=== PATIENT | female | born 1955 | race Hispanic/Latino ===

== ENCOUNTER 2018-03-05 19:21 | Emergency (ER) | payer OTHER, SELFPAY ==
--- OUTSIDE RECORDS SUMMARY | 2018-03-05 19:24 | XMS REPORT | Clinical Summary ---
:1955 Author Organization [facility] Address [address] [place] [address] Care Team Providers Name Role Phone Asked, No Pcp Primary Care Provider Unavailable Allergies Active Allergy Reactions Severity Noted Date Comments No Known Drug Allergies 08/19/2015 Medications Medication Sig Dispensed Refills Start Date End Date Status amLODIPine (NORVASC) Take 5 mg by 0 Active 10 mg tablet mouth daily. carvedilol (COREG) 25 Take 25 mg 0 Active MG tablet by mouth every 12 (twelve) hours. furosemide (LASIX) 80 Take 80 mg 0 Active mg tablet by mouth 2 (two) times a day. lisinopril Take 20 mg 0 Active (PRINIVIL,ZESTRIL) 20 by mouth mg tablet daily. ergocalciferol Take 50,000 0 Active (VITAMIN D2) 50,000 Units by unit capsule mouth once a week. insulin GLARGINE Inject under 0 Active (LANTUS) 100 unit/mL the skin See injection (vial) Admin Instructions . 20 units SQ in the am and 12 units SQ at bedtime. sevelamer (RENVELA) Take 3,200 0 Active 800 mg tablet mg by mouth 3 (three) times a day with meals. simvastatin (ZOCOR) Take 40 mg 0 Active 40 MG tablet by mouth nightly. ondansetron (ZOFRAN) Take 4 mg by 0 Active 4 MG tablet mouth every 8 (eight) hours as needed for nausea or vomiting. insulin ASPART Inject 5 0 Active (NovoLOG) 100 unit/mL Units under injection the skin 3 (three) times a day before meals. insulin lispro Inject 5 0 06/28/2017 Discontinued (HumaLOG) 100 unit/mL Units under injection the skin 3 (three) times a day before meals. Active Problems Problem Noted Date Type 2 diabetes mellitus with diabetic chronic kidney disease 06/28/2017 Encounters Date Type Specialty Care Team Description 12/09/2017 Documentation Transplant Michela Cordova Cardio clearance/echo/stress test (Cardio clearance 11/24/17, echo/stress test scanned in media. ) 12/07/2017 Documentation Transplant Desiree Angela 11/24/2017 Documentation Transplant Michela Cordova Cardio consult (Cardio consult 11/17/17 scanned in media.); Urology clearance (Urology clearance 11/15/17 scanned in media.) 11/15/2017 Hospital Encounter Radiology Ramonita, Starr Mesa, ESRD (end stage renal MD disease) 11/15/2017 Hospital Encounter Radiology Starr Shipman, ESRD (end stage renal MD disease) 11/15/2017 Hospital Encounter Transplant Luoise Wiggins MD 11/15/2017 Hospital Encounter Transplant Starr Shipman, ESRD (end stage renal MD disease) 11/14/2017 Lab Lab Starr Shipman MD 11/13/2017 Lab Lab Starr Shipman MD 11/12/2017 Lab Lab Starr Shipman MD 11/01/2017 Documentation Transplant Michela Cordova Emailed/mailed day 2/3 itinerary (Emailed/mailed itienrary to patient today and scanned in media. ) 10/28/2017 Documentation Transplant Michela Cordova Pt confirmed day 2/3 (14:29pm left msg stating I received pt's msg on 10/27/17 confirming her appts on November 152017 and I will mail out itinerary next week. ) 10/27/2017 Documentation Transplant Michela Cordova Left msg re: day 2/3 appts (12:32pm left msg for pt stating I have scheduled day 2/3 on November 152017 & to please return my call to confirm appts. ) 10/25/2017 Documentation Transplant Michela Cordova Pt returned call re: day 2/3 (08:28am Pt returned my call & pt is avail any Tues/Thur for Dec 2017. Told pt once appts have been schedule i will call her with dates to confirm. ) 10/24/2017 Documentation Transplant Michela Cordova left msg re: day 2/3 kidney eval (10:44am left msg on pt cell & sp w/dtr Stacey & she will have pt call me back after dialysis. pt avail /. ) 10/07/2017 Orders Only Transplant Lacho Mayberry RN ESRD (end stage renal disease) (Primary Dx) 09/27/2017 Hospital Encounter Transplant Louise Wiggins No Show MD 09/08/2017 Hospital Encounter Transplant Michoacano Wallace MD Breaux, Denise 09/08/2017 Hospital Encounter Radiology Rosalie Louise Wallace, ESRD (end stage renal MD disease) 09/08/2017 Hospital Encounter Radiology RosalieLouise, ESRD (end stage renal MD disease) 09/08/2017 Hospital Encounter Transplant RosalieLouise, ESRD (end stage renal MD disease) 09/08/2017 Orders Only Transplant Javid Gandara RN ESRD (end stage renal disease) (Primary Dx) 09/06/2017 Hospital Encounter Transplant Ana Luisa Mcdowell 09/06/2017 Hospital Encounter Transplant Michoacano Wallace MD Breaux, Denise 08/15/2017 Documentation Transplant Amparo Magana Consent Forms ( Scanned Consent For Kidney Transplant Evaluation, Pre Txp Education & OSMAN forms in Media. 08-11-2017 ) 08/11/2017 Hospital Encounter Transplant Louise Wiggins, ESRD (end stage renal MD disease) 08/11/2017 Hospital Encounter Transplant Louise Wiggins, ESRD (end stage renal MD disease) (Primary Dx) 08/11/2017 Hospital Encounter Transplant Louise Wiggins MD 08/11/2017 Telephone Transplant Sara Chavez Pre-kidney full eval day 1 07/13/2017 Documentation Transplant Desiree Angela 07/08/2017 Documentation Transplant Desiree Angela 06/28/2017 Telephone Transplant Amber Natarajan Referral - Kidney Txp SUNITA Welch (Re-referral) after 03/04/2017 Social History Tobacco Use Types Packs/Day Years Used Date Never Smoker Smokeless Tobacco: Never Used Sex Assigned at Date Recorded Not on file Job Start Date Occupation Industry Not on file Not on file Not on file Travel History Travel Start Travel End No recent travel history available. Last Filed Vital Signs Vital Sign Reading Time Taken Blood Pressure 194/89 08/11/2017 9:26 AM CDT Pulse 62 08/11/2017 9:26 AM CDT Temperature 35.6 C (96.1 F) 08/11/2017 9:22 AM CDT Respiratory Rate 17 08/11/2017 9:26 AM CDT Oxygen Saturation 98% 08/11/2017 9:26 AM CDT Inhaled Oxygen Concentration - - Weight 76 kg (167 lb 8.8 oz) 11/15/2017 1:57 PM CDT Height 160 cm (5' 3") 11/15/2017 1:57 PM CDT Body Mass Index 29.68 11/15/2017 1:57 PM CDT Plan of Treatment Health Maintenance Due Date Last Done Comments DIABETIC RETINAL EYE EXAM 1955 MMR VACCINES (1 of 1 - 1956 Standard series) DIABETIC FOOT EXAM 09/05/1967 HEPATITIS B VACCINES (1 of 3 1976 - Risk 3-dose series) SHINGRIX VACCINE (1 of 2) 09/05/2007 ZOSTER VACCINE 2017 INFLUENZA VACCINE 11/02/2017 BREAST CANCER SCREENING 11/16/2019 11/15/2017, 04/10/2015 CERVICAL CANCER SCREENING 08/11/2020 08/11/2017 COLON CANCER SCREENING 11/15/2027 11/14/2017, 11/13/2017, 11/12/2017, Additional history exists IPV VACCINES Aged Out No longer eligible based on patient's age to complete this topic MENINGOCOCCAL VACCINE Aged Out No longer eligible based on patient's age to complete this topic VARICELLA VACCINES Aged Out No longer eligible based on patient's age to complete this topic Procedures Procedure Name Priority Date/Time Associated Comments Diagnosis CT ANGIOGRAM ABDOMEN Routine 11/15/2017 2:41 ESRD (end stage Results for this PELVIS W AND OR WO PM CDT renal disease) procedure are in CONTRAST the results section. MAMMO DIAGNOSTIC W CAD Routine 11/15/2017 1:36 ESRD (end stage Results for this BILATERAL PM CDT renal disease) procedure are in the results section. LOW RESOLUTION FULL Routine 11/15/2017 7:18 Results for this TYPING BY SSO AM CDT procedure are in the results section. HLA AUTOLOGOUS Routine 11/15/2017 7:18 Results for this CROSSMATCH, AHG AM CDT procedure are in the results section. C1Q CLASS 1 & 2 ANTIBODY Routine 11/15/2017 7:18 Results for this AM CDT procedure are in the results section. SINGLE ANTIGEN BEADS Routine 11/15/2017 7:18 Results for this AM CDT procedure are in the results section. ZZESTIMATED GFR Routine 11/15/2017 7:18 Results for this AM CDT procedure are in the results section. ABORH - TRANSPLANT Routine 11/15/2017 7:18 ESRD (end stage Results for this AM CDT renal disease) procedure are in the results section. PARATHYROID HORMONE Routine 11/15/2017 7:18 ESRD (end stage Results for this AM CDT renal disease) procedure are in the results section. HSV TYPE 1/2 COMBINED Routine 11/15/2017 7:18 ESRD (end stage Results for this AB, IGM AM CDT renal disease) procedure are in the results section. HSV 1 & 2 GLYCOPROTEIN G Routine 11/15/2017 7:18 ESRD (end stage Results for this AB, IGG AM CDT renal disease) procedure are in the results section. HERPES SIMPLEX VIRUS BY Routine 11/15/2017 7:18 ESRD (end stage Results for this PCR AM CDT renal disease) procedure are in the results section. ENZO-MONROY VIRUS Routine 11/15/2017 7:18 ESRD (end stage Results for this ANTIBODY TEST AM CDT renal disease) procedure are in the results section. CYTOMEGALOVIRUS AB, IGM Routine 11/15/2017 7:18 ESRD (end stage Results for this AM CDT renal disease) procedure are in the results section. CYTOMEGALOVIRUS AB, IGG Routine 11/15/2017 7:18 ESRD (end stage Results for this AM CDT renal disease) procedure are in the results section. HEMOGLOBIN A1C Routine 11/15/2017 7:18 ESRD (end stage Results for this AM CDT renal disease) procedure are in the results section. LDH Routine 11/15/2017 7:18 ESRD (end stage Results for this AM CDT renal disease) procedure are in the results section. PHOSPHORUS LEVEL Routine 11/15/2017 7:18 ESRD (end stage Results for this AM CDT renal disease) procedure are in the results section. CREATININE LEVEL Routine 11/15/2017 7:18 ESRD (end stage Results for this AM CDT renal disease) procedure are in the results section. FASTING GLUCOSE LEVEL Routine 11/15/2017 7:18 ESRD (end stage Results for this AM CDT renal disease) procedure are in the results section. TRIGLYCERIDES Routine 11/15/2017 7:18 ESRD (end stage Results for this AM CDT renal disease) procedure are in the results section. CHOLESTEROL Routine 11/15/2017 7:18 ESRD (end stage Results for this AM CDT renal disease) procedure are in the results section. OCCULT BLOOD, STOOL Routine 11/14/2017 8:00 Results for this AM CDT procedure are in the results section. OCCULT BLOOD, STOOL Routine 11/13/2017 8:00 Results for this AM CDT procedure are in the results section. OCCULT BLOOD, STOOL Routine 11/12/2017 8:00 Results for this AM CDT procedure are in the results section. XR CHEST 2 VW Routine 09/08/2017 12:16 ESRD (end stage Results for this PM CDT renal disease) procedure are in the results section. US RENAL Routine 09/08/2017 12:00 ESRD (end stage Results for this PM CDT renal disease) procedure are in the results section. ECG 12-LEAD Routine 09/08/2017 11:14 ESRD (end stage Results for this AM CDT renal disease) procedure are in the results section. HEPATITIS A ANTIBODY IGM Routine 08/11/2017 12:10 Results for this PM CDT procedure are in the results section. ZZESTIMATED GFR Routine 08/11/2017 12:10 Results for this PM CDT procedure are in the results section. SERUM ELECTROPHORESIS Routine 08/11/2017 12:10 ESRD (end stage Results for this PM CDT renal disease) procedure are in the results section. C-PEPTIDE Routine 08/11/2017 12:10 ESRD (end stage Results for this PM CDT renal disease) procedure are in the results section. TB T-SPOT Routine 08/11/2017 12:10 ESRD (end stage Results for this PM CDT renal disease) procedure are in the results section. NICOTINE AND Routine 08/11/2017 12:10 ESRD (end stage Results for this METABOLITES, SERUM PM CDT renal disease) procedure are in the results section. DRUG MESA 9, SER/TRUDI, Routine 08/11/2017 12:10 ESRD (end stage Results for this SCRN W/RFLX TO CONF PM CDT renal disease) procedure are in the results section. ABORH - TRANSPLANT Routine 08/11/2017 12:10 ESRD (end stage Results for this PM CDT renal disease) procedure are in the results section. PARTIAL THROMBOPLASTIN Routine 08/11/2017 12:10 ESRD (end stage Results for this TIME (PTT) PM CDT renal disease) procedure are in the results section. PROTHROMBIN TIME WITH Routine 08/11/2017 12:10 ESRD (end stage Results for this INR PM CDT renal disease) procedure are in the results section. HC COMPLETE BLD COUNT Routine 08/11/2017 12:10 ESRD (end stage Results for this W/AUTO DIFF PM CDT renal disease) procedure are in the results section. SYPHILIS TREPONEMAL IGG Routine 08/11/2017 12:10 ESRD (end stage Results for this PM CDT renal disease) procedure are in the results section. HEPATITIS C ANTIBODY Routine 08/11/2017 12:10 ESRD (end stage Results for this PM CDT renal disease) procedure are in the results section. HEPATITIS B SURFACE AB, Routine 08/11/2017 12:10 ESRD (end stage Results for this QUANTITATIVE PM CDT renal disease) procedure are in the results section. HEPATITIS B SURFACE Routine 08/11/2017 12:10 ESRD (end stage Results for this ANTIGEN PM CDT renal disease) procedure are in the results section. HEPATITIS B SURFACE Routine 08/11/2017 12:10 ESRD (end stage Results for this ANTIBODY PM CDT renal disease) procedure are in the results section. HEPATITIS B CORE Routine 08/11/2017 12:10 ESRD (end stage Results for this ANTIBODY TOTAL PM CDT renal disease) procedure are in the results section. HEPATITIS A ANTIBODY Routine 08/11/2017 12:10 ESRD (end stage Results for this TOTAL PM CDT renal disease) procedure are in the results section. HIV AG/AB COMBINATION Routine 08/11/2017 12:10 ESRD (end stage Results for this PM CDT renal disease) procedure are in the results section. URINALYSIS SCREEN AND Routine 08/11/2017 12:10 ESRD (end stage Results for this MICROSCOPY, WITH REFLEX PM CDT renal disease) procedure are in TO CULTURE the results section. COMPREHENSIVE METABOLIC Routine 08/11/2017 12:10 ESRD (end stage Results for this PANEL PM CDT renal disease) procedure are in the results section. GRAM STAIN Routine 08/11/2017 12:10 Results for this PM CDT procedure are in the results section. URINE CULTURE Routine 08/11/2017 12:10 Results for this PM CDT procedure are in the results section. after 03/04/2017 Results CTA Abdomen Pelvis W And Or Wo Contrast (11/15/2017 2:41 PM CDT) Narrative Performed At EXAMINATION:CT ANGIOGRAM ABDOMEN PELVIS W AND OR WO CONTRAST [facility] CLINICAL HISTORY:N18.6 End stage renal disease, Renal Transplant Evaluation COMPARISON:04/10/2015 TECHNIQUE:Multiple CT angiographic images of the abdomen and pelvis were obtained during intravenous administration of contrast. Multiple computerized reformatted images as well as 3-D volume rendered images were also obtained. CT imaging was performed with iterative reconstruction technique and/or automated exposure control to reduce radiation dose. IMPRESSION: CTA: 1.The abdominal aorta is normal in course and caliber. Multifocal atherosclerotic calcifications throughout the course of the aorta, some of which are near circumferential.No aneurysmal dilatation, flow limiting stenosis, or evidence of dissection. 2.The celiac, superior mesenteric, and inferior mesenteric arteries are widely patent. 3.Diminutive right renal artery with up to 50% stenosis at the ostium. Segment of high-grade stenosis, greater than 75% in the proximal left renal artery. 4.Few tiny punctate atherosclerotic calcifications in the bilateral external iliac arteries. The common iliac, external iliac, internal iliac, common femoral, and visualized portions of the superficial femoral, and profunda femoral arteries are widely patent. ABDOMEN/PELVIS: 1.Mild dependent atelectasis in the visualized lung bases. Mild cardiomegaly. Reflux of contrast into the hepatic veins, possible component of right heart failure. 2.Liver is otherwise unremarkable. Trace perihepatic ascites extends into the paracolic gutter and deep pelvis. 3.Trace pericholecystic fluid, likely due to underlying fluid status. Unremarkable adrenals and spleen. Fatty infiltration of the pancreas. 4.The [place] kidneys are atrophic. Hypoattenuating lesion in the upper pole right kidney measures 8 mm, too small to fully characterize but most likely cyst. 5.Small hiatal hernia. Unremarkable small bowel. Unremarkable colon. 6.Normal bladder. No free fluid. Normal uterus 7.No acute osseous abnormality. Posterior broad-based disc bulges at the L4-L5 and L5-S1 levels. 8.Few prominent retroperitoneal lymph nodes are not significantly changed compared to prior exam. SUMMARY: 1.Few tiny punctate atherosclerotic wall calcifications in the bilateral external iliac arteries. The arteries are widely patent without aneurysmal dilation, dissection, or flow-limiting stenosis. 2.Other findings as above. [id number] Procedure Note Hm Interface, Radiology Results Incoming - 11/15/2017 3:03 PM CDT EXAMINATION: CT ANGIOGRAM ABDOMEN PELVIS W AND OR WO CONTRAST CLINICAL HISTORY: N18.6 End stage renal disease, Renal Transplant Evaluation COMPARISON: 04/10/2015 TECHNIQUE: Multiple CT angiographic images of the abdomen and pelvis were obtained during intravenous administration of contrast. Multiple computerized reformatted images as well as 3-D volume rendered images were also obtained. CT imaging was performed with iterative reconstruction technique and/or automated exposure control to reduce radiation dose. IMPRESSION: CTA: 1. The abdominal aorta is normal in course and caliber. Multifocal atherosclerotic calcifications throughout the course of the aorta, some of which are near circumferential. No aneurysmal dilatation, flow limiting stenosis, or evidence of dissection. 2. The celiac, superior mesenteric, and inferior mesenteric arteries are widely patent. 3. Diminutive right renal artery with up to 50% stenosis at the ostium. Segment of high-grade stenosis, greater than 75% in the proximal left renal artery. 4. Few tiny punctate atherosclerotic calcifications in the bilateral external iliac arteries. The common iliac, external iliac, internal iliac, common femoral , and visualized portions of the superficial femoral, and profunda femoral arteries are widely patent. ABDOMEN/PELVIS: 1. Mild dependent atelectasis in the visualized lung bases. Mild cardiomegaly. Reflux of contrast into the hepatic veins, possible component of right heart failure. 2. Liver is otherwise unremarkable. Trace perihepatic ascites extends into the paracolic gutter and deep pelvis. 3. Trace pericholecystic fluid, likely due to underlying fluid status. Unremarkable adrenals and spleen. Fatty infiltration of the pancreas. 4. The [place] kidneys are atrophic. Hypoattenuating lesion in the upper pole right kidney measures 8 mm, too small to fully characterize but most likely cyst. 5. Small hiatal hernia. Unremarkable small bowel. Unremarkable colon. 6. Normal bladder. No free fluid. Normal uterus 7. No acute osseous abnormality. Posterior broad-based disc bulges at the L4- L5 and L5-S1 levels. 8. Few prominent retroperitoneal lymph nodes are not significantly changed compared to prior exam. SUMMARY: 1. Few tiny punctate atherosclerotic wall calcifications in the bilateral external iliac arteries. The arteries are widely patent without aneurysmal dilation, dissection, or flow-limiting stenosis. 2. Other findings as above. [id number] Performing Organization Address City/State/Zipcode Phone Number [facility] [address] [place] [address] Mammo Diagnostic w Cad Bilateral (11/15/2017 1:36 PM CDT) Narrative Performed At EXAMINATION:MAMMO DIAGNOSTIC W CAD BILATERAL HM [facility] INDICATION: COMPARISON:None. FINDINGS: The breasts are heterogeneously dense which, may obscure small masses.There is no suspicious mass, distortion, asymmetry, or suspicious microcalcifications.Bilateral vascular calcification. Small microclip noted anterior left breast. No other changes from prior exam. IMPRESSION:2016 mammogram RECOMMENDATION: Recommend annual follow-up if there is no interval change in the physical examination. BI-RADS 2: BENIGN. [id number] Performing Organization Address City/[facility]/Zipcode Phone Number [facility] [address] [place] [phone] Low resolution full typing by [facility] (11/15/2017 7:18 AM CDT) [facility] DEPARTMENT OF PATHOLOGY AND GENOMIC MEDICINE Low resolution full typing See link below for PDF [facility] DEPARTMENT OF by SSO Lab Report PATHOLOGY AND GENOMIC MEDICINE Performing Organization Address City/[facility] Phone Number [facility] DEPARTMENT OF PATHOLOGY AND [address] [place] [phone] GENOMIC MEDICINE C1Q class 1 & 2 antibody (11/15/2017 7:18 AM CDT) [facility] DEPARTMENT OF PATHOLOGY AND GENOMIC MEDICINE C1Q class 1 & 2 antibody See link below for PDF [facility] DEPARTMENT OF PATHOLOGY Lab Report AND GENOMIC MEDICINE Performing Organization Address [facility] Phone Number [facility] DEPARTMENT OF PATHOLOGY AND [address] [place] [phone] [facility] MEDICINE HSV 1 & 2 glycoprotein G Ab, IgG (11/15/2017 7:18 AM CDT) HSV 1 glycoprotein G Ab, Positive (A) Negative [facility] DEPARTMENT OF IgG Comment: PATHOLOGY AND GENOMIC Positive results may indicate current or past HSV infection. MEDICINE For acute illness, viral PCR and IgM testing are recommended. Individuals infected with HSV may not exhibit detectable antibodies in cases of early infection. HSV 2 glycoprotein G Ab, Positive (A) Negative [facility] DEPARTMENT OF IgG Comment: PATHOLOGY AND GENOMIC Positive results may indicate current or past HSV infection. MEDICINE For acute illness, viral PCR and IgM testing are recommended. Individuals infected with HSV may not exhibit detectable antibodies in cases of early infection. Specimen Serum Performing Organization Address City/State/Zipcode Phone Number [facility] DEPARTMENT OF PATHOLOGY AND [address] [place] [phone] [facility] Enzo-Monroy virus antibody test (11/15/2017 7:18 AM CDT) EBV Ab to viral capsid Ag, Positive (A) Negative [facility] DEPARTMENT OF IgG PATHOLOGY AND GENOMIC MEDICINE EBV Ab to viral capsid Ag, Negative Negative [facility] DEPARTMENT OF IgM PATHOLOGY AND [facility] EBV Ab to nuclear Ag, IgG Positive (A) Negative [facility] DEPARTMENT OF PATHOLOGY AND GENOMIC MEDICINE EBV Ab to early (D) Ag, IgG Negative Negative [facility] DEPARTMENT OF PATHOLOGY AND GENOMIC MEDICINE Enzo-Monroy virus antibody SEE COMMENTComment: [facility] DEPARTMENT OF interpretation Infection Status: PATHOLOGY AND GENOMIC Results may suggest MEDICINE past EBV infection. Specimen Serum Performing Organization Address City/State/[facility] Phone Number [facility] DEPARTMENT OF PATHOLOGY AND [address] [place] [phone] [place] [address] Single antigen beads (11/15/2017 7:18 AM CDT) [facility] DEPARTMENT OF PATHOLOGY AND GENOMIC MEDICINE Single antigen beads See link below for PDF [facility] DEPARTMENT OF PATHOLOGY Lab Report AND GENOMIC MEDICINE Performing Organization Address City/[facility] Cent[facility] Phone Number [facility] DEPARTMENT OF PATHOLOGY AND [address] [place], [place] [phone] [facility] HSV type 1/2 combined Ab, IgM (11/15/2017 7:18 AM CDT) HSV 1/2 combined Ab, IgM 0.70 <=0.89 IV [facility] Comment: INTERPRETIVE INFORMATION: Herpes Simplex Virus Type 1 and/or 2 Antibodies, IgM by PUJA 0.89 IV or Less .......... Not Detected 0.90 - 1.09 IV ........... Indeterminate- Repeat testing in 10-14 days may be helpful. 1.10 IV or Greater ....... Detected-IgM antibody to HSV detected, which may indicate a current or recent infection. However, low levels of IgM antibodies may occasionally persist for more than 12 months post- infection. Performed by [facility], [address] [place] [phone] [email or web address], Von Villar MD - Lab. Director Specimen Serum Performing Organization Address City/State/Zipcode Phone Number [facility] [address] [place] [address] HLA autologous crossmatch, AHG (11/15/2017 7:18 AM CDT) [facility] DEPARTMENT OF PATHOLOGY AND GENOMIC MEDICINE HLA autologous crossmatch See link below for PDF [facility] DEPARTMENT OF Lab Report PATHOLOGY AND GENOMIC MEDICINE Performing Organization Address City/[facility] Cent[facility]ode Phone Number [facility] DEPARTMENT OF PATHOLOGY AND [address] [place] [address] Herpes simplex virus by PCR (11/15/2017 7:18 AM CDT) Herpes virus, PCR Not-Detected Not-Detected [facility] DEPARTMENT OF PATHOLOGY AND GENOMIC MEDICINE Herpes virus, PCR See link below for PDF [facility] DEPARTMENT OF PATHOLOGY Lab ReportComment: Case AND GENOMIC MEDICINE Number: [id number] Performing Organization Address [facility]ode Phone Number [facility] DEPARTMENT OF PATHOLOGY AND [address] [place] [address] Estimated GFR (11/15/2017 7:18 AM CDT)Only the most recent of2 resultswithin the time period is included. GFR Non Af Amer 11 (A) mL/min/1.73 m2 [facility] DEPARTMENT OF PATHOLOGY AND GENOMIC MEDICINE GFR Af Amer 13 (A) mL/min/1.73 m2 [facility] DEPARTMENT OF Comment: PATHOLOGY AND GENOMIC Chronic kidney disease: <60 mL/min/1.73m2 MEDICINE Kidney failure: <15 mL/min/1.73m2 The estimated GFR is calculated from the IDMS-traceable Modification of Diet in Renal Disease Equation. The accuracy of the calculation is poor when the creatinine is normal. Calculated values >90 mL/min/1.73m2 are not reported. This equation has not been validated in children (<18 years), women, the elderly (>70 years), or ethnic groups other than Caucasians and Americans. Specimen Plasma specimen Performing Organization Address City/[facility] Cent[facility]ode Phone Number [facility] DEPARTMENT OF PATHOLOGY AND [address] [place] [address] Cytomegalovirus Ab, IgM (11/15/2017 7:18 AM CDT) Cytomegalovirus Ab, IgM NegativeComment: Negative: Negative [facility] DEPARTMENT OF CMV IgM antibodies were PATHOLOGY AND GENOMIC not detected. MEDICINE Specimen Serum Performing Organization Address [facility] Centercode Phone Number [facility] DEPARTMENT OF PATHOLOGY AND [address] [place] [address] ABORh - transplant (11/15/2017 7:18 AM CDT)Only the most recent of2 resultswithin the time period is included. ABO grouping O [facility] DEPARTMENT OF PATHOLOGY AND GENOMIC MEDICINE Rh type POS [facility] DEPARTMENT OF PATHOLOGY AND GENOMIC MEDICINE Specimen Blood Performing Organization Address [facility] Centercode Phone Number [facility] DEPARTMENT OF PATHOLOGY AND [address] [place] [address] Cytomegalovirus Ab, IgG (11/15/2017 7:18 AM CDT) Cytomegalovirus Ab, IgG Positive (A) Negative [facility] DEPARTMENT OF Comment: PATHOLOGY AND GENOMIC Positive; IgG antibody to CMV detected which may indicate MEDICINE exposure to CMV infection. Specimen Serum Performing Organization Address [facility] Phone Number [facility] DEPARTMENT OF PATHOLOGY AND [address] [place] [address] Triglycerides (11/15/2017 7:18 AM CDT) Triglycerides 103 <150 mg/dL [facility] DEPARTMENT OF PATHOLOGY AND GENOMIC MEDICINE Specimen Plasma specimen Performing Organization Address [facility] Phone Number [facility] DEPARTMENT OF PATHOLOGY AND [address] [place] [address] Phosphorus level (11/15/2017 7:18 AM CDT) Phosphorus 4.3 2.4 - 4.5 mg/dL [facility] DEPARTMENT OF PATHOLOGY AND GENOMIC MEDICINE Specimen Plasma specimen Performing Organization Address [facility]ode Phone Number [facility] DEPARTMENT OF PATHOLOGY AND [address] [place] [address] Parathyroid hormone (11/15/2017 7:18 AM CDT) PTH 278 (H) 15 - 65 pg/mL [facility] DEPARTMENT OF PATHOLOGY AND GENOMIC MEDICINE Specimen Blood Performing Organization Address [facility] Phone Number [facility] DEPARTMENT OF PATHOLOGY AND [address] [place] [address] LDH (11/15/2017 7:18 AM CDT) LDH 304 (H) 87 - 225 U/L [facility] DEPARTMENT OF PATHOLOGY AND GENOMIC MEDICINE Specimen Plasma specimen Performing Organization Address [facility] Phone Number [facility] DEPARTMENT OF PATHOLOGY AND [address] [place] [address] [facility] MEDICINE Hemoglobin A1c (11/15/2017 7:18 AM CDT) Hemoglobin A1C 8.6 (H) 4.0 - 5.6 % [facility] DEPARTMENT OF PATHOLOGY Comment: AND [facility] MEDICINE HbA1c cutoffs for diagnosing diabetes: 4.0% - 5.6%=normal 5.7% - 6.4%=increased risk for diabetes (prediabetes) >=6.5%=diabetes Goals for glycemic control (ADA 2016) < 7.0%Target for non adults with diabetes. More or less stringent targets may be appropriate for individual patients. <7.5% Target for Children and adolescents with type 1 diabetes. Specimen Blood Performing Organization Address City/[facility]ercode Phone Number [facility] DEPARTMENT OF PATHOLOGY AND [address] [place] [phone] [place] [address] Fasting glucose level (11/15/2017 7:18 AM CDT) Glucose, fasting 176 (H) 65 - 99 mg/dL [facility] DEPARTMENT OF PATHOLOGY AND GENOMIC MEDICINE Specimen Blood Performing Organization Address [facility] Centercode Phone Number [facility] DEPARTMENT OF PATHOLOGY AND [address] [place], [place] [phone] [facility] Creatinine level (11/15/2017 7:18 AM CDT) Creatinine 4.1 (H) 0.5 - 0.9 mg/dL [facility] DEPARTMENT OF PATHOLOGY AND GENOMIC MEDICINE Specimen Plasma specimen Performing Organization Address [facility]ercode Phone Number [facility] DEPARTMENT OF PATHOLOGY AND [address] [place], [place] [phone] [facility] Cholesterol (11/15/2017 7:18 AM CDT) Cholesterol 184 <200 mg/dL [facility] DEPARTMENT OF PATHOLOGY AND GENOMIC MEDICINE Specimen Plasma specimen Performing Organization Address [facility]ercode Phone Number [facility] DEPARTMENT OF PATHOLOGY AND [address] [place] [address] Occult blood, stool (11/14/2017 8:00 AM CDT)Only the most recent of3 resultswithin the time period is included. Occult blood, stool Negative for occult blood. [facility] DEPARTMENT OF PATHOLOGY Comment: AND [facility] MEDICINE Specimen Information Specimen Source: Stool Specimen Site: Nonpreserved Specimen Stool - Nonpreserved Performing Organization Address City/[facility]ercode Phone Number [facility] DEPARTMENT OF PATHOLOGY AND [address] [place] [address] GENOMIC MEDICINE XR Chest 2 Vw (09/08/2017 12:16 PM CDT) Narrative Performed At EXAMINATION:XR CHEST 2 VW HM RADIANT CLINICAL HISTORY:N18.6 End stage renal disease, Renal Transplant Evaluation COMPARISON:To a previous examination from 12/26/2014 IMPRESSION: Changes related midline sternotomy are present. The heart is prominent, and the lungs are clear. [id number] Procedure Note Interface, Radiology Results Incoming - 09/08/2017 12:22 PM CDT EXAMINATION: XR CHEST 2 VW CLINICAL HISTORY: N18.6 End stage renal disease, Renal Transplant Evaluation COMPARISON: To a previous examination from 12/26/2014 IMPRESSION: Changes related midline sternotomy are present. The heart is prominent, and the lungs are clear. [id number] Performing Organization Address [facility] Centercome Phone Number [facility] [address] [place] [address] [place] Renal (09/08/2017 12:00 PM CDT) Narrative Performed At EXAMINATION:US RENAL RADIANT CLINICAL HISTORY:N18.6 End stage renal disease, Renal Transplant Evaluation COMPARISON:04/10/2015 TECHNIQUE:Ultrasound evaluation of the kidneys and bladder. IMPRESSION: 1.The right kidney measures 9.9 x 2.8 x 3.9 cm.The left kidney measures 9.5 x 2.6 x 3.2 cm.There is mild bilateral increased renal cortical echogenicity compatible with renal parenchymal disease. 2.No hydronephrosis or solid mass lesions. A 1.4 cm right simple renal cyst is seen. 3.Bladder was empty. [id number] Procedure Note Interface, Radiology Results Incoming - 09/08/2017 3:11 PM CDT EXAMINATION: US RENAL CLINICAL HISTORY: N18.6 End stage renal disease, Renal Transplant Evaluation COMPARISON: 04/10/2015 TECHNIQUE: Ultrasound evaluation of the kidneys and bladder. IMPRESSION: 1. The right kidney measures 9.9 x 2.8 x 3.9 cm. The left kidney measures 9.5 x 2.6 x 3.2 cm. There is mild bilateral increased renal cortical echogenicity compatible with renal parenchymal disease. 2. No hydronephrosis or solid mass lesions. A 1.4 cm right simple renal cyst is seen. 3. Bladder was empty. [id number] Performing Organization Address City/[facility] Centercode Phone Number [facility] [address] [place] [address] EKG 12-LEAD (09/08/2017 11:14 AM CDT) Ventricular rate 61 H MUSE Atrial rate 61 [facility] MUSE [place] interval 134 [facility] MUSE QRSD interval 100 [facility] MUSE QT interval 494 [facility] MUSE QTC interval 497 [facility] MUSE P axis 1 46 [facility] MUSE QRS axis 1 11 [facility] MUSE T wave axis 164 [facility] MUSE EKG impression Normal sinus rhythm-Possible Left atrial enlargement-Left ventricular hypertrophy-ST & T wave abnormality, consider lateral ischemia- Prolonged QT-Abnormal ECG-In automated comparison with ECG of -DEC-2014 14:35, -No significant change was [facility] MUSE found- : 04 PM Performing Organization Address [facility]ercome Phone Number [facility] MUSE [address] [place] [address] Syphilis treponemal IgG (08/11/2017 12:10 PM CDT) Syphilis treponemal IgG Non-reactiveComment: Non-reactive [facility] DEPARTMENT OF Non-reactive: No PATHOLOGY AND GENOMIC serological evidence of MEDICINE Syphilis infection Specimen Serum Performing Organization Address [facility] Phone Number [facility] DEPARTMENT OF PATHOLOGY AND [address] [place] [phone] [facility] MEDICINE Urinalysis screen and microscopy, with reflex to culture (08/11/2017 12:10 PM CDT) Specimen site Clean catch [facility] DEPARTMENT OF PATHOLOGY AND GENOMIC MEDICINE Color, UA Yellow [facility] DEPARTMENT OF PATHOLOGY AND GENOMIC MEDICINE Appearance, UA Cloudy [facility] DEPARTMENT OF PATHOLOGY AND GENOMIC MEDICINE Specific gravity, UA 1.008 1.001 - 1.035 [facility] DEPARTMENT OF PATHOLOGY AND GENOMIC MEDICINE pH, UA 9.0 5.0 - 8.5 [facility] DEPARTMENT OF PATHOLOGY AND GENOMIC MEDICINE Protein, UA 3+ (A) Negative [facility] DEPARTMENT OF PATHOLOGY AND GENOMIC MEDICINE Glucose, UA 3+ (A) Negative [facility] DEPARTMENT OF PATHOLOGY AND GENOMIC MEDICINE Ketones, UA Negative Negative [facility] DEPARTMENT OF PATHOLOGY AND GENOMIC MEDICINE Bilirubin, UA Negative Negative [facility] DEPARTMENT OF PATHOLOGY AND GENOMIC MEDICINE Blood, UA Negative Negative [facility] DEPARTMENT OF PATHOLOGY AND GENOMIC MEDICINE Nitrite, UA Negative Negative [facility] DEPARTMENT OF PATHOLOGY AND GENOMIC MEDICINE Urobilinogen, UA <2.0 <2.0 [facility] DEPARTMENT OF PATHOLOGY AND GENOMIC MEDICINE Leukocyte esterase, UA Negative Negative [facility] DEPARTMENT OF PATHOLOGY AND GENOMIC MEDICINE Epithelial cells, UA >20 /HPF [facility] DEPARTMENT OF PATHOLOGY AND GENOMIC MEDICINE WBC, UA 18 (H) 0 - 4 /HPF [facility] DEPARTMENT OF PATHOLOGY AND GENOMIC MEDICINE RBC, UA 5 0 - 5 /HPF [facility] DEPARTMENT OF PATHOLOGY AND GENOMIC MEDICINE Bacteria, UA Moderate (A) None seen [facility] DEPARTMENT OF PATHOLOGY AND GENOMIC MEDICINE Yeast, UA None seen [facility] DEPARTMENT OF PATHOLOGY AND GENOMIC MEDICINE Yeast with pseudohyphae, UA None seen [facility] DEPARTMENT OF PATHOLOGY AND GENOMIC MEDICINE Amorphous crystals Few [facility] DEPARTMENT OF PATHOLOGY AND GENOMIC MEDICINE Specimen Urine Performing Organization Address City/[facility]/Zipcode Phone Number [facility] DEPARTMENT OF PATHOLOGY AND [address] [place] [address] [facility] HIV Ag/Ab combination (08/11/2017 12:10 PM CDT) HIV Ag/Ab combination Non-reactive Non-reactive [facility] DEPARTMENT OF PATHOLOGY AND GENOMIC MEDICINE Specimen Blood Performing Organization Address City/[facility]/Zipcode Phone Number [facility] DEPARTMENT OF PATHOLOGY AND [address] [place] [address] [facility] TB T-SPOT (08/11/2017 12:10 PM CDT) TB T-SPOT SEE NOTE [facility] DEPARTMENT OF PATHOLOGY Comment: AND GENOMIC MEDICINE T-SPOT TUBERCULOSIS Nil Control: 0 Panel A: 0 Panel B: 0 Positive Control: TMTC Result: NEGATIVE NOTE: TMTC INDICATES TOO MANY SPOTS TO COUNT SAT INDICATES THE WELL WAS SATURATED RESULTS INTERPRETATION: RESULTS ARE NEGATIVE WHEN (PANEL A-NIL) OR (PANEL B-NIL) <=4 SPOTS, INCLUDING VALUES LESS THAN ZERO. RESULTS ARE POSITIVE WHEN (PANEL A-NIL) OR (PANEL B-NIL) >=8 SPOTS RESULTS ARE BORDERELINE WHEN EITHER (PANEL A-NIL) OR (PANEL B-NIL)=5,6,0R 7. THE TEST IS INVALID WHEN EITHER OF THE FOLLOWING CONDITIONS IS MET: 1.) THE NIL CONTROL HAS >10 SPOTS 2.) THE MITOGEN (POSITIVE CONTROL) HAS <20 SPOTS AND BOTH (PANEL A-NIL) AND (PANEL B-NIL) <=4 SPOTS. M. TUBERCULOSIS INFECTION UNLIKELY, BUT CANNOT BE EXCLUDED ESPECIALLY WHEN: 1. ANY ILLNESS IS CONSISTENT WITH TB DISEASE. 2. LIKELIHOOD OF PROGRESSION TO DISEASE (e.g. DUE TO IMMUNOSUPPRESSION) IS INCREASED. LIMITATIONS: DIAGNOSING OR EXCLUDING TUBERCULOSIS DISEASE, AND ASSESSING THE PROBABILITY OF LTBI, REQUIRES A COMBINATION OF EPIDEMIOLOGICAL, HISTORICAL, MEDICAL, AND DIAGNOSTIC FINDINGS THAT SHOULD BE TAKEN INTO ACCOUNT WHEN INTERPRETING T-SPOT.TB REFER TO THE MOST RECENT CDC GUIDANCE (HTTP: //WWW.CDC.GOV/NCHSTP/TB) FOR DETAILED RECOMMENDATIONS ABOUT DIAGNOSING TB INFECTION (INCLUDING DISEASE) AND SELECTING PERSONS FOR TESTING. 1.) A FALSE NEGATIVE RESULT CAN BE CAUSED BY INCORRECT BLOOD SAMPLE COLLECTION OR IMPROPER HANDLING OF THE SPECIMEN, AFFECTING LYMPHOCYTE FUNCTION 2.) THE PERFORMANCE OF T-SPOT.TB HAS NOT BEEN ADEQUATELY EVALUATED WITH SPECIMENS FROM INDIVIDUALS YOUNGER THANAGE 17 YEARS, IN WOMEN, AND IN PATIENTS WITH HEMOPHILIA. 3-) A FALSE POSITIVE RESULT WAS OBTAINED FOR T-SPOT.TB WHEN TESTED IN SUBJECTS WITH M. XENOPI, M. KANSASII, AND M. GORDONAE.WHILE ESAT-6 AND CFP-10 ANTIGENS ARE ABSENT FROM BCG STRAINS OF M. BOVIS AND FROM MOST ENVIRONMENTAL MYCOBACTERIA, IT IS POSSIBLE THAT A POSITIVE T-SPOT.TB RESULT MAY BE DUE TO INFECTION WITH M. KANSASII, M. SZULGAI, M. GORDONAE, OR M. MARINUM. ALTERNATIVE TESTS WOULD BE REQUIRED IF THESE INFECTIONS ARE SUSPECTED. 4.) A NEGATIVE TEST RESULT DOES NOT EXCLUDE THE POSSIBILITY OF EXPOSURE TO, OR INFECTION WITH, M. TUBERCULOSIS. PATIENTS WITH RECENT EXPOSURE TO TB INFECTED INDIVIDUALS EXHIBITING A NEGATIVE T-SPOT.TB RESULT SHOULD BE CONSIDERED FOR RETESTING WITHIN 6 WEEKS OR IF OTHER RELEVANT CLINICAL SYMPTOMS INDICATE POSSIBLE INFECTION. 5.) A POSITIVE TEST RESULT DOES NOT RULE IN ACTIVE TB DISEASE; OTHER TESTS SHOULD BE PERFORMED TO CONFIRM THE DIAGNOSIS OF ACTIVE TB DISEASE SUCH SPUTUM SMEAR AND CULTURE, PCR AND CHEST RADIOGRAPHY. 6.) T-SPOT.TB TEST HAS NOT BEEN EVALUATED IN SUBJECTS WHO HAVE RECEIVED >1 MONTH OF ANTI-TB THERAPY. 7. ) REFRIGERATED AND FROZEN SAMPLES ARE NOT RECOMMENDED FOR USE WITH T=SPOT.TB TEST. Performed by: [facility] Molecular Tuberculosis Laboratory [facility] ([id number]) [place], [place] [address] Specimen Blood Performing Organization Address City/State/[facility]ercode Phone Number [facility] DEPARTMENT OF PATHOLOGY AND [address] Nicotine and metabolites, serum (08/11/2017 12:10 PM CDT) Nicotine <2.0 0.0 - 2.0 ng/mL [facility] DEPARTMENT OF PATHOLOGY AND GENOMIC MEDICINE Cotinine <2.0 0.0 - 2.0 ng/mL [facility] DEPARTMENT OF PATHOLOGY AND GENOMIC MEDICINE [id number] <5.0 0.0 - 5.0 ng/mL [facility] DEPARTMENT OF Comment: PATHOLOGY AND GENOMIC This test was developed and its performance characteristics determined by MEDICINE the Department of Pathology and Genomic Medicine, [facility]. Serum nicotine and its metabolites cotinine and 3-LE-wmryvrta are tested by HPLC tandem mass spectrometry. It has not been cleared or approved by FDA. The laboratory is regulated under CLIA as qualified to perform high-complexity testing. This test is used for clinical purposes. It should not be regarded as investigational or for research. Specimen Blood Performing Organization Address [facility]ercome Phone Number [facility] DEPARTMENT OF PATHOLOGY AND [address] [place] [address] Hepatitis B surface Ab, quantitative (08/11/2017 12:10 PM CDT) Hepatitis B surface Ab 498.89 IU/L [facility] Comment: The anti-HBs is greater than or equal to 10 IU/L. This patient has either had an antibody response to HBV vaccination, received a transfusion, or has recovered from HBV infection. This patient should be considered immune to hepatitis B. An anti-HBs result greater than or equal to 10 IU/L implies immunity. For post-vaccination antibody testing guidelines for the general public refer to MMWR March 26, 2005/Vol. 54(No. 16);1-23, and for healthcare workers refer to MMWR March 23, 2013/Vol. 62(No. 10);1-19. Reference Interval: anti-HBs 9.99 IU/L or less ....... Negative 10.00 IU/L or greater .... Positive Results greater than 1,000.00 IU/L are reported as greater than 1,000.00 IU/L. This assay should not be used for blood donor screening, associated re-entry protocols, or for screening Human Cell, Tissues and Cellular and Tissue-Based Products (HCT/P). Performed by [facility], [address] [place] [address] [email or web address], Von Villar MD - Lab. Director Specimen Serum Performing Organization Address City/[facility] Centercode Phone Number [facility] [address] [place] [address] Hepatitis C antibody (08/11/2017 12:10 PM CDT) Hepatitis C Ab Non-reactive Non-reactive [facility] DEPARTMENT OF PATHOLOGY AND GENOMIC MEDICINE Specimen Blood Performing Organization Address City/[facility] Phone Number [facility] DEPARTMENT OF PATHOLOGY AND [address] [place] [address] Hepatitis A antibody IgM (08/11/2017 12:10 PM CDT) Hepatitis A IgM Non-reactive Non-reactive [facility] DEPARTMENT OF PATHOLOGY AND GENOMIC MEDICINE Performing Organization Address [facility] Phone Number [facility] DEPARTMENT OF PATHOLOGY AND [address] [place] [address] Hepatitis A antibody total (08/11/2017 12:10 PM CDT) Hepatitis A total Ab Reactive (A) Non-reactive [facility] DEPARTMENT OF Comment: PATHOLOGY AND GENOMIC Hepatitis A Total Antibody reactive. Hepatitis A IgM antibody MEDICINE will be performed and reported separately when completed. Specimen Blood Performing Organization Address [facility]ome Phone Number [facility] DEPARTMENT OF PATHOLOGY AND [address] [place] [address] Drug mesa 9, ser/trudi, scrn w/rflx to conf (08/11/2017 12:10 PM CDT) Amphetamines, s/p, Negative Cutoff 30 ng/mL [facility] screen Methamphetamine, s/p, Negative Cutoff 30 ng/mL [facility] screen Barbiturates, s/p, Negative Cutoff 75 ng/mL [facility] screen Benzodiazepines, s/p, Negative Cutoff 75 ng/mL [facility] screen Cocaine, s/p, screen Negative Cutoff 30 ng/mL [facility] Methadone, s/p, screen Negative Cutoff 40 ng/mL [facility] Opiates, s/p, screen Negative Cutoff 30 ng/mL [facility] Oxycodone, s/p, screen Negative Cutoff 30 ng/mL [facility] Phencyclidine, s/p, Negative Cutoff 15 ng/mL [facility] screen Cannabinoids, s/p, Negative Cutoff 30 ng/mL [facility] screen Drug screen comments, See Note [facility] serum Comment: INTERPRETIVE INFORMATION: Drug Screen 9 Panel, Serum or Plasma - Immunoassay Screen with Reflex to Mass Spectrometry Confirmation/ Quantitation 1. Methodology: Qualitative Immunoassay Screen 2. Drugs/Drug classes reported as "Positive" are automatically reflexed to mass spectrometry confirmation/quantitation testing. An immunoassay unconfirmed positive screen result may be useful for medical purposes but does not meet forensic standards. 3. The absence of expected drug(s) and/or drug metabolite(s) may indicate non-compliance, inappropriate timing of specimen collection relative to drug administration, poor drug absorption, or limitations of testing. The concentration at which the screening test can detect a drug or metabolite varies within a drug class. Specimens for which drugs or drug classes are detected by the screen are automatically reflexed to a second, more specific technology (mass spectrometry). The concentration value must be greater than or equal to the cutoff to be reported as positive. Interpretive questions should be directed to the laboratory. 4. For medical purposes only; not valid for forensic use. Test developed and characteristics determined by [facility]. See Compliance Statement B: [facility] Performed by [facility], [address], [place] [id number] [email or web address], Von Villar MD - Lab. Director Specimen Serum Performing Organization Address [facility]/Zipcode Phone Number [facility] [address] [place] [address] Hepatitis B core antibody total (08/11/2017 12:10 PM CDT) Hepatitis B core total Ab Non-reactive Non-reactive [facility] DEPARTMENT OF PATHOLOGY AND GENOMIC MEDICINE Specimen Blood Performing Organization Address City/[facility]/Zipcode Phone Number [facility] DEPARTMENT OF PATHOLOGY AND [address] [place] [address] [facility] C-peptide (08/11/2017 12:10 PM CDT) C-peptide 11.4 (H) 1.1 - 4.4 ng/mL [facility] DEPARTMENT OF PATHOLOGY AND GENOMIC MEDICINE Specimen Plasma specimen Performing Organization Address City/[facility]/Zipcode Phone Number [facility] DEPARTMENT OF PATHOLOGY AND [address] [place] [phone] [facility] Hepatitis B surface antibody (08/11/2017 12:10 PM CDT) Hepatitis B surface Ab Reactive (A) Non-reactive [facility] DEPARTMENT OF PATHOLOGY AND [facility] Specimen Blood Performing Organization Address [facility] Phone Number [facility] DEPARTMENT OF PATHOLOGY AND [address] [place], [place] [id number] Hepatitis B surface antigen (08/11/2017 12:10 PM CDT) Hepatitis B surface Ag Non-reactive Non-reactive [facility] DEPARTMENT OF PATHOLOGY AND [facility] Specimen Blood Performing Organization Address [facility]ode Phone Number [facility] DEPARTMENT OF PATHOLOGY AND [address] [place] [phone] [place] [address] Partial thromboplastin time, activated (08/11/2017 12:10 PM CDT) PTT 33.3 23.0 - 36.0 sec [facility] DEPARTMENT OF PATHOLOGY Comment: AND [facility] PTT therapeutic range for unfractionated heparin is 61.0-112.0 seconds which corresponds to Anti-Xa 0.3-0.7 U/ml. Specimen Blood Performing Organization Address [facility] Phone Number [facility] DEPARTMENT OF PATHOLOGY AND [address] [place] [address] Prothrombin time with INR (08/11/2017 12:10 PM CDT) Prothrombin time 14.1 12.0 - 15.0 sec [facility] DEPARTMENT OF PATHOLOGY AND GENOMIC MEDICINE INR 1.1 [facility] DEPARTMENT OF Comment: PATHOLOGY AND GENOMIC The International Normalized Ratio (INR) is a therapeutic MEDICINE monitoring tool for patients who are stable on oral anticoagulant therapy. An INR of 2.0-3.0 is suggested for deep vein thrombosis/pulmonary embolism. Specimen Blood Performing Organization Address [facility]ode Phone Number [facility] DEPARTMENT OF PATHOLOGY AND [address] [place] [address] Gram stain (08/11/2017 12:10 PM CDT) Gram stain result No WBC's [facility] DEPARTMENT OF PATHOLOGY Rare Gram positive cocci in [facility] AND [facility] MEDICINE Comment: Specimen Information Specimen Source: Urine Specimen Site: Clean catch Specimen Urine Performing Organization Address [facility]ode Phone Number [facility] DEPARTMENT OF PATHOLOGY AND [address] [place] [address] CBC with platelet and differential (08/11/2017 12:10 PM CDT) WBC 4.12 (L) 4.50 - 11.00 k/uL [facility] DEPARTMENT OF PATHOLOGY AND GENOMIC MEDICINE RBC 3.39 (L) 4.20 - 5.50 m/uL [facility] DEPARTMENT OF PATHOLOGY AND GENOMIC MEDICINE HGB 11.1 (L) 12.0 - 16.0 g/dL [facility] DEPARTMENT OF PATHOLOGY AND GENOMIC MEDICINE HCT 34.1 (L) 37.0 - 47.0 % [facility] DEPARTMENT OF PATHOLOGY AND GENOMIC MEDICINE MCV 100.6 (H) 82.0 - 100.0 fL [facility] DEPARTMENT OF PATHOLOGY AND GENOMIC MEDICINE MCH 32.7 27.0 - 34.0 pg [facility] DEPARTMENT OF PATHOLOGY AND GENOMIC MEDICINE MCHC 32.6 31.0 - 37.0 g/dL [facility] DEPARTMENT OF PATHOLOGY AND GENOMIC MEDICINE RDW - SD 55.1 (H) 37.0 - 55.0 fL [facility] DEPARTMENT OF PATHOLOGY AND GENOMIC MEDICINE MPV 12.3 8.8 - 13.2 fL [facility] DEPARTMENT OF PATHOLOGY AND GENOMIC MEDICINE Platelet count 111 (L) 150 - 400 k/uL [facility] DEPARTMENT OF PATHOLOGY AND GENOMIC MEDICINE Nucleated RBC 0.00 /100 WBC [facility] DEPARTMENT OF PATHOLOGY AND GENOMIC MEDICINE Neutrophils 60.6 39.0 - 69.0 % [facility] DEPARTMENT OF PATHOLOGY AND GENOMIC MEDICINE Lymphocytes 23.1 (L) 25.0 - 45.0 % [facility] DEPARTMENT OF PATHOLOGY AND GENOMIC MEDICINE Monocytes 11.9 (H) 0.0 - 10.0 % [facility] DEPARTMENT OF PATHOLOGY AND GENOMIC MEDICINE Eosinophils 2.7 0.0 - 5.0 % [facility] DEPARTMENT OF PATHOLOGY AND GENOMIC MEDICINE Basophils 1.2 (H) 0.0 - 1.0 % [facility] DEPARTMENT OF PATHOLOGY AND GENOMIC MEDICINE Immature granulocytes 0.5Comment: 0.0 - 1.0 % [facility] DEPARTMENT OF "Immature PATHOLOGY AND GENOMIC granulocytes" MEDICINE (promyelocytes, myelocytes, metamyelocytes) Specimen Blood Performing Organization Address City/State/Zipcode Phone Number [facility] DEPARTMENT OF PATHOLOGY AND [address] [place] [address] GENOMIC MEDICINE Urine culture (08/11/2017 12:10 PM CDT) Urine culture isolate Mixed Gram positive pietro [facility] DEPARTMENT OF 10-3 cfu/ml PATHOLOGY AND GENOMIC (A) MEDICINE Comment: Specimen Information Specimen Source: Urine Specimen Site: Clean catch Specimen Urine Performing Organization Address City/[facility] Centercome Phone Number [facility] DEPARTMENT OF PATHOLOGY AND [address] [place] [id number] [facility] Serum electrophoresis (08/11/2017 12:10 PM CDT) Protein 8.1 6.3 - 8.3 g/dL [facility] DEPARTMENT OF Comment: PATHOLOGY AND GENOMIC [place] 4.6-7.0 g/dL MEDICINE 1 week 4.4-7.6 g/dL 7 months-1year5.1-7.3 g/dL 1-2 years5.6-7.5 g/dL >3 years6.0-8.0 g/dL 18-150 6.3-8.3 g/dL SPE albumin 5.02 4.00 - 5.30 g/dL [facility] DEPARTMENT OF PATHOLOGY AND GENOMIC MEDICINE SPE alpha 1 0.21 0.10 - 0.25 g/dL [facility] DEPARTMENT OF PATHOLOGY AND GENOMIC MEDICINE SPE alpha 2 0.75 0.58 - 0.84 g/dL [facility] DEPARTMENT OF PATHOLOGY AND GENOMIC MEDICINE SPE beta 0.83 0.50 - 1.10 g/dL [facility] DEPARTMENT OF PATHOLOGY AND GENOMIC MEDICINE SPE gamma 1.30 0.60 - 1.30 g/dL [facility] DEPARTMENT OF PATHOLOGY AND GENOMIC MEDICINE SPE extended See CommentComment: An [facility] DEPARTMENT OF interpretation essentially normal PATHOLOGY AND GENOMIC serum protein study. MEDICINE SPE interpretation See Comment [facility] DEPARTMENT OF Comment: PATHOLOGY AND GENOMIC Lambert Fall MD; Angie Millan, PhD; Kate Shipman, PhD; [place] XIOMARA Vidal MD Specimen Serum Performing Organization Address City/[facility]ercode Phone Number [facility] DEPARTMENT OF PATHOLOGY AND [address] [place] [address] [facility] MEDICINE Comprehensive metabolic panel (08/11/2017 12:10 PM CDT) Sodium 139 135 - 148 mEq/L [facility] DEPARTMENT OF PATHOLOGY AND GENOMIC MEDICINE Potassium 4.1 3.5 - 5.0 mEq/L [facility] DEPARTMENT OF PATHOLOGY AND GENOMIC MEDICINE Chloride 97 (L) 98 - 112 mEq/L [facility] DEPARTMENT OF PATHOLOGY AND GENOMIC MEDICINE CO2 22 (L) 24 - 31 mEq/L [facility] DEPARTMENT OF PATHOLOGY AND GENOMIC MEDICINE Anion gap 20 (H) 7 - 15 mEq/L [facility] DEPARTMENT OF Comment: PATHOLOGY AND GENOMIC Starting from July , anion gap calculation MEDICINE no longer incorporates potassium. Please note the change. BUN 30 (H) 6 - 20 mg/dL [facility] DEPARTMENT OF PATHOLOGY AND GENOMIC MEDICINE Creatinine 4.7 (H) 0.5 - 0.9 mg/dL [facility] DEPARTMENT OF PATHOLOGY AND GENOMIC MEDICINE Glucose 198 (H) 65 - 99 mg/dL [facility] DEPARTMENT OF PATHOLOGY AND GENOMIC MEDICINE Calcium 9.2 8.3 - 10.2 mg/dL [facility] DEPARTMENT OF PATHOLOGY AND GENOMIC MEDICINE Protein 8.4 (H) 6.3 - 8.3 g/dL [facility] DEPARTMENT OF Comment: PATHOLOGY AND GENOMIC [place] 4.6-7.0 g/dL MEDICINE 1 week 4.4-7.6 g/dL 7 months-1year5.1-7.3 g/dL 1-2 years5.6-7.5 g/dL >3 years6.0-8.0 g/dL 18-150 6.3-8.3 g/dL Albumin 3.6 3.5 - 5.0 g/dL [facility] DEPARTMENT OF PATHOLOGY AND GENOMIC MEDICINE A/G ratio 0.8 0.7 - 3.8 [facility] DEPARTMENT OF PATHOLOGY AND GENOMIC MEDICINE Alkaline phosphatase 269 (H) 35 - 104 U/L [facility] DEPARTMENT OF PATHOLOGY AND GENOMIC MEDICINE AST 31 10 - 35 U/L [facility] DEPARTMENT OF PATHOLOGY AND GENOMIC MEDICINE ALT 35 5 - 50 U/L [facility] DEPARTMENT OF PATHOLOGY AND GENOMIC MEDICINE Total bilirubin 1.1 0.0 - 1.2 mg/dL [facility] DEPARTMENT OF PATHOLOGY AND GENOMIC MEDICINE Specimen Plasma specimen Performing Organization Address City/State/Zipcode Phone Number [facility] DEPARTMENT OF PATHOLOGY AND [address] [place] [address] GENOMIC [facility] after 03/04/2017 Insurance Payer Benefit Plan / Group Subscriber ID Type Phone Address MEDICARE MEDICARE PART A AND B xxxxxxxxxx Medicare [place], [place] Advance Directives Patient has advance care planning documents on file. For more information, please contact:Sandor [id number] [place] [address]
--- OUTSIDE RECORDS SUMMARY | 2018-03-05 19:24 | XMS REPORT | Clinical Summary ---
:1955 Author Organization [facility] Address [address] [place] [id number] Care Team Providers Name Role Phone Unavailable Primary Care Provider Unavailable Allergies Not on File Medications Not on file Active Problems Not on file Encounters Date Type Specialty Care Team Description 06/16/2017 Abstract Transplant Margo Valle 06/13/2017 Abstract Margo Reynoso 06/08/2017 Telephone Transplant Margo Valle Kidney Transplant Pre- evaluation 06/08/2017 Abstract Margo Reynoso 06/06/2017 Abstract Transplant Margo Valle after 03/04/2017 Social History Tobacco Use Types Packs/Day Years Used Date Never Assessed Sex Assigned at Date Recorded Not on file Job Start Date Occupation Industry Not on file Not on file Not on file Travel History Travel Start Travel End No recent travel history available. Last Filed Vital Signs Vital Sign Reading Time Taken Blood Pressure - - Pulse - - Temperature - - Respiratory Rate - - Oxygen Saturation - - Inhaled Oxygen Concentration - - Weight 77 kg (169 lb 12.1 oz) 06/06/2017 10:06 AM [employer] Height 160 cm (5' 3") 06/06/2017 10:06 AM [employer] Body Mass Index 30.07 06/06/2017 10:06 AM [employer] Plan of Treatment Not on file Results Not on fileafter 03/04/2017 Insurance Payer Benefit Plan / Group Subscriber ID Type Phone Address [employer] [facility]x [facility] MEDICAID MEDICAID [facility] xxxxxxxxx Medicaid
--- NOTE | 2018-03-05 20:04 | RAD REPORT ---
EXAM DESCRIPTION: CT - [id number] - 03/05/2018 7:52 pm CLINICAL HISTORY: Fall, head and neck injury COMPARISON: None. TECHNIQUE: Axial 5 mm thick images of the head were obtained. Axial 2 mm thick images of the cervic al spine were obtained with sagittal and coronal reconstruction images generated and reviewed. All CT scans are performed using dose optimization technique as appropriate and may include automated exposure control or mA/KV adjustment according to patient size. FINDINGS: No intracranial hemorrhage, mass, edema or acute intracranial finding. No suspicion for acute infarct ion. Mild atrophy and chronic ischemic changes are present. Ventricles are in proportion to volume lo ss. Mastoid air cells are clear. No acute paranasal sinus finding. No globe or orbit abnormality seen . Small right frontal scalp hematoma present. There is a 7 mm sized acute fracture fragment anterior inferior margin of the C6 body. The C5-6 disc space shows significant loss in disc height with prominent degenerative change to the endplates. No o ther vertebral body fractures seen. No pedicle or facet joint acute finding. Facet alignment is emilee l. Spinous processes are intact. No other disc space narrowing. Mild bony foraminal encroachment at C 5-6. No paraspinal mass or hematoma. Findings telephoned to the referring physician 7:59 p.m.. IMPRESSION: Mild atrophy and chronic ischemic change with no acute intracranial finding. C6 teardrop fracture without subluxation or significant displacement. Advanced disc and endplate degenerative change C5-6 with bony foraminal encroachment.
[2018-03-05 20:32] LABS: Absolute Lymphocytes (CBC) 0.9 K/uL (0.7-4.9); Absolute Monocytes 0.5 K/uL (0.1-1.3); Absolute Neutrophil 2.4 K/uL (1.8-8.0); Basophils % 1.8 % (0-1.3); Hematocrit 32.3 % (36.0-45.0); Lymphocytes % 22.2 % (15.3-44.8); MCH 34.3 pg (27.0-35.0); MCV 100.8 fL (80-100); MPV 10.5 fL (7.6-11.3); RBC Red Blood Cell Count 3.21 M/uL (3.86-4.86)
[2018-03-05] MEDS ORDERED: MORPHINE 2 MG/ML SYR ONE ×2 (20:34→21:39)
[2018-03-05] MEDS ORDERED: ONDANSETRON 4 MG/2 ML VIAL ONE (20:34)
[2018-03-05 20:35] LABS: Protime INR 1.14
[2018-03-05 21:09] LABS: Potassium 4.4 mmol/L (3.5-5.1)
--- NOTE | 2018-03-05 21:14 | RAD REPORT ---
EXAM DESCRIPTION: RAD - Hand Right 3 View - 03/05/2018 8:56 pm CLINICAL HISTORY: Fall, hand pain COMPARISON: None. FINDINGS: No fracture is identified. There is no dislocation or periosteal reaction noted. No forei gn body or other soft tissue abnormality. IMPRESSION: Negative right hand examination.
--- NOTE | 2018-03-05 21:15 | RAD REPORT ---
EXAM DESCRIPTION: RAD - Hand Left 3 View - 03/05/2018 8:56 pm CLINICAL HISTORY: Fall, hand pain COMPARISON: None. FINDINGS: No fracture, dislocation or periosteal reaction noted. No foreign body or other soft tissu e abnormality. Soft tissue fullness is present adjacent to the radius. Numerous surgical clips are pr esent at this site. IMPRESSION: No fracture or acute finding.
--- NOTE | 2018-03-05 21:16 | RAD REPORT ---
EXAM DESCRIPTION: RAD - Pelvis - 03/05/2018 8:56 pm CLINICAL HISTORY: Fall, pelvic pain COMPARISON: None. TECHNIQUE: AP imaging of the pelvis was obtained. FINDINGS: No fracture of the bony pelvis. No fracture, dislocation or other acute hip joint finding. No significant SI joint findings. Detail is limited by large body habitus. No soft tissue abnormality. IMPRESSION: Negative pelvis for acute or significant findings.
--- NOTE | 2018-03-05 21:17 | RAD REPORT ---
EXAM DESCRIPTION: RAD - Knee Right 3 View - 03/05/2018 8:56 pm CLINICAL HISTORY: Fall, knee pain COMPARISON: None. FINDINGS: No fracture, dislocation or periosteal reaction.No joint effusion seen. No joint space maddison rowing. No foreign body. Soft tissues are edematous with baseline unknown. Clinical concerns for internal derangement or occult bony injury could be further assessed with MR im aging. IMPRESSION: Negative right knee for acute bone or joint finding.
--- NOTE | 2018-03-05 21:17 | RAD REPORT ---
EXAM DESCRIPTION: RAD - Knee Left 3 View - 03/05/2018 8:56 pm CLINICAL HISTORY: Fall, knee pain COMPARISON: None. FINDINGS: No fracture, dislocation or periosteal reaction.No joint effusion seen. No joint space maddison rowing. Soft tissues are edematous with baseline unknown. No foreign body. IMPRESSION: Negative left knee for acute bone or joint finding. Clinical concerns for internal derangement or occult bony injury could be further assessed with MR im aging.
--- NOTE | 2018-03-05 22:08 | ER ---
Nurse's Notes [facility] Name: Qiana Valdez Age: 62 yrs Sex: Female : 1955 Arrival Date: 03/05/2018 Time: 19:27 Bed 27 Private MD: Diagnosis: Fracture of sixth cervical vertebra;Concussion Presentation: 03/05 19:29 Presenting complaint: Child states: unwitnessed fall from standing, is less alert than la1 normal per family. Transition of care: patient was not received from another setting of care. Onset of symptoms was March 05, 2018. Risk Assessment: Do you want to hurt yourself or someone else? Patient reports no desire to harm self or others. Initial Sepsis Screen: Does the patient meet any 2 criteria? No. Patient's initial sepsis screen is negative. Does the patient have a suspected source of infection? No. Patient's initial sepsis screen is negative. Care prior to arrival: None. 19:29 Method Of Arrival: Wheelchair la1 19:29 Acuity: SIXTO 2 la1 22:44 Mechanism of Injury: Fall. Trauma event details: [place] [address], Injury occurred: at home. Injury occurred: March 05, 2018. Triage Assessment: 22:43 General: Appears uncomfortable, Behavior is calm, cooperative. [facility] Trauma Activation: Alert Physician: ED Physician; Name: sid; Notified At: 19:25; Arrived At: 19:25 Physician: General Surgeon; Name: ; Notified At: 19:25; Arrived At: Physician: Radiology; Name: ; Notified At: 19:25; Arrived At: Physician: Respiratory; Name: ; Notified At: 19:25; Arrived At: Physician: Lab; Name: ; Notified At: 19:25; Arrived At: Historical: - Allergies: 19:30 No Known Allergies; la1 - PMHx: 19:30 Hypertension; Dialysis; Diabetes - IDDM; la1 - Immunization history:: Adult Immunizations up to date. - Social history:: Smoking status: Smoking status: Patient/guardian denies using tobacco. - Immunization history: Last tetanus immunization: unknown. - Ebola Screening: : No symptoms or risks identified at this time. - Family history:: not pertinent. - Hospitalizations: : No recent hospitalization is reported. Screenin:44 Abuse screen: Denies threats or abuse. Denies injuries from another. Nutritional mg2 screening: No deficits noted. Tuberculosis screening: No symptoms or risk factors identified. Fall Risk Fall in past 12 months (25 points). Gait- Weak (10 pts.). Mental Status- Overestimates/Forgets Limitations (15 pts.). Primary Survey: 19:46 A: Airway: patent. Breathing/Chest: Respiratory pattern: regular, no respiratory mg2 pattern noted, Respiratory effort: spontaneous, unlabored. Circulation: Skin color: pink. Disability Painful Stimuli. 22:43 Reassessment Breathing/Chest Respiratory pattern Regular Respiratory effort Spontaneous mg2 Unlabored Disability Alert. Secondary Survey: 22:50 HEENT: Head Other swelling noted Nose: clear to bilateral nares. Gastrointestinal: No mg2 deficits noted. : No deficits noted. Musculoskeletal: Circulation, motion, and sensation intact. Capillary refill < 3 seconds, Reports pain in right arm, right hand and right leg. Injury Description: C6 fracture. Assessment: 19:31 Reassessment: trauma alert called, ERP notified. la1 19:43 Reassessment: patient sent to ct scan. mg2 22:20 Reassessment: Report given to SUNITA Paniagua of [facility]. mg2 22:41 Pain: Complains of pain in head, right shoulder, right knee and right arm Pain does not mg2 radiate. Pain currently is 4 out of 10 on a pain scale. Quality of pain is described as aching, Pain began suddenly, today Is intermittent. Neuro: Level of Consciousness is awake, alert, obeys commands, Oriented to person, place, time, situation. Cardiovascular: Capillary refill < 3 seconds Patient's skin is warm and dry. Respiratory: Airway is patent Respiratory effort is even, unlabored, Respiratory pattern is regular, symmetrical. GI: No signs and/or symptoms were reported involving the gastrointestinal system. : No signs and/or symptoms were reported regarding the genitourinary system. EENT: No signs and/or symptoms were reported regarding the EENT system. Derm: Skin is intact, is healthy with good turgor, Skin is pink, warm \T\ dry. normal. Musculoskeletal: Circulation, motion, and sensation intact. Capillary refill < 3 seconds. 23:09 Reassessment: backboard applied to the patient by [facility]. patient tolerated mg2 the procedure well. Vital Signs: 19:35 BP 150 / 53; Resp 18; mg2 20:53 BP 152 / 66; Pulse 56; Resp 18; Temp 98.7(O); Pulse Ox 94% on R/A; Pain 5/10; mg2 22:00 BP 145 / 78; Pulse 85; Resp 18; Pulse Ox 96% on R/A; Pain 4/10; mg2 23:01 BP 145 / 70; Pulse 59; Resp 18; Pulse Ox 96% on R/A; Pain 2/10; mg2 Gautam Coma Score: 19:36 Eye Response: to voice(3). Verbal Response: confused(4). Motor Response: obeys rn commands(6). Total: 13. 20:52 Eye Response: spontaneous(4). Verbal Response: oriented(5). Motor Response: obeys mg2 commands(6). Total: 15. Trauma Score (Adult): 20:52 Eye Response: spontaneous(1); Verbal Response: oriented(1); Motor Response: obeys mg2 commands(2); Systolic BP: > 89 mm Hg(4); Respiratory Rate: 10 to 29 per min(4); Lockwood Score: 15; Trauma Score: 12 23:12 Eye Response: spontaneous(1); Verbal Response: oriented(1); Motor Response: obeys mg2 commands(2); Systolic BP: > 89 mm Hg(4); Respiratory Rate: 10 to 29 per min(4); Lockwood Score: 15; Trauma Score: 12 ED Course: 19:27 Patient arrived in ED. es 19:28 Adam Lau MD is Attending Physician. rn 19:30 Triage completed. la1 19:35 Chas eMndez, SUNITA is Primary Nurse. mg2 19:44 Patient has correct armband on for positive identification. Placed in gown. Bed in low mg2 position. Call light in reach. Side rails up X2. trim mounter on. Pulse ox on. Pulse ox on. Door closed. Warm blanket given. 19:45 No provider procedures requiring assistance completed. mg2 20:31 Inserted saline lock: 20 gauge in right forearm, using aseptic technique. Blood mg2 collected. Patient maintains SpO2 saturation greater than 95% on room air. 21:14 Notified ED physician of a critical lab result(s). Co2 41, Creatinine 6.0 Dr Sid beltran notified. 22:45 Arm band placed on. mg2 22:45 Thermoregulation: warm blanket given to patient. mg2 23:02 Patient transferred, IV remains in place. mg2 23:03 Patient transferred, IV remains in place. mg2 Administered Medications: 20:30 Drug: morphine 2 mg Route: IVP; Site: right forearm; mg2 21:29 Follow up: Response: No adverse reaction; Marked relief of symptoms mg2 20:30 Drug: Zofran 4 mg Route: IVP; Site: right forearm; mg2 21:29 Follow up: Response: No adverse reaction; Marked relief of symptoms mg2 21:33 Drug: morphine 2 mg Route: IVP; Site: right forearm; mg2 23:03 Follow up: Response: No adverse reaction; Marked relief of symptoms mg2 Point of Care Testing: Blood Glucose: 19:45 Blood Glucose: 151 mg/dL; mg2 Ranges: Intake: 19:53 PO: 0ml; Total: 0ml. mg2 Outcome: 22:08 ER care complete, transfer ordered by . rn 22:46 Patient's length of stay in the Emergency Department was greater than 2 hours. mg2 Patient's length of stay was extended due to receiving facility on divert. 23:02 Transferred by ground EMS to [facility], Transfer form completed. mg2 23:02 Condition: stable 23:02 Instructed on the need for transfer, Demonstrated understanding of instructions. 23:36 Patient left the ED. mg2 Signatures: Coleen Mccann Brenda, RN RN bb Nieto, Roman, MD MD rn Attema, Lee, RN RN laChas Randhawa RN RN mg2
--- NOTE | 2018-03-05 22:08 | EDPHYS ---
Physician Documentation [facility] Name: Qiana Valdez Age: 62 yrs Sex: Female : 1955 Arrival Date: 03/05/2018 Time: 19:27 Bed 27 Private MD: ED Physician Adam Lau HPI: 03/05 19:36 This Female presents to ER via Wheelchair with complaints of Fall Injury. rn 19:36 Details of fall: The patient fell from a height, off furniture, approximately 3 feet. rn Onset: The symptoms/episode began/occurred just prior to arrival. Associated injuries: The patient sustained injury to the head. Associated signs and symptoms: Pertinent positives: confusion, Pertinent negatives: abdominal pain, chest pain, incontinence, seizure, vomiting, weakness, Loss of consciousness: the patient experienced no loss of consciousness. Severity of symptoms: At their worst the symptoms were moderate, in the emergency department the symptoms are unchanged. The patient has not experienced similar symptoms in the past. family reports fall from bed, went to bed fine, fell onto hard surface, no LOC, is ESRD, not on any blood thinners, hit head, no vomiting, has been acting sluggish and confused since fall. Also hurt hands and knees. . Historical: - Allergies: 19:30 No Known Allergies; la1 - PMHx: 19:30 Hypertension; Dialysis; Diabetes - IDDM; la1 - Immunization history:: Adult Immunizations up to date. - Social history:: Smoking status: Smoking status: Patient/guardian denies using tobacco. - Immunization history: Last tetanus immunization: unknown. - Ebola Screening: : No symptoms or risks identified at this time. - Family history:: not pertinent. - Hospitalizations: : No recent hospitalization is reported. ROS: 19:36 Constitutional: Negative for fever, chills, weight loss. rn 19:36 Constitutional: Negative for fever, chills, weight loss, Eyes: Negative for injury, rn pain, redness, and discharge, ENT Negative for injury, pain, and discharge, Neck: Negative for injury, pain, and swelling, Cardiovascular: Negative for edema, Respiratory: Negative for shortness of breath, and cough, Abdomen/GI: Negative for abdominal pain, nausea, vomiting, diarrhea, and constipation, Back: Negative for injury and pain, MS/Extremity + bilateral hand and knee pain/bruising Neuro: + headache and confusion Exam: 19:36 Constitutional: This is a well developed, well nourished patient who is somnolent, rn arousable to voice and answers questions, slow to respond Head/Face: + contusion and ecchymosis mid forehead without depression, + moderate hematoma, no laceration Eyes: Pupils equal round and reactive to light, extra-ocular motions intact. ENT: No oral trauma Neck: No midline tenderness Chest/axilla: Normal chest wall appearance and motion. Nontender with no deformity. Cardiovascular: Regular rate, no murmur Respiratory: Equal bilateral breath sounds Back: No spinal tenderness. MS/ Extremity: Pulses equal, no cyanosis. Neurovascular intact. + tenderness to both hands and knees with ecchymosis, no gross deformity Neuro: Somnolent, oriented to person/place and situation, moves all 4 extremities and follows commands Vital Signs: 19:35 BP 150 / 53; Resp 18; mg2 20:53 BP 152 / 66; Pulse 56; Resp 18; Temp 98.7(O); Pulse Ox 94% on R/A; Pain 5/10; mg2 22:00 BP 145 / 78; Pulse 85; Resp 18; Pulse Ox 96% on R/A; Pain 4/10; mg2 23:01 BP 145 / 70; Pulse 59; Resp 18; Pulse Ox 96% on R/A; Pain 2/10; mg2 Gautam Coma Score: 19:36 Eye Response: to voice(3). Verbal Response: confused(4). Motor Response: obeys rn commands(6). Total: 13. 20:52 Eye Response: spontaneous(4). Verbal Response: oriented(5). Motor Response: obeys mg2 commands(6). Total: 15. Trauma Score (Adult): 20:52 Eye Response: spontaneous(1); Verbal Response: oriented(1); Motor Response: obeys mg2 commands(2); Systolic BP: > 89 mm Hg(4); Respiratory Rate: 10 to 29 per min(4); Mobile Score: 15; Trauma Score: 12 23:12 Eye Response: spontaneous(1); Verbal Response: oriented(1); Motor Response: obeys mg2 commands(2); Systolic BP: > 89 mm Hg(4); Respiratory Rate: 10 to 29 per min(4); Mobile Score: 15; Trauma Score: 12 MDM: 19:28 Patient medically screened. rn 21:41 ED course: COnsulted with Dr. Whyte regarding admission for head injury/concussion rn and observation period, requests transfer due to C6 fracture. . 22:06 Differential diagnosis: closed head injury, contusion, fracture. Data reviewed: vital rn signs, nurses notes, lab test result(s), radiologic studies, CT scan, plain films, and as a result, I will admit patient. Counseling: I had a detailed discussion with the patient and/or guardian regarding: the historical points, exam findings, and any diagnostic results supporting the discharge/admit diagnosis, lab results, radiology results, the need to transfer to another facility, [facility] does not immediately have the required specialist. 03/05 19:36 Order name: CBC with Diff rn 03/05 19:36 Order name: Basic Metabolic Panel rn 03/05 19:36 Order name: Protime (+inr) rn 03/05 19:36 Order name: Ptt, Activated rn 03/05 20:39 Order name: CBC with Automated Diff; Complete Time: 21:16 EDMS 03/05 20:41 Order name: Protime (+INR); Complete Time: 21:16 EDMS 03/05 19:34 Order name: CT Head C Spine rn 03/05 19:36 Order name: XRAY Hand LEFT 3 View rn 03/05 19:36 Order name: XRAY Hand RIGHT 3 View rn 03/05 19:36 Order name: XRAY Knee LEFT 3 view rn 03/05 19:36 Order name: XRAY Knee RIGHT 3 view rn 03/05 19:36 Order name: XRAY Pelvis rn 03/05 20:41 Order name: PTT, Activated Partial Thromb; Complete Time: 21:16 EDMS 03/05 21:15 Order name: Basic Metabolic Panel; Complete Time: 21:16 EDMS 03/05 19:36 Order name: IV Start; Complete Time: 20:25 rn 03/05 19:36 Order name: Glucose Level; Complete Time: 19:45 rn 03/05 20:04 Order name: C-Collar; Complete Time: 20:25 la1 03/05 21:14 Order name: RAD; Complete Time: 21:16 EDMS 03/05 21:16 Order name: RAD; Complete Time: 21:16 EDMS 03/05 21:16 Order name: RAD; Complete Time: 21:37 EDMS 03/05 21:17 Order name: RAD; Complete Time: 21:37 EDMS 03/05 21:18 Order name: RAD; Complete Time: 21:37 EDMS Administered Medications: 20:30 Drug: morphine 2 mg Route: IVP; Site: right forearm; mg2 21:29 Follow up: Response: No adverse reaction; Marked relief of symptoms mg2 20:30 Drug: Zofran 4 mg Route: IVP; Site: right forearm; mg2 21:29 Follow up: Response: No adverse reaction; Marked relief of symptoms mg2 21:33 Drug: morphine 2 mg Route: IVP; Site: right forearm; mg2 23:03 Follow up: Response: No adverse reaction; Marked relief of symptoms mg2 Point of Care Testing: Blood Glucose: 19:45 Blood Glucose: 151 mg/dL; mg2 Ranges: Critical Glucose Levels:Adult <50 mg/dl or >400 mg/dl <40 mg/dl or >180 mg/dl Disposition: 03/05/18 22:08 Transfer ordered to [facility]. Diagnosis are Fracture of sixth cervical vertebra, Concussion. - Reason for transfer: Higher level of care. - Accepting physician is Lenora. - Condition is Stable. - Problem is new. - Symptoms have improved. Signatures: Dispatcher [employer] EDMS Adam Lau MD MD rn Attema, Lee, RN RN la1 Chas Mendez RN RN mg2 Corrections: (The following items were deleted from the chart) 19:47 19:36 family reports fall from bed, went to bed fine, fell onto hard surface, no LOC, rn is ESRD, not on any blood thinners, hit head, no vomiting, has been acting sluggish and confused since fall. Also hurt hands and knees. . rn 23:36 22:08 03/05/2018 22:08 Transfer ordered to [facility]. mg2 Diagnosis is Fracture of sixth cervical vertebra; Concussion. Reason for transfer: Higher level of care. Accepting physician is Lenora. Condition is Stable. Problem is new. Symptoms have improved. rn
== END 2018-03-05 23:36 | disposition short-term general hospital (02) ==
LOC: ER 19:21
DX: S12.500A Unspecified displaced fracture of sixth cervical vertebra, initial encounter for closed fracture (principal); W06.XXXA Fall from bed, initial encounter; Y93.9 Activity, unspecified; Y92.9 Unspecified place or not applicable; Z99.2 Dependence on renal dialysis; I12.0 Hypertensive chronic kidney disease with stage 5 chronic kidney disease or end stage renal disease; N18.6 End stage renal disease
CPT/HCPCS: 36415; 70450; 72125; 72170; 73130 ×2; 73562 ×2; 80048; 82962; 85025; 85610; 85730; 96374; 96375; 99285; J2270 ×2; J2405

== ENCOUNTER 2018-05-10 12:17 | Emergency (ER) | payer OTHER ==
--- OUTSIDE RECORDS SUMMARY | 2018-05-10 12:21 | XMS REPORT | Clinical Summary ---
:1955 Author Organization [facility] Address [address] [place] [address] Care Team Providers Name Role Phone Asked, [...] Encounters Date Type Specialty Care Team Description 03/22/2018 Documentation Transplant Jacqueline Hernandez, RN MRB note 12/09/2017 Documentation Transplant Michela Cordova Cardio clearance/echo/stress test (Cardio clearance 11/24/17, echo/stress test scanned in media. ) 12/07/2017 Documentation Transplant Desiree Angela 11/24/2017 Documentation Transplant Michela Cordova Cardio consult (Cardio consult 11/17/17 scanned in media.); Urology clearance (Urology clearance 11/15/17 scanned in media.) 11/15/2017 Hospital Encounter Radiology Starr Shipman, ESRD (end stage renal MD disease) 11/15/2017 Hospital Encounter Radiology Starr Shipman, ESRD (end stage renal MD disease) 11/15/2017 Hospital Encounter Transplant Louise Wiggins MD 11/15/2017 Hospital Encounter Transplant Starr [...] renal MD disease) 09/08/2017 Hospital Encounter Radiology Louise Wiggins, ESRD (end stage renal MD disease) 09/08/2017 Hospital Encounter Transplant Louise Wiggins, ESRD (end stage renal MD disease) 09/08/2017 Orders Only Transplant Javid Gandara RN ESRD (end stage renal disease) (Primary Dx) 09/06/2017 Hospital Encounter Transplant Ana Luisa Mcdowell 09/06/2017 Hospital Encounter Transplant Michoacano Wallace No MD Coreen Bell Denise 08/15/2017 Documentation Transplant Amparo Magana Consent [...] - Kidney Txp SUNITA Welch (Re-referral) after 05/09/2017 Social History Tobacco Use Types Packs/Day Years [...] Done Comments DIABETIC RETINAL EYE EXAM 1955 DIABETIC FOOT EXAM 09/05/1967 SHINGLES VACCINES (1 of 2) 09/05/2007 INFLUENZA VACCINE 11/02/2017 BREAST CANCER SCREENING 11/16/2019 11/15/2017, 04/10/2015 CERVICAL CANCER SCREENING 08/11/2020 08/11/2017 COLON CANCER SCREENING 11/15/2027 11/14/2017, 11/13/2017, 11/12/2017, Additional history exists Procedures Procedure Name Priority Date/Time Associated Comments [...] procedure are in the results section. after 05/09/2017 Results CTA Abdomen Pelvis W And Or Wo Contrast (11/15/2017 2:41 PM CDT) Narrative Performed At EXAMINATION:CT ANGIOGRAM ABDOMEN PELVIS W AND OR WO CONTRAST [facility] CLINICAL HISTORY:N18.6 End stage renal [...] spleen. Fatty infiltration of the pancreas. 4.The [place] kidneys are atrophic. Hypoattenuating lesion in the [...] or flow-limiting stenosis. 2.Other findings as above. [id number] Procedure Note Interface, Radiology Results Incoming - 11/15/2017 3:03 [...] Fatty infiltration of the pancreas. 4. The [place] kidneys are atrophic. Hypoattenuating lesion in the [...] flow-limiting stenosis. 2. Other findings as above. [id number] Performing Organization Address City/State/Zipcode Phone Number [facility] [address] [place] [address] Mammo Diagnostic w Cad Bilateral (11/15/2017 1:36 PM CDT) Narrative Performed At EXAMINATION:MAMMO DIAGNOSTIC W CAD BILATERAL [facility] INDICATION: COMPARISON:None. FINDINGS: The breasts are heterogeneously dense which, may obscure small masses.There is no suspicious mass, distortion, asymmetry, or suspicious microcalcifications.Bilateral vascular calcification. Small microclip noted anterior left breast. No other changes from prior exam. IMPRESSION:2016 mammogram RECOMMENDATION: Recommend annual follow-up if there is no interval change in the physical examination. BI-RADS 2: BENIGN. [id number] Performing Organization Address City/State/Zipcode Phone Number [facility] [address] [place] [phone] Low resolution full typing by SSO (11/15/2017 7:18 AM CDT) [facility] DEPARTMENT OF PATHOLOGY AND GENOMIC MEDICINE Low resolution full typing See link below for PDF [facility] DEPARTMENT OF by SSO Lab Report PATHOLOGY AND GENOMIC MEDICINE Performing Organization Address [facility] Phone Number [facility] DEPARTMENT OF PATHOLOGY AND [address] [place] [address] [facility] C1Q class 1 & 2 antibody (11/15/2017 7:18 AM CDT) [facility] DEPARTMENT OF PATHOLOGY AND GENOMIC MEDICINE C1Q class 1 & 2 antibody See link below for PDF [facility] DEPARTMENT OF PATHOLOGY Lab Report AND GENOMIC MEDICINE Performing Organization Address [facility] Phone Number [facility] DEPARTMENT OF PATHOLOGY AND [address] [place] [address] HSV 1 & 2 glycoprotein G Ab, IgG (11/15/2017 7:18 AM CDT) HSV 1 glycoprotein G Ab, Positive (A) Negative [facility] DEPARTMENT OF IgG Comment: PATHOLOGY AND GENOMIC Positive results may indicate current or past HSV infection. MEDICINE For acute illness, viral PCR and IgM testing are recommended. Individuals infected with HSV may not exhibit detectable antibodies in cases of early infection. HSV 2 glycoprotein G Ab, Positive (A) Negative [facility] DEPARTMENT OF IgG Comment: PATHOLOGY AND GENOMIC Positive results may indicate current or past HSV infection. MEDICINE For acute illness, viral PCR and IgM testing are recommended. Individuals infected with HSV may not exhibit detectable antibodies in cases of early infection. Specimen Serum Performing Organization Address City/[facility] Phone Number [facility] DEPARTMENT OF PATHOLOGY AND [address] [place] [id number] [facility] Enzo-Monroy virus antibody test (11/15/2017 7:18 AM CDT) EBV Ab to viral capsid Ag, Positive (A) Negative [facility] DEPARTMENT OF IgG PATHOLOGY AND GENOMIC MEDICINE EBV Ab to viral capsid Ag, Negative Negative [facility] DEPARTMENT OF IgM PATHOLOGY AND GENOMIC MEDICINE EBV Ab to nuclear Ag, IgG Positive (A) Negative [facility] DEPARTMENT OF PATHOLOGY AND GENOMIC MEDICINE EBV Ab to early (D) Ag, IgG Negative Negative [facility] DEPARTMENT OF PATHOLOGY AND GENOMIC MEDICINE Enzo-Monroy virus antibody SEE COMMENTComment: [facility] DEPARTMENT OF interpretation Infection Status: PATHOLOGY AND GENOMIC Results may suggest MEDICINE past EBV infection. Specimen Serum Performing Organization Address City/State/Zipcode Phone Number [facility] DEPARTMENT OF PATHOLOGY AND [address] [place] [phone] [place] [address] Single antigen beads (11/15/2017 7:18 AM CDT) [facility] DEPARTMENT OF PATHOLOGY AND GENOMIC MEDICINE Single antigen beads See link below for PDF [facility] DEPARTMENT OF PATHOLOGY Lab Report AND GENOMIC MEDICINE Performing Organization Address City/[facility] Phone Number [facility] DEPARTMENT OF PATHOLOGY AND [address] [place] [address] HSV type 1/2 combined Ab, IgM (11/15/2017 7:18 AM CDT) HSV 1/2 combined Ab, IgM 0.70 <=0.89 [facility] Comment: INTERPRETIVE INFORMATION: Herpes Simplex Virus [...] than 12 months post- infection. Performed by [facility], [address] [place], [place] [id number] [email or web address], Von Villar MD - Lab. Director Specimen Serum Performing Organization Address City/[facility]/Zipcode Phone Number [facility] [address] [place] [address] HLA autologous crossmatch, AH (11/15/2017 7:18 AM CDT) [facility] DEPARTMENT OF PATHOLOGY AND GENOMIC MEDICINE HLA autologous crossmatch See link below for PDF [facility] DEPARTMENT OF Lab Report PATHOLOGY AND GENOMIC MEDICINE Performing Organization Address City/State/Zipcode Phone Number [facility] DEPARTMENT OF PATHOLOGY AND [address] [place] [address] Herpes simplex virus by PCR (11/15/2017 7:18 AM CDT) Herpes virus, PCR Not-Detected Not-Detected [facility] DEPARTMENT OF PATHOLOGY AND [facility] MEDICINE Herpes virus, PCR See link below for PDF [facility] DEPARTMENT OF PATHOLOGY Lab ReportComment: Case AND GENOMIC MEDICINE Number: [id number] Performing Organization Address City/State/Zipcode Phone Number [facility] DEPARTMENT OF PATHOLOGY AND [address] [place] [address] Estimated GFR (11/15/2017 7:18 AM CDT)Only the most recent of2 resultswithin the time period is included. GFR Non Af Amer 11 (A) mL/min/1.73 m2 [facility] DEPARTMENT OF PATHOLOGY AND GENOMIC MEDICINE GFR Af Amer 13 (A) mL/min/1.73 m2 [facility] DEPARTMENT OF Comment: PATHOLOGY AND [...] Americans. Specimen Plasma specimen Performing Organization Address City/[facility] Phone Number [facility] DEPARTMENT OF PATHOLOGY AND [address] [place] [address] Cytomegalovirus Ab, IgM (11/15/2017 7:18 AM CDT) Cytomegalovirus Ab, IgM NegativeComment: Negative: Negative [facility] DEPARTMENT OF CMV IgM antibodies were PATHOLOGY AND GENOMIC not detected. MEDICINE Specimen Serum Performing Organization Address City/State/Zipcode Phone Number [facility] DEPARTMENT OF PATHOLOGY AND [address] [place] [address] ABORh - transplant (11/15/2017 7:18 AM CDT)Only the most recent of2 resultswithin the time period is included. ABO grouping O [facility] DEPARTMENT OF PATHOLOGY AND GENOMIC MEDICINE Rh type POS [facility] DEPARTMENT OF PATHOLOGY AND GENOMIC MEDICINE Specimen Blood Performing Organization Address [facility]ode Phone Number [facility] DEPARTMENT OF PATHOLOGY AND [address] [place] [address] Cytomegalovirus Ab, IgG (11/15/2017 7:18 AM CDT) Cytomegalovirus Ab, IgG Positive (A) Negative [facility] DEPARTMENT OF Comment: PATHOLOGY AND GENOMIC Positive; IgG antibody to CMV detected which may indicate MEDICINE exposure to CMV infection. Specimen Serum Performing Organization Address City/[facility] Cent[facility] Phone Number [facility] DEPARTMENT OF PATHOLOGY AND [address] [place] [address] Triglycerides (11/15/2017 7:18 AM CDT) Triglycerides 103 <150 mg/dL [facility] DEPARTMENT OF PATHOLOGY AND GENOMIC MEDICINE Specimen Plasma specimen Performing Organization Address City/[facility] Cent[facility]ode Phone Number [facility] DEPARTMENT OF PATHOLOGY AND [address] [place] [address] Phosphorus level (11/15/2017 7:18 AM CDT) Phosphorus 4.3 2.4 - 4.5 mg/dL [facility] DEPARTMENT OF PATHOLOGY AND GENOMIC MEDICINE Specimen Plasma specimen Performing Organization Address [facility] Phone Number [facility] DEPARTMENT OF PATHOLOGY AND [address] [place] [address] Parathyroid hormone (11/15/2017 7:18 AM CDT) PTH 278 (H) 15 - 65 pg/mL [facility] DEPARTMENT OF PATHOLOGY AND GENOMIC MEDICINE Specimen Blood Performing Organization Address [facility] Centercode Phone Number [facility] DEPARTMENT OF PATHOLOGY AND [address] [place] [address] LDH (11/15/2017 7:18 AM CDT) LDH 304 (H) 87 - 225 U/L [facility] DEPARTMENT OF PATHOLOGY AND GENOMIC MEDICINE Specimen Plasma specimen Performing Organization Address [facility] Cent[facility] Phone Number [facility] DEPARTMENT OF PATHOLOGY AND [address] [place] [address] Hemoglobin A1c (11/15/2017 7:18 AM CDT) Hemoglobin A1C 8.6 (H) 4.0 - 5.6 % [facility] DEPARTMENT OF PATHOLOGY Comment: AND GENOMIC MEDICINE HbA1c cutoffs for diagnosing diabetes: 4.0% - 5.6%=normal 5.7% - 6.4%=increased risk for diabetes (prediabetes) >=6.5%=diabetes Goals for glycemic control (ADA 2016) < 7.0%Target for non adults with diabetes. More or less stringent targets may be appropriate for individual patients. <7.5% Target for Children and adolescents with type 1 diabetes. Specimen Blood Performing Organization Address [facility] Centercode Phone Number [facility] DEPARTMENT OF PATHOLOGY AND [address] [place] [address] [facility] Fasting glucose level (11/15/2017 7:18 AM CDT) Glucose, fasting 176 (H) 65 - 99 mg/dL [facility] DEPARTMENT OF PATHOLOGY AND GENOMIC MEDICINE Specimen Blood Performing Organization Address [facility] Phone Number [facility] DEPARTMENT OF PATHOLOGY AND [address] [place] [address] [facility] Creatinine level (11/15/2017 7:18 AM CDT) Creatinine 4.1 (H) 0.5 - 0.9 mg/dL [facility] DEPARTMENT OF PATHOLOGY AND GENOMIC MEDICINE Specimen Plasma specimen Performing Organization Address [facility] Phone Number [facility] DEPARTMENT OF PATHOLOGY AND [address] [place] [address] GENOMIC MEDICINE Cholesterol (11/15/2017 7:18 AM CDT) Cholesterol 184 <200 mg/dL [facility] DEPARTMENT OF PATHOLOGY AND GENOMIC MEDICINE Specimen Plasma specimen Performing Organization Address [facility] Phone Number [facility] DEPARTMENT OF PATHOLOGY AND [address] [place] [address] MEDICINE Occult blood, stool (11/14/2017 8:00 AM CDT)Only the most recent of3 resultswithin the time period is included. Occult blood, stool Negative for occult blood. [facility] DEPARTMENT OF PATHOLOGY Comment: AND GENOMIC MEDICINE Specimen Information Specimen Source: Stool Specimen Site: Nonpreserved Specimen Stool - Nonpreserved Performing Organization Address [facility] Cent[facility]ode Phone Number [facility] DEPARTMENT OF PATHOLOGY AND [address] [place] [address] GENOMIC MEDICINE XR Chest 2 Vw (09/08/2017 12:16 PM CDT) Narrative Performed At EXAMINATION:XR CHEST 2 VW HM [facility] CLINICAL HISTORY:N18.6 End stage renal disease, Renal Transplant Evaluation COMPARISON:To a previous examination from 12/26/2014 IMPRESSION: Changes related midline sternotomy are present. The heart is prominent, and the lungs are clear. [id number] Procedure Note Interface, Radiology Results Incoming - 09/08/2017 12:22 PM CDT EXAMINATION: XR CHEST 2 VW CLINICAL HISTORY: N18.6 End stage renal disease, Renal Transplant Evaluation COMPARISON: To a previous examination from 12/26/2014 IMPRESSION: Changes related midline sternotomy are present. The heart is prominent, and the lungs are clear. [id number] Performing Organization Address [facility] Phone Number [facility] [address] [place] [address] [place] Renal (09/08/2017 12:00 PM CDT) Narrative [...] renal cyst is seen. 3.Bladder was empty. [id number] Procedure Note Interface, Radiology Results Incoming - [...] cyst is seen. 3. Bladder was empty. [id number] Performing Organization Address [facility] Phone Number [facility] [address] [place] [address] EKG 12-LEAD (09/08/2017 11:14 AM CDT) Ventricular rate 61 [facility] MUSE Atrial rate 61 [facility] MUSE MI interval 134 [facility] MUSE QRSD interval 100 HM MUSE QT interval 494 [facility] MUSE QTC interval 497 [facility] MUSE P axis 1 46 [facility] MUSE QRS axis 1 11 [facility] MUSE T wave axis 164 [facility] MUSE EKG impression Normal sinus rhythm-Possible Left atrial enlargement-Left ventricular hypertrophy-ST & T wave abnormality, consider lateral ischemia- Prolonged QT-Abnormal ECG-In automated comparison with ECG of -DEC-2014 14:35, -No significant change was [facility] MUSE found- : 04 PM Performing Organization Address City/State/[facility]ercode Phone Number [facility] MUSE [address] [place] [address] Syphilis treponemal IgG (08/11/2017 12:10 PM CDT) Syphilis treponemal IgG Non-reactiveComment: Non-reactive [facility] DEPARTMENT OF Non-reactive: No PATHOLOGY AND GENOMIC serological evidence of MEDICINE Syphilis infection Specimen Serum Performing Organization Address City/State/[facility]ercode Phone Number [facility] DEPARTMENT OF PATHOLOGY AND [address] [place] [id number] [facility] Urinalysis screen and microscopy, with reflex to culture (08/11/2017 12:10 PM CDT) Specimen site Clean catch [facility] DEPARTMENT OF PATHOLOGY AND GENOMIC MEDICINE Color, UA Yellow [facility] DEPARTMENT OF PATHOLOGY AND GENOMIC MEDICINE Appearance, UA Cloudy [facility] DEPARTMENT OF PATHOLOGY AND GENOMIC MEDICINE Specific gravity, UA 1.008 1.001 - 1.035 [facility] DEPARTMENT OF PATHOLOGY AND GENOMIC MEDICINE pH, UA 9.0 5.0 - 8.5 [facility] DEPARTMENT OF PATHOLOGY AND GENOMIC MEDICINE Protein, UA 3+ (A) Negative [facility] DEPARTMENT OF PATHOLOGY AND GENOMIC MEDICINE Glucose, UA 3+ (A) Negative [facility] DEPARTMENT OF PATHOLOGY AND GENOMIC MEDICINE Ketones, UA Negative Negative [facility] DEPARTMENT OF PATHOLOGY AND GENOMIC MEDICINE Bilirubin, UA Negative Negative [facility] DEPARTMENT OF PATHOLOGY AND GENOMIC MEDICINE Blood, UA Negative Negative [facility] DEPARTMENT OF PATHOLOGY AND GENOMIC MEDICINE Nitrite, UA Negative Negative [facility] DEPARTMENT OF PATHOLOGY AND GENOMIC MEDICINE Urobilinogen, UA <2.0 <2.0 [facility] DEPARTMENT OF PATHOLOGY AND GENOMIC MEDICINE Leukocyte esterase, UA Negative Negative [facility] DEPARTMENT OF PATHOLOGY AND GENOMIC MEDICINE Epithelial cells, UA >20 /HPF [facility] DEPARTMENT OF PATHOLOGY AND GENOMIC MEDICINE WBC, UA 18 (H) 0 - 4 /HPF [facility] DEPARTMENT OF PATHOLOGY AND GENOMIC MEDICINE RBC, UA 5 0 - 5 /HPF [facility] DEPARTMENT OF PATHOLOGY AND GENOMIC MEDICINE Bacteria, UA Moderate (A) None seen [facility] DEPARTMENT OF PATHOLOGY AND GENOMIC MEDICINE Yeast, UA None seen [facility] DEPARTMENT OF PATHOLOGY AND GENOMIC MEDICINE Yeast with pseudohyphae, UA None seen [facility] DEPARTMENT OF PATHOLOGY AND GENOMIC MEDICINE Amorphous crystals Few [facility] DEPARTMENT OF PATHOLOGY AND GENOMIC MEDICINE Specimen Urine Performing Organization Address City/State/Zipcode Phone Number [facility] DEPARTMENT OF PATHOLOGY AND [address] [place] [phone] [place] [address] MEDICINE HIV Ag/Ab combination (08/11/2017 12:10 PM CDT) HIV Ag/Ab combination Non-reactive Non-reactive [facility] DEPARTMENT OF PATHOLOGY AND GENOMIC MEDICINE Specimen Blood Performing Organization Address City/[facility] Centercode Phone Number [facility] DEPARTMENT OF PATHOLOGY AND [address] [place] [phone] [place] [address] TB T-SPOT (08/11/2017 12:10 PM CDT) TB T-SPOT SEE NOTE [facility] DEPARTMENT OF PATHOLOGY Comment: AND [...] FOR USE WITH T=SPOT.TB TEST. Performed by: [facility] Molecular Tuberculosis Laboratory [facility] ([id number]) [place], [place] [address] Specimen Blood Performing Organization Address City/State/Zipcode Phone Number [facility] DEPARTMENT OF PATHOLOGY AND [address] [place] [address] [employer] Nicotine and metabolites, serum (08/11/2017 12:10 PM CDT) Nicotine <2.0 0.0 - 2.0 ng/mL [facility] DEPARTMENT OF PATHOLOGY AND GENOMIC MEDICINE Cotinine <2.0 0.0 - 2.0 ng/mL [facility] DEPARTMENT OF PATHOLOGY AND GENOMIC MEDICINE 5-NQ-pyndfenc <5.0 0.0 - 5.0 ng/mL [facility] DEPARTMENT OF Comment: PATHOLOGY AND GENOMIC This test was developed and its performance characteristics determined by MEDICINE the Department of Pathology and Genomic Medicine, [facility] [place]. Serum nicotine and its metabolites cotinine and 0-IB-lbosxvve are tested by HPLC tandem mass spectrometry. It has not been cleared or approved by FDA. The laboratory is regulated under CLIA as qualified to perform high-complexity testing. This test is used for clinical purposes. It should not be regarded as investigational or for research. Specimen Blood Performing Organization Address City/State/Zipcode Phone Number [facility] DEPARTMENT OF PATHOLOGY AND [address] [place] [address] [facility] Hepatitis B surface Ab, quantitative (08/11/2017 12:10 PM CDT) Hepatitis B surface Ab 498.89 IU/L [facility] Comment: The anti-HBs is greater than [...] Cellular and Tissue-Based Products (HCT/P). Performed by [facility], [address] [place] [address] [email or web address], Von Villar MD - Lab. Director Specimen Serum Performing Organization Address City/[facility]/Zipcode Phone Number [facility] [address] [place] [address] Hepatitis C antibody (08/11/2017 12:10 PM CDT) Hepatitis C Ab Non-reactive Non-reactive [facility] DEPARTMENT OF PATHOLOGY AND GENOMIC MEDICINE Specimen Blood Performing Organization Address City/[facility] Phone Number [facility] DEPARTMENT OF PATHOLOGY AND [address] [place] [address] Hepatitis A antibody IgM (08/11/2017 12:10 PM CDT) Hepatitis A IgM Non-reactive Non-reactive [facility] DEPARTMENT OF PATHOLOGY AND GENOMIC MEDICINE Performing Organization Address City/[facility] Phone Number [facility] DEPARTMENT OF PATHOLOGY AND [address] [place] [address] Hepatitis A antibody total (08/11/2017 12:10 PM CDT) Hepatitis A total Ab Reactive (A) Non-reactive [facility] DEPARTMENT OF Comment: PATHOLOGY AND GENOMIC Hepatitis A Total Antibody reactive. Hepatitis A IgM antibody MEDICINE will be performed and reported separately when completed. Specimen Blood Performing Organization Address [facility] [place] Phone Number [facility] DEPARTMENT OF PATHOLOGY AND [address] [place] [address] Drug mesa 9, ser/trudi, scrn w/rflx to [...] LABORATORY screen Drug screen comments, See Note [facility] serum Comment: INTERPRETIVE INFORMATION: Drug Screen [...] use. Test developed and characteristics determined by [facility]. See Compliance Statement B: [employer] Performed by [facility], [address], [place] [id number] [email or web address], Von Villar MD - Lab. Director Specimen Serum Performing Organization Address [facility] Phone Number Managed by [facility] [address] [place] [address] Hepatitis B core antibody total (08/11/2017 12:10 PM CDT) Hepatitis B core total Ab Non-reactive Non-reactive [facility] DEPARTMENT OF PATHOLOGY AND GENOMIC MEDICINE Specimen Blood Performing Organization Address [facility] Phone Number [facility] DEPARTMENT OF PATHOLOGY AND [address] [place] [address] C-peptide (08/11/2017 12:10 PM CDT) C-peptide 11.4 (H) 1.1 - 4.4 ng/mL [facility] DEPARTMENT OF PATHOLOGY AND GENOMIC MEDICINE Specimen Plasma specimen Performing Organization Address City/[facility] Phone Number [facility] DEPARTMENT OF PATHOLOGY AND [address] [place] [address] Hepatitis B surface antibody (08/11/2017 12:10 PM CDT) Hepatitis B surface Ab Reactive (A) Non-reactive [facility] DEPARTMENT OF PATHOLOGY AND GENOMIC MEDICINE Specimen Blood Performing Organization Address [facility] Phone Number [facility] DEPARTMENT OF PATHOLOGY AND [address] [place] [address] Hepatitis B surface antigen (08/11/2017 12:10 PM CDT) Hepatitis B surface Ag Non-reactive Non-reactive [facility] DEPARTMENT OF PATHOLOGY AND GENOMIC [facility] Specimen Blood Performing Organization Address [facility] Phone Number [facility] DEPARTMENT OF PATHOLOGY AND [address] [place] [address] Partial thromboplastin time, activated (08/11/2017 12:10 PM CDT) PTT 33.3 23.0 - 36.0 sec [facility] DEPARTMENT OF PATHOLOGY Comment: AND [facility] PTT therapeutic range for unfractionated heparin is 61.0-112.0 seconds which corresponds to Anti-Xa 0.3-0.7 U/ml. Specimen Blood Performing Organization Address [facility] Phone Number [facility] DEPARTMENT OF PATHOLOGY AND [address] [place] [address] Prothrombin time with INR (08/11/2017 12:10 PM CDT) Prothrombin time 14.1 12.0 - 15.0 sec [facility] DEPARTMENT OF PATHOLOGY AND GENOMIC MEDICINE INR 1.1 [facility] DEPARTMENT OF Comment: PATHOLOGY AND GENOMIC The International Normalized Ratio (INR) is a therapeutic MEDICINE monitoring tool for patients who are stable on oral anticoagulant therapy. An INR of 2.0-3.0 is suggested for deep vein thrombosis/pulmonary embolism. Specimen Blood Performing Organization Address [facility] [place] Phone Number [facility] DEPARTMENT OF PATHOLOGY AND [address] [place] [address] Gram stain (08/11/2017 12:10 PM CDT) Gram stain result No WBC's [facility] DEPARTMENT OF PATHOLOGY Rare Gram positive cocci in pairs AND GENOMIC MEDICINE Comment: Specimen Information Specimen Source: Urine Specimen Site: Clean catch Specimen Urine Performing Organization Address [facility] Phone Number [facility] DEPARTMENT OF PATHOLOGY AND [address] [place] [address] CBC with platelet and differential (08/11/2017 12:10 PM CDT) WBC 4.12 (L) 4.50 - 11.00 k/uL [facility] DEPARTMENT OF PATHOLOGY AND GENOMIC MEDICINE RBC 3.39 (L) 4.20 - 5.50 m/uL [facility] DEPARTMENT OF PATHOLOGY AND GENOMIC MEDICINE HGB 11.1 (L) 12.0 - 16.0 g/dL [facility] DEPARTMENT OF PATHOLOGY AND GENOMIC MEDICINE HCT 34.1 (L) 37.0 - 47.0 % [facility] DEPARTMENT OF PATHOLOGY AND GENOMIC MEDICINE MCV 100.6 (H) 82.0 - 100.0 fL [facility] DEPARTMENT OF PATHOLOGY AND GENOMIC MEDICINE MCH 32.7 27.0 - 34.0 pg [facility] DEPARTMENT OF PATHOLOGY AND GENOMIC MEDICINE MCHC 32.6 31.0 - 37.0 g/dL [facility] DEPARTMENT OF PATHOLOGY AND GENOMIC MEDICINE RDW - SD 55.1 (H) 37.0 - 55.0 fL [facility] DEPARTMENT OF PATHOLOGY AND GENOMIC MEDICINE MPV 12.3 8.8 - 13.2 fL [facility] DEPARTMENT OF PATHOLOGY AND GENOMIC MEDICINE Platelet count 111 (L) 150 - 400 k/uL [facility] DEPARTMENT OF PATHOLOGY AND GENOMIC MEDICINE Nucleated RBC 0.00 /100 WBC [facility] DEPARTMENT OF PATHOLOGY AND GENOMIC MEDICINE Neutrophils 60.6 39.0 - 69.0 % [facility] DEPARTMENT OF PATHOLOGY AND GENOMIC MEDICINE Lymphocytes 23.1 (L) 25.0 - 45.0 % [facility] DEPARTMENT OF PATHOLOGY AND GENOMIC MEDICINE Monocytes 11.9 (H) 0.0 - 10.0 % [facility] DEPARTMENT OF PATHOLOGY AND GENOMIC MEDICINE Eosinophils 2.7 0.0 - 5.0 % [facility] DEPARTMENT OF PATHOLOGY AND GENOMIC MEDICINE Basophils 1.2 (H) 0.0 - 1.0 % [facility] DEPARTMENT OF PATHOLOGY AND GENOMIC MEDICINE Immature granulocytes 0.5Comment: 0.0 - 1.0 % [facility] DEPARTMENT OF "Immature PATHOLOGY AND GENOMIC granulocytes" MEDICINE (promyelocytes, myelocytes, metamyelocytes) Specimen Blood Performing Organization Address City/[facility] Phone Number [facility] DEPARTMENT OF PATHOLOGY AND [address] [place] [phone] [facility] Urine culture (08/11/2017 12:10 PM CDT) Urine culture isolate Mixed Gram positive pietro [facility] DEPARTMENT OF 10-3 cfu/ml PATHOLOGY AND GENOMIC (A) MEDICINE Comment: Specimen Information Specimen Source: Urine Specimen Site: Clean catch Specimen Urine Performing Organization Address [facility] Phone Number [facility] DEPARTMENT OF PATHOLOGY AND [address] [place] [phone] [facility] Serum electrophoresis (08/11/2017 12:10 PM CDT) Protein 8.1 6.3 - 8.3 g/dL [facility] DEPARTMENT OF Comment: PATHOLOGY AND GENOMIC 4.6-7.0 g/dL MEDICINE 1 week 4.4-7.6 g/dL 7 months-1year5.1-7.3 g/dL 1-2 years5.6-7.5 g/dL >3 years6.0-8.0 g/dL 18-150 6.3-8.3 g/dL SPE albumin 5.02 4.00 - 5.30 g/dL [facility] DEPARTMENT OF PATHOLOGY AND GENOMIC MEDICINE SPE alpha 1 0.21 0.10 - 0.25 g/dL [facility] DEPARTMENT OF PATHOLOGY AND GENOMIC MEDICINE SPE alpha 2 0.75 0.58 - 0.84 g/dL [facility] DEPARTMENT OF PATHOLOGY AND GENOMIC MEDICINE SPE beta 0.83 0.50 - 1.10 g/dL [facility] DEPARTMENT OF PATHOLOGY AND GENOMIC MEDICINE SPE gamma 1.30 0.60 - 1.30 g/dL [facility] DEPARTMENT OF PATHOLOGY AND GENOMIC MEDICINE SPE extended See CommentComment: An [facility] DEPARTMENT OF interpretation essentially normal PATHOLOGY AND GENOMIC serum protein study. MEDICINE SPE interpretation See Comment [facility] DEPARTMENT OF Comment: PATHOLOGY AND GENOMIC Lambert Fall MD; Angie Millan, PhD; Kate Shipman, PhD; [place] XIOMARA Vidal MD Specimen Serum Performing Organization Address City/State/Zipcode Phone Number [facility] DEPARTMENT OF PATHOLOGY AND [address] [place] [address] GENOMIC MEDICINE Comprehensive metabolic panel (08/11/2017 12:10 PM CDT) Sodium 139 135 - 148 mEq/L [facility] DEPARTMENT OF PATHOLOGY AND GENOMIC MEDICINE Potassium 4.1 3.5 - 5.0 mEq/L [facility] DEPARTMENT OF PATHOLOGY AND GENOMIC MEDICINE Chloride 97 (L) 98 - 112 mEq/L [facility] DEPARTMENT OF PATHOLOGY AND GENOMIC MEDICINE CO2 22 (L) 24 - 31 mEq/L [facility] DEPARTMENT OF PATHOLOGY AND GENOMIC MEDICINE Anion gap 20 (H) 7 - 15 mEq/L [facility] DEPARTMENT OF Comment: PATHOLOGY AND GENOMIC Starting from July , anion gap calculation MEDICINE no longer incorporates potassium. Please note the change. BUN 30 (H) 6 - 20 mg/dL [facility] DEPARTMENT OF PATHOLOGY AND GENOMIC MEDICINE Creatinine 4.7 (H) 0.5 - 0.9 mg/dL [facility] DEPARTMENT OF PATHOLOGY AND GENOMIC MEDICINE Glucose 198 (H) 65 - 99 mg/dL [facility] DEPARTMENT OF PATHOLOGY AND GENOMIC MEDICINE Calcium 9.2 8.3 - 10.2 mg/dL [facility] DEPARTMENT OF PATHOLOGY AND GENOMIC MEDICINE Protein 8.4 (H) 6.3 - 8.3 g/dL [facility] DEPARTMENT OF Comment: PATHOLOGY AND GENOMIC [place] 4.6-7.0 g/dL MEDICINE 1 week 4.4-7.6 g/dL 7 months-1year5.1-7.3 g/dL 1-2 years5.6-7.5 g/dL >3 years6.0-8.0 g/dL 18-150 6.3-8.3 g/dL Albumin 3.6 3.5 - 5.0 g/dL [facility] DEPARTMENT OF PATHOLOGY AND GENOMIC MEDICINE A/G ratio 0.8 0.7 - 3.8 [facility] DEPARTMENT OF PATHOLOGY AND GENOMIC MEDICINE Alkaline phosphatase 269 (H) 35 - 104 U/L [facility] DEPARTMENT OF PATHOLOGY AND GENOMIC MEDICINE AST 31 10 - 35 U/L [facility] DEPARTMENT OF PATHOLOGY AND GENOMIC MEDICINE ALT 35 5 - 50 U/L [facility] DEPARTMENT OF PATHOLOGY AND GENOMIC MEDICINE Total bilirubin 1.1 0.0 - 1.2 mg/dL [facility] DEPARTMENT OF PATHOLOGY AND GENOMIC MEDICINE Specimen Plasma specimen Performing Organization Address City/State/Zipcode Phone Number [facility] DEPARTMENT OF PATHOLOGY AND [address] [place] [address] GENOMIC MEDICINE after 05/09/2017 Insurance Payer Benefit Plan / Group Subscriber ID Type Phone Address MEDICARE MEDICARE PART A AND B xxxxxxxxxx Medicare [place], [place] Advance Directives Patient has advance care planning documents on file. For more information, please contact:Sandor Lewis[address] [place] [address]
--- OUTSIDE RECORDS SUMMARY | 2018-05-10 12:21 | XMS REPORT | Clinical Summary ---
:[address] [facility] Address [address] [place] [address] Care Team Providers Name Role Phone Unavailable Primary Care Provider Unavailable Allergies Not on File Medications Not on file Active Problems Not on file Encounters Date Type Specialty Care Team Description 06/16/2017 Abstract Transplant Margo Valle 06/13/2017 Abstract Margo Reynoso 06/08/2017 Telephone Transplant Margo Valle Kidney Transplant Pre- evaluation 06/08/2017 Abstract Margo Reynoso 06/06/2017 Abstract Transplant Margo Valle after 05/09/2017 Social History Tobacco Use Types [...] (169 lb 12.1 oz) 06/06/2017 10:06 AM [employer] Height 160 cm (5' 3") 06/06/2017 10:06 AM [employer] Body Mass Index 30.07 06/06/2017 10:06 AM [employer] Plan of Treatment Not on file Results Not on fileafter 05/09/2017 Insurance Payer Benefit Plan / Group Subscriber ID Type Phone Address [employer] [facility]x [facility] MEDICAID MEDICAID [facility] xxxxxxxxx Medicaid
--- NOTE | 2018-05-10 13:24 | RAD REPORT ---
EXAM DESCRIPTION: CT - [id number] - 05/10/2018 1:02 pm CLINICAL HISTORY: Trauma, head and neck injury. fall, headache, neck pain COMPARISON: Head C Spine Mpr Wo Con dated 03/05/2018 TECHNIQUE: Axial 5 mm thick images of the head were obtained. Axial 2 mm thick images of the cervical spine were obtained with sagittal and coronal reconstruction images generated and reviewed. All CT scans are performed using dose optimization technique as appropriate and may include automated exposure control or mA/KV adjustment according to patient size. FINDINGS: CT HEAD WITHOUT CONTRAST: No acute hemorrhage, hydrocephalus or extra-axial collection is identified.No areas of brain edema or midline shift. The paranasal sinuses and mastoids are clear.The calvarium is intact. CT CERVICAL SPINE WITHOUT CONTRAST: Again noted is a fracture involving the anterior inferior margin of the C6 body. This was previously present on the most recent comparative study. On today's examination, the fracture fragment displacem ent has slightly increased now measuring about 3 mm.No new fracture or subluxation seen. Moderate C5- 6 degenerative changes are present.Prevertebral soft tissues are mildly thickened. IMPRESSION: No acute intracranial finding is seen. Again noted is a teardrop type fracture involving the anterior inferior aspect the C6 vertebral body. This was present on the comparative study, however fracture fragment displacement is slightly increa sed since the comparative study. No new/acute cervical spine fracture or subluxation is seen.
--- NOTE | 2018-05-10 13:29 | RAD REPORT ---
EXAM DESCRIPTION: CT - Abdomen Pelvis Wo Contrast - 05/10/2018 1:02 pm CLINICAL HISTORY: Abdominal pain. fall, abd and left inferior rib pain COMPARISON: Head C Spine Mpr Wo Con dated 03/05/2018 TECHNIQUE: CT imaging of the abdomen and pelvis was performed without contrast. Solid organ, bowel a nd vascular assessment is limited due to lack of IV and oral contrast. All CT scans are performed using dose optimization technique as appropriate and may include automated exposure control or mA/KV adjustment according to patient size. FINDINGS: The lower lung gomez are clear. Mild ascites is noted in the abdomen and pelvis.The a gallstone is present in the gallbladder. Both n ative kidneys are atrophic. The liver, spleen, pancreas and adrenal glands are within normal limits for noncontrast study. No bow el obstruction seen. No free air or abscess. The appendix is normal. Aortic atherosclerosis. No acute fractures demonstrated. IMPRESSION: No acute finding is demonstrated. Mild ascites. Atrophic [place] kidneys. A limited non-contrast examination was performed as detailed.
--- NOTE | 2018-05-10 13:40 | RAD REPORT ---
EXAM DESCRIPTION: RAD - Femur Left - 05/10/2018 1:32 pm CLINICAL HISTORY: PAIN Trauma, fall COMPARISON: No comparisons FINDINGS: No fracture or dislocation of the left femur is seen.
--- NOTE | 2018-05-10 13:55 | EDPHYS ---
Physician Documentation [facility] Name: Qiana Valdez Age: 62 yrs Sex: Female : 1955 Arrival Date: 05/10/2018 Time: 12:19 Bed 5 Private MD: Wild Bustamante ED Physician Adam Lau HPI: 05/10 12:52 This 62 yrs old Female presents to ER via Wheelchair with complaints of Fall rn Injury. 12:52 Details of fall: The patient fell from an upright position, while standing. Onset: The rn symptoms/episode began/occurred yesterday. Associated injuries: The patient sustained injury to the head, neck injury, injury to the chest, left hip. Severity of symptoms: At their worst the symptoms were mild, in the emergency department the symptoms are unchanged. The patient has not experienced similar symptoms in the past. Reports walking, tripped, fell onto left side, report head hurts, neck hurts, left ribs hurt, left hip hurts, is ambulatory but hurts.. Historical: - Allergies: 14:07 No Known Allergies; bp - PMHx: 14:07 Diabetes - IDDM; ESRD; Hypertension; bp - Immunization history: Last tetanus immunization: unknown. - Social history:: Smoking status: Patient/guardian denies using tobacco. - Ebola Screening: : Patient negative for fever greater than or equal to 101.5 degrees Fahrenheit, and additional compatible Ebola Virus Disease symptoms Patient denies exposure to infectious person Patient denies travel to an Ebola-affected area in the 21 days before illness onset No symptoms or risks identified at this time. - Family history:: not pertinent. - Hospitalizations: : No recent hospitalization is reported. ROS: 12:54 Constitutional: Negative for fever, chills, and weight loss, Eyes: Negative for injury, rn pain, redness, and discharge, Neck: + neck pain Cardiovascular: + left rib pain Respiratory: Negative for shortness of breath, cough, wheezing Abdomen/GI: + left abd pain MS/Extremity: + left hip pain Skin: Negative for injury, rash, and discoloration, Neuro: + headache Exam: 12:54 Constitutional: This is a well developed, well nourished patient who is awake, alert, rn and in no acute distress. Head/Face: Normocephalic, atraumatic. Eyes: Pupils equal round and reactive to light, extra-ocular motions intact. Lids and lashes normal. Conjunctiva and sclera are non-icteric and not injected. Cornea within normal limits. Periorbital areas with no swelling, redness, or edema. Neck: Trachea midline, no thyromegaly or masses palpated, and no cervical lymphadenopathy. Supple, full range of motion without nuchal rigidity, or vertebral point tenderness. No Meningismus. Chest/axilla: Normal chest wall appearance and motion. Nontender with no deformity. No lesions are appreciated. Cardiovascular: Regular rate and rhythm, No pulse deficits. Respiratory: Lungs have equal breath sounds bilaterally, clear to auscultation . No increased work of breathing, no retractions or nasal flaring. Abdomen/GI: soft, non-tender Back: No spinal tenderness. No costovertebral tenderness. Full range of motion. MS/ Extremity: Pulses equal, no cyanosis. Neurovascular intact. Full, normal range of motion. Equal circumference. Neuro: Awake and alert, GCS 15, oriented to person, place, time, and situation. Cranial nerves II-XII grossly intact. Motor strength 5/5 in all extremities. Sensory grossly intact. Cerebellar exam normal. Normal gait. Vital Signs: 12:39 BP 153 / 80; Pulse 68; Resp 16; Temp 98; Pulse Ox 98% ; Weight 72.57 kg; bp 14:05 BP 124 / 43; Pulse 65; Resp 14; Pulse Ox 98% ; bp [place] Coma Score: 12:39 Eye Response: spontaneous(4). Verbal Response: oriented(5). Motor Response: obeys bp commands(6). Total: 15. Trauma Score (Adult): 12:39 Eye Response: spontaneous(1); Verbal Response: oriented(1); Motor Response: obeys bp commands(2); Systolic BP: > 89 mm Hg(4); Respiratory Rate: 10 to 29 per min(4); Gautam Score: 15; Trauma Score: 12 MDM: 12:34 Patient medically screened. rn 13:52 Differential diagnosis: abrasion, closed head injury, contusion, fracture, sprain, rn strain. 13:52 Data reviewed: vital signs, nurses notes, radiologic studies, CT scan, plain films, and rn as a result, I will discharge patient. Counseling: I had a detailed discussion with the patient and/or guardian regarding: the historical points, exam findings, and any diagnostic results supporting the discharge/admit diagnosis, radiology results, the need for outpatient follow up, to return to the emergency department if symptoms worsen or persist or if there are any questions or concerns that arise at home. Special discussion: I discussed with the patient/guardian in detail that at this point there is no indication for admission to the hospital. It is understood, however, that if the symptoms persist or worsen the patient needs to return immediately for re-evaluation. 05/10 12:39 Order name: CT Head C Spine; Complete Time: 13:49 rn 05/10 12:39 Order name: CT Abd/Pelvis - Without Cont; Complete Time: 13:49 rn 05/10 12:39 Order name: XRAY Femur LEFT; Complete Time: 13:49 rn Administered Medications: 14:04 Drug: [place] 5 mg-325 mg 1 tabs Route: PO; bp 14:04 Follow up: Response: Medication administered at discharge. bp Disposition: 05/10/18 13:53 Discharged to Home. Impression: Contusion of left hip, Superficial injury of head. - Condition is Stable. - Discharge Instructions: Contusion, Head Injury, Adult, Hip Pain. - Prescriptions for Tylenol- Codeine #3 300-30 mg Oral Tablet - take 1 tablet by ORAL route every 6 hours As needed; 15 tablet. - Medication Reconciliation Form, Thank You Letter, Antibiotic Education, Prescription Opioid Use form. - Follow up: Private Physician; When: As needed; Reason: Recheck today's complaints, Re-evaluation by your physician. - Problem is new. - Symptoms have improved. Signatures: Dispatcher [employer] EDMS Adam Lau MD MD rn Peltier, Brian, RN RN bp Corrections: (The following items were deleted from the chart) 14:11 13:53 05/10/2018 13:53 Discharged to Home. Impression: Contusion of left hip; bp Superficial injury of head. Condition is Stable. Forms are Medication Reconciliation Form, Thank You Letter, Antibiotic Education, Prescription Opioid Use. Follow up: Private Physician; When: As needed; Reason: Recheck today's complaints, Re-evaluation by your physician. Problem is new. Symptoms have improved. rn
--- NOTE | 2018-05-10 13:55 | ER ---
Nurse's Notes [facility] Name: Qiana Valdez Age: 62 yrs Sex: Female : 1955 Arrival Date: 05/10/2018 Time: 12:19 Bed 5 Private MD: Wild Bustamante Diagnosis: Contusion of left hip;Superficial injury of head Presentation: 05/10 12:36 Presenting complaint: Patient states: tripped and fell last night, fell onto left side, iw c/o pain to left hip and left ribs. Care prior to arrival: None. Mechanism of Injury: Fall from standing position. Trauma event details: Injury occurred in the [facility]. 12:36 Acuity: SIXTO 4 iw 12:36 Method Of Arrival: Wheelchair iw 14:06 Transition of care: patient was not received from another setting of care. Onset of bp symptoms is unknown. Risk Assessment: Do you want to hurt yourself or someone else? Patient reports no desire to harm self or others. Initial Sepsis Screen: Does the patient meet any 2 criteria? No. Patient's initial sepsis screen is negative. Does the patient have a suspected source of infection? No. Patient's initial sepsis screen is negative. Trauma Activation: Not Applicable Physician: ED Physician; Name: ; Notified At: ; Arrived At: Physician: General Surgeon; Name: ; Notified At: ; Arrived At: Physician: Radiology; Name: ; Notified At: ; Arrived At: Physician: Respiratory; Name: ; Notified At: ; Arrived At: Physician: Lab; Name: ; Notified At: ; Arrived At: Historical: - Allergies: 14:07 No Known Allergies; bp - PMHx: 14:07 Diabetes - IDDM; ESRD; Hypertension; bp - Immunization history: Last tetanus immunization: unknown. - Social history:: Smoking status: Patient/guardian denies using tobacco. - Ebola Screening: : Patient negative for fever greater than or equal to 101.5 degrees Fahrenheit, and additional compatible Ebola Virus Disease symptoms Patient denies exposure to infectious person Patient denies travel to an Ebola-affected area in the 21 days before illness onset No symptoms or risks identified at this time. - Family history:: not pertinent. - Hospitalizations: : No recent hospitalization is reported. Screenin:39 Abuse screen: Denies threats or abuse. Denies injuries from another. Tuberculosis bp screening: No symptoms or risk factors identified. 14:08 Nutritional screening: No deficits noted. Fall Risk None identified. Fall in past 12 bp months (25 points). No secondary diagnosis (0 pts). No IV (0 pts). Ambulatory Aid- None/Bed Rest/Nurse Assist (0 pts). Gait- Weak (10 pts.). Mental Status- Oriented to own ability (0 pts). Total Overton Fall Scale indicates Low Risk Score (25-44 pts). Fall prevention measures have been instituted. Side Rails Up X 2. Primary Survey: 12:39 NO uncontrolled hemorrhage observed. A: The patient is alert. Airway: patent. bp Breathing/Chest: Respiratory pattern: regular, Respiratory effort: spontaneous, unlabored. Circulation: Skin color: pink, Skin temperature: warm, dry. Disability Alert. Exposure/Environment: There is no evidence of uncontrolled external bleeding. Obvious injury(ies) are noted at this time: LEFT HIP BRUISING A warming method has been applied: A warm blanket has been provided to the patient. 14:06 Reassessment Breathing/Chest Respiratory pattern Regular Respiratory effort Spontaneous bp Unlabored. Secondary Survey: 12:39 HEENT: No deficits noted. Gastrointestinal: No deficits noted. : No signs and/or bp symptoms were reported regarding the genitourinary system. Musculoskeletal: Circulation, motion, and sensation intact. Range of motion: limited in left hip and left knee. Assessment: 12:41 General: Appears in no apparent distress. uncomfortable, Behavior is cooperative, bp appropriate for age, anxious. Pain: Complains of pain in left knee and left hip. Neuro: Level of Consciousness is awake, alert, obeys commands, Oriented to person, place, time, situation, Appropriate for age. EENT: No deficits noted. Cardiovascular: No deficits noted. Respiratory: Airway is patent Respiratory effort is even, unlabored, Respiratory pattern is regular, symmetrical. GI: No signs and/or symptoms were reported involving the gastrointestinal system. : No signs and/or symptoms were reported regarding the genitourinary system. Derm: No deficits noted. Musculoskeletal: Circulation, motion, and sensation intact. Range of motion: limited in left knee and left hip. Injury Description: Bruise sustained to left hip. 13:43 Reassessment: PT RETURNED FROM CT. ALL CURRENT ORDERS COMPLETED, RESULTS PENDING. bp Vital Signs: 12:39 BP 153 / 80; Pulse 68; Resp 16; Temp 98; Pulse Ox 98% ; Weight 72.57 kg; bp 14:05 BP 124 / 43; Pulse 65; Resp 14; Pulse Ox 98% ; bp Boyers Coma Score: 12:39 Eye Response: spontaneous(4). Verbal Response: oriented(5). Motor Response: obeys bp commands(6). Total: 15. Trauma Score (Adult): 12:39 Eye Response: spontaneous(1); Verbal Response: oriented(1); Motor Response: obeys bp commands(2); Systolic BP: > 89 mm Hg(4); Respiratory Rate: 10 to 29 per min(4); Boyers Score: 15; Trauma Score: 12 ED Course: 12:19 Patient arrived in ED. mr 12:20 Wild Bustamante MD is Private Physician. mr 12:33 Adam Lau MD is Attending Physician. rn 12:37 Triage completed. iw 12:38 Koffi Dubose, SUNITA is Primary Nurse. bp 12:39 Patient has correct armband on for positive identification. Bed in low position. Call bp light in reach. Side rails up X2. Adult w/ patient. 12:39 Patient maintains SpO2 saturation greater than 95% on room air. Thermoregulation: warm bp blanket given to patient. 12:59 CT completed. Patient tolerated procedure well. Patient moved to CT via wheelchair. Patient moved back from CT. 13:04 CT Head C Spine In Process Unspecified. EDMS 13:04 CT Abd/Pelvis - Without Cont In Process Unspecified. EDMS 13:05 Patient moved to radiology via wheelchair. 13:28 X-ray completed. Patient tolerated procedure well. mh1 13:30 XRAY Femur LEFT In Process Unspecified. EDMS 13:32 Patient moved back from radiology. mh1 14:05 No provider procedures requiring assistance completed. Patient did not have IV access bp during this emergency room visit. 14:06 Arm band placed on. bp Administered Medications: 14:04 Drug: [place] 5 mg-325 mg 1 tabs Route: PO; bp 14:04 Follow up: Response: Medication administered at discharge. bp Intake: 12:39 PO: 0ml; Total: 0ml. bp Output: 12:39 Urine: 0ml; Total: 0ml. bp Outcome: 13:53 Discharge ordered by . rn 14:09 Discharged to home via wheelchair, with family. bp 14:09 Condition: stable 14:09 Patient's length of stay was not longer than 2 hours. 14:10 Discharge instructions given to patient, Instructed on discharge instructions, follow bp up and referral plans. medication usage, Demonstrated understanding of instructions, follow-up care, medications, Prescriptions given X 1. 14:11 Patient left the ED. bp Signatures: Dispatcher [employer] EDPR BermudezBrittni cruz mr UlicesGayle Brook Gordillo Irene, RN RN iw Adam Lau MD MD rn Warren, Koffi Thomason, SUNITA RN bp
[2018-05-10] MEDS ORDERED: HYDROCODONE/APAP 5/325 MG TAB ONE (14:10)
== END 2018-05-10 14:11 | disposition home or self-care (01) ==
LOC: ER 12:17
DX: S00.90XA Unspecified superficial injury of unspecified part of head, initial encounter (principal); S70.02XA Contusion of left hip, initial encounter; W01.0XXA Fall on same level from slipping, tripping and stumbling without subsequent striking against object, initial encounter; Y93.01 Activity, walking, marching and hiking; Y92.9 Unspecified place or not applicable
CPT/HCPCS: 70450; 72125; 74176; 99284

== ENCOUNTER 2018-10-09 07:23 | Inpatient (IN) | payer OTHER ==
[2018-10-09 07:52] LABS: Absolute Lymphocytes (CBC) 0.9 K/uL (0.7-4.9); Basophils % 1.2 % (0-1.3); Eosinophils % 7.7 % (0-4.4); Hematocrit 35.4 % (36.0-45.0); Lymphocytes % 28.2 % (15.3-44.8); MPV 8.7 fL (7.6-11.3); Monocytes % 12.2 % (3.3-12.3); RBC Red Blood Cell Count 3.63 M/uL (3.86-4.86)
[2018-10-09 07:53] LABS: Protime INR 1.03
[2018-10-09] MEDS ORDERED: NITROGLYCERIN 0.4 MG/TAB SL ONE (07:58)
--- OUTSIDE RECORDS SUMMARY | 2018-10-09 08:52 | XMS REPORT ---
:1955 [facility] Address [address] [place] [address] [address] [place] [address] Care Team Providers Name Role Phone Unavailable Unavailable Unavailable Problems This patient has no known problems. Allergies, Adverse Reactions, Alerts This patient has no known allergies or adverse reactions. Medications This patient has no known medications. Encounters Start End Encounter Admission Attending Care Care Encounter Date/Time Date/Time Type Type Clinicians Facility Department ID 2018-09-18 Outpatient [facility] [id number] 08:26:04 2018-01-22 2018-01-22 Emergency E [facility] [id number] 16:17:00 16:17:00
--- OUTSIDE RECORDS SUMMARY | 2018-10-09 08:52 | XMS REPORT | Clinical Summary ---
:1955 Author Organization [facility] Address [address] [place] [id number] Care Team Providers Name Role Phone Unavailable Primary Care Provider Unavailable Allergies Not on File Medications Not on file Active Problems Not on file Social History Tobacco Use Types Packs/Day Years Used Date Never Assessed Sex Assigned at Date Recorded Not on file Job Start Date Occupation Industry Not on file Not on file Not on file Travel History Travel Start Travel End No recent travel history available. Last Filed Vital Signs Not on file Plan of Treatment Not on file Results Not on fileafter 10/08/2017 Insurance Payer Benefit Plan / Group Subscriber ID Type Phone Address [employer] xxxxxxxxxx [facility] MEDICAID MEDICAID [facility] Medicaid
--- OUTSIDE RECORDS SUMMARY | 2018-10-09 08:52 | XMS REPORT | Clinical Summary ---
:1955 Author Organization [facility] Address [address] [place] [address] Care Team Providers Name Role Phone Wild Bustamante MD Primary Care Provider Allergies Active Allergy Reactions Severity Noted Date Comments No Known Drug Allergies 08/19/2015 Medications Medication Sig Dispensed Refills Start Date End Date Status ergocalciferol Take 50,000 0 Active (VITAMIN D2) 50,000 Units by mouth unit capsule once a week. multivitamin Take 1 tablet 0 Active (DAILY-LARON ORAL) by mouth daily. doxazosin (CARDURA) Take 4 mg by 0 Active 4 MG tablet mouth 2 (two) times a day. atorvastatin Take 40 mg by 0 Active (LIPITOR) 40 MG mouth daily. tablet pantoprazole Take 40 mg by 0 Active (PROTONIX) 40 MG EC mouth daily. tablet isosorbide Take 30 mg by 0 Active mononitrate (IMDUR) mouth daily. 30 MG 24 hr tablet amLODIPine (NORVASC) Take 5 mg by 0 Discontinued 10 mg tablet mouth daily. 9 carvedilol (COREG) Take 25 mg by 0 Discontinued 25 MG tablet mouth every 12 9 (twelve) hours. furosemide (LASIX) Take 80 mg by 0 Discontinued 80 mg tablet mouth 2 (two) 9 times a day. lisinopril Take 20 mg by 0 Discontinued (PRINIVIL,ZESTRIL) mouth daily. 9 20 mg tablet insulin GLARGINE Inject under 0 Discontinued (LANTUS) 100 unit/mL the skin See 9 injection (vial) Admin Instructions. 20 units SQ in the am and 12 units SQ at bedtime. sevelamer (RENVELA) Take 3,200 mg 0 Discontinued 800 mg tablet by mouth 3 9 (three) times a day with meals. simvastatin (ZOCOR) Take 40 mg by 0 Discontinued 40 MG tablet mouth nightly. 9 ondansetron (ZOFRAN) Take 4 mg by 0 Discontinued 4 MG tablet mouth every 8 9 (eight) hours as needed for nausea or vomiting. insulin ASPART Inject 5 Units 0 Discontinued (NovoLOG) 100 under the skin 9 unit/mL injection 3 (three) times a day before meals. hydrALAZINE Take 50 mg by 0 Discontinued (APRESOLINE) 50 MG mouth 2 (two) 9 tablet times a day. ondansetron (ZOFRAN) Take 1 tablet 120 tablet 0 07/05/2018 4 MG tablet (4 mg total) 9 by mouth every 8 (eight) hours as needed for nausea or vomiting for up to 30 days. hydrALAZINE Take 1 tablet 90 tablet 0 07/05/2018 (APRESOLINE) 100 MG (100 mg total) 9 tablet by mouth every 8 (eight) hours for 30 days. NIFEdipine XL Take 1 tablet 60 tablet 0 07/05/2018 (PROCARDIA XL) 60 MG (60 mg total) 9 24 hr tablet by mouth 2 (two) times a day for 30 days. polyethylene glycol Take 17 g by 30 packet 0 07/06/2018 Discontinued (MIRALAX) 17 gram mouth daily 9 packet for 30 days. sennosides-docusate Take 1 tablet 60 tablet 0 07/05/2018 sodium (SENOKOT-S) by mouth 2 9 8.6-50 mg per tablet (two) times a day for 30 days. HYDROcodone-acetamin Take 1 tablet 40 tablet 0 07/05/2018 ophen (NORCO) 5-325 by mouth every 9 mg per tablet 6 (six) hours as needed for moderate pain for up to 10 days. Max Daily Amount: 4 tablets HYDROcodone-acetamin Take 1 tablet 0 Discontinued ophen (NORCO) 5-325 by mouth every 9 mg per tablet 4 (four) hours as needed for moderate pain (every 4-6 hours as needed for pain). sevelamer (RENVELA) Take 4 tablets 360 tablet 0 07/22/2018 800 mg tablet (3,200 mg 9 total) by mouth 3 (three) times a day with meals for 30 days. metoclopramide Take 1 tablet 60 tablet 0 07/22/2018 (REGLAN) 5 MG tablet (5 mg total) 9 by mouth 2 (two) times a day for 30 days. HYDROcodone-acetamin Take 1 tablet 42 tablet 0 07/22/2018 ophen (NORCO) 5-325 by mouth every 9 mg per tablet 4 (four) hours as needed for severe pain for up to 7 days. Max Daily Amount: 6 tablets mupirocin Apply 30 g 1 07/22/2018 (BACTROBAN) 2 % topically 9 ointment daily for 10 days. Active Problems Problem Noted Date Hematoma 07/20/2018 Acute gastroenteritis 06/21/2018 Type 2 diabetes mellitus with diabetic chronic kidney disease 06/28/2017 Encounters Date Type Specialty Care Team Description 07/20/2018 Surgery General Surgery Sandy Stevens DEBRIDEMENT LEFT MD Meagan ARM, I&D OF HEMATOMA, COMPLEX CLOSURE LEFT ARM 07/20/2018 Anesthesia Event General Surgery Joseline Arthur CRNA 07/20/2018 - Hospital Encounter General Internal Sandy Stevens 07/22/2018 MD Mj Acuna Salman Siraj, MD 06/26/2018 Anesthesia Event General Surgery Anjelica Nichols MD 06/26/2018 Surgery General Surgery Klaus Denny washout of left TMD Esvin forearm wound 06/24/2018 Anesthesia Event General Surgery Millie Baker, CAD OPERATOR 06/24/2018 Surgery General Surgery Hieu, KARLA FORE ARM MD Agusto EXPLORATION , HEMATOMA EVACUATION AND HEMOSTASIS 06/22/2018 Anesthesia Event General Surgery Angelina Moreno NP 06/22/2018 Surgery General Surgery Klaus Denny LEFT UPPER T.MD EXTREMITY AV FISTULA REVISION , Tunnelled Dialysis Catheter Placement Left IJ 06/21/2018 - Hospital Encounter General Internal Mj, Salman End stage renal 07/05/2018 Medicine MD Meenu disease ([facility]) 03/22/2018 Documentation Transplant [place], [facility] robert Phillips RN 12/09/2017 Documentation Transplant Michela Cordova Cardio clearance/echo/stre ss test (Cardio clearance 11/24/17, echo/stress test scanned in media. ) 12/07/2017 Documentation Transplant Desiree Angela 11/24/2017 Documentation Transplant Michela Cordova Cardio consult (Cardio consult 11/17/17 scanned in media.); Urology clearance (Urology clearance 11/15/17 scanned in media.) 11/15/2017 Hospital Encounter Radiology Starr Shipman ESRD (end stage MD Bonita renal disease) 11/15/2017 Hospital Encounter Radiology Starr Shipman ESRD (end stage MD Bonita renal disease) 11/15/2017 Hospital Encounter Transplant Louise Wiggins MD 11/15/2017 Hospital Encounter Transplant Starr Shipman ESRD (end stage MD Bonita renal disease) 11/14/2017 Lab Lab Starr Shipman MD [...] Transplant Michela Cordova left msg re: day 2/ kidney eval (10:44am left msg on pt cell & sp w/dtr Stacey & she will have pt call me back after dialysis. pt avail /Th. ) after 10/08/2017 Immunizations Name Dates Previously Given Next Due FLUCELVAX QUAD PF (0.5mL syringe) 07/05/2018 (Deferred: ) Social History Tobacco Use Types Packs/Day Years Used Date Never Smoker Smokeless Tobacco: Never Used Alcohol Use Drinks/Week oz/Week Comments No Alcohol Habits Answer Date Recorded How often do you have a drink containing alcohol? Never 06/21/2018 How many drinks containing alcohol do you have on a typical Not asked day when you are drinking? How often do you have six or more drinks on one occasion? Not asked Sex Assigned at Date Recorded Not on file Job Start Date Occupation Industry Not on file Not on file Not on file Travel History Travel Start Travel End No recent travel history available. Last Filed Vital Signs Vital Sign Reading Time Taken Blood Pressure 158/70 07/22/2018 10:51 AM CDT Pulse 66 07/22/2018 10:51 AM CDT Temperature 36.6 C (97.8 F) 07/22/2018 8:24 AM CDT Respiratory Rate 18 07/22/2018 8:24 AM CDT Oxygen Saturation 97% 07/22/2018 9:03 AM CDT Inhaled Oxygen Concentration - - Weight 71.2 kg (157 lb) 07/20/2018 3:19 PM CDT Height 160 cm (5' 3") 07/20/2018 3:19 PM CDT Body Mass Index 27.81 07/20/2018 3:19 PM CDT Plan of Treatment Health Maintenance Due Date Last Done Comments DIABETIC RETINAL EYE EXAM 1955 DIABETIC FOOT EXAM 09/05/1967 COLONOSCOPY SCREENING 09/05/2007 SHINGLES VACCINES (#1) 09/05/2007 INFLUENZA VACCINE 11/02/2018 BREAST CANCER SCREENING 11/16/2019 11/15/2017, 04/10/2015 Implants Implanted Type Area [employer] Device Shelf Model / Identifier Expiration Serial / Date Lot Catheter Hmodial Dura-Flow Prcrv Bsc Valved Pelbl Shth 28cm - [id number] Central N/A: N/A [employer] 06/23/2019 [id number] / Implanted: Qty: 1 on 06/22/2018 by Klaus Denny MD [employer] / Catheters Pacemaker Pacemaker Kit Selnt Fibrin Humn Hmsts Surgy 5ml Evicel - [id number] Surgical N/A: N/A [facility]- 06/23/2019 [id number] / Implanted: Qty: 1 on 06/22/2018 by Klaus Denny MD Implants; / Expanders; Extenders; Surgical Wires Particle Soft-Tissue Grft Micronized For Impntn Recon 1000mg - [id number] Surgical Arm, [employer] 02/02/2020 [id number] / Implanted: Qty: 1 on 06/24/2018 by Agusto Hagen MD Implants; Lower / Expanders; Extenders; Surgical Wires Kit Selnt Fibrin Humn Hmsts Surgy 5ml Evicel - [id number] Surgical N/A: N/A ETHIREPLACED BY [facility] 06/27/2019 [id number] / Implanted: Qty: 1 on 06/26/2018 by Klaus Denny MD Implants; / Expanders; Extenders; Surgical Wires Procedures Procedure Name Priority Date/Time Associated Comments Diagnosis POC GLUCOSE Routine 07/22/2018 8:22 Results for this AM CDT procedure are in the results section. ESTIMATED GFR Routine 07/22/2018 5:30 Results for this AM CDT procedure are in the results section. BASIC METABOLIC PANEL Routine 07/22/2018 5:30 Results for this AM CDT procedure are in the results section. HC COMPLETE BLD COUNT Routine 07/22/2018 5:30 Results for this W/AUTO DIFF AM CDT procedure are in the results section. POC GLUCOSE Routine 07/21/2018 9:18 Results for this PM CDT procedure are in the results section. POC GLUCOSE Routine 07/21/2018 3:38 Results for this PM CDT procedure are in the results section. HEMODIALYSIS Routine 07/21/2018 8:47 AM CDT POC GLUCOSE Routine 07/21/2018 7:42 Results for this AM CDT procedure are in the results section. ESTIMATED GFR Routine 07/21/2018 6:15 Results for this AM CDT procedure are in the results section. BASIC METABOLIC PANEL Routine 07/21/2018 6:15 Results for this AM CDT procedure are in the results section. HC COMPLETE BLD COUNT Routine 07/21/2018 6:15 Results for this W/AUTO DIFF AM CDT procedure are in the results section. ESTIMATED GFR STAT 07/20/2018 9:45 Results for this PM CDT procedure are in the results section. BASIC METABOLIC PANEL STAT 07/20/2018 9:45 Results for this PM CDT procedure are in the results section. POC GLUCOSE Routine 07/20/2018 9:27 Results for this PM CDT procedure are in the results section. POC GLUCOSE Routine 07/20/2018 3:48 Results for this PM CDT procedure are in the results section. POC GLUCOSE Routine 07/20/2018 11:11 Results for this AM CDT procedure are in the results section. MN AN ELECTIVE Routine 07/20/2018 10:30 SUPRAGLOTTIC AIRWAY AM CDT Procedure Note - Millie Baker CRNA - 07/20/2018 10:30 AM CDT Airway Date/Time: 07/20/2018 9:42 AM Performed by: Millie Baker CRNA Authorized by: Yamil Hurd MD Location: OR Urgency: Elective Difficult Airway: No Anesthesiologist: Yamil Hurd MD Resident/CAD OPERATOR/AA: Millie Baker CRNA Performed by: resident/CAD OPERATOR/AA Preoxygenated with 100% O2: Yes C-spine Precautions Maintained Throughout: Yes Mask Ventilation: Easy mask Final Airway Type: Supraglottic airway Final LMA: I-Gel LMA Size: 4 Number of Attempts at Approach: 1 POC PANEL 4 Routine 07/20/2018 9:05 AM CDT PREPARE RBC STAT 07/20/2018 8:59 AM CDT FIBRINOGEN Routine 07/20/2018 8:59 AM CDT ESTIMATED GFR STAT 07/20/2018 8:59 AM CDT TYPE AND SCREEN STAT 07/20/2018 8:59 AM CDT PARTIAL THROMBOPLASTIN TIME STAT 07/20/2018 8:59 AM CDT Results for this (PTT) procedure are in the results section. PROTHROMBIN TIME WITH INR STAT 07/20/2018 8:59 AM CDT BASIC METABOLIC PANEL STAT 07/20/2018 8:59 AM CDT HC COMPLETE BLD COUNT W/AUTO STAT 07/20/2018 8:59 AM CDT Results for this DIFF procedure are in the results section. HEMODIALYSIS Routine 07/05/2018 12:05 AM CDT POC GLUCOSE Routine 07/04/2018 8:57 PM CDT POC GLUCOSE Routine 07/04/2018 5:07 PM CDT POC GLUCOSE Routine 07/04/2018 1:08 PM CDT NM GASTRIC EMPTYING Routine 07/04/2018 12:36 PM CDT POC GLUCOSE Routine 07/03/2018 7:08 PM CDT POC GLUCOSE Routine 07/03/2018 6:22 PM CDT HEMODIALYSIS Routine 07/03/2018 8:52 AM CDT POC GLUCOSE Routine 07/03/2018 8:08 AM CDT ESTIMATED GFR Routine 07/03/2018 6:45 AM CDT BASIC METABOLIC PANEL Routine 07/03/2018 6:45 AM CDT POC GLUCOSE Routine 07/02/2018 8:32 PM CDT POC GLUCOSE Routine 07/02/2018 5:10 PM CDT POC GLUCOSE Routine 07/02/2018 12:07 PM CDT POC GLUCOSE Routine 07/02/2018 8:05 AM CDT POC GLUCOSE Routine 07/02/2018 5:46 AM CDT ESTIMATED GFR Routine 07/02/2018 5:40 AM CDT MAGNESIUM LEVEL Routine 07/02/2018 5:40 AM CDT HC COMPLETE BLD COUNT W/AUTO Routine 07/02/2018 5:40 AM CDT Results for this DIFF procedure are in the results section. COMPREHENSIVE METABOLIC Routine 07/02/2018 5:40 AM CDT Results for this PANEL procedure are in the results section. XR CHEST 1 VW PORTABLE Routine 07/02/2018 5:03 AM CDT POC GLUCOSE Routine 07/02/2018 12:23 AM CDT POC GLUCOSE Routine 07/01/2018 9:19 PM CDT POC GLUCOSE Routine 07/01/2018 4:47 PM CDT LIPASE LEVEL Routine 07/01/2018 4:25 PM CDT HEPATIC FUNCTION PANEL Routine 07/01/2018 4:25 PM CDT POC GLUCOSE Routine 07/01/2018 1:11 PM CDT POC GLUCOSE Routine 07/01/2018 6:20 AM CDT MANUAL DIFFERENTIAL Routine 07/01/2018 6:15 AM CDT ESTIMATED GFR Routine 07/01/2018 6:15 AM CDT PROTHROMBIN TIME WITH INR Routine 07/01/2018 6:15 AM CDT BASIC METABOLIC PANEL Routine 07/01/2018 6:15 AM CDT CBC WITH PLATELET AND Routine 07/01/2018 6:15 AM CDT Results for this DIFFERENTIAL procedure are in the results section. POC GLUCOSE Routine 07/01/2018 12:32 AM CDT POC GLUCOSE Routine 06/30/2018 9:05 PM CDT POC GLUCOSE Routine 06/30/2018 5:55 PM CDT POC GLUCOSE Routine 06/30/2018 2:48 PM CDT ECHOCARDIOGRAM 2D COMPLETE W Routine 06/30/2018 2:30 PM CDT Results for this MMODE SPECTRAL COLOR DOPPLER procedure are in the (22131) results section. POC GLUCOSE Routine 06/30/2018 11:09 AM CDT ESTIMATED GFR Routine 06/30/2018 6:25 AM CDT BASIC METABOLIC PANEL Routine 06/30/2018 6:25 AM CDT POC GLUCOSE Routine 06/30/2018 3:21 AM CDT HEMODIALYSIS Routine 06/30/2018 12:05 AM CDT POC GLUCOSE Routine 06/29/2018 11:34 PM CDT POC GLUCOSE Routine 06/29/2018 9:07 PM CDT POC GLUCOSE Routine 06/29/2018 4:35 PM CDT POC GLUCOSE Routine 06/29/2018 1:13 PM CDT POC GLUCOSE Routine 06/29/2018 11:58 AM CDT POC GLUCOSE Routine 06/29/2018 7:50 AM CDT ESTIMATED GFR Routine 06/29/2018 5:00 AM CDT BASIC METABOLIC PANEL Routine 06/29/2018 5:00 AM CDT HC COMPLETE BLD COUNT W/AUTO Routine 06/29/2018 5:00 AM CDT Results for this DIFF procedure are in the results section. POC GLUCOSE Routine 06/29/2018 4:55 AM CDT POC GLUCOSE Routine 06/28/2018 11:23 PM CDT POC GLUCOSE Routine 06/28/2018 8:58 PM CDT POC GLUCOSE Routine 06/28/2018 5:46 PM CDT POC GLUCOSE Routine 06/28/2018 12:36 PM CDT TRANSFUSE RED BLOOD CELLS Routine 06/28/2018 11:48 AM CDT TRANSFUSE RED BLOOD CELLS Routine 06/28/2018 11:33 AM CDT POC GLUCOSE Routine 06/28/2018 7:25 AM CDT ESTIMATED GFR Routine 06/28/2018 4:30 AM CDT HC COMPLETE BLD COUNT W/AUTO Routine 06/28/2018 4:30 AM CDT Results for this DIFF procedure are in the results section. BASIC METABOLIC PANEL Routine 06/28/2018 4:30 AM CDT POC GLUCOSE Routine 06/28/2018 4:19 AM CDT HEMODIALYSIS Routine 06/28/2018 12:05 AM CDT POC GLUCOSE Routine 06/27/2018 11:58 PM CDT POC GLUCOSE Routine 06/27/2018 8:22 PM CDT POC GLUCOSE Routine 06/27/2018 3:52 PM CDT POC GLUCOSE Routine 06/27/2018 12:33 PM CDT POC GLUCOSE Routine 06/27/2018 11:17 AM CDT POC GLUCOSE Routine 06/27/2018 7:33 AM CDT POC GLUCOSE Routine 06/27/2018 6:14 AM CDT POC GLUCOSE Routine 06/27/2018 4:29 AM CDT POC GLUCOSE Routine 06/27/2018 3:41 AM CDT ESTIMATED GFR Routine 06/27/2018 2:30 AM CDT PHOSPHORUS LEVEL Routine 06/27/2018 2:30 AM CDT PARTIAL THROMBOPLASTIN TIME Routine 06/27/2018 2:30 AM CDT Results for this (PTT) procedure are in the results section. PROTHROMBIN TIME WITH INR Routine 06/27/2018 2:30 AM CDT IONIZED CALCIUM Routine 06/27/2018 2:30 AM CDT MAGNESIUM LEVEL Routine 06/27/2018 2:30 AM CDT HC COMPLETE BLD COUNT W/AUTO Routine 06/27/2018 2:30 AM CDT Results for this DIFF procedure are in the results section. BASIC METABOLIC PANEL Routine 06/27/2018 2:30 AM CDT POC GLUCOSE Routine 06/27/2018 12:29 AM CDT POC GLUCOSE Routine 06/26/2018 8:32 PM CDT ESTIMATED GFR Routine 06/26/2018 5:00 PM CDT PROTHROMBIN TIME WITH INR Routine 06/26/2018 5:00 PM CDT MAGNESIUM LEVEL Routine 06/26/2018 5:00 PM CDT HC COMPLETE BLD COUNT W/AUTO Routine 06/26/2018 5:00 PM CDT Results for this DIFF procedure are in the results section. BASIC METABOLIC PANEL Routine 06/26/2018 5:00 PM CDT POC GLUCOSE Routine 06/26/2018 4:33 PM CDT ANESTHESIA PERIPHERAL BLOCK Routine 06/26/2018 4:32 PM CDT Procedure Note - Anjelica Nichols MD - 06/26/2018 4:32 PM CDT Peripheral Block Performed by: Anjelica Nichols MD Authorized by: Anjelica Nichols MD Patient Location: ICU Start Time: 06/26/2018 2:31 PM End Time: 06/26/2018 2:43 PM Reason for Block: primary anesthetic Staff: Anesthesiologist: Anjelica Nichols MD Resident/CAD OPERATOR/AA: Millie Baker CRNA Performed by: Anesthesiologist Preprocedure: patient identified, IV checked, site and side verified, risks and benefits discussed, procedure verified, surgical consent complete, patient position confirmed, monitors and equipment checked, pre-op evaluation complete and site marked Time Out Performed: 06/26/2018 2:31 PM Peripheral Nerve Block: Patient Position: Right lateral decubitus Prep: patient draped Monitoring: Blood pressure monitoring, continuous pulse oximetry and heart rate Block Type: Supraclavicular Laterality: Left Injection Technique: Single injection Procedures: ultrasound guided Ultrasound documentation: Images saved on hard disk Needle: Needle Type: Pajunk Needle Gauge: 21 G Needle Length: 10 cm Assessment: Injection Assessment: Visualized needle/local anesthetic surrounding nerve , visualized pertinent vascular structures and nerves, needle tip visualized at all times during injection of medication, no symptoms of intraneural/intravenous injection and intermittent aspiration during local anesthetic administration Paresthesia Pain: None Heart Rate Change: No Slow Fractionated Injection: Yes Block outcome: No apparent complications, patient comfortable and patient tolerated procedure well POC GLUCOSE Routine 06/26/2018 12:53 PM CDT HEMOGLOBIN & HEMATOCRIT Routine 06/26/2018 12:00 PM CDT TRANSFUSE RED BLOOD CELLS Routine 06/26/2018 11:15 AM CDT TRANSFUSE RED BLOOD CELLS Routine 06/26/2018 10:20 AM CDT HEPATITIS B SURFACE ANTIBODY Routine 06/26/2018 9:09 AM CDT POC GLUCOSE Routine 06/26/2018 8:55 AM CDT TRANSFUSE RED BLOOD CELLS Routine 06/26/2018 8:39 AM CDT POC GLUCOSE Routine 06/26/2018 7:25 AM CDT POC GLUCOSE Routine 06/26/2018 6:13 AM CDT PREPARE RBC STAT 06/26/2018 5:35 AM CDT PREPARE RBC STAT 06/26/2018 5:35 AM CDT PREPARE RBC STAT 06/26/2018 5:35 AM CDT TYPE AND SCREEN STAT 06/26/2018 5:35 AM CDT ESTIMATED GFR Routine 06/26/2018 4:02 AM CDT FIBRINOGEN Routine 06/26/2018 4:02 AM CDT PROTHROMBIN TIME WITH INR Routine 06/26/2018 4:02 AM CDT PHOSPHORUS LEVEL Routine 06/26/2018 4:02 AM CDT PARTIAL THROMBOPLASTIN TIME Routine 06/26/2018 4:02 AM CDT Results for this (PTT) procedure are in the results section. MAGNESIUM LEVEL Routine 06/26/2018 4:02 AM CDT IONIZED CALCIUM Routine 06/26/2018 4:02 AM CDT HC COMPLETE BLD COUNT W/AUTO Routine 06/26/2018 4:02 AM CDT Results for this DIFF procedure are in the results section. BASIC METABOLIC PANEL Routine 06/26/2018 4:02 AM CDT POC GLUCOSE Routine 06/26/2018 4:00 AM CDT POC GLUCOSE Routine 06/26/2018 2:01 AM CDT POC GLUCOSE Routine 06/25/2018 11:59 PM CDT POC GLUCOSE Routine 06/25/2018 10:05 PM CDT POC GLUCOSE Routine 06/25/2018 9:12 PM CDT HEMOGLOBIN & HEMATOCRIT Timed 06/25/2018 8:27 PM CDT POC GLUCOSE Routine 06/25/2018 8:00 PM CDT TRANSFUSE PLATELETS Routine 06/25/2018 6:10 PM CDT POC GLUCOSE Routine 06/25/2018 5:59 PM CDT POC GLUCOSE Routine 06/25/2018 4:01 PM CDT HEMODIALYSIS Routine 06/25/2018 2:23 PM CDT HC COMPLETE BLD COUNT W/AUTO STAT 06/25/2018 1:45 PM CDT Results for this DIFF procedure are in the results section. PARTIAL THROMBOPLASTIN TIME STAT 06/25/2018 1:45 PM CDT Results for this (PTT) procedure are in the results section. PROTHROMBIN TIME WITH INR STAT 06/25/2018 1:45 PM CDT ACTIVATED CLOTTING TIME, LOW Routine 06/25/2018 1:39 PM CDT Results for this RESPONSE procedure are in the results section. POC GLUCOSE Routine 06/25/2018 1:33 PM CDT TRANSFUSE PLATELETS Routine 06/25/2018 1:20 PM CDT TRANSFUSE RED BLOOD CELLS Routine 06/25/2018 12:35 PM CDT POC GLUCOSE Routine 06/25/2018 11:35 AM CDT POC GLUCOSE Routine 06/25/2018 10:04 AM CDT POC GLUCOSE Routine 06/25/2018 8:03 AM CDT PROTHROMBIN TIME WITH INR Timed 06/25/2018 7:15 AM CDT PARTIAL THROMBOPLASTIN TIME Timed 06/25/2018 7:15 AM CDT Results for this (PTT) procedure are in the results section. HC COMPLETE BLD COUNT W/AUTO Timed 06/25/2018 7:15 AM CDT Results for this DIFF procedure are in the results section. TRANSFUSE RED BLOOD CELLS Routine 06/25/2018 7:07 AM CDT POC GLUCOSE Routine 06/25/2018 5:47 AM CDT TRANSFUSE FRESH FROZEN Routine 06/25/2018 5:21 AM CDT PLASMA POC GLUCOSE Routine 06/25/2018 5:16 AM CDT TRANSFUSE FRESH FROZEN Routine 06/25/2018 4:35 AM CDT PLASMA TRANSFUSE PLATELETS Routine 06/25/2018 3:28 AM CDT HEMOGLOBIN & HEMATOCRIT Timed 06/25/2018 2:53 AM CDT XR CHEST 1 VW PORTABLE STAT 06/25/2018 2:14 AM CDT POC GLUCOSE Routine 06/25/2018 1:49 AM CDT FIBRINOGEN STAT 06/25/2018 12:08 AM CDT IONIZED CALCIUM, ARTERIAL STAT 06/25/2018 12:08 AM CDT ESTIMATED GFR STAT 06/25/2018 12:08 AM CDT ARTERIAL BLOOD GAS STAT 06/25/2018 12:08 AM CDT PROTHROMBIN TIME WITH INR STAT 06/25/2018 12:08 AM CDT PARTIAL THROMBOPLASTIN TIME STAT 06/25/2018 12:08 AM CDT Results for this (PTT) procedure are in the results section. PHOSPHORUS LEVEL STAT 06/25/2018 12:08 AM CDT MAGNESIUM LEVEL STAT 06/25/2018 12:08 AM CDT HEPATIC FUNCTION PANEL STAT 06/25/2018 12:08 AM CDT HC COMPLETE BLD COUNT W/AUTO STAT 06/25/2018 12:08 AM CDT Results for this DIFF procedure are in the results section. BASIC METABOLIC PANEL STAT 06/25/2018 12:08 AM CDT TRANSFUSE RED BLOOD CELLS Routine 06/24/2018 11:36 PM CDT MAGNESIUM LEVEL Routine 06/24/2018 10:27 PM CDT IONIZED CALCIUM, ARTERIAL Routine 06/24/2018 10:27 PM CDT GLUCOSE LEVEL, SYRINGE Routine 06/24/2018 10:27 PM CDT HEMOGLOBIN, SYRINGE Routine 06/24/2018 10:27 PM CDT POTASSIUM, SYRINGE Routine 06/24/2018 10:27 PM CDT SODIUM LEVEL, SYRINGE Routine 06/24/2018 10:27 PM CDT ARTERIAL BLOOD GAS, Routine 06/24/2018 10:27 PM CDT Results for this CORRECTED procedure are in the results section. MN AN ELECTIVE ENDOTRACHEAL Routine 06/24/2018 10:24 PM CDT AIRWAY Procedure Note - Yamil Hurd MD - 06/24/2018 10:24 PM CDT Airway Date/Time: 06/24/2018 10:24 PM Performed by: Yamil Hurd MD Authorized by: Yamil Hurd MD Location: OR Urgency: Elective Difficult Airway: No Anesthesiologist: Yamil Hurd MD Resident/CAD OPERATOR/AA: Millie Baker CRNA Performed by: resident/CAD OPERATOR/AA Preoxygenated with 100% O2: Yes C-spine Precautions Maintained Throughout: Yes Mask Ventilation: Not attempted Final Airway Type: Endotracheal airway Final Endotracheal Airway: ETT Cuffed: Yes Technique Used: Video laryngoscopy Devices/Methods Used in Placement: Intubating stylet Insertion Site: Oral Blade Type: Konstantin Laryngoscope Blade/Videolaryngoscope Blade Size: 3 ETT Size (mm): 7.0 Cuff at minimum occlusion pressure: Yes Measured from: Gums ETT to Gums (cm): 21 Placement Verified by: CO2 detection, equal breath sounds and fiber optic visualization Laryngoscopic view: Grade I - full view of glottis Rapid Sequence Induction (RSI): Yes Modified RSI: No Number of Attempts at Approach: 1 No gastric contense visualized in the oropharyngeal area. ARTERIAL LINE Routine 06/24/2018 10:21 PM CDT Procedure Note - Yamil Hurd MD - 06/24/2018 10:21 PM CDT Arterial line Performed by: Yamil Hurd MD Authorized by: Yamil Hurd MD Patient Location: OR Start Time: 06/24/2018 10:10 PM End Time: 06/24/2018 10:19 PM Staff: Anesthesiologist: Yamil Hurd MD Resident/CAD OPERATOR/AA: Millie Baker CRNA Performed by: Anesthesiologist Pre-procedure: patient identified, IV checked, site and side verified, risks and benefits discussed, procedure verified, surgical consent complete, patient position confirmed, monitors and equipment checked and pre-op evaluation complete MSBT: antiseptic used, all elements of maximal sterile barrier technique followed, hand hygiene performed, cap/gown used by other personnel and solutions labeled TIme Out Performed: 06/24/2018 10:10 PM Indications: Indications: multiple ABGs and hemodynamic monitoring Anesthesia: Anesthesia: Local infiltration Procedure Details: Arterial Line placement: Placed pre-induction Line placement site: Radial Line placement side: Right Arterial line gauge: 20 G Number of attempts: 1 Ultrasound guidance used: Yes Post-procedure: Post-procedure: Sterile dressing applied Post procedure circulation, sensation, movement: Unchanged and normal Patient tolerance: Patient tolerated the procedure well with no immediate complications POC GLUCOSE Routine 06/24/2018 8:33 PM CDT PROTHROMBIN TIME WITH INR Routine 06/24/2018 7:45 PM CDT POC GLUCOSE Routine 06/24/2018 5:36 PM CDT POC GLUCOSE Routine 06/24/2018 4:56 PM CDT POC GLUCOSE Routine 06/24/2018 11:24 AM CDT POC GLUCOSE Routine 06/24/2018 7:48 AM CDT POC GLUCOSE Routine 06/24/2018 5:51 AM CDT POC GLUCOSE Routine 06/24/2018 5:32 AM CDT POC GLUCOSE Routine 06/24/2018 5:11 AM CDT ESTIMATED GFR Routine 06/24/2018 5:00 AM CDT HC COMPLETE BLD COUNT Routine 06/24/2018 5:00 AM CDT Results for this W/AUTO DIFF procedure are in the results section. BASIC METABOLIC PANEL Routine 06/24/2018 5:00 AM CDT POC GLUCOSE Routine 06/24/2018 4:50 AM CDT POC GLUCOSE Routine 06/23/2018 8:57 PM CDT POC GLUCOSE Routine 06/23/2018 4:36 PM CDT POC GLUCOSE Routine 06/23/2018 1:34 PM CDT HEPATITIS B SURFACE ANTIGEN Routine 06/23/2018 9:07 AM CDT POC GLUCOSE Routine 06/23/2018 7:53 AM CDT ESTIMATED GFR Routine 06/23/2018 5:37 AM CDT HC COMPLETE BLD COUNT Routine 06/23/2018 5:37 AM CDT Results for this W/AUTO DIFF procedure are in the results section. BASIC METABOLIC PANEL Routine 06/23/2018 5:37 AM CDT POC GLUCOSE Routine 06/22/2018 10:20 PM CDT HEMODIALYSIS Routine 06/22/2018 8:27 PM CDT ECG 12-LEAD STAT 06/22/2018 5:03 PM CDT POC GLUCOSE Routine 06/22/2018 4:52 PM CDT OR FL < 1 HOUR Routine 06/22/2018 4:30 PM CDT POC GLUCOSE Routine 06/22/2018 3:36 PM CDT SURGICAL PATHOLOGY REQUEST Routine 06/22/2018 3:32 PM CDT MN AN PERIPHERAL BLOCK Routine 06/22/2018 12:39 PM CDT POST-OP PAIN Procedure Note - Eve Perez CRNA - 06/22/2018 12:39 PM CDT Peripheral Block Date/Time: 06/22/2018 11:45 AM Performed by: Marlys Hallman MD Authorized by: Marlys Hallman MD Patient Location: Pre-op Start Time: 06/22/2018 11:30 AM End Time: 06/22/2018 11:45 AM Reason for Block: at surgeon's request, post-op pain management, primary anesthetic Staff: Anesthesiologist: Marlys Hallman MD Resident/CAD OPERATOR/AA: Eve Perez CRNA Other Staff: Yamil Hurd MD Performed by: Anesthesiologist Preprocedure: patient identified, IV checked, site and side verified, risks and benefits discussed, procedure verified, surgical consent complete, patient position confirmed, monitors and equipment checked, pre-op evaluation complete, site marked and coagulation status reviewed Peripheral Nerve Block: Patient Position: Sitting Prep: ChloraPrep Monitoring: Blood pressure monitoring, continuous pulse oximetry and heart rate Block Type: Supraclavicular Laterality: Left Injection Technique: Single injection Procedures: ultrasound guided and nerve stimulator Ultrasound documentation: Printed/placed in chart Local Infiltration (See MAR for details): Lidocaine Loss of Twitch: 0.5 mA Needle: Needle Type: Pajunk Needle Gauge: 22 G Needle Length: 10 cm Assessment: Injection Assessment: Visualized needle/local anesthetic surrounding nerve , needle tip visualized at all times during injection of medication, intermittent aspiration during local anesthetic administration, no symptoms of intraneural/intravenous injection and visualized pertinent vascular structures and nerves Paresthesia Pain: None Heart Rate Change: No Slow Fractionated Injection: Yes Block outcome: No apparent complications and patient comfortable Notes: Solution injected - 15 cc of 0.5% ropivacaine and 5 ccs of 2 % lidocaine Medications Administered Ropivacaine 0.5 % PF (mL), 15 mL POC GLUCOSE Routine 06/22/2018 8:14 AM Results for this CDT procedure are in the results section. PREPARE PLATELET PHERESIS STAT 06/22/2018 6:40 AM Results for this CDT procedure are in the results section. PREPARE PLATELET PHERESIS STAT 06/22/2018 6:40 AM Results for this CDT procedure are in the results section. PREPARE RBC STAT 06/22/2018 6:40 AM Results for this CDT procedure are in the results section. PREPARE PLATELET PHERESIS STAT 06/22/2018 6:40 AM Results for this CDT procedure are in the results section. PREPARE FRESH FROZEN STAT 06/22/2018 6:40 AM Results for this PLASMA CDT procedure are in the results section. PREPARE RBC STAT 06/22/2018 6:40 AM Results for this CDT procedure are in the results section. TYPE AND SCREEN STAT 06/22/2018 6:40 AM Results for this CDT procedure are in the results section. ESTIMATED GFR Routine 06/22/2018 6:40 AM Results for this CDT procedure are in the results section. FOLATE LEVEL Routine 06/22/2018 6:40 AM Results for this CDT procedure are in the results section. VITAMIN B12 LEVEL Routine 06/22/2018 6:40 AM Results for this CDT procedure are in the results section. FERRITIN LEVEL Routine 06/22/2018 6:40 AM Results for this CDT procedure are in the results section. TOTAL IRON BINDING Routine 06/22/2018 6:40 AM Results for this CAPACITY CDT procedure are in the results section. PHOSPHORUS LEVEL Routine 06/22/2018 6:40 AM Results for this CDT procedure are in the results section. PROTHROMBIN TIME WITH INR Routine 06/22/2018 6:40 AM Results for this CDT procedure are in the results section. HC COMPLETE BLD COUNT Routine 06/22/2018 6:40 AM Results for this W/AUTO DIFF CDT procedure are in the results section. BASIC METABOLIC PANEL Routine 06/22/2018 6:40 AM Results for this CDT procedure are in the results section. XR CHEST 2 VW Routine 06/21/2018 6:50 PM Results for this CDT procedure are in the results section. XR ABDOMEN 1 VW Routine 06/21/2018 3:57 PM Results for this CDT procedure are in the results section. ESTIMATED GFR Routine 06/21/2018 3:45 PM Results for this CDT procedure are in the results section. AMYLASE LEVEL Routine 06/21/2018 3:45 PM Results for this CDT procedure are in the results section. B NATRIURETIC PEPTIDE Routine 06/21/2018 3:45 PM Results for this CDT procedure are in the results section. CREATINE KINASE, TOTAL Routine 06/21/2018 3:45 PM Results for this (CPK) CDT procedure are in the results section. COMPREHENSIVE METABOLIC Routine 06/21/2018 3:45 PM Results for this PANEL CDT procedure are in the results section. HEMOGLOBIN A1C Routine 06/21/2018 3:45 PM Results for this CDT procedure are in the results section. LACTIC ACID LEVEL Routine 06/21/2018 3:45 PM Results for this CDT procedure are in the results section. LIPASE LEVEL Routine 06/21/2018 3:45 PM Results for this CDT procedure are in the results section. LIPID PANEL Routine 06/21/2018 3:45 PM Results for this CDT procedure are in the results section. MAGNESIUM LEVEL Routine 06/21/2018 3:45 PM Results for this CDT procedure are in the results section. PHOSPHORUS LEVEL Routine 06/21/2018 3:45 PM Results for this CDT procedure are in the results section. PREALBUMIN LEVEL Routine 06/21/2018 3:45 PM Results for this CDT procedure are in the results section. THYROID STIMULATING Routine 06/21/2018 3:45 PM Results for this HORMONE CDT procedure are in the results section. URIC ACID LEVEL Routine 06/21/2018 3:45 PM Results for this CDT procedure are in the results section. T4, FREE Routine 06/21/2018 3:45 PM Results for this CDT procedure are in the results section. PARTIAL THROMBOPLASTIN Routine 06/21/2018 3:45 PM Results for this TIME (PTT) CDT procedure are in the results section. PROTHROMBIN TIME WITH INR Routine 06/21/2018 3:45 PM Results for this CDT procedure are in the results section. HC COMPLETE BLD COUNT Routine 06/21/2018 3:45 PM Results for this W/AUTO DIFF CDT procedure are in the results section. POC GLUCOSE Routine 06/21/2018 2:44 PM Results for this CDT procedure are in the results section. CT ANGIOGRAM ABDOMEN Routine 11/15/2017 2:41 PM ESRD (end Results for this PELVIS W AND OR WO CDT stage renal procedure are in CONTRAST disease) the results section. MAMMO DIAGNOSTIC W CAD Routine 11/15/2017 1:36 PM ESRD (end Results for this BILATERAL CDT stage renal procedure are in disease) the results section. LOW RESOLUTION FULL Routine 11/15/2017 7:18 AM Results for this TYPING BY SSO CDT procedure are in the results section. HLA AUTOLOGOUS CROSSMATCH Routine 11/15/2017 7:18 AM Results for this CDT procedure are in the results section. C1Q CLASS 1 & 2 ANTIBODY Routine 11/15/2017 7:18 AM Results for this CDT procedure are in the results section. SINGLE ANTIGEN BEADS Routine 11/15/2017 7:18 AM Results for this CDT procedure are in the results section. ZZESTIMATED GFR Routine 11/15/2017 7:18 AM Results for this CDT procedure are in the results section. ABORH - TRANSPLANT Routine 11/15/2017 7:18 AM ESRD (end Results for this CDT stage renal procedure are in disease) the results section. PARATHYROID HORMONE Routine 11/15/2017 7:18 AM ESRD (end Results for this CDT stage renal procedure are in disease) the results section. HSV TYPE 1/2 COMBINED AB, Routine 11/15/2017 7:18 AM ESRD (end Results for this IGM CDT stage renal procedure are in disease) the results section. HSV 1 & 2 GLYCOPROTEIN G Routine 11/15/2017 7:18 AM ESRD (end Results for this AB, IGG CDT stage renal procedure are in disease) the results section. HERPES SIMPLEX VIRUS BY Routine 11/15/2017 7:18 AM ESRD (end Results for this PCR CDT stage renal procedure are in disease) the results section. ENZO-MONROY VIRUS Routine 11/15/2017 7:18 AM ESRD (end Results for this ANTIBODY TEST CDT stage renal procedure are in disease) the results section. CYTOMEGALOVIRUS AB, IGM Routine 11/15/2017 7:18 AM ESRD (end Results for this CDT stage renal procedure are in disease) the results section. CYTOMEGALOVIRUS AB, IGG Routine 11/15/2017 7:18 AM ESRD (end Results for this CDT stage renal procedure are in disease) the results section. HEMOGLOBIN A1C Routine 11/15/2017 7:18 AM ESRD (end Results for this CDT stage renal procedure are in disease) the results section. LDH Routine 11/15/2017 7:18 AM ESRD (end Results for this CDT stage renal procedure are in disease) the results section. PHOSPHORUS LEVEL Routine 11/15/2017 7:18 AM ESRD (end Results for this CDT stage renal procedure are in disease) the results section. CREATININE LEVEL Routine 11/15/2017 7:18 AM ESRD (end Results for this CDT stage renal procedure are in disease) the results section. FASTING GLUCOSE LEVEL Routine 11/15/2017 7:18 AM ESRD (end Results for this CDT stage renal procedure are in disease) the results section. TRIGLYCERIDES Routine 11/15/2017 7:18 AM ESRD (end Results for this CDT stage renal procedure are in disease) the results section. CHOLESTEROL Routine 11/15/2017 7:18 AM ESRD (end Results for this CDT stage renal procedure are in disease) the results section. OCCULT BLOOD, STOOL Routine 11/14/2017 8:00 AM Results for this CDT procedure are in the results section. OCCULT BLOOD, STOOL Routine 11/13/2017 8:00 AM Results for this CDT procedure are in the results section. OCCULT BLOOD, STOOL Routine 11/12/2017 8:00 AM Results for this CDT procedure are in the results section. after 10/08/2017 Results POC glucose (07/22/2018 8:22 AM CDT)Only the most recent of91 resultswithin the time period is included. POC glucose 94 65 - 99 mg/dL SANDOR LEWIS Comment: [facility] Meter ID: [id number] Creeler: Iron Butler Specimen Performing Organization Address City/State/Zipcode Phone Number [facility] DEPARTMENT OF PATHOLOGY [address] [facility] [place] [address] Estimated GFR (07/22/2018 5:30 AM CDT)Only the most recent of18 resultswithin the time period is included. Pathologist [facility] Estimated GFR 12 (A) mL/min/1.73 [facility] Comment: m2 [place] CatergoryUnitsInterpretation HOSPITAL G1 >=90 Normal or high G2 60-89Mildly decreased [id number] to moderately decreased [id number] to severely decreased G4 15-29Severely decreased G5 <15Kidney failure The eGFR was calculated using the Chronic Kidney Disease Epidemiology Collaboration (CKD-EPI) equation. Interpretation is based on recommendations of the National Kidney Foundation-Kidney Disease Outcomes Quality Initiative (NKF-KDOQI) published in 2014. Specimen Plasma specimen Performing Organization Address City/State/Zipcode Phone Number [facility] DEPARTMENT OF PATHOLOGY [address] [place] [address] [facility] [id number] [place] [address] CBC with platelet and differential (07/22/2018 5:30 AM CDT)Only the most recent of17 resultswithin the time period is included. Pathologist [facility] WBC 3.2 (L) 4.5 - 11.0 k/uL [facility] RBC 3.01 (L) 4.20 - 5.50 [facility] m/uL [facility] HGB 9.1 (L) 12.0 - 16.0 [facility] g/dL [facility] HCT 29.2 (L) 37.0 - 47.0 % [facility] MCV 97.0 82.0 - 100.0 fL [facility] MCH 30.2 27.0 - 34.0 pg [facility] MCHC 31.2 31.0 - 37.0 [facility] g/dL [facility] RDW - SD 67.0 (H) 37.0 - 55.0 fL [facility] MPV 11.0 6.9 - 11.0 fL [facility] Platelet count 150 150 - 400 K/uL [facility] Nucleated RBC 0.00 /100 WBC [facility] Neutrophils 42.6 39.0 - 69.0 % [facility] Lymphocytes 27.5 25.0 - 45.0 % [facility] Monocytes 15.4 (H) 0.0 - 10.0 % [facility] Eosinophils 12.7 (H) 0.0 - 5.0 % [facility] Basophils 1.5 (H) 0.0 - 1.0 % [facility] Immature granulocytes 0.3 0.0 - 1.0 % [facility] Specimen Blood Performing Organization Address City/State/Zipcode Phone Number [facility] DEPARTMENT OF PATHOLOGY [id number] [place] [address] Basic metabolic panel (07/22/2018 5:30 AM CDT)Only the most recent of16 resultswithin the time period is included. Sodium 139 135 - 148 mEq/L [facility] Potassium 4.3 3.5 - 5.0 mEq/L [facility] Chloride 102 98 - 112 mEq/L [facility] CO2 25 24 - 31 mEq/L [facility] Anion gap 12@ANIO 7 - 15 mEq/L [facility] BUN 20 8 - 23 mg/dL [facility] Creatinine 3.89 (H) 0.50 - 0.90 mg/dL [facility] Glucose 100 (H) 65 - 99 mg/dL [facility] Calcium 8.9 8.8 - 10.2 mg/dL [facility] Specimen Plasma specimen Performing Organization Address City/State/Zipcode Phone Number [facility] DEPARTMENT OF PATHOLOGY [id number] [place] [address] POC panel 4 (07/20/2018 9:05 AM CDT) POC sodium 138 135 - 148 [facility] mmol/L [facility] POC potassium 5.0 3.5 - 5.0 [facility] P[facility] hematocrit 36 (L) 37 - 47 % [facility] POC glucose 118 (H) 65 - 99 mg/dL [facility] POC hemoglobin 12.2 12.0 - 16.0 [facility] Comment: g/dL [place] Meter ID: [id number] HOSPITAL Creeler: Jim Ling Specimen Blood Performing Organization Address City/[facility]/Zipcode Phone Number [facility] DEPARTMENT OF PATHOLOGY [address] [place] [address] Partial thromboplastin time, activated (07/20/2018 8:59 AM CDT)Only the most recent of7 resultswithin the time period is included. PTT 46.2 (H) 23.0 - 36.0 [facility] Comment: [facility] PTT therapeutic range for unfractionated heparin is HOSPITAL 61.0-112.0 seconds which corresponds to Anti-Xa 0.3-0.7 U/ml. Specimen Blood Performing Organization Address [facility] Phone Number [facility] DEPARTMENT OF PATHOLOGY [address] [place] [address] Prothrombin time with INR (07/20/2018 8:59 AM CDT)Only the most recent of11 resultswithin the time period is included. Prothrombin time 13.0 11.5 - 14.5 [facility] INR 1.0 [place] Comment: [facility] International Normalized Ratio (INR) is a [facility] monitoring tool for patients who are stable on oral anticoagulant therapy. An INR of 2.0-3.0 is suggested for deep vein thrombosis/pulmonary embolism. Specimen Blood Performing Organization Address [facility] Phone Number [facility] DEPARTMENT OF PATHOLOGY [address] [place] [address] Fibrinogen (07/20/2018 8:59 AM CDT)Only the most recent of3 resultswithin the time period is included. Fibrinogen 466 (H) 200 - 450 mg/dL [facility] Specimen Blood Performing Organization Address City/State/Zipcode Phone Number [facility] DEPARTMENT OF PATHOLOGY [address] [place] [address] [facility] [address] [place] [address] HOSPITAL Type and screen (07/20/2018 8:59 AM CDT)Only the most recent of3 resultswithin the time period is included. ABO grouping O [facility] Rh type POS [facility] Antibody screen (gel) NEG [facility] Specimen Blood Performing Organization Address [facility] Phone Number [facility] DEPARTMENT OF PATHOLOGY [address] [place] [address] [facility] [address] [place] [address] HOSPITAL NM Gastric Emptying (07/04/2018 12:36 PM CDT) Specimen Narrative Performed At PROCEDURE:NM [facility]IC [facility]ING [facility] INDICATION:Feeding difficulty.Evaluate for gastroparesis. TECHNIQUE: 0.5 mCi of Tc-99m sulfur colloid was mixed with an egg and cooked. The egg was fed to the patient and dynamic planar images of the abdomen were acquired for 90 minutes.Delayed images were obtained at 4 hours. FINDINGS:The gastric emptying rate is delayed.The 90 minute half-time of emptying is 219 minutes.Normal range is between 45 and 100 minutes. Delayed imaging demonstrates greater than 50% residual. IMPRESSION: 1.Moderately delayed gastric emptying rate. [id number] Procedure Note Interface, Radiology Results Incoming - 07/04/2018 12:43 PM CDT PROCEDURE: NM GASTRIC EMPTYING INDICATION: Feeding difficulty. Evaluate for gastroparesis. TECHNIQUE: 0.5 mCi of Tc-99m sulfur colloid was mixed with an egg and cooked. The egg was fed to the patient and dynamic planar images of the abdomen were acquired for 90 minutes. Delayed images were obtained at 4 hours. FINDINGS: The gastric emptying rate is delayed. The 90 minute half-time of emptying is 219 minutes. Normal range is between 45 and 100 minutes. Delayed imaging demonstrates greater than 50% residual. IMPRESSION: 1. Moderately delayed gastric emptying rate. [id number] Performing Organization Address City/[facility]/Zipcode Phone Number [facility] [address] [place] [address] Magnesium level (07/02/2018 5:40 AM CDT)Only the most recent of7 resultswithin the time period is included. Magnesium 2.3 1.6 - 2.4 mg/dL [facility] Specimen Plasma specimen Performing Organization Address City/[facility]/Zipcode Phone Number [facility] DEPARTMENT OF PATHOLOGY [id number] [place] [address] [address] Comprehensive metabolic panel (07/02/2018 5:40 AM CDT)Only the most recent of2 resultswithin the time period is included. Sodium 136 135 - 148 mEq/L [facility] Potassium 3.9 3.5 - 5.0 mEq/L [facility] Chloride 97 (L) 98 - 112 mEq/L [facility] CO2 29 24 - 31 mEq/L [facility] Anion gap 10@ANIO 7 - 15 mEq/L [facility] BUN 26 (H) 8 - 23 mg/dL [facility] Creatinine 5.57 (H) 0.50 - 0.90 [facility] mg/dL [facility] Glucose 135 (H) 65 - 99 mg/dL [facility] Calcium 8.3 (L) 8.8 - 10.2 [facility] mg/dL [facility] Protein 6.6 6.3 - 8.3 g/dL [facility] Albumin 2.9 (L) 3.5 - 5.0 g/dL [facility] A/G ratio 0.8 0.7 - 3.8 [facility] Alkaline phosphatase 192 (H) 35 - 104 U/L [facility] AST 28 10 - 35 U/L [facility] ALT <5 (A) 5 - 50 U/L [facility] Total bilirubin 0.6 0.2 - 1.2 mg/dL [facility] Specimen Plasma specimen Performing Organization Address City/[facility] Phone Number [facility] DEPARTMENT OF PATHOLOGY [address] [place] [address] AND [facility] [address] XR Chest 1 Vw Portable (07/02/2018 5:03 AM CDT)Only the most recent of2 resultswithin the time period is included. Specimen Narrative Performed At EXAMINATION:XR CHEST 1 VW PORTABLE [facility] CLINICAL HISTORY:pneumonia COMPARISON:06/25/2018 IMPRESSION: Support line(s), tube(s) and/or hardware unchanged. Cardiac silhouette mildly enlarged similar to prior. Pulmonary vasculature within normal limits. Fractured sternotomy wires as before. No lobar consolidation or pleural effusion identified on the frontal view(s). Minimal left basilar atelectasis. No detrimental change. [id number] Procedure Note Hm Interface, Radiology Results Incoming - 07/02/2018 6:36 AM CDT EXAMINATION: XR CHEST 1 VW PORTABLE CLINICAL HISTORY: pneumonia COMPARISON: 06/25/2018 IMPRESSION: Support line(s), tube(s) and/or hardware unchanged. Cardiac silhouette mildly enlarged similar to prior. Pulmonary vasculature within normal limits. Fractured sternotomy wires as before. No lobar consolidation or pleural effusion identified on the frontal view(s). Minimal left basilar atelectasis. No detrimental change. [id number] Performing Organization Address City/State/Zipcode Phone Number [facility] [address] [place] [address] Lipase level (07/01/2018 4:25 PM CDT)Only the most recent of2 resultswithin the time period is included. Lipase 23 13 - 60 U/L [facility] Specimen Plasma specimen Performing Organization Address City/[facility]/Zipcode Phone Number [facility] DEPARTMENT OF PATHOLOGY [address] [place] [address] AND [facility] [address] Hepatic function panel (07/01/2018 4:25 PM CDT)Only the most recent of2 resultswithin the time period is included. Albumin 2.9 (L) 3.5 - 5.0 g/dL [facility] Total bilirubin 0.5 0.2 - 1.2 mg/dL [facility] Bilirubin direct 0.3 0.0 - 0.3 mg/dL [facility] Alkaline phosphatase 191 (H) 35 - 104 U/L [facility] Protein 6.6 6.3 - 8.3 g/dL [facility] ALT <5 (A) 5 - 50 U/L [facility] AST 33 10 - 35 U/L [facility] Specimen Plasma specimen Performing Organization Address City/[facility] Phone Number [facility] DEPARTMENT OF PATHOLOGY [address] [place] [address] [place] [address] [facility]PITAL Manual differential (07/01/2018 6:15 AM CDT) Manual differential PERFORMED [facility] Neutrophils 72.0 (H) 39.0 - 69.0 % [facility] Lymphocytes 12.0 (L) 25.0 - 45.0 % [facility] Monocytes 12.0 (H) 0.0 - 10.0 % [facility] Eosinophils 3.0 0.0 - 5.0 % [facility] Basophils 0.0 0.0 - 1.0 % [facility] Promyelocytes 1 % [facility] Platelet slide review Angie slt decr (A) [facility] Anisocytosis Moderate [facility] Schistocytes Occasional [facility] Spherocytes Occasional [facility] Ovalocytes Moderate [facility] Acanthocytes Occasional [facility] Specimen Performing Organization Address [facility] Phone Number [facility] DEPARTMENT OF PATHOLOGY [address] [place] [address] [place] [address] HOSPITAL Echocardiogram complete w contrast and 3D if needed (06/30/2018 2:30 PM CDT) Ao Root Diameter 2.50 cm [facility] AoV Area, Vmax 1.44 cm2 [facility] AoV Area, VTI 1.39 cm2 [facility] AoV Mean PG 7.57 mmHg [facility] AoV Peak PG 13.77 mmHg [facility] AoV Vmax 1.86 m/s [facility] AoV VTI 0.45 m [facility] IVS,d 1.18 cm [facility] IVS/LVPW,2D 1.14 [facility] Left Atrium Dimension Anterior 4.97 cm [facility] LA Area d A4C 15.14 cm2 [facility] LV,d 4.88 cm [facility] LV EF,2D 74.86 % [facility] LV,s 3.08 cm [facility] LVOT area 2.01 cm2 [facility] LVOT Diam,S 1.60 cm [facility] LVOT Vmax 1.33 m/s [facility] LVOT VTI 0.31 m [facility] LVPWD,d 1.03 cm [facility] PV Pk Grad 6.04 mmHg [facility] PV VMAX 1.23 m/s [facility] RVOT Vmax 0.87 m/s [facility] TR Vpeak 3.53 mm/s [facility] MV E A ratio 2.18 [facility] TR pk grad 41.86 mmHg [facility] E wave decelartion time 181.48 msec [facility] MV Peak A Sandro 0.57 m/s [facility] MV valve area p 1/2 method 4.18 cm2 [facility] MV Peak E Sandro 1.25 m/s [facility] MV stenosis pressure 1/2 time 52.63 ms [facility] AV LVOT peak gradient 7.11 mmHg [facility] Ascending aorta 2.88 cm [facility] Ao Root Diameter 2.50 cm [facility] MV mean gradient 2.11 mmHg [facility] LV SYS VOL 37.37 ml [facility] LV GRAFF VOL 111.88 ml [facility] LV SV Teich 2D 74.51 ml [facility] LV Vol s Teich PSAX 37.37 ml [facility] MR peak grad 8.50 mmHg [facility] MV Vmax 1.46 m [facility] MV VTI Tips 0.30 m [facility] RVOT pk grad 3.05 mmHg [facility] AoV Vmn 1.29 [facility] LV FS Teich 2D 36.89 [facility] MV AE ratio 0.46 [facility] LV FS Cube 2D 36.89 [facility] LVOT Vmn 0.91 [facility] Aov area Vmn 1.41 cm2 [facility] LA Vol d MOD A4C 39.77 ml [facility] LVOT mean grad 3.82 mmHg [facility] MAX Pred HR 159.18 [facility] 85 of MPHR 135.30 [facility] Calc MPHR 159.18 bpm [facility] LV SV Cube 2D 87.13 ml [facility] LV vol d cube 2D 116.39 ml [facility] LV vol s cube 2D 29.26 ml [facility] MV Decel slope 6.88 m/s2 [facility] Pred Exer Dur R1 7.82 [facility] Pred METS R1 6.79 [facility] Velocity Ratio (V1/V2) 0.72 m/s [facility] EF 66.60 % [facility] E/A ratio 2.19 [facility] Specimen Narrative Performed At Left Ventricular ejection fraction is 60 - 65%. [facility] There is mild left ventricular asymmetric hypertrophy Stage Ia diastolic dysfunction, impaired relaxation with increased filling pressure The aortic valve appears trileaflet and mildly calcified. Mild aortic valve stenosis Mild mitral valve regurgitation Mild tricuspid valve regurgitation Trace pulmonary valve regurgitation. The right ventricle size is moderately enlarged. Global RV systolic function is mildly reduced Performing Organization Address [facility] Phone Number [facility] [address] [place] [address] Transfuse RBC (06/28/2018 11:48 AM CDT)Only the most recent of13 resultswithin the time period is included.Phosphorus level (06/27/2018 2:30 AM CDT)Only the most recent of6 resultswithin the time period is included. Phosphorus 3.6 2.4 - 4.5 mg/dL [facility] Specimen Plasma specimen Performing Organization Address [facility] Phone Number [facility] DEPARTMENT OF PATHOLOGY [address] [place] [address] Ionized calcium (06/27/2018 2:30 AM CDT)Only the most recent of2 resultswithin the time period is included. pH 7.38 [facility] Ionized calcium 1.06 (L) 1.11 - 1.32 [facility] mmol/L [facility] Specimen Plasma specimen Performing Organization Address [facility] Phone Number [facility] DEPARTMENT OF PATHOLOGY [address] [place] [address] Hemoglobin & hematocrit (06/26/2018 12:00 PM CDT)Only the most recent of3 resultswithin the time period is included. HGB 9.4 (L) 12.0 - 16.0 g/dL [facility] HCT 27.3 (L) 37.0 - 47.0 % [facility] Specimen Blood Performing Organization Address City/[facility]/Zipcode Phone Number [facility] DEPARTMENT OF PATHOLOGY [address] [place] [address] Hepatitis B surface antibody (06/26/2018 9:09 AM CDT) Hepatitis B surface Reactive (A) Non-reactive [facility] Specimen Blood Performing Organization Address [facility] Phone Number [facility] DEPARTMENT OF PATHOLOGY AND [address] [place] [address] [place] [address] Prepare RBC, 2 Units (06/26/2018 5:35 AM CDT)Only the most recent of5 resultswithin the time period is included. Product name Red Cells AS1 [facility] Leukored [facility] Unit number [id number] [facility] Product code [id number] [facility] Dispense status Transfused [facility] Blood expiration [id number] [facility] Blood type code 5100 [facility] Blood type O POSITIVE [facility] Product name Red Cells AS1 [facility] Leukored [facility] Unit number [id number] [facility] Product code [id number] [facility] Dispense status Transfused [facility] Blood expiration [id number] [facility] Blood type code 5100 [facility] Blood type O POSITIVE [facility] Specimen Blood Performing Organization Address [facility] Phone Number [facility] DEPARTMENT OF PATHOLOGY [address] [place] [address] [place] [address] HOSPITAL Transfuse platelets (06/25/2018 6:10 PM CDT)Only the most recent of6 resultswithin the time period is included.Activated clotting time, low response (06/25/2018 1:39 PM CDT) Activated clotting 148 89 - 169 sec [facility] time, low response Comment: [place] Meter ID: [id number] [facility] Creeler: Fabienne MCDANIEL Specimen Performing Organization Address City/[facility]/Zipcode Phone Number [facility] DEPARTMENT OF PATHOLOGY [address] [place] [address] Transfuse fresh frozen plasma (06/25/2018 5:21 AM CDT)Only the most recent of3 resultswithin the time period is included.Ionized calcium, arterial (06/25/2018 12:08 AM CDT)Only the most recent of2 resultswithin the time period is included. Ionized calcium, 1.17 1.11 - 1.32 [facility] arterial mmol/L [facility] Specimen Blood Performing Organization Address [facility] Phone Number [facility] DEPARTMENT OF PATHOLOGY [address] [place] [address] Arterial blood gas (06/25/2018 12:08 AM CDT) pH, arterial 7.35 7.35 - 7.45 [facility] pCO2, arterial 44 35 - 45 mmHg [facility] pO2, arterial 197 (H) 80 - 90 mmHg [facility] Bicarbonate, 23.4 21.0 - 28.0 [facility] arterial mmol/L [facility] Base excess, -2 -2 - 2 mEq/L [facility] O2 saturation, 99 95 - 100 % [facility] Specimen Blood Performing Organization Address City/[facility]/Zipcode Phone Number [facility] DEPARTMENT OF PATHOLOGY [address] [place] [address] Sodium level, syringe (06/24/2018 10:27 PM CDT) Sodium, syringe 132 125 - 148 mEq/L [facility] Specimen Blood Performing Organization Address City/State/Zipcode Phone Number [facility] DEPARTMENT OF PATHOLOGY [address] [place] [address] [place] [address] HOSPITAL Potassium, syringe (06/24/2018 10:27 PM CDT) Potassium, syringe 3.7 3.5 - 5.0 mEq/L [facility] Specimen Blood Performing Organization Address City/State/Zipcode Phone Number [facility] DEPARTMENT OF PATHOLOGY [address] [place] [address] Hemoglobin, syringe (06/24/2018 10:27 PM CDT) Hemoglobin, syringe 7.8 (L) 12.0 - 16.0 g/dL [facility] Specimen Blood Performing Organization Address City/State/Zipcode Phone Number [facility] DEPARTMENT OF PATHOLOGY [address] [place] [address] Glucose level, syringe (06/24/2018 10:27 PM CDT) Glucose, syringe 59 (L) 65 - 99 mg/dL [facility] Specimen Blood Performing Organization Address City/[facility]/Zipcode Phone Number [facility] DEPARTMENT OF PATHOLOGY [address] [place] [address] Arterial blood gas, corrected (06/24/2018 10:27 PM CDT) pH, arterial 7.37 7.35 - 7.45 [facility] pCO2, arterial 50 (H) 35 - 45 mmHg [facility] pO2, arterial 318 (H) 80 - 90 mmHg [facility] Temperature, Celsius 35.0 Degrees C [facility] O2 saturation, 99 95 - 100 % [facility] pH, arterial 7.40 [facility] pCO2, arterial [address] [facility] pO2, arterial [address] [facility] Base excess, arterial 3 (H) -2 - 2 mEq/L [facility] Specimen Blood Performing Organization Address City/State/Zipcode Phone Number [facility] DEPARTMENT OF PATHOLOGY [id number] [place] [address] Hepatitis B surface antigen (06/23/2018 9:07 AM CDT) Hepatitis B surface Non-reactive Non-reactive [facility] Specimen Blood Performing Organization Address [facility] Phone Number [facility] DEPARTMENT OF PATHOLOGY [address] [place] [address] ECG 12 lead (06/22/2018 5:03 PM CDT) Ventricular rate 63 [facility] MUSE Atrial rate 63 [facility] MUSE [place] interval 146 [facility] MUSE QRSD interval 92 [facility] MUSE QT interval 426 [facility] MUSE QTC interval 435 [facility]USE P axis 1 37 [facility] MUSE QRS axis 1 13 [facility]USE T wave axis 200 [facility] MUSE EKG impression Normal sinus rhythm-RSR' or QR pattern in V1 suggests right ventricular conduction delay-Minimal voltage criteria for LVH, may be normal variant-ST & T wave abnormality, consider lateral ischemia-Abnormal ECG-In automated comparison with ECG of [facility] 08-SEP-2017 11:14,-RSR' pattern in V1 is now present- Specimen Narrative Performed At Performing Organization Address City/[facility]/Zipcode Phone Number [facility] MUSE [address] [place] [address] [place] < 1 Hour (06/22/2018 4:30 PM CDT) Specimen Narrative Performed At EXAMINATION:[place] 1 HOUR [facility] CLINICAL HISTORY:None provided IMPRESSION: Fluoroscopy was provided. No radiologist present.Please see procedure report for discussion of procedure, findings and fluoroscopic time. [facility]-[id number] Procedure Note Hm Interface, Radiology Results Incoming - 06/22/2018 6:52 PM CDT EXAMINATION: [place] 1 HOUR CLINICAL HISTORY: None provided IMPRESSION: Fluoroscopy was provided. No radiologist present. Please see procedure report for discussion of procedure, findings and fluoroscopic time. [facility]-[id number] Performing Organization Address City/State/Zipcode Phone Number [facility] [address] [place] [address] Surgical pathology request (06/22/2018 3:32 PM CDT) [facility] DEPARTMENT OF PATHOLOGY AND GENOMIC MEDICINE Surgical pathology See link below [facility] DEPARTMENT OF report for PDF Lab PATHOLOGY AND Report GENOMIC MEDICINE Result status This is Final [facility] DEPARTMENT OF Report for PATHOLOGY AND [id number] GENOMIC MEDICINE Specimen Performing Organization Address City/[facility] Phone Number [facility] DEPARTMENT OF PATHOLOGY [address] [place] [address] AND GENOMIC [facility] Total iron binding capacity (06/22/2018 6:40 AM CDT) Iron level 58 37 - 145 ug/dL [facility] Iron binding capacity 229 (L) 260 - 460 ug/dL [facility] % Saturation 25.3 15.0 - 38.0 % [facility] Specimen Plasma specimen Performing Organization Address [facility] Phone Number [facility] DEPARTMENT OF PATHOLOGY [address] [place] [address] AND GENOMIC MEDICINE [facility] [id number] [place] [address] HOSPITAL Prepare platelet pheresis, 1 Units (06/22/2018 6:40 AM CDT)Only the most recent of3 resultswithin the time period is included. Product name Apheresis PLT, [facility] Leukored IRR #2 [facility] Unit number [id number] [facility] Product code [id number] [facility] Dispense status Transfused [facility] Blood expiration [id number] [facility] Blood type code 7300 [facility] Blood type B POSITIVE [facility] Specimen Blood Performing Organization Address City/State/Zipcode Phone Number [facility] DEPARTMENT OF PATHOLOGY [address] [place] [address] [facility] [id number] [place] [address] Prepare fresh frozen plasma, 2 Units (06/22/2018 6:40 AM CDT) Product name Thawed Plasma [facility] Unit number [id number] [facility] Product code [id number] [facility] Dispense status Transfused [facility] Blood expiration date [facility] Blood type code 5100 [facility] Blood type O POSITIVE [facility] Product name Thawed Plasma [facility] Unit number [id number] [facility] Product code [id number] [facility] Dispense status Transfused [facility] Blood expiration date [facility] Blood type code 5100 [facility] Blood type O POSITIVE [facility] Specimen Blood Performing Organization Address City/State/Zipcode Phone Number [facility] DEPARTMENT OF PATHOLOGY [id number] [place] [address] [facility] [id number] [place] [address] HOSPITAL Folate level (06/22/2018 6:40 AM CDT) Folate 14.8 4.8 - 24.2 ng/mL [facility] Specimen Serum Performing Organization Address City/State/Zipcode Phone Number [facility] DEPARTMENT OF PATHOLOGY AND [address] [place] [address] Ferritin level (06/22/2018 6:40 AM CDT) Ferritin level 1,948 (H) 13 - 150 ng/mL [facility] Specimen Plasma specimen Performing Organization Address City/[facility]/Zipcode Phone Number [facility] DEPARTMENT OF PATHOLOGY AND [address] [place] [address] [address] Vitamin B12 level (06/22/2018 6:40 AM CDT) Vitamin B12 >1600 (H) 068 - 858 [facility] Comment: pg/mL HOSPITAL Significant overlap exists between normal and deficiency states. However, most patients with deficiencies will have Serum B12 <200 pg/mL. Specimen Serum Performing Organization Address City/[facility]/Zipcode Phone Number [facility] DEPARTMENT OF PATHOLOGY AND [address] [place] [address] GENOMIC MEDICINE [facility] [address] [place] [address] XR Chest 2 Vw (06/21/2018 6:50 PM CDT) Specimen Narrative Performed At [facility] Clinical history:Pneumonia Technique: PA and lateral views chest. Comparison: September 08, 2017 DISCUSSION: The lungs are clear and symmetrically inflated. No pleural effusions. Cardiomegaly. Sternotomy. Dual-lead pacemaker; leads intact. Pulmonary vasculature is normal.The skeleton is grossly intact. IMPRESSION: Cardiomegaly without evidence of pneumonia. Procedure Note Interface, Radiology Results Incoming - 06/21/2018 6:55 PM CDT TWO VIEW CHEST, 06/21/2018 Clinical history: Pneumonia Technique: PA and lateral views chest. Comparison: September 08, 2017 DISCUSSION: The lungs are clear and symmetrically inflated. No pleural effusions. Cardiomegaly. Sternotomy. Dual-lead pacemaker; leads intact. Pulmonary vasculature is normal. The skeleton is grossly intact. IMPRESSION: Cardiomegaly without evidence of pneumonia. Performing Organization Address [facility] Phone Number [facility] [address] [place] [address] XR Abdomen 1 Vw (06/21/2018 3:57 PM CDT) Specimen Narrative Performed At EXAMINATION: XR ABDOMEN 1 VW [facility] INDICATION: Nauseavomiting COMPARISON: None IMPRESSION: Nonobstructive bowel gas pattern. Scattered vascular calcifications. Scattered degenerative osseous changes. [id number] Procedure Note Interface, Radiology Results Incoming - 06/21/2018 4:12 PM CDT EXAMINATION: XR ABDOMEN 1 VW INDICATION: Nausea vomiting COMPARISON: None IMPRESSION: Nonobstructive bowel gas pattern. Scattered vascular calcifications. Scattered degenerative osseous changes. [id number] Performing Organization Address City/[facility]/Zipcode Phone Number [facility] [address] [place] [address] Uric acid level (06/21/2018 3:45 PM CDT) Uric acid 2.3 (L) 2.4 - 5.7 mg/dL [facility] Specimen Blood Performing Organization Address City/State/Zipcode Phone Number [facility] DEPARTMENT OF PATHOLOGY [address] [place] [address] Thyroid stimulating hormone (06/21/2018 3:45 PM CDT) TSH 2.15 0.27 - 4.20 uIU/mL [facility] Specimen Blood Performing Organization Address City/State/Zipcode Phone Number [facility] DEPARTMENT OF PATHOLOGY [address] [place] [address] T4, free (06/21/2018 3:45 PM CDT) T4, free 1.2 0.9 - 1.7 ng/dL [facility] Specimen Blood Performing Organization Address City/[facility]/Zipcode Phone Number [facility] DEPARTMENT OF PATHOLOGY [address] [place] [address] [place] [address] HOSPITAL Prealbumin level (06/21/2018 3:45 PM CDT) Prealbumin 19 16 - 32 mg/dL [facility] Specimen Serum Performing Organization Address City/[facility]/Zipcode Phone Number [facility] DEPARTMENT OF PATHOLOGY AND [address] [place] [address] [address] B natriuretic peptide (06/21/2018 3:45 PM CDT) BNP 1,439 (H) 0 - 100 pg/mL [facility] Specimen Blood Performing Organization Address City/[facility]/Zipcode Phone Number [facility] DEPARTMENT OF PATHOLOGY [address] [place] [address] [place] [address] HOSPITAL Lactic acid level (06/21/2018 3:45 PM CDT) Lactic acid 1.1 0.5 - 2.2 mmol/L [facility] Specimen Plasma specimen Performing Organization Address City/State/Zipcode Phone Number [facility] DEPARTMENT OF PATHOLOGY [address] [place] [address] [place] [address] HOSPITAL Hemoglobin A1c (06/21/2018 3:45 PM CDT)Only the most recent of2 resultswithin the time period is included. Hemoglobin A1C 7.2 (H) 4.0 - 5.6 % [facility] Comment: [place] HbA1c cutoffs for diagnosing diabetes: HOSPITAL 4.0% - 5.6%=normal 5.7% - 6.4%=increased risk for diabetes (prediabetes) >=6.5%=diabetes Goals for glycemic control (ADA 2016) < 7.0%Target for non adults with diabetes. More or less stringent targets may be appropriate for individual patients. <7.5% Target for Children and adolescents with type 1 diabetes. Specimen Blood Performing Organization Address City/State/Zipcode Phone Number [facility] DEPARTMENT OF PATHOLOGY [address] [place] [address] [place] [address] HOSPITAL Creatine kinase, total (CPK) (06/21/2018 3:45 PM CDT) Creatine kinase 115 26 - 192 U/L [facility] Specimen Blood Performing Organization Address City/[facility]/Zipcode Phone Number [facility] DEPARTMENT OF PATHOLOGY [address] [place] [address] [place] [address] HOSPITAL Amylase level (06/21/2018 3:45 PM CDT) Amylase 28 13 - 73 U/L [facility] Specimen Blood Performing Organization Address City/State/Zipcode Phone Number [facility] DEPARTMENT OF PATHOLOGY [address] [place] [address] [place] [address] HOSPITAL Lipid panel (06/21/2018 3:45 PM CDT) Cholesterol 129 0 - 199 [place] mg/dL [facility] Triglycerides 154 (H) 0 - 149 [place] mg/dL [facility] HDL cholesterol 32 (L) 40 - 99,999 [place] mg/dL [facility] LDL cholesterol 65 0 - 99 mg/dL [facility] Lipid panel See below [place] interpretation Comment: [facility] Total Cholesterol (mg/dL) [facility] <200 Desirable [id number] >=240High Triglycerides (mg/dL) <150 Normal [id number] 200-499High >=500Very high HDL Cholesterol (mg/dL) <40Low (male) <50Low (female) LDL Cholesterol (mg/dL) <100 Optimal 100-129Near or above optimal [phone] 160-189High >=190Very high Risk Catergories that modify LDL goals. Risk CatergoriesLDL goal (mg/dL) CHD and CHD risk equivalent<100 (10-year risk >20%) Multiple (2+) risk factors <130 (10-year risk=<20%) 0-1 risk factors <160 (<10-year risk) Defining levels of lipids in metabolic syndrome Triglycerides>=150 mg/dL HDL Cholesterol Men<40 mg/dL Women<50 mg/dL Non-HDL cholesterol is a second target for therapy in persons with high triglycerides (>=200 mg/dL) Specimen Blood Performing Organization Address City/State/Zipcode Phone Number [facility] DEPARTMENT OF PATHOLOGY [address] [place] [address] AND GENOMIC MEDICINE [facility] [address] CTA Abdomen Pelvis W And Or Wo Contrast (11/15/2017 2:41 PM CDT) Specimen Narrative Performed At EXAMINATION:CT ANGIOGRAM ABDOMEN PELVIS [...] spleen. Fatty infiltration of the pancreas. 4.The [place] kidneys are atrophic. Hypoattenuating lesion in the [...] or flow-limiting stenosis. 2.Other findings as above. [id number] Procedure Note Interface, Radiology Results Incoming - [...] Fatty infiltration of the pancreas. 4. The [place] kidneys are atrophic. Hypoattenuating lesion in the [...] flow-limiting stenosis. 2. Other findings as above. [facility]-[id number] Performing Organization Address City/State/Zipcode Phone Number [facility] [address] [place] [address] Mammo Diagnostic w Cad Bilateral (11/15/2017 1:36 PM CDT) Specimen Narrative Performed At EXAMINATION:MAMMO DIAGNOSTIC W CAD [...] [id number] Performing Organization Address City/State/Zipcode Phone Number [facility] [address] [place] [id number] Low resolution full typing by SSO (11/15/2017 7:18 AM CDT) [facility] DEPARTMENT OF PATHOLOGY AND GENOMIC MEDICINE Low resolution full See link below [facility] DEPARTMENT OF typing by SSO for PDF Lab PATHOLOGY AND Report GENOMIC MEDICINE Specimen Performing Organization Address City/[facility] Phone Number [facility] DEPARTMENT OF PATHOLOGY AND [address] [place] [phone] GENOMIC [facility] C1Q class 1 & 2 antibody (11/15/2017 7:18 AM CDT) [facility] DEPARTMENT OF PATHOLOGY AND GENOMIC MEDICINE C1Q class 1 & 2 See link below [facility] DEPARTMENT OF antibody for PDF Lab PATHOLOGY AND Report GENOMIC MEDICINE Specimen Performing Organization Address [facility] Phone Number [facility] DEPARTMENT OF PATHOLOGY AND [address] [place], [place] [id number] [facility] HSV 1 & 2 glycoprotein G Ab, IgG (11/15/2017 7:18 AM CDT) Pathologist [facility] HSV 1 glycoprotein G Positive (A) Negative [facility] DEPARTMENT OF Ab, IgG Comment: PATHOLOGY AND Positive results may indicate current or past HSV infection. GENOMIC MEDICINE For acute illness, viral PCR and IgM testing are recommended. Individuals infected with HSV may not exhibit detectable antibodies in cases of early infection. HSV 2 glycoprotein G Positive (A) Negative [facility] DEPARTMENT OF Ab, IgG Comment: PATHOLOGY AND Positive results may indicate current or past HSV infection. GENOMIC MEDICINE For acute illness, viral PCR and IgM testing are recommended. Individuals infected with HSV may not exhibit detectable antibodies in cases of early infection. Specimen Serum Performing Organization Address [facility]/Zipcode Phone Number [facility] DEPARTMENT OF PATHOLOGY AND [address] [place] [phone] [facility] Enzo-Monroy virus antibody test (11/15/2017 7:18 AM CDT) EBV Ab to viral capsid Positive (A) Negative [facility] DEPARTMENT OF Ag, IgG PATHOLOGY AND GENOMIC MEDICINE EBV Ab to viral capsid Negative Negative [facility] DEPARTMENT OF Ag, IgM PATHOLOGY AND GENOMIC MEDICINE EBV Ab to nuclear Ag, Positive (A) Negative [facility] DEPARTMENT OF IgG PATHOLOGY AND GENOMIC MEDICINE EBV Ab to early (D) Negative Negative [facility] DEPARTMENT OF Ag, IgG PATHOLOGY AND GENOMIC MEDICINE Enzo-Monroy virus SEE [facility] DEPARTMENT OF antibody COMMENTComment: PATHOLOGY AND interpretation Infection Status: GENOMIC MEDICINE Results may suggest past EBV infection. Specimen Serum Performing Organization Address City/State/Zipcode Phone Number [facility] DEPARTMENT OF PATHOLOGY AND [address] [place] [id number] [facility] Single antigen beads (11/15/2017 7:18 AM CDT) [facility] DEPARTMENT OF PATHOLOGY AND GENOMIC MEDICINE Single antigen See link below [facility] DEPARTMENT OF beads for PDF Lab PATHOLOGY AND Report GENOMIC MEDICINE Specimen Performing Organization Address City/State/Zipcode Phone Number [facility] DEPARTMENT OF PATHOLOGY AND [address] [place] [address] [facility] HSV type 1/2 combined Ab, IgM (11/15/2017 7:18 AM CDT) [facility] HSV 1/2 combined 0.70 <=0.89 IV [facility] Ab, IgM Comment: INTERPRETIVE INFORMATION: Herpes Simplex Virus Type [...] than 12 months post- infection. Performed by [employer], [address] [place], [place] [id number] [email or web address], Von Villar MD - Lab. Director Specimen Serum Performing Organization Address City/State/Zipcode Phone Number [facility] [address] [place] [address] HLA autologous crossmatch, AHG (11/15/2017 7:18 AM CDT) [facility] DEPARTMENT OF PATHOLOGY AND GENOMIC MEDICINE HLA autologous See link below [facility] DEPARTMENT OF crossmatch for PDF Lab PATHOLOGY AND Report GENOMIC MEDICINE Specimen Performing Organization Address City/State/Zipcode Phone Number [facility] DEPARTMENT OF PATHOLOGY AND [address] [place] [phone] [place] [address] Herpes simplex virus by PCR (11/15/2017 7:18 AM CDT) Pathologist [facility] Herpes virus, PCR Not-Detected Not-Detected [facility] DEPARTMENT OF PATHOLOGY AND GENOMIC MEDICINE Herpes virus, PCR See link below [facility] DEPARTMENT OF for PDF Lab PATHOLOGY AND ReportComment: [employer] MEDICINE Specimen Performing Organization Address City/State/[facility] Phone Number [facility] DEPARTMENT OF PATHOLOGY AND [address] [place] [address] Estimated GFR (11/15/2017 7:18 AM CDT) Pathologist [facility] GFR Non Af Amer 11 (A) mL/min/1.73 [facility] DEPARTMENT OF m2 PATHOLOGY AND [facility] GFR Af Amer 13 (A) mL/min/1.73 [facility] DEPARTMENT OF Comment: m2 PATHOLOGY AND Chronic kidney disease: <60 mL/min/1.73m2 GENOMIC MEDICINE Kidney failure: <15 mL/min/1.73m2 The estimated [...] Americans. Specimen Plasma specimen Performing Organization Address City/[facility] Phone Number [facility] DEPARTMENT OF PATHOLOGY AND [address] [place] [address] Cytomegalovirus Ab, IgM (11/15/2017 7:18 AM CDT) Pathologist [facility] Cytomegalovirus Ab, IgM NegativeComment: Negative [facility] DEPARTMENT OF Negative: CMV IgM PATHOLOGY AND antibodies were GENOMIC MEDICINE not detected. Specimen Serum Performing Organization Address City/[facility]/Zipcode Phone Number [facility] DEPARTMENT OF PATHOLOGY AND [address] [place] [phone] [facility] ABORh - transplant (11/15/2017 7:18 AM CDT) Pathologist [facility] ABO grouping O [facility] DEPARTMENT OF PATHOLOGY AND GENOMIC MEDICINE Rh type POS [facility] DEPARTMENT OF PATHOLOGY AND GENOMIC MEDICINE Specimen Blood Performing Organization Address City/State/Zipcode Phone Number [facility] DEPARTMENT OF PATHOLOGY AND [address] [place] [address] MEDICINE Cytomegalovirus Ab, IgG (11/15/2017 7:18 AM CDT) Cytomegalovirus Ab, IgG Positive (A) Negative [facility] DEPARTMENT OF Comment: PATHOLOGY AND Positive; IgG antibody to CMV detected which may indicate GENOMIC MEDICINE exposure to CMV infection. Specimen Serum Performing Organization Address [facility] Phone Number [facility] DEPARTMENT OF PATHOLOGY AND [address] [place] [address] MEDICINE Triglycerides (11/15/2017 7:18 AM CDT) Triglycerides 103 <150 mg/dL [facility] DEPARTMENT OF PATHOLOGY AND GENOMIC MEDICINE Specimen Plasma specimen Performing Organization Address [facility] Phone Number [facility] DEPARTMENT OF PATHOLOGY AND [address] [place] [address] Parathyroid hormone (11/15/2017 7:18 AM CDT) PTH 278 (H) 15 - 65 pg/mL [facility] DEPARTMENT OF PATHOLOGY AND GENOMIC MEDICINE Specimen Blood Performing Organization Address [facility] Phone Number [facility] DEPARTMENT OF PATHOLOGY AND [address] [place] [address] MEDICINE LDH (11/15/2017 7:18 AM CDT) LDH 304 (H) 87 - 225 U/L [facility] DEPARTMENT OF PATHOLOGY AND GENOMIC MEDICINE Specimen Plasma specimen Performing Organization Address [facility] Phone Number [facility] DEPARTMENT OF PATHOLOGY AND [address] [place] [address] MEDICINE Fasting glucose level (11/15/2017 7:18 AM CDT) Glucose, fasting 176 (H) 65 - 99 mg/dL [facility] DEPARTMENT OF PATHOLOGY AND GENOMIC MEDICINE Specimen Blood Performing Organization Address [facility] Phone Number [facility] DEPARTMENT OF PATHOLOGY AND [address] [place] [address] MEDICINE Creatinine level (11/15/2017 7:18 AM CDT) Creatinine 4.1 (H) 0.5 - 0.9 mg/dL [facility] DEPARTMENT OF PATHOLOGY AND GENOMIC MEDICINE Specimen Plasma specimen Performing Organization Address [facility] Phone Number [facility] DEPARTMENT OF PATHOLOGY AND [address] [place] [address] MEDICINE Cholesterol (11/15/2017 7:18 AM CDT) Cholesterol 184 <200 mg/dL [facility] DEPARTMENT OF PATHOLOGY AND GENOMIC MEDICINE Specimen Plasma specimen Performing Organization Address City/State/Zipcode Phone Number [facility] DEPARTMENT OF PATHOLOGY AND [address] [place] [address] GENOMIC MEDICINE Occult blood, stool (11/14/2017 8:00 AM CDT)Only the most recent of3 resultswithin the time period is included. Occult blood, Negative for occult blood. [facility] DEPARTMENT OF stool Comment: PATHOLOGY AND Specimen Information GENOMIC MEDICINE Specimen Source: Stool Specimen Site: Nonpreserved Specimen Stool - Nonpreserved Performing Organization Address City/State/Zipcode Phone Number [facility] DEPARTMENT OF PATHOLOGY AND [address] [place] [address] GENOMIC MEDICINE after 10/08/2017 Insurance Payer Benefit Plan / Subscriber ID Effective Dates Phone Address Type Group MEDICARE MEDICARE PART A xxxxxxxxxxx 2014-Present [place], [place] Medicare AND B MEDICAID MEDICAID xxxxxxxxx 2018-Present Medicaid (Home) [address] [place] [address] #[facility] [place] [address] Qiana Valdez Trans[facility] Self [address] [place] [address] (Home) [id number] [place] [address] Advance Directives Patient has advance care planning documents, and code status on file. For more information, please contact:Sandor Lewis[address] [place] [address] Code Status Date Activated Date Inactivated Comments Full Code 06/21/2018 3:48 PM 07/05/2018 4:23 PM Code Status decision reached by: Patient
[2018-10-09 08:53] LABS: Albumin 3.4 g/dL (3.4-5.0); Bilirubin Total 0.5 mg/dL (0.2-1.0); Magnesium 2.5 mg/dL (1.8-2.4); Potassium 5.5 mmol/L (3.5-5.1); Protein, Total 7.8 g/dL (6.4-8.2)
[2018-10-09 08:58] LABS: Troponin (Emerg Dept Use Only) 0.66 ng/mL (0.0-0.045)
[2018-10-09] MEDS ORDERED: HEPARIN/D5W 25,000 UNIT/500 ML BAG IV ONE (09:23)
[2018-10-09] MEDS ORDERED: HEPARIN 5000 UNIT/ML 1 ML VIAL ONE (09:23)
--- NOTE | 2018-10-09 09:39 | RAD REPORT ---
EXAM DESCRIPTION: RAD - Chest Single View - 10/09/2018 7:53 am CLINICAL HISTORY: Chest pain and pressure COMPARISON: None. TECHNIQUE: AP portable chest image was obtained 0750 hours . FINDINGS: No focal lung parenchymal process. Mild prominence of the interstitial pattern is probably baseline. Vascular access catheter is present on the left and a right-sided pacemaker is in place. M ild cardiomegaly without vascular engorgement. No measurable pleural effusion and no pneumothorax. No acute bony abnormality seen. No acute aortic findings suspected. IMPRESSION: Cardiomegaly without other findings of failure or volume overload.
[2018-10-09] MEDS ORDERED: MORPHINE 4 MG/ML SYR ONE (10:00)
--- NOTE | 2018-10-09 10:12 | EDPHYS ---
Physician Documentation [facility] Name: Qiana Valdez Age: 63 yrs Sex: Female : 1955 Arrival Date: 10/09/2018 Time: 07:26 Bed 13 Private MD: ED Physician Dangelo Ibrahim HPI: 10/09 07:36 This 63 yrs old Female presents to ER via EMS with complaints of Chest ps1 Pressure. 07:36 patient states that she is an uncontrolled hypertensive. She states that she takes her ps1 rx'd medications as prescribed. Last 2 days her BP has been elevated >200 despite medications. She is ESRD on dialysis MWF, Dr. Bolivar. States that since yesterday she attests to CP with radiation to left shoulder. Pain rated as moderate and intermittent. BIBEMS as she could not do dialysis 2/2 complaints and BP. 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 . Historical: - Allergies: 07:30 No Known Allergies; ss - Home Meds: 08:20 atorvastatin 40 mg oral tab 1 tab once daily [Active]; lisinopril 20 mg Oral tab 1 tab sv twice a day [Active]; Nifedipine ER Oral 60 mg twice a day [Active]; doxazosin 4 mg oral tab twice a day [Active]; pantoprazole 40 mg oral TbEC 1 tab once daily [Active]; Fosrenol 1,000 mg oral pwpk 1 packet 3 times per day [Active]; Renvela oral 4 tabs TID oral [Active]; hydralazine 100 mg Oral tab Q8H [Active]; Senexon 8.6 mg oral tab twice a day [Active]; Lactulose 30 gm daily until bowels move and then stop taking prn Oral [Active]; - PMHx: 07:30 Diabetes - IDDM; ESRD; Hypertension; ss 08:20 Chronic ischemic heart disease; Iron deficiency anemia; Hyperparathyroidism; GERD; High sv Cholesterol; - Immunization history:: Adult Immunizations up to date. - Social history:: Smoking status: Patient/guardian denies using tobacco. - Ebola Screening: : Patient denies exposure to infectious person Patient denies travel to an Ebola-affected area in the 21 days before illness onset. ROS: 07:36 Constitutional: Negative for fever, chills, and weight loss, Eyes: Negative for injury, ps1 pain, redness, and discharge, ENT: Negative for injury, pain, and discharge, Respiratory: Negative for shortness of breath, cough, wheezing, and pleuritic chest pain, Abdomen/GI: Negative for abdominal pain, nausea, vomiting, diarrhea, and constipation, MS/Extremity: Negative for injury and deformity, Skin: Negative for injury, rash, and discoloration. 07:36 Cardiovascular: Positive for chest pain. 07:36 Neuro: Positive for headache. Exam: 07:36 Constitutional: This is a well developed, well nourished patient who is awake, alert, ps1 and in no acute distress. Head/Face: Normocephalic, atraumatic. Eyes: Pupils equal round and reactive to light, extra-ocular motions intact. Lids and lashes normal. Conjunctiva and sclera are non-icteric and not injected. Chest/axilla: Normal chest wall appearance and motion. Nontender with no deformity. No lesions are appreciated. Cardiovascular: Regular rate and rhythm. No gallops, murmurs, or rubs. Normal PMI, no JVD. No pulse deficits. Respiratory: Lungs have equal breath sounds bilaterally, clear to auscultation and percussion. No rales, rhonchi or wheezes noted. No increased work of breathing, no retractions or nasal flaring. Abdomen/GI: Soft, non-tender, with normal bowel sounds. No distension or tympany. No guarding or rebound. No evidence of tenderness throughout. MS/ Extremity: Pulses equal, no cyanosis. Neurovascular intact. Full, normal range of motion. Neuro: Awake and alert, GCS 15, oriented to person, place, time, and situation. Cranial nerves II-XII grossly intact. Sensory grossly intact. Psych: Awake, alert, with orientation to person, place and time. Behavior, mood, and affect are within normal limits. Vital Signs: 07:30 BP 205 / 85; Pulse 74; Resp 17; Pulse Ox 98% on R/A; Weight 72 kg; Height 5 ft. 3 in. ss (160.02 cm); Pain 8/10; 07:30 Temp 97.8(O); sv 07:53 BP 187 / 76; Pulse 71; Resp 16; Pulse Ox 96% ; sv 08:05 BP 179 / 75; Pulse 70; Resp 14; Pulse Ox 99% ; sv 08:15 Pulse Ox 90% on R/A; sv 08:20 BP 169 / 74; Pulse 66; Resp 14; Pulse Ox 99% ; sv 09:00 BP 178 / 86; Pulse 66 MON; Resp 15; Pulse Ox 99% on 2 lpm NC; sv 09:43 BP 201 / 95; Pulse 67 MON; Resp 12; Pulse Ox 97% on 2 lpm NC; sv 10:01 BP 156 / 66; Pulse 63 MON; Resp 13; Pulse Ox 98% on 2 lpm NC; sv 11:37 BP 178 / 77; Pulse 65; Resp 15; Pulse Ox 99% on 2 lpm NC; aj 07:30 Body Mass Index 28.12 (72.00 kg, 160.02 cm) ss 09:00 Sinus Rhythm sv 09:43 Sinus Rhythm sv 10:01 Sinus Rhythm sv 08:15 Pt placed on O2 \T\ 2L per NC. O2 sat up to 100%. sv MDM: 07:54 Patient medically screened. ps1 10/09 07:28 Order name: CBC with Diff; Complete Time: 07:54 ps1 10/09 07:28 Order name: Magnesium; Complete Time: 09:00 ps1 10/09 07:28 Order name: NT PRO-BNP; Complete Time: 09:00 ps1 10/09 07:28 Order name: PT-INR; Complete Time: 07:54 ps1 10/09 07:28 Order name: Troponin (emerg Dept Use Only); Complete Time: 09:00 ps1 10/09 07:28 Order name: CMP; Complete Time: 09:00 ps1 10/09 07:28 Order name: XRAY Chest (1 view); Complete Time: 10:28 ps1 10/09 07:28 Order name: EKG; Complete Time: 07:29 ps1 10/09 09:43 Order name: Glucose, Ancillary Testing; Complete Time: 10:28 EDMS 10/09 12:39 Order name: Troponin I; Complete Time: 12:42 EDMS 10/09 07:28 Order name: Cardiac monitoring; Complete Time: 07:37 ps1 10/09 07:28 Order name: EKG - Nurse/Tech; Complete Time: 07:37 ps1 10/09 07:28 Order name: IV Saline Lock; Complete Time: 07:38 ps1 10/09 07:28 Order name: Labs collected and sent; Complete Time: 07:37 ps1 10/09 07:28 Order name: O2 Per Protocol; Complete Time: 38 ps1 10/09 07:28 Order name: O2 Sat Monitoring; Complete Time: :38 ps1 EC:34 Rate is 71 beats/min. Rhythm is regular. QRS [place] is Normal. DE interval is normal. QRS ps1 interval is normal. QT interval is normal. No Q waves. T waves are Flattened in leads II, III, aVF. No ST changes noted. Clinical impression: NSR w/ Non-specific ST/T Changes. Administered Medications: 07:45 Drug: Nitroglycerin 0.4 mg Route: Sublingual; sv 07:57 Drug: Nitroglycerin 0.4 mg Route: Sublingual; sv 08:30 Follow up: Response: No adverse reaction sv 09:51 Drug: morphine 4 mg Route: IVP; Site: right forearm; sv 10:25 Follow up: Response: No adverse reaction; Marked relief of symptoms; Pt reports chest sv pressure has decreased. 13:13 Not Given (Physician Discretion): Heparin (ID-Bolus No thrombolytic) - HEParin 60 aj units/kg IVP once; Max 5000 units 13:13 Not Given (Physician Discretion): Heparin (ID Drip) 12 units/kg/hr - (HEParin 38292 aj units, D5W 500 ml) IV at calculated rate Per protocol; Max initial rate 1000 units/hr Point of Care Testing: Blood Glucose: 07:38 Blood Glucose: 235 mg/dL; ms Ranges: Critical Glucose Levels:Adult <50 mg/dl or >400 mg/dl <40 mg/dl or >180 mg/dl Disposition: 10/09/18 10:11 Hospitalization ordered by Joanne Miller for Inpatient Admission. Preliminary diagnosis is Non-ST elevation (NSTEMI) myocardial infarction. - Bed requested for Telemetry/MedSurg (Inpatient). - Status is Inpatient Admission. aj - Condition is Fair. - Problem is new. - Symptoms are unchanged. UTI on Admission? No Signatures: Dispatcher [employer] Starr Shearer RN Irina Omer RN RN aj [place], Eric em1 Katt Olguin RN RN ss Singer, Phillip, MD MD ps1 Corrections: (The following items were deleted from the chart) 12:45 10:11 Hospitalization Ordered by Joanne Miller MD for Inpatient Admission. Preliminary em1 diagnosis is Non-ST elevation (NSTEMI) myocardial infarction. Bed requested for Telemetry/MedSurg (Inpatient). Status is Inpatient Admission. Condition is Fair. Problem is new. Symptoms are unchanged. UTI on Admission? No. ps1 13:48 12:45 10/09/2018 10:11 Hospitalization Ordered by Joanne Miller MD for Inpatient aj Admission. Preliminary diagnosis is Non-ST elevation (NSTEMI) myocardial infarction. Bed requested for Telemetry/MedSurg (Inpatient). Status is Inpatient Admission. Condition is Fair. Problem is new. Symptoms are unchanged. UTI on Admission? No. em1
--- NOTE | 2018-10-09 10:12 | ER ---
Nurse's Notes [facility] Name: Qiana Valdez Age: 63 yrs Sex: Female : 1955 Arrival Date: 10/09/2018 Time: 07:26 Bed 13 Private MD: Diagnosis: Non-ST elevation (NSTEMI) myocardial infarction Presentation: 10/09 07:27 Presenting complaint: Patient states: chest pressure that began yesterday morning and ss headache x 2 days. Pt is supposed to have HD this AM. Transition of care: patient was not received from another setting of care. Onset of symptoms was October 08, 2018. Risk Assessment: Do you want to hurt yourself or someone else? Patient reports no desire to harm self or others. Initial Sepsis Screen: Does the patient meet any 2 criteria? No. Patient's initial sepsis screen is negative. Does the patient have a suspected source of infection? No. Patient's initial sepsis screen is negative. 07:27 Method Of Arrival: EMS: [facility] 07:27 Acuity: SIXTO 2 ss 07:27 Care prior to arrival: Medication(s) given: ASA, 81 mg, x 4, Nitroglycerin, 0.4 mg SL x ss 2. Historical: - Allergies: 07:30 No Known Allergies; ss - Home Meds: 08:20 atorvastatin 40 mg oral tab 1 tab once daily [Active]; lisinopril 20 mg Oral tab 1 tab sv twice a day [Active]; Nifedipine ER Oral 60 mg twice a day [Active]; doxazosin 4 mg oral tab twice a day [Active]; pantoprazole 40 mg oral TbEC 1 tab once daily [Active]; Fosrenol 1,000 mg oral pwpk 1 packet 3 times per day [Active]; Renvela oral 4 tabs TID oral [Active]; hydralazine 100 mg Oral tab Q8H [Active]; Senexon 8.6 mg oral tab twice a day [Active]; Lactulose 30 gm daily until bowels move and then stop taking prn Oral [Active]; - PMHx: 07:30 Diabetes - IDDM; ESRD; Hypertension; ss 08:20 Chronic ischemic heart disease; Iron deficiency anemia; Hyperparathyroidism; GERD; High sv Cholesterol; - Immunization history:: Adult Immunizations up to date. - Social history:: Smoking status: Patient/guardian denies using tobacco. - Ebola Screening: : Patient denies exposure to infectious person Patient denies travel to an Ebola-affected area in the 21 days before illness onset. Screenin:00 Abuse screen: Denies threats or abuse. Denies injuries from another. Nutritional sv screening: No deficits noted. Tuberculosis screening: No symptoms or risk factors identified. Fall Risk None identified. Assessment: 07:40 General: Appears in no apparent distress. uncomfortable, well developed, Behavior is sv calm, cooperative, appropriate for age. Pain: Complains of pain in mid-sternal area Pain radiates to left clavicle and left supraclavicular area and left trapezius Pain currently is 10 out of 10 on a pain scale. Quality of pain is described as pressure, Pain began this morning while getting ready for HD. Is continuous, Noted to be grimacing. Neuro: Level of Consciousness is awake, alert, obeys commands, Oriented to person, place, time, situation, Moves all extremities. Full function Speech is normal. Cardiovascular: Heart tones S1 S2 present Patient's skin is warm and dry. Rhythm is sinus rhythm. Respiratory: Airway is patent Respiratory effort is even, unlabored, Respiratory pattern is regular, symmetrical. Derm: Skin is pink, warm \T\ dry. 09:15 Reassessment: Was educated pt about the Heparin that has been ordered for the pt. sv Daughter stated that her MD had told her that she could not have heparin anymore. Pt had a fistula revision on the left arm and was on heparin injections and her arm started swelling and had bruising. She went back to surgery to have the fistula revised and she had a hard time clotting. Informed Dr Ibrahim, no further orders. 09:54 Reassessment: No changes from previously documented assessment. Patient and/or family sv updated on plan of care and expected duration. Pain level reassessed. Patient is alert, oriented x 3, equal unlabored respirations, skin warm/dry/pink. Pain: Complains of pain in mid-sternal area Pain radiates to left trapezius, left supraclavicular area and left clavicle Pain currently is 10 out of 10 on a pain scale. Quality of pain is described as pressure, Pain began this morning Is continuous, Alleviated by nothing. Noted to be grimacing. 10:23 Reassessment: Dr Miller at the bedside. sv 10:30 Reassessment: Patient appears in no apparent distress at this time. Patient and/or sv family updated on plan of care and expected duration. Pain level reassessed. Patient is alert, oriented x 3, equal unlabored respirations, skin warm/dry/pink. Pt stated that her chest pressure is better after the morphine. Vital Signs: 07:30 BP 205 / 85; Pulse 74; Resp 17; Pulse Ox 98% on R/A; Weight 72 kg; Height 5 ft. 3 in. ss (160.02 cm); Pain 8/10; 07:30 Temp 97.8(O); sv 07:53 BP 187 / 76; Pulse 71; Resp 16; Pulse Ox 96% ; sv 08:05 BP 179 / 75; Pulse 70; Resp 14; Pulse Ox 99% ; sv 08:15 Pulse Ox 90% on R/A; sv 08:20 BP 169 / 74; Pulse 66; Resp 14; Pulse Ox 99% ; sv 09:00 BP 178 / 86; Pulse 66 MON; Resp 15; Pulse Ox 99% on 2 lpm NC; sv 09:43 BP 201 / 95; Pulse 67 MON; Resp 12; Pulse Ox 97% on 2 lpm NC; sv 10:01 BP 156 / 66; Pulse 63 MON; Resp 13; Pulse Ox 98% on 2 lpm NC; sv 11:37 BP 178 / 77; Pulse 65; Resp 15; Pulse Ox 99% on 2 lpm NC; aj 07:30 Body Mass Index 28.12 (72.00 kg, 160.02 cm) ss 09:00 Sinus Rhythm sv 09:43 Sinus Rhythm sv 10:01 Sinus Rhythm sv 08:15 Pt placed on O2 \T\ 2L per NC. O2 sat up to 100%. sv ED Course: 07:26 Patient arrived in ED. ss 07:26 Dangelo Ibrahim MD is Attending Physician. ps1 07:29 Triage completed. ss 07:30 Arm band placed on right wrist. ss 07:37 Starr Nance, SUNITA is Primary Nurse. sv 07:38 Initial lab(s) drawn, by me, sent to lab. EKG done, by trailer technician. reviewed by Dangelo Ibrahim MD. Inserted saline lock: 20 gauge in right forearm, using aseptic technique. Blood collected. 07:40 EKG done, by trailer technician. reviewed by Dangelo Ibrahim MD. at1 07:45 Patient has correct armband on for positive identification. Placed in gown. Bed in low sv position. Call light in reach. Side rails up X 1. Adult w/ patient. lacquer dipping machine operator on. Pulse ox on. NIBP on. Door closed. Head of bed elevated. 07:49 X-ray completed. Portable x-ray completed in exam room. Patient tolerated procedure sw well. 07:51 XRAY Chest (1 view) In Process Unspecified. EDMS 09:05 Warm blanket given. sv 09:06 Oxygen administration via nasal cannula \T\ 2L/min Response to oxygen therapy: symptoms sv improved. 10:10 Joanne Miller MD is Hospitalizing Provider. ps1 11:03 Primary Nurse role handed off by Starr Nance RN bp 11:03 Koffi Dubose, SUNITA is Primary Nurse. bp 11:10 Report given to Koffi DORSEY. sv 13:05 No provider procedures requiring assistance completed. Patient admitted, IV remains in aj place. Administered Medications: 07:45 Drug: Nitroglycerin 0.4 mg Route: Sublingual; sv 07:57 Drug: Nitroglycerin 0.4 mg Route: Sublingual; sv 08:30 Follow up: Response: No adverse reaction sv 09:51 Drug: morphine 4 mg Route: IVP; Site: right forearm; sv 10:25 Follow up: Response: No adverse reaction; Marked relief of symptoms; Pt reports chest sv pressure has decreased. 13:13 Not Given (Physician Discretion): Heparin (GA-Bolus No thrombolytic) - HEParin 60 aj units/kg IVP once; Max 5000 units 13:13 Not Given (Physician Discretion): Heparin (GA Drip) 12 units/kg/hr - (HEParin 56172 aj units, D5W 500 ml) IV at calculated rate Per protocol; Max initial rate 1000 units/hr Point of Care Testing: Blood Glucose: 07:38 Blood Glucose: 235 mg/dL; ms Ranges: Intake: Outcome: 10:11 Decision to Hospitalize by Provider. ps1 13:05 Admitted to Tele accompanied by nurse, via stretcher, Report called to Siena DORSEY aj 13:05 Condition: stable 13:05 Instructed on the need for admit. 13:48 Patient left the ED. aj Signatures: Dispatcher [employer] EDMS Starr Nance, Irina Omer RN, RN Millie Bryan ms, Shelby, RN RN Irina Thorne, multiple tube winding machine operator EKG Tat1 Susan Meyer Brian, RN RN bp Singer, Phillip, MD MD ps1 Corrections: (The following items were deleted from the chart) 07:30 07:27 Care prior to arrival: None. [facility] 09: 09:00 BP 184 / 75; Pulse 66bpm; Resp 15bpm; Pulse Ox 99%; health system : 09:00 BP 178 / 86; Pulse 66bpm; Resp 15bpm; Pulse Ox 99%; sv sv
[2018-10-09 11:25] VITALS: BMI 28.2
[2018-10-09] MEDS ORDERED: ACETAMINOPHEN 500 MG TAB PO PRN (11:26)
[2018-10-09] MEDS ORDERED: ONDANSETRON 4 MG/2 ML VIAL IV PRN (11:26)
[2018-10-09] MEDS ORDERED: HEPARIN/D5W 500 ML IV SCH (11:26)
[2018-10-09] MEDS ORDERED: GLUCAGON 1 MG/VIAL IM PRN (11:56)
[2018-10-09] MEDS ORDERED: D50W 25 GM/50 ML SYRINGE IV PRN (11:56)
--- NOTE | 2018-10-09 12:50 | EKG ---
Test Date: 2018-10-09 Test Time: 07:34:12 Architectural Associate: THERESA MEASUREMENT RESULTS: Intervals: Rate: 71 NV: 136 QRSD: 88 QT: 454 QTc: 493 [place]: P: 15 NV: 136 QRS: 33 T: 217 INTERPRETIVE STATEMENTS: Normal sinus rhythm ST & T wave abnormality, consider inferolateral ischemia Prolonged QT Abnormal ECG No previous ECG available for comparison Electronically Signed On 10-09-18 12:49:17 CDT by Papi Mi
[2018-10-09] MEDS: INSULIN -REGULAR HUMAN 50 UNIT/0.5 ML ML SQ SCH ×2 (16:30→21:00)
[2018-10-09] MEDS: NITROGLYCERIN 0.4 MG/TAB SL PRN ×2 (17:28→19:34)
--- NOTE | 2018-10-09 17:52 | ECHO ---
HEIGHT: 5 ft 3 in WEIGHT: 159 lb 4.48 oz DATE OF STUDY: 10/09/[address]: Joanne Miller MD 2-DIMENSIONAL: YES M.MODE: YES DOPPLER: YES COLOR FLOW: YES TDS: NO PORTABLE: NO DEFINITY: NO BUBBLE STUDY: NO DIAGNOSIS: CHEST PAIN CARDIAC HISTORY: CATHERIZATION: YES SURGERY: YES PROSTHETIC VALVE: NO PACEMAKER: YES MEASUREMENTS (cm) DIASTOLIC (NORMALS) SYSTOLIC (NORMALS) IVSd 0.8 (0.6-1.2) LA Diam 3.7 (1.9-4.0) LVEF 57% LVIDd 4.2 (3.5-5.7) LVIDs 3.0 (2.0-3.5) %FS 30% LVPWd 1.1 (0.6-1.2) Ao Diam 2.6 (2.0-3.7) 2 DIMENSIONAL ASSESSMENT: RIGHT ATRIUM: NORMAL LEFT ATRIUM: NORMAL RIGHT VENTRICLE: NORMAL LEFT VENTRICLE: NORMAL TRICUSPID VALVE: NORMAL MITRAL VALVE: NORMAL PULMONIC VALVE: NORMAL AORTIC VALVE: NORMAL PERICARDIAL EFFUSION: NONE AORTIC ROOT: NORMAL LEFT VENTRICULAR WALL MOTION: NORMAL. DOPPLER/COLOR FLOW: MILD TRICUSPID REGURGITATION AND MITRAL REGURGITATION. RIGHT VENTRICULAR SYSTOLIC PRESSURE 42 MMHG. COMMENTS: MILD TRICUSPID AND MITRAL REGURGITATION. MILD PULMONARY HYPERTENSION. NORMAL LEFT VENTRICULAR SIZE AND FUNCTION. NO WALL MOTION ABNORMALITIES. NO EFFUSION. TECHNOLOGIST: FERDINAND GROVES
[2018-10-09] MEDS ORDERED: HYDRALAZINE HCL 20 MG/ML VIAL IV ONE (18:16)
[2018-10-09] MEDS ORDERED: AMLODIPINE 5 MG TAB PO ONE (19:41)
[2018-10-09] MEDS ORDERED: LABETALOL 20 MG/4ML SYRINGE IV ONE (19:44)
[2018-10-09] MEDS ORDERED: MORPHINE 2 MG/ML SYR IV ONE (19:48)
[2018-10-09] MEDS: METOPROLOL TAR 25 MG TAB PO SCH (21:06)
[2018-10-09] MEDS: HYDRALAZINE HCL 25 MG TABLET PO SCH (21:53)
[2018-10-09] MEDS: ATORVASTATIN 80 MG TAB PO SCH (21:54)
--- NOTE | 2018-10-09 22:43 | HP ---
Date of Admission: 10/09/2018 Primary Care Physician: Dr. Bustamante. Consultants: Dr. Mi with Cardiology; Dr. Ortiz with Nephrology. Chief Complaint: Chest pain. Code Status: Full. History Of Present Illness: The patient is a 63-year-old female with past medical history of diabete s, insulin requiring; hypertension; end-stage renal disease, on hemodialysis Tuesday, Tuesday, y with last dialysis on Tuesday; ischemic heart disease; iron deficiency anemia; hyperparathyroidism; GERD, hyperlipidemia and also recent adverse reaction to heparin with hematoma formation requiring mu ltiple surgeries on her left arm where she has AV graft which is no longer functional. The patient w as in her usual state of health until day prior to admission. The patient states that she had some c hest pain with radiation to the left shoulder. No nausea or vomiting. The patient was not was not f eeling well, had complained of some generalized malaise. The patient went for her dialysis today; ho wever, due to her elevated blood pressure and the systolic in the 200s and continued chest pressure, dialysis was not done and she was sent directly to the ER. The patient's symptoms are constant, mode rate, progressively worsening. Her chest pain radiates to the left shoulder. The patient was given 2 nitros and aspirin prior to admission via EMS. Her blood pressure improved to the 160s with nitro. The patient was referred for admission. Of note, the patient was supposed to be heparinized, [facility] er, family reported adverse reaction to heparin and therefore refused heparin. When seen in the ER, she was awake, alert, oriented x3, in mild distress. Past Medical History: Hypertension; hyperlipidemia; coronary artery disease; iron deficiency anemia; hyperparathyroidism; GERD; diabetes mellitus type 2, insulin requiring; end-stage renal disease, on hemodialysis Tuesday, Tuesday, and Tuesday. Surgical History: The patient has had an AV graft placed with subsequent hematoma formation and requ ired 4 surgeries including plastic surgery for reconstruction following necrosis due to adverse effec ts of heparin. She also has a temporary dialysis catheter in the chest, pacemaker placement. Allergies: NO KNOWN DRUG ALLERGIES. Medications: List reviewed. Social History: The patient denies any tobacco use, alcohol use, or illicit drug use. Has good soci al support. Independent in her activities of daily living. Family History: Denies any family history of premature coronary artery disease. Review of Systems: An 11-point system reviewed, negative except as per HPI. Physical Examination: Vital Signs: Blood pressure 169/74, pulse 66, respirations 14, O2 99% on 2 L via nasal cannula. Blo od pressure initially on admission was 205/85. General: Awake, alert, oriented x3, ill-appearing female. HEENT: Normocephalic, atraumatic. PERRLA. EOMI. Moist mucous membranes. Oropharynx is clear. No rmal dentition. Conjunctivae anicteric. Neck: Supple. Trachea midline. CV: S1, S2. Regular rate and rhythm. Peripheral pulses weak bilaterally. Respiratory: Diminished breath sounds. No wheezing or stridor. No use of accessory muscles. Gastrointestinal: Abdomen is soft, nontender, nondistended. Positive bowel sounds. Extremities: No clubbing, cyanosis. The patient has trace pedal edema. No calf tenderness. Neuro: Cranial nerves 2-12 intact grossly. No focal neurological deficits. Speech is normal. Stre ngth is symmetric in bilateral upper and lower extremities. Sensation intact to light touch. Skin: No rashes. Normal skin turgor. The patient does have Juan José catheter in place. Pacemaker i n place as well. Left arm has AV graft with palpable thrill. Still has some healing incision scars along with bandage. Psych: Mood is depressed. Affect is congruent with mood. Insight and judgment are fair. Laboratory Data: Sodium 139, potassium 5.5, chloride 103, CO2 24, BUN 67, creatinine 8.03, glucose 2 16, calcium 8.1, magnesium 2.5. Troponin 0.66. Repeat troponin 0.54. BNP 78,633. INR 1.03. Hepat itis panel is pending. WBC 3.2, H and H 11.6 and 35.4, platelets 118, neutrophils 50%. Chest x-ray, personally reviewed, shows cardiomegaly without other findings of failure or volume overload. EKG s hows a 71 beats per minute, normal sinus rhythm, T-wave flatten in II, III, aVF, no acute ST elevatio n. Assessment And Plan: A 63-year-old female with: 1.NSTEMI. Troponin level is elevated at 0.66. The patient is complaining of chest pain. We will s tart her on chest pain guidelines, beta-kath. Resume ANRCISA inhibitor, aspirin, and Plavix. The pat maria del carmen unfortunately cannot tolerate heparin or Lovenox. Cardiology has been consulted. The patient w ill likely go for heart catheterization in the a.m. after dialysis today. We will start her on nitro and morphine for her chest pain. Monitor serial cardiac enzymes and EKG. 2.End-stage renal disease, on hemodialysis Tuesday, Tuesday, Tuesday. The patient was not able to b e dialyzed today. Dr. Ortiz has been consulted. I spoke with her. She will arrange for dialysis topamela barnett. We will continue to monitor. 3.Hypertensive emergency. The patient's blood pressure is systolic in the 200s with chest pain and elevated troponin levels. Blood pressure is improved with nitroglycerin. We will resume home medica tions. 4.Hyperkalemia, likely due to end-stage renal disease. The patient will be dialyzed today. 5.Iron deficiency anemia. We will monitor H and H. 6.Ischemic heart disease. Continue aspirin and Plavix. 7.Hyperparathyroidism. 8.Gastroesophageal reflux disease. Resume home medications as appropriate. 9.Hyperlipidemia. We will check lipid panel. Continue statin. 10.Diabetes mellitus, type 2, insulin requiring, with hyperglycemia and chronic kidney disease, on d ialysis. We will continue with sliding scale insulin and monitor Accu-Cheks. Admit the patient to med-surg, place as inpatient. The patient is unable to tolerate heparin. Lengt h of stay, greater than 2 midnights. YESICA Voice ID: [id number]
--- NOTE | 2018-10-10 01:27 | CON ---
Date of Consultation: 10/09/2018 Chief Complaint: End-stage renal disease, severe fluid overload, hypertensive emergency, malignant hypertension, chest pain. History Of Present Illness: The patient came to the emergency room, was referred from [facility] when she developed severe hypertension. Dialysis was not done and EMS was called. The patient was send to the hospital because systolic blood pressure was 210. The patient was complaining of chest pain and headache. In the emergency room she was medicated for pain and received blood pressure medication. Stat dialysis was ordered for management of fluid overload. The patient received IV hydralazine for malignant hypertension. The patient is scheduled to have cardiac catheterization tomorrow. The patient has multiple medical problems including history of end-stage renal disease, on dialysis 3 times per week; diabetes mellitus, insulin dependent; hypertension; hyperlipidemia; chronic hypertensive heart and kidney disease; history of coronary artery disease; ischemic heart disease. Review of Systems: General: The patient is complaining of generalized weakness. Eyes: Denies vision changes. Ears, Nose, Mouth, and Throat: Denies sore throat, earache. Respiratory: Has shortness of breath. Denies wheezing, hemoptysis, cardiomyopathy. Had chest pain, pressure like in precordial area off and on. GI: Denies nausea, vomiting. : Denies dysuria, hematuria. Musculoskeletal: Denies muscle aches or swelling. SKIN: Denies oozing. The patient reports that she had complication from anticoagulant. She apparently has history of bleeding and possible heparin- induced thrombocytopenia. Records are available to me. All other systems reviewed and all are negative. Past Medical History: Diabetes mellitus, hypertension, coronary artery disease , iron-deficiency anemia, anemia due to chronic kidney disease, renal osteodystrophy, hyperparathyroidism, hypercholesterolemia, obesity. Social History: Denies tobacco, alcohol, illicit drugs. Family History: No kidney disease in the family. Physical Examination: General: The patient is awake, alert. Eyes: Anicteric sclerae. EOMI. Ears, Nose, Mouth, and Throat: Oral mucosa moist. No pallor. Neck: Supple. No bruits. Lungs: Few wheezy crackles bilaterally present at bases. Heart: S1, S2. No pericardial friction rub. Abdomen: Obese, soft, nontender. No rebound. No guarding. Extremities: Edema present in both legs. No clubbing. No cyanosis. Neurological: Moving extremities. Cranial nerves intact. Psychiatric: Alert, oriented x3. Normal affect. Cardiac echo showed normal ventricular size and function. No wall motion abnormalities. No effusion. Left ventricular ejection fraction 57%. Lab Work: Hemoglobin 11.6, WBC 3.2, platelet count 111,000. Chemistry showed sodium 139, potassium 5.5, chloride 103, CO2 24, BUN 67, creatinine 8.03, glucose 216, magnesium 2.5, troponin 0.66. BNP 78,633, albumin 3.4. Impression And Plan: 1. End-stage renal disease due to diabetic kidney disease. The patient has fluid overload, hypertensive emergency, malignant hypertension. The patient was started on IV medication for blood pressure control. The patient was medicated for headache. The patient is started on beta kath in view of elevated troponin and she is undergoing workup to rule out acute coronary syndrome. The patient has fluid overload and hypertensive heart and kidney disease. Plan to obtain ultrafiltration to treat fluid overload. The patient has anasarca. Continue low-sodium diet and p.o. fluid restriction. The patient will start diuretic along with additional dialysis and ultrafiltration, which will be done tomorrow to control fluid overload and to challenge dry weight, obtain negative fluid balance and treat congestive heart failure with diastolic dysfunction. 2. Anemia. Erythropoetin-stimulating agent on hold. 3. Diabetes mellitus. Continue insulin. 4. Coronary artery disease, ischemic heart disease. The patient will have cardiac catheterization. After procedure the patient will have dialysis to obtain negative fluid balance and to prevent hyperkalemia. GLENYS/EVAN Voice ID: [id number] Report ID: [id number] SHRAVAN
[2018-10-10 06:11] LABS: Basophils % 1.2 % (0-1.3); Eosinophils % 7.2 % (0-4.4); Hematocrit 33.6 % (36.0-45.0); Lymphocytes % 30.9 % (15.3-44.8); MPV 8.5 fL (7.6-11.3); Monocytes % 10.6 % (3.3-12.3); RBC Red Blood Cell Count 3.45 M/uL (3.86-4.86)
[2018-10-10 06:12] LABS: Protime INR 1.1
[2018-10-10 06:30] LABS: Albumin 3.2 g/dL (3.4-5.0); Bilirubin Total 0.4 mg/dL (0.2-1.0); Magnesium 2.3 mg/dL (1.8-2.4); Phosphorus 6.3 mg/dL (2.5-4.9); Potassium 4.8 mmol/L (3.5-5.1); Protein, Total 7.5 g/dL (6.4-8.2)
[2018-10-10] MEDS: INSULIN -REGULAR HUMAN 50 UNIT/0.5 ML ML SQ SCH ×4 (07:30→20:16)
--- NOTE | 2018-10-10 08:13 | EKG ---
Test Date: 2018-10-09 Test Time: 19:13:00 Summer Child Caregiver: RT MEASUREMENT RESULTS: Intervals: Rate: 70 NE: 146 QRSD: 88 QT: 452 QTc: 488 [employer]: P: 16 NE: 146 QRS: 7 T: 166 INTERPRETIVE STATEMENTS: Normal sinus rhythm Voltage criteria for left ventricular hypertrophy ST & T wave abnormality, consider inferolateral ischemia Prolonged QT Abnormal ECG Compared to ECG 10/09/2018 07:34:12 Left ventricular hypertrophy now present ST (T wave) deviation still present Possible ischemia still present Electronically Signed On 10-10-18 08:11:33 CDT by Papi Mi
[2018-10-10] MEDS: METOPROLOL TAR 25 MG TAB PO SCH ×2 (08:54→21:50)
[2018-10-10] MEDS: METOLAZONE 5 MG TABLET PO SCH (08:54)
[2018-10-10] MEDS: ASPIRIN EC 81 MG TAB PO SCH (08:55)
[2018-10-10] MEDS: HYDRALAZINE HCL 25 MG TABLET PO SCH ×3 (08:55→20:15)
[2018-10-10] MEDS: LOSARTAN POTASSIUM 50 MG TABLET PO SCH (08:55)
[2018-10-10] MEDS: CLOPIDOGREL 75 MG TABLET PO SCH (08:55)
[2018-10-10] MEDS: FUROSEMIDE 40 MG/4 ML VIAL IV SCH ×2 (08:56→17:00)
--- NOTE | 2018-10-10 11:40 | CON ---
Date of Consultation: 10/09/2018 Patient admitted on 10/09/[address] Miller's service. I saw the patient on 10/09/2018. Reason For Consultation: Non-ST elevation myocardial infarction. History Of Present Illness: Ms. Valdez is a 63-year-old [place] woman. She is on dialysis. A fter dialysis today she developed severe chest pressure, substernal, radiating to the shoulder with s ome diaphoresis but no vomiting. She was short of breath. She was transferred to telemetry and was found to have a troponin of 0.66. She was hypertensive with blood pressure 178/77. Creatinine was 8 .3. Her BNP was 78,633. EKG showed inferolateral ischemia. Echocardiogram showed normal ejection f raction with mild pulmonary hypertension. Chest x-ray showed cardiomegaly. She continues to have ch est pressure. Past Medical History: Include coronary artery disease status post coronary artery bypass surgery in 2016. She also has a pacemaker that was done at [facility]. She has diabetes, hypertension , dyslipidemia, gastroesophageal reflux disease. Review of Systems: Negative. Social History: Negative. Family History: Noncontributory. Medications: At home, include hydralazine, Lipitor, lisinopril, Procardia, Protonix, and doxazosin. Physical Examination: General: She appeared to be in mild distress. Vital Signs: Stable. She was afebrile. She was in sinus rhythm. Blood pressure is 178/77. HEENT: Negative. Neck: Supple without any bruit, lymphadenopathy, JVD, or thyromegaly. Chest: Clear to auscultation and percussion. Cardiac exam revealed a regular rhythm and rate with S4 gallops. No murmurs or rubs . Abdomen: Obese, but benign. Extremities: Revealed no clubbing, cyanosis, or edema. Skin: Dry and intact. Neurologic: She was nonfocal. Pulses were present in the femoral arteries and the distal lower extr emities. Diagnostic Data: As stated earlier. Impression And Plan: The patient with history of coronary artery disease status post CABG, status po st pacemaker with chest pressure, elevated troponin. I think she needs a left heart catheterization to define her coronary anatomy. The patient and family were present when I discussed the case with h er. They understand the risk and the benefits of the procedure and they agreed to proceed. 1.End-stage renal disease, on hemodialysis. The patient received dialysis today. 2.Diabetes, well controlled. 3.Hypertension, poorly controlled. We may have to increase some of her medication. 4.Dyslipidemia and gastroesophageal reflux disease, controlled with Lipitor and Protonix. We will m thalia decisions regarding therapy after the catheterization are done. LOIDA Voice ID: [id number] Report ID: [id number]
[2018-10-10] MEDS ORDERED: LACTULOSE 20 GM/30 ML UCUP PO PRN (11:49)
[2018-10-10] MEDS ORDERED: HOME MED 1 EA UNK (Hydralazine Hcl [Apresoline] 1 TAB) PO SCH (12:00)
--- NOTE | 2018-10-10 12:30 | EKG ---
Test Date: 2018-10-09 Test Time: 19:52:25 Printed Circuit Board Layout Designer: RT MEASUREMENT RESULTS: Intervals: Rate: 72 NH: 138 QRSD: 74 QT: 430 QTc: 470 [place]: P: 24 NH: 138 QRS: 45 T: 184 INTERPRETIVE STATEMENTS: Normal sinus rhythm RSR' or QR pattern in V1 suggests right ventricular conduction delay ST & T wave abnormality, consider inferolateral ischemia Prolonged QT Abnormal ECG Compared to ECG 10/09/2018 19:13:00 RSR' in V1 or V2 now present Left ventricular hypertrophy no longer present ST (T wave) deviation still present Possible ischemia still present Electronically Signed On 10-10-18 12:28:33 CDT by Papi Mi
[2018-10-10] MEDS ORDERED: NA CHLORIDE 0.9% 500 ML ONE (13:12)
[2018-10-10] MEDS ORDERED: HEPA 1000U/500MLS 2,000 UNIT/1,000 ML BAG IV ONE (13:13)
[2018-10-10] MEDS ORDERED: MIDAZOLAM HCL 2 MG/2 ML INJ ONE (13:28)
[2018-10-10] MEDS ORDERED: FENTANYL CITR 100 MCG/2 ML ONE (13:29)
[2018-10-10] MEDS ORDERED: NA CHLORIDE 0.9% 0 ML ONE (13:29)
[2018-10-10] MEDS ORDERED: ATROPINE SULF 1 MG/10 ML SYR IV ONE (13:29)
--- NOTE | 2018-10-10 13:56 | PN ---
Date of Progress Note: 10/10/2018 Subjective: The patient seen and examined. Chart reviewed and case discussed with RN and Dr. Casey cochran. The patient states she feels better. Going for heart catheterization today, did not have any acu te episodes overnight. Medications: List reviewed. Physical Examination: Vital Signs: Temperature 98.4, heart rate 68, blood pressure 167/74, respirations 18, O2 95% on room air. General: Awake, alert, oriented x3, not in any acute distress. CV: S1 and S2. Regular rate and rhythm. Peripheral pulses present. Respiratory: Moving air well bilaterally. No wheezing. Gastrointestinal: Abdomen is soft, nontender, nondistended. Positive bowel sounds. No guarding or rigidity. Extremities: No clubbing, cyanosis, or edema. Neuro: Cranial nerves 2 through 12 intact grossly. No focal neurological deficits. Speech is emilee l. Skin: No rashes. Normal skin turgor. Laboratory Data: Sodium 140, potassium 4.8, chloride 104, CO2 26, BUN 48, creatinine 7.02, glucose 1 38, calcium 8, phosphorus 6.3. Troponin level 0.54, 0.61, 0.59. Albumin 3.2. WBC 3.3, H and H 11 a nd 33.6, platelets 119, neutrophils 50%. INR 1.10. Blood cultures are pending. Echocardiogram; EF 57%, no wall motion abnormality, mild pulmonary hypertension. Assessment And Plan: A 63-year-old female with: 1.Csv-NM-quccxsvvi myocardial infarction. The patient going for heart catheterization today. Madhuri nue with chest pain guidelines. Appreciate Dr. Mi's input. 2.End-stage renal disease on hemodialysis. Appreciate Nephrology input. Continue dialysis as sched uled. 3.Hypertensive emergency. Blood pressure now improved. However, still difficult to control. Curre ntly in the 160s and 180s. We will adjust home medications. 4.Hyperkalemia, improved. 5.Hyperphosphatemia secondary to chronic kidney disease. 6.Iron deficiency anemia. We will continue to monitor H and H, stable. Transfuse as needed. 7.Ischemic heart disease. Continue aspirin and Plavix. 8.Hyperparathyroidism. 9.Gastroesophageal reflux disease. Continue PPI. 10.Hyperlipidemia. Continue statin. 11.Diabetes mellitus type 2, insulin requiring with hyperglycemia and chronic kidney disease on dial ysis. Continue sliding scale insulin. Monitor blood glucose levels. 12.Deep venous thrombosis prophylaxis addressed. /MODL Voice ID: [id number] Report ID: [id number]
[2018-10-10] MEDS ORDERED: cloNIDine HCl 0.1 MG TAB ONE (14:00)
[2018-10-10] MEDS: SEVELAMER CARBONATE 800 MG TABLET PO SCH (17:00)
--- NOTE | 2018-10-10 18:19 | CON ---
Date of Consultation: 10/10/2018 Diagnosis: End-stage renal disease. Called for evaluation of left hemodialysis catheter on the left side and also a stitch coming from the left AV graft in left arm. History Of Present Illness: This is the case of a 63-year-old patient with multiple medical issues, admitted for cardiac workup including apparently a cardiac cath. When she received dialysis, they no ticed a hemodialysis catheter still has some other stitches over the previous placement that was done several months ago in [place]. They want to me evaluate the area, since there is some redness aroun d the catheter, unable to say if this is an infection or just the stitches. She also have one stitch coming off from the left forearm region from previous surgeries. She denies any trauma. She receiv ed dialysis normally. Apparently, recently, she has chest pain with radiation to the left shoulder a nd she is going for cardiac cath. Allergies: NONE. Medications: Reviewed. Past Medical History: Includes diabetes, hypertension, end-stage renal disease on hemodialysis. Social History: She does not smoke. She does not drink alcohol. Family History: Noncontributory. Review of Systems: Ten points otherwise unremarkable. Physical Examination: General: The patient is awake and alert. HEENT: Pupils anicteric. Chest: Clear. Bilateral breath sounds. Abdomen: Soft and depressible. Genitalia: Deferred. Extremities and Chest: Over the left chest patient have a HemoSplit hemodialysis catheter. The area of the insertion site had some stitches has been removed, it looked like it has been there for a virgilio g time and naturally that was given the redness. I do not see any fluctuance or crepitus at this marcelle e. Yet, they may culture the area like they did already, although does not necessary represent any i nfection over the area but just flare over the region. Over the left extremity patient has left fore arm what looked like AV graft and there is some nylon stitches coming through the skin looked like th e incisions were healed, but those are poking through. She wants that excised or remove, at least tr im because it is bothering her, poking her in other parts when she touches the area. Laboratory Data: WBC count of 3.3, hemoglobin of 11. INR is 1.03, creatinine is 0.02. Assessment: A 63-year-old patient, the dialysis catheter looks okay. I will not remove those stitch es. I explained to her since it is acting like a foreign body and retaining also debride, even gauze debride that area. Hopefully we could put some Bactroban after that and she improved. From the lef t arm, I am not sure exactly what the stitches goes through, we might trim them and see if we can jus t basically buried the rest of her stitches. If we going to remove the entire stitch then I have to get some of the report from the other hospital to see what those stitches are holding to. She unders tood. We are going do that at bedside. STEFANIE/EVAN Voice ID: [id number] Report ID: [id number]
[2018-10-10] MEDS: DOCUSATE NA/SENNA CONC 1 TAB PO SCH (20:15)
[2018-10-10] MEDS: ATORVASTATIN 80 MG TAB PO SCH (20:15)
[2018-10-10] MEDS ORDERED: DOXAZOSIN 2 MG TAB ONE (20:28)
[2018-10-10] MEDS: DOXAZOSIN 4 MG TAB PO SCH (21:00)
[2018-10-10] MEDS: NIFEDIPINE XL 60 MG TABLET PO SCH (21:50)
--- NOTE | 2018-10-11 02:16 | OP ---
Date of Procedure: 10/10/2018 Surgeon: Papi Mi MD [employer]: Meera Felder. Description Of Procedure: Admitted to Dr. Miller's service on 10/09/2018 for non-ST elevation WA. Th e patient was brought to the clam bed laborer today as an inpatient. She was prepped and draped in the routi ne sterile fashion, given 1 mg of Versed for IV sedation. A 6-Pashto sheath introduced in the right common femoral artery. Angiography there was normal. StarClose was used to close the case. Allen catheters were used to do the diagnostic catheterization. She was found to have 2 sequential 70% an d 80% proximal RCA lesions with a patent graft to the RCA. She had a 90% proximal circumflex lesion with an open SVG to the OM. She had 100% LAD with an open BAUER to the LAD right after the BAUER and a nastomosis with the LAD, there seemed to be about a 40% stenosis. The patient was very hypertensive throughout the procedure with pressures of 197/97, although she was completely sedated. No complicat ions. Blood loss was 5 cc. Total conscious sedation was 30 minutes. Postoperative Diagnosis: Severe CAD. Plan: Plan is for medical therapy. We will also adjust her antihypertensive medicine. She will hav e dialysis tomorrow. She will go home today. I will discuss the case further with Dr. Miller. I rich l see her in the office in 2 weeks. Education Department Registrar: Gloria Almaraz Voice ID: [id number] Report ID: [id number]
[2018-10-11 06:18] LABS: Absolute Lymphocytes (CBC) 0.9 K/uL (0.7-4.9); Basophils % 1.1 % (0-1.3); Eosinophils % 8.8 % (0-4.4); Hematocrit 34.3 % (36.0-45.0); Lymphocytes % 30.3 % (15.3-44.8); MPV 8.7 fL (7.6-11.3); Monocytes % 10.4 % (3.3-12.3); RBC Red Blood Cell Count 3.49 M/uL (3.86-4.86)
[2018-10-11 06:42] LABS: Albumin 3.2 g/dL (3.4-5.0); Bilirubin Total 0.5 mg/dL (0.2-1.0); Potassium 4.8 mmol/L (3.5-5.1); Protein, Total 7.5 g/dL (6.4-8.2)
[2018-10-11 06:54] LABS: Blood Morphology Comment NOT SEEN (NOT SEEN); Platelet Estimate ADEQ; Urine White Blood Cell Casts OK
[2018-10-11] MEDS: INSULIN -REGULAR HUMAN 50 UNIT/0.5 ML ML SQ SCH ×3 (07:30→16:30)
[2018-10-11] MEDS: HYDRALAZINE HCL 25 MG TABLET PO SCH ×3 (08:54→20:05)
[2018-10-11] MEDS: SEVELAMER CARBONATE 800 MG TABLET PO SCH ×3 (08:54→16:50)
[2018-10-11] MEDS: DOXAZOSIN 4 MG TAB PO SCH ×2 (08:55→20:05)
[2018-10-11] MEDS: LOSARTAN POTASSIUM 50 MG TABLET PO SCH (08:55)
[2018-10-11] MEDS: ASPIRIN EC 81 MG TAB PO SCH (08:55)
[2018-10-11] MEDS: FUROSEMIDE 40 MG/4 ML VIAL IV SCH ×2 (08:55→16:50)
[2018-10-11] MEDS: NIFEDIPINE XL 60 MG TABLET PO SCH (08:56)
[2018-10-11] MEDS: DOCUSATE NA/SENNA CONC 1 TAB PO SCH ×2 (08:56→20:05)
[2018-10-11] MEDS: CLOPIDOGREL 75 MG TABLET PO SCH (08:56)
[2018-10-11] MEDS: METOPROLOL TAR 25 MG TAB PO SCH (08:56)
[2018-10-11] MEDS: METOLAZONE 5 MG TABLET PO SCH (08:56)
[2018-10-11] MEDS ORDERED: PANTOPRAZOLE 40MG TABLET PO SCH (09:00)
[2018-10-11] MEDS ORDERED: DOXAZOSIN 2 MG TAB ONE ×2 (09:03→20:19)
--- NOTE | 2018-10-11 12:09 | PN ---
Date of Progress Note: 10/10/2018 Subjective: The patient doing well. The patient is status post cardiac cath today. No nausea. No vomiting. Tolerated the cath very well. The patient chest pain free. The patient seen after cardia c cath. Objective: Vital Signs: Blood pressure 178/82. Chest: Clear to auscultation. Heart: S1 and S2, regular. Abdomen: Soft and nontender. Extremities: No edema. Laboratory Data: WBC 2.9, H and H 11.3/34.3, platelets 116. Sodium 140, potassium 4.8, bicarb 26, B UN 48, creatinine 7, calcium 8, phosphorus 6.3. Current Medications: The patient on its include atorvastatin, doxazosin, Cardura, hydralazine 25 t.i .d., losartan, metoprolol, nitroglycerin, lactulose, metolazone, Renvela, pantoprazole, Zofran. Assessment And Plan: 1.End-stage renal disease. Normal volume. We will continue the patient on her regular dialysis [facility] Tuesday, Tuesday, Tuesday. We will schedule for dialysis tomorrow. 2.Hypertension, controlled, optimal. Continue current medication. 3.Pancytopenia. The patient is going to be seen by Hematology/Oncology. 4.Coronary artery disease, status post cardiac cath. No intervention. Follow up with Cardiology. LEIGHANN Voice ID: [id number] Report ID: [id number]
--- NOTE | 2018-10-11 12:24 | PN ---
Date of Progress Note: 10/11/2018 Subjective: The patient admitted with chest pain, status post cardiac cath yesterday, tolerated the procedure. Physical Examination: Vital Signs: Blood pressure 171/71, pulse of 63. Chest: Clear to auscultation. Heart: S1 and S2, regular. Abdomen: Soft and nontender. Extremities: No edema. Laboratory Data: Potassium 4.8, bicarb 26, BUN 48, creatinine 7, calcium 8, phosphorus 6.3. WBC 2.9 , H and H 11.3/34.3, platelets 116. Current Medications: The patient on include aspirin, Plavix, losartan 100, hydralazine 25 t.i.d., ni troglycerin, Lasix 80 b.i.d., metolazone, lactulose, Renvela, Zofran. Assessment And Plan: 1.End-stage renal disease. Normal volume. Due for dialysis today. 2.Hypertension, controlled, not optimal. I am going to follow up blood pressure post dialysis. 3.Anemia. No need for MELA. 4.Leukopenia, thrombocytopenia. Hematology want to evaluate him as outpatient. We will follow up a s outpatient. Keep holding any heparin in possible heparin-induced thrombocytopenia. I going to dis continue PPI also. 5.Coronary artery disease, status post cardiac cath as by Cardiology. The patient cleared from the renal standpoint for discharge planning after dialysis. LEIGHANN Voice ID: [id number] Report ID: [id number]
--- NOTE | 2018-10-11 14:25 | CON ---
History Of Present Illness: Mrs. Valdez cardiac cath yesterday showed that all of her grafts are mi nt and working well. There was no critical lesion that needed a stent. She does not need any repeat bypass surgery. Ejection fraction is normal. Her symptoms seem to improve when her blood pressure came under better control. On her present medical regimen, I think she is stable enough to be discha rged home later today. ABUNDIO/EVAN Voice ID: [id number] Report ID: [id number]
[2018-10-11] MEDS: ATORVASTATIN 80 MG TAB PO SCH (20:04)
[2018-10-11 20:06] VITALS: BP 163/73
[2018-10-11 20:22] LABS: HBsAG Nonreactive (Nonreactive)
[2018-10-11 21:12] VITALS: O2SAT 98
[2018-10-11 22:09] VITALS: TEMP 98.1
--- NOTE | 2018-10-12 15:21 | DS ---
Date of Discharge: 10/11/2018 Consultants: 1. Dr. Mi with Cardiology. 2. Dr. Jackson with Nephrology. 3. Dr. Rust also with Nephrology. 4. Dr. Bah with General Surgery, who did bedside trimming of the sutures. 5. Dr. Gaston with Hematology. Procedure: On 10/10/2018, cardiac catheterization with no stenting. Admitting Diagnoses: 1. Ese-FH-oenkaafmi myocardial infarction. 2. End-stage renal disease on hemodialysis. 3. Hypertensive emergency. 4. Hyperkalemia. 5. Iron deficiency anemia. 6. Ischemic heart disease. 7. Hyperparathyroidism. 8. Gastroesophageal reflux disease without esophagitis. 9. Mixed hyperlipidemia. 10. Diabetes mellitus type 2, insulin requiring with chronic kidney disease on dialysis. Discharge Diagnoses: 1. Rou-WK-oppafzvod myocardial infarction, status post cardiac catheterization. 2. Coronary artery disease, yurok artery and yurok heart, status post coronary artery bypass graft. 3. End-stage renal disease on hemodialysis. 4. Hypertensive emergency, improved. 5. Hyperkalemia, corrected. 6. Hyperphosphatemia, corrected. 7. Iron deficiency anemia, H and H are stable. 8. Hyperparathyroidism. 9. Gastroesophageal reflux disease without esophagitis. 10. Mixed hyperlipidemia, on statin. 11. Diabetes mellitus type 2, insulin requiring with hyperglycemia and chronic kidney disease on dialysis. Hospital Course: The patient is a 63-year-old female with several comorbid conditions and significant history including diabetes, hypertension, end-stage renal disease on dialysis, coronary artery disease status post CABG, iron deficiency anemia, hyperlipidemia, comes in with chest pain. The patient recently had some adverse reaction to heparin while she was being treated for AV graft malfunction and daughters had stated that she cannot tolerate heparin as she will have a bleeding diathesis. The patient was found to have NSTEMI. She was unable to be heparinized. She was started on aspirin and Plavix with medical management. She was seen by Cardiology. Cardiac catheterization was done as mentioned and Cardiology recommended medical management. Echocardiogram was done, which showed EF of 57%. She had mild tricuspid and mitral regurg, mild pulmonary hypertension. No wall motion abnormalities or effusion. The patient's pain improved significantly. She tolerated the procedure well. She was also seen by Dr. Rust to continue her dialysis as scheduled. Dr. Gaston with Hematology was also consulted. However, she recommended outpatient followup once she is able to review records from [facility] regarding adverse effects to heparin. Dr. Bah was also consulted for the patient's wound on the right arm where the AV fistula graft is, which is no longer functional. There were some sutures that were protruding and were trimmed at the bedside. The sutures were not removed due to unforeseen complications. He deferred to primary surgeon at [facility]. The patient continued her dialysis as well. Her blood pressure was an issue and was difficult to control, her medications were adjusted. The patient overall did well. She was then cleared for discharge and was sent home in a stable condition. Activity: As tolerated. Diet: Diabetic. Followup: Follow up with PCP in 2-3 days. Follow up with hr manager, Dr. Mi in 2 weeks. Medications: As per medication reconciliation list. Physical exam: General: AAOx3 CV: S1, S2 Respiratory: CTA bilaterally. GI: Abdomen soft, NT/ND +BS Extremities: no c/c/e Neuro: Non focal Skin: Right arm incision site c/d/i. Sutures in place Total time spent discharging patient was 33 minutes. YESICA Voice ID: [id number] Report ID: [id number] SHRAVAN
== END 2018-10-11 21:45 | disposition home or self-care (01) | DRG 280 ==
LOC: ER 07:23 → ERHOLD 09:44 → 2ND 12:51
PROVIDERS: ADMIT Family Medicine; ATTEND Family Medicine
PROC: 5A1D70Z Performance of Urinary Filtration, Intermittent, Less than 6 Hours Per Day (ICD-10-PCS; principal; 2018-10-09)
PROC: 5A1D70Z Performance of Urinary Filtration, Intermittent, Less than 6 Hours Per Day (ICD-10-PCS; 2018-10-10)
PROC: 4A023N7 Measurement of Cardiac Sampling and Pressure, Left Heart, Percutaneous Approach (ICD-10-PCS; 2018-10-10)
PROC: B203YZZ Plain Radiography of Multiple Coronary Artery Bypass Grafts using Other Contrast (ICD-10-PCS; 2018-10-10)
PROC: B201YZZ Plain Radiography of Multiple Coronary Arteries using Other Contrast (ICD-10-PCS; 2018-10-10)
PROC: 5A1D70Z Performance of Urinary Filtration, Intermittent, Less than 6 Hours Per Day (ICD-10-PCS; 2018-10-11)
DX: I21.4 Non-ST elevation (NSTEMI) myocardial infarction (principal); N18.6 End stage renal disease; I12.0 Hypertensive chronic kidney disease with stage 5 chronic kidney disease or end stage renal disease; I16.1 Hypertensive emergency; I25.10 Atherosclerotic heart disease of native coronary artery without angina pectoris; Z99.2 Dependence on renal dialysis; E11.22 Type 2 diabetes mellitus with diabetic chronic kidney disease; E21.3 Hyperparathyroidism, unspecified; E87.5 Hyperkalemia; D50.9 Iron deficiency anemia, unspecified; Z95.1 Presence of aortocoronary bypass graft; E83.39 Other disorders of phosphorus metabolism; E78.2 Mixed hyperlipidemia
CPT/HCPCS: 36415; 71045; 80053; 80061; 82962; 83735; 83880; 84100; 84484; 85025; 85610; 86704; 86706; 86803; 87040; 87070; 87075; 87205; 87340; 90935; 93005; 93306; 93459; 94760; 96374; 99285; C1893; J0360; J0583; J1644; J1940; J2250; J2270; J3010

== ENCOUNTER 2018-10-12 10:35 | Emergency (ER) | payer OTHER ==
--- OUTSIDE RECORDS SUMMARY | 2018-10-12 10:39 | XMS REPORT | Clinical Summary ---
:1955 Author Organization [facility] Address [address] [place] [id number] Care Team Providers Name Role Phone Unavailable [...] Not on file Results Not on fileafter 10/11/2017 Insurance Payer Benefit Plan / Group Subscriber ID Type Phone Address [employer] xxxxxxxxxx [facility] MEDICAID MEDICAID [facility] xxxxxxxxx Medicaid
--- OUTSIDE RECORDS SUMMARY | 2018-10-12 10:39 | XMS REPORT ---
:1955 Author Organization [facility] Address [address] [place] [address] [address]. [address] [place] [address] Care Team Providers Name Role Phone Unavailable Unavailable Unavailable Problems This patient has no known problems. Allergies, Adverse Reactions, Alerts This patient has no known allergies or adverse reactions. Medications This patient has no known medications. Encounters Start End Encounter Admission Attending Care Care Encounter Date/Time Date/Time Type Type Clinicians Facility Department ID 2018-09-18 Outpatient [facility] [id number] 08:26:04 2018-01-22 2018-01-22 Emergency E [facility] [id number] 16:17:00 16:17:00
--- OUTSIDE RECORDS SUMMARY | 2018-10-12 10:39 | XMS REPORT | Clinical Summary ---
:1955 Author Organization [place] [facility] Address [address] [place] [address] Care Team Providers Name Role Phone Wild [...] 06/24/2018 Anesthesia Event General Surgery Millie Baker, IT QUALITY ANALYST 06/24/2018 Surgery General Surgery Hieu, KARLA FORE ARM MD Agusto EXPLORATION , HEMATOMA EVACUATION AND HEMOSTASIS 06/22/2018 Anesthesia Event General Surgery Angelina Moreno NP 06/22/2018 Surgery General Surgery Klaus Denny LEFT UPPER T.MD EXTREMITY AV FISTULA REVISION , Tunnelled Dialysis Catheter Placement Left IJ 06/21/2018 - Hospital Encounter General Internal Mj, Salman End stage renal 07/05/2018 Medicine MD Meenu disease ([facility]) 03/22/2018 Documentation Transplant [place], [facility] robert Phillips RN 12/09/2017 Documentation Transplant [...] after dialysis. pt avail /Th. ) after 10/11/2017 Immunizations Name Dates Previously Given Next Due [...] 11/16/2019 11/15/2017, 04/10/2015 Implants Implanted Type Area Roving Can Tender Device Shelf Model / Identifier Expiration Serial / Date Lot Catheter Hmodial Dura-Flow Prcrv Bsc Valved Pelbl Shth 28cm - [id number] Central N/A: N/A [employer] 06/23/2019 [id number] / Implanted: Qty: 1 on 06/22/2018 by Klaus Denny MD [employer] / Catheters Pacemaker Pacemaker Kit Selnt Fibrin Humn Hmsts Surgy 5ml Evicel - [id number] Surgical N/A: N/A [facility]- 06/23/2019 [id number] / Implanted: Qty: 1 on 06/22/2018 by Klaus Denny MD Implants; / Expanders; Extenders; Surgical Wires Particle Soft-Tissue Grft Micronized For Impntn Recon 1000mg - [id number] Surgical Arm, [employer] 02/02/2020 [id number] / Implanted: Qty: 1 on 06/24/2018 by Agusto Hagen MD Implants; Lower / Expanders; Extenders; Surgical Wires Kit Selnt Fibrin Humn Hmsts Surgy 5ml Evicel - [id number] Surgical N/A: N/A [facility] 06/27/2019 [id number] / Implanted: Qty: 1 on [...] CDT procedure are in the results section. MD AN ELECTIVE Routine 07/20/2018 10:30 SUPRAGLOTTIC AIRWAY AM CDT Procedure Note - Millie Baker CRNA - 07/20/2018 10:30 AM CDT Airway Date/Time: 07/20/2018 9:42 AM Performed by: Millie Baker CRNA Authorized by: Yamil Hurd MD Location: OR Urgency: Elective Difficult Airway: No Anesthesiologist: Yamil Hurd MD Resident/IT QUALITY ANALYST/AA: Millie Baker CRNA Performed by: resident/IT QUALITY ANALYST/AA Preoxygenated with 100% O2: Yes C-spine Precautions [...] SPECTRAL COLOR DOPPLER procedure are in the (54503) results section. POC GLUCOSE Routine 06/30/2018 11:09 [...] primary anesthetic Staff: Anesthesiologist: Anjelica Nichols MD Resident/IT QUALITY ANALYST/AA: Millie Baker CRNA Performed by: Anesthesiologist Preprocedure: [...] CORRECTED procedure are in the results section. MD AN ELECTIVE ENDOTRACHEAL Routine 06/24/2018 10:24 PM CDT AIRWAY Procedure Note - Yamil Hurd MD - 06/24/2018 10:24 PM CDT Airway Date/Time: 06/24/2018 10:24 PM Performed by: Yamil Hurd MD Authorized by: Yamil Hurd MD Location: OR Urgency: Elective Difficult Airway: No Anesthesiologist: Yamil Hurd MD Resident/IT QUALITY ANALYST/AA: Millie Baker CRNA Performed by: resident/IT QUALITY ANALYST/AA Preoxygenated with 100% O2: Yes C-spine Precautions [...] 10:19 PM Staff: Anesthesiologist: Yamil Hurd MD Resident/IT QUALITY ANALYST/AA: Millie Baker CRNA Performed by: Anesthesiologist Pre-procedure: [...] PATHOLOGY REQUEST Routine 06/22/2018 3:32 PM CDT MD AN PERIPHERAL BLOCK Routine 06/22/2018 12:39 PM [...] primary anesthetic Staff: Anesthesiologist: Marlys Hallman MD Resident/IT QUALITY ANALYST/AA: Eve Perez CRNA Other Staff: Yamil Hurd [...] procedure are in the results section. after 10/11/2017 Results POC glucose (07/22/2018 8:22 AM CDT)Only the most recent of91 resultswithin the time period is included. POC glucose 94 65 - 99 mg/dL [facility] Comment: [facility] Meter ID: [id number] Blind Eyeletter: Iron Butler Specimen Performing Organization Address City/State/Zipcode Phone Number [facility] DEPARTMENT OF PATHOLOGY [address] [facility] [address] Estimated GFR (07/22/2018 5:30 AM CDT)Only the most recent of18 resultswithin the time period is included. Pathologist [facility] Estimated GFR 12 (A) mL/min/1.73 [facility] Comment: m2 [facility] CatergoryUnitsInterpretation HOSPITAL G1 >=90 Normal or high G2 60-89Mildly decreased A1g70-53Nsibpp to moderately decreased R8s89-12[place] to severely decreased G4 15-29Severely decreased G5 <15Kidney failure The eGFR was calculated using the Chronic Kidney Disease Epidemiology Collaboration (CKD-EPI) equation. Interpretation is based on recommendations of the National Kidney Foundation-Kidney Disease Outcomes Quality Initiative (NKF-KDOQI) published in 2014. Specimen Plasma specimen Performing Organization Address City/State/Zipcode Phone Number [facility] DEPARTMENT OF PATHOLOGY [address] [place] [address] AND [facility] [id number] [place] [address] CBC with platelet and differential (07/22/2018 5:30 AM CDT)Only the most recent of17 resultswithin the time period is included. Pathologist [facility] WBC 3.2 (L) 4.5 - 11.0 k/uL [facility] RBC 3.01 (L) 4.20 - 5.50 [facility] m/uL [facility] HGB 9.1 (L) 12.0 - 16.0 [facility] g/dL [facility] HCT 29.2 (L) 37.0 - 47.0 % [facility] MCV 97.0 82.0 - 100.0 fL [facility] MCH 30.2 27.0 - 34.0 pg [facility] MCHC 31.2 31.0 - 37.0 [facility] g/dL [facility] RDW - SD 67.0 (H) 37.0 - 55.0 fL [facility] MPV 11.0 6.9 - 11.0 fL [facility] Platelet count 150 150 - 400 K/uL [facility] Nucleated RBC 0.00 /100 WBC [facility] Neutrophils 42.6 39.0 - 69.0 % [facility] Lymphocytes 27.5 25.0 - 45.0 % [facility] Monocytes 15.4 (H) 0.0 - 10.0 % [facility] Eosinophils 12.7 (H) 0.0 - 5.0 % [facility] Basophils 1.5 (H) 0.0 - 1.0 % [facility] Immature granulocytes 0.3 0.0 - 1.0 % [facility] Specimen Blood Performing Organization Address City/State/Zipcode Phone Number [facility] DEPARTMENT OF PATHOLOGY [id number] [place] [address] [address] Basic metabolic panel (07/22/2018 5:30 AM CDT)Only the most recent of16 resultswithin the time period is included. Sodium 139 135 - 148 mEq/L [facility] Potassium 4.3 3.5 - 5.0 mEq/L [facility] Chloride 102 98 - 112 mEq/L [facility] CO2 25 24 - 31 mEq/L [facility] Anion gap 12@ANIO 7 - 15 mEq/L [facility] BUN 20 8 - 23 mg/dL [facility] Creatinine 3.89 (H) 0.50 - 0.90 mg/dL [facility] Glucose 100 (H) 65 - 99 mg/dL [facility] Calcium 8.9 8.8 - 10.2 mg/dL [facility] Specimen Plasma specimen Performing Organization Address City/State/Zipcode Phone Number [facility] DEPARTMENT OF PATHOLOGY [id number] [place] [address] [address] POC panel 4 (07/20/2018 9:05 AM CDT) POC sodium 138 135 - 148 [facility] mmol/L [facility] POC potassium 5.0 3.5 - 5.0 [facility] POC hematocrit 36 (L) 37 - 47 % [facility] POC glucose 118 (H) 65 - 99 mg/dL [facility] POC hemoglobin 12.2 12.0 - 16.0 [facility] Comment: g/dL [facility] Meter ID: [id number] HOSPITAL Blind Eyeletter: Jim Ling Specimen Blood Performing Organization Address City/[facility]/Zipcode Phone Number [facility] DEPARTMENT OF PATHOLOGY [address] [place] [address] Partial thromboplastin time, activated (07/20/2018 8:59 AM CDT)Only the most recent of7 resultswithin the time period is included. PTT 46.2 (H) 23.0 - 36.0 [facility] Comment: [facility] PTT therapeutic range for unfractionated heparin is HOSPITAL 61.0-112.0 seconds which corresponds to Anti-Xa 0.3-0.7 U/ml. Specimen Blood Performing Organization Address [facility] Phone Number [facility] DEPARTMENT OF PATHOLOGY [address] [place] [address] Prothrombin time with INR (07/20/2018 8:59 AM CDT)Only the most recent of11 resultswithin the time period is included. Prothrombin time 13.0 11.5 - 14.5 [facility] INR 1.0 [place] Comment: [facility] International Normalized Ratio (INR) is a [facility] monitoring tool for patients who are stable on oral anticoagulant therapy. An INR of 2.0-3.0 is suggested for deep vein thrombosis/pulmonary embolism. Specimen Blood Performing Organization Address [facility] Phone Number [facility] DEPARTMENT OF PATHOLOGY [address] [place] [address] Fibrinogen (07/20/2018 8:59 AM CDT)Only the most recent of3 resultswithin the time period is included. Fibrinogen 466 (H) 200 - 450 mg/dL [facility] Specimen Blood Performing Organization Address City/State/Zipcode Phone Number [facility] DEPARTMENT OF PATHOLOGY [address] [place] [address] AND [facility] [address] [place] [address] HOSPITAL Type and screen (07/20/2018 8:59 AM CDT)Only the most recent of3 resultswithin the time period is included. ABO grouping O [facility] Rh type POS [facility] Antibody screen (gel) NEG [facility] Specimen Blood Performing Organization Address [facility] Phone Number [facility] DEPARTMENT OF PATHOLOGY [address] [place] [address] AND [facility] [address] [place] [address] HOSPITAL NM Gastric Emptying (07/04/2018 12:36 PM CDT) Specimen Narrative Performed At PROCEDURE:NM GASTRIC [facility]MP[facility]ING [facility] INDICATION:Feeding difficulty.Evaluate for gastroparesis. TECHNIQUE: 0.5 mCi [...] residual. IMPRESSION: 1.Moderately delayed gastric emptying rate. [facility]-[id number] Procedure Note Interface, Radiology Results Incoming - [...] IMPRESSION: 1. Moderately delayed gastric emptying rate. [facility]-[id number] Performing Organization Address City/[facility]/Zipcode Phone Number [facility] [address] [place] [address] Magnesium level (07/02/2018 5:40 AM CDT)Only the most recent of7 resultswithin the time period is included. Magnesium 2.3 1.6 - 2.4 mg/dL [facility] Specimen Plasma specimen Performing Organization Address City/[facility]/Zipcode Phone Number [facility] DEPARTMENT OF PATHOLOGY [id number] [place] [address] [address] Comprehensive metabolic panel (07/02/2018 5:40 AM CDT)Only the most recent of2 resultswithin the time period is included. Sodium 136 135 - 148 mEq/L [facility] Potassium 3.9 3.5 - 5.0 mEq/L [facility] Chloride 97 (L) 98 - 112 mEq/L [facility] CO2 29 24 - 31 mEq/L [facility] Anion gap 10@ANIO 7 - 15 mEq/L [facility] BUN 26 (H) 8 - 23 mg/dL [facility] Creatinine 5.57 (H) 0.50 - 0.90 [facility] mg/dL [facility] Glucose 135 (H) 65 - 99 mg/dL [facility] Calcium 8.3 (L) 8.8 - 10.2 [facility] mg/dL [facility] Protein 6.6 6.3 - 8.3 g/dL [facility] Albumin 2.9 (L) 3.5 - 5.0 g/dL [facility] A/G ratio 0.8 0.7 - 3.8 [facility] Alkaline phosphatase 192 (H) 35 - 104 U/L [facility] AST 28 10 - 35 U/L [facility] ALT <5 (A) 5 - 50 U/L [facility] Total bilirubin 0.6 0.2 - 1.2 mg/dL [facility] Specimen Plasma specimen Performing Organization Address City/[facility] Phone Number [facility] DEPARTMENT OF PATHOLOGY [address] [place] [address] AND GENOMIC MEDICINE [address] XR Chest 1 Vw Portable (07/02/2018 [...] Minimal left basilar atelectasis. No detrimental change. [facility]-[id number] Procedure Note Hm Interface, Radiology Results Incoming [...] Minimal left basilar atelectasis. No detrimental change. [facility]-[id number] Performing Organization Address City/State/Zipcode Phone Number [facility] [address] [place] [address] Lipase level (07/01/2018 4:25 PM CDT)Only the most recent of2 resultswithin the time period is included. Lipase 23 13 - 60 U/L [facility] Specimen Plasma specimen Performing Organization Address City/[facility]/Zipcode Phone Number [facility] DEPARTMENT OF PATHOLOGY [address] [place] [address] AND GENOMIC MEDICINE [facility] [address] Hepatic function panel (07/01/2018 4:25 PM CDT)Only the most recent of2 resultswithin the time period is included. Albumin 2.9 (L) 3.5 - 5.0 g/dL [facility] Total bilirubin 0.5 0.2 - 1.2 mg/dL [facility] Bilirubin direct 0.3 0.0 - 0.3 mg/dL [facility] Alkaline phosphatase 191 (H) 35 - 104 U/L [facility] Protein 6.6 6.3 - 8.3 g/dL [facility] ALT <5 (A) 5 - 50 U/L [facility] AST 33 10 - 35 U/L [facility] Specimen Plasma specimen Performing Organization Address City/[facility] Phone Number [facility] DEPARTMENT OF PATHOLOGY [address] [place] [address] [place] [address] HOSPITAL Manual differential (07/01/2018 6:15 AM CDT) Manual differential PERFORMED [facility] Neutrophils 72.0 (H) 39.0 - 69.0 % [facility] Lymphocytes 12.0 (L) 25.0 - 45.0 % [facility] Monocytes 12.0 (H) 0.0 - 10.0 % [facility] Eosinophils 3.0 0.0 - 5.0 % [facility] Basophils 0.0 0.0 - 1.0 % [facility] Promyelocytes 1 % [facility] Platelet slide review Angie slt decr (A) [facility] Anisocytosis Moderate [facility] Schistocytes Occasional [facility] Spherocytes Occasional [facility] Ovalocytes Moderate [facility] Acanthocytes Occasional [facility] Specimen Performing Organization Address [facility] Phone [facility] DEPARTMENT OF PATHOLOGY [address] [place] [address] [place] [address] HOSPITAL Echocardiogram complete w contrast and 3D [...] mildly reduced Performing Organization Address [facility] Phone Number [facility] [address] [place] [address] Transfuse RBC (06/28/2018 11:48 AM CDT)Only the most recent of13 resultswithin the time period is included.Phosphorus level (06/27/2018 2:30 AM CDT)Only the most recent of6 resultswithin the time period is included. Phosphorus 3.6 2.4 - 4.5 mg/dL [facility] Specimen Plasma specimen Performing Organization Address [facility] Phone Number [facility] DEPARTMENT OF PATHOLOGY [address] [place] [address] Ionized calcium (06/27/2018 2:30 AM CDT)Only the most recent of2 resultswithin the time period is included. pH 7.38 [facility] Ionized calcium 1.06 (L) 1.11 - 1.32 [facility] mmol/L [facility] Specimen Plasma specimen Performing Organization Address [facility] Phone Number [facility] DEPARTMENT OF PATHOLOGY [address] [place] [address] Hemoglobin & hematocrit (06/26/2018 12:00 PM CDT)Only the most recent of3 resultswithin the time period is included. HGB 9.4 (L) 12.0 - 16.0 g/dL [facility] HCT 27.3 (L) 37.0 - 47.0 % [facility] Specimen Blood Performing Organization Address City/[facility]/Zipcode Phone Number [facility] DEPARTMENT OF PATHOLOGY [address] [place] [address] Hepatitis B surface antibody (06/26/2018 9:09 AM CDT) Hepatitis B surface Reactive (A) Non-reactive [facility] Specimen Blood Performing Organization Address [facility] Phone Number [facility] DEPARTMENT OF PATHOLOGY AND [address] [place] [id number] [place] [address] Prepare RBC, 2 Units (06/26/2018 5:35 AM CDT)Only the most recent of5 resultswithin the time period is included. Product name Red Cells AS1 [facility] Leukored [facility] Unit number [id number] [facility] Product [facility] [id number] [facility] Dispense status Transfused [facility] Blood expiration [id number] [facility] Blood type [facility] 5100 [facility] Blood type O POSITIVE [facility] Product name Red Cells AS1 [facility] Leukored [facility] Unit number [id number] [facility] Product code [id number] [facility] Dispense status Transfused [facility] Blood expiration [id number] [facility] Blood type code 5100 [facility] Blood type O POSITIVE [facility] Specimen Blood Performing Organization Address [facility] Phone Number [facility] DEPARTMENT OF PATHOLOGY [address] [place] [address] [place] [address] HOSPITAL Transfuse platelets (06/25/2018 6:10 PM CDT)Only the most recent of6 resultswithin the time period is included.Activated clotting time, low response (06/25/2018 1:39 PM CDT) Activated clotting 148 89 - 169 sec [facility] time, low response Comment: [facility] Meter ID: [id number] HOSPITAL Blind Eyeletter: Fabienne MCDANIEL Specimen Performing Organization Address City/[facility]/Zipcode Phone Number [facility] DEPARTMENT OF PATHOLOGY [address] [place] [address] Transfuse fresh frozen plasma (06/25/2018 5:21 AM CDT)Only the most recent of3 resultswithin the time period is included.Ionized calcium, arterial (06/25/2018 12:08 AM CDT)Only the most recent of2 resultswithin the time period is included. Ionized calcium, 1.17 1.11 - 1.32 [facility] arterial mmol/L [facility] Specimen Blood Performing Organization Address [facility] Phone Number [facility] DEPARTMENT OF PATHOLOGY [address] [place] [address] Arterial blood gas (06/25/2018 12:08 AM CDT) pH, arterial 7.35 7.35 - 7.45 [facility] pCO2, arterial 44 35 - 45 mmHg [facility] pO2, arterial 197 (H) 80 - 90 mmHg [facility] Bicarbonate, 23.4 21.0 - 28.0 [facility] arterial mmol/L [facility] Base excess, -2 -2 - 2 mEq/L [facility] O2 saturation, 99 95 - 100 % [facility] Specimen Blood Performing Organization Address City/[facility]/Zipcode Phone Number [facility] DEPARTMENT OF PATHOLOGY [address] [place] [address] Sodium level, syringe (06/24/2018 10:27 PM CDT) Sodium, syringe 132 125 - 148 mEq/L [facility] Specimen Blood Performing Organization Address City/State/Zipcode Phone Number [facility] DEPARTMENT OF PATHOLOGY [address] [place] [address] [place] [address] HOSPITAL Potassium, syringe (06/24/2018 10:27 PM CDT) Potassium, syringe 3.7 3.5 - 5.0 mEq/L [facility] Specimen Blood Performing Organization Address City/State/Zipcode Phone Number [facility] DEPARTMENT OF PATHOLOGY [address] [place] [address] AND [address] [address] Hemoglobin, syringe (06/24/2018 10:27 PM CDT) Hemoglobin, syringe 7.8 (L) 12.0 - 16.0 g/dL [facility] Specimen Blood Performing Organization Address City/State/Zipcode Phone Number [facility] DEPARTMENT OF PATHOLOGY [address] [place] [address] Glucose level, syringe (06/24/2018 10:27 PM CDT) Glucose, syringe 59 (L) 65 - 99 mg/dL [facility] Specimen Blood Performing Organization Address City/[facility]/Zipcode Phone Number [facility] DEPARTMENT OF PATHOLOGY [address] [place] [address] Arterial blood gas, corrected (06/24/2018 10:27 PM CDT) pH, arterial 7.37 7.35 - 7.45 [facility] pCO2, arterial 50 (H) 35 - 45 mmHg [facility] pO2, arterial 318 (H) 80 - 90 mmHg [facility] Temperature, Celsius 35.0 Degrees C [facility] O2 saturation, 99 95 - 100 % [facility] pH, arterial 7.40 [facility] pCO2, arterial 45 mmHg [facility] pO2, arterial 309 mmHg [facility] Base excess, arterial 3 (H) -2 - 2 mEq/L [facility] Specimen Blood Performing Organization Address City/State/Zipcode Phone Number [facility] DEPARTMENT OF PATHOLOGY [id number] [place] [address] Hepatitis B surface antigen (06/23/2018 9:07 AM CDT) Hepatitis B surface Non-reactive Non-reactive [facility] Specimen Blood Performing Organization Address [facility] Phone Number [facility] DEPARTMENT OF PATHOLOGY [address] [place] [address] ECG 12 lead (06/22/2018 5:03 PM CDT) Ventricular rate 63 [facility] Atrial rate 63 [facility] M[facility] MD interval 146 [facility] MUSE QRSD interval 92 [facility] QT interval 426 [facility] QTC interval 435 [facility] P axis 1 37 [facility] QRS axis 1 13 [facility] T wave axis [address] [facility] MUSE EKG impression Normal sinus rhythm-RSR' or QR pattern in V1 suggests right ventricular conduction delay-Minimal voltage criteria for LVH, may be normal variant-ST & T wave abnormality, consider lateral ischemia-Abnormal ECG-In automated comparison with ECG of [facility] 08-SEP-2017 11:14,-RSR' pattern in V1 is now present- Specimen Narrative Performed At Performing Organization Address City/[facility]/Zipcode Phone Number [facility] MUSE [address] [place] [address] [place] < 1 Hour (06/22/2018 4:30 PM CDT) Specimen Narrative Performed At EXAMINATION:OR [place] 1 HOUR RADIANT CLINICAL HISTORY:None provided IMPRESSION: Fluoroscopy was provided. No radiologist present.Please see procedure report for discussion of procedure, findings and fluoroscopic time. [facility]-[id number] Procedure Note Hm Interface, Radiology Results Incoming - 06/22/2018 6:52 PM CDT EXAMINATION: [place] 1 HOUR CLINICAL HISTORY: None provided IMPRESSION: Fluoroscopy was provided. No radiologist present. Please see procedure report for discussion of procedure, findings and fluoroscopic time. [facility]-[id number] Performing Organization Address City/State/Zipcode Phone Number [facility] [address] [place] [address] Surgical pathology request (06/22/2018 3:32 PM CDT) [facility] DEPARTMENT OF PATHOLOGY AND GENOMIC MEDICINE Surgical pathology See link below [facility] DEPARTMENT OF report for PDF Lab PATHOLOGY AND Report GENOMIC MEDICINE Result status This is Final [facility] DEPARTMENT OF Report for PATHOLOGY AND [id number] GENOMIC MEDICINE Specimen Performing Organization Address City/[facility] Phone Number [facility] DEPARTMENT OF PATHOLOGY [address] [place] [address] AND GENOMIC [facility] Total iron binding capacity (06/22/2018 6:40 AM CDT) Iron level 58 37 - 145 ug/dL [facility] Iron binding capacity 229 (L) 260 - 460 ug/dL [facility] % Saturation 25.3 15.0 - 38.0 % [facility] Specimen Plasma specimen Performing Organization Address [facility] Phone Number [facility] DEPARTMENT OF PATHOLOGY [address] [place] [address] AND GENOMIC MEDICINE [facility] [id number] [place] [address] HOSPITAL Prepare platelet pheresis, 1 Units (06/22/2018 6:40 AM CDT)Only the most recent of3 resultswithin the time period is included. Product name Apheresis PLT, [facility] Leukored IRR #2 [facility] Unit number [id number] [facility] Product code [id number] [facility] Dispense status Transfused [facility] Blood expiration [id number] [facility] Blood type code 7300 [facility] Blood type B POSITIVE [facility] Specimen Blood Performing Organization Address City/State/Zipcode Phone Number [facility] DEPARTMENT OF PATHOLOGY [address] [place] [address] AND [facility] [id number] [place] [address] Prepare fresh frozen plasma, 2 Units (06/22/2018 6:40 AM CDT) Product name Thawed Plasma [facility] Unit number [id number] [facility] Product code [id number] [facility] Dispense status Transfused [facility] Blood expiration date [facility] Blood type [facility] 5100 [facility] Blood type O POSITIVE [facility] Product [facility] Thawed Plasma [facility] Unit number [id number] [facility] Product code [id number] [facility] Dispense status Transfused [facility] Blood expiration date [facility] Blood type code 5100 [facility] Blood type O POSITIVE [facility] Specimen Blood Performing Organization Address City/State/Zipcode Phone Number [facility] DEPARTMENT OF PATHOLOGY [id number] [place] [address] AND [facility] [address] [place] [address] HOSPITAL Folate level (06/22/2018 6:40 AM CDT) Folate 14.8 4.8 - 24.2 ng/mL [facility] Specimen Serum Performing Organization Address City/State/Zipcode Phone Number [facility] DEPARTMENT OF PATHOLOGY AND [address] [place] [address] Ferritin level (06/22/2018 6:40 AM CDT) Ferritin level 1,948 (H) 13 - 150 ng/mL [facility] Specimen Plasma specimen Performing Organization Address City/[facility]/Zipcode Phone Number [facility] DEPARTMENT OF PATHOLOGY AND [address] [place] [address] [address] Vitamin B12 level (06/22/2018 6:40 AM CDT) Vitamin B12 >1600 (H) 791 - 229 [facility] Comment: pg/mL HOSPITAL Significant overlap exists between normal and deficiency states. However, most patients with deficiencies will have Serum B12 <200 pg/mL. Specimen Serum Performing Organization Address City/[facility]/Zipcode Phone Number [facility] DEPARTMENT OF PATHOLOGY AND [address] [place] [address] GENOMIC MEDICINE [facility] [address] [place] [address] XR Chest 2 Vw (06/21/2018 6:50 PM CDT) Specimen Narrative Performed At [facility]21[facility]2018 [facility] Clinical history:Pneumonia Technique: PA and lateral views [...] of pneumonia. Performing Organization Address [facility] Phone Number [facility] [address] [place] [address] XR Abdomen 1 Vw (06/21/2018 3:57 PM CDT) Specimen Narrative Performed At EXAMINATION: XR ABDOMEN 1 VW RADIANT INDICATION: Nauseavomiting COMPARISON: None IMPRESSION: Nonobstructive bowel gas pattern. Scattered vascular calcifications. Scattered degenerative osseous changes. [id number] Procedure Note Interface, Radiology Results Incoming - 06/21/2018 4:12 PM CDT EXAMINATION: XR ABDOMEN 1 VW INDICATION: Nausea vomiting COMPARISON: None IMPRESSION: Nonobstructive bowel gas pattern. Scattered vascular calcifications. Scattered degenerative osseous changes. [id number] Performing Organization Address City/[facility]/Zipcode Phone Number [facility] [address] [place] [address] Uric acid level (06/21/2018 3:45 PM CDT) Uric acid 2.3 (L) 2.4 - 5.7 mg/dL [facility] Specimen Blood Performing Organization Address City/State/Zipcode Phone Number [facility] DEPARTMENT OF PATHOLOGY [address] [place] [address] Thyroid stimulating hormone (06/21/2018 3:45 PM CDT) TSH 2.15 0.27 - 4.20 uIU/mL [facility] Specimen Blood Performing Organization Address City/State/Zipcode Phone Number [facility] DEPARTMENT OF PATHOLOGY [address] [place] [address] T4, free (06/21/2018 3:45 PM CDT) T4, free 1.2 0.9 - 1.7 ng/dL [facility] Specimen Blood Performing Organization Address City/[facility]/Zipcode Phone Number [facility] DEPARTMENT OF PATHOLOGY [address] [place] [address] [place] [address] HOSPITAL Prealbumin level (06/21/2018 3:45 PM CDT) Prealbumin 19 16 - 32 mg/dL [facility] Specimen Serum Performing Organization Address City/[facility]/Zipcode Phone Number [facility] DEPARTMENT OF PATHOLOGY AND [address] [place] [address] [address] B natriuretic peptide (06/21/2018 3:45 PM CDT) BNP 1,439 (H) 0 - 100 pg/mL [facility] Specimen Blood Performing Organization Address City/[facility]/Zipcode Phone Number [facility] DEPARTMENT OF PATHOLOGY [address] [place] [address] [place] [address] HOSPITAL Lactic acid level (06/21/2018 3:45 PM CDT) Lactic acid 1.1 0.5 - 2.2 mmol/L [facility] Specimen Plasma specimen Performing Organization Address City/State/Zipcode Phone Number [facility] DEPARTMENT OF PATHOLOGY [address] [place] [address] [place] [address] HOSPITAL Hemoglobin A1c (06/21/2018 3:45 PM CDT)Only the most recent of2 resultswithin the time period is included. Hemoglobin A1C 7.2 (H) 4.0 - 5.6 % [facility] Comment: [facility] HbA1c cutoffs for diagnosing diabetes: HOSPITAL 4.0% - 5.6%=normal 5.7% - 6.4%=increased risk for diabetes (prediabetes) >=6.5%=diabetes Goals for glycemic control (ADA 2016) < 7.0%Target for non adults with diabetes. More or less stringent targets may be appropriate for individual patients. <7.5% Target for Children and adolescents with type 1 diabetes. Specimen Blood Performing Organization Address City/State/Zipcode Phone Number [facility] DEPARTMENT OF PATHOLOGY [address] [place] [address] [place] [address] HOSPITAL Creatine kinase, total (CPK) (06/21/2018 3:45 PM CDT) Creatine kinase 115 26 - 192 U/L [facility] Specimen Blood Performing Organization Address City/[facility]/Zipcode Phone Number [facility] DEPARTMENT OF PATHOLOGY [address] [place] [address] [place] [address] HOSPITAL Amylase level (06/21/2018 3:45 PM CDT) Amylase 28 13 - 73 U/L [facility] Specimen Blood Performing Organization Address City/State/Zipcode Phone Number [facility] DEPARTMENT OF PATHOLOGY [address] [place] [address] [place] [address] HOSPITAL Lipid panel (06/21/2018 3:45 PM CDT) Cholesterol 129 0 - 199 [place] mg/dL [facility] Triglycerides 154 (H) 0 - 149 [place] mg/dL [facility] HDL cholesterol 32 (L) 40 - 99,999 [place] mg/dL [facility] LDL cholesterol 65 0 - 99 mg/dL [facility] Lipid panel See below [place] interpretation Comment: [facility] Total Cholesterol (mg/dL) [facility] <200 Desirable 205-127Ntbmilqady-rvcq >=240High Triglycerides (mg/dL) <150 Normal 559-654Udehulgpzv-unln 200-499High >=500Very high HDL Cholesterol (mg/dL) <40Low (male) <50Low (female) LDL Cholesterol (mg/dL) <100 Optimal 100-129Near or above optimal [phone]-udco 160-189High >=190Very high Risk Catergories that modify [...] Blood Performing Organization Address City/State/Zipcode Phone Number [facility] DEPARTMENT OF PATHOLOGY [address] [place] [address] AND GENOMIC MEDICINE [facility] [address] CTA Abdomen Pelvis W And Or [...] spleen. Fatty infiltration of the pancreas. 4.The hamilton kidneys are atrophic. Hypoattenuating lesion in the [...] or flow-limiting stenosis. 2.Other findings as above. [id number] Procedure Note Interface, Radiology Results Incoming - [...] Fatty infiltration of the pancreas. 4. The [place] kidneys are atrophic. Hypoattenuating lesion in the [...] flow-limiting stenosis. 2. Other findings as above. [facility]-[id number] Performing Organization Address City/State/Zipcode Phone Number [facility] [address] [place] [address] Mammo Diagnostic w Cad Bilateral (11/15/2017 1:36 [...] [id number] Performing Organization Address City/State/Zipcode Phone Number [facility] [address] [place] [phone] Low resolution full typing by SSO (11/15/2017 7:18 AM CDT) [facility] DEPARTMENT OF PATHOLOGY AND GENOMIC MEDICINE Low resolution full See link below [facility] DEPARTMENT OF typing by SSO for PDF Lab PATHOLOGY AND Report GENOMIC MEDICINE Specimen Performing Organization Address City/[facility] Phone Number [facility] DEPARTMENT OF PATHOLOGY AND [address] [place] [address] GENOMIC [facility] C1Q class 1 & 2 antibody (11/15/2017 7:18 AM CDT) [facility] DEPARTMENT OF PATHOLOGY AND GENOMIC MEDICINE C1Q class 1 & [address] [facility] DEPARTMENT OF antibody for PDF Lab PATHOLOGY AND Report GENOMIC MEDICINE Specimen Performing Organization Address [facility] Phone Number [facility] DEPARTMENT OF PATHOLOGY AND [address] [place], [place] [phone] [facility] HSV 1 & 2 glycoprotein G Ab, IgG (11/15/2017 7:18 AM CDT) Pathologist [facility] HSV 1 glycoprotein G Positive (A) Negative [facility] DEPARTMENT OF Ab, IgG Comment: PATHOLOGY AND Positive results may indicate current or past HSV infection. GENOMIC MEDICINE For acute illness, viral PCR and IgM testing are recommended. Individuals infected with HSV may not exhibit detectable antibodies in cases of early infection. HSV 2 glycoprotein G Positive (A) Negative [facility] DEPARTMENT OF Ab, IgG Comment: PATHOLOGY AND Positive results may indicate current or past HSV infection. GENOMIC MEDICINE For acute illness, viral PCR and IgM testing are recommended. Individuals infected with HSV may not exhibit detectable antibodies in cases of early infection. Specimen Serum Performing Organization Address [facility]/Zipcode Phone Number [facility] DEPARTMENT OF PATHOLOGY AND [address] [place] [address] [facility] Enzo-Monroy virus antibody test (11/15/2017 7:18 AM CDT) EBV Ab to viral capsid Positive (A) Negative [facility] DEPARTMENT OF Ag, IgG PATHOLOGY AND GENOMIC MEDICINE EBV Ab to viral capsid Negative Negative [facility] DEPARTMENT OF Ag, IgM PATHOLOGY AND GENOMIC MEDICINE EBV Ab to nuclear Ag, Positive (A) Negative [facility] DEPARTMENT OF IgG PATHOLOGY AND GENOMIC MEDICINE EBV Ab to early (D) Negative Negative [facility] DEPARTMENT OF Ag, IgG PATHOLOGY AND GENOMIC MEDICINE Enzo-Monroy virus SEE [facility] DEPARTMENT OF antibody COMMENTComment: PATHOLOGY AND interpretation Infection Status: GENOMIC MEDICINE Results may suggest past EBV infection. Specimen Serum Performing Organization Address City/State/Zipcode Phone Number [facility] DEPARTMENT OF PATHOLOGY AND [address] [place] [address] [facility] MEDICINE Single antigen beads (11/15/2017 7:18 AM CDT) [facility] DEPARTMENT OF PATHOLOGY AND GENOMIC MEDICINE Single antigen See link below [facility] DEPARTMENT OF beads for PDF Lab PATHOLOGY AND Report GENOMIC MEDICINE Specimen Performing Organization Address City/State/Zipcode Phone Number [facility] DEPARTMENT OF PATHOLOGY AND [address] [place] [address] [facility] HSV type 1/2 combined Ab, IgM (11/15/2017 7:18 AM CDT) [facility] HSV 1/2 combined 0.70 <=0.89 IV [facility] Ab, IgM Comment: INTERPRETIVE INFORMATION: [...] than 12 months post- infection. Performed by [employer], [address] [place], [place] [id number] [email or web address], Von Villar MD - Lab. Director Specimen Serum Performing Organization Address City/State/Zipcode Phone Number [facility] [address] [place] [address] HLA autologous crossmatch, AHG (11/15/2017 7:18 AM CDT) [facility] DEPARTMENT OF PATHOLOGY AND GENOMIC MEDICINE HLA autologous See link below [facility] DEPARTMENT OF crossmatch for PDF Lab PATHOLOGY AND Report GENOMIC MEDICINE Specimen Performing Organization Address City/State/Zipcode Phone Number [facility] DEPARTMENT OF PATHOLOGY AND [address] [place] [phone] [place] [address] Herpes simplex virus by PCR (11/15/2017 7:18 AM CDT) Pathologist [facility] Herpes virus, PCR Not-Detected Not-Detected [facility] DEPARTMENT OF PATHOLOGY AND GENOMIC MEDICINE Herpes virus, PCR See link below [facility] DEPARTMENT OF for PDF Lab PATHOLOGY AND ReportComment: [email or web address] MEDICINE Specimen Performing Organization Address City/State/[facility] Phone Number [facility] DEPARTMENT OF PATHOLOGY AND [address] [place] [address] Estimated GFR (11/15/2017 7:18 AM CDT) Pathologist [facility] GFR Non Af Amer 11 (A) mL/min/1.73 [facility] DEPARTMENT OF m2 PATHOLOGY AND [facility] MEDICINE GFR Af Amer 13 (A) mL/min/1.73 [facility] DEPARTMENT OF Comment: m2 PATHOLOGY AND Chronic [...] Americans. Specimen Plasma specimen Performing Organization Address City/[facility] Phone Number [facility] DEPARTMENT OF PATHOLOGY AND [address] [place] [address] Cytomegalovirus Ab, IgM (11/15/2017 7:18 AM CDT) Pathologist [facility] Cytomegalovirus Ab, IgM NegativeComment: Negative [facility] DEPARTMENT OF Negative: CMV IgM PATHOLOGY AND antibodies were GENOMIC MEDICINE not detected. Specimen Serum Performing Organization Address City/[facility]/Zipcode Phone Number [facility] DEPARTMENT OF PATHOLOGY AND [address] [place] [address] [facility] ABORh - transplant (11/15/2017 7:18 AM CDT) Pathologist [facility] ABO grouping O [facility] DEPARTMENT OF PATHOLOGY AND GENOMIC MEDICINE Rh type POS [facility] DEPARTMENT OF PATHOLOGY AND GENOMIC MEDICINE Specimen Blood Performing Organization Address City/State/Zipcode Phone Number [facility] DEPARTMENT OF PATHOLOGY AND [address] [place] [address] MEDICINE Cytomegalovirus Ab, IgG (11/15/2017 7:18 AM CDT) Cytomegalovirus Ab, IgG Positive (A) Negative [facility] DEPARTMENT OF Comment: PATHOLOGY AND Positive; IgG antibody to CMV detected which may indicate GENOMIC MEDICINE exposure to CMV infection. Specimen Serum Performing Organization Address [facility] Phone Number [facility] DEPARTMENT OF PATHOLOGY AND [address] [place] [address] MEDICINE Triglycerides (11/15/2017 7:18 AM CDT) Triglycerides 103 <150 mg/dL [facility] DEPARTMENT OF PATHOLOGY AND GENOMIC MEDICINE Specimen Plasma specimen Performing Organization Address [facility] Phone Number [facility] DEPARTMENT OF PATHOLOGY AND [address] [place] [address] Parathyroid hormone (11/15/2017 7:18 AM CDT) PTH 278 (H) 15 - 65 pg/mL [facility] DEPARTMENT OF PATHOLOGY AND GENOMIC MEDICINE Specimen Blood Performing Organization Address [facility] Phone Number [facility] DEPARTMENT OF PATHOLOGY AND [address] [place] [address] MEDICINE LDH (11/15/2017 7:18 AM CDT) LDH 304 (H) 87 - 225 U/L [facility] DEPARTMENT OF PATHOLOGY AND GENOMIC MEDICINE Specimen Plasma specimen Performing Organization Address [facility] Phone Number [facility] DEPARTMENT OF PATHOLOGY AND [address] [place] [address] MEDICINE Fasting glucose level (11/15/2017 7:18 AM CDT) Glucose, fasting 176 (H) 65 - 99 mg/dL [facility] DEPARTMENT OF PATHOLOGY AND GENOMIC MEDICINE Specimen Blood Performing Organization Address [facility] Phone Number [facility] DEPARTMENT OF PATHOLOGY AND [address] [place] [address] MEDICINE Creatinine level (11/15/2017 7:18 AM CDT) Creatinine 4.1 (H) 0.5 - 0.9 mg/dL [facility] DEPARTMENT OF PATHOLOGY AND GENOMIC MEDICINE Specimen Plasma specimen Performing Organization Address [facility] Phone Number [facility] DEPARTMENT OF PATHOLOGY AND [address] [place] [address] MEDICINE Cholesterol (11/15/2017 7:18 AM CDT) Cholesterol 184 <200 mg/dL [facility] DEPARTMENT OF PATHOLOGY AND GENOMIC MEDICINE Specimen Plasma specimen Performing Organization Address City/State/Zipcode Phone Number [facility] DEPARTMENT OF PATHOLOGY AND [address] [place] [address] GENOMIC MEDICINE Occult blood, stool (11/14/2017 8:00 AM CDT)Only the most recent of3 resultswithin the time period is included. Occult blood, Negative for occult blood. [facility] DEPARTMENT OF stool Comment: PATHOLOGY AND Specimen Information GENOMIC MEDICINE Specimen Source: Stool Specimen Site: Nonpreserved Specimen Stool - Nonpreserved Performing Organization Address City/State/Zipcode Phone Number [facility] DEPARTMENT OF PATHOLOGY AND [address] [place] [address] GENOMIC MEDICINE after 10/11/2017 Insurance Payer Benefit Plan / Subscriber ID Effective Dates Phone Address Type Group MEDICARE MEDICARE PART A xxxxxxxxxxx 2014-Present [place], [place] Medicare AND B MEDICAID MEDICAID xxxxxxxxx 2018-Present Medicaid (Home) [address] [place] [address] #[facility] [place] [address] Qiana Valdez Trans[facility] Self [address] [place] [address] (Home) [id number] [place] [address] Advance Directives Patient has advance care planning documents, and code status on file. For more information, please contact:Sandor Lewis[address] [place] [address] Code Status Date Activated Date Inactivated Comments Full Code 06/21/2018 3:48 PM 07/05/2018 4:23 PM Code Status decision reached by: Patient
--- NOTE | 2018-10-12 12:40 | ER ---
Nurse's Notes [facility] Name: Qiana Valdez Age: 63 yrs Sex: Female : 1955 Arrival Date: 10/12/2018 Time: 10:37 Bed 5 Private MD: Diagnosis: Dialysis cath bleeding - controlled/resolved Presentation: 10/12 11:02 Presenting complaint: Patient states: D/C from hospital last night, states, " I was ph admitted for chest pain and Dr Bah noticed a stitch hanging out by my dialysis catheter so he took it out and it hasn't stopped bleeding since." Catheter noted to L upper chest, bleeding noted under dressing, dialysis days //, denies fever or SOB, catheter placed 06/18. Transition of care: patient was not received from another setting of care. Onset of symptoms was October 12, 2018. Risk Assessment: Do you want to hurt yourself or someone else? Patient reports no desire to harm self or others. Initial Sepsis Screen: Does the patient meet any 2 criteria? No. Patient's initial sepsis screen is negative. Does the patient have a suspected source of infection? No. Patient's initial sepsis screen is negative. Care prior to arrival: None. 11:02 Method Of Arrival: Ambulatory ph 11:02 Acuity: SIXTO 3 ph Historical: - Allergies: 11:07 No Known Allergies; ph - PMHx: 11:07 Chronic ischemic heart disease; Diabetes - IDDM; ESRD; GERD; High Cholesterol; ph hyperparathyroidism; Hypertension; IRON DEFICIENCY ANEMIA; - Immunization history:: Adult Immunizations unknown. - Social history:: Smoking status: Patient/guardian denies using tobacco. - Ebola Screening: : No symptoms or risks identified at this time. Vital Signs: 11:06 BP 182 / 70; Pulse 65; Resp 18; Temp 98.1; Pulse Ox 100% on R/A; Weight 69 kg; Height 5 ph ft. 3 in. (160.02 cm); Pain 6/10; 11:06 Body Mass Index 26.95 (69.00 kg, 160.02 cm) ph ED Course: 10:37 Patient arrived in ED. as 11:06 Triage completed. ph 11:06 Arm band placed on Patient placed in an exam room, on a stretcher, on monitoring specialist, ph on pulse oximetry. 11:37 Rittger, Rory, MD is Attending Physician. kdr 11:37 Karoline Mcarthur FNP-C is [facility]. snw 13:00 Ricci Adames, RN is Primary Nurse. sg Administered Medications: No medications were administered Outcome: 12:40 Discharge ordered by . kdr 13:00 Patient left the ED. sg Signatures: Ricci Adames RN RN sg Rory Connors MD MD [facility] Karoline Mcarthur FNP-C FIRST AID ATTENDANT-[facility] Lynda Bah Patricia, RN RN ph
--- NOTE | 2018-10-12 12:40 | EDPHYS ---
Physician Documentation [facility] Name: Qiana Valdez Age: 63 yrs Sex: Female : 1955 Arrival Date: 10/12/2018 Time: 10:37 Bed 5 Private MD: ED Physician Rory Connors HPI: 10/12 12:27 This 63 yrs old Female presents to ER via Ambulatory with complaints of kdr Bleeding from the dialysis cath insertion site. 12:27 The patient had dialysis yesterday and since then, she has had bleeding from the kdr dialysis cath insertion site on the left anterior chest.. Onset: The symptoms/episode began/occurred suddenly, 9:00 PM yesterday. Severity of symptoms: At their worst the symptoms were mild last night, yesterday, in the emergency department the symptoms Blood has saturated the dressing around the cath tips and the insertion site. The patient has not experienced similar symptoms in the past. The patient has not recently seen a physician. Has had a cath at this site since June. Historical: - Allergies: 11:07 No Known Allergies; ph - PMHx: 11:07 Chronic ischemic heart disease; Diabetes - IDDM; ESRD; GERD; High Cholesterol; ph hyperparathyroidism; Hypertension; IRON DEFICIENCY ANEMIA; - Immunization history:: Adult Immunizations unknown. - Social history:: Smoking status: Patient/guardian denies using tobacco. - Ebola Screening: : No symptoms or risks identified at this time. ROS: 12:27 Constitutional: Negative for fever, chills, and weight loss, Cardiovascular: Negative kdr for chest pain, palpitations, and edema, Respiratory: Negative for shortness of breath, cough, wheezing, and pleuritic chest pain. 12:27 Skin: Positive for Bleeding from site around dialysis cath. Exam: 12:27 Constitutional: This is a well developed, well nourished patient who is awake, alert, kdr and in no acute distress. 12:27 Chest/axilla: Inspection: There is a dialysis cath in place on the chest wall/left apex. The dressing is moderately saturated with blood and there are clots where the cath enters the skin. No apparent active bleeding at this time.. Vital Signs: 11:06 BP 182 / 70; Pulse 65; Resp 18; Temp 98.1; Pulse Ox 100% on R/A; Weight 69 kg; Height 5 ph ft. 3 in. (160.02 cm); Pain 6/10; 11:06 Body Mass Index 26.95 (69.00 kg, 160.02 cm) ph Procedures: 12:35 Performed The dressing on the cath was taken down and the chest wall and dialysis cath kdr was cleaned. The tips appeared to be in good condition. The site was left open for five or more minutes to ensure that no further bleeding was occurring. The cath appeared to be in good condition overall. As no bleeding was occurring, the cath was redressed and the patient was readied for discharge. MDM: 12:38 Data reviewed: vital signs, nurses notes. Counseling: I had a detailed discussion with kdr the patient and/or guardian regarding: the historical points, exam findings, and any diagnostic results supporting the discharge/admit diagnosis, the need for outpatient follow up. 12:40 Patient medically screened. kdr Administered Medications: No medications were administered Disposition: 10/12/18 12:40 Discharged to Home. Impression: Dialysis cath bleeding - controlled/resolved. - Condition is Stable. - Discharge Instructions: Central Line Dialysis Access Placement, Care After. - Medication Reconciliation Form, Thank You Letter form. - Follow up: Private Physician; When: 2 - 3 days; Reason: If symptoms return, Further diagnostic work-up, Recheck today's complaints, Continuance of care, Re-evaluation by your physician. - Problem is new. - Symptoms have improved. Signatures: Ricci Adames RN RN sg Rory Connors MD MD kdr Lacey Saenz RN RN ph Corrections: (The following items were deleted from the chart) 13:00 12:40 10/12/2018 12:40 Discharged to Home. Impression: Dialysis cath bleeding - sg controlled/resolved. Condition is Stable. Forms are Medication Reconciliation Form, Thank You Letter, Antibiotic Education, Prescription Opioid Use. Follow up: Private Physician; When: 2 - 3 days; Reason: If symptoms return, Further diagnostic work-up, Recheck today's complaints, Continuance of care, Re-evaluation by your physician. Problem is new. Symptoms have improved. kdr
[2018-10-12 13:33] VITALS: BP 182/70; TEMP 98.1; O2SAT 100
== END 2018-10-12 13:00 | disposition home or self-care (01) ==
LOC: ER 10:35
DX: T82.838A Hemorrhage due to vascular prosthetic devices, implants and grafts, initial encounter (principal); I12.0 Hypertensive chronic kidney disease with stage 5 chronic kidney disease or end stage renal disease; E11.22 Type 2 diabetes mellitus with diabetic chronic kidney disease; N18.6 End stage renal disease; I25.9 Chronic ischemic heart disease, unspecified; Z99.2 Dependence on renal dialysis
CPT/HCPCS: 99282

== ENCOUNTER 2019-01-25 20:39 | Emergency (ER) | payer OTHER ==
[2019-01-25] MEDS ORDERED: IPRATROPIUM BROM 0.5MG/2.5ML ONE (22:41)
[2019-01-25] MEDS ORDERED: ALBUTEROL 2.5 MG/3 ML NEB SOL ONE (22:41)
[2019-01-25] MEDS ORDERED: HYDROCODONE/CHLORPHEN 5 ML/OSYR ONE (22:42)
[2019-01-25 23:20] LABS: Absolute Lymphocytes (CBC) 0.6 K/uL (0.7-4.9); Basophils % 1.5 % (0-1.3); Hematocrit 35.7 % (36.0-45.0); MPV 9.2 fL (7.6-11.3); RBC Red Blood Cell Count 3.64 M/uL (3.86-4.86)
[2019-01-25 23:37] LABS: Potassium 4.7 mmol/L (3.5-5.1)
[2019-01-26 00:11] LABS: Platelet Estimate DECR; Urine White Blood Cell Casts OK
[2019-01-26 00:12] LABS: Blood Morphology Comment NOT SEEN (NOT SEEN)
[2019-01-26] MEDS ORDERED: ACETAMINOPHEN 500 MG TAB ONE (00:36)
--- NOTE | 2019-01-26 00:37 | ER ---
Nurse's Notes [facility] Name: Qiana Valdez Age: 63 yrs Sex: Female : 1955 Arrival Date: 01/25/2019 Time: 20:42 Bed 8 Private MD: Diagnosis: Acute upper respiratory infection, unspecified Presentation: 01/25 20:48 Presenting complaint: Patient states: Cough, shortness of breath and fever for the past aj1 2 days. TMax 101.3 Patient reports that Tylenol for fever at 1400 today. Transition of care: patient was not received from another setting of care. Onset of symptoms was January 2019. Risk Assessment: Do you want to hurt yourself or someone else? Patient reports no desire to harm self or others. Initial Sepsis Screen: Does the patient meet any 2 criteria? No. Patient's initial sepsis screen is negative. Does the patient have a suspected source of infection? Yes: Productive cough/pneumonia. Care prior to arrival: None. 20:48 Method Of Arrival: Ambulatory aj1 20:48 Acuity: SIXTO 4 aj1 Triage Assessment: 20:51 General: Appears in no apparent distress. comfortable, Behavior is calm, cooperative, aj1 appropriate for age. Pain: Pain currently is 6 out of 10 on a pain scale. Neuro: Level of Consciousness is awake, alert, obeys commands. Cardiovascular: Patient's skin is warm and dry. Respiratory: Airway is patent Respiratory effort is even, unlabored, Respiratory pattern is regular, symmetrical. Historical: - Allergies: 20:50 No Known Allergies; aj1 - Home Meds: 20:50 atorvastatin 40 mg Oral tab 1 tab once daily [Active]; doxazosin 4 mg Oral tab twice a aj1 day [Active]; Fosrenol 1,000 mg Oral pwpk 1 packet 3 times per day [Active]; hydralazine 100 mg Oral tab Q8H [Active]; Lactulose 30 gm daily until bowels move and then stop taking prn Oral [Active]; carvedilol 6.25 mg oral tab 1 tab 2 times per day [Active]; lisinopril 20 mg Oral tab 1 tab twice a day [Active]; Nifedipine ER Oral 60 mg twice a day [Active]; pantoprazole 40 mg Oral TbEC 1 tab once daily [Active]; Renvela 4 tabs TID Oral [Active]; Senexon 8.6 mg Oral tab twice a day [Active]; - PMHx: 20:50 Chronic ischemic heart disease; Diabetes - IDDM; ESRD; GERD; High Cholesterol; aj1 hyperparathyroidism; Hypertension; IRON DEFICIENCY ANEMIA; - Immunization history:: Flu vaccine is not up to date. - Social history:: Smoking status: Patient/guardian denies using tobacco. - Ebola Screening: : Patient denies travel to an Ebola-affected area in the 21 days before illness onset. Screenin/25 00:48 Abuse screen: Denies threats or abuse. Denies injuries from another. Nutritional ak1 screening: No deficits noted. Tuberculosis screening: No symptoms or risk factors identified. Fall Risk None identified. Assessment: 01/25 23:46 General: Appears in no apparent distress. Behavior is calm, cooperative. ak1 01/26 00:19 Neuro: Level of Consciousness is awake, alert, Oriented to person, place, time, ak1 situation, Moves all extremities. Speech is normal. Cardiovascular: No deficits noted. Respiratory: Reports cough that is non-productive, Airway is patent Respiratory effort is even, unlabored, Breath sounds are clear. GI: No signs and/or symptoms were reported involving the gastrointestinal system. : No signs and/or symptoms were reported regarding the genitourinary system. EENT: runny nose with congestion. 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 Musculoskeletal: No signs and/or symptoms reported regarding the musculoskeletal system. Vital Signs: 01/25 20:51 BP 181 / 77; Pulse 70; Resp 18; Temp 97.6; Pulse Ox 98% on R/A; Weight 73 kg (R); aj1 Height 5 ft. 3 in. (160.02 cm) (R); 01/26 00:19 BP 163 / 76; Pulse 95; Resp 16; Temp 101.3(O); Pulse Ox 96% on R/A; ak1 00:47 BP 161 / 77; Pulse 65; Resp 16; Pulse Ox 97% on R/A; ak1 01/25 20:51 Body Mass Index 28.51 (73.00 kg, 160.02 cm) aj1 ED Course: 01/25 20:42 Patient arrived in ED. ag3 20:49 Triage completed. aj1 20:51 Arm band placed on Patient placed in waiting room, Patient notified of wait time. aj1 22:11 Duane Whyte PA is PHCP. cp 22:11 Galen Sims MD is Attending Physician. cp 22:12 Chest Pa And Lat (2 Views) XRAY In Process Unspecified. EDMS 22:19 Shelli Perla, RN is Primary Nurse. ak1 23:37 Notified Nurse Practitioner and/or Physician Garnisher of a critical lab result(s), fc creat 6.36, calcium of 6.8. 23:46 Missed attempt(s): 24 gauge in left hand. Bleeding controlled, band aid applied, ak1 catheter tip intact. 01/26 00:35 Wild Bustamante MD is Referral Physician. cp 00:48 Patient has correct armband on for positive identification. Bed in low position. Call ak1 light in reach. Side rails up X2. Adult w/ patient. 00:48 Patient did not have IV access during this emergency room visit. ak1 00:48 No provider procedures requiring assistance completed. ak1 Administered Medications: 01/25 22:59 Drug: Tussionex Pennkinetic ER 5 ml Route: PO; ak1 23:17 Follow up: Response: No adverse reaction ak1 22:59 Drug: Albuterol 2.5 mg Route: Inhalation; ak1 22:59 Drug: AtroVENT Aerosol 0.5 mg Route: Inhalation; ak1 01/26 00:39 Drug: Tylenol 1000 mg Route: PO; ak1 00:39 Follow up: Response: No adverse reaction ak1 Outcome: 00:36 Discharge ordered by MD. cp 00:48 Discharged to home via wheelchair, with family. ak1 00:48 Condition: improved 00:48 Discharge instructions given to patient, family, Instructed on discharge instructions, follow up and referral plans. no drinking with medication, no driving heavy equipment, medication usage, Demonstrated understanding of instructions, follow-up care, medications, Prescriptions given X 2. 01:10 Patient left the ED. ak1 Signatures: Dispatcher [employer] EDMS Eve Andrew RN RN aj1 Lisa Farley RN RN fc Krenek, Amber RN RN ak1 Duane Whyte PA PA Tiara Golden
--- NOTE | 2019-01-26 00:37 | EDPHYS ---
Physician Documentation [facility] Name: Qiana Valdez Age: 63 yrs Sex: Female : 1955 Arrival Date: 01/25/2019 Time: 20:42 Bed 8 Private MD: ED Physician Galen Sims HPI: 01/25 22:30 This 63 yrs old Female presents to ER via Ambulatory with complaints of Cough. cp 22:30 The patient or guardian reports cough, that is intermittent, with no sputum. cp 22:30 Onset: The symptoms/episode began/occurred 5 day(s) ago. cp 22:30 Severity of symptoms: in the emergency department the symptoms are unchanged, despite cp home interventions. Associated signs and symptoms: Pertinent positives: fever, sore throat, Pertinent negatives: chest pain, diarrhea, vomiting. Historical: - Allergies: 20:50 No Known Allergies; aj1 - Home Meds: 20:50 atorvastatin 40 mg Oral tab 1 tab once daily [Active]; doxazosin 4 mg Oral tab twice a aj1 day [Active]; Fosrenol 1,000 mg Oral pwpk 1 packet 3 times per day [Active]; hydralazine 100 mg Oral tab Q8H [Active]; Lactulose 30 gm daily until bowels move and then stop taking prn Oral [Active]; carvedilol 6.25 mg oral tab 1 tab 2 times per day [Active]; lisinopril 20 mg Oral tab 1 tab twice a day [Active]; Nifedipine ER Oral 60 mg twice a day [Active]; pantoprazole 40 mg Oral TbEC 1 tab once daily [Active]; Renvela 4 tabs TID Oral [Active]; Senexon 8.6 mg Oral tab twice a day [Active]; - PMHx: 20:50 Chronic ischemic heart disease; Diabetes - IDDM; ESRD; GERD; High Cholesterol; aj1 hyperparathyroidism; Hypertension; IRON DEFICIENCY ANEMIA; - Immunization history:: Flu vaccine is not up to date. - Social history:: Smoking status: Patient/guardian denies using tobacco. - Ebola Screening: : Patient denies travel to an Ebola-affected area in the 21 days before illness onset. ROS: 22:35 Constitutional: Negative for body aches, chills, fever, poor PO intake. cp 22:35 Eyes: Negative for injury, pain, redness, and discharge. cp 22:35 ENT: Negative for drainage from ear(s), ear pain, sore throat, difficulty swallowing, difficulty handling secretions. 22:35 Cardiovascular: Negative for chest pain, edema, palpitations. 22:35 Respiratory: Positive for cough, "sounds productive", Negative for shortness of breath, wheezing. 22:35 Abdomen/GI: Negative for abdominal pain, vomiting, diarrhea, constipation, black/tarry stool, rectal bleeding. 22:35 Back: Negative for radiated pain. 22:35 Skin: Negative for rash. 22:35 Neuro: Negative for altered mental status, dizziness, headache, weakness. 22:35 All other systems are negative. Exam: 22:40 Head/Face: Normocephalic, atraumatic. cp 22:40 Constitutional: The patient appears in no acute distress, alert, awake, non-diaphoretic, non-toxic, well developed, well nourished. 22:40 Eyes: Periorbital structures: appear normal, Conjunctiva: normal, no exudate, no cp injection, Sclera: no appreciated abnormality, Lids and lashes: appear normal, bilaterally. 22:40 ENT: External ear(s): are unremarkable, Ear canal(s): are normal, clear, TM's: bulging, cp is not appreciated, bilaterally, dullness, bilaterally, erythema, is not appreciated, bilaterally, Nose: is normal, Mouth: Lips: moist, Oral mucosa: pink and intact, moist, Posterior pharynx: Airway: no evidence of obstruction, patent, swelling, is not appreciated, erythema, that is mild, exudate, is not appreciated. 22:40 Neck: ROM/movement: is normal, is supple, without pain, no range of motions limitations, no meningismus, no nuchal rigidity. 22:40 Chest/axilla: Inspection: normal, Palpation: is normal, no crepitus, no tenderness. 22:40 Cardiovascular: Rate: normal, Rhythm: regular, Edema: is not appreciated, JVD: is not appreciated. 22:40 Respiratory: the patient does not display signs of respiratory distress, Respirations: normal, no use of accessory muscles, no retractions, no splinting, no tachypnea, labored breathing, is not present, Breath sounds: bronchial sounds, that are mild, are heard diffusely, decreased breath sounds, are not appreciated, stridor, is not appreciated, + upper airway congestion. 22:40 Abdomen/GI: Inspection: abdomen appears normal, Bowel sounds: active, all quadrants, Palpation: abdomen is soft and non-tender, in all quadrants. 22:40 Back: pain, is absent, ROM is normal. 22:40 Skin: no rash present. 22:40 Neuro: Orientation: to person, place \\T\\ time. Mentation: is normal, Motor: moves all fours, strength is normal. 23:20 ECG was reviewed by the Attending Physician. Vital Signs: 20:51 BP 181 / 77; Pulse 70; Resp 18; Temp 97.6; Pulse Ox 98% on R/A; Weight 73 kg (R); aj1 Height 5 ft. 3 in. (160.02 cm) (R); 01/26 00:19 BP 163 / 76; Pulse 95; Resp 16; Temp 101.3(O); Pulse Ox 96% on R/A; ak1 00:47 BP 161 / 77; Pulse 65; Resp 16; Pulse Ox 97% on R/A; ak1 01/25 20:51 Body Mass Index 28.51 (73.00 kg, 160.02 cm) aj1 MDM: 01/25 22:24 Patient medically screened. 01/26 00:00 Differential Diagnosis: Bronchitis Influenza Otitis Media Viral Syndrome Pneumonia. cp 00:35 Data reviewed: vital signs, nurses notes, lab test result(s), EKG, radiologic studies, cp plain films, I have discussed the patient's presentation/case with the attending Emergency Department Physician; and as a result, I will discharge patient. 00:35 Test interpretation: by ED physician or midlevel provider: plain radiologic studies, cp chest xray negative for focal pneumonia. 00:35 Counseling: I had a detailed discussion with the patient and/or guardian regarding: the cp historical points, exam findings, and any diagnostic results supporting the discharge/admit diagnosis, lab results, radiology results, the need for outpatient follow up, an synchronizer, to return to the emergency department if symptoms worsen or persist or if there are any questions or concerns that arise at home. Response to treatment: the patient's symptoms have mildly improved after treatment, and as a result, I will discharge patient. ED course: VSS. Continue symptomatic treatment, fever control and f/u with primary physician next 1-2 days if symptoms continue. 01/25 20:51 Order name: Flu; Complete Time: 00:27 [facility] 01/25 20:51 Order name: Strep; Complete Time: 00:27 [facility] 01/25 21:32 Order name: Throat Culture EDOK 01/25 22:36 Order name: CBC with Diff; Complete Time: 00:27 cp 01/26 00:27 Interpretation: Normal except: WBC 3.4; RBC 3.64; HGB 11.7; HCT 35.7; PLT 85; MN% 13.3; cp BASO% 1.5; LYMA 0.6. 01/25 22:36 Order name: BMP; Complete Time: 00:27 cp 01/26 00:28 Interpretation: Normal except: GLUC 251; BUN 52; CRE 6.36; GFR 7; CA 6.8. cp 01/25 22:36 Order name: Procalcitonin; Complete Time: 00:27 cp 01/25 20:51 Order name: Chest Pa And Lat (2 Views) XRAY [facility] 01/25 22:36 Order name: EKG; Complete Time: 22:36 cp 01/25 22:36 Order name: EKG - Nurse/Tech; Complete Time: 23:17 cp 01/26 00:12 Order name: CBC Smear Scan; Complete Time: 00:27 EDMS EC/24 23:20 Rate is 72 beats/min. Rhythm is regular. SD interval is normal. QRS interval is normal. cp QT interval is prolonged at 450 msec. T waves are Inverted in leads I, aVL. Interpreted by me. Reviewed by me. Administered Medications: 22:59 Drug: Tussionex Pennkinetic ER 5 ml Route: PO; ak1 23:17 Follow up: Response: No adverse reaction ak1 22:59 Drug: Albuterol 2.5 mg Route: Inhalation; ak1 22:59 Drug: AtroVENT Aerosol 0.5 mg Route: Inhalation; ak1 01/26 00:39 Drug: Tylenol 1000 mg Route: PO; ak1 00:39 Follow up: Response: No adverse reaction ak1 Disposition: 01/26/19 00:36 Discharged to Home. Impression: Acute upper respiratory infection, unspecified. - Condition is Stable. - Discharge Instructions: Upper Respiratory Infection, Adult. - Prescriptions for Albuterol Sulfate 90 mcg/actuation - inhale 1-2 puff by INHALATION route every 4-6 hours; 1 Inhaler. Guaifenesin AC 10- 100 mg/5 mL Oral Liquid - take 10 milliliters by ORAL route every 6 hours As needed; 180 milliliter. - Medication Reconciliation Form, Thank You Letter, Antibiotic Education, Prescription Opioid Use form. - Follow up: Wild Bustamante MD; When: 2 - 3 days; Reason: Recheck today's complaints. - Problem is new. - Symptoms have improved. Signatures: Dispatcher [employer] EDMS Eve Andrew RN RN aj1 Shelli Perla RN RN ak1 Duane Whyte PA PA cp Corrections: (The following items were deleted from the chart) 00:27 00:27 Normal except: WBC 3.4; RBC 3.64; HGB 11.7; HCT 35.7; PLT 85; MN% 13.3; BASO% cp 1.5. cp 00:28 00:28 Normal except: GLUC 251; BUN 52; CRE 6.36; GFR 7. cp cp 01:10 00:36 01/26/2019 00:36 Discharged to Home. Impression: Acute upper respiratory ak1 infection, unspecified. Condition is Stable. Forms are Medication Reconciliation Form, Thank You Letter, Antibiotic Education, Prescription Opioid Use. Follow up: Wild Bustamante; When: 2 - 3 days; Reason: Recheck today's complaints. Problem is new. Symptoms have improved. cp
[2019-01-26 02:36] VITALS: TEMP 101.3
[2019-01-26 02:37] VITALS: BP 161/77; O2SAT 97
--- NOTE | 2019-01-26 07:22 | EKG ---
Test Date: 2019-01-25 Test Time: 23:13:01 Painter Touch Up: DARION MEASUREMENT RESULTS: Intervals: Rate: 72 RI: 168 QRSD: 84 QT: 450 QTc: 492 [place]: P: 67 RI: 168 QRS: 58 T: 199 INTERPRETIVE STATEMENTS: Normal sinus rhythm Possible Left atrial enlargement Nonspecific ST and T wave abnormality Prolonged QT Abnormal ECG Compared to ECG 10/09/2018 19:52:25 Possible ischemia no longer present ST (T wave) deviation still present Electronically Signed On 01-26-19 07:21:45 CDT by Papi Mi
--- NOTE | 2019-01-26 08:15 | RAD REPORT ---
EXAM DESCRIPTION: RAD - Chest Pa And Lat (2 Views) - 01/25/2019 10:12 pm CLINICAL HISTORY: SOB Chest pain. COMPARISON: Chest Single View dated 10/09/2018 FINDINGS: Mild interstitial pulmonary edema suspected. Small right pleural effusion noted. The heart is significantly enlarged with a dual lead pacer device present. Left-sided venous catheter tip in t he SVC. Sternotomy wires present. IMPRESSION: Mild CHF with a small right pleural effusion.
== END 2019-01-26 01:10 | disposition home or self-care (01) ==
LOC: ER 20:39
DX: J06.9 Acute upper respiratory infection, unspecified (principal); I12.0 Hypertensive chronic kidney disease with stage 5 chronic kidney disease or end stage renal disease; E11.22 Type 2 diabetes mellitus with diabetic chronic kidney disease; N18.6 End stage renal disease; D50.9 Iron deficiency anemia, unspecified; I25.9 Chronic ischemic heart disease, unspecified
CPT/HCPCS: 36415; 71046; 80048; 84145; 85025; 87070; 87081; 87804; 93005; 99284

== ENCOUNTER 2019-02-17 18:04 | Inpatient (IN) | payer OTHER ==
--- OUTSIDE RECORDS SUMMARY | 2019-02-17 18:06 | XMS REPORT ---
:1955 [facility] Address [address] [place] [address] Dr. Beebe [address] [place] [id number] Care Team Providers Name Role Phone Unavailable Unavailable Unavailable Problems This patient has no known problems. Allergies, Adverse Reactions, Alerts This patient has no known allergies or adverse reactions. Medications This patient has no known medications. Encounters Start End Encounter Admission Attending Care Care Encounter Date/Time Date/Time Type Type Clinicians Facility Department ID 2018-09-18 [id number] 08:26:04 2018-01-22 2018-01-22 Emergency [facility] [id number] 16:17:00 16:17:00
[2019-02-17 18:57] LABS: Absolute Lymphocytes (CBC) 0.6 K/uL (0.7-4.9); Basophils % 1.4 % (0-1.3); Lymphocytes % 20.2 % (15.3-44.8); MPV 9.9 fL (7.6-11.3); RBC Red Blood Cell Count 3.44 M/uL (3.86-4.86)
[2019-02-17 19:09] LABS: Protime INR 1.15
--- NOTE | 2019-02-17 19:18 | RAD REPORT ---
EXAM DESCRIPTION: RAD - Chest Single View - 02/17/2019 7:12 pm CLINICAL HISTORY: COUGH Chest pain. COMPARISON: <Comparisons> FINDINGS: Portable technique limits examination quality. Mild interstitial pulmonary edema. The heart is moderately enlarged in size. Right-sided pacer device is present. Left-sided venous catheter has tip in the SVC.Sternotomy wires present. IMPRESSION: Mild CHF.
[2019-02-17 19:40] LABS: ALT/SGPT 64 U/L (12-78); AST/SGOT 48 U/L (15-37); Albumin 3.6 g/dL (3.4-5.0); Alkaline Phosphatase 236 U/L (45-117); BUN Blood Urea Nitrogen 130 mg/dL (7-18); Bicarbonate 23 mmol/L (21-32); Bilirubin Direct 0.2 mg/dL (0-0.2); Bilirubin Total 0.6 mg/dL (0.2-1.0); Glucose Level 215 mg/dL (74-106); Magnesium 2.9 mg/dL (1.8-2.4); NT PRO-BNP > 175000 pg/mL (<125); Sodium Level 132 mmol/L (136-145); Troponin (Emerg Dept Use Only) 0.32 ng/mL (0.0-0.045)
[2019-02-17 19:41] LABS: Potassium 6.7 mmol/L (3.5-5.1)
--- NOTE | 2019-02-17 20:54 | EDPHYS ---
Physician Documentation [facility] Name: Qiana Vadlez Age: 63 yrs Sex: Female : 1955 Arrival Date: 02/17/2019 Time: 18:06 Bed 5 Private MD: ED Physician Duane Singh HPI: 02/17 19:17 This 63 yrs old Female presents to ER via Wheelchair with complaints of snw Weakness, Leg Pain. 19:17 The patient presents to the emergency department with weakness of the entire body, snw generalized weakness, that is moderate. Onset: The symptoms/episode began/occurred gradually, 3 day(s) ago, and became persistent. Context: occurred at home. Associated signs and symptoms: Pertinent positives: cough. Severity of symptoms: At their worst the symptoms were moderate. Patient's baseline: Neuro: alert and fully oriented, Motor: no deficits, Ambulation: walks without assistance. Current symptoms: cough, moved independently from w/c to stretcher without difficulty. It is unknown whether or not the patient has had similar symptoms in the past. pt was supposed to have dialysis today and skipped it 2nd to weakness. Historical: - Allergies: 18:12 No Known Allergies; aj1 - Home Meds: 18:12 atorvastatin 40 mg Oral tab 1 tab once daily [Active]; carvedilol 6.25 mg Oral tab 1 aj1 tab 2 times per day [Active]; doxazosin 4 mg Oral tab twice a day [Active]; Fosrenol 1,000 mg Oral pwpk 1 packet 3 times per day [Active]; hydralazine 100 mg Oral tab Q8H [Active]; Lactulose 30 gm daily until bowels move and then stop taking prn Oral [Active]; lisinopril 20 mg Oral tab 1 tab twice a day [Active]; Nifedipine ER Oral 60 mg twice a day [Active]; pantoprazole 40 mg Oral TbEC 1 tab once daily [Active]; Renvela 4 tabs TID Oral [Active]; Senexon 8.6 mg Oral tab twice a day [Active]; - PMHx: 18:12 Chronic ischemic heart disease; Diabetes - IDDM; ESRD; GERD; High Cholesterol; aj1 hyperparathyroidism; Hypertension; IRON DEFICIENCY ANEMIA; - Immunization history:: Flu vaccine is up to date. - Social history:: Smoking status: Patient/guardian denies using tobacco. - Ebola Screening: : Patient denies travel to an Ebola-affected area in the 21 days before illness onset. ROS: 19:13 Constitutional: Negative for fever, chills, and weight loss, Eyes: Negative for injury, snw pain, redness, and discharge, ENT: Negative for injury, pain, and discharge, Neck: Negative for injury, pain, and swelling, Cardiovascular: Negative for chest pain, palpitations, and edema, Respiratory: Negative for shortness of breath, cough, wheezing, and pleuritic chest pain, Abdomen/GI: Negative for abdominal pain, nausea, vomiting, diarrhea, and constipation, Back: Negative for injury and pain, : Negative for injury, bleeding, discharge, and swelling, MS/Extremity: Negative for injury and deformity, Skin: Negative for injury, rash, and discoloration. 19:13 Neuro: Positive for weakness, to lower extremities x 3 days. Exam: 19:10 Head/Face: Normocephalic, atraumatic. Eyes: Pupils equal round and reactive to light, snw extra-ocular motions intact. Lids and lashes normal. Conjunctiva and sclera are non-icteric and not injected. Cornea within normal limits. Periorbital areas with no swelling, redness, or edema. ENT: Nares patent. No nasal discharge, no septal abnormalities noted. Tympanic membranes are normal and external auditory canals are clear. Oropharynx with no redness, swelling, or masses, exudates, or evidence of obstruction, uvula midline. Mucous membranes moist. Neck: Trachea midline, no thyromegaly or masses palpated, and no cervical lymphadenopathy. Supple, full range of motion without nuchal rigidity, or vertebral point tenderness. No Meningismus. Chest/axilla: Normal chest wall appearance and motion. Nontender with no deformity. No lesions are appreciated. Cardiovascular: Regular rate and rhythm with a normal S1 and S2. No gallops, + murmur, or rubs. Normal PMI, no JVD. No pulse deficits. 19:10 Abdomen/GI: Soft, non-tender, with normal bowel sounds. No distension or tympany. No guarding or rebound. No evidence of tenderness throughout. Back: No spinal tenderness. No costovertebral tenderness. Full range of motion. Neuro: Awake and alert, GCS 15, oriented to person, place, time, and situation. Cranial nerves II-XII grossly intact. Motor strength 5/5 in all extremities. Sensory grossly intact. Cerebellar exam normal. Normal gait. Psych: Awake, alert, with orientation to person, place and time. Behavior, mood, and affect are within normal limits. 19:10 Constitutional: The patient appears alert, awake, uncomfortable, generalized weakness of lower extremities x 3 days 19:10 Respiratory: the patient does not display signs of respiratory distress, Respirations: normal, Breath sounds: are clear throughout, harsh cough. 19:10 Skin: Appearance: Color: dusky, Moisture: normal moisture, petechiae, not noted, ecchymosis, that are moderate, of the dorsal aspect of bilateral forearms and hematoma to right pretibial area with edema to bilateral lower extremities. Vital Signs: 18:12 BP 197 / 87; Pulse 60; Resp 18; Temp 97.1; Pulse Ox 98% on R/A; Weight 72 kg (R); aj1 Height 5 ft. 3 in. (160.02 cm) (R); Pain 0/10; 20:52 BP 184 / 86; Pulse 60; Resp 18; Pulse Ox 95% on R/A; ak1 22:36 BP 164 / 82; Pulse 60; Resp 18; Temp 98.1; Pulse Ox 95% on R/A; Pain 0/10; ak1 18:12 Body Mass Index 28.12 (72.00 kg, 160.02 cm) aj1 MDM: 18:17 Patient medically screened. ford 20:00 Data reviewed: vital signs, nurses notes. Data interpreted: Pulse oximetry: on room air snw is 98 %. Interpretation: acceptable. Counseling: I had a detailed discussion with the patient and/or guardian regarding: the historical points, exam findings, and any diagnostic results supporting the discharge/admit diagnosis, the presence of at least one elevated blood pressure reading (>120/80) during this emergency department visit, lab results, radiology results, the need for further work-up and treatment in the hospital. Physician consultation: Riri Singh MD was called at 20:00, regarding consult, need for dialysis. 20:39 Physician consultation: Kalyan Lennon was called at 20:39, regarding admission, Unable snw to admit until conference with school commissioner Sterile Process Tech. 20:50 Physician consultation: Dr Chowdary was contacted at 20:50, kindly agrees to call out snw Dialysis nurse for urgent dialysis. 02/17 18:16 Order name: Basic Metabolic Panel; Complete Time: 19:43 snw 02/17 18:16 Order name: CBC with Diff snw 02/17 18:16 Order name: LFT's; Complete Time: 19:43 snw 02/17 18:16 Order name: Magnesium; Complete Time: 19:43 snw 02/17 18:16 Order name: NT PRO-BNP; Complete Time: 19:43 snw 02/17 18:16 Order name: PT-INR; Complete Time: 19:56 snw 02/17 18:16 Order name: Troponin (emerg Dept Use Only); Complete Time: 19:43 snw 02/17 18:16 Order name: XRAY Chest (1 view); Complete Time: 19:20 snw 02/17 18:16 Order name: EKG; Complete Time: 18:18 snw 02/17 18:16 Order name: Cardiac monitoring; Complete Time: 18:41 snw 02/17 18:16 Order name: EKG - Nurse/Tech; Complete Time: 18:41 snw 02/17 18:16 Order name: IV Saline Lock; Complete Time: 18:41 snw 02/17 18:16 Order name: Labs collected and sent; Complete Time: 18:41 snw 02/17 18:16 Order name: Flu snw 02/17 18:16 Order name: O2 Per Protocol; Complete Time: 18:41 snw 02/17 18:16 Order name: O2 Sat Monitoring; Complete Time: 18:41 snw Administered Medications: No medications were administered Disposition: 02/17/19 20:53 Hospitalization ordered by Kalyan Lennon for Inpatient Admission. Preliminary diagnosis are End stage renal disease, Hyperkalemia, Fluid overload. - Bed requested for Telemetry/MedSurg (Inpatient). - Status is Inpatient Admission. ak1 - Condition is Fair. - Problem is an acute exacerbation. - Symptoms are unchanged. UTI on Admission? No Addendum: 02/20/2019 07:05 Co-signature as Attending Physician, Duaen Singh MD I agree with the assessment and c giron plan of care. Signatures: Dispatcher [employer] EDEve Nagy RN RN aj1 Duane Singh MD MD cha Therrien, Shelly, CUSTOMER SERVICE CORRESPONDENCE CLERK-C CUSTOMER SERVICE CORRESPONDENCE CLERK-Csnw Shelli Perla RN RN ak1 Brianna Costello RN RN cg Corrections: (The following items were deleted from the chart) 02/17 21:55 20:53 Hospitalization Ordered by Kalyan Lennon for Inpatient Admission. Preliminary cg diagnosis is End stage renal disease; Hyperkalemia; Fluid overload. Bed requested for Telemetry/MedSurg (Inpatient). Status is Inpatient Admission. Condition is Fair. Problem is an acute exacerbation. Symptoms are unchanged. UTI on Admission? No. snw 22:51 21:55 02/17/2019 20:53 Hospitalization Ordered by Kalyan Lennon for Inpatient ak1 Admission. Preliminary diagnosis is End stage renal disease; Hyperkalemia; Fluid overload. Bed requested for Telemetry/MedSurg (Inpatient). Status is Inpatient Admission. Condition is Fair. Problem is an acute exacerbation. Symptoms are unchanged. UTI on Admission? No. cg
--- NOTE | 2019-02-17 20:54 | ER ---
Nurse's Notes [facility] Name: Qiana Valdez Age: 63 yrs Sex: Female : 1955 Arrival Date: 02/17/2019 Time: 18:06 Bed 5 Private MD: Diagnosis: End stage renal disease;Hyperkalemia;Fluid overload Presentation: 02/17 18:08 Presenting complaint: Patient states: Weakness to both arms and legs for the past 3 aj1 days. Denies pain. Patient reports that she fell because her legs were so weak, denies hitting head, denies LOC. Patient also reports that she was suppose to get dialysis yesterday but she didn't go. Transition of care: patient was not received from another setting of care. 18:08 Method Of Arrival: Wheelchair aj1 18:11 Onset of symptoms was February 2019. Risk Assessment: Do you want to hurt yourself or aj1 someone else? Patient reports no desire to harm self or others. Initial Sepsis Screen: Does the patient meet any 2 criteria? No. Patient's initial sepsis screen is negative. Does the patient have a suspected source of infection? No. Patient's initial sepsis screen is negative. Care prior to arrival: None. 18:11 Acuity: SIXTO 3 aj1 Triage Assessment: 18:12 General: Appears in no apparent distress. comfortable, Behavior is calm, cooperative, aj1 appropriate for age. Pain: Denies pain. Neuro: Level of Consciousness is awake, alert, obeys commands. Cardiovascular: Patient's skin is warm and dry. Respiratory: Airway is patent Respiratory effort is even, unlabored, Respiratory pattern is regular, symmetrical. Historical: - Allergies: 18:12 No Known Allergies; aj1 - Home Meds: 18:12 atorvastatin 40 mg Oral tab 1 tab once daily [Active]; carvedilol 6.25 mg Oral tab 1 aj1 tab 2 times per day [Active]; doxazosin 4 mg Oral tab twice a day [Active]; Fosrenol 1,000 mg Oral pwpk 1 packet 3 times per day [Active]; hydralazine 100 mg Oral tab Q8H [Active]; Lactulose 30 gm daily until bowels move and then stop taking prn Oral [Active]; lisinopril 20 mg Oral tab 1 tab twice a day [Active]; Nifedipine ER Oral 60 mg twice a day [Active]; pantoprazole 40 mg Oral TbEC 1 tab once daily [Active]; Renvela 4 tabs TID Oral [Active]; Senexon 8.6 mg Oral tab twice a day [Active]; - PMHx: 18:12 Chronic ischemic heart disease; Diabetes - IDDM; ESRD; GERD; High Cholesterol; aj1 hyperparathyroidism; Hypertension; IRON DEFICIENCY ANEMIA; - Immunization history:: Flu vaccine is up to date. - Social history:: Smoking status: Patient/guardian denies using tobacco. - Ebola Screening: : Patient denies travel to an Ebola-affected area in the 21 days before illness onset. Screenin:41 Abuse screen: Denies threats or abuse. Nutritional screening: On. Tuberculosis la1 screening: No symptoms or risk factors identified. Fall Risk None identified. Assessment: 18:40 General: Appears in no apparent distress. Behavior is calm, cooperative. Pain: Denies la1 pain. Neuro: Level of Consciousness is awake, alert, obeys commands, Oriented to person, place, time, situation. Cardiovascular: Capillary refill < 3 seconds Patient's skin is warm and dry. Respiratory: Airway is patent Respiratory effort is even, unlabored, Respiratory pattern is regular, symmetrical, Breath sounds are clear bilaterally. GI: Abdomen is round non-distended. : No signs and/or symptoms were reported regarding the genitourinary system. 18:41 Cardiovascular: Dialysis shunt: in the dorsal aspect of right forearm, with palpable la1 thrill, with auscultated bruit, with no erythema, with no edema, no bleeding noted. 19:51 Reassessment: pt dialysis is done a [facility]. pt PCP Dr. Narayanan. ak1 Vital Signs: 18:12 BP 197 / 87; Pulse 60; Resp 18; Temp 97.1; Pulse Ox 98% on R/A; Weight 72 kg (R); aj1 Height 5 ft. 3 in. (160.02 cm) (R); Pain 0/10; 20:52 BP 184 / 86; Pulse 60; Resp 18; Pulse Ox 95% on R/A; ak1 22:36 BP 164 / 82; Pulse 60; Resp 18; Temp 98.1; Pulse Ox 95% on R/A; Pain 0/10; ak1 18:12 Body Mass Index 28.12 (72.00 kg, 160.02 cm) aj1 ED Course: 18:06 Patient arrived in ED. as 18:11 Triage completed. aj1 18:12 Arm band placed on Patient placed in an exam room. aj1 18:14 Talha Stern, RN is Primary Nurse. la1 18:15 Kar[facility] Mcarthur [facility]C [facility] snw 18:15 Duane Singh MD is Attending Physician. snw 18:41 Patient has correct armband on for positive identification. la1 18:41 No provider procedures requiring assistance completed. Inserted saline lock: 22 gauge la1 in left antecubital area, using aseptic technique. Blood collected. 19:12 XRAY Chest (1 view) In Process Unspecified. EDMS 19:40 Notified Nurse Practitioner and/or Physician Php Mysql Developer of a critical lab result(s), fc potassium of 6.7, creat of 11, calcium of 6.8. 20:52 Kalyan Lennon is Hospitalizing Provider. snw 22:07 Patient admitted, IV remains in place. ak1 22:30 Primary Nurse role handed off by Talha Stern, SUNITA ak1 22:30 Shelli Perla, RN is Primary Nurse. ak1 Administered Medications: No medications were administered Outcome: 20:53 Decision to Hospitalize by Provider. snw 22:06 Admitted to Med/surg accompanied by tech, family with patient, via wheelchair, with ak1 chart. 22:06 Condition: stable 22:06 Instructed on the need for admit. 22:51 Patient left the ED. ak1 Signatures: Dispatcher [employer] EDTX Eve Andrew RN RN Karoline Guerra FNP-C GATE SHEAR OPERATOR-Csnw Lisa Farley RN RN fc Martinez, Amelia as Talha Stern RN RN la1 Krenek, Amber, RN RN j luis
[2019-02-17] MEDS ORDERED: SOD POLYSTYREN SUL 15 GM/60 ML UCUP PO ONE (20:56)
[2019-02-17] MEDS ORDERED: ALBUTEROL 2.5 MG/3 ML NEB SOL NEB ONE (20:57)
[2019-02-17] MEDS ORDERED: D50W 25 GM/50 ML SYRINGE/VIAL IV ONE (20:58)
[2019-02-17] MEDS ORDERED: CALCIUM GLUC 10% INJ 9.3 MEQ in NA CHLORIDE 0.9% 100 ML IV ONE (20:58)
[2019-02-17] MEDS ORDERED: GLUCAGON 1 MG/VIAL IM PRN ×2 (20:59→22:31)
[2019-02-17] MEDS ORDERED: D50W 25 GM/50 ML SYRINGE/VIAL IV PRN ×2 (20:59→22:31)
--- NOTE | 2019-02-17 22:24 | P.HP ---
Certification for Inpatient Patient admitted to: Inpatient With expected LOS: >2 Midnights Practitioner: I am a practitioner with admitting privileges, knowledge of patient current condition, hospital course, and medical plan of care. Services: Services provided to patient in accordance with Admission requirements found in Title 42 Section 412.3 of the Code of Federal Regulations Patient History Date of Service: 02/18/19 Reason for admission: Generalized weakness and hyperkalemia History of Present Illness: 63-year-old woman with a history of end-stage renal disease on hemodialysis presented to the emergency department with a complaint of generalized weakness and lightheadedness. She also reports coughing. She denied any fever, she denied any chest pain, she denied any diarrhea or vomiting. She endorsed nausea. She was treated for bronchitis about 2 weeks ago. Patient states that she missed dialysis yesterday because she was out of town. She came back to [place] today because of her worsening symptoms and presented to the ED for evaluation. Her potassium level was 6.7 in the ED. Chest x-ray reported mild interstitial pulmonary edema. Nephrology dr. Huang was informed for urgent dialysis and patient admitted for further management. Allergies No Known Allergies Allergy (Verified 02/18/19 04:59) Home Medications: Doxazosin [Cardura*] 1 tab PO BID 10/10/18 Folic Acid/Vit B Complex and C [Dialyvite 800 Chewable Wafer] 1 tab PO DAILY 12/21 Hydralazine HCl [Apresoline] 1 tab PO Q8H 10/10/18 Lactulose 30 gm PO DAILY PRN 10/10/18 Lanthanum Carbonate [Fosrenol] 1,000 mg PO TID 10/10/18 Nifedipine [Nifedipine ER] 1 tab PO BID 10/10/18 Pantoprazole [Protonix Tab*] 1 tab PO DAILY 10/10/18 Sennosides/Docusate Sodium [Senexon-S Tablet] 1 each PO BID 10/10/18 Sevelamer Carbonate [Renvela*] 4 tab PO TID 10/10/18 Aspirin [Aspirin EC 81 MG] 81 mg PO DAILY #30 tablet. 10/11/18 Atorvastatin Calcium [Lipitor] 80 mg PO BEDTIME #30 tab 10/11/18 Clopidogrel Bisulfate [Plavix*] 75 mg PO DAILY #30 tablet 10/11/18 Furosemide [Lasix] 40 mg PO BIDL #60 tab 10/11/18 Losartan Potassium [Cozaar*] 100 mg PO DAILY #60 tablet 10/11/18 Metoprolol Tartrate [Lopressor*] 25 mg PO BID #60 tab 10/11/18 metOLazone [Zaroxolyn*] 5 mg PO DAILY #30 tab 10/11/18 - Past Medical/Surgical History Diabetic: Yes -: HTN -: NIDDM -: ESRD - MWF -: Nonfuctioning LLE fistula -: Triple bypass 2016 -: Pacemaker -: Tubal ligation -: Fistula aneursym reconstruction 4 times -: Bilateral cataract surgery - Family History Family History: Reviewed- Non-Contributory - Social History Alcohol use: No CD- Drugs: No Caffeine use: No Review of Systems Other: General: No fever, no malaise, no unintentional weight loss. Eyes: No eye discharge, CVS: No chest pain, no palpitation. GI: No abdominal pain, no vomit, no constipation, no diarrhea. Genitourinary: No dysuria, no urinary frequency, no incontinence, no hematuria. Musculoskeletal: No joint pains, or joint swelling, no gait instability. Neurology: No headache, no asymmetric, weakness, no problem with swallowing. Except as documented, all other systems reviewed and negative. Physical Examination - Physical Exam General: Alert, In no apparent distress, Oriented x3 HEENT: Atraumatic, Normocephalic, PERRLA, Mucous membr. moist/pink, Sclerae nonicteric Neck: Supple, JVD not distended, No Thyromegaly Respiratory: Normal air movement, Crackles/rales (Mild bibasilar rales) Cardiovascular: Regular rate/rhythm, Normal S1 S2, No murmurs, Edema (Trace bilateral lower extremity pitting edema) Capillary refill: <2 Seconds Gastrointestinal: Normal bowel sounds, Soft and benign, Non-distended, No tenderness Musculoskeletal: No swelling Integumentary: No rashes, No erythema Neurological: Normal speech, Normal strength at 5/5 x4 extr, Cranial nerves 3- 12 intact - Studies Laboratory Data (last 24 hrs) 02/17/19 18:35: PT 13.5 H, INR 1.15 02/17/19 18:35: WBC 3.0 L, Hgb 11.2 L, Hct 33.0 L, Plt Count 86 L 02/17/19 18:35: Sodium 132 L, Potassium 6.7 H*, BUN 130 H, Creatinine 11.00 H*, Glucose 215 H, Magnesium 2.9 H D, Total Bilirubin 0.6, AST 48 H, ALT 64, Alkaline Phosphatase 236 H Assessment and Plan - Problems (Diagnosis) (1) End-stage renal disease on hemodialysis Current Visit: Yes Status: Chronic (2) Hyperkalemia Current Visit: Yes Status: Acute (3) Upper respiratory infection Current Visit: Yes Status: Acute (4) Generalized weakness Current Visit: Yes Status: Acute (5) Type 2 diabetes mellitus Current Visit: Yes Status: Chronic (6) Elevated troponin Current Visit: Yes Status: Acute (7) Uncontrolled hypertension Current Visit: Yes Status: Acute - Plan Admit to [facility] with telemetry Nephrology consult placed for urgent hemodialysis. Case discussed with Dr. Jean. Treatment for hyperkalemia-Kayexalate, calcium gluconate, D50 and insulin and Albuterol ordered to be given in the ED. Recheck potassium and 6 hours. Check procalcitonin Blood cultures. Antibiotics pending procalcitonin result Troponin likely secondary to decreased clearance given the ESRD. Insulin sliding scale for glucose management Continue home antihypertensives Hydralazine IV p.r.n. for BP spikes. - Advance Directives Does patient have a Living Will: No Does patient have a Durable POA for Healthcare: Yes
[2019-02-17] MEDS ORDERED: ACETAMINOPHEN 500 MG TAB PO PRN (23:20)
[2019-02-17] MEDS ORDERED: ONDANSETRON 4 MG/2 ML VIAL IV PRN (23:20)
[2019-02-18] MEDS: HEPARIN 5000 UNIT/ML 1 ML VIAL SQ SCH ×3 (02:54→17:00)
[2019-02-18] MEDS: HYDRALAZINE HCL 20 MG/ML VIAL IV PRN ×2 (02:54→20:34)
[2019-02-18] MEDS: GUAIFENESIN/DM 5 ML UCUP PO PRN ×2 (05:24→12:25)
[2019-02-18 06:29] LABS: Absolute Lymphocytes (CBC) 0.7 K/uL (0.7-4.9); Basophils % 2.4 % (0-1.3); Hematocrit 31.8 % (36.0-45.0); Lymphocytes % 25.4 % (15.3-44.8); MPV 9.8 fL (7.6-11.3); RBC Red Blood Cell Count 3.34 M/uL (3.86-4.86)
[2019-02-18 06:59] LABS: Magnesium 2.4 mg/dL (1.8-2.4); Phosphorus 4.7 mg/dL (2.5-4.9); Potassium 4.5 mmol/L (3.5-5.1)
[2019-02-18] MEDS: INSULIN -REGULAR HUMAN 50 UNIT/0.5 ML ML SQ SCH ×4 (07:30→20:35)
[2019-02-18] MEDS ORDERED: INSULIN -REGULAR HUMAN 50 UNIT/0.5 ML ML SQ SCH (07:30)
[2019-02-18 09:23] LABS: Platelet Estimate DECR; Urine White Blood Cell Casts OK
[2019-02-18 09:24] LABS: Blood Morphology Comment NOT SEEN (NOT SEEN)
[2019-02-18 09:48] LABS: Anisocytosis 2+; Blood Morphology Comment NOTED (NOT SEEN); Platelet Estimate DECR; Poikilocytosis 1+; Urine White Blood Cell Casts OK
--- NOTE | 2019-02-18 10:03 | EKG ---
Test Date: 2019-02-17 Test Time: 18:40:14 Button Breaker Operator: KRISTAN MEASUREMENT RESULTS: Intervals: Rate: 65 KS: 114 QRSD: 106 QT: 508 QTc: 528 [place]: P: 33 KS: 114 QRS: 35 T: 169 INTERPRETIVE STATEMENTS: Normal sinus rhythm Incomplete right bundle branch block ST & T wave abnormality, consider lateral ischemia Prolonged QT Abnormal ECG Compared to ECG 01/25/2019 23:13:01 Incomplete right bundle-branch block now present Possible ischemia now present ST (T wave) deviation still present Electronically Signed On 02-18-19 10:03:07 TRANSIT OPERATIONS SUPERVISOR by Hema Acuna
[2019-02-18] MEDS: BENZONATATE 100 MG CAP PO PRN (13:43)
--- NOTE | 2019-02-18 14:29 | P.CNS ---
Date of Consult: 02/18/19 Chief Complaint: Generalized weakness and hyperkalemia History of Present Illness: A 63-year-old woman with PMHX of ESRD on HD MWF via Rt tunneled cath , have non mature lt forearm AVF, DM, HTN , pt presented to ER with weakness pt missed her dialysis on Tuesday, was rescheduled on Tuesday , yesterday she feel weak and presented to ER in Er K 6.8, cxr with mild pulmonary edema pt went for urgent dialysis last night now feels better, denied chest pain , palpitation , nausea , vomiting Allergies No Known Allergies Allergy (Verified 02/18/19 04:59) Home Medications: Albuterol Sulfate [Albuterol Sulfate Hfa] 1 - 2 inh IH Q6H 02/18/19 Aspirin Chewable [Aspirin Chewable*] 81 mg PO DAILY 02/18/19 Carvedilol 25 mg PO BID 02/18/19 Clopidogrel Bisulfate [Plavix] 75 mg PO DAILY 02/18/19 Doxazosin [Cardura] 4 mg PO BID 02/18/19 Hydralazine [Apresoline] 25 mg PO TID 02/18/19 Metoclopramide HCl 5 mg PO AC 02/18/19 Metoprolol Tartrate [Lopressor] 25 mg PO BID 02/18/19 Pantoprazole [Protonix Tab] 40 mg PO DAILY 02/18/19 Sevelamer Carbonate [Renvela] 800 mg PO TIDWM 02/18/19 - Past Medical/Surgical History Diabetic: Yes -: HTN -: NIDDM -: ESRD - MWF -: Nonfuctioning LLE fistula -: HLD -: GERD -: chronic ischemic heart disease -: hyperparathyroidism -: anemia -: iron deficiency -: Triple bypass 2016 -: Pacemaker -: Tubal ligation -: Fistula aneursym reconstruction 4 times -: Bilateral cataract surgery - Social History Alcohol use: No CD- Drugs: No Caffeine use: No Place of Residence: Home Physical Examination Temp Pulse Resp BP Pulse Ox 97.5 F 65 16 163/77 H 94 02/18/19 12:00 02/18/19 12:00 02/18/19 12:00 02/18/19 12:00 02/18/19 12:00 General: Oriented x3, Mild distress HEENT: Atraumatic Neck: Supple, Without JVD or thyroid abnormality Respiratory: Clear to auscultation bilaterally, Normal air movement Cardiovascular: No edema, Normal pulses, Regular rate/rhythm, No gallops, No rubs, No murmurs Gastrointestinal: Soft and benign, Non-distended Musculoskeletal: No swelling Laboratory Data (last 24 hrs) 02/17/19 18:35: PT 13.5 H, INR 1.15 02/17/19 18:35: WBC 3.0 L, Hgb 11.2 L, Hct 33.0 L, Plt Count 86 L 02/17/19 18:35: Sodium 132 L, Potassium 6.7 H*, BUN 130 H, Creatinine 11.00 H*, Glucose 215 H, Magnesium 2.9 H D, Total Bilirubin 0.6, AST 48 H, ALT 64, Alkaline Phosphatase 236 H - Problems (1) Hyperkalemia Current Visit: Yes Status: Acute Conclusions/Impression: ESRD on HD MWF dialysis tomorrow renal dose meds hyperkalmeia resolved after HD renal diet HTN acceptable DM as pe primary weakness much improved likely due to hyperkalemia Pt can be discharged tomorrow after dialysis from nephrology point of view
--- NOTE | 2019-02-18 16:37 | PN ---
Date of Progress Note: 02/18/2019 Subjective: Patient seen and examined. Chart reviewed and case discussed with RN and Nephrology. Oliva ortiz is doing well. States she feels better than yesterday, was dialyzed emergently yesterday, goi ng in for dialysis this morning. Medications: List reviewed. Physical Examination: Vital Signs: Temperature 97.4, heart rate 62, blood pressure 146/70, respirations 16, O2 98% on room air. General: Awake, alert, oriented x3. Ill-appearing female, obese. CV: S1, S2. Regular rate and rhythm. Peripheral pulses present. Respiratory: Moving air well bilaterally. No wheezing or stridor. No use of accessory muscles. Gastrointestinal: Abdomen is soft, nontender, nondistended. Positive bowel sounds. No guarding or rigidity. Extremities: No clubbing, cyanosis. Trace pedal edema. Neurologic: Nonfocal. Cranial nerves 2 through 12 intact grossly. No focal neurological deficit. Skin: No rashes. Normal skin turgor. Hemodialysis catheter in the left chest. Psych: Mood is somewhat anxious. Affect is congruent with mood. Insight and judgment are fair. Laboratory Data: Sodium 134, potassium 4.5, chloride 98, CO2 of 25, BUN 74, creatinine 7.35, glucose 110, calcium 7.2, phosphorus 4.7, magnesium 2.4. Troponin 0.32, 0.34. WBC 2.6, H and H of 10.8 and 31.8, platelets 84, neutrophils 51%. Influenza screen pending. Assessment And Plan: A 63-year-old female with: 1.Hyperkalemia, improved with dialysis. We will continue to monitor. 2.End-stage renal disease, on hemodialysis. Patient has had missed her dialysis session on Tuesday d ue to being out of town. Patient was dialyzed emergently yesterday. We will continue with dialysis today. Appreciate Nephrology input. 3.Upper respiratory tract infection, likely acute bronchitis. Influenza screen is pending. Patient continues to have some sputum production and cough. Continue with symptomatic treatment. 4.Generalized weakness secondary to above. 5.Diabetes mellitus type 2, non-insulin requiring. We will continue with blood glucose monitoring a nd sliding scale insulin. Patient has chronic kidney disease with end-stage renal disease. 6.Elevated troponin level. Patient denies any active chest pain. However, being diabetic, chest pa in may be masked. We will consult Nephrology. Monitor cardiac enzymes. 7.Uncontrolled hypertension. We will resume home medications as appropriate. 8.Thrombocytopenia. Platelets are 84. Patient seems to have history of low platelets, however sign ificantly lower than baseline of 130s. 9.Anemia of chronic disease secondary to end-stage renal disease. We will monitor hemoglobin levels and transfuse as needed. 10.Leukopenia, unclear etiology. 11.Incomplete right bundle-branch block. Plan, cardiology evaluation. Obtain echocardiogram. Cont inue dialysis. Troponin elevation may be secondary to NSTEMI versus demand mismatch from missed dial ysis. SA/MODL Voice ID: [id number] Report ID: [id number]
[2019-02-18] MEDS ORDERED: INSULIN -REGULAR HUMAN 50 UNIT/0.5 ML ML SQ ONE (20:59)
[2019-02-19] MEDS: HEPARIN 5000 UNIT/ML 1 ML VIAL SQ SCH ×2 (01:00→09:00)
[2019-02-19] MEDS: BENZONATATE 100 MG CAP PO PRN (01:05)
[2019-02-19 05:49] VITALS: BMI 29.5
[2019-02-19] MEDS: INSULIN -REGULAR HUMAN 50 UNIT/0.5 ML ML SQ SCH ×2 (07:30→11:30)
[2019-02-19 09:14] VITALS: O2SAT 94
--- NOTE | 2019-02-19 10:56 | CON ---
History Of Present Illness: Ms. Valdez is 63 and she came to our emergency room having missed dialysi s treatments. She is normally on Tuesday, Tuesday, Tuesday treatment person, so her last dialysis wa s Tuesday. She was supposed to do at Tuesday. It was delayed until Tuesday, instead of going Satu rday she came to the emergency room, between Tuesday and yes. [facility], she became volume overloaded. Her chief complaint was weakness to arms and legs. She wa s not in any pain. Not having chest pain or shortness of breath. I am asked to see her because her troponins are elevated. Her troponins are often elevated. This is also quite common in dialysis pat ients. She has had 3 troponins drawn 6:35 p.m. Tuesday; 5:30 a.m., Tuesday; and 11:30 a.m. Tuesday. They are all virtually the same 0.32, 0.34 and 0.35. Her EKG shows a lot of nonspecific changes noth ing that will be called a definite change or new infarction. In October of this year, she had a cardiac cath. She has had bypass surgery in the past. Her [place] coronary arteries at the time of the card iac cath October 2018 showed diffuse distal disease. She had a patent internal mammary stent to the LAD , patent graft to the LAD, patent saphenous graft to the OM, patent saphenous vein graft to the right . The diagnosis was severe CAD with no angioplasty targets and it was recommended that the patient c ontinue medical therapy. The patient has not been having chest pain, but she was weak and short of b reath. She was found to be in pulmonary edema and probably went 3 days or 4 days without dialysis. Medications: Outpatient medications have been metoprolol and carvedilol that is probably a mistake, I doubt that she takes both. Metoclopramide, Protonix, Plavix, albuterol, hydralazine, aspirin, evens lamer, and doxazosin. Physical Examination: General: She is 5 feet 3 inches, 166 pounds. Vital Signs: Her blood pressure is 169/68, heart rate 62. HEENT: Normal. Lungs: Clear. Extremities: No edema. Distal pulses diminished. Social History: The patient is not a tobacco user. Impression: This is probably not an acute coronary syndrome. I think between dialysis, uremia, the patient probably always has slightly elevated troponin. As we look at her troponins they are nearly always elevated, almost always to the same degree, although in October one of them was 0.66. I think tr oponins are not simply a very unreliable thing in Ms. Valdez, for whatever reason, probably a combinat ion of several things, so if she does not have obvious EKG changes or chest pain, I would not recomme nd doing another heart catheterization. I will do an echocardiogram compared to the one from October an d I would not recommend a change in cardiac medications. ABUNDIO/EVAN Voice ID: [id number] Report ID: [id number]
[2019-02-19] MEDS ORDERED: NA CHLORIDE 0.9% 1,000 ML IV PRN (12:26)
--- NOTE | 2019-02-19 12:32 | ECHO ---
HEIGHT: 5 ft 3 in WEIGHT: 166 lb 11.2 oz DATE OF STUDY: 02/19/[address]: Hema Acuna MD 2-DIMENSIONAL: YES M.MODE: YES DOPPLER: NO COLOR FLOW: NO TDS: PORTABLE: DEFINITY: BUBBLE STUDY: DIAGNOSIS: ABNORMAL TROPONIN CARDIAC HISTORY: CATHERIZATION: YES SURGERY: YES PROSTHETIC VALVE: NO PACEMAKER: YES MEASUREMENTS (cm) DIASTOLIC (NORMALS) SYSTOLIC (NORMALS) IVSd 1.1 (0.6-1.2) LA Diam 4.5 (1.9-4.0) LVEF 50-55% LVIDd 5.1 (3.5-5.7) LVIDs 3.9 (2.0-3.5) %FS 23% LVPWd 1.1 (0.6-1.2) Ao Diam 2.9 (2.0-3.7) 2 DIMENSIONAL ASSESSMENT: RIGHT ATRIUM: NORMAL LEFT ATRIUM: DILATED RIGHT VENTRICLE: NORMAL LEFT VENTRICLE: NORMAL TRICUSPID VALVE: NORMAL MITRAL VALVE: NORMAL PULMONIC VALVE: NORMAL AORTIC VALVE: NORMAL PERICARDIAL EFFUSION: NONE AORTIC ROOT: NORMAL LEFT VENTRICULAR WALL MOTION: NORMAL DOPPLER/COLOR FLOW: NOT REQUESTED COMMENTS: NORMAL LEFT VENTRICULAR EJECTION FRACTION WITH WALL MOTION ABNORMALITY. DILATED LEFT ATRIUM. TECHNOLOGIST: FERDINAND GROVES
[2019-02-19] MEDS ORDERED: ALBUMIN HUMAN 25% 50 ML IV SCH (13:00)
[2019-02-19 16:28] VITALS: BP 177/74; TEMP 98.3
--- NOTE | 2019-02-20 02:45 | PN ---
Date of Progress Note: 02/19/2019 Chief Complaint: Generalized weakness, hyperkalemia, end-stage renal disease, on dialysis. History Of Present Illness: Patient has been dialyzed 3 times per week on Tuesday, Tuesday, Tuesday via a right tunneled dialysis catheter. The patient has AV fistula in the upper extremity, although fistula is not matured and catheter has been used for dialysis access. Patient has diabetic kidney d isease, hypertensive kidney disease, resulted in end-stage renal disease. She missed dialysis on Tue, was rescheduled on Tuesday. Yesterday, she presented to the hospital and was found to have hyp erkalemia, pulmonary edema. Patient received stat dialysis today. Patient is complaining of shortne ss of breath and she will have extra dialysis session to control volume overload. Cardiac echo was ordered and pending to rule out systolic dysfunction to assess valvular disease. Review of Systems: Denies fever, chills. Has shortness of breath with activities. Denies PND, orthopnea. Denies wheez ing. Physical Examination: Lungs: Diminished breath sounds at bases. Heart: S1, S2. No pericardial friction rub. Abdomen: Obese, soft, nontender. Extremities: Edema present. Impression And Plan: 1.End-stage renal disease. Dialysis will be done today to control volume overload and provide metab olic clearance to control potassium level. The patient is undergoing daily dialysis at this point. 2.The patient was found to have hyperkalemia. Potassium has improved after dialysis and is normaliz ing. 3.Hyponatremia. Sodium was 134 due to dilutional effect of fluid overload and the patient is to hav e ultrafiltration. Continue low-sodium diet and p.o. fluid restriction. 4.Hyperkalemia. Potassium level improved from 6.7 to 4.5. Metabolic acidosis was compensated. 5.BNP was severely elevated secondary to congestive heart failure with interstitial pulmonary edema. Patient will continue extra treatment to tolerance dry weight and obtain negative fluid balance. EB/MODL Voice ID: [id number] Report ID: [id number]
--- NOTE | 2019-02-20 15:12 | P.DS ---
Admission Date: 02/17/19 Discharge Date: 02/20/19 Disposition: ROUTINE DISCHARGE Discharge Condition: GOOD Reason for Admission: Generalized weakness and hyperkalemia - Problems (1) Upper respiratory infection Status: Acute Qualifiers: URI type: unspecified viral URI Qualified Code(s): J06.9 - Acute upper respiratory infection, unspecified (2) Generalized weakness Status: Acute (3) Hyperkalemia Status: Acute (4) Uncontrolled hypertension Status: Chronic (5) End-stage renal disease on hemodialysis Status: Chronic (6) Type 2 diabetes mellitus Status: Chronic Qualifiers: Diabetes mellitus care home insulin use: without intermediate accountant use Diabetes mellitus complication status: without complication Qualified Code(s): E11.9 - Type 2 diabetes mellitus without complications Brief History of Present Illness: 63-year-old woman with a history of end-stage renal disease on hemodialysis presented to the emergency department with a complaint of generalized weakness and lightheadedness. She also reports coughing. She denied any fever, she denied any chest pain, she denied any diarrhea or vomiting. She endorsed nausea. She was treated for bronchitis about 2 weeks ago. Patient states that she missed dialysis yesterday because she was out of town. She came back to [place] today because of her worsening symptoms and presented to the ED for evaluation. Her potassium level was 6.7 in the ED. Chest x-ray reported mild interstitial pulmonary edema. Nephrology dr. Huang was informed for urgent dialysis and patient admitted for further management. Hospital Course: Overall during the hospital stay patient remained stable Patient was initially admitted to the hospital for generalized weakness and was found to have hyperkalemia most likely secondary to missed hemodialysis. Patient was admitted to the hospital and nephrology was consulted. Patient was started on hemodialysis here in the hospital had 1 treatment here. After which his hyperkalemia did resolve. His symptoms also resolved. Patient worked with physical therapy here in the hospital and after which she was discharged home under stable condition was asked to follow up with primary care provider about 1 -2 days post discharge. Vital Signs/Physical Exam: Temp Pulse Resp BP Pulse Ox 98.3 F 69 20 177/74 H 96 02/19/19 16:00 02/19/19 16:00 02/19/19 16:00 02/19/19 16:00 02/19/19 16:00 General: Alert, In no apparent distress HEENT: Atraumatic, PERRLA, EOMI Neck: Supple, JVD not distended Respiratory: Clear to auscultation bilaterally, Normal air movement Cardiovascular: Regular rate/rhythm, Normal S1 S2 Gastrointestinal: Normal bowel sounds, No tenderness Musculoskeletal: No tenderness Integumentary: No rashes Neurological: Normal speech, Normal tone, Normal affect Lymphatics: No axilla or inguinal lymphadenopathy Laboratory Data at Discharge: WBC 2.6 K/uL (4.3-10.9) L 02/18/19 05:37 Hgb 10.8 g/dL (12.0-15.0) L 02/18/19 05:37 Hct 31.8 % (36.0-45.0) L 02/18/19 05:37 Plt Count 84 K/uL (152-406) L 02/18/19 05:37 PT 13.5 SECONDS (9.5-12.5) H 02/17/19 18:35 INR 1.15 02/17/19 18:35 Sodium 134 mmol/L (136-145) L 02/18/19 05:37 Potassium 4.5 mmol/L (3.5-5.1) 02/18/19 05:37 BUN 74 mg/dL (7-18) H D 02/18/19 05:37 Creatinine 7.35 mg/dL (0.55-1.3) H* D 02/18/19 05:37 Glucose 110 mg/dL (74-106) H 02/18/19 05:37 Phosphorus 4.7 mg/dL (2.5-4.9) 02/18/19 05:37 Magnesium 2.4 mg/dL (1.8-2.4) D 02/18/19 05:37 Total Bilirubin 0.6 mg/dL (0.2-1.0) 02/17/19 18:35 AST 48 U/L (15-37) H 02/17/19 18:35 ALT 64 U/L (12-78) 02/17/19 18:35 Alkaline Phosphatase 236 U/L (45-117) H 02/17/19 18:35 Troponin I 0.35 ng/mL (0.0-0.045) H 02/18/19 11:30 Home Medications: Albuterol Sulfate [Albuterol Sulfate Hfa] 1 - 2 inh IH Q6H 02/18/19 Aspirin Chewable [Aspirin Chewable*] 81 mg PO DAILY 02/18/19 Clopidogrel Bisulfate [Plavix*] 75 mg PO DAILY 02/18/19 Doxazosin [Cardura*] 4 mg PO BID 02/18/19 Hydralazine [Apresoline*] 25 mg PO TID 02/18/19 Metoclopramide HCl 5 mg PO AC 02/18/19 Metoprolol Tartrate [Lopressor*] 25 mg PO BID 02/18/19 Pantoprazole [Protonix Tab*] 40 mg PO DAILY 02/18/19 Sevelamer Carbonate [Renvela*] 800 mg PO TIDWM 02/18/19 carvediloL [Carvedilol] 25 mg PO BID 02/18/19 Diet: Regular Activity: Ad cory Followup: Brad Jean MD [ACTIVE - CAN ADMIT] - (follow up per scheduled dialysis)
== END 2019-02-19 16:27 | disposition home or self-care (01) | DRG 640 ==
LOC: ER 18:04 → ERHOLD 21:46 → 4TH 22:37
PROVIDERS: ADMIT Internal Medicine; ATTEND Internal Medicine
PROC: 5A1D70Z Performance of Urinary Filtration, Intermittent, Less than 6 Hours Per Day (ICD-10-PCS; principal; 2019-02-17)
PROC: 5A1D70Z Performance of Urinary Filtration, Intermittent, Less than 6 Hours Per Day (ICD-10-PCS; 2019-02-17)
DX: E87.5 Hyperkalemia (principal); N18.6 End stage renal disease; I12.0 Hypertensive chronic kidney disease with stage 5 chronic kidney disease or end stage renal disease; J06.9 Acute upper respiratory infection, unspecified; E87.1 Hypo-osmolality and hyponatremia; R53.1 Weakness; E11.22 Type 2 diabetes mellitus with diabetic chronic kidney disease; Z99.2 Dependence on renal dialysis; Z95.1 Presence of aortocoronary bypass graft; D69.6 Thrombocytopenia, unspecified; I45.10 Unspecified right bundle-branch block; D72.819 Decreased white blood cell count, unspecified; Z95.0 Presence of cardiac pacemaker
CPT/HCPCS: 36415; 71045; 80048; 80076; 82947; 83735; 83880; 84100; 84484; 85025; 85610; 87804; 90935; 93005; 93307; 94640; 94760; 99285; J0360; J0610; J1644

== ENCOUNTER 2019-07-30 07:27 | Observation (INO) | payer OTHER ==
--- OUTSIDE RECORDS SUMMARY | 2019-07-30 07:30 | XMS REPORT ---
:1955 Author Organization [facility] t Address [address] [place] [address] Dr. Beebe [address] [place] [id number] Care Team Providers Name Role Phone Unavailable Unavailable Unavailable Problems This patient has no known problems. Allergies, Adverse Reactions, Alerts This patient has no known allergies or adverse reactions. Medications This patient has no known medications. Encounters Start End Encounter Admission Attending Care Care Encounter Date/Time Date/Time Type Type Clinicians Facility Department ID 2018-09-18 [facility] [id number] 08:26:04 2018-01-22 2018-01-22 Emergency E [facility] [id number] 16:17:00 16:17:00
[2019-07-30 08:21] LABS: Basophils % 0.1 % (0-1.3); Hematocrit 29.9 % (36.0-45.0); Lymphocytes % 26.1 % (15.3-44.8); MPV 8.5 fL (7.6-11.3); RBC Red Blood Cell Count 3.08 M/uL (3.86-4.86)
[2019-07-30 08:22] LABS: Protime INR 0.98
[2019-07-30 08:48] LABS: Albumin 3.4 g/dL (3.4-5.0); Bilirubin Direct 0.2 mg/dL (0-0.2); Bilirubin Total 0.4 mg/dL (0.2-1.0); Magnesium 2.9 mg/dL (1.8-2.4); Potassium 4.4 mmol/L (3.5-5.1); Protein, Total 8.1 g/dL (6.4-8.2); Troponin (Emerg Dept Use Only) 0.41 ng/mL (0.0-0.045)
--- NOTE | 2019-07-30 09:28 | EDPHYS ---
Physician Documentation [facility] Name: Qiana Valdez Age: 63 yrs Sex: Female : 1955 Arrival Date: 07/30/2019 Time: 07:30 Bed 14 Private MD: ED Physician Adam Lau HPI: 07/29 07:52 This 63 yrs old Female presents to ER via Wheelchair with complaints of Chest snw Pressure. 07:52 Onset: The symptoms/episode began/occurred pt states yesterday she started to have some snw chest pressure, tried to sleep, awoke SOB, states pressure not worsening but constant, states during the night she started to have some right flank pain. Pt went to dialysis this am but was sent to ED second to chest pressure. Denies fever. Pt with hx open heart surgery in 2016.. Associated signs and symptoms: Pertinent positives: chest pain, congestion, shortness of breath. The patient has experienced a previous episode. The patient has not recently seen a physician. rec's dialysis at [facility]. Historical: - Allergies: 07:41 No Known Allergies; aa5 - PMHx: 07:41 Chronic ischemic heart disease; Diabetes - IDDM; ESRD; GERD; High Cholesterol; aa5 hyperparathyroidism; Hypertension; IRON DEFICIENCY ANEMIA; Myocardial infarction; - PSHx: 07:41 Pacemaker; CABG; Heart stents; aa5 - Immunization history:: Flu vaccine is up to date. - Social history:: Smoking status: Patient denies any tobacco usage or history of. ROS: 07:50 Eyes: Negative for injury, pain, redness, and discharge, ENT: Negative for injury, snw pain, and discharge, Neck: Negative for injury, pain, and swelling. 07:50 Abdomen/GI: Negative for abdominal pain, nausea, vomiting, diarrhea, and constipation. 07:50 : Negative for injury, bleeding, discharge, and swelling, MS/Extremity: Negative for injury and deformity, Skin: Negative for injury, rash, and discoloration, Neuro: Negative for headache, weakness, numbness, tingling, and seizure, Psych: Negative for depression, anxiety, suicide ideation, homicidal ideation, and hallucinations. 07:50 Constitutional: Positive for body aches. 07:50 Cardiovascular: Positive for chest pain, paroxysmal nocturnal dyspnea. 07:50 Respiratory: Positive for dyspnea on exertion, Negative for cough. 07:50 Back: Positive for flank pain, on the right. Exam: 07:50 Constitutional: This is a well developed, well nourished patient who is awake, alert, snw and in no acute distress. Head/Face: Normocephalic, atraumatic. Eyes: Pupils equal round and reactive to light, extra-ocular motions intact. Lids and lashes normal. Conjunctiva and sclera are non-icteric and not injected. Cornea within normal limits. Periorbital areas with no swelling, redness, or edema. ENT: Nares patent. No nasal discharge, no septal abnormalities noted. Tympanic membranes are normal and external auditory canals are clear. Oropharynx with no redness, swelling, or masses, exudates, or evidence of obstruction, uvula midline. Mucous membranes moist. Neck: Trachea midline, no thyromegaly or masses palpated, and no cervical lymphadenopathy. Supple, full range of motion without nuchal rigidity, or vertebral point tenderness. No Meningismus. Chest/axilla: Normal chest wall appearance and motion. Nontender with no deformity. No lesions are appreciated. 07:50 Respiratory: Lungs have equal breath sounds bilaterally, clear to auscultation and percussion. No rales, rhonchi or wheezes noted. No increased work of breathing, no retractions or nasal flaring. Abdomen/GI: Soft, non-tender, with normal bowel sounds. No distension or tympany. No guarding or rebound. No evidence of tenderness throughout. Back: No spinal tenderness. No costovertebral tenderness. Full range of motion. Skin: Warm, dry with normal turgor. Normal color with no rashes, no lesions, and no evidence of cellulitis. MS/ Extremity: Pulses equal, no cyanosis. Neurovascular intact. Full, normal range of motion. Neuro: Awake and alert, GCS 15, oriented to person, place, time, and situation. Cranial nerves II-XII grossly intact. Motor strength 5/5 in all extremities. Sensory grossly intact. Cerebellar exam normal. Normal gait. Psych: Awake, alert, with orientation to person, place and time. Behavior, mood, and affect are within normal limits. 07:50 Cardiovascular: Rate: normal, Rhythm: regular, Pulses: no pulse deficits are appreciated, Heart sounds: murmur, systolic, grade 3 over 6, Edema: is not appreciated, JVD: is noted bilaterally, to 1 cm. Vital Signs: 07:35 BP 140 / 63; Pulse 63; Resp 18 S; Temp 97.9(O); Pulse Ox 99% on R/A; Weight 71.5 kg aa5 (R); Height 5 ft. 3 in. (160.02 cm) (R); Pain 8/10; 09:21 BP 135 / 65; Pulse 60; Resp 16 S; Pulse Ox 98% on R/A; Pain 8/10; iw 10:18 BP 134 / 62; Pulse 60; Resp 14; Pulse Ox 92% on R/A; ca1 11:34 BP 143 / 67; Pulse 60; Resp 14 S; Pulse Ox 94% on R/A; ca1 12:19 BP 136 / 64; Pulse 60; Resp 15 S; Pulse Ox 98% on R/A; ca1 07:35 Body Mass Index 27.92 (71.50 kg, 160.02 cm) aa5 MDM: 07:45 Patient medically screened. snw 09:27 Data reviewed: vital signs, nurses notes. Data interpreted: Pulse oximetry: on room air snw is 98 %. Interpretation: normal. Counseling: I had a detailed discussion with the patient and/or guardian regarding: the historical points, exam findings, and any diagnostic results supporting the discharge/admit diagnosis, the presence of at least one elevated blood pressure reading (>120/80) during this emergency department visit, lab results, radiology results, the need for further work-up and treatment in the hospital. Physician consultation: Shannon Christie MD was called at 09:28, regarding admission, to the telemetry unit. Admission orders: after a detailed discussion of the patient's condition and case, the admit orders are written by me. 10:11 Physician consultation: was contacted at 10:11, would like medications started, nitro. snw 07/29 07:45 Order name: Basic Metabolic Panel; Complete Time: 08:56 snw 07/29 07:45 Order name: CBC with Diff; Complete Time: 08:32 snw 07/29 07:45 Order name: LFT's; Complete Time: 08:56 snw 07/29 07:45 Order name: Magnesium; Complete Time: 08:56 snw 07/29 07:45 Order name: NT PRO-BNP; Complete Time: 08:56 snw 07/29 07:45 Order name: PT-INR; Complete Time: 08:32 snw 07/29 07:45 Order name: Troponin (emerg Dept Use Only); Complete Time: 08:56 snw 07/29 11:31 Order name: CBC with Automated Diff [facility] 07/29 11:31 Order name: CBC with Automated Diff [facility] 07/29 11:31 Order name: Comprehensive Metabolic Panel [facility] 07/29 11:31 Order name: Comprehensive Metabolic Panel [facility] 07/29 11:31 Order name: Troponin I [facility] 07/29 11:31 Order name: Troponin I; Complete Time: 12:42 EDMS 07/29 11:31 Order name: Troponin I [facility] 07/29 07:45 Order name: XRAY Chest (1 view); Complete Time: 09:41 snw 07/29 07:45 Order name: EKG; Complete Time: 07:46 snw 07/29 07:45 Order name: Cardiac monitoring; Complete Time: 08:13 snw 07/29 07:45 Order name: EKG - Nurse/Tech; Complete Time: 08:13 snw 07/29 07:45 Order name: IV Saline Lock; Complete Time: 08:13 snw 07/29 07:45 Order name: Labs collected and sent; Complete Time: 08:13 snw 07/29 07:45 Order name: O2 Per Protocol; Complete Time: 08:13 snw 07/29 07:45 Order name: O2 Sat Monitoring; Complete Time: 08:13 snw 07/29 10:10 Order name: consult Order-Dialysis [facility] 07/29 11:31 Order name: CONS Pharmacy Consult [facility] 07/29 11:31 Order name: CONS Physician Consult [facility] 07/29 11:31 Order name: CONS Physician Consult [facility] 07/29 11:31 Order name: Renal [facility] Administered Medications: 09:30 Drug: morphine 4 mg Route: IVP; Site: left antecubital; iw 10:34 Drug: Nitroglycerin 0.4 mg Route: Sublingual; ca1 Disposition: 18:24 Co-signature as Attending Physician, Adam Lau MD. rn Disposition: 07/30/19 09:27 Hospitalization ordered by Shannon Christie for Observation. Preliminary diagnosis is Chest pain, unspecified. - Bed requested for Telemetry/MedSurg (observation). - Status is Observation. ca1 - Condition is Stable. - Problem is new. - Symptoms have worsened. Signatures: Dispatcher [employer] EDMS Sarah Deleon Karoline Alonso, LEAD PROGRAMMER ANALYST-C LEAD PROGRAMMER ANALYST-Csnw Yvrose Fonseca, RN RN iw Adam Lau MD MD rn Calderon, Audri, RN RN aa5 Flower Pratt RN RN ca1 Corrections: (The following items were deleted from the chart) 08:55 07:49 Accucheck ordered. snw aa5 12:13 09:27 Hospitalization Ordered by Shannon Christie MD for Observation. Preliminary bd diagnosis is Chest pain, unspecified. Bed requested for Telemetry/MedSurg (observation). Status is Observation. Condition is Stable. Problem is new. Symptoms have worsened. [facility] 13:06 12:13 07/30/2019 09:27 Hospitalization Ordered by Shannon Christie MD for Observation. ca1 Preliminary diagnosis is Chest pain, unspecified. Bed requested for Telemetry/MedSurg (observation). Status is Observation. Condition is Stable. Problem is new. Symptoms have worsened. bd
--- NOTE | 2019-07-30 09:28 | ER ---
Nurse's Notes [facility] Name: Qiana Valdez Age: 63 yrs Sex: Female : 1955 Arrival Date: 07/30/2019 Time: 07:30 Bed 14 Private MD: Diagnosis: Chest pain, unspecified Presentation: 07/29 07:35 Chief complaint: Patient states: chest pressure that began yesterday. Pt also reports aa5 SOB. Denies Nausea/denies vomiting. Reports last dialysis was Tuesday. 07:35 Coronavirus screen: Proceed with normal triage. Patient denies a cough. Patient denies aa5 shortness of breath or difficulty breathing. Patient denies measured and/or subjective temperature greater than 100.4F prior to today's visit. Patient denies travel on a cruise ship or to a country the [facility] currently lists as an affected area. Patient denies contact with known and/or suspected case of COVID-19. Ebola Screen: Patient negative for fever greater than or equal to 101.5 degrees Fahrenheit, and additional compatible Ebola Virus Disease symptoms. Initial Sepsis Screen: Does the patient meet any 2 criteria? No. Patient's initial sepsis screen is negative. Does the patient have a suspected source of infection? No. Patient's initial sepsis screen is negative. Risk Assessment: Do you want to hurt yourself or someone else? Patient reports no desire to harm self or others. Onset of symptoms was July 2019. 07:35 Acuity: SIXTO 3 aa5 07:35 Method Of Arrival: Wheelchair aa5 Historical: - Allergies: 07:41 No Known Allergies; aa5 - PMHx: 07:41 Chronic ischemic heart disease; Diabetes - IDDM; ESRD; GERD; High Cholesterol; aa5 hyperparathyroidism; Hypertension; IRON DEFICIENCY ANEMIA; Myocardial infarction; - PSHx: 07:41 Pacemaker; CABG; Heart stents; aa5 - Immunization history:: Flu vaccine is up to date. - Social history:: Smoking status: Patient denies any tobacco usage or history of. Screenin:45 Abuse screen: Denies threats or abuse. Nutritional screening: No deficits noted. aa5 Tuberculosis screening: No symptoms or risk factors identified. Fall Risk None identified. Assessment: 07:45 General: Appears uncomfortable, Behavior is calm, cooperative. Pain: Complains of pain aa5 in mid-sternal area Pain does not radiate. Pain currently is 8 out of 10 on a pain scale. Quality of pain is described as pressure, Pain began 1 day ago. Is continuous. Neuro: Level of Consciousness is awake, alert, obeys commands, Oriented to person, place, time, situation. Cardiovascular: Heart tones S1 S2 present Rhythm is regular Dialysis shunt: in the right arm, with palpable thrill, with auscultated bruit, with no erythema, with no edema, no bleeding noted. Respiratory: Airway is patent Respiratory effort is even, unlabored, Respiratory pattern is regular, symmetrical. GI: Abdomen is round non-distended, Bowel sounds present X 4 quads. Abd is soft and non tender X 4 quads. : No signs and/or symptoms were reported regarding the genitourinary system. EENT: No signs and/or symptoms were reported regarding the EENT system. Derm: Skin is pink, warm \T\ dry. Musculoskeletal: Range of motion: intact in all extremities. 09:22 Reassessment: Patient appears in no apparent distress at this time. Patient and/or iw family updated on plan of care and expected duration. Pain level reassessed. Patient is alert, oriented x 3, equal unlabored respirations, skin warm/dry/pink. pt states she is still having midsternal chest pressure rated 8/10, started yesterday, was sent here from dialysis. 10:35 Reassessment: Dr. Ford at bedside, ordered to give Nitro SL. ca1 11:00 Reassessment: Patient appears in no apparent distress at this time. Patient and/or iw family updated on plan of care and expected duration. Pain level reassessed. Patient is alert, oriented x 3, equal unlabored respirations, skin warm/dry/pink. Patient denies pain at this time. Patient states feeling better. 11:34 Reassessment: Patient appears in no apparent distress at this time. Patient and/or ca1 family updated on plan of care and expected duration. Pain level reassessed. Patient is alert, oriented x 3, equal unlabored respirations, skin warm/dry/pink. Vital Signs: 07:35 BP 140 / 63; Pulse 63; Resp 18 S; Temp 97.9(O); Pulse Ox 99% on R/A; Weight 71.5 kg aa5 (R); Height 5 ft. 3 in. (160.02 cm) (R); Pain 8/10; 09:21 BP 135 / 65; Pulse 60; Resp 16 S; Pulse Ox 98% on R/A; Pain 8/10; iw 10:18 BP 134 / 62; Pulse 60; Resp 14; Pulse Ox 92% on R/A; ca1 11:34 BP 143 / 67; Pulse 60; Resp 14 S; Pulse Ox 94% on R/A; ca1 12:19 BP 136 / 64; Pulse 60; Resp 15 S; Pulse Ox 98% on R/A; ca1 07:35 Body Mass Index 27.92 (71.50 kg, 160.02 cm) aa5 ED Course: 07:30 Patient arrived in ED. as 07:41 Arm band placed on. aa5 07:42 Triage completed. aa5 07:43 Karoline Mcarthur FNP-C is PHCP. snw 07:43 Adam Lau MD is Attending Physician. snw 07:45 Patient has correct armband on for positive identification. Placed in gown. Bed in low aa5 position. Call light in reach. Side rails up X2. front desk monitor on. Pulse ox on. NIBP on. 07:50 Vanessa Cardoso RN is Primary Nurse. aa5 08:00 EKG done, by ED staff, reviewed by Karoline ALFONSO. dh3 08:05 XRAY Chest (1 view) In Process Unspecified. EDMS 08:06 Initial lab(s) drawn, by co, sent to lab. Inserted saline lock: 20 gauge in left dh3 antecubital area, using aseptic technique. Blood collected. 08:30 Report given to Yvrose Fonseca RN. aa5 08:46 No provider procedures requiring assistance completed. Patient maintains SpO2 aa5 saturation greater than 95% on room air. 09:27 Shannon Christie MD is Hospitalizing Provider. snw 12:40 Patient admitted, IV remains in place. ca1 Administered Medications: 09:30 Drug: morphine 4 mg Route: IVP; Site: left antecubital; iw 10:34 Drug: Nitroglycerin 0.4 mg Route: Sublingual; ca1 Outcome: 09:27 Decision to Hospitalize by Provider. snw 12:40 Admitted to Med/surg accompanied by kandice, via stretcher, room 207, with chart, Report ca1 called to SUNITA Crane 12:40 Condition: stable 12:40 Instructed on the need for admit. 13:06 Patient left the ED. ca1 Signatures: Dispatcher [employer] EDMS Karoline Mcarthur, STITCH BONDING MACHINE TENDER-C STITCH BONDING MACHINE TENDER-Csnw Lynda Bah Irene, RN RN iw Vanessa Cardoso RN RN aa5 Katie Espinosa [facility] Flower Pratt RN RN ca1 Corrections: (The following items were deleted from the chart) 07:43 07:35 Chief complaint: Patient states: chest pressure that began yesterday. Pt also aa5 reports SOB. Denies Nausea/denies vomiting. aa5
[2019-07-30] MEDS ORDERED: MORPHINE 4 MG/ML SYR ONE (09:32)
--- NOTE | 2019-07-30 09:36 | RAD REPORT ---
EXAM DESCRIPTION: Samuel Single View07/30/2019 8:02 am CLINICAL HISTORY: Chest pain COMPARISON: 2019 FINDINGS: The lungs appear clear of acute infiltrate. The heart is moderately enlarged. Pacemaker l esteban in place Postsurgical changes involve the chest. IMPRESSION: No acute abnormalities displayed
[2019-07-30] MEDS ORDERED: NITROGLYCERIN 0.4 MG/TAB SL ONE (10:24)
[2019-07-30] MEDS ORDERED: ONDANSETRON 4 MG/2 ML VIAL IV PRN (11:26)
[2019-07-30] MEDS ORDERED: ALBUTEROL 2.5 MG/3 ML NEB SOL NEB PRN (11:26)
[2019-07-30] MEDS ORDERED: HYDRALAZINE HCL 20 MG/ML VIAL IV PRN (11:29)
[2019-07-30] MEDS ORDERED: hydrOXYzine HCL 25 MG TAB PO PRN (11:30)
[2019-07-30] MEDS: INSULIN -REGULAR HUMAN 50 UNIT/0.5 ML ML SQ SCH ×3 (11:30→21:00)
--- NOTE | 2019-07-30 11:37 | P.HP ---
Certification for Inpatient Patient admitted to: Observation With expected LOS: <2 Midnights Patient will require the following post-hospital care: None Practitioner: I am a practitioner with admitting privileges, knowledge of patient current condition, hospital course, and medical plan of care. Services: Services provided to patient in accordance with Admission requirements found in Title 42 Section 412.3 of the Code of Federal Regulations Patient History Date of Service: 07/30/19 Reason for admission: LEFT CHEST PAIN History of Present Illness: 63-year-old female past medical history of HTN, dm, CAD, status post multiple PCIs, CHF, status post AICD, ESRD on HD MWF presented to the ER after developing chest pain while on a way to dialysis this morning. On arrival in dialysis she was noted to have worsening chest pain and she was not started on dialysis percent to the ER. She described chest pain and left chest did sharp radiating to the midsternal area. Chest pain is similar to previous episodes. She has a history of angioplasty with PCI 2 years ago. She denies any headache, shortness of breath or nausea or vomiting. She admits to feeling anxiety and as recently ran out of her anxiety medication -atarax. Pain was improved with IV morphine given in the emergency room. She described pain now at 5/10 from this gaxiola of 10/10. She has been given sublingual nitro at the time of interview. Her lab shows unremarkable EKG but mild elevated troponin of 0.4 Allergies No Known Allergies Allergy (Verified 02/18/19 04:59) Home Medications: Albuterol Sulfate [Albuterol Sulfate Hfa] 1 - 2 inh IH Q6H 02/18/19 Aspirin Chewable [Aspirin Chewable*] 81 mg PO DAILY 02/18/19 Clopidogrel Bisulfate [Plavix*] 75 mg PO DAILY 02/18/19 Doxazosin [Cardura*] 4 mg PO BID 02/18/19 Hydralazine [Apresoline*] 25 mg PO TID 02/18/19 Metoclopramide HCl 5 mg PO AC 02/18/19 Metoprolol Tartrate [Lopressor*] 25 mg PO BID 02/18/19 Pantoprazole [Protonix Tab*] 40 mg PO DAILY 02/18/19 Sevelamer Carbonate [Renvela*] 800 mg PO TIDWM 02/18/19 carvediloL [Carvedilol] 25 mg PO BID 02/18/19 - Past Medical/Surgical History Has patient received pneumonia vaccine in the past: No Diabetic: Yes -: HTN -: NIDDM -: ESRD - MWF -: Nonfuctioning LLE fistula -: HLD -: GERD -: chronic ischemic heart disease -: hyperparathyroidism -: anemia -: iron deficiency -: Triple bypass 2016 -: Pacemaker -: Tubal ligation -: Fistula aneursym reconstruction 4 times -: Bilateral cataract surgery - Family History Family History: Reviewed- Non-Contributory - Social History Smoking Status: Unknown if ever smoked Smoking therapy provided: No Alcohol use: No CD- Drugs: No Caffeine use: No Place of Residence: Home Review of Systems General: Unremarkable Eyes: Unremarkable Respiratory: Unremarkable Cardiovascular: Chest Pain Gastrointestinal: Unremarkable Genitourinary: Unremarkable Musculoskeletal: Unremarkable Neurological: Weakness, Numbness Physical Examination - Physical Exam General: Alert, In no apparent distress, Oriented x3, Obese HEENT: Atraumatic, Normocephalic, PERRLA Neck: Supple, 2+ carotid pulse no bruit, JVD not distended Respiratory: Clear to auscultation bilaterally, Normal air movement Cardiovascular: No edema, Normal pulses, Regular rate/rhythm, Normal S1 S2, Other (left AVF- good bruit and thrill, reproducible left-sided chest tenderness) Gastrointestinal: Normal bowel sounds, Soft and benign, Non-distended Musculoskeletal: No swelling, No contractures Integumentary: No rashes, No breakdown Neurological: Normal speech, Normal strength at 5/5 x4 extr - Studies Laboratory Data (last 24 hrs) 07/30/19 08:06: PT 11.6, INR 0.98 07/30/19 08:06: WBC 3.7 L, Hgb 9.9 L, Hct 29.9 L, Plt Count 115 L 07/30/19 08:06: Sodium 137, Potassium 4.4, BUN 83 H, Creatinine 8.63 H*, Glucose 138 H, Magnesium 2.9 H D, Total Bilirubin 0.4, AST 33, ALT 49, Alkaline Phosphatase 120 H Assessment and Plan - Problems (Diagnosis) (1) Chest pain Current Visit: Yes Status: Acute (2) End-stage renal disease on hemodialysis Current Visit: No Status: Chronic (3) Type 2 diabetes mellitus Current Visit: No Status: Chronic Qualifiers: (4) Uncontrolled hypertension Current Visit: No Status: Chronic - Advance Directives Does patient have a Living Will: No Does patient have a Durable POA for Healthcare: Yes Physician Review: Patient Assessed, Agree with Above Assessment and Plan Physician Review Additional Text: Left-sided chest pain-possibly due to acute coronary syndrome although atypical giving reproducible tenderness. -will follow serial set of cardiac enzymes. -Given multiple risk factors, will consult Cardiology -elevated troponin may also be due to ESRD, follow repeat troponin was dialysis -follow resp forms of chest pain to sublingual nitro. -will start subcutaneous heparin. -continue aspirin and Plavix HTN-blood pressure control, resume home regimen -continue metoprolol DM-diet controlled, start Accu-Cheks with insulin sliding ski History of CHF/AICD C2-will place in telemetry, we need large ultrafiltration with dialysis today Elevated BNP noted DVT prophylaxis-subcutaneous heparin Q 12 ESRD-will consult Nephrology to reinitiate dialysis today Advanced directive-full code discussed Time Spent Managing Pts Care (In Minutes): 65
[2019-07-30] MEDS: METOCLOPRAMIDE 5 MG TAB PO SCH ×2 (12:00→17:15)
[2019-07-30] MEDS: IPRATROPIUM BROM 0.5MG/2.5ML NEB SCH ×3 (14:25→21:40)
[2019-07-30] MEDS: MORPHINE 2 MG/ML SYR IV PRN ×2 (17:09→21:41)
--- NOTE | 2019-07-30 20:12 | EKG ---
Test Date: 2019-07-30 Test Time: 07:57:32 Racing Secretary And Handicapper: TIFFANY MEASUREMENT RESULTS: Intervals: Rate: 60 [place]: 186 QRSD: 92 QT: 492 QTc: 492 [place]: P: 99 [place]: 186 QRS: 20 T: 185 INTERPRETIVE STATEMENTS: Atrial-paced rhythm RSR' or QR pattern in V1 suggests right ventricular conduction delay Moderate voltage criteria for LVH, may be normal variant ST & T wave abnormality, consider inferolateral ischemia Prolonged QT Abnormal ECG Compared to ECG 02/17/2019 18:40:14 RSR' in V1 or V2 now present Left ventricular hypertrophy now present Sinus rhythm no longer present Incomplete right bundle-branch block no longer present ST (T wave) deviation still present Possible ischemia still present Electronically Signed On 07-30-19 20:11:02 CDT by Papi Mi
[2019-07-30] MEDS ORDERED: METOPROLOL TAR 25 MG TAB PO SCH (21:00)
[2019-07-30] MEDS: HEPARIN 5000 UNIT/ML 1 ML VIAL SQ SCH (21:40)
[2019-07-30] MEDS: DOXAZOSIN 4 MG TAB PO SCH (21:40)
[2019-07-30] MEDS: carvediloL 25 MG TAB PO SCH (21:41)
--- NOTE | 2019-07-31 01:21 | PN ---
Date of Progress Note: 07/30/2019 Chief Complaint: End-stage renal disease, on dialysis. History Of Present Illness: Patient has multiple medical problems including diabetic kidney disease, hypertension, coronary artery disease status post PCI, congestive heart failure, status post AICD, s ystolic dysfunction, end-stage renal disease on dialysis 3 times per week on Tuesday, Tuesday, and . The patient came to the hospital, she was referred from [facility] when she developed ch est pain and tightness. On arrival to dialysis, she was noted to have worsening of chest pain, was c omplaining of midsternal area pain of squeezing high characteristics. Patient had episode with simil ar symptoms before. Patient previously was seen by ecology professor, underwent angioplasty with PCI 2 ye ars ago. She denies headache and denies PND, orthopnea. Denies syncope. She was admitted to the [facility] and received medication for anxiety and workup was initiated to rule out acute coronary artery syndrome. Patient was medicated with IV morphine. Patient has some fluid overload and dialysis was started in the hospital. Patient tolerated dialysis. Review of Systems: General: The patient is asymptomatic. She denies PND, orthopnea. Denies fever, chills. Eyes: Denies vision changes. Ears, Nose, Mouth, and Throat: Denies sore throat, earaches. Respiratory: Denies cough, wheezing. GI: Denies nausea, vomiting. : Denies dysuria, hematuria. Musculoskeletal: Complaining of some chest pain, but it resolved after treatment with medication. All other systems reviewed and all are negative. Past Medical History: Hypertension; [id number] diabetes mellitus; end-stage renal disease dialysis on Tuesday, Tuesday, Tuesday; GERD; ischemic heart disease; coronary artery disease; conges tive heart failure, systolic dysfunction; triple bypass in 2016; iron deficiency; pacemaker; tubal li gation; fistula and has required reconstruction 4 times; bilateral cataract surgery. Social History: Denies tobacco, alcohol, or illicit drug use. Family History: No kidney disease in the family. Physical Examination: General: Patient is awake, alert, follows commands. Eyes: Anicteric sclerae. EOMI. Ears, Nose, Mouth and Throat: Oral mucosa moist. No pallor. Neck: Supple. No bruits. Lungs: Clear to auscultation bilaterally. Heart: S1, S2. No pericardial friction rub. Abdomen: Soft, benign, nontender. Extremities: Slight edema. Laboratory Data: WBC 3.7, hemoglobin 9.9, hematocrit 29.9, platelet count 115. Sodium 147, potassiu m 4.4, BUN 83, creatinine 8.63, glucose 138, magnesium 2.9. Impression And Plan: 1.Chest pain. The patient is undergoing workup to rule out acute coronary syndrome, mild fluid over load, uncontrolled hypertension. The patient will have dialysis to control fluid overload. Obtain n egative fluid balance and treat congestive heart failure with diastolic dysfunction. 2.Hypertension. Continue blood pressure medication. 3.Renal osteodystrophy. Continue renal diet and binders. 4.Anemia. Continue MELA. EB/MODL Voice ID: [id number] Report ID: [id number]
[2019-07-31] MEDS: IPRATROPIUM BROM 0.5MG/2.5ML NEB SCH ×2 (01:30→07:55)
[2019-07-31 04:28] LABS: Absolute Lymphocytes (CBC) 1.1 K/uL (0.7-4.9); Basophils % 1.7 % (0-1.3); Hematocrit 27.8 % (36.0-45.0); Lymphocytes % 38.4 % (15.3-44.8); MPV 8.5 fL (7.6-11.3); RBC Red Blood Cell Count 2.84 M/uL (3.86-4.86)
[2019-07-31 05:13] LABS: Blood Morphology Comment NOT SEEN (NOT SEEN); Platelet Estimate DECR; Urine White Blood Cell Casts OK
[2019-07-31 05:23] VITALS: BMI 28.5
[2019-07-31 05:34] LABS: Albumin 3.1 g/dL (3.4-5.0); Bilirubin Total 0.4 mg/dL (0.2-1.0); Potassium 4.3 mmol/L (3.5-5.1); Protein, Total 7.8 g/dL (6.4-8.2)
[2019-07-31] MEDS: INSULIN -REGULAR HUMAN 50 UNIT/0.5 ML ML SQ SCH ×2 (07:30→11:30)
[2019-07-31] MEDS ORDERED: REGADENOSON 0.4 MG/5 ML SYR IV ONE (08:11)
[2019-07-31] MEDS: DOXAZOSIN 4 MG TAB PO SCH (09:00)
[2019-07-31] MEDS ORDERED: ASPIRIN 81 MG CHEWABLE TABLET PO SCH (09:00)
[2019-07-31] MEDS ORDERED: PANTOPRAZOLE 40MG TABLET PO SCH (09:00)
[2019-07-31] MEDS ORDERED: CLOPIDOGREL 75 MG TABLET PO SCH (09:00)
[2019-07-31] MEDS: METOCLOPRAMIDE 5 MG TAB PO SCH ×2 (09:07→11:46)
[2019-07-31] MEDS: HEPARIN 5000 UNIT/ML 1 ML VIAL SQ SCH (09:09)
[2019-07-31] MEDS ORDERED: DOXAZOSIN 2 MG TAB ONE (09:10)
[2019-07-31] MEDS ORDERED: EPOETIN 4,000 UNIT/ML VIAL IV SCH (10:30)
[2019-07-31 11:46] VITALS: BP 174/80
[2019-07-31] MEDS: carvediloL 25 MG TAB PO SCH (11:46)
--- NOTE | 2019-07-31 11:51 | RAD REPORT ---
EXAM DESCRIPTION: NM - Rest Stress Cardiac Imaging - 07/31/2019 11:42 am CLINICAL HISTORY: Chest pain COMPARISON: None. TECHNIQUE: The patient was administered 10.1 mCi of Tc 99m Sestamibi prior to resting SPECT imaging of the heart. The patient was then administered 31.1 mCi of Tc 99m Sestamibi following exercise or ph armacologic stress. Multiplanar SPECT images were reviewed. FINDINGS: The end diastolic volume is 152 ml, the end systolic volume is 86 ml, and the ejection fra ction is 43 %. No stress-induced ischemic changes can be confirmed. No significant differential in activity between the rest and stress sequences. No scarred myocardium seen. IMPRESSION: No stress-induced ischemic change could be confirmed. End-diastolic volume is enlarged at 1:00 52 mL. Ejection fraction is below normal at 43%.
[2019-07-31 12:04] VITALS: O2SAT 97
[2019-07-31 12:06] VITALS: TEMP 97.8
--- NOTE | 2019-07-31 12:08 | P.DS ---
Admission Date: 07/30/19 Discharge Date: 07/31/19 Disposition: ROUTINE DISCHARGE Discharge Condition: FAIR Reason for Admission: LEFT CHEST PAIN - Problems (1) Chest pain Current Visit: Yes Status: Acute (2) End-stage renal disease on hemodialysis Current Visit: No Status: Chronic (3) Type 2 diabetes mellitus Current Visit: No Status: Chronic Qualifiers: (4) Uncontrolled hypertension Current Visit: No Status: Chronic Brief History of Present Illness: 63-year-old female past medical history of HTN, dm, CAD, status post multiple PCIs, CHF, status post AICD, ESRD on HD MWF presented to the ER after developing chest pain while on a way to dialysis this morning. On arrival in dialysis she was noted to have worsening chest pain and she was not started on dialysis percent to the ER. She described chest pain and left chest did sharp radiating to the midsternal area. Chest pain is similar to previous episodes. She has a history of angioplasty with PCI 2 years ago. She denies any headache, shortness of breath or nausea or vomiting. She admits to feeling anxiety and as recently ran out of her anxiety medication -atarax. Pain was improved with IV morphine given in the emergency room. She described pain now at 5/10 from this gaxiola of 10/10. She has been given sublingual nitro at the time of interview. Her lab shows unremarkable EKG but mild elevated troponin of 0.4 Hospital Course: Patient on admission was noted with chest pain, she was evaluated by Cardiology. She had a nuclear medicine stress test which was reportedly negative with slightly reduced ejection fraction. She was seen by Nephrology and underwent hemodialysis. Patient chest pain has improved now. She had a transient episode of nausea which has also resolved. She will be discharged home today. She was noted with persistent elevated blood pressure on isosorbide has been added to her blood pressure regimen Vital Signs/Physical Exam: Temp Pulse Resp BP Pulse Ox 97.8 F 63 16 174/80 H 97 07/31/19 12:00 07/31/19 12:00 07/31/19 12:00 07/31/19 12:00 07/31/19 12:00 General: Alert, In no apparent distress, Oriented x3 HEENT: Atraumatic, Normocephalic Neck: Supple, 2+ carotid pulse no bruit, JVD not distended Respiratory: Clear to auscultation bilaterally, Normal air movement Cardiovascular: Normal pulses, Regular rate/rhythm, Normal S1 S2 Capillary refill: <2 Seconds Gastrointestinal: Normal bowel sounds, Soft and benign, Non-distended, No tenderness Musculoskeletal: No clubbing, No swelling Neurological: Normal speech, Normal strength at 5/5 x4 extr Laboratory Data at Discharge: WBC 2.8 K/uL (4.3-10.9) L D 07/31/19 03:38 Hgb 9.2 g/dL (12.0-15.0) L 07/31/19 03:38 Hct 27.8 % (36.0-45.0) L 07/31/19 03:38 Plt Count 96 K/uL (152-406) L 07/31/19 03:38 PT 11.6 SECONDS (9.5-12.5) 07/30/19 08:06 INR 0.98 07/30/19 08:06 Sodium 136 mmol/L (136-145) 07/31/19 03:38 Potassium 4.3 mmol/L (3.5-5.1) 07/31/19 03:38 BUN 45 mg/dL (7-18) H D 07/31/19 03:38 Creatinine 5.67 mg/dL (0.55-1.3) H* D 07/31/19 03:38 Glucose 142 mg/dL (74-106) H 07/31/19 03:38 Magnesium 2.9 mg/dL (1.8-2.4) H D 07/30/19 08:06 Total Bilirubin 0.4 mg/dL (0.2-1.0) 07/31/19 03:38 AST 27 U/L (15-37) 07/31/19 03:38 ALT 44 U/L (12-78) 07/31/19 03:38 Alkaline Phosphatase 111 U/L (45-117) 07/31/19 03:38 Troponin I 0.36 ng/mL (0.0-0.045) H 07/30/19 15:35 Home Medications: Albuterol Sulfate [Albuterol Sulfate Hfa] 1 - 2 inh IH Q6H 02/18/19 Aspirin Chewable [Aspirin Chewable*] 81 mg PO DAILY 02/18/19 Clopidogrel Bisulfate [Plavix*] 75 mg PO DAILY 02/18/19 Doxazosin [Cardura*] 4 mg PO BID 02/18/19 Hydralazine [Apresoline*] 25 mg PO TID 02/18/19 Metoclopramide HCl 5 mg PO AC 02/18/19 Metoprolol Tartrate [Lopressor*] 25 mg PO BID 02/18/19 Pantoprazole [Protonix Tab*] 40 mg PO DAILY 02/18/19 Sevelamer Carbonate [Renvela*] 800 mg PO TIDWM 02/18/19 carvediloL [Carvedilol] 25 mg PO BID 02/18/19 Isosorbide Mononitrate [Isosorbide Mononitrate ER] 30 mg PO DAILY #30 tab.er.24h 07/31/19 New Medications: Isosorbide Mononitrate [Isosorbide Mononitrate ER] 30 mg PO DAILY #30 tab.er.24h Activity: Bedrest Physician Review: Patient Assessed, Agree with Above Assessment and Plan Time spent managing pt's care (in minutes): 35
--- NOTE | 2019-07-31 12:36 | PN ---
Date of Progress Note: 07/31/2019 Ms. Valdez was admitted and seen on 07/30/2019 because of chest pain. She has a history of end-stage renal disease, on hemodialysis. She has a history of CABG, pacemaker placement, hypertension, COPD, gastroesophageal reflux disease and dyslipidemia. Overnight, she did not have any more chest pain. Her troponin was elevated at 0.36 and 0.41, which is chronic for her. These were the same numbers I saw, I believe in October of 2018. At that time, catheterization showed patent graft to the RCA, OM, an d the BAUER to the LAD with diffuse atherosclerosis distally. She is on appropriate medical therapy. Echocardiogram and Lexiscan are pending for today. Her echo in February of 2019 was normal. We rich l see what her Lexiscan shows before making final decisions, but I have a feeling she is going to be more of a medical therapy patient. She is already on a beta-kath. I suggest that we add Imdur 30 mg once a day to her regimen. We will await the results of her Lexiscan before we discharge her. DENG/EVAN Voice ID: [id number] Report ID: [id number]
[2019-07-31] MEDS ORDERED: ONDANSETRON 4 MG (ODT) TAB PO ONE (13:04)
--- NOTE | 2019-07-31 13:36 | CON ---
Date of Consultation: 07/30/2019 Reason For Consultation: Chest pain. History Of Present Illness: Ms. Valdez is a 63-year-old [place] woman. She is known to me fro m previous office visits and hospitalization. She has a history of end-stage renal disease, on hemod ialysis; hypertension; COPD; gastroesophageal reflux disease; dyslipidemia. She has a history of cor onary artery disease status post CABG, has a pacemaker, came in with left-sided chest pain that is ti ght. No radiation, lasted about 3 to 4 hours. No nausea, vomiting, diaphoresis, PND, orthopnea, ped al edema, palpitations, or syncope. Allergies: NONE. Review of Systems: Negative. Social History: Negative. Family History: Positive for heart disease and diabetes. Medications: At home include inhalers, aspirin, Plavix, hydralazine, Cardura, metoprolol, and Proton ix. Physical Examination: General: She continued to have some chest discomfort. Vital Signs: Stable. She was afebrile. HEENT: Negative. Neck: Supple. No bruit, lymphadenopathy, JVD, or thyromegaly. Chest: Clear to auscultation and percussion. Cardiac: Revealed a regular rhythm and rate with an S4 gallops. No murmurs or rubs. Abdomen: Benign. Extremities: Revealed no clubbing, cyanosis, or edema. Skin: Dry and intact. Neurologic: She was nonfocal. Diagnostic Data: Her creatinine was 8.63, hemoglobin of 9, troponin is 0.36. BNP was 63571. EKG sh owed paced rhythm. Chest x-ray was negative. Impression And Plan: 1.Chest pain, possibly chronic stable angina. Ms. Valdez has a history of coronary artery bypass gra ft in the past. In October 2018, a heart catheterization revealed patent left internal mammary artery t o the left anterior descending, patent vein graft to the OM, patent vein graft to the right coronary artery. She had diffuse distal disease after the anastomotic site. No focal stenosis was found. Marge stanley has been treated medically. Her troponin of 0.36 and 0.41 or chronic. In October 2018 and February 03, she had similar troponins. This is probably secondary to her chronic coronary artery disease as well as renal failure. I do not think this is an acute coronary syndrome. I will continue her pres ent regimen and get a Lexiscan on her. I would suggest adding an Imdur 30 mg 1 p.o. daily. We will see how she does overnight. 2.End-stage renal disease, on hemodialysis. 3.Chronic anemia. 4.Hypertension, poorly controlled. 5.Chronic obstructive pulmonary disease. 6.Gastroesophageal reflux disease. 7.Dyslipidemia. 8.History of pacemaker. 9.Elevated troponin and BNP, most likely secondary to renal failure. We will continue to follow her . DENG/EVAN Voice ID: [id number] Report ID: [id number]
--- NOTE | 2019-07-31 15:12 | PN ---
Date of Progress Note: 07/31/2019 Subjective: Patient was admitted with chest pain. Patient had end-stage renal disease. Patient underwent stress test today. Physical Examination: Vital Signs: Blood pressure 171/74, pulse of 60 afebrile. Chest: Clear to auscultation. Heart: S1, S2 regular. Abdomen: Soft, nontender. Extremities: No edema. Laboratory Data: WBC 2.8, H and H 9.2/27.8. Sodium 136, potassium 4.3, bicarb 27, BUN 45, creatinine 5, calcium 7.8. Current Medications: The patient on include: 1. Aspirin. 2. Pantoprazole. 3. Plavix. 4. Carvedilol. 5. Cardura. Assessment And Plan: 1. End-stage renal disease. Normal volume. I am going to continue the patient on her dialysis schedule. We will arrange for another dialysis tomorrow. 2. Anemia of chronic kidney disease. Continue resuming MELA. 3. Hypertension. Resume losartan. 4. Chest pain. We will follow up the stress test. 5. Diabetes as by primary. LISETH/EVAN Voice ID: [id number] Report ID: [id number] SHRAVAN
--- NOTE | 2019-08-01 06:51 | EKG ---
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
[2019-08-01] MEDS ORDERED: LOSARTAN POTASSIUM 50 MG TABLET PO SCH (09:00)
--- NOTE | 2019-08-01 09:32 | TREADPHA ---
70% H.R.: 85% H.R.: 90% H.R.: 100% H.R.: DX: CHEST PAIN/ CORNARY ARTERY DISEASE Date of Study: 07/31/2019 Ht: 5' 3 " Wt: 160 lb 0 oz Consulting Physician: CRISSY MEDICATIONS: ASPIRIN, COREG, PLAVIX, CARDURA, HEPARIN, APRESOLINE, ATARAX, NOVOLIN-R, REGLAN, ZOFRAN HISTORY: 63 YEAR OLD FEMALE WITH COMPLAINTS OF CHEST PAIN. MEDICAL HISTORY OF CHRONIC ISCHEMIC HEART DISEASE, DIABETES MELLITUS, END STAGE RENAL DISEASE, GERD, HIGH CHOLESTEROL, HYPERTENSION, HYPERPARATHYROIDISM, ANEMIA, MYOCARDIAL INFARCTION PHYSICIAL EXAMINATION: RESTING B.P.: 177/68 RESTING H.R.: 63 RESTING EKG: NORMAL SINUS RHYTHM, NON-SPECIFIC T WAVE PROTOCOL: PHARMACOLOGIC EXERCISE TIME: 3:30 B.P. AT PEAK STRESS: 147/64 IMPRESSION: LEXISCAN INJECTED, CARDIOLITE INJECTED PER PROTOCOL. SEE NUCLEAR MEDICINE REPORT. NO SUPRAVENTRICULAR TACHYCARDIA. NO VENTRICULAR TACHYCARDIA. NO PREMATURE VENTRICULAR COMPLEXES, DENIED CHEST PAIN. PATIENT NAUSEA AND VOMITED AFTER INJECTION OF LEXISCAN.
== END 2019-07-31 13:16 | disposition home or self-care (01) ==
LOC: ER 07:27 → ERHOLD 11:28 → 2ND 13:00
PROVIDERS: ADMIT Internal Medicine; ATTEND Internal Medicine
PROC: 5A1D70Z Performance of Urinary Filtration, Intermittent, Less than 6 Hours Per Day (ICD-10-PCS; principal; 2019-07-30)
DX: R07.9 Chest pain, unspecified (principal); N18.6 End stage renal disease; Z99.2 Dependence on renal dialysis; D63.8 Anemia in other chronic diseases classified elsewhere; J44.9 Chronic obstructive pulmonary disease, unspecified; K21.9 Gastro-esophageal reflux disease without esophagitis; E78.5 Hyperlipidemia, unspecified; Z95.0 Presence of cardiac pacemaker; I25.10 Atherosclerotic heart disease of native coronary artery without angina pectoris; I50.9 Heart failure, unspecified; I13.2 Hypertensive heart and chronic kidney disease with heart failure and with stage 5 chronic kidney disease, or end stage renal disease
CPT/HCPCS: 36415; 71045; 78452; 80048; 80053; 80076; 82947; 83735; 83880; 84484; 85025; 85610; 93005; 93017; 94640; 96374; 99285; A9500; G0257; G0378; J0360; J1644; J2270; J2405; J2785

== ENCOUNTER 2019-10-22 09:32 | Inpatient (IN) | payer OTHER ==
[2019-10-22] MEDS ORDERED: MORPHINE 2 MG/ML SYR ONE (09:59)
[2019-10-22 10:18] LABS: Absolute Lymphocytes (CBC) 1.1 K/uL (0.7-4.9); Basophils % 1.1 % (0-1.3); Hematocrit 33.4 % (36.0-45.0); Lymphocytes % 27.1 % (15.3-44.8); MPV 8.5 fL (7.6-11.3); RBC Red Blood Cell Count 3.39 M/uL (3.86-4.86)
--- NOTE | 2019-10-22 10:54 | RAD REPORT ---
EXAM DESCRIPTION: CT - Head Brain Wo Cont - 10/22/2019 10:24 am CLINICAL HISTORY: Headache COMPARISON: 2018 TECHNIQUE: Computed axial tomography of the head was obtained. IV contrast was not requested. All CT scans are performed using dose optimization technique as appropriate and may include automated exposure control or mA/KV adjustment according to patient size. FINDINGS: An intracranial bleed is not seen . The ventricles are normal in caliber. No extra-axial fluid collection is noted. Fluid within the sinuses/ mastoids is not seen. Mild to moderate mucoperiosteal thickening left maxil day sinus IMPRESSION: No acute intracranial abnormality is seen. If patient's symptoms persist MRI of the bra in would be recommended.
[2019-10-22 10:57] LABS: Albumin 3.7 g/dL (3.4-5.0); Bilirubin Direct 0.2 mg/dL (0-0.2); Bilirubin Total 0.6 mg/dL (0.2-1.0); Protein, Total 8.6 g/dL (6.4-8.2); Troponin (Emerg Dept Use Only) 0.44 ng/mL (0.0-0.045)
--- NOTE | 2019-10-22 11:11 | ER ---
Nurse's Notes [facility] Name: Qiana Valdez Age: 64 yrs Sex: Female : 1955 Arrival Date: 10/22/2019 Time: 09:33 Bed 19 Private MD: Diagnosis: Chest pain, unspecified;End stage renal disease Presentation: 10/21 09:35 Chief complaint: EMS states: CP DURING DIALYSIS. Coronavirus screen: Patient denies a bp cough. Patient denies shortness of breath or difficulty breathing. Patient denies measured and/or subjective temperature greater than 100.4F prior to today's visit. Patient denies travel on a cruise ship or to a country the [facility] currently lists as an affected area. Patient denies contact with known and/or suspected case of COVID-19. Ebola Screen: No symptoms or risks identified at this time. Initial Sepsis Screen: Does the patient meet any 2 criteria? No. Patient's initial sepsis screen is negative. Does the patient have a suspected source of infection? No. Patient's initial sepsis screen is negative. Risk Assessment: Do you want to hurt yourself or someone else? Patient reports no desire to harm self or others. Onset of symptoms was October 22, 2019 at 09:15. Care prior to arrival: Glucose check: 140. 09:35 Method Of Arrival: EMS: [facility] bp 09:35 Acuity: SIXTO 2 bp Triage Assessment: 09:35 General: Appears distressed, comfortable, obese, Behavior is cooperative, appropriate bp for age, anxious. Pain: Complains of pain in chest. EENT: No deficits noted. Neuro: No deficits noted. Cardiovascular: Rhythm is sinus rhythm. Respiratory: No deficits noted. GI: No signs and/or symptoms were reported involving the gastrointestinal system. : No signs and/or symptoms were reported regarding the genitourinary system. Derm: No deficits noted. Musculoskeletal: No deficits noted. Historical: - Allergies: :44 No Known Allergies; bp - Home Meds: :44 aspirin 81 mg Oral chew 1 tab once daily [Active]; atorvastatin 40 mg oral tab 1 tab bp once daily [Active]; metoclopramide HCl 5 mg Oral tab 1 tab 4 times per day [Active]; Nifedipine ER Oral 60 mg twice a day [Active]; carvedilol 12.5 mg oral tab 1 tab 2 times per day [Active]; pantoprazole 40 mg Oral TbEC 1 tab once daily [Active]; Plavix 75 mg Oral tab 1 tab once daily [Active]; hydralazine 50 mg oral tab 1 tab 2 times per day [Active]; Lactulose 30 gm daily until bowels move and then stop taking prn Oral [Active]; Senexon 8.6 mg Oral tab twice a day [Active]; losartan 100 mg oral tab 1 tab twice a day [Active]; - PMHx: 09:44 Chronic ischemic heart disease; Diabetes - IDDM; ESRD; GERD; High Cholesterol; bp hyperparathyroidism; Hypertension; IRON DEFICIENCY ANEMIA; Myocardial infarction; - PSHx: 09:44 CABG; bp - Immunization history:: Adult Immunizations up to date. - Social history:: Smoking status: Patient denies any tobacco usage or history of. - Family history:: not pertinent. - Hospitalizations: : No recent hospitalization is reported. Screenin:38 Abuse screen: Denies threats or abuse. Denies injuries from another. Nutritional bp screening: No deficits noted. Tuberculosis screening: No symptoms or risk factors identified. Fall Risk None identified. Assessment: 09:38 General: SEE TRIAGE NOTE. bp 10:15 Reassessment: PT TO CT. ALL OTHER ORDERS IN PROCESS. bp 10:28 Reassessment: PT RETURNED FROM CT. bp 11:06 Reassessment: RE-EVAL BY . VS STABLE ON MONITOR. bp 12:56 Reassessment: ADMIT IN PROCESS, BED ASSIGNED. bp 13:16 Reassessment: REPORT TO ROBERT DORSEY FOR RM 213. bp Vital Signs: 09:35 BP 178 / 90; Pulse 70; Resp 17; Temp 97.8; Pulse Ox 98% on R/A; bp 10:15 BP 153 / 62; Pulse 69; Resp 19; Pulse Ox 99% ; bp 11:06 BP 155 / 62; Pulse 62; Resp 17; Pulse Ox 97% ; bp 12:56 BP 160 / 71; Pulse 62; Resp 11; Pulse Ox 93% ; bp ED Course: 09:33 Patient arrived in ED. bp 09:35 Arm band placed on. bp 09:36 Adam Lau MD is Attending Physician. rn 09:37 Triage completed. bp 09:38 Patient has correct armband on for positive identification. Bed in low position. Call bp light in reach. Side rails up X2. campus monitor on. Pulse ox on. NIBP on. 09:44 Koffi Dubose, RN is Primary Nurse. bp 10:00 Inserted saline lock: 22 gauge in left hand, using aseptic technique. Blood collected. bp 10:24 CT Head Brain wo Cont In Process Unspecified. EDMS 10:44 XRAY Chest (1 view) In Process Unspecified. EDMS 11:09 Immanuel Dumont DO is Hospitalizing Provider. rn 12:57 No provider procedures requiring assistance completed. Patient admitted, IV remains in bp place. Patient maintains SpO2 saturation greater than 95% on room air. Administered Medications: 10:00 Drug: morphine 2 mg Route: IVP; Site: left hand; bp 13:17 Follow up: Response: Pain is decreased bp 11:15 Drug: Nitroglycerin 0.4 mg Route: Sublingual; bp 13:17 Follow up: Response: Pain is decreased bp Outcome: 11:10 Decision to Hospitalize by Provider. rn 13:16 Admitted to Med/surg accompanied by tech, via wheelchair, room 213, with chart, Report bp called to ROBERT DORSEY 13:16 Condition: stable 13:16 Instructed on the need for admit. 13:29 Patient left the ED. bp Signatures: Dispatcher [employer] EDAdam Diaz MD MD rn Peltier, Brian, SUNITA RN bp
--- NOTE | 2019-10-22 11:11 | EDPHYS ---
Physician Documentation [facility] Name: Qiana Valdez Age: 64 yrs Sex: Female : 1955 Arrival Date: 10/22/2019 Time: 09:33 Bed 19 Private MD: ED Physician Adam Lau HPI: 10/21 10:32 This 64 yrs old Female presents to ER via EMS with complaints of Chest Pain. rn 10:32 The patient or guardian reports chest pain that is located primarily in the substernal rn area. Onset: just prior to arrival. The pain does not radiate. The chest pain is described as aching. Modifying factors: The symptoms are alleviated by nothing. the symptoms are aggravated by nothing. Severity of pain: At its worst the pain was moderate in the emergency department the pain has improved. The patient has experienced similar episodes in the past. Reports substernal chest pain, began during dialysis, noticed it starting yesterday, intermittent, got worse today, no syncope, does not feel sick, no fever, no cough. . Historical: - Allergies: : No Known Allergies; bp - Home Meds: : aspirin 81 mg Oral chew 1 tab once daily [Active]; atorvastatin 40 mg oral tab 1 tab bp once daily [Active]; metoclopramide HCl 5 mg Oral tab 1 tab 4 times per day [Active]; Nifedipine ER Oral 60 mg twice a day [Active]; carvedilol 12.5 mg oral tab 1 tab 2 times per day [Active]; pantoprazole 40 mg Oral TbEC 1 tab once daily [Active]; Plavix 75 mg Oral tab 1 tab once daily [Active]; hydralazine 50 mg oral tab 1 tab 2 times per day [Active]; Lactulose 30 gm daily until bowels move and then stop taking prn Oral [Active]; Senexon 8.6 mg Oral tab twice a day [Active]; losartan 100 mg oral tab 1 tab twice a day [Active]; - PMHx: :44 Chronic ischemic heart disease; Diabetes - IDDM; ESRD; GERD; High Cholesterol; bp hyperparathyroidism; Hypertension; IRON DEFICIENCY ANEMIA; Myocardial infarction; - PSHx: 44 CABG; bp - Immunization history:: Adult Immunizations up to date. - Social history:: Smoking status: Patient denies any tobacco usage or history of. - Family history:: not pertinent. - Hospitalizations: : No recent hospitalization is reported. ROS: 10:56 Constitutional: Negative for fever, chills, and weight loss, Eyes: Negative for injury, rn pain, redness, and discharge, Neck: Negative for injury, pain, and swelling, Cardiovascular: Negative for palpitations, and edema, Respiratory: Negative for shortness of breath, cough, wheezing, and pleuritic chest pain, Abdomen/GI: Negative for abdominal pain, nausea, vomiting, diarrhea, and constipation, MS/Extremity: Negative for injury and deformity, Skin: Negative for injury, rash, and discoloration, Neuro: Negative for headache, weakness, numbness, tingling, and seizure. Exam: 10:56 Constitutional: This is a well developed, well nourished patient who is awake, alert, rn grabbing her chest, tearful Head/Face: Normocephalic, atraumatic. Cardiovascular: Regular rate and rhythm. No pulse deficits. Respiratory: No increased work of breathing, no retractions or nasal flaring. Abdomen/GI: soft, nontender Skin: Warm, dry MS/ Extremity: Pulses equal, no cyanosis. Neurovascular intact. Full, normal range of motion. Equal circumference. Neuro: Awake and alert, GCS 15 11:07 ECG was reviewed by the Attending Physician. rn Vital Signs: 09:35 BP 178 / 90; Pulse 70; Resp 17; Temp 97.8; Pulse Ox 98% on R/A; bp 10:15 BP 153 / 62; Pulse 69; Resp 19; Pulse Ox 99% ; bp 11:06 BP 155 / 62; Pulse 62; Resp 17; Pulse Ox 97% ; bp 12:56 BP 160 / 71; Pulse 62; Resp 11; Pulse Ox 93% ; bp MDM: 09:36 Patient medically screened. rn 11:07 Differential diagnosis: acute myocardial infarction, acute pericarditis, coronary rn artery disease congestive heart failure pleurisy, pneumothorax, stable angina, unstable angina. The patient was not given aspirin in the Emergency Department. Patient reports taking aspirin within the past 24 hours. Data reviewed: vital signs, nurses notes. Counseling: I had a detailed discussion with the patient and/or guardian regarding: the historical points, exam findings, and any diagnostic results supporting the discharge/admit diagnosis, lab results, radiology results, the need for further work-up and treatment in the hospital. Response to treatment: the patient's symptoms have mildly improved after treatment, and as a result, I will admit patient. Admission orders: after a detailed discussion of the patient's condition and case, the admit orders are written by me. ED course: Pt improved with nitro but still having pain, states is new/worsening since yesterday, elevated troponin, likely due to ESRD/pulmonary edema, but pt high risk with previous SD and CABG. Admitted to Dr. Dumont. . 10/21 09:42 Order name: Basic Metabolic Panel 10/21 09:42 Order name: CBC with Diff rn 10/21 09:42 Order name: LFT's; Complete Time: 11: 10/21 09:42 Order name: NT PRO-BNP; Complete Time: 11: 10/21 09:42 Order name: Troponin (emerg Dept Use Only); Complete Time: 11: 10/21 09:42 Order name: Basic Metabolic Panel; Complete Time: 11: [facility] 10/21 09:42 Order name: XRAY Chest (1 view) 10/21 09:42 Order name: EKG; Complete Time: 09:44 10/21 09:42 Order name: CT Head Brain wo Cont; Complete Time: 11: 10/21 09:43 Order name: CBC with Automated Diff; Complete Time: 10:32 [facility] 10/21 12:15 Order name: Troponin I [facility] 10/21 12:15 Order name: Troponin I [facility] 10/21 09:42 Order name: Cardiac monitoring; Complete Time: 09:45 10/21 09:42 Order name: EKG - Nurse/Tech; Complete Time: 09:45 10/21 09:42 Order name: IV Saline Lock; Complete Time: 10: 10/21 09:42 Order name: Labs collected and sent; Complete Time: 10: 10/21 09:42 Order name: O2 Per Protocol; Complete Time: 09:45 10/21 09:42 Order name: O2 Sat Monitoring; Complete Time: 09:45 10/21 12:08 Order name: CONS Physician Consult [facility] 10/21 12:15 Order name: Consistent Carb (ADA) 1800 Jordy EDMS EC:07 Rate is 72 beats/min. Rhythm is regular. QRS [place] is Normal. CT interval is normal. QRS rn interval is prolonged. QT interval is prolonged at 494 msec. No Q waves. T waves are Inverted in leads I, II, aVF, V4, V5, V6. ST Segment is depressed in leads I, II, V4, V5, V6. Clinical impression: NSR w/ Non-specific ST/T Changes. Interpreted by me. Reviewed by me. Administered Medications: 10:00 Drug: morphine 2 mg Route: IVP; Site: left hand; bp 13:17 Follow up: Response: Pain is decreased bp 11:15 Drug: Nitroglycerin 0.4 mg Route: Sublingual; bp 13:17 Follow up: Response: Pain is decreased bp Disposition: 10/22/19 11:10 Hospitalization ordered by Immanuel Dumont for Observation. Preliminary diagnosis are Chest pain, unspecified, End stage renal disease. - Bed requested for Telemetry/MedSurg (observation). - Status is Observation. bp - Condition is Stable. - Problem is new. - Symptoms have improved. Signatures: Dispatcher [employer] EDMS Sarah Deleon Diana, Adam Duran RN, MD MD rn Sedrick, Koffi, RN RN bp Corrections: (The following items were deleted from the chart) 12:31 11:10 Hospitalization Ordered by Immanuel Dumont DO for Observation. Preliminary bd diagnosis is Chest pain, unspecified; End stage renal disease. Bed requested for Telemetry/MedSurg (observation). Status is Observation. Condition is Stable. Problem is new. Symptoms have improved. rn 12:32 12:31 10/22/2019 11:10 Hospitalization Ordered by Immanuel Dumont DO for Observation. dw Preliminary diagnosis is Chest pain, unspecified; End stage renal disease. Bed requested for Telemetry/MedSurg (observation). Status is Observation. Condition is Stable. Problem is new. Symptoms have improved. bd 13:29 12:32 10/22/2019 11:10 Hospitalization Ordered by Immanuel Dumont DO for Observation. bp Preliminary diagnosis is Chest pain, unspecified; End stage renal disease. Bed requested for Telemetry/MedSurg (observation). Status is Observation. Condition is Stable. Problem is new. Symptoms have improved. neyda
--- NOTE | 2019-10-22 11:50 | RAD REPORT ---
EXAM DESCRIPTION: Samuel Single View10/22/2019 10:44 am CLINICAL HISTORY: Chest pain COMPARISON: July 2019 FINDINGS: The lungs appear clear of acute infiltrate. The heart is mildly to moderately enlarged. E nlarged. Pacemaker leads are in place. IMPRESSION: No acute abnormalities displayed
[2019-10-22] MEDS ORDERED: NITROGLYCERIN 0.4 MG/TAB SL ONE (11:51)
[2019-10-22] MEDS ORDERED: ACETAMINOPHEN 500 MG TAB PO PRN (12:08)
[2019-10-22] MEDS ORDERED: ONDANSETRON 4 MG/2 ML VIAL IV PRN (12:08)
--- NOTE | 2019-10-22 12:31 | P.HP ---
Certification for Inpatient Patient admitted to: Observation With expected LOS: <2 Midnights Patient will require the following post-hospital care: None Practitioner: I am a practitioner with admitting privileges, knowledge of patient current condition, hospital course, and medical plan of care. Services: Services provided to patient in accordance with Admission requirements found in Title 42 Section 412.3 of the Code of Federal Regulations <José Miguel Horn - Last Filed: 10/22/19 13:09> Patient History Date of Service: 10/22/19 Reason for admission: NSTEMI History of Present Illness: 64-year-old female with a past medical history of [place], CABG x3, end-stage renal disease on dialysis Tuesday, av fistula from 06/2017, hypertension, diabetes, hyperlipidemia and pacemaker presents to the emergency room complaining of chest pain. Patient states that the chest pain started today while in dialysis. Was only able to complete 2 hr of 4 that she normally has dialysis. Dialysis done through AV fistula that was created in June of 2017. States the chest pain is worsening. Describes the chest pain as midsternal pressure. States that nothing alleviates the pain prior to arrival. In the emergency room patient is found to have an elevated troponin of 0.44, EKG with ST changes similar to EKG from last year which showed ST [place] [address], chest x-ray with no acute abnormalities, elevated creatinine of 5.5. On physical exam patient is calm and in no distress. She is a poor historian. States that her daughter knows what medication she takes, with doctor she sees and things like that. Continues with chest pain identical to the chest pain she was having during dialysis. Patient had a cardiac stress test July of 2019 which showed an ejection fraction of 43%. She had a cardiac catheterization 2018 which showed severe coronary artery disease and was recommended to have medical management. Her echocardiogram from February of 2019 showed normal ejection fraction. Patient will be placed in observation and further evaluated. Home medications list reviewed: Yes - Past Medical/Surgical History Diabetic: Yes -: HTN -: NIDDM -: ESRD - MWF -: Nonfuctioning LLE fistula -: HLD -: GERD -: chronic ischemic heart disease -: hyperparathyroidism -: anemia -: iron deficiency -: Triple bypass 2016 -: Pacemaker -: Tubal ligation -: Fistula aneursym reconstruction 4 times -: Bilateral cataract surgery Psychosocial/ Personal History: Lives at home - Family History Family History: Reviewed- Non-Contributory - Social History Smoking Status: Never smoker Alcohol use: No CD- Drugs: No Caffeine use: No Place of Residence: Home <José Miguel Horn - Last Filed: 10/22/19 13:09> Date of Service: 10/22/19 <Edward Bolivar - Last Filed: 10/22/19 16:31> Allergies No Known Allergies Allergy (Verified 02/18/19 04:59) Home Medications: Aspirin [Aspirin EC 81 MG] 81 mg PO DAILY 10/22/19 Carvedilol [Coreg] 12.5 mg PO BID 10/22/19 Isosorbide Mononitrate [Isosorbide Mononitrate ER] 30 mg PO DAILY 10/22/19 Losartan Potassium [Cozaar] 100 mg PO DAILY 10/22/19 NIFEdipine [Nifedipine ER] 60 mg PO BID 10/22/19 Sucroferric Oxyhydroxide [Velphoro] 500 mg PO TIDWM 10/22/19 Review of Systems General: As per HPI Eyes: Unremarkable ENT: Unremarkable Respiratory: Unremarkable Cardiovascular: Chest Pain, As per HPI Gastrointestinal: Unremarkable Genitourinary: Unremarkable Musculoskeletal: Unremarkable Integumentary: Unremarkable Neurological: Unremarkable <José Miguel Horn - Last Filed: 10/22/19 13:09> Physical Examination - Vital Signs Temperature: 97.8 F Blood Pressure: 155/62 Pulse: 62 Respirations: 17 Pulse Ox (%): 98 (RA) - Physical Exam General: Alert, In no apparent distress, Oriented x3 HEENT: Atraumatic, Normocephalic, PERRLA Neck: Supple, Other (Trachea midline) Respiratory: Clear to auscultation bilaterally, Normal air movement Cardiovascular: No edema, Normal pulses, Regular rate/rhythm Capillary refill: <2 Seconds Gastrointestinal: Normal bowel sounds, Soft and benign, Non-distended Musculoskeletal: No swelling, No contractures, No erythema Integumentary: No rashes, No breakdown, No significant lesion, No tenderness/swelling Neurological: Normal speech, Normal strength at 5/5 x4 extr, Normal tone - Studies Laboratory Data (last 24 hrs) 10/22/19 10:00: WBC 4.1 L, Hgb 11.4 L, Hct 33.4 L, Plt Count 132 L 10/22/19 10:00: Sodium 137, Potassium 4.0, BUN 40 H, Creatinine 5.50 H*, Glucose 126 H, Total Bilirubin 0.6, AST 38 H, ALT 51, Alkaline Phosphatase 141 H <KoryJosé Miguel - Last Filed: 10/22/19 13:09> - Studies Laboratory Data (last 24 hrs) 10/22/19 10:00: WBC 4.1 L, Hgb 11.4 L, Hct 33.4 L, Plt Count 132 L 10/22/19 10:00: Sodium 137, Potassium 4.0, BUN 40 H, Creatinine 5.50 H*, Glucose 126 H, Total Bilirubin 0.6, AST 38 H, ALT 51, Alkaline Phosphatase 141 H <Edward Bolivar - Last Filed: 10/22/19 16:31> Assessment and Plan - Plan Impression: NSTEMI: Severe coronary artery disease with CABG x3 in 2015 and pacemaker in-situ: End-stage renal disease on dialysis Tuesday: Type 2 diabetes mellitus: Hyperlipidemia: Essential hypertension: Plan: NSTEMI: On admission patient had an elevated troponin of 0.44 and was complaining of sudden onset chest pain during dialysis today. Patient was only able to complete 2 hr of the normal 4 hr of dialysis. Patient had an echocardiogram in February of 2019 which showed a normal EF with wall motion abnormality. Patient had a cardiac stress test in July of 2019 which showed an EF of 43%. EKG on admission shows ST wave changes which are similar to her prior EKG which showed ST wave deviation. Patient had a cardiac catheterization in 10/2018 which showed severe coronary artery disease, no intervention was done at the time and medical management was recommended. Patient also has a pacemaker but cannot remember when it was placed. Chest x-ray on admission showed no acute abnormalities. Will place patient on telemetry. Will consult Cardiology. Will hold off on ordering echocardiogram due to patient's recent cardiac stress test and cardiac catheterization 1 year ago. Will await C ardiology recommendations. Severe coronary artery disease with CABG x3 in 2015 and pacemaker in-situ: These are findings on the cardiac catheterization from October of 2018. Will resume home medications once verified. Patient is a poor historian and does not know which medication she uses. States that her daughter gives her her medications and knows her PCP. End-stage renal disease on dialysis Tuesday: Patient was in dialysis when she had sudden onset of chest pain. Patient was only able to complete 2 hr of her normal 4 hr of dialysis. Will consult Nephrology Dr. Jackson. Type 2 diabetes mellitus: Will order Accu-Cheks a.c. HS. Will start sliding scale insulin. Monitor blood glucose. Will check hemoglobin A1c. Hyperlipidemia: Will resume home medications. Essential hypertension: Will order hydralazine 10 mg q.4 hr for systolic blood pressure greater than 170 and diastolic blood pressure greater than 90 for now. Will resume home medications once verified. Monitor blood pressure. Discharge Plan: Home Plan to discharge in: 48 Hours - Advance Directives Does patient have a Living Will: No Does patient have a Durable POA for Healthcare: No - Code Status/Comfort Care Code Status Assessed: Yes Time Spent Managing Pts Care (In Minutes): 55 <José Miguel Horn - Last Filed: 10/22/19 13:09> Physician Review Additional Text: Patient was seen and examined findings of discussed Agree With the with the assessment and plan <Edward Bolivar - Last Filed: 10/22/19 16:31>
[2019-10-22] MEDS ORDERED: NA CHLORIDE 0.9% 1,000 ML IV SCH (13:00)
[2019-10-22] MEDS: HYDRALAZINE HCL 20 MG/ML VIAL IV PRN ×2 (14:04→22:02)
[2019-10-22 14:29] VITALS: BMI 27.6
--- OUTSIDE RECORDS SUMMARY | 2019-10-22 14:40 | XMS REPORT | Clinical Summary ---
:1955 Author Organization [facility] Address [address] [place] [address] Care Team Providers Name Role Phone Bert Bustamante MD Primary Care Provider Allergies Active Allergy Reactions Severity Noted Date Comments Heparin High 10/25/2018 "won't stop ble eding" Medications Medication Sig Dispensed Refills Start Date End Date Status ergocalciferol Take 50,000 0 Act cristela (VITAMIN D2) 50,000 Units by mouth unit capsule once a week. multivitamin Take 1 tablet 0 Act cristela (DAILY-LARON ORAL) by mouth daily. doxazosin (CARDURA) 4 Take 4 mg by 0 Active MG tablet mouth 2 (two) times a day. atorvastatin (LIPITOR) Take 40 mg by 0 Active 40 MG tablet mouth daily. pantoprazole Take 40 mg by 0 Act cristela (PROTONIX) 40 MG EC mouth daily. tablet isosorbide mononitrate Take 30 mg by 0 Active (IMDUR) 30 MG 24 hr mouth daily. tablet aspirin (ECOTRIN) 81 0 10/11/2018 Active MG enteric coated tablet furosemide (LASIX) 40 Take by mouth. 0 10/11/2018 Active mg tablet hydrALAZINE Take 1 tablet 0 10/10/2018 Act cristela (APRESOLINE) 100 MG by mouth. tablet lactulose (CEPHULAC) Take by mouth. 0 10/10/2018 Active 10 gram packet lanthanum 1,000 mg Take by mouth. 0 10/10/2018 Active powder in packet metOLazone (ZAROXOLYN) TK 1 T PO D 0 10/13/2018 Active 5 MG tablet metoprolol tartrate TK 1 T PO BID 0 10/13/2018 Active (LOPRESSOR) 25 mg tablet NIFEdipine XL Take 1 tablet 0 10/10/2018 A ctive (PROCARDIA XL) 60 MG by mouth. 24 hr tablet HYDROcodone-acetaminop Take 1 tablet 30 tablet 0 10/26/2018 hen (NORCO) 5-325 mg by mouth every per tablet 6 (six) hours as needed for moderate pain for up to 30 doses. Max Daily Amount: 4 tablets Active Problems Problem Noted Date Hematoma 07/20/2018 Acute gastroenteritis 06/21/2018 Type 2 diabetes mellitus with diabetic chronic kidney disease 06/28/2017 Pacemaker Wears glasses Encounters Date Type Specialty Care Team Description 07/16/2019 Documentation Transplant Dee Dee Dillon, SUNITA 10/26/2018 Surgery General Surgery Denisha, RIGHT UPPER Klaus Cisneros MD EXTREMITY AV FISTULA CREATIO N 10/26/2018 Anesthesia Event General Surgery Reji Hendrickson MD Cheema, Ivelisse, FNP 10/26/2018 Hospital Encounter General Surgery Klaus Denny MD 10/25/2018 Hospital Encounter Radiology Eleazar Denny MD 10/25/2018 Pre-Admit Testing Pre-Admission Eleazar Denny Appointment Testing Klaus Cisneros MD (Primary Dx) after 10/21/2018 Immunizations Name Administration Dates Next Due FLUCELVAX QUAD PF 07/05/2018 () Family History Medical History Relation Name Comments Diabetes Father Diabetes Mother Relation Name Status Comments Brother Alive Father Mother Sister Alive Social History Tobacco Use Types Packs/Day Years [...] six or more drinks on one occasion? No t asked Sex Assigned at Date Recorded Not on file Job Start Date Occupation Industry Not on file Not on file Not on file Travel History Travel Start Travel End No recent travel history available. Last Filed Vital Signs Vital Sign Reading Time Taken Comments Blood Pressure 149/73 10/26/2018 2:30 PM CDT Pulse 60 10/26/2018 2:30 PM CDT Temperature 36.8 C (98.2 F) 10/26/2018 2:00 PM CDT Respiratory Rate 17 10/26/2018 2:30 PM CDT Oxygen Saturation 96% 10/26/2018 2:30 PM CDT Inhaled Oxygen Concentration - - Weight 67.1 kg (148 lb) 10/26/2018 9:36 AM CDT Height 160 cm (5' 3") 10/26/2018 9:36 AM CDT Body Mass Index 26.22 10/26/2018 9:36 AM CDT Plan of Treatment Health Maintenance Due Date Last Done Comments DIABETIC RETINAL EYE EXAM 1955 DIABETIC FOOT EXAM 09/05/1967 COLONOSCOPY SCREENING 09/05/2007 SHINGLES VACCINES (#1) 09/05/2007 INFLUENZA VACCINE 11/03/2019 BREAST CANCER SCREENING 11/16/2019 11/15/2017, 04/10/2015 CERVICAL CANCER SCREENING 08/11/2020 08/11/2017 Implants Implanted Type Area Computer Systems Auditor Device Shelf Model / Identifier Expiration Serial / Date Lot Catheter Hmodial Dura-Flow Prcrv Bsc Valved Pelbl Shth 28cm - [id number] Central N/A: N/A ANGIODYNAMICS 06/23/2019 [id number] / Implanted: Qty: 1 on 06/22/2018 by Klaus Denny MD at [facility] [employer] / Catheters Pacemaker Pacemaker Kit Selnt Fibrin Humn [facility] Surgy 5ml Evicel - [id number] Surgic al N/A: N/A ETHICON US-EH 06/23/2019 [id number] / Implanted: Qty: 1 on 06/22/2018 by Klaus Denny MD at [facility] Implants; / Expanders; Extenders; Surgical Wires Particle Soft-Tissue Grft Micronized For Impntn Recon 1000mg - [id number] Surgical Arm, [employer] 02/02/2020 [id number] / Implanted: Qty: 1 on 06/24/2018 by Agusto Hagen MD at [facility] Implants; Lower / Expanders; Extenders; Surgical Wires Kit Selnt Fibrin Humn [facility] Surgy 5ml Evicel - [id number] Surgic al N/A: N/A ETHICON US-EH 06/27/2019 [id number] / Implanted: Qty: 1 on 06/26/2018 by Klaus Denny MD at [facility] Implants; / Expanders; Extenders; Surgical Wires Procedures Procedure Name Priority Date/Time Associated Comments Diagnosis POC GLUCOSE Routine 10/26/2018 12:48 PM Results for this CDT procedure are i n the results section. ANESTHESIA Routine 10/26/2018 10:40 AM PERIPHERAL BLOCK CDT Procedure Note - Griffin Hendrickson MD - 10/26/2018 10:40 AM CDT Peripheral Block Performed by: Reji Hendrickson MD Authorized by: Reji Hendrickson MD Patient Location: Pre-op Start Time: 10/26/2018 10:30 AM End Time: 10/26/2018 10:40 A M Staff: Anesthesiologist: Reji Hendrickson MD Performed by: Anesthesiol ogist Preprocedure: patient identi fied, IV checked, site and side verified, risks and benefits discussed, procedure verified, surgical consent complete, patient position confirmed, monitors and equipment checked, pre-op evaluation complete a nd site marked Peripheral Nerve Block: Patient Position: Supine Prep: ChloraPrep Monitoring: Blood pressur e monitoring, continuous pulse oximetry and heart rate Block Type: Supraclavicular Laterality: Right Injection Technique: Single injection Procedures: ultrasound guide d Local Infiltration (See MAR for details): Lidocaine Needle: Needle Type: Pajunk Needle Gauge: 19 G Needle Length: 10 cm Assessment: Injection Assessment: Vis ualized needle/local anesthetic surrounding nerve, visualized pertinent vascular structures and nerves, needle tip visualized at all times during injection of medication, no symptoms of intraneural/intravenous inje ction and intermittent aspiration during local anesthetic administration Paresthesia Pain: Immedia tely resolved Heart Rate Change: No Slow Fractionated Injectio n: Yes Block outcome: No apparen t complications, patient comfortable and patient tolerated procedure well Medications Administered Ropivacaine 0.5 % PF (mL), 2 0 mL POC PANEL 4 Routine 10/26/2018 10:03 AM Results for this CDT procedure are i n the results section. ESTIMATED GFR STAT 10/26/2018 9:57 AM Results for this CDT procedure are i n the results section. BASIC METABOLIC PANEL STAT 10/26/2018 9:57 AM Results for this CDT procedure are i n the results section. XR CHEST 2 VW Routine 10/25/2018 3:12 PM Preop testing Result s for this CDT procedure are i n the results section. ECG PRE/POST OP Routine 10/25/2018 2:27 PM Preop testing Resu lts for this CDT procedure are i n the results section. TYPE AND SCREEN Routine 10/25/2018 2:18 PM Preop testing Resu lts for this CDT procedure are i n the results section. PROTHROMBIN TIME WITH STAT 10/25/2018 2:18 PM Preop testin g Results for this INR CDT procedure are i n the results section. PARTIAL THROMBOPLASTIN STAT 10/25/2018 2:18 PM Preop testi ng Results for this TIME (PTT) CDT procedure are i n the results section. HC COMPLETE BLD COUNT STAT 10/25/2018 2:18 PM Preop testin g Results for this W/AUTO DIFF CDT procedure are i n the results section. after 10/21/2018 Results POC glucose (10/26/2018 12:48 PM CDT) Pathologist Sig nature POC glucose 140 (H) 65 - 99 mg/dL [facility] Comment: [facility] Meter ID: [id number] Road Design Engineer: Lori Abreu Specimen Performing Organization Address [facility]/Zipcode Phone Number [facility] DEPARTMENT OF PATHOLOGY [address] [place] [address] X [phone] [place] [address] POC panel 4 (10/26/2018 10:03 AM CDT) POC sodium 137 135 - 148 [facility] mmol/L [facility] POC potassium 5.3 (H) 3.5 - 5.0 [facility] mmol/L [facility] POC hematocrit 36 (L) 37 - 47 % [facility] POC glucose 185 (H) 65 - 99 mg/dL [facility] POC hemoglobin 12.2 12.0 - 16.0 [facility] Comment: g/dL [facility] Meter ID: [id number] [facility] Design Engineer: Jim Dubon Specimen Blood Performing Organization Address [facility]/Zipcode Phone Number [facility] DEPARTMENT OF PATHOLOGY [address] [place] [address] X [address] X [phone] [place] [address] Estimated GFR (10/26/2018 9:57 AM CDT) Estimated GFR 8 (A) mL/min/1.73 [facility] Comment: m2 [facility] Catergory Units Interpretation HOS PITAL G1 >=90 Normal or high G2 60-89 Mildly decreased G3a 45-59 Mildly to moderately decreas ed G3b 30-44 Moderately to severely decre ased G4 15-29 Severely decreased G5 <15 Kidney failure The eGFR was calculated using the Chronic Kidney Disea se Epidemiology Collaboration (CKD-EPI) equation. Interpretation is based on recommendations of the National Kidney Foundation-Kidney Disease Outcomes Thomas lity Initiative (NKF-KDOQI) published in 2014. Specimen Plasma specimen Performing Organization Address City/[facility]/Zipcode Phone Number [facility] DEPARTMENT OF PATHOLOGY [phone] [place] [address] Basic metabolic panel (10/26/2018 9:57 AM CDT) Pathologist Sig nature Sodium 136 135 - 148 mEq/L [facility] Potassium 5.6 (H) 3.5 - 5.0 mEq/L [facility] Chloride 98 98 - 112 mEq/L [facility] CO2 25 24 - 31 mEq/L [facility] Anion gap 13@ANIO 7 - 15 mEq/L [facility] BUN 51 (H) 8 - 23 mg/dL [facility] Creatinine 5.52 (H) 0.50 - 0.90 mg/dL [facility] Glucose 194 (H) 65 - 99 mg/dL [facility] Calcium 8.7 (L) 8.8 - 10.2 mg/dL [facility] Specimen Plasma specimen Performing Organization Address City/[facility]/Zipcode Phone Number [facility] DEPARTMENT OF PATHOLOGY [phone] [place] [address] XR Chest 2 Vw (10/25/2018 3:12 PM CDT) Specimen Narrative Performed At [facility] Examination: XR CHEST 2 VW Clinical history: "Z01.818 Encounter for other prepr ocedural examination, Pre OP Testing" Comparison: 07/02/2018 Two radiographic views of the chest were evaluated. IMPRESSION: There are no apparent infiltrates, pleural effusions, or pneumothoraces. The left jugular tunneled hemodialysis catheter and the right cardiac regulating device appear unchanged. The prominent ca rdiomediastinal silhouette and the imaged bones are stable in appearance. [id number] Procedure Note Hm Interface, Radiology Results Incoming - 10/25/2018 3:20 PM CDT Examination: XR CHEST 2 VW Clinical history: "Z01.818 Encounter fo r other preprocedural examination, Pre OP Testing" Comparison: 07/02/2018 Two radiographic views of the chest were evaluated. IMPRESSION: There are no apparent infiltrates, pleur al effusions, or pneumothoraces. The left jugular tunneled hemodialysis catheter and the right cardiac regulating device appear unchanged. The prominent cardiomediastinal silhouette and the imaged bones are stable in appearance. [id number] Performing Organization Address City/State/Zipcode Phone Number [facility] [address] [place] [address] ECG Pre/Post Op (10/25/2018 2:27 PM CDT) Pathologist Sig nature Ventricular rate 65 [facility] Atrial rate 65 [facility] ND interval 172 [facility] QRSD interval 92 [facility] QT interval 462 [facility] QTC interval 480 [facility] P axis 1 54 [facility] QRS axis 1 14 [facility] T wave axis 181 [facility] EKG impression Electronic atrial pacemaker- Voltage criteria for left ventricular hypertrophy-ST & T wave abnormality, consider inferolateral ischemia-Prolonged QT-Abnormal ECG-In automated comparison with ECG of 22-JUN-2018 17:03,- Electronic atrial pacemaker has [facility] replaced Sinus rhythm-RSR' p attern in V1 is no longer present- Specimen Narrative Performed At This result has an attachment that is no t available. Performing Organization Address City/[facility]/Zipcode Phone Number [facility] [address] [place] [address] Partial thromboplastin time, activated (10/25/2018 2:18 PM CDT) PTT 37.5 (H) 23.0 - 36.0 [facility] Comment: [facility] PTT therapeutic range for unfractionated heparin is HOSPITAL 61.0-112.0 seconds which corresponds to Anti-Xa 0.3-0.7 U/ml. Specimen Blood Performing Organization Address City/[facility]/Zipcode Phone Number [facility] DEPARTMENT OF PATHOLOGY [address] [place] [address] Prothrombin time with INR (10/25/2018 2:18 PM CDT) Prothrombin time 14.1 11.5 - 14.5 [facility] INR 1.1 [facility] Comment: [facility] International Normalized Ratio (INR) is a therapeu [facility] monitoring tool for patients who are stable on oral anticoagulant therapy. An INR of 2.0-3.0 is suggested for deep vein thrombosis/pulmonary embolism. Specimen Blood Performing Organization Address [facility] Phone Number [facility] DEPARTMENT OF PATHOLOGY [address] [place] [address] CBC with platelet and differential (10/25/2018 2:18 PM CDT) WBC 2.9 (L) 4.5 - 11.0 k/uL [facility] RBC 3.69 (L) 4.20 - 5.50 [facility] m/uL [facility] HGB 11.6 (L) 12.0 - 16.0 [facility] g/dL [facility] HCT 36.1 (L) 37.0 - 47.0 % [facility] MCV 97.8 82.0 - 100.0 fL [facility] MCH 31.4 27.0 - 34.0 pg [facility] MCHC 32.1 31.0 - 37.0 [facility] g/dL [facility] RDW - SD 57.2 (H) 37.0 - 55.0 fL [facility] MPV 10.4 6.9 - 11.0 fL [facility] Platelet count 94 (L) 150 - 400 K/uL [facility] Nucleated RBC 0.00 /100 WBC [facility] Neutrophils 56.7 39.0 - 69.0 % [facility] Lymphocytes 25.8 25.0 - 45.0 % [facility] Monocytes 12.7 (H) 0.0 - 10.0 % [facility] Eosinophils 3.8 0.0 - 5.0 % [facility] Basophils 1.0 0.0 - 1.0 % [facility] Immature granulocytes 0.0 0.0 - 1.0 % [facility] Specimen Blood Performing Organization Address City/State/Zipcode Phone Number [facility] DEPARTMENT OF PATHOLOGY [address] [facility] X [address] AND GENOMIC MEDICINE [facility] [phone] [place] [address] X [address] HOSPITAL Type and screen (10/25/2018 2:18 PM CDT) Pathologist Sig nature ABO grouping O [facility] Rh type POS [facility] Antibody screen (gel) NEG [facility] Specimen Blood Performing Organization Address City/[facility]/Zipcode Phone Number [facility] DEPARTMENT OF PATHOLOGY [address] [facility] X [address] AND GENOMIC MEDICINE [facility] [address] [facility] X [address] HOSPITAL after 10/21/2018 Insurance Payer Benefit Plan / Subscriber ID Effective Dates Phone Addre ss Type Group MEDICARE MEDICARE PART A xxxxxxxxxxx 2014-Present [place], [place] Medicare AND B MEDICAID MEDICAID xxxxxxxxx 2018-Present Vt dicaid Qiana Valdez Transplant Self 1955 [phone] (Home) [place] [address] Advance Directives For more information, please contact: [phone] Type Date Recorded Patient Contestant Coordinator Explanati on Advance Directives, Living Will 10/25/2018 1:34 PM and Medical Power of Plastic Printer Code Status Date Activated Date Inactivated Comments Full Code 06/21/2018 3:48 PM 07/05/2018 4:23 PM Code Status decision reached by: Patient
--- OUTSIDE RECORDS SUMMARY | 2019-10-22 14:40 | XMS REPORT | Clinical Summary ---
:1955 Author Organization [facility] Address [address] [place] [address] Care Team Providers Name Role Phone Unavailable [...] Not on file Results Not on fileafter 10/21/2018 Insurance Payer Benefit Plan / Group Subscriber ID Type Phone A ddress [employer] MEDICARE [facility] [employer] xxxxxxxxxx [facility] MEDICAID MEDICAID OF [place] xxxxxxxxx Medicaid
--- OUTSIDE RECORDS SUMMARY | 2019-10-22 14:41 | XMS REPORT | Summary of Care ---
:1955 Author Organization [facility] Address [address] [place] [address] Care Team Providers Name Role Phone Pcp, Does Not Have A Primary Care Provider Reason for Visit Reason Comments Notification Encounter Details Date Type Department Care Team Description 11/22/2018 Telephone [facility] Trans[facility] [place] [address] [facility] [address] [place], [place] [phone] [place], [place] [address] Allergies No Known Allergiesdocumented as of this encounter (statuses as of 08/15/2019) Medications Medication Sig Dispensed Refills Start Date End Date Status aspirin 81 mg Take 81 mg by 0 Ac tive chewable tablet mouth daily. doxazosin 4 mg Take 4 mg by 0 Ac tive tablet mouth 2 (two) times daily. insulin inject 12 0 Active glargine,hum.rec.an Units under log (LANTUS U-100 the skin at INSULIN SC) bedtime. NOVOLOG U-100 inject 12 0 Active INSULIN ASPART SC Units under the skin 3 (three) times daily before meals. sevelamer carbonate Take 4 tablets 0 Active (RENVELA ORAL) by mouth 3 (three) times daily. hydrALAZINE 100 mg Take 100 mg by 0 Active tablet mouth every 8 (eight) hours. atorvastatin 40 mg Take 40 mg by 0 Active tablet mouth at bedtime. metOLazone 5 mg Take 5 mg by 0 A ctive tablet mouth daily. METOPROLOL 0 Active TARTRATE, BULK, MISC losartan 50 mg Take 100 mg by 0 Active tablet mouth daily. furosemide 80 mg Take 80 mg by 0 Active tablet mouth every morning and evening. metoclopramide HCl Take 5 mg by 0 Active 5 mg tablet mouth before meals and at bedtime. sulfamethoxazole/tr Take by mouth 0 Active imethoprim (BACTRIM 2 (two) times ORAL)Indications: daily. for avf infection Indications: for avf infection clopidogrel 75 mg Take 75 mg by 0 12/14/19 Discontinued tablet mouth daily. 19 (Discon tinued by another clinician) documented as of this encounter (statuses as of 08/15/2019) Active Problems No known active problemsdocumented as of this encounter (statuses as of 08/15/2019) Immunizations Name Administration Dates Next Due Influenza Virus Vaccine - Whole 01/20/2018 PPD (TB) 03/20/2018 Pneumococcal Polysaccharide, PPSV23 (PNEUMOVAX) 08/02/2014 documented as of this encounter Social History Tobacco Use Types Packs/Day Years Used Date Never Assessed Sex Assigned at Date Recorded Not on file Job Start Date Occupation Industry Not on file Not on file Not on file Travel History Travel Start Travel End No recent travel history available. documented as of this encounter Last Filed Vital Signs Not on filedocumented in this encounter Plan of Treatment Health Maintenance Due Date Last Done Comments DTaP,Tdap,and Td Vaccines (1 - 1968 Tdap) PAP SMEAR 1978 Breast Cancer Screening 1997 (MAMMOGRAM) COLONOSCOPY 09/05/2007 Zoster Recombinant Vaccine 09/05/2007 (SHINGRIX) (1 of 2) INFLUENZA VACCINE (Season Ended) 2019 01/20/2018 PNEUMOCOCCAL 0-64 YEARS COMBINED Aged Out 08/02/2014 No longer eligible based on SERIES patient's age to complete this topic HEPATITIS C (HCV) SCREEN Completed 11/14/2018 documented as of this encounter Results Not on filedocumented in this encounter Insurance Payer Benefit Plan / Subscriber ID Effective Dates Phone Addre ss Type Group MEDICARE MEDICARE PART xxxxxxxxxxx 2014-[place]ey[place] [phone] Medicare A & B t 2 [id number] [place] [id number] [facility] MEDICAID OF xxxxxxxxx 2018-Peyton [phone] [address] Medicaid [place] t 0 [id number] [place] [address] documented as of this encounter
--- OUTSIDE RECORDS SUMMARY | 2019-10-22 14:41 | XMS REPORT | Summary of Care ---
:1955 Author Organization [facility] Address [address] [place] [address] Care Team Providers Name Role Phone Pcp, Does Not Have A Primary Care Provider Encounter Details Date Type Department Care Team Description 03/22/2018 Orders Only [facility] Doctor Unassigned, No [address] [facility] [place] [address] [address] [place] [address] Allergies No Known Allergiesdocumented as of this encounter (statuses as of 08/20/2019) Medications No known medicationsdocumented as of this encounter (statuses as of 08/20/2019) Active Problems No known active problemsdocumented as of this encounter (statuses as of 08/20/2019) Immunizations Name Administration Dates Next Due Influenza [...] Completed 11/14/2018 documented as of this encounter Procedures Procedure Name Priority Date/Time Associated Diagnosis Comme nts TRANSPLANT/EXT PROVIDER Routine 03/22/2018 12:01 AM [facility] 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 Medicare A & B t 2 [id number] [place] [id number] documented as of this encounter
--- OUTSIDE RECORDS SUMMARY | 2019-10-22 14:41 | XMS REPORT | Continuity of Care Document ---
:1955 Author Organization [facility] t Address [address] [place] [address] Dr. Abel[address] [place] [address] Care Team Providers Name Role Phone Bert Bustamante MD Primary Care Physician Tomas TRUJILLO, K N Attending Clinician Santana DORSEY Attending Clinician Unavailable Twin TRUJILLO, Cata Attending Clinician Denisha TRUJILLO, T. Attending Clinician Elmer Hendrickson MD Attending Clinician Maria Antonia GREGG Attending Clinician Doctor Unassigned, Name Attending Clinician Unavailable Payers Payer Name Policy Policy Number Effective Expiration Source Type Date Date MEDICAREMEDICARE PART xxxxxxxxxxx 2014 [place] 00:00:00 [place] xxxxxxxxx 2018 Ike vásquez [id number] 00:00:00 Met alvarez Medicaid Problems Condition Condition Condition Status Onset Resolution Last Treating Co mments Source Name Details Category Date Date Treatment Clinician Date Hematoma Hematoma Disease Active [place] 07-20 Methodi 00:00: st 00 Acute Acute Disease Active [place] gastroente gastroente 3-20 Me thodi ritis ritis 00:00: st 00 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 00:00: st 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 thodist Social History Social Habit Start Date Stop Date Quantity Comments Source History [facility] Meth odist Alcohol Std Drinks History [facility] Meth odist Alcohol Binge Sex Assigned At [facility] ethodist Alcohol intake 2018-10-27 2018-10-[address] [facility] thodist 00:00:00 00:00:00 non-drinker of alcohol (finding) History SDOH 2018-06-21 2018-06-21 1 [place] [facility] Alcohol Frequency 00:00:00 00:00:00 Smoking Status Start Date Stop Date Source Never smoker [place] [facility] t Medications Ordered Filled Start Stop Current Ordering Indication Dosage Frequency Signature Comments Components Source Medication Medication Date Date Medication? Clinician (SIG) Name Name ergocalcife Yes 07751T Q7D Take [place] 7-25 50,000 Method[facility] (VITAMIN 15:19: Units by st D2) 50,000 42 mouth once unit a week. capsule multivitami Yes 1{tbl} QD Take 1 [place] 7-25 tablet by Methodi (DAILY-LARON 15:19: mouth st ORAL) 42 daily. doxazosin Yes 4mg Q.5D Take 4 mg Ike ston (CARDURA) 4 7-25 by mouth 2 Me thodi MG tablet 15:19: (two) st 42 times a day. atorvastati Yes 40mg QD Take 40 mg Patten n (LIPITOR) 7-25 by mouth Meth ale 40 MG 15:19: daily. st tablet 42 pantoprazol Yes 40mg QD Take 40 mg Patten e 7-25 by mouth Methodi (PROTONIX) 15:19: daily. st 40 MG EC 42 tablet isosorbide Yes 30mg QD Take 30 mg [place] mononitrate 7-25 by mouth Meth ale (IMDUR) 30 15:19: daily. st MG 24 hr 42 tablet HYDROcodone 2018- 2019- No 1{tbl} Q6H Take 1 [place] -acetaminop 10-26 07-31 tablet by Hi cassandra [place] (NORCO) 00:00: 23:[address] 5-325 mg 00 :00 every 6 per tablet (six) hours as needed for moderate pain for up to 30 doses. Max Daily Amount: 4 tablets metOLazone 2018- Yes TK 1 T PO [place] (ZAROXOLYN) 7-12 D Methodi 5 MG tablet 00:00: st 00 metoprolol Yes TK 1 T PO [place] tartrate 7-12 BID Methodi (LOPRESSOR) 00:00: st 25 mg 00 tablet aspirin 2018- Yes Sandor (ECOTRIN) 7-10 Methodi 81 MG 00:00: st enteric 00 coated tablet furosemide Yes Take by Haja ruiz (LASIX) 40 7-10 mouth. Methodi mg tablet 00:00: st 00 hydrALAZINE Yes 1{tbl} Take 1 [place] (APRESOLINE 7-09 tablet by Met edmondson ) 100 MG 00:00: mouth. st tablet 00 lactulose Yes Take by Laura on (CEPHULAC) 7-09 mouth. Methodi 10 gram 00:00: st packet 00 lanthanum Yes Take by Laura on 1,000 mg 7-09 mouth. Methodi powder in 00:00: st packet 00 NIFEdipine 2018- Yes 1{tbl} Take 1 [place] XL 7-09 tablet by Hardy (PROCARDIA 00:00: mouth. st XL) 60 MG 00 24 hr tablet Vital Signs Vital Name Observation Time Observation Value Comments Source Systolic blood 2018-10-26 14:30:00 149 mm[Hg] Walter Lewis pressure Diastolic blood 2018-10-26 14:30:00 73 mm[Hg] Laura Lewis pressure Heart rate 2018-10-26 14:30:00 60 /min Sandor Lewis Respiratory rate 2018-10-26 14:30:00 17 /min Haja Lewis Oxygen saturation in 2018-10-26 14:30:00 96 /min Sandor Lewis Arterial blood by Pulse oximetry Body temperature 2018-10-26 14:00:00 36.78 Priya Hous joesph Orthodox Body height 2018-10-26 09:36:00 160 cm Sandor Orthodox Body weight 2018-10-26 09:36:00 67.132 kg Sandor Lewis BMI 2018-10-26 09:36:00 26.22 kg/m2 Sandor Lewis Procedures Procedure Date / Time Performing Clinician Source Performed POC GLUCOSE 2018-10-26 12:48:00 Klaus Denny ANESTHESIA PERIPHERAL 2018-10-26 10:40:02 Reji Hendrickson BLOCK POC PANEL 4 2018-10-26 10:03:00 Klaus Denny BASIC METABOLIC PANEL 2018-10-26 09:57:00 Klaus Denny ESTIMATED GFR 2018-10-26 09:57:00 Klaus Denny XR CHEST 2 VW 2018-10-25 15:12:35 Sandor Hurd ECG PRE/POST OP 2018-10-25 14:27:39 Sandor Hurd HC COMPLETE BLD COUNT 2018-10-25 14:18:00 Klaus Denny W/AUTO DIFF PARTIAL THROMBOPLASTIN 2018-10-25 14:18:00 Klaus Denny TIME (PTT) PROTHROMBIN TIME WITH INR 2018-10-25 14:18:00 Klaus Denny TYPE AND SCREEN 2018-10-25 14:18:00 Klaus Denny Plan of Care Planned Activity Planned Date Details Comments Source Future Scheduled 2020-08-11 Screening for [facility] Test 00:00:00 malignant neoplasm of cervix (procedure) [code = 845534220] Future Scheduled 2019-11-16 BREAST CANCER [facility] Test 00:00:00 SCREENING [code = BREAST CANCER SCREENING] Future Scheduled 2019-11-03 INFLUENZA VACCINE [facility] Test 00:00:00 [code = INFLUENZA VACCINE] Future Scheduled 2007-09-05 COLONOSCOPY SCREENING [place] [facility] Test 00:00:00 [code = COLONOSCOPY SCREENING] Future Scheduled 2007-09-05 SHINGLES VACCINES [place] [facility] Test 00:00:00 (#1) [code = SHINGLES VACCINES (#1)] Future Scheduled 1967-09-05 DIABETIC FOOT EXAM [place] [facility] Test 00:00:00 [code = DIABETIC FOOT EXAM] Future Scheduled 1955 DIABETIC RETINAL EYE [facility] Test 00:00:00 EXAM [code = DIABETIC RETINAL EYE EXAM] Encounters Start End Encounter Admission Attending Care Care Encounter Source Date/Time Date/Time Type Type Clinicians Facility Department ID 2018-09-18 Outpatient [facility] [address] [facility] 08:26:04 2019-08-15 2019-08-15 Telephone Rios [facility] [id number] 00:00:00 00:00:00 Meagan shah MULTISPEC 350.1.13.10 [place] 4.2.7.2.686 [place] [id number] [place] [address] [facility] 2018-11-22 2018-11-22 Telephone Twin [facility] [id number] 00:00:00 00:00:00 Bertrand Iyv MULTISPEC 350.1.13.10 [place] 4.2.7.2.686 [place] [id number] [place] [address] [facility] 2018-06-30 2018-06-30 Orders Doctor STEARNS [id number] 00:00:00 00:00:00 Only Unassigned, DEEDEE 350.1.13.10 [facility] 4.2.7.2.686 [id number] [id number] 2018-03-30 2018-03-30 Orders Doctor STEARNS [id number] 00:00:00 00:00:00 Only Unassigned, [place] 350.1.13.[address] [place].7.2.686 [id number] [id number] 2018-03-22 2018-03-22 Orders Doctor STEARNS 1.2.840.114 [id number] 00:00:00 00:00:00 Only Unassigned, DEED[place] 350.1.13.10 [place] [facility] .2.7.2.686 [id number] [id number] 2018-03-16 2018-03-16 Orders Doctor JINNY [id number] 00:00:00 00:00:00 Only Unassigned, DEED[place] 350.1.13.10 [place] [address].2.7.2.686 [id number] [id number] 2018-01-22 2018-01-22 Emergency E MHSE MHSE [id number] 16:17:00 16:17:00 [facility] 2017-11-24 2017-11-24 Orders Doctor JINNY [id number] 00:00:00 00:00:00 Only Unassigned, DEEDEE 350.1.13.10 [place] [address].2.7.2.686 [id number] [id number] Results Test Description Test Time Test Comments Results Result Comments Source POC glucose 2018-10-26 12:55:13 Test Item Value Reference Range Interpretation Comme [facility] POC glucose (test code = 140 mg/dL 65-99 H Met er ID: [id number]: [id number]) [place] [facility] Interpretation (test code = Abnormal 33792-0) Sandor MethodistBasic metabolic [id number] 10:36:32 Test Item Value Reference Range Interpretation Comments Sodium (test code = 2951-2) 136 135- 148 mEq/L Potassium (test code = 2823-3) 5.6 3.5- 5.0 mEq/L H Chloride (test code = 2075-0) 98 98- 112 mEq/L CO2 (test code = 8-9) 25 24- 31 mEq/L Anion gap (test code = 61985-8) 13@ANIO 7- 15 mEq/L BUN (test code = 3094-0) 51 mg/dL 8-23 H Creatinine (test code = 2160-0) 5.52 mg/dL 0.5-0.9 H Glucose (test code = 2345-7) 194 mg/dL 65-99 H Calcium (test code = 45453-0) 8.7 mg/dL 8.8-10.2 L Lab Interpretation (test code = Abnormal 62650-4) Patten MethodistEstimated [id number] 10:36:32 Test Item Value Reference Range Interpretation Comments Estimated GFR (test 8 mL/min/1.73 m2 Cata boyer Units code = 5488) InterpretationG 1 >=90 Bianca l or highG2 60-89 Mildly decrease dG3a 45-59 Mil dly to moderately decr ecsmzP3g 30-44 Moderately to s everely decreasedG4 15-29 Severe ly decreasedG5 <15 Kidney jeffery lureThe eGFR was calcul ated using the Chron Kidney Disease Epidemiology Collaboration ( CKD-EPI) equation. Interpretation is based on recommendati ons of the National [facility]-Kidn ey Disease Outcome s Quality Initiat cristela (NKF-KDOQI) pub lished in 2013. Lab Interpretation Abnormal (test code = 65668-5) [facility] panel 10:04:40 Test Item Value Reference Range Interpretation Comments POC sodium (test code = 137 mmol/L 402-822 4427-0) POC potassium (test code 5.3 mmol/L 3.5-5 H = 6298-4) POC hematocrit (test code 36 % 37-47 L = 4544-3) POC glucose (test code = 185 mg/dL 65-99 H 2339-0) POC hemoglobin (test code 12.2 g/dL 12-[address] ID: = 718-7) [id number]: Jim Dubon Lab Interpretation (test Abnormal code = 54218-9) Patten MethodistEC Pre/Post [id number] 17:40:12 Test Item Value Reference Range Interpretation Comments Ventricular rate (test 65 code = 253) Atrial rate (test code 65 = 255) OK interval (test code 172 = 266) QRSD interval (test 92 code = 260) QT interval (test code 462 = 264) QTC interval (test 480 code = 265) P axis 1 (test code = 54 267) QRS axis 1 (test code 14 = 268) T wave axis (test code 181 = 270) EKG impression (test Electronic atrial code = 273) pacemaker-Voltage criteria for left ventricular hypertrophy-ST & T wave abnormality, consider inferolateral ischemia-Prolonged QT-Abnormal ECG-In automated comparison with ECG of 22-JUN-2018 17:03,-Electronic atrial pacemaker has replaced Sinus rhythm-RSR' pattern in V1 is no longer present- Sandor MethodistType and [id number] 16:30:00 Test Item Value Reference Range Interpretation Comments ABO grouping (test code = 883-9) O Rh type (test code = 20046-8) POS Antibody screen (gel) (test code = NEG 890-4) Sandor MethodistXR Chest 2 [id number] 15:17:53Hm Interface, Radiology Results Incoming - 10/25/2018 3:20 PM CDTExamination: XR CHEST 2 VWClinical history: "Z01.818 Encounter for other preprocedural examination, Pre OP Testing" Comparison: 07/02/2018Two radiographic views of the chest were evaluated. IMPRESSION: There are no apparent infiltrates, pleural effusions, or pneumothoraces. The left jugular tunneled hemodialysis catheter and the right cardiac regulating device appear unchanged. The prominent cardiomediastinal silhouette and the imaged bones are stable in appearance. [facility]-[id number] MethodistPartial thromboplastin time, [id number] 15:06:39 Test Item Value Reference Range Interpretation Comments PTT (test code = 37.5 23.0- 36.0 sec H PTT thera peutic range 3173-2) for unfractiona levi heparin is61.0- 112.0 seconds which corresponds to Anti-Xa0.3-0.7 U/ml. Lab Interpretation Abnormal (test code = 71165-7) Sandor BarahonaistProthrombin time with [id number] 15:06:24 Test Item Value Reference Range Interpretation Comments Prothrombin time (test 14.1 11.5- 14.5 sec code = 5902-2) INR (test code = 1.1 The Interna tional 96212-9) Normalized Rati o (INR) is a therapeutic m onitoring tool for patien ts who are stable on oral anticoagulant t herapy. An INR of 2.0-3.0 is suggested for d eep vein thrombosis/pulm onary embolism. [facility] with platelet and [id number] 14:54:33 Test Item Value Reference Range Interpretation Comments WBC (test code = 75400-6) 2.9 4.5- 11.0 k/uL L RBC (test code = 63656-1) 3.69 m/uL 4.2-5.5 L HGB (test code = 718-7) 11.6 g/dL 12-16 L HCT (test code = 4544-3) 36.1 % 37-47 L MCV (test code = 787-2) 97.8 fL 82-100 MCH (test code = 785-6) 31.4 pg 27-34 MCHC (test code = 786-4) 32.1 g/dL 31-37 RDW - SD (test code = 21483-7) 57.2 fL 37-55 H MPV (test code = 76264-0) 10.4 fL 6.9-11 Platelet count (test code = 94 K/uL 150-400 L 65710-1) Nucleated RBC (test code = 36509-2) 0.00 /100 WBC Neutrophils (test code = 98221-5) 56.7 % 39-69 Lymphocytes (test code = 58297-1) 25.8 % 25-45 Monocytes (test code = 82292-0) 12.7 % 0-10 H Eosinophils (test code = 86908-4) 3.8 % 0-5 Basophils (test code = 52479-6) 1.0 % 0-1 Immature granulocytes (test code = 0.0 % 0-1 44511-2) Lab Interpretation (test code = Abnormal 78854-2) Sandor Lewis
--- OUTSIDE RECORDS SUMMARY | 2019-10-22 14:41 | XMS REPORT | Summary of Care ---
:1955 Author Organization [facility] - Health Address [address] [place] [address] Care Team Providers Name Role Phone Pcp, Does Not Have A Primary Care Provider Encounter Details Date Type Department Care Team Description 11/24/2017 Orders Only [facility] Doctor Unassigned, No 301 [facility] [place] [address] [address] [place] [address] Allergies No Known Allergiesdocumented as of this encounter (statuses as of 08/20/2019) Medications No known medicationsdocumented as of this encounter (statuses as of 08/20/2019) Active Problems No known active problemsdocumented as of this encounter (statuses as of 08/20/2019) Immunizations Name Administration Dates Next Due Pneumococcal Polysaccharide, PPSV23 (PNEUMOVAX) 08/02/2014 documented as [...] Associated Diagnosis Comme nts TRANSPLANT/EXT PROVIDER Routine 11/24/2017 12:01 AM CARDIOLOGY TESTING CDT documented in this encounter Results Not on filedocumented in this encounter Insurance Payer Benefit Plan / Subscriber ID Effective Dates Phone Addre ss Type Group MEDICARE MEDICARE PART xxxxxxxxxxx 2014-[place] [phone] Medicare A & B t 2 [id number] GRICELDA MARY [phone] documented as of this encounter
--- OUTSIDE RECORDS SUMMARY | 2019-10-22 14:41 | XMS REPORT | Summary of Care ---
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 Medicare A & B t 2 [id number] GRICELDA MARY [phone] documented as of this encounter
--- OUTSIDE RECORDS SUMMARY | 2019-10-22 14:41 | XMS REPORT | Summary of Care ---
:1955 Author Organization [facility] Address [address] [place] [address] Care Team Providers Name Role Phone Pcp, Does Not Have A Primary Care Provider Reason for Visit Reason Comments Pre-Transplant kidney Encounter Details Date Type Department Care Team Description 08/15/2019 Telephone [facility] [employer] Carmenarunhonorio, Pre-Transplan t Transplant[place] Meagan Molina MD (kidney) [facility] [address] [facility] [address] [place] [address] [id number] [place], [place] [phone] [place], [place] [phone] Allergies No Known Allergiesdocumented as of this encounter (statuses as of 08/15/2019) Medications Medication Sig Dispensed Refills Start Date End Date Status aspirin 81 mg chewable Take 81 mg by 0 Active tablet mouth daily. doxazosin 4 mg tablet Take 4 mg by 0 Active mouth 2 (two) times daily. insulin inject 12 Units 0 Acti ve glargine,hum.rec.anlog under the skin at (LANTUS U-100 INSULIN bedtime. SC) NOVOLOG U-100 INSULIN inject 12 Units 0 Active ASPART SC under the skin 3 (three) times daily before meals. sevelamer carbonate Take 4 tablets by 0 Active (RENVELA ORAL) mouth 3 (three) times daily. hydrALAZINE 100 mg Take 100 mg by 0 Active tablet mouth every 8 (eight) hours. atorvastatin 40 mg Take 40 mg by 0 Active tablet mouth at bedtime. metOLazone 5 mg tablet Take 5 mg by 0 Active mouth daily. METOPROLOL TARTRATE, 0 Active BULK, MISC losartan 50 mg tablet Take 100 mg by 0 Active mouth daily. furosemide 80 mg tablet Take 80 mg by 0 Active mouth every morning and evening. metoclopramide HCl 5 mg Take 5 mg by 0 Active tablet mouth before meals and at bedtime. sulfamethoxazole/trimet Take by mouth 2 0 Active hoprim (BACTRIM (two) times ORAL)Indications: for daily. avf infection Indications: for avf infection documented as of this encounter (statuses as [...] ss Type Group MEDICARE MEDICARE PART xxxxxxxxxxx 2014-[place] [phone] [address] Medicare A & B t 2 [id number] GRICELDA MARY [id number] [facility] MEDICAID OF xxxxxxxxx 2018-Presen [phone] [address] Medicaid [place] t 0 [id number] [place] [address] documented as of this encounter
--- OUTSIDE RECORDS SUMMARY | 2019-10-22 14:41 | XMS REPORT | Summary of Care ---
:1955 Author Organization [facility] - Health Address [address] [place] [address] Care Team Providers Name Role Phone Pcp, Does Not Have A Primary Care Provider Encounter Details Date Type Department Care Team Description 06/30/2018 Orders Only [facility] Doctor Unassigned, No 301 [facility] [place] [address] [address] [place] [address] Allergies No Known Allergiesdocumented as of this [...] Associated Diagnosis Comme nts TRANSPLANT/EXT PROVIDER Routine 06/30/2018 12:01 AM CARDIOLOGY TESTING CDT documented in this encounter Results Not on filedocumented in this encounter Insurance Payer Benefit Plan / Subscriber ID Effective Dates Phone Addre ss Type Group MEDICARE MEDICARE PART xxxxxxxxxxx 2014-[place] [phone] [address] Medicare A & B t 2 [id number] GR[place]ELDA MARY [id number] documented as of this encounter
--- OUTSIDE RECORDS SUMMARY | 2019-10-22 14:41 | XMS REPORT | Summary of Care ---
:1955 Author Organization [facility] - Health Address [address] [place] [address] Care Team Providers Name Role Phone Pcp, Does Not Have A Primary Care Provider Encounter Details Date Type Department Care Team Description 03/16/2018 Orders Only [facility] Doctor Unassigned, No 301 [facility] [place] [address] [address] [place] [address] Allergies No Known Allergiesdocumented as of this encounter (statuses as of 08/20/2019) Medications No known medicationsdocumented as of this encounter (statuses as of 08/20/2019) Active Problems No known active problemsdocumented as of this encounter (statuses as of 08/20/2019) Immunizations Name Administration Dates Next Due Influenza Virus Vaccine - Whole 01/20/2018 Pneumococcal Polysaccharide, PPSV23 (PNEUMOVAX) 08/02/2014 documented as [...] Associated Diagnosis Comme nts TRANSPLANT/EXT PROVIDER Routine 03/16/2018 12:01 AM CARDIOLOGY TESTING ECONOMIC RESEARCH ANALYST documented in this encounter Results Not on filedocumented in this encounter Insurance Payer Benefit Plan / Subscriber ID Effective Dates Phone Addre ss Type Group MEDICARE MEDICARE PART xxxxxxxxxxx 2014-[place] [phone] [address] Medicare A & B t 2 [id number] [place]ELDA MARY [id number] documented as of this encounter
[2019-10-22] MEDS: INSULIN -REGULAR HUMAN 50 UNIT/0.5 ML ML SQ SCH ×2 (16:30→21:00)
[2019-10-22] MEDS: MORPHINE 2 MG/ML SYR IV PRN (17:06)
[2019-10-22] MEDS: HYDROCODONE/APAP 7.5/325 MG TAB PO PRN (19:44)
[2019-10-22] MEDS: LABETALOL 20 MG/4ML SYRINGE IV PRN (19:44)
[2019-10-23] MEDS ORDERED: NIFEDIPINE XL 60 MG TABLET PO ONE (00:55)
[2019-10-23] MEDS ORDERED: TRAZODONE 50 MG TABLET PO ONE (00:58)
--- NOTE | 2019-10-23 02:36 | CON ---
Date of Consultation: 10/22/2019 Chief Complaint: End-stage renal disease, on dialysis. History Of Present Illness: The patient is a 64-year-old female with past medical history of myocard ial infarction; coronary artery disease, status post CABG; end-stage renal disease, on dialysis, , Tuesday, Tuesday via AV fistula; hypertension; diabetes; hyperlipidemia; pacemaker placement. T he patient was transferred from Dialysis Unit to emergency department because of sudden onset of dysa rthria, headache. Blood pressure was 140/70. Dialysis was terminated earlier because the patient de veloped some distress with headache. The patient in the emergency room, was found to have elevated t roponin of 0.44. EKG showed ST changes similar to previous EKG with ST wave deviation. BNP was up t o 86,690. Chest x-ray did not show acute abnormalities. The patient in the emergency room was calm and not in any distress. She was a poor historian. She c ould not provide recent medical history. The patient continues to have some chest discomfort. She d eveloped chest pain during dialysis. Cardiac enzymes were studied. The patient has history of conge stive heart failure with ejection fraction of 33%. Cardiac catheterization done in October 2018, which shows severe coronary artery disease and medical management was recommended. Cardiac echo was done o n February 2019 and showed normal ejection fraction. Review of Systems: Constitutional: Denies syncope. Eyes: Denies vision changes. Ears, Nose, Mouth and Throat: Denies sore throat, earache. Respiratory: Has some shortness of breath. Denies PND, orthopnea. Cardiovascular: Has chest pain. Denies syncope. GI: Denies nausea or vomiting. : Denies dysuria or hematuria. Musculoskeletal: Denies muscle aches or joint swelling. All other systems reviewed and all are negative. Past Medical History: Diabetes mellitus; hypertension; end-stage renal disease, on dialysis Tuesday, Tuesday, Tuesday; GERD; chronic ischemic heart disease; systolic dysfunction; congestive heart failu re; hyperparathyroidism; anemia due to chronic kidney disease, iron deficiency; pacemaker; tubal liga tion; CABG in 2016; fistula reconstruction 4 times; bilateral cataract surgery. Family History: No kidney disease. Social History: Denies tobacco, alcohol, or illicit drugs. Physical Examination: General: The patient is calm and follow commands. Eyes: Anicteric sclerae. EOMI. Ears, Nose, Mouth, and Throat: Oral mucosa moist. No pallor. Neck: Supple. No JVD. No bruits. Lungs: Diminished breath sounds at bases. No wheezing. No rhonchi. Heart: S1, S2. No pericardial friction rub. Abdomen: Soft, benign, nontender. No rebound. No guarding. Extremities: No edema. No clubbing. No cyanosis. Neurologic: Moving extremities. Cranial nerves intact. Laboratory Data: WBC 4.1, hemoglobin 11.4, sodium 137, potassium 4.0, BUN 40, creatinine 5.5, glucos e 126. Bilirubin 0.6. Impression And Plan: 1.End-stage renal disease. The patient is undergoing workup for acute coronary syndrome, acute myoc ardial infarction non-ST elevation. The patient will be seen by hat renovator. Echocardiogram will b e re-evaluated. The patient has diastolic dysfunction. 2.BNP is elevated. Continue low-sodium diet and p.o. fluid restriction. The patient may need to giron ve additional dialysis session tomorrow to manage the fluid overload. Today, the patient is asymptom atic as far as dyspnea. The patient although has severe coronary artery disease. The patient likely will have cardiac catheterization and after cardiac catheterization, dialysis will be done to preven t hyperkalemia related to contrast induced electrolyte shift. 3.Anemia. At this point, the patient does not need MELA. Hemoglobin is over 11. Monitor hemoglobin level. Resume MELA if hemoglobin is below 10. 4.Renal osteodystrophy. Continue renal diet and binders. 5.Hypertension. Continue blood pressure medication. Continue beta kath for coronary artery dise ase and acute coronary syndrome. EB/MODL Voice ID: [id number] Report ID: [id number]
[2019-10-23 04:15] LABS: Basophils % 1.4 % (0-1.3); Hematocrit 30.3 % (36.0-45.0); Lymphocytes % 30.7 % (15.3-44.8); MPV 8.3 fL (7.6-11.3); RBC Red Blood Cell Count 3.01 M/uL (3.86-4.86)
[2019-10-23 04:38] LABS: Magnesium 2.5 mg/dL (1.8-2.4)
[2019-10-23 04:40] LABS: Potassium 5.6 mmol/L (3.5-5.1)
[2019-10-23] MEDS: INSULIN -REGULAR HUMAN 50 UNIT/0.5 ML ML SQ SCH ×3 (07:30→16:30)
[2019-10-23] MEDS: SUCROFERRIC OXYHYDROXIDE 500 MG PO SCH ×3 (08:00→16:48)
[2019-10-23] MEDS: HYDROCODONE/APAP 7.5/325 MG TAB PO PRN (08:47)
[2019-10-23] MEDS ORDERED: ASPIRIN EC 81 MG TAB PO SCH (09:00)
[2019-10-23] MEDS ORDERED: ISOSORBIDE MONO SR 30 MG TAB PO SCH (09:00)
[2019-10-23] MEDS ORDERED: LOSARTAN POTASSIUM 50 MG TABLET PO SCH (09:00)
[2019-10-23] MEDS ORDERED: NIFEDIPINE XL 60 MG TABLET PO SCH (09:00)
[2019-10-23] MEDS ORDERED: carvediloL 12.5 MG TAB PO SCH (09:00)
[2019-10-23] MEDS ORDERED: ENOXAPARIN 30 MG/0.3 ML SQ SCH ×2 (09:00)
[2019-10-23 09:20] VITALS: O2SAT 95
[2019-10-23] MEDS: HYDRALAZINE HCL 20 MG/ML VIAL IV PRN (09:47)
--- NOTE | 2019-10-23 10:17 | EKG ---
Test Date: 2019-10-22 Test Time: 09:48:17 Final Rail Cutter: PRABHU MEASUREMENT RESULTS: Intervals: Rate: 72 [place]: 142 QRSD: 96 QT: 452 QTc: 494 [place]: P: 55 [place]: 142 QRS: 42 T: 223 INTERPRETIVE STATEMENTS: Normal sinus rhythm RSR' or QR pattern in V1 suggests right ventricular conduction delay ST & T wave abnormality, consider inferolateral ischemia Prolonged QT Abnormal ECG Compared to ECG 07/30/2019 21:35:51 RSR' in V1 or V2 now present Prolonged QT interval now present Atrial-paced complex(es) or rhythm no longer present Left ventricular hypertrophy no longer present ST (T wave) deviation still present Possible ischemia still present Electronically Signed On 10-23-19 10:14:07 CDT by Papi Mi
--- NOTE | 2019-10-23 10:27 | P.PN ---
Subjective Date of Service: 10/23/19 Chief Complaint: NSTEMI Subjective: No new changes Patient still reporting intermittent chest pain <Talha Stern - Last Filed: 10/23/19 10:24> Date of Service: 10/23/19 <Edward Bolivar - Last Filed: 10/23/19 14:14> Review of Systems 10-point ROS is otherwise unremarkable Cardiovascular: Chest Pain <Talha Stern - Last Filed: 10/23/19 10:24> Physical Examination - Vital Signs Temperature: 97.3 F Blood Pressure: 205/91 Pulse: 65 Respirations: 18 Pulse Ox (%): 98 - Physical Exam General: Alert, In no apparent distress HEENT: Atraumatic, PERRLA, EOMI Neck: Supple, JVD not distended Respiratory: Clear to auscultation bilaterally, Normal air movement Cardiovascular: Regular rate/rhythm, Normal S1 S2 Gastrointestinal: Normal bowel sounds, No tenderness Musculoskeletal: No tenderness Integumentary: No rashes Neurological: Normal speech, Normal tone, Normal affect - Studies Laboratory Data (last 24 hrs) 10/23/19 03:56: Sodium 138, Potassium 5.6 H*, BUN 53 H, Creatinine 7.43 H* D, Glucose 110 H, Magnesium 2.5 H 10/23/19 03:56: WBC 3.4 L D, Hgb 10.3 L, Hct 30.3 L, Plt Count 99 L D 10/23/19 03:56: Troponin I 0.46 H 10/22/19 20:30: Troponin I 0.44 H 10/22/19 13:00: Troponin I 0.44 H 10/22/19 10:00: Sodium 137, Potassium 4.0, BUN 40 H, Creatinine 5.50 H*, Glucose 126 H, Total Bilirubin 0.6, AST 38 H, ALT 51, Alkaline Phosphatase 141 H <Talha Stern - Last Filed: 10/23/19 10:24> - Studies Laboratory Data (last 24 hrs) 10/23/19 03:56: Sodium 138, Potassium 5.6 H*, BUN 53 H, Creatinine 7.43 H* D, Glucose 110 H, Magnesium 2.5 H 10/23/19 03:56: WBC 3.4 L D, Hgb 10.3 L, Hct 30.3 L, Plt Count 99 L D 10/23/19 03:56: Troponin I 0.46 H 10/22/19 20:30: Troponin I 0.44 H Microbiology Data (last 24 hrs): 10/22/19 15:48 Nasopharnyx Coronavirus COVID-19 PCR - Final <Edward Bolivar - Last Filed: 10/23/19 14:14> Assessment & Plan Discharge Plan: Home Plan to discharge in: 24 Hours - Code Status/Comfort Care Code Status Assessed: Yes (Patient is full code) Physician Review Additional Text: Impression: NSTEMI: Severe coronary artery disease with CABG x3 in 2016 and pacemaker in-situ: End-stage renal disease on dialysis Tuesday: Type 2 diabetes mellitus: Hyperlipidemia: Essential hypertension: Plan: NSTEMI: On admission patient had an elevated troponin of 0.44, 2nd troponin 0.44, 3rd troponin 0.46. Cardiology has seen the patient, did not recommend cardiac catheterization as patient has had recent heart catheterization. Recommend medical management. Patient still hypertensive, I have restarted patient's home medications, will continue to monitor closely. Once blood pressure stabilizes patient can likely be discharged. Anticipate discharge tomorrow. Appreciate further input from cardiology. Severe coronary artery disease with CABG x3 in 2016 and pacemaker in-situ: These are findings on the cardiac catheterization from October of 2018. Will resume home medications once verified. Patient is a poor historian and does not know which medication she uses. States that her daughter gives her her medications and knows her PCP. End-stage renal disease on dialysis Tuesday: Nephrology has been consulted, patient did not finish dialysis yesterday. Patient's potassium today is 5.6, patient may require dialysis today. Appreciate further input from nephrology. Type 2 diabetes mellitus: Will order Accu-Cheks a.c. HS. Will start sliding scale insulin. Monitor blood glucose. Will check hemoglobin A1c. Hyperlipidemia: Will resume home medications. Essential hypertension: Home medications restarted, patient still has p.r.n. hydralazine and Lopressor ordered. Will continue to monitor closely. Critical Care: No Time Spent Managing Pts Care (In Minutes): 55 <Talha Stern - Last Filed: 10/23/19 10:24> Physician Review Additional Text: Patient was seen and examined Agree with the assessment and plan <Edward Bolivar - Last Filed: 10/23/19 14:14>
--- NOTE | 2019-10-23 11:21 | PN ---
Date of Progress Note: 10/23/2019 Subjective: Ms. Valdez is a 64-year-old woman. She has a history of coronary artery disease status p ost CABG. Has a history of end-stage renal disease, diabetes, hypertension, dyslipidemia. Heart cat heterization in October of 2018 showed a patent graft to the right coronary artery, patent graft to the OM, completely occluded LAD and circumflex and RCA. She had a BAUER to the LAD that was patent with a bout 30% restenosis at the anastomotic site. Films were reviewed today. She had come back with ches t pain in July 2019 and had a normal Cardiolite. She is chest pain free now. Her troponin is minim ally elevated. Objective: Vital Signs: Stable. She was afebrile. Chest: Clear. Cardiac: Exam revealed an S4 gallop. Regular rhythm and rate. Extremities: She had no edema. Impression And Plan: Coronary artery disease status post coronary artery bypass grafting. Recent ne gative stress test in July 2019. Patent graft in October 2018. I still think the patient can have ang carlos from her [place] coronaries. I would send her home. I would like to double her carvedilol from 1 2.5 mg b.i.d. to 25 mg b.i.d. and consider using Imdur 30 mg daily. I will leave that up to Dr. Richard day, but from my standpoint, she can go home today. She has end-stage renal disease. She will get bette lyzed tomorrow. Her other problems including diabetes, hypertension, and dyslipidemia are stable. I will be happy to see Ms. Valdez in the office as an outpatient. If her chest pain continues to worse n despite doubling the beta-kath, I will recatheter her again. DENG/LYRICL Voice ID: [id number] Report ID: [id number]
[2019-10-23] MEDS: LABETALOL 20 MG/4ML SYRINGE IV PRN (11:36)
[2019-10-23 12:15] VITALS: TEMP 97.2
--- NOTE | 2019-10-23 14:34 | P.DS ---
Admission Date: 10/23/19 Discharge Date: 10/23/19 Reason for Admission: NSTEMI Consultations: Cardiology- Dr. Mi Nephrology- Dr. Garcia Procedures: CT head FINDINGS: An intracranial bleed is not seen . The ventricles are normal in caliber. No extra-axial fluid collection is noted. Fluid within the sinuses/ mastoids is not seen. Mild to moderate mucoperiosteal thickening left maxillary sinus IMPRESSION: No acute intracranial abnormality is seen. If patient's symptoms persist MRI of the brain would be recommended. Chest x-ray FINDINGS: The lungs appear clear of acute infiltrate. The heart is mildly to moderately enlarged. Enlarged. Pacemaker leads are in place. IMPRESSION: No acute abnormalities displayed Medical problem list Chest pain End-stage renal disease on chronic dialysis Tuesday Diabetes mellitus type 2-diet controlled Hypertension Brief History of Present Illness: 64-year-old female with medical history of end-stage renal disease on hemodialysis, hypertension, diabetes mellitus type 2 present to the emergency department for chest pain. Patient is admitted for further evaluation and management. Hospital Course: 64-year-old female was admitted for chest pain after initial troponin was elevated at 0.44. 2nd troponin was 0.44, 3rd troponin was 0.46. Nephrology and Cardiology saw patient. Patient had recent heart catheterization in 2019 and recent echocardiogram earlier this year. Patient with extensive coronary artery disease in multiple bypass surgeries. At this time cardiology recommends medical management with adjustment of carvedilol 12.5 mg twice daily to 25 mg twice daily and addition of isosorbide mononitrate 30 mg daily. Patient doing m uch better today, states she is having very little if any pain. Potassium was 5.6 with morning labs so she will complete 2 hr of dialysis today. At discharge patient will be expected to follow up both with primary care and cardiology in addition to nephrology for chronic hemodialysis. Strict return precautions given regards to chest pain. Cardiology consult states that if patient persists having pain with increased beta-kath dose and isosorbide that he will plan for another heart catheterization. Patient is amenable with this plan. Patient with history of hypertension, at discharge she will continue with carvedilol 25 mg p.o. twice daily, isosorbide mononitrate 30 mg p.o. once daily, nifedipine 60 mg p.o. twice daily, losartan 100 mg p.o. once daily. Further dosing of medications can be completed by primary care doctor. Patient history of diabetes mellitus type 2 patient reports that she has not been taking insulin as her sugars have been very well controlled with diet. Ria joyce's blood sugars in the 100 is during this hospitalization. Will recommend patient continue with current therapy. Further adjust her admission medications can be completed by primary care doctor. <Talha Stern - Last Filed: 10/23/19 16:48> Admission Date: 10/23/19 Discharge Date: 10/24/19 <Edward Bolivar - Last Filed: 10/24/19 16:43> Disposition: ROUTINE DISCHARGE Discharge Condition: FAIR Vital Signs/Physical Exam: Temp Pulse Resp BP Pulse Ox 97.2 F 60 16 145/69 H 99 10/23/19 12:00 10/23/19 13:36 10/23/19 12:00 10/23/19 13:36 10/23/19 12:00 General: Alert, In no apparent distress HEENT: Atraumatic, PERRLA, EOMI Neck: Supple, JVD not distended Respiratory: Clear to auscultation bilaterally, Normal air movement Cardiovascular: Regular rate/rhythm, Normal S1 S2 Gastrointestinal: Normal bowel sounds, No tenderness Musculoskeletal: No tenderness Integumentary: No rashes Neurological: Normal speech, Normal tone, Normal affect Urinary: Dialysis catheter Laboratory Data at Discharge: WBC 3.4 K/uL (4.3-10.9) L D 10/23/19 03:56 Hgb 10.3 g/dL (12.0-15.0) L 10/23/19 03:56 Hct 30.3 % (36.0-45.0) L 10/23/19 03:56 Plt Count 99 K/uL (152-406) L D 10/23/19 03:56 Sodium 138 mmol/L (136-145) 10/23/19 03:56 Potassium 5.6 mmol/L (3.5-5.1) H* 10/23/19 03:56 BUN 53 mg/dL (7-18) H 10/23/19 03:56 Creatinine 7.43 mg/dL (0.55-1.3) H* D 10/23/19 03:56 Glucose 110 mg/dL (74-106) H 10/23/19 03:56 Magnesium 2.5 mg/dL (1.8-2.4) H 10/23/19 03:56 Total Bilirubin 0.6 mg/dL (0.2-1.0) 10/22/19 10:00 AST 38 U/L (15-37) H 10/22/19 10:00 ALT 51 U/L (12-78) 10/22/19 10:00 Alkaline Phosphatase 141 U/L (45-117) H 10/22/19 10:00 Troponin I 0.46 ng/mL (0.0-0.045) H 10/23/19 03:56 <Talha Stern - Last Filed: 10/23/19 16:48> Vital Signs/Physical Exam: Temp Pulse Resp BP Pulse Ox 97.2 F 67 16 160/69 H 99 10/23/19 12:00 10/23/19 18:23 10/23/19 15:13 10/23/19 18:23 10/23/19 15:13 Laboratory Data at Discharge: WBC 3.4 K/uL (4.3-10.9) L D 10/23/19 03:56 Hgb 10.3 g/dL (12.0-15.0) L 10/23/19 03:56 Hct 30.3 % (36.0-45.0) L 10/23/19 03:56 Plt Count 99 K/uL (152-406) L D 10/23/19 03:56 Sodium 138 mmol/L (136-145) 10/23/19 03:56 Potassium 5.6 mmol/L (3.5-5.1) H* 10/23/19 03:56 BUN 53 mg/dL (7-18) H 10/23/19 03:56 Creatinine 7.43 mg/dL (0.55-1.3) H* D 10/23/19 03:56 Glucose 110 mg/dL (74-106) H 10/23/19 03:56 Magnesium 2.5 mg/dL (1.8-2.4) H 10/23/19 03:56 Total Bilirubin 0.6 mg/dL (0.2-1.0) 10/22/19 10:00 AST 38 U/L (15-37) H 10/22/19 10:00 ALT 51 U/L (12-78) 10/22/19 10:00 Alkaline Phosphatase 141 U/L (45-117) H 10/22/19 10:00 Troponin I 0.46 ng/mL (0.0-0.045) H 10/23/19 03:56 <Edward Bolivar - Last Filed: 10/24/19 16:43> Patient Discharge Instructions: 1. Please follow up with her primary care doctor within 1-2 weeks to follow up this hospitalization. Please also follow up with cardiology. 2. 64-year-old female was admitted for chest pain after initial troponin was elevated at 0.44. 2nd troponin was 0.44, 3rd troponin was 0.46. Nephrology and Cardiology saw patient. Patient had recent heart catheterization in 2019 and recent echocardiogram earlier this year. Patient with extensive coronary artery disease and multiple bypass surgeries. At this time cardiology recommends medical management with adjustment of carvedilol 12.5 mg twice daily to 25 mg twice daily and addition of isosorbide mononitrate 30 mg daily. Patient doing much better today, having significantly less chest pain. Potassium was 5.6 with morning labs so she will complete 2 hr of dialysis today. At discharge patient will be expected to follow up both with primary care and cardiology in addition to nephrology for chronic hemodialysis. Strict return precautions given regards to chest pain. Cardiology consult states that if patient persists having pain with increased beta-kath dose and isosorbide that he will plan for another heart catheterization. Patient is amenable with this plan. Patient with history of hypertension, at discharge she will continue with carvedilol 25 mg p.o. twice daily, isosorbide mononitrate 30 mg p.o. once daily, nifedipine 60 mg p.o. twice daily, losartan 100 mg p.o. once daily. Further dosing of medications can be completed by primary care doctor. Patient history of diabetes mellitus type 2 patient reports that she has not been taking insulin as her sugars have been very well controlled with diet. Patient's blood sugars in the 100 is during this hospitalization. Will recommend patient continue with current therapy. Further adjust her admission medications can be completed by primary care doctor Diet: Renal Activity: Ad cory Time spent managing pt's care (in minutes): 55 <Talha Stern - Last Filed: 10/23/19 16:48> Physician Review: Patient Assessed, Agree with Above Assessment and Plan (Patient was seen and examined and findings were discussed Agree with the assessment and plan as documented by the SHREYA) <Edward Bolivar - Last Filed: 10/24/19 16:43> Home Medications: Aspirin [Aspirin EC 81 MG] 81 mg PO DAILY 10/22/19 Isosorbide Mononitrate [Isosorbide Mononitrate ER] 30 mg PO DAILY 10/22/19 Losartan Potassium [Cozaar] 100 mg PO DAILY 10/22/19 NIFEdipine [Nifedipine ER] 60 mg PO BID 10/22/19 Sucroferric Oxyhydroxide [Velphoro] 500 mg PO TIDWM 10/22/19 Butalb/Acetaminophen/Caffeine [Qvtcmy-Wlhuqtgu-Elre 50-325-40] 1 each PO Q4H #14 tablet 10/23/19 Codeine/APAP [Tylenol W/Codeine #3 tab] 1 tab PO Q6HP PRN #14 tab 10/23/19 carvediloL [Coreg*] 25 mg PO BID 6AM 6PM 30 Days #60 tab 10/23/19 New Medications: Butalb/Acetaminophen/Caffeine [Bdlgre-Nbjhimgh-Nzrs 50-325-40] 1 each PO Q4H #14 tablet carvediloL [Coreg*] 25 mg PO BID 6AM 6PM 30 Days #60 tab Codeine/APAP [Tylenol W/Codeine #3 tab] 1 tab PO Q6HP PRN #14 tab PRN Reason: Pain Followup: Papi Mi MD [ACTIVE - CAN ADMIT] -
--- NOTE | 2019-10-23 14:36 | P.CNS ---
Date of Consult: 10/23/19 Chief Complaint: NSTEMI History of Present Illness: A 63-year-old woman with PMHX of ESRD on HD MWF via Rt tunneled cath , have non mature lt forearm AVF, DM, HTN , pt presented to ER with chest pain pt had now feels better, denied , palpitation , nausea , vomiting pt didn't complete her HD yesterday due to chest pain Physical exam general: AAOX3, in mild distress Neck; Supple, No elevated JVD hear: RRR, normal S1,2 no murmur or rub Chest: CTAB, no rales or wheezes Abdomen: Soft , Nt Extremities No edema or ulcer ESRD on HD MWF dialysis today renal dose meds hyperkalmeia HD today renal diet NSTEMI cardiology on board HTN acceptable DM as pe primary pt can be discharged today from nephrology [place] once cleared by cardiology to resume HD tomorrow as an op Allergies No Known Allergies Allergy (Verified 02/18/19 04:59) Home Medications: Aspirin [Aspirin EC 81 MG] 81 mg PO DAILY 10/22/19 Carvedilol [Coreg] 12.5 mg PO BID 10/22/19 Isosorbide Mononitrate [Isosorbide Mononitrate ER] 30 mg PO DAILY 10/22/19 Losartan Potassium [Cozaar] 100 mg PO DAILY 10/22/19 NIFEdipine [Nifedipine ER] 60 mg PO BID 10/22/19 Sucroferric Oxyhydroxide [Velphoro] 500 mg PO TIDWM 10/22/19 - Past Medical/Surgical History Diabetic: Yes -: Hypertension -: NIDDM -: ESRD - MWF -: Nonfuctioning LLE fistula -: Hyperlipidemia -: GERD -: Chronic ischemic heart disease -: Hyperparathyroidism -: anemia -: iron deficiency -: Triple bypass 2016 -: Pacemaker -: Tubal ligation -: Fistula aneursym reconstruction 4 times -: Bilateral cataract surgery Psychosocial/ Personal History: Lives at home - Family History Mother Medical History: Heart disease - Social History Alcohol use: No CD- Drugs: No Caffeine use: No Place of Residence: Home Physical Examination Temp Pulse Resp BP Pulse Ox 97.2 F 60 16 145/69 H 99 10/23/19 12:00 10/23/19 13:36 10/23/19 12:00 10/23/19 13:36 10/23/19 12:00 Laboratory Data (last 24 hrs) 10/23/19 03:56: Sodium 138, Potassium 5.6 H*, BUN 53 H, Creatinine 7.43 H* D, Glucose 110 H, Magnesium 2.5 H 10/23/19 03:56: WBC 3.4 L D, Hgb 10.3 L, Hct 30.3 L, Plt Count 99 L D 10/23/19 03:56: Troponin I 0.46 H 10/22/19 20:30: Troponin I 0.44 H
[2019-10-23] MEDS: MORPHINE 2 MG/ML SYR IV PRN (14:43)
[2019-10-23] MEDS: carvediloL 25 MG TAB PO SCH ×2 (17:13→18:23)
[2019-10-23 18:23] VITALS: BP 160/69
[2019-10-23] MEDS ORDERED: ACETAMIN/CAFFEINE/BUTALB TAB PO PRN (18:31)
== END 2019-10-23 18:55 | disposition home or self-care (01) | DRG 280 ==
LOC: ER 09:32 → ERHOLD 12:05 → 2ND 13:16 → OBSVTOIN 10-23 07:06
PROVIDERS: ADMIT Family Medicine; ATTEND Family Medicine
PROC: 5A1D70Z Performance of Urinary Filtration, Intermittent, Less than 6 Hours Per Day (ICD-10-PCS; principal; 2019-10-23)
DX: I21.4 Non-ST elevation (NSTEMI) myocardial infarction (principal); N18.6 End stage renal disease; I12.0 Hypertensive chronic kidney disease with stage 5 chronic kidney disease or end stage renal disease; I25.119 Atherosclerotic heart disease of native coronary artery with unspecified angina pectoris; I25.2 Old myocardial infarction; D64.9 Anemia, unspecified; E87.5 Hyperkalemia; N25.0 Renal osteodystrophy; E11.22 Type 2 diabetes mellitus with diabetic chronic kidney disease; E78.5 Hyperlipidemia, unspecified; K21.9 Gastro-esophageal reflux disease without esophagitis; Z98.51 Tubal ligation status; Z79.82 Long term (current) use of aspirin; Z95.1 Presence of aortocoronary bypass graft; Z99.2 Dependence on renal dialysis; Z79.899 Other long term (current) drug therapy; Z95.0 Presence of cardiac pacemaker; Z11.59 Encounter for screening for other viral diseases
CPT/HCPCS: 36415; 70450; 71045; 80048; 80076; 82947; 83036; 83735; 83880; 84484; 85025; 90935; 93005; 94760; 96374; 99285; G0378; J0360; J1650; J2270; J2405; U0002

== ENCOUNTER 2020-01-21 07:36 | Inpatient (IN) | payer OTHER ==
--- OUTSIDE RECORDS SUMMARY | 2020-01-21 08:13 | XMS REPORT | Continuity of Care Document ---
:1955 Author Organization [facility] t Address [address] [place] [address] [address]. [address] [place] [address] Care Team Providers Name Role Phone Dianna Nunes MD, Bert Primary Care Physician [phone] Tomas TRUJILLO, K N Attending Clinician Santana DORSEY Attending Clinician Unavailable Twin TRUJILLO, A Attending Clinician Doctor Unassigned, Name Attending Clinician Unavailable Payers Payer Name Policy Type Policy Effective Date Expiration Date Sour ce Number MEDICAREMEDICARE PART [id number] 2014 [place] AND 00:00:00 Religion [id number] [place] [id number] 2018 Ike vásquez [id number] 2017-Present 00:00:00 Met alvarez Medicaid Problems Condition Condition Condition Status Onset Resolution Last Treating Co mments Source Name Details Category Date Date Treatment Clinician Date Hematoma Hematoma Disease Active [place] 07-20 Methodi 00:00: st 00 Acute Acute Disease Active [place] gastroente gastroente 3-20 Me thodi ritis ritis 00:00: st 00 Type 2 Type 2 Disease Active [place] diabetes diabetes 3-27 Method i mellitus mellitus 00:00: st with with 00 diabetic diabetic chronic chronic kidney kidney disease disease Pacemaker Pacemaker Disease Active [facility] fahad Methodi st Wears Wears Disease Active [place] glasses glasses Methodi st Allergies, Adverse Reactions, Alerts Allergy Allergy Status Severity Reaction(s) Onset Inactive Treating Comm ents Source Name Type Date Date Clinician Heparin Propensi Active Severe "won't P[place] ty to 724 stop Methodi adverse 00:00: bleeding" st reaction 00 s to drug Family History Family Member Diagnosis Comments Start Date Stop Date Source Natural father Diabetes [place] [facility] Natural mother Diabetes [facility] thodist Social History Social Habit Start Date Stop Date Quantity Comments Source History [facility] Alcohol Std Drinks History [facility] Alcohol Binge Sex Assigned At [facility] ethodist Tobacco use and 2018-10-27 2018-10-27 Never used [facility] ethodist exposure 00:00:00 00:00:00 Alcohol intake 2018-10-27 2018-10-27 Current [facility] thodist 00:00:00 00:00:00 non-drinker of alcohol (finding) History SDAZ 2018-06-21 2018-06-21 1 [place] [facility] Alcohol Frequency 00:00:00 00:00:00 Smoking Status Start Date Stop Date Source Never smoker [place] Method[facility] t Medications Ordered Filled Start Stop Current Ordering Indication Dosage Frequency Signature Comments Components Source Medication Medication Date Date Medication? Clinician (SIG) Name Name ergocalcife Yes 03103M Q7D Take [place] 7-25 50,000 [...] daily. st MG 24 hr 42 tablet metOLazone 2019-0 Yes TK 1 T PO Ho kathryn (ZAROXOLYN) 7-12 D Methodi 5 MG tablet 00:00: st 00 metoprolol 2019-0 Yes TK 1 T PO Ho kathryn tartrate 7-12 BID Methodi (LOPRESSOR) 00:00: st 25 mg 00 tablet aspirin 2019-0 Yes [place] (ECOTRIN) 7-10 Methodi 81 MG 00:00: st enteric 00 coated tablet furosemide 2018- Yes Take by [place] (LASIX) 40 7-10 mouth. Methodi mg tablet 00:00: st 00 hydrALAZINE 2019- Yes 1{tbl} Take 1 [place] (APRESOLINE 7-09 tablet by Met hodi ) 100 MG 00:00: mouth. st tablet 00 lactulose 2018- Yes Take by Laura on (CEPHULAC) 7-09 mouth. Methodi 10 gram 00:00: st packet 00 lanthanum 2018- Yes Take by Laura on 1,000 mg 7-09 mouth. Methodi powder in 00:00: st packet 00 NIFEdipine 2019- Yes 1{tbl} Take 1 I[place] st[place] XL 7-09 tablet by Methodsammie (PROCARDIA 00:00: mouth. st XL) 60 MG 00 24 hr tablet Procedures This patient has no known procedures. Plan of Care Planned Activity Planned Date Details Comments Source Future Scheduled 2020-08-11 Screening for [facility] thodist Test 00:00:00 malignant neoplasm of cervix (procedure) [code = 833386976] Future Scheduled 2019-11-16 BREAST CANCER [place] [facility] Test 00:00:00 SCREENING [code = BREAST CANCER SCREENING] Future Scheduled 2019-11-03 INFLUENZA VACCINE [place] [facility] 00:00:00 [code = INFLUENZA VACCINE] Future Scheduled 2007-09-05 COLONOSCOPY SCREENING [place] [facility] Test 00:00:00 [code = COLONOSCOPY SCREENING] Future Scheduled 2007-09-05 SHINGLES VACCINES [place] [facility] Test 00:00:00 (#1) [code = SHINGLES VACCINES (#1)] Future Scheduled 1967-09-05 DIABETIC FOOT EXAM [place] [facility] Test 00:00:00 [code = DIABETIC FOOT EXAM] Future Scheduled 1955 DIABETIC RETINAL EYE [place] [facility] Test 00:00:00 EXAM [code = DIABETIC RETINAL EYE EXAM] Encounters Start End Encounter Admission Attending Care Care Encounter Source Date/Time Date/Time Type Type Clinicians Facility Department ID 2018-09-18 Outpatient [facility] [id number] [facility] 08:26:04 2019-08-15 2019-08-15 Telephone [facility] [id number] 00:00:00 00:00:00 Meagan shah MULTISPEC [id number] [place] [id number] [place] [id number] AND ZACHARIAH [facility] 2018-11-22 2018-11-22 Telephone Twin [facility] [id number] 00:00:00 00:00:00 Bertrand Ivy MULTISPEC [id number] IALTY [id number] [place] [id number] AND SONI [facility] 2018-06-30 2018-06-30 Orders Doctor JINNY [id number] 00:00:00 00:00:00 Only Unassigned, [place]ED[place] [id number] [place] [facility] [id number] 2018-03-30 2018-03-30 Orders Doctor JINNY [id number] 00:00:00 00:00:00 Only Unassigned, DEEDEE [id number] [place] [facility] [id number] 2018-03-22 2018-03-22 Orders Doctor JINNY [id number] 00:00:00 00:00:00 Only Unassigned, DEEDEE [id number] [place] [facility] [id number] 2018-03-16 2018-03-16 Orders Doctor JINNY [id number] 00:00:00 00:00:00 Only Unassigned, DEEDEE [id number] [place] [facility] [id number] 2018-01-22 2018-01-22 Emergency E [facility] [id number] MH 16:17:00 16:17:00 [facility] 2017-11-24 2017-11-24 Orders Doctor JINNY [id number] 00:00:00 00:00:00 Only Unassigned, DEEDEE [id number] [place] [facility] [id number] Results This patient has no known results.
--- OUTSIDE RECORDS SUMMARY | 2020-01-21 08:13 | XMS REPORT | Clinical Summary ---
:1955 Author Organization [facility] Address [address] [place] [address] Care Team Providers Name Role Phone Unavailable Primary Care Provider Unavailable Allergies Not on File Medications Not on file Active Problems Not on file Social History Tobacco Use Types Packs/Day Years Used Date Never Assessed Sex Assigned at Date Recorded Not on file Last Filed Vital Signs Not on file Plan of Treatment Not on file Results Not on fileafter 01/20/2019 Insurance Payer Benefit Plan / Subscriber ID Effective Dates Phone Addre ss Type Group [employer] [id number] 2017-Presen MEDICARE MCD CARE t MEDICAID MEDICAID OF [id number] Effective for [facility] all dates
--- OUTSIDE RECORDS SUMMARY | 2020-01-21 08:13 | XMS REPORT | Clinical Summary ---
:1955 Author Organization [facility] Address [address] [place] [address] Care Team Providers Name Role Phone Dianna Nunes MD, Bert Primary Care Provider Allergies Active Allergy Reactions Severity Noted Date Comments Heparin High 10/25/2018 "won't stop ble eding" Medications Medication Sig Dispensed Refills Start Date End Date Status ergocalciferol (VITAMIN Take 50,000 0 Active D2) 50,000 unit capsule Units by mouth once a week. multivitamin (DAILY-LARON Take 1 tablet by 0 Active ORAL) mouth daily. doxazosin (CARDURA) 4 MG Take 4 mg by 0 Active tablet mouth 2 (two) times a day. atorvastatin (LIPITOR) Take 40 mg by 0 Active 40 MG tablet mouth daily. pantoprazole (PROTONIX) Take 40 mg by 0 Active 40 MG EC tablet mouth daily. isosorbide mononitrate Take 30 mg by 0 Active (IMDUR) 30 MG 24 hr mouth daily. tablet aspirin (ECOTRIN) 81 MG 0 10/11/2018 Active enteric coated tablet furosemide (LASIX) 40 mg Take by mouth. 0 10/11/2018 Active tablet hydrALAZINE (APRESOLINE) Take 1 tablet by 0 10/11/19 19 Active 100 MG tablet mouth. lactulose (CEPHULAC) 10 Take by mouth. 0 10/10/2018 Active gram packet lanthanum 1,000 mg Take by mouth. 0 10/10/2018 Active powder in packet metOLazone (ZAROXOLYN) 5 TK 1 T PO D 0 10/13/2018 Active MG tablet metoprolol tartrate TK 1 T PO BID 0 10/13/2018 Active (LOPRESSOR) 25 mg tablet NIFEdipine XL (PROCARDIA Take 1 tablet by 0 10/11/19 19 Active XL) 60 MG 24 hr tablet mouth. Active Problems Problem Noted Date Hematoma 07/20/2018 Acute gastroenteritis 06/21/2018 Type 2 diabetes mellitus with diabetic chronic kidney disease 06/28/2017 Pacemaker Wears glasses Encounters Date Type Specialty Care Team Description 07/16/2019 Documentation Transplant Dee Dee Dillon RN after 01/20/2019 Immunizations Name Administration Dates Next Due FLUCELVAX QUAD PF 07/05/2018 () Surgical History Surgery Date Site/Laterality Comments CORONARY ARTERY BYPASS 12/04/2015 - GRAFT 01/02/2016 PERITONEAL CATHETER 04/04/2012 - INSERTION 04/03/2013 PERITONEAL CATHETER REMOVAL 02/02/2014 - 03/03/2014 DIALYSIS FISTULA CREATION 04/04/2013 - Left Left l ower arm 04/03/2014 TUBAL LIGATION 04/04/2000 - 04/03/2001 CATARACT EXTRACTION, BILATERAL EXPLORATION, EXTREMITY, FOR 06/24/2018 - Left Proc edure: LEFT FORE COMPLICATIONS AFTER 06/25/2018 ARM EXPLORAT ION , SURGICAL PROCEDURE HEMATOMA EVAC UATION AND HEMOSTASIS; Lino geon: Garrick Hagen MD; [facility]; Service: Cardiot horacic; Laterality: Lef t; Medical devices from this surgery are in the Implants section . INCISION AND DRAINAGE, 06/26/2018 Arm Lower/Left Procedure : washout of HEMATOMA left forearm wou nd; Surgeon: Klaus Hernandez MD; L ocation: [facility] Main OR; S ervice: Vascular; Later ality: Left; Medical devices from this surgery are in the Implants section . REVISION, ARTERIOVENOUS 06/22/2018 Left Procedur e: LEFT UPPER GRAFT, WITH ANGIOGRAPHY EXTREMIT Y AV FISTULA REVISION , Tunne lled Dialysis Cathete r Placement Left IJ; Surgeon: Klaus Hernandez MD; L ocation: [facility] Main OR; S ervice: Vascular; Later ality: Left; Medical devices from this surgery are in the Implants section . INCISION AND DRAINAGE, 07/20/2018 Arm Lower/Left Procedure : DEBRIDEMENT HEMATOMA LEFT ARM, I&D OF HEMATOMA, COMPLE X CLOSURE LEFT ARM ; Surgeon: Sandy Stevens MD; Locati on: [facility] Main OR; Servic e: Plastics; Later ality: Left; ARM WOUND REPAIR / CLOSURE Left aneur ysm repair COSMETIC SURGERY Left arm s/p av nichole t CREATION, AV FISTULA, UPPER 10/26/2018 Arm Upper/Right Proc edure: RIGHT UPPER EXTREMITY, DISTAL EXTREMITY AV F ISTULA CREATION; Surge on: Klaus Denny MD; Location: [facility] Main OR; Service: Vascul ar; Laterality: Righ t; Medical History Medical History Date Comments Coronary artery disease ESRD (end stage renal disease) on dialysis (HCC) Type 2 diabetes mellitus (HCC) 2003 Hypertension Peritonitis (HCC) Anemia CHF (congestive heart failure) (HCC) Hypercholesteremia GERD (gastroesophageal reflux disease) Renal failure Heart attack (HCC) 11/2015 Pacemaker Wears glasses Immunizations up to date Exercises 3 to 4 times per week walks fo r 35 minutes, no Cp or SOB History of transfusion 2013 Family History Medical History Relation Name Comments [...] Signs Not on file Plan of Treatment Health Maintenance Due Date Last Done Comments DIABETIC RETINAL EYE EXAM 1955 DIABETIC FOOT EXAM 09/05/1967 COLONOSCOPY SCREENING 09/05/2007 SHINGLES VACCINES (#1) 09/05/2007 INFLUENZA VACCINE 11/03/2019 BREAST CANCER SCREENING 11/16/2019 11/15/2017, 04/10/2015 CERVICAL CANCER SCREENING 08/11/2020 08/11/2017 Implants Implanted Type Area Lost And Found Clerk Device Shelf Model / Identifier Expiration Serial / Date Lot Catheter Hmodial Dura-Flow Prcrv Bsc Valved Pelbl th 28cm - [id number] Central N/A: N/A ANGIODYNAMICS 06/23/2019 [id number] / Implanted: Qty: 1 on 06/22/2018 by Klaus Denny MD at [facility] [employer] / Catheters Pacemaker Pacemaker Kit Selnt Fibrin Humn Hmsts Surgy 5ml Evicel - [id number] Surgic al N/A: N/A ETHICON US-EH 06/23/2019 [id number] / Implanted: Qty: 1 on 06/22/2018 by Klaus Denny MD at [facility] Implants; / Expanders; Extenders; Surgical Wires Particle Soft-Tissue Grft Micronized For Impntn Recon 1000mg - [id number] Surgical Arm, [employer] 02/02/2020 [id number] / Implanted: Qty: 1 on 06/24/2018 by Agusto Hagen MD at [facility] Implants; Lower / Expanders; Extenders; Surgical Wires Kit Selnt Fibrin Humn [facility] Surgy 5ml Evicel - [id number] Surgic al N/A: N/A ETHICON - 06/27/2019 [id number] / Implanted: Qty: 1 on 06/26/2018 by Klaus Denny MD at [facility] Implants; / Expanders; Extenders; Surgical Wires Results Not on fileafter 01/20/2019 Insurance Payer Benefit Plan / Subscriber ID Effective Dates Phone Addre ss Type Group MEDICARE MEDICARE PART A [id number] 2014-Present [place], [place] Medicare AND B [place] [id number] 2018-[place] Qiana [place]dez Transplant Self 1955 [phone] (Home) [place] [address] Advance Directives For more information, please contact: [phone] Type Date 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
[2020-01-21] MEDS ORDERED: BENZONATATE 100 MG CAP PO ONE (08:15)
[2020-01-21 08:30] LABS: Absolute Lymphocytes (CBC) 0.7 K/uL (0.7-4.9); Basophils % 0.9 % (0-1.3); Hematocrit 28.6 % (36.0-45.0); Lymphocytes % 22.6 % (15.3-44.8); MPV 9.5 fL (7.6-11.3); RBC Red Blood Cell Count 2.98 M/uL (3.86-4.86)
[2020-01-21 08:44] LABS: Protime INR 1.03
[2020-01-21 08:51] LABS: Amylase 41 U/L (25-115); CKMB Creatine Kinase MB < 1.0 ng/mL (0.3-3.6); Creatine Phosphokinase 57 U/L (26-192); Lipase 29 U/L (73-393)
--- NOTE | 2020-01-21 08:51 | RAD REPORT ---
EXAM DESCRIPTION: Samuel Single View01/21/2020 8:45 am CLINICAL HISTORY: cough COMPARISON: 10/2019 FINDINGS: The lungs appear clear of acute infiltrate. The heart is mildly enlarged. Pacemaker leads are in place. Postsurgical changes involve the chest IMPRESSION: No acute abnormalities displayed
[2020-01-21 09:13] LABS: Albumin 2.9 g/dL (3.4-5.0); Bilirubin Direct 0.3 mg/dL (0-0.2); Bilirubin Total 0.6 mg/dL (0.2-1.0); Magnesium 2.5 mg/dL (1.8-2.4); Potassium 3.7 mmol/L (3.5-5.1); Protein, Total 8.3 g/dL (6.4-8.2); Troponin (Emerg Dept Use Only) 0.39 ng/mL (0.0-0.045)
--- NOTE | 2020-01-21 10:57 | EDPHYS ---
Physician Documentation [facility] Name: Qiana Valdez Age: 64 yrs Sex: Female : 1955 Arrival Date: 01/21/2020 Time: 07:40 Bed 8 Private MD: Wild Bustamante ED Physician Rory Connors HPI: 01/20 07:56 This 64 yrs old Female presents to ER via Unassigned with complaints of kdr Weakness, Cough. 07:57 The patient c/o generalized aches and pains and persistent cough. She has also lost her kdr sense of taste and possibly smell. She denies fever. Onset: The symptoms/episode began/occurred gradually, 1 week(s) ago. Severity of symptoms: At their worst the symptoms were mild just prior to arrival, in the emergency department the symptoms are unchanged. The patient has not experienced similar symptoms in the past. The patient has not recently seen a physician. The patient went to dialysis on Tuesday without complication. Per daughter, the left her below her dry weight - she was concerned that she might be fluid overloaded. Historical: - Allergies: 07:58 No Known Allergies; ss - PMHx: 07:58 Chronic ischemic heart disease; Diabetes - IDDM; ESRD; hyperparathyroidism; High ss Cholesterol; GERD; Hypertension; IRON DEFICIENCY ANEMIA; Myocardial infarction; DIALYSIS MWF; - PSHx: 07:58 CABG; DIALYSIS FISTULA R FOREARM; ss - Immunization history:: Adult Immunizations up to date. - Social history:: Smoking status: Patient denies any tobacco usage or history of. ROS: 08:01 Constitutional: Negative for fever, chills, and weight loss - she has had generalized kdr myalgias Eyes: Negative for injury, pain, redness, and discharge, Neck: Negative for injury, pain, and swelling, Cardiovascular: Negative for chest pain, palpitations, and edema, Abdomen/GI: Negative for abdominal pain, nausea, vomiting, diarrhea, and constipation, Back: Negative for injury and pain, : Negative for injury, bleeding, discharge, and swelling, MS/Extremity: Negative for injury and deformity, Skin: Negative for injury, rash, and discoloration, Neuro: Negative for headache, weakness, numbness, tingling, and seizure activity. Psych: Negative for depression, anxiety, suicide ideation, homicidal ideation, and hallucinations, Allergy/Immunology: Negative for hives, rash, and allergies, Endocrine: Negative for neck swelling, polydipsia, polyuria, polyphagia, and marked weight changes, Hematologic/Lymphatic: Negative for swollen nodes, abnormal bleeding, and unusual bruising. 08:01 Respiratory: Positive for cough, with no reported sputum, dyspnea on exertion, Negative for dyspnea on exertion, sputum production, wheezing. Exam: 08:03 Constitutional: This is a well developed, well nourished patient who is awake, alert, kdr and in no acute distress. Head/Face: Normocephalic, atraumatic. Eyes: Pupils equal round and reactive to light, extra-ocular motions intact. Lids and lashes normal. Conjunctiva and sclera are non-icteric and not injected. Cornea within normal limits. Periorbital areas with no swelling, redness, or edema. Neck: Trachea midline, no thyromegaly or masses palpated, and no cervical lymphadenopathy. Supple, full range of motion without nuchal rigidity, or vertebral point tenderness. No Meningismus. Chest/axilla: Normal chest wall appearance and motion. Nontender with no deformity. No lesions are appreciated. Cardiovascular: Regular rate and rhythm with a normal S1 and S2. No gallops, murmurs, or rubs. Normal PMI, no JVD. No pulse deficits. Abdomen/GI: Soft, non-tender, with normal bowel sounds. No distension or tympany. No guarding or rebound. No evidence of tenderness throughout. Back: No spinal tenderness. No costovertebral tenderness. Full range of motion. Skin: Warm, dry with normal turgor. Normal color with no rashes, no lesions, and no evidence of cellulitis. MS/ Extremity: Pulses equal, no cyanosis. Neurovascular intact. Full, normal range of motion. Neuro: Awake and alert, GCS 15, oriented to person, place, time, and situation. Cranial nerves II-XII grossly intact. Motor strength 5/5 in all extremities. Sensory grossly intact. Cerebellar exam normal. Normal gait. Psych: Awake, alert, with orientation to person, place and time. Behavior, mood, and affect are within normal limits. 08:03 Respiratory: the patient does not display signs of respiratory distress, Respirations: normal, Breath sounds: rales, rhonchi, are heard in the left posterior lower lobe, stridor, is not appreciated, wheezing: is not appreciated. 09:25 ECG was reviewed by the Attending Physician. kdr Vital Signs: 07:54 BP 127 / 58; Pulse 68; Resp 17; Temp 98.2(TE); Pulse Ox 90% on R/A; Weight 70.7 kg (M); ss Pain 4/10; 09:30 BP 107 / 53; Pulse 66; Resp 18; Pulse Ox 97% on 2 lpm NC; vg1 11:00 BP 108 / 48; Pulse 61; Resp 18; Pulse Ox 96% on 2 lpm NC; em 11:42 BP 114 / 64; Pulse 72; Resp 19; Pulse Ox 97% on 2 lpm NC; em 12:17 BP 121 / 58; Pulse 68; Resp 18; Pulse Ox 99% on 2 lpm NC; em MDM: 08:03 Data reviewed: vital signs, nurses notes, lab test result(s). Counseling: I had a kdr detailed discussion with the patient and/or guardian regarding: the historical points, exam findings, and any diagnostic results supporting the discharge/admit diagnosis, lab results, radiology results. 08:04 Counseling: I had a detailed discussion with the patient and/or guardian regarding: the kdr need for further work-up and treatment in the hospital. 10:56 Patient medically screened. [facility] 01/20 07:43 Order name: Basic Metabolic Panel; Complete Time: 09:22 [facility] 01/20 07:43 Order name: CBC with Diff; Complete Time: 09:22 [facility] 01/20 07:43 Order name: LFT's; Complete Time: 09: [facility] 01/20 07:43 Order name: Magnesium; Complete Time: 09:22 kdr 01/20 07:43 Order name: NT PRO-BNP; Complete Time: 09:22 kdr 01/20 07:43 Order name: PT-INR; Complete Time: 09:22 [facility] 01/20 07:43 Order name: Troponin (emerg Dept Use Only); Complete Time: 09:22 [facility] 01/20 07:56 Order name: Amylase, Serum; Complete Time: 09:22 [facility] 01/20 07:56 Order name: Blood Culture Adult (2) kdr 01/20 07:56 Order name: Ckmb; Complete Time: 09: [facility] 01/20 07:56 Order name: CPK; Complete Time: 09:22 kdr 01/20 07:56 Order name: Lactate; Complete Time: 09:22 kdr 01/20 07:56 Order name: Lipase; Complete Time: 09:22 kdr 01/20 07:56 Order name: Procalcitonin; Complete Time: 09:22 kdr 01/20 07:56 Order name: Ptt, Activated; Complete Time: 09:22 kdr 01/20 07:56 Order name: Urine Microscopic Only kdr 01/20 08:20 Order name: Flu; Complete Time: 10:10 em 01/20 08:20 Order name: Strep; Complete Time: 10:10 em 01/20 09:38 Order name: Throat Culture [facility] 01/20 10:17 Order name: SARS-COV-2 RT PCR; Complete Time: 10:56 [facility] 01/20 11:09 Order name: CBC with Automated Diff [facility] 01/20 11:09 Order name: CBC with Automated Diff [facility] 01/20 11:09 Order name: Comprehensive Metabolic Panel [facility] 01/20 11:09 Order name: Comprehensive Metabolic Panel [facility] 01/20 11:09 Order name: Lipid Profile [facility] 01/20 11:09 Order name: Lipid Profile [facility] 01/20 11:09 Order name: Magnesium [facility] 01/20 11:09 Order name: Magnesium [facility] 01/20 11:09 Order name: NT PRO-BNP [facility] 01/20 07:43 Order name: XRAY Chest (1 view); Complete Time: 09:22 kdr 01/20 07:43 Order name: EKG; Complete Time: 07:44 kdr 01/20 07:43 Order name: Cardiac monitoring; Complete Time: 08:32 kdr 01/20 07:43 Order name: EKG - Nurse/Tech; Complete Time: 08:55 kdr 01/20 07:43 Order name: IV Saline Lock; Complete Time: 08:32 kdr 01/20 07:43 Order name: Labs collected and sent; Complete Time: 08:32 kdr 01/20 07:43 Order name: O2 Per Protocol; Complete Time: 08:32 kdr 01/20 07:43 Order name: O2 Sat Monitoring; Complete Time: 08:01 kdr 01/20 07:56 Order name: Accucheck; Complete Time: 08:32 kdr 01/20 07:56 Order name: IV Saline Lock - Large Bore; Complete Time: 08:32 kdr 01/20 11:09 Order name: CONS Physician Consult [facility] 01/20 11:09 Order name: Renal [facility] 01/20 11:09 Order name: NT PRO-BNP [facility] 01/20 11:09 Order name: Phosphorus [facility] 01/20 11:09 Order name: Phosphorus [facility] 01/20 11:09 Order name: Protime (+INR) [facility] 01/20 11:09 Order name: Protime (+INR) [facility] 01/20 11:09 Order name: PTT, Activated Partial Thromb [facility] 01/20 11:09 Order name: PTT, Activated Partial Thromb [facility] 01/20 11:09 Order name: Troponin I [facility] 01/20 11:09 Order name: Troponin I [facility] 01/20 11:09 Order name: Troponin I [facility] 01/20 11:09 Order name: Troponin I ED[facility] EC:25 Rate is 60 beats/min. Rhythm is regular, Junctional rhythm with No ectopy. QRS [place] is kdr Normal. QRS interval is normal. QT interval is normal. Clinical impression: Junctional rhythm w/ non-specfic change. Administered Medications: 08:05 Drug: Tessalon Perle 200 mg Route: PO; em 08:58 Follow up: Response: No adverse reaction vg1 11:22 Drug: Decadron - Dexamethasone 6 mg Route: IVP; Site: left antecubital; em 12:21 Follow up: Response: No adverse reaction em Disposition: 01/21/20 10:56 Hospitalization ordered by Ledy Argueta for Observation. Preliminary diagnosis are End stage renal disease, Coronavirus infection, unspecified, Hypoxemia, Myalgia. - Bed requested for Intensive Care Unit. - Status is Observation. em - Condition is Fair. - Problem is new. - Symptoms have improved. Signatures: Dispatcher [employer] [facility] Sarah Deleon Kevin, MD MD kdr Suleiman Snyder RN RN em Katt Olguin RN RN ss Garcia, Victoria RN vg1 Corrections: (The following items were deleted from the chart) 09:26 07:57 CORONAVIRUS+MR.LAB.BRZ ordered. ED[facility] ED[facility] 11:00 10:56 Hospitalization Ordered by Ledy Argueta MD for Observation. Preliminary kdr diagnosis is End stage renal disease. Bed requested for Telemetry/MedSurg (observation). Status is Observation. Condition is Fair. Problem is new. Symptoms have improved. kdr 11:51 11:00 01/21/2020 10:56 Hospitalization Ordered by Ledy Argueta MD for Observation. bd Preliminary diagnosis is End stage renal disease; Coronavirus infection, unspecified; Hypoxemia; Myalgia. Bed requested for Telemetry/MedSurg (observation). Status is Observation. Condition is Fair. Problem is new. Symptoms have improved. kdr 12:21 11:51 01/21/2020 10:56 Hospitalization Ordered by Ledy Argueta MD for Observation. em Preliminary diagnosis is End stage renal disease; Coronavirus infection, unspecified; Hypoxemia; Myalgia. Bed requested for Intensive Care Unit. Status is Observation. Condition is Fair. Problem is new. Symptoms have improved. bd
--- NOTE | 2020-01-21 10:57 | ER ---
Nurse's Notes [facility] Name: Qiana Valdez Age: 64 yrs Sex: Female : 1955 Arrival Date: 01/21/2020 Time: 07:40 Bed 8 Private MD: Wild Bustamante Diagnosis: End stage renal disease;Coronavirus infection, unspecified;Hypoxemia;Myalgia Presentation: 01/20 07:54 Chief complaint: Patient states: cough and shortness of breath x 3 days. Dizziness, ss nausea, body aches and fatigue that began 3 days ago. Denies fever. Coronavirus screen: cough unrelated to allergies, fatigue, muscle pain, nausea, shortness of breath, Client presents with at least one sign or symptom that may indicate coronavirus-19. Standard/surgical mask placed on the client. Provider contacted for isolation considerations. Ebola Screen: Patient denies exposure to infectious person. Patient denies travel to an Ebola-affected area in the 21 days before illness onset. Initial Sepsis Screen: Does the patient meet any 2 criteria? No. Patient's initial sepsis screen is negative. Does the patient have a suspected source of infection? No. Patient's initial sepsis screen is negative. Risk Assessment: Do you want to hurt yourself or someone else? Patient reports no desire to harm self or others. Onset of symptoms was January 17, 2020. 07:54 Method Of Arrival: Wheelchair ss 07:54 Acuity: SIXTO 3 ss Historical: - Allergies: 07:58 No Known Allergies; ss - PMHx: 07:58 Chronic ischemic heart disease; Diabetes - IDDM; ESRD; hyperparathyroidism; High ss Cholesterol; GERD; Hypertension; IRON DEFICIENCY ANEMIA; Myocardial infarction; DIALYSIS MWF; - PSHx: 07:58 CABG; DIALYSIS FISTULA R FOREARM; ss - Immunization history:: Adult Immunizations up to date. - Social history:: Smoking status: Patient denies any tobacco usage or history of. Screenin:58 Abuse screen: Denies threats or abuse. Denies injuries from another. Nutritional ss screening: No deficits noted. Tuberculosis screening: Never had TB. Assessment: 08:05 General: Appears in no apparent distress. comfortable, Behavior is calm, cooperative. em Pain: Pain currently is 4 out of 10 on a pain scale. Neuro: Level of Consciousness is awake, alert, obeys commands, Oriented to person, place, time, situation, Appropriate for age. Cardiovascular: Capillary refill < 3 seconds Patient's skin is warm and dry. Respiratory: Reports shortness of breath at rest cough that is dry, Airway is patent Respiratory effort is even, unlabored, Respiratory pattern is regular, symmetrical. GI: Patient currently denies nausea, vomiting. Derm: Skin is intact, is healthy with good turgor, Skin is pink, warm \T\ dry. Musculoskeletal: Capillary refill < 3 seconds, Range of motion: intact in all extremities. 09:30 Reassessment: Patient appears in no apparent distress at this time. Patient and/or em family updated on plan of care and expected duration. Pain level reassessed. Patient is alert, oriented x 3, equal unlabored respirations, skin warm/dry/pink. 10:15 Reassessment: pt is covid pos, pending admission orders. em 11:32 Reassessment: Patient appears in no apparent distress at this time. Patient and/or em family updated on plan of care and expected duration. Pain level reassessed. Patient is alert, oriented x 3, equal unlabored respirations, skin warm/dry/pink. 12:17 Reassessment: Patient appears in no apparent distress at this time. Patient and/or em family updated on plan of care and expected duration. Pain level reassessed. Patient is alert, oriented x 3, equal unlabored respirations, skin warm/dry/pink. Vital Signs: 07:54 BP 127 / 58; Pulse 68; Resp 17; Temp 98.2(TE); Pulse Ox 90% on R/A; Weight 70.7 kg (M); ss Pain 4/10; 09:30 BP 107 / 53; Pulse 66; Resp 18; Pulse Ox 97% on 2 lpm NC; vg1 11:00 BP 108 / 48; Pulse 61; Resp 18; Pulse Ox 96% on 2 lpm NC; em 11:42 BP 114 / 64; Pulse 72; Resp 19; Pulse Ox 97% on 2 lpm NC; em 12:17 BP 121 / 58; Pulse 68; Resp 18; Pulse Ox 99% on 2 lpm NC; em ED Course: 07:40 Patient arrived in ED. mr 07:40 Wild Bustamante MD is Private Physician. mr 07:43 Rory Connors MD is Attending Physician. kdr 07:43 Suleiman Snyder, RN is Primary Nurse. em 07:57 Triage completed. ss 07:58 Arm band placed on right wrist. ss 07:58 Patient has correct armband on for positive identification. Bed in low position. Call ss light in reach. technical publications writer on. Pulse ox on. NIBP on. 07:58 Oxygen administration via nasal cannula \T\ 2L/min Response to oxygen therapy: symptoms ss improved. 08:15 Initial lab(s) drawn, by me, sent to lab. Inserted saline lock: 20 gauge in left em antecubital area, using aseptic technique. Blood collected. 08:45 XRAY Chest (1 view) In Process Unspecified. EDMS 10:54 Ledy Argueta MD is Hospitalizing Provider. kdr 12:16 No provider procedures requiring assistance completed. Patient admitted, IV remains in em place. Administered Medications: 08:05 Drug: Tessalon Perle 200 mg Route: PO; em 08:58 Follow up: Response: No adverse reaction vg1 11:22 Drug: Decadron - Dexamethasone 6 mg Route: IVP; Site: left antecubital; em 12:21 Follow up: Response: No adverse reaction em Outcome: 10:56 Decision to Hospitalize by Provider. kdr 12:16 Admitted to ICU accompanied by tech, via stretcher, room ICU 7, with oxygen, with em chart, Report called to SUNITA Dan 12:16 Condition: good 12:16 Instructed on the need for admit, Demonstrated understanding of instructions. 12:21 Patient left the ED. em Signatures: Dispatcher [employer] [facility] Rory Connors MD MD [facility] Suleiman Snyder, RN RN em Katt Olguin RN RN ss Garcia, Victoria, RN RN vg1 Corrections: (The following items were deleted from the chart) 11:42 11:00 BP 108 / 48; Pulse 61bpm; Resp 18bpm; Pulse Ox 96% RA; em em 12:18 12:17 BP 121 / 58; Pulse 68bpm; Resp 18bpm; Pulse Ox 99% RA; em em
[2020-01-21] MEDS ORDERED: ONDANSETRON 4 MG/2 ML VIAL IV PRN (11:03)
[2020-01-21] MEDS ORDERED: dexAMETHasone 4 MG/ML VIAL ONE (11:31)
[2020-01-21] MEDS: AZITHROMYCIN IV 500 MG in NA CHLORIDE 0.9% 250 ML IVPB SCH (13:21)
[2020-01-21] MEDS: ACETAMINOPHEN 500 MG TAB PO PRN (14:29)
[2020-01-21] MEDS ORDERED: NA CHLORIDE 0.9% 500 ML ONE (15:48)
[2020-01-21] MEDS ORDERED: NA CHLORIDE 0.9% 300 ML IV SCH (16:00)
[2020-01-21] MEDS: NA CHLORIDE 0.9% 1,000 ML IV SCH (17:04)
[2020-01-21] MEDS: TRAMADOL HCL 50 MG TAB PO PRN (20:24)
[2020-01-21] MEDS: HEPARIN 5000 UNIT/ML 1 ML VIAL SQ SCH (20:24)
[2020-01-21] MEDS ORDERED: HYDROMORPHONE HCL 1 MG/ML INJ IV ONE (21:24)
[2020-01-22] MEDS: TRAMADOL HCL 50 MG TAB PO PRN ×2 (01:40→07:39)
[2020-01-22] MEDS: NA CHLORIDE 0.9% 1,000 ML IV SCH (05:12)
[2020-01-22 05:34] LABS: Absolute Lymphocytes (CBC) 0.4 K/uL (0.7-4.9); Basophils % 0.5 % (0-1.3); Hematocrit 28.2 % (36.0-45.0); Lymphocytes % 27.8 % (15.3-44.8); MPV 10.6 fL (7.6-11.3); RBC Red Blood Cell Count 2.93 M/uL (3.86-4.86)
[2020-01-22 06:08] LABS: Protime INR 1.02
[2020-01-22 06:11] LABS: Albumin 2.6 g/dL (3.4-5.0); Bilirubin Total 0.4 mg/dL (0.2-1.0); C-Reactive Protein 31.9 mg/L (<3.00); Ferritin 1521.2 ng/mL (8-388); Magnesium 2.4 mg/dL (1.8-2.4); Phosphorus 6.2 mg/dL (2.5-4.9); Potassium 4.2 mmol/L (3.5-5.1); Protein, Total 8.2 g/dL (6.4-8.2); Troponin I 0.34 ng/mL (0.0-0.045)
[2020-01-22 06:41] LABS: White Blood Cell Scan OK (OK)
[2020-01-22 06:43] LABS: Blood Morphology Comment NOT SEEN (NOT SEEN); Platelet Estimate DECR
--- NOTE | 2020-01-22 07:38 | P.HP ---
Certification for Inpatient Patient admitted to: Inpatient With expected LOS: >2 Midnights Patient will require the following post-hospital care: None Practitioner: I am a practitioner with admitting privileges, knowledge of patient current condition, hospital course, and medical plan of care. Services: Services provided to patient in accordance with Admission requirements found in Title 42 Section 412.3 of the Code of Federal Regulations Patient History Date of Service: 01/21/20 Reason for admission: Shortness of breath/hypotension History of Present Illness: Patient is a 64-year-old female with a history of end-stage renal disease who presents to the hospital with difficulty breathing. She was also found to be slightly hypotensive. Patient was having persistent coughing and congestion. Patient decided to come into the emergency room for further evaluation. In the emergency room, patient was slightly hypotensive. Patient was also hypoxic with room air saturations of 88%. Patient was started on nebs and MICU. Patient was found to have COVID-19 pneumonia. Patient be admitted to the hospital for further evaluation. Nephrology consultation for hemodialysis. Start on IV steroids as well. Repeat chest x-ray in 48 hr to see if there is improvement. Monitor patient hemodynamically. At this time patient would need inpatient admission for further evaluation. Allergies No Known Allergies Allergy (Verified 01/21/20 12:48) Home Medications: Aspirin [Aspirin EC 81 MG] 81 mg PO DAILY 10/22/19 Losartan Potassium [Cozaar] 100 mg PO BID 10/22/19 NIFEdipine [Nifedipine ER] 60 mg PO BID 10/22/19 carvediloL [Coreg*] 25 mg PO BID 6AM 6PM 30 Days #60 tab 10/23/19 Atorvastatin Calcium [Lipitor] 80 mg PO BEDTIME 01/21/20 Calcium Carbonate [Tums Regular] 500 mg PO TID 01/21/20 Ciprofloxacin HCl [Cipro 250 MG Tablet*] 250 mg PO BID 01/21/20 Clopidogrel Bisulfate [Plavix*] 75 mg PO DAILY 01/21/20 Hydralazine HCl 50 mg PO BID 01/21/20 Hydralazine [Apresoline] 50 mg PO BID 01/21/20 Insulin Aspart [Novolog] 12 unit SQ TIDWM 01/21/20 Insulin Glargine Human [Lantus] 12 unit SQ BEDTIME 01/21/20 Lactulose 30 gm PO DAILY PRN 01/21/20 Metoclopramide [Reglan] 5 mg PO TIDWM 01/21/20 Metoclopramide [Reglan] 5 mg PO TIDWM 01/21/20 Pantoprazole [Protonix Tab] 40 mg PO DAILY 01/21/20 Sennosides/Docusate Sodium [Senexon-S 50-8.6 mg Tablet] 1 each PO BID 01/21/20 Sucroferric Oxyhydroxide [Velphoro] 500 mg PO 5XD 01/21/20 Vit B Comp C/Folic Acid/Vit D3 [Dialyvite 800 Plus D Wafer] 1 each PO DAILY 01/21/20 Vitamin E 400 unit PO DAILY 01/21/20 - Past Medical/Surgical History Has patient received pneumonia vaccine in the past: Yes Diabetic: Yes -: Hypertension -: NIDDM -: ESRD - MWF -: Nonfuctioning LLE fistula -: Hyperlipidemia -: GERD -: Chronic ischemic heart disease -: Hyperparathyroidism -: anemia -: iron deficiency -: COVID-19 01/21/2020 -: Triple bypass 2016 -: Pacemaker -: Tubal ligation -: Fistula aneursym reconstruction 4 times -: Bilateral cataract surgery Psychosocial/ Personal History: Lives at home - Family History Mother Medical History: Heart disease - Social History Smoking Status: Never smoker Alcohol use: No CD- Drugs: No Caffeine use: No Place of Residence: Home Review of Systems 10-point ROS is otherwise unremarkable Physical Examination - Vital Signs Temperature: 96.7 F Blood Pressure: 149/59 Pulse: 60 Respirations: 12 Pulse Ox (%): 94 - Physical Exam General: Alert, In no apparent distress, Oriented x3 HEENT: Atraumatic, PERRLA, Mucous membr. moist/pink, EOMI, Sclerae nonicteric Neck: Supple, 2+ carotid pulse no bruit, No LAD, Without JVD or thyroid abnormality Respiratory: Diminished, Crackles/rales, Expiratory wheezes Cardiovascular: Regular rate/rhythm, Normal S1 S2, No murmurs Gastrointestinal: Normal bowel sounds, Soft and benign, Non-distended, No tenderness Musculoskeletal: No clubbing, No swelling, No tenderness Integumentary: No rashes Neurological: Normal gait, Normal speech, Normal strength at 5/5 x4 extr, Normal tone, Sensation intact, Cranial nerves 3-12 intact, Normal affect Lymphatics: No axilla or inguinal lymphadenopathy - Studies Laboratory Data (last 24 hrs) 01/21/20 08:15: APTT 34.1 01/21/20 08:15: Amylase 41, Lipase 29 L 01/21/20 08:15: PT 12.2, INR 1.03 01/21/20 08:15: WBC 3.0 L, Hgb 9.5 L, Hct 28.6 L, Plt Count 108 L 01/21/20 08:15: Sodium 133 L, Potassium 3.7, BUN 38 H, Creatinine 8.91 H*, Glucose 97, Magnesium 2.5 H, Total Bilirubin 0.6, AST 29, ALT 21, Alkaline Phosphatase 107 Microbiology Data (last 24 hrs): 01/21/20 08:27 Nasopharnyx Influenza Type A Antigen Screen - Final 01/21/20 08:27 Nasopharnyx Influenza Type B Antigen Screen - Final 01/21/20 08:27 Throat Group A Streptococcus Rapid Screen - Final Assessment & Plan - Problems (Diagnosis) (1) Pneumonia due to COVID-19 virus Current Visit: Yes Status: Acute (2) History of hypertension Current Visit: Yes Status: Acute (3) End-stage renal disease on hemodialysis Current Visit: No Status: Chronic (4) Type 2 diabetes mellitus Current Visit: No Status: Chronic Qualifiers: - Plan 1. Continue with IV antibiotics 2. COVID-19 pneumonia 3. Repeat chest x-ray in 48 hrs if persistent hypoxemia 4. O2 per protocol 5. Pulmonary consultation if symptoms progressively get worse 6. Continue with albuterol inhaler therapy; maximus IV steroids as hypoxemia worsens 7. Nephrology consultation for hemodialysis 8. Monitor volume status 9. Monitor inflammatory markers labs including D-dimer, ferritin, and CRP and LFTs 10. GI and DVT prophylaxis Discharge Plan: Home Plan to discharge in: Greater than 2 days - Advance Directives Does patient have a Living Will: No Does patient have a Durable POA for Healthcare: No - Code Status/Comfort Care Code Status Assessed: Yes Code Status: Full Code Critical Care: No Time Spent Managing PTS Care (In Minutes): 45
[2020-01-22] MEDS: HEPARIN 5000 UNIT/ML 1 ML VIAL SQ SCH ×2 (07:40→19:53)
--- NOTE | 2020-01-22 08:59 | CON ---
Date of Consultation: 01/21/2020 Chief Complaint: End-stage renal disease, on dialysis. History Of Present Illness: The patient presented to dialysis and referred to emergency room for upper respiratory infection, generalized weakness. The patient was complaining of nausea, vomiting, and progressively worse weakness and fatigue. She had workup done for upper respiratory infection, was found to have COVID infection, and is admitted to ICU. Dialysis was scheduled in the hospital, although the patient developed hypotension and was started on IV fluids for blood pressure support as well as she wants to have pressors started. Electrolytes within normal limits and the patient does not have volume overload. Dialysis will be rescheduled for tomorrow. Review of Systems: The patient is lethargic, cannot provide review of systems. Past Medical History: Pacemaker placement, tubal ligation, fistula reconstruction and fistula creation, bilateral cataract surgery, hypertension, hypertensive heart and kidney disease, diabetes mellitus, hyperlipidemia, GERD, chronic ischemic heart disease, hyperparathyroidism, iron deficiency anemia, and CKD. Social History: Denies tobacco, alcohol, or illicit drugs. Family History: No kidney disease in the family. Physical Examination: Defer to the hospitalist. Laboratory Work: Hemoglobin 9.5, WBC 3.0, platelet count 108,000. Chemistry showed sodium 133, potassium 3.7, chloride 98, CO2 23, BUN 38, creatinine 8.91, calcium 7.5, magnesium 2.5, AST 29, ALT 21. CK is 57, troponin 0.39. Chest x- ray did not show active disease. Impression: 1. End-stage renal disease. Next dialysis tomorrow. 2. Hypotension. Continue IV fluids and trying pressors as needed. 3. COVID infection per primary team. 4. Hypertension. Recommend to check blood culture to screen for sepsis and culture were obtained and pending. 5. Anemia. Continue to monitor hemoglobin level. Adjust MELA. 6. Renal osteodystrophy. Continue renal diet and binders. EB/MODL Voice ID: [id number] Report ID: [id number] SHRAVAN
[2020-01-22] MEDS: MORPHINE 2 MG/ML SYR IV PRN ×2 (09:01→15:13)
[2020-01-22] MEDS: AZITHROMYCIN IV 500 MG in NA CHLORIDE 0.9% 250 ML IVPB SCH (09:39)
--- NOTE | 2020-01-22 10:02 | P.PN ---
Subjective Date of Service: 01/22/20 Chief Complaint: Shortness of breath/hypotension Subjective Pt with ESRD, Covid 19 , admitted for weakness and hypoxia Bp was low yesterday Today dialysis deferred yesterday due to hypotension , will do dialysis today as BP improved monitor WBC Physical exam general: AAOX3, in mild distress Neck; Supple, No elevated JVD hear: RRR, normal S1,2 no murmur or rub Chest: B/l basal rales Abdomen: Soft , Nt Extremities No edema or ulcer A/P End-stage renal disease on HD MWF HD today and then tomorrow renal dose meds Anemia of chronic disease will resume epogen HTN Bp was low yesterday today slightly elevated will cont to hold BP meds COVID 19 pneumonia now off oxygen cont management as per primary team will start on Abx Physical Examination - Vital Signs Temperature: 96.7 F Blood Pressure: 149/59 Pulse: 60 Respirations: 13 Pulse Ox (%): 91 - Studies Microbiology Data (last 24 hrs): 01/21/20 08:27 Nasopharnyx Influenza Type A Antigen Screen - Final 01/21/20 08:27 Nasopharnyx Influenza Type B Antigen Screen - Final 01/21/20 08:27 Throat Group A Streptococcus Rapid Screen - Final
[2020-01-22] MEDS ORDERED: D50W 25 GM/50 ML SYRINGE/VIAL IV PRN (14:36)
[2020-01-22] MEDS ORDERED: GLUCAGON 1 MG/VIAL IM PRN (14:36)
[2020-01-22] MEDS: ACETAMINOPHEN 500 MG TAB PO PRN (15:13)
[2020-01-22] MEDS ORDERED: MORPHINE 2 MG/ML SYR IV ONE (16:00)
[2020-01-22] MEDS ORDERED: cloNIDine HCL 0.1 MG TAB PO ONE (16:00)
[2020-01-22] MEDS: METOCLOPRAMIDE 5 MG TAB PO SCH (16:06)
--- NOTE | 2020-01-22 16:11 | EKG ---
Test Date: 2020-01-21 Test Time: 08:47:16 Management Developer: EDY MEASUREMENT RESULTS: Intervals: Rate: 60 MS: QRSD: 102 QT: 490 QTc: 490 [place]: P: MS: QRS: 7 T: 120 INTERPRETIVE STATEMENTS: Junctional rhythm Minimal voltage criteria for LVH, may be normal variant Nonspecific ST and T wave abnormality Prolonged QT Abnormal ECG Compared to ECG 10/22/2019 09:48:17 Junctional rhythm now present Left ventricular hypertrophy now present Sinus rhythm no longer present Possible ischemia no longer present ST (T wave) deviation still present Electronically Signed On 01-22-20 16:08:27 CDT by Papi Mi
[2020-01-22] MEDS: carvediloL 25 MG TAB PO SCH (18:35)
[2020-01-22] MEDS: ATORVASTATIN 80 MG TAB PO SCH (19:53)
[2020-01-22] MEDS: INSULIN GLARGINE 100 UNITS/ML SQ SCH (19:54)
[2020-01-22] MEDS: HYDROCODONE/APAP 7.5/325 MG TAB PO PRN (19:55)
[2020-01-22] MEDS: NIFEDIPINE XL 60 MG TABLET PO SCH (22:49)
[2020-01-22] MEDS: EPOETIN 4,000 UNIT/ML VIAL IV SCH (23:10)
[2020-01-22] MEDS ORDERED: LOPERAMIDE HCL 2 MG CAPSULE PO STA (23:44)
[2020-01-23] MEDS: MORPHINE 2 MG/ML SYR IV PRN (01:34)
[2020-01-23] MEDS ORDERED: HYDRALAZINE HCL 20 MG/ML VIAL IV ONE (01:51)
[2020-01-23 05:11] LABS: Absolute Lymphocytes (CBC) 0.6 K/uL (0.7-4.9); Basophils % 0.2 % (0-1.3); Hematocrit 30.4 % (36.0-45.0); Lymphocytes % 11.3 % (15.3-44.8); RBC Red Blood Cell Count 3.23 M/uL (3.86-4.86)
[2020-01-23] MEDS: carvediloL 25 MG TAB PO SCH ×2 (05:14→17:05)
[2020-01-23 05:25] LABS: Albumin 2.7 g/dL (3.4-5.0); Bilirubin Total 0.5 mg/dL (0.2-1.0); Phosphorus 2.8 mg/dL (2.5-4.9); Potassium 3.4 mmol/L (3.5-5.1); Protein, Total 8.2 g/dL (6.4-8.2)
[2020-01-23] MEDS: METOCLOPRAMIDE 5 MG TAB PO SCH ×3 (08:04→17:05)
[2020-01-23] MEDS: NIFEDIPINE XL 60 MG TABLET PO SCH ×2 (08:04→21:00)
[2020-01-23] MEDS: ASPIRIN EC 81 MG TAB PO SCH (08:05)
[2020-01-23] MEDS: AZITHROMYCIN IV 500 MG in NA CHLORIDE 0.9% 250 ML IVPB SCH (08:05)
[2020-01-23] MEDS: HEPARIN 5000 UNIT/ML 1 ML VIAL SQ SCH ×2 (08:05→19:59)
[2020-01-23] MEDS: CLOPIDOGREL 75 MG TABLET PO SCH (08:05)
[2020-01-23] MEDS: ACETAMINOPHEN 500 MG TAB PO PRN (08:05)
--- NOTE | 2020-01-23 08:50 | P.PN ---
Subjective Date of Service: 01/22/20 Hemodynamically patient has improved. Blood pressure is more stable. We will need to adjust her BP meds that she takes at home. Respiratory status is still not significantly improved. Still getting short of breath from walking from bed to the bedside commode. However, she is remaining oxygenating with sats in the 92-95%. Requiring minimal O2 support at this time. Repeat chest x-ray and labs in 24-48 hr. Patient is scheduled for hemodialysis later today as well. Anticipate discharge over the next 48-72 hrs if she continues to improve. Review of Systems 10-point ROS is otherwise unremarkable Physical Examination - Vital Signs Temperature: 100.4 F Blood Pressure: 150/51 Pulse: 69 Respirations: 21 Pulse Ox (%): 90 - Physical Exam General: Alert, In no apparent distress, Oriented x3 Respiratory: Diminished, Rhonchi/gurgles Cardiovascular: Regular rate/rhythm, Normal S1 S2, No murmurs Gastrointestinal: Normal bowel sounds, Soft and benign, Non-distended, No tenderness Musculoskeletal: No clubbing, No swelling, No tenderness Integumentary: No rashes Neurological: Normal tone, Sensation intact, Cranial nerves 3-12 intact - Studies Microbiology Data (last 24 hrs): 01/21/20 08:27 Throat Culture & Sensitivity - Final NORMAL UPPER RESPIRATORY HARI GROWN. Medications List Reviewed: Yes Assessment & Plan - Problems (Diagnosis) (1) Pneumonia due to COVID-19 virus Status: Acute (2) History of hypertension Status: Acute (3) End-stage renal disease on hemodialysis Status: Chronic (4) Type 2 diabetes mellitus Status: Chronic Qualifiers: - Plan Continue with plan of care as mentioned below 1. Continue with IV antibiotics; blood pressure has improved 2. COVID-19 pneumonia; continue deep inspirations and will use incentive spirometry if she started becoming hypoxic 3. Repeat chest x-ray in 48 hrs if persistent hypoxemia 4. O2 per protocol; check room air O2 sats in the morning 5. Pulmonary consultation if symptoms progressively get worse 6. Continue with albuterol inhaler therapy; maximus IV steroids as hypoxemia worsens 7. Nephrology consultation for hemodialysis 8. Monitor volume status; hemodialysis today 9. Monitor inflammatory markers labs including D-dimer, ferritin, and CRP and LFTs in 48 hrs 10. GI and DVT prophylaxis Discharge Plan: Home Plan to discharge in: Greater than 2 days - Advance Directives Does patient have a Living Will: No Does patient have a Durable POA for Healthcare: No - Code Status/Comfort Care Code Status: Full Code Critical Care: No Time Spent Managing PTS Care (In Minutes): 35
--- NOTE | 2020-01-23 12:18 | PN ---
Date of Progress Note: 01/23/2020 Subjective: The patient admitted with COVID pneumonia. The patient had over volume. The patient was dialyzed yesterday. We managed to remove 2.3 L. The patient negative of 1800, still on oxygen. Physical Examination: Vital Signs: Blood pressure 150/51, pulse of 69, T-max 100.4. Chest: Crackles bilateral. Heart: S1, S2. Regular. Abdomen: Soft, nontender. Extremities: No edema. Neurologic: Alert. No focal. Laboratory Data: WBC 5.1, H and H 10.6/30.4. Sodium 134, potassium 3.4, bicarb 26, BUN 30, creatinine 6.1, calcium 7.6, phosphorus 2.9, magnesium 2. Current Medications: The patient on include; 1. Azithromycin. 2. Aspirin. 3. Plavix. 4. Epogen. 5. Clonidine 0.2. 6. Carvedilol 25. 7. Nifedipine 60 b.i.d. 8. Loperamide. 9. Zofran. Assessment And Plan: 1. End-stage renal disease, over volume. I am going to do sequential today to establish better volume control for the patient. The patient will be monitored. 2. Hypertension, controlled, optimal. We will utilize the blood pressure to establish better volume control. 3. Renal artery stenosis status post angioplasty. Continue current treatment. 4. COVID pneumonia, stable. We will follow up with Pulmonary. 5. Respiratory failure, compliance secondary to over volume/COVID pneumonia. We will try to establish better volume control with the dialysis. 6. Diabetes as by primary. 7. Hypokalemia. The patient is going to be dialyzed on high potassium bath. Time spent Corordent the care discussing the case with the patient Family member (face to face) and staff member / other consultant teacher and placing order 35 min LISETH/EVAN Voice ID: [id number] Report ID: [id number] SHRAVAN
[2020-01-23] MEDS: ATORVASTATIN 80 MG TAB PO SCH (19:59)
[2020-01-23] MEDS: INSULIN GLARGINE 100 UNITS/ML SQ SCH (19:59)
[2020-01-23] MEDS: HYDROCODONE/APAP 7.5/325 MG TAB PO PRN (20:42)
[2020-01-24] MEDS: HYDROCODONE/APAP 7.5/325 MG TAB PO PRN ×2 (04:17→18:44)
[2020-01-24 05:15] LABS: Absolute Lymphocytes (CBC) 0.7 K/uL (0.7-4.9); Basophils % 0.9 % (0-1.3); Hematocrit 30.7 % (36.0-45.0); Lymphocytes % 20.5 % (15.3-44.8); MPV 9.7 fL (7.6-11.3); RBC Red Blood Cell Count 3.24 M/uL (3.86-4.86)
[2020-01-24] MEDS: carvediloL 25 MG TAB PO SCH (05:37)
[2020-01-24 05:42] LABS: Albumin 2.7 g/dL (3.4-5.0); Bilirubin Total 0.6 mg/dL (0.2-1.0); C-Reactive Protein 50.6 mg/L (<3.00); Magnesium 2.2 mg/dL (1.8-2.4); Phosphorus 3.2 mg/dL (2.5-4.9)
[2020-01-24 05:45] LABS: Potassium 2.9 mmol/L (3.5-5.1)
--- NOTE | 2020-01-24 07:12 | P.PN ---
Subjective Date of Service: 01/23/20 Patient continuing to do better. Feels much better on ambulation. Not getting as short of breath. Check room air O2 saturations in the morning. Anticipate discharge home in 24-48 hr. Review of Systems 10-point ROS is otherwise unremarkable Physical Examination - Vital Signs Temperature: 96.8 F Blood Pressure: 136/58 Pulse: 62 Respirations: 15 Pulse Ox (%): 97 - Physical Exam General: Alert, In no apparent distress, Oriented x3, Other HEENT: Atraumatic, PERRLA, EOMI Neck: Supple, JVD not distended Respiratory: Clear to auscultation bilaterally, Normal air movement Cardiovascular: Regular rate/rhythm, Normal S1 S2, No murmurs Gastrointestinal: Normal bowel sounds, Soft and benign, Non-distended, No tenderness Musculoskeletal: No clubbing, No swelling, No tenderness Neurological: Sensation intact, Cranial nerves 3-12 intact, Other (Patient with generalized weakness.) - Studies Medications List Reviewed: Yes Assessment & Plan - Problems (Diagnosis) (1) Pneumonia due to COVID-19 virus Current Visit: Yes Status: Acute (2) History of hypertension Current Visit: Yes Status: Acute (3) End-stage renal disease on hemodialysis Current Visit: No Status: Chronic (4) Type 2 diabetes mellitus Current Visit: No Status: Chronic Qualifiers: - Plan Continue with plan of care as mentioned below 1. Continue with IV antibiotics; blood pressure has improved; hemodynamically doing much better. Resume some her blood pressure medications at this time since not hypotensive any longer. 2. COVID-19 pneumonia; will check room her oxygen saturations in a.m.. Arrange for home oxygen as needed. 3. Repeat chest x-ray in morning 4. Hemodialysis per Nephrology 5. Monitor inflammatory markers in a.m. 6. GI and DVT prophylaxis Discharge Plan: Home Plan to discharge in: Greater than 2 days - Advance Directives Does patient have a Living Will: No Does patient have a Durable POA for Healthcare: No - Code Status/Comfort Care Code Status: Full Code Critical Care: No Time Spent Managing PTS Care (In Minutes): 35
[2020-01-24] MEDS: CLOPIDOGREL 75 MG TABLET PO SCH (07:42)
[2020-01-24] MEDS: METOCLOPRAMIDE 5 MG TAB PO SCH ×3 (07:42→16:00)
[2020-01-24] MEDS: ASPIRIN EC 81 MG TAB PO SCH (07:42)
[2020-01-24] MEDS: NIFEDIPINE XL 60 MG TABLET PO SCH ×2 (07:42→21:58)
[2020-01-24] MEDS: HEPARIN 5000 UNIT/ML 1 ML VIAL SQ SCH ×2 (07:43→21:58)
--- NOTE | 2020-01-24 07:48 | RAD REPORT ---
EXAM DESCRIPTION: Samuel Single View01/24/2020 5:34 am CLINICAL HISTORY: Chest pain COMPARISON: January 21, 2020 FINDINGS: The lungs appear clear of acute infiltrate. The heart is mildly enlarged. Pacemaker leads are in place. Postsurgical changes involve chest IMPRESSION: No acute abnormalities displayed
[2020-01-24] MEDS: AZITHROMYCIN IV 500 MG in NA CHLORIDE 0.9% 250 ML IVPB SCH (08:00)
--- NOTE | 2020-01-24 11:49 | PN ---
Date of Progress Note: 01/24/2020 Subjective: Patient was admitted with COVID pneumonia, respiratory failure, over volume. The patient is being dialyzed on a daily basis. The patient was dialyzed yesterday. We managed to remove 1200. The patient is still feeling shortness of breath. Objective: Vital Signs: Blood pressure 130/55, pulse of 60, afebrile. Chest: Crackles at bilateral base. Heart: S1, S2. Systolic murmur. Abdomen: Soft, nontender. Extremities: No edema. Neurologic: Alert, oriented x3. No focal. Laboratory Data: WBC 3.4, H and H 10.5/30.7, platelets 123. Sodium 136, potassium 2.9, bicarb 27, BUN 32, creatinine is 6.7, calcium 7.6, phosphorus 3.2, magnesium 2.2. Current Medications: The patient on include, 1. Tylenol. 2. Azithromycin. 3. Plavix. 4. Epogen 4000 with each dialysis. 5. Heparin. 6. Carvedilol 25 b.i.d. 7. Hydralazine p.r.n. 8. Nifedipine 60 b.i.d. 9. Insulin. 10. Metoclopramide. 11. Hydrocodone. Assessment And Plan: 1. End-stage renal disease, over volume. I am going to continue dialysis. We will dialyze the patient today, full dialysis. We will try to goal for 3 to 4 L as by blood pressure and we will follow up. 2. Hypertension. We will utilize the blood pressure for more ultrafiltration. I am going to go ahead and decrease her carvedilol to 12.5. 3. Anemia of chronic kidney disease. Continue MELA. 4. 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 I am going to start the patient on calcitriol. 5. Hypokalemia. Patient is going to be dialyzed on high potassium bath. 6. COVID pneumonia. Follow up with primary. 7. Respiratory failure, multifactorial secondary to over volume/COVID pneumonia. I am going to dialyze the patient today to establish better volume control and we will follow up. Time spent Corordent the care discussing the case with the patient Family member (face to face) and staff member / other [employer] consultant and placing order 35 min LEIGHANN Voice ID: [id number] Report ID: [id number] MTDD
[2020-01-24] MEDS ORDERED: CALCITROL 0.25 MCG CAP PO SCH (12:00)
[2020-01-24] MEDS: carvediloL 12.5 MG TAB PO SCH (17:03)
[2020-01-24] MEDS: ATORVASTATIN 80 MG TAB PO SCH (21:58)
[2020-01-24] MEDS: INSULIN GLARGINE 100 UNITS/ML SQ SCH (21:59)
[2020-01-25 04:50] LABS: Absolute Lymphocytes (CBC) 0.7 K/uL (0.7-4.9); Basophils % 1.2 % (0-1.3); Hematocrit 27.5 % (36.0-45.0); Lymphocytes % 27.7 % (15.3-44.8); MPV 9.3 fL (7.6-11.3); RBC Red Blood Cell Count 2.86 M/uL (3.86-4.86)
--- NOTE | 2020-01-25 05:07 | P.PN ---
Subjective Date of Service: 01/24/20 Patient continues to do well. Patient's respiratory status has been stable. She is on room air oxygen today and will see how she does. If she does well then I anticipate her going home tomorrow without oxygen. Chest x-ray pending. Lab data does show some slight increase in her inflammatory markers. But clinically she does not show any indication of worsening. Will make sure patient is set up to go to a hemodialysis unit at a COVID-19 unit. Anticipate discharge in a.m. Review of Systems 10-point ROS is otherwise unremarkable Physical Examination - Vital Signs Temperature: 97 F Blood Pressure: 142/64 Pulse: 60 Respirations: 11 Pulse Ox (%): 88 - Physical Exam General: Alert, In no apparent distress, Oriented x3 Neurological: Normal speech, Normal tone, Sensation intact, Cranial nerves 3-12 intact, Normal affect, Abnormal strength (Some mild generalized weakness but overall doing well) - Studies Medications List Reviewed: Yes Assessment & Plan - Problems (Diagnosis) (1) Pneumonia due to COVID-19 virus Current Visit: Yes Status: Acute (2) History of hypertension Current Visit: Yes Status: Acute (3) End-stage renal disease on hemodialysis Current Visit: No Status: Chronic (4) Type 2 diabetes mellitus Current Visit: No Status: Chronic Qualifiers: - Plan Continue with plan of care as mentioned below 1. Dc Zithromax in a.m.. She is going to 5 doses and she is clinically doing well. Chest x-ray with no significant abnormalities. 2. COVID-19 pneumonia; she is doing well on room air oxygen. On likely to need to arrange for home oxygen tomorrow prior to discharge 3. Chest x-ray shows no significant infiltrates. Clinically doing well 4. Hemodialysis per Nephrology; arrange for dialysis at a COVID-19 unit 5. Monitor inflammatory markers 6. GI and DVT prophylaxis Discharge Plan: Home Plan to discharge in: 24 Hours - Advance Directives Does patient have a Living Will: No Does patient have a Durable POA for Healthcare: No - Code Status/Comfort Care Code Status: Full Code Critical Care: No Time Spent Managing PTS Care (In Minutes): 35
[2020-01-25 05:20] LABS: Albumin 2.5 g/dL (3.4-5.0); Bilirubin Total 0.4 mg/dL (0.2-1.0); C-Reactive Protein 32.5 mg/L (<3.00); Ferritin 1145.1 ng/mL (8-388); Magnesium 2.2 mg/dL (1.8-2.4); Phosphorus 4.2 mg/dL (2.5-4.9); Potassium 3.4 mmol/L (3.5-5.1); Protein, Total 7.4 g/dL (6.4-8.2)
[2020-01-25] MEDS: carvediloL 12.5 MG TAB PO SCH (06:00)
[2020-01-25 06:20] VITALS: BMI 27.1
[2020-01-25] MEDS: AZITHROMYCIN IV 500 MG in NA CHLORIDE 0.9% 250 ML IVPB SCH ×2 (09:00→12:59)
[2020-01-25] MEDS: NIFEDIPINE XL 60 MG TABLET PO SCH (09:00)
[2020-01-25] MEDS: METOCLOPRAMIDE 5 MG TAB PO SCH ×2 (09:05→13:00)
[2020-01-25] MEDS: HEPARIN 5000 UNIT/ML 1 ML VIAL SQ SCH (09:06)
[2020-01-25] MEDS: ASPIRIN EC 81 MG TAB PO SCH (09:06)
[2020-01-25] MEDS: CLOPIDOGREL 75 MG TABLET PO SCH (09:06)
--- NOTE | 2020-01-25 10:56 | P.PN ---
Subjective Date of Service: 01/25/20 Chief Complaint: Shortness of breath/hypotension Subjective Pt with ESRD, Covid 19 , admitted for weakness and hypoxia Bp was low yesterday Today no new complaints Off Oxygen seen and examined during HD can be discharged today after HD from nephrology point of view , to resume HD Ttsat COVID unit Physical exam general: AAOX3, in mild distress Neck; Supple, No elevated JVD hear: RRR, normal S1,2 no murmur or rub Chest: B/l basal rales Abdomen: Soft , Nt Extremities No edema or ulcer A/P End-stage renal disease on HD MWF HD today renal dose meds Anemia of chronic disease Cont epogen HTN BP controlled COVID 19 pneumonia now off oxygen , completed Abx cont management as per primary team Physical Examination - Vital Signs Temperature: 97 F Blood Pressure: 142/64 Pulse: 60 Respirations: 11 Pulse Ox (%): 88 - Studies Medications List Reviewed: Yes
[2020-01-25] MEDS: EPOETIN 4,000 UNIT/ML VIAL IV SCH (11:30)
[2020-01-25] MEDS: MORPHINE 2 MG/ML SYR IV PRN (13:07)
[2020-01-25 13:08] VITALS: O2SAT 96
[2020-01-25] MEDS: HYDROCODONE/APAP 7.5/325 MG TAB PO PRN (13:59)
--- NOTE | 2020-01-26 15:23 | P.DS ---
Discharge Date: 01/25/20 Disposition: ROUTINE DISCHARGE Discharge Condition: GOOD Reason for Admission: Shortness of breath/hypotension Consultations: Nephrology consultation - Problems (1) Pneumonia due to COVID-19 virus Status: Acute (2) History of hypertension Status: Acute (3) End-stage renal disease on hemodialysis Status: Chronic (4) Type 2 diabetes mellitus Status: Chronic Qualifiers: Brief History of Present Illness: Patient is a 64-year-old female with a history of end-stage renal disease who presents to the hospital with difficulty breathing. She was also found to be slightly hypotensive. Patient was having persistent coughing and congestion. Patient decided to come into the emergency room for further evaluation. In the emergency room, patient was slightly hypotensive. Patient was also hypoxic with room air saturations of 88%. Patient was started on nebs and MICU. Patient was found to have COVID-19 pneumonia. Patient be admitted to the hospital for further evaluation. Nephrology consultation for hemodialysis. Start on IV steroids as well. Repeat chest x-ray in 48 hr to see if there is improvement. Monitor patient hemodynamically. At this time patient would need inpatient admission for further evaluation. Hospital Course: Patient has done well during hospital stay. Patient is no longer hypoxic. Patient is clinically doing well. Chest x-ray does not show any infiltrates. O2 sats are 96% on room air. Patient has been hemodialyzed today and is doing well. At this time, patient is stable for discharge home with outpatient follow-up. Vital Signs/Physical Exam: Temp Pulse Resp BP Pulse Ox 97.0 F 63 22 H 134/63 96 01/25/20 11:24 01/25/20 15:15 01/25/20 15:15 01/25/20 15:15 01/25/20 15:15 General: Alert, In no apparent distress, Oriented x3 Laboratory Data at Discharge: WBC 2.6 K/uL (4.3-10.9) L D 01/25/20 04:15 Hgb 9.2 g/dL (12.0-15.0) L 01/25/20 04:15 Hct 27.5 % (36.0-45.0) L 01/25/20 04:15 Plt Count 110 K/uL (152-406) L 01/25/20 04:15 PT 12.0 SECONDS (9.5-12.5) 01/22/20 05:04 INR 1.02 01/22/20 05:04 APTT 29.2 SECONDS (24.3-36.9) 01/22/20 05:04 Sodium 134 mmol/L (136-145) L 01/25/20 04:15 Potassium 3.4 mmol/L (3.5-5.1) L 01/25/20 04:15 BUN 38 mg/dL (7-18) H 01/25/20 04:15 Creatinine 8.14 mg/dL (0.55-1.3) H* D 01/25/20 04:15 Glucose 100 mg/dL (74-106) 01/25/20 04:15 Phosphorus 4.2 mg/dL (2.5-4.9) 01/25/20 04:15 Magnesium 2.2 mg/dL (1.8-2.4) 01/25/20 04:15 Total Bilirubin 0.4 mg/dL (0.2-1.0) 01/25/20 04:15 AST 24 U/L (15-37) 01/25/20 04:15 ALT 17 U/L (12-78) 01/25/20 04:15 Alkaline Phosphatase 92 U/L (45-117) 01/25/20 04:15 Troponin I 0.35 ng/mL (0.0-0.045) H 01/24/20 04:57 Triglycerides 205 mg/dL (<150) H 01/22/20 05:04 Cholesterol 170 mg/dL (<200) 01/22/20 05:04 HDL Cholesterol 23 mg/dL (40-60) L 01/22/20 05:04 Cholesterol/HDL Ratio 7.39 01/22/20 05:04 Amylase 41 U/L (25-115) 01/21/20 08:15 Lipase 29 U/L (73-393) L 01/21/20 08:15 Home Medications: Aspirin [Aspirin EC 81 MG] 81 mg PO DAILY 10/22/19 NIFEdipine [Nifedipine ER] 60 mg PO BID 10/22/19 carvediloL [Coreg*] 25 mg PO BID 6AM 6PM 30 Days #60 tab 10/23/19 Atorvastatin Calcium [Lipitor] 80 mg PO BEDTIME 01/21/20 Calcium Carbonate [Tums Regular*] 500 mg PO TID 01/21/20 Ciprofloxacin HCl [Cipro 250 MG Tablet*] 250 mg PO BID 01/21/20 Clopidogrel Bisulfate [Plavix*] 75 mg PO DAILY 01/21/20 Insulin Aspart [Novolog] 12 unit SQ TIDWM 01/21/20 Insulin Glargine Human [Lantus] 12 unit SQ BEDTIME 01/21/20 Lactulose 30 gm PO DAILY PRN 01/21/20 Metoclopramide [Reglan*] 5 mg PO TIDWM 01/21/20 Pantoprazole [Protonix Tab*] 40 mg PO DAILY 01/21/20 Sennosides/Docusate Sodium [Senexon-S 50-8.6 mg Tablet] 1 each PO BID 01/21/20 Sucroferric Oxyhydroxide [Velphoro] 500 mg PO 5XD 01/21/20 Vit B Comp C/Folic Acid/Vit D3 [Dialyvite 800 Plus D Wafer] 1 each PO DAILY 01/21/20 Vitamin E 400 unit PO DAILY 01/21/20 Patient Discharge Instructions: -OK TO DC IV AND DC HOME-PLEASE MAKE SURE HEMODIALYSIS ARRANGEMENTS ARE MADE SINCE PATIENT IS COVID-19 POSITIVE. -FOLLOW-UP WITH PRIMARY CARE PROVIDER IN 1-2 WEEKS. -FOLLOW-UP WITH NEPHROLOGY FOR HEMODIALYSIS. -RETURN TO THE ER IF symptoms worsen. -CALL or TEXT DR. FUNG AT [phone] IF ANY QUESTIONS REGARDING HOSPITAL STAY. -PLEASE CALL THE FLOOR AT [phone] IF ANY MEDICATION OR NURSING QUESTIONS. Diet: Renal Activity: Fall precautions Followup: Wild Bustamante MD [Primary Care Provider] - Time spent managing pt's care (in minutes): 35
[2020-01-26 15:24] VITALS: BP 150/51; TEMP 100.4
[2020-01-28 16:53] LABS: HBsAG Nonreactive (Nonreactive)
== END 2020-01-25 15:25 | disposition home or self-care (01) | DRG 177 ==
LOC: ER 07:36 → OBSVTOIN 11:13 → ERHOLD 11:13 → 3RD-ICU 12:06
PROVIDERS: ADMIT Hospitalist; ATTEND Hospitalist
PROC: 5A1D70Z Performance of Urinary Filtration, Intermittent, Less than 6 Hours Per Day (ICD-10-PCS; principal; 2020-01-22)
DX: U07.1 COVID-19 (principal); N18.6 End stage renal disease; J12.89 Other viral pneumonia; J96.01 Acute respiratory failure with hypoxia; I12.0 Hypertensive chronic kidney disease with stage 5 chronic kidney disease or end stage renal disease; N25.81 Secondary hyperparathyroidism of renal origin; E11.22 Type 2 diabetes mellitus with diabetic chronic kidney disease; K21.9 Gastro-esophageal reflux disease without esophagitis; I25.2 Old myocardial infarction; E78.5 Hyperlipidemia, unspecified; N25.0 Renal osteodystrophy; D63.8 Anemia in other chronic diseases classified elsewhere; E87.6 Hypokalemia; I70.1 Atherosclerosis of renal artery; Z99.2 Dependence on renal dialysis; Z95.828 Presence of other vascular implants and grafts; Z79.02 Long term (current) use of antithrombotics/antiplatelets; Z79.899 Other long term (current) drug therapy; Z98.51 Tubal ligation status; Z79.82 Long term (current) use of aspirin; Z79.4 Long term (current) use of insulin; Z95.1 Presence of aortocoronary bypass graft
CPT/HCPCS: 36415; 71045; 80048; 80053; 80061; 80076; 82150; 82550; 82553; 82728; 82947; 83605; 83615; 83690; 83735; 83880; 84100; 84145; 84484; 85025; 85379; 85610; 85730; 86140; 86317; 86705; 87040; 87070; 87081; 87340; 87804; 90935; 93005; 94760; 96374; 99285; J0360; J0456; J1100; J1170; J1644; J1815; J2270; J2405; J7030; J7040; J7050; Q5105; U0003

== ENCOUNTER 2020-02-20 12:05 | Inpatient (IN) | payer OTHER ==
--- OUTSIDE RECORDS SUMMARY | 2020-02-20 12:21 | XMS REPORT | Clinical Summary ---
:1955 Author Organization [facility] Address [address] [place] [address] Care Team Providers Name Role Phone Dianna [...] Documentation Transplant Dee Dee Dillon RN after 02/19/2019 Immunizations Name Administration Dates Next Due FLUCELVAX [...] Lino geon: Garrick Hagen MD; Location: [facility] OR; Service: Cardiot horacic; Laterality: Lef t; Medical devices from this surgery are in the Implants section . INCISION AND DRAINAGE, 06/26/2018 Arm Lower/Left Procedure : washout of HEMATOMA left forearm wou nd; Surgeon: Klaus Hernandez MD; L ocation: [facility] Main OR; S ervice: Vascular; Later ality: Left; Medical devices from this surgery are in the Implants section . REVISION, ARTERIOVENOUS 06/22/2018 Left Procedur e: LEFT UPPER GRAFT, WITH ANGIOGRAPHY EXTREMIT Y AV FISTULA REVISION , [place] lled Dialysis Cathete r Placement Left IJ; Surgeon: Klaus Hernandez MD; L ocation: [facility] Main OR; S ervice: Vascular; Later ality: [...] CREATION; Surge on: Klaus Denny MD; Location: [facility] Main OR; Service: Vascul ar; [...] Health Maintenance Due Date Last Done Comments DIABETES: RETINAL EYE EXAM 09/05/1967 DIABETIC FOOT EXAM 09/05/1967 COLONOSCOPY SCREENING 09/05/2007 SHINGLES VACCINES (#1) 09/05/2007 INFLUENZA VACCINE 11/03/2019 BREAST CANCER SCREENING 11/16/2019 11/15/2017, 04/10/2015 CERVICAL CANCER SCREENING 08/11/2020 08/11/2017 Implants Implanted Type Area Reinspector Device Shelf Model / Identifier Expiration Serial / Date Lot Catheter Hmodial Dura-Flow Prcrv Bsc Valved Pelbl th 28cm - [id number] Central N/A: N/A ANGIODYNAMICS 06/23/2019 [id number] / Implanted: Qty: 1 on 06/22/2018 by Klaus Denny MD at [facility] [employer] / Catheters Pacemaker Pacemaker Kit Selnt Fibrin Humn Hmsts Surgy 5ml Evicel - [id number] Surgic al N/A: N/A ETHICON US-EH 06/23/2019 [id number] / Implanted: Qty: 1 on 06/22/2018 by Klaus Denny MD at [facility] Implants; / Expanders; Extenders; Surgical Wires Particle Soft-Tissue Grft Micronized For Impntn Recon 1000mg - [id number] Surgical Arm, [employer] 02/02/2020 [id number] / Implanted: Qty: 1 on 06/24/2018 by Agusto Hagen MD at [facility] Implants; Lower / Expanders; Extenders; Surgical Wires Kit Selnt Fibrin Humn [facility] Surgy 5ml Evicel - [id number] Surgic al N/A: N/A ETHICON - 06/27/2019 [id number] / Implanted: Qty: 1 on 06/26/2018 by Klaus Denny MD at [facility] Implants; / Expanders; Extenders; Surgical Wires Results Not on fileafter 02/19/2019 Insurance Payer Benefit Plan / Subscriber ID Effective Dates Phone Addre ss Type Group MEDICARE MEDICARE PART A [id number] 2014-Present [place], [place] Medicare AND B MEDICAID [place]ICA[place] [id number] 2018-[place] Qiana Valdez Transplant Self 1955 [phone] [id number] (Home) [place] [address] Advance Directives For more information, please contact: [phone] Type Date Recorded Patient Medical Office Technologist Explanati on Advance Directives, Living Will 10/25/2018 1:34 PM and Medical Power of Parts Professional Code Status Date Activated Date Inactivated Comments Full Code 06/21/2018 3:48 PM 07/05/2018 4:23 PM Code Status decision reached by: Patient
--- OUTSIDE RECORDS SUMMARY | 2020-02-20 12:21 | XMS REPORT | Continuity of Care Document ---
:1955 Author Organization [facility] t Address [address] [place] [address] Dr. [address] [place] [address] Care Team Providers Name Role Phone Dianna Nunes MD, Bert Primary Care Physician Tomas TRUJILLO, K N Attending Clinician Santana DORSEY Attending Clinician Unavailable Twin TRUJILLO, A Attending Clinician Doctor Unassigned, Name Attending Clinician Unavailable Payers Payer Name Policy Type Policy Effective Date Expiration Date Sour ce Number MEDICAREMEDICARE PART [id number] 2014 [place] AND 00:00:00 [employer] [id number] [place] [id number] 2018 Ike vásquez [id number] 2017-Present 00:00:00 Met alvarez Medicaid Problems Condition Condition Condition Status Onset Resolution Last Treating Co mments Source Name Details Category Date Date Treatment Clinician Date Hematoma Hematoma Disease Active [place] on 07-20 Methodi 00:00: st 00 Acute Acute Disease Active [place] gastroente gastroente 3-20 Me thodi ritis ritis 00:00: st 00 Type 2 Type 2 Disease Active [place] diabetes diabetes 3-27 Method i mellitus mellitus 00:00: st with with 00 diabetic diabetic chronic chronic kidney kidney disease disease Pacemaker Pacemaker Disease Active Ikemaria m vásquez Methodi st Wears Wears Disease Active [place] glasses glasses Methodi st Allergies, Adverse Reactions, Alerts Allergy Allergy Status Severity Reaction(s) Onset Inactive Treating Comm ents Source Name Type Date Date Clinician Heparin Propensi Active Severe "won't [place] ty to 7-24 stop [facility] adverse 00:00: bleeding" st reaction 00 s to drug Family History Family Member Diagnosis Comments Start Date Stop Date Source Natural father Diabetes [place] [facility] Natural mother Diabetes [place] [facility] Social History Social Habit Start Date Stop Date Quantity Comments [facility] Binge Sex Assigned At [facility] Tobacco use and 2018-10-27 2018-10-27 Never used Sandor Hernandes ethodist exposure 00:00:00 00:00:00 Alcohol intake 2018-10-27 2018-10-27 Current [place] [facility] 00:00:00 00:00:00 non-drinker of alcohol (finding) History SDOH 2018-06-21 2018-06-21 1 [place] [facility] Alcohol Frequency 00:00:00 00:00:00 Smoking Status Start Date Stop Date Source Never smoker [place] Method[facility] t Medications Ordered Filled Start Stop Current Ordering Indication Dosage Frequency Signature Comments Components Source Medication Medication Date Date Medication? Clinician (SIG) Name Name ergocalcife Yes 23944I Q7D Take [place] ro[place] 7-25 50,000 [...] 2019-0 Yes TK 1 T PO [place] tartrate 7-12 BID [facility] (LOPRESSOR) 00:00: st 25 mg 00 tablet aspirin 2019- Yes [place] (ECOTRIN) 7-10 [facility] 81 MG 00:00: st enteric 00 coated tablet furosemide 2018- Yes Take by [place] (LASIX) 40 7-10 mouth. [facility]i mg tablet 00:00: st 00 hydrALAZINE 2018- Yes 1{tbl} Take 1 [place] (APRESOLINE [...] 1 Ike ston XL 7-09 tablet by [facility] (PROCARDIA 00:00: mouth. st XL) 60 MG 00 24 hr tablet Procedures This patient has no known procedures. Plan of Care Planned Activity Planned Date Details Comments Source Future Scheduled 2020-08-11 Screening for [facility] Test 00:00:00 malignant neoplasm of cervix (procedure) [code = 754717182] Future Scheduled 2019-11-16 BREAST CANCER [place] [facility] Test 00:00:00 SCREENING [code = BREAST CANCER SCREENING] Future Scheduled 2019-11-03 INFLUENZA VACCINE [place] [facility] Test 00:00:00 [code = INFLUENZA VACCINE] Future Scheduled 2007-09-05 COLONOSCOPY SCREENING [place] [facility] Test 00:00:00 [code = COLONOSCOPY SCREENING] Future Scheduled 2007-09-05 SHINGLES VACCINES [place] [facility] Test 00:00:00 (#1) [code = SHINGLES VACCINES (#1)] Future Scheduled 1967-09-05 DIABETES: RETINAL EYE [place] [facility] Test 00:00:00 EXAM [code = DIABETES: RETINAL EYE EXAM] Future Scheduled 1967-09-05 DIABETIC FOOT EXAM [place] [facility] Test 00:00:00 [code = DIABETIC FOOT EXAM] Encounters Start End Encounter Admission Attending Care Care Encounter Source Date/Time Date/Time Type Type Clinicians Facility Department ID 2018-09-18 Outpatient [facility] [id number] [facility] 08:26:04 2019-08-15 2019-08-15 Telephone Rios [facility] [id number] 00:00:00 00:00:00 Meagan shah MULTISPEC [id number] IAL[place] [id number] WARREN [id number] AND ZACHARIAH [facility] 2018-11-22 2018-11-22 Telephone Twin [facility] [id number] 00:00:00 00:00:00 Bertrand Ivy MULTISPEC [id number] IALTY [id number] WARREN [id number] AND SONI [facility] 2018-06-30 2018-06-30 Orders Doctor JINNY [id number] 00:00:00 00:00:00 Only Unassigned, [place]ED[place] [id number] [place] [facility] [id number] 2018-03-30 2018-03-30 Orders Doctor JINNY [id number] 00:00:00 00:00:00 Only Unassigned, DEEDEE [id number] [place] [facility] [id number] 2018-03-22 2018-03-22 Orders Doctor JINNY [id number] 00:00:00 00:00:00 Only Unassigned, DEEDEE [id number] [place] [facility] [id number] 2018-03-16 2018-03-16 Orders Doctor JINNY [id number] 00:00:00 00:00:00 Only Unassigned, DEEDEE [id number] [place] [facility] [id number] 2018-01-22 2018-01-22 Emergency E MHSE [id number] MH 16:17:00 16:17:00 [facility] 2017-11-24 2017-11-24 Orders Doctor JINNY [id number] 00:00:00 00:00:00 Only Unassigned, DEEDEE [id number] [place] [facility] [id number] [id number] Results This patient has no known results.
--- OUTSIDE RECORDS SUMMARY | 2020-02-20 12:21 | XMS REPORT | Clinical Summary ---
:1955 Author Organization [facility] Address [address] [place] [id number] Care Team Providers Name Role Phone Unavailable Primary Care Provider Unavailable Allergies Not on File Medications Not on file Active Problems Not on file Social History Tobacco Use Types Packs/Day Years Used Date Never Assessed Sex Assigned at Date Recorded Not on file Last Filed Vital Signs Not on file Plan of Treatment Not on file Results Not on fileafter 02/19/2019 Insurance Payer Benefit Plan / Subscriber ID Effective Dates Phone Addre ss Type Group [employer] [id number] 2017-Presen MEDICARE MCD CARE t MEDICAID MEDICAID OF [id number] Effective for [facility] all dates
[2020-02-20 12:52] LABS: Absolute Lymphocytes (CBC) 1.2 K/uL (0.7-4.9); Basophils % 0.6 % (0-1.3); Lymphocytes % 34.4 % (15.3-44.8); MPV 9.4 fL (7.6-11.3); RBC Red Blood Cell Count 3.77 M/uL (3.86-4.86)
[2020-02-20 12:57] LABS: Protime INR 1.01
--- NOTE | 2020-02-20 13:00 | RAD REPORT ---
EXAM DESCRIPTION: CT - Ct Stroke Brain Wo Cont - 02/20/2020 12:47 pm CLINICAL HISTORY: Confusion/alteration of awareness COMPARISON: none TECHNIQUE: Computed axial tomography of the head was obtained. All CT scans are performed using dose optimization technique as appropriate and may include automated exposure control or mA/KV adjustment according to patient size. FINDINGS: An intracranial bleed is not seen . The ventricles are normal in caliber. No extra-axial fluid collection is noted. Mild low-density within periventricular, deep and subcortical white matter likely ischemic changes se condary to small vessel disease Fluid within the sinuses/ mastoids is not seen. IMPRESSION: No acute intracranial abnormality is seen. If patient's symptoms persist MRI of the bra in would be recommended. Yvrose of the emergency room was notified at 12:53 p.m. February 20, 2020
[2020-02-20] MEDS ORDERED: FENTANYL CITR 100 MCG/2 ML ONE (13:01)
[2020-02-20] MEDS ORDERED: NA CHLORIDE 0.9% 250 ML ONE ×2 (13:01→17:51)
[2020-02-20 13:45] LABS: Blood Morphology Comment NOT SEEN (NOT SEEN); Platelet Estimate DECR; White Blood Cell Scan OK (OK)
[2020-02-20] MEDS ORDERED: ASPIRIN 81 MG CHEWABLE TABLET ONE (13:59)
[2020-02-20] MEDS ORDERED: NA CHLORIDE 0.9% 100 ML ONE (14:01)
[2020-02-20] MEDS ORDERED: FOLIC ACID 5 MG/ML VIAL ONE (14:01)
[2020-02-20 14:02] LABS: Potassium 3.6 mmol/L (3.5-5.1)
--- NOTE | 2020-02-20 14:04 | RAD REPORT ---
EXAM DESCRIPTION: CT - Abdomen Pelvis Wo Contrast - 02/20/2020 1:51 pm CLINICAL HISTORY: ABD PAIN COMPARISON: Abdomen Pelvis Wo Contrast dated 05/10/2018 TECHNIQUE: Axial [address] imaging of the abdomen and pelvis was performed without IV contrast. No IV contrast was given because of allergy, abnormal renal function, patient refusal or physician re quest. No oral contrast given. All CT scans are performed using dose optimization technique as appropriate and may include automated exposure control or mA/KV adjustment according to patient size. FINDINGS: No suspicious findings in the lung bases. The liver, spleen and pancreas show no suspicious findings on non-contrast imaging. A few very small gallstones are present which have been previously seen. No active gallbladder process. No biliary ashley e dilatation. No hydronephrosis or suspicious renal mass. No perinephric stranding. Left renal artery stent in plac e. No significant adrenal finding. Isodense renal masses and pyelonephritis cannot be excluded in the absence of IV contrast. Urinary bladder is fully contracted. No uterine or ovarian suspicious findin g. No dilated bowel loops or bowel wall thickening. No free air, free fluid or inflammatory stranding. No hernia, mass or bulky lymphadenopathy. Prominent vascular calcifications are present. No suspicious bony findings. IMPRESSION: Noncontrast CT abdomen and pelvis imaging shows no acute or emergent finding. Above detailed findings are without suspicious change from the May 2018 comparison. Full assessment is limited is the absence of IV contrast.
[2020-02-20 14:10] LABS: Troponin (Emerg Dept Use Only) 0.55 ng/mL (0.0-0.045)
--- NOTE | 2020-02-20 14:18 | RAD REPORT ---
EXAM DESCRIPTION: Samuel Single View02/20/2020 1:42 pm CLINICAL HISTORY: Coronary artery disease. Confusion COMPARISON: January 2020 FINDINGS: The lungs appear clear of acute infiltrate. The heart is mildly to moderately enlarged. P ostsurgical changes involve the chest. Pacemaker leads in place IMPRESSION: No acute abnormalities displayed
--- NOTE | 2020-02-20 14:45 | ER ---
Nurse's Notes [facility] Name: Qiana Valdez Age: 64 yrs Sex: Female : 1955 Arrival Date: 02/20/2020 Time: 12:10 Bed 15 Private MD: Diagnosis: Altered mental status, unspecified;End stage renal disease;Headache Presentation: 02/19 12:18 Chief complaint: EMS states: "She had just finished dialysis and got a sever right jd3 sided headache with confusion. her daughter is saying the pt does not recognize her and she has never been confused like this.". 12:18 Coronavirus screen: At this time, the client does not indicate any symptoms associated jd3 with coronavirus-19. Ebola Screen: Patient negative for fever greater than or equal to 101.5 degrees Fahrenheit, and additional compatible Ebola Virus Disease symptoms. Initial Sepsis Screen: Does the patient meet any 2 criteria? No. Patient's initial sepsis screen is negative. Does the patient have a suspected source of infection? No. Patient's initial sepsis screen is negative. Risk Assessment: Do you want to hurt yourself or someone else? Patient reports no desire to harm self or others. Onset of symptoms was February 20, 2020 at 11:00. 12:18 Method Of Arrival: EMS: [facility] jd3 12:18 Acuity: SIXTO 2 jd3 12:18 Note heparin given with dialysis. jd3 Historical: - Allergies: 13:01 No Known Allergies; jd3 - Home Meds: 13:01 aspirin 81 mg Oral chew 1 tab once daily [Active]; carvedilol 12.5 mg Oral tab 1 tab 2 jd3 times per day [Active]; atorvastatin 40 mg Oral tab 1 tab once daily [Active]; Lactulose 30 gm daily until bowels move and then stop taking prn Oral [Active]; metoclopramide HCl 5 mg Oral tab 1 tab 4 times per day [Active]; losartan 100 mg Oral tab 1 tab twice a day [Active]; hydralazine 50 mg Oral tab 1 tab 2 times per day [Active]; Plavix 75 mg Oral tab 1 tab once daily [Active]; Nifedipine ER Oral 60 mg twice a day [Active]; Senexon 8.6 mg Oral tab twice a day [Active]; pantoprazole 40 mg Oral TbEC 1 tab once daily [Active]; - PMHx: 13:01 Diabetes - IDDM; Hypertension; Myocardial infarction; High Cholesterol; GERD; jd3 hyperparathyroidism; ESRD; IRON DEFICIENCY ANEMIA; Chronic ischemic heart disease; DIALYSIS MWF; - PSHx: 13:01 CABG; DIALYSIS FISTULA R FOREARM; jd3 - Immunization history:: Adult Immunizations up to date. - Social history:: Smoking status: Patient denies any tobacco usage or history of. - Family history:: not pertinent. - Hospitalizations: : No recent hospitalization is reported. Screenin:24 Abuse screen: Denies threats or abuse. Nutritional screening: No deficits noted. jd3 Tuberculosis screening: No symptoms or risk factors identified. Fall Risk IV access (20 points). Ambulatory Aid- None/Bed Rest/Nurse Assist (0 pts). Gait- Normal/Bed Rest/Wheelchair (0 pts) Mental Status- Overestimates/Forgets Limitations (15 pts.). Total Overton Fall Scale indicates Low Risk Score (25-44 pts). Fall prevention measures have been instituted. Side Rails Up X 2 Placed close to Nursing Station Frequent Obs/Assesments occuring Family Present and informed to notify staff if they need to leave bedside. 13:06 The patient has not been NPO before screening. The patient is currently on the jd3 following diet: regular The patient is alert, able to follow commands. The patient does not exhibit slurred or garbled speech The patient is not exhibiting difficulty speaking. The patient does not exhibit difficulty understanding words. The patient is able to swallow own secretions with no drooling or need for suction. Patient tolerated one teaspoon of water. No drooling, immediate coughing, gurgling, or clearing of the throat was noted. The patient tolerated 90mL of water. No drooling, immediate coughing, gurgling, or clearing of the throat was noted. The patient passed the bedside swallow screening. Oral medications may be given as ordered. Contact Physician for further diet orders. Provider notified of bedside swallow screening results: Adam Lau MD. Assessment: 12:24 General: Appears uncomfortable, Behavior is cooperative, anxious. Pain: Complains of jd3 pain in head and abdomen Quality of pain is described as sharp. Neuro: Level of Consciousness is awake, alert, obeys commands, confused, Oriented to person, Subassembler are equal bilaterally Moves all extremities. Full function Speech is normal, Facial symmetry appears normal, Pupils are Pupil Size: 2mm constricted, Intact. Cardiovascular: Capillary refill < 3 seconds Patient's skin is warm and dry. Rhythm is irregular. Respiratory: Airway is patent Respiratory effort is even, unlabored, Respiratory pattern is regular, symmetrical, Denies cough, shortness of breath. GI: Reports lower abdominal pain, Patient currently denies constipation, diarrhea, nausea, vomiting. : No signs and/or symptoms were reported regarding the genitourinary system. EENT: No signs and/or symptoms were reported regarding the EENT system. Derm: Skin is intact, Skin is dry, Skin is normal, Skin temperature is warm. Musculoskeletal: Circulation, motion, and sensation intact. Range of motion: intact in all extremities. 12:54 Reassessment: Dr. Lane reports CT was negative. iw 13:08 Reassessment: No changes from previously documented assessment. Patient and/or family jd3 updated on plan of care and expected duration. Pain level reassessed. 14:06 Reassessment: No changes from previously documented assessment. Patient and/or family jd3 updated on plan of care and expected duration. Pain level reassessed. 14:51 Reassessment: Patient appears in no apparent distress at this time. Patient and/or jd3 family updated on plan of care and expected duration. Pain level reassessed. Patient is alert, oriented x 3, equal unlabored respirations, skin warm/dry/pink. Neuro: Level of Consciousness is awake, alert, obeys commands, Oriented to person, place, time, situation. 16:27 Reassessment: Patient appears in no apparent distress at this time. Patient and/or jd3 family updated on plan of care and expected duration. Pain level reassessed. Patient is alert, oriented x 3, equal unlabored respirations, skin warm/dry/pink. Patient states feeling better. Patient states symptoms have improved. 17:16 Reassessment: Patient appears in no apparent distress at this time. Patient and/or jd3 family updated on plan of care and expected duration. Pain level reassessed. Patient is alert, oriented x 3, equal unlabored respirations, skin warm/dry/pink. Patient states feeling better. 18:21 Reassessment: Patient appears in no apparent distress at this time. Patient and/or jd3 family updated on plan of care and expected duration. Pain level reassessed. Patient is alert, oriented x 3, equal unlabored respirations, skin warm/dry/pink. charting continued in [facility] Patient states feeling better. 20:19 Reassessment: Patient appears in no apparent distress at this time. No changes from [facility] previously documented assessment. Patient and/or family updated on plan of care and expected duration. Pain level reassessed. Patient is alert, oriented x 3, equal unlabored respirations, skin warm/dry/pink. 20:24 Reassessment: report given to [facility] Vital Signs: 12:20 BP 115 / 58; Pulse 80; Resp 18; Temp 97.4; Pulse Ox 100% ; Weight 63.5 kg; Height 63 [facility] in. (160.02 cm); Pain 10/10; 13:08 BP 110 / 53; Pulse 60; Resp 17 S; Pulse Ox 100% on R/A; jd3 14:06 BP 121 / 58; Pulse 60; Resp 13 S; Pulse Ox 97% on R/A; jd3 14:52 BP 122 / 63; Pulse 60; Resp 17 S; Pulse Ox 95% on R/A; jd3 16:27 BP 124 / 57; Pulse 60; Resp 17 S; Pulse Ox 98% on R/A; jd3 17:16 BP 124 / 59; Pulse 60; Resp 17 S; Pulse Ox 99% on R/A; jd3 18:21 BP 130 / 62; Pulse 60; Resp 17 S; Pulse Ox 95% on R/A; jd3 20:20 BP 135 / 65; Pulse 59; Resp 17 S; Pulse Ox 95% on R/A; jd3 12:20 Body Mass Index 24.80 (63.50 kg, 160.02 cm) [facility] Kenna Coma Score: 14:42 Eye Response: spontaneous(4). Verbal Response: confused(4). Motor Response: obeys rn commands(6). Total: 14. NIH Stroke Scale Scores: 12:24 NIHSS Score: 1 j 13:10 NIHSS Score: 1 rn 14:51 NIHSS Score: 0 [facility] ED Course: 12:10 Patient arrived in ED. [facility] 12:13 Adam Lau MD is Attending Physician. rn 12:24 Patient has correct armband on for positive identification. Bed in low position. Call [facility] light in reach. Side rails up X 1. Side rails up X2. Adult w/ patient. separations scientist on. Pulse ox on. NIBP on. 12:31 Pranay Coronel, RN is Primary Nurse. jd3 12:45 Inserted saline lock: 22 gauge in left forearm, using aseptic technique. jd3 12:47 CT Stroke Brain w/o Contrast In Process Unspecified. EDMS 12:59 Triage completed. jd3 13:03 Arm band placed on. jd3 13:42 Stroke CXR 1 View In Process Unspecified. EDMS 13:52 CT Abd/Pelvis - Without Contrast In Process Unspecified. EDMS 14:44 Ledy Argueta MD is Hospitalizing Provider. rn 16:53 No provider procedures requiring assistance completed. Patient admitted, IV remains in jd3 place. 17:16 Admitting physician to see patient. jd3 Administered Medications: 12:52 Drug: fentaNYL (PF) 50 mcg Route: IVP; Site: left forearm; jd3 13:50 Follow up: Response: No adverse reaction; RASS: Alert and Calm (0) jd3 12:52 Drug: NS 0.9% 250 ml Route: IV; Rate: 1 bolus; Site: left forearm; jd3 13:50 Follow up: Response: No adverse reaction; IV Status: Completed infusion; IV Intake: jd3 250ml 14:00 Drug: Aspirin Chewable Tablet 324 mg Route: PO; jd3 15:00 Follow up: Response: No adverse reaction jd3 14:00 Drug: foLIC Acid 1 mg Route: IVPB; Site: left forearm; jd3 16:52 Follow up: Response: No adverse reaction; IV Status: Completed infusion; IV Intake: jd3 100ml 14:50 Drug: morphine 2 mg Route: IVP; Site: left forearm; jd3 15:50 Follow up: Response: No adverse reaction; RASS: Alert and Calm (0) jd3 14:51 Drug: Zofran (Ondansetron) 4 mg Route: IVP; Site: left forearm; jd3 15:50 Follow up: Response: No adverse reaction jd3 Intake: 13:50 IV: 250ml; Total: 250ml. jd3 16:52 IV: 100ml; Total: 350ml. jd3 Outcome: 14:44 Decision to Hospitalize by Provider. rn 18:22 Admitted to ER Hold. Please see [facility] for further documentation. alirio 18:22 Condition: stable 18:22 Instructed on the need for admit, Demonstrated understanding of instructions. 20:49 Patient left the ED. alirio NIH Stroke Scale - NIH Stroke Score Date: 02/20/2020 Time: 12:24 Total Score = 1 1a. Level of Consciousness (LOC) - 0(Alert) 1b. Level of Consciousness (LOC) (Year \\T\\ Age) - 1(One) 1c. LOC Commands (Open \\T\\ Closes Eyes/Mold Yard Supervisor) - 0(Both) 2. Best Gaze (Lateral Gaze Paresis) - 0(Normal) 3. Visual Field Loss - 0(No visual loss) 4. Facial Palsy - 0(Normal) 5a. Left Arm: Motor (10-second hold) - 0(No drift) 5b. Right Arm: Motor (10-second hold) - 0(No drift) 6a. Left Leg: Motor (5-second hold - always test supine) - 0(No drift) 6b. Right Leg: Motor (5-second hold - always test supine) - 0(No drift) 7. Limb Ataxia (finger/nose \\T\\ heel/romo - test with eyes open) - 0(Absent) 8. Sensory Loss (pinprick arms/legs/face) - 0(Normal) 9. Best Language: Aphasia (description/naming/reading) - 0(No aphasia) 10. Dysarthria (speech clarity - read or repeat words) - 0(Normal) 11. Extinction and Inattention (visual/tactile/auditory/spatial/personal) - 0(No abnormality) Initials: alirio NIH Stroke Scale - NIH Stroke Score Date: 02/20/2020 Time: 13:10 Total Score = 1 1a. Level of Consciousness (LOC) - 0(Alert) 1b. Level of Consciousness (LOC) (Year \\T\\ Age) - 1(One) 1c. LOC Commands (Open \\T\\ Closes Eyes/Mold Yard Supervisor) - 0(Both) 2. Best Gaze (Lateral Gaze Paresis) - 0(Normal) 3. Visual Field Loss - 0(No visual loss) 4. Facial Palsy - 0(Normal) 5a. Left Arm: Motor (10-second hold) - 0(No drift) 5b. Right Arm: Motor (10-second hold) - 0(No drift) 6a. Left Leg: Motor (5-second hold - always test supine) - 0(No drift) 6b. Right Leg: Motor (5-second hold - always test supine) - 0(No drift) 7. Limb Ataxia (finger/nose \\T\\ heel/romo - test with eyes open) - 0(Absent) 8. Sensory Loss (pinprick arms/legs/face) - 0(Normal) 9. Best Language: Aphasia (description/naming/reading) - 0(No aphasia) 10. Dysarthria (speech clarity - read or repeat words) - 0(Normal) 11. Extinction and Inattention (visual/tactile/auditory/spatial/personal) - 0(No abnormality) Initials: ian NIH Stroke Scale - NIH Stroke Score Date: 02/20/2020 Time: 14:51 Total Score = 0 1a. Level of Consciousness (LOC) - 0(Alert) 1b. Level of Consciousness (LOC) (Year \\T\\ Age) - 0(Both) 1c. LOC Commands (Open \\T\\ Closes Eyes/Mold Yard Supervisor) - 0(Both) 2. Best Gaze (Lateral Gaze Paresis) - 0(Normal) 3. Visual Field Loss - 0(No visual loss) 4. Facial Palsy - 0(Normal) 5a. Left Arm: Motor (10-second hold) - 0(No drift) 5b. Right Arm: Motor (10-second hold) - 0(No drift) 6a. Left Leg: Motor (5-second hold - always test supine) - 0(No drift) 6b. Right Leg: Motor (5-second hold - always test supine) - 0(No drift) 7. Limb Ataxia (finger/nose \\T\\ heel/romo - test with eyes open) - 0(Absent) 8. Sensory Loss (pinprick arms/legs/face) - 0(Normal) 9. Best Language: Aphasia (description/naming/reading) - 0(No aphasia) 10. Dysarthria (speech clarity - read or repeat words) - 0(Normal) 11. Extinction and Inattention (visual/tactile/auditory/spatial/personal) - 0(No abnormality) Initials: jd3 Signatures: Dispatcher [employer] Yvrose Ames RN RN iw Nieto, Roman, MD MD rn Davies, Jonathon, RN RN jd3 Corrections: (The following items were deleted from the chart) 13:00 12:18 Onset of symptoms was February 20, 2020 jd3 jd3 14:07 14:06 Pulse 60bpm; Resp 13bpm; Spontaneous; Pulse Ox 97% RA; jd3 jd3
--- NOTE | 2020-02-20 14:45 | EDPHYS ---
Physician Documentation [facility] – [place], [place] Name: Qiana Valdez Age: 64 yrs Sex: Female : 1955 Arrival Date: 02/20/2020 Time: 12:10 Bed 15 Private MD: ED Physician Adam Lau HPI: 02/19 14:34 This 64 yrs old Female presents to ER via EMS with complaints of confusion, rn headache. 14:34 The patient complains of pain to the right side of head. The patient describes the rn headache as aching. Onset: The symptoms/episode began/occurred at 11:00. Associated signs and symptoms: Pertinent positives: altered mental status, Pertinent negatives: dizziness, fever, neck stiffness, paresthesias, vision changes, vision loss, vomiting, weakness, vertigo. Severity of symptoms: At its worst the pain was severe, in the emergency department the pain is unchanged. Headache History: The patient has had previous headaches and this one is different than previous episodes. The symptoms are alleviated by nothing. the symptoms are aggravated by nothing. The patient has experienced similar episodes in the past. The patient has not recently seen a physician. Daughter reports headache and confusion that began after dialysis, no trauma, patient doesn't recognize daughter. No focal weakness/numbness/slurred speech/vision problems. NO vomiting/diarrhea. Daughter states usually gets headaches with high blood pressure but today is "low for her". . Historical: - Allergies: 13:01 No Known Allergies; jd3 - Home Meds: 13:01 aspirin 81 mg Oral chew 1 tab once daily [Active]; carvedilol 12.5 mg Oral tab 1 tab 2 jd3 times per day [Active]; atorvastatin 40 mg Oral tab 1 tab once daily [Active]; Lactulose 30 gm daily until bowels move and then stop taking prn Oral [Active]; metoclopramide HCl 5 mg Oral tab 1 tab 4 times per day [Active]; losartan 100 mg Oral tab 1 tab twice a day [Active]; hydralazine 50 mg Oral tab 1 tab 2 times per day [Active]; Plavix 75 mg Oral tab 1 tab once daily [Active]; Nifedipine ER Oral 60 mg twice a day [Active]; Senexon 8.6 mg Oral tab twice a day [Active]; pantoprazole 40 mg Oral TbEC 1 tab once daily [Active]; - PMHx: 13:01 Diabetes - IDDM; Hypertension; Myocardial infarction; High Cholesterol; GERD; jd3 hyperparathyroidism; ESRD; IRON DEFICIENCY ANEMIA; Chronic ischemic heart disease; DIALYSIS MWF; - PSHx: 13:01 CABG; DIALYSIS FISTULA R FOREARM; jd3 - Immunization history:: Adult Immunizations up to date. - Social history:: Smoking status: Patient denies any tobacco usage or history of. - Family history:: not pertinent. - Hospitalizations: : No recent hospitalization is reported. ROS: 14:34 Constitutional: Negative for fever, chills, and weight loss, Eyes: Negative for injury, rn pain, redness, and discharge, ENT: Negative for injury, pain, and discharge, Neck: Negative for injury, pain, and swelling, Cardiovascular: Negative for chest pain, palpitations, and edema, Respiratory: Negative for shortness of breath, cough, wheezing, and pleuritic chest pain, Abdomen/GI: + abdominal pain Back: Negative for injury and pain, : Negative for injury, bleeding, discharge, and swelling, MS/Extremity: Negative for injury and deformity, Skin: Negative for injury, rash, and discoloration, Neuro: Negative for weakness, numbness, tingling, and seizure. Exam: 14:34 Constitutional: This is a well developed, well nourished patient who is awake, alert, rn appears anxious and scared Head/Face: Normocephalic, atraumatic. Eyes: Pupils equal round and reactive to light, extra-ocular motions intact. Lids and lashes normal. Conjunctiva and sclera are non-icteric and not injected. Cornea within normal limits. Periorbital areas with no swelling, redness, or edema. ENT: dry MM Neck: Trachea midline, no masses palpated, and no cervical lymphadenopathy. Supple, full range of motion without nuchal rigidity, or vertebral point tenderness. No Meningismus. Cardiovascular: Regular rate and rhythm. No pulse deficits. Respiratory: No increased work of breathing, no retractions or nasal flaring. Abdomen/GI: soft, + RLQ and LLQ tenderness, no rebound, no masses Skin: Warm, dry MS/ Extremity: Pulses equal, no cyanosis. Neurovascular intact. Full, normal range of motion. Equal circumference. Neuro: Awake and alert, GCS 15, oriented to person, not place or time. Cranial nerves II-XII grossly intact. Motor strength 4/5 in all extremities. Sensory grossly intact. Cerebellar exam normal. Vital Signs: 12:20 BP 115 / 58; Pulse 80; Resp 18; Temp 97.4; Pulse Ox 100% ; Weight 63.5 kg; Height 63 jd3 in. (160.02 cm); Pain 10/10; 13:08 BP 110 / 53; Pulse 60; Resp 17 S; Pulse Ox 100% on R/A; jd3 14:06 BP 121 / 58; Pulse 60; Resp 13 S; Pulse Ox 97% on R/A; jd3 14:52 BP 122 / 63; Pulse 60; Resp 17 S; Pulse Ox 95% on R/A; jd3 16:27 BP 124 / 57; Pulse 60; Resp 17 S; Pulse Ox 98% on R/A; jd3 17:16 BP 124 / 59; Pulse 60; Resp 17 S; Pulse Ox 99% on R/A; jd3 18:21 BP 130 / 62; Pulse 60; Resp 17 S; Pulse Ox 95% on R/A; jd3 20:20 BP 135 / 65; Pulse 59; Resp 17 S; Pulse Ox 95% on R/A; jd3 12:20 Body Mass Index 24.80 (63.50 kg, 160.02 cm) jd3 NIH Stroke Scale Scores: 12:24 NIHSS Score: 1 jd3 13:10 NIHSS Score: 1 rn 14:51 NIHSS Score: 0 jd3 [place] Coma Score: 14:42 Eye Response: spontaneous(4). Verbal Response: confused(4). Motor Response: obeys rn commands(6). Total: 14. MDM: 12:14 Patient medically screened. rn 12:26 ED course: CT head no acute findings per Dr. Foley. . rn 13:27 ED course: Consulted with Dr. Henderson, agrees that sounds like global issue, possibly rn post-dialysis vs sudden drop in BP, does not recommend TPA. Spoke with daughter about this and plan is to admit, get EEG, and observe for improvement of symptoms. NIH 1 and really only for not knowing year, but knows birthdate and names of her children. Pt acting scared and nervous, and repeat neuro exam doesn't reveal anything focal. . 14:42 Differential diagnosis: cerebral vascular accident, hypertensive headache, rn intracerebral hemorrhage, migraine, subdural hematoma, tension headache, uremia, vasomotor headache, Post dialysis syndrome, relative hypotension. Data reviewed: vital signs, nurses notes, lab test result(s), EKG, radiologic studies, CT scan, plain films, and as a result, I will admit patient. Counseling: I had a detailed discussion with the patient and/or guardian regarding: the historical points, exam findings, and any diagnostic results supporting the discharge/admit diagnosis, lab results, radiology results, the need for further work-up and treatment in the hospital. Medical screen evaluation completed. [facility] emergency medical condition absent. Response to treatment: the patient's symptoms have mildly improved after treatment, and as a result, I will admit patient. ED course: Had long discussion with daughter regarding plan of treatment and eval, she agrees with what I told her after discussion with Dr. Henderson, given non-focal exam and just after dialysis, possibly temporary global problem, will not give TPA given no focal findings, only abnormality is confusion.. 16:30 ED course: Pt improved, now oriented and recognizes daughter.. rn 02/19 12:25 Order name: CPK; Complete Time: 14: 02/19 12:25 Order name: Troponin (emerg Dept Use Only); Complete Time: 14: 02/19 12:25 Order name: Basic Metabolic Panel; Complete Time: 14: 02/19 12:25 Order name: CBC with Diff; Complete Time: 14: 02/19 12:25 Order name: Protime (+inr); Complete Time: 13:23 02/19 12:25 Order name: Ptt, Activated; Complete Time: 13:23 02/19 12:43 Order name: Glucose, Ancillary Testing; Complete Time: 12:43 EDW[facility] 02/19 13:46 Order name: CBC Smear Scan; Complete Time: 14:11 EDWY 02/19 15:07 Order name: CBC with Automated Diff ED[facility] 02/19 15:07 Order name: CBC with Automated Diff [facility] 02/19 15:07 Order name: Comprehensive Metabolic Panel [facility] 02/19 15:07 Order name: Comprehensive Metabolic Panel [facility] 02/19 15:07 Order name: Lipid Profile [facility] 02/19 15:07 Order name: Lipid Profile [facility] 02/19 12:25 Order name: CT Stroke Brain w/o Contrast; Complete Time: 13:23 rn 02/19 12:25 Order name: Stroke CXR 1 View; Complete Time: 14:22 rn 02/19 13:35 Order name: CT Abd/Pelvis - Without Contrast; Complete Time: 14:11 rn 02/19 15:07 Order name: Magnesium EDMS 02/19 15:07 Order name: Magnesium EDMS 02/19 15:07 Order name: Phosphorus EDMS 02/19 15:07 Order name: Phosphorus EDMS 02/19 15:07 Order name: Protime (+INR) EDMS 02/19 15:07 Order name: Protime (+INR) EDMS 02/19 15:07 Order name: PTT, Activated Partial Thromb EDMS 02/19 15:07 Order name: PTT, Activated Partial Thromb EDMS 02/19 15:07 Order name: T4,Total EDMS 02/19 15:07 Order name: T4,Total EDMS 02/19 15:07 Order name: Thyroid Stimulating Hormone EDMS 02/19 15:07 Order name: Thyroid Stimulating Hormone EDMS 02/19 12:25 Order name: EKG; Complete Time: 12:26 rn 02/19 12:25 Order name: Accucheck; Complete Time: 12:31 rn 02/19 12:25 Order name: Cardiac monitoring; Complete Time: 12:31 rn 02/19 12:25 Order name: EKG - Nurse/Tech; Complete Time: 12:46 rn 02/19 12:25 Order name: IV Saline Lock; Complete Time: 12:46 rn 02/19 12:25 Order name: Labs collected and sent; Complete Time: 12:46 rn 02/19 12:25 Order name: NPO; Complete Time: 12:31 rn 02/19 12:25 Order name: O2 Per Protocol; Complete Time: 12:31 rn 02/19 12:25 Order name: O2 Sat Monitoring; Complete Time: 12:31 rn 02/19 12:25 Order name: Stroke Swallow Screen; Complete Time: 12:46 rn 02/19 15:07 Order name: Physical Therapy Consult EDMS 02/19 15:07 Order name: NPO EDMS 02/19 15:07 Order name: NPO EDMS 02/19 15:07 Order name: NPO EDMS 02/19 15:07 Order name: Echo with Doppler EDMS 02/19 15:07 Order name: EKG Electrocardiogram EDWY 02/19 15:07 Order name: Stroke Protocol EDMS Administered Medications: 12:52 Drug: fentaNYL (PF) 50 mcg Route: IVP; Site: left forearm; jd3 13:50 Follow up: Response: No adverse reaction; RASS: Alert and Calm (0) jd3 12:52 Drug: NS 0.9% 250 ml Route: IV; Rate: 1 bolus; Site: left forearm; jd3 13:50 Follow up: Response: No adverse reaction; IV Status: Completed infusion; IV Intake: jd3 250ml 14:00 Drug: Aspirin Chewable Tablet 324 mg Route: PO; jd3 15:00 Follow up: Response: No adverse reaction jd3 14:00 Drug: foLIC Acid 1 mg Route: IVPB; Site: left forearm; jd3 16:52 Follow up: Response: No adverse reaction; IV Status: Completed infusion; IV Intake: jd3 100ml 14:50 Drug: morphine 2 mg Route: IVP; Site: left forearm; jd3 15:50 Follow up: Response: No adverse reaction; RASS: Alert and Calm (0) jd3 14:51 Drug: Zofran (Ondansetron) 4 mg Route: IVP; Site: left forearm; jd3 15:50 Follow up: Response: No adverse reaction jd3 Disposition: 02/20/20 14:44 Hospitalization ordered by Ledy Argueta for Inpatient Admission. Preliminary diagnosis are Altered mental status, unspecified, End stage renal disease, Headache. - Bed requested for Telemetry/MedSurg (Inpatient). - Status is Inpatient Admission. jd3 - Condition is Stable. - Problem is new. - Symptoms have improved. NIH Stroke Scale - NIH Stroke Score Date: 02/20/2020 Time: 12:24 Total Score = 1 1a. Level of Consciousness (LOC) - 0(Alert) 1b. Level of Consciousness (LOC) (Year \\T\\ Age) - 1(One) 1c. LOC Commands (Open \\T\\ Closes Eyes/Payroll And Benefits Specialist) - 0(Both) 2. Best Gaze (Lateral Gaze Paresis) - 0(Normal) 3. Visual Field Loss - 0(No visual loss) 4. Facial Palsy - 0(Normal) 5a. Left Arm: Motor (10-second hold) - 0(No drift) 5b. Right Arm: Motor (10-second hold) - 0(No drift) 6a. Left Leg: Motor (5-second hold - always test supine) - 0(No drift) 6b. Right Leg: Motor (5-second hold - always test supine) - 0(No drift) 7. Limb Ataxia (finger/nose \\T\\ heel/romo - test with eyes open) - 0(Absent) 8. Sensory Loss (pinprick arms/legs/face) - 0(Normal) 9. Best Language: Aphasia (description/naming/reading) - 0(No aphasia) 10. Dysarthria (speech clarity - read or repeat words) - 0(Normal) 11. Extinction and Inattention (visual/tactile/auditory/spatial/personal) - 0(No abnormality) Initials: jd3 NIH Stroke Scale - NIH Stroke Score Date: 02/20/2020 Time: 13:10 Total Score = 1 1a. Level of Consciousness (LOC) - 0(Alert) 1b. Level of Consciousness (LOC) (Year \\T\\ Age) - 1(One) 1c. LOC Commands (Open \\T\\ Closes Eyes/Payroll And Benefits Specialist) - 0(Both) 2. Best Gaze (Lateral Gaze Paresis) - 0(Normal) 3. Visual Field Loss - 0(No visual loss) 4. Facial Palsy - 0(Normal) 5a. Left Arm: Motor (10-second hold) - 0(No drift) 5b. Right Arm: Motor (10-second hold) - 0(No drift) 6a. Left Leg: Motor (5-second hold - always test supine) - 0(No drift) 6b. Right Leg: Motor (5-second hold - always test supine) - 0(No drift) 7. Limb Ataxia (finger/nose \\T\\ heel/romo - test with eyes open) - 0(Absent) 8. Sensory Loss (pinprick arms/legs/face) - 0(Normal) 9. Best Language: Aphasia (description/naming/reading) - 0(No aphasia) 10. Dysarthria (speech clarity - read or repeat words) - 0(Normal) 11. Extinction and Inattention (visual/tactile/auditory/spatial/personal) - 0(No abnormality) Initials: rn NIH Stroke Scale - NIH Stroke Score Date: 02/20/2020 Time: 14:51 Total Score = 0 1a. Level of Consciousness (LOC) - 0(Alert) 1b. Level of Consciousness (LOC) (Year \\T\\ Age) - 0(Both) 1c. LOC Commands (Open \\T\\ Closes Eyes/Payroll And Benefits Specialist) - 0(Both) 2. Best Gaze (Lateral Gaze Paresis) - 0(Normal) 3. Visual Field Loss - 0(No visual loss) 4. Facial Palsy - 0(Normal) 5a. Left Arm: Motor (10-second hold) - 0(No drift) 5b. Right Arm: Motor (10-second hold) - 0(No drift) 6a. Left Leg: Motor (5-second hold - always test supine) - 0(No drift) 6b. Right Leg: Motor (5-second hold - always test supine) - 0(No drift) 7. Limb Ataxia (finger/nose \\T\\ heel/romo - test with eyes open) - 0(Absent) 8. Sensory Loss (pinprick arms/legs/face) - 0(Normal) 9. Best Language: Aphasia (description/naming/reading) - 0(No aphasia) 10. Dysarthria (speech clarity - read or repeat words) - 0(Normal) 11. Extinction and Inattention (visual/tactile/auditory/spatial/personal) - 0(No abnormality) Initials: jd3 Signatures: Dispatcher [employer] [facility] Sarah Deleon Roman, MD MD rn Davies, Jonathon, RN RN jd3 Corrections: (The following items were deleted from the chart) 13:10 12:26 NIHSS Score: 0 rn rn 13:18 12:26 Brain Wo Cont+MRI.RAD.BRZ ordered. [facility] EDWY 14:37 14:34 Constitutional: Negative for fever, chills, and weight loss, Eyes: rn Negative for injury, pain, redness, and discharge, ENT: Negative for injury, pain, and discharge, Neck: Negative for injury, pain, and swelling, Cardiovascular: Negative for chest pain, palpitations, and edema, Respiratory: Negative for shortness of breath, cough, wheezing, and pleuritic chest pain, Abdomen/GI: Negative for abdominal pain, nausea, vomiting, diarrhea, and constipation, Back: Negative for injury and pain, : Negative for injury, bleeding, discharge, and swelling, MS/Extremity: Negative for injury and deformity, Skin: Negative for injury, rash, and discoloration, Neuro: Negative for weakness, numbness, tingling, and seizure, rn 18:30 14:44 Hospitalization Ordered by Ledy Argueta MD for Inpatient Admission. bd Preliminary diagnosis is Altered mental status, unspecified; End stage renal disease; Headache. Bed requested for Telemetry/MedSurg (Inpatient). Status is Inpatient Admission. Condition is Stable. Problem is new. Symptoms have improved. rn 20:49 18:30 02/20/2020 14:44 Hospitalization Ordered by Ledy Argueta MD for jd3 Inpatient Admission. Preliminary diagnosis is Altered mental status, unspecified; End stage renal disease; Headache. Bed requested for Telemetry/MedSurg (Inpatient). Status is Inpatient Admission. Condition is Stable. Problem is new. Symptoms have improved. bd
[2020-02-20] MEDS ORDERED: ONDANSETRON 4 MG/2 ML VIAL ONE (14:58)
[2020-02-20] MEDS ORDERED: MORPHINE 2 MG/ML SYR ONE (14:58)
[2020-02-20] MEDS ORDERED: ONDANSETRON 4 MG/2 ML VIAL IV PRN (15:02)
[2020-02-20] MEDS ORDERED: ACETAMINOPHEN 500 MG TAB PO PRN (15:02)
[2020-02-20] MEDS ORDERED: NA CHLORIDE 0.9% 1,000 ML IV SCH (16:00)
[2020-02-20] MEDS: ENOXAPARIN 40 MG/0.4 ML SQ SCH (16:00)
[2020-02-20] MEDS ORDERED: NA CHLORIDE 0.9% 250 ML IV STA (17:32)
[2020-02-20] MEDS ORDERED: ACETAMIN/CAFFEINE/BUTALB TAB PO ONE ×2 (17:51→18:00)
[2020-02-20] MEDS ORDERED: ENOXAPARIN 40 MG/0.4 ML SQ ONE (17:52)
[2020-02-20] MEDS: ATORVASTATIN 40 MG TAB PO SCH (21:00)
[2020-02-20] MEDS: FENTANYL CITR 100 MCG/2 ML IV PRN (23:36)
[2020-02-21 04:57] LABS: Absolute Lymphocytes (CBC) 1.1 K/uL (0.7-4.9); Basophils % 4.3 % (0-1.3); Hematocrit 32.9 % (36.0-45.0); Lymphocytes % 42.6 % (15.3-44.8); MPV 9.3 fL (7.6-11.3); RBC Red Blood Cell Count 3.31 M/uL (3.86-4.86)
[2020-02-21 05:18] LABS: Protime INR 1.07
[2020-02-21 05:20] LABS: Albumin 3.1 g/dL (3.4-5.0); Bilirubin Total 0.7 mg/dL (0.2-1.0); Magnesium 2.3 mg/dL (1.8-2.4); Protein, Total 7.5 g/dL (6.4-8.2); T4,Total 7.7 ug/dL (4.8-13.9); Thyroid Stimulating Hormone 1.14 uIU/mL (0.360-3.740)
--- NOTE | 2020-02-21 06:06 | EKG ---
Test Date: 2020-02-20 Test Time: 12:37:55 Paving Supervisor: KELLY MEASUREMENT RESULTS: Intervals: Rate: 61 [place]: 144 QRSD: 94 QT: 512 QTc: 515 [place]: P: 61 [place]: 144 QRS: 53 T: 243 INTERPRETIVE STATEMENTS: Normal sinus rhythm ST & Marked T wave abnormality, consider inferior ischemia Prolonged QT Abnormal ECG Compared to ECG 01/21/2020 08:47:16 T-wave abnormality now present Possible ischemia now present Junctional rhythm no longer present Left ventricular hypertrophy no longer present ST (T wave) deviation no longer present Electronically Signed On 02-21-20 06:03:10 TRAINING AND DEVELOPMENT OFFICER by Papi Mi
[2020-02-21 09:17] LABS: Blood Morphology Comment NOT SEEN (NOT SEEN); Platelet Estimate DECR
--- NOTE | 2020-02-21 09:58 | P.HP ---
Certification for Inpatient Patient admitted to: Inpatient With expected LOS: >2 Midnights Patient will require the following post-hospital care: None Practitioner: I am a practitioner with admitting privileges, knowledge of patient current condition, hospital course, and medical plan of care. Services: Services provided to patient in accordance with Admission requirements found in Title 42 Section 412.3 of the Code of Federal Regulations Patient History Date of Service: 02/20/20 Reason for admission: Acute CVA; aphasia; hypotension History of Present Illness: Patient is a 64-year-old female came to the hospital difficult to arouse and aphasic. Patient had been at hemodialysis and she became wide eyed and unable to respond what so ever. The family was there with her and she was not recognizing anyone in her family. They brought her into the emergency room. Patient was found have a blood pressure of 90-100 systolic over 50. Over the last few weeks her blood pressure had been running 200/100s. She had apparently run out of her blood pressure medicine for a few weeks. Whenever she went to dialysis they would give her a p.r.n. medication. She finally got her blood pressure meds yesterday morning. She took them all prior to dialysis. By the time she was in dialysis her blood pressure was already down to 110 systolic. This continued to dialyze her and at the end of dialysis is when her symptoms started. I think she had a sudden drop of her blood pressure. Allergies No Known Allergies Allergy (Verified 02/20/20 21:51) Home Medications: Aspirin [Aspirin EC 81 MG] 1 tab PO DAILY 02/21/20 Carvedilol [Coreg] 1 tab PO BID 02/21/20 Isosorbide Mononitrate [Isosorbide Mononitrate ER] 1 tab PO DAILY 02/21/20 Losartan Potassium [Cozaar] 1 tab PO DAILY 02/21/20 Nifedipine [Procardia Xl] 1 tab PO BID 02/21/20 Sucroferric Oxyhydroxide [Velphoro] 1 tab PO TID 02/21/20 - Past Medical/Surgical History Has patient received pneumonia vaccine in the past: Yes Diabetic: Yes -: Hypertension -: NIDDM -: ESRD - MWF -: Nonfuctioning LLE fistula -: Hyperlipidemia -: GERD -: Chronic ischemic heart disease -: Hyperparathyroidism -: anemia -: iron deficiency -: COVID-19 01/21/2020 -: Triple bypass 2016 -: Pacemaker -: Tubal ligation -: Fistula aneursym reconstruction 4 times -: Bilateral cataract surgery Psychosocial/ Personal History: Lives at home - Family History Mother Medical History: Heart disease - Social History Smoking Status: Never smoker Alcohol use: No CD- Drugs: No Caffeine use: No Place of Residence: Home Review of Systems 10-point ROS is otherwise unremarkable Physical Examination - Vital Signs Temperature: 97.8 F Blood Pressure: 171/68 Pulse: 64 Respirations: 18 Pulse Ox (%): 96 - Physical Exam General: Alert, In no apparent distress, Oriented x3 HEENT: Atraumatic, PERRLA, Mucous membr. moist/pink, EOMI, Sclerae nonicteric Neck: Supple, 2+ carotid pulse no bruit, No LAD, Without JVD or thyroid abnormality Respiratory: Clear to auscultation bilaterally, Normal air movement Cardiovascular: Regular rate/rhythm, Normal S1 S2 Gastrointestinal: Normal bowel sounds, Soft and benign, Non-distended, No tenderness Musculoskeletal: No clubbing, No swelling, No tenderness Integumentary: No rashes Neurological: Normal speech, Cranial nerves 3-12 intact, Normal affect, Abnormal gait, Abnormal speech, Abnormal strength Lymphatics: No axilla or inguinal lymphadenopathy - Studies Laboratory Data (last 24 hrs) 02/20/20 12:30: PT 11.9, INR 1.01, APTT 29.6 02/20/20 12:30: WBC 3.6 L, Hgb 12.5, Hct 37.0, Plt Count 112 L 02/20/20 12:30: Sodium 138, Potassium 3.6, BUN 13, Creatinine 2.92 H, Glucose 144 H Assessment & Plan - Problems (Diagnosis) (1) Acute CVA (cerebrovascular accident) Current Visit: Yes Status: Acute (2) History of hypertension Current Visit: No Status: Acute (3) End-stage renal disease on hemodialysis Current Visit: No Status: Chronic (4) Type 2 diabetes mellitus Current Visit: No Status: Chronic Qualifiers: (5) Uncontrolled hypertension Current Visit: No Status: Chronic - Plan Plan: 1. Continue monitoring hemodynamics closely 2. Neurology consultation 3. Patient with pacemaker and we cannot do a MRI so will repeat CT scan in 48 hr 4. Nephrology consultation for hemodialysis 5. Allow blood pressure to go back up. Patient's cerebral perfusion pressure was probably compromise with the sudden drop in her mean arterial pressure. At this time will slowly introduce her BP meds and bring blood pressure back up to systolic of at least 170. 6. COVID-19 testing at this time 7. GI and DVT prophylaxis Discharge Plan: Home Plan to discharge in: Greater than 2 days - Advance Directives Does patient have a Living Will: No Does patient have a Durable POA for Healthcare: No - Code Status/Comfort Care Code Status Assessed: Yes Code Status: Full Code Critical Care: No Time Spent Managing PTS Care (In Minutes): 45
[2020-02-21] MEDS: ASPIRIN EC 81 MG TAB PO SCH (10:00)
[2020-02-21] MEDS: CLOPIDOGREL 75 MG TABLET PO SCH (10:00)
[2020-02-21] MEDS: ENOXAPARIN 40 MG/0.4 ML SQ SCH (10:00)
--- NOTE | 2020-02-21 10:02 | P.PN ---
Subjective Date of Service: 02/21/20 COVID-19 testing has come back positive. Physical Examination - Vital Signs Temperature: 97.8 F Blood Pressure: 171/68 Pulse: 64 Respirations: 18 Pulse Ox (%): 96 - Studies Laboratory Data (last 24 hrs) 02/20/20 12:30: PT 11.9, INR 1.01, APTT 29.6 02/20/20 12:30: WBC 3.6 L, Hgb 12.5, Hct 37.0, Plt Count 112 L 02/20/20 12:30: Sodium 138, Potassium 3.6, BUN 13, Creatinine 2.92 H, Glucose 144 H Assessment & Plan - Problems (Diagnosis) (1) Acute CVA (cerebrovascular accident) Current Visit: Yes Status: Acute (2) History of hypertension Current Visit: No Status: Acute (3) End-stage renal disease on hemodialysis Current Visit: No Status: Chronic (4) Type 2 diabetes mellitus Current Visit: No Status: Chronic Qualifiers: (5) Uncontrolled hypertension Current Visit: No Status: Chronic - Plan Plan: 1. Continue monitoring hemodynamics closely 2. Neurology consultation 3. Patient with pacemaker and we cannot do a MRI so will repeat CT scan in 48 hr 4. Nephrology consultation for hemodialysis 5. Allow blood pressure to go back up. Patient's cerebral perfusion pressure was probably compromise with the sudden drop in her mean arterial pressure. At this time will slowly introduce her BP meds and bring blood pressure back up to systolic of at least 170. 6. COVID-19 testing at this time 7. GI and DVT prophylaxis - Advance Directives Does patient have a Living Will: No Does patient have a Durable POA for Healthcare: No - Code Status/Comfort Care Code Status: Full Code
[2020-02-21] MEDS ORDERED: HYDRALAZINE HCL 20 MG/ML VIAL IV ONE (11:30)
[2020-02-21] MEDS: FENTANYL CITR 100 MCG/2 ML IV PRN (14:16)
[2020-02-21] MEDS ORDERED: ISOSORBIDE MONO SR 30 MG TAB PO SCH (14:47)
--- NOTE | 2020-02-21 15:08 | ECHO ---
HEIGHT: 5 ft 3 in WEIGHT: 144 lb 8 oz DATE OF STUDY: 02/21/[address]: Ledy Argueta MD 2-DIMENSIONAL: YES M.MODE: YES DOPPLER: YES COLOR FLOW: YES TDS: NO PORTABLE: NO DEFINITY: NO BUBBLE STUDY: NO DIAGNOSIS: STROKE CARDIAC HISTORY: CATHERIZATION: YES SURGERY: YES PROSTHETIC VALVE: NO PACEMAKER: NO MEASUREMENTS (cm) DIASTOLIC (NORMALS) SYSTOLIC (NORMALS) IVSd 1.1 (0.6-1.2) LA Diam 3.6 (1.9-4.0) LVEF 50-55% LVIDd 4.8 (3.5-5.7) LVIDs 3.8 (2.0-3.5) %FS 20% LVPWd 1.1 (0.6-1.2) Ao Diam 2.8 (2.0-3.7) 2 DIMENSIONAL ASSESSMENT: RIGHT ATRIUM: NORMAL LEFT ATRIUM: NORMAL RIGHT VENTRICLE: NORMAL LEFT VENTRICLE: SEE BELOW TRICUSPID VALVE: MITRAL VALVE: PULMONIC VALVE: NORMAL AORTIC VALVE: NORMAL PERICARDIAL EFFUSION: NONE AORTIC ROOT: NORMAL LEFT VENTRICULAR WALL MOTION: NORMAL DOPPLER/COLOR FLOW: NORMAL COMMENTS: LOW NORMAL LEFT VENTRICULAR EJECTION FRACTION 50-55% WITH MILD GLOBAL HYPOKINESIS. DIASTOLIC DYSFUNCTION. MILD PULMONARY HYPERTENSION WITH RIGHT VENTRICULAR SYSTOLIC PRESSURE OF 35-40 mmHg. TECHNOLOGIST: Amelia GROVES
[2020-02-21] MEDS ORDERED: carvediloL 25 MG TAB PO ONE (16:00)
[2020-02-21] MEDS ORDERED: ISOSORBIDE MONO SR 30 MG TAB PO ONE (16:00)
[2020-02-21] MEDS: ATORVASTATIN 40 MG TAB PO SCH (20:11)
[2020-02-21] MEDS: NIFEDIPINE XL 60 MG TABLET PO SCH (20:12)
[2020-02-22] MEDS ORDERED: HYDRALAZINE HCL 20 MG/ML VIAL IV ONE (00:34)
[2020-02-22 00:41] VITALS: O2SAT 95
[2020-02-22 05:51] VITALS: BMI 25.4
[2020-02-22] MEDS: ASPIRIN EC 81 MG TAB PO SCH (08:29)
[2020-02-22] MEDS: CLOPIDOGREL 75 MG TABLET PO SCH (08:30)
[2020-02-22] MEDS ORDERED: ISOSORBIDE MONO SR 30 MG TAB PO SCH (09:00)
[2020-02-22] MEDS ORDERED: ENOXAPARIN 30 MG/0.3 ML SQ SCH (09:00)
--- NOTE | 2020-02-22 09:52 | RAD REPORT ---
EXAM DESCRIPTION: CT - Head Brain Wo Cont - 02/22/2020 9:28 am CLINICAL HISTORY: r/o syncope with aphasia and weakness/ Headache, drowsiness, syncope COMPARISON: Ct Stroke Brain Wo Cont dated 02/20/2020; Head Brain Wo Cont dated 10/22/2019 TECHNIQUE: All CT scans are performed using dose optimization technique as appropriate and may inclu de automated exposure control or mA/KV adjustment according to patient size. FINDINGS: No intracranial hemorrhage, hydrocephalus or extra-axial fluid collection.Mild periventric ular chronic microvascular ischemic changes.No areas of brain edema or evidence of midline shift. The paranasal sinuses and mastoids are clear. The calvarium is intact. IMPRESSION: No acute intracranial abnormality.
--- NOTE | 2020-02-22 09:54 | P.CNS ---
Date of Consult: 02/22/20 Reason for Consult: ESRD , fluid and ecletolytes management Chief Complaint: Acute CVA; aphasia; hypotension History of Present Illness: A 64-year-old woman with PMHX of ESRD on HD MWF , DM, HTN , and COVID 19 in 01/2020 pt was sent from dialysis unit for being unresponsive pt with HX of High Bp , last weeks she run out of meds , and start taking them recently in R pt was unresponsive , noticed then to be aphasix , with SBP 90-100 Ct scan with no significant findings now AAOx3, no focal weakness Review of Systems: Head and Neck: No red eye. No ear pain. GI: No nausea, no vomiting. : No polyuria, no dysuria, no hematuria. 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 Respiratory: No shortness of breath. Cardiovascular: No chest pain. Endocrine: No polydipsia. Skin: No rash. Neuro: AAOx3,no focal weakness, Musculoskeletal: No back pain . Physical exam general: AAOX3, in mild distress Neck; Supple, No elevated JVD hear: RRR, normal S1,2 no murmur or rub Chest: CTAB, no rales or wheezes Abdomen: Soft , Nt Extremities No edema or ulcer ESRD on HD MWF Pt can resume dialysis tomorrow as AN OP , no urgent need for HD today renal dose meds CVA/ TIA possibly due to acute Drop in BP Now AAOX3, no focal weakness HTN BP controlled now DM as pe primary pt can be discharged today from nephrology point of view to resume HD tomorrow as an op Allergies No Known Allergies Allergy (Verified 02/20/20 21:51) Home Medications: Aspirin [Aspirin EC 81 MG] 1 tab PO DAILY 02/21/20 Carvedilol [Coreg] 1 tab PO BID 02/21/20 Isosorbide Mononitrate [Isosorbide Mononitrate ER] 1 tab PO DAILY 02/21/20 Losartan Potassium [Cozaar] 1 tab PO DAILY 02/21/20 Nifedipine [Procardia Xl] 1 tab PO BID 02/21/20 Sucroferric Oxyhydroxide [Velphoro] 1 tab PO TID 02/21/20 - Past Medical/Surgical History Diabetic: Yes -: Hypertension -: NIDDM -: ESRD - MWF -: Nonfuctioning LLE fistula -: Hyperlipidemia -: GERD -: Chronic ischemic heart disease -: Hyperparathyroidism -: anemia -: iron deficiency -: COVID-19 01/21/2020 -: Triple bypass 2016 -: Pacemaker -: Tubal ligation -: Fistula aneursym reconstruction 4 times -: Bilateral cataract surgery Psychosocial/ Personal History: Lives at home - Family History Mother Medical History: Heart disease - Social History Alcohol use: No CD- Drugs: No Caffeine use: No Place of Residence: Home Physical Examination Temp Pulse Resp BP Pulse Ox 98.0 F 60 21 H 123/54 L 95 02/22/20 04:00 02/22/20 04:00 02/22/20 04:00 02/22/20 04:00 02/22/20 04:00
[2020-02-22] MEDS ORDERED: INFLUENZA VACCINE (for 3y+) 0.5 ML DOSE IMVAC ONE (10:00)
[2020-02-22] MEDS ORDERED: HYDROCODONE/APAP 5/325 MG TAB PO ONE (11:20)
[2020-02-22] MEDS: NIFEDIPINE XL 60 MG TABLET PO SCH (12:06)
[2020-02-22] MEDS ORDERED: ACETAMIN/CAFFEINE/BUTALB TAB PO ONE (12:15)
--- NOTE | 2020-02-22 14:11 | P.DS ---
Discharge Date: 02/22/20 Disposition: ROUTINE DISCHARGE Discharge Condition: GOOD Reason for Admission: Acute CVA; aphasia; hypotension - Problems (1) Acute CVA (cerebrovascular accident) Current Visit: Yes Status: Acute (2) History of hypertension Current Visit: No Status: Acute (3) End-stage renal disease on hemodialysis Current Visit: No Status: Chronic (4) Type 2 diabetes mellitus Current Visit: No Status: Chronic Qualifiers: (5) Uncontrolled hypertension Current Visit: No Status: Chronic Brief History of Present Illness: Patient is a 64-year-old female came to the hospital difficult to arouse and aphasic. Patient had been at hemodialysis and she became wide eyed and unable to respond what so ever. The family was there with her and she was not recognizing anyone in her family. They brought her into the emergency room. Patient was found have a blood pressure of 90-100 systolic over 50. Over the last few weeks her blood pressure had been running 200/100s. She had apparently run out of her blood pressure medicine for a few weeks. Whenever she went to dialysis they would give her a p.r.n. medication. She finally got her blood pressure meds yesterday morning. She took them all prior to dialysis. By the time she was in dialysis her blood pressure was already down to 110 systolic. This continued to dialyze her and at the end of dialysis is when her symptoms started. I think she had a sudden drop of her blood pressure. Hospital Course: Patient's workup was unremarkable. CT scan was negative. Patient is doing better and blood pressure is controlled. Patient does have an occasional headache which we gave her fioricet. At this time, patient is stable for discharge with outpatient follow-up. Vital Signs/Physical Exam: Temp Pulse Resp BP Pulse Ox 97.1 F 60 22 H 154/70 H 99 02/22/20 12:00 02/22/20 12:00 02/22/20 12:00 02/22/20 12:00 02/22/20 12:00 General: Alert, In no apparent distress, Oriented x3 Laboratory Data at Discharge: WBC 2.7 K/uL (4.3-10.9) L D 02/21/20 04:12 Hgb 10.8 g/dL (12.0-15.0) L 02/21/20 04:12 Hct 32.9 % (36.0-45.0) L 02/21/20 04:12 Plt Count 94 K/uL (152-406) L 02/21/20 04:12 PT 12.6 SECONDS (9.5-12.5) H 02/21/20 04:12 INR 1.07 02/21/20 04:12 APTT 37.4 SECONDS (24.3-36.9) H 02/21/20 04:12 Sodium 138 mmol/L (136-145) 02/21/20 04:12 Potassium 4.0 mmol/L (3.5-5.1) 02/21/20 04:12 BUN 18 mg/dL (7-18) 02/21/20 04:12 Creatinine 4.19 mg/dL (0.55-1.3) H D 02/21/20 04:12 Glucose 95 mg/dL (74-106) 02/21/20 04:12 Phosphorus 4.0 mg/dL (2.5-4.9) 02/21/20 04:12 Magnesium 2.3 mg/dL (1.8-2.4) 02/21/20 04:12 Total Bilirubin 0.7 mg/dL (0.2-1.0) 02/21/20 04:12 AST 37 U/L (15-37) 02/21/20 04:12 ALT 52 U/L (12-78) 02/21/20 04:12 Alkaline Phosphatase 121 U/L (45-117) H 02/21/20 04:12 Triglycerides 141 mg/dL (<150) 02/21/20 04:12 Cholesterol 192 mg/dL (<200) 02/21/20 04:12 HDL Cholesterol 47 mg/dL (40-60) 02/21/20 04:12 Cholesterol/HDL Ratio 4.09 02/21/20 04:12 Home Medications: Aspirin [Aspirin EC 81 MG] 1 tab PO DAILY 02/21/20 Isosorbide Mononitrate [Isosorbide Mononitrate ER] 1 tab PO DAILY 02/21/20 Nifedipine [Procardia Xl] 1 tab PO BID 02/21/20 Sucroferric Oxyhydroxide [Velphoro] 1 tab PO TID 02/21/20 Atorvastatin Calcium [Lipitor] 40 mg PO BEDTIME #30 tab 02/22/20 Butalb/Acetaminophen/Caffeine [Fioricet 50-300-40 mg Capsule] 1 each PO Q12H PRN #30 capsule 02/22/20 Clopidogrel Bisulfate [Plavix*] 75 mg PO DAILY #30 tablet 02/22/20 New Medications: Butalb/Acetaminophen/Caffeine [Fioricet 50-300-40 mg Capsule] 1 each PO Q12H PRN #30 capsule PRN Reason: HEADACHE Atorvastatin Calcium [Lipitor] 40 mg PO BEDTIME #30 tab Clopidogrel Bisulfate [Plavix*] 75 mg PO DAILY #30 tablet Patient Discharge Instructions: OK TO DC IV AND DC HOME. FOLLOW-UP WITH PRIMARY CARE PROVIDER IN 1-2 WEEKS. FOLLOW-UP WITH NEPHROLOGY FOR HEMODIALYSIS AND PULMONARY IN 1-2 WEEKS. RETURN TO THE ER IF SYMPTOMS WORSEN. CALL or TEXT DR. FUNG AT [phone] IF ANY QUESTIONS REGARDING HOSPITAL STAY. PLEASE CALL THE FLOOR AT [phone] IF ANY MEDICATION OR NURSING QUESTIONS. Diet: Renal Activity: Fall precautions Followup: Unknown,U [Primary Care Provider] - Time spent managing pt's care (in minutes): 35
[2020-02-26 04:41] VITALS: BP 171/68; TEMP 97.8
== END 2020-02-22 14:20 | disposition home or self-care (01) | DRG 64 ==
LOC: ER 12:05 → ERHOLD 15:03 → 2ND 20:29 → 3RD-ICU 02-21 20:25
PROVIDERS: ADMIT Hospitalist; ATTEND Hospitalist
DX: I63.9 Cerebral infarction, unspecified (principal); N18.6 End stage renal disease; U07.1 COVID-19; I12.0 Hypertensive chronic kidney disease with stage 5 chronic kidney disease or end stage renal disease; R47.01 Aphasia; E11.22 Type 2 diabetes mellitus with diabetic chronic kidney disease; E78.5 Hyperlipidemia, unspecified; K21.9 Gastro-esophageal reflux disease without esophagitis; I25.2 Old myocardial infarction; R40.2240 Coma scale, best verbal response, confused conversation, unspecified time; R40.2360 Coma scale, best motor response, obeys commands, unspecified time; R40.2140 Coma scale, eyes open, spontaneous, unspecified time; R29.701 NIHSS score 1; Z79.82 Long term (current) use of aspirin; Z79.899 Other long term (current) drug therapy; Z99.2 Dependence on renal dialysis; Z95.1 Presence of aortocoronary bypass graft; Z79.02 Long term (current) use of antithrombotics/antiplatelets; Z98.51 Tubal ligation status
CPT/HCPCS: 36415; 70450; 71045; 74176; 80048; 80053; 80061; 82550; 82947; 83735; 84100; 84436; 84443; 84484; 85025; 85610; 85730; 92610; 93005; 93306; 96365; 96366; 96367; 96375; 97116; 97161; 99285; J0360; J1650; J2270; J2405; J3010; J7050; U0003

== ENCOUNTER 2020-07-14 11:08 | Inpatient (IN) | payer MEDICARE, OTHER ==
--- OUTSIDE RECORDS SUMMARY | 2020-07-14 11:10 | XMS REPORT | Continuity of Care Document ---
:1955 Author Organization [facility] t Address [address] [place] [address] [address]. [address] [place] [address] Care Team Providers Name Role Phone Kim WHITE Attending Clinician Problems This patient has no known problems. Allergies, Adverse Reactions, Alerts This patient has no known allergies or adverse reactions. Social History Social Habit Start Date Stop Date Quantity Comments Source Sex Assigned At [facility] Medications This patient has no known medications. Procedures This patient has no known procedures. Encounters Start End Encounter Admission Attending Care Care Encounter Source Date/Time Date/Time Type Type Clinicians Facility Department ID 2018-09-18 Outpatient [facility] [id number] MH 08:26:04 2020-04-16 2020-04-16 Office JOSAFAT Alvarez [id number] 12:56:21 13:26:21 Visit Pascale Roberts [id number] [facility] [id number] [place] [id number] [address] 2018-01-22 2018-01-22 Emergency [facility] [id number] MH 16:17:00 16:17:00 [facility] Results This patient has no known results.
--- NOTE | 2020-07-14 12:05 | RAD REPORT ---
EXAM DESCRIPTION: Samuel Single View07/14/2020 11:44 am CLINICAL HISTORY: Chest pain COMPARISON: 2019 FINDINGS: The lungs appear clear of acute infiltrate. The heart is mildly to moderately enlarged. P acemaker leads are in place. Postsurgical changes involve chest IMPRESSION: No acute abnormalities displayed
--- NOTE | 2020-07-14 12:24 | ER ---
Nurse's Notes [facility] Name: Qiana Valdez Age: 64 yrs Sex: Female : 1955 Arrival Date: 07/14/2020 Time: 11:18 Bed 17 Private MD: Diagnosis: Chest pain, unspecified;Angina pectoris;End stage renal disease-on HD Presentation: 07/14 11:19 Chief complaint: EMS states: CHEST PAIN DURING DIALYSIS. Coronavirus screen: At this bp time, the client does not indicate any symptoms associated with coronavirus-19. Ebola Screen: No symptoms or risks identified at this time. Initial Sepsis Screen: Does the patient meet any 2 criteria? No. Patient's initial sepsis screen is negative. Does the patient have a suspected source of infection? No. Patient's initial sepsis screen is negative. Risk Assessment: Do you want to hurt yourself or someone else? Patient reports no desire to harm self or others. Onset of symptoms was July 14, 2020 at 10:00. Care prior to arrival: Medication(s) given: ASA, 81 mg, x 4, Nitroglycerin, 0.4 mg SL x 2. 11:19 Method Of Arrival: EMS: [facility] bp 11:19 Acuity: SIXTO 3 bp Triage Assessment: 11:22 General: Appears distressed, uncomfortable, Behavior is cooperative, appropriate for bp age, anxious. Pain: Complains of pain in chest. EENT: No deficits noted. Neuro: No deficits noted. Cardiovascular: Reports chest pain. Respiratory: No deficits noted. GI: No signs and/or symptoms were reported involving the gastrointestinal system. : No signs and/or symptoms were reported regarding the genitourinary system. Derm: No deficits noted. Musculoskeletal: No deficits noted. Historical: - Allergies: 11:22 No Known Allergies; bp - Home Meds: 11:22 aspirin 81 mg Oral chew 1 tab once daily [Active]; atorvastatin 40 mg Oral tab 1 tab bp once daily [Active]; carvedilol 12.5 mg Oral tab 1 tab 2 times per day [Active]; hydralazine 50 mg Oral tab 1 tab 2 times per day [Active]; Lactulose 30 gm daily until bowels move and then stop taking prn Oral [Active]; losartan 100 mg Oral tab 1 tab twice a day [Active]; metoclopramide HCl 5 mg Oral tab 1 tab 4 times per day [Active]; Nifedipine ER Oral 60 mg twice a day [Active]; pantoprazole 40 mg Oral TbEC 1 tab once daily [Active]; Plavix 75 mg Oral tab 1 tab once daily [Active]; Senexon 8.6 mg Oral tab twice a day [Active]; - PMHx: 11:22 Chronic ischemic heart disease; Diabetes - IDDM; DIALYSIS MWF; ESRD; GERD; High bp Cholesterol; hyperparathyroidism; Hypertension; IRON DEFICIENCY ANEMIA; Myocardial infarction; Pacemaker; - Immunization history:: Adult Immunizations up to date. - Social history:: Smoking status: Patient denies any tobacco usage or history of. - Family history:: not pertinent. Screenin:23 Abuse screen: Denies threats or abuse. Denies injuries from another. Nutritional bp screening: No deficits noted. Tuberculosis screening: No symptoms or risk factors identified. Fall Risk None identified. Assessment: 11:23 General: SEE TRIAGE NOTE. bp 12:30 Reassessment: No changes from previously documented assessment. Patient and/or family bp updated on plan of care and expected duration. Pain level reassessed. Patient is alert, oriented x 3, equal unlabored respirations, skin warm/dry/pink. ADMIT INITIATED. TUBE ROOM CASHIER PENDING. 13:00 Reassessment: No changes from previously documented assessment. Patient and/or family bp updated on plan of care and expected duration. Pain level reassessed. DR OCONNOR AT B/S. TUBE ROOM CASHIER PENDING AFTER CURRENT CASE. 13:07 Reassessment: Dr. Oconnor order to d/c Heparin drip. iw 14:15 Reassessment: No changes from previously documented assessment. Patient and/or family bp updated on plan of care and expected duration. Pain level reassessed. PT PENDING TUBE ROOM CASHIER. 14:27 Reassessment: TUBE ROOM CASHIER AT B/S. bp Vital Signs: 11:19 BP 150 / 60; Pulse 65; Resp 16; Temp 97.6; Pulse Ox 100% ; Weight 70 kg; bp 12:30 BP 153 / 63; Pulse 60; Resp 12; Pulse Ox 96% on R/A; bp 13:00 BP 152 / 62; Pulse 60; Resp 12; Pulse Ox 95% ; bp 14:00 BP 175 / 69; Pulse 60; Resp 16; Pulse Ox 100% ; bp ED Course: 11:18 Patient arrived in ED. bp 11:19 Duane Singh MD is Attending Physician. ford 11:20 Triage completed. bp 11:22 Arm band placed on. bp 11:23 Patient has correct armband on for positive identification. Bed in low position. Call bp light in reach. Side rails up X2. telemetry monitor on. Pulse ox on. NIBP on. 11:28 Koffi Dubose, RN is Primary Nurse. bp 11:41 Magnesium Sent. mh5 11:41 NT PRO-BNP Sent. 5 11:41 PT-INR Sent. [facility] 11:41 Troponin (emerg Dept Use Only) Sent. [facility] 11:41 Initial lab(s) drawn, by me, sent to lab. EKG done, by ED staff, reviewed by Duane Singh MD. Maintain EMS IV. Dressing intact. Site clean \\T\\ dry. 11:42 Placed in gown. Warm blanket given. mh5 11:44 XRAY Chest (1 view) In Process Unspecified. EDMS 12:16 Kalyan Lennon is Hospitalizing Provider. [facility] 13:25 COVID-19 : Document "Date of Symptom Onset" if Symptomatic. Sent. [facility] 13:25 COVID swab sent to lab. [facility] 14:27 No provider procedures requiring assistance completed. Patient admitted, IV remains in bp place. Patient maintains SpO2 saturation greater than 95% on room air. Administered Medications: 11:30 Drug: NS 0.9% 1000 ml Route: IV; Rate: 125 ml/hr; Site: right antecubital; bp 12:56 Follow up: IV Status: Infusion continued upon admission bp 11:57 Not Given (Duplicate Order): Aspirin Chewable Tablet 162 mg PO once bp 12:25 Drug: morphine 2 mg Route: IVP; Site: left antecubital; bp 12:56 Follow up: Response: Pain is decreased bp 12:25 Drug: Zofran (Ondansetron) 4 mg Route: IVP; Site: left antecubital; bp 12:56 Follow up: Response: No adverse reaction bp 12:25 Drug: Heparin (NM Drip) 12 units/kg/hr - (HEParin 06701 units, D5W 500 ml) bp {Co-Signature: [id number] (Pranay Coronel RN).} Route: IV; Rate: calculated rate; Site: left antecubital; Outcome: 12:24 Decision to Hospitalize by Provider. ford 14:27 Admitted to Sales Analyst bp 14:27 Condition: stable 14:27 Instructed on the need for admit. 15:08 Patient left the ED. bp Signatures: Dispatcher [employer] EDDuane Bird MD MD cha Williams, Irene, RN RN iw Martinez, Maria [facility] Koffi Dubose RN RN bp Pranay Coronel RN [email or web address] Corrections: (The following items were deleted from the chart) 12:57 11:19 BP 150 / 60; Pulse 65bpm; Resp 16bpm; Pulse Ox 100%; Temp 97.6F; bp bp
--- NOTE | 2020-07-14 12:24 | EDPHYS ---
Physician Documentation [facility] Name: Qiana Valdez Age: 64 yrs Sex: Female : 1955 Arrival Date: 07/14/2020 Time: 11:18 Bed 17 Private MD: WILFRIDO Physician Duane Singh HPI: 07/14 12:12 This 64 yrs old Female presents to ER via EMS with complaints of Chest Pain. ford 12:12 The patient or guardian reports chest pain that is located primarily in the substernal ford area. Onset: just prior to arrival. The pain does not radiate. Associated signs and symptoms: Pertinent positives: shortness of breath. The chest pain is described as a heaviness, a pressure. Duration: The patient or guardian reports a single episode, that is still ongoing. Modifying factors: The symptoms are alleviated by nothing. the symptoms are aggravated by nothing. Severity of pain: At its worst the pain was mild moderate in the emergency department the pain is unchanged. The patient has not experienced similar symptoms in the past. Historical: - Allergies: 11:22 No Known Allergies; bp - Home Meds: 11:22 aspirin 81 mg Oral chew 1 tab once daily [Active]; atorvastatin 40 mg Oral tab 1 tab bp once daily [Active]; carvedilol 12.5 mg Oral tab 1 tab 2 times per day [Active]; hydralazine 50 mg Oral tab 1 tab 2 times per day [Active]; Lactulose 30 gm daily until bowels move and then stop taking prn Oral [Active]; losartan 100 mg Oral tab 1 tab twice a day [Active]; metoclopramide HCl 5 mg Oral tab 1 tab 4 times per day [Active]; Nifedipine ER Oral 60 mg twice a day [Active]; pantoprazole 40 mg Oral TbEC 1 tab once daily [Active]; Plavix 75 mg Oral tab 1 tab once daily [Active]; Senexon 8.6 mg Oral tab twice a day [Active]; - PMHx: 11:22 Chronic ischemic heart disease; Diabetes - IDDM; DIALYSIS MWF; ESRD; GERD; High bp Cholesterol; hyperparathyroidism; Hypertension; IRON DEFICIENCY ANEMIA; Myocardial infarction; Pacemaker; - Immunization history:: Adult Immunizations up to date. - Social history:: Smoking status: Patient denies any tobacco usage or history of. - Family history:: not pertinent. ROS: 12:12 Constitutional: Negative for fever, chills, and weight loss, Eyes: Negative for injury, ford pain, redness, and discharge, ENT: Negative for injury, pain, and discharge, Neck: Negative for injury, pain, and swelling, Respiratory: Negative for shortness of breath, cough, wheezing, and pleuritic chest pain, Abdomen/GI: Negative for abdominal pain, nausea, vomiting, diarrhea, and constipation, Back: Negative for injury and pain, : Negative for injury, bleeding, discharge, and swelling, MS/Extremity: Negative for injury and deformity, Skin: Negative for injury, rash, and discoloration, Neuro: Negative for headache, weakness, numbness, tingling, and seizure, Psych: Negative for depression, anxiety, suicide ideation, homicidal ideation, and hallucinations, Allergy/Immunology: Negative for hives, rash, and allergies, Endocrine: Negative for neck swelling, polydipsia, polyuria, polyphagia, and marked weight changes, Hematologic/Lymphatic: Negative for swollen nodes, abnormal bleeding, and unusual bruising. 12:12 Cardiovascular: Positive for chest pain, of the chest. Exam: 12:12 Constitutional: This is a well developed, well nourished patient who is awake, alert, ford and in no acute distress. Head/Face: Normocephalic, atraumatic. Eyes: Pupils equal round and reactive to light, extra-ocular motions intact. Lids and lashes normal. Conjunctiva and sclera are non-icteric and not injected. Cornea within normal limits. Periorbital areas with no swelling, redness, or edema. ENT: Nares patent. No nasal discharge, no septal abnormalities noted. Tympanic membranes are normal and external auditory canals are clear. Oropharynx with no redness, swelling, or masses, exudates, or evidence of obstruction, uvula midline. Mucous membranes moist. Neck: Trachea midline, no thyromegaly or masses palpated, and no cervical lymphadenopathy. Supple, full range of motion without nuchal rigidity, or vertebral point tenderness. No Meningismus. Chest/axilla: Normal chest wall appearance and motion. Nontender with no deformity. No lesions are appreciated. Cardiovascular: Regular rate and rhythm with a normal S1 and S2. No gallops, murmurs, or rubs. Normal PMI, no JVD. No pulse deficits. Respiratory: Lungs have equal breath sounds bilaterally, clear to auscultation and percussion. No rales, rhonchi or wheezes noted. No increased work of breathing, no retractions or nasal flaring. Abdomen/GI: Soft, non-tender, with normal bowel sounds. No distension or tympany. No guarding or rebound. No evidence of tenderness throughout. Back: No spinal tenderness. No costovertebral tenderness. Full range of motion. Female : Normal external genitalia. Skin: Warm, dry with normal turgor. Normal color with no rashes, no lesions, and no evidence of cellulitis. MS/ Extremity: Pulses equal, no cyanosis. Neurovascular intact. Full, normal range of motion. Neuro: Awake and alert, GCS 15, oriented to person, place, time, and situation. Cranial nerves II-XII grossly intact. Motor strength 5/5 in all extremities. Sensory grossly intact. Cerebellar exam normal. Normal gait. Psych: Awake, alert, with orientation to person, place and time. Behavior, mood, and affect are within normal limits. Vital Signs: 11:19 BP 150 / 60; Pulse 65; Resp 16; Temp 97.6; Pulse Ox 100% ; Weight 70 kg; bp 12:30 BP 153 / 63; Pulse 60; Resp 12; Pulse Ox 96% on R/A; bp 13:00 BP 152 / 62; Pulse 60; Resp 12; Pulse Ox 95% ; bp 14:00 BP 175 / 69; Pulse 60; Resp 16; Pulse Ox 100% ; bp MDM: 11:20 Patient medically screened. ford 12:14 Differential diagnosis: abnormal EKG, acute myocardial infarction, congestive heart ford failure Cholelithiasis esophagitis, gastritis, gastroesophageal reflux disease (GERD), hiatal hernia, pancreatitis, peptic ulcer disease, pericarditis, pneumonia, pulmonary embolus, stable angina, unstable angina. HEART Score: ECG: Significant ST-deviation (2), Age: > 45 and < 65 years (1), Risk Factors: > or = 3 Risk factors for atherosclerotic disease (2), [Hypercholesterolemia] [Hypertension] [DM] [+ Family HX] Troponin: < or = 1 x Normal Limit (0). The patient was given aspirin in the Emergency Department. The patient's deep vein thrombosis risk score was calculated as follows: Total Score: 0. This patient was found to be at low risk for a deep vein thrombosis by using the Well's assessment criteria. The patient's pulmonary embolism risk score was calculated as follows: Total Score: 0-2 points. This patient was found to be at low risk for a pulmonary embolism by using the Well's assessment criteria. CAPRI Risk Score: 1 - Three or more CAD risk factors, 1 - ASA use in past 7 days, 1 - ST deviation >0.5mm, TOTAL SCORE = 3. Data reviewed: vital signs, nurses notes, lab test result(s), EKG, radiologic studies, plain films. Data interpreted: teletypesetter monitor: rate is 65 beats/min, rhythm is normal sinus rhythm, regular, with no ectopy, Pulse oximetry: on room air is 65 %. Test interpretation: by ED physician or midlevel provider: ECG, plain radiologic studies. Counseling: I had a detailed discussion with the patient and/or guardian regarding: the historical points, exam findings, and any diagnostic results supporting the discharge/admit diagnosis, the presence of at least one elevated blood pressure reading (>120/80) during this emergency department visit, lab results, radiology results, the need for further work-up and treatment in the hospital. 07/14 11:20 Order name: Basic Metabolic Panel; Complete Time: 13: [facility] 07/14 11:20 Order name: CBC with Diff; Complete Time: 13: [facility] 07/14 11:20 Order name: LFT's; Complete Time: 13: [facility] 07/14 11:20 Order name: Magnesium; Complete Time: 13: [facility] 07/14 11:20 Order name: NT PRO-BNP; Complete Time: 13:09 [facility] 07/14 11:20 Order name: PT-INR; Complete Time: 12:54 [facility] 07/14 11:20 Order name: Troponin (emerg Dept Use Only); Complete Time: 13:09 [facility] 07/14 11:20 Order name: XRAY Chest (1 view); Complete Time: 12:54 [facility] 07/14 11:20 Order name: Lipase; Complete Time: 13: [facility] 07/14 12:40 Order name: CBC Smear Scan; Complete Time: 13:09 [facility] 07/14 12:46 Order name: COVID-19 : Document "Date of Symptom Onset" if Symptomatic. 07/14 14:09 Order name: SARS-COV-2 RT PCR; Complete Time: 19:14 [facility] 07/14 11:20 Order name: EKG; Complete Time: 11: [facility] 07/14 11:20 Order name: Cardiac monitoring; Complete Time: 11: [facility] 07/14 11:20 Order name: EKG - Nurse/Tech; Complete Time: 11:41 [facility] 07/14 11:20 Order name: IV Saline Lock; Complete Time: : [facility] 07/14 11:20 Order name: Labs collected and sent; Complete Time: : [facility] 07/14 11:20 Order name: O2 Per Protocol; Complete Time: 11: [facility] 07/14 11:20 Order name: O2 Sat Monitoring; Complete Time: 11: [facility] 07/14 11:58 Order name: Labs - recollect needed: recollect c7 and pt,ptt. ; Complete Time: 12:56 bd Administered Medications: 11:30 Drug: NS 0.9% 1000 ml Route: IV; Rate: 125 ml/hr; Site: right antecubital; bp 12:56 Follow up: IV Status: Infusion continued upon admission bp 11:57 Not Given (Duplicate Order): Aspirin Chewable Tablet 162 mg PO once bp 12:25 Drug: morphine 2 mg Route: IVP; Site: left antecubital; bp 12:56 Follow up: Response: Pain is decreased bp 12:25 Drug: Zofran (Ondansetron) 4 mg Route: IVP; Site: left antecubital; bp 12:56 Follow up: Response: No adverse reaction bp 12:25 Drug: Heparin (UT Drip) 12 units/kg/hr - (HEParin 43797 units, D5W 500 ml) bp {Co-Signature: [id number] (Pranay Coronel RN).} Route: IV; Rate: calculated rate; Site: left antecubital; Disposition: 07/14/20 12:24 Hospitalization ordered by Kalyan Lennon for Inpatient Admission. Preliminary diagnosis are Chest pain, unspecified, Angina pectoris, End stage renal disease - on HD. - Bed requested for Telemetry/MedSurg (Inpatient). - Status is Inpatient Admission. bp - Condition is Stable. - Problem is new. - Symptoms have improved. Signatures: Dispatcher [employer] EDSarah Sky Corey, MD MD cha Attema, Lee, SKEIN INSPECTOR-C SKEIN INSPECTOR-Cla1 Koffi Dubose RN RN bp Pranay Coronel RN [id number] Corrections: (The following items were deleted from the chart) 15:08 12:24 Hospitalization Ordered by Kalyan Lennon for Inpatient Admission. Preliminary bp diagnosis is Chest pain, unspecified; Angina pectoris; End stage renal disease - on HD. Bed requested for Telemetry/MedSurg (Inpatient). Status is Inpatient Admission. Condition is Stable. Problem is new. Symptoms have improved. ford
[2020-07-14 12:34] LABS: Protime INR 0.98
[2020-07-14 12:38] LABS: Absolute Lymphocytes (CBC) 0.7 K/uL (0.7-4.9); Basophils % 1.6 % (0-1.3); Lymphocytes % 24.6 % (15.3-44.8); MPV 9.4 fL (7.6-11.3)
[2020-07-14] MEDS ORDERED: HEPARIN/D5W 25,000 UNIT/500 ML BAG IV ONE (12:38)
[2020-07-14] MEDS ORDERED: ONDANSETRON 4 MG/2 ML VIAL ONE (12:38)
[2020-07-14] MEDS ORDERED: MORPHINE 2 MG/ML SYR ONE (12:38)
[2020-07-14 13:04] LABS: Blood Morphology Comment NOT SEEN (NOT SEEN); Platelet Estimate DECR; White Blood Cell Scan OK (OK)
[2020-07-14 13:08] LABS: Albumin 3.3 g/dL (3.4-5.0); Bilirubin Direct 0.1 mg/dL (0-0.2); Bilirubin Total 0.4 mg/dL (0.2-1.0); Magnesium 2.3 mg/dL (1.8-2.4); Troponin (Emerg Dept Use Only) 0.17 ng/mL (0.0-0.045)
[2020-07-14] MEDS ORDERED: HEPA 1000U/500MLS 2,000 UNIT/1,000 ML BAG IV ONE (13:47)
[2020-07-14] MEDS ORDERED: LIDOCAINE 1% 20 ML MDV ONE (13:48)
[2020-07-14] MEDS ORDERED: ATROPINE SULF 1 MG/10 ML SYR IV ONE (14:23)
[2020-07-14] MEDS ORDERED: FENTANYL CITR 100 MCG/2 ML ONE (14:24)
[2020-07-14] MEDS ORDERED: MIDAZOLAM HCL 2 MG/2 ML INJ ONE (14:24)
[2020-07-14] MEDS ORDERED: HEPARIN 10,000 UNIT/10 ML VIAL IV ONE (14:34)
[2020-07-14] MEDS ORDERED: NA CHLORIDE 0.9% 500 ML ONE (14:57)
[2020-07-14] MEDS ORDERED: CLOPIDOGREL 75 MG TABLET ONE (15:32)
[2020-07-14] MEDS ORDERED: HEPA 1000U/500MLS 1,000 UNIT/500 ML BAG IV ONE (15:44)
[2020-07-14] MEDS ORDERED: ACETAMINOPHEN 325 MG TABLET PO PRN (17:20)
[2020-07-14] MEDS ORDERED: NITROGLYCERIN 0.4 MG/TAB SL PRN ×2 (17:21→21:40)
[2020-07-14] MEDS ORDERED: NA CHLORIDE 0.9% 1,000 ML IV SCH (18:00)
--- NOTE | 2020-07-14 19:38 | CON ---
Date of Consultation: 07/14/2020 Reason For Consultation: Chest pain. History Of Present Illness: This is a middle-aged female with history of end-stage renal disease, on hemodialysis, hypertension, diabetes, coronary artery disease status post triple-vessel bypass, come s in with chest pain after having dialysis today, retrosternal, pressure-like, 8/10 with nausea, no r adiation. Has been having chest pain very frequently with minimal activities at home. Past Medical History: As outlined above in HPI. Medications: Refer to reconciliation sheet for detailed list. Allergies: NO KNOWN DRUG ALLERGIES. Family History: No premature coronary artery disease or cancer. Social History: Does not smoke or drink. Does not use any drugs. Review of Systems: All systems reviewed and negative except as mentioned in the HPI. Physical Examination: Vital Signs: Temperature is 97.7, pulse is 60, breathing 18, blood pressure 161/61, saturating 94% o n room air. General: Pleasant middle-aged female, in no apparent distress. Head and Neck: Pupils are equal, reactive to light. Intact eye movements. No JVD. No cervical lym phadenopathy. Neck: Supple. Thyroid is not enlarged. Lungs: Clear to auscultation bilaterally. No rhonchi, rales, or crackles. No accessory muscle use. Heart: Regular rate and rhythm. No extra sounds. Abdomen: Soft, nontender. Bowel sounds positive. No organomegaly. No masses or hernia. No rigidi ty or rebound. Extremities: No edema, clubbing, or cyanosis. Intact pulses. Skin: No rash noted. Neurologic: Alert, awake, oriented x3. No acute focal deficits appreciated. Investigations: Sodium 135, creatinine 3.4. Troponin 0.17. BNP is 74,122. Her white blood cell co unt is 2.9, hemoglobin 9.8. EKG with diffuse ST depression, unchanged from prior. Assessment And Plan: 1.Non-ST elevation myocardial infarction with ongoing chest pain. We will take the patient to the c ath lab for coronary angiogram and bypass graft study and PCI if indicated. 2.Hypertension. Blood pressure is controlled. 3.End-stage renal disease. Continue dialysis as per Nephrology. SR/MODL Voice ID: [id number] Report ID: [id number]
--- NOTE | 2020-07-14 20:11 | P.HP ---
Certification for Inpatient Patient admitted to: Inpatient With expected LOS: >2 Midnights Patient will require the following post-hospital care: None Practitioner: I am a practitioner with admitting privileges, knowledge of patient current condition, hospital course, and medical plan of care. Services: Services provided to patient in accordance with Admission requirements found in Title 42 Section 412.3 of the Code of Federal Regulations <[email or web address] - Last Filed: 07/14/20 20:05> Patient History Date of Service: 07/14/20 History of Present Illness: 64-year-old female with history of ESRD on HD, CAD S/P CABG, hypertension, hyperlipidemia, diabetes mellitus type 2 presents to the emergency department for chest pain. Patient was receiving dialysis and at the end the 1st session she began experiencing severe pressure-like chest pain that she states was similar to when she had to have her CABG. Patient was evaluated in the emergency department, initial EKG without any ST elevation, labs demonstrate elevated troponin 0.17 BNP 23116. Cardiology was consulted and patient was taken for urgent heart catheterization. Cardiology report not available for review at this time but laborer landscape report shows patient received heart catheterization, nursing staff reports this was to the RCA. After patient is transferred to inpatient room patient did begin having some oozing from the right femoral access site, this was addressed with direct pressure and sandbag, at this time bleeding is controlled. Will need to observe patient overnight. - Past Medical/Surgical History Diabetic: Yes -: Hypertension -: NIDDM -: ESRD - MWF -: Nonfuctioning LLE fistula -: Hyperlipidemia -: GERD -: Chronic ischemic heart disease -: Hyperparathyroidism -: anemia -: iron deficiency -: COVID-19 01/21/2020 -: Triple bypass 2016 -: Pacemaker -: Tubal ligation -: Fistula aneursym reconstruction 4 times -: Bilateral cataract surgery Psychosocial/ Personal History: Lives at home - Family History Mother -: Heart disease - Social History Smoking Status: Never smoker Alcohol use: No CD- Drugs: No Caffeine use: No Place of Residence: Home <Talha Stern - Last Filed: 07/14/20 20:05> Date of Service: 07/16/20 <jen singh - Last Filed: 07/16/20 08:56> Allergies No Known Allergies Allergy (Verified 02/20/20 21:51) Home Medications: Aspirin 81 mg PO DAILY 07/15/20 Atorvastatin Calcium [Lipitor] 80 mg PO BEDTIME 07/15/20 Calcium Carbonate [Tums Regular] 500 mg PO TID PRN 07/15/20 Emla 1 appl TOP SEECOM 07/15/20 Hydralazine HCl [Apresoline] 50 mg PO BID 07/15/20 Isosorbide Mononitrate [Isosorbide Mononitrate ER] 30 mg PO DAILY 07/15/20 Lactulose 30 gm PO DAILYPRN PRN 07/15/20 Metoclopramide [Reglan] 5 mg PO TIDWM 07/15/20 NIFEdipine [Nifedipine ER] 60 mg PO DAILY 07/15/20 Pantoprazole [Protonix Tab] 40 mg PO DAILY 07/15/20 Sennosides/Docusate Sodium [Senexon-S 50-8.6 mg Tablet] 1 each PO BID 07/15/20 Sucroferric Oxyhydroxide [Velphoro] 500 mg PO TIDWM 07/15/20 Vit B Comp C/Folic Acid/Vit D3 [Dialyvite 800 Plus D Wafer] 1 each PO DAILY 07/15/20 Vitamin E 400 unit PO DAILY 07/15/20 Review of Systems 10-point ROS is otherwise unremarkable Cardiovascular: Chest Pain, As per HPI <Talha Stern - Last Filed: 07/14/20 20:05> Physical Examination - Vital Signs Temperature: 95.6 F Blood Pressure: 178/67 Pulse: 60 Respirations: 18 - Physical Exam General: Alert, In no apparent distress HEENT: Atraumatic, PERRLA, Mucous membr. moist/pink Neck: Supple, 2+ carotid pulse no bruit, No LAD Respiratory: Clear to auscultation bilaterally, Normal air movement Cardiovascular: Regular rate/rhythm, Normal S1 S2 Gastrointestinal: Normal bowel sounds, No tenderness Musculoskeletal: No tenderness Integumentary: No rashes Neurological: Normal speech, Normal strength at 5/5 x4 extr, Normal tone - Studies Laboratory Data (last 24 hrs) 07/14/20 12:15: PT 11.3, INR 0.98 07/14/20 12:15: Sodium 135 L, Potassium 4.0, BUN 25 H, Creatinine 3.42 H, Glucose 125 H, Magnesium 2.3, Total Bilirubin 0.4, AST 40 H, ALT 64, Alkaline Phosphatase 142 H, Lipase 370 07/14/20 11:37: WBC 2.90 L, Hgb 9.8 L, Hct 29.0 L, Plt Count 119 L <Talha Stern - Last Filed: 07/14/20 20:05> - Studies Laboratory Data (last 24 hrs) 07/15/20 05:37: Sodium 133 L, Potassium 6.0 H*, BUN 36 H, Creatinine 4.79 H D, Glucose 101, Magnesium 2.4, Total Bilirubin 0.4, AST 35, ALT 58, Alkaline Phosph atase 119 H <jen singh - Last Filed: 07/16/20 08:56> Assessment and Plan - Plan Assessment ACS/NSTEMI S/P stenting of the RCA complicated with some oozing at the femoral access site ESRD on HD DM 2 HTN, HLD, hypothyroidism, GERD Plan ACS/NSTEMI S/P stenting of the RCA complicated with some oozing at the femoral access site: Patient receive heart catheterization with stent placement today, will continue to monitor patient on tele throughout the evening, pain has resolved at this time. Continue with cardiology recommendations and home medications. Patient noted to have some oozing at the right femoral access site, patient currently with 10 lb in bed applied after direct pressure was applied, laborer landscape staff will consult cardiology regarding further management of oozing from right femoral access site. ESRD on HD: Consult nephrology, patient did complete dialysis today. Daily labs DM 2: A.c. HS Accu-Cheks, sliding scale insulin therapy. HTN, HLD, hypothyroidism, GERD: Stable at this time, continue home medications. Discharge Plan: Home Plan to discharge in: 48 Hours - Advance Directives Does patient have a Living Will: No Does patient have a Durable POA for Healthcare: No - Code Status/Comfort Care Code Status Assessed: Yes (Full code) Critical Care: No Time Spent Managing Pts Care (In Minutes): 55 <Talha Stern - Last Filed: 07/14/20 20:05> Physician Review: Patient Assessed, Agree with Above Assessment and Plan Physician Review Additional Text: NSTEMI DM ESRD on HD. Plan: S/p Cardiac cath with stenting of RCA. Cardiology input appreciated. Nephrology consult for HD. <jen singh - Last Filed: 07/16/20 08:56>
--- NOTE | 2020-07-14 20:32 | OP ---
Date of Procedure: 07/14/2020 Surgeon: ANUM OCONNOR Procedures Performed: 1.Selective coronary angiogram. 2.Percutaneous coronary intervention of severe ostial diagonal 2 branch using 2.5 x [address] ug-eluting stent. Access: Right femoral artery 6-Scottish closed with a 6-Scottish Angio-Seal. Complications: None. Bleeding: Less than 10 mL. Indication: Non-ST elevation myocardial infarction. Description Of Procedure: After risks, benefits, and alternatives were explained, the patient agreed to the procedure and signed informed consent. The patient was brought into the cardiac catheterizat ion laboratory, prepped and draped in usual sterile fashion. An access right femoral artery using a micropuncture kit and placed a 6-Scottish Eagle sheath and took a 6-Scottish JL4 catheter into the aor tic root, engaged left main, took standard views and then a 6-Scottish JR4 to the aortic root, engaged the RCA and SVG to RCA, SVG to OM and BAUER to LAD. Then, we proceeded to the intervention part. Intervention Details: The patient was given systemic heparin to assure ACT level above 250 and then took a 6-Scottish EBU3.5 guide into the aortic root over a J-wire, engaged left main and then took a sh ort Run-Through wire into the LAD to diagonal 2 branch across the stenosis. The lesion was pre-dilat ed and then placed a 2.5 x 12 mm Synergy drug-eluting stent with excellent results, CAPRI-3 flow and 0 % residual stenosis. Then removed the wire and the guide and removed the sheath, and the access was closed using 6-Scottish Angio-Seal with good hemostasis. The patient was loaded with 600 mg of Plavix before starting the procedure. Findings: 1.Left main; large with distal 20% stenosis. 2.LAD; has a mid 50% stenosis, then [employer] after diagonal 2 and diagonal 2 has ostial severe more than 90% stenosis, likely the culprit for the symptoms, status post successful PCI using 2.5 x 12 mm Syner gy drug-eluting stent. 3.The left circumflex had mid 50% stenosis. 4.RCA; proximal 80% to mid 80%. Grafts: 1.Patent BAUER to LAD. 2.Patent SVG to OM. 3.Patent SVG to RCA. Conclusion: 1.Severe [place] coronary artery disease as above. 2.Severe diagonal 2 branch stenosis which is not bypassed and likely the culprit of the symptoms, st atus post successful PCI as above. Plan: Aspirin, Plavix, and high-dose statin. SR/MODL Voice ID: [id number] Report ID: [id number]
[2020-07-14] MEDS: INSULIN -REGULAR HUMAN 50 UNIT/0.5 ML ML SQ SCH (21:40)
[2020-07-14] MEDS ORDERED: TRAMADOL HCL 50 MG TAB PO PRN (21:40)
[2020-07-14] MEDS: METOPROLOL TAR 50 MG TAB PO SCH (22:01)
[2020-07-14] MEDS: MORPHINE 2 MG/ML SYR IV PRN (22:25)
[2020-07-14 22:58] LABS: Troponin I 0.18 ng/mL (0.0-0.045)
[2020-07-15 01:14] VITALS: BMI 25.7
[2020-07-15] MEDS ORDERED: LACTULOSE 20 GM/30 ML UCUP PO PRN (04:45)
[2020-07-15] MEDS ORDERED: CALCIUM CARBONATE CHEW 500MG TAB PO PRN (04:45)
[2020-07-15] MEDS ORDERED: LIDOCAINE/PRILOCAINE CREAM TOP PRN (04:45)
[2020-07-15] MEDS: MORPHINE 2 MG/ML SYR IV PRN (04:54)
[2020-07-15 05:57] LABS: Absolute Lymphocytes (CBC) 0.5 K/uL (0.7-4.9); Basophils % 1.4 % (0-1.3); Hematocrit 27.7 % (36.0-45.0); MPV 8.7 fL (7.6-11.3); RBC Red Blood Cell Count 2.75 M/uL (3.86-4.86)
[2020-07-15 06:41] LABS: Albumin 2.9 g/dL (3.4-5.0); Bilirubin Total 0.4 mg/dL (0.2-1.0); Protein, Total 6.9 g/dL (6.4-8.2)
[2020-07-15 06:48] LABS: Blood Morphology Comment NOT SEEN (NOT SEEN); Platelet Estimate ADEQ
[2020-07-15] MEDS ORDERED: D50W 25 GM/50 ML SYRINGE IV PRN (07:23)
[2020-07-15] MEDS ORDERED: D50W 25 GM/50 ML SYRINGE IV ONE (07:23)
[2020-07-15] MEDS ORDERED: CALCIUM GLUC 10% INJ 4.65 MEQ in NA CHLORIDE 0.9% 100 ML IV ONE (07:23)
[2020-07-15] MEDS ORDERED: GLUCAGON 1 MG/VIAL IM PRN (07:23)
[2020-07-15] MEDS ORDERED: SOD POLYSTYREN SUL 15 GM/60 ML UCUP PO ONE (07:23)
[2020-07-15] MEDS: INSULIN -REGULAR HUMAN 50 UNIT/0.5 ML ML SQ SCH ×4 (07:30→21:49)
[2020-07-15] MEDS ORDERED: INSULIN -REGULAR HUMAN 50 UNIT/0.5 ML ML IV ONE (07:30)
[2020-07-15] MEDS: HOME MED 1 EA UNK (Sucroferric Oxyhydroxide [Velphoro] 500 MG Tab.Chew) PO SCH ×3 (08:00→17:00)
[2020-07-15] MEDS: VITAMIN E 400 IU CAP PO SCH (09:00)
[2020-07-15] MEDS ORDERED: VIT B COMP C PO SCH (09:00)
[2020-07-15] MEDS: PANTOPRAZOLE 40MG TABLET PO SCH (09:00)
[2020-07-15] MEDS ORDERED: [UNRECOGNIZED DRUG - OTHER] PO SCH (09:00)
[2020-07-15] MEDS: METOPROLOL TAR 50 MG TAB PO SCH ×2 (09:00→20:42)
[2020-07-15] MEDS ORDERED: VIT D3 PO SCH (09:00)
[2020-07-15] MEDS ORDERED: FOLIC ACID PO SCH (09:00)
[2020-07-15] MEDS: DOCUSATE NA/SENNA CONC 1 TAB PO SCH ×2 (10:24→20:42)
[2020-07-15] MEDS: NIFEDIPINE XL 60 MG TABLET PO SCH (10:25)
[2020-07-15] MEDS: ISOSORBIDE MONO SR 30 MG TAB PO SCH (10:25)
[2020-07-15] MEDS: ASPIRIN EC 81 MG TAB PO SCH (10:25)
[2020-07-15] MEDS: CLOPIDOGREL 75 MG TABLET PO SCH (10:27)
[2020-07-15] MEDS: METOCLOPRAMIDE 5 MG TAB PO SCH ×3 (10:27→17:07)
[2020-07-15] MEDS: MULTIVITAMINS,THERAPEUT 1 TAB PO SCH (10:27)
[2020-07-15] MEDS: HYDRALAZINE HCL 25 MG TABLET PO SCH ×2 (10:27→20:42)
--- NOTE | 2020-07-15 12:27 | P.PN ---
Subjective Date of Service: 07/15/20 Subjective: No new changes (no new chest pain since procedure, feeling better, denies SOB, no nausea/vomiting, voiding without issue. Had some oozing from femoral access yesterday after cardiac cath) Physical Examination - Vital Signs Temperature: 98.9 F Blood Pressure: 184/84 Pulse: 62 Respirations: 20 Pulse Ox (%): 94 - Studies Laboratory Data (last 24 hrs) 07/15/20 05:37: Sodium 133 L, Potassium 6.0 H*, BUN 36 H, Creatinine 4.79 H D, Glucose 101, Total Bilirubin 0.4, AST 35, ALT 58, Alkaline Phosphatase 119 H 07/15/20 05:37: WBC 3.20 L, Hgb 9.4 L, Hct 27.7 L, Plt Count 109 L 07/15/20 05:37: Troponin I 0.22 H 07/15/20 02:00: Troponin I 0.18 H 07/14/20 22:22: Troponin I 0.18 H, Triglycerides 141, Cholesterol 184, HDL Cholesterol 63 H, Cholesterol/HDL Ratio 2.92 07/14/20 12:15: PT 11.3, INR 0.98 07/14/20 12:15: Sodium 135 L, Potassium 4.0, BUN 25 H, Creatinine 3.42 H, Glucose 125 H, Magnesium 2.3, Total Bilirubin 0.4, AST 40 H, ALT 64, Alkaline Phosphatase 142 H, Lipase 370 07/14/20 11:37: WBC 2.90 L, Hgb 9.8 L, Hct 29.0 L, Plt Count 119 L Assessment & Plan Physician Review Additional Text: Physical Exam General: Alert, In no apparent distress HEENT: MMM, sclera anicteric, normal conjunctiva Respiratory: Clear to auscultation bilaterally, Normal air movement Cardiovascular: Regular rate/rhythm, Normal S1 S2, no murmur Gastrointestinal: soft, Normal bowel sounds, No tenderness Musculoskeletal: No tenderness Integumentary: No rashes Neurological: Normal speech, Normal strength at 5/5 x4 extr Problem List ACS/NSTEMI S/P stenting of the diagonal complicated with some oozing at the fem oral access site ESRD on HD DM 2, non-insulin dependent HTN HLD Hypothyroidism GERD -s/p PCI on 07/14, complicated with oozing at femoral access site, no longer oozing this morning, had pressure / sand bad placed last night -renal function slightly worse this morning, s/p HD yesterday prior to cath, hyperkalemia as well up to 6.0 -IV insulin with D50, kayexalate, Ca gluc ordered this morning, recheck this afternoon -Cardiology following -nephrology consulted -will need to monitor through today -restarted home medications Dispo: anticipate dc home tomorrow Time Spent Managing Pts Care (In Minutes): 35
[2020-07-15 13:01] LABS: Magnesium 2.4 mg/dL (1.8-2.4)
[2020-07-15 14:07] LABS: Potassium 5.3 mmol/L (3.5-5.1)
--- NOTE | 2020-07-15 16:37 | EKG ---
Test Date: 2020-07-14 Test Time: 11:40:03 Emergency Detail Driver: PRABHU MEASUREMENT RESULTS: Intervals: Rate: 61 VT: 142 QRSD: 94 QT: 500 QTc: 503 Hagerman: P: 56 VT: 142 QRS: 43 T: 207 INTERPRETIVE STATEMENTS: Normal sinus rhythm RSR' or QR pattern in V1 suggests right ventricular conduction delay ST & T wave abnormality, consider inferior ischemia ST & T wave abnormality, consider anterolateral ischemia Prolonged QT Abnormal ECG Compared to ECG 02/20/2020 12:37:55 RSR' in V1 or V2 now present ST (T wave) deviation now present T-wave abnormality no longer present Possible ischemia still present Electronically Signed On 07-15-20 16:33:23 CDT by Papi Mi
[2020-07-15] MEDS ORDERED: D50W 25 GM/50 ML VIAL IV PRN (18:00)
--- NOTE | 2020-07-15 18:48 | CON ---
Date of Consultation: 07/15/2020 Consulting Physician: Dr. Lau. Reason For Consultation: Hyperkalemia, hypertension, end-stage renal disease. History Of Present Illness: This is a pleasant 64-year-old female, well known to me from the dialysis, with significant past medical history of end-stage renal disease on dialysis Tuesday, Tuesday, Tuesday, last dialysis yesterday; hypertension; diabetes complicated with neuropathy and nephropathy; hyperlipidemia; COVID pneumonia before; renal artery stenosis, status post stenting. The patient came to the hospital after dialysis complaining from chest pain, undergo cardiac cath with PTCA, has some leakage from cannulation area. The patient chest pain free. Primary workup found to have hyperkalemia with potassium 6. For that reason, we have been consulted. Again, the patient currently chest pain free. Past Medical History: Includes; 1. Hypertension. 2. Hyperlipidemia. 3. End-stage renal disease. 4. Renal artery stenosis. 5. Diabetes complicated with neuropathy and nephropathy. Review of Systems: Head and Neck: No red eye. No ear pain. GI: No nausea. No vomiting. : No polyuria. No dysuria. No hematuria. 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 Respiratory: No shortness of breath. Cardiovascular: Has chest pain. Endocrine: No polydipsia. Skin: No rash. Neuro: Has neuropathy. Musculoskeletal: No joint pain. Allergies: NO KNOWN DRUGS ALLERGY. Family History: Positive for diabetes. Social History: Denies smoking. Denies drinking. Denies drugs abuse. Review of Systems: As above. Home Medications: Include Velphoro, Tums, docusate, pantoprazole, nifedipine, lactulose, hydralazine, B complex, atorvastatin, and aspirin. Physical Examination: General: When I saw the patient, the patient is lying in bed. Vital Signs: Blood pressure 184/84, pulse of 62, afebrile. Chest: Faint rales on the base. Heart: S1, S2. Systolic murmur. Abdomen: Soft, nontender. Extremities: No edema. Neuro: Alert. No focal. Laboratory Data: WBC 3.2, H and H 9.4/27.7. Sodium 133, potassium 6, bicarb 25, BUN 36, creatinine 4.7, calcium 7.5, magnesium 2.4. Current Medications: The patient on include aspirin, Plavix, calcium carbonate, hydralazine, isosorbide, nifedipine, Tylenol, metoclopramide. Assessment And Plan: 1. End-stage renal disease with hyperkalemia. I am going to go ahead and arrange for dialysis today. The patient is going to be dialyzed on low- potassium bath and we will monitor the patient. 2. Hypertension secondary to renal artery stenosis and renal failure. We will follow up blood pressure after dialysis. 3. Coronary artery disease, status post percutaneous transluminal coronary angioplasty. We will follow up with Cardiology. 4. Diabetes, as by primary. 5. Hyperkalemia. The patient is going to be dialyzed on low-potassium bath. We will follow up. The patient cleared from the renal standpoint for discharge planning after dialysis if okay with Cardiology. Case discussed with Dr. Lau, hospitalist agreed on the plan. time spend exam the patient face to face , discussing with patient , reviewing la and radiology date, placing order , discussing the case with staff and with other team consultan and hospitalist 65 min. LEIGHANN Voice ID: [id number] Report ID: [id number] MTDD
[2020-07-15] MEDS ORDERED: ATORVASTATIN 80 MG TAB PO SCH (21:00)
[2020-07-16 05:47] LABS: Absolute Lymphocytes (CBC) 0.5 K/uL (0.7-4.9); Basophils % 1.4 % (0-1.3); Hematocrit 28.7 % (36.0-45.0); Lymphocytes % 13.2 % (15.3-44.8); MPV 8.7 fL (7.6-11.3); RBC Red Blood Cell Count 2.82 M/uL (3.86-4.86)
[2020-07-16 05:58] LABS: Magnesium 2.5 mg/dL (1.8-2.4)
[2020-07-16] MEDS: HOME MED 1 EA UNK (Sucroferric Oxyhydroxide [Velphoro] 500 MG Tab.Chew) PO SCH ×2 (08:00→11:51)
--- NOTE | 2020-07-16 08:32 | ECHO ---
HEIGHT: 5 ft 5 in WEIGHT: 154 lb 4.8 oz DATE OF STUDY: 07/15/[address]: jen singh 2-DIMENSIONAL: YES M.MODE: YES DOPPLER: YES COLOR FLOW: YES TDS: NO PORTABLE: NO DEFINITY: NO BUBBLE STUDY: NO DIAGNOSIS: CHEST PAIN CARDIAC HISTORY: CATHERIZATION: YES SURGERY: YES PROSTHETIC VALVE: NO PACEMAKER: MEASUREMENTS (cm) DIASTOLIC (NORMALS) SYSTOLIC (NORMALS) IVSd 1.4 (0.6-1.2) LA Diam 4.5 (1.9-4.0) LVEF 56% LVIDd 4.1 (3.5-5.7) LVIDs 3.0 (2.0-3.5) %FS 29% LVPWd 1.4 (0.6-1.2) Ao Diam 2.7 (2.0-3.7) 2 DIMENSIONAL ASSESSMENT: RIGHT ATRIUM: NORMAL LEFT ATRIUM: DILATED RIGHT VENTRICLE: NORMAL LEFT VENTRICLE: LEFT VENTRICULAR HYPERTROPHY TRICUSPID VALVE: NORMAL MITRAL VALVE: NORMAL PULMONIC VALVE: NORMAL AORTIC VALVE: NORMAL PERICARDIAL EFFUSION: NONE AORTIC ROOT: NORMAL LEFT VENTRICULAR WALL MOTION: NORMAL DOPPLER/COLOR FLOW: MILD MITRAL AND TRICUSPID REGURGITATION. COMMENTS: LEFT ATRIAL ENLARGEMENT. LEFT VENTRICULAR HYPERTROPHY. NORMAL LEFT VENTRICULAR EJECTION FRACTION. NO WALL MOTION ABNORMALITY. NO EFFUSION. MILD MITRAL AND TRICUSPID REGURGITATION. TECHNOLOGIST: Amelia GROVES
[2020-07-16] MEDS: METOPROLOL TAR 50 MG TAB PO SCH (08:36)
[2020-07-16] MEDS: METOCLOPRAMIDE 5 MG TAB PO SCH ×2 (08:36→11:51)
[2020-07-16] MEDS: MULTIVITAMINS,THERAPEUT 1 TAB PO SCH (08:36)
[2020-07-16] MEDS: ASPIRIN EC 81 MG TAB PO SCH (08:37)
[2020-07-16] MEDS: CLOPIDOGREL 75 MG TABLET PO SCH (08:37)
[2020-07-16] MEDS: NIFEDIPINE XL 60 MG TABLET PO SCH (08:37)
[2020-07-16] MEDS: ISOSORBIDE MONO SR 30 MG TAB PO SCH (08:37)
[2020-07-16] MEDS: DOCUSATE NA/SENNA CONC 1 TAB PO SCH (08:37)
[2020-07-16] MEDS: PANTOPRAZOLE 40MG TABLET PO SCH (08:37)
[2020-07-16] MEDS: HYDRALAZINE HCL 25 MG TABLET PO SCH (08:37)
[2020-07-16] MEDS: INSULIN -REGULAR HUMAN 50 UNIT/0.5 ML ML SQ SCH ×2 (08:38→11:30)
[2020-07-16 08:58] VITALS: O2SAT 95
[2020-07-16] MEDS: VITAMIN E 400 IU CAP PO SCH (09:00)
[2020-07-16 12:26] VITALS: BP 150/80
[2020-07-16] MEDS ORDERED: HYDRALAZINE HCL 25 MG TABLET PO SCH (14:00)
[2020-07-16 14:09] VITALS: TEMP 97.7
--- NOTE | 2020-07-16 15:26 | P.DS ---
Admission Date: 07/14/20 Discharge Date: 07/16/20 Disposition: ROUTINE DISCHARGE Discharge Condition: GOOD Reason for Admission: Chest pain, NSTEMI Consultations: Cardiology - Dr. Santamaria, [facility] Nephrology - Dr. Jackson Procedures: CXR (07/14): lungs appear clear of acute infiltrate. The heart is mildly to moderately enlarged. Pacemaker leads are in place. Postsurgical changes involve chest TTE (07/15): LA enlargement. LVH. LVEF normal: 56%, no wall motion abnormality. no effusion. mild MR & TR Cardiac Cath (07/15): by Dr. Santamaria: Percutaneous coronary intervention of severe ostial diagonal 2 branch using 2.5 x 12 mm Synergy drug-eluting stent. Findings: 1. Left main; large with distal 20% stenosis. 2. LAD; has a mid 50% stenosis, then INSTALL TECHNICIAN after diagonal 2 and diagonal 2 has ostial severe more than 90% stenosis, likely the culprit for the symptoms, status post successful PCI using 2.5 x 12 mm Synergy drug-eluting stent. 3. The left circumflex had mid 50% stenosis. 4. RCA; proximal 80% to mid 80%. Grafts: 1. Patent BAUER to LAD. 2. Patent SVG to OM. 3. Patent SVG to RCA. Conclusion: 1. Severe [place] coronary artery disease as above. 2. Severe diagonal 2 branch stenosis which is not bypassed and likely the culprit of the symptoms, status post successful PCI as above. Problem List NSTEMI s/p stenting of the Diagonal 2 branch stenosis complicated with some oozing at the femoral access site-resolved ESRD on HD DM 2 HTN HLD Hypothyroidism GERD Brief History of Present Illness: 64yo F, PMH: ESRD on HD, CAD S/P CABG, hypertension, hyperlipidemia, diabetes mellitus type 2 presents to the emergency department for chest pain. Patient was receiving dialysis and at the end the 1st session she began experiencing severe pressure-like chest pain that she states was similar to when she had to have her CABG. Patient was evaluated in the emergency department, initial EKG without any ST elevation, labs demonstrate elevated troponin 0.17 BNP 16049. Cardiology was consulted and patient was taken for urgent heart catheterization. Cardiology report not available for review at this time but carpenter/labor report shows patient received heart catheterization, nursing staff reports this was to the RCA. After patient is transferred to inpatient room patient did begin having some oozing from the right femoral access site, this was addressed with direct pressure and sandbag, at this time bleeding is controlled. Hospital Course: Patient was monitored, received dialysis, and continued to do well. She denied any recurrent chest pain/pressure. She no longer had oozing from her femoral access site. There were no other complications during her hospitalization. She was feeling well and was discharged home. Her dialysis center was called and able to dialyze the patient upon arrival today. Follow-up: PCP in 3-5 days Cardiology in 3-4 weeks Nephrology - as previously scheduled Vital Signs/Physical Exam: Physical Exam General: Alert, In no apparent distress HEENT: MMM, sclera anicteric, normal conjunctiva Respiratory: Clear to auscultation bilaterally, Normal air movement Cardiovascular: Regular rate/rhythm, Normal S1 S2, no murmur Gastrointestinal: soft, Normal bowel sounds, No tenderness Musculoskeletal: No tenderness Integumentary: No rashes Temp Pulse Resp BP Pulse Ox 97.7 F 60 17 150/80 H 100 07/16/20 12:00 07/16/20 12:26 07/16/20 12:00 07/16/20 12:26 07/16/20 12:00 Laboratory Data at Discharge: WBC 3.90 K/uL (4.3-10.9) L D 07/16/20 05:27 Hgb 9.7 g/dL (12.0-15.0) L 07/16/20 05:27 Hct 28.7 % (36.0-45.0) L 07/16/20 05:27 Plt Count 107 K/uL (152-406) L 07/16/20 05:27 PT 11.3 SECONDS (9.5-12.5) 07/14/20 12:15 INR 0.98 07/14/20 12:15 Sodium 141 mmol/L (136-145) 07/16/20 05:27 Potassium 4.0 mmol/L (3.5-5.1) 07/16/20 05:27 BUN 22 mg/dL (7-18) H 07/16/20 05:27 Creatinine 3.78 mg/dL (0.55-1.3) H D 07/16/20 05:27 Glucose 218 mg/dL (74-106) H 07/16/20 05:27 Magnesium 2.5 mg/dL (1.8-2.4) H 07/16/20 05:27 Total Bilirubin 0.4 mg/dL (0.2-1.0) 07/15/20 05:37 AST 35 U/L (15-37) 07/15/20 05:37 ALT 58 U/L (12-78) 07/15/20 05:37 Alkaline Phosphatase 119 U/L (45-117) H 07/15/20 05:37 Troponin I 0.22 ng/mL (0.0-0.045) H 07/15/20 05:37 Triglycerides 141 mg/dL (<150) 07/14/20 22:22 Cholesterol 184 mg/dL (<200) 07/14/20 22:22 HDL Cholesterol 63 mg/dL (40-60) H 07/14/20 22:22 Cholesterol/HDL Ratio 2.92 07/14/20 22:22 Lipase 370 U/L (73-393) 07/14/20 12:15 Home Medications: Aspirin 81 mg PO DAILY 07/15/20 Atorvastatin Calcium [Lipitor] 80 mg PO BEDTIME 07/15/20 Calcium Carbonate [Tums Regular*] 500 mg PO TID PRN 07/15/20 Emla 1 appl TOP SEECOM 07/15/20 Hydralazine HCl [Apresoline] 50 mg PO BID 07/15/20 Isosorbide Mononitrate [Isosorbide Mononitrate ER] 30 mg PO DAILY 07/15/20 Lactulose 30 gm PO DAILYPRN PRN 07/15/20 Metoclopramide [Reglan*] 5 mg PO TIDWM 07/15/20 NIFEdipine [Nifedipine ER] 60 mg PO DAILY 07/15/20 Pantoprazole [Protonix Tab*] 40 mg PO DAILY 07/15/20 Sennosides/Docusate Sodium [Senexon-S 50-8.6 mg Tablet] 1 each PO BID 07/15/20 Sucroferric Oxyhydroxide [Velphoro] 500 mg PO TIDWM 07/15/20 Vit B Comp C/Folic Acid/Vit D3 [Dialyvite 800 Plus D Wafer] 1 each PO DAILY Vitamin E 400 unit PO DAILY 07/15/20 Clopidogrel Bisulfate [Plavix*] 75 mg PO DAILY 30 Days #30 tablet 07/16/20 Metoprolol Tartrate [Lopressor] 12.5 mg PO BID 30 Days #30 tab 07/16/20 New Medications: Metoprolol Tartrate [Lopressor] 12.5 mg PO BID 30 Days #30 tab Clopidogrel Bisulfate [Plavix*] 75 mg PO DAILY 30 Days #30 tablet Physician Discharge Instructions: PROBLEM: Cardiac catheterization GOAL: Clear understanding of disease process [facility] [place]. INSTRUCTIONS: - You were found to have a blockage in one of your coronary arteries and a stent was placed. Continue plavix and aspirin, and you are prescribed metoprolol 12 .5mg twice a day. - Please follow up with Cardiology in the next few weeks as discussed. - Follow up with Nephrology as scheduled. - To have dialysis today. - Return to the ER if your symptoms worsen. - Call the 2nd floor at if you have any questions regarding your nursing care. Diet: Renal Activity: As tolerated IMMUNIZATION Influenza Vaccine Indicated: Influenza Vaccine Given: Date Given: Pneumonia Vaccine Indicated: No Pneumonia Vaccine Given: Date Given: Diet: Renal Activity: Ad cory Followup: Bradley Santamaria MD [ACTIVE - CAN ADMIT] - 1-2 Weeks (Follow up in office in 1-2 weeks. Call to schedule an appointment. ) Time spent managing pt's care (in minutes): 35
--- NOTE | 2020-07-16 16:13 | PN ---
Date of Progress Note: 07/16/2020 Subjective: The patient was admitted with non-ST elevation VA. The patient was dialyzed, responded to dialysis yesterday because of hyperkalemia. Physical Examination: Vital Signs: Blood pressure 150/80, pulse of 60, afebrile. Chest: Clear to auscultation. Heart: S1, S2. Regular. Abdomen: Soft, nontender. Extremity: No edema. Neurologic: Alert. No focality. Laboratory Data: WBC 3.9, H and H 9.7/29.7. Sodium 141, potassium 4, bicarb 29, BUN 32, creatinine 3.7, calcium 7.7, magnesium 2.5. Current Medications: The patient on include; 1. Hydralazine 50 mg b.i.d. 2. Calcium carbonate. 3. Plavix. 4. Atorvastatin. 5. Isosorbide. 6. Metoprolol 12.5. 7. Nifedipine of 60. 8. Lactulose. 9. Pantoprazole. Assessment And Plan: 1. End-stage renal disease. We will continue dialysis. The patient is due for dialysis today, Tuesday, Tuesday. We will arrange for the dialysis as outpatient. 2. Hyperkalemia, status post dialysis, resolved. 3. Hypertension secondary to renal artery stenosis. I am going to go ahead and increase her hydralazine. We will follow up blood pressure after dialysis today. 4. CAD status post PTCA. time spend exam the patient face to face , discussing with patient , reviewing la and radiology date, placing order , discussing the case with staff and with other team consultan and hospitalist 45 min. LEIGHANN Voice ID: [id number] Report ID: [id number] MTDD
--- NOTE | 2020-07-17 12:20 | PN ---
Date of Progress Note: 07/15/2020 Subjective: Ms. Valdez had a heart catheterization and she had a stent of her diagonal by Dr. Santamaria on 07/14/2020. Overnight, she has vital signs that are stable. Her pressure 170/65. She is in a pa humberto rhythm. She is afebrile. No cardiac complaint. Her examination is within normal limit. Her O2 saturation is 93%. Her creatinine however had gone up to 5.74 from 3.42. Her hemoglobin is 9.7. N ephrology is following. We will continue on her present regimen right now, which does include aspiri n, Lipitor, Plavix, hydralazine, insulin, Imdur, metoprolol, nifedipine. I think once her kidney fun ction improves back to her baseline, she can certainly go home. We need to see her in the office in the near future. She should definitely go home on her present regimen which will include aspirin, be ta-kath, statin, and Plavix. DENG/EVAN Voice ID: [id number] Report ID: [id number]
== END 2020-07-16 14:56 | disposition home or self-care (01) | DRG 246 ==
LOC: ER 11:08 → ERHOLD 12:34 → 2ND 18:41 → OBSVTOIN 07-15 10:36
PROVIDERS: ADMIT Internal Medicine; ATTEND Hospitalist
PROC: 027034Z Dilation of Coronary Artery, One Artery with Drug-eluting Intraluminal Device, Percutaneous Approach (ICD-10-PCS; principal; 2020-07-14)
PROC: 4A023N7 Measurement of Cardiac Sampling and Pressure, Left Heart, Percutaneous Approach (ICD-10-PCS; 2020-07-14)
PROC: B2111ZZ Fluoroscopy of Multiple Coronary Arteries using Low Osmolar Contrast (ICD-10-PCS; 2020-07-14)
PROC: 5A1D70Z Performance of Urinary Filtration, Intermittent, Less than 6 Hours Per Day (ICD-10-PCS; 2020-07-15)
DX: I21.4 Non-ST elevation (NSTEMI) myocardial infarction (principal); N18.6 End stage renal disease; I12.0 Hypertensive chronic kidney disease with stage 5 chronic kidney disease or end stage renal disease; E11.22 Type 2 diabetes mellitus with diabetic chronic kidney disease; I25.10 Atherosclerotic heart disease of native coronary artery without angina pectoris; E78.5 Hyperlipidemia, unspecified; E87.5 Hyperkalemia; E03.9 Hypothyroidism, unspecified; K21.9 Gastro-esophageal reflux disease without esophagitis; I25.2 Old myocardial infarction; Z79.02 Long term (current) use of antithrombotics/antiplatelets; Z79.899 Other long term (current) drug therapy; Z79.82 Long term (current) use of aspirin; Z99.2 Dependence on renal dialysis; Z95.1 Presence of aortocoronary bypass graft; Z86.16 Personal history of COVID-19; Z98.51 Tubal ligation status; Z20.822 Contact with and (suspected) exposure to COVID-19
CPT/HCPCS: 36415; 71045; 80048; 80053; 80061; 80076; 82947; 83690; 83735; 83880; 84484; 85025; 85347; 85610; 90935; 93005; 93306; 93454; 96361; 96374; 96375; 99285; C1725; C1760; C1893; C9600; G0378; J0610; J1644; J2250; J2270; J2405; J3010; J7030; J7040; U0003

== ENCOUNTER 2020-12-29 08:14 | Inpatient (IN) | payer OTHER ==
[2020-12-29 09:11] LABS: Protime INR 0.97
[2020-12-29 09:15] LABS: Basophils % 0.4 % (0-1.3); Hematocrit 31.9 % (36.0-45.0); Lymphocytes % 28.9 % (15.3-44.8); MPV 9.2 fL (7.6-11.3); RBC Red Blood Cell Count 3.28 M/uL (3.86-4.86)
[2020-12-29] MEDS ORDERED: MORPHINE 2 MG/ML SYR ONE (09:24)
[2020-12-29] MEDS ORDERED: ASPIRIN 81 MG CHEWABLE TABLET ONE (09:24)
[2020-12-29] MEDS ORDERED: ONDANSETRON 4 MG/2 ML VIAL ONE (09:25)
--- NOTE | 2020-12-29 09:39 | RAD REPORT ---
EXAM DESCRIPTION: RAD - Chest Single View - 12/29/2020 9:31 am CLINICAL HISTORY: CHEST PAIN COMPARISON: July 14 TECHNIQUE: AP portable chest image was obtained 12/29/2020 9:31 am . FINDINGS: Lung volumes are slightly reduced. No peripheral mass or consolidations seen. Overall inte rstitial pattern is prominent and there is engorgement of the central vasculature. Cardiomegaly is pr esent. No measurable pleural effusion and no pneumothorax. No acute bony abnormality seen. No acute a ortic finding. Sternotomy wires are in place. Right-sided pacemaker remains in place. IMPRESSION: Mild CHF/volume overload pattern.
--- NOTE | 2020-12-29 09:41 | ER ---
Nurse's Notes [facility] Name: Qiana Valdez Age: 65 yrs Sex: Female : 1955 Arrival Date: 12/29/2020 Time: 08:18 Bed 16 Private MD: Diagnosis: Chest pain, unspecified;Abdominal tenderness;Type 1 diabetes mellitus with hyperglycemia;End stage renal disease-on HD, M,W,F;Cardiomegaly;Unspecified combined systolic (congestive) and diastolic (congestive) heart failure;Non ST elevation DE Presentation: 12/29 08:18 Chief complaint: EMS states: Chest pressure, while at dialysis. abdominal pain x 2 oh weeks. nitro x3 and aspirin 324 mg given. hx of DE, pacemaker. Coronavirus screen: Vaccine status: Patient reports receiving the 2nd dose of the covid vaccine. Ebola Screen: No symptoms or risks identified at this time. Initial Sepsis Screen: Does the patient meet any 2 criteria? No. Patient's initial sepsis screen is negative. Does the patient have a suspected source of infection? No. Patient's initial sepsis screen is negative. Risk Assessment: Do you want to hurt yourself or someone else? Patient reports no desire to harm self or others. Onset of symptoms was December 29, 2020. 08:18 Method Of Arrival: EMS: [facility] oh 08:18 Acuity: SIXTO 2 oh Triage Assessment: 08:28 General: Appears distressed, Behavior is cooperative, Reports chest pressure and oh abdominal pain. Historical: - Allergies: 10:49 No Known Allergies; oh - PMHx: 08:21 Chronic ischemic heart disease; Diabetes - IDDM; DIALYSIS MWF; ESRD; GERD; High oh Cholesterol; hyperparathyroidism; Hypertension; IRON DEFICIENCY ANEMIA; Myocardial infarction; Pacemaker; - Immunization history:: Adult Immunizations up to date. - Social history:: Patient/guardian denies using Smoking status: Patient denies any tobacco usage or history of. - Family history:: not pertinent. Screenin:24 Abuse screen: Denies threats or abuse. Nutritional screening: No deficits noted. oh Tuberculosis screening: No symptoms or risk factors identified. Fall Risk None identified. Assessment: 08:22 Pain: Complains of pain in abdomen, chest. Neuro: No deficits noted. Cardiovascular: oh Chest pain quality is heaviness, began 30 minutes prior to arrival. GI: Reports lower abdominal pain. 09:25 Reassessment: pt off the floor to ct. oh Vital Signs: 08:18 BP 152 / 63; Pulse 60; Resp 20; Temp 97.3(T); Pulse Ox 98% on R/A; Weight 72.5 kg; oh Height 5 ft. 3 in. (160.02 cm); 09:13 BP 150 / 62; Pulse 63; Resp 20; Pulse Ox 97% on R/A; oh 10:08 BP 148 / 73; Pulse 60; Resp 19; Pulse Ox 97% on 2 lpm NC; oh 10:50 BP 151 / 69; Pulse 60; Resp 19; Pulse Ox 97% on 2 lpm NC; oh 08:18 Body Mass Index 28.31 (72.50 kg, 160.02 cm) oh ED Course: 08:18 Patient arrived in ED. oh 08:21 Triage completed. oh 08:22 Patient placed in an exam room, on a stretcher, on monitoring engineer, on pulse oximetry. oh EKG completed in triage. Results shown to MD. 08:23 Duane Singh MD is Attending Physician. ford 08:24 Maintain EMS IV. Dressing intact. Site clean \T\ dry. oh 08:26 Gonsalo Cooley, SUNITA is Primary Nurse. oh 08:27 Bed in low position. Call light in reach. Side rails up X2. oh 08:28 Arm band placed on right wrist. oh 08:28 EKG done, by ED staff, reviewed by Duane Singh MD. em1 09:22 CT Chest Abdomen Pelvis W/O Contrast In Process Unspecified. EDMS 09:38 Kalyan Lennon is Hospitalizing Provider. ford 09:40 XRAY Chest (1 view) In Process Unspecified. EDMS 10:51 No provider procedures requiring assistance completed. oh Administered Medications: 09:06 Drug: morphine 2 mg Route: IVP; Site: left hand; oh 10:17 Follow up: Response: No adverse reaction oh 09:06 Drug: Zofran (Ondansetron) 4 mg Route: IVP; Site: left hand; oh 10:49 Follow up: Response: No adverse reaction oh 09:06 Drug: Aspirin Chewable Tablet 81 mg Route: PO; oh 10:16 Follow up: Response: No adverse reaction oh 10:16 Follow up: Response: No adverse reaction oh 09:40 Drug: Pepcid (famotidine) 20 mg Route: IVP; Site: left hand; oh 10:16 Follow up: Response: No adverse reaction oh 09:41 Drug: Nitro-Bid (nitroglycerin) Ointment 2 % 1 inches Route: Transdermal; Site: oh affected area; 12:09 Drug: Heparin (DE-Bolus No thrombolytic) - HEParin 60 units/kg {Co-Signature: tc5 oh (Susie Butler RN).} Route: IVP; Site: left hand; 12:43 Follow up: Response: No adverse reaction oh 12:11 Drug: Heparin (DE Drip) 12 units/kg/hr - (HEParin 32893 units, D5W 500 ml) oh {Co-Signature: tc5 (Susie Butler RN).} Route: IV; Rate: calculated rate; Site: left hand; Outcome: 09:41 Decision to Hospitalize by Provider. ford 10:51 Condition: stable oh 14:43 Patient left the ED. oh Signatures: Dispatcher [employer] Duane Valadez MD MD cha Martinez, Eric em1 Gonsalo Cooley, RN RN oh Susie Butler RN tc5 Corrections: (The following items were deleted from the chart) 09:10 08:41 CORONAVIRUS+MR.LAB.NITIN drawn and sent. oh [id number]
[2020-12-29 09:42] LABS: Albumin 3.4 g/dL (3.4-5.0); Bilirubin Direct 0.1 mg/dL (0-0.2); Bilirubin Total 0.4 mg/dL (0.2-1.0); Magnesium 2.6 mg/dL (1.8-2.4); Potassium 4.7 mmol/L (3.5-5.1); Protein, Total 7.7 g/dL (6.4-8.2); Troponin (Emerg Dept Use Only) 0.32 ng/mL (0.0-0.045)
--- NOTE | 2020-12-29 09:42 | EDPHYS ---
Physician Documentation [facility] Name: Qiana Valdez Age: 65 yrs Sex: Female : 1955 Arrival Date: 12/29/2020 Time: 08:18 Bed 16 Private MD: WILFRIDO Physician Duane Singh HPI: 12/29 09:03 This 65 yrs old Female presents to ER via EMS with complaints of chest pain ford and abdominal pain , sent from dialysis. 09:03 The patient or guardian reports chest pain that is located primarily in the substernal ford area, anterior aspect of right upper chest, anterior aspect of left upper chest, mid-sternal area, right breast and left breast. Onset: 7 hour(s) ago. The patient presents with abdominal pain in the upper abdomen, in the lower abdomen, abdominal distention in the upper abdomen, in the lower abdomen. Onset: The symptoms/episode began/occurred 2 day(s) ago. The pain does not radiate. The symptoms do not radiate. Associated signs and symptoms: none. The symptoms are described as dull. Modifying factors: The symptoms are alleviated by nothing. Associated signs and symptoms: Pertinent positives: abdominal pain, shortness of breath. The chest pain is described as a pressure. Historical: - Allergies: 10:49 No Known Allergies; oh - PMHx: 08:21 Chronic ischemic heart disease; Diabetes - IDDM; DIALYSIS MWF; ESRD; GERD; High oh Cholesterol; hyperparathyroidism; Hypertension; IRON DEFICIENCY ANEMIA; Myocardial infarction; Pacemaker; - Immunization history:: Adult Immunizations up to date. - Social history:: Patient/guardian denies using Smoking status: Patient denies any tobacco usage or history of. - Family history:: not pertinent. ROS: 09:03 Constitutional: Negative for fever, chills, and weight loss, Eyes: Negative for injury, ford pain, redness, and discharge, ENT: Negative for injury, pain, and discharge, Neck: Negative for injury, pain, and swelling, Respiratory: Negative for shortness of breath, cough, wheezing, and pleuritic chest pain, Back: Negative for injury and pain, : Negative for injury, bleeding, discharge, and swelling, MS/Extremity: Negative for injury and deformity, Skin: Negative for injury, rash, and discoloration, Neuro: Negative for headache, weakness, numbness, tingling, and seizure, Psych: Negative for depression, anxiety, suicide ideation, homicidal ideation, and hallucinations, Allergy/Immunology: Negative for hives, rash, and allergies, Endocrine: Negative for neck swelling, polydipsia, polyuria, polyphagia, and marked weight changes, Hematologic/Lymphatic: Negative for swollen nodes, abnormal bleeding, and unusual bruising. 09:03 Cardiovascular: Positive for chest pain, of the chest. 09:03 Abdomen/GI: Positive for abdominal pain, abdominal cramps, abdominal distension, of the right upper quadrant, left upper quadrant and left lower quadrant. Exam: 09:03 Constitutional: This is a well developed, well nourished patient who is awake, alert, ford and in no acute distress. Head/Face: Normocephalic, atraumatic. Eyes: Pupils equal round and reactive to light, extra-ocular motions intact. Lids and lashes normal. Conjunctiva and sclera are non-icteric and not injected. Cornea within normal limits. Periorbital areas with no swelling, redness, or edema. ENT: Nares patent. No nasal discharge, no septal abnormalities noted. Tympanic membranes are normal and external auditory canals are clear. Oropharynx with no redness, swelling, or masses, exudates, or evidence of obstruction, uvula midline. Mucous membranes moist. Neck: Trachea midline, no thyromegaly or masses palpated, and no cervical lymphadenopathy. Supple, full range of motion without nuchal rigidity, or vertebral point tenderness. No Meningismus. Chest/axilla: Normal chest wall appearance and motion. Nontender with no deformity. No lesions are appreciated. Cardiovascular: Regular rate and rhythm with a normal S1 and S2. No gallops, murmurs, or rubs. Normal PMI, no JVD. No pulse deficits. Respiratory: Lungs have equal breath sounds bilaterally, clear to auscultation and percussion. No rales, rhonchi or wheezes noted. No increased work of breathing, no retractions or nasal flaring. Back: No spinal tenderness. No costovertebral tenderness. Full range of motion. Skin: Warm, dry with normal turgor. Normal color with no rashes, no lesions, and no evidence of cellulitis. MS/ Extremity: Pulses equal, no cyanosis. Neurovascular intact. Full, normal range of motion. Neuro: Awake and alert, GCS 15, oriented to person, place, time, and situation. Cranial nerves II-XII grossly intact. Motor strength 5/5 in all extremities. Sensory grossly intact. Cerebellar exam normal. Normal gait. Psych: Awake, alert, with orientation to person, place and time. Behavior, mood, and affect are within normal limits. 09:03 Abdomen/GI: Inspection: distension, that is moderate, Bowel sounds: normal, Palpation: moderate abdominal tenderness, in the right upper quadrant, left upper quadrant and left lower quadrant, Liver: no appreciated palpable abnormalities, Hernia: not appreciated. Vital Signs: 08:18 BP 152 / 63; Pulse 60; Resp 20; Temp 97.3(T); Pulse Ox 98% on R/A; Weight 72.5 kg; oh Height 5 ft. 3 in. (160.02 cm); 09:13 BP 150 / 62; Pulse 63; Resp 20; Pulse Ox 97% on R/A; oh 10:08 BP 148 / 73; Pulse 60; Resp 19; Pulse Ox 97% on 2 lpm NC; oh 10:50 BP 151 / 69; Pulse 60; Resp 19; Pulse Ox 97% on 2 lpm NC; oh 08:18 Body Mass Index 28.31 (72.50 kg, 160.02 cm) oh MDM: 08:23 Patient medically screened. ford 09:17 Differential diagnosis: abnormal EKG, acute myocardial infarction, anxiety, chest wall ford pain, congestive heart failure Cholelithiasis gastritis, gastroesophageal reflux disease (GERD), pancreatitis, peptic ulcer disease, stable angina, unstable angina, cholecystitis, Cholelithiasis, diverticulitis, gastritis, myocardia ischemia or infarction, non-specific abd pain, pancreatitis, Peptic Ulcer Disease. HEART Score: History: Moderately Suspicious (1), ECG: Non specific repolarization disturbance / LBTB / PM (1), Age: > 45 and < 65 years (1), Risk Factors: > or = 3 Risk factors for atherosclerotic disease (2), [Hypercholesterolemia] [Hypertension] [DM] [+ Family HX] Troponin: < or = 1 x Normal Limit (0). The patient was given aspirin in the Emergency Department. The patient's deep vein thrombosis risk score was calculated as follows: Total Score: 0. This patient was found to be at low risk for a deep vein thrombosis by using the Well's assessment criteria. The patient's pulmonary embolism risk score was calculated as follows: Total Score: 0-2 points. This patient was found to be at low risk for a pulmonary embolism by using the Well's assessment criteria. CAPRI Risk Score: 1 - Three or more CAD risk factors, 1- Known CAD, 1 - ST deviation >0.5mm. Data reviewed: vital signs, nurses notes, lab test result(s), EKG, radiologic studies, CT scan, plain films. Data interpreted: case monitor: rate is 63 beats/min, rhythm is regular, Pulse oximetry: on room air is 97 %. Test interpretation: by ED physician or midlevel provider: ECG, plain radiologic studies. Counseling: I had a detailed discussion with the patient and/or guardian regarding: the historical points, exam findings, and any diagnostic results supporting the discharge/admit diagnosis, lab results, radiology results, the need for further work-up and treatment in the hospital. 12/29 08:48 Order name: Basic Metabolic Panel; Complete Time: 11:12 [facility] 12/29 08:48 Order name: CBC with Diff; Complete Time: 09:36 [facility] 12/29 08:48 Order name: LFT's; Complete Time: 11:12 [facility] 12/29 08:48 Order name: Magnesium; Complete Time: 11:12 [facility] 12/29 08:48 Order name: NT PRO-BNP; Complete Time: 11:12 [facility] 12/29 08:48 Order name: PT-INR; Complete Time: 09:36 [facility] 12/29 08:48 Order name: Troponin (emerg Dept Use Only); Complete Time: 11:12 [facility] 12/29 08:48 Order name: Lipase; Complete Time: 11:12 [facility] 12/29 10:03 Order name: SARS-COV-2 RT PCR; Complete Time: 11:12 [facility] 12/29 11:06 Order name: T4 Free [facility] 12/29 11:06 Order name: Basic Metabolic Panel [facility] 12/29 11:06 Order name: Basic Metabolic Panel [facility] 12/29 11:10 Order name: Thyroid Stimulating Hormone [facility] 12/29 08:48 Order name: XRAY Chest (1 view); Complete Time: 11: [facility] 12/29 08:55 Order name: CT Chest Abdomen Pelvis W/O Contrast; Complete Time: 11: [facility] 12/29 11:06 Order name: Echo with Doppler [facility] 12/29 11:10 Order name: Urinalysis [facility] 12/29 11:10 Order name: CBC with Automated Diff [facility] 12/29 11:10 Order name: CBC with Automated Diff [facility] 12/29 11:10 Order name: Troponin I [facility] 12/29 11:10 Order name: Troponin I [facility] 12/29 11:10 Order name: Troponin I [facility] 12/29 11:10 Order name: Troponin I [facility] 12/29 14:31 Order name: Glucose, Ancillary Testing [facility] 12/29 08:48 Order name: EKG; Complete Time: 08:49 [facility] 12/29 08:48 Order name: Cardiac monitoring; Complete Time: 09:07 [facility] 12/29 08:48 Order name: EKG - Nurse/Tech; Complete Time: 09:07 [facility] 12/29 08:48 Order name: IV Saline Lock; Complete Time: 09:07 [facility] 12/29 08:48 Order name: Labs collected and sent; Complete Time: 09:07 [facility] 12/29 08:48 Order name: O2 Per Protocol; Complete Time: 09:07 [facility] 12/29 08:48 Order name: O2 Sat Monitoring; Complete Time: 09:07 [facility] 12/29 11:10 Order name: Renal EDMS Administered Medications: 09:06 Drug: morphine 2 mg Route: IVP; Site: left hand; oh 10:17 Follow up: Response: No adverse reaction oh 09:06 Drug: Zofran (Ondansetron) 4 mg Route: IVP; Site: left hand; oh 10:49 Follow up: Response: No adverse reaction oh 09:06 Drug: Aspirin Chewable Tablet 81 mg Route: PO; oh 10:16 Follow up: Response: No adverse reaction oh 10:16 Follow up: Response: No adverse reaction oh 09:40 Drug: Pepcid (famotidine) 20 mg Route: IVP; Site: left hand; oh 10:16 Follow up: Response: No adverse reaction oh 09:41 Drug: Nitro-Bid (nitroglycerin) Ointment 2 % 1 inches Route: Transdermal; Site: oh affected area; 12:09 Drug: Heparin (MS-Bolus No thrombolytic) - HEParin 60 units/kg {Co-Signature: tc5 oh (Susie Butler RN).} Route: IVP; Site: left hand; 12:43 Follow up: Response: No adverse reaction oh 12:11 Drug: Heparin (MS Drip) 12 units/kg/hr - (HEParin 76799 units, D5W 500 ml) oh {Co-Signature: tc5 (Susie Butler RN).} Route: IV; Rate: calculated rate; Site: left hand; Disposition Summary: 12/29/20 09:41 Hospitalization Ordered Hospitalization Status: Inpatient Admission ford Provider: Kalyan Lennon cha Location: Telemetry/MedSurg (Inpatient) ford Condition: Fair ford Problem: new ford Symptoms: have improved ford Bed/Room Type: Standard ford Room Assignment: 424(12/29/20 13:20) bd Diagnosis - Chest pain, unspecified ford - Abdominal tenderness ford - Type 1 diabetes mellitus with hyperglycemia ford - End stage renal disease - on HD, M,W,F ford - Cardiomegaly ford - Unspecified combined systolic (congestive) and diastolic (congestive) heart failure ford - Non ST elevation MS ford Forms: - Medication Reconciliation Form ford - SBAR form ford Signatures: Dispatcher [employer] EDSarah Sky Corey, MD MD cha Harriott, One[place], RN RN oh Susie Butler RN [email or web address] Corrections: (The following items were deleted from the chart) 09:10 08:29 CORONAVIRUS+BRZ ordered. EDMS EDMS 13:20 09:41 ford bd
--- NOTE | 2020-12-29 09:44 | RAD REPORT ---
EXAM DESCRIPTION: CT - Chest Abd Pelvis Wo Con - 12/29/2020 9:19 am CLINICAL HISTORY: Chest pain;Abdominal distention;SOB COMPARISON: Chest Single View dated 12/29/2020 TECHNIQUE: Axial 5 millimeter thick images of the chest, abdomen and pelvis were obtained without IV contrast. Oral contrast was administered. All CT scans are performed using dose optimization technique as appropriate and may include automated exposure control or mA/KV adjustment according to patient size. FINDINGS: No focal mass or consolidation. Patient has several small 5 mm or less areas of nodularity scattered in the lung parenchyma with no one dominant nodule. Overall prominence of the interstitial pattern evident. No endobronchial lesions are seen. No pneumothorax. Small right pleural effusion is present with posterior gutter atelectasis. Trace pleural effusion on the left. No chest wall mass or abnormal axillary lymphadenopathy seen. Mediastinal and hilar regions show no suspicious mass or ly mphadenopathy. Cardiomegaly is present without pericardial effusion. Sternotomy wires are in place. Pacemaker leads are seen. The liver, spleen and pancreas show no significant findings for non contrast imaging. Small gallston es are seen layering on the dependent portion of the gallbladder wall. No wall thickening or edema. N o abnormal biliary tree dilatation. Atrophic kidneys are present. Arterial calcifications are present. No hydronephrosis or suspicious re nal mass. Urinary bladder is contracted. No adrenal abnormalities. Uterus and ovaries show no suspic ious findings. No dilated bowel loops or focal ball bowel wall thickening. No free air or pneumatosis. Only trace a ronny of free fluid are present in the peritoneal cavity. No acute colon process seen. Hyperdense ma terial in the colon lumen may be contrast from a remote study or medication. The appendix is unremark able. No hernia, mass or bulky lymphadenopathy. Dense arterial tree calcifications are present. Left renal artery stent is in place. No acute bone fi nding. Portal vein cannot be assessed on a noncontrast study. IMPRESSION: CT chest imaging shows a CHF/volume overload presentation with no acute or emergent CT c hest finding. Cholelithiasis is present without evidence for acute cholecystitis. No biliary dilatation. Only trace amounts of free fluid are present in the peritoneal cavity. No acute or emergent finding i n the abdomen or pelvis.
[2020-12-29] MEDS ORDERED: NITROGLYCERIN 1 GM PKT TD ONE (09:52)
[2020-12-29] MEDS ORDERED: FAMOTIDINE 20 MG/2 ML VIAL IV ONE (09:52)
[2020-12-29] MEDS ORDERED: ACETAMINOPHEN 500 MG TAB PO PRN (11:04)
[2020-12-29] MEDS ORDERED: ONDANSETRON 4 MG/2 ML VIAL IV PRN (11:04)
[2020-12-29] MEDS ORDERED: CALCIUM CARBONATE CHEW 500MG TAB PO PRN (11:05)
[2020-12-29] MEDS ORDERED: GUAIFENESIN/CODEINE 5ML UCUP PO PRN (11:08)
--- NOTE | 2020-12-29 11:11 | P.HP ---
Certification for Inpatient Patient admitted to: Inpatient With expected LOS: >2 Midnights Patient will require the following post-hospital care: None Practitioner: I am a practitioner with admitting privileges, knowledge of patient current condition, hospital course, and medical plan of care. Services: Services provided to patient in accordance with Admission requirements found in Title 42 Section 412.3 of the Code of Federal Regulations <NimihsasamCt tierneyImmanuel - Last Filed: 12/29/20 15:49> Patient admitted to: Inpatient With expected LOS: >2 Midnights <Viraj Nair - Last Filed: 12/29/20 17:46> Patient History Date of Service: 12/29/20 Primary Care Provider: Dr. Jackson <Immanuel Dumont - Last Filed: 12/29/20 15:49> Date of Service: 12/29/20 Reason for admission: Chest pain History of Present Illness: Patient is a 65-year-old female with a past medical history significant for DM, ESRD, CHF, GERD, HLD, hypertension, ANDRY,CAD with stents, CABG, pacemaker who presents with complaint of chest pain that has been ongoing intermittently since yesterday. Patient stated that chest pain is located in the substernal chest area. Patient rated pain as 6/10 and described pain as pressure in quality. Patient reports left upper quadrant abdominal pain that has been ongoing for the past 2 weeks. Patient rated pain as 9/10 and described pain as burning quality. Patient reports associated signs and symptoms of bilateral lower extremity edema and loss of appetite. Patient denies any other signs or symptoms. Symptoms are aggravated or relieved by nothing. Patient reported that she went to dialysis today but could not perform dialysis due to complaints of chest pain. Patient was brought to the hospital due to worsening symptoms. Home medications list reviewed: No - Past Medical/Surgical History Diabetic: Yes -: Hypertension -: NIDDM -: ESRD - MWF -: Nonfuctioning LLE fistula -: Hyperlipidemia -: GERD -: Chronic ischemic heart disease -: Hyperparathyroidism -: anemia -: iron deficiency -: COVID-19 01/21/2020 -: Triple bypass 2016 -: Pacemaker -: Tubal ligation -: Fistula aneursym reconstruction 4 times -: Bilateral cataract surgery Psychosocial/ Personal History: Lives at home - Family History Mother -: Heart disease - Social History Smoking Status: Never smoker Alcohol use: No CD- Drugs: No Caffeine use: No Place of Residence: Home <Viraj Nair - Last Filed: 12/29/20 17:46> Allergies No Known Allergies Allergy (Verified 02/20/20 21:51) Home Medications: Aspirin 81 mg PO DAILY 07/15/20 Atorvastatin Calcium [Lipitor] 80 mg PO BEDTIME 07/15/20 Calcium Carbonate [Tums Regular*] 500 mg PO TID PRN 07/15/20 Emla 1 appl TOP SEECOM 07/15/20 Hydralazine HCl [Apresoline] 50 mg PO BID 07/15/20 Isosorbide Mononitrate [Isosorbide Mononitrate ER] 30 mg PO DAILY 07/15/20 Lactulose 30 gm PO DAILYPRN PRN 07/15/20 Metoclopramide [Reglan*] 5 mg PO TIDWM 07/15/20 NIFEdipine [Nifedipine ER] 60 mg PO DAILY 07/15/20 Pantoprazole [Protonix Tab*] 40 mg PO DAILY 07/15/20 Sennosides/Docusate Sodium [Senexon-S 50-8.6 mg Tablet] 1 each PO BID 07/15/20 Sucroferric Oxyhydroxide [Velphoro] 500 mg PO TIDWM 07/15/20 Vit B Comp C/Folic Acid/Vit D3 [Dialyvite 800 Plus D Wafer] 1 each PO DAILY 07/15/20 Vitamin E 400 unit PO DAILY 07/15/20 Clopidogrel Bisulfate [Plavix*] 75 mg PO DAILY 30 Days #30 tablet 07/16/20 Metoprolol Tartrate [Lopressor] 12.5 mg PO BID 30 Days #30 tab 07/16/20 Review of Systems General: Unremarkable Eyes: Unremarkable ENT: Unremarkable Respiratory: Unremarkable Cardiovascular: Chest Pain Gastrointestinal: Unremarkable Genitourinary: Unremarkable Musculoskeletal: Pedal edema Neurological: Unremarkable <Viraj Nair - Last Filed: 12/29/20 17:46> Physical Examination - Studies Laboratory Data (last 24 hrs) 12/29/20 08:55: PT 11.2, INR 0.97 12/29/20 08:55: WBC 3.30 L, Hgb 10.6 L, Hct 31.9 L, Plt Count 106 L 12/29/20 08:55: Sodium 135 L, Potassium 4.7, BUN 72 H, Creatinine 8.53 H*, Glucose 162 H, Magnesium 2.6 H, Total Bilirubin 0.4, AST 42 H, ALT 62, Alkaline Phosphatase 183 H, Lipase 709 H <Immanuel Dumont - Last Filed: 12/29/20 15:49> - Physical Exam General: Alert, Oriented x3 HEENT: Atraumatic, PERRLA, Mucous membr. moist/pink, EOMI, Sclerae nonicteric Neck: Supple, 2+ carotid pulse no bruit, No LAD, Without JVD or thyroid abnormality Respiratory: Clear to auscultation bilaterally, Normal air movement Cardiovascular: Regular rate/rhythm, Normal S1 S2 Capillary refill: <2 Seconds Gastrointestinal: Normal bowel sounds, No tenderness Musculoskeletal: No tenderness Integumentary: No rashes Neurological: Normal gait, Normal speech, Normal tone, Normal affect Lymphatics: No axilla or inguinal lymphadenopathy External genitalia: Deferred Rectal: Deferred - Studies Laboratory Data (last 24 hrs) 12/29/20 08:55: PT 11.2, INR 0.97 12/29/20 08:55: WBC 3.30 L, Hgb 10.6 L, Hct 31.9 L, Plt Count 106 L 12/29/20 08:55: Sodium 135 L, Potassium 4.7, BUN 72 H, Creatinine 8.53 H*, Glucose 162 H, Magnesium 2.6 H, Total Bilirubin 0.4, AST 42 H, ALT 62, Alkaline Phosphatase 183 H, Lipase 709 H <Viraj Nair - Last Filed: 12/29/20 17:46> Assessment and Plan Physician Review Additional Text: COVID: Negative CT Scan: FINDINGS: No focal mass or consolidation. Patient has several small 5 mm or less areas of nodularity scattered in the lung parenchyma with no one dominant nodule. Overall prominence of the interstitial pattern evident. No endobronchial lesions are seen. No pneumothorax. Small right pleural effusion is present with posterior gutter atelectasis. Trace pleural effusion on the left. No chest wall mass or abnormal axillary lymphadenopathy seen. Mediastinal and hilar regions show no suspicious mass or lymphadenopathy. Cardiomegaly is present without pericardial effusion. Sternotomy wires are in place. Pacemaker leads are seen. The liver, spleen and pancreas show no significant findings for non contrast imaging. Small gallstones are seen layering on the dependent portion of the gallbladder wall. No wall thickening or edema. No abnormal biliary tree dilatation. Atrophic kidneys are present. Arterial calcifications are present. No hydronephrosis or suspicious renal mass. Urinary bladder is contracted. No adrenal abnormalities. Uterus and ovaries show no suspicious findings. No dilated bowel loops or focal ball bowel wall thickening. No free air or pneumatosis. Only trace amounts of free fluid are present in the peritoneal cavity. No acute colon process seen. Hyperdense material in the colon lumen may be contrast from a remote study or medication. The appendix is unremarkable. No hernia, mass or bulky lymphadenopathy. Dense arterial tree calcifications are present. Left renal artery stent is in place. No acute bone finding. Portal vein cannot be assessed on a noncontrast study. IMPRESSION: CT chest imaging shows a CHF/volume overload presentation with no acute or emergent CT chest finding. Cholelithiasis is present without evidence for acute cholecystitis. No biliary dilatation. Only trace amounts of free fluid are present in the peritoneal cavity. No acute or emergent finding in the abdomen or pelvis. Impression: Chest pain with elevated troponin secondary to NSTEMI with hx of CAD/CABG/Pacemaker HTN ESRD on Hemodialysis Plan: Patient seen and evaluated. Agree with [employer]PER plan of care. Case discussed with Cardiology. Patient to get heart catheterization to further evaluate. She only received one hour of dialysis earlier today. She will need dialysis after heart cath. Await findings. Will continue to monitor. Continue with home meds. <Immanuel Dumont - Last Filed: 12/29/20 15:49> - Plan --NSTEMI. Will trend troponin--currently elevated. Cardiology consulted. Patient placed on heparin drip. Telemetry to monitor for any significant arrhythmia. Will await further recommendation from soap inspector. --ESRD. On hemodialysis schedule MWF. Nephrology consulted. Patient scheduled for dialysis today. --History of CAD with stents, CABG and pacemaker. Continue aspirin, Plavix and statin. --HLD. Continue statin. --GERD. Continue Protonix --Hypertension. Poor controlled. Continue home medications and labetolol prn --DVT prophylaxis with heparin Drip I have had discussion about advanced directives with the patient during this hospital admission. Addressed code status and goals of care. Spent more than 30 minutes. Case discussed withpatient and nurse. The following document was completed using voice recognition software. This can produce electric arc furnace operator errors that can at times significantly distort words and phrases. Please interpret any aspect of the note that is nonsensical in light of this fact. Discharge Plan: Home Plan to discharge in: 48 Hours - Advance Directives Does patient have a Living Will: No Does patient have a Durable POA for Healthcare: No - Code Status/Comfort Care Code Status Assessed: Yes Code Status: Full Code Physician Review: Patient Assessed, Agree with Above Assessment and Plan Critical Care: No <Viraj Nair E - Last Filed: 12/29/20 17:46>
[2020-12-29] MEDS ORDERED: EMLA TOP SCH (11:15)
[2020-12-29 11:33] LABS: Thyroid Stimulating Hormone 1.53 uIU/mL (0.360-3.740)
[2020-12-29] MEDS ORDERED: LACTULOSE 20 GM/30 ML UCUP PO PRN (11:59)
[2020-12-29] MEDS: METOCLOPRAMIDE 5 MG TAB PO SCH ×2 (12:00→17:00)
[2020-12-29] MEDS: HOME MED 1 EA UNK (Sucroferric Oxyhydroxide [Velphoro] 500 MG Tab.Chew) PO SCH ×2 (12:00→17:00)
[2020-12-29] MEDS ORDERED: HEPARIN/D5W 25,000 UNIT/500 ML BAG IV ONE (12:14)
[2020-12-29 12:47] VITALS: BMI 28.1
[2020-12-29] MEDS ORDERED: NA CHLORIDE 0.9% 500 ML ONE (14:48)
[2020-12-29] MEDS ORDERED: LIDOCAINE 1% 20 ML MDV ONE (15:37)
[2020-12-29] MEDS ORDERED: HEPA 1000U/500MLS 2,000 UNIT/1,000 ML BAG IV ONE (15:38)
[2020-12-29] MEDS ORDERED: FENTANYL CITR 100 MCG/2 ML ONE (15:38)
[2020-12-29] MEDS ORDERED: NITROGLYCERIN 100 MCG/ML SYR (for cath lab use only) IV ONE (15:38)
[2020-12-29] MEDS ORDERED: ATROPINE SULF 1 MG/10 ML SYR IV ONE (15:38)
[2020-12-29] MEDS ORDERED: NITROGLYCERIN/D5W 0 MG/0 ML BTL IV ONE (15:38)
[2020-12-29] MEDS ORDERED: HEPARIN 5000 UNIT/ML 1 ML VIAL ONE (15:38)
[2020-12-29] MEDS ORDERED: MIDAZOLAM HCL 2 MG/2 ML INJ ONE (15:38)
--- NOTE | 2020-12-29 15:38 | CON ---
Date of Consultation: 12/29/2020 Reason For Consultation: Chest pain and elevated troponin. History Of Present Illness: This is a middle-aged female with history of end-stage renal disease, on hemodialysis. She has been having chest pain, pressure like on and off since last night, went to e dialysis today and they did not do dialysis and sent her to the emergency room. She has history of hypertension, diabetes, coronary artery disease status post 3-vessel bypass and has recent stent of her diagonal branch back in June. Still having some chest pain, relieved some with nitroglycerin. Past Medical History: As outlined above in HPI. Medications: Refer reconciliation sheet for detailed list. Allergies: NO KNOWN ALLERGIES. Family History: No premature coronary artery disease or cancer. Social History: Does not smoke or drink. Does not use any drugs. Review of Systems: All systems reviewed and they were negative except as mentioned in the HPI. Physical Examination: Vital Signs: Reviewed. Head and Neck: Pupils are equal, reactive to light. Intact eye movements. No JVD. No cervical lym phadenopathy. Neck: Supple. Thyroid is not enlarged. Lungs: Clear to auscultation bilaterally. No rhonchi, rales, or crackles. No accessory muscle use. Heart: Regular rate and rhythm. No extra sounds. Abdomen: Soft, nontender. Bowel sounds positive. No organomegaly. No masses or hernia. No rigidi ty or rebound. Extremities: No edema, clubbing, or cyanosis. Intact pulses. Skin: No rash noted. Neurologic: Alert, awake, oriented x3. No acute focal deficits appreciated. Investigations: Creatinine is 8.53. Troponin is 0.82. NT-proBNP is 75,983. Assessment And Recommendations: 1.Chest pain with elevated troponin suggestive of non-ST elevation myocardial infarction. The patie nt is n.p.o. We will take her to the [facility] for coronary angiogram and plan accordingly. Start he r on baby aspirin and nitroglycerin patch and blood pressure control. 2.End-stage renal disease. Consult Nephrology for in-house dialysis. SR/MODL Voice ID: [id number] Report ID: [id number]
[2020-12-29] MEDS ORDERED: HYDRALAZINE HCL 20 MG/ML VIAL ONE (16:55)
[2020-12-29] MEDS ORDERED: GLUCAGON 1 MG/VIAL IM PRN (17:26)
[2020-12-29] MEDS ORDERED: D50W 25 GM/50 ML SYRINGE IV PRN (17:26)
--- NOTE | 2020-12-29 17:45 | OP ---
Date of Procedure: 12/29/2020 Surgeon: ANUM OCONNOR Procedure Performed: Selective coronary angiogram with bypass graft study. Indication: Non-ST elevation myocardial infarction. Access: Right femoral artery 6-Japanese closed with StarClose. Complications: None. Bleeding: Less than 10 mL. Description Of Procedure: After risks, benefits, and alternatives were explained, the patient agreed to procedure and signed informed consent. The [facility], prepped and draped in usual sterile fashion. Then, we accessed the right femoral artery us ing ultrasound and micropuncture kit and placed a 6-Japanese Slender sheath and then took a 6-Japanese JL 4 catheter into the aortic root, engaged the left main, took standard views and then 6-Japanese JR4 cat heter into the aortic root, engaged the left main and SVG to OM and SVG to RCA and the BAUER, and took the catheter out. Sheath was removed and StarClose was applied with good hemostasis. Findings: 1.Left main is large and normal. 2.LAD; diffuse proximal disease, 80% stenosis, possible DICTIONARY EDITOR at the mid portion and diagonal 1 branch has a patent stent that was placed recently. 3.Left circumflex; moderate size with proximal 30% to 40% stenosis and possible DICTIONARY EDITOR of the OM1 branc h. 4.RCA; large dominant with diffuse proximal to mid 80% stenosis. Grafts: 1.Patent BAUER to LAD. 2.Patent SVG to OM. 3.Patent SVG to right PDA, however, little slow flow and ectasia. Conclusion: 1.Severe [place] coronary artery disease. 2.Patent BAUER to LAD, SVG to OM, and SVG to RCA; however, the SVG to RCA has slow flow with some ect stephanie. Recommendations: If the patient continues to be symptomatic, plan for PCI of the [place] RCA with ath erectomy which can be done in [place] as an outpatient. No need for anticoagulation during this hosp ital stay. SR/LYRICL Voice ID: [id number] Report ID: [id number]
[2020-12-29] MEDS ORDERED: HEPARIN/D5W 25,000 UNIT/500 ML BAG IV SCH (18:00)
[2020-12-29] MEDS: HYDROCODONE/APAP 5/325 MG TAB PO PRN (18:38)
[2020-12-29] MEDS: HYDRALAZINE HCL 25 MG TABLET PO SCH (19:38)
[2020-12-29] MEDS: DOCUSATE NA/SENNA CONC 1 TAB PO SCH (19:38)
[2020-12-29] MEDS: INSULIN -REGULAR HUMAN 50 UNIT/0.5 ML ML SQ SCH (19:39)
[2020-12-29] MEDS: METOPROLOL TAR 25 MG TAB PO SCH (19:39)
[2020-12-29] MEDS ORDERED: ATORVASTATIN 80 MG TAB PO SCH (21:00)
[2020-12-29] MEDS ORDERED: HEPARIN 5000 UNIT/ML 1 ML VIAL SQ SCH (21:00)
[2020-12-29 21:23] LABS: Potassium 4.7 mmol/L (3.5-5.1)
--- NOTE | 2020-12-29 23:42 | CON ---
Date of Consultation: 12/29/2020 Chief Complaint: End-stage renal disease, chest pain, congestive heart failure. History Of Present Illness: The patient is a 65-year-old woman with past medical history of diabetes mellitus, diabetic kidney disease, hypertension, hypertensive heart and kidney disease, coronary artery disease with previous stent placement and CABG procedure done for severe coronary artery disease. The patient has pacemaker placed. She has history of GERD and congestive heart failure. The patient presented to the hospital after she developed chest pain, substernal without radiation. The patient was transferred [facility] because suddenly she developed chest pain, which was 9/10 and substernal. According to the patient, she has had similar pain over last 2 weeks, progressively worse. She describes has pain and burning sensation in substernal area. The patient was complaining of generalized weakness, loss of appetite, and extremity edema 3+. Review of Systems: Constitutional: Denies fever, chills. Eyes: Denies vision changes. Ears, Nose, Mouth, and Throat: Denies sore throat, earache. Respiratory: Has shortness of breath with activities and also at rest. Denies cough, hemoptysis. Cardiovascular: Complaining of chest pain, substernal, burning quality. GI: Denies nausea, vomiting. : Denies dysuria, hematuria. All other systems reviewed and all are negative. Past Medical History: Hypertension, noninsulin-dependent diabetes mellitus, end-stage renal disease, hyperlipidemia, GERD, chronic ischemic heart disease, congestive heart failure, hyperparathyroidism, anemia, and CKD. Status post CABG, status post dialysis access procedure, AV fistula placement, history of pacemaker, tubal ligation, aneurysm repair 4 times. 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 Bilateral cataract surgeries, iron deficiency. COVID pneumonia, January 21, 2020. Family History: Mother, heart disease. Social History: Denies tobacco, alcohol, illicit drugs. Physical Examination: General: The patient is awake, alert, follows commands. Eyes: Anicteric sclerae. Ears, Nose, Mouth, and Throat: Oral mucosa moist. No pallor. Neck: Supple. No bruits. Lungs: Crackles bilaterally at bases. Heart: S1, S2. No pericardial friction rub. Abdomen: Soft, benign, nontender, obese. Extremities: Edema present in both legs. No clubbing. No cyanosis. Laboratory Data: INR 0.97, PT 11.2. WBC 3.3, platelet count 106, hemoglobin 10.6. Creatinine 8.53, glucose 162, BUN 72, potassium 4.7, sodium 135. Magnesium 2.6. Lipase 709. AP 183. Total bilirubin 0.4. Impression And Plan: 1. Fluid overload, end-stage renal disease. The patient will have dialysis with ultrafiltration. 2. Coronary artery disease. Chest pain. The patient is admitted for acute coronary syndrome associated with congestive heart failure in setting of fluid overload. The patient will need dialysis to control fluid overload, provide metabolic clearance and obtain negative fluid balance. This will be done after procedure is completed today. The patient is to have cardiac catheterization for acute coronary syndrome. The patient has severe coronary artery disease. 3. Hypertension. Continue blood pressure medication. 4. Anemia on chronic kidney disease. Continue MELA according to hemoglobin level. 5. Renal osteodystrophy. Monitor phosphorus level. Adjust binders according to the lab result. GLENYS/EVAN Voice ID: [id number] Report ID: [id number] SHRAVAN
[2020-12-30] MEDS: LABETALOL 20 MG/4ML SYRINGE IV PRN ×2 (00:07→04:43)
[2020-12-30] MEDS: HYDROCODONE/APAP 5/325 MG TAB PO PRN (00:11)
[2020-12-30] MEDS ORDERED: MELATONIN 5 MG TABLET PO PRN (00:16)
[2020-12-30 00:43] VITALS: TEMP 97
[2020-12-30 05:03] LABS: Absolute Lymphocytes (CBC) 0.7 K/uL (0.7-4.9); Hematocrit 29.5 % (36.0-45.0); Lymphocytes % 27.4 % (15.3-44.8); MPV 8.3 fL (7.6-11.3)
[2020-12-30 05:38] LABS: Potassium 4.3 mmol/L (3.5-5.1)
[2020-12-30 06:07] LABS: White Blood Cell Scan OK (OK)
[2020-12-30 06:08] LABS: Blood Morphology Comment NOT SEEN (NOT SEEN); Platelet Estimate ADEQ
--- NOTE | 2020-12-30 06:34 | P.PN ---
Subjective Date of Service: 12/30/20 Primary Care Provider: Dr. Jackson Chief Complaint: Chest pain Subjective: Improving, Doing well Physical Examination - Vital Signs Temperature: 97 F Blood Pressure: 155/70 Pulse: 65 Respirations: 18 Pulse Ox (%): 92 - Studies Laboratory Data (last 24 hrs) 12/29/20 08:55: PT 11.2, INR 0.97 12/29/20 08:55: WBC 3.30 L, Hgb 10.6 L, Hct 31.9 L, Plt Count 106 L 12/29/20 08:55: Sodium 135 L, Potassium 4.7, BUN 72 H, Creatinine 8.53 H*, Glucose 162 H, Magnesium 2.6 H, Total Bilirubin 0.4, AST 42 H, ALT 62, Alkaline Phosphatase 183 H, Lipase 709 H Assessment & Plan Discharge Plan: Home Plan to discharge in: 24 Hours Physician Review Additional Text: COVID: Negative CT Scan: FINDINGS: No focal mass or consolidation. Patient has several small 5 mm or less areas of nodularity scattered in the lung parenchyma with no one dominant nodule. Overall prominence of the interstitial pattern evident. No endobronchial lesions are seen. No pneumothorax. Small right pleural effusion is present with posterior gutter atelectasis. Trace pleural effusion on the left. No chest wall mass or abnormal axillary lymphadenopathy seen. Mediastinal and hilar regions show no suspicious mass or lymphadenopathy. Cardiomegaly is present without pericardial effusion. Sternotomy wires are in place. Pacemaker leads are seen. The liver, spleen and pancreas show no significant findings for non contrast imaging. Small gallstones are seen layering on the dependent portion of the gallbladder wall. No wall thickening or edema. No abnormal biliary tree dilatation. Atrophic kidneys are present. Arterial calcifications are present. No hydronephrosis or suspicious renal mass. Urinary bladder is contracted. No adrenal abnormalities. Uterus and ovaries show no suspicious findings. No dilated bowel loops or focal ball bowel wall thickening. No free air or pneumatosis. Only trace amounts of free fluid are present in the peritoneal cavity. No acute colon process seen. Hyperdense material in the colon lumen may be contrast from a remote study or medication. The appendix is unremarkable. No hernia, mass or bulky lymphadenopathy. Dense arterial tree calcifications are present. Left renal artery stent is in place. No acute bone finding. Portal vein cannot be assessed on a noncontrast study. IMPRESSION: CT chest imaging shows a CHF/volume overload presentation with no acute or emergent CT chest finding. Cholelithiasis is present without evidence for acute cholecystitis. No biliary dilatation. Only trace amounts of free fluid are present in the peritoneal cavity. No acute or emergent finding in the abdomen or pelvis. Heart Catheterization: Date of Procedure: 12/29/2020 Surgeon: ANUM OCONNOR Procedure Performed: Selective coronary angiogram with bypass graft study. Indication: Non-ST elevation myocardial infarction. Access: Right femoral artery 6-Luxembourgish closed with StarClose. Complications: None. Findings: 1. Left main is large and normal. 2. LAD; diffuse proximal disease, 80% stenosis, possible SPECIALIST ICU at the mid portio n and diagonal 1 branch has a patent stent that was placed recently. 3. Left circumflex; moderate size with proximal 30% to 40% stenosis and possible SPECIALIST ICU of the OM1 branch. 4. RCA; large dominant with diffuse proximal to mid 80% stenosis. Grafts: 1. Patent BAUER to LAD. 2. Patent SVG to OM. 3. Patent SVG to right PDA, however, little slow flow and ectasia. Conclusion: 1. Severe [place] coronary artery disease. 2. Patent BAUER to LAD, SVG to OM, and SVG to RCA; however, the SVG to RCA has slow flow with some ectasia. Recommendations: If the patient continues to be symptomatic, plan for PCI of the [place] RCA with atherectomy which can be done in [place] as an outpatient. No need for anticoagulation during this hospital stay. Physical Exam: General: Patient alert, cooperative no acute distress Neck: Supple Heart: Regular rate and rhythm. Lungs: Clear to auscultation Abdomen: Soft nontender nondistended Extremities: Good range of motion to upper and lower extremities without any focal deficits. Impression: Chest pain with elevated troponin secondary to NSTEMI with hx of CAD/CABG/Pacemaker HTN ESRD on Hemodialysis Plan: Patient doing well at this time. No complaints noted. Patient had heart catheterization yesterday. Findings show left main large and normal. LAD showing diffuse proximal disease with 80% stenosis. Left circumflex shows moderate size with proximal 30 to 40% stenosis. RCA large dominant with diffuse proximal to mid 80% stenosis. Conclusions severe CAD. Patent BAUER to LAD, SVG to OM and SVG to RCA however the SVG to RCA was slow flow with some ectasia.recommendations is for the edition continue with current medications. If patient becomes symptomatic in the future plan for PCI of the [place] RCA with artherotomy which would be done in [place] as an outpatient. No need for anticoagulation at this time. We will plan for discharge today. Time Spent Managing Pts Care (In Minutes): 55
[2020-12-30] MEDS: INSULIN -REGULAR HUMAN 50 UNIT/0.5 ML ML SQ SCH (07:30)
[2020-12-30] MEDS: HOME MED 1 EA UNK (Sucroferric Oxyhydroxide [Velphoro] 500 MG Tab.Chew) PO SCH (08:00)
[2020-12-30 08:58] VITALS: O2SAT 93
[2020-12-30] MEDS ORDERED: VITAMIN E 400 IU CAP PO SCH (09:00)
[2020-12-30] MEDS ORDERED: FOLIC ACID PO SCH (09:00)
[2020-12-30] MEDS ORDERED: VIT B COMP C PO SCH (09:00)
[2020-12-30] MEDS ORDERED: VIT D3 PO SCH (09:00)
[2020-12-30] MEDS ORDERED: ISOSORBIDE MONO SR 30 MG TAB PO SCH (09:00)
[2020-12-30] MEDS ORDERED: ASPIRIN 81 MG CHEWABLE TABLET PO SCH (09:00)
[2020-12-30] MEDS ORDERED: [UNRECOGNIZED DRUG - OTHER] PO SCH (09:00)
[2020-12-30] MEDS ORDERED: PANTOPRAZOLE 40MG TABLET PO SCH (09:00)
[2020-12-30] MEDS ORDERED: NIFEDIPINE XL 60 MG TABLET PO SCH (09:00)
[2020-12-30] MEDS ORDERED: CLOPIDOGREL 75 MG TABLET PO SCH (09:00)
[2020-12-30] MEDS: METOCLOPRAMIDE 5 MG TAB PO SCH (09:06)
[2020-12-30] MEDS: HYDRALAZINE HCL 25 MG TABLET PO SCH (09:06)
[2020-12-30] MEDS: DOCUSATE NA/SENNA CONC 1 TAB PO SCH (09:06)
[2020-12-30] MEDS: METOPROLOL TAR 25 MG TAB PO SCH (09:07)
[2020-12-30 09:27] VITALS: BP 155/70
--- NOTE | 2020-12-30 09:28 | P.DS ---
Admission Date: 12/29/20 Discharge Date: 12/30/20 Primary Care Provider: Dr. Jackson Disposition: ROUTINE DISCHARGE Discharge Condition: GOOD Reason for Admission: Chest pain Consultations: Nephrology-Dr. Ortiz Cardiology-Dr. Oconnor Procedures: COVID: Negative CT Scan: FINDINGS: No focal mass or consolidation. Patient has several small 5 mm or less areas of nodularity scattered in the lung parenchyma with no one dominant nodule. Overall prominence of the interstitial pattern evident. No endobronchial lesions are seen. No pneumothorax. Small right pleural effusion is present with posterior gutter atelectasis. Trace pleural effusion on the left. No chest wall mass or abnormal axillary lymphadenopathy seen. Mediastinal and hilar regions show no suspicious mass or lymphadenopathy. Cardiomegaly is present without pericardial effusion. Sternotomy wires are in place. Pacemaker leads are seen. The liver, spleen and pancreas show no significant findings for non contrast imaging. Small gallstones are seen layering on the dependent portion of the gallbladder wall. No wall thickening or edema. No abnormal biliary tree d ilatation. Atrophic kidneys are present. Arterial calcifications are present. No hydronephrosis or suspicious renal mass. Urinary bladder is contracted. No adrenal abnormalities. Uterus and ovaries show no suspicious findings. No dilated bowel loops or focal ball bowel wall thickening. No free air or pneumatosis. Only trace amounts of free fluid are present in the peritoneal cavity. No acute colon process seen. Hyperdense material in the colon lumen may be contrast from a remote study or medication. The appendix is unremarkable. No hernia, mass or bulky lymphadenopathy. Dense arterial tree calcifications are present. Left renal artery stent is in place. No acute bone finding. Portal vein cannot be assessed on a noncontrast study. IMPRESSION: CT chest imaging shows a CHF/volume overload presentation with no acute or emergent CT chest finding. Cholelithiasis is present without evidence for acute cholecystitis. No biliary dilatation. Only trace amounts of free fluid are present in the peritoneal cavity. No acute or emergent finding in the abdomen or pelvis. Heart Catheterization: Date of Procedure: 12/29/2020 Surgeon: ANUM OCONNOR Procedure Performed: Selective coronary angiogram with bypass graft study. Indication: Non-ST elevation myocardial infarction. Access: Right femoral artery 6-Cuban closed with StarClose. Complications: None. Findings: 1. Left main is large and normal. 2. LAD; diffuse proximal disease, 80% stenosis, possible DENTAL DIRECTOR at the mid portion and diagonal 1 branch has a patent stent that was placed recently. 3. Left circumflex; moderate size with proximal 30% to 40% stenosis and possible DENTAL DIRECTOR of the OM1 branch. 4. RCA; large dominant with diffuse proximal to mid 80% stenosis. Grafts: 1. Patent BAUER to LAD. 2. Patent SVG to OM. 3. Patent SVG to right PDA, however, little slow flow and ectasia. Conclusion: 1. Severe [place] coronary artery disease. 2. Patent BAUER to LAD, SVG to OM, and SVG to RCA; however, the SVG to RCA has slow flow with some ectasia. Recommendations: If the patient continues to be symptomatic, plan for PCI of the [place] RCA with atherectomy which can be done in [place] as an outpatient. No need for anticoagulation during this hospital stay. Medical Problem List: Chest pain with elevated troponin secondary to NSTEMI with hx of CAD/CABG/Pacemaker HTN Hyperlipidemia GERD ESRD on Hemodialysis Brief History of Present Illness: 65-year-old female with history of diabetes, hypertension, end-stage renal disease on hemodialysis, CAD with prior stent, CABG and pacemaker. Patient presented with chest pain. Patient was admitted for further evaluation and treatment. Hospital Course: Patient presented with chest pain. Patient with history of CAD, CABG, pacemaker. Patient was admitted for further evaluation and treatment. Patient was seen by cardiology. Cardiology recommended heart catheterization to further evaluate. Heart catheterization showed left main large and normal. LAD showed diffuse proximal disease with 80% stenosis. Left circumflex showed moderate sized with proximal 30 to 40% stenosis. RCA was large dominant with diffuse proximal to mid 80% stenosis. Her previous graft showed patent BAUER to LAD, patent SVG to OM, and patent SVG to right PDA however slow flow and ectasia noted. Conclusion showed severe [place] coronary artery disease. Recommendation was to continue with current treatment plan and medication. If the patient were to become symptomatic in the future plan for PCI of the [place] RCA with arthrectomy which can be done in [place] as an outpatient. At discharge patient will continue with her current medication including aspirin 81 mg daily, Plavix 25 mg daily, Lipitor 80 mg daily, isosorbide mononitrate ER 30 mg daily, metoprolol 12.5 mg 1 pill twice daily, nifedipine ER 60 mg daily, and hydralazine 50 mg 1 pill twice daily. Recommend follow-up with cardiology in 1 week to follow-up his hospitalization and continue her care. Patient with end-stage renal disease on hemodialysis. Patient will continue with dialysis as directed. Patient with hypertension, hyperlipidemia. Continue with above plan of care. Patient with GERD. At discharge patient will continue with Protonix 40 mg daily. Vital Signs/Physical Exam: Temp Pulse Resp BP Pulse Ox 97 F 65 18 155/70 H 92 12/30/20 09:12/30/20 09:12/30/20 09:12/30/20 09:12/30/20 09:26 General: Alert, In no apparent distress, Oriented x3, Cooperative HEENT: Atraumatic Neck: Supple Respiratory: Clear to auscultation bilaterally, Normal air movement Cardiovascular: Normal pulses, Regular rate/rhythm Gastrointestinal: Normal bowel sounds, No ascites, No tenderness, No masses, No rebound, No guarding Musculoskeletal: No erythema, No tenderness, No warmth Integumentary: No tenderness/swelling Neurological: Normal speech, Normal strength at 5/5 x4 extr, Normal tone Laboratory Data at Discharge: WBC 2.60 K/uL (4.3-10.9) L D 12/30/20 04:34 Hgb 9.8 g/dL (12.0-15.0) L 12/30/20 04:34 Hct 29.5 % (36.0-45.0) L 12/30/20 04:34 Plt Count 107 K/uL (152-406) L 12/30/20 04:34 PT 11.2 SECONDS (9.5-12.5) 12/29/20 08:55 INR 0.97 12/29/20 08:55 Sodium 140 mmol/L (136-145) 12/30/20 04:34 Potassium 4.3 mmol/L (3.5-5.1) 12/30/20 04:34 BUN 39 mg/dL (7-18) H 12/30/20 04:34 Creatinine 5.62 mg/dL (0.55-1.3) H* 12/30/20 04:34 Glucose 132 mg/dL (74-106) H 12/30/20 04:34 Magnesium 2.6 mg/dL (1.8-2.4) H 12/29/20 08:55 Total Bilirubin 0.4 mg/dL (0.2-1.0) 12/29/20 08:55 AST 42 U/L (15-37) H 12/29/20 08:55 ALT 62 U/L (12-78) 12/29/20 08:55 Alkaline Phosphatase 183 U/L (45-117) H 12/29/20 08:55 Troponin I 0.32 ng/mL (0.0-0.045) H 12/30/20 00:30 Lipase 709 U/L (73-393) H 12/29/20 08:55 Home Medications: Aspirin 81 mg PO DAILY 07/15/20 Atorvastatin Calcium [Lipitor] 80 mg PO BEDTIME 07/15/20 Calcium Carbonate [Tums Regular*] 500 mg PO TID PRN 07/15/20 Emla 1 appl TOP SEECOM 07/15/20 Hydralazine HCl [Apresoline] 50 mg PO BID 07/15/20 Isosorbide Mononitrate [Isosorbide Mononitrate ER] 30 mg PO DAILY 07/15/20 Lactulose 30 gm PO DAILYPRN PRN 07/15/20 Metoclopramide [Reglan*] 5 mg PO TIDWM 07/15/20 NIFEdipine [Nifedipine ER] 60 mg PO DAILY 07/15/20 Pantoprazole [Protonix Tab*] 40 mg PO DAILY 07/15/20 Sennosides/Docusate Sodium [Senexon-S 50-8.6 mg Tablet] 1 each PO BID 07/15/20 Sucroferric Oxyhydroxide [Velphoro] 500 mg PO TIDWM 07/15/20 Vit B Comp C/Folic Acid/Vit D3 [Dialyvite 800 Plus D Wafer] 1 each PO DAILY 07/15/20 Vitamin E 400 unit PO DAILY 07/15/20 Clopidogrel Bisulfate [Plavix*] 75 mg PO DAILY #30 tablet 12/30/20 Metoprolol Tartrate [Lopressor*] 12.5 mg PO BID #30 tab 12/30/20 New Medications: Metoprolol Tartrate [Lopressor*] 12.5 mg PO BID #30 tab Clopidogrel Bisulfate [Plavix*] 75 mg PO DAILY #30 tablet Physician Discharge Instructions: Patient presented with chest pain. Patient with history of CAD, CABG, pacemaker. Patient was admitted for further evaluation and treatment. Patient was seen by cardiology. Cardiology recommended heart catheterization to further evaluate. Heart catheterization showed left main large and normal. LAD showed diffuse proximal disease with 80% stenosis. Left circumflex showed moderate sized with proximal 30 to 40% stenosis. RCA was large dominant with diffuse proximal to mid 80% stenosis. Her previous graft showed patent BAUER to LAD, patent SVG to OM, and patent SVG to right PDA however slow flow and ectasia noted. Conclusion showed severe [place] coronary artery disease. Recommendation was to continue with current treatment plan and medication. If the patient were to become symptomatic in the future plan for PCI of the [place] RCA with arthrectomy which can be done in [place] as an outpatient. At discharge patient will continue with her current medication including aspirin 81 mg daily, Plavix 25 mg daily, Lipitor 80 mg daily, isosorbide mononitrate ER 30 mg daily, metoprolol 12.5 mg 1 pill twice daily, nifedipine ER 60 mg daily, and hydralazine 50 mg 1 pill twice daily. Recommend follow-up with cardiology in 1 week to follow-up his hospitalization and continue her care. Patient with end-stage renal disease on hemodialysis. Patient will continue with dialysis as directed. Patient with hypertension, hyperlipidemia. Continue with above plan of care. Patient with GERD. At discharge patient will continue with Protonix 40 mg daily. Diet: Renal Activity: Ad cory Followup: NONE,NONE [Primary Care Provider] - Time spent managing pt's care (in minutes): 55
[2020-12-30 11:58] LABS: Amylase 81 U/L (25-115); Lipase 120 U/L (73-393)
--- NOTE | 2020-12-30 14:58 | PN ---
Date of Progress Note: 12/30/2020 Subjective: The patient was admitted with chest pain. The patient is status post cardiac cath by Dr Esvin Santamaria for non-ST elevation [place], recommendation for PCI for the RCA. The patient is chest pain-free . Complaining from left flank pain. Physical Examination: Vital Signs: Blood pressure 155/70, pulse of 65. Chest: Clear to auscultation. Heart: S1, S2. Regular. Abdomen: Soft, nontender. Extremity: No edema. Neuro: Alert. No focality. Laboratory Data: Sodium 140, potassium 4.3, bicarb 28, BUN 39, creatinine 5.6, calcium of 8. Tropon in 0.3. Amylase 81, lipase 120. Assessment And Plan: 1.End-stage renal disease, over volume, status post cardiac cath. We will resume dialysis as outpat ient. 2.Over volume, status post challenge, currently normal volume. We will follow up as outpatient. 3.Chest pain, non-ST elevation myocardial infarction as by Cardiology. 4.Alkalosis, status post dialysis, resolved. The patient cleared from the Renal standpoint for disc harge planning. LISETH/EVAN Voice ID: [id number] Report ID: [id number]
--- NOTE | 2020-12-30 16:44 | EKG ---
Test Date: 2020-12-29 Test Time: 08:15:34 [place] Operator: MEASUREMENT RESULTS: Intervals: Rate: 64 IL: 164 QRSD: 86 QT: 492 QTc: 507 [place]: P: 23 IL: 164 QRS: 59 T: 252 INTERPRETIVE STATEMENTS: Normal sinus rhythm ST & T wave abnormality, consider inferior ischemia Abnormal ECG Compared to ECG 07/14/2020 11:40:03 Prolonged QT interval no longer present ST (T wave) deviation still present Possible ischemia still present Electronically Signed On 12-30-20 16:39:22 CDT by Papi Mi
--- NOTE | 2020-12-31 04:04 | PN ---
Date of Progress Note: 12/30/2020 Ms. Valdez was admitted to Dr. Dumont on 12/29/2020, has underwent a heart catheterization by Dr. Tash leahy on 12/29/2020 for rmi-JE-yjqicixfl myocardial infarction. She was found to have a patent BAUER to the LAD, patent vein graft to the OM, patent vein graft to the PDA with slow flow and ectasia. The r ecommendation was for medical therapy and possible intervention within the RCA graft if her symptoms continued. No need for anticoagulation during the hospital stay. Dr. Santamaria has recommended maybe s he may require an atherectomy with an angioplasty of her [place] RCA if her symptoms persist overnight . No complaint, no issues. As far as arrhythmia. She will be going home. Case was discussed with Dr. Dumont as well. We will see her in the office in the near future. Continue her present regimen. DENG/EVAN Voice ID: [id number] Report ID: [id number]
--- NOTE | 2020-12-31 10:31 | ECHO ---
HEIGHT: 5 ft 3 in WEIGHT: 159 lb 0 oz DATE OF STUDY: 12/30/[address]: Viraj Nair 2-DIMENSIONAL: YES M.MODE: YES DOPPLER: YES COLOR FLOW: YES TDS: PORTABLE: DEFINITY: BUBBLE STUDY: DIAGNOSIS: CHEST PAIN CARDIAC HISTORY: CATHERIZATION: YES SURGERY: YES PROSTHETIC VALVE: NO PACEMAKER: NO MEASUREMENTS (cm) DIASTOLIC (NORMALS) SYSTOLIC (NORMALS) IVSd 1.1 (0.6-1.2) LA Diam 4.5 (1.9-4.0) LVEF 56% LVIDd 4.2 (3.5-5.7) LVIDs 3.0 (2.0-3.5) %FS 29% LVPWd 1.2 (0.6-1.2) Ao Diam 2.8 (2.0-3.7) 2 DIMENSIONAL ASSESSMENT: RIGHT ATRIUM: NORMAL LEFT ATRIUM: DILATED RIGHT VENTRICLE: NORMAL LEFT VENTRICLE: NORMAL TRICUSPID VALVE: NORMAL MITRAL VALVE: NORMAL PULMONIC VALVE: NORMAL AORTIC VALVE: NORMAL PERICARDIAL EFFUSION: NONE AORTIC ROOT: NORMAL LEFT VENTRICULAR WALL MOTION: NORMAL DOPPLER/COLOR FLOW: MILD TRICUSPID REGURGITATION. COMMENTS: MODERATE TRICUSPID REGURGITATION. MODERATE PULMONARY HYPERTENSION 56 mmHg. LEFT ATRIAL ENLARGEMENT. NORMAL LEFT VENTRICULAR SIZE AND FUNCTION. NO EFFUSION. TECHNOLOGIST: FERDINAND GROVES
== END 2020-12-30 12:49 | disposition home or self-care (01) | DRG 280 ==
LOC: ER 08:14 → ERHOLD 10:52 → 4TH 14:15
PROVIDERS: ADMIT Family Medicine; ATTEND Family Medicine
PROC: 5A1D70Z Performance of Urinary Filtration, Intermittent, Less than 6 Hours Per Day (ICD-10-PCS; principal; 2020-12-29)
PROC: B201YZZ Plain Radiography of Multiple Coronary Arteries using Other Contrast (ICD-10-PCS; 2020-12-29)
PROC: B203YZZ Plain Radiography of Multiple Coronary Artery Bypass Grafts using Other Contrast (ICD-10-PCS; 2020-12-29)
DX: I21.4 Non-ST elevation (NSTEMI) myocardial infarction (principal); N18.6 End stage renal disease; I12.0 Hypertensive chronic kidney disease with stage 5 chronic kidney disease or end stage renal disease; I25.10 Atherosclerotic heart disease of native coronary artery without angina pectoris; E78.5 Hyperlipidemia, unspecified; K21.9 Gastro-esophageal reflux disease without esophagitis; Z99.2 Dependence on renal dialysis; Z95.1 Presence of aortocoronary bypass graft; Z95.0 Presence of cardiac pacemaker; Z86.16 Personal history of COVID-19; N25.0 Renal osteodystrophy; D63.1 Anemia in chronic kidney disease; Z20.822 Contact with and (suspected) exposure to COVID-19
CPT/HCPCS: 36415; 71045; 71250; 74176; 80048; 80076; 82150; 82947; 83690; 83735; 83880; 84439; 84443; 84484; 85025; 85347; 85610; 90935; 93005; 93306; 93455; 96374; 96375; 99285; C1893; J0360; J1644; J2250; J2270; J2405; J3010; J7040; U0003

== ENCOUNTER 2021-03-09 13:20 | Observation (INO) | payer OTHER ==
--- OUTSIDE RECORDS SUMMARY | 2021-03-09 13:23 | XMS REPORT | Continuity of Care Document ---
:1955 Author Organization [facility] t Address [address] [place] [address] Dr. Abel. [address] [place] [address] Care Team Providers Name Role Phone MCKINLEY HUBBARD Attending Clinician Unavailable Kim WHITE Attending Clinician KIM Attending Clinician Unavailable Payers Payer Name Policy Type Policy Number Effective Date Expiration Date S justice [facility]/AARP [id number] 2020 MEDICARE ADVANTAGE 00:00:00 MEDICAID [facility] [id number] 2018 00:00:00 MEDICARE PART A [id number] 2014 \T\ B 00:00:00 [place] [id number] 2020 HEALTHCARE/AARP 00:00:00 Problems This patient has no known problems. Allergies, Adverse Reactions, Alerts Allergy Allergy Status Severity Reaction(s) Onset Inactive Treating Comm ents Source Name Type Date Date Clinician NO KNOWN Drug Active [facility] Medications This patient has no known medications. Procedures This patient has no known procedures. Encounters Start End Encounter Admission Attending Care Care Encounter Source Date/Time Date/Time Type Type Clinicians Facility Department ID 2018-09-18 Outpatient [facility] [id number] [facility] 08:26:04 2020-07-31 2020-07-31 Outpatient THOMAS WOOD [facility] [id number] Univers 10:00:00 10:00:00 [id number] [facility] 2020-07-31 2020-07-31 Outpatient THOMAS WOOD [facility] [id number] Univers 10:00:00 10:00:00 [facility] 2020-07-22 2020-07-22 Outpatient THOMAS WOOD [facility] [id number] Univers 09:30:00 09:30:00 [id number] [facility] 2020-07-22 2020-07-22 Outpatient THOMAS WOOD [facility] [id number] [facility] 09:30:00 [facility]30:00 [facility] 2020-04-24 2020-04-24 Outpatient Nola HUBBARD [facility] [id number] Univers 10:45:00 10:45:00 [id number] [facility] 2020-04-24 2020-04-24 Outpatient Nola HUBBARD [facility] [id number] Univers 10:45:00 10:45:00 [facility] 2020-04-16 2020-04-16 [facility] [id number] 12:56:21 13:26:21 Visit Pascale Roberts [id number] [facility] [id number] [facility] [id number] [address] 2020-04-16 2020-04-16 Outpatient R HERMELINDASAJI [facility] [id number] Univers 13:15:00 13:15:00 PASCALE [id number] [facility] 2020-04-16 2020-04-16 [facility] [id number] Univers 13:15:00 13:15:00 PASCALE [facility] 2018-01-22 2018-01-22 Emergency E [facility] [id number] MH 16:17:00 16:17:00 [facility] l Results This patient has no known results.
[2021-03-09] MEDS ORDERED: ASPIRIN EC 81 MG TAB PO ONE (13:31)
--- NOTE | 2021-03-09 13:50 | EDPHYS ---
Physician Documentation [facility] Name: Qiana Valdez Age: 65 yrs Sex: Female : 1955 Arrival Date: 03/09/2021 Time: 13:22 Bed 17 Private MD: ED Physician Duane Singh HPI: 03/09 13:43 This 65 yrs old Female presents to ER via EMS with complaints of Syncope. ford 13:43 The patient has experienced syncope, collapsed. Onset: The symptoms/episode ford began/occurred just prior to arrival. Historical: - PMHx: 13:26 Chronic ischemic heart disease; Diabetes - IDDM; DIALYSIS MWF; ESRD; GERD; High jh5 Cholesterol; hyperparathyroidism; Hypertension; IRON DEFICIENCY ANEMIA; Myocardial infarction; Pacemaker; - Immunization history:: Adult Immunizations up to date. - Social history:: Smoking status: unknown. ROS: 13:44 Constitutional: Negative for fever, chills, and weight loss, Eyes: Negative for injury, ford pain, redness, and discharge, ENT: Negative for injury, pain, and discharge, Neck: Negative for injury, pain, and swelling, Abdomen/GI: Negative for abdominal pain, nausea, vomiting, diarrhea, and constipation, Back: Negative for injury and pain, : Negative for injury, bleeding, discharge, and swelling, MS/Extremity: Negative for injury and deformity, Skin: Negative for injury, rash, and discoloration, Neuro: Negative for headache, weakness, numbness, tingling, and seizure, Psych: Negative for depression, anxiety, suicide ideation, homicidal ideation, and hallucinations, Allergy/Immunology: Negative for hives, rash, and allergies, Endocrine: Negative for neck swelling, polydipsia, polyuria, polyphagia, and marked weight changes, Hematologic/Lymphatic: Negative for swollen nodes, abnormal bleeding, and unusual bruising. 13:44 Cardiovascular: Positive for chest pain. 13:44 Respiratory: Positive for shortness of breath. Exam: 13:44 Constitutional: This is a well developed, well nourished patient who is awake, alert, ford and in no acute distress. Head/Face: Normocephalic, atraumatic. Eyes: Pupils equal round and reactive to light, extra-ocular motions intact. Lids and lashes normal. Conjunctiva and sclera are non-icteric and not injected. Cornea within normal limits. Periorbital areas with no swelling, redness, or edema. ENT: Nares patent. No nasal discharge, no septal abnormalities noted. Tympanic membranes are normal and external auditory canals are clear. Oropharynx with no redness, swelling, or masses, exudates, or evidence of obstruction, uvula midline. Mucous membranes moist. Neck: Trachea midline, no thyromegaly or masses palpated, and no cervical lymphadenopathy. Supple, full range of motion without nuchal rigidity, or vertebral point tenderness. No Meningismus. Chest/axilla: Normal chest wall appearance and motion. Nontender with no deformity. No lesions are appreciated. Cardiovascular: Regular rate and rhythm with a normal S1 and S2. No gallops, murmurs, or rubs. Normal PMI, no JVD. No pulse deficits. Respiratory: Lungs have equal breath sounds bilaterally, clear to auscultation and percussion. No rales, rhonchi or wheezes noted. No increased work of breathing, no retractions or nasal flaring. Abdomen/GI: Soft, non-tender, with normal bowel sounds. No distension or tympany. No guarding or rebound. No evidence of tenderness throughout. Back: No spinal tenderness. No costovertebral tenderness. Full range of motion. Female : Normal external genitalia. Skin: Warm, dry with normal turgor. Normal color with no rashes, no lesions, and no evidence of cellulitis. MS/ Extremity: Pulses equal, no cyanosis. Neurovascular intact. Full, normal range of motion. Neuro: Awake and alert, GCS 15, oriented to person, place, time, and situation. Cranial nerves II-XII grossly intact. Motor strength 5/5 in all extremities. Sensory grossly intact. Cerebellar exam normal. Normal gait. Psych: Awake, alert, with orientation to person, place and time. Behavior, mood, and affect are within normal limits. 14:25 ECG was reviewed by the Attending Physician. [facility] Vital Signs: 13:22 BP 183 / 79; Pulse 72; Resp 16; Temp 98.2; Pulse Ox 96% ; jh5 15:13 BP 133 / 65; Pulse 65; Resp 16; Pulse Ox 94% ; Weight 73 kg; jh5 15:47 BP 137 / 58; Pulse 61; Resp 16; Pulse Ox 96% ; jh5 16:53 BP 134 / 65; Pulse 60; Resp 16; Pulse Ox 94% ; [facility] MDM: 13:26 Patient medically screened. ford 14:19 Differential diagnosis: abnormal EKG, acute myocardial infarction, coronary artery ford disease chest wall pain, pleurisy, stable angina, unstable angina. HEART Score: History: Moderately Suspicious (1), ECG: Non specific repolarization disturbance / LBTB / PM (1), Age: > 45 and < 65 years (1), Risk Factors: > or = 3 Risk factors for atherosclerotic disease (2), [Hypercholesterolemia] [Hypertension] [DM] [+ Family HX] Troponin: < or = 1 x Normal Limit (0), Total Score = 5. Differential Diagnosis: cardiac arrhythmia. The patient was given aspirin in the Emergency Department. The patient's deep vein thrombosis risk score was calculated as follows: Total Score: 0. This patient was found to be at low risk for a deep vein thrombosis by using the Well's assessment criteria. The patient's pulmonary embolism risk score was calculated as follows: Total Score: 0-2 points. This patient was found to be at low risk for a pulmonary embolism by using the Well's assessment criteria. CAPRI Risk Score: 1 - Three or more CAD risk factors, 1- Known CAD, 1 - ASA use in past 7 days, 1 - Recent [<24hrs] Severe Angina, TOTAL SCORE = 4. Data reviewed: vital signs, nurses notes, lab test result(s), EKG, radiologic studies, plain films. Data interpreted: front desk monitor: rate is 72 beats/min, rhythm is regular, Pulse oximetry: on 96L(s) per nasal canula, is 96 %. Test interpretation: by ED physician or midlevel provider: ECG, plain radiologic studies. Counseling: I had a detailed discussion with the patient and/or guardian regarding: the historical points, exam findings, and any diagnostic results supporting the discharge/admit diagnosis, lab results, radiology results, the need for further work-up and treatment in the hospital. 03/09 13:28 Order name: Basic Metabolic Panel; Complete Time: 14:46 [facility] 03/09 13:28 Order name: CBC with Diff; Complete Time: 14:15 [facility] 03/09 13:28 Order name: LFT's; Complete Time: 14:46 [facility] 03/09 13:28 Order name: Magnesium; Complete Time: 14:46 [facility] 03/09 13:28 Order name: NT PRO-BNP; Complete Time: 14:46 [facility] 03/09 13:28 Order name: PT-INR [facility] 03/09 13:28 Order name: Troponin (emerg Dept Use Only); Complete Time: 14:46 [facility] 03/09 13:28 Order name: SARS-COV-2 RT PCR (Document "Date of Onset" if Symptomatic) [facility] 03/09 13:29 Order name: Lipase; Complete Time: 14:46 [facility] 03/09 16:15 Order name: PT-INR bd 03/09 16:15 Order name: Ptt, Activated bd 03/09 16:55 Order name: Protime (+INR) EDMS 03/09 13:28 Order name: XRAY Chest (1 view); Complete Time: 14:15 [facility] 03/09 13:28 Order name: EKG; Complete Time: 13:29 [facility] 03/09 13:28 Order name: Cardiac monitoring; Complete Time: 13:30 [facility] 03/09 13:28 Order name: EKG - Nurse/Tech; Complete Time: 13:42 [facility] 03/09 13:28 Order name: IV Saline Lock; Complete Time: 13:30 [facility] 03/09 13:28 Order name: Labs collected and sent; Complete Time: 13:30 [facility] 03/09 13:28 Order name: O2 Per Protocol; Complete Time: 13:30 [facility] 03/09 13:42 Order name: CT Head Brain wo Cont; Complete Time: 14:15 [facility] 03/09 17:26 Order name: PTT, Activated Partial Thromb EDMS 03/09 13:28 Order name: O2 Sat Monitoring; Complete Time: 13:30 [facility] 03/09 13:51 Order name: Labs - recollect needed: recollect green, blue and lavender; Complete Time: bd 14:01 EC:25 Rate is 65 beats/min. Rhythm is regular. QRS [place] is Normal. NH interval is normal. QRS ford interval is normal. QT interval is normal. No Q waves. T waves are Normal. ST Segment is depressed in leads I, II, III, aVL, aVF, V3, V4, V5, V6. Clinical impression: Abnormal EKG without significant change. Interpreted by me. Reviewed by me. Administered Medications: 13:42 Drug: Aspirin 81 mg Route: PO; [facility] 14:25 Drug: morphine 2 mg {Note: Pt states she has had morphine before more than once and it jh5 causes short term itching but resolves itself without issue; pt denies any problems swollowing saliva, o2 sat 94% RA.} Route: IVP; Site: left hand; 15:15 Follow up: Response: No adverse reaction jh5 15:15 Follow up: Response: Marked relief of symptoms 5 14:26 Drug: Zofran (Ondansetron) 4 mg Route: IVP; Site: left hand; 5 15:15 Follow up: Response: No adverse reaction; Marked relief of symptoms 5 15:21 Not Given (Hemodynamic Parameters): Nitro-Bid (nitroglycerin) Ointment 2 % 1 inches jh5 Transdermal once 15:45 Drug: Lopressor (metoprolol TARTRATE) 50 mg Route: PO; 5 15:55 Drug: Heparin (SC-Bolus No thrombolytic) - HEParin 60 units/kg {Co-Signature: tw2 (Windy Mccoy RN).} Route: IVP; Site: left hand; 15:58 Drug: Heparin (SC Drip) 12 units/kg/hr - (HEParin 07386 units, D5W 500 ml) 5 {Co-Signature: tw2 (Windy Mccoy RN).} Route: IV; Rate: calculated rate; Site: left hand; Disposition Summary: 03/09/21 13:49 Hospitalization Ordered Hospitalization Status: Observation ford Provider: Immanuel Dumont cha Location: Telemetry/MedSurg (observation) ford Condition: Stable ford Problem: new ford Symptoms: have improved ford Bed/Room Type: Standard ford Room Assignment: 231(03/09/21 15:56) dw Diagnosis - Chest pain, unspecified ford - Essential (primary) hypertension ford - Type 1 diabetes mellitus with hyperglycemia ford - Syncope Near ford - Unspecified combined systolic (congestive) and diastolic (congestive) heart failure ford Forms: - Medication Reconciliation Form ford - SBAR form ford Signatures: Dispatcher [employer] EDSarah Sky Diana RN RN Duane Vee MD MD cha Rees, Jessica, RN RN jh5 Windy Mccoy RN tw2 Corrections: (The following items were deleted from the chart) 15:56 13:49 ford dw
--- NOTE | 2021-03-09 13:50 | ER ---
Nurse's Notes [facility] Name: Qiana Valdez Age: 65 yrs Sex: Female : 1955 Arrival Date: 03/09/2021 Time: 13:22 Bed 17 Private MD: Diagnosis: Chest pain, unspecified;Essential (primary) hypertension;Type 1 diabetes mellitus with hyperglycemia;Syncope Near;Unspecified combined systolic (congestive) and diastolic (congestive) heart failure Presentation: 03/09 13:22 Chief complaint: Patient states: Syncopal episode this morning; denies hitting head. 5 EMS administered 20g Left Hand; 125 solu-medrol and 4mg zofran ; dialysis didn't want to treat her because of dizziness. Pt endorses possible fevers, productive cough x couple days. Coronavirus screen: Vaccine status: Patient reports being unvaccinated. Client denies travel out of the [place] in the last 14 days. Ebola Screen: Patient negative for fever greater than or equal to 101.5 degrees Fahrenheit, and additional compatible Ebola Virus Disease symptoms Patient denies exposure to infectious person. Patient denies travel to an Ebola-affected area in the 21 days before illness onset. Initial Sepsis Screen: Does the patient meet any 2 criteria? No. Patient's initial sepsis screen is negative. Does the patient have a suspected source of infection? No. Patient's initial sepsis screen is negative. Risk Assessment: Do you want to hurt yourself or someone else? Patient reports no desire to harm self or others. Onset of symptoms was March 07, 2021. 13:22 Method Of Arrival: EMS: [place] [address] 13:22 Acuity: SIXTO 2 [facility] Triage Assessment: 13:27 General: Appears in no apparent distress. Behavior is calm, cooperative, appropriate [facility] for age. Pain: Denies pain. Neuro: Level of Consciousness is awake, alert, obeys commands, Oriented to person, place, time, situation, Appropriate for age Reports dizziness. Historical: - PMHx: 13:26 Chronic ischemic heart disease; Diabetes - IDDM; DIALYSIS MWF; ESRD; GERD; High [facility] Cholesterol; hyperparathyroidism; Hypertension; IRON DEFICIENCY ANEMIA; Myocardial infarction; Pacemaker; - Immunization history:: Adult Immunizations up to date. - Social history:: Smoking status: unknown. Screenin:29 Abuse screen: Denies threats or abuse. Denies injuries from another. Nutritional [facility] screening: No deficits noted. Tuberculosis screening: No symptoms or risk factors identified. Fall Risk None identified. Assessment: 16:51 Reassessment: Attempt 1 to call report; unsuccessful and told I'd get a call back. [facility] 16:52 Reassessment: attempt report x2 and phone isn't getting picked up. Unsuccessful; have jh not received return call for report. Vital Signs: 13:22 BP 183 / 79; Pulse 72; Resp 16; Temp 98.2; Pulse Ox 96% ; jh5 15:13 BP 133 / 65; Pulse 65; Resp 16; Pulse Ox 94% ; Weight 73 kg; jh5 15:47 BP 137 / 58; Pulse 61; Resp 16; Pulse Ox 96% ; jh5 16:53 BP 134 / 65; Pulse 60; Resp 16; Pulse Ox 94% ; 5 ED Course: 13:22 Patient arrived in ED. [facility] 13:26 Duane Singh MD is Attending Physician. [facility] 13:26 Triage completed. 5 13:29 Patient has correct armband on for positive identification. Call light in reach. Side [facility] rails up X 1. 13:30 Cynthia Duarte, SUNITA is Primary Nurse. [facility] 13:45 Immanuel Dumont DO is Hospitalizing Provider. ford 13:48 XRAY Chest (1 view) In Process Unspecified. EDMS 13:51 CT Head Brain wo Cont In Process Unspecified. EDMS 16:53 No provider procedures requiring assistance completed. [facility] Administered Medications: 13:42 Drug: Aspirin 81 mg Route: PO; [facility] 14:25 Drug: morphine 2 mg {Note: Pt states she has had morphine before more than once and it jh5 causes short term itching but resolves itself without issue; pt denies any problems swollowing saliva, o2 sat 94% RA.} Route: IVP; Site: left hand; 15:15 Follow up: Response: No adverse reaction 5 15:15 Follow up: Response: Marked relief of symptoms [facility] 14:26 Drug: Zofran (Ondansetron) 4 mg Route: IVP; Site: left hand; [facility] 15:15 Follow up: Response: No adverse reaction; Marked relief of symptoms [facility] 15:21 Not Given (Hemodynamic Parameters): Nitro-Bid (nitroglycerin) Ointment 2 % 1 inches [facility] Transdermal once 15:45 Drug: Lopressor (metoprolol TARTRATE) 50 mg Route: PO; [facility] 15:55 Drug: Heparin (AR-Bolus No thrombolytic) - HEParin 60 units/kg {Co-Signature: tw2 (Windy Mccoy RN).} Route: IVP; Site: left hand; 15:58 Drug: Heparin (AR Drip) 12 units/kg/hr - (HEParin 64889 units, D5W 500 ml) [facility] {Co-Signature: tw2 (Windy Mccoy RN).} Route: IV; Rate: calculated rate; Site: left hand; Outcome: 13:49 Decision to Hospitalize by Provider. ford 17:35 Patient left the ED. bd Signatures: Dispatcher [employer] EDMS Sarah Deleon Corey, MD MD cha Rees, Jessica RN RN [facility] Windy Mccoy RN tw2
--- NOTE | 2021-03-09 13:53 | RAD REPORT ---
EXAM DESCRIPTION: RAD - Chest Single View - 03/09/2021 1:48 pm CLINICAL HISTORY: Chest pain;Dyspnea COMPARISON: Chest Single View dated 12/29/2020; Chest Single View dated 07/14/2020; Chest Single View dated 02/20/2020; Chest Single View dated 01/24/2020 FINDINGS: Lines: None. Lungs: Vascular congestion without leonie pulmonary edema. Pleural: No significant pleural effusions or pneumothorax. Cardiac: Cardiomegaly. Sternotomy. Pacemaker. Bones: No acute fractures. Other: IMPRESSION: Vascular congestion without leonie pulmonary edema.
--- NOTE | 2021-03-09 14:08 | RAD REPORT ---
EXAM DESCRIPTION: CT - Head Brain Wo Cont - 03/09/2021 1:51 pm CLINICAL HISTORY: SYNCOPE COMPARISON: Head Brain Wo Cont dated 02/22/2020; Ct Stroke Brain Wo Cont dated 02/20/2020 TECHNIQUE: All CT scans are performed using dose optimization technique as appropriate and may inclu de automated exposure control or mA/KV adjustment according to patient size. FINDINGS: No intracranial hemorrhage, hydrocephalus or extra-axial fluid collection.No areas of brai n edema or evidence of midline shift. Left maxillary sinus thickening. The calvarium is intact. IMPRESSION: No acute intracranial abnormality.
[2021-03-09 14:09] LABS: Basophils % 0.9 % (0-1.3); Lymphocytes % 16.3 % (15.3-44.8); RBC Red Blood Cell Count 3.53 M/uL (3.86-4.86)
[2021-03-09 14:11] LABS: Protime INR 1.06
[2021-03-09] MEDS ORDERED: ONDANSETRON 4 MG/2 ML VIAL ONE (14:20)
[2021-03-09] MEDS ORDERED: MORPHINE 4 MG/ML SYR ONE (14:20)
--- NOTE | 2021-03-09 14:41 | P.HP ---
Certification for Inpatient Patient admitted to: Observation With expected LOS: <2 Midnights Patient will require the following post-hospital care: None Practitioner: I am a practitioner with admitting privileges, knowledge of patient current condition, hospital course, and medical plan of care. Services: Services provided to patient in accordance with Admission requirements found in Title 42 Section 412.3 of the Code of Federal Regulations Patient History Date of Service: 03/09/21 Primary Care Provider: Anai, nephrologyDr. Ortiz Reason for admission: Shortness of breath, chest pain History of Present Illness: 65-year-old female with history of CAD, pacemaker, CABG, hypertension, diabetes and end-stage renal disease. Patient presented emergency room with chest pain. She describes it as more of a chest pressure. This started about 1 week ago. This has not improved. Patient reports some shortness of breath associated with this. Patient with history of stents about 2 to 3 months ago. Patient was not able to complete dialysis today. Patient was sent to the ER for further evaluation In the ER patient was evaluated. CT head unremarkable. Chest x-ray shows some mild volume overload. Patient was admitted for further evaluation Allergies No Known Allergies Allergy (Verified 02/20/20 21:51) Home medications list reviewed: Yes Home Medications: Aspirin 81 mg PO DAILY 07/15/20 Atorvastatin Calcium [Lipitor] 80 mg PO BEDTIME 07/15/20 Calcium Carbonate [Tums Regular*] 500 mg PO TID PRN 07/15/20 Emla 1 appl TOP SEECOM 07/15/20 Hydralazine HCl [Apresoline] 50 mg PO BID 07/15/20 Isosorbide Mononitrate [Isosorbide Mononitrate ER] 30 mg PO DAILY 07/15/20 Lactulose 30 gm PO DAILYPRN PRN 07/15/20 Metoclopramide [Reglan*] 5 mg PO TIDWM 07/15/20 NIFEdipine [Nifedipine ER] 60 mg PO DAILY 07/15/20 Pantoprazole [Protonix Tab*] 40 mg PO DAILY 07/15/20 Sennosides/Docusate Sodium [Senexon-S 50-8.6 mg Tablet] 1 each PO BID 07/15/20 Sucroferric Oxyhydroxide [Velphoro] 500 mg PO TIDWM 07/15/20 Vit B Comp C/Folic Acid/Vit D3 [Dialyvite 800 Plus D Wafer] 1 each PO DAILY 07/15/20 Vitamin E 400 unit PO DAILY 07/15/20 Clopidogrel Bisulfate [Plavix*] 75 mg PO DAILY #30 tablet 12/30/20 Metoprolol Tartrate [Lopressor*] 12.5 mg PO BID #30 tab 12/30/20 - Past Medical/Surgical History Diabetic: Yes -: Hypertension -: Diabetes mellitus type 2 insulin-dependent -: ESRD - MWF -: Nonfuctioning LLE fistula -: Hyperlipidemia -: GERD -: CAD with prior stent, CABG -: Hyperparathyroidism -: Anemia of chronic disease with iron deficiency -: Diabetic neuropathy -: COVID-19 01/21/2020 -: Triple bypass 2016 -: Pacemaker -: Tubal ligation -: Fistula aneursym reconstruction 4 times -: Bilateral cataract surgery Psychosocial/ Personal History: Lives at home - Family History Mother -: Heart disease - Social History Smoking Status: Never smoker Alcohol use: No CD- Drugs: No Caffeine use: No Place of Residence: Home Review of Systems General: As per HPI Eyes: Unremarkable ENT: Unremarkable Respiratory: Shortness of Breath, As per HPI Cardiovascular: Chest Pain, As per HPI Gastrointestinal: Unremarkable Genitourinary: Unremarkable Musculoskeletal: As per HPI Integumentary: Unremarkable Neurological: Unremarkable Lymphatics: Unremarkable Physical Examination - Studies Laboratory Data (last 24 hrs) 03/09/21 13:59: PT 12.2, INR 1.06 03/09/21 13:59: WBC 6.00, Hgb 11.5 L, Hct 34.0 L, Plt Count 128 L Assessment and Plan - Plan COVID: Pending CT head: COMPARISON: Head Brain Wo Cont dated 02/22/2020; Ct Stroke Brain Wo Cont dated 02/20/2020 TECHNIQUE: All CT scans are performed using dose optimization technique as appropriate and may include automated exposure control or mA/KV adjustment according to patient size. FINDINGS: No intracranial hemorrhage, hydrocephalus or extra-axial fluid collection.No areas of brain edema or evidence of midline shift. Left maxillary sinus thickening. The calvarium is intact. IMPRESSION: No acute intracranial abnormality. Chest x-ray: COMPARISON: Chest Single View dated 12/29/2020; Chest Single View dated 07/14/2020; Chest Single View dated 02/20/2020; Chest Single View dated 01/24/2020 FINDINGS: Lines: None. Lungs: Vascular congestion without leonie pulmonary edema. Pleural: No significant pleural effusions or pneumothorax. Cardiac: Cardiomegaly. Sternotomy. Pacemaker. Bones: No acute fractures. IMPRESSION: Vascular congestion without leonie pulmonary edema. Physical Exam: GENERAL: The patient is a well-developed, well-nourished, in no apparent distress. Alert and oriented x3. VITAL SIGNS: Reviewed HEENT: Head is normocephalic and atraumatic. Extraocular muscles are intact. Pupils are equal, round, and reactive to light and accommodation. Nares appeared normal. Mouth is well hydrated and without lesions. Mucous membranes are moist. NECK: Supple. No carotid bruits. No lymphadenopathy or thyromegaly. LUNGS: Some crackles to the bases. Decreased to the bases HEART: Regular rate and rhythm, no appreciable gallops, rubs, murmurs or extra heart sounds ABDOMEN: Soft, nontender, and nondistended. Positive bowel sounds. No hepatosplenomegaly was noted. EXTREMITIES: Without any cyanosis, clubbing, rash, lesions or peripheral edema. NEUROLOGIC: The patient is oriented to person, place and time. Strength and sensation are grossly intact. Face is symmetric. SKIN: Normal color, turgor and temperature. No ulcerations or rashes noted. Impression: Shortness of breath, chest pain with history of CAD, stents, pacemaker, and CABG suspect acute on chronic diastolic CHF End-stage renal disease on hemodialysis Hypertension Hyperlipidemia Diabetes mellitus type 2 insulin-dependent Diabetic neuropathy GERD Plan: Shortness of breath, chest pain with history of CAD, stents, pacemaker, and CABG suspect acute on chronic diastolic CHF: Patient admitted for further evaluation and treatment. Nephrology consulted. Nephrology plans to give dialysis today. Suspect volume overload. Continue 1500 cc/day fluid restriction. Will monitor cardiac enzymes and telemetry. Cardiology consulted for further recommendation. Will monitor closely. If work-up unremarkable anticipate possible discharge as early as tomorrow. Will discuss further with cardiology. End-stage renal disease on hemodialysis: Nephrology to start dialysis today. May need multiple dialysis for improvement. Hypertension: Restart home medication carvedilol 25 mg 1 pill twice daily, nifedipine 60 mg daily, and hydralazine 50 mg 1 pill twice daily Hyperlipidemia: Restart Lipitor. Will check fasting lipid panel. Diabetes mellitus type 2 insulin-dependent: We will provide sliding scale. Accu-Cheks in place. Diabetic neuropathy: Restart gabapentin GERD: Restart Protonix Code Status: Full Code DVT prophylaxis: Heparin Advanced Care Planning-30 minutes: Plan of care for the patient's discharge was discussed in detail with the patient and family. Discharge Plan: Home Plan to discharge in: 24 Hours - Advance Directives Does patient have a Living Will: No Does patient have a Durable POA for Healthcare: No - Code Status/Comfort Care Code Status Assessed: Yes (Patient is full code) Time Spent Managing Pts Care (In Minutes): 55
[2021-03-09 14:43] LABS: ALT/SGPT 33 U/L (12-78); AST/SGOT 30 U/L (15-37); Alkaline Phosphatase 198 U/L (45-117); BUN Blood Urea Nitrogen 62 mg/dL (7-18); Bicarbonate 24 mmol/L (21-32); Bilirubin Direct 0.4 mg/dL (0-0.2); Bilirubin Total 0.8 mg/dL (0.2-1.0); Glucose Level 142 mg/dL (74-106); Lipase 30 U/L (73-393); Magnesium 2.5 mg/dL (1.8-2.4); NT PRO-BNP > 175000 pg/mL (<125); Potassium 4.5 mmol/L (3.5-5.1); Protein, Total 8.2 g/dL (6.4-8.2); Sodium Level 135 mmol/L (136-145); Troponin (Emerg Dept Use Only) 0.34 ng/mL (0.0-0.045)
[2021-03-09] MEDS ORDERED: HEPARIN 5000 UNIT/ML 1 ML VIAL ONE (14:58)
[2021-03-09] MEDS ORDERED: HEPARIN/D5W 25,000 UNIT/500 ML BAG IV ONE (14:58)
[2021-03-09] MEDS ORDERED: METOPROLOL TAR 50 MG TAB ONE (15:28)
[2021-03-09 16:53] LABS: Protime INR 1.13
[2021-03-09] MEDS ORDERED: METOCLOPRAMIDE 5 MG TAB PO PRN (17:05)
[2021-03-09] MEDS: INSULIN -REGULAR HUMAN 50 UNIT/0.5 ML ML SQ SCH ×2 (17:05→23:41)
[2021-03-09] MEDS ORDERED: LACTULOSE 20 GM/30 ML UCUP PO PRN (17:05)
[2021-03-09] MEDS ORDERED: ONDANSETRON 4 MG/2 ML VIAL IV PRN (17:05)
[2021-03-09] MEDS ORDERED: ACETAMINOPHEN 500 MG TAB PO PRN (17:05)
[2021-03-09 17:14] VITALS: O2SAT 97
[2021-03-09] MEDS: carvediloL 25 MG TAB PO SCH (18:00)
[2021-03-09 19:37] LABS: Creatine Phosphokinase 47 U/L (26-192); Troponin I 0.31 ng/mL (0.0-0.045)
--- NOTE | 2021-03-09 19:51 | CON ---
Date of Consultation: 03/09/2021 Reason For Consultation: Chest pain. History Of Present Illness: A 65-year-old female with history of coronary artery disease, triple-ves etelvina disease, status post recent heart catheterization done by myself in December. She has patent LI MA to LAD and SVG to OM, but the SVG to RCA is ectatic with very slow flow and diffusely and heavily calcified and diffuse diseased RCA. Elected to treat her medically pending evaluation for symptoms. Comes in with chest pain, substernal, pressure-like, radiates to the left upper extremity along with shortness of breath. Went to dialysis today, so was sent here for that. Continues to feel uncomfor table. Past Medical History: End-stage renal disease, coronary artery disease, dyslipidemia, hypertension, diabetes. Medications: Refer reconciliation sheet for detailed list. Allergies: NO KNOWN DRUG ALLERGIES. Family History: No premature coronary artery disease or cancer. Social History: She does not smoke or drink. Does not use any drugs. Review of Systems: All systems reviewed and they were negative except as mentioned in the HPI. Physical Examination: Vital Signs: Reviewed. Head and Neck Exam: Pupils are equal, reactive to light. Intact eye movements. No JVD. No cervica l lymphadenopathy. Neck: Supple. Thyroid is not enlarged. Lungs: With decreased breathing sounds bilaterally with crackles in the bases. No accessory muscle use or muscle retraction. Heart: Regular rate and rhythm. No extra sounds. Abdomen: Soft, nontender. Bowel sounds positive. No organomegaly. No masses or hernia. No rigidi ty or rebound. Extremities: Positive edema. No clubbing, cyanosis. Intact pulses. Skin: No rashes. Neurologic: Alert, awake, oriented x3. No focal deficits appreciated. Investigations: Labs were reviewed. NT proBNP more than 175,000. Troponin 0.34, hemoglobin is 11.5 . Assessment And Plan: Chest pain with significant known iliamna coronary artery disease. She has a pa tent graft BAUER to LAD and SVG to OM, however, the SVG to the PDA is ectatic and aneurysmal with very slow flow. Since that she continues to be presenting with a typical angina symptoms, I will plan on PCI of her iliamna right coronary artery with atherectomy. For the time being admit and observe. If her troponins remain stable and her symptoms resolved, then we will plan to do this as an outpatient in the near future. If she continues to be symptomatic, we will transfer the patient to [place] and will arrange for atherectomy followed by PCI of the RCA. Meanwhile, continue heparin, aspirin and u se nitroglycerin patches and morphine for pain control. Thank you for the consult. TORRIE Voice ID: [id number] Report ID: [id number]
[2021-03-09 20:24] LABS: CKMB Creatine Kinase MB < 1.0 ng/mL (1.0-3.6)
[2021-03-09] MEDS ORDERED: ATORVASTATIN 80 MG TAB PO SCH (21:00)
[2021-03-09] MEDS ORDERED: HEPARIN 5000 UNIT/ML 1 ML VIAL SQ SCH (21:00)
[2021-03-09] MEDS ORDERED: HEPARIN 5000 UNIT/ML 1 ML VIAL IV ONE (22:39)
[2021-03-09] MEDS: GABAPENTIN 100 MG CAP PO SCH (23:32)
[2021-03-09] MEDS: HYDRALAZINE HCL 25 MG TABLET PO SCH (23:33)
[2021-03-09] MEDS ORDERED: HEPARIN/D5W 25,000 UNIT/500 ML BAG IV SCH (23:45)
[2021-03-10 00:16] VITALS: BMI 28.6
[2021-03-10] MEDS ORDERED: MORPHINE 2 MG/ML SYR IV PRN (00:18)
--- NOTE | 2021-03-10 01:06 | CON ---
Date of Consultation: 03/09/2021 Chief Complaint: End-stage renal disease, fluid overload, chest pain, shortness of breath. History Of Present Illness: The patient is 65-year-old woman with history of coronary artery disease , pacemaker, CABG, hypertension, diabetes mellitus, end-stage renal disease secondary to diabetic kid keyla disease. The patient was brought by EMS to the emergency room from dialysis center. She arrived to dialysis center and she was complaining of chest pain, shortness of breath, and history of recent fall at home. She denies fever or chills. Denies nausea or vomiting, melena, hematemesis. She janett cribes chest pain as pressure like in substernal area. It started about 1 week ago and had intermitt ent. At presentation reports some shortness of breath and wheezing. She had previously a procedure done for coronary artery disease. 2 months ago, she had stent placement. She was not able to start dialysis because of chest pain and EMS was called to bring her to emergency room. She was evaluated in the emergency room. CT of the head was unremarkable. Chest x-ray showed volume overload and deco mpensated congestive heart failure. Review of Systems: Denies fever or chills. Eyes: Denies vision changes. Ears, Nose, Mouth, and Throat: Denies sore throat, earaches. Respiratory: Has shortness of breath and wheezing. Denies cough, hemoptysis. Cardiovascular: Denies palpitation. Has chest pain, pressure in substernal area of intermittent pat ter, not related to exertion. GI: Denies nausea, vomiting, melena, hematemesis. : Denies hematuria or dysuria. All other systems reviewed and all are negative. Past Medical History: Diabetes mellitus with renal manifestation. The patient has insulin dependent diabetes mellitus type 2, end-stage renal disease, on hemodialysis Tuesday, Tuesday, Tuesday, nonfun ctioning left lower extremity fistula, hyperlipidemia, and GERD, coronary artery disease with prior s tent and CABG, hyperparathyroidism of renal origin, anemia of chronic disease with iron deficiency, d iabetic neuropathy, COVID infection in January 2020, pacemaker, tubal ligation, fistula aneurysm matthew nstruction x4, bilateral cataract surgeries. Family History: Mother, heart disease. Social History: Denies tobacco, alcohol, illicit drugs. Physical Examination: General: The patient is in mild respiratory distress, is complaining of chest pain. Eyes: Anicteric sclerae. Ears, Nose, Mouth, and Throat: Oral mucosa moist. No pallor. Neck: Supple. No bruits. Lungs: Few rhonchi bilaterally present. Crackles at bases. GI: Abdomen is soft, benign, nontender. No rebound. No guarding. Extremities: Slight edema present. No clubbing. No cyanosis. Neurological: Moving extremities. Cranial nerves intact. Psychiatric: Patient has mild anxiety. Denies depression. Imaging: Chest x-ray showed vascular congestion with resolved pulmonary edema. CT scan of the head, no acute intracranial abnormalities. Laboratory Data: Hemoglobin 11.5, WBC 6.0, platelet count 128,000. Sodium 155, potassium 4.5, chlor ginny 95, CO2 of 24, BUN 62, creatinine 8.76, glucose 142, calcium 8.6, magnesium 2.5. BNP 175,000. A lbumin 3.06. Total protein 6.2. Troponin 0.34 and 0.31. Lipase 30. Impression And Plan: 1.Congestive heart failure, fluid overload, chest pain. Patient is undergoing cardiac workup. 2.Fluid overload. Decompensated, congestive heart failure with diastolic dysfunction. Dialysis rich l be done to obtain negative fluid balance. Monitor electrolytes. Adjust treatment with special bette lysis as needed. 3.Hypertension. Blood pressure is elevated. Continue IV blood pressure medication for hypertensive urgency. 4.Hyperlipidemia. Per primary team. 5.Renal osteodystrophy. Monitor phosphorus level. Adjust binders. 6.Coronary artery disease. The patient will be seen by credit administration officer for possible non-ST elevation m yocardial infarction, congestive heart failure with diastolic dysfunction. The patient will require to have echo done. 7.Screen for possible bacteremia if the patient has fever. EB/MODL Voice ID: [id number] Report ID: [id number]
[2021-03-10 05:20] VITALS: TEMP 97.7
[2021-03-10] MEDS: carvediloL 25 MG TAB PO SCH (05:22)
[2021-03-10 05:48] LABS: Absolute Lymphocytes (CBC) 0.6 K/uL (0.7-4.9); Basophils % 0.3 % (0-1.3); Hematocrit 36.7 % (36.0-45.0); Lymphocytes % 11.1 % (15.3-44.8); MPV 10.1 fL (7.6-11.3); RBC Red Blood Cell Count 3.64 M/uL (3.86-4.86)
[2021-03-10 05:56] LABS: Magnesium 2.4 mg/dL (1.8-2.4); Potassium 4.7 mmol/L (3.5-5.1); Thyroid Stimulating Hormone 0.648 uIU/mL (0.360-3.740)
--- NOTE | 2021-03-10 06:12 | P.PN ---
Subjective Date of Service: 03/10/21 Primary Care Provider: None, nephrologyDr. Ortiz Chief Complaint: Shortness of breath, chest pain Subjective: Other (Patient reports some improvement.) Physical Examination - Vital Signs Temperature: 97.7 F Blood Pressure: 180/83 Pulse: 72 Respirations: 16 Pulse Ox (%): 96 - Studies Laboratory Data (last 24 hrs) 03/09/21 13:59: PT 12.2, INR 1.06, APTT 33.1 03/09/21 13:59: WBC 6.00, Hgb 11.5 L, Hct 34.0 L, Plt Count 128 L 03/09/21 13:59: Sodium 135 L, Potassium 4.5, BUN 62 H, Creatinine 8.76 H*, Glucose 142 H, Magnesium 2.5 H, Total Bilirubin 0.8, AST 30, ALT 33, Alkaline P hosphatase 198 H, Lipase 30 L Assessment & Plan Discharge Plan: Home Plan to discharge in: 24 Hours Physician Review Additional Text: COVID: negative CT head: COMPARISON: Head Brain Wo Cont dated 02/22/2020; Ct Stroke Brain Wo Cont dated 02/20/2020 TECHNIQUE: All CT scans are performed using dose optimization technique as appropriate and may include automated exposure control or mA/KV adjustment according to patient size. FINDINGS: No intracranial hemorrhage, hydrocephalus or extra-axial fluid collection.No areas of brain edema or evidence of midline shift. Left maxillary sinus thickening. The calvarium is intact. IMPRESSION: No acute intracranial abnormality. Chest x-ray: COMPARISON: Chest Single View dated 12/29/2020; Chest Single View dated 07/14/2020; Chest Single View dated 02/20/2020; Chest Single View dated 01/24/2020 FINDINGS: Lines: None. Lungs: Vascular congestion without leonie pulmonary edema. Pleural: No significant pleural effusions or pneumothorax. Cardiac: Cardiomegaly. Sternotomy. Pacemaker. Bones: No acute fractures. IMPRESSION: Vascular congestion without leonie pulmonary edema. Physical Exam: GENERAL: The patient is a well-developed, well-nourished, in no apparent distress. Alert and oriented x3. VITAL SIGNS: Reviewed HEENT: Neck supple LUNGS: Clear anteriorly HEART: Regular rate and rhythm, no appreciable gallops, rubs, murmurs or extra heart sounds ABDOMEN: Soft, nontender, and nondistended. Positive bowel sounds. No hepatosplenomegaly was noted. EXTREMITIES: Without any cyanosis, clubbing, rash, lesions or peripheral edema. NEUROLOGIC: The patient is oriented to person, place and time. Strength and sensation are grossly intact. Face is symmetric. SKIN: Normal color, turgor and temperature. No ulcerations or rashes noted. Impression: Shortness of breath, chest pain with history of CAD, stents, pacemaker, and CABG suspect acute on chronic diastolic CHF secondary to angina End-stage renal disease on hemodialysis Hypertension Hyperlipidemia Diabetes mellitus type 2 insulin-dependent Diabetic neuropathy GERD Plan: Shortness of breath, chest pain with history of CAD, stents, pacemaker, and CABG suspect acute on chronic diastolic CHF secondary to angina: Patient received dialysis with improvement. Patient with prior heart catheterization. Case discussed at length with cardiology. Patient with patent graft BAUER to LAD. SVG to PDA is ectactic and aneurysmal with very slow flow. This may be contributing to her angina symptoms. Cardiology recommends to increase Imdur to 60 mg daily. Hydralazine also increased to 75 mg 1 pill twice daily for better blood pressure control. Patient will be discharged home. Patient will follow up next week for outpatient PCI of her sitka right coronary artery with arthrectomy. This will need to be done in [place]. End-stage renal disease on hemodialysis: Continue with dialysis every Tuesday, Tuesday and Tuesday. Hypertension: Continue with home medications carvedilol 25 mg 1 pill twice daily, nifedipine 60 mg daily. Will increase hydralazine to 75 mg 1 pill twice daily for better blood pressure control. Hyperlipidemia: Continue Lipitor 80 mg daily. Diabetes mellitus type 2 insulin-dependent: Continue with diabetic medication. Diabetic neuropathy: Continue gabapentin 100 mg 1 pill 3 times a day GERD: Continue Protonix. Code Status: Full Code DVT prophylaxis: Heparin Advanced Care Planning-30 minutes: Home at discharge Time Spent Managing Pts Care (In Minutes): 55
[2021-03-10] MEDS ORDERED: PANTOPRAZOLE 40MG TABLET PO SCH (06:30)
[2021-03-10 07:06] LABS: Anisocytosis 1+; Blood Morphology Comment NOTED (NOT SEEN); Platelet Estimate DECR; White Blood Cell Scan OK (OK)
[2021-03-10 07:07] LABS: Macrocytosis 1+
[2021-03-10] MEDS ORDERED: HEPARIN 5000 UNIT/ML 1 ML VIAL IV ONE (07:30)
[2021-03-10] MEDS: INSULIN -REGULAR HUMAN 50 UNIT/0.5 ML ML SQ SCH (07:30)
[2021-03-10] MEDS ORDERED: TRAMADOL HCL 50 MG TAB PO PRN (07:59)
--- NOTE | 2021-03-10 08:18 | P.DS ---
Admission Date: 03/09/21 Discharge Date: 03/10/21 Primary Care Provider: None, NephrologyDr. Ortiz; Cardiology-Dr. Santamaria Disposition: ROUTINE DISCHARGE Discharge Condition: GOOD Reason for Admission: Shortness of breath, chest pain Consultations: Nephrology-Dr. Ortiz Cardiology-Dr. Santamaria Procedures: COVID: negative CT head: COMPARISON: Head Brain Wo Cont dated 02/22/2020; Ct Stroke Brain Wo Cont dated 02/20/2020 TECHNIQUE: All CT scans are performed using dose optimization technique as appropriate and may include automated exposure control or mA/KV adjustment according to patient size. FINDINGS: No intracranial hemorrhage, hydrocephalus or extra-axial fluid collection.No areas of brain edema or evidence of midline shift. Left maxillary sinus thickening. The calvarium is intact. IMPRESSION: No acute intracranial abnormality. Chest x-ray: COMPARISON: Chest Single View dated 12/29/2020; Chest Single View dated 07/14/2020; Chest Single View dated 02/20/2020; Chest Single View dated 01/24/2020 FINDINGS: Lines: None. Lungs: Vascular congestion without leonie pulmonary edema. Pleural: No significant pleural effusions or pneumothorax. Cardiac: Cardiomegaly. Sternotomy. Pacemaker. Bones: No acute fractures. IMPRESSION: Vascular congestion without leonie pulmonary edema. Physical Exam: GENERAL: The patient is a well-developed, well-nourished, in no apparent distress. Alert and oriented x3. VITAL SIGNS: Reviewed HEENT: Neck supple LUNGS: Clear anteriorly HEART: Regular rate and rhythm, no appreciable gallops, rubs, murmurs or extra heart sounds ABDOMEN: Soft, nontender, and nondistended. Positive bowel sounds. No hepatosplenomegaly was noted. EXTREMITIES: Without any cyanosis, clubbing, rash, lesions or peripheral edema. NEUROLOGIC: The patient is oriented to person, place and time. Strength and sensation are grossly intact. Face is symmetric. SKIN: Normal color, turgor and temperature. No ulcerations or rashes noted. Medical Problem List: Shortness of breath, chest pain with history of CAD, cardiac stents, pacemaker, and CABG suspect acute on chronic diastolic CHF with angina End-stage renal disease on hemodialysis Hypertension Hyperlipidemia Diabetes mellitus type 2 insulin-dependent Diabetic neuropathy GERD Brief History of Present Illness: 65-year-old female with history of CAD, pacemaker, CABG, hypertension, diabetes and end-stage renal disease. Patient presented emergency room with chest pain. She describes it as more of a chest pressure. This started about 1 week ago. This has not improved. Patient reports some shortness of breath associated with this. Patient with history of stents about 2 to 3 months ago. Patient was not able to complete dialysis today. Patient was sent to the ER for further evaluation In the ER patient was evaluated. CT head unremarkable. Chest x-ray shows some mild volume overload. Patient was admitted for further evaluation Hospital Course: Patient presented with shortness of breath and chest pain. Patient with history of CAD, stent, pacemaker and CABG. Patient with acute on chronic diastolic CHF with angina. Patient was seen and evaluated by cardiology. Cardiology reports patient with prior heart catheterization showing patent graft BAUER to LAD. SVG to PDA is ectactic and aneurysmal with very slow flow. This may be contributing to her angina symptoms. Case discussed at length with cardiology. No intervention required at this time. Cardiology recommends to increase Imdur to 60 mg daily. Hydralazine was also increase to 75 mg 1 pill twice daily for better blood pressure control. At discharge patient will follow up with cardiology within 1 week. Cardiology will help arrange for outpatient PCI of her [place] right coronary artery with arthrectomy next week. This will need to be done in [place]. At discharge patient will continue with aspirin 81 mg daily, Plavix 25 mg daily, carvedilol 25 mg 1 pill twice daily, nifedipine XL 60 mg daily, hydralazine 75 mg 1 pill twice daily, Lipitor 80 mg daily, and Imdur 60 mg daily. Recommend follow-up with cardiology within 1 week with recommendations above. Patient with end-stage renal disease on hemodialysis. Patient receives dialysis every Tuesday, Tuesday and Tuesday. Patient will continue with dialysis as directed by nephrology. Patient with hypertension. As mentioned above medications have been adjusted. At discharge patient will continue with carvedilol 25 mg 1 pill twice daily, nifedipine 60 mg daily, and hydralazine 75 mg 1 pill twice daily. Recommend to maintain blood pressure less than 130/80. Further adjustment in medication may be required. This can be done with the help of her PCP, nephrology or cardiology. Patient with diabetes mellitus type 2 insulin-dependent. At discharge she will continue with her medication Lantus 12 units subcu daily. Recommend to maintain blood sugar less than 140 fasting and less than 200 after meals. Recommend to recheck hemoglobin A1c every 3 months to monitor her progress. Recommend follow-up with a PCP to establish care and follow-up her diabetes. Patient with diabetic neuropathy. At discharge patient will continue with gabapentin 100 mg 1 pill 3 times a day. Patient with GERD. At discharge she will continue with Protonix 40 mg daily. Vital Signs/Physical Exam: Temp Pulse Resp BP Pulse Ox 97.7 F 72 16 180/83 H 96 03/10/21 08:09 03/10/21 08:09 03/10/21 08:09 03/10/21 08:09 03/10/21 08:09 General: Alert, In no apparent distress, Oriented x3, Cooperative HEENT: Atraumatic Neck: Supple Respiratory: Clear to auscultation bilaterally, Normal air movement Cardiovascular: Normal pulses, Regular rate/rhythm Gastrointestinal: Normal bowel sounds, No tenderness, No masses, No rebound, No guarding Musculoskeletal: No erythema, No tenderness, No warmth Integumentary: No tenderness/swelling, No erythema, No warmth, No cyanosis Neurological: Normal speech, Normal strength at 5/5 x4 extr, Normal tone, Normal affect Laboratory Data at Discharge: WBC 5.70 K/uL (4.3-10.9) 03/10/21 04:58 Hgb 10.1 g/dL (12.0-15.0) L 03/10/21 04:58 Hct 36.7 % (36.0-45.0) 03/10/21 04:58 Plt Count 108 K/uL (152-406) L 03/10/21 04:58 PT 13.0 SECONDS (9.5-12.5) H 03/09/21 16:00 INR 1.13 03/09/21 16:00 APTT 30.7 SECONDS (24.3-36.9) 03/10/21 06:30 Sodium 135 mmol/L (136-145) L 03/10/21 04:58 Potassium 4.7 mmol/L (3.5-5.1) 03/10/21 04:58 BUN 44 mg/dL (7-18) H 03/10/21 04:58 Creatinine 6.33 mg/dL (0.55-1.3) H* D 03/10/21 04:58 Glucose 246 mg/dL (74-106) H 03/10/21 04:58 Magnesium 2.4 mg/dL (1.8-2.4) 03/10/21 04:58 Total Bilirubin 0.8 mg/dL (0.2-1.0) 03/09/21 13:59 AST 30 U/L (15-37) 03/09/21 13:59 ALT 33 U/L (12-78) 03/09/21 13:59 Alkaline Phosphatase 198 U/L (45-117) H 03/09/21 13:59 Troponin I 0.31 ng/mL (0.0-0.045) H 03/09/21 18:53 Triglycerides 134 mg/dL (<150) 03/10/21 04:58 Cholesterol 146 mg/dL (<200) 03/10/21 04:58 HDL Cholesterol 24 mg/dL (40-60) L 03/10/21 04:58 Cholesterol/HDL Ratio 6.08 03/10/21 04:58 Lipase 30 U/L (73-393) L 03/09/21 13:59 Home Medications: Aspirin 81 mg PO DAILY 07/15/20 Atorvastatin Calcium [Lipitor] 80 mg PO BEDTIME 07/15/20 Calcium Carbonate [Tums Regular*] 500 mg PO TID PRN 07/15/20 Emla 1 appl TOP SEECOM 07/15/20 Lactulose 30 gm PO DAILYPRN PRN 07/15/20 Metoclopramide [Reglan*] 5 mg PO TIDWM 07/15/20 NIFEdipine [Nifedipine ER] 60 mg PO DAILY 07/15/20 Pantoprazole [Protonix Tab*] 40 mg PO DAILY 07/15/20 Sennosides/Docusate Sodium [Senexon-S 50-8.6 mg Tablet] 1 each PO BID 07/15/20 Sucroferric Oxyhydroxide [Velphoro] 500 mg PO TIDWM 07/15/20 Vit B Comp C/Folic Acid/Vit D3 [Dialyvite 800 Plus D Wafer] 1 each PO DAILY 07/15/20 Vitamin E 400 unit PO DAILY 07/15/20 Clopidogrel Bisulfate [Plavix*] 75 mg PO DAILY #30 tablet 12/30/20 Hydralazine HCl [Apresoline] 75 mg PO BID #90 03/10/21 Isosorbide Mononitrate [Isosorbide Mononitrate ER] 60 mg PO DAILY #60 03/10/21 carvediloL [Coreg*] 25 mg PO BID 6AM 6PM #60 tab 03/10/21 New Medications: Hydralazine HCl [Apresoline] 75 mg PO BID #90 carvediloL [Coreg*] 25 mg PO BID 6AM 6PM #60 tab Isosorbide Mononitrate [Isosorbide Mononitrate ER] 60 mg PO DAILY #60 Physician Discharge Instructions: Patient presented with shortness of breath and chest pain. Patient with history of CAD, stent, pacemaker and CABG. Patient with acute on chronic diastolic CHF with angina. Patient was seen and evaluated by cardiology. Cardiology reports patient with prior heart catheterization showing patent graft BAUER to LAD. SVG to PDA is ectactic and aneurysmal with very slow flow. This may be contributing to her angina symptoms. Case discussed at length with cardiology. No intervention required at this time. Cardiology recommends to increase Imdur to 60 mg daily. Hydralazine was also increase to 75 mg 1 pill twice daily for better blood pressure control. At discharge patient will follow up with cardiology within 1 week. Cardiology will help arrange for outpatient PCI of her [place] right coronary artery with arthrectomy next week. This will need to be done in [place]. At discharge patient will continue with aspirin 81 mg daily, Plavix 25 mg daily, carvedilol 25 mg 1 pill twice daily, nifedipine XL 60 mg daily, hydralazine 75 mg 1 pill twice daily, Lipitor 80 mg daily, and Imdur 60 mg daily. Recommend follow-up with cardiology within 1 week with recommendations above. Patient with end-stage renal disease on hemodialysis. Patient receives dialysis every Tuesday, Tuesday and Tuesday. Patient will continue with dialysis as directed by nephrology. Patient with hypertension. As mentioned above medications have been adjusted. At discharge patient will continue with carvedilol 25 mg 1 pill twice daily, nifedipine 60 mg daily, and hydralazine 75 mg 1 pill twice daily. Recommend to maintain blood pressure less than 130/80. Further adjustment in medication may be required. This can be done with the help of her PCP, nephrology or cardiology. Patient with diabetes mellitus type 2 insulin-dependent. At discharge she will continue with her medication Lantus 12 units subcu daily. Recommend to maintain blood sugar less than 140 fasting and less than 200 after meals. Recommend to recheck hemoglobin A1c every 3 months to monitor her progress. Recommend follow-up with a PCP to establish care and follow-up her diabetes. Patient with diabetic neuropathy. At discharge patient will continue with gabapentin 100 mg 1 pill 3 times a day. Patient with GERD. At discharge she will continue with Protonix 40 mg daily. Diet: ADA Activity: Ad cory Followup: NONE,NONE [Primary Care Provider] - Time spent managing pt's care (in minutes): 55
[2021-03-10] MEDS: GABAPENTIN 100 MG CAP PO SCH (08:39)
[2021-03-10] MEDS: HYDRALAZINE HCL 25 MG TABLET PO SCH (08:40)
[2021-03-10] MEDS ORDERED: ASPIRIN EC 81 MG TAB PO SCH (09:00)
[2021-03-10] MEDS ORDERED: ISOSORBIDE MONO SR 30 MG TAB PO SCH ×2 (09:00)
[2021-03-10] MEDS ORDERED: NIFEDIPINE XL 60 MG TABLET PO SCH (09:00)
[2021-03-10] MEDS ORDERED: CLOPIDOGREL 75 MG TABLET PO SCH (09:00)
[2021-03-10 10:54] VITALS: BP 111/55
--- NOTE | 2021-03-10 13:05 | EKG ---
Test Date: 2021-03-09 Test Time: 14:13:47 Operations Executive: SUNITA MEASUREMENT RESULTS: Intervals: Rate: 65 TN: 144 QRSD: 98 QT: 470 QTc: 488 Turpin: P: 71 TN: 144 QRS: 60 T: 211 INTERPRETIVE STATEMENTS: Normal sinus rhythm RSR' or QR pattern in V1 suggests right ventricular conduction delay ST & T wave abnormality, consider inferolateral ischemia Prolonged QT Abnormal ECG Compared to ECG 12/29/2020 08:15:34 RSR' in V1 or V2 now present Prolonged QT interval now present ST (T wave) deviation still present Possible ischemia still present Electronically Signed On 03-10-21 13:02:39 [employer] SERVICES SUPERVISOR by Papi Mi
--- NOTE | 2021-03-10 17:58 | PN ---
Date of Progress Note: 03/10/2021 Subjective: The patient was admitted with fall, chest pain. Physical Examination: Vital Signs: Blood pressure 111/55, pulse of 72. Chest: Clear to auscultation. Heart: S1, S2. Regular. Abdomen: Soft, nontender. Extremities: No edema. Neuro: Alert. No focality. Laboratory Data: H and H 10.1/36.7. Sodium 135, potassium 4.7, bicarb 26, BUN 44, creatinine 6.3, c alcium 8.2, magnesium 2.4. Current Medications: The patient on include Plavix, carvedilol, atorvastatin, aspirin, isosorbide, m etoprolol, Zofran, pantoprazole. Assessment And Plan: 1.End-stage renal disease, slightly on the over volume. We will arrange for dialysis as outpatient. The patient is going to be dialyzed today. 2.Hypertension, controlled, optimal. Continue current treatment. 3.Chest pain. Acute coronary artery disease has been ruled out. 4.Over volume. The patient is going to be dialyzed and challenged today. LISETH/EVAN Voice ID: [id number] Report ID: [id number]
--- NOTE | 2021-03-16 10:11 | PN ---
Date of Progress Note: 03/10/2021 Subjective: Ms. Valdez has documented coronary artery disease, was seen by Dr. Santamaria. She had stabl e angina with significant known coronary artery disease. She had a patent BAUER to the LAD and a vein graft to the OM. 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 The plan was to do a PCI of her [place] right coronary artery with atherectomy. The plan is to do that as an outpatient overnight. She was on heparin and aspirin and continues to have some minimal pain, but mic stanley felt comfortable going home and having the RCA done as an outpatient. Her vital signs are stable. She is afebrile. She is in sinus rhythm. She has no rales, no edema. We will plan to discharge he r home. Continue her dialysis. Continue her medicine for blood pressure, diabetes, and cholesterol and plan an RCA atherectomy in [place]. DEGN/EVAN Voice ID: [id number] Report ID: [id number]
== END 2021-03-10 10:59 | disposition home or self-care (01) ==
LOC: ER 13:20 → ERHOLD 14:25 → 2ND 17:18
PROVIDERS: ADMIT Family Medicine; ATTEND Family Medicine
PROC: 5A1D70Z Performance of Urinary Filtration, Intermittent, Less than 6 Hours Per Day (ICD-10-PCS; principal; 2021-03-09)
DX: I25.119 Atherosclerotic heart disease of native coronary artery with unspecified angina pectoris (principal); I13.2 Hypertensive heart and chronic kidney disease with heart failure and with stage 5 chronic kidney disease, or end stage renal disease; I50.33 Acute on chronic diastolic (congestive) heart failure; N18.6 End stage renal disease; E11.22 Type 2 diabetes mellitus with diabetic chronic kidney disease; E11.40 Type 2 diabetes mellitus with diabetic neuropathy, unspecified; K21.9 Gastro-esophageal reflux disease without esophagitis; N25.0 Renal osteodystrophy; E78.5 Hyperlipidemia, unspecified; Z99.2 Dependence on renal dialysis; Z95.0 Presence of cardiac pacemaker; Z95.5 Presence of coronary angioplasty implant and graft; Z95.1 Presence of aortocoronary bypass graft; Z86.16 Personal history of COVID-19; Z20.822 Contact with and (suspected) exposure to COVID-19
CPT/HCPCS: 93005; 85025 ×2; 80048 ×2; 36415; 83735 ×2; 82550; 85610 ×2; 80061; 82947 ×3; 80076; 85730 ×4; 84443; 84484 ×2; 82553; 84439; 83690; 83880; 70450; 71045; 96375; 96374; 99285; 90935; U0003; J1644 ×3; J2270; J2405; G0257; G0378 ×2

== ENCOUNTER 2021-03-11 07:16 | Emergency (ER) | payer OTHER ==
--- OUTSIDE RECORDS SUMMARY | 2021-03-11 07:19 | XMS REPORT | Continuity of Care Document ---
:1955 Author Organization [facility] t Address [address] [place] [address] Dr. Abel. [address] [place] [address] Care Team Providers Name Role Phone MCKINLEY HUBBARD Attending Clinician Unavailable Kim WHITE Attending Clinician KIM Attending Clinician Unavailable Payers Payer Name Policy Type Policy Number Effective Date Expiration Date S justice [facility]/AARP [id number] 2020 MEDICARE ADVANTAGE 00:00:00 MEDICAID [facility] [id number] 2018 00:00:00 MEDICARE PART A [id number] 2014 \T\ B 00:00:00 [place] [id number] 2020 HEALTHCARE/AARP 00:00:00 Problems This patient has no known problems. Allergies, Adverse Reactions, Alerts Allergy Allergy Status Severity Reaction(s) Onset Inactive Treating Comm ents Source Name Type Date Date Clinician NO KNOWN Drug Active [facility] Medications This patient has no known medications. Procedures This patient has no known procedures. Encounters Start End Encounter Admission Attending Care Care Encounter Source Date/Time Date/Time Type Type Clinicians Facility Department ID 2018-09-18 Outpatient [id number] 08:26:04 2020-07-31 2020-07-31 Outpatient THOMAS WOOD [facility] [id number] [id number] Univers 10:00:00 10:00:00 [id number] [facility] 2020-07-31 2020-07-31 Outpatient THOMAS WOOD [facility] [id number] [facility] 10:00:00 10:00:00 [facility] 2020-07-22 2020-07-22 Outpatient THOMAS WOOD [facility] [id number] 2N-20 Univers 09:30:00 09[facility]30:[id number] 2020-07-22 Outpatient THOMAS WOOD [facility] [id number] [facility] 09:30:00 [facility] 2020-04-24 2020-04-24 Outpatient Nola HUBBARD [facility] [id number] 2N-20 Univers 10:45:00 10:45:00 [id number] [facility] 2020-04-24 2020-04-24 Outpatient Nola HUBBARD [facility] [id number] Univers 10:45:00 10:45:00 [facility] 2020-04-16 2020-04-16 [facility] [id number] 12:56:21 13:26:21 Visit Pascale Roberts [id number] [facility] [id number] [facility]io [id number] [address] 2020-04-16 2020-04-16 Outpatient R HERMELINDASAJI [facility] [id number] 2N-20 Univers 13:15:00 13:15:00 PASCALE [id number] [facility] 2020-04-16 2020-04-16 [facility] [id number] Univers 13:15:00 13:15:00 PASCALE [facility] 2018-01-22 2018-01-22 Emergency E MHSE [facility]SE [id number] MH 16:17:00 16:17:00 [facility] l Results This patient has no known results.
[2021-03-11] MEDS ORDERED: HYDROMORPHONE HCL 1 MG/ML INJ ONE (07:28)
[2021-03-11] MEDS ORDERED: ONDANSETRON 4 MG/2 ML VIAL ONE ×2 (07:28→08:24)
[2021-03-11 07:33] LABS: Absolute Lymphocytes (CBC) 0.7 K/uL (0.7-4.9); Basophils % 0.3 % (0-1.3); Hematocrit 32.9 % (36.0-45.0); Lymphocytes % 10.2 % (15.3-44.8); MPV 10.1 fL (7.6-11.3); RBC Red Blood Cell Count 3.42 M/uL (3.86-4.86)
[2021-03-11 07:35] LABS: Protime INR 1.33
--- NOTE | 2021-03-11 08:21 | RAD REPORT ---
EXAM DESCRIPTION: Samuel Single View03/11/2021 7:52 am CLINICAL HISTORY: Shortness of breath COMPARISON: March 09, 2021 FINDINGS: Mild bilateral pulmonary opacities. Heart is moderately enlarged. Postsurgical changes inv olve the chest. Pacemaker leads place IMPRESSION: These findings probably indicate mild CHF
[2021-03-11 08:23] LABS: ALT/SGPT 656 U/L (12-78); AST/SGOT 1402 U/L (15-37); Albumin 2.8 g/dL (3.4-5.0); Alkaline Phosphatase 176 U/L (45-117); BUN Blood Urea Nitrogen 62 mg/dL (7-18); Bicarbonate 23 mmol/L (21-32); Bilirubin Direct 0.3 mg/dL (0-0.2); Bilirubin Total 0.7 mg/dL (0.2-1.0); Glucose Level 209 mg/dL (74-106); Magnesium 2.5 mg/dL (1.8-2.4); Protein, Total 7.6 g/dL (6.4-8.2); Sodium Level 132 mmol/L (136-145); Troponin (Emerg Dept Use Only) 0.27 ng/mL (0.0-0.045)
[2021-03-11 08:29] LABS: NT PRO-BNP > 175000 pg/mL (<125)
[2021-03-11 08:46] LABS: Blood Morphology Comment NOT SEEN (NOT SEEN); Platelet Estimate DECR
--- NOTE | 2021-03-11 08:54 | RAD REPORT ---
EXAM DESCRIPTION: CT - Head Brain Wo Cont - 03/11/2021 7:48 am CLINICAL HISTORY: Headache COMPARISON: March 09, 2021 TECHNIQUE: Computed axial tomography of the head was obtained. IV contrast was not requested. All CT scans are performed using dose optimization technique as appropriate and may include automated exposure control or mA/KV adjustment according to patient size. FINDINGS: An intracranial bleed is not seen . The ventricles are normal in caliber. No extra-axial fluid collection is noted. Mild low-density areas within periventricular, deep and subcortical white matter likely represent isc hemic changes secondary to small vessel disease. Fluid within the sinuses/ mastoids is not seen. Chronic left maxillary sinusitis IMPRESSION: No acute intracranial abnormality is seen. If patient's symptoms persist MRI of the bra in would be recommended.
--- NOTE | 2021-03-11 09:39 | ER ---
Nurse's Notes [facility] Name: Qiana Valdez Age: 65 yrs Sex: Female : 1955 Arrival Date: 03/11/2021 Time: 07:17 Bed 4 Private MD: Diagnosis: Headache Presentation: 03/11 07:12 Chief complaint: EMS states: pt from home. got up to go to dialysis today having a tw2 headache. starts at the back of her head. 10/10 does not radiate. she does c/o dizziness when standing and also a noise in her ears. c/o weakness. she was seen here Tuesday for a fall and also had elevated troponin so she received Heparin. vs stable. bgl 231. Coronavirus screen: At this time, the client does not indicate any symptoms associated with coronavirus-19. Ebola Screen: Patient denies travel to an Ebola-affected area in the 21 days before illness onset. Note provider at bedside. 07:12 Method Of Arrival: EMS: [facility] tw2 07:27 Initial Sepsis Screen: Does the patient meet any 2 criteria? No. Patient's initial tw2 sepsis screen is negative. Does the patient have a suspected source of infection? No. Patient's initial sepsis screen is negative. Risk Assessment: Do you want to hurt yourself or someone else? Patient reports no desire to harm self or others. Onset of symptoms was March 11, 2021. 07:27 Acuity: SIXTO 3 tw2 Triage Assessment: 07:12 General: Appears in no apparent distress. Behavior is calm, cooperative, appropriate tw2 for age. Pain: Complains of pain in scalp Pain currently is 10 out of 10 on a pain scale. Pain began suddenly, Also complains of no other associated symptoms. Neuro: Level of Consciousness is awake, alert, obeys commands, Oriented to person, place, time, situation. Cardiovascular: Cardiovascular: Dialysis shunt: in the right arm. Respiratory: Airway is patent Respiratory effort is even, unlabored, Respiratory pattern is regular, symmetrical. GI: No signs and/or symptoms were reported involving the gastrointestinal system. Musculoskeletal: Range of motion: intact in all extremities. 07:12 Headache History: Denies prior headaches. 6 Historical: - Allergies: 07:25 No Known Allergies; tw2 - PMHx: 07:25 Chronic ischemic heart disease; Diabetes - IDDM; DIALYSIS MWF; ESRD; GERD; High tw2 Cholesterol; hyperparathyroidism; Hypertension; IRON DEFICIENCY ANEMIA; Myocardial infarction; Pacemaker; - Immunization history:: Adult Immunizations. - Social history:: Smoking status: . Screenin:12 Abuse screen: Denies threats or abuse. jh6 07:12 Nutritional screening: No deficits noted. Tuberculosis screening: No symptoms or risk jh6 factors identified. Fall Risk None identified. Assessment: 07:40 General: Appears in no apparent distress. uncomfortable, Behavior is cooperative, jh6 restless. Pain: Complains of pain in scalp Pain currently is 10 out of 10 on a pain scale. Quality of pain is described as aching, dull, Pain began 1 day ago. Is continuous, Alleviated by nothing. Aggravated by LAYING FLAT Noted to be grimacing. Neuro: No deficits noted. 08:03 General: Reports The patient desalted to 69 -71%. Wave form appears good . O2 per sv1 cannula applied at 2L. Sats up to 93% now. 08:20 Reassessment: Patient and/or family updated on plan of care and expected duration. Pain jh6 level reassessed. Patient is alert, oriented x 3, equal unlabored respirations, skin warm/dry/pink. reports pain a little better but nausea is still the same. easy to arouse and call light in reach. 09:13 Reassessment: Patient and/or family updated on plan of care and expected duration. Pain jh6 level reassessed. Patient is alert, oriented x 3, equal unlabored respirations, skin warm/dry/pink. Patient states feeling better. Pain: Pain currently is 3 out of 10 on a pain scale. Neuro: No deficits noted. 09:41 Reassessment: pt placed on RA to observe prior to discharge. tw2 Vital Signs: 07:12 BP 149 / 66; Pulse 69; Temp 97.2(TE); tw2 07:12 Resp 18; Pulse Ox 98% on R/A; Weight 73.5 kg (R); Height 5 ft. 0 in. (152.40 cm); Pain tw2 10/10; 08:30 BP 115 / 59; Pulse 60; Resp 18; Pulse Ox 100% on 12% Non-rebreather mask; jh6 08:59 BP 106 / 56; Pulse 60; Resp 16; Pulse Ox 100% on 12% Non-rebreather mask; Pain 3/10; jh6 09:40 BP 125 / 60; Pulse 60; Resp 12; Pulse Ox 100% on Non-rebreather mask; tw2 10:10 BP 98 / 59; Pulse 73; Resp 18; Temp 97.9; Pulse Ox 94% on R/A; Pain 0/10; jh6 07:12 Body Mass Index 31.65 (73.50 kg, 152.40 cm) tw2 NIH Stroke Scale Scores: 07:12 NIHSS Score: 0 6 ED Course: 07:12 Patient has correct armband on for positive identification. Placed in gown. Bed in low jh6 position. Call light in reach. Side rails up X 1. 07:12 Door closed. Lights dimmed. Warm blanket given. jh6 07:17 Patient arrived in ED. tw2 07:17 Marta Machuca MD is Attending Physician. sp3 07:25 Arm band placed on. tw2 07:27 Triage completed. tw2 07:30 Initial lab(s) drawn, by nv, sent to lab. jh6 07:38 Meeta Hyatt, RN is Primary Nurse. jh6 07:39 CT Head Brain wo Cont Sent. jh6 07:46 CT Head Brain wo Cont In Process Unspecified. EDMS 07:52 XRAY Chest (1 view) In Process Unspecified. EDMS 10:11 No provider procedures requiring assistance completed. jh6 10:12 IV discontinued, intact, bleeding controlled, No redness/swelling at site. Pressure jh6 dressing applied. Administered Medications: 07:30 Drug: Dilaudid (HYDROmorphone) 1 mg Route: IVP; Site: left wrist; jh6 09:35 Follow up: Response: Pain is decreased jh6 07:30 Drug: Zofran (Ondansetron) 4 mg Route: IVP; Site: left wrist; jh6 09:35 Follow up: Response: Nausea is decreased [facility] Outcome: 09:39 Discharge ordered by . sp3 10:11 Discharged to home ambulatory, via wheelchair. jh6 10:11 Condition: good 10:11 Discharge instructions given to patient, Instructed on discharge instructions, follow up and referral plans. Demonstrated understanding of instructions, follow-up care. 10:27 Patient left the ED. jh6 NIH Stroke Scale - NIH Stroke Score Date: 03/11/2021 Time: 07:12 Total Score = 0 1a. Level of Consciousness (LOC) - 0(Alert) 1b. Level of Consciousness (LOC) (Month \T\ Age) - 0(Both) 1c. LOC Commands (Open \T\ Closes Eyes/Toy Packer) - 0(Both) 2. Best Gaze (Lateral Gaze Paresis) - 0(Normal) 3. Visual Field Loss - 0(No visual loss) 4. Facial Palsy - 0(Normal) 5a. Left Arm: Motor (10-second hold) - 0(No drift) 5b. Right Arm: Motor (10-second hold) - 0(No drift) 6a. Left Leg: Motor (5-second hold - always test supine) - 0(No drift) 6b. Right Leg: Motor (5-second hold - always test supine) - 0(No drift) 7. Limb Ataxia (finger/nose \T\ heel/romo - test with eyes open) - 0(Absent) 8. Sensory Loss (pinprick arms/legs/face) - 0(Normal) 9. Best Language: Aphasia (description/naming/reading) - 0(No aphasia) 10. Dysarthria (speech clarity - read or repeat words) - 0(Normal) 11. Extinction and Inattention (visual/tactile/auditory/spatial/personal) - 0(No abnormality) Initials: [facility] Signatures: Dispatcher [employer] EDMS Windy Mccoy RN RN tw2 Marta Machuca MD MD sp3 Meeta Hyatt RN RN 6 Ricci Rivera RN RN sv1 Corrections: (The following items were deleted from the chart) 07: 07:12 Chief complaint: EMS states: pt from home. got up to go to dialysis today tw2 having a headache. 01/11 does not radiate. she does c/o dizziness when standing and also a noise in her ears. c/o weakness. she was seen here Tuesday for a fall and also had elevated troponin so she received Heparin. vs stable. bgl 231 tw2
--- NOTE | 2021-03-11 09:39 | EDPHYS ---
Physician Documentation [facility] Name: Qiana Valdez Age: 65 yrs Sex: Female : 1955 Arrival Date: 03/11/2021 Time: 07:17 Bed 4 Private MD: ED Physician Marta Machuca HPI: 03/11 07:20 This 65 yrs old Female presents to ER via Unassigned with complaints of sp3 Headache. 07:20 65-year-old female with a history of diabetes, hypertension, hyperlipidemia, chronic sp3 ischemic heart disease, end-stage renal disease (Tuesday) presents today with chief complaint headache which started earlier this morning. Patient was admitted to the hospital 2 days ago for syncope at which time she received a head CT and cardiac work-up which demonstrated elevated troponins in the setting of hemodialysis. She was discharged in a set for outpatient PCI before that could get scheduled she developed her headache and is back in the ED today. Patient denies any chest pain, shortness of breath abdominal pain, nausea, vomiting, diarrhea, extremity pain, further syncope or near syncope, memory loss, neuro deficits, any other ROS at this time. Headache is described as posterior associated with mild blurry vision. Patient denies any trauma at this time with her last fall being Tuesday morning for which she was seen here.. Historical: - Allergies: 07:25 No Known Allergies; tw2 - PMHx: 07:25 Chronic ischemic heart disease; Diabetes - IDDM; DIALYSIS MWF; ESRD; GERD; High tw2 Cholesterol; hyperparathyroidism; Hypertension; IRON DEFICIENCY ANEMIA; Myocardial infarction; Pacemaker; - Immunization history:: Adult Immunizations. - Social history:: Smoking status: . ROS: 07:22 ENT: Negative for injury, pain, and discharge, Neck: Negative for injury, pain, and sp3 swelling, Cardiovascular: Negative for chest pain, palpitations, and edema, Respiratory: Negative for shortness of breath, cough, wheezing, and pleuritic chest pain, Abdomen/GI: Negative for abdominal pain, nausea, vomiting, diarrhea, and constipation, MS/Extremity: Negative for injury and deformity, Skin: Negative for injury, rash, and discoloration, Psych: Negative for depression, anxiety, suicide ideation, homicidal ideation, and hallucinations, Allergy/Immunology: Negative for hives, rash, and allergies, Endocrine: Negative for neck swelling, polydipsia, polyuria, polyphagia, and marked weight changes, Hematologic/Lymphatic: Negative for swollen nodes, abnormal bleeding, and unusual bruising. 07:22 All other systems are negative. Exam: 07:22 Constitutional: This is a well developed, well nourished patient who is awake, alert, sp3 and in no acute distress. Head/Face: Normocephalic, atraumatic. Eyes: Pupils equal round and reactive to light, extra-ocular motions intact. Lids and lashes normal. Conjunctiva and sclera are non-icteric and not injected. Cornea within normal limits. Periorbital areas with no swelling, redness, or edema. ENT: Nares patent. No nasal discharge, no septal abnormalities noted. External auditory canals are clear. Oropharynx with no redness, swelling, or masses, exudates, or evidence of obstruction, uvula midline. Mucous membranes moist. Neck: Trachea midline, no thyromegaly or masses palpated, and no cervical lymphadenopathy. Supple, full range of motion without nuchal rigidity, or vertebral point tenderness. No Meningismus. Chest/axilla: Normal chest wall appearance and motion. Nontender with no deformity. No lesions are appreciated. Cardiovascular: Regular rate and rhythm with a normal S1 and S2. No gallops, murmurs, or rubs. Normal PMI, no JVD. No pulse deficits. Respiratory: Lungs have equal breath sounds bilaterally, clear to auscultation and percussion. No rales, rhonchi or wheezes noted. No increased work of breathing, no retractions or nasal flaring. Abdomen/GI: Soft, non-tender, with normal bowel sounds. No distension or tympany. No guarding or rebound. No evidence of tenderness throughout. Skin: Warm, dry with normal turgor. Normal color with no rashes, no lesions, and no evidence of cellulitis. MS/ Extremity: Pulses equal, no cyanosis. Neurovascular intact. Full, normal range of motion. Neuro: Awake and alert, GCS 15, oriented to person, place, time, and situation. Cranial nerves II-XII grossly intact. Motor strength 5/5 in all extremities. Sensory grossly intact. Cerebellar exam normal. Normal gait. Psych: Awake, alert, with orientation to person, place and time. Behavior, mood, and affect are within normal limits. Vital Signs: 07:12 BP 149 / 66; Pulse 69; Temp 97.2(TE); tw2 07:12 Resp 18; Pulse Ox 98% on R/A; Weight 73.5 kg (R); Height 5 ft. 0 in. (152.40 cm); Pain tw2 10/10; 08:30 BP 115 / 59; Pulse 60; Resp 18; Pulse Ox 100% on 12% Non-rebreather mask; jh6 08:59 BP 106 / 56; Pulse 60; Resp 16; Pulse Ox 100% on 12% Non-rebreather mask; Pain 3/10; jh6 09:40 BP 125 / 60; Pulse 60; Resp 12; Pulse Ox 100% on Non-rebreather mask; tw2 10:10 BP 98 / 59; Pulse 73; Resp 18; Temp 97.9; Pulse Ox 94% on R/A; Pain 0/10; jh6 07:12 Body Mass Index 31.65 (73.50 kg, 152.40 cm) tw2 NIH Stroke Scale Scores: 07:12 NIHSS Score: 0 [facility] MDM: 07:17 Patient medically screened. sp3 07:23 Data reviewed: vital signs, nurses notes, EMS record. ED course: 65-year-old female sp3 with headache in the setting of a complex cardiac history and renal state. Will repeat head CT given the fact that she received heparin recently and will also repeat cardiac work-up. Will treat with pain medication and reevaluate for ultimate disposition.. 09:38 ED course: Patient's headache is fully resolved. CT scan is negative. Troponin is less sp3 than on her last visit. Will discharge home with outpatient catheterization follow-up as directed on her discharge 2 days ago.. 03/11 07:18 Order name: Basic Metabolic Panel; Complete Time: 08:52 sp3 03/11 07:18 Order name: CBC with Diff; Complete Time: 08:52 sp3 03/11 07:18 Order name: LFT's; Complete Time: 08:52 sp3 03/11 07:18 Order name: Magnesium; Complete Time: 08:52 sp3 03/11 07:18 Order name: NT PRO-BNP; Complete Time: 08:52 sp3 03/11 07:18 Order name: PT-INR; Complete Time: 08:52 sp3 03/11 07:18 Order name: Troponin (emerg Dept Use Only); Complete Time: 08:52 sp3 03/11 07:18 Order name: XRAY Chest (1 view); Complete Time: 08:52 sp3 03/11 07:18 Order name: EKG; Complete Time: 07:19 sp3 03/11 07:18 Order name: Cardiac monitoring; Complete Time: 07:24 sp3 03/11 07:18 Order name: CT Head Brain wo Cont; Complete Time: 09:36 sp3 03/11 07:37 Order name: Manual Differential; Complete Time: 08:52 EDMS 03/11 07:18 Order name: EKG - Nurse/Tech; Complete Time: 07:24 sp3 03/11 07:18 Order name: IV Saline Lock; Complete Time: 07:24 sp3 03/11 07:18 Order name: Labs collected and sent; Complete Time: 07:24 sp3 03/11 07:18 Order name: O2 Per Protocol; Complete Time: 07:25 sp3 03/11 07:18 Order name: O2 Sat Monitoring; Complete Time: 07:25 sp3 Administered Medications: 07:30 Drug: Dilaudid (HYDROmorphone) 1 mg Route: IVP; Site: left wrist; jh6 09:35 Follow up: Response: Pain is decreased [facility] 07:30 Drug: Zofran (Ondansetron) 4 mg Route: IVP; Site: left wrist; jh6 09:35 Follow up: Response: Nausea is decreased 6 Disposition Summary: 03/11/21 09:39 Discharge Ordered Location: Home sp3 Condition: Stable sp3 Diagnosis - Headache sp3 Followup: sp3 - With: Private Physician - When: - Reason: Re-evaluation by your physician Discharge Instructions: - Discharge Summary Sheet sp3 - General Headache Without Cause sp3 Forms: - Medication Reconciliation Form sp3 - Thank You Letter sp3 - Antibiotic Education sp3 - Prescription Opioid Use sp3 NIH Stroke Scale - NIH Stroke Score Date: 03/11/2021 Time: 07:12 Total Score = 0 1a. Level of Consciousness (LOC) - 0(Alert) 1b. Level of Consciousness (LOC) (Month \T\ Age) - 0(Both) 1c. LOC Commands (Open \T\ Closes Eyes/Photo Colorer) - 0(Both) 2. Best Gaze (Lateral Gaze Paresis) - 0(Normal) 3. Visual Field Loss - 0(No visual loss) 4. Facial Palsy - 0(Normal) 5a. Left Arm: Motor (10-second hold) - 0(No drift) 5b. Right Arm: Motor (10-second hold) - 0(No drift) 6a. Left Leg: Motor (5-second hold - always test supine) - 0(No drift) 6b. Right Leg: Motor (5-second hold - always test supine) - 0(No drift) 7. Limb Ataxia (finger/nose \T\ heel/romo - test with eyes open) - 0(Absent) 8. Sensory Loss (pinprick arms/legs/face) - 0(Normal) 9. Best Language: Aphasia (description/naming/reading) - 0(No aphasia) 10. Dysarthria (speech clarity - read or repeat words) - 0(Normal) 11. Extinction and Inattention (visual/tactile/auditory/spatial/personal) - 0(No abnormality) Initials: jh6 Signatures: Dispatcher [employer] Windy Lin, RN RN tw2 Marta Machuca MD MD sp3 Meeta Hyatt RN RN jh6
[2021-03-11 10:46] VITALS: BP 98/59; TEMP 97.9; O2SAT 94
== END 2021-03-11 10:27 | disposition home or self-care (01) ==
LOC: ER 07:16
DX: R51.9 Headache, unspecified (principal); I10 Essential (primary) hypertension; E11.22 Type 2 diabetes mellitus with diabetic chronic kidney disease; I12.0 Hypertensive chronic kidney disease with stage 5 chronic kidney disease or end stage renal disease; N18.6 End stage renal disease; Z99.2 Dependence on renal dialysis; Z95.0 Presence of cardiac pacemaker
CPT/HCPCS: 93005; 85025; 80048; 36415; 83735; 85610; 80076; 84484; 83880; 70450; 71045; 96375; 96374; 99284; J1170; J2405 ×2

== ENCOUNTER 2021-03-11 16:17 | Emergency (ER) | payer OTHER ==
--- OUTSIDE RECORDS SUMMARY | 2021-03-11 16:19 | XMS REPORT | Continuity of Care Document ---
:1955 Author Organization [facility] t Address [address] [place] [address] [address] [place] [address] Care Team Providers Name Role Phone MCKINLEY HUBBARD Attending Clinician Unavailable Kim WHITE Attending Clinician KIM Attending Clinician Unavailable Payers Payer Name Policy Type Policy Number Effective Date Expiration Date S justice [facility]/A[facility] [id number] 2020 MEDICARE ADVANTAGE 00:00:00 MEDICAID [facility] [id number] 2018 00:00:00 MEDICARE PART A [id number] 2014 \T\ B 00:00:00 [place] [employer] [id number] 2020 HEALTHCARE/AARP 00:00:00 Problems This patient has no known problems. Allergies, Adverse Reactions, Alerts Allergy Allergy Status Severity Reaction(s) Onset Inactive Treating Comm ents Source Name Type Date Date Clinician NO KNOWN Drug Active [facility] Class [facility] Medications This patient has no known medications. Procedures This patient has no known procedures. Encounters Start End Encounter Admission Attending Care Care Encounter Source Date/Time Date/Time Type Type Clinicians Facility Department ID 2018-09-18 Outpatient [facility] [id number] [facility] 08:26:04 2020-07-31 2020-07-31 Outpatient [facility] [id number] [id number] Univers 10:00:00 10:00:00 [id number] [facility] 2020-07-31 2020-07-31 Out[facility] [id number] [facility] 10:00:00 10:00:00 [facility] 2020-07-22 2020-07-22 Outpatient [facility] [id number] [id number] Univers 09:30:00 09:30:00 [id number] [facility] 2020-07-22 2020-07-22 Out[facility] [id number] [facility] 09:30:00 09:30:00 [facility] 2020-04-24 2020-04-24 Outpatient Nola HUBBARD [facility] [id number] [id number] Univers 10:45:00 10:45:00 [id number] [facility] 2020-04-24 2020-04-24 Outpatient Nola HUBBARD [facility] [id number] Univers 10:45:00 10:45:00 [facility] 2020-04-16 2020-04-16 [facility] [id number] 12:56:21 13:26:21 Visit Pascale Roberts [id number] [facility] [id number] [facility] [id number] [address] 2020-04-16 2020-04-16 Outpatient R [facility]I [facility] [id number] 2N-20 Univers 13:15:00 13:15:00 PASCALE [id number] [facility] 2020-04-16 2020-04-16 Outpatient R KIMUC [facility] [id number] Univers 13:15:00 13:15:00 PASCALE [facility] 2018-01-22 2018-01-22 Emergency E [facility]SE [facility] [id number] MH 16:17:00 16:17:00 [facility] a [facility] l Results This patient has no known results.
--- NOTE | 2021-03-11 17:15 | ER ---
Nurse's Notes [facility] Name: Qiana Valdez Age: 65 yrs Sex: Female : 1955 Arrival Date: 03/11/2021 Time: 16:28 Bed 5 Private MD: Diagnosis: Headache Presentation: 03/11 16:30 Chief complaint: Patient states: stated that her kidney doctor wanted her to get ck'd jh6 out again for cont headache. pt was able to go and get full dialysis treatment after d/c from er today. Coronavirus screen: At this time, unable to obtain information related to travel outside the [place] At this time, the client does not indicate any symptoms associated with coronavirus-19. Ebola Screen: No symptoms or risks identified at this time. Initial Sepsis Screen: Does the patient meet any 2 criteria? No. Patient's initial sepsis screen is negative. Does the patient have a suspected source of infection? No. Patient's initial sepsis screen is negative. Risk Assessment: Do you want to hurt yourself or someone else? Patient reports no desire to harm self or others. 16:30 Method Of Arrival: EMS: [facility] 16:30 Acuity: SIXTO 3 jh6 16:47 Onset of symptoms was March 11, 2021. sv1 Triage Assessment: 16:44 General: Appears uncomfortable. sv1 16:45 Pain: Complains of pain in scalp. sv1 16:47 General: Behavior is cooperative, appropriate for age. sv1 Historical: - Allergies: 16:30 No Known Allergies; tw2 - PMHx: 16:30 Chronic ischemic heart disease; Diabetes - IDDM; DIALYSIS MWF; ESRD; GERD; tw2 hyperparathyroidism; Hypertension; IRON DEFICIENCY ANEMIA; Myocardial infarction; Pacemaker; High Cholesterol; - Immunization history:: Adult Immunizations. - Social history:: Smoking status: . - Family history:: not pertinent. Screenin:30 Abuse screen: Denies threats or abuse. Nutritional screening: No deficits noted. tw2 Tuberculosis screening: No symptoms or risk factors identified. Fall Risk Secondary diagnosis (15 points) impaired mobility. Assessment: 16:29 Reassessment: provider at bedside at this time. tw2 16:52 General: CC of headache 10/11. She was seen earlier ,was discharged , went to dialysis sv1 and returned to the emergency department .The patient denies photophobia and vomiting .The provider is at the bedside.. 17:24 Reassessment: Patient appears in no apparent distress at this time. Patient and/or iw family updated on plan of care and expected duration. Pain level reassessed. Patient is alert, oriented x 3, equal unlabored respirations, skin warm/dry/pink. Vital Signs: 16:30 BP 132 / 67; Pulse 100; Resp 97; Temp 97.5(O); Pulse Ox 97% ; Weight 74 kg; Height 5 6 ft. 3 in. (160.02 cm); Pain 4/10; 16:50 BP 137 / 62; Pulse 60; Resp 11; Pulse Ox 92% 0 lpm ; sv1 17:13 BP 126 / 68; Pulse 60; Resp 10; Pulse Ox 91% 0 lpm ; sv1 16:30 Body Mass Index 28.90 (74.00 kg, 160.02 cm) [facility] ED Course: 16:28 Patient arrived in ED. iw 16:28 Bed in low position. Call light in reach. awake overnight monitor on. Pulse ox on. NIBP on. tw2 16:31 Marta Machuca MD is Attending Physician. sp3 16:37 Triage completed. [facility] 16:44 Ricci Rivera, SUNITA is Primary Nurse. sv1 16:46 Arm band placed on right wrist. sv1 16:48 No provider procedures requiring assistance completed. Patient did not have IV access sv1 during this emergency room visit. 17:14 Sahil Henderson MD is Referral Physician. sp3 Administered Medications: No medications were administered Outcome: 17:15 Discharge ordered by . sp3 17:24 Discharged to home via wheelchair, with family. iw 17:24 Condition: good 17:24 Discharge instructions given to patient, Instructed on discharge instructions, follow up and referral plans. medication usage, Demonstrated understanding of instructions, follow-up care, medications, Prescriptions given X 1. 17:31 Patient left the ED. iw Signatures: Yvrose Fonseca, RN RN Windy Mccoy RN RN 2 Marta Machuca MD MD sp3 Meeta Hyatt RN RN [facility] Ricci Rivera, SUNITA RN sv1
--- NOTE | 2021-03-11 17:15 | EDPHYS ---
Physician Documentation [facility] Name: Qiana Valdez Age: 65 yrs Sex: Female : 1955 Arrival Date: 03/11/2021 Time: 16:28 Bed 5 Private MD: ED Physician Marta Machuca HPI: 03/11 17:12 This 65 yrs old Female presents to ER via EMS with complaints of Headache. sp3 17:12 64-year-old female history of heart disease diabetes and dialysis seen earlier today by sp3 me now presents after dialysis after being discharged earlier. She was seen for headache and had an extensive work-up performed. Her pain was improved after Dilaudid and was subsequently discharged. After dialysis her pain is starting to return and so she came back for further guidance. No change in any of her findings or history from her prior visit.. Historical: - Allergies: 16:30 No Known Allergies; tw2 - PMHx: 16:30 Chronic ischemic heart disease; Diabetes - IDDM; DIALYSIS MWF; ESRD; GERD; tw2 hyperparathyroidism; Hypertension; IRON DEFICIENCY ANEMIA; Myocardial infarction; Pacemaker; High Cholesterol; - Immunization history:: Adult Immunizations. - Social history:: Smoking status: . - Family history:: not pertinent. ROS: 17:13 Constitutional: Negative for fever, chills, and weight loss, Eyes: Negative for injury, sp3 pain, redness, and discharge, Neck: Negative for injury, pain, and swelling, Cardiovascular: Negative for chest pain, palpitations, and edema, Respiratory: Negative for shortness of breath, cough, wheezing, and pleuritic chest pain, Abdomen/GI: Negative for abdominal pain, nausea, vomiting, diarrhea, and constipation, Back: Negative for injury and pain, MS/Extremity: Negative for injury and deformity, Skin: Negative for injury, rash, and discoloration, Psych: Negative for depression, anxiety, suicide ideation, homicidal ideation, and hallucinations, Allergy/Immunology: Negative for hives, rash, and allergies, Endocrine: Negative for neck swelling, polydipsia, polyuria, polyphagia, and marked weight changes. Exam: 17:13 Constitutional: This is a well developed, well nourished patient who is awake, alert, sp3 and in no acute distress. Head/Face: Normocephalic, atraumatic. Eyes: Pupils equal round and reactive to light, extra-ocular motions intact. Lids and lashes normal. Conjunctiva and sclera are non-icteric and not injected. Cornea within normal limits. Periorbital areas with no swelling, redness, or edema. Neck: Trachea midline, no thyromegaly or masses palpated, and no cervical lymphadenopathy. Supple, full range of motion without nuchal rigidity, or vertebral point tenderness. No Meningismus. Chest/axilla: Normal chest wall appearance and motion. Nontender with no deformity. No lesions are appreciated. Cardiovascular: Regular rate and rhythm with a normal S1 and S2. No gallops, murmurs, or rubs. Normal PMI, no JVD. No pulse deficits. Respiratory: Lungs have equal breath sounds bilaterally, clear to auscultation and percussion. No rales, rhonchi or wheezes noted. No increased work of breathing, no retractions or nasal flaring. Abdomen/GI: Soft, non-tender, with normal bowel sounds. No distension or tympany. No guarding or rebound. No evidence of tenderness throughout. Back: No spinal tenderness. No costovertebral tenderness. Full range of motion. Skin: Warm, dry with normal turgor. Normal color with no rashes, no lesions, and no evidence of cellulitis. MS/ Extremity: Pulses equal, no cyanosis. Neurovascular intact. Full, normal range of motion. Neuro: Awake and alert, GCS 15, oriented to person, place, time, and situation. Cranial nerves II-XII grossly intact. Motor strength 5/5 in all extremities. Sensory grossly intact. Cerebellar exam normal. Normal gait. Psych: Awake, alert, with orientation to person, place and time. Behavior, mood, and affect are within normal limits. Vital Signs: 16:30 BP 132 / 67; Pulse 100; Resp 97; Temp 97.5(O); Pulse Ox 97% ; Weight 74 kg; Height 5 jh6 ft. 3 in. (160.02 cm); Pain 4/10; 16:50 BP 137 / 62; Pulse 60; Resp 11; Pulse Ox 92% 0 lpm ; sv1 17:13 BP 126 / 68; Pulse 60; Resp 10; Pulse Ox 91% 0 lpm ; sv1 16:30 Body Mass Index 28.90 (74.00 kg, 160.02 cm) [facility] MDM: 16:34 Patient medically screened. sp3 17:14 Data reviewed: vital signs, nurses notes. ED course: Will discharge patient on tramadol sp3 and have her follow-up with her PCP. There is no change in her neurological status to warrant additional CT or other imaging.. Administered Medications: No medications were administered Disposition Summary: 03/11/21 17:15 Discharge Ordered Location: Home sp3 Condition: Stable sp3 Diagnosis - Headache sp3 Followup: sp3 - With: Private Physician - When: - Reason: Re-evaluation by your physician Followup: sp3 - With: Sahil Henderson MD - When: Upon discharge from the Emergency Department - Reason: Re-evaluation by your physician Discharge Instructions: - Discharge Summary Sheet sp3 - General Headache Without Cause sp3 Forms: - Medication Reconciliation Form sp3 - Thank You Letter sp3 - Antibiotic Education sp3 - Prescription Opioid Use sp3 Prescriptions: - Tramadol 50 mg Oral Tablet - take 1 tablet by ORAL route every 8 hours as needed; 12 tablet; Refills: 0, sp3 Product Selection Permitted Signatures: Windy Mccoy RN RN tw2 Marta Machuca MD MD sp3 Ricci Rivera RN RN sv1
[2021-03-11 17:46] VITALS: TEMP 97.5
[2021-03-11 17:49] VITALS: BP 126/68; O2SAT 91
== END 2021-03-11 17:31 | disposition home or self-care (01) ==
LOC: ER 16:17
DX: R51.9 Headache, unspecified (principal); E11.22 Type 2 diabetes mellitus with diabetic chronic kidney disease; I12.0 Hypertensive chronic kidney disease with stage 5 chronic kidney disease or end stage renal disease; N18.6 End stage renal disease; Z99.2 Dependence on renal dialysis; Z95.0 Presence of cardiac pacemaker
CPT/HCPCS: 99284

== ENCOUNTER 2021-06-04 19:51 | Inpatient (IN) | payer OTHER ==
--- OUTSIDE RECORDS SUMMARY | 2021-06-04 19:58 | XMS REPORT | Continuity of Care Document ---
:1955 Author Organization [facility] t Address [address] [place] [address] Care Team Providers Name Role Phone Dianna Nunes MD, [place] Primary Care Physician Donald DORSEY, B Attending Clinician Unavailable Singer OLIVIER Attending Clinician William TRUJILLO Attending Clinician WILLIAM Attending Clinician Unavailable Paola Simms LMSW Attending Clinician Cata Murcia MD Attending Clinician Nemo GREGG Attending Clinician NEMO Attending Clinician Unavailable Fuentes DORSEY Attending Clinician Unavailable Freddie Attending Clinician Unavailable Kim WHITE Attending Clinician William TRUJILLO Admitting Clinician WILLIAM Admitting Clinician Unavailable Payers Payer Name Policy Type Policy Number Effective Date Expiration Date S ource Problems Condition Condition Condition Status Onset Resolution Last Treating Co mments Source Name Details Category Date Date Treatment Clinician Date Pulmonary Pulmonary Disease Active Uni vers hypertensi hypertensi 2-13 it y of on on 00:00: [place] 00 Medical Branch Acute on Acute on Disease Active Unive rs chronic chronic 2-13 [place] of respirator [place] failure 00 [facility] yoel with with Branch hypoxia hypoxia ESRD (end ESRD (end Disease Active Uni vers stage stage 2-12 ity of renal renal 00:00: [place] disease) disease) 00 Medica l on on Branch dialysis dialysis Coronary Coronary Disease Active Unive rs artery artery 2-12 ity of disease disease 00:00: [place] involving involving 00 Medi [place] Branch coronary coronary artery of artery of [place] heart with heart with angina angina pectoris pectoris Pacemaker Pacemaker Disease Active Uni vers 2-12 ity of 00:00: [place] 00 Medical Branch Acute on Acute on Disease Active Unive rs chronic chronic 2-12 [facility] Me dical heart heart Branch failure failure PAD PAD Disease Active Univers (periphera (periphera 2-12 it y of l artery l artery 00:00: [place] disease) disease) 00 Medica l Branch Primary Primary Disease Active Univers hypertensi hypertensi 2-12 it y of on on 00:00: [place] 00 Medical Branch 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 00:00: [place] with with 00 Medical kidney kidney Branch complicati complicati on, on, without without long-term long-term current current use of use of insulin insulin Hypertensi Hypertensi Disease Active U christian on, on, 2-11 ity of unspecifie unspecifie 00:[place] d type d type 00 Medical Branch 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 00:00: [place] with with 00 Medical diabetic diabetic Branch polyneurop polyneurop athy, athy, without without long-term long-term current current use of use of insulin insulin Cerebrovas Cerebrovas Disease Active U nivcatehrine cular cular 2-11 ity of accident accident 00:00: [place] (CVA), (CVA), 00 Medical unspecifie unspecifie Br anch d d mechanism mechanism ESRD on ESRD on Disease Active Univers dialysis dialysis 2-11 ity of 00:00: [place] 00 Medical Branch Fall on Fall on Disease Active Univers concrete concrete 2-11 ity of 00:00: [place] 00 Medical Branch Acute pain Acute pain Disease Active U nivers of right of right 2-11 ity of knee knee 00:00: Medical Branch Dizziness Dizziness Disease Active Uni vers 2-11 ity of 00:00: Medical Branch Lower leg Lower leg Disease Active Uni vers edema edema 2-11 ity of 00:00: Medical Branch Abnormal Abnormal Disease Active Unive rs EKG EKG 2-11 ity of 00:00: [place] [facility] Chest Chest Disease Active Univers pressure pressure 2-11 ity of 00:00: Medical Branch Chest pain Chest pain Disease Active U nivers 2-11 ity of 00:00: Medical Branch Postmenopa Postmenopa Disease Active U nivers usal usal 4-20 ity of bleeding bleeding 00:00: [place] [facility] Obesity Obesity Disease Active Univers (BMI (BMI 4-20 ity of 30-39.9) 30-39.9) 00:00: [place] [facility] Hematoma Hematoma Disease Active [facility] di 4-18 [facility] 00:[facility]: [facility] 00 l Acute Acute Disease Active [facility]i gastroente gastroente 3-20 st ritis ritis 00:00: [facility] 00 l Type 2 Type 2 Disease Active [facility] diabetes diabetes 3-27 st mellitus mellitus 00:00: Hospit a with with 00 l diabetic diabetic chronic chronic kidney kidney disease disease Wears Wears Disease Active [facility] glasses glasses [facility]ospita l Allergies, Adverse Reactions, Alerts Allergy Allergy Status Severity Reaction(s) Onset Inactive Treating Comm ents Source Name Type Date Date Clinician Heparin Propensi Active "won't Methodi ty to [address] adverse 00:00: bleeding" Hospit a reaction 00 l s to drug NO KNOWN Drug Active Univers ALLERGIE Class ity of S [facility] Family History Family Member Diagnosis Comments Start Date Stop Date Source Natural brother [facility] father [facility] mother [facility] [place] sister [facility] Social History Social Habit Start Date Stop Date Quantity Comments Source History SDOH [facility] spital Alcohol Std Drinks History SDOH [facility] sp[facility] Alcohol Binge History SDVA Y[facility]dan[facility] spital Alcohol Comment Exposure to Not sure [facility] SARS-CoV-2 [facility] (event) Branch Tobacco use and 2020-07-24 2020-07-[address] [facility] - exposure 00:00:00 00:00:00 Medical Center Alcohol intake 2018-10-27 2018-10-27 Current [facility] 00:00:00 00:00:00 non-drinker of alcohol (finding) History SDOH 2018-10-26 2018-10-26 1 [facility] spital Alcohol Frequency 00:00:00 00:00:00 [birth year] Universit y of 00:00:00 00:00:00 [facility] Smoking Status Start Date Stop Date Source Unknown if ever smoked [facility] Never smoker [facility] Medications Ordered Filled Start Stop Current Ordering Indication Dosage Frequency Signature Comments Components Source Medication Medication Date Date Medication? Clinician (SIG) Name Name aspirin 81 2021- Yes [id number] 81mg Take 1 Univers mg chewable 05-23 tablet by it y of tablet 00:00: 04:59 mouth [place] 00 :00 daily for Medical 30 days. Branch clopidogreL 2021- Yes [id number] 75mg Take 1 Univers 75 mg 05-23 tablet by ity of tablet 00:00: 04:59 mouth [place] 00 :00 daily for Medical 30 days. Branch isosorbide 2021- Yes [id number] 30mg Take 1 Univers mononitrate 05-23 tablet by it y of 30 mg 24 hr 00:00: 04:59 [place] tablet 00 :00 daily for Medical 30 days. Branch lisinopriL 2021- Yes [id number] 5mg Take 1 Univers 5 mg tablet 05-23 tablet by it y of 00:00: 04:59 mouth [place] 00 :00 daily for Medical 30 days. Branch vitamin b 2021- Yes [id number] 1{tbl} Take 1 Univers complex-vit 05-23 tablet by it y of miller 00:00: 04:59 mouth [place] c-folic 00 :00 daily for Medical acid 0.8 mg 30 days. Bran ch tablet aspirin 81 2021- Yes [id number] 81mg Take 1 Univers mg chewable 05-23 tablet by it y of tablet 00:00: 04:59 mouth [place] 00 :00 daily for Medical 30 days. Branch clopidogreL 2021- Yes [id number] 75mg Take 1 Univers 75 mg 05-23 tablet by ity of tablet 00:00: 04:59 mouth [place] 00 :00 daily for Medical 30 days. Branch isosorbide 2021- Yes [id number] 30mg Take 1 Univers mononitrate 05-23 tablet by it y of 30 mg 24 hr 00:00: 04:59 [place] tablet 00 :00 daily for Medical 30 days. Branch lisinopriL 2021- Yes [id number] 5mg Take 1 Univers 5 mg tablet 05-23 tablet by it y of 00:00: 04:59 mouth [place] 00 :00 daily for Medical 30 days. Branch vitamin b 2021- Yes [id number] 1{tbl} Take 1 Univers complex-vit 05-23 tablet by it y of miller 00:00: 04:59 mouth [place] c-folic 00 :00 daily for Medical acid 0.8 mg 30 days. Bran ch tablet aspirin 81 2021- Yes [id number] 81mg Take 1 Univers mg chewable 05-23 tablet by it y of tablet 00:00: 04:59 mouth [place] 00 :00 daily for Medical 30 days. Branch clopidogreL 2021- Yes [id number] 75mg Take 1 Univers 75 mg 05-23 tablet by ity of tablet 00:00: 04:59 mouth [place] 00 :00 daily for Medical 30 days. Branch isosorbide 2021- Yes [id number] 30mg Take 1 Univers mononitrate 05-23 tablet by it y of 30 mg 24 hr 00:00: 04:59 [place] tablet 00 :00 daily for Medical 30 days. Branch lisinopriL 2021- Yes [id number] 5mg Take 1 Univers 5 mg tablet 05-23 tablet by it y of 00:00: 04:59 mouth [place] 00 :00 daily for Medical 30 days. Branch vitamin b 2021- Yes [id number] 1{tbl} Take 1 Univers complex-vit -06-23 tablet by it y of miller 00:00: 04:59 mouth [place] c-folic 00 :00 daily for Medical acid 0.8 mg 30 days. Bran ch tablet hydralazine Yes Take by Un kecia HCl 2-18 mouth. ity of (HYDRALAZIN 21:15: [place] E ORAL) 58 Medical Branch sucroferric 0 Yes Take by Un kecia oxyhydroxid 2-18 mouth. ity of e (VELPHORO 21:15: [place] ORAL) 58 Medical Branch hydralazine 0 Yes Take by Un kecia HCl 2-18 mouth. ity of (HYDRALAZIN 21:15: [place] E ORAL) 58 Medical Branch sucroferric Yes Take by Un kecia oxyhydroxid 2-18 mouth. ity of e (VELPHORO 21:15: [place] ORAL) 58 Medical Branch hydralazine Yes Take by Un kecia HCl 2-18 mouth. ity of (HYDRALAZIN 21:15: [place] E ORAL) 58 Medical Branch sucroferric Yes Take by Un kecia oxyhydroxid 2-18 mouth. ity of e (VELPHORO 21:15: [place] ORAL) 58 Medical Branch NIFEDIPINE 0 2021- No Take by Un kecia ORAL 2-18 02-18 mouth. ity of 17:12: 00:00 [place] 42 :00 Medical Branch aspirin 81 2021-0 2021- No 81mg Take 81 mg Univers mg chewable -18 18 by mouth ity of tablet 17:12: 00:00 daily. [place] 42 :00 Medical Branch nitroglycer [id number] 1 Univers in 0.4 mg 2-18 tablet ity of sublingual 00:00: [place] the [place] tablet 00 tongue Medical every 5 Branch (five) minutes as needed for Chest pain. nitroglycer [id number] 1 Univers in 0.4 mg 2-18 tablet ity of sublingual 00:00: [place] the [place] tablet 00 tongue Medical every 5 Branch (five) minutes as needed for Chest pain. nitroglycer Yes [id number] .4mg Place 1 Univers in 0.4 mg 2-18 tablet ity of sublingual 00:00: under the [place] tablet 00 [facility] every 5 Branch (five) minutes as needed for Chest pain. atorvastati 2021- Yes [id number] 40mg Take 1 Univers n 40 mg 2-18 -21 tablet by ity of tablet 00:00: 04:59 mouth at [place] 00 :00 bedtime Medical for 30 Branch days. carvediloL 2021- Yes [id number] 6.25mg Take 1 Univers 6.25 mg 2-18 -21 tablet by ity of tablet 00:00: 04:59 mouth 2 [place] 00 :00 (two) Medical times Branch daily with meals for 30 days. NIFEdipine 2021- Yes [id number] 60mg Take 1 Univers ER 60 mg 2-18 -21 tablet by ity o f tablet 00:00: 04:59 mouth 2 [place] 00 :00 (two) Medical times Branch daily for 30 days. atorvastati 2021- Yes [id number] 40mg Take 1 Univers n 40 mg 2-18 -21 tablet by ity of tablet 00:00: 04:59 mouth at [place] 00 :00 bedtime Medical for 30 Branch days. carvediloL 2021- Yes [id number] 6.25mg Take 1 Univers 6.25 mg 2-18 -21 tablet by ity of tablet 00:00: 04:59 mouth 2 [place] 00 :00 (two) Medical times Branch daily with meals for 30 days. NIFEdipine 2021- Yes [id number] 60mg Take 1 Univers ER 60 mg 2-18 -21 tablet by ity o f tablet 00:00: 04:59 mouth 2 [place] 00 :00 (two) Medical times Branch daily for 30 days. atorvastati 2021- Yes [id number] 40mg Take 1 Univers n 40 mg 2-18 -21 tablet by ity of tablet 00:00: 04:59 mouth at [place] 00 :00 bedtime Medical for 30 Branch days. carvediloL 2021- Yes [id number] 6.25mg Take 1 Univers 6.25 mg 2-18 03-21 tablet by ity of tablet 00:00: 04:59 mouth 2 [place] 00 :00 (two) Medical times Branch daily with meals for 30 days. NIFEdipine 2021- Yes [id number] 60mg Take 1 Univers ER 60 mg 05-22 tablet by ity o f tablet 00:00: 04:59 mouth 2 [place] 00 :00 (two) Medical times Branch daily for 30 days. clopidogreL Yes 75mg 75 mg, Univ ers (PLAVIX) 05-21 Oral, ity of tablet 75 15:00: DAILY, [place] mg 00 First dose Medical (after Branch last modificati on) on Astrid 05/21/21 at 0900, Until Discontinu ed, Routine morpHINE 2021- No 2mg 2 mg, Slow Un kecia injection 2 05-21 IV Push, ity of mg 13:30: 12:29 ONCE, 1 [place] 00 :00 dose, On Medical [facility] Branch 05/21/21 at 0730, Routine HYDROcodone No 1{tbl} 1 tablet, Univers -acetaminop 05-21 Oral, ity of hen (NORCO 01:00: 00:17 ONCE, 1 [place] as 5) 5-325 mg 00 :00 dose, On Medi yoel tablet 1 Tue [place] tablet 05/20/21 at 1900, Routine isosorbide Yes 30mg 30 mg, Unive rs mononitrate 16 Oral, ity of (IMDUR) 24 15:00: DAILY, [place] hr tablet 00 First dose Medi yoel 30 mg on Tue Branch 05/20/21 at 0900, Until Discontinu ed, Routine vitamin b Yes [id number] 1{tbl} 1 tablet, Univers complex-vit -16 Oral, ity of miller 15:00: DAILY, [place] c-folic 00 First dose Medica l acid on Tue Branch (NEPHRO-VIT 05/20/21 at E) 0.8 mg 0900, tablet 1 Until tablet Discontinu ed, Routine clopidogreL 2021- No 75mg 75 mg, Uni vers (PLAVIX) 05-20 Oral, ity of tablet 75 15:00: 15:04 DAILY, [place] mg 00 :38 First dose Medical on [facility] Branch 05/20/21 at 0900, Until Discontinu ed, Routine atorvastati 0 Yes [id number] 40mg 40 mg, Univers n (LIPITOR) 2-16 Oral, QHS, it y of tablet 40 03:00: First dose [place] mg 00 on Medical 05/19/21 at Branch 2100, Until Discontinu ed, Routine NIFEdipine 0 Yes [id number] 60mg 60 mg, U nivers ER tablet 2-16 Oral, BID, ity of 60 mg 02:00: First dose [place] 00 (after Medical last Branch modificati on) on 05/19/21 at 2000, Until Discontinu ed, Routine lisinopriL 0 Yes [id number] 5mg 5 mg, Un kecia (PRINIVIL,Z 2-15 Oral, ity of ESTRIL) 20:45: DAILY, [place] tablet 5 mg 00 First dose Me dical on Tue [place] 05/19/21 at 1445, Until Discontinu ed, Routine traMADoL Yes 50mg 50 mg, Univers (ULTRAM) 2-12 Oral, ity of tablet 50 21:59: Q6HPRN, [place] mg 37 Starting Medical on [facility] Branch 05/16/21 at 1559, Until Discontinu ed, Routine, Pain (scale 4-6) aspirin Yes 81mg 81 mg, Univers chewable 2-12 Oral, ity of tablet 81 15:00: DAILY, [place] mg 00 First dose Medical on [facility] Branch 05/16/21 at 0900, Until Discontinu ed, Routine NIFEdipine No 60mg 60 mg, Univ ers ER tablet 12 02-15 Oral, ity of 60 mg 15:00: 20:33 DAILY, [place] 00 :49 First dose Medical on [facility] Branch 05/16/21 at 0900, Until Discontinu ed, Routine Sliding 0 Yes Subcutaneo Univ ers Scale 2-12 us, AC, ity of Insulin-Reg 13:30: First dose [place] ular + Fsbg 00 on [facility] Medica l Testing 05/16/21 at Branch 0730, Until Discontinu ed, Routine hydralAZINE 0 Yes 10mg 10 mg, Univ ers (APRESOLINE 2-12 Slow IV ity o f ) injection 05:36: Push, [place] 10 mg 44 Q4HPRN, Medical Starting Branch on Tue05/15/21 at 2336, Until Discontinu ed, Routine, DBP=>10 0; SBP=>160, DBP=>100; SBP=>180<b r>Indicati on: Hypertensi ve Emergency glucagon 2021-0 Yes 1mg 1 mg, Univers (GLUCAGEN 2-12 Intramuscu ity of DIAGNOSTIC 05:30: [place], PRN, [place] KIT) 08 Starting Medical injection 1 on Fri Branch mg 05/15/21 at 2330, Until Discontinu ed, MATTHEW, Blood Glucose < or = 70 mg/dL and patient is unable to swallow or has mental changes. dextrose 50 2021-0 Yes 25mL 25 mL, Univ ers % in water 2-12 Slow IV ity of (D50W) 05:30: Push, PRN, [place] injection 08 Starting Medica l 25 mL on Tue Branch 05/15/21 at 2330, Until Discontinu ed, MATTHEW, Blood Glucose < or = 70 mg/dL and patient is unable to swallow or has mental status changes. heparin 0 Yes 5000U 5,000 Univers (porcine) 2-12 Units, ity of injection 04:00: Subcutaneo [place] 5,000 Units 00 us, Q8H, [facility] First dose Branch on Tue05/15/21 at 2200, Until Discontinu ed, Routine carvediloL 0 Yes 6.25mg 6.25 mg, U nivers (COREG) 2-12 Oral, BID ity of tablet 6.25 01:00: MEALS, [place] mg 00 First dose Medical on Tue Branch 05/15/21 at 1900, Until Discontinu ed, Routine
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 : HERIBERTO THOMAS aspirin 2021-0 202- No 325mg 325 mg, Unive rs tablet 325 2-12 02-12 Oral, ity of mg 01:00: 01:57 ONCE, 1 [place] 00 :00 dose, On Medical Fri Branch 05/15/21 at 1900, Routine nitroglycer 2021-0 Yes .4mg 0.4 mg, Uni vers in 2-12 Sublingual ity of (NITROSTAT) 00:57: , Q5MIN [place] as sublingual 18 PRN, Medical tablet 0.4 Starting Branc h mg on 05/15/21 at 1857, Until Discontinu ed, Routine, Chest pain ondansetron 2021-0 Yes 4mg 4 mg, Slow Univers (ZOFRAN 212 IV Push, ity of (PF)) 00:56: Q6HPRN, [place] injection 4 53 Starting Medi yoel mg on Fri Branch 05/15/21 at 1856, Until Discontinu ed, Routine, Nausea and Vomiting (N/V) acetaminoph 0 Yes 650mg 650 mg, Un kecia en -12 Oral, ity of (TYLENOL) 00:56: Q6HPRN, [place] tablet 650 38 Starting Medic al mg on Fri Branch 05/15/21 at 1856, Until Discontinu ed, Routine, Pain (scale 1-3), Temp > 38.5 C ondansetron 2021-0 2021- No 4mg 4 mg, Slow Univers (ZOFRAN 05-15 IV Push, ity of (PF)) 23:30: 22:34 ONCE, 1 [place] injection 4 00 :00 dose, On Medi yoel mg Fri Branch 05/15/21 at 1730, MATTHEW morpHINE 2021-0 2021- No 4mg 4 mg, Slow Un kecia injection 4 05-15 IV Push, ity of mg 23:30: 22:34 ONCE, 1 [place] 00 :00 dose, On Medical Fri Branch 05/15/21 at 1730, STAT iopamidol 0 2022- No [id number] 100mL 100 mL, Univers (ISOVUE 05-15 Intravenou ity o f 370-500 mL) 22:00: 22:00 s, ONCE, 1 [place] injection 00 :00 dose, On Medica l 100 mL Fri Branch 05/15/21 at 1600, Routine hydrALAZINE 0 Yes 100mg Take 100 U nivers 100 mg 2-11 mg by ity of tablet 11:29: mouth [place] 28 every 8 Medical (eight) Branch hours. METOPROLOL 2021-0 Yes Univers TARTRATE, -11 ity of BULK, MISC 11:29: [place] 28 Medical Branch losartan 50 2021-0 Yes 100mg Take 100 U nivers mg tablet 2-11 mg by ity of 11:29: mouth [place] 28 daily. Medical Branch CARVEDILOL 2021-0 Yes Take by Uni vers ORAL 2-11 mouth. ity of 11:29: [place] [address] Medical Branch NIFEdipine 2021-0 Yes 60mg Take 60 mg U nivers ER 60 mg 2-11 by mouth ity of tablet 11:29: daily. [place] [address] Medical Branch hydrALAZINE 2021-0 Yes 100mg Take 100 U nivers 100 mg 2-11 mg by ity of tablet 11:29: mouth [place] 28 every 8 Medical (eight) Branch hours. METOPROLOL 2021-0 Yes Univers TARTRATE, 2-11 ity of BULK, MISC 11:29: [place] [address] Medical [place] losartan 50 2021-0 Yes 100mg Take 100 U nivers mg tablet 2-11 mg by ity of 11:29: mouth [place] [address] daily. Medical Branch CARVEDILOL 0 Yes Take by Uni vers ORAL 2-11 mouth. ity of 11:29: [place] [address] Medical Branch NIFEdipine 2021-0 Yes 60mg Take 60 mg U nivers ER 60 mg 2-11 by mouth ity of tablet 11:29: daily. [place] [address] Medical Branch hydrALAZINE 0 Yes 100mg Take 100 U nivers 100 mg 2-11 mg by ity of tablet 11:29: mouth [place] [address] every 8 Medical (eight) Branch hours. METOPROLOL 2021-0 Yes Univers TARTRATE, 2-11 ity of BULK, MISC 11:29: [address] losartan 50 2021-0 Yes 100mg Take 100 U nivers mg tablet 2-11 mg by ity of 11:29: mouth [place] 28 daily. Medical Branch CARVEDILOL 0 Yes Take by Uni vers ORAL 2-11 mouth. ity of 11:29: [place] [address] Medical Branch NIFEdipine 2021-0 Yes 60mg Take 60 mg U nivers ER 60 mg 2-11 by mouth ity of tablet 11:29: daily. [address] Branch hydrALAZINE 2021-0 Yes 100mg Take 100 U nivers 100 mg 2-11 mg by ity of tablet 11:29: mouth [place] [address] every 8 Medical (eight) Branch hours. METOPROLOL 2021-0 Yes Univers TARTRATE, 2-11 ity of BULK, MISC 11:29: [place] [address] Medical Branch losartan 50 0 Yes 100mg Take 100 U nivers mg tablet 2-11 mg by ity of 11:29: mouth [place] 28 daily. Medical Branch CARVEDILOL 0 Yes Take by Uni vers ORAL 2-11 mouth. ity of 11:29: [address] Branch NIFEdipine 0 Yes 60mg Take 60 mg U nivers ER 60 mg 2-11 by mouth ity of tablet 11:29: daily. [address] Branch hydrALAZINE 0 Yes 100mg Take 100 U nivers 100 mg 2-11 mg by ity of tablet 11:29: mouth [place] [address] every 8 Medical (eight) Branch hours. METOPROLOL 2021-0 Yes Univers TARTRATE, 2-11 ity of BULK, [facility] 11:29: [address] losartan 50 0 Yes 100mg Take 100 U nivers mg tablet 2-11 mg by ity of 11:29: mouth [place] [address] daily. Medical Branch CARVEDILOL 0 Yes Take by Uni vers ORAL 2-11 mouth. ity of 11:29: [address] Branch NIFEdipine 0 Yes 60mg Take 60 mg U nivers ER 60 mg 2-11 by mouth ity of tablet 11:29: daily. [address] hydrALAZINE 0 Yes 100mg Take 100 U nivers 100 mg 2-11 mg by ity of tablet 11:29: mouth [place] [address] every 8 Medical (eight) Branch hours. METOPROLOL 0 Yes Univers TARTRATE, 2-11 ity of BULK, [facility] 11:29: [address] losartan 50 0 Yes 100mg Take 100 U nivers mg tablet 2-11 mg by ity of 11:29: mouth [place] daily. [facility] CARVEDILOL 0 Yes Take by Uni vers ORAL 2-11 mouth. ity of 11:29: [address] Branch NIFEdipine 0 Yes 60mg Take 60 mg U nivers ER 60 mg 2-11 by mouth ity of tablet 11:29: daily. [address] aspirin 81 2020-0 Yes 81mg QD Take [address] MG EC 5-27 by mouth [facility] 15:07: daily. [address] carvediloL Yes 12.5mg Take 12.[address] (COREG) 5-27 mg by [facility] - 12.5 MG 15:07: mouth 2 Medical tablet 20 (two) Center times daily with breakfast and dinner. aspirin 81 2020-0 Yes 81mg QD Take [address] MG EC 5-27 by mouth [facility] tablet 15:07: daily. [address] carvediloL 0 Yes 12.5mg Take 12.[address] (COREG) 5-27 mg by [facility] - 12.5 MG 15:07: mouth 2 Medical tablet 20 (two) Center times daily with breakfast and dinner. doxazosin 4 0 Yes 4mg Take 4 mg U nivers mg tablet 1-13 by mouth 2 ity of 13:19: (two) [place] [address] times Medical daily. Branch sevelamer Yes 4{tbl} Take 4 Univ ers carbonate 1-13 tablets by ity of (RENVELA 13:19: mouth 3 [place] ORAL) 55 (three) Medical times [place] daily. atorvastati Yes 40mg Take 40 mg Univers n 40 mg 1-13 by mouth ity of tablet 13:19: at [place] [address] bedtime. Medical Branch metOLazone 0 Yes 5mg Take 5 mg Un kecia 5 mg tablet 1-13 by mouth ity of 13:19: daily. [place] [address] Medical Branch furosemide 2020-0 Yes 80mg Take 80 mg U nivers 80 mg 1-13 by mouth ity of tablet 13:19: every [place] [address] morning Medical and Branch evening. metoclopram 0 Yes 5mg Take 5 mg U nivers ginny HCl 5 1-13 by mouth ity of mg tablet 13:19: before [place] [address] meals and Medical at Branch bedtime. doxazosin 4 0 Yes 4mg Take 4 mg U nivers mg tablet 1-13 by mouth 2 ity of 13:19: (two) [place] [address] times Medical daily. Branch sevelamer 2020-0 Yes 4{tbl} Take 4 Univ ers carbonate 1-13 tablets by ity of (RENVELA 13:19: mouth 3 [place] ORAL) 55 (three) Medical times [place] daily. atorvastati 0 Yes 40mg Take 40 mg Univers n 40 mg 1-13 by mouth ity of tablet 13:19: at [place] [address] bedtime. Medical Branch metOLazone 0 Yes 5mg Take 5 mg Un kecia 5 mg tablet 1-13 by mouth ity of 13:19: daily. [place] [address] Medical Branch furosemide 2020-0 Yes 80mg Take 80 mg U nivers 80 mg 1-13 by mouth ity of tablet 13:19: every [place] [address] morning Medical and Branch evening. metoclopram 0 Yes 5mg Take 5 mg U nivers ginny HCl 5 1-13 by mouth ity of mg tablet 13:19: before [place] [address] meals and Medical at Branch bedtime. doxazosin 4 2020-0 Yes 4mg Take 4 mg U nivers mg tablet 1-13 by mouth 2 ity of 13:19: (two) [place] [address] times Medical daily. Branch sevelamer 0 Yes 4{tbl} Take 4 Univ ers carbonate 1-13 tablets by ity of (RENVELA 13:19: mouth 3 [place] ORAL) 55 (three) Medical times Branch daily. atorvastati 0 Yes 40mg Take 40 mg Univers n 40 mg 1-13 by mouth ity of tablet 13:19: at [place] [address] bedtime. Medical Branch metOLazone 0 Yes 5mg Take 5 mg Un kecia 5 mg tablet 1-13 by mouth ity of 13:19: daily. [place] [address] Medical Branch furosemide 0 Yes 80mg Take 80 mg U nivers 80 mg 1-13 by mouth ity of tablet 13:19: every [place] [address] morning Medical and Branch evening. metoclopram 0 Yes 5mg Take 5 mg U nivers ginny HCl 5 1-13 by mouth ity of mg tablet 13:19: before [place] [address] meals and Medical at Branch bedtime. doxazosin 4 2020-0 Yes 4mg Take 4 mg U nivers mg tablet 1-13 by mouth 2 ity of 13:19: (two) [place] [address] times Medical daily. Branch sevelamer 2020-0 Yes 4{tbl} Take 4 Univ ers carbonate 1-13 tablets by ity of ([place] 13:19: mouth 3 [place] ORAL) 55 (three) Medical times Branch daily. atorvastati 2020-0 Yes 40mg Take 40 mg Univers n 40 mg 1-13 by mouth ity of tablet 13:19: at [place] [address] bedtime. Medical Branch metOLazone 0 Yes 5mg Take 5 mg Un kecia 5 mg tablet 1-13 by mouth ity of 13:19: daily. [place] [address] Medical Branch furosemide 2020-0 Yes 80mg Take 80 mg U nivers 80 mg 1-13 by mouth ity of tablet 13:19: every [place] [address] morning Medical and Branch evening. metoclopram 0 Yes 5mg Take 5 mg U nivers ginny HCl 5 1-13 by mouth ity of mg tablet 13:19: before [place] [address] meals and Medical at Branch bedtime. doxazosin 4 2020-0 Yes 4mg Take 4 mg U nivers mg tablet 1-13 by mouth 2 ity of 13:19: (two) [place] [address] times Medical daily. Branch sevelamer 0 Yes 4{tbl} Take 4 Univ ers carbonate 1-13 tablets by ity of ([place] 13:19: mouth 3 [place] ORAL) 55 (three) Medical times [place] daily. atorvastati 0 Yes 40mg Take 40 mg Univers n 40 mg 1-13 by mouth ity of tablet 13:19: at [place] [address] bedtime. Medical Branch metOLazone 0 Yes 5mg Take 5 mg Un kecia 5 mg tablet 1-13 by mouth ity of 13:19: daily. [place] [address] Medical Branch furosemide 0 Yes 80mg Take 80 mg U nivers 80 mg 1-13 by mouth ity of tablet 13:19: every [place] [address] morning Medical and Branch evening. metoclopram 0 Yes 5mg Take 5 mg U nivers ginny HCl 5 1-13 by mouth ity of mg tablet 13:19: before [place] [address] meals and Medical at Branch bedtime. doxazosin 4 2020-0 Yes 4mg Take 4 mg U nivers mg tablet 1-13 by mouth 2 ity of 13:19: (two) [place] times Medical daily. Branch sevelamer 2020-0 Yes 4{tbl} Take 4 Univ ers carbonate 1-13 tablets by ity of ([place] 13:19: mouth 3 [place] ORAL) 55 (three) Medical times Branch daily. atorvastati 2020-0 Yes 40mg Take 40 mg Univers n 40 mg 1-13 by mouth ity of tablet 13:19: at [place] [address] bedtime. [facility] Branch metOLazone Yes 5mg Take 5 mg Un kecia 5 mg tablet 1-13 by mouth ity of 13:19: daily. [place] [address] Medical Branch furosemide Yes 80mg Take 80 mg U nivers 80 mg 1-13 by mouth ity of tablet 13:19: every [place] [address] morning Medical and Branch evening. metoclopram Yes 5mg Take 5 mg U nivers ginny HCl 5 1-13 by mouth ity of mg tablet 13:19: before [place] [address] meals and Medical at Branch bedtime. aspirin 81 Yes 81mg Take 81 mg U nivers mg chewable 9-11 by mouth ity of tablet 09:14: daily. [address] insulin Yes 12U inject 12 Unive rs glargine,hu 9-11 Units ity of m.rec.anlog 09:14: [place] 52 skin at Medical U-100 bedtime. Branch INSULIN SC) NOVOLOG Yes 12U inject 12 Unive rs U-100 9-11 Units ity of INSULIN 09:14: under the [place] ASPART SC 52 skin 3 Medical (three) Branch times daily before meals. aspirin 81 Yes 81mg Take 81 mg U nivers mg chewable 9-11 by mouth ity of tablet 09:14: daily. [address] insulin Yes 12U inject 12 Unive rs glargine,hu 9-11 Units ity of m.rec.anlog 09:14: [place] ([place]ANT[place] 52 skin at Medical U-100 bedtime. Branch INSULIN SC) NOVOLOG Yes 12U inject 12 Unive rs U-100 9-11 Units ity of INSULIN 09:14: under the [place] ASPART SC 52 skin 3 Medical (three) Branch times daily before meals. aspirin 81 Yes 81mg Take 81 mg U nivers mg chewable 9-11 by mouth ity of tablet 09:14: daily. [address] insulin Yes 12U inject 12 Unive rs glargine,hu 9-11 Units ity of m.rec.anlog 09:14: [place] ([place] 52 skin at Medical U-100 bedtime. Branch INSULIN SC) NOVOLOG 2019-0 Yes 12U inject 12 Unive rs U-100 9-11 Units ity of INSULIN 09:14: under the [place] ASPART SC 52 skin 3 Medical (three) Branch times daily before meals. aspirin 81 2019-0 Yes 81mg Take 81 mg U nivers mg chewable 9-11 by mouth ity of tablet 09:14: daily. [address] insulin 2019-0 Yes 12U inject 12 Unive rs glargine,hu 9-11 Units ity of m.rec.anlog 09:14: [place] ([place] 52 skin at Medical U-100 bedtime. Branch INSULIN SC) NOVOLOG 2019-0 Yes 12U inject 12 Unive rs U-100 9-11 Units ity of INSULIN 09:14: under the [place] ASPART SC 52 skin 3 Medical (three) Branch times daily before meals. aspirin 81 2019- Yes 81mg Take 81 mg U nivers mg chewable 9-11 by mouth ity of tablet 09:14: daily. [address] insulin 2018-0 Yes 12U inject 12 Unive rs glargine,hu 9-11 Units ity of m.rec.anlog 09:14: [place] ([place] 52 skin at Medical U-100 bedtime. Branch INSULIN SC) NOVOLOG 0 Yes 12U inject 12 Unive rs U-100 9-11 Units ity of INSULIN 09:14: under the [place] ASPART SC 52 skin 3 Medical (three) Branch times daily before meals. aspirin 81 2019-0 Yes 81mg Take 81 mg U nivers mg chewable 9-11 by mouth ity of tablet 09:14: daily. [address] insulin 2018-0 Yes 12U inject 12 Unive rs glargine,hu 9-11 Units ity of m.rec.anlog 09:14: [place] ([place] 52 skin at Medical U-100 bedtime. Branch INSULIN SC) NOVOLOG 2019-0 Yes 12U inject 12 Unive rs U-100 9-11 Units ity of INSULIN 09:14: under the [place] ASPART SC 52 skin 3 Medical (three) Branch times daily before meals. doxazosin 2019-0 Yes 4mg Q.5D Take 4 mg Met hodi (CARDURA) 4 7-[address] MG tablet 15:19: (two) Hospita 42 times a l day. atorvastati 2018-0 Yes 40mg QD Take 40 mg Methodi n (LIPITOR) 7-[address] 40 MG 15:19: daily. Hospita tablet 42 l pantoprazol 20190 Yes 40mg QD Take 40 mg Methodi e 7-[address] (PROTONIX) 15:19: daily. Hospi ta 40 MG EC 42 l tablet isosorbide Yes 30mg QD Take 30 mg M ethodi mononitrate 7-[address] (IMDUR) 30 15:19: daily. Hospi ta MG 24 hr 42 l tablet ergocalcife 0 Yes [id number] Q7D Take Meth ale rol 7-[address] 50,[address] (VITAMIN 15:19: Units by Hospi ta D2) 50,000 42 mouth once l unit a week. capsule multivitami Yes 1{tbl} QD Take 1 Me thodi n 7-[address] (DAILY-LARON 15:19: mouth Hospi ta ORAL) 42 daily. l metOLazone 2019-0 Yes TK 1 T PO Me thodi (ZAROXOLYN) 7-[address] 5 MG tablet 00:00: Hospit a 00 l metoprolol 2018-0 Yes TK 1 T PO Me thodi tartrate 7-[address] (LOPRESSOR) 00:00: Hospit a 25 mg 00 l tablet aspirin 2018-0 Yes Methodi (ECOTRIN) 7-10 st 81 MG 00:00: Hospita enteric 00 l coated tablet furosemide 2018- Yes Take by Meth ale (LASIX) 40 7-[address] mg tablet 00:00: Hospita 00 l hydrALAZINE 2018-0 Yes 1{tbl} Take 1 Me th[facility] (APRESOLINE 7-[address] ) 100 MG 00:00: mouth. Hospita tablet 00 l lactulose 2018-0 Yes Take by Metho di (CEPHULAC) 7-[address] 10 gram 00:00: Hospita packet 00 l lanthanum 2018-0 Yes Take by Metho di 1,000 mg 7-[address] powder in 00:00: Hospita packet 00 l NIFEdipine 2018-0 Yes 1{tbl} Take 1 Met hodi XL 7-[address] (PROCARDIA 00:00: mouth. Hospi ta XL) 60 MG 00 l 24 hr tablet Immunizations Ordered Filled Immunization Date Status Comments [facility] e Immunization Name Name Influenza High Dose 2021-02-02 Completed Unive rsity of 00:00:00 [facility] Influenza High Dose 2021-02-02 Completed Unive rsity of 00:00:00 [facility] Influenza High Dose 2021-02-02 Completed Unive rsity of 00:00:00 [facility] Influenza High Dose 2021-02-02 Completed Unive rsity of 00:00:00 [facility] Influenza High Dose 2021-02-02 Completed Unive rsity of 00:00:00 [facility] Influenza High Dose 2021-02-02 Completed Unive rsity of 00:00:00 [facility] SARS-COV-2 COVID-19 2020-07-30 Completed Unive rsity of PFIZER VACCINE 00:00:00 [facility] SARS-COV-2 COVID-19 2020-07-30 Completed Unive rsity of PFIZER VACCINE 00:00:00 [facility] SARS-COV-2 COVID-19 2020-07-30 Completed Unive rsity of PFIZER VACCINE 00:00:00 [facility] SARS-COV-2 COVID-19 2020-07-30 Completed Unive rsity of PFIZER VACCINE 00:00:00 [facility] SARS-COV-2 COVID-19 2020-07-30 Completed Unive rsity of PFIZER VACCINE 00:00:00 [facility] SARS-COV-2 COVID-19 2020-07-30 Completed Unive rsity of PFIZER VACCINE 00:00:00 [facility] SARS-COV-2 COVID-19 2020-07-11 Completed Unive rsity of PFIZER VACCINE 00:00:00 [facility] SARS-COV-2 COVID-19 2020-07-11 Completed Unive rsity of PFIZER VACCINE 00:00:00 [facility] SARS-COV-2 COVID-19 2020-07-11 Completed Unive rsity of PFIZER VACCINE 00:00:00 [facility] SARS-COV-2 COVID-19 2020-07-11 Completed Unive rsity of PFIZER VACCINE 00:00:00 [facility] SARS-COV-2 COVID-19 2020-07-11 Completed Unive rsity of PFIZER VACCINE 00:00:00 [facility] SARS-COV-2 COVID-19 2020-07-11 Completed Unive rsity of PFIZER VACCINE 00:00:00 [facility] PPD (TB) 2018-03-20 Completed University of 00:00:00 [facility] PPD (TB) 2018-03-20 Completed University of 00:00:00 [facility] PPD (TB) 2018-03-20 Completed University of 00:00:00 [facility] PPD (TB) 2018-03-20 Completed University of 00:00:00 [facility] PPD (TB) 2018-03-20 Completed University of 00:00:00 [facility] PPD (TB) 2018-03-20 Completed University of 00:00:00 [facility] Influenza Virus 2018-01-20 Completed Universit y of Vaccine - Whole 00:00:00 [facility] Influenza Virus 2018-01-20 Completed Universit y of Vaccine - Whole 00:00:00 [facility] Influenza Virus 2018-01-20 Completed Universit y of Vaccine - Whole 00:00:00 [facility] Influenza Virus 2018-01-20 Completed Universit y of Vaccine - Whole 00:00:00 [facility] Influenza Virus 2018-01-20 Completed Universit y of Vaccine - Whole 00:00:00 [facility] Influenza Virus 2018-01-20 Completed Universit y of Vaccine - Whole 00:00:00 [facility] Pneumococcal 2014-08-02 Completed University o f Polysaccharide, 00:00:00 [facility] ical PPSV23 (PNEUMOVAX) Branch Pneumococcal 2014-08-02 Completed University o f Polysaccharide, 00:00:00 [facility] ical PPSV23 (PNEUMOVAX) Branch Pneumococcal 2014-08-02 Completed University o f Polysaccharide, 00:00:00 [facility] ical PPSV23 (PNEUMOVAX) Branch Pneumococcal 2014-08-02 Completed University o f Polysaccharide, 00:00:00 [facility] ical PPSV23 (PNEUMOVAX) Branch Pneumococcal 2014-08-02 Completed University o f Polysaccharide, 00:00:00 [facility] ical PPSV23 (PNEUMOVAX) Branch Pneumococcal 2014-08-02 Completed University o f Polysaccharide, 00:00:00 [place] [facility] ical PPSV23 (PNEUMOVAX) Branch Vital Signs Vital Name Observation Time Observation Value Comments Source Systolic blood 2021-05-23 01:40:00 126 mm[Hg] Univer sity of pressure [place] [facility] [place] Diastolic blood 2021-05-23 01:40:00 46 mm[Hg] Unive rsity of [facility] Heart rate 2021-05-23 01:40:00 62 /min Universi ty of [place] [facility] [place] Body temperature 2021-05-23 01:40:00 35.67 Priya [address]ity of [facility] Branch Respiratory rate 2021-05-23 01:40:00 16 /min Univ ersity of [facility] Body weight 2021-05-23 01:40:00 67.3 kg Universi ty of [place] [facility] [place] BMI 2021-05-23 01:40:00 26.28 kg/m2 Universi ty of [facility] Oxygen saturation in 2021-05-22 17:16:00 93 /min University of Arterial blood by [place] 21GRAMS Pulse oximetry Branch Body height 2021-05-19 19:34:00 160 cm Universi ty of [place] [facility] Systolic blood 2021-05-15 17:30:00 149 mm[Hg] Univer sity of pressure [facility] Diastolic blood 2021-05-15 17:30:00 60 mm[Hg] Unive rsity of pressure [facility] Heart rate 2021-05-15 17:29:00 70 /min Universi ty of [place] [facility] [place] Body height 2021-05-15 17:29:00 160 cm Universi ty of [place] [facility] Body weight 2021-05-15 17:29:00 70.171 kg Universi ty of [place] [facility] BMI 2021-05-15 17:29:00 27.40 kg/m2 Universi ty of [place] [facility] Oxygen saturation in 2021-05-15 17:29:00 93 /min University of Arterial blood by [employer] Pulse oximetry Branch Body height 2020-07-24 16:34:[address] [facility] [place] Body weight 2020-07-24 16:34:[address] [facility] BMI 2020-07-24 16:34:00 26.17 kg/m2 [facility] [place] Procedures Procedure Date / Time Performing Clinician Source Performed POCT GLUCOSE (AUTOMATED) 2021-05-22 23:19:00 Heriberto [facility] POCT GLUCOSE (AUTOMATED) 2021-05-22 17:36:00 Heriberto Thomas [facility] POCT GLUCOSE (AUTOMATED) 2021-05-22 13:43:00 Heriberto [facility] BASIC METABOLIC PANEL 2021-05-22 09:37:00 José Miguel Horn [facility] (NA, K, CL, CO2, GLUCOSE, Medica l Branch BUN, CREATININE, CA) CBC WITH DIFF 2021-05-22 09:37:00 José Miguel Horn [facility] GLUCOSE 2021-05-21 23:41:00 Ricki [facility] PROTEIN TOTAL 2021-05-21 23:41:00 Ricki [facility] LACTATE DEHYDROGENASE 2021-05-21 23:41:00 Candido [facility] TROPONIN I 2021-05-21 23:41:[address] [facility] N-TERMINAL PRO-BNP 2021-05-21 23:41:00 José Miguel Horn [facility] POCT GLUCOSE (AUTOMATED) 2021-05-21 23:14:00 Heriberto [facility] POCT GLUCOSE (AUTOMATED) 2021-05-21 16:58:00 Heriberto [facility] POCT GLUCOSE (AUTOMATED) 2021-05-21 13:47:00 Heriberto [facility] XR CHEST 1 VW 2021-05-21 13:06:23 Gt [facility] VITAMIN B12, LEVEL 2021-05-21 12:51:00 Taina Del Real [facility] FOLATE 2021-05-21 12:51:00 Gt [facility] TROPONIN I 2021-05-21 12:51:00 Gt [facility] IRON PANEL 2021-05-21 12:51:00 tG [facility] VITAMIN D, 25-OH 2021-05-21 12:51:00 Gt [facility] FERRITIN SERUM 2021-05-21 09:32:00 Gt [facility] TROPONIN I 2021-05-21 09:32:00 Gt [facility] HEPATIC FUNCTION PANEL 2021-05-21 09:32:00 Taina Del Real [facility] ([id number]) (ALB,T.PRO,BILI Medical Branch T,BU/BC,ALT,AST,ALK PHOS) BASIC METABOLIC PANEL 2021-05-21 09:32:00 José Miguel Horn [facility] (NA, K, CL, CO2, GLUCOSE, Medica l Branch BUN, CREATININE, CA) DIFF CONSULT 2021-05-21 09:32:00 Gt [facility] CBC WITH DIFF 2021-05-21 09:32:00 Kory [facility] N-TERMINAL PRO-BNP 2021-05-21 09:32:00 Gt [facility] POCT GLUCOSE (AUTOMATED) 2021-05-21 02:22:00 Heriebrto [facility] XR CHEST 1 VW 2021-05-20 22:21:01 Ricki [facility] POCT GLUCOSE (AUTOMATED) 2021-05-20 22:14:00 Heriberto [facility] PH, BODY FLUID 2021-05-20 22:04:00 Candido [facility] T.PROTEIN BODY FLUID 2021-05-20 22:04:00 Candido Robison [facility] BODY FLUID DIRECT COUNT 2021-05-20 22:04:00 Nemesio [facility] CYTO PLEURAL FLUID 2021-05-20 22:04:00 Candido Robison [facility] LDH TOTAL BODY FLUID 2021-05-20 22:04:00 Holly [facility] AFB CULTURE 2021-05-20 21:50:00 Ricki [facility] BODY FLUID 2021-05-20 21:50:00 Ricki [facility] CULTURE(AEROBIC/ANAEROBIC Medica l Branch ) XR CHEST 1 VW 2021-05-20 19:13:56 Ricki [facility] POCT GLUCOSE (AUTOMATED) 2021-05-20 16:59:00 Heriberto Thomas Uni [facility] POCT GLUCOSE (AUTOMATED) 2021-05-20 13:25:00 Heriberto Thomas [facility] LACTATE DEHYDROGENASE 2021-05-20 09:50:00 [facility] BASIC METABOLIC PANEL 2021-05-20 09:50:00 Holly Redding [facility] (NA, K, CL, CO2, GLUCOSE, Medica l Branch BUN, CREATININE, CA) PROTHROMBIN TIME / INR 2021-05-20 09:50:00 [facility] 2021-05-20 09:50:00 Tameka Mcdaniels [facility] POCT GLUCOSE (AUTOMATED) 2021-05-20 01:35:00 Heriberto Thomas Uni [facility] POCT GLUCOSE (AUTOMATED) 2021-05-19 23:08:00 Heriberto Thomas Uni [facility] POCT GLUCOSE (AUTOMATED) 2021-05-19 17:39:00 Heriberto Thomas Uni [facility] POCT GLUCOSE (AUTOMATED) 2021-05-19 14:04:00 Heriberto Thomas [facility] BASIC METABOLIC PANEL 2021-05-19 11:24:00 [facility] (NA, K, CL, CO2, GLUCOSE, Medica l Branch BUN, CREATININE, CA) CBC WITH DIFF 2021-05-19 11:24:00 [facility] N-[facility]MINAL PRO-BNP 2021-05-19 11:24:00 [facility] HEPATITIS B SURFACE 2021-05-19 03:18:00 Samantha [facility] ANTIBODY [facility] J [facility] HEPATITIS B SURFACE 2021-05-19 03:18:00 Samantha [facility] ANTIGEN [facility] POCT GLUCOSE (AUTOMATED) 2021-05-19 03:11:00 Heriberto [facility] POCT GLUCOSE (AUTOMATED) 2021-05-18 22:43:00 Heriberto [facility] POCT GLUCOSE (AUTOMATED) 2021-05-18 17:46:00 Heriberto [facility] POCT GLUCOSE (AUTOMATED) 2021-05-18 17:04:00 Heriberto [facility] BASIC METABOLIC PANEL 2021-05-18 15:05:00 Holly Redding [facility] (NA, K, CL, CO2, GLUCOSE, Medica l Branch BUN, CREATININE, CA) POCT GLUCOSE (AUTOMATED) 2021-05-18 13:20:00 Heriberto [facility] DISCLOSURE AND CONSENT, 2021-05-18 06:01:00 Doctor Unassigned, [facility] MEDICAL AND SURGICAL [place] [facility] PROCEDURES POCT GLUCOSE (AUTOMATED) 2021-05-17 22:51:00 Heriberto [facility] POCT GLUCOSE (AUTOMATED) 2021-05-17 17:51:00 Heriberto [facility] TRANSTHORACIC ECHO (TTE) 2021-05-17 15:04:37 Heriberto Thomas [facility] POCT GLUCOSE (AUTOMATED) 2021-05-17 14:14:00 Heriberto [facility] PHOSPHORUS 2021-05-17 10:03:00 [facility] 2021-05-17 10:03:00 William [facility] BASIC METABOLIC PANEL 2021-05-17 10:03:00 Heriberto Thomas [facility] (NA, K, CL, CO2, GLUCOSE, Medica l Branch BUN, CREATININE, CA) CBC WITHOUT DIFF 2021-05-17 10:03:00 William [facility] N-TERMINAL PRO-BNP 2021-05-17 10:03:00 Heriberto Thomas [facility] POCT GLUCOSE (AUTOMATED) 2021-05-16 22:34:00 [facility] (AUTOMATED) 2021-05-16 17:41:00 William Her[facility] POCT GLUCOSE (AUTOMATED) 2021-05-16 13:39:[address] [facility] MAGNESIUM 2021-05-16 08:09:00 William [facility] TROPONIN I 2021-05-16 08:09:00 William [facility] BASIC METABOLIC PANEL 2021-05-16 08:09:00 William [facility] (NA, K, CL, CO2, GLUCOSE, Medica l Branch BUN, CREATININE, CA) LIPID PANEL ([id number])(TOTAL 2021-05-16 08:09:00 Heriberto Thomas [facility] CHOLESTEROL, [facility] TRIGLYCERIDES, HDL) CBC WITHOUT DIFF 2021-05-16 08:09:00 William [facility] GLYCOSYLATED HEMOGLOBIN 2021-05-16 08:09:00 [facility] (A1C) Medical Branch PHOSPHORUS 2021-05-16 02:06:00 William [facility] TROPONIN I 2021-05-16 02:06:00 William [facility] POCT GLUCOSE (AUTOMATED) 2021-05-16 02:05:[address] [facility] COVID-19 (ID NOW RAPID 2021-05-15 22:31:00 Dangelo Ibrahim [facility] TESTING) Medical Branch LAB ONLY COVID 2021-05-15 22:31:00 Singer Dangelo [facility] INTERPRETATION [facility] XR KNEE <3 VW RIGHT 2021-05-15 22:12:[address] [facility] Medical [place] CHEST PULMONARY 2021-05-15 22:00:00 Singer [facility] ANGIOGRAM Medical Branch XR CHEST 1 VW 2021-05-15 20:32:18 Singer [facility] LIPASE 2021-05-15 19:37:00 Singer [facility] MAGNESIUM 2021-05-15 19:37:00 Singer [facility] TROPONIN I 2021-05-15 19:37:00 Singer [facility] THYROID STIMULATING 2021-05-15 19:37:[address] [facility] HORMONE [facility] Branch COMP. METABOLIC PANEL 2021-05-15 19:37:00 Dangelo Ibrahim [facility] ([id number]) Medical [place] CBC WITH DIFF 2021-05-15 19:37:00 Singer [facility] GLYCOSYLATED HEMOGLOBIN 2021-05-15 19:37:00 William [facility] (A1C) [facility] PROTHROMBIN TIME / INR 2021-05-15 19:37:00 Singer [facility] D-DIMER 2021-05-15 19:37:00 Singer [facility] N-TERMINAL PRO-BNP 2021-05-15 19:37:00 Singer [facility] HB ECG ROUTINE & RHYTHM 2021-05-15 19:13:17 Singer [facility] STRIP [facility] Branch NOTICE OF PRIVACY 2021-05-15 18:55:45 Doctor Rachell [facility] PRACTICES [place] [facility] [place] CONSENT/REFUSAL FOR 2021-05-15 18:55:20 Doctor Rachell [facility] DIAGNOSIS AND TREATMENT [place] [facility] [place] HOSPITAL ADMISSION 2021-05-15 06:01:00 Doctor Lovett [facility] Name Medical [place] Plan of Care Planned Activity Planned Date Details Comments Source Future Scheduled 2021-05-12 COVID-19 VACCINE (1) Met [facility] Test 00:12:28 [code = COVID-19 VACCINE (1)] Future Scheduled 2021-05-12 DIABETES: RETINAL EYE [facility] Test 00:12:28 EXAM [code = DIABETES: RETINAL EYE EXAM] Future Scheduled 2021-05-12 DIABETIC FOOT EXAM [facility] Test 00:12:28 [code = DIABETIC FOOT EXAM] Future Scheduled 2021-05-12 COLONOSCOPY SCREENING [facility] Test 00:12:28 [code = COLONOSCOPY SCREENING] Future Scheduled 2021-05-12 SHINGLES VACCINES Method [facility] Test 00:12:28 (#1) [code = SHINGLES VACCINES (#1)] Future Scheduled 2021-05-12 BREAST CANCER [facility] Test 00:12:28 SCREENING [code = BREAST CANCER SCREENING] Future Scheduled 2021-05-12 Screening for [facility] Test 00:12:28 malignant neoplasm of cervix (procedure) [code = 634428013] Future Scheduled 2021-05-12 INFLUENZA VACCINE [facility] Test 00:12:28 [code = INFLUENZA VACCINE] Encounters Start End Encounter Admission Attending Care Care Encounter Source Date/Time Date/Time Type Type Clinicians Facility Department ID 2018-09-18 Outpatient [facility] [address] [facility] 08:26:04 2021-05-26 2021-05-26 Transition DAKOTA Bennett [id number] Univers 00:00:00 00:00:00 of Care Faviola [place] [id number] [id number] [id number] Branch 2021-05-25 2021-05-25 Transition DAKOTA Bennett [id number] Univers 00:00:00 00:00:00 of Care Faviola [place] [id number] [id number] [id number] [address] Branch 2021-05-15 2021-05-22 [facility] Dangelo Ibrahim [facility] [id number] Univers 13:03:00 21:15:00 Encounter Heriberto Thomas [id number] ity of [place] [place]7.2.[place] [facility] [id number] [facility] [address] 2021-05-15 2021-05-22 Inpatient X WILLIAM [facility] NILESH [id number] Univers 13:03:00 21:15:00 HERIBERTO nuñez [facility] 2021-05-18 2021-05-18 Patient Mendez [facility] [id number] Univers 00:00:00 00:00:00 Outreach Jami LUBIN 350.1.13.10 i ty of [place] 4.2.7.2.686 Socrates as SUAD?BLEA [phone] [address] MEDICAL OFFICE BUILDING 2021-05-18 2021-05-18 Telephone Twin [facility] [id number] Univers 00:00:00 00:00:00 Bertrand Ivy MULTISPEC 350.1.13.10 ity [facility] 4.2.7.2.686 [facility] [phone] [facility] [place] [address] [facility] 2021-05-15 2021-05-15 Office [facility] 1.2.840.114 [id number] Univers 11:00:00 12:33:54 Visit Adele [facility] 350.1.13.10 it y [facility] 4.2.7.2.686 Socrates as SUAD?BLEA [phone] [address] MEDICAL OFFICE [facility] 2021-05-15 2021-05-15 Outpatient R NEMO [facility] [id number] Univers 11:00:00 12:33:54 ADELE nuñez [facility] 2021-05-15 2021-05-15 [facility] [id number] Univers 00:00:00 00:00:00 Adele HEALTH 350.1.13.10 it y [facility] 4.2.7.2.686 Socrates as SUAD?BLEA [phone] [address] MEDICAL OFFICE BUILDING 2021-05-15 2021-05-15 [facility]phone [facility] [id number] Univers 00:00:00 00:00:00 Adele HEALTH 350.1.13.10 it y [facility] 4.2.7.2.686 Socrates as SUAD?BLEA [phone] Me adam [place] [address] [place] [address] MEDICAL OFFICE BUILDING 2020-08-28 2020-08-28 Orders Fuentes [facility] [id number] 00:00:00 00:00:00 Only [facility] 2020-08-28 2020-08-28 Abstract Fuentes [facility] [id number] 00:00:00 00:00:00 [facility] 2020-08-06 2020-08-06 Telephone Freddie [facility] [id number] 00:00:00 00:00:00 [facility] 2020-08-06 2020-08-06 Lulú Frazier [facility] [id number] [id number] 00:00[facility]00 00:00:00 [facility] 2020-08-06 2020-08-06 Abstract Freddie [facility] [id number] 00:00:00 00:00:00 [facility] 2020-08-04 2020-08-04 Lulú Frazier [facility] [id number] [id number] 00:00[facility]00 00:00:00 [facility] 2020-07-28 2020-07-28 Lulú Frazier [facility] [id number] [id number] 00:00:00 00:00:00 [facility] 2020-07-28 2020-07-28 Abstract Freddie [facility] [id number] 00:00:00 00:00:00 [facility] 2020-07-25 2020-07-25 Lulú Frazier [facility] [id number] [id number] 00:00[facility]00 00:00:00 [facility] 2020-07-24 2020-07-24 Lulú Frazier [facility] [id number] [id number] 00:00[facility]00 00:00:00 [facility] 2020-07-24 2020-07-24 Documentat Freddie [facility] [id number] [id number] 00:00:00 00:00:00 [facility] 2020-07-24 2020-07-24 Abstract Freddie [facility] [id number] 00:00:00 00:00:00 [facility] 2020-04-16 2020-04-16 Office [facility] [id number] 12:56:21 13:26:21 Visit Pascale Roberts 350.1.13.10 [facility] 4.2.7.2.686 [place] [phone] [address] 2018-01-22 2018-01-22 Emergency E [place] [place] 7532 16:17:00 16:17:00 [facility] Results Test Description Test Time Test Comments Results Result Comments Source POCT GLUCOSE (AUTOMATED) 2021-05-22 23:21:50 Test Item Value Reference Range Interpretation Comme nts POCT GLU (test code = 3048416619) 129 mg/dL 70-110 H Lab Interpretation (test code = 48553-2) Abnormal [facility] GLUCOSE (AUTOMATED)2021-05-22 17:41:02 Test Item Value Reference Range Interpretation Comments POCT GLU (test code = 7973140996) 120 mg/dL 70-110 H Lab Interpretation (test code = Abnormal 42092-8) [facility] GLUCOSE (AUTOMATED)2021-05-22 13:46:20 Test Item Value Reference Range Interpretation Comments POCT GLU (test code = 7715551431) 174 mg/dL 70-110 H Lab Interpretation (test code = Abnormal 67395-6) [facility] METABOLIC PANEL (NA, K, CL, CO2, GLUCOSE, BUN, CREATININE, CA)2021-05-22 10:34:14 Test Item Value Reference Range Interpretation Comments NA (test code = 128 mmol/L 135-145 L 7528984429) K (test code = 5.2 mmol/L 3.5-5.0 H 0446770358) CL (test code = 95 mmol/L 98-108 L 7937163655) CO2 TOTAL (test code = 24 mmol/L 23-31 2734469090) AGAP (test code = 2-16 2750879777) BUN (test code = 43 mg/dL 7-23 H 2275406778) GLUCOSE (test code = 182 mg/dL 70-110 H 2060714451) CREATININE (test code = 5.93 mg/dL 0.50-1.04 H 1250314949) CALCIUM (test code = 8.0 mg/dL 8.6-10.6 L 6238018792) eGFR (test code = mL/min/1.73m2 5270400967) BRANDI (test code = BRANDI) Association of Glomerular Filtration Rate (GFR) and Staging of Kidney Disease* + --+ --+ ------+| GFR (mL/min/1.73 m2) ?| With Kidney Damage ?| ?Without Kidney Damage+ --------+ --------+ +| ?>90 ?| ?Stage one ?| ? Normal ?+ ---+ ---+ -------+| ?60-89 ?| ?Stage two ?| ? Decreased GFR ? + --+ --+ ------+| ?30-59 ?| ?Stage three ?| ? Stage three ? + --+ --+ ------+| ?15-29 ?| ?Stage four ? | ? Stage four ?+ ---+ ---+ -------+| ?<15 (or dialysis) ? ?| ?Stage five ? | ? Stage five ?+ ---+ ---+ -------+ *Each stage assumes the associated GFR level has been in effect for at least three months. ?Stages 1 to 5, with or without kidney disease, indicate chronic kidney disease. Notes: Determination of stages one and two (with eGFR >59mL/min/1.73 m2) requires estimation of kidney damage for at least three months as defined by structural or functional abnormalities of the kidney, manifested by either:Pathological abnormalities or Markers of kidney damage (including abnormalities in the composition of the blood or urine or abnormalities in imaging tests). Lab Interpretation Abnormal (test code = 18585-1) General acute hospital WITH [id number] 10:25:51 Test Item Value Reference Range Interpretation Comments WBC (test code = See_Comment [Automated 6690-2) message] The sy stem which generated this result transmitted reference range : 4.30 - 11.10 10*3/?L. The reference range was not used to interpret this result as normal/abnormal . RBC (test code = See_Comment L [Automated 789-8) message] The sy stem which generated this result transmitted reference range : 3.93 - 5.25 10*6/?L. The reference range was not used to interpret this result as normal/abnormal . HGB (test code = 7.6 g/dL 11.6-15.0 L 718-7) HCT (test code = 23.5 % 35.7-45.2 L 4544-3) MCV (test code = 95.1 fL 80.6-95.5 787-2) MCH (test code = 30.8 pg 25.9-32.8 785-6) MCHC (test code = 32.3 g/dL 31.6-35.1 786-4) RDW-SD (test code = 50.7 fL 39.0-49.9 H 97864-2) RDW-CV (test code = 14.6 % 12.0-15.5 788-0) PLT (test code = See_Comment L [Automated 777-3) message] The sy stem which generated this result transmitted reference range : 166 - 358 10*3/ ?L. The reference r alba was not used to interpret this result as normal/abnormal . MPV (test code = 11.2 fL 9.5-12.9 27881-2) NRBC/100 WBC (test See_Comment [Automat ed code = 7853843402) message] The system which generated this result transmitted reference range : 0.0 - 10.0 /100 WBCs. The refer ence range was not u sed to interpret th is result as normal/abnormal . NRBC x10^3 (test code <0.01 See_Comment [Auto mated = 2864977816) message] The s ystem which generated this result transmitted reference range : 10*3/?L. The reference range was not used to interpret this result as normal/abnormal . GRAN MAT (NEUT) % 75.4 % (test code = 770-8) IMM GRAN % (test code 0.70 % = 7205619988) LYMPH % (test code = 12.5 % 736-9) MONO % (test code = 10.3 % 5905-5) EOS % (test code = 0.8 % 713-8) BASO % (test code = 0.3 % 706-2) GRAN MAT x10^3(ANC) 4.54 10*3/uL 1.88-7.09 (test code = 8974988505) IMM GRAN x10^3 (test 0.04 10*3/uL 0.00-0.06 code = 2579588539) LYMPH x10^3 (test code 0.75 10*3/uL 1.32-3.29 L = 731-0) MONO x10^3 (test code 0.62 10*3/uL 0.33-0.92 = 742-7) EOS x10^3 (test code = 0.05 10*3/uL 0.03-0.39 711-2) BASO x10^3 (test code <0.03 0.01-0.07 = 704-7) Lab Interpretation Abnormal (test code = 58880-7) [facility] [id number] 05:24:06 Test Item Value Reference Range Interpretation Comments NT-proBNP (test code 288022 pg/mL See_Comment H [Autom ated = 8718439410) message] The system which generated this result transmitted reference range : <=125. The reference range was not used to interpret this result as normal/abnormal . BRANDI (test code = BRANDI) Biotin has been reported to cause a negative bias, interpret results relative to patient's use of biotin. Lab Interpretation Abnormal (test code = 81491-8) [facility] HospitalGlucose, [id number] 04:46:54 Test Item Value Reference Range Interpretation Comments GLUCOSE (test code = 3477479089) 107 mg/dL 70-110 Lab Interpretation (test code = Normal 29264-6) [facility] HospitalProtein Total [id number] 04:46:34 Test Item Value Reference Range Interpretation Comments T PROTEIN (test code = 8342697808) 6.1 g/dL 6.3-8.2 L Lab Interpretation (test code = Abnormal 33755-7) [facility] HospitalLACTATE [id number] 04:46:18 Test Item Value Reference Range Interpretation Comments LDH (test code = 4150248676) 311 U/L 300-600 Lab Interpretation (test code = Normal 27917-1) [facility] HospitalTR[facility] [id number] 00:24:29 Test Item Value Reference Interpretation Comments Range TROPONIN I (test 0.084 ng/mL See_Comment H [Automated code = 6139226362) message] The system which generated this result transmitted reference range : <=0.034. The reference range was not used to interpret this result as normal/abnormal . BRANDI (test code = Reference (Normal) BRANDI) Range (defined by the 99th percentile reference limit): <= 0.034 ng/mL Note: Cardiac troponin begins to rise 3-4 hours after the onset of ischemia. Repeat in 4-6 hours if the sample was drawn within 3-4 hours of the onset of the symptom and found normal. Diagnosis of myocardial injury is made with acute changes in cTn concentrations with at least one serial sample above the 99th percentile upper reference limit (URL), taken together with the patient's clinical presentation. Biotin has been reported to cause a negative bias, interpret results relative to patient's use of biotin. Lab Interpretation Abnormal (test code = 56755-9) [facility] HospitalCyto Pleural [id number] 23:21:29 Test Item Value Reference Range Interpretation Comments Case Report (test code = Non-Gynecologic 4068237156) Cytology ?Case: [id number] ?Authorizing Provider: ?Candido Robison DO ?Collected: ? 05/20/2021 1604 ?Ordering Location: ? ? [facility] Medicine Surgery Unit ?Received: ?05/20/2021 1631 ?Pathologist: ? Mariana, ? [place], MD ?Specimen: ? ?PLEURAL, RIGHT ? Final Diagnosis (test y5ajdWCmRHUmw3qoCFWfh code = 6750064379) GFuZzEwMzNcZnRuYmpcdW MxIHtccnRmMVxlcGljOTY sQAranhEdVOHxtVPtP2Uj pnfsYObkVD4hGA2ezZsjl MEchPBqIQMtRsFek8wkx3 05cQHgl7eaNAPDgiefdNf 0bLzgW32ma7C2KsdbW46m eMRkSUX7GWGaMRAsfVYgZ WQrQGN8UQYbqNVoI9jvPF AhAY8ixpxxJPvhFHxoMAY esFO4XFMowGHqX9TmZGZr PFzyBHWeyek5SmLxJa1zv GVyeTcyMFxwYXJkXHBsYW luXGJcZnMyMFxwYXIgQS4 gIFBMRVVSQSwgUklHSFQ7 QTGAT3ATD0BWJIZJDXYvX haKLOY1CBSpuyPtGLVtAE 8pDyTZJCSIToGvPb2QBV2 BTElHTkFOVCBDRUxMUyBc UoQhPRMQSTNBP14MMM4KI VxwYXJccGFyIFBhdWwgWW 34hsldGR7HYHAoxTYcpFZ xcLamqw33XZB1BDFdHzX6 LzIwMjJccHJvdGVjdDAgX HBsYWluXGZzMjAgICAyOj D8FPJCTIPwrvydGTT4h3j ydGYxXHNzdGVjZjIyMDAw EJCyh2fkSBJstUTzCsHrM zNcZnRuYmpcdWMxXGRlZm Hnn7qpx263lZOic4eyJMQ jPrR3fHClEMExyXlavae0 fLulAcNmYLLbq8gfogXqD mNoYXJzZXQwIEFyaWFsO3 88ELCpMIldr4zoc8FhJUB fcOUwf8A1BNSMQMrtPiIh B284i9wer8cylxJctXT3R SCjWMC0PZtgufZmslA6HD mzgWSpZqR9WNisdzMsUDs dxfRayoShLmm5YRAbH913 XGT9dPbrn4ytTFO1XKOkG VCbBfeoXm9adRRfN962XI OrSSDIWLUhmHh4XURatoR jigWcaZVSc094B926o0jc SCIyooAkdTmVwnmva7oqG 319XHBhcGVydzEyMjQwXH HpqXHobYI0OVYnMT5relt xTBtjJBqaFTPolgL9TGFb xKIeY0SzMATgHY2lviqwI JF7INlzSATvEOR9AmZrAA Scq3Efman0MzPjwm5giw6 8RGJ2d5SlaZdbGPD6UMQ8 NzCwSr8dfJKyZNIsAH8tY mSbgQYqNOBino88jJhgSD rhiyKukC7pEaMtOSWduQK oTEPxRO1gcKPiSSEgyB5f cmxjXHBnYnJkcmhlYWRcc MpmchVqXq8nsRtwUBZ6NR mqX6xriR3vJbU8ASrpE1n ygS4oTXr2HXibaMQ7TXAt bI9nAM6bdcbbc5noZZgdQ IomROLaqlO2juC6FBJohT XqT2KfbB1mQQYkNE0wisq xg4gjWSZ5JWsgHDPsJFG6 FcXnUGXpo1Zffib6FmVce 2FdgMYuJXnjW96ih512AX HhkpIuJ3bjiRCflcyzeRC oeryqBKpruoT0TKDuYNCu YWluXGYxXGZzMjBcbGFuZ zEwMzNcaGljaFxmMVxkYm WjSIVeGLdfE2mzAaOmO2A yXGZzMjBccGFyIEkgaGF2 SMJyKNOqn80cmEg7UQMdx logo7CvCLCnbWWwlMUulJ 8dxaOmi6zaEWHtUSZzHDW pM5DjRTX3jPPmLMWgkWUr pMW8QV3rnuMzQK0nTNQiA nkgcmVzaWRlbnRzLCBmZW tvv6nkBH9dYSYfoJvdbE4 blCM2DMJyq1dhxHPgsVAh g7fxi8SrmxCnZUpwSEVwW UqwCMVbDWGcXV3aYDFqlU GekfWeb7I9VvealFWjdea zByalksR3ZUjnxsqiSJYg UEwaA8smTcOaUCBufVkeS hzii1JwHFYpSTVmZlzhwF FyfX0= Final Diagnosis Comment m2bbeTUoKBShcBJ8EcZkH (test code = 3172761369) PJkq7qbv5RdnBBnvNNiJD bskZLxaaCngm74fHE6dG9 4HI5lKWEnMsI4LBAuhcZ7 Vyj8NYYaDFJetQZeL847r 8giq5puivQmwGE9qXhbIZ ZcsrypQhS2STdkINNnmbx vYGk3RTerAMRtaFE1LNEr iISgT6SeTCChGG8gscg5C GQ6YEzlSMJnTnA1RICpnC EwMOHetExiBEqgf566EFU 6OqUfURQduxXjyZwgmK1a ZnMyMCBTbWVhcnMgYXJlI NZxePSkK1ZuzZAeWYFjPM 0lSKBqa9rdvyTiAVFkOQ0 bN36idHXdo6YfEDsbXQlz O0WngWEqHB4nVVUmd15gH ELyGJ7lqcYxGzKNghGaXT kaW77gnsNoX2ZclYGshXU nhmMcActqHZ0vMNEokf3= Clinical Information Clinical Hx: ESRD (test code = 6425358054) Gross Description (test q7kqqDJiVUAtqLM5EiMpA code = 7534784464) WYxr3mqn2SifBIfqCNxTY ophOJjctKunq96kOM7zZ7 5BE7nVGPpUwP4DJExlrY2 Zpu8TESiAVFbfCOoT736s 9qle7hiowSkoUY2xZtrOE MrlkmcLpH9DMgwXQEqrkg vNCa0CUdvCVWcpVV9QSNj aYRnU6TaEUJlJV7osfi9R SZ3OAmuLKGnUnA6FXWtlF FgTTGdhVvoDNpes892VTZ 6QcVuALAtgeF1RApbSENi B3RxH2RhGDrbXMN6GKZiD CBcXHQgMSBcXGZsIFxcbm Y5n0tpXCKsbSIzBVC7RHm caWQgNTEwMDIgXFxkYiBP ZnPvVqQqAGF4QPG0LNUtN Th3WSheQ3VZUODnMPQ0ZE UoNJo6GvT2JUm6ZMIFBx1 cVQQ0MCNpCGl7VRY6QNP9 NCBcXHQgMiBcXGZsIFxcZ iBBcmlhbCBcXGZzIDEwIF ligcU2STMdWIadRFFxGsB ccGFyXGZzMjJccGFyIEEx LiAgUExFVVJBLCBSSUdIV GlmMSvNInWUJG6VDGELLm BGTFVJRFxwYXIgUmVjZWl 7OSJjXtXvr9hvkYCcKRPk QqnaJU9rCMegxCdauoZxs HVpZCBccGFyIFByZXBhcm UeMQSxz2szBAWwQFhlNIQ hcGFuaWNvbGFvdSBjeXRv j4PhvwfhBG2rFCKeVf5oT I6jr3CcsOIljJZcg4Tsic YtoaMzSKDwrWufezlbi5r wxDvdk2GtsVEvAV98BZDn sDDrQQQ9CP7kxOsxXAW9 Disclaimer (test code = t0zeiCSsUDZdu1kkPLMll 0302624264) GFuZzEwMzNcZnRuYmpcdW TmSDpnfwYjCLran2ZjA5K yMjAwMFxhbnNpXGRlZmxh ddmjXFCfOWO5ilGzKPFhX IyaBFLcJEmvFw7jfWXynA ggUhExJONxz7bshpGXHHh gPgVtT736LCZsSGdyn0qa k7VtRVTzeKLdz8Q9PGWFt qoplMo0hVmyS99wp2S5Vs woI0wwMYUrBNJfY8NkMJ9 pWMJfWip8LNP4ZEH6LISj RNMeS6WhRK3fGDHtcYAlN Ga5b6zmlOgxHHEwGZC9i1 dcCJlhqhJdIT6nld6fbIh 8q2wihaOhAKBgOTPieBUM CJVcC8WufLqzYl5hjRe9f QhfRwfnPNW2Jgg6WK3dug 17sbe0pUtuSRCnxvunBtO 6BKelNDAzpshwXHh5AYng TFLqwGO4GLKaaVVwB9ZvJ GWsVG0xatw9MWC6FHteML XgSpR1EBFiyTVoSZQheYm gYBxah137JFR4TqDjOQ7p T7Ixe8P4zN8ohGRmMLKve HGaMxMqOMVjzy9vtQVkKO vzo5DoCUO7twK6cBKfhLW fRHWzOC51Azeef3AmRwxx i6MaG54smMH5AVfda2znB D0fMuY3vwMxVFzrw8whrK 9eRnQ4QZwhRY8eLW3zAIS laX2gjyifXEAnAgGlcubv QHOdtKpjfvMzXs3waYmgW BH8SSomJ0xboS0gUxE2DF fpT2vpjF8sMKc0KMldoZG 6CEVwdI4kSM2hzrzde2jr JHszIAkrAYGupsP8tsM2T ACifLOtF4ZygI0pXKRjDT 2vycsyu3hcVTN2YEtnDZQ bQZV5RvTxFKYkc3Duwqk8 TaZzk5YwvKAaCRqjG97gi 688EDSflxYrV5kxgNOovf yleDPkewhjWAspedI7UVK nvhUgj4GdLRNyCHE0LYav DQsysTEoSPPcjEwvc6icN 3RscGFyXHBsYWluXGYxXG ZzMjBcbGFuZzEwMzNcaGl jaFxmMVxkYmNoXGYxXGxv R9xtLyQrL7KvUXQrVqDlh JNmY2jfMWjcayGxZXMfsw SqzSZ0CFygN0m0FFOtucS cwRe3daDqVtVkQJXnDMC5 VMlzkBBlSJDrj7Entachu QKtNp1skDFnLNCcuX4nIO DpXABkALeuWI0ytBp9YLN SiNAayFBiDvYLVTQrRY94 ydLaZLQOzomcx5Z9OBwjJ IQqx6LliXFpR4icc1FwTA Gdn56wTE4tm6F2k6coCME 9DG2lo3GlZADavREerAGg FWDob1Iqrgwyy5LgRJGqa dOfx1NkQCEoyeRxjVLhOI IfxrXxfe7csxEkIHTiFIT tX2NqjlqnyXzazlZvWGJe nv8mxoSxOCG6SNPJDJBwV KGvt7KlwV3iyVSKNDJ1jN Xqxm4swbOFvNYuAYXmwp5 5BCFpWV3xG8tkHVCaZESt fvKbwFKzf5YlSVDnvLG4f LFsLF9EIuJMp29mUFSvCN JEsfRuGAKleIjmbXR7igL 0nE0cLPkTZSPfZfi+IFRo IWCXACSrYE7trgPgc6Wwz rCksDkzQFDxoIZun8FtjU Lay5YwpNosl4ScqKFykZI sMF3oLXBpryqrSCDcNYOG ShOSYWCsvdW0p7CyLRTcU PXjQBE5tNhytwi5VILeeL 7vKZMpG4tuqqvvMQbkAXG hl8CfzG2xpBPMzNHck7Qe gNPgwULInUVrCW1myjQxJ SbOPTdRBPO9euKqEBQeh8 QyBBfqQ5xdK09etLwoiWv 9vXG3AOG5lO5hHms+IFxw YXJccGFyIEFwcHJvcHJpY CIszZapxvYaU5GtpiFzgQ 6raJSchgXyDK6nHB5cA4S 2fTLhRXGtntFdk9pxLNje dmUgYmVlbiByZXZpZXdlZ VRax7RkOZthJDM1ZRlfcy BpbmNsdWRpbmcgSCZFLCB XjMMyhMGsMSR2JUvmbqEo fbPnEO9sxE4jtYyrzU2ci LTulWV6luozOYKbMUTcqL tdRRQfPM1ghSIiGBEkubZ QqJvjiXIprK3zL6EcOVBo BKQlhw2eVGLxxE0bTLzrq 2VydmljZXMgYXJlIHBlcm Kobb6tBUJezIVRJK1UQOp mgCVsj6FwiyZzJ3bDSMW6 NUQwNjYwMjgxKSBleGNlc PSmINOiwg95JWBovD0mfW inMTOgsX2rhS8dkBpaiM7 mOyAmHmQnISlqUD9bDINi Z5vcdGDwGRViFMGpY3onD qTfdJ9ghOjkNNuvRdKaLm QzHBvwXIJ3wJ== Embedded Images (test code = 5606649041) [facility] GLUCOSE (AUTOMATED)2021-05-21 23:17:01 Test Item Value Reference Range Interpretation Comments POCT GLU (test code = 3585356605) 109 mg/dL 70-110 Lab Interpretation (test code = Normal 55360-0) [facility] [id number] 21:50:44 UNREMARKABLE LEUKOCYTES WITH ABSOLUTE LYMPHOPENIA. MODERATE NORMOCYTIC NORMOCHROMIC ANEMIA. MILD THROMBOCYTOPENIA.[facility] VITAMIN B12, [id number] 18:38:08 Test Item Value Reference Range Interpretation Comments VIT B12 (test code = >1000 240-930 H 6048746981) BRANDI (test code = BRANDI) Biotin has been reported to cause a positive bias, interpret results relative to patient's use of biotin. Lab Interpretation (test Abnormal code = 00412-9) [facility] D, [id number] 17:51:01 Test Item Value Reference Range Interpretation Comments VIT D 25OH (test code = 24 ng/mL 25-80 L 35990-2) BRANDI (test code = BRANDI) Deficiency: <20 ng/mLInsufficiency: 20-24 ng/mLOptimal: 25-80 ng/mL Lab Interpretation (test Abnormal code = 82310-5) [facility]2022-[facility]-17 17:42:20 Test Item Value Reference Range Interpretation Comments FOLATE SER (test code = 6.1 ng/mL 3.0-20.0 Biot in has been 0740294407) reported to cau se a positive bias, interpret resul ts relative to patient's use o f biotin. Lab Interpretation (test Normal code = 38634-3) [facility] GLUCOSE (AUTOMATED)2021-05-21 17:17:00 Test Item Value Reference Range Interpretation Comments POCT GLU (test code = 1477815452) 175 mg/dL 70-110 H Lab Interpretation (test code = Abnormal 77682-8) [facility] [id number] 14:52:32 Test Item Value Reference Interpretation Comments Range TROPONIN I (test 0.109 ng/mL See_Comment H [Automated code = 4354292170) message] The system which generated this result transmitted reference range : <=0.034. The reference range was not used to interpret this result as normal/abnormal . BRANDI (test code = Reference (Normal) BRANDI) Range (defined by the 99th percentile reference limit): <= 0.034 ng/mL Note: Cardiac troponin begins to rise 3-4 hours after the onset of ischemia. Repeat in 4-6 hours if the sample was drawn within 3-4 hours of the onset of the symptom and found normal. Diagnosis of myocardial injury is made with acute changes in cTn concentrations with at least one serial sample above the 99th percentile upper reference limit (URL), taken together with the patient's clinical presentation. Biotin has been reported to cause a negative bias, interpret results relative to patient's use of biotin. Lab Interpretation Abnormal (test code = 85466-6) [facility] [id number] 14:49:31 Test Item Value Reference Range Interpretation Comments IRON (test code = 0358096616) 30 ug/dL 50-160 L TIBC (test code = 4217310696) 185 ug/dL 250-410 L % FE SAT (test code = 4055511368) 16 % 20-50 L Lab Interpretation (test code = Abnormal 48719-8) [facility] 14:06:00 Test Item Value Reference Range Interpretation Comments POCT GLU (test code = 0888648095) 191 mg/dL 70-110 H Lab Interpretation (test code = Abnormal 42429-4) [facility] [id number] 14:05:25 Test Item Value Reference Range Interpretation Comments FERRITIN (test code = 715.0 ng/mL 11.0-264.0 H [id number]) BRANDI (test code = BRANDI) Biotin has been reported to cause a negative bias, interpret results relative to patient's use of biotin. Lab Interpretation (test Abnormal code = 82762-5) [facility] [id number] 13:56:37 Test Item Value Reference Range Interpretation Comments NT-proBNP (test code 362830 pg/mL See_Comment H [Autom ated = 2144909587) message] The system which generated this result transmitted reference range : <=125. The reference range was not used to interpret this result as normal/abnormal . BRANDI (test code = BRANDI) Biotin has been reported to cause a negative bias, interpret results relative to patient's use of biotin. Lab Interpretation Abnormal (test code = 51007-1) [facility] [id number] 13:43:04 Test Item Value Reference Interpretation Comments Range TROPONIN I (test 0.100 ng/mL See_Comment H [Automated code = 5882834652) message] The system which generated this result transmitted reference range : <=0.034. The reference range was not used to interpret this result as normal/abnormal . BRANDI (test code = Reference (Normal) BRANDI) Range (defined by the 99th percentile reference limit): <= 0.034 ng/mL Note: Cardiac troponin begins to rise 3-4 hours after the onset of ischemia. Repeat in 4-6 hours if the sample was drawn within 3-4 hours of the onset of the symptom and found normal. Diagnosis of myocardial injury is made with acute changes in cTn concentrations with at least one serial sample above the 99th percentile upper reference limit (URL), taken together with the patient's clinical presentation. Biotin has been reported to cause a negative bias, interpret results relative to patient's use of biotin. Lab Interpretation Abnormal (test code = 78568-0) [facility] (ALB,T.PRO,BILI T,BU/BC,ALT,AST,ALK PHOS)2021-05-21 13:30:03 Test Item Value Reference Range Interpretation Comments TOTAL BILI (test code = 7492958117) 0.7 mg/dL 0.1-1.1 BILI UNCON (test code = 0192316144) 0.0 mg/dL 0.1-1.1 L BILI CONJ (test code = 3648064338) 0.0 mg/dL 0.0-0.3 T PROTEIN (test code = 4765462478) 7.2 g/dL 6.3-8.2 ALBUMIN (test code = 4211580420) 3.5 g/dL 3.5-5.0 ALK PHOS (test code = 9596819167) 156 U/L 34-122 H ALTv (test code = 1742-6) 12 U/L 5-35 AST(SGOT) (test code = 4928641240) 28 U/L 13-40 Lab Interpretation (test code = Abnormal 18408-2) [facility] WITH [id number] 10:18:09 Test Item Value Reference Range Interpretation Comments WBC (test code = See_Comment [Automated 6690-2) message] The sy stem which generated this result transmitted reference range : 4.30 - 11.10 10*3/?L. The reference range was not used to interpret this result as normal/abnormal . RBC (test code = See_Comment L [Automated 789-8) message] The sy stem which generated this result transmitted reference range : 3.93 - 5.25 10*6/?L. The reference range was not used to interpret this result as normal/abnormal . HGB (test code = 7.9 g/dL 11.6-15.0 L 718-7) HCT (test code = 25.0 % 35.7-45.2 L 4544-3) MCV (test code = 97.3 fL 80.6-95.5 H 787-2) MCH (test code = 30.7 pg 25.9-32.8 785-6) MCHC (test code = 31.6 g/dL 31.6-35.1 786-4) RDW-SD (test code = 52.3 fL 39.0-49.9 H 27129-8) RDW-CV (test code = 14.9 % 12.0-15.5 788-0) PLT (test code = See_Comment L [Automated 777-3) message] The sy stem which generated this result transmitted reference range : 166 - 358 10*3/ ?L. The reference r alba was not used to interpret this result as normal/abnormal . MPV (test code = 11.0 fL 9.5-12.9 47602-7) NRBC/100 WBC (test See_Comment [Automat ed code = 6786938497) message] The system which generated this result transmitted reference range : 0.0 - 10.0 /100 WBCs. The refer ence range was not u sed to interpret th is result as normal/abnormal . NRBC x10^3 (test code <0.01 See_Comment [Auto mated = 2154984524) message] The s ystem which generated this result transmitted reference range : 10*3/?L. The reference range was not used to interpret this result as normal/abnormal . GRAN MAT (NEUT) % 74.4 % (test code = 770-8) IMM GRAN % (test code 0.30 % = 2901434778) LYMPH % (test code = 12.9 % 736-9) MONO % (test code = 11.2 % 5905-5) EOS % (test code = 0.7 % 713-8) BASO % (test code = 0.5 % 706-2) GRAN MAT x10^3(ANC) 4.40 10*3/uL 1.88-7.09 (test code = 2471491469) IMM GRAN x10^3 (test <0.03 0.00-0.06 code = 3862686747) LYMPH x10^3 (test code 0.76 10*3/uL 1.32-3.29 L = 731-0) MONO x10^3 (test code 0.66 10*3/uL 0.33-0.92 = 742-7) EOS x10^3 (test code = 0.04 10*3/uL 0.03-0.39 711-2) BASO x10^3 (test code 0.03 10*3/uL 0.01-0.07 = 704-7) Lab Interpretation Abnormal (test code = 46458-7) [facility] METABOLIC PANEL (NA, K, CL, CO2, GLUCOSE, BUN, CREATININE, CA)2021-05-21 10:17:29 Test Item Value Reference Range Interpretation Comments NA (test code = 132 mmol/L 135-145 L 5544247715) K (test code = 4.6 mmol/L 3.5-5.0 2059965170) CL (test code = 99 mmol/L 98-108 6761543631) CO2 TOTAL (test code = 27 mmol/L 23-31 3321617636) AGAP (test code = 2-16 8069420190) BUN (test code = 30 mg/dL 7-23 H 8237166241) GLUCOSE (test code = 129 mg/dL 70-110 H 5260699505) CREATININE (test code = 4.51 mg/dL 0.50-1.04 H 0068392530) CALCIUM (test code = 8.1 mg/dL 8.6-10.6 L 4969220701) eGFR (test code = mL/min/1.73m2 6134104401) BRANDI (test code = BRANDI) Association of Glomerular Filtration Rate (GFR) and Staging of Kidney Disease* + --+ --+ ------+| GFR (mL/min/1.73 m2) ?| With Kidney Damage ?| ?Without Kidney Damage+ --------+ --------+ +| ?>90 ?| ?Stage one ?| ? Normal ?+ ---+ ---+ -------+| ?60-89 ?| ?Stage two ?| ? Decreased GFR ? + --+ --+ ------+| ?30-59 ?| ?Stage three ?| ? Stage three ? + --+ --+ ------+| ?15-29 ?| ?Stage four ? | ? Stage four ?+ ---+ ---+ -------+| ?<15 (or dialysis) ? ?| ?Stage five ? | ? Stage five ?+ ---+ ---+ -------+ *Each stage assumes the associated GFR level has been in effect for at least three months. ?Stages 1 to 5, with or without kidney disease, indicate chronic kidney disease. Notes: Determination of stages one and two (with eGFR >59mL/min/1.73 m2) requires estimation of kidney damage for at least three months as defined by structural or functional abnormalities of the kidney, manifested by either:Pathological abnormalities or Markers of kidney damage (including abnormalities in the composition of the blood or urine or abnormalities in imaging tests). Lab Interpretation Abnormal (test code = 90312-5) [facility] GLUCOSE (AUTOMATED)2021-05-21 02:24:31 Test Item Value Reference Range Interpretation Comments POCT GLU (test code = 3911281119) 123 mg/dL 70-110 H Lab Interpretation (test code = Abnormal 83969-9) [facility] GLUCOSE (AUTOMATED)2021-05-20 22:40:15 Test Item Value Reference Range Interpretation Comments POCT GLU (test code = 3246365899) 193 mg/dL 70-110 H Lab Interpretation (test code = Abnormal 33857-5) [facility] GLUCOSE (AUTOMATED)2021-05-20 17:24:39 Test Item Value Reference Range Interpretation Comments POCT GLU (test code = 7722527116) 129 mg/dL 70-110 H Lab Interpretation (test code = Abnormal 31410-2) [id number] 16:20:09 Test Item Value Reference Range Interpretation Comments NT-proBNP (test code 310298 pg/mL See_Comment H [Autom ated = 5007273089) message] The system which generated this result transmitted reference range : <=125. The reference range was not used to interpret this result as normal/abnormal . BRANDI (test code = BRANDI) Biotin has been reported to cause a negative bias, interpret results relative to patient's use of biotin. Lab Interpretation Abnormal (test code = 94507-1) [facility] GLUCOSE (AUTOMATED)2021-05-20 13:50:50 Test Item Value Reference Range Interpretation Comments POCT GLU (test code = 8283603223) 142 mg/dL 70-110 H Lab Interpretation (test code = Abnormal 87575-5) [facility] [id number] 11:29:26 Test Item Value Reference Range Interpretation Comments LDH (test code = 3053503250) 424 U/L 300-600 Slight hemolysis Lab Interpretation (test code Normal = 40898-9) [facility] (NA, K, CL, CO2, GLUCOSE, BUN, CREATININE, CA)2021-05-20 11:28:05 Test Item Value Reference Range Interpretation Comments NA (test code = 132 mmol/L 135-145 L 9995907411) K (test code = 4.6 mmol/L 3.5-5.0 5952282972) CL (test code = 97 mmol/L 98-108 L 1952829162) CO2 TOTAL (test code = 26 mmol/L 23-31 1588450395) AGAP (test code = 2-16 3366864351) BUN (test code = 44 mg/dL 7-23 H 4963925022) GLUCOSE (test code = 161 mg/dL 70-110 H 0169444897) CREATININE (test code = 6.29 mg/dL 0.50-1.04 H 4882731143) CALCIUM (test code = 8.0 mg/dL 8.6-10.6 L 1493138377) eGFR (test code = mL/min/1.73m2 7352719855) BRANDI (test code = BRANDI) Association of Glomerular Filtration Rate (GFR) and Staging of Kidney Disease* + --+ --+ ------+| GFR (mL/min/1.73 m2) ?| With Kidney Damage ?| ?Without Kidney Damage+ --------+ --------+ +| ?>90 ?| ?Stage one ?| ? Normal ?+ ---+ ---+ -------+| ?60-89 ?| ?Stage two ?| ? Decreased GFR ? + --+ --+ ------+| ?30-59 ?| ?Stage three ?| ? Stage three ? + --+ --+ ------+| ?15-29 ?| ?Stage four ? | ? Stage four ?+ ---+ ---+ -------+| ?<15 (or dialysis) ? ?| ?Stage five ? | ? Stage five ?+ ---+ ---+ -------+ *Each stage assumes the associated GFR level has been in effect for at least three months. ?Stages 1 to 5, with or without kidney disease, indicate chronic kidney disease. Notes: Determination of stages one and two (with eGFR >59mL/min/1.73 m2) requires estimation of kidney damage for at least three months as defined by structural or functional abnormalities of the kidney, manifested by either:Pathological abnormalities or Markers of kidney damage (including abnormalities in the composition of the blood or urine or abnormalities in imaging tests). Lab Interpretation Abnormal (test code = 97801-5) [facility] / [id number] 11:17:25 Test Item Value Reference Range Interpretation Comments PROTIME PATIENT (test See_Comment [Auto mated message] code = 5964-2) The system [employer] generated this result transmitted ref erence range: 12.0 - 1 4.7 Seconds. The re ference range was not u sed to interpret this result as normal/abnor mal. INR (test code = 6301-6) Nor mal INR <1.1; Warfarin Therap eutic range 2.0 to 3. 0 or 2.5 to 3.5, dep ending upon the indica tions. Lab Interpretation (test Normal code = 96070-3) [facility] GLUCOSE (AUTOMATED)2021-05-20 01:38:05 Test Item Value Reference Range Interpretation Comments POCT GLU (test code = 7406262493) 181 mg/dL 70-110 H Lab Interpretation (test code = Abnormal 82610-7) [facility] GLUCOSE (AUTOMATED)2021-05-19 23:12:33 Test Item Value Reference Range Interpretation Comments POCT GLU (test code = 9927101167) 129 mg/dL 70-110 H Lab Interpretation (test code = Abnormal 39954-7) [facility] GLUCOSE (AUTOMATED)2021-05-19 17:43:05 Test Item Value Reference Range Interpretation Comments POCT GLU (test code = 4667984691) 195 mg/dL 70-110 H Lab Interpretation (test code = Abnormal 13887-3) [facility] [id number] 16:56:37 Test Item Value Reference Range Interpretation Comments NT-proBNP (test code 943521 pg/mL See_Comment H [Autom ated = 1566198867) message] The system which generated this result transmitted reference range : <=125. The reference range was not used to interpret this result as normal/abnormal . BRANDI (test code = BRANDI) Biotin has been reported to cause a negative bias, interpret results relative to patient's use of biotin. Lab Interpretation Abnormal (test code = 53874-3) [facility] METABOLIC PANEL (NA, K, CL, CO2, GLUCOSE, BUN, CREATININE, CA)2021-05-19 15:16:19 Test Item Value Reference Range Interpretation Comments NA (test code = 132 mmol/L 135-145 L 0243764953) K (test code = 4.7 mmol/L 3.5-5.0 7008082641) CL (test code = 98 mmol/L 98-108 3408333300) CO2 TOTAL (test code = 24 mmol/L 23-31 2755894658) AGAP (test code = 2-16 1527432182) BUN (test code = 30 mg/dL 7-23 H 9182377336) GLUCOSE (test code = 101 mg/dL 70-110 1042547946) CREATININE (test code = 4.70 mg/dL 0.50-1.04 H 2157502820) CALCIUM (test code = 8.3 mg/dL 8.6-10.6 L 6373097202) eGFR (test code = mL/min/1.73m2 8872047864) BRANDI (test code = BRANDI) Association of Glomerular Filtration Rate (GFR) and Staging of Kidney Disease* + --+ --+ ------+| GFR (mL/min/1.73 m2) ?| With Kidney Damage ?| ?Without Kidney Damage+ --------+ --------+ +| ?>90 ?| ?Stage one ?| ? Normal ?+ ---+ ---+ -------+| ?60-89 ?| ?Stage two ?| ? Decreased GFR ? + --+ --+ ------+| ?30-59 ?| ?Stage three ?| ? Stage three ? + --+ --+ ------+| ?15-29 ?| ?Stage four ? | ? Stage four ?+ ---+ ---+ -------+| ?<15 (or dialysis) ? ?| ?Stage five ? | ? Stage five ?+ ---+ ---+ -------+ *Each stage assumes the associated GFR level has been in effect for at least three months. ?Stages 1 to 5, with or without kidney disease, indicate chronic kidney disease. Notes: Determination of stages one and two (with eGFR >59mL/min/1.73 m2) requires estimation of kidney damage for at least three months as defined by structural or functional abnormalities of the kidney, manifested by either:Pathological abnormalities or Markers of kidney damage (including abnormalities in the composition of the blood or urine or abnormalities in imaging tests). Lab Interpretation Abnormal (test code = 09998-4) [facility] 14:16:27 Test Item Value Reference Range Interpretation Comments POCT GLU (test code = 5484091545) 112 mg/dL 70-110 H Lab Interpretation (test code = Abnormal 38283-9) [facility] WITH [id number] 13:09:08 Test Item Value Reference Range Interpretation Comments WBC (test code = See_Comment [Automated 6690-2) message] The sy stem which generated this result transmitted reference range : 4.30 - 11.10 10*3/?L. The reference range was not used to interpret this result as normal/abnormal . RBC (test code = See_Comment L [Automated 789-8) message] The sy stem which generated this result transmitted reference range : 3.93 - 5.25 10*6/?L. The reference range was not used to interpret this result as normal/abnormal . HGB (test code = 8.3 g/dL 11.6-15.0 L 718-7) HCT (test code = 26.0 % 35.7-45.2 L 4544-3) MCV (test code = 97.0 fL 80.6-95.5 H 787-2) MCH (test code = 31.0 pg 25.9-32.8 785-6) MCHC (test code = 31.9 g/dL 31.6-35.1 786-4) RDW-SD (test code = 51.2 fL 39.0-49.9 H 44756-3) RDW-CV (test code = 14.6 % 12.0-15.5 788-0) PLT (test code = See_Comment L [Automated 777-3) message] The sy stem which generated this result transmitted reference range : 166 - 358 10*3/ ?L. The reference r alba was not used to interpret this result as normal/abnormal . MPV (test code = 11.0 fL 9.5-12.9 65258-7) NRBC/100 WBC (test See_Comment [Automat ed code = 7930053473) message] The system which generated this result transmitted reference range : 0.0 - 10.0 /100 WBCs. The refer ence range was not u sed to interpret th is result as normal/abnormal . NRBC x10^3 (test code <0.01 See_Comment [Auto mated = 4391470668) message] The s ystem which generated this result transmitted reference range : 10*3/?L. The reference range was not used to interpret this result as normal/abnormal . GRAN MAT (NEUT) % 82.8 % (test code = 770-8) IMM GRAN % (test code 0.40 % = 1146968468) LYMPH % (test code = 7.8 % 736-9) MONO % (test code = 7.9 % 5905-5) EOS % (test code = 0.7 % 713-8) BASO % (test code = 0.4 % 706-2) GRAN MAT x10^3(ANC) 5.98 10*3/uL 1.88-7.09 (test code = 0409198822) IMM GRAN x10^3 (test 0.03 10*3/uL 0.00-0.06 code = 2777372840) LYMPH x10^3 (test code 0.56 10*3/uL 1.32-3.29 L = 731-0) MONO x10^3 (test code 0.57 10*3/uL 0.33-0.92 = 742-7) EOS x10^3 (test code = 0.05 10*3/uL 0.03-0.39 711-2) BASO x10^3 (test code 0.03 10*3/uL 0.01-0.07 = 704-7) Lab Interpretation Abnormal (test code = 71259-1) [facility]ody (HBsAb)2021-05-19 09:35:37 Test Item Value Reference Range Interpretation Comments HBsAB (test code = Positive 4064582923) HBsAb mIU/mL Semi-Quantitative (test code = 5042381605) BRANDI (test code = Interpretation: BRANDI) ?Hepatitis B Surface Antibody ? Negative - Patient is considered to be not immune to infection with HBV. ? ? Positive - Anti-HBs detected at greater than or equal to 12 mIU/mL. ?Patient is considered to be immune to infection with HBV. ? [facility]21-[facility]19 09:17:53 Test Item Value Reference Range Interpretation Comments HBsAg Semi-Quantitative (test code = Negative Negative 5195-3) [facility]21-[facility]-19 03:13:02 Test Item Value Reference Range Interpretation Comments POCT GLU (test code = 0075717964) 110 mg/dL 70-110 Lab Interpretation (test code = Normal 99279-4) [facility] GLUCOSE (AUTOMATED)2021-05-18 23:00:40 Test Item Value Reference Range Interpretation Comments POCT GLU (test code = 4304187095) 177 mg/dL 70-110 H Lab Interpretation (test code = Abnormal 17755-2) [facility] GLUCOSE (AUTOMATED)2021-05-18 17:50:50 Test Item Value Reference Range Interpretation Comments POCT GLU (test code = 3965149602) 179 mg/dL 70-110 H Lab Interpretation (test code = Abnormal 46499-5) [facility] GLUCOSE (AUTOMATED)2021-05-18 17:26:29 Test Item Value Reference Range Interpretation Comments POCT GLU (test code = 6134414938) 171 mg/dL 70-110 H Lab Interpretation (test code = Abnormal 91139-8) [facility] METABOLIC PANEL (NA, K, CL, CO2, GLUCOSE, BUN, CREATININE, CA)2021-05-18 15:43:01 Test Item Value Reference Range Interpretation Comments NA (test code = 128 mmol/L 135-145 L 9412964506) K (test code = 5.5 mmol/L 3.5-5.0 H 5159802996) CL (test code = 94 mmol/L 98-108 L 8966436623) CO2 TOTAL (test code = 24 mmol/L 23-31 1363054381) AGAP (test code = 2-16 0799985673) BUN (test code = 56 mg/dL 7-23 H 3834557852) GLUCOSE (test code = 130 mg/dL 70-110 H 9162617195) CREATININE (test code = 7.52 mg/dL 0.50-1.04 H 7595133554) CALCIUM (test code = 7.8 mg/dL 8.6-10.6 L 5795241361) eGFR (test code = mL/min/1.73m2 3120436255) BRANDI (test code = BRANDI) Association of Glomerular Filtration Rate (GFR) and Staging of Kidney Disease* + --+ --+ ------+| GFR (mL/min/1.73 m2) ?| With Kidney Damage ?| ?Without Kidney Damage+ --------+ --------+ +| ?>90 ?| ?Stage one ?| ? Normal ?+ ---+ ---+ -------+| ?60-89 ?| ?Stage two ?| ? Decreased GFR ? + --+ --+ ------+| ?30-59 ?| ?Stage three ?| ? Stage three ? + --+ --+ ------+| ?15-29 ?| ?Stage four ? | ? Stage four ?+ ---+ ---+ -------+| ?<15 (or dialysis) ? ?| ?Stage five ? | ? Stage five ?+ ---+ ---+ -------+ *Each stage assumes the associated GFR level has been in effect for at least three months. ?Stages 1 to 5, with or without kidney disease, indicate chronic kidney disease. Notes: Determination of stages one and two (with eGFR >59mL/min/1.73 m2) requires estimation of kidney damage for at least three months as defined by structural or functional abnormalities of the kidney, manifested by either:Pathological abnormalities or Markers of kidney damage (including abnormalities in the composition of the blood or urine or abnormalities in imaging tests). Lab Interpretation Abnormal (test code = 14129-8) [facility] GLUCOSE (AUTOMATED)2021-05-18 13:33:12 Test Item Value Reference Range Interpretation Comments POCT GLU (test code = 8842430711) 129 mg/dL 70-110 H Lab Interpretation (test code = Abnormal 38060-6) [facility] GLUCOSE (AUTOMATED)2021-05-17 22:57:15 Test Item Value Reference Range Interpretation Comments POCT GLU (test code = 4533855445) 215 mg/dL 70-110 H Lab Interpretation (test code = Abnormal 00125-1) [facility]2021-05-17 18:02:09 Test Item Value Reference Range Interpretation Comments LVOT diameter (test code 2.00 cm = 4900128394) MV Peak E Sandro (test code 134.0 cm/s = 8678905734) MV Peak A Sandro (test code 54.2 cm/s = 9790185059) E/A ratio (test code = ratio 6675327059) E wave decelartion time 0.22 s (test code = 6444407505) LA size (test code = 5.4 cm 4405176017) MV stenosis pressure 1/2 65.0 ms time (test code = 3178876500) MV dec slope (test code 604.00 cm/s2 = 8603684992) Ao root annulus (test 2.7 cm code = 6686970824) Ao root diam (test code 2.70 cm = 1003722372) Aortic root (test code = 2.7 cm 0125268848) LVIDD (test code = 5.10 cm 3687016243) IVS (test code = 1.06 cm 5876408943) Interventricular Septum 1.06 cm Diastolic Thickness by 2D (test code = 4911605) LVPWD (test code = 1.00 cm 1213482300) PW (test code = 1.00 cm 0.6-1.8 7841181444) LVIDS (test code = 3.70 cm 5579531123) FS (test code = 27 % 4248757147) EF(Teich) (test code = 52.60 % 3226881287) EF - 2D (test code = 52.60 % 96958770) MR max PG (test code = 123.90 mm[Hg] 6911054536) MR max sandro (test code = 556.50 cm/s 2186740927) Mr max sandro (test code = 556.5 m/s 8918284226) LAV(MOD-sp4) (test code 46.70 mL = 0758228557) LA Volume Index (BP) 29.2 mL/m2 (test code = 9180369151) LA volume (BP) (test 51.8 mL code = 0496353733) LAV(MOD-sp2) (test code 52.40 mL = 4164580748) Aortic valve mean 105.0 cm/s velocity (test code = 4425460886) Ao peak sandro (test code = 160.0 cm/s 6138867493) Ao VTI (test code = 30.0 cm 2606169195) Ao max PG (test code = 10.20 mm[Hg] 3099957850) AV peak gradient (test mmHg code = 9837448576) AV mean gradient (test mmHg code = 0521569135) LVOT stroke volume (test 63.60 cm3 code = 2818721167) LVOT peak sandro (test code 108.3 cm/s = 8839923458) LVOT mn grad (test code mmHg = 2358651705) AV LVOT peak gradient mmHg (test code = 6323821437) LVOT peak VTI (test code 20.2 cm = 1539388868) AV area by cont VTI 2.1 cm2 (test code = 8249401808) AV area peak sandro (test 2.1 cm2 code = 7607057047) LV V1 mean (test code = 66.80 cm/s 1164431993) AV valve area (test code 2.12 cm2 = 2191250144) TR Peak Sandro (test code = 342.9 cm/s 1045213372) Triscuspid Valve mmHg Regurgitation Peak Gradient (test code = 1219934059) PV REGURGITATION PEAK mmHg GRADIENT (test code = 1899481150) PI dec slope (test code 438.00 cm/s2 = 6145741014) Pulmonic Regurgitant End 105.3 cm/s Max Velocity (test code = 3610044246) Inferior Vena Cava 2.33 cm Diameter (test code = 3881531217) MV Prop V (test code = 37.50 cm/s 6140934220) Radiology Study observation (narrative) (test code = 13426-1) ADD (test code = ADD) Addendum by Brenda Fuentes MD on 05/17/2021 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 Diastolic function is restrictive. Elevated left ventricular filling pressure. ?Tricuspid?Valve: Moderate transvalvular regurgitation with a centrally directed jet. Right ventricular systolic pressure is greater than 60 mmHg. RA pressure is 15-20 mmHg. Mildly thickened leaflets. VitalsHeight Weight BSA (Calculated - sq m) BP Pulse 5' 3" (1.6 m) 163 lb (73.9 kg) 1.81 sq meters 165/73 71 [facility] GLUCOSE (AUTOMATED)2021-05-17 17:54:17 Test Item Value Reference Range Interpretation Comments POCT GLU (test code = 5815656670) 134 mg/dL 70-110 H Lab Interpretation (test code = Abnormal 84627-6) [facility] GLUCOSE (AUTOMATED)2021-05-17 14:18:37 Test Item Value Reference Range Interpretation Comments POCT GLU (test code = 2931222830) 119 mg/dL 70-110 H Lab Interpretation (test code = Abnormal 62287-8) [facility] [id number] 11:21:13 Test Item Value Reference Range Interpretation Comments NT-proBNP (test code 223229 pg/mL See_Comment H [Autom ated = 9953423271) message] The system which generated this result transmitted reference range : <=125. The reference range was not used to interpret this result as normal/abnormal . BRANDI (test code = BRANDI) Biotin has been reported to cause a negative bias, interpret results relative to patient's use of biotin. Lab Interpretation Abnormal (test code = 27904-4) [facility] HospitalCBC WITHOUT [id number] 11:09:22 Test Item Value Reference Range Interpretation Comments WBC (test code = 6690-2) See_Comment [A utomated message] The system [employer] generated this result transmit levi reference range : 4.30 - 11.10 10*3/?L. The reference range was not used to interpret this result as normal/abnormal . RBC (test code = 789-8) See_Comment L [Au tomated message] The system [employer] generated this result transmit levi reference range : 3.93 - 5.25 10* 6/?L. The reference r alab was not used to interpret this result as normal/abnormal . HGB (test code = 718-7) 9.1 g/dL 11.6-15.0 L HCT (test code = 4544-3) 27.6 % 35.7-45.2 L MCH (test code = 785-6) 31.3 pg 25.9-32.8 MCV (test code = 787-2) 94.8 fL 80.6-95.5 MCHC (test code = 786-4) 33.0 g/dL 31.6-35.1 PLT (test code = 777-3) See_Comment L [Au tomated message] The system [employer] generated this result transmit levi reference range : 166 - 358 10*3/?L. The reference range was not used to interpret this result as normal/abnormal . MPV (test code = 11.1 fL 9.5-12.9 45444-7) RDW-CV (test code = 14.5 % 12.0-15.5 788-0) RDW-SD (test code = 50.8 fL 39.0-49.9 H 05340-2) NRBC x10^3 (test code = <0.01 See_Comment [Au tomated message] 4552914681) The system [employer] generated this result transmit levi reference range : 10*3/?L. The reference range was not used to interpret this result as normal/abnormal . NRBC/100 WBC (test code See_Comment [Au tomated message] = 0874334555) The system [employer] ch generated this result transmit levi reference range : 0.0 - 10.0 /100 WBC s. The reference r alba was not used to interpret this result as normal/abnormal . IPF % (test code = 2197001193) Lab Interpretation (test Abnormal code = 49846-7) [facility] 10:56:23 Test Item Value Reference Range Interpretation Comments MAGNESIUM (test code = 3322887883) 2.1 mg/dL 1.7-2.4 Lab Interpretation (test code = Normal 15067-4) [facility] (NA, K, CL, CO2, GLUCOSE, BUN, CREATININE, CA)2021-05-17 10:56:22 Test Item Value Reference Range Interpretation Comments NA (test code = 130 mmol/L 135-145 L 3402901742) K (test code = 4.6 mmol/L 3.5-5.0 7218448125) CL (test code = 96 mmol/L 98-108 L 9683413281) CO2 TOTAL (test code = 26 mmol/L 23-31 6799536510) AGAP (test code = 2-16 9148630663) BUN (test code = 42 mg/dL 7-23 H 5881639073) GLUCOSE (test code = 148 mg/dL 70-110 H 8628789244) CREATININE (test code = 5.84 mg/dL 0.50-1.04 H 6232208721) CALCIUM (test code = 7.9 mg/dL 8.6-10.6 L 9247833354) eGFR (test code = mL/min/1.73m2 1525124053) BRANDI (test code = BRANDI) Association of Glomerular Filtration Rate (GFR) and Staging of Kidney Disease* + --+ --+ ------+| GFR (mL/min/1.73 m2) ?| With Kidney Damage ?| ?Without Kidney Damage+ --------+ --------+ +| ?>90 ?| ?Stage one ?| ? Normal ?+ ---+ ---+ -------+| ?60-89 ?| ?Stage two ?| ? Decreased GFR ? + --+ --+ ------+| ?30-59 ?| ?Stage three ?| ? Stage three ? + --+ --+ ------+| ?15-29 ?| ?Stage four ? | ? Stage four ?+ ---+ ---+ -------+| ?<15 (or dialysis) ? ?| ?Stage five ? | ? Stage five ?+ ---+ ---+ -------+ *Each stage assumes the associated GFR level has been in effect for at least three months. ?Stages 1 to 5, with or without kidney disease, indicate chronic kidney disease. Notes: Determination of stages one and two (with eGFR >59mL/min/1.73 m2) requires estimation of kidney damage for at least three months as defined by structural or functional abnormalities of the kidney, manifested by either:Pathological abnormalities or Markers of kidney damage (including abnormalities in the composition of the blood or urine or abnormalities in imaging tests). Lab Interpretation Abnormal (test code = 39594-8) [facility]02 Test Item Value Reference Range Interpretation Comments PHOSPHORUS (test code = 3182330967) 5.8 mg/dL 2.5-5.0 H Lab Interpretation (test code = Abnormal 35526-8) [facility] GLUCOSE (AUTOMATED)2021-05-16 22:43:07 Test Item Value Reference Range Interpretation Comments POCT GLU (test code = 9907354891) 231 mg/dL 70-110 H Lab Interpretation (test code = Abnormal 52069-1) [facility] GLUCOSE (AUTOMATED)2021-05-16 17:43:53 Test Item Value Reference Range Interpretation Comments POCT GLU (test code = 3276738988) 154 mg/dL 70-110 H Lab Interpretation (test code = Abnormal 05018-3) [facility]21-[facility]-16 13:42:36 Test Item Value Reference Range Interpretation Comments POCT GLU (test code = 1848827235) 121 mg/dL 70-110 H Lab Interpretation (test code = Abnormal 19273-1) [facility] [id number] 09:48:31 Test Item Value Reference Range Interpretation Comments WBC (test code = 6690-2) See_Comment [A utomated message] The system [employer] generated this result transmit levi reference range : 4.30 - 11.10 10*3/?L. The reference range was not used to interpret this result as normal/abnormal . RBC (test code = 789-8) See_Comment L [Au tomated message] The system [employer] generated this result transmit levi reference range : 3.93 - 5.25 10* 6/?L. The reference r alba was not used to interpret this result as normal/abnormal . HGB (test code = 718-7) 8.5 g/dL 11.6-15.0 L HCT (test code = 4544-3) 26.0 % 35.7-45.2 L MCH (test code = 785-6) 31.6 pg 25.9-32.8 MCV (test code = 787-2) 96.7 fL 80.6-95.5 H MCHC (test code = 786-4) 32.7 g/dL 31.6-35.1 PLT (test code = 777-3) See_Comment L [Au tomated message] The system [employer] generated this result transmit levi reference range : 166 - 358 10*3/?L. The reference range was not used to interpret this result as normal/abnormal . MPV (test code = 10.9 fL 9.5-12.9 61155-7) RDW-CV (test code = 15.0 % 12.0-15.5 788-0) RDW-SD (test code = 52.6 fL 39.0-49.9 H 79702-4) NRBC x10^3 (test code = <0.01 See_Comment [Au tomated message] 7558935908) The system [employer] generated this result transmit levi reference range : 10*3/?L. The reference range was not used to interpret this result as normal/abnormal . NRBC/100 WBC (test code See_Comment [Au tomated message] = 2366237238) The system [facility] generated this result transmit levi reference range : 0.0 - 10.0 /100 WBC s. The reference r alba was not used to interpret this result as normal/abnormal . IPF % (test code = 6450258597) Lab Interpretation (test Abnormal code = 98577-5) [facility] (Total Cholesterol, Triglycerides, HDL)2021-05-16 09:36:18 Test Item Value Reference Range Interpretation Comments CHOL (test code = 157 mg/dL 120-200 7199201050) HDL (test code = 26 mg/dL >50 L 5442489926) HDLC RATIO (test code = See_Comment H [Au tomated message] 2574643282) The system [employer] generated this result transmit levi reference range : <=4.5. The refe rence range was not u sed to interpret th is result as normal/abnormal . TRIG (test code = 146 mg/dL 30-170 2302326291) LDL CHOL (test code = 102 mg/dL See_Comment [Auto mated message] 01908-4) The system [employer] generated this result transmit levi reference range : <=160. The refe rence range was not u sed to interpret th is result as normal/abnormal . VLDL (test code = 29 mg/dL 5-60 2890366583) Lab Interpretation (test Abnormal code = 78235-1) [facility] HospitalGlycosylated Hemoglobin (A1C)2021-05-16 09:22:50 Test Item Value Reference Range Interpretation Comments HGB A1C (test code = 6.2 % 4.0-5.7 H 4548-4) BRANDI (test code = BRANDI) Reference RangesNormal: <5.7%Prediabetes: 5.7 - 6.4%Diabetes: > 6.5% Lab Interpretation (test Abnormal code = 88184-4) [facility] HospitalTroponin [id number] 09:19:18 Test Item Value Reference Interpretation Comments Range TROPONIN I (test 0.028 ng/mL See_Comment [Automated code = 6639787480) message] The system which generated this result transmitted reference range : <=0.034. The reference range was not used to interpret this result as normal/abnormal . BRANDI (test code = Reference (Normal) BRANDI) Range (defined by the 99th percentile reference limit): <= 0.034 ng/mL Note: Cardiac troponin begins to rise 3-4 hours after the onset of ischemia. Repeat in 4-6 hours if the sample was drawn within 3-4 hours of the onset of the symptom and found normal. Diagnosis of myocardial injury is made with acute changes in cTn concentrations with at least one serial sample above the 99th percentile upper reference limit (URL), taken together with the patient's clinical presentation. Biotin has been reported to cause a negative bias, interpret results relative to patient's use of biotin. Lab Interpretation Normal (test code = 20962-1) [facility] Metabolic Panel (NA, K, CL, CO2, GLUCOSE, BUN, CREATININE, CA)2021-05-16 09:08:35 Test Item Value Reference Range Interpretation Comments NA (test code = 134 mmol/L 135-145 L 1874850327) K (test code = 4.3 mmol/L 3.5-5.0 1445406897) CL (test code = 98 mmol/L 98-108 2070959767) CO2 TOTAL (test code = 27 mmol/L 23-31 5273905773) AGAP (test code = 2-16 9976241538) BUN (test code = 28 mg/dL 7-23 H 0968721785) GLUCOSE (test code = 114 mg/dL 70-110 H 8960654027) CREATININE (test code = 4.79 mg/dL 0.50-1.04 H 3298760288) CALCIUM (test code = 8.2 mg/dL 8.6-10.6 L 5315620343) eGFR (test code = mL/min/1.73m2 6088188662) BRANDI (test code = BRANDI) Association of Glomerular Filtration Rate (GFR) and Staging of Kidney Disease* + --+ --+ ------+| GFR (mL/min/1.73 m2) ?| With Kidney Damage ?| ?Without Kidney Damage+ --------+ --------+ +| ?>90 ?| ?Stage one ?| ? Normal ?+ ---+ ---+ -------+| ?60-89 ?| ?Stage two ?| ? Decreased GFR ? + --+ --+ ------+| ?30-59 ?| ?Stage three ?| ? Stage three ? + --+ --+ ------+| ?15-29 ?| ?Stage four ? | ? Stage four ?+ ---+ ---+ -------+| ?<15 (or dialysis) ? ?| ?Stage five ? | ? Stage five ?+ ---+ ---+ -------+ *Each stage assumes the associated GFR level has been in effect for at least three months. ?Stages 1 to 5, with or without kidney disease, indicate chronic kidney disease. Notes: Determination of stages one and two (with eGFR >59mL/min/1.73 m2) requires estimation of kidney damage for at least three months as defined by structural or functional abnormalities of the kidney, manifested by either:Pathological abnormalities or Markers of kidney damage (including abnormalities in the composition of the blood or urine or abnormalities in imaging tests). Lab Interpretation Abnormal (test code = 66977-4) [facility] HospitalMagnesium [id number] 09:08:35 Test Item Value Reference Range Interpretation Comments MAGNESIUM (test code = 1172567483) 2.2 mg/dL 1.7-2.4 Lab Interpretation (test code = Normal 33683-4) [facility] HospitalTroponin [id number] 03:08:26 Test Item Value Reference Interpretation Comments Range TROPONIN I (test 0.019 ng/mL See_Comment [Automated code = 4103181801) message] The system which generated this result transmitted reference range : <=0.034. The reference range was not used to interpret this result as normal/abnormal . BRANDI (test code = Reference (Normal) BRANDI) Range (defined by the 99th percentile reference limit): <= 0.034 ng/mL Note: Cardiac troponin begins to rise 3-4 hours after the onset of ischemia. Repeat in 4-6 hours if the sample was drawn within 3-4 hours of the onset of the symptom and found normal. Diagnosis of myocardial injury is made with acute changes in cTn concentrations with at least one serial sample above the 99th percentile upper reference limit (URL), taken together with the patient's clinical presentation. Biotin has been reported to cause a negative bias, interpret results relative to patient's use of biotin. Lab Interpretation Normal (test code = 75234-6) [facility] HospitalPhosphorus [id number] 02:56:02 Test Item Value Reference Range Interpretation Comments PHOSPHORUS (test code = 0651569961) 4.5 mg/dL 2.5-5.0 Lab Interpretation (test code = Normal 00018-8) [facility]PO[facility])2021-05-16 02:28:15 Test Item Value Reference Range Interpretation Comments POCT GLU (test code = 3257066303) 155 mg/dL 70-110 H Lab Interpretation (test code = Abnormal 97848-6) [facility] HospitalThyroid Stimulating Hormone (TSH)2021-05-16 01:56:53 Test Item Value Reference Range Interpretation Comments TSH (test code = See_Comment [Automated message] 1696579930) The system [employer] generated this result transmitted ref erence range: 0.45 - 4 .70 mIU/L. The refe rence range was not u sed to interpret this result as normal/abnor mal. Lab Interpretation (test Normal code = 51563-5) [facility] HospitalGlycosylated Hemoglobin (A1C)2021-05-16 01:17:48 Test Item Value Reference Range Interpretation Comments HGB A1C (test code = 6.3 % 4.0-5.7 H 4548-4) BRANDI (test code = BRANDI) Reference RangesNormal: <5.7%Prediabetes: 5.7 - 6.4%Diabetes: > 6.5% Lab Interpretation (test Abnormal code = 41774-1) [facility] HospitalN-TERMINAL [id number] 20:42:55 Test Item Value Reference Range Interpretation Comments NT-proBNP (test code 648896 pg/mL See_Comment H [Autom ated = 4840762813) message] The system which generated this result transmitted reference range : <=125. The reference range was not used to interpret this result as normal/abnormal . BRANDI (test code = BRANDI) Biotin has been reported to cause a negative bias, interpret results relative to patient's use of biotin. Lab Interpretation Abnormal (test code = 53168-6) [facility] HospitalTROPONIN [id number] 20:28:40 Test Item Value Reference Interpretation Comments Range TROPONIN I (test 0.012 ng/mL See_Comment [Automated code = 2167534659) message] The system which generated this result transmitted reference range : <=0.034. The reference range was not used to interpret this result as normal/abnormal . BRANDI (test code = Reference (Normal) BRANDI) Range (defined by the 99th percentile reference limit): <= 0.034 ng/mL Note: Cardiac troponin begins to rise 3-4 hours after the onset of ischemia. Repeat in 4-6 hours if the sample was drawn within 3-4 hours of the onset of the symptom and found normal. Diagnosis of myocardial injury is made with acute changes in cTn concentrations with at least one serial sample above the 99th percentile upper reference limit (URL), taken together with the patient's clinical presentation. Biotin has been reported to cause a negative bias, interpret results relative to patient's use of biotin. Lab Interpretation Normal (test code = 26692-6) [facility] HospitalD-[id number] 20:27:34 Test Item Value Reference Interpretation Comments Range D-DIMER (test code = See_Comment H [Autom ated 8298398951) message] The system which generated this result transmitted reference range : <0.41 ?g/mL (FEU). The reference range was not used to interpret this result as normal/abnormal . BRANDI (test code = This test may be BRANDI) used in conjunction with a clinical pretest probability (PTP) assessment model to exclude venous thromboembolism (VTE) in patients suspected of deep venous thrombosis (DVT) and pulmonary embolism (PE) A D-Dimer value less than 0.50 ?g/ml (FEU) has a negative predicative value of 96 to 100% (95% CI)and 97 to 100% (95% CI) as an aid in the diagnosis of deep vein thrombosis (DVT) and pulmonary embolism when there is low or moderate pretest probability of PE or DVT. D-Dimer values are expressed in initial fibrinogen equivalent units (FEU)" The assay results should be used with other information, including the clinical context, in forming a diagnosis. Lab Interpretation Abnormal (test code = 87792-2) [facility] HospitalMAGNESIUM2022-02-11 20:17:56 Test Item Value Reference Range Interpretation Comments MAGNESIUM (test code = 9167150134) 1.9 mg/dL 1.7-2.4 Lab Interpretation (test code = Normal 97192-2) [facility]. METABOLIC PANEL (34918)2021-05-15 20:17:36 Test Item Value Reference Range Interpretation Comments NA (test code = 136 mmol/L 135-145 9467027076) K (test code = 4.2 mmol/L 3.5-5.0 3829383222) CL (test code = 99 mmol/L 98-108 4148036154) CO2 TOTAL (test code = 26 mmol/L 23-31 4004463802) AGAP (test code = 2-16 7227538957) BUN (test code = 24 mg/dL 7-23 H 5602943454) GLUCOSE (test code = 112 mg/dL 70-110 H 1237400808) CREATININE (test code = 3.82 mg/dL 0.50-1.04 H 5602474268) TOTAL BILI (test code = 1.0 mg/dL 0.1-1.6 1226174271) CALCIUM (test code = 8.5 mg/dL 8.6-10.6 L 1700097291) T PROTEIN (test code = 8.6 g/dL 6.3-8.2 H 7548395320) ALBUMIN (test code = 4.2 g/dL 3.5-5.0 1899080023) ALK PHOS (test code = 176 U/L 34-122 H 5430822622) ALTv (test code = 13 U/L 5-35 1742-6) AST(SGOT) (test code = 26 U/L 13-40 0051745840) eGFR (test code = mL/min/1.73m2 4921605652) BRANDI (test code = BRANDI) Association of Glomerular Filtration Rate (GFR) and Staging of Kidney Disease* + --+ --+ ------+| GFR (mL/min/1.73 m2) ?| With Kidney Damage ?| ?Without Kidney Damage+ --------+ --------+ +| ?>90 ?| ?Stage one ?| ? Normal ?+ ---+ ---+ -------+| ?60-89 ?| ?Stage two ?| ? Decreased GFR ? + --+ --+ ------+| ?30-59 ?| ?Stage three ?| ? Stage three ? + --+ --+ ------+| ?15-29 ?| ?Stage four ? | ? Stage four ?+ ---+ ---+ -------+| ?<15 (or dialysis) ? ?| ?Stage five ? | ? Stage five ?+ ---+ ---+ -------+ *Each stage assumes the associated GFR level has been in effect for at least three months. ?Stages 1 to 5, with or without kidney disease, indicate chronic kidney disease. Notes: Determination of stages one and two (with eGFR >59mL/min/1.73 m2) requires estimation of kidney damage for at least three months as defined by structural or functional abnormalities of the kidney, manifested by either:Pathological abnormalities or Markers of kidney damage (including abnormalities in the composition of the blood or urine or abnormalities in imaging tests). Lab Interpretation Abnormal (test code = 86842-9) [facility] HospitalLIPASE2022-[facility] 20:17:15 Test Item Value Reference Range Interpretation Comments LIPASE (test code = 8473157327) 125 U/L 0-220 Lab Interpretation (test code = Normal 24980-7) [facility] HospitalPROTHROMBIN TIME / [id number] 20:02:29 Test Item Value Reference Range Interpretation Comments PROTIME PATIENT (test See_Comment [Auto mated message] code = 5964-2) The system wh ich generated this result transmitted ref erence range: 12.0 - 1 4.7 Seconds. The re ference range was not u sed to interpret this result as normal/abnor mal. INR (test code = 6301-6) Nor mal INR <1.1; Warfarin Therap eutic range 2.0 to 3. 0 or 2.5 to 3.5, dep ending upon the indica tions. Lab Interpretation (test Normal code = 89560-9) [facility] HospitalCB WITH [id number] 19:52:47 Test Item Value Reference Range Interpretation Comments WBC (test code = See_Comment [Automated 6690-2) message] The sy stem which generated this result transmitted reference range : 4.30 - 11.10 10*3/?L. The reference range was not used to interpret this result as normal/abnormal . RBC (test code = See_Comment L [Automated 789-8) message] The sy stem which generated this result transmitted reference range : 3.93 - 5.25 10*6/?L. The reference range was not used to interpret this result as normal/abnormal . HGB (test code = 9.0 g/dL 11.6-15.0 L 718-7) HCT (test code = 28.0 % 35.7-45.2 L 4544-3) MCV (test code = 96.6 fL 80.6-95.5 H 787-2) MCH (test code = 31.0 pg 25.9-32.8 785-6) MCHC (test code = 32.1 g/dL 31.6-35.1 786-4) RDW-SD (test code = 52.6 fL 39.0-49.9 H 12311-7) RDW-CV (test code = 15.0 % 12.0-15.5 788-0) PLT (test code = See_Comment L [Automated 777-3) message] The sy stem which generated this result transmitted reference range : 166 - 358 10*3/ ?L. The reference r alba was not used to interpret this result as normal/abnormal . MPV (test code = 10.9 fL 9.5-12.9 15707-6) NRBC/100 WBC (test See_Comment [Automat ed code = 9421687408) message] The system which generated this result transmitted reference range : 0.0 - 10.0 /100 WBCs. The refer ence range was not u sed to interpret th is result as normal/abnormal . NRBC x10^3 (test code <0.01 See_Comment [Auto mated = 5271684089) message] The s ystem which generated this result transmitted reference range : 10*3/?L. The reference range was not used to interpret this result as normal/abnormal . GRAN MAT (NEUT) % 74.8 % (test code = 770-8) IMM GRAN % (test code 0.60 % = 6630269733) LYMPH % (test code = 12.4 % 736-9) MONO % (test code = 8.7 % 5905-5) EOS % (test code = 2.6 % 713-8) BASO % (test code = 0.9 % 706-2) GRAN MAT x10^3(ANC) 4.06 10*3/uL 1.88-7.09 (test code = 9546549391) IMM GRAN x10^3 (test 0.03 10*3/uL 0.00-0.06 code = 8611300936) LYMPH x10^3 (test code 0.67 10*3/uL 1.32-3.29 L = 731-0) MONO x10^3 (test code 0.47 10*3/uL 0.33-0.92 = 742-7) EOS x10^3 (test code = 0.14 10*3/uL 0.03-0.39 711-2) BASO x10^3 (test code 0.05 10*3/uL 0.01-0.07 = 704-7) Lab Interpretation Abnormal (test code = 02826-6) [facility]
[2021-06-04] MEDS ORDERED: FENTANYL CITR 100 MCG/2 ML ONE (20:35)
[2021-06-04] MEDS ORDERED: ONDANSETRON 4 MG/2 ML VIAL ONE (20:35)
[2021-06-04 20:38] LABS: Absolute Lymphocytes (CBC) 1.1 K/uL (0.7-4.9); Hematocrit 22.9 % (36.0-45.0); Lymphocytes % 29.1 % (15.3-44.8); RBC Red Blood Cell Count 2.48 M/uL (3.86-4.86)
[2021-06-04 20:39] LABS: Protime INR 1.06
--- NOTE | 2021-06-04 20:50 | RAD REPORT ---
EXAM DESCRIPTION: RAD - Chest Single View - 06/04/2021 8:31 pm CLINICAL HISTORY: CHEST PAIN COMPARISON: Portable 03/11/2021 TECHNIQUE: AP portable chest image was obtained 06/04/2021 8:31 pm . FINDINGS: Lung volumes are low. No peripheral mass consolidation. Prominent interstitial pattern is similar or less prominent than seen previously. Mild cardiomegaly present. Vasculature within range o f normal. Two lead pacemaker in place via right subclavian approach. Sternotomy wires are in place. N o measurable pleural effusion and no pneumothorax. No acute bony abnormality seen. No acute aortic fi ndings suspected. IMPRESSION: No peripheral mass or consolidation. No significant failure or volume overload [place] Interstitial markings are prominent but diminished compared to prior study.
[2021-06-04 20:52] LABS: Arterial Blood Carboxyhemoglob 2.1 % (0-1.5); Blood Gas Oxyhemoglobin 96.5 % (94-97); Blood O2 Saturation 99.5 % (92-98.5)
[2021-06-04 21:07] LABS: BUN Blood Urea Nitrogen 32 mg/dL (7-18); Bicarbonate 24 mmol/L (21-32); Glucose Level 381 mg/dL (74-106); Magnesium 2.1 mg/dL (1.8-2.4); Potassium 3.4 mmol/L (3.5-5.1); Sodium Level 131 mmol/L (136-145)
[2021-06-04 21:16] LABS: Anisocytosis SLIGHT; Blood Morphology Comment NOTED (NOT SEEN); Platelet Estimate DECR
[2021-06-04 21:19] LABS: SARS-COV-2 RT PCR NEGATIVE (NEGATIVE)
[2021-06-04 21:28] LABS: ALT/SGPT 18 U/L (12-78); Albumin 2.6 g/dL (3.4-5.0); Alkaline Phosphatase 119 U/L (45-117); Bilirubin Direct 0.2 mg/dL (0-0.2); Bilirubin Total 0.6 mg/dL (0.2-1.0); NT PRO-BNP > 35000 pg/mL (<125)
[2021-06-04 21:29] LABS: AST/SGOT 22 U/L (15-37)
--- NOTE | 2021-06-04 22:01 | EDPHYS ---
Physician Documentation [facility] Name: Qiana Valdez Age: 65 yrs Sex: Female : 1955 Arrival Date: 06/04/2021 Time: 20:03 Bed 3 Private MD: ED Physician Marta Machuca HPI: 06/04 20:15 This 65 yrs old Female presents to ER via Wheelchair with complaints of Chest cp Pain. 20:15 The patient or guardian reports chest pain that is located primarily in the substernal cp area. 20:15 Onset: today. The pain radiates to Associated signs and symptoms: Pertinent positives: cp shortness of breath, syncope, Pertinent negatives: abdominal pain, diaphoresis, dizziness, lower extremity pain, lower extremity swelling. The chest pain is described as constant. Duration: The patient or guardian reports a single episode, that is still ongoing, and unchanged. Historical: - PMHx: 20:39 Chronic ischemic heart disease; Diabetes - IDDM; DIALYSIS MWF; ESRD; GERD; High ph Cholesterol; hyperparathyroidism; Hypertension; IRON DEFICIENCY ANEMIA; Myocardial infarction; Pacemaker; - Immunization history:: Adult Immunizations up to date, Client reports receiving the 2nd dose of the Covid vaccine. - Social history:: Smoking status: unknown. ROS: 20:20 Constitutional: Negative for body aches, chills, fever, poor PO intake. cp 20:20 Cardiovascular: Positive for chest pain, Negative for edema, palpitations. cp 20:20 Eyes: Negative for injury, pain, redness, and discharge. cp 20:20 Neck: Negative for pain with movement, pain at rest, stiffness. 20:20 Respiratory: Positive for shortness of breath, at rest. Negative for cough, wheezing. 20:20 Abdomen/GI: Negative for abdominal pain, vomiting, diarrhea, constipation. 20:20 Back: Positive for radiated pain. 20:20 Neuro: Positive for syncope, Negative for altered mental status, headache, weakness. 20:20 All other systems are negative. Exam: 20:02 ECG was reviewed by the Attending Physician. cp 20:25 Constitutional: The patient appears alert, awake, non-diaphoretic, non-toxic, well cp developed, in obvious distress, mildly distressed. 20:25 Head/Face: Normocephalic, atraumatic. cp 20:25 Eyes: Periorbital structures: appear normal, Pupils: equal, round, and reactive to light and accomodation, Extraocular movements: intact throughout, Conjunctiva: normal, no exudate, no injection, Sclera: no appreciated abnormality, Lids and lashes: appear normal, bilaterally. 20:25 ENT: External ear(s): are unremarkable, Nose: is normal, Mouth: Lips: moist, Oral mucosa: moist, Posterior pharynx: Airway: no evidence of obstruction, patent. 20:25 Neck: ROM/movement: is normal, is supple, without pain, no range of motions limitations. 20:25 Chest/axilla: Inspection: normal, Palpation: is normal, no crepitus, no tenderness. 20:25 Cardiovascular: Rate: normal, Rhythm: regular, Edema: is not appreciated, JVD: is not appreciated. 20:25 Respiratory: the patient does not display signs of respiratory distress, Respirations: normal, no use of accessory muscles, no retractions, labored breathing, is not present, Breath sounds: are clear throughout, no decreased breath sounds, no stridor, no wheezing. 20:25 Abdomen/GI: Inspection: abdomen appears normal, Palpation: abdomen is soft and non-tender, in all quadrants. 20:25 Neuro: Orientation: to person, Mentation: able to follow commands, slow to respond, confused, Motor: moves all fours, Sensation: no obvious gross deficits. Vital Signs: 20:55 BP 118 / 59 LA; Pulse 60; Resp 20; Temp 97.6(O); Pulse Ox 100% ; lt3 21:23 BP 119 / 59; Pulse 62; Resp 17; Pulse Ox 100% on 4 lpm NC; ph 22:37 BP 124 / 57; Pulse 66; Resp 17; Pulse Ox 100% on 4 lpm NC; kd3 MDM: 20:17 Patient medically screened. cp 21:00 Differential diagnosis: abnormal EKG, acute myocardial infarction, cholecystitis, cp Cholelithiasis pancreatitis, pericarditis, pleurisy, pneumonia, pneumothorax, stable angina, thoracic aortic disection, unstable angina. 22:00 The patient was given aspirin in the Emergency Department. cp 22:00 Data reviewed: vital signs, nurses notes, lab test result(s), EKG, radiologic studies, cp plain films. Test interpretation: by ED physician or midlevel provider: ECG, plain radiologic studies. Counseling: I had a detailed discussion with the patient and/or guardian regarding: the historical points, exam findings, and any diagnostic results supporting the discharge/admit diagnosis, lab results, radiology results, the need for further work-up and treatment in the hospital. Physician consultation: Talha Stern was called at 22:00, was contacted at 22:00, regarding admission, to the telemetry unit. patient's condition. 06/04 20:12 Order name: Basic Metabolic Panel; Complete Time: 21:52 cp 06/04 21:14 Interpretation: Normal except: NA 131; K 3.4; CL 95; GLUC 381; BUN 32; CRE 4.30; GFR cp 10; CA 8.4. 06/04 20:12 Order name: CBC with Diff; Complete Time: 21:52 cp 06/04 20:12 Order name: LFT's; Complete Time: 21:52 cp 06/04 20:12 Order name: Magnesium; Complete Time: 21:52 cp 06/04 20:12 Order name: NT PRO-BNP; Complete Time: 21:52 cp 06/04 20:12 Order name: PT-INR; Complete Time: 21:14 cp 06/04 20:12 Order name: Troponin HS; Complete Time: 21:52 cp 06/04 20:12 Order name: XRAY Chest (1 view); Complete Time: 21:14 cp 06/04 20:26 Order name: COVID-19/FLU A+B (Document "Date of Onset" if Symptomatic); Complete Time: cs9 21:52 06/04 20:45 Order name: ABG; Complete Time: 21:14 cs9 06/04 20:47 Order name: Manual Differential; Complete Time: 21:52 EDMS 06/04 20:12 Order name: EKG; Complete Time: 20:12 cp 06/04 20:12 Order name: Cardiac monitoring; Complete Time: 20:29 cp 06/04 20:12 Order name: EKG - Nurse/Tech; Complete Time: 20:29 cp 06/04 20:12 Order name: IV Saline Lock; Complete Time: 20:29 cp 06/04 20:12 Order name: Labs collected and sent; Complete Time: 20:37 cp 06/04 20:12 Order name: O2 Per Protocol; Complete Time: 20:30 cp 06/04 20:12 Order name: O2 Sat Monitoring; Complete Time: 20:30 cp EC:02 Rate is 60 beats/min. Rhythm is regular. AR interval is normal. QRS interval is cp prolonged at 102 msec. QT interval is prolonged at 534 msec. T waves are Inverted in leads I, II, aVL, V2, V3, V4, V5, V6. Interpreted by me. Reviewed by me. Administered Medications: 20:37 Drug: fentaNYL (PF) 25 mcg Route: IVP; Site: left forearm; ph 22:39 Follow up: Response: No adverse reaction; Pain is decreased kd3 20:37 Drug: Zofran (Ondansetron) 4 mg Route: IVP; Site: left forearm; ph 22:39 Follow up: Response: No adverse reaction; Nausea is decreased kd3 22:23 CANCELLED (Other Intervention Used): Lovenox (enoxaparin) 1 mg/kg Sub-Q once kd3 22:36 Drug: Aspirin Chewable Tablet 324 mg Route: PO; kd3 23:45 Follow up: Response: No adverse reaction kd3 Disposition Summary: 06/04/21 22:01 Hospitalization Ordered Hospitalization Status: Inpatient Admission cp Provider: Doron Lau cp Location: Telemetry/MedSurg (Inpatient) cp Condition: Stable cp Problem: new cp Symptoms: have improved cp Bed/Room Type: Standard Room Assignment: 421(06/04/21 23:24) cg Diagnosis - Subsequent non-ST elevation (NSTEMI) myocardial infarction cp Forms: - Medication Reconciliation Form cp - SBAR form cp Signatures: Dispatcher [employer] Lacey Gracia RN RN ph Duane Whyte, GRICELDA PA cp Brianna Costello RN RN cg Isabel Rosado RN RN kd3 Corrections: (The following items were deleted from the chart) : 22:00 Lovenox (enoxaparin) 1 mg/kg Sub-Q once ordered. cp kd3 23:24 22:01 cp cg
--- NOTE | 2021-06-04 22:01 | ER ---
Nurse's Notes [facility] Name: Qiana Valdez Age: 65 yrs Sex: Female : 1955 Arrival Date: 06/04/2021 Time: 20:03 Bed 3 Private MD: Diagnosis: Subsequent non-ST elevation (NSTEMI) myocardial infarction Presentation: 06/04 20:05 Chief complaint: Patient states: she is having chest pain. Pt was brought by family for bb complaint of chest pain they said she passed out in the car. Coronavirus screen: At this time, the client does not indicate any symptoms associated with coronavirus-19. Ebola Screen: No symptoms or risks identified at this time. 20:05 Method Of Arrival: Wheelchair bb 20:56 Initial Sepsis Screen: Does the patient meet any 2 criteria? No. Patient's initial ph sepsis screen is negative. Does the patient have a suspected source of infection? No. Patient's initial sepsis screen is negative. Risk Assessment: Do you want to hurt yourself or someone else? Patient reports no desire to harm self or others. Onset of symptoms. 20:56 Acuity: SIXTO 3 ph Triage Assessment: 20:56 General: Behavior is calm, cooperative, drowsy. Pain: Complains of pain in chest. ph Historical: - PMHx: 20:39 Chronic ischemic heart disease; Diabetes - IDDM; DIALYSIS MWF; ESRD; GERD; High ph Cholesterol; hyperparathyroidism; Hypertension; IRON DEFICIENCY ANEMIA; Myocardial infarction; Pacemaker; - Immunization history:: Adult Immunizations up to date, Client reports receiving the 2nd dose of the Covid vaccine. - Social history:: Smoking status: unknown. Screenin:54 Abuse screen: Denies threats or abuse. Denies injuries from another. Nutritional ph screening: No deficits noted. Tuberculosis screening: No symptoms or risk factors identified. Fall Risk IV access (20 points). Assessment: 20:38 General: Appears uncomfortable, ill. Pain:. Cardiovascular: Rhythm is Respiratory: ph Airway is patent Respiratory effort is even, unlabored. 20:57 Pain: Pain does not radiate. Pain began suddenly. ph 22:37 Reassessment: Patient and/or family updated on plan of care and expected duration. Pain kd3 level reassessed. Patient is alert, oriented x 3, equal unlabored respirations, skin warm/dry/pink. Patient states feeling better. Patient states symptoms have improved. 03 00:02 Reassessment: Patient and/or family updated on plan of care and expected duration. Pain kd3 level reassessed. Patient is alert, oriented x 3, equal unlabored respirations, skin warm/dry/pink. Patient states feeling better. Patient states symptoms have improved. Vital Signs: 06/04 20:55 BP 118 / 59 LA; Pulse 60; Resp 20; Temp 97.6(O); Pulse Ox 100% ; lt3 21:23 BP 119 / 59; Pulse 62; Resp 17; Pulse Ox 100% on 4 lpm NC; ph 22:37 BP 124 / 57; Pulse 66; Resp 17; Pulse Ox 100% on 4 lpm NC; kd3 ED Course: 20:03 Patient arrived in ED. bb 20:11 Duane Whyte PA is PHCP. cp 20:11 Marta Machuca MD is Attending Physician. cp 20:29 Lacey Saenz, RN is Primary Nurse. ph 20:30 XRAY Chest (1 view) Sent. ph 20:31 XRAY Chest (1 view) In Process Unspecified. EDMS 20:37 COVID-19/FLU A+B (Document "Date of Onset" if Symptomatic) Sent. ph 20:54 Inserted saline lock: 20 gauge in left forearm, using aseptic technique. Oxygen ph administration via nasal cannula \\T\\ 4L/min. 20:54 Patient has correct armband on for positive identification. Placed in gown. Bed in low ph position. hall monitor on. Pulse ox on. NIBP on. 20:56 Triage completed. ph 20:56 No provider procedures requiring assistance completed. ph 20:58 Arm band placed on right wrist. ph 21:31 Notified Nurse Practitioner and/or Physician Construction Assistant of a critical lab result(s), bb troponin of 403.7. Duane Whyte PA notified. 22:00 Doron Lau MD is Hospitalizing Provider. cp 23:46 Patient admitted, IV remains in place. kd3 Administered Medications: 20:37 Drug: fentaNYL (PF) 25 mcg Route: IVP; Site: left forearm; ph 22:39 Follow up: Response: No adverse reaction; Pain is decreased kd3 20:37 Drug: Zofran (Ondansetron) 4 mg Route: IVP; Site: left forearm; ph 22:39 Follow up: Response: No adverse reaction; Nausea is decreased kd3 22:23 CANCELLED (Other Intervention Used): Lovenox (enoxaparin) 1 mg/kg Sub-Q once kd3 22:36 Drug: Aspirin Chewable Tablet 324 mg Route: PO; kd3 23:45 Follow up: Response: No adverse reaction kd3 Outcome: 22:01 Decision to Hospitalize by Provider. cp 23:29 Admitted to Med/surg Report called to attempted to call report to 4th floor kd3 23:44 Admitted to Med/surg Report called to nurse MIKEY kd3 23:46 Condition: stable kd3 03 00:04 Patient left the ED. kd3 Signatures: Dispatcher [employer] EDMei Dwyer RN RN bb Hall, Patricia RN RN ph Duane Whyte PA PA cp Doucette, Kyli RN RN kd3 Cintia Smith 3 Corrections: (The following items were deleted from the chart) 06/04 20:07 20:05 Chief complaint: ruby beltran
[2021-06-04] MEDS ORDERED: ASPIRIN 81 MG CHEWABLE TABLET ONE (22:37)
--- NOTE | 2021-06-04 23:51 | P.HP ---
Certification for Inpatient Patient admitted to: Observation With expected LOS: <2 Midnights Patient will require the following post-hospital care: None Practitioner: I am a practitioner with admitting privileges, knowledge of patient current condition, hospital course, and medical plan of care. Services: Services provided to patient in accordance with Admission requirements found in Title 42 Section 412.3 of the Code of Federal Regulations Patient History Date of Service: 06/04/21 Reason for admission: Chest pain, syncope History of Present Illness: 65-year-old female with history of CAD, ESRD on HD, diabetes mellitus type 2insulin-dependent, hypertension, hyperlipidemia, anemia presents the emergency department for chest pain, syncope. Patient reports that that evening she was developing some pressure-like chest pain nonradiating with associated shortness of breath, patient was brought to the ER by her family who report that she had a syncopal episode in the vehicle where she was not responding to them. Patient was evaluated in the emergency department she did have mild elevation in her high-sensitivity troponin level of 403.7 BNP was elevated as well. Patient is pancytopenic which she has been in the past, hemoglobin 7.8 hematocrit 22.9. Patient denies any melena, hematochezia, hematemesis. EKG was without ST elevation chest x-ray demonstrated prominent interstitial markings. ED provider wishes to admit for further evaluation and management of chest pain, syncope, anemia. Allergies No Known Allergies Allergy (Verified 03/09/21 23:52) Home Medications: Aspirin 81 mg PO DAILY 07/15/20 Atorvastatin Calcium [Lipitor] 80 mg PO BEDTIME 07/15/20 Calcium Carbonate [Tums Regular*] 500 mg PO TID PRN 07/15/20 Emla 1 appl TOP SEECOM 07/15/20 Lactulose 30 gm PO DAILYPRN PRN 07/15/20 Metoclopramide [Reglan*] 5 mg PO TIDWM 07/15/20 NIFEdipine [Nifedipine ER] 60 mg PO DAILY 07/15/20 Pantoprazole [Protonix Tab*] 40 mg PO DAILY 07/15/20 Sennosides/Docusate Sodium [Senexon-S 50-8.6 mg Tablet] 1 each PO BID 07/15/20 Sucroferric Oxyhydroxide [Velphoro] 500 mg PO TIDWM 07/15/20 Vit B Comp C/Folic Acid/Vit D3 [Dialyvite 800 Plus D Wafer] 1 each PO DAILY 07/15/20 Vitamin E 400 unit PO DAILY 07/15/20 Clopidogrel Bisulfate [Plavix*] 75 mg PO DAILY #30 tablet 12/30/20 Hydralazine HCl [Apresoline] 75 mg PO BID #90 03/10/21 Isosorbide Mononitrate [Isosorbide Mononitrate ER] 60 mg PO DAILY #60 03/10/21 carvediloL [Coreg*] 25 mg PO BID 6AM 6PM #60 tab 03/10/21 - Past Medical/Surgical History Diabetic: Yes -: Hypertension -: Diabetes mellitus type 2 insulin-dependent -: ESRD - MWF -: Nonfuctioning LLE fistula -: Hyperlipidemia -: GERD -: CAD with prior stent, CABG -: Hyperparathyroidism -: Anemia of chronic disease with iron deficiency -: Diabetic neuropathy -: COVID-19 01/21/2020 -: Triple bypass 2016 -: Pacemaker -: Tubal ligation -: Fistula aneursym reconstruction 4 times -: Bilateral cataract surgery Psychosocial/ Personal History: Lives at home - Family History Mother -: Heart disease - Social History Alcohol use: No CD- Drugs: No Caffeine use: Yes Place of Residence: Home Review of Systems 10-point ROS is otherwise unremarkable Respiratory: Shortness of Breath, As per HPI Cardiovascular: Chest Pain, As per HPI Physical Examination - Physical Exam General: Alert, In no apparent distress, Oriented x3 HEENT: Atraumatic, PERRLA, Mucous membr. moist/pink, EOMI, Sclerae nonicteric Neck: Supple, 2+ carotid pulse no bruit, No LAD, Without JVD or thyroid abnormality Respiratory: Diminished Cardiovascular: Regular rate/rhythm, Normal S1 S2 Gastrointestinal: Normal bowel sounds, No tenderness Musculoskeletal: No tenderness Integumentary: No rashes Neurological: Normal speech, Normal strength at 5/5 x4 extr, Normal tone, Normal affect - Studies Laboratory Data (last 24 hrs) 06/04/21 20:20: PT 12.2, INR 1.06 06/04/21 20:20: WBC 3.90 L, Hgb 7.8 L, Hct 22.9 L, Plt Count 76 L 06/04/21 20:20: Sodium 131 L, Potassium 3.4 L, BUN 32 H, Creatinine 4.30 H, Glucose 381 H, Magnesium 2.1, Total Bilirubin 0.6, AST 22, ALT 18, Alkaline Phosphatase 119 H Assessment and Plan - Plan Assessment: Chest pain rule out ACS history CAD status post CABG, pacemaker ESRD on HD MWF Diabetes mellitus type 2insulin-dependent Hypertension Hyperlipidemia Iron deficiency anemia Thrombocytopenia Plan: Chest pain rule out ACS history CAD status post CABG, pacemaker: Monitor on telemetry, trend troponins. Cardiology consulted. Will obtain echocardiogram. Patient pain-free at time of my examination. ESRD on HD MWF: Nephrology to be consulted. Diabetes mellitus type 2insulin-dependent: ACH is Accu-Chek, sliding scale insulin Hypertension: Obtain and continue home medication Hyperlipidemia:Obtain and continue home medication Iron deficiency anemia: We will repeat hemoglobin level, patient may benefit from blood transfusion given her chest pain and syncopal episode. We will also discuss with nephrology as she is due for dialysis in the morning. Patient noted to have low white blood cell count, platelet and hemoglobin/hematocrit, will discuss this with patient to determine if she had any further work-up. Will recommend follow-up with hematology for further evaluation as well. Thrombocytopenia: Continue as above hold off on heparin/Lovenox given thrombocytopenia. DVT PPX: SCD given thrombocytopenia, anemia Code status: Full Discharge Plan: Home Plan to discharge in: 24 Hours - Advance Directives Does patient have a Living Will: No Does patient have a Durable POA for Healthcare: No - Code Status/Comfort Care Code Status Assessed: Yes (Full code) Critical Care: No Time Spent Managing Pts Care (In Minutes): 55
[2021-06-05 01:10] VITALS: BMI 25.8
[2021-06-05] MEDS ORDERED: ONDANSETRON 4 MG/2 ML VIAL IV PRN (05:23)
[2021-06-05] MEDS ORDERED: MORPHINE 2 MG/ML SYR IV PRN (05:23)
[2021-06-05] MEDS: METOPROLOL TAR 25 MG TAB PO SCH ×2 (06:00→17:13)
[2021-06-05 06:10] LABS: Absolute Lymphocytes (CBC) 0.7 K/uL (0.7-4.9); Hematocrit 22.8 % (36.0-45.0); Lymphocytes % 18.5 % (15.3-44.8); RBC Red Blood Cell Count 2.41 M/uL (3.86-4.86)
[2021-06-05 06:32] LABS: Albumin 2.3 g/dL (3.4-5.0); Bilirubin Total 0.4 mg/dL (0.2-1.0); Potassium 3.3 mmol/L (3.5-5.1)
[2021-06-05 06:33] LABS: Ferritin 754.1 ng/mL (8-388)
[2021-06-05 06:40] LABS: Troponin High Sensitivity 360.2 pg/mL (<58.9)
[2021-06-05] MEDS ORDERED: NA CHLORIDE 0.9% 250 ML IV SCH (07:00)
[2021-06-05] MEDS ORDERED: PNEUMOCOCCAL VACCINE 0.5 ML IMVAC ONE (08:00)
[2021-06-05] MEDS: ASPIRIN EC 81 MG TAB PO SCH (08:21)
[2021-06-05] MEDS: CLOPIDOGREL 75 MG TABLET PO SCH (08:21)
[2021-06-05] MEDS: INSULIN -REGULAR HUMAN 50 UNIT/0.5 ML ML SQ SCH ×4 (08:21→20:58)
[2021-06-05 09:15] LABS: Blood Morphology Comment NOTED (NOT SEEN); Platelet Estimate DECR
[2021-06-05 09:16] LABS: Anisocytosis 1+; Rouleau SLIGHT
--- NOTE | 2021-06-05 11:31 | EKG ---
Test Date: 2021-06-04 Test Time: 19:55:55 Supervisor Extrusion: ANGELA MEASUREMENT RESULTS: Intervals: Rate: 60 IL: 176 QRSD: 102 QT: 534 QTc: 534 Vernalis: P: 27 IL: 176 QRS: 22 T: 188 INTERPRETIVE STATEMENTS: Normal sinus rhythm Incomplete right bundle branch block ST & T wave abnormality, consider inferior ischemia ST & T wave abnormality, consider anterolateral ischemia Prolonged QT Abnormal ECG Compared to ECG 03/20/2021 10:39:51 Incomplete right bundle-branch block now present ST (T wave) deviation still present Possible ischemia still present Electronically Signed On 06-05-21 11:28:58 RESEARCH HYDROLOGIST by Papi Mi
--- NOTE | 2021-06-05 11:39 | ECHO ---
HEIGHT: 5 ft 3 in WEIGHT: 146 lb 0 oz DATE OF STUDY: 06/05/[address]: Talha Stern NP 2-DIMENSIONAL: YES M.MODE: YES DOPPLER: YES COLOR FLOW: YES TDS: NO PORTABLE: NO DEFINITY: NO BUBBLE STUDY: NO DIAGNOSIS: CHEST PAIN, SYNCOPE, ELEVATED TROPONIN CARDIAC HISTORY: CATHERIZATION: SURGERY: PROSTHETIC VALVE: PACEMAKER: MEASUREMENTS (cm) DIASTOLIC (NORMALS) SYSTOLIC (NORMALS) IVSd 1.2 (0.6-1.2) LA Diam 4.8 (1.9-4.0) LVEF 62% LVIDd 4.0 (3.5-5.7) LVIDs 2.7 (2.0-3.5) %FS 33% LVPWd 1.3 (0.6-1.2) Ao Diam 2.7 (2.0-3.7) 2 DIMENSIONAL ASSESSMENT: RIGHT ATRIUM: NORMAL LEFT ATRIUM: DILATED RIGHT VENTRICLE: NORMAL LEFT VENTRICLE: NORMAL TRICUSPID VALVE: NORMAL MITRAL VALVE: POSSIBLE VEGETATION PULMONIC VALVE: NORMAL AORTIC VALVE: NORMAL PERICARDIAL EFFUSION: NONE AORTIC ROOT: NORMAL LEFT VENTRICULAR WALL MOTION: NORMAL. DOPPLER/COLOR FLOW: SEVERE PULMONARY HYPERTENSION. COMMENTS: NORMAL LEFT VENTRICULAR EJECTION FRACTION. POSSIBLE MITRAL VALVE VEGETATION. LEFT ATRIAL ENLARGEMENT. SEVERE PULMONARY HYPERTENSION. TECHNOLOGIST: CHIP KELLY
--- NOTE | 2021-06-05 12:44 | P.CNS ---
Date of Consult: 06/05/21 Reason for Consult: Fluid nd electrolytes management Chief Complaint: Chest pain, syncope History of Present Illness: A 65-year-old female, with past medical history of end-stage renal disease on dialysis Tuesday, Tuesday, Tuesday, hypertension; diabetes complicated with neuropathy and nephropathy; hyperlipidemia; Hx of COVID pneumonia ; renal artery stenosis, status post stenting and CAD Pt completed HD on Tuesday with 2 liter removal as per pt, yesterday pt was complaining of SOB and developed chest pain, family reporting that pt had syncope episode labs showed levated troponin with pancytopenia , ROS General : denies fever, chills, WT change weakness, insomnia HEENT: Denies dry, vision changes and headache Resp: SOB, denied cough or wheezes Cardiovascular: : chest pain, denied palpitation GI: denies abdominal pain, diarrhea or constipation : denies dysuria, urgency, foamy urine or blood tinged urine Muscloskeltal: denies muscle aches, joint pain Endo: denies polyuria and and polydipsia Extre: denies pain numbness and swelling Physical exam General: AAOx3, in mild distress CHEST; CTAB, basal rales HEART : RRR. Normal S1,2 no murmur or rub Abd: soft, Nt Ext: no edema Skin : No rash ESRD on HD MWF HD today , UF 2-3 liters renal diet renal dose meds Pulmonary edema HD today Hypokalemia will dialyze with high potassium bath Acute on chronic anemia Hb 10 in March will start epogen iron sat 49% , not candidate for IV iron paln for 1 PRBC with HD today Pancytopenia will hold hydralazine Hematology as an OP NSTEMI trend troponin Cardiology evaluation Allergies No Known Allergies Allergy (Verified 03/09/21 23:52) Home Medications: Aspirin 81 mg PO DAILY 07/15/20 Atorvastatin Calcium [Lipitor] 80 mg PO BEDTIME 07/15/20 Calcium Carbonate [Tums Regular*] 500 mg PO TID PRN 07/15/20 Emla 1 appl TOP SEECOM 07/15/20 Lactulose 30 gm PO DAILYPRN PRN 07/15/20 Metoclopramide [Reglan*] 5 mg PO TIDWM 07/15/20 NIFEdipine [Nifedipine ER] 60 mg PO DAILY 07/15/20 Pantoprazole [Protonix Tab*] 40 mg PO DAILY 07/15/20 Sennosides/Docusate Sodium [Senexon-S 50-8.6 mg Tablet] 1 each PO BID 07/15/20 Sucroferric Oxyhydroxide [Velphoro] 500 mg PO TIDWM 07/15/20 Vit B Comp C/Folic Acid/Vit D3 [Dialyvite 800 Plus D Wafer] 1 each PO DAILY 07/15/20 Vitamin E 400 unit PO DAILY 07/15/20 Clopidogrel Bisulfate [Plavix*] 75 mg PO DAILY #30 tablet 12/30/20 Isosorbide Mononitrate [Isosorbide Mononitrate ER] 60 mg PO DAILY #60 03/10/21 carvediloL [Coreg*] 25 mg PO BID 6AM 6PM #60 tab 03/10/21 Hydralazine HCl [Apresoline] 75 mg PO TID 06/05/21 Nitroglycerin 0.4 mg PO 1X PRN 06/05/21 - Past Medical/Surgical History Diabetic: Yes -: Hypertension -: Diabetes mellitus type 2 insulin-dependent -: ESRD - MWF -: Nonfuctioning LLE fistula -: Hyperlipidemia -: GERD -: CAD with prior stent, CABG -: Hyperparathyroidism -: Anemia of chronic disease with iron deficiency -: Diabetic neuropathy -: COVID-19 01/21/2020 -: Triple bypass 2016 -: Pacemaker -: Tubal ligation -: Fistula aneursym reconstruction 4 times -: Bilateral cataract surgery Psychosocial/ Personal History: Lives at home - Family History Mother Medical History: Heart disease - Social History Smoking Status: Unknown if ever smoked Alcohol use: No CD- Drugs: No Caffeine use: Yes Place of Residence: Home Physical Examination Temp Pulse Resp BP Pulse Ox 99.1 F 67 18 169/81 H 92 06/05/21 12:00 06/05/21 12:00 06/05/21 12:00 06/05/21 12:00 06/05/21 12:00 Laboratory Data (last 24 hrs) 06/04/21 20:20: PT 12.2, INR 1.06 06/04/21 20:20: WBC 3.90 L, Hgb 7.8 L, Hct 22.9 L, Plt Count 76 L 06/04/21 20:20: Sodium 131 L, Potassium 3.4 L, BUN 32 H, Creatinine 4.30 H, Glucose 381 H, Magnesium 2.1, Total Bilirubin 0.6, AST 22, ALT 18, Alkaline Phos phatase 119 H
[2021-06-05] MEDS ORDERED: VANCOMYCIN 1.75 GM in NA CHLORIDE 0.9% 500 ML IVPB SCH (14:00)
[2021-06-05] MEDS ORDERED: VANCOMYCIN 1.25 GM in NA CHLORIDE 0.9% 250 ML IVPB ONE ×2 (14:00→21:00)
[2021-06-05] MEDS ORDERED: NA CHLORIDE 0.9% 250 ML ONE (14:10)
--- NOTE | 2021-06-05 16:02 | P.CNS ---
Date of Consult: 06/05/21 Chief Complaint: Chest pain, syncope History of Present Illness: The patient is a 65-year-old female with a past medical history of CAD status post pacemaker/bypass surgery, ESRD on HD, diabetes type 2 insulin-dependent, hypertension, hyperlipidemia, and anemia who presented to the emergency department secondary to chest pain and shortness of breath. Patient states that the chest pain had all been ongoing for 1 day. States that she has had 3 heart attacks in the past and this specific chest pain felt very similar to her [place] type chest pain that she has previously experienced. Chest x-ray showed no acute findings, echocardiogram showed possible mitral valve endocarditis. Blood cultures pending. Patient Peraglie placed on vancomycin and Rocephin. Of note patient is also pancytopenic, without clear reason why. Patient currently reports shortness of breath, states that her chest pain has subsided. Denies nausea/vomiting/diarrhea. Currently aerating well on 2 L oxygen via nasal cannula. Allergies No Known Allergies Allergy (Verified 03/09/21 23:52) Home Medications: Aspirin 81 mg PO DAILY 07/15/20 Atorvastatin Calcium [Lipitor] 80 mg PO BEDTIME 07/15/20 Calcium Carbonate [Tums Regular*] 500 mg PO TID PRN 07/15/20 Emla 1 appl TOP SEECOM 07/15/20 Lactulose 30 gm PO DAILYPRN PRN 07/15/20 Metoclopramide [Reglan*] 5 mg PO TIDWM 07/15/20 NIFEdipine [Nifedipine ER] 60 mg PO DAILY 07/15/20 Pantoprazole [Protonix Tab*] 40 mg PO DAILY 07/15/20 Sennosides/Docusate Sodium [Senexon-S 50-8.6 mg Tablet] 1 each PO BID 07/15/20 Sucroferric Oxyhydroxide [Velphoro] 500 mg PO TIDWM 07/15/20 Vit B Comp C/Folic Acid/Vit D3 [Dialyvite 800 Plus D Wafer] 1 each PO DAILY 07/15/20 Vitamin E 400 unit PO DAILY 07/15/20 Clopidogrel Bisulfate [Plavix*] 75 mg PO DAILY #30 tablet 12/30/20 Isosorbide Mononitrate [Isosorbide Mononitrate ER] 60 mg PO DAILY #60 03/10/21 carvediloL [Coreg*] 25 mg PO BID 6AM 6PM #60 tab 03/10/21 Hydralazine HCl [Apresoline] 75 mg PO TID 06/05/21 Nitroglycerin 0.4 mg PO 1X PRN 06/05/21 - Past Medical/Surgical History Diabetic: Yes -: Hypertension -: Diabetes mellitus type 2 insulin-dependent -: ESRD - MWF -: Nonfuctioning LLE fistula -: Hyperlipidemia -: GERD -: CAD with prior stent, CABG -: Hyperparathyroidism -: Anemia of chronic disease with iron deficiency -: Diabetic neuropathy -: COVID-19 01/21/2020 -: Triple bypass 2016 -: Pacemaker -: Tubal ligation -: Fistula aneursym reconstruction 4 times -: Bilateral cataract surgery Psychosocial/ Personal History: Lives at home - Family History Mother Medical History: Heart disease - Social History Smoking Status: Unknown if ever smoked Alcohol use: No CD- Drugs: No Caffeine use: Yes Place of Residence: Home Review of Systems 10-point ROS is otherwise unremarkable Physical Examination Temp Pulse Resp BP Pulse Ox 99.1 F 67 18 169/81 H 92 06/05/21 12:00 06/05/21 12:00 06/05/21 12:00 06/05/21 12:00 06/05/21 12:00 General: Alert, Obese HEENT: Atraumatic, Normocephalic Neck: 2+ carotid pulse no bruit Respiratory: Clear to auscultation bilaterally, Normal air movement Cardiovascular: No edema, Normal pulses, Systolic murmur Gastrointestinal: Normal bowel sounds, Soft and benign Musculoskeletal: No clubbing, No swelling, No contractures Integumentary: No rashes, No breakdown, No significant lesion Laboratory Data (last 24 hrs) 06/05/21 05:33: Sodium 134 L, Potassium 3.3 L, BUN 32 H, Creatinine 4.53 H, Glucose 254 H, Total Bilirubin 0.4, AST 15, ALT 15, Alkaline Phosphatase 98, Triglycerides 153 H, Cholesterol 107, HDL Cholesterol 13 L, Cholesterol/HDL Ratio 8.23 06/05/21 05:33: WBC 3.90 L, Hgb 7.6 L, Hct 22.8 L, Plt Count 74 L 06/04/21 20:20: PT 12.2, INR 1.06 06/04/21 20:20: WBC 3.90 L, Hgb 7.8 L, Hct 22.9 L, Plt Count 76 L 06/04/21 20:20: Sodium 131 L, Potassium 3.4 L, BUN 32 H, Creatinine 4.30 H, Glucose 381 H, Magnesium 2.1, Total Bilirubin 0.6, AST 22, ALT 18, Alkaline Phosphatase 119 H Conclusions/Impression: Antibiotics Vancomycin: urrent Rocephin: urrent Assessment/plan Acute mitral valve endocarditis Transthoracic echocardiogram showed possible mitral valve endocarditis Blood cultures pending Patient has extensive cardiovascular history including 3 MIs, and cardiac surgery consisting of pacemaker and bypass -Recommend continuing broad-spectrum IV antibiotic coverage with vancomycin and Rocephin Pancytopenia -Apparently patient has been neutropenic for months now, no clear reason as to why. Recommend heme-onc consultation -Recommend patient be in reverse contact isolation due to neutropenia ESRD on HD Continue HD q. Tuesday -Medical management per primary team Plan of care discussed with Dr. Morillo Thank you for consultation
--- NOTE | 2021-06-05 17:25 | P.PN ---
Date of Service: 06/05/21 Subjective: Feeling a little bit better Further discussion, continues with some mild chest pain Epigastric tenderness Has been taking Alisa-[place] daily for several months Has had a few months of lower extremity weakness, difficulty ambulating ROS: 10 point ROS as noted above, otherwise negative Physical exam GEN: Alert, oriented, NAD HEENT: Normal conjunctiva, sclera anicteric CV: Regular rate and rhythm, no edema Pulm: Mild labored respirations on 3 L nasal cannula ABD: Soft, epigastric tenderness, moderate Integumentary: No rashes Neuro: Normal speech, normal affect Problem List Chest pain rule out ACS history CAD status post CABG, pacemaker ESRD on HD MWF Diabetes mellitus type 2insulin-dependent Hypertension Hyperlipidemia Iron deficiency anemia Thrombocytopenia Chest pain, patient with significant cardiac history Troponin remain steady, mildly elevated Cardiology consulted, echocardiogram ordered, revealed vegetation on mitral valve Blood cultures ordered, start empiric antibiotics Check procalcitonin, inflammatory markers Pancytopenia, appears chronic Anemia acute on chronic, suspect occult bleeding from gastric ulcer, has history of gastric ulcers, has been taking daily Alisa-[place] Start Protonix Infectious disease consulted 1 unit PRBC ordered with dialysis today Nephrology consulted Proximal weakness, neurology consulted Code: Full Dispo: home, likely ~3 days Time Spent Managing Pts Care (In Minutes): 50
--- NOTE | 2021-06-05 19:17 | RAD REPORT ---
EXAM DESCRIPTION: CT - Head Brain Wo Cont - 06/05/2021 7:06 pm CLINICAL HISTORY: Seizure COMPARISON: 2020 TECHNIQUE: Computed axial tomography of the head was obtained. IV contrast was not requested. All CT scans are performed using dose optimization technique as appropriate and may include automated exposure control or mA/KV adjustment according to patient size. FINDINGS: An intracranial bleed is not seen . The ventricles are normal in caliber. No extra-axial fluid collection is noted. Mild low-density areas within periventricular, deep and subcortical white matter likely represent isc hemic changes secondary to small vessel disease. Fluid within the sinuses/ mastoids is not seen. IMPRESSION: No acute intracranial abnormality is seen. If patient's symptoms persist MRI of the bra in would be recommended.
[2021-06-05] MEDS: CEFTRIAXONE 2,000 MG in NA CHLORIDE 0.9% 100 ML IV SCH (20:57)
[2021-06-05] MEDS: ATORVASTATIN 40 MG TAB PO SCH (20:58)
--- NOTE | 2021-06-05 21:26 | CON ---
Reason For Consultation: Consultation called because of syncope. History Of Present Illness: Ms. Qiana Valdez is a 65-year-old patient with coronary artery d isease, end-stage renal disease on hemodialysis for more than 8 years, chronic liver disease, diabete s mellitus type 2, hypertension, chronic anemia, who comes to [facility] with a syncopal epi sode. The patient's daughter was in the room. She developed chest pain earlier in the week. The pa in was in the substernal region and she had some shortness of breath and also the pain progressed and it should be noted she does have a coronary artery bypass grafting and has had sternotomy but that i s more remote. In the event, she came to [facility] and the syncope was not accompanied by tonoclonic activity, tongue biting, or loss of bowel or bladder control. At [facility], she had blood work showing elevated troponin which was more likely chronic weight at 360 earlier on the day that is around 0530 in the morning; around 1123, it was 389. Her procalcitonin elevated at 4.81, ferritin elevated at 754, glucose range 236 to 254, creatinine 4.5. Arterial blood gas showed pH of 7.62, right blood cell count was 3.8, and hemoglobin 7.6. The patient and her daughter did not repo rt any repeat episodes of syncope which is brief. Her daughter does say that she has had multiple fa lls from weakness in the lower extremities. She requires assistance to get up from the chair and mary or and walk steps due to proximal muscle weakness in the lower extremities. She also has difficulty raising the arms above the head for chronic time. Past Medical History: Hypertension, diabetes mellitus, end-stage renal disease, dyslipidemia, gastro esophageal reflux disease, coronary artery disease, hyperparathyroidism, anemia of chronic disease, d iabetes mellitus, and COVID-19 twice in January 21 and in March of 2020. Past Surgical History: Three-vessel bypass in 2016, pacemaker placement, tubal ligation, fistula ane urysm with reconstruction 4 times for dialysis, bilateral cataract surgery. Allergies: NO KNOWN DRUG ALLERGIES. Medications: At Home: Aspirin 81 mg daily, atorvastatin 80 mg daily. Tums 500 mg 3 times daily, lactulose 30 mg daily, Reg latisha 5 mg 3 times daily, nifedipine 60 mg daily, Protonix 40 mg daily, vitamin B complex daily, vitami n D 400 units daily, Plavix 75 mg daily. Apresoline 25 mg twice daily, isosorbide 60 mg daily, Coreg 25 mg twice daily. Family History: Heart disease in mother. Social History: No alcohol, tobacco, or IV drug use. Review of Systems: She has had proximal weakness in the upper and lower extremities with some episodic shortness of erlin th and chest pain and diarrhea. No abdominal pain. No blood in the urine or stool. She has had chr onic cough for several years, since surgery in the chest. Otherwise, negative on a 10 point systems review. Physical Examination: Vital Signs: Blood pressure 169/81, pulse 67, respiratory rate 18, temperature 99.1, oxygen saturati on 92% on room air, respiratory rate 16. General: Ms. Valdez is sitting at side of bed. She is in no significant distress. HEENT: She is normocephalic, atraumatic. Sclerae anicteric. Oropharynx is moist and pink. Neck: Supple. Chest: Healed median sternotomy. Some decreased breath sounds. Abdomen: Soft. Extremities: Showed mild edema in the lower extremities bilaterally. Neurological: She is alert and oriented to situation, place, time. She does have no expressive or receptive aphasias. Cranial nerv es showed no focal deficits on 2 through 12. Motor examination; she has proximal muscle weakness abo ut 3/5 in the deltoid, biceps in the upper extremity and the lower extremity hip extension, knee exte nsion are 3/5. Distally in the upper extremities, she is at least 4+ to 5/5. In the lower extremity at the foot, plantar dorsiflexion 5/5. Reflexes are 2 at the patellae bilaterally, 1 in the biceps o f upper extremities, 0 at the patellae. Coordination intact in upper extremities and lower extremiti es. Gait, she has a waddling type gait. Assessment: Ms. Valdez is a 65-year-old patient with multiple chronic diseases including liver, kidne y dysfunction, anemia, coronary artery disease, and she has had bypass grafting, comes in with a sync opal episode of unclear etiology. She did have severe anemia, hemoglobin 7.6. She does have elevate d procalcitonin that may be chronic, also very elevated troponin and may also be chronic. Her syncop al episode may have multiple etiologies including the possibility of seizures. 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 Plan: 1.We will follow up on the aldolase, lipase, and creatine kinase. 2.If possible, perhaps as an outpatient, EMG nerve conduction study, to rule out a myopathy. 3.She may be worked up for a paraneoplastic syndrome. It should be noted that patient did have a th oracentesis due to fluid collection around the lungs that is not necessarily further explored. Her c hest x-ray from the third does show no measurable pleural effusion or pneumothorax. There are promin ent interstitial markings that is diminished compared to a prior study done on 03/11/2021. Plan, agg ressive management of multiple comorbid conditions. 4.The patient should ambulate with a walker at all times. 5.We will follow up on blood work to help rule out a myopathy that may be addressed either with ster oids or other treatment options depending on diagnosis. 6.Require an EMG nerve conduction study, perhaps outpatient. 7.Physical Therapy, Occupational Therapy to help the patient ambulate more safely. LB/MODL Voice ID: [id number] Report ID: [id number]
[2021-06-06] MEDS ORDERED: LABETALOL 20 MG/4ML SYRINGE IV ONE (00:05)
[2021-06-06 00:10] LABS: Hematocrit 30.6 % (36.0-45.0)
[2021-06-06] MEDS: MORPHINE 4 MG/ML SYR IV PRN ×2 (00:32→08:38)
[2021-06-06 04:32] LABS: Absolute Lymphocytes (CBC) 0.8 K/uL (0.7-4.9); Hematocrit 27.2 % (36.0-45.0); Lymphocytes % 11.2 % (15.3-44.8); MPV 10.2 fL (7.6-11.3); RBC Red Blood Cell Count 2.88 M/uL (3.86-4.86)
[2021-06-06 04:58] LABS: Albumin 2.4 g/dL (3.4-5.0); Bilirubin Total 0.6 mg/dL (0.2-1.0); C-Reactive Protein 47.2 mg/L (<3.00); Potassium 4.1 mmol/L (3.5-5.1); Protein, Total 7.6 g/dL (6.4-8.2)
[2021-06-06] MEDS: METOPROLOL TAR 25 MG TAB PO SCH ×2 (05:16→16:28)
[2021-06-06] MEDS: INSULIN -REGULAR HUMAN 50 UNIT/0.5 ML ML SQ SCH ×4 (07:30→20:46)
[2021-06-06] MEDS: PANTOPRAZOLE 40MG TABLET PO SCH (08:34)
[2021-06-06] MEDS: ASPIRIN EC 81 MG TAB PO SCH (08:34)
[2021-06-06] MEDS: CLOPIDOGREL 75 MG TABLET PO SCH (08:34)
[2021-06-06] MEDS ORDERED: VANCOMYCIN 500 MG in NA CHLORIDE 0.9% 100 ML IVPB SCH (09:00)
[2021-06-06] MEDS ORDERED: AMLODIPINE 5 MG TAB PO SCH (09:20)
[2021-06-06] MEDS: CEFTRIAXONE 2,000 MG in NA CHLORIDE 0.9% 100 ML IV SCH (09:25)
[2021-06-06] MEDS ORDERED: HYDRALAZINE HCL 20 MG/ML VIAL IV PRN (11:30)
[2021-06-06] MEDS ORDERED: PNEUMOCOCCAL VACCINE 0.5 ML IMVAC ONE (12:00)
--- NOTE | 2021-06-06 13:23 | P.PN ---
Subjective Date of Service: 06/06/21 Chief Complaint: Chest pain, syncope A 65-year-old female, with past medical history of end-stage renal disease on dialysis Tuesday, Tuesday, Tuesday, hypertension; diabetes complicated with neuropathy and nephropathy; hyperlipidemia; Hx of COVID pneumonia ; renal artery stenosis, status post stenting and CAD TTE: with possible MV endoacaritis today have nausea will give reglan X1 BP elevated will start ISMN and switch amlodipine to nifedipine ID following Physical exam General: AAOx3, in mild distress CHEST; CTAB, basal rales HEART : RRR. Normal S1,2 no murmur or rub Abd: soft, Nt Ext: no edema Skin : No rash Labs WBC 7.0, Hb 9.0, Plt 81, Na 133, K 4.1, Cl 106, bicarb 23, bun 21, C 3.48 ESRD on HD MWF HD MWF UF 3liters on Tuesday renal diet renal dose meds possiblw mitral valve endocarditis Cont Ab Acute on chronic anemia Hb 10 in March Cot epogen iron sat 49% , not candidate for IV iron paln for 1 PRBC with HD today Pancytopenia WBC improved Hematology as an OP NSTEMI trend troponin Cardiology evaluation HTN BP elevated will start ISMN and switch amlodipine to nifedipine Physical Examination - Vital Signs Temperature: 97.6 F Blood Pressure: 204/93 Pulse: 61 Respirations: 20 Pulse Ox (%): 95
[2021-06-06] MEDS ORDERED: METOCLOPRAMIDE 10 MG/2mL INJ IV ONE (14:00)
[2021-06-06] MEDS: NIFEDIPINE XL 30 MG TABLET PO SCH (16:24)
[2021-06-06] MEDS: ISOSORBIDE MONO SR 60 MG TAB PO SCH (16:28)
[2021-06-06] MEDS: ATORVASTATIN 40 MG TAB PO SCH (20:42)
--- NOTE | 2021-06-06 22:24 | P.PN ---
Date of Service: 06/06/21 Subjective: felt somewhat confused this morning remembers things in a haze at times overnight nauseous no new pains ROS: 10 point ROS as noted above, otherwise negative Physical exam GEN: Alert, oriented, NAD HEENT: Normal conjunctiva, sclera anicteric, poor dentition CV: Regular rate and rhythm, no edema Pulm: non-labored respirations on 2 L nasal cannula ABD: Soft, mild epigastric tenderness Integumentary: No rashes Neuro: Normal speech, normal affect R AV fistula, palpable thrill, no overlying erythema / evidence of infection Problem List Infective Endocarditis, mitral valve ESRD on HD MWF Diabetes mellitus type 2insulin-dependent Hypertension Hyperlipidemia Iron deficiency anemia Thrombocytopenia Cardiology consulted, echocardiogram ordered, revealed vegetation on mitral valve Blood cultures (06/05): gram+ empiric Vanc started 06/05; ID consulted, added rocephin / elevated inflammatory markers: CRP, procal Anemia acute on chronic, suspect occult bleeding from gastric ulcer, has history of gastric ulcers, has been taking daily Alisa-[place] Start Protonix 3/ pancytopenia, chronic, slide for path review ordered, s/p 1uPRBC with HD Nephrology consulted Proximal weakness, neurology consulted; suspect myositis will need [address] head negative unable to obtain MRI due to pacemaker will check CT lumbar/sacrum spine, pt with tenderness, new proximal muscle weakness, 1 month of loose stools/slight incontinence Code: Full Dispo: patient requesting transfer to [place] - closer to family and had prior procedures up there. Transfer to [facility] initiated. Cardiology (Dr. Kaba - accepted patient), awaiting bed availability and hospitalist acceptance Time Spent Managing Pts Care (In Minutes): 60
--- NOTE | 2021-06-06 22:24 | PN ---
Date of Progress Note: 06/06/2021 Subjective: Ms. Valdez came in on 06/04/2021 because of chest pain and syncope. She has end-stage re nal disease, history of CABG, pacemaker, diabetes, dyslipidemia, hypertension. She came in with thro mbocytopenia, atypical chest pain. Echocardiogram yesterday showed a normal ejection fraction, howev er she had a vegetation on her mitral valve consistent with endocarditis. The case was discussed wit yoel Lau. She needs to be on IV antibiotics for 6 weeks. She needs to have a positive PICC line or use dialysis catheters or access for antibiotics. She needs to have Infectious Disease involved. Her vegetation is not large. She is hemodynamically stable. She does not have CHF. Does not have any embolic phenomenon and I feel comfortable with her being here is on IV antibiotics. I do not thi nk she needs to be transferred to a tertiary care center. I will continue to follow her. DENG/EVAN Voice ID: [id number] Report ID: [id number]
--- NOTE | 2021-06-06 23:08 | CON ---
Date of Consultation: 06/05/2021 Admitted on 06/04/[address] Lau's service, I saw the patient on 06/05/2021. History Of Present Illness: Syncope and chest pain. History Of Present Illness: Ms. Valdez is a 65-year-old, has a history of CABG, end-stage renal disea se, on dialysis, pacemaker, diabetes, dyslipidemia, hypertension, came in with syncope, chest pain, t hrombocytopenia, nonspecific symptoms, heart catheterization, which was done in December 2020, showe d patent graft to the mammary and RCA and OM. Last pacemaker check was okay. She was found to have a creatinine of 4.53, platelets 74,000, hemoglobin 7.6. Her troponin was 360. BNP was more than 35, 000. She denied fever or chills. Past Medical History: As stated above. Allergies: NONE. Review of Systems: Negative. Social History: Negative. Family History: Noncontributory. Medications: At home include, 1.Aspirin. 2.Plavix. 3.Lipitor. 4.Hydralazine. 5.Coreg. 6.Procardia. 7.Imdur. 8.Protonix. Physical Examination: Vital Signs: Stable sinus rhythm, afebrile. HEENT: Negative. Neck: Supple without any bruit, lymphadenopathy, JVD, or thyromegaly. Chest: Clear to auscultation and percussion. Cardiac: Revealed a regular rhythm and rate. No murmurs, gallops, or rubs. Abdomen: Benign. Extremities: Revealed no clubbing, cyanosis, or edema. Skin: Dry and intact. Neurologic: She was nonfocal. Pulses were present distally and bilaterally. Diagnostic Data: As stated above. Impression And Plan: 1.Syncope, possibly secondary to orthostatic hypotension. Echocardiogram is pending. 2.Chest pain, expected from her coronary anatomy. 3.Thrombocytopenia. 4.End-stage renal disease, on hemodialysis. 5.Status post pacemaker. 6.Coronary artery disease, status post coronary artery bypass graft. 7.Diabetes. 8.Dyslipidemia. 9.Hypertension. 10.Anemia. 11.Elevated troponin and BNP secondary to chronic coronary artery disease and end-stage renal diseas e. I would definitely get an echocardiogram on Ms. Valdez to rule out worsening congestive heart fail ure. Continue present regimen. We may want to hold her hydralazine or Procardia depending what her blood pressure does over the next day or 2. DENG/EVAN Voice ID: [id number] Report ID: [id number]
[2021-06-07 00:53] VITALS: O2SAT 97
[2021-06-07] MEDS: METOPROLOL TAR 25 MG TAB PO SCH ×2 (05:43→16:29)
--- NOTE | 2021-06-07 06:04 | P.PN ---
Date of Service: 06/07/21 Subjective: Feeling slightly better today, not as much nausea, no headache, no confusion Denies any new symptoms ROS: 10 point ROS as noted above, otherwise negative Physical exam GEN: Alert, oriented, NAD HEENT: Normal conjunctiva, sclera anicteric, poor dentition CV: Regular rate and rhythm, no edema Pulm: non-labored respirations on 3 L nasal cannula, diminished at R base ABD: Soft, mild epigastric tenderness Integumentary: No rashes Neuro: Normal speech, normal affect R AV fistula, palpable thrill, no overlying erythema / evidence of infection Problem List Infective Endocarditis, mitral valve ESRD on HD MWF Diabetes mellitus type 2insulin-dependent Hypertension Hyperlipidemia Iron deficiency anemia Thrombocytopenia Cardiology consulted, echo: vegetation on mitral valve Blood cultures (06/05): gram+; pending empiric Vanc started 06/05; ID consulted, added rocephin / elevated inflammatory markers: CRP, procal Anemia acute on chronic, suspect occult bleeding from gastric ulcer, has history of gastric ulcers, has been taking daily Alisa-[place] Started Protonix 06/05 pancytopenia, appears chronic, slide for path review ordered s/p 1uPRBC with HD Nephrology consulted Proximal weakness, neurology consulted; suspect myositis will need [address] head negative unable to obtain MRI due to pacemaker will check CT lumbar/sacrum spine, pt with tenderness, new proximal muscle weakness, 1 month of loose stools/slight incontinence Code: Full Dispo: patient requesting transfer to [place] - closer to family and had prior procedures up there. Transfer to Pending sale to [facility] initiated. Cardiology (Dr. Kaba - accepted patient), awaiting bed availability and hospitalist acceptance Time Spent Managing Pts Care (In Minutes): 45
[2021-06-07 06:25] LABS: Absolute Lymphocytes (CBC) 0.9 K/uL (0.7-4.9); Hematocrit 28.1 % (36.0-45.0); Lymphocytes % 25.7 % (15.3-44.8); MPV 9.4 fL (7.6-11.3); RBC Red Blood Cell Count 2.96 M/uL (3.86-4.86)
[2021-06-07 06:39] LABS: Albumin 2.4 g/dL (3.4-5.0); Bilirubin Total 0.5 mg/dL (0.2-1.0); C-Reactive Protein 55.9 mg/L (<3.00); Magnesium 2.4 mg/dL (1.8-2.4); Potassium 3.9 mmol/L (3.5-5.1); Protein, Total 7.5 g/dL (6.4-8.2)
[2021-06-07] MEDS: INSULIN -REGULAR HUMAN 50 UNIT/0.5 ML ML SQ SCH ×3 (07:30→16:31)
[2021-06-07] MEDS ORDERED: VANCOMYCIN 500 MG in NA CHLORIDE 0.9% 100 ML IVPB ONE (08:00)
--- NOTE | 2021-06-07 09:14 | RAD REPORT ---
EXAM DESCRIPTION: CT - Abdomen Pelvis W Contrast - 06/07/2021 8:24 am CLINICAL HISTORY: r/o abscess, septic emboli, fracture COMPARISON: Chest Abd Pelvis Wo Con dated 12/29/2020 TECHNIQUE: Biphasic, helical CT imaging of the abdomen and pelvis was performed following 100 ml non -ionic IV contrast. No oral contrast administered. All CT scans are performed using dose optimization technique as appropriate and may include automated exposure control or mA/KV adjustment according to patient size. FINDINGS: A small to moderate-sized right pleural effusion is present. This is only partially imaged . There is partial atelectasis of the right lower lobe. Pleural fluid has enlarged since December 22. Heart size is upper normal. No pericardial thickening or effusion. Liver capsule has a nodular contour. There are no focal liver lesions. No portal vein thrombus presen t. Spleen is upper normal in size. No pancreatic or peripancreatic acute findings. Small gallstones a re present. Gallbladder wall is slightly thickened, probably chronic. No abnormal biliary tree dilata tion. Atrophic [place] kidneys are present with upper pole right renal cyst. No solid mass lesion, hydroneph rosis or acute renal parenchymal process seen. Dense arterial tree calcifications are present. There is a stent at the left renal artery origin. No pyelonephritis or acute parenchymal process. Bladder i s contracted. No adrenal abnormalities. No uterus or ovarian acute finding. No gastric dilatation or gastric wall thickening. A few fluid-filled small bowel loops are present. N o dilation of the large or small bowel. No appendicitis findings. Diverticulosis is mild without dive rticulitis findings. No free air or pneumatosis. No focal inflammatory stranding. There is a trace amount of ascites. Pa tient has a mild fluid retention pattern in the subcutaneous fatty tissues. No mass or bulky lymphad enopathy. No suspicious bony findings. IMPRESSION: No bowel obstruction, free air or emergent finding. A few small bowel loops are mildly prominent. Enteritis is possible. Cirrhosis or diffuse hepatic parenchymal disease with no focal liver lesion identifiable. Small to moderate size right pleural effusion only partially imaged. Pleural fluid has increased sinc e 12/29/2020 examination.
[2021-06-07] MEDS: CEFTRIAXONE 2,000 MG in NA CHLORIDE 0.9% 100 ML IV SCH (09:16)
[2021-06-07] MEDS: ISOSORBIDE MONO SR 60 MG TAB PO SCH (09:17)
[2021-06-07] MEDS: PANTOPRAZOLE 40MG TABLET PO SCH (09:17)
[2021-06-07] MEDS: CLOPIDOGREL 75 MG TABLET PO SCH (09:17)
[2021-06-07] MEDS: ASPIRIN EC 81 MG TAB PO SCH (09:17)
[2021-06-07] MEDS: NIFEDIPINE XL 30 MG TABLET PO SCH (09:18)
[2021-06-07 09:37] LABS: Blood Morphology Comment NOT SEEN (NOT SEEN); Platelet Estimate DECR
--- NOTE | 2021-06-07 11:53 | P.PN ---
Subjective Date of Service: 06/07/21 Chief Complaint: Chest pain, syncope A 65-year-old female, with past medical history of end-stage renal disease on dialysis Tuesday, Tuesday, Tuesday, hypertension; diabetes complicated with neuropathy and nephropathy; hyperlipidemia; Hx of COVID pneumonia ; renal artery stenosis, status post stenting and CAD TTE: with possible MV endoacaritis today feels better nausea resolved BP better controlled initial BCx Streptococcus F/U repeated cultures Physical exam General: AAOx3, in mild distress CHEST; CTAB, basal rales HEART : RRR. Normal S1,2 no murmur or rub Abd: soft, Nt Ext: no edema Skin : No rash ESRD on HD MWF HD MWF UF 3liters on Tuesday renal diet renal dose meds Infective endocarditis TTE: possible vegetation Cont Ab initial Bcx : streptococcus scheduled for Spine CT scan F/U repeated blood cultures will require long tem Abx , if requires Access will recommend central line if Abx cant be given during HD Acute on chronic anemia Hb 10 in March Cot epogen iron sat 49% , not candidate for IV iron paln for 1 PRBC with HD today Pancytopenia WBC improved Hematology as an OP NSTEMI trend troponin Cardiology evaluation HTN Bp controlled now cont curent medications UF as tolerated Physical Examination - Vital Signs Temperature: 97 F Blood Pressure: 149/73 Pulse: 69 Respirations: 18 Pulse Ox (%): 96 - Studies WBC 3.5, Hb 9.4, Plt 84, Na 135, K 3.9, Cl 102, Bicab 24, Bun 38, Cr 4.5, BS 130
[2021-06-07 16:19] VITALS: BP 138/60; TEMP 96.8
--- NOTE | 2021-06-07 17:46 | P.DS ---
Admission Date: 06/05/21 Discharge Date: 06/07/21 Reason for Admission: Chest pain, syncope Consultations: Cardiology - Dr. Mi ID - Dr. Morillo Nephrology - Dr. Jackson Neurology - Dr. Henderson Procedures: CXR (06/04): FINDINGS: Lung volumes are low. No peripheral mass consolidation. Prominent interstitial pattern is similar or less prominent than seen previously. Mild cardiomegaly present. Vasculature within range of normal. Two lead pacemaker in place via right subclavian approach. Sternotomy wires are in place. No measurable pleural effusion and no pneumothorax. No acute bony abnormality seen. No acute aortic findings suspected. IMPRESSION: No peripheral mass or consolidation. No significant failure or volume overload [place] Interstitial markings are prominent but diminished compared to prior study. CT Head (06/05): FINDINGS: An intracranial bleed is not seen . The ventricles are normal in caliber. No extra-axial fluid collection is noted. Mild low-density areas within periventricular, deep and subcortical white matter likely represent ischemic changes secondary to small vessel disease. Fluid within the sinuses/ mastoids is not seen. IMPRESSION: No acute intracranial abnormality is seen. If patient's symptoms persist MRI of the brain would be recommended. CT Abd/pelvis (06/07): FINDINGS: A small to moderate-sized right pleural effusion is present. This is only partially imaged. There is partial atelectasis of the right lower lobe. Pleural fluid has enlarged since December 2020. Heart size is upper normal. No pericardial thickening or effusion. Liver capsule has a nodular contour. There are no focal liver lesions. No portal vein thrombus present. Spleen is upper normal in size. No pancreatic or peripancreatic acute findings. Small gallstones are present. Gallbladder wall is slightly thickened, probably chronic. No abnormal biliary tree dilatation. Atrophic [place] kidneys are present with upper pole right renal cyst. No solid mass lesion, hydronephrosis or acute renal parenchymal process seen. Dense arterial tree calcifications are present. There is a stent at the left renal artery origin. No pyelonephritis or acute parenchymal process. Bladder is contracted. No adrenal abnormalities. No uterus or ovarian acute finding. No gastric dilatation or gastric wall thickening. A few fluid-filled small bowel loops are present. No dilation of the large or small bowel. No appendicitis findings. Diverticulosis is mild without diverticulitis findings. No free air or pneumatosis. No focal inflammatory stranding. There is a trace amount of ascites. Patient has a mild fluid retention pattern in the subcutaneous fatty tissues. No mass or bulky lymphadenopathy. No suspicious bony findings. IMPRESSION: No bowel obstruction, free air or emergent finding. A few small bowel loops are mildly prominent. Enteritis is possible. Cirrhosis or diffuse hepatic parenchymal disease with no focal liver lesion identifiable. Small to moderate size right pleural effusion only partially imaged. Pleural fluid has increased since 12/29/2020 examination. Echo (06/05): EF: 62% SEVERE PULMONARY HYPERTENSION. normal LVEF, possible MV vegetation, LA enlargement, Severe pulmonary hypertension Problem List Infective Endocarditis, mitral valve (streptococcus species) ESRD on HD MWF Diabetes mellitus type 2insulin-dependent Hypertension Hyperlipidemia CAD s/p CABG Iron deficiency anemia Thrombocytopenia Brief History of Present Illness: 65yo F, PMH: CADs/p CABG, ESRD on HD, DM2, HTN, HLD, anemia. Presented to the ED with chest pain, syncope, shortness of breath. Patient reports that earlier in the evening she was developing some pressure- like chest pain nonradiating with associated shortness of breath, patient was brought to the ER by her family who report that she had a syncopal episode in the vehicle where she was not responding to them. Patient was evaluated in the emergency department she did have mild elevation in her high-sensitivity troponin level of 403.7 BNP was elevated as well. Patient is pancytopenic which she has been in the past, hemoglobin 7.8 hematocrit 22.9. Patient denies any melena, hematochezia, hematemesis. EKG was without ST elevation chest x-ray demonstrated prominent interstitial markings. Hospital Course: Cardiology was consulted, patient underwent echocardiogram which revealed vegetation on patient's mitral valve. Cardiology reported no mitral regurgitation noted. Blood cultures were obtained on 06/05 after echo findings were seen. This resulted with 4/4 bottles gram-positive cocci. Streptococcus species. Patient was started on empiric vancomycin and Rocephin on 06/05. Infectious disease was consulted. Patient was noted to have elevated inflammatory markers, CRP, procalcitonin. Patient presented with pancytopenia which was consistent with prior labs dating back at least to 2018. She was noted to be more anemic, and was given 1 unit PRBC with hemodialysis. She was noted to have some moderate epigastric tenderness, and reported taken daily [place] for the last year. On admission, patient was Hemoccult negative. Nephrology was consulted, patient underwent dialysis as typical. Currently planned for next dialysis to be on Tuesday. Patient was noted to have proximal weakness, reported 1-2 months of progressively worsening weakness and difficulty ambulating. 1 month of loose stools / difficulty holding. Neurology was consulted, and is suspicious for a myositis. She was noted to have lumbar tenderness, [id number] joint region. We were unable to obtain an MRI secondary to patient's pacemaker. A CT with IV contrast was obtained to evaluate. There is no acute process noted. Patient's diagnosis was discussed with her and family. They preferred for the patient to be transferred to [place]. Given her infective endocarditis, and Streptococcus growing, transfer was initiated. Patient was accepted to [facility]. will check CT lumbar/sacrum spine, pt with tenderness, new proximal muscle weakness, 1 month of loose stools/slight incontinence Vital Signs/Physical Exam: Temp Pulse Resp BP Pulse Ox 96.8 F 60 18 138/60 93 06/07/21 16:00 06/07/21 16:29 06/07/21 16:00 06/07/21 16:29 06/07/21 16:00 Physical exam GEN: Alert, oriented, NAD HEENT: Normal conjunctiva, sclera anicteric, poor dentition CV: Regular rate and rhythm, trace b/l lower extremity edema Pulm: non-labored respirations on 2 L nasal cannula, diminished at R base ABD: Soft, mild epigastric tenderness Integumentary: No rashes, no lesions Neuro: Normal speech, normal affect, CNII-XII grossly intact. Proximal muscle weakness 3/5 in b/l deltoids/biceps. 3/5 in b/l hip extension and knee extension. 5/5 in distal upper/lower extremities R AV fistula, palpable thrill, no overlying erythema Laboratory Data at Discharge: WBC 3.50 K/uL (4.3-10.9) L D 06/07/21 05:54 Hgb 9.4 g/dL (12.0-15.0) L 06/07/21 05:54 Hct 28.1 % (36.0-45.0) L 06/07/21 05:54 Plt Count 84 K/uL (152-406) L 06/07/21 05:54 PT 12.2 SECONDS (9.5-12.5) 06/04/21 20:20 INR 1.06 06/04/21 20:20 Sodium 135 mmol/L (136-145) L 06/07/21 05:54 Potassium 3.9 mmol/L (3.5-5.1) 06/07/21 05:54 BUN 38 mg/dL (7-18) H 06/07/21 05:54 Creatinine 4.65 mg/dL (0.55-1.3) H D 06/07/21 05:54 Glucose 130 mg/dL (74-106) H 06/07/21 05:54 Magnesium 2.4 mg/dL (1.8-2.4) 06/07/21 05:54 Total Bilirubin 0.5 mg/dL (0.2-1.0) 06/07/21 05:54 AST 19 U/L (15-37) 06/07/21 05:54 ALT 17 U/L (12-78) 06/07/21 05:54 Alkaline Phosphatase 109 U/L (45-117) 06/07/21 05:54 Triglycerides 153 mg/dL (<150) H 06/05/21 05:33 Cholesterol 107 mg/dL (<200) 06/05/21 05:33 HDL Cholesterol 13 mg/dL (40-60) L 06/05/21 05:33 Cholesterol/HDL Ratio 8.23 06/05/21 05:33 Home Medications: Aspirin 81 mg PO DAILY 07/15/20 Atorvastatin Calcium [Lipitor] 80 mg PO BEDTIME 07/15/20 Calcium Carbonate [Tums Regular*] 500 mg PO TID PRN 07/15/20 Emla 1 appl TOP SEECOM 07/15/20 Lactulose 30 gm PO DAILYPRN PRN 07/15/20 Metoclopramide [Reglan*] 5 mg PO TIDWM 07/15/20 NIFEdipine [Nifedipine ER] 60 mg PO DAILY 07/15/20 Pantoprazole [Protonix Tab*] 40 mg PO DAILY 07/15/20 Sennosides/Docusate Sodium [Senexon-S 50-8.6 mg Tablet] 1 each PO BID 07/15/20 Sucroferric Oxyhydroxide [Velphoro] 500 mg PO TIDWM 07/15/20 Vit B Comp C/Folic Acid/Vit D3 [Dialyvite 800 Plus D Wafer] 1 each PO DAILY 07/15/20 Vitamin E 400 unit PO DAILY 07/15/20 Clopidogrel Bisulfate [Plavix*] 75 mg PO DAILY #30 tablet 12/30/20 Isosorbide Mononitrate [Isosorbide Mononitrate ER] 60 mg PO DAILY #60 03/10/21 carvediloL [Coreg*] 25 mg PO BID 6AM 6PM #60 tab 03/10/21 Hydralazine HCl [Apresoline] 75 mg PO TID 06/05/21 Nitroglycerin 0.4 mg PO 1X PRN 06/05/21 Followup: Unknown,U [Primary Care Provider] - Time spent managing pt's care (in minutes): 45
--- NOTE | 2021-06-07 19:36 | PN ---
Date of Progress Note: 06/07/2021 Ms. Valdez is in the hospital, being treated for a vegetation on her mitral valve secondary to endocar ditis. She is on IV antibiotics. The decision is being made to transfer her to a [facility] er for continued treatment for her endocarditis. She is on dialysis. She is hemodynamically stable, afebrile. No congestive heart failure. No significant mitral regurgitation. I do not think she is a candidate for any surgical intervention. I think antibiotics for 6 weeks is awaited though. Infe ctious Disease has been involved in her case. I discussed the case with Dr. Lau. DENG/EVAN Voice ID: [id number] Report ID: [id number]
== END 2021-06-07 18:24 | disposition short-term general hospital (02) | DRG 288 ==
LOC: ER 19:51 → 4TH 23:43 → OBSVTOIN 06-05 12:41 → 2ND 06-06 17:33
PROVIDERS: ADMIT Hospitalist; ATTEND Hospitalist
PROC: 5A1D70Z Performance of Urinary Filtration, Intermittent, Less than 6 Hours Per Day (ICD-10-PCS; principal; 2021-06-05)
PROC: 30233N1 Transfusion of Nonautologous Red Blood Cells into Peripheral Vein, Percutaneous Approach (ICD-10-PCS; 2021-06-05)
DX: I33.0 Acute and subacute infective endocarditis (principal); N18.6 End stage renal disease; I12.0 Hypertensive chronic kidney disease with stage 5 chronic kidney disease or end stage renal disease; D61.818 Other pancytopenia; B95.4 Other streptococcus as the cause of diseases classified elsewhere; E11.22 Type 2 diabetes mellitus with diabetic chronic kidney disease; E78.5 Hyperlipidemia, unspecified; D50.9 Iron deficiency anemia, unspecified; D69.6 Thrombocytopenia, unspecified; I25.10 Atherosclerotic heart disease of native coronary artery without angina pectoris; E11.40 Type 2 diabetes mellitus with diabetic neuropathy, unspecified; E11.21 Type 2 diabetes mellitus with diabetic nephropathy; E87.6 Hypokalemia; M60.9 Myositis, unspecified; Z86.16 Personal history of COVID-19; Z79.4 Long term (current) use of insulin; Z99.2 Dependence on renal dialysis; Z95.5 Presence of coronary angioplasty implant and graft; Z95.1 Presence of aortocoronary bypass graft; Z95.0 Presence of cardiac pacemaker; Z20.822 Contact with and (suspected) exposure to COVID-19
CPT/HCPCS: 0240U; 36415; 70450; 71045; 74177; 80048; 80053; 80061; 80076; 80202; 82550; 82728; 82805; 82947; 83540; 83615; 83735; 83880; 84145; 84466; 84484; 85014; 85018; 85025; 85044; 85610; 85652; 86140; 86850; 86900; 86901; 87040; 87077; 87186; 87205; 90935; 93005; 93306; 95819; 96374; 96375; 99285; G0378; J0360; J0696; J2405; J2765; J3010; J3370; J7050; P9016; Q9967

== ENCOUNTER 2021-07-06 11:17 | Emergency (ER) | payer OTHER ==
--- OUTSIDE RECORDS SUMMARY | 2021-07-06 11:49 | XMS REPORT | Continuity of Care Document ---
:1955 Author Organization [facility] t Address [address] [place] [address] Care Team Providers Name Role Phone Dianna Nunes MD, Bert Primary Care Physician [phone] BING Attending Clinician Unavailable Nola RUSSO Attending Clinician Unavailable Kip TRUJILLO Attending Clinician Shiela TRUJILLO Attending Clinician León TRUJILLO Attending Clinician Emmett Gracia MD Attending Clinician Ladarius Jc MD, Astrid Attending Clinician [phone] Harjeet TRUJILLO Attending Clinician Nola Russo MD Attending Clinician Brian Loco MD Attending Clinician [phone] William Grullon MD Attending Clinician Kalyan Dodd MD Attending Clinician Marissa TRUJILLO, Luis Attending Clinician Antonette Santana MD Attending Clinician Sergei Link MD Attending Clinician Lori Argueta MD Attending Clinician Tiffany Attending Clinician Unavailable Donte TRUJILLO Attending Clinician Donald DORSEY, B Attending Clinician Unavailable Tristan Attending Clinician Unavailable Singer OLIVIER Attending Clinician William TRUJILLO Attending Clinician WILLIAM Attending Clinician Unavailable Mendez GUAJARDO, L Attending Clinician Fuentes DORSEY Attending Clinician Unavailable Freddie Attending Clinician Unavailable Kim WHITE Attending Clinician GALEHELEN Admitting Clinician Unavailable William TRUJILLO Admitting Clinician WILLIAM Admitting Clinician Unavailable Payers Payer Name Policy Type Policy Number Effective Date Expiration Date S justice RIAZ/DEYVI MCARE [id number] 2021 ADV CHOICE PPO 00:00:00 [place] [id number] 2018 00:00:00 [employer] MEDICARE [id number] 2020 00:00:00 [place] [id number] 2019 00:00:00 Problems Condition Condition Condition Status Onset Resolution Last Treating Co mments Source Name Details Category Date Date Treatment Clinician Date Moderate Moderate Disease [facility] - regurgitat regurgitat 00:00: Me dical ion S/P ion S/P 00 Center Tricuspid Tricuspid valve valve repair repair (Drs. Russo (Drs. Russo and and Preventza Preventza 06/18/2021 06/18/2021 ) ) S/P CABG x S/P CABG x Disease Active [facility] 3 3 3-17 [facility] - (BAUER>LAD, (BAUER>LAD, 00:00: Me dical SVG>OM, SVG>OM, 00 Center SVG>PDA, SVG>PDA, 2015) 2015) S/P S/P Disease Active [facility] placement placement 3-17 [facility] - of cardiac of cardiac 00:00: Me dical pacemaker pacemaker 00 Cent er (2018) (2018) Pulmonary Pulmonary Disease Active [facility] HTN (HCC), HTN (HCC), 3-17 [facility] k[facility] - PASP 65-70 PASP 65-70 00:00: Me dical 00 [place] PFO PFO Disease Active [facility] (patent (patent 3-17 [facility] - foramen foramen 00:00: Medical ovale) ovale) 00 [place] small small Hypothermi Hypothermi Disease Active [facility] a, acute a, acute 3-17 [facility] - post-op post-op 00:00: Medical 00 [place] Acute Acute Disease Active [facility] blood loss blood loss 3-17 [facility] - anemia anemia 00:00: Medical [address] [place] [address] Acute Acute Disease Active [facility] postoperat postoperat 3-17 [facility] - cristela pain cristela pain 00:00: Medica l 00 [place] Acute Acute Disease Active [facility] encephalop encephalop 3-12 [facility] - athy athy 00:00: Medical 00 [place] HTN HTN Disease Active [facility] (hypertens (hypertens 3-12 [facility] - ion), ion), 00:00: Medical chronic chronic 00 [place] arterial arterial SAH SAH Disease Active [facility] (subarachn (subarachn 3-11 [facility] - oid oid 00:00: Medical hemorrhage hemorrhage 00 Ce nter ) ) Streptococ Streptococ Disease Active [facility] cus bovis cus bovis 3-07 [facility] - infection infection 00:00: [facility] 00 [place] 06/18/21: 06/18/21: Disease Active [facility] MV Repair MV Repair 3-06 [facility] - & TV & TV 00:00: Medical Repair Repair 00 [place] (Russo) (Russo) Pulmonary Pulmonary Disease Active Uni vers hypertensi hypertensi 2-13 it y of on on 00:00: [place] 00 Medical Branch Acute on Acute on Disease Active Unive rs chronic chronic 2-13 ity of respirator [place] failure [address] [facility] with with Branch hypoxia hypoxia Coronary Coronary Disease Active Unive rs artery artery 2-12 ity of disease disease 00:00: [place] involving involving [address] [facility] [place] Branch coronary coronary artery of artery of [place] heart with heart with angina angina pectoris pectoris Pacemaker Pacemaker Disease Active Uni vers 2-12 ity of 00:00: [place] 00 Medical Branch Acute on Acute on Disease Active Unive rs chronic chronic 2-12 [place] of diastolic diastolic [place] congest[place] congestive 00 Me dical heart [...] diabetes 2-12 ity of mellitus mellitus 00:00: [place] with with 00 Medical kidney kidney Branch complicati complicati on, on, without without long-term long-term current current use of use of insulin insulin Chest pain Chest pain Disease Active U nivers 2-11 ity of 00:00: [place] 00 Medical Branch Hypertensi Hypertensi Disease Active U nivers on, on, 2-11 ity of unspecifie [place]specifie [place] type d type 00 Medical Branch 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 00:00: [place] with with 00 Medical diabetic diabetic Branch polyneurop polyneurop athy, athy, without without long-term long-term current current use of use of insulin insulin Cerebrovas Cerebrovas Disease Active U nivers cular cular 2-11 ity of accident accident 00:00: [place] (CVA), (CVA), 00 Medical unspecifie unspecifie Br [...] right 2-11 ity of knee knee 00:00: [place] 00 Medical Branch Dizziness Dizziness Disease Active Uni vers 2-11 ity of 00:00: [place] 00 Medical Branch Lower leg Lower leg Disease Active Uni vers edema edema 2-11 ity of 00:00: Medical Branch Abnormal Abnormal Disease Active Unive rs EKG EKG 2-11 ity of 00:00: Medical Branch Chest Chest Disease Active Univers pressure pressure 2-11 ity of 00:00: Medical Branch Postmenopa Postmenopa Disease Active U nivers usal usal 4-20 ity of bleeding bleeding 00:00: Medical Branch Obesity Obesity Disease Active Univers (BMI (BMI 4-20 ity of 30-39.9) 30-39.9) 00:00: [place] Medical Branch Hematoma Hematoma Disease Active Metho [...] Active [facility] glasses [facility] ESRD (end ESRD (end Disease Active [facility] stage stage [facility] - renal renal Medical disease) disease) Center on on dialysis dialysis (HCC), on (HCC), on dialysis dialysis via RUE via RUE AVF AVF Episode of Problem 2019-02-19 M emoria generalize 22:28:00 l d weakness Episode Her hernandez of generalize d weakness Problem 02/19/2019 [facility] [place] Hyperkalem Problem 2019-02-19 M emoria ia 22:28:00 l Juainto Hyperkalem ia Problem 02/19/[address] [facility] [place] Elevated Condition 2019-02-19 M emoria brain 22:28:00 l natriureti Elevated He rmann c peptide brain (BNP) natriureti level c peptide (BNP) level Condition 02/19/[address] [facility] [place] Episode of Condition 2019-02-19 Memoria generalize 22:28:00 l d weakness Episode Her hernandez of generalize d weakness Condition 02/19/2019 [facility] [place] Hyperkalem Condition 2019-02-19 Memoria ia 22:28:00 [place] Hyperkalem ia Condition 02/19/[address] [facility] [place] Hypertensi Condition 2019-02-19 Memoria on with 22:28:00 l goal to be Freddy n determined Hypertensi on with goal to be determined Condition 02/19/[address] [facility] [place] Acute Condition 2019-02-19 Mem oria respirator 22:28:00 l y disease Acute Freddy n respirator y disease Condition 02/19/[address] [facility] [place] End-stage Condition 2019-02-19 Memoria renal 22:28:00 l disease on Freddy n hemodialys End-stage is renal disease on hemodialys is Condition 02/19/[address] [facility] [place] Type 2 Condition 2019-02-19 Mem oria diabetes 22:28:00 l mellitus Type 2 Freddy n diabetes mellitus Condition 02/19/[address] [facility] [place] End-stage Problem 2019-02-19 Me moria renal 22:28:00 l disease on Freddy n hemodialys End-stage is renal disease on hemodialys is Problem 02/19/[address] [facility] [place] Upper Problem 2019-02-19 Memor ia respirator 22:28:00 l y Upper Juanito infection respirator y infection Problem 02/19/[address] [facility] [place] Elevated Problem 2019-02-19 Mem oria troponin 22:28:00 l level Elevated Freddy n troponin level Problem 02/19/[address] [facility] [place] Allergies, Adverse Reactions, Alerts Allergy Allergy Status Severity Reaction(s) Onset Inactive Treating Comm ents Source Name Type Date Date Clinician Heparin Propensi Active 2018- "won't Methodi ty to 10-[address] adverse 00:00: bleeding" Hospit a reaction 00 l s to drug NO KNOWN Drug Active Univers ALLERGIE Class ity of S [facility] NO KNOWN Allergy Active [facility] ALLERGIE S Family History Family Member Diagnosis Comments Start Date Stop Date Source Natural brother [facility] father [facility] mother [facility] sister [facility] Social History Social Habit Start Date Stop Date Quantity Comments Source History SDOH [facility] Alcohol Std Drinks History SDOH [facility] Alcohol Binge History SDCO [facility] Alcohol Comment Exposure to Not sure [facility] (event) Tobacco use and 2020-07-24 2020-07-[address] [facility] Felicita kes - exposure 00:00:00 00:00:00 Medical Center Social History 2019-02-19 2019-02-19 [facility] sue 22:28:00 22:28:00 Alcohol intake 2018-10-27 2018-10-27 Current [facility] 00:00:00 00:00:00 non-drinker of alcohol (finding) History SDOH 2018-10-26 2018-10-26 1 [facility] Frequency 00:00:00 00:00:00 Sex Ass[birth year] [facility] y of 00:00:00 00:00:00 [facility] Smoking Status Start Date Stop Date Source Unknown if ever smoked [facility] Never smoker [facility] Medications Ordered Filled Start Stop Current Ordering Indication Dosage Frequency Signature Comments Components Source Medication Medication Date Date Medication? Clinician (SIG) Name Name levETIRAcet 2021- Yes 250mg Take [address] am (KEPPRA) 07-06 tablet [facility] - 250 MG 00:00: 23:59 (250 mg Medical tablet 00 :00 total) by Center mouth 3 (three) times a week after dialysis TUE/TUE/ I for 60 days. multivitami Yes 1{tbl} QD Take [address] n with 07-04 tablet by [facility] - minerals 14:35: mouth Medical tablet 35 daily. Center sucroferric Yes 500mg Q.[id number] Take [address] oxyhydroxid 07-04 [id number] mg by L ukes - e 500 mg 14:35: 3D mouth 3 Medica l Chew 35 (three) Center times daily. aspirin 81 2021- No 81mg QD Take [address] MG EC 07-04- by mouth [facility] - tablet 11:07: 00:00 daily. Medical 35 :00 Center carvediloL 2021- No 12.5mg Take 12.[address] (COREG) 07-04-02 mg by [facility] - 12.5 MG 11:07: 00:00 mouth 2 Medica l tablet 35 :00 (two) Center times daily with breakfast and dinner. atorvastati 2021- No 40mg QD Take [address] [facility] n (LIPITOR) 07-04 by mouth Ned es - 40 MG 11:07: 00:00 daily. Medical tablet 35 :00 Center isosorbide 2021- No 30mg QD Take [address] mononitrate 07-04 by mouth Ned es - (IMDUR) 30 11:07: 00:00 daily. Medi yoel MG 24 hr 35 :00 Center tablet clopidogreL 2021- No 75mg QD Take [address] [facility] (PLAVIX) 75 07-04 by mouth Ned es - mg tablet 11:07: 00:00 daily. Medic al 35 :00 Center NIFEdipine 2021- No 60mg QD Take [address] [facility] (PROCARDIA- 07-04 by mouth Ned es - XL) 60 MG 11:07: 00:00 daily. Medic al (OSM) 24 hr 35 :00 Center tablet hydrALAZINE 2021- No 50mg Q.[id number] Take [address] [facility] (APRESOLINE 07-04 [id number] by mouth 3 [facility] - ) 50 MG 11:07: 00:00 3D (three) Medica l tablet 35 :00 times Center daily. lisinopriL 2021- No 5mg QD Take [address] (PRINIVIL,Z 07-04 by mouth Ned es - ESTRIL) 5 11:07: 00:00 daily. Medic al MG tablet 35 :00 Center cefTRIAXone Yes 2g QD Inject [address] [facility] (ROCEPHIN) 07-04 intravenou Ned es - 2 g in 00:00: sly daily. Medic al sodium 00 Center chloride 0.9 % (NS) 100 mL (V2B) IVPB atorvastati 2021- Yes 40mg QD Take [address] [facility] [facility] n (LIPITOR) 07-04 tablet (40 L ukes - 40 MG 00:00: 23:59 mg total) Medica l tablet 00 :00 by mouth Center nightly for 60 days. carvediloL 2021- Yes 12.5mg Q.5D Take [address] (COREG) 07-04 tablet [facility]ukes - 12.5 MG 00:00: 23:59 (12.5 mg Medic al tablet 00 :00 total) by Center mouth 2 (two) times daily for 60 days. hydrALAZINE 2021- Yes 10mg Take [address] [facility] (APRESOLINE 07-04 tablet (10 L ukes - ) 10 MG 00:00: 23:59 mg total) Medi yoel tablet 00 :00 by mouth Center every 8 (eight) hours for 60 days. NIFEdipine 2021- Yes 20mg Take [address] [facility] [address] (PROCARDIA) 07-04 capsule Luke s - 20 MG 00:00: 23:59 (20 mg Medical capsule 00 :00 total) by Center mouth every 8 (eight) hours for 60 days. epoetin 2021- Yes anemia in 6000U Inject [address] renetta-epbx 07-04 chronic mLs (6,000 [facility] - (RETACRIT) 00:00: 23:59 kidney Units Med ical 3,000 00 :00 disease total) Center unit/mL subcutaneo Soln usly 3 injection (three) times a week at bedtime E/TUE/ T for 60 days. levETIRAcet 2021- Yes 500mg QD Take [address] am (KEPPRA) 07-04 tablet [facility] - 500 MG 00:00: 23:59 (500 mg Medical tablet 00 :00 total) by Center mouth nightly for 60 days. insulin 2021- No Use as [facility] regular 07-04 directed. [facility] - (HumuLIN 00:00: 00:00 Medical R,NovoLIN 00 :00 Center R) 100 unit/mL injection insulin 2021- No Use as [facility] regular 07-04 directed. [facility] - (HumuLIN 00:00: 00:00 Medical R,NovoLIN 00 :00 Center R) 100 unit/mL injection atorvastati Yes 40mg QD Take [address] [facility] n (LIPITOR) 4-01 by mouth Luke s - 40 MG 13:18: daily. Medical tablet 59 Center isosorbide 0 Yes 30mg QD Take [address] mononitrate 4-01 by mouth Luke s - (IMDUR) 30 13:18: daily. Medic al MG 24 hr 59 Center tablet clopidogreL 0 Yes 75mg QD Take [address] [facility] (PLAVIX) 75 4-01 by mouth Luke s - mg tablet 13:18: daily. Medica l 59 Center NIFEdipine 0 Yes 60mg QD Take [address] (PROCARDIA- 4 by mouth Luke s - XL) 60 MG 13:18: daily. Medica l (OSM) 24 hr 59 Center tablet hydrALAZINE Yes 50mg Q.[id number] Take [address] [facility] (APRESOLINE 07-03 [id number] by mouth 3 [facility] - ) 50 MG 13:18: 3D (three) Medical tablet 59 times Center daily. multivitami Yes 1{tbl} QD Take [address] n with 4- tablet by [facility]ukes - minerals 13:18: mouth Medical tablet 59 daily. [place] lisinopriL Yes 5mg QD Take [address] (PRINIVIL,Z 4- by mouth Luke s - ESTRIL) 5 13:18: daily. Medica l MG tablet 59 Center sucroferric Yes 500mg Q.[id number] Take [address] oxyhydroxid 07-03 [id number] mg by L ukes - e 500 mg 13:18: 3D mouth 3 Medica l Chew 59 (three) Center times daily. atorvastati 0 Yes 40mg QD Take [address] [facility] n (LIPITOR) 3-30 by mouth Luke s - 40 MG 12:54: daily. Medical tablet 15 Center isosorbide 0 Yes 30mg QD Take [address] mononitrate 3-30 by mouth Luke s - (IMDUR) 30 12:54: daily. Medic al MG 24 hr 15 Center tablet clopidogreL 0 Yes 75mg QD Take [address] [facility] (PLAVIX) 75 3-30 by mouth Luke s - mg tablet 12:54: daily. Medica l 15 Center NIFEdipine 0 Yes 60mg QD Take [address] (PROCARDIA- 3-30 by mouth Luke s - XL) 60 MG 12:54: daily. Medica l (OSM) 24 hr 15 Center tablet hydrALAZINE 0 Yes 50mg Q.[id number] Take [address] [facility] (APRESOLINE 3-30 [id number] by mouth 3 [facility] - ) 50 MG 12:54: 3D (three) Medical tablet 15 times Center daily. multivitami 0 Yes 1{tbl} QD Take [address] n with 3-30 tablet by [facility]ukes - minerals 12:54: mouth Medical tablet 15 daily. Center lisinopriL 0 Yes 5mg QD Take [address] (PRINIVIL,Z 3-30 by mouth Luke s - ESTRIL) 5 12:54: daily. Medica l MG tablet 15 Center sucroferric Yes 500mg Q.[id number] Take [address] oxyhydroxid 3-30 [id number] mg by L ukes - e 500 mg 12:54: 3D mouth 3 Medica l Chew 15 (three) Center times daily. atorvastati 0 Yes 40mg QD Take [address] [facility] n (LIPITOR) 3-30 by mouth Luke s - 40 MG 12:54: daily. Medical tablet 15 Center isosorbide 0 Yes 30mg QD Take [address] mononitrate 3-30 by mouth Luke s - (IMDUR) 30 12:54: daily. Medic al MG 24 hr 15 Center tablet clopidogreL 0 Yes 75mg QD Take [address] [facility] [address] (PLAVIX) 75 3-30 by mouth Luke s - mg tablet 12:54: daily. Medica l 15 Center NIFEdipine 0 Yes 60mg QD Take [address] (PROCARDIA- 3-30 by mouth Luke s - XL) 60 MG 12:54: daily. Medica l (OSM) 24 hr 15 Center tablet hydrALAZINE 0 Yes 50mg Q.[id number] Take [address] [facility] [address] (APRESOLINE 3-30 [id number] by mouth 3 [facility] - ) 50 MG 12:54: 3D (three) Medical tablet 15 times Center daily. multivitami 0 Yes 1{tbl} QD Take [address] n with 3-30 tablet by [facility]ukes - minerals 12:54: mouth Medical tablet 15 daily. Center lisinopriL 0 Yes 5mg QD Take [address] (PRINIVIL,Z 3-30 by mouth Luke s - ESTRIL) 5 12:54: daily. Medica l MG tablet 15 Center sucroferric 0 Yes 500mg Q.[id number] Take [address] oxyhydroxid 3-30 [id number] mg by L ukes - e 500 mg 12:54: 3D mouth 3 Medica l Chew 15 (three) Center times daily. atorvastati 0 Yes 40mg QD Take [address] [facility] n (LIPITOR) 3-30 by mouth Luke s - 40 MG 08:40: daily. Medical tablet 18 Center isosorbide 0 Yes 30mg QD Take [address] mononitrate 3-30 by mouth Luke s - (IMDUR) 30 08:40: daily. Medic al MG 24 hr 18 Center tablet clopidogreL 0 Yes 75mg QD Take [address] [facility] (PLAVIX) 75 3-30 by mouth Luke s - mg tablet 08:40: daily. Medica l 18 Center NIFEdipine 0 Yes 60mg QD Take [address] (PROCARDIA- 3-30 by mouth Luke s - XL) 60 MG 08:40: daily. Medica l (OSM) 24 hr 18 Center tablet hydrALAZINE 0 Yes 50mg Q.[id number] Take [address] [facility] (APRESOLINE 3-30 [id number] by mouth 3 [facility] - ) 50 MG 08:40: 3D (three) Medical tablet 18 times Center daily. multivitami 0 Yes 1{tbl} QD Take [address] n with 3-30 tablet by [facility]ukes - minerals 08:40: mouth Medical tablet 18 daily. [place] lisinopriL 0 Yes 5mg QD Take [address] (PRINIVIL,Z 3-30 by mouth Luke s - ESTRIL) 5 08:40: daily. Medica l MG tablet 18 Center sucroferric 2022-0 Yes 500mg Q.[id number] Take [address] oxyhydroxid 3-30 [id number] mg by L ukes - e 500 mg 08:40: 3D mouth 3 Medica l Chew 18 (three) Center times daily. atorvastati Yes 40mg QD Take [address] [facility] n (LIPITOR) 3-28 by mouth Luke s - 40 MG 14:25: daily. Medical tablet Center isosorbide Yes 30mg QD Take [address] mononitrate 3-28 by mouth Luke s - (IMDUR) 30 14:25: daily. Medic al MG 24 hr 01 Center tablet clopidogreL Yes 75mg QD Take [address] [facility] [address] (PLAVIX) 75 3-28 by mouth Luke s - mg tablet 14:25: daily. Medica l 01 Center NIFEdipine Yes 60mg QD Take [address] (PROCARDIA- 3-28 by mouth Luke s - XL) 60 MG 14:25: daily. Medica l (OSM) 24 hr Center tablet hydrALAZINE Yes 50mg Q.[id number] Take [address] [facility] (APRESOLINE 3-28 [id number] by mouth 3 [facility] - ) 50 MG 14:25: 3D (three) Medical tablet 01 times Center daily. multivitami Yes 1{tbl} QD Take [address] n with 3-28 tablet by [facility]ukes - minerals 14:25: mouth Medical tablet 01 daily. [place] lisinopriL Yes 5mg QD Take [address] (PRINIVIL,Z 3-28 by mouth Luke s - ESTRIL) 5 14:25: daily. Medica l MG tablet Center sucroferric Yes 500mg Q.[id number] Take [address] oxyhydroxid 3-28 [id number] mg by L ukes - e 500 mg 14:25: 3D mouth 3 Medica l Chew 01 (three) Center times daily. atorvastati Yes 40mg QD Take [address] [facility] n (LIPITOR) 3-28 by mouth Luke s - 40 MG 09:34: daily. Medical tablet 22 Center isosorbide Yes 30mg QD Take [address] mononitrate 3-28 by mouth Luke s - (IMDUR) 30 09:34: daily. Medic al MG 24 hr 22 Center tablet clopidogreL 0 Yes 75mg QD Take [address] [facility] [address] (PLAVIX) 75 3-28 by mouth Luke s - mg tablet 09:34: daily. Medica l 22 Center NIFEdipine 0 Yes 60mg QD Take [address] (PROCARDIA- 3-28 by mouth Luke s - XL) 60 MG 09:34: daily. Medica l (OSM) 24 hr 22 Center tablet hydrALAZINE 0 Yes 50mg Q.[id number] Take [address] [facility] [address] (APRESOLINE 3-28 [id number] by mouth 3 [facility] - ) 50 MG 09:34: 3D (three) Medical tablet 22 times Center daily. multivitami 0 Yes 1{tbl} QD Take [address] n with 3-28 tablet by [facility]ukes - minerals 09:34: mouth Medical tablet 22 daily. Center lisinopriL 0 Yes 5mg QD Take [address] (PRINIVIL,Z 3-28 by mouth Luke s - ESTRIL) 5 09:34: daily. Medica l MG tablet 22 Center sucroferric Yes 500mg Q.[id number] Take [address] oxyhydroxid 3- [id number] mg by L ukes - e 500 mg 09:34: 3D mouth 3 Medica l Chew 22 (three) Center times daily. atorvastati 0 Yes 40mg QD Take [address] [facility] n (LIPITOR) 3-25 by mouth Luke s - 40 MG 20:31: daily. Medical tablet 49 Center isosorbide 0 Yes 30mg QD Take [address] mononitrate 3-25 by mouth Luke s - (IMDUR) 30 20:31: daily. Medic al MG 24 hr 49 Center tablet clopidogreL 0 Yes 75mg QD Take [address] [facility] [address] (PLAVIX) 75 3-25 by mouth Luke s - mg tablet 20:31: daily. Medica l 49 Center NIFEdipine 0 Yes 60mg QD Take [address] (PROCARDIA- 3-25 by mouth Luke s - XL) 60 MG 20:31: daily. Medica l (OSM) 24 hr 49 Center tablet hydrALAZINE 2021-0 Yes 50mg Q.[id number] Take [address] [facility] [address] (APRESOLINE 3-25 [id number] by mouth 3 [facility] - ) 50 MG 20:31: 3D (three) Medical tablet 49 times Center daily. multivitami 2021-0 Yes 1{tbl} QD Take [address] n with 3-25 tablet by [facility]ukes - minerals 20:31: mouth Medical tablet 49 daily. Center lisinopriL 2021-0 Yes 5mg QD Take [address] (PRINIVIL,Z 3-25 by mouth Luke s - ESTRIL) 5 20:31: daily. Medica l MG tablet 49 Center sucroferric 2021-0 Yes 500mg Q.[id number] Take [address] oxyhydroxid 3-25 [id number] mg by L ukes - e 500 mg 20:31: 3D mouth 3 Medica l Chew 49 (three) Center times daily. isosorbide 2021-0 Yes 30mg QD Take [address] mononitrate 3-20 by mouth Luke s - (IMDUR) 30 18:09: daily. Medic al MG 24 hr 15 Center tablet clopidogreL 2021-0 Yes 75mg QD Take [address] [facility] [address] (PLAVIX) 75 3-20 by mouth Luke s - mg tablet 18:09: daily. Medica l 15 Center NIFEdipine 2021-0 Yes 60mg QD Take [address] (PROCARDIA- 3-20 by mouth Luke s - XL) 60 MG 18:09: daily. Medica l (OSM) 24 hr 15 Center tablet hydrALAZINE 2021-0 Yes 50mg Q.[id number] Take [address] [facility] [address] (APRESOLINE 3-20 [id number] by mouth 3 [facility] - ) 50 MG 18:09: 3D (three) Medical tablet 15 times Center daily. multivitami 2021-0 Yes 1{tbl} QD Take [address] n with 3-20 tablet by [facility]ukes - minerals 18:09: mouth Medical tablet 15 daily. Center lisinopriL 2-0 Yes 5mg QD Take [address] (PRINIVIL,Z 3-20 by mouth Luke s - ESTRIL) 5 18:09: daily. Medica l MG tablet 15 Center sucroferric 0 Yes 500mg Q.[id number] Take [address] oxyhydroxid 3-20 [id number] mg by L ukes - e 500 mg 18:09: 3D mouth 3 Medica l Chew 15 (three) Center times daily. atorvastati 0 Yes 40mg QD Take [address] [facility] n (LIPITOR) 3-20 by mouth Luke s - 40 MG 18:09: daily. Medical tablet 15 Center isosorbide 0 Yes 30mg QD Take [address] mononitrate 3-20 by mouth Luke s - (IMDUR) 30 18:09: daily. Medic al MG 24 hr 15 Center tablet clopidogreL 0 Yes 75mg QD Take [address] [facility] [address] (PLAVIX) 75 3-20 by mouth Luke s - mg tablet 18:09: daily. Medica l 15 Center NIFEdipine 0 Yes 60mg QD Take [address] (PROCARDIA- 3-20 by mouth Luke s - XL) 60 MG 18:09: daily. Medica l (OSM) 24 hr 15 Center tablet hydrALAZINE 0 Yes 50mg Q.[id number] Take [address] [facility] [address] (APRESOLINE 3-20 [id number] by mouth 3 [facility] - ) 50 MG 18:09: 3D (three) Medical tablet 15 times Center daily. multivitami 0 Yes 1{tbl} QD Take [address] n with 3-20 tablet by [facility]ukes - minerals 18:09: mouth Medical tablet 15 daily. [place] lisinopriL 0 Yes 5mg QD Take [address] (PRINIVIL,Z 3-20 by mouth Luke s - ESTRIL) 5 18:09: daily. Medica l MG tablet 15 Center sucroferric 0 Yes 500mg Q.[id number] Take [address] oxyhydroxid 3-20 [id number] mg by L ukes - e 500 mg 18:09: 3D mouth 3 Medica l Chew 15 (three) Center times daily. atorvastati 0 Yes 40mg QD Take [address] [facility] n (LIPITOR) 3-20 by mouth Luke s - 40 MG 18:09: daily. Medical tablet 15 Center atorvastati 2021- No 40mg Take 40 mg Univers n 40 mg -14 06-01 by mouth ity of tablet 13:03: 00:00 at [place] 38 :00 bedtime. Medical Branch aspirin 81 Yes 81mg QD Take [address] MG EC 3-07 by mouth [facility] - tablet 04:45: daily. [address] carvediloL Yes 12.5mg Take 12.[address] (COREG) 3-07 mg by [facility] - 12.5 MG 04:45: mouth 2 Medical tablet 04 (two) Center times daily with breakfast and dinner. aspirin 81 Yes 81mg QD Take [address] [facility] 3-07 [facility] 04:45: daily. [address] carvediloL Yes 12.5mg Take 12.[address] [facility] (COREG) 3-07 mg by [facility] - 12.5 MG 04:45: mouth 2 Medical tablet 04 (two) Center times daily with breakfast and dinner. aspirin 81 Yes 81mg QD Take [address] MG EC 3-07 [facility] - tablet 04:45: daily. [address] carvediloL Yes 12.5mg Take 12.[address] [facility] [address] (COREG) 3-07 mg by [facility] - 12.5 MG 04:45: mouth 2 Medical tablet 04 (two) Center times daily with breakfast and dinner. aspirin 81 Yes 81mg QD Take [address] MG EC 3-07 by [facility] - tablet 04:45: daily. [address] carvediloL Yes 12.5mg Take 12.[address] [facility] [address] (COREG) 3-07 mg by [facility] - 12.5 MG 04:45: mouth 2 Medical tablet 04 (two) Center times daily with breakfast and dinner. aspirin 81 0 Yes 81mg QD Take [address] MG EC 3-07 by mouth [facility] - tablet 04:45: daily. [address] carvediloL Yes 12.5mg Take 12.[address] [facility] [address] (COREG) 3-07 mg by [facility] - 12.5 MG 04:45: mouth 2 Medical tablet 04 (two) Center times daily with breakfast and dinner. aspirin 81 2021-0 Yes 81mg QD Take [address] MG EC 3-07 by mouth [facility] - tablet 04:45: daily. [address] carvediloL 0 Yes 12.5mg Take 12.[address] [facility] [address] (COREG) 3-07 mg by [facility] - 12.5 MG 04:45: mouth 2 Medical tablet 04 (two) Center times daily with breakfast and dinner. aspirin 81 2021-0 Yes 81mg QD Take [address] MG EC 3-07 by mouth [facility] - tablet 04:45: daily. [address] carvediloL 0 Yes 12.5mg Take 12.[address] [facility] [address] (COREG) 3-07 mg by [facility] - 12.5 MG 04:45: mouth 2 Medical tablet 04 (two) Center times daily with breakfast and dinner. aspirin 81 2021-0 Yes 81mg QD Take [address] MG EC 3-07 by mouth [facility] - tablet 04:45: daily. [address] carvediloL 0 Yes 12.5mg Take 12.[address] [facility] [address] (COREG) 3-07 mg by [facility] - 12.5 MG 04:45: mouth 2 Medical tablet 04 (two) Center times daily with breakfast and dinner. aspirin 81 2021-0 Yes 81mg QD Take [address] MG EC 3-07 by mouth [facility] tablet 04:45: daily. [address] carvediloL 0 Yes 12.5mg Take 12.[address] [facility] [address] (COREG) 3-07 mg by [facility] - 12.5 MG 04:45: mouth 2 Medical tablet 04 (two) Center times daily with breakfast and dinner. aspirin 81 0 2021- Yes [id number] 81mg Take 1 [facility] mg chewable 05-23- tablet by it y of tablet 00:00: 04:59 mouth [place] 00 :00 daily for Medical 30 days. Branch clopidogreL 2021-2021- Yes [id number] 75mg Take 1 [facility] 75 mg 2-20 06- tablet by ity of tablet 00:00: 04:59 mouth [place] 00 :00 daily for Medical 30 days. Branch isosorbide 2021- Yes [id number] 30mg Take 1 [facility] mononitrate 05-23- tablet by it y of 30 mg 24 hr 00:00: 04:59 [place] tablet 00 :00 daily for Medical 30 days. Branch lisinopriL 2021- Yes [id number] 5mg Take 1 [facility] 5 mg tablet 05-23 tablet by it y of 00:00: 04:59 mouth [place] 00 :00 daily for Medical 30 days. Branch vitamin b 2021- Yes [id number] 1{tbl} Take 1 [facility] complex-vit 05-23 tablet by it y of mill[place] 00:00: 04:59 mouth [place] c-folic 00 :00 daily for Medical acid 0.8 mg 30 days. Bran ch tablet aspirin 81 2021- Yes [id number] 81mg Take 1 [facility] mg chewable 05-23 tablet by it y of tablet 00:00: 04:59 mouth [place] 00 :00 daily for Medical 30 days. Branch clopidogreL 2021- Yes [id number] 75mg Take 1 [facility] 75 mg 05-23 tablet by ity of tablet 00:00: 04:59 mouth [place] 00 :00 daily for Medical 30 days. Branch isosorbide 2021- Yes [id number] 30mg Take 1 [facility] mononitrate 05-23 tablet by it y of 30 mg 24 hr 00:00: 04:59 [place] tablet 00 :00 daily for Medical 30 days. Branch lisinopriL 2021- Yes [id number] 5mg Take 1 [facility] 5 mg tablet 05-23 tablet by it y of 00:00: 04:59 mouth [place] 00 :00 daily for Medical 30 days. Branch vitamin b 2021- Yes [id number] 1{tbl} Take 1 [facility] complex-vit 05-23 tablet by it y of miller 00:00: 04:59 mouth [place] c-folic 00 :00 daily for Medical acid 0.8 mg 30 days. Bran ch tablet aspirin 81 2021- Yes [id number] 81mg Take 1 [facility] mg chewable 05-23 tablet by it y of tablet 00:00: 04:59 mouth [place] 00 :00 daily for Medical 30 days. Branch clopidogreL 2021- Yes [id number] 75mg Take 1 [facility] 75 mg 05-23 tablet by ity of tablet 00:00: 04:59 mouth [place] 00 :00 daily for Medical 30 days. Branch isosorbide 2021- Yes [id number] 30mg Take 1 [facility] mononitrate 05-23 tablet by it y of 30 mg 24 hr 00:00: 04:59 [place] tablet 00 :00 daily for Medical 30 days. Branch lisinopriL 2021- Yes [id number] 5mg Take 1 [facility] 5 mg tablet 05-23 tablet by it y of 00:00: 04:59 mouth [place] 00 :00 daily for Medical 30 days. Branch vitamin b 2021- Yes [id number] 1{tbl} Take 1 Univers complex-vit 05-23 tablet [...] 21:15: [place] ORAL) 58 Medical Branch NIFEDIPINE 2021- No Take by Un kecia ORAL 2-18 02-18 mouth. ity of 17:12: 00:00 [place] 42 :00 Medical Branch aspirin 81 2021- No 81mg Take 81 mg Univers mg chewable -18 -18 by mouth ity of tablet 17:12: 00:00 daily. [place] 42 :00 Medical Branch nitroglycer [id number] 1 Univers in 0.4 mg 2-18 tablet ity of sublingual 00:00: under the [place] tablet 00 tongue Medical every 5 Branch (five) minutes as needed for Chest pain. nitroglycer Yes [id number] .4mg Place 1 Univers in 0.4 mg 2-18 tablet ity of sublingual 00:00: under the [place] tablet 00 tongue Medical every 5 Branch (five) minutes as needed for Chest pain. nitroglycer Yes [id number] .4mg Place 1 Univers in 0.4 mg 2-18 tablet ity of sublingual 00:00: under the [place] tablet 00 tongue Medical every 5 Branch (five) minutes as needed for Chest pain. atorvastati 2021- Yes [id number] 40mg Take 1 Univers n 40 mg 2-18 -21 tablet by ity of tablet 00:00: 04:59 mouth at [place] 00 :00 bedtime Medical for 30 Branch days. carvediloL 2021- Yes [id number] 6.25mg Take 1 Univers 6.25 mg 2-18 -21 tablet by ity of tablet 00:00: 04:59 mouth 2 [place] 00 :00 (two) Medical times Branch daily with meals for 30 days. NIFEdipine 2021- Yes [id number] 60mg Take 1 Univers ER 60 mg 2-18 -21 tablet by ity o f tablet 00:00: 04:59 mouth 2 [place] 00 :00 (two) Medical times Branch daily for 30 days. atorvastati 2021- Yes [id number] 40mg Take 1 Univers n 40 mg 2-18 -21 tablet by ity of tablet 00:00: 04:59 mouth at [place] 00 :00 bedtime Medical for 30 Branch days. carvediloL 2021- Yes [id number] 6.25mg Take 1 Univers 6.25 mg 2-18 -21 tablet by ity of tablet 00:00: 04:59 mouth 2 [place] 00 :00 (two) Medical times Branch daily with meals for 30 days. NIFEdipine 2021- Yes [id number] 60mg Take 1 Univers ER 60 mg 05-22 tablet by ity o f tablet 00:00: 04:59 mouth 2 [place] 00 :00 (two) Medical times Branch daily for 30 days. atorvastati 2021- Yes [id number] 40mg Take 1 Univers n 40 mg 05-22 tablet by ity of tablet 00:00: 04:59 mouth at [place] 00 :00 bedtime Medical for 30 Branch days. carvediloL 2021- Yes [id number] 6.25mg Take 1 Univers 6.25 mg 05-22 tablet by ity of tablet 00:00: 04:59 mouth 2 [place] 00 :00 (two) Medical times Branch daily with meals for 30 days. NIFEdipine 2021- Yes [id number] 60mg Take 1 Univers ER 60 mg 05-22 tablet by ity o f tablet 00:00: 04:59 mouth 2 [place] 00 :00 (two) Medical times Branch daily [...] 1 [place] 00 :00 dose, On Medical Astrid Branch 05/21/21 at 0730, Routine HYDROcodone 2021- No 1{tbl} 1 tablet, Univers -acetaminop 05-21 Oral, ity of hen (NORCO 01:00: 00:17 ONCE, 1 [facility] as 5) 5-325 mg 00 :00 dose, On Medi yoel tablet 1 Wed Branch tablet 05/20/21 at 1900, Routine isosorbide Yes 30mg 30 mg, Unive rs mononitrate 2-16 Oral, ity of (IMDUR) 24 15:00: DAILY, [place] hr tablet 00 First dose Medi yoel 30 mg on Tue05/20/21 at 0900, Until Discontinu ed, Routine vitamin b Yes [id number] 1{tbl} 1 tablet, Univers complex-vit 2-16 Oral, ity of miller 15:00: DAILY, [place] c-folic 00 First dose Medica l acid on Tue (NEPHRO-VIT 05/20/21 at E) 0.8 mg 0900, tablet 1 Until tablet Discontinu ed, Routine clopidogreL 2021- No 75mg 75 mg, Uni vers (PLAVIX) 2-16 02-16 Oral, ity of tablet 75 15:00: 15:04 DAILY, [place] mg 00 :38 First dose Medical on Tue05/20/21 at 0900, Until Discontinu ed, Routine atorvastati 0 Yes [id number] 40mg 40 mg, Univers n (LIPITOR) 2-16 Oral, QHS, it y of tablet 40 03:00: First dose [place] mg 00 on Tue [facility] 05/19/21 at Branch 2100, Until Discontinu ed, Routine NIFEdipine 0 Yes [id number] 60mg 60 mg, U nivers ER tablet 2-16 Oral, BID, ity of 60 mg 02:00: First dose [place] 00 (after Medical last Branch modificati on) on Tue05/19/21 at 2000, Until Discontinu ed, Routine lisinopriL 0 Yes [id number] 5mg 5 mg, Un kecia (PRINIVIL,Z 2-15 Oral, ity of ESTRIL) 20:45: DAILY, [place] tablet 5 mg 00 First dose Me dical on Tue Branch 05/19/21 at 1445, Until Discontinu ed, Routine traMADoL 0 Yes 50mg 50 mg, Univers (ULTRAM) 2-12 Oral, ity of tablet 50 21:59: Q6HPRN, [place] mg 37 Starting Medical on [facility] Branch 05/16/21 at 1559, Until Discontinu ed, Routine, Pain (scale 4-6) aspirin 0 Yes 81mg 81 mg, Univers chewable 2-12 Oral, ity of tablet 81 15:00: DAILY, [place] mg 00 First dose Medical on Sat Branch 05/16/21 at 0900, Until Discontinu ed, Routine NIFEdipine 2021-2021- No 60mg 60 mg, Univ ers ER tablet 05-16-15 Oral, ity of 60 mg 15:00: 20:33 DAILY, [place] 00 :49 First dose Medical on Sat Branch 05/16/21 at 0900, Until Discontinu ed, Routine Sliding Yes Subcutaneo Univ ers Scale 2-12 us, AC, ity of Insulin-Reg 13:30: First dose [place] ular + Fsbg 00 on Sat Medica l Testing 05/16/21 at Branch 0730, Until Discontinu ed, Routine hydralAZINE Yes 10mg 10 mg, Univ ers (APRESOLINE 2-12 Slow IV ity o f ) injection 05:36: Push, [place] 10 mg 44 Q4HPRN, Medical Starting Branch on Tue05/15/21 at 2336, Until Discontinu ed, Routine, DBP=>10 0; SBP=>160, DBP=>100; SBP=>180<b r>Indicati on: Hypertensi ve Emergency glucagon Yes 1mg 1 mg, Univers (GLUCAGEN 2-12 Intramuscu ity of DIAGNOSTIC 05:30: lar, PRN, [place] KIT) 08 Starting Medical injection 1 on Fri Branch mg 05/15/21 at 2330, Until Discontinu ed, MATTHEW, Blood Glucose < or = 70 mg/dL and patient is unable to swallow or has mental changes. dextrose 50 0 Yes 25mL 25 mL, Univ ers % [...] [place] 5,000 Units 00 us, Q8H, Medi yoel First dose Branch on Tue05/15/21 at 2200, Until Discontinu ed, Routine carvediloL 0 Yes 6.25mg 6.25 mg, U nivers (COREG) 2-12 Oral, BID ity of tablet 6.25 01:00: MEALS, [place] mg 00 First dose Medical on Fri Branch 05/15/21 at 1900, Until Discontinu ed, Routine
membership solicitor approving Restricted medication : NEIL THOMAS aspirin 2021-0 2021- No 325mg 325 mg, Unive rs tablet 325 05-16 Oral, ity of mg 01:00: 01:57 ONCE, 1 [place] 00 :00 dose, On Medical Fri Branch 05/15/21 at 1900, Routine nitroglycer 0 Yes .4mg 0.4 mg, Uni vers in 05-16 Sublingual ity of (NITROSTAT) 00:57: , Q5MIN [facility] as sublingual 18 PRN, Medical tablet 0.4 Starting Branc h mg on Tue05/15/21 at 1857, Until Discontinu ed, Routine, Chest pain ondansetron 2021-0 Yes 4mg 4 mg, Slow Univers (ZOFRAN 05-16 IV Push, ity of (PF)) 00:56: Q6HPRN, [place] injection 4 53 Starting Medi yoel mg on Tue Branch 05/15/21 at 1856, Until Discontinu ed, Routine, Nausea and Vomiting (N/V) acetaminoph 0 Yes 650mg 650 mg, Un kecia en 05-16 Oral, ity of (TYLENOL) 00:56: Q6HPRN, [place] tablet 650 38 Starting Medic al mg on Tue Branch 05/15/21 at 1856, Until Discontinu ed, Routine, Pain (scale 1-3), Temp > 38.5 C ondansetron 2021-0 202- No 4mg 4 mg, Slow Univers (ZOFRAN 05-15 IV Push, ity of (PF)) 23:30: 22:34 ONCE, 1 [place] injection 4 00 :00 dose, On Medi yoel mg Tue Branch 05/15/21 at 1730, MATTHEW morpHINE 2021-0 202- No 4mg 4 mg, Slow Un kecia injection 4 05-15 IV Push, ity of mg 23:30: 22:34 ONCE, 1 [place] 00 :00 dose, On Medical Fri Branch 05/15/21 at 1730, STAT iopamidol 2021- No [id number] 100mL 100 mL, Univers (ISOVUE 05-15 Intravenou ity o f 370-500 mL) 22:00: 22:00 s, ONCE, 1 [place] injection 00 :00 dose, On Medica l 100 mL Fri Branch 05/15/21 at 1600, Routine hydrALAZINE Yes 100mg Take 100 U nivers 100 mg 2-11 mg by ity of tablet 11:29: mouth [place] 28 every 8 Medical (eight) Branch hours. METOPROLOL Yes Univers TARTRATE, 2-11 ity of BULK, MISC 11:29: [address] losartan 50 0 Yes 100mg Take 100 U nivers mg tablet 2-11 mg by ity of 11:29: mouth [place] 28 daily. [facility] Branch CARVEDILOL Yes Take by Uni vers ORAL 2-11 mouth. ity of 11:29: [address] NIFEdipine 0 Yes 60mg Take 60 mg U nivers ER 60 mg 2-11 by mouth ity of tablet 11:29: daily. [address] aspirin 81 0 Yes 81mg QD Take [address] MG EC 5-27 [facility] 15:07: daily. [address] carvediloL Yes 12.5mg Take 12.[address] [facility] [address] (COREG) 5-27 mg by [facility] - 12.5 MG 15:07: mouth 2 Medical tablet 20 (two) Center times daily with breakfast and dinner. aspirin 81 0 Yes 81mg QD Take [address] MG EC 5-27 by mouth [facility] - tablet 15:07: daily. [address] carvediloL Yes 12.5mg Take 12.[address] (COREG) 5-27 mg by [facility] - 12.5 MG 15:07: mouth 2 Medical tablet 20 (two) Center times daily with breakfast and dinner. doxazosin 4 Yes 4mg Take 4 mg U nivers mg tablet 1-13 by mouth 2 ity of 13:19: (two) [place] 55 times Medical daily. Branch sevelamer Yes 4{tbl} Take 4 Univ ers carbonate 1-13 tablets by ity of (RENVELA 13:19: mouth 3 [place] ORAL) 55 (three) Medical times Branch daily. metOLazone Yes 5mg Take 5 mg Un kecia 5 mg tablet 1-13 by mouth ity of 13:19: daily. [place] 55 Medical Branch furosemide Yes 80mg Take 80 mg U nivers 80 mg 1-13 by mouth ity of tablet 13:19: every [place] [address] morning Medical and Branch evening. metoclopram Yes 5mg Take 5 mg U nivers ginny HCl 5 1-13 by mouth ity of mg tablet 13:19: before [place] [address] meals and Medical at Branch bedtime. Albuterol 2018-04 Yes Memoria Sulfate 1-17 l 19:50: Hydralazine 2018-04 Yes Memori a 1-17 l 19:50: Aspirin 2018-04 Yes Memoria Chewable 1-17 l 19:50: Doxazosin 2018-04 Yes Memoria 1-17 l 19:50: Sevelamer 2018-04 Yes Memoria Carbonate 1-17 l 19:50: Carvedilol 2018-04 Yes Memoria 1-17 l 19:15: Metoprolol 2018-04 Yes Memoria Tartrate 1-17 l 19:15: Metoclopram 2018-04 Yes Memori a ginny Hcl 1-17 l 19:15: Clopidogrel 2018-04 Yes Memori a Bisulfate 1-17 l 19:15: Pantoprazol 2018-04 Yes Memori a e 1-17 l 19:15: aspirin 81 Yes 81mg Take 81 mg U nivers mg chewable 9-11 by mouth ity of tablet 09:14: daily. [address] insulin 2018-0 Yes 12U inject 12 Unive rs glargine,hu 9-11 Units ity of m.rec.anlog 09:14: under the [place] (LANTUS 52 skin at Medical U-100 bedtime. [place] INSULIN SC) NOVOLOG 2018- Yes 12U inject 12 Unive rs U-100 9-11 Units ity of INSULIN 09:14: under the [place] ASPART SC 52 skin 3 Medical (three) Branch times daily before meals. ergocalcife Yes [id number] Q7D Take Meth ale rol 7-25 50,[address] (VITAMIN 15:19: Units by Hospi ta D2) 50,000 42 mouth once l unit a week. capsule multivitami Yes 1{tbl} QD Take 1 Me thodi n 7-[address] (DAILY-LARON 15:19: mouth Hospi ta ORAL) 42 daily. l doxazosin Yes 4mg Q.5D Take 4 mg Met hodi (CARDURA) 4 7-[address] MG tablet 15:19: (two) Hospita 42 times a l day. atorvastati Yes 40mg QD Take 40 mg Methodi n (LIPITOR) 7-[address] 40 MG 15:19: daily. Hospita tablet 42 l pantoprazol Yes 40mg QD Take 40 mg Methodi e 7-[address] (PROTONIX) 15:19: daily. Hospi ta 40 MG EC 42 l tablet isosorbide Yes 30mg QD Take 30 mg M ethodi mononitrate 7-[address] (IMDUR) 30 15:19: daily. Hospi ta MG 24 hr 42 l tablet metOLazone 0 Yes TK 1 T PO Me thodi (ZAROXOLYN) 7-[address] 5 MG tablet 00:00: Hospit a 00 l metoprolol 2018-0 Yes TK 1 T PO Me thodi tartrate 7-[address] (LOPRESSOR) 00:00: Hospit a 25 mg 00 l tablet Atorvastati 0 Yes Salman AT BEDTIME Memoria n Calcium 7-10 Paul l 00:00: Metoprolol 2018-0 Yes Salman TWICE Dickson kulwinder Tartrate 7-10 Paul DAILY l 00:00: Losartan 2018-0 Yes Salman DAILY Memori a Potassium 7-10 Paul l 00:00: Clopidogrel 2018-0 Yes [place]man DAILY Mem oria Bisulfate 7-10 Paul l 00:00: Metolazone 2019-0 Yes Salman DAILY Dickson kulwinder 7-10 Paul l 00:00: Aspirin 2019-0 Yes [place]man DAILY Memoria 7-10 Paul l 00:00: Furosemide 2019-0 Yes Salman TWICE Dickson kulwinder 7-10 Paul DAILY AT l 00:00: 9am & 5pm aspirin 2018-0 Yes Methodi (ECOTRIN) 7-10 st 81 MG 00:00: Hospita enteric 00 l coated tablet furosemide 2018-0 Yes Take by Meth ale (LASIX) 40 7-[address] mg tablet 00:00: Hospita 00 l Atorvastati 2019-0 Yes Memori a n Calcium 7-09 l 10:23: Lisinopril 2018-0 Yes Memoria 7-09 l 10:23: Doxazosin 2018-0 Yes TWICE Memoria 7-09 DAILY l 00:00: Folic 2018-0 Yes DAILY Memoria Acid/Vit B 7-09 l Complex And 00:00: Freddy n C Hydralazine 2018-0 Yes Q8H Memori a Hcl 7-09 l 00:00: Lactulose 2019-0 Yes DAILY PRN Mem oria 7-09 For l 00:00: Constipati on Lanthanum 2018-0 Yes THREE Memoria Carbonate 7-09 TIMES A l 00:00: DAY Atorvastati 2018-0 Yes AT BEDTIME Memoria n Calcium 7-09 l 00:00: Nifedipine 2019-0 Yes TWICE Memori a 7-09 DAILY l 00:00: Lisinopril 2019-0 Yes TWICE Memori a 7-09 DAILY l 00:00: Pantoprazol 2019-0 Yes DAILY Memor ia e 7-09 l 00:00: Sennosides/ 2019-0 Yes TWICE Memor ia Docusate 7-09 DAILY l Sodium 00:00: Sevelamer 2019-0 Yes THREE Memoria Carbonate 7-09 TIMES A l 00:00: DAY hydrALAZINE 2018-0 Yes 1{tbl} Take 1 Me thodi (APRESOLINE 7-[address] ) 100 MG 00:00: mouth. Hospita tablet 00 l lactulose 2018-0 Yes Take by Metho di (CEPHULAC) 7-[address] 10 gram 00:00: Hospita packet 00 l lanthanum 2018-0 Yes Take by Metho di 1,000 mg 10-[address] powder in 00:00: Hospita packet 00 l NIFEdipine 2019-0 Yes 1{tbl} Take 1 Met hodi XL [address] (PROCARDIA 00:00: mouth. Hospi ta XL) 60 MG 00 l 24 hr tablet Immunizations Ordered Filled Immunization Date Status Comments Sour e Immunization Name Name Influenza High Dose 2021-02-02 Completed Unive rsity of 00:00:00 [facility] SARS-COV-2 COVID-19 2020-07-30 Completed Unive rsity of PFIZER VACCINE 00:00:00 [facility] SARS-COV-2 COVID-19 2020-07-11 Completed Unive rsity of PFIZER VACCINE 00:00:00 [facility] PPD (TB) 2018-03-20 Completed University of 00:00:00 [facility] Influenza Virus 2018-01-20 Completed Universit y of Vaccine - Whole 00:00:00 [facility] ica Branch Pneumococcal 2014-08-02 Completed University o f Polysaccharide, 00:00:00 [facility] PPSV23 (PNEUMOVAX) Branch Vital Signs Vital Name Observation Time Observation Value Comments Source WEIGHT 2021-07-03 13:00:00 60.4 kg WEIGHT 2021-07-02 04:21:00 62.37 kg WEIGHT 2021-06-25 00:00:00 64.5 kg WEIGHT 2021-06-23 22:30:00 62.4 kg WEIGHT 2021-06-23 04:00:00 61.7 kg WEIGHT 2021-06-22 14:30:00 63.3 kg WEIGHT 2021-06-22 05:00:00 65.3 kg WEIGHT 2021-06-20 05:00:00 57 kg WEIGHT 2021-06-17 11:15:00 58.3 kg WEIGHT 2021-06-17 08:15:00 60.3 kg WEIGHT 2021-06-10 17:40:00 60.7 kg WEIGHT 2021-06-10 13:38:00 64.7 kg WEIGHT 2021-06-08 18:45:00 64.7 kg HEIGHT 2021-06-08 04:44:00 160 cm WEIGHT 2021-06-08 04:44:00 67.677 kg WEIGHT 2021-07-03 13:00:00 60.4 kg WEIGHT 2021-07-02 04:21:00 62.37 kg WEIGHT 2021-06-25 00:00:00 64.5 kg WEIGHT 2021-06-23 22:30:00 62.4 kg WEIGHT 2021-06-23 04:00:00 61.7 kg WEIGHT 2021-06-22 14:30:00 63.3 kg WEIGHT 2021-06-22 05:00:00 65.3 kg WEIGHT 2021-06-20 05:00:00 57 kg WEIGHT 2021-06-17 11:15:00 58.3 kg WEIGHT 2021-06-17 08:15:00 60.3 kg WEIGHT 2021-06-10 17:40:00 60.7 kg WEIGHT 2021-06-10 13:38:00 64.7 kg WEIGHT 2021-06-08 18:45:00 64.7 kg HEIGHT 2021-06-08 04:44:00 160 cm WEIGHT 2021-06-08 04:44:00 67.677 kg Systolic blood 2021-05-23 01:40:00 126 mm[Hg] Univer sity of [facility] Diastolic blood 2021-05-23 01:40:00 46 mm[Hg] Unive rsity of [facility] Heart rate 2021-05-23 01:40:00 62 [facility] 2021-05-23 01:40:00 [facility].67 [facility] 2021-05-23 01:40:00 16 /[facility] Body weight 2021-05-23 01:40:00 [facility]3 [facility] BMI 2021-05-23 01:40:00 26.28 kg/m2 [facility] Oxygen saturation in 2021-05-22 17:16:00 93 /min [facility] Arterial blood by [facility] Pulse oximetry Branch Body height 2021-05-19 19:34:00 160 cm [facility] Sy[facility] 2021-07-04 08:10:00 149 mm[Hg] [facility] Diastolic blood 2021-07-04 08:10:00 65 mm[Hg] [facility] S t [facility] Heart rate 2021-07-04 08:10:00 71 /min [facility] Body temperature 2021-07-04 08:10:00 36.22 Priya [facility] Respiratory rate 2021-07-04 08:10:00 18 /min [facility] Oxygen saturation in 2021-07-04 08:10:00 93 /min [facility] - Arterial blood by Medical Ce nter Pulse oximetry Systolic blood 2021-07-03 14:23:00 123 mm[Hg] [facility] Diastolic blood 2021-07-03 14:23:00 60 mm[Hg] [facility] S t [facility] Heart rate 2021-07-03 14:23:00 70 /min [facility] Body temperature 2021-07-03 14:23:00 35.94 Priya [facility] Respiratory rate 2021-07-03 14:23:00 18 /min [facility] Oxygen saturation in 2021-07-03 14:23:00 97 /min [facility] - Arterial blood by Medical Ce nter Pulse oximetry Body weight 2021-07-03 13:00:00 60.4 kg [facility] BMI 2021-07-03 13:00:00 23.59 kg/m2 [facility] Systolic blood 2021-07-03 08:18:00 156 mm[Hg] [facility] Diastolic blood 2021-07-03 08:18:00 67 mm[Hg] [facility] t [facility] Heart rate 2021-07-03 08:18:00 68 /min [facility] Body temperature 2021-07-03 08:18:00 36.22 Priya [facility] Respiratory rate 2021-07-03 08:18:00 20 /min [facility] Oxygen saturation in 2021-07-03 08:18:00 94 /min [facility] Arterial blood by Medical Ce nter Pulse oximetry Heart rate 2021-07-02 10:00:00 72 /min [facility] Systolic blood 2021-07-02 08:00:00 171 mm[Hg] [facility] Diastolic blood 2021-07-02 08:00:00 78 mm[Hg] [facility] Body temperature 2021-07-02 08:00:00 36.56 Priya [facility] Respiratory rate 2021-07-02 08:00:00 20 /min [facility] Oxygen saturation in 2021-07-02 08:00:00 94 /min [facility] Arterial blood by Medical Ce nter Pulse oximetry Body weight 2021-07-02 04:21:00 62.37 kg [facility] BMI 2021-07-02 04:21:00 24.36 kg/m2 [facility] Systolic blood 2021-07-01 09:15:00 167 mm[Hg] [facility] Diastolic blood 2021-07-01 09:15:00 71 mm[Hg] [facility] Heart rate 2021-07-01 09:15:00 71 /min [facility] Respiratory rate 2021-07-01 09:15:00 14 /min [facility] Oxygen saturation in 2021-07-01 09:15:00 96 /min [facility] Arterial blood by Medical Ce nter Pulse oximetry Body temperature 2021-07-01 09:00:00 36.44 Priya [facility] Systolic blood 2021-06-29 14:24:00 169 mm[Hg] [facility] Diastolic blood 2021-06-29 14:24:00 71 mm[Hg] [facility] Heart rate 2021-06-29 14:24:00 70 /min [facility] Body temperature 2021-06-29 14:24:00 36.67 Priya [facility] Respiratory rate 2021-06-29 14:24:00 20 /min [facility] Oxygen saturation in 2021-06-29 14:24:00 98 /min [facility] Arterial blood by Medical Ce nter Pulse oximetry Systolic blood 2021-06-29 07:46:00 133 mm[Hg] [facility] Diastolic blood 2021-06-29 07:46:00 63 mm[Hg] [facility] S t [facility] Heart rate 2021-06-29 07:46:00 70 /min [facility] Body temperature 2021-06-29 07:46:00 36.44 Priya [facility] Respiratory rate 2021-06-29 07:46:00 20 /min [facility] Oxygen saturation in 2021-06-29 07:46:00 97 /min [facility] Arterial blood by Medical Ce nter Pulse oximetry Systolic blood 2021-06-26 10:15:00 169 mm[Hg] [facility] Diastolic blood 2021-06-26 10:15:00 66 mm[Hg] [facility] S t [facility] Heart rate 2021-06-26 10:15:00 71 /min [facility] Body temperature 2021-06-26 10:15:00 36.56 Priya [facility] Respiratory rate 2021-06-26 10:15:00 16 /min [facility] Oxygen saturation in 2021-06-26 10:15:00 99 /min [facility] Arterial blood by Medical Ce [facility]ter Pulse oximetry Systolic blood 2021-06-26 08:15:00 128 mm[Hg] [facility] Diastolic blood 2021-06-26 08:15:00 53 mm[Hg] [facility] S t [facility] Heart rate 2021-06-26 08:15:00 70 /min [facility] Body temperature 2021-06-26 08:15:00 36.5 Priya [facility] Respiratory rate 2021-06-26 08:15:00 9 /min [facility] Oxygen saturation in 2021-06-26 08:15:00 97 /min [facility] Arterial blood by Medical Ce [facility]ter Pulse oximetry Body weight 2021-06-25 00:00:00 64.5 kg [facility] BMI 2021-06-25 00:00:00 25.19 kg/m2 [facility] Body height 2021-06-13 11:09:00 160 cm [facility] Body height 2020-07-24 16:34:00 160 cm [facility] Body weight 2020-07-24 16:34:00 67 kg [facility] BMI 2020-07-24 16:34:00 26.17 kg/m2 [facility] Temperature Oral (F) 2019-02-19 22:00:00 98.3 F [facility] Heart Rate 2019-02-19 22:00:00 [facility] Respitory Rate 2019-02-19 22:00:00 [facility] [place] Systolic (mm Hg) 2019-02-19 22:00:00 [facility] [place] Diastolic (mm Hg) 2019-02-19 22:00:00 [facility] Height 2019-02-19 11:49:00 [facility] Weight 2019-02-19 11:49:00 [facility] Height 2019-01-26 05:47:00 [facility] Heart Rate 2019-01-26 05:47:00 [facility] Respitory Rate 2019-01-26 05:47:00 [facility] Systolic (mm Hg) 2019-01-26 05:47:00 Dickson [facility] Diastolic (mm Hg) 2019-01-26 05:47:00 [facility] Temperature Oral (F) 2019-01-26 05:19:00 101.3 F [facility] Weight 2019-01-26 01:51:00 [facility] Heart Rate 2018-10-11 20:05:00 [facility] Systolic (mm Hg) 2018-10-11 20:05:00 Dickson [facility] Diastolic (mm Hg) 2018-10-11 20:05:00 [facility] Temperature Oral (F) 2018-10-11 20:00:00 98.1 F [facility] Respitory Rate 2018-10-11 20:00:00 [facility] Height 2018-10-10 13:16:00 [facility] Weight 2018-10-10 13:16:00 [facility] Procedures Procedure Date / Time Performing Clinician Source Performed POCT-GLUCOSE METER 2021-07-04 08:33:00 Logan Russo [facility] CBC (HEMOGRAM ONLY) 2021-07-04 04:37:00 Martinez Ricardo [facility] BASIC METABOLIC PANEL (7) 2021-07-04 04:37:00 Dillon Ricardo [facility] MAGNESIUM 2021-07-04 04:37:00 Martinez Ricardo [facility] PHOSPHORUS 2021-07-04 04:37:[facility]ST 1 VIEW PORTABLE 2021-07-04 04:30:00 Martinez Ricardo [facility] - / BEDSIDE [facility] POCT-GLUCOSE METER 2021-07-03 21:18:00 Logan Russo [facility] POCT-GLUCOSE METER 2021-07-03 17:40:00 Logan Russo [facility] SARS-COV2/RT-PCR ([facility] & 2021-07-03 17:24:00 [facility] POCT-GLUCOSE METER 2021-07-03 16:06:00 Logan Russo [facility] REPORT OF PROCEDURE - 2021-07-03 15:34:23 Melva Loco [facility] - ENDOSCOPY [facility] COLONOSCOPY 2021-07-03 15:05:00 AmaratMelva croft [facility] COLONOSCOPY,POLYPECTOMY 2021-07-03 14:39:00 AmaratRowan croft [facility] COLONOSCOPY 2021-07-03 14:00:00 AmMelva smith [facility] POCT-GLUCOSE METER 2021-07-03 13:31:00 Logan Russo [facility] COLONOSCOPY 2021-07-03 13:00:00 Melva Loco [facility] HEMODIALYSIS INPATIENT 2021-07-03 10:32:50 Wilner Aponte [facility] POCT-GLUCOSE METER 2021-07-03 08:44:00 Logan Russo [facility] XR CHEST 1 VIEW PORTABLE 2021-07-03 05:24:[address] [facility] CBC (HEMOGRAM ONLY) 2021-07-03 03:08:00 Martinez Ricardo [facility] BASIC METABOLIC PANEL (7) 2021-07-03 03:08:00 Dillon Ricardo [facility] MAGNESIUM 2021-07-03 03:08:00 Martinez Ricardo [facility] PHOSPHORUS 2021-07-03 03:08:00 Davion [facility] POCT-GLUCOSE METER 2021-07-02 21:26:00 Logan Russo [facility] POCT-GLUCOSE METER 2021-07-02 17:49:00 RussoLogan del cid [facility] POCT-GLUCOSE METER 2021-07-02 12:48:00 RussoLogan del cid [facility] POCT-GLUCOSE METER 2021-07-02 08:33:00 Logan Russo [facility] XR CHEST 1 VIEW PORTABLE 2021-07-02 06:45:[address] [facility] CBC (HEMOGRAM ONLY) 2021-07-02 05:29:00 [facility] MET[facility]OLIC PANEL (7) 2021-07-02 05:29:00 Dillon Ricardo [facility] MAGNESIUM 2021-07-02 05:29:00 Martinez Ricardo [facility] PHOSPHORUS 2021-07-02 05:29:00 Davion [facility] POCT-GLUCOSE METER 2021-07-01 21:45:00 Russo, Logan R [facility] POCT-GLUCOSE METER 2021-07-01 17:44:00 Logan Russo [facility] POCT-GLUCOSE METER 2021-07-01 13:26:00 Logan Russo [facility] HEMODIALYSIS INPATIENT 2021-07-01 12:51:00 Wilner Aponte [facility] HEMODIALYSIS INPATIENT 2021-07-01 09:16:58 Wilner Aponte [facility] POCT-GLUCOSE METER 2021-07-01 08:31:00 RussoLogan del cid [facility] XR CHEST 1 VIEW PORTABLE 2021-07-01 05:38:[address] [facility] CBC (HEMOGRAM ONLY) 2021-07-01 05:15:00 Davion [facility] BASIC METABOLIC PANEL (7) 2021-07-01 05:15:00 Dillon Ricardo [facility] MAGNESIUM 2021-07-01 05:15:00 [facility] PHOSPHORUS 2021-07-01 05:15:00 [facility] POCT-GLUCOSE METER 2021-06-30 21:03:00 Logan Russo [facility] VENOGRAM 2021-06-30 18:06:00 Krzysztof Dodd [facility] POCT-GLUCOSE METER 2021-06-30 17:27:00 RussoLogan del cid [facility] XR ABDOMEN / KUB 1 VIEW 2021-06-30 17:21:00 Rowan Loco [facility] POCT-GLUCOSE METER 2021-06-30 12:24:00 RussoLogan [facility] POCT-GLUCOSE METER 2021-06-30 08:15:00 Logan Russo [facility] CBC (HEMOGRAM ONLY) 2021-06-30 04:40:00 Martinez Ricardo [facility] BASIC METABOLIC PANEL (7) 2021-06-30 04:40:00 Dillon Ricardo [facility] MAGNESIUM 2021-06-30 04:40:00 Martinez Ricardo [facility] PHOSPHORUS 2021-06-30 04:40:00 Martinez Ricardo [facility] XR CHEST 1 VIEW PORTABLE 2021-06-30 03:46:[address] [facility] PREPARE LEUKO-REDUCED RBC 2021-06-29 23:54:00 Dillon Ricardo [facility] POCT-GLUCOSE METER 2021-06-29 21:53:00 Logan Russo [facility] POCT-GLUCOSE METER 2021-06-29 17:44:00 RussoLogan [facility] POCT-GLUCOSE METER 2021-06-29 14:20:00 RussoLogan [facility] HEMODIALYSIS INPATIENT 2021-06-29 13:25:00 Bertrand Bueno [facility] POCT-GLUCOSE METER 2021-06-29 08:39:00 Logan Russo [facility] XR CHEST 1 VIEW PORTABLE 2021-06-29 05:20:[address] [facility] CBC (HEMOGRAM ONLY) 2021-06-29 04:49:00 Martinez Ricardo [facility] BASIC METABOLIC PANEL (7) 2021-06-29 04:49:00 Dillon Ricardo [facility] MAGNESIUM 2021-06-29 04:49:00 Martinez Ricardo [facility] PHOSPHORUS 2021-06-29 04:49:[address] [facility] POCT-GLUCOSE METER 2021-06-28 19:42:00 RussoLogan [facility] POCT-GLUCOSE METER 2021-06-28 17:22:00 Logan Russo [facility] CBC W/PLT COUNT & AUTO 2021-06-28 15:23:00 Niki [facility] CBC W/PLT COUNT & AUTO 2021-06-28 15:23:00 Nathalie Prince [facility] POCT-GLUCOSE METER 2021-06-28 12:31:00 Logan Russo [facility] TRANSFUSE LEUKO-REDUCED 2021-06-28 11:03:00 Martinez Ricardo [facility] - RED BLOOD CELLS [facility] PREPARE LEUKO-REDUCED RBC 2021-06-28 10:49:00 Dillon Ricardo [facility] POCT-GLUCOSE METER 2021-06-28 08:32:00 Logan Russo [facility] XR CHEST 1 VIEW PORTABLE 2021-06-28 04:23:00 Martinez Ricardo [facility] - / BEDSIDE [facility] CBC (HEMOGRAM ONLY) 2021-06-28 04:05:00 Martinez Ricardo [facility] BASIC METABOLIC PANEL (7) 2021-06-28 04:05:00 Dillon Ricardo [facility] MAGNESIUM 2021-06-28 04:05:00 Martinez Ricardo [facility] PHOSPHORUS 2021-06-28 04:05:00 Martinez Ricardo [facility] PREPARE LEUKO-REDUCED RBC 2021-06-27 23:54:00 Dillon Ricardo [facility] POCT-GLUCOSE METER 2021-06-27 21:27:00 Logan Russo [facility] POCT-GLUCOSE METER 2021-06-27 17:51:00 Logan Russo [facility] POCT-GLUCOSE METER 2021-06-27 15:02:00 Logan Russo [facility] POCT-GLUCOSE METER 2021-06-27 12:08:00 Russo, Logan Vaca [facility] POCT-GLUCOSE METER 2021-06-27 08:23:00 Russo, Logan Vaca [facility] SARS-COV2/RT-PCR ([facility] & 2021-06-27 04:13:00 Martinez Ricardo [facility] - REF LABS) [facility] CBC (HEMOGRAM ONLY) 2021-06-27 04:08:00 Martinez Ricardo [facility] BASIC METABOLIC PANEL (7) 2021-06-27 04:08:00 Dillon Ricardo [facility] MAGNESIUM 2021-06-27 04:08:00 Martinez Ricardo [facility] PHOSPHORUS 2021-06-27 04:08:00 Davion [facility] APTT 2021-06-27 04:08:00 Mary Abel [facility] PROTHROMBIN TIME/INR 2021-06-27 04:08:00 Abel Hernandez [facility] XR CHEST 1 VIEW PORTABLE 2021-06-27 03:58:00 Martinez Ricardo [facility] - / BEDSIDE [facility] POCT-GLUCOSE METER 2021-06-26 20:59:00 Russo, Logan Vaca [facility] HEMODIALYSIS INPATIENT 2021-06-26 19:13:00 Wilner Aponte [facility] POCT-GLUCOSE METER 2021-06-26 18:55:00 Russo, Logan Vaca [facility] HEMOGLOBIN AND HEMATOCRIT 2021-06-26 11:31:00 Dannielle Erwin [facility] POCT-GLUCOSE METER 2021-06-26 11:15:00 Russo, Logan Vaca [facility] POCT-GLUCOSE METER 2021-06-26 09:16:00 Russo, Logan Vaca [facility] LASER EXTRACTION,LEAD 2021-06-26 07:30:00 Krzysztof Dodd [facility] TRANSFUSE LEUKO-REDUCED 2021-06-26 06:15:[address] [facility] RED BLOOD CELLS [facility] PREPARE LEUKO-REDUCED RBC 2021-06-26 06:01:00 Dillon Ricardo [facility] CBC (HEMOGRAM ONLY) 2021-06-26 03:25:00 [facility]IC METABOLIC PANEL (7) 2021-06-26 03:25:00 Dillon Ricardo [facility] MAGNESIUM 2021-06-26 03:25:00 Martinez Ricardo [facility] PHOSPHORUS 2021-06-26 03:25:[address] [facility] 2021-06-26 03:25:00 Abel Hernandez [facility] PROTHROMBIN TIME/INR 2021-06-26 03:25:00 Abel Hernandez [facility] XR CHEST 1 VIEW PORTABLE 2021-06-26 01:25:00 Martinez Ricardo [facility] - / BEDSIDE [facility] POCT-GLUCOSE METER 2021-06-25 21:46:00 Logan Russo [facility] TYPE AND SCREEN, 2021-06-25 18:55:00 Krzysztof Dodd [facility] IR TUNNELED CATHETER 2021-06-25 17:45:[address] [facility] INSERTION [facility] POCT-GLUCOSE METER 2021-06-25 11:18:00 Logan Russo [facility] CBC (HEMOGRAM ONLY) 2021-06-25 02:56:00 Martinez Ricardo [facility] BASIC METABOLIC PANEL (7) 2021-06-25 02:56:00 Dillon Ricardo [facility] MAGNESIUM 2021-06-25 02:56:00 [facility] 2021-06-25 02:56:00 Martinez Ricardo [facility] APTT 2021-06-25 02:56:00 MaryAbel hernandez [facility] PROTHROMBIN TIME/INR 2021-06-25 02:56:00 MaryAbel hernandez [facility] XR CHEST 1 VIEW PORTABLE 2021-06-25 02:31:[address] [facility] / BEDSIDE [facility] POCT-GLUCOSE METER 2021-06-24 22:02:00 RussoLogan del cid [facility] XR ABDOMEN / KUB 1 VIEW 2021-06-24 18:29:00 Gurinder Nash [facility] POCT-GLUCOSE METER 2021-06-24 16:07:00 Logan Russo [facility] POCT-GLUCOSE METER 2021-06-24 12:26:00 Logan Russo [facility] HEMODIALYSIS INPATIENT 2021-06-24 11:25:03 Wilner Aponte [facility] POCT-GLUCOSE METER 2021-06-24 08:28:00 Logan Russo [facility] CBC (HEMOGRAM ONLY) 2021-06-24 03:01:00 Martinez Ricardo [facility] BASIC METABOLIC PANEL (7) 2021-06-24 03:01:00 Dillon Ricardo [facility] MAGNESIUM 2021-06-24 03:01:00 Martinez Ricardo [facility] PHOSPHORUS 2021-06-24 03:01:00 Martinez Ricardo [facility] APTT 2021-06-24 03:01:00 MaryAbel hernandez [facility] PROTHROMBIN TIME/INR 2021-06-24 03:01:00 Abel Hernandez [facility] XR CHEST 1 VIEW PORTABLE 2021-06-24 00:32:[address] [facility] / BEDSIDE [facility] POCT-GLUCOSE METER 2021-06-23 20:56:00 RussoLogan del cid [facility] POCT-GLUCOSE METER 2021-06-23 16:10:00 Logan Russo [facility] BASIC METABOLIC PANEL (7) 2021-06-23 12:59:00 Omaira Manzo [facility] POCT-GLUCOSE METER 2021-06-23 11:20:00 Logan Russo [facility] POCT-GLUCOSE METER 2021-06-23 07:29:00 Logan Russo [facility] BASIC METABOLIC PANEL (7) 2021-06-23 04:49:00 Omaira Manzo [facility] MAGNESIUM 2021-06-23 04:49:00 Davion [facility] PHOSPHORUS 2021-06-23 04:49:00 Davion [facility] CBC (HEMOGRAM ONLY) 2021-06-23 02:41:00 Davion [facility] APTT 2021-06-23 02:41:00 Abel Hernandez [facility] PROTHROMBIN TIME/INR 2021-06-23 02:41:00 MaryAbel hernandez [facility] XR CHEST 1 VIEW PORTABLE 2021-06-23 01:19:00 Martinez Ricardo [facility] - / BEDSIDE [facility] POCT-GLUCOSE METER 2021-06-22 22:11:00 RussoLogan del cid [facility] POCT-GLUCOSE METER 2021-06-22 18:02:00 Logan Russo [facility] 2D ECHO W/ DOPPLER 2021-06-22 15:55:38 Lupis Erwin CH, I [facility] (CW/PW/COLOR) [facility] BASIC METABOLIC PANEL (7) 2021-06-22 14:30:00 Omaira Manzo [facility] POCT-GLUCOSE METER 2021-06-22 12:25:00 Logan Russo [facility] HEMODIALYSIS INPATIENT 2021-06-22 11:44:15 Wilner Aponte [facility] OXYGEN SATURATION, 2021-06-22 10:35:00 Lupis Erwin CH, I [facility] BASIC METABOLIC PANEL (7) 2021-06-22 05:37:00 Omaira Manzo [facility] CBC (HEMOGRAM ONLY) 2021-06-22 01:34:00 Davion [facility] APTT 2021-06-22 01:34:00 Mary [facility] PROTHROMBIN TIME/INR 2021-06-22 01:34:00 Abel Hernandez [facility] BASIC METABOLIC PANEL (7) 2021-06-22 01:33:00 Omaira Manzo [facility] MAGNESIUM 2021-06-22 01:33:00 Davion [facility] PHOSPHORUS 2021-06-22 01:33:00 [facility] XR CHEST 1 VIEW PORTABLE 2021-06-22 01:05:00 Davion [facility] / BEDSIDE [facility] POCT-GLUCOSE METER 2021-06-21 21:09:00 Logan Russo [facility] POCT-GLUCOSE METER 2021-06-21 18:58:00 Logan Russo [facility] POCT-GLUCOSE METER 2021-06-21 13:30:00 Logan Russo [facility] BASIC METABOLIC PANEL (7) 2021-06-21 13:29:00 Omaira Manzo [facility] PREPARE LEUKO-REDUCED RBC 2021-06-21 03:28:00 Derick Carver [facility] BASIC METABOLIC PANEL (7) 2021-06-21 03:21:00 Omaira Manzo [facility] MAGNESIUM 2021-06-21 03:21:00 AhmaSamia garcia [facility] PHOSPHORUS 2021-06-21 03:21:00 Samia Tamayo [facility] CBC (HEMOGRAM ONLY) 2021-06-21 03:21:00 Martinez Ricardo [facility] APTT 2021-06-21 03:21:00 Abel Hernandez [facility] PROTHROMBIN TIME/INR 2021-06-21 03:21:00 Abel Hernandez [facility] XR CHEST 1 VIEW PORTABLE 2021-06-21 01:34:00 Davion [facility] - / BEDSIDE [facility] PREPARE LEUKO-REDUCED RBC 2021-06-20 23:54:00 Art Jiménez [facility] BASIC METABOLIC PANEL (7) 2021-06-20 17:40:00 Omaira Manzo [facility] POCT-GLUCOSE METER 2021-06-20 13:33:00 RussoLogan [facility] POCT-GLUCOSE METER 2021-06-20 06:06:00 RussoLogan [facility] SARS-COV2/RT-PCR ([facility] & 2021-06-20 01:20:00 [facility] BLOOD GAS, ARTERIAL 2021-06-20 01:20:00 Abel Hernandez [facility] BASIC METABOLIC PANEL (7) 2021-06-20 01:19:00 Samia Tamayo CH I [facility] MAGNESIUM 2021-06-20 01:19:00 AhmaSamia garcia [facility] PHOSPHORUS 2021-06-20 01:19:00 AhSamia smith [facility] CBC (HEMOGRAM ONLY) 2021-06-20 01:19:00 [facility] 2021-06-20 01:19:00 MaryAbel hernandez [facility] PROTHROMBIN TIME/INR 2021-06-20 01:19:00 MaryAbel hernandez [facility] CALCIUM, IONIZED 2021-06-20 01:19:00 Jersey Costello [facility] XR CHEST 1 VIEW PORTABLE 2021-06-20 01:05:00 Martinez Ricardo [facility] - / BEDSIDE [facility] PREPARE PLATELETS 2021-06-19 23:55:00 Janelle Kuo [facility] PREPARE RBC 2021-06-19 23:54:00 RussoLogan [facility] MAGNESIUM 2021-06-19 21:32:00 Jersey Costello [facility] PH, ARTERIAL 2021-06-19 21:32:00 Jersey Costello [facility] PHOSPHORUS 2021-06-19 21:32:00 Jersey Costello [facility] BASIC METABOLIC PANEL (7) 2021-06-19 21:32:00 Omaira Manzo [facility] POCT-GLUCOSE METER 2021-06-19 17:55:00 RussoLogan [facility] BLOOD GAS, ARTERIAL 2021-06-19 12:39:00 MaryAbel [facility] BLOOD GAS, ARTERIAL 2021-06-19 11:13:00 MaryAbel hernandez [facility] POCT-GLUCOSE METER 2021-06-19 08:41:00 Logan Russo [facility] TRANSFUSE LEUKO-REDUCED 2021-06-19 07:45:[address] [facility] RED BLOOD CELLS [facility] BASIC METABOLIC PANEL (7) 2021-06-19 02:14:00 Samia Tamayo CH I [facility] MAGNESIUM 2021-06-19 02:14:00 Samia Tamayo [facility] PHOSPHORUS 2021-06-19 02:14:00 Samia Tamayo [facility] CBC (HEMOGRAM ONLY) 2021-06-19 02:14:00 Martinez Ricardo [facility] APTT 2021-06-19 02:14:00 MaryAbel hernandez [facility] PROTHROMBIN TIME/INR 2021-06-19 02:14:00 MaryAbel hernandez [facility] BLOOD GAS, ARTERIAL 2021-06-19 02:14:00 MaryAbel hernandez [facility] OXYGEN SATURATION, 2021-06-19 02:14:00 AnpaulasuArt [facility] XR CHEST 1 VIEW PORTABLE 2021-06-19 01:52:00 Martinez Ricardo [facility] - / BEDSIDE [facility] POCT-GLUCOSE METER 2021-06-18 23:55:00 RussoLogan [facility] PREPARE LEUKO-REDUCED RBC 2021-06-18 23:55:00 Shiva Jeter [facility] POCT-GLUCOSE METER 2021-06-18 23:03:00 RussoLogan [facility] POCT-GLUCOSE METER 2021-06-18 21:14:00 RussoLogan [facility] POCT-GLUCOSE METER 2021-06-18 18:54:00 RussoLogan [facility] CBC (HEMOGRAM ONLY) 2021-06-18 18:15:00 MaryAbel hernandez [facility] BASIC METABOLIC PANEL (7) 2021-06-18 18:15:00 MaryAbel hernandez [facility] APTT 2021-06-18 18:15:00 MaryAbel hernandez [facility] PROTHROMBIN TIME/INR 2021-06-18 18:15:00 MaryAbel hernandez [facility] LACTIC ACID, ARTERIAL 2021-06-18 18:15:00 MaryAbel hernandez CH I [facility] PHOSPHORUS 2021-06-18 18:15:00 MaryAbel [facility] MAGNESIUM 2021-06-18 18:15:00 Mary [facility] BLOOD GAS, ARTERIAL 2021-06-18 18:15:00 Mary [facility] OXYGEN SATURATION, 2021-06-18 18:15:00 Mary [facility] RRL CRITICAL LABS 2021-06-18 16:04:00 Mary, [facility] (ABG,NA,K,H&H,GLUCOSE) [facility] C enter CALCIUM, IONIZED 2021-06-18 16:04:00 Mary, [facility] BLOOD GAS, ARTERIAL 2021-06-18 16:04:00 Mary [facility] SODIUM NA-STAT LAB 2021-06-18 16:04:00 Mary [facility] POTASSIUM-STAT LAB 2021-06-18 16:04:00 Mary [facility] GLUCOSE-STAT LAB 2021-06-18 16:04:00 Mary, [facility] HGB/HCT (H&H) - STAT LAB 2021-06-18 16:04:00 [facility] PREPARE PLASMA 2021-06-18 15:44:00 Beth, [facility] XR CHEST 1 VIEW PORTABLE 2021-06-18 15:33:00 Mary [facility] - / BEDSIDE Medical Center OXYGEN SATURATION, 2021-06-18 15:03:00 Mary, [facility] SURGICALLY OBTAINED 2021-06-18 15:01:35 Russo, Logan [facility] - CULTURE + GRAM STAIN Medical [place]esi ter FUNGUS CULTURE + SMEAR 2021-06-18 15:01:35 Russo, Logan Vaca [facility] AFB CULTURE + SMEAR 2021-06-18 15:01:35 Russo, Logan Vaca [facility] - (NON-SPUTUM) [facility] HEMOGLOBIN AND HEMATOCRIT 2021-06-18 14:58:00 Luh Cosby CH I [facility] CBC W/PLT COUNT & AUTO 2021-06-18 14:58:00 MaryAbel hernandez [facility] CBC W/PLT COUNT & AUTO 2021-06-18 14:58:00 Abel Hernandez [facility] [facility] (CELLAVISION MANUAL DIFF) 2021-06-18 14:58:00 Abel Hernandez [facility] BASIC METABOLIC PANEL (7) 2021-06-18 14:57:00 MaryAbel hernandez [facility] MAGNESIUM 2021-06-18 14:57:00 Abel Hernandez [facility] CALCIUM, IONIZED 2021-06-18 14:57:00 Abel Hernandez [facility] PROTHROMBIN TIME/INR 2021-06-18 14:57:00 Abel Hernandez [facility] APTT 2021-06-18 14:57:00 Abel Hernandez [facility] PHOSPHORUS 2021-06-18 14:57:00 Abel Hernandez [facility] POTASSIUM 2021-06-18 14:57:00 Abel Hernandez [facility] PREPARE PLATELETS 2021-06-18 14:20:00 Janelle Kuo [facility] PLATELET COUNT 2021-06-18 13:12:54 Asad Santana [facility] POCT-ACT 2021-06-18 13:08:00 Logan Russo [facility] RRL CRITICAL LABS 2021-06-18 13:05:56 [facility] (ABG,NA,K,H&H,GLUCOSE) [facility] enter CALCIUM, IONIZED 2021-06-18 13:05:[address] [facility] FIBRINOGEN 2021-06-18 13:05:56 Asad Santana [facility] APTT 2021-06-18 13:05:[address] [facility] PROTHROMBIN TIME/INR 2021-06-18 13:05:56 [facility] S [facility] BLOOD GAS, ARTERIAL 2021-06-18 13:05:[address] [facility] SODIUM NA-STAT LAB 2021-06-18 13:05:56 Max, [facility] POTASSIUM-STAT LAB 2021-06-18 13:05:56 Max, [facility] GLUCOSE-STAT LAB 2021-06-18 13:05:56 Max, [facility] HGB/HCT (H&H) - STAT LAB 2021-06-18 13:05:56 Asad Santana [facility] TRANSFUSE LEUKO-REDUCED 2021-06-18 12:46:00 Asad Santana [facility] TRANSFUSE LEUKO-REDUCED 2021-06-18 12:45:00 Asad Santana [facility] RRL CRITICAL LABS 2021-06-18 12:22:[address] [facility] (ABG,NA,K,H&H,GLUCOSE) [facility] enter BLOOD GAS, ARTERIAL 2021-06-18 12:22:57 Logan Russo [facility] SODIUM NA-STAT LAB 2021-06-18 12:22:57 Logan Russo [facility] POTASSIUM-STAT LAB 2021-06-18 12:22:57 Logan Russo [facility] GLUCOSE-STAT LAB 2021-06-18 12:22:57 Logan Russo [facility] HGB/HCT (H&H) - STAT LAB 2021-06-18 12:22:57 Logan Russo [facility] POCT-ACT 2021-06-18 12:20:00 Logan Russo [facility] RRL CRITICAL LABS 2021-06-18 12:17:57 Beth Logan Vaca [facility] - (ABG,NA,K,H&H,GLUCOSE) Medical C enter BLOOD GAS, ARTERIAL 2021-06-18 12:17:57 Logan Russo [facility] SODIUM NA-STAT LAB 2021-06-18 12:17:57 Beth Logan Vaca [facility] POTASSIUM-STAT LAB 2021-06-18 12:17:57 Logan Russo [facility] GLUCOSE-STAT LAB 2021-06-18 12:17:57 Beth Logan Vaca [facility] HGB/HCT (H&H) - STAT LAB 2021-06-18 12:17:57 Logan Russo [facility] MISCELLANEOUS LAB ORDER 2021-06-18 11:59:38 [facility] 2021-06-18 11:59:[address] [facility] FIBRINOGEN 2021-06-18 11:59:[facility]/INR 2021-06-18 11:59:[address] [facility] APTT 2021-06-18 11:59:38 [facility] POCT-ACT 2021-06-18 11:43:00 Logan Russo [facility] TISSUE EXAM 2021-06-18 11:41:00 Logan Russo [facility] RRL CRITICAL LABS 2021-06-18 11:40:[address] [facility] (ABG,NA,K,H&H,GLUCOSE) Medical C enter BLOOD GAS, ARTERIAL 2021-06-18 11:40:27 Logan Russo [facility] SODIUM NA-STAT LAB 2021-06-18 11:40:27 Logan Russo [facility] POTASSIUM-STAT LAB 2021-06-18 11:40:27 Logan Russo [facility] GLUCOSE-STAT LAB 2021-06-18 11:40:27 Russo, Logan Vaca [facility] HGB/HCT (H&H) - STAT LAB 2021-06-18 11:40:27 Russo, Logan Vaca [facility] POCT-ACT 2021-06-18 11:15:00 Russo, Logan Vaca [facility] RRL CRITICAL LABS 2021-06-18 11:13:46 Russo, Logan Vaca [facility] es - (ABG,NA,K,H&H,GLUCOSE) Medical C enter BLOOD GAS, ARTERIAL 2021-06-18 11:13:46 Russo, Logan Vaca [facility] SODIUM NA-STAT LAB 2021-06-18 11:13:46 Russo, [facility] POTASSIUM-STAT LAB 2021-06-18 11:13:46 Russo, [facility] GLUCOSE-STAT LAB 2021-06-18 11:13:46 Russo, [facility] HGB/HCT (H&H) - STAT LAB 2021-06-18 11:13:46 Beth Logan Vaca [facility] POCT-ACT 2021-06-18 10:47:00 Russo, Logan Vaca [facility] RRL CRITICAL LABS 2021-06-18 10:45:20 Beth, Logan Vaca [facility] es - (ABG,NA,K,H&H,GLUCOSE) Medical C enter BLOOD GAS, ARTERIAL 2021-06-18 10:45:20 Russo, Logan Nola [facility] SODIUM NA-STAT LAB 2021-06-18 10:45:20 Russo, Logan Vaca [facility] POTASSIUM-STAT LAB 2021-06-18 10:45:20 Russo, Logan Vaca [facility] GLUCOSE-STAT LAB 2021-06-18 10:45:20 Russo, [facility] HGB/HCT (H&H) - STAT LAB 2021-06-18 10:45:20 Logan Russo [facility] POCT-ACT 2021-06-18 10:14:00 Logan Russo [facility] ANESTHESIA NIMCO 2021-06-18 10:03:35 Lydia Marmolejo [facility] TRANSFUSE LEUKO-REDUCED 2021-06-18 09:26:00 [facility] CELL[facility] RRL CRITICAL LABS 2021-06-18 08:54:[address] [facility] - (ABG,NA,K,H&H,GLUCOSE) [facility] enter CALCIUM, IONIZED 2021-06-18 08:54:20 Max [facility] BLOOD GAS, ARTERIAL 2021-06-18 08:54:[address] [facility] SODIUM NA-STAT LAB 2021-06-18 08:54:[address] [facility] POTASSIUM-STAT LAB 2021-06-18 08:54:[address] [facility] GLUCOSE-STAT LAB 2021-06-18 08:54:20 Max [facility] HGB/HCT (H&H) - STAT LAB 2021-06-18 08:54:20 Asad Santana [facility] REPAIR,MITRAL VALVE 2021-06-18 07:38:00 Logan Russo [facility] VALVULOPLASTY,TRICUSPID 2021-06-18 07:38:00 Logan Russo [facility] STERNOTOMY 2021-06-18 07:38:00 Logan Russo [facility] NIMCO 2021-06-18 07:38:00 Logan Russo [facility] CBC W/PLT COUNT & AUTO 2021-06-18 05:37:00 Samia Tamayo [facility] BASIC METABOLIC PANEL (7) 2021-06-18 05:37:00 Ahmad, [facility] MAGNESIUM 2021-06-18 05:37:00 Ahmapamela [facility] PHOSPHORUS 2021-06-18 05:37:00 Roni [facility] CBC W/PLT COUNT & AUTO 2021-06-18 05:37:00 Roni [facility] S [facility] DIFFERENTIAL [facility] TRANSFUSE LEUKO-REDUCED 2021-06-17 23:31:[address] [facility] RED BLOOD CELLS [facility] POCT-GLUCOSE METER 2021-06-17 21:28:00 [facility] HEMOGLOBIN AND HEMATOCRIT 2021-06-17 21:16:00 Harjeet, [facility] CT ABDOMEN/PELVIS WITHOUT 2021-06-17 17:07:00 Harjeet [facility] IV CONTRAST [facility] XR ABDOMEN / KUB 1 VIEW 2021-06-17 16:15:00 Harjeet [facility] MAGNESIUM 2021-06-17 15:48:00 [facility] COMPREHENSIVE METABOLIC 2021-06-17 15:48:00 [facility] PANEL [facility] HEMOGLOBIN A1C 2021-06-17 15:48:00 [facility] CBC W/PLT COUNT & AUTO 2021-06-17 15:48:00 [facility] DIFFERENTIAL [facility] PROTHROMBIN TIME/INR 2021-06-17 15:48:00 [facility] APTT 2021-06-17 15:48:00 [facility] TYPE AND SCREEN, 2021-06-17 15:48:00 [facility] - AUTOMATED [facility] CBC W/PLT COUNT & AUTO 2021-06-17 15:48:00 [facility] DIFFERENTIAL [facility] ECG 12-LEAD 2021-06-17 15:31:19 Art Jiménez [facility] HEMODIALYSIS INPATIENT 2021-06-17 08:22:41 Wilner Aponte [facility] CBC W/PLT COUNT & AUTO 2021-06-17 04:15:00 Ahmad [facility] BASIC METABOLIC PANEL (7) 2021-06-17 04:15:00 AhmadSamia [facility] MAGNESIUM 2021-06-17 04:15:00 Ahmad [facility] PHOSPHORUS 2021-06-17 04:15:00 Ahmad [facility] CBC W/PLT COUNT & AUTO 2021-06-17 04:15:00 Ahmapamela [facility] POCT-GLUCOSE METER 2021-06-16 23:59:[facility]SE [facility]ER 2021-06-16 18:00:00 Harjeet [facility] [place] CEREBRAL 4 VESSEL 2021-06-16 12:55:[address] [facility] ANGIOGRAM [facility] PACEMAKER CHECK WITH 2021-06-16 10:00:06 Rosa Maria [facility] MR BRAIN WITHOUT IV 2021-06-16 09:57:00 Ladarius Jc [facility] Medical Ce nter PACEMAKER CHECK WITH 2021-06-16 09:31:48 Rosa Maria [facility] POCT-GLUCOSE METER 2021-06-16 07:18:00 Harjeet [facility] CBC W/PLT COUNT & AUTO 2021-06-16 04:21:00 Ahsarah [facility] BASIC METABOLIC PANEL (7) 2021-06-16 04:21:00 AhmaSamia garcia [facility] MAGNESIUM 2021-06-16 04:21:00 Ahmad [facility] PHOSPHORUS 2021-06-16 04:21:00 Ahmad, [facility] CBC W/PLT COUNT & AUTO 2021-06-16 04:21:00 Ahmad, [facility] POCT-GLUCOSE METER 2021-06-15 21:28:00 Harjeet [facility] CTA HEART CORONARY WITH 2021-06-15 18:20:00 Ahsarah, [facility] CALCIUM EVALUATION Medical Cente r WITHOUT FFR HEPATIC FUNCTION PANEL 2021-06-15 15:18:00 Harjeet [facility] ABORH, MANUAL 2021-06-15 05:54:00 Kelli Merrill [facility] PT/APTT 2021-06-15 04:16:00 Ahsarah [facility] CBC W/PLT COUNT & AUTO 2021-06-15 04:16:00 Ahsarah [facility] BASIC METABOLIC PANEL (7) 2021-06-15 04:16:00 AhSamia smith I [facility] MAGNESIUM 2021-06-15 04:16:00 Ahmapamela, [facility] PHOSPHORUS 2021-06-15 04:16:00 Ahsarah, [facility] TYPE AND SCREEN, 2021-06-15 04:16:00 Ahmapamela, [facility] AUTOMATED [facility] CBC W/PLT COUNT & AUTO 2021-06-15 04:16:00 Ahmad, [facility] POCT-GLUCOSE METER 2021-06-14 11:09:00 Ladarius Jc [facility] POCT-GLUCOSE METER 2021-06-14 07:31:00 Ladarius Jc [facility] EEG 12-26 HR CONTINUOUS 2021-06-14 06:25:[address] [facility] - MONITORING WITH VIDEO [facility] CBC W/PLT COUNT & AUTO 2021-06-14 04:05:00 AhSamia smith [facility] BASIC METABOLIC PANEL (7) 2021-06-14 04:05:00 Samia Tamayo [facility] MAGNESIUM 2021-06-14 04:05:00 AhSamia smith [facility] PHOSPHORUS 2021-06-14 04:05:00 AhmaSamia garcia [facility] CBC W/PLT COUNT & AUTO 2021-06-14 04:05:[address] [facility] POCT-GLUCOSE METER 2021-06-13 17:10:00 Ladarius Jc [facility]ter POCT-GLUCOSE METER 2021-06-13 12:44:00 Ladarius Jc [facility] Ce [facility]ter HEPARIN ANTIBODY 2021-06-13 11:25:[address] [facility] EEG 12-26 HR CONTINUOUS 2021-06-13 11:06:00 Pamela Orta [facility] - MONITORING WITH VIDEO Medical Ce nter IRON, TIBC, % SAT. 2021-06-13 08:28:00 Claudette Salmeron [facility] (WITHOUT FERRITIN) [facility] 2021-06-13 08:28:00 Claudette Salmeron [facility] POCT-GLUCOSE METER 2021-06-13 08:27:00 Mary Kate Gracia [facility] CBC W/PLT COUNT & AUTO 2021-06-13 03:36:00 Samia Tamayo [facility] BASIC METABOLIC PANEL (7) 2021-06-13 03:36:00 Samia Tamayo [facility] MAGNESIUM 2021-06-13 03:36:00 AhSamia smith [facility] PHOSPHORUS 2021-06-13 03:36:00 AhmaSamia garcia [facility] CBC W/PLT COUNT & AUTO 2021-06-13 03:36:00 [facility] POCT-GLUCOSE METER 2021-06-13 01:48:00 Mary Kate Gracia [facility] HEMODIALYSIS INPATIENT 2021-06-12 23:02:53 Fabienne Harshil [facility] POCT-GLUCOSE METER 2021-06-12 18:54:00 Mary Kate Gracia [facility] SARS-COV2/RT-PCR ([facility] & 2021-06-12 17:07:00 Martinez Ricardo [facility] - REF LABS) [facility] EEG AWAKE AND DROWSY 2021-06-12 12:20:00 Thom Almodovar [facility] CT BRAIN WITHOUT IV 2021-06-12 08:15:00 Angel Saenz [facility] POCT-GLUCOSE METER 2021-06-12 07:20:00 Mary Kate Gracia [facility] CTA BRAIN 2021-06-12 01:53:00 [facility] 2021-06-12 01:53:[address] [facility] [address] BRAIN WITHOUT IV 2021-06-12 01:31:00 Janina [facility] CBC W/PLT COUNT & AUTO 2021-06-12 01:07:00 Samia Tamayo [facility] S [facility] HIGH SENSITIVITY TROPONIN 2021-06-12 01:07:00 Mary Kate Gracia I [facility] LACTIC ACID, VENOUS 2021-06-12 01:07:00 Mary Kate Gracia [facility] PROTHROMBIN TIME/INR 2021-06-12 01:07:00 Mary Kate Gracia [facility] CBC W/PLT COUNT & AUTO 2021-06-12 01:07:00 Anshul Acharya [facility] S t [facility] BASIC METABOLIC PANEL (7) 2021-06-12 00:49:00 Samia Tamayo I [facility] MAGNESIUM 2021-06-12 00:49:00 Samia Tamayo [facility] PHOSPHORUS 2021-06-12 00:49:00 Samia Tamayo [facility] ECG 12-LEAD 2021-06-12 00:43:57 Unknown, Hl7 [facility] ECG 12-LEAD 2021-06-12 00:43:57 Unknown, 7 [facility] ECG 12-LEAD 2021-06-12 00:40:07 Unknown, 7 [facility] ECG 12-LEAD 2021-06-12 00:39:50 Unknown, 7 [facility] ECG 12-LEAD 2021-06-12 00:39:50 Unknown, [address] POCT-GLUCOSE METER 2021-06-12 00:35:00 Mary Kate Gracia [facility] POCT-GLUCOSE METER 2021-06-11 20:12:00 [facility] POCT-GLUCOSE METER 2021-06-11 16:12:00 [facility] Christine [facility] BLOOD CULTURE 2021-06-11 11:47:00 Jocelyne Alejandre [facility] POCT-GLUCOSE METER 2021-06-11 11:17:00 Mary Kate Gracia [facility] PACEMAKER CHECK 2021-06-11 10:59:25 Hernandez James [facility] POCT-GLUCOSE METER 2021-06-11 06:33:00 Mary Kate Gracia [facility] BLOOD CULTURE 2021-06-11 04:03:00 Jessica John [facility] CBC W/PLT COUNT & AUTO 2021-06-11 04:03:00 Samia Tamayo [facility] BASIC METABOLIC PANEL (7) 2021-06-11 04:03:00 AhakilpamelaSamia CH I [facility] MAGNESIUM 2021-06-11 04:03:00 Ahmad Samia [facility] PHOSPHORUS 2021-06-11 04:03:00 AhmadSamia [facility] CBC W/PLT COUNT & AUTO 2021-06-11 04:03:00 Anshul Acharya [facility] S [facility] POCT-BLOOD GASES, VENOUS 2021-06-10 22:25:00 Samia [facility] POCT-SODIUM 2021-06-10 22:25:00 [facility] POCT-POTASSIUM 2021-06-10 22:25:00 Samia [facility] POCT-HEMOGLOBIN 2021-06-10 22:25:00 [facility] POCT-HEMATOCRIT 2021-06-10 22:25:00 [facility] POCT-GLUCOSE 2021-06-10 22:25:00 Samia [facility] CBC W/PLT COUNT & AUTO 2021-06-10 22:23:00 Jessica [facility] CBC W/PLT COUNT & AUTO 2021-06-10 22:23:00 Jessica John [facility] XR CHEST 1 VIEW PORTABLE 2021-06-10 22:14:00 Jessica John [facility] - / BEDSIDE [facility] BLOOD CULTURE 2021-06-10 22:08:00 Jessica John [facility] LACTIC ACID, VENOUS 2021-06-10 22:07:00 Jessica John [facility] POCT-GLUCOSE METER 2021-06-10 21:20:00 [facility] Emmett [facility] HEMODIALYSIS INPATIENT 2021-06-10 17:49:00 Wilner Aponte [facility] POCT-GLUCOSE METER 2021-06-10 16:22:00 Mary Kate Gracia [facility] POCT-GLUCOSE METER 2021-06-10 11:29:00 Mary Kate Gracia Emmett [facility] POCT-GLUCOSE METER 2021-06-10 07:27:00 Mary Kate Gracia Emmett [facility] CBC W/PLT COUNT & AUTO 2021-06-10 04:36:00 Ahmapamela [facility] BASIC METABOLIC PANEL (7) 2021-06-10 04:36:00 AhmaSamia garcia [facility] MAGNESIUM 2021-06-10 04:36:00 Ahmapamela [facility] PHOSPHORUS 2021-06-10 04:36:00 Ahmapamela [facility] CBC W/PLT COUNT & AUTO 2021-06-10 04:36:00 Anshul Acharya [facility] POCT-GLUCOSE METER 2021-06-09 21:22:00 Haj-Ismail [facility] POCT-GLUCOSE METER 2021-06-09 16:16:00 Haj-Ismail, [facility] 2D ECHO W/ DOPPLER 2021-06-09 12:21:49 Rony Shin [facility] (CW/PW/COLOR) [facility] TRANSESOPHAGEAL ECHO 2021-06-09 09:04:02 Jocelyne Alejandre [facility] POCT-GLUCOSE METER 2021-06-09 06:11:00 Haj-Ismail, [facility] CBC W/PLT COUNT & AUTO 2021-06-09 03:34:00 Ahsarah [facility] BASIC METABOLIC PANEL (7) 2021-06-09 03:34:00 Samia Tamayo [facility] MAGNESIUM 2021-06-09 03:34:00 Ahmad [facility] PHOSPHORUS 2021-06-09 03:34:00 Ahmad [facility] CBC W/PLT COUNT & AUTO 2021-06-09 03:34:00 Anshul Acharya [facility] POCT-GLUCOSE METER 2021-06-08 21:03:00 Nathen-Santosh [facility] HEMODIALYSIS INPATIENT 2021-06-08 15:21:58 Jersey Costello [facility] COLOR-FLOW MAPPING 2021-06-08 13:42:[address] [facility] CONT WAVE PULSED DOPPLER 2021-06-08 13:42:25 Hill [facility] PTH, INTACT 2021-06-08 10:29:00 Jersey Costello [facility] HEPATITIS B SURFACE 2021-06-08 10:29:[address] [facility] [place] HEPATITIS PANEL, ACUTE 2021-06-08 10:29:00 Haj-Isherbert [facility] POCT-GLUCOSE METER 2021-06-08 06:59:00 Janelle Kuo [facility] CBC W/PLT COUNT & AUTO 2021-06-08 05:00:00 Samia Tamayo [facility] BASIC METABOLIC PANEL (7) 2021-06-08 05:00:00 Samia Tamayo CH, I [facility] MAGNESIUM 2021-06-08 05:00:00 Samia Tamayo [facility] PHOSPHORUS 2021-06-08 05:00:00 Samia Tamayo [facility] PROTHROMBIN TIME/INR 2021-06-08 05:00:00 Anshul Acharya [facility] VITAMIN B12 2021-06-08 05:00:00 Anshul Acharya [facility] FERRITIN 2021-06-08 05:00:00 Jersey Costello [facility] IRON, TIBC, % SAT. 2021-06-08 05:00:00 Jersey [facility] VITAMIN D, 25-HYDROXY 2021-06-08 05:00:00 Wilner Aponte [facility] CBC W/PLT COUNT & AUTO 2021-06-08 05:00:00 Anshul Acharya [facility] Katelyn [facility] US ABDOMEN LIMITED 2021-06-08 04:51:00 Anshul Acharya [facility] SARS-COV2/RT-PCR ([facility] & 2021-06-07 23:43:00 Angel Saenz [facility] - REF LABS) [facility] POCT-GLUCOSE METER 2021-06-07 23:11:00 Janelle Kuo [facility] ECG 12-LEAD 2021-06-07 23:06:38 Unknown, Hl7 [facility] ECG 12-LEAD 2021-06-07 23:06:38 Unknown, Hl7 [facility] BLOOD CULTURE 2021-06-07 21:48:00 Anshul Acharya [facility] BLOOD CULTURE 2021-06-07 21:41:00 Anshul Acharya [facility] CBC W/PLT COUNT & AUTO 2021-06-07 21:41:00 Anshul Acharya [facility] COMPREHENSIVE METABOLIC 2021-06-07 21:41:00 Anshul Acharya [facility] VANCOMYCIN LEVEL, RANDOM 2021-06-07 21:41:00 Anshul Acharya [facility] CBC W/PLT COUNT & AUTO 2021-06-07 21:41:00 Anshul Acharya [facility] XR CHEST 1 VIEW PORTABLE 2021-06-07 19:59:00 Anshul Acharya [facility] - / BEDSIDE [facility] ARRYTHMIA IMPLANT REPORT 2021-06-07 00:00:00 Provider, Judah ALEGRIA [facility] - - SCAN Scanning [facility] POCT GLUCOSE (AUTOMATED) 2021-05-22 23:19:00 Neil Thomas [facility] POCT GLUCOSE (AUTOMATED) 2021-05-22 17:36:00 Neil Thomas [facility] POCT GLUCOSE (AUTOMATED) 2021-05-22 13:43:00 Neil Thomas [facility] BASIC METABOLIC PANEL 2021-05-22 09:37:00 José Miguel Horn [facility] (NA, K, CL, CO2, GLUCOSE, Medica l Branch BUN, CREATININE, [place]) CBC WITH DIFF 2021-05-22 09:37:00 José Miguel Horn [facility] GLUCOSE 2021-05-21 23:41:00 [facility] PROTEIN TOTAL 2021-05-21 23:41:00 [facility] LACTATE DEHYDROGENASE 2021-05-21 23:41:00 Candido Robison [facility] TROPONIN I 2021-05-21 23:41:00 Tameka [facility] N-TERMINAL PRO-BNP 2021-05-21 23:41:00 José Miguel Horn [facility] POCT GLUCOSE (AUTOMATED) 2021-05-21 23:14:00 Neil Thomas [facility] POCT GLUCOSE (AUTOMATED) 2021-05-21 16:58:00 Neil Thomas [facility] POCT GLUCOSE (AUTOMATED) 2021-05-21 13:47:00 Neil Thomas [facility] XR CHEST 1 VW 2021-05-21 13:06:23 Gt [facility] VITAMIN B12, LEVEL 2021-05-21 12:51:00 Taina Del Real [facility] FOLATE 2021-05-21 12:51:00 Gt [facility] TROPONIN I 2021-05-21 12:51:00 Gt [facility] IRON PANEL 2021-05-21 12:51:00 Gt [facility] VITAMIN D, 25-OH 2021-05-21 12:51:00 Gt [facility] FERRITIN SERUM 2021-05-21 09:32:00 Gt [facility] TROPONIN I 2021-05-21 09:32:00 Gt [facility] HEPATIC FUNCTION PANEL 2021-05-21 09:32:00 Taina Del Real [facility] ([id number]) (ALB,T.PRO,BILI Medical Branch T,BU/BC,ALT,AST,ALK PHOS) BASIC METABOLIC PANEL 2021-05-21 09:32:00 José Miguel Horn [facility] (NA, K, CL, CO2, GLUCOSE, Medica l Branch BUN, CREATININE, CA) DIFF CONSULT 2021-05-21 09:32:00 Gt [facility] CBC WITH DIFF 2021-05-21 09:32:00 Kory [facility] N-TERMINAL PRO-BNP 2021-05-21 09:32:00 [facility] POCT GLUCOSE (AUTOMATED) 2021-05-21 02:22:00 Neil Thomas [facility] XR CHEST 1 VW 2021-05-20 22:21:01 [facility] POCT GLUCOSE (AUTOMATED) 2021-05-20 22:14:00 [facility] PH, BODY FLUID 2021-05-20 22:04:00 [facility] T.PROTEIN BODY FLUID 2021-05-20 22:04:00 Candido Robison [facility] BODY FLUID DIRECT COUNT 2021-05-20 22:04:00 Nemes[facility] CYTO PLEURAL FLUID 2021-05-20 22:04:00 Candido Robison [facility] LDH TOTAL BODY FLUID 2021-05-20 22:04:00 Holly Redding [facility] AFB CULTURE 2021-05-20 21:50:00 [facility] BODY FLUID 2021-05-20 21:50:00 Ricki [facility] CULTURE(AEROBIC/ANAEROBIC Medica l Branch ) XR CHEST 1 VW 2021-05-20 19:13:56 [facility] POCT GLUCOSE (AUTOMATED) 2021-05-20 16:59:00 [facility] 2021-05-20 13:25:00 Neil Thomas Felicia [facility] LACTATE DEHYDROGENASE 2021-05-20 09:50:00 [facility] BASIC METABOLIC PANEL 2021-05-20 09:50:00 Holly Redding [facility] (NA, K, CL, CO2, GLUCOSE, Medica l Branch BUN, CREATININE, CA) PROTHROMBIN TIME / INR 2021-05-20 09:50:00 Holly [facility] N-TERMINAL PRO-BNP 2021-05-20 09:50:00 Tameka Mcdaniels [facility] POCT GLUCOSE (AUTOMATED) 2021-05-20 01:35:00 Neil Thomas Uni [facility] POCT GLUCOSE (AUTOMATED) 2021-05-19 23:08:00 Neil Thomas Uni [facility] POCT GLUCOSE (AUTOMATED) 2021-05-19 17:39:00 William [facility] POCT GLUCOSE (AUTOMATED) 2021-05-19 14:04:00 [facility] BASIC METABOLIC PANEL 2021-05-19 11:24:00 [facility] (NA, K, CL, CO2, GLUCOSE, Medica l Branch BUN, CREATININE, CA) CBC WITH DIFF 2021-05-19 11:24:00 [facility] N-TERMINAL PRO-BNP 2021-05-19 11:24:00 [facility] HEPATITIS B SURFACE 2021-05-19 03:18:00 Samantha [facility] ANTIBODY [facility] J Medical Branch HEPATITIS B SURFACE 2021-05-19 03:18:00 Samantha [facility] ANTIGEN [facility] J [facility] POCT GLUCOSE (AUTOMATED) 2021-05-19 03:11:00 Neil [facility] POCT GLUCOSE (AUTOMATED) 2021-05-18 22:43:00 [facility]) 2021-05-18 17:46:00 [facility] (AUTOMATED) 2021-05-18 17:04:00 William [facility] BASIC METABOLIC PANEL 2021-05-18 15:05:00 Holly Redding [facility] (NA, K, CL, CO2, GLUCOSE, Medica l Branch BUN, CREATININE, CA) POCT GLUCOSE (AUTOMATED) 2021-05-18 13:20:00 [facility] DISCLOSURE AND CONSENT, 2021-05-18 06:01:00 Doctor Unassigned, N o [facility] MEDICAL AND SURGICAL Name Medical [facility] PROCEDURES POCT GLUCOSE (AUTOMATED) 2021-05-17 22:51:00 William [facility] POCT GLUCOSE (AUTOMATED) 2021-05-17 17:51:00 William [facility] TRANSTHORACIC ECHO (TTE) 2021-05-17 15:04:37 [facility] 2021-05-17 14:14:00 [facility] PHOSPHORUS 2021-05-17 10:03:00 William [facility] MAGNESIUM 2021-05-17 10:03:00 William [facility] BASIC METABOLIC PANEL 2021-05-17 10:03:00 William [facility] (NA, K, CL, CO2, GLUCOSE, Medica l Branch BUN, CREATININE, CA) CBC WITHOUT DIFF 2021-05-17 10:03:00 William [facility] N-TERMINAL PRO-BNP 2021-05-17 10:03:00 William [facility] POCT GLUCOSE (AUTOMATED) 2021-05-16 22:34:00 [facility] POCT GLUCOSE (AUTOMATED) 2021-05-16 17:41:00 [facility] POCT GLUCOSE (AUTOMATED) 2021-05-16 13:39:00 [facility] MAGNESIUM 2021-05-16 08:09:00 William [facility] TROPONIN I 2021-05-16 08:09:00 William [facility] BASIC METABOLIC PANEL 2021-05-16 08:09:00 William [facility] (NA, K, CL, CO2, GLUCOSE, Medica l Branch BUN, CREATININE, CA) LIPID PANEL ([id number])(TOTAL 2021-05-16 08:09:00 [facility], [facility] TRIGLYCERIDES, HDL) CBC WITHOUT DIFF 2021-05-16 08:09:00 William [facility] GLYCOSYLATED HEMOGLOBIN 2021-05-16 08:09:00 [facility] PHOSPHORUS 2021-05-16 02:06:00 William [facility] TROPONIN I 2021-05-16 02:06:00 William [facility] POCT GLUCOSE (AUTOMATED) 2021-05-16 02:05:00 William [facility] COVID-19 (ID NOW RAPID 2021-05-15 22:31:00 Dangelo Ibrahim [facility] TESTING) Medical Branch LAB ONLY COVID 2021-05-15 22:31:00 Dangelo Ibrahim [facility] INTERPRETATION [facility] XR KNEE <3 VW RIGHT 2021-05-15 22:12:44 Dangelo Ibrahim [facility] CHEST PULMONARY 2021-05-15 22:00:00 Dangelo Ibrahim [facility] ANGIOGRAM Medical Branch XR CHEST 1 VW 2021-05-15 20:32:18 [facility] LIPASE 2021-05-15 19:37:00 [facility] MAGNESIUM 2021-05-15 19:37:00 [facility] TROPONIN I 2021-05-15 19:37:00 [facility] THYROID STIMULATING 2021-05-15 19:37:00 William [facility] HORMONE [facility] COMP. METABOLIC PANEL 2021-05-15 19:37:00 Dangelo Ibrahim [facility] ([id number]) [facility] CBC WITH DIFF 2021-05-15 19:37:00 [facility] GLYCOSYLATED HEMOGLOBIN 2021-05-15 19:37[facility] PROTHROMBIN TIME / INR 2021-05-15 19:37:00 Dangelo Ibrahim [facility] D-DIMER 2021-05-15 19:37:00 [facility] N-TERMINAL PRO-BNP 2021-05-15 19:37:00 Dangelo Ibrahim [facility] HB ECG ROUTINE & RHYTHM 2021-05-15 19:13:[address] [facility] NOTICE OF PRIVACY 2021-05-15 18:55:45 Doctor Unassigned, No [facility] CONSENT/REFUSAL FOR 2021-05-15 18:55:20 [facility]igned, [facility] HOSPITAL ADMISSION 2021-05-15 06:01:00 Doctor Unassigned, No Uni versity of [facility] Chest Single View 2019-02-17 00:00:00 [facility] ermann Influenza Type A Antigen 2019-02-17 00:00:00 Mem orial Juanito Screen Influenza Type B Antigen 2019-02-17 00:00:00 Mem orial Juanito Screen Culture & Sensitivity 2019-01-25 00:00:00 Talisha Suarez Chest Pa And Lat (2 2019-01-25 00:00:00 [facility] Anaerobic Blood Culture 2018-10-09 00:00:00 Dickson Solomon Aerobic Blood Culture 2018-10-09 00:00:00 Talisha Suarez Gram Stain 2018-10-09 00:00:00 [facility] Anaerobic Culture 2018-10-09 00:00:00 Trey rogers Plan of Care Planned Activity Planned Date Details Comments Source Future Scheduled 2031-07-[address] [facility] Test 00:00:00 malignant neoplasm of [facility] Center colon (procedure) [code = 216303566] Future Scheduled 2031-07-[address] [facility] Test 00:00:00 malignant neoplasm of [facility] colon (procedure) [code = 967150850] Future Scheduled 2023-04-[address] [facility] Test 00:00:00 malignant neoplasm of [facility] Center cervix (procedure) [code = 237543874] Future Scheduled 2023-04-[address] [facility] Test 00:00:00 malignant neoplasm of [facility] Center cervix (procedure) [code = 938381040] Future Scheduled 2023-04-[address] [facility] Test 00:00:00 malignant neoplasm of [facility] Center cervix (procedure) [code = 899166193] Future Scheduled 2023-04-[address] [facility] Test 00:00:00 malignant neoplasm of [facility] Center cervix (procedure) [code = 328381188] Future Scheduled 2023-04-[address] [facility] Test 00:00:00 malignant neoplasm of [facility] Center cervix (procedure) [code = 855658111] Future Scheduled 2023-04-[address] [facility] Test 00:00:00 malignant neoplasm of [facility] Center cervix (procedure) [code = 566623585] Future Scheduled 2023-04-[address] [facility] Test 00:00:00 malignant neoplasm of [facility] Center cervix (procedure) [code = 295023912] Future Scheduled 2023-04-[address] [facility] Test 00:00:00 malignant neoplasm of [facility] Center cervix (procedure) [code = 281377076] Future Scheduled 2023-04-[address] [facility] Test 00:00:00 malignant neoplasm of [facility] Center cervix (procedure) [code = 619912563] Future Scheduled 2023-04-[address] [facility] Test 00:00:00 malignant neoplasm of Medica l Center cervix (procedure) [code = 681880695] Future Scheduled [address] [facility] - Test 00:00:00 0-64 YRS (2 of 2 - Medical C enter PPSV23) [code = PNEUMOCOCCAL VACCINE 0-64 YRS (2 of 2 - PPSV23)] Future Scheduled [address] [facility] - Test 00:00:00 0-64 YRS (2 of 2 - Medical C enter PPSV23) [code = PNEUMOCOCCAL VACCINE 0-64 YRS (2 of 2 - PPSV23)] Future Scheduled [address] [facility] - Test 00:00:00 0-64 YRS (2 of 2 - Medical C enter PPSV23) [code = PNEUMOCOCCAL VACCINE 0-64 YRS (2 of 2 - PPSV23)] Future Scheduled [address] [facility] - Test 00:00:00 0-64 YRS (2 of 2 - Medical C enter PPSV23) [code = PNEUMOCOCCAL VACCINE 0-64 YRS (2 of 2 - PPSV23)] Future Scheduled [address] [facility] - Test 00:00:00 0-64 YRS (2 of 2 - Medical C enter PPSV23) [code = PNEUMOCOCCAL VACCINE 0-64 YRS (2 of 2 - PPSV23)] Future Scheduled [address] [facility] - Test 00:00:00 0-64 YRS (2 of 2 - Medical C enter PPSV23) [code = PNEUMOCOCCAL VACCINE 0-64 YRS (2 of 2 - PPSV23)] Future Scheduled [address] [facility] - Test 00:00:00 0-64 YRS (2 of 2 - Medical C enter PPSV23) [code = PNEUMOCOCCAL VACCINE 0-64 YRS (2 of 2 - PPSV23)] Future Scheduled [address] [facility] - Test 00:00:00 0-64 YRS (2 of 2 - Medical C enter PPSV23) [code = PNEUMOCOCCAL VACCINE 0-64 YRS (2 of 2 - PPSV23)] Future Scheduled [address] [facility] - Test 00:00:00 0-64 YRS (2 of 2 - Medical C enter PPSV23) [code = PNEUMOCOCCAL VACCINE 0-64 YRS (2 of 2 - PPSV23)] Future Scheduled [address] [facility] - Test 00:00:00 0-64 YRS (2 of 2 - Medical C enter PPSV23) [code = PNEUMOCOCCAL VACCINE 0-64 YRS (2 of 2 - PPSV23)] Future Scheduled 2021-06-26 COVID-19 VACCINE (1) [facility] Test 14:10:19 [code = COVID-19 VACCINE (1)] Future Scheduled 2021-06-26 DIABETES: RETINAL EYE [facility] Test 14:10:19 EXAM [code = DIABETES: RETINAL EYE EXAM] Future Scheduled 2021-06-26 DIABETIC FOOT EXAM [facility] Test 14:10:19 [code = DIABETIC FOOT EXAM] Future Scheduled 2021-06-26 COLONOSCOPY SCREENING [facility] Test 14:10:19 [code = COLONOSCOPY SCREENING] Future Scheduled 2021-06-26 SHINGLES VACCINES (#1) M [facility] Test 14:10:19 [code = SHINGLES VACCINES (#1)] Future Scheduled 2021-06-26 BREAST CANCER [facility] Test 14:10:19 SCREENING [code = BREAST CANCER SCREENING] Future Scheduled 2021-06-26 Screening for [facility] Test 14:10:19 malignant neoplasm of cervix (procedure) [code = 039308179] Future Scheduled 2021-06-26 [facility] 14:10:19 [code = INFLUENZA VACCINE] Future Scheduled 2021-06-[address] [facility] Test 00[facility]00:00 (procedure) [code = [facility] 24968962] Future Scheduled 2021-06-[address] [facility] Test 00:00:00 (procedure) [code = [facility] 31388417] Future Scheduled 2021-06-[address] [facility] Test 00:00:00 (procedure) [code = [facility] 37238170] Future Scheduled 2021-06-[address] [facility] Test 00:00:00 (procedure) [code = [facility] 41726918] Future Scheduled 2021-06-[address] [facility] - Test 00:00:00 (procedure) [code = [facility] 03403017] Future Scheduled 2021-06-[address] [facility] Test 00:00:00 (procedure) [code = [facility] 07093217] Future Scheduled 2021-06-[address] [facility] - Test 00:00:00 (procedure) [code = [facility] 67260769] Future Scheduled 2021-06-[address] [facility] - Test 00:00:00 (procedure) [code = [facility] 68658411] Future Scheduled 2021-06-[address] [facility] - Test 00:00:00 (procedure) [code = [facility] 30994408] Future Scheduled 2021-06-[address] [facility] - Test 00:00:00 (procedure) [code = [facility] 57894957] Future Scheduled 2021-04-[address] [facility] - Test 00:00:00 (12+) [code = Medical Center DEPRESSION SCREENING (12+)] Future Scheduled 2021-04-[address] [facility] - Test 00:00:00 (12+) [code = Medical Center DEPRESSION SCREENING (12+)] Future Scheduled 2021-04-[address] [facility] - Test 00:00:00 (12+) [code = Medical Center DEPRESSION SCREENING (12+)] Future Scheduled 2021-04-[address] [facility] - Test 00:00:00 (12+) [code = Medical Center DEPRESSION SCREENING (12+)] Future Scheduled 2021-04-[address] [facility] - Test 00:00:00 (12+) [code = Medical Center DEPRESSION SCREENING (12+)] Future Scheduled 2021-04-[address] [facility] - Test 00:00:00 (12+) [code = Medical Center DEPRESSION SCREENING (12+)] Future Scheduled 2021-04-[address] [facility] - Test 00:00:00 (12+) [code = Medical Center DEPRESSION SCREENING (12+)] Future Scheduled 2021-04-[address] [facility] - Test 00:00:00 (12+) [code = Medical Center DEPRESSION SCREENING (12+)] Future Scheduled 2021-04-[address] [facility] - Test 00:00:00 (12+) [code = [facility] DEPRESSION SCREENING (12+)] Future Scheduled 2021-04-[address] [facility] - Test 00:00:00 (12+) [code = [facility] DEPRESSION SCREENING (12+)] Future Scheduled 2021-01-29 COVID-19 VACCINE (3 - [facility]:00 Booster for Pfizer Medical C enter series) [code = COVID-19 VACCINE (3 - Booster for Pfizer series)] Future Scheduled 2021-01-29 COVID-19 VACCINE (3 - [facility] Test 00:00:00 Booster for Pfizer Medical C enter series) [code = COVID-19 VACCINE (3 - Booster for Pfizer series)] Future Scheduled 2021-01-29 COVID-19 VACCINE (3 - [facility] Test 00:00:00 Booster for Pfizer Medical C enter series) [code = COVID-19 VACCINE (3 - Booster for Pfizer series)] Future Scheduled 2021-01-29 COVID-19 VACCINE (3 - [facility] Test 00:00:00 Booster for Pfizer Medical C enter series) [code = COVID-19 VACCINE (3 - Booster for Pfizer series)] Future Scheduled 2021-01-29 COVID-19 VACCINE (3 - [facility] Test 00:00:00 Booster for Pfizer Medical C enter series) [code = COVID-19 VACCINE (3 - Booster for Pfizer series)] Future Scheduled 2021-01-29 COVID-19 VACCINE (3 - [facility] Test 00:00:00 Booster for Pfizer Medical C enter series) [code = COVID-19 VACCINE (3 - Booster for Pfizer series)] Future Scheduled 2021-01-29 COVID-19 VACCINE (3 - [facility] Test 00:00:00 Booster for Pfizer Medical C enter series) [code = COVID-19 VACCINE (3 - Booster for Pfizer series)] Future Scheduled 2021-01-29 COVID-19 VACCINE (3 - [facility] Test 00:00:00 Booster for Pfizer Medical C enter series) [code = COVID-19 VACCINE (3 - Booster for Pfizer series)] Future Scheduled 2021-01-29 COVID-19 VACCINE (3 - [facility] Test 00:00:00 Booster for Pfizer Medical C enter series) [code = COVID-19 VACCINE (3 - Booster for Pfizer series)] Future Scheduled 2021-01-29 COVID-19 VACCINE (3 - [facility] Test 00:00:00 Booster for Pfizer Medical C enter series) [code = COVID-19 VACCINE (3 - Booster for Pfizer series)] Future Scheduled 2020-08-[address] [facility]00 measurement [facility] Center (procedure) [code = 79529587] Future Scheduled 2020-08-[address] [facility] Test 00:00:00 measurement Medical Center (procedure) [code = 57147579] Future Scheduled 2020-08-[address] [facility] Test 00:00:00 measurement Medical Center (procedure) [code = 00166561] Future Scheduled 2020-08-[address] [facility] Test 00:00:00 measurement Medical Center (procedure) [code = 23920848] Future Scheduled 2020-08-[address] [facility] Test 00:00:00 measurement Medical Center (procedure) [code = 46833818] Future Scheduled 2020-08-[address] [facility] Test 00:00:00 measurement Medical Center (procedure) [code = 66803872] Future Scheduled 2020-08-[address] [facility] Test 00:00:00 measurement Medical Center (procedure) [code = 20278563] Future Scheduled 2020-08-[address] [facility] Test 00:00:00 measurement Medical Center (procedure) [code = 63776217] Future Scheduled 2020-08-[address] [facility] Test 00:00:00 measurement Medical Center (procedure) [code = 38307063] Future Scheduled 2020-08-[address] [facility] Test 00:00:00 measurement Medical Center (procedure) [code = 02807595] Future Scheduled 2019-11-[address] [facility]00[facility] [code = 694180390] Future Scheduled 2019-11-[address] [facility] Test 00:00:00 malignant neoplasm of Medica [facility] Center breast (procedure) [code = 323391829] Future Scheduled 2019-11-[address] [facility] Test 00:00:00 malignant neoplasm of [facility] Center breast (procedure) [code = 519087076] Future Scheduled 2019-11-[address] [facility] Test 00:00:00 malignant neoplasm of [facility]ica [facility] Center breast (procedure) [code = 590559612] Future Scheduled 2019-11-[address] [facility] Test 00:00:00 malignant neoplasm of [facility]ica [facility] Center breast (procedure) [code = 786196712] Future Scheduled 2019-11-[address] [facility] Test 00:00:00 malignant neoplasm of Medica [facility] Center breast (procedure) [code = 464137957] Future Scheduled 2019-11-[address] [facility] Test 00:00:00 malignant neoplasm of Medica [facility] Center breast (procedure) [code = 325203200] Future Scheduled 2019-11-[address] [facility] Test 00:00:00 malignant neoplasm of [facility]ica [facility] Center breast (procedure) [code = 831860424] Future Scheduled 2019-11-[address] [facility] Test 00:00:00 malignant neoplasm of [facility]ica [facility] Center breast (procedure) [code = 137140624] Future Scheduled 2019-11-[address] [facility] Test 00:00:00 malignant neoplasm of Medica l Center breast (procedure) [code = 304559133] Future Scheduled 2018-06-[address] [facility] Test 00:00:00 WELLNESS (YEAR 2 or Medical Center FIRST YEAR if no IPPE) [code = MEDICARE ANNUAL WELLNESS (YEAR 2 or FIRST YEAR if no IPPE)] Future Scheduled 2018-06-[address] [facility] Test 00:00:00 WELLNESS (YEAR 2 or Medical Center FIRST YEAR if no IPPE) [code = MEDICARE ANNUAL WELLNESS (YEAR 2 or FIRST YEAR if no IPPE)] Future Scheduled 2018-06-[address] [facility] Test 00:00:00 WELLNESS (YEAR 2 or Medical Center FIRST YEAR if no IPPE) [code = MEDICARE ANNUAL WELLNESS (YEAR 2 or FIRST YEAR if no IPPE)] Future Scheduled 2018-06-[address] [facility] Test 00:00:00 WELLNESS (YEAR 2 or Medical Center FIRST YEAR if no IPPE) [code = MEDICARE ANNUAL WELLNESS (YEAR 2 or FIRST YEAR if no IPPE)] Future Scheduled 2018-06-[address] [facility] Test 00:00:00 WELLNESS (YEAR 2 or Medical Center FIRST YEAR if no IPPE) [code = MEDICARE ANNUAL WELLNESS (YEAR 2 or FIRST YEAR if no IPPE)] Future Scheduled 2018-06-[address] [facility] Test 00:00:00 WELLNESS (YEAR 2 or Medical Center FIRST YEAR if no IPPE) [code = MEDICARE ANNUAL WELLNESS (YEAR 2 or FIRST YEAR if no IPPE)] Future Scheduled 2018-06-[address] [facility] Test 00:00:00 WELLNESS (YEAR 2 or Medical Center FIRST YEAR if no IPPE) [code = MEDICARE ANNUAL WELLNESS (YEAR 2 or FIRST YEAR if no IPPE)] Future Scheduled 2018-06-[address] [facility] Test 00:00:00 WELLNESS (YEAR 2 or Medical Center FIRST YEAR if no IPPE) [code = MEDICARE ANNUAL WELLNESS (YEAR 2 or FIRST YEAR if no IPPE)] Future Scheduled 2018-06-[address] [facility] Test 00:00:00 WELLNESS (YEAR 2 or Medical Center FIRST YEAR if no IPPE) [code = MEDICARE ANNUAL WELLNESS (YEAR 2 or FIRST YEAR if no IPPE)] Future Scheduled 2018-06-[address] [facility] Test 00:00:00 WELLNESS (YEAR 2 or Medical Center FIRST YEAR if no IPPE) [code = MEDICARE ANNUAL WELLNESS (YEAR 2 or FIRST YEAR if no IPPE)] Future Scheduled 2007-09-05 SHINGLES VACCINES ([address] [facility] - Test 00:00:00 of 2) [code = SHINGLES Medic al Center VACCINES (1 of 2)] Future Scheduled 2007-09-05 SHINGLES VACCINES ([address] [facility] - Test 00:00:00 of 2) [code = SHINGLES Medic al Center VACCINES (1 of 2)] Future Scheduled 2007-09-05 SHINGLES VACCINES ([address] [facility] - Test 00:00:00 of 2) [code = SHINGLES Medic al Center VACCINES (1 of 2)] Future Scheduled 2007-09-05 SHINGLES VACCINES ([address] [facility] - Test 00:00:00 of 2) [code = SHINGLES Medic al Center VACCINES (1 of 2)] Future Scheduled 2007-09-05 SHINGLES VACCINES ([address] [facility] - Test 00:00:00 of 2) [code = SHINGLES Medic al Center VACCINES (1 of 2)] Future Scheduled 2007-09-05 SHINGLES VACCINES ([address] [facility] - Test 00:00:00 of 2) [code = SHINGLES Medic al Center VACCINES (1 of 2)] Future Scheduled 2007-09-05 SHINGLES VACCINES ([address] [facility] - Test 00:00:00 of 2) [code = SHINGLES Medic al Center VACCINES (1 of 2)] Future Scheduled 2007-09-05 SHINGLES VACCINES ([address] [facility] - Test 00:00:00 of 2) [code = SHINGLES Medic al Center VACCINES (1 of 2)] Future Scheduled 2007-09-05 SHINGLES VACCINES ([address] [facility] - Test 00:00:00 of 2) [code = SHINGLES Medic al Center VACCINES (1 of 2)] Future Scheduled 2007-09-05 SHINGLES VACCINES ([address] [facility] - Test 00:00:00 of 2) [code = SHINGLES Medic al Center VACCINES (1 of 2)] Future Scheduled 1976 DTAP/TDAP/TD [facility]ACCINES [facility] Test 00:00:00 (1 - Tdap) [code = Medical C enter DTAP/TDAP/TD VACCINES (1 - Tdap)] Future Scheduled 1976 DTAP/TDAP/TD VACCINES [facility] Test 00:00:00 (1 - Tdap) [code = Medical C enter DTAP/TDAP/TD VACCINES (1 - Tdap)] Future Scheduled 1976 DTAP/TDAP/TD VACCINES [facility] Test 00:00:00 (1 - Tdap) [code = Medical C enter DTAP/TDAP/TD VACCINES (1 - Tdap)] Future Scheduled 1976 DTAP/TDAP/TD VACCINES [facility] Test 00:00:00 (1 - Tdap) [code = Medical C enter DTAP/TDAP/TD VACCINES (1 - Tdap)] Future Scheduled 1976 DTAP/TDAP/TD VACCINES [facility] Test 00:00:00 (1 - Tdap) [code = Medical C enter DTAP/TDAP/TD VACCINES (1 - Tdap)] Future Scheduled 1976 DTAP/TDAP/TD VACCINES [facility] Test 00:00:00 (1 - Tdap) [code = Medical C enter DTAP/TDAP/TD VACCINES (1 - Tdap)] Future Scheduled 1976 DTAP/TDAP/TD VACCINES [facility] Test 00:00:00 (1 - Tdap) [code = Medical C enter DTAP/TDAP/TD VACCINES (1 - Tdap)] Future Scheduled 1976 DTAP/TDAP/TD VACCINES [facility] Test 00:00:00 (1 - Tdap) [code = Medical C enter DTAP/TDAP/TD VACCINES (1 - Tdap)] Future Scheduled 1976 DTAP/TDAP/TD VACCINES [facility] 00:[facility]:00 (1 - Tdap) [code = Medical C enter DTAP/TDAP/TD VACCINES (1 - Tdap)] Future Scheduled 1976 DTAP/TDAP/TD VACCINES [facility] 00:00:00 (1 - Tdap) [code = Medical C enter DTAP/TDAP/TD VACCINES (1 - Tdap)] Future Scheduled 1967-09-[address] DI[address] EXAM [facility] 00:00:00 [code = DIABETIC EYE [facility] EXAM] Future Scheduled 1967-09-[address] [facility] examination Medical Center (regime/therapy) [code = 233528486] Future Scheduled 1967-09-05 Urine screening for [facility] 00:00:00 protein (procedure) Medical Center [code = 275753171] Future Scheduled 1967-09-[address] DI[address] EX[address] [facility] 00:00:00 [code = DIABETIC EYE Medical Center EXAM] Future Scheduled 1967-09-[address] [facility] 00:[facility]:00 examination Medical Center (regime/therapy) [code = 644142441] Future Scheduled 1967-09-05 Urine screening for [facility] 00:00:00 protein (procedure) Medical Center [code = 499347810] Future Scheduled 1967-09-[address] DIAB[address] EXAM [facility] 00:00:00 [code = DIABETIC EYE Medical Center EXAM] Future Scheduled 1967-09-[address] [facility] 00:[facility]:00 examination Medical Center (regime/therapy) [code = 547883147] Future Scheduled 1967-09-05 Urine screening for [facility] 00:00:00 protein (procedure) Medical Center [code = 930611117] Future Scheduled 1967-09-[address] DIAB[address] EXAM [facility] 00:00:00 [code = DIABETIC EYE Medical Center EXAM] Future Scheduled 1967-09-[address] [facility] 00:[facility]:00 examination Medical Center (regime/therapy) [code = 452866571] Future Scheduled 1967-09-05 Urine screening for [facility] 00:00:00 protein (procedure) Medical Center [code = 259319195] Future Scheduled 1967-09-[address] DIAB[address] EYE EXAM [facility] 00:00:00 [code = DIABETIC EYE Medical Center EXAM] Future Scheduled 1967-09-[address] [facility] 00:[facility]:00 examination Medical Center (regime/therapy) [code = 368001727] Future Scheduled 1967-09-05 Urine screening for [facility] 00:00:00 protein (procedure) Medical Center [code = 818223658] Future Scheduled 1967-09-[address] DIAB[address]YE EXAM [facility] 00:00:00 [code = DIABETIC EYE Medical Center EXAM] Future Scheduled 1967-09-[address] [facility] 00:00:00 examination Medical Center (regime/therapy) [code = 245624725] Future Scheduled 1967-09-05 Urine screening for [facility] 00:00:00 protein (procedure) Medical Center [code = 341294418] Future Scheduled 1967-09-[address] DIAB[address] EXAM [facility] 00:00:00 [code = DIABETIC EYE Medical Center EXAM] Future Scheduled 1967-09-[address] [facility] 00:[facility]:00 examination Medical Center (regime/therapy) [code = 776809579] Future Scheduled 1967-09-05 Urine screening for [facility] 00:00:00 protein (procedure) Medical Center [code = 226876096] Future Scheduled 1967-09-[address] DIAB[address]YE EXAM [facility] 00:00:00 [code = DIABETIC EYE Medical Center EXAM] Future Scheduled 1967-09-[address] [facility] 00:00:00 examination Medical Center (regime/therapy) [code = 840138484] Future Scheduled 1967-09-05 Urine screening for [facility] 00:00:00 protein (procedure) Medical Center [code = 404858495] Future Scheduled 1967-09-[address] DIABET[address] EYE EXAM [facility] 00:00:00 [code = DIABETIC EYE Medical Center EXAM] Future Scheduled 1967-09-[address] [facility] 00:00:00 examination Medical Center (regime/therapy) [code = 798485464] Future Scheduled 1967-09-05 Urine screening for [facility] 00:00:00 protein (procedure) Medical Center [code = 218443232] Future Scheduled 1967-09-[address] DIABETIC EYE EXAM [facility] 00:00:00 [code = DIABETIC EYE Medical Center EXAM] Future Scheduled 1967-09-[address] [facility] 00:00:00 examination Medical Center (regime/therapy) [code = 777677189] Future Scheduled 1967-09-05 Urine screening for [facility] 00:00:00 protein (procedure) Medical Center [code = 635491807] Future Scheduled [address] [facility] 00:00:00 malignant neoplasm of [facility]ica [facility] Center colon (procedure) [code = 788525230] Future Scheduled [address] [facility] 00:00:00 [facility] colon (procedure) [code = 775744638] Future Scheduled [address] [facility] colon (procedure) [code = 534952707] Future Scheduled [address] [facility] 00:00:00 (combo) [code = CT Medical C enter Colonography (combo)] Future Scheduled [address] [facility] 00:00:00 malignant [facility] colon (procedure) [code = 310551510] Future Scheduled [address] [facility] 00:00:00 malignant [facility] colon (procedure) [code = 775573195] Future Scheduled [address] [facility] 00:00:00 malignant ne[facility] colon (procedure) [code = 593050872] Future Scheduled [address] [facility] 00:00:00 malignant [facility] colon (procedure) [code = 588870369] Future Scheduled 1955 Sigmoidoscopy [code = [facility] S[facility]oscopy] [facility] Future Scheduled [address] [facility] 00:00:00 (combo) [code = CT Medical C enter Colonography (combo)] Future Scheduled [address] [facility] 00:00:00 malignant [facility] colon (procedure) [code = 825535572] Future Scheduled [address] [facility] 00:00:00 malignant [facility] colon (procedure) [code = 248609323] Future Scheduled [address] [facility] 00:00:00 malignant ne[facility] colon (procedure) [code = 488510580] Future Scheduled [address] [facility] 00:00:00 malignant [facility] colon (procedure) [code = 282685318] Future Scheduled 1955 Sigmoidoscopy [code = [facility] S[facility]oscopy] [facility] Cent[facility] r Future Scheduled [address] [facility] 00:00:00 (combo) [code = CT Medical C enter Colonography (combo)] Future Scheduled [address] [facility] 00:00:00 malignant ne[facility] colon (procedure) [code = 727540741] Future Scheduled [address] [facility] 00:00:00 malignant neoplasm [facility] colon (procedure) [code = 428173544] Future Scheduled [address] [facility] 00:00:00 malignant ne[facility] colon (procedure) [code = 746954106] Future Scheduled [address] [facility] 00:00:00 malignant neoplasm [facility] colon (procedure) [code = 194828739] Future Scheduled 1955 Sigmoidoscopy [code = [facility] S[facility]oscopy] [facility] Cent[facility] r Future Scheduled [address] [facility] 00:00:00 (combo) [code = CT Medical C enter Colonography (combo)] Future Scheduled [address] [facility] 00:00:00 malignant ne[facility] colon (procedure) [code = 445802405] Future Scheduled [address] [facility] 00:00:00 malignant ne[facility] colon (procedure) [code = 002966575] Future Scheduled [address] [facility] 00:00:00 malignant [facility] colon (procedure) [code = 616311788] Future Scheduled [address] [facility] 00:00:00 malignant neoplasm [facility] colon (procedure) [code = 361771978] Future Scheduled 1955 Sigmoidoscopy [code = [facility] S[facility]oscopy] [facility] Cent[facility] r Future Scheduled [address] [facility] 00:00:00 (combo) [code = CT Medical C enter Colonography (combo)] Future Scheduled [address] [facility] 00:00:00 malignant [facility] colon (procedure) [code = 107543933] Future Scheduled [address] [facility] 00:00:00 malignant [facility] colon (procedure) [code = 565181508] Future Scheduled 1955 Sigmoidoscopy [code = [facility] Sigmoidoscopy] Medical Cash r Future Scheduled [address] [facility] 00:00:00 malignant [facility] colon (procedure) [code = 996719145] Future Scheduled [address] [facility] 00:00:00 malignant neoplasm [facility] Center colon (procedure) [code = 945923059] Encounters Start End Encounter Admission Attending Care Care Encounter Source Date/Time Date/Time Type Type Clinicians Facility Department ID 2018-09-18 Outpatient [id number] 08:26:04 2021-07-06 2021-07-06 Outpatient R BING [facility] [id number] [facility] 10:30:00 10:30:00 MARCIANO nuñez [facility] 2021-06-07 2021-07-04 Inpatient ER LOGAN RUSSO [facility] Surgery [id number] [facility] 19:44:00 14:34:00 2021-06-07 2021-07-04 Hospital ER Kip, Rony [facility] [id number] 19:44:00 14[facility]34:00 [facility] Clary Ballard Umar Moon Logan R 2021-07-03 2021-07-03 Surgery Beronica [facility] [id number] 15:05:00 16:05:00 Melva Torres [facility] 2021-07-03 2021-07-03 Anesthesia Mitchel [facility] [id number] 14:49:00 15:35:00 Event [facility] 2021-06-30 2021-06-30 Surgery Krzysztof Dodd [facility] [id number] 19:35:00 22:24:00 [facility] 2021-06-26 2021-06-26 Surgery Krzysztof Dodd [facility] [id number] 07:30:00 11:59:00 [facility] 2021-06-25 2021-06-25 Anesthesia Marissa [facility] [id number] 23:59:59 23:59:59 Event Fadia [facility] 2021-06-18 2021-06-18 Anesthesia Asad Santana [facility] [id number] [facility] 07:58:00 14:52:00 Event [facility] 2021-06-18 2021-06-18 Surgery Logan Russo [facility] [id number] 08:00:00 14:45:00 [facility] 2021-06-16 2021-06-16 Anesthesia Sade Argueta [facility] [id number] 11:58:00 13:03:00 Event Robert Allen [facility] 2021-06-16 2021-06-16 Surgery Donte, [facility] [id number] 10:30:00 12:00:00 [facility] 2021-06-09 2021-06-09 Outpatient [facility] [id number] [facility] 00:00:00 23:59:00 [facility] 2021-06-07 2021-06-07 Outpatient [facility] [id number] [facility] 19:44:00 23:59:00 [facility] 2021-06-07 2021-06-07 Orders [facility] [id number] 00:00:00 00:00:00 Only [facility] 2021-06-07 2021-06-07 Travel [facility] [id number] [facility] 00:[facility] 00:[facility]00 [facility] 2021-05-26 2021-05-26 Transition DAKOTA Bennett [id number] Univers 00:00:00 00:00:00 of Care Rakan JONESY [id number] [place] [id number] [facility] [address] 2021-05-26 2021-05-26 Mauricio Hudson [facility] [id number] 00:00:00 00:00:00 [facility] 2021-05-25 2021-05-25 Transition DAKOTA Bennett [id number] Univers 00:00:00 00:00:00 of Care Rakan [place] [id number] [place] [id number] [facility] [address] 2021-05-15 2021-05-22 Hospital Dangelo Ibrahim [facility] [id number] Univers 13:03:00 21:15:00 Encounter Neil Thomas [id number] [place] [facility] [id number] [facility] [address] 2021-05-15 2021-05-22 Inpatient X WILLIAM [facility] NILESH [id number] Univers 13:03:00 21:15:00 NEIL itzenia of [facility] 2021-05-18 2021-05-18 Patient Mendez [facility] [id number] Univers 00:00:00 00:00:00 Outreach [facility] [id number] i ty of [place] 4.2.7.2.686 Socrates as SUAD?BLEA [phone] Ar adam [address] MEDICAL OFFICE BUILDING 2020-08-28 2020-08-28 Orders Fuentes [facility] [id number] 00:00:00 00:00:00 Only [facility] 2020-08-28 2020-08-28 Abstract Fuentes [facility] [id number] 00:00:00 00:00:00 [facility] 2020-08-06 2020-08-06 Telephone Frazier, [facility] [id number] 00:00:00 00:00:00 [facility] 2020-08-06 2020-08-06 Documentat Frazier, [facility] [id number] 00:00:00 00:00:00 [facility] 2020-08-06 2020-08-06 Abstract Frazier, [facility] [id number] 00:00:00 00:00:00 [facility] 2020-08-04 2020-08-04 Documentcalli Frazier, [facility] [id number] 00:00:00 00:00:00 [facility] 2020-07-28 2020-07-28 Documentat Frazier, [facility] [id number] 00:00:00 00:00:00 [facility] 2020-07-28 2020-07-28 Abstract Frazier, [facility] [id number] 00:00:00 00:00:00 [facility] 2020-07-25 2020-07-25 Documentcalli Frazier, [facility] [id number] 00:00:00 00:00:00 [facility] 2020-07-24 2020-07-24 Documentat Frazier, [facility] [id number] 00:00:00 00:00:00 [facility] 2020-07-24 2020-07-24 Documentat Frazier, [facility] [id number] 00:00:00 00:00:00 [facility] 2020-07-24 2020-07-24 Abstract Frazier, [facility] [id number] 00:00:00 00:00:00 [facility] 2020-04-16 2020-04-16 Office Kim [facility] [id number] 12:56:21 13:26:21 Visit Pascale Roberts 350.1.13.10 [place] 4.2.7.2.686 Carmelina [id number] [facility] [address] Building 2019-02-18 2019-02-[address] [id number] Memoria 03:46:00 22:27:00 [facility] [place] 2019-01-26 2019-01-[address] [id number] [facility] 01:39:00 06:10:00 [facility] [place] EMERGENCY DEPT 2018-10-09 2018-10-[address] [id number] [facility] 09:44:00 21:45:00 [facility] [place] Patsy nn 2018-01-22 2018-01-22 Emergency E MHSE [id number] [facility] 16:17:00 16:17:00 [facility] l Results Test Description Test Time Test Comments Results Result Comments Source POC-Glucose meter 2021-07-04 08:45:23 Test Item Value Reference Range Interpretation Comme nts POC-Glucose Meter (test code = 92 mg/dL 70-110 : [facility] 1538) [facility], 770 30: [employer] Program Associate/Techni kelle ID = [id number] for EDMUNDO BARRAGAN Lab Interpretation (test code = Normal 33067-3) [facility] [id number] 08:45:23 Test Item Value Reference Range Interpretation Comments POC-GLUCOSE METER 92 mg/dL 70-110 : TESTED A T [facility] 6720 (BEAKER) (test code = YUDY Vaca [facility], 1538) 652[address]: [employer] Services Program Associate/Techni kelle ID = [id number] for ORPH EY, EDMUNDO RAD, CHEST, 1 VIEW, NON [id number] 07:59:00Reason for exam:->post-opShould this be performed at the bedside?->Yes [facility] : 1955 Sex: FFINAL REPORT RAD, CHEST, 1 VIEW, NON DEPT INDICATION: post-op NAZ RISON: Prior day's exam FINDINGS: Portable frontal view of the chest. IMPRESSION: Support Lines: Sternotomy wires. Central catheter tip overlies the SVC. Pacer device. Lungs and pleura: Bilateral effusions and adjacent atelectasis are unchanged. No significant pneumothorax. Heart and mediastinum: S table contours. Stable surgical changes. Additional findings: None. Signed: Bayron Cosme MDReportVerified Date/Time: 07/04/2021 07:59:51 Electronically signed by: BAYRON COSME MD on07/04/2021 07:59 AM BASIC METABOLIC [id number] 06:24:45 Test Item Value Reference Range Interpretation Comments SODIUM (BEAKER) 135 meq/L 136-145 L (test code = 381) POTASSIUM (BEAKER) 4.1 meq/L 3.5-5.1 (test code = 379) CHLORIDE (BEAKER) 100 meq/L 98-107 (test code = 382) CO2 (BEAKER) (test 26 meq/L 22-29 code = 355) BLOOD UREA NITROGEN 15 mg/dL 7-21 (BEAKER) (test code = 354) CREATININE (BEAKER) 2.79 mg/dL 0.57-1.25 H (test code = 358) GLUCOSE RANDOM 100 mg/dL 70-105 (BEAKER) (test code = 652) CALCIUM (BEAKER) 8.3 mg/dL 8.4-10.2 L (test code = 697) EGFR (BEAKER) (test 17 mL/min/1.73 ESTIMA LEVI GFR IS code = 1092) sq m NOT ACCURATE CREATININE CLEARANCE IN PREDICTING GLOMERULAR FILTRATION RATE . ESTIMATED GFR I S NOT APPLICABLE FOR DIALYSIS PATIEN TS. [employer] Associate ID - [id number] 06:15:51 Test Item Value Reference Range Interpretation Comments MAGNESIUM (BEAKER) (test code = 1.9 mg/dL 1.6-2.6 627) [employer] Associate ID - [id number] 06:15:51 Test Item Value Reference Range Interpretation Comments PHOSPHORUS (BEAKER) (test code = 3.1 mg/dL 2.3-4.7 604) [employer] Program Associate ID - [id number] (HEMOGRAM ONLY)2021-07-04 05:44:21 Test Item Value Reference Range Interpretation Comments WHITE BLOOD CELL COUNT 4.3 K/ L 3.5-10.5 (BEAKER) (test code = 775) RED BLOOD CELL COUNT 2.41 M/ L 3.93-5.22 L (BEAKER) (test code = 761) HEMOGLOBIN (BEAKER) 7.3 GM/DL 11.2-15.7 L (test code = 410) HEMATOCRIT (BEAKER) 24.1 % 34.1-44.9 L (test code = 411) MEAN CORPUSCULAR 100.0 fL 79.4-94.8 H Discordant result VOLUME (BEAKER) (test compar ed to previous code = 753) result. Clinica l correlation req uired MEAN CORPUSCULAR 30.3 pg 25.6-32.2 HEMOGLOBIN (BEAKER) (test code = 751) MEAN CORPUSCULAR 30.3 GM/DL 32.2-35.5 L HEMOGLOBIN CONC (BEAKER) (test code = 752) RED CELL DISTRIBUTION 21.6 % 11.7-14.4 H WIDTH (BEAKER) (test code = 412) PLATELET COUNT 98 K/CU MM 150-450 L (BEAKER) (test code = 756) MEAN PLATELET VOLUME 11.4 fL 9.4-12.3 (BEAKER) (test code = 754) NUCLEATED RED BLOOD 0 /100 WBC 0-0 CELLS (BEAKER) (test code = 413) SARS-CoV2/RT-PCR (Asymptomatic ONLY)2021-07-04 00:21:04 Test Item Value Reference Range Interpretation Comments SARS-COV2/RT-PCR Negative Not Detected, (test code = Negative, See 69159-0) external report for linked test SARS-COV-2 [facility] PERFORM[facility] (test code = 84322-9) BRANDI (test code = Negative result for this BRANDI) test determines that SARS-CoV-2 RNA was not present in the specimen above the Limit of Detection (LOD). However, Negative results do not preclude SARS-CoV-2 infection and should not be used as the sole basis for treatment or patient management decisions. Negative results must be combined with clinical observations, patient history, and epidemiological information. A false negative result may occur if a specimen is improperly collected, transported or handled. A false negative result should be considered if patient's recent exposures or clinical presentation indicate that COVID-19 (SARS-CoV-2) is likely and diagnostic tests for other causes of illness are negative. Re-testing should be considered in cases of suspected false negatives. The limit of detection for this assay is 800 copies/mL. This SARS CoV-2 test is a real-time RT-PCR test intended for the qualitative detection of nucleic acid from SARS-CoV-2 in a nasopharyngeal swab specimen collected from individuals suspected of COVID-19 by their healthcare provider. This test has not been Food and Drug Administration (FDA) cleared or approved. This is a modified version of an approved Emergency Use Authorization (EUA) and is in the process of review by the FDA. Once authorized by the FDA, the issued EUA will be effective until the declaration that circumstances exist justifying the authorization of the emergency use of in vitro diagnostic tests for detection and/or diagnosis of COVID-19 is terminated under Section 564(b)(2) of the Act or the EUA is revoked under Section 564(g) of the Act. Fact Sheet for Healthcare Providers:https://www.delicious ideIntelliQuest Information [employer]Myreks/sites/default/f radha/product/documents/F act_Sheet_HC_Providers_L rmb_VLCM-SmQ-6.pdf Fact Sheet for Healthcare Patients:https://www.[employer].Myreks/sites/default/fi les/product/documents/Fa ct_Sheet_Patients_Lyra_S ARS-CoV-2.pdf Performing Laboratory:[facility] [place] [address] [facility])2021-07-04 00:21:04 Test Item Value Reference Range Interpretation Comments SARS-COV2/RT-PCR (test Negative Not Detected, Negative, code = 3256737) See external report for linked test SARS-COV-[address] [facility] (test code = 1620252) Negative result for this test determines that SARS-CoV-2 RNA was not present in the specimen above the Limit of Detection (LOD). However, Negative results do not preclude SARS-CoV-2 infection and should not be used as the sole basis for treatment or patient management decisions. Negative results mustbe combined with clinical observations, patient history, and epidemiological information. A false negative result may occur if a specimen is improperly collected, transported or handled. A false negative result should be considered if patient's recent exposures or clinical presentation indicate that COVID-19 (SARS-CoV-2) is likely and diagnostic tests for other causes of illness are negative. Re-testing should be considered in cases of suspected false negatives.The limit of detection for this assay is 800 copies/mL.This SARS CoV-2 test is a real-time RT-PCR test intended for the qualitative detection of nucleic acid from SARS-CoV-2 in a nasopharyngeal swab specimen collected from individuals susp ected of COVID-19 by their healthcare provider.This test has not been Food and Drug Administration (FDA) cleared or approved. This is a modified version of an approved Emergency Use Authorization (EUA) and is in the process of review by the FDA. Once authorized by the FDA, the issued EUA will be effective until the declaration that circumstances exist justifying the authorization of the emergency use of in vitro diagnostic tests for detection and/or diagnosis of COVID-19 is terminated under Section 564(b)(2) of the Act or the EUA is revoked under Section 564(g) of the Act.Fact Sheet for Healthcare Providers:https://www.[employer].Myreks/sites/default/files/product/documents/Fact_Shee i_IS_Blzhfpnhg_Ldws_VZDS-YwE-6.pdfFact Sheet for Healthcare Patients:https://www.[employer].Myreks/sites/default/files/product/ documents/Yiff_Jipaf_Yvoutyrs_Zdzf_KAQC-VgP-3.pdfPerforming Laboratory:[facility], [place] [address]TSOE-KLTAODO METER 2021-07-03 21:29:18 Test Item Value Reference Range Interpretation Comments POC-GLUCOSE METER 169 mg/dL 70-110 H : TESTED A T [facility] 6720 (BEAKER) (test code = [facility], 1538) [address]: University Services Program Associate/Techni kelle ID = [id number] for Co rtez, Keyla POCT-GLUCOSE [id number] 17:51:28 Test Item Value Reference Range Interpretation Comments POC-GLUCOSE METER 110 mg/dL 70-110 : TESTED A T [facility] 6720 (BEAKER) (test code = [facility], 1538) 19274: [employer] Associate/Techni kelle ID = [id number] for OR EDMUNDO BOWIE POCT-GLUCOSE [id number] 16:18:01 Test Item Value Reference Range Interpretation Comments POC-GLUCOSE METER 78 mg/dL 70-110 : TESTED A T [facility]20 (BEAKER) (test code = [facility], 1538) 51767: [employer] Associate/Techni kelle ID = [id number] for Naren palacio Sarwat POC-Glucose [id number] 13:43:00 Test Item Value Reference Range Interpretation Comments POC-Glucose Meter (test 82 mg/dL 70-110 : TE STED AT [facility] code = 1538) [address] [place] [address], 770 30: [employer] Associate/Techni kelle ID = [id number] for RENETTA STEARNS Lab Interpretation (test Normal code = 28036-4) [facility] [id number] 13:43:00 Test Item Value Reference Range Interpretation Comments POC-GLUCOSE METER 82 mg/dL 70-110 : TESTED A T [facility] (BEAKER) (test code = [facility], 1538) 95236: [employer] Associate/Techni kelle ID = [id number] for RENETTA STEARNS POCT-GLUCOSE [id number] 08:55:17 Test Item Value Reference Range Interpretation Comments POC-GLUCOSE METER 85 mg/dL 70-110 : TESTED A T [facility] 6720 (BEAKER) (test code = [place], 1538) 21661: [employer] Associate/Techni kelle ID = [id number] for EDMUNDO DÍAZ RAD, CHEST, 1 VIEW, NON [id number] 07:19:00Reason for exam:->post-opShould this be performed at the bedside?->Yes [facility] 1955 Sex: FFINAL REPORT RAD, CHEST, 1 VIEW, NON DEPT INDICATION: post-op NAZ RISON: Prior day's exam TECHNIQUE: Portable frontal view of the chest. FINDINGS: Support Lines and Devices: Stable. Lungs and pleura: Unchanged airspace and pleural opacities. No pneumothorax identified. Heart and mediastinum: Stable contours. Stable surgical changes. Additional findings: None. IMPRESSION: 1.No significant change from prior exam.2.Small right pleural effusion3.Right retrocardiac opacity, representing singly or in combination airspace disease, atelectasis, or pleural effusion. Signed: Boogie Conteh MDReport Verified Date/Time: 07/03/2021 07:19:27 Reading Location: [facility] Reading Room BASIC METABOLIC [id number] 04:12:43 Test Item Value Reference Range Interpretation Comments SODIUM (BEAKER) 139 meq/L 136-145 (test code = 381) POTASSIUM (BEAKER) 4.4 meq/L 3.5-5.1 (test code = 379) CHLORIDE (BEAKER) 104 meq/L 98-107 (test code = 382) CO2 (BEAKER) (test 25 meq/L 22-29 code = 355) BLOOD UREA NITROGEN 26 mg/dL 7-21 H (BEAKER) (test code = 354) CREATININE (BEAKER) 4.09 mg/dL 0.57-1.25 H (test code = 358) GLUCOSE RANDOM 92 mg/dL 70-105 (BEAKER) (test code = 652) CALCIUM (BEAKER) 8.5 mg/dL 8.4-10.2 (test code = 697) EGFR (BEAKER) (test 11 mL/min/1.73 ESTIMA LEVI GFR IS code = 1092) sq m NOT ACCURATE CREATININE CLEARANCE IN PREDICTING GLOMERULAR FILTRATION RATE . ESTIMATED GFR I S NOT APPLICABLE FOR DIALYSIS PATIEN TS. [employer] Services Program Associate ID - RAKAN [id number] 03:43:29 Test Item Value Reference Range Interpretation Comments MAGNESIUM (BEAKER) (test code = 2.1 mg/dL 1.6-2.6 627) [employer] Associate ID Bassam BL[place] [id number] 03:43:29 Test Item Value Reference Range Interpretation Comments PHOSPHORUS (BEAKER) (test code = 3.4 mg/dL 2.3-4.7 604) [employer] Associate ID Bassam BLED[place]E [facility] (HEMOGRAM ONLY)2021-07-03 03:25:24 Test Item Value Reference Range Interpretation Comments WHITE BLOOD CELL COUNT (BEAKER) 3.6 K/ L 3.5-10.5 (test code = 775) RED BLOOD CELL COUNT (BEAKER) 2.50 M/ L 3.93-5.22 L (test code = 761) HEMOGLOBIN (BEAKER) (test code = 7.6 GM/DL 11.2-15.7 L 410) HEMATOCRIT (BEAKER) (test code = 24.0 % 34.1-44.9 L 411) MEAN CORPUSCULAR VOLUME (BEAKER) 96.0 fL 79.4-94.8 H (test code = 753) MEAN CORPUSCULAR HEMOGLOBIN 30.4 pg 25.6-32.2 (BEAKER) (test code = 751) MEAN CORPUSCULAR HEMOGLOBIN CONC 31.7 GM/DL 32.2-35.5 L (BEAKER) (test code = 752) RED CELL DISTRIBUTION WIDTH 20.7 % 11.7-14.4 H (BEAKER) (test code = 412) PLATELET COUNT (BEAKER) (test code 81 K/CU MM 150-450 L = 756) MEAN PLATELET VOLUME (BEAKER) 10.3 fL 9.4-12.3 (test code = 754) NUCLEATED RED BLOOD CELLS (BEAKER) 0 /100 WBC 0-0 (test code = 413) POC-Glucose [id number] 21:37:50 Test Item Value Reference Range Interpretation Comments POC-Glucose Meter (test 97 mg/dL 70-110 : TE STED AT [facility] code = 1538) [address] [place] [address], 770 30: [employer] Services Program Associate/Techni kelle ID = [id number] for WASHINGTON MACKENZIE Lab Interpretation (test Normal code = 47197-0) [facility] [id number] 21:37:50 Test Item Value Reference Range Interpretation Comments POC-GLUCOSE METER 97 mg/dL 70-110 : TESTED A T [facility] 6720 (BEAKER) (test code = [facility], 153) 03808: [employer] Services Program Associate/Techni kelle ID = [id number] for JOSIE SHAFERO POCT-GLUCOSE [id number] 18:00:54 Test Item Value Reference Range Interpretation Comments POC-GLUCOSE METER 166 mg/dL 70-110 H : TESTED A T [facility] 6720 (BEAKER) (test code = [facility], 153) 44591: [employer] Services Program Associate/Techni kelle ID = [id number] for Ba rrera, Kayla POCT-GLUCOSE [id number] 13:01:12 Test Item Value Reference Range Interpretation Comments POC-GLUCOSE METER 169 mg/dL 70-110 H : TESTED A T [facility] 6720 (BEAKER) (test code = [facility], 153) 49012: [employer] Services Program Associate/Techni kelle ID = [id number] for Ba rrera, Kayla POC-Glucose [id number] 08:45:07 Test Item Value Reference Range Interpretation Comments POC-Glucose Meter (test 134 mg/dL 70-110 H : TE STED AT [facility] code = 1538) [address] [place] [address] [facility], 770 30: University Services Program Associate/Techni kelle ID = [id number] for Nawaf Freitas Lab Interpretation (test Abnormal code = 34958-1) [facility] [id number] 08:45:07 Test Item Value Reference Range Interpretation Comments POC-GLUCOSE METER 134 mg/dL 70-110 H : TESTED A T [facility] 6720 (AKASH) (test code = [facility] [place] [facility], 1538) 39520: [employer] Services Program Associate/Techni kelle ID = [id number] for Kayla Emanuel RAD, CHEST, 1 VIEW, NON [id number] 08:36:00Reason for exam:->post-opShould this be performed at the bedside?->Yes [facility] 1955 Sex: FFINAL REPORT RAD, CHEST, 1 VIEW, NON DEPT INDICATION: post-op NAZ RISON: Prior day's exam TECHNIQUE: Portable frontal view of the chest. FINDINGS: Support Lines and Devices: Stable. Lungs and pleura: Unchanged airspace and pleural opacities. No pneumothorax identified. Heart and mediastinum: Mild to moderate cardiomegaly is present. Stable surgical changes. Additional findings: None. IMPRESSION: 1.No significant change from prior exam.2.Cardiomegaly with central pulmonary vascular congestion.3.Blunting of the right costophrenic sulcus, which may represent pleural thickening/scarring or small pleural effusion. Signed: Boogie Conteh MDReport Verified Date/Time: 07/02/2021 08:36:36 Reading Location: [facility] Reading Room Electronically signedby: BOOGIE CONTEH MD on 07/02/2021 08:36 AMBasic Metabolic [id number] 07:06:58 Test Item Value Reference Range Interpretation Comments Sodium (test code = 137 meq/L 577-935 8921-2) Potassium (test code = 3.9 meq/L 3.5-5.1 2823-3) Chloride (test code = 101 meq/L 98-107 2075-0) CO2 (test code = 28 meq/L 22-29 2028-9) BUN (test code = 23 mg/dL 7-21 H 3094-0) Creatinine (test code 3.16 mg/dL 0.57-1.25 H = 2160-0) Glucose (test code = 150 mg/dL 70-105 H 2345-7) Calcium (test code = 8.1 mg/dL 8.4-10.2 L 58097-9) EGFR (test code = 15 mL/min/1.73 [place] [address]-7) NOT ACCURATE CREATININE CLEARANCE IN PREDICTING GLOMERULAR FILTRATION RATE . ESTIMATED GFR I S NOT APPLICABLE FOR DIALYSIS PATIENTS. BRANDI (test code = BRANDI) [employer] Associate ID - PIAYA L Lab Interpretation Abnormal (test code = 78013-9) [facility] METABOLIC [id number] 07:06:58 Test Item Value Reference Range Interpretation Comments SODIUM (BEAKER) 137 meq/L 136-145 (test code = 381) POTASSIUM (BEAKER) 3.9 meq/L 3.5-5.1 (test code = 379) CHLORIDE (BEAKER) 101 meq/L 98-107 (test code = 382) CO2 (BEAKER) (test 28 meq/L 22-29 code = 355) BLOOD UREA NITROGEN 23 mg/dL 7-21 H (BEAKER) (test code = 354) CREATININE (BEAKER) 3.16 mg/dL 0.57-1.25 H (test code = 358) GLUCOSE RANDOM 150 mg/dL 70-105 H (BEAKER) (test code = 652) CALCIUM (BEAKER) 8.1 mg/dL 8.4-10.2 L (test code = 697) EGFR (BEAKER) (test 15 mL/min/1.73 ESTIMA LEVI GFR IS code = 1092) sq m NOT ACCURATE CREATININE CLEARANCE IN PREDICTING GLOMERULAR FILTRATION RATE . ESTIMATED GFR I S NOT APPLICABLE FOR DIALYSIS PATIEN TS. [employer] Services Program Associate ID - LIANA [id number] 07:06:52 Test Item Value Reference Range Interpretation Comments Magnesium (test code = 1.9 mg/dL 1.6-2.6 57144-7) BRANDI (test code = BRANDI) [employer] Services Program Associate ID - BURKEKEZIA L Lab Interpretation (test Normal code = 18994-0) [facility]2022-03-31 07:06:52 Test Item Value Reference Range Interpretation Comments Phosphorus (test code = 2.6 mg/dL 2.3-4.7 2777-1) BRANDI (test code = BRANDI) [employer] Program Associate ID - BURKEKEZIA L Lab Interpretation (test Normal code = 47396-3) [facility] CenterMAGN[facility]IUM2022-03-31 07:06:52 Test Item Value Reference Range Interpretation Comments MAGNESIUM (BEAKER) (test code = 1.9 mg/dL 1.6-2.6 627) [employer] Associate ID - LIANA [id number] 07:06:52 Test Item Value Reference Range Interpretation Comments PHOSPHORUS (BEAKER) (test code = 2.6 mg/dL 2.3-4.7 604) [employer] Associate ID - LIANA LCBC (Hemogram only)2021-07-02 05:56:49 Test Item Value Reference Range Interpretation Comments WBC (test code = 6690-2) 4.6 See_Comment [A utomated message] The system [employer] management generated this result transmitted ref erence range: 3.5 - 10 .5 K/L. The refe rence range was not u sed to interpret this result as normal/abnor mal. RBC (test code = 789-8) 2.50 See_Comment L [Au tomated message] The system [employer] management generated this result transmitted ref erence range: 3.93 - 5 .22 M/L. The refe rence range was not u sed to interpret this result as normal/abnor mal. MCHC (test code = 786-4) 31.9 See_Comment L [A utomated message] The system [employer] management generated this result transmitted ref erence range: 32.2 - 3 5.5 GM/DL. The refe rence range was not u sed to interpret this result as normal/abnor mal. Hematocrit (test code = 23.8 % 34.1-44.9 L 4544-3) MCV (test code = 787-2) 95.2 fL 79.4-94.8 H MCH (test code = 785-6) 30.4 pg 25.6-32.2 RDW (test code = 788-0) 20.5 % 11.7-14.4 H Platelets (test code = 81 See_Comment L [Aut omated message] 777-3) The system [employer] management generated this result transmitted ref erence range: 150 - 45 0 K/CU MM. The referen ce range was not u sed to interpret this result as normal/abnor mal. MPV (test code = 11.3 fL 9.4-12.3 94527-5) nRBC (test code = 413) 0 See_Comment [Aut omated message] The system [employer] management generated this result transmitted ref erence range: 0 - 0 /1 00 WBC. The refere nce range was not u sed to interpret this result as normal/abnor mal. Lab Interpretation (test Abnormal code = 21550-5) [facility] (HEMOGRAM ONLY)2021-07-02 05:56:49 Test Item Value Reference Range Interpretation Comments WHITE BLOOD CELL COUNT (BEAKER) 4.6 K/ L 3.5-10.5 (test code = 775) RED BLOOD CELL COUNT (BEAKER) 2.50 M/ L 3.93-5.22 L (test code = 761) HEMOGLOBIN (BEAKER) (test code = 7.6 GM/DL 11.2-15.7 L 410) HEMATOCRIT (BEAKER) (test code = 23.8 % 34.1-44.9 L 411) MEAN CORPUSCULAR VOLUME (BEAKER) 95.2 fL 79.4-94.8 H (test code = 753) MEAN CORPUSCULAR HEMOGLOBIN 30.4 pg 25.6-32.2 (BEAKER) (test code = 751) MEAN CORPUSCULAR HEMOGLOBIN CONC 31.9 GM/DL 32.2-35.5 L (BEAKER) (test code = 752) RED CELL DISTRIBUTION WIDTH 20.5 % 11.7-14.4 H (BEAKER) (test code = 412) PLATELET COUNT (BEAKER) (test code 81 K/CU MM 150-450 L = 756) MEAN PLATELET VOLUME (BEAKER) 11.3 fL 9.4-12.3 (test code = 754) NUCLEATED RED BLOOD CELLS (BEAKER) 0 /100 WBC 0-0 (test code = 413) POCT-GLUCOSE [id number] 21:57:03 Test Item Value Reference Range Interpretation Comments POC-GLUCOSE METER 179 mg/dL 70-110 H : TESTED A T [facility] 6720 (BEAKER) (test code = [facility], 1538) 15025: [employer] Services Program Associate/Techni kelle ID = [id number] for MACKENZIE GONZALEZ POCT-GLUCOSE [id number] 17:59:08 Test Item Value Reference Range Interpretation Comments POC-GLUCOSE METER 208 mg/dL 70-110 H : TESTED A T [facility] 6720 (BEAKER) (test code = [facility], 1538) 41905: [employer] Services Program Associate/Techni kelle ID = [id number] for Loco Hicks POCT-GLUCOSE [id number] 13:37:14 Test Item Value Reference Range Interpretation Comments POC-GLUCOSE METER 118 mg/dL 70-110 H : TESTED A T [facility] 6720 (BEAKER) (test code = [facility], 1538) 22146: [employer] Services Program Associate/Techni kelle ID = [id number] for Ra nicholasinMillie RAD, CHEST, 1 VIEW, NON [id number] 09:58:00Reason for exam:->post-opShould this be performed at the bedside?->Yes [facility] MER[facility]LLADITYA MONTOYA : 1955 Sex: FFINAL REPORT RAD, CHEST, 1 VIEW, NON DEPT INDICATION: post-op NAZ RISON: Prior day's exam TECHNIQUE: Portable frontal view of the chest. FINDINGS: Support Lines and Devices: Stable. Lungs and pleura: Bilateral airspace and interstitial opacities, worsened compared to prior exam, which may represent pneumonia or pulmonary edema. No pneumothorax identified. Heartand mediastinum: Stable contours. Stable surgical changes. Additional findings: None. IMPRESSION: Bilateral airspace and interstitial opacities, mildly worsened compared to prior exam, which may represent atelectasis, pneumonia or pulmonary edema. Signed: Boogie Conteh Verified Date/Time: 07/01/2021 09:58:13 Reading Location: [facility] Reading Room POC-Glucose [id number] 08:48:09 Test Item Value Reference Range Interpretation Comments POC-Glucose Meter (test 127 mg/dL 70-110 H : TE STED AT [facility] code = 1538) 6720 [facility], 770 30: [employer] Services Program Associate/Techni kelle ID = [id number] for Loco Chapman Lab Interpretation (test Abnormal code = 76231-7) [facility] [id number] 08:48:09 Test Item Value Reference Range Interpretation Comments POC-GLUCOSE METER 127 mg/dL 70-110 H : TESTED A T [facility] 6720 (BEAKER) (test code = [facility], 1538) 11444: [employer] Services Program Associate/Techni kelle ID = [id number] for Loco Hicks Basic Metabolic [id number] 06:34:36 Test Item Value Reference Range Interpretation Comments Sodium (test code = 134 meq/L 136-145 L 2951-2) Potassium (test code = 4.2 meq/L 3.5-5.1 2823-3) Chloride (test code = 99 meq/L 98-107 2075-0) CO2 (test code = 25 meq/L 22-29 2028-9) BUN (test code = 32 mg/dL 7-21 H 3094-0) Creatinine (test code 4.33 mg/dL 0.57-1.25 H = 2160-0) Glucose (test code = 167 mg/dL 70-105 H 2345-7) Calcium (test code = 8.2 mg/dL 8.4-10.2 L 84358-1) EGFR (test code = 10 mL/min/1.73 [place] [address]-8) NOT ACCURATE CREATININE CLEARANCE IN PREDICTING GLOMERULAR FILTRATION RATE . ESTIMATED GFR I S NOT APPLICABLE FOR DIALYSIS PATIENTS. BRANDI (test code = BRANDI) [employer] Program Associate ID - LIANA L Lab Interpretation Abnormal (test code = 37905-4) [facility] METABOLIC [id number] 06:34:36 Test Item Value Reference Range Interpretation Comments SODIUM (BEAKER) 134 meq/L 136-145 L (test code = 381) POTASSIUM (BEAKER) 4.2 meq/L 3.5-5.1 (test code = 379) CHLORIDE (BEAKER) 99 meq/L 98-107 (test code = 382) CO2 (BEAKER) (test 25 meq/L -29 code = 355) BLOOD UREA NITROGEN 32 mg/dL 7-21 H (BEAKER) (test code = 354) CREATININE (BEAKER) 4.33 mg/dL 0.57-1.25 H (test code = 358) GLUCOSE RANDOM 167 mg/dL 70-105 H (BEAKER) (test code = 652) CALCIUM (BEAKER) 8.2 mg/dL 8.4-10.2 L (test code = 697) EGFR (BEAKER) (test 10 mL/min/1.73 ESTIMA LEVI GFR IS code = 1092) sq m NOT ACCURATE CREATININE CLEARANCE IN PREDICTING GLOMERULAR FILTRATION RATE . ESTIMATED GFR I S NOT APPLICABLE FOR DIALYSIS PATIEN TS. [employer] Services Program Associate ID - LIANA [id number] 06:26:43 Test Item Value Reference Range Interpretation Comments Magnesium (test code = 2.1 mg/dL 1.6-2.6 12875-0) BRANDI (test code = BRANDI) [employer] Associate ID - LIANA L Lab Interpretation (test Normal code = 14902-3) [facility]2022-03-30 06:26:43 Test Item Value Reference Range Interpretation Comments Phosphorus (test code = 3.6 mg/dL 2.3-4.7 2777-1) BRANDI (test code = BRANDI) [employer] Program Associate ID - LIANA L Lab Interpretation (test Normal code = 15620-9) [facility]2022-03-30 06:26:43 Test Item Value Reference Range Interpretation Comments MAGNESIUM (BEAKER) (test code = 2.1 mg/dL 1.6-2.6 627) [employer] Associate ID - LIANA [id number] 06:26:43 Test Item Value Reference Range Interpretation Comments PHOSPHORUS (BEAKER) (test code = 3.6 mg/dL 2.3-4.7 604) [employer] Associate ID - LIANA LCBC (Hemogram only)2021-07-01 05:41:20 Test Item Value Reference Range Interpretation Comments WBC (test code = 6690-2) 4.8 See_Comment [A utomated message] The system [employer] management generated this result transmitted ref erence range: 3.5 - 10 .5 K/L. The refe rence range was not u sed to interpret this result as normal/abnor mal. RBC (test code = 789-8) 2.60 See_Comment L [Au tomated message] The system [employer] management generated this result transmitted ref erence range: 3.93 - 5 .22 M/L. The refe rence range was not u sed to interpret this result as normal/abnor mal. MCHC (test code = 786-4) 32.1 See_Comment L [A utomated message] The system [employer] management generated this result transmitted ref erence range: 32.2 - 3 5.5 GM/DL. The refe rence range was not u sed to interpret this result as normal/abnor mal. Hematocrit (test code = 24.6 % 34.1-44.9 L 4544-3) MCV (test code = 787-2) 94.6 fL 79.4-94.8 MCH (test code = 785-6) 30.4 pg 25.6-32.2 RDW (test code = 788-0) 20.0 % 11.7-14.4 H Platelets (test code = 75 See_Comment L [Aut omated message] 777-3) The system [employer] management generated this result transmitted ref erence range: 150 - 45 0 K/CU MM. The referen ce range was not u sed to interpret this result as normal/abnor mal. MPV (test code = 11.3 fL 9.4-12.3 58657-3) nRBC (test code = 413) 0 See_Comment [Aut omated message] The system [employer] management generated this result transmitted ref erence range: 0 - 0 /1 00 WBC. The refere nce range was not u sed to interpret this result as normal/abnor mal. Lab Interpretation (test Abnormal code = 78375-0) [facility] (HEMOGRAM ONLY)2021-07-01 05:41:20 Test Item Value Reference Range Interpretation Comments WHITE BLOOD CELL COUNT (BEAKER) 4.8 K/ L 3.5-10.5 (test code = 775) RED BLOOD CELL COUNT (BEAKER) 2.60 M/ L 3.93-5.22 L (test code = 761) HEMOGLOBIN (BEAKER) (test code = 7.9 GM/DL 11.2-15.7 L 410) HEMATOCRIT (BEAKER) (test code = 24.6 % 34.1-44.9 L 411) MEAN CORPUSCULAR VOLUME (BEAKER) 94.6 fL 79.4-94.8 (test code = 753) MEAN CORPUSCULAR HEMOGLOBIN 30.4 pg 25.6-32.2 (BEAKER) (test code = 751) MEAN CORPUSCULAR HEMOGLOBIN CONC 32.1 GM/DL 32.2-35.5 L (BEAKER) (test code = 752) RED CELL DISTRIBUTION WIDTH 20.0 % 11.7-14.4 H (BEAKER) (test code = 412) PLATELET COUNT (BEAKER) (test code 75 K/CU MM 150-450 L = 756) MEAN PLATELET VOLUME (BEAKER) 11.3 fL 9.4-12.3 (test code = 754) NUCLEATED RED BLOOD CELLS (BEAKER) 0 /100 WBC 0-0 (test code = 413) POCT-GLUCOSE [id number] 21:14:47 Test Item Value Reference Range Interpretation Comments POC-GLUCOSE METER 159 mg/dL 70-110 H : TESTED A T [facility] 6720 (AKASH) (test code = [facility] [place] [facility], 1538) 14563: [employer] Program Associate/Techni kelle ID = [id number] for MACKENZIE GONZALEZ RAD, ABDOMEN/KUB, 1 VIEW [id number] 18:59:00Reason for exam:- >constipationShould this be performed at the bedside?->Yes [facility] 1955 Sex: FFINAL REPORT Exam: RAD, ABDOMEN/KUB, 1 VIEW APDate: 06/30/2021 6:58PM Indication:constipation COMPARISON: 06/24/2021 DISCUSSION/IMPRESSION: The lower thorax is within normal limits. Nonspecific bowel gas pattern. No evidence of free air within the limitations of this study. Signed: Kb Gregorio Verified Date/Time: 06/30/2021 18:59:30 Reading Location: [address] Transitional Reading Room POCT-GLUCOSE [id number] 17:39:03 Test Item Value Reference Range Interpretation Comments POC-GLUCOSE METER 204 mg/dL 70-110 H : TESTED A T [facility] 6720 (BEAKER) (test code = [facility] [place] [facility], 1538) 26006: [employer] Program Associate/Techni kelle ID = [id number] for OR JAMIR EDMUNDO POCT-GLUCOSE [id number] 12:35:41 Test Item Value Reference Range Interpretation Comments POC-GLUCOSE METER 136 mg/dL 70-110 H : TESTED A T [facility] 6720 (AKASH) (test code = [facility] [place], 1538) 41138: [employer] Services Program Associate/Techni kelle ID = [id number] for OR JAMIR EDMUNDO RAD, CHEST, 1 VIEW, NON [id number] 09:21:00Reason for exam:->post-opShould this be performed at the bedside?->Yes [facility] 1955 Sex: FFINAL REPORT RAD, CHEST, 1 VIEW, NON DEPT INDICATION: post-op NAZ RISON: Prior day's exam TECHNIQUE: Portable frontal view of the chest. FINDINGS: Support Lines and Devices: Stable. Lungs and pleura: No focal consolidation. No pneumothorax identified. Heart and mediastinum: Mild cardiomegaly is present. Stable surgical changes. Additional findings: None. IMPRESSION: No significant change from prior exam. Signed: Boogie Conteh Verified Date/Time: 06/30/2021 09:21:42 Reading Location: [facility] Rad[facility] Reading Room POCT-GLUCOSE [id number] 08:26:49 Test Item Value Reference Range Interpretation Comments POC-GLUCOSE METER 132 mg/dL 70-110 H : TESTED A T [facility] 6720 (AKASH) (test code = [facility] [place], 1538) 52328: [employer] Program Associate/Techni kelle ID = [id number] for OR PHEY, EDMUNDO BASIC METABOLIC [id number] 05:31:46 Test Item Value Reference Range Interpretation Comments SODIUM (BEAKER) 136 meq/L 136-145 (test code = 381) POTASSIUM (BEAKER) 4.0 meq/L 3.5-5.1 (test code = 379) CHLORIDE (BEAKER) 100 meq/L 98-107 (test code = 382) CO2 (BEAKER) (test 28 meq/L 22-29 code = 355) BLOOD UREA NITROGEN 20 mg/dL 7-21 (BEAKER) (test code = 354) CREATININE (BEAKER) 3.28 mg/dL 0.57-1.25 H (test code = 358) GLUCOSE RANDOM 141 mg/dL 70-105 H (BEAKER) (test code = 652) CALCIUM (BEAKER) 8.0 mg/dL 8.4-10.2 L (test code = 697) EGFR (BEAKER) (test 14 mL/min/1.73 ESTIMA LEVI GFR IS code = 1092) sq m NOT ACCURATE CREATININE CLEARANCE IN PREDICTING GLOMERULAR FILTRATION RATE . ESTIMATED GFR I S NOT APPLICABLE FOR DIALYSIS PATIEN TS. [employer] ID - LIANA [id number] 05:28:01 Test Item Value Reference Range Interpretation Comments MAGNESIUM (BEAKER) (test code = 1.8 mg/dL 1.6-2.6 627) [employer] ID - LIANA [id number] 05:28:01 Test Item Value Reference Range Interpretation Comments PHOSPHORUS (BEAKER) (test code = 2.6 mg/dL 2.3-4.7 604) [employer] ID - LIANA [facility]BC (HEMOGRAM ONLY)2021-06-30 05:03:10 Test Item Value Reference Range Interpretation Comments WHITE BLOOD CELL COUNT (BEAKER) 4.5 K/ L 3.5-10.5 (test code = 775) RED BLOOD CELL COUNT (BEAKER) 2.54 M/ L 3.93-5.22 L (test code = 761) HEMOGLOBIN (BEAKER) (test code = 7.6 GM/DL 11.2-15.7 L 410) HEMATOCRIT (BEAKER) (test code = 23.8 % 34.1-44.9 L 411) MEAN CORPUSCULAR VOLUME (BEAKER) 93.7 fL 79.4-94.8 (test code = 753) MEAN CORPUSCULAR HEMOGLOBIN 29.9 pg 25.6-32.2 (BEAKER) (test code = 751) MEAN CORPUSCULAR HEMOGLOBIN CONC 31.9 GM/DL 32.2-35.5 L (BEAKER) (test code = 752) RED CELL DISTRIBUTION WIDTH 19.5 % 11.7-14.4 H (BEAKER) (test code = 412) PLATELET COUNT (BEAKER) (test code 56 K/CU MM 150-450 L = 756) MEAN PLATELET VOLUME (BEAKER) 11.1 fL 9.4-12.3 (test code = 754) NUCLEATED RED BLOOD CELLS (BEAKER) 0 /100 WBC 0-0 (test code = 413) Prepare Leuko-Red [id number] 23:54:00 Test Item Value Reference Range Interpretation Comments CROSSMATCH (test code = 2264) COMPATIBLE Unit ABO (test code = O Pos 6483739) UNIT NUMBER (test code = [id number] 934-0) Status (test code = 5579847) [facility] Blood Bank Product (test code RED BLOOD CELLS = 2263) PRODUCT CODE (test code = [id number] 933-2) [facility] [id number] 23:54:00 Test Item Value Reference Range Interpretation Comments CROSSMATCH (test code = 2264) COMPATIBLE Unit ABO (test code = O Pos 4597717) UNIT NUMBER (test code = [id number] 934-0) Status (test code = 7347871) [facility] Blood Bank Product (test code RED BLOOD CELLS = 2263) PRODUCT CODE (test code = [id number] 933-2) [facility]Red [id number] 23:54:00 Test Item Value Reference Range Interpretation Comments CROSSMATCH (test code = 2264) COMPATIBLE Unit ABO (test code = O Pos 0814873) UNIT NUMBER (test code = [id number] 934-0) Status (test code = 1025157) TX_TIMEINCHART Blood Bank Product (test code RED BLOOD CELLS = 2263) PRODUCT CODE (test code = F9582I19 933-2) [facility]Red [id number] 23:54:00 Test Item Value Reference Range Interpretation Comments CROSSMATCH (test code = 2264) COMPATIBLE Unit ABO (test code = O Pos 8463765) UNIT NUMBER (test code = [id number] 934-0) Status (test code = 3862153) [facility] Blood Bank Product (test code RED BLOOD CELLS = 2263) PRODUCT CODE (test code = Q9964F91 933-2) [facility] Leuko-Red [id number] 23:54:00 Test Item Value Reference Range Interpretation Comments CROSSMATCH (test code = 2264) COMPATIBLE Unit ABO (test code = O Pos 2252772) UNIT NUMBER (test code = [id number] 934-0) Status (test code = 9091557) [facility] Blood Bank Product (test code RED BLOOD CELLS = 2263) PRODUCT CODE (test code = C4428K89 933-2) [facility] [id number] 22:04:06 Test Item Value Reference Range Interpretation Comments POC-GLUCOSE METER 149 mg/dL 70-110 H : TESTED A T [facility] 6720 (BEAKER) (test code = [facility], 153) 01680: [employer] Associate/Techni kelle ID = [id number] for [place], Ti pastora POCT-GLUCOSE [id number] 17:55:17 Test Item Value Reference Range Interpretation Comments POC-GLUCOSE METER 150 mg/dL 70-110 H : TESTED A T [facility] 6720 (BEAKER) (test code = [facility], 1538) 13759: [employer] Associate/Techni kelle ID = [id number] for OR PHEY, EDMUNDO POCT-GLUCOSE [id number] 15:31:47 Test Item Value Reference Range Interpretation Comments POC-GLUCOSE METER 155 mg/dL 70-110 H : TESTED A T [facility] 6720 (BEAKER) (test code = [facility], 1538) 10191: [employer] Associate/Techni kelle ID = [id number] for OR PHEY, EDMUNDO RAD, CHEST, 1 VIEW, NON [id number] 10:41:00Reason for exam:->post-opShould this be performed at the bedside?->Yes [facility] 1955 Sex: FFINAL REPORT RAD, CHEST, 1 VIEW, NON DEPT INDICATION: post-op NAZ RISON: Prior day's exam TECHNIQUE: Portable frontal view of the chest. FINDINGS: Support Lines and Devices: Stable. Lungs and pleura: Mild interstitial opacities bilaterally, which may represent pulmonary edema or viral pneumonia. No pneumothorax identified. Heart and mediastinum: Stable contours. Stable surgical changes. Additional findings: None. IMPRESSION: Mild interstitial opacities bilaterally, which may represent pulmonary edema or viral pneumonia. Signed: Boogie Conteh Verified Date/Time: 06/29/2021 10:41:18 Reading Location: [facility] Reading Room Electronical ly signed by: BOOGIE CONTEH MD on 06/29/2021 10:41 AMPOC-Glucose meter 2021-06-29 08:51:04 Test Item Value Reference Range Interpretation Comments POC-Glucose Meter (test 208 mg/dL 70-110 H : TE STED AT [facility] code = 1538) 67[address] [facility] [place], [address]: [employer] Associate/Techni kelle ID = [id number] for EDMUNDO BARRAGAN Lab Interpretation (test Abnormal code = 46744-7) [facility] [id number] 08:51:04 Test Item Value Reference Range Interpretation Comments POC-Glucose Meter (test 208 mg/dL 70-110 H : TE STED AT [facility] code = 1538) [address] [place], [address]: [employer] Associate/Techni kelle ID = [id number] for EDMUNDO BARRAGAN Lab Interpretation (test Abnormal code = 44834-1) [facility] Center[facility] [id number] 08:51:04 Test Item Value Reference Range Interpretation Comments POC-GLUCOSE METER 208 mg/dL 70-110 H : TESTED A T [facility] 6720 (BEAKER) (test code = YUDY V[facility], 1538) 28996: [employer] Associate/Techni kelle ID = [id number] for EDMUNDO JACKSON Basic Metabolic [id number] 06:07:27 Test Item Value Reference Range Interpretation Comments Sodium (test code = 133 meq/L 136-145 L 2951-2) Potassium (test code = 4.3 meq/L 3.5-5.1 2823-3) Chloride (test code = 99 meq/L 98-107 2075-0) CO2 (test code = 24 meq/L -2027-9) BUN (test code = 37 mg/dL 7-21 H 3094-0) Creatinine (test code 4.75 mg/dL 0.57-1.25 H = 2160-0) Glucose (test code = 257 mg/dL 70-105 H 2345-7) Calcium (test code = 8.0 mg/dL 8.4-10.2 L 16557-6) EGFR (test code = 9 mL/min/1.73 [place] [address]-7) NOT ACCURATE CREATININE CLEARANCE IN PREDICTING GLOMERULAR FILTRATION RATE . ESTIMATED GFR I S NOT APPLICABLE FOR DIALYSIS PATIENTS. BRANDI (test code = BRANDI) [employer] ID - HIEN M Lab Interpretation Abnormal (test code = 76544-0) [facility] Center[facility] Metabolic [id number] 06:07:27 Test Item Value Reference Range Interpretation Comments Sodium (test code = 133 meq/L 136-145 L 2951-2) Potassium (test code = 4.3 meq/L 3.5-5.1 2823-3) Chloride (test code = 99 meq/L 98-107 2075-0) CO2 (test code = 24 meq/L -2027-9) BUN (test code = 37 mg/dL 7-21 H 3094-0) Creatinine (test code 4.75 mg/dL 0.57-1.25 H = 2160-0) Glucose (test code = 257 mg/dL 70-105 H 2345-7) Calcium (test code = 8.0 mg/dL 8.4-10.2 L 87801-0) EGFR (test code = 9 mL/min/1.[place] [address]-1) NOT ACCURATE CREATININE CLEARANCE IN PREDICTING GLOMERULAR FILTRATION RATE . ESTIMATED GFR I S NOT APPLICABLE FOR DIALYSIS PATIENTS. BRANDI (test code = BRANDI) [employer] ID - HIEN M Lab Interpretation Abnormal (test code = 50434-5) [facility] Metabolic [id number] 06:07:27 Test Item Value Reference Range Interpretation Comments Sodium (test code = 133 meq/L 136-145 L 2951-2) Potassium (test code = 4.3 meq/L 3.5-5.1 2823-3) Chloride (test code = 99 meq/L 98-107 5-0) CO2 (test code = 24 meq/L 22-29 8-9) BUN (test code = 37 mg/dL 7-21 H 3094-0) Creatinine (test code 4.75 mg/dL 0.57-1.25 H = 2160-0) Glucose (test code = 257 mg/dL 70-105 H 2345-7) Calcium (test code = 8.0 mg/dL 8.4-10.2 L 98370-1) EGFR (test code = 9 mL/min/1.[place] [address]-2) NOT ACCURATE CREATININE CLEARANCE IN PREDICTING GLOMERULAR FILTRATION RATE . ESTIMATED GFR I S NOT APPLICABLE FOR DIALYSIS PATIENTS. BRANDI (test code = BRANDI) [employer] ID - HIEN M Lab Interpretation Abnormal (test code = 90924-2) [facility] METABOLIC [id number] 06:07:27 Test Item Value Reference Range Interpretation Comments SODIUM (BEAKER) 133 meq/L 136-145 L (test code = 381) POTASSIUM (BEAKER) 4.3 meq/L 3.5-5.1 (test code = 379) CHLORIDE (BEAKER) 99 meq/L 98-107 (test code = 382) CO2 (BEAKER) (test 24 meq/L 22-29 code = 355) BLOOD UREA NITROGEN 37 mg/dL 7-21 H (BEAKER) (test code = 354) CREATININE (BEAKER) 4.75 mg/dL 0.57-1.25 H (test code = 358) GLUCOSE RANDOM 257 mg/dL 70-105 H (BEAKER) (test code = 652) CALCIUM (BEAKER) 8.0 mg/dL 8.4-10.2 L (test code = 697) EGFR (BEAKER) (test 9 mL/min/1.73 ESTIMAT ED GFR IS code = 1092) sq m NOT ACCURATE CREATININE CLEARANCE IN PREDICTING GLOMERULAR FILTRATION RATE . ESTIMATED GFR I S NOT APPLICABLE FOR DIALYSIS PATIEN TS. [employer] ID - HIEN [id number] 06:05:44 Test Item Value Reference Range Interpretation Comments Phosphorus (test code = 2.5 mg/dL 2.3-4.7 2777-1) BRANDI (test code = BRANDI) [employer] ID - HIEN Lab Interpretation (test Normal code = 15184-6) [facility]2022-03-28 06:05:44 Test Item Value Reference Range Interpretation Comments Phosphorus (test code = 2.5 mg/dL 2.3-4.7 2777-1) BRANDI (test code = BRANDI) [employer] Associate ID - [facility] Lab Interpretation (test Normal code = 28455-4) [facility]2022-03-28 06:05:44 Test Item Value Reference Range Interpretation Comments Phosphorus (test code = 2.5 mg/dL 2.3-4.7 2777-1) BRANDI (test code = BRANDI) [employer] Associate ID - HIEN Lab Interpretation (test Normal code = 78445-7) [facility]OS[facility]US2022-03-28 06:05:44 Test Item Value Reference Range Interpretation Comments PHOSPHORUS (BEAKER) (test code = 2.5 mg/dL 2.3-4.7 604) [employer] ID - HIEN [id number] 06:05:43 Test Item Value Reference Range Interpretation Comments Magnesium (test code = 2.2 mg/dL 1.6-2.6 10107-7) BRANDI (test code = BRANDI) [employer] ID - HIEN M Lab Interpretation (test Normal code = 68619-5) [facility]2022-03-28 06:05:43 Test Item Value Reference Range Interpretation Comments Magnesium (test code = 2.2 mg/dL 1.6-2.6 53397-5) BRANDI (test code = BRANDI) [employer] ID - HIEN M Lab Interpretation (test Normal code = 23421-8) [facility]2022-03-28 06:05:43 Test Item Value Reference Range Interpretation Comments Magnesium (test code = 2.2 mg/dL 1.6-2.6 56173-7) BRANDI (test code = BRANDI) [employer] ID - HIEN M Lab Interpretation (test Normal code = 92559-0) [facility]2022-03-28 06:05:43 Test Item Value Reference Range Interpretation Comments MAGNESIUM (BEAKER) (test code = 2.2 mg/dL 1.6-2.6 627) [employer] Associate ID - HIEN [facility] (Hemogram only)2021-06-29 05:32:19 Test Item Value Reference Range Interpretation Comments WBC (test code = 6690-2) 4.7 See_Comment [A utomated message] The system [employer] generated this result transmitted ref erence range: 3.5 - 10 .5 K/L. The refe rence range was not u sed to interpret this result as normal/abnor mal. RBC (test code = 789-8) 2.94 See_Comment L [Au tomated message] The system [employer] generated this result transmitted ref erence range: 3.93 - 5 .22 M/L. The refe rence range was not u sed to interpret this result as normal/abnor mal. MCHC (test code = 786-4) 31.8 See_Comment L [A utomated message] The system [employer] generated this result transmitted ref erence range: 32.2 - 3 5.5 GM/DL. The refe rence range was not u sed to interpret this result as normal/abnor mal. Hematocrit (test code = 27.7 % 34.1-44.9 L 4544-3) MCV (test code = 787-2) 94.2 fL 79.4-94.8 MCH (test code = 785-6) 29.9 pg 25.6-32.2 RDW (test code = 788-0) 18.7 % 11.7-14.4 H Platelets (test code = 65 See_Comment L [Aut omated message] 777-3) The system [employer] generated this result transmitted ref erence range: 150 - 45 0 K/CU MM. The referen ce range was not u sed to interpret this result as normal/abnor mal. MPV (test code = 12.2 fL 9.4-12.3 18535-5) nRBC (test code = 413) 0 See_Comment [Aut omated message] The system [employer] generated this result transmitted ref erence range: 0 - 0 /1 00 WBC. The refere nce range was not u sed to interpret this result as normal/abnor mal. Lab Interpretation (test Abnormal code = 31376-1) [facility] (Hemogram only)2021-06-29 05:32:19 Test Item Value Reference Range Interpretation Comments WBC (test code = 6690-2) 4.7 See_Comment [A utomated message] The system [employer] generated this result transmitted ref erence range: 3.5 - 10 .5 K/L. The refe rence range was not u sed to interpret this result as normal/abnor mal. RBC (test code = 789-8) 2.94 See_Comment L [Au tomated message] The system [employer] generated this result transmitted ref erence range: 3.93 - 5 .22 M/L. The refe rence range was not u sed to interpret this result as normal/abnor mal. MCHC (test code = 786-4) 31.8 See_Comment L [A utomated message] The system [employer] generated this result transmitted ref erence range: 32.2 - 3 5.5 GM/DL. The refe rence range was not u sed to interpret this result as normal/abnor mal. Hematocrit (test code = 27.7 % 34.1-44.9 L 4544-3) MCV (test code = 787-2) 94.2 fL 79.4-94.8 MCH (test code = 785-6) 29.9 pg 25.6-32.2 RDW (test code = 788-0) 18.7 % 11.7-14.4 H Platelets (test code = 65 See_Comment L [Aut omated message] 777-3) The system [employer] generated this result transmitted ref erence range: 150 - 45 0 K/CU MM. The referen ce range was not u sed to interpret this result as normal/abnor mal. MPV (test code = 12.2 fL 9.4-12.3 06318-0) nRBC (test code = 413) 0 See_Comment [Aut omated message] The system [employer] generated this result transmitted ref erence range: 0 - 0 /1 00 WBC. The refere nce range was not u sed to interpret this result as normal/abnor mal. Lab Interpretation (test Abnormal code = 11393-7) [facility]2021-06-29 05:32:19 Test Item Value Reference Range Interpretation Comments WBC (test code = 6690-2) 4.7 See_Comment [A utomated message] The system [employer] generated this result transmitted ref erence range: 3.5 - 10 .5 K/L. The refe rence range was not u sed to interpret this result as normal/abnor mal. RBC (test code = 789-8) 2.94 See_Comment L [Au tomated message] The system [employer] generated this result transmitted ref erence range: 3.93 - 5 .22 M/L. The refe rence range was not u sed to interpret this result as normal/abnor mal. MCHC (test code = 786-4) 31.8 See_Comment L [A utomated message] The system [employer] generated this result transmitted ref erence range: 32.2 - 3 5.5 GM/DL. The refe rence range was not u sed to interpret this result as normal/abnor mal. Hematocrit (test code = 27.7 % 34.1-44.9 L 4544-3) MCV (test code = 787-2) 94.2 fL 79.4-94.8 MCH (test code = 785-6) 29.9 pg 25.6-32.2 RDW (test code = 788-0) 18.7 % 11.7-14.4 H Platelets (test code = 65 See_Comment L [Aut omated message] 777-3) The system [employer] generated this result transmitted ref erence range: 150 - 45 0 K/CU MM. The referen ce range was not u sed to interpret this result as normal/abnor mal. MPV (test code = 12.2 fL 9.4-12.3 18337-1) nRBC (test code = 413) 0 See_Comment [Aut omated message] The system [employer] generated this result transmitted ref erence range: 0 - 0 /1 00 WBC. The refere nce range was not u sed to interpret this result as normal/abnor mal. Lab Interpretation (test Abnormal code = 64046-0) [facility] (HEMOGRAM ONLY)2021-06-29 05:32:19 Test Item Value Reference Range Interpretation Comments WHITE BLOOD CELL COUNT (BEAKER) 4.7 K/ L 3.5-10.5 (test code = 775) RED BLOOD CELL COUNT (BEAKER) 2.94 M/ L 3.93-5.22 L (test code = 761) HEMOGLOBIN (BEAKER) (test code = 8.8 GM/DL 11.2-15.7 L 410) HEMATOCRIT (BEAKER) (test code = 27.7 % 34.1-44.9 L 411) MEAN CORPUSCULAR VOLUME (BEAKER) 94.2 fL 79.4-94.8 (test code = 753) MEAN CORPUSCULAR HEMOGLOBIN 29.9 pg 25.6-32.2 (BEAKER) (test code = 751) MEAN CORPUSCULAR HEMOGLOBIN CONC 31.8 GM/DL 32.2-35.5 L (BEAKER) (test code = 752) RED CELL DISTRIBUTION WIDTH 18.7 % 11.7-14.4 H (BEAKER) (test code = 412) PLATELET COUNT (BEAKER) (test code 65 K/CU MM 150-450 L = 756) MEAN PLATELET VOLUME (BEAKER) 12.2 fL 9.4-12.3 (test code = 754) NUCLEATED RED BLOOD CELLS (BEAKER) 0 /100 WBC 0-0 (test code = 413) POC-Glucose [id number] 19:54:37 Test Item Value Reference Range Interpretation Comments POC-Glucose Meter (test 188 mg/dL 70-110 H : TE STED AT [facility] code = 1538) [address] [facility], 770 30: [employer] Associate/Techni kelle ID = [id number] for [place] Lab Interpretation (test Abnormal code = 68826-9) [facility] [id number] 19:54:37 Test Item Value Reference Range Interpretation Comments POC-GLUCOSE METER 188 mg/dL 70-110 H : TESTED A T [facility] 6720 ([facility]) (test code = [facility], 1538) [address]: [employer] Associate/Techni kelle ID = [id number] for RAMON FLORES POCT-GLUCOSE [id number] 17:33:41 Test Item Value Reference Range Interpretation Comments POC-GLUCOSE METER 166 mg/dL 70-110 H : TESTED A T [facility] 6720 ([facility]) (test code = [facility], 1538) 478[address]: [employer] Associate/Techni kelle ID = [id number] for Kayla Emanuel CBC with platelet count + automated [id number] 15:34:06 Test Item Value Reference Range Interpretation Comments WBC (test code = 6690-2) 4.6 See_Comment [A utomated message] The system [employer] generated this result transmitted ref erence range: 3.5 - 10 .5 K/L. The refe rence range was not u sed to interpret this result as normal/abnor mal. RBC (test code = 789-8) 2.86 See_Comment L [Au tomated message] The system [employer] generated this result transmitted ref erence range: 3.93 - 5 .22 M/L. The refe rence range was not u sed to interpret this result as normal/abnor mal. MCHC (test code = 786-4) 32.1 See_Comment L [A utomated message] The system [employer] generated this result transmitted ref erence range: 32.2 - 3 5.5 GM/DL. The refe rence range was not u sed to interpret this result as normal/abnor mal. Hematocrit (test code = 26.5 % 34.1-44.9 L 4544-3) MCV (test code = 787-2) 92.7 fL 79.4-94.8 MCH (test code = 785-6) 29.7 pg 25.6-32.2 RDW (test code = 788-0) 18.5 % 11.7-14.4 H Platelets (test code = 57 See_Comment L [Aut omated message] 777-3) The system [employer] generated this result transmitted ref erence range: 150 - 45 0 K/CU MM. The referen ce range was not u sed to interpret this result as normal/abnor mal. MPV (test code = 11.0 fL 9.4-12.3 25357-5) nRBC (test code = 413) 0 See_Comment [Aut omated message] The system [employer] generated this result transmitted ref erence range: 0 - 0 /1 00 WBC. The refere nce range was not u sed to interpret this result as normal/abnor mal. % Neutros (test code = 64 % 429) % Lymphs (test code = 16 % 430) % Monos (test code = 13 % 431) % Eos (test code = 432) 5 % % Baso (test code = 437) 1 % # Neutros (test code = 2.99 See_Comment [Aut omated message] 670) The system [employer] generated this result transmitted ref erence range: 1.56 - 6 .13 K/L. The refe rence range was not u sed to interpret this result as normal/abnor mal. # Lymphs (test code = 0.73 See_Comment L [Auto mated message] 414) The system [employer] generated this result transmitted ref erence range: 1.18 - 3 .74 K/L. The refe rence range was not u sed to interpret this result as normal/abnor mal. # Monos (test code = 0.62 See_Comment H [Autom ated message] 415) The system [employer] generated this result transmitted ref erence range: 0.24 - 0 .36 K/L. The refe rence range was not u sed to interpret this result as normal/abnor mal. # Eos (test code = 416) 0.24 See_Comment [Au tomated message] The system [employer] generated this result transmitted ref erence range: 0.04 - 0 .36 K/L. The refe rence range was not u sed to interpret this result as normal/abnor mal. # Baso (test code = 417) 0.04 See_Comment [A utomated message] The system [employer] generated this result transmitted ref erence range: 0.01 - 0 .08 K/L. The refe rence range was not u sed to interpret this result as normal/abnor mal. Immature 0 % 0-1 Granulocytes-Relative (test code = 2801) Lab Interpretation (test Abnormal code = 14205-9) [facility] with platelet count + automated [id number] 15:34:06 Test Item Value Reference Range Interpretation Comments WBC (test code = 6690-2) 4.6 See_Comment [A utomated message] The system [employer] generated this result transmitted ref erence range: 3.5 - 10 .5 K/L. The refe rence range was not u sed to interpret this result as normal/abnor mal. RBC (test code = 789-8) 2.86 See_Comment L [Au tomated message] The system [employer] generated this result transmitted ref erence range: 3.93 - 5 .22 M/L. The refe rence range was not u sed to interpret this result as normal/abnor mal. MCHC (test code = 786-4) 32.1 See_Comment L [A utomated message] The system [employer] generated this result transmitted ref erence range: 32.2 - 3 5.5 GM/DL. The refe rence range was not u sed to interpret this result as normal/abnor mal. Hematocrit (test code = 26.5 % 34.1-44.9 L 4544-3) MCV (test code = 787-2) 92.7 fL 79.4-94.8 MCH (test code = 785-6) 29.7 pg 25.6-32.2 RDW (test code = 788-0) 18.5 % 11.7-14.4 H Platelets (test code = 57 See_Comment L [Aut omated message] 777-3) The system [employer] generated this result transmitted ref erence range: 150 - 45 0 K/CU MM. The referen ce range was not u sed to interpret this result as normal/abnor mal. MPV (test code = 11.0 fL 9.4-12.3 79931-7) nRBC (test code = 413) 0 See_Comment [Aut omated message] The system [employer] generated this result transmitted ref erence range: 0 - 0 /1 00 WBC. The refere nce range was not u sed to interpret this result as normal/abnor mal. % Neutros (test code = 64 % 429) % Lymphs (test code = 16 % 430) % Monos (test code = 13 % 431) % Eos (test code = 432) 5 % % Baso (test code = 437) 1 % # Neutros (test code = 2.99 See_Comment [Aut omated message] 670) The system [employer] generated this result transmitted ref erence range: 1.56 - 6 .13 K/L. The refe rence range was not u sed to interpret this result as normal/abnor mal. # Lymphs (test code = 0.73 See_Comment L [Auto mated message] 414) The system [employer] generated this result transmitted ref erence range: 1.18 - 3 .74 K/L. The refe rence range was not u sed to interpret this result as normal/abnor mal. # Monos (test code = 0.62 See_Comment H [Autom ated message] 415) The system [employer] generated this result transmitted ref erence range: 0.24 - 0 .36 K/L. The refe rence range was not u sed to interpret this result as normal/abnor mal. # Eos (test code = 416) 0.24 See_Comment [Au tomated message] The system [employer] generated this result transmitted ref erence range: 0.04 - 0 .36 K/L. The refe rence range was not u sed to interpret this result as normal/abnor mal. # Baso (test code = 417) 0.04 See_Comment [A utomated message] The system [employer] generated this result transmitted ref erence range: 0.01 - 0 .08 K/L. The refe rence range was not u sed to interpret this result as normal/abnor mal. Immature 0 % 0-1 Granulocytes-Relative (test code = 2801) Lab Interpretation (test Abnormal code = 44078-0) [facility] with platelet count + automated [id number] 15:34:06 Test Item Value Reference Range Interpretation Comments WBC (test code = 6690-2) 4.6 See_Comment [A utomated message] The system [employer] generated this result transmitted ref erence range: 3.5 - 10 .5 K/L. The refe rence range was not u sed to interpret this result as normal/abnor mal. RBC (test code = 789-8) 2.86 See_Comment L [Au tomated message] The system [employer] generated this result transmitted ref erence range: 3.93 - 5 .22 M/L. The refe rence range was not u sed to interpret this result as normal/abnor mal. MCHC (test code = 786-4) 32.1 See_Comment L [A utomated message] The system [employer] generated this result transmitted ref erence range: 32.2 - 3 5.5 GM/DL. The refe rence range was not u sed to interpret this result as normal/abnor mal. Hematocrit (test code = 26.5 % 34.1-44.9 L 4544-3) MCV (test code = 787-2) 92.7 fL 79.4-94.8 MCH (test code = 785-6) 29.7 pg 25.6-32.2 RDW (test code = 788-0) 18.5 % 11.7-14.4 H Platelets (test code = 57 See_Comment L [Aut omated message] 777-3) The system [employer] generated this result transmitted ref erence range: 150 - 45 0 K/CU MM. The referen ce range was not u sed to interpret this result as normal/abnor mal. MPV (test code = 11.0 fL 9.4-12.3 50805-9) nRBC (test code = 413) 0 See_Comment [Aut omated message] The system [employer] generated this result transmitted ref erence range: 0 - 0 /1 00 WBC. The refere nce range was not u sed to interpret this result as normal/abnor mal. % Neutros (test code = 64 % 429) % Lymphs (test code = 16 % 430) % Monos (test code = 13 % 431) % Eos (test code = 432) 5 % % Baso (test code = 437) 1 % # Neutros (test code = 2.99 See_Comment [Aut omated message] 670) The system [employer] generated this result transmitted ref erence range: 1.56 - 6 .13 K/L. The refe rence range was not u sed to interpret this result as normal/abnor mal. # Lymphs (test code = 0.73 See_Comment L [Auto mated message] 414) The system [employer] generated this result transmitted ref erence range: 1.18 - 3 .74 K/L. The refe rence range was not u sed to interpret this result as normal/abnor mal. # Monos (test code = 0.62 See_Comment H [Autom ated message] 415) The system [employer] generated this result transmitted ref erence range: 0.24 - 0 .36 K/L. The refe rence range was not u sed to interpret this result as normal/abnor mal. # Eos (test code = 416) 0.24 See_Comment [Au tomated message] The system [employer] generated this result transmitted ref erence range: 0.04 - 0 .36 K/L. The refe rence range was not u sed to interpret this result as normal/abnor mal. # Baso (test code = 417) 0.04 See_Comment [A utomated message] The system [employer] generated this result transmitted ref erence range: 0.01 - 0 .08 K/L. The refe rence range was not u sed to interpret this result as normal/abnor mal. Immature 0 % 0-1 Granulocytes-Relative (test code = 2801) Lab Interpretation (test Abnormal code = 89562-7) [facility] with platelet count + automated [id number] 15:34:06 Test Item Value Reference Range Interpretation Comments WBC (test code = 6690-2) 4.6 See_Comment [A utomated message] The system [employer] generated this result transmitted ref erence range: 3.5 - 10 .5 K/L. The refe rence range was not u sed to interpret this result as normal/abnor mal. RBC (test code = 789-8) 2.86 See_Comment L [Au tomated message] The system [employer] generated this result transmitted ref erence range: 3.93 - 5 .22 M/L. The refe rence range was not u sed to interpret this result as normal/abnor mal. MCHC (test code = 786-4) 32.1 See_Comment L [A utomated message] The system [employer] generated this result transmitted ref erence range: 32.2 - 3 5.5 GM/DL. The refe rence range was not u sed to interpret this result as normal/abnor mal. Hematocrit (test code = 26.5 % 34.1-44.9 L 4544-3) MCV (test code = 787-2) 92.7 fL 79.4-94.8 MCH (test code = 785-6) 29.7 pg 25.6-32.2 RDW (test code = 788-0) 18.5 % 11.7-14.4 H Platelets (test code = 57 See_Comment L [Aut omated message] 777-3) The system [employer] generated this result transmitted ref erence range: 150 - 45 0 K/CU MM. The referen ce range was not u sed to interpret this result as normal/abnor mal. MPV (test code = 11.0 fL 9.4-12.3 38261-2) nRBC (test code = 413) 0 See_Comment [Aut omated message] The system [employer] generated this result transmitted ref erence range: 0 - 0 /1 00 WBC. The refere nce range was not u sed to interpret this result as normal/abnor mal. % Neutros (test code = 64 % 429) % Lymphs (test code = 16 % 430) % Monos (test code = 13 % 431) % Eos (test code = 432) 5 % % Baso (test code = 437) 1 % # Neutros (test code = 2.99 See_Comment [Aut omated message] 670) The system [employer] generated this result transmitted ref erence range: 1.56 - 6 .13 K/L. The refe rence range was not u sed to interpret this result as normal/abnor mal. # Lymphs (test code = 0.73 See_Comment L [Auto mated message] 414) The system [employer] generated this result transmitted ref erence range: 1.18 - 3 .74 K/L. The refe rence range was not u sed to interpret this result as normal/abnor mal. # Monos (test code = 0.62 See_Comment H [Autom ated message] 415) The system [employer] generated this result transmitted ref erence range: 0.24 - 0 .36 K/L. The refe rence range was not u sed to interpret this result as normal/abnor mal. # Eos (test code = 416) 0.24 See_Comment [Au tomated message] The system [employer] generated this result transmitted ref erence range: 0.04 - 0 .36 K/L. The refe rence range was not u sed to interpret this result as normal/abnor mal. # Baso (test code = 417) 0.04 See_Comment [A utomated message] The system [employer] generated this result transmitted ref erence range: 0.01 - 0 .08 K/L. The refe rence range was not u sed to interpret this result as normal/abnor mal. Immature 0 % 0-1 Granulocytes-Relative (test code = 2801) Lab Interpretation (test Abnormal code = 82069-3) [facility] with platelet count + automated [id number] 15:34:06 Test Item Value Reference Range Interpretation Comments WBC (test code = 6690-2) 4.6 See_Comment [A utomated message] The system [employer] generated this result transmitted ref erence range: 3.5 - 10 .5 K/L. The refe rence range was not u sed to interpret this result as normal/abnor mal. RBC (test code = 789-8) 2.86 See_Comment L [Au tomated message] The system [employer] generated this result transmitted ref erence range: 3.93 - 5 .22 M/L. The refe rence range was not u sed to interpret this result as normal/abnor mal. MCHC (test code = 786-4) 32.1 See_Comment L [A utomated message] The system [employer] generated this result transmitted ref erence range: 32.2 - 3 5.5 GM/DL. The refe rence range was not u sed to interpret this result as normal/abnor mal. Hematocrit (test code = 26.5 % 34.1-44.9 L 4544-3) MCV (test code = 787-2) 92.7 fL 79.4-94.8 MCH (test code = 785-6) 29.7 pg 25.6-32.2 RDW (test code = 788-0) 18.5 % 11.7-14.4 H Platelets (test code = 57 See_Comment L [Aut omated message] 777-3) The system [employer] generated this result transmitted ref erence range: 150 - 45 0 K/CU MM. The referen ce range was not u sed to interpret this result as normal/abnor mal. MPV (test code = 11.0 fL 9.4-12.3 46194-2) nRBC (test code = 413) 0 See_Comment [Aut omated message] The system [employer] generated this result transmitted ref erence range: 0 - 0 /1 00 WBC. The refere nce range was not u sed to interpret this result as normal/abnor mal. % Neutros (test code = 64 % 429) % Lymphs (test code = 16 % 430) % Monos (test code = 13 % 431) % Eos (test code = 432) 5 % % Baso (test code = 437) 1 % # Neutros (test code = 2.99 See_Comment [Aut omated message] 670) The system [employer] generated this result transmitted ref erence range: 1.56 - 6 .13 K/L. The refe rence range was not u sed to interpret this result as normal/abnor mal. # Lymphs (test code = 0.73 See_Comment L [Auto mated message] 414) The system [employer] generated this result transmitted ref erence range: 1.18 - 3 .74 K/L. The refe rence range was not u sed to interpret this result as normal/abnor mal. # Monos (test code = 0.62 See_Comment H [Autom ated message] 415) The system [employer] generated this result transmitted ref erence range: 0.24 - 0 .36 K/L. The refe rence range was not u sed to interpret this result as normal/abnor mal. # Eos (test code = 416) 0.24 See_Comment [Au tomated message] The system [employer] generated this result transmitted ref erence range: 0.04 - 0 .36 K/L. The refe rence range was not u sed to interpret this result as normal/abnor mal. # Baso (test code = 417) 0.04 See_Comment [A utomated message] The system [employer] generated this result transmitted ref erence range: 0.01 - 0 .08 K/L. The refe rence range was not u sed to interpret this result as normal/abnor mal. Immature 0 % 0-1 Granulocytes-Relative (test code = 2801) Lab Interpretation (test Abnormal code = 75946-9) [facility] with platelet count + automated [id number] 15:34:06 Test Item Value Reference Range Interpretation Comments WBC (test code = 6690-2) 4.6 See_Comment [A utomated message] The system [employer] generated this result transmitted ref erence range: 3.5 - 10 .5 K/L. The refe rence range was not u sed to interpret this result as normal/abnor mal. RBC (test code = 789-8) 2.86 See_Comment L [Au tomated message] The system [employer] generated this result transmitted ref erence range: 3.93 - 5 .22 M/L. The refe rence range was not u sed to interpret this result as normal/abnor mal. MCHC (test code = 786-4) 32.1 See_Comment L [A utomated message] The system [employer] generated this result transmitted ref erence range: 32.2 - 3 5.5 GM/DL. The refe rence range was not u sed to interpret this result as normal/abnor mal. Hematocrit (test code = 26.5 % 34.1-44.9 L 4544-3) MCV (test code = 787-2) 92.7 fL 79.4-94.8 MCH (test code = 785-6) 29.7 pg 25.6-32.2 RDW (test code = 788-0) 18.5 % 11.7-14.4 H Platelets (test code = 57 See_Comment L [Aut omated message] 777-3) The system [employer] generated this result transmitted ref erence range: 150 - 45 0 K/CU MM. The referen ce range was not u sed to interpret this result as normal/abnor mal. MPV (test code = 11.0 fL 9.4-12.3 67880-1) nRBC (test code = 413) 0 See_Comment [Aut omated message] The system [employer] generated this result transmitted ref erence range: 0 - 0 /1 00 WBC. The refere nce range was not u sed to interpret this result as normal/abnor mal. % Neutros (test code = 64 % 429) % Lymphs (test code = 16 % 430) % Monos (test code = 13 % 431) % Eos (test code = 432) 5 % % Baso (test code = 437) 1 % # Neutros (test code = 2.99 See_Comment [Aut omated message] 670) The system [employer] generated this result transmitted ref erence range: 1.56 - 6 .13 K/L. The refe rence range was not u sed to interpret this result as normal/abnor mal. # Lymphs (test code = 0.73 See_Comment L [Auto mated message] 414) The system [employer] generated this result transmitted ref erence range: 1.18 - 3 .74 K/L. The refe rence range was not u sed to interpret this result as normal/abnor mal. # Monos (test code = 0.62 See_Comment H [Autom ated message] 415) The system [employer] generated this result transmitted ref erence range: 0.24 - 0 .36 K/L. The refe rence range was not u sed to interpret this result as normal/abnor mal. # Eos (test code = 416) 0.24 See_Comment [Au tomated message] The system [employer] generated this result transmitted ref erence range: 0.04 - 0 .36 K/L. The refe rence range was not u sed to interpret this result as normal/abnor mal. # Baso (test code = 417) 0.04 See_Comment [A utomated message] The system [employer] generated this result transmitted ref erence range: 0.01 - 0 .08 K/L. The refe rence range was not u sed to interpret this result as normal/abnor mal. Immature 0 % 0-1 Granulocytes-Relative (test code = 2801) Lab Interpretation (test Abnormal code = 56209-7) [facility] with platelet count + automated [id number] 15:34:06 Test Item Value Reference Range Interpretation Comments WBC (test code = 6690-2) 4.6 See_Comment [A utomated message] The system [employer] generated this result transmitted ref erence range: 3.5 - 10 .5 K/L. The refe rence range was not u sed to interpret this result as normal/abnor mal. RBC (test code = 789-8) 2.86 See_Comment L [Au tomated message] The system [employer] generated this result transmitted ref erence range: 3.93 - 5 .22 M/L. The refe rence range was not u sed to interpret this result as normal/abnor mal. MCHC (test code = 786-4) 32.1 See_Comment L [A utomated message] The system [employer] generated this result transmitted ref erence range: 32.2 - 3 5.5 GM/DL. The refe rence range was not u sed to interpret this result as normal/abnor mal. Hematocrit (test code = 26.5 % 34.1-44.9 L 4544-3) MCV (test code = 787-2) 92.7 fL 79.4-94.8 MCH (test code = 785-6) 29.7 pg 25.6-32.2 RDW (test code = 788-0) 18.5 % 11.7-14.4 H Platelets (test code = 57 See_Comment L [Aut omated message] 777-3) The system [employer] generated this result transmitted ref erence range: 150 - 45 0 K/CU MM. The referen ce range was not u sed to interpret this result as normal/abnor mal. MPV (test code = 11.0 fL 9.4-12.3 61637-7) nRBC (test code = 413) 0 See_Comment [Aut omated message] The system [employer] generated this result transmitted ref erence range: 0 - 0 /1 00 WBC. The refere nce range was not u sed to interpret this result as normal/abnor mal. % Neutros (test code = 64 % 429) % Lymphs (test code = 16 % 430) % Monos (test code = 13 % 431) % Eos (test code = 432) 5 % % Baso (test code = 437) 1 % # Neutros (test code = 2.99 See_Comment [Aut omated message] 670) The system [employer] generated this result transmitted ref erence range: 1.56 - 6 .13 K/L. The refe rence range was not u sed to interpret this result as normal/abnor mal. # Lymphs (test code = 0.73 See_Comment L [Auto mated message] 414) The system [employer] generated this result transmitted ref erence range: 1.18 - 3 .74 K/L. The refe rence range was not u sed to interpret this result as normal/abnor mal. # Monos (test code = 0.62 See_Comment H [Autom ated message] 415) The system [employer] generated this result transmitted ref erence range: 0.24 - 0 .36 K/L. The refe rence range was not u sed to interpret this result as normal/abnor mal. # Eos (test code = 416) 0.24 See_Comment [Au tomated message] The system [employer] generated this result transmitted ref erence range: 0.04 - 0 .36 K/L. The refe rence range was not u sed to interpret this result as normal/abnor mal. # Baso (test code = 417) 0.04 See_Comment [A utomated message] The system [employer] generated this result transmitted ref erence range: 0.01 - 0 .08 K/L. The refe rence range was not u sed to interpret this result as normal/abnor mal. Immature 0 % 0-1 Granulocytes-Relative (test code = 2801) Lab Interpretation (test Abnormal code = 56305-8) [facility] with platelet count + automated [id number] 15:34:06 Test Item Value Reference Range Interpretation Comments WBC (test code = 6690-2) 4.6 See_Comment [A utomated message] The system [employer] generated this result transmitted ref erence range: 3.5 - 10 .5 K/L. The refe rence range was not u sed to interpret this result as normal/abnor mal. RBC (test code = 789-8) 2.86 See_Comment L [Au tomated message] The system [employer] generated this result transmitted ref erence range: 3.93 - 5 .22 M/L. The refe rence range was not u sed to interpret this result as normal/abnor mal. MCHC (test code = 786-4) 32.1 See_Comment L [A utomated message] The system [employer] generated this result transmitted ref erence range: 32.2 - 3 5.5 GM/DL. The refe rence range was not u sed to interpret this result as normal/abnor mal. Hematocrit (test code = 26.5 % 34.1-44.9 L 4544-3) MCV (test code = 787-2) 92.7 fL 79.4-94.8 MCH (test code = 785-6) 29.7 pg 25.6-32.2 RDW (test code = 788-0) 18.5 % 11.7-14.4 H Platelets (test code = 57 See_Comment L [Aut omated message] 777-3) The system [employer] generated this result transmitted ref erence range: 150 - 45 0 K/CU MM. The referen ce range was not u sed to interpret this result as normal/abnor mal. MPV (test code = 11.0 fL 9.4-12.3 22441-6) nRBC (test code = 413) 0 See_Comment [Aut omated message] The system [employer] generated this result transmitted ref erence range: 0 - 0 /1 00 WBC. The refere nce range was not u sed to interpret this result as normal/abnor mal. % Neutros (test code = 64 % 429) % Lymphs (test code = 16 % 430) % Monos (test code = 13 % 431) % Eos (test code = 432) 5 % % Baso (test code = 437) 1 % # Neutros (test code = 2.99 See_Comment [Aut omated message] 670) The system [employer] generated this result transmitted ref erence range: 1.56 - 6 .13 K/L. The refe rence range was not u sed to interpret this result as normal/abnor mal. # Lymphs (test code = 0.73 See_Comment L [Auto mated message] 414) The system [employer] generated this result transmitted ref erence range: 1.18 - 3 .74 K/L. The refe rence range was not u sed to interpret this result as normal/abnor mal. # Monos (test code = 0.62 See_Comment H [Autom ated message] 415) The system [employer] generated this result transmitted ref erence range: 0.24 - 0 .36 K/L. The refe rence range was not u sed to interpret this result as normal/abnor mal. # Eos (test code = 416) 0.24 See_Comment [Au tomated message] The system [employer] generated this result transmitted ref erence range: 0.04 - 0 .36 K/L. The refe rence range was not u sed to interpret this result as normal/abnor mal. # Baso (test code = 417) 0.04 See_Comment [A utomated message] The system [employer] generated this result transmitted ref erence range: 0.01 - 0 .08 K/L. The refe rence range was not u sed to interpret this result as normal/abnor mal. Immature 0 % 0-1 Granulocytes-Relative (test code = 2801) Lab Interpretation (test Abnormal code = 81438-8) [facility] W/PLT COUNT & AUTO [id number] 15:34:06 Test Item Value Reference Range Interpretation Comments WHITE BLOOD CELL COUNT (BEAKER) 4.6 K/ L 3.5-10.5 (test code = 775) RED BLOOD CELL COUNT (BEAKER) 2.86 M/ L 3.93-5.22 L (test code = 761) HEMOGLOBIN (BEAKER) (test code = 8.5 GM/DL 11.2-15.7 L 410) HEMATOCRIT (BEAKER) (test code = 26.5 % 34.1-44.9 L 411) MEAN CORPUSCULAR VOLUME (BEAKER) 92.7 fL 79.4-94.8 (test code = 753) MEAN CORPUSCULAR HEMOGLOBIN 29.7 pg 25.6-32.2 (BEAKER) (test code = 751) MEAN CORPUSCULAR HEMOGLOBIN CONC 32.1 GM/DL 32.2-35.5 L (BEAKER) (test code = 752) RED CELL DISTRIBUTION WIDTH 18.5 % 11.7-14.4 H (BEAKER) (test code = 412) PLATELET COUNT (BEAKER) (test code 57 K/CU MM 150-450 L = 756) MEAN PLATELET VOLUME (BEAKER) 11.0 fL 9.4-12.3 (test code = 754) NUCLEATED RED BLOOD CELLS (BEAKER) 0 /100 WBC 0-0 (test code = 413) NEUTROPHILS RELATIVE PERCENT 64 % (BEAKER) (test code = 429) LYMPHOCYTES RELATIVE PERCENT 16 % (BEAKER) (test code = 430) MONOCYTES RELATIVE PERCENT 13 % (BEAKER) (test code = 431) EOSINOPHILS RELATIVE PERCENT 5 % (BEAKER) (test code = 432) BASOPHILS RELATIVE PERCENT 1 % (BEAKER) (test code = 437) NEUTROPHILS ABSOLUTE COUNT 2.99 K/ L 1.56-6.13 (BEAKER) (test code = 670) LYMPHOCYTES ABSOLUTE COUNT 0.73 K/ L 1.18-3.74 L (BEAKER) (test code = 414) MONOCYTES ABSOLUTE COUNT (BEAKER) 0.62 K/ L 0.24-0.36 H (test code = 415) EOSINOPHILS ABSOLUTE COUNT 0.24 K/ L 0.04-0.36 (BEAKER) (test code = 416) BASOPHILS ABSOLUTE COUNT (BEAKER) 0.04 K/ L 0.01-0.08 (test code = 417) IMMATURE GRANULOCYTES-RELATIVE 0 % 0-1 PERCENT (BEAKER) (test code = 2801) POCT-GLUCOSE [id number] 12:42:57 Test Item Value Reference Range Interpretation Comments POC-GLUCOSE METER 216 mg/dL 70-110 H : TESTED A T [facility] 6720 (BEAKER) (test code = [facility], 1538) [address]67: [employer] Associate/Techni kelle ID = [id number] for Kayla Emanuel Prepare Leuko-Red [id number] 10:49:00 Test Item Value Reference Range Interpretation Comments CROSSMATCH (test code = 2264) COMPATIBLE Unit ABO (test code = O Pos 8994060) UNIT NUMBER (test code = [id number] 934-0) Status (test code = 8318520) ISSUED Blood Bank Product (test code RED BLOOD CELLS = 2263) PRODUCT CODE (test code = M5514B65 933-2) [facility] [id number] 10:49:00 Test Item Value Reference Range Interpretation Comments CROSSMATCH (test code = 2264) COMPATIBLE Unit ABO (test code = O Pos 0762886) UNIT NUMBER (test code = [id number] 934-0) Status (test code = 1428880) ISSUED Blood Bank Product (test code RED BLOOD CELLS = 2263) PRODUCT CODE (test code = L4360Q32 933-2) [facility] [id number] 10:49:00 Test Item Value Reference Range Interpretation Comments CROSSMATCH (test code = 2264) COMPATIBLE Unit ABO (test code = O Pos 1992346) UNIT NUMBER (test code = [id number] 934-0) Status (test code = 8086582) ISSUED Blood Bank Product (test code RED BLOOD CELLS = 2263) PRODUCT CODE (test code = R9986P39 933-2) [facility] [id number] 08:43:51 Test Item Value Reference Range Interpretation Comments POC-GLUCOSE METER 209 mg/dL 70-110 H : TESTED A T [facility] 6720 (BEAKER) (test code = [facility], 1538) 34664: [employer] Associate/Techni kelle ID = [id number] for Kayla Emanuel RAD, CHEST, 1 VIEW, NON [id number] 07:26:00Reason for exam:->post-opShould this be performed at the bedside?->Yes [facility] : 1955 Sex: FFINAL REPORT RAD, CHEST, 1 VIEW, NON DEPT INDICATION: post-op NAZ RISON: Prior day's exam FINDINGS: Portable frontal view of the chest. IMPRESSION: Support Lines: Central catheter tip overlies the atriocaval junction. Pacer device. Lungs and pleura: Small left effusion and left basilar atelectasis. Mild diffuse thickening persists. No significant pneumothorax. He art and mediastinum: Stable contours. Stable surgical changes. Additional findings: None. Signed: Bayron Cosme MDReport Verified Date/Time: 06/28/2021 07:26:22 BASIC METABOLIC [id number] 04:56:45 Test Item Value Reference Range Interpretation Comments SODIUM (BEAKER) 136 meq/L 136-145 (test code = 381) POTASSIUM (BEAKER) 3.8 meq/L 3.5-5.1 Specimen slightly (test code = 379) hemolyzed CHLORIDE (BEAKER) 102 meq/L 98-107 (test code = 382) CO2 (BEAKER) (test 26 meq/L 22-29 code = 355) BLOOD UREA NITROGEN 25 mg/dL 7-21 H (BEAKER) (test code = 354) CREATININE (BEAKER) 3.84 mg/dL 0.57-1.25 H Specimen slightly (test code = 358) hemolyzed GLUCOSE RANDOM 172 mg/dL 70-105 H (BEAKER) (test code = 652) CALCIUM (BEAKER) 8.0 mg/dL 8.4-10.2 L (test code = 697) EGFR (BEAKER) (test 12 mL/min/1.73 ESTIMA LEVI GFR IS code = 1092) sq m NOT ACCURATE CREATININE CLEARANCE IN PREDICTING GLOMERULAR FILTRATION RATE . ESTIMATED GFR I S NOT APPLICABLE FOR DIALYSIS PATIEN TS. [employer] ID - PIAYA [id number] 04:48:49 Test Item Value Reference Range Interpretation Comments MAGNESIUM (BEAKER) 2.0 mg/dL 1.6-2.6 Specimen slightly (test code = 627) hemolyzed [employer] ID - PIKEZIA [id number] 04:48:49 Test Item Value Reference Range Interpretation Comments PHOSPHORUS (BEAKER) 2.5 mg/dL 2.3-4.7 Specimen slightly (test code = 604) hemolyzed [employer] ID - PIAYA LCBC (HEMOGRAM ONLY)2021-06-28 04:28:17 Test Item Value Reference Range Interpretation Comments WHITE BLOOD CELL COUNT (BEAKER) 4.1 K/ L 3.5-10.5 (test code = 775) RED BLOOD CELL COUNT (BEAKER) 2.50 M/ L 3.93-5.22 L (test code = 761) HEMOGLOBIN (BEAKER) (test code = 7.3 GM/DL 11.2-15.7 L 410) HEMATOCRIT (BEAKER) (test code = 23.4 % 34.1-44.9 L 411) MEAN CORPUSCULAR VOLUME (BEAKER) 93.6 fL 79.4-94.8 (test code = 753) MEAN CORPUSCULAR HEMOGLOBIN 29.2 pg 25.6-32.2 (BEAKER) (test code = 751) MEAN CORPUSCULAR HEMOGLOBIN CONC 31.2 GM/DL 32.2-35.5 L (BEAKER) (test code = 752) RED CELL DISTRIBUTION WIDTH 19.0 % 11.7-14.4 H (BEAKER) (test code = 412) PLATELET COUNT (BEAKER) (test code 63 K/CU MM 150-450 L = 756) MEAN PLATELET VOLUME (BEAKER) 11.1 fL 9.4-12.3 (test code = 754) NUCLEATED RED BLOOD CELLS (BEAKER) 0 /100 WBC 0-0 (test code = 413) POCT-GLUCOSE [id number] 21:38:17 Test Item Value Reference Range Interpretation Comments POC-GLUCOSE METER 200 mg/dL 70-110 H : TESTED A T [facility] 6720 (BEAKER) (test code = [facility], 1538) 53010: [employer] Associate/Techni kelle ID = [id number] for RO JOSIE DANIELSO POCT-GLUCOSE [id number] 18:02:45 Test Item Value Reference Range Interpretation Comments POC-GLUCOSE METER 217 mg/dL 70-110 H : TESTED A T [facility] 6720 (BEAKER) (test code = [facility], 1538) 65447: [employer] Associate/Techni kelle ID = [id number] for Ba rrera, Kayla POCT-GLUCOSE [id number] 15:14:18 Test Item Value Reference Range Interpretation Comments POC-GLUCOSE METER 229 mg/dL 70-110 H : TESTED A T [facility] 6720 (BEAKER) (test code = [facility], 1538) 15774: [employer] Associate/Techni kelle ID = [id number] for Ba rrera, Kayla POCT-GLUCOSE [id number] 12:20:23 Test Item Value Reference Range Interpretation Comments POC-GLUCOSE METER 160 mg/dL 70-110 H : TESTED A T [facility] 6720 (BEAKER) (test code = [facility], 1538) 60214: [employer] Associate/Techni kelle ID = [id number] for Ba rrera, Kayal SARS-CoV2/RT-PCR (Asymptomatic ONLY)2021-06-27 10:39:35 Test Item Value Reference Range Interpretation Comments SARS-COV2/RT-PCR Negative Not Detected, (test code = Negative, See 04216-6) external report for linked test SARS-COV-2 [facility] (test code = 63548-6) BRANDI (test code = Negative result for this BRANDI) test determines that SARS-CoV-2 RNA was not present in the specimen above the Limit of Detection (LOD). However, Negative results do not preclude SARS-CoV-2 infection and should not be used as the sole basis for treatment or patient management decisions. Negative results must be combined with clinical observations, patient history, and epidemiological information. A false negative result may occur if a specimen is improperly collected, transported or handled. A false negative result should be considered if patient's recent exposures or clinical presentation indicate that COVID-19 (SARS-CoV-2) is likely and diagnostic tests for other causes of illness are negative. Re-testing should be considered in cases of suspected false negatives. The limit of detection for this assay is 800 copies/mL. This SARS CoV-2 test is a real-time RT-PCR test intended for the qualitative detection of nucleic acid from SARS-CoV-2 in a nasopharyngeal swab specimen collected from individuals suspected of COVID-19 by their healthcare provider. This test has not been Food and Drug Administration (FDA) cleared or approved. This is a modified version of an approved Emergency Use Authorization (EUA) and is in the process of review by the FDA. Once authorized by the FDA, the issued EUA will be effective until the declaration that circumstances exist justifying the authorization of the emergency use of in vitro diagnostic tests for detection and/or diagnosis of COVID-19 is terminated under Section 564(b)(2) of the Act or the EUA is revoked under Section 564(g) of the Act. Fact Sheet for Healthcare Providers:https://www.[employer]/sites/default/f radha/product/documents/F act_Sheet_HC_Providers_L snc_QZMH-MgE-8.pdf Fact Sheet for Healthcare Patients:https://www.[employer] (acquired by [employer] in 2014)/sites/default/fi les/product/documents/Fa ct_Sheet_Patients_Lyra_S ARS-CoV-2.pdf Performing Laboratory:[facility] [place] [address] [facility]2021-06-27 10:39:35 Test Item Value Reference Range Interpretation Comments SARS-COV2/RT-PCR Negative Not Detected, (test code = Negative, See 27498-3) external report for linked test SARS-COV-2 [facility] (test code = 38385-2) BRANDI (test code = Negative result for this BRANDI) test determines that SARS-CoV-2 RNA was not present in the specimen above the Limit of Detection (LOD). However, Negative results do not preclude SARS-CoV-2 infection and should not be used as the sole basis for treatment or patient management decisions. Negative results must be combined with clinical observations, patient history, and epidemiological information. A false negative result may occur if a specimen is improperly collected, transported or handled. A false negative result should be considered if patient's recent exposures or clinical presentation indicate that COVID-19 (SARS-CoV-2) is likely and diagnostic tests for other causes of illness are negative. Re-testing should be considered in cases of suspected false negatives. The limit of detection for this assay is 800 copies/mL. This SARS CoV-2 test is a real-time RT-PCR test intended for the qualitative detection of nucleic acid from SARS-CoV-2 in a nasopharyngeal swab specimen collected from individuals suspected of COVID-19 by their healthcare provider. This test has not been Food and Drug Administration (FDA) cleared or approved. This is a modified version of an approved Emergency Use Authorization (EUA) and is in the process of review by the FDA. Once authorized by the FDA, the issued EUA will be effective until the declaration that circumstances exist justifying the authorization of the emergency use of in vitro diagnostic tests for detection and/or diagnosis of COVID-19 is terminated under Section 564(b)(2) of the Act or the EUA is revoked under Section 564(g) of the Act. Fact Sheet for Healthcare Providers:https://www.delicious idel.com/sites/default/f radha/product/documents/F act_Sheet_HC_Providers_L eud_EBYK-RlC-8.pdf Fact Sheet for Healthcare Patients:https://www.ankur del.[employer]/sites/default/fi les/product/documents/Fa ct_Sheet_Patients_Lyra_S ARS-CoV-2.pdf Performing Laboratory:[facility] [place] [address] [facility]As[facility]omatic ONLY[facility]2021-06-27 10:39:35 Test Item Value Reference Range Interpretation Comments SARS-COV2/RT-PCR Negative Not Detected, (test code = Negative, See 51717-1) external report for linked test SARS-COV-2 [facility] (test code = 36520-5) BRANDI (test code = Negative result for this BRANDI) test determines that SARS-CoV-2 RNA was not present in the specimen above the Limit of Detection (LOD). However, Negative results do not preclude SARS-CoV-2 infection and should not be used as the sole basis for treatment or patient management decisions. Negative results must be combined with clinical observations, patient history, and epidemiological information. A false negative result may occur if a specimen is improperly collected, transported or handled. A false negative result should be considered if patient's recent exposures or clinical presentation indicate that COVID-19 (SARS-CoV-2) is likely and diagnostic tests for other causes of illness are negative. Re-testing should be considered in cases of suspected false negatives. The limit of detection for this assay is 800 copies/mL. This SARS CoV-2 test is a real-time RT-PCR test intended for the qualitative detection of nucleic acid from SARS-CoV-2 in a nasopharyngeal swab specimen collected from individuals suspected of COVID-19 by their healthcare provider. This test has not been Food and Drug Administration (FDA) cleared or approved. This is a modified version of an approved Emergency Use Authorization (EUA) and is in the process of review by the FDA. Once authorized by the FDA, the issued EUA will be effective until the declaration that circumstances exist justifying the authorization of the emergency use of in vitro diagnostic tests for detection and/or diagnosis of COVID-19 is terminated under Section 564(b)(2) of the Act or the EUA is revoked under Section 564(g) of the Act. Fact Sheet for Healthcare Providers:https://www.delicious idel.com/sites/default/f radha/product/documents/F act_Sheet_HC_Providers_L hxu_IGIC-ElQ-6.pdf Fact Sheet for Healthcare Patients:https://www.[employer].com/sites/default/fi les/product/documents/Fa ct_Sheet_Patients_Lyra_S ARS-CoV-2.pdf Performing Laboratory:[facility] [place] [address] [facility]As[facility]omatic ONLY)2021-06-27 10:39:35 Test Item Value Reference Range Interpretation Comments SARS-COV2/RT-PCR Negative Not Detected, (test code = Negative, See 29660-1) external report for linked test SARS-COV-2 [facility] (test code = 28850-5) BRANDI (test code = Negative result for this BRANDI) test determines that SARS-CoV-2 RNA was not present in the specimen above the Limit of Detection (LOD). However, Negative results do not preclude SARS-CoV-2 infection and should not be used as the sole basis for treatment or patient management decisions. Negative results must be combined with clinical observations, patient history, and epidemiological information. A false negative result may occur if a specimen is improperly collected, transported or handled. A false negative result should be considered if patient's recent exposures or clinical presentation indicate that COVID-19 (SARS-CoV-2) is likely and diagnostic tests for other causes of illness are negative. Re-testing should be considered in cases of suspected false negatives. The limit of detection for this assay is 800 copies/mL. This SARS CoV-2 test is a real-time RT-PCR test intended for the qualitative detection of nucleic acid from SARS-CoV-2 in a nasopharyngeal swab specimen collected from individuals suspected of COVID-19 by their healthcare provider. This test has not been Food and Drug Administration (FDA) cleared or approved. This is a modified version of an approved Emergency Use Authorization (EUA) and is in the process of review by the FDA. Once authorized by the FDA, the issued EUA will be effective until the declaration that circumstances exist justifying the authorization of the emergency use of in vitro diagnostic tests for detection and/or diagnosis of COVID-19 is terminated under Section 564(b)(2) of the Act or the EUA is revoked under Section 564(g) of the Act. Fact Sheet for Healthcare Providers:https://www.[employer]/sites/default/f radha/product/documents/F act_Sheet_HC_Providers_L piq_KNQM-ZsU-9.pdf Fact Sheet for Healthcare Patients:https://www.[employer]ing[employer].com/sites/default/fi les/product/documents/Fa ct_Sheet_Patients_Ly_S ARS-CoV-2.pdf Performing Laboratory:[facility] [place] [address] [facility] (Asymptomatic ONLY)2021-06-27 10:39:35 Test Item Value Reference Range Interpretation Comments SARS-COV2/RT-PCR Negative Not Detected, (test code = Negative, See 54999-2) external report for linked test SARS-COV-2 [facility] (test code = 39960-8) BRANDI (test code = Negative result for this BRANDI) test determines that SARS-CoV-2 RNA was not present in the specimen above the Limit of Detection (LOD). However, Negative results do not preclude SARS-CoV-2 infection and should not be used as the sole basis for treatment or patient management decisions. Negative results must be combined with clinical observations, patient history, and epidemiological information. A false negative result may occur if a specimen is improperly collected, transported or handled. A false negative result should be considered if patient's recent exposures or clinical presentation indicate that COVID-19 (SARS-CoV-2) is likely and diagnostic tests for other causes of illness are negative. Re-testing should be considered in cases of suspected false negatives. The limit of detection for this assay is 800 copies/mL. This SARS CoV-2 test is a real-time RT-PCR test intended for the qualitative detection of nucleic acid from SARS-CoV-2 in a nasopharyngeal swab specimen collected from individuals suspected of COVID-19 by their healthcare provider. This test has not been Food and Drug Administration (FDA) cleared or approved. This is a modified version of an approved Emergency Use Authorization (EUA) and is in the process of review by the FDA. Once authorized by the FDA, the issued EUA will be effective until the declaration that circumstances exist justifying the authorization of the emergency use of in vitro diagnostic tests for detection and/or diagnosis of COVID-19 is terminated under Section 564(b)(2) of the Act or the EUA is revoked under Section 564(g) of the Act. Fact Sheet for Healthcare Providers:https://www.Sing[employer]u.[employer]/sites/default/f radha/product/documents/F act_Sheet_HC_Providers_L syj_JHKY-DcT-8.pdf Fact Sheet for Healthcare Patients:https://www.Investing[employer].Myreks/sites/default/fi les/product/documents/Fa ct_Sheet_Patients_Ly_S ARS-CoV-2.pdf Performing Laboratory:[facility] [place] [address] [facility] (As[facility]omatic ONLY)2021-06-27 10:39:35 Test Item Value Reference Range Interpretation Comments SARS-COV2/RT-PCR Negative Not Detected, (test code = Negative, See 87151-4) external report for linked test SARS-COV-2 [facility] (test code = 26445-6) BRANDI (test code = Negative result for this BRANDI) test determines that SARS-CoV-2 RNA was not present in the specimen above the Limit of Detection (LOD). However, Negative results do not preclude SARS-CoV-2 infection and should not be used as the sole basis for treatment or patient management decisions. Negative results must be combined with clinical observations, patient history, and epidemiological information. A false negative result may occur if a specimen is improperly collected, transported or handled. A false negative result should be considered if patient's recent exposures or clinical presentation indicate that COVID-19 (SARS-CoV-2) is likely and diagnostic tests for other causes of illness are negative. Re-testing should be considered in cases of suspected false negatives. The limit of detection for this assay is 800 copies/mL. This SARS CoV-2 test is a real-time RT-PCR test intended for the qualitative detection of nucleic acid from SARS-CoV-2 in a nasopharyngeal swab specimen collected from individuals suspected of COVID-19 by their healthcare provider. This test has not been Food and Drug Administration (FDA) cleared or approved. This is a modified version of an approved Emergency Use Authorization (EUA) and is in the process of review by the FDA. Once authorized by the FDA, the issued EUA will be effective until the declaration that circumstances exist justifying the authorization of the emergency use of in vitro diagnostic tests for detection and/or diagnosis of COVID-19 is terminated under Section 564(b)(2) of the Act or the EUA is revoked under Section 564(g) of the Act. Fact Sheet for Healthcare Providers:https://www.[employer]/sites/default/f radha/product/documents/F act_Sheet_HC_Providers_L egd_SJEI-WkS-8.pdf Fact Sheet for Healthcare Patients:https://www.[employer] (acquired by [employer] in 2014)/sites/default/fi les/product/documents/Fa ct_Sheet_Patients_Lyra_S ARS-CoV-2.pdf Performing Laboratory:[facility] [place] [address] [facility] (As[facility]omatic ONLY)2021-06-27 10:39:35 Test Item Value Reference Range Interpretation Comments SARS-COV2/RT-PCR Negative Not Detected, (test code = Negative, See 53040-1) external report for linked test SARS-COV-2 [facility] (test code = 29042-2) BRANDI (test code = Negative result for this BRANDI) test determines that SARS-CoV-2 RNA was not present in the specimen above the Limit of Detection (LOD). However, Negative results do not preclude SARS-CoV-2 infection and should not be used as the sole basis for treatment or patient management decisions. Negative results must be combined with clinical observations, patient history, and epidemiological information. A false negative result may occur if a specimen is improperly collected, transported or handled. A false negative result should be considered if patient's recent exposures or clinical presentation indicate that COVID-19 (SARS-CoV-2) is likely and diagnostic tests for other causes of illness are negative. Re-testing should be considered in cases of suspected false negatives. The limit of detection for this assay is 800 copies/mL. This SARS CoV-2 test is a real-time RT-PCR test intended for the qualitative detection of nucleic acid from SARS-CoV-2 in a nasopharyngeal swab specimen collected from individuals suspected of COVID-19 by their healthcare provider. This test has not been Food and Drug Administration (FDA) cleared or approved. This is a modified version of an approved Emergency Use Authorization (EUA) and is in the process of review by the FDA. Once authorized by the FDA, the issued EUA will be effective until the declaration that circumstances exist justifying the authorization of the emergency use of in vitro diagnostic tests for detection and/or diagnosis of COVID-19 is terminated under Section 564(b)(2) of the Act or the EUA is revoked under Section 564(g) of the Act. Fact Sheet for Healthcare Providers:https://www.[employer]/sites/default/f radha/product/documents/F act_Sheet_HC_Providers_L igw_HKKD-OnL-7.pdf Fact Sheet for Healthcare Patients:https://www.[employer] (acquired by [employer] in 2014)/sites/default/fi les/product/documents/Fa ct_Sheet_Patients_Lyra_S ARS-CoV-2.pdf Performing Laboratory:[facility]OV[address]/RT-PCR ([facility])2021-06-27 10:39:35 Test Item Value Reference Range Interpretation Comments SARS-COV2/RT-PCR (test Negative Not Detected, Negative, code = 8459651) See external report for linked test SARS-COV-[address] [facility] (test code = 2518888) Negative result for this test determines that SARS-CoV-2 RNA was not present in the specimen above the Limit of Detection (LOD). However, Negative results do not preclude SARS-CoV-2 infection and should not be used as the sole basis for treatment or patient management decisions. Negative results mustbe combined with clinical observations, patient history, and epidemiological information. A false negative result may occur if a specimen is improperly collected, transported or handled. A false negative result should be considered if patient's recent exposures or clinical presentation indicate that COVID-19 (SARS-CoV-2) is likely and diagnostic tests for other causes of illness are negative. Re-testing should be considered in cases of suspected false negatives.The limit of detection for this assay is 800 copies/mL.This SARS CoV-2 test is a real-time RT-PCR test intended for the qualitative detection of nucleic acid from SARS-CoV-2 in a nasopharyngeal swab specimen collected from individuals susp ected of COVID-19 by their healthcare provider.This test has not been Food and Drug Administration (FDA) cleared or approved. This is a modified version of an approved Emergency Use Authorization (EUA) and is in the process of review by the FDA. Once authorized by the FDA, the issued EUA will be effective until the declaration that circumstances exist justifying the authorization of the emergency use of in vitro diagnostic tests for detection and/or diagnosis of COVID-19 is terminated under Section 564(b)(2) of the Act or the EUA is revoked under Section 564(g) of the Act.Fact Sheet for Healthcare Providers:https://www.[employer]Fore[employer]/sites/default/files/product/documents/Fact_Shee e_XM_Mrmvgjtrr_Hjov_HSLW-YhC-2.pdfFact Sheet for Healthcare Patients:https://www.[employer]/sites/default/files/product/ documents/Gjzf_Gngkg_Vgdlzqkh_Qczw_QWZF-TuM-6.pdfPerforming Laboratory:[facility], [place] [address]XXBW-WOZLIAX METER 2021-06-27 08:35:14 Test Item Value Reference Range Interpretation Comments POC-GLUCOSE METER 99 mg/dL 70-110 : TESTED A T [facility] ([place]) (test code = YUDY Vaca [facility], 1538) [address]: [employer] Associate/Techni kelle ID = [id number] for Kayla Arenas RAD, CHEST, 1 VIEW, NON [id number] 08:17:00Reason for exam:->post-opShould this be performed at the bedside?->Yes [facility] 1955 Sex: FFINAL REPORT Chest, one view HISTORY: Postoperative Comparison: 06/03 Findings: Lungs: Mild bilateral interstitial opacities, likely pulmonary venous congestion. No significant change. Heart: Unchanged moderate cardiomegaly. Pleura: No pleural effusion or pneumothorax. Bones: Unremarkable. Lines/tubes: Unchanged in position. Signed: Erlin Carr MDReport Verified Date/Time: 06/27/2021 08:17:45 Reading Location: [address] Consult Reading Room C METABOLIC [id number] 05:32:33 Test Item Value Reference Range Interpretation Comments SODIUM (BEAKER) 138 meq/L 136-145 (test code = 381) POTASSIUM (BEAKER) 3.7 meq/L 3.5-5.1 (test code = 379) CHLORIDE (BEAKER) 103 meq/L 98-107 (test code = 382) CO2 (BEAKER) (test 28 meq/L 22-29 code = 355) BLOOD UREA NITROGEN 12 mg/dL 7-21 (BEAKER) (test code = 354) CREATININE (BEAKER) 2.56 mg/dL 0.57-1.25 H (test code = 358) GLUCOSE RANDOM 115 mg/dL 70-105 H (BEAKER) (test code = 652) CALCIUM (BEAKER) 8.1 mg/dL 8.4-10.2 L (test code = 697) EGFR (BEAKER) (test 19 mL/min/1.73 ESTIMA LEVI GFR IS code = 1092) sq m NOT ACCURATE CREATININE CLEARANCE IN PREDICTING GLOMERULAR FILTRATION RATE . ESTIMATED GFR I S NOT APPLICABLE FOR DIALYSIS PATIEN TS. [employer] Associate ID - HIEN [id number] 05:23:42 Test Item Value Reference Range Interpretation Comments PHOSPHORUS (BEAKER) (test code = 2.2 mg/dL 2.3-4.7 L 604) [employer] Associate ID - HIEN [id number] 05:23:41 Test Item Value Reference Range Interpretation Comments MAGNESIUM (BEAKER) (test code = 1.8 mg/dL 1.6-2.6 627) [employer] Associate ID - HIEN [id number] 05:19:04 Test Item Value Reference Range Interpretation Comments PTT (test code = 24801-9) 35.8 See_Comment [ Automated message] The system [employer] management generated this result transmitted ref erence range: 22.5 - 3 6.0 seconds. The re ference range was not u sed to interpret this result as normal/abnor mal. Lab Interpretation (test Normal code = 90923-3) [place] 54450022-03-26 05:19:04 Test Item Value Reference Range Interpretation Comments PTT (test code = 09541-5) 35.8 See_Comment [ Automated message] The system [employer] generated this result transmitted ref erence range: 22.5 - 3 6.0 seconds. The re ference range was not u sed to interpret this result as normal/abnor mal. Lab Interpretation (test Normal code = 98000-1) [place] 54450022-03-26 05:19:04 Test Item Value Reference Range Interpretation Comments PTT (test code = 13272-1) 35.8 See_Comment [ Automated message] The system [employer] generated this result transmitted ref erence range: 22.5 - 3 6.0 seconds. The re ference range was not u sed to interpret this result as normal/abnor mal. Lab Interpretation (test Normal code = 68269-8) [place] 54450022-03-26 05:19:04 Test Item Value Reference Range Interpretation Comments PTT (test code = 96739-8) 35.8 See_Comment [ Automated message] The system [employer] generated this result transmitted ref erence range: 22.5 - 3 6.0 seconds. The re ference range was not u sed to interpret this result as normal/abnor mal. Lab Interpretation (test Normal code = 36671-6) [place] 54450022-03-26 05:19:04 Test Item Value Reference Range Interpretation Comments PTT (test code = 26782-6) 35.8 See_Comment [ Automated message] The system [employer] generated this result transmitted ref erence range: 22.5 - 3 6.0 seconds. The re ference range was not u sed to interpret this result as normal/abnor mal. Lab Interpretation (test Normal code = 61853-5) [place] 54450022-03-26 05:19:04 Test Item Value Reference Range Interpretation Comments PTT (test code = 54586-4) 35.8 See_Comment [ Automated message] The system [employer] generated this result transmitted ref erence range: 22.5 - 3 6.0 seconds. The re ference range was not u sed to interpret this result as normal/abnor mal. Lab Interpretation (test Normal code = 29076-2) [facility] Test Item Value Reference Range Interpretation Comments PTT (test code = 84921-5) 35.8 See_Comment [ Automated message] The system [employer] generated this result transmitted ref erence range: 22.5 - 3 6.0 seconds. The re ference range was not u sed to interpret this result as normal/abnor mal. Lab Interpretation (test Normal code = 80580-5) [place] 54450022-03-26 05:19:04 Test Item Value Reference Range Interpretation Comments PTT (test code = 20768-9) 35.8 See_Comment [ Automated message] The system [employer] generated this result transmitted ref erence range: 22.5 - 3 6.0 seconds. The re ference range was not u sed to interpret this result as normal/abnor mal. Lab Interpretation (test Normal code = 56016-3) [place] 16010022-03-26 05:19:04 Test Item Value Reference Range Interpretation Comments PARTIAL THROMBOPLASTIN TIME 35.8 seconds 22.5-36.0 (BEAKER) (test code = 760) Prothrombin time/[id number] 05:18:23 Test Item Value Reference Interpretation Comments Range Protime (test code = 13.9 See_Comment [Autom ated 5902-2) message] The system which generated this result transmitted reference range : 11.9 - 14.2 seconds. The reference range was not used to interpret this result as normal/abnormal . INR (test code = 1.09 See_Comment [Automated 6301-6) message] The system which generated this result transmitted reference range : <=5.90. The reference range was not used to interpret this result as normal/abnormal . BRANDI (test code = RECOMMENDED BRANDI) COUMADIN/WARFARIN INR THERAPY RANGESSTANDARD DOSE: 2.0 - 3.0 Includes: PROPHYLAXIS for venous thrombosis, systemic embolization; TREATMENT for venous thrombosis and/or pulmonary embolus.HIGH RISK: Target INR is 2.5-3.5 for patients with mechanical heart valves. Lab Interpretation Normal (test code = 10375-8) [facility]/[id number] 05:18:23 Test Item Value Reference Interpretation Comments Range Protime (test code = 13.9 See_Comment [Autom ated 5902-2) message] The system which generated this result transmitted reference range : 11.9 - 14.2 seconds. The reference range was not used to interpret this result as normal/abnormal . INR (test code = 1.09 See_Comment [Automated Lodgeo1-6) message] The system which generated this result transmitted reference range : <=5.90. The reference range was not used to interpret this result as normal/abnormal . BRANDI (test code = RECOMMENDED BRANDI) COUMADIN/WARFARIN INR THERAPY RANGESSTANDARD DOSE: 2.0 - 3.0 Includes: PROPHYLAXIS for venous thrombosis, systemic embolization; TREATMENT for venous thrombosis and/or pulmonary embolus.HIGH RISK: Target INR is 2.5-3.5 for patients with mechanical heart valves. Lab Interpretation Normal (test code = 87549-9) [facility] CenterPro[facility] time/[id number] 05:18:23 Test Item Value Reference Interpretation Comments Range Protime (test code = 13.9 See_Comment [Autom ated 5902-2) message] The system which generated this result transmitted reference range : 11.9 - 14.2 seconds. The reference range was not used to interpret this result as normal/abnormal . INR (test code = 1.09 See_Comment [Automated 6301-6) message] The system which generated this result transmitted reference range : <=5.90. The reference range was not used to interpret this result as normal/abnormal . BRANDI (test code = RECOMMENDED BRANDI) COUMADIN/WARFARIN INR THERAPY RANGESSTANDARD DOSE: 2.0 - 3.0 Includes: PROPHYLAXIS for venous thrombosis, systemic embolization; TREATMENT for venous thrombosis and/or pulmonary embolus.HIGH RISK: Target INR is 2.5-3.5 for patients with mechanical heart valves. Lab Interpretation Normal (test code = 62206-0) [facility] CenterPro[facility]/[id number] 05:18:23 Test Item Value Reference Interpretation Comments Range Protime (test code = 13.9 See_Comment [Autom ated 5902-2) message] The system which generated this result transmitted reference range : 11.9 - 14.2 seconds. The reference range was not used to interpret this result as normal/abnormal . INR (test code = 1.09 See_Comment [Automated 6301-6) message] The system which generated this result transmitted reference range : <=5.90. The reference range was not used to interpret this result as normal/abnormal . BRANDI (test code = RECOMMENDED BRANDI) COUMADIN/WARFARIN INR THERAPY RANGESSTANDARD DOSE: 2.0 - 3.0 Includes: PROPHYLAXIS for venous thrombosis, systemic embolization; TREATMENT for venous thrombosis and/or pulmonary embolus.HIGH RISK: Target INR is 2.5-3.5 for patients with mechanical heart valves. Lab Interpretation Normal (test code = 19282-0) [facility] CenterPro[facility] time/[id number] 05:18:23 Test Item Value Reference Interpretation Comments Range Protime (test code = 13.9 See_Comment [Autom ated 5902-2) message] The system which generated this result transmitted reference range : 11.9 - 14.2 seconds. The reference range was not used to interpret this result as normal/abnormal . INR (test code = 1.09 See_Comment [Automated 6301-6) message] The system which generated this result transmitted reference range : <=5.90. The reference range was not used to interpret this result as normal/abnormal . BRANDI (test code = RECOMMENDED BRANDI) COUMADIN/WARFARIN INR THERAPY RANGESSTANDARD DOSE: 2.0 - 3.0 Includes: PROPHYLAXIS for venous thrombosis, systemic embolization; TREATMENT for venous thrombosis and/or pulmonary embolus.HIGH RISK: Target INR is 2.5-3.5 for patients with mechanical heart valves. Lab Interpretation Normal (test code = 95078-5) [facility] CenterPro[facility] time/[id number] 05:18:23 Test Item Value Reference Interpretation Comments Range Protime (test code = 13.9 See_Comment [Autom ated 5902-2) message] The system which generated this result transmitted reference range : 11.9 - 14.2 seconds. The reference range was not used to interpret this result as normal/abnormal . INR (test code = 1.09 See_Comment [Automated 6301-6) message] The system which generated this result transmitted reference range : <=5.90. The reference range was not used to interpret this result as normal/abnormal . BRANDI (test code = RECOMMENDED BRANDI) COUMADIN/WARFARIN INR THERAPY RANGESSTANDARD DOSE: 2.0 - 3.0 Includes: PROPHYLAXIS for venous thrombosis, systemic embolization; TREATMENT for venous thrombosis and/or pulmonary embolus.HIGH RISK: Target INR is 2.5-3.5 for patients with mechanical heart valves. Lab Interpretation Normal (test code = 16788-4) [facility] CenterPro[facility] time/[id number] 05:18:23 Test Item Value Reference Interpretation Comments Range Protime (test code = 13.9 See_Comment [Autom ated 5902-2) message] The system which generated this result transmitted reference range : 11.9 - 14.2 seconds. The reference range was not used to interpret this result as normal/abnormal . INR (test code = 1.09 See_Comment [Automated Lodgeo1-6) message] The system which generated this result transmitted reference range : <=5.90. The reference range was not used to interpret this result as normal/abnormal . BRANDI (test code = RECOMMENDED BRANDI) COUMADIN/WARFARIN INR THERAPY RANGESSTANDARD DOSE: 2.0 - 3.0 Includes: PROPHYLAXIS for venous thrombosis, systemic embolization; TREATMENT for venous thrombosis and/or pulmonary embolus.HIGH RISK: Target INR is 2.5-3.5 for patients with mechanical heart valves. Lab Interpretation Normal (test code = 65053-9) [facility] CenterPro[facility] time/[id number] 05:18:23 Test Item Value Reference Interpretation Comments Range Protime (test code = 13.9 See_Comment [Autom ated 5902-2) message] The system which generated this result transmitted reference range : 11.9 - 14.2 seconds. The reference range was not used to interpret this result as normal/abnormal . INR (test code = 1.09 See_Comment [Automated 6301-6) message] The system which generated this result transmitted reference range : <=5.90. The reference range was not used to interpret this result as normal/abnormal . BRANDI (test code = RECOMMENDED BRANDI) COUMADIN/WARFARIN INR THERAPY RANGESSTANDARD DOSE: 2.0 - 3.0 Includes: PROPHYLAXIS for venous thrombosis, systemic embolization; TREATMENT for venous thrombosis and/or pulmonary embolus.HIGH RISK: Target INR is 2.5-3.5 for patients with mechanical heart valves. Lab Interpretation Normal (test code = 66761-3) [facility] CenterPROTHROMBIN TIME/[id number] 05:18:23 Test Item Value Reference Range Interpretation Comments PROTIME (BEAKER) 13.9 seconds 11.9-14.2 (test code = 759) INR (BEAKER) (test 1.09 See_Comment [Automat ed message] code = 370) The system [employer] management generated this result transmitted ref erence range: <=5.90. The reference range was not used to int erpret this result as normal/abnormal . RECOMMENDED COUMADIN/WARFARIN INR THERAPY RANGESSTANDARD DOSE: 2.0 - 3.0 Includes: PROPHYLAXIS forvenous thrombosis, systemic embolization; TREATMENT for venous thrombosis and/or pulmonary embolus.HIGH RISK: Target INR is 2.5-3.5 for patients with mechanical heart valves.CBC (HEMOGRAM ONLY)2021-06-27 04:57:31 Test Item Value Reference Range Interpretation Comments WHITE BLOOD CELL COUNT (BEAKER) 3.9 K/ L 3.5-10.5 (test code = 775) RED BLOOD CELL COUNT (BEAKER) 2.72 M/ L 3.93-5.22 L (test code = 761) HEMOGLOBIN (BEAKER) (test code = 7.9 GM/DL 11.2-15.7 L 410) HEMATOCRIT (BEAKER) (test code = 24.7 % 34.1-44.9 L 411) MEAN CORPUSCULAR VOLUME (BEAKER) 90.8 fL 79.4-94.8 (test code = 753) MEAN CORPUSCULAR HEMOGLOBIN 29.0 pg 25.6-32.2 (BEAKER) (test code = 751) MEAN CORPUSCULAR HEMOGLOBIN CONC 32.0 GM/DL 32.2-35.5 L (BEAKER) (test code = 752) RED CELL DISTRIBUTION WIDTH 18.9 % 11.7-14.4 H (BEAKER) (test code = 412) PLATELET COUNT (BEAKER) (test code 68 K/CU MM 150-450 L = 756) MEAN PLATELET VOLUME (BEAKER) 11.4 fL 9.4-12.3 (test code = 754) NUCLEATED RED BLOOD CELLS (BEAKER) 0 /100 WBC 0-0 (test code = 413) POCT-GLUCOSE [id number] 21:11:10 Test Item Value Reference Range Interpretation Comments POC-GLUCOSE METER 158 mg/dL 70-110 H : TESTED A T [facility] 6720 (BEAKER) (test code = YUDY [place] [facility], 1538) [address]: [employer] Associate/Techni kelle ID = [id number] for Re yes, Sairy POCT-GLUCOSE [id number] 19:06:56 Test Item Value Reference Range Interpretation Comments POC-GLUCOSE METER 113 mg/dL 70-110 H : TESTED A T [facility] 6720 (BEAKER) (test code GISELLA [facility], = 1538) [address]993: [employer] Associate/Techni kelle ID = [id number] for Sutt onMarlenyFadi Hemoglobin and [id number] 11:43:32 Test Item Value Reference Range Interpretation Comments Hemoglobin (test code 8.5 See_Comment L [Auto mated = 786-4) message] The system which generated this result transmit levi reference range : 11.2 - 15.7 GM/ DL. The reference range was not u sed to interpret th is result as normal/abnormal . Hematocrit (test code 26.8 % 34.1-44.9 L = 4544-3) BRANDI (test code = BRANDI) [employer] Associate ID - [id number] Lab Interpretation Abnormal (test code = 48886-7) [facility] CenterHem[facility] and [id number] 11:43:32 Test Item Value Reference Range Interpretation Comments Hemoglobin (test code 8.5 See_Comment L [Auto mated = 786-4) message] The system which generated this result transmit levi reference range : 11.2 - 15.7 GM/ DL. The reference range was not u sed to interpret th is result as normal/abnormal . Hematocrit (test code 26.8 % 34.1-44.9 L = 4544-3) BRANDI (test code = BRANDI) [employer] Associate ID - [id number] Lab Interpretation Abnormal (test code = 37099-9) [facility] CenterHemoglobin and [id number] 11:43:32 Test Item Value Reference Range Interpretation Comments Hemoglobin (test code 8.5 See_Comment L [Auto mated = 786-4) message] The system which generated this result transmit levi reference range : 11.2 - 15.7 GM/ DL. The reference range was not u sed to interpret th is result as normal/abnormal . Hematocrit (test code 26.8 % 34.1-44.9 L = 4544-3) BRANDI (test code = BRANDI) [employer] Associate ID - [id number] Lab Interpretation Abnormal (test code = 55770-8) [facility] CenterHem[facility] and [id number] 11:43:32 Test Item Value Reference Range Interpretation Comments Hemoglobin (test code 8.5 See_Comment L [Auto mated = 786-4) message] The system which generated this result transmit levi reference range : 11.2 - 15.7 GM/ DL. The reference range was not u sed to interpret th is result as normal/abnormal . Hematocrit (test code 26.8 % 34.1-44.9 L = 4544-3) BRANDI (test code = BRANDI) [employer] Associate ID - [id number] Lab Interpretation Abnormal (test code = 80367-1) [facility] CenterHem[facility] and [id number] 11:43:32 Test Item Value Reference Range Interpretation Comments Hemoglobin (test code 8.5 See_Comment L [Auto mated = 786-4) message] The system which generated this result transmit levi reference range : 11.2 - 15.7 GM/ DL. The reference range was not u sed to interpret th is result as normal/abnormal . Hematocrit (test code 26.8 % 34.1-44.9 L = 4544-3) BRANDI (test code = BRANDI) [employer] Associate ID - [id number] Lab Interpretation Abnormal (test code = 90736-5) [facility] CenterHem[facility] and [id number] 11:43:32 Test Item Value Reference Range Interpretation Comments Hemoglobin (test code 8.5 See_Comment L [Auto mated = 786-4) message] The system which generated this result transmit levi reference range : 11.2 - 15.7 GM/ DL. The reference range was not u sed to interpret th is result as normal/abnormal . Hematocrit (test code 26.8 % 34.1-44.9 L = 4544-3) BRANDI (test code = BRANDI) [employer] Associate ID - [id number] Lab Interpretation Abnormal (test code = 40500-6) [facility] CenterHem[facility] and [id number] 11:43:32 Test Item Value Reference Range Interpretation Comments Hemoglobin (test code 8.5 See_Comment L [Auto mated = 786-4) message] The system which generated this result transmit levi reference range : 11.2 - 15.7 GM/ DL. The reference range was not u sed to interpret th is result as normal/abnormal . Hematocrit (test code 26.8 % 34.1-44.9 L = 4544-3) BRANDI (test code = BRANDI) [employer] Associate ID - [id number] Lab Interpretation Abnormal (test code = 44669-9) [facility] CenterHem[facility] and [id number] 11:43:32 Test Item Value Reference Range Interpretation Comments Hemoglobin (test code 8.5 See_Comment L [Auto mated = 786-4) message] The system which generated this result transmit levi reference range : 11.2 - 15.7 GM/ DL. The reference range was not u sed to interpret th is result as normal/abnormal . Hematocrit (test code 26.8 % 34.1-44.9 L = 4544-3) BRANDI (test code = BRANDI) [employer] Associate ID - [id number] Lab Interpretation Abnormal (test code = 51279-6) [facility] CenterHem[facility] and [id number] 11:43:32 Test Item Value Reference Range Interpretation Comments Hemoglobin (test code 8.5 See_Comment L [Auto mated = 786-4) message] The system which generated this result transmit levi reference range : 11.2 - 15.7 GM/ DL. The reference range was not u sed to interpret th is result as normal/abnormal . Hematocrit (test code 26.8 % 34.1-44.9 L = 4544-3) BRANDI (test code = BRANDI) [employer] Associate ID - [id number] Lab Interpretation Abnormal (test code = 30333-0) [facility] CenterHEMOGLOBIN AND [id number] 11:43:32 Test Item Value Reference Range Interpretation Comments HEMOGLOBIN (BEAKER) (test code = 8.5 GM/DL 11.2-15.7 L 410) HEMATOCRIT (AKASH) (test code = 26.8 % 34.1-44.9 L 411) [employer] Associate ID - [id number] [id number] 11:26:36 Test Item Value Reference Range Interpretation Comments POC-Glucose Meter (test 126 mg/dL 70-110 H : TE STED AT [facility] code = 1538) 67[address] [facility], 770 30: [employer] Associate/Techni kelle ID = [id number] for Ector (contract)Meeta Lab Interpretation (test Abnormal code = 42888-7) [facility] CenterPOCT-GLUCOSE [id number] 11:26:36 Test Item Value Reference Range Interpretation Comments POC-GLUCOSE METER 126 mg/dL 70-110 H : TESTED A T [facility] 6720 (AKASH) (test code = [facility] [place] [facility], 1538) [address]: [employer] Associate/Techni kelle ID = [id number] for Brando wayne (contract)Marilee POCT-GLUCOSE [id number] 09:38:49 Test Item Value Reference Range Interpretation Comments POC-GLUCOSE METER 139 mg/dL 70-110 H : TESTED A T [facility] 6720 ([facility]) (test code = [facility], 1538) [address]: University Services Program Associate/Techni kelle ID = [id number] for SWEETIE GASPAR, TUNNELED CATHETER [id number] 08:44:00Reason for Central Line/PICC?->> 21 days of IV infusionReason for exam:->needs antibiotics > 10 days, ESRD, Nephrology does not approve PICC or midline. [facility] 1955 Sex: FFINAL REPORT History: Need for long-term outpatient antibiotic access. Procedure: Following informed written consent, the patient's left cervical region and anterior chest wall were prepped and draped in the usual sterile manner. All maximum sterile barrier techniqueswere utilized including handwashing with conventional soap and water, alcohol based skin rubs, skin p reparation, catheter, mask, sterile gown, sterile gloves, sterile full body drape, sterile ultrasound gel and a sterile probe cover. 2% lidocaine was given locally for anesthesia. No conscious sedation was administered. Access was gained to the left internal jugular vein using ultrasound guidance and a micropuncture needle. A subcutaneous tunnel was created in the anterior chest wall. A 23 cm 6fr dual lumen power line central venous catheter was tunneled and following serial dilatation of the tract, placed through a peel-away sheath and into position within the superior vena cava near the cavoatrial junction under fluoroscopic control. The catheter was secured to the skin using 2-0 Prolene suture. The small incision site was closed using 2-0 chromic suture. There were no immediate complications. Findings: Spot radiograph following catheter insertion demonstrates the left internal jugular tunneled central venous catheter to lie in expected position with its tip in the superior vena cava. No pneumothorax. Ultrasound image of the left internal jugular vein prior to catheter placement shows a patent and compressible vein without evidence for thrombosis. Ultrasound image of the left internal jugular vein was obtained and archived on PACS. Impression: 1. Successful uncomplicated placement of a tu nneled left internal jugular central venous catheter. Fluoroscopy time: 0.8 minsEstimated dose reported as (Ka,r): 6.1 mGy Signed: Krzysztof Heredia MDReport Verified Date/Time: 06/26/2021 08:44:45 Reading Location: [place] [address] Angio Body Reading Room Electronically signed by: KRZYSZTOF HEREDIA M.D.on 06/26/2021 08:44 AMRAD, CHEST, 1 VIEW, NON [id number] 08:08:00Reason for exam:->post-opShould this be performed at the bedside?->Yes [facility] 1955 Sex: FFINAL REPORT CLINICAL HISTORY: post-op TECHNIQUE: 1 view of the chest. COMPARISON: 06/25/2021 IMPRESSION: There is a new left PICC line near the cavoatrial junction. The right jugular sheath and right chest tube have been removed. No pneumothorax. There are increased hazy bilateral airspace opacities. There is blunting of the right costophrenic angle. The cardiomediastinal silhouette is magnified by technique with sternotomy wires and a pacemaker. Signed: Fadia Cain MDReport Verified Date/Time: 06/26/2021 08:08:37 Reading Location: [facility] Radiology Reading Room Prepare Leuko-Red [id number] 06:01:00 Test Item Value Reference Range Interpretation Comments CROSSMATCH (test code = 2264) COMPATIBLE Unit ABO (test code = O Pos [id number]) UNIT NUMBER (test code = [id number] 934-0) Status (test code = 8389749) ISSUED Blood Bank Product (test code RED BLOOD CELLS = 2263) PRODUCT CODE (test code = X6912L08 933-2) [facility] Center[facility]uk[facility]Red [id number] 06:01:00 Test Item Value Reference Range Interpretation Comments CROSSMATCH (test code = 2264) COMPATIBLE Unit ABO (test code = O Pos [id number]) UNIT NUMBER (test code = [id number] 934-0) Status (test code = 8915954) ISSUED Blood Bank Product (test code RED BLOOD CELLS = 2263) PRODUCT CODE (test code = D2272F83 933-2) [facility] Metabolic [id number] 05:17:06 Test Item Value Reference Range Interpretation Comments Sodium (test code = 139 meq/L 332-008 4409-2) Potassium (test code = 3.7 meq/L 3.5-5.1 2823-3) Chloride (test code = 104 meq/L 98-107 2075-0) CO2 (test code = 23 meq/L -2027-) BUN (test code = 36 mg/dL 7-21 H 3094-0) Creatinine (test code 5.14 mg/dL 0.57-1.25 H = 2160-0) Glucose (test code = 170 mg/dL 70-105 H 2345-7) Calcium (test code = 8.2 mg/dL 8.4-10.2 L 39710-4) EGFR (test code = 8 mL/min/1.73 [place] [address]-2) NOT ACCURATE CREATININE CLEARANCE IN PREDICTING GLOMERULAR FILTRATION RATE . ESTIMATED GFR I S NOT APPLICABLE FOR DIALYSIS PATIENTS. BRANDI (test code = BRANDI) [employer] Associate ID - RAKAN [place] Lab Interpretation Abnormal (test code = 60391-4) [facility] Metabolic [id number] 05:17:06 Test Item Value Reference Range Interpretation Comments Sodium (test code = 139 meq/L 895-482 5094-2) Potassium (test code = 3.7 meq/L 3.5-5.1 2823-3) Chloride (test code = 104 meq/L 98-107 5-0) CO2 (test code = 23 meq/L -29 2027-9) BUN (test code = 36 mg/dL 7-21 H 3094-0) Creatinine (test code 5.14 mg/dL 0.57-1.25 H = 2160-0) Glucose (test code = 170 mg/dL 70-105 H 2345-7) Calcium (test code = 8.2 mg/dL 8.4-10.2 L 73717-6) EGFR (test code = 8 mL/min/1.73 [place] [address]-0) NOT ACCURATE CREATININE CLEARANCE IN PREDICTING GLOMERULAR FILTRATION RATE . ESTIMATED GFR I S NOT APPLICABLE FOR DIALYSIS PATIENTS. BRANDI (test code = BRANDI) [employer] Associate ID Bassam BLEDSOE W Lab Interpretation Abnormal (test code = 06781-9) [facility] [id number] 05:17:06 Test Item Value Reference Range Interpretation Comments SODIUM (BEAKER) 139 meq/L 136-145 (test code = 381) POTASSIUM (BEAKER) 3.7 meq/L 3.5-5.1 (test code = 379) CHLORIDE (BEAKER) 104 meq/L 98-107 (test code = 382) CO2 (BEAKER) (test 23 meq/L 22-29 code = 355) BLOOD UREA NITROGEN 36 mg/dL 7-21 H (BEAKER) (test code = 354) CREATININE (BEAKER) 5.14 mg/dL 0.57-1.25 H (test code = 358) GLUCOSE RANDOM 170 mg/dL 70-105 H (BEAKER) (test code = 652) CALCIUM (BEAKER) 8.2 mg/dL 8.4-10.2 L (test code = 697) EGFR (BEAKER) (test 8 mL/min/1.73 ESTIMAT ED GFR IS code = 1092) sq m NOT ACCURATE CREATININE CLEARANCE IN PREDICTING GLOMERULAR FILTRATION RATE . ESTIMATED GFR I S NOT APPLICABLE FOR DIALYSIS PATIEN TS. [employer] NORAH BLEDSOE [id number] 05:00:22 Test Item Value Reference Range Interpretation Comments Phosphorus (test code = 3.7 mg/dL 2.3-4.7 2777-1) BRANDI (test code = BRANDI) [employer] Associate ID Bassam BLEDSOE W Lab Interpretation (test Normal code = 79533-7) [facility] 05:00:22 Test Item Value Reference Range Interpretation Comments Phosphorus (test code = 3.7 mg/dL 2.3-4.7 2777-1) BRANDI (test code = BRANDI) [employer] Associate ID - RAKAN W Lab Interpretation (test Normal code = 84587-6) [facility]2022-[facility]-25 05:00:22 Test Item Value Reference Range Interpretation Comments PHOSPHORUS (BEAKER) (test code = 3.7 mg/dL 2.3-4.7 604) [employer] Associate ID - RAKAN [id number] 05:00:21 Test Item Value Reference Range Interpretation Comments Magnesium (test code = 2.2 mg/dL 1.6-2.6 42087-6) BRANDI (test code = BRANDI) [employer] Associate ID - RAKAN W Lab Interpretation (test Normal code = 98801-5) [facility]21 Test Item Value Reference Range Interpretation Comments Magnesium (test code = 2.2 mg/dL 1.6-2.6 59528-2) BRANDI (test code = BRANDI) [employer] Associate ID - RAKAN W Lab Interpretation (test Normal code = 91514-9) [facility] 05:00:21 Test Item Value Reference Range Interpretation Comments MAGNESIUM (BEAKER) (test code = 2.2 mg/dL 1.6-2.6 627) [employer] Associate ID - RAKAN [id number] 04:21:04 Test Item Value Reference Range Interpretation Comments PTT (test code = 33516-3) 35.7 See_Comment [ Automated message] The system [employer] management generated this result transmitted ref erence range: 22.5 - 3 6.0 seconds. The re ference range was not u sed to interpret this result as normal/abnor mal. Lab Interpretation (test Normal code = 36238-3) [facility] Test Item Value Reference Range Interpretation Comments PTT (test code = 12495-2) 35.7 See_Comment [ Automated message] The system [employer] generated this result transmitted ref erence range: 22.5 - 3 6.0 seconds. The re ference range was not u sed to interpret this result as normal/abnor mal. Lab Interpretation (test Normal code = 58816-2) [facility] 04:21[facility]04 Test Item Value Reference Range Interpretation Comments PARTIAL THROMBOPLASTIN TIME 35.7 seconds 22.5-36.0 (BEAKER) (test code = 760) Prothrombin time/[id number] 04:20:24 Test Item Value Reference Interpretation Comments Range Protime (test code = 14.0 See_Comment [Autom ated 5902-2) message] The system which generated this result transmitted reference range : 11.9 - 14.2 seconds. The reference range was not used to interpret this result as normal/abnormal . INR (test code = 1.10 See_Comment [Automated 6301-6) message] The system which generated this result transmitted reference range : <=5.90. The reference range was not used to interpret this result as normal/abnormal . BRANDI (test code = RECOMMENDED BRANDI) COUMADIN/WARFARIN INR THERAPY RANGESSTANDARD DOSE: 2.0 - 3.0 Includes: PROPHYLAXIS for venous thrombosis, systemic embolization; TREATMENT for venous thrombosis and/or pulmonary embolus.HIGH RISK: Target INR is 2.5-3.5 for patients with mechanical heart valves. Lab Interpretation Normal (test code = 87535-6) [facility] CenterProth[facility] time/[id number] 04:20:24 Test Item Value Reference Interpretation Comments Range Protime (test code = 14.0 See_Comment [Autom ated 5902-2) message] The system which generated this result transmitted reference range : 11.9 - 14.2 seconds. The reference range was not used to interpret this result as normal/abnormal . INR (test code = 1.10 See_Comment [Automated 6301-6) message] The system which generated this result transmitted reference range : <=5.90. The reference range was not used to interpret this result as normal/abnormal . BRANDI (test code = RECOMMENDED BRANDI) COUMADIN/WARFARIN INR THERAPY RANGESSTANDARD DOSE: 2.0 - 3.0 Includes: PROPHYLAXIS for venous thrombosis, systemic embolization; TREATMENT for venous thrombosis and/or pulmonary embolus.HIGH RISK: Target INR is 2.5-3.5 for patients with mechanical heart valves. Lab Interpretation Normal (test code = 78785-4) [facility] CenterPROTHROMBIN TIME/[id number] 04:20:24 Test Item Value Reference Range Interpretation Comments PROTIME (BEAKER) 14.0 seconds 11.9-14.2 (test code = 759) INR (BEAKER) (test 1.10 See_Comment [Automat ed message] code = 370) The system [employer] management generated this result transmitted ref erence range: <=5.90. The reference range was not used to int erpret this result as normal/abnormal . RECOMMENDED COUMADIN/WARFARIN INR THERAPY RANGESSTANDARD DOSE: 2.0 - 3.0 Includes: PROPHYLAXIS forvenous thrombosis, systemic embolization; TREATMENT for venous thrombosis and/or pulmonary embolus.HIGH RISK: Target INR is 2.5-3.5 for patients with mechanical heart valves.CBC (Hemogram only)2021-06-26 04:04:58 Test Item Value Reference Range Interpretation Comments WBC (test code = 6690-2) 4.0 See_Comment [A utomated message] The system [employer] generated this result transmitted ref erence range: 3.5 - 10 .5 K/L. The refe rence range was not u sed to interpret this result as normal/abnor mal. RBC (test code = 789-8) 2.54 See_Comment L [Au tomated message] The system [employer] generated this result transmitted ref erence range: 3.93 - 5 .22 M/L. The refe rence range was not u sed to interpret this result as normal/abnor mal. MCHC (test code = 786-4) 31.2 See_Comment L [A utomated message] The system [employer] generated this result transmitted ref erence range: 32.2 - 3 5.5 GM/DL. The refe rence range was not u sed to interpret this result as normal/abnor mal. Hematocrit (test code = 23.7 % 34.1-44.9 L 4544-3) MCV (test code = 787-2) 93.3 fL 79.4-94.8 MCH (test code = 785-6) 29.1 pg 25.6-32.2 RDW (test code = 788-0) 19.1 % 11.7-14.4 H Platelets (test code = 67 See_Comment L [Aut omated message] 777-3) The system [employer] generated this result transmitted ref erence range: 150 - 45 0 K/CU MM. The referen ce range was not u sed to interpret this result as normal/abnor mal. MPV (test code = 10.7 fL 9.4-12.3 49274-0) nRBC (test code = 413) 0 See_Comment [Aut omated message] The system [employer] generated this result transmitted ref erence range: 0 - 0 /1 00 WBC. The refere nce range was not u sed to interpret this result as normal/abnor mal. Lab Interpretation (test Abnormal code = 76907-3) [facility] (Hemogram only)2021-06-26 04:04:58 Test Item Value Reference Range Interpretation Comments WBC (test code = 6690-2) 4.0 See_Comment [A utomated message] The system [employer] generated this result transmitted ref erence range: 3.5 - 10 .5 K/L. The refe rence range was not u sed to interpret this result as normal/abnor mal. RBC (test code = 789-8) 2.54 See_Comment L [Au tomated message] The system [employer] generated this result transmitted ref erence range: 3.93 - 5 .22 M/L. The refe rence range was not u sed to interpret this result as normal/abnor mal. MCHC (test code = 786-4) 31.2 See_Comment L [A utomated message] The system [employer] generated this result transmitted ref erence range: 32.2 - 3 5.5 GM/DL. The refe rence range was not u sed to interpret this result as normal/abnor mal. Hematocrit (test code = 23.7 % 34.1-44.9 L 4544-3) MCV (test code = 787-2) 93.3 fL 79.4-94.8 MCH (test code = 785-6) 29.1 pg 25.6-32.2 RDW (test code = 788-0) 19.1 % 11.7-14.4 H Platelets (test code = 67 See_Comment L [Aut omated message] 777-3) The system [employer] generated this result transmitted ref erence range: 150 - 45 0 K/CU MM. The referen ce range was not u sed to interpret this result as normal/abnor mal. MPV (test code = 10.7 fL 9.4-12.3 86949-5) nRBC (test code = 413) 0 See_Comment [Aut omated message] The system [employer] generated this result transmitted ref erence range: 0 - 0 /1 00 WBC. The refere nce range was not u sed to interpret this result as normal/abnor mal. Lab Interpretation (test Abnormal code = 01921-5) [facility] (HEMOGRAM ONLY)2021-06-26 04:04:58 Test Item Value Reference Range Interpretation Comments WHITE BLOOD CELL COUNT (BEAKER) 4.0 K/ L 3.5-10.5 (test code = 775) RED BLOOD CELL COUNT (BEAKER) 2.54 M/ L 3.93-5.22 L (test code = 761) HEMOGLOBIN (BEAKER) (test code = 7.4 GM/DL 11.2-15.7 L 410) HEMATOCRIT (BEAKER) (test code = 23.7 % 34.1-44.9 L 411) MEAN CORPUSCULAR VOLUME (BEAKER) 93.3 fL 79.4-94.8 (test code = 753) MEAN CORPUSCULAR HEMOGLOBIN 29.1 pg 25.6-32.2 (BEAKER) (test code = 751) MEAN CORPUSCULAR HEMOGLOBIN CONC 31.2 GM/DL 32.2-35.5 L (BEAKER) (test code = 752) RED CELL DISTRIBUTION WIDTH 19.1 % 11.7-14.4 H (BEAKER) (test code = 412) PLATELET COUNT (BEAKER) (test code 67 K/CU MM 150-450 L = 756) MEAN PLATELET VOLUME (BEAKER) 10.7 fL 9.4-12.3 (test code = 754) NUCLEATED RED BLOOD CELLS (BEAKER) 0 /100 WBC 0-0 (test code = 413) POC-Glucose [id number] 21:57:30 Test Item Value Reference Range Interpretation Comments POC-Glucose Meter (test 204 mg/dL 70-110 H : TE SHAHRIAR AT [facility] code = 1538) [address] [facility] [place], 770 30: [employer] Associate/Techni kelle ID = [id number] for Estela Cancinoradha Lab Interpretation (test Abnormal code = 07312-6) [facility] [id number] 21:57:30 Test Item Value Reference Range Interpretation Comments POC-GLUCOSE METER 204 mg/dL 70-110 H : TESTED A T [facility] 6720 (BEAKER) (test code = [place], 1538) [address]: [employer] Associate/Techni kelle ID = [id number] for Ad ams, Kimetra Type and screen, automated [facility]2021-06-25 19:44:00 Test Item Value Reference Range Interpretation Comments ABO/RH AUTOMATED (BEAKER) (test O POSITIVE code = 2260) Ab Scrn (test code = 890-4) NEGATIVE [facility], automated ([facility])2021-06-25 19:44:00 Test Item Value Reference Range Interpretation Comments ABO/RH AUTOMATED (BEAKER) (test O POSITIVE code = 2260) Ab Scrn (test code = 890-4) NEGATIVE [facility], [facility] ([facility] Lab)2021-06-25 19:44:00 Test Item Value Reference Range Interpretation Comments ABO/RH AUTOMATED (BEAKER) (test O POSITIVE code = 2260) Ab Scrn (test code = 890-4) NEGATIVE [facility] ([facility])2021-06-25 19:44:00 Test Item Value Reference Range Interpretation Comments ABO/RH AUTOMATED (BEAKER) (test O POSITIVE code = 2260) Ab Scrn (test code = 890-4) NEGATIVE [facility] ([facility])2021-06-25 19:44:00 Test Item Value Reference Range Interpretation Comments ABO/RH AUTOMATED (BEAKER) (test O POSITIVE code = 2260) Ab Scrn (test code = 890-4) NEGATIVE [facility] ([facility])2021-06-25 19:44:00 Test Item Value Reference Range Interpretation Comments ABO/RH AUTOMATED (BEAKER) (test O POSITIVE code = 2260) Ab Scrn (test code = 890-4) NEGATIVE [facility] ([facility])2021-06-25 19:44:00 Test Item Value Reference Range Interpretation Comments ABO/RH AUTOMATED (BEAKER) (test O POSITIVE code = 2260) Ab Scrn (test code = 890-4) NEGATIVE [facility] ([facility])2021-06-25 19:44:00 Test Item Value Reference Range Interpretation Comments ABO/RH AUTOMATED (BEAKER) (test O POSITIVE code = 2260) Ab Scrn (test code = 890-4) NEGATIVE [facility], automated ([facility])2021-06-25 19:44:00 Test Item Value Reference Range Interpretation Comments ABO/RH AUTOMATED (BEAKER) (test O POSITIVE code = 2260) Ab Scrn (test code = 890-4) NEGATIVE [facility] CenterType and screen, automated ([facility]2021-06-25 19:44:00 Test Item Value Reference Range Interpretation Comments ABO/RH AUTOMATED (BEAKER) (test O POSITIVE code = 2260) Ab Scrn (test code = 890-4) NEGATIVE [facility] CenterPO[facility]SE [id number] 11:31:12 Test Item Value Reference Range Interpretation Comments POC-GLUCOSE METER 130 mg/dL 70-110 H : TESTED A T [facility] 6720 (BEAKER) (test code = [place], 1538) [address]: [employer] Associate/Techni kelle ID = [id number] for PH EN-[place] (V), INES RAD, CHEST, 1 VIEW, NON [id number] 09:04:00Reason for exam:->post-opShould this be performed at the bedside?->Yes [facility] 1955 Sex: FFINAL REPORT Chest AP portable Comparison exam: 06/24/2021 History p rovided: Postop evaluation Heart size magnified by projection. Lungs grossly free of acute disease and vascularity normal. Signed: Wero Alvarez Verified Date/Time: 06/25/2021 09:04:07 ReadingLocation: [facility] Diagnostic Imaging Reading Room - [facility] 1.310.12 BASIC METABOLIC [id number] 03:58:40 Test Item Value Reference Range Interpretation Comments SODIUM (BEAKER) 139 meq/L 136-145 (test code = 381) POTASSIUM (BEAKER) 3.7 meq/L 3.5-5.1 (test code = 379) CHLORIDE (BEAKER) 105 meq/L 98-107 (test code = 382) CO2 (BEAKER) (test 25 meq/L 22-29 code = 355) BLOOD UREA NITROGEN 27 mg/dL 7-21 H (BEAKER) (test code = 354) CREATININE (BEAKER) 4.23 mg/dL 0.57-1.25 H (test code = 358) GLUCOSE RANDOM 185 mg/dL 70-105 H (BEAKER) (test code = 652) CALCIUM (BEAKER) 8.2 mg/dL 8.4-10.2 L (test code = 697) EGFR (BEAKER) (test 11 mL/min/1.73 ESTIMA LEVI GFR IS code = 1092) sq m NOT ACCURATE CREATININE CLEARANCE IN PREDICTING GLOMERULAR FILTRATION RATE . ESTIMATED GFR I S NOT APPLICABLE FOR DIALYSIS PATIEN TS. [employer] Program Associate ID - [id number] 03:40:57 Test Item Value Reference Range Interpretation Comments PARTIAL THROMBOPLASTIN TIME 46.7 seconds 22.5-36.0 H (BEAKER) (test code = 760) PROTHROMBIN TIME/[id number] 03:39:54 Test Item Value Reference Range Interpretation Comments PROTIME (BEAKER) 13.6 seconds 11.9-14.2 (test code = 759) INR (BEAKER) (test 1.05 See_Comment [Automat ed message] code = 370) The system [employer] management generated this result transmitted ref erence range: <=5.90. The reference range was not used to int erpret this result as normal/abnormal . RECOMMENDED COUMADIN/WARFARIN INR THERAPY RANGESSTANDARD DOSE: 2.0 - 3.0 Includes: PROPHYLAXIS forvenous thrombosis, systemic embolization; TREATMENT for venous thrombosis and/or pulmonary embolus.HIGH RISK: Target INR is 2.5-3.5 for patients with mechanical heart valves.[id number] 03:34:10 Test Item Value Reference Range Interpretation Comments PHOSPHORUS (BEAKER) (test code = 3.8 mg/dL 2.3-4.7 604) [employer] Associate ID - [id number] 03:34:09 Test Item Value Reference Range Interpretation Comments MAGNESIUM (BEAKER) (test code = 2.3 mg/dL 1.6-2.6 627) [employer] Program Associate ID - [facility] (HEMOGRAM ONLY)2021-06-25 03:11:29 Test Item Value Reference Range Interpretation Comments WHITE BLOOD CELL COUNT (BEAKER) 4.4 K/ L 3.5-10.5 (test code = 775) RED BLOOD CELL COUNT (BEAKER) 2.75 M/ L 3.93-5.22 L (test code = 761) HEMOGLOBIN (BEAKER) (test code = 8.1 GM/DL 11.2-15.7 L 410) HEMATOCRIT (BEAKER) (test code = 25.7 % 34.1-44.9 L 411) MEAN CORPUSCULAR VOLUME (BEAKER) 93.5 fL 79.4-94.8 (test code = 753) MEAN CORPUSCULAR HEMOGLOBIN 29.5 pg 25.6-32.2 (BEAKER) (test code = 751) MEAN CORPUSCULAR HEMOGLOBIN CONC 31.5 GM/DL 32.2-35.5 L (BEAKER) (test code = 752) RED CELL DISTRIBUTION WIDTH 19.3 % 11.7-14.4 H (BEAKER) (test code = 412) PLATELET COUNT (BEAKER) (test code 76 K/CU MM 150-450 L = 756) MEAN PLATELET VOLUME (BEAKER) 11.0 fL 9.4-12.3 (test code = 754) NUCLEATED RED BLOOD CELLS (BEAKER) 0 /100 WBC 0-0 (test code = 413) POCT-GLUCOSE [id number] 22:14:10 Test Item Value Reference Range Interpretation Comments POC-GLUCOSE METER 185 mg/dL 70-110 H : TESTED A T [facility] 6720 (BEAKER) (test code = [place], 1538) [address]: [employer] Associate/Techni kelle ID = [id number] for Sheryl Bergeron, ABDOMEN/KUB, 1 VIEW [id number] 19:49:00Reason for exam:->concern for ileusShould this be performed at the bedside?->Yes [facility] DES[facility]EM[facility]LLA ZepedaDA MONTOYA : 1955 Sex: FFINAL REPORT Abdomen dated 06/24/2021 Comment:Abdomen was examined in the supine and erect position. There is paucity of air in the small and large bowel. No mass, pathological calcification, or free air is present. Impression: Nonspecific gas pattern. Signed: Andrew Palmerort Verified Date/Time: 06/24/2021 19:49:12 CT, CTA CORONARY, W/ YOEL [id number] 16:36:00 [facility] : 1955 Sex: FAddendum BeginsREPORT STATUS:A Impression: Mildly nodular appearance of the liver margins. Please correlate with underlying liver function tests to exclude chronic liver disease. No abnormally enhancing lesions in the liver parenchyma.Low-density lesion in the right lobe of the thyroid gland. Recommend dedicated thyroid ultrasound for further evaluation outpatient set ting.Other findings as mentioned in the full stack developer report.No additional significant nonvascular findings identified. Signed: Lise Andrade MDReport Verified Date/Time: 06/24/2021 16:36:13 ReadingLocation: [address] Radiology Reading RoomAddendum EndsFINAL REPORT CT cor onary angiography, 15-Jun-21 INDICATION: This is a 65 -year old female with diagnosis of high CAD risk presents for assessment. TECHNIQUE: Spiral acquisition before and during intravenous contrast administration using a Siemens multidetector CT scanner. Multi-planar 3-D volume-rendering reconstruction was performed using an independent workstation interactively by the interpreting physician as wellas the 3-D specialist for optimal visualisation of the coronary anatomy. Consecutive thin slices (< 1mm) were obtained. Please refer to [facility] regarding the medication administered for this examination. This exam was performed according to our departmental dose- optimisation programme, which includes automated exposure control, adjustment of the mA and/or kV according to patient size and/or use ofiterative reconstruction technique. Dose modulation, iterative reconstruction, and/or weight based ad justment of the mA/kV was utilized to reduce the radiation dose to as low as reasonably achievable. FINDINGS: VASCULAR: An electronic device is identified in the right upper chest, with pacing leads identified in the right-sided cardiac chambers. The thoracic aorta is normal in course, caliber, contour. Focal calcification is seen in the aortic root, and there is also scattered calcific and noncalcific atherosclerosis seen in the transverse arch. There is no acute aortic pathology, specifically, there is no dissection, contained rupture, and intramural hematoma. The arch vessel branching patternis normal. Minimal nonobstructive calcification is seen at the takeoff of the left subclavian artery. No stenosis is seen. The right subclavian artery is also widely patent. The central pulmonary artery is prominent; correlate with appropriate aetiology. The left ventricle is normal in size. Left atrial enlargement is identified. Right atrial prominence is noted. No mitral annular calcification is seen. No aortic valvular calcification is present. There is normal atrio-ventricular and ventriculo-arterial concordance, and systemic and pulmonary venous return. No pericardial effusion is identified. Calcium score and high-resolution, ECG synchronized computed tomography of the heart with attention to the coronary arteries was performed. Coronary calcification was analyzed using the [employer] system software. These are the results of the calcium score evaluation (threshold = 130 HU): LM: = 0 LAD: = 993 LCX: = 345 RCA: = 33 Agatston: = 1371 and bypass Reference ranges for calcium scores are provided as follows (Hanson Clin Proc 1999; 74: 243-252): 0-10: minimal calcium 11-100: mild calcium 101-400 moderate calcium > 400 significant calcium The coronary arteries have normal origins. The left main coronary artery arises from the left sinus of Valsalva and give rise to the left anterior descending of the left circumflex arteries in the normal fashion. The right coronary artery arises from the right sinus of Valsalva. Eccentric n onobstructive calcification is identified in the left main coronary artery. The proximal mid LAD hassevere calcification identified. Patient is post coronary bypass surgery. The left internal mammary artery is patent, and in the available images, appears to connect to the LAD territory. It is patent. A bypass graft is identified, connecting to the LCx territory and this bypass graft is widely patent. Tiny distal runoff is identified in the OM branch. A bypass graft is identified, connecting to thedistal RCA and is widely patent. Distal runoff to the RCA is identified. Regarding the [place] coronary arteries, diffuse calcification identified the proximal LCx making accurate assessment limited. 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 NON-VASCULAR: A 1.2 cm hypodensity is identified in the right thyroid lobe at image 7. An addendum will be dictated thereafter by Informatics Spec Radiologist if dedicated thyroid ultrasound scan is required. The chest wall and mediastinum appears unremarkable. Patient is post median sternotomy. No significant adenopathy is identified in the mediastinum. In thelung windows, no endobronchial lesion is seen. Moderate right pleural effusion is identified with associated atelectatic changes present. Trivial pericardial effusion identified in the left base. The pulmonary vascular appears to be somewhat prominent suggesting a degree of cardiac congestion. Correlate with clinical examination. A juxtapleural nodule is identified, at image 24, measures 6 to 7 mm indiameter. Limited images of the upper abdomen reveals no acute abnormalities. It is uncertain if theliver edge could be mildly serrated. An addendum will be dictated thereafter. In the AP orientation,the spleen measures at least 13.3 cm at that is minimally prominent. At image 47 no wedge-shaped structure is identified in the mid spleen, and may represent infarction. Trace perihepatic ascites is identified. The IVC and hepatic veins are prominent, as expected. No acute bony pathology is seen. CONCLUSIONS: 1. Quantitative coronary artery calcium Agatston score of at least 1371, in the backgroundhistory of coronary artery bypass surgery. 2. Normal coronary artery origins. Patient has known coronary artery disease as a result, patient is post coronary artery bypass surgery. The left main coronary artery is widely patent with eccentric calcification present. Significant calcification is seen in the proximal mid LAD. See above for details. The left internal mammary artery bypass graft, the b ypass graft to the LCx, and the bypass graft to the RCA territories are widely patent. 3. The central pulmonary artery is prominent. Bibasal pleural effusion, in particular, moderate effusion identified in the right base. There is a 6 to 7 mm juxtapleural nodule identified in the right lung. 2017 Fleischner Society Recommendations for Multiple Solid Lung Nodules Follow-Up base on size (average of long- and short-axis diameters). Use most suspicious nodule for followup. Nodule Size <6 mm Low-Risk Patient: No routine follow-up Nodule Size <6 mm High-Risk Patient: Optional CT at 12 months NoduleSize 6-8 mm Low-Risk Patient: CT at 3-[address] at 18-24 monthsNodule Size 6-8 mm High-Risk Patient: CT at 3-6 months then at 18-24 months Nodule Size (mm) >8 Low-Risk Patient: CT at 3-6 months, then consider CT at 18-24 monthsNodule Size (mm) >8 High-Risk Patient: CT at 3-6 months, then at 18-24 months 4. Normal thoracic aorta. Scattered calcification is seen. No ectasia or aneurysmal dilation is identified. The left subclavian artery is widely patent. 5. Other findings as described above. 6. An addendum will be dictated by the Informatics Spec Radiologist regarding the nonvascular findings. THE REPORT WILL ONLY BE CONSIDERED COMPLETE AFTER THE ADDENDUM HAS BEEN DICTATED. Signed: Dung Fletcher Verified Date/Time: 06/23/2021 08:29:48 POCT-GLUCOSE [id number] 16:19:22 Test Item Value Reference Range Interpretation Comments POC-GLUCOSE METER 108 mg/dL 70-110 : TESTED A T [facility] 6720 (BEAKER) (test code = [place], 1538) [address]: [employer] Associate/Techni kelle ID = [id number] for Aditya brewer (contract), [facility] Tissue [id number] 15:29:08 Test Item Value Reference Range Interpretation Comments Case Report (test code Surgical Pathology = 104) Report Case: [id number] Authorizing Provider: Logan Russo MD Collected: 06/18/2021 11:41 AM Ordering Location: [facility] Received: 06/19/2021 03:44 PM PERIOPERATIVE SERVICES Pathologist: Tom Paige MD Specimen: Mass, MITRAL VALVE MASS- for MICROBIOLOGY then pls send to Pathology DIAGNOSIS (test code = [id number] 3220) uZzEwMzNcZnRuYmpcdWMxIH tccnRmMVxlcGljOTYwMVxhb hJvNEJrdYBmE4LzmwruAGhp UU2tBU6kqPrhsAQjlZBzSXE vJmMdv4cha140qREls9tfRD EHpcaapRd4sSegH49ff3I1W ydpL07svKEsIBX2YJDuZTJn bYOiYMPdQBH2NEUlzMKgU4f aGBTtCT0kruyqQKgfJAvsRH UmcWO7BIWjhNBdZ9QbWYWlT DobNYPknxg6WcMmKh0ccRFh eTcyMFxwYXJkXHBsYWluXGZ fIaAkDR9qKINLTpJyXD1DSG JBTCBWQUxWRSwgREVCUklER W2SYuLuZZ7ESGVSPYLZQdnz cGFyIEZJQlJJTiwgQUNVVEU iLJ0OXBQIOMEWM7ENSFRSM1 NOP3OAIWOTSiWyA5JIJ8pDB AEMPWoWWq9ugSRyLVMOZVKC VTnyP9UWCE5QCVKVStXZErJ KD8KKK4KDLA7WS2HXMBJJSq ZTRQ6GKM2ZAZQCVGGYPmXPI JXTCzFLB8eWU2swEWzfCAMg U67AOmBNNWCWN09wI3qHFIR MMFCHI4VEL9cDE0hJTQrxC2 KOQWjYPkMDBbHIRMXRPP6IG lIRGO9qJKKzqe93PPW1YjZn m1K6ZFP8RPZqVVJvy3dsUNW mbGFuZzEwMzNcZnRuYmpcdW UmEDRsEkOmb2gpp541lUQkc 7zbRBUpFnU0rJPdRCNbpJBa E379UVKaWJrtb5zad9SoLCK ivHUcv8N4VCJWdpuopGt6xU etB60ny5S6EibfB0ojISPaZ YFvU7QlRF9gSRGpZkx9MMQ4 QDW4DUCsXUBwZ3AzQN1mJUQ scSDsQZu4c9kinRivSKJlCA Z0j0aqDPsxzdUoEP4nxm4vx Ia2w9sekmPlPVAoLBHzzJRD KLBcI5GedLluWl4xwSh6bAf zZscfQHF3Zuq3WU8xdw17hw i8pWrtFJDolymqSeX6LJgkI UHupfjpDSq7IKtrXDSizMG0 FYFkmEWwN7WnBBMvXV8emup 9DEV0XAovHNJnBoR7EMLruT RaVWLlqNbuTTtaq689OST4D rVkXI2lG8Wqf6U5jY5jcESy KEZrdSLrAeHkHBHvhz4lgSK sOVdwv5DtZGH2liY3sNBhzB PnPAPbRiL3AZjkHI5jpc79X OJeOSQ5fw7ueBNkbTeaywXq sWHfLKeaY3FzCWUid283RSQ wW3PlOQVln4T0zkJuGaHaXJ CfmTD8ekF8ASUoPH9kpyedm 9yxWNsuEBmhIKQtwhU8crC8 DOLlqNLdZ1ZgoA1mGSGaLG1 xfqxcz3tcCXF3DThnLICkCR B9IdBhOPMoz0Shamn4IfXom 1XnjMUzSNfpQ29sp281CODv teOjA0qtdGHzmxhodQGnbnq fIKhpuxO4RKKzBXeuzrlsIW XkGGmlD3hcWzYuRHCuoElcV Vqfz0EcFQZmWMJmDvSaiYTm WWTiVlb8KJIvtESwGYRoGcM eS4rjmkcgDrOJWRKcg7iqL2 fmcPHDpYXkV2UpTUoiocThA YwoURpjOxSmEAPtKO94UTS9 AZBekq83 CPT Code(s) (test code e5kcrVBcNOKqiSO3EmZtGGI = 3357) yf3iqg3FmpXJpqZHjGUigxK CckvNdpq39dJK2iF64NM8jU MNeMeS4YLGnxfE7Otw0UPQe RHTlkRRtP614x9wvs5jbxzH yxGE0bKjbQAYiyqegNjC9AS wlPOQoiiwwGLz1ZFupAEFpg SM9CCNlbXHaL6XoFCKvSK1d fzc8LAD1JNraLCFsIcI4OKK bdBRrSJJmoPncWCxtw549HA C0UtPpIROincEicXeeqN5jU uMbMBP6BYEkZJygWKptEMCT Z1gmIVZ6 CLINICAL HISTORY (test y8uzvWAjMYCerVW9KrMpOLL code = 3356) xy9mwm3NrtTLxhKMxUKzlgO LpvcSwcu44mTW4eG10RA3tH XLbXsW3RNKrqjX7Axe6SDJo ODGnsIBaW461s1frv3ujzzX onRG1nCdgPMTwfpyqJxK6CY znFQJpyjkaGNs9TCihJIJek AQ4NQGpgNIvW8WxTRAjKV5k ptb8GVZ6DCcbYQCnEhD8FCB gfEEtKOXqcMlwWVfha002UU R0HqIaQYYbxkZtgYfmvC0uK aOjNATKjcBrO9WjEEg5sWGr cGFyfQ== SPECIMEN SOURCE (test u2ibaZUcUONkzAQ5QuIrFKZ code = 3377) er7iba5OkwGVknIRjYOdacI WbndVdxn34lWB7yH67HY9gW HFhYdA0EZZnywG4Kzz9YILl LZMxuBWwC716w2lly5rjmaR ioUU5xWtePVTsvrghQiV2CA nmAFJggektSBf4SXwlASXeu AS5HILpdDOyJ5JzLMDaHK2w fem7VPS5TDwsBJKzFlE2VQZ koXXnCAZbtCbtFXqbj462CB E8OiYqTHVzqrRpcCnslB7nP nMyMCBNaXRyYWwgdmFsdmVc cGFyfQ== GROSS DESCRIPTION p6ljtKVbKPZwgMWfDhSpAVI (test code = 3366) jPFWpn7fzGGSdwLDlEfArHs NcZnRuYmpcdWMxXGRlZmYwe 5fsq473bMFwm2tyORCwGvI1 cDGnKPRjmCGhD430NANrEWt zc7jna6UmQGKodYSwx6G3QZ DGqioriVt6rYzaG76ed3L9N qmlL8pfZTMkJYBiG1MxTH0k GPScFbb2QSI4WIU0GWTrXKC fD8EaCA3oBBQwuRQwUPt8m8 ubzDsjLXLzYSP7v5goYKdyv fZzUM9wbp6peUb3y1csxhPg VMLpXRXuhMMFCUXgY2ZuiVp mVg8tqRz6jWjrRlhjGCV2Ak h3PL8udw10wbh8uWeyPDJqj jnfWfP4LYxfBUThacdcSSt8 MFxtYXJnbDcyMFxtYXJncjc yMFxtYXJndDcyMFxtYXJnYj lvVAyeVNVlFEK9CCjyg850W JL8SOvon9fbf8hfmFWhZdw9 ZXMrTxKrAmqwZKdgy2Emf1y cLKSfqn5yNBJ6mTEdtWwvs7 F5hVTnJFNelKNsxpMiKYDeV mQ1ZHdwKX4vqd77WDUtABZ3 tu8jzWBwaCotsrQxgDWkBWy jO2GlOQEej225LAGoA0SoLY Hgh9P1fhRyAvPlBBUkiIC2y gP1OCZyAGr6yQRcalR4skAa vPEqK5qzsZ39NuYvmCEdT2V pyD84MfSvgMSaT7UavW98Ru QymJIeL8ZrqZ03MiMuvERaG WLseDAdGd4rsTAcsPRaq1Hf hMOeZBkjA73sh281MYYnpaT cL8vlzMBclikzeXMgyooyYV xzchZ3VXCjZCKgQSlmTDSoD GZzMjBcbGFuZzEwMzNcaGlj fXfmAEnfAtFzQXFbQCleH6b cZjBcZnMyMCBBLiAgUmVjZW k4ZXWylQ4xXj2gpLGlrX1ll IVzBCvpUVA7mWKyRFFfGLEf HXYsTR53G3JqoE3ep2OeBVV sn31eJP9sJEPwdPKpINpbqe FsdmUgbWFzcyIgaXMgYSAxL mCpP26loZ5oeUHuM5TbXVR1 IDAuMyBjbSBpbiBkaWFtZXR etuP2ZY5nkKuppfY0eWWyaL VbTZrtvONqOPbtTGT2Tv8bx KHtNLEudkN1j1HwJHueDCOl p1ExcUQwBNOlIbvdIDCzsDG xPAZibfFztVyxsV2mRyPwFj MyNFxwbGFpblxmMVxmczIwX QoaqyjuXWUdSGspO5ypMqLz YKIrnWreXRlbs4HaGVQqVIH fHyKpDLGqPLNde4luDI62RN xwbGFpblxmMFxmczIwXGxhb zesTGLiFVtzS7zfSqBkJYSx tMecSYjzn8JuGHJsPCFjRqU ccGFyfQ== MICROSCOPIC f0dksBLtLYEzdFB6EoNoAZN DESCRIPTION (test code qj2deh1TftSDpiJVqZSgywB = 3371) NtmyYbyq35oSZ1rX88DB2zZ FXgVsL3PINamwP9Wem8GYVs WPUboDQdX886h9cmg3sssiD eqXI3zGaqKOPkymksZwF3JL zrLLRuntoeJMx0GRffKIMql JC3YTKenQDyH0TkXYTtVW7s fff9YCE2MWomWLMcOnR3ACI tlKMiWOHiyOgtGCvgm676PU X8IiFsNOPcpfKzfAtsjY6hF iBqGJWZFAEsx3WfLEMeUGPg cn0= SPECIAL STUDIES (test d6nphZRuNFQghHV1PjDhUMO code = 3376) fk1iju5ZxqNCreTYdTXhukR OqktUxyi34fGL4qU38SF6qH FWgExX9KUQxreD6Uem4MAUq RFZezCLqT303PKVbJVIshZl wroi5tT95QQFdyT0ghHEaST wovqLgDBpjdiZphtSnXbu6A KA6kEkjABFhhqjvCmC9QVlp QGPszmlsTGh3NGmoIDLknNE 7NSPdaCYsJ3QmBDFbVD8mlq a5GNW3AFxfEXMdIuR7XWDcx MEzXBUupTuvUVoam257BQN5 LrSnVLVhzjCkdAsjsR8yDbF cZnMyMlxjZjEgVGhlIGludG GexNVueJQ3pU2uCW8xRMRgc UZdG3DvCXNsudMgjRBcSYQ0 xOFyvNBaPV6hHTpgmHZsb1o jn2XfH9hbgZnfsJK8HU1hGJ OdYAQgVSuwm0VkjW3aOgqyD JRfQ0JbSTJSJ5UHZUEbGMAV Fz7CNgYVTpJuLuZONq2mNZj NUywgQUZCXHBhclxwYXJkXG AqURYIu253sy9jZHKmbWVaw kISqGRitN3cPWudZWbfMKeu gJOoSOazc5rvUIXhg1o0tTO zXWEyebTvq6djIEwgpvHmHY KgwHJgoTBbSZXff43wBNvry YaasYsdMDLwz9IqcHjql6Nb YwVzHNryl9LoM43qgUTofEM ltLtlVXJbxyMvEWXrr56xj6 qdRIKjTxN5yOVonZZ4oOAla PMet5FikEtcYZDgt4xpSZYu li0eaoxlrNRar8EpxH4dpxv zAEbdiJHkjmLaEYLdi1j4iD JnKXYxOQFjILgfkQs8USRxv 528kr6dodJ5oWLrWFC2QMxa YWJsZSBhcmUgZXZhbHVhdGV bMEAdwzApOZOoadCQdI24bv 1fmBU4v1QbMB7ml3RcaAB3B WNobmljYWwgdGVzdGluZyB3 VGAffUOrYw9gkHYvBJG2XTR soXnljiEPcA6yQQNxHWv0HV ObYzHgKvyuoiTMXHAqM3JuU TPemwXeuzczPJD5fT4cg8w1 AByoCm4wALNdizncx2ccasD zkTShx5VkXALrvdKgn7BoPI EsyzSvpPPwJAYgeqUmfx6pm zQiHZAmMYSkD4IkqsoqhOoc waA6BKHsAYQhxHDrqQpeETF bSFs6XAdysvSxe4QdWgHcmp TpiMKnohHxRX0hZEBzsCFeg aSgYMB2CTSyDLWEOqRyKNFz g2MzBK4qEIHpkJplRYXnrU4 ly9JyENKyr91rYJEsUUNHUL EgaGFzIGRldGVybWluZWQgd SmowGZziEWwMULaIUGmQU5n HZKhfeQfyAZqu5LbiTZrvlD lp0HtxmDrNJMiIGU7GbFQjM UeiTNizVTolmO8q0MjEIBgg yNmlCzicZMvvJStdEPkk8Vn nh4nPGVfn2ycnSdkGZ3mrJO iZSByZWdhcmRlZCBhcyBpbn Pgl7WbZ5C4xJ4qSYlpj3DaU g1cYPBpy3LjcuKcEtRWeWgv MGhyMb3kQAZradjecYAwT3W ydGlmaWVkIHVuZGVyIHRoZS DGvIejtHNjxLOMTVOmvzZ3b 7R5HFwenLGcgdSuSP39XXWw MF4hpKZcfMKem3LsYIu7XRD wG0sFAI82UZreQEUiiGFcqS wgdWOeXVXyGESudpVkqg5gn FyvwXOxo87ruSD6cZC6KIDc xK4xP5ZmIOmgId4ySIMfbrp hzNChaMkjLy5gqWCitD== Gross assessment was [facility] performed at ([facility], code = 2777) Department of Pathology, [address] [place] [address], Technical component [facility] was performed at ([facility], code = 2778) Department of Pathology, [address] [place] [id number], Professional component [facility] was performed at ([facility], code = 2779) Department of Pathology, [address] [place] [address], [facility] [id number] 15:29:08 Test Item Value Reference Range Interpretation Comments Case Report (test code Surgical Pathology = 104) Report Case: [id number] Authorizing Provider: Logan Russo MD Collected: 06/18/2021 11:41 AM Ordering Location: [facility] Received: 06/19/2021 03:44 PM PERIOPERATIVE SERVICES Pathologist: Tom Paige MD Specimen: Mass, MITRAL VALVE MASS- for MICROBIOLOGY then pls send to Pathology DIAGNOSIS (test code = [id number] 3220) uZzEwMzNcZnRuYmpcdWMxIH tccnRmMVxlcGljOTYwMVxhb eZcGTLnaLUlA5HmbiddCEqe ZN7oND1alHeywZJhfSGyXMU iMeLzm8tim100uULam4qqOH CPsrfodDr5aKawW68je4B5H yaiJ05tnHAsRAM6OQBcMEMw sISqOJPhEZQ3VMAunLPaP8p vOKJwXB8iqzhtJGzqCNbwOL AvhLH1DZIphTHhI3DxTBYuE VaoFKIwtse1HtNoOi0paMLr eTcyMFxwYXJkXHBsYWluXGZ rEaWwNE3pQIJCBzFjHF3SEV JBTCBWQUxWRSwgREVCUklER B9IHnUpMQ1XHLGOZJWDOfri cGFyIEZJQlJJTiwgQUNVVEU vSE0NUYDLRVRWG4QLZIKCU8 IGA4AJLINAXzIzT1EMH4aFW WMUWEuAUe2pvGYpWCBOVOWN CYyiG0PBGJ2GCBOIUcNQIaO QX1WEV2SRSM8ZD2PIIKOFSp DJGK8SAJ6KKHEONAXOCjCHH RJHHmHTO7mGS6irCBhmWHDv C25MVmGHSDXOY94zZ1kPHLB BWFQWM2WWD1sWR4uYXFxsN1 OOGGjCMyHWPrVZPSVKWE9VB dAGXG2nHHZifc24MKC3ZuHa h7L4QUM3IEAiLTFrn4diRAC mbGFuZzEwMzNcZnRuYmpcdW EbPSSzAbPkm7upo564pMCpt 0zzHCTyKpP7iETwWPJrtEHb C080TVExWTiyx3zmm2VvHPC gzJQez5N8CIBPadbmlGy9jO daM09ap7B0UdegP0ycDOSvT KWuI1CaFK1oSIZpXvk4CSQ5 IUV0NDTnDWFgM7VgBR0bTGW uaNVuZYy3c1ioxFrtNPAaRM W0h3yzVIttzmPkGE0yfg8mc Pi4o9guqhJbCLIhICQioQJQ RZByX0UkcGjoZe5xiRl7fLf oCedjXYL4Yam5RX7qtq75zg d2eEiaQFIvktljMrL8AZonC IGcnzdiXPe5BLeqPJJdoVF1 LHRkbXHhF4KlKIYrBS4nizy 8QRV8MUmmRBZwXzJ0KOXfeZ SnBALuyEgjUVyte676FXM5Q jYtWP9xO2Fqp2G0wI7nwBFk VDKtpQGdZjUiKQDcrl2akVO fXUzup7TzEHE8ujV9fWOafE MrHRFfGhJ6ZCegKO8ejo49L WCjYXZ9qy7gbEEmdLkugzVe iXHqYMurE9EySWCoa652LXR xM9ThLJGtz2O0jbClBfZuDB PsyDF8rtZ1VYCxSE4erpflw 9nfAKupTVwyOWZtjpU8ggV7 SCIvgUNkV8YpbD0xDHBgRK0 carhfh8sdCMB2DLcgXYRyTY B0JcUnNRWhl4Szusa6NvLwh 2LeyJHqJJhrQ59af799HXAi idGnI1tpjXXotqgquLKhudg vMKtbmbZ9DXCeFVvmwkdtBC WjBZokU1xzQfGwKFXvbVklE Lxvv9UfUXOxNMUtNpUfuBQc CSNcMro7PIXebPZiOHWqTjC hT0uzqlhwHpJVNNWbw2nhP0 nxmQOGnGSlV3ZqIWmkszSrM WatBGsfVfEpIGAfRC52GAZ3 REBwds09 CPT Code(s) (test code o9vrgECeZFChiKU2MoRtQUG = 3357) ge0iyv6VwuDNzmIFuTRokcH FpqdLgkm46pXY9yQ95BC9xC OMmPmE6DMYrbuG6Nem9ZJMh ZBMwuELiE984v7akw7ncllL qdHJ7iRomFSKwpigeOpZ9XC sfJKGdqlovCBp9TGiuQNIdf IM4XPKjyFBnG5YkABSjNZ3p roj4HFW7FXzvRCTbEmY8AQF ftDXiZKFzbUvbCBfbr315FR Z7VmVfFUWdnrVuxQrtpY3oU lWiIBT7ORVtIBbjPVhtXMTM O4qaAQE3 CLINICAL HISTORY (test v0lakKCeXIMfgUC1FrDaKKW code = 3356) oc9kcp0UpsFShcZTiYQgnoB YbalDgiw68oYS4bY32HK4bJ PEtHnT4PUKknyW0Hig7DTOx UOPnzLNiF203r0plg8tlntY xoHB6vPzxXGGqqqcyUbT5LZ roORZoqtsrMCh5ZTlfSWIgb GP4QLMisZCwR2VxXRRqRA8j psl6MXU2BUbqRQIcAlV9TST qfTBiHBVnaJtwOScbq137UF H2VbPoSBZmodKdrIlutJ1aB cKaUYLMewKuU2VlBQk5cEPy cGFyfQ== SPECIMEN SOURCE (test d2lnbCUwQPOxqDS8JtHsWNJ code = 3377) ac2fcf0ExpHGumSHsGTgdbQ EkywQmdl31mGT6zW45RS0tF XYoEoD9GABdpoZ4Wbe2KNTm GQWslYIeF645k2jwe9jinwX ziUD2nTkkZFTwefxjWnK5TY kcHAFanyaaNZt3DMivFMCwj RB3PREiwMJlY6AkTYIlXD4k ohl9VTO3SKnjMNEfVtS3FCJ rcZPqEBQhlGnkHBztv692KX G4LxGbIIIcslEbaUcbzG1wV nMyMCBNaXRyYWwgdmFsdmVc cGFyfQ== GROSS DESCRIPTION t6sdwCVoSVDnaSShHlHwHED (test code = 3366) wYXXtj8kpNFMpbAJcVhMkJy NcZnRuYmpcdWMxXGRlZmYwe 1icj869iYMov6ftRGJoGjQ5 rVSiUXHfiLIvR053AYFzKJg ce4dpn5MrTIKjzLGzx5A3GP KSgcspkCj1mDcvG00pr2V8S taiN2beLSPbECZeB6OfUU7b OLImDfm7UFL2SIE2PSDxERD wM0IlSX3iUKCgoTHwKDv0v2 scvWylIMVpHCK0x8lvGStkk sZuMA3aoa6xlUt4c1mfooOq YYRvQUNitUBUKRPpB3GrfQp dKm7ofNb0wAxeRwquSBT2Rp q7YB2ckr08tvo3yIueIHLqf jmdZsG5BCpsXIThcjytLZi0 MFxtYXJnbDcyMFxtYXJncjc yMFxtYXJndDcyMFxtYXJnYj yxXJvhSEMgWMU0CUway678B LA3FNmit1bjv6fcqACcDxt5 BQItZlUjUfciQPyud5Lkx8h zQPWbsa1kKPS6oASntIrcd1 E4dEXfJMSxdXVfizMbQDBvC zN0JOosVA2xxh03WYXkTOZ5 ih3ryBTuwFdoztVxjACgIPz rT8XuAGMvu677AZLxS0QwAD Oym4K8uaYkRkBkYSHsrQV6j nR0EEPxYFz6oRBdueE8lsYu yVJwR7qaqN05IlPsjGDwC4V wdL25MaAefLIrW9XxxH92Wc BgoIYdC7TqvL29EnNspDUhR FXpyZAtCd6uiQKqxSCiq8Ab uDIkFQrgR78dm656TQYbcsC zF4lztPAsojbvzOMktdlhPB zbwqQ8UXNoSGXfOAlpHSFjE GZzMjBcbGFuZzEwMzNcaGlj tJdgYTqcQxDiJCSuKEdkM0i cZjBcZnMyMCBBLiAgUmVjZW k9TRVmwH7jWe8vwNVjlY5cl ERpADpwFLO3aAZnQXEpGJJw WDZkVE10N8XxkX3ea3EaBDT zt43nBQ0vEPJxlHLmKGlsmf FsdmUgbWFzcyIgaXMgYSAxL eQlW62qyD2hdMBvX9CoMJA9 IDAuMyBjbSBpbiBkaWFtZXR twdE0MN5bdRawkmT8mAXenH HnVLrshRWdXAyuCGY5Dv3ka JPyOAZjksF0l4ElENyxIKIv c5QfgGJlZDEiBnkgOCAtmFZ qGSBxcyQweHjzbS1rRaRlQa MyNFxwbGFpblxmMVxmczIwX ZwcktybKGRcEVnxD9bzZzDn NVYinAznHJqvf6UmGMGzYTF lQuArSHExPGPxw2ddHI38AZ xwbGFpblxmMFxmczIwXGxhb zlqFARjCFbwP8ykRcVyHAFn hDawHLsey5TnCQHcYYGeJwE ccGFyfQ== MICROSCOPIC f2uudRYfUFVgsJP8UwIlMLO DESCRIPTION (test code zr4shq5XkjPSgiWEqIAqpsN = 3371) NebkMfhb61jZP3eP10IE2mX HXoVeL0AKPduiR2Scj4FPRc WQKggHNeR941e2uhg2ginzD uwIE6pYecVLSjipcpCyU3LR bmYYWcylkrPSc0WToqCPEni GG6MONfmSLfW8OfENFiRZ5h otv9EOO0SCeeIHAvWrI3YVJ odTKfOFAuaJxdKXtsc598WN S5ZwPfPZPnabXdwQlkkZ7iS fNxPNXUPMTuj4YxAJVaBEXx cn0= SPECIAL STUDIES (test x9eiqNCjILTreRU0JyHmNLO code = 3376) dq4emm4YgyDCivPRtZYvsnY HhrqNtoe31hTE0nP65EW8sA ZTeLdW1IKVzflU5Qhi0TKYx JKNybGCtK598PBQiUKHqcBj lfow4sE06QGLrxA5cbXWpAM vyhjHoYBlsfgQofgFcDlr8M YA5vGxzLBFrnirlFaM8VOcz SUVmnecbEYj7CGvdDZZezUB 4AUHabKWwV5TfJSGzYQ1riu y5KSR3AQyxZEWyDcK8BFPpf KKlFDGnyFueIZmwt972YZC9 ThDnJPOshwGisRfuwJ1lMaK cZnMyMlxjZjEgVGhlIGludG JpiXYlhDY0yK1oOW9uVXUku DUpS5ZhGYSugmYnsFFmORE2 kNKhlXJeEQ2wWCbluMZth3g cs2ZxA3qdmNkgiOB7XO6rLD JhDWWuQTijv9UndX2rAngbE WBhW8TpHFKIX2PIFDRvCCQQ Bi8NHuQLBzPnLoFQKz4tMTs NUywgQUZCXHBhclxwYXJkXG XqPEITg212yq4eUYJwxYFom oDIcQYzsB3fYJheGAlcLKzs pUCbKLaog6rgQDOoi2l3tCL sLYPvgqYju1miRHbgnpBwJQ XooZZieOYxSZTmv96eMYptg RukrYxlRGKcu5GwoHnlf2Xs GkKiULyip0BdN10auXTdhOE jjFusITVepdKmBPOqc72ni4 bxVDTmIgO3qWBvhPV5pTZks QDhy8TulIodWCOoj2zrZSLs om4wkpzeyMPoh0JmgT1gbms wRKwktFMargEzZFMgk0i7iS PxKHMsTYUwNPxbxEv5UIJzy 554oa3axoY9cZVwGAW2MUps YWJsZSBhcmUgZXZhbHVhdGV hNAXtoqMhCIApfvQOcS81qz 5hfQY9z9DyYT6wo2VlcCK3P WNobmljYWwgdGVzdGluZyB3 WWTehVPkSf0rvFLmRTV3LJF klLqjfrVQqZ9yGNLnDTg2GO IlJjCiNpbyvuRORINhO0MtZ DAfeeTqkowcVAZ1bP0dn9n6 WZykWq0sAWOptwzae6mofrU piCLyg4EyKYNbmuKcd5YoVZ XjehItkRFsTVBcdjUfmn2bn sUbWFVsEMCoQ4KafwmnfOro suW0JLCmOCYeaRFgmBqjGRV xNLj8KVttgdRzn8BbKzIluh PrrDRsesWqZX8yVFWyiMWxe yAuOOU1KTVdKGOXJgWuPLBx p7XdUE8eEFPwxPtwRUZrhR0 bs0AaWVNgo20dCXFvAWZVSK EgaGFzIGRldGVybWluZWQgd FizqWVrzQOcSCVxMQBcFR9u PXKehzXtsCUew9IzzWMmdyA uu3ImacMfXNPeWIS8SsBBqH JgxNUmqHSwjaF9w9HrWWXus fVhhXvcxNVdcCXlhCHfa1Vz ei7hIHRtq6ixiCfzCG2plHV iZSByZWdhcmRlZCBhcyBpbn Qed4IvL7Z0dK0kSKthk3RnZ t8hRCEbd8DqejWbHfRCdWay XZglZg4jULHfbehqaLGmY6Y ydGlmaWVkIHVuZGVyIHRoZS MXnTjytVRzqIHTRKHchaX9l 7D9LFdhnWMfbqIgFQ01ONSo TI2gpACzkJBfo4AvYId3PUB xC1oNDS99XLwrRRQqdRSubL umcHJkTLBeNUGfcqGkqf0sb UokoKHfy27caUU4iOW9DZTh dU7dP5NbIKebNp0mCTMcmkg trREukRcqIn8fiKLsnH== Gross assessment was [facility] performed at ([facility], code = 2777) Department of Pathology, [address] [place] [address], Technical component [facility] was performed at ([facility], code = 2778) Department of Pathology, [address] [place] [id number], Professional component [facility] was performed at ([facility], code = 2779) Department of Pathology, [address] [place] [id number], [facility] [id number] 15:29:08 Test Item Value Reference Range Interpretation Comments Case Report (test code Surgical Pathology = 104) Report Case: [id number] Authorizing Provider: Logan Russo MD Collected: 06/18/2021 11:41 AM Ordering Location: [facility] Received: 06/19/2021 03:44 PM PERIOPERATIVE SERVICES Pathologist: Tom Paige MD Specimen: Mass, MITRAL VALVE MASS- for MICROBIOLOGY then pls send to Pathology DIAGNOSIS (test code = [id number] 3220) uZzEwMzNcZnRuYmpcdWMxIH tccnRmMVxlcGljOTYwMVxhb nXtVXNdxCXgK8GfvmeeJUiu XV5dOH3mzUgbtMOvnHSqZRM bOvCdp1wch655vAIav7gvIN MXhlpwvNn9kIotN31cu5G9Y ggaJ41eoVGrEWP3THRrLIKb fHOcYLWnTTN6BSBdgATgO1n rINSfZX3qpgyrHPdrRJbtBW FblOK3VCLjoDPqT2YaDCSaI XxgCMFkruh6BwCkRm6gsEYx eTcyMFxwYXJkXHBsYWluXGZ bLuUzPC5rNVIALoIgNF2LAP JBTCBWQUxWRSwgREVCUklER M4RViHuNH9TCYADOKVVUvrf cGFyIEZJQlJJTiwgQUNVVEU mIC6ZWUIEGVVOB3VCHKMSH2 XZW1LNJNTMIuApV3LEJ9oOS GCMIUiWWi4zmAClIYOBQUJV HAskV7XQPQ0EQQWABbFOEjS UF5DDD0IKHG6ZW9OUFSKFAr KWOV1BPP3BUZDCRSHBNmTUR SSHCiMOC3eWS0plXVtiUKRi N78SXcNEOAOSX62gG3hGJMG SGFLIN2FTZ4kWH9aTZHiwX5 WNEIzPMnXQOlXSLGQETG8IM zPYYC9mUMZpgz68VIS5TuZd l9B8ZLY1MBQbAZJnj9nlHEF mbGFuZzEwMzNcZnRuYmpcdW RoNSMcEuZzv5oai628hLMny 3tmYFCjMuN8dJQePMCzoOTo N248FWDcGAkvj2gdc0NxAWD tzCKsx1Y1VLKEzibaeGw9oW bbP98vo3W4VrlrA2ekENLlH MLiI2InBM6jVDHrNxr1WJD4 FAL7WAEgSUFhN0AyOI9cIVY zuQWcJCq2u9tabQwcENJePR J9n7olELlovxGuMP3zpm2hh No9n5pbtnHxHNSiQOVuzRWY VFIfJ4HwpLcpAt1sdCm6qQv uVwwqNNE5Jlw5TF3cux59gg e0lDxhKMQjzuviRmG8ONkzO EFgiokeYOj1UFkdEYIezQL8 AFXohLFpA0DhAHPsVC6vjkr 4TXS3WOuoPNXpBgD5UJIsrA OmAOUddGoaTXnrs220PQE3N gDwPM3xY7Aun0D3cL2qyDKc ZMPbwTQpXuWyDFPayw9snIY dUSqnw9UjBPV8klW7oDLqbJ TfBEFoIgN8WGfiES6jio87M ZJbUMZ6qo0rkYGzsEpjnmJr dRDdYOpaV2HvCMHub563DPZ cQ6CeWDTkw7U6mfRnQzNuEB SmcSC8miF7LMEhEL2uyxiza 2xqVZytEUsvLPTpofZ8qmT6 CJNbgGUdX3AakS3vRFGyRK5 pkzfzq9inQSY1PAgpDFIzZN L7DoFsVHZuy1Gashz4SiSxa 3VerVCtOHxfQ29yn823WLQk qmLaR7lhdKFechyehOPuosu wYQxwojR8IJKhTApboxbzUF LcKCzdN4rxVkZnYBTwsSllV Nmgs1ZuBAKqPREzExNctQUt EIRfSuy1ORLosEWcBDAcJtF hG7mnzortKwARCNLea5fcH2 xccSVXwPMgP0TyZLhtwjLmT MnmPMbbMyXqYCUkKB18MHH8 APBdjv20 CPT Code(s) (test code v7tgzJWxODXjcTA3JvVyDGD = 3357) lq8udy1NfqIAymGDeNGwdkM IabqUwum95xCA6lI23JV2cB WCxVuR4JTIdftG8Mfu2FRDg FRFugCMyT744v9mpq4evymB ptAH0dVnfCQNntagiOnJ6CT lsGIFfwrepKKu3ANrqODCqo RS0TJJzlARlN1BpWPXpYA0g ioh0AQI5RRuqDANhLwF7TFQ ahFDfSJMzhBxdHNhnh498ME M7EfWsAEGtuiJtnVporP5zG jYtQDF5LAQbBZhrXUadOZDI C7rwLSM0 CLINICAL HISTORY (test d5myzAStJYColSW3LlNqVBH code = 3356) ow3wps9QpcSNxxURiSAsljW XywkIbct14lAD4bF24VL5mR LWjGxV6ZYJsyoP1Bna4CPAi YTXyaKAwL569l8ubj9xosrE xnGM7cCbmOUHixlxeCjR6LC diCROclgljFHa1FOdnJBPee NM2FGSfjQZpB2DlWKFbCX7d qko4KRS9AAkrCZNgVdF7JEI yqDYbAZOjsAyxLZtar638AU E9BvAgCVMsnqZedUllgN5mA dKyNWTXuaJaT2FuEWu4dDBg cGFyfQ== SPECIMEN SOURCE (test q6yruZLnBPHnhVI1TqTiNDB code = 3377) in5kas4JomDPemWVuWBxdpN WfmzJvcm26hHX4dF95OL9oD QGhZfB5YVUfluW2Dqg5OULe IVShzMHcY948q9zzx3guexU biGX6gQleEQLjscpwGxJ5QF myTBKsoovaBCj1DNjiPDHfk SV5BRWxjBClP0OkFCVeUS6a qsu4QRN4ZRfjRZWhBmC3QAB urUXlEDPcjKmzXFhjx055QQ O1ZhEzUCFyuxNgfMnqnZ4yU nMyMCBNaXRyYWwgdmFsdmVc cGFyfQ== GROSS DESCRIPTION s2szgAImYMQjrTUtYoEpYGY (test code = 3366) bMBNhy4txVDFwdEGnGrJsLw NcZnRuYmpcdWMxXGRlZmYwe 6nji207oJWbo2ftWGUsHiU9 kJBfUMNmsTQiC917INHbVPi bs1sfq7ZlZZEygFRgq3R0PE JXnxetyLr2gOgkO24go9J9I nyqA2qsSFAxLJXoK3ReHK4r OPZhGhp6KFS3QGJ1FTHoPRI xF7GmCY8qLUQkkIFaBTw2y9 qekMftETFsKLW2n5vsHCnrs pYmPG0jzg3ixCo7g3coiaQm WIEcYJOplEVKQCDkC2DjtGm aNj2adOy7fSweIisfLUP6Jf s6ZA7jaj50phi7cVdqFMSqd izwTyK4EBqfEGAknygmSMf4 MFxtYXJnbDcyMFxtYXJncjc yMFxtYXJndDcyMFxtYXJnYj gjYLnmBTSzTRD0EDbtu656E WI9EKkhc8svg2gfzVDpCyq7 ADQtQoGqHstsSTnqd2Ylu6g wCQWkmg2eYGU3sLVeiPtwp1 Z6rOVsHXDhcAAtziPrHTLrQ xN8ZNxgIH9ygh48KWCjGGK2 hl7ysRRjqQguodHfrXAcOPv lH8KcBJTmn471WZZuX5ZkNX Mvs3F7snOaPtYvNDVpaBJ9z gQ4VREzXXw3tWCaffX6rlRx uOKkW0maeV79DrRfsCSsI6A bcE69OkPmqZZhX5NsaM51Si JdqENyF8HsuZ42UwPpqEQkK ZFmjJSmIh8ceSTeaXPjg6We wPHzQGkxI99lm985YTMnqvB jI9rfdQZvtgbhxJGjxyhkRH piunQ8XOWgORQdEBalAEXwT GZzMjBcbGFuZzEwMzNcaGlj mQufQYkqXgFuLMEhWXqoY1d cZjBcZnMyMCBBLiAgUmVjZW y4SMStrI4qJv1laQTlnR1cr OIpUXpnBCC9dKSjYPKjKSGu RUJeRX12V1YzeS2zw5XeSEF by56oCP6aDFTenAKmJZklnh FsdmUgbWFzcyIgaXMgYSAxL yYrU85glE2wmKUwE2VcKSZ6 IDAuMyBjbSBpbiBkaWFtZXR mseZ7MM5riFlwnsF4hGSojE RiZIaebCJrLKocOAJ8Le4bn YKuIBAkkpX2m6WgHPruIILs u2MqaEUiEXDaIvbsXZMnyYH rPTWpppUmhMiamT1aLcStFw MyNFxwbGFpblxmMVxmczIwX JhinrziRLTyTAnzJ9wpXyWc GSSpjLlmHYldu8CnHCRbBDV aRhFnCPUlKIYvx6xfYL94NT xwbGFpblxmMFxmczIwXGxhb gqvAQSiUKatM9gbEwPhKKFh oYswAAjbg3XfIIEbJYGsEuN ccGFyfQ== MICROSCOPIC r5qttTOcSPTmmTD1EiBcWFJ DESCRIPTION (test code ph0lba0RnpDChkFCjBMisaC = 3371) VzheWhai96bVM2yD90MI2jP ZZtRiS9DVWiyrO8Kep2XVKx XJIjjUJlI336a8bsl9aebgR kyVH9aBgwIPQrssshKvI9BE vpGQTzxtsoQSm6WPzdAPAme QE1BIIplPLpT3KsQDHcQD0q wui4YEG2BOmtBRMwGqK7WMZ meDZoDGSzkJvePUtmr850IK P3IsYuLUZlyhKzdXqkiB3sP cNmCJZUPBMeh1OoBKIbCHTz cn0= SPECIAL STUDIES (test f5lrbQWcKWPazXC4CrLjKAT code = 3376) aa4uan6VeaGKcfWDyHGctmI AsuuBxpm19jSU4mE69MI9sK VMeAvR0MORdcrA2Uvy2QDRy DPCqnTDoV156PVPvFRSguRv qcwo7bM17HGVdeY3qkMWaLY dzufXoDJcgphJrbwVyQbz3J WY1nBauHFVcfulnBmK8ZLaq RHVqvnvtIAa0FTotFKOtaIQ 6EYBqyEOkE4SrRLNuOB7ynh j5PLT8BStuCLIdEhI4KAYqq CAeORSezVgbGMewr819RZR0 YbJwUZJusjYkxOeouQ8yPqG cZnMyMlxjZjEgVGhlIGludG KktKFeoEI8jJ4uXQ8wLTIwf QWlQ3BrRUDrusZxdWLdYSZ6 qGMxvYDlCM1fHQuhcZSnl1m ge9KhK3wduFksxLP2WH3pVD FjAOKePIxbh5FwlS4pQynnW SKoW4JaWGUYC3HOQEVaWBJG Ur4CTiTMStSxXiGIXc1sZYa NUywgQUZCXHBhclxwYXJkXG TiJPIKu475pg5sZWUvhOOhs vOZcQSpyF1nOSiwXQwqAHvh wHKlIQprr1bqZVMer6h4uOT jAMJuciYss4zoWCtgodMjWH AljHVrdGGaDYEkx49lJEsns BypkZxlVSCkv9EhdKkun0Fk BmJnAPrbc5VdV97moJHtaXQ rgCvcXDNuohYrXGQbf08cq0 oaDKMtDwO8lGMyiJB4oAJwo OPtj5YbcStoNYQmh3puPNZj qa1hwlozkCLrm9UyeP6nibr tGQxtuAUlhhFuMBIoa7e6jN KlLMZnELAfWUuunKf3AHUee 581fe5hidI6zNVhFOI3JEvu YWJsZSBhcmUgZXZhbHVhdGV bRUFzsqSnZNPtzwYVgF55co 6ccYL4p9VyOM7ib8KxdQT8Z WNobmljYWwgdGVzdGluZyB3 RLJzySLqRs8iiPKwLJX6TRS prYrnusLToP5hFNXpJOu9EQ SvNiQmYmkipiRBOSQtT9HtH OHhcoEdoarbXTR4lV9zx9l3 LCzzCv7gLCWphguso6szqcW qxIKix7DvGLZkqfRhl8YwSG YqqvSsuZGoUYAnbyYzdi9hd yQyWQTgEBKaG4DswvikwYet rfU1MKLeKEKhqAMqzUupDSV qAAj7HQaqttVfs7QfJjEunr VzhHPexdVgOH8lCQHomTQea dLxLTN3BMAuQVJEWnDeFRXd s9NnIR6iPNQhwLgzNDAsnL1 er3ZmYOAfn58zLYRiXBODGL EgaGFzIGRldGVybWluZWQgd YhysPHscNLtYMPcFLJbPL0u FEVdncMwvNQas6VupMTmvkS xu2SeqhNdJNYhIHN8FvOEaI OamPEcsTCvxgS3u8RjQXEqx cUwqIvonMMdqVOmtNQxt6Mf rk3yWPOvy6riiBovDT5fiPC iZSByZWdhcmRlZCBhcyBpbn Twa9ShO9F3zL0wXOovp2QiR e9xWPDwk8ZwicUnMtGBvWln SGfrFy8bCBVmkzkwoATgQ1H ydGlmaWVkIHVuZGVyIHRoZS PFfPkxpEMznFOKORZdjzZ8u 5S0XRtzwXPgkeSzCR38FRQy LS2bbGDipAJug7BiDQk3SZB eN8sOKP62DTapVIBtvFHujB aojUWyAVEpEEDoyiXiao8ey TuclAGbf67uuHB9bYY6RZFl sP8jI4XhYCmpCu5cTYJzlro kkOLmlSfpJv0vzWNsrM== Gross assessment was [facility] performed at ([facility], code = 2777) Department of Pathology, [address] [place] [address], Technical component [facility] was performed at ([facility], code = 2778) Department of Pathology, [address] [place] [address], Professional component [facility] was performed at ([facility], code = 2779) Department of Pathology, [address] [place] [address], [facility] Center[facility]ise [id number] 15:29:08 Test Item Value Reference Range Interpretation Comments Case Report (test code Surgical Pathology = 104) Report Case: [id number] Authorizing Provider: Logan Russo MD Collected: 06/18/2021 11:41 AM Ordering Location: [facility] Received: 06/19/2021 03:44 PM PERIOPERATIVE SERVICES Pathologist: Tom Paige MD Specimen: Mass, MITRAL VALVE MASS- for MICROBIOLOGY then pls send to Pathology DIAGNOSIS (test code = [id number] 3220) uZzEwMzNcZnRuYmpcdWMxIH tccnRmMVxlcGljOTYwMVxhb oWzUCVxzJLgL2EkrnfqRRah XD4qDO3zqNuehBEppBDfQVG iCyYqg8lju262mLUsu4kjJH FRrhvsuAh9eUgmM41ld8I0X vajM26mhDWpNVZ5HOTyFXKo cPOrRJOlCZI2OZEubSCsP9c rHTVrXZ5vygqsEJodKKsqQW EeyPI3YRXcqWEfK7YkHYAkL NeiYKHuden5QqZhOz1dqABs eTcyMFxwYXJkXHBsYWluXGZ rWrJcCL0cMPPPFhHeXP2QWA JBTCBWQUxWRSwgREVCUklER Y5VRlAzMX4FAPTBXHOBZxfg cGFyIEZJQlJJTiwgQUNVVEU zFA4IBUBGZDVWE8UOTJDMW2 RAN3JEIBRWHvUsR5ULS7zYM TTGKFhTTo2wjWGsPUSIIEIA FFzcE5GRBF1VMGPQVqBKKuV CG3ZZC9GKRI8CI8LGQARUQe QXYG8OIV8EVTLOUTLEFmVDG BCBEvAYF6cZI6iuGMabNDXo H33EWxFCDDJAJ47iJ4nNUPW UEJZTA2TJJ0mCS1sJTUahO0 LBPLgIFkOFGiFRXAIWDY5MB wMEIO7mAQKknu64JLM0JkWm m9R7GVQ4EPUrVRSka4sqAQD mbGFuZzEwMzNcZnRuYmpcdW ZpNMYaTyGtz3osw268rDLxn 8vfMFFkIfR8oBCkITZecBUt T803OFPzEAdfv3omk8VcNOK zgTGsl7R8OEJZtajjaAz0aL enF75qq6H9VxwmW7mvWCJeL TSzH0JyRU8nBJUkOzh6VGZ1 DAV6IKBxIKUgF1ChSW9hWKR eaGLeCCq2h0rikRvfUOWcTV F1w6dgDCxpkaNuWB6vgp9ym Pg0f3aadrUfISLwMSXmlITG MXYaR3VvhSzlOi8gjSg3nOw wSuufOPA5Xqc8UG8fzi94iz h2hJskICIzzfhbVlT2JMyiF RKfnvacCRg5IXpcFRNtwEP6 IAEcoZYqL8LxUEGoEX9zjjt 6WJH7FHowBLFdXtX6GBUyeU PbQAHgyMxoCCiom845PPR7F uPwGS3nC2Pti6I8hJ2eyYEc BOSwrJEmAaErBNMxix9lxSY bZVycr3PtXZM1dtU3bNRccR LcYMIkAiV5HOfhRQ1sxz07B OMvVJB0cm5wrNRoeTkhnpIk bWWdMPezJ7GmRZUgv520YKT yZ9JeCLPfr0D8kuNiSpJtRA YqhZM5euO5MRLyBM6gltxiy 5iaFGuxZHnsFPMolzV5xaF3 ABDfmJOxV0IaeS6oLGDwOL2 hwrdtn8smSCZ8FYduQAKbCP W3JxHjVZUpe9Ngvag9KsUeq 2HrlNWaMSpjA47jc516XFIj zhQkY9lrmNVwptrjvWQxtmg mRMceegC3HQSfFTingobcHK LcLWvgK0naQlXuUYHvaMizP Mixt1StWJVeXAOpKgGnjOKg TLNvGmw3JIAzqDHnBBXxHqX rQ9eikrdpCoLGYYHol6hyJ1 osdYEBkUJqG0PoZMishiTwQ RhmZRevLhZyATImCC57FAC6 MRQjrc44 CPT Code(s) (test code w6adpHNqOSFccGM6ZrYnAIJ = 3357) la1sgv4PckKDxfNOiZOwwjH WdvoJdyv42hSS8jI73UF6mZ VJmGqN2MWSwmlH1Dla0OTRu PSTgtHEnE401y0cbx6rizmF mzVO5mIxyDEBifymyIvM1RC wsMURuzofiBIr0HImmMHPvf BU8LJLakTOmO5GyINUsKC5n yoe7SNX3NQoaVYGkKdI2QPD ozIKjMDQtuMadQDvgc794GK O8BaKiPIIzjnGyzMibpT9bH kIcTCQ1YTTrSNqbHBpzHSGF K1fnPZJ1 CLINICAL HISTORY (test l3jejZKoOBAajZK8OaHmNNE code = 3356) ub7nvt3TqgYMxzYOtMKtqqX NzeyMbzc64yFX9lV69YX2cW PWjRhD8SCRcmhB8Dda3URDx CNLycOPxA553p3bgc2chrzO jfFU8jKbgSRVmelmvFzS9XD hvVMRcnobrLCm5OXrbZVMgn MK3LDEvfARkT5YrSYCaIZ3u coo0TIW2QOdkWDCjIfI2XYO gdHJmQILvpLrwPJmvs604SE R0VcKoELSsikPxqTiffV7xE rVnAMOUmoTpN9TnHFn2wLLo cGFyfQ== SPECIMEN SOURCE (test w9bzbKZnYYDnaRR0EhPwKEU code = 3377) ts3avb2LswGCowUMiIGmrjN LxciMadt12eSM1lV40UF0vA NUeWgJ8IWFlsfP1Xty3OWCo DOBtaSOnC892z4gzh6hxhiU nnMC7oCjwIULagvpiMqM1YV dgAJOxunchINu5KUkwXNKfm EB1DOXaaYDiF7FkNNQuAS5h prq4FNV5XMnoEKYxAyR5JWX knSEmGFOjxDdcRFbng058AT S6RxAfUVIadqEfjSiwwM0oK nMyMCBNaXRyYWwgdmFsdmVc cGFyfQ== GROSS DESCRIPTION c8vcySWmGKJsiCLlEqGfZSH (test code = 3366) xHDHyp9axOWFuhZNcEwUhKq NcZnRuYmpcdWMxXGRlZmYwe 3cyu318rZNvv7uiRJGkBhM4 oJJuIMBcrDSfO329HZTzEQq wl2fsz6MpTXWxmGFge9O5HM FWbxoqjKl6pFuxX24cc4G2U gerG2ggJOJwUQAoK5ZuPY8b TLNqLuk1MAY9MCP1BUXjQTY pS0IaYO2yUNJocPXnQRm2z5 bobJbbEEDeJGO0z7geNAhfh fNeJE1hxj4mdRt5i2sxetSh SBFpONAhpFYYCEYiZ3HfiTy bEc4foBh1kCujOheiIFX6Rb w1EX6jdg76jkw4lTqlSENjc gojOyO7TUitWZPmlagcJSf7 MFxtYXJnbDcyMFxtYXJncjc yMFxtYXJndDcyMFxtYXJnYj ljXJmuMNPxXNA9GTeey704I XZ9JIikm8lhl2jydTJmKkv6 BNMjYbZrZjodRBgno9Tpr8m bKAUtnf4rJLD4zLFwgImlj6 H5wKEhAQKqxCLwqfDrOKTzH jZ7NOipUU7uoc93NAOgTDS4 or7ceBLtaLkbqiZhkHYvYMq fG9SiWLEtj483QDQwF4AyZR Wqg9J9kaTsXqHoYXDqyDJ6i rF4LCUyGGw7wXXgzeZ1jfVo pJBmN8vybX95QcAzuIXbH6P ocJ90NcDbwNAmM0BjiX09Cb MoxGYxE8VcpE48BnRfiMOrN IEpmWTlBg1taYTlqVPir8Jd uJIiPTeaV81iy599SCCtuaU aX0ydoXTvglzymHVyqrehLM knmuR9GDLnSUKbBYmkLZYcG GZzMjBcbGFuZzEwMzNcaGlj uPqkKYdsQnUrLJBuVKupD9s cZjBcZnMyMCBBLiAgUmVjZW t9WOOipN4rTi0ssDRziY2ft TGrWLpzMAK7iMBfUPOxMWYn SOUwPG43Y1DroM0kk3AdUQZ bh65gDC4gFVPiiCMeRAfowq FsdmUgbWFzcyIgaXMgYSAxL cDvD28iqH8fiRVeA7DtBVS9 IDAuMyBjbSBpbiBkaWFtZXR onzY6GT7bxKxcugL0vCNsnJ UkQEyurZQcJXucOPR3Qa6xj HBkNVXirvV1m8YiPMjjOJOh z3UbzXDvIZBaUpkxTXMpoEW iZFVnczDhpKrqrB3gZrLyKf MyNFxwbGFpblxmMVxmczIwX WkyqklgLXItBKhgZ1asDfWf CSNpsZlfIPndx7LrREMkCEB iNnAkTDJfEROjh0iwMB84SH xwbGFpblxmMFxmczIwXGxhb yaqXBUuFLikI5shXxZfEJKe pEdiJMxzc9MwDBToLXIoShT ccGFyfQ== MICROSCOPIC m8znrIZnIWZtdHN7TvZnRHB DESCRIPTION (test code qi5xjd4PvlEBaqASaUPfvgL = 3371) SdcoApyx63uSP3aK62AB8hF SLuGdB0EMXspoR7Qkg4VWOn ANLxpMPtH538l2iww7hqnnT byAC0sImnKLIlhfuePdH2KV pyZAIyyrbzXUm0FJcnGJPdt KZ8JJFifRRuN4CcBKQmRP5d dwc5IUN1OAanLVIiUdL3XBX njZElHRTtzNahLTwjc662LT J1IlCbCUBjxuHfmIysvI7wQ bEwKQLNZKJbo0DfOJDdMWZq cn0= SPECIAL STUDIES (test e9ltlTBqQBRqqYD6YzPqLVP code = 3376) ff9tfh6YtfAZrsYBbWAhfhH QioeIpjj93uUF2hN33TY6tD RDbBuP2IGKvubF9Kyv0UOUn PDLknOOkE031ZMJuIWQspNg hnlz0wM22EZNeyQ3qzJAyEP dtvfYmKJywhzGzeqMxKnf1N NA7iTecRXLsahtjSoZ6QOda GOGckeroQLh1WIjsPZEcaGU 8CVYvrUIxS2TwYCOqMM4gaj a6ZBI9RVlkPRCfZfP9HHWwe AWhKEHwrPdxOMlnm638XFI9 LbMsRURkssLnrMwslV5oMuA cZnMyMlxjZjEgVGhlIGludG LgmTQunBQ1sU9bFW3fXZNoj ZNgK7FlCCTpglYjnYWqOLI9 lYPveXZuTP6aGJvflWSoq2o vn2MuX7vcxCtgdCP8WW2mEN OqSCQyVLpbr1QyvQ5kRiyeO DYlA2HnYWNNP7IXTEIdKPRL Ms6EHtNKOnYyPcOGHz0dRRg NUywgQUZCXHBhclxwYXJkXG MbKFOXj032pn6jZKYtsKXgh bLAuYNkzP1mZLnaMFuxHXqe uIRuYQhnb8wxVGOce2x2tSB jEAYoueUvz2lwAEhjzyOtLE QjfPFwfXGyGXDow25kYGimz AhjhMcyWLBah0QwlKncu2Hi UtHgRTaun4FzA73zlGNfqXY wlXsjOMHziuBaSBNva53no4 mnVPNgZjA7xSAovXD1zTLpg AWfz0OscGqeIDBbq0tpPDSk qt5ocifwpBUzx9RcbN6xdpl uFIfnaODtyyZhVHOia5k9dJ WfIQVqTTJsVSvjfLb1PNIvy 074zj5bivQ1cBSeTEM7DVtn YWJsZSBhcmUgZXZhbHVhdGV wFLEmczAjWTVjawSVeB72dd 8mdQM3q6MvLP8gd4HdeJX9G WNobmljYWwgdGVzdGluZyB3 QNVigQFeWr6naKOzLUX4XBC qtWwuchLFgB6hXIWmEWu1JB OiObSyKbubveZPDTBhL7FbL VJrhsSjxjbtXVK0cE5gn7p2 TRitId1zOCErsglgx0omzjH kpXZtp7PwFFKsuaStt6BnEX IufkOyzRVlKHOgjnMwpv0km eWlAOZoFRVuT6TdljzvqIlw deI4GZDqLSSmwEYvrMpmZSX xDTz7YBhbjeAdw8GzDhCboh MkpCLaqpLnCW6lFEOuuQIxr nJjSAU0DHNsQYKUFtHfRGOu v1NxZZ7wPTInmLxjTTAtxT4 nl8ZsMSYpf97pNBQvXJVFET EgaGFzIGRldGVybWluZWQgd WwoeDIzlPDrNUCmSZQnDA6b ZCPsjpVtbHAmq2XgnPGmsaM zp0BgzpCjMMPlOVB4EdCVqN MwtYWtxKUwukO1n6LtHQZbx lOldQabfEAeaFBwiMUmt1Yo qj2mNCOjv0zgcEzsSZ2tsAQ iZSByZWdhcmRlZCBhcyBpbn Rec4GbA0E1nL7yHCvjk1GnD z9uNWGfg6DqklFtQnXKtGuf FXpiSo7kPLOscrqlaCSeA5X ydGlmaWVkIHVuZGVyIHRoZS NDsFzfbAZarXKRFNYjfkH8i 3S9CFfxuIQaoqJgMJ00BQJt HH5lxFXctGNlp1VyTHx9YVE lH0eDIB24THtlOQNtkPGfiA uarAXwPHDpVNSroyNfzx2tl FrtgZPgy88jlNB0bCW0UETo wY9nA4AbDCyqWb0xPMNnngj uqKUiqJakIi1ztHOzdW== Gross assessment was [facility] performed at ([facility], code = 2777) Department of Pathology, [address] [place] [address], Technical component [facility] was performed at ([facility], code = 2778) Department of Pathology, [address] [place] [address], Professional component [facility] was performed at ([facility], code = 2779) Department of Pathology, [address] [place], [place] [address], [facility] CenterTissue [id number] 15:29:08 Test Item Value Reference Range Interpretation Comments Case Report (test code Surgical Pathology = 104) Report Case: [id number] Authorizing Provider: Logan Russo MD Collected: 06/18/2021 11:41 AM Ordering Location: [facility] Received: 06/19/2021 03:44 PM PERIOPERATIVE SERVICES Pathologist: Tom Paige MD Specimen: Mass, MITRAL VALVE MASS- for MICROBIOLOGY then pls send to Pathology DIAGNOSIS (test code = [id number] 3220) uZzEwMzNcZnRuYmpcdWMxIH tccnRmMVxlcGljOTYwMVxhb xGyHXKnvXAlX7AqujmyMNvd TH6mNN3wvWinoQGvrAGtABA eKmRfb1zck577yOHwj8rnDX MXsjvxsGr7mVfmD20wr8S4A utjQ90kaCCqVGW9YJFcKXHn iMAsHLEjECQ4UGXhqULuE8h hUUDdKC6fggohKPdyVWjwYO IcfEO3OCXhuWDoQ7YnARGwV MvqADKlnba6KdWtRf5zwHEy eTcyMFxwYXJkXHBsYWluXGZ gUqIhDT1bKTUYZsDaTC9DXO JBTCBWQUxWRSwgREVCUklER W7WUuCnQH5LKZOUHBDTNprx cGFyIEZJQlJJTiwgQUNVVEU zJD8HUJMBCQRON1OQKDJHO6 MGR2GYUMXUZpPbF6JOU2aUG UXREBiTCc4nbAZfMYEMVPCL KCffA1NXYY7KNBBXTjNHJmB HN4YPE9DVQD4VO8IVIJSJYb ORDC7CGS2AVSEKTRPGHhWMV YWKAjQMK0pAW8edCMwbARNg S15HOtHZGYNVT74nE5hQWGI BKXGCX5DKJ2sQG6nVAUhuR6 LUWYaSJlVUMgNWCUZTZO0SE mVNKB1yNTCebx81XNZ3MzGj u7G5UYZ1JQKsRAYtv3fgSJQ mbGFuZzEwMzNcZnRuYmpcdW UsGKQhLuJib4uph206wVXfz 4fsDWHaTlE4rFEiFRJwzOZm B644IOLnVEdyf3olx0VzIXT ycSDrn4C7THMYsmtepNl0pI nyM68oo7F5HqkpS7xpHSKaY NXsZ6SoQV5oQLCwSjj1VEW8 HAM7DFJmHSCkD4AtNN5sFUP pzPXxNNz1a0qleMfuYLKaTS Z9g7bqCBvnexUrVP5yfh0su Gv2w1bgspJqHFCsVBGiuOSL LYLyU2UosDwzHp7gnZa0nMu iVrwlMLU1Cwq0FP7imf16hw y7bSbaNCTtoidnZqY1HGclZ KAafidgSJp8BKwrYTUyxJH0 CPXmwIBcB3AiFZMpNK7aqxr 6ZSX2NLorFIKxUrH6RAIgqB PgKUJbqClzGCwqq302ZCH1K rEqYI9nV0Ezx9K1eF4vaISs ZRCesGWiQaFkNOSnxx1yfIY uGXzmb3SqWGK9fsG2yPHzuN CzFVKpHxJ2LAvtHO6for70H ROoYKW9kq1fcSKitTjurrUr fMAuBAvqD3MkJVNxg824DHM kO4TcTIJky8T0rkDiVrFmWJ PbmOV0eaY8DNPzTS0dvdxob 8glQGhhUKflQYByouW9pkH9 PTXhxSQpA5ZqoX8aAKWjEA2 suhhaq2xkRQV2UWgcGFQaKN W9TgAnHTKir5Dwpgi4SfYca 4KmoQNsQQawR57wg086CKRv qtAsE9mglRAcztxglVDbbct aUUiugfX4QKQoFSodibutFW PhMTxyE1jlApIgUELnjDgnZ Ucnd1XbCMSwSKQnHwBvuLJp QEPnLxq8VDNbdKDeGHLiLvT aY1wtydzfLgUGEEXch4toN2 dmmMLZzAXcR7YxAPxqquRdS EisRHzoIkVeYBRtHY87XFG6 YWRrtf68 CPT Code(s) (test code l0owaZPoKXFucDU6GvAlTTD = 3351) js5yyv1FyiTGffPWgTDtnyI YoqeLrpv59lAY6rA41XB9tA QHjRvY9YFUfnlB1Emy2OJLl BCWqeDRbJ819d9ihr2uflwQ bhTC3uAlrHWMraetgNoH1KE wmFMDlacspKHm2UHdzGXJwj VE1KHYboTZoA4PcRKVpOF6k tse3TKG0TEckTBVvShV8VLS gbJFbOHMbwSolUWdel733IT D4XnHoFAMwbpZzrTamdD5gD eOpGIV4FHQmCFxjYCqpDTHG F7ilQZF9 CLINICAL HISTORY (test u7afzFWdSFTlpQB4AuOrVEU code = 3356) ef6ahl1JxgTRhvNSoYTfpzG KaanGrrp95kLJ9wS22TG5kR TGlDcL7YYVgkgF8Esz2SKWm WXHxdJVvR754g8qhw0ztenB hhBE8qAszYGBreombOgX6JZ dgZFFlhkuyJYv2MTuzFYMnk PC9EQBzbDXsT8FuVWCnQX2s qvt0RGM5TPyiMCQaDzA7BBS jtDNrAALvbSzkUEavo921EJ V2LkWwNMPtdbJlaNpccD3oC pVwUYTYivAlO9QrEOz3oSMq cGFyfQ== SPECIMEN SOURCE (test t3ctjSEnNAYewOC9EuQfDPE code = 3377) hu1tsu4XgtCDmuABhIBrcfK MyltZwkt61bZK2vD14GF3kC IWcSdC4USBwsvL6Qlp3HJJe TVTkrHKlJ271h8vnb1yplzP viKZ7kKrkOEMegkooTxV8AI ixQWLevcqqNCy2WJynWEOed GG2BLZqrBQmG0GoNWVeDM1f lrf3PKQ5YZmyNTKoRmS6CNN naQNfAOVsfRdhHBves636XA P7NmBhMPElzwZdzWmwtL3cU nMyMCBNaXRyYWwgdmFsdmVc cGFyfQ== GROSS DESCRIPTION t7ousFNmOLIjrIFtLbMnYDG (test code = 3366) wDQPvx8kzTZCjnNTdMiDwZc NcZnRuYmpcdWMxXGRlZmYwe 2hoa529lMLpl2oqRPFjXzC4 dZYfLVLhuKToT544KEWaBDl ux7sal5GoCUXyxGCrw3H3UN FKhtzvxGf4gEkxJ85fa4S0O gipX6lmMQXlARTrD8CyOQ1m EFOxEbu7NDD0GQQ4BFUaTGG cV9SbGV7zEUSnuWLbQLh9z8 cihRsxLTLaQDQ5e0otZFdhw xEmHS7swh9vqRy5q8zlcwNs XGKuLSEikDNROKLxB5HglRd nKh2mqBd2fAwxIvdwDIJ6Lh b4JW3bnf59mgs7uJohERDwt uyaLpM8APbeAIWaxurnOQi1 MFxtYXJnbDcyMFxtYXJncjc yMFxtYXJndDcyMFxtYXJnYj fwKJfnOEWuJSS5IWfyq411Z WZ1SYdcy3xek2ufaJWfFlv8 PTCbXyOyZovjECgtk5Cbx7p zRPFvza5oIED7jXTjkNiit0 L4mYJcACJeoCVrlnYcLUXvK aJ6YCohWE1tvs52VWXkUZL7 zm7lbPRrtRnusvKssBJoZAq hY3MlHTTfp020KLSfA3BcTQ Mye2W7tfRpPkUbJEVgmIW3p wO3QSKxLLz8kGLdguP4dkQb fKCrY1ngxN20MoJqjGFkG3E kmL07SpJdiQDdQ0AijC43Zm JaoDYnE5PnjM02ZdIdwXOjX QDzlKRrSh8zsOUbzYOag1Kz qGLdJGssV30az551KPIdyeS aP7ijjPDpidsorAPxqyrjIH mcehC3HSGdOWWtBQnvLPZxI GZzMjBcbGFuZzEwMzNcaGlj bGerQEvxVdInYEBgHNhdD4v cZjBcZnMyMCBBLiAgUmVjZW g2AZOnoS4oMq8krFPoxZ2wt UUzJWpsXPO8wNQiVETtUAOw IOZsSV07T1RhpC1pj6QzPOY mc74oJG0oRPGzlXPmMFxife FsdmUgbWFzcyIgaXMgYSAxL uLlS06nzX3xtTOsR2RnCBZ2 IDAuMyBjbSBpbiBkaWFtZXR jemM9QG2ufEwnpjM9aVJruZ MmSZmrsXKfUDnlPPI0Yq2bm WAoJOYhrbM2w4VlPDweGXZq i5WyyCVmYUFdJqgkYNUewKP oIFDotjMdzUrdqN6eVmEhHc MyNFxwbGFpblxmMVxmczIwX YepdseaNAZvYUdbE5daHmBp GQOylYciJKwhm6TzJSWpTHA xAzYlSCDvFGOyd0jjFW44RN xwbGFpblxmMFxmczIwXGxhb jphGVXaFHqcN6hkBvKaCJTb uPqeRAagn1TfDLGqWSHgGmH ccGFyfQ== MICROSCOPIC r3afnPJjDNHnpLA9JqOuAWJ DESCRIPTION (test code ks1zwh7IzpZVrvSJfNQcvbI = 3371) FqzfSytp06rRY2nE69GP2aQ IBjMpJ5NETjgeS0Dsr0CYJi BQDbtALlN405s7avh6nunzP cbPH0mSduGKBgfthrZgH2EX laCJSlkylrOGw7QWdyJLTig XM7KIYjoPFgT4HuNPDjLB9t eyc4VDZ1RWlmCFDyVoM0HAX kiSZeHOInfMibPNomg984CA O3EwNuMHZumfHscFrfjZ5pZ iAbITQPOIMpz9TrPIBsWAOn cn0= SPECIAL STUDIES (test h0mjpETzUIGssTM4WoHcFSA code = 3376) xk1yub2AjjPOozXNgYNkbvY RktoFogx79oQL0cN11OY0vA BFjKeX8NUKkfcA3Pnx7PXPe DNLreUIxX788TGCxHOPulJv ttxf2iW25EZUysM7ykTGmFC cwojVdZIburdHkxgBxErv3N XS5wNmmRKQvqxffJhY9NXsl GNPdlagwVHb7GKguQMFodUZ 3COYtdWXrV3WqMDOvVX4kag z7WCZ6VYahRWFyKdF7SVAjr VBfOZCouNyaNKaxh257MFK9 QzJbONAmzjTgeCiwgN4mHxB cZnMyMlxjZjEgVGhlIGludG WrhEYplKO3qY8eLG9fYGAoq RCgJ1UiBWOrgyAnfIDzPEL3 bUNthYCbTX7vBNezhOIid1z fz3OrR2vbyCrqnYD2IA6tEW CyBKIkURqbd5BhzJ7lThmyF TEjQ5GbTSEGT4JDLVYdDKHG Cn0SUwCCClPeBkLMEj8uXKz NUywgQUZCXHBhclxwYXJkXG NxAYWJj244pf2tQQXcxJKlt iCSsKGvbI3dYTfuYRxbPHxx qMNeSJphi4zdVGRts1k6kRW pYJBdjjWfp6ceDCznnjNhYJ GwwQUoiFQjKMCsn16sNPmkg MihjUwtBUQkz2CvpPsqj6Mw DcDaSKycs9NhS02imPOpqJH pxLwzZIXhleXwDCEir14jl1 ybAQAhVeM0jROxjSM1lHSlm JSto0AuuJqmBPJyl3tsLFFj fv3tkcmxoZNrt2UzqN0xmqx sPSlymUWkaxApCTFyr5p8xJ QjIDPdQNXlQYptcGk8OIGgp 234gt8ezcO2oLGhJEQ4AWsp YWJsZSBhcmUgZXZhbHVhdGV gTPJjkzCvXYPuefCJxB34im 0udTB0l1NnNO2bn3TkoMO4U WNobmljYWwgdGVzdGluZyB3 QYSkhEQwOs4kbXNeMBV1QHK qgJoezbQKxH9lCNCbFCo0TN ScGySuFcbdcdIMIWHjM9HqV IVqnjUfcqoxQOY5jQ2ya7x0 UFasEs6eNLJokwhno8eiusR bzUNca1ZsOUFustQjs0UqUA QysvDlsTJrWOXwcxXqol4fg ePjZESlRATsU9LaytkaaSfi tbK7RIUpYILqsQNctJzyCSB fXAi8GFxcmsFpt1PsIhFcpb QbmBHmjfDdLZ2dFJCgwGRxi rEzHEL3WBJhLZALBpGqAQEl u8RzQH3lKUHnwNaeGDBdaZ4 vx5LxVQQum62aPZYyDXUFTQ EgaGFzIGRldGVybWluZWQgd TrmqFVzrAAyEWRuROHdFD3d LTThjuPuoMKne5TiwYFbldH ci2ZdukYvALDlIRO0LmPReD SlcEJvdQUmhrP8z7JkGVRah pEuqZxckUYijAKcyZNuv2Sn ji3xKMPyh0kjzWjmYU2gfIB iZSByZWdhcmRlZCBhcyBpbn Soi6PaJ3Q2gD8cFQvuu6IfM x6kERUhk2HifxXlAcFZzQgf VSmtMo9gSMTuwxlnfLQfF3U ydGlmaWVkIHVuZGVyIHRoZS BRvDsjlXGomWSKHKGernC3w 1G3LBulvAGkesQsSR05DLBc RD5ncCKkzTYmy9MuWCj8AGY oN8fIUE74ORuhESCyfQEabH kfhLAyVJAbQIJhmcYhwe3rj JzdnOWhr61xbUH3iPG1ENLw cM8sM3PyTTjwJt5rFYCprxu zkPTdcYtmMa2tmQJoeT== Gross assessment was [facility] performed at ([facility], code = 2777) Department of Pathology, [address] [place] [address], Technical component [facility] was performed at ([facility], code = 2778) Department of Pathology, [address] [place] [id number], Professional component [facility] was performed at ([facility], code = 2779) Department of Pathology, [address] [place] [id number], [facility] [id number] 15:29:08 Test Item Value Reference Range Interpretation Comments Case Report (test code Surgical Pathology = 104) Report Case: [id number] Authorizing Provider: Logan Russo MD Collected: 06/18/2021 11:41 AM Ordering Location: [facility] Received: 06/19/2021 03:44 PM PERIOPERATIVE SERVICES Pathologist: Tom Paige MD Specimen: Mass, MITRAL VALVE MASS- for MICROBIOLOGY then pls send to Pathology DIAGNOSIS (test code = [id number] 3220) uZzEwMzNcZnRuYmpcdWMxIH tccnRmMVxlcGljOTYwMVxhb uHhTUNmoCNpM8BrivfmGHgc QJ3kNC5uzTnahCEgqILwVTK tSoOos0dcl907rLKzr2krFL TDqdcpoAw8rJikD10vv7W8U artL66bnLZqTIT5LDWiUTOm wXAiOJBlSGW7FCTcjBAmR1g yOSDpRJ8zsbqwXRmvOFdlNE TtaBE8ZPMbvISnV3GxPFOiQ TgpEGApqke5ByJsCt2ksBSf eTcyMFxwYXJkXHBsYWluXGZ kBlShFN5tAYIBXjFwFI8FMF JBTCBWQUxWRSwgREVCUklER J2UEbOwZU7WCBCEEGTNIdst cGFyIEZJQlJJTiwgQUNVVEU uOC6ODGHCBWJGG0VBKLHQH6 RIQ5KVTSLVYlNmO2TFA6dNH PUEKZzTBh3kwCKwAJZXDKIR MRowE2JCUH8TWTTVAuFWYgF AB4DMZ4YUJC3GU3WXSYBHZs WNZX7MCB2PPYFQSQJWSuCGS EQJReATJ7tAJ1ouQVdmHBNt E47GAqTUSYSCC07bK4gNBWA RJRRJZ2YJT3vSO3lSIBmsC1 ILJVqEZsPNBhTBUFOAGK1KM jMYQD1cJCPxlq72SRZ1AgPi i0H7JGF2JVWvYUSpr6swDXZ mbGFuZzEwMzNcZnRuYmpcdW TmQAMkFxFpy0ifg295hWGxk 0uzGKJvXiF3uELyYVOuhBEk S069AZFfXWjgf6jhh2LqQRN bjUFdn8F4GQQEdtfikSr8dM gwU37ei1A5CoweD6qbIHJmX HImG1AcHW0vPMYxKic3OIT3 MKK9IOWcRBQgS7ChPG0fJVT qwYDpKAj6z4hneObdPEWbLT R9p2zmRKzrijQwCC6etp8gm It4k0zacdZqMCCwJSAllLMH SCZuU3AanGwpEx1pfCg3gUn bAtuaPEV4Nav0UT4ywu55vl e7kBcbBMFwkmtsHmM8AUahB XNzbripRAv6APbuSBAhdWO5 RCFxyZBfT7DrZJKjIX7obmy 4NKM9GZcdPWLsNoI9CKRvuD FwYXOajOskKRwfx545VHC5C rNnEL0jC6Wdk6S0xD8zhTQq ZZXsnGWcYsOxOMKcuq7djXJ iCMfjj6RoHEW6bfZ7bIYooG LpLTRrXsX0SWfrSV0clj67R OMzEOK3qy4zkIVxfSyvazRn mFDvXNrzW1PqYNLis702NLW iJ4DsSJDmk2X4ymJcQjKjQD UqdLH1wtE9BDZtQA4fcsphc 1kcSSlgDRnlGDVyvrG4chQ9 SIMfeCOgW9SsvN8pTMHyAR9 asungg2xvOHO7MHhoUQSfHR F5ZkQqESYza5Tyyxo1CkZur 7FkpLNuDLclX31is531VOOy evDfC3sbhKRilcwogOPadhs zCPoetcN2XNKmLRounmpwIH UeIHyvT1vvDiWfBAAiuTxjM Qlcl4EyGLEqOFBaUaJefHUk UDCkJlo1REOutZIfAELuPpW vR2atgttbIeNAFUBfc2jgK2 coxOBXvYCtH6RrYKdussWnQ SjnDQnsJyXiMCMxZT22ADC1 HJNyva96 CPT Code(s) (test code h5xioKMuHDNqyOU7QaQyFTW = 3357) ko9tde4SixAQtqBTqTJmszP HsdaFrps61kFM1zK22UA9cF ZKtLvE4STGizrH1Dom2EAAi IWVidFVxV695d2qso4oipsV qxTO6qTgzGVUsnvzqUfD0SQ veIYQhbuluVFy6HOeoCUGxj LI1XQXjnBHjM4UgJQNtPL8s cba1ZHT0TPaaNCPyWsZ8POW xrCDpJZVioBeuRFikk832MT P9UmXbZCWuunCzdUobyV8iB qWbWUY9UBUzZIifCEmwCBIQ I5phAXJ7 CLINICAL HISTORY (test d3khbARwHCVmgIT9QmXaDFJ code = 3356) ws4xto5GxqPVuvHVoXIvngN FytlQowk96dYZ2oU22BZ6cD LYfCrY3IOBykiA9Hqx3GDSu IGSiuZUwR996s0vkf8bohkJ kvTG4qCdwLFJadptnKiM6DS zrUWXcvzjrAEb5XXdlEOGhb PE2SJRktEEtG8UnIKMgHH7y qyf0ETP9EAbeEVRbRqQ1EDS iuYUyKLMgtPsbPEhaf604LW H6GaNkADBschDqnRmbdY2wW mHbSCXZbnHyI2UgXZf6yVSm cGFyfQ== SPECIMEN SOURCE (test n6ccaYCkALCogPM8YuEkJMF code = 3377) mf0dxp1MrzJVbrOMdEGhsfC ArawApdp43mVY6uA56YR2iT FWwCeD7OLAghhT3Hir2OAYz IQXyxFFbZ199k9xag3zwhmX qeQQ5gPhgGQVamohpCvF9NC eaZTGlydqgBIu5SQhuKAXlu XJ4RGKmmVGeS1PtWDUfEF2s hkp0ZYP7IIdzQTFwLpX3ZPR ttOArEAXkaVqrKQsej476VM P2QcUcPCPtzyTpyBtttS7rQ nMyMCBNaXRyYWwgdmFsdmVc cGFyfQ== GROSS DESCRIPTION x8vsfHWnMAUmqADzUdOmUPI (test code = 3366) kKAQst5unUAQuaZNfAfVkEd NcZnRuYmpcdWMxXGRlZmYwe 6whe376rBXwm4apZAFqVbN4 oPAzIAFaqAXnE844NRNcHIq wp6hwy1UxQZWxuZBto5J3NF VHhgaixEq6hDtuL56rq6Z5O rseE7rnWAWyQWGlE6NoXK0m WYZbVyg4PBT3RDV2HEGbCFF fW6TaBB0kUASzcGWyYKv5d9 xtyZwzZFDwZHA8r8rnPKnzm sMxPD4zyj8evBl2a2vfzpZz IRVwVWCcrORCRNYjI4NdxUj qDo3bpUs9bLhrBgksQRQ3Ny s8YU4vov75iog7oMjoVRJrv bgnHpG3BLvgCVQxyfhsFUk9 MFxtYXJnbDcyMFxtYXJncjc yMFxtYXJndDcyMFxtYXJnYj qoXEjiPICkLRD2COrcp801E ZR3VNyye4ohd9wytVQfDni9 NVOtYvDzZdirBCnri2Taq0v bQYWyan2eCZQ1mIBkdWgtz7 S4cJDuDHCcpLMzvcXgVLVyG nN1YZqeFY7lma68ELMxVSD9 gr3piPPxeFfkcwDatDMpHJk sT8VqZAZht975LXIrY2YzOM Gwk2J0lpKiLsRqONHljNX7t cK0VUKaTTo6lGYpeyF5wmJj vTBoY0yseY71MeNgzRDbF7G daE03PaCtfOOvV0PinT00Ir EubYPnJ9VgmK84CjUquUWtY UQkbCHaBm2pfCZvxZWcz0Mz qBBgTMhwQ42jw840PRKkscY zF8kvwBVlcwcccFOriqsnVH utxtS6CNRbIPMjXOkjBIFbL GZzMjBcbGFuZzEwMzNcaGlj kKxfXUrjGrUmHKKwFBjeS1o cZjBcZnMyMCBBLiAgUmVjZW r0JLOhhK8aQn7ftODqtI1jh IYjCEoiFNK5gMKdAACgMKSi XZTrNP86H7QvdF6oh3KiBFJ rp90kBO9aIRLenPRnTObsxb FsdmUgbWFzcyIgaXMgYSAxL jAuA51cyQ7cgFTuE2VbWHF5 IDAuMyBjbSBpbiBkaWFtZXR tuwO3YZ0atAzphuV4iMPhyH AvNSqakSGiCDrbAKQ3Xp5we TXtAFDyfcK4y4AiNQoyGOKr q1GwqNBbMJWrWykqVZSaePZ vRVKejcXtjTjnsQ7dDkUbOi MyNFxwbGFpblxmMVxmczIwX VaozteaIAGhVBzxR2ryWaHd GFOuqNttIHwzq4XbORZxPSF xSjXbVMHvSDPig6doYV27KY xwbGFpblxmMFxmczIwXGxhb plcFNZrUOnwF2xdMqLkVQKg yWkoXZyne7HaOMBfTLHyVlN ccGFyfQ== MICROSCOPIC a1istYJtKPOxoKB7UgGhTMH DESCRIPTION (test code ut7djh0ZefULjyFKqSXrfjB = 3371) GzhiLzkg17hEX7uW67ME2sY ETfYfB1AATjbvU6Uex0TSMu LHIvuYQtT258c6rnq6ltecU nfZA7mZeyIRZpwkrxSvT1RF lqPHAdkxabEVw6UJliGNWgn CX9EAFesWNpP5BpCJOlZV9a gjm0OHH6SIwbYEVaIrW3LHP hoQRkVMFdqXvlFZkqg355CI C5GlOsCCKewsQdeKwmmE4qT mHxXXTCYDZjj4ItVKDeMOPe cn0= SPECIAL STUDIES (test b6nleUTsDVVwnTV5BhYhOYQ code = 3376) nk3zso3MqyNOjfEHySPyshL RbhcSmev34eWD6kF49VJ7yX IYyHmV7JUWutvT8Xts2YZPt BCKjrGKuM465XNCoQOIttCb ubdg9bG78PZIgwY5tjOGkQU jgccYfKZdpgbJrszMuDhc7S RN2lJirUPDdnhvqFuS5DYvo JGZxqvikKLi1UAwgPFVirOQ 9VTTdiFWlL3HkQHOuKV8ost q1GUY0WOxvWCFeUwG2FNEcw HIfJQFwjEhaQStzh515KTI2 SfWwXCIskmDhkRaiiV6eDdU cZnMyMlxjZjEgVGhlIGludG WgqUQlgRU0xR4sSS3nDQEnn SCgQ0LrGKTtqaAtpMFnOUL1 pFBkfPYxSR6rGAhmeZElm2k lw2HjC9vvaUorbJO0OG9uCX PgHATrVTrwz2CurZ1tKkngF PVzP3KpSQTJE9ZFNQUwBROH Zv3BXrUFJmAlBaOFMc1uVXm NUywgQUZCXHBhclxwYXJkXG BcKTEUm904pl4nMZOklPGnt pOBkMZgrN9vYYluCEmnAAbu lDCfCCowa1qeANRvb7i8vZR nWISgteMzb8zgTZypgfKnTX HjbQBahDSgGJLdd41iUWugz FxbxTflYPJzi5CcfMmpq0Ku HlBuCTevl6IoE48pwNYgzTF tbPbcBCQgyaFhGDJka63we9 xxFVPcUjP0hJHekXF3vKIvu CUmf8IxcTswQBFxc2zoNWJu hc9ekfsbeIJwt4XwqY8uebe kIXowuGBuuhRrZLKdj0q1sH TbJJHjJLWeFIspgEr8JIMwn 976cn2nfaT7uEXwUAI8RWks YWJsZSBhcmUgZXZhbHVhdGV mUUOucwHlPCFkiuBNyA22en 0tuNV2b0PzDM8ia5VlmBD7H WNobmljYWwgdGVzdGluZyB3 FBZaxDPePy6xeWObRWK7LNJ hjUjliaHIvY0fSXAuEUb4AM FkSoDxBxaijgPUKYAqW0DpG QHtkpJsgbkkJXB6qS8jv2h1 WUccZj1aPXIaxoqaz0hyhpI sqXTgt6DdZDNtbkVho2WiIK MllsXqoVMjRAZtacUepm1xy nTjGNFxZAYgQ3QnmrwanDcv ntD9QXQjRAPbrYGxdSguXMV yTCh4EKxohiYpk1UyXlFvrz AodZIhkwUoEI6jZHQxnEDbo pUvTRR6VEGtDCAGSuAtXPZu d6OlCR0qLRLdwOnmJBUjcA8 el2DdPRDxb50eZAGzUQMWWU EgaGFzIGRldGVybWluZWQgd HgayRCwsNFgAUQgYOSbIY8c XQQjiqDyfHYcn1AwvYCofeS st0RqlzDfZHJgKZQ7BxGXmY LsgFOvbNPbztD6a1LgPAUxk dYsrKptgLSbzRVwxBPqt3Ga io9pTETzo1solQyyFN7mjFI iZSByZWdhcmRlZCBhcyBpbn Eyf0HjT7U3lY4cOJkhb7GdH o2iADJdo4SnuiDxRfQJkRzc DDsaSm1dFBBjnueggDMdO1L ydGlmaWVkIHVuZGVyIHRoZS NKhYdlxDBpyKGSVRErjaK6o 9A9KPtldHHbspKsZY91UVVr EE9baQHdpNSzr7WnVMx1VUE wI1xZMY16URmhGXXvjLNlvF sekKQpXAHnSUVxriOkad7xi QadoQMhe63haJS5pXE9KNZe lP5oZ7SyZPljJe8kJXClhor xyRJbfIvwYp9tlBRqsM== Gross assessment was [facility] performed at ([facility], code = 2777) Department of Pathology, [address] [place] [address], Technical component [facility] was performed at ([facility], code = 2778) Department of Pathology, [address] [place], [place] [id number], Professional component [facility] was performed at ([facility], code = 2779) Department of Pathology, [address] [place] [address], [facility] [id number] 15:29:08 Test Item Value Reference Range Interpretation Comments Case Report (test code Surgical Pathology = 104) Report Case: [id number] Authorizing Provider: Logan Russo MD Collected: 06/18/2021 11:41 AM Ordering Location: [facility] Received: 06/19/2021 03:44 PM PERIOPERATIVE SERVICES Pathologist: Tom Paige MD Specimen: Mass, MITRAL VALVE MASS- for MICROBIOLOGY then pls send to Pathology DIAGNOSIS (test code = [id number] 3220) uZzEwMzNcZnRuYmpcdWMxIH tccnRmMVxlcGljOTYwMVxhb iYlORIzsUBrL4VmiitnYPml PM7tWV9vzIbzmQByhEXoUWB zWiRej1jgs162oCJte0jiKZ FXkvhdlJb5sAkcO17jh7O1D hjyI84kuPEyALP8FBVbODLi uPXlOPVwBIU1LUMxhMLkO4m sKPKfTN5vfffqDUbuWAjzPA TvyYM6TSXtxHFcH7DjYJJlA SwcIAJqifs3LcKcOx6spIRs eTcyMFxwYXJkXHBsYWluXGZ gZwTfEY6tIEVLDmRfZM4CZR JBTCBWQUxWRSwgREVCUklER Y4XJnMoVD3WQZLDZYJJCwwo cGFyIEZJQlJJTiwgQUNVVEU fMV3CGDAOQPVAW2NPSSBKH3 IBL5NJKYPRXyFcB6ZDY9xFD GRGBJdHCo0gcWVoOFANAZTZ KVhxP0WORA9VSTEVHdLXSqJ DF6DQR8IKNF7LL9KIHUTXXv WKCP4OAI3QEZTDQOLTOkUAE RLXIvUKH7eKH9isEDueIUCi V61FPpYLLYDUO98eT7iVUBY ALKMWL6TCC0gQS5iBWDsoR4 INWTdDRzBXZdPEZOVBYR0PX oTTBE2wGRKiyr95DSO0RvPp i3L7DYG4PYPpFHWyn2idGOS mbGFuZzEwMzNcZnRuYmpcdW DiNIArRwXco6opz009pWLxq 0oaNYJaJpZ8bMIrICArcLFa F136KKZuZWozj1hnf4LyJHX oqUMuy9L7IJERxhrxnSb0rR eoY95bf8J8BunoB3ipUZLxL IAkK5NyEV4lVIDsJhj2RQP2 FDJ5SGYtOPUhY8KaKZ2wYET rfVMuBCy4p5kpjTiyRMHhWL H9z6tkGTfbytDpTU0pib7ay Xz7q6yspuIoJSLkXZDxyCZJ GJBfX3YnwYdhGm7ulTr8cIt lJinqQNG7Giv2HN9kav21jj g7fJzzOAVvwjaqFpW5UCkuP EAhtkpaBXw2JYifFVUlpHC7 BCKsxULoX9PxYBWdTR0cqil 7NIK3MDltRYHbDgI6PUHshU LfFRQroYgpPZxif696RJJ3V uXeQK8oO7Jkd2S8gP4ilZWt OZUkfKNbQdXpPKBvet3gqGI hPKsau5DrZWV2vpH4sFDvwG CdETEcQoA4RDfrOD6bqi94R UYnCBF1ig4obSBrpUqiekBz gQWzBXqoQ6ReMHVwy663IEF qS4PcDTHwe4W5abBqNoYuOI XcaBG8bsN6ACJhNI9tcfivv 8zzEEglFCfhYKMwaiQ9epX5 BUTcoENpN9DioO4kOZMfRA2 lsplap6znUVA3ZOtbGZWzMD J0YfGjKICtd8Qpjfm4CjDdc 4QagYCcJZyaS63ln133BMUy jlNhI4dheLEdmplvmMJkmbb bYIyreeE1FVDiSDjylaitZA RgLZzmR7mdLxFbEJBehFztU Ayjc7RyWZUpJDRgQhAosFEp NEAvOnu4HTRnpTQpYIUeXgS lX6xtvbgmLaTZDMTxp4esC6 duhAFDrDOrI3DlKFjwxnFtZ VpqHGetMoUgHWPaAJ65DCK7 HRWhgg32 CPT Code(s) (test code k7juxPNxHUXldEH9TbCyISZ = 3357) nw3szg4OlqTJtqYAsNUzgkC CnorGvnj04gUY5cI23TB3rN CDiQfJ6PSHkwdW5Kpj0BRKk NLZhiQKrI167f0tdr3yhqeL sbDT6jOusWANgydxgVwC8KT suLVKhlikyMWq7BZecRKCaj LS5SJLslOLmZ0BcEMViXV6s phu0EUY3RMqkFDHhOvV6XRB cmBLpCGIhsUdsWUsid469LE G9ObFzGJJmlqUhdEtvpE7wP sFtGTU8OJPiWJweQRveEPHM V9iuTOV8 CLINICAL HISTORY (test o7fsnBCdQLNggIB0EpOyJBW code = 3356) zt4ucz5TefJKgkABqNPtbeS CetoVagj05nOZ2oM81RJ2pF BYoHaU7RFGuvnF4Duw8ZMYy LBXndFHxH382s6jqx3hbybD gjLE3eTnaGNSzerzdEhA0WA hfFUFbdigyMRt0AQffQWEyy EP8MCWduRYtM6QpFMKwRW7z xdw5DNF6PIioLVDiOwS9MHD fxUVvCXEwvSueWFgeo339ZA H5OvRpNLYhcvVlxXaujW8yP qIcDJIAcoZqT4WqCMt9hAFe cGFyfQ== SPECIMEN SOURCE (test g3odgVBpWKWesEW1PcUwBLO code = 3377) rc4npz4QyvEVnjCHkYCssyM GalpIpry22iLN0wU49XN3wN PDwSvZ0HBCarqS1Hnw5XXHt STYfbCRrT007b7hbq9jkahL arFP1vPajYFBcordeZcO9KC swQYIapkyqHFw9AReoLLVtx RQ2LZJzxYKzA9GuGRKpQJ8b dxx7ZJL6GHtyRSMiWuD8ACO ixJPmGEQxjVwcZRbal972BJ S8SkOuNWDtjgFqlHryzZ2eC nMyMCBNaXRyYWwgdmFsdmVc cGFyfQ== GROSS DESCRIPTION w9csiMJsKSVmxQXiHvFoLFY (test code = 3366) yDPSfb7hqHLSkaAZmRxBuVi NcZnRuYmpcdWMxXGRlZmYwe 4zci140iTGvx0hkZMHyWkK9 eRYuLNMvuKSsY432VZXrMOx gr1sso5VhTUJzfXQui4Z1RB YIybygrVb1kQbvW64dk2W1I efqU9kkAPUjCHCbT9RmOJ3y ENQyXgo9LNA7SCH0BTCuASS hV1KyOZ0aHFTmyGYgKFj1d2 wipYkdDOVmRCA2v3ptZTsdy qQvXL0oru5kwKt8x0mwqiZy UVLoKMCafXPTKHZcO1SjkJi oFj5pzOi6oWrwKkpyCBQ7Cy g3QT3smq73sln3dEqrENJxb lyzDqK0QXtpRQWgbggcNJe0 MFxtYXJnbDcyMFxtYXJncjc yMFxtYXJndDcyMFxtYXJnYj weXCicCCErXCA8SSxlu448I ZY8ZDfwd4drw8fupXLkBps5 UWPrEgPbGzouPHzdb3Laa1w gCDXwzo6yYZS0oNBpeImie4 R8uYLcBWHwfUZabeUwTAFgI oL9QTkgQN7ark96WZFwHVF0 ed6whBXabLsjttBjxYSxBGz aB2YfQGNnn587QKZoC6IgDH Vpj0F4nxFsQcDfZGJfuTT2s dJ6UPGaDAh0wZAjjfT1nxFw aRQnT1hxxF14HwTvqUHaC3E kcM71PlItxBQaN8KfyB82Xv SgqOUcW2KhcA83QqLelVAvO YNfsWNoWs9bnLQhtQExa8Tl dRDqONbsD54gy993GSAhciA vO9gsnVLqrlhdtVScvuyfHB ftnoU7NSNdDIOtQVczFBGfS GZzMjBcbGFuZzEwMzNcaGlj xZmbDPdnXiVePFUeBGedT1l cZjBcZnMyMCBBLiAgUmVjZW m3WJHebA4rUt8psSLzzR3ay IFvJHdtSYM2tKFqCUQyAJDq ZKXeHN22K8VvxF7sz4OyGTJ ce79jLF8uOKJgpOVwUSxgny FsdmUgbWFzcyIgaXMgYSAxL kFaE08wfY6hhSIhJ8QjBWJ2 IDAuMyBjbSBpbiBkaWFtZXR xcgO2GK6teOumztR8fUMkpY PfDZqvxSIgWAhoUSX8Jz8sc YLcBBZxpiJ0c9SlTBoxFHOq i2GyqTCtNHHtIlvtGIJkoGG nKCLdtkUcqApcgI0wQtFdXm MyNFxwbGFpblxmMVxmczIwX GeazpeuHTIjYTjlT3krBoDz FQYlhImmLXsxg0RiRVVoNFM vLyHfJRAuLSWnc4bfMF25GC xwbGFpblxmMFxmczIwXGxhb kyoNQXqAKqcM1tqMcHkLTOp nFgfNNpsu3CuRPNpETRqJhH ccGFyfQ== MICROSCOPIC t5eabMMtQJMzrNQ0VjNdGZC DESCRIPTION (test code [id number] = 3371) JiufWcms60iOK9aX65YU7gC XPzIvL4EOMauhW3Mch1FAHy TMStbGXsD023f3zyl3tsnzQ ufTC8fVpcJATicfevVgM6WS gvHCQsjpdyDPe9PWhfLFOct LU4LUSrkMKiN6FoXSKjFA9a isy1XOX1DAmqIFJaIiK2FGM lbMIsUJIzbBcbPKomp053KD D0BfYyEEVzbcOekZtvoK3zL hJhHYECIXVxs6VdHWDsOYKg cn0= SPECIAL STUDIES (test m3tnyTYrJAJzwDI2UaTmVUL code = 3375) jd9qxi0IjdPRbaRSzTMihqB MguzZnwh96sIM3iG97XS1aU HVhPqG6VVXmuuN4Zsh2HWGu EYTxzVCyF934TJCxYENhtPr fges8dH33UOHrkX2swJOiVQ jatsXnDQfkxeKtfqUbRuo9K DZ4mGfnEDVulhgxFbA6JVen KIBaepjkBSr3LJonWIWquPN 6SCMcnOJuV3MsFWCyGL7yok t7RYP2YUtwRFAgBcW8LFDbo PMeQPLkiTrdULgrd258MNR9 JmIjWCRzqpZhtOyhfL3rOhX cZnMyMlxjZjEgVGhlIGludG PszHKyxXX3lK5kZC9gEUGqi ZSnF8OjMESdppRdzSEnXTG8 jWAirHItCF9vFErioGCfk1f xa4JdM9choIvhiTO0UP9uWV CwUHHfXGdmc2CtjP3dLrggY BUbT4SjLMMOL3HOVIDcFDPT Nf7LGdXWArYjCcVMBi8gJYk NUywgQUZCXHBhclxwYXJkXG OyGCGYw240mo5eFPLreABew hFBoAJgbW9zCMdmLEblMIer cAGwHVxyc0exOMCie3z4bSU mIGHgrtUue5xbPTnyyxAnPE CnkYMfsDDgCKWgz64cDHrba ZfkoZzwLKUwd0YtdXgmo5Wy KoLdSVkqg1KvZ80soKOwrTY fwOpqVCDrsqIeSIFhk45uj1 ueFXZiVaW5qNKraZF0lYEqm IWdt4GfmLciJWUvp1vhTGUu fa4kehgexRYxa8ItlI8reks cBVprjWBuqdPjTXJih1n3tU CgKVHiTMEiKFychFo9LSFif 796fh9usiU9wTIiRRH9ODdi YWJsZSBhcmUgZXZhbHVhdGV wUCGumkOqPVNvyaYEnI23md 2mrHQ2r1GoUL2lu6YbzDO3V WNobmljYWwgdGVzdGluZyB3 SQEylALdAm9whKGoVUB1NXO zxArfngZVgY3vCZFoBSu3RE OpPnUfIcjmvjOUOPXcT7ArJ NLwneWkvehhCTF2hO2ow3b3 YZbaHz5hFOLhripsx0kdfkL uvJUyh1GoHCAmcbAav4FbNF VxetBusJFzRVXggxTwat3nn pDqUBTzCDHaN8KjoupitZcq iaJ1COObQIVfwDZryJdkPAI gGOc9QAbhfzBlp1RiBjGzet EfaQMzozYbYO9cSYIpdUUpt kUdNPM6UASgGCDFFzQaZEFf l8EnYO0fGAGpjBdpGVMruY4 nc0WdLHEoc68sTNAiEBEVDQ EgaGFzIGRldGVybWluZWQgd PergFYpwMOpQFReHQOsQE7s WBGwwvXacUPfk7JraOBozhE aa1BqfbWpYWPqHXI2OvGAjH VjeUMdePAoukD5y5ZhFTObe mPgdHlqgNHvnLKgvMJxf6Aq is9hGAGre7bcvQjfFT6czXZ iZSByZWdhcmRlZCBhcyBpbn Jvt4QoG9R3tO2gZLloi3HdR o2kPJYtz7RbjcFyLmIIqKtz UYpwWl0uZOOxafbjoAHmL6V ydGlmaWVkIHVuZGVyIHRoZS MEsXdnzWHaxPBAEZJwyhQ9k 7U0SEelzQHvryMsSP41PCAt AM1jkMLmnZPvu2SgYZn4XRB hQ2oVIH15HJxaQVUmsWFnyD hojHTmYMJwZPVjskKsey1fe ZhjdDUgh40hcDI9lOR5UNUo gL5gN9BqKVjpKo9lEZDgosq yqGQzaKxlQb9mjUTohK== Gross assessment was [facility] performed at ([facility], code = 2777) Department of Pathology, [address] [place] [address], Technical component [facility] was performed at ([facility], code = 2778) Department of Pathology, [address] [place] [address], Professional component [facility] was performed at ([facility], code = 2779) Department of Pathology, [address] [place] [address], [facility] [id number] 15:29:08 Test Item Value Reference Range Interpretation Comments Case Report (test code Surgical Pathology = 104) Report Case: [id number] Authorizing Provider: Logan Russo MD Collected: 06/18/2021 11:41 AM Ordering Location: [facility] Received: 06/19/2021 03:44 PM PERIOPERATIVE SERVICES Pathologist: Tom Paige MD Specimen: Mass, MITRAL VALVE MASS- for MICROBIOLOGY then pls send to Pathology DIAGNOSIS (test code = [id number] 3220) uZzEwMzNcZnRuYmpcdWMxIH tccnRmMVxlcGljOTYwMVxhb rOnQIVrjZVuK8SmmglnNLdf UB6wBQ4zdWkrrBLpuOOpKWB tSsTcq1utt472wVTdu3doDC HUmouuiTt8vLqyO05ae6W3I qqvC59qvCMpVQY2HUVlYHWd nGXbKPBjSCK4SJPowRSdU5f dPLBzBS0hpcdjKXdfHWofAR BoeCN7RWLzhHIvG9FdCJOfI YpyLLVdihp1CkDpCb7joQGj eTcyMFxwYXJkXHBsYWluXGZ fCzJqIF6bQWBLLiWjMY3AGO JBTCBWQUxWRSwgREVCUklER Q7FYiZoHD0ULZDKYHFTYlsl cGFyIEZJQlJJTiwgQUNVVEU dCR5BZNCKPSGRU5AQNKAFQ4 MPU6ORTOPQLeLrB3TQL4cIX XALDJfREb7lcDFjLYOQDLJY NIwoM9ZSMT0RZCZBQxRMSvD MV7KUG9RPNY5DX8FXKSNXEc AOET6UTI4PXDHITMJXIwOAK RUWVmEOF7fFZ7jaBHxoKXYw A73DVdKIAPVZW03vU7zSKXZ GHJGDF0KRV0dCU0fVMFsbL6 AJMAuERxVBXsSHJQUJXF7BX bMSCL0zDSMgfm41VQM2XfUy w9G3DVQ5SSBdATQbj6gmGHX mbGFuZzEwMzNcZnRuYmpcdW BkJKSrDzYni6exb292cWHtt 8kgQSTxMhT7pYWiVNAcyCMj B449RUZgJEtcf5xxc5RnSFH ijVUlo9G4SCBYjqpvsIg0lQ ntS77xv7Q8GhaeL3tcYHWwG FOjH6KoIG4sOQWzCtn7XGQ4 GNK5XLRzOPTgA0ReBN2qTUK ucTToQAw0y7cgkJofHGOmMT O3u0xuUOovhjLiBD9yxr8mk Zs5e0eavsAfWKPwWGEkzCIR HWWdG6UdvBcyYr0jbRd1jYc vDroiPIR2Lro9KC4tne31jq t2bZarUWCbilkxDvL2CTjhS VUxznptUKo0AEokNTAdqQO4 JGUtbZXzQ0MiJMVfZW1oovk 0JTF1SBzyQCXhTvC0TNKekW IkJSEooHuoUEwrv120MZT0L wDaGF0fS5Qro6W4yM5ypCMo LXRzpVRsXwJjKZEtub4xrPY pCFbkl0IxCOH5abP2eKXcoX JfOJMxEoV1EPvlHP9rds17Q HOjXFO0bb4wyLHswIspkoFf lLNrZCgiS8HjVWZmz641YDH pI1AeDVOeg0H1iqDqJiJwPL QagRC5byV4XQZuHG4vleugu 2otFOirQQkhOFEzcwT2bhS0 QMQmnFGmW2AjgX4jXFLrPU8 irdeva0anGED2FJchBEPzHD T4SdXoXYFnp3Avwru4ZnRul 0BncZFlKAcdP27bv752CZDj osLoM0xvhWUaufwqvOPzymp rHDgmwyD2PUBgMGpcyaxqBW VdZGpgO8kaGlIcHPNpdGejS Lbau8UpYATnZJLnQyPqvOAo PHWcYyb3SKJnkSRyIHKaHpM iS8elarssJwGOMOUtf1meW0 wdaYVNmCPtL8RzCSuwpwSeK HsgGKsvKzFiBKZiTY76KVN9 TCOdhk73 CPT Code(s) (test code o9uavGOhQLXvzZR3KuGqYKK = 3357) rc0jww9EwlHZuhAQkGSgvuE GjwzCsye08cGM2kA31KR6pQ NKfApM0OEYckcQ9Ymt3YTFm MAZopWJdS475z8ydo7ysqcN stOY4uTutYKHxbhirOqI8ZG lpKPKnumjcVCn4QZqqGKCax OJ3RSRsfWXaY1DqHRAhFH8n geh8XCR6SDlmOCOzYuU6ANA qvCZlPYRlfRdxNVctr045HF D7XcRhKJFgiqZduOjfpT2nV cCyAPS4KWPwEVolMSgzGQPI R8hwUIS6 CLINICAL HISTORY (test t3mekUMkCVHtfFX0LqFrXKS code = 3356) go4kxf8EjuOCwiCZpZRqmqF AulfQwjx70cMB9pR29FW7wH FCaHhE6DXYlgkA5Pki7AQAe YYYziCCkS783g3hpx8pwbbN nuIX9bPbsOIKqhvajXvZ5PR hcGWYetgvoRHs7NOxgESXov PR3ZNZkfUGgC5ObQIQhAJ1s ypw5YVR4OKrqYNXsZjG3EBQ jfLNfHEScaSitKAszu690WF S4EgOvUFJqovYmyTqflK4bW uVyLCRRvpGoD9BwFWz2uYKf cGFyfQ== SPECIMEN SOURCE (test a6uwwNQhCWIcwZY2NwBeHKX code = 3377) ke2tfy6BvnYBwrZZoAKkkvC ZdckNkmy02hUR6rR98KQ3hB LSzAdG7MNYigeL2Cns6ZRHo JRHdeGPnI896b4qmh6gyssA xnDK8uRcoMZBxoeiwNfZ9QV feJVBokfnyEKd8USouZVFcm AJ6OQCfdMLiZ8BmHXLeKJ4v jwi7KSG1QWroGFVaDkT2KXK anCXzGAYubHkpCKlno989JA Z6FzYjBZCdveWbwKthiV6cC nMyMCBNaXRyYWwgdmFsdmVc cGFyfQ== GROSS DESCRIPTION h2twxFSvHQGaiDJjMePdABI (test code = 3366) wZMZdj0lrKGMkgFZaUuLuDr NcZnRuYmpcdWMxXGRlZmYwe 9frj978xHQqe8olAMSkAuZ6 uCJaSKTctCJaV260GAPeZLx wo0fme8KdYPSjjATym0M5PB YTvdbjcOm5tAxsL06sy4N3N yxyK1srKYGjITNuT6VwAE7w FVLnRpi2FBE6GJC8FEVfCKY fD4PhJN5aADBqeXVmKZz1w9 tjpQbjZBWgZQV3r1ryEXigz yXwFN3jyw6fcXa1z2clwiWk SOQaHQLqxXDTLTReQ9HysJr yNx1tbXa0gUkeVplhEJG2Jk v2ZW0vrh51iqa0gTlvILDtr fpeWiS9YSkqYZQerzumBTk5 MFxtYXJnbDcyMFxtYXJncjc yMFxtYXJndDcyMFxtYXJnYj zdBTfhAZKdWXE6VUfmf590D SP8VAlyy8qkv3vsqPCyNkf7 YJHyJzJcFdmmOQwwt6Uwl0f iWSEgcb9uRRR9cVMrrFiuf8 H7kRVrNOCblXWqdaMgIVGnA mA5TYevEE6eal27QXRbBNO4 en7ksNFidRdywpXjtMRhZOw dV7TfIOHpv184LJIwG9SdHE Abk6U8peIpQlUdRVDjeEE0k rG5ULImOQk3sQNnjiY4qiUs iGNsZ7zigV15ObXoqLWuV9M ttL23FmDaaMRzQ3XkbP56Go PhaTSpK2VdcW05HdGniWEwA PFjkKXyUx8haZWmnTQrf0Tv sFEtMYhrB81nr594SYAmycZ gN8tmmZBcyvhmzXDimoqkON vboaW8VFVgGXLmQOhaHFCyH GZzMjBcbGFuZzEwMzNcaGlj zNdcXBofAxVrRFLaQKfdM8o cZjBcZnMyMCBBLiAgUmVjZW z2HFWadM1oIg5rcZJswR3tg GNiJPreNHH7mSJtJWBvDJAf BIDmFV84H9BjtM7ui8JbPWL eb91wEZ6tQQKcyNZfHOoszb FsdmUgbWFzcyIgaXMgYSAxL tMyC15weD5qmLDcR0TrXGQ8 IDAuMyBjbSBpbiBkaWFtZXR cbwA8UO8brLunfrE9iIAqtF CqRQulvSVfHPdcALK4Le5vu OKkPCQcjeW0n0UpYMlvYXHo t4InqGRgIZGbUzjjFATkjCO kFNJxodKvyVowvM8bItMaFh MyNFxwbGFpblxmMVxmczIwX EcvjvtzXBEwRJzrJ1jdJnIe LZHuuUruYGpim4ZgXNHsGXO rByZaNYOxNOBrc6ekSK56FG xwbGFpblxmMFxmczIwXGxhb fgwNNTtKBtyH7jkMqGvGEWf iSyxHZtdz0IpKRLvQTIzQhF ccGFyfQ== MICROSCOPIC o7rbjBVqURSduOS5QjNnOSU DESCRIPTION (test code oe1vzp1MgzPAzyCPfSKnzhI = 3371) HsplXzxf98bNI4yK35IZ0kX SGuMnS5GJKjudS6Lyn9PPPs AUZyxFFsC233v9eym9kxjkJ diHT8vZunKBXntflfVbW9TI poMHCkxjndXHa6XXpoWINov GH4ZVOabCJbH1PjCPKfJM2j rny5VJV2RYluVVAwQvD1EYG avAQaTGRrhHonIQiex474TV Z8KhDkDCQhmeBjsNufvZ0cG cEzSRFZNZTvt3DxAZMcUHPq cn0= SPECIAL STUDIES (test p4lnuNZfEKEexGL8NdJiXQP code = 3376) vh4pbq3UwyIOknJOnLKcpsO PrmmGvtp53tWP1kJ19LH1vB IMhEhZ0ADSmehX3Bfj6AZHv YXNdcZRbV588PTInFORonGo bldd6gE76TXMqhH3bqVBiYX rjsxUlJKwfybZrjuEfAbv1W QN4bNstIUPbtozcXdJ3CHwy JHLpqxkcBJv8WHzwMXGzuGA 0VHFrqIAlU7EtZHTzLZ6mxm a2WWM6PHspTVJdQmE8TRWmr QMzWZIjiXrjCCsaw386RRK1 IoNrOMGbtvZkyFsxfN7mNkS cZnMyMlxjZjEgVGhlIGludG KieMBqxLR7kM5sAL4eGSKnm JUyA6ZoFBRbbrEdzRWnGXD7 tEZmzDRwDK0gVPcdyDJua6g cg9XtM3ozgCzwmEM0ZE7tFV CxSQEwGTeqo8YsiX4bVndtW QMdE9SfKVTQY5SGUFXcZZMW Va9QHuCGKtJeMzVGPd6yNIm NUywgQUZCXHBhclxwYXJkXG TxKOQVm900po9cNRLesSYjp mYDbTPzaJ1iDFsxRWawMQal wSNnTMqlb0uaRNByz1g1aKS xXQPbydSpw3meVRtrcqKoKL FqvMNfdFMpWHQjc57tUOrih NcwzAptYDPif0GtmAhko7Sy DuHkNOmlv3RqU82tbLIjzQJ knVicKPMdxkLcQAUez29qf5 frTJDuVlZ1qIAjyGA7xKUtj XGce6RmfKeoOSKvp2urLOAm cs2qychlsYCjd2DrgC7gedl dEFjwhKZqtzIwCAEnj8e1kJ EwTGKpKEUhLXpbkJn9YQAgd 817az9rwqZ8qMIlPVA8PBpe YWJsZSBhcmUgZXZhbHVhdGV cPMFgvvHoCAXehiQElM47du 6unNM8z1SlYE9hy3HrfFS7I WNobmljYWwgdGVzdGluZyB3 CXGopUHlUh6lqADlUCI5WTX xxIktugYFxU5fQESwXNy9PW MuNrFmIeoxgcLQGACcI5FfP FPmhlLzyzatCQR8jD1nr7d0 GMmiOw8dRINolzrip2zahgY agEVhe3BhLOJjrvQul0UvFZ FdcsKgjLClOLViahLwvq1zc jYfBEEdFMIvH0DvweuwpXmn iyC7ACUjMRHbdVLujSpoSAB tGWx6ACfezxWdt9YcFnBfyf HlsAPzqmJwID8sAVOdpXAbp gUxUBF5XOYfQIDKKnTsOLLc j5ThAC4rVULnzMtwLQCesQ1 ju3RzDPWev37hECTuUPVNDA EgaGFzIGRldGVybWluZWQgd CrqkYBjeUEqZGWhAXVoJW0a NOTqcsTgbVJqj6QopPStmeJ qy8VlsdWaAMCmEPC5GmETvP OniQHunOTguoP1r4RmBZPyi oQmeVfsoXCjuPZbhGKdf8Ik sq0sRPPsn4ermXcyFR0lkPM iZSByZWdhcmRlZCBhcyBpbn Xmu4GqZ7T8yA3dQEqra8GmB u6xOANjx3QfzaPgDqRPbYsj MUznMp0pSTViauxrwMBlM0S ydGlmaWVkIHVuZGVyIHRoZS ZUeTmwlSLcvNENGZCeyhS2f 8J9WQuzfXTiscNjIL10MDQs GI1gmRAqmXEgr3JhXAm6KMK xD6pKLT95WRciLVKylHIfwD bwoGHjVCHeGVRzjcUlqz0rh BlzwNNsb99sdPU3nJO9RDId cC6tH5SiHItqRc9iTNGsson veKFpxDulBi3cnBFubS== Gross assessment was [facility] performed at ([facility], code = 2777) Department of Pathology, [address] [place] [address], Technical component [facility] was performed at ([facility], code = 2778) Department of Pathology, [address] [place] [address], Professional component [facility] was performed at ([facility], code = 2779) Department of Pathology, [address] [place] [address], [facility] [id number] 15:29:08 Test Item Value Reference Range Interpretation Comments Case Report (test code Surgical Pathology = 104) Report Case: [id number] Authorizing Provider: Logan Russo MD Collected: 06/18/2021 11:41 AM Ordering Location: [facility] Received: 06/19/2021 03:44 PM PERIOPERATIVE SERVICES Pathologist: Tom Paige MD Specimen: Mass, MITRAL VALVE MASS- for MICROBIOLOGY then pls send to Pathology DIAGNOSIS (test code = [id number] 3220) uZzEwMzNcZnRuYmpcdWMxIH tccnRmMVxlcGljOTYwMVxhb vTsIXRxsIMeI7ZgdpdlADig LB4aLN8ljFktqIAfqTVoOKB sVmRut0xuc050kXJrh3bkMY MNvkfwqTn1oYmfL08qe6W5C dyjJ67qhAEuAGZ6JGKhOUJx kNApOWMkQYU1PIIeeWBgW8n fXPDnRT3nxiwnHMpbMQymQP ZrkAQ1QPWlqGZoG1GwRAFwP QfiLPWejsf5JcBcUl6gkFVk eTcyMFxwYXJkXHBsYWluXGZ yPcIuXY8cXEGBYaDyTY2CCS JBTCBWQUxWRSwgREVCUklER P4RRySfWN3DJSFQEZQQExwp cGFyIEZJQlJJTiwgQUNVVEU qKJ2HDAEOPGWOV3NNRQILC3 FUI8JACPMQHcImI9ZXL2kQG TAYVKcVAj4tcWVzFDTHBKBA EZsvA4REMC3OCIKAUkPAFhE OJ7NNJ3LLQA5RG9EKGDNUBj LWGE4YNH1XWTCLBBYSLvDZU SWNPyMNL4qHW2wqYRjxBRTx N03PZnQYPUHKF18dB0dPDYU XYMPJT2EBG1sEU7mLTIvnK3 WYRWqUCnDDWxYHVFIGQW1SZ lMPVE8sQVHpjh14RTS0FpXv q2E6EMI0IKTpTZBfk1uxCXG mbGFuZzEwMzNcZnRuYmpcdW EjVNWqZvHow1bza956gTZro 1psLEHfCvH7bKKnIORyyRCk B882OTZjZUyvy5smz0AqYXQ kxLBmc4V9TKUVrtlmhXn9lT vaC54qv6V0UspqC1htRMXcS NQtY6XrMG8zBRFqYny9IGS3 GDN8VEBjLXQsN4QwPI2kHPF lbNZuXHl8f1qlcAflVAOnTF D7h3ooXTchvmQuQZ8vvp5wl Fh8c2zqpyDvNIRzQNVflFGG PBYoW2MvqOitNa4wbUx0bFx mTvdtRBK1Rbh4ZP4agb61fb d0aUclXPPcusfyJoU1XAziM UYuqduzXPt0YZgcTKYdzYR0 BSZonNRfK9XhIWWpQC7ioek 8LZM4HEvwOZJoGrG9QADucO CgSTOavIjnKPuat374ZGA6O pFcBJ3kY5Ffy8B3rO1qaBAm RNOgmEJbIrPbYZGcpi1nhBZ hDGtel1QqHNK6vsV5vKVruE NdIAGzVoF8VIwcKX7jal42X SQyVLX6xc2ajDPfpFbulvLj sPUhHNzoM3BcUAPud428LVZ lD5QaLHDsh4H9siEfEdCdML IavGM6lnM7RYKfEE6ohcrcp 2eyIYuuTVggAODsnlQ1gdS0 LCKueRAeK0XawE8qKIEsKB0 zoayjy5pfSAY4EKdtWPWlUM A0BtSzPTNts6Aowed2PnFia 3SawCXnDNqtA02pf739XLKz udQmB8thcNHginzkoOYqiqe vPDomtvZ3CAZqAIkrwcddGQ HjBPsmH9vjSmAwOSPuwOkjW Flne5TzGSMhTSYvZaZuqIYt ONAiAuk5QWHizZYdJGLsSaV mG9ytwtgoQhRBOTBbv3mdO9 amjJUTmLVfH7XgRRchpwBrO OvgJNnmNpXeYNMqTN72ELA7 MF[employer] CPT Code(s) (test code l1gpeSTxURGbgBD9SyVfQQQ = 3357) zp0tky0EyiZMnvZRiQIektN ThlhBywc43fHE7rU81CM8iG DHjLhC2ZMMzgvE1Yus0BVQk PTBcyUQhV458a1zbd4hbptV aaXD5dBqeSOPeuvafYmY9VW xiMLZfqmrsQUp1RCjuIOZiw YX8VLEfdPDpR3EmRAEyWG7w msi7BDQ2KBecABSnWdR4MLP riFCuRICyuOapHZmth528ST P3KqSjUAVuflEfyNbszX5wP tKvBPW0VOGrXWssXTfaETUY F1rgRLN3 CLINICAL HISTORY (test n8mcvFFeMTOalMK3CxRoUSC code = 3356) qc9nsf7MnvAXneEUuWLtesJ QdmrXtxu66yWB8pL03GJ0dB GTuIhZ9XGReltQ5Oth8TBBw PWMqtNSzT153w7acs1tciaC kqOO4eQozQCEchxweSkK3UH ywPYEugexdSDl1MYqnDDXxi JJ9ZYMjxADvS9JwWBJpOO0j ewk8CSZ9IMbwFXTqQtO7JBK woCKwIGBhbGrzRHfhb047US P2RgDzWSGxluVijFshhF7iQ rQcAKQWlsIqD8HpYPz1xGUf cGFyfQ== SPECIMEN SOURCE (test d9awmKElEYShuEX0UzCcRRQ code = 3377) sr4fki0SokGGmoTTcWUiqzU TrwrQeaf98kNJ6vJ40QF2zX AIoNcT8NAEkbqE7Shf7WZKy NWUrrQNwS664p9oto3bjhyY swYP5vJnpXNUuczqoZyC6VS spOGMuvlakBRa9RVodEFQrj SY9NWMouATaA2DzISHiWN4e bts9UNZ7CKayJOLpInT7GKC uxBNzOWUtoQfyWRphh650IG U9YdXuGINypjDjhJxhoU3cG nMyMCBNaXRyYWwgdmFsdmVc cGFyfQ== GROSS DESCRIPTION y8drjKLqOBIrfWHsHgPrYPT (test code = 3366) yNSPqn0bcQLQqlUBtPlCwEu NcZnRuYmpcdWMxXGRlZmYwe 8mlp419eJCjx4dvZGTaZzE1 aSZrYGRsuOFdY464TUGoRCo ha0ekk8NzUPAymECih9I0DL MXkgwhxPe5oZupN47ir4B9L jzsP5cqWBKxPEEwA4TmDM2v JZKdRij0WAJ8IJE6HEWrSPS zS5ZjYP4mNUTmsKYfHRi3j9 qgpFvhUIPmTAA5x6dsEGjmp qUhQW7ocb4wgKi4c6lsrcUd GMEbBBBisFOLGWDpA5ZygZx rFq0lcXd1yUddYqhvGNA1Yx n8CU8cqn48yee5rYnrBGNas jhoVwV7AQxqGEPavdahLOl7 MFxtYXJnbDcyMFxtYXJncjc yMFxtYXJndDcyMFxtYXJnYj fkYHdsNIRvUFJ0MRiqo223A OL9RRizw0bon6csmVBrKzs3 HRLlToSfWizyDBvpe1Gwf6p cIXDfjq6wDVZ8mZQofJshl2 S7iVUhYOYayQRfwjWhONYoT dZ2HMimES0uhp92GYGyVKE0 uf4rjCAsmHkpesHpdCSiUJo nU5JuQKShh932VRFvM9GxEX Hmw9A3saOvNwZbBNPaaKH2q vI5SOOwYWm0cMCrkjM6plPu oVMbE3beoT48EuDjbPQfU0X wyQ46PkCjzYBcD4DnnF92Je TgxONbT6UhrJ68VuHsxZLbZ QBxzVWyCs9zoYSosRNze4Yb gOPiKVyfV65wh323MTPtnqJ nK9cmtRDaqglonUErutedGV drxhU4GFRwJMHwNZuyGJSpZ GZzMjBcbGFuZzEwMzNcaGlj cJidDWdmKlDjUYIlRSacV8u cZjBcZnMyMCBBLiAgUmVjZW n6GOAmdI5fHl9ktQFcdT0ch DHjMTuyAOM9hVFyKGVhQXZm EQUqUP13Q2UbhC8pm1TkXXV yp15iWD7cJQAvyPZuSHjyyj FsdmUgbWFzcyIgaXMgYSAxL lGwA28dqK0zwCBzV0YkZLX1 IDAuMyBjbSBpbiBkaWFtZXR fkbW0HT1gkJahcnN8qJPidP YlMYxwuGOsSKoxZOR6Xw5dq FJlQEUcodP2q9NxZWpnWKCe r0TnfMWfLENjTztcILAylSD sRCBdenFbzTvrkI1qKxKxMz MyNFxwbGFpblxmMVxmczIwX WoodxgqQHYmKZyeH8tpWzSr SSJvdGgwSZlyy4NvZYDhBJH iBrNpFCUvLWMbf3zmJC92UN xwbGFpblxmMFxmczIwXGxhb xbiSUFuGEegL6jqNtZqJMJy pGezYZumk4IySDUwHQLkHrW ccGFyfQ== MICROSCOPIC z0vylZJxMMNxjWI7BoRrBDY DESCRIPTION (test code gi0wpy5VbzKXyhGHkDIpcrT = 3371) GmlwBywa85oZU9pN19VP5yN XVrBlH6HUFyjzS5Rrf0SKDe ZSAjoIFaS342b9thi1xfmjX lwXH5dWgfFWKqifuiTfI5QR eeDNTdbrzxYUz2DMalNRGja NF0KAFqiCIxW6DpFHVwIB6j rjx5RTX8ADyiIHUuUdO5KOT dbBRuSKFovPlaJBtmd287RI A2QoLvRDBqnqSiiUchoK5xY zLbQJMTDELmv8UlXQQtOHAv cn0= SPECIAL STUDIES (test b5jnaQCwNHYlzVH6IiPiLRW code = 3376) sw7djz8VjfMHtzDGuYZbpgC SlwjYwiu60pNB5kW00ZG0uY ABoEtM6YJZlgzH9Pfz2HWQc IVPkoVRrA443AYNhIFYjcKn zflw3bW70QPXzrC6xrWGmIH tpuvJpHNlggoUhrwJwDik4D OR7aTgrSPEamlybWrJ0DQlv WJKgyngmQEz4HVwrZKQjuNQ 1JGCtzQDkZ5SnKLPuUL8bmh r8GLD4VAbyOSTqYpK7QIWsj MJhNRPztIdcDHfcz264GQF7 JeVqVJJrxiAqkZhtyJ2qAnA cZnMyMlxjZjEgVGhlIGludG QpcZEqpBW9dZ5vHP6fZJVhq ZRcZ5YsOPMekvLsrXDdJBY9 wFKmfYMuBS9gZFmxiWHak3a jt0ZjT0clnNywuZU6HA9jQF YoFLXkLUlej7OjbL4bDaeaF FFzZ6NvMPQIY8HFZHLmJAQE Wa3ZQkMWRoIrQhDWMl7uZGo NUywgQUZCXHBhclxwYXJkXG UuAJIDr814jt4dLJAmwAAhb uJEbEWsiG8hQFkgMJexWPsv hVFnYLear8nqLMOej7c6nIX kDMOmsyHee4goOFiaijUeSR EnnTNobWYmVIQfx66oCQggf MigdXecGMQtp1FobGhbu1Hi DrUaNIvqj5QhA90hrYKiqQM zaNkqVUJdlrZtFWFpb58mv9 xmYLWiFhN3vFXwoWI5gFXwb BAky7CaxTlhYHCez2svJYZj td3hptgnxAAgn3AysT6eamj lICivsXFelxWwKNCdn7i5gV DxWSRpNFCoSWrpmEr3CETxf 436eb5awaO1fUVzVML9XErj YWJsZSBhcmUgZXZhbHVhdGV cTYDvxpJlROMielGEyA74nm 2ciPN3n4XeSN6bm5VqhNM0S WNobmljYWwgdGVzdGluZyB3 LYTzwCOyYf0rrGUqOQM3BGB ymYxprsMGlL7kQTUoQGf0PR JxJvPoAeoknsWPVTLaN7WmX TFuayFdvqsnNKG7nQ8zc8j6 NJbgDz3tIMTqubido4ybneP fbCLpd4ViLMGodjOqe5BhCM KfpmOerBAmAFYikaSxaa8yt bTcQEXmWGIiD2MrmeansRoo lvL6PQZkQLRiiPNukCisYEF gHHk4UBkizuIko9DwElJbqa UqpOOlivJrID5wOMYcrWGmb rJeGCO9BTRdYDEVYuFxFYIp w3AoHI7hYGDopYdyZTGszV7 ks5QvOYQgq08qLQDxPOBJAD EgaGFzIGRldGVybWluZWQgd IfgtBLlfJAmFPVdZRMjBL7y RJEbjhFrbGIyc7OqeYOcpwP dg1EqlbBgZBLyZRF6NaZXpM LvyYScrGCbnmP4p7ZcGQRlj xCdhWckcTDjfOKluZSpk0Fn mz5kJFVgs4xsiVdlFG8znTC iZSByZWdhcmRlZCBhcyBpbn Epo1NtZ4D9aA2qOPhyx6DrR k1fONNel1TjugStEuWUdLsr ZCguRt5mDRKfjafmgBZmY9M ydGlmaWVkIHVuZGVyIHRoZS ZPfQyseLIsyZEAFBExxqA1z 8B4IJtsnLLwygQrQW87JBEu YL5qrGUxuZTgf9SeQAm4XWT rL5zPPU24THsjUCQhuWCfcB guvPSoHGLqJKFekyZvqd3de GnuwMFba21qfOI8xVN1YEIc sX3oG3SqANeqHw3oRPXfsll mhEIcnLdaPi0lhYIwmK== Gross assessment was [facility] performed at ([facility], code = 2777) Department of Pathology, [address] [place] [address], Technical component [facility] was performed at ([facility], code = 2778) Department of Pathology, [address] [place] [id number], Professional component [facility] was performed at ([facility], code = 2779) Department of Pathology, [address] [place], [place] [id number], [facility] [id number] 15:29:08 Test Item Value Reference Range Interpretation Comments Case Report (test code Surgical Pathology = 104) Report Case: [id number] Authorizing Provider: Logan Russo MD Collected: 06/18/2021 11:41 AM Ordering Location: [facility] Received: 06/19/2021 03:44 PM PERIOPERATIVE SERVICES Pathologist: Tom Paige MD Specimen: Mass, MITRAL VALVE MASS- for MICROBIOLOGY then pls send to Pathology DIAGNOSIS (test code = [id number]) uZzEwMzNcZnRuYmpcdWMxIH tccnRmMVxlcGljOTYwMVxhb yEbTSUjwPSpF5XlrwwuRPoe HO8eYH8wlWuzjBApeCKmJPS iBsNzs0own506hGEug3weWI NOosjieHr9eGjaA80gc8V0Q elqK50ooXCwIOM2YSKoGFOx kRVuOISsNAH3UNGxgFZhO0n oNLTmKP1kxzicMFnhFVnmWB QlbVX3YMCetVGaD7NsJIUdY BzlLTDrspd2HmJsTo4eoRQj eTcyMFxwYXJkXHBsYWluXGZ iUaKwPD7fWYJRIaRvTR1GHA JBTCBWQUxWRSwgREVCUklER D8JBoJyRD1UDHYOFGYGIqcw cGFyIEZJQlJJTiwgQUNVVEU oCA2IZCANUVRBM0WXNYXGJ1 MFX3YCGPOPOoXnG2BYU3hRF KMZSPhKWw8dfVTyZCAPYLFT PRwgD6XFBQ5JSNBUGhIANxS XS7NFQ8EFWF9WO5MRDBQXZn KNLF0UEQ0IHYALXPIEHmFGA HRLNvRHW1sDE5zwJWchIWGz I96BKhQNIJEHH08tG4vKHAO AKLFQX4RRY9iBL1oEKHukV9 THTFaLYqNFDnZNFBBEVP6WD yZVPP0rAQTyxr92BQB8MzDx s0C0GYI1PGSbNBTaa7dlKBI mbGFuZzEwMzNcZnRuYmpcdW FkEPXaPuZjw2wht138iYVqz 4klANAsVnW0hPGtUJWlpAYx T858XYHsDQded8vne5YkZVW ylYIzi3G7TSHUesffmVq3fA gbX39vg4Q5CargY1jhCPPkW VJfV6RhNB4yPVIrEbs2EAX3 KEA9XWLiNXPcL0VmBR4gXYJ frSNuKSy5y8vpxTimTYVdOB H0s3aeCJhzatZzPC5svc2jx Vo0y7xrtnOoNQNaEKQbjIQW GJEhA3IlbJvuSz8boMr0mWu eWoxeGIJ1Gpd9HI8mtu10wh y6oUfzTNJrvnwjIhF1NYdgN QNxldzmYXh0ZPvbBHOajIH0 LBZmoBAfP7SuWPZbOJ5wnrs 9YBB6FYyqJSEqXhW5QDExhQ FvMIRjxXniMPqng336ORU1Q bVrQC8pP3Idn4D9aW9iqCJz BGFusPCnOuTsDOUgyc9toAO zSFsll0SzHIJ3njO8uSGxoG XvWOFqDjP3EPnbEX6pxr61H OOeCKM0eo9nwNHmmKhcfhWf eRSeFMkhF2QuVXUqy676FXK fL1RfXRMmm9M9rhKzDhIuZI PcrSU6tcB4RPOuTM6qboqtj 9qvDOusFKbkEUQudzL1naA1 EWSkiPAhQ0HwxY3hURMjXN7 ajoodz1wdGPU7MTtrWEAfFH X7SdLoIZEox4Oaanm2UeQkw 5UptRFbHIljQ57nh173VLCu xfUsI8nlhIGyzwvtmYYbvod rWMatnzT2RVNmWBvcgedoAY CcYBuoH5siQrSrPUDfzKypL Adxm3PuTBNuGANlVeZslOVy ESZiGro8ZNByuWAyDQXzFiS bM7tjkhflFkTUZHKaa9xjH9 kdaRBOrGYwP3PwAXsxiiKsC BuySSvwZjNpYZYmWJ38GXO7 BTFxqg95 CPT Code(s) (test code h2ncxINkPENapNS6ZnCgKKT = 3357) cv4voo2YuyCNeoBKmEYfovG RcgxNgim31mMH3kM89HB7rX GHrDpI1YIGftcH7Xsa7FQYs SAJxnGIxX517a2nrg3fzvyL diJR5eQjcFMOovrpsUiV7QN arBTYtuxtaRAl8GCkjCYWst GT4LMSggLQdP1LaKTWzIJ9w xxs4ZOS9BLhsTPPtLcG3FDY djEHlGTMepLfuKVxtf267TZ R2ZjAzRVCkbjLfyVzutH5yE nFpCQX3ULBuVYohVFnzLTJH K9lrZAX4 CLINICAL HISTORY (test k8dtwGFuAUBuoCL5ApSxTXE code = 3356) kb0hgr6FjsSJsnGHmTIjwpT AkbxCdsq86tXS8vY76OM2oQ UPvEuA9PJBzcrD9Fuj9MXVj BSRirWHlL669h5sql9jwdpE vtVS6mIhxQCYplokhKoB0EG mhUQTajahsUSe2ZUrqJPJil YO4BQTkgDPsJ2LrURVgPW2c sfx5LHI4QVrzDDAuUlW3MZY zeOLrUYRkrZzoZGpkl480JZ J2ZkVtYXXsmiLtzSvnpK7lD ePrBHHGfvSfR4YcPNr4vPXl cGFyfQ== SPECIMEN SOURCE (test m3ayfUEkXXRgwJX0JsEtDZM code = 3377) bd1qyy6OweQSkkSAqYIqvbD RtbqGrut90pVN7jJ69WR4bP CEkEkY6VFJnztJ7Uis8EZIs APJmsBFhV913k3kck9meykG rhNB7vGmwURSnfyfiTjL4NK zyVZObwlreRIb6ZZzoFNWwk JU6ITCyaOHeG7XuYHMiNS9l lzk9UKJ5LUovBNWdYmH9NGE apDRoVAGzrIomXLpvo141MX E3JyLpZKYzxuUqbOiyqM2dE nMyMCBNaXRyYWwgdmFsdmVc cGFyfQ== GROSS DESCRIPTION x3nrsFEeAOSjdFDkKyTcMXT (test code = 3366) pQVTfc0vpGFMakFGiXrCdTy NcZnRuYmpcdWMxXGRlZmYwe 7ryt657gCHom0rtDLRcLaC6 eRAjTEFtcUAqE623MRLtKQo iu9hpe7PqWEIyxSNss5H9ZC DOikenyWv9wSttF89ct6U8Y qxqA6rdUKOeLESoC9PmTI3x UJBzIyz6TKV5ONR1PNHpUWH hJ2TtPA4jVZAwlUNuYFg8s2 ydkVbuMWMrWEO4f0bbMRexr nQiFK8sua9baWf9o4szbpGb IVAyTUZwcQOIAYRsY7CdoAs vCv3cdHv6rWksKnxfBAV2Zm q3CW5omt87kbk9zDktLTHwa hxlNcA0SBglFGKpqjqgCBh3 MFxtYXJnbDcyMFxtYXJncjc yMFxtYXJndDcyMFxtYXJnYj vgILdtBEWhTQY9OUktr426D WC4VGlgj4kmq8iwaIKlFie4 WDUbNgBgZrymUKcta6Nby9b hORQydp7aRLM2qWBwcQqzl5 Y8sMWrGTIeoDZuqyGcPDCxX qG2VEymJR1dqx91ULAwDRT6 pf4ckDBbxLpouxAmkBPvBVw oA5LxWPWnl064BNJsH0WfRR Rbp8P8klRqFlUdBFJdgKL7t dH1EKLyNIi8gJVfucF1arSt gUKlJ5johU38AoYuiVEyC7N wsZ58XbRyqARgS2EyqN41Nw JyiBOjY7YfdH67AdDzvBUlY VUqyLJwZi8lhDLmnQAeu4Xe rHClJLoqS04ql340NIHybhU lK2hjaIVxabqoaXDsbxetNE uuxvZ4YYNtCBYxPOlsZGXrL GZzMjBcbGFuZzEwMzNcaGlj oEpnISkeHtBfNUXtCJlmV5n cZjBcZnMyMCBBLiAgUmVjZW b1WFRfiQ3tBz0brIOagT6lu MMiYTmiWNM9qSAeWOTrMPJb DFUiLO75A5XxhH4sx9NkUPT yk76mGY8zYKYtwHQhNZyiuw FsdmUgbWFzcyIgaXMgYSAxL lPfF94coP4qgWTkH3GdKWF3 IDAuMyBjbSBpbiBkaWFtZXR chhK3RD7vxPmptrO0tEQzpA YvTAznbJWvQFdoXFF8Ua5dt ROdSMIgcbK3x4BvIHopEMUc x6PorZLvXOSvCyeaLNVncTQ iMZNyjxJlhGzsmI7dIrWaAt MyNFxwbGFpblxmMVxmczIwX BljempzBSUyJQdxA7yrTqRz NPAoxJrvGZqyl2JjLVMkOSQ vYsCrKZShTFWyi7mfGV78UT xwbGFpblxmMFxmczIwXGxhb bfwDPIjDIluW2lcKzQyHXUo kVyqQQbyw2XlBQPqWGOxDkM ccGFyfQ== MICROSCOPIC u7gmcLRbIULtgTJ8GsEeXEV DESCRIPTION (test code ne0xbk9GeaHDkuFVaPPnfzR = 3371) YeexLwzs86eGT0aM53KG6jS XRaBnV2QCCpttY6Vdk8ZONv PZPxkBBxK768l7iwo4tnksA maRE7mYciTVKfoajkCeX5VS wvBUEhzuxlNQo0TXvuHWJnn TM7FMTrrQNtP2ZbPVQqQE4y qva2LZO8SVzdZIFiAtR9CUR trWSfJSGioUunJTeox499UM F3IaRqQGLsbqSzlPgzoL0pR cZcOAPGFEDpd1FzXFVhCYUh cn0= SPECIAL STUDIES (test i0jlpJTlXUSxmMY3HiDhVAN code = 3376) jd2ghk2IobZYmjNHyHEchsD HfdpCeie03mPE0pA92RC9pK OHwVwB3MWPoobP9Ike1HVYw CEMykJRhF542CFVjUWVnwGk xokj6gC08BKBwuZ9dfKQeMM zoebDvEYhwcrFmndItRcj6P JD8fPokSXCpwowbHiH3YQte WXFyqurxJFn9TLabKIIiaKS 9RWZxgKLgY5LpBBPzGJ8ldh h6MCB2KFobARIuWiB7LCQzf YMiNSFtdZlnMSxgl790GYF3 IxNyGSGwybNurUlooW8rFqO cZnMyMlxjZjEgVGhlIGludG XteBTarRC0kB5mVN8yOHWjz YIcH4NdGAWekcAijLCtVMS7 bXKnlMFnIU5fGNkdbYUen6z dj4RnJ8elxTuiwQW7EE5hLK XzDROdYIncc8TtiI6iCqxjV ETrK8CwEFKAC1MZIKZcYYAD Xm8AJfRAFqUcLrKSPk9kYVu NUywgQUZCXHBhclxwYXJkXG IlKBIFa364zg0bCTQcaKFkv eYRbIJefF5aRHkuMLosPHao hEPiDQvps2ykJNLlp5x6mMG nHXFtycNkd3liLVantnBsUU ToeTBwpIKaTBWhe14tYXwpk BckxZrjBRScu7DalLshc2Ex SuPiALulq5AaY36uoTNvxQB fnPsnOEMehwLjLEOsf20fc3 kzSFXpBmI9wKHbeBQ1fIVbp VMnl1DjwNrmYDQpq2plTFXj zf6jmzndiNZez4HsmT7mzck hIFwgfKPaqeEzQDFjx0d9fC DfGJLdPIUfFDsflSc6WFSic 660br8vvdG5oVDdYEF2SZwh YWJsZSBhcmUgZXZhbHVhdGV iKCQmpeWdAMRvagECdX33pv 9qaDM7u8RnEY4fa1PpeRJ9P WNobmljYWwgdGVzdGluZyB3 NICnlQOiAp5fvOCmOIU3JXB zlGwsqlSRqH7nCPBpBYo6UJ KqWxCdNazainZIKOHkU4ShT OXfylKsgzfsPRV7jV0am0b2 QTcgTk4zCAEjsggtj9kokqV orQMgy0UwFXYypkBic9HwOF PrzqDwhHPoMYJwsbPcnz7zl jYfFHJtLQJhK5BhvclnoEik jbA4ZGQuCUMfgGJpuQfhONK xBYw1TNryjuIxj6FrFuDwsb DgnXSmylBnVA9wGZIrsEOwg gDpOLX2OPKiEPFLCfBvLCPn z8KwAA2oHPPruSgyRNCunY5 rv3EzFQMmk87aMGNaSVAQXX EgaGFzIGRldGVybWluZWQgd BfokDIbsQBpHANdDUOwTI5f QVBfoqWifIOxm2LfpIIxjnI ka9OpyfFkVRPtMHE0TgWAvR SouNUjaMDvtmJ7h0VyXOTbt eXwoPfroLQxhHEziEEmj0Kq gh7hNPSrn8tjdSzfCI4xaQI iZSByZWdhcmRlZCBhcyBpbn Suz0VzV2P0zI9zURwxm7LrA y2fVHHta0AeoeErHhIOgFgj ACvnDa9hSCWcnttanRGtJ3H ydGlmaWVkIHVuZGVyIHRoZS BBrQusnCIlcAAUIWLmbdT3t 4M6MJxbpCIpkpLhYD38GJGd RW3guGWuaMVgl9OzMIt9PYI fC3pVCQ77KHyxJFFfkSIlgZ lrdZYdLXPrOYCptuYvmc7tx HyieHBsn52riCB3jGB5IKDy tW5uD4XvGGibKj2vHLFoknq lmLOapDskRk1yfTKzzV== Gross assessment was [facility] performed at ([facility], code = 2777) Department of Pathology, [address] [place] [address], Technical component [facility] was performed at ([facility], code = 2778) Department of Pathology, [address] [place] [address], Professional component [facility] was performed at ([facility], code = 2779) Department of Pathology, [address] [place] [address], [facility] [id number] 15:29:08Surgical Pathology Report Case: [id number] Authorizing Provider: Logan Russo MD Collected: 06/18/2021 11:41 AM Ordering Location: [facility] Received: 06/19/2021 03:44 PM PERIOPERATIVE SERVICES Pathologist: Tom Paige MD Specimen: Mass, MITRAL VALVE MASS- for MICROBIOLOGY then pls send to Pathology A. HEART, MITRAL VALVE, DEBRIDEMENT AND REPAIR:FIBRIN, ACUTE INFLAMMATORY AGGREGATE AND CALCIFICATION.SPECIAL STAINS FOR INFECTIOUS ORGANISMS PENDING, ADDENDUM TO FOLLOW. CORRELATION WITH MICROBIOLOGICAL STUDIES IS RECOMMENDED. Signing Pathologist Direct Phone Line: [phone] signed by Tom Paige MD on 06/24/2021 at 3:29 [id number], [id number] valveA. Received in formalin labeled with the patient's information and "mitral valve mass" is a 1.5 cm in length by 0.3 cm in diameter robert-pink tissue, which is submitted in toto in cassette A1.MP (resident)Performed.The interpretation of this case included the use of immunohistochemistry or special stains.BLOCK A1- BROWN AND NORMA JOHNSON, AFBControl Slides Examined: In-house known positive controls were evaluated along with the test tissue. These control slides run alongside of the patients sample show appropriate staining.Internal positive and negative controls when available are evaluated Immunohistochemistry technical testing was performed at [facility], Pathology Laboratory where it was developed and its performance characteristics were determined. It has not been cleared or approved by the U.S. Food and Drug Administration. The FDA has determined that such clearance or approval is not necessary. The test is used for clinical purposes. It should not be regarded as investigational or for research. This laboratory is certified under the Clinical Laboratory Improvement Amendments of 1988 (CLIA-88) as qualified to perform high complexity clinical laboratory testing.[facility], Department of Pathology, [address] [place] [address], [facility] of [facility], [address] [place] [address], [facility], [facility] of [facility]ology, [address] [place] [address], [id number] 12:37:44 Test Item Value Reference Range Interpretation Comments POC-GLUCOSE METER 98 mg/dL 70-110 : TESTED A T [facility] 6720 (BEAKER) (test code = [facility], 1538) 73563: University Services Program Associate/Techni kelle ID = [id number] for Kathleen fay (contract), [facility] POCT-GLUCOSE [id number] 08:40:16 Test Item Value Reference Range Interpretation Comments POC-GLUCOSE METER 120 mg/dL 70-110 H : TESTED A T [facility] 6720 (BEAKER) (test code = [facility], 1538) 80635: [employer] Services Program Associate/Techni kelle ID = [id number] for Aditya brewer (contract), [facility] BASIC METABOLIC [id number] 04:46:57 Test Item Value Reference Range Interpretation Comments SODIUM (BEAKER) 138 meq/L 136-145 (test code = 381) POTASSIUM (BEAKER) 3.8 meq/L 3.5-5.1 (test code = 379) CHLORIDE (BEAKER) 103 meq/L 98-107 (test code = 382) CO2 (BEAKER) (test 20 meq/L 22-29 L code = 355) BLOOD UREA NITROGEN 32 mg/dL 7-21 H (BEAKER) (test code = 354) CREATININE (BEAKER) 4.30 mg/dL 0.57-1.25 H (test code = 358) GLUCOSE RANDOM 135 mg/dL 70-105 H (BEAKER) (test code = 652) CALCIUM (BEAKER) 8.4 mg/dL 8.4-10.2 (test code = 697) EGFR (BEAKER) (test 10 mL/min/1.73 ESTIMA LEVI GFR IS code = 1092) sq m NOT ACCURATE CREATININE CLEARANCE IN PREDICTING GLOMERULAR FILTRATION RATE . ESTIMATED GFR I S NOT APPLICABLE FOR DIALYSIS PATIEN TS. [employer] Services Program Associate ID - HIEN MERAZ, CHEST, 1 VIEW, NON [id number] 04:07:00Reason for exam:->post-opShould this be performed at the bedside?->Yes [facility] 1955 Sex: FFINAL REPORT RAD, CHEST, 1 VIEW, NON DEPT INDICATION: post-op NAZ RISON: Prior day's exam FINDINGS: Portable frontal view of the chest. IMPRESSION: Support Lines: Stable. Lungs and pleura: No interval consolidation or sizable effusion. No pneumothorax. Heart and mediastinum: Stable contours. Additional findings: None. Signed: Andrew Caryepwade Verified Date/Time: 06/24/2021 04:07:26 [id number] 03:54:16 Test Item Value Reference Range Interpretation Comments PHOSPHORUS (BEAKER) (test code = 4.3 mg/dL 2.3-4.7 604) [employer] Services Program Associate ID - HIEN [id number] 03:54:15 Test Item Value Reference Range Interpretation Comments MAGNESIUM (BEAKER) (test code = 2.4 mg/dL 1.6-2.6 627) [employer] Services Program Associate ID - HIEN [id number] 03:40:54 Test Item Value Reference Range Interpretation Comments PARTIAL THROMBOPLASTIN TIME 40.8 seconds 22.5-36.0 H (BEAKER) (test code = 760) PROTHROMBIN TIME/[id number] 03:39:49 Test Item Value Reference Range Interpretation Comments PROTIME (BEAKER) 13.1 seconds 11.9-14.2 (test code = 759) INR (BEAKER) (test 1.01 See_Comment [Automat ed message] code = 370) The system [employer] management generated this result transmitted ref erence range: <=5.90. The reference range was not used to int erpret this result as normal/abnormal . RECOMMENDED COUMADIN/WARFARIN INR THERAPY RANGESSTANDARD DOSE: 2.0 - 3.0 Includes: PROPHYLAXIS forvenous thrombosis, systemic embolization; TREATMENT for venous thrombosis and/or pulmonary embolus.HIGH RISK: Target INR is 2.5-3.5 for patients with mechanical heart valves.CBC (HEMOGRAM ONLY)2021-06-24 03:23:24 Test Item Value Reference Range Interpretation Comments WHITE BLOOD CELL COUNT (BEAKER) 5.1 K/ L 3.5-10.5 (test code = 775) RED BLOOD CELL COUNT (BEAKER) 2.94 M/ L 3.93-5.22 L (test code = 761) HEMOGLOBIN (BEAKER) (test code = 8.6 GM/DL 11.2-15.7 L 410) HEMATOCRIT (BEAKER) (test code = 27.2 % 34.1-44.9 L 411) MEAN CORPUSCULAR VOLUME (BEAKER) 92.5 fL 79.4-94.8 (test code = 753) MEAN CORPUSCULAR HEMOGLOBIN 29.3 pg 25.6-32.2 (BEAKER) (test code = 751) MEAN CORPUSCULAR HEMOGLOBIN CONC 31.6 GM/DL 32.2-35.5 L (BEAKER) (test code = 752) RED CELL DISTRIBUTION WIDTH 19.2 % 11.7-14.4 H (BEAKER) (test code = 412) PLATELET COUNT (BEAKER) (test code 68 K/CU MM 150-450 L = 756) MEAN PLATELET VOLUME (BEAKER) 10.5 fL 9.4-12.3 (test code = 754) NUCLEATED RED BLOOD CELLS (BEAKER) 0 /100 WBC 0-0 (test code = 413) POCT-GLUCOSE [id number] 21:07:58 Test Item Value Reference Range Interpretation Comments POC-GLUCOSE METER 143 mg/dL 70-110 H : TESTED A T [facility] 67[facility] ([employer]) (test code = [place], 1538) 60[address]: [employer] Services Program Associate/Techni kelle ID = [id number] for Sheryl Bergeron POCT-GLUCOSE [id number] 16:23:05 Test Item Value Reference Range Interpretation Comments POC-GLUCOSE METER 126 mg/dL 70-110 H : TESTED A T [facility] 6720 ([employer]) (test code = [place], 1538) 92603: [employer] Services Program Associate/Techni kelle ID = [id number] for OSMANY VOGEL BASIC METABOLIC [id number] 13:28:45 Test Item Value Reference Range Interpretation Comments SODIUM (BEAKER) 138 meq/L 136-145 (test code = 381) POTASSIUM (BEAKER) 3.5 meq/L 3.5-5.1 (test code = 379) CHLORIDE (BEAKER) 104 meq/L 98-107 (test code = 382) CO2 (BEAKER) (test 24 meq/L 22-29 code = 355) BLOOD UREA NITROGEN 27 mg/dL 7-21 H (BEAKER) (test code = 354) CREATININE (BEAKER) 3.79 mg/dL 0.57-1.25 H (test code = 358) GLUCOSE RANDOM 134 mg/dL 70-105 H (BEAKER) (test code = 652) CALCIUM (BEAKER) 8.1 mg/dL 8.4-10.2 L (test code = 697) EGFR (BEAKER) (test 12 mL/min/1.73 ESTIMA LEVI GFR IS code = 1092) sq m NOT ACCURATE CREATININE CLEARANCE IN PREDICTING GLOMERULAR FILTRATION RATE . ESTIMATED GFR I S NOT APPLICABLE FOR DIALYSIS PATIEN TS. [employer] Services Program Associate ID - HIEN MPOCT-GLUCOSE [id number] 11:56:58 Test Item Value Reference Range Interpretation Comments POC-GLUCOSE METER 122 mg/dL 70-110 H : TESTED A T [facility] 6720 (BEAKER) (test code = [place] [facility], 1538) 14418: [employer] Services Program Associate/Techni kelle ID = [id number] for OSMANY VOGEL 2D Echo W/Doppler(CW/PW/Color)2021-06-23 08:20:29Ejection FractionSLEH ECHO [facility]Do[facility](CW/PW/Color)2021-06-23 08:20:29Ejection FractionSLEH ECHO [facility] W/Doppler(CW/PW/Color) 2021-06-23 08:20:29Ejection FractionSLEH ECHO [facility] W/Doppler(CW/PW/Color)2021-06-23 08:20:29Ejection FractionSLEH ECHO [facility] W/Doppler(CW/PW/Color)2021-06-23 08:20:29Ejection FractionSLEH ECHO [facility] W/Doppler(CW/PW/Color) 2021-06-23 08:20:29Ejection FractionSLEH ECHO [facility] W/Doppler(CW/PW/Color)2021-06-23 08:20:29Ejection FractionSLEH ECHO [facility] W/Doppler(CW/PW/Color)2021-06-23 08:20:29Ejection FractionSLE ECHO [facility] W/Doppler(CW/PW/Color) 2021-06-23 08:20:29Ejection FractionSLE [facility]CHO [facility] W/Doppler(CW/PW/Color)2021-06-23 08:20:29Ejection FractionSLE [facility] [id number] 07:43:14 Test Item Value Reference Range Interpretation Comments POC-GLUCOSE METER 111 mg/dL 70-110 H : [facility] 6720 [facility] (test code = [place], 1538) 411[address]: University Services Program Associate/Techni kelle ID = [id number] for BE [employer], OSMANY BASIC METABOLIC [id number] 05:48:55 Test Item Value Reference Range Interpretation Comments SODIUM (BEAKER) 138 meq/L 136-145 (test code = 381) POTASSIUM (BEAKER) 3.9 meq/L 3.5-5.1 (test code = 379) CHLORIDE (BEAKER) 104 meq/L 98-107 (test code = 382) CO2 (BEAKER) (test 22 meq/L 22-29 code = 355) BLOOD UREA NITROGEN 24 mg/dL 7-21 H (BEAKER) (test code = 354) CREATININE (BEAKER) 3.45 mg/dL 0.57-1.25 H (test code = 358) GLUCOSE RANDOM 124 mg/dL 70-105 H (BEAKER) (test code = 652) CALCIUM (BEAKER) 8.3 mg/dL 8.4-10.2 L (test code = 697) EGFR (BEAKER) (test 13 mL/min/1.73 ESTIMA LEVI GFR IS code = 1092) sq m NOT ACCURATE CREATININE CLEARANCE IN PREDICTING GLOMERULAR FILTRATION RATE . ESTIMATED GFR I S NOT APPLICABLE FOR DIALYSIS PATIEN TS. [employer] Services Program Associate ID - HIEN [id number] 05:28:52 Test Item Value Reference Range Interpretation Comments PHOSPHORUS (BEAKER) (test code = 3.7 mg/dL 2.3-4.7 604) [employer] Services Program Associate ID - HIEN [id number] 05:28:51 Test Item Value Reference Range Interpretation Comments MAGNESIUM (BEAKER) (test code = 2.2 mg/dL 1.6-2.6 627) [employer] Services Program Associate ID - HIEN MRAD, CHEST, 1 VIEW, NON [id number] 05:08:00Reason for exam:->post-opShould this be performed at the bedside?->Yes [facility] : 1955 Sex: FFINAL REPORT RAD, CHEST, 1 VIEW, NON DEPT INDICATION: post-op NAZ RISON: Prior day's exam FINDINGS: Portable frontal view of the chest. IMPRESSION: Support Lines: Stable. Lungs and pleura: There is improved aeration of both lungs. No new airspace consolidation. No pneumothorax. Heart and mediastinum: Stable contours. Additional findings: None. Signed: Aldo Cary MDReport Verified Date/Time: 06/23/2021 05:08:22 [id number] 03:01:03 Test Item Value Reference Range Interpretation Comments PARTIAL THROMBOPLASTIN TIME 35.7 seconds 22.5-36.0 (BEAKER) (test code = 760) PROTHROMBIN TIME/[id number] 03:00:01 Test Item Value Reference Range Interpretation Comments PROTIME (BEAKER) 13.3 seconds 11.9-14.2 (test code = 759) INR (BEAKER) (test 1.03 See_Comment [Automat ed message] code = 370) The system [employer] management generated this result transmitted ref erence range: <=5.90. The reference range was not used to int erpret this result as normal/abnormal . RECOMMENDED COUMADIN/WARFARIN INR THERAPY RANGESSTANDARD DOSE: 2.0 - 3.0 Includes: PROPHYLAXIS forvenous thrombosis, systemic embolization; TREATMENT for venous thrombosis and/or pulmonary embolus.HIGH RISK: Target INR is 2.5-3.5 for patients with mechanical heart valves.CBC (HEMOGRAM ONLY)2021-06-23 02:54:00 Test Item Value Reference Range Interpretation Comments WHITE BLOOD CELL COUNT (BEAKER) 4.9 K/ L 3.5-10.5 (test code = 775) RED BLOOD CELL COUNT (BEAKER) 3.12 M/ L 3.93-5.22 L (test code = 761) HEMOGLOBIN (BEAKER) (test code = 9.0 GM/DL 11.2-15.7 L 410) HEMATOCRIT (BEAKER) (test code = 29.4 % 34.1-44.9 L 411) MEAN CORPUSCULAR VOLUME (BEAKER) 94.2 fL 79.4-94.8 (test code = 753) MEAN CORPUSCULAR HEMOGLOBIN 28.8 pg 25.6-32.2 (BEAKER) (test code = 751) MEAN CORPUSCULAR HEMOGLOBIN CONC 30.6 GM/DL 32.2-35.5 L (BEAKER) (test code = 752) RED CELL DISTRIBUTION WIDTH 19.7 % 11.7-14.4 H (BEAKER) (test code = 412) PLATELET COUNT (BEAKER) (test code 67 K/CU MM 150-450 L = 756) MEAN PLATELET VOLUME (BEAKER) 11.1 fL 9.4-12.3 (test code = 754) NUCLEATED RED BLOOD CELLS (BEAKER) 0 /100 WBC 0-0 (test code = 413) POCT-GLUCOSE [id number] 22:23:22 Test Item Value Reference Range Interpretation Comments POC-GLUCOSE METER 146 mg/dL 70-110 H : TESTED A T [facility] 6720 (BEAKER) (test code = [facility] [place], 1538) 12997: University Services Program Associate/Techni kelle ID = [id number] for CRISTINA LAM MS POCT-GLUCOSE [id number] 18:28:19 Test Item Value Reference Range Interpretation Comments POC-GLUCOSE METER 101 mg/dL 70-110 : TESTED A T [facility] 6720 (BEAKER) (test code = [facility] [employer] [place], 1538) 355[address]: University Services Program Associate/Techni kelle ID = [id number] for Tacos rene (contract), Amb er BASIC METABOLIC [id number] 14:57:30 Test Item Value Reference Range Interpretation Comments SODIUM (BEAKER) 140 meq/L 136-145 (test code = 381) POTASSIUM (BEAKER) 3.7 meq/L 3.5-5.1 (test code = 379) CHLORIDE (BEAKER) 105 meq/L 98-107 (test code = 382) CO2 (BEAKER) (test 24 meq/L 22-29 code = 355) BLOOD UREA NITROGEN 15 mg/dL 7-21 (BEAKER) (test code = 354) CREATININE (BEAKER) 2.11 mg/dL 0.57-1.25 H (test code = 358) GLUCOSE RANDOM 87 mg/dL 70-105 (BEAKER) (test code = 652) CALCIUM (BEAKER) 8.2 mg/dL 8.4-10.2 L (test code = 697) EGFR (BEAKER) (test 24 mL/min/1.73 ESTIMA LEVI GFR IS code = 1092) sq m NOT ACCURATE CREATININE CLEARANCE IN PREDICTING GLOMERULAR FILTRATION RATE . ESTIMATED GFR I S NOT APPLICABLE FOR DIALYSIS PATIEN TS. University Services Program Associate ID - AAHAMIDPOCT-GLUCOSE [id number] 12:37:53 Test Item Value Reference Range Interpretation Comments POC-GLUCOSE METER 69 mg/dL 70-110 L : TESTED A T [facility] 6720 (BEAKER) (test code = [place], 1538) 740[address]: [employer] Services Program Associate/Techni kelle ID = [id number] for Hole y (contract), Amb er Oxygen saturation, [id number] 10:49:59 Test Item Value Reference Range Interpretation Comments O2 Saturation (Measured) (test code = 79.8 % 12935-9) [facility], [id number] 10:49:59 Test Item Value Reference Range Interpretation Comments O2 Saturation (Measured) (test code = 79.8 % 16387-8) [facility], [id number] 10:49:59 Test Item Value Reference Range Interpretation Comments O2 Saturation (Measured) (test code = 79.8 % 10783-8) [facility], [id number] 10:49:59 Test Item Value Reference Range Interpretation Comments O2 Saturation (Measured) (test code = 79.8 % 64066-4) [facility], [id number] 10:49:59 Test Item Value Reference Range Interpretation Comments O2 Saturation (Measured) (test code = 79.8 % 79353-6) [facility], [id number] 10:49:59 Test Item Value Reference Range Interpretation Comments O2 Saturation (Measured) (test code = 79.8 % 23684-0) [facility], [id number] 10:49:59 Test Item Value Reference Range Interpretation Comments O2 Saturation (Measured) (test code = 79.8 % 19554-1) [facility], [id number] 10:49:59 Test Item Value Reference Range Interpretation Comments O2 Saturation (Measured) (test code = 79.8 % 72605-1) [facility], [id number] 10:49:59 Test Item Value Reference Range Interpretation Comments O2 Saturation (Measured) (test code = 79.8 % 52508-2) [facility], [id number] 10:49:59 Test Item Value Reference Range Interpretation Comments O2 Saturation (Measured) (test code = 79.8 % 41524-2) [facility] CenterOXYGEN SATURATION, [id number] 10:49:59 Test Item Value Reference Range Interpretation Comments O2 SATURATION (MEASURED) (BEAKER) 79.8 % (test code = 1455) BASIC METABOLIC [id number] 07:15:45 Test Item Value Reference Range Interpretation Comments SODIUM (BEAKER) 138 meq/L 136-145 (test code = 381) POTASSIUM (BEAKER) 3.7 meq/L 3.5-5.1 (test code = 379) CHLORIDE (BEAKER) 106 meq/L 98-107 (test code = 382) CO2 (BEAKER) (test 21 meq/L 22-29 L code = 355) BLOOD UREA NITROGEN 35 mg/dL 7-21 H (BEAKER) (test code = 354) CREATININE (BEAKER) 4.66 mg/dL 0.57-1.25 H (test code = 358) GLUCOSE RANDOM 75 mg/dL 70-105 (BEAKER) (test code = 652) CALCIUM (BEAKER) 8.3 mg/dL 8.4-10.2 L (test code = 697) EGFR (BEAKER) (test 9 mL/min/1.73 ESTIMAT ED GFR IS code = 1092) sq m NOT ACCURATE CREATININE CLEARANCE IN PREDICTING GLOMERULAR FILTRATION RATE . ESTIMATED GFR I S NOT APPLICABLE FOR DIALYSIS PATIEN TS. [employer] Services Program Associate ID - DBRAD, CHEST, 1 VIEW, NON [id number] 03:19:00Reason for exam:->post-opShould this be performed at the bedside?->Yes [facility] 1955 Sex: FFINAL REPORT CLINICAL INDICATION: post-op Comparison: 06/21/2021 The cardiomediastinal contours are stable. The lung volumes remain low. Central pulmonary vascular congestion and bilateral parenchymal opacities are unchanged. There is no pneumothorax. Support lines are stable. Signed: Braxton Quintero MDReport Verified Date/Time: 06/22/2021 03:19:08 BASIC METABOLIC [id number] 02:00:09 Test Item Value Reference Range Interpretation Comments SODIUM (BEAKER) 137 meq/L 136-145 (test code = 381) POTASSIUM (BEAKER) 3.9 meq/L 3.5-5.1 Specimen slightly (test code = 379) hemolyzed CHLORIDE (BEAKER) 105 meq/L 98-107 (test code = 382) CO2 (BEAKER) (test 19 meq/L 22-29 L code = 355) BLOOD UREA NITROGEN 34 mg/dL 7-21 H (BEAKER) (test code = 354) CREATININE (BEAKER) 4.63 mg/dL 0.57-1.25 H Specimen slightly (test code = 358) hemolyzed GLUCOSE RANDOM 81 mg/dL 70-105 (BEAKER) (test code = 652) CALCIUM (BEAKER) 8.4 mg/dL 8.4-10.2 (test code = 697) EGFR (BEAKER) (test 10 mL/min/1.73 ESTIMA LEVI GFR IS code = 1092) sq m NOT ACCURATE CREATININE CLEARANCE IN PREDICTING GLOMERULAR FILTRATION RATE . ESTIMATED GFR I S NOT APPLICABLE FOR DIALYSIS PATIEN TS. [employer] ID - [id number] 01:57:06 Test Item Value Reference Range Interpretation Comments MAGNESIUM (BEAKER) 2.5 mg/dL 1.6-2.6 Specimen slightly (test code = 627) hemolyzed [employer] [facility] ID - [id number] 01:57:06 Test Item Value Reference Range Interpretation Comments PHOSPHORUS (BEAKER) 5.0 mg/dL 2.3-4.7 H Specimen slightly (test code = 604) hemolyzed [employer] [facility] ID - [id number] 01:54:46 Test Item Value Reference Range Interpretation Comments PARTIAL THROMBOPLASTIN TIME 37.8 seconds 22.5-36.0 H (BEAKER) (test code = 760) PROTHROMBIN [id number] 01:53:47 Test Item Value Reference Range Interpretation Comments PROTIME (BEAKER) 16.4 seconds 11.9-14.2 H (test code = 759) INR (BEAKER) (test 1.34 See_Comment [Automat ed message] code = 370) The system [employer] management generated this result transmitted ref erence range: <=5.90. The reference range was not used to int erpret this result as normal/abnormal . RECOMMENDED COUMADIN/WARFARIN INR THERAPY RANGESSTANDARD DOSE: 2.0 - 3.0 Includes: PROPHYLAXIS forvenous thrombosis, systemic embolization; TREATMENT for venous thrombosis and/or pulmonary embolus.HIGH RISK: Target INR is 2.5-3.5 for patients with mechanical heart valves.CBC (HEMOGRAM ONLY)2021-06-22 01:41:40 Test Item Value Reference Range Interpretation Comments WHITE BLOOD CELL COUNT (BEAKER) 3.9 K/ L 3.5-10.5 (test code = 775) RED BLOOD CELL COUNT (BEAKER) 2.83 M/ L 3.93-5.22 L (test code = 761) HEMOGLOBIN (BEAKER) (test code = 8.2 GM/DL 11.2-15.7 L 410) HEMATOCRIT (BEAKER) (test code = 26.6 % 34.1-44.9 L 411) MEAN CORPUSCULAR VOLUME (BEAKER) 94.0 fL 79.4-94.8 (test code = 753) MEAN CORPUSCULAR HEMOGLOBIN 29.0 pg 25.6-32.2 (BEAKER) (test code = 751) MEAN CORPUSCULAR HEMOGLOBIN CONC 30.8 GM/DL 32.2-35.5 L (BEAKER) (test code = 752) RED CELL DISTRIBUTION WIDTH 19.9 % 11.7-14.4 H (BEAKER) (test code = 412) PLATELET COUNT (BEAKER) (test code 58 K/CU MM 150-450 L = 756) MEAN PLATELET VOLUME (BEAKER) 11.3 fL 9.4-12.3 (test code = 754) NUCLEATED RED BLOOD CELLS (BEAKER) 0 /100 WBC 0-0 (test code = 413) POCT-GLUCOSE [id number] 21:22:08 Test Item Value Reference Range Interpretation Comments POC-GLUCOSE METER 73 mg/dL 70-110 : TESTED A T [facility] 6720 (BEAKER) (test code = [place], 1538) [address]: [employer] Associate/Techni kelle ID = [id number] for Rodríguez Rojas POCT-GLUCOSE [id number] 19:10:01 Test Item Value Reference Range Interpretation Comments POC-GLUCOSE METER 83 mg/dL 70-110 : TESTED A T [facility] 6720 (BEAKER) (test code = YUDY Vaca [facility], 1538) [address]: [employer] Associate/Techni kelle ID = [id number] for HATTIE SALAZAR BASIC METABOLIC [id number] 14:08:36 Test Item Value Reference Range Interpretation Comments SODIUM (BEAKER) 137 meq/L 136-145 (test code = 381) POTASSIUM (BEAKER) 3.8 meq/L 3.5-5.1 (test code = 379) CHLORIDE (BEAKER) 106 meq/L 98-107 (test code = 382) CO2 (BEAKER) (test 21 meq/L 22-29 L code = 355) BLOOD UREA NITROGEN 30 mg/dL 7-21 H (BEAKER) (test code = 354) CREATININE (BEAKER) 4.26 mg/dL 0.57-1.25 H (test code = 358) GLUCOSE RANDOM 80 mg/dL 70-105 (BEAKER) (test code = 652) CALCIUM (BEAKER) 8.3 mg/dL 8.4-10.2 L (test code = 697) EGFR (BEAKER) (test 11 mL/min/1.73 ESTIMA LEVI GFR IS code = 1092) sq m NOT ACCURATE CREATININE CLEARANCE IN PREDICTING GLOMERULAR FILTRATION RATE . ESTIMATED GFR I S NOT APPLICABLE FOR DIALYSIS PATIEN TS. [employer] Associate ID - DBPOCT-GLUCOSE [id number] 13:42:11 Test Item Value Reference Range Interpretation Comments POC-GLUCOSE METER 72 mg/dL 70-110 : TESTED A T [facility] 6720 (BEAKER) (test code = YUDY Nola [facility], 1538) 328[address]: [employer] Program Associate/Techni kelle ID = [id number] for Sun(contract )[facility] Surgically obtained culture + gram [id number] 11:46:53 Test Item Value Reference Range Interpretation Comments Result (test code = 6463-4) No growth Gram Stain Result (test No organisms seen code = 1123) [facility] [id number] 11:46:53 Test Item Value Reference Range Interpretation Comments Result (test code = 6463-4) No growth Gram Stain Result (test No organisms seen code = 1123) [facility] + gram [id number] 11:46:53 Test Item Value Reference Range Interpretation Comments Result (test code = 6463-4) No growth Gram Stain Result (test No organisms seen code = 1123) [facility] [id number] 11:46:53 Test Item Value Reference Range Interpretation Comments Result (test code = 6463-4) No growth Gram Stain Result (test No organisms seen code = 1123) [facility] + gram [id number] 11:46:53 Test Item Value Reference Range Interpretation Comments Result (test code = 6463-4) No growth Gram Stain Result (test No organisms seen code = 1123) [facility] + gram [id number] 11:46:53 Test Item Value Reference Range Interpretation Comments Result (test code = 6463-4) No growth Gram Stain Result (test No organisms seen code = 1123) [facility] + gram [id number] 11:46:53 Test Item Value Reference Range Interpretation Comments Result (test code = 6463-4) No growth Gram Stain Result (test No organisms seen code = 1123) [facility] + gram [id number] 11:46:53 Test Item Value Reference Range Interpretation Comments Result (test code = 6463-4) No growth Gram Stain Result (test No organisms seen code = 1123) [facility] + gram [id number] 11:46:53 Test Item Value Reference Range Interpretation Comments Result (test code = 6463-4) No growth Gram Stain Result (test No organisms seen code = 1123) [facility] + gram [id number] 11:46:53 Test Item Value Reference Range Interpretation Comments Result (test code = 6463-4) No growth Gram Stain Result (test No organisms seen code = 1123) [facility] + GRAM [id number] 11:46:53 Test Item Value Reference Range Interpretation Comments CULTURE (BEAKER) (test code No growth = 1095) GRAM STAIN RESULT (BEAKER) 1+ WBCs (test code = 1123) GRAM STAIN RESULT (BEAKER) No organisms seen (test code = 24193) RAD, CHEST, 1 VIEW, NON [id number] 06:05:00Reason for exam:->post-opShould this be performed at the bedside?->Yes [facility] 1955 Sex: FFINAL REPORT RAD, CHEST, 1 VIEW, NON DEPT INDICATION: post-op NAZ RISON: Prior day's exam FINDINGS: Portable frontal view of the chest. IMPRESSION: Support Lines: The pulmonary arterial catheter has been removed. Otherwise, stable. Lungs and pleura: Unchanged bilateral perihilar hazy lung opacities compatible with edema. No pneumothorax. Heart and mediastinum: Stable contours. Additional findings: None. Signed: Andrew Cary Verified Date/Time: 06/21/2021 06:05:24 BASIC METABOLIC [id number] 03:54:19 Test Item Value Reference Range Interpretation Comments SODIUM (BEAKER) 137 meq/L 136-145 (test code = 381) POTASSIUM (BEAKER) 3.9 meq/L 3.5-5.1 (test code = 379) CHLORIDE (BEAKER) 106 meq/L 98-107 (test code = 382) CO2 (BEAKER) (test 20 meq/L 22-29 L code = 355) BLOOD UREA NITROGEN 28 mg/dL 7-21 H (BEAKER) (test code = 354) CREATININE (BEAKER) 3.97 mg/dL 0.57-1.25 H (test code = 358) GLUCOSE RANDOM 85 mg/dL 70-105 (BEAKER) (test code = 652) CALCIUM (BEAKER) 8.3 mg/dL 8.4-10.2 L (test code = 697) EGFR (BEAKER) (test 11 mL/min/1.73 ESTIMA LEVI GFR IS code = 1092) sq m NOT ACCURATE CREATININE CLEARANCE IN PREDICTING GLOMERULAR FILTRATION RATE . ESTIMATED GFR I S NOT APPLICABLE FOR DIALYSIS PATIEN TS. [employer] Associate ID - [id number] 03:49:06 Test Item Value Reference Range Interpretation Comments PHOSPHORUS (BEAKER) (test code = 4.5 mg/dL 2.3-4.7 604) [employer] Associate ID - [id number] 03:49:05 Test Item Value Reference Range Interpretation Comments MAGNESIUM (BEAKER) (test code = 2.4 mg/dL 1.6-2.6 627) [employer] Associate ID - [id number] (HEMOGRAM ONLY)2021-06-21 03:45:10 Test Item Value Reference Range Interpretation Comments WHITE BLOOD CELL COUNT (BEAKER) 3.9 K/ L 3.5-10.5 (test code = 775) RED BLOOD CELL COUNT (BEAKER) 2.72 M/ L 3.93-5.22 L (test code = 761) HEMOGLOBIN (BEAKER) (test code = 7.9 GM/DL 11.2-15.7 L 410) HEMATOCRIT (BEAKER) (test code = 25.7 % 34.1-44.9 L 411) MEAN CORPUSCULAR VOLUME (BEAKER) 94.5 fL 79.4-94.8 (test code = 753) MEAN CORPUSCULAR HEMOGLOBIN 29.0 pg 25.6-32.2 (BEAKER) (test code = 751) MEAN CORPUSCULAR HEMOGLOBIN CONC 30.7 GM/DL 32.2-35.5 L (BEAKER) (test code = 752) RED CELL DISTRIBUTION WIDTH 20.1 % 11.7-14.4 H (BEAKER) (test code = 412) PLATELET COUNT (BEAKER) (test code 52 K/CU MM 150-450 L = 756) MEAN PLATELET VOLUME (BEAKER) 10.1 fL 9.4-12.3 (test code = 754) NUCLEATED RED BLOOD CELLS (BEAKER) 0 /100 WBC 0-0 (test code = 413) [id number] 03:45:00 Test Item Value Reference Range Interpretation Comments PARTIAL THROMBOPLASTIN TIME 35.5 seconds 22.5-36.0 (BEAKER) (test code = 760) PROTHROMBIN [id number] 03:44:22 Test Item Value Reference Range Interpretation Comments PROTIME (BEAKER) 14.1 seconds 11.9-14.2 (test code = 759) INR (BEAKER) (test 1.11 See_Comment [Automat ed message] code = 370) The system [employer] management generated this result transmitted ref erence range: <=5.90. The reference range was not used to int erpret this result as normal/abnormal . RECOMMENDED COUMADIN/WARFARIN INR THERAPY RANGESSTANDARD DOSE: 2.0 - 3.0 Includes: PROPHYLAXIS forvenous thrombosis, systemic embolization; TREATMENT for venous thrombosis and/or pulmonary embolus.HIGH RISK: Target INR is 2.5-3.5 for patients with mechanical heart valves.BASIC METABOLIC [id number] 18:24:15 Test Item Value Reference Range Interpretation Comments SODIUM (BEAKER) 139 meq/L 136-145 (test code = 381) POTASSIUM (BEAKER) 4.1 meq/L 3.5-5.1 (test code = 379) CHLORIDE (BEAKER) 105 meq/L 98-107 (test code = 382) CO2 (BEAKER) (test 21 meq/L 22-29 L code = 355) BLOOD UREA NITROGEN 25 mg/dL 7-21 H (AKER) (test code = 354) CREATININE (AKER) 3.60 mg/dL 0.57-1.25 H (test code = 358) GLUCOSE RANDOM 134 mg/dL 70-105 H (AKER) (test code = 652) CALCIUM (BEAKER) 8.4 mg/dL 8.4-10.2 (test code = 697) EGFR ([place]) (test 13 mL/min/1.73 ESTIMA LEVI GFR IS code = 1092) sq m NOT ACCURATE CREATININE CLEARANCE IN PREDICTING GLOMERULAR FILTRATION RATE . ESTIMATED GFR I S NOT APPLICABLE FOR DIALYSIS PATIEN TS. [employer] Associate ID - PIAYA LPOCT-GLUCOSE [id number] 13:44:48 Test Item Value Reference Range Interpretation Comments POC-GLUCOSE METER 165 mg/dL 70-110 H : TESTED A T [facility] 6720 ([facility]) (test code = [place], 1538) [address]: [employer] Services Program Associate/Techni kelle ID = [id number] for KOTA ARIAS SARS-CoV2/RT-PCR (Asymptomatic ONLY)2021-06-20 11:58:08 Test Item Value Reference Range Interpretation Comments SARS-COV2/RT-PCR Negative Not Detected, (test code = Negative, See 42509-6) external report for linked test SARS-COV-2 [facility] PERFORMING LAB (test code = 67648-8) BRANDI (test code = Negative result for this BRANDI) test determines that SARS-CoV-2 RNA was not present in the specimen above the Limit of Detection (LOD). However, Negative results do not preclude SARS-CoV-2 infection and should not be used as the sole basis for treatment or patient management decisions. Negative results must be combined with clinical observations, patient history, and epidemiological information. A false negative result may occur if a specimen is improperly collected, transported or handled. A false negative result should be considered if patient's recent exposures or clinical presentation indicate that COVID-19 (SARS-CoV-2) is likely and diagnostic tests for other causes of illness are negative. Re-testing should be considered in cases of suspected false negatives. The limit of detection for this assay is 800 copies/mL. This SARS CoV-2 test is a real-time RT-PCR test intended for the qualitative detection of nucleic acid from SARS-CoV-2 in a nasopharyngeal swab specimen collected from individuals suspected of COVID-19 by their healthcare provider. This test has not been Food and Drug Administration (FDA) cleared or approved. This is a modified version of an approved Emergency Use Authorization (EUA) and is in the process of review by the FDA. Once authorized by the FDA, the issued EUA will be effective until the declaration that circumstances exist justifying the authorization of the emergency use of in vitro diagnostic tests for detection and/or diagnosis of COVID-19 is terminated under Section 564(b)(2) of the Act or the EUA is revoked under Section 564(g) of the Act. Fact Sheet for Healthcare Providers:https://www.[employer]/sites/default/f radha/product/documents/F act_Sheet_HC_Providers_L fzk_OJGT-VdV-5.pdf Fact Sheet for Healthcare Patients:https://www.[employer] (acquired by [employer] in 2014)/sites/default/fi les/product/documents/Fa ct_Sheet_Patients_Lyra_S ARS-CoV-2.pdf Performing Laboratory:[facility], [place] [id number] [place], [place] [address]ARS-CoV2/RT-PCR (Asymptomatic ONLY)2021-06-20 11:58:08 Test Item Value Reference Range Interpretation Comments SARS-COV2/RT-PCR Negative Not Detected, (test code = Negative, See 69385-1) external report for linked test SARS-COV-2 [facility] PERFORMING LAB (test code = 60633-9) BRANDI (test code = Negative result for this BRANDI) test determines that SARS-CoV-2 RNA was not present in the specimen above the Limit of Detection (LOD). However, Negative results do not preclude SARS-CoV-2 infection and should not be used as the sole basis for treatment or patient management decisions. Negative results must be combined with clinical observations, patient history, and epidemiological information. A false negative result may occur if a specimen is improperly collected, transported or handled. A false negative result should be considered if patient's recent exposures or clinical presentation indicate that COVID-19 (SARS-CoV-2) is likely and diagnostic tests for other causes of illness are negative. Re-testing should be considered in cases of suspected false negatives. The limit of detection for this assay is 800 copies/mL. This SARS CoV-2 test is a real-time RT-PCR test intended for the qualitative detection of nucleic acid from SARS-CoV-2 in a nasopharyngeal swab specimen collected from individuals suspected of COVID-19 by their healthcare provider. This test has not been Food and Drug Administration (FDA) cleared or approved. This is a modified version of an approved Emergency Use Authorization (EUA) and is in the process of review by the FDA. Once authorized by the FDA, the issued EUA will be effective until the declaration that circumstances exist justifying the authorization of the emergency use of in vitro diagnostic tests for detection and/or diagnosis of COVID-19 is terminated under Section 564(b)(2) of the Act or the EUA is revoked under Section 564(g) of the Act. Fact Sheet for Healthcare Providers:https://www.[employer]/sites/default/f radha/product/documents/F act_Sheet_HC_Providers_L dga_ASRZ-UpK-3.pdf Fact Sheet for Healthcare Patients:https://www.[employer] (acquired by [employer] in 2014)/sites/default/fi les/product/documents/Fa ct_Sheet_Patients_Lyra_S ARS-CoV-2.pdf Performing Laboratory:[place] [address], [place] [address] [place], [place] [address]ARS-COV2/RT-PCR ([facility])2021-06-20 11:58:08 Test Item Value Reference Range Interpretation Comments SARS-COV2/RT-PCR (test Negative Not Detected, Negative, code = 5996826) See external report for linked test SARS-COV-[address] [facility] (test code = 9352166) Negative result for this test determines that SARS-CoV-2 RNA was not present in the specimen above the Limit of Detection (LOD). However, Negative results do not preclude SARS-CoV-2 infection and should not be used as the sole basis for treatment or patient management decisions. Negative results mustbe combined with clinical observations, patient history, and epidemiological information. A false negative result may occur if a specimen is improperly collected, transported or handled. A false negative result should be considered if patient's recent exposures or clinical presentation indicate that COVID-19 (SARS-CoV-2) is likely and diagnostic tests for other causes of illness are negative. Re-testing should be considered in cases of suspected false negatives.The limit of detection for this assay is 800 copies/mL.This SARS CoV-2 test is a real-time RT-PCR test intended for the qualitative detection of nucleic acid from SARS-CoV-2 in a nasopharyngeal swab specimen collected from individuals susp ected of COVID-19 by their healthcare provider.This test has not been Food and Drug Administration (FDA) cleared or approved. This is a modified version of an approved Emergency Use Authorization (EUA) and is in the process of review by the FDA. Once authorized by the FDA, the issued EUA will be effective until the declaration that circumstances exist justifying the authorization of the emergency use of in vitro diagnostic tests for detection and/or diagnosis of COVID-19 is terminated under Section 564(b)(2) of the Act or the EUA is revoked under Section 564(g) of the Act.Fact Sheet for Healthcare Providers:https://www.[employer]/sites/default/files/product/documents/Fact_Shee o_NK_Uzpjvtfbv_Atny_BZOV-WpY-3.pdfFact Sheet for Healthcare Patients:https://www.[employer]/sites/default/files/product/ documents/Vmdm_Bypqs_Scqfthsk_Zpxs_FWMQ-XdO-5.pdfPerforming Laboratory:[facility], [place] [address]BMDU-FZZLFFI METER 2021-06-20 06:30:37 Test Item Value Reference Range Interpretation Comments POC-GLUCOSE METER 145 mg/dL 70-110 H : TESTED A T [facility] 6720 (BEAKER) (test code [facility], = 1538) [address]: University Services Program Associate/Techni kelle ID = [id number] for Tash wiseman (contract), [place] RAD, CHEST, 1 VIEW, NON [id number] 06:25:00Reason for exam:->post-opShould this be performed at the bedside?->Yes [facility] 1955 Sex: FFINAL REPORT RAD, CHEST, 1 VIEW, NON DEPT INDICATION: post-op NAZ RISON: Prior day's exam FINDINGS: Portable frontal view of the chest. IMPRESSION: Support Lines: Interval extubation. A drainage catheter overlies the upper abdomen and lower hemidiaphragm in the center. [place]-Blayne tip overlies the pulmonary outflow tract. Pacer device and sternotomy wires are unchanged. Lungs and pleura: Bilateral effusions and adjacent compressive atelectasis are unchanged No significant pneumothorax. Heart and mediastinum: Normal contours. Additional findings: None. Signed: Bayron Cosme MDReport Verified Date/Time: 06/20/2021 06:25:51 [id number] 02:12:20 Test Item Value Reference Range Interpretation Comments PARTIAL THROMBOPLASTIN TIME 35.8 seconds 22.5-36.0 (BEAKER) (test code = 760) PROTHROMBIN TIME/[id number] 02:11:37 Test Item Value Reference Range Interpretation Comments PROTIME (BEAKER) 15.4 seconds 11.9-14.2 H (test code = 759) INR (BEAKER) (test 1.24 See_Comment [Automat ed message] code = 370) The system [employer] management generated this result transmitted ref erence range: <=5.90. The reference range was not used to int erpret this result as normal/abnormal . RECOMMENDED COUMADIN/WARFARIN INR THERAPY RANGESSTANDARD DOSE: 2.0 - 3.0 Includes: PROPHYLAXIS forvenous thrombosis, systemic embolization; TREATMENT for venous thrombosis and/or pulmonary embolus.HIGH RISK: Target INR is 2.5-3.5 for patients with mechanical heart valves.BASIC METABOLIC [id number] 02:08:36 Test Item Value Reference Range Interpretation Comments SODIUM (BEAKER) 137 meq/L 136-145 (test code = 381) POTASSIUM (BEAKER) 4.5 meq/L 3.5-5.1 (test code = 379) CHLORIDE (BEAKER) 104 meq/L 98-107 (test code = 382) CO2 (BEAKER) (test 20 meq/L 22-29 L code = 355) BLOOD UREA NITROGEN 22 mg/dL 7-21 H (BEAKER) (test code = 354) CREATININE (BEAKER) 3.49 mg/dL 0.57-1.25 H (test code = 358) GLUCOSE RANDOM 203 mg/dL 70-105 H (BEAKER) (test code = 652) CALCIUM (BEAKER) 8.5 mg/dL 8.4-10.2 (test code = 697) EGFR (BEAKER) (test 13 mL/min/1.73 ESTIMA LEVI GFR IS code = 1092) sq m NOT ACCURATE CREATININE CLEARANCE IN PREDICTING GLOMERULAR FILTRATION RATE . ESTIMATED GFR I S NOT APPLICABLE FOR DIALYSIS PATIEN TS. [employer] Associate ID - [id number] 01:57:56 Test Item Value Reference Range Interpretation Comments PHOSPHORUS (BEAKER) (test code = 4.1 mg/dL 2.3-4.7 604) [employer] Program Associate ID - [id number] 01:57:55 Test Item Value Reference Range Interpretation Comments MAGNESIUM (BEAKER) (test code = 2.2 mg/dL 1.6-2.6 627) [employer] Program Associate ID - DBCBC (HEMOGRAM ONLY)2021-06-20 01:36:09 Test Item Value Reference Range Interpretation Comments WHITE BLOOD CELL COUNT (BEAKER) 7.9 K/ L 3.5-10.5 (test code = 775) RED BLOOD CELL COUNT (BEAKER) 2.94 M/ L 3.93-5.22 L (test code = 761) HEMOGLOBIN (BEAKER) (test code = 8.7 GM/DL 11.2-15.7 L 410) HEMATOCRIT (BEAKER) (test code = 27.0 % 34.1-44.9 L 411) MEAN CORPUSCULAR VOLUME (BEAKER) 91.8 fL 79.4-94.8 (test code = 753) MEAN CORPUSCULAR HEMOGLOBIN 29.6 pg 25.6-32.2 (BEAKER) (test code = 751) MEAN CORPUSCULAR HEMOGLOBIN CONC 32.2 GM/DL 32.2-35.5 (BEAKER) (test code = 752) RED CELL DISTRIBUTION WIDTH 20.0 % 11.7-14.4 H (BEAKER) (test code = 412) PLATELET COUNT (BEAKER) (test code 73 K/CU MM 150-450 L = 756) MEAN PLATELET VOLUME (BEAKER) 10.3 fL 9.4-12.3 (test code = 754) NUCLEATED RED BLOOD CELLS (BEAKER) 0 /100 WBC 0-0 (test code = 413) Blood gas, [id number] 01:27:29 Test Item Value Reference Range Interpretation Comments pH, Arterial (test code 7.41 7.35-7.45 = 2744-1) pCO2, Arterial (test 36 See_Comment [Autom ated code = 2018-11) message] The system which generated this result transmitted reference range : 35 - 45 mm Hg. The reference range was not used to interpret this result as normal/abnormal . pO2, Arterial (test 83 See_Comment [Automa levi code = 2703-7) message] The system which generated this result transmitted reference range : 80 - 90 mm Hg. The reference range was not used to interpret this result as normal/abnormal . O2 Sat, Arterial (test 96.9 % 96.0-97.0 code = 2708-6) HCO3, Arterial (test 22 mmol/L 21-29 code = 1960-4) Base Excess, Arterial -2.4 mmol/L -2.0-3.0 L (test code = 1925-7) Patient Temperature 35.5 (test code = 8310-5) FIO2 (test code = 1819) 28 Lab Interpretation Abnormal (test code = 37385-1) [facility] [id number] 01:27:29 Test Item Value Reference Range Interpretation Comments pH, Arterial (test code 7.41 7.35-7.45 = 2744-1) pCO2, Arterial (test 36 See_Comment [Autom ated code = 2018-11) message] The system which generated this result transmitted reference range : 35 - 45 mm Hg. The reference range was not used to interpret this result as normal/abnormal . pO2, Arterial (test 83 See_Comment [Automa levi code = 2703-7) message] The system which generated this result transmitted reference range : 80 - 90 mm Hg. The reference range was not used to interpret this result as normal/abnormal . O2 Sat, Arterial (test 96.9 % 96.0-97.0 code = 2708-6) HCO3, Arterial (test 22 mmol/L 21-29 code = 1960-4) Base Excess, Arterial -2.4 mmol/L -2.0-3.0 L (test code = 1925-7) Patient Temperature 35.5 (test code = 8310-5) FIO2 (test code = 1819) 28 Lab Interpretation Abnormal (test code = 91875-2) [facility] [id number] 01:27:29 Test Item Value Reference Range Interpretation Comments pH, Arterial (test code 7.41 7.35-7.45 = 2744-1) pCO2, Arterial (test 36 See_Comment [Autom ated code = 2019-8) message] The system which generated this result transmitted reference range : 35 - 45 mm Hg. The reference range was not used to interpret this result as normal/abnormal . pO2, Arterial (test 83 See_Comment [Automa levi code = 2703-7) message] The system which generated this result transmitted reference range : 80 - 90 mm Hg. The reference range was not used to interpret this result as normal/abnormal . O2 Sat, Arterial (test 96.9 % 96.0-97.0 code = 2708-6) HCO3, Arterial (test 22 mmol/L 21-29 code = 1960-4) Base Excess, Arterial -2.4 mmol/L -2.0-3.0 L (test code = 1925-7) Patient Temperature 35.5 (test code = 8310-5) FIO2 (test code = 1819) 28 Lab Interpretation Abnormal (test code = 93453-6) [facility] [id number] 01:27:29 Test Item Value Reference Range Interpretation Comments pH, Arterial (test code 7.41 7.35-7.45 = 2744-1) pCO2, Arterial (test 36 See_Comment [Autom ated code = 2019-8) message] The system which generated this result transmitted reference range : 35 - 45 mm Hg. The reference range was not used to interpret this result as normal/abnormal . pO2, Arterial (test 83 See_Comment [Automa levi code = 2703-7) message] The system which generated this result transmitted reference range : 80 - 90 mm Hg. The reference range was not used to interpret this result as normal/abnormal . O2 Sat, Arterial (test 96.9 % 96.0-97.0 code = 2708-6) HCO3, Arterial (test 22 mmol/L 21-29 code = 1960-4) Base Excess, Arterial -2.4 mmol/L -2.0-3.0 L (test code = 1925-7) Patient Temperature 35.5 (test code = 8310-5) FIO2 (test code = 1819) 28 Lab Interpretation Abnormal (test code = 18543-7) [facility], [id number] 01:27:29 Test Item Value Reference Range Interpretation Comments pH, Arterial (test code 7.41 7.35-7.45 = 2744-1) pCO2, Arterial (test 36 See_Comment [Autom ated code = 2018-) message] The system which generated this result transmitted reference range : 35 - 45 mm Hg. The reference range was not used to interpret this result as normal/abnormal . pO2, Arterial (test 83 See_Comment [Automa levi code = 2703-7) message] The system which generated this result transmitted reference range : 80 - 90 mm Hg. The reference range was not used to interpret this result as normal/abnormal . O2 Sat, Arterial (test 96.9 % 96.0-97.0 code = 2708-6) HCO3, Arterial (test 22 mmol/L 21-29 code = 1960-4) Base Excess, Arterial -2.4 mmol/L -2.0-3.0 L (test code = 1925-7) Patient Temperature 35.5 (test code = 8310-5) FIO2 (test code = 1819) 28 Lab Interpretation Abnormal (test code = 14047-4) [facility], [id number] 01:27:29 Test Item Value Reference Range Interpretation Comments pH, Arterial (test code 7.41 7.35-7.45 = 2744-1) pCO2, Arterial (test 36 See_Comment [Autom ated code = 2018-11) message] The system which generated this result transmitted reference range : 35 - 45 mm Hg. The reference range was not used to interpret this result as normal/abnormal . pO2, Arterial (test 83 See_Comment [Automa levi code = 2703-7) message] The system which generated this result transmitted reference range : 80 - 90 mm Hg. The reference range was not used to interpret this result as normal/abnormal . O2 Sat, Arterial (test 96.9 % 96.0-97.0 code = 2708-6) HCO3, Arterial (test 22 mmol/L 21-29 code = 1960-4) Base Excess, Arterial -2.4 mmol/L -2.0-3.0 L (test code = 1925-7) Patient Temperature 35.5 (test code = 8310-5) FIO2 (test code = 1819) 28 Lab Interpretation Abnormal (test code = 51538-3) [facility], [id number] 01:27:29 Test Item Value Reference Range Interpretation Comments pH, Arterial (test code 7.41 7.35-7.45 = 2744-1) pCO2, Arterial (test 36 See_Comment [Autom ated code = 2018-11) message] The system which generated this result transmitted reference range : 35 - 45 mm Hg. The reference range was not used to interpret this result as normal/abnormal . pO2, Arterial (test 83 See_Comment [Automa levi code = 2703-7) message] The system which generated this result transmitted reference range : 80 - 90 mm Hg. The reference range was not used to interpret this result as normal/abnormal . O2 Sat, Arterial (test 96.9 % 96.0-97.0 code = 2708-6) HCO3, Arterial (test 22 mmol/L -29 code = 1960-4) Base Excess, Arterial -2.4 mmol/L -2.0-3.0 L (test code = 1925-7) Patient Temperature 35.5 (test code = 8310-5) FIO2 (test code = 1819) 28 Lab Interpretation Abnormal (test code = 10610-4) [facility], [id number] 01:27:29 Test Item Value Reference Range Interpretation Comments pH, Arterial (test code 7.41 7.35-7.45 = 2744-1) pCO2, Arterial (test 36 See_Comment [Autom ated code = 2019-) message] The system which generated this result transmitted reference range : 35 - 45 mm Hg. The reference range was not used to interpret this result as normal/abnormal . pO2, Arterial (test 83 See_Comment [Automa levi code = 2703-7) message] The system which generated this result transmitted reference range : 80 - 90 mm Hg. The reference range was not used to interpret this result as normal/abnormal . O2 Sat, Arterial (test 96.9 % 96.0-97.0 code = 2708-6) HCO3, Arterial (test 22 mmol/L 21-29 code = 1960-4) Base Excess, Arterial -2.4 mmol/L -2.0-3.0 L (test code = 1925-7) Patient Temperature 35.5 (test code = 8310-5) FIO2 (test code = 1819) 28 Lab Interpretation Abnormal (test code = 93493-6) [facility] gas, [id number] 01:27:29 Test Item Value Reference Range Interpretation Comments pH, Arterial (test code 7.41 7.35-7.45 = 2744-1) pCO2, Arterial (test 36 See_Comment [Autom ated code = 2018-11) message] The system which generated this result transmitted reference range : 35 - 45 mm Hg. The reference range was not used to interpret this result as normal/abnormal . pO2, Arterial (test 83 See_Comment [Automa levi code = 2703-7) message] The system which generated this result transmitted reference range : 80 - 90 mm Hg. The reference range was not used to interpret this result as normal/abnormal . O2 Sat, Arterial (test 96.9 % 96.0-97.0 code = 2708-6) HCO3, Arterial (test 22 mmol/L 21-29 code = 1960-4) Base Excess, Arterial -2.4 mmol/L -2.0-3.0 L (test code = 1925-7) Patient Temperature 35.5 (test code = 8310-5) FIO2 (test code = 1819) 28 Lab Interpretation Abnormal (test code = 76626-6) [facility], [id number] 01:27:29 Test Item Value Reference Range Interpretation Comments pH, Arterial (test code 7.41 7.35-7.45 = 2744-1) pCO2, Arterial (test 36 See_Comment [Autom ated code = 2019-8) message] The system which generated this result transmitted reference range : 35 - 45 mm Hg. The reference range was not used to interpret this result as normal/abnormal . pO2, Arterial (test 83 See_Comment [Automa levi code = 2703-7) message] The system which generated this result transmitted reference range : 80 - 90 mm Hg. The reference range was not used to interpret this result as normal/abnormal . O2 Sat, Arterial (test 96.9 % 96.0-97.0 code = 2708-6) HCO3, Arterial (test 22 mmol/L code = 1960-4) Base Excess, Arterial -2.4 mmol/L -2.0-3.0 L (test code = 1925-7) Patient Temperature 35.5 (test code = 8310-5) FIO2 (test code = 1819) 28 Lab Interpretation Abnormal (test code = 10023-5) [facility], [id number] 01:27:29 Test Item Value Reference Range Interpretation Comments PH ARTERIAL (BEAKER) (test code = 7.41 7.35-7.45 383) PCO2 ARTERIAL (BEAKER) (test code 36 mm Hg 35-45 = 384) PO2 ARTERIAL (BEAKER) (test code 83 mm Hg 80-90 = 385) O2 SATURATION ARTERIAL (BEAKER) 96.9 % 96.0-97.0 (test code = 386) HCO3 ARTERIAL (BEAKER) (test code 22 mmol/L -29 = 388) BASE EXCESS ARTERIAL (BEAKER) -2.4 mmol/L -2.0-3.0 L (test code = 387) PATIENT TEMPERATURE (BEAKER) 35.5 (test code = 1818) FIO2 (BEAKER) (test code = 1819) 28.0 Calcium, [id number] 01:26:07 Test Item Value Reference Range Interpretation Comments Calcium, Ion (test code = 1993-06) 1.17 mmol/L 1.12-1.27 pH, Blood (test code = 53473-5) 7.39 [facility], [id number] 01:26:07 Test Item Value Reference Range Interpretation Comments Calcium, Ion (test code = 1993-06) 1.17 mmol/L 1.12-1.27 pH, Blood (test code = 70676-5) 7.39 [facility], [id number] 01:26:07 Test Item Value Reference Range Interpretation Comments Calcium, Ion (test code = 1993-06) 1.17 mmol/L 1.12-1.27 pH, Blood (test code = 02097-5) 7.39 [facility], [id number] 01:26:07 Test Item Value Reference Range Interpretation Comments Calcium, Ion (test code = 1993-06) 1.17 mmol/L 1.12-1.27 pH, Blood (test code = 55768-8) 7.39 [facility], [id number] 01:26:07 Test Item Value Reference Range Interpretation Comments Calcium, Ion (test code = 1993-06) 1.17 mmol/L 1.12-1.27 pH, Blood (test code = 80087-9) 7.39 [facility], [id number] 01:26:07 Test Item Value Reference Range Interpretation Comments Calcium, Ion (test code = 1993-06) 1.17 mmol/L 1.12-1.27 pH, Blood (test code = 31966-6) 7.39 [facility], [id number] 01:26:07 Test Item Value Reference Range Interpretation Comments Calcium, Ion (test code = 1993-06) 1.17 mmol/L 1.12-1.27 pH, Blood (test code = 99154-2) 7.39 [facility], [id number] 01:26:07 Test Item Value Reference Range Interpretation Comments Calcium, Ion (test code = 1993-06) 1.17 mmol/L 1.12-1.27 pH, Blood (test code = 70338-8) 7.39 [facility], [id number] 01:26:07 Test Item Value Reference Range Interpretation Comments Calcium, Ion (test code = 1993-06) 1.17 mmol/L 1.12-1.27 pH, Blood (test code = 67299-4) 7.39 [facility], [id number] 01:26:07 Test Item Value Reference Range Interpretation Comments Calcium, Ion (test code = 1993-06) 1.17 mmol/L 1.12-1.27 pH, Blood (test code = 12804-1) 7.39 [facility] Center[facility], [id number] 01:26:07 Test Item Value Reference Range Interpretation Comments CALCIUM IONIZED (BEAKER) (test 1.17 mmol/L 1.12-1.27 code = 698) PH, BLOOD (BEAKER) (test code = 7.39 1810) Prepare [id number] 23:55:00 Test Item Value Reference Range Interpretation Comments Unit ABO (test code = 5635780) A Pos UNIT NUMBER (test code = [id number] 934-0) Status (test code = 3960333) TX_TIMEINCHART Blood Bank Product (test code PLATELETS = 2263) PRODUCT CODE (test code = W7748O62 933-2) [facility] Center[facility] [id number] 23:55:00 Test Item Value Reference Range Interpretation Comments Unit ABO (test code = 3963509) A Pos UNIT NUMBER (test code = [id number] 934-0) Status (test code = 7084571) TX_TIMEINCHART Blood Bank Product (test code PLATELETS = 2263) PRODUCT CODE (test code = K9262B22 933-2) [facility] [id number] 23:55:00 Test Item Value Reference Range Interpretation Comments Unit ABO (test code = 5300696) A Pos UNIT NUMBER (test code = [id number] 934-0) Status (test code = 8360884) TX_TIMEINCHART Blood Bank Product (test code PLATELETS = 2263) PRODUCT CODE (test code = N2073G59 933-2) [facility] [id number] 23:55:00 Test Item Value Reference Range Interpretation Comments Unit ABO (test code = 7768217) A Pos UNIT NUMBER (test code = [id number] 934-0) Status (test code = 4882364) TX_TIMEINCHART Blood Bank Product (test code PLATELETS = 2263) PRODUCT CODE (test code = D2230J34 933-2) [facility] [id number] 23:55:00 Test Item Value Reference Range Interpretation Comments Unit ABO (test code = 4671546) A Pos UNIT NUMBER (test code = [id number] 934-0) Status (test code = 2422563) TX_TIMEINCHART Blood Bank Product (test code PLATELETS = 2263) PRODUCT CODE (test code = O3981N17 933-2) [facility] [id number] 23:55:00 Test Item Value Reference Range Interpretation Comments Unit ABO (test code = 0788620) A Pos UNIT NUMBER (test code = [id number] 934-0) Status (test code = 1549667) TX_TIMEINCHART Blood Bank Product (test code PLATELETS = 2263) PRODUCT CODE (test code = K1048B20 933-2) [facility] [id number] 23:55:00 Test Item Value Reference Range Interpretation Comments Unit ABO (test code = 4272305) A Pos UNIT NUMBER (test code = [id number] 934-0) Status (test code = 2031783) TX_TIMEINCHART Blood Bank Product (test code PLATELETS = 2263) PRODUCT CODE (test code = G2269T82 933-2) [facility] [id number] 23:55:00 Test Item Value Reference Range Interpretation Comments Unit ABO (test code = 8972245) A Pos UNIT NUMBER (test code = [id number] 934-0) Status (test code = 5951622) TX_TIMEINCHART Blood Bank Product (test code PLATELETS = 2263) PRODUCT CODE (test code = H6742N32 933-2) [facility] [id number] 23:55:00 Test Item Value Reference Range Interpretation Comments Unit ABO (test code = 7345051) A Pos UNIT NUMBER (test code = [id number] 934-0) Status (test code = 2669464) TX_TIMEINCHART Blood Bank Product (test code PLATELETS = 2263) PRODUCT CODE (test code = P3422F22 933-2) [facility] [id number] 23:55:00 Test Item Value Reference Range Interpretation Comments Unit ABO (test code = 5682358) A Pos UNIT NUMBER (test code = [id number] 934-0) Status (test code = 4558548) TX_TIMEINCHART Blood Bank Product (test code PLATELETS = 2263) PRODUCT CODE (test code = O5745M71 933-2) [facility] [id number] 23:54:00 Test Item Value Reference Range Interpretation Comments CROSSMATCH (test code = COMPATIBLE 2264) Unit ABO (test code = O Pos 7016025) UNIT NUMBER (test code = [id number] 934-0) Status (test code = RETURNED FROM ISSUE 1416312) Blood Bank Product (test RED BLOOD CELLS code = 2263) PRODUCT CODE (test code = Z4089X51 933-2) [facility] [id number] 23:54:00 Test Item Value Reference Range Interpretation Comments CROSSMATCH (test code = COMPATIBLE 2264) Unit ABO (test code = O Pos 2377885) UNIT NUMBER (test code = [id number] 934-0) Status (test code = RETURNED FROM ISSUE 15100613) Blood Bank Product (test RED BLOOD CELLS code = 2263) PRODUCT CODE (test code = L9341E60 933-2) [facility] [id number] 23:54:00 Test Item Value Reference Range Interpretation Comments CROSSMATCH (test code = COMPATIBLE 2264) Unit ABO (test code = O Pos 6595767) UNIT NUMBER (test code = [id number] 934-0) Status (test code = RETURNED FROM ISSUE 15100613) Blood Bank Product (test RED BLOOD CELLS code = 2263) PRODUCT CODE (test code = B3855D71 933-2) [facility] [id number] 23:54:00 Test Item Value Reference Range Interpretation Comments CROSSMATCH (test code = COMPATIBLE 2264) Unit ABO (test code = O Pos 0471825) UNIT NUMBER (test code = [id number] 934-0) Status (test code = RETURNED FROM ISSUE 15100613) Blood Bank Product (test RED BLOOD CELLS code = 2263) PRODUCT CODE (test code = F0751R93 933-2) [facility] [id number] 23:54:00 Test Item Value Reference Range Interpretation Comments CROSSMATCH (test code = COMPATIBLE 2264) Unit ABO (test code = O Pos 3070596) UNIT NUMBER (test code = [id number] 934-0) Status (test code = RETURNED FROM ISSUE 15100613) Blood Bank Product (test RED BLOOD CELLS code = 2263) PRODUCT CODE (test code = L7504M71 933-2) [facility] [id number] 23:54:00 Test Item Value Reference Range Interpretation Comments CROSSMATCH (test code = COMPATIBLE 2264) Unit ABO (test code = O Pos 0033619) UNIT NUMBER (test code = [id number] 934-0) Status (test code = RETURNED FROM ISSUE 15100613) Blood Bank Product (test RED BLOOD CELLS code = 2263) PRODUCT CODE (test code = Y7358Z70 933-2) [facility] [id number] 23:54:00 Test Item Value Reference Range Interpretation Comments CROSSMATCH (test code = COMPATIBLE 2264) Unit ABO (test code = O Pos 4518750) UNIT NUMBER (test code = [id number] 934-0) Status (test code = RETURNED FROM ISSUE 2366412) Blood Bank Product (test RED BLOOD CELLS code = 2263) PRODUCT CODE (test code = K4431X85 933-2) [facility] [id number] 23:54:00 Test Item Value Reference Range Interpretation Comments CROSSMATCH (test code = COMPATIBLE 2264) Unit ABO (test code = O Pos 1323783) UNIT NUMBER (test code = [id number] 934-0) Status (test code = RETURNED FROM ISSUE 15100613) Blood Bank Product (test RED BLOOD CELLS code = 2263) PRODUCT CODE (test code = K8831J53 933-2) [facility] [id number] 23:54:00 Test Item Value Reference Range Interpretation Comments CROSSMATCH (test code = COMPATIBLE 2264) Unit ABO (test code = O Pos 4767706) UNIT NUMBER (test code = [id number] 934-0) Status (test code = RETURNED FROM ISSUE 0790150) Blood Bank Product (test RED BLOOD CELLS code = 2263) PRODUCT CODE (test code = X4204Q21 933-2) [facility] [id number] 23:54:00 Test Item Value Reference Range Interpretation Comments CROSSMATCH (test code = COMPATIBLE 2264) Unit ABO (test code = O Pos 9033389) UNIT NUMBER (test code = [id number] 934-0) Status (test code = RETURNED FROM ISSUE 2735006) Blood Bank Product (test RED BLOOD CELLS code = 2263) PRODUCT CODE (test code = S6020H51 933-2) [facility] Center[facility] [id number] 22:04:29 Test Item Value Reference Range Interpretation Comments SODIUM (BEAKER) 137 meq/L 136-145 (test code = 381) POTASSIUM (BEAKER) 4.4 meq/L 3.5-5.1 (test code = 379) CHLORIDE (BEAKER) 104 meq/L 98-107 (test code = 382) CO2 (BEAKER) (test 20 meq/L 22-29 L code = 355) BLOOD UREA NITROGEN 25 mg/dL 7-21 H (BEAKER) (test code = 354) CREATININE (BEAKER) 4.02 mg/dL 0.57-1.25 H (test code = 358) GLUCOSE RANDOM 217 mg/dL 70-105 H (BEAKER) (test code = 652) CALCIUM (BEAKER) 8.3 mg/dL 8.4-10.2 L (test code = 697) EGFR (BEAKER) (test 11 mL/min/1.73 ESTIMA LEVI GFR IS code = 1092) sq m NOT ACCURATE CREATININE CLEARANCE IN PREDICTING GLOMERULAR FILTRATION RATE . ESTIMATED GFR I S NOT APPLICABLE FOR DIALYSIS PATIEN TS. [employer] ID - [id number] 22:03:41 Test Item Value Reference Range Interpretation Comments PHOSPHORUS (BEAKER) (test code = 4.3 mg/dL 2.3-4.7 604) [employer] ID - [id number] 22:03:40 Test Item Value Reference Range Interpretation Comments MAGNESIUM (BEAKER) (test code = 2.2 mg/dL 1.6-2.6 627) [employer] ID - DBpH, [id number] 21:40:14 Test Item Value Reference Range Interpretation Comments pH, Arterial (test code = 2744-1) 7.37 7.35-7.45 Lab Interpretation (test code = Normal 60030-3) [facility] [id number] 21:40:14 Test Item Value Reference Range Interpretation Comments pH, Arterial (test code = 2744-1) 7.37 7.35-7.45 Lab Interpretation (test code = Normal 63552-9) [facility] [id number] 21:40:14 Test Item Value Reference Range Interpretation Comments pH, Arterial (test code = 2744-1) 7.37 7.35-7.45 Lab Interpretation (test code = Normal 35431-6) [facility] [id number] 21:40:14 Test Item Value Reference Range Interpretation Comments pH, Arterial (test code = 2744-1) 7.37 7.35-7.45 Lab Interpretation (test code = Normal 43814-8) [facility] [id number] 21:40:14 Test Item Value Reference Range Interpretation Comments pH, Arterial (test code = 2744-1) 7.37 7.35-7.45 Lab Interpretation (test code = Normal 33418-3) [facility] [id number] 21:40:14 Test Item Value Reference Range Interpretation Comments pH, Arterial (test code = 2744-1) 7.37 7.35-7.45 Lab Interpretation (test code = Normal 92255-9) [facility] [id number] 21:40:14 Test Item Value Reference Range Interpretation Comments pH, Arterial (test code = 2744-1) 7.37 7.35-7.45 Lab Interpretation (test code = Normal 90571-8) [facility] [id number] 21:40:14 Test Item Value Reference Range Interpretation Comments pH, Arterial (test code = 2744-1) 7.37 7.35-7.45 Lab Interpretation (test code = Normal 83413-0) [facility] [id number] 21:40:14 Test Item Value Reference Range Interpretation Comments pH, Arterial (test code = 2744-1) 7.37 7.35-7.45 Lab Interpretation (test code = Normal 95244-9) [facility] [id number] 21:40:14 Test Item Value Reference Range Interpretation Comments pH, Arterial (test code = 2744-1) 7.37 7.35-7.45 Lab Interpretation (test code = Normal 49205-3) [facility] [id number] 21:40:14 Test Item Value Reference Range Interpretation Comments PH ARTERIAL (BEAKER) (test code = 383) 7.37 7.35-7.45 POCT-GLUCOSE [id number] 18:07:04 Test Item Value Reference Range Interpretation Comments POC-GLUCOSE METER 208 mg/dL 70-110 H : TESTED A T [facility] 6720 (BEAKER) (test code = YUD[place], 1538) [address]: [employer]/Techni kelle ID = [id number] for Chilo Mccarty BLOOD GAS, [id number] 12:45:46 Test Item Value Reference Range Interpretation Comments PH ARTERIAL (BEAKER) (test code = 7.34 7.35-7.45 L 383) PCO2 ARTERIAL (BEAKER) (test code 33 mm Hg 35-45 L = 384) PO2 ARTERIAL (BEAKER) (test code 140 mm Hg 80-90 H = 385) O2 SATURATION ARTERIAL (BEAKER) 98.6 % 96.0-97.0 H (test code = 386) HCO3 ARTERIAL (BEAKER) (test code 17 mmol/L 21-29 L = 388) BASE EXCESS ARTERIAL (BEAKER) -7.7 mmol/L -2.0-3.0 L (test code = 387) PATIENT TEMPERATURE (BEAKER) 37.2 (test code = 1818) FIO2 (BEAKER) (test code = 1819) 36.0 BLOOD GAS, [id number] 11:23:57 Test Item Value Reference Range Interpretation Comments PH ARTERIAL (BEAKER) (test code = 7.31 7.35-7.45 L 383) PCO2 ARTERIAL (BEAKER) (test code 32 mm Hg 35-45 L = 384) PO2 ARTERIAL (BEAKER) (test code 171 mm Hg 80-90 H = 385) O2 SATURATION ARTERIAL (BEAKER) 99.0 % 96.0-97.0 H (test code = 386) HCO3 ARTERIAL (BEAKER) (test code 16 mmol/L 21-29 L = 388) BASE EXCESS ARTERIAL (BEAKER) -9.6 mmol/L -2.0-3.0 L (test code = 387) PATIENT TEMPERATURE (BEAKER) 37.5 (test code = 1818) FIO2 (BEAKER) (test code = 1819) 40.0 [id number] 09:37:11 Test Item Value Reference Range Interpretation Comments Scan Result (test code = See scanned report [id number]) BRANDI (test code = BRANDI) See scanned report [place] [id number] 09:37:11 Test Item Value Reference Range Interpretation Comments Scan Result (test code = See scanned report [id number]) BRANDI (test code = BRANDI) See scanned report [place] [id number] 09:37:11 Test Item Value Reference Range Interpretation Comments Scan Result (test code = See scanned report [id number]) BRANDI (test code = BRANDI) See scanned report [place] [id number] 09:37:11 Test Item Value Reference Range Interpretation Comments Scan Result (test code = See scanned report [id number]) BRANDI (test code = BRANDI) See scanned report [place] [id number] 09:37:11 Test Item Value Reference Range Interpretation Comments Scan Result (test code = See scanned report [id number]) BRANDI (test code = BRANDI) See scanned report [place] [id number] 09:37:11 Test Item Value Reference Range Interpretation Comments Scan Result (test code = See scanned report [id number]) BRANDI (test code = BRANDI) See scanned report [place] 39814022-03-18 09:37:11 Test Item Value Reference Range Interpretation Comments Scan Result (test code = See scanned report [id number]) BRANDI (test code = BRANDI) See scanned report [place] 39814022-03-18 09:37:11 Test Item Value Reference Range Interpretation Comments Scan Result (test code = See scanned report [id number]) BRANDI (test code = BARNDI) See scanned report [place] 39814022-03-18 09:37:11 Test Item Value Reference Range Interpretation Comments Scan Result (test code = See scanned report [id number]) BRANDI (test code = BRANDI) See scanned report [place] 39814022-03-18 09:37:11 Test Item Value Reference Range Interpretation Comments Scan Result (test code = See scanned report [id number]) BRANDI (test code = BRANDI) See scanned report [facility] [id number] 09:37:11 Test Item Value Reference Range Interpretation Comments SCAN RESULT (test code = See scanned report [id number]) See scanned reportPOCT-GLUCOSE [id number] 08:52:16 Test Item Value Reference Range Interpretation Comments POC-GLUCOSE METER 165 mg/dL 70-110 H : TESTED A T [facility] 6720 (BEAKER) (test code = YUDY [place], 1538) [address]: [employer]/Techni kelle ID = [id number] for Chilo Mccarty RAD, CHEST, 1 VIEW, NON [id number] 04:10:00Reason for exam:->post-opShould this be performed at the bedside?->Yes [facility] : 1955 Sex: FFINAL REPORT RAD, CHEST, 1 VIEW, NON DEPT INDICATION: post-op NAZ RISON: Prior day's exam FINDINGS: Portable frontal view of the chest. IMPRESSION: Support Lines: Stable Lungs and pleura: Unchanged central venous congestion. No new consolidation or effusion. No pneumothorax. Heart and mediastinum: Stable contours. Additional findings: None. Signed: Andrew Cary Verified Date/Time: 06/19/2021 04:10:04 BASIC METABOLIC [id number] 03:27:20 Test Item Value Reference Range Interpretation Comments SODIUM (BEAKER) 137 meq/L 136-145 (test code = 381) POTASSIUM (BEAKER) 4.8 meq/L 3.5-5.1 (test code = 379) CHLORIDE (BEAKER) 104 meq/L 98-107 (test code = 382) CO2 (BEAKER) (test 18 meq/L 22-29 L code = 355) BLOOD UREA NITROGEN 30 mg/dL 7-21 H (BEAKER) (test code = 354) CREATININE (BEAKER) 4.97 mg/dL 0.57-1.25 H (test code = 358) GLUCOSE RANDOM 120 mg/dL 70-105 H (BEAKER) (test code = 652) CALCIUM (BEAKER) 8.5 mg/dL 8.4-10.2 (test code = 697) EGFR (BEAKER) (test 9 mL/min/1.73 ESTIMAT ED GFR IS code = 1092) sq m NOT ACCURATE CREATININE CLEARANCE IN PREDICTING GLOMERULAR FILTRATION RATE . ESTIMATED GFR I S NOT APPLICABLE FOR DIALYSIS PATIEN TS. [employer] ID - RAKAN [id number] 03:26:39 Test Item Value Reference Range Interpretation Comments MAGNESIUM (BEAKER) (test code = 2.4 mg/dL 1.6-2.6 627) [employer] [facility] ID - RAKAN [id number] 03:26:39 Test Item Value Reference Range Interpretation Comments PHOSPHORUS (BEAKER) (test code = 4.8 mg/dL 2.3-4.7 H 604) [employer] ID - RAKAN [id number] 03:02:29 Test Item Value Reference Range Interpretation Comments PARTIAL THROMBOPLASTIN TIME 35.4 seconds 22.5-36.0 (BEAKER) (test code = 760) PROTHROMBIN TIME/[id number] 03:01:50 Test Item Value Reference Range Interpretation Comments PROTIME (BEAKER) 16.0 seconds 11.9-14.2 H (test code = 759) INR (BEAKER) (test 1.31 See_Comment [Automat ed message] code = 370) The system [employer] generated this result transmitted ref erence range: <=5.90. The reference range was not used to int erpret this result as normal/abnormal . RECOMMENDED COUMADIN/WARFARIN INR THERAPY RANGESSTANDARD DOSE: 2.0 - 3.0 Includes: PROPHYLAXIS forvenous thrombosis, systemic embolization; TREATMENT for venous thrombosis and/or pulmonary embolus.HIGH RISK: Target INR is 2.5-3.5 for patients with mechanical heart valves.CBC (HEMOGRAM ONLY)2021-06-19 02:38:46 Test Item Value Reference Range Interpretation Comments WHITE BLOOD CELL COUNT (BEAKER) 10.6 K/ L 3.5-10.5 H (test code = 775) RED BLOOD CELL COUNT (BEAKER) 2.81 M/ L 3.93-5.22 L (test code = 761) HEMOGLOBIN (BEAKER) (test code = 8.3 GM/DL 11.2-15.7 L 410) HEMATOCRIT (BEAKER) (test code = 26.2 % 34.1-44.9 L 411) MEAN CORPUSCULAR VOLUME (BEAKER) 93.2 fL 79.4-94.8 (test code = 753) MEAN CORPUSCULAR HEMOGLOBIN 29.5 pg 25.6-32.2 (BEAKER) (test code = 751) MEAN CORPUSCULAR HEMOGLOBIN CONC 31.7 GM/DL 32.2-35.5 L (BEAKER) (test code = 752) RED CELL DISTRIBUTION WIDTH 19.9 % 11.7-14.4 H (BEAKER) (test code = 412) PLATELET COUNT (BEAKER) (test code 87 K/CU MM 150-450 L = 756) MEAN PLATELET VOLUME (BEAKER) 11.8 fL 9.4-12.3 (test code = 754) NUCLEATED RED BLOOD CELLS (BEAKER) 0 /100 WBC 0-0 (test code = 413) OXYGEN SATURATION, [id number] 02:28:43 Test Item Value Reference Range Interpretation Comments O2 SATURATION (MEASURED) (BEAKER) 79.3 % (test code = 1455) BLOOD GAS, [id number] 02:25:53 Test Item Value Reference Range Interpretation Comments PH ARTERIAL (BEAKER) (test code = 7.39 7.35-7.45 383) PCO2 ARTERIAL (BEAKER) (test code 34 mm Hg 35-45 L = 384) PO2 ARTERIAL (BEAKER) (test code 135 mm Hg 80-90 H = 385) O2 SATURATION ARTERIAL (BEAKER) 98.7 % 96.0-97.0 H (test code = 386) HCO3 ARTERIAL (BEAKER) (test code 20 mmol/L 21-29 L = 388) BASE EXCESS ARTERIAL (BEAKER) -4.7 mmol/L -2.0-3.0 L (test code = 387) PATIENT TEMPERATURE (BEAKER) 37.1 (test code = 1818) FIO2 (BEAKER) (test code = 1819) 40.0 POCT-GLUCOSE [id number] 00:06:42 Test Item Value Reference Range Interpretation Comments POC-GLUCOSE METER 88 mg/dL 70-110 : TESTED A T [facility] 6720 (BEAKER) (test code = YUDY LLOYD, 1538) 12496: [employer]/Techni kelle ID = [id number] for ERICK RAMIREZ POCT-GLUCOSE [id number] 23:14:53 Test Item Value Reference Range Interpretation Comments POC-GLUCOSE METER 91 mg/dL 70-110 : TESTED A T [facility] 6720 (BEAKER) (test code = [facility], 1538) 08672: [employer] Associate/Techni kelle ID = [id number] for EVITA METZGER (V), ERICK POCT-GLUCOSE [id number] 21:30:27 Test Item Value Reference Range Interpretation Comments POC-GLUCOSE METER 128 mg/dL 70-110 H : TESTED A T [facility] 6720 (BEAKER) (test code = [facility], 1538) 21511: [employer] Associate/Techni kelle ID = [id number] for WILLARD HERZOG (V), ERICK POCT-GLUCOSE [id number] 19:05:18 Test Item Value Reference Range Interpretation Comments POC-GLUCOSE METER 165 mg/dL 70-110 H : TESTED A T [facility] 6720 (BEAKER) (test code = [facility], 1538) 62293: [employer] Associate/Techni kelle ID = [id number] for MARIBEL BERUMENSMI BASIC METABOLIC [id number] 18:47:16 Test Item Value Reference Range Interpretation Comments SODIUM (BEAKER) 135 meq/L 136-145 L (test code = 381) POTASSIUM (BEAKER) 4.5 meq/L 3.5-5.1 (test code = 379) CHLORIDE (BEAKER) 104 meq/L 98-107 (test code = 382) CO2 (BEAKER) (test 22 meq/L 22-29 code = 355) BLOOD UREA NITROGEN 26 mg/dL 7-21 H (BEAKER) (test code = 354) CREATININE (BEAKER) 4.74 mg/dL 0.57-1.25 H (test code = 358) GLUCOSE RANDOM 201 mg/dL 70-105 H (BEAKER) (test code = 652) CALCIUM (BEAKER) 8.3 mg/dL 8.4-10.2 L (test code = 697) EGFR (BEAKER) (test 9 mL/min/1.73 ESTIMAT ED GFR IS code = 1092) sq m NOT ACCURATE CREATININE CLEARANCE IN PREDICTING GLOMERULAR FILTRATION RATE . ESTIMATED GFR I S NOT APPLICABLE FOR DIALYSIS PATIEN TS. [employer] ID - HIEN [id number] 18:44:55 Test Item Value Reference Range Interpretation Comments MAGNESIUM (BEAKER) (test code = 2.5 mg/dL 1.6-2.6 627) [employer] ID - HIEN [id number] 18:44:55 Test Item Value Reference Range Interpretation Comments PHOSPHORUS (BEAKER) (test code = 4.7 mg/dL 2.3-4.7 604) [employer] Associate ID Bassam STANFORD MBLOOD GAS, [id number] 18:43:01 Test Item Value Reference Range Interpretation Comments PH ARTERIAL (BEAKER) (test code = 7.39 7.35-7.45 383) PCO2 ARTERIAL (BEAKER) (test code 36 mm Hg 35-45 = 384) PO2 ARTERIAL (BEAKER) (test code 197 mm Hg 80-90 H = 385) O2 SATURATION ARTERIAL (BEAKER) 99.3 % 96.0-97.0 H (test code = 386) HCO3 ARTERIAL (BEAKER) (test code 21 mmol/L 21-29 = 388) BASE EXCESS ARTERIAL (BEAKER) -3.4 mmol/L -2.0-3.0 L (test code = 387) PATIENT TEMPERATURE (BEAKER) 37.0 (test code = 1818) FIO2 (BEAKER) (test code = 1819) 60.0 OXYGEN SATURATION, [id number] 18:40:36 Test Item Value Reference Range Interpretation Comments O2 SATURATION (MEASURED) (BEAKER) 90.5 % (test code = 1455) Lactic Acid, [id number] 18:40:35 Test Item Value Reference Range Interpretation Comments Lactate, Art (test code = 2.1 mmol/L 0.5-2.2 2874) BRANDI (test code = BRANDI) [employer] NORAH STANFORD M Lab Interpretation (test Normal code = 96600-8) [facility], [id number] 18:40:35 Test Item Value Reference Range Interpretation Comments Lactate, Art (test code = 2.1 mmol/L 0.5-2.2 2874) BRANDI (test code = BRANDI) [employer] NORAH STANFORD M Lab Interpretation (test Normal code = 06067-6) [facility], [id number] 18:40:35 Test Item Value Reference Range Interpretation Comments Lactate, Art (test code = 2.1 mmol/L 0.5-2.2 2874) BRANDI (test code = BRANDI) [employer] NORAH KIMA M Lab Interpretation (test Normal code = 24916-7) [facility], [id number] 18:40:35 Test Item Value Reference Range Interpretation Comments Lactate, Art (test code = 2.1 mmol/L 0.5-2.2 2874) BRANDI (test code = BRANDI) [employer] ID - HIEN M Lab Interpretation (test Normal code = 61912-0) [facility], [id number] 18:40:35 Test Item Value Reference Range Interpretation Comments Lactate, Art (test code = 2.1 mmol/L 0.5-2.2 2874) BRANDI (test code = BRANDI) [employer] ID - HIEN M Lab Interpretation (test Normal code = 81226-3) [facility], [id number] 18:40:35 Test Item Value Reference Range Interpretation Comments Lactate, Art (test code = 2.1 mmol/L 0.5-2.2 2874) BRANDI (test code = BRANDI) [employer] ID - HIEN M Lab Interpretation (test Normal code = 65705-9) [facility], [id number] 18:40:35 Test Item Value Reference Range Interpretation Comments Lactate, Art (test code = 2.1 mmol/L 0.5-2.2 2874) BRANDI (test code = BRANDI) [employer] ID - HIEN M Lab Interpretation (test Normal code = 44966-2) [facility], [id number] 18:40:35 Test Item Value Reference Range Interpretation Comments Lactate, Art (test code = 2.1 mmol/L 0.5-2.2 2874) BRANDI (test code = BRANDI) [employer] ID - HIEN M Lab Interpretation (test Normal code = 73574-8) [facility], [id number] 18:40:35 Test Item Value Reference Range Interpretation Comments Lactate, Art (test code = 2.1 mmol/L 0.5-2.2 2874) BRANDI (test code = BRANDI) [employer] ID - HIEN M Lab Interpretation (test Normal code = 19250-8) [facility], [id number] 18:40:35 Test Item Value Reference Range Interpretation Comments Lactate, Art (test code = 2.1 mmol/L 0.5-2.2 2874) BRANDI (test code = BRANDI) [employer] Associate ID - HIEN Hernandes Lab Interpretation (test Normal code = 05577-5) [facility] CenterLACTIC ACID, [id number] 18:40:35 Test Item Value Reference Range Interpretation Comments LACTATE BLOOD ARTERIAL (2) 2.1 mmol/L 0.5-2.2 (BEAKER) (test code = 2874) [employer] Associate ID - HIEN [id number] 18:38:33 Test Item Value Reference Range Interpretation Comments PARTIAL THROMBOPLASTIN TIME 37.2 seconds 22.5-36.0 H (BEAKER) (test code = 760) PROTHROMBIN [id number] 18:37:33 Test Item Value Reference Range Interpretation Comments PROTIME (BEAKER) 16.6 seconds 11.9-14.2 H (test code = 759) INR (BEAKER) (test 1.37 See_Comment [Automat ed message] code = 370) The system [employer] generated this result transmitted ref erence range: <=5.90. The reference range was not used to int erpret this result as normal/abnormal . RECOMMENDED COUMADIN/WARFARIN INR THERAPY RANGESSTANDARD DOSE: 2.0 - 3.0 Includes: PROPHYLAXIS forvenous thrombosis, systemic embolization; TREATMENT for venous thrombosis and/or pulmonary embolus.HIGH RISK: Target INR is 2.5-3.5 for patients with mechanical heart valves.CBC (HEMOGRAM ONLY)2021-06-18 18:27:50 Test Item Value Reference Range Interpretation Comments WHITE BLOOD CELL COUNT (BEAKER) 14.5 K/ L 3.5-10.5 H (test code = 775) RED BLOOD CELL COUNT (BEAKER) 3.25 M/ L 3.93-5.22 L (test code = 761) HEMOGLOBIN (BEAKER) (test code = 9.6 GM/DL 11.2-15.7 L 410) HEMATOCRIT (BEAKER) (test code = 30.5 % 34.1-44.9 L 411) MEAN CORPUSCULAR VOLUME (BEAKER) 93.8 fL 79.4-94.8 (test code = 753) MEAN CORPUSCULAR HEMOGLOBIN 29.5 pg 25.6-32.2 (BEAKER) (test code = 751) MEAN CORPUSCULAR HEMOGLOBIN CONC 31.5 GM/DL 32.2-35.5 L (BEAKER) (test code = 752) RED CELL DISTRIBUTION WIDTH 19.8 % 11.7-14.4 H (BEAKER) (test code = 412) PLATELET COUNT (BEAKER) (test code 94 K/CU MM 150-450 L = 756) MEAN PLATELET VOLUME (BEAKER) 11.0 fL 9.4-12.3 (test code = 754) NUCLEATED RED BLOOD CELLS (BEAKER) 0 /100 WBC 0-0 (test code = 413) HGB/HCT (H&H)-Stat [id number] 16:13:19 Test Item Value Reference Range Interpretation Comments Hemoglobin (test code = 10.6 See_Comment L [Au tomated message] 786-4) The system [employer] generated this result transmitted ref erence range: 12.0 - 1 5.0 GM/DL. The refe rence range was not u sed to interpret this result as normal/abnor mal. Hematocrit (test code = 31.0 % 36.0-45.0 L 4544-3) Lab Interpretation (test Abnormal code = 40783-5) [facility]Stat [id number] 16:13:19 Test Item Value Reference Range Interpretation Comments Hemoglobin (test code = 10.6 See_Comment L [Au tomated message] 786-4) The system [employer] generated this result transmitted ref erence range: 12.0 - 1 5.0 GM/DL. The refe rence range was not u sed to interpret this result as normal/abnor mal. Hematocrit (test code = 31.0 % 36.0-45.0 L 4544-3) Lab Interpretation (test Abnormal code = 79683-1) [facility]Stat [id number] 16:13:19 Test Item Value Reference Range Interpretation Comments Hemoglobin (test code = 10.6 See_Comment L [Au tomated message] 786-4) The system [employer] generated this result transmitted ref erence range: 12.0 - 1 5.0 GM/DL. The refe rence range was not u sed to interpret this result as normal/abnor mal. Hematocrit (test code = 31.0 % 36.0-45.0 L 4544-3) Lab Interpretation (test Abnormal code = 64646-7) [facility]Stat [id number] 16:13:19 Test Item Value Reference Range Interpretation Comments Hemoglobin (test code = 10.6 See_Comment L [Au tomated message] 786-4) The system [employer] generated this result transmitted ref erence range: 12.0 - 1 5.0 GM/DL. The refe rence range was not u sed to interpret this result as normal/abnor mal. Hematocrit (test code = 31.0 % 36.0-45.0 L 4544-3) Lab Interpretation (test Abnormal code = 61349-2) [facility]Stat [id number] 16:13:19 Test Item Value Reference Range Interpretation Comments Hemoglobin (test code = 10.6 See_Comment L [Au tomated message] 786-4) The system [employer] generated this result transmitted ref erence range: 12.0 - 1 5.0 GM/DL. The refe rence range was not u sed to interpret this result as normal/abnor mal. Hematocrit (test code = 31.0 % 36.0-45.0 L 4544-3) Lab Interpretation (test Abnormal code = 45961-6) [facility] [id number] 16:13:19 Test Item Value Reference Range Interpretation Comments Hemoglobin (test code = 10.6 See_Comment L [Au tomated message] 786-4) The system [employer] generated this result transmitted ref erence range: 12.0 - 1 5.0 GM/DL. The refe rence range was not u sed to interpret this result as normal/abnor mal. Hematocrit (test code = 31.0 % 36.0-45.0 L 4544-3) Lab Interpretation (test Abnormal code = 62582-9) [facility] [id number] 16:13:19 Test Item Value Reference Range Interpretation Comments Hemoglobin (test code = 10.6 See_Comment L [Au tomated message] 786-4) The system [employer] generated this result transmitted ref erence range: 12.0 - 1 5.0 GM/DL. The refe rence range was not u sed to interpret this result as normal/abnor mal. Hematocrit (test code = 31.0 % 36.0-45.0 L 4544-3) Lab Interpretation (test Abnormal code = 57601-7) [facility]Stat [id number] 16:13:19 Test Item Value Reference Range Interpretation Comments Hemoglobin (test code = 10.6 See_Comment L [Au tomated message] 786-4) The system [employer] generated this result transmitted ref erence range: 12.0 - 1 5.0 GM/DL. The refe rence range was not u sed to interpret this result as normal/abnor mal. Hematocrit (test code = 31.0 % 36.0-45.0 L 4544-3) Lab Interpretation (test Abnormal code = 32853-0) [facility] [id number] 16:13:19 Test Item Value Reference Range Interpretation Comments Hemoglobin (test code = 10.6 See_Comment L [Au tomated message] 786-4) The system [employer] generated this result transmitted ref erence range: 12.0 - 1 5.0 GM/DL. The refe rence range was not u sed to interpret this result as normal/abnor mal. Hematocrit (test code = 31.0 % 36.0-45.0 L 4544-3) Lab Interpretation (test Abnormal code = 31251-6) [facility]Stat [id number] 16:13:19 Test Item Value Reference Range Interpretation Comments Hemoglobin (test code = 10.6 See_Comment L [Au tomated message] 786-4) The system [employer] generated this result transmitted ref erence range: 12.0 - 1 5.0 GM/DL. The refe rence range was not u sed to interpret this result as normal/abnor mal. Hematocrit (test code = 31.0 % 36.0-45.0 L 4544-3) Lab Interpretation (test Abnormal code = 59929-4) [facility] - STAT [id number] 16:13:19 Test Item Value Reference Range Interpretation Comments HEMOGLOBIN (BEAKER) (test code = 10.6 GM/DL 12.0-15.0 L 410) HEMATOCRIT (BEAKER) (test code = 31.0 % 36.0-45.0 L 411) Glucose-Stat [id number] 16:13:18 Test Item Value Reference Range Interpretation Comments Glucose (test code = 2345-7) 205 mg/dL 70-110 H Lab Interpretation (test code = Abnormal 50577-2) [facility] [id number] 16:13:18 Test Item Value Reference Range Interpretation Comments Sodium (test code = 2951-2) 134 meq/L 136-145 L Lab Interpretation (test code = Abnormal 95420-0) [facility] [id number] 16:13:18 Test Item Value Reference Range Interpretation Comments Glucose (test code = 2345-7) 205 mg/dL 70-110 H Lab Interpretation (test code = Abnormal 09679-5) [facility] [id number] 16:13:18 Test Item Value Reference Range Interpretation Comments Sodium (test code = 2951-2) 134 meq/L 136-145 L Lab Interpretation (test code = Abnormal 06486-7) [facility] [id number] 16:13:18 Test Item Value Reference Range Interpretation Comments Glucose (test code = 2345-7) 205 mg/dL 70-110 H Lab Interpretation (test code = Abnormal 44145-0) [facility] [id number] 16:13:18 Test Item Value Reference Range Interpretation Comments Sodium (test code = 2951-2) 134 meq/L 136-145 L Lab Interpretation (test code = Abnormal 45275-6) [facility]Gl[facility]Stat [id number] 16:13:18 Test Item Value Reference Range Interpretation Comments Glucose (test code = 2345-7) 205 mg/dL 70-110 H Lab Interpretation (test code = Abnormal 44145-1) [facility] [id number] 16:13:18 Test Item Value Reference Range Interpretation Comments Sodium (test code = 2951-2) 134 meq/L 136-145 L Lab Interpretation (test code = Abnormal 30838-6) [facility]Gl[facility]Stat [id number] 16:13:18 Test Item Value Reference Range Interpretation Comments Glucose (test code = 2345-7) 205 mg/dL 70-110 H Lab Interpretation (test code = Abnormal 35823-0) [facility] Na-Stat [id number] 16:13:18 Test Item Value Reference Range Interpretation Comments Sodium (test code = 2951-2) 134 meq/L 136-145 L Lab Interpretation (test code = Abnormal 21045-6) [facility] [id number] 16:13:18 Test Item Value Reference Range Interpretation Comments Glucose (test code = 2345-7) 205 mg/dL 70-110 H Lab Interpretation (test code = Abnormal 60528-2) [facility] [id number] 16:13:18 Test Item Value Reference Range Interpretation Comments Sodium (test code = 2951-2) 134 meq/L 136-145 L Lab Interpretation (test code = Abnormal 56807-1) [facility]Gl[facility] [id number] 16:13:18 Test Item Value Reference Range Interpretation Comments Glucose (test code = 2345-7) 205 mg/dL 70-110 H Lab Interpretation (test code = Abnormal 51260-5) [facility] [id number] 16:13:18 Test Item Value Reference Range Interpretation Comments Sodium (test code = 2951-2) 134 meq/L 136-145 L Lab Interpretation (test code = Abnormal 91649-3) [facility]Gl[facility]Stat [id number] 16:13:18 Test Item Value Reference Range Interpretation Comments Glucose (test code = 2345-7) 205 mg/dL 70-110 H Lab Interpretation (test code = Abnormal 97043-9) [facility] [id number] 16:13:18 Test Item Value Reference Range Interpretation Comments Sodium (test code = 2951-2) 134 meq/L 136-145 L Lab Interpretation (test code = Abnormal 40324-0) [facility]Gl[facility]Stat [id number] 16:13:18 Test Item Value Reference Range Interpretation Comments Glucose (test code = 2345-7) 205 mg/dL 70-110 H Lab Interpretation (test code = Abnormal 70777-3) [facility] [id number] 16:13:18 Test Item Value Reference Range Interpretation Comments Sodium (test code = 2951-2) 134 meq/L 136-145 L Lab Interpretation (test code = Abnormal 07076-3) [facility]Gl[facility] [id number] 16:13:18 Test Item Value Reference Range Interpretation Comments Glucose (test code = 2345-7) 205 mg/dL 70-110 H Lab Interpretation (test code = Abnormal 04447-5) [facility] [id number] 16:13:18 Test Item Value Reference Range Interpretation Comments Sodium (test code = 2951-2) 134 meq/L 136-145 L Lab Interpretation (test code = Abnormal 02546-9) [facility] [id number] 16:13:18 Test Item Value Reference Range Interpretation Comments SODIUM (BEAKER) (test code = 381) 134 meq/L 136-145 L GLUCOSE-STAT [id number] 16:13:18 Test Item Value Reference Range Interpretation Comments GLUCOSE RANDOM (BEAKER) (test code 205 mg/dL 70-110 H = 652) BLOOD GAS, [id number] 16:13:17 Test Item Value Reference Range Interpretation Comments PH ARTERIAL (BEAKER) (test code = 7.45 7.35-7.45 383) PCO2 ARTERIAL (BEAKER) (test code 31 mm Hg 35-45 L = 384) PO2 ARTERIAL (BEAKER) (test code 209 mm Hg 80-90 H = 385) O2 SATURATION ARTERIAL (BEAKER) 99.5 % 96.0-97.0 H (test code = 386) HCO3 ARTERIAL (BEAKER) (test code 21 mmol/L 21-29 = 388) BASE EXCESS ARTERIAL (BEAKER) -2.2 mmol/L -2.0-3.0 L (test code = 387) PATIENT TEMPERATURE (BEAKER) 37.0 (test code = 1818) FIO2 (BEAKER) (test code = 1819) 60.0 Potassium-Stat [id number] 16:11:46 Test Item Value Reference Range Interpretation Comments Potassium (test code = 2823-3) 4.5 meq/L 3.6-5.5 Lab Interpretation (test code = Normal 59665-0) [facility] [id number] 16:11:46 Test Item Value Reference Range Interpretation Comments Potassium (test code = 2823-3) 4.5 meq/L 3.6-5.5 Lab Interpretation (test code = Normal 38550-5) [facility] [id number] 16:11:46 Test Item Value Reference Range Interpretation Comments Potassium (test code = 2823-3) 4.5 meq/L 3.6-5.5 Lab Interpretation (test code = Normal 13338-8) [facility] [id number] 16:11:46 Test Item Value Reference Range Interpretation Comments Potassium (test code = 2823-3) 4.5 meq/L 3.6-5.5 Lab Interpretation (test code = Normal 74753-3) [facility] [id number] 16:11:46 Test Item Value Reference Range Interpretation Comments Potassium (test code = 2823-3) 4.5 meq/L 3.6-5.5 Lab Interpretation (test code = Normal 02368-8) [facility] [id number] 16:11:46 Test Item Value Reference Range Interpretation Comments Potassium (test code = 2823-3) 4.5 meq/L 3.6-5.5 Lab Interpretation (test code = Normal 39469-9) [facility] [id number] 16:11:46 Test Item Value Reference Range Interpretation Comments Potassium (test code = 2823-3) 4.5 meq/L 3.6-5.5 Lab Interpretation (test code = Normal 51088-4) [facility] [id number] 16:11:46 Test Item Value Reference Range Interpretation Comments Potassium (test code = 2823-3) 4.5 meq/L 3.6-5.5 Lab Interpretation (test code = Normal 84358-3) [facility] [id number] 16:11:46 Test Item Value Reference Range Interpretation Comments Potassium (test code = 2823-3) 4.5 meq/L 3.6-5.5 Lab Interpretation (test code = Normal 81363-5) [facility] [id number] 16:11:46 Test Item Value Reference Range Interpretation Comments Potassium (test code = 2823-3) 4.5 meq/L 3.6-5.5 Lab Interpretation (test code = Normal 21373-7) [facility] [id number] 16:11:46 Test Item Value Reference Range Interpretation Comments POTASSIUM (BEAKER) (test code = 4.5 meq/L 3.6-5.5 379) CALCIUM, [id number] 16:11:08 Test Item Value Reference Range Interpretation Comments CALCIUM IONIZED (BEAKER) (test 1.16 mmol/L 1.12-1.27 code = 698) PH, BLOOD (BEAKER) (test code = 7.44 1810) Manual Hccplszbqduz1466-19-66 16:00:23 Test Item Value Reference Range Interpretation Comments % Neutros (test code = 89 % 2815) % Lymphs (test code = 4 % 2816) % Monos (test code = 6 % 2817) % Myelo (test code = 1 % 0-0 H 2821) # Neutros (test code = 14.42 K/ul 1.56-6.13 H 2830) # Lymphs (test code = 0.65 K/ul 1.18-3.74 L 2831) # Monos (test code = 0.97 K/uL 0.24-0.36 H 2832) # Myelo (test code = 0.16 K/uL 0.00-0.00 H 2837) Total Counted (test code 100 = 1351) Platelet Morphology (test Normal code = 486) Smudge Cells (test code = Present 1371) Anisocytosis (test code = 1+ few 961) Macrocytes (test code = 1+ few 964) Poikilocytes (test code = 1+ few 966) [place] Cells (test code = 1+ few 474) Artifact (test code = Present 3432) Platelet Conc (test code Decreased = 3438) BRANDI (test code = BRANDI) [employer] ID - Liza Lu comments: Slide comments: Lab Interpretation (test Abnormal code = 13068-8) [facility] Hbidigqetvek1066-32-52 16:00:23 Test Item Value Reference Range Interpretation Comments % Neutros (test code = 89 % 2816) % Lymphs (test code = 4 % 2817) % Monos (test code = 6 % 2818) % Myelo (test code = 1 % 0-0 H 2822) # Neutros (test code = 14.42 K/ul 1.56-6.13 H 2830) # Lymphs (test code = 0.65 K/ul 1.18-3.74 L 2831) # Monos (test code = 0.97 K/uL 0.24-0.36 H 2832) # Myelo (test code = 0.16 K/uL 0.00-0.00 H 2837) Total Counted (test code 100 = 1351) Platelet Morphology (test Normal code = 486) Smudge Cells (test code = Present 1371) Anisocytosis (test code = 1+ few 961) Macrocytes (test code = 1+ few 964) Poikilocytes (test code = 1+ few 966) Veronika Cells (test code = 1+ few 474) Artifact (test code = Present 3432) Platelet Conc (test code Decreased = 3438) BRANDI (test code = BRANDI) [employer] ID - Liza Lu comments: Slide comments: Lab Interpretation (test Abnormal code = 17186-9) [facility] Ygnuxwwpnqzu2366-58-20 16:00:23 Test Item Value Reference Range Interpretation Comments % Neutros (test code = 89 % 2816) % Lymphs (test code = 4 % 2817) % Monos (test code = 6 % 2818) % Myelo (test code = 1 % 0-0 H 2822) # Neutros (test code = 14.42 K/ul 1.56-6.13 H 2830) # Lymphs (test code = 0.65 K/ul 1.18-3.74 L 2831) # Monos (test code = 0.97 K/uL 0.24-0.36 H 2832) # Myelo (test code = 0.16 K/uL 0.00-0.00 H 2837) Total Counted (test code 100 = 1351) Platelet Morphology (test Normal code = 486) Smudge Cells (test code = Present 1371) Anisocytosis (test code = 1+ few 961) Macrocytes (test code = 1+ few 964) Poikilocytes (test code = 1+ few 966) [place] Cells (test code = 1+ few 474) Artifact (test code = Present 3432) Platelet Conc (test code Decreased = 3438) BRANDI (test code = BRANDI) [employer] ID - Liza Lu comments: Slide comments: Lab Interpretation (test Abnormal code = 57007-8) [facility] Lgrnplbintdm7047-65-06 16:00:23 Test Item Value Reference Range Interpretation Comments % Neutros (test code = 89 % 2816) % Lymphs (test code = 4 % 2817) % Monos (test code = 6 % 2818) % Myelo (test code = 1 % 0-0 H 2822) # Neutros (test code = 14.42 K/ul 1.56-6.13 H 2830) # Lymphs (test code = 0.65 K/ul 1.18-3.74 L 2831) # Monos (test code = 0.97 K/uL 0.24-0.36 H 2832) # Myelo (test code = 0.16 K/uL 0.00-0.00 H 2837) Total Counted (test code 100 = 1351) Platelet Morphology (test Normal code = 486) Smudge Cells (test code = Present 1371) Anisocytosis (test code = 1+ few 961) Macrocytes (test code = 1+ few 964) Poikilocytes (test code = 1+ few 966) Veronika Cells (test code = 1+ few 474) Artifact (test code = Present 3432) Platelet Conc (test code Decreased = 3438) BRANDI (test code = BRANDI) [employer] ID - Liza Lu comments: Slide comments: Lab Interpretation (test Abnormal code = 66875-8) [facility] Urarzvaskxsp9363-74-94 16:00:23 Test Item Value Reference Range Interpretation Comments % Neutros (test code = 89 % 2816) % Lymphs (test code = 4 % 2817) % Monos (test code = 6 % 2818) % Myelo (test code = 1 % 0-0 H 2822) # Neutros (test code = 14.42 K/ul 1.56-6.13 H 2830) # Lymphs (test code = 0.65 K/ul 1.18-3.74 L 2831) # Monos (test code = 0.97 K/uL 0.24-0.36 H 2832) # Myelo (test code = 0.16 K/uL 0.00-0.00 H 2837) Total Counted (test code 100 = 1351) Platelet Morphology (test Normal code = 486) Smudge Cells (test code = Present 1371) Anisocytosis (test code = 1+ few 961) Macrocytes (test code = 1+ few 964) Poikilocytes (test code = 1+ few 966) [place] Cells (test code = 1+ few 474) Artifact (test code = Present 3432) Platelet Conc (test code Decreased = 3438) BRANDI (test code = BRANDI) [employer] ID - Liza Lu comments: Slide comments: Lab Interpretation (test Abnormal code = 16823-3) [facility] Qglrrzrppxft7759-10-60 16:00:23 Test Item Value Reference Range Interpretation Comments % Neutros (test code = 89 % 2816) % Lymphs (test code = 4 % 2817) % Monos (test code = 6 % 2818) % Myelo (test code = 1 % 0-0 H 2822) # Neutros (test code = 14.42 K/ul 1.56-6.13 H 2830) # Lymphs (test code = 0.65 K/ul 1.18-3.74 L 2831) # Monos (test code = 0.97 K/uL 0.24-0.36 H 2832) # Myelo (test code = 0.16 K/uL 0.00-0.00 H 2837) Total Counted (test code 100 = 1351) Platelet Morphology (test Normal code = 486) Smudge Cells (test code = Present 1371) Anisocytosis (test code = 1+ few 961) Macrocytes (test code = 1+ few 964) Poikilocytes (test code = 1+ few 966) Veronika Cells (test code = 1+ few 474) Artifact (test code = Present 3432) Platelet Conc (test code Decreased = 3438) BRANDI (test code = BRANDI) [employer] ID - Liza Tabitha comments: Slide comments: Lab Interpretation (test Abnormal code = 85980-8) [facility] Xjrazwjoplht2037-97-99 16:00:23 Test Item Value Reference Range Interpretation Comments % Neutros (test code = 89 % 2816) % Lymphs (test code = 4 % 2817) % Monos (test code = 6 % 2818) % Myelo (test code = 1 % 0-0 H 2822) # Neutros (test code = 14.42 K/ul 1.56-6.13 H 2830) # Lymphs (test code = 0.65 K/ul 1.18-3.74 L 2831) # Monos (test code = 0.97 K/uL 0.24-0.36 H 2832) # Myelo (test code = 0.16 K/uL 0.00-0.00 H 2837) Total Counted (test code 100 = 1351) Platelet Morphology (test Normal code = 486) Smudge Cells (test code = Present 1371) Anisocytosis (test code = 1+ few 961) Macrocytes (test code = 1+ few 964) Poikilocytes (test code = 1+ few 966) Veronika Cells (test code = 1+ few 474) Artifact (test code = Present 3432) Platelet Conc (test code Decreased = 3438) BRANDI (test code = BRANDI) [employer] ID - Liza Tabitha comments: Slide comments: Lab Interpretation (test Abnormal code = 92852-6) [facility] Iegxdcctynch8925-09-46 16:00:23 Test Item Value Reference Range Interpretation Comments % Neutros (test code = 89 % 2816) % Lymphs (test code = 4 % 2817) % Monos (test code = 6 % 2818) % Myelo (test code = 1 % 0-0 H 2822) # Neutros (test code = 14.42 K/ul 1.56-6.13 H 2830) # Lymphs (test code = 0.65 K/ul 1.18-3.74 L 2831) # Monos (test code = 0.97 K/uL 0.24-0.36 H 2832) # Myelo (test code = 0.16 K/uL 0.00-0.00 H 2837) Total Counted (test code 100 = 1351) Platelet Morphology (test Normal code = 486) Smudge Cells (test code = Present 1371) Anisocytosis (test code = 1+ few 961) Macrocytes (test code = 1+ few 964) Poikilocytes (test code = 1+ few 966) Veronika Cells (test code = 1+ few 474) Artifact (test code = Present 3432) Platelet Conc (test code Decreased = 3438) BRANDI (test code = BRANDI) [employer] ID - Liza Tabitha comments: Slide comments: Lab Interpretation (test Abnormal code = 45089-9) [facility] Nihwgvjsiezj8760-17-35 16:00:23 Test Item Value Reference Range Interpretation Comments % Neutros (test code = 89 % 2816) % Lymphs (test code = 4 % 2817) % Monos (test code = 6 % 2818) % Myelo (test code = 1 % 0-0 H 2822) # Neutros (test code = 14.42 K/ul 1.56-6.13 H 2830) # Lymphs (test code = 0.65 K/ul 1.18-3.74 L 2831) # Monos (test code = 0.97 K/uL 0.24-0.36 H 2832) # Myelo (test code = 0.16 K/uL 0.00-0.00 H 2837) Total Counted (test code 100 = 1351) Platelet Morphology (test Normal code = 486) Smudge Cells (test code = Present 1371) Anisocytosis (test code = 1+ few 961) Macrocytes (test code = 1+ few 964) Poikilocytes (test code = 1+ few 966) [place] Cells (test code = 1+ few 474) Artifact (test code = Present 3432) Platelet Conc (test code Decreased = 3438) BRANDI (test code = BRANDI) [employer] ID - Liza Lu comments: Slide comments: Lab Interpretation (test Abnormal code = 30689-5) [facility] Kisivkemwxpb7463-04-48 16:00:23 Test Item Value Reference Range Interpretation Comments % Neutros (test code = 89 % 2816) % Lymphs (test code = 4 % 2817) % Monos (test code = 6 % 2818) % Myelo (test code = 1 % 0-0 H 2822) # Neutros (test code = 14.42 K/ul 1.56-6.13 H 2830) # Lymphs (test code = 0.65 K/ul 1.18-3.74 L 2831) # Monos (test code = 0.97 K/uL 0.24-0.36 H 2832) # Myelo (test code = 0.16 K/uL 0.00-0.00 H 2837) Total Counted (test code 100 = 1351) Platelet Morphology (test Normal code = 486) Smudge Cells (test code = Present 1371) Anisocytosis (test code = 1+ few 961) Macrocytes (test code = 1+ few 964) Poikilocytes (test code = 1+ few 966) Veronika Cells (test code = 1+ few 474) Artifact (test code = Present 3432) Platelet Conc (test code Decreased = 3438) BRANDI (test code = BRANDI) [employer] ID - Liza Lu comments: Slide comments: Lab Interpretation (test Abnormal code = 43693-9) [facility](CELLAVISION MANUAL DIFF)2021-06-18 16:00:23 Test Item Value Reference Range Interpretation Comments NEUTROPHILS - REL 89 % (CELLAVISION)(BEAKER) (test code = 2816) LYMPHOCYTES - REL 4 % (CELLAVISION)(BEAKER) (test code = 2817) MONOCYTES - REL 6 % (CELLAVISION)(BEAKER) (test code = 2818) MYELOCYTES - REL 1 % 0-0 H (CELLAVISION)(BEAKER) (test code = 2822) NEUTROPHILS - ABS 14.42 K/ul 1.56-6.13 H (CELLAVISION)(BEAKER) (test code = 2830) LYMPHOCYTES - ABS 0.65 K/ul 1.18-3.74 L (CELLAVISION)(BEAKER) (test code = 2831) MONOCYTES - ABS 0.97 K/uL 0.24-0.36 H (CELLAVISION)(BEAKER) (test code = 2832) MYELOCYTES-ABS 0.16 K/uL 0.00-0.00 H (CELLAVISION)(BEAKER) (test code = 2837) TOTAL COUNTED (BEAKER) (test code 100 = 1351) PLT MORPHOLOGY (BEAKER) (test code Normal = 486) SMUDGE CELLS (BEAKER) (test code = Present 1371) ANISOCYTOSIS (BEAKER) (test code = 1+ few 961) MACROCYTES (BEAKER) (test code = 1+ few 964) POIKILOCYTES (BEAKER) (test code = 1+ few 966) VERONIKA CELLS (BEAKER) (test code = 1+ few 474) ARTIFACT (CELLAVISION)(BEAKER) Present (test code = 3432) PLATELET CONCENTRATION Decreased (CELLAVISION)(BEAKER) (test code = 3438) [employer] ID - Liza Lu comments: Slide comments:RAD, CHEST, 1 VIEW, NON [id number] 15:58:00Reason for exam:->Post-opShould this be performed at the bedside?->Yes [facility] 1955 Sex: FFINAL REPORT CHEST AP PORTABLE COMPARISON STUDY: 06/10/2021 History p rovided: Postop evaluation ET tube in place with tip midway between clavicles and marlon. NG tip in the stomach. Right jugular Manteca-Blayne catheter with tip in the right main pulmonary artery. Chest tubes with no pneumothorax. Mild right basilar atelectasis with trace right pleural effusion. Lungs otherwise grossly clear and vascularity normal. Signed: Wero Alvarez MDReport Verified Date/Time: 06/18/2021 15:58:54 Reading Location: [facility] Diagnostic Imaging Reading Room [place] [address] BASIC METABOLIC [id number] 15:57:50 Test Item Value Reference Range Interpretation Comments SODIUM (BEAKER) 135 meq/L 136-145 L (test code = 381) POTASSIUM (BEAKER) 4.8 meq/L 3.5-5.1 (test code = 379) CHLORIDE (BEAKER) 104 meq/L 98-107 (test code = 382) CO2 (BEAKER) (test 22 meq/L 22-29 code = 355) BLOOD UREA NITROGEN 23 mg/dL 7-21 H (BEAKER) (test code = 354) CREATININE (BEAKER) 4.57 mg/dL 0.57-1.25 H (test code = 358) GLUCOSE RANDOM 202 mg/dL 70-105 H (BEAKER) (test code = 652) CALCIUM (BEAKER) 8.3 mg/dL 8.4-10.2 L (test code = 697) EGFR (BEAKER) (test 10 mL/min/1.73 ESTIMA LEVI GFR IS code = 1092) sq m NOT ACCURATE CREATININE CLEARANCE IN PREDICTING GLOMERULAR FILTRATION RATE . ESTIMATED GFR I S NOT APPLICABLE FOR DIALYSIS PATIEN TS. [employer] ID - HIEN NNunlrsqgv-FOZZ6502-39-17 15:57:19 Test Item Value Reference Range Interpretation Comments Potassium (test code = 2823-3) 4.8 meq/L 3.5-5.1 Lab Interpretation (test code = Normal 22348-0) [facility]2022-03-17 15:57:19 Test Item Value Reference Range Interpretation Comments Potassium (test code = 2823-3) 4.8 meq/L 3.5-5.1 Lab Interpretation (test code = Normal 82863-9) [facility]2022-03-17 15:57:19 Test Item Value Reference Range Interpretation Comments Potassium (test code = 2823-3) 4.8 meq/L 3.5-5.1 Lab Interpretation (test code = Normal 12336-5) [facility]2022-03-17 15:57:19 Test Item Value Reference Range Interpretation Comments Potassium (test code = 2823-3) 4.8 meq/L 3.5-5.1 Lab Interpretation (test code = Normal 44689-8) [facility]2022-03-17 15:57:19 Test Item Value Reference Range Interpretation Comments Potassium (test code = 2823-3) 4.8 meq/L 3.5-5.1 Lab Interpretation (test code = Normal 13692-9) [facility]2022-03-17 15:57:19 Test Item Value Reference Range Interpretation Comments Potassium (test code = 2823-3) 4.8 meq/L 3.5-5.1 Lab Interpretation (test code = Normal 33010-0) [facility]2022-03-17 15:57:19 Test Item Value Reference Range Interpretation Comments Potassium (test code = 2823-3) 4.8 meq/L 3.5-5.1 Lab Interpretation (test code = Normal 46336-9) [facility]2022-03-17 15:57:19 Test Item Value Reference Range Interpretation Comments Potassium (test code = 2823-3) 4.8 meq/L 3.5-5.1 Lab Interpretation (test code = Normal 75649-4) [id number] 15:57:19 Test Item Value Reference Range Interpretation Comments Potassium (test code = 2823-3) 4.8 meq/L 3.5-5.1 Lab Interpretation (test code = Normal 39019-0) [facility]IFPR8312-89-86 15:57:19 Test Item Value Reference Range Interpretation Comments Potassium (test code = 2823-3) 4.8 meq/L 3.5-5.1 Lab Interpretation (test code = Normal 51487-2) [facility] 15:57:19 Test Item Value Reference Range Interpretation Comments POTASSIUM (BEAKER) (test code = 4.8 meq/L 3.5-5.1 379) [id number] 15:57:19 Test Item Value Reference Range Interpretation Comments PHOSPHORUS (BEAKER) (test code = 4.9 mg/dL 2.3-4.7 H 604) [employer] ID - HIEN HZKOFSLAER3222-78-89 15:57:18 Test Item Value Reference Range Interpretation Comments MAGNESIUM (BEAKER) (test code = 2.6 mg/dL 1.6-2.6 627) [employer] ID - HIEN MPrepare zuemwb6231-10-03 15:44:00 Test Item Value Reference Range Interpretation Comments Unit ABO (test code = O Neg 7144346) UNIT NUMBER (test code = [id number] 934-0) Status (test code = RETURNED FROM ISSUE 15100613) Blood Bank Product (test FFP code = 2263) PRODUCT CODE (test code = P6597V77 933-2) [facility] sqwvbs1301-90-53 15:44:00 Test Item Value Reference Range Interpretation Comments Unit ABO (test code = O Neg 0740417) UNIT NUMBER (test code = [id number] 934-0) Status (test code = RETURNED FROM ISSUE 6327548) Blood Bank Product (test FFP code = 2263) PRODUCT CODE (test code = P3184O03 933-2) [facility] mmhvpk9257-04-58 15:44:00 Test Item Value Reference Range Interpretation Comments Unit ABO (test code = O Neg 4294856) UNIT NUMBER (test code = [id number] 934-0) Status (test code = RETURNED FROM ISSUE 9701886) Blood Bank Product (test FFP code = 2263) PRODUCT CODE (test code = P0013S80 933-2) [facility] slontz0449-62-44 15:44:00 Test Item Value Reference Range Interpretation Comments Unit ABO (test code = O Neg 4321431) UNIT NUMBER (test code = [id number] 934-0) Status (test code = RETURNED FROM ISSUE 6550146) Blood Bank Product (test FFP code = 2263) PRODUCT CODE (test code = Q4635S40 933-2) [facility] vrpkza8485-14-58 15:44:00 Test Item Value Reference Range Interpretation Comments Unit ABO (test code = O Neg 7766768) UNIT NUMBER (test code = [id number] 934-0) Status (test code = RETURNED FROM ISSUE 8252503) Blood Bank Product (test FFP code = 2263) PRODUCT CODE (test code = C1625V10 933-2) [facility] wxfsfs2959-30-17 15:44:00 Test Item Value Reference Range Interpretation Comments Unit ABO (test code = O Neg 5561731) UNIT NUMBER (test code = [id number] 934-0) Status (test code = RETURNED FROM ISSUE 2571474) Blood Bank Product (test FFP code = 2263) PRODUCT CODE (test code = N3154E09 933-2) [facility] yhviea7838-52-97 15:44:00 Test Item Value Reference Range Interpretation Comments Unit ABO (test code = O Neg 3705463) UNIT NUMBER (test code = [id number] 934-0) Status (test code = RETURNED FROM ISSUE 6927208) Blood Bank Product (test FFP code = 2263) PRODUCT CODE (test code = K2626C82 933-2) [facility] xurrzn2612-29-97 15:44:00 Test Item Value Reference Range Interpretation Comments Unit ABO (test code = O Neg 8548989) UNIT NUMBER (test code = [id number] 934-0) Status (test code = RETURNED FROM ISSUE 7552571) Blood Bank Product (test FFP code = 2263) PRODUCT CODE (test code = G9992V62 933-2) [facility] ppsjjg4891-15-32 15:44:00 Test Item Value Reference Range Interpretation Comments Unit ABO (test code = O Neg 4262592) UNIT NUMBER (test code = [id number] 934-0) Status (test code = RETURNED FROM ISSUE 3613977) Blood Bank Product (test FFP code = 2263) PRODUCT CODE (test code = L5278H01 933-2) [facility] gsxabk1687-98-17 15:44:00 Test Item Value Reference Range Interpretation Comments Unit ABO (test code = O Neg 6326785) UNIT NUMBER (test code = [id number] 934-0) Status (test code = RETURNED FROM ISSUE 4833532) Blood Bank Product (test FFP code = 2263) PRODUCT CODE (test code = A0898U86 933-2) [facility] 15:32:33 Test Item Value Reference Range Interpretation Comments PARTIAL THROMBOPLASTIN TIME 37.6 seconds 22.5-36.0 H (BEAKER) (test code = 760) PROTHROMBIN TIME/[id number] 15:31:52 Test Item Value Reference Range Interpretation Comments PROTIME (BEAKER) 17.9 seconds 11.9-14.2 H (test code = 759) INR (BEAKER) (test 1.50 See_Comment [Automat ed message] code = 370) The system [employer] generated this result transmitted ref erence range: <=5.90. The reference range was not used to int erpret this result as normal/abnormal . RECOMMENDED COUMADIN/WARFARIN INR THERAPY RANGESSTANDARD DOSE: 2.0 - 3.0 Includes: PROPHYLAXIS forvenous thrombosis, systemic embolization; TREATMENT for venous thrombosis and/or pulmonary embolus.HIGH RISK: Target INR is 2.5-3.5 for patients with mechanical heart valves.CBC with platelet count + automated diff 2021-06-18 15:24:09 Test Item Value Reference Range Interpretation Comments WBC (test code = 6690-2) 16.2 See_Comment H [A utomated message] The system [employer] generated this result transmitted ref erence range: 3.5 - 10 .5 K/L. The refe rence range was not u sed to interpret this result as normal/abnor mal. RBC (test code = 789-8) 3.33 See_Comment L [Au tomated message] The system [employer] generated this result transmitted ref erence range: 3.93 - 5 .22 M/L. The refe rence range was not u sed to interpret this result as normal/abnor mal. MCHC (test code = 786-4) 31.8 See_Comment L [A utomated message] The system [employer] generated this result transmitted ref erence range: 32.2 - 3 5.5 GM/DL. The refe rence range was not u sed to interpret this result as normal/abnor mal. Hematocrit (test code = 31.4 % 34.1-44.9 L 4544-3) MCV (test code = 787-2) 94.3 fL 79.4-94.8 MCH (test code = 785-6) 30.0 pg 25.6-32.2 RDW (test code = 788-0) 19.2 % 11.7-14.4 H Platelets (test code = 100 See_Comment L [Aut omated message] 777-3) The system [employer] generated this result transmitted ref erence range: 150 - 45 0 K/CU MM. The referen ce range was not u sed to interpret this result as normal/abnor mal. MPV (test code = 10.3 fL 9.4-12.3 75726-2) nRBC (test code = 413) 0 See_Comment [Aut omated message] The system [employer] generated this result transmitted ref erence range: 0 - 0 /1 00 WBC. The refere nce range was not u sed to interpret this result as normal/abnor mal. Lab Interpretation (test Abnormal code = 37588-1) [facility] with platelet count + automated [id number] 15:24:09 Test Item Value Reference Range Interpretation Comments WBC (test code = 6690-2) 16.2 See_Comment H [A utomated message] The system [employer] generated this result transmitted ref erence range: 3.5 - 10 .5 K/L. The refe rence range was not u sed to interpret this result as normal/abnor mal. RBC (test code = 789-8) 3.33 See_Comment L [Au tomated message] The system [employer] generated this result transmitted ref erence range: 3.93 - 5 .22 M/L. The refe rence range was not u sed to interpret this result as normal/abnor mal. MCHC (test code = 786-4) 31.8 See_Comment L [A utomated message] The system [employer] generated this result transmitted ref erence range: 32.2 - 3 5.5 GM/DL. The refe rence range was not u sed to interpret this result as normal/abnor mal. Hematocrit (test code = 31.4 % 34.1-44.9 L 4544-3) MCV (test code = 787-2) 94.3 fL 79.4-94.8 MCH (test code = 785-6) 30.0 pg 25.6-32.2 RDW (test code = 788-0) 19.2 % 11.7-14.4 H Platelets (test code = 100 See_Comment L [Aut omated message] 777-3) The system [employer] generated this result transmitted ref erence range: 150 - 45 0 K/CU MM. The referen ce range was not u sed to interpret this result as normal/abnor mal. MPV (test code = 10.3 fL 9.4-12.3 12175-6) nRBC (test code = 413) 0 See_Comment [Aut omated message] The system [employer] generated this result transmitted ref erence range: 0 - 0 /1 00 WBC. The refere nce range was not u sed to interpret this result as normal/abnor mal. Lab Interpretation (test Abnormal code = 83102-2) [facility] W/PLT COUNT & AUTO [id number] 15:24:09 Test Item Value Reference Range Interpretation Comments WHITE BLOOD CELL COUNT (BEAKER) 16.2 K/ L 3.5-10.5 H (test code = 775) RED BLOOD CELL COUNT (BEAKER) 3.33 M/ L 3.93-5.22 L (test code = 761) HEMOGLOBIN (BEAKER) (test code = 10.0 GM/DL 11.2-15.7 L 410) HEMATOCRIT (BEAKER) (test code = 31.4 % 34.1-44.9 L 411) MEAN CORPUSCULAR VOLUME (BEAKER) 94.3 fL 79.4-94.8 (test code = 753) MEAN CORPUSCULAR HEMOGLOBIN 30.0 pg 25.6-32.2 (BEAKER) (test code = 751) MEAN CORPUSCULAR HEMOGLOBIN CONC 31.8 GM/DL 32.2-35.5 L (BEAKER) (test code = 752) RED CELL DISTRIBUTION WIDTH 19.2 % 11.7-14.4 H (BEAKER) (test code = 412) PLATELET COUNT (BEAKER) (test 100 K/CU MM 150-450 L code = 756) MEAN PLATELET VOLUME (BEAKER) 10.3 fL 9.4-12.3 (test code = 754) NUCLEATED RED BLOOD CELLS 0 /100 WBC 0-0 (BEAKER) (test code = 413) Hemoglobin and vpnyuqmier9403-45-34 15:23:11 Test Item Value Reference Range Interpretation Comments Hemoglobin (test code = 10.0 See_Comment L [Au tomated message] 786-4) The system [employer] generated this result transmitted ref erence range: 11.2 - 1 5.7 GM/DL. The refe rence range was not u sed to interpret this result as normal/abnor mal. Hematocrit (test code = 31.4 % 34.1-44.9 L 4544-3) Lab Interpretation (test Abnormal code = 53183-3) [facility] CenterHEMOGLOBIN AND [id number] 15:23:11 Test Item Value Reference Range Interpretation Comments HEMOGLOBIN (BEAKER) (test code = 10.0 GM/DL 11.2-15.7 L 410) HEMATOCRIT (BEAKER) (test code = 31.4 % 34.1-44.9 L 411) BLOOD GAS, [id number] 15:19:54 Test Item Value Reference Range Interpretation Comments PH ARTERIAL (BEAKER) (test code = 7.41 7.35-7.45 383) PCO2 ARTERIAL (BEAKER) (test code 35 mm Hg 35-45 = 384) PO2 ARTERIAL (BEAKER) (test code 147 mm Hg 80-90 H = 385) O2 SATURATION ARTERIAL (BEAKER) 99.0 % 96.0-97.0 H (test code = 386) HCO3 ARTERIAL (BEAKER) (test code 22 mmol/L 21-29 = 388) BASE EXCESS ARTERIAL (BEAKER) -2.9 mmol/L -2.0-3.0 L (test code = 387) PATIENT TEMPERATURE (BEAKER) 35.5 (test code = 1818) FIO2 (BEAKER) (test code = 1819) 75.0 HGB/HCT (H&H) - STAT [id number] 15:19:53 Test Item Value Reference Range Interpretation Comments HEMOGLOBIN (BEAKER) (test code = 10.6 GM/DL 12.0-15.0 L 410) HEMATOCRIT (BEAKER) (test code = 31.0 % 36.0-45.0 L 411) GLUCOSE-STAT [id number] 15:19:46 Test Item Value Reference Range Interpretation Comments GLUCOSE RANDOM (BEAKER) (test code 200 mg/dL 70-110 H = 652) OXYGEN SATURATION, [id number] 15:18:32 Test Item Value Reference Range Interpretation Comments O2 SATURATION (MEASURED) (BEAKER) 83.4 % (test code = 1455) POTASSIUM-STAT [id number] 15:18:10 Test Item Value Reference Range Interpretation Comments POTASSIUM (BEAKER) (test code = 4.5 meq/L 3.6-5.5 379) SODIUM NA-STAT [id number] 15:18:09 Test Item Value Reference Range Interpretation Comments SODIUM (BEAKER) (test code = 381) 136 meq/L 136-145 CALCIUM, [id number] 15:18:08 Test Item Value Reference Range Interpretation Comments CALCIUM IONIZED (BEAKER) (test 1.14 mmol/L 1.12-1.27 code = 698) PH, BLOOD (BEAKER) (test code = 7.39 1810) POC ACTIVATED CLOTTING [id number] 14:20:47 Test Item Value Reference Range Interpretation Comments Activated Clotting Time 130 sec : 74 -137 seconds, (test code = 441) Baseline: TESTED AT [address], [address]: [employer] Associate/Techni kelle ID = [id number] for Me ndoza, Rocky CONTRERAS [facility] ACTIVATED CLOTTING [id number] 14:20:47 Test Item Value Reference Range Interpretation Comments Activated Clotting Time 130 sec : 74 -137 seconds, (test code = 441) Baseline: TESTED AT [address], [address]: [employer] Associate/Techni kelle ID = [id number] for Me ndoza, Rocky CONTRERAS [facility] ACTIVATED CLOTTING [id number] 14:20:47 Test Item Value Reference Range Interpretation Comments Activated Clotting Time 130 sec : 74 -137 seconds, (test code = 441) Baseline: TESTED AT [address], [address]: [employer] Associate/Techni kelle ID = [id number] for Me ndoza, Rocky CONTRERAS [facility] ACTIVATED CLOTTING [id number] 14:20:47 Test Item Value Reference Range Interpretation Comments Activated Clotting Time 130 sec : 74 -137 seconds, (test code = 441) Baseline: TESTED AT [address], [address]: [employer] Associate/Techni kelle ID = [id number] for Me ndoza, Rocky CONTRERAS [facility] ACTIVATED CLOTTING [id number] 14:20:47 Test Item Value Reference Range Interpretation Comments Activated Clotting Time 130 sec : 74 -137 seconds, (test code = 441) Baseline: TESTED AT [address], [address]: [employer] Associate/Techni kelle ID = [id number] for Me ndoza, Rocky CONTRERAS [facility] ACTIVATED CLOTTING [id number] 14:20:47 Test Item Value Reference Range Interpretation Comments Activated Clotting Time 130 sec : 74 -137 seconds, (test code = 441) Baseline: TESTED AT [address], [address]: [employer] Associate/Techni kelle ID = [id number] for Me ndoza, Rocky CONTRERAS [facility] ACTIVATED CLOTTING [id number] 14:20:47 Test Item Value Reference Range Interpretation Comments Activated Clotting Time 130 sec : 74 -137 seconds, (test code = 441) Baseline: TESTED AT [address], [address]: [employer] Associate/Techni kelle ID = [id number] for Me ndoza, Rocky [facility] ACTIVATED CLOTTING [id number] 14:20:47 Test Item Value Reference Range Interpretation Comments Activated Clotting Time 130 sec : 74 -137 seconds, (test code = 441) Baseline: TESTED AT [address], [address]: [employer] Associate/Techni kelle ID = [id number] for Me ndoza, Rocky CONTRERAS [facility] ACTIVATED CLOTTING [id number] 14:20:47 Test Item Value Reference Range Interpretation Comments Activated Clotting Time 130 sec : 74 -137 seconds, (test code = 441) Baseline: TESTED AT [address], [address]: [employer] Associate/Techni kelle ID = [id number] for Me ndoza, Rocky [facility] ACTIVATED CLOTTING [id number] 14:20:47 Test Item Value Reference Range Interpretation Comments Activated Clotting Time 130 sec : 74 -137 seconds, (test code = 441) Baseline: TESTED AT [address], [address]: [employer] Associate/Techni kelle ID = [id number] for Me ndoza, Rocky CONTRERAS [facility] CenterPOCT-[id number] 14:20:47 Test Item Value Reference Range Interpretation Comments ACTIVATED CLOTTING TIME 130 sec : 74 -137 seconds, (BEAKER) (test code = Baseli ne: TESTED AT 441) [address], [address]: [employer] Associate/Techni kelle ID = [id number] for Me ndoza, Rocky [id number] 14:20:46 Test Item Value Reference Range Interpretation Comments ACTIVATED CLOTTING TIME 577 sec : 74 -137 seconds, (BEAKER) (test code = Baseli ne: TESTED AT 441) [address], [address]: [employer] Associate/Techni kelle ID = [id number] for Me ndoza, Rocky [id number] 14:20:45 Test Item Value Reference Range Interpretation Comments ACTIVATED CLOTTING TIME 743 sec : 74 -137 seconds, (BEAKER) (test code = Baseli ne: TESTED AT 441) [address], [address]: [employer] Associate/Techni kelle ID = [id number] for Rocky Danielle [id number] 14:20:45 Test Item Value Reference Range Interpretation Comments ACTIVATED CLOTTING TIME 618 sec : 74 -137 seconds, (BEAKER) (test code = Baseli ne: TESTED AT 441) [address], [address]: [employer] Associate/Techni kelle ID = [id number] for Rocky Danielle [id number] 14:20:44 Test Item Value Reference Range Interpretation Comments ACTIVATED CLOTTING TIME 547 sec : 74 -137 seconds, (BEAKER) (test code = Baseli ne: TESTED AT 441) [address], [address]: [employer] Associate/Techni kelle ID = [id number] for Rocky Danielle [id number] 14:20:12 Test Item Value Reference Range Interpretation Comments ACTIVATED CLOTTING TIME 809 sec : 74 -137 seconds, (BEAKER) (test code = Baseli ne: TESTED AT 441) [address], [address]: [employer] Associate/Techni kelle ID = [id number] for Rocky Danielle [id number] 13:49:05 Test Item Value Reference Range Interpretation Comments PARTIAL THROMBOPLASTIN TIME 38.3 seconds 22.5-36.0 H (BEAKER) (test code = 760) [id number] 13:48:43 Test Item Value Reference Range Interpretation Comments Fibrinogen (test code = 3255-7) 246 mg/dl 225-434 Lab Interpretation (test code = Normal 56269-8) [facility] 13:48:43 Test Item Value Reference Range Interpretation Comments Fibrinogen (test code = 3255-7) 246 mg/dl 225-434 Lab Interpretation (test code = Normal 08256-7) [facility] 13:48:43 Test Item Value Reference Range Interpretation Comments Fibrinogen (test code = 3255-7) 246 mg/dl 225-434 Lab Interpretation (test code = Normal 68669-0) [facility] 13:48:43 Test Item Value Reference Range Interpretation Comments Fibrinogen (test code = 3255-7) 246 mg/dl 225-434 Lab Interpretation (test code = Normal 52942-8) [facility]2022-03-17 13:48:43 Test Item Value Reference Range Interpretation Comments Fibrinogen (test code = 3255-7) 246 mg/dl 225-434 Lab Interpretation (test code = Normal 04236-8) [facility]2022-03-17 13:48:43 Test Item Value Reference Range Interpretation Comments Fibrinogen (test code = 3255-7) 246 mg/dl 225-434 Lab Interpretation (test code = Normal 99731-1) [facility]2022-03-17 13:48:43 Test Item Value Reference Range Interpretation Comments Fibrinogen (test code = 3255-7) 246 mg/dl 225-434 Lab Interpretation (test code = Normal 33304-8) [facility]2022-03-17 13:48:43 Test Item Value Reference Range Interpretation Comments Fibrinogen (test code = 3255-7) 246 mg/dl 225-434 Lab Interpretation (test code = Normal 42678-9) [facility]2022-03-17 13:48:43 Test Item Value Reference Range Interpretation Comments Fibrinogen (test code = 3255-7) 246 mg/dl 225-434 Lab Interpretation (test code = Normal 37684-6) [facility]2022-03-17 13:48:43 Test Item Value Reference Range Interpretation Comments Fibrinogen (test code = 3255-7) 246 mg/dl 225-434 Lab Interpretation (test code = Normal 94394-7) [facility]2022-03-17 13:48:43 Test Item Value Reference Range Interpretation Comments FIBRINOGEN LEVEL (BEAKER) (test 246 mg/dl 225-434 code = 658) PROTHROMBIN [id number] 13:48:05 Test Item Value Reference Range Interpretation Comments PROTIME (BEAKER) 19.5 seconds 11.9-14.2 H (test code = 759) INR (BEAKER) (test 1.67 See_Comment [Automat ed message] code = 370) The system [employer] management generated this result transmitted ref erence range: <=5.90. The reference range was not used to int erpret this result as normal/abnormal . RECOMMENDED COUMADIN/WARFARIN INR THERAPY RANGESSTANDARD DOSE: 2.0 - 3.0 Includes: PROPHYLAXIS forvenous thrombosis, systemic embolization; TREATMENT for venous thrombosis and/or pulmonary embolus.HIGH RISK: Target INR is 2.5-3.5 for patients with mechanical heart valves.Platelet [id number] 13:39:36 Test Item Value Reference Range Interpretation Comments Platelets (test code 133 See_Comment L [Autom ated = 777-3) message] The system which generated this result transmit levi reference range : 150 - 450 K/CU MM. The reference range was not u sed to interpret th is result as normal/abnormal . BRANDI (test code = BRANDI) [employer] Associate ID - [id number] Lab Interpretation Abnormal (test code = 37918-0) [facility] [id number] 13:39:36 Test Item Value Reference Range Interpretation Comments Platelets (test code 133 See_Comment L [Autom ated = 777-3) message] The system which generated this result transmit levi reference range : 150 - 450 K/CU MM. The reference range was not u sed to interpret th is result as normal/abnormal . BRANDI (test code = BRANDI) [employer] Associate ID - [id number] Lab Interpretation Abnormal (test code = 60951-9) [facility] [id number] 13:39:36 Test Item Value Reference Range Interpretation Comments Platelets (test code 133 See_Comment L [Autom ated = 777-3) message] The system which generated this result transmit levi reference range : 150 - 450 K/CU MM. The reference range was not u sed to interpret th is result as normal/abnormal . BRANDI (test code = BRANDI) [employer] Associate ID - [id number] Lab Interpretation Abnormal (test code = 93037-3) [facility] [id number] 13:39:36 Test Item Value Reference Range Interpretation Comments Platelets (test code 133 See_Comment L [Autom ated = 777-3) message] The system which generated this result transmit levi reference range : 150 - 450 K/CU MM. The reference range was not u sed to interpret th is result as normal/abnormal . BRANDI (test code = BRANDI) [employer] Associate ID - [id number] Lab Interpretation Abnormal (test code = 58863-8) [facility] [id number] 13:39:36 Test Item Value Reference Range Interpretation Comments Platelets (test code 133 See_Comment L [Autom ated = 777-3) message] The system which generated this result transmit levi reference range : 150 - 450 K/CU MM. The reference range was not u sed to interpret th is result as normal/abnormal . BRANDI (test code = BRANDI) [employer] Associate ID - [id number] Lab Interpretation Abnormal (test code = 66360-4) [facility] [id number] 13:39:36 Test Item Value Reference Range Interpretation Comments Platelets (test code 133 See_Comment L [Autom ated = 777-3) message] The system which generated this result transmit levi reference range : 150 - 450 K/CU MM. The reference range was not u sed to interpret th is result as normal/abnormal . BRANDI (test code = BRANDI) [employer] Associate ID - [id number] Lab Interpretation Abnormal (test code = 34340-7) [facility] [id number] 13:39:36 Test Item Value Reference Range Interpretation Comments Platelets (test code 133 See_Comment L [Autom ated = 777-3) message] The system which generated this result transmit levi reference range : 150 - 450 K/CU MM. The reference range was not u sed to interpret th is result as normal/abnormal . BRANDI (test code = BRANDI) [employer] Associate ID - [id number] Lab Interpretation Abnormal (test code = 47032-9) [facility] [id number] 13:39:36 Test Item Value Reference Range Interpretation Comments Platelets (test code 133 See_Comment L [Autom ated = 777-3) message] The system which generated this result transmit levi reference range : 150 - 450 K/CU MM. The reference range was not u sed to interpret th is result as normal/abnormal . BRANDI (test code = BRANDI) [employer] Associate ID - [id number] Lab Interpretation Abnormal (test code = 76481-6) [facility] [id number] 13:39:36 Test Item Value Reference Range Interpretation Comments Platelets (test code 133 See_Comment L [Autom ated = 777-3) message] The system which generated this result transmit levi reference range : 150 - 450 K/CU MM. The reference range was not u sed to interpret th is result as normal/abnormal . BRANDI (test code = BRANDI) [employer] Associate ID - [id number] Lab Interpretation Abnormal (test code = 98504-1) [facility] [id number] 13:39:36 Test Item Value Reference Range Interpretation Comments Platelets (test code 133 See_Comment L [Autom ated = 777-3) message] The system which generated this result transmit levi reference range : 150 - 450 K/CU MM. The reference range was not u sed to interpret th is result as normal/abnormal . BRANDI (test code = BRANDI) [employer] Associate ID - [id number] Lab Interpretation Abnormal (test code = 17756-8) [facility] [id number] 13:39:36 Test Item Value Reference Range Interpretation Comments PLATELET COUNT (BEAKER) (test 133 K/CU MM 150-450 L code = 756) [employer] Associate ID - [id number]/HCT (H&H) - STAT [id number] 13:26:47 Test Item Value Reference Range Interpretation Comments HEMOGLOBIN (BEAKER) (test code = 7.4 GM/DL 12.0-15.0 L 410) HEMATOCRIT (BEAKER) (test code = 22.0 % 36.0-45.0 L 411) GLUCOSE-STAT [id number] 13:26:46 Test Item Value Reference Range Interpretation Comments GLUCOSE RANDOM (BEAKER) (test code 199 mg/dL 70-110 H = 652) SODIUM NA-STAT [id number] 13:26:46 Test Item Value Reference Range Interpretation Comments SODIUM (BEAKER) (test code = 381) 134 meq/L 136-145 L CALCIUM, [id number] 13:26:40 Test Item Value Reference Range Interpretation Comments CALCIUM IONIZED (BEAKER) (test 1.03 mmol/L 1.12-1.27 L code = 698) PH, BLOOD (BEAKER) (test code = 7.33 1810) BLOOD GAS, [id number] 13:26:34 Test Item Value Reference Range Interpretation Comments PH ARTERIAL (BEAKER) (test code = 7.35 7.35-7.45 383) PCO2 ARTERIAL (BEAKER) (test code 42 mm Hg 35-45 = 384) PO2 ARTERIAL (BEAKER) (test code 224 mm Hg 80-90 H = 385) O2 SATURATION ARTERIAL (BEAKER) 99.4 % 96.0-97.0 H (test code = 386) HCO3 ARTERIAL (BEAKER) (test code 23 mmol/L 21-29 = 388) BASE EXCESS ARTERIAL (BEAKER) -3.1 mmol/L -2.0-3.0 L (test code = 387) PATIENT TEMPERATURE (BEAKER) 36.0 (test code = 1818) FIO2 (BEAKER) (test code = 1819) 100.0 POTASSIUM-STAT [id number] 13:24:59 Test Item Value Reference Range Interpretation Comments POTASSIUM (BEAKER) (test code = 4.5 meq/L 3.6-5.5 379) PLATELET [id number] 13:18:08 Test Item Value Reference Range Interpretation Comments PLATELET COUNT (BEAKER) (test code 53 K/CU MM 150-450 L = 756) [employer] Associate ID - [id number] ID - [id number] ID - [id number] 12:53:55 Test Item Value Reference Range Interpretation Comments PARTIAL THROMBOPLASTIN TIME > seconds 22.5-36.0 HH (BEAKER) (test code = 760) [id number] 12:36:04 Test Item Value Reference Range Interpretation Comments FIBRINOGEN LEVEL (BEAKER) (test 289 mg/dl 225-434 code = 658) PROTHROMBIN [id number] 12:35:28 Test Item Value Reference Range Interpretation Comments PROTIME (BEAKER) 25.4 seconds 11.9-14.2 H (test code = 759) INR (BEAKER) (test 2.35 See_Comment [Automat ed message] code = 370) The system [employer] management generated this result transmitted ref erence range: <=5.90. The reference range was not used to int erpret this result as normal/abnormal . RECOMMENDED COUMADIN/WARFARIN INR THERAPY RANGESSTANDARD DOSE: 2.0 - 3.0 Includes: PROPHYLAXIS forvenous thrombosis, systemic embolization; TREATMENT for venous thrombosis and/or pulmonary embolus.HIGH RISK: Target INR is 2.5-3.5 for patients with mechanical heart valves.HGB/HCT (H&H) - STAT [id number] 12:28:06 Test Item Value Reference Range Interpretation Comments HEMOGLOBIN (BEAKER) (test code = 9.3 GM/DL 12.0-15.0 L 410) HEMATOCRIT (BEAKER) (test code = 27.0 % 36.0-45.0 L 411) SODIUM NA-STAT [id number] 12:28:05 Test Item Value Reference Range Interpretation Comments SODIUM (BEAKER) (test code = 381) 133 meq/L 136-145 L GLUCOSE-STAT [id number] 12:28:05 Test Item Value Reference Range Interpretation Comments GLUCOSE RANDOM (BEAKER) (test code 189 mg/dL 70-110 H = 652) BLOOD GAS, [id number] 12:28:04 Test Item Value Reference Range Interpretation Comments PH ARTERIAL (BEAKER) (test code = 7.45 7.35-7.45 383) PCO2 ARTERIAL (BEAKER) (test code 35 mm Hg 35-45 = 384) PO2 ARTERIAL (BEAKER) (test code 275 mm Hg 80-90 H = 385) O2 SATURATION ARTERIAL (BEAKER) 99.7 % 96.0-97.0 H (test code = 386) HCO3 ARTERIAL (BEAKER) (test code 24 mmol/L 21-29 = 388) BASE EXCESS ARTERIAL (BEAKER) -0.1 mmol/L -2.0-3.0 (test code = 387) PATIENT TEMPERATURE (BEAKER) 35.5 (test code = 1818) FIO2 (BEAKER) (test code = 1819) 75.0 POTASSIUM-STAT [id number] 12:27:48 Test Item Value Reference Range Interpretation Comments POTASSIUM (BEAKER) (test code = 5.5 meq/L 3.6-5.5 379) BLOOD GAS, [id number] 11:48:59 Test Item Value Reference Range Interpretation Comments PH ARTERIAL (BEAKER) (test code = 7.41 7.35-7.45 383) PCO2 ARTERIAL (BEAKER) (test code 40 mm Hg 35-45 = 384) PO2 ARTERIAL (BEAKER) (test code 266 mm Hg 80-90 H = 385) O2 SATURATION ARTERIAL (BEAKER) 99.6 % 96.0-97.0 H (test code = 386) HCO3 ARTERIAL (BEAKER) (test code 25 mmol/L 21-29 = 388) BASE EXCESS ARTERIAL (BEAKER) -0.3 mmol/L -2.0-3.0 (test code = 387) PATIENT TEMPERATURE (BEAKER) 34.5 (test code = 1818) FIO2 (BEAKER) (test code = 1819) 70.0 GLUCOSE-STAT [id number] 11:47:10 Test Item Value Reference Range Interpretation Comments GLUCOSE RANDOM (BEAKER) (test code 186 mg/dL 70-110 H = 652) HGB/HCT (H&H) - STAT [id number] 11:47:10 Test Item Value Reference Range Interpretation Comments HEMOGLOBIN (BEAKER) (test code = 8.9 GM/DL 12.0-15.0 L 410) HEMATOCRIT (BEAKER) (test code = 26.0 % 36.0-45.0 L 411) SODIUM NA-STAT [id number] 11:47:09 Test Item Value Reference Range Interpretation Comments SODIUM (BEAKER) (test code = 381) 133 meq/L 136-145 L POTASSIUM-STAT [id number] 11:46:29 Test Item Value Reference Range Interpretation Comments POTASSIUM (BEAKER) (test code = 5.3 meq/L 3.6-5.5 379) HGB/HCT (H&H) - STAT [id number] 11:17:46 Test Item Value Reference Range Interpretation Comments HEMOGLOBIN (BEAKER) (test code = 9.6 GM/DL 12.0-15.0 L 410) HEMATOCRIT (BEAKER) (test code = 28.0 % 36.0-45.0 L 411) SODIUM NA-STAT [id number] 11:17:45 Test Item Value Reference Range Interpretation Comments SODIUM (BEAKER) (test code = 381) 133 meq/L 136-145 L BLOOD GAS, [id number] 11:17:39 Test Item Value Reference Range Interpretation Comments PH ARTERIAL (BEAKER) (test code = 7.50 7.35-7.45 H 383) PCO2 ARTERIAL (BEAKER) (test code 30 mm Hg 35-45 L = 384) PO2 ARTERIAL (BEAKER) (test code 294 mm Hg 80-90 H = 385) O2 SATURATION ARTERIAL (BEAKER) 99.7 % 96.0-97.0 H (test code = 386) HCO3 ARTERIAL (BEAKER) (test code 24 mmol/L 21-29 = 388) BASE EXCESS ARTERIAL (BEAKER) -0.4 mmol/L -2.0-3.0 (test code = 387) PATIENT TEMPERATURE (BEAKER) 32.9 (test code = 1818) FIO2 (BEAKER) (test code = 1819) 70.0 GLUCOSE-STAT [id number] 11:17:39 Test Item Value Reference Range Interpretation Comments GLUCOSE RANDOM (BEAKER) (test code 171 mg/dL 70-110 H = 652) POTASSIUM-STAT [id number] 11:17:36 Test Item Value Reference Range Interpretation Comments POTASSIUM (BEAKER) (test code = 5.1 meq/L 3.6-5.5 379) HGB/HCT (H&H) - STAT [id number] 10:50:26 Test Item Value Reference Range Interpretation Comments HEMOGLOBIN (BEAKER) (test code = 8.4 GM/DL 12.0-15.0 L 410) HEMATOCRIT (BEAKER) (test code = 25.0 % 36.0-45.0 L 411) SODIUM NA-STAT [id number] 10:50:25 Test Item Value Reference Range Interpretation Comments SODIUM (BEAKER) (test code = 381) 133 meq/L 136-145 L GLUCOSE-STAT [id number] 10:50:25 Test Item Value Reference Range Interpretation Comments GLUCOSE RANDOM (BEAKER) (test code 134 mg/dL 70-110 H = 652) BLOOD GAS, [id number] 10:50:24 Test Item Value Reference Range Interpretation Comments PH ARTERIAL (BEAKER) (test code = 7.48 7.35-7.45 H 383) PCO2 ARTERIAL (BEAKER) (test code 31 mm Hg 35-45 L = 384) PO2 ARTERIAL (BEAKER) (test code 449 mm Hg 80-90 H = 385) O2 SATURATION ARTERIAL (BEAKER) 99.9 % 96.0-97.0 H (test code = 386) HCO3 ARTERIAL (BEAKER) (test code 23 mmol/L 21-29 = 388) BASE EXCESS ARTERIAL (BEAKER) -1.1 mmol/L -2.0-3.0 (test code = 387) PATIENT TEMPERATURE (BEAKER) 33.0 (test code = 1818) FIO2 (BEAKER) (test code = 1819) 100.0 POTASSIUM-STAT [id number] 10:49:45 Test Item Value Reference Range Interpretation Comments POTASSIUM (BEAKER) (test code = 3.8 meq/L 3.6-5.5 379) Hemoglobin [id number] 09:30:26 Test Item Value Reference Range Interpretation Comments Hemoglobin A1C (test 6.9 % See_Comment H [Autom ated code = 4549-2) message] The system which generated this result transmitted reference range : <=5.6%. The reference range was not used to interpret this result as normal/abnormal . BRANDI (test code = BRANDI) "The A1c is measured using a NGSP-certified method. HbA1c value equal to or greater than 6.5% as the diagnosis cutoff for diabetes. An HbA1c value of 5.7-6.4% indicates increased risk for diabetes (prediabetes)."O perator ID - ADM Lab Interpretation Abnormal (test code = 94560-2) [facility] [id number] 09:30:26 Test Item Value Reference Range Interpretation Comments Hemoglobin A1C (test 6.9 % See_Comment H [Autom ated code = 4549-2) message] The system which generated this result transmitted reference range : <=5.6%. The reference range was not used to interpret this result as normal/abnormal . BRANDI (test code = BRANDI) "The A1c is measured using a NGSP-certified method. HbA1c value equal to or greater than 6.5% as the diagnosis cutoff for diabetes. An HbA1c value of 5.7-6.4% indicates increased risk for diabetes (prediabetes)."O perator ID - ADM Lab Interpretation Abnormal (test code = 42790-4) [facility] [id number] 09:30:26 Test Item Value Reference Range Interpretation Comments Hemoglobin A1C (test 6.9 % See_Comment H [Autom ated code = 4549-2) message] The system which generated this result transmitted reference range : <=5.6%. The reference range was not used to interpret this result as normal/abnormal . BRANDI (test code = BRANDI) "The A1c is measured using a NGSP-certified method. HbA1c value equal to or greater than 6.5% as the diagnosis cutoff for diabetes. An HbA1c value of 5.7-6.4% indicates increased risk for diabetes (prediabetes)."O perator ID - ADM Lab Interpretation Abnormal (test code = 81916-8) [facility] [id number] 09:30:26 Test Item Value Reference Range Interpretation Comments Hemoglobin A1C (test 6.9 % See_Comment H [Autom ated code = 4549-2) message] The system which generated this result transmitted reference range : <=5.6%. The reference range was not used to interpret this result as normal/abnormal . BRANDI (test code = BRANDI) "The A1c is measured using a NGSP-certified method. HbA1c value equal to or greater than 6.5% as the diagnosis cutoff for diabetes. An HbA1c value of 5.7-6.4% indicates increased risk for diabetes (prediabetes)."O perator ID - ADM Lab Interpretation Abnormal (test code = 29961-6) [facility] [id number] 09:30:26 Test Item Value Reference Range Interpretation Comments Hemoglobin A1C (test 6.9 % See_Comment H [Autom ated code = 4549-2) message] The system which generated this result transmitted reference range : <=5.6%. The reference range was not used to interpret this result as normal/abnormal . BRANDI (test code = BRANDI) "The A1c is measured using a NGSP-certified method. HbA1c value equal to or greater than 6.5% as the diagnosis cutoff for diabetes. An HbA1c value of 5.7-6.4% indicates increased risk for diabetes (prediabetes)."O perator ID - ADM Lab Interpretation Abnormal (test code = 77874-8) [facility] [id number] 09:30:26 Test Item Value Reference Range Interpretation Comments Hemoglobin A1C (test 6.9 % See_Comment H [Autom ated code = 4549-2) message] The system which generated this result transmitted reference range : <=5.6%. The reference range was not used to interpret this result as normal/abnormal . BRANDI (test code = BRANDI) "The A1c is measured using a NGSP-certified method. HbA1c value equal to or greater than 6.5% as the diagnosis cutoff for diabetes. An HbA1c value of 5.7-6.4% indicates increased risk for diabetes (prediabetes)."O perator ID - ADM Lab Interpretation Abnormal (test code = 94250-7) [facility] [id number] 09:30:26 Test Item Value Reference Range Interpretation Comments Hemoglobin A1C (test 6.9 % See_Comment H [Autom ated code = 4549-2) message] The system which generated this result transmitted reference range : <=5.6%. The reference range was not used to interpret this result as normal/abnormal . BRANDI (test code = BRANDI) "The A1c is measured using a NGSP-certified method. HbA1c value equal to or greater than 6.5% as the diagnosis cutoff for diabetes. An HbA1c value of 5.7-6.4% indicates increased risk for diabetes (prediabetes)."O perator ID - ADM Lab Interpretation Abnormal (test code = 46327-9) [facility] [id number] 09:30:26 Test Item Value Reference Range Interpretation Comments Hemoglobin A1C (test 6.9 % See_Comment H [Autom ated code = 4549-2) message] The system which generated this result transmitted reference range : <=5.6%. The reference range was not used to interpret this result as normal/abnormal . BRANDI (test code = BRANDI) "The A1c is measured using a NGSP-certified method. HbA1c value equal to or greater than 6.5% as the diagnosis cutoff for diabetes. An HbA1c value of 5.7-6.4% indicates increased risk for diabetes (prediabetes)."O perator ID - ADM Lab Interpretation Abnormal (test code = 39336-1) [facility] [id number] 09:30:26 Test Item Value Reference Range Interpretation Comments Hemoglobin A1C (test 6.9 % See_Comment H [Autom ated code = 4549-2) message] The system which generated this result transmitted reference range : <=5.6%. The reference range was not used to interpret this result as normal/abnormal . BRANDI (test code = BRANDI) "The A1c is measured using a NGSP-certified method. HbA1c value equal to or greater than 6.5% as the diagnosis cutoff for diabetes. An HbA1c value of 5.7-6.4% indicates increased risk for diabetes (prediabetes)."O perator ID - ADM Lab Interpretation Abnormal (test code = 27578-3) [facility] [id number] 09:30:26 Test Item Value Reference Range Interpretation Comments Hemoglobin A1C (test 6.9 % See_Comment H [Autom ated code = 4549-2) message] The system which generated this result transmitted reference range : <=5.6%. The reference range was not used to interpret this result as normal/abnormal . BRANDI (test code = BRANDI) "The A1c is measured using a NGSP-certified method. HbA1c value equal to or greater than 6.5% as the diagnosis cutoff for diabetes. An HbA1c value of 5.7-6.4% indicates increased risk for diabetes (prediabetes)."O perator ID - ADM Lab Interpretation Abnormal (test code = 31425-4) [facility]MO[facility]IN [id number] 09:30:26 Test Item Value Reference Range Interpretation Comments HEMOGLOBIN A1C 6.9 % See_Comment H [Automated m essage] ELECTROPHORESIS (BEAKER) The system which (test code = 3811) generated this result transmitted ref erence range: <=5.6%. The reference range was not used to int erpret this result as normal/abnormal . "The A1c is measured using a NGSP-certified method. HbA1c value equal to or greater than 6.5% as thediagnosis cutoff for diabetes. An HbA1c value of 5.7- 6.4% indicates increased risk for diabetes (prediabetes)."[employer] ID - ADM HGB/HCT (H&H) - STAT [id number] 09:13:03 Test Item Value Reference Range Interpretation Comments HEMOGLOBIN (BEAKER) (test code = 9.0 GM/DL 12.0-15.0 L 410) HEMATOCRIT (BEAKER) (test code = 26.0 % 36.0-45.0 L 411) SODIUM NA-STAT [id number] 09:13:02 Test Item Value Reference Range Interpretation Comments SODIUM (BEAKER) (test code = 381) 134 meq/L 136-145 L GLUCOSE-STAT [id number] 09:13:02 Test Item Value Reference Range Interpretation Comments GLUCOSE RANDOM (BEAKER) (test code 112 mg/dL 70-110 H = 652) BLOOD GAS, [id number] 09:13:01 Test Item Value Reference Range Interpretation Comments PH ARTERIAL (BEAKER) (test code = 7.48 7.35-7.45 H 383) PCO2 ARTERIAL (BEAKER) (test code 34 mm Hg 35-45 L = 384) PO2 ARTERIAL (BEAKER) (test code = 164 mm Hg 80-90 H 385) O2 SATURATION ARTERIAL (BEAKER) 99.3 % 96.0-97.0 H (test code = 386) HCO3 ARTERIAL (BEAKER) (test code 25 mmol/L 21-29 = 388) BASE EXCESS ARTERIAL (BEAKER) 1.1 mmol/L -2.0-3.0 (test code = 387) PATIENT TEMPERATURE (BEAKER) (test 35.7 code = 1818) FIO2 (BEAKER) (test code = 1819) 100.0 CALCIUM, [id number] 09:13:00 Test Item Value Reference Range Interpretation Comments CALCIUM IONIZED (BEAKER) (test 1.09 mmol/L 1.12-1.27 L code = 698) PH, BLOOD (BEAKER) (test code = 7.46 1810) POTASSIUM-STAT [id number] 09:12:15 Test Item Value Reference Range Interpretation Comments POTASSIUM (BEAKER) (test code = 3.7 meq/L 3.6-5.5 379) BASIC METABOLIC [id number] 07:11:03 Test Item Value Reference Range Interpretation Comments SODIUM (BEAKER) 134 meq/L 136-145 L (test code = 381) POTASSIUM (BEAKER) 4.2 meq/L 3.5-5.1 (test code = 379) CHLORIDE (BEAKER) 100 meq/L 98-107 (test code = 382) CO2 (BEAKER) (test 26 meq/L 22-29 code = 355) BLOOD UREA NITROGEN 22 mg/dL 7-21 H (BEAKER) (test code = 354) CREATININE (BEAKER) 4.95 mg/dL 0.57-1.25 H (test code = 358) GLUCOSE RANDOM 102 mg/dL 70-105 (BEAKER) (test code = 652) CALCIUM (BEAKER) 8.2 mg/dL 8.4-10.2 L (test code = 697) EGFR (BEAKER) (test 9 mL/min/1.73 ESTIMAT ED GFR IS code = 1092) sq m NOT ACCURATE CREATININE CLEARANCE IN PREDICTING GLOMERULAR FILTRATION RATE . ESTIMATED GFR I S NOT APPLICABLE FOR DIALYSIS PATIEN TS. [employer] ID - HIEN [id number] 06:29:42 Test Item Value Reference Range Interpretation Comments PHOSPHORUS (BEAKER) (test code = 4.7 mg/dL 2.3-4.7 604) [employer] ID - HIEN [id number] 06:29:41 Test Item Value Reference Range Interpretation Comments MAGNESIUM (BEAKER) (test code = 2.0 mg/dL 1.6-2.6 627) [employer] ID - HIEN [facility]BC W/PLT COUNT & AUTO [id number] 06:04:09 Test Item Value Reference Range Interpretation Comments WHITE BLOOD CELL COUNT (BEAKER) 6.7 K/ L 3.5-10.5 (test code = 775) RED BLOOD CELL COUNT (BEAKER) 2.70 M/ L 3.93-5.22 L (test code = 761) HEMOGLOBIN (BEAKER) (test code = 8.2 GM/DL 11.2-15.7 L 410) HEMATOCRIT (BEAKER) (test code = 25.2 % 34.1-44.9 L 411) MEAN CORPUSCULAR VOLUME (BEAKER) 95.6 fL 79.4-94.8 H (test code = 753) MEAN CORPUSCULAR HEMOGLOBIN 30.4 pg 25.6-32.2 (BEAKER) (test code = 751) MEAN CORPUSCULAR HEMOGLOBIN CONC 31.8 GM/DL 32.2-35.5 L (BEAKER) (test code = 752) RED CELL DISTRIBUTION WIDTH 18.4 % 11.7-14.4 H (BEAKER) (test code = 412) PLATELET COUNT (BEAKER) (test code 67 K/CU MM 150-450 L = 756) MEAN PLATELET VOLUME (BEAKER) 11.4 fL 9.4-12.3 (test code = 754) NUCLEATED RED BLOOD CELLS (BEAKER) 0 /100 WBC 0-0 (test code = 413) NEUTROPHILS RELATIVE PERCENT 72 % (BEAKER) (test code = 429) LYMPHOCYTES RELATIVE PERCENT 13 % (BEAKER) (test code = 430) MONOCYTES RELATIVE PERCENT 13 % (BEAKER) (test code = 431) EOSINOPHILS RELATIVE PERCENT 1 % (BEAKER) (test code = 432) BASOPHILS RELATIVE PERCENT 1 % (BEAKER) (test code = 437) NEUTROPHILS ABSOLUTE COUNT 4.81 K/ L 1.56-6.13 (BEAKER) (test code = 670) LYMPHOCYTES ABSOLUTE COUNT 0.88 K/ L 1.18-3.74 L (BEAKER) (test code = 414) MONOCYTES ABSOLUTE COUNT (BEAKER) 0.88 K/ L 0.24-0.36 H (test code = 415) EOSINOPHILS ABSOLUTE COUNT 0.07 K/ L 0.04-0.36 (BEAKER) (test code = 416) BASOPHILS ABSOLUTE COUNT (BEAKER) 0.04 K/ L 0.01-0.08 (test code = 417) IMMATURE GRANULOCYTES-RELATIVE 0 % 0-1 PERCENT (BEAKER) (test code = 2801) RAD, ABDOMEN/KUB, 1 VIEW [id number] 02:55:00Reason for exam:->abdominal painGOLETA VALLEY COTTAGE [facility]ITALName: [facility] MON[facility]YA : 1955 Sex: FFINAL REPORT CLINICAL HISTORY: abdominal pain COMPARISON: None. FI NDINGS: Two supine images of the abdomen are submitted. The abdominal bowel gas pattern is nonspecific but largely gasless. Dilated, fluid-filled bowel loops could be present. Evaluation with CT of theabdomen and pelvis can be obtained, if indicated. Enteric contrast overlies the left colon and rectum. Atherosclerotic calcifications are present in the abdomen and pelvis. There is no acute bony abnormality. Signed: Braxton Quintero MDReport Verified Date/Time: 06/18/2021 02:55:15 Electronicallysigned by: BRAXTON QUINTERO M.D. on 06/18/2021 02:55 AMPOCT-GLUCOSE [id number] 21:39:12 Test Item Value Reference Range Interpretation Comments POC-GLUCOSE METER 135 mg/dL 70-110 H : TESTED A T [facility] 6720 (BEAKER) (test code = YUDY [place] [facility], 1538) [address]: [employer]/Techni kelle ID = [id number] for Eliezer Jerome HEMOGLOBIN AND [id number] 21:31:20 Test Item Value Reference Range Interpretation Comments HEMOGLOBIN (BEAKER) (test code = 6.9 GM/DL 11.2-15.7 L 410) HEMATOCRIT (BEAKER) (test code = 21.8 % 34.1-44.9 L 411) [employer] ID - [id number] ID - [id number], [id number] 18:33:00Unlisted Reason for Exam - Click Yes and Enter Reason Below->NoIs this for enterography?->NoPlease specify:->Renal Stone Protocolalso look for spleen if there is any infarct causing left flankpainWill this procedure require oral contrast?->NoGOLETA VALLEY COTTAGE [facility]OSPITALName: JAK MERRILL : 1955 Sex: FFINAL REPORT EXAM: CT Abdomen and Pelvis WITHOUT intravenous contrast INDICATION: Flank pain, kidney stone suspected. COMPARISON: CT chest 06/15/2021. TECHNIQUE: Abdomen and pelvis were scanned utilizing a multidetector helical scanner from the lung base to the pubicsymphysis without administration of IV contrast. Coronal and sagittal reformations were obtained. Routine technique was performed. Dose modulation, iterative reconstruction, and/or weight-based adjustment of the mA/kV was utilized to reduce the radiation dose to as low as reasonably achievable. IVCONTRAST: NoneORAL CONTRAST: Water COMPLICATIONS: None RADIATION DOSE:Total DLP: 393 mGy*cmDose modulation, iterative reconstruction, and/or weight based adjustment of the mA/kV was utilized to reduce the radiation dose to as low as reasonably achievable. FINDINGS:LOWER THORAX: Moderate right effusion with right lower lobe airspace opacity displaying air bronchograms. Left base displays interstitial thickening, compressive atelectasis and perivascular groundglass opacities. Cardiomegaly. Pacer leads terminating within the right atrium and right ventricle. HEPATOBILIARY: Diffusely densehepatic parenchyma. No focal hepatic lesions. Hepatomegaly to 19.7 cm. No biliary ductal dilatation.Cholelithiasis without evidence of cholecystitis. Excreted contrast layering within the gallbladder. SPLEEN: Splenomegaly to 15 cm. PANCREAS: Largely atrophic. No evidence of ductal dilatation. ADRENALS: 1.4 cm left adrenal nodule, average Hounsfield unit 61.KIDNEYS/URETERS: Atrophic bilaterally. No hydronephrosis or stones. 1 cm left upper pole dense lesion. 6 mm right mid pole exophytic dense lesion best appreciated on axial image 69. 1.6 cm right upper pole simple cyst. 8 mm right upper pole indeterminate hypodensity. Multiple bilateral hypodensities too small to further characterize.PELVIC ORGANS/BLADDER: The bladder is collapsed containing excreted contrast. 1.4 cm hypodensity within the lower body of the uterus. PERITONEUM / RETROPERITONEUM: Trace perihepatic ascites. No free air.LYMPH NODES: No lymphadenopathy.VESSELS: Significant aortoiliac atherosclerosis with extension of the visceral branches, most advanced within the infrarenal aorta. GI TRACT: No distention or wall thickening. Contrast is seen throughout the colon and rectum. The appendix is seen, normal. BONES AND SOFT TISSUES: Osteopenia. Degenerative changes seen of the visualized osseous structures. Superficial soft tissues display interstitial edema. IMPRESSION: 1.Moderate right effusion with right lower lobe airspace opacity displaying air bronchograms, may represent pneumonia/pneumonitis with component of atelectasis.2.Cardiomegaly with left base interstitial thickening with perivascular groundglass airspace opacities, interstitial edema.3.Trace perihepatic ascites with superficial soft tissue displaying interstitial ed fabio.4.Diffusely dense hepatic parenchyma, likely due to deposition disease and/or medication toxicity (amiodarone).5.Hepatomegaly and splenomegaly.6.1.4 cm left adrenal nodule, too dense for adenoma. Recommend adrenal protocol CT or MRI for further evaluation.7.Kidneys are atrophic bilaterally with multiple dense and indeterminate lesions as described above. Recommend renal protocol CT or MRI for further evaluation.8.1.4 cm hypodensity within the lower body of the uterus, recommend pelvic ultrasoundfor further evaluation. Signed: Kb Gregorio MDReport Verified Date/Time: 06/17/2021 18:33:28 Reading Location: [address] Transitional Reading Room Comprehensive metabolic [id number] 16:18:22 Test Item Value Reference Range Interpretation Comments Protein, Total (test 7.0 See_Comment [Autom ated code = 2885-2) message] The system which generated this result transmit levi reference range : 6.0 - 8.3 gm/dL . The reference range was not u sed to interpret th is result as normal/abnormal . Albumin (test code = 2.7 g/dL 3.5-5.0 L 12176-0) Alkaline Phosphatase 99 U/L 40-150 (test code = 6768-6) Total Bilirubin (test 0.4 mg/dL 0.2-1.2 code = 1975-2) Sodium (test code = 135 meq/L 136-145 L 2951-2) Potassium (test code 3.7 meq/L 3.5-5.1 = 2823-3) Chloride (test code = 100 meq/L 98-107 5-0) CO2 (test code = 29 meq/L 22-29 2027-) BUN (test code = 17 mg/dL 7-21 3094-0) Creatinine (test code 4.22 mg/dL 0.57-1.25 H = 2160-0) Glucose (test code = 109 mg/dL 70-105 H 2345-7) Calcium (test code = 8.4 mg/dL 8.4-10.2 75510-7) AST (test code = 17 U/L 1919-8) ALT (test code = 10 U/L 1741-6) EGFR (test code = 11 mL/min/1.[place] [address]-6) NOT ACCURATE CREATININE CLEARANCE IN PREDICTING GLOMERULAR FILTRATION RATE . ESTIMATED GFR I S NOT APPLICABLE FOR DIALYSIS PATIEN TS. BRANDI (test code = BRANDI) [employer] ID - BS Lab Interpretation Abnormal (test code = 90059-5) [facility] [id number] 16:18:22 Test Item Value Reference Range Interpretation Comments Protein, Total (test 7.0 See_Comment [Autom ated code = 2885-2) message] The system which generated this result transmit levi reference range : 6.0 - 8.3 gm/dL . The reference range was not u sed to interpret th is result as normal/abnormal . Albumin (test code = 2.7 g/dL 3.5-5.0 L 17975-9) Alkaline Phosphatase 99 U/L 40-150 (test code = 6768-6) Total Bilirubin (test 0.4 mg/dL 0.2-1.2 code = 1974-2) Sodium (test code = 135 meq/L 136-145 L 2951-2) Potassium (test code 3.7 meq/L 3.5-5.1 = 2823-3) Chloride (test code = 100 meq/L 98-107 5-0) CO2 (test code = 29 meq/L 22-29 2027-9) BUN (test code = 17 mg/dL 7- 3094-0) Creatinine (test code 4.22 mg/dL 0.57-1.25 H = 2160-0) Glucose (test code = 109 mg/dL 70-105 H 2345-7) Calcium (test code = 8.4 mg/dL 8.4-10.2 07645-5) AST (test code = 17 U/L 1919-8) ALT (test code = 10 U/L 1741-6) EGFR (test code = 11 mL/min/1.[place] [address]-9) NOT ACCURATE CREATININE CLEARANCE IN PREDICTING GLOMERULAR FILTRATION RATE . ESTIMATED GFR I S NOT APPLICABLE FOR DIALYSIS PATIEN TS. BRANDI (test code = BRANDI) [employer] ID - BS Lab Interpretation Abnormal (test code = 32990-3) [facility] [id number] 16:18:22 Test Item Value Reference Range Interpretation Comments Protein, Total (test 7.0 See_Comment [Autom ated code = 2885-2) message] The system which generated this result transmit levi reference range : 6.0 - 8.3 gm/dL . The reference range was not u sed to interpret th is result as normal/abnormal . Albumin (test code = 2.7 g/dL 3.5-5.0 L 18666-8) Alkaline Phosphatase 99 U/L 40-150 (test code = 6768-6) Total Bilirubin (test 0.4 mg/dL 0.2-1.2 code = 1975-2) Sodium (test code = 135 meq/L 136-145 L 2951-2) Potassium (test code 3.7 meq/L 3.5-5.1 = 2823-3) Chloride (test code = 100 meq/L 98-107 2075-0) CO2 (test code = 29 meq/L 22-29 2028-9) BUN (test code = 17 mg/dL 7-21 3094-0) Creatinine (test code 4.22 mg/dL 0.57-1.25 H = 2160-0) Glucose (test code = 109 mg/dL 70-105 H 2345-7) Calcium (test code = 8.4 mg/dL 8.4-10.2 55974-8) AST (test code = 17 U/L 5-34 1920-8) ALT (test code = 10 U/L 6-55 1742-6) EGFR (test code = 11 mL/min/1.73 [place] [address]-5) NOT ACCURATE CREATININE CLEARANCE IN PREDICTING GLOMERULAR FILTRATION RATE . ESTIMATED GFR I S NOT APPLICABLE FOR DIALYSIS PATIEN TS. BRANDI (test code = BRANDI) [employer] ID - BS Lab Interpretation Abnormal (test code = 35942-8) [facility] [id number] 16:18:22 Test Item Value Reference Range Interpretation Comments Protein, Total (test 7.0 See_Comment [Autom ated code = 2885-2) message] The system which generated this result transmit levi reference range : 6.0 - 8.3 gm/dL . The reference range was not u sed to interpret th is result as normal/abnormal . Albumin (test code = 2.7 g/dL 3.5-5.0 L 31206-4) Alkaline Phosphatase 99 U/L 40-150 (test code = 6768-6) Total Bilirubin (test 0.4 mg/dL 0.2-1.2 code = 1975-2) Sodium (test code = 135 meq/L 136-145 L 2951-2) Potassium (test code 3.7 meq/L 3.5-5.1 = 2823-3) Chloride (test code = 100 meq/L 98-107 2075-0) CO2 (test code = 29 meq/L 22-29 2028-9) BUN (test code = 17 mg/dL 7-21 3094-0) Creatinine (test code 4.22 mg/dL 0.57-1.25 H = 2160-0) Glucose (test code = 109 mg/dL 70-105 H 2345-7) Calcium (test code = 8.4 mg/dL 8.4-10.2 42851-6) AST (test code = 17 U/L 5-34 1920-8) ALT (test code = 10 U/L 6-55 1742-6) EGFR (test code = 11 mL/min/1.73 sq m [facility] [place] [address]-7) NOT ACCURATE CREATININE CLEARANCE IN PREDICTING GLOMERULAR FILTRATION RATE . ESTIMATED GFR I S NOT APPLICABLE FOR DIALYSIS PATIEN TSEsvin BRANDI (test code = BRANDI) [employer] ID - BS Lab Interpretation Abnormal (test code = 67845-3) [facility] [id number] 16:18:22 Test Item Value Reference Range Interpretation Comments Protein, Total (test 7.0 See_Comment [Autom ated code = 2885-2) message] The system which generated this result transmit levi reference range : 6.0 - 8.3 gm/dL . The reference range was not u sed to interpret th is result as normal/abnormal . Albumin (test code = 2.7 g/dL 3.5-5.0 L 51632-3) Alkaline Phosphatase 99 U/L 40-150 (test code = 6768-6) Total Bilirubin (test 0.4 mg/dL 0.2-1.2 code = 1974-) Sodium (test code = 135 meq/L 136-145 L 2951-2) Potassium (test code 3.7 meq/L 3.5-5.1 = 2823-3) Chloride (test code = 100 meq/L 98-107 2075-0) CO2 (test code = 29 meq/L 22-29 2027-9) BUN (test code = 17 mg/dL 7-21 3094-0) Creatinine (test code 4.22 mg/dL 0.57-1.25 H = 2160-0) Glucose (test code = 109 mg/dL 70-105 H 2345-7) Calcium (test code = 8.4 mg/dL 8.4-10.2 81841-7) AST (test code = 17 U/L 5-34 1920-8) ALT (test code = 10 U/L 6-55 1742-6) EGFR (test code = 11 mL/min/1.[place] [address]-8) NOT ACCURATE CREATININE CLEARANCE IN PREDICTING GLOMERULAR FILTRATION RATE . ESTIMATED GFR I S NOT APPLICABLE FOR DIALYSIS PATIEN BRANDI (test code = BRANDI) [employer] ID - BS Lab Interpretation Abnormal (test code = 29959-0) [facility] [id number] 16:18:22 Test Item Value Reference Range Interpretation Comments Protein, Total (test 7.0 See_Comment [Autom ated code = 2885-2) message] The system which generated this result transmit levi reference range : 6.0 - 8.3 gm/dL . The reference range was not u sed to interpret th is result as normal/abnormal . Albumin (test code = 2.7 g/dL 3.5-5.0 L 15481-0) Alkaline Phosphatase 99 U/L 40-150 (test code = 6768-6) Total Bilirubin (test 0.4 mg/dL 0.2-1.2 code = 1974-) Sodium (test code = 135 meq/L 136-145 L 2951-2) Potassium (test code 3.7 meq/L 3.5-5.1 = 2823-3) Chloride (test code = 100 meq/L 98-107 5-0) CO2 (test code = 29 meq/L 2027-12) BUN (test code = 17 mg/dL 10-22 3094-0) Creatinine (test code 4.22 mg/dL 0.57-1.25 H = 2160-0) Glucose (test code = 109 mg/dL 70-105 H 2345-7) Calcium (test code = 8.4 mg/dL 8.4-10.2 63992-4) AST (test code = 17 U/L 5-34 1920-8) ALT (test code = 10 U/L 6-55 174-6) EGFR (test code = 11 mL/min/1.[place] [address]-3) NOT ACCURATE CREATININE CLEARANCE IN PREDICTING GLOMERULAR FILTRATION RATE . ESTIMATED GFR I S NOT APPLICABLE FOR DIALYSIS PATIEN TS. BRANDI (test code = BRANDI) [employer] ID - BS Lab Interpretation Abnormal (test code = 74167-3) [facility] [id number] 16:18:22 Test Item Value Reference Range Interpretation Comments Protein, Total (test 7.0 See_Comment [Autom ated code = 2885-2) message] The system which generated this result transmit levi reference range : 6.0 - 8.3 gm/dL . The reference range was not u sed to interpret th is result as normal/abnormal . Albumin (test code = 2.7 g/dL 3.5-5.0 L 50752-8) Alkaline Phosphatase 99 U/L 40-150 (test code = 6768-6) Total Bilirubin (test 0.4 mg/dL 0.2-1.2 code = 1974-2) Sodium (test code = 135 meq/L 136-145 L 2951-2) Potassium (test code 3.7 meq/L 3.5-5.1 = 2823-3) Chloride (test code = 100 meq/L 98-107 5-0) CO2 (test code = 29 meq/L 2027-12) BUN (test code = 17 mg/dL 7-21 3094-0) Creatinine (test code 4.22 mg/dL 0.57-1.25 H = 2160-0) Glucose (test code = 109 mg/dL 70-105 H 2345-7) Calcium (test code = 8.4 mg/dL 8.4-10.2 89249-1) AST (test code = 17 U/L 34 0-8) ALT (test code = 10 U/L 6-55 2-6) EGFR (test code = 11 mL/min/1.73 [place] [address]-8) NOT ACCURATE CREATININE CLEARANCE IN PREDICTING GLOMERULAR FILTRATION RATE . ESTIMATED GFR I S NOT APPLICABLE FOR DIALYSIS PATIEN TS. BRANDI (test code = BRANDI) [employer] ID - BS Lab Interpretation Abnormal (test code = 86408-9) [facility] [id number] 16:18:22 Test Item Value Reference Range Interpretation Comments Protein, Total (test 7.0 See_Comment [Autom ated code = 2885-2) message] The system which generated this result transmit levi reference range : 6.0 - 8.3 gm/dL . The reference range was not u sed to interpret th is result as normal/abnormal . Albumin (test code = 2.7 g/dL 3.5-5.0 L 38048-2) Alkaline Phosphatase 99 U/L 40-150 (test code = 6768-6) Total Bilirubin (test 0.4 mg/dL 0.2-1.2 code = 1974-2) Sodium (test code = 135 meq/L 136-145 L 2951-2) Potassium (test code 3.7 meq/L 3.5-5.1 = 2823-3) Chloride (test code = 100 meq/L 98-107 2074-0) CO2 (test code = 29 meq/L 22-29 2027-9) BUN (test code = 17 mg/dL 10-22-0) Creatinine (test code 4.22 mg/dL 0.57-1.25 H = 2160-0) Glucose (test code = 109 mg/dL 70-105 H 2345-7) Calcium (test code = 8.4 mg/dL 8.4-10.2 92950-2) AST (test code = 17 U/L 1919-8) ALT (test code = 10 U/L 1742-6) EGFR (test code = 11 mL/min/1.[place] [address]-7) NOT ACCURATE CREATININE CLEARANCE IN PREDICTING GLOMERULAR FILTRATION RATE . ESTIMATED GFR I S NOT APPLICABLE FOR DIALYSIS PATIEN TSEsvin BRANDI (test code = BRANDI) [employer] ID - BS Lab Interpretation Abnormal (test code = 80682-3) [facility] [id number] 16:18:22 Test Item Value Reference Range Interpretation Comments Protein, Total (test 7.0 See_Comment [Autom ated code = 2885-2) message] The system which generated this result transmit levi reference range : 6.0 - 8.3 gm/dL . The reference range was not u sed to interpret th is result as normal/abnormal . Albumin (test code = 2.7 g/dL 3.5-5.0 L 39062-6) Alkaline Phosphatase 99 U/L 40-150 (test code = 6768-6) Total Bilirubin (test 0.4 mg/dL 0.2-1.2 code = 1975-2) Sodium (test code = 135 meq/L 136-145 L 2951-2) Potassium (test code 3.7 meq/L 3.5-5.1 = 2823-3) Chloride (test code = 100 meq/L 98-107 2075-0) CO2 (test code = 29 meq/L 22-29 8-9) BUN (test code = 17 mg/dL 7-21 3094-0) Creatinine (test code 4.22 mg/dL 0.57-1.25 H = 2160-0) Glucose (test code = 109 mg/dL 70-105 H 2345-7) Calcium (test code = 8.4 mg/dL 8.4-10.2 70631-8) AST (test code = 17 U/L 1919-8) ALT (test code = 10 U/L 2-6) EGFR (test code = 11 mL/min/1.[place] [address]-4) NOT ACCURATE CREATININE CLEARANCE IN PREDICTING GLOMERULAR FILTRATION RATE . ESTIMATED GFR I S NOT APPLICABLE FOR DIALYSIS PATIEN TS. BRANDI (test code = BRANDI) [employer] ID - BS Lab Interpretation Abnormal (test code = 97144-2) [facility] [id number] 16:18:22 Test Item Value Reference Range Interpretation Comments Protein, Total (test 7.0 See_Comment [Autom ated code = 2885-2) message] The system which generated this result transmit levi reference range : 6.0 - 8.3 gm/dL . The reference range was not u sed to interpret th is result as normal/abnormal . Albumin (test code = 2.7 g/dL 3.5-5.0 L 35995-4) Alkaline Phosphatase 99 U/L 40-150 (test code = 6768-6) Total Bilirubin (test 0.4 mg/dL 0.2-1.2 code = 1975-2) Sodium (test code = 135 meq/L 136-145 L 2951-2) Potassium (test code 3.7 meq/L 3.5-5.1 = 2823-3) Chloride (test code = 100 meq/L 98-107 2075-0) CO2 (test code = 29 meq/L 22-29 8-9) BUN (test code = 17 mg/dL 7-21 3094-0) Creatinine (test code 4.22 mg/dL 0.57-1.25 H = 2160-0) Glucose (test code = 109 mg/dL 70-105 H 2345-7) Calcium (test code = 8.4 mg/dL 8.4-10.2 61516-9) AST (test code = 17 U/L 5-34 1920-8) ALT (test code = 10 U/L 6-55 1742-6) EGFR (test code = 11 mL/min/1.[place] [address]-1) NOT ACCURATE CREATININE CLEARANCE IN PREDICTING GLOMERULAR FILTRATION RATE . ESTIMATED GFR I S NOT APPLICABLE FOR DIALYSIS PATIEN TS. BRANDI (test code = BRANDI) [employer] ID - BS Lab Interpretation Abnormal (test code = 03930-0) [facility] [id number] 16:18:22 Test Item Value Reference Range Interpretation Comments TOTAL PROTEIN 7.0 gm/dL 6.0-8.3 (BEAKER) (test code = 770) ALBUMIN (BEAKER) 2.7 g/dL 3.5-5.0 L (test code = 1145) ALKALINE PHOSPHATASE 99 U/L 40-150 (BEAKER) (test code = 346) BILIRUBIN TOTAL 0.4 mg/dL 0.2-1.2 (BEAKER) (test code = 377) SODIUM (BEAKER) (test 135 meq/L 136-145 L code = 381) POTASSIUM (BEAKER) 3.7 meq/L 3.5-5.1 (test code = 379) CHLORIDE (BEAKER) 100 meq/L 98-107 (test code = 382) CO2 (BEAKER) (test 29 meq/L 22-29 code = 355) BLOOD UREA NITROGEN 17 mg/dL 7-21 (BEAKER) (test code = 354) CREATININE (BEAKER) 4.22 mg/dL 0.57-1.25 H (test code = 358) GLUCOSE RANDOM 109 mg/dL 70-105 H (BEAKER) (test code = 652) CALCIUM (BEAKER) 8.4 mg/dL 8.4-10.2 (test code = 697) AST (SGOT) (BEAKER) 17 U/L 5-34 (test code = 353) ALT (SGPT) (BEAKER) 10 U/L 6-55 (test code = 347) EGFR (BEAKER) (test 11 mL/min/1.73 ESTIMA LEVI GFR IS code = 1092) sq m NOT ACCURATE CREATININE CLEARANCE IN PREDICTING GLOMERULAR FILTRATION RATE . ESTIMATED GFR I S NOT APPLICABLE FOR DIALYSIS PATIEN TS. [employer] ID - [id number] 16:17:20 Test Item Value Reference Range Interpretation Comments MAGNESIUM (BEAKER) (test code = 1.8 mg/dL 1.6-2.6 627) [employer] ID - [id number] 16:10:37 Test Item Value Reference Range Interpretation Comments PARTIAL THROMBOPLASTIN TIME 34.5 seconds 22.5-36.0 (BEAKER) (test code = 760) PROTHROMBIN [id number] 16:10:03 Test Item Value Reference Range Interpretation Comments PROTIME (BEAKER) 17.2 seconds 11.9-14.2 H (test code = 759) INR (BEAKER) (test 1.43 See_Comment [Automat ed message] code = 370) The system [employer] management generated this result transmitted ref erence range: <=5.90. The reference range was not used to int erpret this result as normal/abnormal . RECOMMENDED COUMADIN/WARFARIN INR THERAPY RANGESSTANDARD DOSE: 2.0 - 3.0 Includes: PROPHYLAXIS forvenous thrombosis, systemic embolization; TREATMENT for venous thrombosis and/or pulmonary embolus.HIGH RISK: Target INR is 2.5-3.5 for patients with mechanical heart valves.CBC W/PLT COUNT & AUTO DIFFERENTIAL 2021-06-17 16:01:31 Test Item Value Reference Range Interpretation Comments WHITE BLOOD CELL COUNT (BEAKER) 8.9 K/ L 3.5-10.5 (test code = 775) RED BLOOD CELL COUNT (BEAKER) 2.25 M/ L 3.93-5.22 L (test code = 761) HEMOGLOBIN (BEAKER) (test code = 7.0 GM/DL 11.2-15.7 L 410) HEMATOCRIT (BEAKER) (test code = 21.8 % 34.1-44.9 L 411) MEAN CORPUSCULAR VOLUME (BEAKER) 96.9 fL 79.4-94.8 H (test code = 753) MEAN CORPUSCULAR HEMOGLOBIN 31.1 pg 25.6-32.2 (BEAKER) (test code = 751) MEAN CORPUSCULAR HEMOGLOBIN CONC 32.1 GM/DL 32.2-35.5 L (BEAKER) (test code = 752) RED CELL DISTRIBUTION WIDTH 16.9 % 11.7-14.4 H (BEAKER) (test code = 412) PLATELET COUNT (BEAKER) (test code 81 K/CU MM 150-450 L = 756) MEAN PLATELET VOLUME (BEAKER) 11.2 fL 9.4-12.3 (test code = 754) NUCLEATED RED BLOOD CELLS (BEAKER) 0 /100 WBC 0-0 (test code = 413) NEUTROPHILS RELATIVE PERCENT 84 % (BEAKER) (test code = 429) LYMPHOCYTES RELATIVE PERCENT 6 % (BEAKER) (test code = 430) MONOCYTES RELATIVE PERCENT 9 % (BEAKER) (test code = 431) EOSINOPHILS RELATIVE PERCENT 0 % (BEAKER) (test code = 432) BASOPHILS RELATIVE PERCENT 0 % (BEAKER) (test code = 437) NEUTROPHILS ABSOLUTE COUNT 7.46 K/ L 1.56-6.13 H (BEAKER) (test code = 670) LYMPHOCYTES ABSOLUTE COUNT 0.52 K/ L 1.18-3.74 L (BEAKER) (test code = 414) MONOCYTES ABSOLUTE COUNT (BEAKER) 0.82 K/ L 0.24-0.36 H (test code = 415) EOSINOPHILS ABSOLUTE COUNT 0.02 K/ L 0.04-0.36 L (BEAKER) (test code = 416) BASOPHILS ABSOLUTE COUNT (BEAKER) 0.03 K/ L 0.01-0.08 (test code = 417) IMMATURE GRANULOCYTES-RELATIVE 1 % 0-1 PERCENT (BEAKER) (test code = 2801) NV, ANGIOGRAM, [id number] 09:13:00Reason for exam:->mycotic aneurysm rule out[facility] : 1955 Sex: FFINAL REPORT DATE OF PROCEDURE: 06/16/2021 SURGEON: Mili Kent MD CREW[employer] PERSON[employer]EL CARRIER M113: Eloy Portillo MD; Alisa Monae MD PREOPERATIVE DIAGNOSIS: Subarachnoid hemorrhage POST OPERATIVE DIAGNOSIS: Nonaneurysmal subarachnoid hemorrhage PROCEDURE: Diagnostic cerebral injury ANESTHESIA: Monitored anesthesia ESTIMATED BLOOD LOSS: Minimal COMPLICATIONS: None Vessels catheterize d:Right common femoral arteryRight common carotid artery, cervicalRight common carotid, cerebralLeftcommon carotid artery, cervicalLeft common carotid, cerebralLeft vertebral artery *FEMORAL*5F sheathBentson WireVertebral CatheterTerumo [place] wireMynx Closure Device INDICATIONS: The patient is a 65-ye ar-old 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 She presents for diagnostic cerebral angiogram to rule out mycotic aneurysm prior to valve replacement. CONSENT: The risks and benefits of the procedure were discussed with the patient and his/her family. These include but are not limited to infection, bleeding, stroke, , vessel injury, groin hematoma, retroperitoneal hematoma and need for additional treatment and/or therapy. The questions were answered. They understood and wished to proceed. PROCEDURE: The right femoral artery was identified using ultrasound, a still frame was captured and uploaded to PACS for reference. *FEMORAL*A time-out was performed. Both groins were prepped in the usual sterile fashion using Chloraprep, and sterilely draped. The skin over the right femoral artery was anesthetized with 1% lidocaine. A single wall puncture of the right femoral artery was performed using a micropuncture set and dilator and a 5-Fr short sheath was inserted into the right common femoral artery and maintained on heparinized flush. Using coaxial technique, a 5-Fr Angled glide catheter was advanced into the descending aorta, back-bled, and flushed inthe usual fashion. Using coaxial technique, the catheter was advanced into the aortic arch, and withthe aid of the roadmapping, digital fluoroscopy, and careful guidewire manipulation the mentioned above arteries were catheterized. Upon each successive selective catheterization, digital subtraction angiography using the appropriate rate and volume of contrast in multiple projections was performed. 3-dimensional angiogram was performed and processed on an independent workstation. These images were reviewed by Mili Kent separately. The catheter was removed. The sheath was removed and hemostasis was achieved with a mynx closure device. The patient tolerated the procedure well and was taken to PACU in stable condition. FINDINGS: RIGHT COMMON FEMORAL ARTERY (DSA - AP, LATERAL - ILIAC) The sheath enters above the femoral bifurcation. The femoral artery and bifurcation are widely patent without evidence of ulceration or stenosis. RIGHT COMMON CAROTID ARTERY (DSA - AP, LATERAL - CERVICAL) The catheter was used to select the right common carotid artery. DSA in the AP and lateral views of the cervical region performed. The distal common, proximal internal, and imaged external carotid arteries are normal in caliber and contour. The carotid bifurcation is widely patent. RIGHT COMMON CAROTID ARTERY (DSA - AP, LATERAL - HEAD) The catheter was advanced into the right common carotid artery. DSA in the AP, lateral, and oblique views of the intracranial and extracranial circulation was performed. The intracranial segments of the right internal carotid artery, the middle cerebral artery, and the anterior cerebral artery and the branch vessels are normal in caliber and contour. The anterior and posterior communicating arteries are patent. There is a right SISTER SUPERIOR variant anatomy. No evidence of aneurysm, vascular malformation, or arteriovenous shunting. Dynamic imaging demonstrates a normal capillary phase. The intracranial venous structures opacify appropriately and appear patent. The visualized branches of the right external carotid artery appear normal in contour and caliber. No evidence of aneurysm, vascular malformation or arteriovenous shunting. 3D ROTATIONAL ANGIOGRAPHY OF RIGHT COMMON CAROTID ARTERY (DSA - AP, LATERAL - HEAD) The catheter was advanced into the right common carotid artery. 3-D rotational angiography of the intracranial and extracranial circulation was performed. The intracranial segments of the right internal carotid artery, the middle cerebral artery, and the anterior cerebral artery and the branch vessels are normal in caliber and contour. No evidence of aneurysm, vascular malformation, or arteriovenous shunting. LEFT COMMON CAROTID ARTERY (DSA - AP, LATERAL - CERVI YEOL) The catheter was used to select the left common carotid artery. DSA in the AP and lateral viewsof the cervical region was performed. The distal common, proximal internal, and imaged external carotid arteries are normal in caliber and contour. The carotid bifurcation is widely patent. LEFT COMMONCAROTID ARTERY (DSA - AP, LATERAL - HEAD) The catheter was advanced into the left common carotid artery. DSA in the AP, lateral, and oblique views of the intracranial circulation was performed. The intracranial segments of the left internal carotid artery, the middle cerebral artery, and the anterior cerebral artery and the branch vessels are normal in caliber and contour. The anterior and posterior communicating arteries are patent. There is a right PCOM infundibulum. No evidence of aneurysm, vascular malformation, or arteriovenous shunting. Dynamic imaging demonstrates a normal capillary phase. The intracranial venous structures opacify appropriately and appear patent. The visualized branches of the left external carotid artery appear normal in contour and caliber. No evidence of aneurysm, vascular malformation or arteriovenous shunting. 3D ROTATIONAL ANGIOGRAPHY OF LEFT COMMON CAROTID ARTERY (DSA - AP, LATERAL - HEAD) The catheter was advanced into the left common carotid artery. D rotational angiography of the intracranial circulation was performed. The intracranial segments of the left internal carotid artery, the middle cerebral artery, and the anterior cerebral artery and the branch vessels are normal in caliber and contour. No evidence of aneurysm, vascular malformation, or arteriovenous shunting. LEFT VERTEBRAL ARTERY (DSA - AP, LATERAL - HEAD) The catheter was advanced into the left vertebral artery. DSA in the AP and lateral views of the intracranial circulation was performed. The distal vertebral artery and the basilar artery are normal in caliber and contour. The posterior inferior cerebellar artery is normal in caliber and contour. Flash filling of the distal right vertebral artery demonstrates patency of the right distal V4 segment and the right posterior inferior cerebellar artery. The anterior inferior and superior cerebellar arteries are normal in caliber and contour. The right posterior cerebral artery is diminutive in size given SISTER SUPERIOR anatomy and the the left SISTER SUPERIOR is normal in caliber and contour. No evidence of aneurysm, vascular malformation, or arteriovenous shunting. Dynamic imaging guidance with normal capillary phase. The intracranial venous structures opacify appropriately and appear patent. SUPERVISION AND INTERPRETATION: Dr. Kent was present for the entirety of the procedure Angiographic study demonstrates: 1. Normal cerebral angiogram. There isno evidence of mycotic aneurysm, vascular malformation or arteriovenous shunting. No immediate technical or clinical complications. Signed: Mili Kent MDReport Verified Date/Time: 06/17/2021 09:13:43 Reading [facility] BASIC METABOLIC [id number] 05:09:41 Test Item Value Reference Range Interpretation Comments SODIUM (BEAKER) 131 meq/L 136-145 L (test code = 381) POTASSIUM (BEAKER) 4.6 meq/L 3.5-5.1 (test code = 379) CHLORIDE (BEAKER) 98 meq/L 98-107 (test code = 382) CO2 (BEAKER) (test 22 meq/L 22-29 code = 355) BLOOD UREA NITROGEN 38 mg/dL 7-21 H (BEAKER) (test code = 354) CREATININE (BEAKER) 7.66 mg/dL 0.57-1.25 H (test code = 358) GLUCOSE RANDOM 189 mg/dL 70-105 H (BEAKER) (test code = 652) CALCIUM (BEAKER) 8.5 mg/dL 8.4-10.2 (test code = 697) EGFR (BEAKER) (test 5 mL/min/1.73 ESTIMAT ED GFR IS code = 1092) sq m NOT ACCURATE CREATININE CLEARANCE IN PREDICTING GLOMERULAR FILTRATION RATE . ESTIMATED GFR I S NOT APPLICABLE FOR DIALYSIS PATIEN TS. [employer] ID - HIEN [id number] 05:07:06 Test Item Value Reference Range Interpretation Comments MAGNESIUM (BEAKER) (test code = 2.1 mg/dL 1.6-2.6 627) [employer] Associate ID - HIEN [id number] 05:07:06 Test Item Value Reference Range Interpretation Comments PHOSPHORUS (BEAKER) (test code = 5.7 mg/dL 2.3-4.7 H 604) [employer] Associate ID - HIEN MCBC W/PLT COUNT & AUTO [id number] 04:38:56 Test Item Value Reference Range Interpretation Comments WHITE BLOOD CELL COUNT (BEAKER) 6.8 K/ L 3.5-10.5 (test code = 775) RED BLOOD CELL COUNT (BEAKER) 2.45 M/ L 3.93-5.22 L (test code = 761) HEMOGLOBIN (BEAKER) (test code = 7.6 GM/DL 11.2-15.7 L 410) HEMATOCRIT (BEAKER) (test code = 23.8 % 34.1-44.9 L 411) MEAN CORPUSCULAR VOLUME (BEAKER) 97.1 fL 79.4-94.8 H (test code = 753) MEAN CORPUSCULAR HEMOGLOBIN 31.0 pg 25.6-32.2 (BEAKER) (test code = 751) MEAN CORPUSCULAR HEMOGLOBIN CONC 31.9 GM/DL 32.2-35.5 L (BEAKER) (test code = 752) RED CELL DISTRIBUTION WIDTH 16.7 % 11.7-14.4 H (BEAKER) (test code = 412) PLATELET COUNT (BEAKER) (test code 74 K/CU MM 150-450 L = 756) MEAN PLATELET VOLUME (BEAKER) 11.7 fL 9.4-12.3 (test code = 754) NUCLEATED RED BLOOD CELLS (BEAKER) 0 /100 WBC 0-0 (test code = 413) NEUTROPHILS RELATIVE PERCENT 75 % (BEAKER) (test code = 429) LYMPHOCYTES RELATIVE PERCENT 13 % (BEAKER) (test code = 430) MONOCYTES RELATIVE PERCENT 10 % (BEAKER) (test code = 431) EOSINOPHILS RELATIVE PERCENT 1 % (BEAKER) (test code = 432) BASOPHILS RELATIVE PERCENT 1 % (BEAKER) (test code = 437) NEUTROPHILS ABSOLUTE COUNT 5.13 K/ L 1.56-6.13 (BEAKER) (test code = 670) LYMPHOCYTES ABSOLUTE COUNT 0.89 K/ L 1.18-3.74 L (BEAKER) (test code = 414) MONOCYTES ABSOLUTE COUNT (BEAKER) 0.68 K/ L 0.24-0.36 H (test code = 415) EOSINOPHILS ABSOLUTE COUNT 0.06 K/ L 0.04-0.36 (BEAKER) (test code = 416) BASOPHILS ABSOLUTE COUNT (BEAKER) 0.04 K/ L 0.01-0.08 (test code = 417) IMMATURE GRANULOCYTES-RELATIVE 0 % 0-1 PERCENT (BEAKER) (test code = 2801) POCT-GLUCOSE [id number] 00:10:32 Test Item Value Reference Range Interpretation Comments POC-GLUCOSE METER 221 mg/dL 70-110 H : TESTED A T [facility] 6720 (BEAKER) (test code = [facility], 1538) [address]21: [employer] Associate/Techni kelle ID = [id number] for SHAHLA BARRY POCT-GLUCOSE [id number] 18:11:32 Test Item Value Reference Range Interpretation Comments POC-GLUCOSE METER 170 mg/dL 70-110 H : TESTED A T [facility] 6720 (BEAKER) (test code = [facility], 1538) 79746: [employer] Associate/Techni kelle ID = [id number] for An Onelia ramirez Blood [id number] 14:00:39 Test Item Value Reference Range Interpretation Comments Result (test code = No growth in 5 days 6463-4) [facility] [id number] 14:00:39 Test Item Value Reference Range Interpretation Comments Result (test code = No growth in 5 days 6463-4) [facility] [id number] 14:00:39 Test Item Value Reference Range Interpretation Comments Result (test code = No growth in 5 days 6463-4) [facility] [id number] 14:00:39 Test Item Value Reference Range Interpretation Comments Result (test code = No growth in 5 days 6463-4) [facility]2022-03-15 14:00:39 Test Item Value Reference Range Interpretation Comments Result (test code = No growth in 5 days 6463-4) [facility]2022-03-15 14:00:39 Test Item Value Reference Range Interpretation Comments Result (test code = No growth in 5 days 6463-4) [facility] [id number] 14:00:39 Test Item Value Reference Range Interpretation Comments Result (test code = No growth in 5 days 6463-4) [facility]2022-03-15 14:00:39 Test Item Value Reference Range Interpretation Comments Result (test code = No growth in 5 days 6463-4) [facility]2022-03-15 14:00:39 Test Item Value Reference Range Interpretation Comments Result (test code = No growth in 5 days 6463-4) [facility]2022-03-15 14:00:39 Test Item Value Reference Range Interpretation Comments Result (test code = No growth in 5 days 6463-4) [facility]2022-03-15 14:00:39 Test Item Value Reference Range Interpretation Comments CULTURE (BEAKER) (test No growth in 5 days code = 1095) MR, BRAIN, WITHOUT [id number] 13:02:00Pt has [employer] ESSENTIO MRI [id number]/ [id number] Unlisted Reason for Exam - Click Yes and Enter Reason Below- >No Deos the patient have an implanted electronic device?->Yes [employer] ESS[employer] MRI L111/ [id number] [facility] : 1955 Sex: FFINAL REPORT MR, BRAIN, WITHOUT CONTRAST INDICATION: Stroke, follow up Technique: MRI of the brain utilizing axial T1, T2, FLAIR, GRE, DWI, sagittal T1; and postgadolinium axial, sagittal, and coronal T1-weighted images. COMPARISON: CT brain 06/12/2021 FINDINGS:Unchanged subarachnoid hemorrhage at the right parietal vertex and right occipital convexity, with lack of CSF suppression of the sulci. No acute infarct. Scattered T2/FLAIR hyperintense foci within the periventricular and subcortical white matter are nonspecific. No hydrocephalus. Orbits are within normal limits. No obstructive paranasal sinus disease. Additional findings: None. IMPRESSION: Unchanged subarachnoid hemorrhage at the right parietal vertex and right occipital convexity, with lack of CSF suppression of the sulci. Signed: Bayron Cosme Verified Date/Time: 06/16/2021 13:02:07 Reading Location: [address] Neuro Reading Room BLOOD [id number] 08:00:27 Test Item Value Reference Range Interpretation Comments CULTURE (BEAKER) (test No growth in 5 days code = 1095) POCT-GLUCOSE [id number] 07:30:10 Test Item Value Reference Range Interpretation Comments POC-GLUCOSE METER 159 mg/dL 70-110 H : TESTED A T [facility] 6720 (BEAKER) (test [facility] = [facility], 1538) 23763: [employer] Associate/Techni kelle ID = [id number] for An Onelia ramirez BASIC METABOLIC [id number] 05:42:18 Test Item Value Reference Range Interpretation Comments SODIUM (BEAKER) 132 meq/L 136-145 L (test code = 381) POTASSIUM (BEAKER) 4.2 meq/L 3.5-5.1 (test code = 379) CHLORIDE (BEAKER) 100 meq/L 98-107 (test code = 382) CO2 (BEAKER) (test 23 meq/L 22-29 code = 355) BLOOD UREA NITROGEN 29 mg/dL 7-21 H (BEAKER) (test code = 354) CREATININE (BEAKER) 6.62 mg/dL 0.57-1.25 H (test code = 358) GLUCOSE RANDOM 171 mg/dL 70-105 H (BEAKER) (test code = 652) CALCIUM (BEAKER) 8.4 mg/dL 8.4-10.2 (test code = 697) EGFR (BEAKER) (test 6 mL/min/1.73 ESTIMAT ED GFR IS code = 1092) sq m NOT ACCURATE CREATININE CLEARANCE IN PREDICTING GLOMERULAR FILTRATION RATE . ESTIMATED GFR I S NOT APPLICABLE FOR DIALYSIS PATIEN TS. [employer] Associate ID - RAKAN [id number] 05:35:31 Test Item Value Reference Range Interpretation Comments MAGNESIUM (BEAKER) (test code = 2.1 mg/dL 1.6-2.6 627) [facility] Program Associate ID - RAKAN [id number] 05:35:31 Test Item Value Reference Range Interpretation Comments PHOSPHORUS (BEAKER) (test code = 4.5 mg/dL 2.3-4.7 604) [employer] Associate ID - RAKAN WCBC W/PLT COUNT & AUTO [id number] 04:43:33 Test Item Value Reference Range Interpretation Comments WHITE BLOOD CELL COUNT (BEAKER) 5.0 K/ L 3.5-10.5 (test code = 775) RED BLOOD CELL COUNT (BEAKER) 2.53 M/ L 3.93-5.22 L (test code = 761) HEMOGLOBIN (BEAKER) (test code = 7.8 GM/DL 11.2-15.7 L 410) HEMATOCRIT (BEAKER) (test code = 24.9 % 34.1-44.9 L 411) MEAN CORPUSCULAR VOLUME (BEAKER) 98.4 fL 79.4-94.8 H (test code = 753) MEAN CORPUSCULAR HEMOGLOBIN 30.8 pg 25.6-32.2 (BEAKER) (test code = 751) MEAN CORPUSCULAR HEMOGLOBIN CONC 31.3 GM/DL 32.2-35.5 L (BEAKER) (test code = 752) RED CELL DISTRIBUTION WIDTH 16.4 % 11.7-14.4 H (BEAKER) (test code = 412) PLATELET COUNT (BEAKER) (test code 86 K/CU MM 150-450 L = 756) MEAN PLATELET VOLUME (BEAKER) 11.1 fL 9.4-12.3 (test code = 754) NUCLEATED RED BLOOD CELLS (BEAKER) 0 /100 WBC 0-0 (test code = 413) NEUTROPHILS RELATIVE PERCENT 79 % (BEAKER) (test code = 429) LYMPHOCYTES RELATIVE PERCENT 9 % (BEAKER) (test code = 430) MONOCYTES RELATIVE PERCENT 9 % (BEAKER) (test code = 431) EOSINOPHILS RELATIVE PERCENT 1 % (BEAKER) (test code = 432) BASOPHILS RELATIVE PERCENT 1 % (BEAKER) (test code = 437) NEUTROPHILS ABSOLUTE COUNT 3.95 K/ L 1.56-6.13 (BEAKER) (test code = 670) LYMPHOCYTES ABSOLUTE COUNT 0.47 K/ L 1.18-3.74 L (BEAKER) (test code = 414) MONOCYTES ABSOLUTE COUNT (BEAKER) 0.45 K/ L 0.24-0.36 H (test code = 415) EOSINOPHILS ABSOLUTE COUNT 0.06 K/ L 0.04-0.36 (BEAKER) (test code = 416) BASOPHILS ABSOLUTE COUNT (BEAKER) 0.04 K/ L 0.01-0.08 (test code = 417) IMMATURE GRANULOCYTES-RELATIVE 0 % 0-1 PERCENT (BEAKER) (test code = 2801) BLOOD [id number] 00:00:28 Test Item Value Reference Range Interpretation Comments CULTURE (BEAKER) (test No growth in 5 days code = 1095) The specimen volume collected for this blood culture was below the optimum (10 mL per bottle or 20 mL total). Use of lower volumes may adversely affect recovery and/or detection times of some organisms.POCT-GLUCOSE [id number] 21:39:58 Test Item Value Reference Range Interpretation Comments POC-GLUCOSE METER 173 mg/dL 70-110 H : Notified RN/MD: (AKASH) (test code = TESTED AT [facility] 6720 1538) [facility], [address]: [employer] Program Associate/Techni kelle ID = [id number] for DE NNIS, EMANUEL Hepatic function [id number] 15:52:11 Test Item Value Reference Range Interpretation Comments Protein, Total (test 6.8 See_Comment [Autom ated code = 2885-2) message] The system which generated this result transmit levi reference range : 6.0 - 8.3 gm/dL . The reference range was not u sed to interpret th is result as normal/abnormal . Albumin (test code = 2.6 g/dL 3.5-5.0 L 31270-2) Total Bilirubin (test 0.3 mg/dL 0.2-1.2 code = 1974-2) Bilirubin, Direct 0.2 mg/dL 0.1-0.5 (test code = 1967-7) Alkaline Phosphatase 90 U/L 40-150 (test code = 6768-6) AST (test code = 17 U/L 5-34 1920-8) ALT (test code = 11 U/L 6 1742-6) BRANDI (test code = BRANDI) [employer] Program Associate ID - LIANA L Lab Interpretation Abnormal (test code = 00834-4) [facility] [id number] 15:52:11 Test Item Value Reference Range Interpretation Comments Protein, Total (test 6.8 See_Comment [Autom ated code = 2885-2) message] The system which generated this result transmit levi reference range : 6.0 - 8.3 gm/dL . The reference range was not u sed to interpret th is result as normal/abnormal . Albumin (test code = 2.6 g/dL 3.5-5.0 L 84906-8) Total Bilirubin (test 0.3 mg/dL 0.2-1.2 code = 1974-2) Bilirubin, Direct 0.2 mg/dL 0.1-0.5 (test code = 1967-7) Alkaline Phosphatase 90 U/L 40-150 (test code = 6768-6) AST (test code = 17 U/L 5-34 1920-8) ALT (test code = 11 U/L 6 1742-6) BRANDI (test code = BRANDI) [employer] Associate ID - LIANA L Lab Interpretation Abnormal (test code = 01574-7) [facility] [id number] 15:52:11 Test Item Value Reference Range Interpretation Comments Protein, Total (test 6.8 See_Comment [Autom ated code = 2885-2) message] The system which generated this result transmit levi reference range : 6.0 - 8.3 gm/dL . The reference range was not u sed to interpret th is result as normal/abnormal . Albumin (test code = 2.6 g/dL 3.5-5.0 L 90247-2) Total Bilirubin (test 0.3 mg/dL 0.2-1.2 code = 1974-2) Bilirubin, Direct 0.2 mg/dL 0.1-0.5 (test code = 1967-7) Alkaline Phosphatase 90 U/L 40-150 (test code = 6768-6) AST (test code = 17 U/L 534 1920-8) ALT (test code = 11 U/L 655 1742-6) BRANDI (test code = BRANDI) [employer] Program Associate ID - LIANA L Lab Interpretation Abnormal (test code = 65335-5) [facility] [id number] 15:52:11 Test Item Value Reference Range Interpretation Comments Protein, Total (test 6.8 See_Comment [Autom ated code = 2885-2) message] The system which generated this result transmit levi reference range : 6.0 - 8.3 gm/dL . The reference range was not u sed to interpret th is result as normal/abnormal . Albumin (test code = 2.6 g/dL 3.5-5.0 L 80714-5) Total Bilirubin (test 0.3 mg/dL 0.2-1.2 code = 1974-2) Bilirubin, Direct 0.2 mg/dL 0.1-0.5 (test code = 1967-7) Alkaline Phosphatase 90 U/L 40-150 (test code = 6768-6) AST (test code = 17 U/L 34 1920-8) ALT (test code = 11 U/L 6-55 1742-6) BRANDI (test code = BRANDI) [employer] Associate ID - PIAYA L Lab Interpretation Abnormal (test code = 46551-3) [facility] [id number] 15:52:11 Test Item Value Reference Range Interpretation Comments Protein, Total (test 6.8 See_Comment [Autom ated code = 2885-2) message] The system which generated this result transmit levi reference range : 6.0 - 8.3 gm/dL . The reference range was not u sed to interpret th is result as normal/abnormal . Albumin (test code = 2.6 g/dL 3.5-5.0 L 58654-6) Total Bilirubin (test 0.3 mg/dL 0.2-1.2 code = 1974-05) Bilirubin, Direct 0.2 mg/dL 0.1-0.5 (test code = 1967-10) Alkaline Phosphatase 90 U/L 40-150 (test code = 6768-6) AST (test code = 17 U/L 192-8) ALT (test code = 11 U/L 1742-6) BRANDI (test code = BRANDI) [employer] Associate ID - PIAYA L Lab Interpretation Abnormal (test code = 69807-6) [facility] [id number] 15:52:11 Test Item Value Reference Range Interpretation Comments Protein, Total (test 6.8 See_Comment [Autom ated code = 2885-2) message] The system which generated this result transmit levi reference range : 6.0 - 8.3 gm/dL . The reference range was not u sed to interpret th is result as normal/abnormal . Albumin (test code = 2.6 g/dL 3.5-5.0 L 28229-6) Total Bilirubin (test 0.3 mg/dL 0.2-1.2 code = 1974-05) Bilirubin, Direct 0.2 mg/dL 0.1-0.5 (test code = 1967-10) Alkaline Phosphatase 90 U/L 40-150 (test code = 6768-6) AST (test code = 17 U/L 192-8) ALT (test code = 11 U/L 1742-6) BRANDI (test code = BRANDI) [employer] Associate ID - PIAYA L Lab Interpretation Abnormal (test code = 37557-8) [facility] [id number] 15:52:11 Test Item Value Reference Range Interpretation Comments Protein, Total (test 6.8 See_Comment [Autom ated code = 2885-2) message] The system which generated this result transmit levi reference range : 6.0 - 8.3 gm/dL . The reference range was not u sed to interpret th is result as normal/abnormal . Albumin (test code = 2.6 g/dL 3.5-5.0 L 60402-9) Total Bilirubin (test 0.3 mg/dL 0.2-1.2 code = 1974-) Bilirubin, Direct 0.2 mg/dL 0.1-0.5 (test code = 1967-10) Alkaline Phosphatase 90 U/L 40-150 (test code = 6768-6) AST (test code = 17 U/L 5-34 1920-8) ALT (test code = 11 U/L 1742-6) BRANDI (test code = BRANDI) [employer] Associate ID - PIAYA L Lab Interpretation Abnormal (test code = 95955-9) [facility] [id number] 15:52:11 Test Item Value Reference Range Interpretation Comments Protein, Total (test 6.8 See_Comment [Autom ated code = 2885-2) message] The system which generated this result transmit levi reference range : 6.0 - 8.3 gm/dL . The reference range was not u sed to interpret th is result as normal/abnormal . Albumin (test code = 2.6 g/dL 3.5-5.0 L 57055-6) Total Bilirubin (test 0.3 mg/dL 0.2-1.2 code = 1974-05) Bilirubin, Direct 0.2 mg/dL 0.1-0.5 (test code = 1967-10) Alkaline Phosphatase 90 U/L 40-150 (test code = 6768-6) AST (test code = 17 U/L 34 1920-8) ALT (test code = 11 U/L 1742-6) BRANDI (test code = BRANDI) [employer] Program Associate ID - PIAYA L Lab Interpretation Abnormal (test code = 12172-2) [facility] [id number] 15:52:11 Test Item Value Reference Range Interpretation Comments Protein, Total (test 6.8 See_Comment [Autom ated code = 2885-2) message] The system which generated this result transmit leiv reference range : 6.0 - 8.3 gm/dL . The reference range was not u sed to interpret th is result as normal/abnormal . Albumin (test code = 2.6 g/dL 3.5-5.0 L 63887-3) Total Bilirubin (test 0.3 mg/dL 0.2-1.2 code = 1974-05) Bilirubin, Direct 0.2 mg/dL 0.1-0.5 (test code = 1967-) Alkaline Phosphatase 90 U/L 40-150 (test code = 6768-6) AST (test code = 17 U/L 34 1920-8) ALT (test code = 11 U/L 1742-6) BRANDI (test code = BRANDI) [employer] Associate ID - PIAYA L Lab Interpretation Abnormal (test code = 92825-6) [facility] [id number] 15:52:11 Test Item Value Reference Range Interpretation Comments Protein, Total (test 6.8 See_Comment [Autom ated code = 2885-2) message] The system which generated this result transmit levi reference range : 6.0 - 8.3 gm/dL . The reference range was not u sed to interpret th is result as normal/abnormal . Albumin (test code = 2.6 g/dL 3.5-5.0 L 61727-1) Total Bilirubin (test 0.3 mg/dL 0.2-1.2 code = 1974-05) Bilirubin, Direct 0.2 mg/dL 0.1-0.5 (test code = 1967-) Alkaline Phosphatase 90 U/L 40-150 (test code = 6768-6) AST (test code = 17 U/L 34 192-8) ALT (test code = 11 U/L 1742-6) BRANDI (test code = BRANDI) [employer] Associate ID - PIAYA L Lab Interpretation Abnormal (test code = 74968-3) [facility] [id number] 15:52:11 Test Item Value Reference Range Interpretation Comments TOTAL PROTEIN (BEAKER) (test code = 6.8 gm/dL 6.0-8.3 770) ALBUMIN (BEAKER) (test code = 1145) 2.6 g/dL 3.5-5.0 L BILIRUBIN TOTAL (BEAKER) (test code 0.3 mg/dL 0.2-1.2 = 377) BILIRUBIN DIRECT (BEAKER) (test 0.2 mg/dL 0.1-0.5 code = 706) ALKALINE PHOSPHATASE (BEAKER) (test 90 U/L 40-150 code = 346) AST (SGOT) (BEAKER) (test code = 17 U/L 5-34 353) ALT (SGPT) (NABILAKER) (test code = 11 U/L 6-55 347) [employer] Program Associate NORAH - LIANA LHeparin [id number] 12:21:31 Test Item Value Reference Range Interpretation Comments Heparin Ab (test code Negative Negative = 3267-2) Heparin Antibody 0.247 <0.400 Optical Density (test code = 2659) 4T Total Score (test 4 code = 2661) BRANDI (test code = BRANDI) Probability of HIT based on scoring system: 6-8 = High probability; 4-5 = intermediate probability; 0-3 = low probability [facility] [id number] 12:21:31 Test Item Value Reference Range Interpretation Comments Heparin Ab (test code Negative Negative = 3267-2) Heparin Antibody 0.247 <0.400 Optical Density (test code = 2659) 4T Total Score (test 4 code = 2661) BRANDI (test code = BRANDI) Probability of HIT based on scoring system: 6-8 = High probability; 4-5 = intermediate probability; 0-3 = low probability [facility] [id number] 12:21:31 Test Item Value Reference Range Interpretation Comments Heparin Ab (test code Negative Negative = 3267-2) Heparin Antibody 0.247 <0.400 Optical Density (test code = 2659) 4T Total Score (test 4 code = 2661) BRANDI (test code = BRANDI) Probability of HIT based on scoring system: 6-8 = High probability; 4-5 = intermediate probability; 0-3 = low probability [facility] [id number] 12:21:31 Test Item Value Reference Range Interpretation Comments Heparin Ab (test code Negative Negative = 3267-2) Heparin Antibody 0.247 <0.400 Optical Density (test code = 2659) 4T Total Score (test 4 code = 2661) BRANDI (test code = BRANDI) Probability of HIT based on scoring system: 6-8 = High probability; 4-5 = intermediate probability; 0-3 = low probability [facility] [id number] 12:21:31 Test Item Value Reference Range Interpretation Comments Heparin Ab (test code Negative Negative = 3267-2) Heparin Antibody 0.247 <0.400 Optical Density (test code = 2659) 4T Total Score (test 4 code = 2661) BRANDI (test code = BRANDI) Probability of HIT based on scoring system: 6-8 = High probability; 4-5 = intermediate probability; 0-3 = low probability [facility] [id number] 12:21:31 Test Item Value Reference Range Interpretation Comments Heparin Ab (test code Negative Negative = 3267-2) Heparin Antibody 0.247 <0.400 Optical Density (test code = 2659) 4T Total Score (test 4 code = 2661) BRANDI (test code = BRANDI) Probability of HIT based on scoring system: 6-8 = High probability; 4-5 = intermediate probability; 0-3 = low probability [facility] [id number] 12:21:31 Test Item Value Reference Range Interpretation Comments Heparin Ab (test code Negative Negative = 3267-2) Heparin Antibody 0.247 <0.400 Optical Density (test code = 2659) 4T Total Score (test 4 code = 2661) BRANDI (test code = BRANDI) Probability of HIT based on scoring system: 6-8 = High probability; 4-5 = intermediate probability; 0-3 = low probability [facility] [id number] 12:21:31 Test Item Value Reference Range Interpretation Comments Heparin Ab (test code Negative Negative = 3267-2) Heparin Antibody 0.247 <0.400 Optical Density (test code = 2659) 4T Total Score (test 4 code = 2661) BRANDI (test code = BRANDI) Probability of HIT based on scoring system: 6-8 = High probability; 4-5 = intermediate probability; 0-3 = low probability [facility] [id number] 12:21:31 Test Item Value Reference Range Interpretation Comments Heparin Ab (test code Negative Negative = 3267-2) Heparin Antibody 0.247 <0.400 Optical Density (test code = 2659) 4T Total Score (test 4 code = 2661) BRANDI (test code = BRANDI) Probability of HIT based on scoring system: 6-8 = High probability; 4-5 = intermediate probability; 0-3 = low probability [facility] [id number] 12:21:31 Test Item Value Reference Range Interpretation Comments Heparin Ab (test code Negative Negative = 3267-2) Heparin Antibody 0.247 <0.400 Optical Density (test code = 2659) 4T Total Score (test 4 code = 2661) BRANDI (test code = BRANDI) Probability of HIT based on scoring system: 6-8 = High probability; 4-5 = intermediate probability; 0-3 = low probability [facility] [id number] 12:21:31 Test Item Value Reference Range Interpretation Comments HEPARIN ANTIBODY (BEAKER) (test code Negative Negative = 646) HEPARIN ANTIBODY OD (BEAKER) (test 0.247 <0.400 code = 2659) 4T TOTAL SCORE (BEAKER) (test code = 4 2661) Probability of HIT based on scoring system: 6-8 = High probability; 4-5 = intermediate probability;0-3 = low probabilityTrios [id number] 08:07:00 Test Item Value Reference Range Interpretation Comments ABO Grouping (test code = 2588) O Rh Factor (test code = 2589) [facility]2022-03-14 08:07:00 Test Item Value Reference Range Interpretation Comments ABO Grouping (test code = 2588) O Rh Factor (test code = 2589) [facility]2022-03-14 08:07:00 Test Item Value Reference Range Interpretation Comments ABO Grouping (test code = 2588) O Rh Factor (test code = 2589) [facility]2022-03-14 08:07:00 Test Item Value Reference Range Interpretation Comments ABO Grouping (test code = 2588) O Rh Factor (test code = 2589) [facility]2022-03-14 08:07:00 Test Item Value Reference Range Interpretation Comments ABO Grouping (test code = 2588) O Rh Factor (test code = 2589) [facility]2022-03-14 08:07:00 Test Item Value Reference Range Interpretation Comments ABO Grouping (test code = 2588) O Rh Factor (test code = 2589) [facility], [id number] 08:07:00 Test Item Value Reference Range Interpretation Comments ABO Grouping (test code = 2588) O Rh Factor (test code = 2589) [facility], [id number] 08:07:00 Test Item Value Reference Range Interpretation Comments ABO Grouping (test code = 2588) O Rh Factor (test code = 2589) [facility], [id number] 08:07:00 Test Item Value Reference Range Interpretation Comments ABO Grouping (test code = 2588) O Rh Factor (test code = 2589) [facility]2022-03-14 08:07:00 Test Item Value Reference Range Interpretation Comments ABO Grouping (test code = 2588) O Rh Factor (test code = 2589) [facility] [id number] 05:19:52 Test Item Value Reference Range Interpretation Comments SODIUM (BEAKER) 136 meq/L 136-145 (test code = 381) POTASSIUM (BEAKER) 3.8 meq/L 3.5-5.1 (test code = 379) CHLORIDE (BEAKER) 102 meq/L 98-107 (test code = 382) CO2 (BEAKER) (test 24 meq/L 22-29 code = 355) BLOOD UREA NITROGEN 22 mg/dL 7-21 H (BEAKER) (test code = 354) CREATININE (BEAKER) 5.68 mg/dL 0.57-1.25 H (test code = 358) GLUCOSE RANDOM 160 mg/dL 70-105 H (BEAKER) (test code = 652) CALCIUM (BEAKER) 8.5 mg/dL 8.4-10.2 (test code = 697) EGFR (BEAKER) (test 8 mL/min/1.73 ESTIMAT ED GFR IS code = 1092) sq m NOT ACCURATE CREATININE CLEARANCE IN PREDICTING GLOMERULAR FILTRATION RATE . ESTIMATED GFR I S NOT APPLICABLE FOR DIALYSIS PATIEN TS. [employer] Associate ID - PIAYA [id number] 05:09:04 Test Item Value Reference Range Interpretation Comments PHOSPHORUS (BEAKER) (test code = 4.1 mg/dL 2.3-4.7 604) [employer] Associate ID - LIANA [id number] 05:09:03 Test Item Value Reference Range Interpretation Comments MAGNESIUM (BEAKER) (test code = 2.0 mg/dL 1.6-2.6 627) [employer] Associate ID - LIANA LPT/[id number] 04:53:34 Test Item Value Reference Interpretation Comments Range Protime (test code = 13.7 See_Comment [Autom ated 5902-2) message] The system which generated this result transmitted reference range : 11.9 - 14.2 seconds. The reference range was not used to interpret this result as normal/abnormal . INR (test code = 1.07 See_Comment [Automated 6301-6) message] The system which generated this result transmitted reference range : <=5.90. The reference range was not used to interpret this result as normal/abnormal . PTT (test code = 32.5 See_Comment [Automated 17627-0) message] The system which generated this result transmitted reference range : 22.5 - 36.0 seconds. The reference range was not used to interpret this result as normal/abnormal . BRANDI (test code = RECOMMENDED BRANDI) COUMADIN/WARFARIN INR THERAPY RANGESSTANDARD DOSE: 2.0 - 3.0 Includes: PROPHYLAXIS for venous thrombosis, systemic embolization; TREATMENT for venous thrombosis and/or pulmonary embolus.HIGH RISK: Target INR is 2.5-3.5 for patients with mechanical heart valves. Lab Interpretation Normal (test code = 76679-9) [facility]PT/[id number] 04:53:34 Test Item Value Reference Interpretation Comments Range Protime (test code = 13.7 See_Comment [Autom ated 5902-2) message] The system which generated this result transmitted reference range : 11.9 - 14.2 seconds. The reference range was not used to interpret this result as normal/abnormal . INR (test code = 1.07 See_Comment [Automated 6301-6) message] The system which generated this result transmitted reference range : <=5.90. The reference range was not used to interpret this result as normal/abnormal . PTT (test code = 32.5 See_Comment [Automated 02162-7) message] The system which generated this result transmitted reference range : 22.5 - 36.0 seconds. The reference range was not used to interpret this result as normal/abnormal . BRANDI (test code = RECOMMENDED BRANDI) COUMADIN/WARFARIN INR THERAPY RANGESSTANDARD DOSE: 2.0 - 3.0 Includes: PROPHYLAXIS for venous thrombosis, systemic embolization; TREATMENT for venous thrombosis and/or pulmonary embolus.HIGH RISK: Target INR is 2.5-3.5 for patients with mechanical heart valves. Lab Interpretation Normal (test code = 14679-5) [facility]PT/[id number] 04:53:34 Test Item Value Reference Interpretation Comments Range Protime (test code = 13.7 See_Comment [Autom ated 5902-2) message] The system which generated this result transmitted reference range : 11.9 - 14.2 seconds. The reference range was not used to interpret this result as normal/abnormal . INR (test code = 1.07 See_Comment [Automated 6301-6) message] The system which generated this result transmitted reference range : <=5.90. The reference range was not used to interpret this result as normal/abnormal . PTT (test code = 32.5 See_Comment [Automated 33928-1) message] The system which generated this result transmitted reference range : 22.5 - 36.0 seconds. The reference range was not used to interpret this result as normal/abnormal . BRANDI (test code = RECOMMENDED BRANDI) COUMADIN/WARFARIN INR THERAPY RANGESSTANDARD DOSE: 2.0 - 3.0 Includes: PROPHYLAXIS for venous thrombosis, systemic embolization; TREATMENT for venous thrombosis and/or pulmonary embolus.HIGH RISK: Target INR is 2.5-3.5 for patients with mechanical heart valves. Lab Interpretation Normal (test code = 73554-2) [facility]PT/[id number] 04:53:34 Test Item Value Reference Interpretation Comments Range Protime (test code = 13.7 See_Comment [Autom ated 5902-2) message] The system which generated this result transmitted reference range : 11.9 - 14.2 seconds. The reference range was not used to interpret this result as normal/abnormal . INR (test code = 1.07 See_Comment [Automated 6301-6) message] The system which generated this result transmitted reference range : <=5.90. The reference range was not used to interpret this result as normal/abnormal . PTT (test code = 32.5 See_Comment [Automated 30099-3) message] The system which generated this result transmitted reference range : 22.5 - 36.0 seconds. The reference range was not used to interpret this result as normal/abnormal . BRANDI (test code = RECOMMENDED BRANDI) COUMADIN/WARFARIN INR THERAPY RANGESSTANDARD DOSE: 2.0 - 3.0 Includes: PROPHYLAXIS for venous thrombosis, systemic embolization; TREATMENT for venous thrombosis and/or pulmonary embolus.HIGH RISK: Target INR is 2.5-3.5 for patients with mechanical heart valves. Lab Interpretation Normal (test code = 60455-1) [facility]/[id number] 04:53:34 Test Item Value Reference Interpretation Comments Range Protime (test code = 13.7 See_Comment [Autom [employer] 5902-2) message] The system which generated this result transmitted reference range : 11.9 - 14.2 seconds. The reference range was not used to interpret this result as normal/abnormal . INR (test code = 1.07 See_Comment [Automated Lodgeo1-6) message] The system which generated this result transmitted reference range : <=5.90. The reference range was not used to interpret this result as normal/abnormal . PTT (test code = 32.5 See_Comment [Automated 74859-8) message] The system which generated this result transmitted reference range : 22.5 - 36.0 seconds. The reference range was not used to interpret this result as normal/abnormal . BRANDI (test code = RECOMMENDED BRANDI) COUMADIN/WARFARIN INR THERAPY RANGESSTANDARD DOSE: 2.0 - 3.0 Includes: PROPHYLAXIS for venous thrombosis, systemic embolization; TREATMENT for venous thrombosis and/or pulmonary embolus.HIGH RISK: Target INR is 2.5-3.5 for patients with mechanical heart valves. Lab Interpretation Normal (test code = 56237-5) [id number]:53:34 Test Item Value Reference Interpretation Comments Range Protime (test code = 13.7 See_Comment [Autom ated 5902-2) message] The system which generated this result transmitted reference range : 11.9 - 14.2 seconds. The reference range was not used to interpret this result as normal/abnormal . INR (test code = 1.07 See_Comment [Automated 6951-6) message] The system which generated this result transmitted reference range : <=5.90. The reference range was not used to interpret this result as normal/abnormal . PTT (test code = 32.5 See_Comment [Automated 12011-5) message] The system which generated this result transmitted reference range : 22.5 - 36.0 seconds. The reference range was not used to interpret this result as normal/abnormal . BRANDI (test code = RECOMMENDED BRANDI) COUMADIN/WARFARIN INR THERAPY RANGESSTANDARD DOSE: 2.0 - 3.0 Includes: PROPHYLAXIS for venous thrombosis, systemic embolization; TREATMENT for venous thrombosis and/or pulmonary embolus.HIGH RISK: Target INR is 2.5-3.5 for patients with mechanical heart valves. Lab Interpretation Normal (test code = 78956-7) [facility][id number] 04:53:34 Test Item Value Reference Interpretation Comments Range Protime (test code = 13.7 See_Comment [Autom ated 5902-2) message] The system which generated this result transmitted reference range : 11.9 - 14.2 seconds. The reference range was not used to interpret this result as normal/abnormal . INR (test code = 1.07 See_Comment [Automated 6301-6) message] The system which generated this result transmitted reference range : <=5.90. The reference range was not used to interpret this result as normal/abnormal . PTT (test code = 32.5 See_Comment [Automated 27609-7) message] The system which generated this result transmitted reference range : 22.5 - 36.0 seconds. The reference range was not used to interpret this result as normal/abnormal . BRANDI (test code = RECOMMENDED BRANDI) COUMADIN/WARFARIN INR THERAPY RANGESSTANDARD DOSE: 2.0 - 3.0 Includes: PROPHYLAXIS for venous thrombosis, systemic embolization; TREATMENT for venous thrombosis and/or pulmonary embolus.HIGH RISK: Target INR is 2.5-3.5 for patients with mechanical heart valves. Lab Interpretation Normal (test code = 40085-1) [id number] 04:53:34 Test Item Value Reference Interpretation Comments Range Protime (test code = 13.7 See_Comment [Autom ated 5902-2) message] The system which generated this result transmitted reference range : 11.9 - 14.2 seconds. The reference range was not used to interpret this result as normal/abnormal . INR (test code = 1.07 See_Comment [Automated 6301-6) message] The system which generated this result transmitted reference range : <=5.90. The reference range was not used to interpret this result as normal/abnormal . PTT (test code = 32.5 See_Comment [Automated 05780-0) message] The system which generated this result transmitted reference range : 22.5 - 36.0 seconds. The reference range was not used to interpret this result as normal/abnormal . BRANDI (test code = RECOMMENDED BRANDI) COUMADIN/WARFARIN INR THERAPY RANGESSTANDARD DOSE: 2.0 - 3.0 Includes: PROPHYLAXIS for venous thrombosis, systemic embolization; TREATMENT for venous thrombosis and/or pulmonary embolus.HIGH RISK: Target INR is 2.5-3.5 for patients with mechanical heart valves. Lab Interpretation Normal (test code = 86901-1) [facility][id number] 04:53:34 Test Item Value Reference Interpretation Comments Range Protime (test code = 13.7 See_Comment [Autom ated 5902-2) message] The system which generated this result transmitted reference range : 11.9 - 14.2 seconds. The reference range was not used to interpret this result as normal/abnormal . INR (test code = 1.07 See_Comment [Automated 6301-6) message] The system which generated this result transmitted reference range : <=5.90. The reference range was not used to interpret this result as normal/abnormal . PTT (test code = 32.5 See_Comment [Automated 32618-3) message] The system which generated this result transmitted reference range : 22.5 - 36.0 seconds. The reference range was not used to interpret this result as normal/abnormal . BRANDI (test code = RECOMMENDED BRANDI) COUMADIN/WARFARIN INR THERAPY RANGESSTANDARD DOSE: 2.0 - 3.0 Includes: PROPHYLAXIS for venous thrombosis, systemic embolization; TREATMENT for venous thrombosis and/or pulmonary embolus.HIGH RISK: Target INR is 2.5-3.5 for patients with mechanical heart valves. Lab Interpretation Normal (test code = 66381-1) [facility][id number] 04:53:34 Test Item Value Reference Interpretation Comments Range Protime (test code = 13.7 See_Comment [Autom ated 5902-2) message] The system which generated this result transmitted reference range : 11.9 - 14.2 seconds. The reference range was not used to interpret this result as normal/abnormal . INR (test code = 1.07 See_Comment [Automated 6011-6) message] The system which generated this result transmitted reference range : <=5.90. The reference range was not used to interpret this result as normal/abnormal . PTT (test code = 32.5 See_Comment [Automated 39902-1) message] The system which generated this result transmitted reference range : 22.5 - 36.0 seconds. The reference range was not used to interpret this result as normal/abnormal . BRANDI (test code = RECOMMENDED BRANDI) COUMADIN/WARFARIN INR THERAPY RANGESSTANDARD DOSE: 2.0 - 3.0 Includes: PROPHYLAXIS for venous thrombosis, systemic embolization; TREATMENT for venous thrombosis and/or pulmonary embolus.HIGH RISK: Target INR is 2.5-3.5 for patients with mechanical heart valves. Lab Interpretation Normal (test code = 09348-5) [facility][id number] 04:53:34 Test Item Value Reference Range Interpretation Comments PROTIME (BEAKER) (test 13.7 seconds 11.9-14.2 code = 759) INR (BEAKER) (test 1.07 See_Comment [Automat ed code = 370) message] The sy stem which generated this result transmitted reference range : <=5.90. The reference range was not used to interpret this result as normal/abnormal . PARTIAL THROMBOPLASTIN 32.5 seconds 22.5-36.0 TIME (BEAKER) (test code = 760) RECOMMENDED COUMADIN/WARFARIN INR THERAPY RANGESSTANDARD DOSE: 2.0 - 3.0 Includes: PROPHYLAXIS forvenous thrombosis, systemic embolization; TREATMENT for venous thrombosis and/or pulmonary embolus.HIGH RISK: Target INR is 2.5-3.5 for patients with mechanical heart valves.CBC W/PLT COUNT & AUTO DIFFERENTIAL 2021-06-15 04:46:52 Test Item Value Reference Range Interpretation Comments WHITE BLOOD CELL COUNT (BEAKER) 3.0 K/ L 3.5-10.5 L (test code = 775) RED BLOOD CELL COUNT (BEAKER) 2.51 M/ L 3.93-5.22 L (test code = 761) HEMOGLOBIN (BEAKER) (test code = 7.8 GM/DL 11.2-15.7 L 410) HEMATOCRIT (BEAKER) (test code = 25.2 % 34.1-44.9 L 411) MEAN CORPUSCULAR VOLUME (BEAKER) 100.4 fL 79.4-94.8 H (test code = 753) MEAN CORPUSCULAR HEMOGLOBIN 31.1 pg 25.6-32.2 (BEAKER) (test code = 751) MEAN CORPUSCULAR HEMOGLOBIN CONC 31.0 GM/DL 32.2-35.5 L (BEAKER) (test code = 752) RED CELL DISTRIBUTION WIDTH 16.2 % 11.7-14.4 H (BEAKER) (test code = 412) PLATELET COUNT (BEAKER) (test code 88 K/CU MM 150-450 L = 756) MEAN PLATELET VOLUME (BEAKER) 10.8 fL 9.4-12.3 (test code = 754) NUCLEATED RED BLOOD CELLS (BEAKER) 0 /100 WBC 0-0 (test code = 413) NEUTROPHILS RELATIVE PERCENT 59 % (BEAKER) (test code = 429) LYMPHOCYTES RELATIVE PERCENT 23 % (BEAKER) (test code = 430) MONOCYTES RELATIVE PERCENT 12 % (BEAKER) (test code = 431) EOSINOPHILS RELATIVE PERCENT 4 % (BEAKER) (test code = 432) BASOPHILS RELATIVE PERCENT 1 % (BEAKER) (test code = 437) NEUTROPHILS ABSOLUTE COUNT 1.79 K/ L 1.56-6.13 (BEAKER) (test code = 670) LYMPHOCYTES ABSOLUTE COUNT 0.70 K/ L 1.18-3.74 L (BEAKER) (test code = 414) MONOCYTES ABSOLUTE COUNT (BEAKER) 0.36 K/ L 0.24-0.36 (test code = 415) EOSINOPHILS ABSOLUTE COUNT 0.11 K/ L 0.04-0.36 (BEAKER) (test code = 416) BASOPHILS ABSOLUTE COUNT (BEAKER) 0.04 K/ L 0.01-0.08 (test code = 417) IMMATURE GRANULOCYTES-RELATIVE 1 % 0-1 PERCENT (BEAKER) (test code = 2801) POCT-GLUCOSE [id number] 11:21:11 Test Item Value Reference Range Interpretation Comments POC-GLUCOSE METER 204 mg/dL 70-110 H : TESTED A T [facility] 6720 (BEAKER) (test code = [facility], 1538) 29987: [employer]/Techni kelle ID = [id number] for Meeta Mcfarlane POCT-GLUCOSE [id number] 07:42:50 Test Item Value Reference Range Interpretation Comments POC-GLUCOSE METER 226 mg/dL 70-110 H : TESTED A T [facility] 6720 (BEAKER) (test code = [facility], 1538) 53129: [employer] Associate/Techni kelle ID = [id number] for Meeta Mcfarlane BASIC METABOLIC [id number] 05:13:30 Test Item Value Reference Range Interpretation Comments SODIUM (BEAKER) 136 meq/L 136-145 (test code = 381) POTASSIUM (BEAKER) 4.0 meq/L 3.5-5.1 (test code = 379) CHLORIDE (BEAKER) 104 meq/L 98-107 (test code = 382) CO2 (BEAKER) (test 22 meq/L 22-29 code = 355) BLOOD UREA NITROGEN 17 mg/dL 7-21 (BEAKER) (test code = 354) CREATININE (BEAKER) 4.41 mg/dL 0.57-1.25 H (test code = 358) GLUCOSE RANDOM 235 mg/dL 70-105 H (BEAKER) (test code = 652) CALCIUM (BEAKER) 8.3 mg/dL 8.4-10.2 L (test code = 697) EGFR (BEAKER) (test 10 mL/min/1.73 ESTIMA LEVI GFR IS code = 1092) sq m NOT ACCURATE CREATININE CLEARANCE IN PREDICTING GLOMERULAR FILTRATION RATE . ESTIMATED GFR I S NOT APPLICABLE FOR DIALYSIS PATIEN TS. [employer] ID - PIKEZIA [id number] 05:11:53 Test Item Value Reference Range Interpretation Comments PHOSPHORUS (BEAKER) (test code = 3.3 mg/dL 2.3-4.7 604) [employer] ID - LIANA [id number] 05:11:52 Test Item Value Reference Range Interpretation Comments MAGNESIUM (BEAKER) (test code = 2.0 mg/dL 1.6-2.6 627) [employer] ID - PIAYA LCBC W/PLT COUNT & AUTO [id number] 04:23:17 Test Item Value Reference Range Interpretation Comments WHITE BLOOD CELL COUNT (BEAKER) 3.3 K/ L 3.5-10.5 L (test code = 775) RED BLOOD CELL COUNT (BEAKER) 2.57 M/ L 3.93-5.22 L (test code = 761) HEMOGLOBIN (BEAKER) (test code = 7.9 GM/DL 11.2-15.7 L 410) HEMATOCRIT (BEAKER) (test code = 25.4 % 34.1-44.9 L 411) MEAN CORPUSCULAR VOLUME (BEAKER) 98.8 fL 79.4-94.8 H (test code = 753) MEAN CORPUSCULAR HEMOGLOBIN 30.7 pg 25.6-32.2 (BEAKER) (test code = 751) MEAN CORPUSCULAR HEMOGLOBIN CONC 31.1 GM/DL 32.2-35.5 L (BEAKER) (test code = 752) RED CELL DISTRIBUTION WIDTH 16.4 % 11.7-14.4 H (BEAKER) (test code = 412) PLATELET COUNT (BEAKER) (test code 81 K/CU MM 150-450 L = 756) MEAN PLATELET VOLUME (BEAKER) 10.8 fL 9.4-12.3 (test code = 754) NUCLEATED RED BLOOD CELLS (BEAKER) 0 /100 WBC 0-0 (test code = 413) NEUTROPHILS RELATIVE PERCENT 56 % (BEAKER) (test code = 429) LYMPHOCYTES RELATIVE PERCENT 24 % (BEAKER) (test code = 430) MONOCYTES RELATIVE PERCENT 16 % (BEAKER) (test code = 431) EOSINOPHILS RELATIVE PERCENT 2 % (BEAKER) (test code = 432) BASOPHILS RELATIVE PERCENT 1 % (BEAKER) (test code = 437) NEUTROPHILS ABSOLUTE COUNT 1.86 K/ L 1.56-6.13 (BEAKER) (test code = 670) LYMPHOCYTES ABSOLUTE COUNT 0.80 K/ L 1.18-3.74 L (BEAKER) (test code = 414) MONOCYTES ABSOLUTE COUNT (BEAKER) 0.54 K/ L 0.24-0.36 H (test code = 415) EOSINOPHILS ABSOLUTE COUNT 0.08 K/ L 0.04-0.36 (BEAKER) (test code = 416) BASOPHILS ABSOLUTE COUNT (AKER) 0.04 K/ L 0.01-0.08 (test code = 417) IMMATURE GRANULOCYTES-RELATIVE 1 % 0-1 PERCENT (BEAKER) (test code = 2801) POCT-GLUCOSE [id number] 17:21:48 Test Item Value Reference Range Interpretation Comments POC-GLUCOSE METER 209 mg/dL 70-110 H : TESTED A T [facility] 6720 (AKER) (test code = [facility], 1538) 07310: [employer] Associate/Techni kelle ID = [id number] for PADMINI ALMANZAR POCT-GLUCOSE [id number] 12:56:45 Test Item Value Reference Range Interpretation Comments POC-GLUCOSE METER 81 mg/dL 70-110 : TESTED A T [facility] 6720 (AKER) (test code = [facility], 1538) 25752: [employer] Associate/Techni kelle ID = [id number] for PADMINI GRAY [id number] 09:21:04 Test Item Value Reference Range Interpretation Comments Ferritin (test code = 1418.54 ng/mL 5.00-275.00 H 2276-4) BRANDI (test code = BRANDI) [employer] ID - HIEN Lab Interpretation (test Abnormal code = 98355-0) [facility]:21:04 Test Item Value Reference Range Interpretation Comments Ferritin (test code = 1418.54 ng/mL 5.00-275.00 H 2276-4) BRANDI (test code = BRANDI) [employer] ID - HIEN Lab Interpretation (test Abnormal code = 83932-6) [facility] 09:21:04 Test Item Value Reference Range Interpretation Comments Ferritin (test code = 1418.54 ng/mL 5.00-275.00 H 2276-4) BRANDI (test code = BRANDI) [employer] ID - HIEN M Lab Interpretation (test Abnormal code = 05222-6) [facility] 09:21:04 Test Item Value Reference Range Interpretation Comments Ferritin (test code = 1418.54 ng/mL 5.00-275.00 H 2276-4) BRANDI (test code = BRANDI) [employer] ID - HIEN M Lab Interpretation (test Abnormal code = 20344-9) [facility] 09:21:04 Test Item Value Reference Range Interpretation Comments Ferritin (test code = 1418.54 ng/mL 5.00-275.00 H 2276-4) BRANDI (test code = BRANDI) [employer] ID - HIEN M Lab Interpretation (test Abnormal code = 79832-4) [facility] 09:21:04 Test Item Value Reference Range Interpretation Comments Ferritin (test code = 1418.54 ng/mL 5.00-275.00 H 2276-4) BRANDI (test code = BRANDI) [employer] ID - HIEN M Lab Interpretation (test Abnormal code = 64435-8) [facility] 09:21:04 Test Item Value Reference Range Interpretation Comments Ferritin (test code = 1418.54 ng/mL 5.00-275.00 H 2276-4) BRANDI (test code = BRANDI) [employer] ID - HIEN M Lab Interpretation (test Abnormal code = 99866-8) [facility] 09:21:04 Test Item Value Reference Range Interpretation Comments Ferritin (test code = 1418.54 ng/mL 5.00-275.00 H 2276-4) BRANDI (test code = BRANDI) [employer] ID - HIEN M Lab Interpretation (test Abnormal code = 76244-2) [facility] 09:21:04 Test Item Value Reference Range Interpretation Comments Ferritin (test code = 1418.54 ng/mL 5.00-275.00 H 2276-4) BRANDI (test code = BRANDI) [employer] ID - HIEN M Lab Interpretation (test Abnormal code = 67381-7) [facility] 09:21:04 Test Item Value Reference Range Interpretation Comments Ferritin (test code = 1418.54 ng/mL 5.00-275.00 H 2276-4) BRANDI (test code = BRANDI) [employer] ID - HIEN M Lab Interpretation (test Abnormal code = 38795-5) [facility] 09:21:04 Test Item Value Reference Range Interpretation Comments FERRITIN (BEAKER) (test code = 1418.54 ng/mL 5.00-275.00 H 361) [employer] NORAH Bridges, TIBC, % sat. (without ferritin)2021-06-13 09:01:39 Test Item Value Reference Range Interpretation Comments Iron (test code = 2498-4) 75.0 ug/dL 40.0-160.0 TIBC (test code = 2500-7) 145 ug/dL 250-450 L Iron % Saturation (test 52 % 20-55 code = 2502-3) BRANDI (test code = BRANDI) [employer] ID - HIEN Hernandes Lab Interpretation (test Abnormal code = 53160-4) [facility], TIBC, % sat. (without ferritin)2021-06-13 09:01:39 Test Item Value Reference Range Interpretation Comments Iron (test code = 2498-4) 75.0 ug/dL 40.0-160.0 TIBC (test code = 2500-7) 145 ug/dL 250-450 L Iron % Saturation (test 52 % 20-55 code = 2502-3) BRANDI (test code = BRANDI) [employer] ID - HIEN Hernandes Lab Interpretation (test Abnormal code = 91790-2) [facility], TIBC, % sat. (without ferritin)2021-06-13 09:01:39 Test Item Value Reference Range Interpretation Comments Iron (test code = 2498-4) 75.0 ug/dL 40.0-160.0 TIBC (test code = 2500-7) 145 ug/dL 250-450 L Iron % Saturation (test 52 % 20-55 code = 2502-3) BRANDI (test code = BRANDI) [employer] ID - HIEN Hernandes Lab Interpretation (test Abnormal code = 79054-0) [facility], TIBC, % sat. (without ferritin)2021-06-13 09:01:39 Test Item Value Reference Range Interpretation Comments Iron (test code = 2498-4) 75.0 ug/dL 40.0-160.0 TIBC (test code = 2500-7) 145 ug/dL 250-450 L Iron % Saturation (test 52 % 20-55 code = 2502-3) BRANDI (test code = BRANDI) [employer] ID - HIEN M Lab Interpretation (test Abnormal code = 00529-7) [facility], TIBC, % sat. (without ferritin)2021-06-13 09:01:39 Test Item Value Reference Range Interpretation Comments Iron (test code = 2498-4) 75.0 ug/dL 40.0-160.0 TIBC (test code = 2500-7) 145 ug/dL 250-450 L Iron % Saturation (test 52 % 20-55 code = 2502-3) BRANDI (test code = BRANDI) [employer] ID - HIEN M Lab Interpretation (test Abnormal code = 22701-0) [facility], TIBC, % sat. (without ferritin)2021-06-13 09:01:39 Test Item Value Reference Range Interpretation Comments Iron (test code = 2498-4) 75.0 ug/dL 40.0-160.0 TIBC (test code = 2500-7) 145 ug/dL 250-450 L Iron % Saturation (test 52 % 20-55 code = 2502-3) BRANDI (test code = BRANDI) [employer] ID - HIEN M Lab Interpretation (test Abnormal code = 31325-7) [facility], TIBC, % sat. (without ferritin)2021-06-13 09:01:39 Test Item Value Reference Range Interpretation Comments Iron (test code = 2498-4) 75.0 ug/dL 40.0-160.0 TIBC (test code = 2500-7) 145 ug/dL 250-450 L Iron % Saturation (test 52 % 20-55 code = 2502-3) BRANDI (test code = BRANDI) [employer] ID - HIEN M Lab Interpretation (test Abnormal code = 32688-3) [facility], TIBC, % sat. (without ferritin)2021-06-13 09:01:39 Test Item Value Reference Range Interpretation Comments Iron (test code = 2498-4) 75.0 ug/dL 40.0-160.0 TIBC (test code = 2500-7) 145 ug/dL 250-450 L Iron % Saturation (test 52 % 20-55 code = 2502-3) BRANDI (test code = BRANDI) [employer] ID - HIEN M Lab Interpretation (test Abnormal code = 84033-0) [facility], TIBC, % sat. (without ferritin)2021-06-13 09:01:39 Test Item Value Reference Range Interpretation Comments Iron (test code = 2498-4) 75.0 ug/dL 40.0-160.0 TIBC (test code = 2500-7) 145 ug/dL 250-450 L Iron % Saturation (test 52 % 20-55 code = 2502-3) BRANDI (test code = BRANDI) [employer] Associate ID Bassam Hernandes Lab Interpretation (test Abnormal code = 94942-4) [facility], TIBC, % sat. (without ferritin)2021-06-13 09:01:39 Test Item Value Reference Range Interpretation Comments Iron (test code = 2498-4) 75.0 ug/dL 40.0-160.0 TIBC (test code = 2500-7) 145 ug/dL 250-450 L Iron % Saturation (test 52 % 20-55 code = 2502-3) BRANDI (test code = BRANDI) [employer] NORAH Hernandes Lab Interpretation (test Abnormal code = 58893-5) [facility], TIBC, % SAT. (WITHOUT FERRITIN)2021-06-13 09:01:39 Test Item Value Reference Range Interpretation Comments IRON (BEAKER) (test code = 547) 75.0 ug/dL 40.0-160.0 TOTAL IRON BINDING CAPACITY 145 ug/dL 250-450 L (BEAKER) (test code = 769) IRON % SATURATION (2) (BEAKER) 52 % 20-55 (test code = 2590) [employer] NORAH STANFORD MPOCT-GLUCOSE [id number] 08:51:07 Test Item Value Reference Range Interpretation Comments POC-GLUCOSE METER 106 mg/dL 70-110 : [facility] ([facility]ER[facility] (test code = [facility], 1538) 90841: [employer] Associate/Techni kelle ID = [id number] for PADMINI ALMANZAR BASIC METABOLIC [id number] 04:21:54 Test Item Value Reference Range Interpretation Comments SODIUM (BEAKER) 140 meq/L 136-145 (test code = 381) POTASSIUM (BEAKER) 3.5 meq/L 3.5-5.1 (test code = 379) CHLORIDE (BEAKER) 104 meq/L 98-107 (test code = 382) CO2 (BEAKER) (test 24 meq/L 22-29 code = 355) BLOOD UREA NITROGEN 8 mg/dL 7-21 (BEAKER) (test code = 354) CREATININE (BEAKER) 2.78 mg/dL 0.57-1.25 H (test code = 358) GLUCOSE RANDOM 100 mg/dL 70-105 (BEAKER) (test code = 652) CALCIUM (BEAKER) 8.9 mg/dL 8.4-10.2 (test code = 697) EGFR (BEAKER) (test 17 mL/min/1.73 ESTIMA LEVI GFR IS code = 1092) sq m NOT ACCURATE CREATININE CLEARANCE IN PREDICTING GLOMERULAR FILTRATION RATE . ESTIMATED GFR I S NOT APPLICABLE FOR DIALYSIS PATIEN TS. [employer] Associate ID - HIEN [id number] 04:17:34 Test Item Value Reference Range Interpretation Comments MAGNESIUM (BEAKER) (test code = 2.0 mg/dL 1.6-2.6 627) [employer] ID - HIEN [id number] 04:17:34 Test Item Value Reference Range Interpretation Comments PHOSPHORUS (BEAKER) (test code = 3.1 mg/dL 2.3-4.7 604) [employer] ID - HIEN MCBC W/PLT COUNT & AUTO [id number] 03:49:10 Test Item Value Reference Range Interpretation Comments WHITE BLOOD CELL COUNT (BEAKER) 3.4 K/ L 3.5-10.5 L (test code = 775) RED BLOOD CELL COUNT (BEAKER) 2.81 M/ L 3.93-5.22 L (test code = 761) HEMOGLOBIN (BEAKER) (test code = 8.6 GM/DL 11.2-15.7 L 410) HEMATOCRIT (BEAKER) (test code = 27.8 % 34.1-44.9 L 411) MEAN CORPUSCULAR VOLUME (BEAKER) 98.9 fL 79.4-94.8 H (test code = 753) MEAN CORPUSCULAR HEMOGLOBIN 30.6 pg 25.6-32.2 (BEAKER) (test code = 751) MEAN CORPUSCULAR HEMOGLOBIN CONC 30.9 GM/DL 32.2-35.5 L (BEAKER) (test code = 752) RED CELL DISTRIBUTION WIDTH 16.0 % 11.7-14.4 H (BEAKER) (test code = 412) PLATELET COUNT (BEAKER) (test code 83 K/CU MM 150-450 L = 756) MEAN PLATELET VOLUME (BEAKER) 11.4 fL 9.4-12.3 (test code = 754) NUCLEATED RED BLOOD CELLS (BEAKER) 0 /100 WBC 0-0 (test code = 413) NEUTROPHILS RELATIVE PERCENT 63 % (BEAKER) (test code = 429) LYMPHOCYTES RELATIVE PERCENT 20 % (BEAKER) (test code = 430) MONOCYTES RELATIVE PERCENT 13 % (BEAKER) (test code = 431) EOSINOPHILS RELATIVE PERCENT 3 % (BEAKER) (test code = 432) BASOPHILS RELATIVE PERCENT 1 % (BEAKER) (test code = 437) NEUTROPHILS ABSOLUTE COUNT 2.14 K/ L 1.56-6.13 (BEAKER) (test code = 670) LYMPHOCYTES ABSOLUTE COUNT 0.66 K/ L 1.18-3.74 L (BEAKER) (test code = 414) MONOCYTES ABSOLUTE COUNT (BEAKER) 0.43 K/ L 0.24-0.36 H (test code = 415) EOSINOPHILS ABSOLUTE COUNT 0.09 K/ L 0.04-0.36 (BEAKER) (test code = 416) BASOPHILS ABSOLUTE COUNT (BEAKER) 0.04 K/ L 0.01-0.08 (test code = 417) IMMATURE GRANULOCYTES-RELATIVE 1 % 0-1 PERCENT (BEAKER) (test code = 2801) SARS-COV2/RT-PCR ([facility])2021-06-13 02:28:08 Test Item Value Reference Range Interpretation Comments SARS-COV2/RT-PCR (test code = Negative Negative [id number]) Negative result for this test determines that SARS-CoV-2 RNA was not present in the specimen above the Limit of Detection (LOD). However, Negative results do not preclude SARS-CoV-2 infection and should not be used as the sole basis for treatment or patient management decisions. Negative results must be combined with clinical observations, patient history, and epidemiological information. A false negative result may occur if a specimen is improperly collected, transported, or handled. A false negative result should be considered if patient's recent exposures or clinical presentation indicate that COVID-19 (SARS-CoV-2) is likely and diagnostic tests for other causes of illness are negative. Re-testing should be considered in cases of suspected false negatives.The limit of detection for this assay is 100 copies/mL.This SARS-CoV-2 test is a real-time RT_PCR test intended for the qualitative detection of nucleic acid from SARS-CoV-2 in a nasopharyngeal swab specimen collected from individuals suspected of COVID-19 by their healthcare provider.This test has not been Food and Drug Administration (FDA) cleared or approved. This is a modified version of an approved Emergency Use Authorization (EUA) and is in the process of review by the FDA. Once authorized by the FDA, the issued EUA will be e ffective until the declaration that circumstances exist justifying the authorization of the emergency use of in vitro diagnostic tests for detection and/or diagnosis of COVID-19 is terminated under Section 564(b)(2) of the Act or the EUA is revoked under Section 564(g) of the Act.Testing was performedusing the [place] SARS-CoV-2 assay.Fact Sheet for Healthcare Providers:https://www.[employer].nj/ct/RT SARS-CoV-2 HCP Fact Sheet 51- 956823.pdfFact Sheet for Healthcare Patients:https://www.[employer].nj/ct/RT SARS-CoV-2 Patient Fact Sheet EN 51-176477I3.pdfPOCT-GLUCOSE [id number] 02:01:02 Test Item Value Reference Range Interpretation Comments POC-GLUCOSE METER 98 mg/dL 70-110 : TESTED A T [facility] 6720 (SmartExposee) (test code = [facility], 1538) [id number]: [employer] Associate/Techni kelle ID = [id number] for SREEKANTH ROSS POCT-GLUCOSE [id number] 02:00:06 Test Item Value Reference Range Interpretation Comments POC-GLUCOSE METER 151 mg/dL 70-110 H : TESTED A T [facility] 6720 (ColoWrapAKER) (test code = [facility], 1538) [id number]: [employer] Services Program Associate/Techni kelle ID = [id number] for LL CECY LEA BLOOD [id number] 23:01:20 Test Item Value Reference Range Interpretation Comments CULTURE (BEAKER) (test No growth in 5 days code = 1095) BLOOD [id number] 23:01:19 Test Item Value Reference Range Interpretation Comments CULTURE (BEAKER) (test No growth in 5 days code = 1095) CT, BRAIN, WITHOUT [id number] 08:55:00Unlisted Reason for Exam - Click Yes and Enter Reason Below->No [facility] : 1955 Sex: FFINAL REPORT CT Head without contrast CLINICAL HISTORY: Subarachnoid hemorrhage (SAH) suspected TECHNIQUE: Contiguous axial CT images through the head without contrast. This exam was performed according to the departmental dose optimization program which includes automated exposure control, adjustment of the mA and/or kV according to the patient size, and/or use of an iterative reconstruction technique. COMPARISON: 06/12/2021 FINDINGS: Scattered right cerebral subarachnoid hemorrhage is grossly unchanged. There is no CT evidence for acute infarct. There is mild periventricular and subcortical white matter hypodensity which is nonspecific but compatible with chronicmicrovascular ischemic disease. There is mild atherosclerotic calcification of the intracranial circulation. There is mild generalized sulcal prominence without hydrocephalus, midline shift, or apparent mass effect. There are no extra-axial fluid collections. The skull is intact. The visualized paranasal sinuses are well-aerated. IMPRESSION: Scattered right cerebral subarachnoid hemorrhage is grossly unchanged. Signed: Fadia Cain MDReport Verified Date/Time: 06/12/2021 08:55:52 Reading Location: [address] Neuro Reading Room POCT- GLUCOSE [id number] 07:42:49 Test Item Value Reference Range Interpretation Comments POC-GLUCOSE METER 113 mg/dL 70-110 H : TESTED A T [facility] 6720 (BEAKER) (test code = [facility], 1538) [id number]: [employer] Services Program Associate/Techni kelle ID = [id number] for Sheryl Enciso POCT-GLUCOSE [id number] 07:42:05 Test Item Value Reference Range Interpretation Comments POC-GLUCOSE METER 131 mg/dL 70-110 H : TESTED A T [facility] 6720 (BEAKER) (test code = [facility], 1538) [id number]: University Services Program Associate/Techni kelle ID = [id number] for JI MONTAÑO POCT-GLUCOSE [id number] 07:32:16 Test Item Value Reference Range Interpretation Comments POC-GLUCOSE METER 127 mg/dL 70-110 H : TESTED A T [facility] 6720 (BEAKER) (test code = [facility], 1538) 27150: [employer] Services Program Associate/Techni kelle ID = [id number] for GURINDER VILLA CT, CTANGIO [id number] 03:03:00Reason for exam:->Symptoms onset less than 6 hours and NIHSS 6 or greater [facility] 1955 Sex: FFINAL REPORT CLINICAL HISTORY: Unlisted Reason for ExamSymptoms onset less than 6 hours and NIHSS 6 or greater TECHNIQUE: Contiguous contrast-enhanced axial images through the neck followed by axial images through the head with coronal and sagittal reformations to assess the arterial circulation. 3-D reconstructions were performed using a volume rendered technique separately on a workstation. This exam was performed according to the departmental dose optimization program which includes automated exposure control, adjustment of the mA and/or kV according to the patient size, and/or use of an iterative reconstruction technique. COMPARISON: None FINDINGS: The CT angiogram images of the head reveal no evidence of intracranial aneurysm, focal stenosis, or proximal branch vessel occlusion. Mild stenosis of the proximal left intradural vertebral artery due to atherosclerosis. The right intradural vertebral and basilar arteries are patent. origin of the right posterior cerebral artery with patent right posterior to indicating artery. The bilateral posterior cere bral and posterior communicating arteries are patent. Atherosclerotic calcifications of the bilateral carotid siphons resulting in moderate stenosis of the supraclinoid segment. Bilateral anterior andmiddle cerebral arteries are patent.The major intradural venous sinuses are patent. The carotid arteries in the neck are patent including their bifurcations. There is 40% stenosis of the proximal leftinternal carotid artery by NASCET criteria. Atherosclerotic calcifications of the right carotid bifurcation however no flow limiting stenosis. The vertebral arteries in the neck are patent including their origins. There are dorsal spondylitic changes in the cervical spine. Collapse of the C6 vertebral body with erosive endplate changes of C6-C7, age indeterminate, however no significant prevertebralsoft tissue changes. Postsurgical changes of a median sternotomy. There are scattered subcentimeter lymph nodes in the neck. Large right pleural effusion. Intralobular septal thickening in the bilateral lungs suggestive of interstitial pulmonary edema. Postsurgical changes of a prior CABG. Right chestwall pacer device with leads coursing below the inferior margin of the film. IMPRESSION: No evidenceof a wainwright of Pandey proximal branch vessel occlusion or intracranial aneurysm. Intracranial atherosclerosis worse in the carotid siphons were there is moderate stenosis. No evidence of hemodynamically significant stenosis in the right cervical carotid or vertebral arteries by NASCET criteria. There is 40% stenosis of the proximal left internal carotid artery by NASCET criteria. Collapse of the C6 vertebral body with erosive endplate changes of C6-C7, age indeterminate, however no significant prevertebral soft tissue changes. Correlate clinically and consider further evaluation with MRI if indicated. Large right pleural effusion and interstitial pulmonary edema. Signed: Nikole Baron [facility] Verified Date/Time: 06/12/2021 03:03:56 CT, CAROTID, [id number] 03:03:00Reason for exam:- >Symptoms onset less than 6 hours and NIHSS 6 or greater [facility] : 1955 Sex: FFINAL REPORT CLINICAL HISTORY: Unlisted Reason for ExamSymptoms onset less than 6 hours and NIHSS 6 or greater TECHNIQUE: Contiguous contrast-enhanced axial images through the neck followed by axial images through the head with coronal and sagittal reformations to assess the arterial circulation. 3-D reconstructions were performed using a volume rendered technique separately on a workstation. This exam was performed according to the departmental dose optimization program which includes automated exposure control, adjustment of the mA and/or kV according to the patient size, and/or use of an iterative reconstruction technique. COMPARISON: None FINDINGS: The CT angiogram images of the head reveal no evidence of intracranial aneurysm, focal stenosis, or proximal branch vessel occlusion. Mild stenosis of the proximal left intradural vertebral artery due to atherosclerosis. The right intradural vertebral and basilar arteries are patent. origin of the right posterior cerebral artery with patent right posterior to indicating artery. The bilateral posterior cere bral and posterior communicating arteries are patent. Atherosclerotic calcifications of the bilateral carotid siphons resulting in moderate stenosis of the supraclinoid segment. Bilateral anterior andmiddle cerebral arteries are patent.The major intradural venous sinuses are patent. The carotid arteries in the neck are patent including their bifurcations. There is 40% stenosis of the proximal leftinternal carotid artery by NASCET criteria. Atherosclerotic calcifications of the right carotid bifurcation however no flow limiting stenosis. The vertebral arteries in the neck are patent including their origins. There are dorsal spondylitic changes in the cervical spine. Collapse of the C6 vertebral body with erosive endplate changes of C6-C7, age indeterminate, however no significant prevertebralsoft tissue changes. Postsurgical changes of a median sternotomy. There are scattered subcentimeter lymph nodes in the neck. Large right pleural effusion. Intralobular septal thickening in the bilateral lungs suggestive of interstitial pulmonary edema. Postsurgical changes of a prior CABG. Right chestwall pacer device with leads coursing below the inferior margin of the film. IMPRESSION: No evidenceof a wainwright of Pandey proximal branch vessel occlusion or intracranial aneurysm. Intracranial atherosclerosis worse in the carotid siphons were there is moderate stenosis. No evidence of hemodynamically significant stenosis in the right cervical carotid or vertebral arteries by NASCET criteria. There is 40% stenosis of the proximal left internal carotid artery by NASCET criteria. Collapse of the C6 vertebral body with erosive endplate changes of C6-C7, age indeterminate, however no significant prevertebral soft tissue changes. Correlate clinically and consider further evaluation with MRI if indicated. Large right pleural effusion and interstitial pulmonary edema. Signed: [facility] Verified Date/Time: 06/12/2021 03:03:56 PROTHROMBIN TIME/[id number] 01:46:16 Test Item Value Reference Range Interpretation Comments PROTIME (BEAKER) 15.0 seconds 11.9-14.2 H (test code = 759) INR (BEAKER) (test 1.20 See_Comment [Automat ed message] code = 370) The system [employer] management generated this result transmitted ref erence range: <=5.90. The reference range was not used to int erpret this result as normal/abnormal . RECOMMENDED COUMADIN/WARFARIN INR THERAPY RANGESSTANDARD DOSE: 2.0 - 3.0 Includes: PROPHYLAXIS forvenous thrombosis, systemic embolization; TREATMENT for venous thrombosis and/or pulmonary embolus.HIGH RISK: Target INR is 2.5-3.5 for patients with mechanical heart valves.CBC W/PLT COUNT & AUTO DIFFERENTIAL 2021-06-12 01:45:34 Test Item Value Reference Range Interpretation Comments WHITE BLOOD CELL COUNT (BEAKER) 3.5 K/ L 3.5-10.5 (test code = 775) RED BLOOD CELL COUNT (BEAKER) 3.04 M/ L 3.93-5.22 L (test code = 761) HEMOGLOBIN (BEAKER) (test code = 9.4 GM/DL 11.2-15.7 L 410) HEMATOCRIT (BEAKER) (test code = 29.9 % 34.1-44.9 L 411) MEAN CORPUSCULAR VOLUME (BEAKER) 98.4 fL 79.4-94.8 H (test code = 753) MEAN CORPUSCULAR HEMOGLOBIN 30.9 pg 25.6-32.2 (BEAKER) (test code = 751) MEAN CORPUSCULAR HEMOGLOBIN CONC 31.4 GM/DL 32.2-35.5 L (BEAKER) (test code = 752) RED CELL DISTRIBUTION WIDTH 15.9 % 11.7-14.4 H (BEAKER) (test code = 412) PLATELET COUNT (BEAKER) (test code 81 K/CU MM 150-450 L = 756) MEAN PLATELET VOLUME (BEAKER) 11.3 fL 9.4-12.3 (test code = 754) NUCLEATED RED BLOOD CELLS (BEAKER) 0 /100 WBC 0-0 (test code = 413) NEUTROPHILS RELATIVE PERCENT 55 % (BEAKER) (test code = 429) LYMPHOCYTES RELATIVE PERCENT 25 % (BEAKER) (test code = 430) MONOCYTES RELATIVE PERCENT 18 % (BEAKER) (test code = 431) EOSINOPHILS RELATIVE PERCENT 2 % (BEAKER) (test code = 432) BASOPHILS RELATIVE PERCENT 1 % (BEAKER) (test code = 437) NEUTROPHILS ABSOLUTE COUNT 1.90 K/ L 1.56-6.13 (BEAKER) (test code = 670) LYMPHOCYTES ABSOLUTE COUNT 0.85 K/ L 1.18-3.74 L (BEAKER) (test code = 414) MONOCYTES ABSOLUTE COUNT (BEAKER) 0.61 K/ L 0.24-0.36 H (test code = 415) EOSINOPHILS ABSOLUTE COUNT 0.07 K/ L 0.04-0.36 (BEAKER) (test code = 416) BASOPHILS ABSOLUTE COUNT (BEAKER) 0.03 K/ L 0.01-0.08 (test code = 417) IMMATURE GRANULOCYTES-RELATIVE 0 % 0-1 PERCENT (BEAKER) (test code = 2801) CT, BRAIN, WITHOUT [id number] 01:38:00Unlisted Reason for Exam - Click Yes and Enter Reason Below->No [facility] : 1955 Sex: FFINAL REPORT CT Head without contrast CLINICAL HISTORY: Stroke susp ected (Ped 0-18y) TECHNIQUE: Contiguous axial images through the head without contrast. This exam was performed according to the departmental dose optimization program which includes automated exposurecontrol, adjustment of the mA and/or kV according to the patient size, and/or use of an iterative rec onstruction technique. COMPARISON: None FINDINGS: There is no CT evidence of acute infarct . Scattered areas of subarachnoid hyperdensity consistent with trace subarachnoid hemorrhage within the rightcerebral hemisphere. There is thin hyperdensity layering along the right aspect of the falx and right tentorial leaflet concerning for trace subdural hematoma. No significant mass effect on adjacent structures. No midline shift. There is periventricular and subcortical white matter hypodensity which is nonspecific but compatible with chronic microvascular ischemic change. There are atherosclerotic calcifications of the intracranial circulation. There is generalized parenchymal volume loss without hydrocephalus . Basilar cisterns are patent. The skull is intact. The visualized paranasal sinuses are well-aerated. Intraorbital contents are unremarkable. IMPRESSION: No CT evidence of acute infarct. A subarachnoid hemorrhage in the right cerebral hemisphere. Trace subdural hematoma along the rightaspect of the falx and right tentorial leaflet. NOTIFICATION: The significant results of this study were discussed with and acknowledged by in house neurology resident, by telephone on 06/12/2021 1:38 AM. Signed: Nikole Baron Verified Date/Time: 06/12/2021 01:38:35 High Sensitivity Troponin I ([facility]/Jin Only)2021-06-12 01:35:31 Test Item Value Reference Range Interpretation Comments Troponin I HS 231 pg/ml See_Comment H [Automated (test code = message] The 16371-3) system which generated this result transmitted reference range : <=17. The reference range was not used to interpret this result as normal/abnormal . BRANDI (test code = University Services Program Associate ID - BRANDI) DBThe CASING BLOWER STAT High Sensitivity Troponin-I results should be used in conjunction with other diagnostic information such as ECG, clinical observations and information, and patient symptoms to aid in the diagnosis of [place]. Lab Interpretation Abnormal (test code = 39739-9) [facility] Only) 2021-06-12 01:35:31 Test Item Value Reference Range Interpretation Comments Troponin I HS 231 pg/ml See_Comment H [Automated (test code = message] The 31292-3) system which generated this result transmitted reference range : <=17. The reference range was not used to interpret this result as normal/abnormal . BRANDI (test code = [employer] Services Program Associate ID - BRANDI) DBThe CASING BLOWER STAT High Sensitivity Troponin-I results should be used in conjunction with other diagnostic information such as ECG, clinical observations and information, and patient symptoms to aid in the diagnosis of [place]. Lab Interpretation Abnormal (test code = 80409-2) [facility] ([facility]in Only) 2021-06-12 01:35:31 Test Item Value Reference Range Interpretation Comments Troponin I HS 231 pg/ml See_Comment H [Automated (test code = message] The 97075-8) system which generated this result transmitted reference range : <=17. The reference range was not used to interpret this result as normal/abnormal . BRANDI (test code = [employer] Services Program Associate ID - BRANDI) DBThe CASING BLOWER STAT High Sensitivity Troponin-I results should be used in conjunction with other diagnostic information such as ECG, clinical observations and information, and patient symptoms to aid in the diagnosis of [place]. Lab Interpretation Abnormal (test code = 40401-4) [facility] 2021-06-12 01:35:31 Test Item Value Reference Range Interpretation Comments Troponin I HS 231 pg/ml See_Comment H [Automated (test code = message] The 34245-8) system which generated this result transmitted reference range : <=17. The reference range was not used to interpret this result as normal/abnormal . BRANDI (test code = University Services Program Associate ID - BRANDI) DBThe CASING BLOWER STAT High Sensitivity Troponin-I results should be used in conjunction with other diagnostic information such as ECG, clinical observations and information, and patient symptoms to aid in the diagnosis of [place]. Lab Interpretation Abnormal (test code = 17001-8) [facility] 2021-06-12 01:35:31 Test Item Value Reference Range Interpretation Comments Troponin I HS 231 pg/ml See_Comment H [Automated (test code = message] The 92651-6) system which generated this result transmitted reference range : <=17. The reference range was not used to interpret this result as normal/abnormal . BRANDI (test code = University Services Program Associate ID - BRANDI) DBThe CASING BLOWER STAT High Sensitivity Troponin-I results should be used in conjunction with other diagnostic information such as ECG, clinical observations and information, and patient symptoms to aid in the diagnosis of [place]. Lab Interpretation Abnormal (test code = 08375-1) [facility] ([facility] Only) 2021-06-12 01:35:31 Test Item Value Reference Range Interpretation Comments Troponin I HS 231 pg/ml See_Comment H [Automated (test code = message] The 78392-3) system which generated this result transmitted reference range : <=17. The reference range was not used to interpret this result as normal/abnormal . BRANDI (test code = University Services Program Associate ID - BRANDI) DBThe CASING BLOWER STAT High Sensitivity Troponin-I results should be used in conjunction with other diagnostic information such as ECG, clinical observations and information, and patient symptoms to aid in the diagnosis of [place]. Lab Interpretation Abnormal (test code = 14013-0) [facility] ([facility] 2021-06-12 01:35:31 Test Item Value Reference Range Interpretation Comments Troponin I HS 231 pg/ml See_Comment H [Automated (test code = message] The [employer]) system which generated this result transmitted reference range : <=17. The reference range was not used to interpret this result as normal/abnormal . BRANDI (test code = [employer] Services Program Associate ID - BRANDI) DBThe CASING BLOWER STAT High Sensitivity Troponin-I results should be used in conjunction with other diagnostic information such as ECG, clinical observations and information, and patient symptoms to aid in the diagnosis of [place]. Lab Interpretation Abnormal (test code = 55880-4) [facility] ([facility] Only[facility] 2021-06-12 01:35:31 Test Item Value Reference Range Interpretation Comments Troponin I HS 231 pg/ml See_Comment H [Automated (test code = message] The [employer]) system which generated this result transmitted reference range : <=17. The reference range was not used to interpret this result as normal/abnormal . BRANDI (test code = [employer] Services Program Associate ID - BRANDI) [employer] CASING BLOWER STAT High Sensitivity Troponin-I results should be used in conjunction with other diagnostic information such as ECG, clinical observations and information, and patient symptoms to aid in the diagnosis of [place]. Lab Interpretation Abnormal (test code = 92910-8) [facility] ([facility] Only) 2021-06-12 01:35:31 Test Item Value Reference Range Interpretation Comments Troponin I HS 231 pg/ml See_Comment H [Automated (test code = message] The [employer]) system which generated this result transmitted reference range : <=17. The reference range was not used to interpret this result as normal/abnormal . BRANDI (test code = [employer] Services Program Associate ID - BRANDI) [employer] CASING BLOWER STAT High Sensitivity Troponin-I results should be used in conjunction with other diagnostic information such as ECG, clinical observations and information, and patient symptoms to aid in the diagnosis of [place]. Lab Interpretation Abnormal (test code = 62807-5) [facility] ([facility] Only) 2021-06-12 01:35:31 Test Item Value Reference Range Interpretation Comments Troponin I HS 231 pg/ml See_Comment H [Automated (test code = message] The [employer]) system which generated this result transmitted reference range : <=17. The reference range was not used to interpret this result as normal/abnormal . BRANDI (test code = [employer] Services Program Associate ID - BRANDI) DBThe CASING BLOWER STAT High Sensitivity Troponin-I results should be used in conjunction with other diagnostic information such as ECG, clinical observations and information, and patient symptoms to aid in the diagnosis of [place]. Lab Interpretation Abnormal (test code = 39153-5) [facility] TROPONIN [id number] 01:35:31 Test Item Value Reference Range Interpretation Comments HIGH SENSITIVITY 231 pg/ml See_Comment H [Automated message] TROPONIN I (test code The sy stem which = 8090150) generated this result transmitted ref erence range: <=17. Th e reference range was not used to int erpret this result as normal/abnormal . [employer] Associate ID - DBThe CASING BLOWER STAT High Sensitivity Troponin-I results should be used in conjunctionwith other diagnostic information such as ECG, clinical observations and information, and patient symptoms to aid in the diagnosis of [place].BASIC METABOLIC [id number] 01:29:11 Test Item Value Reference Range Interpretation Comments SODIUM (BEAKER) 134 meq/L 136-145 L (test code = 381) POTASSIUM (BEAKER) 4.5 meq/L 3.5-5.1 Specimen slightly (test code = 379) hemolyzed CHLORIDE (BEAKER) 101 meq/L 98-107 (test code = 382) CO2 (BEAKER) (test 19 meq/L 22-29 L code = 355) BLOOD UREA NITROGEN 16 mg/dL 7-21 (BEAKER) (test code = 354) CREATININE (BEAKER) 4.24 mg/dL 0.57-1.25 H Specimen slightly (test code = 358) hemolyzed GLUCOSE RANDOM 114 mg/dL 70-105 H (BEAKER) (test code = 652) CALCIUM (BEAKER) 8.7 mg/dL 8.4-10.2 (test code = 697) EGFR (BEAKER) (test 11 mL/min/1.73 ESTIMA LEVI GFR IS code = 1092) sq m NOT ACCURATE CREATININE CLEARANCE IN PREDICTING GLOMERULAR FILTRATION RATE . ESTIMATED GFR I S NOT APPLICABLE FOR DIALYSIS PATIEN TS. [employer] ID - [id number] 01:28:34 Test Item Value Reference Range Interpretation Comments PHOSPHORUS (BEAKER) 4.6 mg/dL 2.3-4.7 Specimen slightly (test code = 604) hemolyzed [employer] ID - [id number] 01:28:33 Test Item Value Reference Range Interpretation Comments MAGNESIUM (BEAKER) 2.2 mg/dL 1.6-2.6 Specimen slightly (test code = 627) hemolyzed [employer] ID - DBLactic acid, [id number] 01:26:32 Test Item Value Reference Range Interpretation Comments Lactate, Venous (test code = 0.87 mmol/L 0.50-2.20 2872) BRANDI (test code = BRANDI) [employer] ID - DB Lab Interpretation (test Normal code = 77177-5) [facility] [id number] 01:26:32 Test Item Value Reference Range Interpretation Comments Lactate, Venous (test code = 0.87 mmol/L 0.50-2.20 2872) BRANDI (test code = BRANDI) [employer] ID - DB Lab Interpretation (test Normal code = 44706-2) [facility] [id number] 01:26:32 Test Item Value Reference Range Interpretation Comments Lactate, Venous (test code = 0.87 mmol/L 0.50-2.20 2872) BRANDI (test code = BRANDI) [employer] ID - DB Lab Interpretation (test Normal code = 98644-8) [facility] [id number] 01:26:32 Test Item Value Reference Range Interpretation Comments Lactate, Venous (test code = 0.87 mmol/L 0.50-2.20 2872) BRANDI (test code = BRANDI) [employer] ID - DB Lab Interpretation (test Normal code = 47027-5) [facility] [id number] 01:26:32 Test Item Value Reference Range Interpretation Comments Lactate, Venous (test code = 0.87 mmol/L 0.50-2.20 2872) BRANDI (test code = BRANDI) [employer] ID - DB Lab Interpretation (test Normal code = 84216-7) [facility] [id number] 01:26:32 Test Item Value Reference Range Interpretation Comments Lactate, Venous (test code = 0.87 mmol/L 0.50-2.20 2872) BRANDI (test code = BRANDI) [employer] ID - DB Lab Interpretation (test Normal code = 34870-8) [facility] [id number] 01:26:32 Test Item Value Reference Range Interpretation Comments Lactate, Venous (test code = 0.87 mmol/L 0.50-2.20 2872) BRANDI (test code = BRANDI) [employer] ID - DB Lab Interpretation (test Normal code = 69911-6) [facility] [id number] 01:26:32 Test Item Value Reference Range Interpretation Comments Lactate, Venous (test code = 0.87 mmol/L 0.50-2.20 2872) BRANDI (test code = BRANDI) [employer] ID - DB Lab Interpretation (test Normal code = 96313-1) [facility] [id number] 01:26:32 Test Item Value Reference Range Interpretation Comments Lactate, Venous (test code = 0.87 mmol/L 0.50-2.20 2872) BRANDI (test code = BRANDI) [employer] ID - DB Lab Interpretation (test Normal code = 73852-4) [facility] [id number] 01:26:32 Test Item Value Reference Range Interpretation Comments Lactate, Venous (test code = 0.87 mmol/L 0.50-2.20 2872) BRANDI (test code = BRANDI) [employer] ID - DB Lab Interpretation (test Normal code = 92073-2) [facility] [id number] 01:26:32 Test Item Value Reference Range Interpretation Comments LACTATE BLOOD VENOUS (2) (BEAKER) 0.87 mmol/L 0.50-2.20 (test code = 2872) [employer] ID - DBPOCT-GLUCOSE [id number] 16:24:28 Test Item Value Reference Range Interpretation Comments POC-GLUCOSE METER 244 mg/dL 70-110 H : TESTED A T [facility] 6720 (BEAKER) (test code = [place], 1538) [address]: [employer] Associate/Techni kelle ID = [id number] for Maranda Menjivar POCT-GLUCOSE [id number] 11:29:05 Test Item Value Reference Range Interpretation Comments POC-GLUCOSE METER 168 mg/dL 70-110 H : TESTED A T [facility] 6720 (BEAKER) (test code = [place], 1538) [address]: [employer] Associate/Techni kelle ID = [id number] for Maranda Menjivar POCT-GLUCOSE [id number] 06:45:50 Test Item Value Reference Range Interpretation Comments POC-GLUCOSE METER 132 mg/dL 70-110 H : TESTED A T [facility] 6720 (BEAKER) (test code = YUD[place], 1538) [address]: [employer] Associate/Techni kelle ID = [id number] for GHADA BECK BASIC METABOLIC [id number] 05:08:08 Test Item Value Reference Range Interpretation Comments SODIUM (BEAKER) 135 meq/L 136-145 L (test code = 381) POTASSIUM (BEAKER) 3.8 meq/L 3.5-5.1 (test code = 379) CHLORIDE (BEAKER) 100 meq/L 98-107 (test code = 382) CO2 (BEAKER) (test 25 meq/L 22-29 code = 355) BLOOD UREA NITROGEN 10 mg/dL 7-21 (BEAKER) (test code = 354) CREATININE (BEAKER) 2.84 mg/dL 0.57-1.25 H (test code = 358) GLUCOSE RANDOM 111 mg/dL 70-105 H (BEAKER) (test code = 652) CALCIUM (BEAKER) 8.6 mg/dL 8.4-10.2 (test code = 697) EGFR (BEAKER) (test 17 mL/min/1.73 ESTIMA LEVI GFR IS code = 1092) sq m NOT ACCURATE CREATININE CLEARANCE IN PREDICTING GLOMERULAR FILTRATION RATE . ESTIMATED GFR I S NOT APPLICABLE FOR DIALYSIS PATIEN TS. [employer] ID - HIEN [id number] 04:56:38 Test Item Value Reference Range Interpretation Comments MAGNESIUM (BEAKER) (test code = 1.9 mg/dL 1.6-2.6 627) [employer] ID - HIEN [id number] 04:56:38 Test Item Value Reference Range Interpretation Comments PHOSPHORUS (BEAKER) (test code = 3.7 mg/dL 2.3-4.7 604) [employer] ID - HIEN [facility] W/PLT COUNT & AUTO [id number] 04:33:28 Test Item Value Reference Range Interpretation Comments WHITE BLOOD CELL COUNT (BEAKER) 4.9 K/ L 3.5-10.5 (test code = 775) RED BLOOD CELL COUNT (BEAKER) 2.68 M/ L 3.93-5.22 L (test code = 761) HEMOGLOBIN (BEAKER) (test code = 8.1 GM/DL 11.2-15.7 L 410) HEMATOCRIT (BEAKER) (test code = 27.1 % 34.1-44.9 L 411) MEAN CORPUSCULAR VOLUME (BEAKER) 101.1 fL 79.4-94.8 H (test code = 753) MEAN CORPUSCULAR HEMOGLOBIN 30.2 pg 25.6-32.2 (BEAKER) (test code = 751) MEAN CORPUSCULAR HEMOGLOBIN CONC 29.9 GM/DL 32.2-35.5 L (BEAKER) (test code = 752) RED CELL DISTRIBUTION WIDTH 15.9 % 11.7-14.4 H (BEAKER) (test code = 412) PLATELET COUNT (BEAKER) (test code 84 K/CU MM 150-450 L = 756) MEAN PLATELET VOLUME (BEAKER) 11.5 fL 9.4-12.3 (test code = 754) NUCLEATED RED BLOOD CELLS (BEAKER) 0 /100 WBC 0-0 (test code = 413) NEUTROPHILS RELATIVE PERCENT 78 % (BEAKER) (test code = 429) LYMPHOCYTES RELATIVE PERCENT 11 % (BEAKER) (test code = 430) MONOCYTES RELATIVE PERCENT 10 % (BEAKER) (test code = 431) EOSINOPHILS RELATIVE PERCENT 1 % (BEAKER) (test code = 432) BASOPHILS RELATIVE PERCENT 1 % (BEAKER) (test code = 437) NEUTROPHILS ABSOLUTE COUNT 3.76 K/ L 1.56-6.13 (BEAKER) (test code = 670) LYMPHOCYTES ABSOLUTE COUNT 0.52 K/ L 1.18-3.74 L (BEAKER) (test code = 414) MONOCYTES ABSOLUTE COUNT (BEAKER) 0.49 K/ L 0.24-0.36 H (test code = 415) EOSINOPHILS ABSOLUTE COUNT 0.03 K/ L 0.04-0.36 L (BEAKER) (test code = 416) BASOPHILS ABSOLUTE COUNT (BEAKER) 0.03 K/ L 0.01-0.08 (test code = 417) IMMATURE GRANULOCYTES-RELATIVE 0 % 0-1 PERCENT (BEAKER) (test code = 2801) CBC W/PLT COUNT & AUTO [id number] 22:57:11 Test Item Value Reference Range Interpretation Comments WHITE BLOOD CELL COUNT (BEAKER) 6.3 K/ L 3.5-10.5 (test code = 775) RED BLOOD CELL COUNT (BEAKER) 2.57 M/ L 3.93-5.22 L (test code = 761) HEMOGLOBIN (BEAKER) (test code = 7.9 GM/DL 11.2-15.7 L 410) HEMATOCRIT (BEAKER) (test code = 24.7 % 34.1-44.9 L 411) MEAN CORPUSCULAR VOLUME (BEAKER) 96.1 fL 79.4-94.8 H (test code = 753) MEAN CORPUSCULAR HEMOGLOBIN 30.7 pg 25.6-32.2 (BEAKER) (test code = 751) MEAN CORPUSCULAR HEMOGLOBIN CONC 32.0 GM/DL 32.2-35.5 L (BEAKER) (test code = 752) RED CELL DISTRIBUTION WIDTH 15.6 % 11.7-14.4 H (BEAKER) (test code = 412) PLATELET COUNT (BEAKER) (test code 85 K/CU MM 150-450 L = 756) MEAN PLATELET VOLUME (BEAKER) 12.0 fL 9.4-12.3 (test code = 754) NUCLEATED RED BLOOD CELLS (BEAKER) 0 /100 WBC 0-0 (test code = 413) NEUTROPHILS RELATIVE PERCENT 84 % (BEAKER) (test code = 429) LYMPHOCYTES RELATIVE PERCENT 6 % (BEAKER) (test code = 430) MONOCYTES RELATIVE PERCENT 9 % (BEAKER) (test code = 431) EOSINOPHILS RELATIVE PERCENT 1 % (BEAKER) (test code = 432) BASOPHILS RELATIVE PERCENT 1 % (BEAKER) (test code = 437) NEUTROPHILS ABSOLUTE COUNT 5.25 K/ L 1.56-6.13 (BEAKER) (test code = 670) LYMPHOCYTES ABSOLUTE COUNT 0.39 K/ L 1.18-3.74 L (BEAKER) (test code = 414) MONOCYTES ABSOLUTE COUNT (BEAKER) 0.53 K/ L 0.24-0.36 H (test code = 415) EOSINOPHILS ABSOLUTE COUNT 0.03 K/ L 0.04-0.36 L (BEAKER) (test code = 416) BASOPHILS ABSOLUTE COUNT (BEAKER) 0.03 K/ L 0.01-0.08 (test code = 417) IMMATURE GRANULOCYTES-RELATIVE 0 % 0-1 PERCENT (BEAKER) (test code = 2801) RAD, CHEST, 1 VIEW, NON [id number] 22:44:00Reason for exam:- >dyspneaShould this be performed at the bedside?->Yes [facility] 1955 Sex: FFINAL REPORT History: dyspnea. Comparison: 06/07/2021 Findings: A si ngle view of the chest is submitted. The patient is rotated to the left. The cardiac silhouette is enlarged. There is atherosclerotic calcification of the aorta. Sternotomy wires and a right subclavian, dual-lead pacemaker are in place. There is central pulmonary vascular engorgement. Perihilar interstitial and airspace opacities suggest pulmonary edema. Pneumonitis should be excluded clinically. There is a new, moderate right pleural effusion. There is no pneumothorax or acute bony abnormality. Impression: Findings suggesting pulmonary edema/CHF. New, moderate right pleural effusion. Signed: Braxton Quinteroeport Verified Date/Time: 06/10/2021 22:44:59 [id number] 22:43:07 Test Item Value Reference Range Interpretation Comments POC-Glucose (test code = 118 mg/dL 70-110 H : [facility] [address] [place] [address], [address]: [employer] Associate/Techni kelle ID = [id number] for MARFIL, JOSE ARMANDO Lab Interpretation (test Abnormal code = 54060-7) [facility]2022-03-09 22:43:07 Test Item Value Reference Range Interpretation Comments POC-Glucose (test code = 118 mg/dL 70-110 H : [facility] [address] [place] [address], [address]: [employer] Associate/Techni kelle ID = [id number] for MARFIL, JOSE ARMANDO Lab Interpretation (test Abnormal code = 93360-8) [facility]2022-03-09 22:43:07 Test Item Value Reference Range Interpretation Comments POC-Glucose (test code = 118 mg/dL 70-110 H : [facility] [address] [place] [address], [address]: [employer] Associate/Techni kelle ID = [id number] for MARFIL, JOSE ARMANDO Lab Interpretation (test Abnormal code = 54255-6) [facility]2022-03-09 22:43:07 Test Item Value Reference Range Interpretation Comments POC-Glucose (test code = 118 mg/dL 70-110 H : [facility] [address] [place] [address], [address]: [employer] Associate/Techni kelle ID = [id number] for MARFIL, JOSE ARMANDO Lab Interpretation (test Abnormal code = 02915-5) [facility]2022-03-09 22:43:07 Test Item Value Reference Range Interpretation Comments POC-Glucose (test code = 118 mg/dL 70-110 H : [facility] [address] [place] [address], [address]: [employer] Associate/Techni kelle ID = [id number] for MARFIL, JOSE ARMANDO Lab Interpretation (test Abnormal code = 34852-1) [facility]2022-03-09 22:43:07 Test Item Value Reference Range Interpretation Comments POC-Glucose (test code = 118 mg/dL 70-110 H : T ESTED AT [facility] 1855) [address] [place] [address], [address]: [employer] Associate/Techni kelle ID = [id number] for MARFIL, JOSE ARMANDO Lab Interpretation (test Abnormal code = 57014-1) [facility]2022-03-09 22:43:07 Test Item Value Reference Range Interpretation Comments POC-Glucose (test code = 118 mg/dL 70-110 H : T ESTED AT [facility] 1855) [address] [place] [address], [address]: [employer] Associate/Techni kelle ID = [id number] for MARFIL, JOSE ARMANDO Lab Interpretation (test Abnormal code = 01455-6) [facility]2022-03-09 22:43:07 Test Item Value Reference Range Interpretation Comments POC-Glucose (test code = 118 mg/dL 70-110 H : T ESTED AT [facility] 1855) [address] [place] [address], [address]: [employer] Associate/Techni kelle ID = [id number] for MARFIL, JOSE ARMANDO Lab Interpretation (test Abnormal code = 56119-0) [facility]2022-03-09 22:43:07 Test Item Value Reference Range Interpretation Comments POC-Glucose (test code = 118 mg/dL 70-110 H : T ESTED AT [facility] 1855) [address] [place] [address], [address]: [employer] Associate/Techni kelle ID = [id number] for MARFIL, JOSE ARMANDO Lab Interpretation (test Abnormal code = 75469-5) [facility]2022-03-09 22:43:07 Test Item Value Reference Range Interpretation Comments POC-Glucose (test code = 118 mg/dL 70-110 H : T ESTED AT [facility] 1855) [address] [place] [address], [address] 30: [employer] Associate/Techni kelle ID = [id number] for MARFIL, JOSE ARMANDO Lab Interpretation (test Abnormal code = 58801-4) [facility]2022-03-09 22:43:07 Test Item Value Reference Range Interpretation Comments POC-GLUCOSE (BEAKER) 118 mg/dL 70-110 H : TESTE D AT [facility] 67 (test code = 1855) [facility], [address]: [employer] Associate/Techni kelle ID = [id number] for MARF [place], JOSE ARMANDO [id number] 22:43:06 Test Item Value Reference Range Interpretation Comments POC-Hemoglobin (test code 8.2 g/dL 12.0-15.0 L : TESTED AT [facility] = 1856) [address] [place] [address], [address]: [employer] Associate/Techni kelle ID = [id number] for MARFIL, JOSE ARMANDO Lab Interpretation (test Abnormal code = 65835-5) [facility][id number] 22:43:06 Test Item Value Reference Range Interpretation Comments POC-Hematocrit (test code 24 % 36-45 L : = 1857) [employer] Associate/Techni kelle ID = [id number] for MARFIL, JOSE ARMANDO Lab Interpretation (test Abnormal code = 20827-4) [facility]-[id number] 22:43:06 Test Item Value Reference Range Interpretation Comments POC-Hemoglobin (test code 8.2 g/dL 12.0-15.0 L : TESTED AT [facility] = 1856) [address] [place] [address], [address]: [employer] Associate/Techni kelle ID = [id number] for MARFIL, JOSE ARMANDO Lab Interpretation (test Abnormal code = 67731-7) [facility]-[id number] 22:43:06 Test Item Value Reference Range Interpretation Comments POC-Hematocrit (test code 24 % 36-45 L : = 1857) [employer] Associate/Techni kelle ID = [id number] for MARFIL, JOSE ARMANDO Lab Interpretation (test Abnormal code = 05765-0) [facility]-[id number] 22:43:06 Test Item Value Reference Range Interpretation Comments POC-Hemoglobin (test code 8.2 g/dL 12.0-15.0 L : TESTED AT [facility] = 1856) [address] [place] [address], [address]: [employer] Associate/Techni kelle ID = [id number] for MARFIL, JOSE ARMANDO Lab Interpretation (test Abnormal code = 70950-4) [facility]-[id number] 22:43:06 Test Item Value Reference Range Interpretation Comments POC-Hematocrit (test code 24 % 36-45 L : = 1857) [employer] Associate/Techni kelle ID = [id number] for MARFIL, JOSE ARMANDO Lab Interpretation (test Abnormal code = 57084-3) [facility]-[id number] 22:43:06 Test Item Value Reference Range Interpretation Comments POC-Hemoglobin (test code 8.2 g/dL 12.0-15.0 L : TESTED AT [facility] = 1856) [address] [place] [address], [address] 30: [employer] Associate/Techni kelle ID = [id number] for MARFIL, JOSE ARMANDO Lab Interpretation (test Abnormal code = 94479-6) [facility]-[id number] 22:43:06 Test Item Value Reference Range Interpretation Comments POC-Hematocrit (test code 24 % 36-45 L : = 1857) [employer] Associate/Techni kelle ID = [id number] for MARFIL, JOSE ARMANDO Lab Interpretation (test Abnormal code = 75320-3) [facility]-[id number] 22:43:06 Test Item Value Reference Range Interpretation Comments POC-Hemoglobin (test code 8.2 g/dL 12.0-15.0 L : TESTED AT [facility] = 1856) [address] [place] [address], [address] 30: [employer] Associate/Techni kelle ID = [id number] for MARFIL, JOSE ARMANDO Lab Interpretation (test Abnormal code = 69435-0) [facility]-[id number] 22:43:06 Test Item Value Reference Range Interpretation Comments POC-Hematocrit (test code 24 % 36-45 L : = 1857) [employer] Associate/Techni kelle ID = [id number] for MARFIL, JOSE ARMANDO Lab Interpretation (test Abnormal code = 90243-8) [facility]-[id number] 22:43:06 Test Item Value Reference Range Interpretation Comments POC-Hemoglobin (test code 8.2 g/dL 12.0-15.0 L : TESTED AT [facility] = 1856) [address] [place] [address], [address]: [employer] Associate/Techni kelle ID = [id number] for MARFIL, JOSE ARMANDO Lab Interpretation (test Abnormal code = 56518-1) [facility]-[id number] 22:43:06 Test Item Value Reference Range Interpretation Comments POC-Hematocrit (test code 24 % 36-45 L : = 1857) [employer] Associate/Techni kelle ID = [id number] for MARFIL, JOSE ARMANDO Lab Interpretation (test Abnormal code = 50155-9) [facility]-[id number] 22:43:06 Test Item Value Reference Range Interpretation Comments POC-Hemoglobin (test code 8.2 g/dL 12.0-15.0 L : [facility] [address] [place] [address], [address]: [employer] Associate/Techni kelle ID = [id number] for MARFIL, JOSE ARMANDO Lab Interpretation (test Abnormal code = 11328-4) [facility]-[id number] 22:43:06 Test Item Value Reference Range Interpretation Comments POC-Hematocrit (test code 24 % 36-45 L : = 1857) [employer]/Techni kelle ID = [id number] for MARFIL, JOSE ARMANDO Lab Interpretation (test Abnormal code = 29289-3) [facility]-[id number] 22:43:06 Test Item Value Reference Range Interpretation Comments POC-Hemoglobin (test code 8.2 g/dL 12.0-15.0 L : [facility] 1856[facility] [address] [place] [address], [address] 30: [employer] Associate/Techni kelle ID = [id number] for MARFIL, JOSE ARMANDO Lab Interpretation (test Abnormal code = 20530-6) [facility]-[id number] 22:43:06 Test Item Value Reference Range Interpretation Comments POC-Hematocrit (test code 24 % 36-45 L : = 1857) [employer]/Techni kelle ID = [id number] for MARFIL, JOSE ARMANDO Lab Interpretation (test Abnormal code = 25103-3) [facility]-[id number] 22:43:06 Test Item Value Reference Range Interpretation Comments POC-Hemoglobin (test code 8.2 g/dL 12.0-15.0 L : TESTED AT [facility] = 1856) [address] [place] [address], [address] 30: [employer] Associate/Techni kelle ID = [id number] for MARFIL, JOSE ARMANDO Lab Interpretation (test Abnormal code = 60837-8) [facility]PO[facility]-[id number] 22:43:06 Test Item Value Reference Range Interpretation Comments POC-Hematocrit (test code 24 % 36-45 L : = 1857) [employer]/Techni kelle ID = [id number] for MARFIL, JOSE ARMANDO Lab Interpretation (test Abnormal code = 95085-4) [facility]-[id number] 22:43:06 Test Item Value Reference Range Interpretation Comments POC-Hemoglobin (test code 8.2 g/dL 12.0-15.0 L : TESTED AT [facility] = 1856) [address] [facility], 7[address] 30: [employer] Associate/Techni kelle ID = [id number] for MARFIL, JOSE ARMANDO Lab Interpretation (test Abnormal code = 36655-4) [facility]POCT-[id number] 22:43:06 Test Item Value Reference Range Interpretation Comments POC-Hematocrit (test code 24 % 36-45 L : = 1857) [employer] Associate/Techni kelle ID = [id number] for MARFIL, JOSE ARMANDO Lab Interpretation (test Abnormal code = 93319-0) [facility]-[id number] 22:43:06 Test Item Value Reference Range Interpretation Comments POC-HEMOGLOBIN 8.2 g/dL 12.0-15.0 L : TESTED AT [facility] 6720 (BEAKER) (test code = YUDY [place] [facility], 1856) [address]: [employer] Associate/Techni kelle ID = [id number] for MARF [place], JOSE ARMANDO MUMN-[id number] 22:43:06 Test Item Value Reference Range Interpretation Comments POC-HEMATOCRIT 24 % 36-45 L : [employer] Associate/Te chnician ID = (BEAKER) (test code = 382273 for MARFIL, JOSE ARMANDO 1857) EUO-[id number] 22:43:05 Test Item Value Reference Range Interpretation Comments POC-Potassium (test code 3.4 meq/L 3.6-5.5 L : T ESTED AT [facility] = 1540) [address] [facility], 770 30: [employer] Associate/Techni kelle ID = [id number] for MARFIL, JOSE ARMANDO Lab Interpretation (test Abnormal code = 49811-2) [facility]-[id number] 22:43:05 Test Item Value Reference Range Interpretation Comments POC-Sodium (test code = 137 meq/L 135-148 : TE STED AT [facility] 1542) [address] [place] [address], [address] 30: [employer] Associate/Techni kelle ID = [id number] for MARFIL, JOSE ARMANDO Lab Interpretation (test Normal code = 94252-3) [facility]-[id number] 22:43:05 Test Item Value Reference Range Interpretation Comments POC-Potassium (test code 3.4 meq/L 3.6-5.5 L : T ESTED AT [facility] = 1540) [address] [place] [address], [address]: [employer] Associate/Techni kelle ID = [id number] for MARFIL, JOSE ARMANDO Lab Interpretation (test Abnormal code = 28019-3) [id number] 22:43:05 Test Item Value Reference Range Interpretation Comments POC-Sodium (test code = 137 meq/L 135-148 : TE STED AT [facility] 1542) [address] [place] [address], [address] 30: [employer] Associate/Techni kelle ID = [id number] for MARFIL, JOSE ARMANDO Lab Interpretation (test Normal code = 66259-2) [facility]-[id number] 22:43:05 Test Item Value Reference Range Interpretation Comments POC-Potassium (test code 3.4 meq/L 3.6-5.5 L : T ESTED AT [facility] = 1540) [address] [place] [address], [address]: [employer] Associate/Techni kelle ID = [id number] for MARFIL, JOSE ARMANDO Lab Interpretation (test Abnormal code = 15678-9) [facility]Fherba9958-44-20 22:43:05 Test Item Value Reference Range Interpretation Comments POC-Sodium (test code = 137 meq/L 135-148 : TE STED AT [facility] 1542) [address] [place] [address], [address] 30: [employer] Associate/Techni kelle ID = [id number] for MARFIL, JOSE ARMANDO Lab Interpretation (test Normal code = 88355-0) [facility]-[id number] 22:43:05 Test Item Value Reference Range Interpretation Comments POC-Potassium (test code 3.4 meq/L 3.6-5.5 L : [facility] [facility] = 1540) [address] [place] [address], 770 30: [employer] Services [employer] Associate/Techni kelle ID = [id number] for MARFIL, JOSE ARMANDO Lab Interpretation (test Abnormal code = 19923-1) [facility]-Sagott3347-29-30 22:43:05 Test Item Value Reference Range Interpretation Comments POC-Sodium (test code = 137 meq/L 135-148 : TE STED AT [facility] 1542) [address] [place] [address], 770 30: University Services Program Associate/Techni kelle ID = [id number] for MARFIL, JOSE ARMANDO Lab Interpretation (test Normal code = 97173-0) [facility]-[id number] 22:43:05 Test Item Value Reference Range Interpretation Comments POC-Potassium (test code 3.4 meq/L 3.6-5.5 L : T ESTED AT [facility] = 1540) [address] [place] [address], 770 30: University Services Program Associate/Techni kelle ID = [id number] for MARFIL, JOSE ARMANDO Lab Interpretation (test Abnormal code = 66918-0) [id number]:43:05 Test Item Value Reference Range Interpretation Comments POC-Sodium (test code = 137 meq/L 135-148 : TE STED AT [facility] 1542) [address] [place] [address], [facility] 30: [employer] Services Program Associate/Techni kelle ID = [id number] for MARFIL, JOSE ARMANDO Lab Interpretation (test Normal code = 40238-3) [facility]-Vthfhxnpp9111-70-14 22:43:05 Test Item Value Reference Range Interpretation Comments POC-Potassium (test code 3.4 meq/L 3.6-5.5 L : T ESTED AT [facility] = 1540) [address] [place] [address], 770 30: [employer] Services Program Associate/Techni kelle ID = [id number] for MARFIL, JOSE ARMANDO Lab Interpretation (test Abnormal code = 18874-8) [facility]4655[facility]91 22:43:05 Test Item Value Reference Range Interpretation Comments POC-Sodium (test code = 137 meq/L 135-148 : TE STED AT [facility] 1542) [address] [place] [address], 770 30: [employer] Services Program Associate/Techni kelle ID = [id number] for MARFIL, JOSE ARMANDO Lab Interpretation (test Normal code = 06304-1) [facility]-Zrcxexoxq3698-46-95 22:43:05 Test Item Value Reference Range Interpretation Comments POC-Potassium (test code 3.4 meq/L 3.6-5.5 L : T ESTED AT [facility] = 1540) [address] [place] [address], 770 30: [employer] Services Program Associate/Techni kelle ID = [id number] for MARFIL, JOSE ARMANDO Lab Interpretation (test Abnormal code = 40200-4) [facility]-Jsdasn7169-41-31 22:43:05 Test Item Value Reference Range Interpretation Comments POC-Sodium (test code = 137 meq/L 135-148 : TE STED AT [facility] 1542) [address] [place] [address], 770 30: University Services Program Associate/Techni kelle ID = [id number] for MARFIL, JOSE ARMANDO Lab Interpretation (test Normal code = 33256-6) [facility]-Fvlhirukh4383-17-37 22:43:05 Test Item Value Reference Range Interpretation Comments POC-Potassium (test code 3.4 meq/L 3.6-5.5 L : T ESTED AT [facility] = 1540) [address] [place] [address], [facility] 30: [employer] Program Associate/Techni kelle ID = [id number] for MARFIL, JOSE ARMANDO Lab Interpretation (test Abnormal code = 42933-1) [facility]-Wsxabj6755-73-11 22:43:05 Test Item Value Reference Range Interpretation Comments POC-Sodium (test code = 137 meq/L 135-148 : TE STED AT [facility] 1542) [address] [place] [address], 770 30: University Services Program Associate/Techni kelle ID = [id number] for MARFIL, JOSE ARMANDO Lab Interpretation (test Normal code = 84203-5) [facility]-Uasxsttui1658-63-21 22:43:05 Test Item Value Reference Range Interpretation Comments POC-Potassium (test code 3.4 meq/L 3.6-5.5 L : T ESTED AT [facility] = 1540) [address] [facility], 770 30: University Services Program Associate/Techni kelle ID = [id number] for MARFIL, JOSE ARMANDO Lab Interpretation (test Abnormal code = 02195-1) [facility]-Nnwafi2011-77-37 22:43:05 Test Item Value Reference Range Interpretation Comments POC-Sodium (test code = 137 meq/L 135-148 : TE STED AT [facility] 1542) [address] [facility], 770 30: [employer] Services Program Associate/Techni kelle ID = [id number] for MARFIL, JOSE ARMANDO Lab Interpretation (test Normal code = 71728-1) [facility]-Msfiltdzg6546-81-53 22:43:05 Test Item Value Reference Range Interpretation Comments POC-Potassium (test code 3.4 meq/L 3.6-5.5 L : T ESTED AT [facility] = 1540) [address] [facility], 770 30: [employer] Services Program Associate/Techni kelle ID = [id number] for MARFIL, JOSE ARMANDO Lab Interpretation (test Abnormal code = 64620-8) [facility]-Awesoq8546-34-76 22:43:05 Test Item Value Reference Range Interpretation Comments POC-Sodium (test code = 137 meq/L 135-148 : TE STED AT [facility] 1542) [address] [facility], 770 30: [employer] Services Program Associate/Techni kelle ID = [id number] for MARFIL, JOSE ARMANDO Lab Interpretation (test Normal code = 56477-1) [facility]-[id number] 22:43:05 Test Item Value Reference Range Interpretation Comments POC-SODIUM (BEAKER) 137 meq/L 135-148 : TESTED AT [facility] 6720 (test code = 1542) [facility], [address]: [employer] Services Program Associate/Techni kelle ID = [id number] for MARF IL, JOSE ARMANDO [id number]-[id number] 22:43:05 Test Item Value Reference Range Interpretation Comments POC-POTASSIUM 3.4 meq/L 3.6-5.5 L : TESTED AT [facility] 6720 (BEAKER) (test code [facility], = 1540) [address]: [employer] Associate/Techni kelle ID = [id number] for JOSE ARMANDO KUMAR POC-Blood gases, [id number] 22:42:59 Test Item Value Reference Range Interpretation Comments Temp. Celsius-POC (test 101.3 code = 1834) FIO2-POC (test code = 28 1834) pH, Venous-POC (test 7.484 7.320-7.420 H : TESTE D AT [facility] code = 1842) [address] [facility] [place], [address] PCO2, Venous-POC (test 39.4 See_Comment L If pO 2 is >180, pCO2 code = 1843) may be positive ly biased [Automat ed message] The sy stem which generated this result transmit levi reference range : 41.0 - 51.0 mm Hg. The reference r alba was not used to interpret this result as normal/abnormal . PO2, Venous-POC (test 53.0 See_Comment H [Auto mated message] code = 1844) The system [employer] management generated this result transmit levi reference range : 25.0 - 40.0 mm Hg. The reference r alba was not used to interpret this result as normal/abnormal . SO2, Venous-POC (test 87.0 % 40.0-70.0 H code = 1845) HCO3, Venous-POC (test 29.3 meq/L 21.0-29.0 H code = 1846) BE, Venous-POC (test 6.0 meq/L -2.0-3.0 H : code = 1847) [employer] Associate/Techni kelle ID = [id number] for JOSE ARMANDO CELIS Lab Interpretation Abnormal (test code = 37446-7) [facility], [id number] 22:42:59 Test Item Value Reference Range Interpretation Comments Temp. Celsius-POC (test 101.3 code = 1834) FIO2-POC (test code = 1834) pH, Venous-POC (test 7.484 7.320-7.420 H : TESTE D AT [facility] code = 1842) [address] [facility] [place], [address] PCO2, Venous-POC (test 39.4 See_Comment L If pO 2 is >180, pCO2 code = 1843) may be positive ly biased [Automat ed message] The sy stem which generated this result transmit levi reference range : 41.0 - 51.0 mm Hg. The reference r alba was not used to interpret this result as normal/abnormal . PO2, Venous-POC (test 53.0 See_Comment H [Auto mated message] code = 1844) The system [employer] generated this result transmit levi reference range : 25.0 - 40.0 mm Hg. The reference r alba was not used to interpret this result as normal/abnormal . SO2, Venous-POC (test 87.0 % 40.0-70.0 H code = 1845) HCO3, Venous-POC (test 29.3 meq/L 21.0-29.0 H code = 1846) BE, Venous-POC (test 6.0 meq/L -2.0-3.0 H : code = 1847) [employer] Associate/Techni kelle ID = [id number] for MARFILWILFRIDOJOSE ARMANDO Lab Interpretation Abnormal (test code = 93593-3) [facility]-Blood gases, [id number] 22:42:59 Test Item Value Reference Range Interpretation Comments Temp. Celsius-POC (test 101.3 code = 1834) FIO2-POC (test code = 28 1835) pH, Venous-POC (test 7.484 7.320-7.420 H : TESTE D AT [facility] code = 1842) [address] [facility], [address] PCO2, Venous-POC (test 39.4 See_Comment L If pO 2 is >180, pCO2 code = 1843) may be positive ly biased [Automat ed message] The sy stem which generated this result transmit levi reference range : 41.0 - 51.0 mm Hg. The reference r alba was not used to interpret this result as normal/abnormal . PO2, Venous-POC (test 53.0 See_Comment H [Auto mated message] code = 1844) The system [employer] generated this result transmit levi reference range : 25.0 - 40.0 mm Hg. The reference r alba was not used to interpret this result as normal/abnormal . SO2, Venous-POC (test 87.0 % 40.0-70.0 H code = 1845) HCO3, Venous-POC (test 29.3 meq/L 21.0-29.0 H code = 1846) BE, Venous-POC (test 6.0 meq/L -2.0-3.0 H : code = 1847) [employer] Associate/Techni kelle ID = [id number] for MARFIL, JOSE ARMANDO Lab Interpretation Abnormal (test code = 11818-2) [facility]-Blood gases, [id number] 22:42:59 Test Item Value Reference Range Interpretation Comments Temp. Celsius-POC (test 101.3 code = 1834) FIO2-POC (test code = 28 1834) pH, Venous-POC (test 7.484 7.320-7.420 H : TESTE D AT [facility] code = 1842) [address] [facility], [address] PCO2, Venous-POC (test 39.4 See_Comment L If pO 2 is >180, pCO2 code = 1843) may be positive ly biased [Automat ed message] The sy stem which generated this result transmit levi reference range : 41.0 - 51.0 mm Hg. The reference r alba was not used to interpret this result as normal/abnormal . PO2, Venous-POC (test 53.0 See_Comment H [Auto mated message] code = 1844) The system [employer] generated this result transmit levi reference range : 25.0 - 40.0 mm Hg. The reference r alba was not used to interpret this result as normal/abnormal . SO2, Venous-POC (test 87.0 % 40.0-70.0 H code = 1845) HCO3, Venous-POC (test 29.3 meq/L 21.0-29.0 H code = 1846) BE, Venous-POC (test 6.0 meq/L -2.0-3.0 H : code = 1847) [employer] Associate/Techni kelle ID = [id number] for MARFIL, JOSE ARMANDO Lab Interpretation Abnormal (test code = 34858-1) [facility]-Blood gases, [id number] 22:42:59 Test Item Value Reference Range Interpretation Comments Temp. Celsius-POC (test 101.3 code = 1834) FIO2-POC (test code = 28 5) pH, Venous-POC (test 7.484 7.320-7.420 H : TESTE D AT [facility] code = 1842) [address] [facility] [place], [address] PCO2, Venous-POC (test 39.4 See_Comment L If pO 2 is >180, pCO2 code = 1843) may be positive ly biased [Automat ed message] The sy stem which generated this result transmit levi reference range : 41.0 - 51.0 mm Hg. The reference r alba was not used to interpret this result as normal/abnormal . PO2, Venous-POC (test 53.0 See_Comment H [Auto mated message] code = 1844) The system [employer] generated this result transmit levi reference range : 25.0 - 40.0 mm Hg. The reference r alba was not used to interpret this result as normal/abnormal . SO2, Venous-POC (test 87.0 % 40.0-70.0 H code = 1845) HCO3, Venous-POC (test 29.3 meq/L 21.0-29.0 H code = 1846) BE, Venous-POC (test 6.0 meq/L -2.0-3.0 H : code = 1847) [employer] Associate/Techni kelle ID = [id number] for JOSE ARMANDO CELIS Lab Interpretation Abnormal (test code = 28414-3) [facility]-Blood gases, [id number] 22:42:59 Test Item Value Reference Range Interpretation Comments Temp. Celsius-POC (test 101.3 code = 1834) FIO2-POC (test code = 28 1835) pH, Venous-POC (test 7.484 7.320-7.420 H : TESTE D AT [facility] code = 1842) [address] [facility] [place], [address] PCO2, Venous-POC (test 39.4 See_Comment L If pO 2 is >180, pCO2 code = 1843) may be positive ly biased [Automat ed message] The sy stem which generated this result transmit levi reference range : 41.0 - 51.0 mm Hg. The reference r alba was not used to interpret this result as normal/abnormal . PO2, Venous-POC (test 53.0 See_Comment H [Auto mated message] code = 1844) The system [employer] generated this result transmit levi reference range : 25.0 - 40.0 mm Hg. The reference r alba was not used to interpret this result as normal/abnormal . SO2, Venous-POC (test 87.0 % 40.0-70.0 H code = 1845) HCO3, Venous-POC (test 29.3 meq/L 21.0-29.0 H code = 1846) BE, Venous-POC (test 6.0 meq/L -2.0-3.0 H : code = 1847) [employer] Associate/Techni kelle ID = [id number] for MARFIL, JOSE ARMANDO Lab Interpretation Abnormal (test code = 36657-4) [facility]-Blood gases, [id number] 22:42:59 Test Item Value Reference Range Interpretation Comments Temp. Celsius-POC (test 101.3 code = 1834) FIO2-POC (test code = 28 1835) pH, Venous-POC (test 7.484 7.320-7.420 H : TESTE D AT [facility] code = 1842) [address] [facility], [address] PCO2, Venous-POC (test 39.4 See_Comment L If pO 2 is >180, pCO2 code = 1843) may be positive ly biased [Automat ed message] The sy stem which generated this result transmit levi reference range : 41.0 - 51.0 mm Hg. The reference r alba was not used to interpret this result as normal/abnormal . PO2, Venous-POC (test 53.0 See_Comment H [Auto mated message] code = 1844) The system [employer] management generated this result transmit levi reference range : 25.0 - 40.0 mm Hg. The reference r alba was not used to interpret this result as normal/abnormal . SO2, Venous-POC (test 87.0 % 40.0-70.0 H code = 1845) HCO3, Venous-POC (test 29.3 meq/L 21.0-29.0 H code = 1846) BE, Venous-POC (test 6.0 meq/L -2.0-3.0 H : code = 1847) [employer] Associate/Techni kelle ID = [id number] for MARFIL, JOSE ARMANDO Lab Interpretation Abnormal (test code = 57344-3) [facility]-Blood gases, [id number] 22:42:59 Test Item Value Reference Range Interpretation Comments Temp. Celsius-POC (test 101.3 code = 1834) FIO2-POC (test code = 1834) pH, Venous-POC (test 7.484 7.320-7.420 H : TESTE D AT [facility] code = 1842) [address] [facility] [place], [address] PCO2, Venous-POC (test 39.4 See_Comment L If pO 2 is >180, pCO2 code = 1843) may be positive ly biased [Automat ed message] The sy stem which generated this result transmit levi reference range : 41.0 - 51.0 mm Hg. The reference r alba was not used to interpret this result as normal/abnormal . PO2, Venous-POC (test 53.0 See_Comment H [Auto mated message] code = 1844) The system [employer] management generated this result transmit levi reference range : 25.0 - 40.0 mm Hg. The reference r alba was not used to interpret this result as normal/abnormal . SO2, Venous-POC (test 87.0 % 40.0-70.0 H code = 1845) HCO3, Venous-POC (test 29.3 meq/L 21.0-29.0 H code = 1846) BE, Venous-POC (test 6.0 meq/L -2.0-3.0 H : code = 1847) [employer] Associate/Techni kelle ID = [id number] for JOSE ARMANDO CELIS Lab Interpretation Abnormal (test code = 97507-3) [facility]-Blood gases, [id number] 22:42:59 Test Item Value Reference Range Interpretation Comments Temp. Celsius-POC (test 101.3 code = 1834) FIO2-POC (test code = 1834) pH, Venous-POC (test 7.484 7.320-7.420 H : TESTE D AT [facility] code = 1842) [address] [facility] [place] [place], [address] PCO2, Venous-POC (test 39.4 See_Comment L If pO 2 is >180, pCO2 code = 1843) may be positive ly biased [Automat ed message] The sy stem which generated this result transmit levi reference range : 41.0 - 51.0 mm Hg. The reference r abla was not used to interpret this result as normal/abnormal . PO2, Venous-POC (test 53.0 See_Comment H [Auto mated message] code = 1844) The system [employer] management generated this result transmit levi reference range : 25.0 - 40.0 mm Hg. The reference r alba was not used to interpret this result as normal/abnormal . SO2, Venous-POC (test 87.0 % 40.0-70.0 H code = 1845) HCO3, Venous-POC (test 29.3 meq/L 21.0-29.0 H code = 1846) BE, Venous-POC (test 6.0 meq/L -2.0-3.0 H : code = 1847) [employer] Associate/Techni kelle ID = [id number] for JOSE ARMANDO CELIS Lab Interpretation Abnormal (test code = 49266-3) [facility]-Blood gases, [id number] 22:42:59 Test Item Value Reference Range Interpretation Comments Temp. Celsius-POC (test 101.3 code = 1834) FIO2-POC (test code = 28 1835) pH, Venous-POC (test 7.484 7.320-7.420 H : TESTE D AT [facility] code = 1842) [address] [facility], [address] PCO2, Venous-POC (test 39.4 See_Comment L If pO 2 is >180, pCO2 code = 1843) may be positive ly biased [Automat ed message] The sy stem which generated this result transmit levi reference range : 41.0 - 51.0 mm Hg. The reference r alba was not used to interpret this result as normal/abnormal . PO2, Venous-POC (test 53.0 See_Comment H [Auto mated message] code = 1844) The system [employer] management generated this result transmit levi reference range : 25.0 - 40.0 mm Hg. The reference r alba was not used to interpret this result as normal/abnormal . SO2, Venous-POC (test 87.0 % 40.0-70.0 H code = 1845) HCO3, Venous-POC (test 29.3 meq/L 21.0-29.0 H code = 1846) BE, Venous-POC (test 6.0 meq/L -2.0-3.0 H : code = 1847) [employer] Associate/Techni kelle ID = [id number] for HERBERT CELISE Lab Interpretation Abnormal (test code = 70926-4) [facility], [id number] 22:42:59 Test Item Value Reference Range Interpretation Comments TEMP, CELSIUS-POC 101.3 (BEAKER) (test code = 1834) FIO2-POC (BEAKER) 28 (test code = 1835) PH, VENOUS-POC 7.484 7.320-7.420 H : TESTED AT [facility] 6720 (BEAKER) (test code [facility], = 1842) [address] PCO2, VENOUS-POC 39.4 mm Hg 41.0-51.0 L If pO2 is > 180, pCO2 may (BEAKER) (test code be posit ively biased = 1843) PO2, VENOUS-POC 53.0 mm Hg 25.0-40.0 H (BEAKER) (test code = 1844) SO2, VENOUS-POC 87.0 % 40.0-70.0 H (BEAKER) (test code = 1845) HCO3, VENOUS-POC 29.3 meq/L 21.0-29.0 H (BEAKER) (test code = 1846) BASE EXCESS, 6.0 meq/L -2.0-3.0 H : [employer] Associate/Tech mayte ID VENOUS-POC (BEAKER) = [id number] for VIMAL, (test code = 1847) JOSE ARMANDO LACTIC ACID, [id number] 22:23:56 Test Item Value Reference Range Interpretation Comments LACTATE BLOOD VENOUS 0.92 mmol/L 0.50-2.20 Specime n moderately (2) (BEAKER) (test hemolyzed code = 2872) [employer] Associate ID - BSPOCT-GLUCOSE [id number] 21:35:23 Test Item Value Reference Range Interpretation Comments POC-GLUCOSE METER 125 mg/dL 70-110 H : TESTED A T [facility] 6720 (BEAKER) (test code = YUDY [place] [facility], 1538) [address]: [employer] Associate/Techni kelle ID = [id number] for UG GHADA HAMLIN POCT-GLUCOSE [id number] 17:05:43 Test Item Value Reference Range Interpretation Comments POC-GLUCOSE METER 224 mg/dL 70-110 H : TESTED A T [facility] 6720 (BEAKER) (test code = [facility], 1538) [address]: [employer] Program Associate/Techni kelle ID = [id number] for Re yesMaranda POCT-GLUCOSE [id number] 16:33:44 Test Item Value Reference Range Interpretation Comments POC-GLUCOSE METER 108 mg/dL 70-110 : TESTED A T [facility] 6720 (BEAKER) (test code = [facility], 1538) [address]: [employer] Associate/Techni kelle ID = [id number] for Ag Herminia ball POCT-GLUCOSE [id number] 07:38:21 Test Item Value Reference Range Interpretation Comments POC-GLUCOSE METER 185 mg/dL 70-110 H : TESTED A T [facility] 6720 (BEAKER) (test code = [facility], 1538) [address]: [employer] Services Program Associate/Techni kelle ID = [id number] for Re yes, Maranda BASIC METABOLIC [id number] 07:20:13 Test Item Value Reference Range Interpretation Comments SODIUM (BEAKER) 136 meq/L 136-145 (test code = 381) POTASSIUM (BEAKER) 3.7 meq/L 3.5-5.1 (test code = 379) CHLORIDE (BEAKER) 99 meq/L 98-107 (test code = 382) CO2 (BEAKER) (test 25 meq/L 22-29 code = 355) BLOOD UREA NITROGEN 28 mg/dL 7-21 H (BEAKER) (test code = 354) CREATININE (BEAKER) 4.71 mg/dL 0.57-1.25 H (test code = 358) GLUCOSE RANDOM 215 mg/dL 70-105 H (BEAKER) (test code = 652) CALCIUM (BEAKER) 8.3 mg/dL 8.4-10.2 L (test code = 697) EGFR (BEAKER) (test 9 mL/min/1.73 ESTIMAT ED GFR IS code = 1092) sq m NOT ACCURATE CREATININE CLEARANCE IN PREDICTING GLOMERULAR FILTRATION RATE . ESTIMATED GFR I S NOT APPLICABLE FOR DIALYSIS PATIEN TS. [employer] Associate ID - HIEN [id number] 06:54:10 Test Item Value Reference Range Interpretation Comments PHOSPHORUS (BEAKER) (test code = 4.6 mg/dL 2.3-4.7 604) [employer] Associate ID - HIEN [id number] 06:54:09 Test Item Value Reference Range Interpretation Comments MAGNESIUM (BEAKER) (test code = 2.2 mg/dL 1.6-2.6 627) [employer] Associate ID - HIEN [facility] W/PLT COUNT & AUTO [id number] 04:53:46 Test Item Value Reference Range Interpretation Comments WHITE BLOOD CELL COUNT (BEAKER) 3.7 K/ L 3.5-10.5 (test code = 775) RED BLOOD CELL COUNT (BEAKER) 2.63 M/ L 3.93-5.22 L (test code = 761) HEMOGLOBIN (BEAKER) (test code = 8.0 GM/DL 11.2-15.7 L 410) HEMATOCRIT (BEAKER) (test code = 25.1 % 34.1-44.9 L 411) MEAN CORPUSCULAR VOLUME (BEAKER) 95.4 fL 79.4-94.8 H (test code = 753) MEAN CORPUSCULAR HEMOGLOBIN 30.4 pg 25.6-32.2 (BEAKER) (test code = 751) MEAN CORPUSCULAR HEMOGLOBIN CONC 31.9 GM/DL 32.2-35.5 L (BEAKER) (test code = 752) RED CELL DISTRIBUTION WIDTH 15.6 % 11.7-14.4 H (BEAKER) (test code = 412) PLATELET COUNT (BEAKER) (test code 91 K/CU MM 150-450 L = 756) MEAN PLATELET VOLUME (BEAKER) 11.5 fL 9.4-12.3 (test code = 754) NUCLEATED RED BLOOD CELLS (BEAKER) 0 /100 WBC 0-0 (test code = 413) NEUTROPHILS RELATIVE PERCENT 71 % (BEAKER) (test code = 429) LYMPHOCYTES RELATIVE PERCENT 14 % (BEAKER) (test code = 430) MONOCYTES RELATIVE PERCENT 12 % (BEAKER) (test code = 431) EOSINOPHILS RELATIVE PERCENT 2 % (BEAKER) (test code = 432) BASOPHILS RELATIVE PERCENT 1 % (BEAKER) (test code = 437) NEUTROPHILS ABSOLUTE COUNT 2.64 K/ L 1.56-6.13 (BEAKER) (test code = 670) LYMPHOCYTES ABSOLUTE COUNT 0.52 K/ L 1.18-3.74 L (BEAKER) (test code = 414) MONOCYTES ABSOLUTE COUNT (BEAKER) 0.44 K/ L 0.24-0.36 H (test code = 415) EOSINOPHILS ABSOLUTE COUNT 0.06 K/ L 0.04-0.36 (BEAKER) (test code = 416) BASOPHILS ABSOLUTE COUNT (BEAKER) 0.04 K/ L 0.01-0.08 (test code = 417) IMMATURE GRANULOCYTES-RELATIVE 1 % 0-1 PERCENT (BEAKER) (test code = 2801) POCT-GLUCOSE [id number] 21:34:14 Test Item Value Reference Range Interpretation Comments POC-GLUCOSE METER 260 mg/dL 70-110 H : TESTED A T [facility] 6720 (BEAKER) (test code = [facility] [employer] [facility], 1538) [id number]: [employer] Associate/Techni kelle ID = [id number] for HUMBERTO GHADA HAMLIN POCT-GLUCOSE [id number] 16:27:30 Test Item Value Reference Range Interpretation Comments POC-GLUCOSE METER 170 mg/dL 70-110 H : TESTED A T [facility] 6720 (BEAKER) (test code = [employer] [facility], 1538) [id number]: [employer] Associate/Techni kelle ID = [id number] for Soledad Rivera 2D Echo W/Doppler(CW/PW/Color)2021-06-09 16:08:58E[facility]CW/PW/Color)2021-06-09 16:08:58Ejection [facility]LE[facility](CW/PW/Color) 2021-06-09 16:08:58Ejection [facility]Do[facility](CW/PW/Color)2021-06-09 16:08:58Ejection [facility]LEH [facility] Echo W/Doppler(CW/PW/Color)2021-06-09 16:08:58Ejection FractionSLEH ECHO HEARTLAB MKSaint [place]2D Echo W/Doppler(CW/PW/Color) 2021-06-09 16:08:58Ejection FractionSLEH ECHO HEARTLAB [facility] W/Doppler(CW/PW/Color)2021-06-09 16:08:58Ejection FractionSLEH ECHO HEARTLAB [facility] W/Doppler(CW/PW/Color)2021-06-09 16:08:58Ejection FractionSLEH ECHO HEARTLAB [facility] W/Doppler(CW/PW/Color) 2021-06-09 16:08:58Ejection FractionSLEH ECHO HEARTLAB [facility] W/Doppler(CW/PW/Color)2021-06-09 16:08:58Ejection FractionSLEH ECHO HEARTLAB SHANDRA [facility] Transesophageal [id number] 16:06:54Ejection FractionSLEH ECHO HEARTLAB [facility] [id number] 16:06:54Ejection FractionSLEH ECHO HEARTLAB [facility] [id number] 16:06:54Ejection FractionSLEH ECHO [facility]ARTLAB [facility] 2021-06-09 16:06:54Ejection FractionSLEH ECHO [facility]ARTLAB [facility] [id number] 16:06:54Ejection FractionSLEH ECHO HEARTLAB SHANDRA [facility] Transesophageal [id number] 16:06:54Ejection FractionSLEH ECHO HEARTLAB [facility] [id number] 16:06:54Ejection FractionSLEH ECHO HEARTLAB [facility] [id number] 16:06:54Ejection FractionSLEH ECHO [facility]ARTLAB [facility] 2021-06-09 16:06:54Ejection FractionSLEH ECHO HEARTLAB [facility] [id number] 16:06:54Ejection FractionSLEH ECHO HEARTLAB MKCK[facility] [id number] 06:23:12 Test Item Value Reference Range Interpretation Comments POC-GLUCOSE METER 250 mg/dL 70-110 H : [facility] (test code = [place], 1538) [address]: [employer] Associate/Techni kelle ID = [id number] for Tavia Bruce BASIC METABOLIC [id number] 04:37:07 Test Item Value Reference Range Interpretation Comments SODIUM (BEAKER) 135 meq/L 136-145 L (test code = 381) POTASSIUM (BEAKER) 3.9 meq/L 3.5-5.1 (test code = 379) CHLORIDE (BEAKER) 99 meq/L 98-107 (test code = 382) CO2 (BEAKER) (test 25 meq/L 22-29 code = 355) BLOOD UREA NITROGEN 20 mg/dL 7-21 (BEAKER) (test code = 354) CREATININE (BEAKER) 3.41 mg/dL 0.57-1.25 H (test code = 358) GLUCOSE RANDOM 271 mg/dL 70-105 H (BEAKER) (test code = 652) CALCIUM (BEAKER) 8.2 mg/dL 8.4-10.2 L (test code = 697) EGFR (BEAKER) (test 14 mL/min/1.73 ESTIMA LEVI GFR IS code = 1092) sq m NOT ACCURATE CREATININE CLEARANCE IN PREDICTING GLOMERULAR FILTRATION RATE . ESTIMATED GFR I S NOT APPLICABLE FOR DIALYSIS PATIEN TS. [employer] ID - RAKAN [id number] 04:30:49 Test Item Value Reference Range Interpretation Comments PHOSPHORUS (BEAKER) (test code = 3.8 mg/dL 2.3-4.7 604) [employer] ID - RAKAN [id number] 04:30:48 Test Item Value Reference Range Interpretation Comments MAGNESIUM (BEAKER) (test code = 2.0 mg/dL 1.6-2.6 627) [employer] ID Bassam [place] WCBC W/PLT COUNT & AUTO [id number] 03:53:11 Test Item Value Reference Range Interpretation Comments WHITE BLOOD CELL COUNT (BEAKER) 3.2 K/ L 3.5-10.5 L (test code = 775) RED BLOOD CELL COUNT (BEAKER) 2.73 M/ L 3.93-5.22 L (test code = 761) HEMOGLOBIN (BEAKER) (test code = 8.3 GM/DL 11.2-15.7 L 410) HEMATOCRIT (BEAKER) (test code = 26.1 % 34.1-44.9 L 411) MEAN CORPUSCULAR VOLUME (BEAKER) 95.6 fL 79.4-94.8 H (test code = 753) MEAN CORPUSCULAR HEMOGLOBIN 30.4 pg 25.6-32.2 (BEAKER) (test code = 751) MEAN CORPUSCULAR HEMOGLOBIN CONC 31.8 GM/DL 32.2-35.5 L (BEAKER) (test code = 752) RED CELL DISTRIBUTION WIDTH 15.7 % 11.7-14.4 H (BEAKER) (test code = 412) PLATELET COUNT (BEAKER) (test code 84 K/CU MM 150-450 L = 756) MEAN PLATELET VOLUME (BEAKER) 11.8 fL 9.4-12.3 (test code = 754) NUCLEATED RED BLOOD CELLS (BEAKER) 0 /100 WBC 0-0 (test code = 413) NEUTROPHILS RELATIVE PERCENT 67 % (BEAKER) (test code = 429) LYMPHOCYTES RELATIVE PERCENT 18 % (BEAKER) (test code = 430) MONOCYTES RELATIVE PERCENT 12 % (BEAKER) (test code = 431) EOSINOPHILS RELATIVE PERCENT 2 % (BEAKER) (test code = 432) BASOPHILS RELATIVE PERCENT 1 % (BEAKER) (test code = 437) NEUTROPHILS ABSOLUTE COUNT 2.12 K/ L 1.56-6.13 (BEAKER) (test code = 670) LYMPHOCYTES ABSOLUTE COUNT 0.56 K/ L 1.18-3.74 L (BEAKER) (test code = 414) MONOCYTES ABSOLUTE COUNT (BEAKER) 0.39 K/ L 0.24-0.36 H (test code = 415) EOSINOPHILS ABSOLUTE COUNT 0.07 K/ L 0.04-0.36 (BEAKER) (test code = 416) BASOPHILS ABSOLUTE COUNT (BEAKER) 0.03 K/ L 0.01-0.08 (test code = 417) IMMATURE GRANULOCYTES-RELATIVE 1 % 0-1 PERCENT (BEAKER) (test code = 2801) Hepatitis panel, [id number] 23:49:54 Test Item Value Reference Range Interpretation Comments Hep A IgM (test code = Nonreactive Nonreactive 75653-5) Hep B C IgM (test code = Nonreactive Nonreactive 00681-3) Hepatitis C Ab (test code = Nonreactive Nonreactive 61222-1) Hepatitis B surface antigen Nonreactive Nonreactive (test code = 5195-3) BRANDI (test code = BRANDI) [employer] Associate ID - DB Lab Interpretation (test Normal code = 69452-9) [facility] panel, [id number] 23:49:54 Test Item Value Reference Range Interpretation Comments Hep A IgM (test code = Nonreactive Nonreactive 84095-0) Hep B C IgM (test code = Nonreactive Nonreactive 57057-7) Hepatitis C Ab (test code = Nonreactive Nonreactive 19145-2) Hepatitis B surface antigen Nonreactive Nonreactive (test code = 5195-3) BRANDI (test code = BRANDI) [employer] Associate ID - DB Lab Interpretation (test Normal code = 72522-5) [facility] panel, [id number] 23:49:54 Test Item Value Reference Range Interpretation Comments Hep A IgM (test code = Nonreactive Nonreactive 95754-6) Hep B C IgM (test code = Nonreactive Nonreactive 37826-6) Hepatitis C Ab (test code = Nonreactive Nonreactive 77539-1) Hepatitis B surface antigen Nonreactive Nonreactive (test code = 5195-3) BRANDI (test code = BRANDI) [employer] ID - DB Lab Interpretation (test Normal code = 75593-1) [facility] panel, [id number] 23:49:54 Test Item Value Reference Range Interpretation Comments Hep A IgM (test code = Nonreactive Nonreactive 44250-2) Hep B C IgM (test code = Nonreactive Nonreactive 81416-4) Hepatitis C Ab (test code = Nonreactive Nonreactive 72707-2) Hepatitis B surface antigen Nonreactive Nonreactive (test code = 5195-3) BRANDI (test code = BRANDI) [employer] Associate ID - DB Lab Interpretation (test Normal code = 23962-9) [facility] panel, [id number] 23:49:54 Test Item Value Reference Range Interpretation Comments Hep A IgM (test code = Nonreactive Nonreactive 34044-0) Hep B C IgM (test code = Nonreactive Nonreactive 58864-3) Hepatitis C Ab (test code = Nonreactive Nonreactive 62814-6) Hepatitis B surface antigen Nonreactive Nonreactive (test code = 5195-3) BRANDI (test code = BRANDI) [employer] Associate ID - DB Lab Interpretation (test Normal code = 74988-4) [facility] panel, [id number] 23:49:54 Test Item Value Reference Range Interpretation Comments Hep A IgM (test code = Nonreactive Nonreactive 72887-3) Hep B C IgM (test code = Nonreactive Nonreactive 88880-7) Hepatitis C Ab (test code = Nonreactive Nonreactive 42609-5) Hepatitis B surface antigen Nonreactive Nonreactive (test code = 5195-3) BRANDI (test code = BRANDI) [employer] Associate ID - DB Lab Interpretation (test Normal code = 86385-9) [facility] panel, [id number] 23:49:54 Test Item Value Reference Range Interpretation Comments Hep A IgM (test code = Nonreactive Nonreactive 03893-9) Hep B C IgM (test code = Nonreactive Nonreactive 07103-9) Hepatitis C Ab (test code = Nonreactive Nonreactive 34769-1) Hepatitis B surface antigen Nonreactive Nonreactive (test code = 5195-3) BRANDI (test code = BRANDI) [employer] Associate ID - DB Lab Interpretation (test Normal code = 97911-7) [facility] panel, [id number] 23:49:54 Test Item Value Reference Range Interpretation Comments Hep A IgM (test code = Nonreactive Nonreactive 71490-9) Hep B C IgM (test code = Nonreactive Nonreactive 37720-3) Hepatitis C Ab (test code = Nonreactive Nonreactive 55947-3) Hepatitis B surface antigen Nonreactive Nonreactive (test code = 5195-3) BRANDI (test code = BRANDI) [employer] ID - DB Lab Interpretation (test Normal code = 60160-5) [facility] panel, [id number] 23:49:54 Test Item Value Reference Range Interpretation Comments Hep A IgM (test code = Nonreactive Nonreactive 29959-0) Hep B C IgM (test code = Nonreactive Nonreactive 89516-6) Hepatitis C Ab (test code = Nonreactive Nonreactive 21750-4) Hepatitis B surface antigen Nonreactive Nonreactive (test code = 5195-3) BRANDI (test code = BRANDI) [employer] Associate ID - DB Lab Interpretation (test Normal code = 99015-9) [facility] panel, [id number] 23:49:54 Test Item Value Reference Range Interpretation Comments Hep A IgM (test code = Nonreactive Nonreactive 36364-1) Hep B C IgM (test code = Nonreactive Nonreactive 36708-2) Hepatitis C Ab (test code = Nonreactive Nonreactive 02838-1) Hepatitis B surface antigen Nonreactive Nonreactive (test code = 5195-3) BRANDI (test code = BRANDI) [employer] ID - DB Lab Interpretation (test Normal code = 83596-6) [facility] PANEL, [id number] 23:49:54 Test Item Value Reference Range Interpretation Comments HEPATITIS A IGM ANTIBODY (BEAKER) Nonreactive Nonreactive (test code = 498) HEPATITIS B CORE IGM ANTIBODY Nonreactive Nonreactive (BEAKER) (test code = 645) HEPATITIS C ANTIBODY (BEAKER) Nonreactive Nonreactive (test code = 367) HEPATITIS B SURFACE ANTIGEN (2) Nonreactive Nonreactive (BEAKER) (test code = 2585) [employer] ID - DBPOCT-GLUCOSE [id number] 21:22:04 Test Item Value Reference Range Interpretation Comments POC-GLUCOSE METER 193 mg/dL 70-110 H : TESTED A T [facility] 6720 (BEAKER) (test code = [place], 1538) [address]: [employer] Associate/Techni kelle ID = [id number] for Tavia Bruce Hepatitis B surface [id number] 13:29:36 Test Item Value Reference Range Interpretation Comments Hepatitis B surface Nonreactive Nonreactive antigen (test code = 5195-3) BRANDI (test code = BRANDI) Specimen is considered negative for HBsAg. Lab Interpretation (test Normal code = 03018-0) [facility] [id number] 13:29:36 Test Item Value Reference Range Interpretation Comments Hepatitis B surface Nonreactive Nonreactive antigen (test code = 5195-3) BRANDI (test code = BRANDI) Specimen is considered negative for HBsAg. Lab Interpretation (test Normal code = 82493-5) [facility] B surface [id number] 13:29:36 Test Item Value Reference Range Interpretation Comments Hepatitis B surface Nonreactive Nonreactive antigen (test code = 5195-3) BRANDI (test code = BRANDI) Specimen is considered negative for HBsAg. Lab Interpretation (test Normal code = 99051-8) [facility] B surface [id number] 13:29:36 Test Item Value Reference Range Interpretation Comments Hepatitis B surface Nonreactive Nonreactive antigen (test code = 5195-3) BRANDI (test code = BRANDI) Specimen is considered negative for HBsAg. Lab Interpretation (test Normal code = 69755-0) [facility] B surface [id number] 13:29:36 Test Item Value Reference Range Interpretation Comments Hepatitis B surface Nonreactive Nonreactive antigen (test code = 5195-3) BRANDI (test code = BRANDI) Specimen is considered negative for HBsAg. Lab Interpretation (test Normal code = 59767-1) [facility] B surface [id number] 13:29:36 Test Item Value Reference Range Interpretation Comments Hepatitis B surface Nonreactive Nonreactive antigen (test code = 5195-3) BRANDI (test code = BRANDI) Specimen is considered negative for HBsAg. Lab Interpretation (test Normal code = 80085-1) [facility] [id number] 13:29:36 Test Item Value Reference Range Interpretation Comments Hepatitis B surface Nonreactive Nonreactive antigen (test code = 5195-3) BRANDI (test code = BRANDI) Specimen is considered negative for HBsAg. Lab Interpretation (test Normal code = 14641-2) [facility] B surface [id number] 13:29:36 Test Item Value Reference Range Interpretation Comments Hepatitis B surface Nonreactive Nonreactive antigen (test code = 5195-3) BRANDI (test code = BRANDI) Specimen is considered negative for HBsAg. Lab Interpretation (test Normal code = 21849-2) [facility] [id number] 13:29:36 Test Item Value Reference Range Interpretation Comments Hepatitis B surface Nonreactive Nonreactive antigen (test code = 5195-3) BRANDI (test code = BRANDI) Specimen is considered negative for HBsAg. Lab Interpretation (test Normal code = 94387-1) [facility] B surface [id number] 13:29:36 Test Item Value Reference Range Interpretation Comments Hepatitis B surface Nonreactive Nonreactive antigen (test code = 5195-3) BRANDI (test code = BRANDI) Specimen is considered negative for HBsAg. Lab Interpretation (test Normal code = 66510-9) [facility] B SURFACE [id number] 13:29:36 Test Item Value Reference Range Interpretation Comments HEPATITIS B SURFACE ANTIGEN (2) Nonreactive Nonreactive (BEAKER) (test code = 2585) Specimen is considered negative for HBsAg.U/S, ABDOMINAL, [id number] 13:10:00Abdomen limited area? Add comment if clarification is needed.- >LiverReason for exam:->hepatic nodularity reported [facility] : 1955 Sex: FFINAL REPORT TECHNIQUE: Grayscale ultrasound of the right abdomen. INDICATION: hepatic nodularity reported. COMPARISON: None. FINDINGS: MIDLINE VASCULATURE: The visualized inferior vena cava is unremarkable. The maximum visualized aortic diameter is 1.7 cm. LIVER: The right hepatic lobe is mildly enlarged 17.3 cm in length. Heterogeneous echotexture with questionable nodularity. No focal lesions. The main portal vein is patent and measures 1.9 cm in diameter. BILIARY:Gallbladder: Stones and sludge in the gallbladder. No gallbladder wall thickening, pericholecysticfluid, or distention. Negative sonographic Mills sign.Common bile duct measures 1 cm, dilated. No intrahepatic biliary ductal dilatation. PANCREAS: Incompletely visualized due to overlying bowel gas. Partially visualized pancreatic body is normal. PERITONEUM: Trace perihepatic free fluid. RIGHT KIDNEY: The right kidney measures 8.9 x 3 x 4.1 cm with a thin renal cortex. No hydronephrosis. There are several right renal lesions, some of which are cysts but others which are indeterminate. There are several renal lesions which measure up to 1.7 cm and are anechoic, most consistent with simple renal cyst. A right interpolar renal lesion which could be hypoechoic is too small to definitively characterize and measures 0.6 cm. No routine follow-up imaging is recommended. Small right pleural effusion. IMP RESSION: 1.Stones and sludge in the gallbladder with a dilated common bile duct. Further evaluation with a MRI of the abdomen with and without intravenous contrast with MRCP is recommended to evaluate for a common bile duct obstruction. 2.The thickening of the gallbladder wall is likely due to the liver disease given the lack of gallbladder distention. 3.There is heterogeneous liver echotexture with questionable liver nodularity. Consider further evaluation for underlying liver disease to exclude cirrhosis. Signed: Florian Webb MDRort Verified Date/Time: 06/08/2021 13:10:45 SARS-COV2/RT-PCR ([facility]) 2021-06-08 12:35:29 Test Item Value Reference Range Interpretation Comments SARS-COV2/RT-PCR (test Negative Not Detected, Negative, code = 3404868) See external report for linked test SARS-COV-[address] [facility] (test code = 8158153) Negative result for this test determines that SARS-CoV-2 RNA was not present in the specimen above the Limit of Detection (LOD). However, Negative results do not preclude SARS-CoV-2 infection and should not be used as the sole basis for treatment or patient management decisions. Negative results mustbe combined with clinical observations, patient history, and epidemiological information. A false negative result may occur if a specimen is improperly collected, transported or handled. A false negative result should be considered if patient's recent exposures or clinical presentation indicate that COVID-19 (SARS-CoV-2) is likely and diagnostic tests for other causes of illness are negative. Re-testing should be considered in cases of suspected false negatives.The limit of detection for this assay is 800 copies/mL.This SARS CoV-2 test is a real-time RT-PCR test intended for the qualitative detection of nucleic acid from SARS-CoV-2 in a nasopharyngeal swab specimen collected from individuals susp ected of COVID-19 by their healthcare provider.This test has not been Food and Drug Administration (FDA) cleared or approved. This is a modified version of an approved Emergency Use Authorization (EUA) and is in the process of review by the FDA. Once authorized by the FDA, the issued EUA will be effective until the declaration that circumstances exist justifying the authorization of the emergency use of in vitro diagnostic tests for detection and/or diagnosis of COVID-19 is terminated under Section 564(b)(2) of the Act or the EUA is revoked under Section 564(g) of the Act.Fact Sheet for Healthcare Providers:https://www.deliciousidel.Myreks/sites/default/files/product/documents/Fact_Shee x_MJ_Tceohdhfd_Rzxo_AQFF-NbQ-1.pdfFact Sheet for Healthcare Patients:https://www.[employer].Myreks/sites/default/files/product/ documents/Htrr_Tgqem_Jqaunpus_Uwdl_FVWE-GpH-8.pdfPerforming Laboratory:[facility], [place] [address]Kljqfdh D, 25-Hydroxy 2021-06-08 11:10:06 Test Item Value Reference Range Interpretation Comments Vitamin D 25-Hydroxy 16.7 ng/mL 6.6-49.9 (test code = 2764) BRANDI (test code = BRANDI) Effective 01/12/2017: Reference Range ChangeNew: 6.6-49.9 ng/mL Previous: 13.0-47.8 ng/mL Recommended Vitamin D Target Range: 30.0-40.0 ng/mLOperator ID - DB Lab Interpretation (test Normal code = 09678-7) [facility], [id number] 11:10:06 Test Item Value Reference Range Interpretation Comments Vitamin D 25-Hydroxy 16.7 ng/mL 6.6-49.9 (test code = 2764) BRANDI (test code = BRANDI) Effective 01/12/2017: Reference Range ChangeNew: 6.6-49.9 ng/mL Previous: 13.0-47.8 ng/mL Recommended Vitamin D Target Range: 30.0-40.0 ng/mLOperator ID - DB Lab Interpretation (test Normal code = 05561-0) [facility], 59-[id number] 11:10:06 Test Item Value Reference Range Interpretation Comments Vitamin D 25-Hydroxy 16.7 ng/mL 6.6-49.9 (test code = 2764) BRANDI (test code = BRANDI) Effective 01/12/2017: Reference Range ChangeNew: 6.6-49.9 ng/mL Previous: 13.0-47.8 ng/mL Recommended Vitamin D Target Range: 30.0-40.0 ng/mLOperator ID - DB Lab Interpretation (test Normal code = 32005-8) [facility], 49-[id number] 11:10:06 Test Item Value Reference Range Interpretation Comments Vitamin D 25-Hydroxy 16.7 ng/mL 6.6-49.9 (test code = 2764) BRANDI (test code = BRANDI) Effective 01/12/2017: Reference Range ChangeNew: 6.6-49.9 ng/mL Previous: 13.0-47.8 ng/mL Recommended Vitamin D Target Range: 30.0-40.0 ng/mLOperator ID - DB Lab Interpretation (test Normal code = 47712-0) [facility], [id number] 11:10:06 Test Item Value Reference Range Interpretation Comments Vitamin D 25-Hydroxy 16.7 ng/mL 6.6-49.9 (test code = 2764) BRANDI (test code = BRANDI) Effective 01/12/2017: Reference Range ChangeNew: 6.6-49.9 ng/mL Previous: 13.0-47.8 ng/mL Recommended Vitamin D Target Range: 30.0-40.0 ng/mLOperator ID - DB Lab Interpretation (test Normal code = 64466-9) [facility], 13-[id number] 11:10:06 Test Item Value Reference Range Interpretation Comments Vitamin D 25-Hydroxy 16.7 ng/mL 6.6-49.9 (test code = 2764) BRANDI (test code = BRANDI) Effective 01/12/2017: Reference Range ChangeNew: 6.6-49.9 ng/mL Previous: 13.0-47.8 ng/mL Recommended Vitamin D Target Range: 30.0-40.0 ng/mLOperator ID - DB Lab Interpretation (test Normal code = 84091-7) [facility], 74-[id number] 11:10:06 Test Item Value Reference Range Interpretation Comments Vitamin D 25-Hydroxy 16.7 ng/mL 6.6-49.9 (test code = 2764) BRANDI (test code = BRANDI) Effective 01/12/2017: Reference Range ChangeNew: 6.6-49.9 ng/mL Previous: 13.0-47.8 ng/mL Recommended Vitamin D Target Range: 30.0-40.0 ng/mLOperator ID - DB Lab Interpretation (test Normal code = 37493-6) [facility], 61-[id number] 11:10:06 Test Item Value Reference Range Interpretation Comments Vitamin D 25-Hydroxy 16.7 ng/mL 6.6-49.9 (test code = 2764) BRANDI (test code = BRANDI) Effective 01/12/2017: Reference Range ChangeNew: 6.6-49.9 ng/mL Previous: 13.0-47.8 ng/mL Recommended Vitamin D Target Range: 30.0-40.0 ng/mLOperator ID - DB Lab Interpretation (test Normal code = 40985-0) [facility], 26-[id number] 11:10:06 Test Item Value Reference Range Interpretation Comments Vitamin D 25-Hydroxy 16.7 ng/mL 6.6-49.9 (test code = 2764) BRANDI (test code = BRANDI) Effective 01/12/2017: Reference Range ChangeNew: 6.6-49.9 ng/mL Previous: 13.0-47.8 ng/mL Recommended Vitamin D Target Range: 30.0-40.0 ng/mLOperator ID - DB Lab Interpretation (test Normal code = 09772-7) [facility], 92-[id number] 11:10:06 Test Item Value Reference Range Interpretation Comments Vitamin D 25-Hydroxy 16.7 ng/mL 6.6-49.9 (test code = 2764) BRANDI (test code = BRANDI) Effective 01/12/2017: Reference Range ChangeNew: 6.6-49.9 ng/mL Previous: 13.0-47.8 ng/mL Recommended Vitamin D Target Range: 30.0-40.0 ng/mLOperator ID - DB Lab Interpretation (test Normal code = 56901-6) [facility], [id number] 11:10:06 Test Item Value Reference Range Interpretation Comments VITAMIN D 25-OH (BEAKER) (test 16.7 ng/mL 6.6-49.9 code = 2764) Effective 01/12/2017: Reference Range ChangeNew: 6.6-49.9 ng/mL Previous: 13.0-47.8 ng/mLRecommended Vitamin D Target Range: 30.0-40.0 ng/mLOperator ID - DBPTH, [id number] 11:05:08 Test Item Value Reference Range Interpretation Comments PTH (test code = 2731-8) 449.7 pg/mL 8.5-72.5 H BRANDI (test code = BRANDI) [employer] ID - ADMIN Lab Interpretation (test Abnormal code = 08950-7) [facility], [id number] 11:05:08 Test Item Value Reference Range Interpretation Comments PTH (test code = 2731-8) 449.7 pg/mL 8.5-72.5 H BRANDI (test code = BRANDI) [employer] ID - ADMIN Lab Interpretation (test Abnormal code = 93796-6) [facility], [id number] 11:05:08 Test Item Value Reference Range Interpretation Comments PTH (test code = 2731-8) 449.7 pg/mL 8.5-72.5 H BRANDI (test code = BRANDI) [employer] ID - ADMIN Lab Interpretation (test Abnormal code = 53866-1) [facility], [id number] 11:05:08 Test Item Value Reference Range Interpretation Comments PTH (test code = 2731-8) 449.7 pg/mL 8.5-72.5 H BRANDI (test code = BRANDI) [employer] ID - ADMIN Lab Interpretation (test Abnormal code = 16792-9) [facility], [id number] 11:05:08 Test Item Value Reference Range Interpretation Comments PTH (test code = 2731-8) 449.7 pg/mL 8.5-72.5 H BRANDI (test code = BRANDI) [employer] ID - ADMIN Lab Interpretation (test Abnormal code = 97787-3) [facility], [id number] 11:05:08 Test Item Value Reference Range Interpretation Comments PTH (test code = 2731-8) 449.7 pg/mL 8.5-72.5 H BRANDI (test code = BRANDI) [employer] ID - ADMIN Lab Interpretation (test Abnormal code = 74237-9) [facility], [id number] 11:05:08 Test Item Value Reference Range Interpretation Comments PTH (test code = 2731-8) 449.7 pg/mL 8.5-72.5 H BRANDI (test code = BRANDI) [employer] ID - ADMIN Lab Interpretation (test Abnormal code = 49508-9) [facility], [id number] 11:05:08 Test Item Value Reference Range Interpretation Comments PTH (test code = 2731-8) 449.7 pg/mL 8.5-72.5 H BRANDI (test code = BRANDI) [employer] ID - ADMIN Lab Interpretation (test Abnormal code = 32890-6) [facility], [id number] 11:05:08 Test Item Value Reference Range Interpretation Comments PTH (test code = 2731-8) 449.7 pg/mL 8.5-72.5 H BRANDI (test code = BRANDI) [employer] ID - ADMIN Lab Interpretation (test Abnormal code = 65546-4) [facility], [id number] 11:05:08 Test Item Value Reference Range Interpretation Comments PTH (test code = 2731-8) 449.7 pg/mL 8.5-72.5 H BRANDI (test code = BRANDI) [employer] ID - ADMIN Lab Interpretation (test Abnormal code = 63617-4) [facility] [id number] 11:05:08 Test Item Value Reference Range Interpretation Comments PARATHYROID HORMONE INTACT 449.7 pg/mL 8.5-72.5 H (BEAKER) (test code = 577) [employer] ID - [id number] 09:50:35 Test Item Value Reference Range Interpretation Comments FERRITIN (BEAKER) (test code = 926.02 ng/mL 5.00-275.00 H 361) [employer] ID - ADMINIRON, TIBC, % SAT. (WITHOUT FERRITIN)2021-06-08 09:30:51 Test Item Value Reference Range Interpretation Comments IRON (BEAKER) (test code = 547) 110.0 ug/dL 40.0-160.0 TOTAL IRON BINDING CAPACITY 135 ug/dL 250-450 L (BEAKER) (test code = 769) IRON % SATURATION (2) (BEAKER) 81 % 20-55 H (test code = 2590) [employer] ID - ADMINPOCT-GLUCOSE [id number] 07:11:26 Test Item Value Reference Range Interpretation Comments POC-GLUCOSE METER 199 mg/dL 70-110 H : TESTED A T BSC 6720 (BEAKER) (test code = YUDY [place], 1538) [address]: [employer]/Techni kelle ID = [id number] for Tavia Bruce Vitamin [id number] 06:28:47 Test Item Value Reference Range Interpretation Comments Vitamin B12 (test code = 1626 pg/mL 213-816 H 2132-9) BRANDI (test code = BRANDI) [employer] ID - ADMIN Lab Interpretation (test Abnormal code = 95415-4) [facility] [id number] 06:28:47 Test Item Value Reference Range Interpretation Comments Vitamin B12 (test code = 1626 pg/mL 213-816 H 2132-9) BRANDI (test code = BRANDI) [employer] ID - ADMIN Lab Interpretation (test Abnormal code = 41712-8) [facility] [id number] 06:28:47 Test Item Value Reference Range Interpretation Comments Vitamin B12 (test code = 1626 pg/mL 213-816 H 2132-9) BRANDI (test code = BRANDI) [employer] ID - ADMIN Lab Interpretation (test Abnormal code = 22579-1) [facility] [id number] 06:28:47 Test Item Value Reference Range Interpretation Comments Vitamin B12 (test code = 1626 pg/mL 213-816 H 2132-9) BRANDI (test code = BRANDI) [employer] ID - ADMIN Lab Interpretation (test Abnormal code = 92306-0) [facility] [id number] 06:28:47 Test Item Value Reference Range Interpretation Comments Vitamin B12 (test code = 1626 pg/mL 213-816 H 2132-9) BRANDI (test code = BRANDI) [employer] ID - ADMIN Lab Interpretation (test Abnormal code = 98505-8) [facility] [id number] 06:28:47 Test Item Value Reference Range Interpretation Comments Vitamin B12 (test code = 1626 pg/mL 213-816 H 2132-9) BRANDI (test code = BRANDI) [employer] ID - ADMIN Lab Interpretation (test Abnormal code = 48051-2) [facility] [id number] 06:28:47 Test Item Value Reference Range Interpretation Comments Vitamin B12 (test code = 1626 pg/mL 213-816 H 2132-9) BRANDI (test code = BRANDI) [employer] ID - ADMIN Lab Interpretation (test Abnormal code = 13804-7) [facility] [id number] 06:28:47 Test Item Value Reference Range Interpretation Comments Vitamin B12 (test code = 1626 pg/mL 213-816 H 2132-9) BRANDI (test code = BRANDI) [employer] ID - ADMIN Lab Interpretation (test Abnormal code = 00968-4) [facility] [id number] 06:28:47 Test Item Value Reference Range Interpretation Comments Vitamin B12 (test code = 1626 pg/mL 213-816 H 2132-9) BRANDI (test code = BRANDI) [employer] ID - ADMIN Lab Interpretation (test Abnormal code = 73647-1) [facility] [id number] 06:28:47 Test Item Value Reference Range Interpretation Comments Vitamin B12 (test code = 1626 pg/mL 213-816 H 2132-9) BRANDI (test code = BRANDI) [employer] ID - ADMIN Lab Interpretation (test Abnormal code = 66377-6) [facility] [id number] 06:28:47 Test Item Value Reference Range Interpretation Comments VITAMIN B12 (BEAKER) (test code = 1626 pg/mL 213-816 H 774) [employer] ID - ADMINBASIC METABOLIC [id number] 06:22:27 Test Item Value Reference Range Interpretation Comments SODIUM (BEAKER) 130 meq/L 136-145 L (test code = 381) POTASSIUM (BEAKER) 4.8 meq/L 3.5-5.1 (test code = 379) CHLORIDE (BEAKER) 98 meq/L 98-107 (test code = 382) CO2 (BEAKER) (test 20 meq/L 22-29 L code = 355) BLOOD UREA NITROGEN 47 mg/dL 7-21 H (BEAKER) (test code = 354) CREATININE (BEAKER) 5.60 mg/dL 0.57-1.25 H (test code = 358) GLUCOSE RANDOM 228 mg/dL 70-105 H (BEAKER) (test code = 652) CALCIUM (BEAKER) 8.0 mg/dL 8.4-10.2 L (test code = 697) EGFR (BEAKER) (test 8 mL/min/1.73 ESTIMAT ED GFR IS code = 1092) sq m NOT ACCURATE CREATININE CLEARANCE IN PREDICTING GLOMERULAR FILTRATION RATE . ESTIMATED GFR I S NOT APPLICABLE FOR DIALYSIS PATIEN TS. [employer] ID - [id number] 06:08:16 Test Item Value Reference Range Interpretation Comments MAGNESIUM (BEAKER) (test code = 2.3 mg/dL 1.6-2.6 627) [employer] ID - [id number] 06:08:16 Test Item Value Reference Range Interpretation Comments PHOSPHORUS (BEAKER) (test code = 5.6 mg/dL 2.3-4.7 H 604) [employer] ID - DBPROTHROMBIN TIME/[id number] 05:55:08 Test Item Value Reference Range Interpretation Comments PROTIME (BEAKER) 14.2 seconds 11.9-14.2 (test code = 759) INR (BEAKER) (test 1.12 See_Comment [Automat ed message] code = 370) The system [employer] management generated this result transmitted ref erence range: <=5.90. The reference range was not used to int erpret this result as normal/abnormal . RECOMMENDED COUMADIN/WARFARIN INR THERAPY RANGESSTANDARD DOSE: 2.0 - 3.0 Includes: PROPHYLAXIS forvenous thrombosis, systemic embolization; TREATMENT for venous thrombosis and/or pulmonary embolus.HIGH RISK: Target INR is 2.5-3.5 for patients with mechanical heart valves.CBC W/PLT COUNT & AUTO DIFFERENTIAL 2021-06-08 05:42:08 Test Item Value Reference Range Interpretation Comments WHITE BLOOD CELL COUNT (BEAKER) 3.8 K/ L 3.5-10.5 (test code = 775) RED BLOOD CELL COUNT (BEAKER) 2.69 M/ L 3.93-5.22 L (test code = 761) HEMOGLOBIN (BEAKER) (test code = 8.3 GM/DL 11.2-15.7 L 410) HEMATOCRIT (BEAKER) (test code = 26.1 % 34.1-44.9 L 411) MEAN CORPUSCULAR VOLUME (BEAKER) 97.0 fL 79.4-94.8 H (test code = 753) MEAN CORPUSCULAR HEMOGLOBIN 30.9 pg 25.6-32.2 (BEAKER) (test code = 751) MEAN CORPUSCULAR HEMOGLOBIN CONC 31.8 GM/DL 32.2-35.5 L (BEAKER) (test code = 752) RED CELL DISTRIBUTION WIDTH 15.8 % 11.7-14.4 H (BEAKER) (test code = 412) PLATELET COUNT (BEAKER) (test code 85 K/CU MM 150-450 L = 756) MEAN PLATELET VOLUME (BEAKER) 12.3 fL 9.4-12.3 (test code = 754) NUCLEATED RED BLOOD CELLS (BEAKER) 0 /100 WBC 0-0 (test code = 413) NEUTROPHILS RELATIVE PERCENT 63 % (BEAKER) (test code = 429) LYMPHOCYTES RELATIVE PERCENT 18 % (BEAKER) (test code = 430) MONOCYTES RELATIVE PERCENT 14 % (BEAKER) (test code = 431) EOSINOPHILS RELATIVE PERCENT 3 % (BEAKER) (test code = 432) BASOPHILS RELATIVE PERCENT 1 % (BEAKER) (test code = 437) NEUTROPHILS ABSOLUTE COUNT 2.37 K/ L 1.56-6.13 (BEAKER) (test code = 670) LYMPHOCYTES ABSOLUTE COUNT 0.68 K/ L 1.18-3.74 L (BEAKER) (test code = 414) MONOCYTES ABSOLUTE COUNT (BEAKER) 0.53 K/ L 0.24-0.36 H (test code = 415) EOSINOPHILS ABSOLUTE COUNT 0.12 K/ L 0.04-0.36 (BEAKER) (test code = 416) BASOPHILS ABSOLUTE COUNT (BEAKER) 0.04 K/ L 0.01-0.08 (test code = 417) IMMATURE GRANULOCYTES-RELATIVE 0 % 0-1 PERCENT (BEAKER) (test code = 2801) RAD, CHEST, 1 VIEW, NON [id number] 02:35:00Reason for exam:->shortness of breathShould this be performed at the bedside?->Yes [facility] 1955 Sex: FFINAL REPORT RAD, CHEST, 1 VIEW, NON DEPT INDICATION: shortness of breath COMPARISON: None FINDINGS: Portable frontal view of the chest. 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 Lungs and pleura: No airspace consolidation oreffusion. No pneumothorax. Heart and mediastinum: Unremarkable cardiomediastinal contours. Additional findings: Status post median sternotomy. Signed: Andrew Cayr [facility] Verified Date/Time: 06/08/2021 02:35:39 POCT-GLUCOSE [id number] 23:26:33 Test Item Value Reference Range Interpretation Comments POC-GLUCOSE METER 279 mg/dL 70-110 H : TESTED A T BSC 6720 (BEAKER) (test code = [place], 1538) [address]: [employer]/Techni kelle ID = [id number] for Tavia Bruce COMPREHENSIVE METABOLIC [id number] 22:28:11 Test Item Value Reference Range Interpretation Comments TOTAL PROTEIN 7.4 gm/dL 6.0-8.3 (BEAKER) (test code = 770) ALBUMIN (BEAKER) 2.9 g/dL 3.5-5.0 L (test code = 1145) ALKALINE PHOSPHATASE 105 U/L 40-150 (BEAKER) (test code = 346) BILIRUBIN TOTAL 0.4 mg/dL 0.2-1.2 (BEAKER) (test code = 377) SODIUM (BEAKER) (test 129 meq/L 136-145 L code = 381) POTASSIUM (BEAKER) 4.6 meq/L 3.5-5.1 (test code = 379) CHLORIDE (BEAKER) 96 meq/L 98-107 L (test code = 382) CO2 (BEAKER) (test 21 meq/L 22-29 L code = 355) BLOOD UREA NITROGEN 45 mg/dL 7-21 H (BEAKER) (test code = 354) CREATININE (BEAKER) 5.44 mg/dL 0.57-1.25 H (test code = 358) GLUCOSE RANDOM 326 mg/dL 70-105 H (BEAKER) (test code = 652) CALCIUM (BEAKER) 8.2 mg/dL 8.4-10.2 L (test code = 697) AST (SGOT) (BEAKER) 19 U/L 5-34 (test code = 353) ALT (SGPT) (BEAKER) 15 U/L 6-55 (test code = 347) EGFR (BEAKER) (test 8 mL/min/1.73 ESTIMAT ED GFR IS code = 1092) sq m NOT ACCURATE CREATININE CLEARANCE IN PREDICTING GLOMERULAR FILTRATION RATE . ESTIMATED GFR I S NOT APPLICABLE FOR DIALYSIS PATIEN TS. [employer] ID - DBVancomycin level, [id number] 22:19:31 Test Item Value Reference Range Interpretation Comments Vancomycin Rm (test 16.1 ug/mL code = 88331-2) BRANDI (test code = Reference Range: No BRANDI) NormalsOperator ID - DB [facility] [place][note 2], [id number] 22:19:31 Test Item Value Reference Range Interpretation Comments Vancomycin Rm (test 16.1 ug/mL code = 20882-5) BRANDI (test code = Reference Range: No BRANDI) NormalsOperator ID - DB [facility] [place][note 2], [id number] 22:19:31 Test Item Value Reference Range Interpretation Comments Vancomycin Rm (test 16.1 ug/mL code = 27925-5) BRANDI (test code = Reference Range: No BRANDI) NormalsOperator ID - DB [facility] [place][note 2], [id number] 22:19:31 Test Item Value Reference Range Interpretation Comments Vancomycin Rm (test 16.1 ug/mL code = 13857-9) BRANDI (test code = Reference Range: No BRANDI) NormalsOperator ID - DB [facility] [place][note 2], [id number] 22:19:31 Test Item Value Reference Range Interpretation Comments Vancomycin Rm (test 16.1 ug/mL code = 92555-7) BRANDI (test code = Reference Range: No BRANDI) NormalsOperator ID - DB [facility] [place][note 2], [id number] 22:19:31 Test Item Value Reference Range Interpretation Comments Vancomycin Rm (test 16.1 ug/mL code = 12255-8) BRANDI (test code = Reference Range: No BRANDI) NormalsOperator ID - DB [facility] [place][note 2], [id number] 22:19:31 Test Item Value Reference Range Interpretation Comments Vancomycin Rm (test 16.1 ug/mL code = 72020-7) BRANDI (test code = Reference Range: No BRANDI) NormalsOperator ID - DB [facility] [place][note 2], [id number] 22:19:31 Test Item Value Reference Range Interpretation Comments Vancomycin Rm (test 16.1 ug/mL code = 87731-8) BRANDI (test code = Reference Range: No BRANDI) NormalsOperator ID - DB [facility] Center[facility], [id number] 22:19:31 Test Item Value Reference Range Interpretation Comments Vancomycin Rm (test 16.1 ug/mL code = 34292-3) BRANDI (test code = Reference Range: No BRANDI) NormalsOperator ID - DB [facility], [id number] 22:19:31 Test Item Value Reference Range Interpretation Comments Vancomycin Rm (test 16.1 ug/mL code = 12686-6) BRANDI (test code = Reference Range: No BRANDI) NormalsOperator ID - DB [facility] Center[facility] L[facility], [id number] 22:19:31 Test Item Value Reference Range Interpretation Comments VANCOMYCIN RANDOM (BEAKER) (test 16.1 ug/mL code = 523) Reference Range: No NormalsOperator ID - DBCBC W/PLT COUNT & AUTO [id number] 22:05:27 Test Item Value Reference Range Interpretation Comments WHITE BLOOD CELL COUNT (BEAKER) 3.4 K/ L 3.5-10.5 L (test code = 775) RED BLOOD CELL COUNT (BEAKER) 2.85 M/ L 3.93-5.22 L (test code = 761) HEMOGLOBIN (BEAKER) (test code = 8.7 GM/DL 11.2-15.7 L 410) HEMATOCRIT (BEAKER) (test code = 27.7 % 34.1-44.9 L 411) MEAN CORPUSCULAR VOLUME (BEAKER) 97.2 fL 79.4-94.8 H (test code = 753) MEAN CORPUSCULAR HEMOGLOBIN 30.5 pg 25.6-32.2 (BEAKER) (test code = 751) MEAN CORPUSCULAR HEMOGLOBIN CONC 31.4 GM/DL 32.2-35.5 L (BEAKER) (test code = 752) RED CELL DISTRIBUTION WIDTH 15.7 % 11.7-14.4 H (BEAKER) (test code = 412) PLATELET COUNT (BEAKER) (test code 83 K/CU MM 150-450 L = 756) MEAN PLATELET VOLUME (BEAKER) 11.6 fL 9.4-12.3 (test code = 754) NUCLEATED RED BLOOD CELLS (BEAKER) 0 /100 WBC 0-0 (test code = 413) NEUTROPHILS RELATIVE PERCENT 66 % (BEAKER) (test code = 429) LYMPHOCYTES RELATIVE PERCENT 18 % (BEAKER) (test code = 430) MONOCYTES RELATIVE PERCENT 12 % (BEAKER) (test code = 431) EOSINOPHILS RELATIVE PERCENT 3 % (BEAKER) (test code = 432) BASOPHILS RELATIVE PERCENT 1 % (BEAKER) (test code = 437) NEUTROPHILS ABSOLUTE COUNT 2.25 K/ L 1.56-6.13 (BEAKER) (test code = 670) LYMPHOCYTES ABSOLUTE COUNT 0.62 K/ L 1.18-3.74 L (BEAKER) (test code = 414) MONOCYTES ABSOLUTE COUNT (BEAKER) 0.40 K/ L 0.24-0.36 H (test code = 415) EOSINOPHILS ABSOLUTE COUNT 0.09 K/ L 0.04-0.36 (BEAKER) (test code = 416) BASOPHILS ABSOLUTE COUNT (BEAKER) 0.04 K/ L 0.01-0.08 (test code = 417) IMMATURE GRANULOCYTES-RELATIVE 1 % 0-1 PERCENT (BEAKER) (test code = 2801) POCT GLUCOSE (AUTOMATED)2021-05-22 23:21:50 Test Item Value Reference Range Interpretation Comments POCT GLU (test code = 5703085383) 129 mg/dL 70-110 H Lab Interpretation (test code = Abnormal 38192-8) [facility] GLUCOSE (AUTOMATED)2021-05-22 17:41:02 Test Item Value Reference Range Interpretation Comments POCT GLU (test code = 4995393523) 120 mg/dL 70-110 H Lab Interpretation (test code = Abnormal 24372-6) [facility] GLUCOSE (AUTOMATED)2021-05-22 13:46:20 Test Item Value Reference Range Interpretation Comments POCT GLU (test code = 3092002211) 174 mg/dL 70-110 H Lab Interpretation (test code = Abnormal 36082-0) [facility] (NA, K, CL, CO2, GLUCOSE, BUN, CREATININE, CA)2021-05-22 10:34:14 Test Item Value Reference Range Interpretation Comments NA (test code = 128 mmol/L 135-145 L 0120766438) K (test code = 5.2 mmol/L 3.5-5.0 H 9277765316) CL (test code = 95 mmol/L 98-108 L 2923851352) CO2 TOTAL (test code = 24 mmol/L 23-31 7937804288) AGAP (test code = 2-16 4120269775) BUN (test code = 43 mg/dL 7-23 H 0498907395) GLUCOSE (test code = 182 mg/dL 70-110 H 7028583022) CREATININE (test code = 5.93 mg/dL 0.50-1.04 H 3057406455) CALCIUM (test code = 8.0 mg/dL 8.6-10.6 L 9242751798) eGFR (test code = mL/min/1.73m2 0099990173) BRANDI (test code = BRANDI) Association of [...] tests). Lab Interpretation Abnormal (test code = 33310-2) [facility] WITH [id number] 10:25:51 Test Item Value Reference Range Interpretation [...] (test code = 50.7 fL 39.0-49.9 H 44803-6) RDW-CV (test code = 14.6 % 12.0-15.5 788-0) PLT (test code = See_Comment L [Automated 777-3) message] The sy stem which generated this result transmitted reference range : 166 - 358 10*3/ ?L. The reference r alba was not used to interpret this result as normal/abnormal . MPV (test code = 11.2 fL 9.5-12.9 96094-9) NRBC/100 WBC (test See_Comment [Automat ed code = 3327428256) message] The system which generated this result transmitted reference range : 0.0 - 10.0 /100 WBCs. The refer ence range was not u sed to interpret th is result as normal/abnormal . NRBC x10^3 (test code <0.01 See_Comment [Auto mated = 5933688603) message] The s ystem which generated this result transmitted reference range : 10*3/?L. The reference range was not used to interpret this result as normal/abnormal . GRAN MAT (NEUT) % 75.4 % (test code = 770-8) IMM GRAN % (test code 0.70 % = 9767306932) LYMPH % (test code = 12.5 % 736-9) MONO % (test code = 10.3 % 5905-5) EOS % (test code = 0.8 % 713-8) BASO % (test code = 0.3 % 706-2) GRAN MAT x10^3(ANC) 4.54 10*3/uL 1.88-7.09 (test code = 2242222540) IMM GRAN x10^3 (test 0.04 10*3/uL 0.00-0.06 code = 3469531846) LYMPH x10^3 (test code 0.75 10*3/uL 1.32-3.29 L = 731-0) MONO x10^3 (test code 0.62 10*3/uL 0.33-0.92 = 742-7) EOS x10^3 (test code = 0.05 10*3/uL 0.03-0.39 711-2) BASO x10^3 (test code <0.03 0.01-0.07 = 704-7) Lab Interpretation Abnormal (test code = 60692-6) [facility] Center[facility] [id number]-[id number] 05:24:06 Test Item Value Reference Range Interpretation Comments NT-proBNP (test code 362669 pg/mL See_Comment H [Autom ated = 3454239453) message] The system which generated this result transmitted reference range : <=125. The reference range was not used to interpret this result as normal/abnormal . BRANDI (test code = BRANDI) Biotin has been reported to cause a negative bias, interpret results relative to patient's use of biotin. Lab Interpretation Abnormal (test code = 31799-9) [facility] CenterGlucose, [id number] 04:46:54 Test Item Value Reference Range Interpretation Comments GLUCOSE (test code = 1149946051) 107 mg/dL 70-110 Lab Interpretation (test code = Normal 09991-4) [facility] CenterProtein Total [id number] 04:46:34 Test Item Value Reference Range Interpretation Comments T PROTEIN (test code = 6099010765) 6.1 g/dL 6.3-8.2 L Lab Interpretation (test code = Abnormal 17743-6) [facility] CenterLACTATE [id number] 04:46:18 Test Item Value Reference Range Interpretation Comments LDH (test code = 2299423991) 311 U/L 300-600 Lab Interpretation (test code = Normal 69820-6) [facility] CenterTROP[facility]IN [id number] 00:24:29 Test Item Value Reference Interpretation Comments Range TROPONIN I (test 0.084 ng/mL See_Comment H [Automated code = 7773727577) message] The system which generated this result [...] biotin. Lab Interpretation Abnormal (test code = 28583-2) [facility] CenterCyto Pleural [id number] 23:21:29 Test Item Value Reference Range Interpretation Comments Case Report (test code = Non-Gynecologic 5963118130) Cytology ?Case: [id number] ?Authorizing Provider: ?Candido Robison, DO ?Collected: ? 05/20/2021 1604 ?Ordering Location: ? ? [facility] Medicine Surgery Unit ?Received: ?05/20/2021 1631 ?Pathologist: ? Mariana, ? [place], MD ?Specimen: ? ?PLEURAL, RIGHT ? Final Diagnosis (test o2whyOIgCCSfj1ehVELjb code = 7242022305) GFuZzEwMzNcZnRuYmpcdW MxIHtccnRmMVxlcGljOTY cIWylcgPyGATxrRYtQ5Pi vbueAEldWT4kVN5jeZuxc BCgaJCqYKLiQlQhp3cmt3 99mKWru1msDLQSidcvvAj 3wIpxK31gb2G8WvdbP98v xXJjFBK7SNMmJEZsuRSoO CJmUJR9QFGxaEJaM7urHL FfBU4xvudhYKqnTKtmGYB bxGJ2VXZinWXuN9MwTVVu EEvsOCMpsus3QtOxZe3vi GVyeTcyMFxwYXJkXHBsYW luXGJcZnMyMFxwYXIgQS4 gIFBMRVVSQSwgUklHSFQ7 GHSGD2GBD1DAYHSUEFGeI mwMFBQ3AJZuxwBsWKIpOX 3wYyKMSHOWOrOfFz6BEM9 BTElHTkFOVCBDRUxMUyBc FqYvBRFJKMUNE69SFS8NL VxwYXJccGFyIFBhdWwgWW 37zvjiXZ0ZKLEcvPEutTH txLxert38XHJ9AYCiEkF9 LzIwMjJccHJvdGVjdDAgX HBsYWluXGZzMjAgICAyOj B3WMOVTNSjgbgsJBM4c6u ydGYxXHNzdGVjZjIyMDAw TOCcw7ddKTElqQHwSgIzC zNcZnRuYmpcdWMxXGRlZm Kuq9dnm033wYBjj8hiTRQ oKrA0qEXmYZGhpNafntf8 oCbkUrNvALBuu9lfvsEcQ mNoYXJzZXQwIEFyaWFsO3 66PCCeRIduk8men2FzTIE ewWXrp1Z1ZYWQYLdpQmQp M881d9rjy5grsbJraUT1W NFxJIS8ISbbrsXnhjC5PC myiMHhSjA1LWanysPrVUp yhgFelaBwCfl6KKUyC712 AUC4hJeco9ozVRQ5GMJxH GGjHyqtWp9aeCJtZ051BX YgYBDJMHQjrQo3SLRmviQ eqyJhuFFNl743Q129j4ai DPNagaSgrViDupcln5ymS 319XHBhcGVydzEyMjQwXH VnxXTgvWD3QERaWV5opuo hTCngVQypRXTuiuV1PZLt qBRwM9NvARJiCM5bknejP BP5OIltGHQvSGW4FrIrJB Qnn5Fiozz9JgJtik1vgk9 1ILM6n1ApjAufIUB6RQA7 ObApXv7ytKEpAWZjFT1rY pGmpKPeEUElzk91hLvcZK lbqkEbmA7nJxFaXNPeiAJ tYJTgBS1pkXSgDXLgkF7f cmxjXHBnYnJkcmhlYWRcc AoyaaNxRi5ltRpbCBP6MH ecB4bltX7nJfG3UUixM8k vpF1rOBl2AFfffPZ8LQZy eT2vSX7ljgepf5igDAxoC WmeBGMdxmX0jtV7DJCdrD ZgM6EjmK9mBFLuSY8ghkb sz2acQBW0NJabPHWhVXG2 NjIvSOEyp4Kbtbz1SqVch 3DnwIUtSGwmO62or362FQ LlsaQiK7kjqWDyyhuucCQ qqxrxYOqreaT1FUPkHNBu YWluXGYxXGZzMjBcbGFuZ zEwMzNcaGljaFxmMVxkYm EgLBSoXGbwJ3cjJoTxU3Q yXGZzMjBccGFyIEkgaGF2 LHDeUXRkn08usQm0MNXuc osqa8DsJZCboZTxmSHnuJ 7tupWgp7bhZRHyFQOyJTH eC7MqBNM4bBKbHHXktXRh qFR4YE5jteRrLB6kWJTrI nkgcmVzaWRlbnRzLCBmZW qsw9ayIL0iYNJxyOopoX1 pmJN1HPPff9rxqDRxqXCg i5grz5CacdShXDunXCTxL QedNGPrXPUvCT8pWGUwrN PcrpKbj4L5NdxxhKOlbyq aNzetrgA2OXetsuftAQGe WLiaS9vuPgIgJIAhpTphW iafu2DrXYQhOMDbOvxkpM FyfX0= Final Diagnosis Comment q4kaqCQgJOIuoAY6XcFxR (test code = [id number]) PNcz1hrp5EfxNGhwIIhOY vutBSmlcAftl01pYX0gQ6 4GU4kQXIkMhR1OLRqreV3 Rqw2HKAkSSGozBAgI923u 2aqm9bewoJwsVV4hYvpRH QcibwaTkW6RErsOUMzmwu tHHv4XLlhXXVzsVR5EZAx nNCpH1DzZDNfFX3jyul3S EA2ZJxxOLFbFfO3JLAvjV UuGTDfnVleKRdyg852KWF 1GwNsSQMxcxGlmUdgmD3q ZnMyMCBTbWVhcnMgYXJlI LCqpYImS3GfxNXaCNQcMC 7rBKChj3hupuUtEFClOF9 lB45msNAqy6VmLMbdKQom J6FegMBiOC8lXULjl50tW JXqKB6jtiOiHkIEhwLwFH thP75nudBdJ8TdjIUjhRR jadZfFdvwIK0lRMUnrq3= Clinical Information Clinical Hx: ESRD (test code = 3293046008) Gross Description (test c6devIRhBKNepXW1OiNoG code = 3628003136) GMzc3ypb5QnyAXwtAAaDM sdgEOxmtTxoa55iOS0cN9 1DX7hSFMrRfM0EMZoscP1 Uds3GHMeSZTxwLIlN973g 6gsb3gcqvKfnNU2qLnuBI WvfdbfZqK3FYywLTFkiyp kAZb1ZLnpQYCgqGN8RHLs iZFuM0ZzVHCzCJ7hwyf9M CL1VRmoWPVxYyJ0XCUhwZ OoQIWavSigSTfiv489FQO 8LfLrZHVcqtL2YDmaHVBa M9ItS7KvIVuoMIG3IJXvQ CBcXHQgMSBcXGZsIFxcbm V7c0obELYhePZgNCV1LDf caWQgNTEwMDIgXFxkYiBP JqQrUgDnBNT7LFU4NFFaQ Me1EJohZ5JQXHPuOES1KH LnOYy8OlX3OVm6FWNZTr6 kRXJ6XJRmNAh3MVV3BZI3 NCBcXHQgMiBcXGZsIFxcZ iBBcmlhbCBcXGZzIDEwIF eywvT2RHQiAAgiYKYbXaY ccGFyXGZzMjJccGFyIEEx LiAgUExFVVJBLCBSSUdIV KemIZmNBtDIAQ5VBZWHJw BGTFVJRFxwYXIgUmVjZWl 4YMYhBxQig1felYNmDEHy CgrpSO2pDQjbpMguokEki HVpZCBccGFyIFByZXBhcm HbJDGvl2nfXBDtSAptMQQ hcGFuaWNvbGFvdSBjeXRv s1LjbgdtEN3bEJXzRj0lI W5bb0GjkNTmmGAwk2Lnhm MbeiFyFURptQtkgdxat8f ibBvny0BxeXYpAY41SCOw nNSwSYO6QV8kmRteTEF9 Disclaimer (test code = c1fqaNVaVQNuf4jsDSZck 3780789554) GFuZzEwMzNcZnRuYmpcdW RgMAfqcdXePHwpj7PxF2O yMjAwMFxhbnNpXGRlZmxh nsdbQQItXIL7rmTgFNBiZ EeiDIGjNQhoWf9iiZZolF kqLaNfUDWrw9ypygBPZMq zSpEjK958EPYvKFjoc5zc o5JwDMMwoGIte5B8USYDr vjplOx8nZljF05nk9C5Nk lrV8ypRBMxJFXnM8TgMN6 pUYYxMxh0FLK3UCV1RKOf SKIuS6ZuLS0fMZHvuNNqS Jw0b2vwmCpiQTAbKXX9f2 avYViqicDjPS0yas6juCb 7n1kjztJvZGFcIIQuvTQQ KNSdB3JjhEqgGj3gyAm4o YijVuxqUHY8Twf1BI4qsz 74uny4kIhuMAPwzjarXgZ 4OMciMRQbqjorPOn7UQnn CPBsyKH7YNFnaCQjR2YtL TCbWA6ihlb3WVI3IMxnCZ LwWkB1BBCzsGAyGJRfpJv wUAsye389SOW8RoHhDQ3w K2Dbb6A1pM2jcWZqOBQtv LSoVsFqPTKmtn5kcLEwRB shx5OuDGC1aoV5wQHtyNM mJORtZQ65Fpxtp0PtJsei q7WvF64bmRE9GIetu7ieY X9nYeG6cnBmNYtik1nysK 7qNwI1HQtsSO1dOG3rJHQ loW9zttkdOARuPhBevfcv SITcnEwzqfJmNy0qhIxwK IC3PFzcN2oghB9yKlI8HZ teJ4bedQ0zDEg4FVjauAK 4IXKreE5hXH1gqehul1pm LDquXVxvLAFdhqY9stI8K GWgmVVaB7FgqS2pRSEnQB 0nqepye5znEMZ1SDkeUUU oDCZ3PoEnHGAxu2Pzblg5 WbOkn3MviYTvXJcaO85mp 520YZLyjxXxR0livLKjnb erkAYkbsmoDFapwcF1XHF mohGqa3SuCQCsUYS1KIzm YTuhbOPtNHOveYbeq3fqT 3RscGFyXHBsYWluXGYxXG ZzMjBcbGFuZzEwMzNcaGl jaFxmMVxkYmNoXGYxXGxv C7qwFeNhH3OmGAZePnSzc HRtC4jcDSrvgkAfILIvnn PlyQH1JTtnT6d2MAQuwmN bnZu9bhMaGfOeGFYpEMC5 BMwuzIFxBMRhi1Hbhjcor LLnNd6fnBEtZROydM2hMB XkVEMuYLhsJR5vbVo4KND BnPEybZIuKnDFYYZxLL82 bmJkAEGClbssp5P5MKvkQ THjs7EglVIeW8bqk8NiEF Yqw92wHC5eb8N1u4bwDBK 8YR9yb1WeVFBajNFbvYPb QZYqs9Gcokthq2UuEAQdc dWvl1ApKSCmxjWovVBcYO FdqoOzfx8zekClRFXuWDZ fC1XmczpmcMksroSnYSGd mu8snxFjYFE8GECPGKQtA TWrx1EixN7ltKFEOBF7lR Eynr8kfxWVwZRnTVExey5 0TCRrZC4cG4zjZQEcSUIq pxHdrSQdf7TpIICysQI3u TTwYX0IKuVIr15lDRPmJG UJehKuUYHniIysdMB5lwK 9aA3eVMvEEHBwFav+IFRo QORQRKYaBJ4uioJjs2Gup kTpmWxqGCOomNBnz6NtcD Hro6HsjXsuh4GftVYdmLZ uYC7mKEJurbqqTPYcJBEY FbGWNCVfauZ0h4VmRALjL TZyKVP8cSiagvb2HGPmmD 7bQNDkP2byvuvqIXddYAY dm0JteM6unISSuSFcq6Da gAYloSAGoSMuFS1jpbWjQ HuSXJkZABB5pbTaFLFje7 KlYCftD5bnG52hbIjjrNw 7kDH0ZBQ8fV1jDml+IFxw YXJccGFyIEFwcHJvcHJpY NPtoYuwxxYfX8RgcdTaqR 4ieECvmtSxUG8iGR0dE3R 8aJHeLDHajmZxh2eeALtq dmUgYmVlbiByZXZpZXdlZ CNuw3BaKCveJSZ8NBhcos BpbmNsdWRpbmcgSCZFLCB ElNEjqHKjVCW0LHsnkiPw poRjXF7mpU6bvNkojM8ab DYreAK7wgplFEBaEHNomL npYFMxIR4feYTwQQPxfeX KpMzmtXNwgV4mH3HcMVGx KBYqsa3lTJQgoP7mYWkkk 2VydmljZXMgYXJlIHBlcm Pjsk3aQQVnqNYBHU2SZEa qmURxw4UgweNqU3wSSGO9 NUQwNjYwMjgxKSBleGNlc MCvIYSwmj74OXUrlW9foD dkAZTkkU3udB8ueBmkhG1 kUhGaYpUkZVveJK9jWOWd N3xokOWnMDXwEJEcU5fkX aQlaB1prDpoLEzwJaFgWk FvHUruIMM9nR== Embedded Images (test code = 0139509223) [facility] GLUCOSE (AUTOMATED)2021-05-21 23:17:01 Test Item Value Reference Range Interpretation Comments POCT GLU (test code = 5564987142) 109 mg/dL 70-110 Lab Interpretation (test code = Normal 55986-8) [facility] [id number] 21:50:44 UNREMARKABLE LEUKOCYTES WITH ABSOLUTE LYMPHOPENIA. MODERATE NORMOCYTIC NORMOCHROMIC ANEMIA. MILD THROMBOCYTOPENIA.[facility] VITAMIN B12, [id number] 18:38:08 Test Item Value Reference Range Interpretation Comments VIT B12 (test code = >1000 240-930 H 9081600744) BRANDI (test code = BRANDI) Biotin has been reported to cause a positive bias, interpret results relative to patient's use of biotin. Lab Interpretation (test Abnormal code = 08183-7) [facility] D, [id number] 17:51:01 Test Item Value Reference Range Interpretation Comments VIT D 25OH (test code = 24 ng/mL 25-80 L 63505-5) BRANDI (test code = BRANDI) Deficiency: <20 ng/mLInsufficiency: 20-24 ng/mLOptimal: 25-80 ng/mL Lab Interpretation (test Abnormal code = 60376-0) [facility]2022-[facility] 17:42:20 Test Item Value Reference Range Interpretation Comments FOLATE SER (test code = 6.1 ng/mL 3.0-20.0 Biot in has been 2714747752) reported to cau se a positive bias, interpret resul ts relative to patient's use o f biotin. Lab Interpretation (test Normal code = 35020-0) [facility] GLUCOSE (AUTOMATED)2021-05-21 17:17:00 Test Item Value Reference Range Interpretation Comments POCT GLU (test code = 0414978493) 175 mg/dL 70-110 H Lab Interpretation (test code = Abnormal 09005-6) [facility]TR[facility] [id number] 14:52:32 Test Item Value Reference Interpretation Comments Range TROPONIN I (test 0.109 ng/mL See_Comment H [Automated code = 1504618275) message] The system which generated this result [...] biotin. Lab Interpretation Abnormal (test code = 66031-5) [facility] CenterIRON [id number] 14:49:31 Test Item Value Reference Range Interpretation Comments IRON (test code = 4202232820) 30 ug/dL 50-160 L TIBC (test code = 4202372025) 185 ug/dL 250-410 L % FE SAT (test code = 4239324838) 16 % 20-50 L Lab Interpretation (test code = Abnormal 45090-5) [facility]2021-[facility]-21 14:06:00 Test Item Value Reference Range Interpretation Comments POCT GLU (test code = 9545045352) 191 mg/dL 70-110 H Lab Interpretation (test code = Abnormal 37032-3) [facility] CenterFERRITIN [id number] 14:05:25 Test Item Value Reference Range Interpretation Comments FERRITIN (test code = 715.0 ng/mL 11.0-264.0 H 7798897087) BRANDI (test code = BRANDI) Biotin has been reported to cause a negative bias, interpret results relative to patient's use of biotin. Lab Interpretation (test Abnormal code = 83717-6) [facility] CenterN-TERMINAL [id number] 13:56:37 Test Item Value Reference Range Interpretation Comments NT-proBNP (test code 635394 pg/mL See_Comment H [Autom ated = 4083033101) message] The system which generated this result transmitted reference range : <=125. The reference range was not used to interpret this result as normal/abnormal . BRANDI (test code = BRANDI) Biotin has been reported to cause a negative bias, interpret results relative to patient's use of biotin. Lab Interpretation Abnormal (test code = 22179-2) [facility] CenterTROPONIN [id number] 13:43:04 Test Item Value Reference Interpretation Comments Range TROPONIN I (test 0.100 ng/mL See_Comment H [Automated code = 2999740258) message] The system which generated this result [...] biotin. Lab Interpretation Abnormal (test code = 76125-7) [facility] CenterHEPAT[facility] FUNCTION PANEL (59666) (ALB,T.PRO,BILI T,BU/BC,ALT,AST,ALK PHOS)2021-05-21 13:30:03 Test Item Value Reference Range Interpretation Comments TOTAL BILI (test code = 7314577064) 0.7 mg/dL 0.1-1.1 BILI UNCON (test code = 5475979276) 0.0 mg/dL 0.1-1.1 L BILI CONJ (test code = 2846343938) 0.0 mg/dL 0.0-0.3 T PROTEIN (test code = 1322800590) 7.2 g/dL 6.3-8.2 ALBUMIN (test code = 4723645655) 3.5 g/dL 3.5-5.0 ALK PHOS (test code = 0575983129) 156 U/L 34-122 H ALTv (test code = 1742-6) 12 U/L 5-35 AST(SGOT) (test code = 0910853122) 28 U/L 13-40 Lab Interpretation (test code = Abnormal 60594-8) [facility] WITH [id number] 10:18:09 Test Item Value Reference Range Interpretation [...] (test code = 52.3 fL 39.0-49.9 H 78794-3) RDW-CV (test code = 14.9 % 12.0-15.5 788-0) PLT (test code = See_Comment L [Automated 777-3) message] The sy stem which generated this result transmitted reference range : 166 - 358 10*3/ ?L. The reference r alba was not used to interpret this result as normal/abnormal . MPV (test code = 11.0 fL 9.5-12.9 96908-2) NRBC/100 WBC (test See_Comment [Automat ed code = 8006539940) message] The system which generated this result transmitted reference range : 0.0 - 10.0 /100 WBCs. The refer ence range was not u sed to interpret th is result as normal/abnormal . NRBC x10^3 (test code <0.01 See_Comment [Auto mated = 0549942947) message] The s ystem which generated this result transmitted reference range : 10*3/?L. The reference range was not used to interpret this result as normal/abnormal . GRAN MAT (NEUT) % 74.4 % (test code = 770-8) IMM GRAN % (test code 0.30 % = 0540748046) LYMPH % (test code = 12.9 % 736-9) MONO % (test code = 11.2 % 5905-5) EOS % (test code = 0.7 % 713-8) BASO % (test code = 0.5 % 706-2) GRAN MAT x10^3(ANC) 4.40 10*3/uL 1.88-7.09 (test code = 4329325049) IMM GRAN x10^3 (test <0.03 0.00-0.06 code = 5523004397) LYMPH x10^3 (test code 0.76 10*3/uL 1.32-3.29 L = 731-0) MONO x10^3 (test code 0.66 10*3/uL 0.33-0.92 = 742-7) EOS x10^3 (test code = 0.04 10*3/uL 0.03-0.39 711-2) BASO x10^3 (test code 0.03 10*3/uL 0.01-0.07 = 704-7) Lab Interpretation Abnormal (test code = 37963-7) [facility] (NA, K, CL, CO2, GLUCOSE, BUN, CREATININE, CA)2021-05-21 10:17:29 Test Item Value Reference Range Interpretation Comments NA (test code = 132 mmol/L 135-145 L 7992450824) K (test code = 4.6 mmol/L 3.5-5.0 6690626436) CL (test code = 99 mmol/L 98-108 7320384485) CO2 TOTAL (test code = 27 mmol/L 23-31 2579332494) AGAP (test code = 2-16 9042098094) BUN (test code = 30 mg/dL 7-23 H 5258094719) GLUCOSE (test code = 129 mg/dL 70-110 H 0868638828) CREATININE (test code = 4.51 mg/dL 0.50-1.04 H 9715138597) CALCIUM (test code = 8.1 mg/dL 8.6-10.6 L 6762856029) eGFR (test code = mL/min/1.73m2 5324972891) BRANDI (test code = BRANDI) Association of [...] tests). Lab Interpretation Abnormal (test code = 41494-1) [facility] GLUCOSE (AUTOMATED)2021-05-21 02:24:31 Test Item Value Reference Range Interpretation Comments POCT GLU (test code = 8173957718) 123 mg/dL 70-110 H Lab Interpretation (test code = Abnormal 58591-6) [facility] GLUCOSE (AUTOMATED)2021-05-20 22:40:15 Test Item Value Reference Range Interpretation Comments POCT GLU (test code = 1098368990) 193 mg/dL 70-110 H Lab Interpretation (test code = Abnormal 39998-6) [facility] GLUCOSE (AUTOMATED)2021-05-20 17:24:39 Test Item Value Reference Range Interpretation Comments POCT GLU (test code = 4112293797) 129 mg/dL 70-110 H Lab Interpretation (test code = Abnormal 55780-5) [facility]N-[facility]MINAL [id number] 16:20:09 Test Item Value Reference Range Interpretation Comments NT-proBNP (test code 420245 pg/mL See_Comment H [Autom ated = 9204258404) message] The system which generated this result transmitted reference range : <=125. The reference range was not used to interpret this result as normal/abnormal . BRANDI (test code = BRANDI) Biotin has been reported to cause a negative bias, interpret results relative to patient's use of biotin. Lab Interpretation Abnormal (test code = 94877-3) [facility] GLUCOSE (AUTOMATED)2021-05-20 13:50:50 Test Item Value Reference Range Interpretation Comments POCT GLU (test code = 8213043069) 142 mg/dL 70-110 H Lab Interpretation (test code = Abnormal 56980-5) [facility] CenterLAINATE [id number] 11:29:26 Test Item Value Reference Range Interpretation Comments LDH (test code = 2858969470) 424 U/L 300-600 Slight hemolysis Lab Interpretation (test code Normal = 85632-7) [facility] (NA, K, CL, CO2, GLUCOSE, BUN, CREATININE, CA)2021-05-20 11:28:05 Test Item Value Reference Range Interpretation Comments NA (test code = 132 mmol/L 135-145 L 5253092188) K (test code = 4.6 mmol/L 3.5-5.0 8015260859) CL (test code = 97 mmol/L 98-108 L 1768105257) CO2 TOTAL (test code = 26 mmol/L 23-31 7336914259) AGAP (test code = 2-16 9591258348) BUN (test code = 44 mg/dL 7-23 H 8126170012) GLUCOSE (test code = 161 mg/dL 70-110 H 2818377191) CREATININE (test code = 6.29 mg/dL 0.50-1.04 H 5240550610) CALCIUM (test code = 8.0 mg/dL 8.6-10.6 L 0382588084) eGFR (test code = mL/min/1.73m2 6799746292) BRANDI (test code = BRANDI) Association of [...] tests). Lab Interpretation Abnormal (test code = 71915-8) [facility] CenterPROTHROMBIN TIME / [id number] 11:17:25 Test Item Value Reference Range Interpretation Comments PROTIME PATIENT (test See_Comment [Auto mated message] code = 5964-2) The system [employer] generated this result transmitted ref erence range: 12.0 - 1 4.7 Seconds. The re ference range was not u sed to interpret this result as normal/abnor mal. INR (test code = 6301-6) Nor mal INR <1.1; Warfarin Therap eutic range 2.0 to 3. 0 or 2.5 to 3.5, dep ending upon the indica tions. Lab Interpretation (test Normal code = 84891-0) [facility] GLUCOSE (AUTOMATED)2021-05-20 01:38:05 Test Item Value Reference Range Interpretation Comments POCT GLU (test code = 8294568639) 181 mg/dL 70-110 H Lab Interpretation (test code = Abnormal 35336-3) [facility] GLUCOSE (AUTOMATED)2021-05-19 23:12:33 Test Item Value Reference Range Interpretation Comments POCT GLU (test code = 6776603650) 129 mg/dL 70-110 H Lab Interpretation (test code = Abnormal 14642-6) [facility] GLUCOSE (AUTOMATED)2021-05-19 17:43:05 Test Item Value Reference Range Interpretation Comments POCT GLU (test code = 2156242257) 195 mg/dL 70-110 H Lab Interpretation (test code = Abnormal 44943-0) [facility] CenterN-[facility]AL [id number] 16:56:37 Test Item Value Reference Range Interpretation Comments NT-proBNP (test code 443410 pg/mL See_Comment H [Autom ated = 5708765301) message] The system which generated this result transmitted reference range : <=125. The reference range was not used to interpret this result as normal/abnormal . BRANDI (test code = BRANDI) Biotin has been reported to cause a negative bias, interpret results relative to patient's use of biotin. Lab Interpretation Abnormal (test code = 42483-9) [facility] (NA, K, CL, CO2, GLUCOSE, BUN, CREATININE, CA)2021-05-19 15:16:19 Test Item Value Reference Range Interpretation Comments NA (test code = 132 mmol/L 135-145 L 4527764696) K (test code = 4.7 mmol/L 3.5-5.0 6049824062) CL (test code = 98 mmol/L 98-108 4719298114) CO2 TOTAL (test code = 24 mmol/L 23-31 3366629536) AGAP (test code = 2-16 1021319914) BUN (test code = 30 mg/dL 7-23 H 7069716129) GLUCOSE (test code = 101 mg/dL 70-110 8382129374) CREATININE (test code = 4.70 mg/dL 0.50-1.04 H 2620596141) CALCIUM (test code = 8.3 mg/dL 8.6-10.6 L 9617792826) eGFR (test code = mL/min/1.73m2 4219499837) BRANDI (test code = BRANDI) Association of [...] tests). Lab Interpretation Abnormal (test code = 52016-3) [facility] GLUCOSE (AUTOMATED)2021-05-19 14:16:27 Test Item Value Reference Range Interpretation Comments POCT GLU (test code = 8498857166) 112 mg/dL 70-110 H Lab Interpretation (test code = Abnormal 53825-3) [facility] WITH [id number] 13:09:08 Test Item Value Reference Range Interpretation [...] (test code = 51.2 fL 39.0-49.9 H 03968-8) RDW-CV (test code = 14.6 % 12.0-15.5 788-0) PLT (test code = See_Comment L [Automated 777-3) message] The sy stem which generated this result transmitted reference range : 166 - 358 10*3/ ?L. The reference r alba was not used to interpret this result as normal/abnormal . MPV (test code = 11.0 fL 9.5-12.9 28233-0) NRBC/100 WBC (test See_Comment [Automat ed code = 5417126482) message] The system which generated this result transmitted reference range : 0.0 - 10.0 /100 WBCs. The refer ence range was not u sed to interpret th is result as normal/abnormal . NRBC x10^3 (test code <0.01 See_Comment [Auto mated = 6578957722) message] The s ystem which generated this result transmitted reference range : 10*3/?L. The reference range was not used to interpret this result as normal/abnormal . GRAN MAT (NEUT) % 82.8 % (test code = 770-8) IMM GRAN % (test code 0.40 % = 8381264871) LYMPH % (test code = 7.8 % 736-9) MONO % (test code = 7.9 % 5905-5) EOS % (test code = 0.7 % 713-8) BASO % (test code = 0.4 % 706-2) GRAN MAT x10^3(ANC) 5.98 10*3/uL 1.88-7.09 (test code = 8468618758) IMM GRAN x10^3 (test 0.03 10*3/uL 0.00-0.06 code = 6365868432) LYMPH x10^3 (test code 0.56 10*3/uL 1.32-3.29 L = 731-0) MONO x10^3 (test code 0.57 10*3/uL 0.33-0.92 = 742-7) EOS x10^3 (test code = 0.05 10*3/uL 0.03-0.39 711-2) BASO x10^3 (test code 0.03 10*3/uL 0.01-0.07 = 704-7) Lab Interpretation Abnormal (test code = 25142-9) [facility] Center[facility] Antibody (HBsAb)2021-05-19 09:35:37 Test Item Value Reference Range Interpretation Comments HBsAB (test code = Positive 7677740930) HBsAb mIU/mL Semi-Quantitative (test code = 0765490758) BRANDI (test code = Interpretation: BRANDI) ?Hepatitis B Surface Antibody ? Negative - Patient is considered to be not immune to infection with HBV. ? ? Positive - Anti-HBs detected at greater than or equal to 12 mIU/mL. ?Patient is considered to be immune to infection with HBV. ? [facility] B Surface Antigen (HBsAg)2021-05-19 09:17:53 Test Item Value Reference Range Interpretation Comments HBsAg Semi-Quantitative (test code = Negative Negative 5195-3) [facility]2021-[facility]-19 03:13:02 Test Item Value Reference Range Interpretation Comments POCT GLU (test code = 9053877286) 110 mg/dL 70-110 Lab Interpretation (test code = Normal 47130-2) [facility] GLUCOSE (AUTOMATED)2021-05-18 23:00:40 Test Item Value Reference Range Interpretation Comments POCT GLU (test code = 2285959754) 177 mg/dL 70-110 H Lab Interpretation (test code = Abnormal 46970-6) [facility] GLUCOSE (AUTOMATED)2021-05-18 17:50:50 Test Item Value Reference Range Interpretation Comments POCT GLU (test code = 7708970920) 179 mg/dL 70-110 H Lab Interpretation (test code = Abnormal 21461-3) [facility] GLUCOSE (AUTOMATED)2021-05-18 17:26:29 Test Item Value Reference Range Interpretation Comments POCT GLU (test code = 9435202087) 171 mg/dL 70-110 H Lab Interpretation (test code = Abnormal 39172-0) [facility] METABOLIC PANEL (NA, K, CL, CO2, GLUCOSE, BUN, CREATININE, CA)2021-05-18 15:43:01 Test Item Value Reference Range Interpretation Comments NA (test code = 128 mmol/L 135-145 L 3953492282) K (test code = 5.5 mmol/L 3.5-5.0 H 9292984686) CL (test code = 94 mmol/L 98-108 L 3804478233) CO2 TOTAL (test code = 24 mmol/L 23-31 7835754114) AGAP (test code = 2-16 2053317234) BUN (test code = 56 mg/dL 7-23 H 3499907761) GLUCOSE (test code = 130 mg/dL 70-110 H 3594346520) CREATININE (test code = 7.52 mg/dL 0.50-1.04 H 2505703163) CALCIUM (test code = 7.8 mg/dL 8.6-10.6 L 9243343731) eGFR (test code = mL/min/1.73m2 2053329645) BRANDI (test code = BRANDI) Association of [...] tests). Lab Interpretation Abnormal (test code = 54608-9) [facility] GLUCOSE (AUTOMATED)2021-05-18 13:33:12 Test Item Value Reference Range Interpretation Comments POCT GLU (test code = 9976648469) 129 mg/dL 70-110 H Lab Interpretation (test code = Abnormal 15019-4) [facility] GLUCOSE (AUTOMATED)2021-05-17 22:57:15 Test Item Value Reference Range Interpretation Comments POCT GLU (test code = 9890538176) 215 mg/dL 70-110 H Lab Interpretation (test code = Abnormal 63763-3) [facility] CenterTran[facility] ([facility]E)2021-05-17 18:02:09 Test Item Value Reference Range Interpretation Comments LVOT diameter (test code 2.00 cm = 0635147179) MV [place] E [place] (test code 134.0 cm/s = 7267782997) MV Peak A [place] (test code 54.2 cm/s = 5938170169) E/A ratio (test code = ratio 1659674325) E wave decelartion time 0.22 s (test code = 1268624227) LA size (test code = 5.4 cm 8936369469) MV stenosis pressure 1/2 65.0 ms time (test code = 6167333130) MV dec slope (test code 604.00 cm/s2 = 0284521063) Ao root annulus (test 2.7 cm code = 9914038244) Ao root diam (test code 2.70 cm = 6008020537) Aortic root (test code = 2.7 cm 7814471379) LVIDD (test code = 5.10 cm 0125092115) IVS (test code = 1.06 cm 4083809840) Interventricular Septum 1.06 cm Diastolic Thickness by 2D (test code = 7447799) LVPWD (test code = 1.00 cm 3762049896) PW (test code = 1.00 cm 0.6-1.7 4514374277) LVIDS (test code = 3.70 cm 0330482046) FS (test code = 27 % 9902458633) EF(Teich) (test code = 52.60 % 0082865053) EF - 2D (test code = 52.60 % 31326701) MR max PG (test code = 123.90 mm[Hg] 0917530817) MR max marietta (test code = 556.50 cm/s 1077355588) Mr max marietta (test code = 556.5 m/s 5175505369) LAV(MOD-sp4) (test code 46.70 mL = 7836167389) LA Volume Index (BP) 29.2 mL/m2 (test code = 4935102757) LA volume (BP) (test 51.8 mL code = 8488998341) LAV(MOD-sp2) (test code 52.40 mL = 9956434616) Aortic valve mean 105.0 cm/s velocity (test code = 8822819622) Ao peak marietta (test code = 160.0 cm/s 2505970454) Ao VTI (test code = 30.0 cm 7324755276) Ao max PG (test code = 10.20 mm[Hg] 1002606876) AV peak gradient (test mmHg code = 7987504117) AV mean gradient (test mmHg code = 1372313030) LVOT stroke volume (test 63.60 cm3 code = 7622651984) LVOT peak marietta (test code 108.3 cm/s = 9474954973) LVOT mn grad (test code mmHg = 9428107939) AV LVOT peak gradient mmHg (test code = 9464395651) LVOT peak VTI (test code 20.2 cm = 2356397218) AV area by cont VTI 2.1 cm2 (test code = 5959924882) AV area peak marietta (test 2.1 cm2 code = 4312722702) LV V1 mean (test code = 66.80 cm/s 4603731202) AV valve area (test code 2.12 cm2 = 6992578582) TR Peak Marietta (test code = 342.9 cm/s 1379885198) Triscuspid Valve mmHg Regurgitation Peak Gradient (test code = 2760725371) PV REGURGITATION PEAK mmHg GRADIENT (test code = 0729678582) PI dec slope (test code 438.00 cm/s2 = 4318869932) Pulmonic Regurgitant End 105.3 cm/s Max Velocity (test code = 8373640460) Inferior Vena Cava 2.33 cm Diameter (test code = 4833624688) MV Prop V (test code = 37.50 cm/s 8364508687) Radiology Study observation (narrative) (test code = 63314-7) ADD (test code = ADD) Addendum by Brenda Fuentes MD on 05/17/2021 3:16 PM VIDEO GAME DEVELOPER ?Left?Ventricle: Low normal systolic function with a [...] (73.9 kg) 1.81 sq meters 165/73 71 [facility] GLUCOSE (AUTOMATED)2021-05-17 17:54:17 Test Item Value Reference Range Interpretation Comments POCT GLU (test code = 1012283566) 134 mg/dL 70-110 H Lab Interpretation (test code = Abnormal 61878-2) [facility] GLUCOSE (AUTOMATED)2021-05-17 14:18:37 Test Item Value Reference Range Interpretation Comments POCT GLU (test code = 2716227993) 119 mg/dL 70-110 H Lab Interpretation (test code = Abnormal 25592-3) [id number] 11:21:13 Test Item Value Reference Range Interpretation Comments NT-proBNP (test code 884201 pg/mL See_Comment H [Autom ated = 6891014011) message] The system which generated this result transmitted reference range : <=125. The reference range was not used to interpret this result as normal/abnormal . BRANDI (test code = BRANDI) Biotin has been reported to cause a negative bias, interpret results relative to patient's use of biotin. Lab Interpretation Abnormal (test code = 77389-8) [id number] 11:09:22 Test Item Value Reference Range Interpretation Comments WBC (test code = 6690-2) See_Comment [A utomated message] The system [employer] generated this result transmit levi reference range : 4.30 - 11.10 10*3/?L. The reference range was not used to interpret this result as normal/abnormal . RBC (test code = 789-8) See_Comment L [Au tomated message] The system [employer] generated this result transmit levi reference range [...] See_Comment L [Au tomated message] The system [employer] generated this result transmit levi reference range : 166 - 358 10*3/?L. The reference range was not used to interpret this result as normal/abnormal . MPV (test code = 11.1 fL 9.5-12.9 01417-4) RDW-CV (test code = 14.5 % 12.0-15.5 788-0) RDW-SD (test code = 50.8 fL 39.0-49.9 H 68999-4) NRBC x10^3 (test code = <0.01 See_Comment [Au tomated message] 3800189471) The system [employer] generated this result transmit levi reference range : 10*3/?L. The reference range was not used to interpret this result as normal/abnormal . NRBC/100 WBC (test code See_Comment [Au tomated message] = 3787800799) The system [employer] ch generated this result transmit levi reference range : 0.0 - 10.0 /100 WBC s. The reference r alba was not used to interpret this result as normal/abnormal . IPF % (test code = 2300208148) Lab Interpretation (test Abnormal code = 66022-5) [facility]23 Test Item Value Reference Range Interpretation Comments MAGNESIUM (test code = 9170272709) 2.1 mg/dL 1.7-2.4 Lab Interpretation (test code = Normal 25220-4) [facility] METABOLIC PANEL (NA, K, CL, CO2, GLUCOSE, BUN, CREATININE, CA)2021-05-17 10:56:22 Test Item Value Reference Range Interpretation Comments NA (test code = 130 mmol/L 135-145 L 6351228977) K (test code = 4.6 mmol/L 3.5-5.0 3951556452) CL (test code = 96 mmol/L 98-108 L 6984015296) CO2 TOTAL (test code = 26 mmol/L 23-31 0096530166) AGAP (test code = 2-16 2759010434) BUN (test code = 42 mg/dL 7-23 H 6814472155) GLUCOSE (test code = 148 mg/dL 70-110 H 4313028970) CREATININE (test code = 5.84 mg/dL 0.50-1.04 H 5366142852) CALCIUM (test code = 7.9 mg/dL 8.6-10.6 L 3207292593) eGFR (test code = mL/min/1.73m2 7376146161) BRANDI (test code = BRANDI) Association of [...] tests). Lab Interpretation Abnormal (test code = 60956-1) [facility] 10:56:02 Test Item Value Reference Range Interpretation Comments PHOSPHORUS (test code = 1269008704) 5.8 mg/dL 2.5-5.0 H Lab Interpretation (test code = Abnormal 39943-8) [facility] GLUCOSE (AUTOMATED)2021-05-16 22:43:07 Test Item Value Reference Range Interpretation Comments POCT GLU (test code = 2980820384) 231 mg/dL 70-110 H Lab Interpretation (test code = Abnormal 69051-6) [facility] GLUCOSE (AUTOMATED)2021-05-16 17:43:53 Test Item Value Reference Range Interpretation Comments POCT GLU (test code = 4088792490) 154 mg/dL 70-110 H Lab Interpretation (test code = Abnormal 51442-2) [facility]2021-[facility]-16 13:42:36 Test Item Value Reference Range Interpretation Comments POCT GLU (test code = 5202546456) 121 mg/dL 70-110 H Lab Interpretation (test code = Abnormal 43681-5) [facility] CenterCB WITHOUT PPST1756-43-81 09:48:31 Test Item Value Reference Range Interpretation Comments WBC (test code = 6690-2) See_Comment [A utomated message] The system [employer] generated this result transmit levi reference range : 4.30 - 11.10 10*3/?L. The reference range was not used to interpret this result as normal/abnormal . RBC (test code = 789-8) See_Comment L [Au tomated message] The system [employer] generated this result transmit levi reference range [...] See_Comment L [Au tomated message] The system [employer] generated this result transmit levi reference range : 166 - 358 10*3/?L. The reference range was not used to interpret this result as normal/abnormal . MPV (test code = 10.9 fL 9.5-12.9 24979-1) RDW-CV (test code = 15.0 % 12.0-15.5 788-0) RDW-SD (test code = 52.6 fL 39.0-49.9 H 32632-9) NRBC x10^3 (test code = <0.01 See_Comment [Au tomated message] 6365255098) The system [employer] generated this result transmit levi reference range : 10*3/?L. The reference range was not used to interpret this result as normal/abnormal . NRBC/100 WBC (test code See_Comment [Au tomated message] = 5612239124) The system [employer] generated this result transmit levi reference range : 0.0 - 10.0 /100 WBC s. The reference r alba was not used to interpret this result as normal/abnormal . IPF % (test code = 6310070682) Lab Interpretation (test Abnormal code = 43699-9) [facility] Center[facility] (Total Cholesterol, Triglycerides, HDL)2021-05-16 09:36:18 Test Item Value Reference Range Interpretation Comments CHOL (test code = 157 mg/dL 120-200 8658388522) HDL (test code = 26 mg/dL >50 L 3298498593) HDLC RATIO (test code = See_Comment H [Au tomated message] 6032136443) The system [employer] generated this result transmit levi reference range : <=4.5. The refe rence range was not u sed to interpret th is result as normal/abnormal . TRIG (test code = 146 mg/dL 30-170 3664669517) LDL CHOL (test code = 102 mg/dL See_Comment [Auto mated message] 02904-9) The system [employer] generated this result transmit levi reference range : <=160. The refe rence range was not u sed to interpret th is result as normal/abnormal . VLDL (test code = 29 mg/dL 5-60 0129421318) Lab Interpretation (test Abnormal code = 30378-7) [facility] CenterGlycosylated Hemoglobin (A1C)2021-05-16 09:22:50 Test Item Value Reference Range Interpretation Comments HGB A1C (test code = 6.2 % 4.0-5.7 H 4548-4) BRANDI (test code = BRANDI) Reference RangesNormal: <5.7%Prediabetes: 5.7 - 6.4%Diabetes: > 6.5% Lab Interpretation (test Abnormal code = 09880-4) [facility] CenterTroponin [id number] 09:19:18 Test Item Value Reference Interpretation Comments Range TROPONIN I (test 0.028 ng/mL See_Comment [Automated code = 3845118731) message] The system which generated this result [...] biotin. Lab Interpretation Normal (test code = 04031-3) [facility] Metabolic Panel (NA, K, CL, CO2, GLUCOSE, BUN, CREATININE, CA)2021-05-16 09:08:35 Test Item Value Reference Range Interpretation Comments NA (test code = 134 mmol/L 135-145 L 1121885956) K (test code = 4.3 mmol/L 3.5-5.0 8209981722) CL (test code = 98 mmol/L 98-108 2285655615) CO2 TOTAL (test code = 27 mmol/L 23-31 9029466115) AGAP (test code = 2-16 0167087636) BUN (test code = 28 mg/dL 7-23 H 6496994772) GLUCOSE (test code = 114 mg/dL 70-110 H 4399088954) CREATININE (test code = 4.79 mg/dL 0.50-1.04 H 8632048578) CALCIUM (test code = 8.2 mg/dL 8.6-10.6 L 6899469658) eGFR (test code = mL/min/1.73m2 3301362597) BRANDI (test code = BRANDI) Association of [...] tests). Lab Interpretation Abnormal (test code = 79390-9) [facility] CenterMagnesium Mnsgj8819-34-32 09:08:35 Test Item Value Reference Range Interpretation Comments MAGNESIUM (test code = 9303574643) 2.2 mg/dL 1.7-2.4 Lab Interpretation (test code = Normal 29390-8) [facility] CenterTroponin B0827-09-37 03:08:26 Test Item Value Reference Interpretation Comments Range TROPONIN I (test 0.019 ng/mL See_Comment [Automated code = 6624237744) message] The system which generated this result [...] biotin. Lab Interpretation Normal (test code = 87473-6) [facility] CenterPhosphorus Rgsfz7921-48-01 02:56:02 Test Item Value Reference Range Interpretation Comments PHOSPHORUS (test code = 7599976564) 4.5 mg/dL 2.5-5.0 Lab Interpretation (test code = Normal 41791-8) [facility] CenterPO[facility]SE [facility]AUT[facility]ATED)2021-05-16 02:28:15 Test Item Value Reference Range Interpretation Comments POCT GLU (test code = 0170902387) 155 mg/dL 70-110 H Lab Interpretation (test code = Abnormal 14140-0) [facility] CenterThyroid Stimulating Hormone (TSH)2021-05-16 01:56:53 Test Item Value Reference Range Interpretation Comments TSH (test code = See_Comment [Automated message] 0660141674) The system [employer] generated this result transmitted ref erence range: 0.45 - 4 .70 mIU/L. The refe rence range was not u sed to interpret this result as normal/abnor mal. Lab Interpretation (test Normal code = 83280-9) [facility] CenterGlycosylated Hemoglobin (A1C)2021-05-16 01:17:48 Test Item Value Reference Range Interpretation Comments HGB A1C (test code = 6.3 % 4.0-5.7 H 4548-4) BRANDI (test code = BRANDI) Reference RangesNormal: <5.7%Prediabetes: 5.7 - 6.4%Diabetes: > 6.5% Lab Interpretation (test Abnormal code = 91876-5) [facility] CenterN-TERMINAL VER-OBE7918-68-11 20:42:55 Test Item Value Reference Range Interpretation Comments NT-proBNP (test code 489634 pg/mL See_Comment H [Autom ated = 5770244403) message] The system which generated this result transmitted reference range : <=125. The reference range was not used to interpret this result as normal/abnormal . BRANDI (test code = BRANDI) Biotin has been reported to cause a negative bias, interpret results relative to patient's use of biotin. Lab Interpretation Abnormal (test code = 25169-0) [facility] CenterTROPONIN [id number] 20:28:40 Test Item Value Reference Interpretation Comments Range TROPONIN I (test 0.012 ng/mL See_Comment [Automated code = 4385276389) message] The system which generated this result [...] biotin. Lab Interpretation Normal (test code = 50522-3) [facility] CenterD-EPXGD4358-12-88 20:27:34 Test Item Value Reference Interpretation Comments Range D-DIMER (test code = See_Comment H [Autom ated 5185054985) message] The system which generated this result [...] diagnosis. Lab Interpretation Abnormal (test code = 76706-4) [facility] CenterMAG[facility]UM2022-[facility]-11 20:17:56 Test Item Value Reference Range Interpretation Comments MAGNESIUM (test code = 0175199682) 1.9 mg/dL 1.7-2.4 Lab Interpretation (test code = Normal 31100-8) [facility]. METABOLIC PANEL (57667)2021-05-15 20:17:36 Test Item Value Reference Range Interpretation Comments NA (test code = 136 mmol/L 135-145 0723162982) K (test code = 4.2 mmol/L 3.5-5.0 8713787699) CL (test code = 99 mmol/L 98-108 0294401091) CO2 TOTAL (test code = 26 mmol/L 23-31 6671949191) AGAP (test code = 2-16 2103391184) BUN (test code = 24 mg/dL 7-23 H 5338090871) GLUCOSE (test code = 112 mg/dL 70-110 H 1662417212) CREATININE (test code = 3.82 mg/dL 0.50-1.04 H 6442549596) TOTAL BILI (test code = 1.0 mg/dL 0.1-1.4 8567958118) CALCIUM (test code = 8.5 mg/dL 8.6-10.6 L 4495691552) T PROTEIN (test code = 8.6 g/dL 6.3-8.2 H 5273799321) ALBUMIN (test code = 4.2 g/dL 3.5-5.0 3677351463) ALK PHOS (test code = 176 U/L 34-122 H 9437471376) ALTv (test code = 13 U/L 5-35 1742-6) AST(SGOT) (test code = 26 U/L 13-40 8143440192) eGFR (test code = mL/min/1.73m2 3209632898) BRANDI (test code = BRANDI) Association of [...] tests). Lab Interpretation Abnormal (test code = 32319-4) [facility] CenterLIPASE2022-[facility] 20:17:15 Test Item Value Reference Range Interpretation Comments LIPASE (test code = 3505979406) 125 U/L 0-220 Lab Interpretation (test code = Normal 68182-7) [facility] CenterPROTHROMBIN TIME / [id number] 20:02:29 Test Item Value Reference Range Interpretation [...] tions. Lab Interpretation (test Normal code = 41453-9) [facility] WITH [id number] 19:52:47 Test Item Value Reference Range Interpretation Comments WBC (test code = See_Comment [Automated 8490-2) message] The sy stem which generated this [...] (test code = 52.6 fL 39.0-49.9 H 38733-8) RDW-CV (test code = 15.0 % 12.0-15.5 788-0) PLT (test code = See_Comment L [Automated 777-3) message] The sy stem which generated this result transmitted reference range : 166 - 358 10*3/ ?L. The reference r alba was not used to interpret this result as normal/abnormal . MPV (test code = 10.9 fL 9.5-12.9 33870-9) NRBC/100 WBC (test See_Comment [Automat ed code = 2326445528) message] The system which generated this result transmitted reference range : 0.0 - 10.0 /100 WBCs. The refer ence range was not u sed to interpret th is result as normal/abnormal . NRBC x10^3 (test code <0.01 See_Comment [Auto mated = 3333236277) message] The s ystem which generated this result transmitted reference range : 10*3/?L. The reference range was not used to interpret this result as normal/abnormal . GRAN MAT (NEUT) % 74.8 % (test code = 770-8) IMM GRAN % (test code 0.60 % = 1727337043) LYMPH % (test code = 12.4 % 736-9) MONO % (test code = 8.7 % 5905-5) EOS % (test code = 2.6 % 713-8) BASO % (test code = 0.9 % 706-2) GRAN MAT x10^3(ANC) 4.06 10*3/uL 1.88-7.09 (test code = 4540621736) IMM GRAN x10^3 (test 0.03 10*3/uL 0.00-0.06 code = 8172225246) LYMPH x10^3 (test code 0.67 10*3/uL 1.32-3.29 L = 731-0) MONO x10^3 (test code 0.47 10*3/uL 0.33-0.92 = 742-7) EOS x10^3 (test code = 0.14 10*3/uL 0.03-0.39 711-2) BASO x10^3 (test code 0.05 10*3/uL 0.01-0.07 = 704-7) Lab Interpretation Abnormal (test code = 73561-0) [facility] CenterTrmckenzie [facility] hospitalnin I.cardiac [Mass/volume] in Serum or Ctbndo0650-43-64 17:30:00 Test Item Value Reference Range Interpretation Comments Troponin I.cardiac 0.35 See_Comment [Automat ed message] The [Mass/volume] in Serum syste m which generated or Plasma (test code = this result transmitted Troponin I.cardiac reference range: <=0.045. [Mass/volume] in Serum The r eference range was or Plasma) not used to int erpret this result as normal/abnormal . [facility] HermannAbsolute lymphocyte bhqtn1019-27-00 11:37:00 Test Item Value Reference Range Interpretation Comments Absolute lymphocyte count (test code = 0.7 0.7-4.9 Absolute lymphocyte count) [facility] HermannBasophil %2019-02-18 11:37:00 Test Item Value Reference Range Interpretation Comments Basophil % (test code = 2.4 See_Comment [Au tomated message] The Basophil %) system which ge nerated this result tra nsmitted reference range : <=1.3. The reference r alba was not used to int erpret this result as normal/abnormal . [facility]Blood anisocytosis dksgituhm7366-56-88 11:37:00 Test Item Value Reference Range Interpretation Comments Blood anisocytosis detection (test code 2+ = Blood anisocytosis detection) [facility]Blood erythrocytes count (number/volume)2019-02-18 11:37:00 Test Item Value Reference Range Interpretation Comments Blood erythrocytes count 3.34 3.86-4.86 (number/volume) (test code = Blood erythrocytes count (number/volume)) [facility]annBlood hematocrit (volume fraction)2019-02-18 11:37:00 Test Item Value Reference Range Interpretation Comments Blood hematocrit (volume fraction) 31.8 36.0-45.0 (test code = Blood hematocrit (volume fraction)) [facility]annBlood morphology interpretation txqtyfslg0626-05-27 11:37:00 Test Item Value Reference Range Interpretation Comments Blood morphology interpretation Noted narrative (test code = Blood morphology interpretation narrative) [facility]annBlood platelet mean pwbwnq3103-24-10 11:37:00 Test Item Value Reference Range Interpretation Comments Blood platelet mean volume (test code = 9.8 7.6-11.3 Blood platelet mean volume) [facility]annBlood poikilocytosis detection by light txegpkrwxe2881-45-10 11:37:00 Test Item Value Reference Range Interpretation Comments Blood poikilocytosis detection by light 1+ microscopy (test code = Blood poikilocytosis detection by light microscopy) [facility]annCalcium [Mass/volume] in Serum or Vpokjz5775-68-43 11:37:00 Test Item Value Reference Range Interpretation Comments Calcium [Mass/volume] in Serum or 7.2 8.5-10.1 Plasma (test code = Calcium [Mass/volume] in Serum or Plasma) [facility]annCarbon dioxide, total [Moles/volume] in Serum or Plasma 2019-02-18 11:37:00 Test Item Value Reference Range Interpretation Comments Carbon dioxide, total [Moles/volume] in 25 21-32 Serum or Plasma (test code = Carbon dioxide, total [Moles/volume] in Serum or Plasma) [facility]annChemistry gdfeugnos3638-50-86 11:37:00 Test Item Value Reference Range Interpretation Comments Chemistry procedure (test code = 95.3 80-100 Chemistry procedure) [facility]annChloride [Moles/volume] in Serum or Pmgkqb4049-71-97 11:37:00 Test Item Value Reference Range Interpretation Comments Chloride [Moles/volume] in Serum or 98 98-107 Plasma (test code = Chloride [Moles/volume] in Serum or Plasma) [facility]annCreatinine [Mass/volume] in Serum or Qpzzsx4337-83-62 11:37:00 Test Item Value Reference Range Interpretation Comments Creatinine [Mass/volume] in Serum or 7.35 0.55-1.3 Plasma (test code = Creatinine [Mass/volume] in Serum or Plasma) [facility]annGlucose [Mass/volume] in Serum or Fpeevr8006-70-91 11:37:00 Test Item Value Reference Range Interpretation Comments Glucose [Mass/volume] in Serum or 110 74-106 Plasma (test code = Glucose [Mass/volume] in Serum or Plasma) [facility]annMagnesium [Mass/volume] in Serum or Svvczu9669-73-64 11:37:00 Test Item Value Reference Range Interpretation Comments Magnesium [Mass/volume] in Serum or 2.4 1.8-2.4 Plasma (test code = Magnesium [Mass/volume] in Serum or Plasma) [facility]annPhosphate [Mass/volume] in Serum or Baaexl3197-68-50 11:37:00 Test Item Value Reference Range Interpretation Comments Phosphate [Mass/volume] in Serum or 4.7 2.5-4.9 Plasma (test code = Phosphate [Mass/volume] in Serum or Plasma) [facility]annPotassium [Moles/volume] in Serum or Zxioli4408-86-59 11:37:00 Test Item Value Reference Range Interpretation Comments Potassium [Moles/volume] in Serum or 4.5 3.5-5.1 Plasma (test code = Potassium [Moles/volume] in Serum or Plasma) [facility]annSerum or plasma sodium measurement (moles/volume)2019-02-18 11:37:00 Test Item Value Reference Range Interpretation Comments Serum or plasma sodium measurement 134 136-145 (moles/volume) (test code = Serum or plasma sodium measurement (moles/volume)) [facility]annUrea nitrogen [Mass/volume] in Serum or Ltxcyl0045-02-33 11:37:00 Test Item Value Reference Range Interpretation Comments Urea nitrogen [Mass/volume] in Serum or 74 7-18 Plasma (test code = Urea nitrogen [Mass/volume] in Serum or Plasma) [facility]annUrine dipstick testing at konff-rd-iumh0700-11-17 11:37:00 Test Item Value Reference Range Interpretation Comments Urine dipstick testing at ocbbh-wd-gteu 2.6 4.3-10.9 (test code = Urine dipstick testing at ooprk-md-luld) [facility] HermannAlanine aminotransferase [Enzymatic activity/volume] in Serum or Plasma by With P-5'-2019-02-18 00:35:00 Test Item Value Reference Range Interpretation Comments Alanine aminotransferase [Enzymatic 64 12-78 activity/volume] in Serum or Plasma by With P-5'- (test code = Alanine aminotransferase [Enzymatic activity/volume] in Serum or Plasma by With P-5'-) [facility]annAlbumin [Mass/volume] in Serum or Plasma by Bromocresol purple (BCP) dye binding seoi3545-16-97 00:35:00 Test Item Value Reference Range Interpretation Comments Albumin [Mass/volume] in Serum or 3.6 3.4-5.0 Plasma by Bromocresol purple (BCP) dye binding meth (test code = Albumin [Mass/volume] in Serum or Plasma by Bromocresol purple (BCP) dye binding meth) [facility]annAlkaline phosphatase [Enzymatic activity/volume] in Serum or Dchusx3671-62-67 00:35:00 Test Item Value Reference Range Interpretation Comments Alkaline phosphatase [Enzymatic 236 45-117 activity/volume] in Serum or Plasma (test code = Alkaline phosphatase [Enzymatic activity/volume] in Serum or Plasma) [facility]annAspartate aminotransferase [Enzymatic activity/volume] in Serum or Plasma by With P-59956-2230332-26-81 00:35:00 Test Item Value Reference Range Interpretation Comments Aspartate aminotransferase [Enzymatic 48 15-37 activity/volume] in Serum or Plasma by With P-5 (test code = Aspartate aminotransferase [Enzymatic activity/volume] in Serum or Plasma by With P-5) [facility] HermannBilirubin.direct [Mass/volume] in Serum or Pyrzhd5939-74-43 00:35:00 Test Item Value Reference Range Interpretation Comments Bilirubin.direct 0.2 See_Comment [Automated message] The [Mass/volume] in Serum syste m which generated or Plasma (test code = this result transmitted Bilirubin.direct reference r alba: <=0.2. [Mass/volume] in Serum The r eference range was or Plasma) not used to int erpret this result as emilee l/abnormal. [facility] HermannBilirubin.total [Mass/volume] in Serum or Xpvcer4979-33-95 00:35:00 Test Item Value Reference Range Interpretation Comments Bilirubin.total [Mass/volume] in Serum 0.6 0.2-1.0 or Plasma (test code = Bilirubin.total [Mass/volume] in Serum or Plasma) [facility]annINR in Blood by Coagulation snvil7647-15-62 00:35:00 Test Item Value Reference Range Interpretation Comments INR in Blood by Coagulation assay 1.15 1 (test code = INR in Blood by Coagulation assay) [facility] HermannNatriuretic peptide.B prohormone N-Terminal [Mass/volume] in Serum or Ncnukj8686-49-58 00:35:00 Test Item Value Reference Range Interpretation Comments Natriuretic peptide.B prohormone > 242571 N-Terminal [Mass/volume] in Serum or Plasma (test code = Natriuretic peptide.B prohormone N-Terminal [Mass/volume] in Serum or Plasma) [facility] HermannProtein [Mass/volume] in Serum or Oatshy0467-81-93 00:35:00 Test Item Value Reference Range Interpretation Comments Protein [Mass/volume] in Serum or 8.0 6.4-8.2 Plasma (test code = Protein [Mass/volume] in Serum or Plasma) [facility] MalloryannTroponin I.cardiac [Mass/volume] in Serum or Uwoqcj5799-01-99 00:35:00 Test Item Value Reference Range Interpretation Comments Troponin I.cardiac 0.32 See_Comment [Automat ed message] The [Mass/volume] in Serum syste m which generated or Plasma (test code = this result transmitted Troponin I.cardiac reference range: <=0.045. [Mass/volume] in Serum The r eference range was or Plasma) not used to int erpret this result as normal/abnormal . [facility]annAbsolute lymphocyte nctxu7475-47-88 04:05:00 Test Item Value Reference Range Interpretation Comments Absolute lymphocyte count (test code = 0.6 0.7-4.9 Absolute lymphocyte count) [facility]annBasophil %2019-01-26 04:05:00 Test Item Value Reference Range Interpretation Comments Basophil % (test code = 1.5 See_Comment [Au tomated message] The Basophil %) system which ge nerated this result tra nsmitted reference range : <=1.3. The reference r alba was not used to int erpret this result as normal/abnormal . [facility] HermannBlood erythrocytes count (number/volume)2019-01-26 04:05:00 Test Item Value Reference Range Interpretation Comments Blood erythrocytes count 3.64 3.86-4.86 (number/volume) (test code = Blood erythrocytes count (number/volume)) [facility]annBlood hematocrit (volume fraction)2019-01-26 04:05:00 Test Item Value Reference Range Interpretation Comments Blood hematocrit (volume fraction) 35.7 36.0-45.0 (test code = Blood hematocrit (volume fraction)) [facility]annBlood morphology interpretation jwycnvomz6290-66-64 04:05:00 Test Item Value Reference Range Interpretation Comments Blood morphology interpretation Not seen narrative (test code = Blood morphology interpretation narrative) [facility]annBlood platelet mean rggslv6543-82-26 04:05:00 Test Item Value Reference Range Interpretation Comments Blood platelet mean volume (test code = 9.2 7.6-11.3 Blood platelet mean volume) [facility]annCalcium [Mass/volume] in Serum or Oqhvrd5600-95-21 04:05:00 Test Item Value Reference Range Interpretation Comments Calcium [Mass/volume] in Serum or 6.8 8.5-10.1 Plasma (test code = Calcium [Mass/volume] in Serum or Plasma) [facility] HermannCarbon dioxide, total [Moles/volume] in Serum or Plasma 2019-01-26 04:05:00 Test Item Value Reference Range Interpretation Comments Carbon dioxide, total [Moles/volume] in 26 21-32 Serum or Plasma (test code = Carbon dioxide, total [Moles/volume] in Serum or Plasma) [facility] [id number] 04:05:00 Test Item Value Reference Range Interpretation Comments Chemistry procedure (test code = 98.1 80-100 Chemistry procedure) [facility]Chloride [Moles/volume] in Serum or [id number] 04:05:00 Test Item Value Reference Range Interpretation Comments Chloride [Moles/volume] in Serum or 98 98-107 Plasma (test code = Chloride [Moles/volume] in Serum or Plasma) [facility]ann[facility]inine [Mass/volume] in Serum or [id number] 04:05:00 Test Item Value Reference Range Interpretation Comments Creatinine [Mass/volume] in Serum or 6.36 0.55-1.3 Plasma (test code = Creatinine [Mass/volume] in Serum or Plasma) [facility]annGlucose [Mass/volume] in Serum or [id number] 04:05:00 Test Item Value Reference Range Interpretation Comments Glucose [Mass/volume] in Serum or 251 74-106 Plasma (test code = Glucose [Mass/volume] in Serum or Plasma) [facility]Potassium [Moles/volume] in Serum or [id number] 04:05:00 Test Item Value Reference Range Interpretation Comments Potassium [Moles/volume] in Serum or 4.7 3.5-5.1 Plasma (test code = Potassium [Moles/volume] in Serum or Plasma) [facility] HermannSerum or plasma sodium measurement (moles/volume)2019-01-26 04:05:00 Test Item Value Reference Range Interpretation Comments Serum or plasma sodium measurement 136 136-145 (moles/volume) (test code = Serum or plasma sodium measurement (moles/volume)) [facility] [Mass/volume] in Serum or [id number] 04:05:00 Test Item Value Reference Range Interpretation Comments Urea nitrogen [Mass/volume] in Serum or 52 7-18 Plasma (test code = Urea nitrogen [Mass/volume] in Serum or Plasma) [facility] dipstick testing at [id number] 04:05:00 Test Item Value Reference Range Interpretation Comments Urine dipstick testing at [id number]-kg-[id number] 3.4 4.3-10.9 (test code = Urine dipstick testing at [id number]-nn-xenn) [facility] HermannBacterial culture w [id number] 01:55:00 Test Item Value Reference Range Interpretation Comments Bacterial culture w ID NORMAL UPPER (test code = Bacterial RESPIRATORY HARI culture w ID) GROWN. [facility] [id number] 16:07:00 Test Item Value Reference Range Interpretation Comments Bedside Glucose (test code = Bedside 175 65-120 Glucose) [facility] [id number] 05:35:00 Test Item Value Reference Range Interpretation Comments Blood Morphology Blood Morphology Comment (test code = Comment Blood Morphology Comment) [facility]2019-07-10 05:35:00 Test Item Value Reference Range Interpretation Comments Total Bilirubin (test code = Total 0.5 0.2-1.0 Bilirubin) [facility]2019-07-10 05:35:00 Test Item Value Reference Range Interpretation Comments Sodium Level (test code = Sodium Level) 137 136-145 [facility]2019-07-10 05:35:00 Test Item Value Reference Range Interpretation Comments Serum Total Protein (test code = Serum 7.5 6.4-8.2 Total Protein) [facility]2019-07-10 05:35:00 Test Item Value Reference Range Interpretation Comments Potassium Level (test code = Potassium 4.8 3.5-5.1 Level) [facility]2019-07-10 05:35:00 Test Item Value Reference Range Interpretation Comments Glucose Level (test code = Glucose 90 74-106 Level) [facility]2019-07-10 05:35:00 Test Item Value Reference Range Interpretation Comments Globulin (test code = Globulin) 4.3 2.3-3.5 [facility]2019-07-10 05:35:00 Test Item Value Reference Range Interpretation Comments Estimat Glomerular 7 See_Comment [Automat ed message] The Filtration Rate (test system which generated code = Estimat this result t ransmitted Glomerular Filtration refere nce range: >=90. Rate) The reference r alba was not used to int erpret this result as normal/abnormal . [facility]2019-07-10 05:35:00 Test Item Value Reference Range Interpretation Comments Creatinine (test code = Creatinine) 6.02 0.55-1.3 [facility]2019-07-10 05:35:00 Test Item Value Reference Range Interpretation Comments Chloride Level (test code = Chloride 102 98-107 Level) [facility]2019-07-10 05:35:00 Test Item Value Reference Range Interpretation Comments Carbon Dioxide Level (test code = 25 21-32 Carbon Dioxide Level) [facility]2019-07-10 05:35:00 Test Item Value Reference Range Interpretation Comments Calcium Level (test code = Calcium 8.1 8.5-10.1 Level) [facility]2019-07-10 05:35:00 Test Item Value Reference Range Interpretation Comments Blood Urea Nitrogen (test code = Blood 43 7-18 Urea Nitrogen) [facility]2019-07-10 05:35:00 Test Item Value Reference Range Interpretation Comments Aspartate Amino Transf (AST/SGOT) (test 36 15-37 code = Aspartate Amino Transf (AST/SGOT)) [facility]2019-07-10 05:35:00 Test Item Value Reference Range Interpretation Comments Alkaline Phosphatase (test code = 252 45-117 Alkaline Phosphatase) [facility]2019-07-10 05:35:00 Test Item Value Reference Range Interpretation Comments Albumin/Globulin Ratio (test code = 0.7 1 1.1-1.8 Albumin/Globulin Ratio) [facility]2019-07-10 05:35:00 Test Item Value Reference Range Interpretation Comments Albumin (test code = Albumin) 3.2 3.4-5.0 [facility]2019-07-10 05:35:00 Test Item Value Reference Range Interpretation Comments Alanine Aminotransferase (ALT/SGPT) 57 12-78 (test code = Alanine Aminotransferase (ALT/SGPT)) [facility]2019-07-10 05:35:00 Test Item Value Reference Range Interpretation Comments White Blood Count (test code = White 2.9 4.3-10.9 Blood Count) [facility]2019-07-10 05:35:00 Test Item Value Reference Range Interpretation Comments Red Cell Distribution Width (test code 17.2 12.1-15.2 = Red Cell Distribution Width) [facility]2019-07-10 05:35:00 Test Item Value Reference Range Interpretation Comments Red Blood Count (test code = Red Blood 3.49 3.86-4.86 Count) [facility]2019-07-10 05:35:00 Test Item Value Reference Range Interpretation Comments Platelet Count (test code = Platelet 116 152-406 Count) [facility]2019-07-10 05:35:00 Test Item Value Reference Range Interpretation Comments Neutrophils % (test code = Neutrophils 49.4 41.7-73.7 %) [facility]2019-07-10 05:35:00 Test Item Value Reference Range Interpretation Comments Monocytes % (test code = Monocytes %) 10.4 3.3-12.3 [facility]2019-07-10 05:35:00 Test Item Value Reference Range Interpretation Comments Mean Platelet Volume (test code = Mean 8.7 7.6-11.3 Platelet Volume) [facility]2019-07-10 05:35:00 Test Item Value Reference Range Interpretation Comments Mean Corpuscular Volume (test code = 98.2 80-100 Mean Corpuscular Volume) [facility]2019-07-10 05:35:00 Test Item Value Reference Range Interpretation Comments Mean Corpuscular Hemoglobin Concent 33.0 32.0-36.0 (test code = Mean Corpuscular Hemoglobin Concent) [facility]2019-07-10 05:35:00 Test Item Value Reference Range Interpretation Comments Mean Corpuscular Hemoglobin (test 32.4 pg 27.0-35.0 code = Mean Corpuscular Hemoglobin) [facility]2019-07-10 05:35:00 Test Item Value Reference Range Interpretation Comments Lymphocytes % (test code = Lymphocytes 30.3 15.3-44.8 %) [facility]2019-07-10 05:35:00 Test Item Value Reference Range Interpretation Comments Hemoglobin (test code = Hemoglobin) 11.3 12.0-15.0 [facility]2019-07-10 05:35:00 Test Item Value Reference Range Interpretation Comments Hematocrit (test code = Hematocrit) 34.3 36.0-45.0 [facility]2019-07-10 05:35:00 Test Item Value Reference Range Interpretation Comments Eosinophils % (test code 8.8 See_Comment [A utomated message] The = Eosinophils %) system [facility] [employer] generated this result tra nsmitted reference range : <=4.4. The reference r alba was not used to int erpret this result as normal/abnormal . [facility]2019-07-10 05:35:00 Test Item Value Reference Range Interpretation Comments Basophils % (test code 1.1 See_Comment [Aut omated message] The = Basophils %) system which generated this result tra nsmitted reference range : <=1.3. The reference r alba was not used to int erpret this result as normal/abnormal . [facility]2019-07-10 05:35:00 Test Item Value Reference Range Interpretation Comments Absolute Neutrophil (test code = 1.4 1.8-8.0 Absolute Neutrophil) [facility]2019-07-10 05:35:00 Test Item Value Reference Range Interpretation Comments Absolute Monocytes (CBC) (test code = 0.3 0.1-1.3 Absolute Monocytes (CBC)) [facility]2019-07-10 05:35:00 Test Item Value Reference Range Interpretation Comments Absolute Lymphocytes (CBC) (test code = 0.9 0.7-4.9 Absolute Lymphocytes (CBC)) [facility]2019-07-10 05:35:00 Test Item Value Reference Range Interpretation Comments Absolute Eosinophils 0.3 See_Comment [Autom ated message] The (CBC) (test code = system wh ich generated Absolute Eosinophils this re sult transmitted (CBC)) reference range : <=0.5. The reference r alba was not used to int erpret this result as normal/abnormal . [facility]2019-07-10 05:35:00 Test Item Value Reference Range Interpretation Comments Absolute Basophils 0.0 See_Comment [Automat ed message] The (CBC) (test code = system wh ich generated Absolute Basophils this resu lt transmitted (CBC)) reference range : <=0.5. The reference r alba was not used to int erpret this result as normal/abnormal . [facility]2019-07-09 05:43:00 Test Item Value Reference Range Interpretation Comments Prothrombin Time (test code = 12.9 9.5-12.5 Prothrombin Time) [facility]2019-07-09 05:43:00 Test Item Value Reference Range Interpretation Comments INR International Normalized Ratio 1.10 1 (test code = INR International Normalized Ratio) [facility]2019-07-09 05:43:00 Test Item Value Reference Range Interpretation Comments Triglycerides Level (test code = 89 Triglycerides Level) [facility]2019-07-09 05:43:00 Test Item Value Reference Range Interpretation Comments Phosphorus Level (test code = 6.3 2.5-4.9 Phosphorus Level) [facility]2019-07-09 05:43:00 Test Item Value Reference Range Interpretation Comments Magnesium Level (test code = Magnesium 2.3 1.8-2.4 Level) [facility]2019-07-09 05:43:00 Test Item Value Reference Range Interpretation Comments LDL Cholesterol, Calculated (test code 47 1 = LDL Cholesterol, Calculated) [facility]2019-07-09 05:43:00 Test Item Value Reference Range Interpretation Comments HDL Cholesterol (test code = HDL 57 40-60 Cholesterol) [facility]2019-07-09 05:43:00 Test Item Value Reference Range Interpretation Comments Cholesterol/HDL Ratio (test code = 2.14 1 Cholesterol/HDL Ratio) [facility]2019-07-09 05:43:00 Test Item Value Reference Range Interpretation Comments Cholesterol Level (test code = 122 Cholesterol Level) [facility]2019-07-08 19:49:00 Test Item Value Reference Range Interpretation Comments Troponin I (test code = 0.59 See_Comment [Au tomated message] The Troponin I) system which ge nerated this result tra nsmitted reference range : <=0.045. The reference r alba was not used to int erpret this result as normal/abnormal . [facility]2019-07-08 12:50:00 Test Item Value Reference Range Interpretation Comments Hepatitis C Antibody Hepatitis C Antibody (test code = Hepatitis C Antibody) [facility]2019-07-08 12:50:00 Test Item Value Reference Range Interpretation Comments Hepatitis C Ab Signal/Cutoff Ratio 0.05 ratio (test code = Hepatitis C Ab Signal/Cutoff Ratio) [facility]2019-07-08 12:50:00 Test Item Value Reference Range Interpretation Comments Hepatitis B Surface Hepatitis B Surface Antigen (test code = Antigen Hepatitis B Surface Antigen) [facility]2019-07-08 12:50:00 Test Item Value Reference Range Interpretation Comments Hepatitis B Surface Hepatitis B Surface Antibody (test code = Antibody Hepatitis B Surface Antibody) [facility]2019-07-08 12:50:00 Test Item Value Reference Range Interpretation Comments Hepatitis B Core Total Hepatitis B Core Total Antibody (test code = Antibody Hepatitis B Core Total Antibody) [facility] [id number] 07:36:00 Test Item Value Reference Range Interpretation Comments Rapid Troponin I (test 0.66 See_Comment [Aut omated message] The code = Rapid Troponin system which generated I) this result tra nsmitted reference range : <=0.045. The reference r alba was not used to int erpret this result as normal/abnormal . [facility] [id number] 07:36:00 Test Item Value Reference Range Interpretation Comments LG-Lhi-S-Type Natriuretic Peptide (test 30644 code = SM-Nio-W-Type Natriuretic Peptide) [facility]
--- NOTE | 2021-07-06 12:26 | RAD REPORT ---
EXAM DESCRIPTION: CT - Abdomen Pelvis Wo Contrast - 07/06/2021 12:02 pm CLINICAL HISTORY: Abdominal pain. recent colonoscopy, rectal bleeding COMPARISON: Abdomen Pelvis W Contrast dated 06/07/2021 TECHNIQUE: CT imaging of the abdomen and pelvis was performed without contrast. Solid organ, bowel a nd vascular assessment is limited due to lack of IV and oral contrast. All CT scans are performed using dose optimization technique as appropriate and may include automated exposure control or mA/KV adjustment according to patient size. FINDINGS: Trace left pleural effusion and small right pleural effusion with atelectasis in the right lung base. Mild nodular liver contour is present compatible with mild cirrhosis. The spleen is mildly to moderat radha enlarged. Cholelithiasis. Both adrenal glands are within normal limits. Atrophic kidneys. Pancreas is atrophic. Mild free fluid is seen in the abdomen. No free air or bowel obstruction. Moderate atherosclerosis. The osseous structures are within normal limits. IMPRESSION: No acute abnormality is detected. Mild liver cirrhosis with mild splenomegaly. Cholelithiasis. Moderate atrophy of the kidneys. Mild ascites. Moderate right pleural effusion. A limited non-contrast examination was performed as detailed.
[2021-07-06 12:32] LABS: Absolute Lymphocytes (CBC) 0.7 K/uL (0.7-4.9); Hematocrit 23.7 % (36.0-45.0); Lymphocytes % 16.8 % (15.3-44.8); MPV 8.1 fL (7.6-11.3); RBC Red Blood Cell Count 2.51 M/uL (3.86-4.86)
[2021-07-06 12:35] LABS: Protime INR 1.04
[2021-07-06 12:46] LABS: Potassium 4.9 mmol/L (3.5-5.1)
--- NOTE | 2021-07-06 12:51 | ER ---
Nurse's Notes [facility] Name: Qiana Valdez Age: 65 yrs Sex: Female : 1955 Arrival Date: 07/06/2021 Time: 11:31 Bed 15 Private MD: Diagnosis: GI Bleed/ Gastrointestinal hemorrhage, unspecified;End stage renal disease Presentation: 07/06 11:39 Chief complaint: Patient states: Rectal bleeding with clots started at 3am. EMS states: ll1 Estimate .5L blood loss. BP 200/80, HR 70 paced. Just had colonscopy 3 days ago. Open heart surgery and brain bleed in the past month. Missed dialysis today. Coronavirus screen: Vaccine status: Patient reports receiving the 2nd dose of the covid vaccine. Client denies travel out of the [place] in the last 14 days. At this time, the client does not indicate any symptoms associated with coronavirus-19. Ebola Screen: Patient denies travel to an Ebola-affected area in the 21 days before illness onset. Initial Sepsis Screen: Does the patient meet any 2 criteria? No. Patient's initial sepsis screen is negative. Does the patient have a suspected source of infection? Yes: Other: rectal bleeding. Risk Assessment: Do you want to hurt yourself or someone else? Patient reports no desire to harm self or others. Onset of symptoms was July 06, 2021. 11:39 Method Of Arrival: EMS ll1 11:39 Acuity: SIXTO 2 ll1 Triage Assessment: 11:44 General: Appears ill, Behavior is cooperative, appropriate for age. Pain: Denies pain. ll1 Neuro: No deficits noted. Cardiovascular: Reports fatigue, lightheadedness, Denies chest pain. GI: Reports rectal bleeding, bloody stool. Historical: - Allergies: 11:38 No Known Allergies; ll1 - PMHx: 11:38 DIALYSIS MWF; ESRD; GERD; High Cholesterol; hyperparathyroidism; Diabetes - IDDM; ll1 Hypertension; IRON DEFICIENCY ANEMIA; Chronic ischemic heart disease; Myocardial infarction; Pacemaker; - PSHx: 11:38 Coronary artery bypass graft; ll1 - Immunization history:: Client reports receiving the 2nd dose of the Covid vaccine. - Social history:: Smoking status: Patient denies any tobacco usage or history of. - Family history:: not pertinent. - Hospitalizations: : Patient was recently seen at. Screenin:45 Abuse screen: Denies threats or abuse. Nutritional screening: No deficits noted. ll1 Tuberculosis screening: No symptoms or risk factors identified. Fall Risk No fall in past 12 months (0 pts). IV access (20 points). Ambulatory Aid- Crutches/Cane/Walker (15 pts). Gait- Weak (10 pts.). Total Overton Fall Scale indicates High Risk Score (45 or more points). Fall prevention measures have been instituted. Side Rails Up X 2 Frequent Obs/Assessments Occuring As available patient and family educated on Fall Prevention Program and Strategies. Assessment: 12:30 General: Appears in no apparent distress. uncomfortable, Behavior is calm, cooperative. ww Neuro: Level of Consciousness is awake, alert, obeys commands, Oriented to person, place, time, situation, Moves all extremities. Speech is normal. Cardiovascular: Patient's skin is warm and dry. Chest pain is denied. Respiratory: Airway is patent Respiratory effort is even, unlabored, Respiratory pattern is regular, symmetrical. GI: Abdomen is non-distended, Abdomen is tender to palpation X 4 quads. : bilateral forearm HD shunts, Patient and family states that the left forearm shunt no longer works. EENT: No signs and/or symptoms were reported regarding the EENT system. Derm: Skin is intact, multiple bruises all over arms, abdomen, legs, chest. 12:35 Reassessment: Reassessment: patient has a PICC line in the left chest wall. Dr. Sid pierre and SUNITA Frances verified it was a PICC line and Dr. Lau approved us using the PICC line. 12:48 GI: Stools are reported to be bright red blood clots, Dr. Lau informed. ww 13:30 Reassessment: Patient appears in no apparent distress at this time. No changes from ww previously documented assessment. Patient and/or family updated on plan of care and expected duration. Pain level reassessed. Patient is alert, oriented x 3, equal unlabored respirations, skin warm/dry/pink. daughter at bedside. 14:35 Reassessment: Patient appears in no apparent distress at this time. No changes from ww previously documented assessment. Patient and/or family updated on plan of care and expected duration. Pain level reassessed. Patient is alert, oriented x 3, equal unlabored respirations, skin warm/dry/pink. 15:30 Reassessment: Patient appears in no apparent distress at this time. No changes from ww previously documented assessment. Patient and/or family updated on plan of care and expected duration. Pain level reassessed. Patient is alert, oriented x 3, equal unlabored respirations, skin warm/dry/pink. 16:19 Reassessment: Patient appears in no apparent distress at this time. No changes from ww previously documented assessment. Patient and/or family updated on plan of care and expected duration. Pain level reassessed. Patient is alert, oriented x 3, equal unlabored respirations, skin warm/dry/pink. Passed large amount of bright red clots. Dr. Lau informed. 17:09 Reassessment: Patient appears in no apparent distress at this time. No changes from ww previously documented assessment. Report called to SUNITA Palmer at [facility]. She is being transported to [facility] room 1031. Daughter signed MOT. Patient is sleeping. 18:52 Reassessment: Patient appears in no apparent distress at this time. No changes from ww previously documented assessment. Patient and/or family updated on plan of care and expected duration. Pain level reassessed. Patient is alert, oriented x 3, equal unlabored respirations, skin warm/dry/pink. report given to EMS. Vital Signs: 11:39 Pulse 72; Resp 18; Temp 97.2; Pulse Ox 93% on R/A; ll1 11:52 BP 195 / 79; Pulse 72; Resp 15; Pulse Ox 93% ; ww 12:58 BP 184 / 75; Pulse 70; Resp 19; Pulse Ox 94% on R/A; Weight 65.77 kg; ww 13:30 BP 187 / 79; Pulse 70; Resp 17; Pulse Ox 94% on R/A; ww 14:30 BP 184 / 73; Pulse 70; Resp 14; Pulse Ox 95% on R/A; ww 15:30 BP 183 / 74; Pulse 70; Resp 17; Pulse Ox 97% on R/A; ww 16:30 BP 177 / 76; Pulse 70; Resp 14; Temp 97.8; Pulse Ox 96% on R/A; ww 17:10 BP 154 / 68; Pulse 70; Resp 14; Pulse Ox 92% on R/A; ww 18:30 BP 161 / 63; Pulse 71; Resp 19; Pulse Ox 92% on R/A; ww ED Course: 11:31 Patient arrived in ED. rn 11:31 Adam Lau MD is Attending Physician. rn 11:38 Kathryn Reeves, SUNITA is Primary Nurse. ll1 11:38 Arm band placed on Patient placed in an exam room, on a stretcher. ll1 11:44 Triage completed. ll1 11:44 CT Abd/Pelvis - Without Contrast Sent. ll1 11:45 Patient has correct armband on for positive identification. Bed in low position. Call ll1 light in reach. Side rails up X 1. passenger attendant on. Pulse ox on. NIBP on. 11:50 EKG done, by pathology tech. reviewed by Adam Lau MD. mb7 12:04 CT Abd/Pelvis - Without Contrast In Process Unspecified. EDMS 13:04 initiated transfer to [facility]. bd 14:26 pt denied at [facility] due to no icu or tele beds. initiated transfer to [facility]. 15:05 pt denied at [facility],due to pt being to complicated for [facility], per Alissa. bd 15:15 initiated transfer to [facility]. bd 15:37 pt denied at [place] due to no tele beds available in [place] system,per val. bd 16:07 initiated transfer to [facility]. bd 18:52 No provider procedures requiring assistance completed. Patient transferred, IV remains ww in place. Administered Medications: No medications were administered Outcome: 12:50 ER care complete, transfer ordered by . rn 17:10 Transferred by ground EMS to [facility], Note: report given to gabby Palmer RN 18:52 Condition: stable ww 18:53 Patient left the ED. gabby Signatures: Dispatcher [employer] EDMS Sarah Deleno Roman, MD MD rn Lewis, Lynsay RN RN Brittni Kraus mb7 Val Dubon RN RN ww
--- NOTE | 2021-07-06 12:51 | EDPHYS ---
Physician Documentation [facility] Name: Qiana Valdez Age: 65 yrs Sex: Female : 1955 Arrival Date: 07/06/2021 Time: 11:31 Bed 15 Private MD: ED Physician Adam Lau HPI: 07/06 11:39 This 65 yrs old Female presents to ER via Unassigned with complaints of Rectal rn Bleeding. 11:39 The patient presents to the emergency department with bleeding from the rectum/anus, rn that is moderate. Onset: The symptoms/episode began/occurred last night. Context: the patient has no known special context relating to the rectal area complaint(s). Modifying factors: The symptoms are alleviated by nothing, The symptoms are aggravated by bowel movement. Associate signs and symptoms: Pertinent positives: lower GI bleeding, Pertinent negatives: abdominal pain, fever. The patient has not experienced similar symptoms in the past. The patient has been recently seen by a physician:. Pt reports just had colonoscopy at [facility] Tuesday, found polyps, didn't restart anticoagulation, now has had 5 moderate-sized bloody bowel movements. Feels dizzy and lightheaded. No syncope. No sob. Is due for dialysis today. . Historical: - Allergies: 11:38 No Known Allergies; ll1 - PMHx: 11:38 DIALYSIS MWF; ESRD; GERD; High Cholesterol; hyperparathyroidism; Diabetes - IDDM; ll1 Hypertension; IRON DEFICIENCY ANEMIA; Chronic ischemic heart disease; Myocardial infarction; Pacemaker; - PSHx: 11:38 Coronary artery bypass graft; ll1 - Immunization history:: Client reports receiving the 2nd dose of the Covid vaccine. - Social history:: Smoking status: Patient denies any tobacco usage or history of. - Family history:: not pertinent. - Hospitalizations: : Patient was recently seen at. ROS: 11:39 Constitutional: Negative for fever, chills, and weight loss, Eyes: Negative for injury, rn pain, redness, and discharge, ENT: Negative for injury, pain, and discharge, Neck: Negative for injury, pain, and swelling, Cardiovascular: Negative for chest pain, palpitations, and edema, Respiratory: Negative for shortness of breath, cough, wheezing, and pleuritic chest pain, Abdomen/GI: Negative for abd pain, + bloody stool Back: Negative for injury and pain, : Negative for injury, bleeding, discharge, and swelling, MS/Extremity: Negative for injury and deformity, Skin: Negative for injury, rash, and discoloration, Neuro: Negative for headache, numbness, tingling, and seizure. Exam: 11:39 Constitutional: This is a well developed, well nourished patient who is awake, alert, rn and in no acute distress. Head/Face: Normocephalic, atraumatic. Eyes: Periorbital areas with no swelling, redness, or edema. + pale conjunctivae Cardiovascular: Regular rate and rhythm. No pulse deficits. Respiratory: Speaking full sentences, unlabored. No increased work of breathing, no retractions or nasal flaring. Abdomen/GI: soft, non-tender Skin: Warm, dry MS/ Extremity: Pulses equal, no cyanosis. Neuro: Awake and alert, GCS 15 Vital Signs: 11:39 Pulse 72; Resp 18; Temp 97.2; Pulse Ox 93% on R/A; ll1 11:52 BP 195 / 79; Pulse 72; Resp 15; Pulse Ox 93% ; ww 12:58 BP 184 / 75; Pulse 70; Resp 19; Pulse Ox 94% on R/A; Weight 65.77 kg; ww 13:30 BP 187 / 79; Pulse 70; Resp 17; Pulse Ox 94% on R/A; ww 14:30 BP 184 / 73; Pulse 70; Resp 14; Pulse Ox 95% on R/A; ww 15:30 BP 183 / 74; Pulse 70; Resp 17; Pulse Ox 97% on R/A; ww 16:30 BP 177 / 76; Pulse 70; Resp 14; Temp 97.8; Pulse Ox 96% on R/A; ww 17:10 BP 154 / 68; Pulse 70; Resp 14; Pulse Ox 92% on R/A; ww 18:30 BP 161 / 63; Pulse 71; Resp 19; Pulse Ox 92% on R/A; ww MDM: 11:31 Patient medically screened. rn 12:48 Differential diagnosis: Lower GI bleeding, bleeding from polypectomy. Data reviewed: rn vital signs, nurses notes, lab test result(s), radiologic studies, CT scan, and as a result, I will discharge patient. Counseling: I had a detailed discussion with the patient and/or guardian regarding: the historical points, exam findings, and any diagnostic results supporting the discharge/admit diagnosis, lab results, radiology results, the need to transfer to another facility, for higher level of care, [facility] does not immediately have the required specialist. Response to treatment: There is no appreciated change of the patient's symptoms at this time. 14:14 ED course: Platelets ordered, awaiting ICU bed clearance at [facility]. rn 14:46 ED course: [facility] without ICU bed. Connected me with [facility], they rn would like to review her recent medical records prior to acceptance. . 15:53 ED course: [facility] declined transfer stating she is "too complicated" even though rn there was an available bed. Initiated transfer to [place], but no call back. Attempting transfer to [facility]. Has had 2 more grossly bloody bowel movements since arrival. Vitals stable. . 16:23 ED course: Accepted for transfer to [facility]. . rn 07/06 11:32 Order name: CBC with Diff; Complete Time: 13:44 07/06 11:32 Order name: Basic Metabolic Panel; Complete Time: 13:44 07/06 11:32 Order name: Protime (+inr); Complete Time: 12:35 07/06 11:32 Order name: Ptt, Activated; Complete Time: 12:35 07/06 11:32 Order name: Lactate; Complete Time: 13:44 07/06 11:32 Order name: Type And Screen 07/06 12:38 Order name: CBC Smear Scan; Complete Time: 13:44 EDCO 07/06 12:54 Order name: SARS-COV-2 RT PCR; Complete Time: 13:44 EDCO 07/06 14:17 Order name: Bb Add On bd 07/06 16:07 Order name: Bb Add On bd 07/06 11:32 Order name: IV Start; Complete Time: 11:45 rn 07/06 11:32 Order name: IV Saline Lock - Large Bore; Complete Time: 11:45 rn 07/06 11:32 Order name: EKG; Complete Time: 11:33 rn 07/06 11:32 Order name: EKG - Nurse/Tech; Complete Time: 11:44 rn 07/06 11:32 Order name: CT Abd/Pelvis - Without Contrast; Complete Time: 12:35 rn 07/06 11:32 Order name: Cardiac monitoring; Complete Time: 11:44 rn 07/06 11:32 Order name: O2 Sat Monitoring; Complete Time: 11:44 rn 07/06 12:22 Order name: Labs - recollect needed: recollect lactate, please send to lab in ice; bd Complete Time: 12:34 Administered Medications: No medications were administered Disposition Summary: 07/06/21 12:50 Transfer Ordered Reason: Higher level of care rn Condition: Stable rn Problem: new rn Symptoms: are unchanged claim attorney [facility]23[facility] rn Accepting Physician: (07/06/21 18:53) gabby Diagnosis - GI Bleed/ Gastrointestinal hemorrhage, unspecified rn - End stage renal disease rn Forms: - Medication Reconciliation Form rn - SBAR form rn Signatures: Dispatcher [employer] EDMS Sarah Deleon Roman, MD MD rn Lewis, Lynsay, RN RN ll1 Val Dubon RN RN ww Corrections: (The following items were deleted from the chart) 12:54 12:41 COVID 19 CPL+MR.LAB.BRZ ordered. EDCO EDMS 16:23 12:50 Dr. sosa rn 16:23 12:50 [facility] rn rn 18:53 16:23 Dr. sosa ww
[2021-07-06 13:15] LABS: Anisocytosis 3+; Blood Morphology Comment NOTED (NOT SEEN); Platelet Estimate DECR; White Blood Cell Scan OK (OK)
[2021-07-06] MEDS ORDERED: NA CHLORIDE 0.9% 250 ML ONE (15:44)
[2021-07-06 19:25] VITALS: TEMP 97.8
[2021-07-06 19:26] VITALS: O2SAT 92
[2021-07-06 19:27] VITALS: BP 161/63
--- NOTE | 2021-07-07 08:32 | EKG ---
Test Date: 2021-07-06 Test Time: 11:36:30 Electric Sign Assembler: MEASUREMENT RESULTS: Intervals: Rate: 125 HI: 368 QRSD: 90 QT: 140 QTc: 202 [place]: P: 90 HI: 368 QRS: 128 T: 0 INTERPRETIVE STATEMENTS: Suspect arm lead reversal, interpretation assumes no reversal Sinus rhythm with 1st degree AV block with frequent ventricular-paced complexes Right ventricular hypertrophy Nonspecific T wave abnormality Abnormal ECG Compared to ECG 06/04/2021 19:55:55 First degree AV block now present Right ventricular hypertrophy now present T-wave abnormality now present Incomplete right bundle-branch block no longer present ST (T wave) deviation no longer present Possible ischemia no longer present Prolonged QT interval no longer present Electronically Signed On 07-07-21 08:28:15 CDT by Papi Mi
== END 2021-07-06 18:53 | disposition short-term general hospital (02) ==
LOC: ER 11:17
DX: K92.2 Gastrointestinal hemorrhage, unspecified (principal); E11.22 Type 2 diabetes mellitus with diabetic chronic kidney disease; I13.11 Hypertensive heart and chronic kidney disease without heart failure, with stage 5 chronic kidney disease, or end stage renal disease; N18.6 End stage renal disease; Z99.2 Dependence on renal dialysis; Z95.0 Presence of cardiac pacemaker; Z20.822 Contact with and (suspected) exposure to COVID-19
CPT/HCPCS: 93005; 85025; 80048; 36415; 86900; 86850; 85610; 86901; 83605; 85730; 74176; 99285; U0003; J7050

== ENCOUNTER 2021-10-12 11:03 | Inpatient (IN) | payer OTHER ==
[2021-10-12 11:50] LABS: Protime INR 1.02
[2021-10-12 12:29] LABS: BUN Blood Urea Nitrogen 90 mg/dL (7-18); Bicarbonate 18 mmol/L (21-32); Glomerular Filtration Rate 6 ml/min (=/>90); Glucose Level 154 mg/dL (74-106); Sodium Level 131 mmol/L (136-145); Troponin High Sensitivity 631.2 pg/mL (<58.9)
[2021-10-12 12:31] LABS: NT PRO-BNP > 175000 pg/mL (<125)
[2021-10-12 12:34] LABS: Potassium 5.6 mmol/L (3.5-5.1)
[2021-10-12 12:48] LABS: Absolute Lymphocytes (CBC) 1.2 K/uL (0.7-4.9); Lymphocytes % 25.4 % (15.3-44.8); MPV 8.4 fL (7.6-11.3); RBC Red Blood Cell Count 3.61 M/uL (3.86-4.86)
--- NOTE | 2021-10-12 12:54 | EDPHYS ---
Physician Documentation [facility] Name: Qiana Valdez Age: 66 yrs Sex: Female : 1955 Arrival Date: 10/12/2021 Time: 11:05 Bed 8 Private MD: ED Physician Adam Lau HPI: 10/12 12:53 This 66 yrs old Female presents to ER via Ambulatory with complaints of Chest rn Pain. 12:53 The patient or guardian reports chest pain that is located primarily in the substernal rn area. Onset: this morning. The pain does not radiate. Associated signs and symptoms: Pertinent positives: shortness of breath, Pertinent negatives: abdominal pain, cough, palpitations, syncope. The chest pain is described as a pressure, squeezing. Duration: The patient or guardian reports a single episode, that is still ongoing. Modifying factors: The symptoms are alleviated by nothing. the symptoms are aggravated by nothing. Severity of pain: At its worst the pain was moderate in the emergency department the pain has improved. The patient has experienced similar episodes in the past. The patient has not recently seen a physician. Pt reports chest pain, began this AM, non-radiating, assoc with sob. Went to dialysis and wouldn't do dialysis. Has had [place] in past. Pain improving.. Historical: - Allergies: 11:19 No Known Allergies; ap3 - PMHx: 11:19 Chronic ischemic heart disease; Diabetes - IDDM; DIALYSIS MWF; ESRD; GERD; High ap3 Cholesterol; hyperparathyroidism; Hypertension; IRON DEFICIENCY ANEMIA; Myocardial infarction; Pacemaker; - PSHx: 11:19 Coronary artery bypass graft; ap3 - Immunization history:: Client reports receiving the 2nd dose of the Covid vaccine. - Social history:: Smoking status: Smoking status: Patient denies any tobacco usage or history of. - Family history:: not pertinent. - Hospitalizations: : No recent hospitalization is reported. ROS: 12:53 Constitutional: Negative for fever, chills, and weight loss, Eyes: Negative for injury, rn pain, redness, and discharge, Neck: Negative for injury, pain, and swelling, Cardiovascular: Negative for palpitations, and edema, Respiratory: Negative for cough, wheezing, and pleuritic chest pain, Abdomen/GI: Negative for abdominal pain, nausea, vomiting, diarrhea, and constipation, MS/Extremity: Negative for injury and deformity, Skin: Negative for injury, rash, and discoloration, Neuro: Negative for headache, weakness, numbness, tingling, and seizure. Exam: 12:53 Constitutional: This is a well developed, well nourished patient who is awake, alert, rn and in no acute distress. Head/Face: Normocephalic, atraumatic. Cardiovascular: Regular rate and rhythm. No pulse deficits. Respiratory: No increased work of breathing, no retractions or nasal flaring. Abdomen/GI: Soft, non-tender Skin: Warm, dry MS/ Extremity: Pulses equal, no cyanosis. Neurovascular intact. Full, normal range of motion. Equal circumference. Neuro: Awake and alert, GCS 15 Vital Signs: 11:10 BP 134 / 60; Pulse 69; Resp 21; Temp 98.6; Pulse Ox 92% ; Weight 62 kg; Height 5 ft. 3 ap3 in. (160.02 cm); 11:50 BP 133 / 61; Pulse 75; Resp 16; Pulse Ox 100% ; Pain 7/10; jh6 11:10 Body Mass Index 24.21 (62.00 kg, 160.02 cm) ap3 MDM: 11:17 Patient medically screened. rn 12:53 Differential diagnosis: acute myocardial infarction, acute pericarditis, coronary rn artery disease congestive heart failure costochondritis, pleurisy, pneumonia, pneumothorax, stable angina, unstable angina. The patient was given aspirin in the Emergency Department. Data reviewed: vital signs, nurses notes. Data reviewed: lab test result(s), EKG, radiologic studies, plain films, and as a result, I will admit patient. Counseling: I had a detailed discussion with the patient and/or guardian regarding: the historical points, exam findings, and any diagnostic results supporting the discharge/admit diagnosis, lab results, radiology results, the need for further work-up and treatment in the hospital. Admission orders: after a detailed discussion of the patient's condition and case, the admit orders are written by me. 10/12 11:26 Order name: Basic Metabolic Panel; Complete Time: 12:52 rn 10/12 11:26 Order name: CBC with Diff; Complete Time: 12:52 rn 10/12 11:26 Order name: NT PRO-BNP; Complete Time: 12:52 rn 10/12 11:26 Order name: PT-INR; Complete Time: 12:52 10/12 11:26 Order name: Troponin HS; Complete Time: 12:52 10/12 11:26 Order name: SARS-COV-2 RT PCR (Document "Date of Onset" if Symptomatic) 10/12 11:26 Order name: XRAY Chest (1 view); Complete Time: 13:00 10/12 15:07 Order name: Echo with Doppler [facility] 10/12 15:07 Order name: Basic Metabolic Panel [facility] 10/12 15:07 Order name: Basic Metabolic Panel [facility] 10/12 15:07 Order name: CBC with Automated Diff [facility] 10/12 15:07 Order name: CBC with Automated Diff [facility] 10/12 15:07 Order name: Lipid Profile [facility] 10/12 15:07 Order name: Lipid Profile [facility] 10/12 11:26 Order name: EKG; Complete Time: 11:27 10/12 11:26 Order name: Cardiac monitoring; Complete Time: 12:58 10/12 11:26 Order name: EKG - Nurse/Tech; Complete Time: 12:58 10/12 11:26 Order name: IV Saline Lock; Complete Time: 12:59 10/12 11:26 Order name: Labs collected and sent; Complete Time: 12:59 10/12 11:26 Order name: O2 Per Protocol; Complete Time: 12:59 10/12 11:26 Order name: O2 Sat Monitoring; Complete Time: 12:59 10/12 12:04 Order name: Labs - recollect needed: cbc only (clotted); Complete Time: 12:58 3 10/12 15:07 Order name: CONS Physician Consult [facility] 10/12 15:07 Order name: Heart Healthy [facility] Administered Medications: 13:13 Drug: Aspirin Chewable Tablet 324 mg Route: PO; tp1 18:33 Follow up: Response: No adverse reaction [facility] 13:15 Drug: Rocephin (cefTRIAXone) 1 grams Route: IV; Rate: calculated rate; Site: right tp1 antecubital; 18:33 Follow up: Response: No adverse reaction jh6 Disposition Summary: 10/12/21 12:53 Hospitalization Ordered Hospitalization Status: Observation rn Provider: Ledy Argueta rn Location: Telemetry/MedSurg (observation) rn Condition: Stable rn Problem: new rn Symptoms: have improved rn Bed/Room Type: Standard rn Room Assignment: 219(10/12/21 16:14) ss Diagnosis - Chest pain, unspecified rn - End stage renal disease rn - Hyperkalemia rn Forms: - Medication Reconciliation Form rn - SBAR form rn Signatures: Dispatcher [employer] EDAdam Diaz MD MD rn Smirch, Shelby RN RN Katie Khoury 3 Irina Barber RN RN 3 Soledad Grullon 1 Meeta Hyatt RN jh6 Corrections: (The following items were deleted from the chart) 16:14 12:53 rn ss
--- NOTE | 2021-10-12 12:54 | ER ---
Nurse's Notes [facility] Name: Qiana Valdez Age: 66 yrs Sex: Female : 1955 Arrival Date: 10/12/2021 Time: 11:05 Bed 8 Private MD: Diagnosis: Chest pain, unspecified;End stage renal disease;Hyperkalemia Presentation: 10/12 11:10 Chief complaint: Patient states: she started having chest pain this morning around ap3 1000, and went to her dialysis appointment, however they would not do dialysis because they said it could make things worse. patient reports having a cardiac history including multiple NE's and cardiac surgery. Coronavirus screen: At this time, the client does not indicate any symptoms associated with coronavirus-19. Ebola Screen: No symptoms or risks identified at this time. Initial Sepsis Screen: Does the patient meet any 2 criteria? No. Patient's initial sepsis screen is negative. Does the patient have a suspected source of infection? No. Patient's initial sepsis screen is negative. Risk Assessment: Do you want to hurt yourself or someone else? Patient reports no desire to harm self or others. Onset of symptoms was October 12, 2021 at 10:00. 11:10 Method Of Arrival: Ambulatory ap3 11:21 Acuity: SIXTO 2 ap3 Triage Assessment: 11:21 General: Appears uncomfortable, Behavior is cooperative, anxious. Pain: Complains of ap3 pain in chest Pain currently is 7 out of 10 on a pain scale. Quality of pain is described as pressure. Neuro: Level of Consciousness is awake, alert, obeys commands, Oriented to person, place, time, situation. Cardiovascular: Reports chest pain, shortness of breath. Respiratory: Airway is patent Respiratory effort is even, unlabored. Historical: - Allergies: 11:19 No Known Allergies; ap3 - PMHx: 11:19 Chronic ischemic heart disease; Diabetes - IDDM; DIALYSIS MWF; ESRD; GERD; High ap3 Cholesterol; hyperparathyroidism; Hypertension; IRON DEFICIENCY ANEMIA; Myocardial infarction; Pacemaker; - PSHx: 11:19 Coronary artery bypass graft; ap3 - Immunization history:: Client reports receiving the 2nd dose of the Covid vaccine. - Social history:: Smoking status: Smoking status: Patient denies any tobacco usage or history of. - Family history:: not pertinent. - Hospitalizations: : No recent hospitalization is reported. Screenin:20 Abuse screen: Denies threats or abuse. Nutritional screening: No deficits noted. ap3 Tuberculosis screening: No symptoms or risk factors identified. Assessment: 11:21 Pain: Pain does not radiate. Pain began suddenly, 1 hour ago. ap3 11:46 General: Appears in no apparent distress. Behavior is calm, cooperative. Pain: jh6 Complains of pain in mid-sternal area Pain currently is 7 out of 10 on a pain scale. Quality of pain is described as pressure, Pain began suddenly, Is continuous. Cardiovascular: Reports chest pain, Capillary refill < 3 seconds is brisk Pulses are all present. Rhythm is ventricular pacer. Respiratory: Airway is patent Trachea midline Respiratory effort is even, unlabored, Breath sounds are clear. Vital Signs: 11:10 BP 134 / 60; Pulse 69; Resp 21; Temp 98.6; Pulse Ox 92% ; Weight 62 kg; Height 5 ft. 3 ap3 in. (160.02 cm); 11:50 BP 133 / 61; Pulse 75; Resp 16; Pulse Ox 100% ; Pain 7/10; jh6 11:10 Body Mass Index 24.21 (62.00 kg, 160.02 cm) ap3 ED Course: 11:05 Patient arrived in ED. rg4 11:17 Adam Lau MD is Attending Physician. rn 11:20 Arm band placed on left wrist. ap3 11:20 Patient maintains SpO2 saturation greater than 95% on room air. ap3 11:21 Triage completed. ap3 11:23 Meeta Hyatt, SUNITA is Primary Nurse. jh6 11:23 EKG done, by ED staff, reviewed by Adam Lua MD. ap3 11:48 XRAY Chest (1 view) In Process Unspecified. EDMS 11:49 No provider procedures requiring assistance completed. jh6 11:49 Initial lab(s) drawn, by ED staff, sent to lab. COVID swab sent to lab. jh6 11:50 Patient has correct armband on for positive identification. Placed in gown. Bed in low jh6 position. Call light in reach. Side rails up X 1. Client placed on continuous cardiac and pulse oximetry monitoring. NIBP monitoring applied. pl sql developer on. Pulse ox on. NIBP on. 11:58 Inserted saline lock: 20 gauge in left antecubital area, using aseptic technique. tp1 12:53 Ledy Argueta MD is Hospitalizing Provider. rn 14:21 Inserted saline lock: 24 gauge in left hand, using aseptic technique. [facility] Administered Medications: 13:13 Drug: Aspirin Chewable Tablet 324 mg Route: PO; tp1 18:33 Follow up: Response: No adverse reaction [facility] 13:15 Drug: Rocephin (cefTRIAXone) 1 grams Route: IV; Rate: calculated rate; Site: right tp1 antecubital; 18:33 Follow up: Response: No adverse reaction [facility] Medication: 18:33 VIS not applicable for this client. [facility] Outcome: 12:53 Decision to Hospitalize by Provider. rn 18:32 Admitted to Tele accompanied by tech, via wheelchair, Report called to 219 [facility] 18:32 Condition: stable 18:32 Instructed on the need for admit. 19:35 Patient left the ED. [facility] Signatures: Dispatcher [employer] EDMS Adam Lau MD MD rn Garcia, Rubi 4 Irina Barber RN RN sb3 Meeta Hyatt RN RN 6 Soledad Grullon tp1
--- NOTE | 2021-10-12 12:59 | RAD REPORT ---
EXAM DESCRIPTION: RAD - Chest Single View - 10/12/2021 11:46 am CLINICAL HISTORY: CHEST PAIN Chest pain. COMPARISON: Chest Single View dated 06/04/2021; Chest Single View dated 03/11/2021; Chest Single View d ated 03/09/2021; Chest Single View dated 12/29/2020 FINDINGS: Portable technique limits examination quality. Mild interstitial pulmonary edema. A large area of airspace opacity is present in the right lung base with right pleural effusion most compatible with pneumonia. The heart is mildly prominent with armando otomy wires present. Dual lead pacer device is present. IMPRESSION: Moderate right lower lobe pneumonia.
[2021-10-12] MEDS ORDERED: NA CHLORIDE 0.9% 50 ML ONE (13:17)
[2021-10-12] MEDS ORDERED: CEFTRIAXONE 1000 MG/VIAL ONE (13:17)
[2021-10-12] MEDS ORDERED: ASPIRIN 81 MG CHEWABLE TABLET ONE (13:17)
[2021-10-12] MEDS ORDERED: ALPRAZOLAM 0.25 MG TABLET PO PRN (15:02)
--- NOTE | 2021-10-12 15:02 | P.HP ---
Certification for Inpatient Patient admitted to: Observation With expected LOS: <2 Midnights Patient will require the following post-hospital care: None Practitioner: I am a practitioner with admitting privileges, knowledge of patient current condition, hospital course, and medical plan of care. Services: Services provided to patient in accordance with Admission requirements found in Title 42 Section 412.3 of the Code of Federal Regulations Patient History Date of Service: 10/12/21 Reason for admission: CP r/o ACS History of Present Illness: patient is a 66-year-old female who came to the hospital chest pain. Patient has a history of end-stage renal disease. She recently had a Bypass grafting. Her chest pain has improved. She will be admitted for observation. Will also get Nephrology to hemodialyze her. Allergies No Known Allergies Allergy (Verified 03/09/21 23:52) Home Medications: Amoxicillin 500 mg PO DAILY 10/13/21 Aspirin [Ecotrin 81 MG] 81 mg PO DAILY 10/13/21 Atorvastatin Calcium [Lipitor] 40 mg PO BEDTIME 10/13/21 Carvedilol [Coreg] 12.5 mg PO BID 10/13/21 Clopidogrel Bisulfate [Clopidogrel] 75 mg PO DAILY 10/13/21 Hydralazine [Apresoline*] 50 mg PO DAILY 10/13/21 Isosorbide Mononitrate [Isosorbide Mononitrate ER] 30 mg PO DAILY #30 tab.er.24h 10/13/21 Mirtazapine 15 mg PO BEDTIME 10/13/21 NIFEdipine [Procardia*] 10 mg PO TID 10/13/21 Na Bicarb Tab [Sodium Bicarb 325 MG Tab*] 1,300 mg PO BID #120 tab 10/13/21 Trazodone [Desyrel*] 50 mg PO BEDTIME 10/13/21 levETIRAcetam [Keppra*] 500 mg PO BEDTIME 10/13/21 - Past Medical/Surgical History Diabetic: Yes -: Hypertension -: Diabetes mellitus type 2 insulin-dependent -: ESRD - MWF -: Nonfuctioning LLE fistula -: Hyperlipidemia -: GERD -: CAD with prior stent, CABG -: Hyperparathyroidism -: Anemia of chronic disease with iron deficiency -: Diabetic neuropathy -: COVID-19 01/21/2020 -: Triple bypass 2016 -: Pacemaker -: Tubal ligation -: Fistula aneursym reconstruction 4 times -: Bilateral cataract surgery Psychosocial/ Personal History: Lives at home - Family History Mother Medical History: Heart disease - Social History Alcohol use: No CD- Drugs: No Caffeine use: Yes Review of Systems 10-point ROS is otherwise unremarkable Physical Examination - Vital Signs Temperature: 98 F Blood Pressure: 140/80 Pulse: 80 Respirations: 18 Pulse Ox (%): 95 - Physical Exam General: Alert, In no apparent distress, Oriented x3 HEENT: Atraumatic, PERRLA, Mucous membr. moist/pink, EOMI, Sclerae nonicteric Neck: Supple, 2+ carotid pulse no bruit, No LAD, Without JVD or thyroid abnormality Respiratory: Clear to auscultation bilaterally, Normal air movement Cardiovascular: Regular rate/rhythm, Normal S1 S2 Gastrointestinal: Normal bowel sounds, No tenderness Musculoskeletal: No tenderness Integumentary: No rashes Neurological: Normal gait, Normal speech, Normal strength at 5/5 x4 extr, Normal tone, Normal affect Lymphatics: No axilla or inguinal lymphadenopathy - Studies Laboratory Data (last 24 hrs) 10/12/21 12:37: WBC 4.6, Hgb 11.4 L, Hct 35.0 L, Plt Count 154 10/12/21 11:36: PT 11.2, INR 1.02 10/12/21 11:36: Sodium 131 L, Potassium 5.6 H*, BUN 90 H, Creatinine 7.14 H*, Glucose 154 H Assessment & Plan - Problems (Diagnosis) (1) Chest pain Current Visit: No Status: Acute (2) End-stage renal disease on hemodialysis Current Visit: No Status: Chronic (3) Type 2 diabetes mellitus Current Visit: No Status: Chronic Qualifiers: (4) Uncontrolled hypertension Current Visit: No Status: Chronic - Plan -High-sensitivity troponin -Cardiology consultation -Echocardiogram and stress test per cardiology recommendation -Repeat EKG -Work-up for other etiologies of cardiac chest pain if troponins remain negative -Lipid profile -Real Estate Officer regarding modifying risk for cardiac disease - Advance Directives Does patient have a Living Will: No Does patient have a Durable POA for Healthcare: No Critical Care: No Time Spent Managing PTS Care (In Minutes): 45
[2021-10-12] MEDS ORDERED: SOD POLYSTYREN SUL 15 GM/60 ML UCUP PO ONE ×2 (19:00→20:00)
[2021-10-12 20:17] VITALS: BMI 24.2
[2021-10-12] MEDS: SODIUM BICARB 325 MG TAB PO SCH (20:20)
[2021-10-12] MEDS: METOPROLOL TAR 25 MG TAB PO SCH (20:21)
[2021-10-12] MEDS: MORPHINE 2 MG/ML SYR IV PRN (20:36)
[2021-10-13 05:50] LABS: Absolute Lymphocytes (CBC) 0.9 K/uL (0.7-4.9); Hematocrit 34.5 % (36.0-45.0); Lymphocytes % 25.6 % (15.3-44.8); MCV 96.7 fL (80-100); MPV 8.1 fL (7.6-11.3); RBC Red Blood Cell Count 3.57 M/uL (3.86-4.86)
[2021-10-13 06:17] LABS: Potassium 5.6 mmol/L (3.5-5.1)
[2021-10-13] MEDS ORDERED: PNEUMOCOCCAL VACCINE 0.5 ML IMVAC ONE (08:00)
--- NOTE | 2021-10-13 08:23 | EKG ---
Test Date: 2021-10-12 Test Time: 11:19:02 Music Instructor: ALP MEASUREMENT RESULTS: Intervals: Rate: 134 SD: 384 QRSD: 146 QT: 142 QTc: 212 [place]: P: -36 SD: 384 QRS: 84 T: 0 INTERPRETIVE STATEMENTS: Demand pacemaker, interpretation is based on intrinsic rhythm Unusual P axis, possible ectopic atrial rhythm with premature ventricular complexes or fusion complexes Right bundle branch block Abnormal ECG Compared to ECG 07/06/2021 11:36:30 Right bundle-branch block now present Sinus rhythm no longer present First degree AV block no longer present Right ventricular hypertrophy no longer present T-wave abnormality no longer present Electronically Signed On 10-13-21 08:18:36 CDT by Papi Mi
[2021-10-13] MEDS: METOPROLOL TAR 25 MG TAB PO SCH ×2 (08:41→21:06)
[2021-10-13] MEDS: SODIUM BICARB 325 MG TAB PO SCH ×2 (08:42→21:06)
[2021-10-13] MEDS: HEPARIN 5000 UNIT/ML 1 ML VIAL SQ SCH ×3 (08:42→21:00)
[2021-10-13] MEDS ORDERED: ASPIRIN EC 81 MG TAB PO SCH (09:00)
[2021-10-13] MEDS ORDERED: ENOXAPARIN 40 MG/0.4 ML SQ SCH (09:00)
--- NOTE | 2021-10-13 14:09 | ECHO ---
HEIGHT: 5 ft 3 in WEIGHT: 136 lb 10.986 oz DATE OF STUDY: 10/13/[address]: Ledy Argueta MD 2-DIMENSIONAL: YES M.MODE: YES DOPPLER: YES COLOR FLOW: YES TDS: NO PORTABLE: YES DEFINITY: NO BUBBLE STUDY: NO DIAGNOSIS: CHEST PAIN/ RULE OUT ACUTE CORONARY SYNDROME CARDIAC HISTORY: CATHERIZATION: YES SURGERY: YES PROSTHETIC VALVE: NO PACEMAKER: YES MEASUREMENTS (cm) DIASTOLIC (NORMALS) SYSTOLIC (NORMALS) IVSd 1.1 (0.6-1.2) LA Diam 4.9 (1.9-4.0) LVEF 45% LVIDd 4.0 (3.5-5.7) LVIDs 3.1 (2.0-3.5) %FS 22% LVPWd 1.2 (0.6-1.2) Ao Diam 2.5 (2.0-3.7) 2 DIMENSIONAL ASSESSMENT: RIGHT ATRIUM: NORMAL LEFT ATRIUM: ENLARGED RIGHT VENTRICLE: NORMAL LEFT VENTRICLE: DEPRESSED EJECTION FRACTION TRICUSPID VALVE: MODERATE TRICUSPID REGURGITATION MITRAL VALVE: THICKENED VALVE WITH MILD MITRAL REGURGITATION PULMONIC VALVE: SEVERE PULMONIC INSUFFICIENCY AORTIC VALVE: NORMAL PERICARDIAL EFFUSION: SMALL AORTIC ROOT: NORMAL LEFT VENTRICULAR WALL MOTION: MILD GLOBAL HYPOKINESIS. DOPPLER/COLOR FLOW: SEE BELOW. COMMENTS: MILDLY DEPRESSED LEFT VENTRICULAR EJECTION FRACTION 45-50%. MILD GLOBAL HYPOKINESIS. MODERATE DIASTOLIC DYSFUNCTION. LEFT ATRIAL ENLARGEMENT. MILD MITRAL REGURGITATION, SEVERE PULMONIC INSUFFICIENCY. MODERATE TO SEVERE TRICUSPID REGURGITATION. PULMONARY HYPERTENSION WITH RIGHT VENTRICULAR SYSTOLIC PRESSURE GREATER THAN 60mmHg. TECHNOLOGIST: FERDINAND PERRY
--- NOTE | 2021-10-13 14:13 | CON ---
Date of Consultation: 10/13/2021 Reason For Consultation: Chest pain, elevated troponin. History Of Present Illness: This is a 66-year-old female with end-stage renal disease, on hemodialys is, known coronary artery disease, status post triple-vessel bypass in June and heart catheterizatio n after that showed patent grafts. Has history of hypertension, end-stage renal disease, on dialysis Tuesday, Tuesday, Tuesday, diabetes as well as dyslipidemia, presented with chest pain, retrosternal , pressure-like and not related to exertion. On same presentation, she had a few months back does giron ve a coronary angiogram that showed patent grafts and severe [place] coronary artery disease. Past Medical History: As outlined above in the HPI. Medications: Refer to reconciliation sheet for detailed sheet. Allergies: NO KNOWN DRUG ALLERGIES. Family History: No premature coronary artery disease or cancer. Social History: She does not smoke or drink. Does not use any drugs. Review of Systems: All systems reviewed and they are negative except what mentioned in HPI. Physical Examination: Vital Signs: Reviewed. Head and Neck: Pupils are equal, reactive to light. Intact eye movements. No JVD. No cervical lym phadenopathy. Neck is supple. Thyroid is not enlarged. Lungs: Clear to auscultation bilaterally. No rhonchi, wheezing, or crackles. No accessory muscle u se. Heart: Irregular. No extra sounds. Abdomen: Soft, nontender. Bowel sounds positive. No organomegaly. No masses or hernia. No rigidi ty or rebound. Extremities: No clubbing or cyanosis. Intact pulses. Skin: No rash. Neurologic: Alert, awake, oriented x3. No acute focal deficits appreciated. Investigations: Creatinine is 8.2. Troponin is 631 and then 590 and hemoglobin 11.5. Assessment And Recommendations: 1.Chest pain with borderline troponin leak. She had recent catheterization that showed totally mi nt grafts; however, she is coming in with chest pain and positive enzymes leak. I will do a Lexiscan nuclear stress test on her to further evaluate presence of ischemia. If that is positive, then we w ill plan for repeating the angiogram. 2.End-stage renal disease. Continue hemodialysis. 3.Hypertension. Resume home medications. Adjust as needed. /EVAN Voice ID: [id number] Report ID: [id number]
--- NOTE | 2021-10-13 16:43 | CON ---
Date of Consultation: 10/13/2021 Reason For Consultation: Elevated BUN and creatinine, fluid management. History Of Present Illness: This is a pleasant 66-year-old female, well known to me from the dialysis with significant past medical history of end-stage renal disease, on hemodialysis Tuesday, Tuesday, Tuesday at [facility], hyperlipidemia, renal artery stenosis status post angioplasty, diabetes complicated with neuropathy and nephropathy, endocarditis recently with strep bacteremia, treated on suppression treatment currently. The patient came to the hospital complaining from chest pain that she went to dialysis and because of the chest pain, they could not start the treatment. The patient over the night had been evaluated for that. Cardiac enzyme has been done. The patient denied any chest pain currently. Labs showed elevation in BUN and creatinine. For that reason, we have been consulted. Past Medical History: Includes; 1. Hypertension. 2. Endocarditis. 3. Hyperlipidemia. 4. End-stage renal disease. 5. Renal artery stenosis, status post angioplasty. 6. Diabetes complicated with neuropathy and nephropathy. Allergies: NO KNOWN DRUGS ALLERGY. Family History: Positive for diabetes. Social History: Denied smoking. Denied drinking. Denied drugs abuse. Review of Systems: Head and Neck: No red eye. No ear pain. GI: No nausea. No vomiting. : No polyuria. No dysuria. No hematuria. Aml Analyst: No vaginal discharge. Respiratory: Shortness of breath. Cardiovascular: Chest pain. Endocrine: No polydipsia. Skin: No rash. Neuro: Has neuropathy. Musculoskeletal: Generalized fatigue. Home Medications: Include aspirin, atorvastatin, calcium carbonate, lactulose, metoclopramide, nifedipine, pantoprazole, Plavix, carvedilol, hydralazine, nitroglycerin, and clindamycin. Physical Examination: General: When I saw the patient; the patient lying in bed comfortable. Vital Signs: Blood pressure 181/81, pulse of 74, afebrile. Chest: Clear to auscultation. Heart: S1, S2. Regular. Abdomen: Soft, nontender. Extremities: No edema. Neurological: Alert, oriented x3. No focal. Laboratory Data: WBC 3.4, H and H 11.5/34.5. Sodium 133, potassium 5.6, bicarb 20, BUN 113, creatinine 8.2, calcium 7.4. Chest x-ray showed cardiomegaly. Assessment And Plan: 1. End-stage renal disease with hyperkalemia, missed dialysis yesterday. I am going to go ahead and arrange for dialysis today. We will dialyze the patient on low-potassium bath and we will challenge and we will follow up. 2. Hypertension, not controlled. We will follow up blood pressure after dialysis. 3. Over volume. The patient is going to be challenged. 4. Hyperkalemia. The patient is going to be dialyzed on low-potassium bath. 5. Anemia of chronic kidney disease. No need for MELA given the hemoglobin above 11.5. 6. Diabetes as by primary. 7. Coronary artery disease as by primary. Time spent examining the patient [id number], reviewing the data, placing order, discussing with by bedside, discussing with staff member including charge nurse and nursing and hospitalist 65 minutes. LEIGHANN Voice ID: [id number] Report ID: [id number] SHRAVAN
--- NOTE | 2021-10-13 23:31 | P.PN ---
Subjective Date of Service: 10/13/21 Subjective: No new changes, No C/O voiced, Improving Review of Systems 10-point ROS is otherwise unremarkable Physical Examination - Vital Signs Temperature: 98 F Blood Pressure: 140/80 Pulse: 80 Respirations: 18 Pulse Ox (%): 95 - Physical Exam General: Alert, In no apparent distress HEENT: Atraumatic, PERRLA, EOMI Neck: Supple, JVD not distended Respiratory: Clear to auscultation bilaterally, Normal air movement Cardiovascular: Regular rate/rhythm, Normal S1 S2 Gastrointestinal: Normal bowel sounds, No tenderness Musculoskeletal: No tenderness Integumentary: No rashes Neurological: Normal speech, Normal tone, Normal affect Lymphatics: No axilla or inguinal lymphadenopathy - Studies Medications List Reviewed: Yes Assessment & Plan - Problems (Diagnosis) (1) Chest pain Current Visit: No Status: Acute (2) End-stage renal disease on hemodialysis Current Visit: No Status: Chronic (3) Type 2 diabetes mellitus Current Visit: No Status: Chronic Qualifiers: (4) Uncontrolled hypertension Current Visit: No Status: Chronic (5) Epistaxis Current Visit: Yes Status: Acute - Plan -High-sensitivity troponin No significant changes. Anticipate discharge home after dialysis. -Cardiology consultation Appreciated -patient w/ nosebleed; humidify oxygen; monitor H& H. Anticipate discharge today. -Repeat EKG -Work-up for other etiologies of cardiac chest pain if troponins remain negative -Endoscopy Technican regarding modifying risk for cardiac disease -Hemodialysis per Nephrology Discharge Plan: Home Plan to discharge in: Greater than 2 days - Advance Directives Does patient have a Living Will: No Does patient have a Durable POA for Healthcare: No - Code Status/Comfort Care Code Status Assessed: Yes Code Status: Full Code Critical Care: No Time Spent Managing PTS Care (In Minutes): 45
[2021-10-13] MEDS ORDERED: levETIRAcetam 500 MG TAB PO ONE (23:33)
[2021-10-14] MEDS: MORPHINE 2 MG/ML SYR IV PRN ×3 (00:59→21:17)
[2021-10-14] MEDS: carvediloL 12.5 MG TAB PO SCH ×2 (07:30→17:31)
[2021-10-14] MEDS: METOPROLOL TAR 25 MG TAB PO SCH ×2 (07:30→20:51)
[2021-10-14 07:33] LABS: Absolute Lymphocytes (CBC) 0.9 K/uL (0.7-4.9); Hematocrit 34.8 % (36.0-45.0); Lymphocytes % 30.9 % (15.3-44.8); RBC Red Blood Cell Count 3.63 M/uL (3.86-4.86)
[2021-10-14 07:36] LABS: Protime INR 1.13
[2021-10-14 07:51] LABS: Potassium 4.5 mmol/L (3.5-5.1)
[2021-10-14] MEDS ORDERED: REGADENOSON 0.4 MG/5 ML SYR IV ONE (08:30)
[2021-10-14] MEDS ORDERED: NIFEdipine 10 MG CAP PO SCH (09:00)
[2021-10-14] MEDS: CLOPIDOGREL 75 MG TABLET PO SCH (09:21)
[2021-10-14] MEDS: AMOXICILLIN TRIHYDR 250 MG CAP PO SCH (09:21)
[2021-10-14] MEDS: ACETAMINOPHEN 500 MG TAB PO PRN ×2 (09:21→15:03)
[2021-10-14] MEDS: HYDRALAZINE HCL 25 MG TABLET PO SCH (09:21)
[2021-10-14] MEDS: SODIUM BICARB 325 MG TAB PO SCH (09:22)
[2021-10-14] MEDS ORDERED: ONDANSETRON 4 MG/2 ML VIAL ONE (12:27)
[2021-10-14] MEDS ORDERED: ONDANSETRON 4 MG/2 ML VIAL IV ONE (12:54)
--- NOTE | 2021-10-14 13:48 | RAD REPORT ---
EXAM DESCRIPTION: NM - Rest Stress Cardiac Imaging - 10/14/2021 1:24 pm CLINICAL HISTORY: Chest pain COMPARISON: July 2019 TECHNIQUE: The patient was administered 10.2 mCi of Tc 99m Sestamibi prior to resting SPECT imaging of the heart. The patient was then administered 27.8 mCi of Tc 99m Sestamibi following exercise or ph armacologic stress. Multiplanar SPECT images were reviewed. FINDINGS: The end diastolic volume is 116 ml, the end systolic volume is 51 ml, and the ejection fra ction is 56 %. End-diastolic volume was 152 mL in the ejection fraction was 43% on the 2020 study. Moderate diminished activity is seen in the anterior wall near the left ventricular base on stress im aging. This is not present on the rest sequencing. This defect was not present on the 2020 study. No other areas of abnormally diminished activity. IMPRESSION: Moderate area of stress ischemic change in the anterior wall involving the left ventricu lar base. No other areas of stress ischemia or scarring identified. End-diastolic volume was 116 mL with ejection fraction of 56%. These values are both improvements fro m the 152 mL EDV and 43% EF on the 2020 study.
--- NOTE | 2021-10-14 17:40 | PN ---
Date of Progress Note: 10/14/2021 Subjective: Patient was admitted with unstable angina. Patient was supposed to have a stress test today. I could not do the second session because of low blood pressure. Objective: Vital Signs: Currently, blood pressure 126/60, pulse of 88. Chest: Clear to auscultation. Heart: S1, S2. Regular. Abdomen: Soft, nontender. Extremities: No edema. AV fistula. Neuro: Alert. No focality. Laboratory Data: WBC 2.9, H and H 11.6/34.8. Sodium 136, potassium 4.5, bicarb 27, BUN 69, creatinine 5.8, calcium 8. Troponin elevated. Current Medications: The patient is on include Plavix, amoxicillin 500 daily, atorvastatin, carvedilol, hydralazine, metoprolol, nifedipine, mirtazapine, Keppra, alprazolam, sodium bicarbonate. Assessment And Plan: 1. End-stage renal disease, over volume. We will arrange for another session of dialysis tomorrow and we will follow up. 2. Hypertension. Today, had incident of low blood pressure. I am going to go ahead and discontinue Procardia. We will follow up. 3. Anemia of chronic kidney disease. Hemoglobin and hematocrit are stable. No need for MELA. 4. Secondary hyperparathyroid. Continue current binder. 5. Renal artery stenosis, status post stenting, stable. 6. Over volume. We will challenge the patient again. 7. Acidosis. Discontinue bicarb. Time spent examining the patient [id number], reviewing the data, placing order, discussing with by bedside, discussing with staff member including charge nurse and nursing and hospitalist 45 minutes. LEIGHANN Voice ID: [id number] Report ID: [id number] SHRAVAN
[2021-10-14] MEDS: MIRTAZAPINE 15 MG TAB PO SCH (20:50)
[2021-10-14] MEDS: ATORVASTATIN 40 MG TAB PO SCH (20:50)
[2021-10-14] MEDS: levETIRAcetam 500 MG TAB PO SCH (20:50)
--- NOTE | 2021-10-15 00:03 | P.PN ---
Date of Service: 10/14/21 Subjective Patient 's epitaxis has improved. Patient's stress test showed moderate area of reversible ischemia in the LV apex. Left heart catheterization in the morning. Review of Systems 10-point ROS is otherwise unremarkable Physical Examination - Vital Signs reviewed - Physical Exam General: Alert, In no apparent distress Respiratory: Clear to auscultation bilaterally, Normal air movement Cardiovascular: Regular rate/rhythm, Normal S1 S2 Gastrointestinal: Normal bowel sounds, No tenderness Musculoskeletal: No tenderness Neurological: Normal speech, Normal tone, Normal affect Assessment & Plan - Problems (Diagnosis) (1) Chest pain Current Visit: No Status: Acute (2) End-stage renal disease on hemodialysis Current Visit: No Status: Chronic (3) Type 2 diabetes mellitus Current Visit: No Status: Chronic Qualifiers: (4) Uncontrolled hypertension Current Visit: No Status: Chronic (5) Epistaxis Current Visit: Yes Status: Acute - Plan Plan of care as mentioned below: -High-sensitivity troponin was elevated so we did a stress test which showed reversible ischemia -Cardiology consultation Appreciated; left heart catheterization in the morning -patient w/ nosebleed; humidify oxygen; monitor H& H. Anticipate discharge today. -Data Management Specialist regarding modifying risk for cardiac disease -Hemodialysis per Nephrology Discharge Plan: Home Plan to discharge in: Greater than 2 days - Advance Directives Does patient have a Living Will: No Does patient have a Durable POA for Healthcare: No - Code Status/Comfort Care Code Status Assessed: Yes Code Status: Full Code Critical Care: No Time Spent Managing PTS Care (In Minutes): 45
[2021-10-15 06:37] LABS: Absolute Lymphocytes (CBC) 0.6 K/uL (0.7-4.9); Hematocrit 32.1 % (36.0-45.0); Lymphocytes % 22.5 % (15.3-44.8); MCV 95.5 fL (80-100); MPV 7.9 fL (7.6-11.3); RBC Red Blood Cell Count 3.37 M/uL (3.86-4.86)
[2021-10-15 06:48] LABS: Magnesium 2.7 mg/dL (1.8-2.4); Potassium 4.5 mmol/L (3.5-5.1)
--- NOTE | 2021-10-15 07:12 | TREADPHA ---
DX: ELEVATED TROPONIN Date of Study: 10/14/2021 Ht: 5' 3 " Wt: 136 lb 10.986 oz Consulting Physician: CRISSY MEDICATIONS: AMOXIL, LIPITOR, COREG, PLAVIX, APRESOLINE, LOPRESSOR, REMERON, PROCARDIA HISTORY: 66 YEAR OLD FEMALE WITH COMPLAINTS OF CHEST PAIN. HISTORY OF HYPERTENSION, DIABETES MELLITUS, END STAGE RENAL DISEASE, CORONARY ARTERY BYPASS GRAFT, PACEMAKER, NON-SMOKER, NON-DRINKER. PHYSICIAL EXAMINATION: RESTING B.P.: 107/51 RESTING H.R.: 71 RESTING EKG: PACED RHYTHM PROTOCOL: PHARMACOLOGIC EXERCISE TIME: 3:30 B.P. AT [place] STRESS: 101/44 IMPRESSION: LEXISCAN INJECTED FOLLOWED BY CARDIOLITE PER PROTOCOL. SEE NUCLEAR MEDICINE REPORT. NO SUPRAVENTRICULAR TACHYCARIDA, VENTRICULAR TACHYCARDIA, PREMATURE ATRIAL COMPLEXES. PATIENT HAD NUMEROUS RUNS OF PREMATURE VENTRICULAR COMPLEXES. NO CHEST PAIN REPORTED.
[2021-10-15] MEDS: carvediloL 12.5 MG TAB PO SCH ×3 (08:00→21:00)
[2021-10-15] MEDS: AMOXICILLIN TRIHYDR 250 MG CAP PO SCH (09:00)
[2021-10-15] MEDS: CLOPIDOGREL 75 MG TABLET PO SCH (09:00)
[2021-10-15] MEDS: METOPROLOL TAR 25 MG TAB PO SCH ×2 (09:00→20:59)
[2021-10-15] MEDS: HYDRALAZINE HCL 25 MG TABLET PO SCH (09:00)
[2021-10-15 10:04] LABS: White Blood Cell Scan OK (OK)
[2021-10-15 10:05] LABS: Blood Morphology Comment NOTED (NOT SEEN); Hypochromasia 1+; Platelet Estimate DECR
[2021-10-15] MEDS ORDERED: HEPA 1000U/500MLS 2,000 UNIT/1,000 ML BAG IV ONE ×3 (11:11→14:56)
[2021-10-15] MEDS ORDERED: LIDOCAINE 1% 20 ML MDV ONE (11:11)
[2021-10-15] MEDS ORDERED: NA CHLORIDE 0.9% 500 ML ONE (13:26)
[2021-10-15] MEDS ORDERED: HEPARIN 10,000 UNIT/10 ML VIAL IV ONE (14:56)
[2021-10-15] MEDS ORDERED: HEPARIN 5000 UNIT/ML 1 ML VIAL ONE (14:56)
[2021-10-15] MEDS ORDERED: VERAPAMIL HCL 10 MG/4 ML VIAL IV ONE (14:56)
[2021-10-15] MEDS ORDERED: ATROPINE SULF 1 MG/10 ML SYR IV ONE (14:57)
[2021-10-15] MEDS ORDERED: TICAGRELOR 90 MG TABLET PO ONE (14:57)
[2021-10-15] MEDS ORDERED: NITROGLYCERIN 100 MCG/ML SYR (for cath lab use only) IV ONE (14:57)
[2021-10-15] MEDS ORDERED: CLOPIDOGREL 75 MG TABLET ONE (14:59)
[2021-10-15] MEDS ORDERED: ASPIRIN 325 MG TAB ONE (14:59)
[2021-10-15] MEDS ORDERED: FENTANYL CITR 100 MCG/2 ML ONE (15:42)
[2021-10-15] MEDS ORDERED: HYDRALAZINE HCL 20 MG/ML VIAL ONE (15:44)
--- NOTE | 2021-10-15 19:46 | PN ---
Date of Progress Note: 10/15/2021 Subjective: The patient admitted with chest pain. The patient had end-stage renal disease, on hemodialysis. The patient is scheduled for cardiac cath today. Physical Examination: Vital Signs: Blood pressure of 161/77, pulse of 70, afebrile. Chest: Clear to auscultation. Heart: S1, S2. Systolic murmur. Abdomen: Soft, nontender. Extremities: No edema. Laboratory Data: H and H of 10.7/32.1. Sodium 133, potassium 4.5, bicarb 23, BUN 89, creatinine 6.8, calcium 8, magnesium 2.7. Current Medications: The patient on include heparin, carvedilol, hydralazine 50 daily, metoprolol 25, Keppra, mirtazapine, alprazolam. Assessment And Plan: 1. End-stage renal disease. Normal volume currently. We will continue dialysis. The patient is scheduled for dialysis today. We will do dialysis after catheterization. 2. Hyperkalemia, status post dialysis, resolved. 3. Over volume. Currently normal volume. We will continue dialysis 3 times a week. 4. Hypertension. Had episode of low blood pressure. We discontinued nifedipine. Currently, blood pressure stable. Continue current treatment. 5. Renal artery stenosis, stable. 6. [id number] myocardial infarction as by Cardiology. We will follow up after catheterization. Time spent examining the patient [id number], reviewing the data, placing order, discussing with by bedside, discussing with staff member including charge nurse and nursing and hospitalist 45 minutes. LEIGHANN Voice ID: [id number] Report ID: [id number] SHRAVAN
[2021-10-15] MEDS: levETIRAcetam 500 MG TAB PO SCH (20:58)
[2021-10-15] MEDS: MIRTAZAPINE 15 MG TAB PO SCH (21:01)
[2021-10-15] MEDS: ATORVASTATIN 40 MG TAB PO SCH (21:04)
--- NOTE | 2021-10-16 08:19 | P.PN ---
Date of Service: 10/15/21 Subjective Patient scheduled for cardiac catheterization today. Hemodialysis afterwards and possible discharge home in the morning Review of Systems 10-point ROS is otherwise unremarkable Physical Examination - Vital Signs reviewed - Physical Exam General: Alert, In no apparent distress Respiratory: Clear to auscultation bilaterally, Normal air movement Cardiovascular: Regular rate/rhythm, Normal S1 S2 Gastrointestinal: Normal bowel sounds, No tenderness Musculoskeletal: No tenderness Neurological: Normal speech, Normal tone, Normal affect Assessment & Plan - Problems (Diagnosis) (1) Chest pain Current Visit: No Status: Acute (2) End-stage renal disease on hemodialysis Current Visit: No Status: Chronic (3) Type 2 diabetes mellitus Current Visit: No Status: Chronic Qualifiers: (4) Uncontrolled hypertension Current Visit: No Status: Chronic (5) Epistaxis Current Visit: Yes Status: Acute - Plan Plan of care as mentioned below: -Scheduled for cardiac catheterization today -Cardiology consultation Appreciated; stress test was positive -patient w/ nosebleed; humidify oxygen; monitor H& H. Anticipate discharge today. -Vehicle Operator Technician regarding modifying risk for cardiac disease -Hemodialysis per Nephrology Discharge Plan: Home Plan to discharge in: Greater than 2 days - Advance Directives Does patient have a Living Will: No Does patient have a Durable POA for Healthcare: No - Code Status/Comfort Care Code Status Assessed: Yes Code Status: Full Code Critical Care: No Time Spent Managing PTS Care (In Minutes): 45
--- NOTE | 2021-10-16 08:25 | P.DS ---
Discharge Date: 10/16/21 Disposition: ROUTINE DISCHARGE Discharge Condition: GOOD Reason for Admission: CP r/o ACS - Problems (1) Chest pain Current Visit: No Status: Acute (2) End-stage renal disease on hemodialysis Current Visit: No Status: Chronic (3) Type 2 diabetes mellitus Current Visit: No Status: Chronic Qualifiers: (4) Uncontrolled hypertension Current Visit: No Status: Chronic (5) Epistaxis Current Visit: Yes Status: Acute Brief History of Present Illness: patient is a 66-year-old female who came to the hospital chest pain. Patient has a history of end-stage renal disease. She recently had a Bypass grafting. Her chest pain has improved. She will be admitted for observation. Will also get Nephrology to hemodialyze her. Hospital Course: Patient had a prolonged hospitalization because of her cardiac symptoms. We did a stress test which showed reversible ischemia. Cardiac catheterization was performed. Patient required stent in the common internal iliac artery. Patient is clinically doing well. Will discuss with cardiology and nephrology and anticipate discharge today. Vital Signs/Physical Exam: Temp Pulse Resp BP Pulse Ox 98 F 80 16 151/67 H 90 L 10/16/21 04:00 10/16/21 04:00 10/16/21 04:00 10/16/21 04:00 10/16/21 04:00 General: Alert, In no apparent distress, Oriented x3 Laboratory Data at Discharge: WBC 2.7 K/uL (4.3-10.9) L 10/15/21 05:57 Hgb 10.7 g/dL (12.0-15.0) L 10/15/21 05:57 Hct 32.1 % (36.0-45.0) L 10/15/21 05:57 Plt Count 127 K/uL (152-406) L 10/15/21 05:57 PT 12.5 SECONDS (9.5-12.5) 10/14/21 07:12 INR 1.13 10/14/21 07:12 APTT 37.6 SECONDS (24.3-36.9) H 10/14/21 07:12 Sodium 133 mmol/L (136-145) L 10/15/21 05:57 Potassium 4.5 mmol/L (3.5-5.1) 10/15/21 05:57 BUN 89 mg/dL (7-18) H D 10/15/21 05:57 Creatinine 6.82 mg/dL (0.55-1.3) H* 10/15/21 05:57 Glucose 90 mg/dL (74-106) 10/15/21 05:57 Magnesium 2.7 mg/dL (1.8-2.4) H 10/15/21 05:57 Triglycerides 58 mg/dL (<150) 10/13/21 05:38 Cholesterol 115 mg/dL (<200) 10/13/21 05:38 HDL Cholesterol 52 mg/dL (40-60) 10/13/21 05:38 Cholesterol/HDL Ratio 2.21 10/13/21 05:38 Home Medications: Amoxicillin 500 mg PO DAILY 10/13/21 Aspirin [Ecotrin 81 MG] 81 mg PO DAILY 10/13/21 Atorvastatin Calcium [Lipitor] 40 mg PO BEDTIME 10/13/21 Carvedilol [Coreg] 12.5 mg PO BID 10/13/21 Clopidogrel Bisulfate [Clopidogrel] 75 mg PO DAILY 10/13/21 Hydralazine [Apresoline*] 50 mg PO DAILY 10/13/21 Isosorbide Mononitrate [Isosorbide Mononitrate ER] 30 mg PO DAILY #30 tab.er.24h 10/13/21 Mirtazapine 15 mg PO BEDTIME 10/13/21 NIFEdipine [Procardia*] 10 mg PO TID 10/13/21 Na Bicarb Tab [Sodium Bicarb 325 MG Tab*] 1,300 mg PO BID #120 tab 10/13/21 Trazodone [Desyrel*] 50 mg PO BEDTIME 10/13/21 levETIRAcetam [Keppra*] 500 mg PO BEDTIME 10/13/21 Fluticasone [Flonase 50mcg Nasal [place]] 2 sprays NS DAILY #1 btl 10/14/21 Clopidogrel Bisulfate [Plavix] 75 mg PO DAILY #30 tablet 10/16/21 New Medications: Fluticasone [Flonase 50mcg Nasal [place]] 2 sprays NS DAILY #1 btl Isosorbide Mononitrate [Isosorbide Mononitrate ER] 30 mg PO DAILY #30 tab.er.24h Clopidogrel Bisulfate [Plavix] 75 mg PO DAILY #30 tablet Na Bicarb Tab [Sodium Bicarb 325 MG Tab*] 1,300 mg PO BID #120 tab Physician Discharge Instructions: -DC IV and DC home -Follow-up with PCP in 1 to 2 weeks -Follow-up with Cardiology in 1 to 2 weeks -Follow-up with Nephrology in 1 to 2 weeks; continue regular scheduled for hemodialysis -Please call Dr. Argueta at [phone] if any questions regarding hospital stay -Please call nursing station at [phone] if any nursing or medication questions -Return to the emergency room if symptoms worsen Diet: Renal Activity: Fall precautions Followup: NONE,NONE [Primary Care Provider] - Time spent managing pt's care (in minutes): 35
[2021-10-16] MEDS: carvediloL 12.5 MG TAB PO SCH (08:42)
[2021-10-16] MEDS: AMOXICILLIN TRIHYDR 250 MG CAP PO SCH (08:42)
[2021-10-16] MEDS: METOPROLOL TAR 25 MG TAB PO SCH (08:43)
[2021-10-16] MEDS: HYDRALAZINE HCL 25 MG TABLET PO SCH (08:43)
[2021-10-16] MEDS: CLOPIDOGREL 75 MG TABLET PO SCH (08:43)
[2021-10-16 09:00] VITALS: O2SAT 91
[2021-10-16 12:37] VITALS: BP 156/71; TEMP 97.7
--- NOTE | 2021-10-16 16:11 | P.PN ---
Subjective Date of Service: 10/16/21 Chief Complaint: CP r/o ACS Subjective: No new changes Physical Examination - Vital Signs Temperature: 97.7 F Blood Pressure: 156/71 Pulse: 71 Respirations: 18 Pulse Ox (%): 91 - Physical Exam General: In no apparent distress HEENT: Atraumatic, Normocephalic Neck: Supple, JVD not distended Respiratory: Other (Symmetric chest expansion) Cardiovascular: No rubs, No murmurs Gastrointestinal: Soft and benign, Non-distended Musculoskeletal: No clubbing Integumentary: No warmth Neurological: Normal speech, Normal tone Urinary: Other (No bladder distention) External genitalia: Deferred Rectal: Deferred - Studies Medications List Reviewed: Yes Assessment And Plan - Plan 1. End-stage renal disease. Cont HD tts. Received HD yesterday. 2. Hyperkalemia, status post dialysis, resolved. 3. Over volume. Currently normal volume. We will continue dialysis 3 times a week. 4. Hypertension. Cont current BP med regimen. 5. Renal artery stenosis, stable. Cont currrent BP meds. 6. [id number] myocardial infarction. Per Cardiology.
--- NOTE | 2021-10-17 10:11 | PN ---
Date of Progress Note: 10/14/2021 Ms. Valdez has came in with chest pain. Has a history of coronary artery disease, status post bypass surgery. Her stress test was done on 10/14/2021 and it showed moderate area of ischemic changes in t he anterior wall involving the left ventricular base. We will plan a left heart catheterization to d efine her coronary anatomy. This will be done by Dr. Santamaria on 10/15/2021. Her ejection fraction wa s 56%, which has improved from a previous study with her EF of 43%. We will continue her present reg imen, see what the catheterization shows before making further decisions. DENG/EVAN Voice ID: [id number] Report ID: [id number]
--- OUTSIDE RECORDS SUMMARY | 2021-10-21 23:41 | XMS REPORT | Continuity of Care Document ---
:1955 Author Organization [facility] t Address [address] [place] [address] Care Team Providers Name Role Phone Robert Knapp MD Primary Care Physician ANGELA LOCO Attending Clinician Unavail ambrocio Fuentes MD Attending Clinician OZZIE MENDIOLA Attending Clinician Unavailable Nola RUSSO Attending Clinician Unavailable NOÉ Attending Clinician Unavailable Brian Loco MD Attending Clinician [phone] William Grullon MD Attending Clinician Kalyan Dodd MD Attending Clinician Marissa TRUJILLO, [facility] Attending Clinician Antonette Santana MD Attending Clinician Sergei Link MD Attending Clinician Nola Russo MD Attending Clinician Lori Argueta MD Attending Clinician Tiffany Attending Clinician Unavailable Donte TRUJILLO Attending Clinician Donald RN, B Attending Clinician Unavailable Tristan Attending Clinician Unavailable Singer OLIVIER Attending Clinician William TRUJILLO Attending Clinician WILLIAM Attending Clinician Unavailable Fuentes DORSEY Attending Clinician Unavailable Freddie Attending Clinician Unavailable Kim WHITE Attending Clinician BRIAN LOCO Admitting Clinician Unavailable CECILE Admitting Clinician Unavailable William TRUJILLO Admitting Clinician WILLIAM Admitting Clinician Unavailable Payers Payer Name Policy Type Policy Number Effective Date Expiration Date Katelyn MELLO MEDICARE [id number] 2020 00:00:00 [place] [id number] 2019 00:00:00 Problems Condition Condition Condition Status Onset Resolution Last Treating Co mments Source Name Details Category Date Date Treatment Clinician Date S/P MVR S/P MVR Disease Active Univers (mitral (mitral 09-29 ity of valve valve 00:00: [place] repair) repair) 00 Medical Branch S/P TVR S/P TVR Disease Active Univers (tricuspid (tricuspid 09-29 it y of valve valve 00:00: [place] repair) repair) 00 Medical Branch Endocardit Endocardit Disease Active U nivers is and is and 09-04 ity of heart heart 00:00: [place] valve valve 00 Medical disorders disorders Bran ch in in diseases diseases classified classified elsewhere elsewhere Insomnia Insomnia Disease Active Unive rs due to due to 09-04 ity of other other 00:00: [place] mental mental 00 Medical disorder disorder Branch Decreased Decreased Disease Active Uni vers activities activities 09-04 it y of of daily of daily 00:00: [place] living living 00 Medical (ADL) (ADL) Branch Dyslipidem Dyslipidem Disease Active U nivers ia ia 09-04 ity of 00:00: 00 Medical Branch Decreased Decreased Disease Active Uni vers appetite appetite 09-04 ity of 00:00: 00 Medical Branch Seizure Seizure Disease Active Univers - ity of 00:00: 00 Medical Branch 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it y 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 00 Medical depressive depressive Br anch disorder, disorder, without without psychotic psychotic features features Generalize Generalize Disease Active U nivers d anxiety d anxiety 6-03 ity of disorder disorder 00:00: [place] 00 [facility] Branch Panic Panic Disease Active Univers attacks attacks 6-03 ity of 00:00: [address] Encounter Encounter Disease Active Uni vers to to 5-27 it[place] of establish establish 00:[place] [facility] Hepatic Hepatic Disease Active Univers cirrhosis, cirrhosis, 5-27 it y of unspecifie unspecifie [place] hepatic [place] hepatic 00 Medi yoel cirrhosis cirrhosis Bran ch type, type, unspecifie unspecifie d whether d whether ascites ascites present present E44.1 Mild E44.1 Mild Disease Active U nivers protein-ca protein-ca 4-05 it y of sadi sadi 00:00: [place] malnutriti malnutriti 00 Me dical on on Branch Hematochez Hematochez Disease Active U nivers ia ia 4-04 ity of 00:00: [address] MV MV Disease Active [facility] Endocardit Endocardit 3-17 [facility] k[facility] is is 00:00: [address] Moderate Moderate Disease [facility] tricuspid tricuspid 3-17 [facility] regurgitat regurgitat 00:00: Me dical ion S/P ion S/P 00 Center Tricuspid Tricuspid valve valve repair repair (Drs. Russo (Drs. Russo and and Preventza Preventza 06/18/2021 06/18/2021 ) ) S/P CABG x S/P CABG x Disease Active [facility] 3 3 3[facility]17 [facility] (BAUER>LAD, (BAUER>LAD, 00:00: Me dical SVG>OM, SVG>OM, 00 Center SVG>PDA, SVG>PDA, 2015) 2015) S/P S/P Disease Active [facility] placement placement 3-17 [facility] of cardiac of cardiac 00:00: Me dical pacemaker pacemaker 00 Cent er (2018) (2018) Pulmonary Pulmonary Disease Active [facility] HTN (HCC), HTN (HCC), 3-17 Felicit[facility] kes PASP 65-70 PASP 65-70 00:00: Me dical 00 Center PFO PFO Disease Active [facility] (patent (patent 3-17 [facility] foramen foramen 00:00: Medical ovale) ovale) 00 Center small small Hypothermi Hypothermi Disease Active [facility] a, acute a, acute 3-17 [facility] post-op post-op 00:00: Medical 00 [place] Acute Acute Disease Active [facility] blood loss blood loss 3-17 [facility] anemia anemia 00:00: Medical 00 [place] Acute Acute Disease Active [facility] postoperat postoperat 3-17 [facility] [facility] cristela pain cristela pain 00:00: Medica l 00 [place] Acute Acute Disease Active [facility] encephalop encephalop 3-12 [facility] [facility] athy athy 00:00: Medical 00 [place] HTN HTN Disease Active [facility] (hypertens (hypertens 3-12 [place] [facility] ion), ion), 00:00: Medical chronic chronic 00 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 [facility] (subarachn (subarachn 3-11 [facility] oid oid 00:00: Medical hemorrhage hemorrhage 00 Ce nter ) ) Streptococ Streptococ Disease Active [facility] cus bovis cus bovis 3-07 [facility] infection infection 00:00: [facility] 00 Center 06/18/21: 06/18/21: Disease Active [facility] MV Repair MV Repair 3-06 [facility] & TV & TV 00:00: Medical Repair Repair 00 [place] (Russo) (Russo) Pulmonary Pulmonary Disease Active Uni vers hypertensi hypertensi 2-13 it y of on on 00:00: [place] 00 Medical Branch Acute on Acute on Disease Active Unive rs chronic chronic 2-13 ity of respirator [place] y failure 00 [facility] with with Branch hypoxia hypoxia ESRD (end ESRD (end Disease Active Uni vers stage stage 2-12 ity of renal renal 00:00: [place] disease) disease) 00 Medica l on on Branch dialysis dialysis Coronary Coronary Disease Active Unive rs artery artery 2-12 ity of disease disease 00:00: [place] involving involving 00 [facility] shish[place]f ira shish[place] ira Branch coronary coronary artery of artery of sh[place] ira shishmaref ira heart with heart with angina angina pectoris [...] insulin insulin Hypertensi Hypertensi Disease Active U nivers on, on, 2-11 ity of unspecifie unspecifie [place] type d type 00 Medical Branch 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 00:00: [place] with with 00 Medical diabetic diabetic Branch polyneurop polyneurop athy, athy, without without long-term long-term current current use of use of insulin insulin Cerebrovas Cerebrovas Disease Active U nivers cular cular 2-11 ity of accident accident 00:00: [place] (CVA), (CVA), 00 Medical unspecifie unspecifie Br anch d d mechanism mechanism ESRD on ESRD on Disease Active Univers dialysis dialysis 2-11 ity of 00:00: [place] Medical Branch Fall on Fall on Disease Active Univers concrete concrete 2-11 ity of 00:00: Medical Branch Acute pain Acute pain Disease Active U nivers of right of right 2-11 ity of knee knee 00:00: 00 Medical Branch Dizziness Dizziness Disease Active Uni vers 2-11 ity of 00:00: [place] 00 Medical Branch Lower leg Lower leg Disease Active Uni vers edema edema 2-11 ity of 00:00: Medical Branch Abnormal Abnormal Disease Active Unive rs EKG EKG 2-11 ity of 00:00: 00 Medical Branch Chest Chest Disease Active Univers pressure pressure 2-11 ity of 00:00: Medical Branch Chest pain Chest pain Disease Active U nivers 2-11 ity of 00:00: 00 Medical Branch Postmenopa Postmenopa Disease Active U nivers usal usal 4-20 ity of bleeding bleeding 00:00: Medical Branch Obesity Obesity Disease Active Univers (BMI (BMI 4-20 ity of 30-39.9) 30-39.9) 00:00: Medical Branch Hematoma Hematoma Disease Active [facility] di 4-18 st 00:00: [facility]osp[facility] 00 l Acute Acute Disease Active [facility] gastroente gastroente 3-20 st ritis ritis 00:00: Hospita 00 l Type 2 Type 2 Disease Active [facility] diabetes diabetes 3-27 st mellitus mellitus 00:00: Hospit a with with 00 l diabetic diabetic chronic chronic kidney kidney disease disease Episode of Problem 2019-02-19 M emoria generalize 22:28:00 l d weakness Episode Her hernandez of generalize d weakness Problem 02/19/[address] [facility] Hyperkalem Problem 2019-02-19 M emoria ia 22:28:00 [place] Hyperkalem ia Problem 02/19/[address] [facility] Elevated Condition 2019-02-19 M emoria brain 22:28:00 l natriureti Elevated He rmann c peptide brain (BNP) natriureti level c peptide (BNP) level Condition 02/19/2019 [facility] Episode of Condition 2019-02-19 Memoria generalize 22:28:00 l d weakness Episode Her hernandez of generalize d weakness Condition 02/19/2019 [facility] Hyperkalem Condition 2019-02-19 Memoria ia 22:28:00 l [place] Hyperkalem ia Condition 02/19/2019 [facility] Hypertensi Condition 2019-02-19 [...] Memor ia respirator 22:28:00 l y [place] infection respirator y infection Problem 02/19/[address] [facility] Elevated Problem 2019-02-19 Mem oria troponin 22:28:00 l level Elevated Freddy n troponin level Problem 02/19/[address] [facility] Wears Wears Disease Active [facility]i glasses glasses st Hospita l Allergies, Adverse Reactions, Alerts Allergy Allergy Status Severity Reaction(s) Onset Inactive Treating Comm ents Source Name Type Date Date Clinician Heparin Propensi Active "won't Methodi ty to 7-[address] adverse 00:00: bleeding" Hospit a reaction 00 l s to drug NO KNOWN Allergy Active [facility] ALLERGIE S NO KNOWN Drug Active Univers ALLERGIE Class ity of S [place] [facility] Family History Family Member Diagnosis Comments Start Date Stop Date Source Natural brother [facility] father Diabetes [facility] mother Diabetes [facility] sister [facility] Social History Social Habit Start Date Stop Date Quantity Comments Source History SDOH [facility] Alcohol Std Drinks History SDOH [facility] Alcohol Binge History SDOH [facility] Alcohol Comment Exposure to 2021-09-19 2021-09-29 Not sure University of SARS-CoV-2 00:00:00 14:42:00 [place] [facility] (event) Branch Tobacco use and 2020-07-24 2020-07-[address] [facility] Felicita kes exposure 00:00:00 00:00:00 Medical Center Social History 2019-02-19 2019-02-19 [facility] sue 22:28:00 22:28:00 Alcohol intake 2018-10-27 2018-10-27 Current [facility] 00:00:00 00:00:00 non-drinker of alcohol (finding) History SDOH 2018-10-26 2018-10-26 1 [facility] spital Alcohol Frequency 00:00:00 00:00:00 [birth year] Universit y of 00:00:00 00:00:00 [facility] Smoking Status Start Date Stop Date Source Unknown if ever smoked [facility] Never smoked tobacco [facility] Medications Ordered Filled Start Stop Current Ordering Indication Dosage Frequency Signature Comments Components Source Medication Medication Date Date Medication? Clinician (SIG) Name Name atorvastati Yes 40mg Take 40 mg Univers n 40 mg 6-28 by mouth ity of tablet 15:14: at [place] 02 bedtime. Medical Branch clopidogreL Yes [id number] 75mg Take 1 Univers 75 mg 6-28 tablet by ity of tablet 00:00: mouth [place] 00 daily. Medical Branch CARVEDILOL Yes 12.5mg Take 12.5 Univers ORAL 6-03 mg by ity of 10:47: mouth 2 [place] 33 (two) Medical times Branch daily. NIFEdipine Yes 10mg Take 10 mg U nivers 10 mg 6-03 by mouth 3 ity of capsule 10:47: (three) [place] 33 times Medical daily. Branch levETIRAcet Yes 500mg Take 500 U nivers am (KEPPRA) 6-03 mg by ity of 500 mg 10:47: mouth at [place] tablet 33 bedtime. Medical Branch levETIRAcet Yes 250mg Take 250 U nivers am (KEPPRA) 6-03 mg by ity of 250 mg 10:47: mouth [place] tablet 33 every Medical Tuesday, Branch Tuesday and Tuesday. After dialysis mirtazapine Yes [id number] 15mg Take 1 Univers (REMERON) 6-03 tablet by ity o f 15 mg 00:00: mouth at [place] tablet 00 bedtime. Medical Branch traZODone Yes [id number] 50mg Take 1 Un kecia 50 mg 6-03 tablet by ity of tablet 00:00: mouth at [place] 00 bedtime. Medical Branch amoxicillin Yes 500mg Take 500 U nivers 500 mg 5-24 mg by ity of capsule 00:00: mouth. Medical Branch hydrALAZINE Yes 50mg Take 50 mg Univers 50 mg 4-08 by mouth. ity of tablet 00:00: [place] 00 Medical Branch levETIRAcet 2021- No 250mg Take [address] am (KEPPRA) 07-06- tablet [facility] 250 MG 00:00: 23:59 (250 mg Medical tablet 00 :00 total) by Center mouth 3 (three) times a week after dialysis TUE/ I for 60 days. levETIRAcet 2021- No 250mg Take [address] am (KEPPRA) 07-06- tablet [facility] 250 MG 00:00: 23:59 (250 mg Medical tablet 00 :00 total) by Center mouth 3 (three) times a week after dialysis TUE/ I for 60 days. levETIRAcet 2021- No 250mg Take [address] am (KEPPRA) 07-06- tablet [facility] 250 MG 00:00: 23:59 (250 mg Medical tablet 00 :00 total) by Center mouth 3 (three) times a week after dialysis TUE/ I for 60 days. multivitami Yes 1{tbl} QD Take [address] n with 4-02 tablet by [facility] minerals 14:35: mouth Medical tablet 35 daily. [place] sucroferric Yes 500mg Q.[id number] Take [address] oxyhydroxid 4-02 [id number] mg by L ukes e 500 mg 14:35: 3D mouth 3 Medica l Chew 35 (three) Center times daily. multivitami Yes 1{tbl} QD Take [address] n with 4-02 tablet by [facility] minerals 14:35: mouth Medical tablet 35 daily. [place] sucroferric Yes 500mg Q.[id number] Take [address] oxyhydroxid 4- [id number] mg by L ukes e 500 mg 14:35: 3D mouth 3 Medica l Chew 35 (three) Center times daily. multivitami Yes 1{tbl} QD Take [address] n with -02 tablet by [facility] minerals 14:35: mouth Medical tablet 35 daily. [place] sucroferric Yes 500mg Q.[id number] Take [address] oxyhydroxid 4- [id number] mg by L ukes e 500 mg 14:35: 3D mouth 3 Medica l Chew 35 (three) Center times daily. aspirin 81 2021- No 81mg QD Take [address] MG EC 07-04 by mouth [facility]ukes tablet 11:07: 00:00 daily. Medical 35 :00 Center carvediloL No 12.5mg Take 12.[address] (COREG) 07-04 mg by [facility]ukes 12.5 MG 11:07: 00:00 mouth 2 Medica l tablet 35 :00 (two) Center times daily with breakfast and dinner. atorvastati 2021- No 40mg QD Take [address] n (LIPITOR) 07-04 by mouth Ned es 40 MG 11:07: 00:00 daily. Medical tablet 35 :00 Center isosorbide 2021- No 30mg QD Take [address] mononitrate 07-04 by mouth Ned es (IMDUR) 30 11:07: 00:00 daily. Medi yoel MG 24 hr 35 :00 Center tablet clopidogreL 2021- No 75mg QD Take [address] [facility] (PLAVIX) 75 07-04 by mouth Ned es mg tablet 11:07: 00:00 daily. Medic al 35 :00 Center NIFEdipine 2021- No 60mg QD Take [address] [facility] (PROCARDIA- 07-04 by mouth Ned es XL) 60 MG 11:07: 00:00 daily. Medic al (OSM) 24 hr 35 :00 Center tablet hydrALAZINE No 50mg Q.[id number] Take [address] [facility] (APRESOLINE 07-04 [id number] by mouth 3 [facility] ) 50 MG 11:07: 00:00 3D (three) Medica l tablet 35 :00 times Center daily. lisinopriL 2021- No 5mg QD Take [address] (PRINIVIL,Z 07-04 by mouth Ned es ESTRIL) 5 11:07: 00:00 daily. Medic al MG tablet 35 :00 Center aspirin 81 2021- No 81mg QD Take [address] MG EC 07-04 by mouth [facility]ukes tablet 11:07: 00:00 daily. Medical 35 :00 Center carvediloL No 12.5mg Take 12.[address] (COREG) 07-0402 mg by [facility] 12.5 MG 11:07: 00:00 mouth 2 Medica l tablet 35 :00 (two) Center times daily with breakfast and dinner. atorvastati No 40mg QD Take [address] [facility] n (LIPITOR) 07-04 by mouth Ned es 40 MG 11:07: 00:00 daily. Medical tablet 35 :00 Center isosorbide No 30mg QD Take [address] mononitrate 07-04 by mouth Ned es (IMDUR) 30 11:07: 00:00 daily. Medi yoel MG 24 hr 35 :00 Center tablet clopidogreL No 75mg QD Take [address] (PLAVIX) 75 07-04 by mouth Ned es mg tablet 11:07: 00:00 daily. Medic al 35 :00 Center NIFEdipine No 60mg QD Take [address] (PROCARDIA- 07-04 by mouth Ned es XL) 60 MG 11:07: 00:00 daily. Medic al (OSM) 24 hr 35 :00 Center tablet hydrALAZINE 2021- No 50mg Q.[id number] Take [address] [facility] (APRESOLINE 07-04 [id number] by mouth 3 [facility] ) 50 MG 11:07: 00:00 3D (three) Medica l tablet 35 :00 times Center daily. lisinopriL 2021- No 5mg QD Take [address] (PRINIVIL,Z 07-04 by mouth Ned es ESTRIL) 5 11:07: 00:00 daily. Medic al MG tablet 35 :00 Center aspirin 81 2021- No 81mg QD Take [address] MG EC 07-04 by mouth [facility] tablet 11:07: 00:00 daily. Medical 35 :00 Center carvediloL No 12.5mg Take 12.[address] (COREG) 07-04 mg by [facility] 12.5 MG 11:07: 00:00 mouth 2 Medica l tablet 35 :00 (two) Center times daily with breakfast and dinner. atorvastati No 40mg QD Take [address] [facility] n (LIPITOR) 07-04 by mouth Ned es 40 MG 11:07: 00:00 daily. Medical tablet 35 :00 Center isosorbide No 30mg QD Take [address] mononitrate 07-04 by mouth Ned es (IMDUR) 30 11:07: 00:00 daily. Medi yoel MG 24 hr 35 :00 Center tablet clopidogreL No 75mg QD Take [address] [facility] (PLAVIX) 75 07-04 by mouth Ned es mg tablet 11:07: 00:00 daily. Medic al 35 :00 Center NIFEdipine No 60mg QD Take [address] [address] (PROCARDIA- 07-04 by mouth Ned es XL) 60 MG 11:07: 00:00 daily. Medic al (OSM) 24 hr 35 :00 Center tablet hydrALAZINE No 50mg Q.[id number] Take [address] [address] (APRESOLINE 07-04 [id number] by mouth 3 [facility] ) 50 MG 11:07: 00:00 3D (three) Medica l tablet 35 :00 times Center daily. lisinopriL No 5mg QD Take [address] (PRINIVIL,Z 07-04 by mouth Ned es ESTRIL) 5 11:07: 00:00 daily. Medic al MG tablet 35 :00 Center cefTRIAXone Yes 2g QD Inject [address] [address] (ROCEPHIN) 07-04 intravenou Ned es 2 g in 00:00: sly daily. Medic al sodium 00 Center chloride 0.9 % (NS) 100 mL (V2B) IVPB cefTRIAXone Yes 2g QD Inject [address] (ROCEPHIN) 07-04 intravenou Ned es 2 g in 00:00: sly daily. Medic al sodium 00 Center chloride 0.9 % (NS) 100 mL (V2B) IVPB cefTRIAXone Yes 2g QD Inject [address] (ROCEPHIN) 07-04 intravenou Ned es 2 g in 00:00: sly daily. Medic al sodium 00 Center chloride 0.9 % (NS) 100 mL (V2B) IVPB atorvastati 2021- No 40mg QD Take [address] n (LIPITOR) 07-04 tablet (40 L ukes 40 MG 00:00: 23:59 mg total) Medica l tablet 00 :00 by mouth Center nightly for 60 days. carvediloL 2021- No 12.5mg Q.5D Take [address] (COREG) 07-04 tablet [facility] 12.5 MG 00:00: 23:59 (12.5 mg Medic al tablet 00 :00 total) by Center mouth 2 (two) times daily for 60 days. hydrALAZINE 2021- No 10mg Take [address] [facility] [address] (APRESOLINE 07-04 tablet (10 L ukes ) 10 MG 00:00: 23:59 mg total) Medi yoel tablet 00 :00 by mouth Center every 8 (eight) hours for 60 days. NIFEdipine 2021- No 20mg Take [address] [facility] [address] (PROCARDIA) 07-04 capsule Luke s 20 MG 00:00: 23:59 (20 mg Medical capsule 00 :00 total) by Center mouth every 8 (eight) hours for 60 days. epoetin 2021- No anemia in 6000U Inject [address] renetta-epbx 07-04 chronic mLs (6,000 [facility] (RETACRIT) 00:00: 23:59 kidney Units Med ical 3,000 00 :00 disease total) Center unit/mL subcutaneo Soln usly 3 injection (three) times a week at bedtime TUE/ALEXANDRA/SA T for 60 days. levETIRAcet 2021- No 500mg QD Take [address] am (KEPPRA) 07-04 tablet [facility] 500 MG 00:00: 23:59 (500 mg Medical tablet 00 :00 total) by Center mouth nightly for 60 days. atorvastati 2021- No 40mg QD Take [address] [facility] n (LIPITOR) 07-04 tablet (40 L ukes 40 MG 00:00: 23:59 mg total) Medica l tablet 00 :00 by mouth Center nightly for 60 days. carvediloL 2021- No 12.5mg Q.5D Take [address] (COREG) 07-04 tablet [facility] 12.5 MG 00:00: 23:59 (12.5 mg Medic al tablet 00 :00 total) by Center mouth 2 (two) times daily for 60 days. hydrALAZINE 2021- No 10mg Take [address] [facility] (APRESOLINE 07-04 tablet (10 L ukes ) 10 MG 00:00: 23:59 mg total) Medi yoel tablet 00 :00 by mouth Center every 8 (eight) hours for 60 days. NIFEdipine 2021- No 20mg Take [address] [facility] [address] (PROCARDIA) 07-04 capsule Luke s 20 MG 00:00: 23:59 (20 mg Medical capsule 00 :00 total) by Center mouth every 8 (eight) hours for 60 days. epoetin 2021-2021- No anemia in 6000U Inject [address] renetta-epbx 07-04 chronic mLs (6,000 [facility] (RETACRIT) 00:00: 23:59 kidney Units Med ical 3,000 00 :00 disease total) Center unit/mL subcutaneo Soln usly 3 injection (three) times a week at bedtime TUE/ALEXANDRA/SA T for 60 days. levETIRAcet 2021- No 500mg QD Take [address] am (KEPPRA) 07-04 tablet [facility] 500 MG 00:00: 23:59 (500 mg Medical tablet 00 :00 total) by Center mouth nightly for 60 days. atorvastati 2021- No 40mg QD Take [address] [facility] [address] n (LIPITOR) 07-04 tablet (40 L ukes 40 MG 00:00: 23:59 mg total) Medica l tablet 00 :00 by mouth Center nightly for 60 days. carvediloL 2021- No 12.5mg Q.5D Take [address] (COREG) 07-04 tablet [facility] 12.5 MG 00:00: 23:59 (12.5 mg Medic al tablet 00 :00 total) by Center mouth 2 (two) times daily for 60 days. hydrALAZINE 2021- No 10mg Take [address] [facility] (APRESOLINE 07-04 tablet (10 L ukes ) 10 MG 00:00: 23:59 mg total) Medi yoel tablet 00 :00 by mouth Center every 8 (eight) hours for 60 days. NIFEdipine 2021- No 20mg Take [address] [facility] [address] (PROCARDIA) 07-04 capsule Luke s 20 MG 00:00: 23:59 (20 mg Medical capsule 00 :00 total) by Center mouth every 8 (eight) hours for 60 days. epoetin 2021- No anemia in 6000U Inject [address] renetta-epbx 07-04 chronic mLs (6,000 [facility] (RETACRIT) 00:00: 23:59 kidney Units Med ical 3,000 00 :00 disease total) Center unit/mL subcutaneo Soln usly 3 injection (three) times a week at bedtime TUE/ALEXANDRA/SA T for 60 days. levETIRAcet 2021- No 500mg QD Take [address] am (KEPPRA) 07-04 tablet [facility] 500 MG 00:00: 23:59 (500 mg Medical tablet 00 :00 total) by Center mouth nightly for 60 days. insulin 2021- No Use as [facility] regular 07-04 directed. [facility] (HumuLIN 00:00: 00:00 Medical R,NovoLIN 00 :00 Center R) 100 unit/mL injection insulin 2021- No Use as [facility] regular 07-04 directed. [facility] (HumuLIN 00:00: 00:00 Medical R,NovoLIN 00 :00 Center R) 100 unit/mL injection insulin 2021- No Use as [facility] regular 07-04 directed. [facility] (HumuLIN 00:00: 00:00 Medical R,NovoLIN 00 :00 Center R) 100 unit/mL injection insulin 2021- No Use as [facility] regular 07-04 directed. [facility] (HumuLIN 00:00: 00:00 Medical R,NovoLIN 00 :00 Center R) 100 unit/mL injection insulin 2021- No Use as [facility] regular 07-04 directed. [facility] (HumuLIN 00:00: 00:00 Medical R,NovoLIN 00 :00 Center R) 100 unit/mL injection insulin 2021- No Use as [facility] regular 07-04 directed. [facility] (HumuLIN 00:00: 00:00 Medical R,NovoLIN 00 :00 Center R) 100 unit/mL injection atorvastati Yes 40mg QD Take [address] [facility] n (LIPITOR) 07-03 by mouth Luke s 40 MG 13:18: daily. Medical tablet 59 Center isosorbide Yes 30mg QD Take [address] mononitrate 07-03 by mouth Luke s (IMDUR) 30 13:18: daily. Medic al MG 24 hr 59 Center tablet clopidogreL Yes 75mg QD Take [address] [facility] [address] (PLAVIX) 75 07-03 by mouth Luke s mg tablet 13:18: daily. Medica l 59 Center NIFEdipine Yes 60mg QD Take [address] (PROCARDIA- 07-03 by mouth Luke s XL) 60 MG 13:18: daily. Medica l (OSM) 24 hr 59 Center tablet hydrALAZINE Yes 50mg Q.[id number] Take [address] [facility] (APRESOLINE 4-01 [id number] by mouth 3 [facility] ) 50 MG 13:18: 3D (three) Medical tablet 59 times Center daily. multivitami Yes 1{tbl} QD Take [address] n with 4-01 tablet by [facility] minerals 13:18: mouth Medical tablet 59 daily. Center lisinopriL Yes 5mg QD Take [address] (PRINIVIL,Z 4-01 by mouth Luke s ESTRIL) 5 13:18: daily. Medica l MG tablet 59 Center sucroferric Yes 500mg Q.[id number] Take [address] oxyhydroxid 4-01 [id number] mg by L ukes e 500 mg 13:18: 3D mouth 3 Medica l Chew 59 (three) Center times daily. atorvastati Yes 40mg QD Take [address] [facility] n (LIPITOR) 3-30 by mouth Luke s 40 MG 12:54: daily. Medical tablet 15 Center isosorbide Yes 30mg QD Take [address] mononitrate 3-30 by mouth Luke s (IMDUR) 30 12:54: daily. Medic al MG 24 hr 15 Center tablet clopidogreL Yes 75mg QD Take [address] (PLAVIX) 75 3-30 by mouth [facility] mg tablet 12:54: daily. Medica l 15 Center NIFEdipine Yes 60mg QD Take [address] [facility] (PROCARDIA- 3-30 by mouth [facility] XL) 60 MG 12:54: daily. Medica l (OSM) 24 hr 15 Center tablet hydrALAZINE Yes 50mg Q.[id number] Take [address] [facility] (APRESOLINE 3-30 [id number] by [facility] 3 [facility] ) 50 MG 12:54: 3D (three) Medical tablet 15 times Center daily. multivitami 0 Yes 1{tbl} QD Take [address] [facility] with 3-30 tablet by [facility] 12:54: mouth Medical tablet 15 daily. Center lisinopriL Yes 5mg QD Take [address] [facility] [address] [facility] (PRINIVIL,Z 3-30 by mouth [facility] ESTRIL) 5 12:54: daily. Medica l MG tablet 15 Center sucroferric 0 Yes 500mg Q.[id number] Take [address] [facility] oxyhydroxid 3-30 [id number] mg by L ukes e 500 mg 12:54: 3D mouth 3 Medica l Chew 15 (three) Center times daily. atorvastati 0 Yes 40mg QD Take [address] [facility] n (LIPITOR) 3-30 by mouth [facility] 40 MG 12:54: daily. Medical tablet 15 Center isosorbide 0 Yes 30mg QD Take [address] mononitrate 3-30 by mouth [facility] (IMDUR) 30 12:54: daily. Medic al MG 24 hr 15 Center tablet clopidogreL 0 Yes 75mg QD Take [address] [facility] (PLAVIX) 75 3-30 by mouth [facility] mg tablet 12:54: daily. Medica l 15 Center NIFEdipine 0 Yes 60mg QD Take [address] (PROCARDIA- 3-30 by mouth [facility] XL) 60 MG 12:54: daily. Medica l (OSM) 24 hr 15 Center tablet hydrALAZINE Yes 50mg Q.[id number] Take [address] [facility] (APRESOLINE 3-30 [id number] by mouth 3 [facility] ) 50 MG 12:54: 3D (three) Medical tablet 15 times Center daily. multivitami 0 Yes 1{tbl} QD Take [address] [facility] with 3-30 tablet by [facility] 12:54: mouth Medical tablet 15 daily. [place] lisinopriL 0 Yes 5mg QD Take [address] [facility] [address] [facility] (PRINIVIL,Z 3-30 by mouth [facility] ESTRIL) 5 12:54: daily. Medica l MG tablet 15 Center sucroferric 0 Yes 500mg Q.[id number] Take [address] [facility] [address] oxyhydroxid 3-30 [id number] mg by L [facility] e 500 mg 12:54: 3D mouth 3 Medica l Chew 15 (three) Center times daily. atorvastati 0 Yes 40mg QD Take [address] [facility] n (LIPITOR) 3-30 by mouth [facility] 40 MG 08:40: daily. Medical tablet 18 Center isosorbide 0 Yes 30mg QD Take [address] mononitrate 3-30 by mouth [facility] (IMDUR) 30 08:40: daily. Medic al MG 24 hr 18 Center tablet clopidogreL 2021-0 Yes 75mg QD Take [address] [facility] (PLAVIX) 75 3-30 by mouth [facility] mg tablet 08:40: daily. Medica l 18 Center NIFEdipine 0 Yes 60mg QD Take [address] (PROCARDIA- 3-30 by mouth [facility] XL) 60 MG 08:40: daily. Medica l (OSM) 24 hr 18 Center tablet hydrALAZINE 0 Yes 50mg Q.[id number] Take [address] [facility] (APRESOLINE 3-30 [id number] by mouth 3 [facility] ) 50 MG 08:40: 3D (three) Medical tablet 18 times Center daily. multivitami 0 Yes 1{tbl} QD Take [address] [facility] with 3-30 tablet by [facility] 08:40: mouth Medical tablet 18 daily. [place] lisinopriL 0 Yes 5mg QD Take [address] [facility] [address] [facility] (PRINIVIL,Z 3-30 by mouth [facility] ESTRIL) 5 08:40: daily. Medica l MG tablet 18 Center sucroferric Yes 500mg Q.[id number] Take [address] [facility] [address] oxyhydroxid 3-30 [id number] mg by L ukes e 500 mg 08:40: 3D mouth 3 Medica l Chew 18 (three) Center times daily. atorvastati 0 Yes 40mg QD Take [address] [facility] n (LIPITOR) 3-28 by mouth [facility] 40 MG 14:25: daily. Medical tablet 01 Center isosorbide 0 Yes 30mg QD Take [address] mononitrate 3-28 by mouth [facility] (IMDUR) 30 14:25: daily. Medic al MG 24 hr 01 Center tablet clopidogreL 2021-0 Yes 75mg QD Take [address] [facility] (PLAVIX) 75 3-28 by mouth [facility] mg tablet 14:25: daily. Medica l 01 Center NIFEdipine 0 Yes 60mg QD Take [address] [facility] (PROCARDIA- 3-28 by mouth [facility] XL) 60 MG 14:25: daily. Medica l (OSM) 24 hr 01 Center tablet hydrALAZINE Yes 50mg Q.[id number] Take [address] [facility] (APRESOLINE 3-28 [id number] by mouth 3 [facility] ) 50 MG 14:25: 3D (three) Medical tablet 01 times Center daily. multivitami Yes 1{tbl} QD Take [address] [facility] with 3-28 tablet by [facility] 14:25: mouth Medical tablet 01 daily. Center lisinopriL Yes 5mg QD Take [address] [facility] [address] [facility] (PRINIVIL,Z 3-28 by mouth [facility] ESTRIL) 5 14:25: daily. Medica l MG tablet 01 Center sucroferric Yes 500mg Q.[id number] Take [address] oxyhydroxid - [id number] mg by L [facility] e 500 mg 14:25: 3D mouth 3 Medica l Chew 01 (three) Center times daily. atorvastati Yes 40mg QD Take [address] [facility] n (LIPITOR) 3-28 by mouth [facility] 40 MG 09:34: daily. Medical tablet 22 Center isosorbide Yes 30mg QD Take [address] mononitrate 3-28 by mouth [facility] (IMDUR) 30 09:34: daily. Medic al MG 24 hr 22 Center tablet clopidogreL Yes 75mg QD Take [address] [facility] (PLAVIX) 75 3-28 by mouth [facility] mg tablet 09:34: daily. Medica l 22 Center NIFEdipine Yes 60mg QD Take [address] (PROCARDIA- 3-28 by mouth [facility] XL) 60 MG 09:34: daily. Medica l (OSM) 24 hr 22 Center tablet hydrALAZINE Yes 50mg Q.[id number] Take [address] [facility] (APRESOLINE 3-28 [id number] by mouth 3 [facility] ) 50 MG 09:34: 3D (three) Medical tablet 22 times Center daily. multivitami Yes 1{tbl} QD Take [address] [facility] with 3-28 tablet by [facility] 09:34: mouth Medical tablet 22 daily. Center lisinopriL 0 Yes 5mg QD Take [address] [facility] [address] [facility] (PRINIVIL,Z 3-28 by mouth [facility] ESTRIL) 5 09:34: daily. Medica l MG tablet 22 Center sucroferric 0 Yes 500mg Q.[id number] Take [address] oxyhydroxid 3-28 [id number] mg by L [facility] e 500 mg 09:34: 3D mouth 3 Medica l Chew 22 (three) Center times daily. atorvastati 0 Yes 40mg QD Take [address] [facility] n (LIPITOR) 3-25 by mouth [facility] 40 MG 20:31: daily. Medical tablet 49 Center isosorbide 0 Yes 30mg QD Take [address] mononitrate 3-25 by mouth [facility] (IMDUR) 30 20:31: daily. Medic al MG 24 hr 49 Center tablet clopidogreL 0 Yes 75mg QD Take [address] [facility] (PLAVIX) 75 3-25 by mouth [facility] mg tablet 20:31: daily. Medica l 49 Center NIFEdipine 0 Yes 60mg QD Take [address] (PROCARDIA- 3-25 by mouth [facility] XL) 60 MG 20:31: daily. Medica l (OSM) 24 hr 49 Center tablet hydrALAZINE 0 Yes 50mg Q.[id number] Take [address] [facility] (APRESOLINE 3-25 [id number] by mouth 3 [facility] ) 50 MG 20:31: 3D (three) Medical tablet 49 times Center daily. multivitami 0 Yes 1{tbl} QD Take [address] [facility] with 3-25 tablet by [facility] 20:31: mouth Medical tablet 49 daily. Center lisinopriL 0 Yes 5mg QD Take [address] [facility] [address] [facility] (PRINIVIL,Z 3-25 by mouth [facility] ESTRIL) 5 20:31: daily. Medica l MG tablet 49 Center sucroferric 0 Yes 500mg Q.01600638 Take [address] oxyhydroxid 3-25 [id number] mg by L [facility]kes e 500 mg 20:31: 3D mouth 3 Medica l Chew 49 (three) Center times daily. isosorbide 2021-0 Yes 30mg QD Take [address] mononitrate 3-20 by mouth [facility] (IMDUR) 30 18:09: daily. Medic al MG 24 hr 15 Center tablet clopidogreL 2021-0 Yes 75mg QD Take [address] [facility] (PLAVIX) 75 3-20 by mouth [facility] mg tablet 18:09: daily. Medica l 15 Center NIFEdipine 0 Yes 60mg QD Take [address] (PROCARDIA- 3-20 by mouth [facility] XL) 60 MG 18:09: daily. Medica l (OSM) 24 hr 15 Center tablet hydrALAZINE 0 Yes 50mg Q.[id number] Take [address] [facility] (APRESOLINE 3-20 [id number] by mouth 3 [facility] ) 50 MG 18:09: 3D (three) Medical tablet 15 times Center daily. multivitami 2021-0 Yes 1{tbl} QD Take [address] [facility] with 3-20 tablet by [facility] 18:09: mouth Medical tablet 15 daily. Center lisinopriL 0 Yes 5mg QD Take [address] [facility] [address] [facility] (PRINIVIL,Z 3-20 by mouth [facility] ESTRIL) 5 18:09: daily. Medica l MG tablet 15 Center sucroferric 0 Yes 500mg Q.[id number] Take [address] oxyhydroxid 3-20 [id number] mg by L [facility] e 500 mg 18:09: 3D mouth 3 Medica l Chew 15 (three) Center times daily. atorvastati 0 Yes 40mg QD Take [address] [facility] n (LIPITOR) 3-20 by mouth [facility] 40 MG 18:09: daily. Medical tablet 15 Center isosorbide 0 Yes 30mg QD Take [address] mononitrate 3-20 by mouth [facility] (IMDUR) 30 18:09: daily. Medic al MG 24 hr 15 Center tablet clopidogreL 2021-0 Yes 75mg QD Take [address] [facility] (PLAVIX) 75 3-20 by mouth [facility] mg tablet 18:09: daily. Medica l 15 Center NIFEdipine 2021-0 Yes 60mg QD Take [address] (PROCARDIA- 3-20 by mouth [facility] XL) 60 MG 18:09: daily. Medica l (OSM) 24 hr 15 Center tablet hydrALAZINE Yes 50mg Q.[id number] Take [address] [facility] (APRESOLINE 3-20 [id number] by mouth 3 [facility] ) 50 MG 18:09: 3D (three) Medical tablet 15 times Center daily. multivitami Yes 1{tbl} QD Take [address] [facility] with 3-20 tablet by [facility] 18:09: mouth Medical tablet 15 daily. [place] lisinopriL Yes 5mg QD Take [address] [facility] [address] [facility] (PRINIVIL,Z 3-20 by mouth [facility] ESTRIL) 5 18:09: daily. Medica l MG tablet 15 [place] sucroferric Yes 500mg Q.25630294 Take [address] oxyhydroxid 3-20 [id number] mg by L [facility] e 500 mg 18:09: 3D mouth 3 Medica l Chew 15 (three) Center times daily. atorvastati Yes 40mg QD Take [address] [facility] (LIPITOR) 3-20 by mouth [facility] 40 MG 18:09: daily. Medical tablet 15 [place] aspirin 81 0 Yes 81mg QD Take [address] MG EC 3-07 by mouth [facility] tablet 04:45: daily. [address] carvediloL Yes 12.5mg Take 12.[address] [facility] [address] (COREG) 3-07 mg by [facility] 12.5 MG 04:45: mouth 2 Medical tablet 04 (two) Center times daily with breakfast and dinner. aspirin 81 0 Yes 81mg QD Take [address] MG EC 3-07 by mouth [facility] tablet 04:45: daily. [address] carvediloL Yes 12.5mg Take 12.[address] [facility] [address] (COREG) 3-07 mg by [facility] 12.5 MG 04:45: mouth 2 Medical tablet 04 (two) Center times daily with breakfast and dinner. aspirin 81 2021-0 Yes 81mg QD Take [address] MG EC 3-07 by mouth [facility] tablet 04:45: daily. [address] carvediloL Yes 12.5mg Take 12.[address] [facility] [address] (COREG) 3-07 mg by [facility] 12.5 MG 04:45: mouth 2 Medical tablet 04 (two) Center times daily with breakfast and dinner. aspirin 81 0 Yes 81mg QD Take [address] MG EC 3-07 by mouth [facility] tablet 04:45: daily. [address] carvediloL Yes 12.5mg Take 12.[address] [address] (COREG) 3-07 mg by [facility] 12.5 MG 04:45: mouth 2 Medical tablet 04 (two) Center times daily with breakfast and dinner. aspirin 81 0 Yes 81mg QD Take [address] MG EC 3-07 by mouth [facility] tablet 04:45: daily. [address] carvediloL Yes 12.5mg Take 12.[address] [address] (COREG) 3-07 mg by [facility] 12.5 MG 04:45: mouth 2 Medical tablet 04 (two) Center times daily with breakfast and dinner. aspirin 81 0 Yes 81mg QD Take [address] MG EC 3-07 by mouth [facility] tablet 04:45: daily. [address] carvediloL Yes 12.5mg Take 12.[address] [address] (COREG) 3-07 mg by [facility] 12.5 MG 04:45: mouth 2 Medical tablet 04 (two) Center times daily with breakfast and dinner. aspirin 81 0 Yes 81mg QD Take [address] MG EC 3-07 by mouth [facility] tablet 04:45: daily. [address] carvediloL 0 Yes 12.5mg Take 12.[address] [address] (COREG) 3-07 mg by [facility] 12.5 MG 04:45: mouth 2 Medical tablet 04 (two) Center times daily with breakfast and dinner. aspirin 81 2021-0 Yes 81mg QD Take [address] MG EC 3-07 by mouth [facility] tablet 04:45: daily. [address] carvediloL 0 Yes 12.5mg Take 12.[address] [facility] [address] (COREG) 3-07 mg by [facility] 12.5 MG 04:45: mouth 2 Medical tablet 04 (two) Center times daily with breakfast and dinner. aspirin 81 2021-0 Yes 81mg QD Take [address] MG EC 3-07 by mouth [facility] tablet 04:45: daily. Medical 04 Center carvediloL Yes 12.5mg Take 12.[address] [facility] [address] (COREG) 3-07 mg by [facility] 12.5 MG 04:45: mouth 2 Medical tablet 04 (two) Center times daily with breakfast and dinner. aspirin 81 2021- No [id number] 81mg Take 1 [facility] mg chewable 05-23 tablet by it y of tablet 00:00: 04:59 mouth [place] 00 :00 daily for Medical 30 days. Branch clopidogreL 2021- No [id number] 75mg Take 1 [facility] 75 mg 05-23 tablet by ity of tablet 00:00: 04:59 mouth [place] 00 :00 daily for Medical 30 days. Branch isosorbide 2021- No [id number] 30mg Take 1 [facility] mononitrate 05-23 tablet by it y of 30 mg 24 hr 00:00: 04:59 mouth [place] tablet 00 :00 daily for Medical 30 days. Branch lisinopriL 2021- No [id number] 5mg Take 1 [facility] 5 mg tablet 05-23 tablet by it y of 00:00: 04:59 mouth [place] 00 :00 daily for Medical 30 days. Branch vitamin b 2021- No [id number] 1{tbl} Take 1 [facility] complex-vit 05-23 tablet by it y of [place] 00:00: 04:59 mouth [place] c-folic 00 :00 daily for Medical acid 0.8 mg 30 days. Bran ch tablet aspirin 81 2021- No [id number] 81mg Take 1 [facility] mg chewable 05-23 tablet by it y of tablet 00:00: 04:59 mouth [place] 00 :00 daily for Medical 30 days. Branch clopidogreL 2021- No [id number] 75mg Take 1 [facility] 75 mg 05-23 tablet by ity of tablet 00:00: 04:59 mouth [place] 00 :00 daily for Medical 30 days. Branch isosorbide 2021- No [id number] 30mg Take 1 [facility] mononitrate 05-23 tablet by it y of 30 mg 24 hr 00:00: 04:59 mouth [place] tablet 00 :00 daily for Medical 30 days. Branch lisinopriL 2021- No [id number] 5mg Take 1 [facility] 5 mg tablet 05-23 tablet by it y of 00:00: 04:59 mouth [place] 00 :00 daily for Medical 30 days. Branch vitamin b 2021- No [id number] 1{tbl} Take 1 [facility] complex-vit 05-23 tablet by it y of [place] 00:00: 04:59 mouth [place] c-folic 00 :00 daily for Medical acid 0.8 mg 30 days. Bran ch tablet aspirin 81 2021- No [id number] 81mg Take 1 [facility] mg chewable 05-23 tablet by it y of tablet 00:00: 04:59 mouth [place] 00 :00 daily for Medical 30 days. Branch clopidogreL 2021- No [id number] 75mg Take 1 [facility] 75 mg 05-23 tablet by ity of tablet 00:00: 04:59 mouth [place] 00 :00 daily for Medical 30 days. Branch isosorbide 2021- No [id number] 30mg Take 1 [facility] mononitrate 05-23 tablet by it y of 30 mg 24 hr 00:00: 04:59 mouth [place] tablet 00 :00 daily for Medical 30 days. Branch lisinopriL 2021- No [id number] 5mg Take 1 [facility] 5 mg tablet 05-23 tablet by it y of 00:00: 04:59 mouth [place] 00 :00 daily for Medical 30 days. Branch vitamin b 2021- No [id number] 1{tbl} Take 1 [facility] complex-vit 05-23 tablet [...] 2-18 02-18 mouth. ity of 17:12: 00:00 [place] 42 :00 Medical Branch aspirin 81 2021- No 81mg Take 81 mg [facility] mg chewable 05-22 by mouth ity of tablet 17:12: 00:00 daily. [place] 42 :00 Medical Branch nitroglycer Yes [id number] .4mg Place 1 [facility] in 0.4 mg 2-18 tablet ity of sublingual 00:00: under the [place] tablet 00 tongue Medical every 5 Branch (five) minutes as needed for Chest pain. nitroglycer Yes [id number] .4mg Place 1 [facility] in 0.4 mg 2-18 tablet ity of sublingual 00:00: under the [place] tablet 00 tongue Medical every 5 Branch (five) minutes as needed for Chest pain. nitroglycer Yes [id number] .4mg Place 1 [facility] in 0.4 mg 2-18 tablet ity of sublingual 00:00: under the [place] tablet 00 tongue Medical every 5 Branch (five) minutes as needed for Chest pain. atorvastati 2021- No [id number] 40mg Take 1 [facility] n 40 mg 2-18 06-22 tablet by ity of tablet 00:00: 04:59 mouth at [place] 00 :00 bedtime Medical for 30 Branch days. carvediloL 2021- No [id number] 6.25mg Take 1 [facility] 6.25 mg 2-18 03- tablet by ity of tablet 00:00: 04:59 mouth 2 [place] 00 :00 (two) Medical times Branch daily with meals for 30 days. NIFEdipine 2021- No [id number] 60mg Take 1 [facility] ER 60 mg 05-22- tablet by ity o f tablet 00:00: 04:59 mouth 2 [place] 00 :00 (two) Medical times Branch daily for 30 days. atorvastati 2021- No [id number] 40mg Take 1 [facility] n 40 mg 05-22- tablet by ity of tablet 00:00: 04:59 mouth at [place] 00 :00 bedtime Medical for 30 Branch days. carvediloL 2021- No [id number] 6.25mg Take 1 [facility] 6.25 mg 05-22- tablet by ity of tablet 00:00: 04:59 mouth 2 [place] 00 :00 (two) Medical times Branch daily with meals for 30 days. NIFEdipine 2021- No [id number] 60mg Take 1 [facility] ER 60 mg 05-22- tablet by ity o f tablet 00:00: 04:59 mouth 2 [place] 00 :00 (two) Medical times Branch daily for 30 days. atorvastati 2021- No [id number] 40mg Take 1 [facility] n 40 mg 05-22 tablet by ity of tablet 00:00: 04:59 mouth at [place] 00 :00 bedtime Medical for 30 Branch days. carvediloL 2021- No [id number] 6.25mg Take 1 [facility] 6.25 mg 05-22- tablet by ity of tablet 00:00: 04:59 mouth 2 [place] 00 :00 (two) Medical times Branch daily with meals for 30 days. NIFEdipine 2021- No [id number] 60mg Take 1 [facility] ER 60 mg 05-22- tablet by ity o f tablet 00:00: 04:59 mouth 2 [place] 00 :00 (two) Medical times Branch daily for 30 days. clopidogreL Yes 75mg 75 mg, Univ ers (PLAVIX) 2-17 Oral, ity of tablet 75 15:00: DAILY, [place] mg 00 First dose Medical (after Branch last modificati on) on [facility] 05/21/21 at 0900, Until Discontinu ed, Routine morpHINE 2021- No 2mg 2 mg, Slow Un kecia injection 2 05-21 IV Push, ity of mg 13:30: 12:29 ONCE, 1 [place] 00 :00 dose, On [facility] 05/21/21 at 0730, Routine HYDROcodone 2021- No 1{tbl} 1 tablet, Univers -acetaminop 05-21 Oral, ity of hen (NORCO 01:00: 00:17 ONCE, 1 [place] as 5) 5-325 mg 00 :00 dose, On Medi yoel tablet 1 Tue [place] tablet 05/20/21 at 1900, Routine isosorbide Yes 30mg 30 mg, Unive rs mononitrate 2-16 Oral, ity of (IMDUR) 24 15:00: DAILY, [place] hr tablet 00 First dose Medi yoel 30 mg on Tue [place] 05/20/21 at 0900, Until Discontinu ed, Routine vitamin b Yes [id number] 1{tbl} 1 tablet, [facility] complex-vit -16 Oral, ity of miller 15:00: DAILY, [place] c-folic 00 First dose Medica l acid on Tue [place] (NEPHRO-VIT 05/20/21 at E) 0.8 mg 0900, tablet 1 Until tablet Discontinu ed, Routine clopidogreL 2021- No 75mg 75 mg, Uni vers (PLAVIX) 05-20-16 Oral, ity of tablet 75 15:00: 15:04 DAILY, [place] mg 00 :38 First dose Medical on [facility] 05/20/21 at 0900, Until Discontinu ed, Routine atorvastati Yes [id number] 40mg 40 mg, Univers n (LIPITOR) 2-16 Oral, QHS, it y of tablet 40 03:00: First dose [place] mg 00 on [facility] 05/19/21 at Branch 2100, Until Discontinu ed, Routine NIFEdipine 0 Yes [id number] 60mg 60 mg, U nivers ER tablet 2-16 Oral, BID, ity of 60 mg 02:00: First dose [place] 00 (after Medical last Branch modificati on) on Tue05/19/21 at 2000, Until Discontinu ed, Routine lisinopriL Yes [id number] 5mg 5 mg, Un kecia (PRINIVIL,Z 2-15 Oral, ity of ESTRIL) 20:45: DAILY, [place] tablet 5 mg 00 First dose Me dical on [facility] Branch 05/19/21 at 1445, Until Discontinu ed, Routine traMADoL Yes 50mg 50 mg, Univers (ULTRAM) 2-12 Oral, ity of tablet 50 21:59: Q6HPRN, [place] mg 37 Starting Medical on [facility] Branch 05/16/21 at 1559, Until Discontinu ed, Routine, Pain (scale 4-6) aspirin Yes 81mg 81 mg, Univers chewable 2-12 Oral, ity of tablet 81 15:00: DAILY, [place] mg 00 First dose Medical on [facility] 05/16/21 at 0900, Until Discontinu ed, Routine NIFEdipine No 60mg 60 mg, Univ ers ER tablet 12 02-15 Oral, ity of 60 mg 15:00: 20:33 DAILY, [place] 00 :49 First dose Medical on [facility] 05/16/21 at 0900, Until Discontinu ed, Routine Sliding 0 Yes Subcutaneo Univ ers Scale 2-12 us, AC, ity of Insulin-Reg 13:30: First dose [place] ular + Fsbg 00 on [facility] Medica l Testing 05/16/21 at Branch 0730, Until Discontinu ed, Routine hydralAZINE Yes 10mg 10 mg, Univ ers (APRESOLINE 2-12 Slow IV ity o f ) injection 05:36: Push, [place] 10 mg 44 Q4HPRN, Medical Starting Branch on Tue05/15/21 at 2336, Until Discontinu ed, Routine, DBP=>10 0; SBP=>160, DBP=>100; SBP=>180<b r>Indicati on: Hypertensi ve Emergency glucagon 0 Yes 1mg 1 mg, Univers (GLUCAGEN 2-12 Intramuscu ity of DIAGNOSTIC 05:30: lar, PRN, [place] KIT) 08 Starting Medical injection 1 on Tue Branch mg 05/15/21 at 2330, Until Discontinu ed, MATTHEW, Blood Glucose < or = 70 mg/dL and patient is unable to swallow or has mental changes. dextrose 50 2021-0 Yes 25mL 25 mL, Univ ers % in water 2-12 Slow IV ity of (D50W) 05:30: Push, PRN, [place] injection 08 Starting Medica l 25 mL on Fri Branch 05/15/21 at 2330, Until Discontinu ed, MATTHEW, Blood Glucose < or = 70 mg/dL and patient is unable to swallow or has mental status changes. heparin 2021-0 Yes 5000U 5,000 [facility] (porcine) 2-12 Units, [...] 05/15/21 at 1900, Until Discontinu ed, Routine
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 member approving Restricted medication : WILLIAM NEIL aspirin 0 2021- No 325mg 325 mg, Unive rs tablet 325 12 02-12 Oral, ity of mg 01:00: 01:57 ONCE, 1 [place] 00 :00 dose, On Medical Fri Branch 05/15/21 at 1900, Routine nitroglycer 0 Yes .4mg 0.4 mg, Uni vers in 2-12 Sublingual ity of (NITROSTAT) 00:57: , Q5MIN [place] as sublingual 18 PRN, Medical tablet 0.4 Starting Branc h mg on Tue05/15/21 at 1857, Until Discontinu ed, Routine, Chest pain ondansetron 2021-0 Yes 4mg 4 mg, Slow [facility] (ZOFRAN 2-12 IV Push, ity of (PF)) 00:56: Q6HPRN, [place] injection 4 53 Starting Medi yoel mg on Fri Branch 05/15/21 at 1856, Until Discontinu ed, Routine, Nausea and Vomiting (N/V) acetaminoph 2021-0 Yes 650mg 650 mg, Un kecia en 212 Oral, ity of (TYLENOL) 00:56: Q6HPRN, [place] tablet 650 38 Starting Medic al mg on Fri Branch 05/15/21 at 1856, Until Discontinu ed, Routine, Pain (scale 1-3), Temp > 38.5 C ondansetron 0 2021- No 4mg 4 mg, Slow [facility] (ZOFRAN 05-15 IV Push, ity of (PF)) 23:30: 22:34 ONCE, 1 [place] injection 4 00 :00 dose, On Medi yoel mg Fri Branch 05/15/21 at 1730, MATTHEW morpHINE 2021- No 4mg 4 mg, Slow Un kecia injection 4 05-15 IV Push, ity of mg 23:30: 22:34 ONCE, 1 [place] 00 :00 dose, On Medical Fri Branch 05/15/21 at 1730, STAT iopamidol 2021- No [id number] 100mL 100 mL, Univers (ISOVUE 05-15 Intravenou ity o f 370-500 mL) 22:00: 22:00 s, ONCE, 1 [place] injection 00 :00 dose, On Medica l 100 mL Fri Branch 05/15/21 at 1600, Routine aspirin 81 Yes 81mg QD Take [address] MG EC 5-27 by mouth [facility] tablet 15:07: daily. [address] carvediloL Yes 12.5mg Take 12.[address] [facility] (COREG) 5-27 mg by [facility] 12.5 MG 15:07: mouth 2 Medical tablet 20 (two) Center times daily with breakfast and dinner. aspirin 81 0 Yes 81mg QD Take [address] MG EC 5-27 by mouth [facility] tablet 15:07: daily. [address] carvediloL Yes 12.5mg Take 12.[address] [facility] (COREG) 5-27 mg by [facility] 12.5 MG 15:07: mouth 2 Medical tablet 20 (two) Center times daily with breakfast and dinner. Albuterol 2018-04 Yes [facility] Sulfate 1-17 l 19:50: [place] Hydralazine 2018-04 Yes [facility] a 1-17 l 19:50: [place] 00 Aspirin 2018-04 Yes [facility] Chewable 1-17 l [...] Yes [facility] a e 1-17 l 19:15: ergocalcife Yes [id number] Q7D Take Meth ale rol 7-25 50,000 [...] MG 24 hr 42 l tablet ergocalcife Yes [id number] Q7D Take Meth ale rol 7-25 50,000 st (VITAMIN 15:19: Units by Hospi ta D2) 50,000 42 mouth once l unit a week. capsule multivitami 2019-0 Yes 1{tbl} QD Take 1 Me thodi n 7-[address] (DAILY-LARON 15:19: mouth Hospi ta ORAL) 42 daily. l doxazosin 2019-0 Yes 4mg Q.5D Take 4 mg Met hodi (CARDURA) 4 7-[address] MG tablet 15:19: (two) Hospita 42 times a l day. atorvastati 2019-0 Yes 40mg QD Take 40 mg Methodi n (LIPITOR) 7-[address] 40 MG 15:19: daily. Hospita tablet 42 l pantoprazol 2019-0 Yes 40mg QD Take 40 mg Methodi e 7-[address] (PROTONIX) 15:19: daily. Hospi ta 40 MG EC 42 l tablet isosorbide 2019-0 Yes 30mg QD Take 30 mg M ethodi mononitrate 7-[address] (IMDUR) 30 15:19: daily. Hospi ta MG 24 hr 42 l tablet ergocalcife 2019-0 Yes [id number] Q7D Take Meth ale rol 7-25 50,000 [address] (VITAMIN 15:19: Units by Hospi ta D2) 50,000 42 mouth once l unit a week. capsule multivitami 2019-0 Yes 1{tbl} QD Take 1 Me thodi n 7-[address] (DAILY-LARON 15:19: mouth Hospi ta ORAL) 42 daily. l doxazosin 2019-0 Yes 4mg Q.5D Take 4 mg Met hodi (CARDURA) 4 7-[address] MG tablet 15:19: (two) Hospita 42 times a l day. atorvastati 2019-0 Yes 40mg QD Take 40 mg Methodi n (LIPITOR) 7-[address] 40 MG 15:19: daily. Hospita tablet 42 l pantoprazol 2019-0 Yes 40mg QD Take 40 mg Methodi e 7-[address] (PROTONIX) 15:19: daily. Hospi ta 40 MG EC 42 l tablet isosorbide 2019-0 Yes 30mg QD Take 30 mg M ethodi mononitrate 7-[address] (IMDUR) 30 15:19: daily. Hospi ta MG 24 hr 42 l tablet ergocalcife 2019-0 Yes [id number] Q7D Take Meth ale rol 7-25 50,000 st (VITAMIN 15:19: Units by Hospi ta D2) 50,000 42 mouth once l unit a week. capsule multivitami 2019-0 Yes 1{tbl} QD Take 1 Me thodi n 7-[address] (DAILY-LARON 15:19: mouth Hospi ta ORAL) 42 daily. l doxazosin 0 Yes 4mg Q.5D Take 4 mg Met hodi (CARDURA) 4 7-[address] MG tablet 15:19: (two) Hospita 42 times a l day. atorvastati 0 Yes 40mg QD Take 40 mg Methodi n (LIPITOR) 7-[address] 40 MG 15:19: daily. Hospita tablet 42 l pantoprazol 0 Yes 40mg QD Take 40 mg Methodi e 7-[address] (PROTONIX) 15:19: daily. Hospi ta 40 MG EC 42 l tablet isosorbide Yes 30mg QD Take 30 mg M ethodi mononitrate 7-[address] (IMDUR) 30 15:19: daily. Hospi ta MG 24 hr 42 l tablet ergocalcife 2018-0 Yes [id number] Q7D Take Meth ale rol 7-25 50,000 st (VITAMIN 15:19: Units by Hospi ta D2) 50,000 42 mouth once l unit a week. capsule multivitami 2018-0 Yes 1{tbl} QD Take 1 Me thodi n 7-[address] (DAILY-LARON 15:19: mouth Hospi ta ORAL) 42 daily. l ergocalcife 2019-0 Yes [id number] Q7D Take Meth ale rol 7-25 50,000 [address] (VITAMIN 15:19: Units by Hospi ta D2) 50,000 42 mouth once l unit a week. capsule multivitami 2019-0 Yes 1{tbl} QD Take 1 Me thodi n 7-[address] (DAILY-LARON 15:19: mouth Hospi ta ORAL) 42 daily. l doxazosin 2019-0 Yes 4mg Q.5D Take 4 mg Met hodi (CARDURA) 4 7-[address] MG tablet 15:19: (two) Hospita 42 times a l day. atorvastati 2019-0 Yes 40mg QD Take 40 mg Methodi n (LIPITOR) 7-[address] 40 MG 15:19: daily. Hospita tablet 42 l pantoprazol 2019-0 Yes 40mg QD Take 40 mg [facility] e 7-[address] (PROTONIX) 15:19: daily. Hospi ta 40 MG EC 42 l tablet isosorbide 2019-0 Yes 30mg QD Take 30 mg M ethodi mononitrate 7-[address] (IMDUR) 30 15:19: daily. Hospi ta MG 24 hr 42 l tablet doxazosin 2019-0 Yes 4mg Q.5D Take 4 mg Met hodi (CARDURA) 4 7-[address] MG tablet 15:19: (two) Hospita 42 times a l day. atorvastati 2019-0 Yes 40mg QD Take 40 mg [facility] n (LIPITOR) 7-[address] 40 MG 15:19: daily. Hospita tablet 42 l ergocalcife 2019-0 Yes [id number] Q7D Take Meth ale rol 7-25 50,000 [address] (VITAMIN 15:19: Units by Hospi ta D2) 50,000 42 mouth once l unit a week. capsule multivitami 2019-0 Yes 1{tbl} QD Take 1 Me thodi n 7-[address] (DAILY-LARON 15:19: mouth Hospi ta ORAL) 42 daily. l doxazosin 2019-0 Yes 4mg Q.5D Take 4 mg Met hodi (CARDURA) 4 7-[address] MG tablet 15:19: (two) Hospita 42 times a l day. atorvastati 2019-0 Yes 40mg QD Take 40 mg [facility] n (LIPITOR) 7-[address] 40 MG 15:19: daily. Hospita tablet 42 l pantoprazol 2019-0 Yes 40mg QD Take 40 mg [facility] e 7-[address] (PROTONIX) 15:19: daily. Hospi ta 40 MG EC 42 l tablet pantoprazol 2019-0 Yes 40mg QD Take 40 mg [facility] 7-[address] (PROTONIX) 15:19: daily. Hospi ta 40 MG EC 42 l tablet isosorbide 2019-0 Yes 30mg QD Take 30 mg M ethodi mononitrate 7-[address] (IMDUR) 30 15:19: daily. Hospi ta MG 24 hr 42 l tablet isosorbide 2019-0 Yes 30mg QD Take 30 mg M ethodi mononitrate 7-[address] (IMDUR) 30 15:19: daily. Hospi ta MG 24 hr 42 l tablet ergocalcife 2019-0 Yes [id number] Q7D Take Meth ale rol 7-25 50,000 [address] (VITAMIN 15:19: Units by Hospi ta D2) 50,000 42 mouth once l unit a week. capsule multivitami 2019-0 Yes 1{tbl} QD Take 1 Me thodi n 7-[address] (DAILY-LARON 15:19: mouth Hospi ta ORAL) 42 daily. l doxazosin 2019-0 Yes 4mg Q.5D Take 4 mg Met hodi (CARDURA) 4 7-[address] MG tablet 15:19: (two) Hospita 42 times a l day. atorvastati 2019-0 Yes 40mg QD Take 40 mg [facility] n (LIPITOR) 7-[address] 40 MG 15:19: daily. Hospita tablet 42 l pantoprazol 2019-0 Yes 40mg QD Take 40 mg [facility] 7-[address] (PROTONIX) 15:19: daily. Hospi ta 40 MG EC 42 l tablet isosorbide 2019-0 Yes 30mg QD Take 30 mg M ethodi mononitrate 7-[address] (IMDUR) 30 15:19: daily. Hospi ta MG 24 hr 42 l tablet ergocalcife 2019-0 Yes [id number] Q7D Take Meth ale rol 7-25 50,000 [address] (VITAMIN 15:19: Units by Hospi ta D2) 50,000 42 mouth once l unit a week. capsule multivitami 2019-0 Yes 1{tbl} QD Take 1 Me thodi n 7-[address] (DAILY-LARON 15:19: mouth Hospi ta ORAL) 42 daily. l doxazosin 2019-0 Yes 4mg Q.5D Take 4 mg Met [facility]odi (CARDURA) 4 7-[address] MG tablet 15:19: (two) Hospita 42 times a l day. atorvastati 2019-0 Yes 40mg QD Take 40 mg [facility] n (LIPITOR) 7-[address] 40 MG 15:19: daily. Hospita tablet 42 l pantoprazol 2019-0 Yes 40mg QD Take 40 mg Method[facility] e 7-[address] (PROTONIX) 15:19: daily. Hospi ta 40 MG EC 42 l tablet isosorbide 2019-0 Yes 30mg QD Take 30 mg M ethodi mononitrate 7-[address] (IMDUR) 30 15:19: daily. Hospi ta MG 24 hr 42 l tablet ergocalcife 2019-0 Yes [id number] Q7D Take Meth ale rol 7-25 50,000 [address] (VITAMIN 15:19: Units by Hospi ta D2) 50,000 42 mouth once l unit a week. capsule multivitami 2019-0 Yes 1{tbl} QD Take 1 Me thodi n 7-[address] (DAILY-LARON 15:19: mouth Hospi ta ORAL) 42 daily. l doxazosin 2019-0 Yes 4mg Q.5D Take 4 mg Met [facility]odi (CARDURA) 4 7-[address] MG tablet 15:19: (two) Hospita 42 times a l day. atorvastati 2019-0 Yes 40mg QD Take 40 mg [facility] n (LIPITOR) 7-[address] 40 MG 15:19: daily. Hospita tablet 42 l pantoprazol 2019-0 Yes 40mg QD Take 40 mg Method[facility] e 7-[address] (PROTONIX) 15:19: daily. Hospi ta 40 MG EC 42 l tablet isosorbide 2019-0 Yes 30mg QD Take 30 mg M ethodi mononitrate 7-[address] (IMDUR) 30 15:19: daily. Hospi ta MG 24 hr 42 l tablet ergocalcife 2019-0 Yes [id number] Q7D Take Meth ale rol 7-25 50,000 st (VITAMIN 15:19: Units by Hospi ta D2) 50,000 42 mouth once l unit a week. capsule multivitami 2019-0 Yes 1{tbl} QD Take 1 Me thodi n 7-[address] (DAILY-LARON 15:19: mouth Hospi ta ORAL) 42 daily. l doxazosin 2019-0 Yes 4mg Q.5D Take 4 mg Met [facility] (CARDURA) 4 7-[address] MG tablet 15:19: (two) Hospita 42 times a l day. atorvastati 2019-0 Yes 40mg QD Take 40 mg [facility] n (LIPITOR) 7-[address] 40 MG 15:19: daily. Hospita tablet 42 l pantoprazol 2019-0 Yes 40mg QD Take 40 mg Method[facility] e 7-[address] (PROTONIX) 15:19: daily. Hospi ta 40 MG EC 42 l tablet isosorbide 2019-0 Yes 30mg QD Take 30 mg M ethodi mononitrate 7-[address] (IMDUR) 30 15:19: daily. Hospi ta MG 24 hr 42 l tablet ergocalcife 2019-0 Yes [id number] Q7D Take Meth ale rol 7-25 50,000 [address] (VITAMIN 15:19: Units by Hospi ta D2) 50,000 42 mouth once l unit a week. capsule multivitami 2019-0 Yes 1{tbl} QD Take 1 Me thodi n 7-[address] (DAILY-LARON 15:19: mouth Hospi ta ORAL) 42 daily. l doxazosin 2019-0 Yes 4mg Q.5D Take 4 mg Met [facility]odi (CARDURA) 4 7-[address] MG tablet 15:19: (two) Hospita 42 times a l day. atorvastati 2019-0 Yes 40mg QD Take 40 mg [facility] n (LIPITOR) 7-[address] 40 MG 15:19: daily. Hospita tablet 42 l pantoprazol 2019-0 Yes 40mg QD Take 40 mg Method[facility] 7-[address] (PROTONIX) 15:19: daily. Hospi ta 40 MG EC 42 l tablet isosorbide 2019-0 Yes 30mg QD Take 30 mg M ethodi mononitrate 7-[address] (IMDUR) 30 15:19: daily. Hospi ta MG 24 hr 42 l tablet ergocalcife 2019-0 Yes [id number] Q7D Take Meth ale rol 7-25 50,000 st (VITAMIN 15:19: Units by Hospi ta D2) 50,000 42 mouth once l unit a week. capsule multivitami 2019-0 Yes 1{tbl} QD Take 1 Me thodi n 7-[address] (DAILY-LARON 15:19: mouth Hospi ta ORAL) 42 daily. l doxazosin Yes 4mg Q.5D Take 4 mg Met [facility] (CARDURA) 4 7-[address] MG tablet 15:19: (two) Hospita 42 times a l day. atorvastati 0 Yes 40mg QD Take 40 mg Methodi [...] ta MG 24 hr 42 l tablet metoprolol 0 Yes TK 1 T PO Me thodi tartrate 7-[address] (LOPRESSOR) 00:00: Hospit a 25 mg 00 l tablet metOLazone 0 Yes TK 1 T PO Me thodi (ZAROXOLYN) 7-[address] 5 MG tablet 00:00: Hospit a 00 l metoprolol 2018-0 Yes TK 1 T PO Me thodi tartrate 7-[address] (LOPRESSOR) 00:00: Hospit a 25 mg 00 l tablet metOLazone 0 Yes TK 1 T PO Me thodi (ZAROXOLYN) 7-[address] 5 MG tablet 00:00: Hospit a 00 l metoprolol 2018-0 Yes TK 1 T PO Me thodi tartrate 7-[address] (LOPRESSOR) 00:00: Hospit a 25 mg 00 l tablet metOLazone 0 Yes TK 1 T PO Me thodi (ZAROXOLYN) 7-[address] 5 MG tablet 00:00: Hospit a 00 l metoprolol 2018-0 Yes TK 1 T PO Me thodi tartrate 7-[address] (LOPRESSOR) 00:00: Hospit a 25 mg 00 l tablet metOLazone 0 Yes TK 1 T PO Me thodi (ZAROXOLYN) 7-[address] 5 MG tablet 00:00: Hospit a 00 l metoprolol 2018-0 Yes TK 1 T PO Me thodi tartrate 7-[address] (LOPRESSOR) 00:00: Hospit a 25 mg 00 l tablet metOLazone 2018-0 Yes TK 1 T PO Me thodi (ZAROXOLYN) 7-[address] 5 MG tablet 00:00: Hospit a 00 l metoprolol 2018-0 Yes TK 1 T PO Me thodi tartrate 7-[address] (LOPRESSOR) 00:00: Hospit a 25 mg 00 l tablet metOLazone 0 Yes TK 1 T PO Me thodi (ZAROXOLYN) 7-[address] 5 MG tablet 00:00: Hospit a 00 l metoprolol Yes TK 1 T PO Me thodi tartrate 7-[address] (LOPRESSOR) 00:00: Hospit a 25 mg 00 l tablet metOLazone 0 Yes TK 1 T PO Me thodi (ZAROXOLYN) 7-[address] 5 MG tablet 00:00: Hospit a 00 l metoprolol 2018-0 Yes TK 1 T PO Me thodi tartrate 7-[address] (LOPRESSOR) 00:00: Hospit a 25 mg 00 l tablet metOLazone 0 Yes TK 1 T PO Me thodi (ZAROXOLYN) 7-[address] 5 MG tablet 00:00: Hospit a 00 l metoprolol 0 Yes TK 1 T PO Me thodi tartrate 7-[address] (LOPRESSOR) 00:00: Hospit a 25 mg 00 l tablet metOLazone 0 Yes TK 1 T PO Me thodi (ZAROXOLYN) 7-[address] 5 MG tablet 00:00: Hospit a 00 l metOLazone 0 Yes TK 1 T PO Me thodi (ZAROXOLYN) 7-[address] 5 MG tablet 00:00: Hospit a 00 l metoprolol 0 Yes TK 1 T PO Me thodi tartrate 7-[address] (LOPRESSOR) 00:00: Hospit a 25 mg 00 l tablet metoprolol 0 Yes TK 1 T PO Me thodi tartrate 7-[address] (LOPRESSOR) 00:00: Hospit a 25 mg 00 l tablet metOLazone 0 Yes TK 1 T PO Me thodi (ZAROXOLYN) 7-[address] 5 MG tablet 00:00: Hospit a 00 l metoprolol 2019-0 Yes TK 1 T PO Me thodi tartrate 7-[address] (LOPRESSOR) 00:00: Hospit a 25 mg 00 l tablet metOLazone 2019-0 Yes TK 1 T PO Me thodi (ZAROXOLYN) 7-[address] 5 MG tablet 00:00: Hospit a 00 l metoprolol 2019-0 Yes TK 1 T PO Me thodi tartrate 7-[address] (LOPRESSOR) 00:00: Hospit a 25 mg 00 l tablet metOLazone 2019-0 Yes TK 1 T PO Me thodi (ZAROXOLYN) 7-[address] 5 MG tablet 00:00: Hospit a 00 l Atorvastati 2019-0 Yes Salman AT BEDTIME Memoria n Calcium 7-10 Paul l 00:00: Metoprolol 2019-0 Yes Salman TWICE Dickson kulwinder Tartrate 7-10 Paul DAILY l 00:00: Losartan 2019-0 Yes Salman DAILY Memori a Potassium 7-10 Paul l 00:00: Clopidogrel 2019-0 Yes Salman DAILY Mem oria Bisulfate 7-10 Paul l 00:00: Metolazone 2019-0 Yes Salman DAILY Dickson kulwinder 7-10 Paul l 00:00: Aspirin 2019-0 Yes Salman DAILY Memoria 7-10 Paul l 00:00: Furosemide 2019-0 Yes Salman TWICE Dickson kulwinder 7-10 Paul DAILY AT l 00:00: 9am & 5pm aspirin 2019-0 Yes Methodi (ECOTRIN) 7-10 st 81 MG 00:00: Hospita enteric 00 l coated tablet furosemide 2019-0 Yes Take by Meth ale (LASIX) 40 7-[address] mg tablet 00:00: Hospita 00 l aspirin 2019-0 Yes Methodi (ECOTRIN) 7-10 st 81 MG 00:00: Hospita enteric 00 l coated tablet furosemide 2019-0 Yes Take by Meth ale (LASIX) 40 7-[address] mg tablet 00:00: Hospita 00 l aspirin 2019-0 Yes Methodi (ECOTRIN) 7-10 st 81 MG 00:00: Hospita enteric 00 l coated tablet furosemide 2019-0 Yes Take by Meth ale (LASIX) 40 7-[address] mg tablet 00:00: Hospita 00 l aspirin 2019-0 Yes Methodi (ECOTRIN) 7-10 st 81 MG 00:00: Hospita enteric 00 l coated tablet furosemide 2019-0 Yes Take by Meth ale (LASIX) 40 7-[address] mg tablet 00:00: Hospita 00 l aspirin 2019-0 Yes Methodi (ECOTRIN) 7-10 st 81 MG 00:00: Hospita enteric 00 l coated tablet furosemide 2019-0 Yes Take by Meth ale (LASIX) 40 7-[address] mg tablet 00:00: Hospita 00 l aspirin 2019-0 Yes Methodi (ECOTRIN) 7-10 st 81 MG 00:00: Hospita enteric 00 l coated tablet furosemide 2019-0 Yes Take by Meth ale (LASIX) 40 7-[address] mg tablet 00:00: Hospita 00 l aspirin 2019-0 Yes Methodi (ECOTRIN) 7-10 st 81 MG 00:00: Hospita enteric 00 l coated tablet aspirin 2019-0 Yes Methodi (ECOTRIN) 7-10 st 81 MG 00:00: Hospita enteric 00 l coated tablet furosemide 2019-0 Yes Take by Meth ale (LASIX) 40 7-[address] mg tablet 00:00: Hospita 00 l furosemide 2019-0 Yes Take by Meth ale (LASIX) 40 7-[address] mg tablet 00:00: Hospita 00 l aspirin 2019-0 Yes Methodi (ECOTRIN) 7-10 st 81 MG 00:00: Hospita enteric 00 l coated tablet furosemide 2019-0 Yes Take by Meth ale (LASIX) 40 7-[address] mg tablet 00:00: Hospita 00 l aspirin 2019-0 Yes Methodi (ECOTRIN) 7-10 st 81 MG 00:00: Hospita enteric 00 l coated tablet furosemide 2019-0 Yes Take by Meth ale (LASIX) 40 7-[address] mg tablet 00:00: Hospita 00 l aspirin 2019-0 Yes Methodi (ECOTRIN) 7-10 st 81 MG 00:00: Hospita enteric 00 l coated tablet furosemide 2019-0 Yes Take by Meth ale (LASIX) 40 7-[address] mg tablet 00:00: Hospita 00 l aspirin 2019-0 Yes Methodi (ECOTRIN) 7-10 st 81 MG 00:00: Hospita enteric 00 l coated tablet furosemide 2018- Yes Take by Meth ale (LASIX) 40 7-[address] mg tablet 00:00: Hospita 00 l aspirin 2018-0 Yes Methodi (ECOTRIN) 7-10 st 81 MG 00:00: Hospita enteric 00 l coated tablet furosemide 2018- Yes Take by Meth ale (LASIX) 40 7-[address] mg tablet 00:00: Hospita 00 l Atorvastati 2018-0 Yes Memori a n Calcium 7-09 l 10:23: Lisinopril 2018-0 Yes Memoria 7-09 l 10:23: Doxazosin 2018-0 Yes TWICE Memoria 7-09 DAILY l 00:00: Folic 2018-0 Yes DAILY Memoria Acid/Vit B 7-09 l Complex And 00:00: Freddy Sarah Hydralazine 2018-0 Yes Q8H Memori a Hcl 7-09 l 00:00: Lactulose 2018-0 Yes DAILY PRN Mem oria 7-09 For l 00:00: Constipati on Lanthanum 2018-0 Yes THREE Memoria Carbonate 7-09 TIMES A l 00:00: DAY Atorvastati 2018-0 Yes AT BEDTIME Memoria n Calcium 7-09 l 00:00: Nifedipine 2018-0 Yes TWICE Memori a 7-09 DAILY l 00:00: Lisinopril 2018-0 Yes TWICE Memori a 7-09 DAILY l 00:00: Pantoprazol 2018-0 Yes DAILY Memor ia e 7-09 l 00:00: Sennosides/ 2019-0 Yes TWICE Memor ia Docusate 7-09 DAILY l Sodium 00:00: Sevelamer 2018-0 Yes THREE Memoria Carbonate 7-09 TIMES A l 00:00: DAY NIFEdipine 2018-0 Yes 1{tbl} Take 1 Met hodi XL 7-[address] (PROCARDIA 00:00: mouth. Hospi ta XL) 60 MG 00 l 24 hr tablet hydrALAZINE 2018-0 Yes 1{tbl} Take 1 Me thodi (APRESOLINE 7-[address] ) 100 MG 00:00: mouth. Hospita tablet 00 l lactulose 2019-0 Yes Take by Metho di (CEPHULAC) [address] 10 gram 00:00: Hospita packet 00 l lanthanum 2019-0 Yes Take by Metho di 1,000 mg 7- mouth. st powder in 00:00: Hospita packet 00 l NIFEdipine 2019-0 Yes 1{tbl} Take 1 Met hodi XL 7-[address] (PROCARDIA 00:00: mouth. Hospi ta XL) 60 MG 00 l 24 hr tablet hydrALAZINE 2019-0 Yes 1{tbl} Take 1 Me thodi (APRESOLINE 7-[address] ) 100 MG 00:00: mouth. Hospita tablet 00 l lactulose 2019-0 Yes Take by Metho di (CEPHULAC) 10-[address] 10 gram 00:00: Hospita packet 00 l lanthanum 2019-0 Yes Take by Metho di 1,[address] powder in 00:00: Hospita packet 00 l NIFEdipine 2019-0 Yes 1{tbl} Take 1 Met hodi XL 7-[address] (PROCARDIA 00:00: mouth. Hospi ta XL) 60 MG 00 l 24 hr tablet hydrALAZINE 2019-0 Yes 1{tbl} Take 1 Me thodi (APRESOLINE 7-[address] ) 100 MG 00:00: mouth. Hospita tablet 00 l lactulose 2019-0 Yes Take by Metho di (CEPHULAC) [address] 10 gram 00:00: Hospita packet 00 l lanthanum 2019-0 Yes Take by Metho di 1,000 mg 7- mouth. st powder in 00:00: Hospita packet 00 l NIFEdipine 2019-0 Yes 1{tbl} Take 1 Met hodi XL 7-[address] (PROCARDIA 00:00: mouth. Hospi ta XL) 60 MG 00 l 24 hr tablet hydrALAZINE 2019-0 Yes 1{tbl} Take 1 Me thodi (APRESOLINE 7-[address] ) 100 MG 00:00: mouth. Hospita tablet 00 l lactulose 2019-0 Yes Take by Metho di (CEPHULAC) 7-[address] 10 gram 00:00: Hospita packet 00 l lanthanum 2019-0 Yes Take by Metho di 1,000 mg 7-[address] powder in 00:00: Hospita packet 00 l NIFEdipine 2019-0 Yes 1{tbl} Take 1 Met hodi XL 7-[address] (PROCARDIA 00:00: mouth. Hospi ta XL) 60 MG 00 l 24 hr tablet hydrALAZINE 2019-0 Yes 1{tbl} Take 1 Me thodi (APRESOLINE 7-[address] ) 100 MG 00:00: mouth. Hospita tablet 00 l lactulose 2019-0 Yes Take by Metho di (CEPHULAC) [address] 10 gram 00:00: Hospita packet 00 l lanthanum 2019-0 Yes Take by Metho di 1,000 mg 7- mouth. st powder in 00:00: Hospita packet 00 l NIFEdipine 2019-0 Yes 1{tbl} Take 1 Met hodi XL 7-[address] (PROCARDIA 00:00: mouth. Hospi ta XL) 60 MG 00 l 24 hr tablet hydrALAZINE 2019-0 Yes 1{tbl} Take 1 Me thodi (APRESOLINE 7-[address] ) 100 MG 00:00: mouth. Hospita tablet 00 l lactulose 2019-0 Yes Take by Metho di (CEPHULAC) [address] 10 gram 00:00: Hospita packet 00 l lanthanum 2019-0 Yes Take by Metho di 1,000 mg 7- mouth. st powder in 00:00: Hospita packet 00 l NIFEdipine 2019-0 Yes 1{tbl} Take 1 Met hodi XL 7-[address] (PROCARDIA 00:00: mouth. Hospi ta XL) 60 MG 00 l 24 hr tablet hydrALAZINE 2019-0 Yes 1{tbl} Take 1 Me thodi (APRESOLINE 7-[address] ) 100 MG 00:00: mouth. Hospita tablet 00 l lactulose 2019-0 Yes Take by Metho di (CEPHULAC) 7- mouth. st 10 gram 00:00: Hospita packet 00 l lanthanum 2019-0 Yes Take by Metho di 1,000 mg 7-[address] powder in 00:00: Hospita packet 00 l NIFEdipine 2019-0 Yes 1{tbl} Take 1 Met hodi XL 7-[address] (PROCARDIA 00:00: mouth. Hospi ta XL) 60 MG 00 l 24 hr tablet hydrALAZINE 2019-0 Yes 1{tbl} Take 1 Me thodi (APRESOLINE 7-[address] ) 100 MG 00:00: mouth. Hospita tablet 00 l lactulose 2019-0 Yes Take by Metho di (CEPHULAC) [address] 10 gram 00:00: Hospita packet 00 l hydrALAZINE 2019-0 Yes 1{tbl} Take 1 Me thodi (APRESOLINE 7-[address] ) 100 MG 00:00: mouth. Hospita tablet 00 l lactulose 2019-0 Yes Take by Metho di (CEPHULAC) 10-[address] 10 gram 00:00: Hospita packet 00 l lanthanum 2019-0 Yes Take by Metho di 1,000 mg 7- mouth. st powder in 00:00: Hospita packet 00 l NIFEdipine 2019-0 Yes 1{tbl} Take 1 Met hodi XL 7-[address] (PROCARDIA 00:00: mouth. Hospi ta XL) 60 MG 00 l 24 hr tablet lanthanum 2019-0 Yes Take by Metho di 1,000 mg 10-[address] powder in 00:00: Hospita packet 00 l hydrALAZINE 2019-0 Yes 1{tbl} Take 1 Me thodi (APRESOLINE 7-[address] ) 100 MG 00:00: mouth. Hospita tablet 00 l lactulose 2019-0 Yes Take by Metho di (CEPHULAC) 10-[address] 10 gram 00:00: Hospita packet 00 l lanthanum 2019-0 Yes Take by Metho di 1,000 mg 7- mouth. st powder in 00:00: Hospita packet 00 l NIFEdipine 2019-0 Yes 1{tbl} Take 1 Met hodi XL 7-[address] (PROCARDIA 00:00: mouth. Hospi ta XL) 60 MG 00 l 24 hr tablet NIFEdipine 2019-0 Yes 1{tbl} Take 1 Met hodi XL 7-[address] (PROCARDIA 00:00: mouth. Hospi ta XL) 60 MG 00 l 24 hr tablet hydrALAZINE 2019-0 Yes 1{tbl} Take 1 Me thodi (APRESOLINE 7-[address] ) 100 MG 00:00: mouth. Hospita tablet 00 l lactulose 2019-0 Yes Take by Metho di (CEPHULAC) 7- mouth. st 10 gram 00:00: Hospita packet 00 l lanthanum 2019-0 Yes Take by Metho di 1,000 mg 7-[address] powder in 00:00: Hospita packet 00 l NIFEdipine 2019-0 Yes 1{tbl} Take 1 Met hodi XL 7-[address] (PROCARDIA 00:00: mouth. Hospi ta XL) 60 MG 00 l 24 hr tablet hydrALAZINE 2019-0 Yes 1{tbl} Take 1 Me thodi (APRESOLINE 7-[address] ) 100 MG 00:00: mouth. Hospita tablet 00 l lactulose 2019-0 Yes Take by Metho di (CEPHULAC) 7- mouth. st 10 gram 00:00: Hospita packet 00 l lanthanum 2019-0 Yes Take by Metho di 1,000 mg 7- mouth. st powder in 00:00: Hospita packet 00 l NIFEdipine 2019-0 Yes 1{tbl} Take 1 Met hodi XL 7-[address] (PROCARDIA 00:00: mouth. Hospi ta XL) 60 MG 00 l 24 hr tablet hydrALAZINE 2019-0 Yes 1{tbl} Take 1 Me thodi (APRESOLINE 7-[address] ) 100 MG 00:00: mouth. Hospita tablet 00 l lactulose 2019-0 Yes Take by Metho di (CEPHULAC) 7- mouth. st 10 gram 00:00: Hospita packet 00 l lanthanum 2019-0 Yes Take by Metho di 1,000 mg 7-[address] powder in 00:00: Hospita packet 00 l Immunizations Ordered Filled Immunization Date Status Comments [facility] e Immunization Name Name Influenza High Dose 2021-02-02 Completed [facility]ity of 00:00:00 [facility] SARS-COV-2 COVID-19 2020-07-30 Completed Unive rsity of PFIZER VACCINE 00:00:00 [facility] SARS-COV-2 COVID-19 2020-07-11 Completed Unive rsity of PFIZER VACCINE 00:00:00 [facility] PPD (TB) 2018-03-20 Completed [facility] 00:00:00 [facility] Influenza Virus 2018-01-20 Completed Universit y of Vaccine - Whole 00:00:00 [facility] ical Branch Pneumococcal 2014-08-02 Completed [place] Polysaccharide, 00:00:00 [facility] PPSV23 (PNEUMOVAX) Branch Vital Signs Vital Name [...] 2021-05-23 01:40:00 126 mm[Hg] [facility]iver [facility] Diastolic blood 2021-05-23 01:40:00 46 mm[Hg] Unive rsity [facility] Heart rate 2021-05-23 01:40:00 62 /min [facility] ty [facility] Body temperature 2021-05-23 01:40:00 [facility].67 [facility] 2021-05-23 01:40:00 16 /[facility] Body weight 2021-05-23 01:40:00 67.3 kg [facility] BMI 2021-05-23 01:40:00 26.28 kg/m2 [facility] Oxygen saturation in 2021-05-22 17:16:00 93 /min [facility] Arterial blood by [facility] Pulse oximetry Branch Body height 2021-05-19 19:34:00 160 cm [facility] Systolic blood 2021-07-04 08:10:00 149 mm[Hg] [facility] Diastolic blood 2021-07-04 08:10:00 65 mm[Hg] [facility] S [facility] Heart rate 2021-07-04 08:10:00 71 /min [facility] Body temperature 2021-07-04 08:10:00 36.22 Priya [facility] Respiratory rate 2021-07-04 08:10:00 18 /min [facility] Oxygen saturation in 2021-07-04 08:10:00 93 /min [facility] Arterial blood by [facility] Pulse oximetry Systolic blood 2021-07-03 14:23:00 123 mm[Hg] [facility] Diastolic blood 2021-07-03 14:23:00 60 mm[Hg] [facility] S [facility] Heart rate 2021-07-03 14:23:00 70 /min [facility] Body temperature 2021-07-03 14:23:00 35.94 Priya [facility] Respiratory rate 2021-07-03 14:23:00 18 /min [facility] Oxygen saturation in 2021-07-03 14:23:00 97 /min [facility] Arterial blood by Medical Ce [facility]ter Pulse oximetry Body weight 2021-07-03 13:00:00 60.4 kg [facility] BMI 2021-07-03 13:00:00 23.59 kg/m2 [facility] Systolic blood 2021-07-03 08:18:00 156 mm[Hg] [facility] Diastolic blood 2021-07-03 08:18:00 67 mm[Hg] [facility] Heart rate 2021-07-03 08:18:00 68 /min [facility] Body temperature 2021-07-03 08:18:00 36.22 Priya [facility] Respiratory rate 2021-07-03 08:18:00 20 /min [facility] Oxygen saturation in 2021-07-03 08:18:00 94 /min [facility] Arterial blood by Medical [facility]ter Pulse oximetry Heart rate 2021-07-02 10:00:00 72 /min [facility] Systolic blood 2021-07-02 08:00:00 171 mm[Hg] [facility] Diastolic blood 2021-07-02 08:00:00 78 mm[Hg] [facility] Body temperature 2021-07-02 08:00:00 36.56 Priya [facility] Respiratory rate 2021-07-02 08:00:00 20 /min [facility] Oxygen saturation in 2021-07-02 08:00:00 94 /min [facility] Arterial blood by Medical Ce [facility]ter Pulse oximetry Body weight 2021-07-02 04:21:00 62.37 kg [facility] BMI 2021-07-02 04:21:00 24.36 kg/m2 [facility] Systolic blood 2021-07-01 09:15:00 167 mm[Hg] [facility] Diastolic blood 2021-07-01 09:15:00 71 mm[Hg] [facility] Heart rate 2021-07-01 09:15:00 71 /min [facility] Respiratory rate 2021-07-01 09:15:00 14 /min [facility] Oxygen saturation in 2021-07-01 09:15:00 96 /min [facility] Arterial blood by [facility] Pulse oximetry Body temperature 2021-07-01 09:00:00 36.44 Priya [facility] Systolic blood 2021-06-29 14:24:00 169 mm[Hg] [facility] Diastolic blood 2021-06-29 14:24:00 71 mm[Hg] [facility] rate 2021-06-29 14:24:00 70 /min [facility] Body temperature 2021-06-29 14:24:00 36.67 Priya [facility] Respiratory rate 2021-06-29 14:24:00 20 /min [facility] Oxygen saturation in 2021-06-29 14:24:00 98 /min [facility] Arterial blood by [facility] Pulse oximetry Systolic blood 2021-06-29 07:46:00 133 mm[Hg] [facility] Diastolic blood 2021-06-29 07:46:00 63 mm[Hg] [facility] rate 2021-06-29 07:46:00 70 /min [facility] Body temperature 2021-06-29 07:46:00 36.44 Priya [facility] Respiratory rate 2021-06-29 07:46:00 20 /min [facility] Oxygen saturation in 2021-06-29 07:46:00 97 /min [facility] Arterial blood by [facility] Pulse oximetry Systolic blood 2021-06-26 10:15:00 169 mm[Hg] [facility] Diastolic blood 2021-06-26 10:15:00 66 mm[Hg] [facility] [facility] rate 2021-06-26 10:15:00 71 /min [facility] Body temperature 2021-06-26 10:15:00 36.56 Priya [facility] Respiratory rate 2021-06-26 10:15:00 16 /min [facility] Oxygen saturation in 2021-06-26 10:15:00 99 /min [facility] Arterial blood by Medical Ce nter Pulse oximetry Systolic blood 2021-06-26 08:15:00 128 mm[Hg] [facility] Diastolic blood 2021-06-26 08:15:00 53 mm[Hg] [facility] rate 2021-06-26 08:15:00 70 /min [facility] Body temperature 2021-06-26 08:15:00 36.5 Priya [facility] Respiratory rate 2021-06-26 08:15:00 9 /min [facility] Oxygen saturation in 2021-06-26 08:15:00 97 /min [facility] Arterial blood by Medical Ce nter Pulse oximetry Body weight 2021-06-25 00:00:00 64.5 kg [facility] BMI 2021-06-25 00:00:00 25.19 kg/m2 [facility] Body height 2021-06-13 11:09:00 160 cm [facility] Body height 2020-07-24 16:34:00 160 cm [facility] Body weight 2020-07-24 16:34:00 67 kg [facility] BMI 2020-07-24 16:34:00 26.17 kg/m2 [facility] Temperature Oral (F) 2019-02-19 22:00:00 98.3 F [facility] Rate 2019-02-19 22:00:00 [facility] Respitory Rate 2019-02-19 22:00:00 Talisha al [facility] Systolic (mm Hg) 2019-02-19 22:00:00 Dickson [facility] Diastolic (mm Hg) 2019-02-19 22:00:00 [facility] Height 2019-02-19 11:49:00 [facility] Weight 2019-02-19 11:49:00 [facility] Height 2019-01-26 05:47:00 [facility] Heart Rate 2019-01-26 05:47:00 [facility] Respitory Rate 2019-01-26 05:47:00 Memori [facility] Systolic (mm Hg) 2019-01-26 05:47:00 Dickson [facility] Diastolic (mm Hg) 2019-01-26 05:47:00 [facility] Temperature Oral (F) 2019-01-26 05:19:00 101.3 F [facility] Weight 2019-01-26 01:51:00 [facility] Heart Rate 2018-10-11 20:05:00 [facility] Systolic (mm Hg) 2018-10-11 20:05:00 Dickson [facility] Diastolic (mm Hg) 2018-10-11 20:05:00 [facility] Temperature Oral (F) 2018-10-11 20:00:00 98.1 F [facility] Respitory Rate 2018-10-11 20:00:00 [facility] Height 2018-10-10 13:16:00 [facility] Weight 2018-10-10 13:16:00 [facility] Procedures Procedure Date / Time Performing Clinician Source Performed ARRYTHMIA IMPLANT REPORT 2021-07-06 00:00:00 Provider, Default [facility] POCT-GLUCOSE METER 2021-07-04 08:33:00 Logan Russo [facility] CBC (HEMOGRAM ONLY) 2021-07-04 04:37:[address] [facility] BASIC METABOLIC PANEL (7) 2021-07-04 04:37:00 Dillon Ricardo [facility] MAGNESIUM 2021-07-04 04:37:00 Martinez Ricardo [facility] PHOSPHORUS 2021-07-04 04:37:[address] [facility] XR CHEST 1 VIEW PORTABLE 2021-07-04 04:30:00 Martinez Ricardo [facility] / BEDSIDE [facility] POCT-GLUCOSE METER 2021-07-03 21:18:00 Logan Russo [facility] POCT-GLUCOSE METER 2021-07-03 17:40:00 Logan Russo [facility] SARS-COV2/RT-PCR ([facility] & 2021-07-03 17:24[facility]00 [facility] POCT-GLUCOSE METER 2021-07-03 16:06:00 Logan Russo [facility] REPORT OF PROCEDURE - 2021-07-03 15:34:23 [facility] COLONOSCOPY 2021-07-03 15:05:[address] [facility] TISSUE EXAM 2021-07-03 15:04:[address] [facility] COLONOSCOPY,POLYPECTOMY 2021-07-03 14:39:[address] [facility] COLONOSCOPY 2021-07-03 14:00:[address] [facility] POCT-GLUCOSE METER 2021-07-03 13:31:00 Logan Russo [facility] COLONOSCOPY 2021-07-03 13:00:[address] [facility] HEMODIALYSIS INPATIENT 2021-07-03 10:32:50 Wilner Apnote [facility] POCT-GLUCOSE METER 2021-07-03 08:44:00 Logan Russo [facility] XR CHEST 1 VIEW PORTABLE 2021-07-03 05:24:00 Martinez Ricardo [facility] / BEDSIDE [facility] CBC (HEMOGRAM ONLY) 2021-07-03 03:08:[address] [facility] BASIC METABOLIC PANEL (7) 2021-07-03 03:08:00 Dillon Ricardo [facility] MAGNESIUM 2021-07-03 03:08:[address] [facility] PHOSPHORUS 2021-07-03 03:08:00 [place], [facility] POCT-GLUCOSE METER 2021-07-02 21:26:00 RussoLogan [facility] POCT-GLUCOSE METER 2021-07-02 17:49:00 RussoLogan [facility] POCT-GLUCOSE METER 2021-07-02 12:48:00 RussoLogan [facility] POCT-GLUCOSE METER 2021-07-02 08:33:00 RussoLogan [facility] XR CHEST 1 VIEW PORTABLE 2021-07-02 06:45:00 Davion [facility] CBC (HEMOGRAM ONLY) 2021-07-02 05:29:00 Davion [facility] BASIC METABOLIC PANEL (7) 2021-07-02 05:29:[address] [facility] MAGNESIUM 2021-07-02 05:29:00 Davion [facility] PHOSPHORUS 2021-07-02 05:29:00 Davion [facility] POCT-GLUCOSE METER 2021-07-01 21:45:00 RussoLogan [facility] POCT-GLUCOSE METER 2021-07-01 17:44:00 RussoLogan [facility] POCT-GLUCOSE METER 2021-07-01 13:26:00 Logan Russo [facility] HEMODIALYSIS INPATIENT 2021-07-01 12:51:00 Wilner Aponte [facility] HEMODIALYSIS INPATIENT 2021-07-01 09:16:58 Wilner Aponte [facility] POCT-GLUCOSE METER 2021-07-01 08:31:00 Russo, Logan Vaca [facility] XR CHEST 1 VIEW PORTABLE 2021-07-01 05:38:00 Davion [facility] CBC (HEMOGRAM ONLY) 2021-07-01 05:15:00 Davion [facility] BASIC METABOLIC PANEL (7) 2021-07-01 05:15:[address] [facility] MAGNESIUM 2021-07-01 05:15:[address] [facility] PHOSPHORUS 2021-07-01 05:15:00 [facility]UCOSE METER 2021-06-30 21:03:00 Logan Russo [facility] VENOGRAM 2021-06-30 18:06:00 Krzysztof Dodd [facility] POCT-GLUCOSE METER 2021-06-30 17:27:00 Logan Russo [facility] XR ABDOMEN / KUB 1 VIEW 2021-06-30 17:21:00 Rowan Loco [facility] POCT-GLUCOSE METER 2021-06-30 12:24:00 Logan Russo [facility] POCT-GLUCOSE METER 2021-06-30 08:15:00 Logan Russo [facility] CBC (HEMOGRAM ONLY) 2021-06-30 04:40:[address] [facility] BASIC METABOLIC PANEL (7) 2021-06-30 04:40:[address] [facility] MAGNESIUM 2021-06-30 04:40:00 [facility] 2021-06-30 04:40:[address] [facility] XR CHEST 1 VIEW PORTABLE 2021-06-30 03:46:00 Martinez Ricardo [facility] / BEDSIDE [facility] PREPARE LEUKO-REDUCED RBC 2021-06-29 23:54:[address] [facility] POCT-GLUCOSE METER 2021-06-29 21:53:00 Logan Russo [facility] POCT-GLUCOSE METER 2021-06-29 17:44:00 Logan Russo [facility] POCT-GLUCOSE METER 2021-06-29 14:20:00 Logan Russo [facility] HEMODIALYSIS INPATIENT 2021-06-29 13:25:00 GregBertrand luevano DIANE [facility] POCT-GLUCOSE METER 2021-06-29 08:39:00 Logan Russo [facility] XR CHEST 1 VIEW PORTABLE 2021-06-29 05:20:00 Martinez Ricardo [facility] CBC (HEMOGRAM ONLY) 2021-06-29 04:49:[address] [facility] BASIC METABOLIC PANEL (7) 2021-06-29 04:49:[address] [facility] MAGNESIUM 2021-06-29 04:49:[address] [facility] PHOSPHORUS 2021-06-29 04:49:00 [facility] POCT-GLUCOSE METER 2021-06-28 19:42:00 Logan Russo [facility] POCT-GLUCOSE METER 2021-06-28 17:22:00 Logan Russo [facility] CBC W/PLT COUNT & AUTO 2021-06-28 15:23:00 Niki [facility] CBC W/PLT COUNT & AUTO 2021-06-28 15:23:00 Niki [facility] POCT-GLUCOSE METER 2021-06-28 12:31:00 Logan Russo [facility] TRANSFUSE LEUKO-REDUCED 2021-06-28 11:03:00 [facility] PREPARE LEUKO-REDUCED RBC 2021-06-28 10:49:[address] [facility] POCT-GLUCOSE METER 2021-06-28 08:32:00 Logan Russo [facility] XR CHEST 1 VIEW PORTABLE 2021-06-28 04:23:00 Martinez Ricardo [facility] CBC (HEMOGRAM ONLY) 2021-06-28 04:05:00 [facility] BASIC METABOLIC PANEL (7) 2021-06-28 04:05:[address] [facility] MAGNESIUM 2021-06-28 04:05:[address] [facility] PHOSPHORUS 2021-06-28 04:05:00 [facility] PREPARE LEUKO-REDUCED RBC 2021-06-27 23:54:[address] [facility] POCT-GLUCOSE METER 2021-06-27 21:27:00 RussoLogan [facility] POCT-GLUCOSE METER 2021-06-27 17:51:[address] [facility] POCT-GLUCOSE METER 2021-06-27 15:02:00 RussoLogan [facility] POCT-GLUCOSE METER 2021-06-27 12:08:00 RussoLogan [facility] POCT-GLUCOSE METER 2021-06-27 08:23:00 Logan Russo [facility] SARS-COV2/RT-PCR ([facility] & 2021-06-27 04:13:00 [facility] CBC (HEMOGRAM ONLY) 2021-06-27 04:08:[address] [facility] BASIC METABOLIC PANEL (7) 2021-06-27 04:08:[address] [facility] MAGNESIUM 2021-06-27 04:08:00 [facility] 2021-06-27 04:08:00 Davion [facility] APTT 2021-06-27 04:08:00 Abel Hernandez [facility] PROTHROMBIN TIME/INR 2021-06-27 04:08:00 Abel Hernandez [facility] XR CHEST 1 VIEW PORTABLE 2021-06-27 03:58:00 Martinez Ricardo [facility] / BEDSIDE [facility] POCT-GLUCOSE METER 2021-06-26 20:59:00 Russo, Logan Vaca [facility] HEMODIALYSIS INPATIENT 2021-06-26 19:13:00 Jersey Costello Wilner [facility] POCT-GLUCOSE METER 2021-06-26 18:55:00 Russo, Logan Vaca [facility] HEMOGLOBIN AND HEMATOCRIT 2021-06-26 11:31:00 Dannielle Erwin [facility] POCT-GLUCOSE METER 2021-06-26 11:15:00 Russo, Logan Vaca [facility] POCT-GLUCOSE METER 2021-06-26 09:16:00 Russo, Logan Vaca [facility] LASER EXTRACTION,LEAD 2021-06-26 07:30:00 Krzysztof Dodd [facility] TRANSFUSE LEUKO-REDUCED 2021-06-26 06:15:00 Martinez Ricardo [facility] RED BLOOD CELLS [facility] PREPARE LEUKO-REDUCED RBC 2021-06-26 06:01:[address] [facility] CBC (HEMOGRAM ONLY) 2021-06-26 03:25:00 [facility] BASIC METABOLIC PANEL (7) 2021-06-26 03:25:[address] [facility] MAGNESIUM 2021-06-26 03:25:[address] [facility] PHOSPHORUS 2021-06-26 03:25:00 Davion [facility] APTT 2021-06-26 03:25:00 Abel Hernandez [facility] PROTHROMBIN TIME/INR 2021-06-26 03:25:00 Abel Hernandez [facility] XR CHEST 1 VIEW PORTABLE 2021-06-26 01:25:00 Martinez Ricardo [facility] / BEDSIDE [facility] POCT-GLUCOSE METER 2021-06-25 21:46:00 Logan Russo [facility] TYPE AND SCREEN, 2021-06-25 18:55:00 Krzysztof Dodd [facility] IR TUNNELED CATHETER 2021-06-25 17:45:00 Gurinder Nash [facility] POCT-GLUCOSE METER 2021-06-25 11:18:00 Logan Russo [facility] ECG 12-LEAD 2021-06-25 09:57:06 Unknown, Hl7 [facility] ECG 12-LEAD 2021-06-25 09:57:06 Unknown, Hl7 [facility] ECG 12-LEAD 2021-06-25 09:56:17 Unknown, 7 [facility] CBC (HEMOGRAM ONLY) 2021-06-25 02:56:[address] [facility] BASIC METABOLIC PANEL (7) 2021-06-25 02:56:[address] [facility] MAGNESIUM 2021-06-25 02:56:[address] [facility] PHOSPHORUS 2021-06-25 02:56:00 Davion [facility] APTT 2021-06-25 02:56:00 MaryAbel hernandez [facility] PROTHROMBIN TIME/INR 2021-06-25 02:56:00 Abel Hernandez [facility] XR CHEST 1 VIEW PORTABLE 2021-06-25 02:31:00 Martinez Ricardo [facility] / BEDSIDE [facility] POCT-GLUCOSE METER 2021-06-24 22:02:00 Logan Russo [facility] XR ABDOMEN / KUB 1 VIEW 2021-06-24 18:29:00 Gurinder Nash [facility] POCT-GLUCOSE METER 2021-06-24 16:07:00 Logan Russo [facility] POCT-GLUCOSE METER 2021-06-24 12:26:00 Logan Russo [facility] HEMODIALYSIS INPATIENT 2021-06-24 11:25:03 Wilner Aponte [facility] POCT-GLUCOSE METER 2021-06-24 08:28:00 Logan Russo [facility] CBC (HEMOGRAM ONLY) 2021-06-24 03:01:[address] [facility] BASIC METABOLIC PANEL (7) 2021-06-24 03:01:[address] [facility] MAGNESIUM 2021-06-24 03:01:[address] [facility] PHOSPHORUS 2021-06-24 03:01:00 Davion [facility] APTT 2021-06-24 03:01:00 Mary Abel [facility] PROTHROMBIN TIME/INR 2021-06-24 03:01:00 Abel Hernandez [facility] XR CHEST 1 VIEW PORTABLE 2021-06-24 00:32:00 Martinez Ricardo [facility] / BEDSIDE [facility] POCT-GLUCOSE METER 2021-06-23 20:56:00 Logan Russo [facility] POCT-GLUCOSE METER 2021-06-23 16:10:00 Logan Russo [facility] BASIC METABOLIC PANEL (7) 2021-06-23 12:59:00 Omaira Manzo [facility] POCT-GLUCOSE METER 2021-06-23 11:20:00 Logan Russo [facility] POCT-GLUCOSE METER 2021-06-23 07:29:00 Logan Russo [facility] BASIC METABOLIC PANEL (7) 2021-06-23 04:49:00 Omaira Manzo [facility] MAGNESIUM 2021-06-23 04:49:[address] [facility] PHOSPHORUS 2021-06-23 04:49:00 Davion [facility] CBC (HEMOGRAM ONLY) 2021-06-23 02:41:[address] [facility] APTT 2021-06-23 02:41:00 MaryAbel hernandez [facility] PROTHROMBIN TIME/INR 2021-06-23 02:41:00 MaryAbel hernandez [facility] XR CHEST 1 VIEW PORTABLE 2021-06-23 01:19:00 Martinez Ricardo [facility] / BEDSIDE [facility] POCT-GLUCOSE METER 2021-06-22 22:11:00 RussoLogan [facility] POCT-GLUCOSE METER 2021-06-22 18:02:00 RussoLogan [facility] 2D ECHO W/ DOPPLER 2021-06-22 15:55:38 Lupis Erwin CH, I [facility] (CW/PW/COLOR) [facility] BASIC METABOLIC PANEL (7) 2021-06-22 14:30:00 Omaiar Manzo [facility] POCT-GLUCOSE METER 2021-06-22 12:25:00 Logan Russo [facility] HEMODIALYSIS INPATIENT 2021-06-22 11:44:15 Wilner Aponte [facility] OXYGEN SATURATION, 2021-06-22 10:35:00 Lupis Erwin CH, I [facility] BASIC METABOLIC PANEL (7) 2021-06-22 05:37:00 Omaira Manzo [facility] CBC (HEMOGRAM ONLY) 2021-06-22 01:34:[address] [facility] APTT 2021-06-22 01:34:00 MaryAbel hernandez [facility] PROTHROMBIN TIME/INR 2021-06-22 01:34:00 Abel Hernandez [facility] BASIC METABOLIC PANEL (7) 2021-06-22 01:33:00 Omaira Manzo [facility] MAGNESIUM 2021-06-22 01:33:00 [facility] 2021-06-22 01:33:00 [facility] 1 VIEW PORTABLE 2021-06-22 01:05:00 Davion [facility] POCT-GLUCOSE METER 2021-06-21 21:09:00 RussoLogan [facility] POCT-GLUCOSE METER 2021-06-21 18:58:00 RussoLogan [facility] POCT-GLUCOSE METER 2021-06-21 13:30:00 RussoLogan [facility] BASIC METABOLIC PANEL (7) 2021-06-21 13:29:00 Omaira Manzo [facility] PREPARE LEUKO-REDUCED RBC 2021-06-21 03:28:00 Derick Carver Si [facility] BASIC METABOLIC PANEL (7) 2021-06-21 03:21:00 Omaira Manzo [facility] MAGNESIUM 2021-06-21 03:21:[address] [facility] PHOSPHORUS 2021-06-21 03:21:[address] [facility] CBC (HEMOGRAM ONLY) 2021-06-21 03:21:00 [facility] 2021-06-21 03:21:00 Abel Hernandez [facility] PROTHROMBIN TIME/INR 2021-06-21 03:21:00 Abel Hernandez [facility] XR CHEST 1 VIEW PORTABLE 2021-06-21 01:34:[address] [facility] PREPARE LEUKO-REDUCED RBC 2021-06-20 23:54:00 Art Jiménez [facility] BASIC METABOLIC PANEL (7) 2021-06-20 17:40:00 Omaira Manzo [facility] POCT-GLUCOSE METER 2021-06-20 13:33:00 RussoLogan [facility] POCT-GLUCOSE METER 2021-06-20 06:06:00 Logan Russo [facility] SARS-COV2/RT-PCR ([facility] & 2021-06-20 01:20:00 Davion [facility] REF LABS) [facility] BLOOD GAS, ARTERIAL 2021-06-20 01:20:00 MaryAbel hernandez [facility] BASIC METABOLIC PANEL (7) 2021-06-20 01:19:00 SravanmaSamia santiago I [facility] MAGNESIUM 2021-06-20 01:19:[address] [facility] PHOSPHORUS 2021-06-20 01:19:[address] [facility] CBC (HEMOGRAM ONLY) 2021-06-20 01:19:00 Davion [facility] APTT 2021-06-20 01:19:00 Mary [facility] PROTHROMBIN TIME/INR 2021-06-20 01:19:00 Mary [facility] CALCIUM, IONIZED 2021-06-20 01:19:00 Jersey Costello [facility] XR CHEST 1 VIEW PORTABLE 2021-06-20 01:05:00 [facility] PREPARE PLATELETS 2021-06-19 23:55:00 Janelle Kuo [facility] PREPARE RBC 2021-06-19 23:54:00 Logan Russo [facility] MAGNESIUM 2021-06-19 21:32:00 [facility], ART[facility] 2021-06-19 21:32:00 Jersey Costello Wilner [facility] PHOSPHORUS 2021-06-19 21:32:00 Jersey Costello Wilner [facility] BASIC METABOLIC PANEL (7) 2021-06-19 21:32:00 Omaira Manzo [facility] POCT-GLUCOSE METER 2021-06-19 17:55:00 Logan Russo [facility] BLOOD GAS, ARTERIAL 2021-06-19 12:39:00 Mary, [facility] BLOOD GAS, ARTERIAL 2021-06-19 11:13:00 Mary, Abel [facility] POCT-GLUCOSE METER 2021-06-19 08:41:00 Russo, Logan Vaca [facility] TRANSFUSE LEUKO-REDUCED 2021-06-19 07:45:00 Derick Carver [facility] RED BLOOD CELLS [facility] BASIC METABOLIC PANEL (7) 2021-06-19 02:14:00 [facility] MAGNESIUM 2021-06-19 02:14:00 Ahmad, [facility] PHOSPHORUS 2021-06-19 02:14:00 Ahmad, [facility] CBC (HEMOGRAM ONLY) 2021-06-19 02:14:[address] [facility] APTT 2021-06-19 02:14:00 Mary, [facility] PROTHROMBIN TIME/INR 2021-06-19 02:14:00 Mary, [facility] BLOOD GAS, ARTERIAL 2021-06-19 02:14:00 Mary, [facility] OXYGEN SATURATION, 2021-06-19 02:14:00 Art Jiménez [facility] XR CHEST 1 VIEW PORTABLE 2021-06-19 01:52:00 Martinez Ricardo [facility] / BEDSIDE [facility] POCT-GLUCOSE METER 2021-06-18 23:55:00 Russo, Logan Vaca [facility] PREPARE LEUKO-REDUCED RBC 2021-06-18 23:55:00 Shiva Jeter [facility] POCT-GLUCOSE METER 2021-06-18 23:03:00 Russo, Logan Vaca [facility] POCT-GLUCOSE METER 2021-06-18 21:14:00 Russo, Logan Vaca [facility] POCT-GLUCOSE METER 2021-06-18 18:54:00 Russo, Logan Vaca [facility] CBC (HEMOGRAM ONLY) 2021-06-18 18:15:00 MaryAbel hernandez [facility] BASIC METABOLIC PANEL (7) 2021-06-18 18:15:00 MaryAbel hernandez [facility] APTT 2021-06-18 18:15:00 MaryAbel [facility] PROTHROMBIN TIME/INR 2021-06-18 18:15:00 Mary, Abel Rey [facility] LACTIC ACID, ARTERIAL 2021-06-18 18:15:00 Mary, Abel Rey CH I [facility] PHOSPHORUS 2021-06-18 18:15:00 Mary, Abel Rey [facility] MAGNESIUM 2021-06-18 18:15:00 Mary Abelscarlett Rey [facility] BLOOD GAS, ARTERIAL 2021-06-18 18:15:00 MaryAbel [facility] OXYGEN SATURATION, 2021-06-18 18:15:00 MaryAbel [facility] RRL CRITICAL LABS 2021-06-18 16:04:00 [facility] (ABG,NA,K,H&H,GLUCOSE) Medical C enter CALCIUM, IONIZED 2021-06-18 16:04:00 [facility] Abel [facility] BLOOD GAS, ARTERIAL 2021-06-18 16:04:00 [facility] Abel [facility] SODIUM NA-STAT LAB 2021-06-18 16:04:00 Mary [facility] POTASSIUM-STAT LAB 2021-06-18 16:04:00 Mary [facility] GLUCOSE-STAT LAB 2021-06-18 16:04:00 [facility] HGB/HCT (H&H) - STAT LAB 2021-06-18 16:04:00 [facility] PREPARE PLASMA 2021-06-18 15:44:00 Logan Russo [facility] XR CHEST 1 VIEW PORTABLE 2021-06-18 15:33:00 Abel Hernandez [facility] / BEDSIDE Medical Center OXYGEN SATURATION, 2021-06-18 15:03:00 Abel Hernandez [facility] SURGICALLY OBTAINED 2021-06-18 15:01:35 Logan Russo [facility] CULTURE + GRAM STAIN Medical Kwesi ter FUNGUS CULTURE + SMEAR 2021-06-18 15:01:35 Logan Russo [facility] [employer] CULTURE + SMEAR 2021-06-18 15:01:35 Logan Russo [facility] (NON-SPUTUM) [facility] HEMOGLOBIN AND HEMATOCRIT 2021-06-18 14:58:00 Luh Cosby CH I [facility] CBC W/PLT COUNT & AUTO 2021-06-18 14:58:00 Abel Hernandez [facility] CBC W/PLT COUNT & AUTO 2021-06-18 14:58:00 Abel Hernandez [facility] (CELLAVISION MANUAL DIFF) 2021-06-18 14:58:00 Abel Hernandez [facility] BASIC METABOLIC PANEL (7) 2021-06-18 14:57:00 Abel Hernandez [facility] MAGNESIUM 2021-06-18 14:57:00 Abel Hernandez [facility] CALCIUM, IONIZED 2021-06-18 14:57:00 Abel Hernandez [facility] PROTHROMBIN TIME/INR 2021-06-18 14:57:00 Abel Hernandez [facility] APTT 2021-06-18 14:57:00 Abel Hernandez [facility] PHOSPHORUS 2021-06-18 14:57:00 Abel Hernandez [facility] POTASSIUM 2021-06-18 14:57:00 Abel Hernandez [facility] PREPARE PLATELETS 2021-06-18 14:20:00 Janelle Kuo [facility] PLATELET COUNT 2021-06-18 13:12:54 Asad Santana [facility] POCT-ACT 2021-06-18 13:08:00 Logan Russo [facility] RRL CRITICAL LABS 2021-06-18 13:05:56 [place], [facility] (ABG,NA,K,H&H,GLUCOSE) [facility] C enter CALCIUM, IONIZED 2021-06-18 13:05[facility] 2021-06-18 13:05[facility]56 [facility] 2021-06-18 13:05:56 [facility] PROTHROMBIN TIME/INR 2021-06-18 13:05:56 [facility] BLOOD GAS, ARTERIAL 2021-06-18 13:05:56 [place] [facility] SODIUM NA-STAT LAB 2021-06-18 13:05:56 [facility] POTASSIUM-STAT LAB 2021-06-18 13:05:56 [facility] GLUCOSE-STAT LAB 2021-06-18 13:05:56 [facility] HGB/HCT (H&H) - STAT LAB 2021-06-18 13:05:56 Asad Santana [facility] TRANSFUSE LEUKO-REDUCED 2021-06-18 12:46:00 Asad Santana [facility] PLATELETS [facility] TRANSFUSE LEUKO-REDUCED 2021-06-18 12:45:00 [facility] PLATELETS [facility] RRL CRITICAL LABS 2021-06-18 12:22:[address] [facility] (ABG,NA,K,H&H,GLUCOSE) Medical C enter BLOOD GAS, ARTERIAL 2021-06-18 12:22:57 Logan Russo [facility] SODIUM NA-STAT LAB 2021-06-18 12:22:57 Logan Russo [facility] POTASSIUM-STAT LAB 2021-06-18 12:22:57 Beth Logan Vaca [facility] GLUCOSE-STAT LAB 2021-06-18 12:22:57 Logan Russo [facility] HGB/HCT (H&H) - STAT LAB 2021-06-18 12:22:57 Logan Russo [facility] POCT-ACT 2021-06-18 12:20:00 Logan Russo [facility] RRL CRITICAL LABS 2021-06-18 12:17:57 Beth Logan Vaca [facility] (ABG,NA,K,H&H,GLUCOSE) [facility] C enter BLOOD GAS, ARTERIAL 2021-06-18 12:17:57 Logan Russo [facility] SODIUM NA-STAT LAB 2021-06-18 12:17:57 Beth Logan Vaca [facility] POTASSIUM-STAT LAB 2021-06-18 12:17:57 Beth Logan Nola [facility] GLUCOSE-STAT LAB 2021-06-18 12:17:57 Beth Logan Vaca [facility] HGB/HCT (H&H) - STAT LAB 2021-06-18 12:17:57 Logan Russo [facility] MISCELLANEOUS LAB ORDER 2021-06-18 11:59:38 [facility] PLATELET COUNT 2021-06-18 11:59:38 Asad Santana [facility] FIBRINOGEN 2021-06-18 11:59:38 Max [facility] PROTHROMBIN TIME/INR 2021-06-18 11:59:38 Asad Santana [facility] APTT 2021-06-18 11:59:38 Max [facility] POCT-ACT 2021-06-18 11:43:00 Logan Russo [facility] TISSUE EXAM 2021-06-18 11:41:00 Logan Russo [facility] RRL CRITICAL LABS 2021-06-18 11:40:27 Russo, Logan Vaca [facility] (ABG,NA,K,H&H,GLUCOSE) Medical C enter BLOOD GAS, ARTERIAL 2021-06-18 11:40:27 Russo, [facility] SODIUM NA-STAT LAB 2021-06-18 11:40:27 Russo, Logan Vaca [facility] POTASSIUM-STAT LAB 2021-06-18 11:40:27 Russo, Logan [facility] GLUCOSE-STAT LAB 2021-06-18 11:40:27 Russo, [facility] HGB/HCT (H&H) - STAT LAB 2021-06-18 11:40:27 Beth [facility] POCT-ACT 2021-06-18 11:15:00 Beth [facility] RRL CRITICAL LABS 2021-06-18 11:13:46 Beth Logan Vaca [facility] (ABG,NA,K,H&H,GLUCOSE) Medical C enter BLOOD GAS, ARTERIAL 2021-06-18 11:13:46 Beth [facility] SODIUM NA-STAT LAB 2021-06-18 11:13:[address] [facility] POTASSIUM-STAT LAB 2021-06-18 11:13:[address] [facility] GLUCOSE-STAT LAB 2021-06-18 11:13:46 Beth [facility] HGB/HCT (H&H) - STAT LAB 2021-06-18 11:13:46 Beth [facility] POCT-ACT 2021-06-18 10:47:00 Beth [facility] RRL CRITICAL LABS 2021-06-18 10:45:20 [facility] (ABG,NA,K,H&H,GLUCOSE) Medical C enter BLOOD GAS, ARTERIAL 2021-06-18 10:45:20 Beth [facility] SODIUM NA-STAT LAB 2021-06-18 10:45:20 Russo, Logan Vaca [facility] POTASSIUM-STAT LAB 2021-06-18 10:45:20 Russo, Logan Vaca [facility] GLUCOSE-STAT LAB 2021-06-18 10:45:20 Russo, Logan Vaca [facility] HGB/HCT (H&H) - STAT LAB 2021-06-18 10:45:20 Russo, Logan Vaca [facility] POCT-ACT 2021-06-18 10:14:00 Russo, Logan Vaca [facility] ANESTHESIA NIMCO 2021-06-18 10:03:35 Lydia Marmolejo [facility] TRANSFUSE LEUKO-REDUCED 2021-06-18 09:26:00 Asad Santana [facility] RED BLOOD CELLS [facility] RRL CRITICAL LABS 2021-06-18 08:54:20 Max [facility] (ABG,NA,K,H&H,GLUCOSE) [facility] enter CALCIUM, IONIZED 2021-06-18 08:54:20 Max [facility] BLOOD GAS, ARTERIAL 2021-06-18 08:54:20 Max [facility] SODIUM NA-STAT LAB 2021-06-18 08:54:20 [facility] POTASSIUM-STAT LAB 2021-06-18 08:54:20 Max [facility] GLUCOSE-STAT LAB 2021-06-18 08:54:20 Max [facility] HGB/HCT (H&H) - STAT LAB 2021-06-18 08:54:20 Asad Santana [facility] REPAIR,MITRAL VALVE 2021-06-18 07:38:00 Russo, Logan [facility] VALVULOPLASTY,TRICUSPID 2021-06-18 07:38:00 Russo, Logan Vaca [facility] STERNOTOMY 2021-06-18 07:38:00 Russo, Logan Vaca [facility] NIMCO 2021-06-18 07:38:00 RussoLogan [facility] CBC W/PLT COUNT & AUTO 2021-06-18 05:37:00 [facility] BASIC METABOLIC PANEL (7) 2021-06-18 05:37:00 sarah [facility] MAGNESIUM 2021-06-18 05:37:[address] [facility] PHOSPHORUS 2021-06-18 05:37:[address] [facility] CBC W/PLT COUNT & AUTO 2021-06-18 05:37:00 [facility] TRANSFUSE LEUKO-REDUCED 2021-06-17 23:31:00 Shiva Jeter [facility] RED BLOOD CELLS [facility] POCT-GLUCOSE METER 2021-06-17 21:28:00 [facility] HEMOGLOBIN AND HEMATOCRIT 2021-06-17 21:16:00 [facility] CT ABDOMEN/PELVIS WITHOUT 2021-06-17 17:07:00 [facility] IV CONTRAST [facility] XR ABDOMEN / KUB 1 VIEW 2021-06-17 16:15:00 [facility] MAGNESIUM 2021-06-17 15:48:00 [facility] COMPREHENSIVE METABOLIC 2021-06-17 15:48:00 [facility] PANEL [facility] HEMOGLOBIN A1C 2021-06-17 15:48:00 [facility] CBC W/PLT COUNT & AUTO 2021-06-17 15:48:00 [facility] PROTHROMBIN TIME/INR 2021-06-17 15:48:00 [facility] APTT 2021-06-17 15:48:00 [facility] TYPE AND SCREEN, 2021-06-17 15:48:00 Tino [facility] AUTOMATED [facility] CBC W/PLT COUNT & AUTO 2021-06-17 15:48:00 [facility] DIFFERENTIAL [facility] ECG 12-LEAD 2021-06-17 15:31:19 [facility] HEMODIALYSIS INPATIENT 2021-06-17 08:22:41 Wilner Aponte [facility] CBC W/PLT COUNT & AUTO 2021-06-17 04:15:00 Ahmapamela [facility] BASIC METABOLIC PANEL (7) 2021-06-17 04:15:00 AhmadSamia [facility] MAGNESIUM 2021-06-17 04:15:[address] [facility] PHOSPHORUS 2021-06-17 04:15:[address] [facility] CBC W/PLT COUNT & AUTO 2021-06-17 04:15:00 Ahsarah [facility] POCT-GLUCOSE METER 2021-06-16 23:59:00 [facility] POCT-[facility]SE METER 2021-06-16 18:00:00 [facility] [place] CEREBRAL 4 VESSEL 2021-06-16 12:55:00 Eloy Portillo [facility] ANGIOGRAM [facility] PACEMAKER CHECK WITH 2021-06-16 10:00:06 Rosa Maria [facility] REPROGRAMMING [facility] MR BRAIN WITHOUT IV 2021-06-16 09:57:00 Ladarius Jc [facility] CONTRAST [facility] nter PACEMAKER CHECK WITH 2021-06-16 09:31:48 Rosa Maria [facility] REPROGRAMMING [facility] POCT-GLUCOSE METER 2021-06-16 07:18:00 [facility] CBC W/PLT COUNT & AUTO 2021-06-16 04:21:00 Ahmapamela [facility] BASIC METABOLIC PANEL (7) 2021-06-16 04:21:00 Ahmad, [facility] MAGNESIUM 2021-06-16 04:21:00 Ahmad, [facility] PHOSPHORUS 2021-06-16 04:21:00 Ahmad, [facility] CBC W/PLT COUNT & AUTO 2021-06-16 04:21:00 Ahsarah, [facility] POCT-GLUCOSE METER 2021-06-15 21:28:00 Harjeet [facility] CTA HEART CORONARY WITH 2021-06-15 18:20:00 Roni, [facility] CALCIUM EVALUATION Medical Cente r WITHOUT FFR HEPATIC FUNCTION PANEL 2021-06-15 15:18:00 Harjeet [facility] ABORH, MANUAL 2021-06-15 05:54:00 Kelli Merrill [facility] PT/APTT 2021-06-15 04:16:00 Ahmad, [facility] CBC W/PLT COUNT & AUTO 2021-06-15 04:16:00 sarah, [facility] BASIC METABOLIC PANEL (7) 2021-06-15 04:16:00 Ahmad, [facility] MAGNESIUM 2021-06-15 04:16:00 Ahmad, [facility] PHOSPHORUS 2021-06-15 04:16:00 Ahmad, [facility] TYPE AND SCREEN, 2021-06-15 04:16:00 Ahmad, [facility] CBC W/PLT COUNT & AUTO 2021-06-15 04:16:00 Ahmad, [facility] POCT-GLUCOSE METER 2021-06-14 11:09:[address] [facility] Ce nter POCT-GLUCOSE METER 2021-06-14 07:31:[address] [facility] EEG 12-26 HR CONTINUOUS 2021-06-14 06:25:00 Blackraheelperla Jc [facility] MONITORING WITH VIDEO [facility] CBC W/PLT COUNT & AUTO 2021-06-14 04:05:00 Samia Tamayo [facility] BASIC METABOLIC PANEL (7) 2021-06-14 04:05:00 Samia Tamayo [facility] MAGNESIUM 2021-06-14 04:05:00 AhmaSamia santiago [facility] PHOSPHORUS 2021-06-14 04:05:00 AhmaSamia santiago [facility] CBC W/PLT COUNT & AUTO 2021-06-14 04:05:[address] [facility] POCT-GLUCOSE METER 2021-06-13 17:10:00 [facility] nter POCT-GLUCOSE METER 2021-06-13 12:44:00 [facility] nter HEPARIN ANTIBODY 2021-06-13 11:25:00 Thom Almodovar [facility] EEG 12-26 HR CONTINUOUS 2021-06-13 11:06:00 Pamela Orta [facility] MONITORING WITH VIDEO Medical Ce nter IRON, TIBC, % SAT. 2021-06-13 08:28:00 [facility] r FERRITIN 2021-06-13 08:28:00 Claudette Salmeron [facility] POCT-GLUCOSE METER 2021-06-13 08:27:00 Mary Kate Gracia [facility] CBC W/PLT COUNT & AUTO 2021-06-13 03:36:00 Samia Tamayo [facility] BASIC METABOLIC PANEL (7) 2021-06-13 03:36:00 Samia Tamayo [facility] MAGNESIUM 2021-06-13 03:36:[address] [facility] PHOSPHORUS 2021-06-13 03:36:00 Samia Tamayo [facility] CBC W/PLT COUNT & AUTO 2021-06-13 03:36:[address] [facility] POCT-GLUCOSE METER 2021-06-13 01:48:00 Samia Breecata SteeleEmmett [facility] HEMODIALYSIS INPATIENT 2021-06-12 23:02:[address] [facility] POCT-GLUCOSE METER 2021-06-12 18:54:00 Mary Kate Gracia [facility] SARS-COV2/RT-PCR ([facility] & 2021-06-12 17:07:00 Martinez Ricardo [facility] REF LABS) [facility] EEG AWAKE AND DROWSY 2021-06-12 12:20:00 Thom Almodovar [facility] CT BRAIN WITHOUT IV 2021-06-12 08:15:00 Angel Saenz [facility] POCT-GLUCOSE METER 2021-06-12 07:20:00 Samia Breecata SteeleEmmett [facility] CTA BRAIN 2021-06-12 01:53:00 Janina [facility] CTA CAROTID 2021-06-12 01:53:00 Janina [facility] CT BRAIN WITHOUT IV 2021-06-12 01:31:00 Janina [facility] CBC W/PLT COUNT & AUTO 2021-06-12 01:07:00 Samia Tamayo [facility] HIGH SENSITIVITY TROPONIN 2021-06-12 01:07:00 Mary Kate Gracia I [facility] LACTIC ACID, VENOUS 2021-06-12 01:07:00 [facility] PROTHROMBIN TIME/INR 2021-06-12 01:07:00 Bree Graciacata Emmett [facility] CBC W/PLT COUNT & AUTO 2021-06-12 01:07:00 Anshul Acharya [facility] BASIC METABOLIC PANEL (7) 2021-06-12 00:49:00 Samia Tamayo [facility] I [facility] MAGNESIUM 2021-06-12 00:49:00 Samia Tamayo [facility] PHOSPHORUS 2021-06-12 00:49:00 Ahsarah, Samia [facility] ECG 12-LEAD 2021-06-12 00:43:57 Unknown, Hl7 [facility] ECG 12-LEAD 2021-06-12 00:43:57 Unknown, 7 [facility] ECG 12-LEAD 2021-06-12 00:40:07 Unknown, 7 [facility] ECG 12-LEAD 2021-06-12 00:39:50 Unknown, 7 [facility] ECG 12-LEAD 2021-06-12 00:39:50 Unknown, [address] POCT-GLUCOSE METER 2021-06-12 00:35:00 Mary Kate Gracia [facility] POCT-GLUCOSE METER 2021-06-11 20:12:00 Samia [facility] POCT-GLUCOSE METER 2021-06-11 16:12:00 [facility] BLOOD CULTURE 2021-06-11 11:47:00 Jocelyne Alejandre [facility] POCT-GLUCOSE METER 2021-06-11 11:17:00 Mary Kate Gracia [facility] PACEMAKER CHECK 2021-06-11 10:59:25 Hernandez James [facility] POCT-GLUCOSE METER 2021-06-11 06:33:00 Mary Kate Gracia [facility] BLOOD CULTURE 2021-06-11 04:03:00 Jessica John [facility] CBC W/PLT COUNT & AUTO 2021-06-11 04:03:00 Samia Tamayo [facility] BASIC METABOLIC PANEL (7) 2021-06-11 04:03:00 Samia Tamayo CH I [facility] MAGNESIUM 2021-06-11 04:03:00 Ahmapamela Samia [facility] PHOSPHORUS 2021-06-11 04:03:00 AhSamia smith [facility] CBC W/PLT COUNT & AUTO 2021-06-11 04:03:00 Baileyzenia Anshul Tyrel [facility] POCT-BLOOD GASES, VENOUS 2021-06-10 22:25:00 [facility] POCT-SODIUM 2021-06-10 22:25:00 Samia [facility] POCT-POTASSIUM 2021-06-10 22:25:00 Samia [facility] POCT-HEMOGLOBIN 2021-06-10 22:25:00 Samia [facility] POCT-HEMATOCRIT 2021-06-10 22:25:00 Samia [facility] POCT-GLUCOSE 2021-06-10 22:25:00 [facility] CBC W/PLT COUNT & AUTO 2021-06-10 22:23:00 Jessica John [facility] CBC W/PLT COUNT & AUTO 2021-06-10 22:23:00 Jessica John [facility] XR CHEST 1 VIEW PORTABLE 2021-06-10 22:14:00 Jessica John [facility] / BEDSIDE [facility] BLOOD CULTURE 2021-06-10 22:08:00 Jessica John [facility] LACTIC ACID, VENOUS 2021-06-10 22:07:00 Jessica John [facility] POCT-GLUCOSE METER 2021-06-10 21:20:00 [facility] HEMODIALYSIS INPATIENT 2021-06-10 17:49:00 Wilner Aponte [facility] POCT-GLUCOSE METER 2021-06-10 16:22:00 [facility] POCT-GLUCOSE METER 2021-06-10 11:29:00 Mary Kate Gracia [facility] POCT-GLUCOSE METER 2021-06-10 07:27:00 [facility] CBC W/PLT COUNT & AUTO 2021-06-10 04:36:00 Ahmad [facility] BASIC METABOLIC PANEL (7) 2021-06-10 04:36:00 Ahmad, [facility] MAGNESIUM 2021-06-10 04:36:00 Ahmad, [facility] PHOSPHORUS 2021-06-10 04:36:00 Ahmad, [facility] CBC W/PLT COUNT & AUTO 2021-06-10 04:36:00 Anshul Acharya [facility] POCT-GLUCOSE METER 2021-06-09 21:22:00 Haj-Isakilil [facility] POCT-GLUCOSE METER 2021-06-09 16:16:00 Haj-Ismail, [facility] 2D ECHO W/ DOPPLER 2021-06-09 12:21:49 Rony Shin [facility] (CW/PW/COLOR) [facility] TRANSESOPHAGEAL ECHO 2021-06-09 09:04:[address] [facility] POCT-GLUCOSE METER 2021-06-09 06:11:00 Haj-Isherbert [facility] CBC W/PLT COUNT & AUTO 2021-06-09 03:34:00 Ahmapamela [facility] BASIC METABOLIC PANEL (7) 2021-06-09 03:34:00 Ahmad, [facility] MAGNESIUM 2021-06-09 03:34:00 Ahmad, [facility] PHOSPHORUS 2021-06-09 03:34:00 Ahmad, [facility] CBC W/PLT COUNT & AUTO 2021-06-09 03:34:00 Anshul Acharya [facility] POCT-GLUCOSE METER 2021-06-08 21:03:00 Haj-Ismail [facility] HEMODIALYSIS INPATIENT 2021-06-08 15:21:58 Jersey Costello [facility] COLOR-FLOW MAPPING 2021-06-08 13:42:25 Hill [facility] CONT WAVE PULSED DOPPLER 2021-06-08 13:42:25 Hill [facility] PTH, INTACT 2021-06-08 10:29:00 Jersey Costello [facility] HEPATITIS B SURFACE 2021-06-08 10:29:00 Real Delgado [facility] HEPATITIS PANEL, ACUTE 2021-06-08 10:29:00 León [facility] POCT-GLUCOSE METER 2021-06-08 06:59:00 Janelle Kuo [facility] CBC W/PLT COUNT & AUTO 2021-06-08 05:00:00 Samia Tamayo [facility] BASIC METABOLIC PANEL (7) 2021-06-08 05:00:00 Samia Tamayo CH, I [facility] MAGNESIUM 2021-06-08 05:00:[address] [facility] PHOSPHORUS 2021-06-08 05:00:[address] [facility] PROTHROMBIN TIME/INR 2021-06-08 05:00:00 Anshul Acharya [facility] VITAMIN B12 2021-06-08 05:00:00 Anshul Acharya [facility] FERRITIN 2021-06-08 05:00:00 [facility]ON, TIBC, % SAT. 2021-06-08 05:00:00 Jersey Costello [facility] (WITHOUT FERRITIN) [facility]IT[facility] D, 25-HYDROXY 2021-06-08 05:00:00 Jersey Costello [facility] CBC W/PLT COUNT & AUTO 2021-06-08 05:00:00 Anshul Acharya [facility] US ABDOMEN LIMITED 2021-06-08 04:51:00 Anshul Acharya [facility] SARS-COV2/RT-PCR ([facility] & 2021-06-07 23:43:00 Angel Saenz [facility] REF LABS) [facility] POCT-GLUCOSE METER 2021-06-07 23:11:00 Janelle Kuo [facility] ECG 12-LEAD 2021-06-07 23:06:38 Unknown, Hl7 [facility] ECG 12-LEAD 2021-06-07 23:06:38 Unknown, Hl7 [facility] BLOOD CULTURE 2021-06-07 21:48:00 Anshul Acharya [facility] BLOOD CULTURE 2021-06-07 21:41:00 Anshul Acharya [facility] CBC W/PLT COUNT & AUTO 2021-06-07 21:41:00 Anshul Acharya [facility] COMPREHENSIVE METABOLIC 2021-06-07 21:41:00 Anshul Acharya [facility] VANCOMYCIN LEVEL, RANDOM 2021-06-07 21:41:00 Anshul Acharya [facility] CBC W/PLT COUNT & AUTO 2021-06-07 21:41:00 Anshul Acharya [facility] XR CHEST 1 VIEW PORTABLE 2021-06-07 19:59:00 Anshul Acharya [facility] / BEDSIDE [facility] VASCULAR DIAGRAM -SCAN 2021-06-07 00:00:00 Provider, Judah [facility] CARDIAC CATH REPORT - 2021-06-07 00:00:00 Provider, Judah [facility] ARRYTHMIA IMPLANT REPORT 2021-06-07 00:00:00 ProviderJudah [facility] POCT GLUCOSE (AUTOMATED) 2021-05-22 23:19:00 Neil Thomas [facility] POCT GLUCOSE (AUTOMATED) 2021-05-22 17:36:00 Neil Thomas [facility] POCT GLUCOSE (AUTOMATED) 2021-05-22 13:43:00 Neil Thomas [facility] BASIC METABOLIC PANEL 2021-05-22 09:37:00 José Miguel Horn [facility] (NA, K, CL, CO2, GLUCOSE, Medica l Branch BUN, CREATININE, CA) CBC WITH DIFF 2021-05-22 09:37:00 José Miguel [facility] GLUCOSE 2021-05-21 23:41:00 Candido Robison [facility] PROTEIN TOTAL 2021-05-21 23:41:00 Ricki [facility] LACTATE DEHYDROGENASE 2021-05-21 23:41:00 Candido Robison [facility] TROPONIN I 2021-05-21 23:41:00 Tameka Mcdaniels [facility] N-TERMINAL PRO-BNP 2021-05-21 23:41:00 José Miguel Horn [facility] POCT GLUCOSE (AUTOMATED) 2021-05-21 23:14:00 Neil Thomas [facility] POCT GLUCOSE (AUTOMATED) 2021-05-21 16:58:00 Neil Thomas [facility] POCT GLUCOSE (AUTOMATED) 2021-05-21 13:47:00 Neil Thomas [facility] XR CHEST 1 VW 2021-05-21 13:06:23 Gt [facility] VITAMIN B12, LEVEL 2021-05-21 12:51:00 Taina Del Real [facility] FOLATE 2021-05-21 12:51:00 Gt becky [facility] TROPONIN I 2021-05-21 12:51:00 Gt [facility] IRON PANEL 2021-05-21 12:51:00 Gt [facility] VITAMIN D, 25-OH 2021-05-21 12:51:00 Gt [facility] FERRITIN SERUM 2021-05-21 09:32:00 Gt [facility] TROPONIN I 2021-05-21 09:32:00 Gt [facility] HEPATIC FUNCTION PANEL 2021-05-21 09:32:00 Gt becky [facility] ([id number]) (ALB,T.PRO,BILI Medical Branch T,BU/BC,ALT,AST,ALK PHOS) BASIC METABOLIC PANEL 2021-05-21 09:32:00 [facility] (NA, K, CL, CO2, GLUCOSE, Medica l Branch BUN, CREATININE, CA) DIFF CONSULT 2021-05-21 09:32:00 Gt [facility] CBC WITH DIFF 2021-05-21 09:32:00 Kory [facility] N-TERMINAL PRO-BNP 2021-05-21 09:32[facility] PO[facility]SE ([facility]OMATED) 2021-05-21 02:22:00 Neil Thomas [facility] XR CHEST 1 VW 2021-05-20 22:21:01 Ricki [facility] POCT GLUCOSE (AUTOMATED) 2021-05-20 22:14:00 Neil Thomas [facility] PH, BODY FLUID 2021-05-20 22:04:00 Ricki [facility] T.PROTEIN BODY FLUID 2021-05-20 22:04:00 Candido Robison [facility] BODY FLUID DIRECT COUNT 2021-05-20 22:04:00 Nemesio [facility] CYTO PLEURAL FLUID 2021-05-20 22:04:00 Candido Robison [facility] LDH TOTAL BODY FLUID 2021-05-20 22:04:00 Holly Redding [facility] AFB CULTURE 2021-05-20 21:50:00 Candido Robison [facility] BODY FLUID 2021-05-20 21:50:00 Ricki [facility] CULTURE(AEROBIC/ANAEROBIC Medica l Branch ) XR CHEST 1 VW 2021-05-20 19:13:56 Ricki [facility] POCT GLUCOSE (AUTOMATED) 2021-05-20 16:59:00 Neil Thomas [facility] POCT GLUCOSE (AUTOMATED) 2021-05-20 13:25:00 Neil Thomas [facility] LACTATE DEHYDROGENASE 2021-05-20 09:50:00 [facility] BASIC METABOLIC PANEL 2021-05-20 09:50:00 Holly Redding [facility] (NA, K, CL, CO2, GLUCOSE, Medica l Branch BUN, CREATININE, CA) PROTHROMBIN TIME / INR 2021-05-20 09:50:00 [facility] PRO-B[facility] 2021-05-20 09:50:00 Tameka Mcdaniels [facility] POCT GLUCOSE (AUTOMATED) 2021-05-20 01:35:00 Neil Thomas [facility] POCT GLUCOSE (AUTOMATED) 2021-05-19 23:08:00 Neil Thomas [facility] POCT GLUCOSE (AUTOMATED) 2021-05-19 17:39:00 Neil Thomas [facility] POCT GLUCOSE (AUTOMATED) 2021-05-19 14:04:00 Neil Thomas [facility] BASIC METABOLIC PANEL 2021-05-19 11:24[facility] K, CL, CO2, GLUCOSE, Medica l Branch BUN, CREATININE, CA) CBC WITH DIFF 2021-05-19 11:24:00 [facility] o [facility] N-TERMINAL PRO-BNP 2021-05-19 11:24:00 [facility] HEPATITIS B SURFACE 2021-05-19 03:18:00 Samantha [facility] ANTIBODY [facility] [place] HEPATITIS B SURFACE 2021-05-19 03:18:00 Samantha [facility] ANTIGEN [facility] [place] POCT GLUCOSE (AUTOMATED) 2021-05-19 03:11:00 Neil Thomas [facility] POCT GLUCOSE (AUTOMATED) 2021-05-18 22:43:00 Neil Thomas [facility] POCT GLUCOSE (AUTOMATED) 2021-05-18 17:46:00 [facility] 2021-05-18 17:04:00 [facility]OLIC PANEL 2021-05-18 15:05:00 Holly Redding [facility] (NA, K, CL, CO2, GLUCOSE, Medica l Branch BUN, CREATININE, CA) POCT GLUCOSE (AUTOMATED) 2021-05-18 13:20:00 William [facility] DISCLOSURE AND CONSENT, 2021-05-18 06:01:00 Doctor Unassigned, N o [facility] MEDICAL AND SURGICAL Name Medical Bra [facility] PROCEDURES POCT GLUCOSE (AUTOMATED) 2021-05-17 22:51:00 William [facility] POCT GLUCOSE (AUTOMATED) 2021-05-17 17:51:00 William [facility] TRANSTHORACIC ECHO (TTE) 2021-05-17 15:04:37 William [facility] POCT GLUCOSE (AUTOMATED) 2021-05-17 14:14:00 William [facility] PHOSPHORUS 2021-05-17 10:03:00 William [facility] MAGNESIUM 2021-05-17 10:03:00 William [facility] BASIC METABOLIC PANEL 2021-05-17 10:03:00 William Chan [facility] (NA, K, CL, CO2, GLUCOSE, Medica l Branch BUN, CREATININE, CA) CBC WITHOUT DIFF 2021-05-17 10:03:00 William [facility] N-TERMINAL PRO-BNP 2021-05-17 10:03:00 William [facility] POCT GLUCOSE (AUTOMATED) 2021-05-16 22:34:00 William [facility] POCT GLUCOSE (AUTOMATED) 2021-05-16 17:41:00 Neil [facility] POCT GLUCOSE (AUTOMATED) 2021-05-16 13:39:00 Neil Thomas [facility] MAGNESIUM 2021-05-16 08:09:00 William [facility] TROPONIN I 2021-05-16 08:09:00 [facility]OLIC PANEL 2021-05-16 08:09:00 Neil Thomas [facility] (NA, K, CL, CO2, GLUCOSE, Medica l Branch BUN, CREATININE, CA) LIPID PANEL ([id number])(TOTAL 2021-05-16 08:09:00 Neil Thomas [facility] CHOLESTEROL, [facility] TRIGLYCERIDES, HDL) CBC WITHOUT DIFF 2021-05-16 08:09:00 [facility] GLYCOSYLATED HEMOGLOBIN 2021-05-16 08:09:00 [facility] PHOSPHORUS 2021-05-16 02:06:00 William [facility] TROPONIN I 2021-05-16 02:06:00 William [facility] POCT GLUCOSE (AUTOMATED) 2021-05-16 02:05:00 Neil [facility] COVID-19 (ID NOW RAPID 2021-05-15 22:31:00 Dangelo Ibrahim [facility] TESTING) Medical Branch LAB ONLY COVID 2021-05-15 22:31:00 Dangelo Ibrahim [facility] INTERPRETATION [facility] XR KNEE <3 VW RIGHT 2021-05-15 22:12:44 Dangelo Ibrahim [facility] Medical [facility] CT CHEST PULMONARY 2021-05-15 22:00:00 Dangelo Ibrahim [facility] ANGIOGRAM Medical Branch XR CHEST 1 VW 2021-05-15 20:32:18 [facility] 2021-05-15 19:37:00 Singer [facility] MAGNESIUM 2021-05-15 19:37:00 Singer [facility] TROPONIN I 2021-05-15 19:37:00 Singer [facility] THYROID STIMULATING 2021-05-15 19:37:00 William Neil [facility] HORMONE [facility] COMP. METABOLIC PANEL 2021-05-15 19:37:00 Dangelo [facility] ([id number]) [facility] CBC WITH DIFF 2021-05-15 19:37:00 Singer [facility] GLYCOSYLATED HEMOGLOBIN 2021-05-15 19:37[facility] PROTHROMBIN TIME / INR 2021-05-15 19:37:00 Singer Dangelo [facility] D-DIMER 2021-05-15 19:37:00 Singer [facility] N-TERMINAL PRO-BNP 2021-05-15 19:37:00 Dangelo Ibrahim [facility] HB ECG ROUTINE & RHYTHM 2021-05-15 19:13:17 Singer [facility] NOTICE OF PRIVACY 2021-05-15 18:55:45 Doctor Unassigned, No [facility] CONSENT/REFUSAL FOR 2021-05-15 18:55:20 Doctor [facility]assigned, [facility] HOSPITAL ADMISSION 2021-05-15 06:01:00 Doctor Unassigned, No [facility] Chest Single View 2019-02-17 00:00:00 [facility] ermann Influenza Type A Antigen 2019-02-17 00:00:00 [facility] orial Juanito Screen Influenza Type B Antigen 2019-02-17 00:00:00 Mem orial Juanito Screen Culture & Sensitivity 2019-01-25 00:00:00 Talisha Suarez Chest Pa And Lat (2 2019-01-25 00:00[facility] Anaerobic Blood Culture 2018-10-09 00:00:00 Dickson Solomon Aerobic Blood Culture 2018-10-09 00:00:00 Talisha Suarez Gram Stain 2018-10-09 00:00:00 [facility] Anaerobic Culture 2018-10-09 00:00:00 [facility] Saurabh rogers Plan of Care Planned Activity Planned Date Details Comments Source Future Scheduled 2031-07-[address] [facility] colon (procedure) [code = 614103606] Future Scheduled 2031-07-[address] [facility] Test 00:00:00 [facility] colon (procedure) [code = 794491734] Future Scheduled 2031-07-[address] [facility] Test 00:00:00 [facility] colon (procedure) [code = 021307562] Future Scheduled 2031-07-[address] [facility] Test 00:00:00 [facility] colon (procedure) [code = 038649536] Future Scheduled 2031-07-[address] [facility] Test 00:00:00 [facility] colon (procedure) [code = 309299887] Future Scheduled 2031-07-[address] [facility] Test 00:00:00 [facility] colon (procedure) [code = 528197101] Future Scheduled 2023-04-[address] [facility] Test 00:00:00 [facility] cervix (procedure) [code = 183921553] Future Scheduled 2023-04-[address] [facility] Test 00:00:00 [facility] cervix (procedure) [code = 751340659] Future Scheduled 2023-04-[address] [facility] Test 00:00:00 [facility] cervix (procedure) [code = 918641174] Future Scheduled 2023-04-[address] [facility] Test 00:00:00 [facility] cervix (procedure) [code = 931141667] Future Scheduled 2023-04-[address] [facility] Test 00:00:00 malignant [facility] cervix (procedure) [code = 564451331] Future Scheduled 2023-04-[address] [facility] Test 00:00:00 [facility] cervix (procedure) [code = 330171531] Future Scheduled 2023-04-[address] [facility] Test 00:00:00 malignant [facility] cervix (procedure) [code = 503922283] Future Scheduled 2023-04-[address] [facility] Test 00:00:00 malignant [facility] cervix (procedure) [code = 571911705] Future Scheduled 2023-04-[address] [facility] Test 00:00:00 malignant [facility] cervix (procedure) [code = 059350776] Future Scheduled 2023-04-[address] [facility] Test 00:00:00 malignant [facility] cervix (procedure) [code = 124407654] Future Scheduled 2023-04-[address] [facility] Test 00:00:00 malignant [facility]oplasm [facility] cervix (procedure) [code = 029711794] Future Scheduled 2023-04-[address] [facility] 00[facility]00[facility]00 [facility] [code = 962424593] Future Scheduled [address] [facility] Test 00:00:00 0-64 YRS (2 of 2 - Medical C enter PPSV23) [code = PNEUMOCOCCAL VACCINE 0-64 YRS (2 of 2 - PPSV23)] Future Scheduled [address] [facility] Test 00:00:00 0-64 YRS (2 of 2 - Medical C enter PPSV23) [code = PNEUMOCOCCAL VACCINE 0-64 YRS (2 of 2 - PPSV23)] Future Scheduled [address] [facility] Test 00:00:00 0-64 YRS (2 of 2 - Medical C enter PPSV23) [code = PNEUMOCOCCAL VACCINE 0-64 YRS (2 of 2 - PPSV23)] Future Scheduled [address] [facility] Test 00:00:00 0-64 YRS (2 of 2 - Medical C enter PPSV23) [code = PNEUMOCOCCAL VACCINE 0-64 YRS (2 of 2 - PPSV23)] Future Scheduled [address] [facility] Test 00:00:00 0-64 YRS (2 of 2 - Medical C enter PPSV23) [code = PNEUMOCOCCAL VACCINE 0-64 YRS (2 of 2 - PPSV23)] Future Scheduled [address] [facility] Test 00:00:00 0-64 YRS (2 of 2 - Medical C enter PPSV23) [code = PNEUMOCOCCAL VACCINE 0-64 YRS (2 of 2 - PPSV23)] Future Scheduled [address] [facility] Test 00:00:00 0-64 YRS (2 of 2 - Medical C enter PPSV23) [code = PNEUMOCOCCAL VACCINE 0-64 YRS (2 of 2 - PPSV23)] Future Scheduled [address] [facility] Test 00:00:00 0-64 YRS (2 of 2 - Medical C enter PPSV23) [code = PNEUMOCOCCAL VACCINE 0-64 YRS (2 of 2 - PPSV23)] Future Scheduled [address] [facility] Test 00:00:00 0-64 YRS (2 of 2 - Medical C enter PPSV23) [code = PNEUMOCOCCAL VACCINE 0-64 YRS (2 of 2 - PPSV23)] Future Scheduled [address] [facility] Test 00:00:00 0-64 YRS (2 of 2 - Medical C enter PPSV23) [code = PNEUMOCOCCAL VACCINE 0-64 YRS (2 of 2 - PPSV23)] Future Scheduled [address] [facility] Test 00:00:00 0-64 YRS (2 of 2 - Medical C enter PPSV23) [code = PNEUMOCOCCAL VACCINE 0-64 YRS (2 of 2 - PPSV23)] Future Scheduled [address] [facility] Test 00:00:00 0-64 YRS (2 of 2 - Medical C enter PPSV23) [code = PNEUMOCOCCAL VACCINE 0-64 YRS (2 of 2 - PPSV23)] Future Scheduled 2021-07-08 COVID-19 VACCINE (1) [facility] Test 18:18:56 [code = COVID-19 VACCINE (1)] Future Scheduled 2021-07-08 DIABETES: RETINAL EYE [facility] Test 18:18:56 EXAM [code = DIABETES: RETINAL EYE EXAM] Future Scheduled 2021-07-08 DIABETIC FOOT EXAM [facility] Test 18:18:56 [code = DIABETIC FOOT EXAM] Future Scheduled 2021-07-08 COLONOSCOPY SCREENING [facility] Test 18:18:56 [code = COLONOSCOPY SCREENING] Future Scheduled 2021-07-08 SHINGLES VACCINES (#1) [facility] Test 18:18:56 [code = SHINGLES VACCINES (#1)] Future Scheduled 2021-07-08 BREAST CANCER [facility] Test 18:18:56 SCREENING [code = BREAST CANCER SCREENING] Future Scheduled 2021-07-08 Screening for [facility] Test 18:18:56 malignant neoplasm of cervix (procedure) [code = 648754762] Future Scheduled 2021-07-08 [facility]ACCINE [facility] 18:18:56 [code = INFLUENZA VACCINE] Future Scheduled 2021-06-26 COVID-19 VACCINE (1) Met [facility] Test 14:10:19 [code = COVID-19 VACCINE (1)] Future Scheduled 2021-06-26 DIABETES: RETINAL EYE [facility] Test 14:10:19 EXAM [code = DIABETES: RETINAL EYE EXAM] Future Scheduled 2021-06-26 DIABETIC FOOT EXAM [facility] Test 14:10:19 [code = DIABETIC FOOT EXAM] Future Scheduled 2021-06-26 COLONOSCOPY SCREENING [facility] Test 14:10:19 [code = COLONOSCOPY SCREENING] Future Scheduled 2021-06-26 SHINGLES VACCINES (#1) [facility] Test 14:10:19 [code = SHINGLES VACCINES (#1)] Future Scheduled 2021-06-26 BREAST CANCER [facility] Test 14:10:19 SCREENING [code = BREAST CANCER SCREENING] Future Scheduled 2021-06-26 Screening for [facility] Test 14:10:19 malignant neoplasm of cervix (procedure) [code = 792588796] Future Scheduled 2021-06-26 INFLUENZA VACCINE [facility] 14:10:19 [code = INFLUENZA VACCINE] Future Scheduled 2021-06-26 COVID-19 VACCINE (1) Met [facility] Test 14:10:19 [code = COVID-19 VACCINE (1)] Future Scheduled 2021-06-26 DIABETES: RETINAL EYE [facility] Test 14:10:19 EXAM [code = DIABETES: RETINAL EYE EXAM] Future Scheduled 2021-06-26 DIABETIC FOOT EXAM [facility] Test 14:10:19 [code = DIABETIC FOOT EXAM] Future Scheduled 2021-06-26 COLONOSCOPY SCREENING [facility] Test 14:10:19 [code = COLONOSCOPY SCREENING] Future Scheduled 2021-06-26 SHINGLES VACCINES (#1) [facility] Test 14:10:19 [code = SHINGLES VACCINES (#1)] Future Scheduled 2021-06-26 BREAST CANCER [facility] Test 14:10:19 SCREENING [code = BREAST CANCER SCREENING] Future Scheduled 2021-06-26 Scre[facility] for [facility] Test 14:10:19 malignant neoplasm of cervix (procedure) [code = 847269425] Future Scheduled 2021-06-26 INFLUENZA VACCINE [facility] 14:10:19 [code = INFLUENZA VACCINE] Future Scheduled 2021-06-26 COVID-19 VACCINE (1) Met [facility] Test 14:10:19 [code = COVID-19 VACCINE (1)] Future Scheduled 2021-06-26 DIABETES: RETINAL EYE [facility] Test 14:10:19 EXAM [code = DIABETES: RETINAL EYE EXAM] Future Scheduled 2021-06-26 DIABETIC FOOT EXAM [facility] Test 14:10:19 [code = DIABETIC FOOT EXAM] Future Scheduled 2021-06-26 COLONOSCOPY SCREENING [facility] Test 14:10:19 [code = COLONOSCOPY SCREENING] Future Scheduled 2021-06-26 SHINGLES VACCINES (#1) [facility] Test 14:10:19 [code = SHINGLES VACCINES (#1)] Future Scheduled 2021-06-26 BREAST CANCER [facility] Test 14:10:19 SCREENING [code = BREAST CANCER SCREENING] Future Scheduled 2021-06-26 Scre[facility] Test 14:10:19 malignant neoplasm of cervix (procedure) [code = 151659515] Future Scheduled 2021-06-26 INFLUENZA VACCINE [facility] 14:10:19 [code = INFLUENZA VACCINE] Future Scheduled 2021-06-26 COVID-19 VACCINE (1) Met [facility] Test 14:10:19 [code = COVID-19 VACCINE (1)] Future Scheduled 2021-06-26 DIABETES: RETINAL EYE [facility] Test 14:10:19 EXAM [code = DIABETES: RETINAL EYE EXAM] Future Scheduled 2021-06-26 DIABETIC FOOT EXAM [facility] Test 14:10:19 [code = DIABETIC FOOT EXAM] Future Scheduled 2021-06-26 COLONOSCOPY SCREENING [facility] Test 14:10:19 [code = COLONOSCOPY SCREENING] Future Scheduled 2021-06-26 SHINGLES VACCINES (#1) [facility] Test 14:10:19 [code = SHINGLES VACCINES (#1)] Future Scheduled 2021-06-26 BREAST CANCER [facility] Test 14:10:19 SCREENING [code = BREAST CANCER SCREENING] Future Scheduled 2021-06-26 Scre[facility] for [facility] Test 14:10:19 malignant neoplasm of cervix (procedure) [code = 696221257] Future Scheduled 2021-06-26 INFLUENZA VACCINE [facility] 14:10:19 [code = INFLUENZA VACCINE] Future Scheduled 2021-06-26 COVID-19 VACCINE (1) Met [facility] Test 14:10:19 [code = COVID-19 VACCINE (1)] Future Scheduled 2021-06-26 DIABETES: RETINAL EYE [facility] Test 14:10:19 EXAM [code = DIABETES: RETINAL EYE EXAM] Future Scheduled 2021-06-26 DIABETIC FOOT EXAM [facility] Test 14:10:19 [code = DIABETIC FOOT EXAM] Future Scheduled 2021-06-26 COLONOSCOPY SCREENING [facility] Test 14:10:19 [code = COLONOSCOPY SCREENING] Future Scheduled 2021-06-26 SHINGLES VACCINES (#1) [facility] Test 14:10:19 [code = SHINGLES VACCINES (#1)] Future Scheduled 2021-06-26 BREAST CANCER [facility] Test 14:10:19 SCREENING [code = BREAST CANCER SCREENING] Future Scheduled 2021-06-26 Scre[facility] Test 14:10:19 malignant neoplasm of cervix (procedure) [code = 903126724] Future Scheduled 2021-06-26 INFLUENZA VACCINE [facility] 14:10:19 [code = INFLUENZA VACCINE] Future Scheduled 2021-06-26 COVID-19 VACCINE (1) Met [facility] Test 14:10:19 [code = COVID-19 VACCINE (1)] Future Scheduled 2021-06-26 DIABETES: RETINAL EYE [facility] Test 14:10:19 EXAM [code = DIABETES: RETINAL EYE EXAM] Future Scheduled 2021-06-26 DIABETIC FOOT EXAM [facility] Test 14:10:19 [code = DIABETIC FOOT EXAM] Future Scheduled 2021-06-26 COLONOSCOPY SCREENING [facility] Test 14:10:19 [code = COLONOSCOPY SCREENING] Future Scheduled 2021-06-26 SHINGLES VACCINES (#1) [facility] Test 14:10:19 [code = SHINGLES VACCINES (#1)] Future Scheduled 2021-06-26 BREAST CANCER [facility] Test 14:10:19 SCREENING [code = BREAST CANCER SCREENING] Future Scheduled 2021-06-26 [facility] for [facility] Test 14:10:19 malignant neoplasm of cervix (procedure) [code = 825090039] Future Scheduled 2021-06-26 INFLUENZA VACCINE [facility] 14:10:19 [code = INFLUENZA VACCINE] Future Scheduled 2021-06-26 COVID-19 VACCINE (1) Met [facility] Test 14:10:19 [code = COVID-19 VACCINE (1)] Future Scheduled 2021-06-26 DIABETES: RETINAL EYE [facility] Test 14:10:19 EXAM [code = DIABETES: RETINAL EYE EXAM] Future Scheduled 2021-06-26 DIABETIC FOOT EXAM [facility] Test 14:10:19 [code = DIABETIC FOOT EXAM] Future Scheduled 2021-06-26 COLONOSCOPY SCREENING [facility] Test 14:10:19 [code = COLONOSCOPY SCREENING] Future Scheduled 2021-06-26 SHINGLES VACCINES (#1) [facility] Test 14:10:19 [code = SHINGLES VACCINES (#1)] Future Scheduled 2021-06-26 BREAST CANCER [facility] Test 14:10:19 SCREENING [code = BREAST CANCER SCREENING] Future Scheduled 2021-06-26 [facility] Test 14:10:19 malignant neoplasm of cervix (procedure) [code = 533139652] Future Scheduled 2021-06-26 INFLUENZA VACCINE [facility] 14:10:19 [code = INFLUENZA VACCINE] Future Scheduled 2021-06-26 COVID-19 VACCINE (1) [facility] Test 14:10:19 [code = COVID-19 VACCINE (1)] Future Scheduled 2021-06-26 DIABETES: RETINAL EYE [facility] Test 14:10:19 EXAM [code = DIABETES: RETINAL EYE EXAM] Future Scheduled 2021-06-26 [facility] 14:10:19 [code = DIABETIC FOOT EXAM] Future Scheduled 2021-06-26 COLONOSCOPY SCREENING [facility] Test 14:10:19 [code = COLONOSCOPY SCREENING] Future Scheduled 2021-06-26 SHINGLES VACCINES (#1) [facility] Test 14:10:19 [code = SHINGLES VACCINES (#1)] Future Scheduled 2021-06-26 BREAST CANCER [facility] Test 14:10:19 SCREENING [code = BREAST CANCER SCREENING] Future Scheduled 2021-06-26 [facility] Test 14:10:19 malignant neoplasm of cervix (procedure) [code = 718587652] Future Scheduled 2021-06-26 INFLUENZA VACCINE [facility] 14:10:19 [code = INFLUENZA VACCINE] Future Scheduled 2021-06-26 COVID-19 [facility]INE (1[facility] 14:10:19 [code = COVID-19 VACCINE (1)] Future Scheduled 2021-06-26 DIABETES: RETINAL EYE [facility] Test 14:10:19 EXAM [code = DIABETES: RETINAL EYE EXAM] Future Scheduled 2021-06-26 DIABETIC FOOT EXAM [facility] Test 14:10:19 [code = DIABETIC FOOT EXAM] Future Scheduled 2021-06-26 COLONOSCOPY SCREENING [facility] Test 14:10:19 [code = COLONOSCOPY SCREENING] Future Scheduled 2021-06-26 SHINGLES VACCINES (#1) [facility] Test 14:10:19 [code = SHINGLES VACCINES (#1)] Future Scheduled 2021-06-26 [facility] 14:10:19 SCREENING [code = BREAST CANCER SCREENING] Future Scheduled 2021-06-26 [facility] Test 14:10:19 malignant neoplasm of cervix (procedure) [code = 706200648] Future Scheduled 2021-06-26 INFLUENZA VACCINE [facility] 14:10:19 [code = INFLUENZA VACCINE] Future Scheduled 2021-06-[address] [facility] Test 00:00:00 (procedure) [code = [facility] 58670298] Future Scheduled 2021-06-[address] [facility] Test 00:00:00 (procedure) [code = [facility] 02664370] Future Scheduled 2021-06-[address] [facility] Test 00:00:00 (procedure) [code = [facility] 52384930] Future Scheduled 2021-06-[address] [facility] Test 00:00:00 (procedure) [code = [facility] 57679976] Future Scheduled 2021-06-[address] [facility] Test 00:00:00 (procedure) [code = [facility] 06902411] Future Scheduled 2021-06-[address] [facility] Test 00:00:00 (procedure) [code = [facility] 72780203] Future Scheduled 2021-06-[address] [facility] Test 00:00:00 (procedure) [code = [facility] 64706808] Future Scheduled 2021-06-[address] [facility] Test 00:00:00 (procedure) [code = [facility] 02960343] Future Scheduled 2021-06-[address] [facility] Test 00:00:00 (procedure) [code = [facility] 71762046] Future Scheduled 2021-06-[address] [facility] Test 00:00:00 (procedure) [code = [facility] 46296245] Future Scheduled 2021-06-[address] [facility] Test 00:00:00 (procedure) [code = [facility] 91987850] Future Scheduled 2021-06-[address] [facility] Test 00:00:00 (procedure) [code = [facility] 32441005] Future Scheduled 2021-06-10 COVID-19 VACCINE (1) Met [facility] Test 17:58:22 [code = COVID-19 VACCINE (1)] Future Scheduled 2021-06-10 DIABETES: RETINAL EYE [facility] Test 17:58:22 EXAM [code = DIABETES: RETINAL EYE EXAM] Future Scheduled 2021-06-10 DIABETIC FOOT EXAM [facility] Test 17:58:22 [code = DIABETIC FOOT EXAM] Future Scheduled 2021-06-10 COLONOSCOPY SCREENING [facility] Test 17:58:22 [code = COLONOSCOPY SCREENING] Future Scheduled 2021-06-10 SHINGLES VACCINES (#1) [facility] Test 17:58:22 [code = SHINGLES VACCINES (#1)] Future Scheduled 2021-06-10 BREAST CANCER [facility] Test 17:58:22 SCREENING [code = BREAST CANCER SCREENING] Future Scheduled 2021-06-10 Screening for [facility] Test 17:58:22 malignant neoplasm of cervix (procedure) [code = 655814319] Future Scheduled 2021-06-10 INFLUENZA VACCINE Method [facility] Test 17:58:22 [code = INFLUENZA VACCINE] Future Scheduled 2021-05-12 COVID-19 VACCINE (1) Met [facility] Test 00:12:28 [code = COVID-19 VACCINE (1)] Future Scheduled 2021-05-12 DIABETES: RETINAL EYE [facility] Test 00:12:28 EXAM [code = DIABETES: RETINAL EYE EXAM] Future Scheduled 2021-05-12 DIABETIC FOOT EXAM [facility] Test 00:12:28 [code = DIABETIC FOOT EXAM] Future Scheduled 2021-05-12 COLONOSCOPY SCREENING [facility] Test 00:12:28 [code = COLONOSCOPY SCREENING] Future Scheduled 2021-05-12 SHINGLES VACCINES (#1) [facility] Test 00:12:28 [code = SHINGLES VACCINES (#1)] Future Scheduled 2021-05-12 BREAST CANCER [facility] Test 00:12:28 SCREENING [code = BREAST CANCER SCREENING] Future Scheduled 2021-05-12 Screening for [facility] Test 00:12:28 malignant neoplasm of cervix (procedure) [code = [id number]] Future Scheduled 2021-05-12 INFLUENZA VACCINE [facility] Test 00:12:28 [code = INFLUENZA VACCINE] Future Scheduled 2021-04-[address] [facility] Test 00:00:00 (12+) [code = Medical Center DEPRESSION SCREENING (12+)] Future Scheduled 2021-04-[address] [facility] Test 00:00:00 (12+) [code = Medical Center DEPRESSION SCREENING (12+)] Future Scheduled 2021-04-[address] [facility] Test 00:00:00 (12+) [code = Medical Center DEPRESSION SCREENING (12+)] Future Scheduled 2021-04-[address] [facility] Test 00:00:00 (12+) [code = Medical Center DEPRESSION SCREENING (12+)] Future Scheduled 2021-04-[address] [facility] Test 00:00:00 (12+) [code = Medical Center DEPRESSION SCREENING (12+)] Future Scheduled 2021-04-[address] [facility] Test 00:00:00 (12+) [code = Medical Center DEPRESSION SCREENING (12+)] Future Scheduled 2021-04-[address] [facility] Test 00:00:00 (12+) [code = Medical Center DEPRESSION SCREENING (12+)] Future Scheduled 2021-04-[address] [facility] Test 00:00:00 (12+) [code = Medical Center DEPRESSION SCREENING (12+)] Future Scheduled 2021-04-[address] [facility] Test 00:00:00 (12+) [code = Medical Center DEPRESSION SCREENING (12+)] Future Scheduled 2021-04-[address] [facility] Test 00:00:00 (12+) [code = Medical Center DEPRESSION SCREENING (12+)] Future Scheduled 2021-04-[address] [facility] Test 00:00:00 (12+) [code = Medical Center DEPRESSION SCREENING (12+)] Future Scheduled 2021-04-[address] [facility] Test 00:00:00 (12+) [code = Medical Center DEPRESSION SCREENING (12+)] Future Scheduled 2021-02-11 COVID-19 VACCINE (1) [facility] Test 13:55:42 [code = COVID-19 VACCINE (1)] Future Scheduled 2021-02-11 DIABETES: RETINAL EYE [facility] Test 13:55:42 EXAM [code = DIABETES: RETINAL EYE EXAM] Future Scheduled 2021-02-11 DIABETIC FOOT EXAM [facility] Test 13:55:42 [code = DIABETIC FOOT EXAM] Future Scheduled 2021-02-11 COLONOSCOPY SCREENING [facility] Test 13:55:42 [code = COLONOSCOPY SCREENING] Future Scheduled 2021-02-11 SHINGLES VACCINES (#1) [facility] Test 13:55:42 [code = SHINGLES VACCINES (#1)] Future Scheduled 2021-02-11 BREAST CANCER [facility] Test 13:55:42 SCREENING [code = BREAST CANCER SCREENING] Future Scheduled 2021-02-11 Screening for [facility] Test 13:55:42 malignant neoplasm of cervix (procedure) [code = [id number]] Future Scheduled 2021-02-11 [facility]INE [facility] Test 13:55:42 [code = INFLUENZA VACCINE] Future Scheduled 2021-01-29 COVID-19 VACCINE (3 [facility] Booster for Pfizer Medical C enter series) [code = COVID-19 VACCINE (3 - Booster for Pfizer series)] Future Scheduled 2021-01-29 COVID-19 VACCINE (3 - [facility] 00:00:00 Booster for Pfizer Medical C enter series) [code = COVID-19 VACCINE (3 - Booster for Pfizer series)] Future Scheduled 2021-01-29 COVID-19 VACCINE (3 - [facility] 00:00:00 Booster for Pfizer Medical C enter series) [code = COVID-19 VACCINE (3 - Booster for Pfizer series)] Future Scheduled 2021-01-29 COVID-19 VACCINE (3 - [facility] 00:00:00 Booster for Pfizer Medical C enter series) [code = COVID-19 VACCINE (3 - Booster for Pfizer series)] Future Scheduled 2021-01-29 COVID-19 VACCINE (3 - [facility] 00:00:00 Booster for Pfizer Medical C enter series) [code = COVID-19 VACCINE (3 - Booster for Pfizer series)] Future Scheduled 2021-01-29 COVID-19 VACCINE (3 - [facility] 00:00:00 Booster for Pfizer Medical C enter series) [code = COVID-19 VACCINE (3 - Booster for Pfizer series)] Future Scheduled 2021-01-29 COVID-19 VACCINE (3 - [facility] 00:00:00 Booster for Pfizer Medical C enter series) [code = COVID-19 VACCINE (3 - Booster for Pfizer series)] Future Scheduled 2021-01-29 COVID-19 VACCINE (3 - [facility] 00[facility]00:00 Booster for Pfizer Medical C enter series) [code = COVID-19 VACCINE (3 - Booster for Pfizer series)] Future Scheduled 2021-01-29 COVID-19 VACCINE (3 - [facility] 00:00:00 Booster for Pfizer Medical C enter series) [code = COVID-19 VACCINE (3 - Booster for Pfizer series)] Future Scheduled 2021-01-29 COVID-19 VACCINE (3 - [facility] 00:00:00 Booster for Pfizer Medical C enter series) [code = COVID-19 VACCINE (3 - Booster for Pfizer series)] Future Scheduled 2021-01-29 COVID-19 VACCINE (3 - [facility] 00:00:00 Booster for Pfizer Medical C enter series) [code = COVID-19 VACCINE (3 - Booster for Pfizer series)] Future Scheduled 2021-01-29 COVID-19 VACCINE (3 - [facility] 00:00:00 Booster for Pfizer Medical C enter series) [code = COVID-19 VACCINE (3 - Booster for Pfizer series)] Future Scheduled 2020-08-[address] [facility] (procedure) [code = [id number]] Future Scheduled 2020-08-[address] [facility] 00[facility]:00 measurement Medical Center (procedure) [code = 58758947] Future Scheduled 2020-08-[address] [facility] 00[facility]:00 measurement [facility] (procedure) [code = 07605898] Future Scheduled 2020-08-[address] [facility] 00[facility]:00 measurement Medical Center (procedure) [code = 84276506] Future Scheduled 2020-08-[address] [facility] 00:[facility]:00 measurement Medical [facility] (procedure) [code = 61889855] Future Scheduled 2020-08-[address] [facility] 00:[facility]:00 measurement Medical [facility] (procedure) [code = 55104994] Future Scheduled 2020-08-[address] [facility] 00:00:00 measurement Medical Center (procedure) [code = 68308385] Future Scheduled 2020-08-[address] [facility] 00:00:00 measurement Medical Center (procedure) [code = 60466844] Future Scheduled 2020-08-[address] [facility] 00:[facility]:00 measurement Medical Center (procedure) [code = 84216840] Future Scheduled 2020-08-[address] [facility] 00:[facility]:00 measurement Medical [facility] (procedure) [code = 09960699] Future Scheduled 2020-08-[address] [facility] 00:00:00 measurement Medical Center (procedure) [code = 74946714] Future Scheduled 2020-08-[address] [facility] 00:[facility]:00 measurement Medical Center (procedure) [code = 19910614] Future Scheduled 2019-11-[address] [facility]:00 malignant neoplasm of [facility] breast (procedure) [code = 986900863] Future Scheduled 2019-11-[address] [facility] 00:00:00 [facility] breast (procedure) [code = 487501017] Future Scheduled 2019-11-[address] [facility] 00:00:00 malignant [facility] of [facility] breast (procedure) [code = 913056241] Future Scheduled 2019-11-[address] [facility] 00:00:00 malignant [facility] of [facility] breast (procedure) [code = 809881102] Future Scheduled 2019-11-[address] [facility] 00:00:00 malignant [facility] of [facility] breast (procedure) [code = 555381636] Future Scheduled 2019-11-[address] [facility] 00:00:00 malignant [facility]oplasm of [facility] breast (procedure) [code = 124333744] Future Scheduled 2019-11-[address] [facility] 00:00:00 malignant neoplasm of [facility] breast (procedure) [code = 931911846] Future Scheduled 2019-11-[address] [facility] 00:00:00 malignant neoplasm of [facility] breast (procedure) [code = 233754482] Future Scheduled 2019-11-[address] [facility] 00:00:00 malignant neoplasm of [facility] breast (procedure) [code = 080668075] Future Scheduled 2019-11-[address] [facility] 00:00:00 malignant [facility]oplasm of [facility] breast (procedure) [code = 771288933] Future Scheduled 2019-11-[address] [facility] 00:00:00 malignant [facility]oplasm of [facility] breast (procedure) [code = 712742125] Future Scheduled 2019-11-[address] [facility] 00:00:00 malignant neoplasm of [facility] breast (procedure) [code = 918336572] Future Scheduled 2018-06-[address] [facility] 00:00:00 WELLNESS (YEAR 2 or Medical Center FIRST YEAR if no IPPE) [code = MEDICARE ANNUAL WELLNESS (YEAR 2 or FIRST YEAR if no IPPE)] Future Scheduled 2018-06-[address] [facility] 00:00:00 WELLNESS (YEAR 2 or Medical Center FIRST YEAR if no IPPE) [code = MEDICARE ANNUAL WELLNESS (YEAR 2 or FIRST YEAR if no IPPE)] Future Scheduled 2018-06-[address] [facility] 00:00:00 WELLNESS (YEAR 2 or Medical Center FIRST YEAR if no IPPE) [code = MEDICARE ANNUAL WELLNESS (YEAR 2 or FIRST YEAR if no IPPE)] Future Scheduled 2018-06-[address] [facility] 00:00:00 WELLNESS (YEAR 2 or Medical Center FIRST YEAR if no IPPE) [code = MEDICARE ANNUAL WELLNESS (YEAR 2 or FIRST YEAR if no IPPE)] Future Scheduled 2018-06-[address] [facility] 00:00:00 WELLNESS (YEAR 2 or Medical Center FIRST YEAR if no IPPE) [code = MEDICARE ANNUAL WELLNESS (YEAR 2 or FIRST YEAR if no IPPE)] Future Scheduled 2018-06-[address] [facility] 00:00:00 WELLNESS (YEAR 2 or Medical Center FIRST YEAR if no IPPE) [code = MEDICARE ANNUAL WELLNESS (YEAR 2 or FIRST YEAR if no IPPE)] Future Scheduled 2018-06-[address] [facility] 00:00:00 WELLNESS (YEAR 2 or Medical Center FIRST YEAR if no IPPE) [code = MEDICARE ANNUAL WELLNESS (YEAR 2 or FIRST YEAR if no IPPE)] Future Scheduled 2018-06-[address] [facility] 00:00:00 WELLNESS (YEAR 2 or Medical Center FIRST YEAR if no IPPE) [code = MEDICARE ANNUAL WELLNESS (YEAR 2 or FIRST YEAR if no IPPE)] Future Scheduled 2018-06-[address] [facility] Test 00:00:00 WELLNESS (YEAR 2 or Medical Center FIRST YEAR if no IPPE) [code = MEDICARE ANNUAL WELLNESS (YEAR 2 or FIRST YEAR if no IPPE)] Future Scheduled 2018-06-[address] [facility] Test 00:00:00 WELLNESS (YEAR 2 or Medical Center FIRST YEAR if no IPPE) [code = MEDICARE ANNUAL WELLNESS (YEAR 2 or FIRST YEAR if no IPPE)] Future Scheduled 2018-06-[address] [facility] 00:00:00 WELLNESS (YEAR 2 or Medical Center FIRST YEAR if no IPPE) [code = MEDICARE ANNUAL WELLNESS (YEAR 2 or FIRST YEAR if no IPPE)] Future Scheduled 2018-06-[address] [facility] 00:00:00 WELLNESS (YEAR 2 or Medical Center FIRST YEAR if no IPPE) [code = MEDICARE ANNUAL WELLNESS (YEAR 2 or FIRST YEAR if no IPPE)] Future Scheduled 2007-09-05 SHINGLES VACCINES ([address] [facility] Test 00:00:00 of 2) [code = SHINGLES Medic al Center VACCINES (1 of 2)] Future Scheduled 2007-09-05 SHINGLES VACCINES ([address] [facility] Test 00:00:00 of 2) [code = SHINGLES Medic al Center VACCINES (1 of 2)] Future Scheduled 2007-09-05 SHINGLES VACCINES ([address] [facility] Test 00:00:00 of 2) [code = SHINGLES Medic al Center VACCINES (1 of 2)] Future Scheduled 2007-09-05 SHINGLES VACCINES ([address] [facility] Test 00:00:00 of 2) [code = SHINGLES Medic al Center VACCINES (1 of 2)] Future Scheduled 2007-09-05 SHINGLES VACCINES ([address] [facility] Test 00:00:00 of 2) [code = SHINGLES Medic al Center VACCINES (1 of 2)] Future Scheduled 2007-09-05 SHINGLES VACCINES ([address] [facility] Test 00:00:00 of 2) [code = SHINGLES Medic al Center VACCINES (1 of 2)] Future Scheduled 2007-09-05 SHINGLES VACCINES ([address] [facility] Test 00:00:00 of 2) [code = SHINGLES Medic al Center VACCINES (1 of 2)] Future Scheduled 2007-09-05 SHINGLES VACCINES ([address] [facility] Test 00:00:00 of 2) [code = SHINGLES Medic al Center VACCINES (1 of 2)] Future Scheduled 2007-09-05 SHINGLES VACCINES ([address] [facility] Test 00:00:00 of 2) [code = SHINGLES Medic al Center VACCINES (1 of 2)] Future Scheduled 2007-09-05 SHINGLES VACCINES ([address] [facility] Test 00:00:00 of 2) [code = SHINGLES Medic al Center VACCINES (1 of 2)] Future Scheduled 2007-09-05 SHINGLES VACCINES ([address] [facility] Test 00:00:00 of 2) [code = SHINGLES Medic al Center VACCINES (1 of 2)] Future Scheduled 2007-09-05 SHINGLES VACCINES ([address] [facility] Test 00:00:00 of 2) [code = SHINGLES Medic al Center VACCINES (1 of 2)] Future Scheduled 1976 DTAP/TDAP/TD VACCINES [facility] 00:00:00 (1 - Tdap) [code = Medical C enter DTAP/TDAP/TD VACCINES (1 - Tdap)] Future Scheduled 1976 DTAP/TDAP/TD VACCINES [facility] 00:00:00 (1 - Tdap) [code = Medical C enter DTAP/TDAP/TD VACCINES (1 - Tdap)] Future Scheduled 1976 DTAP/TDAP/TD VACCINES [facility] 00:00:00 (1 - Tdap) [code = Medical C enter DTAP/TDAP/TD VACCINES (1 - Tdap)] Future Scheduled 1976 DTAP/TDAP/TD VACCINES [facility] 00:00:00 (1 - Tdap) [code = Medical C enter DTAP/TDAP/TD VACCINES (1 - Tdap)] Future Scheduled 1976 DTAP/TDAP/TD VACCINES [facility] 00:00:00 (1 - Tdap) [code = Medical C enter DTAP/TDAP/TD VACCINES (1 - Tdap)] Future Scheduled 1976 DTAP/TDAP/TD VACCINES [facility] 00:00:00 (1 - Tdap) [code = Medical C enter DTAP/TDAP/TD VACCINES (1 - Tdap)] Future Scheduled 1976 DTAP/TDAP/TD VACCINES [facility] 00:00:00 (1 - Tdap) [code = Medical C enter DTAP/TDAP/TD VACCINES (1 - Tdap)] Future Scheduled 1976 DTAP/TDAP/TD VACCINES [facility] 00:00:00 (1 - Tdap) [code = Medical C enter DTAP/TDAP/TD VACCINES (1 - Tdap)] Future Scheduled 1976 DTAP/TDAP/TD VACCINES [facility] 00:00:00 (1 - Tdap) [code = Medical C enter DTAP/TDAP/TD VACCINES (1 - Tdap)] Future Scheduled 1976 DTAP/TDAP/TD VACCINES [facility] 00:00:00 (1 - Tdap) [code = Medical C enter DTAP/TDAP/TD VACCINES (1 - Tdap)] Future Scheduled 1976 DTAP/TDAP/TD VACCINES [facility] 00:00:00 (1 - Tdap) [code = Medical C enter DTAP/TDAP/TD VACCINES (1 - Tdap)] Future Scheduled 1976 DTAP/TDAP/TD VACCINES [facility] 00:00:00 (1 - Tdap) [code = Medical C enter DTAP/TDAP/TD VACCINES (1 - Tdap)] Future Scheduled 1967-09-[address] EX[address] [facility] Test 00:00:00 [code = DIABETIC EYE Medical Center EXAM] Future Scheduled 1967-09-[address] [facility] 00:[facility]:00 examination Medical Center (regime/therapy) [code = 490648042] Future Scheduled 1967-09-05 Urine screening for [facility] Test 00:00:00 protein (procedure) Medical Center [code = 836868417] Future Scheduled 1967-09-[address] DI[address] EYE EXAM [facility] Test 00:00:00 [code = DIABETIC EYE Medical Center EXAM] Future Scheduled 1967-09-[address] [facility] 00:00:00 examination Medical Center (regime/therapy) [code = 427773022] Future Scheduled 1967-09-05 Urine screening for [facility] Test 00:00:00 protein (procedure) Medical Center [code = 501314911] Future Scheduled 1967-09-[address] DI[address] EYE EXAM [facility] Test 00:00:00 [code = DIABETIC EYE Medical Center EXAM] Future Scheduled 1967-09-[address] [facility] 00:00:00 examination Medical Center (regime/therapy) [code = 227057177] Future Scheduled 1967-09-05 Urine screening for [facility] Test 00:00:00 protein (procedure) Medical Center [code = 434895979] Future Scheduled 1967-09-[address] DI[address]YE EXAM [facility] Test 00:00:00 [code = DIABETIC EYE Medical Center EXAM] Future Scheduled 1967-09-[address] [facility] 00:00:00 examination Medical Center (regime/therapy) [code = 637882913] Future Scheduled 1967-09-05 Urine screening for [facility] Test 00:00:00 protein (procedure) Medical Center [code = 342670560] Future Scheduled 1967-09-[address] DI[address] EYE EXAM [facility] Test 00:00:00 [code = DIABETIC EYE Medical Center EXAM] Future Scheduled 1967-09-[address] [facility] 00:00:00 examination Medical Center (regime/therapy) [code = 383715569] Future Scheduled 1967-09-05 Urine screening for [facility] Test 00:00:00 protein (procedure) Medical Center [code = 028089960] Future Scheduled 1967-09-[address] DI[address] EYE EXAM [facility] Test 00:00:00 [code = DIABETIC EYE Medical Center EXAM] Future Scheduled 1967-09-[address] [facility] 00:00:00 examination Medical Center (regime/therapy) [code = 232373630] Future Scheduled 1967-09-05 Urine screening for [facility] Test 00:00:00 protein (procedure) Medical Center [code = 241546585] Future Scheduled 1967-09-[address] DI[address] EYE EXAM [facility] Test 00:00:00 [code = DIABETIC EYE Medical Center EXAM] Future Scheduled 1967-09-[address] [facility] 00:00:00 examination Medical Center (regime/therapy) [code = 825133804] Future Scheduled 1967-09-05 Urine screening for [facility] Test 00:00:00 protein (procedure) Medical Center [code = 449118860] Future Scheduled 1967-09-[address] DI[address] EYE EXAM [facility] Test 00:00:00 [code = DIABETIC EYE Medical Center EXAM] Future Scheduled 1967-09-[address] [facility] 00:00:00 examination Medical Center (regime/therapy) [code = 049886641] Future Scheduled 1967-09-05 Urine screening for [facility] Test 00:00:00 protein (procedure) Medical Center [code = 555435856] Future Scheduled 1967-09-[address] DIAB[address] EYE EXAM [facility] Test 00:00:00 [code = DIABETIC EYE Medical Center EXAM] Future Scheduled 1967-09-[address] [facility] 00:00:00 examination Medical Center (regime/therapy) [code = 760584180] Future Scheduled 1967-09-05 Urine screening for [facility] Test 00:00:00 protein (procedure) Medical Center [code = 602354767] Future Scheduled 1967-09-[address] DIAB[address]IC EYE EXAM [facility] Test 00:00:00 [code = DIABETIC EYE Medical Center EXAM] Future Scheduled 1967-09-[address] [facility] 00:00:00 examination Medical Center (regime/therapy) [code = 313462132] Future Scheduled 1967-09-05 Urine screening for [facility] Test 00:00:00 protein (procedure) Medical Center [code = 256824677] Future Scheduled 1967-09-[address] DIAB[address]IC EYE EXAM [facility] Test 00:00:00 [code = DIABETIC EYE Medical Center EXAM] Future Scheduled 1967-09-[address] [facility] 00:00:00 examination Medical Center (regime/therapy) [code = 005326668] Future Scheduled 1967-09-05 Urine screening for [facility] Test 00:00:00 protein (procedure) Medical Center [code = 938174150] Future Scheduled 1967-09-[address] DIAB[address]IC EYE EXAM [facility] Test 00:00:00 [code = DIABETIC EYE Medical Center EXAM] Future Scheduled 1967-09-[address] [facility] 00:00:00 examination Medical Center (regime/therapy) [code = 410810603] Future Scheduled 1967-09-05 Urine screening for [facility] Test 00:00:00 protein (procedure) Medical Center [code = 160226593] Future Scheduled [address] [facility] [code = 351843910] Future Scheduled [address] [facility] 00:00:00 malignant neoplasm of [facility] Center colon (procedure) [code = 518769019] Future Scheduled [address] [facility] 00:00:00 malignant neoplasm of [facility] Center colon (procedure) [code = 788744851] Future Scheduled [address] [facility] 00:00:00 (combo) [code = CT Medical C enter Colonography (combo)] Future Scheduled [address] [facility] 00:00:00 malignant neoplasm of [facility] colon (procedure) [code = 656490153] Future Scheduled [address] [facility] 00:00:00 malignant neoplasm of [facility] colon (procedure) [code = 455059353] Future Scheduled [address] [facility] 00:00:00 malignant neoplasm of [facility] colon (procedure) [code = 515911955] Future Scheduled [address] [facility] 00:00:00 malignant neoplasm of [facility] Center colon (procedure) [code = 156036483] Future Scheduled 1957 Sigmoidoscopy [facility] Future Scheduled [address] [facility] 00:00:00 (combo) [code = CT Medical C enter Colonography (combo)] Future Scheduled [address] [facility] 00:00:00 malignant neoplasm of [facility] Center colon (procedure) [code = 639641636] Future Scheduled [address] [facility] 00:00:00 malignant neoplasm of [facility] Center colon (procedure) [code = 356550393] Future Scheduled [address] [facility] 00:00:00 malignant neoplasm of [facility] colon (procedure) [code = 258399484] Future Scheduled [address] [facility] 00:00:00 malignant neoplasm of [facility] colon (procedure) [code = 029237125] Future Scheduled 1957 Sigmoidoscopy [facility]] [facility] Future Scheduled [address] [facility] 00:00:00 (combo) [code = CT Medical C enter Colonography (combo)] Future Scheduled [address] [facility] 00:00:00 malignant neoplasm of [facility] Center colon (procedure) [code = 426720976] Future Scheduled [address] [facility] 00:00:00 malignant neoplasm of [facility] Center colon (procedure) [code = 410484486] Future Scheduled [address] [facility] 00:00:00 malignant neoplasm of [facility] Center colon (procedure) [code = 382074284] Future Scheduled [address] [facility] 00:[facility]:00 [facility] neoplasm of [facility] Center colon (procedure) [code = 323882225] Future Scheduled 1957 Sigmoidoscopy [facility] r Future Scheduled [address] [facility] 00:00:00 (combo) [code = CT Medical C enter Colonography (combo)] Future Scheduled [address] [facility] 00:00:00 malignant neoplasm of [facility] Center colon (procedure) [code = 015304307] Future Scheduled [address] [facility] 00:00:00 malignant neoplasm of [facility] colon (procedure) [code = 487936352] Future Scheduled [address] [facility] 00:00:00 malignant neoplasm of [facility] colon (procedure) [code = 941851763] Future Scheduled [address] [facility] 00:00:00 malignant neoplasm of [facility] colon (procedure) [code = 787368251] Future Scheduled 1957 S[facility]oidoscopy [facility] [address] [facility] 00:00:00 (combo) [code = CT Medical C enter Colonography (combo)] Future Scheduled [address] [facility] 00:00:00 malignant neoplasm of [facility] colon (procedure) [code = 785694519] Future Scheduled [address] [facility] 00:00:00 malignant neoplasm of [facility] colon (procedure) [code = 156935173] Future Scheduled 1957 Sigmoidoscopy [facility]code [facility] S[facility]] [facility] [place] [facility] Future Scheduled [address] [facility] 00:00:00 (combo) [code = CT Medical C enter Colonography (combo)] Future Scheduled [address] [facility] 00:00:00 malignant neoplasm of [facility] Center colon (procedure) [code = 295946298] Future Scheduled [address] [facility] 00:00:00 malignant neoplasm of [facility] Center colon (procedure) [code = 352602836] Future Scheduled 1957 Sigmoidoscopy [facility] S[facility]] [facility] [place] [facility] Future Scheduled [address] [facility] 00:00:00 (combo) [code = CT Medical C enter Colonography (combo)] Future Scheduled [address] [facility] (procedure) [code = 999841945] Future Scheduled [address] [facility] (procedure) [code = 648549002] Future Scheduled 1957 Sigmoidoscopy [facility]code [facility]] Medical Isaele r Future Scheduled [address] [facility] colon (procedure) [code = 887996943] Future Scheduled [address] [facility] (procedure) [code = 336835470] Encounters Start End Encounter Admission Attending Care Care Encounter Source Date/Time Date/Time Type Type Clinicians Facility Department ID 2021-07-06 Inpatient SHASHANK LOCO [facility] Surgery [id number] SLE 14:33:12 [facility] 2021-07-06 Hospital [facility] [id number] [facility] 00:00:00 Encounter [facility] 2018-09-18 Outpatient [facility] [id number] [facility] 08:26:04 2021-10-20 2021-10-20 Telephone [facility] [id number] Univers 00:00:00 00:00:00 Brenda GARCIA [id number] Cynthia [id number] Anaya UMAÑA [id number] [address] 2021-08-07 2021-08-07 Outpatient SHASHANK MENDIOLA [facility] [id number] SLE 00:00:00 00:00:00 NADYA 2021-06-07 2021-07-04 Inpatient ER LOGAN RUSSO [facility] Surgery [id number] SLE 19:44:00 14:34:00 2021-07-03 2021-07-03 Surgery Beronica [facility] [id number] 15:05[facility]00 16:05:00 [facility] 2021-07-03 2021-07-03 Anesthesia Mitchel [facility] [id number] 14:49:00 15:35:00 Event [facility] 2021-06-30 2021-06-30 Surgery Krzysztof Dodd [facility] [id number] 19:35:00 22:24:00 [facility] 2021-06-26 2021-06-26 Surgery Krzysztof Dodd [facility] [id number] 07:30:00 11:59:00 [facility] 2021-06-25 2021-06-25 Anesthesia Marissa [facility] [id number] 23:59:59 23:59:59 Event Fadia [facility] 2021-06-18 2021-06-18 Anesthesia Asad Santana [facility] [id number] [facility] 07:58:00 14:52:00 Event Vahid Link [facility] 2021-06-18 2021-06-18 Surgery Logan Russo [facility] [id number] 08:00:00 14:45:00 R [facility] 2021-06-16 2021-06-16 Anesthesia Sade Argueta [facility] [id number] 11:58:00 13:03:00 Event Robert Allen [facility] 2021-06-16 2021-06-16 Surgery Donte [facility] [id number] 10:30:00 12:00:00 [facility] 2021-06-09 2021-06-09 Outpatient [facility] [place] [id number] [facility] 00:00:00 23:59:00 [facility] 2021-06-07 2021-06-07 Outpatient BCM BCM [id number] [facility] 19:44:00 23:59:00 [facility] 2021-06-07 2021-06-07 Orders [facility] [id number] 00:00:00 00:00:00 Only [facility] 2021-06-07 2021-06-07 Travel [facility] [id number] [facility]00 00:00:00 [facility] 2021-05-26 2021-05-26 Transition DAKOTA Bennett [id number] Univers 00:00:00 00:00:00 of Yari [place] [id number] it y of [place] [id number] Anaya tierney [id number] [facility] yoel [address] 2021-05-26 2021-05-26 Telephone Tristan [facility] [id number] 00:00[facility]00 00:00:00 [facility] 2021-05-25 2021-05-25 Transition DAKOTA Bennett [id number] Univers 00:00:00 00:00:00 of Yari [place] [id number] it y of [place] [id number] [facility] [id number] [facility] [address] 2021-05-15 2021-05-22 Hospital Dangelo Ibrahim [facility] [id number] Univers 13:03:00 21:15:00 Encounter Neil Thomas [id number] ity [facility] [id number] [facility] [id number] [facility] [address] 2021-05-15 2021-05-22 Inpatient X WILLIAM [facility] NILESH [id number] Univers 13:03:00 21:15:00 NEIL ity of [facility] 2020-08-28 2020-08-28 Orders Fuentes [facility] [id number] 00:00:00 00:00:[address] [facility] 2020-08-28 2020-08-28 Abstract Fuentes [facility] [id number] 00:00:00 00:00:[address] [facility] 2020-08-06 2020-08-06 Telephone Freddie [facility] [id number] 00:00:00 00:00:00 [facility] 2020-08-06 2020-08-06 Documentcalli Frazier [facility] [id number] 00:00:00 00:00:00 ion [facility] 2020-08-06 2020-08-06 Abstract Freddie [facility] [id number] 00:00:00 00:00:00 [facility] 2020-08-04 2020-08-04 Documentcalli Frazier [facility] [id number] 00:00:00 00:00:00 ion [facility] 2020-07-28 2020-07-28 [facility] [id number] 00:00[facility]00 00:00:00 [facility] 2020-07-28 2020-07-28 Abstract Freddie, [facility] [id number] 00:00:00 00:00:00 [facility] 2020-07-25 2020-07-25 Documentat Frazier, [facility] [id number] 00:00:00 00:00:00 [facility] 2020-07-24 2020-07-24 [facility] [id number] 00:00:00 00:00:00 [facility] 2020-07-24 2020-07-24 [facility] [id number] 00:00:00 00:00:00 [facility] 2020-07-24 2020-07-24 Abstract Freddie, [facility] [id number] 00:00:00 00:00:00 [facility] 2020-04-16 2020-04-16 Office Kim [facility] [id number] 12:56:21 13:26:21 Visit Pascale Garcia [id number] [place] [id number] [facility] [id number] [address] 2019-02-18 2019-02-[address] [id number] Memoria 03:46:00 22:27:00 [facility] 2019-01-26 2019-01-[address] [id number] [facility] 01:39:00 06:10:00 [facility] EM[facility]Y [facility] 2018-10-09 2018-10-[address] [id number] [facility] 09:44:00 21:45:00 [facility]patient [facility] Keiko torres 2018-01-22 2018-01-22 Emergency E MHSE [facility]SE 7532 16:17:00 16:17:00 [facility] Results Test Description Test Time Test Comments Results Result Comments Source AFB CULTURE + SMEAR (NON-SPUTUM) 2021-08-07 10:55:07 Test Item Value Reference Range Interpretation Comme nts CULTURE (BEAKER) (test code = 1095) No acid-fast bacilli isolated i n 42 days AFB SMEAR (BEAKER) (test code = 994) No acid fast bacilli seen Fungus culture + [id number] 01:03:45 Test Item Value Reference Range Interpretation Comments Result (test code = No fungus isolated in 6463-4) 28 days Fungus Smear (test No fungi seen code = 1406[id number] 01:03:45 Test Item Value Reference Range Interpretation Comments Result (test code = No [place] [address]) 28 days Fungus Smear (test No fungi seen code = 1406) [facility] [id number] 01:03:45 Test Item Value Reference Range Interpretation Comments CULTURE (BEAKER) (test No fungus isolated in code = 1095) 28 days FUNGUS SMEAR (BEAKER) No fungi seen (test code = 1406) TISSUE [id number] 12:44:09Surgical Pathology Report Case: [id number] Authorizing Provider: Logan Russo MD Collected: 06/18/2021 11:41 AM Ordering Location: [facility] Received: 06/19/2021 03:44 PM PERIOPERATIVE SERVICES Pathologist: Tom Paige MD Specimen: Mass, MITRAL VALVE MASS- for MICROBIOLOGY then pls send to Pathology Special stains for acid fast bacilli are negative. Gram stain and GMS stain highlight possible bacterial aggregates. Correlation with microbiological studies is required for further subclassification. Addendum electronically signed by Tom Paige MD on 07/09/2021 at 12:44 PMA. HEART, MITRAL VALVE, DEBRIDEMENTAND REPAIR:FIBRIN, ACUTE INFLAMMATORY AGGREGATE AND CALCIFICATION.SPECIAL STAINS FOR INFECTIOUS ORGANISMS PENDING, ADDENDUM TO FOLLOW. CORRELATION WITH MICROBIOLOGICAL STUDIES IS RECOMMENDED. Signing Pathologist Direct Phone Line: [phone] signed by Tom Paige MD on 06/24/2021 at 3:29 [id number], [id number] valvePerformed.The interpretation of this case included the use of immunohistochemistry or special stains.BLOCK A1- BROWN AND ELIZABETH GMS, AFBControl Slides Examined: In-house known positive controls were evaluated along with the test tissue. These control slides run alongside of the patients sample show appropriate staining. Internal positive an d negative controls when available are evaluated Immunohistochemistry technical testing was performed at [facility], Pathology Laboratory where it was developed and its performance characteristics were determined. It has not been cleared or approved by the U.S. Food and Drug Administration. The FDA has determined that such clearance or approval is not necessary. The test is usedfor clinical purposes. It should not be regarded as investigational or for research. This laboratoryis certified under the Clinical Laboratory Improvement Amendments of 1988 (CLIA-88) as qualified to perform high complexity clinical laboratory testing.[facility], Department of Pathology, [address] [place] [address], [facility], [facility] of [facility], [address] [place] [address], [facility], Department of Pathology, [address] [place] [phone], a. Received in formalin labeled with the patient's information and "mitral valve mass" is a 1.5 cm in length by 0.3 cm in diameter robert-pink tissue, which is submitted in toto in cassette A1.MP (resident)Tissue [id number] 09:50:09 Test Item Value Reference Range Interpretation Comments Case Report (test code Surgical Pathology = 104) Report Case: [id number] Authorizing Provider: Angela Loco Collected: 07/03/2021 03:04 PM MD Brian Ordering Location: [address] Received: 07/06/2021 09:08 AM Service Pathologist: Michelle Fernández MD Specimens: A) - Polyp, Colon - Cecum, x1 taken byhot snare B) - Polyp, Colon - Right/Ascending, x 1 taken by hot snare C) - Polyp, Colon - Right/Ascending, x 1 taken by hot snare, clip x 1 D) - Polyp, Colon - Transverse, x 1 taken by hot snare, clip x 1 DIAGNOSIS (test code = [id number] 3220) FuZzEwMzNcZnRuYmpcdWMx IHtccnRmMVxlcGljOTYwMV tcaiNiFFJdrBMbM0Bbsitg JNdfZB2fRW9apHjdzJAecR WdKPNlAkKmd3jjd968dLKf k5ezNQIMebscmHu1iZheI8 1nq3T7HdhiP33tmZUyRZC3 IQHzNUZkaGUoGSBhOIJ4CJ LsgUZvB2bjUFRhWZ4ynhkj DCigIZrbSHDriKN9ZHWfzJ DjB0EdXBDkJWpwNVPfeoz9 VmYvPu3vdHCdtNcmCQbjUE HwBHYiZVkwICAcZgDiKL5r D92JP74cWGRAA5HUXGAYED vTNEAKCX5XY9l2UPXvxoQr LSAgVFVCVUxBUiBBREVOT0 3FKGWzdfswICLyNh4kW73V D74iFZMYB9tGP9ROV0WBJB lQIoMPG7fUWOpiZmoIWXAI AldjJWKbEJ4lSZ4UEURWXB uWOLLOMVhRWU9VOkKQViDL SKFEQHGOOEDKTV8RWODalD FyICAtICBORUdBVElWRSBG H3TcXIfXGX8MZjKKCBGTVE TLQFEDHIHhQ8OeHYZCHArK QH5OOEwbAXKeqQAdXPBbXA VAKE6YVBHKYHeTTX8UU8UO ImMNEpjgWT0CJXFlLBEMB3 BTWTpccGFyICAtICBNVUxU SVBMRSBGUkFHTUVOVFMgT0 SuUERGCToTPqSZRUPFH54Q XHBhciAgLSAgTkVHQVRJVk SrNx3FDInGY2ckW8RKDAGi ZLeLEMlJS5qYAI7WZK3NRK cNMkYLC3jlnHVuPEOnsxGo lKUbIWJlLCXDPM5XZQMVYv KZY8MCYfOPHCCSCJsPAHJF QP3FQ0e0LQGbpvFsXHZgWR REVSdWCKNsJjFML25NTxWN MW5ZMUXHWnUORFCwWFBQJv 6ODXujDIBaZM5hUZ8YT9LN SVZFIEZPUiBISUdILUdSQU YUKAVFT4SLGMIXZOGBRzWE TBaTP80RQmVPIKWzlc94IE L4XkKwr0A2ODA1CIWmFZWu z4keYATkaRDoDlXhIrMuYs SmClpbpEKxNHZxSaZys5dk y481pMBfk0xjXZYyMaT4pK OyOFWqlSQzN932GLKrVWrq o4yap2FtGEQzsXYwd6X6MD PLjdzdaWc4tQpgF15zd7Q8 XxklS3ouSKPyRNSsU7WrRW 5eYJEkHrg9JSN7SBT7SXVl GDOsT0BtEJ4eBKUbaMYyND c9i0hyhOatMYQmDBI6x6nv XNzauyGrBJ5ghs2osEt2c5 xjczEgRGVmYXVsdCBQYXJh C4YkmOnsHu7euHs4bJtwOl pkLYK1Uut6NA7vdy92nkn2 xQlcWOTpmewyShA6LVslGD PkjvsbLUp5KIrgJGLjtEI9 QFHweAWfQ1TaYPWdVH3mio v9EOV7UHgyWNRoMzT3LBEk dRSeZXVxvQpiTXxft687PD R0LaOkDL3jM8Vaq1U0rT1c aXRcZGVmdGFiNzIwXGZvcm 7dwUPcCPzxq7JcVNE7kkJ3 hVUniZEmMWHkLoX5SDmySM 5dzu36RBTvKEM2fl9pwRPp vVjtroEntZYcTYltT7RnMT Mlu105LBCpO6IrUFGrr7H4 xoZhCoWpLKCymRC1gtL6JE OqMV2qvqdqw1joCNitJDtl YEAebvC7acY7ASYisPJcX8 WimA8pDPMtGJ5jwtriz0dw YUD1AGafMUCzHOJ1KfDjYQ Hxd3Lbwrr9LdFlx6PbzRMq TIkoI79ow976NOXtcyPeQ0 xwbGFpblxwbGFpblxmMFxm rsO1PEGlSSgdchgjVGPlQY fqM3wbLpWgESTglFhcVLxz d2OgWHFmMQTbNpCwpDWoUF ZkKgs8NXXpbQWkWWGoYcRo Z0frrhwhKjORLCWcs8swG4 wgmUVYlQGzK6QeZWeijyFf HStuJAhnUFJmNBV4UT4iYV FhHZPynd64 CPT Code(s) (test code p5rbgNXhYTWegPT3NkNkPT = 8498) Aii0tle9VxvRJxmTOiJZzd pTVsirVzud12pER1zN51OW 7mSKAbQtQ7NETymoR7Usg4 OQYrVZZwmOCyK817s9lep1 cgfbJtbEA2kTktGMUtgutm TuY2PUqvEYOotdjgXDw5PR flJDZroZG7UAExpYLlT3Tt DBJrXV0ozoi0ZGL5NGqtXO LoVvF3LBYjjCPvSGUulTvi DTkoz268QKF1TtLdGXOzls GhjKjrqY9yLlSjNDD1RRGd NPd6TFFvcm0= CLINICAL HISTORY (test u2qibSNlPOUrkXR7XaGbLQ code = 3356) Mnx5num2UkpEDsyBIfTMvf hZHxvtInqq94wSJ1fX74GA 9dUMNjYdO2BGNgzsR6Xuy5 IASoVSArzQIrP564h4hnb2 dxthHlgUK3WDZtOPEtQ1Rs DI2zVPNapDBkA78cvZFiTF Q7IXOzHCIopBUtDVYmHKY5 OSDglEUlT5rhGFYjPQ7kpv koTTzdSAvvSAIagSY1VEZi qTSkW9YwWPQnNTuqZZHmmh g2HkEyYk5ehGJmnNdvQMtr YXJkXHJpMVxwbGFpblxmcz XrRSOaNHKVbg9gLLJjExgq pIKoH0fsGQ1pgZymQVR6up EzMPGvJwarBNPztj4cYKEc ZkyoqXUvN8dmLD8vcSvjBI T0lLZxGEQqij9= GROSS DESCRIPTION (test z3htpYUcCNBjbSHXFANlEi code = [id number]) tyipDmKCSjkQSsQ6Abigud RStoVS9aZR5olPwmdBSgwV RcUQ7NVHCiZmHvCFXwiRKe qbOfUrXhECJwkZQnhEW3KG AuEA2tefbmXSqgTSpvRAUd aaS8YQPdlGQkA1KcMGJrAX 1aolhwEZC3FFnnwQ8eriCH YytoEm3hwTNeiSjfSaEvLi NoYXJzZXQwXGZuaWwgQXJp AQs1aZ3AAbayU90yz5M6Cl m3RVInYZAyH0HbLT0oZFIs rZNvE11WAyneQYM1YCHRYr wpLGVbOP2Mn4ekSERgxGEo DEG9YMsajHOpWBZsGUEyRH m5DNOeLVsugVKoJO2gkOlk JfupgHylf8PrhXMhOJyxVF WsGKQrNRnaFAXyQC2TLhWe VWwAMsmmDWytFtE8NDo9YM LSWdLnGnLkKkveNVV9ZZrl ICs0ADt6BNdQBoV1AXA3SI FqBObqBHDcSlsdNWe5DHLj XFxmIEFyaWFsIFxcZmwgXF epT82baItdkN4jRM9wUX5b dSVyRFHjvR9nLB9aQ7HdeO 0uXHBhciANClxlcGljTmVz dERvYzEgDQpcbHRycGFyXG xpbjBccmluMCANClxsdHJj aFxjZjFcZnMyMCBSZWNlaX SlVCEfddWhv9TgPAeikiIm YWJlbGVkIHdpdGggdGhlIH MyxZpbfqUqZ6I5laCyJZ4q RMFyXMTwW9GbCXUtQ22xHU KlyD4jJZJfUL4rOBu5ZTNy KBSpDwqlgZ2wbWNcRXIplI 0yERZkG5KjMtYeq85oaLQ1 prNfGvXpUOIyql2ibC5sJY Rpck5sQUJrb5M1XCCbt9N5 JXNyEB77KQswRW1nYBnfKZ 4xIGNtLCAwLjYgeCAwLjMg jPIiEqXxC32oNjYlUGblTS NtLYTcsSIbKMcdIQP6Yf0n iOJmBGFyqyP1i5IvNSsuAB OyWhpcHMEpEBrykWSvBB9J YRLkNLplipKbAH9DXSNyPY fpMXYbtPPPFGJ8RP2jFLya mKHsbrvlLEChO5IxP6Ienn RojGUgPGQeebBre0pcHCB0 XHNsbXVsdDBcZnMxNlxwYX J2KSd1MNrrRVIjG9PrI2Ve WPsbHSJ5YZJpUmCfGVGqJV JXYtRmPhQgIgS5Zhh7BkBv NAj0MWxcC7TEKSViKRH7XQ E5PFN9LuK8LGj7WGBWMc7p CLRzUTM3OyZ6NHR4CiU7LE xcdCAyIFxcZiBBcmlhbCBc CHFlLWsuqmA6RYSpYVRbuT qxsB2mZw2uDQ4wgFLrWQXq vU7rFY1ePttknPYbQNUwGU 7nmV1wZpdnAXDnVOxoMYXg V18pb1FHk2DkRQ8ENXm1bv QvfakzhL2hXEOxcuCbKGov kELlG9rcF1PuBIHfPjOtTs CoVXx6QNEnbW0yKg5mtLOh hO9uzNPxNYcsIDD7yPWhVN MkTQBpGFZaAJ64VPlICIHo bmFtZSwgbWVkaWNhbCByZW NvcmQgbnVtYmVyIGFuZCBc mPntKyGmBIx5O1AahXmmCU Muf5oxoa9bsUztkPNdy7Tq usPlrwoqCIOqLBSeb53rxD U2fjJxSdOesXx6sJMdYSF0 VR9hbEotlpidgPFeYHq4fT CfLKYpBzDdaSvdj1XtBKig LjQgeCAyLjEgeCAwLjQgY2 0hcH2eAGuvtaErFWJpKM7m JOIyKMEgxVTllT5snuCont DbkTSvsLE6ESRhmO3enU76 ksUimfRYQF2ljWKxVE7QJD BhciANClxjZjBcZnMyMiAN ClxwbGFpblxlcGljTmVzdE IgDpXdcUjvhN05OLWfkMUo SQK0PQ7oCWRcnetiRWMpOU PfKCS1YHlcdK24rFWnMIDp DDQfjJEhqT6Bf5yqRQUlrE FiPPX4MSdcsVFuBHOgIIJu MBniPxUsO0NUUFSlHoLfSV O5XGQcNJq4IFt0FI4ZIyTc HSXxWPQhYsD6EJTyUUi1LU moEA3ZAOJ0Zhb0LAW5KGG4 NTMyOCBcXHQgMiBcXGYgQX UmNSigZNccwSRxOW5rhIgk nuP4KNAkMTlrDIMiMQYpxG udZKXBg9qslwCuUAFwX5j3 U2BkR0ErROaaKw2ypSHkMJ 6MGMVrmAMQBGH8GN0gGWZO ClxsdHJwYXJcbGluMFxyaW 2nWA6TOOo9ewGpMDWgJTjc hqYwVSMeN7KyzsGsWFbjZO Fqem2vcLktTKmjJtFjTHSb s1x3nVR6wBVdoSX1mLOqjZ pnBxKnXU8lwCMgXU5vQFfd UDdttuJje3RqHP44lKEjuc CcroOqVSX8ZwGbUGhkBDMw o6e7qOweU65gb74dychiaX ZcDVAuBQ8vqE7aQhPklmBv Q53pn0fufRGvh7OcdQPfzY lwbGUgdGFuLXBpbmssIHBl EPHpX0UwDBDcTDDkb9Y2TJ Cnd9P6MOBsYd60DDwaFj5a HAjaWQ97NQTpVEdhJTAfC1 InH2O7SVzeNNINcNEun9Vl S3zmRO2euCLpo8MblPk7lK EhNIbvFAXclD3uiV1zPnGa XHBhciANClxwYXIgDQpcY2 TlDSGmGfKsCKuvjGdhxN4o ZAZpJ62nf7FHy2VxPQQaPW cqj5yktKjzo1FpdRBzFDcv EFCxqKGaQMlfhT6oXfIse4 ynzUx1OVnuncD9PYCayp2J OiajFffcwGnlx0QqqIEaBG tlWJUoOIEoVRfoQXKtUN6R IfGiEErZZjsoRVvnTfL1YB y8NTNXNaGnDsOuHgmuFPQ2 ZsOfFEm5MJo3EGnAQaE7SY Z3DNZoEhQsIXGoDspiWIl3 IDIgXFxmIEFyaWFsIFxcZm jyZTsiY99kFbUoDrbuhIPo nkDYFoDIn2e7iJtoH99gz5 8vZJUTjlBry1YatnOzKhxo KOKdOOouQAJaW69zl0XCg5 MjOS9VPZu5hcMegevrtY0p TLRevcSiQZworQHgA0ttO9 KdGJMuSxAiDjDrOKl0WFPy hM6kOp4piRFpxH2ypQDoWD ypLEV5jLQoNJOlVAVrVVZv AD69MBcFTRFfsiInYKwwfN VkaWNhbCByZWNvcmQgbnVt YmVyIGFuZCBcdTgyMjAgXC b9L3BbmPuaRHSly7rvpi54 avXgs8AoaqHqSCQnnEAmYF 5kGykpdL12PTRcCJUlXKGt zWyfJTjkUwOxwlDiQ94lf1 lybEFjf9TpnNXnwDbavRGx dGFuLXBpbmssIHBlZHVuY3 DeMWSvBVFig3N4WUFqq4A0 ZAVwPe3uDHrnLt6fJLkyYM 75DRWzCTloNOUmC4SrG9N3 ZCivFKUPiVEca9ZmM0uyNC 2wjKKll2KhqCf5eNPsFPdr AWQfvK2ndT4sIEShAAAhHM FudjYSXshtHWAiEMlVm6Ht jVhcRKFwG0b5u99tU1smcW XqIKMNJBK0pIZpnwRpiWOf OK2YECHzhiZSHcxoMrGqMx MyMiANClxwbGFpblxlcGlj GgYffBAxLzCyxSmipI76MX CheKQaFQI9MF7xDSTbyxsp NEImWOYkCFT5GSwvrS13jB JwSRSfZVVnlJFcoV0IQYDc EDN6EVdcqD06yWDsHS4IYJ DmZVD0EJUtxJYiQCL0DE9w fQ0KfQ== MICROSCOPIC DESCRIPTION a0fulUQvJQSfvCF1JsPqCH (test code = 3371) Ypg3amr6QjpGXrxIYeNYoh cTXrlnEaju24hUL1rY43BM 4zCGNuBlY2NXPrapT6Bqi3 ZLQfUANgtUIpW696m4rxq6 cucdGbfMQ3gScjSXSduoay YmI8LRlhKUUnlwlnKGc3LI luIHJcsGZ0HVIlfVCvX5Yt MYGtDC9wggr1YDU8USqiJG EuXsW0TCSlrKLlWNQjpJte CWcox342MCW4GlHtJWWvsp QhlQskrP5nGiTaFXHONALl a8MoXSMlTFCpgcjaZIJmBQ Bhcn0= [facility] [id number] 09:50:09 Test Item Value Reference Range Interpretation Comments Case Report (test code Surgical Pathology = 104) Report Case: [id number] Authorizing Provider: Angela Loco Collected: 07/03/2021 03:04 PM MD Brian Ordering Location: [address] Received: 07/06/2021 09:08 AM Service Pathologist: Michelle Fernández MD Specimens: A) - Polyp, Colon - Cecum, x1 taken byhot snare B) - Polyp, Colon - Right/Ascending, x 1 taken by hot snare C) - Polyp, Colon - Right/Ascending, x 1 taken by hot snare, clip x 1 D) - Polyp, Colon - Transverse, x 1 taken by hot snare, clip x 1 DIAGNOSIS (test code = [id number] 3220) FuZzEwMzNcZnRuYmpcdWMx IHtccnRmMVxlcGljOTYwMV xjwfNdJNWhnIPeJ0Uqjryj AXxtAG1aYC1hpXtsfIUbvR ZhYLDeZcXou7upl599vNAd v3saJWJHurxohHm9kMknF3 0sx2M4CehiF86eiQVtDMK0 OYMkTALktGUvGMKsXPK5XF HzzHRuZ8cgOLXwIC9gbrln HKobOSbjMCMhmXM1RQNywC HvP2OjBIRdLCpmGTUeesq2 RjRjVh8quIXcnTnlEVtqZF QcUGZfGTegKGWlOzGjGY5r M11IL24qIWZKQ9FCXOZVZP uGCXWRVI0GL3d7PIRorzLt LSAgVFVCVUxBUiBBREVOT0 7YCYEpsienQDXrIk4yZ72R Z33aSVFAX4qFD3NFN6AYKX fKMdERS8yRLJieIqsYWKWX SajkRCCcBH1zYI3UCFZKIV sKOTLMFPqOWA1EThMIGyII VSROVQVQATMJBF5SIMUylA FyICAtICBORUdBVElWRSBG S9ZkRTtZNN1TSqGLJLMBOY TPZJINUTWnO9BbZHWRGXhN FS4WNXkmYRDshQNsUSLvLK VCZY2SJORJPJcVTK5YW4DY QpTFZelgSL9KCLJcVUOHG1 BTWTpccGFyICAtICBNVUxU SVBMRSBGUkFHTUVOVFMgT0 FzIEZFEIpFGvVEHYTNG93V XHBhciAgLSAgTkVHQVRJVk TiKo7LILuYR4xbM8QAFLFl TJrXYZjKB1sUVF8LCR0EHE gTSgJFB1urqIPhTEBwmkXs tGQfNMKbSVQSOA8GKARCQx LLH7PFKpPEHBVVFPpPVPSK CW8ET4r2SFBewsBxARQjMK CKOAmYFTNmFkPDL36XEyPC KN5MHSCIWhKXOSErWQSOSh 3HBTxtMJUvUF8kXW0BG6DU SVZFIEZPUiBISUdILUdSQU CMCJLFV8XXSQPPNIEIOiGB YGhZR60MYuGIYJTcaa63LT O7RtAuo1T7ATJ4UYRfIRLu f1taRCQocVZgRfDeDlRvKi CgCyvqfOWyFNEuNuSmu2pn v308fOQrh5qzMQBbDlF3kB EjZJAmiQArM681BMZiBYuf s0xls9FyBTYsgNArx5G1NA OWkuxorLg2mPekU00rt5V6 TlihR7odQWPdQFUzI4EjGZ 0aQUJdEyi2DSB4HPK6RJHt QSRjG2JdUL5sKTGvmUCyIZ v0x6ltsQkrCHUrAOF7d0rt UNdkenUyBM9vfu0qeKb6b0 xjczEgRGVmYXVsdCBQYXJh M9PhsXpwFm5aaPj8rCdhXu ntYFR7Ogs9CF5qog79uyo4 jLojAVLbxysqQjQ5FIzfJR UztvjqNZf1KEsrETKgnFK6 EIElyTHbV7IjCDVbLX5jtu i5RMS2EEupYLJdSyI8BLRh nHMlSUWigTbwQElhg253BT Q0TvSqPX3gP4Rww7D6sP2w aXRcZGVmdGFiNzIwXGZvcm 0chZZeUZyiu8CuWLJ3yuI3 qVIasPVoPCYqRsC6MZxbUB 2asc95WTQhNXA6cm1hwPSm qDkkbbQwmKGiVZfnX9VqZN Ujx161WJKcY9AyAAFwp2V9 lnIbKpJnNZPyeIV7seR7NH HoOZ5mhegoi6vuWBefYGcl CSGvgeC8jlZ3OVUzbQImM5 QieR6mSFHvYB0spaeiw8cx FZV3SZvnXTNtERG4DnPwLQ Rou7Nvnui1QpTue5LqgIUg QVqtI48rq812FNGzggDgU8 xwbGFpblxwbGFpblxmMFxm ntM8URMhIIglylhmKYGaJH dlW8uiRcJmPPYtlBjaLWbt f1LpOLDuPOGuDdGnhDCnTQ CcYjk0DLDwiWXkDJLtRmGs Q7iyjuzfAlOOUTGny3fyY5 pjqXTYgRUvE9LkIQfdgeWn NJfsTZzpMUMdDEQ4LC4jSA FhARIact12 CPT Code(s) (test code l2gxwFPeGAMbgLA9XyZsSQ = 3357) Jhs2gck2ChfUMnmDQbWFhy hPIzgfUkur10nRH6gP42MA 4qXBOlQmC5RJCuesU5Cea8 TKDyKVZmoULeY768o9mrv7 nsksJrkBI7sTzwGCSgelnx JoQ1UTtuIRXdjyogBSk2JN bmRUBncUR2RCWbcECwZ9Lf ACYzQH1ojqn4KSO2LMygCD AoTuJ4GWRwqJDiWTGnsOxb AUdqb139VAR0UtMlXYPwyn SitLfwmM0bNpYrIPC0NYWc FDv3AZJwei6= CLINICAL HISTORY (test k9ipcQVmYAHbqKB2WtJdMH code = 3356) Vuf8rxe5ZihJNbyJNiJGic yLDideGxyb52rFX5oJ03FR 2rWMEdQmB7NAPmrsF2Gqk8 QJRmXFFjtRLcC399a6khu5 cdrfInoZY5JNMmJRDjH9Ak RZ8dNTYjuPWpS04zkFIrSL M7YBMwJMTteKNvGHOrBFM3 BYRqeVQbN4aeAKXoCZ7hxq opUUqiLCjnHDDutND7GNJh qJBxJ0GfTFPfKXffLUPbme e8XzDuAp9rlZBrhIvzYLin YXJkXHJpMVxwbGFpblxmcz SbWZCrLSIHqg7tGNMxSbzc eBBtN2chIB3ogNyaEQO0xm NnEIDfBhzrEJZttb2jNESg DfqatMHwK6fjDR6wsZkiMF L0iMUlGOQkmz0= GROSS DESCRIPTION (test e4qspJIhYKTnyFLOOBPiTb code = 3314958642) nmplVsLGPowPSfU2Qqmsvo YKqsEN2sUW7hfCfxlAYjcI BwID1NGDSzZaVeYNLtzMQd tgAbUaZnGHSptIWxaRW0OX IeBM9efylfBFiiNWqlPRWl uwU5LXZcdFCkN5PhGERzZL 8jjtryRVN2DEnolZ2llkBZ NoqjKo6wgDCkqXdtNkDkTf NoYXJzZXQwXGZuaWwgQXJp OQq0iZ1GZmdbV89qa6V2Yh c1WPFeKUKuT6LhFG9fGPZz tUAeA20OOvkaHIV3ZKEFTf nnNSCbWB9Ac9noPCToaTQo FAW7VWgslIOkWBCsHGXfXA a6TXEmHDxqlUGnDX4byNpa JabulXnhm7IblDFvILvlYU WoAXVyPSmtYNBqJD0XIeYs UZaPQtujIMppRvA3FUg6OI KDNkReQgXsLaqcKMQ9MZne IIc4YGw7WIkXSsC0IVO2EV OwSDmzZJJzPysjAJt7VTZu XFxmIEFyaWFsIFxcZmwgXF ucM56ehKvbmV4nSK0jYL7m sTSvQFUldS6nEN1iJ0AtcQ 0uXHBhciANClxlcGljTmVz dERvYzEgDQpcbHRycGFyXG xpbjBccmluMCANClxsdHJj aFxjZjFcZnMyMCBSZWNlaX UdQLThoiEhh2HiJJragtFf YWJlbGVkIHdpdGggdGhlIH EbmDjvbyXuF7E7ewXoAR1e JLIoASCvY0XzDBKzS01aJW OypZ1rSXWbHW9sNUg3TVFk VBTwTknvxE4jmWWdIHVqvI 9jNTTrY7AcPcHgf55itUN0 myGsJsNtSNIxqy4drN0kOY Ftfq1lHXRks4M5OVYft8O4 WOAvAU60NBbmTS8pWOzvSW 4xIGNtLCAwLjYgeCAwLjMg kOLzWgCcK84qSmPjPGhwMD ErANGbrCSxDQvxZRH1Wq6v uPNoACOussD3z9TlPYubDK KjAhczWQDtELpvjLDpRH2A LITrOHyjkkRpAM4CGNRdOM tgJPQjmOEUVLA5MX0sZWyj bATzvcavOUIbK2AiT3Enbr GdrOUeGJQrsfNbk4keGDD5 XHNsbXVsdDBcZnMxNlxwYX M8OFo9YBteXRDgO9ToZ4Qq YImnKMO7BYHmBlSoKYQhNC CUWlXqXmKbMnR5Qet6LtPl VAg9MFlhK9ZKVYJtVNL5EO E4YGD5ZtU1SHi9GVDKDs3z NZWrQHS9KfK0BZG8VoN9SU xcdCAyIFxcZiBBcmlhbCBc FEXiMIqvkyM6QNPeKQGebN nktH7yYv0bZG6ftNTaNKUf yX7sCS7pDrcxxRTzZCNvUG 9nmR7bPyfbAIYhTOyrNQKe T78hy5KVb7FwMY9JUWk4se MsvdiqpC5vEERvrnTtJSqt ePRhU1vqD9OkXOWqDoTzVx TkJMb1QPLxuN9vAj8abCNi cA1haSMyHVcsBBW0dJOcUB CaHDNzHBLqSB56GSnUAKVr bmFtZSwgbWVkaWNhbCByZW NvcmQgbnVtYmVyIGFuZCBc hGedCtQjYPm4P9VewTnjRP Bys0mstv3yqNvlmDHcu7Ml tmOlfsxhIAZdYACgg36kbO J1hdPcMtXxyFv2vSUnSCM5 KN1zlJxhpzaxvRAkFQx3oW XuVXKtSqDxwXvuh7MwQGsb LjQgeCAyLjEgeCAwLjQgY2 3myR8dFDikkbEsRNOnNS6e MYMjDSGasGIxoS5fheCqtj FatYUkjYD2WTSdmA7ihS64 xqGwnfSUQO0npKGpNH8OSP BhciANClxjZjBcZnMyMiAN ClxwbGFpblxlcGljTmVzdE PtBqWlgNqwvM45JWYezZHk JYS1RG0nGZTerfyzXWNjPV BfGPT9AVimqO55kTNvDBNe YBQveAZjvZ8Cm2ltWESprZ TpLRP5VMwsvBSvENXqPQDd JPkaMbGeJ5GMUQHqRpGaDO X7SSIbCUc7DJj8YG8UPmJg MIBmLZItYyP6NGXlCFf5ZR orZK2AYXC5Gwo5XEQ7ZJP1 NTMyOCBcXHQgMiBcXGYgQX VeFJxaGOuzmIXcBJ6nwEar eiM6DJFsYDuxLNPeTYUbdI mnZCQGt9cqyrTpNTWlP1v6 H3OeB4VqDIvjQa2daYUjOW 7IFJUvaCRMEHO2CM1zXJZF ClxsdHJwYXJcbGluMFxyaW 9uNF3GJLz0ibXySWDjVGqg ewWsFEHtY4QagaIwNHhjUC Fzdu9qlRajEUtxMkVnQILs b0p3zRO1wFIxbOU7mABisP ywDxSaSI5uhOLmFE4gBIgz QOtdzbRtv4GkDT14uXEaun WzqbWcMDX7XgKlVTjnKZCi q3o4aShkB59vi41wftnwqO RxTCLaGG1wzI3yJiGzwdPl X05af0xvmSCpy0ZldEAvzU lwbGUgdGFuLXBpbmssIHBl RYCiI0NePGSyLTNfo5N4GF Ypw1P9KCOjIv36ANzwWt7e FRdaSU62PCBtZGpwLYHuU3 PoW8Q9FEzpTKHZaCTet0Vs E0mqSH6doDGys8BftCj4jA SoARsoSCHwdX7oyU4gMcDb XHBhciANClxwYXIgDQpcY2 ShNBPmAvEiKQclrMhzoF1p BSSkI91mk9PAs3CxYEFyLB tsw7bucVgke1LsfPDqDLgz KPXovRXnMNddhI2jMzSno9 avqEv9FGrampH8GXBgok1H VllvKhikuYzdf4AgcFUwMK qvNMRnOHAcNPzlNYSrZD1Y VgCqXEzPVowkQQgzDpJ3KG s4DVTMFgJaZtJgCnalQOO9 YbFbPNq0FBe2SXxNNiU9NQ L7LWSmNzPcHODoJcovMAb2 IDIgXFxmIEFyaWFsIFxcZm heWDukQ60hUgOzTztcdAAt uzEARmVBl4p6bYnyG26oy3 1rDUPTisEjs6JqobFqUqqk NOJkWLtqIQBfQ11xg0DPs7 JaAN0FYOk7rrWghemecE3s DMRwmyOaLGddwZDqM6kaN5 FkOYFkMlPdFkJfYMs3MMZt mK7cLc8jzHJvlV7tyLHhOE jkAND4rZMlIDYuPEXsTFQr BY75VIcTMJJeztBuEHoxbO VkaWNhbCByZWNvcmQgbnVt YmVyIGFuZCBcdTgyMjAgXC t2A8MsmSyhXYAdn4bmnl21 ubZyg6BpnqZhUAZgdIBqSJ 8bJpuvaW55BTHbZWMjWDMd hPcdDMqwDuDlqxAnX44pl4 bmjBWiz5SedGKzaEykeYJv dGFuLXBpbmssIHBlZHVuY3 NbBCKfPVSaq3N8SZXbr2J9 RTJwTg7hXWtnUw8tQZrfVG 80XDElQMtxZUSeK5MfT6E0 HBtgBVOQxEQto9YuT5hfLH 3hlYXkd9TgnWg0mVSmCUjd TTMlrE4wsA7nMDJxSNAoJE UygyQPGclxPGExYLbJv1Wp aTrkZCTiE8q1j02hV3vebT YnTTFGJAK2lNCxmqXcsABr DY9YQSTqiuFWBwqlAbWcUc MyMiANClxwbGFpblxlcGlj PwHvnPBsNmGwbBreyQ62QM QvzWKcRUV6EE5sNWKavhbx CNKnOSJtXQY0WQwgaJ09mO WyPPNwSIQjgJTerU4CBLBf FQK8CIekwN11xKEkKZ0SPY NnWUC8HHVrzBChGFN3KE1s fQ0KfQ== MICROSCOPIC DESCRIPTION u7fovMTqYNOyjPJ5XvJzEJ (test code = 3371) Fft7mgv3PqyRHdxSYaVHoy wLGhxyQgzy32fFQ3nB50US 4wEPBxYmU2UZAgjuS9Ran0 REFdCYLuaGMfJ457q3tmk9 dgxpCwaIE3mAhgVABnjbpa HnY7CGvfHUMptaevDBj5KD fjRISesJS2WJRrpPYzS8Uh IAUvHZ9jqtb5VZR3CCfgDN BbBfK4SRDdkFGcTYXdaPjf HRyza428TLE3VwKeWZYaqh NrxHdwhE7tPzJzITBSDIFl y2HeMOZxRUUcjxsfEGOsRD Bhcn0= [facility] CenterT[facility] [id number] 09:50:09Surgical Pathology Report Case: [id number] Authorizing Provider: Angela Loco Collected: 07/03/2021 03:04 PM MD Brian OrderingLocation: [address] Received: 07/06/2021 09:08 AM Service Pathologist: Michelle Fernández MD Specimens: A) -Polyp, Colon - Cecum, x1 taken byhot snare B) - Polyp, Colon - Right/Ascending, x 1 taken by hot snare C) - Polyp, Colon - Right/Ascending, x 1 taken by hot snare, clip x 1 D) - Polyp, Colon - Transverse, x 1 taken by hot snare, clip x 1 A. COLON, CECAL POLYP, BIOPSY: - TUBULAR ADENOMAB. COLON, RIGHT/ASCENDING POLYP, BIOPSY: - MULTIPLE FRAGMENTS OF TUBULAR ADENOMA- NEGATIVE FOR HIGH-GRADE DYSPLASIA OR MALIGNANCYC. COLON, RIGHT/ASCENDING POLYP, BIOPSY: - MULTIPLE FRAGMENTS OF TUBULAR ADENOMA - NEGATIVE FOR HIGH-GRADE DYSPLASIA OR MALIGNANCYD. COLON, TRANSVERSE POLYP, BIOPSY: - MULTIPLE FRAGMENTS OF TUBULAR ADENOMA - NEGATIVE FOR HIGH-GRADE DYSPLASIA OR MALIGNANCY Signing Pathologist Direct Phone Line: [phone] signed by Michelle Fernández MD on 07/07/2021 at 9:50 [id number] deficiency anemia, unspecified iron deficiency anemiatype A. Polyp, Colon - Cecum.Received in formalin labeled with the patient's name, medical record number and "polyp, colon-cecum" consists of 2 robert-pink, ovoid soft tissue (0.5 x 0.2 x 0.1 cm, 0.6 x 0.3 x 0.3 cm). The specimen is submitted in toto in A1.B. Polyp, Colon - Right/Ascending.Received in formalin labeled with the patient's name, medical record number and "polyp, colon-right ascending" andconsists of multiple robert-pink, irregular soft tissue (2.4 x 2.1 x 0.4 cm in aggregate). The specimen is submitted in toto in B1.C. Polyp, Colon - Right/Ascending.Received in formalin labeled with the patient's name, medical record number and "polyp, colon-right ascending" and consists of multiple robert- pink, pedunculated soft tissue (2.4 x 2.1 x 0.4 cm in aggregate). The specimen is submitted in totoin C1.D. Polyp, Colon - Transverse.Received in formalin labeled with the patient's name, medical record number and "polyp, frhhp-osnhzhmcvw-6 taken by hot snare, clip x1" and consists of multiple robert-pi nk, pedunculated soft tissue (6.0 x 2.2 x 0.4 cm in aggregate). The specimen is submitted in toto in D1-D3.GRICELDA Andrew studentPerformed.POC- Glucose [id number] 08:45:23 Test Item Value Reference Range Interpretation Comments POC-Glucose Meter (test 92 mg/dL 70-110 : TE STED AT [facility] code = 1538) [address] [place] [address], [facility] 30: Inspection And Testing Supervisor/Techni kelle ID = [id number] for ORPHJOEL EDMUNDO Lab Interpretation (test Normal code = 48309-8) [facility]-Glucose [id number] 08:45:23 Test Item Value Reference Range Interpretation Comments POC-Glucose Meter (test 92 mg/dL 70-110 : TE STED AT [facility] code = 1538) [address] [facility], 770 30: Inspection And Testing Supervisor/Techni kelle ID = [id number] for ORPHEY, EDMUNDO Lab Interpretation (test Normal code = 83075-2) [facility]-Glucose [id number] 08:45:23 Test Item Value Reference Range Interpretation Comments POC-Glucose Meter (test 92 mg/dL 70-110 : TE STED AT [facility] code = 1538) [address] [place], 7[address] 30: Inspection And Testing Supervisor/Techni kelle ID = [id number] for EDMUNDO BARRAGAN Lab Interpretation (test Normal code = 84376-9) [facility] [id number] 08:45:23 Test Item Value Reference Range Interpretation Comments POC-GLUCOSE METER 92 mg/dL 70-110 : TESTED A T [facility] 6720 (BEAKER) (test code = YUDY Vaca [facility], 1538) [address]: Inspection And Testing Supervisor/Techni kelle ID = [id number] for CELINA MALDONADO EDMUNDO RAD, CHEST, 1 VIEW, NON [id number] 07:59:00Reason for exam:->post-opShould this be performed at the bedside?->Yes [facility] : 1955 Sex: FFINAL REPORT RAD, [...] 07:59:51 Electronically signed by: BAYRON COSME MD 07/04/2021 07:59 AM BASIC METABOLIC [id number] 06:24:45 Test Item Value Reference Range Interpretation [...] S NOT APPLICABLE FOR DIALYSIS PATIEN TS. Inspection And Testing Supervisor ID - [id number] 06:15:51 Test Item Value Reference Range Interpretation Comments MAGNESIUM (BEAKER) (test code = 1.9 mg/dL 1.6-2.6 627) Inspection And Testing Supervisor ID - [id number] 06:15:51 Test Item Value Reference Range Interpretation Comments PHOSPHORUS (BEAKER) (test code = 3.1 mg/dL 2.3-4.7 604) Inspection And Testing Supervisor ID - DBCBC (HEMOGRAM ONLY)2021-07-04 05:44:21 Test [...] Not Detected, (test code = Negative, See 41715-9) external report for linked test [facility] (test code = 10586-1) BRANDI (test code = Negative result for [...] of the Act. Fact Sheet for Healthcare Providers:https://www.CTQuan/sites/default/f radha/product/documents/F act_Sheet_HC_Providers_L bbl_AVHN-NpV-7.pdf Fact Sheet for Healthcare Patients:https://www.BlikBook/sites/default/fi les/product/documents/Fa ct_Sheet_Patients_Lyra_S ARS-CoV-2.pdf Performing Laboratory:[facility] [place] [address] [facility]As[facility]omatic ONLY[facility]2021-07-04 00:21:04 Test Item Value Reference Range Interpretation Comments SARS-COV2/RT-PCR Negative Not Detected, (test code = Negative, See 39101-7) external report for linked test SARS-COV-2 [facility] FILIPE PERFORMING LAB (test code = 11954-3) BRANDI (test code = Negative result for [...] of the Act. Fact Sheet for Healthcare Providers:https://www.CTQuan/sites/default/f radha/product/documents/F act_Sheet_HC_Providers_L fhn_VPMI-IsL-6.pdf Fact Sheet for Healthcare Patients:https://www.BlikBook/sites/default/fi les/product/documents/Fa ct_Sheet_Patients_Lyra_S ARS-CoV-2.pdf Performing Laboratory:[facility] [place] [address] [facility] (Asymptomatic ONLY)2021-07-04 00:21:04 Test Item Value Reference Range Interpretation Comments SARS-COV2/RT-PCR Negative Not Detected, (test code = Negative, See 09670-8) external report for linked test SARS-COV-2 [facility] PERFORMING LAB (test code = 78677-2) BRANDI (test code = Negative result for [...] of the Act. Fact Sheet for Healthcare Providers:https://www.CTQuan/sites/default/f radha/product/documents/F act_Sheet_HC_Providers_L xrq_UGNX-AkO-7.pdf Fact Sheet for Healthcare Patients:https://www.BlikBook/sites/default/fi les/product/documents/Fa ct_Sheet_Patients_Lyra_S ARS-CoV-2.pdf Performing Laboratory:[facility], [place] [address] [place], [place] [address]ARS-COV2/RT-PCR ([facility])2021-07-04 00:21:04 Test Item Value Reference Range Interpretation Comments SARS-COV2/RT-PCR (test Negative Not Detected, Negative, code = 7163248) See external report for linked test SARS-COV-[address] [facility] FIL[facility] (test code = 8091708) Negative result for this test determines that [...] 564(g) of the Act.Fact Sheet for Healthcare Providers:https://www.ShedWorx.Biothera/sites/default/files/product/documents/Fact_Shee v_AS_Uppihvmkw_Sxsz_FQAC-UlJ-2.pdfFact Sheet for Healthcare Patients:https://www.ShedWorx.Biothera/sites/default/files/product/ documents/Rmxd_Jzfmy_Penscyjs_Ahul_FUHZ-UiG-2.pdfPerforming Laboratory:[facility], [place] [address]OSYN-UVEXHHP METER 2021-07-03 21:29:18 Test Item Value Reference Range Interpretation Comments POC-GLUCOSE METER 169 mg/dL 70-110 H : TESTED A T [facility] 6720 (BEAKER) (test code = [facility] Nola [facility], 1538) [address]: Inspection And Testing Supervisor/Techni kelle ID = [id number] for Co Keyla granger POCT-GLUCOSE [id number] 17:51:28 Test Item Value Reference Range Interpretation Comments POC-GLUCOSE METER 110 mg/dL 70-110 : TESTED A T [facility] 6720 (BEAKER) (test code = [facility], 1538) [address]: Inspection And Testing Supervisor/Techni kelle ID = [id number] for OR EDMUNDO BOWIE POCT-GLUCOSE [id number] 16:18:01 Test Item Value Reference Range Interpretation Comments POC-GLUCOSE METER 78 mg/dL 70-110 : TESTED A T [facility] 6720 (BEAKER) (test code = [facility], 1538) [address]: Inspection And Testing Supervisor/Techni kelle ID = [id number] for Sarwat Arenas POC-Glucose [id number] 13:43:00 Test Item Value Reference Range Interpretation Comments POC-Glucose Meter (test 82 mg/dL 70-110 : TE STED AT [facility] code = 1538) [address] [facility], 770 30: Inspection And Testing Supervisor/Techni kelle ID = [id number] for RENETTA STEARNS Lab Interpretation (test Normal code = 15990-6) [facility] [id number] 13:43:00 Test Item Value Reference Range Interpretation Comments POC-GLUCOSE METER 82 mg/dL 70-110 : TESTED A T [facility] 6720 ([facility]) (test code = [facility], 1538) [address]: Inspection And Testing Supervisor/Techni kelle ID = [id number] for RENETTA STEARNS POCT-GLUCOSE [id number] 08:55:17 Test Item Value Reference Range Interpretation Comments POC-GLUCOSE METER 85 mg/dL 70-110 : TESTED A T [facility] 6720 ([facility]) (test code = [facility], 1538) [address]: Inspection And Testing Supervisor/Techni kelle ID = [id number] for OREDMUNDO REINA RAD, CHEST, 1 VIEW, NON [id number] 07:19:00Reason for exam:->post-opShould this be performed at the bedside?->Yes [facility] : 1955 Sex: FFINAL REPORT RAD, [...] disease, atelectasis, or pleural effusion. Signed: Boogie Conteheport Verified Date/Time: 07/03/2021 07:19:27 Reading Location: [facility] Radiology Reading Room BASIC METABOLIC [id number] 04:12:43 Test Item Value Reference Range Interpretation [...] S NOT APPLICABLE FOR DIALYSIS PATIEN TS. Inspection And Testing Supervisor ID - RAKAN [id number] 03:43:29 Test Item Value Reference Range Interpretation Comments MAGNESIUM (BEAKER) (test code = 2.1 mg/dL 1.6-2.6 627) Inspection And Testing Supervisor ID - RAKAN [id number] 03:43:29 Test Item Value Reference Range Interpretation Comments PHOSPHORUS (BEAKER) (test code = 3.4 mg/dL 2.3-4.7 604) Inspection And Testing Supervisor ID - RAKAN WCBC (HEMOGRAM ONLY)2021-07-03 03:25:24 Test Item Value [...] WBC 0-0 (test code = 413) POC-Glucose [id number] 21:37:50 Test Item Value Reference Range Interpretation Comments POC-Glucose Meter (test 97 mg/dL 70-110 : TE STED AT [facility] code = 1538) [address] [facility], 770 30: Inspection And Testing Supervisor/Techni kelle ID = [id number] for MACKENZIE WASHINGTON Lab Interpretation (test Normal code = 59389-5) [facility] [id number] 21:37:50 Test Item Value Reference Range Interpretation Comments POC-GLUCOSE METER 97 mg/dL 70-110 : [facility] ([facility]ER[facility] (test code = [facility], 153) [address]: Inspection And Testing Supervisor/Techni kelle ID = [id number] for MACKENZIE SHAFER POCT-GLUCOSE [id number] 18:00:54 Test Item Value Reference Range Interpretation Comments POC-GLUCOSE METER 166 mg/dL 70-110 H : TESTED A T [facility] 6720 (BEAKER) (test code = [facility], 1538) [address]: Inspection And Testing Supervisor/Techni kelle ID = [id number] for Ba rrera, Kayla POCT-GLUCOSE [id number] 13:01:12 Test Item Value Reference Range Interpretation Comments POC-GLUCOSE METER 169 mg/dL 70-110 H : TESTED A T [facility] 6720 (BEAKER) (test code = [facility], 153) [address]: Inspection And Testing Supervisor/Techni kelle ID = [id number] for Ba rrera, Kayla POC-Glucose [id number] 08:45:07 Test Item Value Reference Range Interpretation Comments POC-Glucose Meter (test 134 mg/dL 70-110 H : TE STED AT [facility] code = 1538) [address] [facility], 770 30: Inspection And Testing Supervisor/Techni kelle ID = [id number] for FreitasNawaf gracia a Lab Interpretation (test Abnormal code = 55462-6) [facility]PO[facility] [id number] 08:45:07 Test Item Value Reference Range Interpretation Comments POC-GLUCOSE METER 134 mg/dL 70-110 H : TESTED A T [facility] 6720 (BEAKER) (test code = [facility], 153) [address]: Inspection And Testing Supervisor/Techni kelle ID = [id number] for Ba rrera, Kayla RAD, CHEST, 1 VIEW, NON [id number] 08:36:00Reason for exam:->post-opShould this be performed at the bedside?->Yes [facility] 1955 Sex: FFINAL REPORT RAD, [...] MDReport Verified Date/Time: 07/02/2021 08:36:36 Reading Location: [facility] Radiology Reading Room Electronically signedby: BOOGIE CONTEH MD on 07/02/2021 08:36 AMBasic Metabolic [id number] 07:06:58 Test Item Value Reference Range Interpretation Comments Sodium (test code = 137 meq/L 752-802 6231-2) Potassium (test code = 3.9 meq/L 3.5-5.1 2823-3) Chloride (test code = 101 meq/L 98-107 2075-0) CO2 (test code = 28 meq/L 22-29 2028-9) BUN (test code = 23 mg/dL 7-21 H 3094-0) Creatinine (test code 3.16 mg/dL 0.57-1.25 H = 2160-0) Glucose (test code = 150 mg/dL 70-105 H 2345-7) Calcium (test code = 8.1 mg/dL 8.4-10.2 L 19980-2) EGFR (test code = 15 mL/min/1.73 [place] [address]-5) NOT ACCURATE CREATININE CLEARANCE IN PREDICTING GLOMERULAR FILTRATION RATE . ESTIMATED GFR I S NOT APPLICABLE FOR DIALYSIS PATIENTS. BRANDI (test code = BRANDI) Inspection And Testing Supervisor ID - LIANA L Lab Interpretation Abnormal (test code = 11271-9) [facility] CenterBASIC METABOLIC [id number] 07:06:58 Test Item Value Reference Range Interpretation [...] S NOT APPLICABLE FOR DIALYSIS PATIEN TS. Inspection And Testing Supervisor ID - LIANA [id number] 07:06:52 Test Item Value Reference Range Interpretation Comments Magnesium (test code = 1.9 mg/dL 1.6-2.6 81534-7) BRANDI (test code = BRANDI) Inspection And Testing Supervisor ID - LIANA L Lab Interpretation (test Normal code = 01673-2) [facility] CenterPhosphorus2022-03-31 07:06:52 Test Item Value Reference Range Interpretation Comments Phosphorus (test code = 2.6 mg/dL 2.3-4.7 2777-1) BRANDI (test code = BRANDI) Inspection And Testing Supervisor ID - PIKEZIA L Lab Interpretation (test Normal code = 62107-0) [facility] CenterMAGNESIUM2022-03-31 07:06:52 Test Item Value Reference Range Interpretation Comments MAGNESIUM (BEAKER) (test code = 1.9 mg/dL 1.6-2.6 627) Inspection And Testing Supervisor ID - PIKEZIA [id number] 07:06:52 Test Item Value Reference Range Interpretation Comments PHOSPHORUS (BEAKER) (test code = 2.6 mg/dL 2.3-4.7 604) Inspection And Testing Supervisor ID - LIANA LCBC (Hemogram only)2021-07-02 05:56:49 Test Item Value Reference Range Interpretation Comments WBC (test code = 6690-2) 4.6 See_Comment [A utomated message] The system IAMINTOIT generated this result transmitted ref erence range: 3.5 - 10 .5 K/L. The refe rence range was not u sed to interpret this result as normal/abnor mal. RBC (test code = 789-8) 2.50 See_Comment L [Au tomated message] The system IAMINTOIT generated this result transmitted ref erence range: 3.93 - 5 .22 M/L. The refe rence range was not u sed to interpret this result as normal/abnor mal. MCHC (test code = 786-4) 31.9 See_Comment L [A utomated message] The system IAMINTOIT generated this result transmitted ref erence range: [...] L [Aut omated message] 777-3) The system IAMINTOIT generated this result transmitted ref erence range: 150 - 45 0 K/CU MM. The referen ce range was not u sed to interpret this result as normal/abnor mal. MPV (test code = 11.3 fL 9.4-12.3 60216-6) nRBC (test code = 413) 0 See_Comment [Aut omated message] The system IAMINTOIT generated this result transmitted ref erence range: 0 - 0 /1 00 WBC. The refere nce range was not u sed to interpret this result as normal/abnor mal. Lab Interpretation (test Abnormal code = 55997-7) [facility] (HEMOGRAM ONLY)2021-07-02 05:56:49 Test Item Value Reference [...] WBC 0-0 (test code = 413) POCT-GLUCOSE [id number] 21:57:03 Test Item Value Reference Range Interpretation Comments POC-GLUCOSE METER 179 mg/dL 70-110 H : TESTED A T [facility] 6720 (BEAKER) (test code = [place], 1538) [address]: Inspection And Testing Supervisor/Techni kelle ID = [id number] for KARTHIK DANIELS MACKENZIE POCT-GLUCOSE [id number] 17:59:08 Test Item Value Reference Range Interpretation Comments POC-GLUCOSE METER 208 mg/dL 70-110 H : TESTED A T [facility] 6720 (BEAKER) (test code = YUDY [place] [facility], 1538) [address]: Inspection And Testing Supervisor/Techni kelle ID = [id number] for Loco Hicks POCT-GLUCOSE [id number] 13:37:14 Test Item Value Reference Range Interpretation Comments POC-GLUCOSE METER 118 mg/dL 70-110 H : TESTED A T [facility] 6720 (AKASH) (test code = YUDY Vaca [facility], 1538) [address]: Inspection And Testing Supervisor/Techni kelle ID = [id number] for Millie Toledo RAD, CHEST, 1 VIEW, NON [id number] 09:58:00Reason for exam:->post-opShould this be performed at the bedside?->Yes [facility] : 1955 Sex: FFINAL REPORT RAD, [...] Conteh Verified Date/Time: 07/01/2021 09:58:13 Reading Location: [facility] Radiology Reading Room POC-Glucose [id number] 08:48:09 Test Item Value Reference Range Interpretation Comments POC-Glucose Meter (test 127 mg/dL 70-110 H : TE STED AT [facility] code = 1538) [address] [facility], 770 30: Inspection And Testing Supervisor/Techni kelle ID = [id number] for Loco Chapman Lab Interpretation (test Abnormal code = 04655-5) [facility]PO[facility] [id number] 08:48:09 Test Item Value Reference Range Interpretation Comments POC-GLUCOSE METER 127 mg/dL 70-110 H : TESTED A T [facility] 6720 (BEAKER) (test code = YUDY [place] [facility], 1538) [address]: Inspection And Testing Supervisor/Techni kelle ID = [id number] for Loco Hicks Basic Metabolic [id number] 06:34:36 Test Item Value Reference Range Interpretation Comments Sodium (test code = 134 meq/L 136-145 L 2951-2) Potassium (test code = 4.2 meq/L 3.5-5.1 2823-3) Chloride (test code = 99 meq/L 98-107 2075-0) CO2 (test code = 25 meq/L 22-29 8-9) BUN (test code = 32 mg/dL 7-21 H 3094-0) Creatinine (test code 4.33 mg/dL 0.57-1.25 H = 2160-0) Glucose (test code = 167 mg/dL 70-105 H 2345-7) Calcium (test code = 8.2 mg/dL 8.4-10.2 L 98137-6) EGFR (test code = 10 mL/min/1.[place] [address]-3) NOT ACCURATE CREATININE CLEARANCE IN PREDICTING GLOMERULAR FILTRATION RATE . ESTIMATED GFR I S NOT APPLICABLE FOR DIALYSIS PATIENTS. BRANDI (test code = BRANDI) Inspection And Testing Supervisor ID - PIAYA L Lab Interpretation Abnormal (test code = 93429-6) [facility] CenterBASI [facility]OLIC [id number] 06:34:36 Test Item Value Reference Range Interpretation Comments SODIUM (BEAKER) 134 meq/L 136-145 L (test code = 381) POTASSIUM (BEAKER) 4.2 meq/L 3.5-5.1 (test code = 379) CHLORIDE (BEAKER) 99 meq/L 98-107 (test code = 382) CO2 (BEAKER) (test 25 meq/L 22-29 code = 355) BLOOD UREA NITROGEN 32 [...] S NOT APPLICABLE FOR DIALYSIS PATIEN TS. Inspection And Testing Supervisor ID - LIANA [id number] 06:26:43 Test Item Value Reference Range Interpretation Comments Magnesium (test code = 2.1 mg/dL 1.6-2.6 21450-2) BRANDI (test code = BRANDI) Inspection And Testing Supervisor ID - LIANA L Lab Interpretation (test Normal code = 03183-7) [facility] CenterPhosphorus2022-03-30 06:26:43 Test Item Value Reference Range Interpretation Comments Phosphorus (test code = 3.6 mg/dL 2.3-4.7 2777-1) BRANDI (test code = BRANDI) Inspection And Testing Supervisor ID - LIANA L Lab Interpretation (test Normal code = 56589-9) [facility]MAG[facility]2022-03-30 06:26:43 Test Item Value Reference Range Interpretation Comments MAGNESIUM (BEAKER) (test code = 2.1 mg/dL 1.6-2.6 627) Inspection And Testing Supervisor ID - LIANA [id number] 06:26:43 Test Item Value Reference Range Interpretation Comments PHOSPHORUS (BEAKER) (test code = 3.6 mg/dL 2.3-4.7 604) Inspection And Testing Supervisor ID - LIANA LCBC (Hemogram only)2021-07-01 05:41:20 Test Item Value Reference Range Interpretation Comments WBC (test code = 6690-2) 4.8 See_Comment [A utomated message] The system IAMINTOIT generated this result transmitted ref erence range: 3.5 - 10 .5 K/L. The refe rence range was not u sed to interpret this result as normal/abnor mal. RBC (test code = 789-8) 2.60 See_Comment L [Au tomated message] The system IAMINTOIT generated this result transmitted ref erence range: 3.93 - 5 .22 M/L. The refe rence range was not u sed to interpret this result as normal/abnor mal. MCHC (test code = 786-4) 32.1 See_Comment L [A utomated message] The system [employer] generated this result transmitted ref erence range: [...] L [Aut omated message] 777-3) The system [employer] generated this result transmitted ref erence range: 150 - 45 0 K/CU MM. The referen ce range was not u sed to interpret this result as normal/abnor mal. MPV (test code = 11.3 fL 9.4-12.3 22195-2) nRBC (test code = 413) 0 See_Comment [Aut omated message] The system [employer] generated this result transmitted ref erence range: 0 - 0 /1 00 WBC. The refere nce range was not u sed to interpret this result as normal/abnor mal. Lab Interpretation (test Abnormal code = 96056-6) [facility] (HEMOGRAM ONLY)2021-07-01 05:41:20 Test Item Value Reference [...] WBC 0-0 (test code = 413) POCT-GLUCOSE [id number] 21:14:47 Test Item Value Reference Range Interpretation Comments POC-GLUCOSE METER 159 mg/dL 70-110 H : TESTED A T [facility] 6720 (BEAKER) (test code = QUIQUEANTELMO Vaca [facility], 1538) [address]: Inspection And Testing Supervisor/Techni kelle ID = [id number] for RO FRANCES, MACKENZIE RAD, ABDOMEN/KUB, 1 VIEW [id number] 18:59:00Reason for exam:- >constipationShould this be performed at the bedside?->Yes [facility]Y : 1955 Sex: FFINAL REPORT Exam: RAD, ABDOMEN/KUB, 1 VIEW APDate: 06/30/2021 6:58PM Indication:constipation COMPARISON: 06/24/2021 DISCUSSION/IMPRESSION: The lower thorax is within normal limits. Nonspecific bowel gas pattern. No evidence of free air within the limitations of this study. Signed: Kb Gregorio Verified Date/Time: 06/30/2021 18:59:30 Reading Location: [address] Transitional Reading Room POCT-GLUCOSE [id number] 17:39:03 Test Item Value Reference Range Interpretation Comments POC-GLUCOSE METER 204 mg/dL 70-110 H : TESTED A T [facility] 6720 (BEAKER) (test code = QUIQUEANTELMO Nola [facility], 1538) 76159: Inspection And Testing Supervisor/Techni kelle ID = [id number] for OR PHEY, EDMUNDO POCT-GLUCOSE [id number] 12:35:41 Test Item Value Reference Range Interpretation Comments POC-GLUCOSE METER 136 mg/dL 70-110 H : TESTED A T [facility] 6720 (BEAKER) (test code = YUDY Vaca [facility], 1538) 79608: Inspection And Testing Supervisor/Techni kelle ID = [id number] for OR PHEY, EDMUNDO RAD, CHEST, 1 VIEW, NON [id number] 09:21:00Reason for exam:->post-opShould this be performed at the bedside?->Yes [facility] : 1955 Sex: FFINAL REPORT RAD, [...] change from prior exam. Signed: Boogie Conteh MDReport Verified Date/Time: 06/30/2021 09:21:42 Reading Location: [facility] Radiology Reading Room POCT-GLUCOSE [id number] 08:26:49 Test Item Value Reference Range Interpretation Comments POC-GLUCOSE METER 132 mg/dL 70-110 H : TESTED A T [facility] 6720 (BEAKER) (test code = YUDY Vaca [facility], 1538) 57280: Inspection And Testing Supervisor/Techni kelle ID = [id number] for OR EDMUNDO BOWIE BASIC METABOLIC [id number] 05:31:46 Test Item Value Reference Range Interpretation [...] S NOT APPLICABLE FOR DIALYSIS PATIEN TS. Inspection And Testing Supervisor ID - LIANA FJEKKMDAON4342-89-55 05:28:01 Test Item Value Reference Range Interpretation Comments MAGNESIUM (BEAKER) (test code = 1.8 mg/dL 1.6-2.6 627) Inspection And Testing Supervisor ID - LIANA WMKOSZBZUFA5201-79-52 05:28:01 Test Item Value Reference Range Interpretation Comments PHOSPHORUS (BEAKER) (test code = 2.6 mg/dL 2.3-4.7 604) Inspection And Testing Supervisor ID - LIANA LCBC (HEMOGRAM ONLY)2021-06-30 05:03:10 [...] 0-0 (test code = 413) Prepare Leuko-Red [id number] 23:54:00 Test Item Value Reference Range Interpretation Comments CROSSMATCH (test code = 2264) COMPATIBLE Unit ABO (test code = O Pos 5530800) UNIT NUMBER (test code = [id number] 934-0) Status (test code = 8520425) TX_TIMEINCHART Blood Bank Product (test code RED BLOOD CELLS = 2263) PRODUCT CODE (test code = [id number] 933-2) [facility] [id number] 23:54:00 Test Item Value Reference Range Interpretation Comments CROSSMATCH (test code = 2264) COMPATIBLE Unit ABO (test code = O Pos 9031312) UNIT NUMBER (test code = [id number] 934-0) Status (test code = 3420269) TX_TIMEINCHART Blood Bank Product (test code RED BLOOD CELLS = 2263) PRODUCT CODE (test code = S0591O66 933-2) [facility] [id number] 23:54:00 Test Item Value Reference Range Interpretation Comments CROSSMATCH (test code = 2264) COMPATIBLE Unit ABO (test code = O Pos 9285591) UNIT NUMBER (test code = [id number] 934-0) Status (test code = 8032404) TX_TIMEINCHART Blood Bank Product (test code RED BLOOD CELLS = 2263) PRODUCT CODE (test code = [id number] 933-2) [facility] Leuko-Red [id number] 23:54:00 Test Item Value Reference Range Interpretation Comments CROSSMATCH (test code = 2264) COMPATIBLE Unit ABO (test code = O Pos 9599307) UNIT NUMBER (test code = [id number] 934-0) Status (test code = 2714499) TX_TIMEINCHART Blood Bank Product (test code RED BLOOD CELLS = 2263) PRODUCT CODE (test code = Z3629W09 933-2) [facility]Red [id number] 23:54:00 Test Item Value Reference Range Interpretation Comments CROSSMATCH (test code = 2264) COMPATIBLE Unit ABO (test code = O Pos 3269745) UNIT NUMBER (test code = [id number] 934-0) Status (test code = 5946308) TX_TIMEINCHART Blood Bank Product (test code RED BLOOD CELLS = 2263) PRODUCT CODE (test code = J9162U48 933-2) [facility] Leuko[facility]Red [id number] 23:54:00 Test Item Value Reference Range Interpretation Comments CROSSMATCH (test code = 2264) COMPATIBLE Unit ABO (test code = O Pos 7738185) UNIT NUMBER (test code = [id number] 934-0) Status (test code = 8684658) [facility] Blood Bank Product (test code RED BLOOD CELLS = 2263) PRODUCT CODE (test code = C2124L34 933-2) [facility] Leuko[facility]Red [id number] 23:54:00 Test Item Value Reference Range Interpretation Comments CROSSMATCH (test code = 2264) COMPATIBLE Unit ABO (test code = O Pos 4759146) UNIT NUMBER (test code = [id number] 934-0) Status (test code = 0929369) [facility] Blood Bank Product (test code RED BLOOD CELLS = 2263) PRODUCT CODE (test code = Q3635Z38 933-2) [facility] [id number] 22:04:06 Test Item Value Reference Range Interpretation Comments POC-GLUCOSE METER 149 mg/dL 70-110 H : TESTED A T [facility] 6720 (BEAKER) (test code = [facility], 153) [address]602: Inspection And Testing Supervisor/Techni kelle ID = [id number] for [place]err[place], Ti pastora POCT-GLUCOSE [id number] 17:55:17 Test Item Value Reference Range Interpretation Comments POC-GLUCOSE METER 150 mg/dL 70-110 H : TESTED A T [facility] 6720 (BEAKER) (test code = [facility], 1538) 43676: Inspection And Testing Supervisor/Techni kelle ID = [id number] for OR PHEY, EDMUNDO POCT-GLUCOSE [id number] 15:31:47 Test Item Value Reference Range Interpretation Comments POC-GLUCOSE METER 155 mg/dL 70-110 H : TESTED A T [facility] 6720 (BEAKER) (test code = [facility], 1538) 04799: Inspection And Testing Supervisor/Techni kelle ID = [id number] for OR PHEY, EDMUNDO RAD, CHEST, 1 VIEW, NON [id number] 10:41:00Reason for exam:->post-opShould this be performed at the bedside?->Yes [facility] : 1955 Sex: FFINAL REPORT RAD, [...] Conteh Verified Date/Time: 06/29/2021 10:41:18 Reading Location: [facility] Radiology Reading Room Electronical ly signed by: BOOGIE CONTEH MD on 06/29/2021 10:41 AMPOC-Glucose meter 2021-06-29 08:51:04 Test Item Value Reference Range Interpretation Comments POC-Glucose Meter (test 208 mg/dL 70-110 H : TE STED AT [facility] code = 1538) 6720 [facility], 770 30: Inspection And Testing Supervisor/Techni kelle ID = [id number] for EDMUNDO BARRAGAN Lab Interpretation (test Abnormal code = 82593-9) [facility] [id number] 08:51:04 Test Item Value Reference Range Interpretation Comments POC-Glucose Meter (test 208 mg/dL 70-110 H : TE STED AT [facility] code = 1538) [address] [place] [address] [facility], 770 30: Inspection And Testing Supervisor/Techni kelle ID = [id number] for EDMUNDO BARRAGAN Lab Interpretation (test Abnormal code = 56705-4) [facility] CenterPOCT[facility] [id number] 08:51:04 Test Item Value Reference Range Interpretation Comments POC-GLUCOSE METER 208 mg/dL 70-110 H : TESTED A T [facility] 6720 (BEAKER) (test code = YUDY Vaca [facility], 1538) 52262: Inspection And Testing Supervisor/Techni kelle ID = [id number] for EDMUNDO JACKSON Basic Metabolic [id number] 06:07:27 Test Item Value Reference Range Interpretation Comments Sodium (test code = 133 meq/L 136-145 L 2951-2) Potassium (test code = 4.3 meq/L 3.5-5.1 2823-3) Chloride (test code = 99 meq/L 98-107 2075-0) CO2 (test code = 24 meq/L 22-29 2028-9) BUN (test code = 37 mg/dL 7-21 H 3094-0) Creatinine (test code 4.75 mg/dL 0.57-1.25 H = 2160-0) Glucose (test code = 257 mg/dL 70-105 H 2345-7) Calcium (test code = 8.0 mg/dL 8.4-10.2 L 13159-0) EGFR (test code = 9 mL/min/1.73 [place] [address]-0) NOT ACCURATE CREATININE CLEARANCE IN PREDICTING GLOMERULAR FILTRATION RATE . ESTIMATED GFR I S NOT APPLICABLE FOR DIALYSIS PATIENTS. BRANDI (test code = BRANDI) Inspection And Testing Supervisor ID - HIEN M Lab Interpretation Abnormal (test code = 18600-6) [facility] Metabolic [id number] 06:07:27 Test Item Value Reference Range Interpretation Comments Sodium (test code = 133 meq/L 136-145 L 2951-2) Potassium (test code = 4.3 meq/L 3.5-5.1 2823-3) Chloride (test code = 99 meq/L 98-107 2075-0) CO2 (test code = 24 meq/L 22-29 2028-9) BUN (test code = 37 mg/dL 7-21 H 3094-0) Creatinine (test code 4.75 mg/dL 0.57-1.25 H = 2160-0) Glucose (test code = 257 mg/dL 70-105 H 2345-7) Calcium (test code = 8.0 mg/dL 8.4-10.2 L 33294-6) EGFR (test code = 9 mL/min/1.[place] [address]-8) NOT ACCURATE CREATININE CLEARANCE IN PREDICTING GLOMERULAR FILTRATION RATE . ESTIMATED GFR I S NOT APPLICABLE FOR DIALYSIS PATIENTS. BRANDI (test code = BRANDI) Inspection And Testing Supervisor ID - HIEN M Lab Interpretation Abnormal (test code = 23569-9) [facility] Metabolic [id number] 06:07:27 Test Item Value Reference Range Interpretation Comments Sodium (test code = 133 meq/L 136-145 L 2951-2) Potassium (test code = 4.3 meq/L 3.5-5.1 2823-3) Chloride (test code = 99 meq/L 98-107 2075-0) CO2 (test code = 24 meq/L 22-29 8-9) BUN (test code = 37 mg/dL 7-21 H 3094-0) Creatinine (test code 4.75 mg/dL 0.57-1.25 H = 2160-0) Glucose (test code = 257 mg/dL 70-105 H 2345-7) Calcium (test code = 8.0 mg/dL 8.4-10.2 L 55375-6) EGFR (test code = 9 mL/min/1.[place] [address]-9) NOT ACCURATE CREATININE CLEARANCE IN PREDICTING GLOMERULAR FILTRATION RATE . ESTIMATED GFR I S NOT APPLICABLE FOR DIALYSIS PATIENTS. BRANDI (test code = BRANDI) Inspection And Testing Supervisor ID - HIEN M Lab Interpretation Abnormal (test code = 77526-2) [facility] METABOLIC [id number] 06:07:27 Test Item Value Reference Range Interpretation [...] S NOT APPLICABLE FOR DIALYSIS PATIEN TS. Inspection And Testing Supervisor ID - HIEN YLuekiftngk8880-68-13 06:05:44 Test Item Value Reference Range Interpretation Comments Phosphorus (test code = 2.5 mg/dL 2.3-4.7 2777-1) BRANDI (test code = BRANDI) Inspection And Testing Supervisor ID - HIEN M Lab Interpretation (test Normal code = 98469-5) [facility]2022-[facility]-28 06:05:44 Test Item Value Reference Range Interpretation Comments Phosphorus (test code = 2.5 mg/dL 2.3-4.7 2777-1) BRANDI (test code = BRANDI) Inspection And Testing Supervisor ID - HIEN M Lab Interpretation (test Normal code = 87747-4) [facility]2022-03-28 06:05:44 Test Item Value Reference Range Interpretation Comments Phosphorus (test code = 2.5 mg/dL 2.3-4.7 2777-1) BRANDI (test code = BRANDI) Inspection And Testing Supervisor ID - HIEN M Lab Interpretation (test Normal code = 48133-5) [facility]OS[facility]US2022-03-28 06:05:44 Test Item Value Reference Range Interpretation Comments PHOSPHORUS (BEAKER) (test code = 2.5 mg/dL 2.3-4.7 604) Inspection And Testing Supervisor ID - HIEN DHlzfmclzq8041-83-93 06:05:43 Test Item Value Reference Range Interpretation Comments Magnesium (test code = 2.2 mg/dL 1.6-2.6 58825-2) BRANDI (test code = BRANDI) Inspection And Testing Supervisor ID - HIEN M Lab Interpretation (test Normal code = 25530-3) [facility]2022-03-28 06:05:43 Test Item Value Reference Range Interpretation Comments Magnesium (test code = 2.2 mg/dL 1.6-2.6 82718-1) BRANDI (test code = BRANDI) Inspection And Testing Supervisor ID - HIEN M Lab Interpretation (test Normal code = 07507-8) [facility]2022-03-28 06:05:43 Test Item Value Reference Range Interpretation Comments Magnesium (test code = 2.2 mg/dL 1.6-2.6 77137-4) BRANDI (test code = BRANDI) Inspection And Testing Supervisor ID - HIEN M Lab Interpretation (test Normal code = 02137-5) [facility]2022-03-28 06:05:43 Test Item Value Reference Range Interpretation Comments MAGNESIUM (BEAKER) (test code = 2.2 mg/dL 1.6-2.6 627) Inspection And Testing Supervisor ID - HIEN [facility]BC (Hemogram only)2021-06-29 05:32:19 Test Item Value Reference Range Interpretation Comments WBC (test code = 6690-2) 4.7 See_Comment [A utomated message] The system [employer] generated this result transmitted ref erence range: 3.5 - 10 .5 K/L. The refe rence range was not u sed to interpret this result as normal/abnor mal. RBC (test code = 789-8) 2.94 See_Comment L [Au tomated message] The system [employer] generated this result transmitted ref erence range: 3.93 - 5 .22 M/L. The refe rence range was not u sed to interpret this result as normal/abnor mal. MCHC (test code = 786-4) 31.8 See_Comment L [A utomated message] The system [employer] generated this result transmitted ref erence range: [...] L [Aut omated message] 777-3) The system IAMINTOIT generated this result transmitted ref erence range: 150 - 45 0 K/CU MM. The referen ce range was not u sed to interpret this result as normal/abnor mal. MPV (test code = 12.2 fL 9.4-12.3 37792-7) nRBC (test code = 413) 0 See_Comment [Aut omated message] The system IAMINTOIT generated this result transmitted ref erence range: 0 - 0 /1 00 WBC. The refere nce range was not u sed to interpret this result as normal/abnor mal. Lab Interpretation (test Abnormal code = 12907-0) [facility]2021-06-29 05:32:19 Test Item Value Reference Range Interpretation Comments WBC (test code = 6690-2) 4.7 See_Comment [A utomated message] The system IAMINTOIT generated this result transmitted ref erence range: 3.5 - 10 .5 K/L. The refe rence range was not u sed to interpret this result as normal/abnor mal. RBC (test code = 789-8) 2.94 See_Comment L [Au tomated message] The system I[employer]INTO[employer] generated this result transmitted ref erence range: 3.93 - 5 .22 M/L. The refe rence range was not u sed to interpret this result as normal/abnor mal. MCHC (test code = 786-4) 31.8 See_Comment L [A utomated message] The system I[employer]INTO[employer] generated this result transmitted ref erence range: [...] L [Aut omated message] 777-3) The system I[employer]INTO[employer] generated this result transmitted ref erence range: 150 - 45 0 K/CU MM. The referen ce range was not u sed to interpret this result as normal/abnor mal. MPV (test code = 12.2 fL 9.4-12.3 06753-2) nRBC (test code = 413) 0 See_Comment [Aut omated message] The system I[employer]IN[employer] generated this result transmitted ref erence range: 0 - 0 /1 00 WBC. The refere nce range was not u sed to interpret this result as normal/abnor mal. Lab Interpretation (test Abnormal code = 22173-4) [facility]2021-06-29 05:32:19 Test Item Value Reference Range Interpretation Comments WBC (test code = 6690-2) 4.7 See_Comment [A utomated message] The system IAMINTO[employer] generated this result transmitted ref erence range: 3.5 - 10 .5 K/L. The refe rence range was not u sed to interpret this result as normal/abnor mal. RBC (test code = 789-8) 2.94 See_Comment L [Au tomated message] The system I[employer]INTO[employer] generated this result transmitted ref erence range: 3.93 - 5 .22 M/L. The refe rence range was not u sed to interpret this result as normal/abnor mal. MCHC (test code = 786-4) 31.8 See_Comment L [A utomated message] The system I[employer]INTO[employer] generated this result transmitted ref erence range: [...] L [Aut omated message] 777-3) The system I[employer]INTO[employer] generated this result transmitted ref erence range: 150 - 45 0 K/CU MM. The referen ce range was not u sed to interpret this result as normal/abnor mal. MPV (test code = 12.2 fL 9.4-12.3 11693-5) nRBC (test code = 413) 0 See_Comment [Aut omated message] The system IAMINTO[employer] generated this result transmitted ref erence range: 0 - 0 /1 00 WBC. The refere nce range was not u sed to interpret this result as normal/abnor mal. Lab Interpretation (test Abnormal code = 81998-7) [facility] (HEMOGRAM ONLY)2021-06-29 05:32:19 Test Item Value Reference [...] WBC 0-0 (test code = 413) POC-Glucose [id number] 19:54:37 Test Item Value Reference Range Interpretation Comments POC-Glucose Meter (test 188 mg/dL 70-110 H : TE STED AT [facility] code = 1538) [address] [facility] [place], 770 30: Inspection And Testing Supervisor/Techni kelle ID = [id number] for RAMON SPRING Lab Interpretation (test Abnormal code = 39213-4) [facility] [id number] 19:54:37 Test Item Value Reference Range Interpretation Comments POC-GLUCOSE METER 188 mg/dL 70-110 H : TESTED A T [facility] 6720 (BEAKER) (test code = [facility], 1538) [address]: Inspection And Testing Supervisor/Techni kelle ID = [id number] for RAMON FLORES POCT-GLUCOSE [id number] 17:33:41 Test Item Value Reference Range Interpretation Comments POC-GLUCOSE METER 166 mg/dL 70-110 H : TESTED A T [facility] 6720 (BEAKER) (test code = [facility], 1538) [address]: Inspection And Testing Supervisor/Techni kelle ID = [id number] for Kalya Emanuel CBC with platelet count + automated [id number] 15:34:06 Test Item Value Reference Range Interpretation Comments WBC (test code = 6690-2) 4.6 See_Comment [A utomated message] The system IAMINTOIT generated this result transmitted ref erence range: 3.5 - 10 .5 K/L. The refe rence range was not u sed to interpret this result as normal/abnor mal. RBC (test code = 789-8) 2.86 See_Comment L [Au tomated message] The system IAMINTOIT generated this result transmitted ref erence range: 3.93 - 5 .22 M/L. The refe rence range was not u sed to interpret this result as normal/abnor mal. MCHC (test code = 786-4) 32.1 See_Comment L [A utomated message] The system I[employer]INTOIT generated this result transmitted ref erence range: [...] L [Aut omated message] 777-3) The system I[employer]INTO[employer] generated this result transmitted ref erence range: 150 - 45 0 K/CU MM. The referen ce range was not u sed to interpret this result as normal/abnor mal. MPV (test code = 11.0 fL 9.4-12.3 97665-4) nRBC (test code = 413) 0 See_Comment [Aut omated message] The system IAMINTOIT generated this result transmitted ref erence range: [...] See_Comment [Aut omated message] 670) The system IAMINTOIT generated this result transmitted ref erence range: 1.56 - 6 .13 K/L. The refe rence range was not u sed to interpret this result as normal/abnor mal. # Lymphs (test code = 0.73 See_Comment L [Auto mated message] 414) The system IAMINTOIT generated this result transmitted ref erence range: 1.18 - 3 .74 K/L. The refe rence range was not u sed to interpret this result as normal/abnor mal. # Monos (test code = 0.62 See_Comment H [Autom ated message] 415) The system IAMINTOIT generated this result transmitted ref erence range: 0.24 - 0 .36 K/L. The refe rence range was not u sed to interpret this result as normal/abnor mal. # Eos (test code = 416) 0.24 See_Comment [Au tomated message] The system IAMINTOIT generated this result transmitted ref erence range: 0.04 - 0 .36 K/L. The refe rence range was not u sed to interpret this result as normal/abnor mal. # Baso (test code = 417) 0.04 See_Comment [A utomated message] The system IAMINTOIT generated this result transmitted ref erence range: 0.01 - 0 .08 K/L. The refe rence range was not u sed to interpret this result as normal/abnor mal. Immature 0 % 0-1 Granulocytes-Relative (test code = 2801) Lab Interpretation (test Abnormal code = 73192-7) [facility] with platelet count + automated [id number] 15:34:06 Test Item Value Reference Range Interpretation Comments WBC (test code = 6690-2) 4.6 See_Comment [A utomated message] The system IAMINTOIT generated this result transmitted ref erence range: 3.5 - 10 .5 K/L. The refe rence range was not u sed to interpret this result as normal/abnor mal. RBC (test code = 789-8) 2.86 See_Comment L [Au tomated message] The system IAMINTOIT generated this result transmitted ref erence range: 3.93 - 5 .22 M/L. The refe rence range was not u sed to interpret this result as normal/abnor mal. MCHC (test code = 786-4) 32.1 See_Comment L [A utomated message] The system IAMINTOIT generated this result transmitted ref erence range: [...] = 57 See_Comment L [Aut omated message] 637-3) The system IAMINTOIT generated this result transmitted ref erence range: 150 - 45 0 K/CU MM. The referen ce range was not u sed to interpret this result as normal/abnor mal. MPV (test code = 11.0 fL 9.4-12.3 11970-3) nRBC (test code = 413) 0 See_Comment [Aut omated message] The system IAMINTOIT generated this result transmitted ref erence range: [...] See_Comment [Aut omated message] 670) The system IAMINTOIT generated this result transmitted ref erence range: 1.56 - 6 .13 K/L. The refe rence range was not u sed to interpret this result as normal/abnor mal. # Lymphs (test code = 0.73 See_Comment L [Auto mated message] 414) The system IAMINTOIT generated this result transmitted ref erence range: 1.18 - 3 .74 K/L. The refe rence range was not u sed to interpret this result as normal/abnor mal. # Monos (test code = 0.62 See_Comment H [Autom ated message] 415) The system IAMINTOIT generated this result transmitted ref erence range: 0.24 - 0 .36 K/L. The refe rence range was not u sed to interpret this result as normal/abnor mal. # Eos (test code = 416) 0.24 See_Comment [Au tomated message] The system IAMINTOIT generated this result transmitted ref erence range: 0.04 - 0 .36 K/L. The refe rence range was not u sed to interpret this result as normal/abnor mal. # Baso (test code = 417) 0.04 See_Comment [A utomated message] The system IAMINTOIT generated this result transmitted ref erence range: 0.01 - 0 .08 K/L. The refe rence range was not u sed to interpret this result as normal/abnor mal. Immature 0 % 0-1 Granulocytes-Relative (test code = 2801) Lab Interpretation (test Abnormal code = 23670-8) [facility] with platelet count + automated [id number] 15:34:06 Test Item Value Reference Range Interpretation Comments WBC (test code = 6690-2) 4.6 See_Comment [A utomated message] The system IAMINTOIT generated this result transmitted ref erence range: 3.5 - 10 .5 K/L. The refe rence range was not u sed to interpret this result as normal/abnor mal. RBC (test code = 789-8) 2.86 See_Comment L [Au tomated message] The system IAMINTOIT generated this result transmitted ref erence range: 3.93 - 5 .22 M/L. The refe rence range was not u sed to interpret this result as normal/abnor mal. MCHC (test code = 786-4) 32.1 See_Comment L [A utomated message] The system IAMINTOIT generated this result transmitted ref erence range: [...] L [Aut omated message] 777-3) The system IAMINTOIT generated this result transmitted ref erence range: 150 - 45 0 K/CU MM. The referen ce range was not u sed to interpret this result as normal/abnor mal. MPV (test code = 11.0 fL 9.4-12.3 89598-4) nRBC (test code = 413) 0 See_Comment [Aut omated message] The system IAMINTOIT generated this result transmitted ref erence range: [...] See_Comment [Aut omated message] 670) The system IAMINTOIT generated this result transmitted ref erence range: 1.56 - 6 .13 K/L. The refe rence range was not u sed to interpret this result as normal/abnor mal. # Lymphs (test code = 0.73 See_Comment L [Auto mated message] 414) The system IAMINTOIT generated this result transmitted ref erence range: 1.18 - 3 .74 K/L. The refe rence range was not u sed to interpret this result as normal/abnor mal. # Monos (test code = 0.62 See_Comment H [Autom ated message] 415) The system IAMINTOIT generated this result transmitted ref erence range: 0.24 - 0 .36 K/L. The refe rence range was not u sed to interpret this result as normal/abnor mal. # Eos (test code = 416) 0.24 See_Comment [Au tomated message] The system IAMINTOIT generated this result transmitted ref erence range: 0.04 - 0 .36 K/L. The refe rence range was not u sed to interpret this result as normal/abnor mal. # Baso (test code = 417) 0.04 See_Comment [A utomated message] The system IAMINTOIT generated this result transmitted ref erence range: 0.01 - 0 .08 K/L. The refe rence range was not u sed to interpret this result as normal/abnor mal. Immature 0 % 0-1 Granulocytes-Relative (test code = 2801) Lab Interpretation (test Abnormal code = 99429-9) [facility] with platelet count + automated [id number] 15:34:06 Test Item Value Reference Range Interpretation Comments WBC (test code = 6690-2) 4.6 See_Comment [A utomated message] The system IAMINTOIT generated this result transmitted ref erence range: 3.5 - 10 .5 K/L. The refe rence range was not u sed to interpret this result as normal/abnor mal. RBC (test code = 789-8) 2.86 See_Comment L [Au tomated message] The system IAMINTOIT generated this result transmitted ref erence range: 3.93 - 5 .22 M/L. The refe rence range was not u sed to interpret this result as normal/abnor mal. MCHC (test code = 786-4) 32.1 See_Comment L [A utomated message] The system IAMINTOIT generated this result transmitted ref erence range: [...] L [Aut omated message] 777-3) The system IAMINTOIT generated this result transmitted ref erence range: 150 - 45 0 K/CU MM. The referen ce range was not u sed to interpret this result as normal/abnor mal. MPV (test code = 11.0 fL 9.4-12.3 13571-4) nRBC (test code = 413) 0 See_Comment [Aut omated message] The system IAMINTOIT generated this result transmitted ref erence range: [...] See_Comment [Aut omated message] 670) The system IAMINTOIT generated this result transmitted ref erence range: 1.56 - 6 .13 K/L. The refe rence range was not u sed to interpret this result as normal/abnor mal. # Lymphs (test code = 0.73 See_Comment L [Auto mated message] 414) The system IAMINTOIT generated this result transmitted ref erence range: 1.18 - 3 .74 K/L. The refe rence range was not u sed to interpret this result as normal/abnor mal. # Monos (test code = 0.62 See_Comment H [Autom ated message] 415) The system IAMINTOIT generated this result transmitted ref erence range: 0.24 - 0 .36 K/L. The refe rence range was not u sed to interpret this result as normal/abnor mal. # Eos (test code = 416) 0.24 See_Comment [Au tomated message] The system IAMINTOIT generated this result transmitted ref erence range: 0.04 - 0 .36 K/L. The refe rence range was not u sed to interpret this result as normal/abnor mal. # Baso (test code = 417) 0.04 See_Comment [A utomated message] The system IAMINTOIT generated this result transmitted ref erence range: 0.01 - 0 .08 K/L. The refe rence range was not u sed to interpret this result as normal/abnor mal. Immature 0 % 0-1 Granulocytes-Relative (test code = 2801) Lab Interpretation (test Abnormal code = 38164-5) [facility] with platelet count + automated [id number] 15:34:06 Test Item Value Reference Range Interpretation Comments WBC (test code = 6690-2) 4.6 See_Comment [A utomated message] The system IAMINTOIT generated this result transmitted ref erence range: 3.5 - 10 .5 K/L. The refe rence range was not u sed to interpret this result as normal/abnor mal. RBC (test code = 789-8) 2.86 See_Comment L [Au tomated message] The system IAMINTOIT generated this result transmitted ref erence range: 3.93 - 5 .22 M/L. The refe rence range was not u sed to interpret this result as normal/abnor mal. MCHC (test code = 786-4) 32.1 See_Comment L [A utomated message] The system IAMINTOIT generated this result transmitted ref erence range: [...] L [Aut omated message] 777-3) The system IAMINTOIT generated this result transmitted ref erence range: 150 - 45 0 K/CU MM. The referen ce range was not u sed to interpret this result as normal/abnor mal. MPV (test code = 11.0 fL 9.4-12.3 51768-0) nRBC (test code = 413) 0 See_Comment [Aut omated message] The system IAMINTOIT generated this result transmitted ref erence range: [...] See_Comment [Aut omated message] 670) The system IAMINTOIT generated this result transmitted ref erence range: 1.56 - 6 .13 K/L. The refe rence range was not u sed to interpret this result as normal/abnor mal. # Lymphs (test code = 0.73 See_Comment L [Auto mated message] 414) The system IAMINTOIT generated this result transmitted ref erence range: 1.18 - 3 .74 K/L. The refe rence range was not u sed to interpret this result as normal/abnor mal. # Monos (test code = 0.62 See_Comment H [Autom ated message] 415) The system IAMINTOIT generated this result transmitted ref erence range: 0.24 - 0 .36 K/L. The refe rence range was not u sed to interpret this result as normal/abnor mal. # Eos (test code = 416) 0.24 See_Comment [Au tomated message] The system IAMINTOIT generated this result transmitted ref erence range: 0.04 - 0 .36 K/L. The refe rence range was not u sed to interpret this result as normal/abnor mal. # Baso (test code = 417) 0.04 See_Comment [A utomated message] The system IAMINTOIT generated this result transmitted ref erence range: 0.01 - 0 .08 K/L. The refe rence range was not u sed to interpret this result as normal/abnor mal. Immature 0 % 0-1 Granulocytes-Relative (test code = 2801) Lab Interpretation (test Abnormal code = 62738-6) [facility] with platelet count + automated [id number] 15:34:06 Test Item Value Reference Range Interpretation Comments WBC (test code = 6690-2) 4.6 See_Comment [A utomated message] The system IAMINTOIT generated this result transmitted ref erence range: 3.5 - 10 .5 K/L. The refe rence range was not u sed to interpret this result as normal/abnor mal. RBC (test code = 789-8) 2.86 See_Comment L [Au tomated message] The system IAMINTOIT generated this result transmitted ref erence range: 3.93 - 5 .22 M/L. The refe rence range was not u sed to interpret this result as normal/abnor mal. MCHC (test code = 786-4) 32.1 See_Comment L [A utomated message] The system IAMINTOIT generated this result transmitted ref erence range: [...] L [Aut omated message] 777-3) The system IAMINTOIT generated this result transmitted ref erence range: 150 - 45 0 K/CU MM. The referen ce range was not u sed to interpret this result as normal/abnor mal. MPV (test code = 11.0 fL 9.4-12.3 71590-4) nRBC (test code = 413) 0 See_Comment [Aut omated message] The system IAMINTOIT generated this result transmitted ref erence range: [...] See_Comment [Aut omated message] 670) The system IAMINTOIT generated this result transmitted ref erence range: 1.56 - 6 .13 K/L. The refe rence range was not u sed to interpret this result as normal/abnor mal. # Lymphs (test code = 0.73 See_Comment L [Auto mated message] 414) The system IAMINTOIT generated this result transmitted ref erence range: 1.18 - 3 .74 K/L. The refe rence range was not u sed to interpret this result as normal/abnor mal. # Monos (test code = 0.62 See_Comment H [Autom ated message] 415) The system IAMINTOIT generated this result transmitted ref erence range: 0.24 - 0 .36 K/L. The refe rence range was not u sed to interpret this result as normal/abnor mal. # Eos (test code = 416) 0.24 See_Comment [Au tomated message] The system IAMINTOIT generated this result transmitted ref erence range: 0.04 - 0 .36 K/L. The refe rence range was not u sed to interpret this result as normal/abnor mal. # Baso (test code = 417) 0.04 See_Comment [A utomated message] The system IAMINTOIT generated this result transmitted ref erence range: 0.01 - 0 .08 K/L. The refe rence range was not u sed to interpret this result as normal/abnor mal. Immature 0 % 0-1 Granulocytes-Relative (test code = 2801) Lab Interpretation (test Abnormal code = 80737-6) [facility] with platelet count + automated [id number] 15:34:06 Test Item Value Reference Range Interpretation Comments WBC (test code = 6690-2) 4.6 See_Comment [A utomated message] The system IAMINTOIT generated this result transmitted ref erence range: 3.5 - 10 .5 K/L. The refe rence range was not u sed to interpret this result as normal/abnor mal. RBC (test code = 789-8) 2.86 See_Comment L [Au tomated message] The system IAMINTOIT generated this result transmitted ref erence range: 3.93 - 5 .22 M/L. The refe rence range was not u sed to interpret this result as normal/abnor mal. MCHC (test code = 786-4) 32.1 See_Comment L [A utomated message] The system IAMINTOIT generated this result transmitted ref erence range: [...] = 57 See_Comment L [Aut omated message] 107-3) The system IAMINTOIT generated this result transmitted ref erence range: 150 - 45 0 K/CU MM. The referen ce range was not u sed to interpret this result as normal/abnor mal. MPV (test code = 11.0 fL 9.4-12.3 14531-2) nRBC (test code = 413) 0 See_Comment [Aut omated message] The system IAMINTOIT generated this result transmitted ref erence range: [...] See_Comment [Aut omated message] 670) The system IAMINTOIT generated this result transmitted ref erence range: 1.56 - 6 .13 K/L. The refe rence range was not u sed to interpret this result as normal/abnor mal. # Lymphs (test code = 0.73 See_Comment L [Auto mated message] 414) The system IAMINTOIT generated this result transmitted ref erence range: 1.18 - 3 .74 K/L. The refe rence range was not u sed to interpret this result as normal/abnor mal. # Monos (test code = 0.62 See_Comment H [Autom ated message] 415) The system IAMINTOIT generated this result transmitted ref erence range: 0.24 - 0 .36 K/L. The refe rence range was not u sed to interpret this result as normal/abnor mal. # Eos (test code = 416) 0.24 See_Comment [Au tomated message] The system IAMINTOIT generated this result transmitted ref erence range: 0.04 - 0 .36 K/L. The refe rence range was not u sed to interpret this result as normal/abnor mal. # Baso (test code = 417) 0.04 See_Comment [A utomated message] The system IAMINTOIT generated this result transmitted ref erence range: 0.01 - 0 .08 K/L. The refe rence range was not u sed to interpret this result as normal/abnor mal. Immature 0 % 0-1 Granulocytes-Relative (test code = 2801) Lab Interpretation (test Abnormal code = 48332-1) [facility] with platelet count + automated [id number] 15:34:06 Test Item Value Reference Range Interpretation Comments WBC (test code = 6690-2) 4.6 See_Comment [A utomated message] The system IAMINTOIT generated this result transmitted ref erence range: 3.5 - 10 .5 K/L. The refe rence range was not u sed to interpret this result as normal/abnor mal. RBC (test code = 789-8) 2.86 See_Comment L [Au tomated message] The system IAMINTOIT generated this result transmitted ref erence range: 3.93 - 5 .22 M/L. The refe rence range was not u sed to interpret this result as normal/abnor mal. MCHC (test code = 786-4) 32.1 See_Comment L [A utomated message] The system IAMINTOIT generated this result transmitted ref erence range: [...] L [Aut omated message] 777-3) The system IAMINTOIT generated this result transmitted ref erence range: 150 - 45 0 K/CU MM. The referen ce range was not u sed to interpret this result as normal/abnor mal. MPV (test code = 11.0 fL 9.4-12.3 64902-4) nRBC (test code = 413) 0 See_Comment [Aut omated message] The system IAMINTOIT generated this result transmitted ref erence range: [...] See_Comment [Aut omated message] 670) The system IAMINTOIT generated this result transmitted ref erence range: 1.56 - 6 .13 K/L. The refe rence range was not u sed to interpret this result as normal/abnor mal. # Lymphs (test code = 0.73 See_Comment L [Auto mated message] 414) The system IAMINTOIT generated this result transmitted ref erence range: 1.18 - 3 .74 K/L. The refe rence range was not u sed to interpret this result as normal/abnor mal. # Monos (test code = 0.62 See_Comment H [Autom ated message] 415) The system IAMINTOIT generated this result transmitted ref erence range: 0.24 - 0 .36 K/L. The refe rence range was not u sed to interpret this result as normal/abnor mal. # Eos (test code = 416) 0.24 See_Comment [Au tomated message] The system IAMINTOIT generated this result transmitted ref erence range: 0.04 - 0 .36 K/L. The refe rence range was not u sed to interpret this result as normal/abnor mal. # Baso (test code = 417) 0.04 See_Comment [A utomated message] The system IAMINTOIT generated this result transmitted ref erence range: 0.01 - 0 .08 K/L. The refe rence range was not u sed to interpret this result as normal/abnor mal. Immature 0 % 0-1 Granulocytes-Relative (test code = 2801) Lab Interpretation (test Abnormal code = 79234-0) [facility] with platelet count + automated [id number] 15:34:06 Test Item Value Reference Range Interpretation Comments WBC (test code = 6690-2) 4.6 See_Comment [A utomated message] The system IAMINTOIT generated this result transmitted ref erence range: 3.5 - 10 .5 K/L. The refe rence range was not u sed to interpret this result as normal/abnor mal. RBC (test code = 789-8) 2.86 See_Comment L [Au tomated message] The system IAMINTOIT generated this result transmitted ref erence range: 3.93 - 5 .22 M/L. The refe rence range was not u sed to interpret this result as normal/abnor mal. MCHC (test code = 786-4) 32.1 See_Comment L [A utomated message] The system IAMINTOIT generated this result transmitted ref erence range: [...] L [Aut omated message] 777-3) The system IAMINTOIT generated this result transmitted ref erence range: 150 - 45 0 K/CU MM. The referen ce range was not u sed to interpret this result as normal/abnor mal. MPV (test code = 11.0 fL 9.4-12.3 18015-0) nRBC (test code = 413) 0 See_Comment [Aut omated message] The system IAMINTOIT generated this result transmitted ref erence range: [...] See_Comment [Aut omated message] 670) The system IAMINTOIT generated this result transmitted ref erence range: 1.56 - 6 .13 K/L. The refe rence range was not u sed to interpret this result as normal/abnor mal. # Lymphs (test code = 0.73 See_Comment L [Auto mated message] 414) The system IAMINTOIT generated this result transmitted ref erence range: 1.18 - 3 .74 K/L. The refe rence range was not u sed to interpret this result as normal/abnor mal. # Monos (test code = 0.62 See_Comment H [Autom ated message] 415) The system IAMINTOIT generated this result transmitted ref erence range: 0.24 - 0 .36 K/L. The refe rence range was not u sed to interpret this result as normal/abnor mal. # Eos (test code = 416) 0.24 See_Comment [Au tomated message] The system IAMINTOIT generated this result transmitted ref erence range: 0.04 - 0 .36 K/L. The refe rence range was not u sed to interpret this result as normal/abnor mal. # Baso (test code = 417) 0.04 See_Comment [A utomated message] The system IAMINTOIT generated this result transmitted ref erence range: 0.01 - 0 .08 K/L. The refe rence range was not u sed to interpret this result as normal/abnor mal. Immature 0 % 0-1 Granulocytes-Relative (test code = 2801) Lab Interpretation (test Abnormal code = 29452-5) [facility] with platelet count + automated [id number] 15:34:06 Test Item Value Reference Range Interpretation Comments WBC (test code = 6690-2) 4.6 See_Comment [A utomated message] The system IAMINTOIT generated this result transmitted ref erence range: 3.5 - 10 .5 K/L. The refe rence range was not u sed to interpret this result as normal/abnor mal. RBC (test code = 789-8) 2.86 See_Comment L [Au tomated message] The system IAMINTOIT generated this result transmitted ref erence range: 3.93 - 5 .22 M/L. The refe rence range was not u sed to interpret this result as normal/abnor mal. MCHC (test code = 786-4) 32.1 See_Comment L [A utomated message] The system IAMINTOIT generated this result transmitted ref erence range: [...] L [Aut omated message] 777-3) The system IAMINTOIT generated this result transmitted ref erence range: 150 - 45 0 K/CU MM. The referen ce range was not u sed to interpret this result as normal/abnor mal. MPV (test code = 11.0 fL 9.4-12.3 12690-6) nRBC (test code = 413) 0 See_Comment [Aut omated message] The system IAMINTOIT generated this result transmitted ref erence range: [...] See_Comment [Aut omated message] 670) The system IAMINTOIT generated this result transmitted ref erence range: 1.56 - 6 .13 K/L. The refe rence range was not u sed to interpret this result as normal/abnor mal. # Lymphs (test code = 0.73 See_Comment L [Auto mated message] 414) The system IAMINTOIT generated this result transmitted ref erence range: 1.18 - 3 .74 K/L. The refe rence range was not u sed to interpret this result as normal/abnor mal. # Monos (test code = 0.62 See_Comment H [Autom ated message] 415) The system IAMINTOIT generated this result transmitted ref erence range: 0.24 - 0 .36 K/L. The refe rence range was not u sed to interpret this result as normal/abnor mal. # Eos (test code = 416) 0.24 See_Comment [Au tomated message] The system IAMINTOIT generated this result transmitted ref erence range: 0.04 - 0 .36 K/L. The refe rence range was not u sed to interpret this result as normal/abnor mal. # Baso (test code = 417) 0.04 See_Comment [A utomated message] The system IAMINTOIT generated this result transmitted ref erence range: 0.01 - 0 .08 K/L. The refe rence range was not u sed to interpret this result as normal/abnor mal. Immature 0 % 0-1 Granulocytes-Relative (test code = 2801) Lab Interpretation (test Abnormal code = 32314-0) [facility] W/PLT COUNT & AUTO [id number] 15:34:06 Test Item Value Reference Range Interpretation [...] PERCENT (BEAKER) (test code = 2801) POCT-GLUCOSE [id number] 12:42:57 Test Item Value Reference Range Interpretation Comments POC-GLUCOSE METER 216 mg/dL 70-110 H : TESTED A T [facility] 6720 (BEAKER) (test code = [place]UDY [place], 1538) 13943: Inspection And Testing Supervisor/Techni kelle ID = [id number] for Kayla Emanuel Prepare Leuko-Red [id number] 10:49:00 Test Item Value Reference Range Interpretation Comments CROSSMATCH (test code = 2264) COMPATIBLE Unit ABO (test code = O Pos 0148372) UNIT NUMBER (test code = [id number] 934-0) Status (test code = 3923738) ISSUED Blood Bank Product (test code RED BLOOD CELLS = 2263) PRODUCT CODE (test code = Z1690X97 933-2) [facility] [id number] 10:49:00 Test Item Value Reference Range Interpretation Comments CROSSMATCH (test code = 2264) COMPATIBLE Unit ABO (test code = O Pos 1019075) UNIT NUMBER (test code = [id number] 934-0) Status (test code = 0899894) ISSUED Blood Bank Product (test code RED BLOOD CELLS = 2263) PRODUCT CODE (test code = M7356T52 933-2) [facility] [id number] 10:49:00 Test Item Value Reference Range Interpretation Comments CROSSMATCH (test code = 2264) COMPATIBLE Unit ABO (test code = O Pos 8398414) UNIT NUMBER (test code = [id number] 934-0) Status (test code = 1586482) ISSUED Blood Bank Product (test code RED BLOOD CELLS = 2263) PRODUCT CODE (test code = F7253P99 933-2) [facility] [id number] 08:43:51 Test Item Value Reference Range Interpretation Comments POC-GLUCOSE METER 209 mg/dL 70-110 H : [facility] (BEAKER) (test code = [place], 1538) 25335: Inspection And Testing Supervisor/Techni kelle ID = [id number] for Kayla Emanuel RAD, CHEST, 1 VIEW, NON [id number] 07:26:00Reason for exam:->post-opShould this be performed at the bedside?->Yes [facility] : 1955 Sex: FFINAL REPORT RAD, [...] surgical changes. Additional findings: None. Signed: Bayron [place] Verified Date/Time: 06/28/2021 07:26:22 BASIC METABOLIC [id number] 04:56:45 Test Item Value Reference Range Interpretation [...] S NOT APPLICABLE FOR DIALYSIS PATIEN TS. Inspection And Testing Supervisor ID - PIAYA [id number] 04:48:49 Test Item Value Reference Range Interpretation Comments MAGNESIUM (BEAKER) 2.0 mg/dL 1.6-2.6 Specimen slightly (test code = 627) hemolyzed Inspection And Testing Supervisor ID - PIAYA [id number] 04:48:49 Test Item Value Reference Range Interpretation Comments PHOSPHORUS (BEAKER) 2.5 mg/dL 2.3-4.7 Specimen slightly (test code = 604) hemolyzed Inspection And Testing Supervisor ID - PIAYA LCBC (HEMOGRAM ONLY)2021-06-28 04:28:17 [...] WBC 0-0 (test code = 413) POCT-GLUCOSE [id number] 21:38:17 Test Item Value Reference Range Interpretation Comments POC-GLUCOSE METER 200 mg/dL 70-110 H : TESTED A T [facility] 6720 (BEAKER) (test code = [facility], 1538) 64903: Inspection And Testing Supervisor/Techni kelle ID = [id number] for MACKENZIE GONZALEZ POCT-GLUCOSE [id number] 18:02:45 Test Item Value Reference Range Interpretation Comments POC-GLUCOSE METER 217 mg/dL 70-110 H : TESTED A T [facility] 6720 (BEAKER) (test code = [facility], 1538) 30547: Inspection And Testing Supervisor/Techni kelle ID = [id number] for Nawaf Emanuela POCT-GLUCOSE [id number] 15:14:18 Test Item Value Reference Range Interpretation Comments POC-GLUCOSE METER 229 mg/dL 70-110 H : [facility] (BEAKER) (test code = YUD[place], 1538) 69593: Inspection And Testing Supervisor/Techni kelle ID = [id number] for Kayla Emanuel POCT-GLUCOSE [id number] 12:20:23 Test Item Value Reference Range Interpretation Comments POC-GLUCOSE METER 160 mg/dL 70-110 H : TESTED A T [facility] 6720 (BEAKER) (test code = [place], 1538) 14633: Inspection And Testing Supervisor/Techni kelle ID = [id number] for Kayla Emanuel SARS-CoV2/RT-PCR (Asymptomatic ONLY)2021-06-27 10:39:35 Test Item Value Reference Range Interpretation Comments SARS-COV2/RT-PCR Negative Not Detected, (test code = Negative, See 86252-5) external report for linked test SARS-COV-2 [facility] FILIPE PERFORMING LAB (test code = 98613-5) BRANDI (test code = Negative result for [...] of the Act. Fact Sheet for Healthcare Providers:https://www.CTQuan/sites/default/f radha/product/documents/F act_Sheet_HC_Providers_L hce_CNZI-QvZ-5.pdf Fact Sheet for Healthcare Patients:https://www.BlikBook/sites/default/fi les/product/documents/Fa ct_Sheet_Patients_Lyra_S ARS-CoV-2.pdf Performing Laboratory:[facility], [place] [id number] [place], [place] [address]ARS-CoV2/RT-PCR (Asymptomatic ONLY)2021-06-27 10:39:35 Test Item Value Reference Range Interpretation Comments SARS-COV2/RT-PCR Negative Not Detected, (test code = Negative, See 17402-4) external report for linked test SARS-COV-2 [facility] FILIPE PERFORMING LAB (test code = 90583-8) BRANDI (test code = Negative result for [...] of the Act. Fact Sheet for Healthcare Providers:https://www.CTQuan/sites/default/f radha/product/documents/F act_Sheet_HC_Providers_L plt_VPZG-CfE-9.pdf Fact Sheet for Healthcare Patients:https://www.BlikBook/sites/default/fi les/product/documents/Fa ct_Sheet_Patients_Lyra_S ARS-CoV-2.pdf Performing Laboratory:[facility], [place] [address] [place], [place] [address]ARS-CoV2/RT-PCR (Asymptomatic ONLY)2021-06-27 10:39:35 Test Item Value Reference Range Interpretation Comments SARS-COV2/RT-PCR Negative Not Detected, (test code = Negative, See 30182-3) external report for linked test SARS-COV-2 [facility] FILIPE PERFORMING LAB (test code = 61621-8) BRANDI (test code = Negative result for [...] of the Act. Fact Sheet for Healthcare Providers:https://www.CTQuan/sites/default/f radha/product/documents/F act_Sheet_HC_Providers_L vdk_ZMGB-JvY-0.pdf Fact Sheet for Healthcare Patients:https://www.BlikBook/sites/default/fi les/product/documents/Fa ct_Sheet_Patients_Lyra_S ARS-CoV-2.pdf Performing Laboratory:[facility] [place] [address] [facility]2021-06-27 10:39:35 Test Item Value Reference Range Interpretation Comments SARS-COV2/RT-PCR Negative Not Detected, (test code = Negative, See 47397-8) external report for linked test SARS-COV-2 [facility] FIL[facility] PERFORMING LAB (test code = 15703-6) BRANDI (test code = Negative result for [...] of the Act. Fact Sheet for Healthcare Providers:https://www.CTQuan/sites/default/f radha/product/documents/F act_Sheet_HC_Providers_L obv_KYRX-YmT-9.pdf Fact Sheet for Healthcare Patients:https://www.BlikBook/sites/default/fi les/product/documents/Fa ct_Sheet_Patients_Lyra_S ARS-CoV-2.pdf Performing Laboratory:[facility] [place] [address] [facility]2021-06-27 10:39:35 Test Item Value Reference Range Interpretation Comments SARS-COV2/RT-PCR Negative Not Detected, (test code = Negative, See 90427-1) external report for linked test SARS-COV-2 [facility] FILIPE PERFORMING LAB (test code = 96232-1) BRANDI (test code = Negative result for [...] of the Act. Fact Sheet for Healthcare Providers:https://www.CTQuan/sites/default/f radha/product/documents/F act_Sheet_HC_Providers_L idh_BRGF-OsD-7.pdf Fact Sheet for Healthcare Patients:https://www.BlikBook/sites/default/fi les/product/documents/Fa ct_Sheet_Patients_Lyra_S ARS-CoV-2.pdf Performing Laboratory:[facility] [place] [address] [facility]2021-06-27 10:39:35 Test Item Value Reference Range Interpretation Comments SARS-COV2/RT-PCR Negative Not Detected, (test code = Negative, See 39229-6) external report for linked test SARS-COV-2 [facility] FILIPE PERFORMING LAB (test code = 87697-7) BRANDI (test code = Negative result for [...] of the Act. Fact Sheet for Healthcare Providers:https://www.CTQuan/sites/default/f radha/product/documents/F act_Sheet_HC_Providers_L wqz_VTNP-BaI-7.pdf Fact Sheet for Healthcare Patients:https://www.Sim[employer] E[employer].Biothera/sites/default/fi les/product/documents/Fa ct_Sheet_Patients_Lyra_S ARS-CoV-2.pdf Performing Laboratory:[facility] [place] [address] [facility]2021-06-27 10:39:35 Test Item Value Reference Range Interpretation Comments SARS-COV2/RT-PCR Negative Not Detected, (test code = Negative, See 28089-8) external report for linked test SARS-COV-2 [facility] FILIPE PERFORMING LAB (test code = 70677-1) BRANDI (test code = Negative result for [...] of the Act. Fact Sheet for Healthcare Providers:https://www.BetaVersity idel.Biothera/sites/default/f radha/product/documents/F act_Sheet_HC_Providers_L fhh_NAOU-PpR-0.pdf Fact Sheet for Healthcare Patients:https://www.ankur del.com/sites/default/fi les/product/documents/Fa ct_Sheet_Patients_Lyra_S ARS-CoV-2.pdf Performing Laboratory:[facility] [place] [address] [facility])2021-06-27 10:39:35 Test Item Value Reference Range Interpretation Comments SARS-COV2/RT-PCR (test Negative Not Detected, Negative, code = 1779610) See external report for linked test SARS-COV-[address] [facility] FILIPE (test code = 8241284) Negative result for this test determines that [...] 564(g) of the Act.Fact Sheet for Healthcare Providers:https://www.BetaVersityidel.com/sites/default/files/product/documents/Fact_Shee a_WA_Mxmovqdgk_Bdem_KEQD-YqT-0.pdfFact Sheet for Healthcare Patients:https://www.ShedWorx.com/sites/default/files/product/ documents/Drng_Ypkxl_Xjldnbbi_Whrc_AKVN-OtW-7.pdfPerforming Laboratory:[place] [address], [place] [address]GCWW-EEUHUSJ METER 2021-06-27 08:35:14 Test Item Value Reference Range Interpretation Comments POC-GLUCOSE METER 99 mg/dL 70-110 : TESTED [facility] 6720 (BEAKER) (test code = YUD[place], 1538) [address]: Inspection And Testing Supervisor/Techni kelle ID = [id number] for Kayla Arenas RAD, CHEST, 1 VIEW, NON [id number] 08:17:00Reason for exam:->post-opShould this be performed at the bedside?->Yes [facility] 1955 Sex: FFINAL REPORT Chest, one view HISTORY: Postoperative Comparison: 06/03 Findings: Lungs: Mild bilateral interstitial opacities, likely pulmonary venous congestion. No significant change. Heart: Unchanged moderate cardiomegaly. Pleura: No pleural effusion or pneumothorax. Bones: Unremarkable. Lines/tubes: Unchanged in position. Signed: [facility] Verified Date/Time: 06/27/2021 08:17:45 Reading Location: [facility] C0W Consult Reading Room C METABOLIC [id number] 05:32:33 Test Item Value Reference Range Interpretation [...] S NOT APPLICABLE FOR DIALYSIS PATIEN TS. Inspection And Testing Supervisor ID - HIEN SMQSQRAWQPM6903-25-44 05:23:42 Test Item Value Reference Range Interpretation Comments PHOSPHORUS (BEAKER) (test code = 2.2 mg/dL 2.3-4.7 L 604) Inspection And Testing Supervisor ID - HIEN HFFKRJYHMO5692-61-16 05:23:41 Test Item Value Reference Range Interpretation Comments MAGNESIUM (BEAKER) (test code = 1.8 mg/dL 1.6-2.6 627) Inspection And Testing Supervisor ID - HIEN ZhOXM6669-29-66 05:19:04 Test Item Value Reference Range Interpretation Comments PTT (test code = 61031-5) 35.8 See_Comment [ Automated message] The system IAMINTOIT generated this result transmitted ref erence range: 22.5 - 3 6.0 seconds. The re ference range was not u sed to interpret this result as normal/abnor mal. Lab Interpretation (test Normal code = 80376-4) [facility] Test Item Value Reference Range Interpretation Comments PTT (test code = 59605-3) 35.8 See_Comment [ Automated message] The system IAMINTOIT generated this result transmitted ref erence range: 22.5 - 3 6.0 seconds. The re ference range was not u sed to interpret this result as normal/abnor mal. Lab Interpretation (test Normal code = 75284-6) [facility] 05:19:04 Test Item Value Reference Range Interpretation Comments PTT (test code = 70708-8) 35.8 See_Comment [ Automated message] The system IAMINTOIT generated this result transmitted ref erence range: 22.5 - 3 6.0 seconds. The re ference range was not u sed to interpret this result as normal/abnor mal. Lab Interpretation (test Normal code = 18860-2) [place] 38558022-03-26 05:19:04 Test Item Value Reference Range Interpretation Comments PTT (test code = 65290-7) 35.8 See_Comment [ Automated message] The system IAMINTOIT generated this result transmitted ref erence range: 22.5 - 3 6.0 seconds. The re ference range was not u sed to interpret this result as normal/abnor mal. Lab Interpretation (test Normal code = 66277-7) [place] 38558022-03-26 05:19:04 Test Item Value Reference Range Interpretation Comments PTT (test code = 29155-3) 35.8 See_Comment [ Automated message] The system IAMINTOIT generated this result transmitted ref erence range: 22.5 - 3 6.0 seconds. The re ference range was not u sed to interpret this result as normal/abnor mal. Lab Interpretation (test Normal code = 11713-1) [place] 38558022-03-26 05:19:04 Test Item Value Reference Range Interpretation Comments PTT (test code = 92359-4) 35.8 See_Comment [ Automated message] The system IAMINTOIT generated this result transmitted ref erence range: 22.5 - 3 6.0 seconds. The re ference range was not u sed to interpret this result as normal/abnor mal. Lab Interpretation (test Normal code = 27591-7) [place] 38558022-03-26 05:19:04 Test Item Value Reference Range Interpretation Comments PTT (test code = 57307-9) 35.8 See_Comment [ Automated message] The system IAMINTOIT generated this result transmitted ref erence range: 22.5 - 3 6.0 seconds. The re ference range was not u sed to interpret this result as normal/abnor mal. Lab Interpretation (test Normal code = 27007-4) [place] 38558022-03-26 05:19:04 Test Item Value Reference Range Interpretation Comments PTT (test code = 36736-9) 35.8 See_Comment [ Automated message] The system IAMINTOIT generated this result transmitted ref erence range: 22.5 - 3 6.0 seconds. The re ference range was not u sed to interpret this result as normal/abnor mal. Lab Interpretation (test Normal code = 56228-1) [place] 38558022-03-26 05:19:04 Test Item Value Reference Range Interpretation Comments PTT (test code = 96233-6) 35.8 See_Comment [ Automated message] The system Topadmit generated this result transmitted ref erence range: 22.5 - 3 6.0 seconds. The re ference range was not u sed to interpret this result as normal/abnor mal. Lab Interpretation (test Normal code = 60477-5) [place] 38558022-03-26 05:19:04 Test Item Value Reference Range Interpretation Comments PTT (test code = 24545-8) 35.8 See_Comment [ Automated message] The system Topadmit generated this result transmitted ref erence range: 22.5 - 3 6.0 seconds. The re ference range was not u sed to interpret this result as normal/abnor mal. Lab Interpretation (test Normal code = 33655-8) [place] 82038022-03-26 05:19:04 Test Item Value Reference Range Interpretation Comments PARTIAL THROMBOPLASTIN TIME 35.8 seconds 22.5-36.0 (BEAKER) (test code = 760) Prothrombin time/[id number] 05:18:23 Test Item Value Reference Interpretation Comments Range Protime (test code = 13.9 See_Comment [Autom ated 5902-2) message] The system which generated this result transmitted reference range : 11.9 - 14.2 seconds. The reference range was not used to interpret this result as normal/abnormal . INR (test code = 1.09 See_Comment [Automated 7541-6) message] The system which generated this result [...] valves. Lab Interpretation Normal (test code = 14857-9) [facility]/[id number] 05:18:23 Test Item Value Reference Interpretation Comments [...] valves. Lab Interpretation Normal (test code = 83715-7) [facility]Proth[facility] time/[id number] 05:18:23 Test Item Value Reference Interpretation Comments [...] valves. Lab Interpretation Normal (test code = 06545-3) [facility] CenterProthrom[facility] time/[id number] 05:18:23 Test Item Value Reference Interpretation Comments [...] valves. Lab Interpretation Normal (test code = 62202-4) [facility] CenterProthrombin time/[id number] 05:18:23 Test Item Value Reference Interpretation Comments [...] valves. Lab Interpretation Normal (test code = 02433-8) [facility] CenterProthrombin time/[id number] 05:18:23 Test Item Value Reference Interpretation Comments Range Protime (test code = 13.9 See_Comment [Autom ated 5902-2) message] The system which generated this result transmitted reference range : 11.9 - 14.2 seconds. The reference range was not used to interpret this result as normal/abnormal . INR (test code = 1.09 See_Comment [Automated Doppelgames1-6) message] The system which generated this result [...] valves. Lab Interpretation Normal (test code = 19478-9) [facility] CenterProthrombin time/[id number] 05:18:23 Test Item Value Reference Interpretation Comments Range Protime (test code = 13.9 See_Comment [Autom ated 5902-2) message] The system which generated this result transmitted reference range : 11.9 - 14.2 seconds. The reference range was not used to interpret this result as normal/abnormal . INR (test code = 1.09 See_Comment [Automated Doppelgames1-6) message] The system which generated this result [...] valves. Lab Interpretation Normal (test code = 03328-7) [facility] CenterProthrombin time/[id number] 05:18:23 Test Item Value Reference Interpretation Comments [...] valves. Lab Interpretation Normal (test code = 25155-2) [facility] CenterProthrombin time/[id number] 05:18:23 Test Item Value Reference Interpretation Comments [...] valves. Lab Interpretation Normal (test code = 95744-9) [facility] CenterProthrombin time/[id number] 05:18:23 Test Item Value Reference Interpretation Comments [...] valves. Lab Interpretation Normal (test code = 54860-7) [facility] CenterPROTHROMBIN TIME/[id number] 05:18:23 Test Item Value Reference Range Interpretation Comments PROTIME (BEAKER) 13.9 seconds 11.9-14.2 (test code = 759) INR (BEAKER) (test 1.09 See_Comment [Automat ed message] code = 370) The system IAMINTOIT generated this result transmitted ref erence range: [...] WBC 0-0 (test code = 413) POCT-GLUCOSE [id number] 21:11:10 Test Item Value Reference Range Interpretation Comments POC-GLUCOSE METER 158 mg/dL 70-110 H : TESTED A T [facility] 6720 (BEAKER) (test code = YUDY [place] [facility], 1538) [address]: Inspection And Testing Supervisor/Techni kelle ID = [id number] for Re yes, Sairy POCT-GLUCOSE [id number] 19:06:56 Test Item Value Reference Range Interpretation Comments POC-GLUCOSE METER 113 mg/dL 70-110 H : TESTED A T [facility] 6720 (BEAKER) (test code GISELLA [facility], = 1538) [address]: Inspection And Testing Supervisor/Techni kelle ID = [id number] for Sutt on, Fadi Hemoglobin and jwijlendfb0778-91-08 11:43:32 Test Item Value Reference Range Interpretation [...] = 4544-3) BRANDI (test code = BRANDI) Inspection And Testing Supervisor ID - [id number] Lab Interpretation Abnormal (test code = 49017-4) [facility] CenterHem[facility] and ohctzqlrsf8503-42-46 11:43:32 Test Item Value Reference Range Interpretation [...] = 4544-3) BRANDI (test code = BRANDI) Inspection And Testing Supervisor ID - [id number] Lab Interpretation Abnormal (test code = 15711-4) [facility] CenterHem[facility] and iypdhgujfz1409-46-88 11:43:32 Test Item Value Reference Range Interpretation [...] = 4544-3) BRANDI (test code = BRANDI) Inspection And Testing Supervisor ID - [id number] Lab Interpretation Abnormal (test code = 89655-7) [facility] CenterHem[facility] and hrfwnvcceb0002-53-14 11:43:32 Test Item Value Reference Range Interpretation [...] = 4544-3) BRANDI (test code = BRANDI) Inspection And Testing Supervisor ID - [id number] Lab Interpretation Abnormal (test code = 90054-6) [facility] CenterHem[facility] and nuoyoossmu8636-00-77 11:43:32 Test Item Value Reference Range Interpretation [...] = 4544-3) BRANDI (test code = BRANDI) Inspection And Testing Supervisor ID - [id number] Lab Interpretation Abnormal (test code = 20153-4) [facility] CenterHem[facility] and jkboipkliy6359-57-95 11:43:32 Test Item Value Reference Range Interpretation [...] = 4544-3) BRANDI (test code = BRANDI) Inspection And Testing Supervisor ID - [id number] Lab Interpretation Abnormal (test code = 32348-9) [facility] CenterHem[facility] and hzbpluvvbu6006-86-63 11:43:32 Test Item Value Reference Range Interpretation [...] = 4544-3) BRANDI (test code = BRANDI) Inspection And Testing Supervisor ID - [id number] Lab Interpretation Abnormal (test code = 95695-9) [facility] CenterHemoglobin and lzlyimtdwm9564-65-42 11:43:32 Test Item Value Reference Range Interpretation Comments Hemoglobin (test code 8.5 See_Comment L [Auto mated = 786-4) message] The system which generated this result transmit levi reference range : 11.2 - 15.7 GM/ DL. The reference range was not u sed to interpret th is result as normal/abnormal . Hematocrit (test code 26.8 % 34.1-44.9 L = 4544-3) RBANDI (test code = BRANDI) Inspection And Testing Supervisor ID - [id number] Lab Interpretation Abnormal (test code = 88227-3) [facility] CenterHemoglobin and qztxfskdvw6493-82-74 11:43:32 Test Item Value Reference Range Interpretation [...] = 4544-3) BRANDI (test code = BRANDI) Inspection And Testing Supervisor ID - [id number] Lab Interpretation Abnormal (test code = 15451-8) [facility] CenterHemoglobin and hbnxxjuaia5733-38-03 11:43:32 Test Item Value Reference Range Interpretation [...] = 4544-3) BRANDI (test code = BRANDI) Inspection And Testing Supervisor ID - [id number] Lab Interpretation Abnormal (test code = 71204-3) [facility] CenterHemoglobin and bgmmlzscgs9749-53-13 11:43:32 Test Item Value Reference Range Interpretation [...] = 4544-3) BRANDI (test code = BRANDI) Inspection And Testing Supervisor ID - [id number] Lab Interpretation Abnormal (test code = 72344-3) [facility] CenterHEMOGLOBIN AND MTTGBYLPQZ2174-12-26 11:43:32 Test Item Value Reference Range Interpretation Comments HEMOGLOBIN (BEAKER) (test code = 8.5 GM/DL 11.2-15.7 L 410) HEMATOCRIT (BEAKER) (test code = 26.8 % 34.1-44.9 L 411) Inspection And Testing Supervisor ID - 6000POC-Glucose wtxep8465-59-22 11:26:36 Test Item Value Reference Range Interpretation Comments POC-Glucose Meter (test 126 mg/dL 70-110 H : TE STED AT [facility] code = 1538) 6720 [facility], 7[address]: Inspection And Testing Supervisor/Techni kelle ID = [id number] for Ector (contract)Meeta Lab Interpretation (test Abnormal code = 56754-0) [facility] CenterPOCT-GLUCOSE [id number] 11:26:36 Test Item Value Reference Range Interpretation Comments POC-GLUCOSE METER 126 mg/dL 70-110 H : TESTED A T [facility] 6720 (BEAKER) (test code = [facility], 1538) [address]: Inspection And Testing Supervisor/Techni kelle ID = [id number] for Brando wayne (contract)Marilee POCT-GLUCOSE ZHCHV5405-25-62 09:38:49 Test Item Value Reference Range Interpretation Comments POC-GLUCOSE METER 139 mg/dL 70-110 H : TESTED A T [facility] 6720 (BEAKER) (test code = [facility], 1538) [address]: Inspection And Testing Supervisor/Techni kelle ID = [id number] for IB ARRA, ELSAMAR ANG, TUNNELED CATHETER ZDSDVUZMX8818-86-96 08:44:00Reason for Central Line/PICC?->> 21 days of IV infusionReason for exam:->needs antibiotics > 10 days, ESRD, Nephrology does not approve PICC or midline. [facility] 1955 Sex: FFINAL REPORT History: [...] as (Ka,r): 6.1 mGy Signed: Krzysztof Heredia Verified Date/Time: 06/26/2021 08:44:45 Reading Location: [place] [address] Angio Body Reading Room Electronically signed by: KRZYSZTOF HEREDIA M.D.on 06/26/2021 08:44 AMRAD, CHEST, 1 VIEW, NON [id number] 08:08:00Reason for exam:->post-opShould this be performed at the bedside?->Yes [facility] 1955 Sex: FFINAL REPORT CLINICAL [...] wires and a pacemaker. Signed: Fadia Cain Verified Date/Time: 06/26/2021 08:08:37 Reading Location: [facility] Radiology Reading Room Prepare Leuko-Red [id number] 06:01:00 Test Item Value Reference Range Interpretation Comments CROSSMATCH (test code = 2264) COMPATIBLE Unit ABO (test code = O Pos 5789233) UNIT NUMBER (test code = [id number] 934-0) Status (test code = 6492825) ISSUED Blood Bank Product (test code RED BLOOD CELLS = 2263) PRODUCT CODE (test code = W0156I83 933-2) [facility] CenterPrepare [facility]uk[facility]-Red [id number] 06:01:00 Test Item Value Reference Range Interpretation Comments CROSSMATCH (test code = 2264) COMPATIBLE Unit ABO (test code = O Pos 9357105) UNIT NUMBER (test code = [id number] 934-0) Status (test code = 4106335) ISSUED Blood Bank Product (test code RED BLOOD CELLS = 2263) PRODUCT CODE (test code = U8896H14 933-2) [facility] Metabolic [id number] 05:17:06 Test Item Value Reference Range Interpretation Comments Sodium (test code = 139 meq/L 641-589 3131-2) Potassium (test code = 3.7 meq/L 3.5-5.1 2823-3) Chloride (test code = 104 meq/L 98-107 2075-0) CO2 (test code = 23 meq/L 22-29 2028-9) BUN (test code = 36 mg/dL 7-21 H 3094-0) Creatinine (test code 5.14 mg/dL 0.57-1.25 H = 2160-0) Glucose (test code = 170 mg/dL 70-105 H 2345-7) Calcium (test code = 8.2 mg/dL 8.4-10.2 L 52380-7) EGFR (test code = 8 mL/min/1.73 [place] [address]-7) NOT ACCURATE CREATININE CLEARANCE IN PREDICTING GLOMERULAR FILTRATION RATE . ESTIMATED GFR I S NOT APPLICABLE FOR DIALYSIS PATIENTS. BRANDI (test code = BRANDI) Inspection And Testing Supervisor ID - RAKAN Annetta Lab Interpretation Abnormal (test code = 75864-3) [facility] Metabolic [id number] 05:17:06 Test Item Value Reference Range Interpretation Comments Sodium (test code = 139 meq/L 309-010 1159-2) Potassium (test code = 3.7 meq/L 3.5-5.1 2823-3) Chloride (test code = 104 meq/L 98-107 2075-0) CO2 (test code = 23 meq/L 22-29 2028-9) BUN (test code = 36 mg/dL 7-21 H 3094-0) Creatinine (test code 5.14 mg/dL 0.57-1.25 H = 2160-0) Glucose (test code = 170 mg/dL 70-105 H 2345-7) Calcium (test code = 8.2 mg/dL 8.4-10.2 L 91921-8) EGFR (test code = 8 mL/min/1.73 [place] [address]-3) NOT ACCURATE CREATININE CLEARANCE IN PREDICTING GLOMERULAR FILTRATION RATE . ESTIMATED GFR I S NOT APPLICABLE FOR DIALYSIS PATIENTS. BRANDI (test code = BRANDI) Inspection And Testing Supervisor ID - RAKAN W Lab Interpretation Abnormal (test code = 02159-7) [facility]OLIC [id number] 05:17:06 Test Item Value Reference Range Interpretation [...] S NOT APPLICABLE FOR DIALYSIS PATIEN TS. Inspection And Testing Supervisor ID - RAKAN HNoqdrigjbd1583-40-78 05:00:22 Test Item Value Reference Range Interpretation Comments Phosphorus (test code = 3.7 mg/dL 2.3-4.7 2777-1) BRANDI (test code = BRANDI) Inspection And Testing Supervisor ID - RAKAN W Lab Interpretation (test Normal code = 11790-8) [facility] CenterPhosphorus2022-[facility]-25 05:00:22 Test Item Value Reference Range Interpretation Comments Phosphorus (test code = 3.7 mg/dL 2.3-4.7 2777-1) BRANDI (test code = BRANDI) Inspection And Testing Supervisor ID - RAKAN W Lab Interpretation (test Normal code = 29639-2) [facility] CenterPHOSPHORUS2022-03-25 05:00:22 Test Item Value Reference Range Interpretation Comments PHOSPHORUS (BEAKER) (test code = 3.7 mg/dL 2.3-4.7 604) Inspection And Testing Supervisor ID - RAKAN HLftogeriz3377-16-05 05:00:21 Test Item Value Reference Range Interpretation Comments Magnesium (test code = 2.2 mg/dL 1.6-2.6 90623-4) BRANDI (test code = BRANDI) Inspection And Testing Supervisor ID - RAKAN W Lab Interpretation (test Normal code = 18205-5) [facility] CenterMagnesium2022-03-25 05:00:21 Test Item Value Reference Range Interpretation Comments Magnesium (test code = 2.2 mg/dL 1.6-2.6 54602-8) BRANDI (test code = BRANDI) Inspection And Testing Supervisor ID - ARKAN W Lab Interpretation (test Normal code = 78658-8) [facility] CenterMAGNESIUM2022-03-25 05:00:21 Test Item Value Reference Range Interpretation Comments MAGNESIUM (BEAKER) (test code = 2.2 mg/dL 1.6-2.6 627) Inspection And Testing Supervisor ID - RAKAN VrDVT6010-29-66 04:21:04 Test Item Value Reference Range Interpretation Comments PTT (test code = 62401-1) 35.7 See_Comment [ Automated message] The system [employer] h generated this result transmitted ref erence range: 22.5 - 3 6.0 seconds. The re ference range was not u sed to interpret this result as normal/abnor mal. Lab Interpretation (test Normal code = 42875-1) [facility] CenteraPTT20[facility]-25 04:21:04 Test Item Value Reference Range Interpretation Comments PTT (test code = 29637-0) 35.7 See_Comment [ Automated message] The system whic h generated this result transmitted ref erence range: 22.5 - 3 6.0 seconds. The re ference range was not u sed to interpret this result as normal/abnor mal. Lab Interpretation (test Normal code = 55077-5) [facility] CenterAPTT20[facility] 04:21:04 Test Item Value Reference Range Interpretation Comments PARTIAL THROMBOPLASTIN TIME 35.7 seconds 22.5-36.0 (BEAKER) (test code = 760) Prothrombin time/[id number] 04:20:24 Test Item Value Reference Interpretation Comments [...] valves. Lab Interpretation Normal (test code = 76094-7) [facility] CenterProthrombin time/[id number] 04:20:24 Test Item Value Reference Interpretation Comments [...] valves. Lab Interpretation Normal (test code = 65100-1) [facility] CenterPROTHROMBIN TIME/[id number] 04:20:24 Test Item Value Reference Range Interpretation Comments PROTIME (BEAKER) 14.0 seconds 11.9-14.2 (test code = 759) INR (BEAKER) (test 1.10 See_Comment [Automat ed message] code = 370) The system IAMINTOIT generated this result transmitted ref erence range: [...] 4.0 See_Comment [A utomated message] The system IAMINTOIT generated this result transmitted ref erence range: 3.5 - 10 .5 K/L. The refe rence range was not u sed to interpret this result as normal/abnor mal. RBC (test code = 789-8) 2.54 See_Comment L [Au tomated message] The system IAMINTOIT generated this result transmitted ref erence range: 3.93 - 5 .22 M/L. The refe rence range was not u sed to interpret this result as normal/abnor mal. MCHC (test code = 786-4) 31.2 See_Comment L [A utomated message] The system IAMINTOIT generated this result transmitted ref erence range: [...] L [Aut omated message] 777-3) The system IAMINTO[employer] generated this result transmitted ref erence range: 150 - 45 0 K/CU MM. The referen ce range was not u sed to interpret this result as normal/abnor mal. MPV (test code = 10.7 fL 9.4-12.3 25423-9) nRBC (test code = 413) 0 See_Comment [Aut omated message] The system IAMINTOIT generated this result transmitted ref erence range: 0 - 0 /1 00 WBC. The refere nce range was not u sed to interpret this result as normal/abnor mal. Lab Interpretation (test Abnormal code = 23259-3) [facility] 04:04:58 Test Item Value Reference Range Interpretation Comments WBC (test code = 6690-2) 4.0 See_Comment [A utomated message] The system IAMINTOIT generated this result transmitted ref erence range: 3.5 - 10 .5 K/L. The refe rence range was not u sed to interpret this result as normal/abnor mal. RBC (test code = 789-8) 2.54 See_Comment L [Au tomated message] The system IAMINTOIT generated this result transmitted ref erence range: 3.93 - 5 .22 M/L. The refe rence range was not u sed to interpret this result as normal/abnor mal. MCHC (test code = 786-4) 31.2 See_Comment L [A utomated message] The system IAMINTOIT generated this result transmitted ref erence range: [...] L [Aut omated message] 777-3) The system IAMINTOIT generated this result transmitted ref erence range: 150 - 45 0 K/CU MM. The referen ce range was not u sed to interpret this result as normal/abnor mal. MPV (test code = 10.7 fL 9.4-12.3 13766-4) nRBC (test code = 413) 0 See_Comment [Aut omated message] The system IAMINTOIT generated this result transmitted ref erence range: 0 - 0 /1 00 WBC. The refere nce range was not u sed to interpret this result as normal/abnor mal. Lab Interpretation (test Abnormal code = 70031-8) [facility] (HEMOGRAM ONLY)2021-06-26 04:04:58 Test Item Value Reference [...] WBC 0-0 (test code = 413) POC-Glucose [id number] 21:57:30 Test Item Value Reference Range Interpretation Comments POC-Glucose Meter (test 204 mg/dL 70-110 H : TE STED AT [facility] code = 1538) 67[address] [facility], 770 30: Inspection And Testing Supervisor/Techni kelle ID = [id number] for Rodríguez Cancino Lab Interpretation (test Abnormal code = 17167-1) [facility] [id number] 21:57:30 Test Item Value Reference Range Interpretation Comments POC-GLUCOSE METER 204 mg/dL 70-110 H : TESTED A T [facility] 6720 (BEAKER) (test code = [facility], 1538) [address]: Inspection And Testing Supervisor/Techni kelle ID = [id number] for Ad ams, Estelaetra Type and screen, automated ([facility] Lab)2021-06-25 19:44:00 Test Item Value Reference Range Interpretation Comments ABO/RH AUTOMATED (BEAKER) (test O POSITIVE code = 2260) Ab Scrn (test code = 890-4) NEGATIVE [facility] ([facility])2021-06-25 19:44:00 Test Item Value Reference Range Interpretation Comments ABO/RH AUTOMATED (BEAKER) (test O POSITIVE code = 2260) Ab Scrn (test code = 890-4) NEGATIVE [facility] ([facility] Lab)2021-06-25 19:44:00 Test Item Value Reference Range Interpretation Comments ABO/RH AUTOMATED (BEAKER) (test O POSITIVE code = 2260) Ab Scrn (test code = 890-4) [facility]IVE [facility]2021-06-25 19:44:00 Test Item Value Reference Range Interpretation Comments ABO/RH AUTOMATED (BEAKER) (test O POSITIVE code = 2260) Ab Scrn (test code = 890-4) NEGATIVE [facility]2021-06-25 19:44:00 Test Item Value Reference Range Interpretation Comments ABO/RH AUTOMATED (BEAKER) (test O POSITIVE code = 2260) Ab Scrn (test code = 890-4) NEGATIVE [facility])2021-06-25 19:44:00 Test Item Value Reference Range Interpretation Comments ABO/RH AUTOMATED (BEAKER) (test O POSITIVE code = 2260) Ab Scrn (test code = 890-4) NEGATIVE [facility])2021-06-25 19:44:00 Test Item Value Reference Range Interpretation Comments ABO/RH AUTOMATED (BEAKER) (test O POSITIVE code = 2260) Ab Scrn (test code = 890-4) NEGATIVE [facility])2021-06-25 19:44:00 Test Item Value Reference Range Interpretation Comments ABO/RH AUTOMATED (BEAKER) (test O POSITIVE code = 2260) Ab Scrn (test code = 890-4) NEGATIVE [facility])2021-06-25 19:44:00 Test Item Value Reference Range Interpretation Comments ABO/RH AUTOMATED (BEAKER) (test O POSITIVE code = 2260) Ab Scrn (test code = 890-4) NEGATIVE [facility])2021-06-25 19:44:00 Test Item Value Reference Range Interpretation Comments ABO/RH AUTOMATED (BEAKER) (test O POSITIVE code = 2260) Ab Scrn (test code = 890-4) NEGATIVE [facility])2021-06-25 19:44:00 Test Item Value Reference Range Interpretation Comments ABO/RH AUTOMATED (BEAKER) (test O POSITIVE code = 2260) Ab Scrn (test code = 890-4) NEGATIVE [facility])2021-06-25 19:44:00 Test Item Value Reference Range Interpretation Comments ABO/RH AUTOMATED (BEAKER) (test O POSITIVE code = 2260) Ab Scrn (test code = 890-4) NEGATIVE [facility] [id number] 11:31:12 Test Item Value Reference Range Interpretation Comments POC-GLUCOSE METER 130 mg/dL 70-110 H : TESTED A T [facility] 6720 (BEAKER) (test code = [place], 1538) [address]: Inspection And Testing Supervisor/Techni kelle ID = [id number] for PH KATHI (V), IENS RAD, CHEST, 1 VIEW, NON [id number] 09:04:00Reason for exam:->post-opShould this be performed at the bedside?->Yes [facility] 1955 Sex: FFINAL REPORT Chest AP portable Comparison exam: 06/24/2021 History p rovided: Postop evaluation Heart size magnified by projection. Lungs grossly free of acute disease and vascularity normal. Signed: Wero Alvarez Verified Date/Time: 06/25/2021 09:04:07 ReadingLocation: [facility] Diagnostic Imaging Reading Room - [facility] 1.310.12 BASIC METABOLIC [id number] 03:58:40 Test Item Value Reference Range Interpretation [...] S NOT APPLICABLE FOR DIALYSIS PATIEN TS. Inspection And Testing Supervisor ID - [id number] 03:40:57 Test Item Value Reference Range Interpretation Comments PARTIAL THROMBOPLASTIN TIME 46.7 seconds 22.5-36.0 H (BEAKER) (test code = 760) PROTHROMBIN TIME/[id number] 03:39:54 Test Item Value Reference Range Interpretation Comments PROTIME (BEAKER) 13.6 seconds 11.9-14.2 (test code = 759) INR (BEAKER) (test 1.05 See_Comment [Automat ed message] code = 370) The system IAMINTOIT generated this result transmitted ref erence range: <=5.90. The reference range was not used to int erpret this result as normal/abnormal . RECOMMENDED COUMADIN/WARFARIN INR THERAPY RANGESSTANDARD DOSE: 2.0 - 3.0 Includes: PROPHYLAXIS forvenous thrombosis, systemic embolization; TREATMENT for venous thrombosis and/or pulmonary embolus.HIGH RISK: Target INR is 2.5-3.5 for patients with mechanical heart valves.[id number] 03:34:10 Test Item Value Reference Range Interpretation Comments PHOSPHORUS (BEAKER) (test code = 3.8 mg/dL 2.3-4.7 604) Inspection And Testing Supervisor ID - [id number] 03:34:09 Test Item Value Reference Range Interpretation Comments MAGNESIUM (BEAKER) (test code = 2.3 mg/dL 1.6-2.6 627) Inspection And Testing Supervisor ID - [id number] (HEMOGRAM ONLY)2021-06-25 03:11:29 Test [...] WBC 0-0 (test code = 413) POCT-GLUCOSE [id number] 22:14:10 Test Item Value Reference Range Interpretation Comments POC-GLUCOSE METER 185 mg/dL 70-110 H : TESTED A T [facility] 6720 (BEAKER) (test code = [place], 1538) [address]: Inspection And Testing Supervisor/Techni kelle ID = [id number] for En nisSheryl RAD, ABDOMEN/KUB, 1 VIEW [id number] 19:49:00Reason for exam:->concern for ileusShould this be performed at the bedside?->Yes [facility] 1955 Sex: FFINAL REPORT Abdomen dated 06/24/2021 Comment:Abdomen was examined in the supine and erect position. There is paucity of air in the small and large bowel. No mass, pathological calcification, or free air is present. Impression: Nonspecific gas pattern. Signed: Andrew Palmer MDReport Verified Date/Time: 06/24/2021 19:49:12 CT, CTA CORONARY, W/ YOEL [id number] 16:36:00 [facility] 1955 Sex: FAddendum BeginsREPORT STATUS:A Impression: Mildly nodular appearance of the liver margins. Please correlate with underlying liver function tests to exclude chronic liver disease. No abnormally enhancing lesions in the liver parenchyma.Low-density lesion in the right lobe of the thyroid gland. Recommend dedicated thyroid ultrasound for further evaluation outpatient set ting.Other findings as mentioned in the cement worker report.No additional significant nonvascular findings identified. Signed: Lise Andrade MDReport Verified Date/Time: 06/24/2021 16:36:13 ReadingLocation: [address] Radiology Reading RoomAddendum EndsFINAL REPORT CT [...] (< 1mm) were obtained. Please refer to [facility] regarding the medication administered for this examination. [...] performed. Coronary calcification was analyzed using the [employer] system software. These are the results of [...] to the RCA is identified. Regarding the [place] coronary arteries, diffuse calcification identified the proximal LCx making accurate assessment limited. 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 NON-VASCULAR: A 1.2 cm hypodensity is identified in the right thyroid lobe at image 7. An addendum will be dictated thereafter by Factorer Radiologist if dedicated thyroid ultrasound scan is [...] An addendum will be dictated by the Factorer Radiologist regarding the nonvascular findings. THE REPORT WILL ONLY BE CONSIDERED COMPLETE AFTER THE ADDENDUM HAS BEEN DICTATED. Signed: Dung [facility] Verified Date/Time: 06/23/2021 08:29:48 POCT-GLUCOSE [id number] 16:19:22 Test Item Value Reference Range Interpretation Comments POC-GLUCOSE METER 108 mg/dL 70-110 : TESTED A T [facility] 6720 (BEAKER) (test code = [place], 1538) [address]: Inspection And Testing Supervisor/Techni kelle ID = [id number] for Aditya brewer (contract)[facility] [employer] [id number] 15:29:08 Test Item Value Reference Range Interpretation Comments Case Report (test code Surgical Pathology = 104) Report Case: [id number] Authorizing Provider: Logan Russo MD Collected: 06/18/2021 11:41 AM Ordering Location: [facility] Received: 06/19/2021 03:44 PM PERIOPERATIVE SERVICES Pathologist: Tom Paige MD Specimen: Mass, MITRAL VALVE MASS- for MICROBIOLOGY then pls send to Pathology DIAGNOSIS (test code = [id number] 3220) uZzEwMzNcZnRuYmpcdWMxIH tccnRmMVxlcGljOTYwMVxhb oWfOQVdsCAoI9HbzufiEFtj MM6oIM4meBuwgCAygSYfKEY uWeKoo0pgh456qEYmu1txPI AOyhwcqHh2zGrjS94vr4Q7X xlvV47rrDWrZWA3ZJOhQKVm nESxTYVqMIZ5AKFlyXFuZ7k oRNKrRS1zoftuLEqpCWbpII LqnST8FXYqtTJmB2IrWCEqT WwtHPLnryo7XqLoMq8hoTBs eTcyMFxwYXJkXHBsYWluXGZ iViPlFC0dJQSTRyYlXP8JJH JBTCBWQUxWRSwgREVCUklER K5VCdBcGR9YCKKLMRNMUpzk cGFyIEZJQlJJTiwgQUNVVEU gOB5DYQFQMONTN0YIVELAI3 HWN3VVTVMVLcSrA6GZW9rPD QMEUQmWIj0ykVHkISQMJLGW YBctB4GFBE2OCHANNdYFUqR TQ3NAL8AMXM5KS4IGSEWUPw KGLP1XNG1SLJSJYKVPCvCXB QZFViVJP2yFM1ijGGxlDRWg S19MGoKRHHHUS56oH6dOMVC SVDCHQ9OCV9nJL1lVZGurU7 XDJGsGCjAMBnQXWJZFCX8ZG sTFRI7vWRLypg44XMU0AcZa d9W1BYV7YCNrMQXwn2feEIX mbGFuZzEwMzNcZnRuYmpcdW GcMBBzGaTdg8ffj743yFLwm 3laXCBwWbN2gQVpMQWwvMBg Z376TKUfIQqee8iuz6MwLKC fuLCpa9O4PZKQvxftkFo9bL qlO30eh1E5BaewE0ilHKEpT QCtP6XrJR9zAVWeTaf3NYY8 LEO5KLMuFLRbQ4IeAW1rZGO ziTTsZGq1d0rxlMpeXNDoTH A3t6xnLUmapfGvAI1rga4mo Yt6o9yaeiZqOBFmIHDzdJKS YZNmF4NckHjkFq5nqNt8kZc iLntnDWY5Xrq5YQ3hmf47aj r5xSrkIVAbntalKrB0HEmdY WNmcctoNZp6HVphVCJvpRZ3 SHLmbFYnV0DyQXInJT2zhsn 3QHR0HCytVHJoXkW5FWNqlD VbKMJxaBotUFwdn300NZJ3T cQoMU6tE3Vie0W6mZ0xhKSo KMRrgNUwCsKbCISrqs2zlHH uYUhxw8YxJHK3pxA4eDLkzR TcUOXkWeQ9LLpoQZ6ftm14Q SVaBJM9id2ybXZygIzlgvMx rJMxWHxxC1HgMJSpr984WNR bM1DuPTUnh5M6uiVsFbTwXA ZdmML7gnY0ULHiQE1zmjwac 7zkTFkpAMjuKWBgpiA5wuE2 VMKuoONrD2BpgM3zOPKtIJ1 wcgjla0gvOJS3EWtyKNSxHH U6XzFdAHDww7Lhzht1IpKqf 8VnvRKaYOvcY22jv236YWYk xrXhQ8imgOQfhwceuWEycur zHKnbjdZ1QTFkTWxvlxueJC RuCEbtA7tqZpSsDMJskLptJ Ojmq6TsOWNfILZuKhRciIRg JTSoGgi6BWZhzSGbGODgRwO xA7icbwhhNlXQLVPyw4axQ4 mmxNFVcZMwZ5VpYClsenTrB SrrFHtsBjYsSGIhGU02XRO7 AQNjfo42 CPT Code(s) (test code y2bktALwKSUccHQ6RoMmVCM = 3357) gx2ltl3BheQVlbEIeOCfbbK QffjKwak01gCU5oN51NP2xW LYeWkX3GYSjsiJ1Pyx4VVVt NBNfsPScI117c5pqx0lpxaZ pjBC5mOvlNZAxplyaZcO9BW msZTHrckbwTVa5XEsvAUSvq DG7LBQegXNnJ9MvYHUpKY3h awy2VBX9PVxaXJPqUbF5QHK ixUIoVGFcwUjkBGtrb350CY Q9OiNhRQTnnlLdsFgygR0wO sYiOCJ8JLQdTCdxACapMJOA G6deXPL2 CLINICAL HISTORY (test i6vcnORjSQJsfRJ6DaQbOMF code = 3356) gn8dry9ImzVLhbOEtXBqtaJ TbanAiaf08iAV6iL50ID6uZ WQvYvH8ZQUzfoM5Kwb0LKGv SAVoeKVaQ818q9nzc9upyhK hjJK2hChdOREewqqoXtY8UN lhIVAgefmjESi9CEcnJQEfc RV5KGGisUDhR1WwVKDuBH9i yge6CKJ0GEdkXSQoUxY3JHV jgVIxHVLwgWhuFKuun511OB S2GfMaMPStkqMyoZwktN7zG aDiAUVQtwKhZ6KhVQm7bYAn cGFyfQ== SPECIMEN SOURCE (test k8ulsEYvKYNmhBD2UsLfNTE code = 3377) sa8dfo6CigLSjyVDcMTbknP LthnXwrq90cFK7aK97EV1cY MMyEmK1ZTTxhaG1Voy0WGTq YKGreIGxE387w1api4zojcE qgNQ5bTmjAOSarmwrPsG3AS loSECliyvoKNb1KUlhYHPoq YZ2CIJrnSEvW5XoYHGsRO1m bfu2VDB4YGzqNBIsZaS7REN qdLQsRIJooEjmVTnvz437DQ S5CxQkKJSahaHwaWtffG7rJ nMyMCBNaXRyYWwgdmFsdmVc cGFyfQ== GROSS DESCRIPTION e7cfvKCoNBMtlKYaYlWmVIX (test code = 3366) cTVKhj6peOWYteAXpAdQyGk NcZnRuYmpcdWMxXGRlZmYwe 3nzb291cUEjy4nqJROsHlN3 sJMkGFAadNYrU034QHNqFUr kz6oml4IdNDMctGMdd5M9VE QAqjhdbZm4aKjqZ47la6W4L uddG4unMIGwQQJxK5EeIL4t IXYuVuu5DTD0XQD8LCMvGKJ tB6HkXE6hASMrjRVmQDx8u0 hlkFmcNXCvVIU1w3rwOYnyu gKpTJ6hib4asNw5f9zfcwZn SHErWWVmeSVCPSLbH4KhaUh hUr1riZm7lHryLjpyYVS8Gx z5SI0pwx21xrt7dFnsLASeb qsuLlQ8QAsqAUAchxmxDXr9 MFxtYXJnbDcyMFxtYXJncjc yMFxtYXJndDcyMFxtYXJnYj miAMimRDOfXCS1WBomt314M BT6DBdoo4qzb0qlyHThCou5 FKZvQkJgCwvaDMoev1Dmk1y qABLnlf1hMLY8tJChxWgjq7 X3xQVlQPZmgSFljcGaUHXkD aA7PIwaFQ7pmm96VXNuAOL6 rs8vvVTvoCrstrOmqZEnVPp dV9EqKVUnb188HVUmA0ReMD Nir6Z9jxEsSwMuZBAdnSW2w rG0ERVsQEi1nSVqrvX7jxTh uSKsJ8linG26MiNjkYQxK5T oeD89OqFrzVUcO7DfvE65Iq ChwFSxF2EynC74UgSrkSOjG XAacHCzQa2saWCaqTGjj8Wp wAJkUYohJ38ro558FNIlmyQ pP9awwTYbyiyziLPymehfVG vbowM1FMBbUWEvTHusMJKvX GZzMjBcbGFuZzEwMzNcaGlj qMheSIxyFfZvHXBrEIxzH7f cZjBcZnMyMCBBLiAgUmVjZW a0BRHiyF4kXh3rnDQatG6vg LGdIVybNYK6xNMzKDAwNBJv CEMcSC38E0HfoA3zx8OdANW hr15oKE4kMOIeoXFxXYmkmw FsdmUgbWFzcyIgaXMgYSAxL qQgR51hkK4gkTFmU9PpVPB6 IDAuMyBjbSBpbiBkaWFtZXR ijnK1CR4coEjrwuM0vEXixX BvYUgmaRHnMObiRRL9Sc9yb FRhIEYgvhQ5t1KzSTpqPRSo a0TaoHYdMQIoLopiHJDvkKQ bZTSvcfHliFytkZ4uFiZhZv MyNFxwbGFpblxmMVxmczIwX UvfawooKLYfYEsdM0osGgVi CTDdgYsvWAdak8TsTMUqZIB yXtCmYFDhOICcx1oqUZ01GX xwbGFpblxmMFxmczIwXGxhb uroFHLeOHbpV0hjZwEtDGUc xAzzRHcjn2RfKUEnUTYtNiJ ccGFyfQ== MICROSCOPIC h0rcvPPqTCLrsBK3RmAmGKI DESCRIPTION (test code fn1bhs3RbcXWomWHmXDggtT = 3371) LgtdRrji44qXZ1wV23EB6lX CIgRtC8WNAhxlL2Vyz1EGIe WUEspBWuC245o7gtg5kmpaE hpDF1cNfkBRHapogeBfP9AH mxMHFkqbcdEWc0APjjPIGzt QX0LZHgfGIxU5ZqGUHvBI7n jvm2KEC8SFxqFNBuXmT5LAG jsOJsLGTsjLsbXPjgl418EX G9AxNoQKFvmnYpsWocfC8tM gDiPISCHAMiy9HkFGCtDSAk cn0= SPECIAL STUDIES (test o9aadGMhZXXlaTX8XxVvSXP code = 3376) jt4eve5FxiLVleQHrZYiwbT XddwGyiw43gUC7dU00CA1mH WGnCfE1BRXdupB1Hrh5QVHq VYBppDKtV492BVPeJQRvvZj ccej2nZ86XNPyvP0ykYIpLY eqncUoTHnhfpOhzrLiZrf8F BN4lGbqPRHyrmgjYvI8VVzh DZJkkkblDUv6OPscSKTdsTR 2QDKaeDExB9IeQIZqCX7lyr g7IQH6YKneKESmGgW4FWUjg NFiEWOpdZwoLGqeo253LUZ8 XfFuYPYwvxAgdBvswL5kPmB cZnMyMlxjZjEgVGhlIGludG CsjQKusLB8dN4wWG2zDRZlv RWeS2CdTEXvycSnyQBlFWX9 kHZhcZDjXB5tJDstrFXqk0c sv1GsR4mpeUkyjUO5JX1kUS RsWASuMIzee1EknP6iKsrfN CNyH6ZjJAVDD7QMXZHgRKYW Dn3GVpRGQuPrOkTEOm6kJUu NUywgQUZCXHBhclxwYXJkXG RoEMNRy046rj6zPZVhpAZvz aXHsHWqlI4zRTvlZQbdENph eCIcJBban7acBTRhi2f2zZC sQBLyulMpa3vlDJlyeiDnGD EvfFOcvWMaCAUon30oKRehn AmqgXkqMGOyk9BqnNbjp2Ix TqSaVIycy9WxH21pfCUicRK lxJutREPazkFzAPFod33dy6 hxBLFnAfY7aKLirUP2mPHrl WAye2QkrYypKBNec2coOBSa ag2inxlipCWyk0TpuF1djre jRKivbAAnxyFoADOpw2s1sD IqIEGxSRHhKAotbYp9QSYug 130ch4xejK7gZPsGBG1PTuz YWJsZSBhcmUgZXZhbHVhdGV iHBCjtmUwVLLfneXNaS43qj 7csYV6q3YfSL0yt6CieNR0Y WNobmljYWwgdGVzdGluZyB3 SZWkyYBfXb1wfXHiJAS1VFH arTvkwaLCyW2oIUDuNQw7SY GxAqTxVgyuhdFWRZOlS0GgM GKabaEdldmwDYB8wX5gp6b1 EKhaFy8yCPBjaajwk3mnsaK ovMReg5OrIAUucaPtm6RwQM EopoCoeWCzQGQzyoYvce7ai iRaCFCxNCQhQ4KjfnqwzVaj rtT9XKTdEZPdzDWlrChfHYJ sNLf4YQtbqrYmv6GrSnVfwq LtrAJwjdRzHS5tVOGnoSHla yYeIKC7YBJsRJIDYrZmAOSy y1MwRL0hIJZjpRkaHFItpE8 rt9DqUKCph61yBQIqCFAFNF EgaGFzIGRldGVybWluZWQgd XghhJQltFHwBOMsVKWzLV2x IZGkofAtsJAcd6KgcSFzaiS ti1OqnlJaCBVtMDQ5PlGHeI CbqERdoPQqstL6f9VrKXHcx eZwuMeylUGgwKPxuKErb7Sd ih0qTGHvw4zlbNmqUE9xaCV iZSByZWdhcmRlZCBhcyBpbn Tkr4QdH3K6qE3sIWjte0CzP u9jRFBfi2NqtlSdSpLNpGoe GIwyDd9oCERzmviphKGaQ6I ydGlmaWVkIHVuZGVyIHRoZS WDgVzurMYdoXVKHMZmrkQ5e 3Q0RWuarKUdtdJlWA33KZUg VP9opGOmkDZti0WxZLm0LDF xV8jQWE70USasYIEcvMBtcN yaxUOgIYTkVQHkqwLtnr4dl EdnlIPsw51sbTL3dJP3CAIj jW0gL6NiDOwjQc2kSGVnlin rzNHiiJnjSy8puZJgxY== Gross assessment was [facility] performed at ([facility], code = 2777) Department of Pathology, [address] [place] [address], Technical component [facility] was performed at ([facility], code = 2778) Department of Pathology, [address] [place] [address], Professional component [facility] was performed at ([facility], code = 2779) Department of Pathology, [address] [place] [address], [facility] [id number] 15:29:08 Test Item Value Reference Range Interpretation Comments Case Report (test code Surgical Pathology = 104) Report Case: [id number] Authorizing Provider: Logan Russo MD Collected: 06/18/2021 11:41 AM Ordering Location: [facility] Received: 06/19/2021 03:44 PM PERIOPERATIVE SERVICES Pathologist: Tom Paige MD Specimen: Mass, MITRAL VALVE MASS- for MICROBIOLOGY then pls send to Pathology DIAGNOSIS (test code = [id number] 3220) uZzEwMzNcZnRuYmpcdWMxIH tccnRmMVxlcGljOTYwMVxhb fZjQMRtmRKqZ0DfzkruSTbu EA8uBK5nuLiemRZmeZBuDQO kCdUeu5qwy415hCLxy9gbKO BJzklwyVi4rIrnI29ro1K6U yskO30bxRJgDRD6INLbPLMa aRYvYWTdUPG6SUHkbGMmH5w qJRLaRV1jdbeqHMlpCHecRN UcnYX9QBKviDLeO3XcYYDuL BpqHHOhavl7WwQiCq3iuYOz eTcyMFxwYXJkXHBsYWluXGZ kGmBgBE9yDTVIFgShLK8IKB JBTCBWQUxWRSwgREVCUklER F0GXnTiAH6XTDYSNLPRLtoa cGFyIEZJQlJJTiwgQUNVVEU nTJ4EJQOXPYEYT5BENQJYU2 EPJ4IFQSSRUhOeC1FDZ5pOR HXWYFfMCb6ybUIlGIIRPGVK DQqeZ1FESI1CEUSSNcWXHiA DQ1SPV6DCAS4DJ0YPVVBRGb UIIJ1KUI7FQTQHOWFPHtMJE HGCHrLYC5rWE8qmWFjqMZRr J31EHsTSTPOCN67nM3cMMSV JADAQD5OOE0kAX2tWGWdsF7 NPQFvWStYGViJROKKSSI1TU mVGCA4xJKLusn50GBM7MiFa e3S2DEX9XLSoSDNja0adTBS mbGFuZzEwMzNcZnRuYmpcdW PvLJEeVxHyp4una673bBVhg 3vvOEWxCgE2aPKwGBTklOFp J713CAVfSBonv4zin7WnDPJ uhXNrc1X7IDVNvkctmBq8dU dhS43kr0O9WyryH6awYDNwL SOvY3TlFD5gXFEiAsi4TJS3 SEP6FCZsQGOvK8UwBZ7xVOW tqKCcGOt6j3uvqCtcALUcHY N5l2lkZGkxssZdZU1lsb0zc Ro7s0podiWgNVHjGPSnqQCW WQFpK3WplNipLb2bjYu2wAk cWyzqPLS7Gvf1GW0dip91vf r5bYgdAPJkogvsFjK8RNbhQ MEbkmieATg3GLzsESBklLE6 VHGaiKFnD8UqJIOfHQ8gesf 0DIO3MRxeFEGvUiR2ZXQmcF QlPVWujFrfBDzbo456TRK2K sSnKB3sD8Dui8J7mD9yvVGg UTFpgUKsGvNcILCcmn8muFN bICrym3XlPIT8zeN4jBVqvC LxDLVqSdK1RAsvFN7icv60C ILbWTW6fn3hoBIrxLetcgFt yIVuLLusA5ArQYTcy407MLK pD5OkPVNqt6F4kxEtLaEsLV GrtTQ2fcE7BNFxLN4akqmpi 6zjDMguFBxrCERashX5klQ5 NCBknSCsY4DhcN9qUACnUL4 kcznxu3sxXRM9AEfkUPRcUH H7NxPuQDRwk0Eknps7PxTrn 7MqpRBhJJhvC99lx920RVCz djPoI2xafDIkslzusYYnlel tBGdzwxC0AZGiPAahsblsRJ DxNIrrN3kmScGpJCHocDfyL Acpt3CbXHJhMWAjEqQdkGNa WWWaFxe8EOFgbXHnILUyPwF iS6otvievPnXXUTXvo5zvS0 jifYWTfEVkQ8UqIUmhabNrA SeiEUriEvEtLLIyGY77OYT9 YXYyif62 CPT Code(s) (test code h3hpoATqTVJkmAP7EiHnCVE = 3357) jd7prn5IbfUUhdAGoBAsozJ VczcPcfm99xIG0rS77VK0aK TRyTqG8CZJcpuL8Trt0IFTf JCEtuCAkK338h5ito6jfjqF gtTQ9hEjsSWOpqeatXvL2OJ jkOTQpzgphTRq5DMflAWOtv OV3HZUwqIFlH4HhSTOyME8a wow7FYO5TWngZVWmMbG7GNT jcZIcICRppDerDNruk413XN L3TqHgXFPhubSovZipyB7fX gFhHJD9QEYvPIkpWZkwCBWR M6hwMYJ9 CLINICAL HISTORY (test l8fruQLoYGQxzJH2CqViEMP code = 3356) pi5vpv5OuhWLklJEhLNlitZ CvzdGebi33xPC6yV40ZP8oI BXqTuQ9MLPeeiF3Qeb6MIGq TCGsfXTeV387m5pvp3rglgT ftPR4cLjcAOGugguqEiB7FH vqOAYvoytdGFs5TWlaCDJdq EW3YAPazMKxM7YxTQVuOZ0v gff6IWT8WClgITFzAwQ1DHL vzHRlRTMoxFdaKXwcz140UD J7OxDdBDYjvkFxyXuxmN2iB dEbRQYQsuTpG0LtEDm9gUYu cGFyfQ== SPECIMEN SOURCE (test c8bwtQGsWZCsjYH2WbMpPLS code = 3377) kc5rhu6LbxXThmKDpXRwxnU NozjAvba34zQN8lM65VR8fM RQgByS1GQKmbjH4Zqn9ARJm NIZpbEHjL194b7zim7tfbxW zyEQ0gMpeYCYcoujkEaR4RY flGWIiieryXSk7NAzuFWVlc NV3VCPohRQiA4MlUYZuUE8j gbp5HJI0LWrkFHQkHcN9ZPK czDXxUTVimNozQEypg632CH Y0CvQpHAGggoOeqMquwH8rW nMyMCBNaXRyYWwgdmFsdmVc cGFyfQ== GROSS DESCRIPTION c9piwPPoOHAgyTBwNlSjLEQ (test code = 3366) iRATnb6ffAYBjqCRnPuChMh NcZnRuYmpcdWMxXGRlZmYwe 2plj289rHXbx9rcFBPrCiC6 yPXsOIHnzQIoY781BPZuSZh gt7ujd4WkGFPzzZCkh1N5ZQ NCvvyfzQc2bZksX85zg9N6W kmlE6lzTDVnEXBjR6UfLV2y ZVViNaf1QUW8MVB0TDUcHBY eD8RiSE7bEYOneBSuWDl6u8 alcJspIDAlXRB1f0cxCYsij sEpEF6vyc6edYm7g3jwkhRn XTIePPZuoUCAOHLuF4NzpCc jJe7tlSb4tVhkBfrxEYO0We b6HH2kbm41rzh2lUlpVXPrm vnwHgO4CYkbPOQhfdcxKBu6 MFxtYXJnbDcyMFxtYXJncjc yMFxtYXJndDcyMFxtYXJnYj yeYGzhPFZgECH1MGvlj228N SI5VAgdj7kpd5cogHEvXnm7 HHNvXwPiExpaFIzil1Yct8p nDDYzym3xUZJ3gNQojCpju6 F7cAXhYNTpsURgqaBsIQZgK fH6WHruWN0ziu22BROtELX3 vs2klAGcyQxrfbTfqGRiIWh zN0VfDBMfx684LZPvR6KqOR Tcv0I8dwQjDqQoHTMsrKU8w mG4AUZlRCg2pWOthiS6buMk lTSoX7bheR39DaYlsVGrO3L lxM99HzKvcBPgC5BasS54Oq OpqPEaK4AtrG75UsYhiPRrB UUebPEaSm1psSFenTWka3Da mWVcLRooJ79zn168EQBdvxV vN8snsLMgzthvcCWpqzbsEZ ecjgF5ROKyHCEgQKwmBAOaK GZzMjBcbGFuZzEwMzNcaGlj tByxODqsWaCdOOZyIRdzM9r cZjBcZnMyMCBBLiAgUmVjZW s6IRZpqP6xIm4nyNIkpS6tc AVfUGqkSIL9jMLpTGRwHREj VQOgRJ38O5KfmZ2lb1XzTQJ pu50uSJ0kISBumTRyUCjugq FsdmUgbWFzcyIgaXMgYSAxL nQpB05kmM3slVRbU3RgIIW2 IDAuMyBjbSBpbiBkaWFtZXR accE4JL8noLwsztK7jTEywB GmJZrpbFKgCBauARI9Ve9ll FRdNCGtgtU8q8RqZUhcLBWa j2YwoVHcAGOyLygwLMRdnPB lOHNobvZwfVwxxF1dFrGpMg MyNFxwbGFpblxmMVxmczIwX EbdjhzgZVEdUCacK2emItYw SEAvfFznOUycg5DiYHBvJPH vEyQlRTXqWVBsc4zuJD47MA xwbGFpblxmMFxmczIwXGxhb vxrYIOjRQyhU6xfXpXaXJGj pZuyWPous0VyFXLeJOCyCsE ccGFyfQ== MICROSCOPIC j2qudLFhLGWmiEG2TvTqBVH DESCRIPTION (test code jk8ieo7JpoJBrjORtDLzhiT = 3371) ReazJpzc25rND0dK77AR6oR URjDmL4BMIwvwF2Wiq8YBOu QKYqhHMaA890h8dxf9xbthI xoJU2gTllJTKljfzfEqI6SD irZHDtlyjcMJc7XVagLCEvj WK9EJUouDAnF1PvEJIvKF4i bzs5KWO9ZCuoYCKuNwK5HJQ heMXrTVRteErxLPcwh272GJ N8FiFnVSCsupWumKexsQ5oJ iPyIZIUWNTkn2SsRJYoRWVc cn0= SPECIAL STUDIES (test b5cdeFSsWIYkdHN5EdQkNYG code = 3376) bb7nuq9SljFHriPXaEAxosE VhhzEkkq19vJI2eU01LK9qW GEiLiK5RAZkyfG0Jqe6PQMy FEOatPQkF887MXIwHQPbsJm hdye0kR82QOLndI6rhFHrKE jcicMbQBivynDycwVeLgo9D XR5gBjcUOJpvmusPpS0YHys FPDbwqumJXi5TAjqUNIzkYU 5XSKxeCYuY7MfFSWzHP0lwz i9WKZ9ZMkfGNWcTxX9CSKwh CCuUGRltRklLMxqc240HWW5 IbBrORIppbDcqLiztC1lFxJ cZnMyMlxjZjEgVGhlIGludG ChgZTnqNZ3nM6eQM6wAKCwj MCzD8FpEZRrlqInfTRwHDR5 bVUbuEXzFB3wMLqcuLWzg4n yq1GeQ9nmaYwmjDV0TP7jSQ IhFHElNXmwi2TedB1vPwlhI ZZhH3FePKPXN7ZPGWMnDILO Ha9FWhXUMmHbJoJASz4wRXf NUywgQUZCXHBhclxwYXJkXG UfPLCAd569ik9tUNYheFGkj gGDiEJkkF7uHLaiCDkuLEvx aVBrPOnsv3dbHJWob7r1kXJ qFXChpiDcy8ylKAkbmgNtVL GoeNHlpCLnUCQco69yMNtok KesrOemPZThp4TgvBmdh3Qs NjTqJRrik7PjH44zpPAvjNY wmFeyARVsrvJaVXAcb52eh4 wnOIZxEyC2hBPmlLT7wOSoh FCsu8QsmIyjDETnw3nsCLLo dv7nsntphBPsu7IvsL9jbmh hWUindWPlqlKdWRIeo2a6sF SwFDQaHLCwODoqxUc4YPPkb 966yi5umpC3pVWzXEW8EXgh YWJsZSBhcmUgZXZhbHVhdGV wNXXduyYqSCFgpoNVaE02ti 1epZK0l5OePD5fo7LjoAO8V WNobmljYWwgdGVzdGluZyB3 NTMvkTNtOn2nbPQvTLP0ZKE ssFcfaqXCgJ4yPATsXVn4LH CyHuUuTrbfwyFCZONiJ7RcV GRspyAtttscPVH1wX4ne9c6 LTmdEt7pPIImnjmsy6gwpjU zeNEar9IcKVJzsoQpz7NjMP LtigOrhQXcOJMvmgWgbc7cs nGtPTNtRSPuR1CwskwyfKxt fxR2BMVfSWWuxGOeoChbXCW sKIj9XQcortPid4GnNuJjog MriWCnuhYtAR1jGVUduCAva eXjPWB1QWIgGBMZZzYfRHDx c9SeMG1bRSSsmKxuYDIklL2 pz8XwGCPiq90yPCMiZMHNAF EgaGFzIGRldGVybWluZWQgd TlhhVLnjUDrBDKcKMNjUZ3b XGGmgrCztWUbj1RyhTHnizQ fs7FeanHoLJAxYLH5TnMPwS AajOCtcKLczcS1z9JwYYElv eJebWmrxEIqoVIoaJCax4Cm ag0tZGExf9lgtBmiBX4ijOK iZSByZWdhcmRlZCBhcyBpbn Mfm1IgD8V1xU3iHEkbo6QnT q9kOCNoi5XfunNxEoZXlNmc UCmiKu8bONFdrmiudIXzN6J ydGlmaWVkIHVuZGVyIHRoZS NLxGyooSMyrRTPUZIwieM6m 5K4QXoxbWFierAbZW11IWSp GG8gxNWdlDPul3WgJTf0GJF xO7eFEF87JOxpSIZiqDExqJ tsmEJcXCKtRNIszqNaln8ao YkuuADoh17gcEE5zVF1KWYy eY5vD7VvXGksLm7cZDIwhrk ixVFuaVotKh7ysXOoyV== Gross assessment was [facility] performed at ([facility], code = 2777) Department of Pathology, [address] [place] [address], Technical component [facility] was performed at ([facility], code = 2778) Department of Pathology, [address] [place] [address], Professional component [facility] was performed at ([facility], code = 2779) Department of Pathology, [address] [place] [address], [facility] [id number] 15:29:08 Test Item Value Reference Range Interpretation Comments Case Report (test code Surgical Pathology = 104) Report Case: [id number] Authorizing Provider: Logan Russo MD Collected: 06/18/2021 11:41 AM Ordering Location: [facility] Received: 06/19/2021 03:44 PM PERIOPERATIVE SERVICES Pathologist: Tom Paige MD Specimen: Mass, MITRAL VALVE MASS- for MICROBIOLOGY then pls send to Pathology DIAGNOSIS (test code = [id number] 3220) uZzEwMzNcZnRuYmpcdWMxIH tccnRmMVxlcGljOTYwMVxhb tZhBEFeeXVkE9HhawziYOav FR0uYP8usHznqAAlwJWbEGH rHpYeu6ehk636eGOfo9ohGW FRragfaXs0xBpvR46nn7U8R ecoQ08xeUNlNAZ8RDBbPSLt vOEpMSCbVUZ2XHRwiAItP8z jOGWrHI9khzntWRioFUfvES YcqSZ5BTRyuVLhU6KhHHRoN AjsKMBlrlb2UlPaQz5wyOTx eTcyMFxwYXJkXHBsYWluXGZ hJzBfAY8wRGEQNbVnTW4QGA JBTCBWQUxWRSwgREVCUklER B9BYoBtEO4UFPTPZOCTUhoh cGFyIEZJQlJJTiwgQUNVVEU oYK6VBZGNROCOQ5FZIOUAG3 AEC1XMFDYVFiDqD9PVK0vJG PVCJWqBGt7taJWkTSJQQXTA TAcoM1QXKU4MHMZAUaJYHtO WF2SVD5SWGB3XJ4CFFPSROj CLCB4NQN5DEYLBFMCJIuTRY KTDNnZNX4yMI3awSFuxTUQb W54DMtOZKABUC85lK9vVXWV PRGXFP1JEX2bYV9kSZSsjE5 MNCJvLWhOLVnDIAUTWJM1QW lQDDX8sSTCgel65XKR0SlFi r3D1RJI7GRLkTWGjb2ivMTH mbGFuZzEwMzNcZnRuYmpcdW HdMRWjQyRlt5uhf029oUXev 8wuZVVuIaU5mBUkPEWwiFDr N650DVWuDCbws8kmt9AmJIC itJKuw6Z4HWYCagsqjOq7dP sbS32sc5G7EvpwN4ykWGQwR FXkT8LvBS1wHLKkGix8XNN1 BID4ECFrHSWvZ9QyFN2lRQH wuJVgZYa4g7mlnPfcMZPuON K5y2obDQvkknFrUE6zeg9ln Uk9c1qscjGjZVVkCJAkmVLY MQJaG9RxaBydKx5hwFq1fFl qRmpdKXO1Xpz5VH9eap33nm x0sImzHDYlqonqKkP6MEzhC KGoaihtETc9IGrlVONdaCE5 SFBzzQHqU1WsJNEwOF2smcv 2JAH7GHzaWNLuKjH9PGMunE HlARDhrIscRAzao707KNP6F gQlBI6sA6Wvg2O1nL6wfWGl BOJtyUXoScLfUYZrvr7eeIF qDNapi8KvUUA9ezD6xIWopU SzSFDaFbV3CXjkUD5elo43Z JMmWSQ3fn8sdTQudQaskgBu jPUoZTgoD4YjXDIfg149ENR rS0ClPWRth5Y4pyQzWkEeXW WnuLR4xeT6BTRyEH5axoban 5fxBWvgZZmyOFThzdP5wgY2 XMEcrADoJ2PjcQ3bGOXvTO9 qxhgil7kiPRZ5ROyzUDTsAR R6CbGgHAIkn9Fmtom2ZuWds 3TfuHFpIWrgQ27qk660KUXn msAhT5oiiIZygccnsPTdzro wYMueqwI2JXKqZNisziilPA AgYQgoY9efIySdBVQqrEkbJ Rkks3IwAACgESWiPaCdtLXy UEDsJye2MPRhuHIfOENiRhM hU2wplybyWdBEJWDsj9slO4 gqlIPWtQYfZ8EyPGfxxvShV FjsGSdaDzVnLIGqLF70CST6 RXRbfe30 CPT Code(s) (test code i7myzJNyQOIamII0PfHcXBQ = 3357) gm8zda1ArsLQjlNTwYOjbeG LdzgNqfa63wSR3qH52XT4lO YMzYbS9VTWxrjJ2Asb9HYIv FXRzsDPiN637i0irv5sphhM loVZ2lYnoOUBzfwesWgF8YK reTPJuzchySUm3KRwiUKEgk MM4HBRxsCWuD0OiSGCtND1f rtc1LKU2ASefQYUiDoV3HGF xhNKuCMYirIkaLYzmg705CA M4AwVpASEthhHnwRkexS3pD dYuPQN3XFDhZHlmYPnjFQDX O9nfTPY0 CLINICAL HISTORY (test f9cszLIpDCGuuPD1WdCnBVM code = 3356) os1ifz9UqcXGcjBGnDZslwE YkcxDlws11gSW7kM67BY7vW IXbHhV7JNMxbgM1Atw4VVVh WPKguPSgA447h3txe1nnjbD hfZE6rFmuCTBufcrcNhO1VT xuKGMebnszPJz2IXryVXFrf FY7LKOtdNNsP6BlOQIoWJ5j uuh2FCY1OEozQMLsEoJ5PRK zuLEsGKXswFyyCMkqh497OA T0BwMvDSNhrjHqfXrjmL1rT tOoHOEPwwMcA5DwJYd8vQVf cGFyfQ== SPECIMEN SOURCE (test k5qpiRLcDYQnhYB0NkBiCYF code = 3377) xx1ifa0QlbRIqhGBiCSiqeL NdeyAdrr41gET0oC63ZN6iV LBsWnV6HPYgshK7Hav1DGMe XXHfbOSpX160h8epb8hehiQ xvDD6hLwlFNJkkrtcTwR1JX rpNKPxydpjOXi4HMxlDQDoj OO4WUGerWYkZ7SbNWFkHM7q itu9DOY2CHvfTVOnFuY2ONE zrYMrDKAzzUgkFOmwv450IM H2CtBlISQnbvOniOvqmP1jU nMyMCBNaXRyYWwgdmFsdmVc cGFyfQ== GROSS DESCRIPTION x1dllLEcJCSptZXqOwTkULC (test code = 3366) jEIRlf8dkUBTciOJmOzZaBj NcZnRuYmpcdWMxXGRlZmYwe 8tpq824tLCka6tqFQDjLyY3 eSPgQYVecBJfA133EDAyPEz lz6idy0QeBHHlaSAok3L8ZZ RCqsyqkIn5qDoxU22bb2R8C ttvZ3agYFReIDZtJ6IcFO4t XEWlNxe1ACW3KHK6NCNhQST dN9AoHQ0dFJTpoTEhKLe2q1 eexOmgQTWkNJE8a0esYQbzl mBuSS2yck2wgHo5w1tgpwJx PMCdIRJogULCUPVwZ7FxqZi zSe9njSu0eAkxMievSPQ9Xm m5YW8yvx55utk6hHnlWWLxz ocrRfH0GUwhAAVpkqjaRGw4 MFxtYXJnbDcyMFxtYXJncjc yMFxtYXJndDcyMFxtYXJnYj mjOZtxHGVbFDN4SHylm723R AE0MHdoc4api6vspBKfOyu3 KAMmSbKmSwbyNDtvz0Nnx4n sBZZpby2vFPP8cGZiiGyjv1 M3kOXiEZXaxMByfjUdQYZzY kM0HOcmLN0nfu97QFIbPJV1 cx2mxFXbtZwmdyBriBVjCSe nE7CcASCdj983BJItP3WjMV Jcy1P2naBjTiTjZKOhgLI5h pJ6ITDzXVe4vYEppzQ9utUd fBGbR7rlhV96EqGupBZuH6Z oaX90RoFiyVFuG3RueF56Ht LleVWoW2WzqT10YhWykOOmY YAbxBPoOk2piOEmlBYjk5Ze zGClGFveZ01il730WFMdfuZ pB4xxeCXigssefAQvuuntRI kbmrW5EDCvIUNcDDerAAEiN GZzMjBcbGFuZzEwMzNcaGlj eLxwIQfxThVnLBAtWNdoI6z cZjBcZnMyMCBBLiAgUmVjZW p5HWFcoS8lPb7zpBGgnC9gp WXzSCvsVAU5hRFoGROiOIMz RGUvIX16I5LjxS2vs8NeSHK vw03gCY6dLVDljQOcALfbwi FsdmUgbWFzcyIgaXMgYSAxL lEcG34bqJ0hhGLyK4HyDBQ5 IDAuMyBjbSBpbiBkaWFtZXR egpC5WO3mcYqeceW5fPFljT DsONhwkLVcQNfcMTG3Js8mm MUhBDGpzqN8q4EuABynQXSe w1KohIKbKQCpIfgsNSDdbVE uUCXwqeMutXlqdA5fPcEhHb MyNFxwbGFpblxmMVxmczIwX OadfyovHMIxBKvcJ4tuQdLf TKNqmKmhBSknr2TqOPCsZFF tXvPyLFLlLKDqf4ppSV45BH xwbGFpblxmMFxmczIwXGxhb xgsZMYkBAvzO7irCaVxMGMn vKdkGYrad6DiQUIfLHZhHeE ccGFyfQ== MICROSCOPIC n2splAFeIZNbvKQ9HnPwUDR DESCRIPTION (test code un3zuj6TstJIypKAaBDemdP = 3371) YzstTmnh46zCO0cZ49FS7jZ PJvZfU1TQGiruM8Jwj6HCUp CDRwzOJhY874m6wob6jisbF giLY9hBxvHAMzkzrsWnA6VK btUSKjaksmRGj2JEyiFPKqz IP2PTTveCKbW6VcQADwGQ9t zvb4QMQ7DWlrLIGjAyU9DGD xeTFwSODueBlrPXawq427MM P7OjIoPLTyqlWyiVlabB2wO nOaSIWEENFyx9NlIARbDXMu cn0= SPECIAL STUDIES (test u7iyuTVdGFOvtKL6DsLiFZE code = 3376) fv9bfl8OsjAJihSYeRYrgfQ ZnuqYkke98kAC4cU58YI6uY ZLlCkV3JHXgncM1Wuo8FXTm BFEkkMZbY368ESOnSUTlhKz giyk4iA98OWSjhA4uqZLjDF mrokOpWVlhqeRedwOtFlw3E NA2qClqUXGmhyubHdN6UTbo TQWhathcYJv2JMdaDKWcfHJ 8QEHjmBStP6IfHACeWK2naw x7ICI1QRbjHLMhAkF3PXZdb GHrRTMljOikDFreb056NDA4 OpMzHCQnjmDzxDzumX8sOaT cZnMyMlxjZjEgVGhlIGludG GcoNTfnDM5kO5sDQ1zREJnd DKkP1QsUOMtxdYwhLZwCGJ9 sBErhAUlVD8kBLzboCYnt1r wc0JcM5wsuOqsvDL1MP0cYQ SiDBHuUFdho6ZjbD3sBmgzQ CPdJ1BfSJCNW9MMTZRyXOYL Co5LYaYYChXpXgASIc8jORb NUywgQUZCXHBhclxwYXJkXG YtYHLDq298nd4tVHMkwGBgr yGFiOVzxD4xCTlxHGhbZVki lIUqVKnfu2mhKKYgk5q5jNI sPTMbttMnk5bvCPyddeNxKN PitZXmyLVaSZZle31uBXkwl YqlgTyiWQQtw5XbyIwxl7Hg ZpBzZElpd4RnM33xeCDdqKX daQkkUOJrqkZrPWRth15kr4 tuWRZmVkS4jRTorPG2kABau YNfp9CwjCswYUJss0hbOGBj au3jdycwcMQlq4VkmT5dgrp mLFbluNDjzkXjPSAry3u5sK QhYTHiAFGvHZvvyBo1WALxi 023yq3vjgV0kOSvIGJ6PYrw YWJsZSBhcmUgZXZhbHVhdGV wPXEfqdJgLUMythSLsQ35oi 3cmZF9w1GtKY2yv5EksMQ6C WNobmljYWwgdGVzdGluZyB3 XRSjpUQpMq7itZOzGKU3AOB ziBiudeIVoC3zFYQkFSw2UI IwQxThGoclhoAVUSAjC9DaV RBkzhShfwoaRRK2lO9ro0m8 PRzrYv6xKVBkqtjse0kttrH gmVPic9XmANTxmwNwc8LgUH ZdxjBbkWGeGKEozvIlbt2yz rYeAJEfCKYgF3KrsziegTgu nqA3DNIkXYIubNOnxRncTRM cBAk8MXolwyWeb5SuJeSlxz LtxYPnaoErQX1pHOOgaOOtb wSkNSJ5PJFmSKXCEhVsUUFe a5GiOG3gVDRnzKynTUDbdV3 kt5PpQFEpk07oSLFfPNTOBI EgaGFzIGRldGVybWluZWQgd MoqbMLtpBViJIAwJTQaQW2k HHJygxLwyCLmk2QkvIGpivI zb0FmyeOkDPUmMGV8JoZWbW VqmTHtaJJlxzA9z6FiSYTap hWptHkmuFKwxHIrsMWqc3Kk db3wRIHsh1bolTgvBK9kaNO iZSByZWdhcmRlZCBhcyBpbn Rii2ReV6K8iJ1fRDmeb0GxD c8wTDOxz5BmdnRePdBBcOit HXhxPh6cBANgpxquzNHlF0R ydGlmaWVkIHVuZGVyIHRoZS CNwEfdnHGthKGFAATxftT6h 8G4EEorxPFxzeMsEH46TBXm UR7hkKQmwDRlt5BiTDm3WXE rW9eXEH76RWvaWWDxzNWlrB huxMNcTIJvWCZolkBofv5hi KufrPEic56baQL7aBR1SVJg fO1bH3KdOAljBi9eVOLvbvn avYCtzFgnNs2rrIIdgP== Gross assessment was [facility] performed at ([facility], code = 2777) Department of Pathology, [address] [place] [address], Technical component [facility] was performed at ([facility], code = 2778) Department of Pathology, [address] [place] [address], Professional component [facility] was performed at ([facility], code = 2779) Department of Pathology, [address] [facility], [place] [address], [facility] [id number] 15:29:08 Test Item Value Reference Range Interpretation Comments Case Report (test code Surgical Pathology = 104) Report Case: [id number] Authorizing Provider: Logan Russo MD Collected: 06/18/2021 11:41 AM Ordering Location: [facility] Received: 06/19/2021 03:44 PM PERIOPERATIVE SERVICES Pathologist: Tom Paige MD Specimen: Mass, MITRAL VALVE MASS- for MICROBIOLOGY then pls send to Pathology DIAGNOSIS (test code = [id number] 3220) uZzEwMzNcZnRuYmpcdWMxIH tccnRmMVxlcGljOTYwMVxhb qKtJXUzkMViC1ZaeemzFAsa VA3nWS7aaZvufLOvaVKqXDQ xKmIsb7hna354dPBsm6lrLT BQjzmavXi0eGyrN28ng2W6A ccbA43uqLZpOES0BJIvFGGx qRBiMXWvYIB7NOTtdJGmK8t pXPVbTO2idjxdBKpjMBxoFH XiiMI0VMUphDHqG7OqMQWgT VkaMOTlpsn9DwZdPt2ekESs eTcyMFxwYXJkXHBsYWluXGZ fGrXuHG5wHJAGDiXnJS5NEH JBTCBWQUxWRSwgREVCUklER O8TMlNnAK4AKVVMWAHPGjwd cGFyIEZJQlJJTiwgQUNVVEU qHU8OAHQVESAFZ9WFTIOTB8 BUG8JQTJTOVcYhF7OIX9cUJ SYAQOeSLw0xzKWhMUMDCHNO EGyqY1YOPO5FHXDSVkZHWnG KM0UUG2RDLG2RF7LQPDPPMr ELNA3FLQ6CQVRGOWTLMzOCA AUSOwEKM1iHQ5xqHOemLBMb K23LJeUQJMPEX67zU9hESXC HGRIJQ9BWK9fLH2pXSTjsV3 XRFBfESrPJJkZIRAUZRC3WF bEHNK4sFZJnir35GKI2OpEt s2F4UFL1PYFiAMApk1ydMSV mbGFuZzEwMzNcZnRuYmpcdW ZfFCOfCpVag6bml471bDRaq 1cmDVVlYkY6oGLvIABddDUy E279BQEoREooe3ijx6GgXSP giFWbw6Y0GVZLycdneAx0pB xzK55uj2V8QkdeE3vxTWVeY GDbD0XdZL9iFUFbIjl0DFH5 UOU2BWGqMCRuC9YiMR9fVZU qzLSrADa3m2xgfIseJUKyHW N1m0tdRLtpkaBpIS6kzm9aq Ee5x3jxjuDyQVQqRKKiiJVR FNKbK3EbnVfcMf9wwQd8lQq fPawhADO1Sit9HU1xhx46ks s4nRssZNRcnfhzWtM5FYiyR XTfvyjuYXd6IEjmFKExqUC0 BDXueQRkX5OsXSJvCB2xjzi 4BMZ8CXliVZWjEsV1DUEmzO BiJXXiqSzbLKpqx479OZK0Q jNtCG1xQ5Gxo1U2eP3sdHCt LPSzhPSkJvHhTDAwaq5wyII uAIhbo7VbDQP9beD8nBHnuH TyQLRjOpN6AEmfTD6ibg64Q RCrEKG8ia8euOYjoUoqjwSo pSJgCBriR6GrOCUkw473PHZ bP5TbWDCmo9M9hrVwOdOjKN QiiFP7kjE2VNBiCB5ivycnk 0peWGxnCQzhQJIwoeM0szD9 XDFpjIPmI7EpaZ5qREXlQW1 iqryvb4vqUIE6HQavFXCmLX R4AyHhCKAqu2Ylekr3YwKwz 0RerCNzVTktY73if999MEQa nmBfR1cqiDYcgppemUKdblq iSOqvfgV7HEKaNHcxmgdxAH SaLCvwX0yrGaHfCDSunTeqP Dflc2FyKRGoVDKrXaTkoGRw MMKbUcu9UTHdoXFlQTBuViX wV7vjridlJrFGWNIsm1vvQ4 xrhLDLeBHuI0ZiTBhpimElB FzrUZiqIaAaZDBuSP79NKH9 ZQVsai08 CPT Code(s) (test code r6pfmSSyKOBajFJ0HeVaEBL = 3357) jd4aex2NdpXGafUPvVTezdX ZegdMnlm81yBI1eP31MM2hA WRhShE8ZBFokqC1Bkl1SAVo DVRxyVRaI322l2gpq6xcstK nrTF1fZxxIQCnvduvFlD1DK esSRLdfbwyCUi1PLifGYOaj UC1MVRxjEVjW5HqEYFaEW7y zqu1JZT3NQmsVCAjFiC8CTK okMTwJEQofBgwMClqu175ZO K5PnRuASWxqxTwaKrxqC8iK vElBLE3YQMxMKajJVpwXIXT H9mdTDN6 CLINICAL HISTORY (test i2awpDJrIOFvwLH8OuIoVQV code = 3356) np7rlv6GrbOHllJNsDThnlK ZdglWobs16fWM5bC13WK8vX LUyMtP2XQTsqmU3Upx5HTTq PEItkJHcT011d8ven6lflfJ enAL1aRnrEWEritniNjG7NR gkFADkgmzcMFe9IRvjSWEqs EO6DNTquKSyJ3BvEZRaLR8e bqb9WIX1RTjmRFStUjP0VKE wrEQhIDJkdTzgPEcnq771CS W5TdKeVDJcoaAoxFcxgR5pM uQcNSRVstOrC5PoUKh5sMZy cGFyfQ== SPECIMEN SOURCE (test h7szcNGyGOFieBA5TzFiPSV code = 3377) hd3llf4YypDQojPYeIVkavF FeuzQwbx38cIU7aB29LD9kL TAzHwW9SAJgvuI7Fng4GBAs NMYzyJWhC112f8kga3ddfsA xnQE2jFrtOETbnozdYaT6EQ guTJQoiijuOCl0FSskNTLig EW9BAWzhYFiI7GbHAOvMU4e ges7JJF1ONgdBKAuSaC3REL phIIyPWQihHyyDJxwk648HZ M6CtCiGRNvyoYqhFufmO5dJ nMyMCBNaXRyYWwgdmFsdmVc cGFyfQ== GROSS DESCRIPTION w2kfwYPcRDBnaROnHcOoPEY (test code = 3366) fHWLdc8plWZOalNMsFvIdNx NcZnRuYmpcdWMxXGRlZmYwe 4scy603oXRhj9ftSQMsIuO5 zWCfDNCztDRxZ378XHOlTHv me3dsk1NgRPOszDKvf8C0XP WVsplqjKh3oRciD59rh9U8B lnzV7pqNKUzIUZoG9JjTC2k PFRpCzu9SRR9XOQ4DEXwLWJ cM4JuUZ4kZRYnpSXnMXp3o5 thjEdwFXYtCCE6c6jiBIzvm vXdTX8cuc0vvHl9w7wrcrAx LJDnUWTokYQPCEEtZ3ChxMt pVq8xgNi6rPfwArpvONP8Re b4JI1myp68leg7dVpqOQQxg gevGyP0YUjqFSAzsttxAOz2 MFxtYXJnbDcyMFxtYXJncjc yMFxtYXJndDcyMFxtYXJnYj seHJprIKIoHAL2UMupl425E XD7BXlsb1arn0rykPXmRvo8 MPYdGpJeNqngFKrov8Jdq9l qHTDlro4mKGX1dORztZmtg4 U2vRIeFHSesXWnrnPvZGQrB aC0FWpwHK2iya99DEBpCHM0 cb8qeJJaaPbfiyIskLPoTGi mG2UrVGGjy793ALDsG2CgDK Khf0Y7dlFoFkTaDWXngEG0c xT9WWYeYMw3uMFvxoH1zjVm gSNaK5twcX55WtKmhMArL5Z iwO30VhCsdFJnN6ImuU22Jw SdxMPeK2YtvL86ZtPtzGZaM ONddLTyCu9jmEGguSPcf4Vr uJKpAWtrJ12pg434VWBbxpW oK9xkfDZmqvwtwEWrjjllGC gydnT8IHElREPdSHpeJTZyC GZzMjBcbGFuZzEwMzNcaGlj aLnlJVjfMiPmZTOcJOenL8o cZjBcZnMyMCBBLiAgUmVjZW v4UFRyxN2wUz6opYNprU2ap VKqMYmuGWM9cXNsVROqZXHz SMJcQW81E0SylS4ps5LsIII jh87tJB6uKGOtkNTiHHwcaf FsdmUgbWFzcyIgaXMgYSAxL xAoB40vbU1cdAHgE1XdLUB7 IDAuMyBjbSBpbiBkaWFtZXR mvkE5CY7vsWyztaI2gTFwgT VkHXrzdCBbGLgwUZB0Ir8ql DLuFLMvakR8n0RwVUilAWTz z0QvtIPpIQIdWkjcMRIqvHM pOWLfwmWilAaolM1mBmAoWe MyNFxwbGFpblxmMVxmczIwX FejgswqBKWcWCwcS7fbAnPj YAQxtEgcJQwbi6CqTBTtLSD aLcOpTNRjZOQfz6wcXG44OW xwbGFpblxmMFxmczIwXGxhb oqhHNSyFUvqV9zsWgUmTRKl eOxzJVsqy3RvMHAeREDbXjR ccGFyfQ== MICROSCOPIC d3edeICwAJDlmAD8OnNdQPK DESCRIPTION (test code vq0gas2HotWSudHXvANjmsL = 3371) QjdtMppi42eAB1kR70CY0yS PEbWsJ9OMOqolJ8Abn8DXEq CEZlpPEkK620b3ieh3mkzmC ugAL0uJwyVTJdnbkcEjX6MY ljYEWyomhcVJy4HNblKKNbo JW3MMFmnVKtQ6HjAUOnXL3w bqb7BWI5ZRwaSKIzNhT4EBW ydVLdBTXbmDmuORwde275JU C8MxRqHSRxftUwjUcayA0fD fYuBQJBGOHqb5FeJCQkGXIf cn0= SPECIAL STUDIES (test u0rbbMCaBPNsgIB7IeQdWUS code = 3376) ju9cot0TnjUXypVWrYStcxK WhfxWuhb55hJY3aM17KH2aT UBsFgG1KKGxkrQ3Udq3ZPLa BDEwzXTkK671APQxVBOfyJd webn3uI50RMCzwY1bhMIgNE qgtmTcWWtxuqRvzgGmCou5Y XJ7mEjjNCMddruuTaJ8LDto YYFvyoetDWq3YFqvLXLyySA 1XLBwwDRcM1GxLZTwDF1pqn f1ASG1VAbwWTIrCpE6RUBvp TKdCNZnqSsjQLeol561LIY8 HlSlHYZgsgWkfArpbS6pQjM cZnMyMlxjZjEgVGhlIGludG YxlEGktVF5bM6jCB2nYHAkd ESoX7HjASAlgzTioZDcVZL3 oLSxnRGoHE3nJOmqcODkl4u dn8MhV5porMjnoTG7NT7rNC LcAOMkFCzgy6FntZ2kDjowX KFnU6YnIZQIX6XGLAGsTKGI Wg3NJaYPVtIxTwFCLv2wPJy NUywgQUZCXHBhclxwYXJkXG YvWZWEt775xr8qEQSnzSCcp bQCuPNmwI1pVYrbKIaaJSar cSAzSDcwf4ijNESco8a2iTQ wWAQlnfJmy5csYIuahbIiDG CcqEDiaQBtTJZda14fXVbfo NzrsTjwTMZts8TtsEpvt6Et LaAnGKhuk8DwP12xmCKjbNA dtHqmZSPoyiLtEJUkb57ms3 zxYITxXaA6oPSnqXM8mTYqo NUfs1RtqUznSRRak9xtRYGf nk4tsgqmbFJlz3IwgU0lsnj rMYclbLGehpEaBQQkc2l4hR WoGKNeZGSxUGqzqBl4TFWrp 455ez3rawC1rRCmURB5ZIce YWJsZSBhcmUgZXZhbHVhdGV yOPAqacLuVOJtnnYCcS98ii 3keSM1n0DzZL4ne0ZsjOW2U WNobmljYWwgdGVzdGluZyB3 AATejYIwOt2zaWSfOEA2ZJQ unVkdcrCGmV1mKPYyUUw8XP XtAzYbHmksxbKWAABnS4NaU KNbvjEuhusnJUC5nT8vp9q1 AYkuDl1iPBYpscdwv2rxiuD iyORrn8FcLAWuwcYhn8EeVX FwygZluLLdTMAocxLgjf5uy tDtBAXjJHUdL7IzgcspuDnl hbX7YRLjDACusWJsiDzaSRP aCVp6MDjbalFpd9WeYoOdxv MkfRXcpyCdCD8sSSQclWNhb fUuJSW8RVJvVVFXEnNyZIHk z3MlHK3fJRLneXwmWDTyeJ9 od7TlJJYyb82oKMBcPNFBUD EgaGFzIGRldGVybWluZWQgd NeymMCymYQiFRSgBFYgWB2v QDQieeFwnWCqb0QutTPpxyI tw2YxdyJgPMYeJHL4VhRBiA BkoVLpyIMshwN3c5OdFQYuo zHasJcyoFXesEYrdVBzb2Io mr3tPODwr8mttVvkNW1tkJY iZSByZWdhcmRlZCBhcyBpbn Ggo8YlF8O6aQ9sTWlyp2IxE q7nHMPva1YdwxRnMyXMaVfr GZknUe8aFOWepqoglAZxD6T ydGlmaWVkIHVuZGVyIHRoZS ZLrUmtkUWvnYEAESHhrxI5z 9Y2EHhrvCBfkiXnRA06XJEf FA1hpVPamJXbm8QsLIx9RFO zI7kLKF62DOwcBVKygWXglC fjmZBaVPZlCRLtpfQctv7su WcrlVTpi80zrDF2gRG3ZCAm wN4vU0PfAEczCd9uUPSewtr muBWogUmaNa8amKOvjP== Gross assessment was [facility] performed at ([facility], code = 2777) Department of Pathology, [address] [place] [address], Technical component [facility] was performed at ([facility], code = 2778) Department of Pathology, [address] [place] [address], Professional component [facility] was performed at ([facility], code = 2779) Department of Pathology, [address] [place] [address], [facility] [id number] 15:29:08 Test Item Value Reference Range Interpretation Comments Case Report (test code Surgical Pathology = 104) Report Case: [id number] Authorizing Provider: Logan Russo MD Collected: 06/18/2021 11:41 AM Ordering Location: [facility] Received: 06/19/2021 03:44 PM PERIOPERATIVE SERVICES Pathologist: Tom Paige MD Specimen: Mass, MITRAL VALVE MASS- for MICROBIOLOGY then pls send to Pathology DIAGNOSIS (test code = [id number] 3220) uZzEwMzNcZnRuYmpcdWMxIH tccnRmMVxlcGljOTYwMVxhb vNsMWBcaKWbY2WdskeqOUmj OW9eOS7ldGxhzWIisYIgNIE xEmNmv9odz324jSRcp2ijIA AKzipgqIx8mKbbR41gk2N1S dmhP50tvOOzJBB8DKWaGKCe wILaFJCsIMD1YYSwsQHpQ3z aQKFdBN2cqlisRQvuGUlsGR RdeYB8AWMjjCElC8AxPGPdL VfzKBPzhnw1LwDbOf6zqDRu eTcyMFxwYXJkXHBsYWluXGZ vEwAgIH0fHEPARcOeCD1ADU JBTCBWQUxWRSwgREVCUklER T2NUqSsRD2CLKMEEHVPJjtb cGFyIEZJQlJJTiwgQUNVVEU mXX5FUHSTRFDZZ4HHVPQGZ9 ZMV6KPHVLUDqAbQ4PZZ1cQW YYYMTnYJv7stXBmISRGYXUC AZdpZ5YRUD6SLQJZAjNMIdM KU0OKW6JIKI6AZ2CUJWTFZj XOVQ8GYL5HILBGZAVGIdVLD DICAcTJO3rYV2lbDJafDGMu Z90LUhBCBFILS73xC5wYYOU KHCXZS0NPW4xTD7rCXIvdX7 KHJAgCZoYMOoUCIEWHBD4QP eEEDI5xHBZfvn81FOF0OxSk z5K0YOS1EJZmHHSpa7niURZ mbGFuZzEwMzNcZnRuYmpcdW BvHUOlYbWex4hfd302uELyg 0ijMXWxSjT9dBDtFKHfjCPn R941SCBhEBwew7dkw1SwHOC klDLuj5P8QPNTmjcisSo7bE cxU39dl7I7HlflO2gsSNUoS COmL4PfJF5fLJYkLbx9CNQ5 UCP9TBAoOHIqB6IuZM2rTYY rwLKiGLh8z2sryNucAAGzVE M1u0tyIGirojEvLI9xpf4km Co0p2ohxmDiGDYeYJDkgMIX DUUmM1RuwKphVq4ucVb7sFn bQbxrSFU6Koi1QU6wyw82sh i1qPwyUJOnlnwnYtL0KGioC SItkitsAUo8OHukVXBgxLV1 SRWyzONfT5FiSVMrJK0ocnn 5BRP2LUcxFGNrXbM7ABTvhK YcWYWpjCfjWRrnp883VZH6C vSlRO3eF5Faf6O4mT1koRVp PKPiwONzIqDfWYAwlg1piHE fDXfso1NdRWJ9tqC2bMPcaA XyXIUpJlX7JBzcWN8bgv20U KVkRDJ5zj9atWWjvGgendZd sXGdUUdvD7UuQWYup158BHA pX2YkPOEce4E9vhEnCmVyDL CdwKY1wqX2GEHpWG0tpivcz 3mcXGprDKuvQSVgdqT3qiH0 AQXwwZKhC0PurH1uGXXvOQ3 sahyun2qrNIW9LNvoHZDuDR F8XgAdSIIkb1Zblbh7RkVjg 9UvvFDbPUjqK18gt264HSPk yoGrU7iovKBkriapqYObesf gIYrgxkM9ZOIxGJawmrzoZO DrIWncF9nmNmQqHATtkTauY Xuhk7UeZAViVKEzMpMdmDOy RSFpAvp1TSTbyBCyKVQcTkW bB2nhayndToEBSKQem7tmT9 wexXIViJHgB5KaAFxszcIvR DlpTCreCaSzCUWzTV78OQP6 WOGnda92 CPT Code(s) (test code q0fjlFYoNITckTX1RdFrYYV = 3357) rd4xea9GhwSSkuXMgNNwscK YfnyPtzz78qXR3cF12MJ2yG RNsQjO4XJXarpJ1Cvx4GNOl JDImdPTzC774n4vxo7geomS dsUS5uMnnZYNfncgyLwD1PA sdFQZwaklpDZg4KRorZUBjw DU1PPWerCKyU8SyVSKlPJ8m hhg9LWU7ECmnLFCtJzV9TQN ooYVkXZKkjVilRKgzq879DE C0EyBaCITcjlThpZbiiF3hA rCxQVB9WLGaOOswCSlyOEMO L3ovMFM9 CLINICAL HISTORY (test b9mwgAMyINAlrFL6EpYwNBA code = 3356) ix9vol5CahFDxiXZtYVorhZ MwmcUpcn13hEC7lS91NS4yB LOpHeI5ZTOqtlF9Aip0ZBSr DHAdeAWtA579o2gkj3iiouL bfMA3kEwlIXVmjjccZxN4BT foCEZgpzxbZJl9VGnqRJGea WR5PYMupHYhA1DuQMPuFF9u fml0WIW7BVpdPNGcMeF7WQI yxDDuGQQhgElqSPifp887DP B0LyAlCOUffgJzsWbeeP7bL mVcFTAQviJhM4ObNFr1tBZi cGFyfQ== SPECIMEN SOURCE (test c3xhhCEiVTJutVC9AtPvGTX code = 3377) yj1izf8AegGDkhVBpEYfvnI TqjxRdon67cCR8kJ75JM9sW YIeYlS1PFYgurU9Gqt4RCOc YUGezFNwD512h2hze2mdsiF bfAG5tAnlAVCkybxaNzK7GF zdPRGycicjJBz9NKdgRDVru LK6LEOabJEvR0KfIJFyPN5q lcy0PDZ6QSgmYACuBoN4JUC nyOYuYYNecMtcXZjgf285ID G0RvAcIDKkbcXvwBvvwC3lY nMyMCBNaXRyYWwgdmFsdmVc cGFyfQ== GROSS DESCRIPTION p9iwfNLhVDBcpWDvBiKrUUL (test code = 3366) nSMBwi1nmXHVwhNJpNrEqHl NcZnRuYmpcdWMxXGRlZmYwe 0jji621aGArz3byNOEcEnH5 xLCcGKZivHMnU348YGSpUZe ru0lwj3DxNEGdnTUds9M2WV PPmpsdsSn6kEqeJ90pv5L1O wtfP2anNQHxVYBtP6SfMU1y OPJjBxk6YYB6UIA5LIXjGDG oD2NoOY2yTYHnyYTkDBd2g4 uzeAejLVGdEMT3s4rrRSnmk jLpLL9ypk4jaQl8e0hxsfXd XDIhOTJjlMWVXTIgW0PikCp eFo2yiRs6tRrjMecqKHG7Tg i0KW1vtt99ayq3aVkiFWOuo gktVmG6ORmyKUUrlbbxYYv4 MFxtYXJnbDcyMFxtYXJncjc yMFxtYXJndDcyMFxtYXJnYj dgKWjuJZLsMZO0TQmll348M NF7OKvnu1wef4mycSZyFcn3 MEXsCqXhZzkkWInlg7Scu9t eFSUszv1pOOX3gLHtqSrov6 C0wSDvASRfwWOlmtNxTHRmC hG9LDawDF2rkf54JVUvEMU8 qi5eeBWmmWqwzoLmmVXnXEq qH1OrZIBby439CRYiS5VpCG Rgt8L7wjIlMySvPGXnoLG9b wZ8PGAhEKt0gZRkftR4wxOt vDEiW4hhvO71XqGzdMNwZ2W liH62OfRvzVXlJ5BxwH26Dd WljEKrJ9NfwN10JsUsaFXmC CRaeTTrRx8buHCpzQLdl7Up lDUxOYrsD99pp660WNImlvK wP0sprHDcpqvqrFVwtrkgZS iwahA1IFKuDNCkVGuwZPHeL GZzMjBcbGFuZzEwMzNcaGlj yUhgMExuUqFnKNCdKTqyC5b cZjBcZnMyMCBBLiAgUmVjZW g8ASGljZ5rVf4jiMWczN9jr NMvALxbEDG5oGSgOAHnKKVz KVAyGE87Z2KjqI5or7BgUEE up64zHP3yKTYlqAEuKYflha FsdmUgbWFzcyIgaXMgYSAxL dQzF67riZ6avBBwB7ScVIP4 IDAuMyBjbSBpbiBkaWFtZXR gffG6BQ5dbHxnszK7wJIomT DuWGfjeLXgRZggVTA8Qn7jl QXtJZCnsbW6i3MoXDuwITHh y2HgxWXgYPVqPtdoCIEivCD kVOQdsgQjhQjkuT1rIwWzWh MyNFxwbGFpblxmMVxmczIwX DghyrntEVIuGHblJ9afGzJu BQViqQwwIHupu3CaZCAiDUN iGlDyPIZnAXFpg3teUB16KN xwbGFpblxmMFxmczIwXGxhb ytyMNHoEUttE6qiAjZlTHGe mLmsNSyqi3RyLGPsOQDuEoS ccGFyfQ== MICROSCOPIC f3pmhHWtWEAvoNF3GlFmWZP DESCRIPTION (test code sj6raf0UopPLgsERcQXchqK = 3371) CgicJyqm79aPL7mR91EW2yN CAcVbH7NLCmsiH5Kjo0FXQt UBTpqFWeB332l2ssx6srwgT mmNB7jUhlUJOdzyhaOkB2XT sfHFYeaeodIDb9EWsqMDIko FJ4KHRnoKLoZ2IvZHAjFV3v scr2XLA7WGkpDIUpLnI3YFY qiERgJRRfkQsyZVsmm343QO O6SpIzDKHzrpLjkPnphP1kP xUoOVGMDJFgo7LzEIZfQPQg cn0= SPECIAL STUDIES (test v5aaeXPyGHKwcYJ8KiYgUTL code = 3376) gt3uio7PbaEVomQYoSFiyoQ JtllOadf48nEA1nG92TA1oZ TKoAgL9NABoyvJ4Viq1LFNk PIXsjHBqX532VHWxMEGxlLj wker9vF94WJAljL8rzTYcHU gfdrBhAJfvnmSwhhPdHkd5T EM2wPbsBIKvvogfPrJ5DXgi UXRbsuqiLZc3FVkbERVwdQF 2XKPsyABrP1QeKSUxGC1qik w0EPG2STnxFIPzJdC9EUDwm NCdPMMgjWhhZEejy655AYU9 AlCaHOLlgqFdbFynlA8sWxQ cZnMyMlxjZjEgVGhlIGludG QakKNcbQK6mW8lEK4pMFZfo PWoC3DbGDKmdaImxLIiLHK6 mHIvfEKnGX1xOCkkdXTsa2e vn7RlG4ejtUsvmPA0DA7fMD UsKSEkCDawz6IowD3wYitmY FWeV5BeRGWRW1FHYQImBVIF Kx3SZaIKUqNxXyXDUi1oKBn NUywgQUZCXHBhclxwYXJkXG PwLCEYt342cp9mWSIcaGPjw gIXiQDfuY0nMRmxHHtfNXog xAJnEUopc0kgELQom3w0rBE oGSJooxMur1lnKZwqbqFzCI BdgGSilOPgLYExw74oVEnpm GwycUncCVRfq0ElzZjry0Gj WvPfFNdok9KjN15jgSVmzLI zyZtuNKDfwkQrPNEbd29vz6 jcHJOcFkT7pAOidAJ1dRFcg MPqi3GebDgoSTFsb7gxKOCw ba9kquhotQIah8IeiA7kvkr oVZotdXEafnUnSLEmk9a6tN GuUTWnFQTjXZclxMe4JWPww 504rs7mbuC7kQUoJCC2UDzp YWJsZSBhcmUgZXZhbHVhdGV vZHZbzlVpFUUeieIXxR20ay 7gwFA3q4LnQA9xk8ZdkQU0B WNobmljYWwgdGVzdGluZyB3 BUHhdAWgAf8ejUImAYY7JOD luZefzcVYtT3eVEBjXCk8WD FlFrTfWyvqvxGRRWWwX6HrK IRxltLbdvlzQGH0bX9xt9d5 QTaiIl7pJNHiamzpa4jwvvF onTOsj4QnUZQlilQer5XlFU PngsSpuKAbPIEghaHpmc9mu oQuJORfHUJhO3JibrbqaYte oaZ1KBMpCSYngWEoyLpuQSD tNBn9JPkegqZvs0GpYfUwcj DtnXQzgsSsOE1fQGTunXUwg tEaLPX0GYIlBJHVSqFgQKDx q5AvQI6vZZJohRyrKHCccH4 tj5UcCSEew27eBZAdGVGJXU EgaGFzIGRldGVybWluZWQgd PzuvSUkjZZgFSFaYVZnRU2k CGIclcInrGHgr9EjnYEggwE um3VqiuYoYSUoRME4IwDKyA GeeMAhrUOvigW7j2HrRCCyi sWgcVksmXKnbBKsqMEeu2Xe al7mOKSox0gopCxpJD0ebNK iZSByZWdhcmRlZCBhcyBpbn Vag3NfT2H6eI1wSPxfs2OfU a6xCLVhp4ThsuZlDvOVhQum BWzfYp3hMHHeqiwrrWOyG8V ydGlmaWVkIHVuZGVyIHRoZS FNwWrwmQWzpEQVOPSrxoS8u 6P8TRelaZPxgkBaMU02JAXn OE8faIIfyTZfq7OmFYx8QKY pZ9gJPK65ARmwGYPqmPPqvP scyEXoALJkBNAfcjWwun9tm ClmeUJmo00jqVZ7qCH8JPEr cG2cY3OzFTmhMv7xONZwoxs mkTKlnYroZi0qlFZhgM== Gross assessment was [facility] performed at ([facility], code = 2777) Department of Pathology, [address] [place] [address], [place] [address], Technical component [facility] was performed at ([facility], code = 2778) Department of Pathology, [address] [place] [address], Professional component [facility] was performed at ([facility], code = 2779) Department of Pathology, [address] [place] [address], [facility] [id number] 15:29:08 Test Item Value Reference Range Interpretation Comments Case Report (test code Surgical Pathology = 104) Report Case: [id number] Authorizing Provider: Logan Russo MD Collected: 06/18/2021 11:41 AM Ordering Location: [facility] Received: 06/19/2021 03:44 PM PERIOPERATIVE SERVICES Pathologist: Tom Paige MD Specimen: Mass, MITRAL VALVE MASS- for MICROBIOLOGY then pls send to Pathology DIAGNOSIS (test code = [id number] 3220) uZzEwMzNcZnRuYmpcdWMxIH tccnRmMVxlcGljOTYwMVxhb dFxFNCuaXJkA0FfynqsRKjm KS4aXM6tjPxrzNDfeXEoJAX cOeZls6ofx862xJLpm6avYP OHfvhszHm2tTdkV26ki1S7P scdS77joFYoCII8ILOoORAh cRErPMTcFKQ1KNFqqJQwP5t sAFXgTG6cdiirOHpnFJqnNE LcaMK1WWLljRZvA5FeYNBxA DqhZIAboww7QqMnZc2dyQSz eTcyMFxwYXJkXHBsYWluXGZ oTcPcZE3vIHTQWkFzVT6LXF JBTCBWQUxWRSwgREVCUklER K7BTmZxZG6VTRMCWRTQAfgl cGFyIEZJQlJJTiwgQUNVVEU yRU6LFQISPLUOH0HLMOWHF1 CUD2PEYSNJUjBoB8RPP2eQI PCEBCzSCu2puRCmHCMSKVMQ GZjoQ6OOMT0QCHWAXcOKHyD VL9BDS5ZWMN4QQ3MDHLUTYt NMZO3LLQ4XYASXNKPKXnYRN CKVGqQQJ5hET8smICipBIWr J65AEiVNGJMCN64iT9jSZLG NPDSNH2BZZ4wYY7kDKFgjI0 SOOTfLNsGQMoZALUWXWC6JY zRRPN5dEAJudn82ITS8MaLc f6F8BLS4RUThNYIzc3jiRRR mbGFuZzEwMzNcZnRuYmpcdW YpMVSsMlYuz9zbq068xBUll 1lfJVNhJpD0uVVaZJStvRBt P951SRSgAGrha9hwz6XkXEZ kqTDen8S8KBPGkmfrzXn6lR rnO10bn4O2FnnwJ2rjITLdB WExT6SnQC3aXGWcDxu2GRB3 TZJ4SCLoMHMwR8RvOI8aVNQ fvJZmCSm9t0bbnLnfGHXuDZ X7m2csRCgonvZaYO2jnc6tm Kh3x1dmrjHbIUNtGIFwvDWC LICqQ5AdzNgyAh0ksKp5gLz hLrhnXVW6Pkr5NA8zqx93yf l8tDbtPEHdwnafKvH5DFlbR ZFhdzgiNWb8IRcqURMgiUQ5 ZDJvwSGtR9QzAUDxQQ1ublg 0TCN2UHmkNVOtDmT8ICHjoG KiGOEhkGdaBFqgy532AWJ3J wFdKT6wZ5Nea2O7jS4vqUIg GBXztTPyWpSwAREvow4ptNY wNQhce3CzAVM6yyK5dTFnvB PfVNPwCvL1WFhsPF6kzu85R QTkURC3mq6gjRHsbJuyxbTn cWIxSJkxT1FhSMWox030LDX sQ1UbKBQwc6P0wyNiStSfJI UanXU2qvI9AWNkCK4gteohv 7rsUQudFQzpKEDcgcN7djL2 EDTbbZVkG4HuoU3xVPWpPO3 gxdkon1seRVJ7BVzaKKYnOF W7PmXhCRIde9Rukwo2UyMkx 3LdcCPgFZhqG56hb998HZUc jqJqN9mjtFWvenuikLVhiug dWZvswwZ0RUFeVYauqsxwKR AjELoaI4faYvGgFJSbjOuiO Pmio7GuEVZsWRZuIoTgsGMt SSOgQzb2GZInfYTfDVXnLoG mR3mvnfxaZnJFWCZnr5mhX3 igjHHZmSArX7KqTXdvtoNcR RejADvkGxFrJXYsMZ65DKK5 GCApbx95 CPT Code(s) (test code c9hblFVvXKZswRD8UmJpJGP = 3357) jh7fpi1TmqXUemXFmYAewyT WfntBwyu93mAU2mG11MX8eI TRoExR1DYQnliV5Ajf0IQLa YMWtpFIqL948k3mbs8rchvU zzPW6zWzsYURvcpklPtI8OE aiKFTmupbbGBh8YXluWTRig WH6YMFrlDDxM5IlJABbXB4j yrf0ZGZ2SNztVXPmAtX5FNX znGTbUUBwdUrpCTnzt383HJ A9QxKnUFIxodKshJvhmP4iA wVwQNL9LSVkLOwlQFujUQZJ M6jyNEA5 CLINICAL HISTORY (test n3ifaNZvAKEohXF8IbTgQWS code = 3356) ae4dgw0GmnXEshCRpCLlwcO AxaaItdb91eJZ3sV49SV2jJ ICvTzB4ABDmfcN0Noo4JVQh BINyeONyJ161q2bbi8objiC ljAO2pAtfMLMxxtszWaE2OQ olPOIblmkmLIf7KFetODGol WS3FSEvlOPfW4UyLWWxAR6k vno4MOX2HUggJGFzTxK1TKH rjKZxMUFysVdqVDsye117BE G3FdHeAEHzxnZxoQvjiS4mF dLiBVMXhiZyV7NgNWt2sCYn cGFyfQ== SPECIMEN SOURCE (test r5etdLZrOYGboDO9DiJbPUY code = 3377) vf7hzk2XuxRRzzYFdLAioyS CjamYsgf67oXV3jH62UY0uJ TLbOpW8GCFxinL1Cpx2WITv FRQckJUrV851g3aah0rwcgC slJI6cHetWRQbyyumPhV0IZ ikCOAsxszlNZb3PKelKEVzq KQ1SUYelRSlA1GdNJJbGF3k ztk5WYG5TCuyVUQfMkE0XHA clCZmCITdeDzuAXdwz585RO A4AnCqHZPzvtVtoAuvrL8mE nMyMCBNaXRyYWwgdmFsdmVc cGFyfQ== GROSS DESCRIPTION i1zxaPFaOLWirGNkQeFuIFA (test code = 3366) zRXClv8adPEXkkXKxTaXnGy NcZnRuYmpcdWMxXGRlZmYwe 5otn805hMDim3bcLETjCsD3 mUBnWDMbrSBrI427RDEmRCa te5nnq5KbZJNgxNZro1D7YS BZozussIf7jUtuF68wl6O2F zpzL5grEOJoGBRwX7TkEZ4v EEVxEaf3SMD8EWY7EEHeUWQ qO8HqAC5tNFKdcJOcNMc9t4 ajfVmaDTKlYNP7e4wjLUels hEaSJ8mpb0abUn7x2qrdaSh UUNyGOVdoAQURBXzQ2DvvQw nRd5rwDs3hDqoYnbfMSB9Jr w9YX9xpz75qjz8yIumALPmx fmsNjD5MCarUCGkjmpkAKo0 MFxtYXJnbDcyMFxtYXJncjc yMFxtYXJndDcyMFxtYXJnYj azXAsyLFRmTOQ3JIltk252Q UR6XYpvt6orm9yzgOVrKwj6 KTSwKyTuXunaGYukm4Uhh0m mAIEkib7nOAT0hCYolUuad7 L3hNKwPHXcwOKsisMhMYUbO kV0BKvfHD4lgv30USVkRWF7 qc6moGRsgZvclnXhnBTzCDk tQ6XgIFAyb643TTEpA7TrXO Csd4V7ehJsUaVzGTYleNX2c mB0KHFlXAu0fHOhyoE4vhHf nIPvG4fkbM64KiXsrYOrI3K hmM92FgCukDNoE6SjvL34Aa AiaDAvV8KtwS77JfAssJYlS VTngVSnNh3lqIBixFQqn4Ne qELtKXygK15kz577OMQjjdR zM4tylKAsokfxyUPpaeeuGQ rqmbX7HBCjSREmTEvsKSWeA GZzMjBcbGFuZzEwMzNcaGlj iDjmQGetSuUzNJElWEyvO1v cZjBcZnMyMCBBLiAgUmVjZW w7MJPanH7uNa9osPNqaV0an ZOuMHifWCW4zLTeSIDaAXHy LXCkZR69J7KhzY4jc1AfBKA tj97eHA9aWHXfkOCcAIegvu FsdmUgbWFzcyIgaXMgYSAxL oVcL63ocE6azFZxO7BpHSU5 IDAuMyBjbSBpbiBkaWFtZXR rzpX2QO9leOhfgrB9oFPzgI VnXMftfACkAMmnXJR9Eo4ee GIuMFQooyK3a1SnAOmkCGXz x5GefABiOLCzRsyoIPIrlBS oMBGzrjFdjBdltV0aCfHqBi MyNFxwbGFpblxmMVxmczIwX CdlektaWOLuXTkeY6djDfSu JOQvrLgmFYruo4WzZUWmZMW aDzTiFFPzPRKco8ydWL96XI xwbGFpblxmMFxmczIwXGxhb iudHKZtTAmrV1ogXhHqMTAs eQalGNbpc3MlLXVvGLOkRzJ ccGFyfQ== MICROSCOPIC k9mhlKGzYZVpkAG4XrWgEIJ DESCRIPTION (test code tz8okf2CztLGlmALwDLbtsB = 3371) TubbDsbd03eRK2sS15PT7vC GTjNeD5GHAgnhT0Qae0ZGMj YRNbdKIfN356h9rbf2qkacH wqQC1uDltPLJkxvrjOqM0BW nkQWOkplmdAZf6CGemOVObt WP5VIBixPJzV9VhUEGrGE0m dtt6OUZ7YOgrFANoAtD2JXB esZBtRSOqwHogKMdaq511XE U8ElVgDNQptkBvzXkimH5dN eLlRQFBQCCxo4ViXTWgLHPr cn0= SPECIAL STUDIES (test p8zjxVEmSFWmhPC5YsWhSKE code = 3376) xc5vvd3KveJHvpNQqGCefzF CsxjTxjq45tLJ0dH19TP7xU SUpJrR3IKNqmcQ8Ctu7SHGb GXRhrUIeX331RJPhAQOrjVh tsjn4bT17JJKudW5jrNTjSN asyxXpVNlankByqaWgRlz2I LF4ySvzYBSscunaUgA9WDfp TQMqaqajZVv7DMvrWPToiAI 3GOBiuTItY5WlFZDmCR0atw t5TKW7BXeaVHGnYaR4JDBmw RAaDOScrFbbSTjqd527DBL0 BfTrUHXaqaOwfVdncM6zLmX cZnMyMlxjZjEgVGhlIGludG QznPZqpAB9aF1uBM1oNDXan XZnD8FiMNPkdxOufLEhGIG2 sAQpnJLjQG3qTRasmZSha0p tq0BvN9zpnDvzdJM3VI8iWM OwTESyNYmpf6AgdB5uTcvxE XSqK9MzCTYEO8XELFYbVTHV Qd3KRiORPtTyMwMJQw6pIIy NUywgQUZCXHBhclxwYXJkXG GoRFUJj433wz7gXERatKMuo aNUaRQcvL1xQZjeMKvqYZwm jZQiFXhty4tjLLOlr8m8xSJ oKDSrqfGru3etNUchiaZpCS XtfKXknYEaRMJjp99hBSpnc TixaLucRRBsp4YlyWmms7Mz KyMxEAbjm0YrM36chXCipPC zbDgwBEWcsgFdHNIri11ct7 rqCLIbUlG5bHYrsWX2rUDjq UWxi7ApvNfqMFUue2zhUSZb qd9hhvsbaQUcq3ZzhA7bjzd tQZgakSGywvMlPRXlm4s3fP UuDHCxSDMsCRsbaTl4FQHvy 716cm2bhiT8iHNoVOL5LQfw YWJsZSBhcmUgZXZhbHVhdGV oUJDosrLnGZYthtWBiW36mq 6ifEN5o8SyJW5kx1ZjcHX4K WNobmljYWwgdGVzdGluZyB3 CJVeoQHfGg3eiRIqHAT5XJJ plPwkjqCFrL2zTUZyRFc5QW XkEbMrXfrwgoWWSHXbC7RiR YCqnpOfqspuOWE0dH8yr0j8 BOvbTl6fHVMggymwa8tfalH bwCYwy0QlDOVuqaJnn8RwIT DkawSinSGuZTXrkwBrqt0mn rSkLCBrCRFmG7LxzbaxjMzi mmZ6ZDFlRJLjxAKoyKylITA pVGj9OFqoxsJvm3MbSxRelx BdyERcnnGxYI7mUJAswWIov sEoJVH2OKDmRVSOCeDkEAAd c4BqGZ9eSRNwvLyeXSXlzK3 pg3EhBJSey70fCIKzSAAAXD EgaGFzIGRldGVybWluZWQgd PxinUFjpTLfEAAgHXGyXW3u NFXhuiFcbJCip2UibDUcgxK hq2ZedoIxILBjPXS6NgEPcW OquCPqqNNekdD6p2HySCChq nKrhFnunGQwhBPxkTIso8Rx sk4vADRpd4cheQjvGY6utIS iZSByZWdhcmRlZCBhcyBpbn Kmt4StH6R6iV5bOWngf0DbP h4mASMlc3FhseDeJlKKcZki ULoyHa2eWNClvcqdgMXvV6Y ydGlmaWVkIHVuZGVyIHRoZS DEdFwrfEIjyCMQYGKshwC3v 7D3QZsrnXFxkiFpDJ78NMRq CM7rxYCnvBIab5HxYAo6FCW hX6tTWY42DHvsFOPumXLdoP qxaLMuGNFyTCNgxfHbrl1zx UwvqUPwe17shQZ9aVF3KFPp sC3kN0FhSCtmAg9aSHGlpxt xwCIxqGbuVe5wvGOjpH== Gross assessment was [facility]'s performed at [facility], code = 2777) Department of Pathology, [address] [place] [address] [place] [address], Technical component [facility] was performed at ([facility], code = 2778) Department of Pathology, [address] [place] [id number], Professional component [facility] was performed at ([facility], code = 2779) Department of Pathology, [address] [place] [id number], [id number] 15:29:08 Test Item Value Reference Range Interpretation Comments Case Report (test code Surgical Pathology = 104) Report Case: [id number] Authorizing Provider: Logan Russo MD Collected: 06/18/2021 11:41 AM Ordering Location: [facility] Received: 06/19/2021 03:44 PM PERIOPERATIVE SERVICES Pathologist: Tom Paige MD Specimen: Mass, MITRAL VALVE MASS- for MICROBIOLOGY then pls send to Pathology DIAGNOSIS (test code = a6queXIzXLBrx5pgPOIhuLM 3220) uZzEwMzNcZnRuYmpcdWMxIH tccnRmMVxlcGljOTYwMVxhb lYfCEMnpINhL3AcmtjrDMxd ZH4kJR2dnCapwHEhmSFqKIH zOmPvz3faw784tTPqx9ahLE KYutzemJt2tCtwT53ua0V1R fabC50eyGIwRHG3OPFoJVRa gJTbHOYaDNP5DGDltLDmN7p jNOZyXF0wtiiqJMzmMRhfLT UumPP7SDLmqARqO3PhLMOvK PotORZpdvf5ThPqXi0ocWFl eTcyMFxwYXJkXHBsYWluXGZ vOvEqTA5fRBLJBeJdBL9SYP JBTCBWQUxWRSwgREVCUklER P2LCeSkAT1DMIQOHGHOQoak cGFyIEZJQlJJTiwgQUNVVEU aGD3LIEABDGFNS5PWJJCEQ2 OQW7JGEQTXJxTxG8GNS2bTC YBFCQeDUn4frHYbLQEJMEVT RQwuO3ULCN4MBHMBXhUJPpV WX5ECS4KVYC7JJ9WFWFWGOs XXHQ4HSB0WKIYTYGSPXnXPI MMUApCVM7vFJ7rsRKxjYTRp W35NVuYPIBHDA23kD1qHGHT UPMYHX6GPW5rNM9mVCOzpJ8 JDYVpXKqHUUxPTPDBJDJ2XL eWLOQ7hKEYovj60PAR4TaDr y7V6CPX6TGAaZWKpr3zuZGK mbGFuZzEwMzNcZnRuYmpcdW LcKTXxKfKzu2gmu637tDPnb 2vqYPTnUgV4xRVrYAHqrGWh B321RIGqXAbvx9frd6NwZOW lqTJwr5N7TDLZdvmalRi0pN kdE57iu1O1QuybM4vwVBLaP CToW9EhMM3vAEBxZco8WMT0 NYY9DRBqDWTnS3IuEY2kNAH zuKYaYFh3y3mseFmjDYNuPR Q2r2ubRVvszjYtMD4cad7wj Cc9j9ralaXmAZAgPXCgsWOP JGKaM2MeiWjgUf5keMt6lTe ePcjeESZ5Czh6BD4prh98ul y0nFdlAECqjwgxAoZ4FHiwG QKntqbgSUn4TCwzGZOkhGE5 PLAbrJKtS2PpQQNcSW9nbwb 8CBO5ZYqxVQMpDuZ5MYFlnF VsUVJmkFedWHtsw840JQY6M sJuAA4eY0Zeb1E4lM4rlYJq BVWdyYJtRzPkVKHqxi0orOC dJElle5RjHYX1ioQ3oPTjuG OqIVWnAdG2VXqfPB4rlq59W MPwUCF1hr7ckZTfjTbbbxSg oFHdDRbpJ8RxJAYnw371CZR gI6RdDTIhl1B0wcZrNzEmYL AsuHP0xfI4OWQaJS8bqdfnc 7xiLVnuANyaRZDmvnL8zfU4 SFWmxDZcP8PckC7yWSUkDW3 ksuvan1btABI7XOtnQMWpZY I0QwTtQFDzp8Ojosc1AvOjx 8QogMOuCWqlB45mt630CLNm kdSbO2vpnHVqxzwfaYDsohk eZLtqniJ4NZHpVWoryeljMV GrWOkoG2lzWvPxHAHaeOrxS Yfse4XiEDDyKBFbPfWxwWGl TPBeOaq0UFMudKPjZJHnTrR rA9oinlqxLdLMWBLia5xzT8 ilnHAUzCSvL9BkKHsxyqWcJ XgkUWvwChGiMETvIG29MRN7 PWGpzs79 CPT Code(s) (test code m5wawRJwAKCgkBO4UeNsTXZ = 3357) vu1pdi5MxyVUcgVBcGCdeeW OwtmBodp20eRR8gB35ZJ4bI TIzGdX1WHYnqnI0Nzz0ZNJk KPNwqFScL094v1uvc4lynrM bwCE6dMftOLWjrhraMwE6JC kaSPEkgyblXSf4WUdjPACaw OL6TUHmpNTgR6FuNUAoDP4g buw2XFK3XWihGNHsIkB4OZQ fyOGkXWNqcMzyBFwjw428NU G0AgSzACBbywTqpTvzmZ9fM fLfLHV5XGDpHCtzFJaxKXMQ C8esXJB7 CLINICAL HISTORY (test t6lcgVZyFSJyoQY7WsZaLMW code = 3356) ys3qwz6IloTCpvWIdWCfhoE EelnDxyv27iGU8oY37CM7mD BDzSeE6VOHvglH0Ulv6IUXj QUEcfEFcT548u6fnw4tmpjN tzTQ6sXuoPMYmhoklYhB0PW baLURyxaxvMXn8UEvtWUYek YM8PIRkrNOvV6IlLYSbBD7q wgy3VJB3KOuqXELqNtT9XFA fgNKrAWPvwXviPRxnu006EH N4QtEbWBAkpiRndDucqU4vH uFuTPLZsaYpK2HsMNj6pOHt cGFyfQ== SPECIMEN SOURCE (test a3abaKTeBGFytCY4YwRuSIK code = 3377) wr5jxi9MdrHGssPMnAQgceK LghxYojn91mCY7hB00IH8tX OLxQoL0RZXohdJ3Nmq5GINy NTStqONmJ841u2rvr0itfwN teKJ4aTudRNKlbewoRsG7II msARUcjfmeGRt5DSxoJNZfn PD6MKKhbCKbY6YjBPMjOU1p ihd4OOA5MZlcOUFwZfI9TPO dnYCtIVRgrDasCPreh103TB Y7IlYjGGUjtzIzmIwibR5mQ nMyMCBNaXRyYWwgdmFsdmVc cGFyfQ== GROSS DESCRIPTION m4bfePMwYMHthVTqAfMmWTD (test code = 3366) eJLOwy4dlLMHexXVzLuKkGb NcZnRuYmpcdWMxXGRlZmYwe 4jri368zAVqv7eqPMOoFrF1 lZQlLLVpoBHrB920GIHdNCu eg3wly2WeNDGzxIUjs6M9UP QOkiitnWn4eAiwE11zq5D2Q wihW9brHFCcNPUcT2CyZG9d DWMqSxf5CNC7QMO0WBZeRMU lJ4LuQI0hPSWazLZtMYd3l0 jtuKklGPRdGMH2e2lgGFoou oQaYF1zuq1aoRx3r6gkoaRs QGRbONNeoJRVEWMcL9DtpOh lPj7lgEy2gBeoRhzwLBF7Pp n5SP8phk19hfx8pVxhWGCuv skfUzR1HBxxXVKyepotTEm6 MFxtYXJnbDcyMFxtYXJncjc yMFxtYXJndDcyMFxtYXJnYj ikAVrcPPJgZJQ3ZJpnk444Q CA3HNdvt1tnx0fupYBuUls4 YAQdXiAiScvqZRuwy7Nnb8b gYUReqm1dOUK3jUByeRupp1 G0eYXiLBXzfPHpguPlHRWzI qZ3EVbeVU7vzg11LFOlOWN3 ko5vfEOmyZarnaAogALuFAr cN9KaASZiz006PGUwP7UqWQ Rjt2T0atYtJkZvVRPijSC5v kG5HXUzKAh6fLWymdE1ugCy iWIzS4asyM43AgEpaNLsS1K juT91PyRcjCAoX2KveR97St EgvMOwY7TslO92GbJdpFEuO ERjpBTtNp7wnWVlnMDdn8Vq kFJuMVkfV66ok026XZBvtvH pK0vndXJjndbnzQUmeafuER rlqdQ3NHLvYDGcPBzmPRNvR GZzMjBcbGFuZzEwMzNcaGlj wVvkUWetFyZzUXNiILnsB4k cZjBcZnMyMCBBLiAgUmVjZW j6PKFtuR6pNm0wzLDnpV0uy ICiQEouAPY7mXZnHBRxMMAn OIQxEN63K7OteI3hd6VbQBN ti50vDJ3aBDBoiHUoEOhlfh FsdmUgbWFzcyIgaXMgYSAxL iBoY44fxJ9zlWHwU4WeSRA8 IDAuMyBjbSBpbiBkaWFtZXR wipY5KE6ixPduhnD5hQRexL EvQSmjaGKpKLquSDR0Bd1fl WKuPLWjqhW1f9LkYCkfPRSz p5UybUJfVIBgVcqvYPLtkMF zPMNkeeDsdXztmI7yGkVoXb MyNFxwbGFpblxmMVxmczIwX RowogowLBGeVBdsX7vkLzMr CYRibLrgVAbwg1JfUMWtSLK cPpZcVIWpSELts2aoRT90LQ xwbGFpblxmMFxmczIwXGxhb ydtMBJxTJygS2ybDkNsVOGq yDtjZYhjx1DzLEMzLVFvKcW ccGFyfQ== MICROSCOPIC x4xsmLKaOCZsuRA1MeNpKII DESCRIPTION (test code lq2ukm3ZxuWLcnQHhZDrlvU = 3371) XyseGdwr95gGP3sE33YD7oM KLjSxB3VGXrjpS8Xee2CPKq NPMhdQDvM822y7qni0nvezM bpCY1lOpdIALlkpekOqH5RU fgCDJzerfvKRg3PTioUPCwe VE2RHLtuEMoS5RtHZOcGE0r icd3RIL7EOtgKPWjRsH0RCY dvMRzAKTunCctYYvlz921EC Y2QbXcEFGkjpMqaZluwI9pW lPvLVTJTPKiv7RpGHQrQRBo cn0= SPECIAL STUDIES (test c6jahGImTEFrxPM9PsMcQIZ code = 3376) mf2jxp3VlxMMzdPCqZXffwV WtakAnse02eGR7bJ27AU2oN CNpAfV8WJDpzuM7Ani2FIDt EAAquOCeX670REIlQPLaeKs fzxf4hL94ZLCopX8ycDUmJV sneaNqKHfplyVmolLmSnf4C WT1eUwuLEGpvgbgMxP2BIcc NTAhzeckYQd8XNpzWNWrlBF 0JPMraCBlI6AhPFOeXK3hzw g3CRJ2VGewFSXhSnY2WIRkx DOcVSBkxShrOQnhy110WBE3 MlIaOLVvwnKvzAnmqJ7vShC cZnMyMlxjZjEgVGhlIGludG EmyJKnmOG8qI6jQQ6yMGFyz TNmG0MlYGPvpvAyrSZmUUI5 kLTqfZWnCH2wWDirbXSvf9r lt2GeW4feuRdpcXT9LF2lKG PeJDGcSVvwj9JhqL6rLjwrM MMlI8HnOYBUC4GLUUEmMVHQ Pl5JKgBWYbGtYdBYYi0yIXu NUywgQUZCXHBhclxwYXJkXG UrLPNRv238wz1wBZKaqMVdl gAJqAZlfI7yPDipCQovWOsr cEYgXHpiu7ufHPFxc1g3kMM cYKRysiMiu7kqXJxsouIcZP QaoYSuaWPeMAZfh35fQWpvl RqjbGqmYQFfl1AlzGmge8Qm QzFiWAokp5DwP13rwSSdpGN oiXagTQPjipScZHFip99en3 mfDXUuCzI2oIItrNX4kUDeq BYow8PqoTzxOOZnk0wfLLCq za4qhjhmrBNno5NcaM7nawn hFUplgZVrnxLwFMQxn9x6gS CtGNGpSSKbLUvnhNe5FPYkl 074kd0axzL6lNNrLIW9FDai YWJsZSBhcmUgZXZhbHVhdGV mFEYgqmZcQINumkPSeQ58xn 0xzWC8u3SyOC4cd1JmgOE8F WNobmljYWwgdGVzdGluZyB3 SMCazXOaHo2usZRhLBU7AGK rzMtgblJZkB7sXETsBLk3MV PeBfJmNhazzbSTFXKnM5DqU XOipiDsuulaNVR1yS6zx9c4 LDhtWj5pVJMckoubt7vengR usRTgi2PnKCHmyqZck9BaKB SjdsCknKRyMTEzvdTozg5dq sSfXOZkFJMbA6ZmofemxRvf reU7SSQtQSOhqHIleOzeTZF zEAe0AIrbozJlc4CoKeFeqs LqbUVhwtCuZL0fLUZriRZqq mWyUSX0EHClSJFKBjYeQVLb z4HiMO5rDZCtyFckORIleR4 or2UiPZQax91cNKCxEZSOOO EgaGFzIGRldGVybWluZWQgd PadpPRbiWRfENAxOKEuHB2p BCTxaoEwlDSyb8DlgVLzxmR qg2GfyyDmPUZbFNK0NbTUjU LboIYwpCNdhoT2r4UdRACvn eEvcTklrHLrkOQbaUJdq2Px al5qKKLat4bopIcrIM4ihAT iZSByZWdhcmRlZCBhcyBpbn Uvr8AaO0F7xU0qGVzym3UyI g9dSVXen1MycmImIuJCbRks UNspRe5lRJPbqmbzlSAeI0C ydGlmaWVkIHVuZGVyIHRoZS WEqUughEXipXBFHPSkadZ0t 0D0VQwsqTZaffXvRE75SSEq FI6aaINwuWWed7WzNFt5AYO nD6nGER71UKpwJICawCTtpB akoUUaZMOkLVOmldShpn8ua HpgnXMmc47muGD1oKO5JWLm dU6pQ2QzUOxaFk2oWDGldnb ntIAqzSxpUy8kdRJnpD== Gross assessment was [facility] performed at ([facility], code = 2777) Department of Pathology, [address] [place] [address], Technical component [facility] was performed at ([facility], code = 2778) Department of Pathology, [address] [place] [address] 73489, Professional component [facility] was performed at ([facility], code = 2779) Department of Pathology, [address] [place] [address], [facility] Center[facility]issue [id number] 15:29:08 Test Item Value Reference Range Interpretation Comments Case Report (test code Surgical Pathology = 104) Report Case: [id number] Authorizing Provider: Logan Russo MD Collected: 06/18/2021 11:41 AM Ordering Location: [facility] Received: 06/19/2021 03:44 PM PERIOPERATIVE SERVICES Pathologist: Tom Paige MD Specimen: Mass, MITRAL VALVE MASS- for MICROBIOLOGY then pls send to Pathology DIAGNOSIS (test code = [id number] 3220) uZzEwMzNcZnRuYmpcdWMxIH tccnRmMVxlcGljOTYwMVxhb eYhZZUfrBIbZ5HrlmcwYNcz ZG7aDU3mzQbymWZidAKkQOI sYsJpk1wcd035gOYbb0mvUF KMyqdijLi7vRckG34wm1U0B klcT14vzPRkQVV1AHUlLJTg tQWsIMFbZYY4AKMxtVGpG2h bCEPeFC8ufxyjFEioFMhxFA KjnOH2BTYtoUMxB9FtDUReO UwiTSZxeqm8WbGjAy1onYGu eTcyMFxwYXJkXHBsYWluXGZ kHwYfAH8kRBHAAdZgVG6KRD JBTCBWQUxWRSwgREVCUklER T6PUkZlCU7DEANQVKNMKvpe cGFyIEZJQlJJTiwgQUNVVEU iBR6UAUOVDIWDL8RCGDWJF6 EAS7CBSHCTRkLrL5PKO6aQR XFJWPoPAy0fvFJwFBCULPZP RAsfT7RZKU9YUOFZRiPXKkJ KS3SEH6CQRX4VO0XUQFVKOv JIQX0ALL7LMKAONDFWZlGTS ETGBjCGN9hSU3quNOpnJVXj Q54XNyBLWPLGY83wS2hLBSK AVKBDT1DZC4lMA9wFMXojA7 MUPAlDLyUASjJTGRHNTK6ZL oGVJF9pOMIuew47IOC1NdKw v5W9RNL8ZBFmLRUzu0tqBRT mbGFuZzEwMzNcZnRuYmpcdW FdCWBbOuVrh7jwv127uTMxi 4xbQLWeMkT0uCAsPQWbaZPf O294PSUfCMvox1pfp1DpNKC vmUSmw9F7NDBTsobkuPq9lZ vhS21nu3Q2ExoiG8csINSnK APqL2ZrAJ4sFAHbBfl4YCX1 TEU3ILDvPEHnE0HhUS3cTRU xnGSxTIb3h9wgvYoqAEZqML E1g4riELxrewQeHT2xce0lu Fz7j6mxzpBpKQRrLMQixMQN PQBjU9GtqFimIn5xaDe3sZc iEdjxUVX0Tnx8XT0mqa77ln i1dYplGWQixhmgPrR9KZnjX TTjaggyWQy8NHhrSLOexDY9 JODgeGEzB9EtAQBjIH5ktlp 9JFK4ONnoVRWdQiS6PRLweU MlKAVsmXihJKpwu809LQG6V bCkHC8bJ2Pce5J9gW0epIXf HRZglKZySpNhCAMixr4arZI fZAcyd4ZqLCK1tkX0hECqrZ WaOBKcWlQ8BUdiUN5ezy88B ZDyMVV9en4heNLjzFnrbfSf wEWdBPsaZ9KvUFRme419EEA sD5TtFKZbd8O7dkLgTbYcAW VikSB3bhK3UMOlIF2vqlxpd 3vcAOfuYMsdFLBauyL4emD8 PAPesNXkC1HhcL1qLCFzIS3 cldakk5xkWLF1NPgwRITnJW U5TlQsERLpr3Kymci1StHns 0YloVKjALflS14hn473WSPg pcLnR4dfmBOpavlneLEcqhh rSHxlugV7SMBrVDwjdnagAR CiNQnsZ5bsYzViVZXizNsgI Vvaa8YyQLWmKDLhRdHgnZFu MVJiRqz2YBOdfTRdNEYzHtO zT2miyjccQoUEFSSox3ukJ1 jngICVwMRkO9LdXOsntqOeO OfnVIljZyRnLMEfTL44UPD3 FGRhaw60 CPT Code(s) (test code x8cdxEUpRANzxLO6EqStSFH = 3357) fi4uuo1NhzIOrfZBjBRknfV UlfpNcub51uLQ1qU49NS8pE LVySkI9ATLkomO9Woi2TOWb NPKmhJRlA558j1ocq8dwasG dwGM8kOhrYAAfcsenUaU8LR wrQXFuikiiBGd3PHicDDOvd VW7KDOptHIaY1SyJBXtEP3i blr6ACJ1IIcgDLHyJoZ5MEX phZMaYQBfuUroMSjqm215QD R3AkOcFFWdzrYekJhvzH4hX zOvHAG4DBKhTLewRPraTYHX S6oeNTN7 CLINICAL HISTORY (test z6vjxCMxRWLfeND5SrCxGNM code = 3356) wy0lgm1ZlaCBefABrPItueB DmnhLpgj88kGF3oO16RQ3jE GCmHqF9YHAnyaN0Oex0CDIk RGZxyCXaL570q3qcj5xjmnC cgHL2cTdpHNSejgqmRjH3WB qxLRBeuorbAQi7NUuuBTOnk OG9RBYmlCIhK2FpSASiVX5f cxf4PLI4NAvpGRNcNxW1QAX uoJAbMQMmtSjtJRgzf966UF R0OiUtFVUhzqIyePqtjX4kE oVpYRQIzzZkN6DlUGg7gLUo cGFyfQ== SPECIMEN SOURCE (test x3srvJRxKTSfbCH1IhAtHOI code = 3377) uw5khs4CyuWXdoYGvCJtynZ VkukEcag01sJN5mU32AG9bD EPlOyW9HVTecoY6Cbq3CIKl JBPucVGkF998e1nmv7ymedR ryGH7bPwjAZHbnborWwV9VF onXXJhozarDNc8LVnpHTYit BN2XREgwKHcS6IqIICxNZ8r aao6JQU1UWurFBFnOvU8ZXS aoYXfOYHnpNvvKLebq959SA V8VnCcOPRgrpBkrYapoP3nN nMyMCBNaXRyYWwgdmFsdmVc cGFyfQ== GROSS DESCRIPTION d9ovwOFeWVGltAXuRhXvZZG (test code = 3366) mKUTol1buBJGvkTFpRwOwPq NcZnRuYmpcdWMxXGRlZmYwe 9svc652eSAwb9dmKIGnLeO7 aQPiORRreTQeF806BZUwTHh fp2uym8SmMSZvrXOhv3K0DX HGjyodhJh4gGmvN66db3R5V apmL9zeSEHgECVqD9FtSX9x ISBeGvr6ALN1NAD7AXZpGXS gO9ViJJ6jXZSztXZkTDs9n9 ywmUjfQCUjCAT1f9mzSDefl zXiKY2yrh2ezHw7f7ladeRa AEKpEVPsaFLIUDRtF7HpqSy lHi9bdJv9eMxdLhniEMD1Dj k0QB9cta92vnn1yHedSSIai fwxVdW1QZhdDZStoafmREq6 MFxtYXJnbDcyMFxtYXJncjc yMFxtYXJndDcyMFxtYXJnYj mmGNooGRLmTLO6HVadn627F GZ8HIxkq9rfy9hovVNlOri0 PDNpSpNoEttnJAkya1Gbn6c dBNGozk0iUXV9vKGelNoff7 F8cEZvNFYeuVHtzdSrKYBzF zK5HYkyRQ9ozu44XZWnYGO2 cp2rfDAmqVdkgiHchCEaASq fU4JeIYTuq536AVXzT3BeHH Dzy3O9swWaNpOnKWLkdFA6y lN2PDThKNj8mMWinnS1bhXh yTYqM2oiqV78GaHpkKWpZ4Z guG66HfNboKIdC6JdgR79Kg TzfBVdI3TpdB25GxZwdNRoG IMduFAgOi3erUOafLVhg9Kt qQXoKAsuY07ox320SQFjjrG yH4xdxMJuhqdbmPLesefqZG abxrF7FWPcFSBaSOhqNTWfS GZzMjBcbGFuZzEwMzNcaGlj mRveWYvxVxDbDKYqQQqpK6t cZjBcZnMyMCBBLiAgUmVjZW f0ZCOelW9dHy9bcQNudU6xu AJfYQflOTD2oHKrRUEqPNUa TXKvSX86T7DhcR9hk3IgOPU kj52oQH8uCFFvxUDuXZzqyt FsdmUgbWFzcyIgaXMgYSAxL uLxU34xjI2crTMvM4AyMOA5 IDAuMyBjbSBpbiBkaWFtZXR tqwV4XB9lyEybrbO2vYTksG AnHOqqmWPjCQosZKA0Nt8ji AZbCEVnhaI3j0EsUOnzSQAz c2UgfVIfNVNyLrbrVRVvlVI zFUKelpApaDugcK0qYlEmAu MyNFxwbGFpblxmMVxmczIwX JjldfgaEVQtUIluQ7uhAnNf FBYldQjeTZiem9KtKOVwLHP nSqKtKNYbYYDaz5yqBZ38LI xwbGFpblxmMFxmczIwXGxhb edrQCEaQEcrD8qwBjKeQXUh tCbePFiby9SrFOEcENPkZlG ccGFyfQ== MICROSCOPIC s8odqNNrNDZwhAW6NdXyQRB DESCRIPTION (test code cy6euz3KyaJHooEWdNSddzT = 3371) UixzUumo41cXV7sI02MU8qF VUoFmV5OHEshcS8Fms4HUUg WTUgwQEyL682l1gti0yibcJ lySS7rYupQIGovuelEmC3YD pkTBWessnqVWm3JDzwQTVea YH8FECovKGaA9KdJXWzSJ3t fdy1QTU5QUifHWArDwF9OQD qsGBpKAKprHfxWQbif755IM D9KlTcAODaigYoiOtrhE7bT lHhWDYNKSAlm2UiRRSeANCa cn0= SPECIAL STUDIES (test f5dyyQLwHSAcyZR0BtHkLQM code = 3376) xt1bfa1WvtZMuaAUqUBnbaA MlgrRfwt60xPU3uH55JX2mL XFhWzJ2HUFdbeD4Pwf6KHCl QYXeuHUoR948CJVaMDEbnKj wuio0qC40HFVvsR9lvUWoYX iyigAvZWadogOlmxYzZqs8M RE5xCybKHKfrebxCuZ6OXul GZOgeyolVFj8TLnaGEXdtVW 8AZWpaJSkK9KkYNKmKP9wys h8UYH5LOdaBIIuMgK7SAUps IFuTKDvcQubLIkxl436VFD6 AyTeGUTjfbXbcHsowC8zBjQ cZnMyMlxjZjEgVGhlIGludG AdsBTfcNW6mS5jII3mFKExb RJhX2IuAJDfwhChiOUnBAC3 tXDwxAImYT5bXYxrpSBew2b ff8EdE2fihLakpYC3KP1xPP MgZWQkMGtln6TnqE6gGpixH PDqI8CwVQVUF9XJGEJfCCBJ Ft2QFjODZoLzLzJSWv5cYKr NUywgQUZCXHBhclxwYXJkXG CtRYDQc343xa7wOUFymFXgr jCGfQRikK3dPXfhYFnuMMns wDZaTNwrw1tpSRKak8n2aKW eBQOsczWrj5zhPRolijHpZY PckLUnmVAhVXFri55sFBwax ZbovQipFGLlq2FaxRfhr5Cl SrSvKIqbr1PbM20jlHHwmBG veGltAUIdplEhLFMsy48pw6 dlVYRjKvB5xCSqpUY7mPQtz CSyp1DjuVhjGZKaw8xnJOBh uz5ridrocJRyv4DhsY7olkv hFWdawYTqldLlQJYne9w5hA SrZFNuEJDlBOvrrFv4XJPka 159no6hyfT4uTXkZGM0SWmc YWJsZSBhcmUgZXZhbHVhdGV cGYRhriYsXHKufaRRwL86we 2jnMI8v8QrHA6yz4HarSS2J WNobmljYWwgdGVzdGluZyB3 SBXdhVRaBp1zaLHdSYG5EBG zsOppfcTBaS8yZSCzYBo9XF GfOaHsLxhnvzYDBRQvT5QhY EDhbpIceirjDHK2wO5bz8a6 XDzpIr6qQCZaaxgqn5uiwwC fxTRvu2XxOKMnccYwa4XbXO KqmyIxjVTxMDRgroPmxu7oo lXeNKFpNXPtD7YkekcckZcv omG0WINnZHWgyEYowDilQAJ qKGe8XOphkuBoy6GvClWeos WuvKLotvQzQI4lWPQzcJGjf iAsPLN0VSJqMYYYOuIbQPSh a3TaSF8hEGAwkVpaEDFmxI7 oq2RlLRQsm04iKTZsCXGWSV EgaGFzIGRldGVybWluZWQgd VxzqZWwfUUrCHKjDESeWU2k OJCfvlIqkCQtf7WlnAMoqvP ja3YixmReSBWyCKY9ViGRkJ DkvDJlmUKsolX1j0ZrHTRbh sQwcAvcvNMolAMtoATab8Kn zg4uJEIjs6nraKxxQW3ilZC iZSByZWdhcmRlZCBhcyBpbn Lnl3AuF0E7rR5yVNnns3EoN o9nAFTqd7LpymUvIzTVdBxn DHexVu8fYJKxhhegbOHnY4A ydGlmaWVkIHVuZGVyIHRoZS LGgYqzpTFkiONQMQWmhdT0m 3L5XRqfcSTvczOfGU11FEAv XQ4bzJZecAYjn2MhTCq0YTA cT2kCJT49OQtcPOOrzFXcjG lrdIMjPYPbNUDjlgFbde9ks XyzrDIxd26chGR2zOZ4UDYf kU5tN0VuCKsoZq1rKOUrhls bqVXtxPxbUv0jjRIanQ== Gross assessment was [facility] performed at ([facility], code = 2777) Department of Pathology, [address] [place] [address] 16[address], Technical component [facility] was performed at ([facility], code = 2778) Department of Pathology, [address] [place] [address]118, Professional component [facility] was performed at ([facility], code = 2779) Department of Pathology, [address] [place] [address], [facility] [id number] 15:29:08 Test Item Value Reference Range Interpretation Comments Case Report (test code Surgical Pathology = 104) Report Case: [id number] Authorizing Provider: Logan Russo MD Collected: 06/18/2021 11:41 AM Ordering Location: [facility] Received: 06/19/2021 03:44 PM PERIOPERATIVE SERVICES Pathologist: Tom Paige MD Specimen: Mass, MITRAL VALVE MASS- for MICROBIOLOGY then pls send to Pathology DIAGNOSIS (test code = [id number] 3220) uZzEwMzNcZnRuYmpcdWMxIH tccnRmMVxlcGljOTYwMVxhb lQpVIRucJHzB9GtqzsmJCgo XG5bGN0ywCavzIDdeXLoMBF nFzFcz6nwh126gRBmh4qbNV XYjolpvWv7pEhwX21le0D3M skpW76tjXVkOOG1OKBfFEOm dDGyNLWeQQX4TIKcqPCqW9n uNCOjDI4kcghzLMheGGasUX FrbSL6AXXwyWFbU4NyQPYfS UluMYDaibk6ZoWiHv3ooKLf eTcyMFxwYXJkXHBsYWluXGZ gYvLeLP5fRTJERfFaIJ4ORD JBTCBWQUxWRSwgREVCUklER T8PCsKaIH7YZNVBHQOSKykg cGFyIEZJQlJJTiwgQUNVVEU dOC1TGYMEMXOUB2FFIOSIY3 ODD4QGZSBWBbZsP2ASQ6gLW TFOTMbVEb1veUVkJRJQYDBC KVzrV5VCNF6BLYMWUlSFVcV LH3MGR1VHIB1PV2DDXEJCEf QZSC5ANU4OMMAJRSQNSfQMF OOWLlRVC6lNV8ulFTadDBEs X60QLdSJXATGW02kD3oRLSV TDPXZB7GDD0uPW2qOJVfdT5 OTPTdOEjHWTcHBGTJHVW9QA uUKIV6wYWObvo64WZX0SnCr x2L2DYA9GUSbVHNat7yzVVX mbGFuZzEwMzNcZnRuYmpcdW TkMPQaSpXmx5sxi137pKXdu 3gnDUNaFaL2mYNiTORiqOFv X511WAXeAKnbs9img2IaPUV ftVVsv0P0XDDJbdgzxEv6oX zdG22js0Q3YpryX1flJGDpN EOmF6UySO1nUFZoHow6HAO9 SZV9FGNxCDPiE8UqTD0dCTA fwACfTQy3z3ooqPxyKRVzCJ V0f8enJGsusiTuLK3fza0bq Kx2b8urzvGyDCTgXMGfaNGO GHYbJ3WrbRygGh8hmYk4cAm aQjwxPGL9Dmp0QK3kud43tu u6aIsyCDKnejccKjH4AJedB LMjoprdZHc7BMajIVFnoNW1 ZEQiqWUoF2EpSVRnJC5qitb 8OQS3WAbdQLLoOpA6UHYifC XnDDGmeZlhPFsyo920JZT2G wDoVX5hR0Ymn1C7xV8kxSUj WCYooNMwXjWrZEIkqd4ngEJ ySRjnz8KdKGI3poQ4iFZslQ RoSLAuYmA3LSugCI7hba04J LEbLGC2mo1qdNAcnUomhfDm zYJlCEylR9DcZCAac706QXM zV7IwXCYyx3R8kcZtUuUzCF KoqKB6kxP1EWHgQA9zpopjq 7bkIBqyKNeiOAIautL6ydT7 DYOgcRLhW8ZctM2hMSBpID9 bnccfb9vgHCJ8CVjwBGLoCS F9VvCdEJMls9Kqfsy6ZgDaw 0HemDNbGQayP76am447BMIa pzZiX3eewSGybsrhdGNxolf kFIommmW2OARtUKkvvkgtQL GlMGbwD5goWaAfPOXzzKmoS Zuib8XnDAItHICuDxHdzDEa DYJsKmq9BSLjjIDbNTNbAsO dY4wvwbbtVkCGBWAfk1jnJ2 dmsLAVzPOoE8DuOXrvikSuI YmtPKwvEfMgZGBxRT08ASZ5 YDTugb39 CPT Code(s) (test code p4ughCAgNFUacST1BpByJIP = 3357) qm1arm7ZfiOBkePJvMZmcjJ VcfaPyle98sCP0uE94YO1gI HKdYgZ1SACzjjI8Pda7YBMv FDLnzGImP509k4csq3tidiY qzOY9oDusJGNsyhoqKdC5UD kpFWPgpjodAPe1RIpeIGOlz HN9DZYscAYyI9IbOYXjXF1x hbx4ABH5SXjkYIFyPdP3KYM xfIBhXWQqxOogHWevm978TE O9DdWbJKCqmeHjxNqbmX7eH zPeFRX9XKCzHHmkJLasXORQ Z6mzOFP2 CLINICAL HISTORY (test r5fjyWRoXJQqvHI2IuBfVXX code = 3356) oq1nsa2LtcSSwnKEmWNdskV TwoyBzcu70bVI5iW60UK0mY WAtSmM2AYRdsjK7Bua2GHHl HPClsZUcH720s2cmw3rxhjX bkUS3nSkyYDWnidvbMiI3EW vqNQBhfemdGPz5ERlvCPXcd PO6DXSmuSInZ1HwENLaER1y rhv2FJN5TRzpPMAvUsL0DND ikEBzYMQebSnfYKsrb260CI E5NmKlJSPiuvIrrWanjN2wX dKuOHITjxImD9HvXUt2rDTm cGFyfQ== SPECIMEN SOURCE (test f5mzySYfATRwnNZ4UfJnWKO code = 3377) pt0oqt5VzkHFhjVYqXHpzjN HwsdQsro47xJE8cW16WG4kC GMzHnM8LACoibR0Dte8SFVf VJXyqJFfU116w8ldv5hdtcP erHG6xMqqNSIaqhorZwI7DX kcZKNancppAPh4HSpcHFFba GU8NXOfhAUwF6BdWNSwUI9e etg0VOC8BUobHJVpTdP2YCR fsMJoWVQyoBsnNYdwk396MZ O6IvFbDGGddxInvRmtbD0sV nMyMCBNaXRyYWwgdmFsdmVc cGFyfQ== GROSS DESCRIPTION t1hudORqQOCekZGfFuLqWHC (test code = 3366) eGJXjs9byKQZtdTLzAkJzRw NcZnRuYmpcdWMxXGRlZmYwe 1pgn503oWUpm3noJPNqDiT2 iAWrUMWdtVGsN322KSItQBj np9crj3UyGYThaQYdx6S0GV AZedmdpIu4rKlgP37ne8S7T feyT2vhKMErORDzF4RoXJ4u FCMkHox6PUW1PSH7HYOgCCN cA7JuKS6oJKSahQStCOs6v8 inpHggVVFiWYG5x3nfGIqlj jBeNH2rad7rlMc1e1cytiJl IZArNDWahLBTYACrI7CipDe kGx0exGl3aNcmWtyaNIX8If x4EL8qku01pli4bBzzDDYns lgeWiI7TSkfKJNuqbfzTDc7 MFxtYXJnbDcyMFxtYXJncjc yMFxtYXJndDcyMFxtYXJnYj gaIUbcBAVgQZR9URztw273H VR3HDmkv7liy4ykzKHhViv1 TKJwWqFvXozyMDxuh9Xhy5b kZHJedq6jBWK1sGYywLauq9 L3rLHyHNLouBHdlsMuVCJlI mS2PMleIY5zhh43MISoADV7 su0tbNMpjYvpoaMhjTGnHLs jB5DcYOYfv967JBZcO8AvEA Wdm9Y3emIyVrMrRCIvjEC8k dI9FFNiCIw2dESznqQ6enMf cTMzV2bgqH48NnBqoGYeL4H vzC87ElXpsQCgG4XdsV67Et AcqDQaU1PttM84JqYkvEFsK GSqsWJcLq3mnEYvfRGfi6Ps fJKnOEwaS41rm196TDGzrfH iW3wefIHumokefCOafxuaEC bjplK2KBEpEBArEIojIPSmL GZzMjBcbGFuZzEwMzNcaGlj rAuzHNksLlRgSNRqYMltE8g cZjBcZnMyMCBBLiAgUmVjZW o1WKApyB3fQp7fxELwnW5fj FTtQBcnECH0wIIaXEJlGKTp TQDkWJ40Y4RncE2qx8GmGRQ yh98fUJ1vDOLivFXeOPdryy FsdmUgbWFzcyIgaXMgYSAxL aGvA65heV7lbXWcL3UeUGV7 IDAuMyBjbSBpbiBkaWFtZXR eixB0EB0ucWsxfsP6fWCobG QrQOzmbGKdUMdjGMV0Ga1qa HTlOFChuyC4r9TmRJbwRISq x5QftNOlPBRcJbvgTPPwdDS ePIWujfZwuYemsB1rKnBwOh MyNFxwbGFpblxmMVxmczIwX UcfqbjkOZVsSVozF8dhAoEl XCChoZhrDQmwc5AlTLEkBXY jIaNcGJEoPMRfk1xbWA00XG xwbGFpblxmMFxmczIwXGxhb dvrRWQaCOgcJ3vqGfOtMLQf pUesJQjdq6MsSCAfTRShNtK ccGFyfQ== MICROSCOPIC f9ivbZAcSVJndVV6CtFlQQH DESCRIPTION (test code oa3oyh7ZolXDikMOmCFlwbX = 3371) SrjdVtrx47lNL7yZ72OI4gO VYbHgB1XLVplkZ5Vdn5JVUy AGEckCPeQ394s9dtk9vrloR deNG0mNtdXPHzgirjMqO9VW uoPFCkhxzfRFb0YJqbUALen PG0LHCqqCDzT8XuPECnQG3n hri7TWD9URizFXOgEwN4UJQ cdQSlUHMdhLqeDMsrw676DX C4FwLxDTOsbiRjqCdrwZ2eE lViSBIRKBFte5YxEUJiMHBj cn0= SPECIAL STUDIES (test b0jnmORrJSLdsTQ7NvYxAXB code = 3376) mu6nje9PuyDYcoKTcFLihxW LfpeRdke74wES5gG10YG0vQ ZZrRtC9XBRkfuM5Msr5EBPg YMXhaAOxL443FQGmCKDzvUb zphy0pO60IHIqfZ7ysDLkDH dtdaHeLIvrtpGcctRqIjk0X KM3yPthHEBkxprdArY6GHiy EWZrbwgpVPz0BMznQHQcrKF 0WXUkeLQvU5XvTZUcXW1euo t7YVX8AFuiUSXhQfQ7SZYha EDiBLLbiFlqQKhor706FSD0 WtBoWKLohaSedUhxxL8mCeP cZnMyMlxjZjEgVGhlIGludG CduLNgqJD5aZ8eGQ4tBJDjg ULyC5JjLBDmnpBmaAZqBMQ6 xNTnqARkER0lWDwgwECqz4x rb2LoO6hfgLgleLU0WR9mAN HdZGCqQAerg2WqiB8kWpnkE KVpP4JwGXFYZ0PGAVJyTMMW Jo6FAjLIIiIpNkTPXd2mSCp NUywgQUZCXHBhclxwYXJkXG PhAUBCl038yn5uKPKzdVRzz cWWkHCctH4iEUgqBJfiMDlc nBKpNOkle9ztYWZer6l4pGC cSOMrxdGsq4zlMPltbcGcMK XkvQDopGLcCXGzn18oGWkgp OrfdTfxWZLfv9BxtDomr0Nr ZkUaHTwfv9UtX62ddBKcvMB abCqaLRWrjdYtQHUoa71nm6 wmEGPnBvT7wXGcpCH3tEDgw TKim9KwiSorEEApl8gnZWTd we6iyffxrEVxg4HozO1tlyv nWMccwLVetoDsVRAbg5k6rZ RaGGLbOFUtZDmrtOz5HXKjq 579pr9nzwY4tBHgIKK5RHjx YWJsZSBhcmUgZXZhbHVhdGV lVPRepjHjWPYejfSAtO78ny 0beWG4g8BvRC1rx1WyjJU9X WNobmljYWwgdGVzdGluZyB3 BQOshOApWl0ueDEaSYD0WRD taBzsuaFSqM1dXJGxEZs9XY YxIjZhOxqmdaLZOEUtW6SiT YKlhgHwqjzlGMP7vR2pn9d8 BRwcNj8bSSVerigoo2ekhuF luJTka6YnTICkvpOwp2ElQD NpmjAjkXDrNUKgrvColc3pj nFdXUVyOGVsA8NxvcfnuOje eoL3PGDdIFDuwNMlwZczXKX nSPv1GJhdxhBmp1BhSlKcat DsiJRrpyNsIW7oANZljPAwq cSqCYZ3AKDeOBXCRlTnIJYx d7WvND0lUXWusKxoRPKjnT0 eo6BpMVNpf73hAHQyDDBIEH EgaGFzIGRldGVybWluZWQgd MdqdDFhmAJmSOZaWXMiBE6v DDLvsxMofYNgr6MivKRsuyL ra6MlaaSiBKUpWCW0QfQHhO DwaKNrtQIaztR2n6QqCFHwg lAxhPsagEMejVPupNCta4Gl ey9zJFZgz4gzwWqvQR5xiDZ iZSByZWdhcmRlZCBhcyBpbn Mas9MwB0A0qP2fNXdrd0EiM c6eQJLss4AbllJjFcLShIgt SGpyTv1bQQBsncydkROfN6K ydGlmaWVkIHVuZGVyIHRoZS KSxTrxkNJfqMBEFQFrsjL1i 4D3WEgauNRksbUbMT20GWBs CI4oxEPwgGXrh6OtLVp8IDT gS4bUBD73EUyiDYNdrCIejI ubvUJySHPiLTAfvlHrie2uu PbxwDWrv43wnHQ0pVQ3YPQh hY6mU7YtSXreXc3pQAHjort vuFCowDdhAs8ehYSraB== Gross assessment was [facility] performed at ([facility], code = 2777) Department of Pathology, [address] [place] [phone], Technical component [facility] was performed at ([facility], code = 2778) Department of Pathology, [address] [place] [address], Professional component [facility] was performed at ([facility], code = 2779) Department of Pathology, [address] [place] [address], [facility] [id number] 15:29:08 Test Item Value Reference Range Interpretation Comments Case Report (test code Surgical Pathology = 104) Report Case: [id number] Authorizing Provider: Logan Russo MD Collected: 06/18/2021 11:41 AM Ordering Location: [facility] Received: 06/19/2021 03:44 PM PERIOPERATIVE SERVICES Pathologist: Tom Paige MD Specimen: Mass, MITRAL VALVE MASS- for MICROBIOLOGY then pls send to Pathology DIAGNOSIS (test code = x9annMMrOFLbi9eyKMBrvDO 3220) uZzEwMzNcZnRuYmpcdWMxIH tccnRmMVxlcGljOTYwMVxhb qAsNFQadYYtM2KheghrMUrr CE0gEF9fjHeyqHEplEQxFJU sJgSxy7jui249kKKps9rbGQ OWhpiywTp0vKbmZ75lm3I8J srjY87tkREcSTV6MQSmHKIr rUHnEFTnGGM4OJHzrOMkO8z nSBBgJC2yxiwvKJaoKBrkTA XmtPJ0DWUmgYDaM6VpZULfV ZwkBAOnmke2FjZoFk1wvLYc eTcyMFxwYXJkXHBsYWluXGZ gBwEbCV9iFGLFLxKgRO4IIZ JBTCBWQUxWRSwgREVCUklER B2PUgJqZP8YKLJSXNTAZfmo cGFyIEZJQlJJTiwgQUNVVEU aXN7UHKQSOEFVS3MCQVPJK8 BKC1AQVYIITxLnH3FIN1qBR XCIDBxFAf2wfRUyQRRVBVNB MIkbQ6HQMY4YIWMYVhGUBkI HW3TEY7CPYZ0RI3TQVHNGFo UCLI0CVX2JUATRTANAIxPSO RUTPqQJF7oZF7xzLVbqYSFk W76IWcKUAJYMG02fV1dHRUV FCQDWQ0CMM2vMN1iOHZebB7 OHNIzONdABGoETFPGXLS9RN oREIG3ySOEude19VWQ7OzPg a2C9KIF2QVOnKQBtb5rtTSN mbGFuZzEwMzNcZnRuYmpcdW OrGBGeIxBvi6mxb935iZJkt 2pnTQYsMbG1sAWmYTZrbOUs J769IOYxNVwln3mph5DjSFV ksNUkj6E9PRYQibtmvTs4bJ bmF62fz6M4OflqB5nwLXScC DQeH0UpEE4vQLSdUxc4EHA1 GIZ3ZMGaDDQrR2RcWM8zDOH adAPnJXi3h0pfvIbkNGVxVB R7c2icWZzxdaLdZX6xye3vi Om7a4gjekJzNGHdAEEwzGXV TWVyC3KrbHhxIr5vuUg4gMn nVtilMXF2Kvy4EQ8mju20ql i6oFzfCCXvvrsfTlX6CJniN XGitlbfIAt6MRayDLWukRM3 HUJdoJIaH3VoTVAeQL8eoth 5TLN6UJxzWJItHyI5BBUjhM HqHOMumPjxLNbhb644LSI4J oUiAG7lX4Isq3H5pH9fnSWw YIBqzFXtPnHxUSLuvo9ivSJ kWJtxy0GjIUT3ghG4sILsoZ BbDSDhDcC7DAkdWI8vyo49X ESxZJP1ud1esERsgMzpynRw tLXqSFfrQ5TiJKWgb787RNF rL0NeKUXgt2O4wxZeQhWmYE TzmWD5yrU5ZHImTG6rhtzzb 4rrTLqgOHqzWEUiygI7kuW8 UKEenMVvW7EdfO9cSAFzSW5 eizadt5xhVVO0HHvfWLFsJM I5KoAqZILbj6Rqoab4OlYuu 0YexJLsHYohE90nw993IQRx hyWhM0twlAQvbvzvjNTjffx vHBhnuqV7MOLxIOndskuuLJ XmMPqhH9mhClNmFIFqyZeeG Wbzi5SjBGZbKIPhIjUbuGQj SLHbCuy0HIKapEReYFHmAhF hV8uzzlrzJdKNKWSvv1tdQ7 qmlRTFdADsN4SoGWdqqiOmZ XumXXdfUmItXXHaHB29FAS3 XMGrhi93 CPT Code(s) (test code a7xdlJCrJQAkrQE3VxFzEKU = 3357) sb9eac3OogVDnsDCwMAkqvH YxquRatw71zXH4eW63UG5iD BUgHxV5ORCpzcI4Bqm6YZLg OVXivRCaQ552a7nja4kzrhE jtWB8vLxkNIJemdslFrT2QC zwPEUfobifZTp4CYrlNHPqp NI8OTNihFSlF2QmGSDbBU7i vqg3HMZ5GZhqWONnTmF3GWA lkRIeLMShyRyrCBqyq364XU L9NuFvSNKwchBrsQldxC2kD eNjPYS7ZBVjXRoiGXtmWJYJ S8qrEMH7 CLINICAL HISTORY (test m9cvaCBrUQUghAE9ObDeBXJ code = 3356) vv3qay6MpoGVsyLXjVUcdrR WnpmZqer53jDV4jW73XZ1mR GUpGtO3TLSpaoC6Msv2EUTw IABpgFBvB253c1yem4sygrN rkYN6aKxoUAMmizisNrT9IJ nrRXDdalshPFi0RXreQAKxm RG4ENKleJJrZ7SkTBYjOL7d djj0OYU2LNhmTVPiBwZ9QQX hzWFfIXBsuBxuLHmsd631KS H0EcWoIOElrlZbsCfjbD3fI qBqKUCVhiTiB8QyZLc1yNJp cGFyfQ== SPECIMEN SOURCE (test d3cogRQxJTAqwLA4MyTtLHM code = 3377) vh5hqy0DqhERwbAWxSCrvpW DozuEbtp16pDE4mH02GY4hJ HFgBvP3YBPfasW9Vvx3ESWw YYGqxFGxB188s8gfm7rbbbX ltZG7nIolGWSpoyzxQxS2XW qySIIjlcucOFv1OVbaLFVxu JD3TAEyuXTuU7MoYSWhFW0v qix3GPI8IVkuCOFyTxY6KPK iePNsTCDzpKpnIUekn045NO C9XvLkMPNfipEyhCcdlT6jS nMyMCBNaXRyYWwgdmFsdmVc cGFyfQ== GROSS DESCRIPTION e7htkSIfLDXbeCIgBcEbOIA (test code = 3366) yVDRcq6syBGUbkACoAhQuIu NcZnRuYmpcdWMxXGRlZmYwe 5neu007pCTac8kxKYTtTnT5 gVNtAOVqvWKzI440FXCbXLb ui9eij8SaVXSjmPMic5A4QW BSudrfbAi4zCcjB44hh9Z7K wlkO4ijFBOqNIPmT4DyQY7z UOWmLrm1QZR2XUD4VSPpRAX nK8EaWN4zQJPqsTMqKNt0j7 ptvBnzMRMgEXK3s2zpWMfqa kWrYH8kuo5skFs0s5icvnAk WSNkFGAwjBTGLAPiE2NnrKl qMs7ujVk7oYqgUkimBTP3Qk v1UK8yzd77nuq0jHrlNVOgn likVkN4TThdOROyizbtEQj6 MFxtYXJnbDcyMFxtYXJncjc yMFxtYXJndDcyMFxtYXJnYj ldWSudZHKpSIK1GCris649C DG3ENohx9gcu2gusMKkWtt6 IZEgJoPfVlclRFsng4Ovn1z kKYTupq5rNER1cHTvnJwjx9 M7bEHyNNGcvZHxdnAmSMHoK rH0KMekLE5atj40NIHnAFT8 eg2suVWmsHioubYmdFAhYYh rC4VtBGDja133PHRiF6ErBR Zgl3Z1pyGiCaBeJPKeiGS0p mC7CXEnSUg0aSNlzrZ4kfOu uQAyW4ivqN98XzDkqVXjX8M gkX31SaWuyWMjS9HyrI72Cj VmsWUuJ8QjrP17CrStnIUvJ GXyzZJcRs7rbUMqtZXiq9Bw bCVfZKejQ20yf270OQQjrwF eS8jftIDsnqcjmODffhsyUE gcoyL3IKBxOZNnJBvcYSRzC GZzMjBcbGFuZzEwMzNcaGlj oWqsDOwcGaEcJVZiAXhuI2p cZjBcZnMyMCBBLiAgUmVjZW w3JRLbfA2bXc6ufXFtoM1jj BKmMDfqWCF3zZHcXWOlPLVq RLNpHY20E0WuzW9er0TmWOD ss22cZL3bNXIdaEQdMPjsll FsdmUgbWFzcyIgaXMgYSAxL pOkR44buV8etBDbE0XhFIZ4 IDAuMyBjbSBpbiBkaWFtZXR eihQ9TL8kjEmeqiO0jVXymO SxJHeitRPzQSgkPGP9Ns0eh KOwZFXnehB2e4BdPNwsSERo h8LnaBJtYWGoJjezAAJygLA wLEBqwtGfsFewsB9cYmOoSq MyNFxwbGFpblxmMVxmczIwX UlkvmoqALKbGYmjS0zoEsOq HPDhgYdjJNkdn3UvNSAeNZQ kQfJtVZShSBFsb0yaCG21GF xwbGFpblxmMFxmczIwXGxhb mgfRUAnZSifG7ubIjLgYJWk lLubZJwgm1ExQZKsTYGfCdQ ccGFyfQ== MICROSCOPIC g3wxwUJpFUBirVG1LvVpPRK DESCRIPTION (test code pj1oxx7YnnWSzmSZzVNgmbL = 3371) LyyfNmpn46uFP0qO68YS7gL GXsYkB1HAKmjmN5Lqr5ZGJk JHBnfWVoR224p6kbw2zlzvC rmCY8yLxcWBIrgmarSiK1IX wtJKWmyfymSPw2XTqxBNKmm RD2MPKfjZEbD8SpVHCjMM8s xrf5FVG6EEqqWELaFcZ0XRD grBKuTPPvvPrjAVlcn306GV K4ZyOnVVXqmyXhlCacfS3aO kZrTDTDQELyl1QuNMLhONJe cn0= SPECIAL STUDIES (test s6sdjSXkZPVzqSP4RoLsTQA code = 3376) ss3zmv6XcqLGpqAGvYXrsuF OzedEpbh33dPS4lL67MX7jY WEgSzL9LAExnvK9Mcp0LBNr TJXghUFsA326IUAeIYVpiRq mrnu0bB39YUJlhJ9ciEXyNN bwouAfRNedzyItrlNgZnd8A XT8ySnwIXIcoqvrDuX8NKjo UUEsfqeiEBz7HIdqWTRmsFH 7JAOqoRPvR1PeGJDfLM3bpm c9UCG5EJoaYEAwCmH8BUCcs YQlDHDdqHlhKRtmw268WEH6 OyCkWXBujrMojCtlmI5dZbA cZnMyMlxjZjEgVGhlIGludG QpsQIdtNG4uC7tPW1eSBDlq RClQ9KiIIVymqKinITuYHC7 cUVvnUJuQK2lPYweqYCka9t nc2FeS0hefSkjxXL2OO3zLQ ZpZEPmDPxyk6ObyS1qSytuK CJcH8ZtSMIAQ3WRQPChWSVO Wj6LEhEJDlElScIEDh7wYVh NUywgQUZCXHBhclxwYXJkXG VhPKIEk309ah2wWMJkvIRvh zOKvPFfqB8lSKuuHRxvAQue zYAaNRwul5xqPAXeu3q3gHQ sMWFhjmJvs8geSMnkwuOkXT HaxRIokDPyRNWsk84jOOdel SxedSrhKHEhi8KsaApbw4Fo GgJfOJkyy4WiZ18enXWktUQ qsCfmEFLswlBdOZKzl27gy7 wxUOXgGgO6xSTblXC6aCNqb RTkf9OaqHqhHILja1nnDFBi yr3vglwyaSKxo0UnfZ5mkup gHTnayMQfptYlBANqm1s0nU WhPLZaLGJrQWeamFd3LOEwv 048zi6qfwT7zLCcYLD3KOri YWJsZSBhcmUgZXZhbHVhdGV sPMPbswZgQLWkfiKIlJ88rn 4irMI1t2TpSU0bn0ZhkZI2F WNobmljYWwgdGVzdGluZyB3 TJJkyJCnKr8zzVSfMNT8HKO zaSxrxsLRwP1qPOGgTAc7QC CiLzOiAvkfrzLESCBqD0XpZ QMxnxRkrbkfTHB3oX8rm9q1 YXuyBb2vZAFncspye0jxpmP vgBWkj1SiAXOqtkMyg7HmQI TekuPniRSvTSKkeqHymk0xg kNaEIDdPQNjG5AsfxjlcGux kdN5DYQtBQJxsXXazVmrTFY tEHh9MArtofEju5RkBuDpux AngCMyswHuSI2nGAOjfZSbu gLnKWC1ZYNqBIUMNiTpSZRq y5QaBZ4rFPRrpMeaKFYzyY3 ki0XmIPKla34cFZPlZOAWLT EgaGFzIGRldGVybWluZWQgd WllkCVhqPFsZMWtMGJiHX9d OXJqywAmkOTye2AgrNDmxtB eh2VgnvWiTFWrRZM2PqYPlJ OtsDJojAPnthB2l3ErBMSrf lCncVosiYWbiWHiiVNcq3Ww kn6gZHAzt2cssVaiBO0hhEX iZSByZWdhcmRlZCBhcyBpbn Kfh9XfZ4U0hC5tYGazh7IsD p9mTNXwg9GrocMrYxCCeLvv IIfkVf5mJPGzvirdqFDqJ0Q ydGlmaWVkIHVuZGVyIHRoZS PBxHhibGVeaWKHDCLttmW2a 1O6FUbgeCQuosYsDU32SMSq GV3fnDIuaABza1NmDPy9XGD vO9hIXA07CDcxKYZcyWIrgH tajSLzODFpLBFdjgLbcp8at ZzeyGUjw05exNU9jQA7BTIh sZ4tZ6YhADzxEa5uPEAfagg cwJXaiYfsIh8hmVWkoX== Gross assessment was [facility] performed at ([facility], code = 2777) Department of Pathology, [address] [place] [address], Technical component [facility] was performed at ([facility], code = 2778) Department of Pathology, [address] [place] [address], Professional component [facility] was performed at ([facility], code = 2779) Department of Pathology, [address] [place] [address], [facility] [id number] 12:37:44 Test Item Value Reference Range Interpretation Comments POC-GLUCOSE METER 98 mg/dL 70-110 : TESTED A T [facility] 6720 (BEAKER) (test code = [facility], 1538) [id number]: Inspection And Testing Supervisor/Techni kelle ID = [id number] for Kathleen fay (contract)[facility] POCT-GLUCOSE [id number] 08:40:16 Test Item Value Reference Range Interpretation Comments POC-GLUCOSE METER 120 mg/dL 70-110 H : TESTED A T [facility] 6720 (BEAKER) (test code = [facility], 153) 74305: Inspection And Testing Supervisor/Techni kelle ID = [id number] for Aditya brewer (contract)[facility] BASIC METABOLIC [id number] 04:46:57 Test Item Value Reference Range Interpretation [...] S NOT APPLICABLE FOR DIALYSIS PATIEN TS. Inspection And Testing Supervisor ID - HIEN MRAD, CHEST, 1 VIEW, NON [id number] 04:07:00Reason for exam:->post-opShould this be performed at the bedside?->Yes [facility] : 1955 Sex: FFINAL REPORT RAD, CHEST, 1 VIEW, NON DEPT INDICATION: post-op NAZ RISON: Prior day's exam FINDINGS: Portable frontal view of the chest. IMPRESSION: Support Lines: Stable. Lungs and pleura: No interval consolidation or sizable effusion. No pneumothorax. Heart and mediastinum: Stable contours. Additional findings: None. Signed: Andrew Cary Verified Date/Time: 06/24/2021 04:07:26 [id number] 03:54:16 Test Item Value Reference Range Interpretation Comments PHOSPHORUS (BEAKER) (test code = 4.3 mg/dL 2.3-4.7 604) Inspection And Testing Supervisor ID - HIEN [id number] 03:54:15 Test Item Value Reference Range Interpretation Comments MAGNESIUM (BEAKER) (test code = 2.4 mg/dL 1.6-2.6 627) Inspection And Testing Supervisor ID - HIEN [id number] 03:40:54 Test Item Value Reference Range Interpretation Comments PARTIAL THROMBOPLASTIN TIME 40.8 seconds 22.5-36.0 H (BEAKER) (test code = 760) PROTHROMBIN TIME/[id number] 03:39:49 Test Item Value Reference Range Interpretation Comments PROTIME (BEAKER) 13.1 seconds 11.9-14.2 (test code = 759) INR (BEAKER) (test 1.01 See_Comment [Automat ed message] code = 370) The system [employer] generated this result transmitted ref erence range: [...] WBC 0-0 (test code = 413) POCT-GLUCOSE [id number] 21:07:58 Test Item Value Reference Range Interpretation Comments POC-GLUCOSE METER 143 mg/dL 70-110 H : TESTED A T [facility] 6720 (BEAKER) (test code = [facility], 1538) 68632: Inspection And Testing Supervisor/Techni kelle ID = [id number] for Sheryl Bergeron POCT-GLUCOSE [id number] 16:23:05 Test Item Value Reference Range Interpretation Comments POC-GLUCOSE METER 126 mg/dL 70-110 H : TESTED A T [facility] 6720 (BEAKER) (test code = [facility], 1538) 54746: Inspection And Testing Supervisor/Techni kelle ID = [id number] for OSMANY VOGEL BASIC METABOLIC [id number] 13:28:45 Test Item Value Reference Range Interpretation [...] S NOT APPLICABLE FOR DIALYSIS PATIEN TS. Inspection And Testing Supervisor ID - HIEN MPOCT-GLUCOSE [id number] 11:56:58 Test Item Value Reference Range Interpretation Comments POC-GLUCOSE METER 122 mg/dL 70-110 H : TESTED [facility]ata T [facility] 6720 (AKASH) (test code = [facility] [place], 1538) [id number]: Inspection And Testing Supervisor/Techni kelle ID = [id number] for OSMANY VOGEL 2D Echo W/Doppler(CW/PW/Color)2021-06-23 08:20:29Ejection FractionSLEH ECHO HEARTLAB MKCKESSON [facility]2D Echo W/Doppler(CW/PW/Color)2021-06-23 08:20:29Ejection FractionSLEH ECHO [facility]Do[facility](CW/PW/Color) 2021-06-23 08:20:29Ejection FractionSLEH ECHO HEARTLAB [facility] W/Doppler(CW/PW/Color)2021-06-23 08:20:29Ejection FractionSLEH ECHO HEARTLAB [facility] W/Doppler(CW/PW/Color)2021-06-23 08:20:29Ejection FractionSLEH ECHO HEARTLAB [facility]2D Echo W/Doppler(CW/PW/Color) 2021-06-23 08:20:29Ejection FractionSLEH ECHO HEARTLAB [facility]2D Echo W/Doppler(CW/PW/Color)2021-06-23 08:20:29Ejection FractionSLEH ECHO HEARTLAB [facility]CK[facility] W/Doppler(CW/PW/Color)2021-06-23 08:20:29Ejection FractionSLEH ECHO [facility]LAB [facility]/Doppler(CW/PW/Color) 2021-06-23 08:20:29Ejection FractionSLEH ECHO HEARTLAB [facility] W/Doppler(CW/PW/Color)2021-06-23 08:20:29Ejection FractionSLEH ECHO HEARTLAB [facility] W/Doppler(CW/PW/Color)2021-06-23 08:20:29Ejection [facility]ractionSLEH [facility] Echo W/Doppler(CW/PW/Color) 2021-06-23 08:20:29Ejection FractionSLEH ECHO HEARTLAB [facility] [id number] 07:43:14 Test Item Value Reference Range Interpretation Comments POC-GLUCOSE METER 111 mg/dL 70-110 H : TESTED A T [facility] 6720 (BEAKER) (test code = YUDY WHITE [place], 1538) [address]: Inspection And Testing Supervisor/Techni kelle ID = [id number] for OSMANY VOGEL BASIC METABOLIC [id number] 05:48:55 Test Item Value Reference Range Interpretation [...] S NOT APPLICABLE FOR DIALYSIS PATIEN TS. Inspection And Testing Supervisor ID - HIEN [id number] 05:28:52 Test Item Value Reference Range Interpretation Comments PHOSPHORUS (BEAKER) (test code = 3.7 mg/dL 2.3-4.7 604) Inspection And Testing Supervisor ID - HIEN [id number] 05:28:51 Test Item Value Reference Range Interpretation Comments MAGNESIUM (BEAKER) (test code = 2.2 mg/dL 1.6-2.6 627) Inspection And Testing Supervisor ID - HIEN PHAMD, CHEST, 1 VIEW, NON [id number] 05:08:00Reason for exam:->post-opShould this be performed at the bedside?->Yes [facility] 1955 Sex: FFINAL REPORT RAD, CHEST, 1 VIEW, NON DEPT INDICATION: post-op NAZ RISON: Prior day's exam FINDINGS: Portable frontal view of the chest. IMPRESSION: Support Lines: Stable. Lungs and pleura: There is improved aeration of both lungs. No new airspace consolidation. No pneumothorax. Heart and mediastinum: Stable contours. Additional findings: None. Signed: Aldo Cary MDReport Verified Date/Time: 06/23/2021 05:08:22 [id number] 03:01:03 Test Item Value Reference Range Interpretation Comments PARTIAL THROMBOPLASTIN TIME 35.7 seconds 22.5-36.0 (BEAKER) (test code = 760) PROTHROMBIN [id number] 03:00:01 Test Item Value Reference Range Interpretation Comments PROTIME (BEAKER) 13.3 seconds 11.9-14.2 (test code = 759) INR (BEAKER) (test 1.03 See_Comment [Automat ed message] code = 370) The system IAMINTOIT generated this result transmitted ref erence range: [...] WBC 0-0 (test code = 413) POCT-GLUCOSE [id number] 22:23:22 Test Item Value Reference Range Interpretation Comments POC-GLUCOSE METER 146 mg/dL 70-110 H : TESTED A T [facility] 6720 (BEAKER) (test code = YUDY [place], 1538) [address]: Inspection And Testing Supervisor/Techni kelle ID = [id number] for CRISTINA LAM MS POCT-GLUCOSE [id number] 18:28:19 Test Item Value Reference Range Interpretation Comments POC-GLUCOSE METER 101 mg/dL 70-110 : TESTED A T [facility] 6720 (BEAKER) (test code = YUDY [place], 1538) [address]: Inspection And Testing Supervisor/Techni kelle ID = [id number] for Tacos rene (contract), [facility] er BASIC METABOLIC [id number] 14:57:30 Test Item Value Reference Range Interpretation [...] S NOT APPLICABLE FOR DIALYSIS PATIEN TS. Inspection And Testing Supervisor ID - AAHAMIDPOCT-GLUCOSE [id number] 12:37:53 Test Item Value Reference Range Interpretation Comments POC-GLUCOSE METER 69 mg/dL 70-110 L : TESTED A T [facility] 6720 (BEAKER) (test code = YUDY V[place] [facility], 1538) [address]: Inspection And Testing Supervisor/Techni kelle ID = [id number] for Frances knutson (contract), Amb er Oxygen saturation, [id number] 10:49:59 Test Item Value Reference Range Interpretation Comments O2 Saturation (Measured) (test code = 79.8 % 22277-2) [facility] [id number] 10:49:59 Test Item Value Reference Range Interpretation Comments O2 Saturation (Measured) (test code = 79.8 % 89958-9) [facility], [id number] 10:49:59 Test Item Value Reference Range Interpretation Comments O2 Saturation (Measured) (test code = 79.8 % 61228-8) [facility], [id number] 10:49:59 Test Item Value Reference Range Interpretation Comments O2 Saturation (Measured) (test code = 79.8 % 27724-6) [facility], [id number] 10:49:59 Test Item Value Reference Range Interpretation Comments O2 Saturation (Measured) (test code = 79.8 % 37496-4) [facility], [id number] 10:49:59 Test Item Value Reference Range Interpretation Comments O2 Saturation (Measured) (test code = 79.8 % 16755-3) [facility], [id number] 10:49:59 Test Item Value Reference Range Interpretation Comments O2 Saturation (Measured) (test code = 79.8 % 99378-0) [facility], [id number] 10:49:59 Test Item Value Reference Range Interpretation Comments O2 Saturation (Measured) (test code = 79.8 % 53786-3) [facility] Center[facility], [id number] 10:49:59 Test Item Value Reference Range Interpretation Comments O2 Saturation (Measured) (test code = 79.8 % 53500-9) [facility], [id number] 10:49:59 Test Item Value Reference Range Interpretation Comments O2 Saturation (Measured) (test code = 79.8 % 76681-5) [facility], [id number] 10:49:59 Test Item Value Reference Range Interpretation Comments O2 Saturation (Measured) (test code = 79.8 % 92189-0) [facility], [id number] 10:49:59 Test Item Value Reference Range Interpretation Comments O2 Saturation (Measured) (test code = 79.8 % 67617-0) [facility] CenterOXYGEN SATURATION, [id number] 10:49:59 Test Item Value Reference Range Interpretation Comments O2 SATURATION (MEASURED) (BEAKER) 79.8 % (test code = 1455) BASIC METABOLIC [id number] 07:15:45 Test Item Value Reference Range Interpretation [...] S NOT APPLICABLE FOR DIALYSIS PATIEN TS. Inspection And Testing Supervisor ID - DBRAD, CHEST, 1 VIEW, NON [id number] 03:19:00Reason for exam:->post-opShould this be performed at the bedside?->Yes [facility] 1955 Sex: FFINAL REPORT CLINICAL INDICATION: post-op Comparison: 06/21/2021 The cardiomediastinal contours are stable. The lung volumes remain low. Central pulmonary vascular congestion and bilateral parenchymal opacities are unchanged. There is no pneumothorax. Support lines are stable. Signed: Braxton Quinteroeport Verified Date/Time: 06/22/2021 03:19:08 BASIC METABOLIC [id number] 02:00:09 Test Item Value Reference Range Interpretation [...] S NOT APPLICABLE FOR DIALYSIS PATIEN TS. Inspection And Testing Supervisor ID - [id number] 01:57:06 Test Item Value Reference Range Interpretation Comments MAGNESIUM (BEAKER) 2.5 mg/dL 1.6-2.6 Specimen slightly (test code = 627) hemolyzed Inspection And Testing Supervisor ID - [id number] 01:57:06 Test Item Value Reference Range Interpretation Comments PHOSPHORUS (BEAKER) 5.0 mg/dL 2.3-4.7 H Specimen slightly (test code = 604) hemolyzed Inspection And Testing Supervisor ID - [id number] 01:54:46 Test Item Value Reference Range Interpretation Comments PARTIAL THROMBOPLASTIN TIME 37.8 seconds 22.5-36.0 H (BEAKER) (test code = 760) PROTHROMBIN TIME/[id number] 01:53:47 Test Item Value Reference Range Interpretation Comments PROTIME (BEAKER) 16.4 seconds 11.9-14.2 H (test code = 759) INR (BEAKER) (test 1.34 See_Comment [Automat ed message] code = 370) The system IAMINTOIT generated this result transmitted ref erence range: [...] WBC 0-0 (test code = 413) POCT-GLUCOSE [id number] 21:22:08 Test Item Value Reference Range Interpretation Comments POC-GLUCOSE METER 73 mg/dL 70-110 : TESTED A T [facility] 6720 (BEAKER) (test code = YUDY WHITE [place], 1538) [address]: Inspection And Testing Supervisor/Techni kelle ID = [id number] for Rodríguez Rojas POCT-GLUCOSE [id number] 19:10:01 Test Item Value Reference Range Interpretation Comments POC-GLUCOSE METER 83 mg/dL 70-110 : TESTED A T [facility] 6720 (BEAKER) (test code = [facility], 1538) [address]: Inspection And Testing Supervisor/Techni kelle ID = [id number] for HATTIE SALAZAR BASIC METABOLIC [id number] 14:08:36 Test Item Value Reference Range Interpretation [...] S NOT APPLICABLE FOR DIALYSIS PATIEN TS. Inspection And Testing Supervisor ID - DBPOCT-GLUCOSE [id number] 13:42:11 Test Item Value Reference Range Interpretation Comments POC-GLUCOSE METER 72 mg/dL 70-110 : TESTED A T [facility] 6720 (BEAKER) (test code = [facility], 1538) [address]: Inspection And Testing Supervisor/Techni kelle ID = [id number] for Sun(contract )Katt Surgically obtained culture + gram [id number] 11:46:53 Test Item Value Reference Range Interpretation Comments Result (test code = 6463-4) No growth Gram Stain Result (test No organisms seen code = 1123) [facility] [id number] 11:46:53 Test Item Value Reference Range Interpretation Comments Result (test code = 6463-4) No growth Gram Stain Result (test No organisms seen code = 1123) [facility] [id number] 11:46:53 Test Item Value Reference Range Interpretation Comments Result (test code = 6463-4) No growth Gram Stain Result (test No organisms seen code = 1123) [facility] [id number] 11:46:53 Test Item Value Reference Range Interpretation Comments Result (test code = 6463-4) No growth Gram Stain Result (test No organisms seen code = 1123) [facility] gram [id number] 11:46:53 Test Item Value Reference Range Interpretation Comments Result (test code = 6463-4) No growth Gram Stain Result (test No organisms seen code = 1123) [facility] + gram [id number] 11:46:53 Test Item Value Reference Range Interpretation Comments Result (test code = 6463-4) No growth Gram Stain Result (test No organisms seen code = 1123) [facility] gram [id number] 11:46:53 Test Item Value Reference Range Interpretation Comments Result (test code = 6463-4) No growth Gram Stain Result (test No organisms seen code = 1123) [facility] + gram [id number] 11:46:53 Test Item Value Reference Range Interpretation Comments Result (test code = 6463-4) No growth Gram Stain Result (test No organisms seen code = 1123) [facility] gram [id number] 11:46:53 Test Item Value Reference Range Interpretation Comments Result (test code = 6463-4) No growth Gram Stain Result (test No organisms seen code = 1123) [facility] + gram [id number] 11:46:53 Test Item Value Reference Range Interpretation Comments Result (test code = 6463-4) No growth Gram Stain Result (test No organisms seen code = 1123) [facility] + gram [id number] 11:46:53 Test Item Value Reference Range Interpretation Comments Result (test code = 6463-4) No growth Gram Stain Result (test No organisms seen code = 1123) [facility] gram [id number] 11:46:53 Test Item Value Reference Range Interpretation Comments Result (test code = 6463-4) No growth Gram Stain Result (test No organisms seen code = 1123) [facility] + GRAM [id number] 11:46:53 Test Item Value Reference Range Interpretation Comments CULTURE (BEAKER) (test code No growth = 1095) GRAM STAIN RESULT (BEAKER) 1+ WBCs (test code = 1123) GRAM STAIN RESULT (BEAKER) No organisms seen (test code = 81597) RAD, CHEST, 1 VIEW, NON [id number] 06:05:00Reason for exam:->post-opShould this be performed at the bedside?->Yes [facility] 1955 Sex: FFINAL REPORT RAD, CHEST, 1 VIEW, NON DEPT INDICATION: post-op NAZ RISON: Prior day's exam FINDINGS: Portable frontal view of the chest. IMPRESSION: Support Lines: The pulmonary arterial catheter has been removed. Otherwise, stable. Lungs and pleura: Unchanged bilateral perihilar hazy lung opacities compatible with edema. No pneumothorax. Heart and mediastinum: Stable contours. Additional findings: None. Signed: [facility] Verified Date/Time: 06/21/2021 06:05:24 BASIC METABOLIC [id number] 03:54:19 Test Item Value Reference Range Interpretation [...] S NOT APPLICABLE FOR DIALYSIS PATIEN TS. Inspection And Testing Supervisor ID - [id number] 03:49:06 Test Item Value Reference Range Interpretation Comments PHOSPHORUS (BEAKER) (test code = 4.5 mg/dL 2.3-4.7 604) Inspection And Testing Supervisor ID - [id number] 03:49:05 Test Item Value Reference Range Interpretation Comments MAGNESIUM (BEAKER) (test code = 2.4 mg/dL 1.6-2.6 627) Inspection And Testing Supervisor ID - DBCBC (HEMOGRAM ONLY)2021-06-21 03:45:10 Test [...] /100 WBC 0-0 (test code = 413) [id number] 03:45:00 Test Item Value Reference Range Interpretation Comments PARTIAL THROMBOPLASTIN TIME 35.5 seconds 22.5-36.0 (BEAKER) (test code = 760) PROTHROMBIN TIME/[id number] 03:44:22 Test Item Value Reference Range Interpretation Comments PROTIME (BEAKER) 14.1 seconds 11.9-14.2 (test code = 759) INR (BEAKER) (test 1.11 See_Comment [Automat ed message] code = 370) The system IAMINTOIT generated this result transmitted ref erence range: <=5.90. The reference range was not used to int erpret this result as normal/abnormal . RECOMMENDED COUMADIN/WARFARIN INR THERAPY RANGESSTANDARD DOSE: 2.0 - 3.0 Includes: PROPHYLAXIS forvenous thrombosis, systemic embolization; TREATMENT for venous thrombosis and/or pulmonary embolus.HIGH RISK: Target INR is 2.5-3.5 for patients with mechanical heart valves.BASIC METABOLIC [id number] 18:24:15 Test Item Value Reference Range Interpretation Comments SODIUM (BEAKER) 139 meq/L 136-145 (test code = 381) POTASSIUM (BEAKER) 4.1 meq/L 3.5-5.1 (test code = 379) CHLORIDE (BEAKER) 105 meq/L 98-107 (test code = 382) CO2 (BEAKER) (test 21 meq/L 22-29 L code = 355) BLOOD UREA NITROGEN 25 mg/dL 7-21 H (BEAKER) (test code = 354) CREATININE (BEAKER) 3.60 mg/dL 0.57-1.25 H (test code = 358) GLUCOSE RANDOM 134 mg/dL 70-105 H (AKASH) (test code = 652) CALCIUM (AKASH) 8.4 mg/dL 8.4-10.2 (test code = 697) EGFR (AKASH) (test 13 mL/min/1.73 ESTIMA LEVI GFR IS code = 1092) sq m NOT ACCURATE CREATININE CLEARANCE IN PREDICTING GLOMERULAR FILTRATION RATE . ESTIMATED GFR I S NOT APPLICABLE FOR DIALYSIS PATIEN TS. Inspection And Testing Supervisor ID - PIAYA LPOCT-GLUCOSE [id number] 13:44:48 Test Item Value Reference Range Interpretation Comments POC-GLUCOSE METER 165 mg/dL 70-110 H : TESTED A T [facility] 6720 (AKASH) (test code = [facility], 1538) [address]: Inspection And Testing Supervisor/Techni kelle ID = [id number] for KOTA ARIAS SARS-CoV2/RT-PCR (Asymptomatic ONLY)2021-06-20 11:58:08 Test Item Value Reference Range Interpretation Comments SARS-COV2/RT-PCR Negative Not Detected, (test code = Negative, See 50222-7) external report for linked test SARS-COV-2 [facility] FILIPE PERFORMING LAB (test code = 44097-6) BARNDI (test code = Negative result for this [...] of the Act. Fact Sheet for Healthcare Providers:https://www.CTQuan/sites/default/f radha/product/documents/F act_Sheet_HC_Providers_L ofb_GMUH-OoR-4.pdf Fact Sheet for Healthcare Patients:https://www.BlikBook/sites/default/fi les/product/documents/Fa ct_Sheet_Patients_Lyra_S ARS-CoV-2.pdf Performing Laboratory:[facility]ARS-CoV2/RT-PCR (Asymptomatic ONLY)2021-06-20 11:58:08 Test Item Value Reference Range Interpretation Comments SARS-COV2/RT-PCR Negative Not Detected, (test code = Negative, See 63154-1) external report for linked test SARS-COV-2 [facility] FIL[facility] PERFORMING LAB (test code = 58411-7) BRANDI (test code = Negative result for [...] of the Act. Fact Sheet for Healthcare Providers:https://www.CTQuan/sites/default/f radha/product/documents/F act_Sheet_HC_Providers_L wyh_FENM-EaL-3.pdf Fact Sheet for Healthcare Patients:https://www.BlikBook/sites/default/fi les/product/documents/Fa ct_Sheet_Patients_Lyra_S ARS-CoV-2.pdf Performing Laboratory:[facility] [facility] [place] [address] [facility])2021-06-20 11:58:08 Test Item Value Reference Range Interpretation Comments SARS-COV2/RT-PCR (test Negative Not Detected, Negative, code = 8751875) See external report for linked test SARS-COV-[address] [facility] FILIPE (test code = 7617144) Negative result for this test determines that [...] 564(g) of the Act.Fact Sheet for Healthcare Providers:https://www.WoofRadar/sites/default/files/product/documents/Fact_Shee v_IT_Thgkykrqk_Zwtu_NDRV-AvG-1.pdfFact Sheet for Healthcare Patients:https://www.WoofRadar/sites/default/files/product/ documents/Xwbe_Dyyna_Nhorpvab_Wlzu_MLEP-ErI-5.pdfPerforming Laboratory:[facility], [place] [address]WRKT-QDWTPLT METER 2021-06-20 06:30:37 Test Item Value Reference Range Interpretation Comments POC-GLUCOSE METER 145 mg/dL 70-110 H : TESTED A T [facility] 6720 ([place]) (test code [facility], = 1538) [address]: Inspection And Testing Supervisor/Techni kelle ID = [id number] for Marybernardino bowen (contract), [place] RAD, CHEST, 1 VIEW, NON [id number] 06:25:00Reason for exam:->post-opShould this be performed at the bedside?->Yes [facility] : 1955 Sex: FFINAL REPORT RAD, CHEST, 1 VIEW, NON DEPT INDICATION: post-op NAZ RISON: Prior day's exam FINDINGS: Portable frontal view of the chest. IMPRESSION: Support Lines: Interval extubation. A drainage catheter overlies the upper abdomen and lower hemidiaphragm in the center. [place] tip overlies the pulmonary outflow tract. Pacer device and sternotomy wires are unchanged. Lungs and pleura: Bilateral effusions and adjacent compressive atelectasis are unchanged No significant pneumothorax. Heart and mediastinum: Normal contours. Additional findings: None. Signed: Bayron Cosme MDRepst. [facility] Verified Date/Time: 06/20/2021 06:25:51 [id number] 02:12:20 Test Item Value Reference Range Interpretation Comments PARTIAL THROMBOPLASTIN TIME 35.8 seconds 22.5-36.0 (BEAKER) (test code = 760) PROTHROMBIN TIME/[id number] 02:11:37 Test Item Value Reference Range Interpretation Comments PROTIME (BEAKER) 15.4 seconds 11.9-14.2 H (test code = 759) INR (BEAKER) (test 1.24 See_Comment [Automat ed message] code = 370) The system IAMINTOIT generated this result transmitted ref erence range: <=5.90. The reference range was not used to int erpret this result as normal/abnormal . RECOMMENDED COUMADIN/WARFARIN INR THERAPY RANGESSTANDARD DOSE: 2.0 - 3.0 Includes: PROPHYLAXIS forvenous thrombosis, systemic embolization; TREATMENT for venous thrombosis and/or pulmonary embolus.HIGH RISK: Target INR is 2.5-3.5 for patients with mechanical heart valves.BASIC METABOLIC [id number] 02:08:36 Test Item Value Reference Range Interpretation [...] S NOT APPLICABLE FOR DIALYSIS PATIEN TS. Inspection And Testing Supervisor ID - [id number] 01:57:56 Test Item Value Reference Range Interpretation Comments PHOSPHORUS (BEAKER) (test code = 4.1 mg/dL 2.3-4.7 604) Inspection And Testing Supervisor ID - [id number] 01:57:55 Test Item Value Reference Range Interpretation Comments MAGNESIUM (BEAKER) (test code = 2.2 mg/dL 1.6-2.6 627) Inspection And Testing Supervisor ID - DBCBC (HEMOGRAM ONLY)2021-06-20 01:36:09 Test [...] 0-0 (test code = 413) Blood gas, [id number] 01:27:29 Test Item Value Reference Range Interpretation [...] 28 Lab Interpretation Abnormal (test code = 72465-3) [facility] [id number] 01:27:29 Test Item Value Reference Range Interpretation [...] 28 Lab Interpretation Abnormal (test code = 29128-1) [facility], navobqzh8356-69-27 01:27:29 Test Item Value Reference Range Interpretation [...] 28 Lab Interpretation Abnormal (test code = 14705-5) [facility], [id number] 01:27:29 Test Item Value Reference Range Interpretation [...] 28 Lab Interpretation Abnormal (test code = 10827-6) [facility], ycurosxv7711-19-29 01:27:29 Test Item Value Reference Range Interpretation [...] 28 Lab Interpretation Abnormal (test code = 20383-2) [facility], grcgmkzy3347-18-29 01:27:29 Test Item Value Reference Range Interpretation [...] 28 Lab Interpretation Abnormal (test code = 77492-4) [facility], bedfvqjx6881-06-07 01:27:29 Test Item Value Reference Range Interpretation [...] 28 Lab Interpretation Abnormal (test code = 44467-6) [facility], [id number] 01:27:29 Test Item Value Reference Range Interpretation [...] 28 Lab Interpretation Abnormal (test code = 62164-2) [facility], fdumoaml8284-56-58 01:27:29 Test Item Value Reference Range Interpretation [...] 28 Lab Interpretation Abnormal (test code = 54655-4) [facility] gas, jzroegfj4699-86-77 01:27:29 Test Item Value Reference Range Interpretation [...] 28 Lab Interpretation Abnormal (test code = 93355-9) [facility] gas, lnvcrplr4237-78-59 01:27:29 Test Item Value Reference Range Interpretation [...] 28 Lab Interpretation Abnormal (test code = 55166-7) [facility], pnzjfvli8080-73-42 01:27:29 Test Item Value Reference Range Interpretation [...] 28 Lab Interpretation Abnormal (test code = 72303-9) [facility], [id number] 01:27:29 Test Item Value Reference Range Interpretation [...] 21-29 = 388) BASE EXCESS ARTERIAL (BEAKER) -2.4 mmol/L -2.0-3.0 L (test code = 387) PATIENT TEMPERATURE (BEAKER) 35.5 (test code = 1818) FIO2 (BEAKER) (test code = 1819) 28.0 Calcium, [id number] 01:26:07 Test Item Value Reference Range Interpretation Comments Calcium, Ion (test code = 1994-3) 1.17 mmol/L 1.12-1.27 pH, Blood (test code = 69859-2) 7.39 [facility], [id number] 01:26:07 Test Item Value Reference Range Interpretation Comments Calcium, Ion (test code = 1993-06) 1.17 mmol/L 1.12-1.27 pH, Blood (test code = 26604-9) 7.39 [facility], Ajvavuq6322-04-81 01:26:07 Test Item Value Reference Range Interpretation Comments Calcium, Ion (test code = 1993-06) 1.17 mmol/L 1.12-1.27 pH, Blood (test code = 45649-9) 7.39 [facility], [id number] 01:26:07 Test Item Value Reference Range Interpretation Comments Calcium, Ion (test code = 1993-06) 1.17 mmol/L 1.12-1.27 pH, Blood (test code = 00389-1) 7.39 [facility], [id number] 01:26:07 Test Item Value Reference Range Interpretation Comments Calcium, Ion (test code = 1993-06) 1.17 mmol/L 1.12-1.27 pH, Blood (test code = 13568-4) 7.39 [facility], Uyzzzxk9670-76-30 01:26:07 Test Item Value Reference Range Interpretation Comments Calcium, Ion (test code = 1993-06) 1.17 mmol/L 1.12-1.27 pH, Blood (test code = 28229-5) 7.39 [facility], [id number] 01:26:07 Test Item Value Reference Range Interpretation Comments Calcium, Ion (test code = 1993-06) 1.17 mmol/L 1.12-1.27 pH, Blood (test code = 46472-4) 7.39 [facility], [id number] 01:26:07 Test Item Value Reference Range Interpretation Comments Calcium, Ion (test code = 1993-06) 1.17 mmol/L 1.12-1.27 pH, Blood (test code = 98026-4) 7.39 [facility], Lfjqjeb6218-03-12 01:26:07 Test Item Value Reference Range Interpretation Comments Calcium, Ion (test code = 1993-06) 1.17 mmol/L 1.12-1.27 pH, Blood (test code = 03999-9) 7.39 [facility], [id number] 01:26:07 Test Item Value Reference Range Interpretation Comments Calcium, Ion (test code = 1993-06) 1.17 mmol/L 1.12-1.27 pH, Blood (test code = 52536-1) 7.39 [facility], [id number] 01:26:07 Test Item Value Reference Range Interpretation Comments Calcium, Ion (test code = 1993-06) 1.17 mmol/L 1.12-1.27 pH, Blood (test code = 40198-2) 7.39 [facility], [id number] 01:26:07 Test Item Value Reference Range Interpretation Comments Calcium, Ion (test code = 1993-06) 1.17 mmol/L 1.12-1.27 pH, Blood (test code = 35476-0) 7.39 [facility] CenterCAL[facility], [id number] 01:26:07 Test Item Value Reference Range Interpretation Comments CALCIUM IONIZED (BEAKER) (test 1.17 mmol/L 1.12-1.27 code = 698) PH, BLOOD (BEAKER) (test code = 7.39 1810) Prepare [id number] 23:55:00 Test Item Value Reference Range Interpretation Comments Unit ABO (test code = 5679819) A Pos UNIT NUMBER (test code = [id number] 934-0) Status (test code = 0408935) [facility] Blood Bank Product (test code PLATELETS = 2263) PRODUCT CODE (test code = F5469D98 933-2) [facility] CenterPrep[facility] [id number] 23:55:00 Test Item Value Reference Range Interpretation Comments Unit ABO (test code = 4832521) A Pos UNIT NUMBER (test code = [id number] 934-0) Status (test code = 4653721) [place]_TIMEINCHART Blood Bank Product (test code PLATELETS = 2263) PRODUCT CODE (test code = Y5571J64 933-2) [facility] [id number] 23:55:00 Test Item Value Reference Range Interpretation Comments Unit ABO (test code = 0346835) A Pos UNIT NUMBER (test code = [id number] 934-0) Status (test code = 5776902) [place]_TIMEINCHART Blood Bank Product (test code PLATELETS = 2263) PRODUCT CODE (test code = F9991X03 933-2) [facility] [id number] 23:55:00 Test Item Value Reference Range Interpretation Comments Unit ABO (test code = 1114676) A Pos UNIT NUMBER (test code = [id number] 934-0) Status (test code = 6405807) [place]_TIMEINCHART Blood Bank Product (test code PLATELETS = 2263) PRODUCT CODE (test code = L3793R46 933-2) [facility] [id number] 23:55:00 Test Item Value Reference Range Interpretation Comments Unit ABO (test code = 0699006) A Pos UNIT NUMBER (test code = [id number] 934-0) Status (test code = 6402728) [place]_TIMEINCHART Blood Bank Product (test code PLATELETS = 2263) PRODUCT CODE (test code = T5887O81 933-2) [facility] [id number] 23:55:00 Test Item Value Reference Range Interpretation Comments Unit ABO (test code = 0612329) A Pos UNIT NUMBER (test code = [id number] 934-0) Status (test code = 5221770) [place]_TIMEINCHART Blood Bank Product (test code PLATELETS = 2263) PRODUCT CODE (test code = G8983J85 933-2) [facility] [id number] 23:55:00 Test Item Value Reference Range Interpretation Comments Unit ABO (test code = 6742795) A Pos UNIT NUMBER (test code = [id number] 934-0) Status (test code = 7376775) [place]_TIMEINCHART Blood Bank Product (test code PLATELETS = 2263) PRODUCT CODE (test code = T7471Z21 933-2) [facility] [id number] 23:55:00 Test Item Value Reference Range Interpretation Comments Unit ABO (test code = 5846111) A Pos UNIT NUMBER (test code = [id number] 934-0) Status (test code = 6255887) [place]_TIMEINCHART Blood Bank Product (test code PLATELETS = 2263) PRODUCT CODE (test code = D2010X75 933-2) [facility] [id number] 23:55:00 Test Item Value Reference Range Interpretation Comments Unit ABO (test code = 0108750) A Pos UNIT NUMBER (test code = [id number] 934-0) Status (test code = 1986000) [place]_TIMEINCHART Blood Bank Product (test code PLATELETS = 2263) PRODUCT CODE (test code = I5328O08 933-2) [facility] [id number] 23:55:00 Test Item Value Reference Range Interpretation Comments Unit ABO (test code = 7149515) A Pos UNIT NUMBER (test code = [id number] 934-0) Status (test code = 9406720) [place]_TIMEINCHART Blood Bank Product (test code PLATELETS = 2263) PRODUCT CODE (test code = Q7496Z40 933-2) [facility] [id number] 23:55:00 Test Item Value Reference Range Interpretation Comments Unit ABO (test code = 2045053) A Pos UNIT NUMBER (test code = [id number] 934-0) Status (test code = 5730889) [place]_TIMEINCHART Blood Bank Product (test code PLATELETS = 2263) PRODUCT CODE (test code = T4490P46 933-2) [facility] [id number] 23:55:00 Test Item Value Reference Range Interpretation Comments Unit ABO (test code = 4533246) A Pos UNIT NUMBER (test code = [id number] 934-0) Status (test code = 0991487) [place]_TIMEINCHART Blood Bank Product (test code PLATELETS = 2263) PRODUCT CODE (test code = I4204B68 933-2) [facility] [id number] 23:54:00 Test Item Value Reference Range Interpretation Comments CROSSMATCH (test code = COMPATIBLE 2264) Unit ABO (test code = O Pos 7626030) UNIT NUMBER (test code = [id number] 934-0) Status (test code = RETURNED FROM ISSUE 15100613) Blood Bank Product (test RED BLOOD CELLS code = 2263) PRODUCT CODE (test code = Z0329E23 933-2) [facility] [id number] 23:54:00 Test Item Value Reference Range Interpretation Comments CROSSMATCH (test code = COMPATIBLE 2264) Unit ABO (test code = O Pos 4277272) UNIT NUMBER (test code = [id number] 934-0) Status (test code = RETURNED FROM ISSUE 15100613) Blood Bank Product (test RED BLOOD CELLS code = 2263) PRODUCT CODE (test code = L6168E68 933-2) [facility] [id number] 23:54:00 Test Item Value Reference Range Interpretation Comments CROSSMATCH (test code = COMPATIBLE 2264) Unit ABO (test code = O Pos 0690271) UNIT NUMBER (test code = [id number] 934-0) Status (test code = RETURNED FROM ISSUE 15100613) Blood Bank Product (test RED BLOOD CELLS code = 2263) PRODUCT CODE (test code = D6017S18 933-2) [facility] [id number] 23:54:00 Test Item Value Reference Range Interpretation Comments CROSSMATCH (test code = COMPATIBLE 2264) Unit ABO (test code = O Pos 0541217) UNIT NUMBER (test code = [id number] 934-0) Status (test code = RETURNED FROM ISSUE 15100613) Blood Bank Product (test RED BLOOD CELLS code = 2263) PRODUCT CODE (test code = J1945A01 933-2) [facility] [id number] 23:54:00 Test Item Value Reference Range Interpretation Comments CROSSMATCH (test code = COMPATIBLE 2264) Unit ABO (test code = O Pos 4025265) UNIT NUMBER (test code = [id number] 934-0) Status (test code = RETURNED FROM ISSUE 15100613) Blood Bank Product (test RED BLOOD CELLS code = 2263) PRODUCT CODE (test code = R7495W08 933-2) [facility] [id number] 23:54:00 Test Item Value Reference Range Interpretation Comments CROSSMATCH (test code = COMPATIBLE 2264) Unit ABO (test code = O Pos 2142045) UNIT NUMBER (test code = [id number] 934-0) Status (test code = RETURNED FROM ISSUE 15100613) Blood Bank Product (test RED BLOOD CELLS code = 2263) PRODUCT CODE (test code = U8710P34 933-2) [facility] [id number] 23:54:00 Test Item Value Reference Range Interpretation Comments CROSSMATCH (test code = COMPATIBLE 2264) Unit ABO (test code = O Pos 6174609) UNIT NUMBER (test code = [id number] 934-0) Status (test code = RETURNED FROM ISSUE 15100613) Blood Bank Product (test RED BLOOD CELLS code = 2263) PRODUCT CODE (test code = N1880D02 933-2) [facility] [id number] 23:54:00 Test Item Value Reference Range Interpretation Comments CROSSMATCH (test code = COMPATIBLE 2264) Unit ABO (test code = O Pos 9667175) UNIT NUMBER (test code = [id number] 934-0) Status (test code = RETURNED FROM ISSUE 15100613) Blood Bank Product (test RED BLOOD CELLS code = 2263) PRODUCT CODE (test code = U6872W90 933-2) [facility] [id number] 23:54:00 Test Item Value Reference Range Interpretation Comments CROSSMATCH (test code = COMPATIBLE 2264) Unit ABO (test code = O Pos 6759686) UNIT NUMBER (test code = [id number] 934-0) Status (test code = RETURNED FROM ISSUE 15100613) Blood Bank Product (test RED BLOOD CELLS code = 2263) PRODUCT CODE (test code = R3576C60 933-2) [facility] [id number] 23:54:00 Test Item Value Reference Range Interpretation Comments CROSSMATCH (test code = COMPATIBLE 2264) Unit ABO (test code = O Pos 1100327) UNIT NUMBER (test code = [id number] 934-0) Status (test code = RETURNED FROM ISSUE 3134077) Blood Bank Product (test RED BLOOD CELLS code = 2263) PRODUCT CODE (test code = O2598K25 933-2) [facility] [facility] [id number] 23:54:00 Test Item Value Reference Range Interpretation Comments CROSSMATCH (test code = COMPATIBLE 2264) Unit ABO (test code = O Pos 0510416) UNIT NUMBER (test code = [id number] 934-0) Status (test code = RETURNED FROM ISSUE [id number]) Blood Bank Product (test RED BLOOD CELLS code = 2263) PRODUCT CODE (test code = [id number] 933-2) [facility] [id number] 23:54:00 Test Item Value Reference Range Interpretation Comments CROSSMATCH (test code = COMPATIBLE 2264) Unit ABO (test code = O Pos 9458005) UNIT NUMBER (test code = [id number] 934-0) Status (test code = RETURNED FROM ISSUE 5185945) Blood Bank Product (test RED BLOOD CELLS code = 2263) PRODUCT CODE (test code = [id number] 933-2) [facility] [id number] 22:04:29 Test Item Value Reference Range Interpretation [...] S NOT APPLICABLE FOR DIALYSIS PATIEN TS. Inspection And Testing Supervisor ID - [id number] 22:03:41 Test Item Value Reference Range Interpretation Comments PHOSPHORUS (BEAKER) (test code = 4.3 mg/dL 2.3-4.7 604) Inspection And Testing Supervisor ID - XSWMJPEIMOB9558-24-90 22:03:40 Test Item Value Reference Range Interpretation Comments MAGNESIUM (BEAKER) (test code = 2.2 mg/dL 1.6-2.6 627) Inspection And Testing Supervisor ID - DBpH, fvamiicm6686-72-38 21:40:14 Test Item Value Reference Range Interpretation Comments pH, Arterial (test code = 2744-1) 7.37 7.35-7.45 Lab Interpretation (test code = Normal 70558-8) [facility] [id number] 21:40:14 Test Item Value Reference Range Interpretation Comments pH, Arterial (test code = 2744-1) 7.37 7.35-7.45 Lab Interpretation (test code = Normal 11425-1) [facility] [id number] 21:40:14 Test Item Value Reference Range Interpretation Comments pH, Arterial (test code = 2744-1) 7.37 7.35-7.45 Lab Interpretation (test code = Normal 58719-6) [facility] turcbndt2085-63-03 21:40:14 Test Item Value Reference Range Interpretation Comments pH, Arterial (test code = 2744-1) 7.37 7.35-7.45 Lab Interpretation (test code = Normal 37913-4) [facility] pdmicppt8814-03-23 21:40:14 Test Item Value Reference Range Interpretation Comments pH, Arterial (test code = 2744-1) 7.37 7.35-7.45 Lab Interpretation (test code = Normal 78168-0) [facility] [id number] 21:40:14 Test Item Value Reference Range Interpretation Comments pH, Arterial (test code = 2744-1) 7.37 7.35-7.45 Lab Interpretation (test code = Normal 94656-6) [facility]2022-03-18 21:40:14 Test Item Value Reference Range Interpretation Comments pH, Arterial (test code = 2744-1) 7.37 7.35-7.45 Lab Interpretation (test code = Normal 39390-6) [facility]2022-03-18 21:40:14 Test Item Value Reference Range Interpretation Comments pH, Arterial (test code = 2744-1) 7.37 7.35-7.45 Lab Interpretation (test code = Normal 82674-1) [facility]2022-03-18 21:40:14 Test Item Value Reference Range Interpretation Comments pH, Arterial (test code = 2744-1) 7.37 7.35-7.45 Lab Interpretation (test code = Normal 65924-9) [facility]2022-03-18 21:40:14 Test Item Value Reference Range Interpretation Comments pH, Arterial (test code = 2744-1) 7.37 7.35-7.45 Lab Interpretation (test code = Normal 50109-4) [facility]2022-03-18 21:40:14 Test Item Value Reference Range Interpretation Comments pH, Arterial (test code = 2744-1) 7.37 7.35-7.45 Lab Interpretation (test code = Normal 83034-6) [facility]2022-03-18 21:40:14 Test Item Value Reference Range Interpretation Comments pH, Arterial (test code = 2744-1) 7.37 7.35-7.45 Lab Interpretation (test code = Normal 24804-9) [facility]2022-03-18 21:40:14 Test Item Value Reference Range Interpretation Comments PH ARTERIAL (BEAKER) (test code = 383) 7.37 7.35-7.45 POCT-GLUCOSE [id number] 18:07:04 Test Item Value Reference Range Interpretation Comments POC-GLUCOSE METER 208 mg/dL 70-110 H : TESTED A T [facility] 6720 (BEAKER) (test code = [place]UD[place], 1538) [address]: Inspection And Testing Supervisor/Techni kelle ID = [id number] for Chilo Mccarty BLOOD GAS, [id number] 12:45:46 Test Item Value Reference Range Interpretation [...] (test code = 1819) 36.0 BLOOD GAS, [id number] 11:23:57 Test Item Value Reference Range Interpretation [...] FIO2 (BEAKER) (test code = 1819) 40.0 [id number] 09:37:11 Test Item Value Reference Range Interpretation Comments Scan Result (test code = See scanned report [id number]) BRANDI (test code = BRANDI) See scanned report [place] 95174022-03-18 09:37:11 Test Item Value Reference Range Interpretation Comments Scan Result (test code = See scanned report [id number]) BRANDI (test code = BRANDI) See scanned report [address]03-18 09:37:11 Test Item Value Reference Range Interpretation Comments Scan Result (test code = See scanned report [id number]) RBANDI (test code = BRANDI) See scanned report [address]03-18 09:37:11 Test Item Value Reference Range Interpretation Comments Scan Result (test code = See scanned report [id number]) BRANDI (test code = BRANDI) See scanned report [address]03-18 09:37:11 Test Item Value Reference Range Interpretation Comments Scan Result (test code = See scanned report [id number]) BRANDI (test code = BRANDI) See scanned report [address]03-18 09:37:11 Test Item Value Reference Range Interpretation Comments Scan Result (test code = See scanned report [id number]) BRANDI (test code = BRANDI) See scanned report [address]03-18 09:37:11 Test Item Value Reference Range Interpretation Comments Scan Result (test code = See scanned report [id number]) BRANDI (test code = BRANDI) See scanned report [address]03-18 09:37:11 Test Item Value Reference Range Interpretation Comments Scan Result (test code = See scanned report [id number]) BRANDI (test code = BRANDI) See scanned report [place] [address]-03-18 09:37:11 Test Item Value Reference Range Interpretation Comments Scan Result (test code = See scanned report [id number]) BRANDI (test code = BRANDI) See scanned report [address]03-18 09:37:11 Test Item Value Reference Range Interpretation Comments Scan Result (test code = See scanned report [id number]) BRANDI (test code = BRANDI) See scanned report [address]03-18 09:37:11 Test Item Value Reference Range Interpretation Comments Scan Result (test code = See scanned report [id number]) BRANDI (test code = BRANDI) See scanned report [address]03-18 09:37:11 Test Item Value Reference Range Interpretation Comments Scan Result (test code = See scanned report [id number]) BRANDI (test code = BRANDI) See scanned report [facility] [id number] 09:37:11 Test Item Value Reference Range Interpretation Comments SCAN RESULT (test code = See scanned report [id number]) See scanned reportPOCT-GLUCOSE [id number] 08:52:16 Test Item Value Reference Range Interpretation Comments POC-GLUCOSE METER 165 mg/dL 70-110 H : TESTED A T [facility] 6720 (BEAKER) (test code = [place], 1538) [address]: Inspection And Testing Supervisor/Techni kelle ID = [id number] for Chilo Mccarty RAD, CHEST, 1 VIEW, NON [id number] 04:10:00Reason for exam:->post-opShould this be performed at the bedside?->Yes [facility] 1955 Sex: FFINAL REPORT RAD, CHEST, 1 VIEW, NON DEPT INDICATION: post-op NAZ RISON: Prior day's exam FINDINGS: Portable frontal view of the chest. IMPRESSION: Support Lines: Stable Lungs and pleura: Unchanged central venous congestion. No new consolidation or effusion. No pneumothorax. Heart and mediastinum: Stable contours. Additional findings: None. Signed: Andrew Cary Verified Date/Time: 06/19/2021 04:10:04 BASIC METABOLIC [id number] 03:27:20 Test Item Value Reference Range Interpretation [...] S NOT APPLICABLE FOR DIALYSIS PATIEN TS. Inspection And Testing Supervisor ID - RAKAN [id number] 03:26:39 Test Item Value Reference Range Interpretation Comments MAGNESIUM (BEAKER) (test code = 2.4 mg/dL 1.6-2.6 627) Inspection And Testing Supervisor ID - RAKAN AKUYPTONXWI1359-67-43 03:26:39 Test Item Value Reference Range Interpretation Comments PHOSPHORUS (BEAKER) (test code = 4.8 mg/dL 2.3-4.7 H 604) Inspection And Testing Supervisor ID - RAKAN CVRNE3798-23-63 03:02:29 Test Item Value Reference Range Interpretation Comments PARTIAL THROMBOPLASTIN TIME 35.4 seconds 22.5-36.0 (BEAKER) (test code = 760) PROTHROMBIN TIME/[id number] 03:01:50 Test Item Value Reference Range Interpretation Comments PROTIME (BEAKER) 16.0 seconds 11.9-14.2 H (test code = 759) INR (BEAKER) (test 1.31 See_Comment [Automat ed message] code = 370) The system IAMINTOIT generated this result transmitted ref erence range: [...] 0-0 (test code = 413) OXYGEN SATURATION, [id number] 02:28:43 Test Item Value Reference Range Interpretation Comments O2 SATURATION (MEASURED) (BEAKER) 79.3 % (test code = 1455) BLOOD GAS, [id number] 02:25:53 Test Item Value Reference Range Interpretation [...] (BEAKER) (test code = 1819) 40.0 POCT-GLUCOSE [id number] 00:06:42 Test Item Value Reference Range Interpretation Comments POC-GLUCOSE METER 88 mg/dL 70-110 : TESTED A T [facility] 6720 (BEAKER) (test code = [facility], 1538) [address]: Inspection And Testing Supervisor/Techni kelle ID = [id number] for JUGU ILON (V), ERICK POCT-GLUCOSE [id number] 23:14:53 Test Item Value Reference Range Interpretation Comments POC-GLUCOSE METER 91 mg/dL 70-110 : TESTED A T [facility] 6720 (BEAKER) (test code = [facility], 1538) [address]: Inspection And Testing Supervisor/Techni kelle ID = [id number] for JUGU ILON (V), ERICK POCT-GLUCOSE [id number] 21:30:27 Test Item Value Reference Range Interpretation Comments POC-GLUCOSE METER 128 mg/dL 70-110 H : TESTED A T [facility] 6720 (BEAKER) (test code = [facility], 1538) [address]: Inspection And Testing Supervisor/Techni kelle ID = [id number] for JU GUILON (V), ERICK POCT-GLUCOSE [id number] 19:05:18 Test Item Value Reference Range Interpretation Comments POC-GLUCOSE METER 165 mg/dL 70-110 H : TESTED A T [facility] 6720 (BEAKER) (test code = [facility], 1538) [address]: Inspection And Testing Supervisor/Techni kelle ID = [id number] for GABRIEL BERUMEN BASIC METABOLIC [id number] 18:47:16 Test Item Value Reference Range Interpretation [...] S NOT APPLICABLE FOR DIALYSIS PATIEN TS. Inspection And Testing Supervisor ID - HIEN [id number] 18:44:55 Test Item Value Reference Range Interpretation Comments MAGNESIUM (BEAKER) (test code = 2.5 mg/dL 1.6-2.6 627) Inspection And Testing Supervisor ID - HIEN [id number] 18:44:55 Test Item Value Reference Range Interpretation Comments PHOSPHORUS (BEAKER) (test code = 4.7 mg/dL 2.3-4.7 604) Inspection And Testing Supervisor ID - HIEN MBLOOD GAS, [id number] 18:43:01 Test Item Value Reference Range Interpretation [...] (test code = 1819) 60.0 OXYGEN SATURATION, [id number] 18:40:36 Test Item Value Reference Range Interpretation Comments O2 SATURATION (MEASURED) (BEAKER) 90.5 % (test code = 1455) Lactic Acid, [id number] 18:40:35 Test Item Value Reference Range Interpretation Comments Lactate, Art (test code = 2.1 mmol/L 0.5-2.2 2874) BRANDI (test code = BRANDI) Inspection And Testing Supervisor ID - HIEN Lab Interpretation (test Normal code = 62545-9) [facility], [id number] 18:40:35 Test Item Value Reference Range Interpretation Comments Lactate, Art (test code = 2.1 mmol/L 0.5-2.2 2874) BRANDI (test code = BRANDI) Inspection And Testing Supervisor ID - [facility] Lab Interpretation (test Normal code = 08277-4) [facility] CenterL[facility], [id number] 18:40:35 Test Item Value Reference Range Interpretation Comments Lactate, Art (test code = 2.1 mmol/L 0.5-2.2 2874) BRANDI (test code = BRANDI) Inspection And Testing Supervisor ID - [facility] Lab Interpretation (test Normal code = 74218-1) [facility], [id number] 18:40:35 Test Item Value Reference Range Interpretation Comments Lactate, Art (test code = 2.1 mmol/L 0.5-2.2 2874) BRANDI (test code = BRANDI) Inspection And Testing Supervisor ID - [facility] [facility] Lab Interpretation (test Normal code = 93057-6) [facility] CenterL[facility], [id number] 18:40:35 Test Item Value Reference Range Interpretation Comments Lactate, Art (test code = 2.1 mmol/L 0.5-2.2 2874) BRANDI (test code = BRANDI) Inspection And Testing Supervisor ID - [facility] [facility] Lab Interpretation (test Normal code = 27326-3) [facility] CenterL[facility], [id number] 18:40:35 Test Item Value Reference Range Interpretation Comments Lactate, Art (test code = 2.1 mmol/L 0.5-2.2 2874) BRANDI (test code = BRANDI) Inspection And Testing Supervisor ID - HIEN Lab Interpretation (test Normal code = 20978-6) [facility] CenterL[facility], [id number] 18:40:35 Test Item Value Reference Range Interpretation Comments Lactate, Art (test code = 2.1 mmol/L 0.5-2.2 2874) BRANDI (test code = BRANDI) Inspection And Testing Supervisor ID - HIEN M Lab Interpretation (test Normal code = 39182-3) [facility] CenterL[facility], [id number] 18:40:35 Test Item Value Reference Range Interpretation Comments Lactate, Art (test code = 2.1 mmol/L 0.5-2.2 2874) BRANDI (test code = BRANDI) Inspection And Testing Supervisor ID - HIEN M Lab Interpretation (test Normal code = 30400-8) [facility] CenterL[facility], [id number] 18:40:35 Test Item Value Reference Range Interpretation Comments Lactate, Art (test code = 2.1 mmol/L 0.5-2.2 2874) BRANDI (test code = BRANDI) Inspection And Testing Supervisor ID - HIEN M Lab Interpretation (test Normal code = 77998-4) [facility] CenterL[facility], Iavttibw3705-56-07 18:40:35 Test Item Value Reference Range Interpretation Comments Lactate, Art (test code = 2.1 mmol/L 0.5-2.2 2874) BRANDI (test code = BRANDI) Inspection And Testing Supervisor ID - HIEN M Lab Interpretation (test Normal code = 57036-2) [facility] CenterL[facility], [id number] 18:40:35 Test Item Value Reference Range Interpretation Comments Lactate, Art (test code = 2.1 mmol/L 0.5-2.2 2874) BRANDI (test code = BRANDI) Inspection And Testing Supervisor ID - HIEN M Lab Interpretation (test Normal code = 69384-6) [facility] CenterL[facility], [id number] 18:40:35 Test Item Value Reference Range Interpretation Comments Lactate, Art (test code = 2.1 mmol/L 0.5-2.2 2874) BRANDI (test code = BRANDI) Inspection And Testing Supervisor ID - HIEN M Lab Interpretation (test Normal code = 19171-2) [facility] CenterLACTIC ACID, [id number] 18:40:35 Test Item Value Reference Range Interpretation Comments LACTATE BLOOD ARTERIAL (2) 2.1 mmol/L 0.5-2.2 (BEAKER) (test code = 2874) Inspection And Testing Supervisor ID - HIEN [id number] 18:38:33 Test Item Value Reference Range Interpretation Comments PARTIAL THROMBOPLASTIN TIME 37.2 seconds 22.5-36.0 H (BEAKER) (test code = 760) PROTHROMBIN TIME/[id number] 18:37:33 Test Item Value Reference Range Interpretation Comments PROTIME (BEAKER) 16.6 seconds 11.9-14.2 H (test code = 759) INR (BEAKER) (test 1.37 See_Comment [Automat ed message] code = 370) The system IAMINTOIT generated this result transmitted ref erence range: [...] 0-0 (test code = 413) HGB/HCT (H&H)-Stat [id number] 16:13:19 Test Item Value Reference Range Interpretation Comments Hemoglobin (test code = 10.6 See_Comment L [Au tomated message] 786-4) The system IAMINTOIT generated this result transmitted ref erence range: 12.0 - 1 5.0 GM/DL. The refe rence range was not u sed to interpret this result as normal/abnor mal. Hematocrit (test code = 31.0 % 36.0-45.0 L 4544-3) Lab Interpretation (test Abnormal code = 29768-3) [facility]Stat [id number] 16:13:19 Test Item Value Reference Range Interpretation Comments Hemoglobin (test code = 10.6 See_Comment L [Au tomated message] 786-4) The system IAMINTOIT generated this result transmitted ref erence range: 12.0 - 1 5.0 GM/DL. The refe rence range was not u sed to interpret this result as normal/abnor mal. Hematocrit (test code = 31.0 % 36.0-45.0 L 4544-3) Lab Interpretation (test Abnormal code = 76613-1) [facility]Stat [id number] 16:13:19 Test Item Value Reference Range Interpretation Comments Hemoglobin (test code = 10.6 See_Comment L [Au tomated message] 786-4) The system IAMINTOIT generated this result transmitted ref erence range: 12.0 - 1 5.0 GM/DL. The refe rence range was not u sed to interpret this result as normal/abnor mal. Hematocrit (test code = 31.0 % 36.0-45.0 L 4544-3) Lab Interpretation (test Abnormal code = 98894-7) [facility] ([facility]Stat [id number] 16:13:19 Test Item Value Reference Range Interpretation Comments Hemoglobin (test code = 10.6 See_Comment L [Au tomated message] 786-4) The system IAMINTOIT generated this result transmitted ref erence range: 12.0 - 1 5.0 GM/DL. The refe rence range was not u sed to interpret this result as normal/abnor mal. Hematocrit (test code = 31.0 % 36.0-45.0 L 4544-3) Lab Interpretation (test Abnormal code = 23276-7) [facility] ([facility])-Stat [id number] 16:13:19 Test Item Value Reference Range Interpretation Comments Hemoglobin (test code = 10.6 See_Comment L [Au tomated message] 786-4) The system IAMINTOIT generated this result transmitted ref erence range: 12.0 - 1 5.0 GM/DL. The refe rence range was not u sed to interpret this result as normal/abnor mal. Hematocrit (test code = 31.0 % 36.0-45.0 L 4544-3) Lab Interpretation (test Abnormal code = 01197-7) [facility]Stat [id number] 16:13:19 Test Item Value Reference Range Interpretation Comments Hemoglobin (test code = 10.6 See_Comment L [Au tomated message] 786-4) The system IAMINTOIT generated this result transmitted ref erence range: 12.0 - 1 5.0 GM/DL. The refe rence range was not u sed to interpret this result as normal/abnor mal. Hematocrit (test code = 31.0 % 36.0-45.0 L 4544-3) Lab Interpretation (test Abnormal code = 48154-0) [facility] ([facility]Stat [id number] 16:13:19 Test Item Value Reference Range Interpretation Comments Hemoglobin (test code = 10.6 See_Comment L [Au tomated message] 786-4) The system IAMINTOIT generated this result transmitted ref erence range: 12.0 - 1 5.0 GM/DL. The refe rence range was not u sed to interpret this result as normal/abnor mal. Hematocrit (test code = 31.0 % 36.0-45.0 L 4544-3) Lab Interpretation (test Abnormal code = 01683-1) [facility] ([facility]Stat [id number] 16:13:19 Test Item Value Reference Range Interpretation Comments Hemoglobin (test code = 10.6 See_Comment L [Au tomated message] 786-4) The system IAMINTOIT generated this result transmitted ref erence range: 12.0 - 1 5.0 GM/DL. The refe rence range was not u sed to interpret this result as normal/abnor mal. Hematocrit (test code = 31.0 % 36.0-45.0 L 4544-3) Lab Interpretation (test Abnormal code = 47093-7) [facility] ([facility])-Stat [id number] 16:13:19 Test Item Value Reference Range Interpretation Comments Hemoglobin (test code = 10.6 See_Comment L [Au tomated message] 786-4) The system IAMINTOIT generated this result transmitted ref erence range: 12.0 - 1 5.0 GM/DL. The refe rence range was not u sed to interpret this result as normal/abnor mal. Hematocrit (test code = 31.0 % 36.0-45.0 L 4544-3) Lab Interpretation (test Abnormal code = 06148-9) [facility]Stat [id number] 16:13:19 Test Item Value Reference Range Interpretation Comments Hemoglobin (test code = 10.6 See_Comment L [Au tomated message] 786-4) The system IAMINTOIT generated this result transmitted ref erence range: 12.0 - 1 5.0 GM/DL. The refe rence range was not u sed to interpret this result as normal/abnor mal. Hematocrit (test code = 31.0 % 36.0-45.0 L 4544-3) Lab Interpretation (test Abnormal code = 94590-4) [facility]Stat [id number] 16:13:19 Test Item Value Reference Range Interpretation Comments Hemoglobin (test code = 10.6 See_Comment L [Au tomated message] 786-4) The system IAMINTOIT generated this result transmitted ref erence range: 12.0 - 1 5.0 GM/DL. The refe rence range was not u sed to interpret this result as normal/abnor mal. Hematocrit (test code = 31.0 % 36.0-45.0 L 4544-3) Lab Interpretation (test Abnormal code = 21469-8) [facility]Stat [id number] 16:13:19 Test Item Value Reference Range Interpretation Comments Hemoglobin (test code = 10.6 See_Comment L [Au tomated message] 786-4) The system IAMINTOIT generated this result transmitted ref erence range: 12.0 - 1 5.0 GM/DL. The refe rence range was not u sed to interpret this result as normal/abnor mal. Hematocrit (test code = 31.0 % 36.0-45.0 L 4544-3) Lab Interpretation (test Abnormal code = 63223-3) [facility] ([facility] - STAT [id number] 16:13:19 Test Item Value Reference Range Interpretation Comments HEMOGLOBIN (BEAKER) (test code = 10.6 GM/DL 12.0-15.0 L 410) HEMATOCRIT (BEAKER) (test code = 31.0 % 36.0-45.0 L 411) Glucose-Stat [id number] 16:13:18 Test Item Value Reference Range Interpretation Comments Glucose (test code = 2345-7) 205 mg/dL 70-110 H Lab Interpretation (test code = Abnormal 90721-6) [facility] [id number] 16:13:18 Test Item Value Reference Range Interpretation Comments Sodium (test code = 2951-2) 134 meq/L 136-145 L Lab Interpretation (test code = Abnormal 00593-8) [facility] CenterGlucose[facility]Stat [id number] 16:13:18 Test Item Value Reference Range Interpretation Comments Glucose (test code = 2345-7) 205 mg/dL 70-110 H Lab Interpretation (test code = Abnormal 19826-4) [facility] [id number] 16:13:18 Test Item Value Reference Range Interpretation Comments Sodium (test code = 2951-2) 134 meq/L 136-145 L Lab Interpretation (test code = Abnormal 95535-7) [facility] CenterGlucose[facility]Stat [id number] 16:13:18 Test Item Value Reference Range Interpretation Comments Glucose (test code = 2345-7) 205 mg/dL 70-110 H Lab Interpretation (test code = Abnormal 08275-9) [facility] [id number] 16:13:18 Test Item Value Reference Range Interpretation Comments Sodium (test code = 2951-2) 134 meq/L 136-145 L Lab Interpretation (test code = Abnormal 02610-4) [facility] CenterGlucose-Stat [id number] 16:13:18 Test Item Value Reference Range Interpretation Comments Glucose (test code = 2345-7) 205 mg/dL 70-110 H Lab Interpretation (test code = Abnormal 63729-1) [facility] [id number] 16:13:18 Test Item Value Reference Range Interpretation Comments Sodium (test code = 2951-2) 134 meq/L 136-145 L Lab Interpretation (test code = Abnormal 31332-2) [facility] CenterGlucose-Stat [id number] 16:13:18 Test Item Value Reference Range Interpretation Comments Glucose (test code = 2345-7) 205 mg/dL 70-110 H Lab Interpretation (test code = Abnormal 49313-7) [facility] [id number] 16:13:18 Test Item Value Reference Range Interpretation Comments Sodium (test code = 2951-2) 134 meq/L 136-145 L Lab Interpretation (test code = Abnormal 12608-7) [facility] CenterGlucose[facility]Stat [id number] 16:13:18 Test Item Value Reference Range Interpretation Comments Glucose (test code = 2345-7) 205 mg/dL 70-110 H Lab Interpretation (test code = Abnormal 06890-9) [facility] [id number] 16:13:18 Test Item Value Reference Range Interpretation Comments Sodium (test code = 2951-2) 134 meq/L 136-145 L Lab Interpretation (test code = Abnormal 39266-2) [facility] CenterGlucose-Stat [id number] 16:13:18 Test Item Value Reference Range Interpretation Comments Glucose (test code = 2345-7) 205 mg/dL 70-110 H Lab Interpretation (test code = Abnormal 08920-7) [facility] [id number] 16:13:18 Test Item Value Reference Range Interpretation Comments Sodium (test code = 2951-2) 134 meq/L 136-145 L Lab Interpretation (test code = Abnormal 46999-4) [facility] Emy9932-71-75 16:13:18 Test Item Value Reference Range Interpretation Comments Glucose (test code = 2345-7) 205 mg/dL 70-110 H Lab Interpretation (test code = Abnormal 99382-0) [facility] [id number] 16:13:18 Test Item Value Reference Range Interpretation Comments Sodium (test code = 2951-2) 134 meq/L 136-145 L Lab Interpretation (test code = Abnormal 47936-8) [facility] [id number] 16:13:18 Test Item Value Reference Range Interpretation Comments Glucose (test code = 2345-7) 205 mg/dL 70-110 H Lab Interpretation (test code = Abnormal 91796-6) [facility] [id number] 16:13:18 Test Item Value Reference Range Interpretation Comments Sodium (test code = 2951-2) 134 meq/L 136-145 L Lab Interpretation (test code = Abnormal 08403-3) [facility] [id number] 16:13:18 Test Item Value Reference Range Interpretation Comments Glucose (test code = 2345-7) 205 mg/dL 70-110 H Lab Interpretation (test code = Abnormal 66067-4) [facility] [id number] 16:13:18 Test Item Value Reference Range Interpretation Comments Sodium (test code = 2951-2) 134 meq/L 136-145 L Lab Interpretation (test code = Abnormal 52633-6) [facility] [id number] 16:13:18 Test Item Value Reference Range Interpretation Comments Glucose (test code = 2345-7) 205 mg/dL 70-110 H Lab Interpretation (test code = Abnormal 20457-4) [facility] [id number] 16:13:18 Test Item Value Reference Range Interpretation Comments Sodium (test code = 2951-2) 134 meq/L 136-145 L Lab Interpretation (test code = Abnormal 96880-1) [facility] [id number] 16:13:18 Test Item Value Reference Range Interpretation Comments Glucose (test code = 2345-7) 205 mg/dL 70-110 H Lab Interpretation (test code = Abnormal 33178-0) [facility] [id number] 16:13:18 Test Item Value Reference Range Interpretation Comments Sodium (test code = 2951-2) 134 meq/L 136-145 L Lab Interpretation (test code = Abnormal 55196-7) [facility] [id number] 16:13:18 Test Item Value Reference Range Interpretation Comments SODIUM (BEAKER) (test code = 381) 134 meq/L 136-145 L GLUCOSE-STAT [id number] 16:13:18 Test Item Value Reference Range Interpretation Comments GLUCOSE RANDOM (BEAKER) (test code 205 mg/dL 70-110 H = 652) BLOOD GAS, [id number] 16:13:17 Test Item Value Reference Range Interpretation [...] (BEAKER) (test code = 1819) 60.0 Potassium-Stat Eoy9828-06-28 16:11:46 Test Item Value Reference Range Interpretation Comments Potassium (test code = 2823-3) 4.5 meq/L 3.6-5.5 Lab Interpretation (test code = Normal 12011-7) [facility] Gpv2790[facility]05 16:11:46 Test Item Value Reference Range Interpretation Comments Potassium (test code = 2823-3) 4.5 meq/L 3.6-5.5 Lab Interpretation (test code = Normal 17673-9) [facility] [id number] 16:11:46 Test Item Value Reference Range Interpretation Comments Potassium (test code = 2823-3) 4.5 meq/L 3.6-5.5 Lab Interpretation (test code = Normal 42333-4) [facility] [id number] 16:11:46 Test Item Value Reference Range Interpretation Comments Potassium (test code = 2823-3) 4.5 meq/L 3.6-5.5 Lab Interpretation (test code = Normal 85831-2) [facility] Kyl6776-56-20 16:11:46 Test Item Value Reference Range Interpretation Comments Potassium (test code = 2823-3) 4.5 meq/L 3.6-5.5 Lab Interpretation (test code = Normal 98516-3) [facility] Odq6130-94-70 16:11:46 Test Item Value Reference Range Interpretation Comments Potassium (test code = 2823-3) 4.5 meq/L 3.6-5.5 Lab Interpretation (test code = Normal 59213-9) [facility] Zzr2031-90-30 16:11:46 Test Item Value Reference Range Interpretation Comments Potassium (test code = 2823-3) 4.5 meq/L 3.6-5.5 Lab Interpretation (test code = Normal 85659-5) [facility] [id number] 16:11:46 Test Item Value Reference Range Interpretation Comments Potassium (test code = 2823-3) 4.5 meq/L 3.6-5.5 Lab Interpretation (test code = Normal 20056-7) [facility] [id number] 16:11:46 Test Item Value Reference Range Interpretation Comments Potassium (test code = 2823-3) 4.5 meq/L 3.6-5.5 Lab Interpretation (test code = Normal 00868-6) [facility] Cfz5440-58-31 16:11:46 Test Item Value Reference Range Interpretation Comments Potassium (test code = 2823-3) 4.5 meq/L 3.6-5.5 Lab Interpretation (test code = Normal 29858-2) [facility] [id number] 16:11:46 Test Item Value Reference Range Interpretation Comments Potassium (test code = 2823-3) 4.5 meq/L 3.6-5.5 Lab Interpretation (test code = Normal 39316-3) [facility] Hhe5218-55-93 16:11:46 Test Item Value Reference Range Interpretation Comments Potassium (test code = 2823-3) 4.5 meq/L 3.6-5.5 Lab Interpretation (test code = Normal 40202-2) [facility] [id number] 16:11:46 Test Item Value Reference Range Interpretation Comments POTASSIUM (BEAKER) (test code = 4.5 meq/L 3.6-5.5 379) CALCIUM, [id number] 16:11:08 Test Item Value Reference Range Interpretation Comments CALCIUM IONIZED (BEAKER) (test 1.16 mmol/L 1.12-1.27 code = 698) PH, BLOOD (BEAKER) (test code = 7.44 1810) Manual Inrjqpmwdiqp0522-52-31 16:00:23 Test Item Value Reference Range Interpretation [...] Poikilocytes (test code = 1+ few 966) Frederick Cells (test code = 1+ few 474) Artifact (test code = Present 3432) Platelet Conc (test code Decreased = 3438) BRANDI (test code = BRANDI) Inspection And Testing Supervisor ID - Liza Lu comments: Slide comments: Lab Interpretation (test Abnormal code = 65653-9) [facility] Ffmetfgegdzo8607-52-94 16:00:23 Test Item Value Reference Range Interpretation [...] Poikilocytes (test code = 1+ few 966) Frederick Cells (test code = 1+ few 474) Artifact (test code = Present 3432) Platelet Conc (test code Decreased = 3438) BRANDI (test code = BRANDI) Inspection And Testing Supervisor ID - Liza Lu comments: Slide comments: Lab Interpretation (test Abnormal code = 70681-4) [facility] Rlhjaiejzmtw7364-95-53 16:00:23 Test Item Value Reference Range Interpretation [...] = 3438) BRANDI (test code = BRANDI) Inspection And Testing Supervisor ID - Liza Tabitha comments: Slide comments: Lab Interpretation (test Abnormal code = 12754-6) [facility] Glzljndkznur9013-92-47 16:00:23 Test Item Value Reference Range Interpretation [...] = 3438) BRANDI (test code = BRANDI) Inspection And Testing Supervisor ID - Liza Lu comments: Slide comments: Lab Interpretation (test Abnormal code = 48403-9) [facility] Irppgcrbqipp9694-03-98 16:00:23 Test Item Value Reference Range Interpretation [...] = 3438) BRANDI (test code = BRANDI) Inspection And Testing Supervisor ID - Liza Lu comments: Slide comments: Lab Interpretation (test Abnormal code = 14035-6) [facility] Ezqqnonfumwu8554-04-72 16:00:23 Test Item Value Reference Range Interpretation [...] Poikilocytes (test code = 1+ few 966) Frederick Cells (test code = 1+ few 474) Artifact (test code = Present 3432) Platelet Conc (test code Decreased = 3438) BRANDI (test code = BRANDI) Inspection And Testing Supervisor ID - Liza Lu comments: Slide comments: Lab Interpretation (test Abnormal code = 80731-1) [facility] Equtosddpbit0105-36-83 16:00:23 Test Item Value Reference Range Interpretation [...] Poikilocytes (test code = 1+ few 966) Frederick Cells (test code = 1+ few 474) Artifact (test code = Present 3432) Platelet Conc (test code Decreased = 3438) BRANDI (test code = BRANDI) Inspection And Testing Supervisor ID - Liza Lu comments: Slide comments: Lab Interpretation (test Abnormal code = 22388-3) [facility] Thxdalrnfons6494-80-63 16:00:23 Test Item Value Reference Range Interpretation [...] = 3438) BRANDI (test code = BRANDI) Inspection And Testing Supervisor ID - Liza Lu comments: Slide comments: Lab Interpretation (test Abnormal code = 93358-0) [facility] Vrmbmbhsrwjw3209-55-69 16:00:23 Test Item Value Reference Range Interpretation [...] Poikilocytes (test code = 1+ few 966) Frederick Cells (test code = 1+ few 474) Artifact (test code = Present 3432) Platelet Conc (test code Decreased = 3438) BRANDI (test code = BRANDI) Inspection And Testing Supervisor ID - Liza Lu comments: Slide comments: Lab Interpretation (test Abnormal code = 86672-3) [facility] Rontwqwlgmbc8928-27-19 16:00:23 Test Item Value Reference Range Interpretation [...] = 3438) BRANDI (test code = BRANDI) Inspection And Testing Supervisor ID - Liza Lu comments: Slide comments: Lab Interpretation (test Abnormal code = 02307-8) [facility] Efgioffblosi9670-49-86 16:00:23 Test Item Value Reference Range Interpretation [...] = 3438) BRANDI (test code = BRANDI) Inspection And Testing Supervisor ID - Liza Lu comments: Slide comments: Lab Interpretation (test Abnormal code = 88920-9) [facility] Ylhqnutlyjek0032-19-30 16:00:23 Test Item Value Reference Range Interpretation [...] = 3438) BRANDI (test code = BRANDI) Inspection And Testing Supervisor ID - Liza Lu comments: Slide comments: Lab Interpretation (test Abnormal code = 05721-5) [facility](CELLAVISION MANUAL DIFF)2021-06-18 16:00:23 Test Item [...] CONCENTRATION Decreased (CELLAVISION)(BEAKER) (test code = 3438) Inspection And Testing Supervisor ID - Liza Lu comments: Slide comments:RAD, CHEST, 1 VIEW, NON [id number] 15:58:00Reason for exam:->Post-opShould this be performed at the bedside?->Yes [facility] : 1955 Sex: FFINAL REPORT CHEST AP PORTABLE COMPARISON STUDY: 06/10/2021 History p rovided: Postop evaluation ET tube in place with tip midway between clavicles and marlon. NG tip in the stomach. Right jugular [place]ay[place] catheter with tip in the right main pulmonary artery. Chest tubes with no pneumothorax. Mild right basilar atelectasis with trace right pleural effusion. Lungs otherwise grossly clear and vascularity normal. Signed: Wero Alvarezepst. louis va medical center Verified Date/Time: 06/18/2021 15:58:54 Reading Location: [facility] Diagnostic Imaging Reading Room - [facility] 1310.12 BASIC METABOLIC [id number] 15:57:50 Test Item Value Reference Range Interpretation [...] I S NOT APPLICABLE FOR DIALYSIS PATIEN ALFA. Inspection And Testing Supervisor ID - HIEN MatthewsACxinjoftq-FZDN5950-55-17 15:57:19 Test Item Value Reference Range Interpretation Comments Potassium (test code = 2823-3) 4.8 meq/L 3.5-5.1 Lab Interpretation (test code = Normal 09510-6) [facility]EXC8758[facility]59-28 15:57:19 Test Item Value Reference Range Interpretation Comments Potassium (test code = 2823-3) 4.8 meq/L 3.5-5.1 Lab Interpretation (test code = Normal 25436-8) [facility]ANYO5781-69-44 15:57:19 Test Item Value Reference Range Interpretation Comments Potassium (test code = 2823-3) 4.8 meq/L 3.5-5.1 Lab Interpretation (test code = Normal 33156-4) [facility]-SQWY6277-81-35 15:57:19 Test Item Value Reference Range Interpretation Comments Potassium (test code = 2823-3) 4.8 meq/L 3.5-5.1 Lab Interpretation (test code = Normal 50989-5) [facility]HCKJ4252-99-11 15:57:19 Test Item Value Reference Range Interpretation Comments Potassium (test code = 2823-3) 4.8 meq/L 3.5-5.1 Lab Interpretation (test code = Normal 65677-2) [facility]XAQJ7812-30-60 15:57:19 Test Item Value Reference Range Interpretation Comments Potassium (test code = 2823-3) 4.8 meq/L 3.5-5.1 Lab Interpretation (test code = Normal 78249-8) [facility] HospitalHUYS5450-30-45 15:57:19 Test Item Value Reference Range Interpretation Comments Potassium (test code = 2823-3) 4.8 meq/L 3.5-5.1 Lab Interpretation (test code = Normal 02267-7) [facility]2022-03-17 15:57:19 Test Item Value Reference Range Interpretation Comments Potassium (test code = 2823-3) 4.8 meq/L 3.5-5.1 Lab Interpretation (test code = Normal 37873-3) [facility]GHAI4310-15-08 15:57:19 Test Item Value Reference Range Interpretation Comments Potassium (test code = 2823-3) 4.8 meq/L 3.5-5.1 Lab Interpretation (test code = Normal 36617-4) [facility]2022-03-17 15:57:19 Test Item Value Reference Range Interpretation Comments Potassium (test code = 2823-3) 4.8 meq/L 3.5-5.1 Lab Interpretation (test code = Normal 77071-8) [facility]2022-03-17 15:57:19 Test Item Value Reference Range Interpretation Comments Potassium (test code = 2823-3) 4.8 meq/L 3.5-5.1 Lab Interpretation (test code = Normal 56579-0) [facility]2022-03-17 15:57:19 Test Item Value Reference Range Interpretation Comments Potassium (test code = 2823-3) 4.8 meq/L 3.5-5.1 Lab Interpretation (test code = Normal 40942-2) [facility]2022-03-17 15:57:19 Test Item Value Reference Range Interpretation Comments POTASSIUM (BEAKER) (test code = 4.8 meq/L 3.5-5.1 379) [id number] 15:57:19 Test Item Value Reference Range Interpretation Comments PHOSPHORUS (BEAKER) (test code = 4.9 mg/dL 2.3-4.7 H 604) Inspection And Testing Supervisor ID - HIEN MYPNODYEMH0091-90-40 15:57:18 Test Item Value Reference Range Interpretation Comments MAGNESIUM (BEAKER) (test code = 2.6 mg/dL 1.6-2.6 627) Inspection And Testing Supervisor ID - HIEN MPrepare jofxar2949-61-60 15:44:00 Test Item Value Reference Range Interpretation Comments Unit ABO (test code = O Neg 3423921) UNIT NUMBER (test code = [id number] 934-0) Status (test code = RETURNED FROM ISSUE 5330211) Blood Bank Product (test FFP code = 2263) PRODUCT CODE (test code = L5259E14 933-2) [facility] ozhflv8363-71-25 15:44:00 Test Item Value Reference Range Interpretation Comments Unit ABO (test code = O Neg 8094754) UNIT NUMBER (test code = [id number] 934-0) Status (test code = RETURNED FROM ISSUE 7269161) Blood Bank Product (test FFP code = 2263) PRODUCT CODE (test code = S0161Y22 933-2) [facility] tjduvk8424-35-73 15:44:00 Test Item Value Reference Range Interpretation Comments Unit ABO (test code = O Neg 4561404) UNIT NUMBER (test code = [id number] 934-0) Status (test code = RETURNED FROM ISSUE 6898881) [facility] Product (test FFP code = 2263) PRODUCT CODE (test code = R7178H70 933-2) [facility] vbflqp5204-14-58 15:44:00 Test Item Value Reference Range Interpretation Comments Unit ABO (test code = O Neg 2484341) UNIT NUMBER (test code = [id number] 934-0) Status (test code = RETURNED FROM ISSUE 4636495) [facility] Product (test FFP code = 2263) PRODUCT CODE (test code = U2484Z05 933-2) [facility] boggdm3465-36-73 15:44:00 Test Item Value Reference Range Interpretation Comments Unit ABO (test code = O Neg 4613290) UNIT NUMBER (test code = [id number] 934-0) Status (test code = RETURNED FROM ISSUE 1322723) [facility] Product (test FFP code = 2263) PRODUCT CODE (test code = K0360E24 933-2) [facility] hnofav2970-55-20 15:44:00 Test Item Value Reference Range Interpretation Comments Unit ABO (test code = O Neg 9853926) UNIT NUMBER (test code = [id number] 934-0) Status (test code = RETURNED FROM ISSUE 8473482) [facility] Product (test FFP code = 2263) PRODUCT CODE (test code = Y5385A47 933-2) [facility] kfqgrd3667-43-87 15:44:00 Test Item Value Reference Range Interpretation Comments Unit ABO (test code = O Neg 8785697) UNIT NUMBER (test code = [id number] 934-0) Status (test code = RETURNED FROM ISSUE 6249201) Blood Bank Product (test FFP code = 2263) PRODUCT CODE (test code = M0276Q42 933-2) [facility] cxittw1304-57-71 15:44:00 Test Item Value Reference Range Interpretation Comments Unit ABO (test code = O Neg 1781297) UNIT NUMBER (test code = [id number] 934-0) Status (test code = RETURNED FROM ISSUE 8134605) Blood Bank Product (test FFP code = 2263) PRODUCT CODE (test code = Z3483G31 933-2) [facility] kgquku9141-71-10 15:44:00 Test Item Value Reference Range Interpretation Comments Unit ABO (test code = O Neg 8896278) UNIT NUMBER (test code = [id number] 934-0) Status (test code = RETURNED FROM ISSUE 9049329) Blood Bank Product (test FFP code = 2263) PRODUCT CODE (test code = V6846B34 933-2) [facility] nzqphb1070-14-45 15:44:00 Test Item Value Reference Range Interpretation Comments Unit ABO (test code = O Neg 7154195) UNIT NUMBER (test code = [id number] 934-0) Status (test code = RETURNED FROM ISSUE 5695817) [facility] Product (test FFP code = 2263) PRODUCT CODE (test code = W6103N68 933-2) [facility] uiffag4674-19-75 15:44:00 Test Item Value Reference Range Interpretation Comments Unit ABO (test code = O Neg 6017559) UNIT NUMBER (test code = [id number] 934-0) Status (test code = RETURNED FROM ISSUE 9220781) Blood Bank Product (test FFP code = 2263) PRODUCT CODE (test code = Z9511O79 933-2) [facility] duicdm6809-24-53 15:44:00 Test Item Value Reference Range Interpretation Comments Unit ABO (test code = O Neg 9417923) UNIT NUMBER (test code = [id number] 934-0) Status (test code = RETURNED FROM ISSUE 0199170) Blood Bank Product (test FFP code = 2263) PRODUCT CODE (test code = D6227C85 933-2) [facility] 15:32:33 Test Item Value Reference Range Interpretation Comments PARTIAL THROMBOPLASTIN TIME 37.6 seconds 22.5-36.0 H (BEAKER) (test code = 760) PROTHROMBIN TIME/SSA2187-35-63 15:31:52 Test Item Value Reference Range Interpretation Comments PROTIME (BEAKER) 17.9 seconds 11.9-14.2 H (test code = 759) INR (BEAKER) (test 1.50 See_Comment [Automat ed message] code = 370) The system IAMINTOIT generated this result transmitted ref erence range: [...] See_Comment H [A utomated message] The system IAMINTOIT generated this result transmitted ref erence range: 3.5 - 10 .5 K/L. The refe rence range was not u sed to interpret this result as normal/abnor mal. RBC (test code = 789-8) 3.33 See_Comment L [Au tomated message] The system IAMINTOIT generated this result transmitted ref erence range: 3.93 - 5 .22 M/L. The refe rence range was not u sed to interpret this result as normal/abnor mal. MCHC (test code = 786-4) 31.8 See_Comment L [A utomated message] The system IAMINTOIT generated this result transmitted ref erence range: [...] L [Aut omated message] 777-3) The system IAMINTO[employer] generated this result transmitted ref erence range: 150 - 45 0 K/CU MM. The referen ce range was not u sed to interpret this result as normal/abnor mal. MPV (test code = 10.3 fL 9.4-12.3 78842-1) nRBC (test code = 413) 0 See_Comment [Aut omated message] The system IAMINTOIT generated this result transmitted ref erence range: 0 - 0 /1 00 WBC. The refere nce range was not u sed to interpret this result as normal/abnor mal. Lab Interpretation (test Abnormal code = 52389-7) [facility] with platelet count + automated zglo7944-29-73 15:24:09 Test Item Value Reference Range Interpretation Comments WBC (test code = 6690-2) 16.2 See_Comment H [A utomated message] The system IAMINTOIT generated this result transmitted ref erence range: 3.5 - 10 .5 K/L. The refe rence range was not u sed to interpret this result as normal/abnor mal. RBC (test code = 789-8) 3.33 See_Comment L [Au tomated message] The system IAMINTOIT generated this result transmitted ref erence range: 3.93 - 5 .22 M/L. The refe rence range was not u sed to interpret this result as normal/abnor mal. MCHC (test code = 786-4) 31.8 See_Comment L [A utomated message] The system IAMINTOIT generated this result transmitted ref erence range: [...] L [Aut omated message] 777-3) The system IAMINTOIT generated this result transmitted ref erence range: 150 - 45 0 K/CU MM. The referen ce range was not u sed to interpret this result as normal/abnor mal. MPV (test code = 10.3 fL 9.4-12.3 51744-5) nRBC (test code = 413) 0 See_Comment [Aut omated message] The system IAMINTOIT generated this result transmitted ref erence range: 0 - 0 /1 00 WBC. The refere nce range was not u sed to interpret this result as normal/abnor mal. Lab Interpretation (test Abnormal code = 95960-1) [facility] W/PLT COUNT & AUTO CXFFRFFCUKUD1295-52-79 15:24:09 Test Item Value Reference Range Interpretation [...] (BEAKER) (test code = 413) Hemoglobin and fauxtnhirz8111-90-53 15:23:11 Test Item Value Reference Range Interpretation Comments Hemoglobin (test code = 10.0 See_Comment L [Au tomated message] 786-4) The system IAMINTO[employer] generated this result transmitted ref erence range: 11.2 - 1 5.7 GM/DL. The refe rence range was not u sed to interpret this result as normal/abnor mal. Hematocrit (test code = 31.4 % 34.1-44.9 L 4544-3) Lab Interpretation (test Abnormal code = 92652-1) [facility] QNKFBVDHKO8352-51-06 15:23:11 Test Item Value Reference Range Interpretation Comments HEMOGLOBIN (BEAKER) (test code = 10.0 GM/DL 11.2-15.7 L 410) HEMATOCRIT (BEAKER) (test code = 31.4 % 34.1-44.9 L 411) BLOOD GAS, [id number] 15:19:54 Test Item Value Reference Range Interpretation [...] = 1819) 75.0 HGB/HCT (H&H) - STAT [id number] 15:19:53 Test Item Value Reference Range Interpretation Comments HEMOGLOBIN (BEAKER) (test code = 10.6 GM/DL 12.0-15.0 L 410) HEMATOCRIT (BEAKER) (test code = 31.0 % 36.0-45.0 L 411) GLUCOSE-STAT [id number] 15:19:46 Test Item Value Reference Range Interpretation Comments GLUCOSE RANDOM (BEAKER) (test code 200 mg/dL 70-110 H = 652) OXYGEN SATURATION, KAJZOYWJ7425-23-29 15:18:32 Test Item Value Reference Range Interpretation Comments O2 SATURATION (MEASURED) (BEAKER) 83.4 % (test code = 1455) POTASSIUM-STAT [id number] 15:18:10 Test Item Value Reference Range Interpretation Comments POTASSIUM (BEAKER) (test code = 4.5 meq/L 3.6-5.5 379) SODIUM NA-STAT [id number] 15:18:09 Test Item Value Reference Range Interpretation Comments SODIUM (BEAKER) (test code = 381) 136 meq/L 136-145 CALCIUM, [id number] 15:18:08 Test Item Value Reference Range Interpretation Comments CALCIUM IONIZED (BEAKER) (test 1.14 mmol/L 1.12-1.27 code = 698) PH, BLOOD (BEAKER) (test code = 7.39 1810) POC ACTIVATED CLOTTING [id number] 14:20:47 Test Item Value Reference Range Interpretation Comments Activated Clotting Time 130 sec : 74 -137 seconds, (test code = 441) Baseline: TESTED AT [address], [address]: Inspection And Testing Supervisor/Techni kelle ID = [id number] for Me ndoza, [place] [facility] ACTIVATED CLOTTING [id number] 14:20:47 Test Item Value Reference Range Interpretation Comments Activated Clotting Time 130 sec : 74 -137 seconds, (test code = 441) Baseline: TESTED AT [facility] [address] [facility], [address]: Inspection And Testing Supervisor/Techni kelle ID = [id number] for Me ndoza, [place] [facility] ACTIVATED CLOTTING [id number] 14:20:47 Test Item Value Reference Range Interpretation Comments Activated Clotting Time 130 sec : 74 -137 seconds, (test code = 441) Baseline: TESTED AT [address], [address]: Inspection And Testing Supervisor/Techni kelle ID = [id number] for Me ndoza, [place] [facility] ACTIVATED CLOTTING [id number] 14:20:47 Test Item Value Reference Range Interpretation Comments Activated Clotting Time 130 sec : 74 -137 seconds, (test code = 441) Baseline: TESTED AT [address] [address], [address]: Inspection And Testing Supervisor/Techni kelle ID = [id number] for Me ndoza, Rocky CONTRERAS [facility] ACTIVATED CLOTTING [id number] 14:20:47 Test Item Value Reference Range Interpretation Comments Activated Clotting Time 130 sec : 74 -137 seconds, (test code = 441) Baseline: TESTED AT [address], [address]: Inspection And Testing Supervisor/Techni kelle ID = [id number] for Me ndoza, Rocky CONTRERAS [facility] ACTIVATED CLOTTING [id number] 14:20:47 Test Item Value Reference Range Interpretation Comments Activated Clotting Time 130 sec : 74 -137 seconds, (test code = 441) Baseline: TESTED AT [address], [address] 30: Inspection And Testing Supervisor/Techni kelle ID = [id number] for Me ndoza, Rocky CONTRERAS [facility] ACTIVATED CLOTTING [id number] 14:20:47 Test Item Value Reference Range Interpretation Comments Activated Clotting Time 130 sec : 74 -137 seconds, (test code = 441) Baseline: TESTED AT [address], [address]: Inspection And Testing Supervisor/Techni kelle ID = [id number] for Me ndoza, Rocky CONTRERAS [facility] ACTIVATED CLOTTING [id number] 14:20:47 Test Item Value Reference Range Interpretation Comments Activated Clotting Time 130 sec : 74 -137 seconds, (test code = 441) Baseline: TESTED AT [address], [address]70 30: Inspection And Testing Supervisor/Techni kelle ID = [id number] for Me ndoza, Rocky CONTRERAS [facility] ACTIVATED CLOTTING [id number] 14:20:47 Test Item Value Reference Range Interpretation Comments Activated Clotting Time 130 sec : 74 -137 seconds, (test code = 441) Baseline: TESTED AT [address], [address]: Inspection And Testing Supervisor/Techni kelle ID = [id number] for Me sanchezoza, Rocky CONTRERAS [facility] ACTIVATED CLOTTING [id number] 14:20:47 Test Item Value Reference Range Interpretation Comments Activated Clotting Time 130 sec : 74 -137 seconds, (test code = 441) Baseline: TESTED AT [address], [address]70 30: Inspection And Testing Supervisor/Techni kelle ID = [id number] for Me sanchezoza, Rocky CONTRERAS [facility] ACTIVATED CLOTTING [id number] 14:20:47 Test Item Value Reference Range Interpretation Comments Activated Clotting Time 130 sec : 74 -137 seconds, (test code = 441) Baseline: TESTED AT [address], [address]: Inspection And Testing Supervisor/Techni kelle ID = [id number] for Me sanchezoza, Rocky [facility] ACTIVATED CLOTTING [id number] 14:20:47 Test Item Value Reference Range Interpretation Comments Activated Clotting Time 130 sec : 74 -137 seconds, (test code = 441) Baseline: TESTED AT [address], [address]: Inspection And Testing Supervisor/Techni kelle ID = [id number] for Me sanchezoza, Rocky [facility]AS [id number] 14:20:47 Test Item Value Reference Range Interpretation Comments ACTIVATED CLOTTING TIME 130 sec : 74 -137 seconds, (BEAKER) (test code = Baseli ne: TESTED AT 441) [address], [address]: Inspection And Testing Supervisor/Techni kelle ID = [id number] for Me sanchezoza, Rocky [id number] 14:20:46 Test Item Value Reference Range Interpretation Comments ACTIVATED CLOTTING TIME 577 sec : 74 -137 seconds, (BEAKER) (test code = Baseli ne: TESTED AT 441) [address], [address]: Inspection And Testing Supervisor/Techni kelle ID = [id number] for Me ndoza, Rocky [id number] 14:20:45 Test Item Value Reference Range Interpretation Comments ACTIVATED CLOTTING TIME 743 sec : 74 -137 seconds, (BEAKER) (test code = Baseli ne: TESTED AT 441) [address], [address]: Inspection And Testing Supervisor/Techni kelle ID = [id number] for Rocky Danielle [id number] 14:20:45 Test Item Value Reference Range Interpretation Comments ACTIVATED CLOTTING TIME 618 sec : 74 -137 seconds, (BEAKER) (test code = Baseli ne: TESTED AT 441) [address], [address]: Inspection And Testing Supervisor/Techni kelle ID = [id number] for Rocky Danielle [id number] 14:20:44 Test Item Value Reference Range Interpretation Comments ACTIVATED CLOTTING TIME 547 sec : 74 -137 seconds, (BEAKER) (test code = Baseli ne: TESTED AT 441) [address], [address]70 30: Inspection And Testing Supervisor/Techni kelle ID = [id number] for Rocky Danielle [id number] 14:20:12 Test Item Value Reference Range Interpretation Comments ACTIVATED CLOTTING TIME 809 sec : 74 -137 seconds, (BEAKER) (test code = Baseli ne: TESTED AT 441) [address], [address]70 30: Inspection And Testing Supervisor/Techni kelle ID = [id number] for Rocky Danielle [id number] 13:49:05 Test Item Value Reference Range Interpretation Comments PARTIAL THROMBOPLASTIN TIME 38.3 seconds 22.5-36.0 H (BEAKER) (test code = 760) [id number] 13:48:43 Test Item Value Reference Range Interpretation Comments Fibrinogen (test code = 3255-7) 246 mg/dl 225-434 Lab Interpretation (test code = Normal 81336-2) [facility] 13:48:43 Test Item Value Reference Range Interpretation Comments Fibrinogen (test code = 3255-7) 246 mg/dl 225-434 Lab Interpretation (test code = Normal 27863-9) [facility] 13:48:43 Test Item Value Reference Range Interpretation Comments Fibrinogen (test code = 3255-7) 246 mg/dl 225-434 Lab Interpretation (test code = Normal 48405-5) [facility] [id number] 13:48:43 Test Item Value Reference Range Interpretation Comments Fibrinogen (test code = 3255-7) 246 mg/dl 225-434 Lab Interpretation (test code = Normal 80432-0) [place] [id number] 13:48:43 Test Item Value Reference Range Interpretation Comments Fibrinogen (test code = 3255-7) 246 mg/dl 225-434 Lab Interpretation (test code = Normal 23432-7) [place] [id number] 13:48:43 Test Item Value Reference Range Interpretation Comments Fibrinogen (test code = 3255-7) 246 mg/dl 225-434 Lab Interpretation (test code = Normal 85877-5) [place] [id number] 13:48:43 Test Item Value Reference Range Interpretation Comments Fibrinogen (test code = 3255-7) 246 mg/dl 225-434 Lab Interpretation (test code = Normal 53891-1) [facility]2022-03-17 13:48:43 Test Item Value Reference Range Interpretation Comments Fibrinogen (test code = 3255-7) 246 mg/dl 225-434 Lab Interpretation (test code = Normal 73453-0) [facility]2022-03-17 13:48:43 Test Item Value Reference Range Interpretation Comments Fibrinogen (test code = 3255-7) 246 mg/dl 225-434 Lab Interpretation (test code = Normal 42862-0) [facility]2022-03-17 13:48:43 Test Item Value Reference Range Interpretation Comments Fibrinogen (test code = 3255-7) 246 mg/dl 225-434 Lab Interpretation (test code = Normal 34518-4) [place] [id number] 13:48:43 Test Item Value Reference Range Interpretation Comments Fibrinogen (test code = 3255-7) 246 mg/dl 225-434 Lab Interpretation (test code = Normal 17967-6) [place] [id number] 13:48:43 Test Item Value Reference Range Interpretation Comments Fibrinogen (test code = 3255-7) 246 mg/dl 225-434 Lab Interpretation (test code = Normal 93611-7) [facility] 13:48:43 Test Item Value Reference Range Interpretation Comments FIBRINOGEN LEVEL (BEAKER) (test 246 mg/dl 225-434 code = 658) PROTHROMBIN TIME/[id number] 13:48:05 Test Item Value Reference Range Interpretation Comments PROTIME (BEAKER) 19.5 seconds 11.9-14.2 H (test code = 759) INR (BEAKER) (test 1.67 See_Comment [Automat ed message] code = 370) The system [employer] h generated this result transmitted ref erence range: <=5.90. The reference range was not used to int erpret this result as normal/abnormal . RECOMMENDED COUMADIN/WARFARIN INR THERAPY RANGESSTANDARD DOSE: 2.0 - 3.0 Includes: PROPHYLAXIS forvenous thrombosis, systemic embolization; TREATMENT for venous thrombosis and/or pulmonary embolus.HIGH RISK: Target INR is 2.5-3.5 for patients with mechanical heart valves.Platelet [id number] 13:39:36 Test Item Value Reference Range Interpretation Comments Platelets (test code 133 See_Comment L [Autom ated = 777-3) message] The system which generated this result transmit levi reference range : 150 - 450 K/CU MM. The reference range was not u sed to interpret th is result as normal/abnormal . BRANDI (test code = BRANDI) Inspection And Testing Supervisor ID - [id number] Lab Interpretation Abnormal (test code = 32905-4) [facility] [id number] 13:39:36 Test Item Value Reference Range Interpretation Comments Platelets (test code 133 See_Comment L [Autom ated = 777-3) message] The system which generated this result transmit levi reference range : 150 - 450 K/CU MM. The reference range was not u sed to interpret th is result as normal/abnormal . BRANDI (test code = BRANDI) Inspection And Testing Supervisor ID - [id number] Lab Interpretation Abnormal (test code = 03403-0) [facility] [id number] 13:39:36 Test Item Value Reference Range Interpretation Comments Platelets (test code 133 See_Comment L [Autom ated = 777-3) message] The system which generated this result transmit levi reference range : 150 - 450 K/CU MM. The reference range was not u sed to interpret th is result as normal/abnormal . BRANDI (test code = BRANDI) Inspection And Testing Supervisor ID - [id number] Lab Interpretation Abnormal (test code = 44284-6) [facility] [id number] 13:39:36 Test Item Value Reference Range Interpretation Comments Platelets (test code 133 See_Comment L [Autom ated = 777-3) message] The system which generated this result transmit levi reference range : 150 - 450 K/CU MM. The reference range was not u sed to interpret th is result as normal/abnormal . BRANDI (test code = BRANDI) Inspection And Testing Supervisor ID - [id number] Lab Interpretation Abnormal (test code = 97447-2) [facility] [id number] 13:39:36 Test Item Value Reference Range Interpretation Comments Platelets (test code 133 See_Comment L [Autom ated = 777-3) message] The system which generated this result transmit levi reference range : 150 - 450 K/CU MM. The reference range was not u sed to interpret th is result as normal/abnormal . BRANDI (test code = BRANDI) Inspection And Testing Supervisor ID - [id number] Lab Interpretation Abnormal (test code = 23364-8) [facility] [id number] 13:39:36 Test Item Value Reference Range Interpretation Comments Platelets (test code 133 See_Comment L [Autom ated = 777-3) message] The system which generated this result transmit levi reference range : 150 - 450 K/CU MM. The reference range was not u sed to interpret th is result as normal/abnormal . BRANDI (test code = BRANDI) Inspection And Testing Supervisor ID - [id number] Lab Interpretation Abnormal (test code = 66582-1) [facility] [id number] 13:39:36 Test Item Value Reference Range Interpretation Comments Platelets (test code 133 See_Comment L [Autom ated = 777-3) message] The system which generated this result transmit levi reference range : 150 - 450 K/CU MM. The reference range was not u sed to interpret th is result as normal/abnormal . BRANDI (test code = BRANDI) Inspection And Testing Supervisor ID - [id number] Lab Interpretation Abnormal (test code = 61216-4) [facility] [id number] 13:39:36 Test Item Value Reference Range Interpretation Comments Platelets (test code 133 See_Comment L [Autom ated = 777-3) message] The system which generated this result transmit levi reference range : 150 - 450 K/CU MM. The reference range was not u sed to interpret th is result as normal/abnormal . BRANDI (test code = BRANDI) Inspection And Testing Supervisor ID - [id number] Lab Interpretation Abnormal (test code = 44732-1) [facility] [id number] 13:39:36 Test Item Value Reference Range Interpretation Comments Platelets (test code 133 See_Comment L [Autom ated = 777-3) message] The system which generated this result transmit levi reference range : 150 - 450 K/CU MM. The reference range was not u sed to interpret th is result as normal/abnormal . BRANDI (test code = BRANDI) Inspection And Testing Supervisor ID - [id number] Lab Interpretation Abnormal (test code = 24070-9) [facility] Heart[facility] [id number] 13:39:36 Test Item Value Reference Range Interpretation Comments Platelets (test code 133 See_Comment L [Autom ated = 777-3) message] The system which generated this result transmit levi reference range : 150 - 450 K/CU MM. The reference range was not u sed to interpret th is result as normal/abnormal . BRANDI (test code = BRANDI) Inspection And Testing Supervisor ID - [id number] Lab Interpretation Abnormal (test code = 73308-0) [facility] [id number] 13:39:36 Test Item Value Reference Range Interpretation Comments Platelets (test code 133 See_Comment L [Autom ated = 777-3) message] The system which generated this result transmit levi reference range : 150 - 450 K/CU MM. The reference range was not u sed to interpret th is result as normal/abnormal . BRANDI (test code = BRANDI) Inspection And Testing Supervisor ID - [id number] Lab Interpretation Abnormal (test code = 46255-6) [facility] [id number] 13:39:36 Test Item Value Reference Range Interpretation Comments Platelets (test code 133 See_Comment L [Autom ated = 777-3) message] The system which generated this result transmit levi reference range : 150 - 450 K/CU MM. The reference range was not u sed to interpret th is result as normal/abnormal . BRANDI (test code = BRANDI) Inspection And Testing Supervisor ID - [id number] Lab Interpretation Abnormal (test code = 34194-9) [facility] [id number] 13:39:36 Test Item Value Reference Range Interpretation Comments PLATELET COUNT (BEAKER) (test 133 K/CU MM 150-450 L code = 756) Inspection And Testing Supervisor ID - [id number]/HCT (H&H) - STAT [id number] 13:26:47 Test Item Value Reference Range Interpretation Comments HEMOGLOBIN (BEAKER) (test code = 7.4 GM/DL 12.0-15.0 L 410) HEMATOCRIT (BEAKER) (test code = 22.0 % 36.0-45.0 L 411) GLUCOSE-STAT [id number] 13:26:46 Test Item Value Reference Range Interpretation Comments GLUCOSE RANDOM (BEAKER) (test code 199 mg/dL 70-110 H = 652) SODIUM NA-STAT [id number] 13:26:46 Test Item Value Reference Range Interpretation Comments SODIUM (BEAKER) (test code = 381) 134 meq/L 136-145 L CALCIUM, [id number] 13:26:40 Test Item Value Reference Range Interpretation Comments CALCIUM IONIZED (BEAKER) (test 1.03 mmol/L 1.12-1.27 L code = 698) PH, BLOOD (BEAKER) (test code = 7.33 1810) BLOOD GAS, [id number] 13:26:34 Test Item Value Reference Range Interpretation [...] (BEAKER) (test code = 1819) 100.0 POTASSIUM-STAT [id number] 13:24:59 Test Item Value Reference Range Interpretation Comments POTASSIUM (BEAKER) (test code = 4.5 meq/L 3.6-5.5 379) PLATELET [id number] 13:18:08 Test Item Value Reference Range Interpretation Comments PLATELET COUNT (BEAKER) (test code 53 K/CU MM 150-450 L = 756) Inspection And Testing Supervisor ID - [id number] ID - [id number] ID - [id number] 12:53:55 Test Item Value Reference Range Interpretation Comments PARTIAL THROMBOPLASTIN TIME > seconds 22.5-36.0 HH (BEAKER) (test code = 760) [id number] 12:36:04 Test Item Value Reference Range Interpretation Comments FIBRINOGEN LEVEL (BEAKER) (test 289 mg/dl 225-434 code = 658) PROTHROMBIN TIME/[id number] 12:35:28 Test Item Value Reference Range Interpretation Comments PROTIME (BEAKER) 25.4 seconds 11.9-14.2 H (test code = 759) INR (BEAKER) (test 2.35 See_Comment [Automat ed message] code = 370) The system [employer] generated this result transmitted ref erence range: <=5.90. The reference range was not used to int erpret this result as normal/abnormal . RECOMMENDED COUMADIN/WARFARIN INR THERAPY RANGESSTANDARD DOSE: 2.0 - 3.0 Includes: PROPHYLAXIS forvenous thrombosis, systemic embolization; TREATMENT for venous thrombosis and/or pulmonary embolus.HIGH RISK: Target INR is 2.5-3.5 for patients with mechanical heart valves.HGB/HCT (H&H) - STAT [id number] 12:28:06 Test Item Value Reference Range Interpretation Comments HEMOGLOBIN (BEAKER) (test code = 9.3 GM/DL 12.0-15.0 L 410) HEMATOCRIT (BEAKER) (test code = 27.0 % 36.0-45.0 L 411) SODIUM NA-STAT [id number] 12:28:05 Test Item Value Reference Range Interpretation Comments SODIUM (BEAKER) (test code = 381) 133 meq/L 136-145 L GLUCOSE-STAT [id number] 12:28:05 Test Item Value Reference Range Interpretation Comments GLUCOSE RANDOM (BEAKER) (test code 189 mg/dL 70-110 H = 652) BLOOD GAS, [id number] 12:28:04 Test Item Value Reference Range Interpretation [...] (BEAKER) (test code = 1819) 75.0 POTASSIUM-STAT [id number] 12:27:48 Test Item Value Reference Range Interpretation Comments POTASSIUM (BEAKER) (test code = 5.5 meq/L 3.6-5.5 379) BLOOD GAS, [id number] 11:48:59 Test Item Value Reference Range Interpretation [...] (BEAKER) (test code = 1819) 70.0 GLUCOSE-STAT [id number] 11:47:10 Test Item Value Reference Range Interpretation Comments GLUCOSE RANDOM (BEAKER) (test code 186 mg/dL 70-110 H = 652) HGB/HCT (H&H) - STAT [id number] 11:47:10 Test Item Value Reference Range Interpretation Comments HEMOGLOBIN (BEAKER) (test code = 8.9 GM/DL 12.0-15.0 L 410) HEMATOCRIT (BEAKER) (test code = 26.0 % 36.0-45.0 L 411) SODIUM NA-STAT [id number] 11:47:09 Test Item Value Reference Range Interpretation Comments SODIUM (BEAKER) (test code = 381) 133 meq/L 136-145 L POTASSIUM-STAT [id number] 11:46:29 Test Item Value Reference Range Interpretation Comments POTASSIUM (BEAKER) (test code = 5.3 meq/L 3.6-5.5 379) HGB/HCT (H&H) - STAT [id number] 11:17:46 Test Item Value Reference Range Interpretation Comments HEMOGLOBIN (BEAKER) (test code = 9.6 GM/DL 12.0-15.0 L 410) HEMATOCRIT (BEAKER) (test code = 28.0 % 36.0-45.0 L 411) SODIUM NA-STAT [id number] 11:17:45 Test Item Value Reference Range Interpretation Comments SODIUM (BEAKER) (test code = 381) 133 meq/L 136-145 L BLOOD GAS, [id number] 11:17:39 Test Item Value Reference Range Interpretation [...] (BEAKER) (test code = 1819) 70.0 GLUCOSE-STAT [id number] 11:17:39 Test Item Value Reference Range Interpretation Comments GLUCOSE RANDOM (BEAKER) (test code 171 mg/dL 70-110 H = 652) POTASSIUM-STAT [id number] 11:17:36 Test Item Value Reference Range Interpretation Comments POTASSIUM (BEAKER) (test code = 5.1 meq/L 3.6-5.5 379) HGB/HCT (H&H) - STAT [id number] 10:50:26 Test Item Value Reference Range Interpretation Comments HEMOGLOBIN (BEAKER) (test code = 8.4 GM/DL 12.0-15.0 L 410) HEMATOCRIT (BEAKER) (test code = 25.0 % 36.0-45.0 L 411) SODIUM NA-STAT [id number] 10:50:25 Test Item Value Reference Range Interpretation Comments SODIUM (BEAKER) (test code = 381) 133 meq/L 136-145 L GLUCOSE-STAT [id number] 10:50:25 Test Item Value Reference Range Interpretation Comments GLUCOSE RANDOM (BEAKER) (test code 134 mg/dL 70-110 H = 652) BLOOD GAS, [id number] 10:50:24 Test Item Value Reference Range Interpretation [...] (BEAKER) (test code = 1819) 100.0 POTASSIUM-STAT [id number] 10:49:45 Test Item Value Reference Range Interpretation Comments POTASSIUM (BEAKER) (test code = 3.8 meq/L 3.6-5.5 379) Hemoglobin [id number] 09:30:26 Test Item Value Reference Range Interpretation [...] ADM Lab Interpretation Abnormal (test code = 79158-3) [facility] [id number] 09:30:26 Test Item Value Reference Range Interpretation [...] ADM Lab Interpretation Abnormal (test code = 62032-6) [facility] [id number] 09:30:26 Test Item Value Reference Range Interpretation [...] ADM Lab Interpretation Abnormal (test code = 47597-6) [facility] [id number] 09:30:26 Test Item Value Reference Range Interpretation [...] ADM Lab Interpretation Abnormal (test code = 96696-2) [facility] [id number] 09:30:26 Test Item Value Reference Range Interpretation [...] ADM Lab Interpretation Abnormal (test code = 27719-9) [facility] [id number] 09:30:26 Test Item Value Reference Range Interpretation [...] ADM Lab Interpretation Abnormal (test code = 82726-6) [facility] [id number] 09:30:26 Test Item Value Reference Range Interpretation [...] ADM Lab Interpretation Abnormal (test code = 40274-9) [facility] [id number] 09:30:26 Test Item Value Reference Range Interpretation [...] ADM Lab Interpretation Abnormal (test code = 00700-3) [facility] [id number] 09:30:26 Test Item Value Reference Range Interpretation [...] ADM Lab Interpretation Abnormal (test code = 55154-7) [facility] [id number] 09:30:26 Test Item Value Reference Range Interpretation [...] ADM Lab Interpretation Abnormal (test code = 63926-6) [facility] [id number] 09:30:26 Test Item Value Reference Range Interpretation [...] ADM Lab Interpretation Abnormal (test code = 30265-8) [facility] [id number] 09:30:26 Test Item Value Reference Range Interpretation [...] ADM Lab Interpretation Abnormal (test code = 69008-8) [facility]MO[facility] [id number] 09:30:26 Test Item Value Reference Range Interpretation [...] 5.7- 6.4% indicates increased risk for diabetes (prediabetes)."Inspection And Testing Supervisor ID - ADM HGB/HCT (H&H) - STAT [id number] 09:13:03 Test Item Value Reference Range Interpretation Comments HEMOGLOBIN (BEAKER) (test code = 9.0 GM/DL 12.0-15.0 L 410) HEMATOCRIT (BEAKER) (test code = 26.0 % 36.0-45.0 L 411) SODIUM NA-STAT [id number] 09:13:02 Test Item Value Reference Range Interpretation Comments SODIUM (BEAKER) (test code = 381) 134 meq/L 136-145 L GLUCOSE-STAT [id number] 09:13:02 Test Item Value Reference Range Interpretation Comments GLUCOSE RANDOM (BEAKER) (test code 112 mg/dL 70-110 H = 652) BLOOD GAS, [id number] 09:13:01 Test Item Value Reference Range Interpretation [...] (BEAKER) (test code = 1819) 100.0 CALCIUM, [id number] 09:13:00 Test Item Value Reference Range Interpretation Comments CALCIUM IONIZED (BEAKER) (test 1.09 mmol/L 1.12-1.27 L code = 698) PH, BLOOD (BEAKER) (test code = 7.46 1810) POTASSIUM-STAT [id number] 09:12:15 Test Item Value Reference Range Interpretation Comments POTASSIUM (BEAKER) (test code = 3.7 meq/L 3.6-5.5 379) BASIC METABOLIC [id number] 07:11:03 Test Item Value Reference Range Interpretation [...] S NOT APPLICABLE FOR DIALYSIS PATIEN TS. Inspection And Testing Supervisor ID - HIEN [id number] 06:29:42 Test Item Value Reference Range Interpretation Comments PHOSPHORUS (BEAKER) (test code = 4.7 mg/dL 2.3-4.7 604) Inspection And Testing Supervisor ID - HIEN [id number] 06:29:41 Test Item Value Reference Range Interpretation Comments MAGNESIUM (BEAKER) (test code = 2.0 mg/dL 1.6-2.6 627) Inspection And Testing Supervisor ID - HIEN [facility] W/PLT COUNT & AUTO [id number] 06:04:09 Test Item Value Reference Range Interpretation [...] code = 2801) RAD, ABDOMEN/KUB, 1 VIEW [id number] 02:55:00Reason for exam:->abdominal painCHI NORTHER[facility]ITALName: [facility] MER[facility] : 1955 Sex: FFINAL REPORT CLINICAL [...] BRAXTON QUINTERO M.D. on 06/18/2021 02:55 AMPOCT-GLUCOSE [id number] 21:39:12 Test Item Value Reference Range Interpretation Comments POC-GLUCOSE METER 135 mg/dL 70-110 H : TESTED A T [facility] 6720 (BEAKER) (test code = YUDY Vaca [facility], 1538) [address]: Inspection And Testing Supervisor/Techni kelle ID = [id number] for Eliezer Jerome HEMOGLOBIN AND [id number] 21:31:20 Test Item Value Reference Range Interpretation Comments HEMOGLOBIN (BEAKER) (test code = 6.9 GM/DL 11.2-15.7 L 410) HEMATOCRIT (BEAKER) (test code = 21.8 % 34.1-44.9 L 411) Inspection And Testing Supervisor ID - [id number] ID - [id number], [id number] 18:33:00Unlisted Reason for Exam - Click Yes and Enter Reason Below->NoIs this for enterography?->NoPlease specify:->Renal Stone Protocolalso look for spleen if there is any infarct causing left flankpainWill this procedure require oral contrast?->NoKAISER FOUNDATION [facility] : 1955 Sex: FFINAL REPORT EXAM: [...] MDReport Verified Date/Time: 06/17/2021 18:33:28 Reading Location: [address] Reading Room Comprehensive metabolic [id number] 16:18:22 Test Item Value Reference Range Interpretation Comments Protein, Total (test 7.0 See_Comment [Autom ated code = 2885-2) message] The system which generated this result transmit levi reference range : 6.0 - 8.3 gm/dL . The reference range was not u sed to interpret th is result as normal/abnormal . Albumin (test code = 2.7 g/dL 3.5-5.0 L 93697-1) Alkaline Phosphatase 99 U/L 40-150 (test code = 6768-6) Total Bilirubin (test 0.4 mg/dL 0.2-1.2 code = 1975-2) Sodium (test code = 135 meq/L 136-145 L 2951-2) Potassium (test code 3.7 meq/L 3.5-5.1 = 2823-3) Chloride (test code = 100 meq/L 98-107 5-0) CO2 (test code = 29 meq/L -2027-12) BUN (test code = 17 mg/dL 7-21 3094-0) Creatinine (test code 4.22 mg/dL 0.57-1.25 H = 2160-0) Glucose (test code = 109 mg/dL 70-105 H 2345-7) Calcium (test code = 8.4 mg/dL 8.4-10.2 16118-9) AST (test code = 17 U/L 5-34 1920-8) ALT (test code = 10 U/L 6-55 1742-6) EGFR (test code = 11 mL/min/1.[place] [address]-3) NOT ACCURATE CREATININE CLEARANCE IN PREDICTING GLOMERULAR FILTRATION RATE . ESTIMATED GFR I S NOT APPLICABLE FOR DIALYSIS PATIEN TS. BRANDI (test code = BRANDI) Inspection And Testing Supervisor ID - BS Lab Interpretation Abnormal (test code = 57649-9) [facility] [id number] 16:18:22 Test Item Value Reference Range Interpretation Comments Protein, Total (test 7.0 See_Comment [Autom ated code = 2885-2) message] The system which generated this result transmit levi reference range : 6.0 - 8.3 gm/dL . The reference range was not u sed to interpret th is result as normal/abnormal . Albumin (test code = 2.7 g/dL 3.5-5.0 L 18050-7) Alkaline Phosphatase 99 U/L 40-150 (test code [...] Calcium (test code = 8.4 mg/dL 8.4-10.2 81339-0) AST (test code = 17 U/L 5-34 1920-8) ALT (test code = 10 U/L 6-55 1742-6) EGFR (test code = 11 mL/min/1.[place] [address]-0) NOT ACCURATE CREATININE CLEARANCE IN PREDICTING GLOMERULAR FILTRATION RATE . ESTIMATED GFR I S NOT APPLICABLE FOR DIALYSIS PATIEN ALFA. BRANDI (test code = BRANDI) Inspection And Testing Supervisor ID - BS Lab Interpretation Abnormal (test code = 29637-1) [facility] [id number] 16:18:22 Test Item Value Reference Range Interpretation Comments Protein, Total (test 7.0 See_Comment [Autom ated code = 2885-2) message] The system which generated this result transmit levi reference range : 6.0 - 8.3 gm/dL . The reference range was not u sed to interpret th is result as normal/abnormal . Albumin (test code = 2.7 g/dL 3.5-5.0 L 64571-4) Alkaline Phosphatase 99 U/L 40-150 (test code = 6768-6) Total Bilirubin (test 0.4 mg/dL 0.2-1.2 code = 1974-2) Sodium (test code = 135 meq/L 136-145 L 2951-2) Potassium (test code 3.7 meq/L 3.5-5.1 = 2823-3) Chloride (test code = 100 meq/L 98-107 2075-0) CO2 (test code = 29 meq/L 2027-12) BUN (test code = 17 mg/dL 10-22 3094-0) Creatinine (test code 4.22 mg/dL 0.57-1.25 H = 2160-0) Glucose (test code = 109 mg/dL 70-105 H 2345-7) Calcium (test code = 8.4 mg/dL 8.4-10.2 14911-5) AST (test code = 17 U/L 1919-8) ALT (test code = 10 U/L 2-6) EGFR (test code = 11 mL/min/1.[place] [address]-3) NOT ACCURATE CREATININE CLEARANCE IN PREDICTING GLOMERULAR FILTRATION RATE . ESTIMATED GFR I S NOT APPLICABLE FOR DIALYSIS PATIEN TSEsvin BRANDI (test code = BRANDI) Inspection And Testing Supervisor ID - BS Lab Interpretation Abnormal (test code = 25599-0) [facility] [id number] 16:18:22 Test Item Value Reference Range Interpretation Comments Protein, Total (test 7.0 See_Comment [Autom ated code = 2885-2) message] The system which generated this result transmit levi reference range : 6.0 - 8.3 gm/dL . The reference range was not u sed to interpret th is result as normal/abnormal . Albumin (test code = 2.7 g/dL 3.5-5.0 L 54274-8) Alkaline Phosphatase 99 U/L 40-150 (test code = 6768-6) Total Bilirubin (test 0.4 mg/dL 0.2-1.2 code = 1975-2) Sodium (test code = 135 meq/L 136-145 L 2951-2) Potassium (test code 3.7 meq/L 3.5-5.1 = 2823-3) Chloride (test code = 100 meq/L 98-107 2075-0) CO2 (test code = 29 meq/L 22-29 8-9) BUN (test code = 17 mg/dL 7- 3094-0) Creatinine (test code 4.22 mg/dL 0.57-1.25 H = 2160-0) Glucose (test code = 109 mg/dL 70-105 H 2345-7) Calcium (test code = 8.4 mg/dL 8.4-10.2 37906-3) AST (test code = 17 U/L 1919-8) ALT (test code = 10 U/L 1742-6) EGFR (test code = 11 mL/min/1.[place] [address]-6) NOT ACCURATE CREATININE CLEARANCE IN PREDICTING GLOMERULAR FILTRATION RATE . ESTIMATED GFR I S NOT APPLICABLE FOR DIALYSIS PATIEN TS. BRANDI (test code = BRANDI) Inspection And Testing Supervisor ID - BS Lab Interpretation Abnormal (test code = 77405-3) [facility] [id number] 16:18:22 Test Item Value Reference Range Interpretation Comments Protein, Total (test 7.0 See_Comment [Autom ated code = 2885-2) message] The system which generated this result transmit levi reference range : 6.0 - 8.3 gm/dL . The reference range was not u sed to interpret th is result as normal/abnormal . Albumin (test code = 2.7 g/dL 3.5-5.0 L 62795-5) Alkaline Phosphatase 99 U/L 40-150 (test code [...] Calcium (test code = 8.4 mg/dL 8.4-10.2 11550-9) AST (test code = 17 U/L 5-34 1920-8) ALT (test code = 10 U/L 6-55 1742-6) EGFR (test code = 11 mL/min/1.[place] [address]-6) NOT ACCURATE CREATININE CLEARANCE IN PREDICTING GLOMERULAR FILTRATION RATE . ESTIMATED GFR I S NOT APPLICABLE FOR DIALYSIS PATIEN TS. BRANDI (test code = BRANDI) Inspection And Testing Supervisor ID - BS Lab Interpretation Abnormal (test code = 43867-3) [facility] [id number] 16:18:22 Test Item Value Reference Range Interpretation Comments Protein, Total (test 7.0 See_Comment [Autom ated code = 2885-2) message] The system which generated this result transmit levi reference range : 6.0 - 8.3 gm/dL . The reference range was not u sed to interpret th is result as normal/abnormal . Albumin (test code = 2.7 g/dL 3.5-5.0 L 41082-7) Alkaline Phosphatase 99 U/L 40-150 (test code [...] Calcium (test code = 8.4 mg/dL 8.4-10.2 60469-2) AST (test code = 17 U/L 5-34 1920-8) ALT (test code = 10 U/L 6-55 1742-6) EGFR (test code = 11 mL/min/1.[place] [address]-2) NOT ACCURATE CREATININE CLEARANCE IN PREDICTING GLOMERULAR FILTRATION RATE . ESTIMATED GFR I S NOT APPLICABLE FOR DIALYSIS PATIEN TS. BRANDI (test code = BRANDI) Inspection And Testing Supervisor ID - BS Lab Interpretation Abnormal (test code = 03978-2) [facility] [id number] 16:18:22 Test Item Value Reference Range Interpretation Comments Protein, Total (test 7.0 See_Comment [Autom ated code = 2885-2) message] The system which generated this result transmit levi reference range : 6.0 - 8.3 gm/dL . The reference range was not u sed to interpret th is result as normal/abnormal . Albumin (test code = 2.7 g/dL 3.5-5.0 L 92495-0) Alkaline Phosphatase 99 U/L 40-150 (test code [...] Calcium (test code = 8.4 mg/dL 8.4-10.2 50792-4) AST (test code = 17 U/L 5-34 1920-8) ALT (test code = 10 U/L 655 1742-6) EGFR (test code = 11 mL/min/1.[place] [address]-3) NOT ACCURATE CREATININE CLEARANCE IN PREDICTING GLOMERULAR FILTRATION RATE . ESTIMATED GFR I S NOT APPLICABLE FOR DIALYSIS PATIEN TS. BRANDI (test code = BRANDI) Inspection And Testing Supervisor ID - BS Lab Interpretation Abnormal (test code = 65110-7) [facility] [id number] 16:18:22 Test Item Value Reference Range Interpretation Comments Protein, Total (test 7.0 See_Comment [Autom ated code = 2885-2) message] The system which generated this result transmit levi reference range : 6.0 - 8.3 gm/dL . The reference range was not u sed to interpret th is result as normal/abnormal . Albumin (test code = 2.7 g/dL 3.5-5.0 L 21760-4) Alkaline Phosphatase 99 U/L 40-150 (test code = 6768-6) Total Bilirubin (test 0.4 mg/dL 0.2-1.2 code = 1974-) Sodium (test code = 135 meq/L 136-145 L 2951-2) Potassium (test code 3.7 meq/L 3.5-5.1 = 2823-3) Chloride (test code = 100 meq/L 98-107 2074-0) CO2 (test code = 29 meq/L 2027-12) BUN (test code = 17 mg/dL 10-22 3094-0) Creatinine (test code 4.22 mg/dL 0.57-1.25 H = 2160-0) Glucose (test code = 109 mg/dL 70-105 H 2345-7) Calcium (test code = 8.4 mg/dL 8.4-10.2 15645-8) AST (test code = 17 U/L -34 1920-8) ALT (test code = 10 U/L 655 1742-6) EGFR (test code = 11 mL/min/1.[place] [address]-2) NOT ACCURATE CREATININE CLEARANCE IN PREDICTING GLOMERULAR FILTRATION RATE . ESTIMATED GFR I S NOT APPLICABLE FOR DIALYSIS PATIEN TS. BRANDI (test code = BRANDI) Inspection And Testing Supervisor ID - BS Lab Interpretation Abnormal (test code = 26113-3) [facility] [id number] 16:18:22 Test Item Value Reference Range Interpretation Comments Protein, Total (test 7.0 See_Comment [Autom ated code = 2885-2) message] The system which generated this result transmit levi reference range : 6.0 - 8.3 gm/dL . The reference range was not u sed to interpret th is result as normal/abnormal . Albumin (test code = 2.7 g/dL 3.5-5.0 L 41743-1) Alkaline Phosphatase 99 U/L 40-150 (test code = 6768-6) Total Bilirubin (test 0.4 mg/dL 0.2-1.2 code = 1974-2) Sodium (test code = 135 meq/L 136-145 L 2951-2) Potassium (test code 3.7 meq/L 3.5-5.1 = 2823-3) Chloride (test code = 100 meq/L 98-107 2074-0) CO2 (test code = 29 meq/L 2027-12) BUN (test code = 17 mg/dL 10-22 3094-0) Creatinine (test code 4.22 mg/dL 0.57-1.25 H = 2160-0) Glucose (test code = 109 mg/dL 70-105 H 2345-7) Calcium (test code = 8.4 mg/dL 8.4-10.2 57801-9) AST (test code = 17 U/L -34 1919-8) ALT (test code = 10 U/L 1741-6) EGFR (test code = 11 mL/min/1.[place] [address]-3) NOT ACCURATE CREATININE CLEARANCE IN PREDICTING GLOMERULAR FILTRATION RATE . ESTIMATED GFR I S NOT APPLICABLE FOR DIALYSIS PATIEN BRANDI (test code = BRANDI) Inspection And Testing Supervisor ID - BS Lab Interpretation Abnormal (test code = 35392-9) [facility] [id number] 16:18:22 Test Item Value Reference Range Interpretation Comments Protein, Total (test 7.0 See_Comment [Autom ated code = 2885-2) message] The system which generated this result transmit levi reference range : 6.0 - 8.3 gm/dL . The reference range was not u sed to interpret th is result as normal/abnormal . Albumin (test code = 2.7 g/dL 3.5-5.0 L 23871-8) Alkaline Phosphatase 99 U/L 40-150 (test code [...] Calcium (test code = 8.4 mg/dL 8.4-10.2 70765-4) AST (test code = 17 U/L -34 1919-8) ALT (test code = 10 U/L 1741-6) EGFR (test code = 11 mL/min/1.[place] [address]-4) NOT ACCURATE CREATININE CLEARANCE IN PREDICTING GLOMERULAR FILTRATION RATE . ESTIMATED GFR I S NOT APPLICABLE FOR DIALYSIS PATIEN TSEsvin BRANDI (test code = BRANDI) Inspection And Testing Supervisor ID - BS Lab Interpretation Abnormal (test code = 46586-0) [facility] [id number] 16:18:22 Test Item Value Reference Range Interpretation Comments Protein, Total (test 7.0 See_Comment [Autom ated code = 2885-2) message] The system which generated this result transmit levi reference range : 6.0 - 8.3 gm/dL . The reference range was not u sed to interpret th is result as normal/abnormal . Albumin (test code = 2.7 g/dL 3.5-5.0 L 41071-7) Alkaline Phosphatase 99 U/L 40-150 (test code [...] Calcium (test code = 8.4 mg/dL 8.4-10.2 00225-3) AST (test code = 17 U/L 5-34 1920-8) ALT (test code = 10 U/L 6-55 1742-6) EGFR (test code = 11 mL/min/1.[place] [address]-4) NOT ACCURATE CREATININE CLEARANCE IN PREDICTING GLOMERULAR FILTRATION RATE . ESTIMATED GFR I S NOT APPLICABLE FOR DIALYSIS PATIEN TSEsvin BRANDI (test code = BRANDI) Inspection And Testing Supervisor ID - BS Lab Interpretation Abnormal (test code = 20586-6) [facility] [id number] 16:18:22 Test Item Value Reference Range Interpretation Comments Protein, Total (test 7.0 See_Comment [Autom ated code = 2885-2) message] The system which generated this result transmit levi reference range : 6.0 - 8.3 gm/dL . The reference range was not u sed to interpret th is result as normal/abnormal . Albumin (test code = 2.7 g/dL 3.5-5.0 L 07788-6) Alkaline Phosphatase 99 U/L 40-150 (test code [...] Calcium (test code = 8.4 mg/dL 8.4-10.2 10462-1) AST (test code = 17 U/L 5-34 1920-8) ALT (test code = 10 U/L 6-55 1742-6) EGFR (test code = 11 mL/min/1.[place] [address]-4) NOT ACCURATE CREATININE CLEARANCE IN PREDICTING GLOMERULAR FILTRATION RATE . ESTIMATED GFR I S NOT APPLICABLE FOR DIALYSIS PATIEN TS. BRANDI (test code = BRANDI) Inspection And Testing Supervisor ID - BS Lab Interpretation Abnormal (test code = 26038-2) [facility] [id number] 16:18:22 Test Item Value Reference Range Interpretation [...] S NOT APPLICABLE FOR DIALYSIS PATIEN TS. Inspection And Testing Supervisor ID - [id number] 16:17:20 Test Item Value Reference Range Interpretation Comments MAGNESIUM (BEAKER) (test code = 1.8 mg/dL 1.6-2.6 627) Inspection And Testing Supervisor ID - [id number] 16:10:37 Test Item Value Reference Range Interpretation Comments PARTIAL THROMBOPLASTIN TIME 34.5 seconds 22.5-36.0 (BEAKER) (test code = 760) PROTHROMBIN TIME/[id number] 16:10:03 Test Item Value Reference Range Interpretation Comments PROTIME (BEAKER) 17.2 seconds 11.9-14.2 H (test code = 759) INR (BEAKER) (test 1.43 See_Comment [Automat ed message] code = 370) The system IAMINTOIT generated this result transmitted ref erence range: [...] (BEAKER) (test code = 2801) NV, ANGIOGRAM, [id number] 09:13:00Reason for exam:->mycotic aneurysm rule [facility] : 1955 Sex: FFINAL REPORT DATE OF PROCEDURE: 06/16/2021 SURGEON: Mili Kent MD SALVAGE MACHINE OPERATOR: Eloy Portillo MD; Alisa Monae MD PREOPERATIVE DIAGNOSIS: Subarachnoid hemorrhage POST OPERATIVE DIAGNOSIS: Nonaneurysmal subarachnoid hemorrhage PROCEDURE: Diagnostic cerebral injury ANESTHESIA: Monitored anesthesia ESTIMATED BLOOD LOSS: Minimal COMPLICATIONS: None Vessels catheterize d:Right common femoral arteryRight common carotid artery, cervicalRight common carotid, cerebralLeftcommon carotid artery, cervicalLeft common carotid, cerebralLeft vertebral artery *FEMORAL*5F sheathBentson WireVertebral CatheterTerumo Parkin wireMynx Closure Device INDICATIONS: The patient is [...] arteries are patent. There is a right [place]OD LAYUP LINE CORE LAYER variant anatomy. No evidence of aneurysm, vascular [...] ARTERY (DSA - AP, LATERAL - CERVI YOEL) The catheter was used to select the [...] cerebral artery is diminutive in size given PL[place] LAYUP LINE CORE LAYER anatomy and the the left [place]OD LAYUP LINE CORE LAYER is normal in caliber and contour. No [...] MDReport Verified Date/Time: 06/17/2021 09:13:43 Reading Location: [facility] Y026 Neuro Angio Reading Room BASIC METABOLIC [id number] 05:09:41 Test Item Value Reference Range Interpretation [...] S NOT APPLICABLE FOR DIALYSIS PATIEN TS. Inspection And Testing Supervisor ID - HIEN [id number] 05:07:06 Test Item Value Reference Range Interpretation Comments MAGNESIUM (BEAKER) (test code = 2.1 mg/dL 1.6-2.6 627) Inspection And Testing Supervisor ID - HIEN [id number] 05:07:06 Test Item Value Reference Range Interpretation Comments PHOSPHORUS (BEAKER) (test code = 5.7 mg/dL 2.3-4.7 H 604) Inspection And Testing Supervisor ID - HIEN [facility] W/PLT COUNT & AUTO [id number] 04:38:56 Test Item Value Reference Range Interpretation [...] PERCENT (BEAKER) (test code = 2801) POCT-GLUCOSE [id number] 00:10:32 Test Item Value Reference Range Interpretation Comments POC-GLUCOSE METER 221 mg/dL 70-110 H : TESTED A T [facility] 6720 (BEAKER) (test code = [facility], 1538) [address]362: Inspection And Testing Supervisor/Techni kelle ID = [id number] for SHAHLA BARRY POCT-GLUCOSE [id number] 18:11:32 Test Item Value Reference Range Interpretation Comments POC-GLUCOSE METER 170 mg/dL 70-110 H : TESTED A T [facility] 6720 (BEAKER) (test code = [facility], 153) 15396: Inspection And Testing Supervisor/Techni kelle ID = [id number] for An Onelia ramirez Blood [id number] 14:00:39 Test Item Value Reference Range Interpretation Comments Result (test code = No growth in 5 days 6463-4) [id number] 14:00:39 Test Item Value Reference Range Interpretation Comments Result (test code = No growth in 5 days 6463-4) [facility] [id number] 14:00:39 Test Item Value Reference Range Interpretation Comments Result (test code = No growth in 5 days 6463-4) [facility] [id number] 14:00:39 Test Item Value Reference Range Interpretation Comments Result (test code = No growth in 5 days 6463-4) [facility] [id number] 14:00:39 Test Item Value Reference Range Interpretation Comments Result (test code = No growth in 5 days 6463-4) [facility]2022-03-15 14:00:39 Test Item Value Reference Range Interpretation Comments Result (test code = No growth in 5 days 6463-4) [facility]2022-03-15 14:00:39 Test Item Value Reference Range Interpretation Comments Result (test code = No growth in 5 days 6463-4) [facility]2022-03-15 14:00:39 Test Item Value Reference Range Interpretation Comments Result (test code = No growth in 5 days 6463-4) [facility]2022-03-15 14:00:39 Test Item Value Reference Range Interpretation Comments Result (test code = No growth in 5 days 6463-4) [facility]2022-03-15 14:00:39 Test Item Value Reference Range Interpretation Comments Result (test code = No growth in 5 days 6463-4) [facility]2022-03-15 14:00:39 Test Item Value Reference Range Interpretation Comments Result (test code = No growth in 5 days 6463-4) [facility]2022-03-15 14:00:39 Test Item Value Reference Range Interpretation Comments Result (test code = No growth in 5 days 6463-4) [facility]2022-03-15 14:00:39 Test Item Value Reference Range Interpretation Comments CULTURE (BEAKER) (test No growth in 5 days code = 1095) MR, BRAIN, WITHOUT [id number] 13:02:00Pt has [employer] ESSENTIO MRI L111/ [id number] Unlisted Reason for Exam - Click Yes and Enter Reason Below- >No Deos the patient have an implanted electronic device?->Yes [employer] ESSENTIO MRI L111/ [id number] [facility] 1955 Sex: FFINAL REPORT MR, [...] suppression of the sulci. Signed: Bayron Cosme MDReport Verified Date/Time: 06/16/2021 13:02:07 Reading Location: [address] Neuro Reading Room BLOOD [id number] 08:00:27 Test Item Value Reference Range Interpretation Comments CULTURE (BEAKER) (test No growth in 5 days code = 1095) POCT-GLUCOSE [id number] 07:30:10 Test Item Value Reference Range Interpretation Comments POC-GLUCOSE METER 159 mg/dL 70-110 H : TESTED [facility] T [facility] 6720 (BEAKER) (test code = [facility], 1538) [address]: Inspection And Testing Supervisor/Techni kelle ID = [id number] for Onelia Lorenz BASIC METABOLIC [id number] 05:42:18 Test Item Value Reference Range Interpretation [...] S NOT APPLICABLE FOR DIALYSIS PATIEN TS. Inspection And Testing Supervisor ID - RAKAN [id number] 05:35:31 Test Item Value Reference Range Interpretation Comments MAGNESIUM (BEAKER) (test code = 2.1 mg/dL 1.6-2.6 627) Inspection And Testing Supervisor ID Bassam RAKAN [id number] 05:35:31 Test Item Value Reference Range Interpretation Comments PHOSPHORUS (BEAKER) (test code = 4.5 mg/dL 2.3-4.7 604) Inspection And Testing Supervisor ID Bassam RAKAN [facility] W/PLT COUNT & AUTO [id number] 04:43:33 Test Item Value Reference Range Interpretation [...] PERCENT (BEAKER) (test code = 2801) BLOOD [id number] 00:00:28 Test Item Value Reference Range Interpretation Comments CULTURE (BEAKER) (test No growth in 5 days code = 1095) The specimen volume collected for this blood culture was below the optimum (10 mL per bottle or 20 mL total). Use of lower volumes may adversely affect recovery and/or detection times of some organisms.POCT-GLUCOSE [id number] 21:39:58 Test Item Value Reference Range Interpretation Comments POC-GLUCOSE METER 173 mg/dL 70-110 H : Notified RN/MD: (BEAKER) (test code = TESTED AT [facility] 6720 1538) [facility], [address]: Inspection And Testing Supervisor/Techni kelle ID = [id number] for DE NNIS, EMANUEL Hepatic function [id number] 15:52:11 Test Item Value Reference Range Interpretation Comments Protein, Total (test 6.8 See_Comment [Autom ated code = 2885-2) message] The system which generated this result transmit levi reference range : 6.0 - 8.3 gm/dL . The reference range was not u sed to interpret th is result as normal/abnormal . Albumin (test code = 2.6 g/dL 3.5-5.0 L 30746-1) Total Bilirubin (test 0.3 mg/dL 0.2-1.2 code = 1974-) Bilirubin, Direct 0.2 mg/dL 0.1-0.5 (test code = 1967-) Alkaline Phosphatase 90 U/L 40-150 (test code = 6768-6) AST (test code = 17 U/L 192-8) ALT (test code = 11 U/L 1742-6) BRANDI (test code = BRANDI) Inspection And Testing Supervisor ID - PIAYA L Lab Interpretation Abnormal (test code = 67809-6) [facility] [id number] 15:52:11 Test Item Value Reference Range Interpretation Comments Protein, Total (test 6.8 See_Comment [Autom ated code = 2885-2) message] The system which generated this result transmit levi reference range : 6.0 - 8.3 gm/dL . The reference range was not u sed to interpret th is result as normal/abnormal . Albumin (test code = 2.6 g/dL 3.5-5.0 L 24995-8) Total Bilirubin (test 0.3 mg/dL 0.2-1.2 code = 1974-) Bilirubin, Direct 0.2 mg/dL 0.1-0.5 (test code = 1967-) Alkaline Phosphatase 90 U/L 40-150 (test code = 6768-6) AST (test code = 17 U/L 5-34 1920-8) ALT (test code = 11 U/L 55 1742-6) BRANDI (test code = BRANDI) Inspection And Testing Supervisor ID - PIAYA L Lab Interpretation Abnormal (test code = 19798-5) [facility] [id number] 15:52:11 Test Item Value Reference Range Interpretation Comments Protein, Total (test 6.8 See_Comment [Autom ated code = 2885-2) message] The system which generated this result transmit levi reference range : 6.0 - 8.3 gm/dL . The reference range was not u sed to interpret th is result as normal/abnormal . Albumin (test code = 2.6 g/dL 3.5-5.0 L 21215-5) Total Bilirubin (test 0.3 mg/dL 0.2-1.2 code = 1974-2) Bilirubin, Direct 0.2 mg/dL 0.1-0.5 (test code = 1967-7) Alkaline Phosphatase 90 U/L 40-150 (test code = 6768-6) AST (test code = 17 U/L - 192-8) ALT (test code = 11 U/L 1742-6) BRANDI (test code = BRANDI) Inspection And Testing Supervisor ID - PIAYA L Lab Interpretation Abnormal (test code = 75841-9) [facility] [id number] 15:52:11 Test Item Value Reference Range Interpretation Comments Protein, Total (test 6.8 See_Comment [Autom ated code = 2885-2) message] The system which generated this result transmit levi reference range : 6.0 - 8.3 gm/dL . The reference range was not u sed to interpret th is result as normal/abnormal . Albumin (test code = 2.6 g/dL 3.5-5.0 L 27258-8) Total Bilirubin (test 0.3 mg/dL 0.2-1.2 code = 1974-2) Bilirubin, Direct 0.2 mg/dL 0.1-0.5 (test code = 1967-7) Alkaline Phosphatase 90 U/L 40-150 (test code = 6768-6) AST (test code = 17 U/L 1920-8) ALT (test code = 11 U/L 6 1742-6) BRANDI (test code = BRANDI) Inspection And Testing Supervisor ID - PIAYA L Lab Interpretation Abnormal (test code = 63183-8) [facility] [id number] 15:52:11 Test Item Value Reference Range Interpretation Comments Protein, Total (test 6.8 See_Comment [Autom ated code = 2885-2) message] The system which generated this result transmit levi reference range : 6.0 - 8.3 gm/dL . The reference range was not u sed to interpret th is result as normal/abnormal . Albumin (test code = 2.6 g/dL 3.5-5.0 L 21849-6) Total Bilirubin (test 0.3 mg/dL 0.2-1.2 code = 1974-2) Bilirubin, Direct 0.2 mg/dL 0.1-0.5 (test code = 1967-7) Alkaline Phosphatase 90 U/L 40-150 (test code = 6768-6) AST (test code = 17 U/L 5-34 1920-8) ALT (test code = 11 U/L 6-55 1742-6) BRANDI (test code = BRANDI) Inspection And Testing Supervisor ID - LIANA L Lab Interpretation Abnormal (test code = 02081-6) [facility] [id number] 15:52:11 Test Item Value Reference Range Interpretation Comments Protein, Total (test 6.8 See_Comment [Autom ated code = 2885-2) message] The system which generated this result transmit levi reference range : 6.0 - 8.3 gm/dL . The reference range was not u sed to interpret th is result as normal/abnormal . Albumin (test code = 2.6 g/dL 3.5-5.0 L 12262-4) Total Bilirubin (test 0.3 mg/dL 0.2-1.2 code = 1974-) Bilirubin, Direct 0.2 mg/dL 0.1-0.5 (test code = 1967-) Alkaline Phosphatase 90 U/L 40-150 (test code = 6768-6) AST (test code = 17 U/L 5-34 1920-8) ALT (test code = 11 U/L 6-55 1742-6) BRANDI (test code = BRANDI) Inspection And Testing Supervisor ID - PIAYA L Lab Interpretation Abnormal (test code = 86685-2) [facility] [id number] 15:52:11 Test Item Value Reference Range Interpretation Comments Protein, Total (test 6.8 See_Comment [Autom ated code = 2885-2) message] The system which generated this result transmit levi reference range : 6.0 - 8.3 gm/dL . The reference range was not u sed to interpret th is result as normal/abnormal . Albumin (test code = 2.6 g/dL 3.5-5.0 L 16265-8) Total Bilirubin (test 0.3 mg/dL 0.2-1.2 code = 1974-2) Bilirubin, Direct 0.2 mg/dL 0.1-0.5 (test code = 1967-7) Alkaline Phosphatase 90 U/L 40-150 (test code = 6768-6) AST (test code = 17 U/L 1920-8) ALT (test code = 11 U/L 1742-6) BRANDI (test code = BRANDI) Inspection And Testing Supervisor ID - PIAYA L Lab Interpretation Abnormal (test code = 35830-7) [facility] [id number] 15:52:11 Test Item Value Reference Range Interpretation Comments Protein, Total (test 6.8 See_Comment [Autom ated code = 2885-2) message] The system which generated this result transmit levi reference range : 6.0 - 8.3 gm/dL . The reference range was not u sed to interpret th is result as normal/abnormal . Albumin (test code = 2.6 g/dL 3.5-5.0 L 08668-4) Total Bilirubin (test 0.3 mg/dL 0.2-1.2 code = 1974-) Bilirubin, Direct 0.2 mg/dL 0.1-0.5 (test code = 1967-7) Alkaline Phosphatase 90 U/L 40-150 (test code = 6768-6) AST (test code = 17 U/L 192-8) ALT (test code = 11 U/L 1742-6) BRANDI (test code = BRANDI) Inspection And Testing Supervisor ID - PIAYA L Lab Interpretation Abnormal (test code = 90613-4) [facility] [id number] 15:52:11 Test Item Value Reference Range Interpretation Comments Protein, Total (test 6.8 See_Comment [Autom ated code = 2885-2) message] The system which generated this result transmit levi reference range : 6.0 - 8.3 gm/dL . The reference range was not u sed to interpret th is result as normal/abnormal . Albumin (test code = 2.6 g/dL 3.5-5.0 L 20355-0) Total Bilirubin (test 0.3 mg/dL 0.2-1.2 code = 1974-05) Bilirubin, Direct 0.2 mg/dL 0.1-0.5 (test code = 1967-10) Alkaline Phosphatase 90 U/L 40-150 (test code = 6768-6) AST (test code = 17 U/L 192-8) ALT (test code = 11 U/L 174-6) BRANDI (test code = BRANDI) Inspection And Testing Supervisor ID - PIAYA L Lab Interpretation Abnormal (test code = 16309-7) [facility] [id number] 15:52:11 Test Item Value Reference Range Interpretation Comments Protein, Total (test 6.8 See_Comment [Autom ated code = 2885-2) message] The system which generated this result transmit levi reference range : 6.0 - 8.3 gm/dL . The reference range was not u sed to interpret th is result as normal/abnormal . Albumin (test code = 2.6 g/dL 3.5-5.0 L 35999-1) Total Bilirubin (test 0.3 mg/dL 0.2-1.2 code = 1974-05) Bilirubin, Direct 0.2 mg/dL 0.1-0.5 (test code = 1967-10) Alkaline Phosphatase 90 U/L 40-150 (test code = 6768-6) AST (test code = 17 U/L 34 1920-8) ALT (test code = 11 U/L 1742-6) BRANDI (test code = BRANDI) Inspection And Testing Supervisor ID - PIAYA L Lab Interpretation Abnormal (test code = 21354-9) [facility] [id number] 15:52:11 Test Item Value Reference Range Interpretation Comments Protein, Total (test 6.8 See_Comment [Autom ated code = 2885-2) message] The system which generated this result transmit levi reference range : 6.0 - 8.3 gm/dL . The reference range was not u sed to interpret th is result as normal/abnormal . Albumin (test code = 2.6 g/dL 3.5-5.0 L 26521-8) Total Bilirubin (test 0.3 mg/dL 0.2-1.2 code = 1974-) Bilirubin, Direct 0.2 mg/dL 0.1-0.5 (test code = 1967-) Alkaline Phosphatase 90 U/L 40-150 (test code = 6768-6) AST (test code = 17 U/L 192-8) ALT (test code = 11 U/L 1742-6) BRANDI (test code = BRANDI) Inspection And Testing Supervisor ID - PIAYA L Lab Interpretation Abnormal (test code = 04733-6) [facility] [id number] 15:52:11 Test Item Value Reference Range Interpretation Comments Protein, Total (test 6.8 See_Comment [Autom ated code = 2885-2) message] The system which generated this result transmit levi reference range : 6.0 - 8.3 gm/dL . The reference range was not u sed to interpret th is result as normal/abnormal . Albumin (test code = 2.6 g/dL 3.5-5.0 L 17734-5) Total Bilirubin (test 0.3 mg/dL 0.2-1.2 code = 1974-) Bilirubin, Direct 0.2 mg/dL 0.1-0.5 (test code = 1967-) Alkaline Phosphatase 90 U/L 40-150 (test code = 6768-6) AST (test code = 17 U/L 1919-8) ALT (test code = 11 U/L 1742-6) BRANDI (test code = BRANDI) Inspection And Testing Supervisor ID - PIAYA L Lab Interpretation Abnormal (test code = 64983-7) [facility] [id number] 15:52:11 Test Item Value Reference Range Interpretation Comments TOTAL PROTEIN (BEAKER) (test code = 6.8 gm/dL 6.0-8.3 770) ALBUMIN (BEAKER) (test code = 1145) 2.6 g/dL 3.5-5.0 L BILIRUBIN TOTAL (BEAKER) (test code 0.3 mg/dL 0.2-1.2 = 377) BILIRUBIN DIRECT (BEAKER) (test 0.2 mg/dL 0.1-0.5 code = 706) ALKALINE PHOSPHATASE (BEAKER) (test 90 U/L 40-150 code = 346) AST (SGOT) (AKASH) (test code = 17 U/L 5-34 353) ALT (SGPT) (NABILAKER) (test code = 11 U/L 6-55 347) Inspection And Testing Supervisor ID Bassam GAINES LHeparin [id number] 12:21:31 Test Item Value Reference Range Interpretation Comments Heparin Ab (test code Negative Negative = 3267-2) Heparin Antibody 0.247 <0.400 Optical Density (test code = 2659) 4T Total Score (test 4 code = 2661) BRANDI (test code = BRANDI) Probability of HIT based on scoring system: 6-8 = High probability; 4-5 = intermediate probability; 0-3 = low probability [facility] [id number] 12:21:31 Test Item Value Reference Range Interpretation Comments Heparin Ab (test code Negative Negative = 3267-2) Heparin Antibody 0.247 <0.400 Optical Density (test code = 2659) 4T Total Score (test 4 code = 2661) BRANDI (test code = BRANDI) Probability of HIT based on scoring system: 6-8 = High probability; 4-5 = intermediate probability; 0-3 = low probability [facility] [id number] 12:21:31 Test Item Value Reference Range Interpretation Comments Heparin Ab (test code Negative Negative = 3267-2) Heparin Antibody 0.247 <0.400 Optical Density (test code = 2659) 4T Total Score (test 4 code = 2661) BRANDI (test code = BRANDI) Probability of HIT based on scoring system: 6-8 = High probability; 4-5 = intermediate probability; 0-3 = low probability [facility] [id number] 12:21:31 Test Item Value Reference Range Interpretation Comments Heparin Ab (test code Negative Negative = 3267-2) Heparin Antibody 0.247 <0.400 Optical Density (test code = 2659) 4T Total Score (test 4 code = 2661) BRANDI (test code = BRANDI) Probability of HIT based on scoring system: 6-8 = High probability; 4-5 = intermediate probability; 0-3 = low probability [facility] [id number] 12:21:31 Test Item Value Reference Range Interpretation Comments Heparin Ab (test code Negative Negative = 3267-2) Heparin Antibody 0.247 <0.400 Optical Density (test code = 2659) 4T Total Score (test 4 code = 2661) BRANDI (test code = BRANDI) Probability of HIT based on scoring system: 6-8 = High probability; 4-5 = intermediate probability; 0-3 = low probability [facility] [id number] 12:21:31 Test Item Value Reference Range Interpretation Comments Heparin Ab (test code Negative Negative = 3267-2) Heparin Antibody 0.247 <0.400 Optical Density (test code = 2659) 4T Total Score (test 4 code = 2661) BRANDI (test code = BRANDI) Probability of HIT based on scoring system: 6-8 = High probability; 4-5 = intermediate probability; 0-3 = low probability [facility] [id number] 12:21:31 Test Item Value Reference Range Interpretation Comments Heparin Ab (test code Negative Negative = 3267-2) Heparin Antibody 0.247 <0.400 Optical Density (test code = 2659) 4T Total Score (test 4 code = 2661) BRANDI (test code = BRANDI) Probability of HIT based on scoring system: 6-8 = High probability; 4-5 = intermediate probability; 0-3 = low probability [facility] [id number] 12:21:31 Test Item Value Reference Range Interpretation Comments Heparin Ab (test code Negative Negative = 3267-2) Heparin Antibody 0.247 <0.400 Optical Density (test code = 2659) 4T Total Score (test 4 code = 2661) BRANDI (test code = BRANDI) Probability of HIT based on scoring system: 6-8 = High probability; 4-5 = intermediate probability; 0-3 = low probability [facility] [id number] 12:21:31 Test Item Value Reference Range Interpretation Comments Heparin Ab (test code Negative Negative = 3267-2) Heparin Antibody 0.247 <0.400 Optical Density (test code = 2659) 4T Total Score (test 4 code = 2661) BRANDI (test code = BRANDI) Probability of HIT based on scoring system: 6-8 = High probability; 4-5 = intermediate probability; 0-3 = low probability [facility] [id number] 12:21:31 Test Item Value Reference Range Interpretation Comments Heparin Ab (test code Negative Negative = 3267-2) Heparin Antibody 0.247 <0.400 Optical Density (test code = 2659) 4T Total Score (test 4 code = 2661) BRANDI (test code = BRANDI) Probability of HIT based on scoring system: 6-8 = High probability; 4-5 = intermediate probability; 0-3 = low probability [facility] [id number] 12:21:31 Test Item Value Reference Range Interpretation Comments Heparin Ab (test code Negative Negative = 3267-2) Heparin Antibody 0.247 <0.400 Optical Density (test code = 2659) 4T Total Score (test 4 code = 2661) BRANDI (test code = BRANDI) Probability of HIT based on scoring system: 6-8 = High probability; 4-5 = intermediate probability; 0-3 = low probability [facility] olmiszmz6422-02-04 12:21:31 Test Item Value Reference Range Interpretation Comments Heparin Ab (test code Negative Negative = 3267-2) Heparin Antibody 0.247 <0.400 Optical Density (test code = 2659) 4T Total Score (test 4 code = 2661) BRANDI (test code = BRANDI) Probability of HIT based on scoring system: 6-8 = High probability; 4-5 = intermediate probability; 0-3 = low probability [facility] [id number] 12:21:31 Test Item Value Reference Range Interpretation Comments HEPARIN ANTIBODY (BEAKER) (test code Negative Negative = 646) HEPARIN ANTIBODY OD (BEAKER) (test 0.247 <0.400 code = 2659) 4T TOTAL SCORE (BEAKER) (test code = 4 2661) Probability of HIT based on scoring system: 6-8 = High probability; 4-5 = intermediate probability;0-3 = low probabilityABORH, [id number] 08:07:00 Test Item Value Reference Range Interpretation Comments ABO Grouping (test code = 2588) O Rh Factor (test code = 2589) POS [facility], [id number] 08:07:00 Test Item Value Reference Range Interpretation Comments ABO Grouping (test code = 2588) O Rh Factor (test code = 2589) [facility], [id number] 08:07:00 Test Item Value Reference Range Interpretation Comments ABO Grouping (test code = 2588) O Rh Factor (test code = 2589) [facility], [id number] 08:07:00 Test Item Value Reference Range Interpretation Comments ABO Grouping (test code = 2588) O Rh Factor (test code = 2589) [facility], [id number] 08:07:00 Test Item Value Reference Range Interpretation Comments ABO Grouping (test code = 2588) O Rh Factor (test code = 2589) [facility], [id number] 08:07:00 Test Item Value Reference Range Interpretation Comments ABO Grouping (test code = 2588) O Rh Factor (test code = 2589) [facility], [id number] 08:07:00 Test Item Value Reference Range Interpretation Comments ABO Grouping (test code = 2588) O Rh Factor (test code = 2589) [facility], [id number] 08:07:00 Test Item Value Reference Range Interpretation Comments ABO Grouping (test code = 2588) O Rh Factor (test code = 2589) [facility], [id number] 08:07:00 Test Item Value Reference Range Interpretation Comments ABO Grouping (test code = 2588) O Rh Factor (test code = 2589) [facility], [id number] 08:07:00 Test Item Value Reference Range Interpretation Comments ABO Grouping (test code = 2588) O Rh Factor (test code = 2589) [facility], [id number] 08:07:00 Test Item Value Reference Range Interpretation Comments ABO Grouping (test code = 2588) O Rh Factor (test code = 2589) [facility], [id number] 08:07:00 Test Item Value Reference Range Interpretation Comments ABO Grouping (test code = 2588) O Rh Factor (test code = 2589) [facility] [id number] 05:19:52 Test Item Value Reference Range Interpretation [...] S NOT APPLICABLE FOR DIALYSIS PATIEN TS. Inspection And Testing Supervisor ID - LIANA EWDSXEKWQDA5450-03-56 05:09:04 Test Item Value Reference Range Interpretation Comments PHOSPHORUS (BEAKER) (test code = 4.1 mg/dL 2.3-4.7 604) Inspection And Testing Supervisor ID - LIANA KUETGBDRLG2971-44-71 05:09:03 Test Item Value Reference Range Interpretation Comments MAGNESIUM (BEAKER) (test code = 2.0 mg/dL 1.6-2.6 627) Inspection And Testing Supervisor ID - LIANA LPT/dKNY5529-57-71 04:53:34 Test Item Value Reference Interpretation Comments Range Protime (test code = 13.7 See_Comment [Autom ated 5902-2) message] The system which generated this result transmitted reference range : 11.9 - 14.2 seconds. The reference range was not used to interpret this result as normal/abnormal . INR (test code = 1.07 See_Comment [Automated 4131-6) message] The system which generated this result transmitted reference range : <=5.90. The reference range was not used to interpret this result as normal/abnormal . PTT (test code = 32.5 See_Comment [Automated 63184-9) message] The system which generated this result [...] valves. Lab Interpretation Normal (test code = 00715-4) [facility][id number] 04:53:34 Test Item Value Reference Interpretation Comments Range Protime (test code = 13.7 See_Comment [Autom [employer] [place]2-2) message] The system which generated this result transmitted reference range : 11.9 - 14.2 seconds. The reference range was not used to interpret this result as normal/abnormal . INR (test code = 1.07 See_Comment [Automated [employer]6) message] The system which generated this result transmitted reference range : <=5.90. The reference range was not used to interpret this result as normal/abnormal . PTT (test code = 32.5 See_Comment [Cerel[employer] 14161-4) message] The system which generated this result [...] valves. Lab Interpretation Normal (test code = 57635-5) [facility]/[id number] 04:53:34 Test Item Value Reference Interpretation Comments Range Protime (test code = 13.7 See_Comment [Autom [employer] 5902-2) message] The system which generated this result transmitted reference range : 11.9 - 14.2 seconds. The reference range was not used to interpret this result as normal/abnormal . INR (test code = 1.07 See_Comment [Automated Doppel[employer]1-6) message] The system which generated this result transmitted reference range : <=5.90. The reference range was not used to interpret this result as normal/abnormal . PTT (test code = 32.5 See_Comment [Automated 18713-9) message] The system which generated this result [...] valves. Lab Interpretation Normal (test code = 64962-3) [facility]/[id number] 04:53:34 Test Item Value Reference Interpretation Comments Range Protime (test code = 13.7 See_Comment [Autom ated 5902-2) message] The system which generated this result transmitted reference range : 11.9 - 14.2 seconds. The reference range was not used to interpret this result as normal/abnormal . INR (test code = 1.07 See_Comment [Automated 1091-6) message] The system which generated this result transmitted reference range : <=5.90. The reference range was not used to interpret this result as normal/abnormal . PTT (test code = 32.5 See_Comment [Automated 37836-3) message] The system which generated this result [...] valves. Lab Interpretation Normal (test code = 72142-9) [facility]fRUM5514-38-44 04:53:34 Test Item Value Reference Interpretation Comments [...] PTT (test code = 32.5 See_Comment [Automated 99621-7) message] The system which generated this result [...] valves. Lab Interpretation Normal (test code = 39336-7) [facility]/yFOK3906-10-46 04:53:34 Test Item Value Reference Interpretation Comments [...] PTT (test code = 32.5 See_Comment [Automated 63048-0) message] The system which generated this result [...] valves. Lab Interpretation Normal (test code = 69788-1) [facility]uEPO2600-63-05 04:53:34 Test Item Value Reference Interpretation Comments [...] PTT (test code = 32.5 See_Comment [Automated 50622-5) message] The system which generated this result [...] valves. Lab Interpretation Normal (test code = 26395-0) [facility]/xWEO6313-42-90 04:53:34 Test Item Value Reference Interpretation Comments [...] PTT (test code = 32.5 See_Comment [Automated 13834-5) message] The system which generated this result [...] valves. Lab Interpretation Normal (test code = 50515-5) [facility]/wFRK4285-15-68 04:53:34 Test Item Value Reference Interpretation Comments [...] PTT (test code = 32.5 See_Comment [Automated 35262-7) message] The system which generated this result [...] valves. Lab Interpretation Normal (test code = 73592-9) [facility]/vASN6089-73-42 04:53:34 Test Item Value Reference Interpretation Comments [...] PTT (test code = 32.5 See_Comment [Automated 07681-9) message] The system which generated this result [...] valves. Lab Interpretation Normal (test code = 08984-2) [facility]/jWDI6968-90-36 04:53:34 Test Item Value Reference Interpretation Comments [...] PTT (test code = 32.5 See_Comment [Automated 51233-9) message] The system which generated this result [...] valves. Lab Interpretation Normal (test code = 88352-6) [facility]/sQEX1788-38-80 04:53:34 Test Item Value Reference Interpretation Comments [...] PTT (test code = 32.5 See_Comment [Automated 05254-9) message] The system which generated this result [...] valves. Lab Interpretation Normal (test code = 81131-2) [facility]/OTVZ8757-59-03 04:53:34 Test Item Value Reference Range Interpretation [...] PERCENT (BEAKER) (test code = 2801) POCT-GLUCOSE [id number] 11:21:11 Test Item Value Reference Range Interpretation Comments POC-GLUCOSE METER 204 mg/dL 70-110 H : TESTED A T [facility] 6720 (BEAKER) (test code = [facility], 153) [address]: Inspection And Testing Supervisor/Techni kelle ID = [id number] for Ag uilar Meeta POCT-GLUCOSE [id number] 07:42:50 Test Item Value Reference Range Interpretation Comments POC-GLUCOSE METER 226 mg/dL 70-110 H : TESTED A T [facility] 6720 (BEAKER) (test code = [facility], 1538) 93390: Inspection And Testing Supervisor/Techni kelle ID = [id number] for Ag uilar, Meeta BASIC METABOLIC [id number] 05:13:30 Test Item Value Reference Range Interpretation [...] S NOT APPLICABLE FOR DIALYSIS PATIEN TS. Inspection And Testing Supervisor ID - LIANA XABGENVTXRW5286-03-89 05:11:53 Test Item Value Reference Range Interpretation Comments PHOSPHORUS (BEAKER) (test code = 3.3 mg/dL 2.3-4.7 604) Inspection And Testing Supervisor ID - LIANA AJKMWKFSQX9491-38-02 05:11:52 Test Item Value Reference Range Interpretation Comments MAGNESIUM (BEAKER) (test code = 2.0 mg/dL 1.6-2.6 627) Inspection And Testing Supervisor ID - LIANA LCBC W/PLT COUNT & AUTO OSEWDMHTEUHA7339-51-88 04:23:17 Test Item Value Reference Range Interpretation [...] PERCENT (BEAKER) (test code = 2801) POCT-GLUCOSE [id number] 17:21:48 Test Item Value Reference Range Interpretation Comments POC-GLUCOSE METER 209 mg/dL 70-110 H : TESTED A T [facility] 67[facility] (BEAKER) (test code = [facility], 1538) 81811: Inspection And Testing Supervisor/Techni kelle ID = [id number] for PADMINI ALMANZAR POCT-GLUCOSE [id number] 12:56:45 Test Item Value Reference Range Interpretation Comments POC-GLUCOSE METER 81 mg/dL 70-110 : TESTED A T [facility] 67[address] (AKASH) (test code = [facility], 1538) 14310: Inspection And Testing Supervisor/Techni kelle ID = [id number] for PADMINI GRAY Dsdmbgjq9891-38-33 09:21:04 Test Item Value Reference Range Interpretation Comments Ferritin (test code = 1418.54 ng/mL 5.00-275.00 H 2276-4) BRANDI (test code = BRANDI) Inspection And Testing Supervisor ID - HIEN M Lab Interpretation (test Abnormal code = 85286-7) [facility]ritin[facility] 09:21:04 Test Item Value Reference Range Interpretation Comments Ferritin (test code = 1418.54 ng/mL 5.00-275.00 H 2276-4) BRANDI (test code = BRANDI) Inspection And Testing Supervisor ID - HIEN M Lab Interpretation (test Abnormal code = 09639-4) [facility] 09:21:04 Test Item Value Reference Range Interpretation Comments Ferritin (test code = 1418.54 ng/mL 5.00-275.00 H 2276-4) BRANDI (test code = BRANDI) Inspection And Testing Supervisor ID - HIEN M Lab Interpretation (test Abnormal code = 88589-6) [facility] 09:21:04 Test Item Value Reference Range Interpretation Comments Ferritin (test code = 1418.54 ng/mL 5.00-275.00 H 2276-4) BRANDI (test code = BRANDI) Inspection And Testing Supervisor ID - HIEN M Lab Interpretation (test Abnormal code = 36552-0) [facility] 09:21:04 Test Item Value Reference Range Interpretation Comments Ferritin (test code = 1418.54 ng/mL 5.00-275.00 H 2276-4) BRANDI (test code = BRANDI) Inspection And Testing Supervisor ID - HIEN M Lab Interpretation (test Abnormal code = 50806-9) [facility] 09:21:04 Test Item Value Reference Range Interpretation Comments Ferritin (test code = 1418.54 ng/mL 5.00-275.00 H 2276-4) BRANDI (test code = BRANDI) Inspection And Testing Supervisor ID - HIEN M Lab Interpretation (test Abnormal code = 18872-3) [facility] 09:21:04 Test Item Value Reference Range Interpretation Comments Ferritin (test code = 1418.54 ng/mL 5.00-275.00 H 2276-4) BRANDI (test code = BRANDI) Inspection And Testing Supervisor ID - HIEN M Lab Interpretation (test Abnormal code = 97409-9) [facility]2022-03-12 09:21:04 Test Item Value Reference Range Interpretation Comments Ferritin (test code = 1418.54 ng/mL 5.00-275.00 H 2276-4) BRANDI (test code = BRANDI) Inspection And Testing Supervisor ID - HIEN M Lab Interpretation (test Abnormal code = 35581-8) [place] [id number] 09:21:04 Test Item Value Reference Range Interpretation Comments Ferritin (test code = 1418.54 ng/mL 5.00-275.00 H 2276-4) BRANDI (test code = BRANDI) Inspection And Testing Supervisor ID - HIEN M Lab Interpretation (test Abnormal code = 51613-1) [facility]2022-03-12 09:21:04 Test Item Value Reference Range Interpretation Comments Ferritin (test code = 1418.54 ng/mL 5.00-275.00 H 2276-4) BRANDI (test code = BRANDI) Inspection And Testing Supervisor ID - HIEN M Lab Interpretation (test Abnormal code = 90289-7) [facility]2022-03-12 09:21:04 Test Item Value Reference Range Interpretation Comments Ferritin (test code = 1418.54 ng/mL 5.00-275.00 H 2276-4) BRANDI (test code = BRANDI) Inspection And Testing Supervisor ID - HIEN M Lab Interpretation (test Abnormal code = 02876-8) [facility]2022-03-12 09:21:04 Test Item Value Reference Range Interpretation Comments Ferritin (test code = 1418.54 ng/mL 5.00-275.00 H 2276-4) BRANDI (test code = BRANDI) Inspection And Testing Supervisor ID - HIEN M Lab Interpretation (test Abnormal code = 29448-3) [place] 077312-03-12 09:21:04 Test Item Value Reference Range Interpretation Comments FERRITIN (BEAKER) (test code = 1418.54 ng/mL 5.00-275.00 H 361) Inspection And Testing Supervisor ID - HIEN [place], TIBC, % sat. (without ferritin)2021-06-13 09:01:39 Test Item Value Reference Range Interpretation Comments Iron (test code = 2498-4) 75.0 ug/dL 40.0-160.0 TIBC (test code = 2500-7) 145 ug/dL 250-450 L Iron % Saturation (test 52 % 20-55 code = 2502-3) BRANDI (test code = BRANDI) Inspection And Testing Supervisor ID - HIEN Hernandes Lab Interpretation (test Abnormal code = 02678-4) [facility], TIBC, % sat. (without ferritin)2021-06-13 09:01:39 Test Item Value Reference Range Interpretation Comments Iron (test code = 2498-4) 75.0 ug/dL 40.0-160.0 TIBC (test code = 2500-7) 145 ug/dL 250-450 L Iron % Saturation (test 52 % 20-55 code = 2502-3) BRANDI (test code = BRANDI) Inspection And Testing Supervisor ID - HIEN Hernandes Lab Interpretation (test Abnormal code = 94678-0) [facility], TIBC, % sat. (without ferritin)2021-06-13 09:01:39 Test Item Value Reference Range Interpretation Comments Iron (test code = 2498-4) 75.0 ug/dL 40.0-160.0 TIBC (test code = 2500-7) 145 ug/dL 250-450 L Iron % Saturation (test 52 % 20-55 code = 2502-3) BRANDI (test code = BRANDI) Inspection And Testing Supervisor ID - HIEN Hernandes Lab Interpretation (test Abnormal code = 18878-8) [facility], TIBC, % sat. (without ferritin)2021-06-13 09:01:39 Test Item Value Reference Range Interpretation Comments Iron (test code = 2498-4) 75.0 ug/dL 40.0-160.0 TIBC (test code = 2500-7) 145 ug/dL 250-450 L Iron % Saturation (test 52 % 20-55 code = 2502-3) BRANDI (test code = BRANDI) Inspection And Testing Supervisor ID - HIEN M Lab Interpretation (test Abnormal code = 30386-0) [facility], TIBC, % sat. (without ferritin)2021-06-13 09:01:39 Test Item Value Reference Range Interpretation Comments Iron (test code = 2498-4) 75.0 ug/dL 40.0-160.0 TIBC (test code = 2500-7) 145 ug/dL 250-450 L Iron % Saturation (test 52 % 20-55 code = 2502-3) BRANDI (test code = BRANDI) Inspection And Testing Supervisor ID - HIEN M Lab Interpretation (test Abnormal code = 44214-8) [facility], TIBC, % sat. (without ferritin)2021-06-13 09:01:39 Test Item Value Reference Range Interpretation Comments Iron (test code = 2498-4) 75.0 ug/dL 40.0-160.0 TIBC (test code = 2500-7) 145 ug/dL 250-450 L Iron % Saturation (test 52 % 20-55 code = 2502-3) BRANDI (test code = BRANDI) Inspection And Testing Supervisor ID - HIEN M Lab Interpretation (test Abnormal code = 20009-0) [facility], TIBC, % sat. (without ferritin)2021-06-13 09:01:39 Test Item Value Reference Range Interpretation Comments Iron (test code = 2498-4) 75.0 ug/dL 40.0-160.0 TIBC (test code = 2500-7) 145 ug/dL 250-450 L Iron % Saturation (test 52 % 20-55 code = 2502-3) BRANDI (test code = BRANDI) Inspection And Testing Supervisor ID - HIEN M Lab Interpretation (test Abnormal code = 93902-6) [facility], TIBC, % sat. (without ferritin)2021-06-13 09:01:39 Test Item Value Reference Range Interpretation Comments Iron (test code = 2498-4) 75.0 ug/dL 40.0-160.0 TIBC (test code = 2500-7) 145 ug/dL 250-450 L Iron % Saturation (test 52 % 20-55 code = 2502-3) BRANDI (test code = BRANDI) Inspection And Testing Supervisor ID - HIEN M Lab Interpretation (test Abnormal code = 09093-9) [facility], TIBC, % sat. (without ferritin)2021-06-13 09:01:39 Test Item Value Reference Range Interpretation Comments Iron (test code = 2498-4) 75.0 ug/dL 40.0-160.0 TIBC (test code = 2500-7) 145 ug/dL 250-450 L Iron % Saturation (test 52 % 20-55 code = 2502-3) BRANDI (test code = BRANDI) Inspection And Testing Supervisor ID - HIEN M Lab Interpretation (test Abnormal code = 75132-1) [facility], TIBC, % sat. (without ferritin)2021-06-13 09:01:39 Test Item Value Reference Range Interpretation Comments Iron (test code = 2498-4) 75.0 ug/dL 40.0-160.0 TIBC (test code = 2500-7) 145 ug/dL 250-450 L Iron % Saturation (test 52 % 20-55 code = 2502-3) BRANDI (test code = BRANDI) Inspection And Testing Supervisor ID - HIEN M Lab Interpretation (test Abnormal code = 71809-1) [facility], TIBC, % sat. (without ferritin)2021-06-13 09:01:39 Test Item Value Reference Range Interpretation Comments Iron (test code = 2498-4) 75.0 ug/dL 40.0-160.0 TIBC (test code = 2500-7) 145 ug/dL 250-450 L Iron % Saturation (test 52 % 20-55 code = 2502-3) BRANDI (test code = BRANDI) Inspection And Testing Supervisor ID - HIEN M Lab Interpretation (test Abnormal code = 55422-6) [facility], TIBC, % sat. (without ferritin)2021-06-13 09:01:39 Test Item Value Reference Range Interpretation Comments Iron (test code = 2498-4) 75.0 ug/dL 40.0-160.0 TIBC (test code = 2500-7) 145 ug/dL 250-450 L Iron % Saturation (test 52 % 20-55 code = 2502-3) BRANDI (test code = BRANDI) Inspection And Testing Supervisor ID - HIEN M Lab Interpretation (test Abnormal code = 50397-8) [facility], TIBC, % SAT. (WITHOUT FERRITIN)2021-06-13 09:01:39 Test Item Value Reference Range Interpretation Comments IRON (BEAKER) (test code = 547) 75.0 ug/dL 40.0-160.0 TOTAL IRON BINDING CAPACITY 145 ug/dL 250-450 L (BEAKER) (test code = 769) IRON % SATURATION (2) (BEAKER) 52 % 20-55 (test code = 2590) Inspection And Testing Supervisor ID - HIEN MPOCT-GLUCOSE [id number] 08:51:07 Test Item Value Reference Range Interpretation Comments POC-GLUCOSE METER 106 mg/dL 70-110 : TESTED A T [facility] 6720 (BEAKER) (test code = [place], 1538) [address]: Inspection And Testing Supervisor/Techni kelle ID = [id number] for PADMINI ALMANZAR BASIC METABOLIC [id number] 04:21:54 Test Item Value Reference Range Interpretation [...] S NOT APPLICABLE FOR DIALYSIS PATIEN TS. Inspection And Testing Supervisor ID - HIEN [id number] 04:17:34 Test Item Value Reference Range Interpretation Comments MAGNESIUM (BEAKER) (test code = 2.0 mg/dL 1.6-2.6 627) Inspection And Testing Supervisor ID - HIEN [id number] 04:17:34 Test Item Value Reference Range Interpretation Comments PHOSPHORUS (BEAKER) (test code = 3.1 mg/dL 2.3-4.7 604) Inspection And Testing Supervisor ID - HIEN MCBC W/PLT COUNT & AUTO [id number] 03:49:10 Test Item Value Reference Range Interpretation [...] PERCENT (BEAKER) (test code = 2801) SARS-COV2/RT-PCR ([facility])2021-06-13 02:28:08 Test Item Value Reference Range Interpretation Comments SARS-COV2/RT-PCR (test code = Negative Negative 0501810) Negative result for this test determines that [...] the [place] SARS-CoV-2 assay.Fact Sheet for Healthcare Providers:https://www.Scoop.it.nj/ct/RT SARS-CoV-2 HCP Fact Sheet 51- 741773.pdfFact Sheet for Healthcare Patients:https://www.Scoop.it.[employer]/ct/RT SARS-CoV-2 Patient Fact Sheet EN 51-206784L0.pdfPOCT-GLUCOSE [id number] 02:01:02 Test Item Value Reference Range Interpretation Comments POC-GLUCOSE METER 98 mg/dL 70-110 : TESTED A T [facility] 6720 (BEAKER) (test code = [facility] [place] [facility], 1538) [address]: Inspection And Testing Supervisor/Techni kelle ID = [id number] for SREEKANTH ROSS POCT-GLUCOSE [id number] 02:00:06 Test Item Value Reference Range Interpretation Comments POC-GLUCOSE METER 151 mg/dL 70-110 H : TESTED A T [facility] 6720 (BEAKER) (test code = [facility] [place] [facility], 1538) [address]: Inspection And Testing Supervisor/Techni kelle ID = [id number] for ALINE ROWE BLOOD [id number] 23:01:20 Test Item Value Reference Range Interpretation Comments CULTURE (BEAKER) (test No growth in 5 days code = 1095) BLOOD [id number] 23:01:19 Test Item Value Reference Range Interpretation Comments CULTURE (BEAKER) (test No growth in 5 days code = 1095) CT, BRAIN, WITHOUT [id number] 08:55:00Unlisted Reason for Exam - Click Yes and Enter Reason Below->No [facility] 1955 Sex: FFINAL REPORT CT Head [...] MDReport Verified Date/Time: 06/12/2021 08:55:52 Reading Location: [address] Neuro Reading Room POCT- GLUCOSE [id number] 07:42:49 Test Item Value Reference Range Interpretation Comments POC-GLUCOSE METER 113 mg/dL 70-110 H : TESTED A T [facility] 6720 (BEAKER) (test code = [facility], 1538) [address]: Inspection And Testing Supervisor/Techni kelle ID = [id number] for Sheryl Enciso POCT-GLUCOSE [id number] 07:42:05 Test Item Value Reference Range Interpretation Comments POC-GLUCOSE METER 131 mg/dL 70-110 H : TESTED A T [facility] 6720 (BEAKER) (test code = [facility], 1538) [address]: Inspection And Testing Supervisor/Techni kelle ID = [id number] for AKIL JI EUCEDA POCT-GLUCOSE [id number] 07:32:16 Test Item Value Reference Range Interpretation Comments POC-GLUCOSE METER 127 mg/dL 70-110 H : TESTED A T [facility] 6720 (BEAKER) (test code = [facility], 1538) [address]: Inspection And Testing Supervisor/Techni kelle ID = [id number] for GURINDER VILLA CT, CTANGIO [id number] 03:03:00Reason for exam:->Symptoms onset less than 6 hours and NIHSS 6 or greater [facility] : 1955 Sex: FFINAL REPORT CLINICAL [...] of the film. IMPRESSION: No evidenceof a kasaan of Pandey proximal branch vessel occlusion or [...] and interstitial pulmonary edema. Signed: [facility] Verified Date/Time: 06/12/2021 03:03:56 [facility], CAROTID, [id number] 03:03:00Reason for exam:- >Symptoms onset less than 6 hours and NIHSS 6 or greater [facility] : 1955 Sex: FFINAL REPORT CLINICAL [...] of the film. IMPRESSION: No evidenceof a kasaan of Pandey proximal branch vessel occlusion or [...] and interstitial pulmonary edema. Signed: Nikole Baron Verified Date/Time: 06/12/2021 03:03:56 PROTHROMBIN TIME/[id number] 01:46:16 Test Item Value Reference Range Interpretation Comments PROTIME (BEAKER) 15.0 seconds 11.9-14.2 H (test code = 759) INR (BEAKER) (test 1.20 See_Comment [Automat ed message] code = 370) The system IAMINTOIT generated this result transmitted ref erence range: [...] (test code = 2801) CT, BRAIN, WITHOUT [id number] 01:38:00Unlisted Reason for Exam - Click Yes and Enter Reason Below->No [facility] : 1955 Sex: FFINAL REPORT CT [...] 06/12/2021 01:38:35 High Sensitivity Troponin I ([facility]/Jin Only)2021-06-12 01:35:31 Test Item Value Reference Range Interpretation Comments Troponin I HS 231 pg/ml See_Comment H [Automated (test code = message] The 65067-8) system which generated this result transmitted reference range : <=17. The reference range was not used to interpret this result as normal/abnormal . BRANDI (test code = Inspection And Testing Supervisor ID - BRANDI) DBThe RELOCATION MANAGER STAT High Sensitivity Troponin-I results should be used in conjunction with other diagnostic information such as ECG, clinical observations and information, and patient symptoms to aid in the diagnosis of [place]. Lab Interpretation Abnormal (test code = 86688-9) [facility]Jin [facility] 2021-06-12 01:35:31 Test Item Value Reference Range Interpretation Comments Troponin I HS 231 pg/ml See_Comment H [Automated (test code = message] The 91312-7) system which generated this result transmitted reference range : <=17. The reference range was not used to interpret this result as normal/abnormal . BRANDI (test code = Inspection And Testing Supervisor ID - BRANDI) DBThe RELOCATION MANAGER STAT High Sensitivity Troponin-I results should be used in conjunction with other diagnostic information such as ECG, clinical observations and information, and patient symptoms to aid in the diagnosis of [place]. Lab Interpretation Abnormal (test code = 93694-6) [facility]/Jin Only) 2021-06-12 01:35:31 Test Item Value Reference Range Interpretation Comments Troponin I HS 231 pg/ml See_Comment H [Automated (test code = message] The [employer]) system which generated this result transmitted reference range : <=17. The reference range was not used to interpret this result as normal/abnormal . BRANDI (test code = Inspection And Testing Supervisor ID - BRANDI) DBThe RELOCATION MANAGER STAT High Sensitivity Troponin-I results should be used in conjunction with other diagnostic information such as ECG, clinical observations and information, and patient symptoms to aid in the diagnosis of [place]. Lab Interpretation Abnormal (test code = 18720-2) [facility]/Jin Only) 2021-06-12 01:35:31 Test Item Value Reference Range Interpretation Comments Troponin I HS 231 pg/ml See_Comment H [Automated (test code = message] The 99138-9) system which generated this result transmitted reference range : <=17. The reference range was not used to interpret this result as normal/abnormal . BRANDI (test code = Inspection And Testing Supervisor ID - BRANDI) DBThe RELOCATION MANAGER STAT High Sensitivity Troponin-I results should be used in conjunction with other diagnostic information such as ECG, clinical observations and information, and patient symptoms to aid in the diagnosis of [place]. Lab Interpretation Abnormal (test code = 10552-5) [facility] ([facility]/Jin Only) 2021-06-12 01:35:31 Test Item Value Reference Range Interpretation Comments Troponin I HS 231 pg/ml See_Comment H [Automated (test code = message] The 77668-8) system which generated this result transmitted reference range : <=17. The reference range was not used to interpret this result as normal/abnormal . BRANDI (test code = Inspection And Testing Supervisor ID - BRANID) DBThe RELOCATION MANAGER STAT High Sensitivity Troponin-I results should be used in conjunction with other diagnostic information such as ECG, clinical observations and information, and patient symptoms to aid in the diagnosis of [place]. Lab Interpretation Abnormal (test code = 79735-1) [facility] 2021-06-12 01:35:31 Test Item Value Reference Range Interpretation Comments Troponin I HS 231 pg/ml See_Comment H [Automated (test code = message] The 95557-6) system which generated this result transmitted reference range : <=17. The reference range was not used to interpret this result as normal/abnormal . BRANDI (test code = Inspection And Testing Supervisor ID - BRANDI) DBThe RELOCATION MANAGER STAT High Sensitivity Troponin-I results should be used in conjunction with other diagnostic information such as ECG, clinical observations and information, and patient symptoms to aid in the diagnosis of [place]. Lab Interpretation Abnormal (test code = 18986-6) [facility] 2021-06-12 01:35:31 Test Item Value Reference Range Interpretation Comments Troponin I HS 231 pg/ml See_Comment H [Automated (test code = message] The 84618-4) system which generated this result transmitted reference range : <=17. The reference range was not used to interpret this result as normal/abnormal . BRANDI (test code = Inspection And Testing Supervisor ID - BRANDI) DBThe RELOCATION MANAGER STAT High Sensitivity Troponin-I results should be used in conjunction with other diagnostic information such as ECG, clinical observations and information, and patient symptoms to aid in the diagnosis of [place]. Lab Interpretation Abnormal (test code = 12393-6) [facility] 2021-06-12 01:35:31 Test Item Value Reference Range Interpretation Comments Troponin I HS 231 pg/ml See_Comment H [Automated (test code = message] The 90715-9) system which generated this result transmitted reference range : <=17. The reference range was not used to interpret this result as normal/abnormal . BRANDI (test code = Inspection And Testing Supervisor ID - BRANDI) DBThe RELOCATION MANAGER STAT High Sensitivity Troponin-I results should be used in conjunction with other diagnostic information such as ECG, clinical observations and information, and patient symptoms to aid in the diagnosis of [place]. Lab Interpretation Abnormal (test code = 92569-4) [facility] 2021-06-12 01:35:31 Test Item Value Reference Range Interpretation Comments Troponin I HS 231 pg/ml See_Comment H [Automated (test code = message] The [employer]) system which generated this result transmitted reference range : <=17. The reference range was not used to interpret this result as normal/abnormal . BRANDI (test code = Inspection And Testing Supervisor ID - BRANDI) DBThe RELOCATION MANAGER STAT High Sensitivity Troponin-I results should be used in conjunction with other diagnostic information such as ECG, clinical observations and information, and patient symptoms to aid in the diagnosis of [place]. Lab Interpretation Abnormal (test code = 65747-0) [facility] 2021-06-12 01:35:31 Test Item Value Reference Range Interpretation Comments Troponin I HS 231 pg/ml See_Comment H [Automated (test code = message] The [employer]) system which generated this result transmitted reference range : <=17. The reference range was not used to interpret this result as normal/abnormal . BRANDI (test code = Inspection And Testing Supervisor ID - BRANDI) Eqlim RELOCATION MANAGER STAT High Sensitivity Troponin-I results should be used in conjunction with other diagnostic information such as ECG, clinical observations and information, and patient symptoms to aid in the diagnosis of [place]. Lab Interpretation Abnormal (test code = 38945-0) [facility] ([facility]Jin Only[facility] 2021-06-12 01:35:31 Test Item Value Reference Range Interpretation Comments Troponin I HS 231 pg/ml See_Comment H [Automated (test code = message] The [employer]ong[employer]ou) system which generated this result transmitted reference range : <=17. The reference range was not used to interpret this result as normal/abnormal . BRANDI (test code = Inspection And Testing Supervisor ID - BRANDI) Eqlim RELOCATION MANAGER STAT High Sensitivity Troponin-I results should be used in conjunction with other diagnostic information such as ECG, clinical observations and information, and patient symptoms to aid in the diagnosis of [place]. Lab Interpretation Abnormal (test code = 35368-1) [facility]Jin [facility] 2021-06-12 01:35:31 Test Item Value Reference Range Interpretation Comments Troponin I HS 231 pg/ml See_Comment H [Automated (test code = message] The 19078-3) system which generated this result transmitted reference range : <=17. The reference range was not used to interpret this result as normal/abnormal . BRANDI (test code = Inspection And Testing Supervisor ID - BRANDI) DBThe RELOCATION MANAGER STAT High Sensitivity Troponin-I results should be used in conjunction with other diagnostic information such as ECG, clinical observations and information, and patient symptoms to aid in the diagnosis of [place]. Lab Interpretation Abnormal (test code = 59443-6) [facility] TROPONIN [id number] 01:35:31 Test Item Value Reference Range Interpretation Comments HIGH SENSITIVITY 231 pg/ml See_Comment H [Automated message] TROPONIN I (test code The sy stem which = 7331135) generated this result transmitted ref erence range: <=17. Th e reference range was not used to int erpret this result as normal/abnormal . Inspection And Testing Supervisor ID - DBThe RELOCATION MANAGER STAT High Sensitivity Troponin-I results should be used in conjunctionwith other diagnostic information such as ECG, clinical observations and information, and patient symptoms to aid in the diagnosis of [place].BASIC METABOLIC [id number] 01:29:11 Test Item Value Reference Range Interpretation [...] S NOT APPLICABLE FOR DIALYSIS PATIEN TS. Inspection And Testing Supervisor ID - [id number] 01:28:34 Test Item Value Reference Range Interpretation Comments PHOSPHORUS (BEAKER) 4.6 mg/dL 2.3-4.7 Specimen slightly (test code = 604) hemolyzed Inspection And Testing Supervisor ID - [id number] 01:28:33 Test Item Value Reference Range Interpretation Comments MAGNESIUM (BEAKER) 2.2 mg/dL 1.6-2.6 Specimen slightly (test code = 627) hemolyzed Inspection And Testing Supervisor ID - DBLactic acid, [id number] 01:26:32 Test Item Value Reference Range Interpretation Comments Lactate, Venous (test code = 0.87 mmol/L 0.50-2.20 2872) BRANDI (test code = BRANDI) Inspection And Testing Supervisor ID - DB Lab Interpretation (test Normal code = 24362-7) [facility] [id number] 01:26:32 Test Item Value Reference Range Interpretation Comments Lactate, Venous (test code = 0.87 mmol/L 0.50-2.20 2872) BRANDI (test code = BRANDI) Inspection And Testing Supervisor ID - DB Lab Interpretation (test Normal code = 27958-6) [facility], [id number] 01:26:32 Test Item Value Reference Range Interpretation Comments Lactate, Venous (test code = 0.87 mmol/L 0.50-2.20 2872) BRANDI (test code = BARNDI) Inspection And Testing Supervisor ID - DB Lab Interpretation (test Normal code = 05767-8) [facility] [id number] 01:26:32 Test Item Value Reference Range Interpretation Comments Lactate, Venous (test code = 0.87 mmol/L 0.50-2.20 2872) BRANDI (test code = BRANDI) Inspection And Testing Supervisor ID - DB Lab Interpretation (test Normal code = 00610-7) [facility] [id number] 01:26:32 Test Item Value Reference Range Interpretation Comments Lactate, Venous (test code = 0.87 mmol/L 0.50-2.20 2872) BRANDI (test code = BRANDI) Inspection And Testing Supervisor ID - DB Lab Interpretation (test Normal code = 04014-5) [facility] [id number] 01:26:32 Test Item Value Reference Range Interpretation Comments Lactate, Venous (test code = 0.87 mmol/L 0.50-2.20 2872) BRANDI (test code = BRANDI) Inspection And Testing Supervisor ID - DB Lab Interpretation (test Normal code = 74857-2) [facility], [id number] 01:26:32 Test Item Value Reference Range Interpretation Comments Lactate, Venous (test code = 0.87 mmol/L 0.50-2.20 2872) BRANDI (test code = BRANDI) Inspection And Testing Supervisor ID - DB Lab Interpretation (test Normal code = 09419-7) [facility] [facility] [id number] 01:26:32 Test Item Value Reference Range Interpretation Comments Lactate, Venous (test code = 0.87 mmol/L 0.50-2.20 2872) BRANDI (test code = BRANDI) Inspection And Testing Supervisor ID - DB Lab Interpretation (test Normal code = 45130-8) [facility] [id number] 01:26:32 Test Item Value Reference Range Interpretation Comments Lactate, Venous (test code = 0.87 mmol/L 0.50-2.20 2872) BRANDI (test code = BRANDI) Inspection And Testing Supervisor ID - DB Lab Interpretation (test Normal code = 88511-1) [facility] [id number] 01:26:32 Test Item Value Reference Range Interpretation Comments Lactate, Venous (test code = 0.87 mmol/L 0.50-2.20 2872) BRANDI (test code = BRANDI) Inspection And Testing Supervisor ID - DB Lab Interpretation (test Normal code = 70737-9) [facility] [id number] 01:26:32 Test Item Value Reference Range Interpretation Comments Lactate, Venous (test code = 0.87 mmol/L 0.50-2.20 2872) BRANDI (test code = BRANDI) Inspection And Testing Supervisor ID - DB Lab Interpretation (test Normal code = 56300-0) [facility] [id number] 01:26:32 Test Item Value Reference Range Interpretation Comments Lactate, Venous (test code = 0.87 mmol/L 0.50-2.20 2872) BRANDI (test code = BRANDI) Inspection And Testing Supervisor ID - DB Lab Interpretation (test Normal code = 66380-9) [facility] [id number] 01:26:32 Test Item Value Reference Range Interpretation Comments LACTATE BLOOD VENOUS (2) (BEAKER) 0.87 mmol/L 0.50-2.20 (test code = 2872) Inspection And Testing Supervisor ID - DBPOCT-GLUCOSE [id number] 16:24:28 Test Item Value Reference Range Interpretation Comments POC-GLUCOSE METER 244 mg/dL 70-110 H : TESTED A T [facility] 6720 (BEAKER) (test code = [facility], 1538) 16178: Inspection And Testing Supervisor/Techni kelle ID = [id number] for Re yes, Maranda POCT-GLUCOSE [id number] 11:29:05 Test Item Value Reference Range Interpretation Comments POC-GLUCOSE METER 168 mg/dL 70-110 H : TESTED A T [facility] 6720 (BEAKER) (test code = [facility], 1538) 75527: Inspection And Testing Supervisor/Techni kelle ID = [id number] for Re yes, Maranda POCT-GLUCOSE [id number] 06:45:50 Test Item Value Reference Range Interpretation Comments POC-GLUCOSE METER 132 mg/dL 70-110 H : TESTED A T [facility] 6720 (BEAKER) (test code = [facility], 1538) 09595: Inspection And Testing Supervisor/Techni kelle ID = [id number] for UG GHADA HAMLIN BASIC METABOLIC [id number] 05:08:08 Test Item Value Reference Range Interpretation [...] S NOT APPLICABLE FOR DIALYSIS PATIEN TS. Inspection And Testing Supervisor ID - HIEN [id number] 04:56:38 Test Item Value Reference Range Interpretation Comments MAGNESIUM (BEAKER) (test code = 1.9 mg/dL 1.6-2.6 627) Inspection And Testing Supervisor ID - HIEN [id number] 04:56:38 Test Item Value Reference Range Interpretation Comments PHOSPHORUS (BEAKER) (test code = 3.7 mg/dL 2.3-4.7 604) Inspection And Testing Supervisor ID - HIEN [facility]BC W/PLT COUNT & AUTO [id number] 04:33:28 Test Item Value Reference Range Interpretation [...] = 2801) CBC W/PLT COUNT & AUTO [id number] 22:57:11 Test Item Value Reference Range Interpretation [...] = 2801) RAD, CHEST, 1 VIEW, NON [id number] 22:44:00Reason for exam:- >dyspneaShould this be performed at the bedside?->Yes [facility] : 1955 Sex: FFINAL REPORT History: dyspnea. [...] Signed: Braxton Quinteroeport Verified Date/Time: 06/10/2021 22:44:59 [id number] 22:43:07 Test Item Value Reference Range Interpretation Comments POC-Glucose (test code = 118 mg/dL 70-110 H : T ESTED AT [facility] 1855) [address] [place] [address], 770 30: Inspection And Testing Supervisor/Techni kelle ID = [id number] for MARFIL, JOSE ARMANDO Lab Interpretation (test Abnormal code = 33661-7) [facility]2022-03-09 22:43:07 Test Item Value Reference Range Interpretation Comments POC-Glucose (test code = 118 mg/dL 70-110 H : [facility] [address] [place] [address], 7[address] 30: Inspection And Testing Supervisor/Techni kelle ID = [id number] for MARFIL, JOSE ARMANDO Lab Interpretation (test Abnormal code = 95006-2) [facility]2022-03-09 22:43:07 Test Item Value Reference Range Interpretation Comments POC-Glucose (test code = 118 mg/dL 70-110 H : [facility] [address] [place] [address], 7[address] 30: Inspection And Testing Supervisor/Techni kelle ID = [id number] for MARFIL, JOSE ARMANDO Lab Interpretation (test Abnormal code = 66613-3) [id number] 22:43:07 Test Item Value Reference Range Interpretation Comments POC-Glucose (test code = 118 mg/dL 70-110 H : [facility] [address] [place] [address], 7[address] 30: Inspection And Testing Supervisor/Techni kelle ID = [id number] for MARFIL, JOSE ARMANDO Lab Interpretation (test Abnormal code = 24506-0) [facility]2022-03-09 22:43:07 Test Item Value Reference Range Interpretation Comments POC-Glucose (test code = 118 mg/dL 70-110 H : [facility] [address] [place] [address], 7[address] 30: Inspection And Testing Supervisor/Techni kelle ID = [id number] for MARFIL, JOSE ARMANDO Lab Interpretation (test Abnormal code = 17555-3) [facility]2022-03-09 22:43:07 Test Item Value Reference Range Interpretation Comments POC-Glucose (test code = 118 mg/dL 70-110 H : [facility] [address] [place] [address], 7[address] 30: Inspection And Testing Supervisor/Techni kelle ID = [id number] for MARFIL, JOSE ARMANDO Lab Interpretation (test Abnormal code = 55219-6) [facility]2022-03-09 22:43:07 Test Item Value Reference Range Interpretation Comments POC-Glucose (test code = 118 mg/dL 70-110 H : [facility] [address] [place] [address], 7[address] 30: Inspection And Testing Supervisor/Techni kelle ID = [id number] for MARFIL, JOSE ARMANDO Lab Interpretation (test Abnormal code = 85970-5) [facility]2022-03-09 22:43:07 Test Item Value Reference Range Interpretation Comments POC-Glucose (test code = 118 mg/dL 70-110 H : [facility] [address] [place] [address], [address] 30: Inspection And Testing Supervisor/Techni kelle ID = [id number] for MARFIL, JOSE ARMANDO Lab Interpretation (test Abnormal code = 75030-2) [facility]2022-03-09 22:43:07 Test Item Value Reference Range Interpretation Comments POC-Glucose (test code = 118 mg/dL 70-110 H : [facility] [address] [place] [address], 7[address] 30: Inspection And Testing Supervisor/Techni kelle ID = [id number] for MARFIL, JOSE ARMANDO Lab Interpretation (test Abnormal code = 56008-7) [facility]2022-03-09 22:43:07 Test Item Value Reference Range Interpretation Comments POC-Glucose (test code = 118 mg/dL 70-110 H : T ESTED AT [facility] 1855) 6720 [facility], 770 30: Inspection And Testing Supervisor/Techni kelle ID = [id number] for MARFIL, JOSE ARMANDO Lab Interpretation (test Abnormal code = 95279-0) [facility]-[id number] 22:43:07 Test Item Value Reference Range Interpretation Comments POC-Glucose (test code = 118 mg/dL 70-110 H : T ESTED AT [facility] 1855) 6720 [facility], 770 30: Inspection And Testing Supervisor/Techni kelle ID = [id number] for MARFIL, JOSE ARMANDO Lab Interpretation (test Abnormal code = 32848-6) [facility]-[id number] 22:43:07 Test Item Value Reference Range Interpretation Comments POC-Glucose (test code = 118 mg/dL 70-110 H : T ESTED AT [facility] 1855) 6720 [facility], 770 30: Inspection And Testing Supervisor/Techni kelle ID = [id number] for MARFIL, JOSE ARMANDO Lab Interpretation (test Abnormal code = 27136-2) [facility]-[id number] 22:43:07 Test Item Value Reference Range Interpretation Comments POC-GLUCOSE (BEAKER) 118 mg/dL 70-110 H : TESTE D AT [facility] 6720 (test code = 1855) [facility], [address]: Inspection And Testing Supervisor/Techni kelle ID = [id number] for MARF IL, JOSE ARMANDO [id number]-[id number] 22:43:06 Test Item Value Reference Range Interpretation Comments POC-Hemoglobin (test code 8.2 g/dL 12.0-15.0 L : TESTED AT [facility] = 1856) 20 [facility], 770 30: Inspection And Testing Supervisor/Techni kelle ID = [id number] for MARFIL, JOSE ARMANDO Lab Interpretation (test Abnormal code = 21128-7) [facility] CenterItejeaIIKP-[id number] 22:43:06 Test Item Value Reference Range Interpretation Comments POC-Hematocrit (test code 24 % 36-45 L : = 1857) Inspection And Testing Supervisor/Techni kelle ID = [id number] for MARFIL, JOSE ARMANDO Lab Interpretation (test Abnormal code = 89157-7) [facility] CenterOrihqdHIQZ-[id number] 22:43:06 Test Item Value Reference Range Interpretation Comments POC-Hemoglobin (test code 8.2 g/dL 12.0-15.0 L : TESTED AT [facility] = 1856) [address] [place] [address], 7[address] 30: Inspection And Testing Supervisor/Techni kelle ID = [id number] for MARFIL, JOSE ARMANDO Lab Interpretation (test Abnormal code = 37943-7) [facility]-[id number] 22:43:06 Test Item Value Reference Range Interpretation Comments POC-Hematocrit (test code 24 % 36-45 L : = 1857) Inspection And Testing Supervisor/Techni kelle ID = [id number] for MARFIL, JOSE ARMANDO Lab Interpretation (test Abnormal code = 11266-0) [facility]-[id number] 22:43:06 Test Item Value Reference Range Interpretation Comments POC-Hemoglobin (test code 8.2 g/dL 12.0-15.0 L : TESTED AT [facility] = 1856) [address] [place] [address], 770 30: Inspection And Testing Supervisor/Techni kelle ID = [id number] for MARFIL, JOSE ARMANDO Lab Interpretation (test Abnormal code = 72463-0) [facility]-[id number] 22:43:06 Test Item Value Reference Range Interpretation Comments POC-Hematocrit (test code 24 % 36-45 L : = 1857) Inspection And Testing Supervisor/Techni kelle ID = [id number] for MARFIL, JOSE ARMANDO Lab Interpretation (test Abnormal code = 18805-1) [facility]-[id number] 22:43:06 Test Item Value Reference Range Interpretation Comments POC-Hemoglobin (test code 8.2 g/dL 12.0-15.0 L : [facility] 1856[facility] [address] [place] [address], 7[address] 30: Inspection And Testing Supervisor/Techni kelle ID = [id number] for MARFIL, JOSE ARMANDO Lab Interpretation (test Abnormal code = 29015-9) [facility]-[id number] 22:43:06 Test Item Value Reference Range Interpretation Comments POC-Hematocrit (test code 24 % 36-45 L : = 1857) Inspection And Testing Supervisor/Techni kelle ID = [id number] for MARFIL, JOSE ARMANDO Lab Interpretation (test Abnormal code = 98741-3) [facility]-[id number] 22:43:06 Test Item Value Reference Range Interpretation Comments POC-Hemoglobin (test code 8.2 g/dL 12.0-15.0 L : TESTED AT [facility] = 1856) [address] [place] [address], 770 30: Inspection And Testing Supervisor/Techni kelle ID = [id number] for MARFIL, JOSE ARMANDO Lab Interpretation (test Abnormal code = 98304-9) [facility]-[id number] 22:43:06 Test Item Value Reference Range Interpretation Comments POC-Hematocrit (test code 24 % 36-45 L : = 1857) Inspection And Testing Supervisor/Techni kelle ID = [id number] for MARFIL, JOSE ARMANDO Lab Interpretation (test Abnormal code = 51954-1) [facility]-[id number] 22:43:06 Test Item Value Reference Range Interpretation Comments POC-Hemoglobin (test code 8.2 g/dL 12.0-15.0 L : TESTED AT [facility] = 1856) [address] [place] [address], 7[address] 30: Inspection And Testing Supervisor/Techni kelle ID = [id number] for MARFIL, JOSE ARMANDO Lab Interpretation (test Abnormal code = 10289-8) [facility]-[id number] 22:43:06 Test Item Value Reference Range Interpretation Comments POC-Hematocrit (test code 24 % 36-45 L : = 1857) Inspection And Testing Supervisor/Techni kelle ID = [id number] for MARFIL, JOSE ARMANDO Lab Interpretation (test Abnormal code = 98232-1) [facility]-[id number] 22:43:06 Test Item Value Reference Range Interpretation Comments POC-Hemoglobin (test code 8.2 g/dL 12.0-15.0 L : TESTED AT [facility] = 1856) [address] [place] [address], [address] 30: Inspection And Testing Supervisor/Techni kelle ID = [id number] for MARFIL, JOSE ARMANDO Lab Interpretation (test Abnormal code = 17477-6) [facility]-[id number] 22:43:06 Test Item Value Reference Range Interpretation Comments POC-Hematocrit (test code 24 % 36-45 L : = 1857) Inspection And Testing Supervisor/Techni kelle ID = [id number] for MARFIL, JOSE ARMANDO Lab Interpretation (test Abnormal code = 92723-6) [facility]-[id number] 22:43:06 Test Item Value Reference Range Interpretation Comments POC-Hemoglobin (test code 8.2 g/dL 12.0-15.0 L : [facility] 1856[facility] [address] [place] [address], 7[address] 30: Inspection And Testing Supervisor/Techni kelle ID = [id number] for MARFIL, JOSE ARMANDO Lab Interpretation (test Abnormal code = 86641-1) [facility]-[id number] 22:43:06 Test Item Value Reference Range Interpretation Comments POC-Hematocrit (test code 24 % 36-45 L : = 1857) Inspection And Testing Supervisor/Techni kelle ID = [id number] for MARFIL, JOSE ARMANDO Lab Interpretation (test Abnormal code = 01444-2) [facility]-[id number] 22:43:06 Test Item Value Reference Range Interpretation Comments POC-Hemoglobin (test code 8.2 g/dL 12.0-15.0 L : TESTED AT [facility] = 1856) [address] [place] [address], 7[address] 30: Inspection And Testing Supervisor/Techni kelle ID = [id number] for MARFIL, JOSE ARMANDO Lab Interpretation (test Abnormal code = 01557-7) [facility]-[id number] 22:43:06 Test Item Value Reference Range Interpretation Comments POC-Hematocrit (test code 24 % 36-45 L : = 1857) Inspection And Testing Supervisor/Techni kelle ID = [id number] for MARFIL, JOSE ARMANDO Lab Interpretation (test Abnormal code = 50961-1) [facility]-[id number] 22:43:06 Test Item Value Reference Range Interpretation Comments POC-Hemoglobin (test code 8.2 g/dL 12.0-15.0 L : [facility] 1856[facility] [address] [place] [address], 7[address] 30: Inspection And Testing Supervisor/Techni kelle ID = [id number] for MARFIL, JOSE ARMANDO Lab Interpretation (test Abnormal code = 42408-7) [facility]-[id number] 22:43:06 Test Item Value Reference Range Interpretation Comments POC-Hematocrit (test code 24 % 36-45 L : = 1857) Inspection And Testing Supervisor/Techni kelle ID = [id number] for MARFIL, JOSE ARMANDO Lab Interpretation (test Abnormal code = 48364-0) [facility]yp[facility]wrEIIK-[id number] 22:43:06 Test Item Value Reference Range Interpretation Comments POC-Hemoglobin (test code 8.2 g/dL 12.0-15.0 L : TESTED AT [facility] = 1856) 67[address] [facility], 770 30: Inspection And Testing Supervisor/Techni kelle ID = [id number] for MARFIL, JOSE ARMANDO Lab Interpretation (test Abnormal code = 14269-8) [facility] CenterNazdfaULCZ-[id number] 22:43:06 Test Item Value Reference Range Interpretation Comments POC-Hematocrit (test code 24 % 36-45 L : = 1857) Inspection And Testing Supervisor/Techni kelle ID = [id number] for MARFIL, JOSE ARMANDO Lab Interpretation (test Abnormal code = 35171-8) [facility]-[id number] 22:43:06 Test Item Value Reference Range Interpretation Comments POC-Hemoglobin (test code 8.2 g/dL 12.0-15.0 L : TESTED AT [facility] = 1856) [address] [place] [address], [address] 30: Inspection And Testing Supervisor/Techni kelle ID = [id number] for MARFIL, JOSE ARMANDO Lab Interpretation (test Abnormal code = 46393-7) [facility] CenterYlzccoVPVK-[id number] 22:43:06 Test Item Value Reference Range Interpretation Comments POC-Hematocrit (test code 24 % 36-45 L : = 1857) Inspection And Testing Supervisor/Techni kelle ID = [id number] for MARFIL, JOSE ARMANDO Lab Interpretation (test Abnormal code = 24945-7) [facility] CenterWgyzpsSIDF-[id number] 22:43:06 Test Item Value Reference Range Interpretation Comments POC-HEMOGLOBIN 8.2 g/dL 12.0-15.0 L : TESTED AT [facility] 6720 (BEAKER) (test code = [facility], 1856) [address]: Inspection And Testing Supervisor/Techni kelle ID = [id number] for MARF IL, JOSE ARMANDO QBWS-[id number] 22:43:06 Test Item Value Reference Range Interpretation Comments POC-HEMATOCRIT 24 % 36-45 L : Inspection And Testing Supervisor/Te chnician ID = (BEAKER) (test code = 606397 for MARFIL, JOSE ARMANDO 1857) QKV-Uchbydeik1564-83-09 22:43:05 Test Item Value Reference Range Interpretation Comments POC-Potassium (test code 3.4 meq/L 3.6-5.5 L : T ESTED AT [facility] = 1540) [address] [place] [address], 7[address] 30: Inspection And Testing Supervisor/Techni kelle ID = [id number] for MARFIL, JOSE ARMANDO Lab Interpretation (test Abnormal code = 50868-2) [facility]-Ikgzky9210-32-29 22:43:05 Test Item Value Reference Range Interpretation Comments POC-Sodium (test code = 137 meq/L 135-148 : TE STED AT [facility] 1542) [address] [place] [address], [address] 30: Inspection And Testing Supervisor/Techni kelle ID = [id number] for MARFIL, JOSE ARMANDO Lab Interpretation (test Normal code = 82050-5) [facility]-Nuyvnczap0368-52-15 22:43:05 Test Item Value Reference Range Interpretation Comments POC-Potassium (test code 3.4 meq/L 3.6-5.5 L : T ESTED AT [facility] = 1540) [address] [place] [address], 7[address] 30: Inspection And Testing Supervisor/Techni kelle ID = [id number] for MARFIL, JOSE ARMANDO Lab Interpretation (test Abnormal code = 66602-9) [facility]-[id number] 22:43:05 Test Item Value Reference Range Interpretation Comments POC-Sodium (test code = 137 meq/L 135-148 : TE STED AT [facility] 1542) [address] [place] [address], 770 30: Inspection And Testing Supervisor/Techni kelle ID = [id number] for MARFIL, JOSE ARMANDO Lab Interpretation (test Normal code = 16952-8) [facility]-Pptnxpifq1753-03-02 22:43:05 Test Item Value Reference Range Interpretation Comments POC-Potassium (test code 3.4 meq/L 3.6-5.5 L : T ESTED AT [facility] = 1540) [address] [place] [address], 7[address] 30: Inspection And Testing Supervisor/Techni kelle ID = [id number] for MARFIL, JOSE ARMANDO Lab Interpretation (test Abnormal code = 28974-5) [facility]-[id number] 22:43:05 Test Item Value Reference Range Interpretation Comments POC-Sodium (test code = 137 meq/L 135-148 : TE STED AT [facility] 1542) [address] [place] [address], 770 30: Inspection And Testing Supervisor/Techni kelle ID = [id number] for MARFIL, JOSE ARMANDO Lab Interpretation (test Normal code = 50441-8) [facility]-Heibrhqoq4295-74-09 22:43:05 Test Item Value Reference Range Interpretation Comments POC-Potassium (test code 3.4 meq/L 3.6-5.5 L : T ESTED AT [facility] = 1540) [address] [place] [address], 770 30: Inspection And Testing Supervisor/Techni kelle ID = [id number] for MARFIL, JOSE ARMANDO Lab Interpretation (test Abnormal code = 09094-3) [facility] 22:43:05 Test Item Value Reference Range Interpretation Comments POC-Sodium (test code = 137 meq/L 135-148 : TE STED AT [facility] 1542) [address] [place] [address], 770 30: Inspection And Testing Supervisor/Techni kelle ID = [id number] for MARFIL, JOSE ARMANDO Lab Interpretation (test Normal code = 92256-1) [facility] CenterAkpxyejgr0615-68-16 22:43:05 Test Item Value Reference Range Interpretation Comments POC-Potassium (test code 3.4 meq/L 3.6-5.5 L : T ESTED AT [facility] = 1540) [address] [place] [address], 770 30: Inspection And Testing Supervisor/Techni kelle ID = [id number] for MARFIL, JOSE ARMANDO Lab Interpretation (test Abnormal code = 94949-6) [facility] CenterSnywme7231-46-53 22:43:05 Test Item Value Reference Range Interpretation Comments POC-Sodium (test code = 137 meq/L 135-148 : TE STED AT [facility] 1542) [address] [place] [address], 770 30: Inspection And Testing Supervisor/Techni kelle ID = [id number] for MARFIL, JOSE ARMANDO Lab Interpretation (test Normal code = 89730-5) [facility]-Wtvsvzbvj3411-22-98 22:43:05 Test Item Value Reference Range Interpretation Comments POC-Potassium (test code 3.4 meq/L 3.6-5.5 L : T ESTED AT [facility] = 1540) [address] [place] [address], [facility] 30: Inspection And Testing Supervisor/Techni kelle ID = [id number] for MARFIL, JOSE ARMANDO Lab Interpretation (test Abnormal code = 61329-1) [facility]-[id number] 22:43:05 Test Item Value Reference Range Interpretation Comments POC-Sodium (test code = 137 meq/L 135-148 : TE STED AT [facility] 1542) [address] [place] [address], [facility] 30: Inspection And Testing Supervisor/Techni kelle ID = [id number] for MARFIL, JOSE ARMANDO Lab Interpretation (test Normal code = 26872-3) [facility]-Yefmucwib6170-69-23 22:43:05 Test Item Value Reference Range Interpretation Comments POC-Potassium (test code 3.4 meq/L 3.6-5.5 L : T ESTED AT [facility] = 1540) [address] [place] [address], [facility] 30: Inspection And Testing Supervisor/Techni kelle ID = [id number] for MARFIL, JOSE ARMANDO Lab Interpretation (test Abnormal code = 04477-9) [facility]-[id number] 22:43:05 Test Item Value Reference Range Interpretation Comments POC-Sodium (test code = 137 meq/L 135-148 : TE STED AT [facility] 1542) [address] [place] [address], [facility] 30: Inspection And Testing Supervisor/Techni kelle ID = [id number] for MARFIL, JOSE ARMANDO Lab Interpretation (test Normal code = 91954-7) [facility]-Urebtltcp4147-03-46 22:43:05 Test Item Value Reference Range Interpretation Comments POC-Potassium (test code 3.4 meq/L 3.6-5.5 L : T ESTED AT [facility] = 1540) [address] [place] [address], [facility] 30: Inspection And Testing Supervisor/Techni kelle ID = [id number] for MARFIL, JOSE ARMANDO Lab Interpretation (test Abnormal code = 59831-5) [facility]-Fyjqwh5493-16-04 22:43:05 Test Item Value Reference Range Interpretation Comments POC-Sodium (test code = 137 meq/L 135-148 : TE STED AT [facility] 1542) [address] [place] [address], [address] 30: Inspection And Testing Supervisor/Techni kelle ID = [id number] for MARFIL, JOSE ARMANDO Lab Interpretation (test Normal code = 71546-0) [facility]-Rbsmjlsfl6189-86-15 22:43:05 Test Item Value Reference Range Interpretation Comments POC-Potassium (test code 3.4 meq/L 3.6-5.5 L : T ESTED AT [facility] = 1540) [address] [place] [address], 770 30: Inspection And Testing Supervisor/Techni kelle ID = [id number] for MARFIL, JOSE ARMANDO Lab Interpretation (test Abnormal code = 21962-6) [id number] 22:43:05 Test Item Value Reference Range Interpretation Comments POC-Sodium (test code = 137 meq/L 135-148 : TE STED AT [facility] 1542) [address] [place] [address], 770 30: Inspection And Testing Supervisor/Techni kelle ID = [id number] for MARFIL, JOSE ARMANDO Lab Interpretation (test Normal code = 14264-4) [facility]-[id number] 22:43:05 Test Item Value Reference Range Interpretation Comments POC-Potassium (test code 3.4 meq/L 3.6-5.5 L : T ESTED AT [facility] = 1540) [address] [place] [address], 770 30: Inspection And Testing Supervisor/Techni kelle ID = [id number] for MARFIL, JOSE ARMANDO Lab Interpretation (test Abnormal code = 37659-3) [facility]-[id number] 22:43:05 Test Item Value Reference Range Interpretation Comments POC-Sodium (test code = 137 meq/L 135-148 : TE STED AT [facility] 1542) [address] [place] [address], 770 30: Inspection And Testing Supervisor/Techni kelle ID = [id number] for MARFIL, JOSE ARMANDO Lab Interpretation (test Normal code = 21067-3) [facility]-Upeynmcec9807-13-62 22:43:05 Test Item Value Reference Range Interpretation Comments POC-Potassium (test code 3.4 meq/L 3.6-5.5 L : T ESTED AT [facility] = 1540) 20 [facility], 770 30: Inspection And Testing Supervisor/Techni kelle ID = [id number] for MARFIL, JOSE ARMANOD Lab Interpretation (test Abnormal code = 39789-0) [facility]-[id number] 22:43:05 Test Item Value Reference Range Interpretation Comments POC-Sodium (test code = 137 meq/L 135-148 : TE STED AT [facility] 1542) [address] [place] [address], 770 30: Inspection And Testing Supervisor/Techni kelle ID = [id number] for MARFIL, JOSE ARMANDO Lab Interpretation (test Normal code = 53549-0) [facility]-Wpxpwcfgs1986-85-70 22:43:05 Test Item Value Reference Range Interpretation Comments POC-Potassium (test code 3.4 meq/L 3.6-5.5 L : T ESTED AT [facility] = 1540) 6720 [facility], 770 30: Inspection And Testing Supervisor/Techni kelle ID = [id number] for MARFIL, JOSE ARMANDO Lab Interpretation (test Abnormal code = 10862-3) [facility]-Duwkyk7077-01-22 22:43:05 Test Item Value Reference Range Interpretation Comments POC-Sodium (test code = 137 meq/L 135-148 : TE STED AT [facility] 1542) [address] [place] [address], 770 30: Inspection And Testing Supervisor/Techni kelle ID = [id number] for MARFIL, JOSE ARMANDO Lab Interpretation (test Normal code = 07120-4) [facility]-[id number] 22:43:05 Test Item Value Reference Range Interpretation Comments POC-SODIUM (BEAKER) 137 meq/L 135-148 : TESTED AT [facility] 6720 (test code = 1542) [facility], [address]: Inspection And Testing Supervisor/Techni kelle ID = [id number] for MARF IL, JOSE ARMANDO DMAX-[id number] 22:43:05 Test Item Value Reference Range Interpretation Comments POC-POTASSIUM 3.4 meq/L 3.6-5.5 L : TESTED AT [facility] 6720 (BEAKER) (test code [facility], = 1540) [address]: Inspection And Testing Supervisor/Techni kelle ID = [id number] for JOSE ARMANDO KUMAR POC-Blood gases, [id number] 22:42:59 Test Item Value Reference Range Interpretation Comments Temp. Celsius-POC (test 101.3 code = 1834) FIO2-POC (test code = 28 5) pH, Venous-POC (test 7.484 7.320-7.420 H : TESTE D AT [facility] code = 1842) 6720 [facility], [address] PCO2, Venous-POC (test 39.4 See_Comment L If [...] mated message] code = 1844) The system IAMINTOIT generated this result transmit levi reference range : 25.0 - 40.0 mm Hg. The reference r alba was not used to interpret this result as normal/abnormal . SO2, Venous-POC (test 87.0 % 40.0-70.0 H code = 1845) HCO3, Venous-POC (test 29.3 meq/L 21.0-29.0 H code = 1846) BE, Venous-POC (test 6.0 meq/L -2.0-3.0 H : code = 1847) Inspection And Testing Supervisor/Techni kelle ID = [id number] for HERBERT CELISE Lab Interpretation Abnormal (test code = 19084-0) [facility] [id number] 22:42:59 Test Item Value Reference Range Interpretation Comments Temp. Celsius-POC (test 101.3 code = 1834) FIO2-POC (test code = 28 5) pH, Venous-POC (test 7.484 7.320-7.420 H : TESTE D AT [facility] code = 1842) [address] [facility] [place], [address] PCO2, Venous-POC (test 39.4 See_Comment L If [...] mated message] code = 1844) The system IAMINTOIT generated this result transmit levi reference range : 25.0 - 40.0 mm Hg. The reference r alba was not used to interpret this result as normal/abnormal . SO2, Venous-POC (test 87.0 % 40.0-70.0 H code = 1845) HCO3, Venous-POC (test 29.3 meq/L 21.0-29.0 H code = 1846) BE, Venous-POC (test 6.0 meq/L -2.0-3.0 H : code = 1847) Inspection And Testing Supervisor/Techni kelle ID = [id number] for HERBERT CELISE Lab Interpretation Abnormal (test code = 61592-1) [facility]-Blood gases, [id number] 22:42:59 Test Item Value Reference Range Interpretation Comments Temp. Celsius-POC (test 101.3 code = 1834) FIO2-POC (test code = 28 1835) pH, Venous-POC (test 7.484 7.320-7.420 H : TESTE D AT [facility] code = 1842) [address] [facility] [place], [address] PCO2, Venous-POC (test 39.4 See_Comment L If [...] mated message] code = 1844) The system IAMINTOIT generated this result transmit levi reference range : 25.0 - 40.0 mm Hg. The reference r alba was not used to interpret this result as normal/abnormal . SO2, Venous-POC (test 87.0 % 40.0-70.0 H code = 1845) HCO3, Venous-POC (test 29.3 meq/L 21.0-29.0 H code = 1846) BE, Venous-POC (test 6.0 meq/L -2.0-3.0 H : code = 1847) Inspection And Testing Supervisor/Techni kelle ID = [id number] for MARFIL, JOSE ARMANDO Lab Interpretation Abnormal (test code = 46454-3) [facility]-Blood gases, [id number] 22:42:59 Test Item Value Reference Range Interpretation Comments Temp. Celsius-POC (test 101.3 code = 1834) FIO2-POC (test code = 28 183) pH, Venous-POC (test 7.484 7.320-7.420 H : TESTE D AT [facility] code = 1842) [address] [facility] [place], [address] PCO2, Venous-POC (test 39.4 See_Comment L If [...] mated message] code = 1844) The system IAMINTOIT generated this result transmit levi reference range : 25.0 - 40.0 mm Hg. The reference r alba was not used to interpret this result as normal/abnormal . SO2, Venous-POC (test 87.0 % 40.0-70.0 H code = 1845) HCO3, Venous-POC (test 29.3 meq/L 21.0-29.0 H code = 1846) BE, Venous-POC (test 6.0 meq/L -2.0-3.0 H : code = 1847) Inspection And Testing Supervisor/Techni kelle ID = [id number] for MARFIL, JOSE ARMANDO Lab Interpretation Abnormal (test code = 26936-9) [facility]-Blood gases, [id number] 22:42:59 Test Item Value Reference Range Interpretation Comments Temp. Celsius-POC (test 101.3 code = 1834) FIO2-POC (test code = 28 5) pH, Venous-POC (test 7.484 7.320-7.420 H : TESTE D AT [facility] code = 1842) [address] [facility] [place], [address] PCO2, Venous-POC (test 39.4 See_Comment L If [...] mated message] code = 1844) The system IAMINTOIT generated this result transmit levi reference range : 25.0 - 40.0 mm Hg. The reference r alba was not used to interpret this result as normal/abnormal . SO2, Venous-POC (test 87.0 % 40.0-70.0 H code = 1845) HCO3, Venous-POC (test 29.3 meq/L 21.0-29.0 H code = 1846) BE, Venous-POC (test 6.0 meq/L -2.0-3.0 H : code = 1847) Inspection And Testing Supervisor/Techni kelle ID = [id number] for JOSE ARMANDO CELIS Lab Interpretation Abnormal (test code = 39012-9) [facility]-Blood gases, [id number] 22:42:59 Test Item Value Reference Range Interpretation Comments Temp. Celsius-POC (test 101.3 code = 1834) FIO2-POC (test code = 28 1835) pH, Venous-POC (test 7.484 7.320-7.420 H : TESTE D AT [facility] code = 1842) [address] [facility] [place], [address] PCO2, Venous-POC (test 39.4 See_Comment L If [...] mated message] code = 1844) The system IAMINTOIT generated this result transmit levi reference range : 25.0 - 40.0 mm Hg. The reference r alba was not used to interpret this result as normal/abnormal . SO2, Venous-POC (test 87.0 % 40.0-70.0 H code = 1845) HCO3, Venous-POC (test 29.3 meq/L 21.0-29.0 H code = 1846) BE, Venous-POC (test 6.0 meq/L -2.0-3.0 H : code = 1847) Inspection And Testing Supervisor/Techni kelle ID = [id number] for MARFIL, JOSE ARMANDO Lab Interpretation Abnormal (test code = 12323-1) [facility]-Blood gases, [id number] 22:42:59 Test Item Value Reference Range Interpretation Comments Temp. Celsius-POC (test 101.3 code = 1834) FIO2-POC (test code = 28 1835) pH, Venous-POC (test 7.484 7.320-7.420 H : TESTE D AT [facility] code = 1842) 67[address] [facility], [address] PCO2, Venous-POC (test 39.4 See_Comment L If [...] mated message] code = 1844) The system IAMINTOIT generated this result transmit levi reference range : 25.0 - 40.0 mm Hg. The reference r alba was not used to interpret this result as normal/abnormal . SO2, Venous-POC (test 87.0 % 40.0-70.0 H code = 1845) HCO3, Venous-POC (test 29.3 meq/L 21.0-29.0 H code = 1846) BE, Venous-POC (test 6.0 meq/L -2.0-3.0 H : code = 1847) Inspection And Testing Supervisor/Techni kelle ID = [id number] for MARFIL, JOSE ARMANDO Lab Interpretation Abnormal (test code = 17099-8) [facility]-Blood gases, [id number] 22:42:59 Test Item Value Reference Range Interpretation Comments Temp. Celsius-POC (test 101.3 code = 1834) FIO2-POC (test code = 5) pH, Venous-POC (test 7.484 7.320-7.420 H : TESTE D AT [facility] code = 1842) [address] [facility] [place] [place], [address] PCO2, Venous-POC (test 39.4 See_Comment L If [...] mated message] code = 1844) The system [employer] h generated this result transmit levi reference range : 25.0 - 40.0 mm Hg. The reference r alba was not used to interpret this result as normal/abnormal . SO2, Venous-POC (test 87.0 % 40.0-70.0 H code = 1845) HCO3, Venous-POC (test 29.3 meq/L 21.0-29.0 H code = 1846) BE, Venous-POC (test 6.0 meq/L -2.0-3.0 H : code = 1847) Inspection And Testing Supervisor/Techni kelle ID = [id number] for JOSE ARMANDO CELIS Lab Interpretation Abnormal (test code = 80540-7) [facility]-Blood gases, [id number] 22:42:59 Test Item Value Reference Range Interpretation Comments Temp. Celsius-POC (test 101.3 code = 1834) FIO2-POC (test code = 28 5) pH, Venous-POC (test 7.484 7.320-7.420 H : TESTE D AT [facility] code = 1842) [address] [facility] [place], [address] PCO2, Venous-POC (test 39.4 See_Comment L If [...] mated message] code = 1844) The system IAMINTOIT generated this result transmit levi reference range : 25.0 - 40.0 mm Hg. The reference r alba was not used to interpret this result as normal/abnormal . SO2, Venous-POC (test 87.0 % 40.0-70.0 H code = 1845) HCO3, Venous-POC (test 29.3 meq/L 21.0-29.0 H code = 1846) BE, Venous-POC (test 6.0 meq/L -2.0-3.0 H : code = 1847) Inspection And Testing Supervisor/Techni kelle ID = [id number] for HERBERT CELISE Lab Interpretation Abnormal (test code = 53209-6) [facility]-Blood gases, [id number] 22:42:59 Test Item Value Reference Range Interpretation Comments Temp. Celsius-POC (test 101.3 code = 1834) FIO2-POC (test code = 28 1835) pH, Venous-POC (test 7.484 7.320-7.420 H : TESTE D AT [facility] code = 1842) [address] [facility] [address] PCO2, Venous-POC (test 39.4 See_Comment L If [...] mated message] code = 1844) The system IAMINTOIT generated this result transmit levi reference range : 25.0 - 40.0 mm Hg. The reference r alba was not used to interpret this result as normal/abnormal . SO2, Venous-POC (test 87.0 % 40.0-70.0 H code = 1845) HCO3, Venous-POC (test 29.3 meq/L 21.0-29.0 H code = 1846) BE, Venous-POC (test 6.0 meq/L -2.0-3.0 H : code = 1847) Inspection And Testing Supervisor/Techni kelle ID = [id number] for MARFIL, JOSE ARMANDO Lab Interpretation Abnormal (test code = 03495-2) [facility]-Blood gases, [id number] 22:42:59 Test Item Value Reference Range Interpretation Comments Temp. Celsius-POC (test 101.3 code = 1834) FIO2-POC (test code = 28 1834) pH, Venous-POC (test 7.484 7.320-7.420 H : TESTE D AT [facility] code = 1842) [address] [facility] [place], [address] PCO2, Venous-POC (test 39.4 See_Comment L If [...] mated message] code = 1844) The system IAMINTOIT generated this result transmit levi reference range : 25.0 - 40.0 mm Hg. The reference r alba was not used to interpret this result as normal/abnormal . SO2, Venous-POC (test 87.0 % 40.0-70.0 H code = 1845) HCO3, Venous-POC (test 29.3 meq/L 21.0-29.0 H code = 1846) BE, Venous-POC (test 6.0 meq/L -2.0-3.0 H : code = 1847) Inspection And Testing Supervisor/Techni kelle ID = [id number] for MARFIL, JOSE ARMANDO Lab Interpretation Abnormal (test code = 97312-2) [facility]-Blood gases, [id number] 22:42:59 Test Item Value Reference Range Interpretation Comments Temp. Celsius-POC (test 101.3 code = 1834) FIO2-POC (test code = 28 5) pH, Venous-POC (test 7.484 7.320-7.420 H : TESTE D AT [facility] code = 1842) [address] [facility] [place], [address] PCO2, Venous-POC (test 39.4 See_Comment L If [...] mated message] code = 1844) The system [employer] h generated this result transmit levi reference range : 25.0 - 40.0 mm Hg. The reference r alba was not used to interpret this result as normal/abnormal . SO2, Venous-POC (test 87.0 % 40.0-70.0 H code = 1845) HCO3, Venous-POC (test 29.3 meq/L 21.0-29.0 H code = 1846) BE, Venous-POC (test 6.0 meq/L -2.0-3.0 H : code = 1847) Inspection And Testing Supervisor/Techni kelle ID = [id number] for JOSE ARMANDO CELIS Lab Interpretation Abnormal (test code = 43508-5) [facility], [id number] 22:42:59 Test Item Value Reference Range Interpretation Comments TEMP, CELSIUS-POC 101.3 (BEAKER) (test code = 1834) FIO2-POC (BEAKER) 28 (test code = 1835) PH, VENOUS-POC 7.484 7.320-7.420 H : TESTED AT [facility] 6720 (BEAKER) (test code [facility], = 1842) [address] PCO2, VENOUS-POC 39.4 mm Hg 41.0-51.0 L [...] BASE EXCESS, 6.0 meq/L -2.0-3.0 H : Inspection And Testing Supervisor/Tech nician ID VENOUS-POC (BEAKER) = [id number] for MARFIL, (test code = 1847) JOSE ARMANDO LACTIC ACID, [id number] 22:23:56 Test Item Value Reference Range Interpretation Comments LACTATE BLOOD VENOUS 0.92 mmol/L 0.50-2.20 Specime n moderately (2) (BEAKER) (test hemolyzed code = 2872) Inspection And Testing Supervisor ID - BSPOCT-GLUCOSE [id number] 21:35:23 Test Item Value Reference Range Interpretation Comments POC-GLUCOSE METER 125 mg/dL 70-110 H : TESTED A T [facility] 6720 (BEAKER) (test code = [facility], 1538) [address]: Inspection And Testing Supervisor/Techni kelle ID = [id number] for UG EM HAMLINA POCT-GLUCOSE [id number] 17:05:43 Test Item Value Reference Range Interpretation Comments POC-GLUCOSE METER 224 mg/dL 70-110 H : TESTED A T [facility] 6720 (BEAKER) (test code = [facility], 1538) [address]: Inspection And Testing Supervisor/Techni kelle ID = [id number] for Re yes, Maranda POCT-GLUCOSE [id number] 16:33:44 Test Item Value Reference Range Interpretation Comments POC-GLUCOSE METER 108 mg/dL 70-110 : TESTED A T [facility] 6720 (BEAKER) (test code = [facility], 1538) [address]: Inspection And Testing Supervisor/Techni kelle ID = [id number] for Ag Herminia ball POCT-GLUCOSE [id number] 07:38:21 Test Item Value Reference Range Interpretation Comments POC-GLUCOSE METER 185 mg/dL 70-110 H : TESTED A T [facility] 6720 (BEAKER) (test code = [facility], 1538) [address]: Inspection And Testing Supervisor/Techni kelle ID = [id number] for Re yes, Maranda BASIC METABOLIC [id number] 07:20:13 Test Item Value Reference Range Interpretation [...] S NOT APPLICABLE FOR DIALYSIS PATIEN TS. Inspection And Testing Supervisor ID - HIEN [id number] 06:54:10 Test Item Value Reference Range Interpretation Comments PHOSPHORUS (BEAKER) (test code = 4.6 mg/dL 2.3-4.7 604) Inspection And Testing Supervisor ID - HIEN [id number] 06:54:09 Test Item Value Reference Range Interpretation Comments MAGNESIUM (BEAKER) (test code = 2.2 mg/dL 1.6-2.6 627) Inspection And Testing Supervisor ID - HIEN [facility] W/PLT COUNT & AUTO [id number] 04:53:46 Test Item Value Reference Range Interpretation [...] PERCENT (BEAKER) (test code = 2801) POCT-GLUCOSE [id number] 21:34:14 Test Item Value Reference Range Interpretation Comments POC-GLUCOSE METER 260 mg/dL 70-110 H : TESTED A T [facility] 6720 (BEAKER) (test code = [facility], 1538) [address]: Inspection And Testing Supervisor/Techni kelle ID = [id number] for GHADA BECK POCT-GLUCOSE [id number] 16:27:30 Test Item Value Reference Range Interpretation Comments POC-GLUCOSE METER 170 mg/dL 70-110 H : TESTED A T [facility] 6720 (BEAKER) (test code = [facility], 1538) [address]: Inspection And Testing Supervisor/Techni kelle ID = [id number] for Soldead Rivera 2D Echo W/Doppler(CW/PW/Color)2021-06-09 16:08:58Ejection FractionSLEH [facility]CHO [facility]Do[facility](CW/PW/Color)2021-06-09 16:08:58Ejection FractionSLEH ECHO HEARTLAB [facility]2D Echo W/Doppler(CW/PW/Color) 2021-06-09 16:08:58Ejection FractionSLEH ECHO HEARTLAB [facility]2D Echo W/Doppler(CW/PW/Color)2021-06-09 16:08:58Ejection FractionSLEH ECHO HEARTLAB [facility]2D Echo W/Doppler(CW/PW/Color)2021-06-09 16:08:58Ejection FractionSLEH ECHO HEARTLAB [facility]2D Echo W/Doppler(CW/PW/Color) 2021-06-09 16:08:58Ejection FractionSLEH ECHO HEARTLAB [facility]2D Echo W/Doppler(CW/PW/Color)2021-06-09 16:08:58Ejection FractionSLE ECHO HEARTLAB [facility]2D Echo W/Doppler(CW/PW/Color)2021-06-09 16:08:58Ejection FractionSLEH ECHO HEARTLAB [facility]2D Echo W/Doppler(CW/PW/Color) 2021-06-09 16:08:58Ejection FractionSLEH ECHO HEARTLAB [facility]2D Echo W/Doppler(CW/PW/Color)2021-06-09 16:08:58Ejection FractionSLEH ECHO HEARTLAB [facility]2D Echo W/Doppler(CW/PW/Color)2021-06-09 16:08:58Ejection FractionSLEH ECHO HEARTLAB [facility] Echo W/Doppler(CW/PW/Color) 2021-06-09 16:08:58Ejection FractionSLEH ECHO HEARTLAB [facility] [id number] 16:06:54Ejection FractionSLEH ECHO [facility]ARTLAB [facility] 16:06:54Ejection FractionSLEH ECHO HEARTLAB [facility] [id number] 16:06:54Ejection FractionSLEH ECHO HEARTLAB [facility] 2021-06-09 16:06:54Ejection FractionSLEH ECHO HEARTLAB [facility] [id number] 16:06:54Ejection FractionSLEH ECHO HEARTLAB [facility] 2021-06-09 16:06:54Ejection FractionSLEH ECHO HEARTLAB [facility] [id number] 16:06:54Ejection FractionSLEH ECHO HEARTLAB [facility] 2021-06-09 16:06:54Ejection FractionSLEH ECHO HEARTLAB [facility] [id number] 16:06:54Ejection FractionSLEH ECHO HEARTLAB [facility] 2021-06-09 16:06:54Ejection FractionSLEH ECHO HEARTLAB [facility] [id number] 16:06:54Ejection FractionSLEH ECHO HEARTLAB [facility] 2021-06-09 16:06:54Ejection FractionSLEH ECHO HEARTLAB [facility] [id number] 06:23:12 Test Item Value Reference Range Interpretation Comments POC-GLUCOSE METER 250 mg/dL 70-110 H : TESTED A T [facility] 6720 (AKASH) (test code = [place], 1538) [address]: Inspection And Testing Supervisor/Techni kelle ID = [id number] for Tavia Bruce BASIC METABOLIC [id number] 04:37:07 Test Item Value Reference Range Interpretation [...] S NOT APPLICABLE FOR DIALYSIS PATIEN TS. Inspection And Testing Supervisor ID Bassam [place] [id number] 04:30:49 Test Item Value Reference Range Interpretation Comments PHOSPHORUS (BEAKER) (test code = 3.8 mg/dL 2.3-4.7 604) Inspection And Testing Supervisor ID Bassam [place] [id number] 04:30:48 Test Item Value Reference Range Interpretation Comments MAGNESIUM (BEAKER) (test code = 2.0 mg/dL 1.6-2.6 627) Inspection And Testing Supervisor ID Bassam BLED[place]E WCBC W/PLT COUNT & AUTO [id number] 03:53:11 Test Item Value Reference Range Interpretation [...] (BEAKER) (test code = 2801) Hepatitis panel, [id number] 23:49:54 Test Item Value Reference Range Interpretation Comments Hep A IgM (test code = Nonreactive Nonreactive 08296-4) Hep B C IgM (test code = Nonreactive Nonreactive 20725-8) Hepatitis C Ab (test code = Nonreactive Nonreactive 57591-5) Hepatitis B surface antigen Nonreactive Nonreactive (test code = 5195-3) BRANDI (test code = BRANDI) Inspection And Testing Supervisor ID - DB Lab Interpretation (test Normal code = 57666-7) [facility] panel, [id number] 23:49:54 Test Item Value Reference Range Interpretation Comments Hep A IgM (test code = Nonreactive Nonreactive 75938-8) Hep B C IgM (test code = Nonreactive Nonreactive 91167-4) Hepatitis C Ab (test code = Nonreactive Nonreactive 01634-8) Hepatitis B surface antigen Nonreactive Nonreactive (test code = 5195-3) BRANDI (test code = BRANDI) Inspection And Testing Supervisor ID - DB Lab Interpretation (test Normal code = 63884-9) [facility] panel, [id number] 23:49:54 Test Item Value Reference Range Interpretation Comments Hep A IgM (test code = Nonreactive Nonreactive 30016-9) Hep B C IgM (test code = Nonreactive Nonreactive 64280-1) Hepatitis C Ab (test code = Nonreactive Nonreactive 50984-5) Hepatitis B surface antigen Nonreactive Nonreactive (test code = 5195-3) BRANDI (test code = BRANDI) Inspection And Testing Supervisor ID - DB Lab Interpretation (test Normal code = 80521-1) [facility] panel, [id number] 23:49:54 Test Item Value Reference Range Interpretation Comments Hep A IgM (test code = Nonreactive Nonreactive 79476-5) Hep B C IgM (test code = Nonreactive Nonreactive 70754-6) Hepatitis C Ab (test code = Nonreactive Nonreactive 44323-6) Hepatitis B surface antigen Nonreactive Nonreactive (test code = 5195-3) BRANDI (test code = BRANDI) Inspection And Testing Supervisor ID - DB Lab Interpretation (test Normal code = 56763-2) [facility] panel, [id number] 23:49:54 Test Item Value Reference Range Interpretation Comments Hep A IgM (test code = Nonreactive Nonreactive 26528-8) Hep B C IgM (test code = Nonreactive Nonreactive 43619-7) Hepatitis C Ab (test code = Nonreactive Nonreactive 84871-1) Hepatitis B surface antigen Nonreactive Nonreactive (test code = 5195-3) BRANDI (test code = BRANDI) Inspection And Testing Supervisor ID - DB Lab Interpretation (test Normal code = 85837-1) [facility] panel, [id number] 23:49:54 Test Item Value Reference Range Interpretation Comments Hep A IgM (test code = Nonreactive Nonreactive 99374-9) Hep B C IgM (test code = Nonreactive Nonreactive 19087-2) Hepatitis C Ab (test code = Nonreactive Nonreactive 15055-9) Hepatitis B surface antigen Nonreactive Nonreactive (test code = 5195-3) BRANDI (test code = BRANDI) Inspection And Testing Supervisor ID - DB Lab Interpretation (test Normal code = 96104-6) [facility] panel, [id number] 23:49:54 Test Item Value Reference Range Interpretation Comments Hep A IgM (test code = Nonreactive Nonreactive 05326-0) Hep B C IgM (test code = Nonreactive Nonreactive 18562-7) Hepatitis C Ab (test code = Nonreactive Nonreactive 71871-4) Hepatitis B surface antigen Nonreactive Nonreactive (test code = 5195-3) BRANDI (test code = BRANDI) Inspection And Testing Supervisor ID - DB Lab Interpretation (test Normal code = 92073-6) [facility] panel, [id number] 23:49:54 Test Item Value Reference Range Interpretation Comments Hep A IgM (test code = Nonreactive Nonreactive 46571-1) Hep B C IgM (test code = Nonreactive Nonreactive 98381-8) Hepatitis C Ab (test code = Nonreactive Nonreactive 16555-1) Hepatitis B surface antigen Nonreactive Nonreactive (test code = 5195-3) BRANDI (test code = BRANDI) Inspection And Testing Supervisor ID - DB Lab Interpretation (test Normal code = 13481-3) [facility] panel, [id number] 23:49:54 Test Item Value Reference Range Interpretation Comments Hep A IgM (test code = Nonreactive Nonreactive 91698-9) Hep B C IgM (test code = Nonreactive Nonreactive 07219-7) Hepatitis C Ab (test code = Nonreactive Nonreactive 26299-1) Hepatitis B surface antigen Nonreactive Nonreactive (test code = 5195-3) BRANDI (test code = BRANDI) Inspection And Testing Supervisor ID - DB Lab Interpretation (test Normal code = 28743-8) [facility] panel, [id number] 23:49:54 Test Item Value Reference Range Interpretation Comments Hep A IgM (test code = Nonreactive Nonreactive 44398-0) Hep B C IgM (test code = Nonreactive Nonreactive 66955-3) Hepatitis C Ab (test code = Nonreactive Nonreactive 59024-5) Hepatitis B surface antigen Nonreactive Nonreactive (test code = 5195-3) BRANDI (test code = BRANDI) Inspection And Testing Supervisor ID - DB Lab Interpretation (test Normal code = 90502-6) [facility] panel, [id number] 23:49:54 Test Item Value Reference Range Interpretation Comments Hep A IgM (test code = Nonreactive Nonreactive 37640-4) Hep B C IgM (test code = Nonreactive Nonreactive 59504-0) Hepatitis C Ab (test code = Nonreactive Nonreactive 26460-3) Hepatitis B surface antigen Nonreactive Nonreactive (test code = 5195-3) BRANDI (test code = BRANDI) Inspection And Testing Supervisor ID - DB Lab Interpretation (test Normal code = 59049-9) [facility] panel, [id number] 23:49:54 Test Item Value Reference Range Interpretation Comments Hep A IgM (test code = Nonreactive Nonreactive 38189-9) Hep B C IgM (test code = Nonreactive Nonreactive 03291-7) Hepatitis C Ab (test code = Nonreactive Nonreactive 19664-0) Hepatitis B surface antigen Nonreactive Nonreactive (test code = 5195-3) BRANDI (test code = BRANDI) Inspection And Testing Supervisor ID - DB Lab Interpretation (test Normal code = 79712-7) [facility] PANEL, [id number] 23:49:54 Test Item Value Reference Range Interpretation Comments HEPATITIS A IGM ANTIBODY (BEAKER) Nonreactive Nonreactive (test code = 498) HEPATITIS B CORE IGM ANTIBODY Nonreactive Nonreactive (BEAKER) (test code = 645) HEPATITIS C ANTIBODY (BEAKER) Nonreactive Nonreactive (test code = 367) HEPATITIS B SURFACE ANTIGEN (2) Nonreactive Nonreactive (BEAKER) (test code = 2585) Inspection And Testing Supervisor ID - DBPOCT-GLUCOSE [id number] 21:22:04 Test Item Value Reference Range Interpretation Comments POC-GLUCOSE METER 193 mg/dL 70-110 H : TESTED A T [facility] 6720 (BEAKER) (test code = YUDY WHITE [place], 1538) 03855: Inspection And Testing Supervisor/Techni kelle ID = [id number] for Tavia Bruce Hepatitis B surface [id number] 13:29:36 Test Item Value Reference Range Interpretation Comments Hepatitis B surface Nonreactive Nonreactive antigen (test code = 5195-3) BRANDI (test code = BRANDI) Specimen is considered negative for HBsAg. Lab Interpretation (test Normal code = 18770-2) [facility] [id number] 13:29:36 Test Item Value Reference Range Interpretation Comments Hepatitis B surface Nonreactive Nonreactive antigen (test code = 5195-3) BRANDI (test code = BRANDI) Specimen is considered negative for HBsAg. Lab Interpretation (test Normal code = 15719-3) [facility] [id number] 13:29:36 Test Item Value Reference Range Interpretation Comments Hepatitis B surface Nonreactive Nonreactive antigen (test code = 5195-3) BRANDI (test code = BRANDI) Specimen is considered negative for HBsAg. Lab Interpretation (test Normal code = 63676-4) [facility] [id number] 13:29:36 Test Item Value Reference Range Interpretation Comments Hepatitis B surface Nonreactive Nonreactive antigen (test code = 5195-3) BRANDI (test code = BRANDI) Specimen is considered negative for HBsAg. Lab Interpretation (test Normal code = 27312-1) [facility] [id number] 13:29:36 Test Item Value Reference Range Interpretation Comments Hepatitis B surface Nonreactive Nonreactive antigen (test code = 5195-3) BRANDI (test code = BRANDI) Specimen is considered negative for HBsAg. Lab Interpretation (test Normal code = 30950-4) [facility] [id number] 13:29:36 Test Item Value Reference Range Interpretation Comments Hepatitis B surface Nonreactive Nonreactive antigen (test code = 5195-3) BRANDI (test code = BRANDI) Specimen is considered negative for HBsAg. Lab Interpretation (test Normal code = 33819-4) [facility] [id number] 13:29:36 Test Item Value Reference Range Interpretation Comments Hepatitis B surface Nonreactive Nonreactive antigen (test code = 5195-3) BRANDI (test code = BRANDI) Specimen is considered negative for HBsAg. Lab Interpretation (test Normal code = 34184-9) [facility] [id number] 13:29:36 Test Item Value Reference Range Interpretation Comments Hepatitis B surface Nonreactive Nonreactive antigen (test code = 5195-3) BRANDI (test code = BRANDI) Specimen is considered negative for HBsAg. Lab Interpretation (test Normal code = 30595-5) [facility] B surface [id number] 13:29:36 Test Item Value Reference Range Interpretation Comments Hepatitis B surface Nonreactive Nonreactive antigen (test code = 5195-3) BRANDI (test code = BRANDI) Specimen is considered negative for HBsAg. Lab Interpretation (test Normal code = 58225-0) [facility] B surface [id number] 13:29:36 Test Item Value Reference Range Interpretation Comments Hepatitis B surface Nonreactive Nonreactive antigen (test code = 5195-3) BRANDI (test code = BRANDI) Specimen is considered negative for HBsAg. Lab Interpretation (test Normal code = 35883-1) [facility] [id number] 13:29:36 Test Item Value Reference Range Interpretation Comments Hepatitis B surface Nonreactive Nonreactive antigen (test code = 5195-3) BRANDI (test code = BRANDI) Specimen is considered negative for HBsAg. Lab Interpretation (test Normal code = 71997-2) [facility] [id number] 13:29:36 Test Item Value Reference Range Interpretation Comments Hepatitis B surface Nonreactive Nonreactive antigen (test code = 5195-3) BRANDI (test code = BRANDI) Specimen is considered negative for HBsAg. Lab Interpretation (test Normal code = 59392-7) [facility] B SURFACE [id number] 13:29:36 Test Item Value Reference Range Interpretation Comments HEPATITIS B SURFACE ANTIGEN (2) Nonreactive Nonreactive (BEAKER) (test code = 2585) Specimen is considered negative for HBsAg.U/S, ABDOMINAL, [id number] 13:10:00Abdomen limited area? Add comment if clarification is needed.- >LiverReason for exam:->hepatic nodularity reported [facility] : 1955 Sex: FFINAL REPORT TECHNIQUE: Grayscale [...] disease to exclude cirrhosis. Signed: Florian Webb MDReport Verified Date/Time: 06/08/2021 13:10:45 SARS-COV2/RT-PCR ([facility]) 2021-06-08 12:35:29 Test Item Value Reference Range Interpretation Comments SARS-COV2/RT-PCR (test Negative Not Detected, Negative, code = 5681147) See external report for linked test SARS-COV-[address] [facility] FILIPE (test code = 9195084) Negative result for this test determines that [...] 564(g) of the Act.Fact Sheet for Healthcare Providers:https://www.ShedWorx.[employer]/sites/default/files/product/documents/Fact_Shee q_TY_Riptujfku_Rkrz_BYYW-KaD-3.pdfFact Sheet for Healthcare Patients:https://www.[employer]/sites/default/files/product/ documents/Ursx_Ippag_Qmfrcjxv_Dmeq_SLSU-YzG-5.pdfPerforming Laboratory:[facility], [place] [address]Wtcmhuz D, 25-Hydroxy 2021-06-08 11:10:06 Test Item Value Reference Range Interpretation Comments Vitamin D 25-Hydroxy 16.7 ng/mL 6.6-49.9 (test code = 2764) BRANDI (test code = BRANDI) Effective 01/12/2017: Reference Range ChangeNew: 6.6-49.9 ng/mL Previous: 13.0-47.8 ng/mL Recommended Vitamin D Target Range: 30.0-40.0 ng/mLOperator ID - DB Lab Interpretation (test Normal code = 13226-8) [facility], [id number] 11:10:06 Test Item Value Reference Range Interpretation Comments Vitamin D 25-Hydroxy 16.7 ng/mL 6.6-49.9 (test code = 2764) BRANDI (test code = BRNADI) Effective 01/12/2017: Reference Range ChangeNew: 6.6-49.9 ng/mL Previous: 13.0-47.8 ng/mL Recommended Vitamin D Target Range: 30.0-40.0 ng/mLOperator ID - DB Lab Interpretation (test Normal code = 57052-2) [facility], 97-[id number] 11:10:06 Test Item Value Reference Range Interpretation Comments Vitamin D 25-Hydroxy 16.7 ng/mL 6.6-49.9 (test code = 2764) BRANDI (test code = BRANDI) Effective 01/12/2017: Reference Range ChangeNew: 6.6-49.9 ng/mL Previous: 13.0-47.8 ng/mL Recommended Vitamin D Target Range: 30.0-40.0 ng/mLOperator ID - DB Lab Interpretation (test Normal code = 33978-6) [facility], 39-[id number] 11:10:06 Test Item Value Reference Range Interpretation Comments Vitamin D 25-Hydroxy 16.7 ng/mL 6.6-49.9 (test code = 2764) BRANDI (test code = BRANDI) Effective 01/12/2017: Reference Range ChangeNew: 6.6-49.9 ng/mL Previous: 13.0-47.8 ng/mL Recommended Vitamin D Target Range: 30.0-40.0 ng/mLOperator ID - DB Lab Interpretation (test Normal code = 48571-7) [facility], 05-[id number] 11:10:06 Test Item Value Reference Range Interpretation Comments Vitamin D 25-Hydroxy 16.7 ng/mL 6.6-49.9 (test code = 2764) BRANDI (test code = BRANDI) Effective 01/12/2017: Reference Range ChangeNew: 6.6-49.9 ng/mL Previous: 13.0-47.8 ng/mL Recommended Vitamin D Target Range: 30.0-40.0 ng/mLOperator ID - DB Lab Interpretation (test Normal code = 43965-6) [facility], 01-[id number] 11:10:06 Test Item Value Reference Range Interpretation Comments Vitamin D 25-Hydroxy 16.7 ng/mL 6.6-49.9 (test code = 2764) BRANDI (test code = BRANDI) Effective 01/12/2017: Reference Range ChangeNew: 6.6-49.9 ng/mL Previous: 13.0-47.8 ng/mL Recommended Vitamin D Target Range: 30.0-40.0 ng/mLOperator ID - DB Lab Interpretation (test Normal code = 29607-9) [facility], 49-[id number] 11:10:06 Test Item Value Reference Range Interpretation Comments Vitamin D 25-Hydroxy 16.7 ng/mL 6.6-49.9 (test code = 2764) BRANDI (test code = BRANDI) Effective 01/12/2017: Reference Range ChangeNew: 6.6-49.9 ng/mL Previous: 13.0-47.8 ng/mL Recommended Vitamin D Target Range: 30.0-40.0 ng/mLOperator ID - DB Lab Interpretation (test Normal code = 78948-6) [facility], 33-[id number] 11:10:06 Test Item Value Reference Range Interpretation Comments Vitamin D 25-Hydroxy 16.7 ng/mL 6.6-49.9 (test code = 2764) BRANDI (test code = BRANDI) Effective 01/12/2017: Reference Range ChangeNew: 6.6-49.9 ng/mL Previous: 13.0-47.8 ng/mL Recommended Vitamin D Target Range: 30.0-40.0 ng/mLOperator ID - DB Lab Interpretation (test Normal code = 69106-4) [facility], 22-Nuaejrl5619-13-07 11:10:06 Test Item Value Reference Range Interpretation Comments Vitamin D 25-Hydroxy 16.7 ng/mL 6.6-49.9 (test code = 2764) BRANDI (test code = BRANDI) Effective 01/12/2017: Reference Range ChangeNew: 6.6-49.9 ng/mL Previous: 13.0-47.8 ng/mL Recommended Vitamin D Target Range: 30.0-40.0 ng/mLOperator ID - DB Lab Interpretation (test Normal code = 08721-6) [facility], 15-Dxvmwcm1190-01-07 11:10:06 Test Item Value Reference Range Interpretation Comments Vitamin D 25-Hydroxy 16.7 ng/mL 6.6-49.9 (test code = 2764) BRANDI (test code = BRANDI) Effective 01/12/2017: Reference Range ChangeNew: 6.6-49.9 ng/mL Previous: 13.0-47.8 ng/mL Recommended Vitamin D Target Range: 30.0-40.0 ng/mLOperator ID - DB Lab Interpretation (test Normal code = 59406-1) [facility], 03-Lwujcdw2829-46-07 11:10:06 Test Item Value Reference Range Interpretation Comments Vitamin D 25-Hydroxy 16.7 ng/mL 6.6-49.9 (test code = 2764) BRANDI (test code = BRANDI) Effective 01/12/2017: Reference Range ChangeNew: 6.6-49.9 ng/mL Previous: 13.0-47.8 ng/mL Recommended Vitamin D Target Range: 30.0-40.0 ng/mLOperator ID - DB Lab Interpretation (test Normal code = 47004-9) [facility], 29-Xqiytpi2430-58-07 11:10:06 Test Item Value Reference Range Interpretation Comments Vitamin D 25-Hydroxy 16.7 ng/mL 6.6-49.9 (test code = 2764) BRANDI (test code = BRANDI) Effective 01/12/2017: Reference Range ChangeNew: 6.6-49.9 ng/mL Previous: 13.0-47.8 ng/mL Recommended Vitamin D Target Range: 30.0-40.0 ng/mLOperator ID - DB Lab Interpretation (test Normal code = 87316-4) [facility], 36-[id number] 11:10:06 Test Item Value Reference Range Interpretation Comments VITAMIN D 25-OH (BEAKER) (test 16.7 ng/mL 6.6-49.9 code = 2764) Effective 01/12/2017: Reference Range ChangeNew: 6.6-49.9 ng/mL Previous: 13.0-47.8 ng/mLRecommended Vitamin D Target Range: 30.0-40.0 ng/mLOperator ID - DBPTH, [id number] 11:05:08 Test Item Value Reference Range Interpretation Comments PTH (test code = 2731-8) 449.7 pg/mL 8.5-72.5 H BRANDI (test code = BRANDI) Inspection And Testing Supervisor ID - ADMIN Lab Interpretation (test Abnormal code = 06898-2) [facility], [id number] 11:05:08 Test Item Value Reference Range Interpretation Comments PTH (test code = 2731-8) 449.7 pg/mL 8.5-72.5 H BRANDI (test code = BRANDI) Inspection And Testing Supervisor ID - ADMIN Lab Interpretation (test Abnormal code = 01539-8) [facility], [id number] 11:05:08 Test Item Value Reference Range Interpretation Comments PTH (test code = 2731-8) 449.7 pg/mL 8.5-72.5 H BRANDI (test code = BRANDI) Inspection And Testing Supervisor ID - ADMIN Lab Interpretation (test Abnormal code = 67612-1) [facility], [id number] 11:05:08 Test Item Value Reference Range Interpretation Comments PTH (test code = 2731-8) 449.7 pg/mL 8.5-72.5 H BRANDI (test code = BRANDI) Inspection And Testing Supervisor ID - ADMIN Lab Interpretation (test Abnormal code = 54627-0) [facility], [id number] 11:05:08 Test Item Value Reference Range Interpretation Comments PTH (test code = 2731-8) 449.7 pg/mL 8.5-72.5 H BRANDI (test code = BRANDI) Inspection And Testing Supervisor ID - ADMIN Lab Interpretation (test Abnormal code = 12792-1) [facility], [id number] 11:05:08 Test Item Value Reference Range Interpretation Comments PTH (test code = 2731-8) 449.7 pg/mL 8.5-72.5 H BRANDI (test code = BRANDI) Inspection And Testing Supervisor ID - ADMIN Lab Interpretation (test Abnormal code = 87563-4) [facility], [id number] 11:05:08 Test Item Value Reference Range Interpretation Comments PTH (test code = 2731-8) 449.7 pg/mL 8.5-72.5 H BRANDI (test code = BRANDI) Inspection And Testing Supervisor ID - ADMIN Lab Interpretation (test Abnormal code = 59014-0) [facility], [id number] 11:05:08 Test Item Value Reference Range Interpretation Comments PTH (test code = 2731-8) 449.7 pg/mL 8.5-72.5 H BRANDI (test code = BRANDI) Inspection And Testing Supervisor ID - ADMIN Lab Interpretation (test Abnormal code = 83149-6) [facility], [id number] 11:05:08 Test Item Value Reference Range Interpretation Comments PTH (test code = 2731-8) 449.7 pg/mL 8.5-72.5 H BRANDI (test code = BRANDI) Inspection And Testing Supervisor ID - ADMIN Lab Interpretation (test Abnormal code = 42465-2) [facility], [id number] 11:05:08 Test Item Value Reference Range Interpretation Comments PTH (test code = 2731-8) 449.7 pg/mL 8.5-72.5 H BRANDI (test code = BRANDI) Inspection And Testing Supervisor ID - ADMIN Lab Interpretation (test Abnormal code = 29373-3) [facility], [id number] 11:05:08 Test Item Value Reference Range Interpretation Comments PTH (test code = 2731-8) 449.7 pg/mL 8.5-72.5 H BRANDI (test code = BRANDI) Inspection And Testing Supervisor ID - ADMIN Lab Interpretation (test Abnormal code = 77652-1) [facility], [id number] 11:05:08 Test Item Value Reference Range Interpretation Comments PTH (test code = 2731-8) 449.7 pg/mL 8.5-72.5 H BRANDI (test code = BRANDI) Inspection And Testing Supervisor ID - ADMIN Lab Interpretation (test Abnormal code = 39942-1) [facility], [id number] 11:05:08 Test Item Value Reference Range Interpretation Comments PARATHYROID HORMONE INTACT 449.7 pg/mL 8.5-72.5 H (BEAKER) (test code = 577) Inspection And Testing Supervisor ID - [id number] 09:50:35 Test Item Value Reference Range Interpretation Comments FERRITIN (BEAKER) (test code = 926.02 ng/mL 5.00-275.00 H 361) Inspection And Testing Supervisor ID - ADMINIRON, TIBC, % SAT. (WITHOUT FERRITIN)2021-06-08 09:30:51 Test Item Value Reference Range Interpretation Comments IRON (BEAKER) (test code = 547) 110.0 ug/dL 40.0-160.0 TOTAL IRON BINDING CAPACITY 135 ug/dL 250-450 L (BEAKER) (test code = 769) IRON % SATURATION (2) (BEAKER) 81 % 20-55 H (test code = 2590) Inspection And Testing Supervisor ID - ADMINPOCT-GLUCOSE [id number] 07:11:26 Test Item Value Reference Range Interpretation Comments POC-GLUCOSE METER 199 mg/dL 70-110 H [facility] ([facility]ER) (test code = YUDY WHITE [place], 1538) [address]: Inspection And Testing Supervisor/Techni kelle ID = [id number] for Tavia Bruce Vitamin [id number] 06:28:47 Test Item Value Reference Range Interpretation Comments Vitamin B12 (test code = 1626 pg/mL 213-816 H 2131-9) BRANDI (test code = BRANDI) Inspection And Testing Supervisor ID - ADMIN Lab Interpretation (test Abnormal code = 04110-2) [facility] [id number] 06:28:47 Test Item Value Reference Range Interpretation Comments Vitamin B12 (test code = 1626 pg/mL 213-816 H 2132-9) BRANDI (test code = BRANDI) Inspection And Testing Supervisor ID - ADMIN Lab Interpretation (test Abnormal code = 73514-8) [facility] [id number] 06:28:47 Test Item Value Reference Range Interpretation Comments Vitamin B12 (test code = 1626 pg/mL 213-816 H 2132-9) BRANDI (test code = BRANDI) Inspection And Testing Supervisor ID - ADMIN Lab Interpretation (test Abnormal code = 84162-7) [facility] [id number] 06:28:47 Test Item Value Reference Range Interpretation Comments Vitamin B12 (test code = 1626 pg/mL 213-816 H 2132-9) BRANDI (test code = BRANDI) Inspection And Testing Supervisor ID - ADMIN Lab Interpretation (test Abnormal code = 03553-6) [facility] [id number] 06:28:47 Test Item Value Reference Range Interpretation Comments Vitamin B12 (test code = 1626 pg/mL 213-816 H 2132-9) BRANDI (test code = BRANDI) Inspection And Testing Supervisor ID - ADMIN Lab Interpretation (test Abnormal code = 75982-5) [facility] [id number] 06:28:47 Test Item Value Reference Range Interpretation Comments Vitamin B12 (test code = 1626 pg/mL 213-816 H 2132-9) BRANDI (test code = BRANDI) Inspection And Testing Supervisor ID - ADMIN Lab Interpretation (test Abnormal code = 49588-5) [facility] [id number] 06:28:47 Test Item Value Reference Range Interpretation Comments Vitamin B12 (test code = 1626 pg/mL 213-816 H 2132-9) BRANDI (test code = BRANDI) Inspection And Testing Supervisor ID - ADMIN Lab Interpretation (test Abnormal code = 77717-2) [facility] [id number] 06:28:47 Test Item Value Reference Range Interpretation Comments Vitamin B12 (test code = 1626 pg/mL 213-816 H 2132-9) BRANDI (test code = BRANDI) Inspection And Testing Supervisor ID - ADMIN Lab Interpretation (test Abnormal code = 60388-4) [facility] [id number] 06:28:47 Test Item Value Reference Range Interpretation Comments Vitamin B12 (test code = 1626 pg/mL 213-816 H 2132-9) BRANDI (test code = BRANDI) Inspection And Testing Supervisor ID - ADMIN Lab Interpretation (test Abnormal code = 69266-1) [facility] [id number] 06:28:47 Test Item Value Reference Range Interpretation Comments Vitamin B12 (test code = 1626 pg/mL 213-816 H 2132-9) BRANDI (test code = BRANDI) Inspection And Testing Supervisor ID - ADMIN Lab Interpretation (test Abnormal code = 57176-3) [facility] [id number] 06:28:47 Test Item Value Reference Range Interpretation Comments Vitamin B12 (test code = 1626 pg/mL 213-816 H 2132-9) BRANDI (test code = BRANDI) Inspection And Testing Supervisor ID - ADMIN Lab Interpretation (test Abnormal code = 30808-0) [facility] [id number] 06:28:47 Test Item Value Reference Range Interpretation Comments Vitamin B12 (test code = 1626 pg/mL 213-816 H 2132-9) BRANDI (test code = BRANDI) Inspection And Testing Supervisor ID - ADMIN Lab Interpretation (test Abnormal code = 06888-4) [facility] [id number] 06:28:47 Test Item Value Reference Range Interpretation Comments VITAMIN B12 (BEAKER) (test code = 1626 pg/mL 213-816 H 774) Inspection And Testing Supervisor ID - ADMINBASIC METABOLIC [id number] 06:22:27 Test Item Value Reference Range Interpretation [...] S NOT APPLICABLE FOR DIALYSIS PATIEN TS. Inspection And Testing Supervisor ID - [id number] 06:08:16 Test Item Value Reference Range Interpretation Comments MAGNESIUM (BEAKER) (test code = 2.3 mg/dL 1.6-2.6 627) Inspection And Testing Supervisor ID - [id number] 06:08:16 Test Item Value Reference Range Interpretation Comments PHOSPHORUS (BEAKER) (test code = 5.6 mg/dL 2.3-4.7 H 604) Inspection And Testing Supervisor ID - DBPROTHROMBIN TIME/[id number] 05:55:08 Test Item Value Reference Range Interpretation Comments PROTIME (BEAKER) 14.2 seconds 11.9-14.2 (test code = 759) INR (BEAKER) (test 1.12 See_Comment [Automat ed message] code = 370) The system [employer] generated this result transmitted ref erence range: [...] = 2801) RAD, CHEST, 1 VIEW, NON [id number] 02:35:00Reason for exam:->shortness of breathShould this be performed at the bedside?->Yes [facility] 1955 Sex: FFINAL REPORT RAD, CHEST, 1 VIEW, NON DEPT INDICATION: shortness of breath COMPARISON: None FINDINGS: Portable frontal view of the chest. 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 Lungs and pleura: No airspace consolidation oreffusion. No pneumothorax. Heart and mediastinum: Unremarkable cardiomediastinal contours. Additional findings: Status post median sternotomy. Signed: Andrew Caryeport Verified Date/Time: 06/08/2021 02:35:39 POCT-GLUCOSE [id number] 23:26:33 Test Item Value Reference Range Interpretation Comments POC-GLUCOSE METER 279 mg/dL 70-110 H : TESTED A T [facility] 6720 (BEAKER) (test code = YUDY Vaca [facility], 1538) [address]: Inspection And Testing Supervisor/Techni kelle ID = [id number] for Tavia Bruce COMPREHENSIVE METABOLIC [id number] 22:28:11 Test Item Value Reference Range Interpretation [...] S NOT APPLICABLE FOR DIALYSIS PATIEN TS. Inspection And Testing Supervisor ID - DBPort O'Connorcomycin [facility], [id number] 22:19:31 Test Item Value Reference Range Interpretation Comments Vancomycin Rm (test 16.1 ug/mL code = 67447-5) BRANDI (test code = Reference Range: No BRANDI) NormalsOperator ID - DB [facility], [id number] 22:19:31 Test Item Value Reference Range Interpretation Comments Vancomycin Rm (test 16.1 ug/mL code = 27878-5) BRANDI (test code = Reference Range: No BRANDI) NormalsOperator ID - DB [facility], [id number] 22:19:31 Test Item Value Reference Range Interpretation Comments Vancomycin Rm (test 16.1 ug/mL code = 82666-9) BRANDI (test code = Reference Range: No BRANDI) NormalsOperator ID - DB [facility], scptkw2158-69-88 22:19:31 Test Item Value Reference Range Interpretation Comments Vancomycin Rm (test 16.1 ug/mL code = 38492-6) BRANDI (test code = Reference Range: No BRANDI) NormalsOperator ID - DB [facility], [id number] 22:19:31 Test Item Value Reference Range Interpretation Comments Vancomycin Rm (test 16.1 ug/mL code = 13558-6) BRANDI (test code = Reference Range: No BRANDI) NormalsOperator ID - DB [facility], [id number] 22:19:31 Test Item Value Reference Range Interpretation Comments Vancomycin Rm (test 16.1 ug/mL code = 86421-9) BRANDI (test code = Reference Range: No BRANDI) NormalsOperator ID - DB [facility], [id number] 22:19:31 Test Item Value Reference Range Interpretation Comments Vancomycin Rm (test 16.1 ug/mL code = 75148-3) BRANDI (test code = Reference Range: No BRANDI) NormalsOperator ID - DB [facility], [id number] 22:19:31 Test Item Value Reference Range Interpretation Comments Vancomycin Rm (test 16.1 ug/mL code = 65278-4) BRANDI (test code = Reference Range: No BRANDI) NormalsOperator ID - DB [facility], [id number] 22:19:31 Test Item Value Reference Range Interpretation Comments Vancomycin Rm (test 16.1 ug/mL code = 52668-1) BRANDI (test code = Reference Range: No BRANDI) NormalsOperator ID - DB [facility], [id number] 22:19:31 Test Item Value Reference Range Interpretation Comments Vancomycin Rm (test 16.1 ug/mL code = 87253-4) BRANDI (test code = Reference Range: No BRANDI) NormalsOperator ID - DB [facility], [id number] 22:19:31 Test Item Value Reference Range Interpretation Comments Vancomycin Rm (test 16.1 ug/mL code = 92323-6) BRANDI (test code = Reference Range: No BRANDI) NormalsOperator ID - DB [facility], [id number] 22:19:31 Test Item Value Reference Range Interpretation Comments Vancomycin Rm (test 16.1 ug/mL code = 17856-8) BRANDI (test code = Reference Range: No BRANDI) NormalsOperator ID - DB [facility], [id number] 22:19:31 Test Item Value Reference Range Interpretation Comments VANCOMYCIN RANDOM (BEAKER) (test 16.1 ug/mL code = 523) Reference Range: No NormalsOperator ID - DBCBC W/PLT COUNT & AUTO [id number] 22:05:27 Test Item Value Reference Range Interpretation [...] Interpretation Comments POCT GLU (test code = 5516284714) 129 mg/dL 70-110 H Lab Interpretation (test code = Abnormal 50419-2) [facility] GLUCOSE (AUTOMATED)2021-05-22 17:41:02 Test Item Value Reference Range Interpretation Comments POCT GLU (test code = 8990820472) 120 mg/dL 70-110 H Lab Interpretation (test code = Abnormal 62266-1) [facility] GLUCOSE (AUTOMATED)2021-05-22 13:46:20 Test Item Value Reference Range Interpretation Comments POCT GLU (test code = 6868012726) 174 mg/dL 70-110 H Lab Interpretation (test code = Abnormal 11879-7) [facility] METABOLIC PANEL (NA, K, CL, CO2, GLUCOSE, BUN, CREATININE, CA)2021-05-22 10:34:14 Test Item Value Reference Range Interpretation Comments NA (test code = 128 mmol/L 135-145 L 5528897460) K (test code = 5.2 mmol/L 3.5-5.0 H 6321289618) CL (test code = 95 mmol/L 98-108 L 5900278472) CO2 TOTAL (test code = 24 mmol/L 23-31 2856343361) AGAP (test code = 2-16 8100471854) BUN (test code = 43 mg/dL 7-23 H 2448867764) GLUCOSE (test code = 182 mg/dL 70-110 H 1131173818) CREATININE (test code = 5.93 mg/dL 0.50-1.04 H 8923906154) CALCIUM (test code = 8.0 mg/dL 8.6-10.6 L 7233322365) eGFR (test code = mL/min/1.73m2 2243154589) BRANDI (test code = BRANDI) Association of [...] tests). Lab Interpretation Abnormal (test code = 35464-3) [facility] WITH [id number] 10:25:51 Test Item Value Reference Range Interpretation Comments WBC (test code = See_Comment [Automated 8186-2) message] The sy stem which generated this result transmitted reference range : 4.30 - 11.10 10*3/?L. The reference range was not used to interpret this result as normal/abnormal . RBC (test code = See_Comment L [Automated 879-1) message] The sy stem which generated this [...] (test code = 50.7 fL 39.0-49.9 H 92894-6) RDW-CV (test code = 14.6 % 12.0-15.5 788-0) PLT (test code = See_Comment L [Automated 777-3) message] The sy stem which generated this result transmitted reference range : 166 - 358 10*3/ ?L. The reference r alba was not used to interpret this result as normal/abnormal . MPV (test code = 11.2 fL 9.5-12.9 39848-7) NRBC/100 WBC (test See_Comment [Automat ed code = 3052027246) message] The system which generated this result transmitted reference range : 0.0 - 10.0 /100 WBCs. The refer ence range was not u sed to interpret th is result as normal/abnormal . NRBC x10^3 (test code <0.01 See_Comment [Auto mated = 3105263578) message] The s ystem which generated this result transmitted reference range : 10*3/?L. The reference range was not used to interpret this result as normal/abnormal . GRAN MAT (NEUT) % 75.4 % (test code = 770-8) IMM GRAN % (test code 0.70 % = 0516708263) LYMPH % (test code = 12.5 % 736-9) MONO % (test code = 10.3 % 5905-5) EOS % (test code = 0.8 % 713-8) BASO % (test code = 0.3 % 706-2) GRAN MAT x10^3(ANC) 4.54 10*3/uL 1.88-7.09 (test code = 9666404365) IMM GRAN x10^3 (test 0.04 10*3/uL 0.00-0.06 code = 2820645808) LYMPH x10^3 (test code 0.75 10*3/uL 1.32-3.29 L = 731-0) MONO x10^3 (test code 0.62 10*3/uL 0.33-0.92 = 742-7) EOS x10^3 (test code = 0.05 10*3/uL 0.03-0.39 711-2) BASO x10^3 (test code <0.03 0.01-0.07 = 704-7) Lab Interpretation Abnormal (test code = 61855-8) [id number] 05:24:06 Test Item Value Reference Range Interpretation Comments NT-proBNP (test code 872669 pg/mL See_Comment H [Autom ated = 5650686658) message] The system which generated this result transmitted reference range : <=125. The reference range was not used to interpret this result as normal/abnormal . BRANDI (test code = BRANDI) Biotin has been reported to cause a negative bias, interpret results relative to patient's use of biotin. Lab Interpretation Abnormal (test code = 71860-6) [facility], [id number] 04:46:54 Test Item Value Reference Range Interpretation Comments GLUCOSE (test code = 1980731633) 107 mg/dL 70-110 Lab Interpretation (test code = Normal 24392-2) [facility] Total [id number] 04:46:34 Test Item Value Reference Range Interpretation Comments T PROTEIN (test code = 8853626706) 6.1 g/dL 6.3-8.2 L Lab Interpretation (test code = Abnormal 74205-4) [facility]LACT[facility] [id number] 04:46:18 Test Item Value Reference Range Interpretation Comments LDH (test code = 9455348313) 311 U/L 300-600 Lab Interpretation (test code = Normal 01557-4) [facility] [id number] 00:24:29 Test Item Value Reference Interpretation Comments Range TROPONIN I (test 0.084 ng/mL See_Comment H [Automated code = 1244964689) message] The system which generated this result [...] biotin. Lab Interpretation Abnormal (test code = 78460-6) [facility] HospitalCyto Pleural [id number] 23:21:29 Test Item Value Reference Range Interpretation Comments Case Report (test code = Non-Gynecologic 5547100859) Cytology ?Case: [id number] ?Authorizing Provider: ?Candido Robison, ?Collected: ? 05/20/2021 1604 ?Ordering Location: ? ? [facility] Medicine Surgery Unit ?Received: ?05/20/2021 1631 ?Pathologist: ? Mariana, ? MD Duc ?Specimen: ? ?PLEURAL, RIGHT ? Final Diagnosis (test c7uktJZgXEQyi1dpZIIec code = 7344368335) GFuZzEwMzNcZnRuYmpcdW MxIHtccnRmMVxlcGljOTY qINdpcrExFNAwoNKtH5Vv oafcMQpzOH6lEL0lxMvqn QCfyXKtWLBkJiVks2cas4 61dKRbn6ncBALOvcphjCe 5uRymP88fh7P8BajvT75h sPZdXTQ4PLKnHGDcaPAcX BTwINY5CHWqmCWcJ0vnPN RoKC9aobcfRXdgYYutEPE imXP7LVQcuPJqJ9YuLZOs RCdaEQFyqlv0TuUoBr8qg GVyeTcyMFxwYXJkXHBsYW luXGJcZnMyMFxwYXIgQS4 gIFBMRVVSQSwgUklHSFQ7 AILHH6DYI5AVMMHTQVJfS diKWKQ1CFViwsYdFGCbLB 7dAqZFMSHMXqTxTj4WSH7 BTElHTkFOVCBDRUxMUyBc LqMfAVFIUQDXM85ALY3FU VxwYXJccGFyIFBhdWwgWW 65gxpjOG3XUDUtpTFceAT yuSkear72PUK8OZKnJcN6 LzIwMjJccHJvdGVjdDAgX HBsYWluXGZzMjAgICAyOj I9NASPAVLbbzquJGZ7o6o ydGYxXHNzdGVjZjIyMDAw VSFte9liMGIgaJOzMrJxV zNcZnRuYmpcdWMxXGRlZm Yhu3bvf788lRXwu8pnLBN sZmO0vLOiISVotFgvvmc7 kOjmNpZmTCShy9jfnzDaN mNoYXJzZXQwIEFyaWFsO3 17RJPoIXjbt7coe0EwDJX xqWBjy6J4LCOMLUrxScGg E148c1quc5qrliPruDD5Y RCsTCA6LAabnlZvlzR8WC sccAXcCfC1PJslsvYbSEn bbxHersWeFiz1WQVgZ138 DET9rNjoi0haKCA2TTUvU MMuLsriCb5icSEjO368FU TiGTQWUIZzsPw2WGXzzzD xjeLdlUYHm356M839b6fc BSFuidBiiCxWvkwvf1khU 319XHBhcGVydzEyMjQwXH FgiMKifKF4VFXmFD1ozfy qDSftKRerCWYgwoC1UISf vFPmW7WnWCArCQ9gbhylP AB3UZnsYRAwRIT1FnHaLD Pns7Hkfev0AzDhyp8krw7 6OPR9f2DqvAlaFTR4MYH2 GiKvDq6jyOCvCOLvYW2zC nFomHXgNWTfdd73zBjkIZ uyymCakK7qJjRmLXHpjAZ mBXBfDQ4dlNIaJQIfdZ2r cmxjXHBnYnJkcmhlYWRcc AmjcpBhNk7vsBniITK8XH adO1pynM8oKwH2TSybV7b feB2qSRn6EPrxmRW0NBRh gX0bIH2pmrfcp3tjIBuuF NqmQMDjiiH0zyH2MSBsgC VeO6TjfM4eQAZwBP4sxrv io6tuGAC1ZNxtLPPkNKS0 FtSgLBMvk9Wtkma9BtLcb 1BjgSBhYJeqD64tj954ZR ZonzSfE7zcvLOrbtoddSM whsaaAVmaiyG1ZUFjUEJx YWluXGYxXGZzMjBcbGFuZ zEwMzNcaGljaFxmMVxkYm MnFDUpUKljQ0vuFbOkI4H yXGZzMjBccGFyIEkgaGF2 TMSvBOOai97yhQi4TEXfi rnmj5PsFLLilEHnvZArfR 0dseNep6qoCELjKYCcOSR eA1YwFSN4nUIaRPFqlMYi nTH4BX4bbvNtZK1dHEKxO nkgcmVzaWRlbnRzLCBmZW gan3fvGN9eWGHmvAhwcN2 ruDR2HKWsd6gulUUntPDz s7oaq4KwmfCcQFsaOEPxK BwtQMFiTZDjMW9vOKMjjB XgppUdv0M6BfrthAUnogi uMzoshxK1TBeattsaBKRe VKdoM9jmTzCoHVWygNnmX ktda9FyARXhADYpAgiwsQ FyfX0= Final Diagnosis Comment x1vtxWIpHNTimUB2GpVqW (test code = 9995725197) OLca9wdj1CdaAEzbTEmBQ pxoKQhuxFjqq07dEF4kT7 1IE9kXCJzDiB5UTCxbhL5 Azl9UKLyERTgkDHcY685j 7lfc4xpdsVjqXG7kTwdZQ KdxrwbBhN9IEwlWKUpiyl bTRt3BYsaOHLvdVP3PTIr mWPuZ3LuRKRsJK0oqlw1L XD6XMasDJGsGjR0ZQLbqR QiGTTwiFqjTIxif884HSU 3MbVkISUhnrQteConjY6q ZnMyMCBTbWVhcnMgYXJlI GIltBXjK7HeuGYwLJQjMX 3fQXUlw8bjqfBzMYKyLY9 bL98jfLYff1RoMNdcYMrp Z4UflAJjSO2nPYRzr77tN MGcEN0kxhUzRbSJsuMsHY qzS78aquRrW5UxlBYjqIQ galItPsvoLP2wFWPceh0= Clinical Information Clinical Hx: ESRD (test code = 2891822150) Gross Description (test w1wneAUlRSKqhKL0HzMkZ code = 2849087329) TIml1ikz4AygUKbdSOlRO moxEUbhiOxju36yPQ2mJ8 2VJ5pMMPeKjF7NEUhfpL3 Qxs6WMIcRKAznJHmO727q 6xsx4fxcfCpwXT6rApnXV KswamnZmH7TOovOQGbati kINt0JTnqHIXfnMV4XFAh wXItH9MvPIPsAZ4fxmx9J ND9EZytHEGaXiU8DOAaeT FlRRXgbRziHHqob594WJB 1OaMhNYEkolT9FBccNGXm N4CeW5XnLWelJAH1DEWtD CBcXHQgMSBcXGZsIFxcbm U4s0ztCOWpsRCtGFZ5CDi caWQgNTEwMDIgXFxkYiBP CpLqQjQuZQC4EWM6RAFlO Wl6GHlwZ0XOWLLvHUH9JJ BaICr9KmW3EZk3EAALBh5 dBON9CQEeBVa4ORS3DZJ3 NCBcXHQgMiBcXGZsIFxcZ iBBcmlhbCBcXGZzIDEwIF umghW8VFNtFOvqKMRxGjG ccGFyXGZzMjJccGFyIEEx LiAgUExFVVJBLCBSSUdIV XezWUmOOdZXIM3BLMHUIa BGTFVJRFxwYXIgUmVjZWl 2UCLbCaWkf8mbsPQbIMHh QusvTU3hYTanuDxtxmOhq HVpZCBccGFyIFByZXBhcm ZyUZKcp0xbUWVzDXpoGAO hcGFuaWNvbGFvdSBjeXRv s8YovzqoFU7jLYXgPq7jO N5ji0DaeDRytSXce8Jknt QqssMcCWKaoFlwmurzy9m mgOstl8DoqFFiCO29TLFl kUTxSOV5CI3uzXuoLTB2 Disclaimer (test code = y3niyQXzSGBbr1xhCUPdq 8645306408) GFuZzEwMzNcZnRuYmpcdW PiALjzdrMgERimm6EvN1F yMjAwMFxhbnNpXGRlZmxh tziuGKZcKRV1yeXwTTVoR SgzKOWjRFrqOc0psZPrnG atPyCgZSIjo7pldgSBINk tYwZkI973LCTfIClwo9xy t1IlVDOtqBLxh1A5XGYBh jdtqVi1jNuiC03jw3Q9Qv zvX9guUYCrJBGaD4VbMU0 eUSEoXdy7POS7NUI8WYIr DPZiM7PiOF5cIRNlwQBgY Lo5e1rpiGjcFIKtXHX2p4 pkCEebqlXuNH6hxv3aySr 9g8ilskZtTBOnCBYrqRZC JIAdX2MtoXlqXg9xyCe5q AacUrpgJFW6Nuh3LG0ggv 76kfa9fEogWUJulecmGbD 2EOwiACEscnkoNCz6BWdg IBXusZD0YUSbpUAlH1NuP KLlDM7jbyr8DMM5HKsrZZ QrQxO0KKNxyZIkIQOexXw lVVzcf324GCK4LqJpUG6e A6Xyt6J9hB4wlZKfTAAtk PHwDhWpLERhpr6joTKfZK bxi9GpLCS6hgW2pZJwoUB lVVQyRU36Vhxpc2XcZsvs r6JhE14dxQD7QOvul1ikE Q0tZpG6qfIrUXcuo1aomC 8tBdD7POblCN4uVN5hPZQ paZ1kwxcwMHUjNmUrtkul HHFdmGwltgIiSx0cmOyaK UW7MOjzK4eyvD0gLjH1BF ftM4prrH3eWFr8NKfgxPD 4FSVztU5iVX1nmansd3dd VCxaNLekDIVtejH1kuH6O AHfyRSxY9TifK8uMKNvOA 0qvngvm1onIBQ7NXevGFK tNON4TfQuMPUih9Oipbd0 MyGfh5IlkUBmJFbeT14xk 731UPOlnvClZ5ngkVZxso szzWJncthxULxvdtJ6AQT kliJbd1ZlFQZqRNJ5LRsc KJhknXEbAJGikZeoi6kwC 3RscGFyXHBsYWluXGYxXG ZzMjBcbGFuZzEwMzNcaGl jaFxmMVxkYmNoXGYxXGxv K3vvYmZnB4ZePYVvHsLvl PObF1tfRNvovaMoHZSfed VajBR4BMqqB7z8IHEseyM niNx8xtFvPjOeAAVsJPQ4 OZcxbDKoTALiy9Cipmfig MLaGh5hiTEhFZLipD5nGD ApUHHjRRkqNE8yyJw8LPZ WiLSnpMYpGxFTJDDlTT61 vyKtWUUXvsdwr7Y9BZbvM EUbd0IntHZrG8exv8VmEP Brz15dHT3mg1V9f8byQFT 4CI4ru6XkXPOrxRQarZJl CGNyz6Sfxapty6VnGZDqo eVmz1ZoRHNciyGjrYAjSK ZuenWcyi6zdmFyRMYpNLG sG4WakmusmBofguJbOKBj ct8xqrNiJJT0ALAKYHTsC JTul0AlsD2nkLTRPRQ3jW Iquu2gggNKfPAaDWOgcu6 9KPAjPC3zA9wbBVBaXBKp elNhsTBzn0MxDOEcsIK0w QUyYK1UXzOXe94dSIVaVG KEjdKaQZEneCkjpKX6unI 5hO3lDVrNRXTjRtb+IFRo OAKAXLFyTP1syhUvr2Xua mXhqBsrTOCalWGgt6HxsT Lzl3SutJacl2SjaGOroIP uPA7bDOVhmojqELUrOTLW EvPKZLZisnT7o5LxFUNxQ FFvVBU8pEowrmy6NGUjkV 8nTDHvC0bggsptXXfjIAE qu0JhvU4kmTNBtYMfm8Xx sXXnwFHBlLAdXO8ymsUnJ CoZJAaKURE3thRoSZXgi8 KfEGdlO6fjY47oiEkpqSy 7qNA5MEN8tL5lKsv+IFxw YXJccGFyIEFwcHJvcHJpY XTopNzordWkR4LedxTvhH 9tuVItvuFnFP9iYD3oW9G 5zFQrDSDrjzXnl9myFPmd dmUgYmVlbiByZXZpZXdlZ ZIsh3WyLQofOWO4QAtkfo BpbmNsdWRpbmcgSCZFLCB ShKBfbLRyROW5RGrzgxRw osPpGZ2auA6npUmdxN8dr XZjzLD7plndNEPuENSnkU luWJTfDK1daMJnNHYyebM EhZwjyMAxkH0jG9IaHZZt NTLsuu7hMUPeyO9uSKvda 2VydmljZXMgYXJlIHBlcm Rnmk0kTHZjmTBVFZ9OCCt csKYzx5GqrkHdU1dFPOZ5 NUQwNjYwMjgxKSBleGNlc RPlXKAqgt92LPTnwO3lmC mnSUSzfI5luI4dpAxqjO8 lXtFhYrVsEUbcSR8zJQYp Q7rcfUJyUPDaNLWmN9byS kQbyE0vePvkJVsxDnSeHd IaGIjsDSF2rO== Embedded Images (test code = 3791989167) [facility] GLUCOSE (AUTOMATED)2021-05-21 23:17:01 Test Item Value Reference Range Interpretation Comments POCT GLU (test code = 9121620386) 109 mg/dL 70-110 Lab Interpretation (test code = Normal 05503-4) [facility] [id number] 21:50:44 UNREMARKABLE LEUKOCYTES WITH ABSOLUTE LYMPHOPENIA. MODERATE NORMOCYTIC NORMOCHROMIC ANEMIA. MILD THROMBOCYTOPENIA.[facility] VITAMIN B12, [id number] 18:38:08 Test Item Value Reference Range Interpretation Comments VIT B12 (test code = >1000 240-930 H 6702980269) BRANDI (test code = BRANDI) Biotin has been reported to cause a positive bias, interpret results relative to patient's use of biotin. Lab Interpretation (test Abnormal code = 42192-8) [facility], [id number] 17:51:01 Test Item Value Reference Range Interpretation Comments VIT D 25OH (test code = 24 ng/mL 25-80 L 81446-2) BRANDI (test code = BRANDI) Deficiency: <20 ng/mLInsufficiency: 20-24 ng/mLOptimal: 25-80 ng/mL Lab Interpretation (test Abnormal code = 22214-0) [facility] 17:42:20 Test Item Value Reference Range Interpretation Comments FOLATE SER (test code = 6.1 ng/mL 3.0-20.0 Biot in has been 1177560006) reported to cau se a positive bias, interpret resul ts relative to patient's use o f biotin. Lab Interpretation (test Normal code = 77570-9) [facility]21-[facility]-21 17:17:00 Test Item Value Reference Range Interpretation Comments POCT GLU (test code = 1200807427) 175 mg/dL 70-110 H Lab Interpretation (test code = Abnormal 15420-0) [facility] [id number] 14:52:32 Test Item Value Reference Interpretation Comments Range TROPONIN I (test 0.109 ng/mL See_Comment H [Automated code = 4372325970) message] The system which generated this result [...] biotin. Lab Interpretation Abnormal (test code = 15321-1) [facility] HospitalIRON [id number] 14:49:31 Test Item Value Reference Range Interpretation Comments IRON (test code = 2149407932) 30 ug/dL 50-160 L TIBC (test code = 3286421143) 185 ug/dL 250-410 L % FE SAT (test code = 2311020788) 16 % 20-50 L Lab Interpretation (test code = Abnormal 43389-9) [facility]21-[facility]-21 14:06:00 Test Item Value Reference Range Interpretation Comments POCT GLU (test code = 1237912104) 191 mg/dL 70-110 H Lab Interpretation (test code = Abnormal 29310-5) [facility]FERRITIN [id number] 14:05:25 Test Item Value Reference Range Interpretation Comments FERRITIN (test code = 715.0 ng/mL 11.0-264.0 H 5169079096) BRANDI (test code = BRANDI) Biotin has been reported to cause a negative bias, interpret results relative to patient's use of biotin. Lab Interpretation (test Abnormal code = 57184-8) [facility] [id number] 13:56:37 Test Item Value Reference Range Interpretation Comments NT-proBNP (test code 815938 pg/mL See_Comment H [Autom ated = 9803872764) message] The system which generated this result transmitted reference range : <=125. The reference range was not used to interpret this result as normal/abnormal . BRANDI (test code = BRANDI) Biotin has been reported to cause a negative bias, interpret results relative to patient's use of biotin. Lab Interpretation Abnormal (test code = 68345-3) [facility] [id number] 13:43:04 Test Item Value Reference Interpretation Comments Range TROPONIN I (test 0.100 ng/mL See_Comment H [Automated code = 3250009177) message] The system which generated this result [...] biotin. Lab Interpretation Abnormal (test code = 14647-3) [facility]HEPAT[facility] (69766[facility] (ALB,T.PRO,BILI T,BU/BC,ALT,AST,ALK PHOS)2021-05-21 13:30:03 Test Item Value Reference Range Interpretation Comments TOTAL BILI (test code = 1124776204) 0.7 mg/dL 0.1-1.1 BILI UNCON (test code = 7065107058) 0.0 mg/dL 0.1-1.1 L BILI CONJ (test code = 3783746183) 0.0 mg/dL 0.0-0.3 T PROTEIN (test code = 5178027012) 7.2 g/dL 6.3-8.2 ALBUMIN (test code = 0319605130) 3.5 g/dL 3.5-5.0 ALK PHOS (test code = 1224242418) 156 U/L 34-122 H ALTv (test code = 1742-6) 12 U/L 5-35 AST(SGOT) (test code = 8383848907) 28 U/L 13-40 Lab Interpretation (test code = Abnormal 61425-9) [facility] Hospital[facility] WITH [id number] 10:18:09 Test Item Value Reference Range Interpretation [...] (test code = 52.3 fL 39.0-49.9 H 20033-4) RDW-CV (test code = 14.9 % 12.0-15.5 788-0) PLT (test code = See_Comment L [Automated 777-3) message] The sy stem which generated this result transmitted reference range : 166 - 358 10*3/ ?L. The reference r alba was not used to interpret this result as normal/abnormal . MPV (test code = 11.0 fL 9.5-12.9 67011-5) NRBC/100 WBC (test See_Comment [Automat ed code = 1176783922) message] The system which generated this result transmitted reference range : 0.0 - 10.0 /100 WBCs. The refer ence range was not u sed to interpret th is result as normal/abnormal . NRBC x10^3 (test code <0.01 See_Comment [Auto mated = 6261929201) message] The s ystem which generated this result transmitted reference range : 10*3/?L. The reference range was not used to interpret this result as normal/abnormal . GRAN MAT (NEUT) % 74.4 % (test code = 770-8) IMM GRAN % (test code 0.30 % = 1368164052) LYMPH % (test code = 12.9 % 736-9) MONO % (test code = 11.2 % 5905-5) EOS % (test code = 0.7 % 713-8) BASO % (test code = 0.5 % 706-2) GRAN MAT x10^3(ANC) 4.40 10*3/uL 1.88-7.09 (test code = 6395143902) IMM GRAN x10^3 (test <0.03 0.00-0.06 code = 0160129876) LYMPH x10^3 (test code 0.76 10*3/uL 1.32-3.29 L = 731-0) MONO x10^3 (test code 0.66 10*3/uL 0.33-0.92 = 742-7) EOS x10^3 (test code = 0.04 10*3/uL 0.03-0.39 711-2) BASO x10^3 (test code 0.03 10*3/uL 0.01-0.07 = 704-7) Lab Interpretation Abnormal (test code = 76804-5) [facility] METABOLIC PANEL (NA, K, CL, CO2, GLUCOSE, BUN, CREATININE, CA)2021-05-21 10:17:29 Test Item Value Reference Range Interpretation Comments NA (test code = 132 mmol/L 135-145 L 1320982034) K (test code = 4.6 mmol/L 3.5-5.0 7611560887) CL (test code = 99 mmol/L 98-108 8705866051) CO2 TOTAL (test code = 27 mmol/L 23-31 9597692665) AGAP (test code = 2-16 0883981853) BUN (test code = 30 mg/dL 7-23 H 4428881242) GLUCOSE (test code = 129 mg/dL 70-110 H 9432971562) CREATININE (test code = 4.51 mg/dL 0.50-1.04 H 9980148474) CALCIUM (test code = 8.1 mg/dL 8.6-10.6 L 4287310549) eGFR (test code = mL/min/1.73m2 0405895026) BRANDI (test code = BRANDI) Association of [...] tests). Lab Interpretation Abnormal (test code = 82394-4) [facility] GLUCOSE (AUTOMATED)2021-05-21 02:24:31 Test Item Value Reference Range Interpretation Comments POCT GLU (test code = 6104165731) 123 mg/dL 70-110 H Lab Interpretation (test code = Abnormal 03992-1) [facility] GLUCOSE (AUTOMATED)2021-05-20 22:40:15 Test Item Value Reference Range Interpretation Comments POCT GLU (test code = 1533101039) 193 mg/dL 70-110 H Lab Interpretation (test code = Abnormal 44006-8) [facility] GLUCOSE (AUTOMATED)2021-05-20 17:24:39 Test Item Value Reference Range Interpretation Comments POCT GLU (test code = 1381213777) 129 mg/dL 70-110 H Lab Interpretation (test code = Abnormal 01043-5) [id number] 16:20:09 Test Item Value Reference Range Interpretation Comments NT-proBNP (test code 343611 pg/mL See_Comment H [Autom ated = 5620912056) message] The system which generated this result transmitted reference range : <=125. The reference range was not used to interpret this result as normal/abnormal . BRANDI (test code = BRANDI) Biotin has been reported to cause a negative bias, interpret results relative to patient's use of biotin. Lab Interpretation Abnormal (test code = 09365-0) [facility] 13:50:50 Test Item Value Reference Range Interpretation Comments POCT GLU (test code = 5454616133) 142 mg/dL 70-110 H Lab Interpretation (test code = Abnormal 32592-6) [id number] 11:29:26 Test Item Value Reference Range Interpretation Comments LDH (test code = 6107010954) 424 U/L 300-600 Slight hemolysis Lab Interpretation (test code Normal = 76149-0) [facility] (NA, K, CL, CO2, GLUCOSE, BUN, CREATININE, CA)2021-05-20 11:28:05 Test Item Value Reference Range Interpretation Comments NA (test code = 132 mmol/L 135-145 L 2700441691) K (test code = 4.6 mmol/L 3.5-5.0 2585060305) CL (test code = 97 mmol/L 98-108 L 4230464202) CO2 TOTAL (test code = 26 mmol/L 23-31 5307951724) AGAP (test code = 2-16 8357896302) BUN (test code = 44 mg/dL 7-23 H 7548326271) GLUCOSE (test code = 161 mg/dL 70-110 H 6395574401) CREATININE (test code = 6.29 mg/dL 0.50-1.04 H 2448409655) CALCIUM (test code = 8.0 mg/dL 8.6-10.6 L 1073706679) eGFR (test code = mL/min/1.73m2 6816898805) BRANDI (test code = BRANDI) Association of [...] tests). Lab Interpretation Abnormal (test code = 40465-6) [id number] 11:17:25 Test Item Value Reference Range Interpretation Comments PROTIME PATIENT (test See_Comment [Auto mated message] code = 5964-2) The system [employer] generated this result transmitted ref erence range: 12.0 - 1 4.7 Seconds. The re ference range was not u sed to interpret this result as normal/abnor mal. INR (test code = 6301-6) Nor mal INR <1.1; Warfarin Therap eutic range 2.0 to 3. 0 or 2.5 to 3.5, dep ending upon the indica tions. Lab Interpretation (test Normal code = 60651-8) [facility] GLUCOSE (AUTOMATED)2021-05-20 01:38:05 Test Item Value Reference Range Interpretation Comments POCT GLU (test code = 7719039928) 181 mg/dL 70-110 H Lab Interpretation (test code = Abnormal 36572-2) [facility] GLUCOSE (AUTOMATED)2021-05-19 23:12:33 Test Item Value Reference Range Interpretation Comments POCT GLU (test code = 1016570202) 129 mg/dL 70-110 H Lab Interpretation (test code = Abnormal 82280-1) [facility] 17:43:05 Test Item Value Reference Range Interpretation Comments POCT GLU (test code = 1926593897) 195 mg/dL 70-110 H Lab Interpretation (test code = Abnormal 41351-0) [id number] 16:56:37 Test Item Value Reference Range Interpretation Comments NT-proBNP (test code 936402 pg/mL See_Comment H [Autom ated = 0526277971) message] The system which generated this result transmitted reference range : <=125. The reference range was not used to interpret this result as normal/abnormal . BRANDI (test code = BRANDI) Biotin has been reported to cause a negative bias, interpret results relative to patient's use of biotin. Lab Interpretation Abnormal (test code = 91627-7) [facility] METABOLIC PANEL (NA, K, CL, CO2, GLUCOSE, BUN, CREATININE, CA)2021-05-19 15:16:19 Test Item Value Reference Range Interpretation Comments NA (test code = 132 mmol/L 135-145 L 0106619224) K (test code = 4.7 mmol/L 3.5-5.0 1418591767) CL (test code = 98 mmol/L 98-108 4090889961) CO2 TOTAL (test code = 24 mmol/L 23-31 5207423664) AGAP (test code = 2-16 8691036866) BUN (test code = 30 mg/dL 7-23 H 1925074591) GLUCOSE (test code = 101 mg/dL 70-110 2207352862) CREATININE (test code = 4.70 mg/dL 0.50-1.04 H 0103260346) CALCIUM (test code = 8.3 mg/dL 8.6-10.6 L 8800107080) eGFR (test code = mL/min/1.73m2 9719480244) BRANDI (test code = BRANDI) Association of [...] tests). Lab Interpretation Abnormal (test code = 65640-2) [facility] GLUCOSE (AUTOMATED)2021-05-19 14:16:27 Test Item Value Reference Range Interpretation Comments POCT GLU (test code = 8896987793) 112 mg/dL 70-110 H Lab Interpretation (test code = Abnormal 32816-5) [facility] WITH [id number] 13:09:08 Test Item Value Reference Range Interpretation Comments WBC (test code = See_Comment [Automated 1190-2) message] The sy stem which generated this result transmitted reference range : 4.30 - 11.10 10*3/?L. The reference range was not used to interpret this result as normal/abnormal . RBC (test code = See_Comment L [Automated 289-8) message] The sy stem which generated this [...] (test code = 51.2 fL 39.0-49.9 H 15101-5) RDW-CV (test code = 14.6 % 12.0-15.5 788-0) PLT (test code = See_Comment L [Automated 777-3) message] The sy stem which generated this result transmitted reference range : 166 - 358 10*3/ ?L. The reference r alba was not used to interpret this result as normal/abnormal . MPV (test code = 11.0 fL 9.5-12.9 84465-2) NRBC/100 WBC (test See_Comment [Automat ed code = 5273533002) message] The system which generated this result transmitted reference range : 0.0 - 10.0 /100 WBCs. The refer ence range was not u sed to interpret th is result as normal/abnormal . NRBC x10^3 (test code <0.01 See_Comment [Auto mated = 8467383043) message] The s ystem which generated this result transmitted reference range : 10*3/?L. The reference range was not used to interpret this result as normal/abnormal . GRAN MAT (NEUT) % 82.8 % (test code = 770-8) IMM GRAN % (test code 0.40 % = 1533489970) LYMPH % (test code = 7.8 % 736-9) MONO % (test code = 7.9 % 5905-5) EOS % (test code = 0.7 % 713-8) BASO % (test code = 0.4 % 706-2) GRAN MAT x10^3(ANC) 5.98 10*3/uL 1.88-7.09 (test code = 4558046593) IMM GRAN x10^3 (test 0.03 10*3/uL 0.00-0.06 code = 5075265787) LYMPH x10^3 (test code 0.56 10*3/uL 1.32-3.29 L = 731-0) MONO x10^3 (test code 0.57 10*3/uL 0.33-0.92 = 742-7) EOS x10^3 (test code = 0.05 10*3/uL 0.03-0.39 711-2) BASO x10^3 (test code 0.03 10*3/uL 0.01-0.07 = 704-7) Lab Interpretation Abnormal (test code = 56358-1) [facility] B Surface Antibody (HBsAb)2021-05-19 09:35:37 Test Item Value Reference Range Interpretation Comments HBsAB (test code = Positive 5023722748) HBsAb mIU/mL Semi-Quantitative (test code = 0664216270) BRANDI (test code = Interpretation: BRANDI) ?Hepatitis B Surface Antibody ? Negative - Patient is considered to be not immune to infection with HBV. ? ? Positive - Anti-HBs detected at greater than or equal to 12 mIU/mL. ?Patient is considered to be immune to infection with HBV. ? [facility] B Surface Antigen (HBsAg)2021-05-19 09:17:53 Test Item Value Reference Range Interpretation Comments HBsAg Semi-Quantitative (test code = Negative Negative 5195-3) [facility] GLUCOSE (AUTOMATED)2021-05-19 03:13:02 Test Item Value Reference Range Interpretation Comments POCT GLU (test code = 4061136741) 110 mg/dL 70-110 Lab Interpretation (test code = Normal 94548-3) [facility] GLUCOSE (AUTOMATED)2021-05-18 23:00:40 Test Item Value Reference Range Interpretation Comments POCT GLU (test code = 6855435787) 177 mg/dL 70-110 H Lab Interpretation (test code = Abnormal 38487-1) [facility] GLUCOSE (AUTOMATED)2021-05-18 17:50:50 Test Item Value Reference Range Interpretation Comments POCT GLU (test code = 7560459214) 179 mg/dL 70-110 H Lab Interpretation (test code = Abnormal 47811-0) [facility] GLUCOSE (AUTOMATED)2021-05-18 17:26:29 Test Item Value Reference Range Interpretation Comments POCT GLU (test code = 0632651678) 171 mg/dL 70-110 H Lab Interpretation (test code = Abnormal 13268-1) [facility] METABOLIC PANEL (NA, K, CL, CO2, GLUCOSE, BUN, CREATININE, CA)2021-05-18 15:43:01 Test Item Value Reference Range Interpretation Comments NA (test code = 128 mmol/L 135-145 L 6974647899) K (test code = 5.5 mmol/L 3.5-5.0 H 8461575697) CL (test code = 94 mmol/L 98-108 L 8339721643) CO2 TOTAL (test code = 24 mmol/L 23-31 3361654051) AGAP (test code = 2-16 6890538058) BUN (test code = 56 mg/dL 7-23 H 8771369165) GLUCOSE (test code = 130 mg/dL 70-110 H 0981236714) CREATININE (test code = 7.52 mg/dL 0.50-1.04 H 7106130299) CALCIUM (test code = 7.8 mg/dL 8.6-10.6 L 3723436524) eGFR (test code = mL/min/1.73m2 2859586413) BRANDI (test code = BRANDI) Association of [...] tests). Lab Interpretation Abnormal (test code = 78023-7) [facility] GLUCOSE (AUTOMATED)2021-05-18 13:33:12 Test Item Value Reference Range Interpretation Comments POCT GLU (test code = 1889448120) 129 mg/dL 70-110 H Lab Interpretation (test code = Abnormal 28693-8) [facility] GLUCOSE (AUTOMATED)2021-05-17 22:57:15 Test Item Value Reference Range Interpretation Comments POCT GLU (test code = 8515265413) 215 mg/dL 70-110 H Lab Interpretation (test code = Abnormal 85772-9) [facility] 18:02:09 Test Item Value Reference Range Interpretation Comments LVOT diameter (test code 2.00 cm = 5940939579) MV Peak E [place] (test code 134.0 cm/s = 6140570620) MV Peak A [place] (test code 54.2 cm/s = 3966703437) E/A ratio (test code = ratio 3303118283) E wave decelartion time 0.22 s (test code = 3487307934) LA size (test code = 5.4 cm 3152662204) MV stenosis pressure 1/2 65.0 ms time (test code = 8563587470) MV dec slope (test code 604.00 cm/s2 = 4040695022) Ao root annulus (test 2.7 cm code = 4607724038) Ao root diam (test code 2.70 cm = 4397347876) Aortic root (test code = 2.7 cm 2688673296) LVIDD (test code = 5.10 cm 7513607616) IVS (test code = 1.06 cm 7376499720) Interventricular Septum 1.06 cm Diastolic Thickness by 2D (test code = 8510880) LVPWD (test code = 1.00 cm 7946649072) PW (test code = 1.00 cm 0.6-1.9 4888818850) LVIDS (test code = 3.70 cm 2180003526) FS (test code = 27 % 6903104741) EF(Teich) (test code = 52.60 % 3770498210) EF - 2D (test code = 52.60 % 85338485) MR max PG (test code = 123.90 mm[Hg] 0686928320) MR max marietta (test code = 556.50 cm/s 8226776402) Mr max m[place] (test code = 556.5 m/s 3696684979) LAV(MOD-sp4) (test code 46.70 mL = 3922404340) LA Volume Index (BP) 29.2 mL/m2 (test code = 8538854783) LA volume (BP) (test 51.8 mL code = 7705882386) LAV(MOD-sp2) (test code 52.40 mL = 7822711836) Aortic valve mean 105.0 cm/s velocity (test code = 5275267303) Ao peak m[place] (test code = 160.0 cm/s 4212120550) Ao VTI (test code = 30.0 cm 3750322081) Ao max PG (test code = 10.20 mm[Hg] 1012818890) AV peak gradient (test mmHg code = 4101892787) AV mean gradient (test mmHg code = 0402232968) LVOT stroke volume (test 63.60 cm3 code = 1113375514) LVOT peak [place] (test code 108.3 cm/s = 9008206636) LVOT mn grad (test code mmHg = 0863344822) AV LVOT peak gradient mmHg (test code = 9374755228) LVOT peak VTI (test code 20.2 cm = 2658798301) AV area by cont VTI 2.1 cm2 (test code = 7890622376) AV area peak m[place] (test 2.1 cm2 code = 8360562215) LV V1 mean (test code = 66.80 cm/s 3392637938) AV valve area (test code 2.12 cm2 = 3342346386) TR Peak [place] (test code = 342.9 cm/s 4540658724) Triscuspid Valve mmHg Regurgitation Peak Gradient (test code = 8692598462) PV REGURGITATION PEAK mmHg GRADIENT (test code = 7638760974) PI dec slope (test code 438.00 cm/s2 = 3086435504) Pulmonic Regurgitant End 105.3 cm/s Max Velocity (test code = 0563764803) Inferior Vena Cava 2.33 cm Diameter (test code = 4129376329) MV Prop V (test code = 37.50 cm/s 9768141375) Radiology Study observation (narrative) (test code = 32955-2) ADD (test code = ADD) Addendum by Brenda Fuentes MD on 05/17/2021 3:16 PM SHRINKER ?Left?Ventricle: Low normal systolic function with a [...] (73.9 kg) 1.81 sq meters 165/73 71 [facility] GLUCOSE (AUTOMATED)2021-05-17 17:54:17 Test Item Value Reference Range Interpretation Comments POCT GLU (test code = 4438158940) 134 mg/dL 70-110 H Lab Interpretation (test code = Abnormal 67456-5) [facility] GLUCOSE (AUTOMATED)2021-05-17 14:18:37 Test Item Value Reference Range Interpretation Comments POCT GLU (test code = 2123516834) 119 mg/dL 70-110 H Lab Interpretation (test code = Abnormal 84174-0) [id number] 11:21:13 Test Item Value Reference Range Interpretation Comments NT-proBNP (test code 570774 pg/mL See_Comment H [Autom ated = 2358977097) message] The system which generated this result transmitted reference range : <=125. The reference range was not used to interpret this result as normal/abnormal . BRANDI (test code = BRANDI) Biotin has been reported to cause a negative bias, interpret results relative to patient's use of biotin. Lab Interpretation Abnormal (test code = 38791-0) [facility] WITHOUT [id number] 11:09:22 Test Item Value Reference Range Interpretation Comments WBC (test code = 6690-2) See_Comment [A utomated message] The system [employer] generated this result transmit levi reference range : 4.30 - 11.10 10*3/?L. The reference range was not used to interpret this result as normal/abnormal . RBC (test code = 789-8) See_Comment L [Au tomated message] The system [employer] generated this result transmit levi reference range [...] See_Comment L [Au tomated message] The system [employer] generated this result transmit levi reference range : 166 - 358 10*3/?L. The reference range was not used to interpret this result as normal/abnormal . MPV (test code = 11.1 fL 9.5-12.9 54119-6) RDW-CV (test code = 14.5 % 12.0-15.5 788-0) RDW-SD (test code = 50.8 fL 39.0-49.9 H 25517-8) NRBC x10^3 (test code = <0.01 See_Comment [Au tomated message] 5501637757) The system [employer] generated this result transmit levi reference range : 10*3/?L. The reference range was not used to interpret this result as normal/abnormal . NRBC/100 WBC (test code See_Comment [Au tomated message] = 2310355066) The system [employer] generated this result transmit levi reference range : 0.0 - 10.0 /100 WBC s. The reference r alba was not used to interpret this result as normal/abnormal . IPF % (test code = 0296139840) Lab Interpretation (test Abnormal code = 55287-4) [facility] 10:56:23 Test Item Value Reference Range Interpretation Comments MAGNESIUM (test code = 9622670616) 2.1 mg/dL 1.7-2.4 Lab Interpretation (test code = Normal 00503-2) [facility] METABOLIC PANEL (NA, K, CL, CO2, GLUCOSE, BUN, CREATININE, CA)2021-05-17 10:56:22 Test Item Value Reference Range Interpretation Comments NA (test code = 130 mmol/L 135-145 L 4068157605) K (test code = 4.6 mmol/L 3.5-5.0 9827639084) CL (test code = 96 mmol/L 98-108 L 6320868252) CO2 TOTAL (test code = 26 mmol/L 23-31 4568425077) AGAP (test code = 2-16 9514460346) BUN (test code = 42 mg/dL 7-23 H 9860591439) GLUCOSE (test code = 148 mg/dL 70-110 H 7380533514) CREATININE (test code = 5.84 mg/dL 0.50-1.04 H 6415161826) CALCIUM (test code = 7.9 mg/dL 8.6-10.6 L 4767514409) eGFR (test code = mL/min/1.73m2 3613078596) BRANDI (test code = BRANDI) Association of [...] tests). Lab Interpretation Abnormal (test code = 91056-0) [facility] 10:56:02 Test Item Value Reference Range Interpretation Comments PHOSPHORUS (test code = 2227490518) 5.8 mg/dL 2.5-5.0 H Lab Interpretation (test code = Abnormal 89002-3) [facility] GLUCOSE (AUTOMATED)2021-05-16 22:43:07 Test Item Value Reference Range Interpretation Comments POCT GLU (test code = 4904292236) 231 mg/dL 70-110 H Lab Interpretation (test code = Abnormal 69910-9) [facility] GLUCOSE (AUTOMATED)2021-05-16 17:43:53 Test Item Value Reference Range Interpretation Comments POCT GLU (test code = 8425811517) 154 mg/dL 70-110 H Lab Interpretation (test code = Abnormal 40639-6) [facility] GLUCOSE (AUTOMATED)2021-05-16 13:42:36 Test Item Value Reference Range Interpretation Comments POCT GLU (test code = 9980556678) 121 mg/dL 70-110 H Lab Interpretation (test code = Abnormal 22900-3) [facility] WITHOUT [id number] 09:48:31 Test Item Value Reference Range Interpretation Comments WBC (test code = 6690-2) See_Comment [A utomated message] The system [employer] generated this result transmit levi reference range : 4.30 - 11.10 10*3/?L. The reference range was not used to interpret this result as normal/abnormal . RBC (test code = 789-8) See_Comment L [Au tomated message] The system [employer] generated this result transmit levi reference range [...] See_Comment L [Au tomated message] The system [employer] generated this result transmit levi reference range : 166 - 358 10*3/?L. The reference range was not used to interpret this result as normal/abnormal . MPV (test code = 10.9 fL 9.5-12.9 19948-4) RDW-CV (test code = 15.0 % 12.0-15.5 788-0) RDW-SD (test code = 52.6 fL 39.0-49.9 H 27601-5) NRBC x10^3 (test code = <0.01 See_Comment [Au tomated message] 2948962110) The system [employer] generated this result transmit levi reference range : 10*3/?L. The reference range was not used to interpret this result as normal/abnormal . NRBC/100 WBC (test code See_Comment [Au tomated message] = 5968818962) [facility] generated this result transmit levi reference range : 0.0 - 10.0 /100 WBC s. The reference r alba was not used to interpret this result as normal/abnormal . IPF % (test code = 1080545152) Lab Interpretation (test Abnormal code = 95925-9) [facility] (Total Cholesterol, Triglycerides, HDL)2021-05-16 09:36:18 Test Item Value Reference Range Interpretation Comments CHOL (test code = 157 mg/dL 120-200 1140343868) HDL (test code = 26 mg/dL >50 L 1237984027) HDLC RATIO (test code = See_Comment H [Au tomated message] 1512750385) The system [employer] generated this result transmit levi reference range : <=4.5. The refe rence range was not u sed to interpret th is result as normal/abnormal . TRIG (test code = 146 mg/dL 30-170 5064853264) LDL CHOL (test code = 102 mg/dL See_Comment [Auto mated message] 77549-4) The system [employer] generated this result transmit levi reference range : <=160. The refe rence range was not u sed to interpret th is result as normal/abnormal . VLDL (test code = 29 mg/dL 5-60 3967768584) Lab Interpretation (test Abnormal code = 91355-9) [facility]A1C[facility]2021-05-16 09:22:50 Test Item Value Reference Range Interpretation Comments HGB A1C (test code = 6.2 % 4.0-5.7 H 4548-4) BRANDI (test code = BRANDI) Reference RangesNormal: <5.7%Prediabetes: 5.7 - 6.4%Diabetes: > 6.5% Lab Interpretation (test Abnormal code = 32695-5) [facility] [id number] 09:19:18 Test Item Value Reference Interpretation Comments Range TROPONIN I (test 0.028 ng/mL See_Comment [Automated code = 6551143143) message] The system which generated this result [...] biotin. Lab Interpretation Normal (test code = 08773-3) [facility] Metabolic Panel (NA, K, CL, CO2, GLUCOSE, BUN, CREATININE, CA)2021-05-16 09:08:35 Test Item Value Reference Range Interpretation Comments NA (test code = 134 mmol/L 135-145 L 9412940997) K (test code = 4.3 mmol/L 3.5-5.0 3738101733) CL (test code = 98 mmol/L 98-108 9887188557) CO2 TOTAL (test code = 27 mmol/L 23-31 3306532633) AGAP (test code = 2-16 6739533481) BUN (test code = 28 mg/dL 7-23 H 9689932892) GLUCOSE (test code = 114 mg/dL 70-110 H 0872012480) CREATININE (test code = 4.79 mg/dL 0.50-1.04 H 1872042340) CALCIUM (test code = 8.2 mg/dL 8.6-10.6 L 6136885574) eGFR (test code = mL/min/1.73m2 6395515883) BRANDI (test code = BRANDI) Association of [...] tests). Lab Interpretation Abnormal (test code = 55737-7) [facility]Magnesium [id number] 09:08:35 Test Item Value Reference Range Interpretation Comments MAGNESIUM (test code = 9708484787) 2.2 mg/dL 1.7-2.4 Lab Interpretation (test code = Normal 29659-4) [facility]roponin [id number] 03:08:26 Test Item Value Reference Interpretation Comments Range TROPONIN I (test 0.019 ng/mL See_Comment [Automated code = 5506661792) message] The system which generated this result [...] biotin. Lab Interpretation Normal (test code = 11783-8) [facility]osphorus [id number] 02:56:02 Test Item Value Reference Range Interpretation Comments PHOSPHORUS (test code = 5068809717) 4.5 mg/dL 2.5-5.0 Lab Interpretation (test code = Normal 94629-2) [facility]21-[facility]-16 02:28:15 Test Item Value Reference Range Interpretation Comments POCT GLU (test code = 2132082442) 155 mg/dL 70-110 H Lab Interpretation (test code = Abnormal 01648-1) [facility] HospitalThyroid Stimulating Hormone (TSH)2021-05-16 01:56:53 Test Item Value Reference Range Interpretation Comments TSH (test code = See_Comment [Automated message] 8106475960) The system whic h generated this result transmitted ref erence range: 0.45 - 4 .70 mIU/L. The refe rence range was not u sed to interpret this result as normal/abnor mal. Lab Interpretation (test Normal code = 79409-5) [facility]oglobin (A1C)2021-05-16 01:17:48 Test Item Value Reference Range Interpretation Comments HGB A1C (test code = 6.3 % 4.0-5.7 H 4548-4) BRANDI (test code = BRANDI) Reference RangesNormal: <5.7%Prediabetes: 5.7 - 6.4%Diabetes: > 6.5% Lab Interpretation (test Abnormal code = 06663-5) [facility] [id number] 20:42:55 Test Item Value Reference Range Interpretation Comments NT-proBNP (test code 972430 pg/mL See_Comment H [Autom ated = 7048119648) message] The system which generated this result transmitted reference range : <=125. The reference range was not used to interpret this result as normal/abnormal . BRANDI (test code = BRANDI) Biotin has been reported to cause a negative bias, interpret results relative to patient's use of biotin. Lab Interpretation Abnormal (test code = 07843-8) [facility] HospitalTROPONIN [id number] 20:28:40 Test Item Value Reference Interpretation Comments Range TROPONIN I (test 0.012 ng/mL See_Comment [Automated code = 3001462692) message] The system which generated this result [...] biotin. Lab Interpretation Normal (test code = 04058-5) [facility] HospitalD-[id number] 20:27:34 Test Item Value Reference Interpretation Comments Range D-DIMER (test code = See_Comment H [Autom ated 9773824658) message] The system which generated this result [...] diagnosis. Lab Interpretation Abnormal (test code = 36426-6) [facility]2022-[facility]-11 20:17:56 Test Item Value Reference Range Interpretation Comments MAGNESIUM (test code = 6415349221) 1.9 mg/dL 1.7-2.4 Lab Interpretation (test code = Normal 21088-0) [facility] METABOLIC PANEL (96665)2021-05-15 20:17:36 Test Item Value Reference Range Interpretation Comments NA (test code = 136 mmol/L 135-145 5699792571) K (test code = 4.2 mmol/L 3.5-5.0 0947844074) CL (test code = 99 mmol/L 98-108 7548658677) CO2 TOTAL (test code = 26 mmol/L 23-31 5957392680) AGAP (test code = 2-16 3216616649) BUN (test code = 24 mg/dL 7-23 H 2376400703) GLUCOSE (test code = 112 mg/dL 70-110 H 0748503992) CREATININE (test code = 3.82 mg/dL 0.50-1.04 H 3110293898) TOTAL BILI (test code = 1.0 mg/dL 0.1-1.9 6227064156) CALCIUM (test code = 8.5 mg/dL 8.6-10.6 L 8413113681) T PROTEIN (test code = 8.6 g/dL 6.3-8.2 H 4190344481) ALBUMIN (test code = 4.2 g/dL 3.5-5.0 6639715889) ALK PHOS (test code = 176 U/L 34-122 H 6201976793) ALTv (test code = 13 U/L 5-35 1742-6) AST(SGOT) (test code = 26 U/L 13-40 3644612240) eGFR (test code = mL/min/1.73m2 9991411721) BRANDI (test code = BRANDI) Association of [...] tests). Lab Interpretation Abnormal (test code = 86433-7) [facility]LIPASE[facility]22-[facility] 20:17:15 Test Item Value Reference Range Interpretation Comments LIPASE (test code = 2410650948) 125 U/L 0-220 Lab Interpretation (test code = Normal 83309-4) [facility] HospitalPROTHROMBIN TIME / [id number] 20:02:29 Test Item Value Reference Range Interpretation [...] tions. Lab Interpretation (test Normal code = 91140-1) [facility] HospitalCB WITH [id number] 19:52:47 Test Item Value Reference Range Interpretation Comments WBC (test code = See_Comment [Automated 6690-2) message] The sy stem which generated this result transmitted reference range : 4.30 - 11.10 10*3/?L. The reference range was not used to interpret this result as normal/abnormal . RBC (test code = See_Comment L [Automated 499-8) message] The sy stem which generated this [...] (test code = 52.6 fL 39.0-49.9 H 06622-8) RDW-CV (test code = 15.0 % 12.0-15.5 788-0) PLT (test code = See_Comment L [Automated 777-3) message] The sy stem which generated this result transmitted reference range : 166 - 358 10*3/ ?L. The reference r alba was not used to interpret this result as normal/abnormal . MPV (test code = 10.9 fL 9.5-12.9 91714-4) NRBC/100 WBC (test See_Comment [Automat ed code = 1322043880) message] The system which generated this result transmitted reference range : 0.0 - 10.0 /100 WBCs. The refer ence range was not u sed to interpret th is result as normal/abnormal . NRBC x10^3 (test code <0.01 See_Comment [Auto mated = 9856935834) message] The s ystem which generated this result transmitted reference range : 10*3/?L. The reference range was not used to interpret this result as normal/abnormal . GRAN MAT (NEUT) % 74.8 % (test code = 770-8) IMM GRAN % (test code 0.60 % = 0399516342) LYMPH % (test code = 12.4 % 736-9) MONO % (test code = 8.7 % 5905-5) EOS % (test code = 2.6 % 713-8) BASO % (test code = 0.9 % 706-2) GRAN MAT x10^3(ANC) 4.06 10*3/uL 1.88-7.09 (test code = 7502404737) IMM GRAN x10^3 (test 0.03 10*3/uL 0.00-0.06 code = 3354994652) LYMPH x10^3 (test code 0.67 10*3/uL 1.32-3.29 L = 731-0) MONO x10^3 (test code 0.47 10*3/uL 0.33-0.92 = 742-7) EOS x10^3 (test code = 0.14 10*3/uL 0.03-0.39 711-2) BASO x10^3 (test code 0.05 10*3/uL 0.01-0.07 = 704-7) Lab Interpretation Abnormal (test code = 08295-3) [facility] [[facility]/volume] in Serum or [id number] 17:30:00 Test Item Value Reference Range Interpretation Comments Troponin I.cardiac 0.35 See_Comment [Automat ed message] The [Mass/volume] in Serum syste m which generated or Plasma (test code = this result transmitted Troponin I.cardiac reference range: <=0.045. [Mass/volume] in Serum The r eference range was or Plasma) not used to int erpret this result as normal/abnormal . [facility] [id number] 11:37:00 Test Item Value Reference Range Interpretation Comments Absolute lymphocyte count (test code = 0.7 0.7-4.9 Absolute lymphocyte count) [facility] %2019-[facility]-18 11:37:00 Test Item Value Reference Range Interpretation Comments Basophil % (test code = 2.4 See_Comment [Au tomated message] The Basophil %) system which ge nerated this result tra nsmitted reference range : <=1.3. The reference r alba was not used to int erpret this result as normal/abnormal . [facility]annBlood anisocytosis [id number] 11:37:00 Test Item Value Reference Range Interpretation Comments Blood anisocytosis detection (test code 2+ = Blood anisocytosis detection) [facility] erythrocytes count (number/volume)2019-02-18 11:37:00 Test Item Value Reference Range Interpretation Comments Blood erythrocytes count 3.34 3.86-4.86 (number/volume) (test code = Blood erythrocytes count (number/volume)) [facility]Blood hematocrit (volume fraction)2019-02-18 11:37:00 Test Item Value Reference Range Interpretation Comments Blood hematocrit (volume fraction) 31.8 36.0-45.0 (test code = Blood hematocrit (volume fraction)) [facility]annBlood morphology interpretation [id number] 11:37:00 Test Item Value Reference Range Interpretation Comments Blood morphology interpretation Noted narrative (test code = Blood morphology interpretation narrative) [facility] [id number] 11:37:00 Test Item Value Reference Range Interpretation Comments Blood platelet mean volume (test code = 9.8 7.6-11.3 Blood platelet mean volume) [facility] poikilocytosis detection by light [id number] 11:37:00 Test Item Value Reference Range Interpretation Comments Blood poikilocytosis detection by light 1+ microscopy (test code = Blood poikilocytosis detection by light microscopy) [facility]Calcium [Mass/volume] in Serum or [id number] 11:37:00 Test Item Value Reference Range Interpretation [...] [Moles/volume] in Serum or Plasma) [facility]Chem[facility] [id number] 11:37:00 Test Item Value Reference Range Interpretation Comments Chemistry procedure (test code = 95.3 80-100 Chemistry procedure) [facility]Chloride [Moles/volume] in Serum or [id number] 11:37:00 Test Item Value Reference Range Interpretation Comments Chloride [Moles/volume] in Serum or 98 98-107 Plasma (test code = Chloride [Moles/volume] in Serum or Plasma) [facility]annCreatinine [Mass/volume] in Serum or [id number] 11:37:00 Test Item Value Reference Range Interpretation Comments Creatinine [Mass/volume] in Serum or 7.35 0.55-1.3 Plasma (test code = Creatinine [Mass/volume] in Serum or Plasma) [facility]Glucose [Mass/volume] in Serum or [id number] 11:37:00 Test Item Value Reference Range Interpretation Comments Glucose [Mass/volume] in Serum or 110 74-106 Plasma (test code = Glucose [Mass/volume] in Serum or Plasma) [facility]annMagnesium [Mass/volume] in Serum or [id number] 11:37:00 Test Item Value Reference Range Interpretation Comments Magnesium [Mass/volume] in Serum or 2.4 1.8-2.4 Plasma (test code = Magnesium [Mass/volume] in Serum or Plasma) [facility]Phosphate [Mass/volume] in Serum or [id number] 11:37:00 Test Item Value Reference Range Interpretation Comments Phosphate [Mass/volume] in Serum or 4.7 2.5-4.9 Plasma (test code = Phosphate [Mass/volume] in Serum or Plasma) [facility]Potassium [Moles/volume] in Serum or [id number] 11:37:00 Test Item Value Reference Range Interpretation [...] [facility]annUrea nitrogen [Mass/volume] in Serum or [id number] 11:37:00 Test Item Value Reference Range Interpretation Comments Urea nitrogen [Mass/volume] in Serum or 74 7-18 Plasma (test code = Urea nitrogen [Mass/volume] in Serum or Plasma) [facility]annUrine dipstick testing at [id number] 11:37:00 Test Item Value Reference Range Interpretation Comments Urine dipstick testing at llzqo-bd-igro 2.6 4.3-10.9 (test code = Urine dipstick testing at mucau-ck-onxt) [facility]annAlanine aminotransferase [Enzymatic activity/volume] in Serum or Plasma by With P-5'-2019-02-18 00:35:00 Test Item Value Reference Range Interpretation Comments Alanine aminotransferase [Enzymatic 64 12-78 activity/volume] in Serum or Plasma by With P-5'- (test code = Alanine aminotransferase [Enzymatic activity/volume] in Serum or Plasma by With P-5'-) [facility]annAlbumin [Mass/volume] in Serum or Plasma by Bromocresol purple (BCP) dye binding [id number] 00:35:00 Test Item Value Reference Range Interpretation Comments Albumin [Mass/volume] in Serum or 3.6 3.4-5.0 Plasma by Bromocresol purple (BCP) dye binding meth (test code = Albumin [Mass/volume] in Serum or Plasma by Bromocresol purple (BCP) dye binding meth) [facility]annAlkaline phosphatase [Enzymatic activity/volume] in Serum or [id number] 00:35:00 Test Item Value Reference Range Interpretation Comments Alkaline phosphatase [Enzymatic 236 45-117 activity/volume] in Serum or Plasma (test code = Alkaline phosphatase [Enzymatic activity/volume] in Serum or Plasma) [facility] HermannAspartate aminotransferase [Enzymatic activity/volume] in Serum or Plasma by With [id number] 00:35:00 Test Item Value Reference Range Interpretation Comments Aspartate aminotransferase [Enzymatic 48 15-37 activity/volume] in Serum or Plasma by With P-5 (test code = Aspartate aminotransferase [Enzymatic activity/volume] in Serum or Plasma by With P-5) [facility]annBilirubin.direct [Mass/volume] in Serum or [id number] 00:35:00 Test Item Value Reference Range Interpretation Comments Bilirubin.direct 0.2 See_Comment [Automated message] The [Mass/volume] in Serum syste m which generated or Plasma (test code = this result transmitted Bilirubin.direct reference r alba: <=0.2. [Mass/volume] in Serum The r eference range was or Plasma) not used to int erpret this result as emilee l/abnormal. [facility]annBilirubin.total [Mass/volume] in Serum or [id number] 00:35:00 Test Item Value Reference Range Interpretation Comments Bilirubin.total [Mass/volume] in Serum 0.6 0.2-1.0 or Plasma (test code = Bilirubin.total [Mass/volume] in Serum or Plasma) [facility]annINR in Blood by Coagulation [id number] 00:35:00 Test Item Value Reference Range Interpretation Comments INR in Blood by Coagulation assay 1.15 1 (test code = INR in Blood by Coagulation assay) [facility]annNatriuretic peptide.B prohormone N-Terminal [Mass/volume] in Serum or [id number] 00:35:00 Test Item Value Reference Range Interpretation Comments Natriuretic peptide.B prohormone > 200514 N-Terminal [Mass/volume] in Serum or Plasma (test code = Natriuretic peptide.B prohormone N-Terminal [Mass/volume] in Serum or Plasma) [facility]annProtein [Mass/volume] in Serum or [id number] 00:35:00 Test Item Value Reference Range Interpretation Comments Protein [Mass/volume] in Serum or 8.0 6.4-8.2 Plasma (test code = Protein [Mass/volume] in Serum or Plasma) [facility]annTroponin I.cardiac [Mass/volume] in Serum or [id number] 00:35:00 Test Item Value Reference Range Interpretation Comments Troponin I.cardiac 0.32 See_Comment [Automat ed message] The [Mass/volume] in Serum syste m which generated or Plasma (test code = this result transmitted Troponin I.cardiac reference range: <=0.045. [Mass/volume] in Serum The r eference range was or Plasma) not used to int erpret this result as normal/abnormal . [facility] HermannBlood hematocrit (volume fraction)2019-01-26 04:05:00 Test Item Value Reference Range Interpretation Comments Blood hematocrit (volume fraction) 35.7 36.0-45.0 (test code = Blood hematocrit (volume fraction)) [facility]annBlood morphology interpretation [id number] 04:05:00 Test Item Value Reference Range Interpretation Comments Blood morphology interpretation Not seen narrative (test code = Blood morphology interpretation narrative) [facility]Blood platelet mean [id number] 04:05:00 Test Item Value Reference Range Interpretation Comments Blood platelet mean volume (test code = 9.2 7.6-11.3 Blood platelet mean volume) [facility]annCalcium [Mass/volume] in Serum or [id number] 04:05:00 Test Item Value Reference Range Interpretation Comments Calcium [Mass/volume] in Serum or 6.8 8.5-10.1 Plasma (test code = Calcium [Mass/volume] in Serum or Plasma) [facility] HermannCarbon dioxide, total [Moles/volume] in Serum or Plasma 2019-01-26 04:05:00 Test Item Value Reference Range Interpretation Comments Carbon dioxide, total [Moles/volume] in 26 21-32 Serum or Plasma (test code = Carbon dioxide, total [Moles/volume] in Serum or Plasma) [facility]annChem[facility] [id number] 04:05:00 Test Item Value Reference Range Interpretation Comments Chemistry procedure (test code = 98.1 80-100 Chemistry procedure) [facility]annChloride [Moles/volume] in Serum or [id number] 04:05:00 Test Item Value Reference Range Interpretation Comments Chloride [Moles/volume] in Serum or 98 98-107 Plasma (test code = Chloride [Moles/volume] in Serum or Plasma) [facility]annCreatinine [Mass/volume] in Serum or [id number] 04:05:00 Test Item Value Reference Range Interpretation Comments Creatinine [Mass/volume] in Serum or 6.36 0.55-1.3 Plasma (test code = Creatinine [Mass/volume] in Serum or Plasma) [facility]annGlucose [Mass/volume] in Serum or [id number] 04:05:00 Test Item Value Reference Range Interpretation Comments Glucose [Mass/volume] in Serum or 251 74-106 Plasma (test code = Glucose [Mass/volume] in Serum or Plasma) [facility]annPotassium [Moles/volume] in Serum or [id number] 04:05:00 Test Item Value Reference Range Interpretation Comments Potassium [Moles/volume] in Serum or 4.7 3.5-5.1 Plasma (test code = Potassium [Moles/volume] in Serum or Plasma) [facility]annSerum or plasma sodium measurement (moles/volume)2019-01-26 04:05:00 Test Item Value Reference Range Interpretation Comments Serum or plasma sodium measurement 136 136-145 (moles/volume) (test code = Serum or plasma sodium measurement (moles/volume)) [facility]annUrea nitrogen [Mass/volume] in Serum or [id number] 04:05:00 Test Item Value Reference Range Interpretation Comments Urea nitrogen [Mass/volume] in Serum or 52 7-18 Plasma (test code = Urea nitrogen [Mass/volume] in Serum or Plasma) [facility]annUrine dipstick testing at [id number]-xc-[id number] 04:05:00 Test Item Value Reference Range Interpretation Comments Urine dipstick testing at smxdn-sg-qfen 3.4 4.3-10.9 (test code = Urine dipstick testing at rqwxi-by-rnth) [facility] [id number] 04:05:00 Test Item Value Reference Range Interpretation Comments Absolute lymphocyte count (test code = 0.6 0.7-4.9 Absolute lymphocyte count) [facility]Bas[facility]2019-[facility]-26 04:05:00 Test Item Value Reference Range Interpretation Comments Basophil % (test code = 1.5 See_Comment [Au tomated message] The Basophil %) system which ge nerated this result tra nsmitted reference range : <=1.3. The reference r alba was not used to int erpret this result as normal/abnormal . [facility] erythrocytes count (number/volume)2019-01-26 04:05:00 Test Item Value Reference Range Interpretation Comments Blood erythrocytes count 3.64 3.86-4.86 (number/volume) (test code = Blood erythrocytes count (number/volume)) [facility] [id number] 01:55:00 Test Item Value Reference Range Interpretation Comments Bacterial culture w ID NORMAL UPPER (test code = Bacterial RESPIRATORY HARI culture w ID) GROWN. [facility]fieldLaboraMicro[facility] Global [id number] 16:07:00 Test Item Value Reference Range Interpretation Comments Bedside Glucose (test code = Bedside 175 65-120 Glucose) [facility] [id number] 05:35:00 Test Item Value Reference Range Interpretation Comments Blood Morphology Blood Morphology Comment (test code = Comment Blood Morphology Comment) [facility] [id number] 05:35:00 Test Item Value Reference Range Interpretation Comments Total Bilirubin (test code = Total 0.5 0.2-1.0 Bilirubin) [facility] [id number] 05:35:00 Test Item Value Reference Range Interpretation Comments Sodium Level (test code = Sodium Level) 137 136-145 [facility] [id number] 05:35:00 Test Item Value Reference Range Interpretation Comments Serum Total Protein (test code = Serum 7.5 6.4-8.2 Total Protein) [facility] [id number] 05:35:00 Test Item Value Reference Range Interpretation Comments Potassium Level (test code = Potassium 4.8 3.5-5.1 Level) [facility]2019-07-10 05:35:00 Test Item Value Reference Range Interpretation Comments Glucose Level (test code = Glucose 90 74-106 Level) [facility]2019-07-10 05:35:00 Test Item Value Reference Range Interpretation Comments Globulin (test code = Globulin) 4.3 2.3-3.5 [facility]2019-07-10 05:35:00 Test Item Value Reference Range Interpretation Comments Estimat Glomerular 7 See_Comment [Automat ed message] The Filtration Rate (test system which generated code = Estimat this result t ransmitted Glomerular Filtration refere nce range: >=90. Rate) The reference r alba was not used to int erpret this result as normal/abnormal . [facility]2019-07-10 05:35:00 Test Item Value Reference Range Interpretation Comments Creatinine (test code = Creatinine) 6.02 0.55-1.3 [facility]2019-07-10 05:35:00 Test Item Value Reference Range Interpretation Comments Chloride Level (test code = Chloride 102 98-107 Level) [facility]2019-07-10 05:35:00 Test Item Value Reference Range Interpretation Comments Carbon Dioxide Level (test code = 25 21-32 Carbon Dioxide Level) [facility]2019-07-10 05:35:00 Test Item Value Reference Range Interpretation Comments Calcium Level (test code = Calcium 8.1 8.5-10.1 Level) [facility]2019-07-10 05:35:00 Test Item Value Reference Range Interpretation Comments Blood Urea Nitrogen (test code = Blood 43 7-18 Urea Nitrogen) [facility]2019-07-10 05:35:00 Test Item Value Reference Range Interpretation Comments Aspartate Amino Transf (AST/SGOT) (test 36 15-37 code = Aspartate Amino Transf (AST/SGOT)) [facility]2019-07-10 05:35:00 Test Item Value Reference Range Interpretation Comments Alkaline Phosphatase (test code = 252 45-117 Alkaline Phosphatase) [facility]2019-07-10 05:35:00 Test Item Value Reference Range Interpretation Comments Albumin/Globulin Ratio (test code = 0.7 1 1.1-1.8 Albumin/Globulin Ratio) [facility]2019-07-10 05:35:00 Test Item Value Reference Range Interpretation Comments Albumin (test code = Albumin) 3.2 3.4-5.0 [facility]2019-07-10 05:35:00 Test Item Value Reference Range Interpretation Comments Alanine Aminotransferase (ALT/SGPT) 57 12-78 (test code = Alanine Aminotransferase (ALT/SGPT)) [facility]2019-07-10 05:35:00 Test Item Value Reference Range Interpretation Comments White Blood Count (test code = White 2.9 4.3-10.9 Blood Count) [facility]2019-07-10 05:35:00 Test Item Value Reference Range Interpretation Comments Red Cell Distribution Width (test code 17.2 12.1-15.2 = Red Cell Distribution Width) [facility]2019-07-10 05:35:00 Test Item Value Reference Range Interpretation Comments Red Blood Count (test code = Red Blood 3.49 3.86-4.86 Count) [facility]2019-07-10 05:35:00 Test Item Value Reference Range Interpretation Comments Platelet Count (test code = Platelet 116 152-406 Count) [facility]2019-07-10 05:35:00 Test Item Value Reference Range Interpretation Comments Neutrophils % (test code = Neutrophils 49.4 41.7-73.7 %) [facility]2019-07-10 05:35:00 Test Item Value Reference Range Interpretation Comments Monocytes % (test code = Monocytes %) 10.4 3.3-12.3 [facility]2019-07-10 05:35:00 Test Item Value Reference Range Interpretation Comments Mean Platelet Volume (test code = Mean 8.7 7.6-11.3 Platelet Volume) [facility]2019-07-10 05:35:00 Test Item Value Reference Range Interpretation Comments Mean Corpuscular Volume (test code = 98.2 80-100 Mean Corpuscular Volume) [facility]2019-07-10 05:35:00 Test Item Value Reference Range Interpretation Comments Mean Corpuscular Hemoglobin Concent 33.0 32.0-36.0 (test code = Mean Corpuscular Hemoglobin Concent) [facility]2019-07-10 05:35:00 Test Item Value Reference Range Interpretation Comments Mean Corpuscular Hemoglobin (test 32.4 pg 27.0-35.0 code = Mean Corpuscular Hemoglobin) [facility]2019-07-10 05:35:00 Test Item Value Reference Range Interpretation Comments Lymphocytes % (test code = Lymphocytes 30.3 15.3-44.8 %) [facility]2019-07-10 05:35:00 Test Item Value Reference Range Interpretation Comments Hemoglobin (test code = Hemoglobin) 11.3 12.0-15.0 [facility]2019-07-10 05:35:00 Test Item Value Reference Range Interpretation Comments Hematocrit (test code = Hematocrit) 34.3 36.0-45.0 [facility]2019-07-10 05:35:00 Test Item Value Reference Range Interpretation Comments Eosinophils % (test code 8.8 See_Comment [A utomated message] The = Eosinophils %) system [facility] h generated this result tra nsmitted reference range : <=4.4. The reference r alba was not used to int erpret this result as normal/abnormal . [facility]2019-07-10 05:35:00 Test Item Value Reference Range Interpretation Comments Basophils % (test code 1.1 See_Comment [Aut omated message] The = Basophils %) system which generated this result tra nsmitted reference range : <=1.3. The reference r alba was not used to int erpret this result as normal/abnormal . [facility]2019-07-10 05:35:00 Test Item Value Reference Range Interpretation Comments Absolute Neutrophil (test code = 1.4 1.8-8.0 Absolute Neutrophil) [facility]2019-07-10 05:35:00 Test Item Value Reference Range Interpretation Comments Absolute Monocytes (CBC) (test code = 0.3 0.1-1.3 Absolute Monocytes (CBC)) [facility]2019-07-10 05:35:00 Test Item Value Reference Range Interpretation Comments Absolute Lymphocytes (CBC) (test code = 0.9 0.7-4.9 Absolute Lymphocytes (CBC)) [facility]2019-07-10 05:35:00 Test Item Value Reference Range Interpretation Comments Absolute Eosinophils 0.3 See_Comment [Autom ated message] The (CBC) (test code = system wh ich generated Absolute Eosinophils this re sult transmitted (CBC)) reference range : <=0.5. The reference r alba was not used to int erpret this result as normal/abnormal . [facility]2019-07-10 05:35:00 Test Item Value Reference Range Interpretation Comments Absolute Basophils 0.0 See_Comment [Automat ed message] The (CBC) (test code = system wh ich generated Absolute Basophils this resu lt transmitted (CBC)) reference range : <=0.5. The reference r alba was not used to int erpret this result as normal/abnormal . [facility]2019-07-09 05:43:00 Test Item Value Reference Range Interpretation Comments Prothrombin Time (test code = 12.9 9.5-12.5 Prothrombin Time) [facility]2019-07-09 05:43:00 Test Item Value Reference Range Interpretation Comments INR International Normalized Ratio 1.10 1 (test code = INR International Normalized Ratio) [facility]2019-07-09 05:43:00 Test Item Value Reference Range Interpretation Comments Triglycerides Level (test code = 89 Triglycerides Level) [facility]2019-07-09 05:43:00 Test Item Value Reference Range Interpretation Comments Phosphorus Level (test code = 6.3 2.5-4.9 Phosphorus Level) [facility]2019-07-09 05:43:00 Test Item Value Reference Range Interpretation Comments Magnesium Level (test code = Magnesium 2.3 1.8-2.4 Level) [facility]2019-07-09 05:43:00 Test Item Value Reference Range Interpretation Comments LDL Cholesterol, Calculated (test code 47 1 = LDL Cholesterol, Calculated) [facility]2019-07-09 05:43:00 Test Item Value Reference Range Interpretation Comments HDL Cholesterol (test code = HDL 57 40-60 Cholesterol) [facility]2019-07-09 05:43:00 Test Item Value Reference Range Interpretation Comments Cholesterol/HDL Ratio (test code = 2.14 1 Cholesterol/HDL Ratio) [facility]2019-07-09 05:43:00 Test Item Value Reference Range Interpretation Comments Cholesterol Level (test code = 122 Cholesterol Level) [facility]2019-07-08 19:49:00 Test Item Value Reference Range Interpretation Comments Troponin I (test code = 0.59 See_Comment [Au tomated message] The Troponin I) system which ge nerated this result tra nsmitted reference range : <=0.045. The reference r alba was not used to int erpret this result as normal/abnormal . [facility]2019-07-08 12:50:00 Test Item Value Reference Range Interpretation Comments Hepatitis B Surface Hepatitis B Surface Antigen (test code = Antigen Hepatitis B Surface Antigen) [facility]2019-07-08 12:50:00 Test Item Value Reference Range Interpretation Comments Hepatitis B Surface Hepatitis B Surface Antibody (test code = Antibody Hepatitis B Surface Antibody) [facility]2019-07-08 12:50:00 Test Item Value Reference Range Interpretation Comments Hepatitis B Core Total Hepatitis B Core Total Antibody (test code = Antibody Hepatitis B Core Total Antibody) [facility]2019-07-08 12:50:00 Test Item Value Reference Range Interpretation Comments Hepatitis C Antibody Hepatitis C Antibody (test code = Hepatitis C Antibody) [facility]2019-07-08 12:50:00 Test Item Value Reference Range Interpretation Comments Hepatitis C Ab Signal/Cutoff Ratio 0.05 ratio (test code = Hepatitis C Ab Signal/Cutoff Ratio) [facility]2019-07-08 07:36:00 Test Item Value Reference Range Interpretation Comments Rapid Troponin I (test 0.66 See_Comment [Aut omated message] The code = Rapid Troponin system which generated I) this result tra nsmitted reference range : <=0.045. The reference r alba was not used to int erpret this result as normal/abnormal . [facility]2019-07-08 07:36:00 Test Item Value Reference Range Interpretation Comments IJ-Svx-T-Type Natriuretic Peptide (test 48453 code = PB-Itr-L-Type Natriuretic Peptide) [facility]
--- NOTE | 2021-11-17 15:10 | OP ---
Date of Procedure: 10/15/2021 Surgeon: ANUM OCONNOR Procedure Performed: Selective coronary angiogram with bypass graft study. Indication: Non-ST elevation myocardial infarction. Access: Right femoral artery closed with a 6-[place] Angio-Seal. Complications: None. Bleeding: Less than 10 mL. Anesthesia: Total sedation time was 45 minutes. Used fentanyl and Versed. Description Of Procedure: After risks, benefits, and alternatives were explained, the patient agreed to the procedure and signed informed consent. The patient was brought into the cardiac catheterizat ion laboratory, prepped and draped in the usual sterile fashion. Then, we accessed right femoral art kacey using micropuncture kit, fluoroscopy, and ultrasound, placed 6-[place] sheath and took a 6-[place] JL4 catheter into the aortic root, engaged the left main and then exchanged for a 6-[place] J R4, engaged the RCA, SVG graft to RCA, SVG graft to OM1, and the BAUER to the LAD. I removed the cath eter and sheath, and manual pressure to achieve hemostasis. Findings: 1.Left main is large and normal. 2.LAD; diffuse, proximal 80% to 90%, and stenosis. 3.Left circumflex; there is 100% occluded OM, otherwise with luminal regularities. 4.RCA; large and dominant with mid diffuse 80% to 90%. Graft Study: 1.Patent BAUER to LAD with 30% stenosis at the anastomosis site, but good blood flow. 2.Patent SVG to OM. 3.Patent SVG to RCA, but with slow flow. Conclusion: 1.Severe [place] coronary artery disease. 2.Patent grafts. Recommendation: Aggressive medical management of coronary artery disease. SR/MODL Voice ID: [id number] Report ID: [id number]
== END 2021-10-16 16:40 | disposition home health service (06) | DRG 252 ==
LOC: ER 11:03 → ERHOLD 15:02 → 2ND 18:27 → OBSVTOIN 10-13 17:42
PROVIDERS: ADMIT Hospitalist; ATTEND Hospitalist
PROC: 5A1D70Z Performance of Urinary Filtration, Intermittent, Less than 6 Hours Per Day (ICD-10-PCS; principal; 2021-10-13)
PROC: 5A1D70Z Performance of Urinary Filtration, Intermittent, Less than 6 Hours Per Day (ICD-10-PCS; 2021-10-14)
PROC: 047K3DZ Dilation of Right Femoral Artery with Intraluminal Device, Percutaneous Approach (ICD-10-PCS; 2021-10-15)
PROC: B2031ZZ Plain Radiography of Multiple Coronary Artery Bypass Grafts using Low Osmolar Contrast (ICD-10-PCS; 2021-10-15)
PROC: B2011ZZ Plain Radiography of Multiple Coronary Arteries using Low Osmolar Contrast (ICD-10-PCS; 2021-10-15)
DX: I21.4 Non-ST elevation (NSTEMI) myocardial infarction (principal); N18.6 End stage renal disease; I12.0 Hypertensive chronic kidney disease with stage 5 chronic kidney disease or end stage renal disease; E87.2 Acidosis; N25.81 Secondary hyperparathyroidism of renal origin; I25.9 Chronic ischemic heart disease, unspecified; E11.22 Type 2 diabetes mellitus with diabetic chronic kidney disease; R04.0 Epistaxis; D63.1 Anemia in chronic kidney disease; E78.5 Hyperlipidemia, unspecified; E11.40 Type 2 diabetes mellitus with diabetic neuropathy, unspecified; E11.21 Type 2 diabetes mellitus with diabetic nephropathy; I25.10 Atherosclerotic heart disease of native coronary artery without angina pectoris; I70.1 Atherosclerosis of renal artery; E87.5 Hyperkalemia; Z95.1 Presence of aortocoronary bypass graft; Z86.16 Personal history of COVID-19; Z99.2 Dependence on renal dialysis; Z23 Encounter for immunization; Z95.0 Presence of cardiac pacemaker
CPT/HCPCS: 36415; 37226; 71045; 76937; 78452; 80048; 80061; 82947; 83735; 83880; 84484; 85025; 85347; 85610; 85730; 90471; 90732; 90935; 93005; 93017; 93306; 93461; 96374; 99285; A9500; C1725; C1769; C1893; G0378; J0360; J1644; J2270; J2405; J2785; J3010; J7040; Q9967; U0003

== ENCOUNTER 2021-11-14 03:53 | Observation (INO) | payer OTHER ==
--- OUTSIDE RECORDS SUMMARY | 2021-11-14 04:38 | XMS REPORT | Continuity of Care Document ---
:1955 Author Organization [facility] t Address [address] [place] [address] Care Team Providers Name Role Phone Dianna Nunes MD, [place] Primary Care Physician [phone] ANGELA LOCO Attending Clinician Unavail able ROGER ARAUJO Attending Clinician Unavailable ROGER ARAUJO Attending Clinician Unavailable Doctor Unassigned, [place] Attending Clinician Unavailable Alfredo TRUJILLO, Brenda Attending Clinician NADYA MENDIOLA Attending Clinician Unavailable LOGAN RUSSO Attending Clinician Unavailable URI UMANZOR Attending Clinician Unavailable Beronica TRUJILLO, Angela Torres Attending Clinician [phone] Mitchel TRUJILLO, Nicola Thomas Attending Clinician Ju TRUJILLO, Krzysztof Biggs Attending Clinician Marissa TRUJILLO, Fadia Smith Attending Clinician Max TRUJILLO, Asad Whitman Attending Clinician [phone] Nikolay TRUJILLO, Vahid Mai Attending Clinician Logan Russo MD Attending Clinician Ellie TRUJILLO, Sade Sandoval Attending Clinician Shawnpilo Robbjane Attending Clinician Unavailable Donte TRUJILLO, Mili Attending Clinician Donald DORSEY, Rakan Damon Attending Clinician Unavailable Dina Hudson Attending Clinician Unavailable Dangelo Ibrahim DO Attending Clinician Neil Thomas MD Attending Clinician NEIL THOMAS Attending Clinician Unavailable Niki Dill RN Attending Clinician Unavailable Jayjay Frazier Attending Clinician Unavailable Pascale Alvarez PA-C Attending Clinician ANGELA LOOC Admitting Clinician Unavail able JAMESON KUO Admitting Clinician Unavailable William TRUJILLO, Neil Admitting Clinician NELI THOMAS Admitting Clinician Unavailable Payers Payer Name Policy Type Policy Number Effective Date Expiration Date S justice [employer] MEDICARE [id number] 2020 00:00:00 MEDICAID [place] [id number] 2019 00:00:00 WELLMED/[employer] MCARE [id number] 2021 ADV CHOICE PPO 00:00:00 [place] [id number] 2018 00:00:00 Problems Condition Condition Condition Status Onset Resolution Last Treating Co mments Source Name Details Category Date Date Treatment Clinician Date S/P MVR S/P MVR Disease Active Univers (mitral (mitral 6-28 ity of valve valve 00:00: [place] repair) repair) 00 Medical Branch S/P TVR S/P TVR Disease Active Univers (tricuspid (tricuspid 6-28 it y of valve valve 00:00: [place] repair) repair) 00 Medical Branch Endocardit Endocardit [...] Decreased Disease Active Uni vers activities activities - it y of of daily of daily 00:00: [place] living living 00 Medical (ADL) (ADL) Branch Dyslipidem Dyslipidem Disease Active U nivers ia ia 6-03 ity of 00:00: [place] [facility] Decreased Decreased Disease Active Uni vers appetite appetite 6-03 ity of 00:00: [place] [facility] Seizure Seizure Disease Active Univers 6-03 ity of 00:00: [place] [facility] 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 00 [facility] depressive depressive Br anch disorder, disorder, without without psychotic psychotic features features Generalize Generalize Disease Active U nivers d anxiety d anxiety 09-04 ity of disorder disorder 00:00: [place] [facility] Panic Panic Disease Active Univers attacks attacks - ity of 00:00: [place] [address] Medical Branch Encounter Encounter Disease Active Uni vers to to 08-28 [place] of establish establish 00:00[place] care 00 [facility] Branch Hepatic Hepatic Disease Active Univers cirrhosis, cirrhosis, 08-28 it y of unspecifie unspecifie [place] hepatic [place] hepatic 00 Medi yoel cirrhosis cirrhosis Bran ch type, type, unspecifie unspecifie d whether d whether ascites ascites present present E44.1 Mild E44.1 Mild Disease Active U nivers protein-ca protein-ca 4-05 it y of sadi sadi 00:00: [place] malnutriti malnutriti 00 Me dical on on Branch Hematochez Hematochez Disease Active U nivers ia ia 4-04 ity of 00:00: [place] [facility] MV MV Disease Active [facility] Endocardit Endocardit 3-17 Felicita kes is is 00:00: [address] Moderate Moderate Disease Active [facility] tricuspid tricuspid 3-17 [facility] regurgitat regurgitat 00:00: Me dical ion S/P ion S/P 00 [place] Tricuspid Tricuspid valve valve repair repair (Drs. Russo (Drs. Russo and lilliam Pearsonza Preventza 06/18/2021 06/18/2021 ) ) S/P CABG [...] 3-17 [facility] post-op post-op 00:00: Medical 00 [place] Acute Acute Disease Active [facility] blood loss blood loss 3-17 Felicit[facility] kes anemia anemia 00:00: Medical 00 [place] Acute Acute Disease Active [facility] postoperat postoperat 3-17 [facility] kes cristela pain cristela pain 00:00: Medica l 00 [place] Acute Acute Disease Active [facility] encephalop encephalop 3-12 [facility] kes athy athy 00:00: Medical 00 [place] HTN HTN Disease Active [facility] (hypertens (hypertens 3-12 Fel[place] kes ion), ion), 00:00: Medical chronic chronic 00 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 [facility] (subarachn (subarachn 3-11 Felicit[facility] kes oid oid 00:00: Medical hemorrhage hemorrhage 00 Ce nter ) ) Streptococ Streptococ Disease Active [facility] cus bovis cus bovis 3-07 [facility] infection infection 00:00: Medi yoel 00 [place] 06/18/21: 06/18/21: Disease Active [facility] t MV Repair MV Repair 3-06 [facility] & TV & TV 00:00: Medical Repair Repair 00 [place] (Russo) (Russo) Pulmonary Pulmonary Disease Active Uni vers hypertensi hypertensi 2-13 it y of on on 00:00: 00 Medical Branch Acute on Acute on Disease Active Unive rs chronic chronic 2-13 ity of respirator [place] failure 00 [facility] with with Branch hypoxia hypoxia ESRD (end ESRD (end Disease Active Uni vers stage stage 2-12 ity of renal renal 00:00: [place] disease) disease) 00 Medica l on on Branch dialysis dialysis Coronary Coronary Disease Active Unive rs artery artery 2-12 ity of disease disease 00:00: [place] involving involving 00 [facility] iqugmiut iqugmiut Branch coronary coronary artery of artery of iqugmiut iqugmiut heart with heart with angina angina pectoris pectoris Pacemaker Pacemaker Disease Active Uni vers 2-12 ity of 00:00: 00 Medical Branch Acute on Acute on Disease Active Unive rs chronic chronic 2-12 ity of diastolic diastolic 00:00[place] congestive congestive 00 Me dical heart heart Branch failure failure PAD PAD Disease Active Univers (periphera (periphera 2-12 it y of l artery l artery 00:00: [place] disease) disease) 00 Medica l Branch Primary Primary Disease Active Univers hypertensi hypertensi 2-12 it y of on on 00:00: 00 Medical Branch Type 2 Type 2 [...] cular 2-11 ity of accident accident 00:00: [place] (CVA), (CVA), 00 Medical unspecifie unspecifie Br anch d d mechanism mechanism ESRD on ESRD on Disease Active Univers dialysis dialysis 2-11 ity of 00:00: Medical Branch Fall on Fall on Disease Active Univers concrete concrete 2-11 ity of 00:00: [place] [facility] Acute pain Acute pain Disease Active U nivers of right of right 2-11 ity of knee knee 00:00: Medical Branch Dizziness Dizziness Disease Active Uni vers 2-11 ity of 00:00: [place] [facility] Lower leg Lower leg Disease Active Uni vers edema edema 2-11 ity of 00:00: [place] [facility] Abnormal Abnormal Disease Active Unive rs EKG EKG 2-11 ity of 00:00: [place] [facility] Chest Chest Disease Active Univers pressure pressure 2-11 ity of 00:00: [place] [facility] Chest pain Chest pain Disease Active U nivers 2-11 ity of 00:00: Medical Branch Postmenopa Postmenopa Disease Active U nivers usal usal 4-20 ity of bleeding bleeding 00:00: [place] [facility] Obesity Obesity Disease Active Univers [...] chronic kidney kidney disease disease Episode of Episode Problem 2019-02-19 Memoria generalize of 22:28:00 l d weakness generalize He rmann d weakness Problem 02/19/[address] [facility] Hyperkalem Hyperkale Problem 2019-02-19 Memoria ia brett 22:28:00 l Problem Juanito 02/19/[address] [facility] Elevated Elevated Condition 2019-02-19 [place] brain brain 22:28:00 l natriureti natriureti Ananth scott c peptide c peptide (BNP) (BNP) level level Condition 02/19/[address] [facility] Episode of Episode Condition 2019-02-19 Memoria generalize of 22:28:00 l d weakness generalize He rmann d weakness Condition 02/19/[address] [facility] Hyperkalem Hyperkale Condition 2019-02-19 Memoria ia brett 22:28:00 l Condition Juanito 02/19/[address] [facility] Hypertensi Hypertens Condition 2019-02-19 Memoria on with ion with 22:28:00 l goal to be goal to be He rmann determined determined Condition 02/19/[address] [facility] Acute Acute Condition 2019-02-19 Me moria respirator respirator 22:28:00 l y disease y disease Herm ivelisse Condition 02/19/[address] [facility] End-stage End-stage Condition 2019-02-19 Memoria renal renal 22:28:00 l disease on disease on He rmann hemodialys hemodialys is is Condition 02/19/[address] [facility] 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 End-stage End-stage Problem 2019-02-19 Memoria renal renal 22:28:00 l disease on disease on He rmann hemodialys hemodialys is is Problem [address] [facility] Upper Upper Problem 2019-02-19 Dickson kulwinder respirator respirator 22:28:00 l y y [place] infection infection Problem 02/19/[address] [facility] Elevated Elevated Problem 2019-02-19 Memoria troponin troponin 22:28:00 l level level Juanito Problem 02/19/[address] [facility] Wears Wears Disease Active [facility] glasses glasses [facility] Allergies, Adverse Reactions, Alerts Allergy Allergy Status Severity Reaction(s) Onset Inactive Treating Comm ents Source Name Type Date Date Clinician Heparin Propensi Active "won't Methodi ty to 7-[address] adverse 00:00: bleeding" Hospit a reaction 00 l s to drug NO KNOWN Drug Active [facility] ALLERGIE Class ity of S [facility] NO KNOWN Allergy Active [facility] ALLERGIE S Family History Family Member Diagnosis Comments Start Date Stop Date Source Natural brother [facility] Natural father Diabetes [facility] Natural mother Diabetes [facility] Natural sister [facility] Social History Social Habit Start Date Stop Date Quantity Comments Source History [facility] Alcohol Std Drinks History [facility] Alcohol Binge History [facility] Alcohol Comment Exposure to 2021-09-19 2021-09-29 [facility] 14:42:00 [facility] (event) [place] Tobacco use and 2020-07-24 2020-07-[address] [facility] [address] Felicita kes exposure 00:00:00 00:00:00 [facility] Social History 2019-02-19 2019-02-19 [facility] 22:28:00 22:28:00 Alcohol intake 2018-10-27 2018-10-27 [facility] 00:00:00 00:00:00 non-drinker of alcohol (finding) History SDOH 2018-10-26 2018-10-26 [facility] Frequency 00:00:00 00:00:00 [birth year] Universit y of 00:00:00 00:00:00 [facility] Smoking Status Start Date Stop Date Source Unknown if ever smoked [facility] y [facility] Never smoked tobacco [facility] Medications Ordered Filled Start Stop Current Ordering Indication Dosage Frequency Signature Comments Components Source Medication Medication Date Date Medication? Clinician (SIG) Name Name atorvastati Yes 40mg Take 40 mg Univers n 40 mg 6-28 by mouth ity of tablet 15:14: at [place] [address] bedtime. Medical Branch atorvastati Yes 40mg Take 40 mg Univers n 40 mg 6-28 by mouth ity of tablet 15:14: at [place] 02 bedtime. Medical Branch clopidogreL Yes [id number] 75mg Take 1 Univers 75 mg 6-28 tablet by ity of tablet 00:00: mouth [place] 00 daily. Medical Branch clopidogreL Yes [id number] 75mg Take 1 Univers 75 mg 6-28 tablet by ity of tablet 00:00: mouth [place] 00 daily. Medical Branch CARVEDILOL 0 Yes 12.5mg Take 12.5 Univers ORAL 6-03 mg by ity of 10:47: mouth 2 [place] 33 (two) Medical times [place] daily. NIFEdipine 2021-0 Yes 10mg Take 10 mg U nivers 10 mg 6-03 by mouth 3 ity of capsule 10:47: (three) [place] 33 times Medical daily. Branch levETIRAcet 0 Yes 500mg Take 500 U nivers am (KEPPRA) 6-03 mg by ity of 500 mg 10:47: mouth at [place] tablet 33 bedtime. Medical Branch levETIRAcet 0 Yes 250mg Take 250 U nivers am (KEPPRA) 6-03 mg by ity of 250 mg 10:47: mouth [place] tablet 33 every Medical Tuesday, Branch Tuesday and Tuesday. After dialysis CARVEDILOL 0 Yes 12.5mg Take 12.5 Univers ORAL 6-03 mg by ity of 10:47: mouth 2 [place] 33 (two) Medical times [place] daily. NIFEdipine 0 Yes 10mg Take 10 mg U nivers 10 mg 6-03 by mouth 3 ity of capsule 10:47: (three) [place] 33 times Medical daily. Branch levETIRAcet 0 Yes 500mg Take 500 U nivers am (KEPPRA) 6-03 mg by ity of 500 mg 10:47: mouth at [place] tablet 33 bedtime. Medical Branch levETIRAcet 0 Yes 250mg Take 250 U nivers am (KEPPRA) 6-03 mg by ity of 250 mg 10:47: mouth [place] tablet 33 every Medical Tuesday, Branch Tuesday and Tuesday. After dialysis mirtazapine 0 Yes [id number] 15mg Take 1 Univers (REMERON) 6-03 tablet by ity o f 15 mg 00:00: mouth at [place] tablet 00 bedtime. Medical Branch traZODone 0 Yes [id number] 50mg Take 1 Un kecia 50 mg 6-03 tablet by ity of tablet 00:00: mouth at [place] 00 bedtime. Medical Branch mirtazapine 0 Yes [id number] 15mg Take 1 Univers (REMERON) 6-03 tablet by ity o f 15 mg 00:00: mouth at [place] tablet 00 bedtime. Medical Branch traZODone Yes [id number] 50mg Take 1 Un kecia 50 mg 6-03 tablet by ity of tablet 00:00: mouth at [place] 00 bedtime. Medical Branch amoxicillin 0 Yes 500mg Take 500 U nivers 500 mg 5-24 mg by ity of capsule 00:00: mouth. Medical Branch amoxicillin 0 Yes 500mg Take 500 U nivers 500 mg 5-24 mg by ity of capsule 00:00: mouth. Medical Branch hydrALAZINE Yes 50mg Take 50 mg Univers 50 mg 4-08 by mouth. ity of tablet 00:00: Medical Branch hydrALAZINE Yes 50mg Take 50 mg Univers 50 mg 4-08 by mouth. ity of tablet 00:00: [place] [facility] levETIRAcet 2021- No 250mg Take [...] after dialysis TUE/TUE/ I for 60 days. levETIRAcet 2021- No 250mg Take [address] am (KEPPRA) 07-06- tablet [facility] 250 MG 00:00: 23:59 (250 mg Medical tablet 00 :00 total) by Center mouth 3 (three) times a week after dialysis TUE/TUE/ I for 60 days. multivitami Yes 1{tbl} QD Take [address] n with 07-04 tablet by [facility] minerals 14:35: mouth Medical tablet 35 daily. [place] sucroferric Yes 500mg Q.[id number] Take [address] oxyhydroxid 07-04 [id number] mg by L ukes e 500 mg 14:35: 3D mouth 3 Medica l Chew 35 (three) Center times daily. multivitami Yes 1{tbl} QD Take [address] n with 4-02 tablet by [facility] minerals 14:35: mouth Medical tablet 35 daily. Center sucroferric Yes 500mg Q.[id number] Take [address] oxyhydroxid 4-02 [id number] mg by L ukes e 500 mg 14:35: 3D mouth 3 Medica l Chew 35 (three) Center times daily. multivitami Yes 1{tbl} QD Take [address] n with 4-02 tablet by [facility] minerals 14:35: mouth Medical tablet 35 daily. [place] sucroferric Yes 500mg Q.[id number] Take [address] oxyhydroxid 4-02 [id number] mg by L ukes e 500 mg 14:35: 3D mouth 3 Medica l Chew 35 (three) Center times daily. aspirin 81 2021- No 81mg QD Take [address] MG EC 07-04- by mouth [facility]ukes tablet 11:07: 00:00 daily. Medical 35 :00 [place] carvediloL 2021- No 12.5mg Take 12.[address] (COREG) 07-04-02 mg by [facility] 12.5 MG 11:07: 00:00 mouth 2 Medica l tablet 35 :00 (two) Center times daily with breakfast and dinner. atorvastati 2021- No 40mg QD Take [address] [facility] n (LIPITOR) 07-04- by mouth Ned es 40 MG 11:07: 00:00 daily. Medical tablet 35 :00 Center isosorbide 2021- No 30mg QD Take [address] mononitrate 07-04- by mouth Ned es (IMDUR) 30 11:07: 00:00 daily. Medi yoel MG 24 hr 35 :00 Center tablet clopidogreL 2021- No 75mg QD Take [address] [facility] (PLAVIX) 75 07-04- by mouth Ned es mg tablet 11:07: 00:00 daily. Medic al 35 :00 Center NIFEdipine No 60mg QD Take [address] [facility] (PROCARDIA- 07-04-02 by mouth Ned es XL) 60 MG 11:07: 00:00 daily. Medic al (OSM) 24 hr 35 :00 Center tablet hydrALAZINE 2021- No 50mg Q.[id number] Take [address] [facility] (APRESOLINE 07-04- [id number] by mouth 3 [facility] ) 50 MG 11:07: 00:00 3D (three) Medica l tablet 35 :00 times Center daily. lisinopriL No 5mg QD Take [address] (PRINIVIL,Z 07-04 by mouth Ned es ESTRIL) 5 11:07: 00:00 daily. Medic al MG tablet 35 :00 Center aspirin 81 No 81mg QD Take [address] MG EC 07-04 by mouth [facility]ukes tablet 11:07: 00:00 daily. Medical 35 :00 Center carvediloL No 12.5mg Take 12.[address] (COREG) 07-04-02 mg by [facility]ukes 12.5 MG 11:07: 00:00 [...] QD Take [address] (PROCARDIA- 07-04-02 by mouth Ned es XL) 60 MG 11:07: 00:00 daily. Medic al (OSM) 24 hr 35 :00 Center tablet hydrALAZINE 2021- No 50mg Q.[id number] Take [address] [facility] (APRESOLINE 07-04 [id number] by mouth 3 [facility] ) 50 MG [...] :00 Center tablet hydrALAZINE 2021- No 50mg Q.[id number] Take [address] [facility] [address] (APRESOLINE 07-04 [id number] by mouth 3 [facility] ) 50 MG [...] injection (three) times a week at bedtime TUE/TUE/ T for 60 days. levETIRAcet 2021- No [...] Take [address] [facility] n (LIPITOR) - by mouth Luke s 40 MG 13:18: daily. Medical tablet 59 Center isosorbide Yes 30mg QD Take [address] mononitrate -01 by mouth Luke s (IMDUR) 30 13:18: daily. Medic al MG 24 hr 59 Center tablet clopidogreL Yes 75mg QD Take [address] [address] (PLAVIX) 75 -01 by mouth Luke s mg tablet 13:18: daily. Medica l 59 Center NIFEdipine Yes 60mg QD Take [address] (PROCARDIA- 4-01 by mouth Luke s XL) 60 MG 13:18: daily. Medica l (OSM) 24 hr 59 Center tablet hydrALAZINE 0 Yes 50mg Q.[id number] Take [address] [facility] (APRESOLINE 4-01 [id number] by mouth 3 [facility] ) 50 MG [...] MG tablet 59 Center sucroferric Yes 500mg Q.[id number] Take [address] oxyhydroxid 4- [id number] mg by L ukes e 500 mg [...] hr 15 Center tablet hydrALAZINE Yes 50mg Q.[id number] Take [address] [facility] (APRESOLINE 3-30 [id number] by mouth 3 [facility] ) 50 MG [...] tablet 15 Center sucroferric 0 Yes 500mg Q.[id number] Take [address] oxyhydroxid 3-30 [id number] mg by L ukes e 500 mg [...] 15 Center tablet hydrALAZINE 0 Yes 50mg Q.[id number] Take [address] [facility] (APRESOLINE 3-30 [id number] by mouth 3 [facility] ) 50 MG [...] tablet 15 Center sucroferric 0 Yes 500mg Q.[id number] Take [address] oxyhydroxid 3-30 [id number] mg by L ukes e 500 mg [...] 18 Center tablet hydrALAZINE 0 Yes 50mg Q.[id number] Take [address] (APRESOLINE 3-30 [id number] by mouth 3 [facility] ) 50 MG 08:40: 3D (three) Medical tablet 18 times Center daily. multivitami 0 Yes 1{tbl} QD Take [address] n with 3-30 tablet by [facility] minerals 08:40: mouth Medical tablet 18 daily. Center lisinopriL 0 Yes 5mg QD Take [address] (PRINIVIL,Z 3-30 by mouth Luke s ESTRIL) 5 08:40: daily. Medica l MG tablet 18 [place] sucroferric Yes 500mg Q.[id number] Take [address] oxyhydroxid 3-30 [id number] mg by L ukes e 500 mg [...] MG 24 hr 01 Center tablet clopidogreL 2022-0 Yes 75mg QD Take [address] (PLAVIX) 75 3-28 by mouth Luke s mg tablet 14:25: daily. Medica l 01 Center NIFEdipine Yes 60mg QD Take [address] (PROCARDIA- 3-28 by mouth Luke s XL) 60 MG 14:25: daily. Medica l (OSM) 24 hr 01 Center tablet hydrALAZINE Yes 50mg Q.[id number] Take [address] (APRESOLINE 3-28 [id number] by mouth 3 [facility] ) 50 MG [...] MG tablet 01 Center sucroferric Yes 500mg Q.[id number] Take [address] oxyhydroxid 3-28 [id number] mg by L ukes e 500 mg [...] hr 22 Center tablet hydrALAZINE Yes 50mg Q.[id number] Take [address] (APRESOLINE 3-28 [id number] by mouth 3 [facility] ) 50 MG 09:34: 3D (three) Medical tablet 22 times Center daily. multivitami Yes 1{tbl} QD Take [address] n with 3-28 tablet by [facility] minerals 09:34: mouth Medical tablet 22 daily. Center lisinopriL Yes 5mg QD Take [address] (PRINIVIL,Z 3-28 by mouth Luke s ESTRIL) 5 09:34: daily. Medica l MG tablet 22 Center sucroferric Yes 500mg Q.[id number] Take [address] oxyhydroxid 3-28 [id number] mg by L ukes e 500 mg 09:34: 3D mouth 3 Medica l Chew 22 (three) Center times daily. atorvastati Yes 40mg QD Take [address] [facility] n (LIPITOR) 3-25 by mouth Luke s 40 MG 20:31: daily. Medical tablet 49 Center isosorbide Yes 30mg QD Take [address] mononitrate 3-25 by mouth Luke s (IMDUR) 30 20:31: daily. Medic al MG 24 hr 49 Center tablet clopidogreL Yes 75mg QD Take [address] (PLAVIX) 75 3-25 by mouth Luke s mg tablet 20:31: daily. Medica l 49 Center NIFEdipine Yes 60mg QD Take [address] (PROCARDIA- 3-25 by mouth Luke s XL) 60 MG 20:31: daily. Medica l (OSM) 24 hr 49 Center tablet hydrALAZINE Yes 50mg Q.[id number] Take [address] (APRESOLINE 3-25 [id number] by mouth 3 [facility] ) 50 MG 20:31: 3D (three) Medical tablet 49 times Center daily. multivitami Yes 1{tbl} QD Take [address] n with 3-25 tablet by [facility] minerals 20:31: mouth Medical tablet 49 daily. Center lisinopriL Yes 5mg QD Take [address] (PRINIVIL,Z 3-25 by mouth Luke s ESTRIL) 5 20:31: daily. Medica l MG tablet 49 Center sucroferric 0 Yes 500mg Q.[id number] Take [address] oxyhydroxid 3-25 [id number] mg by L ukes e 500 mg 20:31: 3D mouth 3 Medica l Chew 49 (three) Center times daily. isosorbide 0 Yes 30mg QD Take 30 [...] 15 Center tablet hydrALAZINE 0 Yes 50mg Q.[id number] Take [address] (APRESOLINE 3-20 [id number] by mouth 3 [facility] ) 50 MG [...] MG tablet 15 Center sucroferric Yes 500mg Q.[id number] Take [address] oxyhydroxid 3-20 [id number] mg by L ukes e 500 mg [...] MG 24 hr 15 Center tablet clopidogreL 2022-0 Yes 75mg QD Take [address] [facility] (PLAVIX) 75 3-20 by mouth Luke s mg tablet 18:09: daily. Medica l 15 [place] NIFEdipine Yes 60mg QD Take [address] (PROCARDIA- 3-20 by mouth Luke s XL) 60 MG 18:09: daily. Medica l (OSM) 24 hr 15 Center tablet hydrALAZINE Yes 50mg Q.[id number] Take [address] (APRESOLINE 3-20 [id number] by mouth 3 [facility] ) 50 MG 18:09: 3D (three) Medical tablet 15 times Center daily. multivitami Yes 1{tbl} QD Take [address] n with 3-20 tablet by [facility] minerals 18:09: mouth Medical tablet 15 daily. [place] lisinopriL Yes 5mg QD Take [address] (PRINIVIL,Z 3-20 by mouth Luke s ESTRIL) 5 18:09: daily. Medica l MG tablet 15 [place] sucroferric Yes 500mg Q.[id number] Take [address] oxyhydroxid 3-20 [id number] mg by L ukes e 500 mg 18:09: 3D mouth 3 Medica l Chew 15 (three) Center times daily. atorvastati Yes 40mg QD Take [address] n (LIPITOR) 3-20 by mouth Luke s 40 MG 18:09: daily. Medical tablet 15 [place] aspirin 81 Yes 81mg QD Take [address] MG EC 3-07 by mouth [facility]ukes tablet 04:45: daily. [address] carvediloL Yes 12.5mg Take 12.[address] (COREG) 3-07 mg by [facility]ukes 12.5 MG 04:45: mouth 2 Medical tablet 04 (two) Center times daily with breakfast and dinner. aspirin 81 0 Yes 81mg QD Take [address] MG EC 3-07 by mouth [facility]ukes tablet 04:45: daily. [address] carvediloL Yes 12.5mg Take 12.[address] (COREG) 3-07 mg by [facility]ukes 12.5 MG 04:45: mouth 2 Medical tablet 04 (two) Center times daily with breakfast and dinner. aspirin 81 2021-0 Yes 81mg QD Take [address] MG EC 3-07 by mouth [facility]ukes tablet 04:45: daily. [address] carvediloL 2021-0 Yes 12.5mg Take 12.[address] (COREG) 3-07 mg by [facility]ukes 12.5 MG 04:45: mouth 2 Medical tablet 04 (two) Center times daily with breakfast and dinner. aspirin 81 2021-0 Yes 81mg QD Take [address] MG EC 3-07 by mouth [facility]ukes tablet 04:45: daily. [address] carvediloL 0 Yes 12.5mg Take 12.[address] (COREG) 3-07 mg by [facility]ukes 12.5 MG 04:45: mouth 2 Medical tablet 04 (two) Center times daily with breakfast and dinner. aspirin 81 2021-0 Yes 81mg QD Take [address] MG EC 3-07 by mouth [facility]ukes tablet 04:45: daily. [address] carvediloL 0 Yes 12.5mg Take 12.[address] (COREG) 3-07 mg by [facility] 12.5 MG 04:45: mouth 2 Medical tablet 04 (two) Center times daily with breakfast and dinner. aspirin 81 2021-0 Yes 81mg QD Take [address] MG EC 3-07 by mouth [facility] tablet 04:45: daily. [address] carvediloL 0 Yes 12.5mg Take 12.[address] [facility] ([facility]) 3-07 [facility] 12[facility] MG 04:45: mouth 2 Medical tablet 04 (two) Center times daily with breakfast and dinner. aspirin 81 2021-0 Yes 81mg QD Take [address] MG EC 3-07 [facility] tablet 04:45: daily. [address] carvediloL 0 Yes 12.5mg Take 12.[address] [facility] ([facility]) 3-07 [facility] 12.5 MG 04:45: mouth 2 Medical tablet 04 (two) Center times daily with breakfast and dinner. aspirin 81 2021-0 Yes 81mg QD Take [address] MG EC 3-07 by [facility] tablet 04:45: daily. [address] carvediloL 0 Yes 12.5mg Take 12.[address] [facility] ([facility]G) 3-07 mg by [facility] 12.5 MG 04:45: mouth 2 Medical tablet 04 (two) Center times daily with breakfast and dinner. aspirin 81 Yes 81mg QD Take [address] MG EC 3-07 by mouth [facility] tablet 04:45: daily. [facility] 04 Center carvediloL Yes 12.5mg Take 12.[address] [facility] [address] ([facility]G) 3-07 mg by [facility] 12.5 MG 04:45: mouth 2 Medical tablet 04 (two) Center times daily with breakfast and dinner. aspirin 81 2021- No [id number] 81mg Take 1 [facility] mg chewable 05-23 tablet by it y of tablet 00:00: 04:59 mouth [place] 00 :00 daily for Medical 30 days. Branch clopidogreL 2021- No [id number] 75mg Take 1 Univers 75 mg 05-23 tablet by ity of tablet 00:00: 04:59 mouth [place] 00 :00 daily for Medical 30 days. Branch isosorbide 2021- No [id number] 30mg Take 1 Univers mononitrate 05-23 tablet by it y of 30 mg 24 hr 00:00: 04:59 [place] tablet 00 :00 daily for Medical 30 days. Branch lisinopriL 2021- No [id number] 5mg Take 1 Univers 5 mg tablet 05-23 tablet by it y of 00:00: 04:59 mouth [place] 00 :00 daily for Medical 30 days. Branch vitamin b 2021- No [id number] 1{tbl} Take 1 Univers complex-vit 05-23 tablet by it y of miller 00:00: 04:59 mouth [place] c-folic 00 :00 daily for Medical acid 0.8 mg 30 days. Bran ch tablet aspirin 81 2021- No [id number] 81mg Take 1 Univers mg chewable 05-23 tablet by it y of tablet 00:00: 04:59 mouth [place] 00 :00 daily for Medical 30 days. Branch clopidogreL 2021- No [id number] 75mg Take 1 Univers 75 mg 05-23 tablet by ity of tablet 00:00: 04:59 mouth [place] 00 :00 daily for Medical 30 days. Branch isosorbide 2021- No [id number] 30mg Take 1 Univers mononitrate 05-23 tablet by it y of 30 mg 24 hr 00:00: 04:59 [place] tablet 00 :00 daily for Medical 30 days. Branch lisinopriL 2021- No [id number] 5mg Take 1 Univers 5 mg tablet 05-23 tablet by it y of 00:00: 04:59 mouth [place] 00 :00 daily for Medical 30 days. Branch vitamin b 2021- No [id number] 1{tbl} Take 1 Univers complex-vit 05-23 tablet by it y of mliler 00:00: 04:59 mouth [place] c-folic 00 :00 daily for Medical acid 0.8 mg 30 days. Bran ch tablet aspirin 81 2021- No [id number] 81mg Take 1 Univers mg chewable 05-23 tablet by it y of tablet 00:00: 04:59 mouth [place] 00 :00 daily for Medical 30 days. Branch clopidogreL 2021- No [id number] 75mg Take 1 Univers 75 mg 05-23 tablet by ity of tablet 00:00: 04:59 mouth [place] 00 :00 daily for Medical 30 days. Branch isosorbide 2021- No [id number] 30mg Take 1 [facility] mononitrate 05-23 tablet by it y of 30 mg 24 hr 00:00: 04:59 mouth [place] tablet 00 :00 daily for Medical 30 days. Branch lisinopriL 2021- No [id number] 5mg Take 1 Univers 5 mg tablet 05-23 tablet by it y of 00:00: 04:59 mouth [place] 00 :00 daily for Medical 30 days. Branch vitamin b 2021- No [id number] 1{tbl} Take 1 Univers complex-vit 05-23 tablet by it y of miller 00:00: 04:59 mouth [place] c-folic 00 :00 daily for Medical acid 0.8 mg 30 days. Bran ch tablet hydralazine Yes Take by Uni vers HCl 2-18 mouth. ity of (HYDRALAZIN 21:15: [place] E ORAL) 58 Medical Branch sucroferric 0 Yes Take by Uni vers oxyhydroxid 2-18 mouth. ity of e (VELPHORO 21:15: [place] ORAL) 58 Medical Branch hydralazine 0 Yes Take by Uni vers HCl 2-18 mouth. ity of (HYDRALAZIN 21:15: [place] E ORAL) 58 Medical Branch sucroferric 0 Yes Take by Uni vers oxyhydroxid 2-18 mouth. ity of e (VELPHORO 21:15: [place] ORAL) 58 Medical Branch hydralazine 0 Yes Take by Uni vers HCl 2-18 mouth. ity of (HYDRALAZIN 21:15: [place] E ORAL) 58 Medical Branch sucroferric 0 Yes Take by Uni vers oxyhydroxid 2-18 mouth. ity of e (VELPHORO 21:15: [place] ORAL) 58 Medical Branch NIFEDIPINE 0 2021- No Take by Uni vers ORAL 2-18 02-18 mouth. ity of 17:12: 00:00 [place] 42 :00 Medical Branch aspirin 81 0 2021- No 81mg Take 81 mg Univers mg chewable -18 18 by mouth ity of tablet 17:12: 00:00 daily. [place] 42 :00 Medical Branch nitroglycer [id number] 1 Univers in 0.4 mg 2-18 tablet ity of sublingual 00:00: under the [place] tablet 00 tongue Medical every 5 Branch (five) minutes as needed for Chest pain. nitroglycer [id number] 1 Univers in 0.4 mg 2-18 tablet ity of sublingual 00:00: under the [place] tablet 00 tongue Medical every 5 Branch (five) minutes as needed for Chest pain. nitroglycer [id number] 1 Univers in 0.4 mg 2-18 tablet ity of sublingual 00:00: under the [place] tablet 00 tongue Medical every 5 Branch (five) minutes as needed for Chest pain. atorvastati 0 2021- No [id number] 40mg Take 1 Univers n 40 mg 2-18 03-21 tablet by ity of tablet 00:00: 04:59 mouth at [place] 00 :00 bedtime Medical for 30 Branch days. carvediloL 2021- No [id number] 6.25mg Take 1 Univers 6.25 mg 2-18 -21 tablet by ity of tablet 00:00: 04:59 mouth 2 [place] 00 :00 (two) Medical times Branch daily with meals for 30 days. NIFEdipine 2021- No [id number] 60mg Take 1 Univers ER 60 mg 2-18 -21 tablet by ity o f tablet 00:00: 04:59 mouth 2 [place] 00 :00 ([facility]) Medical times Branch daily for 30 days. atorvastati 2021- No [id number] 40mg Take 1 Univers n 40 mg 2-18 -21 tablet by ity of tablet 00:00: 04:59 mouth at [place] 00 :00 bedtime Medical for 30 Branch days. carvediloL 2021- No [id number] 6.25mg Take 1 Univers 6.25 mg 2-18 -21 tablet by ity of tablet 00:00: 04:59 mouth 2 [place] 00 :00 ([facility]) Medical times Branch daily with meals for 30 days. NIFEdipine 2021- No [id number] 60mg Take 1 Univers ER 60 mg 2-18 - tablet by ity o f tablet 00:00: 04:59 mouth 2 [place] 00 :00 ([facility]) Medical times Branch daily for 30 days. atorvastati 2021- No [id number] 40mg Take 1 Univers n 40 mg 2-18 -21 tablet by ity of tablet 00:00: 04:59 mouth at [place] 00 :00 bedtime Medical for 30 Branch days. carvediloL 2021- No [id number] 6.25mg Take 1 Univers 6.25 mg 2-18 -21 tablet by ity of tablet 00:00: 04:59 mouth 2 [place] 00 :00 (two) Medical times Branch daily with meals for 30 days. NIFEdipine 2021- No [id number] 60mg Take 1 Univers ER 60 mg 2-18 -21 tablet by ity o f tablet 00:00: 04:59 mouth 2 [place] 00 :00 (two) Medical times Branch daily for 30 days. clopidogreL Yes 75mg 75 mg, Univ ers (PLAVIX) 2-17 Oral, ity of tablet 75 15:00: DAILY, [place] mg 00 First dose Medical (after Branch last modificati on) on [facility] 05/21/21 at 0900, Until Discontinu ed, Routine morpHINE 2021- No 2mg 2 mg, Slow Un kecia injection 2 05-21 IV Push, ity of mg 13:30: 12:29 ONCE, 1 [place] 00 :00 dose, On Medical [facility] Branch 05/21/21 at 0730, Routine HYDROcodone 2021- No 1{tbl} 1 tablet, Univers -acetaminop 05-21 Oral, ity of hen (NORCO 01:00: 00:17 ONCE, 1 [place] as 5) 5-325 mg 00 :00 dose, On Medi yoel tablet 1 Tue Branch tablet 05/20/21 at 1900, Routine isosorbide Yes 30mg 30 mg, Unive rs mononitrate 2-16 Oral, ity of (IMDUR) 24 15:00: DAILY, [place] hr tablet 00 First dose Medi yoel 30 mg on Tue Branch 05/20/21 at 0900, Until Discontinu ed, Routine vitamin b Yes [id number] 1{tbl} 1 tablet, Univers complex-vit 2-16 Oral, ity of miller 15:00: DAILY, [place] c-folic 00 First dose Medica l acid on Tue Branch (NEPHRO-VIT 05/20/21 at E) 0.8 mg 0900, tablet 1 Until tablet Discontinu ed, Routine clopidogreL 2021- No 75mg 75 mg, Uni vers (PLAVIX) 216 -16 Oral, ity of tablet 75 15:00: 15:04 DAILY, [place] mg 00 :38 First dose Medical on Tue Branch 05/20/21 at 0900, Until Discontinu ed, Routine atorvastati Yes [id number] 40mg 40 mg, Univers n (LIPITOR) 2-16 Oral, QHS, it y of tablet 40 03:00: First dose [place] mg 00 on [facility] 05/19/21 at Branch 2100, Until Discontinu ed, Routine NIFEdipine 0 Yes [id number] 60mg 60 mg, U nivers ER tablet 2-16 Oral, BID, ity of 60 mg 02:00: First dose [place] 00 (after Medical last Branch modificati on) on Tue05/19/21 at 2000, Until Discontinu ed, Routine lisinopriL 0 Yes [id number] 5mg 5 mg, Un kecia (PRINIVIL,Z 2-15 Oral, ity of ESTRIL) 20:45: DAILY, [place] tablet 5 mg 00 First dose Me dical on Tue Branch 05/19/21 at 1445, Until Discontinu ed, Routine traMADoL 0 Yes 50mg 50 mg, Univers (ULTRAM) 2-12 Oral, ity of tablet 50 21:59: Q6HPRN, [place] mg 37 Starting Medical on [facility] 05/16/21 at 1559, Until Discontinu ed, Routine, Pain (scale 4-6) aspirin 0 Yes 81mg 81 mg, Univers chewable 2-12 Oral, ity of tablet 81 15:00: DAILY, [place] mg 00 First dose Medical on [facility] Branch 05/16/21 at 0900, Until Discontinu ed, Routine NIFEdipine 2021- No 60mg 60 mg, Univ ers ER tablet 2-12 02-15 Oral, ity of 60 mg 15:00: 20:33 DAILY, [place] 00 :49 First dose Medical on [facility] 05/16/21 at 0900, Until Discontinu ed, Routine Sliding 0 Yes Subcutaneo Univ ers Scale 2-12 us, AC, ity of Insulin-Reg 13:30: First dose [place] ular + Fsbg 00 on [facility] Medica l Testing 05/16/21 at Branch [...] [place] 5[place]000 Units 00 us, Q8H, [facility] First dose Branch on Tue05/15/21 at 2200, Until Discontinu ed, Routine carvediloL 0 Yes 6.25mg 6.25 mg, U nivers (COREG) 2-12 Oral, BID ity of tablet 6.25 01:00: MEALS, [place] mg 00 First dose Medical on Fri Branch 05/15/21 at 1900, Until Discontinu ed, Routine
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 Restricted medication : NEIL THOMAS aspirin 0 2021- No 325mg 325 mg, [...] IV Push, ity of (PF)) 00:56: Q6HPRN, [place] injection 4 53 Starting Medi yoel mg on Fri Branch 05/15/21 at 1856, Until Discontinu ed, Routine, Nausea and Vomiting (N/V) acetaminoph Yes 650mg 650 mg, Un kecia en 2-12 Oral, ity of (TYLENOL) 00:56: Q6HPRN, [place] tablet 650 38 Starting Medic al mg on Fri Branch 05/15/21 at 1856, Until Discontinu ed, Routine, Pain (scale 1-3), Temp > 38.5 C ondansetron 2021- No 4mg 4 mg, Slow Univers [...] 05/15/21 at 1730, STAT iopamidol 2021- No [id number] 100mL 100 mL, Univers (ISOVUE 05-15 Intravenou ity o f 370-500 mL) 22:00: 22:00 s, ONCE, 1 [place] injection 00 :00 dose, On Medica l 100 mL Fri Branch 05/15/21 at 1600, Routine aspirin 81 Yes 81mg QD Take [address] MG EC 5-27 by mouth [facility] tablet 15:07: daily. [address] carvediloL Yes 12.5mg Take 12.[address] [facility] [address] ([facility]G) 5-27 mg by [facility] 12.5 MG 15:07: mouth 2 Medical tablet 20 (two) Center times daily with breakfast and dinner. aspirin 81 0 Yes 81mg QD Take [address] MG EC 5-27 by mouth [facility] tablet 15:07: daily. [address] carvediloL Yes 12.5mg Take 12.5 [facility] [...] a e 1-17 l 19:15: ergocalcife Yes [id number] Q7D Take Meth ale rol 7-25 50,000 [...] hr 42 l tablet ergocalcife 2019-0 Yes [id number] Q7D Take Meth ale rol 7-25 50,000 [...] hr 42 l tablet ergocalcife 2019-0 Yes [id number] Q7D Take Meth ale rol 7-25 50,000 [...] hr 42 l tablet ergocalcife 2019-0 Yes [id number] Q7D Take Meth ale rol 7-25 50,000 [...] Hospita 42 times a l day. atorvastati [id number] Yes 40mg QD Take 40 mg Methodi n (LIPITOR) 7-[address] 40 MG 15:19: daily. Hospita tablet 42 l pantoprazol 0 Yes 40mg QD Take 40 mg Methodi e 7-[address] (PROTONIX) 15:19: daily. Hospi ta 40 MG EC 42 l tablet isosorbide 0 Yes 30mg QD Take 30 mg M ethodi mononitrate 7-[address] (IMDUR) 30 15:19: daily. Hospi ta MG 24 hr 42 l tablet ergocalcife 2019-0 Yes [id number] Q7D Take Meth ale rol 7-25 50,000 [address] (VITAMIN 15:19: Units by Hospi ta D2) 50,000 42 mouth once l unit a week. capsule multivitami 2019-0 Yes 1{tbl} QD Take 1 Me thodi n 7-[address] (DAILY-LARON 15:19: mouth Hospi ta ORAL) 42 daily. l ergocalcife 2019-0 Yes [id number] Q7D Take Meth ale rol 7-25 50,000 [...] Hospita tablet 42 l ergocalcife 2019-0 Yes [id number] Q7D Take Meth ale rol 7-25 50,000 [...] hr 42 l tablet ergocalcife 2019-0 Yes [id number] Q7D Take Meth ale rol 7-25 50,000 [...] hr 42 l tablet ergocalcife 2019-0 Yes [id number] Q7D Take Meth ale rol 7-25 50,000 [...] hr 42 l tablet ergocalcife 2019-0 Yes [id number] Q7D Take Meth ale rol 7-25 50,000 [...] hr 42 l tablet ergocalcife 2019-0 Yes [id number] Q7D Take Meth ale rol 7-25 50,000 [...] hr 42 l tablet ergocalcife 2019-0 Yes [id number] Q7D Take Meth ale rol 7-25 50,000 [...] hr 42 l tablet ergocalcife 2019-0 Yes [id number] Q7D Take Meth ale rol 7-25 50,000 [...] a 25 mg 00 l tablet metOLazone Yes TK 1 T PO Me thodi (ZAROXOLYN) 7-[address] 5 MG tablet 00:00: Hospit a 00 l metoprolol Yes TK 1 T PO Me thodi tartrate 7-[address] (LOPRESSOR) 00:00: Hospit a 25 mg 00 l tablet metOLazone Yes TK 1 T PO Me thodi (ZAROXOLYN) 7-[address] 5 MG tablet 00:00: Hospit a 00 l metoprolol Yes TK 1 T PO Me thodi tartrate 7-[address] (LOPRESSOR) 00:00: Hospit a 25 mg 00 l tablet metOLazone Yes TK 1 T PO Me thodi (ZAROXOLYN) 7-[address] 5 MG tablet 00:00: Hospit a 00 l metoprolol Yes TK 1 T PO Me thodi tartrate 7-[address] (LOPRESSOR) 00:00: Hospit a 25 mg 00 l tablet metOLazone Yes TK 1 T PO Me thodi (ZAROXOLYN) 7-[address] 5 MG tablet 00:00: Hospit a 00 l metoprolol Yes TK 1 T PO Me thodi tartrate 7-[address] (LOPRESSOR) 00:00: Hospit a 25 mg 00 l tablet metOLazone Yes TK 1 T PO Me thodi (ZAROXOLYN) 7-[address] 5 MG tablet 00:00: Hospit a 00 l metoprolol Yes TK 1 T PO Me thodi tartrate 7-[address] (LOPRESSOR) 00:00: Hospit a 25 mg 00 l tablet metOLazone Yes TK 1 T PO Me thodi (ZAROXOLYN) 7-[address] 5 MG tablet 00:00: Hospit a 00 l metOLazone Yes TK 1 T PO Me thodi (ZAROXOLYN) 7-[address] 5 MG tablet 00:00: Hospit a 00 l metoprolol Yes TK 1 T PO Me thodi tartrate 7-[address] (LOPRESSOR) 00:00: Hospit a 25 mg 00 l tablet metoprolol Yes TK 1 T PO Me [...] mg tablet 00:00: Hospita 00 l aspirin 2018- Yes Methodi (ECOTRIN) 7-10 st 81 MG 00:00: Hospita enteric 00 l coated tablet furosemide 2018- Yes Take by Meth ale (LASIX) 40 7-[address] mg tablet 00:00: Hospita 00 l Atorvastati 2018-0 Yes Memori a n Calcium 7-09 l 10:23: Lisinopril 2018-0 Yes Memoria 7-09 l 10:23: Doxazosin 2018-0 Yes TWICE Memoria 7-09 DAILY l 00:00: Folic 2019-0 Yes DAILY Memoria Acid/Vit B 7-09 l Complex And 00:00: Freddy wayne C Hydralazine 2018-0 Yes Q8H Memori a Hcl 7-09 l 00:00: Lactulose 2018-0 Yes DAILY PRN Mem oria 7-09 For l 00:00: Constipati on Lanthanum 2018-0 Yes THREE Memoria Carbonate 7-09 TIMES A l 00:00: DAY Atorvastati 2019-0 Yes AT BEDTIME Memoria n Calcium 7-09 [...] 7-09 TIMES A l 00:00: DAY NIFEdipine 2019-0 Yes 1{tbl} Take 1 Met [...] Yes Take by Metho di 1,000 mg - mouth. st powder in 00:00: Hospita packet [...] Immunizations Ordered Filled Immunization Date Status Comments Sourc e Immunization Name Name Influenza High Dose 2021-02-02 Completed Unive rsity of 00:00:00 [facility] Influenza High Dose 2021-02-02 Completed Unive rsity of 00:00:00 [facility] SARS-COV-2 COVID-19 2020-07-30 Completed Unive rsity of PFIZER VACCINE 00:00:00 [facility] SARS-COV-2 COVID-19 2020-07-30 Completed Unive rsity of PFIZER VACCINE 00:00:00 [facility] SARS-COV-2 COVID-19 2020-07-11 Completed Unive rsity of PFIZER VACCINE 00:00:00 [facility] SARS-COV-2 COVID-19 2020-07-11 Completed Unive rsity of PFIZER VACCINE 00:00:00 [facility] PPD (TB) 2018-03-20 Completed University of 00:00:00 [facility] PPD (TB) 2018-03-20 Completed University of 00:00:00 [facility] Influenza Virus 2018-01-20 Completed Universit y of Vaccine - Whole 00:00:00 [facility] Influenza Virus 2018-01-20 Completed Universit y of Vaccine - Whole 00:00:00 [facility] Pneumococcal 2014-08-02 Completed University o f Polysaccharide, 00:00:00 [facility] PPSV23 (PNEUMOVAX) Branch Pneumococcal 2014-08-02 Completed University o f Polysaccharide, 00:00:00 [facility] PPSV23 (PNEUMOVAX) Branch Vital Signs Vital Name [...] 2021-05-23 01:40:00 126 mm[Hg] Univer sity of [facility] Diastolic blood 2021-05-23 01:40:00 46 mm[Hg] Unive rsity [facility] Heart rate 2021-05-23 01:40:00 62 /min [facility] Body temperature 2021-05-23 01:40:00 35.67 [facility]ya [facility] Respiratory rate 2021-05-23 01:40:00 16 /[facility] weight 2021-05-23 01:40:00 67.3 kg [facility] BMI 2021-05-23 01:40:00 26.28 kg/m2 [facility] Oxygen saturation in 2021-05-22 17:16:00 93 /min [facility] Arterial blood by [facility] Pulse oximetry Branch Body height 2021-05-19 19:34:00 160 cm [facility] Systolic blood 2021-07-04 08:10:00 149 mm[Hg] [facility] Diastolic blood 2021-07-04 08:10:00 65 mm[Hg] [facility] Heart rate 2021-07-04 08:10:00 71 /min [facility] Body temperature 2021-07-04 08:10:00 36.22 Priya [facility] Respiratory rate 2021-07-04 08:10:00 18 /min [facility] Oxygen saturation in 2021-07-04 08:10:00 93 /min [facility] Arterial blood by Medical Ce nter Pulse oximetry Systolic blood 2021-07-03 14:23:00 123 mm[Hg] [facility] Diastolic blood 2021-07-03 14:23:00 60 mm[Hg] [facility] Heart rate 2021-07-03 14:23:00 70 /min [facility] Body temperature 2021-07-03 14:23:00 35.94 Priya [facility] Respiratory rate 2021-07-03 14:23:00 18 /min [facility] Oxygen saturation in 2021-07-03 14:23:00 97 /min [facility] Arterial blood by Medical Ce nter Pulse oximetry Body weight 2021-07-03 13:00:00 60.4 kg [facility] BMI 2021-07-03 13:00:00 23.59 kg/m2 [facility] Systolic blood 2021-07-03 08:18:00 156 mm[Hg] [facility] Diastolic blood 2021-07-03 08:18:00 67 mm[Hg] [facility] Heart rate 2021-07-03 08:18:00 68 /min [facility] Body temperature 2021-07-03 08:18:00 36.22 Priya [facility] Respiratory rate 2021-07-03 08:18:00 20 /min [facility] Oxygen saturation in 2021-07-03 08:18:00 94 /min [facility] Arterial blood by Medical Ce nter Pulse oximetry Heart rate 2021-07-02 10:00:00 72 /min [facility] Systolic blood 2021-07-02 08:00:00 171 mm[Hg] [facility] Diastolic blood 2021-07-02 08:00:00 78 mm[Hg] [facility] Body temperature 2021-07-02 08:00:00 36.56 Priya [facility] Respiratory rate 2021-07-02 08:00:00 20 /min [facility] Oxygen saturation in 2021-07-02 08:00:00 94 /min [facility] Arterial blood by Medical Ce nter Pulse oximetry Body weight 2021-07-02 04:21:00 62.37 kg [facility] BMI 2021-07-02 04:21:00 24.36 kg/m2 [facility] Systolic blood 2021-07-01 09:15:00 167 mm[Hg] [facility] Diastolic blood 2021-07-01 09:15:00 71 mm[Hg] [facility] Heart rate 2021-07-01 09:15:00 71 /min [facility] Respiratory rate 2021-07-01 09:15:00 14 /min [facility] Oxygen saturation in 2021-07-01 09:15:00 96 /min [facility] Arterial blood by Medical Ce nter Pulse oximetry Body temperature 2021-07-01 09:00:00 36.44 Priya [facility] Systolic blood 2021-06-29 14:24:00 169 mm[Hg] [facility] Diastolic blood 2021-06-29 14:24:00 71 mm[Hg] [facility] Heart rate 2021-06-29 14:24:00 70 /min [facility] Body temperature 2021-06-29 14:24:00 36.67 Priya [facility] Respiratory rate 2021-06-29 14:24:00 20 /min [facility] Oxygen saturation in 2021-06-29 14:24:00 98 /min [facility] Arterial blood by Medical Ce nter Pulse oximetry Systolic blood 2021-06-29 07:46:00 133 mm[Hg] [facility] Diastolic blood 2021-06-29 07:46:00 63 mm[Hg] [facility] Heart rate 2021-06-29 07:46:00 70 /min [facility] Body temperature 2021-06-29 07:46:00 36.44 Priya [facility] Respiratory rate 2021-06-29 07:46:00 20 /min [facility] Oxygen saturation in 2021-06-29 07:46:00 97 /min [facility] Arterial blood by Medical Ce nter Pulse oximetry Systolic blood 2021-06-26 10:15:00 169 mm[Hg] [facility] Diastolic blood 2021-06-26 10:15:00 66 mm[Hg] [facility] Heart rate 2021-06-26 10:15:00 71 /min [facility] Body temperature 2021-06-26 10:15:00 36.56 Priya [facility] Respiratory rate 2021-06-26 10:15:00 16 /min [facility] Oxygen saturation in 2021-06-26 10:15:00 99 /min [facility] Arterial blood by Medical Ce nter Pulse oximetry Systolic blood 2021-06-26 08:15:00 128 mm[Hg] [facility] Diastolic blood 2021-06-26 08:15:00 53 mm[Hg] [facility] Heart rate 2021-06-26 08:15:00 70 /min [facility] Body temperature 2021-06-26 08:15:00 36.5 Priya [facility] Respiratory rate 2021-06-26 08:15:00 9 /min [facility] Oxygen saturation in 2021-06-26 08:15:00 97 /min [facility] Arterial blood by Medical Ce nter Pulse oximetry Body weight 2021-06-25 00:00:00 64.5 kg [facility] BMI 2021-06-25 00:00:00 25.19 kg/m2 [facility] Body height 2021-06-13 11:09:00 160 cm [facility] Body height 2020-07-24 16:34:00 160 cm [facility] Body weight 2020-07-24 16:34:00 67 kg [facility] BMI 2020-07-24 16:34:00 26.17 kg/m2 [facility] Temperature Oral (F) 2019-02-19 22:00:00 98.3 F [facility] Heart Rate 2019-02-19 22:00:00 [facility] [place] Respitory Rate 2019-02-19 22:00:00 [facility] [place] Systolic (mm Hg) 2019-02-19 22:00:00 [place]on rial [place] Diastolic (mm Hg) 2019-02-19 22:00:00 Mem orial [place] Height 2019-02-19 11:49:00 [facility] [place] Weight 2019-02-19 11:49:00 [facility] [place] Height 2019-01-26 05:47:00 [facility] Heart Rate 2019-01-26 05:47:00 [facility] [place] Respitory Rate 2019-01-26 05:47:00 [facility] [place] Systolic (mm Hg) 2019-01-26 05:47:00 [place] rial [place] Diastolic (mm Hg) 2019-01-26 05:47:00 Mem orial [place] Temperature Oral (F) 2019-01-26 05:19:00 101.3 F [facility] Weight 2019-01-26 01:51:00 [facility] Heart Rate 2018-10-11 20:05:00 [facility] [place] Systolic (mm Hg) 2018-10-11 20:05:00 [place] rial [place] Diastolic (mm Hg) 2018-10-11 20:05:00 Mem orial [place] Temperature Oral (F) 2018-10-11 20:00:00 98.1 F [facility] Respitory Rate 2018-10-11 20:00:00 [facility] [place] Height 2018-10-10 13:16:00 [facility] Weight 2018-10-10 13:16:00 [facility] Procedures Procedure Date / Time Performing Clinician Source Performed EXTERNAL PROVIDER - ADC 2021-10-21 05:01:00 Doctor Unassigned, N o [facility] [place] ARRYTHMIA IMPLANT REPORT 2021-07-06 00:00:00 Provider, Default Tyrel ALEGRIA [facility] POCT-GLUCOSE METER 2021-07-04 08:33:00 Logan Russo [facility] CBC (HEMOGRAM ONLY) 2021-07-04 04:37:[address] [facility] BASIC METABOLIC PANEL (7) 2021-07-04 04:37:00 Dillon Ricardo [facility] MAGNESIUM 2021-07-04 04:37:[address] [facility] PHOSPHORUS 2021-07-04 04:37:[address] [facility] XR CHEST 1 VIEW PORTABLE 2021-07-04 04:30:00 Martinez Ricardo [facility] / BEDSIDE [facility] POCT-GLUCOSE METER 2021-07-03 21:18:00 RussoLogan [facility] POCT-GLUCOSE METER 2021-07-03 17:40:00 Logan Russo [facility] SARS-COV2/RT-PCR (LOWER UMPQUA [facility] & 2021-07-03 17:24:00 [facility] POCT-GLUCOSE METER 2021-07-03 16:06:00 Logan Russo [facility] REPORT OF PROCEDURE - 2021-07-03 15:34:23 AmpastoratAngela croft [facility] ENDOSCOPY URL [facility] COLONOSCOPY 2021-07-03 15:05:00 AmaratAngela croft [facility] TISSUE EXAM 2021-07-03 15:04:00 AmAngela smith [facility] COLONOSCOPY,POLYPECTOMY 2021-07-03 14:39:00 AmaratRowan croft [facility] COLONOSCOPY 2021-07-03 14:00:00 AmAngela smith [facility] POCT-GLUCOSE METER 2021-07-03 13:31:00 RussoLogan del cid [facility] COLONOSCOPY 2021-07-03 13:00:00 Angela Loco [facility] HEMODIALYSIS INPATIENT 2021-07-03 10:32:50 Jersey CostelloWilner [facility] POCT-GLUCOSE METER 2021-07-03 08:44:00 RussoLogan [facility] XR CHEST 1 VIEW PORTABLE 2021-07-03 05:24:00 Martinez Ricardo [facility] CBC (HEMOGRAM ONLY) 2021-07-03 03:08:00 [facility]IC METABOLIC PANEL (7) 2021-07-03 03:08:[address] [facility] MAGNESIUM 2021-07-03 03:08:00 [facility] 2021-07-03 03:08:00 [facility] POCT-GLUCOSE METER 2021-07-02 21:26:00 RussoLogan [facility] POCT-GLUCOSE METER 2021-07-02 17:49:00 RussoLogan [facility] POCT-GLUCOSE METER 2021-07-02 12:48:00 RussoLogan [facility] POCT-GLUCOSE METER 2021-07-02 08:33:00 RussoLogan [facility] XR CHEST 1 VIEW PORTABLE 2021-07-02 06:45:00 Martinez Ricardo [facility] CBC (HEMOGRAM ONLY) 2021-07-02 05:29:00 [facility]OLIC PANEL (7) 2021-07-02 05:29:[address] [facility] MAGNESIUM 2021-07-02 05:29:00 [facility] 2021-07-02 05:29:[address] [facility] POCT-GLUCOSE METER 2021-07-01 21:45:00 RussoLogan [facility] POCT-GLUCOSE METER 2021-07-01 17:44:00 RussoLogan [facility] POCT-GLUCOSE METER 2021-07-01 13:26:00 Logan Russo [facility] HEMODIALYSIS INPATIENT 2021-07-01 12:51:00 Wilner Aponte [facility] HEMODIALYSIS INPATIENT 2021-07-01 09:16:58 Wilner Aponte [facility] POCT-GLUCOSE METER 2021-07-01 08:31:00 RussoLogan del cid [facility] XR CHEST 1 VIEW PORTABLE 2021-07-01 05:38:00 Davion [facility] / BEDSIDE [facility] CBC (HEMOGRAM ONLY) 2021-07-01 05:15:[address] [facility] BASIC METABOLIC PANEL (7) 2021-07-01 05:15:[address] [facility] MAGNESIUM 2021-07-01 05:15:00 Davion [facility] PHOSPHORUS 2021-07-01 05:15:00 Davion [facility] POCT-GLUCOSE METER 2021-06-30 21:03:00 Logan Russo [facility] VENOGRAM 2021-06-30 18:06:00 Krzysztof Dodd [facility] POCT-GLUCOSE METER 2021-06-30 17:27:00 RussoLogan [facility] XR ABDOMEN / KUB 1 VIEW 2021-06-30 17:21:00 oRwan Loco [facility] POCT-GLUCOSE METER 2021-06-30 12:24:00 RussoLogan [facility] POCT-GLUCOSE METER 2021-06-30 08:15:00 RussoLogan [facility] CBC (HEMOGRAM ONLY) 2021-06-30 04:40:[address] [facility] BASIC METABOLIC PANEL (7) 2021-06-30 04:40:[address] [facility] MAGNESIUM 2021-06-30 04:40:[address] [facility] PHOSPHORUS 2021-06-30 04:40:[address] [facility] XR CHEST 1 VIEW PORTABLE 2021-06-30 03:46:[facility] LEUKO-REDUCED RBC 2021-06-29 23:54:[address] [facility] POCT-GLUCOSE METER 2021-06-29 21:53:00 RussoLogan [facility] POCT-GLUCOSE METER 2021-06-29 17:44:00 RussoLogan [facility] POCT-GLUCOSE METER 2021-06-29 14:20:00 RussoLogan [facility] HEMODIALYSIS INPATIENT 2021-06-29 13:25:00 Bertrand Bueno [facility] POCT-GLUCOSE METER 2021-06-29 08:39:00 RussoLogan [facility] XR CHEST 1 VIEW PORTABLE 2021-06-29 05:20:00 Martinez Riacrdo [facility] CBC (HEMOGRAM ONLY) 2021-06-29 04:49:[address] [facility] BASIC METABOLIC PANEL (7) 2021-06-29 04:49:[address] [facility] MAGNESIUM 2021-06-29 04:49:00 [facility] 2021-06-29 04:49:00 [facility] POCT-GLUCOSE METER 2021-06-28 19:42:00 RussoLogan [facility] POCT-GLUCOSE METER 2021-06-28 17:22:00 Logan Russo [facility] CBC W/PLT COUNT & AUTO 2021-06-28 15:23:00 Niki [facility] CBC W/PLT COUNT & AUTO 2021-06-28 15:23:00 Niki [facility] POCT-GLUCOSE METER 2021-06-28 12:31:00 Logna Russo [facility] TRANSFUSE LEUKO-REDUCED 2021-06-28 11:03:00 [facility] RED BLOOD CELLS [facility] PREPARE LEUKO-REDUCED RBC 2021-06-28 10:49:[address] [facility] POCT-GLUCOSE METER 2021-06-28 08:32:00 Logan Russo [facility] XR CHEST 1 VIEW PORTABLE 2021-06-28 04:23:00 Martinez [facility] CBC (HEMOGRAM ONLY) 2021-06-28 04:05:[address] [facility] BASIC METABOLIC PANEL (7) 2021-06-28 04:05:[address] [facility] MAGNESIUM 2021-06-28 04:05:[address] [facility] PHOSPHORUS 2021-06-28 04:05:00 [facility]ARE LEUKO-REDUCED RBC 2021-06-27 23:54:[address] [facility] POCT-GLUCOSE METER 2021-06-27 21:27:00 Logan Russo [facility] POCT-GLUCOSE METER 2021-06-27 17:51:00 Logan Russo [facility] POCT-GLUCOSE METER 2021-06-27 15:02:00 Logan Russo [facility] POCT-GLUCOSE METER 2021-06-27 12:08:00 Logan Russo [facility] POCT-GLUCOSE METER 2021-06-27 08:23:00 Russo, Logan Vaca [facility] SARS-COV2/RT-PCR ([facility] & 2021-06-27 04:13:00 Martinez [facility] REF LABS) [facility] CBC (HEMOGRAM ONLY) 2021-06-27 04:08:[address] [facility] BASIC METABOLIC PANEL (7) 2021-06-27 04:08:00 Dillon Ricardo [facility] MAGNESIUM 2021-06-27 04:08:[address] [facility] PHOSPHORUS 2021-06-27 04:08:00 Davion [facility] APTT 2021-06-27 04:08:00 Abel Hernandez [facility] PROTHROMBIN TIME/INR 2021-06-27 04:08:00 MaryAbel hernandez [facility] XR CHEST 1 VIEW PORTABLE 2021-06-27 03:58:00 Martinez [facility] POCT-GLUCOSE METER 2021-06-26 20:59:00 Russo, Logan Vaca [facility] HEMODIALYSIS INPATIENT 2021-06-26 19:13:00 Wilner Aponte [facility] POCT-GLUCOSE METER 2021-06-26 18:55:00 Russo, Logan Vaca [facility] HEMOGLOBIN AND HEMATOCRIT 2021-06-26 11:31:00 Dannielle Erwin [facility] POCT-GLUCOSE METER 2021-06-26 11:15:00 Russo, Logan Vaca [facility] POCT-GLUCOSE METER 2021-06-26 09:16:00 Russo, Logan Vaca [facility] LASER EXTRACTION,LEAD 2021-06-26 07:30:00 Krzysztof Dodd [facility] TRANSFUSE LEUKO-REDUCED 2021-06-26 06:15:00 Martinez Ricardo [facility] RED BLOOD CELLS [facility] PREPARE LEUKO-REDUCED RBC 2021-06-26 06:01:[address] [facility] CBC (HEMOGRAM ONLY) 2021-06-26 03:25:[address] [facility] BASIC METABOLIC PANEL (7) 2021-06-26 03:25:[address] [facility] MAGNESIUM 2021-06-26 03:25:[address] [facility] PHOSPHORUS 2021-06-26 03:25:00 Davion [facility] APTT 2021-06-26 03:25:00 Abel Hernandez [facility] PROTHROMBIN TIME/INR 2021-06-26 03:25:00 Mary Abel [facility] XR CHEST 1 VIEW PORTABLE 2021-06-26 01:25:00 Martinez Ricardo [facility] POCT-GLUCOSE METER 2021-06-25 21:46:00 Logan Russo [facility] TYPE AND SCREEN, 2021-06-25 18:55:00 Krzysztof Dodd [facility] IR TUNNELED CATHETER 2021-06-25 17:45:[address] [facility] POCT-GLUCOSE METER 2021-06-25 11:18:00 Logan Russo [facility] ECG 12-LEAD 2021-06-25 09:57:06 Unknown, Hl7 [facility] ECG 12-LEAD 2021-06-25 09:57:06 Unknown, Hl7 [facility] ECG 12-LEAD 2021-06-25 09:56:17 Unknown, Hl7 [facility] CBC (HEMOGRAM ONLY) 2021-06-25 02:56:[address] [facility] BASIC METABOLIC PANEL (7) 2021-06-25 02:56:[address] [facility] MAGNESIUM 2021-06-25 02:56:[address] [facility] PHOSPHORUS 2021-06-25 02:56:[address] [facility] APTT 2021-06-25 02:56:00 MaryAbel hernandez [facility] PROTHROMBIN TIME/INR 2021-06-25 02:56:00 MaryAbel hernandez [facility] XR CHEST 1 VIEW PORTABLE 2021-06-25 02:31:00 Martinez Ricardo [facility] POCT-GLUCOSE METER 2021-06-24 22:02:00 Logan Russo [facility] XR ABDOMEN / KUB 1 VIEW 2021-06-24 18:29:00 Gurinder Nash [facility] POCT-GLUCOSE METER 2021-06-24 16:07:00 Logan Russo [facility] POCT-GLUCOSE METER 2021-06-24 12:26:00 Logan Russo [facility] HEMODIALYSIS INPATIENT 2021-06-24 11:25:03 Wilner Aponte [facility] POCT-GLUCOSE METER 2021-06-24 08:28:00 Logan Russo [facility] CBC (HEMOGRAM ONLY) 2021-06-24 03:01:[address] [facility] BASIC METABOLIC PANEL (7) 2021-06-24 03:01:[address] [facility] MAGNESIUM 2021-06-24 03:01:[address] [facility] PHOSPHORUS 2021-06-24 03:01:[address] [facility] APTT 2021-06-24 03:01:00 Abel Hernandez [facility] PROTHROMBIN TIME/INR 2021-06-24 03:01:00 MaryAbel hernandez [facility] XR CHEST 1 VIEW PORTABLE 2021-06-24 00:32:00 Martinez Ricardo [facility] POCT-GLUCOSE METER 2021-06-23 20:56:00 RussoLogan [facility] POCT-GLUCOSE METER 2021-06-23 16:10:00 Logan Russo [facility] BASIC METABOLIC PANEL (7) 2021-06-23 12:59:00 Omaira Manzo [facility] POCT-GLUCOSE METER 2021-06-23 11:20:00 RussoLogan del cid [facility] POCT-GLUCOSE METER 2021-06-23 07:29:00 Logan Russo [facility] BASIC METABOLIC PANEL (7) 2021-06-23 04:49:00 Omaira Manzo [facility] MAGNESIUM 2021-06-23 04:49:00 Davion [facility] PHOSPHORUS 2021-06-23 04:49:00 Davion [facility] CBC (HEMOGRAM ONLY) 2021-06-23 02:41:[address] [facility] APTT 2021-06-23 02:41:00 Mary, [facility] PROTHROMBIN TIME/INR 2021-06-23 02:41:00 Mary, [facility] XR CHEST 1 VIEW PORTABLE 2021-06-23 01:19:00 Martinez Ricardo [facility] POCT-GLUCOSE METER 2021-06-22 22:11:00 RussoLogan del cid [facility] POCT-GLUCOSE METER 2021-06-22 18:02:00 Logan Russo [facility] 2D ECHO W/ DOPPLER 2021-06-22 15:55:38 Lupis Erwin CH, I [facility] (CW/PW/COLOR) [facility] BASIC METABOLIC PANEL (7) 2021-06-22 14:30:00 Omaira Manzo [facility] POCT-GLUCOSE METER 2021-06-22 12:25:00 Russo, Logan R [facility] HEMODIALYSIS INPATIENT 2021-06-22 11:44:15 Wilner Aponte [facility] OXYGEN SATURATION, 2021-06-22 10:35:00 Lupis Erwin CH I [facility] BASIC METABOLIC PANEL (7) 2021-06-22 05:37:00 Omaira Manzo [facility] CBC (HEMOGRAM ONLY) 2021-06-22 01:34:[address] [facility] APTT 2021-06-22 01:34:00 Mary, [facility] PROTHROMBIN TIME/INR 2021-06-22 01:34:00 Abel Hernandez [facility] BASIC METABOLIC PANEL (7) 2021-06-22 01:33:00 Omaira Manzo [facility] MAGNESIUM 2021-06-22 01:33:00 Davion [facility] PHOSPHORUS 2021-06-22 01:33:00 [facility] XR CHEST 1 VIEW PORTABLE 2021-06-22 01:05:00 Davion [facility] POCT-GLUCOSE METER 2021-06-21 21:09:00 RussoLogan del cid [facility] POCT-GLUCOSE METER 2021-06-21 18:58:00 RussoLogan del cid [facility] POCT-GLUCOSE METER 2021-06-21 13:30:00 Logan Russo [facility] BASIC METABOLIC PANEL (7) 2021-06-21 13:29:00 Omaira Manzo [facility] PREPARE LEUKO-REDUCED RBC 2021-06-21 03:28:00 Derick Carver Si [facility] BASIC METABOLIC PANEL (7) 2021-06-21 03:21:00 Omaira Manzo [facility] MAGNESIUM 2021-06-21 03:21:00 Samia Tamayo [facility] PHOSPHORUS 2021-06-21 03:21:00 Roni [facility] CBC (HEMOGRAM ONLY) 2021-06-21 03:21:00 [facility] 2021-06-21 03:21:00 Mary [facility] PROTHROMBIN TIME/INR 2021-06-21 03:21:00 Abel Hernandez [facility] XR CHEST 1 VIEW PORTABLE 2021-06-21 01:34:00 [facility] PREPARE LEUKO-REDUCED RBC 2021-06-20 23:54:00 Art Jiménez [facility] BASIC METABOLIC PANEL (7) 2021-06-20 17:40:00 Omaira Manzo [facility] POCT-GLUCOSE METER 2021-06-20 13:33:00 RussoLogan [facility] POCT-GLUCOSE METER 2021-06-20 06:06:00 Logan Russo [facility] SARS-COV2/RT-PCR ([facility] & 2021-06-20 01:20:00 Davion [facility] REF LABS) [facility] BLOOD GAS, ARTERIAL 2021-06-20 01:20:00 Abel Hernandez [facility] BASIC METABOLIC PANEL (7) 2021-06-20 01:19:00 AhSamia smith I [facility] MAGNESIUM 2021-06-20 01:19:00 Ahmapamela [facility] PHOSPHORUS 2021-06-20 01:19:00 Roni [facility] CBC (HEMOGRAM ONLY) 2021-06-20 01:19:00 [facility] 2021-06-20 01:19:00 Mary Abel [facility] PROTHROMBIN TIME/INR 2021-06-20 01:19:00 Mary, Abel [facility] CALCIUM, IONIZED 2021-06-20 01:19:00 Jersey Costello [facility] XR CHEST 1 VIEW PORTABLE 2021-06-20 01:05:00 Martinez Ricardo [facility] PREPARE PLATELETS 2021-06-19 23:55:00 Jameson Kuo [facility] PREPARE RBC 2021-06-19 23:54:00 Logan Russo [facility] MAGNESIUM 2021-06-19 21:32:00 Jersey Costello [facility] PH, ARTERIAL 2021-06-19 21:32:00 Jersey Costello [facility] PHOSPHORUS 2021-06-19 21:32:00 Jersey Costello [facility] BASIC METABOLIC PANEL (7) 2021-06-19 21:32:00 Omaira Manzo [facility] POCT-GLUCOSE METER 2021-06-19 17:55:00 Logan Russo [facility] BLOOD GAS, ARTERIAL 2021-06-19 12:39:00 MaryAbel [facility] BLOOD GAS, ARTERIAL 2021-06-19 11:13:00 MaryAbel hernandez [facility] POCT-GLUCOSE METER 2021-06-19 08:41:00 RussoLogan del cid [facility] TRANSFUSE LEUKO-REDUCED 2021-06-19 07:45:00 Derick Carver [facility] RED BLOOD CELLS [facility] BASIC METABOLIC PANEL (7) 2021-06-19 02:14:00 Samia Tamayo CH I [facility] MAGNESIUM 2021-06-19 02:14:00 AhmaSamia santiago [facility] PHOSPHORUS 2021-06-19 02:14:00 Samia Tamayo [facility] CBC (HEMOGRAM ONLY) 2021-06-19 02:14:[address] [facility] APTT 2021-06-19 02:14:00 Abel Hernandez [facility] PROTHROMBIN TIME/INR 2021-06-19 02:14:00 MaryAbel hernandez [facility] BLOOD GAS, ARTERIAL 2021-06-19 02:14:00 MaryAbel hernandez [facility] OXYGEN SATURATION, 2021-06-19 02:14:00 Art Jiménez [facility] XR CHEST 1 VIEW PORTABLE 2021-06-19 01:52:00 Martinez Ricardo [facility] POCT-GLUCOSE METER 2021-06-18 23:55:00 Russo, Logan Vaca [facility] PREPARE LEUKO-REDUCED RBC 2021-06-18 23:55:00 Shiva Jeter [facility] POCT-GLUCOSE METER 2021-06-18 23:03:00 Russo, Logan Vaca [facility] POCT-GLUCOSE METER 2021-06-18 21:14:00 Russo, Logan Vaca [facility] POCT-GLUCOSE METER 2021-06-18 18:54:00 Russo, Logan Vaca [facility] CBC (HEMOGRAM ONLY) 2021-06-18 18:15:00 MaryAbel [facility] BASIC METABOLIC PANEL (7) 2021-06-18 18:15:00 MaryAbel [facility] APTT 2021-06-18 18:15:00 MaryAbel [facility] PROTHROMBIN TIME/INR 2021-06-18 18:15:00 MaryAbel hernandez [facility] LACTIC ACID, ARTERIAL 2021-06-18 18:15:00 MaryAbel CH I [facility] PHOSPHORUS 2021-06-18 18:15:00 MaryAbel [facility] MAGNESIUM 2021-06-18 18:15:00 MaryAbel hernandez [facility] BLOOD GAS, ARTERIAL 2021-06-18 18:15:00 MaryAbel [facility] OXYGEN SATURATION, 2021-06-18 18:15:00 MaryAbel hernandez [facility] RRL CRITICAL LABS 2021-06-18 16:04:00 Abel Hernandez [facility] (ABG,NA,K,H&H,GLUCOSE) Medical C enter CALCIUM, IONIZED 2021-06-18 16:04:00 Abel Hernandez [facility] BLOOD GAS, ARTERIAL 2021-06-18 16:04:00 Abel Hernandez [facility] SODIUM NA-STAT LAB 2021-06-18 16:04:00 Mary [facility] POTASSIUM-STAT LAB 2021-06-18 16:04:00 Mary, [facility] GLUCOSE-STAT LAB 2021-06-18 16:04:00 Mary Abel [facility] HGB/HCT (H&H) - STAT LAB 2021-06-18 16:04:00 Abel Hernandez [facility] PREPARE PLASMA 2021-06-18 15:44:00 Logan Russo [facility] XR CHEST 1 VIEW PORTABLE 2021-06-18 15:33:00 [facility] OXYGEN SATURATION, 2021-06-18 15:03:00 Abel Hernandez [facility] SURGICALLY OBTAINED 2021-06-18 15:01:35 Logan Russo [facility] CULTURE + GRAM STAIN Medical [facility] ter FUNGUS CULTURE + SMEAR 2021-06-18 15:01:35 Logan Russo [facility] CULTURE + SMEAR 2021-06-18 15:01:35 Logan Russo [facility] (NON-SPUTUM) [facility] HEMOGLOBIN AND HEMATOCRIT 2021-06-18 14:58:00 Luh Cosby CH I [facility] CBC W/PLT COUNT & AUTO 2021-06-18 14:58:[address] [facility] DIFFERENTIAL [facility] CBC W/PLT COUNT & AUTO 2021-06-18 14:58:[address] [facility] DIFFERENTIAL [facility] (CELLAVISION MANUAL DIFF) 2021-06-18 14:58:00 Abel Hernandez [facility] BASIC METABOLIC PANEL (7) 2021-06-18 14:57:00 MaryAbel [facility] MAGNESIUM 2021-06-18 14:57:00 MaryAbel hernandez [facility] CALCIUM, IONIZED 2021-06-18 14:57:00 Mary Abelscarlett Rey [facility] PROTHROMBIN TIME/INR 2021-06-18 14:57:00 MaryAbel [facility] APTT 2021-06-18 14:57:00 Mary [facility] PHOSPHORUS 2021-06-18 14:57:00 Mary [facility] POTASSIUM 2021-06-18 14:57:00 [facility] PREPARE PLATELETS 2021-06-18 14:20:00 Jameson Kuo [facility] PLATELET COUNT 2021-06-18 13:12:54 Max [facility] POCT-ACT 2021-06-18 13:08:00 Logan Russo [facility] RRL CRITICAL LABS 2021-06-18 13:05:56 [facility] (ABG,NA,K,H&H,GLUCOSE) [facility] enter CALCIUM, IONIZED 2021-06-18 13:05:56 Crabtree [facility] FIBRINOGEN 2021-06-18 13:05:56 Crabtree [facility] APTT 2021-06-18 13:05:56 Crabtree [facility] PROTHROMBIN TIME/INR 2021-06-18 13:05:56 Max [facility] BLOOD GAS, ARTERIAL 2021-06-18 13:05:[address] [facility] SODIUM NA-STAT LAB 2021-06-18 13:05:[address] [facility] POTASSIUM-STAT LAB 2021-06-18 13:05:56 Asad Santana [facility] GLUCOSE-STAT LAB 2021-06-18 13:05:56 Max [facility] HGB/HCT (H&H) - STAT LAB 2021-06-18 13:05:56 CrabtreeAsad morel [facility] TRANSFUSE LEUKO-REDUCED 2021-06-18 12:46:00 Asad Santana CH I [facility] PLATELETS [facility] TRANSFUSE LEUKO-REDUCED 2021-06-18 12:45:00 Asad Santana I [facility] PLATELETS [facility] RRL CRITICAL LABS 2021-06-18 12:22:57 [facility] (ABG,NA,K,H&H,GLUCOSE) Medical C enter BLOOD GAS, ARTERIAL 2021-06-18 12:22:57 Logan Russo [facility] SODIUM NA-STAT LAB 2021-06-18 12:22:57 Logan Russo [facility] POTASSIUM-STAT LAB 2021-06-18 12:22:57 Logan Russo [facility] GLUCOSE-STAT LAB 2021-06-18 12:22:57 Logan Russo [facility] HGB/HCT (H&H) - STAT LAB 2021-06-18 12:22:57 Logan Russo [facility] POCT-ACT 2021-06-18 12:20:00 Logan Russo [facility] RRL CRITICAL LABS 2021-06-18 12:17:57 [facility] (ABG,NA,K,H&H,GLUCOSE) Medical C enter BLOOD GAS, ARTERIAL 2021-06-18 12:17:57 Logan Russo [facility] SODIUM NA-STAT LAB 2021-06-18 12:17:57 Logan Russo [facility] POTASSIUM-STAT LAB 2021-06-18 12:17:57 Logan Russo [facility] GLUCOSE-STAT LAB 2021-06-18 12:17:57 Beth Logan [facility] HGB/HCT (H&H) - STAT LAB 2021-06-18 12:17:57 Beth Logan [facility] MISCELLANEOUS LAB ORDER 2021-06-18 11:59:38 Max Asad I [facility] PLATELET COUNT 2021-06-18 11:59:38 Max [facility] FIBRINOGEN 2021-06-18 11:59:38 Crabtree [facility] PROTHROMBIN TIME/INR 2021-06-18 11:59:38 Max [facility] APTT 2021-06-18 11:59:38 [facility] PO[facility]ACT 2021-06-18 11:43:00 Beth [facility] TISSUE EXAM 2021-06-18 11:41:00 Beth [facility] RRL CRITICAL LABS 2021-06-18 11:40:27 Beth [facility] es (ABG,NA,K,H&H,GLUCOSE) Medical C enter BLOOD GAS, ARTERIAL 2021-06-18 11:40:27 Beth [facility] SODIUM NA-STAT LAB 2021-06-18 11:40:[address] [facility] POTASSIUM-STAT LAB 2021-06-18 11:40:[address] [facility] GLUCOSE-STAT LAB 2021-06-18 11:40:27 Beth [facility] HGB/HCT (H&H) - STAT LAB 2021-06-18 11:40:27 Beth [facility] POCT-ACT 2021-06-18 11:15:00 Beth [facility] RRL CRITICAL LABS 2021-06-18 11:13:46 Logan Russo [facility] es (ABG,NA,K,H&H,GLUCOSE) Medical C enter BLOOD GAS, ARTERIAL 2021-06-18 11:13:46 Russo, [facility] SODIUM NA-STAT LAB 2021-06-18 11:13:46 Russo, [facility] POTASSIUM-STAT LAB 2021-06-18 11:13:46 Russo, [facility] GLUCOSE-STAT LAB 2021-06-18 11:13:46 Russo, [facility] HGB/HCT (H&H) - STAT LAB 2021-06-18 11:13:46 Russo, [facility] POCT-ACT 2021-06-18 10:47:00 Russo, [facility] RRL CRITICAL LABS 2021-06-18 10:45:20 Russo, [facility] (ABG,NA,K,H&H,GLUCOSE) [facility] enter BLOOD GAS, ARTERIAL 2021-06-18 10:45:20 Russo, [facility] SODIUM NA-STAT LAB 2021-06-18 10:45:20 Russo, [facility] POTASSIUM-STAT LAB 2021-06-18 10:45:20 Russo, [facility] GLUCOSE-STAT LAB 2021-06-18 10:45:20 Russo, [facility] HGB/HCT (H&H) - STAT LAB 2021-06-18 10:45:20 Russo, [facility] POCT-ACT 2021-06-18 10:14:00 Russo, [facility] ANESTHESIA NIMCO 2021-06-18 10:03:[address] [facility] TRANSFUSE LEUKO-REDUCED 2021-06-18 09:26:[address] [facility] RED BLOOD CELLS [facility] RRL CRITICAL LABS 2021-06-18 08:54:20 Asad Santana [facility] (ABG,NA,K,H&H,GLUCOSE) [facility] enter CALCIUM, IONIZED 2021-06-18 08:54:20 [place], [facility] BLOOD GAS, ARTERIAL 2021-06-18 08:54:[address] [facility] SODIUM NA-STAT LAB 2021-06-18 08:54:[address] [facility] POTASSIUM-STAT LAB 2021-06-18 08:54:[address] [facility] GLUCOSE-STAT LAB 2021-06-18 08:54:20 Max [facility] HGB/HCT (H&H) - STAT LAB 2021-06-18 08:54:20 Max [facility] REPAIR,MITRAL VALVE 2021-06-18 07:38:00 Russo, [facility] VALVULOPLASTY,TRICUSPID 2021-06-18 07:38:00 Russo [facility] STERNOTOMY 2021-06-18 07:38:00 Russo, [facility] NIMCO 2021-06-18 07:38:00 Russo, [facility] CBC W/PLT COUNT & AUTO 2021-06-18 05:37:00 Roni [facility] BASIC METABOLIC PANEL (7) 2021-06-18 05:37:00 Roni [facility] MAGNESIUM 2021-06-18 05:37:00 Ahsarah [facility] PHOSPHORUS 2021-06-18 05:37:00 Ahsarah [facility] CBC W/PLT COUNT & AUTO 2021-06-18 05:37:00 [facility] LEUKO-REDUCED 2021-06-17 23:31:00 Shiva J[facility] RED BLOOD CELLS [facility] POCT-GLUCOSE METER 2021-06-17 21:28:00 Harjeet [facility] HEMOGLOBIN AND HEMATOCRIT 2021-06-17 21:16:00 Harjeet [facility] ABDOMEN/PELVIS WITHOUT 2021-06-17 17:07:[address] [facility] IV CONTRAST [facility] XR ABDOMEN / KUB 1 VIEW 2021-06-17 16:15:00 Harjeet trey [facility] MAGNESIUM 2021-06-17 15:48:00 [facility] COMPREHENSIVE METABOLIC 2021-06-17 15:48:00 [facility] PANEL [facility] HEMOGLOBIN A1C 2021-06-17 15:48:00 [facility] CBC W/PLT COUNT & AUTO 2021-06-17 15:48:00 [facility] DIFFERENTIAL [facility] PROTHROMBIN TIME/INR 2021-06-17 15:48:00 [facility] APTT 2021-06-17 15:48:00 [facility] TYPE AND SCREEN, 2021-06-17 15:48:00 [facility] AUTOMATED [facility] CBC W/PLT COUNT & AUTO 2021-06-17 15:48:00 [facility] DIFFERENTIAL [facility] ECG 12-LEAD 2021-06-17 15:31:19 [facility] HEMODIALYSIS INPATIENT 2021-06-17 08:22:41 Wilner Aponte [facility] CBC W/PLT COUNT & AUTO 2021-06-17 04:15:00 sarah [facility] BASIC METABOLIC PANEL (7) 2021-06-17 04:15:00 Samia Tamayo [facility] MAGNESIUM 2021-06-17 04:15:00 Samia Tamayo [facility] PHOSPHORUS 2021-06-17 04:15:00 Roni [facility] CBC W/PLT COUNT & AUTO 2021-06-17 04:15:00 Roni [facility] POCT-GLUCOSE METER 2021-06-16 23:59:00 [facility] POCT-GLU[facility]SE METER 2021-06-16 18:00:00 Harjeet, [facility] [place] CEREBRAL 4 VESSEL 2021-06-16 12:55:00 Eloy Portillo [facility] ANGIOGRAM Medical Center PACEMAKER CHECK WITH 2021-06-16 10:00:06 Rosa Maria [facility] REPROGRAMMING [facility] MR BRAIN WITHOUT IV 2021-06-16 09:57:00 Ladarius Jc [facility] CONTRAST [facility] PACEMAKER CHECK WITH 2021-06-16 09:31:48 Rosa Maria [facility] REPROGRAMMING [facility] POCT-GLUCOSE METER 2021-06-16 07:18:00 Harjeet [facility] CBC W/PLT COUNT & AUTO 2021-06-16 04:21:00 Roni [facility] BASIC METABOLIC PANEL (7) 2021-06-16 04:21:00 Samia Tamayo [facility] MAGNESIUM 2021-06-16 04:21:00 Roni [facility] PHOSPHORUS 2021-06-16 04:21:00 Roni [facility] CBC W/PLT COUNT & AUTO 2021-06-16 04:21:00 Roni [facility] POCT-GLUCOSE METER 2021-06-15 21:28:00 Harjeet [facility] CTA HEART CORONARY WITH 2021-06-15 18:20:00 Roni [facility] CALCIUM EVALUATION Medical Cente r WITHOUT FFR HEPATIC FUNCTION PANEL 2021-06-15 15:18:00 Harjeet [facility] ABORH, MANUAL 2021-06-15 05:54:00 Kelli Merrill [facility] PT/APTT 2021-06-15 04:16:00 Roni [facility] CBC W/PLT COUNT & AUTO 2021-06-15 04:16:00 Marenpamela [facility] BASIC METABOLIC PANEL (7) 2021-06-15 04:16:00 AhakilSamia santiago [facility] MAGNESIUM 2021-06-15 04:16:00 Ahakilpamela [facility] PHOSPHORUS 2021-06-15 04:16:00 sarah [facility] TYPE AND SCREEN, 2021-06-15 04:16:00 Ahmapamela [facility] CBC W/PLT COUNT & AUTO 2021-06-15 04:16:00 Sravansarah [facility] POCT-GLUCOSE METER 2021-06-14 11:09:00 Ladarius Jc [facility] nter POCT-GLUCOSE METER 2021-06-14 07:31:00 Ladarius [facility] EEG 12-26 HR CONTINUOUS 2021-06-14 06:25:[address] [facility] MONITORING WITH VIDEO [facility] CBC W/PLT COUNT & AUTO 2021-06-14 04:05:00 Roni [facility] BASIC METABOLIC PANEL (7) 2021-06-14 04:05:00 Samia Tamayo [facility] MAGNESIUM 2021-06-14 04:05:00 Ahmapamela [facility] PHOSPHORUS 2021-06-14 04:05:00 Ahsarah [facility] CBC W/PLT COUNT & AUTO 2021-06-14 04:05:00 Angel Saenz [facility] POCT-GLUCOSE METER 2021-06-13 17:10:00 Ladarius Jc [facility] nter POCT-GLUCOSE METER 2021-06-13 12:44:00 Ladarius J[facility] HEPARIN ANTIBODY 2021-06-13 11:25:[address] [facility] EEG 12-26 HR CONTINUOUS 2021-06-13 11:06:00 Pamela Orta [facility] MONITORING WITH VIDEO Medical Ce nter IRON, TIBC, % SAT. 2021-06-13 08:28:00 [facility] Cent[facility] r FERRITIN 2021-06-13 08:28:00 [facility] POCT-[facility]SE METER 2021-06-13 08:27:00 Mary Kate Gracia [facility] CBC W/PLT COUNT & AUTO 2021-06-13 03:36:00 Samia Tamayo [facility] BASIC METABOLIC PANEL (7) 2021-06-13 03:36:00 Samia Tamayo I [facility] MAGNESIUM 2021-06-13 03:36:00 AhSamia smith [facility] PHOSPHORUS 2021-06-13 03:36:00 AhmaSamia santiago [facility] CBC W/PLT COUNT & AUTO 2021-06-13 03:36:00 Dany Angel [facility] POCT-GLUCOSE METER 2021-06-13 01:48:00 Mary Kate Gracia [facility] HEMODIALYSIS INPATIENT 2021-06-12 23:02:53 Harshil Loving [facility] POCT-GLUCOSE METER 2021-06-12 18:54:00 Mary Kate Gracia [facility] SARS-COV2/RT-PCR ([facility] & 2021-06-12 17:07:00 Martinez Ricardo [facility] REF LABS) [facility] EEG AWAKE AND DROWSY 2021-06-12 12:20:[address] [facility] BRAIN WITHOUT IV 2021-06-12 08:15:00 Angel Saenz [facility] POCT-GLUCOSE METER 2021-06-12 07:20:00 Mary Kate Gracia [facility] CTA BRAIN 2021-06-12 01:53:00 Janina, [facility] CTA CAROTID 2021-06-12 01:53:00 Janina [facility] CT BRAIN WITHOUT IV 2021-06-12 01:31:00 Janina [facility] CBC W/PLT COUNT & AUTO 2021-06-12 01:07:00 Samia Tamayo [facility] HIGH SENSITIVITY TROPONIN 2021-06-12 01:07:00 [facility] LACTIC ACID, VENOUS 2021-06-12 01:07:00 [facility] PROTHROMBIN TIME/INR 2021-06-12 01:07:00 [facility] CBC W/PLT COUNT & AUTO 2021-06-12 01:07:00 Anshul Acharya [facility] BASIC METABOLIC PANEL (7) 2021-06-12 00:49:00 Samia Tamayo I [facility] MAGNESIUM 2021-06-12 00:49:00 AhmadSamia [facility] PHOSPHORUS 2021-06-12 00:49:00 Roni [facility] ECG 12-LEAD 2021-06-12 00:43:57 Unknown, 7 [facility] ECG 12-LEAD 2021-06-12 00:43:57 Unknown, 7 [facility] ECG 12-LEAD 2021-06-12 00:40:07 Unknown, 7 [facility] ECG 12-LEAD 2021-06-12 00:39:50 Unknown, 7 [facility] ECG 12-LEAD 2021-06-12 00:39:50 Unknown, 7 [facility] POCT-GLUCOSE METER 2021-06-12 00:35:00 [facility] POCT-GLUCOSE METER 2021-06-11 20:12:00 [facility] POCT-GLUCOSE METER 2021-06-11 16:12:00 [facility]ia [facility] SteeleEmmett [facility] BLOOD CULTURE 2021-06-11 11:47:[address] [facility] POCT-GLUCOSE METER 2021-06-11 11:17:00 Samia [facility] SteeleEmmett [facility] PACEMAKER CHECK 2021-06-11 10:59:25 Hernandez James [facility] POCT-GLUCOSE METER 2021-06-11 06:33:00 [facility] BLOOD CULTURE 2021-06-11 04:03:00 Jessica John [facility] CBC W/PLT COUNT & AUTO 2021-06-11 04:03:00 Roni [facility] BASIC METABOLIC PANEL (7) 2021-06-11 04:03:00 Samia Tamayo I [facility] MAGNESIUM 2021-06-11 04:03:00 AhSamia smith [facility] PHOSPHORUS 2021-06-11 04:03:00 Samia Tamayo [facility] CBC W/PLT COUNT & AUTO 2021-06-11 04:03:00 Anshul Acharya [facility] POCT-BLOOD GASES, VENOUS 2021-06-10 22:25:00 [facility] POCT-SODIUM 2021-06-10 22:25:00 [facility] POCT-POTASSIUM 2021-06-10 22:25:00 Samia [facility] POCT-HEMOGLOBIN 2021-06-10 22:25:00 Samia [facility] POCT-HEMATOCRIT 2021-06-10 22:25:00 Samia [facility] POCT-GLUCOSE 2021-06-10 22:25:00 Samia [facility] CBC W/PLT COUNT & AUTO 2021-06-10 22:23:[address] [facility] CBC W/PLT COUNT & AUTO 2021-06-10 22:23:[address] [facility] XR CHEST 1 VIEW PORTABLE 2021-06-10 22:14:00 Jessica John [facility] / BEDSIDE [facility] BLOOD CULTURE 2021-06-10 22:08:00 Jessica John [facility] LACTIC ACID, VENOUS 2021-06-10 22:07:00 Jessica John [facility] POCT-GLUCOSE METER 2021-06-10 21:20:00 [facility] HEMODIALYSIS INPATIENT 2021-06-10 17:49:00 Wilner Aponte [facility] POCT-GLUCOSE METER 2021-06-10 16:22:00 [facility] POCT-GLUCOSE METER 2021-06-10 11:29:00 [facility] POCT-GLUCOSE METER 2021-06-10 07:27:00 [facility] CBC W/PLT COUNT & AUTO 2021-06-10 04:36:00 Roni [facility] BASIC METABOLIC PANEL (7) 2021-06-10 04:36:00 Samia Tamayo [facility] MAGNESIUM 2021-06-10 04:36:00 AhSamia smith [facility] PHOSPHORUS 2021-06-10 04:36:00 Samia Tamayo [facility] CBC W/PLT COUNT & AUTO 2021-06-10 04:36:00 Anshul Acharya [facility] POCT-GLUCOSE METER 2021-06-09 21:22:00 Haj-Ismail, [facility] POCT-GLUCOSE METER 2021-06-09 16:16:00 Haj-Ismail, [facility] 2D ECHO W/ DOPPLER 2021-06-09 12:21:49 Uri Umanzor [facility] (CW/PW/COLOR) [facility] TRANSESOPHAGEAL ECHO 2021-06-09 09:04:02 Hill [facility] POCT-GLUCOSE METER 2021-06-09 06:11:00 Haj-Ismail, [facility] CBC W/PLT COUNT & AUTO 2021-06-09 03:34:00 Ahsarah [facility] BASIC METABOLIC PANEL (7) 2021-06-09 03:34:00 Samia Tamayo [facility] MAGNESIUM 2021-06-09 03:34:00 AhSamia smith [facility] PHOSPHORUS 2021-06-09 03:34:00 AhSamia smith [facility] CBC W/PLT COUNT & AUTO 2021-06-09 03:34:00 Anshul Acharya [facility] POCT-GLUCOSE METER 2021-06-08 21:03:00 Haj-Isherbert [facility] HEMODIALYSIS INPATIENT 2021-06-08 15:21:58 Jersey [facility] COLOR-FLOW MAPPING 2021-06-08 13:42:25 Hill [facility] CONT WAVE PULSED DOPPLER 2021-06-08 13:42:25 Hill [facility] PTH, INTACT 2021-06-08 10:29:00 Jersey Costello [facility] HEPATITIS B SURFACE 2021-06-08 10:29:00 Real Delgado [facility] HEPATITIS PANEL, ACUTE 2021-06-08 10:29:00 Haj-Ismail, [facility] POCT-GLUCOSE METER 2021-06-08 06:59:00 Jameson Kuo [facility] CBC W/PLT COUNT & AUTO 2021-06-08 05:00:00 Roni [facility] BASIC METABOLIC PANEL (7) 2021-06-08 05:00:00 Samia Tamayo MARY JO Mendoza [facility] MAGNESIUM 2021-06-08 05:00:00 Roni Samia [facility] PHOSPHORUS 2021-06-08 05:00:00 Samia Tamayo [facility] PROTHROMBIN TIME/INR 2021-06-08 05:00:00 Anshul Acharya [facility] VITAMIN B12 2021-06-08 05:00:00 Anshul Acharya [facility] FERRITIN 2021-06-08 05:00:00 Jersey [facility] IRON, TIBC, % SAT. 2021-06-08 05:00:00 Jersey [facility] (WITHOUT FERRITIN) [facility] VITAMIN D, 25-HYDROXY 2021-06-08 05:00:00 [place] [facility] CBC W/PLT COUNT & AUTO 2021-06-08 05:00:00 Anshul Acharya [facility] US ABDOMEN LIMITED 2021-06-08 04:51:00 Anshul Acharya [facility] SARS-COV2/RT-PCR ([facility] & 2021-06-07 23:43:00 Angel Saenz [facility] REF LABS) [facility] POCT-GLUCOSE METER 2021-06-07 23:11:00 Jameson Kuo [facility] ECG 12-LEAD 2021-06-07 23:06:38 Unknown, Hl7 [facility] ECG 12-LEAD 2021-06-07 23:06:38 Unknown, Hl7 [facility] BLOOD CULTURE 2021-06-07 21:48:00 Anshul Acharya [facility] BLOOD CULTURE 2021-06-07 21:41:00 Anshul Acharya [facility] CBC W/PLT COUNT & AUTO 2021-06-07 21:41:00 Anshul Acharya [facility] COMPREHENSIVE METABOLIC 2021-06-07 21:41:00 Anshul Acharya [facility] VANCOMYCIN LEVEL, RANDOM 2021-06-07 21:41:00 Anshul Acharya [facility] CBC W/PLT COUNT & AUTO 2021-06-07 21:41:00 Anshul Acharya [facility] XR CHEST 1 VIEW PORTABLE 2021-06-07 19:59:00 Anshul Acharya [facility] / BEDSIDE [facility] VASCULAR DIAGRAM -SCAN 2021-06-07 00:00:00 Provider, Default [facility] CARDIAC CATH REPORT - 2021-06-07 00:00:00 Provider, Default [facility] ARRYTHMIA IMPLANT REPORT 2021-06-07 00:00:00 Provider, Default Tyrel [facility] - SCAN [facility] POCT GLUCOSE (AUTOMATED) 2021-05-22 23:19:00 Neil Thomas [facility] POCT GLUCOSE (AUTOMATED) 2021-05-22 17:36:00 Neil Thomas [facility] POCT GLUCOSE (AUTOMATED) 2021-05-22 13:43:00 Neil Thomas [facility] BASIC METABOLIC PANEL 2021-05-22 09:37:00 José Miguel [facility] (NA, K, CL, CO2, GLUCOSE, Medica l Branch BUN, CREATININE, CA) CBC WITH DIFF 2021-05-22 09:37:00 José Miguel Horn [facility] GLUCOSE 2021-05-21 23:41:00 Ricki [facility] PROTEIN TOTAL 2021-05-21 23:41:00 Ricki [facility] LACTATE DEHYDROGENASE 2021-05-21 23:41:00 [facility] TROPONIN I 2021-05-21 23:41:00 Tameka Mcdaniels [facility] N-TERMINAL PRO-BNP 2021-05-21 23:41:00 José Miguel [facility] POCT GLUCOSE (AUTOMATED) 2021-05-21 23:14:00 Neil Thomas [facility] POCT GLUCOSE (AUTOMATED) 2021-05-21 16:58:00 Neil Thomas [facility] POCT GLUCOSE (AUTOMATED) 2021-05-21 13:47:00 Neil Thomas [facility] XR CHEST 1 VW 2021-05-21 13:06:[address] [facility] VITAMIN B12, LEVEL 2021-05-21 12:51:00 Gt becky [facility] FOLATE 2021-05-21 12:51:[address] [facility] TROPONIN I 2021-05-21 12:51:[address] [facility] IRON PANEL 2021-05-21 12:51:[address] [facility] VITAMIN D, 25-OH 2021-05-21 12:51:00 [facility] SERUM 2021-05-21 09:32:[address] [facility] TROPONIN I 2021-05-21 09:32:[address] [facility] HEPATIC FUNCTION PANEL 2021-05-21 09:32:00 Gt [facility] [address] ([id number]) (ALB,T.PRO,[facility] T,BU/BC,ALT,AST,ALK PHOS) BASIC METABOLIC PANEL 2021-05-21 09:32:00 José Miguel Horn [facility] (NA, K, CL, CO2, GLUCOSE, Medica l Branch BUN, CREATININE, CA) DIFF CONSULT 2021-05-21 09:32:00 Gt [facility] CBC WITH DIFF 2021-05-21 09:32:00 Kory [facility] N-TERMINAL PRO-BNP 2021-05-21 09:32:00 Gt becky [facility] POCT GLUCOSE (AUTOMATED) 2021-05-21 02:22:00 Neil Thomas [facility] XR CHEST 1 VW 2021-05-20 22:21:01 Ricki [facility] POCT GLUCOSE (AUTOMATED) 2021-05-20 22:14:00 Neil Thomas [facility] PH, BODY FLUID 2021-05-20 22:04:00 Ricki [facility] o [facility] T.PROTEIN BODY FLUID 2021-05-20 22:04:00 Candido [facility] BODY FLUID DIRECT COUNT 2021-05-20 22:04:00 Nemesio [facility] CYTO PLEURAL FLUID 2021-05-20 22:04:00 Candido Rob[facility] y [facility] LDH TOTAL BODY FLUID 2021-05-20 22:04:00 Holly Red[facility] AFB CULTURE 2021-05-20 21:50:00 Ricki [facility] o [facility] BODY FLUID 2021-05-20 21:50:00 Ricki [facility] CULTURE(AEROBIC/ANAEROBIC Medica l Branch ) XR CHEST 1 VW 2021-05-20 19:13:56 Rikci [facility] POCT GLUCOSE (AUTOMATED) 2021-05-20 16:59:00 Neil Thomas [facility] POCT GLUCOSE (AUTOMATED) 2021-05-20 13:25:00 Neil Thomas [facility] LACTATE DEHYDROGENASE 2021-05-20 09:50:00 Holly Redding [facility] BASIC METABOLIC PANEL 2021-05-20 09:50:00 Holly Redding [facility] (NA, K, CL, CO2, GLUCOSE, Medica l Branch BUN, CREATININE, CA) PROTHROMBIN TIME / INR 2021-05-20 09:50:00 Holly Redding U [facility] N-TERMINAL PRO-BNP 2021-05-20 09:50:00 Tameka [facility]cd[facility] POCT GLUCOSE (AUTOMATED) 2021-05-20 01:35:00 Neil Thomas [facility] POCT GLUCOSE (AUTOMATED) 2021-05-19 23:08:00 Neil Thomas [facility] POCT GLUCOSE (AUTOMATED) 2021-05-19 17:39:00 Neil Thomas [facility] POCT GLUCOSE (AUTOMATED) 2021-05-19 14:04:00 Neil Thomas [facility] BASIC METABOLIC PANEL 2021-05-19 11:24[facility]00 [facility] ([facility], K, CL, CO2, GLUCOSE, Medica l Branch BUN, CREATININE, CA) CBC WITH DIFF 2021-05-19 11:24:00 [facility] N-TERMINAL PRO-BNP 2021-05-19 11:24:00 Tameka [facility]cd[facility] HEPATITIS B SURFACE 2021-05-19 03:18:00 [place], [facility] ANTIBODY [facility] HEPATITIS B SURFACE 2021-05-19 03:18:00 [place], [facility] ANTIGEN [facility] POCT GLUCOSE (AUTOMATED) 2021-05-19 03:11:00 Neil Thomas [facility] POCT GLUCOSE (AUTOMATED) 2021-05-18 22:43:00 Neil Thomas [facility] POCT GLUCOSE (AUTOMATED) 2021-05-18 17:46:00 Neil Thomas [facility] POCT GLUCOSE (AUTOMATED) 2021-05-18 17:04:00 Neil Thomas [facility] BASIC METABOLIC PANEL 2021-05-18 15:05:00 Holly Redding [facility] (NA, K, CL, CO2, GLUCOSE, Medica l Branch BUN, CREATININE, CA) POCT GLUCOSE (AUTOMATED) 2021-05-18 13:20:00 Neil Thomas [facility] DISCLOSURE AND CONSENT, 2021-05-18 06:01:00 Doctor Unassigned, N o [facility] MEDICAL AND SURGICAL Name Medical [facility] PROCEDURES POCT GLUCOSE (AUTOMATED) 2021-05-17 22:51:00 Neil Thomas [facility] POCT GLUCOSE (AUTOMATED) 2021-05-17 17:51:00 Neil Thomas [facility] TRANSTHORACIC ECHO (TTE) 2021-05-17 15:04:37 Neil Thomas [facility] POCT GLUCOSE (AUTOMATED) 2021-05-17 14:14:00 Neil Thomas [facility] PHOSPHORUS 2021-05-17 10:03:00 [facility] 2021-05-17 10:03:00 [facility] BASIC METABOLIC PANEL 2021-05-17 10:03:00 William [facility] (NA, K, CL, CO2, GLUCOSE, Medica l Branch BUN, CREATININE, CA) CBC WITHOUT DIFF 2021-05-17 10:03:00 William [facility] N-TERMINAL PRO-BNP 2021-05-17 10:03:00 William [facility] POCT GLUCOSE (AUTOMATED) 2021-05-16 22:34:00 [facility] PO[facility] GLU[facility]SE (AUTOMATED) 2021-05-16 17:41:00 William [facility] POCT GLUCOSE (AUTOMATED) 2021-05-16 13:39:00 William [facility] MAGNESIUM 2021-05-16 08:09:00 [facility] TROPONIN I 2021-05-16 08:09:00 [facility] BASIC METABOLIC PANEL 2021-05-16 08:09:00 William [facility] (NA, K, CL, CO2, GLUCOSE, Medica l Branch BUN, CREATININE, CA) LIPID PANEL ([id number])(TOTAL 2021-05-16 08:09:00 Neil Thomas [facility]IG[facility], HDL) CBC WITHOUT DIFF 2021-05-16 08:09:00 William [facility] GLYCOSYLATED HEMOGLOBIN 2021-05-16 08:09:00 [facility] (A1C) [facility] PHOSPHORUS 2021-05-16 02:06:00 Neil Thomas [place] [facility] TROPONIN I 2021-05-16 02:06:00 [facility] POCT GLUCOSE (AUTOMATED) 2021-05-16 02:05:00 Neil Thomas [facility] COVID-19 (ID NOW RAPID 2021-05-15 22:31:00 [facility]angel[facility] Medical Branch LAB ONLY COVID 2021-05-15 22:31:00 Dangelo Ibrahim [facility] INTERPRETATION [facility] XR KNEE <3 VW RIGHT 2021-05-15 22:12:44 Singer Dangelo [facility] CT CHEST PULMONARY 2021-05-15 22:00:00 Dangelo Ibrahim [facility] ANGIOGRAM [facility] XR CHEST 1 VW 2021-05-15 20:32:18 Singer [facility] LIPASE 2021-05-15 19:37:00 Singer [facility] MAGNESIUM 2021-05-15 19:37:00 Singer [facility] TROPONIN I 2021-05-15 19:37:00 Singer [facility] THYROID STIMULATING 2021-05-15 19:37:00 William Neil [facility] HORMONE [facility] COMP. METABOLIC PANEL 2021-05-15 19:37:00 Dangelo Ibrahim [facility] ([id number]) [facility] CBC WITH DIFF 2021-05-15 19:37:00 Singer [facility] GLYCOSYLATED HEMOGLOBIN 2021-05-15 19:37:00 [facility] PROTHROMBIN TIME / INR 2021-05-15 19:37:00 [facility]angel[facility] D-DIMER 2021-05-15 19:37:00 Singer [facility] N-TERMINAL PRO-BNP 2021-05-15 19:37:00 Singer Dangelo [facility] HB ECG ROUTINE & RHYTHM 2021-05-15 19:13:17 Ibrahim, Dangelo [facility] NOTICE OF PRIVACY 2021-05-15 18:55:45 Doctor Unassigned, No [facility] PRACTICES Name [facility] CONSENT/REFUSAL FOR 2021-05-15 18:55:20 Doctor Unassigned, No Un iversity [facility] DIAGNOSIS AND TREATMENT Name [facility] ADMISSION 2021-05-15 06:01:00 Doctor Unassigned, No Uni versity [facility] Chest Single View 2019-02-17 00:00:00 [facility] Influenza Type A Antigen 2019-02-17 00:00:00 Mem orial Juanito Screen Influenza Type B Antigen 2019-02-17 00:00:00 [facility] orial Juanito Screen Culture & Sensitivity 2019-01-25 00:00:00 Talisha Suarez Chest Pa And Lat (2 2019-01-25 00:00:00 [facility] Views) Anaerobic Blood Culture 2018-10-09 00:00:00 Dickson Solomon Aerobic Blood Culture 2018-10-09 00:00:00 Talisha Suarez Gram Stain 2018-10-09 00:00:00 [facility] Anaerobic Culture 2018-10-09 00:00:00 [facility] ermann Plan of Care Planned Activity Planned Date Details Comments Source Future Scheduled 2031-07-[address] [facility] colon (procedure) [code = 841922766] Future Scheduled 2031-07-[address] [facility] 00:00:00 [facility] colon (procedure) [code = 094076812] Future Scheduled 2031-07-[address] [facility] 00:00:00 [facility] colon (procedure) [code = 781023170] Future Scheduled 2031-07-[address] [facility] 00:00:00 [facility] colon (procedure) [code = 364607632] Future Scheduled 2031-07-[address] [facility] 00:00:00 [facility] colon (procedure) [code = 253300286] Future Scheduled 2031-07-[address] [facility] 00:00:00 [facility] colon (procedure) [code = 717866480] Future Scheduled 2023-04-[address] [facility] 00:00:00 [facility] cervix (procedure) [code = 970380600] Future Scheduled 2023-04-[address] [facility] 00:00:00 [facility] cervix (procedure) [code = 121111820] Future Scheduled 2023-04-[address] [facility] 00:00:00 [facility] cervix (procedure) [code = 784590050] Future Scheduled 2023-04-[address] [facility] 00:00:00 [facility] cervix (procedure) [code = 681503629] Future Scheduled 2023-04-[address] [facility] 00:00:00 [facility] cervix (procedure) [code = 913615150] Future Scheduled 2023-04-[address] [facility] 00:00:00 [facility] cervix (procedure) [code = 698012779] Future Scheduled 2023-04-[address] [facility] 00:00:00 [facility] cervix (procedure) [code = 698090455] Future Scheduled 2023-04-[address] [facility] 00:00:00 [facility] cervix (procedure) [code = 165307174] Future Scheduled 2023-04-[address] [facility] 00:00:00 [facility] cervix (procedure) [code = 300721218] Future Scheduled 2023-04-[address] [facility] 00:00:00 [facility] cervix (procedure) [code = 512938067] Future Scheduled 2023-04-[address] [facility] 00:00:00 [facility] cervix (procedure) [code = 655204598] Future Scheduled 2023-04-[address] [facility] [facility] 00:00:00 [facility] cervix (procedure) [code = 845779543] Future Scheduled [address] [...] [id number])] Future Scheduled 2021-07-08 COVID[facility]19 [facility] 18:18:56 [code = COVID-19 VACCINE (1)] Future Scheduled 2021-07-08 DIABETES: RETINAL EYE [facility] Test 18:18:56 EXAM [code = DIABETES: RETINAL EYE EXAM] Future Scheduled 2021-07-08 [facility] 18:18:56 [code = DIABETIC FOOT EXAM] Future Scheduled 2021-07-08 COLONOSCOPY SCREENING [facility] Test 18:18:56 [code = COLONOSCOPY SCREENING] Future Scheduled 2021-07-08 [facility] 18:18:56 [code = SHINGLES VACCINES (#1)] Future Scheduled 2021-07-08 BREAST CANCER [facility] Test 18:18:56 SCREENING [code = BREAST CANCER SCREENING] Future Scheduled 2021-07-08 [facility] 18:18:56 malignant neoplasm of cervix (procedure) [code = 264525045] Future Scheduled 2021-07-08 INFLUENZA VACCINE [facility] Test 18:18:56 [code = INFLUENZA VACCINE] Future Scheduled 2021-06-26 COVID-19 [facility]INE (1[facility] 14:10:19 [code = COVID-19 VACCINE (1)] Future Scheduled 2021-06-26 DIABETES: RETINAL EYE [facility] Test 14:10:19 EXAM [code = DIABETES: RETINAL EYE EXAM] Future Scheduled 2021-06-26 [facility] 14:10:19 [code = DIABETIC FOOT EXAM] Future Scheduled 2021-06-26 COLONOSCOPY SCREENING [facility] Test 14:10:19 [code = COLONOSCOPY SCREENING] Future Scheduled 2021-06-26 SHINGLES VACCINES (#1) [facility] Test 14:10:19 [code = SHINGLES VACCINES (#1)] Future Scheduled 2021-06-26 BREAST CANCER [facility] Test 14:10:19 SCREENING [code = BREAST CANCER SCREENING] Future Scheduled 2021-06-26 [facility] 14:10:19 malignant neoplasm of cervix (procedure) [code = 887738579] Future Scheduled 2021-06-26 INFLUENZA VACCINE [facility] Test 14:10:19 [code = INFLUENZA VACCINE] Future Scheduled 2021-06-26 COVID-19 VACCINE (1) Met [facility] Test 14:10:19 [code = COVID-19 VACCINE (1)] Future Scheduled 2021-06-26 DIABETES: RETINAL EYE [facility] Test 14:10:19 EXAM [code = DIABETES: RETINAL EYE EXAM] Future Scheduled 2021-06-26 DIABETIC FOOT EXAM [facility] Test 14:10:19 [code = DIABETIC FOOT EXAM] Future Scheduled 2021-06-26 COLONOSCOPY SCREENING [facility] Test 14:10:19 [code = COLONOSCOPY SCREENING] Future Scheduled 2021-06-26 SHINGLES VACCINES (#1) [facility] Test 14:10:19 [code = SHINGLES VACCINES (#1)] Future Scheduled 2021-06-26 [facility] Test 14:10:19 SCREENING [code = BREAST CANCER SCREENING] Future Scheduled 2021-06-26 [facility] Test 14:10:19 malignant neoplasm of cervix (procedure) [code = 831345212] Future Scheduled 2021-06-26 INFLUENZA VACCINE [facility] Test 14:10:19 [code = INFLUENZA VACCINE] Future Scheduled 2021-06-26 COVID-19 VACCINE (1) Met [facility] Test 14:10:19 [code = COVID-19 VACCINE (1)] Future Scheduled 2021-06-26 DIABETES: RETINAL EYE [facility] Test 14:10:19 EXAM [code = DIABETES: RETINAL EYE EXAM] Future Scheduled 2021-06-26 DIABETIC FOOT EXAM [facility] Test 14:10:19 [code = DIABETIC FOOT EXAM] Future Scheduled 2021-06-26 COLONOSCOPY SCREENING [facility] Test 14:10:19 [code = COLONOSCOPY SCREENING] Future Scheduled 2021-06-26 SHINGLES VACCINES (#1) [facility] Test 14:10:19 [code = SHINGLES VACCINES (#1)] Future Scheduled 2021-06-26 BREAST CANCER [facility] Test 14:10:19 SCREENING [code = BREAST CANCER SCREENING] Future Scheduled 2021-06-26 [facility] 14:10:19 malignant neoplasm of cervix (procedure) [code = 254154250] Future Scheduled 2021-06-26 INFLUENZA VACCINE [facility] Test 14:10:19 [code = INFLUENZA VACCINE] Future Scheduled 2021-06-26 COVID-19 VACCINE (1) Met [facility] Test 14:10:19 [code = COVID-19 VACCINE (1)] Future Scheduled 2021-06-26 DIABETES: RETINAL EYE [facility] Test 14:10:19 EXAM [code = DIABETES: RETINAL EYE EXAM] Future Scheduled 2021-06-26 DIABETIC FOOT EXAM [facility] Test 14:10:19 [code = DIABETIC FOOT EXAM] Future Scheduled 2021-06-26 COLONOSCOPY SCREENING [facility] Test 14:10:19 [code = COLONOSCOPY SCREENING] Future Scheduled 2021-06-26 SHINGLES VACCINES (#1) [facility] Test 14:10:19 [code = SHINGLES VACCINES (#1)] Future Scheduled 2021-06-26 BREAST CANCER [facility] Test 14:10:19 SCREENING [code = BREAST CANCER SCREENING] Future Scheduled 2021-06-26 [facility] 14:10:19 malignant neoplasm of cervix (procedure) [code = 791138576] Future Scheduled 2021-06-26 INFLUENZA VACCINE [facility] Test 14:10:19 [code = INFLUENZA VACCINE] Future Scheduled 2021-06-26 COVID-19 VACCINE (1) Met [facility] Test 14:10:19 [code = COVID-19 VACCINE (1)] Future Scheduled 2021-06-26 DIABETES: RETINAL EYE [facility] Test 14:10:19 EXAM [code = DIABETES: RETINAL EYE EXAM] Future Scheduled 2021-06-26 DIABETIC FOOT EXAM [facility] Test 14:10:19 [code = DIABETIC FOOT EXAM] Future Scheduled 2021-06-26 [facility] 14:10:19 [code = COLONOSCOPY SCREENING] Future Scheduled 2021-06-26 SHINGLES VACCINES (#1) [facility] Test 14:10:19 [code = SHINGLES VACCINES (#1)] Future Scheduled 2021-06-26 BREAST CANCER [facility] Test 14:10:19 SCREENING [code = BREAST CANCER SCREENING] Future Scheduled 2021-06-26 [facility] 14:10:19 malignant neoplasm of cervix (procedure) [code = 009184211] Future Scheduled 2021-06-26 INFLUENZA VACCINE [facility] Test 14:10:19 [code = INFLUENZA VACCINE] Future Scheduled 2021-06-26 COVID-19 VACCINE (1) Met [facility] Test 14:10:19 [code = COVID-19 VACCINE (1)] Future Scheduled 2021-06-26 DIABETES: RETINAL EYE [facility] Test 14:10:19 EXAM [code = DIABETES: RETINAL EYE EXAM] Future Scheduled 2021-06-26 DIABETIC FOOT EXAM [facility] Test 14:10:19 [code = DIABETIC FOOT EXAM] Future Scheduled 2021-06-26 COLONOSCOPY SCREENING [facility] Test 14:10:19 [code = COLONOSCOPY SCREENING] Future Scheduled 2021-06-26 SHINGLES VACCINES (#1) [facility] Test 14:10:19 [code = SHINGLES VACCINES (#1)] Future Scheduled 2021-06-26 BREAST CANCER [facility] Test 14:10:19 SCREENING [code = BREAST CANCER SCREENING] Future Scheduled 2021-06-26 [facility] Test 14:10:19 malignant neoplasm of cervix (procedure) [code = 200130079] Future Scheduled 2021-06-26 INFLUENZA VACCINE [facility] Test 14:10:19 [code = INFLUENZA VACCINE] Future Scheduled 2021-06-26 COVID-19 VACCINE (1) Met [facility] Test 14:10:19 [code = COVID-19 VACCINE (1)] Future Scheduled 2021-06-26 DIABETES: RETINAL EYE [facility] Test 14:10:19 EXAM [code = DIABETES: RETINAL EYE EXAM] Future Scheduled 2021-06-26 DIABETIC FOOT EXAM [facility] Test 14:10:19 [code = DIABETIC FOOT EXAM] Future Scheduled 2021-06-26 COLONOSCOPY SCREENING [facility] Test 14:10:19 [code = COLONOSCOPY SCREENING] Future Scheduled 2021-06-26 SHINGLES VACCINES (#1) [facility] Test 14:10:19 [code = SHINGLES VACCINES (#1)] Future Scheduled 2021-06-26 BREAST CANCER [facility] Test 14:10:19 SCREENING [code = BREAST CANCER SCREENING] Future Scheduled 2021-06-26 [facility] 14:10:19 malignant neoplasm of cervix (procedure) [code = 680093871] Future Scheduled 2021-06-26 INFLUENZA VACCINE [facility] Test 14:10:19 [code = INFLUENZA VACCINE] Future Scheduled 2021-06-26 COVID-19 VACCINE (1) Met [facility] Test 14:10:19 [code = COVID-19 VACCINE (1)] Future Scheduled 2021-06-26 DIABETES: RETINAL EYE [facility] Test 14:10:19 EXAM [code = DIABETES: RETINAL EYE EXAM] Future Scheduled 2021-06-26 DIABETIC FOOT EXAM [facility] Test 14:10:19 [code = DIABETIC FOOT EXAM] Future Scheduled 2021-06-26 COLONOSCOPY SCREENING [facility] Test 14:10:19 [code = COLONOSCOPY SCREENING] Future Scheduled 2021-06-26 SHINGLES VACCINES (#1) [facility] Test 14:10:19 [code = SHINGLES VACCINES (#1)] Future Scheduled 2021-06-26 BRE[facility] CANCER [facility] Test 14:10:19 SCREENING [code = BREAST CANCER SCREENING] Future Scheduled 2021-06-26 [facility] 14:10:19 malignant neoplasm of cervix (procedure) [code = 180570307] Future Scheduled 2021-06-26 INFLUENZA VACCINE [facility] Test 14:10:19 [code = INFLUENZA VACCINE] Future Scheduled 2021-06-26 COVID-19 VACCINE (1) Met [facility] Test 14:10:19 [code = COVID-19 VACCINE (1)] Future Scheduled 2021-06-26 DIABETES: RETINAL EYE [facility] Test 14:10:19 EXAM [code = DIABETES: RETINAL EYE EXAM] Future Scheduled 2021-06-26 DIABETIC FOOT EXAM [facility] Test 14:10:19 [code = DIABETIC FOOT EXAM] Future Scheduled 2021-06-26 COLONOSCOPY SCREENING [facility] Test 14:10:19 [code = COLONOSCOPY SCREENING] Future Scheduled 2021-06-26 SHINGLES VACCINES (#1) [facility] Test 14:10:19 [code = SHINGLES VACCINES (#1)] Future Scheduled 2021-06-26 [facility] SCREENING [code = BREAST CANCER SCREENING] Future Scheduled 2021-06-26 [facility] 14:10:19 malignant neoplasm of cervix (procedure) [code = 585270616] Future Scheduled 2021-06-26 INFLUENZA VACCINE [facility] Test 14:10:19 [code = INFLUENZA VACCINE] Future Scheduled 2021-06-[address] [facility] 00:[facility]:00 (procedure) [code = [facility] 44761892] Future Scheduled 2021-06-[address] [facility] Test 00:00:00 (procedure) [code = [facility] 68541916] Future Scheduled 2021-06-[address] [facility] Test 00:00:00 (procedure) [code = [facility] 28472033] Future Scheduled 2021-06-[address] [facility] 00:00:00 (procedure) [code = [facility] 30818976] Future Scheduled 2021-06-[address] [facility] 00:00:00 (procedure) [code = [facility] 16197646] Future Scheduled 2021-06-[address] [facility] 00:00:00 (procedure) [code = [facility] 64468469] Future Scheduled 2021-06-[address] [facility] 00:00:00 (procedure) [code = [facility] 91474733] Future Scheduled 2021-06-[address] [facility] 00:00:00 (procedure) [code = [facility] 49387350] Future Scheduled 2021-06-[address] [facility] 00:00:00 (procedure) [code = [facility] 87116612] Future Scheduled 2021-06-[address] [facility] Test 00:00:00 (procedure) [code = [facility] 31149823] Future Scheduled 2021-06-[address] [facility] 00:00:00 (procedure) [code = [facility] 92273795] Future Scheduled 2021-06-[address] [facility] 00:00:00 (procedure) [code = [facility] 35311002] Future Scheduled 2021-06-10 COVID-19 VACCINE (1) Met [facility] Test 17:58:22 [code = COVID-19 VACCINE (1)] Future Scheduled 2021-06-10 DIABETES: RETINAL EYE [facility] Test 17:58:22 EXAM [code = DIABETES: RETINAL EYE EXAM] Future Scheduled 2021-06-10 DIABETIC FOOT EXAM [facility] Test 17:58:22 [code = DIABETIC FOOT EXAM] Future Scheduled 2021-06-10 COLONOSCOPY SCREENING [facility] Test 17:58:22 [code = COLONOSCOPY SCREENING] Future Scheduled 2021-06-10 SHINGLES VACCINES (#1) [facility] Test 17:58:22 [code = SHINGLES VACCINES (#1)] Future Scheduled 2021-06-10 BREAST CANCER [facility] Test 17:58:22 SCREENING [code = BREAST CANCER SCREENING] Future Scheduled 2021-06-10 Screening [facility] Test 17:58:22 malignant neoplasm of cervix (procedure) [code = 880560088] Future Scheduled 2021-06-10 INFLUENZA VACCINE Method [facility] Test 17:58:22 [code = INFLUENZA VACCINE] Future Scheduled 2021-05-12 COVID-19 VACCINE (1) Met [facility] Test 00:12:28 [code = COVID-19 VACCINE (1)] Future Scheduled 2021-05-12 DIABETES: RETINAL EYE [facility] Test 00:12:28 EXAM [code = DIABETES: RETINAL EYE EXAM] Future Scheduled 2021-05-12 DIABETIC FOOT EXAM [facility] Test 00:12:28 [code = DIABETIC FOOT EXAM] Future Scheduled 2021-05-12 COLONOSCOPY SCREENING [facility] Test 00:12:28 [code = COLONOSCOPY SCREENING] Future Scheduled 2021-05-12 SHINGLES VACCINES (#1) [facility] Test 00:12:28 [code = SHINGLES VACCINES (#1)] Future Scheduled 2021-05-12 BREAST CANCER [facility] Test 00:12:28 SCREENING [code = BREAST CANCER SCREENING] Future Scheduled 2021-05-12 [facility] Test 00:12:28 malignant neoplasm of cervix (procedure) [code = 804498163] Future Scheduled 2021-05-12 INFLUENZA VACCINE [facility] Test 00:12:28 [code = INFLUENZA VACCINE] [...] Future Scheduled 2021-02-11 COVID-19 [facility]ACCINE (1[facility] 13:55:42 [code = COVID-19 VACCINE (1)] Future Scheduled 2021-02-11 DIABETES: RETINAL EYE [facility] Test 13:55:42 EXAM [code = DIABETES: RETINAL EYE EXAM] Future Scheduled 2021-02-11 DIABETIC FOOT EXAM [facility] Test 13:55:42 [code = DIABETIC FOOT EXAM] Future Scheduled 2021-02-11 COLONOSCOPY SCREENING [facility] Test 13:55:42 [code = COLONOSCOPY SCREENING] Future Scheduled 2021-02-11 SHINGLES VACCINES (#1) [facility] Test 13:55:42 [code = SHINGLES VACCINES (#1)] Future Scheduled 2021-02-11 BREAST CANCER [facility] Test 13:55:42 SCREENING [code = BREAST CANCER SCREENING] Future Scheduled 2021-02-11 [facility] Test 13:55:42 malignant neoplasm of cervix (procedure) [code = 126993305] Future Scheduled 2021-02-11 INFLUENZA VACCINE [facility] Test 13:55:42 [code = INFLUENZA VACCINE] [...] 00:00:00 measurement [facility] (procedure[facility] [code = 41681231] Future Scheduled 2020-08-[address] [facility] (procedure) [code = 06510742] Future Scheduled 2020-08-[address] [facility] (procedure) [code = 07227416] Future Scheduled 2020-08-[address] [facility] (procedure) [code = 22011141] Future Scheduled 2020-08-[address] [facility] (procedure) [code = 33264765] Future Scheduled 2020-08-[address] [facility] (procedure) [code = 97030948] Future Scheduled 2020-08-[address] [facility] (procedure) [code = 44681045] Future Scheduled 2020-08-[address] [facility] (procedure) [code = 71768882] Future Scheduled 2020-08-[address] [facility] (procedure) [code = 40151026] Future Scheduled 2020-08-[address] [facility] (procedure) [code = 85129503] Future Scheduled 2020-08-[address] [facility] (procedure) [code = 97019286] Future Scheduled 2020-08-[address] [facility] (procedure) [code = 89535898] Future Scheduled 2019-11-[address] [facility] breast (procedure) [code = 685080448] Future Scheduled 2019-11-[address] [facility] 00:00:00 [facility] breast (procedure) [code = 393400834] Future Scheduled 2019-11-[address] [facility] 00:00:00 [facility] breast (procedure) [code = 867936697] Future Scheduled 2019-11-[address] [facility] 00:00:00 [facility] breast (procedure) [code = 121496644] Future Scheduled 2019-11-[address] [facility] 00:00:00 [facility] breast (procedure) [code = 844010584] Future Scheduled 2019-11-[address] [facility] 00:00:00 [facility] breast (procedure) [code = 463990457] Future Scheduled 2019-11-[address] [facility] 00:00:00 [facility] breast (procedure) [code = 455871572] Future Scheduled 2019-11-[address] [facility] 00:00:00 [facility] breast (procedure) [code = 241027859] Future Scheduled 2019-11-[address] [facility] 00:00:00 [facility] breast (procedure) [code = 882931036] Future Scheduled 2019-11-[address] [facility] 00:00:00 [facility] breast (procedure) [code = 500341486] Future Scheduled 2019-11-[address] [facility] 00:00:00 [facility] breast (procedure) [code = 968252820] Future Scheduled 2019-11-[address] [facility] 00:00:00 malignant neoplasm [facility] breast (procedure) [code = 876456282] Future Scheduled 2018-06-[address] [facility] 00:00:00 examination Medical Center (regime/therapy) [code = 547386787] Future Scheduled 1967-09-05 Urine screening for [facility] 00:00:00 protein (procedure) [facility] Center [code = 376673335] Future Scheduled 1967-09-[address] [facility] 00:00:00 [code = DIABETIC EYE [facility] EXAM] Future Scheduled 1967-09-[address] [facility] (regime/therapy) [code = 138619481] Future Scheduled 1967-09-05 Urine screening for [facility] 00:00:00 protein (procedure) [facility] [code = 503633074] Future Scheduled 1967-09-[address] [facility] 00:00:00 [code = DIABETIC EYE Medical Center EXAM] Future Scheduled 1967-09-[address] [facility] examination [facility] (regime/therapy) [code = 761195328] Future Scheduled 1967-09-05 Urine screening for [facility] 00:00:00 protein (procedure) [facility] [code = 196057066] Future Scheduled 1967-09-[address] EX[address] [facility] 00:00:00 [code = DIABETIC EYE [facility] EXAM] Future Scheduled 1967-09-[address] [facility] 00[facility] examination [facility] (regime/therapy) [code = 447706573] Future Scheduled 1967-09-05 Urine screening for [facility] 00:00:00 protein (procedure) [facility] Center [code = 377109672] Future Scheduled 1967-09-[address] EXAM [facility] 00:00:00 [code = DIABETIC EYE [facility] EXAM] Future Scheduled 1967-09-[address] [facility] 00[facility] examination [facility] (regime/therapy) [code = 175168445] Future Scheduled 1967-09-05 Urine screening for [facility] 00:00:00 protein (procedure) [facility] Center [code = 605503765] Future Scheduled 1967-09-[address] EXAM [facility] 00:00:00 [code = DIABETIC EYE [facility] EXAM] Future Scheduled 1967-09-[address] [facility] 00[facility] examination [facility] (regime/therapy) [code = 826664745] Future Scheduled 1967-09-05 Urine screening for [facility] 00:00:00 protein (procedure) [facility] Center [code = 347305895] Future Scheduled 1967-09-[address] EXAM [facility] 00:00:00 [code = DIABETIC EYE [facility] EXAM] Future Scheduled 1967-09-[address] [facility] 00[facility]00 examination [facility] (regime/therapy) [code = 777925457] Future Scheduled 1967-09-05 Urine screening for [facility] 00:00:00 protein (procedure) [facility] Center [code = 340532332] Future Scheduled 1967-09-[address] EXAM [facility] 00:00:00 [code = DIABETIC EYE [facility] EXAM] Future Scheduled 1967-09-[address] [facility] 00[facility]00 examination [facility] (regime/therapy) [code = 319921933] Future Scheduled 1967-09-05 Urine screening for [facility] 00:00:00 protein (procedure) [facility] Center [code = 755495390] Future Scheduled 1967-09-[address] EXAM [facility] 00:00:00 [code = DIABETIC EYE [facility] EXAM] Future Scheduled 1967-09-[address] [facility] 00:[facility]:00 examination [facility] (regime/therapy) [code = 826794337] Future Scheduled 1967-09-05 Urine screening for [facility] 00:00:00 protein (procedure) [facility] Center [code = 119918697] Future Scheduled 1967-09-[address] EXAM [facility] 00:00:00 [code = DIABETIC EYE [facility] EXAM] Future Scheduled 1967-09-[address] [facility] 00:[facility]:00 examination [facility] (regime/therapy) [code = 997665773] Future Scheduled 1967-09-05 Urine screening for [facility] 00:00:00 protein (procedure) [facility] Center [code = 775084027] Future Scheduled 1967-09-[address] DIAB[address]YE EXAM [facility] 00:00:00 [code = DIABETIC EYE Medical [facility] EXAM] Future Scheduled 1967-09-[address] [facility] 00:[facility]:00 examination [facility] (regime/therapy) [code = 354137652] Future Scheduled 1967-09-05 Urine screening for [facility] 00:00:00 protein (procedure) Medical Center [code = 608090085] Future Scheduled 1967-09-[address] DI[address]YE EXAM [facility] 00:00:00 [code = DIABETIC EYE [facility] EXAM] Future Scheduled 1967-09-[address] [facility] 00:[facility]:00 examination [facility] (regime/therapy) [code = 738234645] Future Scheduled 1967-09-05 Urine screening for [facility] 00:00:00 protein (procedure) Medical Center [code = 037549376] Future Scheduled [address] [facility] 00:00:00 malignant neoplasm [facility] colon (procedure) [code = 010021267] Future Scheduled [address] [facility] 00:00:00 malignant [facility] colon (procedure) [code = 059741146] Future Scheduled [address] [facility] 00:00:00 malignant ne[facility] colon (procedure) [code = 055560649] Future Scheduled [address] [facility] 00:00:00 (combo) [code = CT Medical C enter Colonography (combo)] Future Scheduled [address] [facility] 00:00:00 malignant [facility] colon (procedure) [code = 430828302] Future Scheduled [address] [facility] 00:00:00 malignant [facility] colon (procedure) [code = 554139707] Future Scheduled [address] [facility] 00:00:00 malignant ne[facility] colon (procedure) [code = 879686972] Future Scheduled [address] [facility] 00:00:00 malignant neoplasm [facility] colon (procedure) [code = 617233332] Future Scheduled 1955 [facility]oid[facility] [address] [facility] 00:00:00 (combo) [code = CT Medical C enter Colonography (combo)] Future Scheduled [address] [facility] 00:00:00 malignant neoplasm [facility] colon (procedure) [code = 013383448] Future Scheduled [address] [facility] 00:00:00 malignant neoplasm [facility] colon (procedure) [code = 305605878] Future Scheduled [address] [facility] 00:00:00 malignant neoplasm [facility] colon (procedure) [code = 111307526] Future Scheduled [address] [facility] 00:00:00 malignant neoplasm [facility] colon (procedure) [code = 334418360] Future Scheduled 1957 S[facility]oidoscopy [facility] [address] [facility] 00:00:00 (combo) [code = CT Medical C enter Colonography (combo)] Future Scheduled [address] [facility] 00:00:00 malignant ne[facility] colon (procedure) [code = 184707115] Future Scheduled [address] [facility] 00:00:00 malignant neoplasm [facility] colon (procedure) [code = 161829854] Future Scheduled [address] [facility] 00:00:00 malignant neoplasm [facility] colon (procedure) [code = 293298040] Future Scheduled [address] [facility] 00:00:00 malignant neoplasm [facility] colon (procedure) [code = 603521761] Future Scheduled 1957 S[facility]oidoscopy [facility] [address] [facility] 00:00:00 (combo) [code = CT Medical C enter Colonography (combo)] Future Scheduled [address] [facility] 00:00:00 malignant neoplasm [facility] colon (procedure) [code = 696200283] Future Scheduled [address] [facility] 00:00:00 malignant neoplasm [facility] colon (procedure) [code = 619113070] Future Scheduled [address] [facility] 00:00:00 malignant neoplasm [facility] colon (procedure) [code = 477383336] Future Scheduled [address] [facility] 00:00:00 malignant neoplasm [facility] colon (procedure) [code = 543210701] Future Scheduled 1957 S[facility]oidoscopy [facility] [address] [facility] 00:00:00 (combo) [code = CT Medical C enter Colonography (combo)] Future Scheduled [address] [facility] 00:00:00 malignant ne[facility] colon (procedure) [code = 590109986] Future Scheduled [address] [facility] 00:00:00 malignant neoplasm [facility] colon (procedure) [code = 763763437] Future Scheduled 1957 S[facility]oidoscopy [facility] [address] [facility] 00:00:00 (combo) [code = CT Medical C enter Colonography (combo)] Future Scheduled [address] [facility] 00:00:00 malignant neoplasm [facility] colon (procedure) [code = 038197822] Future Scheduled [address] [facility] 00:00:00 malignant neoplasm [facility] colon (procedure) [code = 652069874] Future Scheduled 1957 [facility]oidoscopy [facility]] [facility] Future Scheduled [address] [facility] 00:00:00 (combo) [code = CT Medical C enter Colonography (combo)] Future Scheduled [address] [facility] 00:00:00 malignant neoplasm [facility] colon (procedure) [code = 559577943] Future Scheduled [address] [facility] 00:00:00 malignant neoplasm [facility] colon (procedure) [code = 094554760] Future Scheduled 1957 [facility]oidoscopy [facility]] Medical Cent[facility] r Future Scheduled [address] [facility] 00:00:00 malignant neoplasm [facility] colon (procedure) [code = 472361366] Future Scheduled [address] [facility] 00:00:00 malignant neoplasm of [facility] colon (procedure) [code = 327400563] Encounters Start End Encounter Admission Attending Care Care Encounter Source Date/Time Date/Time Type Type Clinicians Facility Department ID 2021-07-06 Inpatient EL GUSTABOZaida [facility] Surgery [id number] [facility] 14:33:12 HARSHINIE 2021-07-06 Hospital [facility] [id number] [facility] 00:[facility]:00 Encounter [facility] 2018-09-18 Outpatient [facility] 9600 [facility] 08:26:04 2021-11-27 2021-11-27 Outpatient ROGER KAUR [facility] [id number] Univers 15:00:00 15:00:00 ROGER ARAUJO [id number] [facility] 2021-11-27 2021-11-27 Outpatient ROGER KAUR [facility] [id number] Univers 15:00:00 15:00:00 ROGER ARAUJO zenia [facility] 2021-11-10 2021-11-10 Outpatient ROGER KAUR [facility] [id number] Univers 08:00:00 08:00:00 ROGER ARAUJO ity [facility] 2021-10-21 2021-10-21 Orders Doctor STEARNS [id number] Univers 00:00:00 00:00:00 Only Unassigned, DEEDEE [id number] ity of [facility] [id number] Socrates as [id number] [address] 2021-10-20 2021-10-20 Telephone Alfredo, [facility] [id number] [facility] 00:00:00 00:00:00 Brenda GARCIA [id number] ity [id number] [id number] Ok dical [facility] 2021-08-07 2021-08-07 Outpatient SHASHANK MENDIOLA [facility] [id number] [facility] 00:00:00 00:00:00 NADYA 2021-06-07 2021-07-04 Inpatient LOGAN RUSSO [facility] Surgery [id number] [facility] 19:44:00 14:34:00 2021-07-03 2021-07-[address] [facility] [id number] 15:05:00 16:05:00 [facility] 2021-07-03 2021-07-[address] [facility] [id number] 14:49:00 15:35:00 Event [facility] 2021-06-30 2021-06-[address] [facility] [id number] 19:35:00 22:24:00 [facility] 2021-06-26 2021-06-[address] [facility] [id number] 07:30:00 11:59:00 [facility] 2021-06-25 2021-06-[address] [facility] [id number] 23:59:59 23:59:59 Event Fadia kimi [facility] 2021-06-18 2021-06-[address] [facility] [id number] [facility] 07:58:00 14:52:00 Event Vahid Link [facility] 2021-06-18 2021-06-[address] [facility] [id number] 08:00:00 14:45:00 R [facility] 2021-06-16 2021-06-[address] [facility] [id number] 11:58:00 13:03:00 Event Robert Allen [facility] 2021-06-16 2021-06-[address] [facility] [id number] 10:30:00 12:00:00 [facility] 2021-06-09 2021-06-09 Outpatient [facility] [id number] [facility] 00:00:00 23:59:00 [facility] 2021-06-07 2021-06-07 [facility] [id number] [facility] 19:44:00 23:59:00 [facility] 2021-06-07 2021-06-[address] [facility] [id number] 00:00:00 00:00:00 Only [facility] 2021-06-07 2021-06-07 Travel [facility] [id number] [facility] 00:[facility]00 00:00:00 [facility] 2021-05-26 2021-05-26 Transition DAKOTA Bennett [id number] Univers 00:00:00 00:00:00 of Care Rakan [place] [id number] it [place] of [place] [id number] Anaya tierney [phone] [facility] [address] 2021-05-26 2021-05-[address] [facility] [id number] 00:00:00 00:00:00 [facility] 2021-05-25 2021-05-25 Transition DAKOTA Bennett [id number] Univers 00:00:00 00:00:00 of Care Rakan [place] [id number] it y of [place] 4.2.7.2.686 [facility] [id number] [facility] [address] 2021-05-15 2021-05-22 [facility] Dangelo Ibrahim [facility] [id number] Univers 13:03:00 21:15:00 Encounter Neil Thomas [id number] ity of [place] [id number] [facility] [id number] [facility] [address] 2021-05-15 2021-05-22 Inpatient X WILLIAM [facility] NILESH [id number] Univers 13:03:00 21:15:00 NEIL ity [facility] 2020-08-28 2020-08-[address] [facility] [id number] 00:00:00 00:00:00 Only [facility] 2020-08-28 2020-08-[address] [facility] [id number] 00:00:00 00:00:00 [facility] 2020-08-06 2020-08-[address] [facility] [id number] 00:00:00 00:00:00 [facility] 2020-08-06 2020-08-[address] [facility] [id number] 00:00:00 00:00:00 [facility] 2020-08-06 2020-08-[address] [facility] [id number] 00:00:00 00:00:00 [facility] 2020-08-04 2020-08-[address]ú [address] [facility] [id number] 00:00:00 00:00:00 [facility] 2020-07-28 2020-07-28 Lulú Frazier [facility] [id number] 00:00:00 00:00:00 ion [facility] 2020-07-28 2020-07-28 [facility] [id number] 00:00:00 00:00:00 [facility] 2020-07-25 2020-07-25 Document [facility] [id number] [facility] 00:[facility]00 00:00:00 [facility] 2020-07-24 2020-07-24 [facility] [id number] 00:00:00 00:00:00 [facility] 2020-07-24 2020-07-24 [facility] [id number] 00:00:00 00:00:00 [facility] 2020-07-24 2020-07-24 [facility] [id number] 00:00:00 00:00:00 [facility] 2020-04-16 2020-04-16 Office [facility] [id number] 12:56:21 13:26:21 Visit Pascale Garcia [id number] [place] [id number] [id number] [address] 2019-02-18 2019-02-[address] [id number] [facility] 03:46:00 22:27:00 [facility] 2019-01-26 2019-01-[address] [id number] [facility] 01:39:00 06:10:00 [facility] EMERGENCY DEPT 2018-10-09 2018-10-[address] [id number] Mem[facility] 09:44:00 21:45:00 [facility] [place] Patsy nn 2018-01-22 2018-01-22 Emergency E MHSE MHSE [id number] 16:17:00 16:17:00 [facility] Results Test Description Test Time Test Comments Results Result Comments Source AFB CULTURE + SMEAR (NON-SPUTUM) 2021-08-07 10:55:07 Test Item Value Reference Range Interpretation Comme nts CULTURE (BEAKER) (test code = 1095) No acid-fast bacilli isolated i n 42 days AFB SMEAR (BEAKER) (test code = 994) No acid fast bacilli seen Fungus culture + [id number] 01:03:45 Test Item Value Reference Range Interpretation Comments Result (test code = No fungus isolated in 6463-4) 28 days Fungus Smear (test No fungi seen code = 1406) [facility] [id number] 01:03:45 Test Item Value Reference Range Interpretation Comments Result (test code = No fungus isolated in 6463-4) 28 days Fungus Smear (test No fungi seen code = 1406) [facility] [id number] 01:03:45 Test Item Value Reference Range Interpretation Comments CULTURE (BEAKER) (test No fungus isolated in code = 1095) 28 days FUNGUS SMEAR (BEAKER) No fungi seen (test code = 1406) TISSUE [id number] 12:44:09Surgical Pathology Report Case: [id number] Authorizing Provider: Logan Russo MD Collected: 06/18/2021 11:41 AM Ordering Location: [facility] Received: 06/19/2021 03:44 PM PERIOPERATIVE SERVICES Pathologist: Tom Paige MD Specimen: Mass, MITRAL VALVE MASS- for MICROBIOLOGY then pls send to Pathology Special stains for acid fast bacilli are negative. Gram stain and GMS stain highlightpossible bacterial aggregates. Correlation with microbiological studies is required for further subcl assification. Addendum electronically signed by Tom Paige MD on 07/09/2021 at 12:44 PMA.HEART, MITRAL VALVE, DEBRIDEMENT AND REPAIR:FIBRIN, ACUTE INFLAMMATORY AGGREGATE AND CALCIFICATION.SPECIAL STAINS FOR INFECTIOUS ORGANISMS PENDING, ADDENDUM TO FOLLOW. CORRELATION WITH MICROBIOLOGICAL STUDIES IS RECOMMENDED. Signing Pathologist Direct Phone Line: [phone] signed by Tom Paige MD on 06/24/2021 at 3:29 [id number], [id number] valvePerformed.The interpretation of this case included the use of immunohistochemistry or special stains.PRASHANT ROMERO AND NORMA JOHNSON, AFBControl Slides Examined: In-house known positive controls were evaluated along with the test tissue. These control slides run alongside of the patients sample show appropriate staining. Internal positive and negative controls when available are evaluated Immunohistochemistry technical testing was performed at [facility], Pathology Laboratory where it was developed and its performance characteristics were determined. It has not been cleared or approved by theU.S. Food and Drug Administration. The FDA has determined that such clearance or approval is not necessary. The test is used for clinical purposes. It should not be regarded as investigational or for re search. This laboratory is certified under the Clinical Laboratory Improvement Amendments of 1988 (CLIA-88) as qualified to perform high complexity clinical laboratory testing.[facility], Department of Pathology, [address] [place] [address], [facility] [address] [place] [address], [facility], [address] [place] [address], a. Received in formalin labeled with the patient's information and "mitral valve mass" is a 1.5 cm in length by 0.3 cm in diameter robert-pink tissue, which is submitted in toto in cassette A1.MP (resident)Tissue [id number] 09:50:09 Test Item Value Reference Range Interpretation Comments Case Report (test code Surgical Pathology = 104) Report Case: [id number] Authorizing Provider: Angela Loco Collected: 07/03/2021 03:04 PM MD Brian Ordering Location: [address] Received: 07/06/2021 09:08 AM Service Pathologist: [...] clip x 1 DIAGNOSIS (test code = f0kpoKZeGJXpr8ccHGSnrV 3220) FuZzEwMzNcZnRuYmpcdWMx IHtccnRmMVxlcGljOTYwMV euaiZhQWPkoHAzP6Ozoqvq HRooUG3hGI0omMgfjJHghJ BcPQAiLaRlz0imp790tVSx x1ohAAEKqsjahZh2xQphA7 5fr1G1NvveK85djUSwACE8 CLQdNEMykHGvIIIaZKO7UK TomEFjJ9ubBPLnVQ9kspat ISwfJQibGJTqrUP1UUOlxI NmD6FqGWZaLXdvNFSxhlp3 JiMqHe3wuSLhgAvqLBvsJM KaHUEmPKutRLLwGhUkGG6d H31XB23fCMGCA8FCDWSDEW tNKYGJOE5ZN8m3SBHspwKk LSAgVFVCVUxBUiBBREVOT0 4UFWFjomlpBGQfSn3dP92K A19nHAVWT6xMJ5DRR6RFLP mQCaMPJ2eVKGgoHlcAFJLQ ZogvKMOmAY0tMY5GIKJQPN dSBJXCKFwOYU4DBwYFIxHZ OZXYBYHKGQEQOM2ZPLVbjP FyICAtICBORUdBVElWRSBG N0BgAZeURJ9OJlBUJTXGZG XHKUAHOGMkU0CvAGLAOToD ZQ2EDUoxJQWlsBQnGRZsDG RKNX5TFAYPZOfMHX1TU1ZW JcDMXxcaRQ4DRLOeAYGOB9 BTWTpccGFyICAtICBNVUxU SVBMRSBGUkFHTUVOVFMgT0 LtZCZDJUyNDkHSKCHWY50E XHBhciAgLSAgTkVHQVRJVk BcQj5MTSeRG6pmK3JBEMAd ZMmGDQdXS9lMIV0ICH5FPM dHKuYKM8mrcOOvTYRxabSj mOTyTLBvCMPUTP9LSIAUZp MPI7DNIjTOQVFIDObASHSY JE6ZL7b6RZWexyXbXOZxLU VEZDfLEUHzMkIZY11EVyKW TV8PVXGAItBKPXTrJFIZGd 5EQRsxCHGyEG2rAQ6AA6PL SVZFIEZPUiBISUdILUdSQU DSEOROG8ENPXOKIPWTInAJ JDiCB25KLwKWTUFizy36NK E4JuUwv6B1VRF5IAXwIMDm h4emDZFilHWzQpBpFnCzKf InUyvbqSEtSXSdPuAet9bh g914wSIuq0ajVOFsOhV7fJ ItNLYcjSTxM716JJZfKJpm m7gdp4MxNFQxyUKzj1C2SH FCindskFa3cFplR52rp6M3 SmmaL6acLVCvWCPhJ1GcQR 9sCRHiTlz2AZZ8RZU5POSs KPJtP1HuBW5qLKObkBRqTL w9b8tuiGoyWDVfBGO6l9mj IVjgbxPuOP9fxy3evLj7p3 xjczEgRGVmYXVsdCBQYXJh D7WvsTbpPt2ecPw0qGepEz ocSJM5Ztr3PE7sdo41dkf2 zJziSBGvbyytCcY1VSmaVL DfcaayAHh6DKguHVJyxZF6 NJGpyOGnN3IuQQMrEK4isy s8RWE9KJjdUJRzBaH1AGKv wCVzYTHrcIxeFVdkd763LF J2KqBoBB1sP7Oec2W5jA8f aXRcZGVmdGFiNzIwXGZvcm 0ufMGfBKslb1BsQQP3dcG4 kKQnqGWgHKVaXoF0FUumDO 3nld32RKPpLFI5wb5qzEPn eQrxnxQabAHuWHmnP4GmUI Tum166OPGmQ9TiVZEpy7T8 kcYwXjEvDLOxmNK0koE8GA HlNT9xrblqo4dtSQqoORwg HTSphcQ1apF1YFYqaERgE8 YoeU7aWPTvPT6cshvih9pg BUN0UFjqFRNaHNS4NyHkPU Pdn9Brjsl1JvBbz2JaeUEz MPmsK55xx162TZVojdMoU0 xwbGFpblxwbGFpblxmMFxm lsP0QTYcHRfrcuymOUMuLB mdT0ycHoPdKSEdyToyTPyf n3DkEOJbKAEyLeSpcYQsHJ ReHse0BXOuaMNpDPRzFlZj H1gvdvxzXnVCXRJdz4uwC1 fphSDPjPOrF1RiRBfgpkIw DDtvBQssSTLxAOL6KN0tKA UyXRElvb34 CPT Code(s) (test code r6magKEoKHWczGH1QwQeLL = 3357) Kbi1qxx9FwcLKzzRIxBBrh tYFtwdWtfc69aIT0nO41SX 1pLOQtYkS6SVQyvzI0Aid7 PHOuZAYxtTYyW283o6ass9 hhwsUlhDB4vWocLKEpzooh YyE6ETstDCKwascqXMg6PH znGQMshFH6PPYybDSnE8Xa KURyIX8doux2TYB0AMnyCF FiDtN5BNGpdSKrNSQlkHpd NRnwj645NSU6EiQxXDSkbe FbmQrxiO1qNqZwFWS5BMAx TWi2IKAdgd6= CLINICAL HISTORY (test r0xqsSTjCIRjnVA3OrTeCZ code = 3356) Fzz2sht6UqnUYtzLUhNVsg dWRzmbWkhp47tQK7bS18FB 0eIVHpTrX4BQZwqdD4Mud2 ONYsDGTtmFSuN093r4fkn5 qipnYmfGH2MXLhGKDtU3Fs VB2qPRLstHEgV97siIZuFB T2MXBlRIGblDOqSPWxUPR4 MDEfcXHfK9uxYXAvUL3enx rcZBvyDNrgELRkdDV9OPBj nLFxV9SfDPSaDZckQNGuug f3SqWxBa8lkDVkxGmsNAud YXJkXHJpMVxwbGFpblxmcz AhWGDfKCTEsi3hUZEiIjpf sVLsD7wiKF8rgMszOQY7sn PoLFLbLsauTVJfrz3eGRQd OvicjMYoK5otXB1jzXtqXF D4rHFtGGNhrj1= GROSS DESCRIPTION (test h9mpeYBnZJFthTULKMMzBa code = [id number]) ujkfFhWCLhuYOpA8Dbaxql WKitKP5pDC1yzSlsfMFjxC JvEU3ITPKbWdJyAOXewVYx mdVoBwUtXLQwaULpbSH6AP BiQM6ywfidOHmcUHfjLEJd maF4NNFmtBEfS4WtTJIbYJ 3ljezqRQP1OWpvyP2rvdUJ DqwyFg5cpAUreLxfJtHoWr NoYXJzZXQwXGZuaWwgQXJp MGy1gD8IGgxjC14dc8V7Dj u3VVXhCPOyW3QnBW7fSPNt uDVhX39TRzwxBNT7KYWIKg poRWFmPS8Me4mjUQTltJLt SZH0JMjdlJPsAZExLQQiWG c9EEMvQPzimJEvWF2wvQfv JvykfFths8IvxHBiGHrzMK ZqFRNmAKrlWDUuAO9TQlVg MZyTUhveSTucWaP9ARb7IO YOZzHdQkLlMydyGUD4TMem WHj3RIi3WQaYRsM3PKG2BE LbTMnzOYZjWrfeJXc3SWUf XFxmIEFyaWFsIFxcZmwgXF fgX71kcJtopX6sLE2bJL9h xEWdPIGiuT9jID4bR7JjgI 0uXHBhciANClxlcGljTmVz dERvYzEgDQpcbHRycGFyXG xpbjBccmluMCANClxsdHJj aFxjZjFcZnMyMCBSZWNlaX EnLFMemxAbg9DxMKnrfiZd YWJlbGVkIHdpdGggdGhlIH AddZxvunExM6P8pjKyOA5z SPYzOPRhV7ZsHHEcH63oDA CdhB6hNBLcIG0bWPx9KCYv USRpNjqwvD9nyGWfFYTkcC 9gZKBeG5AhUbKwm29acIJ0 upDmYoDnQQLyag0xlR8jCM Sxot4iQZYgp3C8TPUax0B0 CVHeRC82PLpyTZ4sGUnsGT 4xIGNtLCAwLjYgeCAwLjMg uTMsRxJdS91uSjIyMIsdVD HvHLUfnNWuFUfyXRU9Tg3x yEYsJIQopbC3t3GmWRoyOZ QjHrzpRJLzMLgldQQaNU9B HLVgBZbwcfBhQI0EAFUvYU tqDNWwaCQPZSB0XD4uGOyu sXNctuqjNFFwE5ScY8Yxls KpsNTrIVYsiyNic9zpBBQ0 XHNsbXVsdDBcZnMxNlxwYX A3CFs4CPgaMJWdX2ShE6Sa TWmeZML1LZSsPbHcANMmEY RITmGcEyYnVtV1Qsb0TsRd XAj0WPnbB4JRHSMaMZO8JV Q4XUW8GcF5OKj3AXPRYj2u MTUzDLO3PwI7XIN7VaM4ND xcdCAyIFxcZiBBcmlhbCBc IVLtDLwbyjJ9IRUeCBZeeX kdrG6jCh2tUY4ktSBoUYKu nF4tQY2xYjsiiZYtJIWwVK 3lhU1lJbfjBEQnIFyaZJEt X62dc8RGa6TaVE5AJEp9vx EoibgwyF9eRRRshsKiEHbv mYVlY9mdA0TfDJUpQpNkVd ExMQs2UMBpqJ0tTh1jtCWk rU1ozMMnMZriVNM3xARuFM YpJVPeFALcZD44EQkJETVz bmFtZSwgbWVkaWNhbCByZW NvcmQgbnVtYmVyIGFuZCBc jOskWnMnLZm2S9BwhDgvNH Gtp1lrpn9yfYuufMSie5Cs sjDsvqbmVDYuQCUmz70diI O3sxKjBcFypLz9jJFkHGD7 HD2fwGmvdkjleRErKAe3lQ CtPJAyOnIfwOlhp9QbORgv LjQgeCAyLjEgeCAwLjQgY2 5jjP2cENgmdsRhWTZsWR6k VGOmAFGhgMUruW0bxpHtpn LttFJucQZ0HFGglA8rxX62 evMmgvALVL6hjUDuEQ8GSM BhciANClxjZjBcZnMyMiAN ClxwbGFpblxlcGljTmVzdE MiJpDpwFxoiC31RKNidSUx HGS4HB6iPHUwkandHRQhMC ZfMDN0JUqzuH96zHAgBDFa TYJvuTAsdL8Ig2bvFTGmtQ IfOXU9ZWjsnRZfURXjXGSu HJqcMaDeM5YHQGCwZxDfAH K2BDSmBRi9OTh0SU6ROvPe NCLwBKAaYqG6JTRrNMj9CK lnSH6TVEB2Txq2FFT7ANL3 NTMyOCBcXHQgMiBcXGYgQX ByJOqsPOmqoOUjWT4ivPdr xlI1YXGgONpjCTZpRIPqhG hyBOFAo6sbrhUqLFBoJ8w7 Z0VsO1VoMTdvYu7qgCRrLQ 3QEJVlnBORRON3TB1aYEFH ClxsdHJwYXJcbGluMFxyaW 3tTZ4IPCu8xrDzJIYeBRno zgXaSIWtA6KqjrDrGHnzMA Pujr8mgCudZSofAuWrWKJg i1l7mNY7fHAxxQT7lNFciI svYwDzQA0rwVNgFA1jDCkg PUmnwgLfk2DqDO81tWVchf EgqrEbWRI9YuDjPGxdTDEk p6k7gYdvN24jb81pyjqsvH BmUQCdFJ0fsC0iIcKhnwBh G87zx3xhfYZmo6AloBUhnE lwbGUgdGFuLXBpbmssIHBl UJBiH6PrKEEyHYCwk4U9XG Ylr8T3TUKnTa33MTyzNo3p KGizLX25QNSdCAswMVRcM7 OqZ0W6VRmsYZFDxCYfa5Pk K2ciWQ4ywLPxr4BcsUi0rA GgHEdlRBBybU9zjU0vIzQs XHBhciANClxwYXIgDQpcY2 NiCICrGxFzSAhxqLrczJ5z SSYeW19ur3IZk6EeTNOkMB zmj0edgFgoh2JlqYCrOXhg UTIvpLCaSFqkfP6xIvZih8 iqdYd9GGdtdkU5DSOahd0A TratTnngkRaqv8DkuZWxIP xjHWMwNRZcEKmtDPEaMK7P VqChLSyXNbeuVIdcWyK6DS a9KAPORoWmOgEhGdstAHC0 XrBzBWs3ITo0BTgLAoS3NH W4PIHoEnWmMEGnNihbFOj7 IDIgXFxmIEFyaWFsIFxcZm jfZKwsT93xJiFpJmzslYAc ihMSDdHJw9f6qZroB53vb0 1mDQGUkoMso4AoycZhMsnt VENmDWwzQAFwQ87de1SSg8 NeBV0EKWz8pqObiarnkS5y HIExuqDkZOibfYCnW9tkD5 KgLBGjNdHxYbGqQNt3HWSa dN3cTc7vpFKvwB5ywJToXS vdXQU4zCFgJJIyXHZgLXUi PS58QLxUDRGgopTpZQpcfT VkaWNhbCByZWNvcmQgbnVt YmVyIGFuZCBcdTgyMjAgXC b9T9JtuKzdFEAlh8lzak37 rrBkl2OfkjMmJVZeqBMjGZ 4jFqroeV51ACCxFSEuZJXc jXxhUKcsWzGentDuW85lg4 tutQLpa4DofMHxvDmofOAv dGFuLXBpbmssIHBlZHVuY3 XtXAShDAFwu3F9PNZff3W5 JXBgIr8vVCjxKq1oOAipKD 59FQKkOXxoAFPmY3UpR2L2 VTvbWROZfWCoj1QkD2rcQF 1jxCZye2GebCn6oAGlNWuq CTHxsS1hfR8aAHDwAGByJK WxsoNCMjikBWCnPPiQc4Mm rVuxAEQrH6u4w78tR9bpjP GdOPFHFPJ0eYMaceVpbQQu IK6CYMYlbvNNPehsDlRuTn MyMiANClxwbGFpblxlcGlj ZzByzVKbCkJinPvfaU32BM UyrORgJTV3IC8kMBQtxopj OSNjETUaJPT6LYzmsS85lB QsGQNaWZJykOWogS2NTBWw PJY4FBudsP20nKRaDV0SVP FhVTV7UHHauNMcKJC9JA2w fQ0KfQ== MICROSCOPIC DESCRIPTION w0bicGEbQHWavQD6QiLdEF (test code = 3371) Nyr4fon3OyyEYehXYxEMnk iXHpjyUysa18vGR9wK67SC 7jVUGjGyN4LTYxzwX5Xpl1 IHNlOIKggRBpY025h4dbv1 xlytSiwOO5fUvnVKHjpkjn RrF8NRpeLEKnjbdsTTe3TO ctYHMmzMB0CEEneLGvZ4Cl AKYsPU5mzav2SNH8NTezVM GoOlP4IVKgtFMwDVObuEiz POqib581NEM4PlHvOZYhgl AswLqyoR9zZzIwWQLEVUTi p3OwNSSkDCTxfkpqDUZpUG Bhcn0= [facility]issue [id number] 09:50:09 Test Item Value Reference Range Interpretation Comments Case Report (test code Surgical Pathology = 104) Report Case: [id number] Authorizing Provider: Angela Loco Collected: 07/03/2021 03:04 PM MD Brian Ordering Location: [address] Received: 07/06/2021 09:08 AM Service Pathologist: [...] clip x 1 DIAGNOSIS (test code = [id number] 3220) FuZzEwMzNcZnRuYmpcdWMx IHtccnRmMVxlcGljOTYwMV wqvbIcCFSifKKiF0Begpqm LRkhIP1uEY3oiRcxgIEeuQ YsJWKdOiPxq1jcs463jCXw l9lsKGMNsjsvsQz3rAcdF5 3qt2M2QaerG16irRYfGXN1 ZZQnGHEhpXYcKAXnPVU9ZJ KdwEGiO4xgJNWqOW3qdvup OHviFPedOGXdoAL0QPFswP QjT3IoLLFrUKkzTFDducg5 WaZqVv3wrJCnzGxoTGfaFZ VmVPWeZCvsKMBbCjUzRU0h V14RJ80tAQLKC4LANPPDDV zJUMYYNP2WM9y4FNJqluMy LSAgVFVCVUxBUiBBREVOT0 7IVAGjjsckGRXwSy1vW75L N72mRBNEN4dKE6YWB4ARVZ aRBjXPA4pHYYmpGhgUFZRD EoseWZFeHF7yKK7PUGXBEU vVWXFKGOqANB1PQeNYLlAW ODCVKLFVXNXDDT2PQRSlxZ FyICAtICBORUdBVElWRSBG X3QwBNdZLP7WCnERWTVFZG AWTKUSLYDoT4AuIJBPWTgG TS6VYDjrQGAwcVTpRZYwOI OJST1IQJJPMMtBBM0TJ5CA UaPHPkxyTJ5SCLTrCHAQL6 BTWTpccGFyICAtICBNVUxU SVBMRSBGUkFHTUVOVFMgT0 GkOSXCLVpUUaIZTXUVW35L XHBhciAgLSAgTkVHQVRJVk OjKy7RZUuJG1laU2MMFZIy QOsUHUyYY4nCQL8YCX9FDF yDTiNYO9nthPGnVYCznuXz xPMcOKLhHFUCXS0SJGIRZg ZJW1EWJgSHIPUYKSsFGBJG ZS9BT3v7HWGymjPuVFTpJZ GEZTjKABOeVbCLE65LGzBP LD0AYAKCAoJXTMCpTHDQTm 9UEWmlHYSbYA0eZG1AB0PQ SVZFIEZPUiBISUdILUdSQU GNBJBAI5YGCWFBYXFPGeNQ LJpLQ61SKcKCMYGnoe49II F8DjKbr1Q9QBG9DMYpVEEw b4hnDZWawCKqNmBfZoJbIo HsLmaioXXvPOVvIiRjy0fa c238yKHap6tlKMWiWuJ4nB EtYYHccPYgO951EVQtECnp g2iyv4WfRWWdeQUes8H8OU ZFzoyviNn9uKgyT90yc6M4 DaesP5jqZXBfMFItE5GgFR 6kOEHpJqo2BZA2MRT9FVWe FVYkM8UmWD6tDHCdnNRtZX c4f0ddtGulTYNkLEU0y4hk OQueyiBcZM4daf8csJz1e4 xjczEgRGVmYXVsdCBQYXJh S9ViyEnfFs9jmNu3gSjaPq unUDN8Mzb1XB1zsf31beg6 aTnfMPInldqoHvM8FBqwYC CkgwjkOIa9KNhrXUStbQB7 ZRNfoLZxB6KuSTItZL2ydt u1XFF7WTmeKGZkRxO1SNVz kDRoASVmdCywSArdv639PI Y4KpOnOY8wD2Ame8T1rO2z aXRcZGVmdGFiNzIwXGZvcm 6bvVCmNEazn8LaFJC3isF0 cDXwoPDzLGMoCiY3GNyzMH 4zju24VTGtWPX7sx2taXDq bQxgutMctQWhAUupS5EwTP Hpd191AKLkP3YfGQEsu7R0 zdQvThLbSGSegRK1ozC5OO OzLD1zqqcnp9woBJpbLNjp FQKnwtC2eeN7UCUpeZIuR9 DyyE5uIZWhMS8pbxjvl8ig RMB3AFxqNYScLXM0HcVcEM Ahx5Efxqm6EpNth5EkqZBm JNpoF26ot035OHZofoGsL0 xwbGFpblxwbGFpblxmMFxm tdD1DHMbKXvrunqaIGLdRT ssY1moVoDnVMWpiAntQKsb z5AnSYHpGCMqEiLikAGdPV LyGhj0OYIdaCJyVJWiZsVt Z1rgheigAwGXFFMqs6zcK6 lxdFAWkZFpJ0SlWAlzqgFm TBniICegTWNvSOH5AG8xHO VpJTKyob69 CPT Code(s) (test code h5vcuDYpPIXdnGM8NiAdAK = 3359) Gec7kol0SbfLYhfBFeTCbi eVOdgtTnld67nCI4eK81JQ 3lCWKnNxA0OWLsfkB3Krx4 KVYmZJWfbOJzZ919o7knx3 btztYmjER3sBwwGOAformt XoX1KZntFSZovffnFMk5GL tyOXOvaPM7CIHxfIWjF8Ez WQMeJY6eqhg5VOA8WClrEM EbVnH9STKxcJTzXIJykMsm AXole390QLL9IhAtWLMozx MhzJllrU9xXnWrOUY8QCFe UAo2IRNuta1= CLINICAL HISTORY (test b3dfrLWdUIMjbJZ5EjXbQC code = 3356) Lic6etw6CqwUZgjSDxNIje gIUzsgHndn25iPH7yZ45PP 8sBBGcWqC7UGKlzdX0Hxt2 TSVoUBRkuNWmP793s8lio7 bipoXobBG4MQMgUEAhU3Hv KR9fLYFwuATpN69eeKNcCB E9EOKxUZZmxEChSFRiCOD5 FTAzkCCoS8kwPJYhQZ5kzw spZEzqOZenPJWodVL0JLPa kHHxO5LdBULdFUnyHVCunz x4QhQkIi6gbMXeqIbwDXtq YXJkXHJpMVxwbGFpblxmcz QmGDEtXJXLfj1kPMNeYjqd vHOdO9wvAF2ndPriXCH9io AyOMDdRosjRVFhgp2cVMMi GfkrhNFdJ4mkBI4nrZzwJA D6zVHrSOJdey2= GROSS DESCRIPTION (test b8ntyPJjLYLalJLSRWBbYy code = [id number]) nmycRlVRPvgFQgR7Mtmjbf PHlaYV9qJI4mtRumcOQytZ WzYZ3OEQPoCoFqNHLpxSEx ehLuSeVjAXGflOCmvAB9KR HvWV4yjypuOLipUXjaEWRs ztR6EMYyyNGmN4SxDZLdCD 9jyiitVQA3LCxyrW9ghuNK HiwjMf6zqYOwfIqpJoFmUc NoYXJzZXQwXGZuaWwgQXJp HJo4wV5MDvoaQ16hk1S3Rg z9JWWpFTZeY6FuMW4qGWZy zCFgU88AZptiUTY9LWKWHl vrFYSgCL4Xv2rqDQYycQCl CZO6SSwlzJZoJTGzTEZrYA c7SQMkTQipaXDfDW9skTsp KqekwKnnt4XknJCkIDdnIP EdLRBiDApxPKLlLX3LTlXt GBsCLpmlCTcjZwM2FQu2HQ JLBdXuYsPgKtwtLJZ4QGih MAk6WRv6GXePYgJ8HAY9BC HqYKlrLZFtKmerXXx0JPIm XFxmIEFyaWFsIFxcZmwgXF coX70ogBqkeX4vLD8eFT8x pTCzWFCotD6wSV8qM7GnuP 0uXHBhciANClxlcGljTmVz dERvYzEgDQpcbHRycGFyXG xpbjBccmluMCANClxsdHJj aFxjZjFcZnMyMCBSZWNlaX XeQUMntnUcq5CwKQkxctRl YWJlbGVkIHdpdGggdGhlIH OeoNyhxvWoG9Q2goNqEI6c TLAqZNXwT6PmSUHdP15iBS CmmJ7wRFSxJP3sJIr5ZPKp JSAkJvtyrC3ggBCqIEEqjY 6oFLEeB8EoEtKcc57tvQO4 aaLcXuJxPXBueg2dfU6gZG Ywsi5tWLEtl5Y4GIJmw7O0 VLJxGD05XJfiVH7tIQwcKP 4xIGNtLCAwLjYgeCAwLjMg zDJqHpJiS51uAtDrFFyzUB SqCDGqrVTwZTmvDLJ5Ym0e gRSgHDCtbaT5r0TmRAlaMW OeSiplFPFsVWganNElLA8T PUGxUJacxzAdSL4PFRDzQO mxJPEbaRFXOZM0IL7hDLhj qLDyjaawXLXwP3KiX6Tepf SgcCFlFWCrhbDqt3zvSLW6 XHNsbXVsdDBcZnMxNlxwYX W3BEs7EWieRFQwK4EmR1Cr AEdkIQJ9IZGvRmNgGMOeLP OOIvZjWoYeQyN5Nxb6EnSh RHo0OCxyX8IWBNSwCQR2EC U9IRU2ThY1IAg4VHJYSx1u EPEnSOV5PaK8ING8WpO5GE xcdCAyIFxcZiBBcmlhbCBc VFKmZFlgruD2KXDqJWNqmA ebgG1vGx3tDV3pjIHxXDGn kE3uUH3sBghgvKUpTRQzTO 3xbU5gIjckTNVaEGajLGVd L84tz6CYo8YdWC4NSBg4cg OjbxayzP3fSRYrhkVaBZhh vJFoW8spZ5MlUTHcOoJwHp JtXTe0QIXhgG5aKj2lgDTw yO5lzCMpVJhoOUA2qHTeES TxNVNcPHGvWH50ZPkCDUMm bmFtZSwgbWVkaWNhbCByZW NvcmQgbnVtYmVyIGFuZCBc zTvqDcXgUBi0V8KitHlrHN Shi9akck9rzYkijNKqp0Gh sgArjhrvPLQeGQDzw85hfC Z6nvEpHqXkvCr3gMMpSHD7 OJ9ybLpntmuafIOiVZd9jI UlMSLfLwAifKcxj6MySFme LjQgeCAyLjEgeCAwLjQgY2 0dgS7bIAimbzAbOYRhRO1d WDVpLPWysMAmoU1wuaJhbq AmxHSaxAX9XSOyzX4uxC61 iyYecmGXCI6ynBYbQW1XSN BhciANClxjZjBcZnMyMiAN ClxwbGFpblxlcGljTmVzdE QzXrTeqZhkrR34IBQtvYTw JKI0XL0iBQGxojxrAROmRW IdCJQ1ONjrhU12bBNlNZGj FMEpqEMnvU4Nc5ppIXWarH RtJZJ4EHyzbQBsNTPvHNDy XHyvNuDzT5OYIMXqOrHtWF W4NFRdBEh5RZu1AG7GEtLv GBRnOFRjAuC8UUDtWGo9AG gvUI5SFHH4Qdc5XTH3BAP0 NTMyOCBcXHQgMiBcXGYgQX MyPZczRNjioWKxWC8rpIer gfQ5XUScVLosUUHeOFScaG agEOGHu2jhzwRcMNUjP1j7 I0BlF3HdXTtcUd6eaDUmHY 5PQDRkkKHIEQS5AV3yWWYB ClxsdHJwYXJcbGluMFxyaW 8gCN7YPZx7epHmWMZcSKwr wdUhIZKpC0FtkyOkRPsdUT Beth7ctJssNSdfOmNlLEMg f9e4nPM1uEInhWK7aDEsqY tmEbPtLU3tqKCsTO5rZMqk ATltsqHdp8NyBZ82eHEtyh DkfyJkJUB2ZwGzOFceMEXz x7k8qMkzC62kg83jkrogtX NvQXFhJB4eyB0wEsJduwEi E63ga8grlUAmo9VsvCNxtJ lwbGUgdGFuLXBpbmssIHBl SYUaF1QwEHKsQOJnq8T7BH Ndl2O7BMZgJr17SPxsIq2t IRffND55EEZjFCdiYOPaZ2 GeK9D7NDrhHSEOeIKjm6Lq G6orKA0zcLJtq8UjlUm1dN BlKXbyGNFczT7oiV7jHjIu XHBhciANClxwYXIgDQpcY2 HyKDVpXpPnXLowtExcyW6m OUKhR48ya3PNw6RmLTSbOL itg5yshSjjy6YnmIIcCIed PQVsnOLdQUhavC1sGnHqq5 zdnNf4IHhhwkP0BYIjgf9P LffcSykprJztt0KdiHNeET ykXNCcXJUuJQsgQCPnZZ5H AsHwCQpINhfqYSajIsL3MP m2EOODDpBqVgKtCxkcQSO1 GnCdMWs6CIo2OBjXYlN1VU O5BIBeOuQrBVQpHwtfETg9 IDIgXFxmIEFyaWFsIFxcZm msEIvsB38jZtKkKlbnmCHs lzUZTlCRe5e5sMakB67vq6 2iQLPQwrGbq6UtdpShPeik DQVaLJszTULmQ40dt1GXg7 EwPB5JBKe7sqEnkvdebC3l PITlopRzMXzziLYhO3mhD5 ZkWGBvGpGuEkEpNXm1QMNz pL0qVe6biWBhyI0scPCmTV lwUZR8pMZsEVKeXUYmTNOd IT42GBhXJAZslcSfHMoruR VkaWNhbCByZWNvcmQgbnVt YmVyIGFuZCBcdTgyMjAgXC h9B9ZtnEtpDGSag6flge44 lbXge9KwyqMzQFVziWHuSD 2kKikmdT90NEDyLGKgJCOx fGcpKOleEjBzjzRnU07wn7 yutXLbv1SysQKgqXrioAKw dGFuLXBpbmssIHBlZHVuY3 VvCYGcPGIas2C7UOBjd5P9 DUEoYl1zAOzxGn9nVKdgMY 22GWAgFMfbEXMlS7VwU2U0 BMxsSRBYfWCdm0DzL5kgLA 9wkMRtp4TcnXe8fZClSQfr EXTucR6frE2kMPPzPWTiXM PkntUWTpfmHAKjQQyQr5In pUvyDKZkI1w4w50vY7rfhB OnHHZNARN2cWCaobPhsXQr JZ8AMKRxffXQJmmxSsUgSw MyMiANClxwbGFpblxlcGlj CcKrqQMsWvRpcXcrfV29IO TmxTStJGG1KO5tGLOjfypj FQNdQGUaHZX1ALzyfK85kC GiCIYpQYRkjBVryW2MROMw OFW7HXjirG94yJCtEW6ZYF RwIUE4PDGbqKHfEPU3QN9c fQ0KfQ== MICROSCOPIC DESCRIPTION n9auyQHoKMXlzQV1UsZdIR (test code = 3371) Sho4cck3RbdHWelZZsBHwh zKHygnVlzk04uWB4hD59JX 6oCOHxLoN7VHIhysT4Ilt0 WHDnJZFhyTLoJ416b9eod7 uzfjOsrUY2rDotBNHwtxgp ZiO4JQwbWQEnuamqRBm1WM tbQKQoaJF5MBYsbBHaM5Lh GJIhLW9qill7MQN8ECvxLK FjUcJ5PTBylIAsBLNkiYcu RGjzx438JOT4PeOyFGIbpt IrfRazwY4oJtLjLLBYJWNm d5JpZYWbGBBrorthTJHrUM Bhcn0= [facility]ISS[facility] [id number] 09:50:09Surgical Pathology Report Case: [id number] Authorizing Provider: Angela Loco Collected: 07/03/2021 03:04 PM MD Brian Ordering Location: [address] Received: 07/06/2021 09:08 AM Service Pathologist: Michelle Fernández MD Specimens: A) - Polyp, Colon - Cecum, x1 taken byhotsnare B) - Polyp, Colon - Right/Ascending, x 1 taken by hot snare C) - Polyp, Colon - Right/Ascending, x 1 taken by hot snare, clip x 1 D) - Polyp, Colon - Transverse, x 1 taken by hot snare, clip x 1 A. COLON, CECAL POLYP, BIOPSY: - TUBULAR ADENOMAB. COLON, RIGHT/ASCENDING POLYP, BIOPSY: - MULTIPLEFRAGMENTS OF TUBULAR ADENOMA - NEGATIVE FOR HIGH-GRADE DYSPLASIA OR MALIGNANCYC. COLON, RIGHT/ASCENDING POLYP, BIOPSY: - MULTIPLE FRAGMENTS OF TUBULAR ADENOMA - NEGATIVE FOR HIGH-GRADE DYSPLASIA OR MALIGNANCYD. COLON, TRANSVERSE POLYP, BIOPSY: - MULTIPLE FRAGMENTS OF TUBULAR ADENOMA - NEGATIVE FOR HIGH-GRADE DYSPLASIA OR MALIGNANCY Signing Pathologist Direct Phone Line: [phone] signed by Michelle Fernández MD on 07/07/2021 at 9:50 [id number] deficiency anemia, unspecified irondeficiency anemia type A. Polyp, Colon - Cecum.Received in formalin labeled with the patient's name,medical record number and "polyp, colon-cecum" consists of 2 robert- pink, ovoid soft tissue (0.5 x 0.2 x 0.1 cm, 0.6 x 0.3 x 0.3 cm). The specimen is submitted in toto in A1.B. Polyp, Colon - Right/Ascending.Received in formalin labeled with the patient's name, medical record number and "polyp, colon-right ascending" and consists of multiple robert-pink, irregular soft tissue (2.4 x 2.1 x 0.4 cm in aggregate). The specimen is submitted in toto in B1.C. Polyp, Colon - Right/Ascending.Received in formalin labeled with the patient's name, medical record number and "polyp, colon-right ascending" and consistsof multiple robert-pink, pedunculated soft tissue (2.4 x 2.1 x 0.4 cm in aggregate). The specimen is submitted in toto in C1.D. Polyp, Colon - Transverse.Received in formalin labeled with the patient's name, medical record number and "polyp, aepih-vbhdgaxdvo-5 taken by hot snare, clip x1" and consists ofmultiple robert- pink, pedunculated soft tissue (6.0 x 2.2 x 0.4 cm in aggregate). The specimen is submitted in toto in D1-D3.GRICELDA Andrew studentPerformed.POC- Glucose [id number] 08:45:23 Test Item Value Reference Range Interpretation Comments POC-Glucose Meter (test 92 mg/dL 70-110 : TE STED AT [facility] code = 1538) [address] [place] [address], [facility] 30: Director Of Enterprise Architecture/Techni kelle ID = [id number] for EDMUNDO BARRAGAN Lab Interpretation (test Normal code = 32861-6) [facility]-Glucose [id number] 08:45:23 Test Item Value Reference Range Interpretation Comments POC-Glucose Meter (test 92 mg/dL 70-110 : TE STED AT [facility] code = 1538) [address] [facility], 770 30: Director Of Enterprise Architecture/Techni kelle ID = [id number] for EDMUNDO BARRAGAN Lab Interpretation (test Normal code = 81918-6) [facility]-Glucose [id number] 08:45:23 Test Item Value Reference Range Interpretation Comments POC-Glucose Meter (test 92 mg/dL 70-110 : TE STED AT [facility] code = 1538) [address], [address] 30: Director Of Enterprise Architecture/Techni kelle ID = [id number] for EDMUNDO BARRAGAN Lab Interpretation (test Normal code = 46388-4) [facility] [id number] 08:45:23 Test Item Value Reference Range Interpretation Comments POC-GLUCOSE METER 92 mg/dL 70-110 : TESTED A T [facility] 6720 (BEAKER) (test code = YUDY Vaca [facility], 1538) [address]: Director Of Enterprise Architecture/Techni kelle ID = [id number] for EDMUNDO DÍAZ RAD, CHEST, 1 VIEW, NON [id number] 07:59:00Reason for exam:->post-opShould this be performed at the bedside?->Yes [facility] 1955 Sex: FFINAL REPORT RAD, CHEST, 1 VIEW, NON DEPT INDICATION: post-op COMPARISON: Prior day's exam FINDINGS: Portable frontal view of the chest. IMPRESSION: Support Lines: Sternotomy wires. Central catheter tip overlies the SVC. Pacer device. Lungs and pleura: Bilateral effusions and adjacent atelectasis are unchanged. No significant pneumothorax. Heart and mediastinum: Stable contours. Stable surgical changes. Additional findings: None. Signed: Bayron Cosme Verified Date/Time:07/04/2021 07:59:51 BASIC METABOLIC [id number] 06:24:45 Test Item Value Reference Range Interpretation [...] S NOT APPLICABLE FOR DIALYSIS PATIEN TS. Director Of Enterprise Architecture ID - [id number] 06:15:51 Test Item Value Reference Range Interpretation Comments MAGNESIUM (BEAKER) (test code = 1.9 mg/dL 1.6-2.6 627) Director Of Enterprise Architecture ID - [id number] 06:15:51 Test Item Value Reference Range Interpretation Comments PHOSPHORUS (BEAKER) (test code = 3.1 mg/dL 2.3-4.7 604) Director Of Enterprise Architecture ID - DBCBC (HEMOGRAM ONLY)2021-07-04 05:44:21 Test [...] Not Detected, (test code = Negative, See 80087-9) external report for linked test SARS-COV-2 [facility] (test code = 42121-5) BRANDI (test code = Negative result for [...] of the Act. Fact Sheet for Healthcare Providers:https://www.[employer]ivance/sites/default/f radha/product/documents/F act_Sheet_HC_Providers_L dkt_ALYB-WqJ-1.pdf Fact Sheet for Healthcare Patients:https://www.[employer]/sites/default/fi les/product/documents/Fa ct_Sheet_Patients_Lyra_S ARS-CoV-2.pdf Performing Laboratory:[facility] [place] [address] [facility] (Asymptomatic ONLY)2021-07-04 00:21:04 Test Item Value Reference Range Interpretation Comments SARS-COV2/RT-PCR Negative Not Detected, (test code = Negative, See 43481-3) external report for linked test SARS-COV-2 [facility] PERFORM[facility] (test code = 85133-8) BRANDI (test code = Negative result for [...] of the Act. Fact Sheet for Healthcare Providers:https://www.[employer]iv[employer]/sites/default/f radha/product/documents/F act_Sheet_HC_Providers_L bza_GGYA-VkQ-2.pdf Fact Sheet for Healthcare Patients:https://www.[employer]/sites/default/fi les/product/documents/Fa ct_Sheet_Patients_Lyra_S ARS-CoV-2.pdf Performing Laboratory:[facility], [place] [address] [place], [place] [address]ARS-CoV2/RT-PCR (Asymptomatic ONLY)2021-07-04 00:21:04 Test Item Value Reference Range Interpretation Comments SARS-COV2/RT-PCR Negative Not Detected, (test code = Negative, See 22366-6) external report for linked test SARS-COV-2 [facility] PERFORM[facility] (test code = 07716-0) BRANDI (test code = Negative result for [...] of the Act. Fact Sheet for Healthcare Providers:https://www.Mediv[employer]/sites/default/f radha/product/documents/F act_Sheet_HC_Providers_L ind_SBFU-YbT-6.pdf Fact Sheet for Healthcare Patients:https://www.[employer]/sites/default/fi les/product/documents/Fa ct_Sheet_Patients_Lyra_S ARS-CoV-2.pdf Performing Laboratory:[facility] [place] [address] [facility] ([facility])2021-07-04 00:21:04 Test Item Value Reference Range Interpretation Comments SARS-COV2/RT-PCR (test Negative Not Detected, Negative, code = 2806615) See external report for linked test SARS-COV-[address] [facility] (test code = 9022440) Negative result for this test determines that [...] justifying the authorization of the emergency use ofin vitro diagnostic tests for detection and/or diagnosis of COVID-19 is terminated under Section 564(b)(2) of the Act or the EUA is revoked under Section 564(g) of the Act.Fact Sheet for Healthcare Prov iders:https://www.[employer]/sites/default/files/product/documents/Fact_Sheet_HC _Fkehbgjqq_Luiu_FBFQ-YlA-3.pdfFact Sheet for Healthcare Patients:https://www.[employer]/sites/default/files/product/docume nts/Hdfr_Jxwoh_Hthvdaab_Uchi_CZQH-NdL-3.pdfPerforming Laboratory:[facility] [place] [address].[place], [place] [address]QXOC-DVURTQG METER 2021-07-03 21:29:18 Test Item Value Reference Range Interpretation Comments POC-GLUCOSE METER 169 mg/dL 70-110 H : TESTED A T [facility] [address] ([place]) (test code = [facility], 153) [address]: Director Of Enterprise Architecture/Techni kelle ID = [id number] for Co rtez, Keyla POCT-GLUCOSE [id number] 17:51:28 Test Item Value Reference Range Interpretation Comments POC-GLUCOSE METER 110 mg/dL 70-110 : TESTED A T [facility] 6720 ([place]) (test code = [facility], 153) [address]: Director Of Enterprise Architecture/Techni kelle ID = [id number] for OR EDMUNDO BOWIE POCT-GLUCOSE [id number] 16:18:01 Test Item Value Reference Range Interpretation Comments POC-GLUCOSE METER 78 mg/dL 70-110 : TESTED A T [facility] 6720 (BEAKER) (test code = [facility], 1538) [address]: Director Of Enterprise Architecture/Techni kelle ID = [id number] for Sarwat Arenas POC-Glucose [id number] 13:43:00 Test Item Value Reference Range Interpretation Comments POC-Glucose Meter (test 82 mg/dL 70-110 : TE STED AT [facility] code = 1538) [address] [facility], 770 30: Director Of Enterprise Architecture/Techni kelle ID = [id number] for RENETTA STEARNS Lab Interpretation (test Normal code = 77103-3) [facility] [id number] 13:43:00 Test Item Value Reference Range Interpretation Comments POC-GLUCOSE METER 82 mg/dL 70-110 : [facility] T [facility] [facility] (test code = [facility], 1538) [address]: Director Of Enterprise Architecture/Techni kelle ID = [id number] for RENETTA STEARNS POCT-GLUCOSE [id number] 08:55:17 Test Item Value Reference Range Interpretation Comments POC-GLUCOSE METER 85 mg/dL 70-110 : TESTED A T [facility] 67[address] ([facility]) (test code = [facility], 1538) [address]: Director Of Enterprise Architecture/Techni kelle ID = [id number] for ORPH EY, EDMUNDO RAD, CHEST, 1 VIEW, NON [id number] 07:19:00Reason for exam:->post-opShould this be performed at the bedside?->Yes [facility] 1955 Sex: FFINAL REPORT RAD, CHEST, 1 VIEW, NON DEPT INDICATION: post-op COMPARISON: Prior day's exam TECHNIQUE: Portable frontal view of the chest. FINDINGS: Support Lines and Devices: Stable. Lungs and pleura: Unchanged airspace and pleural opacities. No pneumothorax identified. Heart and medi astinum: Stable contours. Stable surgical changes. Additional findings: None. IMPRESSION: 1.No significant change from prior exam.2.Small right pleural effusion3.Right retrocardiac opacity, representing singly or in combination airspace disease, atelectasis, or pleural effusion. Signed: Boogie Conteh Verified Date/Time: 07/03/2021 07:19:27 Reading Location: [facility] Radiology Reading Room BASIC METABOLIC [id number] 04:12:43 Test Item Value Reference Range Interpretation [...] S NOT APPLICABLE FOR DIALYSIS PATIEN TS. Director Of Enterprise Architecture ID Bassam BLEDSOE [id number] 03:43:29 Test Item Value Reference Range Interpretation Comments MAGNESIUM (BEAKER) (test code = 2.1 mg/dL 1.6-2.6 627) Director Of Enterprise Architecture ID - RAKAN [id number] 03:43:29 Test Item Value Reference Range Interpretation Comments PHOSPHORUS (BEAKER) (test code = 3.4 mg/dL 2.3-4.7 604) Director Of Enterprise Architecture ID Bassam BLEDSOE WCBC (HEMOGRAM ONLY)2021-07-03 03:25:24 [...] WBC 0-0 (test code = 413) POC-Glucose [id number] 21:37:50 Test Item Value Reference Range Interpretation Comments POC-Glucose Meter (test 97 mg/dL 70-110 : TE STED AT [facility] code = 1538) [address] [facility] [place], [address] 30: Director Of Enterprise Architecture/Techni kelle ID = [id number] for MACKENZIE WASHINGTON Lab Interpretation (test Normal code = 75431-2) [facility] [id number] 21:37:50 Test Item Value Reference Range Interpretation Comments POC-GLUCOSE METER 97 mg/dL 70-110 : TESTED A T [facility] 6720 (BEAKER) (test code = [facility], 1538) [address]: Director Of Enterprise Architecture/Techni kelle ID = [id number] for MACKENZIE SHAFER POCT-GLUCOSE [id number] 18:00:54 Test Item Value Reference Range Interpretation Comments POC-GLUCOSE METER 166 mg/dL 70-110 H : [facility] (test code = [facility], 1538) 38273: Director Of Enterprise Architecture/Techni kelle ID = [id number] for Ba rrera, Kayla POCT-GLUCOSE [id number] 13:01:12 Test Item Value Reference Range Interpretation Comments POC-GLUCOSE METER 169 mg/dL 70-110 H : [facility] (test code = [facility], 153) 63593: Director Of Enterprise Architecture/Techni kelle ID = [id number] for Ba rrera, Kayla POC-Glucose [id number] 08:45:07 Test Item Value Reference Range Interpretation Comments POC-Glucose Meter (test 134 mg/dL 70-110 H : TE STED AT [facility] code = 1538) 6720 [facility], 770 30: Director Of Enterprise Architecture/Techni kelle ID = [id number] for Freitas, Nawaf a Lab Interpretation (test Abnormal code = 80919-0) [facility]PO[facility] [id number] 08:45:07 Test Item Value Reference Range Interpretation Comments POC-GLUCOSE METER 134 mg/dL 70-110 H : TESTED A T [facility] 6720 (BEAKER) (test code = [facility], 1538) 78877: Director Of Enterprise Architecture/Techni kelle ID = [id number] for Ba rrera, Kayla RAD, CHEST, 1 VIEW, NON [id number] 08:36:00Reason for exam:->post-opShould this be performed at the bedside?->Yes [facility] 1955 Sex: FFINAL REPORT RAD, CHEST, 1 VIEW, NON DEPT INDICATION: post-op COMPARISON: Prior day's exam TECHNIQUE: Portable frontal view of the chest. FINDINGS: Support Lines and Devices: Stable. Lungs and pleura: Unchanged airspace and pleural opacities. No pneumothorax identified. Heart and medi astinum: Mild to moderate cardiomegaly is present. Stable surgical changes. Additional findings: None. IMPRESSION: 1.No significant change from prior exam.2.Cardiomegaly with central pulmonary vascularcongestion.3.Blunting of the right costophrenic sulcus, which may represent pleural thickening/scarring or small pleural effusion. Signed: Boogie Conteh MDReport Verified Date/Time: 07/02/2021 08:36:36Reading Location: [facility] Radiology Reading Room Basic Metabolic [id number] 07:06:58 Test Item Value Reference Range Interpretation Comments Sodium (test code = 137 meq/L 333-587 8308-2) Potassium (test code = 3.9 meq/L 3.5-5.1 2823-3) Chloride (test code = 101 meq/L 98-107 2075-0) CO2 (test code = 28 meq/L 22-29 2027-9) BUN (test code = 23 mg/dL 7-21 H 3094-0) Creatinine (test code 3.16 mg/dL 0.57-1.25 H = 2160-0) Glucose (test code = 150 mg/dL 70-105 H 2345-7) Calcium (test code = 8.1 mg/dL 8.4-10.2 L 23346-1) EGFR (test code = 15 mL/min/1.73 [place] [address]-8) NOT ACCURATE CREATININE CLEARANCE IN PREDICTING GLOMERULAR FILTRATION RATE . ESTIMATED GFR I S NOT APPLICABLE FOR DIALYSIS PATIENTS. BRANDI (test code = BRANDI) Director Of Enterprise Architecture ID - LIANA L Lab Interpretation Abnormal (test code = 75093-9) [facility] HospitalBASIC METABOLIC [id number] 07:06:58 Test Item Value Reference Range Interpretation [...] S NOT APPLICABLE FOR DIALYSIS PATIEN TS. Director Of Enterprise Architecture ID - LIANA VPqeahzymn7809-01-53 07:06:52 Test Item Value Reference Range Interpretation Comments Magnesium (test code = 1.9 mg/dL 1.6-2.6 43742-0) BRANDI (test code = BRANDI) Director Of Enterprise Architecture ID - LIANA L Lab Interpretation (test Normal code = 06560-9) [facility] HospitalPhosphorus2022-03-31 07:06:52 Test Item Value Reference Range Interpretation Comments Phosphorus (test code = 2.6 mg/dL 2.3-4.7 2777-1) BRANDI (test code = BRANDI) Director Of Enterprise Architecture ID - LIANA L Lab Interpretation (test Normal code = 39681-2) [facility] HospitalMAGNESIUM2022-03-31 07:06:52 Test Item Value Reference Range Interpretation Comments MAGNESIUM (BEAKER) (test code = 1.9 mg/dL 1.6-2.6 627) Director Of Enterprise Architecture ID - LIANA [id number] 07:06:52 Test Item Value Reference Range Interpretation Comments PHOSPHORUS (BEAKER) (test code = 2.6 mg/dL 2.3-4.7 604) Director Of Enterprise Architecture ID - LIANA LCBC (Hemogram only)2021-07-02 05:56:49 Test Item Value Reference Range Interpretation Comments WBC (test code = 6690-2) 4.6 See_Comment [A utomated message] The system Awo[employer] generated this result transmitted ref erence range: 3.5 - 10 .5 K/L. The refe rence range was not u sed to interpret this result as normal/abnor mal. RBC (test code = 789-8) 2.50 See_Comment L [Au tomated message] The system Awo[employer] generated this result transmitted ref erence range: 3.93 - 5 .22 M/L. The refe rence range was not u sed to interpret this result as normal/abnor mal. MCHC (test code = 786-4) 31.9 See_Comment L [A utomated message] The system AwoX generated this result transmitted ref erence range: [...] L [Aut omated message] 777-3) The system A[employer] generated this result transmitted ref erence range: 150 - 45 0 K/CU MM. The referen ce range was not u sed to interpret this result as normal/abnor mal. MPV (test code = 11.3 fL 9.4-12.3 68845-0) nRBC (test code = 413) 0 See_Comment [Aut omated message] The system Awo[employer] generated this result transmitted ref erence range: 0 - 0 /1 00 WBC. The refere nce range was not u sed to interpret this result as normal/abnor mal. Lab Interpretation (test Abnormal code = 95119-2) [facility] (HEMOGRAM ONLY)2021-07-02 05:56:49 Test Item Value Reference [...] WBC 0-0 (test code = 413) POCT-GLUCOSE [id number] 21:57:03 Test Item Value Reference Range Interpretation Comments POC-GLUCOSE METER 179 mg/dL 70-110 H : TESTED A T [facility] 6720 (BEAKER) (test code = [place], 1538) 8[address]: Director Of Enterprise Architecture/Techni kelle ID = [id number] for MACKENZIE GONZALEZ POCT-GLUCOSE [id number] 17:59:08 Test Item Value Reference Range Interpretation Comments POC-GLUCOSE METER 208 mg/dL 70-110 H : TESTED A T [facility] 6720 (BEAKER) (test code = [facility] [employer] [facility], 1538) 22327: Director Of Enterprise Architecture/Techni kelle ID = [id number] for Loco Hicks POCT-GLUCOSE [id number] 13:37:14 Test Item Value Reference Range Interpretation Comments POC-GLUCOSE METER 118 mg/dL 70-110 H : TESTED A T [facility] 6720 (AKASH) (test code = [place], 1538) 21[address]: Director Of Enterprise Architecture/Techni kelle ID = [id number] for Millie Toledo RAD, CHEST, 1 VIEW, NON [id number] 09:58:00Reason for exam:->post-opShould this be performed at the bedside?->Yes [facility] 1955 Sex: FFINAL REPORT RAD, CHEST, 1 VIEW, NON DEPT INDICATION: post-op COMPARISON: Prior day's exam TECHNIQUE: Portable frontal view of the chest. FINDINGS: Support Lines and Devices: Stable. Lungs and pleura: Bilateral airspace and interstitial opacities, worsened compared to prior exam, which may represent pneumonia or pulmonary edema. No pneumothorax identified. Heart and mediastinum: Stable contours. Stable surgical changes. Additional findings: None. IMPRESSION: Bilateral airspace and interstitial opacities, mildly worsened compared to prior exam, which may represent atelectasis, pneumonia or pulmonary edema. Signed: Boogie Conteh Verified Date/Time: 07/01/2021 09:58:13 Reading Location: [facility] Radiology Reading Room POC-Glucose [id number] 08:48:09 Test Item Value Reference Range Interpretation Comments POC-Glucose Meter (test 127 mg/dL 70-110 H : TE STED AT [facility] code = 1538) 6720 [place], 770 30: Director Of Enterprise Architecture/Techni kelle ID = [id number] for Loco Chpaman Lab Interpretation (test Abnormal code = 71003-9) [facility] HospitalPOCT-GLUCOSE [id number] 08:48:09 Test Item Value Reference Range Interpretation Comments POC-GLUCOSE METER 127 mg/dL 70-110 H : TESTED A T [facility] 6720 (BEAKER) (test code = YUDY R [facility], 1538) 26436: Director Of Enterprise Architecture/Techni kelle ID = [id number] for Loco Hicks Basic Metabolic [id number] 06:34:36 Test Item Value Reference Range Interpretation [...] (test code = 8.2 mg/dL 8.4-10.2 L 63629-1) EGFR (test code = 10 mL/min/1.[place] [address]-2) NOT ACCURATE CREATININE CLEARANCE IN PREDICTING GLOMERULAR FILTRATION RATE . ESTIMATED GFR I S NOT APPLICABLE FOR DIALYSIS PATIENTS. BRANDI (test code = BRANDI) Director Of Enterprise Architecture ID - PIAYA L Lab Interpretation Abnormal (test code = 30279-6) [facility] HospitalBASI METABOLIC [id number] 06:34:36 Test Item Value Reference Range Interpretation [...] S NOT APPLICABLE FOR DIALYSIS PATIEN TS. Director Of Enterprise Architecture ID - LIANA LQqmhldiqw9586-05-77 06:26:43 Test Item Value Reference Range Interpretation Comments Magnesium (test code = 2.1 mg/dL 1.6-2.6 25537-3) BRANDI (test code = BRANDI) Director Of Enterprise Architecture ID Bassam GAINES L Lab Interpretation (test Normal code = 90079-1) [facility] HospitalPhosphorus2022-03-30 06:26:43 Test Item Value Reference Range Interpretation Comments Phosphorus (test code = 3.6 mg/dL 2.3-4.7 2777-1) BRANDI (test code = BRANDI) Director Of Enterprise Architecture ID - LIANA L Lab Interpretation (test Normal code = 49696-5) [facility]MAG[facility]UM2022-03-30 06:26:43 Test Item Value Reference Range Interpretation Comments MAGNESIUM (BEAKER) (test code = 2.1 mg/dL 1.6-2.6 627) Director Of Enterprise Architecture ID - LIANA [id number] 06:26:43 Test Item Value Reference Range Interpretation Comments PHOSPHORUS (BEAKER) (test code = 3.6 mg/dL 2.3-4.7 604) Director Of Enterprise Architecture ID Bassam GAINES LCBC (Hemogram only)2021-07-01 05:41:20 Test Item Value Reference Range Interpretation Comments WBC (test code = 6690-2) 4.8 See_Comment [A utomated message] The system AwoX generated this result transmitted ref erence range: 3.5 - 10 .5 K/L. The refe rence range was not u sed to interpret this result as normal/abnor mal. RBC (test code = 789-8) 2.60 See_Comment L [Au tomated message] The system AwoX generated this result transmitted ref erence range: 3.93 - 5 .22 M/L. The refe rence range was not u sed to interpret this result as normal/abnor mal. MCHC (test code = 786-4) 32.1 See_Comment L [A utomated message] The system AwoX generated this result transmitted ref erence range: [...] L [Aut omated message] 777-3) The system Awo[employer] generated this result transmitted ref erence range: 150 - 45 0 K/CU MM. The referen ce range was not u sed to interpret this result as normal/abnor mal. MPV (test code = 11.3 fL 9.4-12.3 48566-9) nRBC (test code = 413) 0 See_Comment [Aut omated message] The system AwoX generated this result transmitted ref erence range: 0 - 0 /1 00 WBC. The refere nce range was not u sed to interpret this result as normal/abnor mal. Lab Interpretation (test Abnormal code = 66443-4) [facility] (HEMOGRAM ONLY)2021-07-01 05:41:20 Test Item Value Reference [...] WBC 0-0 (test code = 413) POCT-GLUCOSE [id number] 21:14:47 Test Item Value Reference Range Interpretation Comments POC-GLUCOSE METER 159 mg/dL 70-110 H : TESTED A T [facility] 6720 (BEAKER) (test code = [place], 1538) [address]: Director Of Enterprise Architecture/Techni kelle ID = [id number] for RO FRANCESMACKENZIE RAD, ABDOMEN/KUB, 1 VIEW [id number] 18:59:00Reason for exam:- >constipationShould this be performed at the bedside?->Yes [facility] 1955 Sex: FFINAL REPORT Exam: RAD, ABDOMEN/KUB, 1 VIEW APDate: 06/30/2021 6:58 PM Indication:constipation COMPARISON: 06/24/2021 DISCUSSION/IMPRESSION: The lower thorax is within normal limits. Nonspecific bowel gas pattern. No evidence of free air within the limitations of this study. Signed: Kb Gregorio Verified Date/Time: 06/30/2021 18:59:30 Reading Location: [address] Reading Room POCT-GLUCOSE [id number] 17:39:03 Test Item Value Reference Range Interpretation Comments POC-GLUCOSE METER 204 mg/dL 70-110 H : TESTED A T [facility] 6720 ([place]) (test code = YUDY [place] [facility], 1538) [address]: Director Of Enterprise Architecture/Techni kelle ID = [id number] for OR PHEY, EDMUNDO POCT-GLUCOSE [id number] 12:35:41 Test Item Value Reference Range Interpretation Comments POC-GLUCOSE METER 136 mg/dL 70-110 H : TESTED A T [facility] 6720 ([place]) (test code = YUDY [place] [facility], 1538) 54733: Director Of Enterprise Architecture/Techni kelle ID = [id number] for OR PHEY, EDMUNDO RAD, CHEST, 1 VIEW, NON [id number] 09:21:00Reason for exam:->post-opShould this be performed at the bedside?->Yes [facility] : 1955 Sex: FFINAL REPORT RAD, CHEST, 1 VIEW, NON DEPT INDICATION: post-op COMPARISON: Prior day's exam TECHNIQUE: Portable frontal view of the chest. FINDINGS: Support Lines and Devices: Stable. Lungs and pleura: No focal consolidation. No pneumothorax identified. Heart and mediastinum: Mild card iomegaly is present. Stable surgical changes. Additional findings: None. IMPRESSION: No significant change from prior exam. Signed: Boogie Conteh MDReport Verified Date/Time: 06/30/2021 09:21:42 Reading Location: [facility] Radiology Reading Room POCT-GLUCOSE [id number] 08:26:49 Test Item Value Reference Range Interpretation Comments POC-GLUCOSE METER 132 mg/dL 70-110 H : TESTED A T [facility] 6720 (BEAKER) (test code = [facility] [place] [facility], 1538) 86397: Director Of Enterprise Architecture/Techni kelle ID = [id number] for OR JAMIREDMUNDO BASIC METABOLIC [id number] 05:31:46 Test Item Value Reference Range Interpretation [...] S NOT APPLICABLE FOR DIALYSIS PATIEN TS. Director Of Enterprise Architecture ID - PIAYA [id number] 05:28:01 Test Item Value Reference Range Interpretation Comments MAGNESIUM (BEAKER) (test code = 1.8 mg/dL 1.6-2.6 627) Director Of Enterprise Architecture ID - LIANA [id number] 05:28:01 Test Item Value Reference Range Interpretation Comments PHOSPHORUS (BEAKER) (test code = 2.6 mg/dL 2.3-4.7 604) Director Of Enterprise Architecture ID - LIANA LCBC (HEMOGRAM ONLY)2021-06-30 05:03:10 [...] 0-0 (test code = 413) Prepare Leuko-Red [id number] 23:54:00 Test Item Value Reference Range Interpretation Comments CROSSMATCH (test code = 2264) COMPATIBLE Unit ABO (test code = O Pos 6701424) UNIT NUMBER (test code = [id number] 934-0) Status (test code = 4891880) TX_TIMEINCHART Blood Bank Product (test code RED BLOOD CELLS = 2263) PRODUCT CODE (test code = M7819A83 933-2) [facility] Hospital[facility]Red [id number] 23:54:00 Test Item Value Reference Range Interpretation Comments CROSSMATCH (test code = 2264) COMPATIBLE Unit ABO (test code = O Pos 8036407) UNIT NUMBER (test code = [id number] 934-0) Status (test code = 2040101) TX_TIMEINCHART Blood Bank Product (test code RED BLOOD CELLS = 2263) PRODUCT CODE (test code = D2963M35 933-2) [facility] Leuko-Red [id number] 23:54:00 Test Item Value Reference Range Interpretation Comments CROSSMATCH (test code = 2264) COMPATIBLE Unit ABO (test code = O Pos 1708516) UNIT NUMBER (test code = [id number] 934-0) Status (test code = 7416986) [facility]INCA[facility]ALT Blood Bank Product (test code RED BLOOD CELLS = 2263) PRODUCT CODE (test code = O2276S99 933-2) [facility] HospitalPrep[facility] Leuko-Red [id number] 23:54:00 Test Item Value Reference Range Interpretation Comments CROSSMATCH (test code = 2264) COMPATIBLE Unit ABO (test code = O Pos 7712521) UNIT NUMBER (test code = [id number] 934-0) Status (test code = 4625395) TX_TIMEINCHART Blood Bank Product (test code RED BLOOD CELLS = 2263) PRODUCT CODE (test code = E3894Y18 933-2) [facility] HospitalPrep[facility] Leuko-Red [id number] 23:54:00 Test Item Value Reference Range Interpretation Comments CROSSMATCH (test code = 2264) COMPATIBLE Unit ABO (test code = O Pos 0047162) UNIT NUMBER (test code = [id number] 934-0) Status (test code = 7528312) TX_TIMEINCHART Blood Bank Product (test code RED BLOOD CELLS = 2263) PRODUCT CODE (test code = V0524T75 933-2) [facility] Hospital[facility] Leuko-Red [id number] 23:54:00 Test Item Value Reference Range Interpretation Comments CROSSMATCH (test code = 2264) COMPATIBLE Unit ABO (test code = O Pos 1572589) UNIT NUMBER (test code = [id number] 934-0) Status (test code = 5332078) [facility] Product (test code RED BLOOD CELLS = 2263) PRODUCT CODE (test code = P1192X83 933-2) [facility] HospitalPrep[facility] Leuko-Red [id number] 23:54:00 Test Item Value Reference Range Interpretation Comments CROSSMATCH (test code = 2264) COMPATIBLE Unit ABO (test code = O Pos 5827712) UNIT NUMBER (test code = [id number] 934-0) Status (test code = 7711884) [facility] Blood Bank Product (test code RED BLOOD CELLS = 2263) PRODUCT CODE (test code = K9963C41 933-2) [facility] HospitalPOCT-GLUCOSE [id number] 22:04:06 Test Item Value Reference Range Interpretation Comments POC-GLUCOSE METER 149 mg/dL 70-110 H : TESTED A T [facility] 6720 (BEAKER) (test code = [facility], 1538) 16710: Director Of Enterprise Architecture/Techni kelle ID = [id number] for [place], Ti pastora POCT-GLUCOSE [id number] 17:55:17 Test Item Value Reference Range Interpretation Comments POC-GLUCOSE METER 150 mg/dL 70-110 H : TESTED A T [facility] 6720 (BEAKER) (test code = [facility] [employer] [facility], 1538) 71463: Director Of Enterprise Architecture/Techni kelle ID = [id number] for OR PHEY, EDMUNDO POCT-GLUCOSE [id number] 15:31:47 Test Item Value Reference Range Interpretation Comments POC-GLUCOSE METER 155 mg/dL 70-110 H : TESTED A T [facility] 6720 (BEAKER) (test code = [facility] [employer] [facility], 1538) 72703: Director Of Enterprise Architecture/Techni kelle ID = [id number] for OR PHEY, EDMUNDO RAD, CHEST, 1 VIEW, NON [id number] 10:41:00Reason for exam:->post-opShould this be performed at the bedside?->Yes [facility] 1955 Sex: FFINAL REPORT RAD, CHEST, 1 VIEW, NON DEPT INDICATION: post-op COMPARISON: Prior day's exam TECHNIQUE: Portable frontal view of the chest. FINDINGS: Support Lines and Devices: Stable. Lungs and pleura: Mild interstitial opacities bilaterally, which may represent pulmonary edema or viral pneumonia. No pneumothorax identified. Heart and mediastinum: Stable contours. Stable surgical changes. Additional findings: None. IMPRESSION: Mild interstitial opacities bilaterally, which may represent pulmonary edema or viral pneumonia. Signed: Boogie Conteh MDRbristol hospital Verified Date/Time: 06/29/2021 10:41:18 Reading Location: [facility] Radiology Reading Room POC-Glucose [id number] 08:51:04 Test Item Value Reference Range Interpretation Comments POC-Glucose Meter (test 208 mg/dL 70-110 H : TE STED AT [facility] code = 1538) 6720 [facility], 770 30: Director Of Enterprise Architecture/Techni kelle ID = [id number] for ORPHEY, EDMUNDO Lab Interpretation (test Abnormal code = 19372-6) [facility] HospitalPOC-Glucose [id number] 08:51:04 Test Item Value Reference Range Interpretation Comments POC-Glucose Meter (test 208 mg/dL 70-110 H : TE STED AT [facility] code = 1538) 6720 [facility], 770 30: Director Of Enterprise Architecture/Techni kelle ID = [id number] for ORPHEY, EDMUNDO Lab Interpretation (test Abnormal code = 49498-7) [facility] HospitalPOCT-GLUCOSE [id number] 08:51:04 Test Item Value Reference Range Interpretation Comments POC-GLUCOSE METER 208 mg/dL 70-110 H : TESTED [facility] 6720 (BEAKER) (test code = [place], 1538) 7[address]: Director Of Enterprise Architecture/Techni kelle ID = [id number] for OR EDMUNDO BOWIE Basic Metabolic [id number] 06:07:27 Test Item Value Reference Range Interpretation [...] (test code = 8.0 mg/dL 8.4-10.2 L 26018-6) EGFR (test code = 9 mL/min/1.[place] [address]-3) NOT ACCURATE CREATININE CLEARANCE IN PREDICTING GLOMERULAR FILTRATION RATE . ESTIMATED GFR I S NOT APPLICABLE FOR DIALYSIS PATIENTS. BRANDI (test code = BRANDI) Director Of Enterprise Architecture ID - HIEN M Lab Interpretation Abnormal (test code = 08341-2) [facility] HospitalBasic Metabolic [id number] 06:07:27 Test Item Value Reference Range Interpretation Comments Sodium (test code = 133 meq/L 136-145 L 2951-2) Potassium (test code = 4.3 meq/L 3.5-5.1 2823-3) Chloride (test code = 99 meq/L 98-107 2075-0) CO2 (test code = 24 meq/L -29 8-9) BUN (test code = 37 mg/dL 7-21 H 3094-0) Creatinine (test code 4.75 mg/dL 0.57-1.25 H = 2160-0) Glucose (test code = 257 mg/dL 70-105 H 2345-7) Calcium (test code = 8.0 mg/dL 8.4-10.2 L 37082-1) EGFR (test code = 9 mL/min/1.[place] [address]-8) NOT ACCURATE CREATININE CLEARANCE IN PREDICTING GLOMERULAR FILTRATION RATE . ESTIMATED GFR I S NOT APPLICABLE FOR DIALYSIS PATIENTS. BRANDI (test code = BRANDI) Director Of Enterprise Architecture [employer] Lab Interpretation Abnormal (test code = 75425-0) [facility] Metabolic [id number] 06:07:27 Test Item Value Reference Range Interpretation [...] (test code = 8.0 mg/dL 8.4-10.2 L 05236-5) EGFR (test code = 9 mL/min/1.[place] [address]-1) NOT ACCURATE CREATININE CLEARANCE IN PREDICTING GLOMERULAR FILTRATION RATE . ESTIMATED GFR I S NOT APPLICABLE FOR DIALYSIS PATIENTS. BRANDI (test code = BRANDI) Director Of Enterprise Architecture [employer] Lab Interpretation Abnormal (test code = 35980-8) [facility] METABOLIC [id number] 06:07:27 Test Item Value Reference Range Interpretation [...] S NOT APPLICABLE FOR DIALYSIS PATIEN TS. Director Of Enterprise Architecture ID - HIEN RWgdhihhrod6630-55-93 06:05:44 Test Item Value Reference Range Interpretation Comments Phosphorus (test code = 2.5 mg/dL 2.3-4.7 2777-1) BRANDI (test code = BRANDI) Director Of Enterprise Architecture ID - HIEN M Lab Interpretation (test Normal code = 41882-4) [facility] HospitalPhosphorus2022-03-28 06:05:44 Test Item Value Reference Range Interpretation Comments Phosphorus (test code = 2.5 mg/dL 2.3-4.7 2777-1) BRANDI (test code = BRANDI) Director Of Enterprise Architecture ID - HIEN Lab Interpretation (test Normal code = 58397-6) [facility]2022-03-28 06:05:44 Test Item Value Reference Range Interpretation Comments Phosphorus (test code = 2.5 mg/dL 2.3-4.7 2777-1) BRANDI (test code = BRANDI) Director Of Enterprise Architecture ID - HIEN M Lab Interpretation (test Normal code = 39344-9) [facility] HospitalPHOSPHORUS2022-03-28 06:05:44 Test Item Value Reference Range Interpretation Comments PHOSPHORUS (BEAKER) (test code = 2.5 mg/dL 2.3-4.7 604) Director Of Enterprise Architecture ID - HIEN [id number] 06:05:43 Test Item Value Reference Range Interpretation Comments Magnesium (test code = 2.2 mg/dL 1.6-2.6 32223-9) BRANDI (test code = BRANDI) Director Of Enterprise Architecture ID - HIEN M Lab Interpretation (test Normal code = 37220-1) [facility] HospitalMagnesium2022-03-28 06:05:43 Test Item Value Reference Range Interpretation Comments Magnesium (test code = 2.2 mg/dL 1.6-2.6 42579-5) BRANDI (test code = BRANDI) Director Of Enterprise Architecture ID - HIEN M Lab Interpretation (test Normal code = 56026-7) [facility]2022-03-28 06:05:43 Test Item Value Reference Range Interpretation Comments Magnesium (test code = 2.2 mg/dL 1.6-2.6 53144-4) BRANDI (test code = BRANDI) Director Of Enterprise Architecture ID - HIEN M Lab Interpretation (test Normal code = 71746-5) [facility]2022-03-28 06:05:43 Test Item Value Reference Range Interpretation Comments MAGNESIUM (BEAKER) (test code = 2.2 mg/dL 1.6-2.6 627) Director Of Enterprise Architecture ID - HIEN [facility] (Hemogram only)2021-06-29 05:32:19 Test Item Value Reference Range Interpretation Comments WBC (test code = 6690-2) 4.7 See_Comment [A utomated message] The system A[employer] generated this result transmitted ref erence range: 3.5 - 10 .5 K/L. The refe rence range was not u sed to interpret this result as normal/abnor mal. RBC (test code = 789-8) 2.94 See_Comment L [Au tomated message] The system [employer] generated this result transmitted ref erence range: 3.93 - 5 .22 M/L. The refe rence range was not u sed to interpret this result as normal/abnor mal. MCHC (test code = 786-4) 31.8 See_Comment L [A utomated message] The system [employer] generated this result transmitted ref erence range: [...] L [Aut omated message] 777-3) The system [employer] generated this result transmitted ref erence range: 150 - 45 0 K/CU MM. The referen ce range was not u sed to interpret this result as normal/abnor mal. MPV (test code = 12.2 fL 9.4-12.3 14383-1) nRBC (test code = 413) 0 See_Comment [Aut omated message] The system [employer] generated this result transmitted ref erence range: 0 - 0 /1 00 WBC. The refere nce range was not u sed to interpret this result as normal/abnor mal. Lab Interpretation (test Abnormal code = 46438-6) [facility] (Hemogram only)2021-06-29 05:32:19 Test Item Value Reference Range Interpretation Comments WBC (test code = 6690-2) 4.7 See_Comment [A utomated message] The system [employer] generated this result transmitted ref erence range: 3.5 - 10 .5 K/L. The refe rence range was not u sed to interpret this result as normal/abnor mal. RBC (test code = 789-8) 2.94 See_Comment L [Au tomated message] The system [employer] generated this result transmitted ref erence range: 3.93 - 5 .22 M/L. The refe rence range was not u sed to interpret this result as normal/abnor mal. MCHC (test code = 786-4) 31.8 See_Comment L [A utomated message] The system [employer] generated this result transmitted ref erence range: [...] L [Aut omated message] 777-3) The system [employer] generated this result transmitted ref erence range: 150 - 45 0 K/CU MM. The referen ce range was not u sed to interpret this result as normal/abnor mal. MPV (test code = 12.2 fL 9.4-12.3 39313-5) nRBC (test code = 413) 0 See_Comment [Aut omated message] The system [employer] generated this result transmitted ref erence range: 0 - 0 /1 00 WBC. The refere nce range was not u sed to interpret this result as normal/abnor mal. Lab Interpretation (test Abnormal code = 00721-2) [facility] (Hemogram only)2021-06-29 05:32:19 Test Item Value Reference Range Interpretation Comments WBC (test code = 6690-2) 4.7 See_Comment [A utomated message] The system [employer] generated this result transmitted ref erence range: 3.5 - 10 .5 K/L. The refe rence range was not u sed to interpret this result as normal/abnor mal. RBC (test code = 789-8) 2.94 See_Comment L [Au tomated message] The system [employer] generated this result transmitted ref erence range: 3.93 - 5 .22 M/L. The refe rence range was not u sed to interpret this result as normal/abnor mal. MCHC (test code = 786-4) 31.8 See_Comment L [A utomated message] The system [employer] generated this result transmitted ref erence range: [...] L [Aut omated message] 777-3) The system [employer] generated this result transmitted ref erence range: 150 - 45 0 K/CU MM. The referen ce range was not u sed to interpret this result as normal/abnor mal. MPV (test code = 12.2 fL 9.4-12.3 54266-2) nRBC (test code = 413) 0 See_Comment [Aut omated message] The system [employer] generated this result transmitted ref erence range: 0 - 0 /1 00 WBC. The refere nce range was not u sed to interpret this result as normal/abnor mal. Lab Interpretation (test Abnormal code = 76710-6) [facility] (HEMOGRAM ONLY)2021-06-29 05:32:19 Test Item Value Reference [...] WBC 0-0 (test code = 413) POC-Glucose [id number] 19:54:37 Test Item Value Reference Range Interpretation Comments POC-Glucose Meter (test 188 mg/dL 70-110 H : TE STED AT [facility] code = 1538) [address] [facility] [place] [address]: Director Of Enterprise Architecture/Techni kelle ID = [id number] for RAMNO SPRING Lab Interpretation (test Abnormal code = 51732-5) [facility] [id number] 19:54:37 Test Item Value Reference Range Interpretation Comments POC-GLUCOSE METER 188 mg/dL 70-110 H : TESTED A T [facility] 67[address] (BEAKER) ([facility] = [facility], 1538) [address]: Director Of Enterprise Architecture/Techni kelle ID = [id number] for RAMON FLORES POCT-GLUCOSE [id number] 17:33:41 Test Item Value Reference Range Interpretation Comments POC-GLUCOSE METER 166 mg/dL 70-110 H : TESTED A T [facility] 67[address] (BEAKER) (test code = [facility] [place] [facility], 1538) [address]: Director Of Enterprise Architecture/Techni kelle ID = [id number] for Nitin tyrone Kayla CBC with platelet count + automated [id number] 15:34:06 Test Item Value Reference Range Interpretation Comments WBC (test code = 6690-2) 4.6 See_Comment [A utomated message] The system [employer] generated this result transmitted ref erence range: 3.5 - 10 .5 K/L. The refe rence range was not u sed to interpret this result as normal/abnor mal. RBC (test code = 789-8) 2.86 See_Comment L [Au tomated message] The system [employer] generated this result transmitted ref erence range: 3.93 - 5 .22 M/L. The refe rence range was not u sed to interpret this result as normal/abnor mal. MCHC (test code = 786-4) 32.1 See_Comment L [A utomated message] The system [employer] generated this result transmitted ref erence range: [...] L [Aut omated message] 777-3) The system [employer] generated this result transmitted ref erence range: 150 - 45 0 K/CU MM. The referen ce range was not u sed to interpret this result as normal/abnor mal. MPV (test code = 11.0 fL 9.4-12.3 82021-9) nRBC (test code = 413) 0 See_Comment [Aut omated message] The system [employer] generated this result transmitted ref erence range: [...] See_Comment [Aut omated message] 670) The system [employer] generated this result transmitted ref erence range: 1.56 - 6 .13 K/L. The refe rence range was not u sed to interpret this result as normal/abnor mal. # Lymphs (test code = 0.73 See_Comment L [Auto mated message] 414) The system [employer] generated this result transmitted ref erence range: 1.18 - 3 .74 K/L. The refe rence range was not u sed to interpret this result as normal/abnor mal. # Monos (test code = 0.62 See_Comment H [Autom ated message] 415) The system [employer] generated this result transmitted ref erence range: 0.24 - 0 .36 K/L. The refe rence range was not u sed to interpret this result as normal/abnor mal. # Eos (test code = 416) 0.24 See_Comment [Au tomated message] The system [employer] generated this result transmitted ref erence range: 0.04 - 0 .36 K/L. The refe rence range was not u sed to interpret this result as normal/abnor mal. # Baso (test code = 417) 0.04 See_Comment [A utomated message] The system [employer] generated this result transmitted ref erence range: 0.01 - 0 .08 K/L. The refe rence range was not u sed to interpret this result as normal/abnor mal. Immature 0 % 0-1 Granulocytes-Relative (test code = 2801) Lab Interpretation (test Abnormal code = 44379-7) [facility] with platelet count + automated [id number] 15:34:06 Test Item Value Reference Range Interpretation Comments WBC (test code = 6690-2) 4.6 See_Comment [A utomated message] The system [employer] generated this result transmitted ref erence range: 3.5 - 10 .5 K/L. The refe rence range was not u sed to interpret this result as normal/abnor mal. RBC (test code = 789-8) 2.86 See_Comment L [Au tomated message] The system [employer] generated this result transmitted ref erence range: 3.93 - 5 .22 M/L. The refe rence range was not u sed to interpret this result as normal/abnor mal. MCHC (test code = 786-4) 32.1 See_Comment L [A utomated message] The system [employer] generated this result transmitted ref erence range: [...] L [Aut omated message] 777-3) The system [employer] generated this result transmitted ref erence range: 150 - 45 0 K/CU MM. The referen ce range was not u sed to interpret this result as normal/abnor mal. MPV (test code = 11.0 fL 9.4-12.3 36796-5) nRBC (test code = 413) 0 See_Comment [Aut omated message] The system [employer] generated this result transmitted ref erence range: [...] See_Comment [Aut omated message] 670) The system [employer] generated this result transmitted ref erence range: 1.56 - 6 .13 K/L. The refe rence range was not u sed to interpret this result as normal/abnor mal. # Lymphs (test code = 0.73 See_Comment L [Auto mated message] 414) The system [employer] generated this result transmitted ref erence range: 1.18 - 3 .74 K/L. The refe rence range was not u sed to interpret this result as normal/abnor mal. # Monos (test code = 0.62 See_Comment H [Autom ated message] 415) The system [employer] generated this result transmitted ref erence range: 0.24 - 0 .36 K/L. The refe rence range was not u sed to interpret this result as normal/abnor mal. # Eos (test code = 416) 0.24 See_Comment [Au tomated message] The system [employer] generated this result transmitted ref erence range: 0.04 - 0 .36 K/L. The refe rence range was not u sed to interpret this result as normal/abnor mal. # Baso (test code = 417) 0.04 See_Comment [A utomated message] The system [employer] generated this result transmitted ref erence range: 0.01 - 0 .08 K/L. The refe rence range was not u sed to interpret this result as normal/abnor mal. Immature 0 % 0-1 Granulocytes-Relative (test code = 2801) Lab Interpretation (test Abnormal code = 85637-4) [facility] with platelet count + automated [id number] 15:34:06 Test Item Value Reference Range Interpretation Comments WBC (test code = 6690-2) 4.6 See_Comment [A utomated message] The system [employer] generated this result transmitted ref erence range: 3.5 - 10 .5 K/L. The refe rence range was not u sed to interpret this result as normal/abnor mal. RBC (test code = 789-8) 2.86 See_Comment L [Au tomated message] The system [employer] generated this result transmitted ref erence range: 3.93 - 5 .22 M/L. The refe rence range was not u sed to interpret this result as normal/abnor mal. MCHC (test code = 786-4) 32.1 See_Comment L [A utomated message] The system [employer] generated this result transmitted ref erence range: [...] L [Aut omated message] 777-3) The system [employer] generated this result transmitted ref erence range: 150 - 45 0 K/CU MM. The referen ce range was not u sed to interpret this result as normal/abnor mal. MPV (test code = 11.0 fL 9.4-12.3 93837-7) nRBC (test code = 413) 0 See_Comment [Aut omated message] The system [employer] generated this result transmitted ref erence range: [...] See_Comment [Aut omated message] 670) The system [employer] generated this result transmitted ref erence range: 1.56 - 6 .13 K/L. The refe rence range was not u sed to interpret this result as normal/abnor mal. # Lymphs (test code = 0.73 See_Comment L [Auto mated message] 414) The system [employer] generated this result transmitted ref erence range: 1.18 - 3 .74 K/L. The refe rence range was not u sed to interpret this result as normal/abnor mal. # Monos (test code = 0.62 See_Comment H [Autom ated message] 415) The system [employer] generated this result transmitted ref erence range: 0.24 - 0 .36 K/L. The refe rence range was not u sed to interpret this result as normal/abnor mal. # Eos (test code = 416) 0.24 See_Comment [Au tomated message] The system [employer] generated this result transmitted ref erence range: 0.04 - 0 .36 K/L. The refe rence range was not u sed to interpret this result as normal/abnor mal. # Baso (test code = 417) 0.04 See_Comment [A utomated message] The system [employer] generated this result transmitted ref erence range: 0.01 - 0 .08 K/L. The refe rence range was not u sed to interpret this result as normal/abnor mal. Immature 0 % 0-1 Granulocytes-Relative (test code = 2801) Lab Interpretation (test Abnormal code = 87658-6) [facility] with platelet count + automated [id number] 15:34:06 Test Item Value Reference Range Interpretation Comments WBC (test code = 6690-2) 4.6 See_Comment [A utomated message] The system [employer] generated this result transmitted ref erence range: 3.5 - 10 .5 K/L. The refe rence range was not u sed to interpret this result as normal/abnor mal. RBC (test code = 789-8) 2.86 See_Comment L [Au tomated message] The system [employer] generated this result transmitted ref erence range: 3.93 - 5 .22 M/L. The refe rence range was not u sed to interpret this result as normal/abnor mal. MCHC (test code = 786-4) 32.1 See_Comment L [A utomated message] The system [employer] generated this result transmitted ref erence range: [...] L [Aut omated message] 777-3) The system [employer] generated this result transmitted ref erence range: 150 - 45 0 K/CU MM. The referen ce range was not u sed to interpret this result as normal/abnor mal. MPV (test code = 11.0 fL 9.4-12.3 59008-6) nRBC (test code = 413) 0 See_Comment [Aut omated message] The system [employer] generated this result transmitted ref erence range: [...] See_Comment [Aut omated message] 670) The system [employer] generated this result transmitted ref erence range: 1.56 - 6 .13 K/L. The refe rence range was not u sed to interpret this result as normal/abnor mal. # Lymphs (test code = 0.73 See_Comment L [Auto mated message] 414) The system [employer] generated this result transmitted ref erence range: 1.18 - 3 .74 K/L. The refe rence range was not u sed to interpret this result as normal/abnor mal. # Monos (test code = 0.62 See_Comment H [Autom ated message] 415) The system [employer] generated this result transmitted ref erence range: 0.24 - 0 .36 K/L. The refe rence range was not u sed to interpret this result as normal/abnor mal. # Eos (test code = 416) 0.24 See_Comment [Au tomated message] The system [employer] generated this result transmitted ref erence range: 0.04 - 0 .36 K/L. The refe rence range was not u sed to interpret this result as normal/abnor mal. # Baso (test code = 417) 0.04 See_Comment [A utomated message] The system [employer] generated this result transmitted ref erence range: 0.01 - 0 .08 K/L. The refe rence range was not u sed to interpret this result as normal/abnor mal. Immature 0 % 0-1 Granulocytes-Relative (test code = 2801) Lab Interpretation (test Abnormal code = 74549-8) [facility] with platelet count + automated [id number] 15:34:06 Test Item Value Reference Range Interpretation Comments WBC (test code = 6690-2) 4.6 See_Comment [A utomated message] The system [employer] generated this result transmitted ref erence range: 3.5 - 10 .5 K/L. The refe rence range was not u sed to interpret this result as normal/abnor mal. RBC (test code = 789-8) 2.86 See_Comment L [Au tomated message] The system [employer] generated this result transmitted ref erence range: 3.93 - 5 .22 M/L. The refe rence range was not u sed to interpret this result as normal/abnor mal. MCHC (test code = 786-4) 32.1 See_Comment L [A utomated message] The system [employer] generated this result transmitted ref erence range: [...] L [Aut omated message] 777-3) The system [employer] generated this result transmitted ref erence range: 150 - 45 0 K/CU MM. The referen ce range was not u sed to interpret this result as normal/abnor mal. MPV (test code = 11.0 fL 9.4-12.3 27809-0) nRBC (test code = 413) 0 See_Comment [Aut omated message] The system [employer] generated this result transmitted ref erence range: [...] See_Comment [Aut omated message] 670) The system [employer] generated this result transmitted ref erence range: 1.56 - 6 .13 K/L. The refe rence range was not u sed to interpret this result as normal/abnor mal. # Lymphs (test code = 0.73 See_Comment L [Auto mated message] 414) The system [employer] generated this result transmitted ref erence range: 1.18 - 3 .74 K/L. The refe rence range was not u sed to interpret this result as normal/abnor mal. # Monos (test code = 0.62 See_Comment H [Autom ated message] 415) The system [employer] generated this result transmitted ref erence range: 0.24 - 0 .36 K/L. The refe rence range was not u sed to interpret this result as normal/abnor mal. # Eos (test code = 416) 0.24 See_Comment [Au tomated message] The system [employer] generated this result transmitted ref erence range: 0.04 - 0 .36 K/L. The refe rence range was not u sed to interpret this result as normal/abnor mal. # Baso (test code = 417) 0.04 See_Comment [A utomated message] The system [employer] generated this result transmitted ref erence range: 0.01 - 0 .08 K/L. The refe rence range was not u sed to interpret this result as normal/abnor mal. Immature 0 % 0-1 Granulocytes-Relative (test code = 2801) Lab Interpretation (test Abnormal code = 69016-0) [facility] with platelet count + automated [id number] 15:34:06 Test Item Value Reference Range Interpretation Comments WBC (test code = 6690-2) 4.6 See_Comment [A utomated message] The system [employer] generated this result transmitted ref erence range: 3.5 - 10 .5 K/L. The refe rence range was not u sed to interpret this result as normal/abnor mal. RBC (test code = 789-8) 2.86 See_Comment L [Au tomated message] The system [employer] generated this result transmitted ref erence range: 3.93 - 5 .22 M/L. The refe rence range was not u sed to interpret this result as normal/abnor mal. MCHC (test code = 786-4) 32.1 See_Comment L [A utomated message] The system [employer] generated this result transmitted ref erence range: [...] L [Aut omated message] 777-3) The system [employer] generated this result transmitted ref erence range: 150 - 45 0 K/CU MM. The referen ce range was not u sed to interpret this result as normal/abnor mal. MPV (test code = 11.0 fL 9.4-12.3 45006-9) nRBC (test code = 413) 0 See_Comment [Aut omated message] The system [employer] generated this result transmitted ref erence range: [...] See_Comment [Aut omated message] 670) The system [employer] generated this result transmitted ref erence range: 1.56 - 6 .13 K/L. The refe rence range was not u sed to interpret this result as normal/abnor mal. # Lymphs (test code = 0.73 See_Comment L [Auto mated message] 414) The system [employer] generated this result transmitted ref erence range: 1.18 - 3 .74 K/L. The refe rence range was not u sed to interpret this result as normal/abnor mal. # Monos (test code = 0.62 See_Comment H [Autom ated message] 415) The system [employer] generated this result transmitted ref erence range: 0.24 - 0 .36 K/L. The refe rence range was not u sed to interpret this result as normal/abnor mal. # Eos (test code = 416) 0.24 See_Comment [Au tomated message] The system [employer] generated this result transmitted ref erence range: 0.04 - 0 .36 K/L. The refe rence range was not u sed to interpret this result as normal/abnor mal. # Baso (test code = 417) 0.04 See_Comment [A utomated message] The system [employer] generated this result transmitted ref erence range: 0.01 - 0 .08 K/L. The refe rence range was not u sed to interpret this result as normal/abnor mal. Immature 0 % 0-1 Granulocytes-Relative (test code = 2801) Lab Interpretation (test Abnormal code = 95411-2) [facility] with platelet count + automated [id number] 15:34:06 Test Item Value Reference Range Interpretation Comments WBC (test code = 6690-2) 4.6 See_Comment [A utomated message] The system [employer] generated this result transmitted ref erence range: 3.5 - 10 .5 K/L. The refe rence range was not u sed to interpret this result as normal/abnor mal. RBC (test code = 789-8) 2.86 See_Comment L [Au tomated message] The system [employer] generated this result transmitted ref erence range: 3.93 - 5 .22 M/L. The refe rence range was not u sed to interpret this result as normal/abnor mal. MCHC (test code = 786-4) 32.1 See_Comment L [A utomated message] The system [employer] generated this result transmitted ref erence range: [...] = 57 See_Comment L [Aut omated message] 837-3) The system [employer] generated this result transmitted ref erence range: 150 - 45 0 K/CU MM. The referen ce range was not u sed to interpret this result as normal/abnor mal. MPV (test code = 11.0 fL 9.4-12.3 10255-7) nRBC (test code = 413) 0 See_Comment [Aut omated message] The system [employer] generated this result transmitted ref erence range: [...] See_Comment [Aut omated message] 670) The system [employer] generated this result transmitted ref erence range: 1.56 - 6 .13 K/L. The refe rence range was not u sed to interpret this result as normal/abnor mal. # Lymphs (test code = 0.73 See_Comment L [Auto mated message] 414) The system [employer] generated this result transmitted ref erence range: 1.18 - 3 .74 K/L. The refe rence range was not u sed to interpret this result as normal/abnor mal. # Monos (test code = 0.62 See_Comment H [Autom ated message] 415) The system [employer] generated this result transmitted ref erence range: 0.24 - 0 .36 K/L. The refe rence range was not u sed to interpret this result as normal/abnor mal. # Eos (test code = 416) 0.24 See_Comment [Au tomated message] The system [employer] generated this result transmitted ref erence range: 0.04 - 0 .36 K/L. The refe rence range was not u sed to interpret this result as normal/abnor mal. # Baso (test code = 417) 0.04 See_Comment [A utomated message] The system [employer] generated this result transmitted ref erence range: 0.01 - 0 .08 K/L. The refe rence range was not u sed to interpret this result as normal/abnor mal. Immature 0 % 0-1 Granulocytes-Relative (test code = 2801) Lab Interpretation (test Abnormal code = 01236-5) [facility] with platelet count + automated [id number] 15:34:06 Test Item Value Reference Range Interpretation Comments WBC (test code = 6690-2) 4.6 See_Comment [A utomated message] The system [employer] generated this result transmitted ref erence range: 3.5 - 10 .5 K/L. The refe rence range was not u sed to interpret this result as normal/abnor mal. RBC (test code = 789-8) 2.86 See_Comment L [Au tomated message] The system [employer] generated this result transmitted ref erence range: 3.93 - 5 .22 M/L. The refe rence range was not u sed to interpret this result as normal/abnor mal. MCHC (test code = 786-4) 32.1 See_Comment L [A utomated message] The system [employer] generated this result transmitted ref erence range: [...] L [Aut omated message] 777-3) The system [employer] generated this result transmitted ref erence range: 150 - 45 0 K/CU MM. The referen ce range was not u sed to interpret this result as normal/abnor mal. MPV (test code = 11.0 fL 9.4-12.3 48006-8) nRBC (test code = 413) 0 See_Comment [Aut omated message] The system [employer] generated this result transmitted ref erence range: [...] See_Comment [Aut omated message] 670) The system [employer] generated this result transmitted ref erence range: 1.56 - 6 .13 K/L. The refe rence range was not u sed to interpret this result as normal/abnor mal. # Lymphs (test code = 0.73 See_Comment L [Auto mated message] 414) The system [employer] generated this result transmitted ref erence range: 1.18 - 3 .74 K/L. The refe rence range was not u sed to interpret this result as normal/abnor mal. # Monos (test code = 0.62 See_Comment H [Autom ated message] 415) The system [employer] generated this result transmitted ref erence range: 0.24 - 0 .36 K/L. The refe rence range was not u sed to interpret this result as normal/abnor mal. # Eos (test code = 416) 0.24 See_Comment [Au tomated message] The system [employer] generated this result transmitted ref erence range: 0.04 - 0 .36 K/L. The refe rence range was not u sed to interpret this result as normal/abnor mal. # Baso (test code = 417) 0.04 See_Comment [A utomated message] The system [employer] generated this result transmitted ref erence range: 0.01 - 0 .08 K/L. The refe rence range was not u sed to interpret this result as normal/abnor mal. Immature 0 % 0-1 Granulocytes-Relative (test code = 2801) Lab Interpretation (test Abnormal code = 37459-9) [facility] with platelet count + automated [id number] 15:34:06 Test Item Value Reference Range Interpretation Comments WBC (test code = 6690-2) 4.6 See_Comment [A utomated message] The system [employer] generated this result transmitted ref erence range: 3.5 - 10 .5 K/L. The refe rence range was not u sed to interpret this result as normal/abnor mal. RBC (test code = 789-8) 2.86 See_Comment L [Au tomated message] The system [employer] generated this result transmitted ref erence range: 3.93 - 5 .22 M/L. The refe rence range was not u sed to interpret this result as normal/abnor mal. MCHC (test code = 786-4) 32.1 See_Comment L [A utomated message] The system AwoX generated this result transmitted ref erence range: [...] L [Aut omated message] 777-3) The system Awo[employer] generated this result transmitted ref erence range: 150 - 45 0 K/CU MM. The referen ce range was not u sed to interpret this result as normal/abnor mal. MPV (test code = 11.0 fL 9.4-12.3 21666-0) nRBC (test code = 413) 0 See_Comment [Aut omated message] The system AwoX generated this result transmitted ref erence range: [...] See_Comment [Aut omated message] 670) The system Awo[employer] generated this result transmitted ref erence range: 1.56 - 6 .13 K/L. The refe rence range was not u sed to interpret this result as normal/abnor mal. # Lymphs (test code = 0.73 See_Comment L [Auto mated message] 414) The system Awo[employer] generated this result transmitted ref erence range: 1.18 - 3 .74 K/L. The refe rence range was not u sed to interpret this result as normal/abnor mal. # Monos (test code = 0.62 See_Comment H [Autom ated message] 415) The system Awo[employer] generated this result transmitted ref erence range: 0.24 - 0 .36 K/L. The refe rence range was not u sed to interpret this result as normal/abnor mal. # Eos (test code = 416) 0.24 See_Comment [Au tomated message] The system AwoX generated this result transmitted ref erence range: 0.04 - 0 .36 K/L. The refe rence range was not u sed to interpret this result as normal/abnor mal. # Baso (test code = 417) 0.04 See_Comment [A utomated message] The system Awo[employer] generated this result transmitted ref erence range: 0.01 - 0 .08 K/L. The refe rence range was not u sed to interpret this result as normal/abnor mal. Immature 0 % 0-1 Granulocytes-Relative (test code = 2801) Lab Interpretation (test Abnormal code = 15956-3) [facility] with platelet count + automated [id number] 15:34:06 Test Item Value Reference Range Interpretation Comments WBC (test code = 6690-2) 4.6 See_Comment [A utomated message] The system AwoX generated this result transmitted ref erence range: 3.5 - 10 .5 K/L. The refe rence range was not u sed to interpret this result as normal/abnor mal. RBC (test code = 789-8) 2.86 See_Comment L [Au tomated message] The system AwoX generated this result transmitted ref erence range: 3.93 - 5 .22 M/L. The refe rence range was not u sed to interpret this result as normal/abnor mal. MCHC (test code = 786-4) 32.1 See_Comment L [A utomated message] The system AwoX generated this result transmitted ref erence range: [...] L [Aut omated message] 777-3) The system Awo[employer] generated this result transmitted ref erence range: 150 - 45 0 K/CU MM. The referen ce range was not u sed to interpret this result as normal/abnor mal. MPV (test code = 11.0 fL 9.4-12.3 97146-0) nRBC (test code = 413) 0 See_Comment [Aut omated message] The system AwoX generated this result transmitted ref erence range: [...] See_Comment [Aut omated message] 670) The system Awo[employer] generated this result transmitted ref erence range: 1.56 - 6 .13 K/L. The refe rence range was not u sed to interpret this result as normal/abnor mal. # Lymphs (test code = 0.73 See_Comment L [Auto mated message] 414) The system AwoX generated this result transmitted ref erence range: 1.18 - 3 .74 K/L. The refe rence range was not u sed to interpret this result as normal/abnor mal. # Monos (test code = 0.62 See_Comment H [Autom ated message] 415) The system Awo[employer] generated this result transmitted ref erence range: 0.24 - 0 .36 K/L. The refe rence range was not u sed to interpret this result as normal/abnor mal. # Eos (test code = 416) 0.24 See_Comment [Au tomated message] The system AwoX generated this result transmitted ref erence range: 0.04 - 0 .36 K/L. The refe rence range was not u sed to interpret this result as normal/abnor mal. # Baso (test code = 417) 0.04 See_Comment [A utomated message] The system Awo[employer] generated this result transmitted ref erence range: 0.01 - 0 .08 K/L. The refe rence range was not u sed to interpret this result as normal/abnor mal. Immature 0 % 0-1 Granulocytes-Relative (test code = 2801) Lab Interpretation (test Abnormal code = 26456-8) [facility] W/PLT COUNT & AUTO [id number] 15:34:06 Test Item Value Reference Range Interpretation [...] PERCENT (BEAKER) (test code = 2801) POCT-GLUCOSE [id number] 12:42:57 Test Item Value Reference Range Interpretation Comments POC-GLUCOSE METER 216 mg/dL 70-110 H : TESTED A T [facility] (BEAKER) (test code = QUIQUEANTELMO Vaca [facility], 1538) [address]: Director Of Enterprise Architecture/Techni kelle ID = [id number] for Kayla Emanuel Prepare Leuko-Red [id number] 10:49:00 Test Item Value Reference Range Interpretation Comments CROSSMATCH (test code = 2264) COMPATIBLE Unit ABO (test code = O Pos 5756553) UNIT NUMBER (test code = [id number] 934-0) Status (test code = 6276905) ISSUED Blood Bank Product (test code RED BLOOD CELLS = 2263) PRODUCT CODE (test code = Z1435J48 933-2) [facility] [id number] 10:49:00 Test Item Value Reference Range Interpretation Comments CROSSMATCH (test code = 2264) COMPATIBLE Unit ABO (test code = O Pos 3588334) UNIT NUMBER (test code = [id number] 934-0) Status (test code = 3575278) ISSUED Blood Bank Product (test code RED BLOOD CELLS = 2263) PRODUCT CODE (test code = S4811I30 933-2) [facility] [id number] 10:49:00 Test Item Value Reference Range Interpretation Comments CROSSMATCH (test code = 2264) COMPATIBLE Unit ABO (test code = O Pos 0136013) UNIT NUMBER (test code = [id number] 934-0) Status (test code = 7769825) ISSUED Blood Bank Product (test code RED BLOOD CELLS = 2263) PRODUCT CODE (test code = X1038B30 933-2) [facility] [id number] 08:43:51 Test Item Value Reference Range Interpretation Comments POC-GLUCOSE METER 209 mg/dL 70-110 H : TESTED A T [facility] (BEAKER) (test code = YUDY [place], 1538) [address]: Director Of Enterprise Architecture/Techni kelle ID = [id number] for Kayla Emanuel RAD, CHEST, 1 VIEW, NON [id number] 07:26:00Reason for exam:->post-opShould this be performed at the bedside?->Yes [facility] : 1955 Sex: FFINAL REPORT RAD, CHEST, 1 VIEW, NON DEPT INDICATION: post-op COMPARISON: Prior day's exam FINDINGS: Portable frontal view of the chest. IMPRESSION: Support Lines: Central catheter tip overlies the atriocaval junction. Pacer device. Lungs and pleura: Small left effusion and left basilar atelectasis. Mild diffuse thickening persists. No significant pneumothorax. Heart and mediastinum: Stable contours. Stable surgical changes. Additional findings: None. Signed: Bayron Cosme MDReport Verified Date/Time: 06/28/2021 07:26:22 BASIC METABOLIC [id number] 04:56:45 Test Item Value Reference Range Interpretation [...] S NOT APPLICABLE FOR DIALYSIS PATIEN TS. Director Of Enterprise Architecture ID - PIAYA [id number] 04:48:49 Test Item Value Reference Range Interpretation Comments MAGNESIUM (BEAKER) 2.0 mg/dL 1.6-2.6 Specimen slightly (test code = 627) hemolyzed Director Of Enterprise Architecture ID - PIKEZIA [id number] 04:48:49 Test Item Value Reference Range Interpretation Comments PHOSPHORUS (BEAKER) 2.5 mg/dL 2.3-4.7 Specimen slightly (test code = 604) hemolyzed Director Of Enterprise Architecture ID - LIANA LCBC (HEMOGRAM ONLY)2021-06-28 04:28:17 Test Item Value [...] WBC 0-0 (test code = 413) POCT-GLUCOSE [id number] 21:38:17 Test Item Value Reference Range Interpretation Comments POC-GLUCOSE METER 200 mg/dL 70-110 H : TESTED A T [facility] 6720 (BEAKER) (test code = [facility], 153) [address]28: Director Of Enterprise Architecture/Techni kelle ID = [id number] for RO FRANCES, MACKENZIE POCT-GLUCOSE [id number] 18:02:45 Test Item Value Reference Range Interpretation Comments POC-GLUCOSE METER 217 mg/dL 70-110 H : TESTED A T [facility] 6720 (BEAKER) (test code = [facility], 153) 13492: Director Of Enterprise Architecture/Techni kelle ID = [id number] for Nitin tyrone Kayla POCT-GLUCOSE [id number] 15:14:18 Test Item Value Reference Range Interpretation Comments POC-GLUCOSE METER 229 mg/dL 70-110 H : [facility] (test code = YUDY [place], 1538) [address]: Director Of Enterprise Architecture/Techni kelle ID = [id number] for Kayla Emanuel POCT-GLUCOSE [id number] 12:20:23 Test Item Value Reference Range Interpretation Comments POC-GLUCOSE METER 160 mg/dL 70-110 H : TESTED A T [facility] [address] ([place]) (test code = YUDY Vaca [facility], 1538) [address]: Director Of Enterprise Architecture/Techni kelle ID = [id number] for Kayla Emanuel SARS-CoV2/RT-PCR (Asymptomatic ONLY)2021-06-27 10:39:35 Test Item Value Reference Range Interpretation Comments SARS-COV2/RT-PCR Negative Not Detected, (test code = Negative, See 41323-2) external report for linked test SARS-COV-2 [facility] (test code = 39723-1) BRANDI (test code = Negative result for [...] of the Act. Fact Sheet for Healthcare Providers:https://www.[employer]ivance/sites/default/f radha/product/documents/F act_Sheet_HC_Providers_L isw_CGRU-DcQ-4.pdf Fact Sheet for Healthcare Patients:https://www.[employer]/sites/default/fi les/product/documents/Fa ct_Sheet_Patients_Lyra_S ARS-CoV-2.pdf Performing Laboratory:[facility] [place] [address] [facility] (Asymptomatic ONLY)2021-06-27 10:39:35 Test Item Value Reference Range Interpretation Comments SARS-COV2/RT-PCR Negative Not Detected, (test code = Negative, See 88416-2) external report for linked test SARS-COV-2 [facility] (test code = 92316-3) BRANDI (test code = Negative result for [...] of the Act. Fact Sheet for Healthcare Providers:https://www.[employer]iv[employer]/sites/default/f radha/product/documents/F act_Sheet_HC_Providers_L vwq_FNQH-EyF-0.pdf Fact Sheet for Healthcare Patients:https://www.[employer]/sites/default/fi les/product/documents/Fa ct_Sheet_Patients_Lyra_S ARS-CoV-2.pdf Performing Laboratory:[facility], [place] [address] [place], [place] [address]ARS-CoV2/RT-PCR (Asymptomatic ONLY)2021-06-27 10:39:35 Test Item Value Reference Range Interpretation Comments SARS-COV2/RT-PCR Negative Not Detected, (test code = Negative, See 47946-8) external report for linked test SARS-COV-2 [facility] (test code = 84596-3) BRANDI (test code = Negative result for [...] of the Act. Fact Sheet for Healthcare Providers:https://www.Mediv[employer]/sites/default/f radha/product/documents/F act_Sheet_HC_Providers_L uzy_MMKW-IoE-3.pdf Fact Sheet for Healthcare Patients:https://www.[employer]/sites/default/fi les/product/documents/Fa ct_Sheet_Patients_Lyra_S ARS-CoV-2.pdf Performing Laboratory:[facility] [facility], [place] [address] [place], [place] [address]ARS-CoV2/RT-PCR (Asymptomatic ONLY)2021-06-27 10:39:35 Test Item Value Reference Range Interpretation Comments SARS-COV2/RT-PCR Negative Not Detected, (test code = Negative, See 86348-1) external report for linked test SARS-COV-2 [facility] (test code = 25433-2) BRANDI (test code = Negative result for [...] of the Act. Fact Sheet for Healthcare Providers:https://www.Medivance/sites/default/f radha/product/documents/F act_Sheet_HC_Providers_L cgq_PEMI-KdB-5.pdf Fact Sheet for Healthcare Patients:https://www.[employer]/sites/default/fi les/product/documents/Fa ct_Sheet_Patients_Lyra_S ARS-CoV-2.pdf Performing Laboratory:[facility]-CoV2/RT-PCR (Asymptomatic ONLY)2021-06-27 10:39:35 Test Item Value Reference Range Interpretation Comments SARS-COV2/RT-PCR Negative Not Detected, (test code = Negative, See 21831-6) external report for linked test SARS-COV-2 [facility] (test code = 51059-5) BRANDI (test code = Negative result for [...] of the Act. Fact Sheet for Healthcare Providers:https://www.Medivance/sites/default/f radha/product/documents/F act_Sheet_HC_Providers_L aeo_NULT-QiO-1.pdf Fact Sheet for Healthcare Patients:https://www.[employer]/sites/default/fi les/product/documents/Fa ct_Sheet_Patients_Lyra_S ARS-CoV-2.pdf Performing Laboratory:[facility] [place] [address] [facility] (Asymptomatic ONLY)2021-06-27 10:39:35 Test Item Value Reference Range Interpretation Comments SARS-COV2/RT-PCR Negative Not Detected, (test code = Negative, See 42849-9) external report for linked test SARS-COV-2 [facility] (test code = 48475-9) BRANDI (test code = Negative result for [...] of the Act. Fact Sheet for Healthcare Providers:https://www.Medivance/sites/default/f radha/product/documents/F act_Sheet_HC_Providers_L bpf_WNBM-RbC-4.pdf Fact Sheet for Healthcare Patients:https://www.[employer]/sites/default/fi les/product/documents/Fa ct_Sheet_Patients_Lyra_S ARS-CoV-2.pdf Performing Laboratory:[facility] [place] [address] [facility] (Asymptomatic ONLY)2021-06-27 10:39:35 Test Item Value Reference Range Interpretation Comments SARS-COV2/RT-PCR Negative Not Detected, (test code = Negative, See 45483-6) external report for linked test SARS-COV-2 [facility] (test code = 50622-8) BRANDI (test code = Negative result for [...] of the Act. Fact Sheet for Healthcare Providers:https://www.Medivance/sites/default/f radha/product/documents/F act_Sheet_HC_Providers_L xad_NKEI-IvF-0.pdf Fact Sheet for Healthcare Patients:https://www.[employer]/sites/default/fi les/product/documents/Fa ct_Sheet_Patients_Lyra_S ARS-CoV-2.pdf Performing Laboratory:[facility] [place] [address] [facility]OV[facility] ([facility])2021-06-27 10:39:35 Test Item Value Reference Range Interpretation Comments SARS-COV2/RT-PCR (test Negative Not Detected, Negative, code = 2252876) See external report for linked test SARS-COV-2 PERFORMING LAB [facility] (test code = 6890302) Negative result for this test determines that [...] justifying the authorization of the emergency use ofin vitro diagnostic tests for detection and/or diagnosis of COVID-19 is terminated under Section 564(b)(2) of the Act or the EUA is revoked under Section 564(g) of the Act.Fact Sheet for Healthcare Prov iders:https://www.[employer]/sites/default/files/product/documents/Fact_Sheet_HC _Xkrdrcksk_Geza_AHUA-JoZ-3.pdfFact Sheet for Healthcare Patients:https://www.[employer]/sites/default/files/product/docume nts/Gfor_Gdjda_Zpwxralx_Slyw_RAFI-TxD-8.pdfPerforming Laboratory:[facility], [place] [address]UYEZ-AAKKDDR METER 2021-06-27 08:35:14 Test Item Value Reference Range Interpretation Comments POC-GLUCOSE METER 99 mg/dL 70-110 : TESTED A T [facility] (BEAKER) (test code = YUD[place], 1538) [address]: Director Of Enterprise Architecture/Techni kelle ID = [id number] for Kayla Arenas RAD, CHEST, 1 VIEW, NON [id number] 08:17:00Reason for exam:->post-opShould this be performed at the bedside?->Yes [facility] 1955 Sex: FFINAL REPORT Chest, one view HISTORY: Postoperative Comparison: 06/26/2021 Findings: Lungs: Mild bilateral interstitial opacities, likely pulmonary venous congestion. No significant change. Heart: Unchanged moderate cardiomegaly. Pleura: No pleural effusion or pneumothorax. Bones: Unremarkable. Lines/tubes: Unchanged in position. Signed: Erlin Carr Verified Date/Time: 06/27/2021 08:17:45 Reading Location: [address] Consult Reading Room BASIC METABOLIC [id number] 05:32:33 Test Item Value Reference Range Interpretation [...] S NOT APPLICABLE FOR DIALYSIS PATIEN TS. Director Of Enterprise Architecture ID - HIEN [id number] 05:23:42 Test Item Value Reference Range Interpretation Comments PHOSPHORUS (BEAKER) (test code = 2.2 mg/dL 2.3-4.7 L 604) Director Of Enterprise Architecture ID - HIEN [id number] 05:23:41 Test Item Value Reference Range Interpretation Comments MAGNESIUM (BEAKER) (test code = 1.8 mg/dL 1.6-2.6 627) Director Of Enterprise Architecture ID - HIEN [id number] 05:19:04 Test Item Value Reference Range Interpretation Comments PTT (test code = 51663-2) 35.8 See_Comment [ Automated message] The system AwoX generated this result transmitted ref erence range: 22.5 - 3 6.0 seconds. The re ference range was not u sed to interpret this result as normal/abnor mal. Lab Interpretation (test Normal code = 05059-3) [facility] 05:19:04 Test Item Value Reference Range Interpretation Comments PTT (test code = 43134-3) 35.8 See_Comment [ Automated message] The system AwoX generated this result transmitted ref erence range: 22.5 - 3 6.0 seconds. The re ference range was not u sed to interpret this result as normal/abnor mal. Lab Interpretation (test Normal code = 59020-0) [facility] Test Item Value Reference Range Interpretation Comments PTT (test code = 01725-7) 35.8 See_Comment [ Automated message] The system AwoX generated this result transmitted ref erence range: 22.5 - 3 6.0 seconds. The re ference range was not u sed to interpret this result as normal/abnor mal. Lab Interpretation (test Normal code = 43964-2) [place] [address]202022-03-26 05:19:04 Test Item Value Reference Range Interpretation Comments PTT (test code = 78377-0) 35.8 See_Comment [ Automated message] The system AwoX generated this result transmitted ref erence range: 22.5 - 3 6.0 seconds. The re ference range was not u sed to interpret this result as normal/abnor mal. Lab Interpretation (test Normal code = 47993-1) [place] [address]22-03-26 05:19:04 Test Item Value Reference Range Interpretation Comments PTT (test code = 25714-4) 35.8 See_Comment [ Automated message] The system AwoX generated this result transmitted ref erence range: 22.5 - 3 6.0 seconds. The re ference range was not u sed to interpret this result as normal/abnor mal. Lab Interpretation (test Normal code = 95759-0) [place] [address]22-03-26 05:19:04 Test Item Value Reference Range Interpretation Comments PTT (test code = 26351-0) 35.8 See_Comment [ Automated message] The system AwoX generated this result transmitted ref erence range: 22.5 - 3 6.0 seconds. The re ference range was not u sed to interpret this result as normal/abnor mal. Lab Interpretation (test Normal code = 73150-4) [place] [address]22-03-26 05:19:04 Test Item Value Reference Range Interpretation Comments PTT (test code = 87338-1) 35.8 See_Comment [ Automated message] The system AwoX generated this result transmitted ref erence range: 22.5 - 3 6.0 seconds. The re ference range was not u sed to interpret this result as normal/abnor mal. Lab Interpretation (test Normal code = 37140-8) [place] [address]22-03-26 05:19:04 Test Item Value Reference Range Interpretation Comments PTT (test code = 76863-2) 35.8 See_Comment [ Automated message] The system AwoX generated this result transmitted ref erence range: 22.5 - 3 6.0 seconds. The re ference range was not u sed to interpret this result as normal/abnor mal. Lab Interpretation (test Normal code = 38139-5) [facility] 05:19:04 Test Item Value Reference Range Interpretation Comments PTT (test code = 96853-4) 35.8 See_Comment [ Automated message] The system AwoX generated this result transmitted ref erence range: 22.5 - 3 6.0 seconds. The re ference range was not u sed to interpret this result as normal/abnor mal. Lab Interpretation (test Normal code = 63877-0) [facility] 05:19:04 Test Item Value Reference Range Interpretation Comments PTT (test code = 05270-7) 35.8 See_Comment [ Automated message] The system AwoX generated this result transmitted ref erence range: 22.5 - 3 6.0 seconds. The re ference range was not u sed to interpret this result as normal/abnor mal. Lab Interpretation (test Normal code = 67128-1) [facility] 05:19:04 Test Item Value Reference Range Interpretation Comments PARTIAL THROMBOPLASTIN TIME 35.8 seconds 22.5-36.0 (BEAKER) (test code = 760) Prothrombin time/[id number] 05:18:23 Test Item Value Reference Interpretation Comments Range Protime (test code = 13.9 See_Comment [Autom ated 0922-2) message] The system which generated this result transmitted reference range : 11.9 - 14.2 seconds. The reference range was not used to interpret this result as normal/abnormal . INR (test code = 1.09 See_Comment [Automated 0961-6) message] The system which generated this result [...] valves. Lab Interpretation Normal (test code = 31734-0) [facility]th[facility]/[id number] 05:18:23 Test Item Value Reference Interpretation Comments [...] to interpret this result as normal/abnormal . BRADNI (test code = RECOMMENDED BRANDI) COUMADIN/WARFARIN INR THERAPY RANGESSTANDARD DOSE: 2.0 - 3.0 Includes: PROPHYLAXIS for venous thrombosis, systemic embolization; TREATMENT for venous thrombosis and/or pulmonary embolus.HIGH RISK: Target INR is 2.5-3.5 for patients with mechanical heart valves. Lab Interpretation Normal (test code = 22433-9) [facility] HospitalProthrombin time/[id number] 05:18:23 Test Item Value Reference Interpretation Comments [...] valves. Lab Interpretation Normal (test code = 85324-9) [facility] HospitalProthrombin time/[id number] 05:18:23 Test Item Value Reference Interpretation Comments [...] valves. Lab Interpretation Normal (test code = 21569-9) [facility] HospitalProthrombin time/[id number] 05:18:23 Test Item Value Reference Interpretation Comments [...] valves. Lab Interpretation Normal (test code = 41153-7) [facility] HospitalProthrombin time/[id number] 05:18:23 Test Item Value Reference Interpretation Comments [...] valves. Lab Interpretation Normal (test code = 82876-5) [facility] HospitalProthrombin time/[id number] 05:18:23 Test Item Value Reference Interpretation Comments Range Protime (test code = 13.9 See_Comment [Autom ated 5902-2) message] The system which generated this result transmitted reference range : 11.9 - 14.2 seconds. The reference range was not used to interpret this result as normal/abnormal . INR (test code = 1.09 See_Comment [Automated ELERTS1-6) message] The system which generated this result [...] valves. Lab Interpretation Normal (test code = 77096-5) [facility] HospitalProthrombin time/[id number] 05:18:23 Test Item Value Reference Interpretation Comments [...] valves. Lab Interpretation Normal (test code = 61853-4) [facility] HospitalProthrombin time/[id number] 05:18:23 Test Item Value Reference Interpretation Comments [...] valves. Lab Interpretation Normal (test code = 39913-0) [facility] HospitalProthrombin time/[id number] 05:18:23 Test Item Value Reference Interpretation Comments [...] valves. Lab Interpretation Normal (test code = 09375-5) [facility] HospitalPROTHROMBIN TIME/[id number] 05:18:23 Test Item Value Reference Range Interpretation Comments PROTIME (BEAKER) 13.9 seconds 11.9-14.2 (test code = 759) INR (BEAKER) (test 1.09 See_Comment [Automat ed message] code = 370) The system AwoX generated this result transmitted ref erence range: [...] WBC 0-0 (test code = 413) POCT-GLUCOSE [id number] 21:11:10 Test Item Value Reference Range Interpretation Comments POC-GLUCOSE METER 158 mg/dL 70-110 H : TESTED A T [facility] (BEAKER) (test code = YUDY Vaca [facility], 1538) [address]: Director Of Enterprise Architecture/Techni kelle ID = [id number] for Re yes, Sairy POCT-GLUCOSE [id number] 19:06:56 Test Item Value Reference Range Interpretation Comments POC-GLUCOSE METER 113 mg/dL 70-110 H : TESTED A T [facility] 6720 (BEAKER) (test code [facility], = 1538) [address]: Director Of Enterprise Architecture/Techni kelle ID = [id number] for Sutt on, Fadi Hemoglobin and euqtgcwtcn9150-66-28 11:43:32 Test Item Value Reference Range Interpretation [...] = 4544-3) BRANDI (test code = BRANDI) Director Of Enterprise Architecture ID - [id number] Lab Interpretation Abnormal (test code = 76399-6) [facility] wjuxbglgej5373-14-38 11:43:32 Test Item Value Reference Range Interpretation [...] = 4544-3) BRANDI (test code = BRANDI) Director Of Enterprise Architecture ID - [id number] Lab Interpretation Abnormal (test code = 83244-1) [facility] and fpbvgbucir0141-71-53 11:43:32 Test Item Value Reference Range Interpretation [...] = 4544-3) BRANDI (test code = BRANDI) Director Of Enterprise Architecture ID - [id number] Lab Interpretation Abnormal (test code = 43536-3) [facility] and gqaygwpvpr6097-86-11 11:43:32 Test Item Value Reference Range Interpretation [...] = 4544-3) BRANDI (test code = BRANDI) Director Of Enterprise Architecture ID - [id number] Lab Interpretation Abnormal (test code = 81881-8) [facility] and miebzlvsbp2397-45-58 11:43:32 Test Item Value Reference Range Interpretation [...] = 4544-3) BRANDI (test code = BRANDI) Director Of Enterprise Architecture ID - [id number] Lab Interpretation Abnormal (test code = 11935-0) [facility] and uumltxulnl6561-17-20 11:43:32 Test Item Value Reference Range Interpretation [...] = 4544-3) BRANDI (test code = BRANDI) Director Of Enterprise Architecture ID - [id number] Lab Interpretation Abnormal (test code = 65891-6) [facility] and ellntwchco1437-32-27 11:43:32 Test Item Value Reference Range Interpretation [...] = 4544-3) BRANDI (test code = BRANDI) Director Of Enterprise Architecture ID - [id number] Lab Interpretation Abnormal (test code = 58511-0) [facility] and pzqalnehed9685-71-64 11:43:32 Test Item Value Reference Range Interpretation [...] = 4544-3) BRANDI (test code = BRANDI) Director Of Enterprise Architecture ID - [id number] Lab Interpretation Abnormal (test code = 01886-2) [facility] and gvzuapeead1956-31-83 11:43:32 Test Item Value Reference Range Interpretation [...] = 4544-3) BRANDI (test code = BRANDI) Director Of Enterprise Architecture ID - [id number] Lab Interpretation Abnormal (test code = 79344-4) [facility] and mavlwuxxpd3767-47-45 11:43:32 Test Item Value Reference Range Interpretation [...] = 4544-3) BRANDI (test code = BRANDI) Director Of Enterprise Architecture ID - [id number] Lab Interpretation Abnormal (test code = 56840-3) [facility] and ikgaupmjgq2074-25-64 11:43:32 Test Item Value Reference Range Interpretation [...] = 4544-3) BRANDI (test code = BRANDI) Director Of Enterprise Architecture ID - [id number] Lab Interpretation Abnormal (test code = 84720-1) [facility] HospitalHEMOGLOBIN AND [id number] 11:43:32 Test Item Value Reference Range Interpretation Comments HEMOGLOBIN (BEAKER) (test code = 8.5 GM/DL 11.2-15.7 L 410) HEMATOCRIT (BEAKER) (test code = 26.8 % 34.1-44.9 L 411) Director Of Enterprise Architecture ID - [id number]-Glucose ddpyd4599-19-94 11:26:36 Test Item Value Reference Range Interpretation Comments POC-Glucose Meter (test 126 mg/dL 70-110 H : TE STED AT [facility] code = 1538) 67[address] [facility], 770 30: Director Of Enterprise Architecture/Techni kelle ID = [id number] for Ector (contract)Meeta Lab Interpretation (test Abnormal code = 19590-3) [facility] HospitalPO[facility]GLUCOSE [id number] 11:26:36 Test Item Value Reference Range Interpretation Comments POC-GLUCOSE METER 126 mg/dL 70-110 H : [facility] (test code = [facility], 1538) 51030: Director Of Enterprise Architecture/Techni kelle ID = [id number] for Brando wayne (contract)Marilee POCT-GLUCOSE [id number] 09:38:49 Test Item Value Reference Range Interpretation Comments POC-GLUCOSE METER 139 mg/dL 70-110 H : [facility] (test code = [facility], 1538) 78592: Director Of Enterprise Architecture/Techni kelle ID = [id number] for SWEETIE GASPAR, TUNNELED CATHETER QAEGOEEBN6849-60-66 08:44:00Reason for Central Line/PICC?->> 21 days of IV infusionReason for exam:->needs antibiotics > 10 days, ESRD, Nephrology does not approve PICC or midline. [facility] : 1955 Sex: FFINAL REPORT History: Need for long-term outpatient antibiotic access. Procedure: Following informed written consent, the patient's left cervical region and anterior chest wall were prepped and draped in the usual sterile manner. All maximum sterile barrier techniques were utilized including handwashing with conventional soap and water, alcohol based skin rubs, skin preparation, catheter, mask, sterile gown, sterile gloves, sterile [...] demonstrates the left internal jugular tunneled central venouscatheter to lie in expected position with its tip in the superior vena cava. No pneumothorax. Ultrasound image of the left internal jugular vein prior to catheter placement shows a patent and compressible vein without evidence for thrombosis. Ultrasound image of the left internal jugular vein was obtained and archived on PACS. Impression: 1. Successful uncomplicated placement of a tunneled left internal jugular central venous catheter. Fluoroscopy time: 0.8 minsEstimated dose reported as (Ka,r): 6.1mGy Signed: Krzysztof Herediaort Verified Date/Time: 06/26/2021 08:44:45 Reading Location: [place] [id number] Angio Body Reading Room RAD, CHEST, 1 VIEW, NON [id number] 08:08:00Reason for exam:->post-opShould this be performed at the bedside?->Yes [facility] 1955 Sex: FFINAL REPORT CLINICAL HISTORY: post-op TECHNIQUE: 1 view of the chest. COMPARISON:06/25/2021 IMPRESSION: There is a new left PICC line near the cavoatrial junction. The right jugular sheath and right chest tube have been removed. No pneumothorax. There are increased hazy bilateral airspace opacities. There is blunting of the right costophrenic angle. The cardiomediastinal silhouetteis magnified by technique with sternotomy wires and a pacemaker. Signed: Fadia Cain Verified Date/Time: 06/26/2021 08:08:37 Reading Location: [facility] Radiology Reading Room Prepare Leuko-Red [id number] 06:01:00 Test Item Value Reference Range Interpretation Comments CROSSMATCH (test code = 2264) COMPATIBLE Unit ABO (test code = O Pos 6666633) UNIT NUMBER (test code = [id number] 934-0) Status (test code = 6504669) ISSUED Blood Bank Product (test code RED BLOOD CELLS = 2263) PRODUCT CODE (test code = P9487Q27 933-2) [facility] HospitalPrepare Leuko-Red [id number] 06:01:00 Test Item Value Reference Range Interpretation Comments CROSSMATCH (test code = 2264) COMPATIBLE Unit ABO (test code = O Pos 7815428) UNIT NUMBER (test code = [id number] 934-0) Status (test code = 9055969) ISSUED Blood Bank Product (test code RED BLOOD CELLS = 2263) PRODUCT CODE (test code = D9567J98 933-2) [facility] Metabolic [id number] 05:17:06 Test Item Value Reference Range Interpretation Comments Sodium (test code = 139 meq/L 466-417 4974-2) Potassium (test code = 3.7 meq/L 3.5-5.1 2823-3) Chloride (test code = 104 meq/L 98-107 2075-0) CO2 (test code = 23 meq/L -2027-9) BUN (test code = 36 mg/dL 7-21 H 3094-0) Creatinine (test code 5.14 mg/dL 0.57-1.25 H = 2160-0) Glucose (test code = 170 mg/dL 70-105 H 2345-7) Calcium (test code = 8.2 mg/dL 8.4-10.2 L 19563-1) EGFR (test code = 8 mL/min/1.73 [place] [address]-2) NOT ACCURATE CREATININE CLEARANCE IN PREDICTING GLOMERULAR FILTRATION RATE . ESTIMATED GFR I S NOT APPLICABLE FOR DIALYSIS PATIENTS. BRANDI (test code = BRANDI) Director Of Enterprise Architecture ID - RAKAN [place] [facility] Interpretation Abnormal (test code = 79512-1) [facility] Metabolic [id number] 05:17:06 Test Item Value Reference Range Interpretation Comments Sodium (test code = 139 meq/L 867-512 6572-2) Potassium (test code = 3.7 meq/L 3.5-5.1 2823-3) Chloride (test code = 104 meq/L 98-107 2075-0) CO2 (test code = 23 meq/L -2027-9) BUN (test code = 36 mg/dL 7-21 H 3094-0) Creatinine (test code 5.14 mg/dL 0.57-1.25 H = 2160-0) Glucose (test code = 170 mg/dL 70-105 H 2345-7) Calcium (test code = 8.2 mg/dL 8.4-10.2 L 06089-4) EGFR (test code = 8 mL/min/1.[place] [address]-6) NOT ACCURATE CREATININE CLEARANCE IN PREDICTING GLOMERULAR FILTRATION RATE . ESTIMATED GFR I S NOT APPLICABLE FOR DIALYSIS PATIENTS. BRANDI (test code = BRANDI) Director Of Enterprise Architecture ID - RAKAN [place] [facility] Interpretation Abnormal (test code = 14238-7) [facility] HospitalBASIC METABOLIC [id number] 05:17:06 Test Item Value Reference Range Interpretation Comments SODIUM (BEAKER) 139 meq/L 136-145 (test code = 381) POTASSIUM (BEAKER) 3.7 meq/L 3.5-5.1 (test code = 379) CHLORIDE (BEAKER) 104 meq/L 98-107 (test code = 382) CO2 (BEAKER) (test 23 meq/L code = 355) BLOOD UREA NITROGEN 36 [...] S NOT APPLICABLE FOR DIALYSIS PATIEN TS. Director Of Enterprise Architecture NORAH BLEDSOE DWkdtygllnl6032-69-93 05:00:22 Test Item Value Reference Range Interpretation Comments Phosphorus (test code = 3.7 mg/dL 2.3-4.7 2777-1) BRANDI (test code = BRANDI) Director Of Enterprise Architecture ID Bassam BLEDSOE W Lab Interpretation (test Normal code = 05541-3) [facility] HospitalPhosphorus2022-03-25 05:00:22 Test Item Value Reference Range Interpretation Comments Phosphorus (test code = 3.7 mg/dL 2.3-4.7 2777-1) BRANDI (test code = BRANDI) Director Of Enterprise Architecture ID Bassam BLEDSOE W Lab Interpretation (test Normal code = 01899-5) [facility] HospitalPHOSPHORUS2022-03-25 05:00:22 Test Item Value Reference Range Interpretation Comments PHOSPHORUS (BEAKER) (test code = 3.7 mg/dL 2.3-4.7 604) Director Of Enterprise Architecture ID - RAKAN AZaddxfdwm4809-55-54 05:00:21 Test Item Value Reference Range Interpretation Comments Magnesium (test code = 2.2 mg/dL 1.6-2.6 15241-5) BRANDI (test code = BRANDI) Director Of Enterprise Architecture ID Bassam BLEDSOE W Lab Interpretation (test Normal code = 91666-8) [facility] HospitalMagnesium2022-03-25 05:00:21 Test Item Value Reference Range Interpretation Comments Magnesium (test code = 2.2 mg/dL 1.6-2.6 88464-0) BRANDI (test code = BRANDI) Director Of Enterprise Architecture ID - RAKAN W Lab Interpretation (test Normal code = 54297-3) [facility] HospitalMAGNESIUM2022-03-25 05:00:21 Test Item Value Reference Range Interpretation Comments MAGNESIUM (BEAKER) (test code = 2.2 mg/dL 1.6-2.6 627) Director Of Enterprise Architecture ID Bassam BLEDSOE [id number] 04:21:04 Test Item Value Reference Range Interpretation Comments PTT (test code = 36173-0) 35.7 See_Comment [ Automated message] The system AwoX generated this result transmitted ref erence range: 22.5 - 3 6.0 seconds. The re ference range was not u sed to interpret this result as normal/abnor mal. Lab Interpretation (test Normal code = 57299-5) [facility] HospitalaPTT2022-03-25 04:21:04 Test Item Value Reference Range Interpretation Comments PTT (test code = 87263-4) 35.7 See_Comment [ Automated message] The system Awo[employer] generated this result transmitted ref erence range: 22.5 - 3 6.0 seconds. The re ference range was not u sed to interpret this result as normal/abnor mal. Lab Interpretation (test Normal code = 40291-3) [facility] HospitalAPTT2022-03-25 04:21:04 Test Item Value Reference Range Interpretation Comments PARTIAL THROMBOPLASTIN TIME 35.7 seconds 22.5-36.0 (BEAKER) (test code = 760) Prothrombin time/[id number] 04:20:24 Test Item Value Reference Interpretation Comments [...] valves. Lab Interpretation Normal (test code = 15556-1) [facility] HospitalProthrombin time/[id number] 04:20:24 Test Item Value Reference Interpretation Comments [...] valves. Lab Interpretation Normal (test code = 04243-0) [facility] HospitalPROTHROMBIN TIME/[id number] 04:20:24 Test Item Value Reference Range Interpretation Comments PROTIME (BEAKER) 14.0 seconds 11.9-14.2 (test code = 759) INR (BEAKER) (test 1.10 See_Comment [Automat ed message] code = 370) The system Awo[employer] generated this result transmitted ref erence range: [...] 4.0 See_Comment [A utomated message] The system Awo[employer] generated this result transmitted ref erence range: 3.5 - 10 .5 K/L. The refe rence range was not u sed to interpret this result as normal/abnor mal. RBC (test code = 789-8) 2.54 See_Comment L [Au tomated message] The system Awo[employer] generated this result transmitted ref erence range: 3.93 - 5 .22 M/L. The refe rence range was not u sed to interpret this result as normal/abnor mal. MCHC (test code = 786-4) 31.2 See_Comment L [A utomated message] The system Awo[employer] generated this result transmitted ref erence range: [...] L [Aut omated message] 777-3) The system Awo[employer] generated this result transmitted ref erence range: 150 - 45 0 K/CU MM. The referen ce range was not u sed to interpret this result as normal/abnor mal. MPV (test code = 10.7 fL 9.4-12.3 66899-3) nRBC (test code = 413) 0 See_Comment [Aut omated message] The system AwoX generated this result transmitted ref erence range: 0 - 0 /1 00 WBC. The refere nce range was not u sed to interpret this result as normal/abnor mal. Lab Interpretation (test Abnormal code = 14834-7) [facility] (Hemogram only)2021-06-26 04:04:58 Test Item Value Reference Range Interpretation Comments WBC (test code = 6690-2) 4.0 See_Comment [A utomated message] The system AwoX generated this result transmitted ref erence range: 3.5 - 10 .5 K/L. The refe rence range was not u sed to interpret this result as normal/abnor mal. RBC (test code = 789-8) 2.54 See_Comment L [Au tomated message] The system AwoX generated this result transmitted ref erence range: 3.93 - 5 .22 M/L. The refe rence range was not u sed to interpret this result as normal/abnor mal. MCHC (test code = 786-4) 31.2 See_Comment L [A utomated message] The system AwoX generated this result transmitted ref erence range: [...] L [Aut omated message] 777-3) The system Awo[employer] generated this result transmitted ref erence range: 150 - 45 0 K/CU MM. The referen ce range was not u sed to interpret this result as normal/abnor mal. MPV (test code = 10.7 fL 9.4-12.3 01772-4) nRBC (test code = 413) 0 See_Comment [Aut omated message] The system Awo[employer] generated this result transmitted ref erence range: 0 - 0 /1 00 WBC. The refere nce range was not u sed to interpret this result as normal/abnor mal. Lab Interpretation (test Abnormal code = 00079-1) [facility] (HEMOGRAM ONLY)2021-06-26 04:04:58 Test Item Value Reference [...] WBC 0-0 (test code = 413) POC-Glucose [id number] 21:57:30 Test Item Value Reference Range Interpretation Comments POC-Glucose Meter (test 204 mg/dL 70-110 H : TE STED AT [facility] code = 1538) [address] [facility], 770 30: Director Of Enterprise Architecture/Techni kelle ID = [id number] for Rodríguez Cancino Lab Interpretation (test Abnormal code = 02210-8) [facility] HospitalPOCT-GLUCOSE [id number] 21:57:30 Test Item Value Reference Range Interpretation Comments POC-GLUCOSE METER 204 mg/dL 70-110 H : TESTED A T [facility] 6720 (BEAKER) (test code = [facility], 1538) 86351: Director Of Enterprise Architecture/Techni kelle ID = [id number] for Ad alana, Rodríguez Type and screen, automated ([facility])2021-06-25 19:44:00 Test Item Value Reference Range Interpretation Comments ABO/RH AUTOMATED (BEAKER) (test O POSITIVE code = 2260) Ab Scrn (test code = 890-4) NEGATIVE [facility] HospitalType and screen, automated ([facility])2021-06-25 19:44:00 Test Item Value Reference Range Interpretation Comments ABO/RH AUTOMATED (BEAKER) (test O POSITIVE code = 2260) Ab Scrn (test code = 890-4) NEGATIVE [facility] HospitalType and screen, automated ([facility])2021-06-25 19:44:00 Test Item Value Reference Range Interpretation Comments ABO/RH AUTOMATED (BEAKER) (test O POSITIVE code = 2260) Ab Scrn (test code = 890-4) NEGATIVE [facility] HospitalType and screen, automated ([facility]2021-06-25 19:44:00 Test Item Value Reference Range Interpretation Comments ABO/RH AUTOMATED (BEAKER) (test O POSITIVE code = 2260) Ab Scrn (test code = 890-4) NEGATIVE [facility] HospitalType and screen, automated ([facility])2021-06-25 19:44:00 Test Item Value Reference Range Interpretation Comments ABO/RH AUTOMATED (BEAKER) (test O POSITIVE code = 2260) Ab Scrn (test code = 890-4) NEGATIVE [facility] HospitalType and screen, automated ([facility])2021-06-25 19:44:00 Test Item Value Reference Range Interpretation Comments ABO/RH AUTOMATED (BEAKER) (test O POSITIVE code = 2260) Ab Scrn (test code = 890-4) NEGATIVE [facility] HospitalType and screen, automated ([facility])2021-06-25 19:44:00 Test Item Value Reference Range Interpretation Comments ABO/RH AUTOMATED (BEAKER) (test O POSITIVE code = 2260) Ab Scrn (test code = 890-4) NEGATIVE [facility] HospitalType and screen, automated ([facility])2021-06-25 19:44:00 Test Item Value Reference Range Interpretation Comments ABO/RH AUTOMATED (BEAKER) (test O POSITIVE code = 2260) Ab Scrn (test code = 890-4) NEGATIVE [facility] HospitalType and screen, automated ([facility])2021-06-25 19:44:00 Test Item Value Reference Range Interpretation Comments ABO/RH AUTOMATED (BEAKER) (test O POSITIVE code = 2260) Ab Scrn (test code = 890-4) NEGATIVE [facility] HospitalType and screen, automated ([facility])2021-06-25 19:44:00 Test Item Value Reference Range Interpretation Comments ABO/RH AUTOMATED (BEAKER) (test O POSITIVE code = 2260) Ab Scrn (test code = 890-4) NEGATIVE [facility] HospitalType and screen, automated ([facility])2021-06-25 19:44:00 Test Item Value Reference Range Interpretation Comments ABO/RH AUTOMATED (BEAKER) (test O POSITIVE code = 2260) Ab Scrn (test code = 890-4) NEGATIVE [facility] HospitalType and screen, automated ([facility])2021-06-25 19:44:00 Test Item Value Reference Range Interpretation Comments ABO/RH AUTOMATED (BEAKER) (test O POSITIVE code = 2260) Ab Scrn (test code = 890-4) NEGATIVE [facility] HospitalPOCT-GLUCOSE [id number] 11:31:12 Test Item Value Reference Range Interpretation Comments POC-GLUCOSE METER 130 mg/dL 70-110 H : TESTED A T [facility] 6720 (BEAKER) (test code = [facility] [place] [place], 1538) [address]: Director Of Enterprise Architecture/Techni kelle ID = [id number] for PH EN-[place] (V), INES RAD, CHEST, 1 VIEW, NON [id number] 09:04:00Reason for exam:->post-opShould this be performed at the bedside?->Yes [facility] 1955 Sex: FFINAL REPORT Chest AP portable Comparison exam: 06/24/2021 History provided: Postopevaluation Heart size magnified by projection. Lungs grossly free of acute disease and vascularity normal. Signed: Wero Alvarez Verified Date/Time: 06/25/2021 09:04:07 Reading Location: [facility] Diagnostic Imaging Reading Room - [address] BASIC METABOLIC [id number] 03:58:40 Test Item Value Reference Range Interpretation [...] S NOT APPLICABLE FOR DIALYSIS PATIEN TS. Director Of Enterprise Architecture ID - [id number] 03:40:57 Test Item Value Reference Range Interpretation Comments PARTIAL THROMBOPLASTIN TIME 46.7 seconds 22.5-36.0 H (BEAKER) (test code = 760) PROTHROMBIN TIME/[id number] 03:39:54 Test Item Value Reference Range Interpretation Comments PROTIME (BEAKER) 13.6 seconds 11.9-14.2 (test code = 759) INR (BEAKER) (test 1.05 See_Comment [Automat ed message] code = 370) The system AwoX generated this result transmitted ref erence range: <=5.90. The reference range was not used to int erpret this result as normal/abnormal . RECOMMENDED COUMADIN/WARFARIN INR THERAPY RANGESSTANDARD DOSE: 2.0 - 3.0 Includes: PROPHYLAXIS for venous thrombosis, systemic embolization; TREATMENT for venous thrombosis and/or pulmonary embolus.HIGH RISK: Target INR is 2.5-3.5 for patients with mechanical heart valves.[id number] 03:34:10 Test Item Value Reference Range Interpretation Comments PHOSPHORUS (BEAKER) (test code = 3.8 mg/dL 2.3-4.7 604) Director Of Enterprise Architecture ID - [id number] 03:34:09 Test Item Value Reference Range Interpretation Comments MAGNESIUM (BEAKER) (test code = 2.3 mg/dL 1.6-2.6 627) Director Of Enterprise Architecture ID - BSCBC (HEMOGRAM ONLY)2021-06-25 03:11:29 Test [...] WBC 0-0 (test code = 413) POCT-GLUCOSE [id number] 22:14:10 Test Item Value Reference Range Interpretation Comments POC-GLUCOSE METER 185 mg/dL 70-110 H : TESTED A T [facility] 6720 (BEAKER) (test code = [facility] [place], 1538) [address]: Director Of Enterprise Architecture/Techni kelle ID = [id number] for En Sheryl cordero RAD, ABDOMEN/KUB, 1 VIEW [id number] 19:49:00Reason for exam:->concern for ileusShould this be performed at the bedside?->Yes [facility] : 1955 Sex: FFINAL REPORT Abdomen dated 06/24/2021 Comment:Abdomen was examined in the supine and erect position. There is paucity of air in the small and large bowel. No mass, pathological calcification, or free air is present. Impression: Nonspecific gas pattern. Signed: Andrew Palmer MDReport Verified Date/Time: 06/24/2021 19:49:12 CT, CTA CORONARY, W/ YOEL [id number] 16:36:00 [facility] 1955 Sex: FAddendum BeginsREPORT STATUS:A Impression: Mildly nodular appearance of the liver margins. Please correlate with underlying liver function tests to exclude chronic liver disease. No abnormally enhancing lesions in the liver parenchyma.Low-density lesion in the right lobe of the thyroid gland. Recommend dedicated thyroid ultrasound for further evaluation outpatient setting.Other findings as mentioned in the compensation vice president report.No additional significant nonvascular findings identified. Signed: Lise Andrade MDReport Verified Date/Time: 06/24/2021 16:36:13 Reading Location: [address] Radiology Reading RoomAddendum EndsFINAL REPORT CT coronary angiography, 15-Jun-21 INDICATION: This is a 65 -year old female with diagnosis of high CAD risk presents for assessment. TECHNIQUE: Spiral acquisition before and during intravenous contrast administration using a Siemens multidetector CT scanner. Multi-planar 3-D volume-rendering reconstruction was performed using an independent workstation interactively by the interpreting physician as well as the 3-D specialist for optimal visualisation of the coronary anatomy. Consecutive thin slices (< 1mm) were obtained. Please refer to [facility] regarding the medication administered for this examination. This exam was performed according to our departmental dose-optimisation programme, which includes automated exposure control, adjustment of the mA and/or kV according to patient size and/or use of iterative reconstruction technique. Dose modulation, iterative reconstruction, and/or weight based adjustment [...] and intramural hematoma. The arch vessel branching pattern is normal. Minimal nonobstructive calcification is seen at [...] is present. There is normal atrio-ventricular and ventriculo- arterial concordance, and systemic and pulmonary venous return. No pericardial effusion is identified. Calcium score and high-resolution, ECG synchronized computed tomography of the heart with attention to the coronary arteries was p erformed. Coronary calcification was analyzed using the [employer] system software. These are the results of [...] right coronary artery arises from the right sinusof Valsalva. Eccentric nonobstructive calcification is identified in the left main coronary artery. The proximal mid LAD has severe calcification identified. Patient is post coronary bypass [...] bypass graft is identified, connecting to the distal RCA and is widely patent. Distal runoff to the RCA is identified. Regarding the iqugmiut coronary arteries, diffuse calcification identified the proximal LCx making accurate assessment limited. 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 NON-VASCULAR: A 1.2 cm hypodensity is identified in the right thyroid lobe at image 7. An addendum will be dictated thereafter by Electrical Engineering Designer Radiologist if dedicated thyroid ultrasound scan is required. The chest wall and mediastinumappears unremarkable. Patient is post median sternotomy. No significant adenopathy is identified in the mediastinum. In the lung windows, no endobronchial lesion is seen. Moderate right pleural effusion is identified with associated atelectatic changes present. Trivial pericardial effusion identified in the left base. The pulmonary vascular appears to be somewhat prominent suggesting a degree of cardiac congestion. Correlate with clinical examination. A juxtapleural nodule is identified, at image 24, measures 6 to 7 mm in diameter. Limited images of the upper abdomen reveals no acute abnormalities.It is uncertain if the liver edge could be mildly serrated. An addendum will be dictated thereafter.In the AP orientation, the spleen measures at least 13.3 cm at that is minimally prominent. At image47 no wedge-shaped structure is identified in the mid spleen, and may represent infarction. Trace perihepatic ascites is identified. The IVC and hepatic veins are prominent, as expected. No acute bony pathology is seen. CONCLUSIONS: 1. Quantitative coronary artery calcium Agatston score of at least 1371, in the background history of coronary artery bypass surgery. 2. Normal coronary artery origins. Patient has known coronary artery disease as a result, patient is post coronary artery bypass surgery.The left main coronary artery is widely patent with eccentric calcification present. Significant calcification is seen in the proximal mid LAD. See above for details. The left internal mammary artery bypass graft, the bypass graft to the LCx, and the bypass [...] Size <6 mm High-Risk Patient: Optional CT at12 months Nodule Size 6-8 mm Low-Risk Patient: CT at 3-6 [...] An addendum will be dictated by the Electrical Engineering Designer Radiologist regarding the nonvascular findings. THE REPORT WILL ONLY BE CONSIDERED COMPLETE AFTER THE ADDENDUM HAS BEEN DICTATED. Signed: Dung Fletcher Verified Date/Time: 06/23/2021 08:29:48 POCT-GLUCOSE [id number] 16:19:22 Test Item Value Reference Range Interpretation Comments POC-GLUCOSE METER 108 mg/dL 70-110 : TESTED A T [facility] (BEAKER) (test code = YUDY Vaca [facility], 1538) 21351: Director Of Enterprise Architecture/Techni eklle ID = [id number] for Aditya brewer (contract)[employer] [employer] [id number] 15:29:08 Test Item Value Reference Range Interpretation Comments Case Report (test code Surgical Pathology = 104) Report Case: [id number] Authorizing Provider: Logan Russo MD Collected: 06/18/2021 11:41 AM Ordering Location: [facility] Received: 06/19/2021 03:44 PM PERIOPERATIVE SERVICES Pathologist: Tom Paige MD Specimen: Mass, MITRAL VALVE MASS- for MICROBIOLOGY then pls send to Pathology DIAGNOSIS (test code = [id number] 3220) uZzEwMzNcZnRuYmpcdWMxIH tccnRmMVxlcGljOTYwMVxhb uCmCDXmfOFqH8JcsahpZBim XT7iXJ3smIohkAHjxMMpPDQ vDaHyh4fnl728qZJeg5atHH YLawqenUl1pPxbS00zz1D4A jwkC25xgMDhHOZ8MKHjUYFv aOBlBKRuNWA6GKDnuZUvF0v vUJLkDR7rgqhaTYhsVGznFM PyrAG2HINtaNDpI6OsJPZqW VhhULPjmkg2NyBvUv9gkEZu eTcyMFxwYXJkXHBsYWluXGZ uPzLmOZ7lBKJFBrYlOB6WPJ JBTCBWQUxWRSwgREVCUklER J5HWhSsNS7LXEGNZPAZIjte cGFyIEZJQlJJTiwgQUNVVEU jRC5BNVHGFVKET6KCOONRW3 GEU2IVRJDTCuDwK7RCE5nJK YDLIGaUQz3dlSEyILKSNJPK OKaaZ7POCI2WBFKXOpARRmE IK9FMY2BBMX5YF8HJSUJRIi KJOF0NNK4FNTZARBRORnDWM QRLNdRDB2cQY9zaLLbnLYSj K06RRsNMLBEZX34bL2wPKSG ZMWRUI1LCP0rLQ2cJMRjdQ3 EGIZgSTzDHEmFASUXGEX1QR jWYPI1kVAGiiu25LVR7UdHl p6X7LFJ7EHPuXQTgq8wzMXE mbGFuZzEwMzNcZnRuYmpcdW PeFLRfMcMzu5iij209cHOls 5krHGUxDuN0eQVqICBsoFRv R280JPStMZvwi4kis3MkZVJ ooITwg9W7KZWPvqnonMt5kR jxJ67um5F4YccuG0leXYZfC LLrS1FzDA6oQIQhLtz6AZR2 SIH3UXNgDACeB8RpKI1gCNV lrAAhTBz8c0youYciCBSqXS A9n0tuWWegbqUkFK1ofu4pg Xp0y6fdlnTuOJDrKIIqpTZQ CAByA7YqjWelNa0awXk9lXp iRathXPQ4Gud2VS3kzg49ad g4kXzkCVOrymvcOaN2FIehK BZuatojGRm3UDrlRXMbeQY4 POVnsRNlA3CzZHVkCW0nljl 6IJS7XQyvBUEyKcL2TAAraK ZyVHSehTpjFQdtt549IVU0Z lTqJE1eM7Rgm9F4uP2koKRa UUMuuCRzVjBtEHQspb4gdDU yFSkur1UdVOP8ohM6oMEwyN DsEYPkJcW7ZBxcLA2dei63S NOlPDN8nv1otROxhQkezkKs iSNwLOpgO0IjJOBxl646LZS eZ4RkLNDgt7R8mpQbMaYlCK QinSS0rcT5UFKlOV3fkvhlg 3yaOWpeJPwrSMCckyH0thK5 MDQknDDhY6PjpI6iMCKfUT7 pqdzxj4dtNOG3FVspDAQlNZ N7TfInGXNhh3Olbuz2BwVzz 5AvlUKcMAcqG46wt134FXDm thRxZ2dvaHBdejimpUUnehj mMUdrbxJ6DMOoKWickzwxDC ZhPIgsH6xrDqXeCYUqcKspU Lksn4VhSUHqGYDtYoAinQTk AWUwKbg1FITzfVJbEXQtIvT xO4bmalgtNyCNWIEhb2zlD7 bwqJQDcYGjC0CiUHtjdrEiE DorOIlnHvGoPTTqQB18XXJ5 QSKpad19 CPT Code(s) (test code v9icaIUyJUYdsEV5RwDpCFR = 3357) nn8ajy3SliRXweHTnEDeopP OjbvVrdz68tPV6fP88OX3vK NSyUdK0RWWvrfA8Zxb1IBGr UXKknUUhK028h3eew2nsvqG daIL7tUaxJSVkkcnyYqH1RD ziUWYxjayySEd4SBcbIDBlg QW5YQXgcRIeL1SyWMCaCF6h fnt4WVS4NNppCSBaIfJ9TMK btUCyVQHbjKolGEmss592TF O3TyRiZOWmdqJpaLkgiD5nS fEdYIM4RDJfYDnuEKruCOSR R2asFOZ5 CLINICAL HISTORY (test z1jrbTZhCVAnuBH9AqDcMUO code = 3356) zw2sdx7WsjLIsgCUaAFcjqC BzccYczv96jMB1wW60CK3yX QMdMlP9QJFeyuW6Mgj0OEOi LNHkdVJoS398z5ihz7trlgQ wbLF6rWlsXQKgqrdrTlX7NM pwYDWfznqsYNi5UQwuRAVtx EA5LJRedDBxV9FrZHBpBJ9s ryc5PHY8UKnbHKJiPrY6MXN bvMYyYXCfpLwuEWrld571JE U7CoKsXGYreyBmsOghqI6gL iGgCQPRjrEeZ7XtMIs2dCAg cGFyfQ== SPECIMEN SOURCE (test c9tvtEPxZQFpzWG3XxYcLYB code = 3377) kh2apj5AwrXImcZGvRPawsU JqrdUzkh12gCP6zG75AV7uR GLeUyT8ULZinsD7Flx9IJVg QWOhtKZtH186p1fdr2zbdwQ mnKI8yVicNPAkhqefXqB0MM jlUWCflwjeFRp7KGvqGPUhc QO7CERmfEDjZ2LoWTZvRH8z bzi7FOR7NKxkNHOqBaJ5PBT yfREvXEWcjByqXJsgv913SL T7TdJhIBMwiwWabEjljG0bA nMyMCBNaXRyYWwgdmFsdmVc cGFyfQ== GROSS DESCRIPTION j7ynxOCwRQUzcOEbZxSmDHE (test code = 3366) pTEAtp3rdGXXwxGOlLhTgMx NcZnRuYmpcdWMxXGRlZmYwe 9czt361gFTqj9ytWUZoTqG1 tAMkSOCseVBxG904MGNdRHn yk2xfo4OzNKAgoXBhq2C1YF LQxudvmRo2yDguE58wi4M5O atfM8mhWHXkNWFyQ8KbHS7m HBAvOhj1BFP3OPU4FPKhLDU uU9FwXM9kYIBleUGlQGq8v7 ookQiaSTVoSDE7n6lcLTbbm dXlXY2vaw8jjMf4j1zeazUk LIIaGNLmaWFUJABiP1IhaTh cPl3ucIi0fNonBldzNCJ1Jt r9EF9rxz72nqf5mFygHUWmi nleHsU2GImiLQWfgadaKDo8 MFxtYXJnbDcyMFxtYXJncjc yMFxtYXJndDcyMFxtYXJnYj mnIIidTCVvFKQ5ATnqn808D YI3KJkjt6ncm8avyBPuPgn6 DMUbFqQtUdqbVYjje8Sbz3r rYAMxer1bTXD0mJBbaFgcy0 R2uOJvMHUhqRSvlqOtPMMlT kT6AIuoJO2lbg75ADMvIUH4 dp3jsPVzmJkezzKfpQScSFe tJ8JsLDFui960IYWxH4BdJC Thd3H2hyKcXsXvDNNnoNF3f dP4JSRrPCw5hHWeqlW1ffXf lCWsE9ixhV81IhHitSTuO3U hpT72DzVclCSoZ8WtqE57Vn EzpZQfI0ApvP32XbZvjIKmP LHdlQOnQf9kkFLjwXLqo3Oc pWXyMFotH46kk130KAQhugD vN7tghJOjvqnytEYxjqisEP qljpD2KRYoOLGuPIefKNBzU GZzMjBcbGFuZzEwMzNcaGlj tRhkBBiyLoVlGFXrABtoU5x cZjBcZnMyMCBBLiAgUmVjZW o2DNCciS6vTb5ftEYjwU7ul MDfUKyqAXO2lTTwPHSoAYSy VCFeMY10I7FbtE6ve6MfJSF fa34lXJ1fPPBvwBXeJAwulu FsdmUgbWFzcyIgaXMgYSAxL jXaZ58urH9czEYpP6TcINC5 IDAuMyBjbSBpbiBkaWFtZXR vxiN4OT3wlBuqsyY1jBBxvH ZaXPyrsSKgHQduJMG4Bb2qw XPdLBJdjbE6g0ArWXlgMIDi h6NszIMfGBKqUbhsDUFlyVS tPKIbrdKxhCbreR0vPfEpWi MyNFxwbGFpblxmMVxmczIwX RscpiplNIVnWXkqF6gbKwSh ELWqnCiwSFblk3KyZIHxSFA eDzYfUMAfUQJyq9hmWU04WM xwbGFpblxmMFxmczIwXGxhb nsgOCAoMWncI9urLqFgENQh oOjaOBwaf2CaJXFeKCOiDkD ccGFyfQ== MICROSCOPIC j6nprMVgITQxxWQ4DvCfNIK DESCRIPTION (test code ii2adx8YgxWItqRWqGTaqyY = 3371) MxelSjcg84gSX6cU80TF8xI HLxOrM2VEYutzD9Glz9DVOb ZOWinREbT340k5opq2klicR hbEJ2kIpaKVWggryrLgA6ZV aiYHAxpzfyDYi4AQrxWLEgf LT8PCCgzFIhB1UtKCEpLY6m ike2PTB6YSfqYDWfHzW1YJT lmWAlOVHzlAepRLvnj284TD B2OwMsYXDqyyWcoMdmyP3dS dBfAGCNYIUal5YfDAChAVTi cn0= SPECIAL STUDIES (test v6favSMdEUVimBW9JhSkKHP code = 3376) um0ier5PomNWxgNSpGCmbkB EbqiQexc00xMO0aA91UZ6xP VDvLmB7TLPkdxN6Wqp8PCCa UNUxmJZjG978NQIdTLWtyJk yhnw2wG97SGYqsL6kcYNlOO cygcQuRGljjeCscnGjHxh0Z VT0yOwrSJArugvpZoH2LZhq SXVqmwkyYLf5XKhmGAEddHA 0VDBulWTdO2GkLQWhTP2ifm w5SRU7ENnoOZCwIdF6MXJgc MYuHMMngGldJBuzd680TRQ5 LzRbJFSeubWmfLnjaM8gPwF cZnMyMlxjZjEgVGhlIGludG ZqnNAeyUX1qG1cWT1dUUOlu AFtM1UdCUNofiQvkULmAIA5 mBJwiXLmJW7uLMhcrDJyw9z gh1JjQ0csfBkksMF4YW8sDB HzIRCdQIgxk6AnaD7gOohbT BZeJ8VwFBRPT2VJIHGhEQJV Lv9JNzVKNdPbJhJWJp4zFQh NUywgQUZCXHBhclxwYXJkXG TqQPCTg042qc7rOKJxbWZfi lBAhLIrqR2xYHfyRUleHMxq pRAjVVfuu4cdZEHlt6k6fVU pNTDnmhCww2ljXGkvgtIaVJ OrtPDiyYMaYEIno14pRVvcz GersMqdVJGce6DwcWryp9Gy ZlRbEXqxq0JqC46ybTTiuZD auZseCOUympBeTYLnq00yj2 ggXXTtJyW0qBWxeVN4tJXth FLbf4EauQirLOIdo3koUCDs iy0czgxuoCVvn2NpmA5xufr yIOhccSZihuIrTGDpk1o8kE NxXZAkMZZqWApnrBx4GNYzf 680ad6ydkL2dPTsFPE9RSpd YWJsZSBhcmUgZXZhbHVhdGV iDYUvcdCjBXJnroKZkO67sv 3klLQ5w5CfSU0rj6SqlAC6V WNobmljYWwgdGVzdGluZyB3 RWDfsWTpJz1jqWKjAKB1ECF mqFjpaqHBhL1oPVTwHWl8QS EkWmKuVleobvMNQJMcJ3JvP MLmlgLogspcZVI7gT7if5o3 CBvzHa9tNLJciuxqd5ldwvA xdEBhi6ZdRMAkjzMpf0JxCM RhunRvySRxLOSrydMhns1rs rBjQCUvDWHhL9TmjzpjhZpm tnE4HGBvSLNalVTazDudLMG rRGt0UJogtiAnu4FrXqBgas JcsOYtwwKjKI8zNLGbnYAix sTvNWH8KRBoHMXRJvIvYTRf y7DxOV1cWDSodVysFWIuuP8 ul8EpWQQgq54hEGAgCXMFGC EgaGFzIGRldGVybWluZWQgd DunnYRtyWEqHMLkAQCxOU7h RKFjbrProMTcs4StyXQtmkT hm6MzfqBaAYImOYL2JpTFnT UlmLQmgOSoczC1d5AhTOHdt eJimEcgzRWsdFBplCApc1Tk wh6xOLDbi6kreMbmBS1ugPS iZSByZWdhcmRlZCBhcyBpbn Gch8PrU2G5iK3lZZudp0JvP m1cOZBlt7BtkhFfQiUXsTxw DZviTp4cKQIvhywzwSOeH8B ydGlmaWVkIHVuZGVyIHRoZS NIqFzbcKBegEEBHFWhjvE1e 1X7ZHafzQFmbzWmPH95RPUa PS9uwQOokOXcc7IbVNz0YDB eX3iNBP23RYofKGAkjEUauA ruiGHcZYEeJUYfmgUgaa5va XqipRCws09oaQW9tTT4QIUu wZ9pJ6CzYNxlYx1kLSLtxzh ucTWroAnxNp0fuOMniV== Gross assessment was [facility] performed at ([facility], code = 2777) Department of Pathology, [address] [place] [address], Technical component [facility] was performed at ([facility], code = 2778) Department of Pathology, [address] [place] [id number], Professional component [facility] was performed at ([facility], code = 2779) Department of Pathology, [address] [place], [place] [id number], [facility] [id number] 15:29:08 Test Item Value Reference Range Interpretation Comments Case Report (test code Surgical Pathology = 104) Report Case: [id number] Authorizing Provider: Logan Russo MD Collected: 06/18/2021 11:41 AM Ordering Location: [facility] Received: 06/19/2021 03:44 PM PERIOPERATIVE SERVICES Pathologist: Tom Paige MD Specimen: Mass, MITRAL VALVE MASS- for MICROBIOLOGY then pls send to Pathology DIAGNOSIS (test code = [id number] 3220) uZzEwMzNcZnRuYmpcdWMxIH tccnRmMVxlcGljOTYwMVxhb mHqZZEaoHFqW8OencehDNuv GG6dPW6msZsurZQgyDXbMRC yQfOhn9ary125hIAdj8mgPY OBuxlayHm1qHcsS39gq8G8K suqH98fzKCnUNA8VZKsAXOx tEIbPJIfXTJ9XFQmtRYfD7e xSUMaHY9sbpkdONhsOBadND IxaEM4PYDtuXEpP7CrGJKeP KfmDQPbpko2DvQiMf6myCKa eTcyMFxwYXJkXHBsYWluXGZ dFqFmUR5dQHJLQeDoJL1QTM JBTCBWQUxWRSwgREVCUklER W6QTwBpVU2RJVZQKOUMZkbe cGFyIEZJQlJJTiwgQUNVVEU cGV6PHSGHGFQBD0NPOMXLR9 WZF1BZDHHHWrHaT3BDR5qGQ SIOVMyFJu7hrIVrRGKDFEDQ UOzoU9MOHE7NVJELIbYXAcB AX1UWM4OYCY1HZ5BGNILJCf XUQK1MQF9UQIPSRORWLkVLX OLTPmBJF7gVR3kgDUyjHNRp X92PDfEPVLNNC43aX0cBTAC YKIXKU0YBK3tCV9kWENtvJ2 XOMTtNHeAWQzRHPDALNS2YI fRTYD1iJZMejj14YMA1JjUr r8K4SRC7AARnLDRii6eyTBQ mbGFuZzEwMzNcZnRuYmpcdW IzSLTpJuXdg8wst562eLHls 1flLGVtQjK8sECtNURpiNLc G295DCWcNEthn2zha9ByRSR siBJwm0V1GPRKzwrzcMn9sL mkZ41bv9S4RprhN6jmPCIsA BYbF6SaVG4nVTRfUwu3ATH6 MEM1JKUsDKCmK0LuTF9gEHN urHEzCPd6o1qwsLeoDIVcAQ H7h5pvJEdwwiVaAO4kkr6le To4w3ryuhRcPIOcHONjeJRI SKFoD7IcsZbkPv6ldJp0sPy kVvzbFNW6Zxi3MP4vja71hk t2xYmfFFDawqsxHwN2GMvlU RBwgtqwUAc3LXloVCTtzOM7 VNEpmEXhO0ZsRREfOA8ykac 1EVG1EUstSYWfSpI1NMMosG AdXCYhsJvmGFbvv613BSI2Q mBqAC6bG7Zzs0Z9iY0bhFWw YAVxuRRqKcMlEVAkva4nbOP tMEfin3OhIVU1dgP8aDHfsH EaCOGzNeA2NZibCH7ywx52E EIcTEA7ni6oyXZdjZyxzpJx hLIpYNcdW3NjBUXmg205GYK lY6UpUGXmb5L3myLfTdMbKF FauXS9gzW3VGSfDB8pbkzsq 7jeYBxjJNzfKTNlmlW2scJ0 EYFcuMVvA6JdmX5xLQVlIQ1 xvnahn2haXDP5CLdeURYuQE B9TaXpKLFsc6Raxbj4MxAdo 6SplLMmVWnxA20yp313KAFx zsDnD9ylcRBmzqjcaDZzgyq iWGhzueS1QXQlFOqvbcboBI UjZZmxT0swKlLrMXZqeRhbJ Mmpp5IxWXEuBPWgYgDkjJYi IYUqZay6HFAlsZYgGJLzEwE nL9tkyfxwAdANJIYlz0ptN8 igrREXoMRdV8OuYUodswWgE CevTIdeTvMaXIToKQ36ZTK7 JTZppa23 CPT Code(s) (test code i0lidVFrFITaeMQ0DqFgLKQ = 3357) pd4joy0GryXCcoQFmSMnqnR EfvsYhqk95aRG4zO45GB9nK LVwRfV8USLxrbJ9Fvo5SEJd HXVxzNQfM697l2msg3nnueL asDM5dKobGJYwcporGmW2YV vjDIRupeqgQOq3ISloPCBco AY0DMBaeXCdZ1HqTECgVG3f xhd7ADL1SOvvBLMzQrB6UMD vpZHkFGOxkQouVMmdy342QQ V3MwSqCUJirbHflJzmkU5xJ kMrJBZ8KRPoKQzgFRrrIGLO V5zkUKS6 CLINICAL HISTORY (test j9cekTCoTOFjqXO9YgVdQBJ code = 3356) ml4htd0ZrhKUstVMwNKdmcU SxyvYcjj74rPW4sT33PD6xE FBtSaQ7GTXfjcK8Cke7FVAh ZAUqjDMnZ404y4dfp7fdxiL svYO1iSjvQQVejhuyWxV0OE zeFXZizvqlHZe8CPflGDDnq BL6OOYpyUZiT7DaZGJdIR8t uto2IFL6HOxlSUQuTwC7NPL prMZfNFHlqNpaWEhkb165IL N7LmViPADcxaNbpWlfeL4zI xCtCXSFceOqD6VgFUw4iRYs cGFyfQ== SPECIMEN SOURCE (test j7dlrLYsLUCyqMM1PpWtBES code = 3377) ma7lez9WdmPRmjDFcHPunqE QddzZwps07xCT0fQ11TY0rD GMoHeZ5ISClrpZ3Kmw5WFPw TIJkqCOvG584p6mwe6arpsO wxNJ6hFtjYXXjjupqCcY7TQ ecRGYosotsZTa4CKezJVBtt LP3VYGviNMiB9UiVBQqVK3s jzl4KZH4TWedSDMbHnU6SCT zwILiBXFbqWsaEXvee646KG R2HwYnECDqorHjmQfqpJ8hT nMyMCBNaXRyYWwgdmFsdmVc cGFyfQ== GROSS DESCRIPTION g8agpSAdVMZtnMSgXzLkTFO (test code = 3366) aZWNpc6huTGAjfIHdHtLsJd NcZnRuYmpcdWMxXGRlZmYwe 9ywl810xANjk9lmVIApShB3 yZZaJYBcsJEbX145HTYmAMk ye4jqt7MbWPFoySCso1T9RU XQadkljRh5uFzfU49nf8U5K iiiI5zqXMJfLDPmN6FxXV3c VOWwBqu9STZ9XJW2KVOcMZI rT4TnSH9pOPApwVDsGZw6y0 yzpShwOLBxNRB4j3cdLOqlu hTgRS4flp3faGr8i1quazWf AUTtFITqrVLFYEVwS2XmiIp uSk5zxIa9yLhdDsxmLOZ1Ib i7YR6hne82zfl0oUcySUChr ratDmU3BQycSYTrydpsNAv2 MFxtYXJnbDcyMFxtYXJncjc yMFxtYXJndDcyMFxtYXJnYj dmXNmfAMHgWGH7NJbcq333E EJ2NJgmj9ipe1czlROsTov3 SPTeXgElOdohFGbfv0Ikk0b hQJBres5pDUU6kFQhqWufk7 A1dBMeSRCdnBXmtsIgABBmQ wV8ZKvtLV6ijo90PSLwAKW7 gj5iyESscDeblsDtfTCrZKi qQ3PbNQAou631HWXxP4RdSP Jak5J1mvFkJqGcTGNnhOK3d uW8ODEcBTq2hRQvsvV7zgXq dVJpL1empX35AcPzuJOjI3R xmP96WvXocMTaH6CokU29Fm CemSXwA1RxkO28WuRydEHcP RMjgTPgRh6clDManMLwe8Vq jDLqVTyxG90sx883YCQddzE bW6rafFPjhyylrOHskyyeYM wcgkJ1UNMtFMEmSDpkDZXvU GZzMjBcbGFuZzEwMzNcaGlj kYyvAMauUbHtMMKrORbxO9b cZjBcZnMyMCBBLiAgUmVjZW w8RHLftY3dTn3vtWLfjO5de XTgSPyaCIV1uVBgUKTfDVDx UYRvPA53I8ZzeB4fi5XmCJS rv45sVS3qWXNwiAPoIZfhpe FsdmUgbWFzcyIgaXMgYSAxL bDwO49nzN4qmUSbT9XtRRZ8 IDAuMyBjbSBpbiBkaWFtZXR brkK4ZO2isOnuheO6oPLziU NkPOamtHAuMHidPQL1Fl2lq GJtLRBqonH7v0PaXUtsUAOx e1OdyVGiGVKrGvaiXKQclOU yITPhpjXzqJmbvE8nWgUrIx MyNFxwbGFpblxmMVxmczIwX LjswmdnQRNwQIxoM5cqCxYa CZKxqOnbIKstr1MwKLVzJCH uVhKvHDFdXLJwg8lmPZ66IF xwbGFpblxmMFxmczIwXGxhb snhCRUxPAziJ4niAlWmWECo lCgxSVwrn8JpJJZxPCKmYdU ccGFyfQ== MICROSCOPIC d0hdyLKtDUVepQH9VjVnPXD DESCRIPTION (test code su7ink2ErqYEnwYAyNZhpgK = 3371) NriuMifn04dGQ3hK35ST9zD SIsWwJ2UZQelrZ3Uxx1MNJw AQArxNDoI031p2gqv8uuwgQ mxPP9fRssYYXiljgmBmD3OM lfYHWcotofOAi1RJrlNORww SM1YMJtjWSoI7VyGTQqVM5n ktw7SIJ1RKzgNDWuYhZ7PST hqOWdLEOtnGdnCInyv513WA U4EiIfFBBsulPpaTnrkN5kZ jWmMAOMEPHji6MmSVZdTWTy cn0= SPECIAL STUDIES (test r2tcpIEvMWGvzFB0IvClIQS code = 3376) ei8lay1OvxIEcoIKaYLjxyX VcguTqlk65vTG4aU63CV3uB MGfFbU9GPWalvG8Whw4QXBf AEBszAZaV695XNTxDCIqgDs rkfu4cV86RYCqaI9jaEHqOF ltctGuWHujrrXelzJfDxk5P WJ4uYmjHBWsqegdZbF0RViy ZVDntdcoGXo8EOitZCBcnPX 9VXOgfSCxV1MaACYoJX7afx k9CMP4KNofJYOrCyD2BWDer HLkTUXahHmrMFmfn863AII7 FoKpSXUuffNdnBrwdS6zFiS cZnMyMlxjZjEgVGhlIGludG UdtWOanMW2dV7bMJ2aPHSpx LCpJ4SvKZBbwbOvjUVeOFV3 lRMraZZhQP9yRUqkuGJkv8z ck2DmJ7kldCxorJG1PH7aFH EvPEExZQzla9QitB6uTbicP KHpD9ZoUKBEX9IIIXMiLJSS Ev6KAyEPRdZeQsESPo2sGIa NUywgQUZCXHBhclxwYXJkXG PxVVQMl491fc7wFCNbbLMwt mIKrAStsH1mDWgeHSpyMBaa kNKwMIemx3rpXVLiy2y9gCN xOGSjkqCqc6abQSrvkhYmMS UoaYWnaBZdIBBhq21tEYyrp OpznHngIDNqq9RscGfzo1Dz NfYvTSklb5MtO27yxBDoaVZ yoIgtQTCvdbOqWGLbs55rm4 poTSSsVnJ7hXFylTP3wUJrs NDmv2VohYnyUESfa1kaUORh bp2fnnxfuHUce4WooG4qofi gQFjeaPBfwhKfNYWvd7j8gP YsRABmOIMqDAftoCc8LRAbp 023vp0eyvW4aBOpJPW9EXja YWJsZSBhcmUgZXZhbHVhdGV jOMNoalXtVJSejkKDfB05ux 9gaAE1x2QaBO2sb7OdgBN1N WNobmljYWwgdGVzdGluZyB3 KCUjnNEeLd9qpFXzJLX2CMC tlJjftzUZcB5eYPKmEIo4KT IrPoPgDtbfpzHUESXqC4RpO NFhotNyxfexHWM8rZ3zx2p3 IAcrZi7jWTQtqcooz9ymbbL hlDSpl4JsZYKoyuDxl0OtYP KdttZfbGSaMGNkdpXhtn5tf kJlLTBxJTXlB4XwfsymeNas beX5JHPtSGXppZPkrWuqICB jBPg1UTyyfrKsy5MeXzVuow MrcMCyzqSaAA7xUEZtmSGsq mRpAIT8BAEjGQHCErKvLAMy y0QzIC0nRBYqkBipXKImxB9 ty8AwLJLav44jBWPrXBLHDY EgaGFzIGRldGVybWluZWQgd JkyqFTrlSOhWCNjUXKwCM4c DFHbciYvpFBul2OlzCZrsqU uw6YcrjJfEHRmSPH7ErTTfZ ZckYHzrZTxujE4q4JsSCUph qSgeYdqkFRxoYUmlEYej2Ww tr9eVAGfz2vbhTpmCR4hzED iZSByZWdhcmRlZCBhcyBpbn Ldj2MqW7B5hH6mXMgwn2YwV x4qIQRqh1IxaiLtDpIRdOuh TGdtEv8wEVFuozurkOKpB0G ydGlmaWVkIHVuZGVyIHRoZS KKdIeefNAieNITFCGrfsS0q 4O7MGshySVttlQaHS38PPPl VQ3ecVYezCKcq4HxJOi2BGL nN5qLQH79DUzkJQHrzDLheK pjlJSyUATwLFEgjgNcbv5wk YmdrEIyb02cnMA5xHI8BJVl xY4tH1SnSZdwSw2vSTCfduu rfGXvcWncVw8dwYViqG== Gross assessment was [facility] performed at ([facility], code = 2777) Department of Pathology, [address] [place], [place] [id number], Technical component [facility] was performed at ([facility], code = 2778) Department of Pathology, [address] [place] [id number], Professional component [facility] was performed at ([facility], code = 2779) Department of Pathology, [address] [place] [address], [id number] 15:29:08 Test Item Value Reference Range Interpretation Comments Case Report (test code Surgical Pathology = 104) Report Case: [id number] Authorizing Provider: Logan Russo MD Collected: 06/18/2021 11:41 AM Ordering Location: [facility] Received: 06/19/2021 03:44 PM PERIOPERATIVE SERVICES Pathologist: Tom Paige MD Specimen: Mass, MITRAL VALVE MASS- for MICROBIOLOGY then pls send to Pathology DIAGNOSIS (test code = [id number]) uZzEwMzNcZnRuYmpcdWMxIH tccnRmMVxlcGljOTYwMVxhb dKcVQNbxQRuY6UpibooKLys KK7lYD1xsEosrLLqqKQoRLF zTyVyr8mlb401bOOat7nbFE TOojctuVb1dWkiB94wt7R4L smdO34gaCEwTSD2IDIbYMKo gNQfXRRfHLN9TPSxcVWoW0b cNFZnTC1sdepeQAgnQWhaNW DowVU9YNBxvLAaP3CvGZApU EqtKFUrgas9VdKoPp0qyHVy eTcyMFxwYXJkXHBsYWluXGZ vIwKuHC5fVPQZInKpMR9XVX JBTCBWQUxWRSwgREVCUklER G7KZlTkTU9MSHHPHPMCGpla cGFyIEZJQlJJTiwgQUNVVEU eTR7LYKZXHALPH5QXCRLIE5 CKJ9OJMPSBUpAoY4NLH3eHJ OHITJjRWm7wcUNoHIRIOQLS NKrvI8ODJE2MMIGSGxVALyU NA9MJT9NALX0GB9VUHAAUWl JUII9BUR8CPNWPWBYUBpITJ EQCAnURJ6xNC1iqLGnlEDPk Y93FPlYJQQCKT54wQ2wEKHS TABGQQ3SZC5dUS2aOVQhbM4 NMXBkDAjYJHbOWNLJVUU9TS bHZFM2rWWZeao96BWK7QoXw c2A2YQA4CAQiVQNuh8hzWTT mbGFuZzEwMzNcZnRuYmpcdW HxKWMyAzAlz2bau286pEEuy 9nqHBSaOfX9bSToYGMmkUIi M581XLNnGHtgl5bmk0FbSLU axLAiz0F3YRVFspntaZn9mP zqW80gi0X7UznnI3lwRMSjT MJyW9OwBW8rGKGoNci2NPD8 JPA0LQViKVEjT3UiGL6kLZA tuOOdXZo0o1auqWmrUNRbEE K8g5lrCHqxxhBhYW1mtb3rb Vf0j7inpaQlJKIiIQRnfAPG JLYvQ3NpoNahZc0hcBj6pDb kYgobMTY1Ttx0FV5ztp60ul u4cRppFLJggrnyPoS8HGfeG KThjeyhFRe8XKkwNFBavGI4 BIWmsLOxL3ZvKEOhYH5csgx 4CII0WVggIKTwAfH8KMIipG AsDDTziBiuEXeft887GIB6B jLhTF9qE8Acv5Y0eC0ysIVs LRQbvJQoEoMmDDVybn9reNM uGSpxl9JxUAQ6tsG2gJOqaS QzYUUuYwO1PPuqHN6rwu76C FGbJJE4yg0wmJPvxMncpfPt uTKuYMdyI0YsBKJcz887KKL fH6HnZWFyh0F7imEjEsKhCB ZxcBE3omM0KNQzQR8noxiuv 0rgTDtlTDsnEQNwrrH4ezU4 HOQjiSFpE2EasO0oAFPdFB0 yqgcdq8haTEG1ZPpnDJJcKU O8RbTuPNQlr2Pbpga7IlPit 0LzqWUbCZttO48pn427NYLe fqEtS7fszCIeywpgxPAgtuf xVLburlA7MKEeNFilsspvBD ZzZUlnJ0udCeJjUWVhwRntA Hmwp5BhUCQxPWMsFoZdhBXg TNNbOmq5PCRetYEgDSUvBqK gK8ydimzuNeOMFVFdq8wfO5 eqeTQSxHZeW8FlAGmyeuXdU YxlFEsiBsNoVNInZQ55GOR9 UYUzbv80 CPT Code(s) (test code c4nmgQEnBTTonKT5BoKaUWM = 3357) la8buf9ApbQSsfXRuPZvgdB OvkuRnmm80cHY2eT76AY7hG CRgUmR6KHZcceY2Zob9NTOy YUUxiONzJ655x7byd2fqjcT avXU2pOtuKRFjoqvvGyD1MS nmRIGoxigaTJa2KRcjWXBny MA5DIApnWPcD2RsMUTvSH9c xln4JVT2ANwpZJAmMgQ7GGR ctNXePRCvrKorYZtha824OI A5PzSrKOWtkeWibFiixJ4wX fAeYWL9TKEyQLwkOGclNJLD G9qlYEE7 CLINICAL HISTORY (test c5tkzSNdQUGfsMQ5BlOwVML code = 3356) gf9hti4PdrWPfeZLrWPzflK DespMrzv61pSG4fJ46NL9cA AOxTzV0XICbtyA8Rnj6KGYx YAVrtWOmO360s8ycw8vpdkU ktWW2wUqyOSLqyjusJzU3MP maZFHmrldpOGd1CDdaXHDdq EB6YTJihSHbE1XcCVKePS5k aeb9MEH6FAhsYVFkLoB8RFB yuPMsUPDezVvxIQwef392HH F9SyWpICBltwTfpLvinJ0tH iLqIJTWbfEhN9ZjLRn8oZFj cGFyfQ== SPECIMEN SOURCE (test t9wwsLBtRQCueHT2BxYeNOP code = 3377) gw2xca0MtwLLbaVMgARgnrF NahkGnua97fOP3oT48QH0fB OUzGiB8BKEbdnF1Kva4GDBp GOSdfXDaG957q4xqq1slmxP vkAR6kThvQJPlepisRmO2TW ngYNZsyuriLOo4NWgnFWXxj HZ3WJSihBLxC8IyOSFqEM0x wut8ZEA7SAtgIXUuPpN9USQ bbYKhPKGdaEeiFOdhb845CM S6DnOuBMUvvzThwTaktX1qQ nMyMCBNaXRyYWwgdmFsdmVc cGFyfQ== GROSS DESCRIPTION j2tkyVIeMWMuwTMnDfGlXSB (test code = 3366) xCLKnc8apPZUhrQOxYpRvAv NcZnRuYmpcdWMxXGRlZmYwe 6tnj356vRIsb1jmBLQzBuH2 vRAvJMZdxTLpB661JVDgOGk rp8qag7OkMNEzmJJmw7F4EP NWixcnoBs2iLfsI37cj6O1B uxkB4ilYQKdSZQiM0GdWA6z GQOwEjq7RCY9JVT5ERMoXSS tR7ZkGV2gWVQuhMSkMYo1t6 vffEgvGSMoOGG5a6lcRYxze nZlAH2pyl6vyOi2g3nyzgFt BXEmXTEbbSQZKIWrW8NylRw dKf1fhHo6jTujZsxsPJO7Oi t8AI1imp71fsn3jOxaLOQud bsnJpD0BYhiYNNusurmWNp6 MFxtYXJnbDcyMFxtYXJncjc yMFxtYXJndDcyMFxtYXJnYj lyBJbkICTmCHE0WHekq854E QN8THpnk2hyh0dknVTmGzj3 QTTxAbBmEmbcEKmau5Ubb0a qWUNfjw5hKGL0tPKhwFgkl2 O7gTYxRISbgOClufBgVTGzU cH8SItvDA7mpy25LMWoSIW8 xc5jnXDhhEzpgcSrmYWnZXu tG6KkMYFmf917YRUyB6TsTN Bfb8C8mxDgOxScKCHchXP1b zU1OLJtJCa9hAIfbrR1tcHp uCEvJ3qnmL14YcWhfDNfB2I rfH37XfHqaFFyH4PjtE64Ha UooYCyK8MxmV80UiPziPAlV ZClxFOcKa1fnWVjqGDhb8Ze sQZvALcpI26bt044BGWphvU eJ1yxbHRnyjbayMBbdoxiAQ pmypG7WLKyKATgMDfyWAVhO GZzMjBcbGFuZzEwMzNcaGlj sFnuUVscFpGpRQFxGSefC7j cZjBcZnMyMCBBLiAgUmVjZW t9LLYxcU9aBv7grVFgiW7ky UEiAWmqVYL0gRDnKQAwTTOa OJCgBS58O1TmhL1zf3YgXEE lj97lFI7bAMXtaNAhQEoxow FsdmUgbWFzcyIgaXMgYSAxL lXlA61odA8onGRlM7DmZIA3 IDAuMyBjbSBpbiBkaWFtZXR swsZ9TZ9piCkxplQ2kWIqfA JuELcbcQYuQHprMKY0Ym2fu OZkGALrnaK1o5QgWPaoNWMp s3HqmMYoWAThZsgnEDLphDF dAMVgxzEwcZduxJ2mAwRsFt MyNFxwbGFpblxmMVxmczIwX PstumhiSTOtNEpnL7lsRhGs RILqgRmaRCsvk9TbEOHqGZY lKjKyVYFrSXTcy5pqZZ48HW xwbGFpblxmMFxmczIwXGxhb gbvGZQiHHyiN3dsRiEwKSKt eJjrXIxub3LlNFXxNBJtSoM ccGFyfQ== MICROSCOPIC s3mohUDtIUGilRE7PkAfGCR DESCRIPTION (test code eg1nmg5UmvXPbvUZeYFhmdV = 3371) XbnqTjzt88kBP8sF08LP8xO NAuVnQ9RCJparX2Lvj3IYAt NIMcuAHbQ909m7wha9hnhxD nhNK6xHkwCQOredbgZqE2SX zmUHFoybywMGi1TQhtPTBfm VT8SZFevWCyZ2AtJKFwQQ4i nfz6XOP2BGtuXNCbVtW1LAG zzOLgVZXvkYdwXQmzf458YU X1RzJpNEXsjiXddYiqoI6sF uSjTRGEMWKvq9HpOECaWFGr cn0= SPECIAL STUDIES (test m7gpnWJlWJDilCK3VfXfQPS code = 3376) oz8hck1DrxYHpoVRiBZuczP WkwqQqox41bVR6tM03DK3kL WOrGeD2AICojmY1Van6NQLg ALTykFWjN496SFZsCUXgrJo avop1wF96ISStyP5mzYKwCJ tjqqZkJPomjpUabkXyPog4B XZ7uAwbQCYgfostCcZ6XXgb DAGyykojAXq1AAzyIRViwXZ 4HWRdzEWiY1QcLSZwQW9zcv w6JLB7BHeiVEHdKdD4AEZro WCfHZYhbDwbYMjhn829VQJ2 LeErTWTllvPdzPmwpW1kQfF cZnMyMlxjZjEgVGhlIGludG WksBOrdWT6fP7rMV0cNZAqi PWzG0JlQSMrsxZpwIRgNRO0 xYRfaEDiIU1eFDtewHRby8l cd6XhM8finTcpoAQ3YU1lPR FaFBReBLeqy0JuqR5oHgyzK CVbT0YeKQJMB5DFTRKuHHNU Tx7UFiBZAzNvDrFAXh3rEMy NUywgQUZCXHBhclxwYXJkXG JaSHZOm657em3yUJGgfHJxe vHIwTJfuI2lPRdtFDhmJSly xIAbKNowa5ftKAMwx8f1lWU jHCUibbObh8vzDTorfvGlCV ZriFNrzUUzBMZwv00xVPrvs AcylZpmJNEjd3YncNdcb1Ne VrWgSDzub5LfK80rhSYzdIG wvBgpHZVtjkHaLHUwb73ok7 hrOAMeTdB2fSRcrGP7mVElk ZQsy8MivFtpLDFfx8tlNHZb on1oqhegySJun5QqiI0swnl dNVfyyDEnzoFdNDYde7k6eY CvRDAiQZYbAJgttEf2FRIny 742tw5hqzA4sXTkTCE6PDht YWJsZSBhcmUgZXZhbHVhdGV kDUTgmoWhLJAmvdBKsI28vn 5dbGI6m4KdZK0qq7CpzLI4F WNobmljYWwgdGVzdGluZyB3 PQDdpMJuIi5seDCqERC6VTI msUkrniZLtZ0aZLOzSTz7QW MbMqEwMbudziNIMOCwC5VgD STmddEuhwzvLEI8dJ2nt6l0 JSguSt0sWFBdscwzd1wkwuT mrOVlt8EdKRWldlBgf5YiBZ UyyrSolCEuLYKnouRhne1lg fHkPWUxBBHpF1GcrhnvyIau hxH2KTLpIWZpkXVgqNozUQJ pVXx0WIjkxnOms0OmCnIjhi YejXTndzQlYI7pUBJgnPTmh eGyMNX9DACbFMKPTnMwOQJk d8GgES9mUCInzOerPXRwyA7 qh7DwCWPba24jOZEdQXKKOT EgaGFzIGRldGVybWluZWQgd QyhbQCwuITrORZdBMUoUP6r JHDkpiDytBJfe8XycHYjacY cy2XqygVuBZJnVDU0BkWQnT DrbHXqjCEfioF0j0YqVAMcq tNyiLeufUDliWQixBOoy5Ch wq8lSKHex5jwzAdcRV3rzYN iZSByZWdhcmRlZCBhcyBpbn Hdj3LlI0L7lA7pXSbig9HwT n6lYEBxg3RefyYhCiKOeHag OIqhUf9xFTBiwynngPMsM1R ydGlmaWVkIHVuZGVyIHRoZS CUcYozeXCcvHIXBFFiwfG2v 6L7RCryyZYoqiDqNT84SRVq RS4bvGLsoVTvm2BlCZy6BNH wP8qKJE63PAfvZCTsmZKrwH cvlQMsTSGkONHnddYilj9ch EfkeXTrp09ctXK3tOT6MYMa bX8jE4QeMLgeWl3iIJDiegd ryOYhyNhaTo0zqIGtaJ== Gross assessment was [facility] performed at ([facility], code = 2777) Department of Pathology, [address] [place], [place] [id number], Technical component [facility] was performed at ([facility], code = 2778) Department of Pathology, [address] [place] [address], Professional component [facility] was performed at ([facility], code = 2779) Department of Pathology, [address] [place] [address], [facility] [id number] 15:29:08 Test Item Value Reference Range Interpretation Comments Case Report (test code Surgical Pathology = 104) Report Case: [id number] Authorizing Provider: Logan Russo MD Collected: 06/18/2021 11:41 AM Ordering Location: [facility] Received: 06/19/2021 03:44 PM PERIOPERATIVE SERVICES Pathologist: Tom Paige MD Specimen: Mass, MITRAL VALVE MASS- for MICROBIOLOGY then pls send to Pathology DIAGNOSIS (test code = [id number] 3220) uZzEwMzNcZnRuYmpcdWMxIH tccnRmMVxlcGljOTYwMVxhb qRyEIVedOChY5DcebwpWGhd ES0jRF2gjXoijOQkxLQzCMC bFqJbf3aea534gLRvb9uvGY LAjcscgSj2tJnhI87zq3Q9X ybdS40ekXQtFAY7WECpQWBq wWXsOGAtRRS1ZICtxGDhT7r zERRiFU5vgetbKIzuDKytHY LziFT4ZWVleMOkP6YxNJHwB ElbFOFzdzj3ZtJpKw6wuJJp eTcyMFxwYXJkXHBsYWluXGZ jSxRbQC3gLVLIKsYmFZ7BVO JBTCBWQUxWRSwgREVCUklER M4JFoHwTY6PQYUAOISRYweq cGFyIEZJQlJJTiwgQUNVVEU zZJ3TCTOCDSXTF4AVWUZAR3 WKW4FVXDJDAjDgD9JSD0lRP NKWJOeCAc3mqLVhYQFAUTPO SDqtI9XJLR3HUDFKJiKSPxO RK3SVH5WACA2ZA5LXGGLJMp FFUD8YPT5ZSDGEGHTBVlIUW FCXVtCAJ2hOF4hrIRtiZNWp U82APfDKIVXKB41eH0bNZUK EGPDRD6JDV0wCM6tLXOhuU3 ZWUFmADbTPAmKWMBGRFM3LR fXPOI2aJMAumn09GLO9VbJy u4P1FTU4YQOdSKCyh1zuKND mbGFuZzEwMzNcZnRuYmpcdW PvDUAbZjEql8eet414nCRbz 4ndUQJhAeM7jSQgVWSnkSTg G739OJHyNBjnr4iwf4YzNUB mcALwu4E6VHIJfalloOn7qA efF51fq3V3CpstU1tkICIoE OAiB4OyUG1iLPBiPob8ZWJ6 DIC1HXKcTCAkZ7JzBJ7mBUQ ecOVmYPd0u7qouTkhBPXsDN L4c6doJHsfbuAlWD1jsv1hj Io2a3aqjrGkDDWjHDItiMLL LJRdN9OamTpsTi1avOd2bJs aLmndVQO8Wan0DH0qoh15mm m8uVshODQfyleoGyF0MQxtO FDtpfdxGXy0CSddYIPqyYM6 WWXxbKWkZ4SmCLNjNY5dooc 7QPQ2CZnsOAQvRcK4THDlaZ KqNLSlkKisBHdqy720CCP1G eUuST3eZ4Ery6V7kT9weVZf EQFzuHVxKgBtIWSouy6dsVN oOYpoi0FsDIG1asB2iVNjfM YyDITtDuF8RVeoJP5bej89M QZxWCY9gq1mbRIgjVtpurWj sSRpJRumK8LnHMJjm113MHM kX7EnOONyx3I8ldOqMvEmLN OqyAH9miF9YGQtGI5renoaw 2neNJafMAqiDVKkftR8kdG8 AQVcnTAzA5EwqP9pVGYsXD9 ejfups1ftNPB5UCcxIOJjUI W5UuZcFGVhh2Coyge3QzCye 8AswCWbRDwqW43tf239WLTj zoVnY1yzfVNmzbkpoVZyyeu qIJndcwM0PKJdISvnibywCC QxWFgmU8qdFtOjVNBihNkyJ Purd4YbKXLdYUTgOoHwwZAj XVUeNnm1KMQjhPErEVEaGfO iS1cvjoomPnULJCUnf0agF9 megVZSxETbC2ZdNMzlsoFaG NwaHJlnVkBiVVQpJA35CWO9 ZKFppm04 CPT Code(s) (test code x4jbrQPyDGGtrZQ3QhOyWTW = 3357) kq0vuk5SeoUBljBKhUKdkeZ VbxxQzdw62gRT1rO97ZJ0oT DDeXiM7VDHbgaQ4Eii7SKIu OTVgtXEsE498u5hpm8gcngM myIN3cXsmAORgzxtgPlL8SA gsQDAayirkUTg2DJtgQVGzz TY7GULzcKIqJ4KcDXYdBI1z ovn7FYU0IHxhUVVmUvM5WDR cbKSgZSUnnEvpGBdbd192ZK V4IpQdKYOkndSzaAottY8rE fXwCCB4GEGvZHduMQhoQHDY I5aoPOE6 CLINICAL HISTORY (test e3kohJAnEMUdrNK8HiVpRRZ code = 3356) bj1blo2WhzBLahQWsCWxdoX LmylAsri08xHD8sF94OP5dH RTdGxM2RVApyyC5Cwl7RLLc JDTajMMsD543j0ugh5oozhL nyME4qEvxPSSxffnnHaF0DD hlKOCdvhwnBXj5QXgkJYLqi FV1SVDvuKJyU8DxCLOzMG6h cdz8KKT1SMdwEPXvDsL6IPK lwMIpJTYinOyfZXfqd279CS R3OgAdOIIoilQadFmthT8qZ iAqAWKCuaDvI9DaDWo3cTIv cGFyfQ== SPECIMEN SOURCE (test v4tzyJDfEJYtyYT0WcZrOTM code = 3377) cy8lgm0UgmKEiiHLqXMrbqV JpurGinl23pRI1sC46VC6xW TYlNxW5CEPourQ0Qsn2LFFl IYBorBVhT957g4iki9cqxlY tpZI2gLhgCOHxwzfeAsG3WY auCCFjbdlzZBu2DHhgJDBub IF3MRHvmTDpQ6LhGTHcLL5j zwb1GSA9IRbhOAGlLjN2YHG dlOSiGQXzfNudXPevd249VW O0DcZnWGPxufBlaFwqlE5zC nMyMCBNaXRyYWwgdmFsdmVc cGFyfQ== GROSS DESCRIPTION r6kitMVwVWDsgBPqHoTwECS (test code = 3366) bVOOwo1rfTMHcrKUmWgTjLq NcZnRuYmpcdWMxXGRlZmYwe 9ixp058jOVyl2cbICYmOyQ1 nZNuREVgzINeP045NAYoQGz or0idv0SaTGEkwBMex4Y0CM DQddbewCj8tZopR95du0E3G tlyY3uqGCLvBUPlY5PdIM5v QGWpGes8HPL3ZDH4LKSsXWD jO5QzTC2jPUKekRQgFEb1v7 jbrNujURKzHQO8w9qsJZjzj pZkFV5mnl4jiKy0j6txjxYi VZOiSNJxlCPXPOWoJ2NikNw rYj5khZv6fCckZotcVCK7Zk c0JX9jeo42uxx8uEfqWLNwm oylWhH3DKbvONAlduooCNm6 MFxtYXJnbDcyMFxtYXJncjc yMFxtYXJndDcyMFxtYXJnYj xkLBqgLRFkKAC5ELmod087X UG2YCkkw9ett8dziLQeQrz1 DGJjXyMwNldxFJljm5Hly5w wMFYupi5xASB3bYMhsMzji1 G9hWOqQZTyrEYpstQiWTKtH kU3JFgyUL5xed54DIToTXL5 nj3waWOesYjmegAtvFPgQOz vW4GjGBVbc324QMZhQ0AhWA Gdl4K2huXtGwPoYJEspXO1b jX5CNWrNIi5vKMklbG3aqPz kLSdM1puuV28CrFbuOWlT6L svS42OePydZEwH5YgaE53Xw EozRXfN4IkkB50YlEhdAFsY HNefSRbFn0whOPkaZCrg2Jo xLWdKPdwE83er666KAAppdJ nL5xpwJEnqfvnrPRifialAF wlqnF6VIVfHJHiBMwmTLSbD GZzMjBcbGFuZzEwMzNcaGlj jTcwJHxeDvPuXGAbXFghD2l cZjBcZnMyMCBBLiAgUmVjZW s2PDCcqA7iEf7iyFYgpS4ij YPtTDsnBTF6yXBvJMQbAAWh BVByJO82V4QypN0dr6YzHQW as03lZW2oGALxsPBoTSdxkc FsdmUgbWFzcyIgaXMgYSAxL pIwX03bmH3sjPKlV9KaFLS7 IDAuMyBjbSBpbiBkaWFtZXR zkyL5MV3edBzbvgD1rGBumM VvCGdrhCOpFKwrEGH9Id8bq ODjXZFvilN6h9SkPXwgRGJt m9BglOKoRUUyDorwZQWzyDK iEZOsvgMtjWewfC1tCmBrWb MyNFxwbGFpblxmMVxmczIwX LdohikxDOLgBMtgN3qtSdTw JLNktPocOLbit2CpKTKaQRX tEeYqZYZpGEAzo9hnHL48RE xwbGFpblxmMFxmczIwXGxhb cekUQZvRKfhO5exQmMgYHLu gDcnXOabi3SlYBJaFLKrDfS ccGFyfQ== MICROSCOPIC e3pgiSImFJZicSA6BtZlHQH DESCRIPTION (test code gx0vuv2QjfGPurHThGOipaW = 3371) MsxeIjxw87dMQ0xX94LP4bO HQuHqN2COUqfvZ3Mbj3EJLt TIVpoJAkX565q3nbh3pvbfY gmJK2aCqhXVKddeyoXpR7BE fcOVHbanhtMRx6XRnoXBDpd HS6ZPWblQVrW0GgPAVuHP3g wsn9KNO0KWpcVCZxHhD1GKA jrZMkPJNewRtbZSsmp702ZV J5DaLoBRIrcgPlhKlgrF1rB sGkNALNSONlo7PxWXAcOQBb cn0= SPECIAL STUDIES (test p3gmoCLuIFUomNX1OpRwYET code = 3376) na5xos8XjsUFdnEPcAYtxfG ZpwoRwoa96rBK8wZ77VV2kR MEqBaA3DEPgxlE6Ijq2FNOf TCCwoSJaC157FOMeCMSkdKf nskd8wA30NIWkzC5mfVWrXJ cpukQiIMvliiUwutRpNmb5M HY8nIicGWJhctcxSlH5PIqt DGLgiuxhXFi7ETaoQXBxfIV 1YIWtbGUkY7YzCCCrZD1ilk x8CQB4YEqkLPYiEsH8FOFtb ADhEHReqNsgDKlcv017XBG6 AmKqALVqrrYxqAciaM6mSmC cZnMyMlxjZjEgVGhlIGludG XirDVhiLH7gD8aPN4tMTOnq DTuM5HpQYWvvjOcsYDyWFQ1 xHFizDFbWA1uCVxrvFEhj4u la9AcK7aviEzvsBJ6XY1sAN UeBUBrOUgtk3NdyU6fRdqbK UEuA4RbRQSTN3MJLDNsPGOM Wh2RPpKPGmLiWjUAAx9xMGr NUywgQUZCXHBhclxwYXJkXG FuTXLLk579sy2oKEQlxFUyj bOQuGYmgA6vNBkmMXgqSIvx jDGwJDxgk0rgGYUfo4y0eGT aPLBxguHbn2gyCGbnefChTN TstGNunBWkZMYtg62sAJdvl VijsXnvZOSou1ZcsDimq7Cq CdJqNItzo5LdM35iaBGqaAA lbHukHLIspmUqXPXui59gf2 pyFADwUpW3oMHfiUB8gIYva TQtk0HmjXmeNHCvb9hmQGVl nb8pctxpxONum5CutU8rizi wWRgqkPRcoaBoKDLwo9x7xE WpMYJxCUBdOWpnoMp7BIFvy 294kj4htkN1jDVpYXD3AVzx YWJsZSBhcmUgZXZhbHVhdGV nJQIigcHiJXEwtbDUfL11gx 9iwAP9m4ZpNJ6cc0VfrTI4E WNobmljYWwgdGVzdGluZyB3 YDIcyAAtKe8uqXVnYNZ6WSA xgSmwmvTKzB9dOSUfMPw7HN ArPkWzUhmwgbKLSBGkJ6CiT XRsbzRistwsIHR2hB0bv9n8 RCglKx1hTHQpthjyf3jutlY qcZDru7CbWBUstnEvt8QyNW HejnFlvZXsJNBzsvBpop6ks aFoKNEiJEKdI8HfwciovMkr ziV1QGQbZBUlnLSueSvnYRM uTXu6UTxjqmCaz9SrXyXsko XiwTTvhrXvLN5wGZKkvINav nLhOQX9MXJsADDXKlZyAWIf u7BvVG5tTHUflBxgGSJnjR3 im3KbIQVlp94kXACaRGDMLY EgaGFzIGRldGVybWluZWQgd PtqjHVqwWZkLENpWORgWA0l QXAcanHklZAnb9QdeINqquG xt4CuedYeCLJzBDZ8RuTMwG QkpNXjeXKqofY9c4YyWJImt zTuiTpgsCKfpJVtmDAol8Yp hi8xKSOby0meqSeuHJ1clEZ iZSByZWdhcmRlZCBhcyBpbn Ytm7UrZ2L8tP2hNHrgi7JtP y5mCTYrk7GhvcMbKmLSqWsw IOevRt2eYSOrxndmuULoC9L ydGlmaWVkIHVuZGVyIHRoZS JAlVhibZKwkKCRWHVbsuZ1u 1K4BWgmyRAvmjSqWC31YZOc JO2ngAZssZXsh2XqAHt4IQF wB6yIIW14QYnbYVEosZAitN ranUTyIYSrCTLiqsNbxo7tg RczqNPjh55wpNZ6mZM3BOVt lG5wP6JeRGkuPw5oHOAkfux zbCQrkFjfEz6ldAQdzJ== Gross assessment was [facility] performed at ([facility], code = 2777) Department of Pathology, [address] [place] [address], Technical component [facility] was performed at ([facility], code = 2778) Department of Pathology, [address] [place] [address], Professional component [facility] was performed at ([facility], code = 2779) Department of Pathology, [address] [place] [address], [facility] [id number] 15:29:08 Test Item Value Reference Range Interpretation Comments Case Report (test code Surgical Pathology = 104) Report Case: [id number] Authorizing Provider: Logan Russo MD Collected: 06/18/2021 11:41 AM Ordering Location: [facility] Received: 06/19/2021 03:44 PM PERIOPERATIVE SERVICES Pathologist: Tom Paige MD Specimen: Mass, MITRAL VALVE MASS- for MICROBIOLOGY then pls send to Pathology DIAGNOSIS (test code = [id number] 3220) uZzEwMzNcZnRuYmpcdWMxIH tccnRmMVxlcGljOTYwMVxhb bUmUENmzMIuT3GrvkecOAap TX3pPO6ciGskeXCrmUNuUBH eXgAus8rit792jSAhj7suKV WAthgnwVw5rUpyV93be7R1Y mhnJ66znCCcNDW4NXSmTGVc sUGwSRSzLMD5EDGmzFVnB7h eUKKgUT7bhobeHZfyQMebRE MbhBY4ZWMwcVCcS9TiFYNnX XdfNHIigjl1GmLmIp9gkPCo eTcyMFxwYXJkXHBsYWluXGZ uEoXrZW4bWNOZHqEoTT3AVY JBTCBWQUxWRSwgREVCUklER H0IJqUdPM3TZREBKYQPRlfn cGFyIEZJQlJJTiwgQUNVVEU pHB1CJJBAGBFWL6AJEBCNW9 DSP4HFRFJVKxSkI4SMY8fAQ DXWCKfYQj7yuELdLISVDQOF WUibY7WXOG3YAPTSWrVZNoM DZ4PHQ9TTLL3IS7XKGCXUNv UXVV4QQW8RNSJCIECPNbRFH BPGGlZMK5yLW8uyALfcVFUy W62QDyMJRUUEW33zG1kOZCH JPDRZP9NCQ9vYG1jEWJffF1 CJWQpMJkCGQbQAWZRWXM6JV yMCSM4kBIWcdh82UAW6ZbEn a1N6CZB8IQQoYQRyk0veEOH mbGFuZzEwMzNcZnRuYmpcdW WbNWVqVvDjs8fbd666vLRdb 5fhXQMfFrI7tMJsRHWpdEKv D055DQHhBYicw7fze6SnHZP ctUOug2A5DGSNpcnymWg9fG sjQ53ja3D7AmbqK2chKWQmI XDnG6NpYO0oUVQzAfu9NCO2 UOZ7YWDoCWFgD7NvTS6kUOV yyBJyRFi7p5qayFonNHOaDA X2h4xsESexsuCrWW1rfz5ob Ug2v6deleGvJARsVFHmiMVJ PORdX6PcdFvmSs0drRx6tEl bOduhKEO4Rqm3ZE3lrp97ad r0oMjcWCNttyelHiM4YRpsU XHwhebiDId1UMfsSEHpxGI3 RZDevADpF1VlHNQnCU7obin 2UMN0MRdbALDtKoF3EDIxxB TjRGDkzPoaNJjcs078XVK2B nTgAR4oA5Jpz1W6pA9xqAAb GWViwMRiPfDbLBOrkd3rlKU xERwax1VwXJP9hmN8vAYbgX XiBANlDkB8DQfmXV2ver07O FNkLMN8ls9isCNtpUonwkOa fHNgCDmxT5NvPQXnl510HUO dD3DeZRTya6C4ufReMsHzYZ QjbNR0evI7YILpLX7xtqeqe 8bqHQgpCIbkQLShtuM7zdD8 YTBniFYaS9HszA0sZHSaBY5 ugyzow9gtSHB3DHmfYRYySU I4KrRnPFQek4Blzrs6DfFjl 2SvpPIzBQhrM05yw499NFUy ygOqV6dkrSOvfcxmmAChpjn zSLoulsJ0XNIkJDdkymidYX DvPMfgC6vrFlYzOXNelJhdW Bqpz5ZsWEIkGCYrMiUnaKNy QRNoVnj7HAXvvZHdSFKbIdY pH9qvxatnPgDPTCZpw5xgV0 gdmFDQmCNtD8VhXVcbckRwX EmjPCcxSxCyAURlBU68HKJ0 UAQhnj40 CPT Code(s) (test code n9cylOTlBNClkGP3CrXhPXS = 3357) sf3bbb9WnxVOmrLMmVJgamY ColwPsby46uTH4pD19DU8vW BObDpN1BAIdkeL4Jxd9BNZl IQQbuYJmD221j7kjt1lujiW chVR3uJlhKVVfucxdRoL1RA adDZTgjiugICh9SQksABIpb NF9EKXsoTSoD6DzLOAhGH6g yqj5ULV7GPepZQSdPrJ2LHZ uzPDwVIKqhPzeOEspt110CX Y6IkTmWKMjwvVcyAzceR4mJ nTdVGT9TVZtKQmbTRtpTGDW A2asDHG0 CLINICAL HISTORY (test c9jhrNWxHIGtkJD8VgWdSYS code = 3356) yb7inn2PqiFNanXEjKWgqnU GywhOsxo28pYI8yI05DW6kK TKwEtV5XWBytaR3Tkz2UUCn FKQelPHoL662p2pcz4zedyX mjXR3sNxfYTDrhcthZgE5PF xtZLLloppjEPc0CAtwRWJfe AC9UGXwlZExO7DpIGTjKN8k bxj0UNM4HAeaDASjTkP8LJN jqLEfYCZwvLrlYAart608NJ A9ZsQlPUJhhhPoiDercK2kV oVwFCLHodHxT8CkELu5qDGi cGFyfQ== SPECIMEN SOURCE (test b9igqRYjTCYbiZB5HlGjHBP code = 3377) ai9bvm9RvsICfhPUkVJskbH QtmkMdqq91kFR9dG93WA7cQ PSbFdQ6HWGxdjP6Eyg6RYHz NLQamXGmM917r1azj5rkqsZ kwPB1bGjhPYGgqocgJcP2AG izGWJuamqkMYp0ICmlLEZwa XG3KAEbpWUtM9EaEQTyZQ6i yby4ANI6HMwvUKYeHqT7WPK lmGPwRZUhzHvwOLmbh736AU Z2WmAjPIDndrOcwIihjZ8cV nMyMCBNaXRyYWwgdmFsdmVc cGFyfQ== GROSS DESCRIPTION k5kyjAJhIWHxqDKvVlZaCBG (test code = 3366) xAZAfg6cqNZBgwGRzQzKiTy NcZnRuYmpcdWMxXGRlZmYwe 4pku333dTDae5boRCLbDtQ6 rJXdYDDruEZrV318RVOnQBj py5pow6GqYKNvdKVzy4O6MD VLzcgmfJz2iIbtJ90dw3O4Y awpO7xeQLPxRCToK5ToLC6k GSXsTnf9QDP9CTQ1XVLbBBI iP1KjHW0qQNMgdXUdSXt2z3 aqmHaiSQLtTFN1o5lkTYwdi xWpFT6vzw6fmJr2j2qpvgDm ATExSISyhTZTWROmM2IpxJq zZm8vdQf4xOmyFjpsNIX7Hm y3FL6rps11xfu5gBpoWPHnf rioHlN1WUgdEDNqyiduYGj4 MFxtYXJnbDcyMFxtYXJncjc yMFxtYXJndDcyMFxtYXJnYj uqILlrXZIbFDR6GJqnr790C OP1TOuuy6zpl2wxuIMcRew4 CBZaDhAwHyxxSDtzb3Win0n bBCTilz0hEQS7kKIzuRopz3 B2sCUhVUNpiNTlkcRwCSIaD mR3ASqlXC1aiz57LZWtGNL5 zs7cnEYhwDuwlrNeeWXdFMd rW8XkJSJmd575KTSeM5LxCB Gqs4J9zoRdRrRcGZKkdGJ4z lT9GRRvIRa1iNKheqX5mrFi gKRmK2jwtM16GaNawFElC5L vkE74XnYotEHrZ5SttY52Tv IawXMtC4JkjT12VcYhtHAmL CNffGXuKf2maQRbuPJim4Zw hYXgIFdoD53jp148WKUqxhE dU7flcAIdmozomXLcrwsnTO tjqsH4XRGtXEQiOGdfVVKsC GZzMjBcbGFuZzEwMzNcaGlj jTxgQByjIaEjMXNfHTlaS4g cZjBcZnMyMCBBLiAgUmVjZW v6NIIllF2iEm5jpMWwbG2ug VIxLNniTYD9lXYuEHFoHXWv LBMrQE79B6YraB6lh6WlPYD hv01zGH5iOCAppCIxXVorry FsdmUgbWFzcyIgaXMgYSAxL rAeT58gpP7zfRDfR2FtNAB6 IDAuMyBjbSBpbiBkaWFtZXR kaiQ2EU6jrZgpqmW6dUBxbS UaSCmymKNfQLhoPYK0Hg7pu TWjKTGnnmY3o0EiAImmXBTg b0IlfVAhEDVoHvogWFCyvXJ lMNIhgdZugCflsF7cMoEuGz MyNFxwbGFpblxmMVxmczIwX RvoiagbIRMhBElzW5kyLdVj NLUyaGurGHqlk8FqPZSnDFL hGkMmRYGuLRJib3unSR69ZP xwbGFpblxmMFxmczIwXGxhb cxwWKBjTCqhN7hsJfRzTJVu jMlcPZkva5YvJTSnSUErJnO ccGFyfQ== MICROSCOPIC t3zdzIPtJDGxxEQ7NaUmUMJ DESCRIPTION (test code ce6twl1GlmVKgpULiQYoryT = 3371) QkolOipt64rBJ3wN12AH5zF SAtIkH1CGPbwvU1Eya8YPMj PXQkaGNfX191r3dlb5qekbK haYR8gBnxMHElanfcOuD8IQ oeIWDruxdfSTu9FXxmIIWjd DT4WXQjrMXiT7FkSSJtPL3c toh8KJO7FIztGNJeCcM4UGZ tvOZfZUUukLviXDnlf837PY D3BvPiTMZkujGsgYppcW3pO eLzGMRIDBFoy3VaGBFdIFWh cn0= SPECIAL STUDIES (test m1utdNIzEBKdnXA6LoNoPUN code = 3376) og3wnk5MkiVMvnUKwSIvldP HunyRrot10aBX4cJ56HW1rN BNtGmO2TWQtygF8Kgd1WHPt VRMtgYOzG971YHGkWKDcbWr cbgd8iQ82EUPmuO1jgBXqJH xpiiSgQDbohgRyykGvNdt8J NE1oCrkSOLcqilnVxV4BXgl DBGhutrnOPg4BCgbYIRxfLR 8SPFdyESxG3AbGQHyKW4vxn o3GGI8XSaaPFBdSxX0NGLgb IJpFODbnGlpVGfsv422EHP5 KmKdPRMcvmJqyZlclZ1tLhR cZnMyMlxjZjEgVGhlIGludG QyqXDhgWL4pL2gYU6bDNMut IScL0DlRAQjfuDoqVCeMSG9 pXRorTVrMX7hQYmepIKnh7t ap4KhK3jktSljmFM3DN1vIA LlCULbSIgvl6YzkW6kLvoxD ZGwH0BkWUQZG6AYFXQvNFZK Eq1RZxZXMnEtBgRULs5zMYy NUywgQUZCXHBhclxwYXJkXG MeEDSRq730pb8iLSCgiGZyf pKWeXWnrC8fKEfvTGsyQSfp xYMyOYzsx6oqCPBng9v1jLH hASInynZvl3wjIQogypDgGU CfoRYnhBPsXRZmc68hUEzcv HkesVtwKELqm1NglYagi7Vc DhOyUFqgd0HbV92gnJJhfNO piVgsJZQcelNmRPMaa14wx7 qqZSCwEbZ5oUFzkEG4uSMby GWzi3IqxRblGWJqx7dhQEHe hk1yxnedeGNhs0EwkP6cieo qJGtkcETxheOoERRir0e1vB DrHAIkBCGtCXysiFf8FIFga 348xi4nmmA0yJLaPAG9LQqc YWJsZSBhcmUgZXZhbHVhdGV oFSZjxgGsSSQjcqROlF76mn 7dcBH0v5NnUO9nq7DldOY3P WNobmljYWwgdGVzdGluZyB3 UQNpqUCiAl6zcDKfTQI1KXH hbCovkhGEpY6qXYYrKYt5YK JnRmKhSicuwvFWGWMcR5WzZ NKcdkPtrijaNCP5cP6sn2r6 YQorZk3bPCJhxenqz4okanT deJRbx0EtYKVslcUmv3JhDE PbuuQnyKPxFNQxrpNinl0qo uBbDIHkFGCvN3ImgplnfCsk umO7FYNtXHDdbAXzbWmcIRD dDOj3ILwdogUwv5YiPvTvpn GmiQHgysIlIK1tZWJtlXQpr uLcFZG0XGVpJUFQAuWzRJMk b8PmVC6xLLYcgLkmAKOtpO1 vh4CcYYDgq03jVIJgFRFTNH EgaGFzIGRldGVybWluZWQgd UgifUVirDBaAOOlGSFaNB8f DPZgvgOlcFFsu1SpiZPlqmU zu9RkerLkJQGuHCX5HnLWbZ OgkXWhvNYhoeD3j6CeAHOna bUxuBsswKAafTSqdQNoh4Er kj3uZOCgn7soaVszHV2qdYX iZSByZWdhcmRlZCBhcyBpbn Cjm0PeH5A6iP1wTXlmg2FeE v2oYDJld1PnsyPhNyOFeGwu BPmiOa6oPACyntltiQJcZ4O ydGlmaWVkIHVuZGVyIHRoZS EQrPgviEEhwRGWNCTjopX4w 4J4OSgmyNChxoTnJD45GOXn CJ5yoODzjOIna0GgHDr1RKI eA1xTRZ83GLqxWBWjzVBvcZ mriOYfSCBvRBWmgxQqpo0qz BrsyVDlp02xtUQ1xMK7MKBy aM9aM7EvFEwiWc6hGSUyncg fdTFzhFduTf5icFUibJ== Gross assessment was [facility] performed at ([facility], code = 2777) Department of Pathology, [address] [place] [address], Technical component [facility] was performed at ([facility], code = 2778) Department of Pathology, [address] [place] [address], Professional component [facility] was performed at ([facility], code = 2779) Department of Pathology, [address] [place] [address], [facility] [id number] 15:29:08 Test Item Value Reference Range Interpretation Comments Case Report (test code Surgical Pathology = 104) Report Case: [id number] Authorizing Provider: Logan Russo MD Collected: 06/18/2021 11:41 AM Ordering Location: [facility] Received: 06/19/2021 03:44 PM PERIOPERATIVE SERVICES Pathologist: Tom Piage MD Specimen: Mass, MITRAL VALVE MASS- for MICROBIOLOGY then pls send to Pathology DIAGNOSIS (test code = a4opeLNeEZBds4peMDEirTB 3220) uZzEwMzNcZnRuYmpcdWMxIH tccnRmMVxlcGljOTYwMVxhb jMyREWaiICaP8YdoksiJRsz XB3kWG4wwRkqeZMkuHUfPDX uZgGfy1jwy497nFMdk4xcRP TSdtxppFv1mPfoO24hm9K5S ajyW87clAXiHYB6IQJtKCIs hGOvYNZjNEI0SQCleHRnY6y dHRNwIU0aqnplVUqxOZahFA BnmXW8MSVgbBTfG6AmGNGhC PpwITNyjyl7PpUzBl5gmOQp eTcyMFxwYXJkXHBsYWluXGZ pUaWuEJ8aVSFSCaEhAV9JHJ JBTCBWQUxWRSwgREVCUklER S3GYsBsXG3CZCLQZECCEvel cGFyIEZJQlJJTiwgQUNVVEU uYF3TRNVKXHVZJ7KUBVJMI0 EHG2ZAKBAJDjQsG8UYO6iLZ VMXYAgSJe2kvIXiRXRTHJME BAzaE8HDAB9DFMVUQvWIDgV WX1XTE9AMUA5WZ8UGSPZWPm WYVV6IFQ1YWAKALMITMbZDN YHKHlEYI9dRS1tmRZkcUHLo P15WJiUAKXTDH26mE9mSEWK RXMSEP7VTT2vNC6pTCGcaG3 RANNhBIoLTNqKXIGUEAH5FT xFWGU3uFIJino17RES8BfFg n6Q9PRN0UZJuIOTvc5bjOGV mbGFuZzEwMzNcZnRuYmpcdW FbPRJlNaXbp6ydq556mYKww 8unWLNyKsN3pRIbAAWfzZJi S778DZKpHWukj5tyf3DkHJN zqFUql6L1IORVbkmmdMq9qG nwZ93sg9G1RfzwA0grUFHiC BNiC6MeHY6sTQIbPcz5RPX2 KBK1CJTrNFMaK6CeTC6mESH kiDEaHFr7f0dmkPbkUKTgMV C0p1dbUHancgMfYN3oam5os Eg4l7ikllBiJYKqQSCixBXZ ASPnF1JdvGezOo1syFs1kKz eGewnHGY5Zep7SN9moy94cx k1wBnfXZIwnaciOwQ2CDleV XFryuadTPh2ILkaRUPhxSM8 OXAycDQgK0YbBOOcIE8itas 2MWC1DBpyVCAdLdQ6QLVriP MyZAZqpAapPEesl379EIH8V zShYJ8sN7Kdo5J9xL1xfMUq KHEgkIYuOaYwNHHswz0wwCT vWNnos9PxAUB0wyE4mSFdvM CgHMNfOkM2EDqwOT0blp13R MOoMAR8qi8tcPGonZsgxwWc iFUqBHybC7JdHIZqe587QBI yP5GwAORbm8S4lvSxIoZpJT OrsKG9jnC1PXZsBW0tmtcmx 9woLIanNUxsSREoktC1dcE2 FQXkuHFpC1WufL6tLBZlHY3 bqkjqc5lzTBK6XGlaRRTnTM F4XyMhKPAwh2Nzqpa0SfLpr 7UetXRmQEzoH38ua681KYYh coLoN8bifXRdmlwfoUVjmzr rJPvcpdS2ZYWiPFeexwoeEC IuIIeqZ9jmFtRcDXRqvQscV Mxis0TeGEIsNGPpWvVvpYGz XFNmTkl3WQIddFApSVUzGgV oY1pvmqunZlSADROfl9kqD3 lrkUPEyCPbR0VyMJotugIbO HjbAFycByGoCAOsVP04YOH5 MCPfbc63 CPT Code(s) (test code w0cdoPUyQOXmtFS5YzLkRKR = 3357) ji4vsd5BbgFFalGAmOAwreI GotiCnrn89sSY1gE50XR4pN BTrVzU0MGEkxxB8Isn9MATh YPUbpUIiC442y7wdi4khbgD akSQ8vQebUQOwjotdWeW7GF wcSHBhiviuUUy6FXviRVWgx GI2RMScsAMgP5ZkOWTjBW5n wly1UMC9TKbkBMZaNlD9WOG oaSHbTCXzhGniXYcqx233AH I0UsTxKJAecgFkkUtgwU1dC uAqOCZ8HWDnXTstUXewZWJH H4pcCXJ3 CLINICAL HISTORY (test v5keuIItFBLhfEZ9FbYpCOT code = 3356) cv8mtw3GazDWrvSLwXEyrnB RjloNjsd78xRN5gI86DN4rW GDsIaV4OLSjtrP7Mbh8ORAo JSMtgMFdL161v3anw3xmzkP rtTG0aVwtSVAbyddoXhZ0PV bkMPHopsvwQUk9ROulFLAsl ZU4SNNtkPMeW3GaBYQfKW5b wbe7YCP9KHrdSNAyUsS8SSV jmXWqQCFxvTwuJPyiq710RM B7SjOdAQKlfmTpwAxbgW5hZ zLoYSSLfkDjQ4UvZWl9kOAz cGFyfQ== SPECIMEN SOURCE (test f6oshEEqUHJykGO2LdIuALI code = 3377) ez3wip1DzpORqnXZqXCphpY OwliMaxz00jRS8rY69MV1uA UOqIwM2YEHtdiS5Rvy0XCFl SYXdeXWeH388i2wwn3mnhiI ynIC6vKwuVXLtulvsKmN1EJ xcCSTqkhyiBAk0HRumAFHze TQ3JUCgiIHdI4IyFUApXI5r uuz1SVZ0BQafUKPxUmC0CIP gdCLkEOQjrRrwAHzyy803XZ N6EhXsMGJnzlFawLimoQ5fF nMyMCBNaXRyYWwgdmFsdmVc cGFyfQ== GROSS DESCRIPTION x2lolMPtBEMhoDStPnLjRSG (test code = 3366) uAFPxi2nsBVYhgWZwStUlCf NcZnRuYmpcdWMxXGRlZmYwe 7vuj094wDOqe0wfQPAhVqC6 kOKoXPHegOKiE241ODPjMTf ig2gor2VrBEKlqAHnp6K1VQ KIzkubzHj4kEzbZ20ta2P2F auoW1ntCZReCRWfO9YlDQ3g IIOnLaa9LZE9SIH3PLOmTHT sT8SoZP1tCYJljLUgVIf9w6 epcArfEZUmSFN2b6kjHOtim qAzEL0vls6nfNs7b0bbbzDc SRTiAVXcqMWMDBGsS1StrIy qIr1rlSb6cEdfBnfeJHE5Lg d2YN6vju45fep9vFrrIADpb jrsJsR7ENfvVTIiwlxuDTo3 MFxtYXJnbDcyMFxtYXJncjc yMFxtYXJndDcyMFxtYXJnYj tzQSihRYTjKVY5WFdrx227X ED4ABbwq3dts4wjzSScPni5 WMMdVtDuXwadSTuob1Mfs4q iTGJrin1wTYK3vCDkjKiwq4 O3eBOtNWIvwUKgidHkZNVvX aG4REtgKF7dyv03RVKiPJD5 so0xyQTxeZwzozWyoHTnXTt yX4KoXXBdx046JJWdO0UsQA Gwv3L6vgLeIpZiCQFlqCV7z pI8EAKdIAx0lYAuvwN1idOo aFSpY3bfxQ61UfZkpRJcF6F kpM77VqVpaBWyI5TjbT12Oe McwLEaQ6KqgK72EfKzuELkH DRyuFYrHg0otMIndSRpr8Ye hQEfIRtzG41jm197ERZkjcF jV9dxjTDksppxgFAlwptyUJ gfknW7TJJhOWGnZTxjAXYqW GZzMjBcbGFuZzEwMzNcaGlj rPunHGtoFcWzGJSxVMlyZ2o cZjBcZnMyMCBBLiAgUmVjZW e8QZGahU5wJk3ijMVicQ4jr CKhFOaiTDX6kOEsEWGxFJQq ABJyWK65W3HzvY3uj5SqTAA ba58rWM4pNNKfnPLrTDhisr FsdmUgbWFzcyIgaXMgYSAxL sUiZ02zlA7knPKnZ7YeGNN5 IDAuMyBjbSBpbiBkaWFtZXR efsN5FV8lxKraouX0uFItxV VsKUjfvMObNIhfSPO5Ih8id FGbDHTbmrF6x2SaSTknWUGi b7AyoLXuJLHmGoaxUTDyzFE bRDNakyOzpNbeyX8kGgGeBx MyNFxwbGFpblxmMVxmczIwX ApepukcGIBiYMmuI7tdQxTl JKKvwYstRMmzj7KbMLRaCBZ rNtFoENHmDDBli3anOM19SR xwbGFpblxmMFxmczIwXGxhb ctdZHPfKGsbD0dyQdDpFFYo kOicUQzhy6ThTQXuVWCvTaC ccGFyfQ== MICROSCOPIC g8azuKFmJEEhoOA4DmIxUYP DESCRIPTION (test code mj4lgq6FmeWYxiGCbXZjoyF = 3371) JhtpLzdg66cWA5qE67CU4dD SFfPkG4GGFrdfW8Jyl7LXKj KTGpfWUpT841t9glv2rgttX wiXZ2pDzsCGXfwqdtSuQ9HF gnZMYtyrwgUJa3OUgqNGBuk LD9NGDkaCXzW3GwKNLfAG9m ogt9NGS5XWsjLDYrBsV6FYG xzTUkDPFqfLptYYhmx510XQ E1AuTiSJFrvmWmxMngcA5lJ rYuZAUYKNJyi4NsSCIvIFBi cn0= SPECIAL STUDIES (test m3iupWLtGYGdoJT2LiDyPLY code = 3376) hd1hkv0GelKKsoJTkRCeqfH QpdqYnpv60zWC2rF86XE3rU UIsBdE2ZSWubxF2Flb1XBLc NGBlcCDoU958QGGpPBNsaZe wlib9pB65KNFpxH6jbUKwBC ushzAjGHquqwUurpZtZov5D CR0nMrnQLAnnlktOnB9NBvm QUVhzfmgGHd0LAcgXEJtuKS 6QEKicLLfY6GwZWFxZZ3vty d2GQN2HGxpYKOxNjK3WSWva OTdKIBhxIozRHxal208ZRP0 NmXsYHWxjwHcrFwjdJ6yPoQ cZnMyMlxjZjEgVGhlIGludG JwdQUrrAD5nF8oLN9sPUGkn AAuT3PhSNWujjOppEBlLQT7 qYPgoMVnQW7sHOlqpIJxm0z sp3RuP0nrjUjolDC0KU5zRR TuLRImZRclj6QokO4nYgspD NToD0FpKHOBA5EYXYTgQPYG Fx6VThRBBySmJwPEUj3cKIp NUywgQUZCXHBhclxwYXJkXG BiEIVRp283dq7rCFSajYRxb rWFuRXrqP4zTKuzDFhgXDal jEIcICrql1dfBUTjc5h2tWM gBWNoqmEdy4sxSSljriDeSL MrnEXxxNDjLHNql45iQAakz NlhmKtwHXOnd2LuwYoii9Wo MmWzCJras4WwQ54wzOBomQQ rhSgrPSOifcUgECRsv91wz2 eiNRLfRpS3rDEiiKV3aKDjb DRab8NkxCmrOYPcj0uaODSu bv2dzotsnRJil2LosY5babc nOGljdISosbCxSNAak2n9zN KtMXWvCVStLDzzhNz7BNSiu 531ra2qsgJ9pIUnBAU4DPeq YWJsZSBhcmUgZXZhbHVhdGV iSAZdpqWvYEKdcgTAeK48il 0exSJ5j0LgPM3oh7MihNN7S WNobmljYWwgdGVzdGluZyB3 IRRpeUPtTn0bhMPfRDR0ANX faLdbgsFXcT6lNAHlAMj8OG UoCxFjGfzbmlELXFTwO7TpK KFkjlXpqkmlUGU7oG4gk6c7 EHfzHr1oDNBrnfvqc0sixlQ ucEIfe1QfFEGxlaDsg6LvAO WbwlYotAYbTITjtyKskt4xd mQzRBXfGJRmS6PwgrliaPqz imN9YEDwCPYvhHPgsGcpYTR xNHm8YOkzlnTzw3PsKxIxdf KgnNPvefYbJB6aDWVesLNyr kEuHAM3QPWpHIOFCtVvZRAh x4SqJD7iKOWjpLrfSOWwbN8 rw5ZoCVPnx21eKQIeFKEYTA EgaGFzIGRldGVybWluZWQgd LkfzDRjqRCkGFJvSQJlRD9u APCepxRemAOyh4HcaFYdnyF gi4FochZcMIJqGMW2DxFGtY BrkSMorTWedwM0x2EcDGXmx nTcrQsxdMQxeJFgqJJhd3Ky ws1rLNTob5csaRepVL8hgPE iZSByZWdhcmRlZCBhcyBpbn Qiv5GcA1E5oQ9uQBylw7UxM o0qBNEqc1RfvqIuKoYDuTwn CJngGw1jZEDtoomlkKHyF7G ydGlmaWVkIHVuZGVyIHRoZS LTaYalsJObxKDAVRNgfqW0k 5R0ERkwpRJzwdAeNO42JPGg RE5zxMXtbGLfw2IyQDb0UFX kD2jWUM92LPisKOLwkWWavI bdeLKoNXFpSZMbagAsfl6zz NazxCMzv24vkBI8gFD5UPVp cS6zZ4DvWWggOb9cNYApqfa fbNUquDzeBx2opXUyeO== Gross assessment was [facility] performed at ([facility], code = 2777) Department of Pathology, [address] [place] [address], Technical component [facility] was performed at ([facility], code = 2778) Department of Pathology, [address] [place] [address], Professional component [facility] was performed at ([facility], code = 2779) Department of Pathology, [address] [place] [address], [place] [address], [facility] [id number] 15:29:08 Test Item Value Reference Range Interpretation Comments Case Report (test code Surgical Pathology = 104) Report Case: [id number] Authorizing Provider: Logan Russo MD Collected: 06/18/2021 11:41 AM Ordering Location: [facility] Received: 06/19/2021 03:44 PM PERIOPERATIVE SERVICES Pathologist: Tom Paige MD Specimen: Mass, MITRAL VALVE MASS- for MICROBIOLOGY then pls send to Pathology DIAGNOSIS (test code = u0pocBJsTBBgk3odSJPbcKZ 3220) uZzEwMzNcZnRuYmpcdWMxIH tccnRmMVxlcGljOTYwMVxhb pNdJTSfrINyC4SxopcsVKdw BF5jJE7raPrhvFShyIJwYIK zSmWfz5lqc976jCQbk3utBY CPfybzhMa6oWmvN64mf5E6B zxgG41sbHHrFIF6XXHsSILg cZHaJZLiLXL7DGPgsANbU8m uFZNcZE4okpaoULoyERwvXL SsnCJ9YMFjjOCxB1KzQGHiI HewFZZefyu8JcOiKw2swRBx eTcyMFxwYXJkXHBsYWluXGZ fKxZgUJ4iVULEPxZpUO6IUN JBTCBWQUxWRSwgREVCUklER S1TWcCfBU5XQBNAQVIOAiux cGFyIEZJQlJJTiwgQUNVVEU xKE7YQWXGFFJFL4ONNQUAD2 ZSV7JYAIIAQfVzF3ULT8eXE PZHPQfUZq6dpTAfHMJLZRMM MGshC0HQFV2XPXQYGcOPVrO NF9NBP7VCRO0KE2YIOPZXHo IEUC5KBF5MNVMGTHTRYdBWW HPRIqLUY0sFY8qlOMgaRPWk E95WZdYYNYIFN32lQ8uKSYP GDZYCT7JEE0jUL9qOJCydH3 EBBXtKCeLKRoDXSCJXNE5MF xJQXA9uPDNjyw46NJM6OzRb u9Z3WXR7MJTpHMKsk0tvRQX mbGFuZzEwMzNcZnRuYmpcdW EgWZLfYmPje5ruu426cQOeo 9kiKKEiUdH0pQChASQphOAz T286USDuAZpbm4sei7NyIUM nlXDmn2C4JJSByrhpbKj3sH rxZ57op4Y2WggnA2hqUTRtK JHcH3RiFT6fKOKyJlt6JTN9 ISU8UKGpGPFbS7VtQB2nUAI egMCeYHy6u2peqQumICOwJH S9g5nmHYlkkqEaXO1gir6cn Ey4z7xmhbPcZHYjTIOdbMXY LASxR1CucLkzTx1rpCj5bQt zZutoTEG6Mnb4VS5gld76fp e9fSieOSGjlucnCgT2QYdbL CWduhsoPUk7LNzxVPLxgYD4 WMKulMBqF6HzJZMnAB4cvmt 6YBK9MXsfYGImUxG3KWSgmW OwRSNeiSthBLzin222SBV6T yErZV3vX0Aib7Y4yW1ieGWk ZCFyyDLbKqNlSUVzpk5apQC hMJfhq9JkUCM8oaK7pVQlhS TdAYUuBfI9TQzqYX4agr99O VOdRNT2oy9lwBYblVlnizOc fTHsIZouP4GwFRKxt202WRK vZ9JkHQTii0P5aiNvUnQiXI VykZD0bhA5NZTwRG4fvcund 0mqVOfnQNdxCVNgnxY6dhW8 ZAUcpWOdK8GovB9gGNSdFQ7 dohllq7vdLVI7IZuzGYZfJD I4LsJiBAXja7Bgunj6UwYlh 3XcpEEuLXmlZ90kd784GTKg kpXwH5wkrNCbjjdldTUrmbn uUVbtpeP4LFQfMPwwfafiQC FlNCbqS1baLkHaALNazHltZ Etle8MjHOZwUQZrMyGwtVJo RPZgDfs2EZQdsAUkARAsHnZ gY5nevjutZoAAXLPpc2zcM9 bzkRXLsFYqM8MaQQpcqlNiT LpjMFnaCgXxVUHjUN10INR1 TXLxfw82 CPT Code(s) (test code g4lafVYmZTVhlNV6XmJhJSJ = 3357) hu5zdb3BjxIYerNRrUOgmrU WpqdArdw08yQH2vU70SO8xP AHmVwT6SJWvdtA1Gyd2HCYh RGArmRNkT409d0hxz6vwwrW yxXG6eTwkERQzailaSbI4VT muUYGgmhzwMKl6ZMyyYFAev MW9PEFrrOAmL2HiYHRrJD2g jir3AEV5EHieJJByKwB4FOO ekOIzDUOyzUfoYGmdw972VQ A9SmKqFSBjqfPnkTgvdJ6cB dKbBRS3DWHwIMkrACigPOLO E0pvGBG1 CLINICAL HISTORY (test a9cmhRIlQPPpnBC7GfGwNGP code = 3356) ml2umd1GmbQHkgPFcDJhfiC TblrZaos94hSN7dE69SY5qX GFeNiG0XOTwqqB9Cyk0WYGt BPTxdHEzS048t4fei1vaaiH qhJR0eRjnESUaveseHlD1UW rsSTSzxlfpLVe0GUpfZTVuv NB1DWMthBQyD0GhTRVyFW5z tlh6AWB9YGhjEPLbNgJ3CKV mrXPsFILamPvjXEatu917NZ P4GzCdNLUtwiVwrRhnmM6aO hUtGYNGayLuR2AlELy4oHSe cGFyfQ== SPECIMEN SOURCE (test y8skfPCyGRRnkLV4OpFkCSY code = 3377) zr4vjy3YzfZLdqBZoHEdlaD NkicTson05jRW6jS42PO7cB YPpLtT5LXPlorD0Fdm3DTCo BLRxrXSrZ127s1mxc3edtoK bmXP5vNjnQWPrzytnVaY9WB ccDRScbozrCFp9AWxzQAOgn UN0NDIpbRPvC7ZoBPCdPU6h erw8QNT9PLxwZBLqYeQ9HJG wiOXqZFYexSvyUEgga928LR B4WqRqDQUsmzPyrXpigC9iY nMyMCBNaXRyYWwgdmFsdmVc cGFyfQ== GROSS DESCRIPTION y8ikqKSgQLMyuTHoVpVxUXG (test code = 3366) lUCTva6rqPTFktNXfZpObGf NcZnRuYmpcdWMxXGRlZmYwe 2agr104vLEvy1rfMKTtRrV7 dLOmHMScsDHxM892YCRvRAw dn4pgx1QuCRXxhHGuy9C4TI CIliaagGh7rDbyB11qb7E0L ypiM3wpVJXbSXXdB6BbVM5y BIPlBnt6DUC3YII4OLEvCFQ pN0LxKF1tVYWctIFbHKu1l8 kdfUehKVTtSGP9b6yaIOoap lSzJW4sdq2ijKw4h9exbpCi QPDbRTEklIWYMLRrA1VudFm xHu7vgXr3vQkbJmhfKSB2Ss t9ZK2xsz62nwg0uQseXEEnl pntIlV6ZEqgHUIcjxaiTUm9 MFxtYXJnbDcyMFxtYXJncjc yMFxtYXJndDcyMFxtYXJnYj uhHHweUNHaVFB9EQnvd903K YG8VQyxx5fsd0sjqKAbWcs7 RHTqNuYxRkezSGeed4Lcg3h uDTZwga3cLHL0fCXoaGwvl5 B1qVIaQVUmxVGlhqJrMAJzD zL0TQpiLD4kjp02MNBbSSV8 km6rtGMuvEayvuEmyESaGIx nS6EnIHEqo438TPDjB7EsEV Qmu2Y4jkLbLuXeITJaxJO4x qQ1SESsHKu0mZSywlZ9dhDo jECrQ7rcrY51QqWjsAAbD0V opK62PeRovTEfQ4JivH81Vh LeeMTrT0XzlD23XtNquRDfT WGxdQRwKx8xeIVvtFDeb3Bx qGQzZIntK57qx271WQApkzW dA0dmkYPpvcpcmKHgvswiEQ ttwjE3EEEuWLFsQQjhHPVgZ GZzMjBcbGFuZzEwMzNcaGlj wIlvIEntAcVfBFAoCKqrH5i cZjBcZnMyMCBBLiAgUmVjZW m3LUOtcO5tXy9ugTTmbC9op GSdUWteCMB4gQThWFQbZFYg OICdVP13E4FyyG1gq2HtJHZ zp48wDZ8eUROngYIlDScegm FsdmUgbWFzcyIgaXMgYSAxL oYqD73fiS3cbMHtS0BbUFI0 IDAuMyBjbSBpbiBkaWFtZXR bfiS5KE2wyGjjmbP4kKGweG DjXNoapFGkLHbqIWU7Ug0rd JIkGVEhvvE6o6FzGYvnYOTr j2QskXRhPOClJkguIZGgbWA dOQDxxwQpzSxjeJ2pUhEeOn MyNFxwbGFpblxmMVxmczIwX QjucsnhDJEqTEydP7umVrFs NUGuxPirOXjug9XbQQWuPCU cRuHgDHOlUISsn7nhEA34LE xwbGFpblxmMFxmczIwXGxhb dudBTXmWHhrV2xpYuVoTLVh hTbiCDlcz2JaXCPzPFTxAqC ccGFyfQ== MICROSCOPIC h8hssRAgDNXcpVW6WfUeKTX DESCRIPTION (test code uj9ctx7DybWExhSNbEQsagA = 3371) UgwuPuxw70pUQ4qQ24OT6oV TMfKdG2HERmlbV9Xub8KIBv OUVwnFPpZ133x2aof7nbggI npYM9xJogWOCvqmepHwY6DQ lxRFKpuwixOXm7LGrjHBDiu ES5CEOcwIDvA1XgMZGvFT7y jgj4AOM1BNmzSGMdNuU4ZDV jqXIjBUApiSllOFwun675XB S2FuGwJFIpiuMcyLcqtN2sX gFoPHEMFQOlk8QeHMLsSEMc cn0= SPECIAL STUDIES (test s4woyRKtDQVajEE5LbSlPGV code = 3376) sb1vvg6IprUXgiGReUZfmcU CdyrLuig18cIT8qY72DW9mM DAlYzB3JVDrioE8Lsk8SWEw EDXosXLcZ814JLCjIGPwmGt wunc5bI35UTDxnD8mkQLaHR ipwbWlAGqeglZlkzKuPdq5Y QS3uCveUPWooedaCuU5RTxs EJXvtvmuOJz8RBxqKWDflAX 7HTMtxVYuX9NbLITcMG4ays s8UFE2HMmcXPQjEeJ0ZPJnb LKyMPNnvTnvJVlap921PEI8 AvUyGQDqriAlzRvajB6pTqA cZnMyMlxjZjEgVGhlIGludG PcgCHnqUC5pT8aEY1uPJOko XFuE5KvMMLuwsJslFAeQAZ5 qOUomQOvBK8pGRoekXJmh2i as6BfE1stbTygpXT1CT9tVI DrNOFjFRpix8GrcS5kMbejK BNoX3EiERXGR4FYXQBzPZSZ Ye7IHyFRCwAkCuDJEo3dDSn NUywgQUZCXHBhclxwYXJkXG LjVIGNr939zf1oTUCfsBSbo yDCvRNufM0jKKukRSkrKHeg dRCwGDgcp6onEPLyi6x1fTE vGRZbwtQkh2jgSFgfhzHmAF HsxEPymPHlLSLap08hTMunf TrhpKpoHHRkq2UofDvxf7Bv BwZySRxom3LyI70mjMDrmTL hzPazEBXodrYrXSGzz00bv7 cpGHQeEhI2bNCpdXH4oVXqh WSgp5CcvXboJMZtu4rfRNZk tr9jjwxvgPKod7MphM4htzt fMZqrkQXewrHzJIIuc8t1yR PtKANxFUXePVmthMd4FMXvg 577mg4dyoF8xGOmBBL2TXjj YWJsZSBhcmUgZXZhbHVhdGV oUJNkitByGUZduiHMzK37uf 5ptRM9i0HiIM5pa6MqzZV0W WNobmljYWwgdGVzdGluZyB3 PPYxqHNxKu9wiUSdVMI4CBV lfMqmraXWqH5cFXVeYSa1VD XwGmWwSxekikZUBICyY1VyD GFdheCatqkfVDC6rO0bo0u3 IWzlPe6bCVQkyqukd8cjugH wyQAwv8YjNCHtuuGtk2OtMK CmniXlnKPvSBNnujWjjh5qh lGaBBHaGLHbW3MrxxhgeNnd hoU7HIAyEKLdqWTmnMkwODN nPKd6SBnprhFsr7ZaNnHent PmkAQtiqPjRA7xBFHnvRUrq gDbXCT8GFPmFJPTUiRpAPFs p9GkQD6dKBWyxUbpOQEsqB0 yv5DfLBBml51cUYSoPUJERN EgaGFzIGRldGVybWluZWQgd NaxiMPkqEZuUSWzOCJmBR3u IQKivfQeuUPxj0YwaYBvhdU sh7DbvlUdOSGmWFV3SyXLqA MpaNHghNPknbP7c6RdBTAnk bThzVpcaMJlvKYpcDWur7Bb sj2yRVDkj7knwBkdCY9eoPC iZSByZWdhcmRlZCBhcyBpbn Gzd0WnV6W4fQ1eHLhmw2HgY l1rPTAwa4PjqwSsAoPUiIel LSwoGn9oIUCgjzuasUKjV4U ydGlmaWVkIHVuZGVyIHRoZS KRxZpydRNfxRRKBRJvczK1u 9W9INwfnNWiafWbUW48GFXw AR2zmWJmvGRdo4DdSAs2JPO aB9dYRL63YOztQPFlxCYcyD uprKIaKAMyWNRihfHobz7vr PcpxJIex16ykYD6yZE6TYJr gB9tX3OpVHupUd5kIMXpsgb fqPFmvVgvVy8bgUOsqI== Gross assessment was [facility] performed at ([facility], code = 2777) Department of Pathology, [address] [place] [address], [place] [address], Technical component [facility]. [employer]'s was performed at ([facility], code = 2778) Department of Pathology, [address] [place] [id number], Professional component [facility]'s was performed at ([facility], code = 2779) Department of Pathology, [address] [place] [id number], [facility] [id number] 15:29:08 Test Item Value Reference Range Interpretation Comments Case Report (test code Surgical Pathology = 104) Report Case: [id number] Authorizing Provider: Logan Russo MD Collected: 06/18/2021 11:41 AM Ordering Location: [facility] Received: 06/19/2021 03:44 PM PERIOPERATIVE SERVICES Pathologist: Tom Paige MD Specimen: Mass, MITRAL VALVE MASS- for MICROBIOLOGY then pls send to Pathology DIAGNOSIS (test code = [id number] 3220) uZzEwMzNcZnRuYmpcdWMxIH tccnRmMVxlcGljOTYwMVxhb bGaAELsdHUfU8PgbjxtMYzb MS6fUV5dsOevzYTypIPxXGF eGmXrb2umz153dAUhk0hdEV FYeeyyqOl2cPwwA71qb7K0V ypyR61jpXXjMEH8KILeYZYd yGXpKGQaSSX9KBLtmPYvY0u sWXGcTX5zgntiYFioDZuhJZ AcqXP0SJQtrBXfP6ToHNGeO VdeOPMbivn9RaAdXg3hsXDl eTcyMFxwYXJkXHBsYWluXGZ lIjIbMV6kNTWAJqYxAK3QSF JBTCBWQUxWRSwgREVCUklER Y5HJaFaZR8RHWTABCXQFirg cGFyIEZJQlJJTiwgQUNVVEU yLK6BSMJELABGU0LYJRMQI2 WZN1DTJRAVSiMoI5KFJ0hZW RKDRAsTRm8twBYrGHTMFKDF VAeqR4OLOZ4PGIZJLjGYItP VL2SBN7YPAW3JV6LANOOVIf TJEJ9JXD1LOGSQEGQQZnTHX GQCEuDMY7rMH5xoBUwuSHBq Y28MNvKDOEORQ24xS1hVUJG YERJKP4AHK9bCX8hVZWauZ6 UFJIfHQnCCRzHUOTOKQH5DA fBXCM9qEBOidw30JPP9WcCp g0B0BKG5VEHzGKAic2cmTAH mbGFuZzEwMzNcZnRuYmpcdW ItCPOmOqEuq2oib688cJKol 6xeZESrLyF4hBQuHEGviFOe K764UTSdMQtbd5udj4JfZVM qgABpn3S5OQMDyesgnTc4wF upA60ij6M3PxmaK4sgRSPuL OBqD1GiSZ5xXPCoIib8WPQ2 XVN1RKScWIKmA5MgVP0uPZF miYDtUMi1w7hkfQwwUZVhKP L9p7nvFFvnfkLrQB7uzk1hg Ti2f7ikazUsIGUbUZDvtAFT IDTnY4AkySnxVw5izRn5rWi zUmhiXVO0Rmr1BY4fco08mc j5zJonBWQehtbpKvW7BAgzQ HUkrizaBTw3XQjoGSYdiIW0 MYWgfYAeB1EqSLKmEN5mwpq 6BFZ8PCrsZKTiXgI4SAFaiK AjGWRgbIacEUmlz316XRL5X hTdXO8fO1Vqx4Q7gG7wgUCf NHPqvEHdEdXwAUWzsk7sgMY aOJucz6KgLTV0beU6iVWooM PvMNAiPhF4CCgmZS1jos54I MYfENC1xz8yjYFogVddncKx eNXyHLarS0AuTMGua818XZS nN6WrYLZqw4O3bgXkRnRnNH ClsLH9nuE4RZNoJI9pyehxz 7wmPNroPSgfJVYxkpJ4oxI5 WYGmiNGcJ2KzbX8eVSAnMI0 xzbtpj2psPNT5WIrpMSRbNP K5SlRsDODhk5Eisnj3DwYst 5PqeMGjHXqkO36nd243XOIi iySmV1paiXOuimowpNWmhkp hDOnandB8OOVjRZldqbhoEK JrHEyyI5sjIxXmNHMeuFngC Igmz2QvKSEeYEDcGgUjoAJr ADZhVit8KQYgkOKqYABdOsB zS9gmrblvEpBZHXZqr3tlJ8 zxzIBFxZHyD6BwDVxmxrUzY CfgOFzaPnGfEOPaLG70MCV7 HZXzdf39 CPT Code(s) (test code f1wnaETuVUFzaRL0OdJtOIB = 3357) lz0qdg0DjdCSioIMzZTzuhX FbjbAxpm01aYF5rM92AL7rY GXcBqE0OIIejmF3Gwn6ASVi PFIeiZRtQ247a6brf0jkmzX fbSE9yYrlUIYkljrgHpM7AF czJPKxmvdgDWl4AIghROUxp SX6YGBrfBVhM0QjCPGcTO9l anb4AED3MVgnFZXtEsL0TLZ esYQiFQIbjSjuTKulo495EJ T4BvWtFDRdbyLnnAghqS3wK zAnARD8FEBqTUqqEEosPDXX R8gxTEH7 CLINICAL HISTORY (test s0yieOSpPVXeyMC6IzQvUNN code = 3356) ql8ypw2KosSLheSObPOechL UckpKadh53gRT2qW10SU4lE IHcFzY3EDIfiuY4Qno4PPXw MDAryIKyF903f4omf3caxyL moDY7jZhjNREcdsrqZjL9CJ noKFUputgeMUk1AAbdGIZqx ZF4FXQhhQVaQ6NeNMSjHV4j dob2ZOL3OJoqMHVxVdL2ZII hgKIfDCCysVcqZKqdo114WY Y8EnYrLSWkaaOfrOhudU1qF wRkZUOErbMkK2ZxPOe8oSPy cGFyfQ== SPECIMEN SOURCE (test t1mywNIqYVUhjNC5XjCzCBK code = 3377) vv8kvp6ItcKAsiOEjLEjzkP AikdWbva82uVF1gN75WS2nK SIiTmG4LXJjznA7Sfa0MPPw DHQofPSiB784i2mvw0tqonO qiMF1gKnfZCTnfyrqAmJ6AO myBCCaawjqEVp5OBjzSNJnx YD4USRzgMFhO0WeUNLnTQ9m fxx3BOP2NKmsQAJnCiT0QSN tqXDfJHHbwZjhGKdvc860FY F4LyIdGFKawmMnqEcuzG7jV nMyMCBNaXRyYWwgdmFsdmVc cGFyfQ== GROSS DESCRIPTION c5nekJYzSBXpyNRkZfCrIWT (test code = 3366) vHAEai7rxEYQutGRiRwDhBg NcZnRuYmpcdWMxXGRlZmYwe 2pbc818sFFrc5gsRIOkNwX4 vOPlATIpwEPjP950IIOtWLt cr8vjc8QrZAPkqHYgu0K4DB UArgodpKw0dAaaP21tl3C5Q tneF0huWCNmVSMoN3XlJA5f JVHlJul9FUV5GKO5PNRxAEH vR7MuAX5yEGCrhRGeQPu2m7 kfkXptVSUtYAW7g2grFDzks eDyUI8kre1xxUa1j1nnbsBw BGEpHWZeiNMJBVJzP4AonRg hTp7xtAq7oXbiQcvkGRD4Ho z2KX1toy92fca8rQddUPGyv bmpQuN8ZFyeEFAggkvfYXv7 MFxtYXJnbDcyMFxtYXJncjc yMFxtYXJndDcyMFxtYXJnYj dnESemYPSdQBK9BNeuv772S ZY4RTfvk9plk7aqiJKbNsc2 FTRgOtQdNcmaEPjee9Gcz9a nOLTpyn4bJAF3jDTtfSfes8 Q2jDAnUWJsfYTyioUtGGJaB gN3BEelCJ3zff73WNZwCZL2 gt4uwLVhfHlqreXtlOTpAHg xN1AvNEDgb857COPqX3CrDH Mlj7N9leNkQdOyFYRqjYW1l sB7PSIkTZb5zWQgbrB5iwKb nLAxU0zyqC82HxHjrOSxX8L mtC44GiGprDCeA4OxhT31Uq IimQOgM3BjqV63UcHmvBQeE THyeVLaQr1jfJWnbKGin8Pv gHGjGOfbG53xl268GIGtbdQ uZ6dguBJiuxqfeBLeadjuVI sankM9QHWiBEKfTUtuVTQkU GZzMjBcbGFuZzEwMzNcaGlj nKipWFbgUfRmQXMkBNjlM0h cZjBcZnMyMCBBLiAgUmVjZW f7RUJaaM1uZx6zcBLgxV9bo BTpMUthCEQ8bAEfBPMrDARq VEJhAU82Z5MoaI9et9YgHGX eh01lYU1oXQIyvSGxIJwhrj FsdmUgbWFzcyIgaXMgYSAxL mEvE56joL4xaJWzL1AbTDF2 IDAuMyBjbSBpbiBkaWFtZXR uqmR1GB0xdSdvywD7gXLmhE AeBXrlgTWlJZiiQTL8Qo9ah SWiEPDfstN9c9OwLDpuCCQv p3AcvLBhZAPfJbtiCYMjhXH yPHKtlgPycYwvzX6dBqEsSs MyNFxwbGFpblxmMVxmczIwX GztissaDKCpZTjgX2foCrSp KTXwmVbyMByaa0WiZWFcUWK xCaJnRUFlRDWxk2ibDZ42YU xwbGFpblxmMFxmczIwXGxhb jwdXATrTQrnB7zrYsNpYXHw aHnaDPyeb4AqJNQnOPLmNeB ccGFyfQ== MICROSCOPIC i4syaTHlYUBbwZP1WcVpJLS DESCRIPTION (test code to6dxv7AtkZRnrGKtFCuulN = 3371) NympJral28dIY4wA87QY3dM SLgAvW5KQYpjwL2Kof6ZFIy YBKqlXCtS494f0hoi9mrjqH lzEM4aDchOHFvgzonXcG1GO ppEEVayndaOZl1KIvmYBVks FM3AYXjnNAyI3GaWNSkSP3y xtw9XCS1PGzuTRKaGuA0DIA vgCLaLOVynXjdAMnsi783OP M3DyUxHXLxomPqoMyupF8nZ pHaLYBEDDBln3CgQUWdRGXb cn0= SPECIAL STUDIES (test b7jhyRFdHRBklXB1DaZtSTP code = 3376) si4kmj7EmyURcvVCvSXeojU QzspLmkk12oXD5aR48XE3rT CFhWpO1JOXtmfO5Cld5LRKg MCCokOKdC691TVYvEOAfnBk koyt9cS38MQUasQ8ssNFdTC kfolDxRNvbebIvqkSvAvi7P MQ5yZnoDSXbfyraAtW8VHty PXCtiagoJAa1FYhhVBWwsVP 3WJEdvMZyL0TlZFHzSR6iby p9JLV2NUlrTWUmJaJ8ETGxt XDcNMUfbPzkIMtng765SED3 BmOgQSYtyyWvhGxrpC1iNsO cZnMyMlxjZjEgVGhlIGludG LrmBEqcTJ3jE1pSW1lIEDxj VSkV0ZzUZPvosThnFHvIDE5 uYWpmLOrPW2oIZzroZEep0s qb0ByC9gekTdlaAP8OB9jRI UmIDNlBZdgx2HcuE8jTxayI QZdA5PrBNEPS5YSEPEcSASC Cp1LJvBTYnIbKgTPGf8yALb NUywgQUZCXHBhclxwYXJkXG EmOOJFy625qb2nCNMpkJZgc tNSmLIqtA1yHHszLEexYPxw kEZtQJona2nuSPQwp2u8fLF fLBXiobBid9dqMMifglXyAX PjbZQgcFQhZZJqt22mURmen SwirUxmOYVbh1DmiMfrp4Ey EmLzKOhla6LeD65kzVLqwWJ njNkqGQFaecVcYWNmb46dq0 nyISUiCzB4hVCpsYY6rLAvr TXvo5VfeVqzSTWmq1xcTMQn uh8dbroguSGjm4TjlH5sqdk hQDznyZWrqvJdWGJuv5y9gL QsIXGeQNCgWVjgyBg9AXIjl 881wf1vjaV6hJAcZGJ1ZRtp YWJsZSBhcmUgZXZhbHVhdGV bAFMxcuQcUJXrcvCSeA92nl 1haVR8b2HzOP1yi3PvzNQ2S WNobmljYWwgdGVzdGluZyB3 DCBsiGQmVk5pgBGoXGC4MDJ tjJvsoxPHiU8xVYRaOKv6VE GrTnPjJqokpiYNVBIgH6LvG VJyyyFstngoMVT8hF3sj7g0 WWxsHe5aYCEjbwzcf8fdwyF loBDyx7SqBFApbbRqv7EiDR LxunAmyENzNEPgjzCyza5ki gMzBGRcGFBpB9CicitzrOvf hcC4LSQmQLQmnXUswWauACP lUSb4WMwjxiKnk4ZhZqWkfw NiuOYijjFmBL3qMUBmnJPsp oObELR6GILjJKTFAqEhTSOo n9DrFH0oRYRkzZzgIKSyzM4 kt3WhGDRdz55wOBFpPMNJNA EgaGFzIGRldGVybWluZWQgd FhzbOOvlHCgSOXsMWShEY9t QOAqgeAkvASgy3VsrZVjwbZ pp5IqfdViTQGvSRF7BkRLgI SrcJDqkWWquuZ4o4CoRDEvx aHdgNdazPItiGXrbJPww8Mz sy0cEBAth6wofCnlAT6uwZP iZSByZWdhcmRlZCBhcyBpbn Zbl7KdS8L9vH9pDAayy0YpA p5gPUEok4CxnqKeKeJClVlx ZBhxPl3hMMYsrahmdCDiU0W ydGlmaWVkIHVuZGVyIHRoZS XIuNjdpBHlqEGWMOKwejP1e 7V5OKqvdXCykjMsZS67UXGt NA1zkFLfcWXzo6RjRTp0JRN cN0eUPZ87DThfPPFduKZlfQ wsiUFkRCFhBSHsadClrv8zc ErvyADan04fqGR0nIP2WQYy cD5eZ0SdAKcxOn1oOPRhlrf bzBBrkSjwEw2ezWYlpN== Gross assessment was [facility]'s performed at ([facility], code = 2777) Department of Pathology, [address] [place] [address], [place] [address], Technical component [facility] was performed at ([facility], code = 2778) Department of Pathology, [address] [place] [address], Professional component [facility] was performed at ([facility], code = 2779) Department of Pathology, [address] [place] [address], [facility] [id number] 15:29:08 Test Item Value Reference Range Interpretation Comments Case Report (test code Surgical Pathology = 104) Report Case: [id number] Authorizing Provider: Logan Russo MD Collected: 06/18/2021 11:41 AM Ordering Location: [facility] Received: 06/19/2021 03:44 PM PERIOPERATIVE SERVICES Pathologist: Tom Paige MD Specimen: Mass, MITRAL VALVE MASS- for MICROBIOLOGY then pls send to Pathology DIAGNOSIS (test code = [id number] 3220) uZzEwMzNcZnRuYmpcdWMxIH tccnRmMVxlcGljOTYwMVxhb rBzESRuyJCoX5HohuziHGjd FH1cBQ9hrYgjjPEsaJDfNBH mUcLsf8lld181mITbs7caBU WNfccccQb1yVqmR41te6U7D spcO84xxOQxTXP4VOLjYRWs zTXgFOVdSDN5SLCdcQWiA2u vEYGtLT6okkeyVYbjMScrFU FhuXG5OTHjrZKrJ5IvRVSbT BnrRPWncwt1YrXcMl2saBCp eTcyMFxwYXJkXHBsYWluXGZ pSeOuUM4fPGWELgVcNI4BSB JBTCBWQUxWRSwgREVCUklER V0ZTvJaMH4VYKUNJWJYQbmh cGFyIEZJQlJJTiwgQUNVVEU fBR5HTQWHDAAGN6AONAYCG7 LLB6YRWZUIYvCdE1SSS5qPM EGTSRwIUz8vmTLvIJNAMHON CSmoK2NGBV0KFAQLUaOMTbF ZJ8EAF6FTLO0WF8IJNWXIPp GLZT0IJV4MVEAGUPZFTuZGW VSIQgOYD7yFJ8ilGUwjULKm J66FPsCKJAQYS04rA1zCFOX BSLYFB2TJX2nJU6mOADugJ5 WXOIoDIsHTJrBIIFUPQJ9TT pWCTV6nHHEehq63BIQ9KsVh c9W2XTN5VJHhZZOhw9cvJUG mbGFuZzEwMzNcZnRuYmpcdW DlXPReIlSir4rvk027wFVgf 6ebLEGhRnS1fJTyONGyoQQi Q851PFKaIVwbg5pcv7SfGKI uxRFsv5R7FYYHscpzpIi6mV ixK33pv9N3CuzvW0evKXViK HZdD2TgZV4lJJEyIhr5GIF9 TTB0XCXpEUYgA3AgNW6aTIY zzQQgPVi0u3xtoWefRMGmAE R0a7uiIKaguhRdIZ5mpw2ug Lz7x2tlcvJwHCVzXCEzzPMQ OIAgM0IoyDmzHp3uuGa4sPy bSsopBZA4Fhv5MO9qsf59bd h0qOvlQZEdlmelEhO5KPxuC FPfoiqpALs8QDzpANOcfML6 WRBjyHDzB5HbFLMaUG5phyw 9XOF7ALlsFCDnXkY4JWRgrY ArKWMunUkdGPywy273DUS7U cWbVN4cF1Rgv6W8jR4nnFLl JIBeeIXqLcQmJTNins3xjUC oXYvtp0AiBKD8tcM6rJYszD IaTHJwCmY2IAieIC5dlk97C DDwEBO6tf7iwAVfqDkevlRf oROoRBfeU1CoXHDsw952XTK iT5BpDVBjm9W0npVzHnQiFQ VrgYJ0ltB5UGKsLQ2njusxh 6puEEonBKpcCMPccnT4knG2 GBUviTNrJ5XlmU0kVHFlRW9 obnaeh7kfOLZ8NQwoFWMqNI G0EbGdBPSps3Uhato2XoXio 3VguTUsOZtxH16gc851EKCc ssKtE6yzhFDmhopeqFZivst sXDlaeaL8QPKtBPkhxeuqAG EiTUwnI8dzJvQlCZBttGewF Jeos2CfDXOcVUWyExUliUJi SUDiVkt3LHTqmTIvGRGlYcT oD6sydcmaMvCPPZTao4ngI7 eovBCYhFQzN3JnDLfkmjYzG GifDQqkJaSwBYHtTM65AXN1 GZGevz47 CPT Code(s) (test code k0ovcJQqJWOncDT3UqDrWOG = 3357) ki3ymz8YzqDQdwPZfTQukqB CegaUmle59yJN6wU45QE3tD XZzBcO5XCYysaI9Uuk4TPDw RTWlpXQqX142z9ozi8zvekV blQV7dEhhNOHuyczxRvR2ML rfVBKihxdnCQt7AFnvFVJje PP9ODEwrLQpH4RaOYGpQL8u okh1UCD1ASklIPGjCyF2WQS vrILnUYGyyHsxJLlig094TR Y1KdImDCNduiWwxKjylO2jO cEnLMQ8YEHlKCyhYJryYTGV U6giPUQ8 CLINICAL HISTORY (test s0bhnVFvFUOpqXF6QoVgPKR code = 3356) qn1mga1FybWHcqRMxIQmgzJ SpzwGtcz59tQH2zI66UF6sT GFiDcD4TGWcwoP6Iks3LRFc UBXjoEOfS934x6ovx6ehyvT obJF8kHdnSVXyydccYjC7TJ taZDDhwpsoWCx1KPxcZDBpt MB5QEAxgGGcV2MsXMRlYE2m atv7TGQ9OPhaGYViNiH9HKV ioEItRNLeuKvhKRasu584LB I8WbWtWYXuybVciDijoX8jI nPeFZAIsqFpG3WpJRn0xYAk cGFyfQ== SPECIMEN SOURCE (test d6unzADnWCFcjZZ3IsNzOOD code = 3377) zs3yjv8RuaZPkdGRaZPbfdB EqdiOxfz34sWA5pC60ZG0yQ CMfBnU3PCOnjsS3Iph7FWRo XCQdtVJcV138u6com1ozlqZ rkNX0uExqRKSpnwzhVpT0BB btVCBtkqdlAIs9GCfsHMInx VI6RDHlbNYzM4AjHZKxEK0c kqz5TJE1LRtzMQFxNbG7IGX emZHuBJBakHfxTNexg716XN B5ItQcGNJyhgLwcZfwtI4bQ nMyMCBNaXRyYWwgdmFsdmVc cGFyfQ== GROSS DESCRIPTION f6ybyPPfKKZqhJLwYmDdFJE (test code = 3366) kFDNaw7geYIJajYHdCfSoKk NcZnRuYmpcdWMxXGRlZmYwe 8fya228cAGbw1zoNTGpAoK3 iRDlCLWbaNAaB348ZKFyHAc aw5bon2SuLINlnFMxp0H8VQ GJevbesUm8rZbwQ35rn3C9F eayA4cbGQIiRUEmB5AjIM1u AKHmSdl4OUJ6BAU9FTKnPFS eK2XhOH8tNUCysRHuVBm4o5 ybpQfeQJMhWFX2l0jkQOyiv xEoQX1qmo4ucJi8p5tpfyYl ZSSjNWTyfEIGSCKiG1YcwSs oGt0onDq5dFrjQuzaPHE5Ju f5SZ6lin35rwn4bBkfVTNuh ccbJtS7JWjaKGKzustwGKd8 MFxtYXJnbDcyMFxtYXJncjc yMFxtYXJndDcyMFxtYXJnYj upGSrsMBIbYEO4ZCgqo444O FB9YCztl6epw1qcyDLcLmq6 NKXuIcDfTpjqUWfuc2Ufr2e mUJFuta1xZLX2yQTgrXxmu6 K7fNYnZWOchAZumbSySDGyA nP2SKuaCL0aau00QXDvYFF7 ey1xsCWgyFumenBbqOLtBFj xJ7CnEFHcv260ZWOvS0SaEG Hyn6K5tjKiOlNpBWUvwRN1y mT2IGWmKNv4eYZpajQ6zaPa qEXiQ5cneT14IzUkhCBeK6J tyK28MfUiyNUjG5PrqL06Xa TlzGRpY0OmnN13GtSdeNMmM WOnjGZtZj0nbUTlxWPuq4Di nCQhLZviR28db839ASYlbyI tY1qulSFwwouorCOhgakwKF feemJ4TDOvPZMaUEiyLSHzH GZzMjBcbGFuZzEwMzNcaGlj hIbuAIimGiLxHJVvKViiS9r cZjBcZnMyMCBBLiAgUmVjZW k8LDFeqW1sNy4miDLlkP1bj VPvGZxeJHS4pLFySMWfIEKx MZFyWK08X6LgtV9et5WfUVA pu47hFV5fRGJeyEGwCStxzh FsdmUgbWFzcyIgaXMgYSAxL tDiT61lsU7dqPAzA4QkPBV2 IDAuMyBjbSBpbiBkaWFtZXR vsrK6WB0jbFrenuF8hYBrrV IzOHxmkXJcWYeiZJX2Yu4qh LVnMGOhfsZ7a2GgKUvpKBZs l5LroQFrZOFkMyufYVVemPI iILQcsuEgnRxceP9eZoDcCm MyNFxwbGFpblxmMVxmczIwX CppzkmeCEVyNGqjA2mvWeDt IDZleYrlFKzfn4LcYUOaRRO rQiGxGLMtFMZdv1ciEY09LS xwbGFpblxmMFxmczIwXGxhb wyyNQRdTJmyQ4slRmTzWUXu jNohBJvml1WrZDDaFYQjXuY ccGFyfQ== MICROSCOPIC j6abjOIdFDFuyGO0JkLqALK DESCRIPTION (test code xw8wdp8LeaMEnqLPsUJmtcY = 3371) PlwqRcvv18vYY7bH04NW6qI LRuNzY6DPAejoX2Sha9ATMx NHCaiOGpL115v1nwb7dmknZ hjRU7cIjtSCGlkornJuY1GA nhHEYheqzfRNg2ZMymSXDby IT3NDGvxWUfP0RpSGGtSM0h ayh9DXW0BOwaBNYoVqR7SPS gwAEhXSKljGenJNsys639IF J6KrGvBGYobfWpaMwtuX8wT vDeEBNPSQTgx6JbWNFpUEDz cn0= SPECIAL STUDIES (test i0ufyRMoNWVtuOF6MtQdZXD code = 3376) oe5duz2YeeNXxpICwGRumeC KfkcKddz71wXX3vG71DX6cL KFjTwN7IIVqymE4Ieq5JYZc ZMUbtIFpZ438FRPxDWMslQq atbv0nP85TODvuY5zuETgHV nazmRjCOsohhBvsfYsCqs2B BZ7vJajBAOwzefdJyM6VWem ERUaetvvCGt8LWekQSCeuAP 4GDFxmFFcS4NvHDKwVQ1hlr j7UGM9NKicOQBaEtW1KHEzx STlKJUjdFbgKVlkm660QTI2 VjObEYCuzfPleAgmhP3eBwR cZnMyMlxjZjEgVGhlIGludG JctBPklLG8gT7rVO7gZOAvi QHcS1PdLGDligIymMVwVUR2 bRFuoEEeQN7bCPelnFJdi0a nk0TmD9itkEurlGV6QW1hWK EfXEBnDUnkq4VuqO6rXzhxA ODtL1HtBJSJL4CXKYNqVRRK Wk4PZkLZZbUlLyVEWu7lAOp NUywgQUZCXHBhclxwYXJkXG QeUECLt014mt8tGPGkvFBhs pSSbVDftA7wUUcdVMjuZNoj uXYkLEkmo0khPUCgl2f1kKA fRKNbifGbe4peSVpnlrIgDG FiyTQdzVKpISKql36hQOxxs JwevBzmTHCyt8WvaLfax9Pa RwEtNQiwf7SeN29jkATvpDH iuAqdFBTfiyOvYOQqc89pb8 wqDRNsZqZ7oISgxCT3pFMcm ZOzm5GnnRnrIOTcl4rpUPXj cv2prgcodVIiv0DxwJ9jwif pGIpchMYaioWoAJEoq2g6vS DlZAXfCHVcWWwcnAw6WVXmf 509ou8youL4jDIwXNU5HSwv YWJsZSBhcmUgZXZhbHVhdGV cKGNnbvZoLYPhrkSJhA35nf 4rtYT4x0PkXE8zs6WvjSV7X WNobmljYWwgdGVzdGluZyB3 QICkuHMiHa6pwCNoMTS1BMJ lvCmukdDAmG5uTRZkFKs0JF EcTjQcXszyyhSBWKVuA3AkR GWcmxBybvhyQJM2pS2ea7o2 VBpwVm3uOMGvwccec0tvzcV cnYXiy3RjRLEhseApw9GcVS TizqXmgGUdCXSafeIuco7to aFbOBFiVSEfN4TtzgyjoInu blP8OMDrNHPudMDzxDyvWHS fRJa7XAwvjhBon2YqYnBkgh YlmVGkqgAtRE5wCUYkkDWnk vDlRKU4OLEjQSGNWaQoWKEl b2WlBB0gUPNqlHyrBRMttP4 ox9OqRDFtf46oTFNyRXVHRG EgaGFzIGRldGVybWluZWQgd NiefPMztXSePIYtMIQsDR9v ANAlatJrgDXhb1FpiJUuyvY kb1ZbqgYcOGLdDKE7GiNPjD FjmYJhxMIivhS0u6TqSNEoc nElzAkttYJafZComLMwv6Oc wy8nJMSoz1patCtcEQ6nzYA iZSByZWdhcmRlZCBhcyBpbn Gby3GcQ9N9jL3pQXark4XwE e7jSEPmt0RfhlTyOlDRiUek PMixYe3bYNUddckqsZMpX7Q ydGlmaWVkIHVuZGVyIHRoZS SHwKstrCBkdSGFMDWxpgU3x 2C6YAzlvQXhpkTkDZ79XYGk DZ5pdWWxyHFuu8NfFEf3RJZ kA3iHGS10ALctAKOwgPKzqF fiuYKdPOPnQKScpiFtlc4rv KptwBRlr67haKS2zHV5GOOr xF2eA5NiHZrfDk9nSDJmikv dmZTfjNjzIu5gsYGrgC== Gross assessment was [facility]'s performed at [facility], code = 2777) Department of Pathology, [address] [place] [address], Technical component [facility] was performed at ([facility], code = 2778) Department of Pathology, [address] [place] [address], Professional component [facility] was performed at ([facility], code = 2779) Department of Pathology, [address] [place] [address], [facility] [id number] 15:29:08 Test Item Value Reference Range Interpretation Comments Case Report (test code Surgical Pathology = 104) Report Case: [id number] Authorizing Provider: Logan Russo MD Collected: 06/18/2021 11:41 AM Ordering Location: [facility] Received: 06/19/2021 03:44 PM PERIOPERATIVE SERVICES Pathologist: Tom Paige MD Specimen: Mass, MITRAL VALVE MASS- for MICROBIOLOGY then pls send to Pathology DIAGNOSIS (test code = [id number] 3220) uZzEwMzNcZnRuYmpcdWMxIH tccnRmMVxlcGljOTYwMVxhb wTaQWXrsSPwV1EkndokDDhi TZ3aIX5dvWgbmGWjdYJoLBE qPcCdy3mhq253dAFoz9oiFP XJreaxeGe8dBjkK96yl2M0M rlgC50xaXIgGWI6ATLoVATt jZHsTYFnMWY1RTFdzBIiX8b yVZTlWR6wdqquHTmhITulUY RlkGW8HZFawDBeV3CrIZOpX HyqNJAbaxj1FjOaLz5itOFe eTcyMFxwYXJkXHBsYWluXGZ cLyIhEL2dKARSBnNqUO0PTY JBTCBWQUxWRSwgREVCUklER Q3IKgGxHH4VMFCBONCBJuge cGFyIEZJQlJJTiwgQUNVVEU aAF2QTGDPXHBYS3VSZKRQF8 HXZ1UUJHTHSvOiR3FVR4eIS NLHJLySAs5dzIUzKLFVIHSX TCczM4LPNF2YHRPJQbCXDuG MA0NYZ8SPUQ2EX5NTEJRAZl BEGY5ZJP4GARRQMKDROhKMN CKDHsWIH2uIP4syDGqpAUYn G46LBkHPMYDQN88tM9rFQHJ JFIUNV4YSV0fFI0kXGKvlK5 BAZZqTKxWNOzJCRDJDDS0ML gUIPW9xYEYswg01SHW0RwCh g1B8WXU6UMLsEPXbe8poNLC mbGFuZzEwMzNcZnRuYmpcdW YkOZTlVvUrs5vad764aWDvc 6coSXYvShP9bROuFIDjbFHk B717LLGmMDsxp9sey0HtYLY qtSIbu4U7EMKAseqhcOz5qE foK87cp3B0InspT4tgTDGrU MNaC8PvNN1qMJHjLrq6IQI6 SZB5QTMhPHQgI0LcGY5rIXO rdSRyWEd4z6yosHepYXPkGO J3k6vtBZrxtpJuBP9abw5xz Ca7x5cbddVlJBRhXUIakTQP FAAlR7AtxIvgGz1ouTw4qRs mJsvaOSG4Ytx6AH7hgd44cn z6qIztMQYlwsrtDjZ5IOukH YHrefooMTj5QZofEXZvjUP3 DZIxxVApV3GlAZPsPG1trko 5TUM1BNzbAKJaBrC1WQRkfB EwVKNqkQxnJUslm068KRZ3P aJbVO2uN7Xhl6V2oQ4qyBPn VRQdeGXcOeCzITTyls2ccTT aHQrja5GqQZC2rsG7iIJmnP IaFQLzBqV9IAnvIT7onx66N BHiIFG3pm9olOBsiUhwcnZc fLVbDXdbQ2TuCZJlr504SXB jV1VcAQCey9Z2gfNiIlEdQC TieKM2jlP9TSZeFE6kdacbf 7xpINkuBXenFNOpfvZ7ulK3 LJYrjRFvU1JppO0lQMJxGW7 gwlfer5yzJMJ5AMowOHQeBM X0AuPtURMbe4Itjpm0NzCtu 4VnqZEfKQwvL33xr205ESIi gdVaZ7rteIViikyzwAHuxoa lAAbixcA5CRHtYNmfwsqgBL PqHVcbY0yqUsPyCTIskBlpN Sgnz4ZtJDWvZLHvEdOqhQTr GNCeFcx9XTQcnAUfUOXnUbB vS6dgsyafAnYWAECqa5ufC1 puvOWXtSPyI2OcIHepkyUiJ RaiEYqrVnIsKQPkXD21UOT5 VNUcoo16 CPT Code(s) (test code r7qqlKNtLSIwxBU4EzTqTEX = 3357) fi9aao9KglLYylUOwPEijfO LodkFuvn62aXM7wJ81EC7zW GEmYhW7XYKcmfH9Cdh6CWWc OAAzmSMzK475x9mic2qttwS ifWW8xZuaHUNubfqxSeP7DM sePKRktvwpYBz7MFnyILZag UE9HSYpwMBwY3BkIBQcNG6d wus1APR3ANzkZDAkUdG3SYJ osBRxNLLdgOonYVccn010SL R9MeKnZXMjrnKxjHxkaG6aA jXaBRK1GXLmKBjzFPcjFRHV Y2kuZPB0 CLINICAL HISTORY (test t7sseWDmWOItbNW1RwFfRVU code = 3356) gk9vxo2LzbXAvhHGhTTkxdW LaajVnik47uOG1hY49OH6gO JOqAvH3WVOvijI1Saa4YSRg OJJuvQXpC598z3byx5iiitM mcSA6qJuuLHJwlphkQqL7DY rrNYDbttmoCMq1XAszKYRbd PO0OKPczZZmY7YqONQoQI8m kve9WEG6ODgaDYDwFxE9XCZ qqARrURJnhFpwQJifs648QC Z7BhCpWAUmqmLifHsnaH2nA qRdZUVGzzWrY5QsVMf5oPPr cGFyfQ== SPECIMEN SOURCE (test j0gtyABxOCEujFM5LsBfVGX code = 3377) vq0avb2OphLKuiHNcNFsadX PgnqXogy03uGY0cF02VG1jQ IEfHiZ9MVLjydM2Irq5MKPu HPCzpXJrF280c5dio8wrasG wsMY2dYdkJRCyahhfNuY0HK ioDZAjmdhoGYg1YSbmXILbu KJ0PDMshIKtR0JzYWIzZZ9w jqc8ETK2TBeqJPIjAoC6LPN ntZCuDMPhcXdhLDimk424KN O0SoQsWGZtgqBbbDvlnF8vF nMyMCBNaXRyYWwgdmFsdmVc cGFyfQ== GROSS DESCRIPTION l6hqmTMtZJOauPDqLsEtKOA (test code = 3366) aHGAqu7hrIAOvzPQmTbRhIi NcZnRuYmpcdWMxXGRlZmYwe 2fkq681wYJnr9ijSXJsAjJ4 bFFnBOFtdATxT283YTZxZMh mz7xkv1KpWSVanDLqc1F3BM EIgqvebUf7wYqwF39hv7K1H wvhE6bgVPEyTLVkX9KuSO8r XJKcVcc1FWI2SAA2IMOdFTJ xF3IpFO2xVHTsoWGzQMw1q7 gurTxhMFEiNHC9w5bsMFtfa yTxYI3bhy8pgVc5b0gdoaWd CGCtTVWtoDXBIYFxA7UozRu aXa2saJy9cCifNycwDJH3Pp j1UJ2itl82mgx8sDcyEQQta niqLsZ4HZpoTREihcqkDUo0 MFxtYXJnbDcyMFxtYXJncjc yMFxtYXJndDcyMFxtYXJnYj rwFOtpJJGqVJU2INppn419O IT8KKkps9lzj7osaFCyUjc0 UHRfLsNjXzxzFApva5Yoy1z eLIYgtb6bRTM7eOCkyRivf4 E1jTEiRWLctIHrkrPsSLFpX mC4HGygRT0srs62XTUjLJE6 np1ysZGpzKbrykIkkCSpISc pD6PkKFWup687XTClI6RyWW Kok5H0fzBbWbElCSXleMF8v mD3ALSsKXj1oDPfiyO5avFk mVEwD2xhkL07ZqJjhTImA6I jqP41JrEdnKWcJ2HihB78Yc FhiPAyO1AioO75WfOamVRaF EEvpVWrIi8xhOXbxUTax6Uy kUHzETiaH89uf705OBVzzwS qJ9dvrUCwrduamSCwxptaYA leanB0VTNbHTMcVGvqUNIvK GZzMjBcbGFuZzEwMzNcaGlj xHdzSZjvZoJlOLJaWInyJ3f cZjBcZnMyMCBBLiAgUmVjZW g0EJPonZ0nCp8plXExfT1nw JVeVHizBDE3eYHgLSQoYKNp OOWrWD42C4LtxP3eq0JdOSW jk28kXZ3hJOBpgLNwRVjamq FsdmUgbWFzcyIgaXMgYSAxL lOwC16fgU9dtTBuK6WiBAF9 IDAuMyBjbSBpbiBkaWFtZXR uwgE6KB9teZpdnxW2gLHalZ YrEKowkZHcHXepMLO9Hm4xv LXnIGAuxnX0s5JrCBhkMMPf h4WqaUItEHZlXnkgFPSwkZW gTBMfxkTxcEdbjX6oOrFvWm MyNFxwbGFpblxmMVxmczIwX TerqoakPNOwUVedB2grNsQv HYSjiPplWOxyt0BuDJQfKIE uKhPcXAVhRRJbm2haIV83SZ xwbGFpblxmMFxmczIwXGxhb hbtRICxTHvgS2rpCuEkRHDc eCxmEVcmy9ZdGKHeIRXvGvU ccGFyfQ== MICROSCOPIC x2dtdKPoBOMvoGC1XdUmYPT DESCRIPTION (test code rb2roz0DafHAdaUPkMWkzdS = 3371) RfkqKsuq51rXY1zL50FW7jJ CDkXoY7ZWPnbsK3Bpi3EMUf IGCxfMYzK037b0dgx2dbknK qeAA9fLnaUGPqvovjGcY9CX caOMWkszfhKLi3GDuaHQFwl IF0KBXbwQBeX0AgNQIuFA0k ena3LDT1ZDzgWFOsHuF9OHW hnPWmGKFtgZnhMUfgf257CW Z7OhAmHLFgyaFkcWmczA6vH pEqAJQWOPLgc8YoUMDoKHMi cn0= SPECIAL STUDIES (test u9mehYFfMTSrfAU2QgFgOQG code = 3376) em3kij3CktKAmmJZbJEdycW QhrwSobh28kQJ1rM58LV2wO FPkUtK3AONyeoO2Jho5ZVUw HDVnqVNzU118NRSeVAFrhSi uwhv6aI81ZSNraO6yoSAhEG vbkeUjNRerhfTizqEpFrd7J DO9xTwdBMCaetwsLaK9BMnm KRYsdcddJXh4JVouVEPkhPX 0UJLhaCPhV4DsSDKcES3env g0EKH2OTjhACSqZwK2GULae LQzTSHedPdzYZuri851ATU1 QxXsPCEztyTkfTkbfJ2bWrQ cZnMyMlxjZjEgVGhlIGludG TtvENqsBT5qH0aGL5kIQIgi QXiL0SjUTCjlzXhfFTsYLV8 dVOkjYJrZQ3vGFywxCRqe2m xg5YvV8qvfEpweTN9XD9wCL IhOHMwZKedn0YrzR0hDnubB TFxO0PgWCKWT1CITQTpKBXU Gb2CPwFTZtPzNcSFTs5iRUp NUywgQUZCXHBhclxwYXJkXG FjFYINn811yw4zJSKpfYEsd sRTcSBorG3nQFxdVSpaQAdk aTKcIYyrh6rcDPZuv3j2tHG tACMyzkDis0qzJZqcguOpVB IjuYFhlVJiFNIqd72uCXvwi WllaGdyJICgf1ZuuGdjt7Va AtObVPfgi4WwQ06pmKGgeCS ozAjxWERzwoPsIZLtb35pp2 gwGYMrThS4tARnqHW0lWNqd WPat7KspCheEWKpk4yzSSKx hz8pjoqpqRBaj5LrkE3cuve dUQpsoUGjjmAdTECfm8d7jN OgHTRnQNUlNZoutOg1VQEta 389vc1wxlA3fRJaYFC4PDpm YWJsZSBhcmUgZXZhbHVhdGV uRTTkxyDqDGSwpoRDzA22gq 5jkXV7p8BdEG5xf8WuwDM5S WNobmljYWwgdGVzdGluZyB3 XWRunLRwYp8ftOIpMEB3JKJ jlOezuuLXiZ4eIDImLQz1KA DsBpYvOqozgjTTVMFxT1DeG VIakeZvswezDBB9vD5qi8v1 VGttDp1kBPSoueciw6nvavW jzWOlt8HiROHdlhGvb5JkDJ KucpPnxZXqXIEofvHylk5em oXtHRPpBVDvY2BljiyieImm zoM8GLIqXGAseCQeyGacQVO qRKj2ADvelrIfg3WfRtQhkm BsgVIpdiChHF5vCJOudUApx gWoRSM6OBNyZKUASgYuBVXt t1JaEO7eOHNjmCfjHVDfgL6 zh6QfAJXfo69mHWMkFNOHZI EgaGFzIGRldGVybWluZWQgd QrvvIOwbELtASOrZXAhHC4t PHBrjqHehVTcf3MvpBRoipT mx1KqsrZkDJEoCUO8QcYYsE JukZDfbBDmsfL5f5KdAWTct rOixUeyiKZomRFgcGTwa1Lg sb5fPIUbk6netBpaQH0xkLH iZSByZWdhcmRlZCBhcyBpbn Zps1OrV4A9fM9eJIcrv1TiZ u2jUKKon2FnymVpMtRAdRlx CXjlNw5eHNOtcyebwYSfJ9V ydGlmaWVkIHVuZGVyIHRoZS LZpWjbnXWypKKLDWEjrrP1y 0F3LDdkeYJlqnWsYL95YFRr QB4lxVAykDEau9RzOLo0LQI rA8yGGA71CDbbZJJhnSLhcS plyITnNZPtIPDysvYrdq2uy LxbkSXvs96hrPF1cOH5KIVy uZ8xD1WdVIboGk0rWRBqryr wjCQxoJmoIu9wlGCbsH== Gross assessment was [facility] performed at ([facility], code = 2777) Department of Pathology, [address] [place] [address], Technical component [facility] was performed at ([facility], code = 2778) Department of Pathology, [address] [place] [address], Professional component [facility] was performed at ([facility], code = 2777) Department of Pathology, [address] [place] [address], [facility] [id number] 12:37:44 Test Item Value Reference Range Interpretation Comments POC-GLUCOSE METER 98 mg/dL 70-110 : TESTED A T [facility] 6720 (BEAKER) (test code = [facility], 1538) 26293: Director Of Enterprise Architecture/Techni kelle ID = [id number] for Kathleen fay (contract) [facility] POCT-GLUCOSE [id number] 08:40:16 Test Item Value Reference Range Interpretation Comments POC-GLUCOSE METER 120 mg/dL 70-110 H : TESTED A T [facility] 6720 (BEAKER) (test code = [facility], 153) 33647: Director Of Enterprise Architecture/Techni kelle ID = [id number] for Aditya brewer (contract) [facility] BASIC METABOLIC [id number] 04:46:57 Test Item Value Reference Range Interpretation [...] S NOT APPLICABLE FOR DIALYSIS PATIEN TS. Director Of Enterprise Architecture ID - HIEN MRAD, CHEST, 1 VIEW, NON [id number] 04:07:00Reason for exam:->post-opShould this be performed at the bedside?->Yes [facility] 1955 Sex: FFINAL REPORT RAD, CHEST, 1 VIEW, NON DEPT INDICATION: post-op COMPARISON: Prior day's exam FINDINGS: Portable frontal view of the chest. IMPRESSION: Support Lines: Stable. Lungs and pleura: No interval consolidation or sizable effusion. No pneumothorax. Heart and mediastinum: Stable contours. Additional findings: None. Signed: Andrew Cary Verified Date/Time: 06/24/2021 04:07:26 [id number] 03:54:16 Test Item Value Reference Range Interpretation Comments PHOSPHORUS (BEAKER) (test code = 4.3 mg/dL 2.3-4.7 604) Director Of Enterprise Architecture ID - HIEN [id number] 03:54:15 Test Item Value Reference Range Interpretation Comments MAGNESIUM (BEAKER) (test code = 2.4 mg/dL 1.6-2.6 627) Director Of Enterprise Architecture ID - HIEN [id number] 03:40:54 Test Item Value Reference Range Interpretation Comments PARTIAL THROMBOPLASTIN TIME 40.8 seconds 22.5-36.0 H (BEAKER) (test code = 760) PROTHROMBIN TIME/[id number] 03:39:49 Test Item Value Reference Range Interpretation Comments PROTIME (BEAKER) 13.1 seconds 11.9-14.2 (test code = 759) INR (BEAKER) (test 1.01 See_Comment [Automat ed message] code = 370) The system AwoX generated this result transmitted ref erence range: [...] WBC 0-0 (test code = 413) POCT-GLUCOSE [id number] 21:07:58 Test Item Value Reference Range Interpretation Comments POC-GLUCOSE METER 143 mg/dL 70-110 H : TESTED A T [facility] 6720 (BEAKER) (test code = [facility], 1538) 36949: Director Of Enterprise Architecture/Techni kelle ID = [id number] for Sheryl Bergeron POCT-GLUCOSE [id number] 16:23:05 Test Item Value Reference Range Interpretation Comments POC-GLUCOSE METER 126 mg/dL 70-110 H : TESTED A T [facility] 6720 (BEAKER) (test code = [facility], 1538) 97133: Director Of Enterprise Architecture/Techni kelle ID = [id number] for BE RNANABIL, OSMANY BASIC METABOLIC [id number] 13:28:45 Test Item Value Reference Range Interpretation [...] S NOT APPLICABLE FOR DIALYSIS PATIEN TS. Director Of Enterprise Architecture ID - HIEN MPOCT-GLUCOSE [id number] 11:56:58 Test Item Value Reference Range Interpretation Comments POC-GLUCOSE METER 122 mg/dL 70-110 H : TESTED A T [facility] 6720 (BEAKER) (test code = [facility], 1538) 01933: Director Of Enterprise Architecture/Techni kelle ID = [id number] for OSMANY VOGEL 2D Echo W/Doppler(CW/PW/Color)2021-06-23 08:20:29Ejection FractionSLEH ECHO [facility] Echo W/Doppler(CW/PW/Color)2021-06-23 08:20:29Ejection FractionSLEH ECHO [facility]ARTLAB [facility] Echo W/Doppler(CW/PW/Color) 2021-06-23 08:20:29Ejection FractionSLEH ECHO [facility] Echo W/Doppler(CW/PW/Color)2021-06-23 08:20:29Ejection FractionSLEH ECHO [facility]ARTLAB [facility]D Echo W/Doppler(CW/PW/Color)2021-06-23 08:20:29Ejection FractionSLEH ECHO [facility]ART[facility] Echo W/Doppler(CW/PW/Color) 2021-06-23 08:20:29Ejection FractionSLEH ECHO [facility]ART[facility] Echo W/Doppler(CW/PW/Color)2021-06-23 08:20:29Ejection FractionSLEH ECHO [facility]ARTLAB [facility] Echo W/Doppler(CW/PW/Color)2021-06-23 08:20:29Ejection FractionSLEH ECHO [facility]ARTLAB [facility] Echo W/Doppler(CW/PW/Color) 2021-06-23 08:20:29Ejection FractionSLEH ECHO [facility]ARTLAB [facility] Echo W/Doppler(CW/PW/Color)2021-06-23 08:20:29Ejection FractionSLEH ECHO [facility]ARTLAB [facility] Echo W/Doppler(CW/PW/Color)2021-06-23 08:20:29Ejection FractionSLEH ECHO [facility]ARTLAB [facility] Echo W/Doppler(CW/PW/Color) 2021-06-23 08:20:29Ejection FractionSLEH ECHO HEARTLAB MKCKESSON CP[facility]I [facility] [id number] 07:43:14 Test Item Value Reference Range Interpretation Comments POC-GLUCOSE METER 111 mg/dL 70-110 H : TESTED A T [facility] (BEAKER) (test code = [place], 1538) 40420: Director Of Enterprise Architecture/Techni kelle ID = [id number] for OSMANY VOGEL BASIC METABOLIC [id number] 05:48:55 Test Item Value Reference Range Interpretation [...] S NOT APPLICABLE FOR DIALYSIS PATIEN TS. Director Of Enterprise Architecture ID - HIEN [id number] 05:28:52 Test Item Value Reference Range Interpretation Comments PHOSPHORUS (BEAKER) (test code = 3.7 mg/dL 2.3-4.7 604) Director Of Enterprise Architecture ID - HIEN [id number] 05:28:51 Test Item Value Reference Range Interpretation Comments MAGNESIUM (BEAKER) (test code = 2.2 mg/dL 1.6-2.6 627) Director Of Enterprise Architecture ID - HIEN MRAD, CHEST, 1 VIEW, NON [id number] 05:08:00Reason for exam:->post-opShould this be performed at the bedside?->Yes [facility] : 1955 Sex: FFINAL REPORT RAD, CHEST, 1 VIEW, NON DEPT INDICATION: post-op COMPARISON: Prior day's exam FINDINGS: Portable frontal view of the chest. IMPRESSION: Support Lines: Stable. Lungs and pleura: There is improved aeration of both lungs. No new airspace consolidation. No pneumothorax. Heart and mediastinum: Stable contours. Additional findings: None. Signed: Andrew Cary MDReport Verified Date/Time: 06/23/2021 05:08:22 [id number] 03:01:03 Test Item Value Reference Range Interpretation Comments PARTIAL THROMBOPLASTIN TIME 35.7 seconds 22.5-36.0 (BEAKER) (test code = 760) PROTHROMBIN TIME/[id number] 03:00:01 Test Item Value Reference Range Interpretation Comments PROTIME (BEAKER) 13.3 seconds 11.9-14.2 (test code = 759) INR (BEAKER) (test 1.03 See_Comment [Automat ed message] code = 370) The system AwoX generated this result transmitted ref erence range: [...] WBC 0-0 (test code = 413) POCT-GLUCOSE [id number] 22:23:22 Test Item Value Reference Range Interpretation Comments POC-GLUCOSE METER 146 mg/dL 70-110 H : TESTED A T [facility] 6720 (BEAKER) (test code = [facility], 153) 55318: Director Of Enterprise Architecture/Techni kelle ID = [id number] for NE MS, SENORA POCT-GLUCOSE [id number] 18:28:19 Test Item Value Reference Range Interpretation Comments POC-GLUCOSE METER 101 mg/dL 70-110 : TESTED A T [facility] 6720 (BEAKER) (test code = [facility], 153) 77726: Director Of Enterprise Architecture/Techni kelle ID = [id number] for Ho edgard (contract), Amb er BASIC METABOLIC [id number] 14:57:30 Test Item Value Reference Range Interpretation [...] S NOT APPLICABLE FOR DIALYSIS PATIEN TS. Director Of Enterprise Architecture ID - AAHAMIDPOCT-GLUCOSE [id number] 12:37:53 Test Item Value Reference Range Interpretation Comments POC-GLUCOSE METER 69 mg/dL 70-110 L : TESTED A T [facility] (BEAKER) (test code = [facility], 1538) 08039: Director Of Enterprise Architecture/Techni kelle ID = [id number] for Frances knutson (contract), Amb er Oxygen saturation, [id number] 10:49:59 Test Item Value Reference Range Interpretation Comments O2 Saturation (Measured) (test code = 79.8 % 69124-4) [facility], [id number] 10:49:59 Test Item Value Reference Range Interpretation Comments O2 Saturation (Measured) (test code = 79.8 % 88322-7) [facility] HospitalO[facility] saturation, [id number] 10:49:59 Test Item Value Reference Range Interpretation Comments O2 Saturation (Measured) (test code = 79.8 % 80728-6) [facility] saturation, [id number] 10:49:59 Test Item Value Reference Range Interpretation Comments O2 Saturation (Measured) (test code = 79.8 % 82198-0) [facility] saturation, [id number] 10:49:59 Test Item Value Reference Range Interpretation Comments O2 Saturation (Measured) (test code = 79.8 % 23546-4) [facility] saturation, [id number] 10:49:59 Test Item Value Reference Range Interpretation Comments O2 Saturation (Measured) (test code = 79.8 % 40303-9) [facility] saturation, [id number] 10:49:59 Test Item Value Reference Range Interpretation Comments O2 Saturation (Measured) (test code = 79.8 % 37693-4) [facility] saturation, [id number] 10:49:59 Test Item Value Reference Range Interpretation Comments O2 Saturation (Measured) (test code = 79.8 % 13147-1) [facility] HospitalO[facility] saturation, [id number] 10:49:59 Test Item Value Reference Range Interpretation Comments O2 Saturation (Measured) (test code = 79.8 % 57027-3) [facility] HospitalO[facility], [id number] 10:49:59 Test Item Value Reference Range Interpretation Comments O2 Saturation (Measured) (test code = 79.8 % 73338-3) [facility] HospitalO[facility] saturation, [id number] 10:49:59 Test Item Value Reference Range Interpretation Comments O2 Saturation (Measured) (test code = 79.8 % 26296-3) [facility] saturation, [id number] 10:49:59 Test Item Value Reference Range Interpretation Comments O2 Saturation (Measured) (test code = 79.8 % 45297-5) [facility] HospitalOXYGEN SATURATION, [id number] 10:49:59 Test Item Value Reference Range Interpretation Comments O2 SATURATION (MEASURED) (BEAKER) 79.8 % (test code = 1455) BASIC METABOLIC [id number] 07:15:45 Test Item Value Reference Range Interpretation [...] S NOT APPLICABLE FOR DIALYSIS PATIEN TS. Director Of Enterprise Architecture ID - DBRAD, CHEST, 1 VIEW, NON [id number] 03:19:00Reason for exam:->post-opShould this be performed at the bedside?->Yes [facility] 1955 Sex: FFINAL REPORT CLINICAL INDICATION: post-op Comparison: 06/21/2021 The cardiomediastinal contours are stable. The lung volumes remain low. Central pulmonary vascular congestion and bilateral parenchymal opacities are unchanged. There is no pneumothorax. Support lines are stable. Signed:Braxton Quinteroeport Verified Date/Time: 06/22/2021 03:19:08 BASIC METABOLIC [id number] 02:00:09 Test Item Value Reference Range Interpretation [...] S NOT APPLICABLE FOR DIALYSIS PATIEN TS. Director Of Enterprise Architecture ID - [id number] 01:57:06 Test Item Value Reference Range Interpretation Comments MAGNESIUM (BEAKER) 2.5 mg/dL 1.6-2.6 Specimen slightly (test code = 627) hemolyzed Director Of Enterprise Architecture ID - [id number] 01:57:06 Test Item Value Reference Range Interpretation Comments PHOSPHORUS (BEAKER) 5.0 mg/dL 2.3-4.7 H Specimen slightly (test code = 604) hemolyzed Director Of Enterprise Architecture ID - [id number] 01:54:46 Test Item Value Reference Range Interpretation Comments PARTIAL THROMBOPLASTIN TIME 37.8 seconds 22.5-36.0 H (BEAKER) (test code = 760) PROTHROMBIN TIME/[id number] 01:53:47 Test Item Value Reference Range Interpretation Comments PROTIME (BEAKER) 16.4 seconds 11.9-14.2 H (test code = 759) INR (BEAKER) (test 1.34 See_Comment [Automat ed message] code = 370) The system AwoX generated this result transmitted ref erence range: [...] WBC 0-0 (test code = 413) POCT-GLUCOSE [id number] 21:22:08 Test Item Value Reference Range Interpretation Comments POC-GLUCOSE METER 73 mg/dL 70-110 : TESTED A T [facility] 6720 (BEAKER) (test code = [employer] [facility], 1538) 16396: Director Of Enterprise Architecture/Techni kelle ID = [id number] for Anshul tierney Rodríguez POCT-GLUCOSE [id number] 19:10:01 Test Item Value Reference Range Interpretation Comments POC-GLUCOSE METER 83 mg/dL 70-110 : TESTED A T [facility] 6720 (BEAKER) (test code = [employer] [facility], 1538) 17961: Director Of Enterprise Architecture/Techni kelle ID = [id number] for HATTIE SALAZAR BASIC METABOLIC [id number] 14:08:36 Test Item Value Reference Range Interpretation [...] S NOT APPLICABLE FOR DIALYSIS PATIEN TS. Director Of Enterprise Architecture ID - DBPOCT-GLUCOSE [id number] 13:42:11 Test Item Value Reference Range Interpretation Comments POC-GLUCOSE METER 72 mg/dL 70-110 : [facility] (test code = [facility], 1538) 73777: Director Of Enterprise Architecture/Techni kelle ID = [id number] for Sun(contract )[facility] Surgically obtained culture + gram [id number] 11:46:53 Test Item Value Reference Range Interpretation Comments Result (test code = 6463-4) No growth Gram Stain Result (test No organisms seen code = 1123) [facility] gram [id number] 11:46:53 Test Item Value Reference Range Interpretation Comments Result (test code = 6463-4) No growth Gram Stain Result (test No organisms seen code = 1123) [facility] + gram [id number] 11:46:53 Test Item Value Reference Range Interpretation Comments Result (test code = 6463-4) No growth Gram Stain Result (test No organisms seen code = 1123) [facility] + gram [id number] 11:46:53 Test Item Value Reference Range Interpretation Comments Result (test code = 6463-4) No growth Gram Stain Result (test No organisms seen code = 1123) [facility] + gram [id number] 11:46:53 Test Item Value Reference Range Interpretation Comments Result (test code = 6463-4) No growth Gram Stain Result (test No organisms seen code = 1123) [facility] + gram [id number] 11:46:53 Test Item Value Reference Range Interpretation Comments Result (test code = 6463-4) No growth Gram Stain Result (test No organisms seen code = 1123) [facility] gram [id number] 11:46:53 Test Item Value Reference Range Interpretation Comments Result (test code = 6463-4) No growth Gram Stain Result (test No organisms seen code = 1123) [facility] + gram [id number] 11:46:53 Test Item Value Reference Range Interpretation Comments Result (test code = 6463-4) No growth Gram Stain Result (test No organisms seen code = 1123) [facility] + gram [id number] 11:46:53 Test Item Value Reference Range Interpretation Comments Result (test code = 6463-4) No growth Gram Stain Result (test No organisms seen code = 1123) [facility] + gram [id number] 11:46:53 Test Item Value Reference Range Interpretation Comments Result (test code = 6463-4) No growth Gram Stain Result (test No organisms seen code = 1123) [facility] + gram [id number] 11:46:53 Test Item Value Reference Range Interpretation Comments Result (test code = 6463-4) No growth Gram Stain Result (test No organisms seen code = 1123) [facility] + gram [id number] 11:46:53 Test Item Value Reference Range Interpretation Comments Result (test code = 6463-4) No growth Gram Stain Result (test No organisms seen code = 1123) [facility] + GRAM [id number] 11:46:53 Test Item Value Reference Range Interpretation Comments CULTURE (BEAKER) (test code No growth = 1095) GRAM STAIN RESULT (BEAKER) 1+ WBCs (test code = 1123) GRAM STAIN RESULT (BEAKER) No organisms seen (test code = 92601) RAD, CHEST, 1 VIEW, NON [id number] 06:05:00Reason for exam:->post-opShould this be performed at the bedside?->Yes [facility] 1955 Sex: FFINAL REPORT RAD, CHEST, 1 VIEW, NON DEPT INDICATION: post-op COMPARISON: Prior day's exam FINDINGS: Portable frontal view of the chest. IMPRESSION: Support Lines: The pulmonary arterial catheter has been removed. Otherwise, stable. Lungs and pleura: Unchanged bilateral perihilar hazy lung opacities compatible with edema. No pneumothorax. Heart and mediastinum: Stable contours. Additional findings: None. Signed: Andrew Cary MDReport Verified Date/Time: 06/21/2021 06:05:24 BASIC METABOLIC [id number] 03:54:19 Test Item Value Reference Range Interpretation [...] S NOT APPLICABLE FOR DIALYSIS PATIEN TS. Director Of Enterprise Architecture ID - [id number] 03:49:06 Test Item Value Reference Range Interpretation Comments PHOSPHORUS (BEAKER) (test code = 4.5 mg/dL 2.3-4.7 604) Director Of Enterprise Architecture ID - [id number] 03:49:05 Test Item Value Reference Range Interpretation Comments MAGNESIUM (BEAKER) (test code = 2.4 mg/dL 1.6-2.6 627) Director Of Enterprise Architecture ID - DBCBC (HEMOGRAM ONLY)2021-06-21 03:45:10 Test [...] /100 WBC 0-0 (test code = 413) [id number] 03:45:00 Test Item Value Reference Range Interpretation Comments PARTIAL THROMBOPLASTIN TIME 35.5 seconds 22.5-36.0 (BEAKER) (test code = 760) PROTHROMBIN TIME/[id number] 03:44:22 Test Item Value Reference Range Interpretation Comments PROTIME (BEAKER) 14.1 seconds 11.9-14.2 (test code = 759) INR (BEAKER) (test 1.11 See_Comment [Automat ed message] code = 370) The system Awo[employer] generated this result transmitted ref erence range: <=5.90. The reference range was not used to int erpret this result as normal/abnormal . RECOMMENDED COUMADIN/WARFARIN INR THERAPY RANGESSTANDARD DOSE: 2.0 - 3.0 Includes: PROPHYLAXIS for venous thrombosis, systemic embolization; TREATMENT for venous thrombosis and/or pulmonary embolus.HIGH RISK: Target INR is 2.5-3.5 for patients with mechanical heart valves.BASIC METABOLIC [id number] 18:24:15 Test Item Value Reference Range Interpretation [...] S NOT APPLICABLE FOR DIALYSIS PATIEN TS. Director Of Enterprise Architecture ID - PIKEZIA LPOCT-GLUCOSE [id number] 13:44:48 Test Item Value Reference Range Interpretation Comments POC-GLUCOSE METER 165 mg/dL 70-110 H : TESTED A T [facility] (BEAKER) (test code = QUIQUEANTELMO [place], 1538) [address]: Director Of Enterprise Architecture/Techni kelle ID = [id number] for KOTA ARIAS SARS-CoV2/RT-PCR (Asymptomatic ONLY)2021-06-20 11:58:08 Test Item Value Reference Range Interpretation Comments SARS-COV2/RT-PCR Negative Not Detected, (test code = Negative, See 50665-8) external report for linked test SARS-COV-2 [facility] (test code = 96622-0) BRANDI (test code = Negative result for [...] of the Act. Fact Sheet for Healthcare Providers:https://www.[employer]/sites/default/f radha/product/documents/F act_Sheet_HC_Providers_L ndw_FGVG-FrC-5.pdf Fact Sheet for Healthcare Patients:https://www.[employer]/sites/default/fi les/product/documents/Fa ct_Sheet_Patients_Lyra_S ARS-CoV-2.pdf Performing Laboratory:[facility] [place] [address] [facility] ONLY[facility]2021-06-20 11:58:08 Test Item Value Reference Range Interpretation Comments SARS-COV2/RT-PCR Negative Not Detected, (test code = Negative, See 12281-4) external report for linked test SARS-COV-2 [facility] (test code = 00345-1) BRANDI (test code = Negative result for [...] of the Act. Fact Sheet for Healthcare Providers:https://www.[employer]/sites/default/f radha/product/documents/F act_Sheet_HC_Providers_L gcl_SXKU-OeP-7.pdf Fact Sheet for Healthcare Patients:https://www.[employer]/sites/default/fi les/product/documents/Fa ct_Sheet_Patients_Lyra_S ARS-CoV-2.pdf Performing Laboratory:[facility], [place] [address] [place], [place] [address]ARS-COV2/RT-PCR ([facility])2021-06-20 11:58:08 Test Item Value Reference Range Interpretation Comments SARS-COV2/RT-PCR (test Negative Not Detected, Negative, code = 2940178) See external report for linked test SARS-COV-[address] [facility] (test code = 4983009) Negative result for this test determines that [...] justifying the authorization of the emergency use ofin vitro diagnostic tests for detection and/or diagnosis of COVID-19 is terminated under Section 564(b)(2) of the Act or the EUA is revoked under Section 564(g) of the Act.Fact Sheet for Healthcare Prov iders:https://www.Bet[employer]/sites/default/files/product/documents/Fact_Sheet_HC _Lfyltdjcf_Zons_HVOT-AbZ-3.pdfFact Sheet for Healthcare Patients:https://www.Bet[employer]/sites/default/files/product/docume nts/Btto_Klexm_Lhsztmhy_Iwja_BBNP-LbP-1.pdfPerforming Laboratory:[place] [id number], [place] [address]UKOQ-FACBOYW METER 2021-06-20 06:30:37 Test Item Value Reference Range Interpretation Comments POC-GLUCOSE METER 145 mg/dL 70-110 H : TESTED A T [facility] (BEAKER) (test code [facility], = 1538) [address]: Director Of Enterprise Architecture/Techni kelle ID = [id number] for Tash wiseman (contract), [place] RAD, CHEST, 1 VIEW, NON [id number] 06:25:00Reason for exam:->post-opShould this be performed at the bedside?->Yes [facility] 1955 Sex: FFINAL REPORT RAD, CHEST, 1 VIEW, NON DEPT INDICATION: post-op COMPARISON: Prior day's exam FINDINGS: Portable frontal view of the chest. IMPRESSION: Support Lines: Interval extubation. A drainage catheter overlies the upper abdomen and lower hemidiaphragm in the center. [place]-Blayne tipoverlies the pulmonary outflow tract. Pacer device and sternotomy wires are unchanged. Lungs and pleura: Bilateral effusions and adjacent compressive atelectasis are unchanged No significant pneumothorax. Heart and mediastinum: Normal contours. Additional findings: None. Signed: Bayron Cosme MDReport Verified Date/Time: 06/20/2021 06:25:51 Electronically signed by: BAYRON COSME MD on 0 06/20/2021 06:25 [id number] 02:12:20 Test Item Value Reference Range Interpretation Comments PARTIAL THROMBOPLASTIN TIME 35.8 seconds 22.5-36.0 (BEAKER) (test code = 760) PROTHROMBIN TIME/[id number] 02:11:37 Test Item Value Reference Range Interpretation Comments PROTIME (BEAKER) 15.4 seconds 11.9-14.2 H (test code = 759) INR (BEAKER) (test 1.24 See_Comment [Automat ed message] code = 370) The system AwoX generated this result transmitted ref erence range: <=5.90. The reference range was not used to int erpret this result as normal/abnormal . RECOMMENDED COUMADIN/WARFARIN INR THERAPY RANGESSTANDARD DOSE: 2.0 - 3.0 Includes: PROPHYLAXIS for venous thrombosis, systemic embolization; TREATMENT for venous thrombosis and/or pulmonary embolus.HIGH RISK: Target INR is 2.5-3.5 for patients with mechanical heart valves.BASIC METABOLIC [id number] 02:08:36 Test Item Value Reference Range Interpretation [...] S NOT APPLICABLE FOR DIALYSIS PATIEN TS. Director Of Enterprise Architecture ID - [id number] 01:57:56 Test Item Value Reference Range Interpretation Comments PHOSPHORUS (BEAKER) (test code = 4.1 mg/dL 2.3-4.7 604) Director Of Enterprise Architecture ID - [id number] 01:57:55 Test Item Value Reference Range Interpretation Comments MAGNESIUM (BEAKER) (test code = 2.2 mg/dL 1.6-2.6 627) Director Of Enterprise Architecture ID - DBCBC (HEMOGRAM ONLY)2021-06-20 01:36:09 Test [...] 0-0 (test code = 413) Blood gas, [id number] 01:27:29 Test Item Value Reference Range Interpretation [...] 28 Lab Interpretation Abnormal (test code = 57804-6) [facility] [id number] 01:27:29 Test Item Value Reference Range Interpretation [...] 28 Lab Interpretation Abnormal (test code = 64971-0) [facility] gas, [id number] 01:27:29 Test Item Value Reference Range Interpretation [...] 28 Lab Interpretation Abnormal (test code = 01110-0) [facility] gas, [id number] 01:27:29 Test Item Value Reference Range Interpretation [...] 28 Lab Interpretation Abnormal (test code = 26057-8) [facility], [id number] 01:27:29 Test Item Value Reference Range Interpretation [...] 28 Lab Interpretation Abnormal (test code = 77936-4) [facility], jusjzqgw3621-27-57 01:27:29 Test Item Value Reference Range Interpretation [...] 28 Lab Interpretation Abnormal (test code = 48827-5) [facility], [id number] 01:27:29 Test Item Value Reference Range Interpretation [...] 28 Lab Interpretation Abnormal (test code = 22507-2) [facility], [id number] 01:27:29 Test Item Value Reference Range Interpretation [...] 28 Lab Interpretation Abnormal (test code = 19540-4) [facility], [id number] 01:27:29 Test Item Value Reference Range Interpretation [...] 28 Lab Interpretation Abnormal (test code = 78487-8) [facility], [id number] 01:27:29 Test Item Value Reference Range Interpretation [...] 28 Lab Interpretation Abnormal (test code = 42027-0) [facility], [id number] 01:27:29 Test Item Value Reference Range Interpretation [...] 28 Lab Interpretation Abnormal (test code = 78139-9) [facility], [id number] 01:27:29 Test Item Value Reference Range Interpretation [...] 28 Lab Interpretation Abnormal (test code = 47489-0) [facility], [id number] 01:27:29 Test Item Value Reference Range Interpretation [...] (BEAKER) (test code = 1819) 28.0 Calcium, [id number] 01:26:07 Test Item Value Reference Range Interpretation Comments Calcium, Ion (test code = 1993-06) 1.17 mmol/L 1.12-1.27 pH, Blood (test code = 04744-5) 7.39 [facility], [id number] 01:26:07 Test Item Value Reference Range Interpretation Comments Calcium, Ion (test code = 1993-06) 1.17 mmol/L 1.12-1.27 pH, Blood (test code = 48584-4) 7.39 [facility], [id number] 01:26:07 Test Item Value Reference Range Interpretation Comments Calcium, Ion (test code = 1993-06) 1.17 mmol/L 1.12-1.27 pH, Blood (test code = 05975-2) 7.39 [facility], [id number] 01:26:07 Test Item Value Reference Range Interpretation Comments Calcium, Ion (test code = 1993-06) 1.17 mmol/L 1.12-1.27 pH, Blood (test code = 35486-9) 7.39 [facility], [id number] 01:26:07 Test Item Value Reference Range Interpretation Comments Calcium, Ion (test code = 1993-06) 1.17 mmol/L 1.12-1.27 pH, Blood (test code = 32355-7) 7.39 [facility], [id number] 01:26:07 Test Item Value Reference Range Interpretation Comments Calcium, Ion (test code = 1993-06) 1.17 mmol/L 1.12-1.27 pH, Blood (test code = 75733-2) 7.39 [facility], [id number] 01:26:07 Test Item Value Reference Range Interpretation Comments Calcium, Ion (test code = 1993-06) 1.17 mmol/L 1.12-1.27 pH, Blood (test code = 86782-4) 7.39 [facility], [id number] 01:26:07 Test Item Value Reference Range Interpretation Comments Calcium, Ion (test code = 1993-06) 1.17 mmol/L 1.12-1.27 pH, Blood (test code = 39172-1) 7.39 [facility], [id number] 01:26:07 Test Item Value Reference Range Interpretation Comments Calcium, Ion (test code = 1993-06) 1.17 mmol/L 1.12-1.27 pH, Blood (test code = 92746-4) 7.39 [facility], [id number] 01:26:07 Test Item Value Reference Range Interpretation Comments Calcium, Ion (test code = 1993-06) 1.17 mmol/L 1.12-1.27 pH, Blood (test code = 62555-9) 7.39 [facility], [id number] 01:26:07 Test Item Value Reference Range Interpretation Comments Calcium, Ion (test code = 1993-06) 1.17 mmol/L 1.12-1.27 pH, Blood (test code = 69762-5) 7.39 [facility], [id number] 01:26:07 Test Item Value Reference Range Interpretation Comments Calcium, Ion (test code = 1993-06) 1.17 mmol/L 1.12-1.27 pH, Blood (test code = 12832-6) 7.39 [facility] HospitalCALCIUM, [id number] 01:26:07 Test Item Value Reference Range Interpretation Comments CALCIUM IONIZED (BEAKER) (test 1.17 mmol/L 1.12-1.27 code = 698) PH, BLOOD (BEAKER) (test code = 7.39 1810) Prepare [id number] 23:55:00 Test Item Value Reference Range Interpretation Comments Unit ABO (test code = 3385177) A Pos UNIT NUMBER (test code = [id number] 934-0) Status (test code = 7381487) [place]_TIMEINCHART Blood Bank Product (test code PLATELETS = 2263) PRODUCT CODE (test code = H8989I43 933-2) [facility] [id number] 23:55:00 Test Item Value Reference Range Interpretation Comments Unit ABO (test code = 5036044) A Pos UNIT NUMBER (test code = [id number] 934-0) Status (test code = 0026521) [place]_TIMEINCHART Blood Bank Product (test code PLATELETS = 2263) PRODUCT CODE (test code = Z3925B30 933-2) [facility] [id number] 23:55:00 Test Item Value Reference Range Interpretation Comments Unit ABO (test code = 8007652) A Pos UNIT NUMBER (test code = [id number] 934-0) Status (test code = 8444255) [place]_TIMEINCHART Blood Bank Product (test code PLATELETS = 2263) PRODUCT CODE (test code = Y4376X63 933-2) [facility] [id number] 23:55:00 Test Item Value Reference Range Interpretation Comments Unit ABO (test code = 3859867) A Pos UNIT NUMBER (test code = [id number] 934-0) Status (test code = 4735009) TX_TIMEINCHART Blood Bank Product (test code PLATELETS = 2263) PRODUCT CODE (test code = P5832Y81 933-2) [facility] [id number] 23:55:00 Test Item Value Reference Range Interpretation Comments Unit ABO (test code = 0292776) A Pos UNIT NUMBER (test code = M620491970831 934-0) Status (test code = 0115489) TX_TIMEINCHART Blood Bank Product (test code PLATELETS = 2263) PRODUCT CODE (test code = S2337T99 933-2) [facility] [id number] 23:55:00 Test Item Value Reference Range Interpretation Comments Unit ABO (test code = 4838731) A Pos UNIT NUMBER (test code = U008251413634 934-0) Status (test code = 2189752) TX_TIMEINCHART Blood Bank Product (test code PLATELETS = 2263) PRODUCT CODE (test code = U9630I69 933-2) [facility] [id number] 23:55:00 Test Item Value Reference Range Interpretation Comments Unit ABO (test code = 2129026) A Pos UNIT NUMBER (test code = [id number] 934-0) Status (test code = 1542235) TX_TIMEINCHART Blood Bank Product (test code PLATELETS = 2263) PRODUCT CODE (test code = R7096B39 933-2) [facility] [id number] 23:55:00 Test Item Value Reference Range Interpretation Comments Unit ABO (test code = 3793830) A Pos UNIT NUMBER (test code = V746391235602 934-0) Status (test code = 5371918) TX_TIMEINCHART Blood Bank Product (test code PLATELETS = 2263) PRODUCT CODE (test code = K5152O98 933-2) [facility] [id number] 23:55:00 Test Item Value Reference Range Interpretation Comments Unit ABO (test code = 0729368) A Pos UNIT NUMBER (test code = [id number] 934-0) Status (test code = 2298764) TX_TIMEINCHART Blood Bank Product (test code PLATELETS = 2263) PRODUCT CODE (test code = D9496D03 933-2) [facility] [id number] 23:55:00 Test Item Value Reference Range Interpretation Comments Unit ABO (test code = 4657071) A Pos UNIT NUMBER (test code = F008409820755 934-0) Status (test code = 6494683) TX_TIMEINCHART Blood Bank Product (test code PLATELETS = 2263) PRODUCT CODE (test code = E2286P91 933-2) [facility] [id number] 23:55:00 Test Item Value Reference Range Interpretation Comments Unit ABO (test code = 4304577) A Pos UNIT NUMBER (test code = U319490307698 934-0) Status (test code = 1814035) TX_TIMEINCHART Blood Bank Product (test code PLATELETS = 2263) PRODUCT CODE (test code = K0489P93 933-2) [facility] [id number] 23:55:00 Test Item Value Reference Range Interpretation Comments Unit ABO (test code = 6151488) A Pos UNIT NUMBER (test code = [id number] 934-0) Status (test code = 9316466) [place]_TIMEINCHART Blood Bank Product (test code PLATELETS = 2263) PRODUCT CODE (test code = L3707P09 933-2) [facility] [id number] 23:54:00 Test Item Value Reference Range Interpretation Comments CROSSMATCH (test code = COMPATIBLE 2264) Unit ABO (test code = O Pos 9285704) UNIT NUMBER (test code = [id number] 934-0) Status (test code = RETURNED FROM ISSUE 15100613) Blood Bank Product (test RED BLOOD CELLS code = 2263) PRODUCT CODE (test code = K7545E43 933-2) [facility] [id number] 23:54:00 Test Item Value Reference Range Interpretation Comments CROSSMATCH (test code = COMPATIBLE 2264) Unit ABO (test code = O Pos 7330036) UNIT NUMBER (test code = [id number] 934-0) Status (test code = RETURNED FROM ISSUE 15100613) Blood Bank Product (test RED BLOOD CELLS code = 2263) PRODUCT CODE (test code = O4325E00 933-2) [facility] [id number] 23:54:00 Test Item Value Reference Range Interpretation Comments CROSSMATCH (test code = COMPATIBLE 2264) Unit ABO (test code = O Pos 2164567) UNIT NUMBER (test code = [id number] 934-0) Status (test code = RETURNED FROM ISSUE 15100613) Blood Bank Product (test RED BLOOD CELLS code = 2263) PRODUCT CODE (test code = R6893Z02 933-2) [facility] [id number] 23:54:00 Test Item Value Reference Range Interpretation Comments CROSSMATCH (test code = COMPATIBLE 2264) Unit ABO (test code = O Pos 7002250) UNIT NUMBER (test code = [id number] 934-0) Status (test code = RETURNED FROM ISSUE 15100613) Blood Bank Product (test RED BLOOD CELLS code = 2263) PRODUCT CODE (test code = V8360F44 933-2) [facility] [id number] 23:54:00 Test Item Value Reference Range Interpretation Comments CROSSMATCH (test code = COMPATIBLE 2264) Unit ABO (test code = O Pos 2958125) UNIT NUMBER (test code = [id number] 934-0) Status (test code = RETURNED FROM ISSUE 15100613) Blood Bank Product (test RED BLOOD CELLS code = 2263) PRODUCT CODE (test code = T8055J45 933-2) [facility] [id number] 23:54:00 Test Item Value Reference Range Interpretation Comments CROSSMATCH (test code = COMPATIBLE 2264) Unit ABO (test code = O Pos 1095101) UNIT NUMBER (test code = [id number] 934-0) Status (test code = RETURNED FROM ISSUE 15100613) Blood Bank Product (test RED BLOOD CELLS code = 2263) PRODUCT CODE (test code = R6049O42 933-2) [facility]2022-03-18 23:54:00 Test Item Value Reference Range Interpretation Comments CROSSMATCH (test code = COMPATIBLE 2264) Unit ABO (test code = O Pos 3536394) UNIT NUMBER (test code = S620431498984 934-0) Status (test code = RETURNED FROM ISSUE 15100613) Blood Bank Product (test RED BLOOD CELLS code = 2263) PRODUCT CODE (test code = S9412P84 933-2) [facility]2022-03-18 23:54:00 Test Item Value Reference Range Interpretation Comments CROSSMATCH (test code = COMPATIBLE 2264) Unit ABO (test code = O Pos 7313104) UNIT NUMBER (test code = P823010010253 934-0) Status (test code = RETURNED FROM ISSUE 15100613) Blood Bank Product (test RED BLOOD CELLS code = 2263) PRODUCT CODE (test code = I2705L77 933-2) [facility]2022-03-18 23:54:00 Test Item Value Reference Range Interpretation Comments CROSSMATCH (test code = COMPATIBLE 2264) Unit ABO (test code = O Pos 1712231) UNIT NUMBER (test code = W440927785820 934-0) Status (test code = RETURNED FROM ISSUE 15100613) Blood Bank Product (test RED BLOOD CELLS code = 2263) PRODUCT CODE (test code = C0390X61 933-2) [facility]2022-03-18 23:54:00 Test Item Value Reference Range Interpretation Comments CROSSMATCH (test code = COMPATIBLE 2264) Unit ABO (test code = O Pos 8923584) UNIT NUMBER (test code = [id number] 934-0) Status (test code = RETURNED FROM ISSUE 15100613) Blood Bank Product (test RED BLOOD CELLS code = 2263) PRODUCT CODE (test code = H4403W06 933-2) [facility] [id number] 23:54:00 Test Item Value Reference Range Interpretation Comments CROSSMATCH (test code = COMPATIBLE 2264) Unit ABO (test code = O Pos 9373146) UNIT NUMBER (test code = [id number] 934-0) Status (test code = RETURNED FROM ISSUE 15100613) Blood Bank Product (test RED BLOOD CELLS code = 2263) PRODUCT CODE (test code = M9216F55 933-2) [facility] [id number] 23:54:00 Test Item Value Reference Range Interpretation Comments CROSSMATCH (test code = COMPATIBLE 2264) Unit ABO (test code = O Pos 7594869) UNIT NUMBER (test code = [id number] 934-0) Status (test code = RETURNED FROM ISSUE 15100613) Blood Bank Product (test RED BLOOD CELLS code = 2263) PRODUCT CODE (test code = B5576T61 933-2) [facility] [id number] 22:04:29 Test Item Value Reference Range Interpretation [...] S NOT APPLICABLE FOR DIALYSIS PATIEN TS. Director Of Enterprise Architecture ID - [id number] 22:03:41 Test Item Value Reference Range Interpretation Comments PHOSPHORUS (BEAKER) (test code = 4.3 mg/dL 2.3-4.7 604) Director Of Enterprise Architecture ID - [id number] 22:03:40 Test Item Value Reference Range Interpretation Comments MAGNESIUM (BEAKER) (test code = 2.2 mg/dL 1.6-2.6 627) Director Of Enterprise Architecture ID - DBpH, ucggtyll8370-82-84 21:40:14 Test Item Value Reference Range Interpretation Comments pH, Arterial (test code = 2744-1) 7.37 7.35-7.45 Lab Interpretation (test code = Normal 37598-2) [facility]2022-03-18 21:40:14 Test Item Value Reference Range Interpretation Comments pH, Arterial (test code = 2744-1) 7.37 7.35-7.45 Lab Interpretation (test code = Normal 93478-4) [facility]2022-03-18 21:40:14 Test Item Value Reference Range Interpretation Comments pH, Arterial (test code = 2744-1) 7.37 7.35-7.45 Lab Interpretation (test code = Normal 39796-7) [facility]2022-03-18 21:40:14 Test Item Value Reference Range Interpretation Comments pH, Arterial (test code = 2744-1) 7.37 7.35-7.45 Lab Interpretation (test code = Normal 18720-3) [facility]2022-03-18 21:40:14 Test Item Value Reference Range Interpretation Comments pH, Arterial (test code = 2744-1) 7.37 7.35-7.45 Lab Interpretation (test code = Normal 40633-5) [facility]2022-03-18 21:40:14 Test Item Value Reference Range Interpretation Comments pH, Arterial (test code = 2744-1) 7.37 7.35-7.45 Lab Interpretation (test code = Normal 17083-3) [facility]2022-03-18 21:40:14 Test Item Value Reference Range Interpretation Comments pH, Arterial (test code = 2744-1) 7.37 7.35-7.45 Lab Interpretation (test code = Normal 41032-0) [facility] [id number] 21:40:14 Test Item Value Reference Range Interpretation Comments pH, Arterial (test code = 2744-1) 7.37 7.35-7.45 Lab Interpretation (test code = Normal 28147-5) [facility] [id number] 21:40:14 Test Item Value Reference Range Interpretation Comments pH, Arterial (test code = 2744-1) 7.37 7.35-7.45 Lab Interpretation (test code = Normal 76436-5) [facility] [id number] 21:40:14 Test Item Value Reference Range Interpretation Comments pH, Arterial (test code = 2744-1) 7.37 7.35-7.45 Lab Interpretation (test code = Normal 05430-7) [facility] [id number] 21:40:14 Test Item Value Reference Range Interpretation Comments pH, Arterial (test code = 2744-1) 7.37 7.35-7.45 Lab Interpretation (test code = Normal 13434-8) [facility] [id number] 21:40:14 Test Item Value Reference Range Interpretation Comments pH, Arterial (test code = 2744-1) 7.37 7.35-7.45 Lab Interpretation (test code = Normal 20524-0) [facility] [id number] 21:40:14 Test Item Value Reference Range Interpretation Comments PH ARTERIAL (BEAKER) (test code = 383) 7.37 7.35-7.45 POCT-GLUCOSE [id number] 18:07:04 Test Item Value Reference Range Interpretation Comments POC-GLUCOSE METER 208 mg/dL 70-110 H : TESTED A T [facility] (BEAKER) (test code = YUDY [place]ITE [place], 1538) 15451: Director Of Enterprise Architecture/Techni kelle ID = [id number] for Chilo Mccarty BLOOD GAS, [id number] 12:45:46 Test Item Value Reference Range Interpretation [...] (test code = 1819) 36.0 BLOOD GAS, [id number] 11:23:57 Test Item Value Reference Range Interpretation [...] FIO2 (BEAKER) (test code = 1819) 40.0 [id number] 09:37:11 Test Item Value Reference Range Interpretation Comments Scan Result (test code = See scanned report [id number]) BRANDI (test code = BRANDI) See scanned report [facility] 09:37:11 Test Item Value Reference Range Interpretation Comments Scan Result (test code = See scanned report [id number]) BRANDI (test code = BRANDI) See scanned report [facility] 09:37:11 Test Item Value Reference Range Interpretation Comments Scan Result (test code = See scanned report [id number]) BRANDI (test code = BRANDI) See scanned report [place] 07651022-03-18 09:37:11 Test Item Value Reference Range Interpretation Comments Scan Result (test code = See scanned report [id number]) BRANDI (test code = BRANDI) See scanned report [place] 07651022-03-18 09:37:11 Test Item Value Reference Range Interpretation Comments Scan Result (test code = See scanned report [id number]) BRANDI (test code = BRNADI) See scanned report [place] 07651022-03-18 09:37:11 Test Item Value Reference Range Interpretation Comments Scan Result (test code = See scanned report [id number]) BRANDI (test code = BRANDI) See scanned report [place] 07651022-03-18 09:37:11 Test Item Value Reference Range Interpretation Comments Scan Result (test code = See scanned report [id number]) BRANDI (test code = BRANDI) See scanned report [place] 07651022-03-18 09:37:11 Test Item Value Reference Range Interpretation Comments Scan Result (test code = See scanned report [id number]) BRANDI (test code = BRANDI) See scanned report [place] 07651022-03-18 09:37:11 Test Item Value Reference Range Interpretation Comments Scan Result (test code = See scanned report [id number]) BRANDI (test code = BRANDI) See scanned report [place] 07651022-03-18 09:37:11 Test Item Value Reference Range Interpretation Comments Scan Result (test code = See scanned report [id number]) BRANDI (test code = BRANDI) See scanned report [place] 670932-03-18 09:37:11 Test Item Value Reference Range Interpretation Comments Scan Result (test code = See scanned report [id number]) BRANDI (test code = BRANDI) See scanned report [place] 670932-03-18 09:37:11 Test Item Value Reference Range Interpretation Comments Scan Result (test code = See scanned report [id number]) BRANDI (test code = BRANDI) See scanned report [facility] [id number] 09:37:11 Test Item Value Reference Range Interpretation Comments SCAN RESULT (test code = See scanned report [id number]) See scanned reportPOCT-GLUCOSE [id number] 08:52:16 Test Item Value Reference Range Interpretation Comments POC-GLUCOSE METER 165 mg/dL 70-110 H : TESTED A T [facility] (BEAKER) (test code = YUDY [place], 1538) 60789: Director Of Enterprise Architecture/Techni kelle ID = [id number] for Chilo Mccarty RAD, CHEST, 1 VIEW, NON [id number] 04:10:00Reason for exam:->post-opShould this be performed at the bedside?->Yes [facility] 1955 Sex: FFINAL REPORT RAD, CHEST, 1 VIEW, NON DEPT INDICATION: post-op COMPARISON: Prior day's exam FINDINGS: Portable frontal view of the chest. IMPRESSION: Support Lines: Stable Lungs and pleura: Unchanged central venous congestion. No new consolidation or effusion. No pneumothorax. Heart and mediastinum: Stable contours. Additional findings: None. Signed: nAdrew [facility] Date/Time: 06/19/2021 04:10:04 BASIC METABOLIC [id number] 03:27:20 Test Item Value Reference Range Interpretation [...] S NOT APPLICABLE FOR DIALYSIS PATIEN TS. Director Of Enterprise Architecture ID - RAKAN [id number] 03:26:39 Test Item Value Reference Range Interpretation Comments MAGNESIUM (BEAKER) (test code = 2.4 mg/dL 1.6-2.6 627) Director Of Enterprise Architecture ID Bassam BLEDSOE [id number] 03:26:39 Test Item Value Reference Range Interpretation Comments PHOSPHORUS (BEAKER) (test code = 4.8 mg/dL 2.3-4.7 H 604) Director Of Enterprise Architecture ID Bassam BLEDSOE [id number] 03:02:29 Test Item Value Reference Range Interpretation Comments PARTIAL THROMBOPLASTIN TIME 35.4 seconds 22.5-36.0 (BEAKER) (test code = 760) PROTHROMBIN TIME/[id number] 03:01:50 Test Item Value Reference Range Interpretation Comments PROTIME (BEAKER) 16.0 seconds 11.9-14.2 H (test code = 759) INR (BEAKER) (test 1.31 See_Comment [Automat ed message] code = 370) The system AwoX generated this result transmitted ref erence range: [...] 0-0 (test code = 413) OXYGEN SATURATION, [id number] 02:28:43 Test Item Value Reference Range Interpretation Comments O2 SATURATION (MEASURED) (BEAKER) 79.3 % (test code = 1455) BLOOD GAS, [id number] 02:25:53 Test Item Value Reference Range Interpretation [...] (BEAKER) (test code = 1819) 40.0 POCT-GLUCOSE [id number] 00:06:42 Test Item Value Reference Range Interpretation Comments POC-GLUCOSE METER 88 mg/dL 70-110 : TESTED A T [facility] 6720 (BEAKER) (test code = [facility], 1538) [address]87[address]: Director Of Enterprise Architecture/Techni kelle ID = [id number] for JUGU ILON (V), ERICK POCT-GLUCOSE [id number] 23:14:53 Test Item Value Reference Range Interpretation Comments POC-GLUCOSE METER 91 mg/dL 70-110 : TESTED A T [facility] 6720 (BEAKER) (test code = [facility], 1538) 26047: Director Of Enterprise Architecture/Techni kelle ID = [id number] for JUGU ILON (V), ERICK POCT-GLUCOSE [id number] 21:30:27 Test Item Value Reference Range Interpretation Comments POC-GLUCOSE METER 128 mg/dL 70-110 H : TESTED A T [facility] 6720 (BEAKER) (test code = [facility], [facility]8) 07497: Director Of Enterprise Architecture/Techni kelle ID = [id number] for JU GUILON (V), ERICK POCT-GLUCOSE [id number] 19:05:18 Test Item Value Reference Range Interpretation Comments POC-GLUCOSE METER 165 mg/dL 70-110 H : TESTED A T [facility] 6720 (BEAKER) (test code = [facility], [facility]8) 44389: Director Of Enterprise Architecture/Techni kelle ID = [id number] for JA ASHANTI, JESMI BASIC METABOLIC [id number] 18:47:16 Test Item Value Reference Range Interpretation [...] S NOT APPLICABLE FOR DIALYSIS PATIEN TS. Director Of Enterprise Architecture ID - HIEN [id number] 18:44:55 Test Item Value Reference Range Interpretation Comments MAGNESIUM (BEAKER) (test code = 2.5 mg/dL 1.6-2.6 627) Director Of Enterprise Architecture ID - HIEN [id number] 18:44:55 Test Item Value Reference Range Interpretation Comments PHOSPHORUS (BEAKER) (test code = 4.7 mg/dL 2.3-4.7 604) Director Of Enterprise Architecture ID - HIEN MBLOOD GAS, [id number] 18:43:01 Test Item Value Reference Range Interpretation [...] (test code = 1819) 60.0 OXYGEN SATURATION, [id number] 18:40:36 Test Item Value Reference Range Interpretation Comments O2 SATURATION (MEASURED) (BEAKER) 90.5 % (test code = 1455) Lactic Acid, [id number] 18:40:35 Test Item Value Reference Range Interpretation Comments Lactate, Art (test code = 2.1 mmol/L 0.5-2.2 2874) BRANDI (test code = BRANDI) Director Of Enterprise Architecture ID - HIEN M Lab Interpretation (test Normal code = 28645-1) [facility] [id number] 18:40:35 Test Item Value Reference Range Interpretation Comments Lactate, Art (test code = 2.1 mmol/L 0.5-2.2 2874) BRANDI (test code = BRANDI) Director Of Enterprise Architecture ID - HIEN Lab Interpretation (test Normal code = 87203-8) [facility], [id number] 18:40:35 Test Item Value Reference Range Interpretation Comments Lactate, Art (test code = 2.1 mmol/L 0.5-2.2 2874) BRANDI (test code = BRANDI) Director Of Enterprise Architecture ID - [facility] Lab Interpretation (test Normal code = 96990-8) [facility], [id number] 18:40:35 Test Item Value Reference Range Interpretation Comments Lactate, Art (test code = 2.1 mmol/L 0.5-2.2 2874) BRANDI (test code = BRANDI) Director Of Enterprise Architecture ID - [facility] Lab Interpretation (test Normal code = 02212-9) [facility], [id number] 18:40:35 Test Item Value Reference Range Interpretation Comments Lactate, Art (test code = 2.1 mmol/L 0.5-2.2 2874) BRANDI (test code = BRANDI) Director Of Enterprise Architecture ID - [facility] Lab Interpretation (test Normal code = 60548-5) [facility], [id number] 18:40:35 Test Item Value Reference Range Interpretation Comments Lactate, Art (test code = 2.1 mmol/L 0.5-2.2 2874) BRANDI (test code = BRANDI) Director Of Enterprise Architecture ID - [facility] Lab Interpretation (test Normal code = 92084-3) [facility], [id number] 18:40:35 Test Item Value Reference Range Interpretation Comments Lactate, Art (test code = 2.1 mmol/L 0.5-2.2 2874) BRANDI (test code = BRANDI) Director Of Enterprise Architecture ID - HIEN Lab Interpretation (test Normal code = 74285-2) [facility], [id number] 18:40:35 Test Item Value Reference Range Interpretation Comments Lactate, Art (test code = 2.1 mmol/L 0.5-2.2 2874) BRANDI (test code = BRANDI) Director Of Enterprise Architecture ID - HIEN M Lab Interpretation (test Normal code = 78366-8) [facility], [id number] 18:40:35 Test Item Value Reference Range Interpretation Comments Lactate, Art (test code = 2.1 mmol/L 0.5-2.2 2874) BRANDI (test code = BRANDI) Director Of Enterprise Architecture ID - HIEN M Lab Interpretation (test Normal code = 02108-2) [facility], [id number] 18:40:35 Test Item Value Reference Range Interpretation Comments Lactate, Art (test code = 2.1 mmol/L 0.5-2.2 2874) BRANDI (test code = BRANDI) Director Of Enterprise Architecture ID - HIEN M Lab Interpretation (test Normal code = 76802-9) [facility], [id number] 18:40:35 Test Item Value Reference Range Interpretation Comments Lactate, Art (test code = 2.1 mmol/L 0.5-2.2 2874) BRANDI (test code = BRANDI) Director Of Enterprise Architecture ID - HIEN Lab Interpretation (test Normal code = 57530-6) [facility], [id number] 18:40:35 Test Item Value Reference Range Interpretation Comments Lactate, Art (test code = 2.1 mmol/L 0.5-2.2 2874) BRANDI (test code = BRANDI) Director Of Enterprise Architecture ID - HIEN M Lab Interpretation (test Normal code = 59085-6) [facility] HospitalLACTIC ACID, [id number] 18:40:35 Test Item Value Reference Range Interpretation Comments LACTATE BLOOD ARTERIAL (2) 2.1 mmol/L 0.5-2.2 (BEAKER) (test code = 2874) Director Of Enterprise Architecture ID - HIEN [id number] 18:38:33 Test Item Value Reference Range Interpretation Comments PARTIAL THROMBOPLASTIN TIME 37.2 seconds 22.5-36.0 H (BEAKER) (test code = 760) PROTHROMBIN TIME/[id number] 18:37:33 Test Item Value Reference Range Interpretation Comments PROTIME (BEAKER) 16.6 seconds 11.9-14.2 H (test code = 759) INR (BEAKER) (test 1.37 See_Comment [Automat ed message] code = 370) The system AwoX generated this result transmitted ref erence range: [...] 0-0 (test code = 413) HGB/HCT (H&H)-Stat [id number] 16:13:19 Test Item Value Reference Range Interpretation Comments Hemoglobin (test code = 10.6 See_Comment L [Au tomated message] 786-4) The system AwoX generated this result transmitted ref erence range: 12.0 - 1 5.0 GM/DL. The refe rence range was not u sed to interpret this result as normal/abnor mal. Hematocrit (test code = 31.0 % 36.0-45.0 L 4544-3) Lab Interpretation (test Abnormal code = 74181-2) [facility] [id number] 16:13:19 Test Item Value Reference Range Interpretation Comments Hemoglobin (test code = 10.6 See_Comment L [Au tomated message] 786-4) The system AwoX generated this result transmitted ref erence range: 12.0 - 1 5.0 GM/DL. The refe rence range was not u sed to interpret this result as normal/abnor mal. Hematocrit (test code = 31.0 % 36.0-45.0 L 4544-3) Lab Interpretation (test Abnormal code = 60003-7) [facility] [id number] 16:13:19 Test Item Value Reference Range Interpretation Comments Hemoglobin (test code = 10.6 See_Comment L [Au tomated message] 786-4) The system AwoX generated this result transmitted ref erence range: 12.0 - 1 5.0 GM/DL. The refe rence range was not u sed to interpret this result as normal/abnor mal. Hematocrit (test code = 31.0 % 36.0-45.0 L 4544-3) Lab Interpretation (test Abnormal code = 20676-9) [facility]Stat [id number] 16:13:19 Test Item Value Reference Range Interpretation Comments Hemoglobin (test code = 10.6 See_Comment L [Au tomated message] 786-4) The system AwoX generated this result transmitted ref erence range: 12.0 - 1 5.0 GM/DL. The refe rence range was not u sed to interpret this result as normal/abnor mal. Hematocrit (test code = 31.0 % 36.0-45.0 L 4544-3) Lab Interpretation (test Abnormal code = 99306-8) [facility]Stat [id number] 16:13:19 Test Item Value Reference Range Interpretation Comments Hemoglobin (test code = 10.6 See_Comment L [Au tomated message] 786-4) The system AwoX generated this result transmitted ref erence range: 12.0 - 1 5.0 GM/DL. The refe rence range was not u sed to interpret this result as normal/abnor mal. Hematocrit (test code = 31.0 % 36.0-45.0 L 4544-3) Lab Interpretation (test Abnormal code = 76493-7) [facility]Stat [id number] 16:13:19 Test Item Value Reference Range Interpretation Comments Hemoglobin (test code = 10.6 See_Comment L [Au tomated message] 786-4) The system AwoX generated this result transmitted ref erence range: 12.0 - 1 5.0 GM/DL. The refe rence range was not u sed to interpret this result as normal/abnor mal. Hematocrit (test code = 31.0 % 36.0-45.0 L 4544-3) Lab Interpretation (test Abnormal code = 68579-3) [facility]Stat [id number] 16:13:19 Test Item Value Reference Range Interpretation Comments Hemoglobin (test code = 10.6 See_Comment L [Au tomated message] 786-4) The system AwoX generated this result transmitted ref erence range: 12.0 - 1 5.0 GM/DL. The refe rence range was not u sed to interpret this result as normal/abnor mal. Hematocrit (test code = 31.0 % 36.0-45.0 L 4544-3) Lab Interpretation (test Abnormal code = 10387-7) [facility]Stat [id number] 16:13:19 Test Item Value Reference Range Interpretation Comments Hemoglobin (test code = 10.6 See_Comment L [Au tomated message] 786-4) The system AwoX generated this result transmitted ref erence range: 12.0 - 1 5.0 GM/DL. The refe rence range was not u sed to interpret this result as normal/abnor mal. Hematocrit (test code = 31.0 % 36.0-45.0 L 4544-3) Lab Interpretation (test Abnormal code = 99597-9) [facility]Stat [id number] 16:13:19 Test Item Value Reference Range Interpretation Comments Hemoglobin (test code = 10.6 See_Comment L [Au tomated message] 786-4) The system AwoX generated this result transmitted ref erence range: 12.0 - 1 5.0 GM/DL. The refe rence range was not u sed to interpret this result as normal/abnor mal. Hematocrit (test code = 31.0 % 36.0-45.0 L 4544-3) Lab Interpretation (test Abnormal code = 92077-6) [facility]Stat [id number] 16:13:19 Test Item Value Reference Range Interpretation Comments Hemoglobin (test code = 10.6 See_Comment L [Au tomated message] 786-4) The system AwoX generated this result transmitted ref erence range: 12.0 - 1 5.0 GM/DL. The refe rence range was not u sed to interpret this result as normal/abnor mal. Hematocrit (test code = 31.0 % 36.0-45.0 L 4544-3) Lab Interpretation (test Abnormal code = 89953-9) [facility]Stat [id number] 16:13:19 Test Item Value Reference Range Interpretation Comments Hemoglobin (test code = 10.6 See_Comment L [Au tomated message] 786-4) The system AwoX generated this result transmitted ref erence range: 12.0 - 1 5.0 GM/DL. The refe rence range was not u sed to interpret this result as normal/abnor mal. Hematocrit (test code = 31.0 % 36.0-45.0 L 4544-3) Lab Interpretation (test Abnormal code = 85370-6) [facility]Stat [id number] 16:13:19 Test Item Value Reference Range Interpretation Comments Hemoglobin (test code = 10.6 See_Comment L [Au tomated message] 786-4) The system AwoX generated this result transmitted ref erence range: 12.0 - 1 5.0 GM/DL. The refe rence range was not u sed to interpret this result as normal/abnor mal. Hematocrit (test code = 31.0 % 36.0-45.0 L 4544-3) Lab Interpretation (test Abnormal code = 02991-7) [facility]) - STAT [id number] 16:13:19 Test Item Value Reference Range Interpretation Comments HEMOGLOBIN (BEAKER) (test code = 10.6 GM/DL 12.0-15.0 L 410) HEMATOCRIT (BEAKER) (test code = 31.0 % 36.0-45.0 L 411) Glucose-Stat [id number] 16:13:18 Test Item Value Reference Range Interpretation Comments Glucose (test code = 2345-7) 205 mg/dL 70-110 H Lab Interpretation (test code = Abnormal 56209-0) [facility] [id number] 16:13:18 Test Item Value Reference Range Interpretation Comments Sodium (test code = 2951-2) 134 meq/L 136-145 L Lab Interpretation (test code = Abnormal 65264-8) [facility]Glucose[facility] [id number] 16:13:18 Test Item Value Reference Range Interpretation Comments Glucose (test code = 2345-7) 205 mg/dL 70-110 H Lab Interpretation (test code = Abnormal 92283-7) [facility] [id number] 16:13:18 Test Item Value Reference Range Interpretation Comments Sodium (test code = 2951-2) 134 meq/L 136-145 L Lab Interpretation (test code = Abnormal 43103-1) [facility]Glucose[facility]Stat [id number] 16:13:18 Test Item Value Reference Range Interpretation Comments Glucose (test code = 2345-7) 205 mg/dL 70-110 H Lab Interpretation (test code = Abnormal 30373-4) [facility]Stat [id number] 16:13:18 Test Item Value Reference Range Interpretation Comments Sodium (test code = 2951-2) 134 meq/L 136-145 L Lab Interpretation (test code = Abnormal 02766-3) [facility]Glucose[facility]Stat [id number] 16:13:18 Test Item Value Reference Range Interpretation Comments Glucose (test code = 2345-7) 205 mg/dL 70-110 H Lab Interpretation (test code = Abnormal 41694-2) [facility] [id number] 16:13:18 Test Item Value Reference Range Interpretation Comments Sodium (test code = 2951-2) 134 meq/L 136-145 L Lab Interpretation (test code = Abnormal 29061-8) [facility]Glucose[facility]Stat [id number] 16:13:18 Test Item Value Reference Range Interpretation Comments Glucose (test code = 2345-7) 205 mg/dL 70-110 H Lab Interpretation (test code = Abnormal 81088-9) [facility]Stat [id number] 16:13:18 Test Item Value Reference Range Interpretation Comments Sodium (test code = 2951-2) 134 meq/L 136-145 L Lab Interpretation (test code = Abnormal 78257-3) [facility]Glucose[facility]Stat [id number] 16:13:18 Test Item Value Reference Range Interpretation Comments Glucose (test code = 2345-7) 205 mg/dL 70-110 H Lab Interpretation (test code = Abnormal 31359-4) [facility]Stat [id number] 16:13:18 Test Item Value Reference Range Interpretation Comments Sodium (test code = 2951-2) 134 meq/L 136-145 L Lab Interpretation (test code = Abnormal 06937-6) [facility]Glucose[facility]Stat [id number] 16:13:18 Test Item Value Reference Range Interpretation Comments Glucose (test code = 2345-7) 205 mg/dL 70-110 H Lab Interpretation (test code = Abnormal 64257-4) [facility]Stat [id number] 16:13:18 Test Item Value Reference Range Interpretation Comments Sodium (test code = 2951-2) 134 meq/L 136-145 L Lab Interpretation (test code = Abnormal 52645-6) [facility]Glucose[facility]Stat [id number] 16:13:18 Test Item Value Reference Range Interpretation Comments Glucose (test code = 2345-7) 205 mg/dL 70-110 H Lab Interpretation (test code = Abnormal 51724-5) [facility] [id number] 16:13:18 Test Item Value Reference Range Interpretation Comments Sodium (test code = 2951-2) 134 meq/L 136-145 L Lab Interpretation (test code = Abnormal 46341-5) [facility]Glucose[facility]Stat [id number] 16:13:18 Test Item Value Reference Range Interpretation Comments Glucose (test code = 2345-7) 205 mg/dL 70-110 H Lab Interpretation (test code = Abnormal 47622-3) [facility] [id number] 16:13:18 Test Item Value Reference Range Interpretation Comments Sodium (test code = 2951-2) 134 meq/L 136-145 L Lab Interpretation (test code = Abnormal 87327-4) [facility]Glucose[facility]Stat [id number] 16:13:18 Test Item Value Reference Range Interpretation Comments Glucose (test code = 2345-7) 205 mg/dL 70-110 H Lab Interpretation (test code = Abnormal 48509-4) [facility] [id number] 16:13:18 Test Item Value Reference Range Interpretation Comments Sodium (test code = 2951-2) 134 meq/L 136-145 L Lab Interpretation (test code = Abnormal 00145-1) [facility]Gl[facility] [id number] 16:13:18 Test Item Value Reference Range Interpretation Comments Glucose (test code = 2345-7) 205 mg/dL 70-110 H Lab Interpretation (test code = Abnormal 86320-8) [facility] [id number] 16:13:18 Test Item Value Reference Range Interpretation Comments Sodium (test code = 2951-2) 134 meq/L 136-145 L Lab Interpretation (test code = Abnormal 22702-3) [facility]Gl[facility] [id number] 16:13:18 Test Item Value Reference Range Interpretation Comments Glucose (test code = 2345-7) 205 mg/dL 70-110 H Lab Interpretation (test code = Abnormal 64772-0) [facility] [id number] 16:13:18 Test Item Value Reference Range Interpretation Comments Sodium (test code = 2951-2) 134 meq/L 136-145 L Lab Interpretation (test code = Abnormal 88952-8) [facility]OD[facility] NA-STAT [id number] 16:13:18 Test Item Value Reference Range Interpretation Comments SODIUM (BEAKER) (test code = 381) 134 meq/L 136-145 L GLUCOSE-STAT [id number] 16:13:18 Test Item Value Reference Range Interpretation Comments GLUCOSE RANDOM (BEAKER) (test code 205 mg/dL 70-110 H = 652) BLOOD GAS, [id number] 16:13:17 Test Item Value Reference Range Interpretation [...] (BEAKER) (test code = 1819) 60.0 Potassium-Stat [id number] 16:11:46 Test Item Value Reference Range Interpretation Comments Potassium (test code = 2823-3) 4.5 meq/L 3.6-5.5 Lab Interpretation (test code = Normal 48271-7) [facility] [id number] 16:11:46 Test Item Value Reference Range Interpretation Comments Potassium (test code = 2823-3) 4.5 meq/L 3.6-5.5 Lab Interpretation (test code = Normal 75289-7) [facility] [id number] 16:11:46 Test Item Value Reference Range Interpretation Comments Potassium (test code = 2823-3) 4.5 meq/L 3.6-5.5 Lab Interpretation (test code = Normal 80612-0) [facility] [id number] 16:11:46 Test Item Value Reference Range Interpretation Comments Potassium (test code = 2823-3) 4.5 meq/L 3.6-5.5 Lab Interpretation (test code = Normal 96559-7) [facility] [id number] 16:11:46 Test Item Value Reference Range Interpretation Comments Potassium (test code = 2823-3) 4.5 meq/L 3.6-5.5 Lab Interpretation (test code = Normal 46485-7) [facility] [id number] 16:11:46 Test Item Value Reference Range Interpretation Comments Potassium (test code = 2823-3) 4.5 meq/L 3.6-5.5 Lab Interpretation (test code = Normal 14343-3) [facility] [id number] 16:11:46 Test Item Value Reference Range Interpretation Comments Potassium (test code = 2823-3) 4.5 meq/L 3.6-5.5 Lab Interpretation (test code = Normal 67287-6) [facility] [id number] 16:11:46 Test Item Value Reference Range Interpretation Comments Potassium (test code = 2823-3) 4.5 meq/L 3.6-5.5 Lab Interpretation (test code = Normal 53866-9) [facility] [id number] 16:11:46 Test Item Value Reference Range Interpretation Comments Potassium (test code = 2823-3) 4.5 meq/L 3.6-5.5 Lab Interpretation (test code = Normal 41975-5) [facility] [id number] 16:11:46 Test Item Value Reference Range Interpretation Comments Potassium (test code = 2823-3) 4.5 meq/L 3.6-5.5 Lab Interpretation (test code = Normal 95770-5) [facility] [id number] 16:11:46 Test Item Value Reference Range Interpretation Comments Potassium (test code = 2823-3) 4.5 meq/L 3.6-5.5 Lab Interpretation (test code = Normal 30818-5) [facility] [id number] 16:11:46 Test Item Value Reference Range Interpretation Comments Potassium (test code = 2823-3) 4.5 meq/L 3.6-5.5 Lab Interpretation (test code = Normal 90629-6) [facility] HospitalPOTASSIUM-STAT [id number] 16:11:46 Test Item Value Reference Range Interpretation Comments POTASSIUM (BEAKER) (test code = 4.5 meq/L 3.6-5.5 379) CALCIUM, [id number] 16:11:08 Test Item Value Reference Range Interpretation Comments CALCIUM IONIZED (BEAKER) (test 1.16 mmol/L 1.12-1.27 code = 698) PH, BLOOD (BEAKER) (test code = 7.44 1810) Manual [id number] 16:00:23 Test Item Value Reference Range Interpretation [...] Poikilocytes (test code = 1+ few 966) [place] Cells (test code = 1+ few 474) Artifact (test code = Present 3432) Platelet Conc (test code Decreased = 3438) BRANDI (test code = BRANDI) Director Of Enterprise Architecture ID - Liza Lu comments: Slide comments: Lab Interpretation (test Abnormal code = 40473-9) [facility] [id number] 16:00:23 Test Item Value Reference Range Interpretation [...] Poikilocytes (test code = 1+ few 966) [place] Cells (test code = 1+ few 474) Artifact (test code = Present 3432) Platelet Conc (test code Decreased = 3438) BRANDI (test code = BRANDI) Director Of [employer] ID - Liza Lu comments: Slide comments: Lab Interpretation (test Abnormal code = 50155-2) [facility] Ybqkejdbzhox0698-04-13 16:00:23 Test Item Value Reference Range Interpretation [...] Poikilocytes (test code = 1+ few 966) [place] Cells (test code = 1+ few 474) Artifact (test code = Present 3432) Platelet Conc (test code Decreased = 3438) BRANDI (test code = BRANDI) Director Of [employer] ID - Liza Lu comments: Slide comments: Lab Interpretation (test Abnormal code = 96315-4) [facility] [id number] 16:00:23 Test Item Value Reference Range Interpretation [...] Poikilocytes (test code = 1+ few 966) [place] [facility] (test code = 1+ few 474) Artifact (test code = Present 3432) Platelet Conc (test code Decreased = 3438) BRANDI (test code = BRANDI) Director Of Enterprise Architecture ID - Liza Lu comments: Slide comments: Lab Interpretation (test Abnormal code = 04616-7) [facility] Amlrkvaqohwc3946-26-93 16:00:23 Test Item Value Reference Range Interpretation [...] Poikilocytes (test code = 1+ few 966) [place] [facility] (test code = 1+ few 474) Artifact (test code = Present 3432) Platelet Conc (test code Decreased = 3438) BRANDI (test code = BRANDI) Director Of Enterprise Architecture ID - Liza Lu comments: Slide comments: Lab Interpretation (test Abnormal code = 59107-0) [facility] Owtujzwwkwok5517-66-81 16:00:23 Test Item Value Reference Range Interpretation [...] Poikilocytes (test code = 1+ few 966) [place] [facility] (test code = 1+ few 474) Artifact (test code = Present 3432) Platelet Conc (test code Decreased = 3438) BRANDI (test code = BRANDI) Director Of Enterprise Architecture ID - Liza Lu comments: Slide comments: Lab Interpretation (test Abnormal code = 60003-4) [facility] Eeyrzirwupmb9325-16-67 16:00:23 Test Item Value Reference Range Interpretation [...] = 3438) BRANDI (test code = BRANDI) Director Of Enterprise Architecture ID - Liza Lu comments: Slide comments: Lab Interpretation (test Abnormal code = 19815-3) [facility] Nqpnkeexqopz2027-31-17 16:00:23 Test Item Value Reference Range Interpretation [...] Poikilocytes (test code = 1+ few 966) [place] [facility] (test code = 1+ few 474) Artifact (test code = Present 3432) Platelet Conc (test code Decreased = 3438) BRADNI (test code = BRANDI) Director Of Enterprise Architecture ID - Liza Lu comments: Slide comments: Lab Interpretation (test Abnormal code = 08354-3) [facility] Ycnctdtmtxkc6171-15-40 16:00:23 Test Item Value Reference Range Interpretation [...] Poikilocytes (test code = 1+ few 966) [place] [facility] (test code = 1+ few 474) Artifact (test code = Present 3432) Platelet Conc (test code Decreased = 3438) BRANDI (test code = BRANDI) Director Of Enterprise Architecture ID - Liza Lu comments: Slide comments: Lab Interpretation (test Abnormal code = 51828-6) [facility] Bzainurbyrex8518-65-35 16:00:23 Test Item Value Reference Range Interpretation [...] = 3438) BRANDI (test code = BRANDI) Director Of Enterprise Architecture ID - Liza Lu comments: Slide comments: Lab Interpretation (test Abnormal code = 85687-1) [facility] Uufnkpzdfoqc7072-12-95 16:00:23 Test Item Value Reference Range Interpretation [...] Poikilocytes (test code = 1+ few 966) [place] [facility] (test code = 1+ few 474) Artifact (test code = Present 3432) Platelet Conc (test code Decreased = 3438) BRANDI (test code = BRANDI) Director Of Enterprise Architecture ID - Liza Lu comments: Slide comments: Lab Interpretation (test Abnormal code = 42361-9) [facility] Plmjgricecjg0425-36-66 16:00:23 Test Item Value Reference Range Interpretation [...] Poikilocytes (test code = 1+ few 966) [place] [facility] (test code = 1+ few 474) Artifact (test code = Present 3432) Platelet Conc (test code Decreased = 3438) BRANDI (test code = BRANDI) Director Of Enterprise Architecture ID - Liza Lu comments: Slide comments: Lab Interpretation (test Abnormal code = 86689-4) [facility](CELLAVISION MANUAL DIFF)2021-06-18 16:00:23 Test Item Value Reference [...] CONCENTRATION Decreased (CELLAVISION)(BEAKER) (test code = 3438) Director Of Enterprise Architecture ID - Liza Lu comments: Slide comments:RAD, CHEST, 1 VIEW, NON HHQK6771-20-51 15:58:00Reason for exam:->Post-opShould this be performed at the bedside?->Yes [facility] 1955 Sex: FFINAL REPORT CHEST AP PORTABLE COMPARISON STUDY: 06/10/2021 History provided: Postop evaluation ET tube in place with tip midway between clavicles and marlon. NG tip in the stomach. Right jugular Weatherford-Blayne catheter with tip in the right main pulmonary artery. Chest tubes with no pneumothorax. Mild right basilar atelectasis with trace right pleural effusion. Lungs otherwise grossly clear and vascularity normal. Signed: Wero Alvarez MDReport Verified Date/Time: 06/18/2021 15:58:54 Reading Location: [facility] Diagnostic Imaging Reading Room - [facility] 1.310.12 C METABOLIC NQPJJ3989-03-25 15:57:50 Test Item Value Reference Range Interpretation [...] S NOT APPLICABLE FOR DIALYSIS PATIEN TS. Director Of Enterprise Architecture ID - HIEN KFrlpldhzp-KPSJ1550-11-17 15:57:19 Test Item Value Reference Range Interpretation Comments Potassium (test code = 2823-3) 4.8 meq/L 3.5-5.1 Lab Interpretation (test code = Normal 96761-5) [facility] 15:57:19 Test Item Value Reference Range Interpretation Comments Potassium (test code = 2823-3) 4.8 meq/L 3.5-5.1 Lab Interpretation (test code = Normal 78871-9) [facility]TT[facility]68[facility] 15:57:19 Test Item Value Reference Range Interpretation Comments Potassium (test code = 2823-3) 4.8 meq/L 3.5-5.1 Lab Interpretation (test code = Normal 73351-7) [facility]XJG0144-43-55 15:57:19 Test Item Value Reference Range Interpretation Comments Potassium (test code = 2823-3) 4.8 meq/L 3.5-5.1 Lab Interpretation (test code = Normal 71057-0) [facility]JZVD8549-19-52 15:57:19 Test Item Value Reference Range Interpretation Comments Potassium (test code = 2823-3) 4.8 meq/L 3.5-5.1 Lab Interpretation (test code = Normal 63697-3) [facility]GRO9101-[facility]-40 15:57:19 Test Item Value Reference Range Interpretation Comments Potassium (test code = 2823-3) 4.8 meq/L 3.5-5.1 Lab Interpretation (test code = Normal 80153-1) [facility]SDY1500-31-14 15:57:19 Test Item Value Reference Range Interpretation Comments Potassium (test code = 2823-3) 4.8 meq/L 3.5-5.1 Lab Interpretation (test code = Normal 11963-6) [facility]AGDK5638-27-45 15:57:19 Test Item Value Reference Range Interpretation Comments Potassium (test code = 2823-3) 4.8 meq/L 3.5-5.1 Lab Interpretation (test code = Normal 24399-9) [facility]GDOS[facility]78-30-54 15:57:19 Test Item Value Reference Range Interpretation Comments Potassium (test code = 2823-3) 4.8 meq/L 3.5-5.1 Lab Interpretation (test code = Normal 57788-4) [facility] 15:57:19 Test Item Value Reference Range Interpretation Comments Potassium (test code = 2823-3) 4.8 meq/L 3.5-5.1 Lab Interpretation (test code = Normal 65155-5) [facility]BCQ8044-04-73 15:57:19 Test Item Value Reference Range Interpretation Comments Potassium (test code = 2823-3) 4.8 meq/L 3.5-5.1 Lab Interpretation (test code = Normal 12667-4) [facility]GKS2917-27-83 15:57:19 Test Item Value Reference Range Interpretation Comments Potassium (test code = 2823-3) 4.8 meq/L 3.5-5.1 Lab Interpretation (test code = Normal 58699-0) [facility]2022[facility] 15:57:19 Test Item Value Reference Range Interpretation Comments POTASSIUM (BEAKER) (test code = 4.8 meq/L 3.5-5.1 379) UMHCVMZMWY1173-26-30 15:57:19 Test Item Value Reference Range Interpretation Comments PHOSPHORUS (BEAKER) (test code = 4.9 mg/dL 2.3-4.7 H 604) Director Of Enterprise Architecture ID - HIEN LWTSKKREJP5117-68-54 15:57:18 Test Item Value Reference Range Interpretation Comments MAGNESIUM (BEAKER) (test code = 2.6 mg/dL 1.6-2.6 627) Director Of Enterprise Architecture ID - HIEN MPrepare ldkrxy6172-77-12 15:44:00 Test Item Value Reference Range Interpretation Comments Unit ABO (test code = O Neg 1638134) UNIT NUMBER (test code = [id number] 934-0) Status (test code = RETURNED FROM ISSUE 9343776) Blood Bank Product (test FFP code = 2263) PRODUCT CODE (test code = L5604C41 933-2) [facility] okespp5909-65-89 15:44:00 Test Item Value Reference Range Interpretation Comments Unit ABO (test code = O Neg 9051702) UNIT NUMBER (test code = [id number] 934-0) Status (test code = RETURNED FROM ISSUE 6084304) Blood Bank Product (test FFP code = 2263) PRODUCT CODE (test code = N0613X69 933-2) [facility] faakol8401-88-19 15:44:00 Test Item Value Reference Range Interpretation Comments Unit ABO (test code = O Neg 1365966) UNIT NUMBER (test code = [id number] 934-0) Status (test code = RETURNED FROM ISSUE 2664318) Blood Bank Product (test FFP code = 2263) PRODUCT CODE (test code = P7961M55 933-2) [facility] hjfysh5814-85-67 15:44:00 Test Item Value Reference Range Interpretation Comments Unit ABO (test code = O Neg 9225254) UNIT NUMBER (test code = [id number] 934-0) Status (test code = RETURNED FROM ISSUE 4691632) Blood Bank Product (test FFP code = 2263) PRODUCT CODE (test code = C7537P57 933-2) [facility] sexfcz1683-48-34 15:44:00 Test Item Value Reference Range Interpretation Comments Unit ABO (test code = O Neg 5515226) UNIT NUMBER (test code = S610677187298 934-0) Status (test code = RETURNED FROM ISSUE 8393777) Blood Bank Product (test FFP code = 2263) PRODUCT CODE (test code = V7700Z84 933-2) [facility] jolqfm8481-61-56 15:44:00 Test Item Value Reference Range Interpretation Comments Unit ABO (test code = O Neg 0755326) UNIT NUMBER (test code = W301996685366 934-0) Status (test code = RETURNED FROM ISSUE 5978170) Blood Bank Product (test FFP code = 2263) PRODUCT CODE (test code = U3407H13 933-2) [facility] adfjpz7676-38-73 15:44:00 Test Item Value Reference Range Interpretation Comments Unit ABO (test code = O Neg 1009862) UNIT NUMBER (test code = [id number] 934-0) Status (test code = RETURNED FROM ISSUE 4270025) Blood Bank Product (test FFP code = 2263) PRODUCT CODE (test code = Z1269J25 933-2) [facility] xzlcqo7871-12-13 15:44:00 Test Item Value Reference Range Interpretation Comments Unit ABO (test code = O Neg 8143358) UNIT NUMBER (test code = J399868147568 934-0) Status (test code = RETURNED FROM ISSUE 4002997) Blood Bank Product (test FFP code = 2263) PRODUCT CODE (test code = A1803V19 933-2) [facility] ahkynf1716-71-90 15:44:00 Test Item Value Reference Range Interpretation Comments Unit ABO (test code = O Neg 7976309) UNIT NUMBER (test code = Q892193957261 934-0) Status (test code = RETURNED FROM ISSUE 2841834) Blood Bank Product (test FFP code = 2263) PRODUCT CODE (test code = X2639U95 933-2) [facility] hlatei4525-95-98 15:44:00 Test Item Value Reference Range Interpretation Comments Unit ABO (test code = O Neg 4076740) UNIT NUMBER (test code = Y712131235583 934-0) Status (test code = RETURNED FROM ISSUE 8973887) Blood Bank Product (test FFP code = 2263) PRODUCT CODE (test code = F3127W58 933-2) [facility] uyawfe6374-97-82 15:44:00 Test Item Value Reference Range Interpretation Comments Unit ABO (test code = O Neg 8172041) UNIT NUMBER (test code = [id number] 934-0) Status (test code = RETURNED FROM ISSUE 4451855) Blood Bank Product (test FFP code = 2263) PRODUCT CODE (test code = H6088V00 933-2) [facility] awkbwj1231-49-19 15:44:00 Test Item Value Reference Range Interpretation Comments Unit ABO (test code = O Neg 9844529) UNIT NUMBER (test code = Q795647287756 934-0) Status (test code = RETURNED FROM ISSUE 6864105) Blood Bank Product (test FFP code = 2263) PRODUCT CODE (test code = J9762A13 933-2) [facility] 15:32:33 Test Item Value Reference Range Interpretation Comments PARTIAL THROMBOPLASTIN TIME 37.6 seconds 22.5-36.0 H (BEAKER) (test code = 760) PROTHROMBIN TIME/RSQ0234-34-30 15:31:52 Test Item Value Reference Range Interpretation Comments PROTIME (BEAKER) 17.9 seconds 11.9-14.2 H (test code = 759) INR (BEAKER) (test 1.50 See_Comment [Automat ed message] code = 370) The system Awo[employer] generated this result transmitted ref erence range: <=5.90. The reference range was not used to int erpret this result as normal/abnormal . RECOMMENDED COUMADIN/WARFARIN INR THERAPY RANGESSTANDARD DOSE: 2.0 - 3.0 Includes: PROPHYLAXIS for venous thrombosis, systemic embolization; TREATMENT for venous thrombosis and/or pulmonary embolus.HIGH RISK: Target INR is 2.5-3.5 for patients with mechanical heart valves.CBC with platelet count + automated meau4471-66-91 15:24:09 Test Item Value Reference Range Interpretation Comments WBC (test code = 6690-2) 16.2 See_Comment H [A utomated message] The system Awo[employer] generated this result transmitted ref erence range: 3.5 - 10 .5 K/L. The refe rence range was not u sed to interpret this result as normal/abnor mal. RBC (test code = 789-8) 3.33 See_Comment L [Au tomated message] The system [employer] generated this result transmitted ref erence range: 3.93 - 5 .22 M/L. The refe rence range was not u sed to interpret this result as normal/abnor mal. MCHC (test code = 786-4) 31.8 See_Comment L [A utomated message] The system [employer] generated this result transmitted ref erence range: [...] L [Aut omated message] 777-3) The system [employer] generated this result transmitted ref erence range: 150 - 45 0 K/CU MM. The referen ce range was not u sed to interpret this result as normal/abnor mal. MPV (test code = 10.3 fL 9.4-12.3 19503-4) nRBC (test code = 413) 0 See_Comment [Aut omated message] The system [employer] generated this result transmitted ref erence range: 0 - 0 /1 00 WBC. The refere nce range was not u sed to interpret this result as normal/abnor mal. Lab Interpretation (test Abnormal code = 46056-2) [facility] with platelet count + automated nkwr0848-37-44 15:24:09 Test Item Value Reference Range Interpretation Comments WBC (test code = 6690-2) 16.2 See_Comment H [A utomated message] The system Awo[employer] generated this result transmitted ref erence range: 3.5 - 10 .5 K/L. The refe rence range was not u sed to interpret this result as normal/abnor mal. RBC (test code = 789-8) 3.33 See_Comment L [Au tomated message] The system A[employer] generated this result transmitted ref erence range: 3.93 - 5 .22 M/L. The refe rence range was not u sed to interpret this result as normal/abnor mal. MCHC (test code = 786-4) 31.8 See_Comment L [A utomated message] The system A[employer] generated this result transmitted ref erence range: [...] L [Aut omated message] 777-3) The system [employer] generated this result transmitted ref erence range: 150 - 45 0 K/CU MM. The referen ce range was not u sed to interpret this result as normal/abnor mal. MPV (test code = 10.3 fL 9.4-12.3 85041-1) nRBC (test code = 413) 0 See_Comment [Aut omated message] The system [employer] generated this result transmitted ref erence range: 0 - 0 /1 00 WBC. The refere nce range was not u sed to interpret this result as normal/abnor mal. Lab Interpretation (test Abnormal code = 97634-6) [facility] W/PLT COUNT & AUTO AIAPZKFSNQNU9139-39-79 15:24:09 Test Item Value Reference Range Interpretation [...] (BEAKER) (test code = 413) Hemoglobin and jgcjogkedx3947-31-71 15:23:11 Test Item Value Reference Range Interpretation Comments Hemoglobin (test code = 10.0 See_Comment L [Au tomated message] 786-4) The system [employer] generated this result transmitted ref erence range: 11.2 - 1 5.7 GM/DL. The refe rence range was not u sed to interpret this result as normal/abnor mal. Hematocrit (test code = 31.4 % 34.1-44.9 L 4544-3) Lab Interpretation (test Abnormal code = 60252-2) [facility]MOGLOBIN AND SFABDUSASI0149-77-26 15:23:11 Test Item Value Reference Range Interpretation Comments HEMOGLOBIN (BEAKER) (test code = 10.0 GM/DL 11.2-15.7 L 410) HEMATOCRIT (BEAKER) (test code = 31.4 % 34.1-44.9 L 411) BLOOD GAS, GTTOXGNY7047-15-11 15:19:54 Test Item Value Reference Range Interpretation [...] = 1819) 75.0 HGB/HCT (H&H) - STAT [id number] 15:19:53 Test Item Value Reference Range Interpretation Comments HEMOGLOBIN (BEAKER) (test code = 10.6 GM/DL 12.0-15.0 L 410) HEMATOCRIT (BEAKER) (test code = 31.0 % 36.0-45.0 L 411) GLUCOSE-STAT [id number] 15:19:46 Test Item Value Reference Range Interpretation Comments GLUCOSE RANDOM (BEAKER) (test code 200 mg/dL 70-110 H = 652) OXYGEN SATURATION, [id number] 15:18:32 Test Item Value Reference Range Interpretation Comments O2 SATURATION (MEASURED) (BEAKER) 83.4 % (test code = 1455) POTASSIUM-STAT [id number] 15:18:10 Test Item Value Reference Range Interpretation Comments POTASSIUM (BEAKER) (test code = 4.5 meq/L 3.6-5.5 379) SODIUM NA-STAT [id number] 15:18:09 Test Item Value Reference Range Interpretation Comments SODIUM (BEAKER) (test code = 381) 136 meq/L 136-145 CALCIUM, [id number] 15:18:08 Test Item Value Reference Range Interpretation Comments CALCIUM IONIZED (BEAKER) (test 1.14 mmol/L 1.12-1.27 code = 698) PH, BLOOD (BEAKER) (test code = 7.39 1810) POC ACTIVATED CLOTTING [id number] 14:20:47 Test Item Value Reference Range Interpretation Comments Activated Clotting Time 130 sec : 74 -137 seconds, (test code = 441) Baseline: TESTED AT [address], [address]: Director Of Enterprise Architecture/Techni kelle ID = [id number] for Me ndoza, Rocky [facility] ACTIVATED CLOTTING [id number] 14:20:47 Test Item Value Reference Range Interpretation Comments Activated Clotting Time 130 sec : 74 -137 seconds, (test code = 441) Baseline: TESTED AT [address], [address]: Director Of Enterprise Architecture/Techni kelle ID = [id number] for Me ndoza, Rocky [facility] ACTIVATED CLOTTING [id number] 14:20:47 Test Item Value Reference Range Interpretation Comments Activated Clotting Time 130 sec : 74 -137 seconds, (test code = 441) Baseline: TESTED AT [address], [address]: Director Of Enterprise Architecture/Techni kelle ID = [id number] for Me ndoza, Rocky [facility] ACTIVATED CLOTTING [id number] 14:20:47 Test Item Value Reference Range Interpretation Comments Activated Clotting Time 130 sec : 74 -137 seconds, (test code = 441) Baseline: TESTED AT [address], [address]: Director Of Enterprise Architecture/Techni kelle ID = [id number] for Me ndoza, Rocky CONTRERAS [facility] ACTIVATED CLOTTING [id number] 14:20:47 Test Item Value Reference Range Interpretation Comments Activated Clotting Time 130 sec : 74 -137 seconds, (test code = 441) Baseline: TESTED AT [address], [address]: Director Of Enterprise Architecture/Techni kelle ID = [id number] for Me ndoza, Rocky [facility] ACTIVATED CLOTTING [id number] 14:20:47 Test Item Value Reference Range Interpretation Comments Activated Clotting Time 130 sec : 74 -137 seconds, (test code = 441) Baseline: TESTED AT [address], [address]: Director Of Enterprise Architecture/Techni kelle ID = [id number] for Me ndoza, Rocky [facility] ACTIVATED CLOTTING [id number] 14:20:47 Test Item Value Reference Range Interpretation Comments Activated Clotting Time 130 sec : 74 -137 seconds, (test code = 441) Baseline: TESTED AT [address], [address]: Director Of Enterprise Architecture/Techni kelle ID = [id number] for Me ndoza, Rocky [facility] ACTIVATED CLOTTING [id number] 14:20:47 Test Item Value Reference Range Interpretation Comments Activated Clotting Time 130 sec : 74 -137 seconds, (test code = 441) Baseline: TESTED AT [address], [address]: Director Of Enterprise Architecture/Techni kelle ID = [id number] for Me ndoza, Rocky CONTRERAS [facility] ACTIVATED CLOTTING [id number] 14:20:47 Test Item Value Reference Range Interpretation Comments Activated Clotting Time 130 sec : 74 -137 seconds, (test code = 441) Baseline: TESTED AT [address], [address]: Director Of Enterprise Architecture/Techni kelle ID = [id number] for Me ndoza, Rocky CONTRERAS [facility] ACTIVATED CLOTTING [id number] 14:20:47 Test Item Value Reference Range Interpretation Comments Activated Clotting Time 130 sec : 74 -137 seconds, (test code = 441) Baseline: TESTED AT [address], [address]: Director Of Enterprise Architecture/Techni kelle ID = [id number] for Me goldmana, Rocky CONTRERAS [facility] ACTIVATED CLOTTING [id number] 14:20:47 Test Item Value Reference Range Interpretation Comments Activated Clotting Time 130 sec : 74 -137 seconds, (test code = 441) Baseline: TESTED AT [address], [address]: Director Of Enterprise Architecture/Techni kelle ID = [id number] for Me sanchezoza, Rocky CONTRERAS [facility] ACTIVATED CLOTTING [id number] 14:20:47 Test Item Value Reference Range Interpretation Comments Activated Clotting Time 130 sec : 74 -137 seconds, (test code = 441) Baseline: TESTED AT [address], [facility] 30: Director Of Enterprise Architecture/Techni kelle ID = [id number] for Me goldmana, Rocky [facility]AS [facility]PO[facility]-HOC9122-88-74 14:20:47 Test Item Value Reference Range Interpretation Comments ACTIVATED CLOTTING TIME 130 sec : 74 -137 seconds, (BEAKER) (test code = Baseli ne: TESTED AT 441) [address], [address]: Director Of Enterprise Architecture/Techni kelle ID = [id number] for Me sanchezoza, Rocky [id number]-[id number] 14:20:46 Test Item Value Reference Range Interpretation Comments ACTIVATED CLOTTING TIME 577 sec : 74 -137 seconds, (BEAKER) (test code = Baseli ne: TESTED AT 441) [address], [address]: Director Of Enterprise Architecture/Techni kelle ID = [id number] for ndoza, Rocky NITC-[id number] 14:20:45 Test Item Value Reference Range Interpretation Comments ACTIVATED CLOTTING TIME 743 sec : 74 -137 seconds, (BEAKER) (test code = Baseli ne: TESTED AT 441) [address], [facility] 30: Director Of Enterprise Architecture/Techni kelle ID = [id number] for ndoza, Rocky OQVH-[id number] 14:20:45 Test Item Value Reference Range Interpretation Comments ACTIVATED CLOTTING TIME 618 sec : 74 -137 seconds, (BEAKER) (test code = Baseli ne: TESTED AT 441) [facility] [address] [place] [address], [address]: Director Of Enterprise Architecture/Techni kelle ID = [id number] for Rocky Danielle BPWT-[id number] 14:20:44 Test Item Value Reference Range Interpretation Comments ACTIVATED CLOTTING TIME 547 sec : 74 -137 seconds, (BEAKER) (test code = Baseli ne: TESTED AT 441) [address], [address]: Director Of Enterprise Architecture/Techni kelle ID = [id number] for Rocky Danielle TDUA-[id number] 14:20:12 Test Item Value Reference Range Interpretation Comments ACTIVATED CLOTTING TIME 809 sec : 74 -137 seconds, (BEAKER) (test code = Baseli ne: TESTED AT 441) [address], [address]: Director Of Enterprise Architecture/Techni kelle ID = [id number] for Rocky Danielle [id number] 13:49:05 Test Item Value Reference Range Interpretation Comments PARTIAL THROMBOPLASTIN TIME 38.3 seconds 22.5-36.0 H (BEAKER) (test code = 760) Xqpijiaibb8254-27-19 13:48:43 Test Item Value Reference Range Interpretation Comments Fibrinogen (test code = 3255-7) 246 mg/dl 225-434 Lab Interpretation (test code = Normal 98692-1) [facility] 13:48:43 Test Item Value Reference Range Interpretation Comments Fibrinogen (test code = 3255-7) 246 mg/dl 225-434 Lab Interpretation (test code = Normal 80688-5) [facility] 13:48:43 Test Item Value Reference Range Interpretation Comments Fibrinogen (test code = 3255-7) 246 mg/dl 225-434 Lab Interpretation (test code = Normal 28456-1) [facility] 13:48:43 Test Item Value Reference Range Interpretation Comments Fibrinogen (test code = 3255-7) 246 mg/dl 225-434 Lab Interpretation (test code = Normal 49504-5) [facility] 13:48:43 Test Item Value Reference Range Interpretation Comments Fibrinogen (test code = 3255-7) 246 mg/dl 225-434 Lab Interpretation (test code = Normal 74021-0) [facility]2022-03-17 13:48:43 Test Item Value Reference Range Interpretation Comments Fibrinogen (test code = 3255-7) 246 mg/dl 225-434 Lab Interpretation (test code = Normal 25147-9) [facility]2022-03-17 13:48:43 Test Item Value Reference Range Interpretation Comments Fibrinogen (test code = 3255-7) 246 mg/dl 225-434 Lab Interpretation (test code = Normal 36511-7) [facility]2022-03-17 13:48:43 Test Item Value Reference Range Interpretation Comments Fibrinogen (test code = 3255-7) 246 mg/dl 225-434 Lab Interpretation (test code = Normal 44967-6) [facility]2022-03-17 13:48:43 Test Item Value Reference Range Interpretation Comments Fibrinogen (test code = 3255-7) 246 mg/dl 225-434 Lab Interpretation (test code = Normal 05898-4) [facility]2022-03-17 13:48:43 Test Item Value Reference Range Interpretation Comments Fibrinogen (test code = 3255-7) 246 mg/dl 225-434 Lab Interpretation (test code = Normal 22882-0) [facility]2022-03-17 13:48:43 Test Item Value Reference Range Interpretation Comments Fibrinogen (test code = 3255-7) 246 mg/dl 225-434 Lab Interpretation (test code = Normal 20514-6) [facility]2022-03-17 13:48:43 Test Item Value Reference Range Interpretation Comments Fibrinogen (test code = 3255-7) 246 mg/dl 225-434 Lab Interpretation (test code = Normal 91644-4) [facility]2022-03-17 13:48:43 Test Item Value Reference Range Interpretation Comments FIBRINOGEN LEVEL (BEAKER) (test 246 mg/dl 225-434 code = 658) PROTHROMBIN TIME/[id number] 13:48:05 Test Item Value Reference Range Interpretation Comments PROTIME (BEAKER) 19.5 seconds 11.9-14.2 H (test code = 759) INR (BEAKER) (test 1.67 See_Comment [Automat ed message] code = 370) The system ic h generated this result transmitted ref erence range: <=5.90. The reference range was not used to int erpret this result as normal/abnormal . RECOMMENDED COUMADIN/WARFARIN INR THERAPY RANGESSTANDARD DOSE: 2.0 - 3.0 Includes: PROPHYLAXIS for venous thrombosis, systemic embolization; TREATMENT for venous thrombosis and/or pulmonary embolus.HIGH RISK: Target INR is 2.5-3.5 for patients with mechanical heart valves.Platelet [id number] 13:39:36 Test Item Value Reference Range Interpretation Comments Platelets (test code 133 See_Comment L [Autom ated = 777-3) message] The system which generated this result transmit levi reference range : 150 - 450 K/CU MM. The reference range was not u sed to interpret th is result as normal/abnormal . BRANDI (test code = BRANDI) Director Of Enterprise Architecture ID - [id number] Lab Interpretation Abnormal (test code = 18663-1) [facility] [id number] 13:39:36 Test Item Value Reference Range Interpretation Comments Platelets (test code 133 See_Comment L [Autom ated = 777-3) message] The system which generated this result transmit levi reference range : 150 - 450 K/CU MM. The reference range was not u sed to interpret th is result as normal/abnormal . BRANDI (test code = BRANDI) Director Of Enterprise Architecture ID - [id number] Lab Interpretation Abnormal (test code = 38860-5) [facility] [id number] 13:39:36 Test Item Value Reference Range Interpretation Comments Platelets (test code 133 See_Comment L [Autom ated = 777-3) message] The system which generated this result transmit levi reference range : 150 - 450 K/CU MM. The reference range was not u sed to interpret th is result as normal/abnormal . BRANDI (test code = BRANDI) Director Of Enterprise Architecture ID - [id number] Lab Interpretation Abnormal (test code = 74945-4) [facility] [id number] 13:39:36 Test Item Value Reference Range Interpretation Comments Platelets (test code 133 See_Comment L [Autom ated = 777-3) message] The system which generated this result transmit levi reference range : 150 - 450 K/CU MM. The reference range was not u sed to interpret th is result as normal/abnormal . BRANDI (test code = BRANDI) Director Of Enterprise [employer] ID - [id number] Lab Interpretation Abnormal (test code = 59902-1) [facility] [id number] 13:39:36 Test Item Value Reference Range Interpretation Comments Platelets (test code 133 See_Comment L [Autom ated = 777-3) message] The system which generated this result transmit levi reference range : 150 - 450 K/CU MM. The reference range was not u sed to interpret th is result as normal/abnormal . BRANDI (test code = BRANDI) Director Of Enterprise Architecture ID - [id number] Lab Interpretation Abnormal (test code = 84196-3) [facility] [id number] 13:39:36 Test Item Value Reference Range Interpretation Comments Platelets (test code 133 See_Comment L [Autom ated = 777-3) message] The system which generated this result transmit levi reference range : 150 - 450 K/CU MM. The reference range was not u sed to interpret th is result as normal/abnormal . BRANDI (test code = BRANDI) Director Of Enterprise [employer] ID - [id number] Lab Interpretation Abnormal (test code = 58503-5) [facility] [id number] 13:39:36 Test Item Value Reference Range Interpretation Comments Platelets (test code 133 See_Comment L [Autom ated = 777-3) message] The system which generated this result transmit levi reference range : 150 - 450 K/CU MM. The reference range was not u sed to interpret th is result as normal/abnormal . BRANDI (test code = BRANDI) Director Of Enterprise Architecture ID - [id number] Lab Interpretation Abnormal (test code = 57573-3) [facility] [id number] 13:39:36 Test Item Value Reference Range Interpretation Comments Platelets (test code 133 See_Comment L [Autom ated = 777-3) message] The system which generated this result transmit levi reference range : 150 - 450 K/CU MM. The reference range was not u sed to interpret th is result as normal/abnormal . BRANDI (test code = BRANDI) Director Of Enterprise Architecture ID - [id number] Lab Interpretation Abnormal (test code = 03211-4) [facility] [id number] 13:39:36 Test Item Value Reference Range Interpretation Comments Platelets (test code 133 See_Comment L [Autom ated = 777-3) message] The system which generated this result transmit levi reference range : 150 - 450 K/CU MM. The reference range was not u sed to interpret th is result as normal/abnormal . BRANDI (test code = BRANDI) Director Of Enterprise Architecture ID - [id number] Lab Interpretation Abnormal (test code = 62385-9) [facility] [id number] 13:39:36 Test Item Value Reference Range Interpretation Comments Platelets (test code 133 See_Comment L [Autom ated = 777-3) message] The system which generated this result transmit levi reference range : 150 - 450 K/CU MM. The reference range was not u sed to interpret th is result as normal/abnormal . BRANDI (test code = BRANDI) Director Of Enterprise Architecture ID - [id number] Lab Interpretation Abnormal (test code = 18056-7) [facility] [id number] 13:39:36 Test Item Value Reference Range Interpretation Comments Platelets (test code 133 See_Comment L [Autom ated = 777-3) message] The system which generated this result transmit levi reference range : 150 - 450 K/CU MM. The reference range was not u sed to interpret th is result as normal/abnormal . BRANDI (test code = BRANDI) Director Of Enterprise Architecture ID - [id number] Lab Interpretation Abnormal (test code = 83689-6) [facility] [id number] 13:39:36 Test Item Value Reference Range Interpretation Comments Platelets (test code 133 See_Comment L [Autom ated = 777-3) message] The system which generated this result transmit levi reference range : 150 - 450 K/CU MM. The reference range was not u sed to interpret th is result as normal/abnormal . BRANDI (test code = BRANDI) Director Of Enterprise Architecture ID - [id number] Lab Interpretation Abnormal (test code = 40221-6) [facility] [id number] 13:39:36 Test Item Value Reference Range Interpretation Comments PLATELET COUNT (BEAKER) (test 133 K/CU MM 150-450 L code = 756) Director Of Enterprise [employer] ID - [id number]/HCT (H&H) - STAT [id number] 13:26:47 Test Item Value Reference Range Interpretation Comments HEMOGLOBIN (BEAKER) (test code = 7.4 GM/DL 12.0-15.0 L 410) HEMATOCRIT (BEAKER) (test code = 22.0 % 36.0-45.0 L 411) GLUCOSE-STAT [id number] 13:26:46 Test Item Value Reference Range Interpretation Comments GLUCOSE RANDOM (BEAKER) (test code 199 mg/dL 70-110 H = 652) SODIUM NA-STAT [id number] 13:26:46 Test Item Value Reference Range Interpretation Comments SODIUM (BEAKER) (test code = 381) 134 meq/L 136-145 L CALCIUM, [id number] 13:26:40 Test Item Value Reference Range Interpretation Comments CALCIUM IONIZED (BEAKER) (test 1.03 mmol/L 1.12-1.27 L code = 698) PH, BLOOD (BEAKER) (test code = 7.33 1810) BLOOD GAS, [id number] 13:26:34 Test Item Value Reference Range Interpretation [...] (BEAKER) (test code = 1819) 100.0 POTASSIUM-STAT [id number] 13:24:59 Test Item Value Reference Range Interpretation Comments POTASSIUM (BEAKER) (test code = 4.5 meq/L 3.6-5.5 379) PLATELET [id number] 13:18:08 Test Item Value Reference Range Interpretation Comments PLATELET COUNT (BEAKER) (test code 53 K/CU MM 150-450 L = 756) Director Of Enterprise Architecture ID - [id number] ID - [id number] ID - [id number] 12:53:55 Test Item Value Reference Range Interpretation Comments PARTIAL THROMBOPLASTIN TIME > seconds 22.5-36.0 HH (BEAKER) (test code = 760) [id number] 12:36:04 Test Item Value Reference Range Interpretation Comments FIBRINOGEN LEVEL (BEAKER) (test 289 mg/dl 225-434 code = 658) PROTHROMBIN [id number] 12:35:28 Test Item Value Reference Range Interpretation Comments PROTIME (BEAKER) 25.4 seconds 11.9-14.2 H (test code = 759) INR (BEAKER) (test 2.35 See_Comment [Automat ed message] code = 370) The system [employer] generated this result transmitted ref erence range: <=5.90. The reference range was not used to int erpret this result as normal/abnormal . RECOMMENDED COUMADIN/WARFARIN INR THERAPY RANGESSTANDARD DOSE: 2.0 - 3.0 Includes: PROPHYLAXIS for venous thrombosis, systemic embolization; TREATMENT for venous thrombosis and/or pulmonary embolus.HIGH RISK: Target INR is 2.5-3.5 for patients with mechanical heart valves.HGB/HCT (H&H) - STAT [id number] 12:28:06 Test Item Value Reference Range Interpretation Comments HEMOGLOBIN (BEAKER) (test code = 9.3 GM/DL 12.0-15.0 L 410) HEMATOCRIT (BEAKER) (test code = 27.0 % 36.0-45.0 L 411) SODIUM NA-STAT [id number] 12:28:05 Test Item Value Reference Range Interpretation Comments SODIUM (BEAKER) (test code = 381) 133 meq/L 136-145 L GLUCOSE-STAT [id number] 12:28:05 Test Item Value Reference Range Interpretation Comments GLUCOSE RANDOM (BEAKER) (test code 189 mg/dL 70-110 H = 652) BLOOD GAS, [id number] 12:28:04 Test Item Value Reference Range Interpretation [...] (BEAKER) (test code = 1819) 75.0 POTASSIUM-STAT [id number] 12:27:48 Test Item Value Reference Range Interpretation Comments POTASSIUM (BEAKER) (test code = 5.5 meq/L 3.6-5.5 379) BLOOD GAS, [id number] 11:48:59 Test Item Value Reference Range Interpretation [...] (BEAKER) (test code = 1819) 70.0 GLUCOSE-STAT [id number] 11:47:10 Test Item Value Reference Range Interpretation Comments GLUCOSE RANDOM (BEAKER) (test code 186 mg/dL 70-110 H = 652) HGB/HCT (H&H) - STAT [id number] 11:47:10 Test Item Value Reference Range Interpretation Comments HEMOGLOBIN (BEAKER) (test code = 8.9 GM/DL 12.0-15.0 L 410) HEMATOCRIT (BEAKER) (test code = 26.0 % 36.0-45.0 L 411) SODIUM NA-STAT [id number] 11:47:09 Test Item Value Reference Range Interpretation Comments SODIUM (BEAKER) (test code = 381) 133 meq/L 136-145 L POTASSIUM-STAT [id number] 11:46:29 Test Item Value Reference Range Interpretation Comments POTASSIUM (BEAKER) (test code = 5.3 meq/L 3.6-5.5 379) HGB/HCT (H&H) - STAT [id number] 11:17:46 Test Item Value Reference Range Interpretation Comments HEMOGLOBIN (BEAKER) (test code = 9.6 GM/DL 12.0-15.0 L 410) HEMATOCRIT (BEAKER) (test code = 28.0 % 36.0-45.0 L 411) SODIUM NA-STAT [id number] 11:17:45 Test Item Value Reference Range Interpretation Comments SODIUM (BEAKER) (test code = 381) 133 meq/L 136-145 L BLOOD GAS, [id number] 11:17:39 Test Item Value Reference Range Interpretation [...] (BEAKER) (test code = 1819) 70.0 GLUCOSE-STAT [id number] 11:17:39 Test Item Value Reference Range Interpretation Comments GLUCOSE RANDOM (BEAKER) (test code 171 mg/dL 70-110 H = 652) POTASSIUM-STAT [id number] 11:17:36 Test Item Value Reference Range Interpretation Comments POTASSIUM (BEAKER) (test code = 5.1 meq/L 3.6-5.5 379) HGB/HCT (H&H) - STAT [id number] 10:50:26 Test Item Value Reference Range Interpretation Comments HEMOGLOBIN (BEAKER) (test code = 8.4 GM/DL 12.0-15.0 L 410) HEMATOCRIT (BEAKER) (test code = 25.0 % 36.0-45.0 L 411) SODIUM NA-STAT [id number] 10:50:25 Test Item Value Reference Range Interpretation Comments SODIUM (BEAKER) (test code = 381) 133 meq/L 136-145 L GLUCOSE-STAT [id number] 10:50:25 Test Item Value Reference Range Interpretation Comments GLUCOSE RANDOM (BEAKER) (test code 134 mg/dL 70-110 H = 652) BLOOD GAS, [id number] 10:50:24 Test Item Value Reference Range Interpretation [...] (BEAKER) (test code = 1819) 100.0 POTASSIUM-STAT [id number] 10:49:45 Test Item Value Reference Range Interpretation Comments POTASSIUM (BEAKER) (test code = 3.8 meq/L 3.6-5.5 379) Hemoglobin [id number] 09:30:26 Test Item Value Reference Range Interpretation [...] ADM Lab Interpretation Abnormal (test code = 78115-2) [facility] [id number] 09:30:26 Test Item Value Reference Range Interpretation [...] ADM Lab Interpretation Abnormal (test code = 41221-1) [facility] [id number] 09:30:26 Test Item Value Reference Range Interpretation [...] ADM Lab Interpretation Abnormal (test code = 40223-7) [facility] [id number] 09:30:26 Test Item Value Reference Range Interpretation [...] ADM Lab Interpretation Abnormal (test code = 51772-7) [facility] [id number] 09:30:26 Test Item Value Reference Range Interpretation [...] ADM Lab Interpretation Abnormal (test code = 62581-3) [facility] [id number] 09:30:26 Test Item Value Reference Range Interpretation [...] ADM Lab Interpretation Abnormal (test code = 59433-1) [facility] [id number] 09:30:26 Test Item Value Reference Range Interpretation [...] ADM Lab Interpretation Abnormal (test code = 29481-2) [facility] [id number] 09:30:26 Test Item Value Reference Range Interpretation [...] ADM Lab Interpretation Abnormal (test code = 89110-1) [facility] [id number] 09:30:26 Test Item Value Reference Range Interpretation [...] ADM Lab Interpretation Abnormal (test code = 71648-2) [facility] [id number] 09:30:26 Test Item Value Reference Range Interpretation [...] ADM Lab Interpretation Abnormal (test code = 45565-5) [facility] [id number] 09:30:26 Test Item Value Reference Range Interpretation [...] ADM Lab Interpretation Abnormal (test code = 52709-9) [facility] [id number] 09:30:26 Test Item Value Reference Range Interpretation [...] ADM Lab Interpretation Abnormal (test code = 03548-2) [facility] [id number] 09:30:26 Test Item Value Reference Range Interpretation [...] 5.7- 6.4% indicates increased risk for diabetes (prediabetes)."Director Of Enterprise Architecture ID - ADM HGB/HCT (H&H) - STAT [id number] 09:13:03 Test Item Value Reference Range Interpretation Comments HEMOGLOBIN (BEAKER) (test code = 9.0 GM/DL 12.0-15.0 L 410) HEMATOCRIT (BEAKER) (test code = 26.0 % 36.0-45.0 L 411) SODIUM NA-STAT [id number] 09:13:02 Test Item Value Reference Range Interpretation Comments SODIUM (BEAKER) (test code = 381) 134 meq/L 136-145 L GLUCOSE-STAT [id number] 09:13:02 Test Item Value Reference Range Interpretation Comments GLUCOSE RANDOM (BEAKER) (test code 112 mg/dL 70-110 H = 652) BLOOD GAS, [id number] 09:13:01 Test Item Value Reference Range Interpretation [...] (BEAKER) (test code = 1819) 100.0 CALCIUM, [id number] 09:13:00 Test Item Value Reference Range Interpretation Comments CALCIUM IONIZED (BEAKER) (test 1.09 mmol/L 1.12-1.27 L code = 698) PH, BLOOD (BEAKER) (test code = 7.46 1810) POTASSIUM-STAT [id number] 09:12:15 Test Item Value Reference Range Interpretation Comments POTASSIUM (BEAKER) (test code = 3.7 meq/L 3.6-5.5 379) BASIC METABOLIC [id number] 07:11:03 Test Item Value Reference Range Interpretation [...] S NOT APPLICABLE FOR DIALYSIS PATIEN TS. Director Of Enterprise Architecture ID - HIEN [id number] 06:29:42 Test Item Value Reference Range Interpretation Comments PHOSPHORUS (BEAKER) (test code = 4.7 mg/dL 2.3-4.7 604) Director Of Enterprise Architecture ID - HIEN [id number] 06:29:41 Test Item Value Reference Range Interpretation Comments MAGNESIUM (BEAKER) (test code = 2.0 mg/dL 1.6-2.6 627) Director Of Enterprise Architecture ID - HIEN [facility] W/PLT COUNT & AUTO [id number] 06:04:09 Test Item Value Reference Range Interpretation [...] code = 2801) RAD, ABDOMEN/KUB, 1 VIEW [id number] 02:55:00Reason for exam:->abdominal painGLENN MEDICAL [facility]ENTERName: [facility] : 1955 Sex: FFINAL REPORT CLINICAL HISTORY: abdominal pain COMPARISON: None. FINDINGS: Two supine images of the abdomen are submitted. The abdominal bowel gas pattern is nonspecific but largely gasless. Dilated, fluid-filled bowel loops could be present. Evaluation with CT of the abdomen and pelvis can be obtained, if indicated. Enteric contrast overlies the left colon and rectum. Atherosclerotic calcifications are present in the abdomen and pelvis. There is no acute bony abnormality. Signed: Braxton Quintero MDReport Verified Date/Time: 06/18/2021 02:55:15 POCT-GLUCOSE [id number] 21:39:12 Test Item Value Reference Range Interpretation Comments POC-GLUCOSE METER 135 mg/dL 70-110 H : TESTED A T [facility] (BEAKER) (test code = [place]UD[place], 1538) [address]: Director Of Enterprise Architecture/Techni kelle ID = [id number] for Eliezer Jerome HEMOGLOBIN AND [id number] 21:31:20 Test Item Value Reference Range Interpretation Comments HEMOGLOBIN (BEAKER) (test code = 6.9 GM/DL 11.2-15.7 L 410) HEMATOCRIT (BEAKER) (test code = 21.8 % 34.1-44.9 L 411) Director Of Enterprise Architecture ID - [id number] ID - [id number], [id number] 18:33:00Unlisted Reason for Exam - Click Yes and Enter Reason Below->NoIs this for enterography?->NoPlease specify:->Renal Stone Protocolalso look for spleen if there is any infarct causing left flankpainWill this procedure require oral contrast?->NoGLENN MEDICAL CENTERName: JAK MERRILL MONTOYA : 1955 Sex: FFINAL REPORT EXAM: CT Abdomen and Pelvis WITHOUT intravenous contrast INDICATION: Flank pain, kidney stone suspected. COMPARISON: CT chest 06/15/2021. TECHNIQUE: Abdomen and pelvis were scanned utilizing a multidetector helical scanner from the lung base to the pubic symphysis withoutadministration of IV contrast. Coronal and sagittal reformations were obtained. Routine technique was performed. Dose modulation, iterative reconstruction, and/or weight-based adjustment of the mA/kV was utilized to reduce the radiation dose to as low as reasonably achievable. IV CONTRAST: NoneORAL CONTRAST: Water COMPLICATIONS: None RADIATION DOSE:Total DLP: 393 mGy*cmDose modulation, iterative reconstruction, and/or weight based adjustment of the mA/kV was utilized to reduce the radiation dose to as low as reasonably achievable. FINDINGS:LOWER THORAX: Moderate right effusion with right lower lobeairspace opacity displaying air bronchograms. Left base displays interstitial thickening, compressive atelectasis and perivascular groundglass opacities. Cardiomegaly. Pacer leads terminating within the right atrium and right ventricle. HEPATOBILIARY: Diffusely dense hepatic parenchyma. No focal hepatic lesions. Hepatomegaly to 19.7 cm. No biliary ductal dilatation. Cholelithiasis without evidence ofcholecystitis. Excreted contrast layering within the gallbladder. SPLEEN: [...] mm right upper pole indeterminate hypodensity. Multiple bila teral hypodensities too small to further characterize.PELVIC ORGANS/BLADDER: [...] lower lobe airspace opacity displaying air bronchograms, mayrepresent pneumonia/pneumonitis with component of atelectasis.2.Cardiomegaly with left base interstitial thickening with perivascular groundglass airspace opacities, interstitial edema.3.Trace perihepatic ascites with superficial soft tissue displaying interstitial edema.4.Diffusely dense hepatic parenchyma, likely due to deposition disease and/or medication toxicity (amiodarone).5.Hepatomegaly and splenomegaly.6.1.4 cm left adrenal nodule, too dense for adenoma. Recommend adrenal protocol CT or MRI for further evaluation.7.Kidneys are atrophic bilaterally with multiple dense and indeterminate lesions as described above. Recommend renal protocol CT or MRI for further evaluation.8.1.4 cm hypodensity within the lower body of the uterus, recommend pelvic ultrasound for further evaluation. Signed: Kb Gregorio MDReport Verified Date/Time: 06/17/2021 18:33:28 Reading Location: [address] Reading Room Comprehensive metabolic [id number] 16:18:22 Test Item Value Reference Range Interpretation Comments Protein, Total (test 7.0 See_Comment [Autom ated code = 2885-2) message] The system which generated this result transmit levi reference range : 6.0 - 8.3 gm/dL . The reference range was not u sed to interpret th is result as normal/abnormal . Albumin (test code = 2.7 g/dL 3.5-5.0 L 70884-2) Alkaline Phosphatase 99 U/L 40-150 (test code = 6768-6) Total Bilirubin (test 0.4 mg/dL 0.2-1.2 code = 1975-2) Sodium (test code = 135 meq/L 136-145 L 2951-2) Potassium (test code 3.7 meq/L 3.5-5.1 = 2823-3) Chloride (test code = 100 meq/L 98-107 2074-0) CO2 (test code = 29 meq/L 22-29 2027-12) BUN (test code = 17 mg/dL 7-21 3094-0) Creatinine (test code 4.22 mg/dL 0.57-1.25 H = 2160-0) Glucose (test code = 109 mg/dL 70-105 H 2345-7) Calcium (test code = 8.4 mg/dL 8.4-10.2 55340-4) AST (test code = 17 U/L 5-34 1920-8) ALT (test code = 10 U/L 6-55 1742-6) EGFR (test code = 11 mL/min/1.73 [place] [address]-3) NOT ACCURATE CREATININE CLEARANCE IN PREDICTING GLOMERULAR FILTRATION RATE . ESTIMATED GFR I S NOT APPLICABLE FOR DIALYSIS PATIEN TS. BRANDI (test code = BRANDI) Director Of Enterprise Architecture ID - BS Lab Interpretation Abnormal (test code = 00988-5) [facility] [id number] 16:18:22 Test Item Value Reference Range Interpretation Comments Protein, Total (test 7.0 See_Comment [Autom ated code = 2885-2) message] The system which generated this result transmit levi reference range : 6.0 - 8.3 gm/dL . The reference range was not u sed to interpret th is result as normal/abnormal . Albumin (test code = 2.7 g/dL 3.5-5.0 L 57013-5) Alkaline Phosphatase 99 U/L 40-150 (test code = 6768-6) Total Bilirubin (test 0.4 mg/dL 0.2-1.2 code = 1975-2) Sodium (test code = 135 meq/L 136-145 L 2951-2) Potassium (test code 3.7 meq/L 3.5-5.1 = 2823-3) Chloride (test code = 100 meq/L 98-107 5-0) CO2 (test code = 29 meq/L 22-29 2027-9) BUN (test code = 17 mg/dL 10-22 3094-0) Creatinine (test code 4.22 mg/dL 0.57-1.25 H = 2160-0) Glucose (test code = 109 mg/dL 70-105 H 2345-7) Calcium (test code = 8.4 mg/dL 8.4-10.2 96541-5) AST (test code = 17 U/L -1919-8) ALT (test code = 10 U/L 1742-6) EGFR (test code = 11 mL/min/1.[place] [address]-5) NOT ACCURATE CREATININE CLEARANCE IN PREDICTING GLOMERULAR FILTRATION RATE . ESTIMATED GFR I S NOT APPLICABLE FOR DIALYSIS PATIEN TSEsvin BRANDI (test code = BRANDI) Director Of Enterprise Architecture ID - BS Lab Interpretation Abnormal (test code = 46568-7) [facility] [id number] 16:18:22 Test Item Value Reference Range Interpretation Comments Protein, Total (test 7.0 See_Comment [Autom ated code = 2885-2) message] The system which generated this result transmit levi reference range : 6.0 - 8.3 gm/dL . The reference range was not u sed to interpret th is result as normal/abnormal . Albumin (test code = 2.7 g/dL 3.5-5.0 L 07541-7) Alkaline Phosphatase 99 U/L 40-150 (test code [...] Calcium (test code = 8.4 mg/dL 8.4-10.2 28392-6) AST (test code = 17 U/L -1919-8) ALT (test code = 10 U/L 2-6) EGFR (test code = 11 mL/min/1.[place] [address]-9) NOT ACCURATE CREATININE CLEARANCE IN PREDICTING GLOMERULAR FILTRATION RATE . ESTIMATED GFR I S NOT APPLICABLE FOR DIALYSIS PATIEN TSEsvin BRANDI (test code = BRANDI) Director Of Enterprise Architecture ID - BS Lab Interpretation Abnormal (test code = 71128-7) [facility] [id number] 16:18:22 Test Item Value Reference Range Interpretation Comments Protein, Total (test 7.0 See_Comment [Autom ated code = 2885-2) message] The system which generated this result transmit levi reference range : 6.0 - 8.3 gm/dL . The reference range was not u sed to interpret th is result as normal/abnormal . Albumin (test code = 2.7 g/dL 3.5-5.0 L 31060-7) Alkaline Phosphatase 99 U/L 40-150 (test code [...] Calcium (test code = 8.4 mg/dL 8.4-10.2 10491-1) AST (test code = 17 U/L 5-34 1920-8) ALT (test code = 10 U/L 6-55 1742-6) EGFR (test code = 11 mL/min/1.[place] [address]-5) NOT ACCURATE CREATININE CLEARANCE IN PREDICTING GLOMERULAR FILTRATION RATE . ESTIMATED GFR I S NOT APPLICABLE FOR DIALYSIS PATIEN TS. BRANDI (test code = BRANDI) Director Of Enterprise Architecture ID - BS Lab Interpretation Abnormal (test code = 07280-1) [facility] [id number] 16:18:22 Test Item Value Reference Range Interpretation Comments Protein, Total (test 7.0 See_Comment [Autom ated code = 2885-2) message] The system which generated this result transmit levi reference range : 6.0 - 8.3 gm/dL . The reference range was not u sed to interpret th is result as normal/abnormal . Albumin (test code = 2.7 g/dL 3.5-5.0 L 72708-9) Alkaline Phosphatase 99 U/L 40-150 (test code [...] Calcium (test code = 8.4 mg/dL 8.4-10.2 80098-2) AST (test code = 17 U/L 5-34 1920-8) ALT (test code = 10 U/L 6-55 1742-6) EGFR (test code = 11 mL/min/1.73 sq m ESTIMA [facility] [place] [address]-8) NOT ACCURATE CREATININE CLEARANCE IN PREDICTING GLOMERULAR FILTRATION RATE . ESTIMATED GFR I S NOT APPLICABLE FOR DIALYSIS PATIEN TS. BRANDI (test code = BRANDI) Director Of Enterprise Architecture ID - BS Lab Interpretation Abnormal (test code = 79328-1) [facility] [id number] 16:18:22 Test Item Value Reference Range Interpretation Comments Protein, Total (test 7.0 See_Comment [Autom ated code = 2885-2) message] The system which generated this result transmit levi reference range : 6.0 - 8.3 gm/dL . The reference range was not u sed to interpret th is result as normal/abnormal . Albumin (test code = 2.7 g/dL 3.5-5.0 L 46584-4) Alkaline Phosphatase 99 U/L 40-150 (test code [...] Calcium (test code = 8.4 mg/dL 8.4-10.2 71893-6) AST (test code = 17 U/L 5-34 1920-8) ALT (test code = 10 U/L 6-55 1742-6) EGFR (test code = 11 mL/min/1.[place] [address]-1) NOT ACCURATE CREATININE CLEARANCE IN PREDICTING GLOMERULAR FILTRATION RATE . ESTIMATED GFR I S NOT APPLICABLE FOR DIALYSIS PATIEN TS. BRANDI (test code = BRANDI) Director Of Enterprise Architecture ID - BS Lab Interpretation Abnormal (test code = 37673-6) [facility] [id number] 16:18:22 Test Item Value Reference Range Interpretation Comments Protein, Total (test 7.0 See_Comment [Autom ated code = 2885-2) message] The system which generated this result transmit levi reference range : 6.0 - 8.3 gm/dL . The reference range was not u sed to interpret th is result as normal/abnormal . Albumin (test code = 2.7 g/dL 3.5-5.0 L 77529-7) Alkaline Phosphatase 99 U/L 40-150 (test code = 6768-6) Total Bilirubin (test 0.4 mg/dL 0.2-1.2 code = 1974-) Sodium (test code = 135 meq/L 136-145 L 2951-2) Potassium (test code 3.7 meq/L 3.5-5.1 = 2823-3) Chloride (test code = 100 meq/L 98-107 2075-0) CO2 (test code = 29 meq/L 2027-12) BUN (test code = 17 mg/dL 10-224-0) Creatinine (test code 4.22 mg/dL 0.57-1.25 H = 2160-0) Glucose (test code = 109 mg/dL 70-105 H 2345-7) Calcium (test code = 8.4 mg/dL 8.4-10.2 92367-5) AST (test code = 17 U/L -34 1920-8) ALT (test code = 10 U/L 6-55 1742-6) EGFR (test code = 11 mL/min/1.[place] [address]-2) NOT ACCURATE CREATININE CLEARANCE IN PREDICTING GLOMERULAR FILTRATION RATE . ESTIMATED GFR I S NOT APPLICABLE FOR DIALYSIS PATIEN BRANDI (test code = BRANDI) Director Of Enterprise Architecture ID - BS Lab Interpretation Abnormal (test code = 19937-0) [facility] [id number] 16:18:22 Test Item Value Reference Range Interpretation Comments Protein, Total (test 7.0 See_Comment [Autom ated code = 2885-2) message] The system which generated this result transmit levi reference range : 6.0 - 8.3 gm/dL . The reference range was not u sed to interpret th is result as normal/abnormal . Albumin (test code = 2.7 g/dL 3.5-5.0 L 78581-9) Alkaline Phosphatase 99 U/L 40-150 (test code [...] Calcium (test code = 8.4 mg/dL 8.4-10.2 21897-2) AST (test code = 17 U/L 1919-8) ALT (test code = 10 U/L 1741-6) EGFR (test code = 11 mL/min/1.[place] [address]-0) NOT ACCURATE CREATININE CLEARANCE IN PREDICTING GLOMERULAR FILTRATION RATE . ESTIMATED GFR I S NOT APPLICABLE FOR DIALYSIS PATIEN BRANDI (test code = BRANDI) Director Of Enterprise Architecture ID - BS Lab Interpretation Abnormal (test code = 21884-6) [facility] [id number] 16:18:22 Test Item Value Reference Range Interpretation Comments Protein, Total (test 7.0 See_Comment [Autom ated code = 2885-2) message] The system which generated this result transmit levi reference range : 6.0 - 8.3 gm/dL . The reference range was not u sed to interpret th is result as normal/abnormal . Albumin (test code = 2.7 g/dL 3.5-5.0 L 37014-6) Alkaline Phosphatase 99 U/L 40-150 (test code [...] Calcium (test code = 8.4 mg/dL 8.4-10.2 83686-5) AST (test code = 17 U/L 34 1919-8) ALT (test code = 10 U/L 2-6) EGFR (test code = 11 mL/min/1.[place] [address]-7) NOT ACCURATE CREATININE CLEARANCE IN PREDICTING GLOMERULAR FILTRATION RATE . ESTIMATED GFR I S NOT APPLICABLE FOR DIALYSIS PATIEN TS. BRANDI (test code = BRANDI) Director Of Enterprise Architecture ID - BS Lab Interpretation Abnormal (test code = 07771-6) [facility] [id number] 16:18:22 Test Item Value Reference Range Interpretation Comments Protein, Total (test 7.0 See_Comment [Autom ated code = 2885-2) message] The system which generated this result transmit levi reference range : 6.0 - 8.3 gm/dL . The reference range was not u sed to interpret th is result as normal/abnormal . Albumin (test code = 2.7 g/dL 3.5-5.0 L 26750-9) Alkaline Phosphatase 99 U/L 40-150 (test code [...] Calcium (test code = 8.4 mg/dL 8.4-10.2 71379-5) AST (test code = 17 U/L 5-34 1920-8) ALT (test code = 10 U/L 6-55 1742-6) EGFR (test code = 11 mL/min/1.[place] [address]-9) NOT ACCURATE CREATININE CLEARANCE IN PREDICTING GLOMERULAR FILTRATION RATE . ESTIMATED GFR I S NOT APPLICABLE FOR DIALYSIS PATIEN TS. BRANDI (test code = BRANDI) Director Of Enterprise Architecture ID - BS Lab Interpretation Abnormal (test code = 86598-3) [facility] [id number] 16:18:22 Test Item Value Reference Range Interpretation Comments Protein, Total (test 7.0 See_Comment [Autom ated code = 2885-2) message] The system which generated this result transmit levi reference range : 6.0 - 8.3 gm/dL . The reference range was not u sed to interpret th is result as normal/abnormal . Albumin (test code = 2.7 g/dL 3.5-5.0 L 83462-6) Alkaline Phosphatase 99 U/L 40-150 (test code [...] Calcium (test code = 8.4 mg/dL 8.4-10.2 07567-6) AST (test code = 17 U/L 5-34 1920-8) ALT (test code = 10 U/L 6-55 1742-6) EGFR (test code = 11 mL/min/1.[place] [address]-3) NOT ACCURATE CREATININE CLEARANCE IN PREDICTING GLOMERULAR FILTRATION RATE . ESTIMATED GFR I S NOT APPLICABLE FOR DIALYSIS PATIEN TSEsvin BRANDI (test code = BRANDI) Director Of Enterprise [employer] ID - BS Lab Interpretation Abnormal (test code = 67276-3) [facility] [id number] 16:18:22 Test Item Value Reference Range Interpretation Comments Protein, Total (test 7.0 See_Comment [Autom ated code = 2885-2) message] The system which generated this result transmit levi reference range : 6.0 - 8.3 gm/dL . The reference range was not u sed to interpret th is result as normal/abnormal . Albumin (test code = 2.7 g/dL 3.5-5.0 L 95744-6) Alkaline Phosphatase 99 U/L 40-150 (test code [...] Calcium (test code = 8.4 mg/dL 8.4-10.2 64183-6) AST (test code = 17 U/L 5-34 1920-8) ALT (test code = 10 U/L 6-55 1742-6) EGFR (test code = 11 mL/min/1.[place] [address]-3) NOT ACCURATE CREATININE CLEARANCE IN PREDICTING GLOMERULAR FILTRATION RATE . ESTIMATED GFR I S NOT APPLICABLE FOR DIALYSIS PATIEN BRANDI (test code = BRANDI) Director Of Enterprise Architecture ID - BS Lab Interpretation Abnormal (test code = 75745-7) [facility] [id number] 16:18:22 Test Item Value Reference Range Interpretation [...] S NOT APPLICABLE FOR DIALYSIS PATIEN TS. Director Of Enterprise Architecture ID - [id number] 16:17:20 Test Item Value Reference Range Interpretation Comments MAGNESIUM (BEAKER) (test code = 1.8 mg/dL 1.6-2.6 627) Director Of Enterprise Architecture ID - [id number] 16:10:37 Test Item Value Reference Range Interpretation Comments PARTIAL THROMBOPLASTIN TIME 34.5 seconds 22.5-36.0 (BEAKER) (test code = 760) PROTHROMBIN TIME/[id number] 16:10:03 Test Item Value Reference Range Interpretation Comments PROTIME (BEAKER) 17.2 seconds 11.9-14.2 H (test code = 759) INR (BEAKER) (test 1.43 See_Comment [Automat ed message] code = 370) The system [employer] generated this result transmitted ref erence range: <=5.90. The reference range was not used to int erpret this result as normal/abnormal . RECOMMENDED COUMADIN/WARFARIN INR THERAPY RANGESSTANDARD DOSE: 2.0 - 3.0 Includes: PROPHYLAXIS for venous thrombosis, systemic embolization; TREATMENT for venous thrombosis and/or pulmonary embolus.HIGH RISK: Target INR is 2.5-3.5 for patients with mechanical heart valves.CBC W/PLT COUNT & AUTO [id number] 16:01:31 Test Item Value Reference Range Interpretation [...] (BEAKER) (test code = 2801) NV, ANGIOGRAM, [id number] 09:13:00Reason for exam:->mycotic aneurysm [facility] : 1955 Sex: FFINAL REPORT DATE OF PROCEDURE: 06/16/2021 SURGEON: Mili Kent MD MIXING HOUSE OPERATOR: Eloy Portillo MD; Alisa Monae MD PREOPERATIVE DIAGNOSIS: Subarachnoid hemorrhage POST OPERATIVE DIAGNOSIS: Nonaneurysmal subarachnoid hemorrhage PROCEDURE: Diagnostic cerebral injury ANESTHESIA: Monitored anesthesia ESTIMATED BLOOD LOSS: Minimal COMPLICATIONS: None Vessels catheterized:Right common femoral arteryRight common carotid artery, cervicalRight common carotid, cerebralLeft common carotid artery, cervicalLeft common carotid, cerebralLeft vertebral artery *FEMORAL*5F sheathBentson WireVertebral CatheterTerumo Plains wireMynx Closure Device INDICATIONS: 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 She presents for diagnostic cerebral angiogram to rule out mycotic aneurysm prior to valve replacement. CONSENT: The risks and benefits of the procedure were discussed with the patient and his/her family. These include but are notlimited to infection, bleeding, stroke, , vessel injury, groin hematoma, retroperitoneal hematoma and need for additional treatment and/or therapy. The questions were answered. They understood andwished to proceed. PROCEDURE: The right femoral artery [...] into the descending aorta, back-bled, and flushed in the usual fashion. Using coaxial technique, the catheter was advanced into the aortic arch, and with the aid of the roadmapping, digital fluoroscopy, and [...] was removed and hemostasis was achieved with amynx closure device. The patient tolerated the procedure [...] arteries are patent. There is a right WEAVER HAND LOOM variant anatomy. No evidence of aneurysm, vascular malformation, or arteriovenous shunting. Dynamic imaging demonstrates a normal capillary phase. The intracranial venous structures opacify appropriately and appear patent. The visualized branches of the right external carotid artery appear normal in contour and caliber. No evidence of aneurysm, vascular malformation or arteriovenous shunting. 3D ROTATIONAL ANGIOGRAPHY OF RIGHT COMMON CAROTID ARTERY (DSA -AP, LATERAL - HEAD) The catheter was advanced [...] and lateral views of the cervical region was performed. The distal common, proximal internal, and imaged external carotid arteries are normal in caliber and contour. The carotid bifurcation is widely patent. LEFT COMMON CAROTID ARTERY (DSA - AP, LATERAL - HEAD) The catheter was advanced into the left common carotid artery. DSA in the AP,lateral, and oblique views of the intracranial circulation was performed. The intracranial segments of the left internal carotid artery, the middle cerebral artery, and the anterior cerebral artery andthe branch vessels are normal in caliber and [...] artery and the branch vessels are normal incaliber and contour. No evidence of aneurysm, vascular malformation, or arteriovenous shunting. LEFTVERTEBRAL ARTERY (DSA - AP, LATERAL - HEAD) The catheter was advanced into the left vertebral artery. DSA in the AP and lateral views of the intracranial circulation was performed. The distal vertebralartery and the basilar artery are normal in [...] cerebral artery is diminutive in size given WEAVER HAND LOOM anatomy and the the left WEAVER HAND LOOM is normal in caliber and contour. No evidence of aneurysm, vascular malformation, or arteriovenous shunting. Dynamic imaging guidance with normal capillary phase. The intracranial venous structures opacify appropriately and appear patent. SUPERVISION AND INTERPRETATION: Dr. Kent was present for the entirety of the procedure Angiographic study demonstrates: 1. Normal cerebral angiogram. There is no evidence of mycotic aneurysm, vascular malformation or arteriovenous shunting. No immediate technical or clinical complications. Signed: Mili Kent MDReport Verified Date/Time: 06/17/2021 09:13:43 Reading Location[facility] BASIC METABOLIC [id number] 05:09:41 Test Item Value Reference Range Interpretation [...] S NOT APPLICABLE FOR DIALYSIS PATIEN TS. Director Of Enterprise Architecture ID - HIEN [id number] 05:07:06 Test Item Value Reference Range Interpretation Comments MAGNESIUM (BEAKER) (test code = 2.1 mg/dL 1.6-2.6 627) Director Of Enterprise Architecture ID - HIEN [id number] 05:07:06 Test Item Value Reference Range Interpretation Comments PHOSPHORUS (BEAKER) (test code = 5.7 mg/dL 2.3-4.7 H 604) Director Of Enterprise Architecture ID - HIEN MCBC W/PLT COUNT & AUTO [id number] 04:38:56 Test Item Value Reference Range Interpretation [...] PERCENT (BEAKER) (test code = 2801) POCT-GLUCOSE [id number] 00:10:32 Test Item Value Reference Range Interpretation Comments POC-GLUCOSE METER 221 mg/dL 70-110 H : TESTED A T [facility] 6720 (BEAKER) (test code = [facility], 1538) [address]2486: Director Of Enterprise Architecture/Techni kelle ID = [id number] for SHAHLA BARRY POCT-GLUCOSE [id number] 18:11:32 Test Item Value Reference Range Interpretation Comments POC-GLUCOSE METER 170 mg/dL 70-110 H : TESTED A T [facility] 6720 (BEAKER) (test code = [facility], 1538) 13998: Director Of Enterprise Architecture/Techni kelle ID = [id number] for An Onelia ramirez Blood [id number] 14:00:39 Test Item Value Reference Range Interpretation Comments Result (test code = No growth in 5 days 6463-4) [facility] [id number] 14:00:39 Test Item Value Reference Range Interpretation Comments Result (test code = No growth in 5 days 6463-4) [facility] [id number] 14:00:39 Test Item Value Reference Range Interpretation Comments Result (test code = No growth in 5 days 6463-4) [facility] [id number] 14:00:39 Test Item Value Reference Range Interpretation Comments Result (test code = No growth in 5 days 6463-4) [facility] [id number] 14:00:39 Test Item Value Reference Range Interpretation Comments Result (test code = No growth in 5 days 6463-4) [facility] [id number] 14:00:39 Test Item Value Reference Range Interpretation Comments Result (test code = No growth in 5 days 6463-4) [facility] [id number] 14:00:39 Test Item Value Reference Range Interpretation Comments Result (test code = No growth in 5 days 6463-4) [facility] [id number] 14:00:39 Test Item Value Reference Range Interpretation Comments Result (test code = No growth in 5 days 6463-4) [facility] [id number] 14:00:39 Test Item Value Reference Range Interpretation Comments Result (test code = No growth in 5 days 6463-4) [facility] [id number] 14:00:39 Test Item Value Reference Range Interpretation Comments Result (test code = No growth in 5 days 6463-4) [facility]2022-03-15 14:00:39 Test Item Value Reference Range Interpretation Comments Result (test code = No growth in 5 days 6463-4) [facility]2022-03-15 14:00:39 Test Item Value Reference Range Interpretation Comments Result (test code = No growth in 5 days 6463-4) [facility]2022-03-15 14:00:39 Test Item Value Reference Range Interpretation Comments CULTURE (BEAKER) (test No growth in 5 days code = 1095) MR, BRAIN, WITHOUT [id number] 13:02:00Pt has [employer] ESSENTIO MRI L111/ [id number] Unlisted Reason for Exam - Click Yes and Enter Reason Below- >No Deos the patient have an implanted electronic device?->Yes [employer] ESSENTIO MRI L111/ [id number] [facility] 1955 Sex: [...] Cosme Verified Date/Time: 06/16/2021 13:02:07 Reading Location: [address] Neuro Reading Room D [id number] 08:00:27 Test Item Value Reference Range Interpretation Comments CULTURE (BEAKER) (test No growth in 5 days code = 1095) POCT-GLUCOSE [id number] 07:30:10 Test Item Value Reference Range Interpretation Comments POC-GLUCOSE METER 159 mg/dL 70-110 H : TESTED A T [facility] 6720 (BEAKER) (test code = [facility], 1538) 35699: Director Of Enterprise Architecture/Techni kelle ID = [id number] for An Onelia ramirez BASIC METABOLIC [id number] 05:42:18 Test Item Value Reference Range Interpretation [...] S NOT APPLICABLE FOR DIALYSIS PATIEN TS. Director Of Enterprise Architecture ID - RAKAN [id number] 05:35:31 Test Item Value Reference Range Interpretation Comments MAGNESIUM (BEAKER) (test code = 2.1 mg/dL 1.6-2.6 627) Director Of Enterprise Architecture ID - RAKAN [id number] 05:35:31 Test Item Value Reference Range Interpretation Comments PHOSPHORUS (BEAKER) (test code = 4.5 mg/dL 2.3-4.7 604) Director Of Enterprise Architecture ID - RAKAN WCBC W/PLT COUNT & AUTO [id number] 04:43:33 Test Item Value Reference Range Interpretation [...] PERCENT (BEAKER) (test code = 2801) BLOOD [id number] 00:00:28 Test Item Value Reference Range Interpretation Comments CULTURE (AKASH) (test No growth in 5 days code = 1095) The specimen volume collected for this blood culture was below the optimum (10 mL per bottle or 20 mL total). Use of lower volumes may adversely affect recovery and/or detection times of some organisms.POCT-GLUCOSE [id number] 21:39:58 Test Item Value Reference Range Interpretation Comments POC-GLUCOSE METER 173 mg/dL 70-110 H : Notified RN/MD: (AKASH) (test code = TESTED AT [facility] 6720 1538) [facility], [address]: Director Of Enterprise Architecture/Techni kelle ID = [id number] for DE NNIS, EMANUEL Hepatic function [id number] 15:52:11 Test Item Value Reference Range Interpretation Comments Protein, Total (test 6.8 See_Comment [Autom ated code = 2885-2) message] The system which generated this result transmit levi reference range : 6.0 - 8.3 gm/dL . The reference range was not u sed to interpret th is result as normal/abnormal . Albumin (test code = 2.6 g/dL 3.5-5.0 L 47792-7) Total Bilirubin (test 0.3 mg/dL 0.2-1.2 code = 1974-05) Bilirubin, Direct 0.2 mg/dL 0.1-0.5 (test code = 1967-10) Alkaline Phosphatase 90 U/L 40-150 (test code = 6768-6) AST (test code = 17 U/L 1920-8) ALT (test code = 11 U/L 1742-6) BRANDI (test code = BRANDI) Director Of Enterprise Architecture ID - PIAYA L Lab Interpretation Abnormal (test code = 25199-2) [facility] [id number] 15:52:11 Test Item Value Reference Range Interpretation Comments Protein, Total (test 6.8 See_Comment [Autom ated code = 2885-2) message] The system which generated this result transmit levi reference range : 6.0 - 8.3 gm/dL . The reference range was not u sed to interpret th is result as normal/abnormal . Albumin (test code = 2.6 g/dL 3.5-5.0 L 13478-2) Total Bilirubin (test 0.3 mg/dL 0.2-1.2 code = 1974-05) Bilirubin, Direct 0.2 mg/dL 0.1-0.5 (test code = 1967-10) Alkaline Phosphatase 90 U/L 40-150 (test code = 6768-6) AST (test code = 17 U/L 1920-8) ALT (test code = 11 U/L 1742-6) BRANDI (test code = BRANDI) Director Of Enterprise Architecture ID - PIAYA L Lab Interpretation Abnormal (test code = 76684-6) [facility] [id number] 15:52:11 Test Item Value Reference Range Interpretation Comments Protein, Total (test 6.8 See_Comment [Autom ated code = 2885-2) message] The system which generated this result transmit levi reference range : 6.0 - 8.3 gm/dL . The reference range was not u sed to interpret th is result as normal/abnormal . Albumin (test code = 2.6 g/dL 3.5-5.0 L 16441-3) Total Bilirubin (test 0.3 mg/dL 0.2-1.2 code = 1974-) Bilirubin, Direct 0.2 mg/dL 0.1-0.5 (test code = 1967-10) Alkaline Phosphatase 90 U/L 40-150 (test code = 6768-6) AST (test code = 17 U/L 1920-8) ALT (test code = 11 U/L 1742-6) BRANDI (test code = BRANDI) Director Of Enterprise Architecture ID - LIANA L Lab Interpretation Abnormal (test code = 79390-1) [facility] [id number] 15:52:11 Test Item Value Reference Range Interpretation Comments Protein, Total (test 6.8 See_Comment [Autom ated code = 2885-2) message] The system which generated this result transmit levi reference range : 6.0 - 8.3 gm/dL . The reference range was not u sed to interpret th is result as normal/abnormal . Albumin (test code = 2.6 g/dL 3.5-5.0 L 80043-4) Total Bilirubin (test 0.3 mg/dL 0.2-1.2 code = 1974-05) Bilirubin, Direct 0.2 mg/dL 0.1-0.5 (test code = 1967-10) Alkaline Phosphatase 90 U/L 40-150 (test code = 6768-6) AST (test code = 17 U/L 1919-8) ALT (test code = 11 U/L 1742-6) BRANDI (test code = BRANDI) Director Of Enterprise Architecture ID - PIAYA L Lab Interpretation Abnormal (test code = 60856-0) [facility] [id number] 15:52:11 Test Item Value Reference Range Interpretation Comments Protein, Total (test 6.8 See_Comment [Autom ated code = 2885-2) message] The system which generated this result transmit levi reference range : 6.0 - 8.3 gm/dL . The reference range was not u sed to interpret th is result as normal/abnormal . Albumin (test code = 2.6 g/dL 3.5-5.0 L 32484-3) Total Bilirubin (test 0.3 mg/dL 0.2-1.2 code = 1974-05) Bilirubin, Direct 0.2 mg/dL 0.1-0.5 (test code = 1967-) Alkaline Phosphatase 90 U/L 40-150 (test code = 6768-6) AST (test code = 17 U/L 1919-8) ALT (test code = 11 U/L 1742-6) BRANDI (test code = BRANDI) Director Of Enterprise Architecture ID - PIAYA L Lab Interpretation Abnormal (test code = 29543-0) [facility] [id number] 15:52:11 Test Item Value Reference Range Interpretation Comments Protein, Total (test 6.8 See_Comment [Autom ated code = 2885-2) message] The system which generated this result transmit levi reference range : 6.0 - 8.3 gm/dL . The reference range was not u sed to interpret th is result as normal/abnormal . Albumin (test code = 2.6 g/dL 3.5-5.0 L 40829-6) Total Bilirubin (test 0.3 mg/dL 0.2-1.2 code = 1974-05) Bilirubin, Direct 0.2 mg/dL 0.1-0.5 (test code = 1967-10) Alkaline Phosphatase 90 U/L 40-150 (test code = 6768-6) AST (test code = 17 U/L 1919-8) ALT (test code = 11 U/L 1742-6) BRANDI (test code = BRANDI) Director Of Enterprise Architecture ID - PIAYA L Lab Interpretation Abnormal (test code = 54632-4) [facility] [id number] 15:52:11 Test Item Value Reference Range Interpretation Comments Protein, Total (test 6.8 See_Comment [Autom ated code = 2885-2) message] The system which generated this result transmit levi reference range : 6.0 - 8.3 gm/dL . The reference range was not u sed to interpret th is result as normal/abnormal . Albumin (test code = 2.6 g/dL 3.5-5.0 L 53748-3) Total Bilirubin (test 0.3 mg/dL 0.2-1.2 code = 1974-) Bilirubin, Direct 0.2 mg/dL 0.1-0.5 (test code = 1967-10) Alkaline Phosphatase 90 U/L 40-150 (test code = 6768-6) AST (test code = 17 U/L 5-34 1920-8) ALT (test code = 11 U/L 655 1742-6) BRANDI (test code = BRANDI) Director Of Enterprise Architecture ID - PIAYA L Lab Interpretation Abnormal (test code = 63917-1) [facility] [id number] 15:52:11 Test Item Value Reference Range Interpretation Comments Protein, Total (test 6.8 See_Comment [Autom ated code = 2885-2) message] The system which generated this result transmit levi reference range : 6.0 - 8.3 gm/dL . The reference range was not u sed to interpret th is result as normal/abnormal . Albumin (test code = 2.6 g/dL 3.5-5.0 L 74616-0) Total Bilirubin (test 0.3 mg/dL 0.2-1.2 code = 1974-05) Bilirubin, Direct 0.2 mg/dL 0.1-0.5 (test code = 1967-) Alkaline Phosphatase 90 U/L 40-150 (test code = 6768-6) AST (test code = 17 U/L 5-34 1920-8) ALT (test code = 11 U/L 655 1742-6) BRANDI (test code = BRANDI) Director Of Enterprise Architecture ID - PIAYA L Lab Interpretation Abnormal (test code = 67226-8) [facility] [id number] 15:52:11 Test Item Value Reference Range Interpretation Comments Protein, Total (test 6.8 See_Comment [Autom ated code = 2885-2) message] The system which generated this result transmit levi reference range : 6.0 - 8.3 gm/dL . The reference range was not u sed to interpret th is result as normal/abnormal . Albumin (test code = 2.6 g/dL 3.5-5.0 L 34507-1) Total Bilirubin (test 0.3 mg/dL 0.2-1.2 code = 1974-) Bilirubin, Direct 0.2 mg/dL 0.1-0.5 (test code = 1967-7) Alkaline Phosphatase 90 U/L 40-150 (test code = 6768-6) AST (test code = 17 U/L 5-34 1920-8) ALT (test code = 11 U/L 655 1742-6) BRANDI (test code = BRANDI) Director Of Enterprise Architecture ID - PIAYA L Lab Interpretation Abnormal (test code = 99371-2) [facility] [id number] 15:52:11 Test Item Value Reference Range Interpretation Comments Protein, Total (test 6.8 See_Comment [Autom ated code = 2885-2) message] The system which generated this result transmit levi reference range : 6.0 - 8.3 gm/dL . The reference range was not u sed to interpret th is result as normal/abnormal . Albumin (test code = 2.6 g/dL 3.5-5.0 L 53747-6) Total Bilirubin (test 0.3 mg/dL 0.2-1.2 code = 1974-05) Bilirubin, Direct 0.2 mg/dL 0.1-0.5 (test code = 1967-10) Alkaline Phosphatase 90 U/L 40-150 (test code = 6768-6) AST (test code = 17 U/L 1919-8) ALT (test code = 11 U/L 1742-6) BRANDI (test code = BRANDI) Director Of Enterprise Architecture ID - PIAYA L Lab Interpretation Abnormal (test code = 25355-3) [facility] [id number] 15:52:11 Test Item Value Reference Range Interpretation Comments Protein, Total (test 6.8 See_Comment [Autom ated code = 2885-2) message] The system which generated this result transmit levi reference range : 6.0 - 8.3 gm/dL . The reference range was not u sed to interpret th is result as normal/abnormal . Albumin (test code = 2.6 g/dL 3.5-5.0 L 83517-5) Total Bilirubin (test 0.3 mg/dL 0.2-1.2 code = 1974-) Bilirubin, Direct 0.2 mg/dL 0.1-0.5 (test code = 1967-) Alkaline Phosphatase 90 U/L 40-150 (test code = 6768-6) AST (test code = 17 U/L 5-34 1920-8) ALT (test code = 11 U/L 6-55 1742-6) BRANDI (test code = BRANDI) Director Of Enterprise Architecture ID - PIAYA L Lab Interpretation Abnormal (test code = 63399-7) [facility] [id number] 15:52:11 Test Item Value Reference Range Interpretation Comments Protein, Total (test 6.8 See_Comment [Autom ated code = 2885-2) message] The system which generated this result transmit levi reference range : 6.0 - 8.3 gm/dL . The reference range was not u sed to interpret th is result as normal/abnormal . Albumin (test code = 2.6 g/dL 3.5-5.0 L 52730-2) Total Bilirubin (test 0.3 mg/dL 0.2-1.2 code = 1975-2) Bilirubin, Direct 0.2 mg/dL 0.1-0.5 (test code = 1968-7) Alkaline Phosphatase 90 U/L 40-150 (test code = 6768-6) AST (test code = 17 U/L 5-34 1920-8) ALT (test code = 11 U/L 6-55 1742-6) BRANDI (test code = BRANDI) Director Of Enterprise Architecture ID - PIAYA L Lab Interpretation Abnormal (test code = 43921-6) [facility] [id number] 15:52:11 Test Item Value Reference Range Interpretation [...] = 17 U/L 5-34 353) ALT (SGPT) (BEAKER) (test code = 11 U/L 6-55 347) Director Of Enterprise Architecture ID - PIAYA LHeparin [id number] 12:21:31 Test Item Value Reference Range Interpretation Comments Heparin Ab (test code Negative Negative = 3267-2) Heparin Antibody 0.247 <0.400 Optical Density (test code = 2659) 4T Total Score (test 4 code = 2661) BRANDI (test code = BRANDI) Probability of HIT based on scoring system: 6-8 = High probability; 4-5 = intermediate probability; 0-3 = low probability [facility] [id number] 12:21:31 Test Item Value Reference Range Interpretation Comments Heparin Ab (test code Negative Negative = 3267-2) Heparin Antibody 0.247 <0.400 Optical Density (test code = 2659) 4T Total Score (test 4 code = 2661) BRANDI (test code = BRANDI) Probability of HIT based on scoring system: 6-8 = High probability; 4-5 = intermediate probability; 0-3 = low probability [facility] [id number] 12:21:31 Test Item Value Reference Range Interpretation Comments Heparin Ab (test code Negative Negative = 3267-2) Heparin Antibody 0.247 <0.400 Optical Density (test code = 2659) 4T Total Score (test 4 code = 2661) BRANDI (test code = BRANDI) Probability of HIT based on scoring system: 6-8 = High probability; 4-5 = intermediate probability; 0-3 = low probability [facility] [id number] 12:21:31 Test Item Value Reference Range Interpretation Comments Heparin Ab (test code Negative Negative = 3267-2) Heparin Antibody 0.247 <0.400 Optical Density (test code = 2659) 4T Total Score (test 4 code = 2661) BRANDI (test code = BRANDI) Probability of HIT based on scoring system: 6-8 = High probability; 4-5 = intermediate probability; 0-3 = low probability [facility] [id number] 12:21:31 Test Item Value Reference Range Interpretation Comments Heparin Ab (test code Negative Negative = 3267-2) Heparin Antibody 0.247 <0.400 Optical Density (test code = 2659) 4T Total Score (test 4 code = 2661) BRANDI (test code = BRANDI) Probability of HIT based on scoring system: 6-8 = High probability; 4-5 = intermediate probability; 0-3 = low probability [facility] [id number] 12:21:31 Test Item Value Reference Range Interpretation Comments Heparin Ab (test code Negative Negative = 3267-2) Heparin Antibody 0.247 <0.400 Optical Density (test code = 2659) 4T Total Score (test 4 code = 2661) BRANDI (test code = BRANDI) Probability of HIT based on scoring system: 6-8 = High probability; 4-5 = intermediate probability; 0-3 = low probability [facility] [id number] 12:21:31 Test Item Value Reference Range Interpretation Comments Heparin Ab (test code Negative Negative = 3267-2) Heparin Antibody 0.247 <0.400 Optical Density (test code = 2659) 4T Total Score (test 4 code = 2661) BRANDI (test code = BRANDI) Probability of HIT based on scoring system: 6-8 = High probability; 4-5 = intermediate probability; 0-3 = low probability [facility] [id number] 12:21:31 Test Item Value Reference Range Interpretation Comments Heparin Ab (test code Negative Negative = 3267-2) Heparin Antibody 0.247 <0.400 Optical Density (test code = 2659) 4T Total Score (test 4 code = 2661) BRANDI (test code = BRANDI) Probability of HIT based on scoring system: 6-8 = High probability; 4-5 = intermediate probability; 0-3 = low probability [facility] [id number] 12:21:31 Test Item Value Reference Range Interpretation Comments Heparin Ab (test code Negative Negative = 3267-2) Heparin Antibody 0.247 <0.400 Optical Density (test code = 2659) 4T Total Score (test 4 code = 2661) BRANDI (test code = BRANDI) Probability of HIT based on scoring system: 6-8 = High probability; 4-5 = intermediate probability; 0-3 = low probability [facility] [id number] 12:21:31 Test Item Value Reference Range Interpretation Comments Heparin Ab (test code Negative Negative = 3267-2) Heparin Antibody 0.247 <0.400 Optical Density (test code = 2659) 4T Total Score (test 4 code = 2661) BRANDI (test code = BRANDI) Probability of HIT based on scoring system: 6-8 = High probability; 4-5 = intermediate probability; 0-3 = low probability [facility] [id number] 12:21:31 Test Item Value Reference Range Interpretation Comments Heparin Ab (test code Negative Negative = 3267-2) Heparin Antibody 0.247 <0.400 Optical Density (test code = 2659) 4T Total Score (test 4 code = 2661) BRANDI (test code = BRANDI) Probability of HIT based on scoring system: 6-8 = High probability; 4-5 = intermediate probability; 0-3 = low probability [facility] [id number] 12:21:31 Test Item Value Reference Range Interpretation Comments Heparin Ab (test code Negative Negative = 3267-2) Heparin Antibody 0.247 <0.400 Optical Density (test code = 2659) 4T Total Score (test 4 code = 2661) BRANDI (test code = BRANDI) Probability of HIT based on scoring system: 6-8 = High probability; 4-5 = intermediate probability; 0-3 = low probability [facility] [id number] 12:21:31 Test Item Value Reference Range Interpretation Comments HEPARIN ANTIBODY (BEAKER) (test code Negative Negative = 646) HEPARIN ANTIBODY OD (BEAKER) (test 0.247 <0.400 code = 2659) 4T TOTAL SCORE (BEAKER) (test code = 4 2661) Probability of HIT based on scoring system: 6-8 = High probability; 4-5 = intermediate probability; 0-3 = [facility] [id number] 08:07:00 Test Item Value Reference Range Interpretation Comments ABO Grouping (test code = 2588) O Rh Factor (test code = 2589) [facility], [id number] 08:07:00 Test Item Value Reference Range Interpretation Comments ABO Grouping (test code = 2588) O Rh Factor (test code = 2589) [facility], [id number] 08:07:00 Test Item Value Reference Range Interpretation Comments ABO Grouping (test code = 2588) O Rh Factor (test code = 2589) [facility], [id number] 08:07:00 Test Item Value Reference Range Interpretation Comments ABO Grouping (test code = 2588) O Rh Factor (test code = 2589) [facility], [id number] 08:07:00 Test Item Value Reference Range Interpretation Comments ABO Grouping (test code = 2588) O Rh Factor (test code = 2589) [facility], [id number] 08:07:00 Test Item Value Reference Range Interpretation Comments ABO Grouping (test code = 2588) O Rh Factor (test code = 2589) [facility], [id number] 08:07:00 Test Item Value Reference Range Interpretation Comments ABO Grouping (test code = 2588) O Rh Factor (test code = 2589) [facility], urijsn6401-40-04 08:07:00 Test Item Value Reference Range Interpretation Comments ABO Grouping (test code = 2588) O Rh Factor (test code = 2589) [facility], [id number] 08:07:00 Test Item Value Reference Range Interpretation Comments ABO Grouping (test code = 2588) O Rh Factor (test code = 2589) [facility], [id number] 08:07:00 Test Item Value Reference Range Interpretation Comments ABO Grouping (test code = 2588) O Rh Factor (test code = 2589) [facility], [id number] 08:07:00 Test Item Value Reference Range Interpretation Comments ABO Grouping (test code = 2588) O Rh Factor (test code = 2589) [facility], [id number] 08:07:00 Test Item Value Reference Range Interpretation Comments ABO Grouping (test code = 2588) O Rh Factor (test code = 2589) [facility] [id number] 05:19:52 Test Item Value Reference Range Interpretation [...] S NOT APPLICABLE FOR DIALYSIS PATIEN TS. Director Of Enterprise Architecture ID - BURKEKEZIA [id number] 05:09:04 Test Item Value Reference Range Interpretation Comments PHOSPHORUS (BEAKER) (test code = 4.1 mg/dL 2.3-4.7 604) Director Of Enterprise Architecture ID - LIANA [id number] 05:09:03 Test Item Value Reference Range Interpretation Comments MAGNESIUM (BEAKER) (test code = 2.0 mg/dL 1.6-2.6 627) Director Of Enterprise Architecture ID - BURKEKEZIA LPT/[id number] 04:53:34 Test Item Value Reference Interpretation Comments Range Protime (test code = 13.7 See_Comment [Autom ated 2922-2) message] The system which generated this result transmitted reference range : 11.9 - 14.2 seconds. The reference range was not used to interpret this result as normal/abnormal . INR (test code = 1.07 See_Comment [Automated 0346-6) message] The system which generated this result transmitted reference range : <=5.90. The reference range was not used to interpret this result as normal/abnormal . PTT (test code = 32.5 See_Comment [Automated 75901-1) message] The system which generated this result [...] valves. Lab Interpretation Normal (test code = 05776-3) [facility]/[id number] 04:53:34 Test Item Value Reference Interpretation Comments [...] PTT (test code = 32.5 See_Comment [Automated 71620-3) message] The system which generated this result [...] valves. Lab Interpretation Normal (test code = 51679-6) [facility]/[id number] 04:53:34 Test Item Value Reference Interpretation Comments [...] PTT (test code = 32.5 See_Comment [Automated 36297-5) message] The system which generated this result [...] valves. Lab Interpretation Normal (test code = 02397-1) [facility]/[id number] 04:53:34 Test Item Value Reference Interpretation Comments [...] PTT (test code = 32.5 See_Comment [Automated 82194-4) message] The system which generated this result [...] valves. Lab Interpretation Normal (test code = 64965-5) [facility]/[id number] 04:53:34 Test Item Value Reference Interpretation Comments [...] PTT (test code = 32.5 See_Comment [Automated 12097-5) message] The system which generated this result [...] valves. Lab Interpretation Normal (test code = 34560-1) [facility]/[id number] 04:53:34 Test Item Value Reference Interpretation Comments [...] PTT (test code = 32.5 See_Comment [Automated 96823-6) message] The system which generated this result [...] valves. Lab Interpretation Normal (test code = 86175-5) [facility]/sQLK6759-06-04 04:53:34 Test Item Value Reference Interpretation Comments [...] PTT (test code = 32.5 See_Comment [Automated 69835-3) message] The system which generated this result [...] valves. Lab Interpretation Normal (test code = 67217-5) [facility]/[id number] 04:53:34 Test Item Value Reference Interpretation Comments [...] PTT (test code = 32.5 See_Comment [Automated 56734-2) message] The system which generated this result [...] valves. Lab Interpretation Normal (test code = 74472-9) [facility]/jNDU9895-04-20 04:53:34 Test Item Value Reference Interpretation Comments [...] PTT (test code = 32.5 See_Comment [Automated 16768-2) message] The system which generated this result [...] valves. Lab Interpretation Normal (test code = 92952-9) [facility]/[id number] 04:53:34 Test Item Value Reference Interpretation Comments [...] PTT (test code = 32.5 See_Comment [Automated 42657-0) message] The system which generated this result [...] valves. Lab Interpretation Normal (test code = 42074-4) [facility]/[id number] 04:53:34 Test Item Value Reference Interpretation Comments [...] PTT (test code = 32.5 See_Comment [Automated 06572-7) message] The system which generated this result [...] valves. Lab Interpretation Normal (test code = 94634-6) [facility]/[id number] 04:53:34 Test Item Value Reference Interpretation Comments [...] PTT (test code = 32.5 See_Comment [Automated 27973-8) message] The system which generated this result [...] valves. Lab Interpretation Normal (test code = 60575-2) [facility]/[id number] 04:53:34 Test Item Value Reference Range Interpretation [...] mechanical heart valves.CBC W/PLT COUNT & AUTO [id number] 04:46:52 Test Item Value Reference Range Interpretation [...] PERCENT (BEAKER) (test code = 2801) POCT-GLUCOSE [id number] 11:21:11 Test Item Value Reference Range Interpretation Comments POC-GLUCOSE METER 204 mg/dL 70-110 H : TESTED A T [facility] 6720 (BEAKER) (test code = [facility], 1538) 97493: Director Of Enterprise Architecture/Techni kelle ID = [id number] for Ag uilar Meeta POCT-GLUCOSE [id number] 07:42:50 Test Item Value Reference Range Interpretation Comments POC-GLUCOSE METER 226 mg/dL 70-110 H : TESTED A T [facility] 6720 (BEAKER) (test code = [facility], 1538) 14249: Director Of Enterprise Architecture/Techni kelle ID = [id number] for Ag uilar, Meeta BASIC METABOLIC [id number] 05:13:30 Test Item Value Reference Range Interpretation [...] S NOT APPLICABLE FOR DIALYSIS PATIEN TS. Director Of Enterprise Architecture ID - PIKEZIA [id number] 05:11:53 Test Item Value Reference Range Interpretation Comments PHOSPHORUS (BEAKER) (test code = 3.3 mg/dL 2.3-4.7 604) Director Of Enterprise Architecture ID - LIANA [id number] 05:11:52 Test Item Value Reference Range Interpretation Comments MAGNESIUM (BEAKER) (test code = 2.0 mg/dL 1.6-2.6 627) Director Of Enterprise Architecture ID - LIANA LCBC W/PLT COUNT & AUTO [id number] 04:23:17 Test Item Value Reference Range Interpretation [...] PERCENT (BEAKER) (test code = 2801) POCT-GLUCOSE [id number] 17:21:48 Test Item Value Reference Range Interpretation Comments POC-GLUCOSE METER 209 mg/dL 70-110 H : TESTED A T [facility] 6720 ([place]) (test code = [facility], 153) 15963: Director Of Enterprise Architecture/Techni kelle ID = [id number] for ANTELMO HOLGUIN, PADMINI POCT-GLUCOSE [id number] 12:56:45 Test Item Value Reference Range Interpretation Comments POC-GLUCOSE METER 81 mg/dL 70-110 : TESTED A T [facility] 6720 ([place]) (test code = [facility], 153) 14505: Director Of Enterprise Architecture/Techni kelle ID = [id number] for MARY SKY, PADMINI Djeokygd0693-57-82 09:21:04 Test Item Value Reference Range Interpretation Comments Ferritin (test code = 1418.54 ng/mL 5.00-275.00 H 2276-4) BRANDI (test code = BRANDI) Director Of Enterprise Architecture ID - HIEN M Lab Interpretation (test Abnormal code = 15012-7) [facility] 09:21:04 Test Item Value Reference Range Interpretation Comments Ferritin (test code = 1418.54 ng/mL 5.00-275.00 H 2276-4) BRANDI (test code = BRANDI) Director Of Enterprise Architecture ID - HIEN M Lab Interpretation (test Abnormal code = 29399-2) [facility] 09:21:04 Test Item Value Reference Range Interpretation Comments Ferritin (test code = 1418.54 ng/mL 5.00-275.00 H 2276-4) BRANDI (test code = BRANDI) Director Of Enterprise Architecture ID - HIEN M Lab Interpretation (test Abnormal code = 27574-2) [facility]2022-03-12 09:21:04 Test Item Value Reference Range Interpretation Comments Ferritin (test code = 1418.54 ng/mL 5.00-275.00 H 2276-4) BRANDI (test code = BRANDI) Director Of Enterprise Architecture ID - HIEN M Lab Interpretation (test Abnormal code = 11642-6) [facility] 09:21:04 Test Item Value Reference Range Interpretation Comments Ferritin (test code = 1418.54 ng/mL 5.00-275.00 H 2276-4) BRANDI (test code = BRANDI) Director Of Enterprise Architecture ID - HIEN M Lab Interpretation (test Abnormal code = 92999-0) [facility] 09:21:04 Test Item Value Reference Range Interpretation Comments Ferritin (test code = 1418.54 ng/mL 5.00-275.00 H 2276-4) BRANDI (test code = BRANDI) Director Of Enterprise Architecture ID - HIEN M Lab Interpretation (test Abnormal code = 73941-8) [facility] 09:21:04 Test Item Value Reference Range Interpretation Comments Ferritin (test code = 1418.54 ng/mL 5.00-275.00 H 2276-4) BRANDI (test code = BRANDI) Director Of Enterprise Architecture ID - HIEN M Lab Interpretation (test Abnormal code = 99646-6) [facility] 09:21:04 Test Item Value Reference Range Interpretation Comments Ferritin (test code = 1418.54 ng/mL 5.00-275.00 H 2276-4) BRANDI (test code = BRANDI) Director Of Enterprise Architecture ID - HIEN M Lab Interpretation (test Abnormal code = 15530-7) [facility]2022-03-12 09:21:04 Test Item Value Reference Range Interpretation Comments Ferritin (test code = 1418.54 ng/mL 5.00-275.00 H 2276-4) BRANDI (test code = BRANDI) Director Of Enterprise Architecture ID - HIEN M Lab Interpretation (test Abnormal code = 26715-2) [facility]2022-03-12 09:21:04 Test Item Value Reference Range Interpretation Comments Ferritin (test code = 1418.54 ng/mL 5.00-275.00 H 2276-4) BRANDI (test code = BRANDI) Director Of Enterprise Architecture ID - HIEN M Lab Interpretation (test Abnormal code = 78846-2) [facility]2022-03-12 09:21:04 Test Item Value Reference Range Interpretation Comments Ferritin (test code = 1418.54 ng/mL 5.00-275.00 H 2276-4) BRANDI (test code = BRANDI) Director Of Enterprise Architecture ID - HIEN M Lab Interpretation (test Abnormal code = 97949-8) [facility]2022-03-12 09:21:04 Test Item Value Reference Range Interpretation Comments Ferritin (test code = 1418.54 ng/mL 5.00-275.00 H 2276-4) BRANDI (test code = BRANDI) Director Of Enterprise Architecture ID - HIEN M Lab Interpretation (test Abnormal code = 53518-2) [facility]2022-03-12 09:21:04 Test Item Value Reference Range Interpretation Comments FERRITIN (BEAKER) (test code = 1418.54 ng/mL 5.00-275.00 H 361) Director Of Enterprise Architecture NORAH Banegas HIEN Cyrus, TIBC, % sat. (without ferritin)2021-06-13 09:01:39 Test Item Value Reference Range Interpretation Comments Iron (test code = 2498-4) 75.0 ug/dL 40.0-160.0 TIBC (test code = 2500-7) 145 ug/dL 250-450 L Iron % Saturation (test 52 % 20-55 code = 2502-3) BRANDI (test code = BRANDI) Director Of Enterprise Architecture ID - HIEN M Lab Interpretation (test Abnormal code = 73382-8) [facility], TIBC, % sat. (without ferritin)2021-06-13 09:01:39 Test Item Value Reference Range Interpretation Comments Iron (test code = 2498-4) 75.0 ug/dL 40.0-160.0 TIBC (test code = 2500-7) 145 ug/dL 250-450 L Iron % Saturation (test 52 % 20-55 code = 2502-3) BRANDI (test code = BRANDI) Director Of Enterprise Architecture ID - HIEN M Lab Interpretation (test Abnormal code = 38265-5) [facility], TIBC, % sat. (without ferritin)2021-06-13 09:01:39 Test Item Value Reference Range Interpretation Comments Iron (test code = 2498-4) 75.0 ug/dL 40.0-160.0 TIBC (test code = 2500-7) 145 ug/dL 250-450 L Iron % Saturation (test 52 % 20-55 code = 2502-3) BRANDI (test code = BRANDI) Director Of Enterprise Architecture ID - HIEN M Lab Interpretation (test Abnormal code = 79720-7) [facility], TIBC, % sat. (without ferritin)2021-06-13 09:01:39 Test Item Value Reference Range Interpretation Comments Iron (test code = 2498-4) 75.0 ug/dL 40.0-160.0 TIBC (test code = 2500-7) 145 ug/dL 250-450 L Iron % Saturation (test 52 % 20-55 code = 2502-3) BRANDI (test code = BRANDI) Director Of Enterprise Architecture ID - HIEN M Lab Interpretation (test Abnormal code = 88372-8) [facility], TIBC, % sat. (without ferritin)2021-06-13 09:01:39 Test Item Value Reference Range Interpretation Comments Iron (test code = 2498-4) 75.0 ug/dL 40.0-160.0 TIBC (test code = 2500-7) 145 ug/dL 250-450 L Iron % Saturation (test 52 % 20-55 code = 2502-3) BRANDI (test code = BRANDI) Director Of Enterprise Architecture ID - HIEN M Lab Interpretation (test Abnormal code = 08892-0) [facility], TIBC, % sat. (without ferritin)2021-06-13 09:01:39 Test Item Value Reference Range Interpretation Comments Iron (test code = 2498-4) 75.0 ug/dL 40.0-160.0 TIBC (test code = 2500-7) 145 ug/dL 250-450 L Iron % Saturation (test 52 % 20-55 code = 2502-3) BRANDI (test code = BRANDI) Director Of Enterprise Architecture ID - HIEN M Lab Interpretation (test Abnormal code = 82536-3) [facility], TIBC, % sat. (without ferritin)2021-06-13 09:01:39 Test Item Value Reference Range Interpretation Comments Iron (test code = 2498-4) 75.0 ug/dL 40.0-160.0 TIBC (test code = 2500-7) 145 ug/dL 250-450 L Iron % Saturation (test 52 % 20-55 code = 2502-3) BRANDI (test code = BRANDI) Director Of Enterprise Architecture ID - HIEN M Lab Interpretation (test Abnormal code = 97588-6) [facility], TIBC, % sat. (without ferritin)2021-06-13 09:01:39 Test Item Value Reference Range Interpretation Comments Iron (test code = 2498-4) 75.0 ug/dL 40.0-160.0 TIBC (test code = 2500-7) 145 ug/dL 250-450 L Iron % Saturation (test 52 % 20-55 code = 2502-3) BRANDI (test code = BRANDI) Director Of Enterprise Architecture ID - HIEN M Lab Interpretation (test Abnormal code = 22927-4) [facility], TIBC, % sat. (without ferritin)2021-06-13 09:01:39 Test Item Value Reference Range Interpretation Comments Iron (test code = 2498-4) 75.0 ug/dL 40.0-160.0 TIBC (test code = 2500-7) 145 ug/dL 250-450 L Iron % Saturation (test 52 % 20-55 code = 2502-3) BRANDI (test code = BRANDI) Director Of Enterprise Architecture ID - HIEN M Lab Interpretation (test Abnormal code = 63723-0) [facility], TIBC, % sat. (without ferritin)2021-06-13 09:01:39 Test Item Value Reference Range Interpretation Comments Iron (test code = 2498-4) 75.0 ug/dL 40.0-160.0 TIBC (test code = 2500-7) 145 ug/dL 250-450 L Iron % Saturation (test 52 % 20-55 code = 2502-3) BRANDI (test code = BRANDI) Director Of Enterprise Architecture ID - HIEN Hernandes Lab Interpretation (test Abnormal code = 54733-2) [facility], TIBC, % sat. (without ferritin)2021-06-13 09:01:39 Test Item Value Reference Range Interpretation Comments Iron (test code = 2498-4) 75.0 ug/dL 40.0-160.0 TIBC (test code = 2500-7) 145 ug/dL 250-450 L Iron % Saturation (test 52 % 20-55 code = 2502-3) BRANDI (test code = BRANDI) Director Of Enterprise Architecture ID - HIEN Hernandes Lab Interpretation (test Abnormal code = 17817-6) [facility], TIBC, % sat. (without ferritin)2021-06-13 09:01:39 Test Item Value Reference Range Interpretation Comments Iron (test code = 2498-4) 75.0 ug/dL 40.0-160.0 TIBC (test code = 2500-7) 145 ug/dL 250-450 L Iron % Saturation (test 52 % 20-55 code = 2502-3) BRANDI (test code = BRANDI) Director Of Enterprise Architecture ID - HIEN Hernandes Lab Interpretation (test Abnormal code = 63150-7) [facility], TIBC, % SAT. (WITHOUT FERRITIN)2021-06-13 09:01:39 Test Item Value Reference Range Interpretation Comments IRON (BEAKER) (test code = 547) 75.0 ug/dL 40.0-160.0 TOTAL IRON BINDING CAPACITY 145 ug/dL 250-450 L (BEAKER) (test code = 769) IRON % SATURATION (2) (BEAKER) 52 % 20-55 (test code = 2590) Director Of Enterprise Architecture NOARH STANFORD MPOCT-GLUCOSE [id number] 08:51:07 Test Item Value Reference Range Interpretation Comments POC-GLUCOSE METER 106 mg/dL 70-110 : TESTED A T [facility] (BEAKER) (test code = [place], 1538) [address]: Director Of Enterprise Architecture/Techni kelle ID = [id number] for PADMINI ALMANZAR BASIC METABOLIC [id number] 04:21:54 Test Item Value Reference Range Interpretation [...] S NOT APPLICABLE FOR DIALYSIS PATIEN TS. Director Of Enterprise Architecture ID - HIEN [id number] 04:17:34 Test Item Value Reference Range Interpretation Comments MAGNESIUM (BEAKER) (test code = 2.0 mg/dL 1.6-2.6 627) Director Of Enterprise Architecture ID - HIEN [id number] 04:17:34 Test Item Value Reference Range Interpretation Comments PHOSPHORUS (BEAKER) (test code = 3.1 mg/dL 2.3-4.7 604) Director Of Enterprise Architecture ID - HIEN MCBC W/PLT COUNT & AUTO [id number] 03:49:10 Test Item Value Reference Range Interpretation [...] PERCENT (BEAKER) (test code = 2801) SARS-COV2/RT-PCR ([facility])2021-06-13 02:28:08 Test Item Value Reference Range Interpretation Comments SARS-COV2/RT-PCR (test code = Negative Negative 0150805) Negative result for this test determines that [...] under Section 564(g) of the Act.Testing was performed using t ScaleDB SARS-CoV-2 assay.Fact Sheet for Healthcare Providers:https://www.molecular.brown/ct/RT SARS-CoV-2 HCP Fact Sheet 51- 782688.pdfFact Sheet for Healthcare Patients:https://www.molecular.brown/ct/RT SARS-CoV-2 Patient Fact Sheet EN 51-718538U5.pdfPOCT-GLUCOSE [id number] 02:01:02 Test Item Value Reference Range Interpretation Comments POC-GLUCOSE METER 98 mg/dL 70-110 : TESTED A T [facility] (AKASH) (test code = [place], 1538) [address]: Director Of Enterprise Architecture/Techni kelle ID = [id number] for SREEKANTH ROSS POCT-GLUCOSE [id number] 02:00:06 Test Item Value Reference Range Interpretation Comments POC-GLUCOSE METER 151 mg/dL 70-110 H : TESTED A T [facility] (BEAKER) (test code = [place], 1538) [address]: Director Of Enterprise Architecture/Techni kelle ID = [id number] for ALINE ROWE BLOOD [id number] 23:01:20 Test Item Value Reference Range Interpretation Comments CULTURE (BEAKER) (test No growth in 5 days code = 1095) BLOOD [id number] 23:01:19 Test Item Value Reference Range Interpretation Comments CULTURE (BEAKER) (test No growth in 5 days code = 1095) CT, BRAIN, WITHOUT [id number] 08:55:00Unlisted Reason for Exam - Click Yes and Enter Reason Below->No [facility] 1955 Sex: [...] is nonspecific but compatible with chronic microvascular is chemic disease. There is mild atherosclerotic calcification of the intracranial circulation. There is mild generalized sulcal prominence without hydrocephalus, midline shift, or apparent mass effect. There are no extra-axial fluid collections. The skull is intact. The visualized paranasal sinuses are well- aerated. IMPRESSION: Scattered right cerebral subarachnoid hemorrhage is grossly unchanged. Signed: Fadia Caineport Verified Date/Time: 06/12/2021 08:55:52 Reading Location: [facility] C013V Neuro Reading Room POCT-GLUCOSE [id number] 07:42:49 Test Item Value Reference Range Interpretation Comments POC-GLUCOSE METER 113 mg/dL 70-110 H : TESTED A T [facility] 67[address] (BEAKER) (test code = [facility], 1538) [address]: Director Of Enterprise Architecture/Techni kelle ID = [id number] for Sheryl Enciso POCT-GLUCOSE [id number] 07:42:05 Test Item Value Reference Range Interpretation Comments POC-GLUCOSE METER 131 mg/dL 70-110 H : TESTED A T [facility] 67[address] (BEAKER) (test code = [facility], 1538) [address]: Director Of Enterprise Architecture/Techni kelle ID = [id number] for JI MONTAÑO POCT-GLUCOSE [id number] 07:32:16 Test Item Value Reference Range Interpretation Comments POC-GLUCOSE METER 127 mg/dL 70-110 H : TESTED A T [facility] 67[address] (BEAKER) (test code = [facility], 1538) [address]: Director Of Enterprise Architecture/Techni kelle ID = [id number] for GURINDER VILLA CT, CTANGIO [id number] 03:03:00Reason for exam:->Symptoms onset less than 6 hours and NIHSS 6 or greater [facility] 1955 Sex: FFINAL REPORT CLINICAL HISTORY: Unlisted Reason for ExamSymptoms onset less than 6 hours and NIHSS 6 or greater TECHNIQUE: Contiguous contrast-enhanced axial images through the neck followed by axial images through the head with coronal and sagittal reformations to assess the arterialcirculation. 3-D reconstructions were performed using a volume rendered technique separately on a workstation. This exam was performed according to the departmental dose optimization program which includes automated exposure control, adjustment of the mA and/or kV according to the patient size, and/oruse of an iterative reconstruction technique. COMPARISON: None [...] posterior to indicating artery. The bilateral posterior cerebral and posterior communicating arteries are patent. Atherosclerotic calcifications of the bilateral carotid siphonsresulting in moderate stenosis of the supraclinoid segment. Bilateral anterior and middle cerebral arteries are patent.The major intradural venous sinuses are patent. The carotid arteries in the neck are patent including their bifurcations. There is 40% stenosis of the proximal left internal carotid artery by NASCET criteria. Atherosclerotic calcifications of the right carotid bifurcation however no flow limiting stenosis. The vertebral arteries in the neck are patent including their origins. There are dorsal spondylitic changes in the cervical spine. Collapse of the C6 vertebral body with erosive endplate changes of C6-C7, age indeterminate, however no significant prevertebral soft tissue changes. Postsurgical changes of a median sternotomy. There are scattered subcentimeter lymph nodes in the neck. Large right pleural effusion. Intralobular septal thickening in the bilateral lungs suggestive of interstitial pulmonary edema. Postsurgical changes of a prior CABG. Right chest wall pacer device with leads coursing below the inferior margin of the film. IMPRESSION: No evidence of a [place] of [place] proximal branch vessel occlusion or intracranial aneurysm. Intracranial atherosclerosis worse in the carotid siphons were there is moderate stenosis. No evidence of hemodynamically significant stenosis in the right cervical carotid or vertebral arteries by NASCET criteria. There is 40% stenosis of the proximal left internal carotid artery by NASCET criteria. Collapse of the C6 vertebral body with er osive endplate changes of C6-C7, age indeterminate, however no significant prevertebral soft tissue changes. Correlate clinically and consider further evaluation with MRI if indicated. Large right pleural effusion and interstitial pulmonary edema. Signed: Nikole Baron MDReport Verified Date/Time: 06/12/2021 03:03:56 CT, CAROTID, [id number] 03:03:00Reason for exam:- >Symptoms onset less than 6 hours and NIHSS 6 or greater [facility] : 1955 Sex: FFINAL REPORT CLINICAL HISTORY: Unlisted Reason for ExamSymptoms onset less than 6 hours and NIHSS 6 or greater TECHNIQUE: Contiguous contrast-enhanced axial images through the neck followed by axial images through the head with coronal and sagittal reformations to assess the arterialcirculation. 3-D reconstructions were performed using a volume rendered technique separately on a workstation. This exam was performed according to the departmental dose optimization program which includes automated exposure control, adjustment of the mA and/or kV according to the patient size, and/oruse of an iterative reconstruction technique. COMPARISON: None [...] posterior to indicating artery. The bilateral posterior cerebral and posterior communicating arteries are patent. Atherosclerotic calcifications of the bilateral carotid siphonsresulting in moderate stenosis of the supraclinoid segment. Bilateral anterior and middle cerebral arteries are patent.The major intradural venous sinuses are patent. The carotid arteries in the neck are patent including their bifurcations. There is 40% stenosis of the proximal left internal carotid artery by NASCET criteria. Atherosclerotic calcifications of the right carotid bifurcation however no flow limiting stenosis. The vertebral arteries in the neck are patent including their origins. There are dorsal spondylitic changes in the cervical spine. Collapse of the C6 vertebral body with erosive endplate changes of C6-C7, age indeterminate, however no significant prevertebral soft tissue changes. Postsurgical changes of a median sternotomy. There are scattered subcentimeter lymph nodes in the neck. Large right pleural effusion. Intralobular septal thickening in the bilateral lungs suggestive of interstitial pulmonary edema. Postsurgical changes of a prior CABG. Right chest wall pacer device with leads coursing below the inferior margin of the film. IMPRESSION: No evidence of a [place] of [place] proximal branch vessel occlusion or intracranial aneurysm. Intracranial atherosclerosis worse in the carotid siphons were there is moderate stenosis. No evidence of hemodynamically significant stenosis in the right cervical carotid or vertebral arteries by NASCET criteria. There is 40% stenosis of the proximal left internal carotid artery by NASCET criteria. Collapse of the C6 vertebral body with er osive endplate changes of C6-C7, age indeterminate, however no significant prevertebral soft tissue changes. Correlate clinically and consider further evaluation with MRI if indicated. Large right pleural effusion and interstitial pulmonary edema. Signed: Nikole Baron Verified Date/Time: 06/12/2021 03:03:56 PROTHROMBIN TIME/[id number] 01:46:16 Test Item Value Reference Range Interpretation Comments PROTIME (BEAKER) 15.0 seconds 11.9-14.2 H (test code = 759) INR (BEAKER) (test 1.20 See_Comment [Automat ed message] code = 370) The system Awo[employer] generated this result transmitted ref erence range: <=5.90. The reference range was not used to int erpret this result as normal/abnormal . RECOMMENDED COUMADIN/WARFARIN INR THERAPY RANGESSTANDARD DOSE: 2.0 - 3.0 Includes: PROPHYLAXIS for venous thrombosis, systemic embolization; TREATMENT for venous thrombosis and/or pulmonary embolus.HIGH RISK: Target INR is 2.5-3.5 for patients with mechanical heart valves.CBC W/PLT COUNT & AUTO [id number] 01:45:34 Test Item Value Reference Range Interpretation [...] (test code = 2801) CT, BRAIN, WITHOUT [id number] 01:38:00Unlisted Reason for Exam - Click Yes and Enter Reason Below->No [facility] 1955 Sex: FFINAL REPORT CT Head without contrast CLINICAL HISTORY: Stroke suspected (Ped 0-18y) TECHNIQUE: Contiguous axial images through the head without contrast. This exam was performed according to the departmental dose optimization program which includes automated exposure control, adjustment of the mA and/or kV according to the patient size, and/or use of an iterative reconstruction technique. COMPARISON: None FINDINGS: There is no CT evidence of acute infarct . Scattered areas of subarachnoid hyperdensity consistent with trace subarachnoid hemorrhage within the right cerebral hemisphere. There is thin hyperdensity layering along the right aspect of the falx and right tentorial leaflet concerning for trace subdural hematoma. No significant mass effect on adjacent structures. No midline shift. There is periventricular and subcortical white matter hypodensity which is nonspecific butcompatible with chronic microvascular ischemic change. There are atherosclerotic calcifications of the intracranial circulation. There is generalized parenchymal volume loss without hydrocephalus . Basilar cisterns are patent. The skull is intact. The visualized paranasal sinuses are well-aerated. Intraorbital contents are unremarkable. IMPRESSION: No CT evidence of acute infarct. A subarachnoid hemor rhage in the right cerebral hemisphere. Trace subdural hematoma along the right aspect of the falx and right tentorial leaflet. NOTIFICATION: The significant results of this study were discussed with and acknowledged by in house neurology resident, by telephone on 06/12/2021 1:38 AM. Signed: Nikole Baron Verified Date/Time: 06/12/2021 01:38:35 High Sensitivity Troponin I ([facility] Only)2021-06-12 01:35:31 Test Item Value Reference Range Interpretation Comments Troponin I HS (test 231 pg/ml See_Comment H [Automa levi code = 98759-8) message] The system which generated this result transmitted reference range : <=17. The reference range was not used to interpret this result as normal/abnormal . BRANDI (test code = Director Of Enterprise Architecture ID - BRADNI) DBThe SELLING UNDERWRITER STAT High Sensitivity Troponin-I results should be used in conjunction with other diagnostic information such as ECG, clinical observations and information, and patient symptoms to aid in the diagnosis of NE. Lab Interpretation Abnormal (test code = 48369-2) [facility] 2021-06-12 01:35:31 Test Item Value Reference Range Interpretation Comments Troponin I HS (test 231 pg/ml See_Comment H [Automa levi code = 40766-8) message] The system which generated this result transmitted reference range : <=17. The reference range was not used to interpret this result as normal/abnormal . BRANDI (test code = Director Of Enterprise Architecture ID - BRANDI) DBThe SELLING UNDERWRITER STAT High Sensitivity Troponin-I results should be used in conjunction with other diagnostic information such as ECG, clinical observations and information, and patient symptoms to aid in the diagnosis of NE. Lab Interpretation Abnormal (test code = 40986-5) [facility] 2021-06-12 01:35:31 Test Item Value Reference Range Interpretation Comments Troponin I HS (test 231 pg/ml See_Comment H [Automa levi code = 07164-8) message] The system which generated this result transmitted reference range : <=17. The reference range was not used to interpret this result as normal/abnormal . BRANDI (test code = Director Of Enterprise Architecture ID - BRANDI) DBThe SELLING UNDERWRITER STAT High Sensitivity Troponin-I results should be used in conjunction with other diagnostic information such as ECG, clinical observations and information, and patient symptoms to aid in the diagnosis of NE. Lab Interpretation Abnormal (test code = 79378-2) [facility] 2021-06-12 01:35:31 Test Item Value Reference Range Interpretation Comments Troponin I HS (test 231 pg/ml See_Comment H [Automa levi code = 49515-6) message] The system which generated this result transmitted reference range : <=17. The reference range was not used to interpret this result as normal/abnormal . BRANDI (test code = Director Of Enterprise Architecture ID - BRANDI) DBThe SELLING UNDERWRITER STAT High Sensitivity Troponin-I results should be used in conjunction with other diagnostic information such as ECG, clinical observations and information, and patient symptoms to aid in the diagnosis of NE. Lab Interpretation Abnormal (test code = 87436-8) [facility] 2021-06-12 01:35:31 Test Item Value Reference Range Interpretation Comments Troponin I HS (test 231 pg/ml See_Comment H [Automa levi code = 94510-2) message] The system which generated this result transmitted reference range : <=17. The reference range was not used to interpret this result as normal/abnormal . BRANDI (test code = Director Of Enterprise Architecture ID - BRANDI) DBThe SELLING UNDERWRITER STAT High Sensitivity Troponin-I results should be used in conjunction with other diagnostic information such as ECG, clinical observations and information, and patient symptoms to aid in the diagnosis of NE. Lab Interpretation Abnormal (test code = 96098-6) [facility] 2021-06-12 01:35:31 Test Item Value Reference Range Interpretation Comments Troponin I HS (test 231 pg/ml See_Comment H [Automa levi code = 99225-6) message] The system which generated this result transmitted reference range : <=17. The reference range was not used to interpret this result as normal/abnormal . BRANDI (test code = Director Of Enterprise Architecture ID - BRANDI) DBThe SELLING UNDERWRITER STAT High Sensitivity Troponin-I results should be used in conjunction with other diagnostic information such as ECG, clinical observations and information, and patient symptoms to aid in the diagnosis of NE. Lab Interpretation Abnormal (test code = 74416-4) [facility] 2021-06-12 01:35:31 Test Item Value Reference Range Interpretation Comments Troponin I HS (test 231 pg/ml See_Comment H [Automa levi code = 23775-0) message] The system which generated this result transmitted reference range : <=17. The reference range was not used to interpret this result as normal/abnormal . BRANDI (test code = Director Of Enterprise Architecture ID - BRANDI) DBThe SELLING UNDERWRITER STAT High Sensitivity Troponin-I results should be used in conjunction with other diagnostic information such as ECG, clinical observations and information, and patient symptoms to aid in the diagnosis of NE. Lab Interpretation Abnormal (test code = 72397-6) [facility] 2021-06-12 01:35:31 Test Item Value Reference Range Interpretation Comments Troponin I HS (test 231 pg/ml See_Comment H [Automa levi code = 03993-6) message] The system which generated this result transmitted reference range : <=17. The reference range was not used to interpret this result as normal/abnormal . BRANDI (test code = Director Of Enterprise Architecture ID - BRANDI) DBThe SELLING UNDERWRITER STAT High Sensitivity Troponin-I results should be used in conjunction with other diagnostic information such as ECG, clinical observations and information, and patient symptoms to aid in the diagnosis of NE. Lab Interpretation Abnormal (test code = 09851-1) [facility] ([facility]/Jin Only) 2021-06-12 01:35:31 Test Item Value Reference Range Interpretation Comments Troponin I HS (test 231 pg/ml See_Comment H [Autom ated code = 67770-0) message] The system which generated this result transmitted reference range : <=17. The reference range was not used to interpret this result as normal/abnormal . BRANDI (test code = Director Of Enterprise Architecture ID - BRANDI) DBThe SELLING UNDERWRITER STAT High Sensitivity Troponin-I results should be used in conjunction with other diagnostic information such as ECG, clinical observations and information, and patient symptoms to aid in the diagnosis of NE. Lab Interpretation Abnormal (test code = 24665-4) [facility] ([facility] Only) 2021-06-12 01:35:31 Test Item Value Reference Range Interpretation Comments Troponin I HS (test 231 pg/ml See_Comment H [Automa levi code = 79454-8) message] The system which generated this result transmitted reference range : <=17. The reference range was not used to interpret this result as normal/abnormal . BRANDI (test code = Director Of Enterprise Architecture ID - BRANDI) DBThe SELLING UNDERWRITER STAT High Sensitivity Troponin-I results should be used in conjunction with other diagnostic information such as ECG, clinical observations and information, and patient symptoms to aid in the diagnosis of NE. Lab Interpretation Abnormal (test code = 36730-8) [facility] 2021-06-12 01:35:31 Test Item Value Reference Range Interpretation Comments Troponin I HS (test 231 pg/ml See_Comment H [Automa levi code = 20970-2) message] The system which generated this result transmitted reference range : <=17. The reference range was not used to interpret this result as normal/abnormal . BRANDI (test code = Director Of Enterprise Architecture ID - BRANDI) DBThe SELLING UNDERWRITER STAT High Sensitivity Troponin-I results should be used in conjunction with other diagnostic information such as ECG, clinical observations and information, and patient symptoms to aid in the diagnosis of NE. Lab Interpretation Abnormal (test code = 88885-9) [facility] 2021-06-12 01:35:31 Test Item Value Reference Range Interpretation Comments Troponin I HS (test 231 pg/ml See_Comment H [Automa levi code = 86193-0) message] The system which generated this result transmitted reference range : <=17. The reference range was not used to interpret this result as normal/abnormal . BRANDI (test code = Director Of Enterprise Architecture ID - BRANDI) DBThe SELLING UNDERWRITER STAT High Sensitivity Troponin-I results should be used in conjunction with other diagnostic information such as ECG, clinical observations and information, and patient symptoms to aid in the diagnosis of NE. Lab Interpretation Abnormal (test code = 75825-6) [facility] TROPONIN [id number] 01:35:31 Test Item Value Reference Range Interpretation Comments HIGH SENSITIVITY 231 pg/ml See_Comment H [Automated message] TROPONIN I (test code The sy stem which = 3164408) generated this result transmitted ref erence range: <=17. Th e reference range was not used to int erpret this result as normal/abnormal . Director Of Enterprise Architecture ID - DBThe SELLING UNDERWRITER STAT High Sensitivity Troponin-I results should be used in conjunctionwith other diagnostic information such as ECG, clinical observations and information, and patient symptoms to aid in the diagnosis of NE.BASIC METABOLIC [id number] 01:29:11 Test Item Value Reference Range Interpretation [...] S NOT APPLICABLE FOR DIALYSIS PATIEN TS. Director Of Enterprise Architecture ID - [id number] 01:28:34 Test Item Value Reference Range Interpretation Comments PHOSPHORUS (BEAKER) 4.6 mg/dL 2.3-4.7 Specimen slightly (test code = 604) hemolyzed Director Of Enterprise Architecture ID - [id number] 01:28:33 Test Item Value Reference Range Interpretation Comments MAGNESIUM (BEAKER) 2.2 mg/dL 1.6-2.6 Specimen slightly (test code = 627) hemolyzed Director Of Enterprise Architecture ID - DBLactic acid, [id number] 01:26:32 Test Item Value Reference Range Interpretation Comments Lactate, Venous (test code = 0.87 mmol/L 0.50-2.20 2872) BRANDI (test code = BRANDI) Director Of Enterprise Architecture ID - DB Lab Interpretation (test Normal code = 22274-4) [facility] [id number] 01:26:32 Test Item Value Reference Range Interpretation Comments Lactate, Venous (test code = 0.87 mmol/L 0.50-2.20 2872) BRANDI (test code = BRANDI) Director Of Enterprise Architecture ID - DB Lab Interpretation (test Normal code = 75494-8) [facility], [id number] 01:26:32 Test Item Value Reference Range Interpretation Comments Lactate, Venous (test code = 0.87 mmol/L 0.50-2.20 2872) BRANDI (test code = BRANDI) Director Of Enterprise Architecture ID - DB Lab Interpretation (test Normal code = 92809-2) [facility], [id number] 01:26:32 Test Item Value Reference Range Interpretation Comments Lactate, Venous (test code = 0.87 mmol/L 0.50-2.20 2872) BRANDI (test code = BRANDI) Director Of Enterprise Architecture ID - DB Lab Interpretation (test Normal code = 70288-0) [facility], [id number] 01:26:32 Test Item Value Reference Range Interpretation Comments Lactate, Venous (test code = 0.87 mmol/L 0.50-2.20 2872) BRANDI (test code = BRANDI) Director Of Enterprise Architecture ID - DB Lab Interpretation (test Normal code = 11219-1) [facility], [id number] 01:26:32 Test Item Value Reference Range Interpretation Comments Lactate, Venous (test code = 0.87 mmol/L 0.50-2.20 2872) BRANDI (test code = BRANDI) Director Of Enterprise Architecture ID - DB Lab Interpretation (test Normal code = 91890-5) [facility], [id number] 01:26:32 Test Item Value Reference Range Interpretation Comments Lactate, Venous (test code = 0.87 mmol/L 0.50-2.20 2872) BRANDI (test code = BRANDI) Director Of Enterprise Architecture ID - DB Lab Interpretation (test Normal code = 67952-8) [facility], [id number] 01:26:32 Test Item Value Reference Range Interpretation Comments Lactate, Venous (test code = 0.87 mmol/L 0.50-2.20 2872) BRANDI (test code = BRANDI) Director Of Enterprise Architecture ID - DB Lab Interpretation (test Normal code = 56269-8) [facility], [id number] 01:26:32 Test Item Value Reference Range Interpretation Comments Lactate, Venous (test code = 0.87 mmol/L 0.50-2.20 2872) BRANDI (test code = BRANDI) Director Of Enterprise Architecture ID - DB Lab Interpretation (test Normal code = 62724-9) [facility], [id number] 01:26:32 Test Item Value Reference Range Interpretation Comments Lactate, Venous (test code = 0.87 mmol/L 0.50-2.20 2872) BRANDI (test code = BRANDI) Director Of Enterprise Architecture ID - DB Lab Interpretation (test Normal code = 89668-4) [facility], [id number] 01:26:32 Test Item Value Reference Range Interpretation Comments Lactate, Venous (test code = 0.87 mmol/L 0.50-2.20 2872) BRANDI (test code = BRANDI) Director Of Enterprise Architecture ID - DB Lab Interpretation (test Normal code = 68220-1) [facility], [id number] 01:26:32 Test Item Value Reference Range Interpretation Comments Lactate, Venous (test code = 0.87 mmol/L 0.50-2.20 2872) BRANDI (test code = BRANDI) Director Of Enterprise Architecture ID - DB Lab Interpretation (test Normal code = 59936-9) [facility], [id number] 01:26:32 Test Item Value Reference Range Interpretation Comments LACTATE BLOOD VENOUS (2) (BEAKER) 0.87 mmol/L 0.50-2.20 (test code = 2872) Director Of Enterprise Architecture ID - DBPOCT-GLUCOSE [id number] 16:24:28 Test Item Value Reference Range Interpretation Comments POC-GLUCOSE METER 244 mg/dL 70-110 H : TESTED A T [facility] 6720 (BEAKER) (test code = YUDY V[place] [facility], 1538) [address]: Director Of Enterprise Architecture/Techni kelle ID = [id number] for Re yes, Maranda POCT-GLUCOSE [id number] 11:29:05 Test Item Value Reference Range Interpretation Comments POC-GLUCOSE METER 168 mg/dL 70-110 H : TESTED A T [facility] 6720 (BEAKER) (test code = [facility] Nola [facility], 1538) [address]: Director Of Enterprise Architecture/Techni kelle ID = [id number] for Re yes, Maranda POCT-GLUCOSE [id number] 06:45:50 Test Item Value Reference Range Interpretation Comments POC-GLUCOSE METER 132 mg/dL 70-110 H : TESTED A T [facility] 6720 (BEAKER) (test code = [facility] Nola [facility], 1538) [address]: Director Of Enterprise Architecture/Techni kelle ID = [id number] for UG GHADA HAMLIN BASIC METABOLIC [id number] 05:08:08 Test Item Value Reference Range Interpretation [...] S NOT APPLICABLE FOR DIALYSIS PATIEN TS. Director Of Enterprise Architecture ID - HIEN [id number] 04:56:38 Test Item Value Reference Range Interpretation Comments MAGNESIUM (BEAKER) (test code = 1.9 mg/dL 1.6-2.6 627) Director Of Enterprise Architecture ID - HIEN [id number] 04:56:38 Test Item Value Reference Range Interpretation Comments PHOSPHORUS (BEAKER) (test code = 3.7 mg/dL 2.3-4.7 604) Director Of Enterprise Architecture ID - HIEN [facility] W/PLT COUNT & AUTO [id number] 04:33:28 Test Item Value Reference Range Interpretation [...] = 2801) CBC W/PLT COUNT & AUTO [id number] 22:57:11 Test Item Value Reference Range Interpretation [...] = 2801) RAD, CHEST, 1 VIEW, NON [id number] 22:44:00Reason for exam:- >dyspneaShould this be performed at the bedside?->Yes [facility] 1955 Sex: FFINAL REPORT History: dyspnea. Comparison: 06/07/2021 Findings: A single view of thechest is submitted. The patient is rotated to the left. The cardiac silhouette is enlarged. There isatherosclerotic calcification of the aorta. Sternotomy wires and a right subclavian, dual-lead pacemaker are in place. There is central pulmonary vascular engorgement. Perihilar interstitial and airspace opacities suggest pulmonary edema. Pneumonitis should be excluded clinically. There is a new, moderate right pleural effusion. There is no pneumothorax or acute bony abnormality. Impression: Findingssuggesting pulmonary edema/CHF. New, moderate right pleural effusion. Signed: Braxton Quintero MDReportVerified Date/Time: 06/10/2021 22:44:59 Electronically signed by: BRAXTON QUINTERO M.D. on 210:44 [id number] 22:43:07 Test Item Value Reference Range Interpretation Comments POC-Glucose (test code = 118 mg/dL 70-110 H : T ESTED AT [facility] 1855) [address] [place] [address], [address]: Director Of Enterprise Architecture/Techni kelle ID = [id number] for MARFIL, JOSE ARMANDO Lab Interpretation (test Abnormal code = 52873-5) [facility]2022-03-09 22:43:07 Test Item Value Reference Range Interpretation Comments POC-Glucose (test code = 118 mg/dL 70-110 H : T ESTED AT [facility] 1855) [address] [place] [address], [address]: Director Of Enterprise Architecture/Techni kelle ID = [id number] for MARFIL, JOSE ARMANDO Lab Interpretation (test Abnormal code = 11161-2) [facility]2022-03-09 22:43:07 Test Item Value Reference Range Interpretation Comments POC-Glucose (test code = 118 mg/dL 70-110 H : [facility] [address] [place] [address], [address]: Director Of Enterprise Architecture/Techni kelle ID = [id number] for MARFIL, JOSE ARMANDO Lab Interpretation (test Abnormal code = 68815-5) [facility]2022-03-09 22:43:07 Test Item Value Reference Range Interpretation Comments POC-Glucose (test code = 118 mg/dL 70-110 H : [facility] [address] [place] [address], [address]: Director Of Enterprise Architecture/Techni kelle ID = [id number] for MARFIL, JOSE ARMANDO Lab Interpretation (test Abnormal code = 34123-7) [facility]2022-03-09 22:43:07 Test Item Value Reference Range Interpretation Comments POC-Glucose (test code = 118 mg/dL 70-110 H : T ESTED AT [facility] 1855) [address] [place] [address], [address]: Director Of Enterprise Architecture/Techni kelle ID = [id number] for MARFIL, JOSE ARMANDO Lab Interpretation (test Abnormal code = 40688-5) [id number] 22:43:07 Test Item Value Reference Range Interpretation Comments POC-Glucose (test code = 118 mg/dL 70-110 H : T ESTED AT [facility] 1855) [address] [place] [address], [address]: Director Of Enterprise Architecture/Techni kelle ID = [id number] for MARFIL, JOSE ARMANDO Lab Interpretation (test Abnormal code = 02745-9) [facility]2022-03-09 22:43:07 Test Item Value Reference Range Interpretation Comments POC-Glucose (test code = 118 mg/dL 70-110 H : [facility] [address] [place] [address], [address]: Director Of Enterprise Architecture/Techni kelle ID = [id number] for MARFIL, JOSE ARMANDO Lab Interpretation (test Abnormal code = 87810-3) [facility]2022-03-09 22:43:07 Test Item Value Reference Range Interpretation Comments POC-Glucose (test code = 118 mg/dL 70-110 H : [facility] [address] [place] [address], [address]: Director Of Enterprise Architecture/Techni kelle ID = [id number] for MARFIL, JOSE ARMANDO Lab Interpretation (test Abnormal code = 18784-6) [facility]2022-03-09 22:43:07 Test Item Value Reference Range Interpretation Comments POC-Glucose (test code = 118 mg/dL 70-110 H : [facility] [address] [place] [address], [address]: Director Of Enterprise Architecture/Techni kelle ID = [id number] for MARFIL, JOSE ARMANDO Lab Interpretation (test Abnormal code = 40721-0) [facility]2022-03-09 22:43:07 Test Item Value Reference Range Interpretation Comments POC-Glucose (test code = 118 mg/dL 70-110 H : [facility] [address] [place] [address], [address]: Director Of Enterprise Architecture/Techni kelle ID = [id number] for MARFIL, JOSE ARMANDO Lab Interpretation (test Abnormal code = 08281-0) [facility]2022-03-09 22:43:07 Test Item Value Reference Range Interpretation Comments POC-Glucose (test code = 118 mg/dL 70-110 H : T ESTED AT [facility] 1855) [address] [facility], [address] 30: Director Of Enterprise Architecture/Techni kelle ID = [id number] for MARFIL, JOSE ARMANDO Lab Interpretation (test Abnormal code = 88472-9) [facility] HospitalPOCT-[id number] 22:43:07 Test Item Value Reference Range Interpretation Comments POC-Glucose (test code = 118 mg/dL 70-110 H : T ESTED AT [facility] 1855) [address] [facility], [address]: Director Of Enterprise Architecture/Techni kelle ID = [id number] for MARFIL, JOSE ARMANDO Lab Interpretation (test Abnormal code = 93505-1) [facility]-[id number] 22:43:07 Test Item Value Reference Range Interpretation Comments POC-GLUCOSE (BEAKER) 118 mg/dL 70-110 H : TESTE D AT [facility] 6720 (test code = 1855) [facility], [address]: Director Of Enterprise Architecture/Techni kelle ID = [id number] for MARF IL, JOSE ARMANDO GVIS-[id number] 22:43:06 Test Item Value Reference Range Interpretation Comments POC-Hemoglobin (test code 8.2 g/dL 12.0-15.0 L : TESTED AT [facility] = 1856) [address] [facility], [address]: Director Of Enterprise Architecture/Techni kelle ID = [id number] for MARFIL, JOSE ARMANDO Lab Interpretation (test Abnormal code = 14981-4) [facility] HospitalIrkunwZMZP-[id number] 22:43:06 Test Item Value Reference Range Interpretation Comments POC-Hematocrit (test code 24 % 36-45 L : = 1857) Director Of Enterprise Architecture/Techni kelle ID = [id number] for MARFIL, JOSE ARMANDO Lab Interpretation (test Abnormal code = 65260-4) [facility] HospitalNljbarDYEC-[id number] 22:43:06 Test Item Value Reference Range Interpretation Comments POC-Hemoglobin (test code 8.2 g/dL 12.0-15.0 L : TESTED AT [facility] = 1856) [address] [place] [address], [address]: Director Of Enterprise Architecture/Techni kelle ID = [id number] for MARFIL, JOSE ARMANDO Lab Interpretation (test Abnormal code = 77944-9) [facility]-[id number] 22:43:06 Test Item Value Reference Range Interpretation Comments POC-Hematocrit (test code 24 % 36-45 L : = 1857) Director Of Enterprise Architecture/Techni kelle ID = [id number] for MARFIL, JOSE ARMANDO Lab Interpretation (test Abnormal code = 42427-4) [facility]-[id number] 22:43:06 Test Item Value Reference Range Interpretation Comments POC-Hemoglobin (test code 8.2 g/dL 12.0-15.0 L : [facility] [address] [place] [address], [address]: Director Of Enterprise Architecture/Techni kelle ID = [id number] for MARFIL, JOSE ARMANDO Lab Interpretation (test Abnormal code = 04882-9) [facility]-[id number] 22:43:06 Test Item Value Reference Range Interpretation Comments POC-Hematocrit (test code 24 % 36-45 L : = 1857) Director Of Enterprise Architecture/Techni kelle ID = [id number] for MARFIL, JOSE ARMANOD Lab Interpretation (test Abnormal code = 06952-7) [facility]-[id number] 22:43:06 Test Item Value Reference Range Interpretation Comments POC-Hemoglobin (test code 8.2 g/dL 12.0-15.0 L : [facility] [address] [place] [address], [address]: Director Of Enterprise Architecture/Techni kelle ID = [id number] for MARFIL, JOSE ARMANDO Lab Interpretation (test Abnormal code = 70676-3) [facility]-[id number] 22:43:06 Test Item Value Reference Range Interpretation Comments POC-Hematocrit (test code 24 % 36-45 L : = 1857) Director Of Enterprise Architecture/Techni kelle ID = [id number] for MARFIL, JOSE ARMANDO Lab Interpretation (test Abnormal code = 57192-3) [facility]-[id number] 22:43:06 Test Item Value Reference Range Interpretation Comments POC-Hemoglobin (test code 8.2 g/dL 12.0-15.0 L : [facility] [address] [place] [address], [address]: Director Of Enterprise Architecture/Techni kelle ID = [id number] for MARFIL, JOSE ARMANDO Lab Interpretation (test Abnormal code = 47023-6) [facility]-[id number] 22:43:06 Test Item Value Reference Range Interpretation Comments POC-Hematocrit (test code 24 % 36-45 L : = 1857) Director Of Enterprise Architecture/Techni kelle ID = [id number] for MARFIL, JOSE ARMANDO Lab Interpretation (test Abnormal code = 12467-8) [facility]-[id number] 22:43:06 Test Item Value Reference Range Interpretation Comments POC-Hemoglobin (test code 8.2 g/dL 12.0-15.0 L : TESTED AT [facility] = 1856) [address] [place] [address], [address]: Director Of Enterprise Architecture/Techni kelle ID = [id number] for MARFIL, JOSE ARMANDO Lab Interpretation (test Abnormal code = 54711-5) [facility]-ICPDUVETCM9428-01-12 22:43:06 Test Item Value Reference Range Interpretation Comments POC-Hematocrit (test code 24 % 36-45 L : = 1857) Director Of Enterprise Architecture/Techni kelle ID = [id number] for MARFIL, JOSE ARMANDO Lab Interpretation (test Abnormal code = 24568-2) [facility]-[id number] 22:43:06 Test Item Value Reference Range Interpretation Comments POC-Hemoglobin (test code 8.2 g/dL 12.0-15.0 L : TESTED AT [facility] = 1856) [address] [place] [address], [address]: Director Of Enterprise Architecture/Techni kelle ID = [id number] for MARFIL, JOSE ARMANDO Lab Interpretation (test Abnormal code = 00167-7) [facility]-[id number] 22:43:06 Test Item Value Reference Range Interpretation Comments POC-Hematocrit (test code 24 % 36-45 L : = 1857) Director Of Enterprise Architecture/Techni kelle ID = [id number] for MARFIL, JOSE ARMANDO Lab Interpretation (test Abnormal code = 52132-9) [facility]-[id number] 22:43:06 Test Item Value Reference Range Interpretation Comments POC-Hemoglobin (test code 8.2 g/dL 12.0-15.0 L : TESTED AT [facility] = 1856) [address] [place] [address], [address]: Director Of Enterprise Architecture/Techni kelle ID = [id number] for MARFIL, JOSE ARMANDO Lab Interpretation (test Abnormal code = 71022-9) [facility]-[id number] 22:43:06 Test Item Value Reference Range Interpretation Comments POC-Hematocrit (test code 24 % 36-45 L : = 1857) Director Of Enterprise Architecture/Techni kelle ID = [id number] for MARFIL, JOSE ARMANDO Lab Interpretation (test Abnormal code = 44565-5) [facility]-[id number] 22:43:06 Test Item Value Reference Range Interpretation Comments POC-Hemoglobin (test code 8.2 g/dL 12.0-15.0 L : TESTED AT [facility] = 1856) [address] [place] [address], [address]: Director Of Enterprise Architecture/Techni kelle ID = [id number] for MARFIL, JOSE ARMANDO Lab Interpretation (test Abnormal code = 03983-3) [facility]-[id number] 22:43:06 Test Item Value Reference Range Interpretation Comments POC-Hematocrit (test code 24 % 36-45 L : = 1857) Director Of Enterprise Architecture/Techni kelle ID = [id number] for MARFIL, JOSE ARMANDO Lab Interpretation (test Abnormal code = 02172-6) [facility]-OXNINEYKKN9414-00-02 22:43:06 Test Item Value Reference Range Interpretation Comments POC-Hemoglobin (test code 8.2 g/dL 12.0-15.0 L : TESTED AT [facility] = 1856) [address] [place] [address], [address]: Director Of Enterprise Architecture/Techni kelle ID = [id number] for MARFIL, JOSE ARMANDO Lab Interpretation (test Abnormal code = 15721-1) [facility]-[id number] 22:43:06 Test Item Value Reference Range Interpretation Comments POC-Hematocrit (test code 24 % 36-45 L : = 1857) Director Of Enterprise Architecture/Techni kelle ID = [id number] for MARFIL, JOSE ARMANDO Lab Interpretation (test Abnormal code = 80897-5) [facility]-[id number] 22:43:06 Test Item Value Reference Range Interpretation Comments POC-Hemoglobin (test code 8.2 g/dL 12.0-15.0 L : TESTED AT [facility] = 1856) [address] [facility], [address]: Director Of Enterprise Architecture/Techni kelle ID = [id number] for MARFIL, JOSE ARMANDO Lab Interpretation (test Abnormal code = 86474-5) [facility] HospitalQgtkwlHGIU-IDVPAENAVB5524-22-09 22:43:06 Test Item Value Reference Range Interpretation Comments POC-Hematocrit (test code 24 % 36-45 L : = 1857) Director Of Enterprise Architecture/Techni kelle ID = [id number] for MARFIL, JOSE ARMANDO Lab Interpretation (test Abnormal code = 29466-2) [facility] HospitalSnlqntFUJN-[id number] 22:43:06 Test Item Value Reference Range Interpretation Comments POC-Hemoglobin (test code 8.2 g/dL 12.0-15.0 L : TESTED AT [facility] = 1856) [address] [facility], [address] 30: Director Of Enterprise Architecture/Techni kelle ID = [id number] for MARFIL, JOSE ARMANDO Lab Interpretation (test Abnormal code = 53187-8) [facility] HospitalCymsxpLXIJ-HPVELHPZRS4830-50-09 22:43:06 Test Item Value Reference Range Interpretation Comments POC-Hematocrit (test code 24 % 36-45 L : = 1857) Director Of Enterprise Architecture/Techni kelle ID = [id number] for MARFIL, JOSE ARMANDO Lab Interpretation (test Abnormal code = 31810-8) [facility] HospitalOmekbgPENO-LOPTLBMZDS8460-10-09 22:43:06 Test Item Value Reference Range Interpretation Comments POC-HEMOGLOBIN 8.2 g/dL 12.0-15.0 L : TESTED AT [facility] 6720 (BEAKER) (test code = YUDY Vaca [facility], 1856) [address]: Director Of Enterprise Architecture/Techni kelle ID = [id number] for MARF IL, JOSE ARMANDO [id number] 22:43:06 Test Item Value Reference Range Interpretation Comments POC-HEMATOCRIT 24 % 36-45 L : Director Of Enterprise Architecture/Te chnician ID = (BEAKER) (test code = 826659 for MARFIL, JOSE ARMANDO 1857) [facility]-[id number] 22:43:05 Test Item Value Reference Range Interpretation Comments POC-Potassium (test code 3.4 meq/L 3.6-5.5 L : T ESTED AT [facility] = 1540) 20 [facility], 770 30: Director Of Enterprise Architecture/Techni kelle ID = [id number] for MARFIL, JOSE ARMANDO Lab Interpretation (test Abnormal code = 66835-0) [facility]-[id number] 22:43:05 Test Item Value Reference Range Interpretation Comments POC-Sodium (test code = 137 meq/L 135-148 : TE STED AT [facility] 1542) [address] [place] [address], 770 30: Director Of Enterprise Architecture/Techni kelle ID = [id number] for MARFIL, JOSE ARMANDO Lab Interpretation (test Normal code = 76575-3) [facility]-Justcmokr9054-75-18 22:43:05 Test Item Value Reference Range Interpretation Comments POC-Potassium (test code 3.4 meq/L 3.6-5.5 L : T ESTED AT [facility] = 1540) [address] [place] [address], 770 30: Director Of Enterprise Architecture/Techni kelle ID = [id number] for MARFIL, JOSE ARMANDO Lab Interpretation (test Abnormal code = 57652-9) [facility]-Mmaudd7955-90-74 22:43:05 Test Item Value Reference Range Interpretation Comments POC-Sodium (test code = 137 meq/L 135-148 : TE STED AT [facility] 1542) [address] [place] [address], 770 30: Director Of Enterprise Architecture/Techni kelle ID = [id number] for MARFIL, JOSE ARMANDO Lab Interpretation (test Normal code = 54183-1) [facility]-Tmnxsljzi4428-66-17 22:43:05 Test Item Value Reference Range Interpretation Comments POC-Potassium (test code 3.4 meq/L 3.6-5.5 L : T ESTED AT [facility] = 1540) [address] [place] [address], 770 30: Director Of Enterprise Architecture/Techni kelle ID = [id number] for MARFIL, JOSE ARMANDO Lab Interpretation (test Abnormal code = 20598-9) [facility]-Wkpgjm1283-41-76 22:43:05 Test Item Value Reference Range Interpretation Comments POC-Sodium (test code = 137 meq/L 135-148 : TE STED AT [facility] 1542) [address] [place] [address], 770 30: Director Of Enterprise Architecture/Techni kelle ID = [id number] for MARFIL, JOSE ARMANDO Lab Interpretation (test Normal code = 63267-2) [facility]-Vpmirrkur7167-11-59 22:43:05 Test Item Value Reference Range Interpretation Comments POC-Potassium (test code 3.4 meq/L 3.6-5.5 L : T ESTED AT [facility] = 1540) [address] [place] [address], 770 30: Director Of Enterprise Architecture/Techni kelle ID = [id number] for MARFIL, JOSE ARMANDO Lab Interpretation (test Abnormal code = 09634-2) [facility]-Izmkne4667-95-43 22:43:05 Test Item Value Reference Range Interpretation Comments POC-Sodium (test code = 137 meq/L 135-148 : TE STED AT [facility] 1542) [address] [place] [address], 770 30: Director Of Enterprise Architecture/Techni kelle ID = [id number] for MARFIL, JOSE ARMANDO Lab Interpretation (test Normal code = 08559-2) [facility]-Ttzzjpixy2732-74-68 22:43:05 Test Item Value Reference Range Interpretation Comments POC-Potassium (test code 3.4 meq/L 3.6-5.5 L : T ESTED AT [facility] = 1540) [address] [place] [address], 770 30: Director Of Enterprise Architecture/Techni kelle ID = [id number] for MARFIL, JOSE ARMANDO Lab Interpretation (test Abnormal code = 81283-1) [facility]-Vjqnni8321-86-23 22:43:05 Test Item Value Reference Range Interpretation Comments POC-Sodium (test code = 137 meq/L 135-148 : TE STED AT [facility] 1542) [address] [place] [address], 770 30: Director Of Enterprise Architecture/Techni kelle ID = [id number] for MARFIL, JOSE ARMANDO Lab Interpretation (test Normal code = 90874-6) [facility]-Opcsvgsfr7568-14-79 22:43:05 Test Item Value Reference Range Interpretation Comments POC-Potassium (test code 3.4 meq/L 3.6-5.5 L : T ESTED AT [facility] = 1540) [address] [place] [address], 770 30: Director Of Enterprise Architecture/Techni kelle ID = [id number] for MARFIL, JOSE ARMANDO Lab Interpretation (test Abnormal code = 78229-8) [facility]-Zztgyc7418-64-61 22:43:05 Test Item Value Reference Range Interpretation Comments POC-Sodium (test code = 137 meq/L 135-148 : TE STED AT [facility] 1542) [address] [place] [address], 770 30: Director Of Enterprise Architecture/Techni kelle ID = [id number] for MARFIL, JOSE ARMANDO Lab Interpretation (test Normal code = 66602-9) [facility]-Zyadgjxkr5448-63-10 22:43:05 Test Item Value Reference Range Interpretation Comments POC-Potassium (test code 3.4 meq/L 3.6-5.5 L : T ESTED AT [facility] = 1540) [address] [place] [address], 770 30: Director Of Enterprise Architecture/Techni kelle ID = [id number] for MARFIL, JOSE ARMANDO Lab Interpretation (test Abnormal code = 56101-3) [facility]-Utpenw7313-19-03 22:43:05 Test Item Value Reference Range Interpretation Comments POC-Sodium (test code = 137 meq/L 135-148 : TE STED AT [facility] 1542) [address] [place] [address], 770 30: Director Of Enterprise Architecture/Techni kelle ID = [id number] for MARFIL, JOSE ARMANDO Lab Interpretation (test Normal code = 56064-0) [facility]-Hfnaocffm7639-71-47 22:43:05 Test Item Value Reference Range Interpretation Comments POC-Potassium (test code 3.4 meq/L 3.6-5.5 L : T ESTED AT [facility] = 1540) [address] [place] [address], 770 30: Director Of Enterprise Architecture/Techni kelle ID = [id number] for MARFIL, JOSE ARMANDO Lab Interpretation (test Abnormal code = 13721-4) [facility]-Obnhzb2826-57-66 22:43:05 Test Item Value Reference Range Interpretation Comments POC-Sodium (test code = 137 meq/L 135-148 : TE STED AT [facility] 1542) [address] [place] [address], 770 30: Director Of Enterprise Architecture/Techni kelle ID = [id number] for MARFIL, JOSE ARMANDO Lab Interpretation (test Normal code = 98358-0) [facility]-Evighcnpa1339-69-80 22:43:05 Test Item Value Reference Range Interpretation Comments POC-Potassium (test code 3.4 meq/L 3.6-5.5 L : T ESTED AT [facility] = 1540) [address] [place] [address], [facility] 30: Director Of Enterprise Architecture/Techni kelle ID = [id number] for MARFIL, JOSE ARMANDO Lab Interpretation (test Abnormal code = 06757-1) [facility]-Acxvdh1912-56-68 22:43:05 Test Item Value Reference Range Interpretation Comments POC-Sodium (test code = 137 meq/L 135-148 : TE STED AT [facility] 1542) [address] [place] [address], [facility] 30: Director Of Enterprise Architecture/Techni kelle ID = [id number] for MARFIL, JOSE ARMANDO Lab Interpretation (test Normal code = 85276-0) [facility]-Orrwttyyu8649-43-62 22:43:05 Test Item Value Reference Range Interpretation Comments POC-Potassium (test code 3.4 meq/L 3.6-5.5 L : T ESTED AT [facility] = 1540) [address] [place] [address], 770 30: Director Of Enterprise Architecture/Techni kelle ID = [id number] for MARFIL, JOSE ARMANDO Lab Interpretation (test Abnormal code = 72003-3) [facility]-Hjkwrd1372-74-65 22:43:05 Test Item Value Reference Range Interpretation Comments POC-Sodium (test code = 137 meq/L 135-148 : TE STED AT [facility] 1542) [address] [place] [address], 770 30: Director Of Enterprise Architecture/Techni kelle ID = [id number] for MARFIL, JOSE ARMANDO Lab Interpretation (test Normal code = 01234-0) [facility]-Dwcfpwncw8606-04-25 22:43:05 Test Item Value Reference Range Interpretation Comments POC-Potassium (test code 3.4 meq/L 3.6-5.5 L : T ESTED AT [facility] = 1540) [address] [place] [address], 770 30: Director Of Enterprise Architecture/Techni kelle ID = [id number] for MARFIL, JOSE ARMANDO Lab Interpretation (test Abnormal code = 61531-9) [facility]-Mjubmu9772-87-59 22:43:05 Test Item Value Reference Range Interpretation Comments POC-Sodium (test code = 137 meq/L 135-148 : TE STED AT [facility] 1542) [address] [place] [address], 770 30: Director Of Enterprise Architecture/Techni kelle ID = [id number] for MARFIL, JOSE ARMANDO Lab Interpretation (test Normal code = 35312-1) [facility]-Okoeucoii1699-30-92 22:43:05 Test Item Value Reference Range Interpretation Comments POC-Potassium (test code 3.4 meq/L 3.6-5.5 L : T ESTED AT [facility] = 1540) [address] [place] [address], 770 30: Director Of Enterprise Architecture/Techni kelle ID = [id number] for MARFIL, JOSE ARMANDO Lab Interpretation (test Abnormal code = 72666-6) [facility]-Dvjkve0891-68-90 22:43:05 Test Item Value Reference Range Interpretation Comments POC-Sodium (test code = 137 meq/L 135-148 : TE STED AT [facility] 1542) [address] [place] [address], 770 30: Director Of Enterprise Architecture/Techni kelle ID = [id number] for MARFIL, JOSE ARMANDO Lab Interpretation (test Normal code = 33134-1) [facility]-[id number] 22:43:05 Test Item Value Reference Range Interpretation Comments POC-SODIUM (BEAKER) 137 meq/L 135-148 : TESTED AT [facility] 6720 (test code = 1542) [facility], [address]: Director Of Enterprise Architecture/Techni kelle ID = [id number] for MARF IL, JOSE ARMANDO [id number] 22:43:05 Test Item Value Reference Range Interpretation Comments POC-POTASSIUM 3.4 meq/L 3.6-5.5 L : TESTED AT [facility] 6720 (BEAKER) (test code [facility], = 1540) [address]: Director Of Enterprise Architecture/Techni kelle ID = [id number] for MARF IL, JOSE ARMANDO POC-Blood gases, [id number] 22:42:59 Test Item Value Reference Range Interpretation Comments Temp. Celsius-POC (test 101.3 code = 1834) FIO2-POC (test code = 28 1835) pH, Venous-POC (test 7.484 7.320-7.420 H : TESTE D AT [facility] code = 1842) 6720 [facility], [address] PCO2, Venous-POC (test 39.4 See_Comment L If [...] mated message] code = 1844) The system Awo[employer] generated this result transmit levi reference range : 25.0 - 40.0 mm Hg. The reference r alba was not used to interpret this result as normal/abnormal . SO2, Venous-POC (test 87.0 % 40.0-70.0 H code = 1845) HCO3, Venous-POC (test 29.3 meq/L 21.0-29.0 H code = 1846) BE, Venous-POC (test 6.0 meq/L -2.0-3.0 H : code = 1847) Director Of Enterprise Architecture/Techni kelle ID = [id number] for VIMAL JOSE ARMANDO Lab Interpretation Abnormal (test code = 87794-7) [facility]-Blood gases, [id number] 22:42:59 Test Item Value Reference Range Interpretation Comments Temp. Celsius-POC (test 101.3 code = 183) FIO2-POC (test code = 1834) pH, Venous-POC (test 7.484 7.320-7.420 H : TESTE D AT [facility] code = 1842) 6720 [place], [address] PCO2, Venous-POC (test 39.4 See_Comment L If [...] mated message] code = 1844) The system Awo[employer] generated this result transmit levi reference range : 25.0 - 40.0 mm Hg. The reference r alba was not used to interpret this result as normal/abnormal . SO2, Venous-POC (test 87.0 % 40.0-70.0 H code = 1845) HCO3, Venous-POC (test 29.3 meq/L 21.0-29.0 H code = 1846) BE, Venous-POC (test 6.0 meq/L -2.0-3.0 H : code = 1847) Director Of Enterprise Architecture/Techni kelle ID = [id number] for MARFIL, JOSE ARMANDO Lab Interpretation Abnormal (test code = 54977-0) [facility]-Blood gases, [id number] 22:42:59 Test Item Value Reference Range Interpretation Comments Temp. Celsius-POC (test 101.3 code = 1834) FIO2-POC (test code = 28 1835) pH, Venous-POC (test 7.484 7.320-7.420 H : TESTE D AT [facility] code = 1842) 6720 [facility], [address] PCO2, Venous-POC (test 39.4 See_Comment L If [...] mated message] code = 1844) The system Awo[employer] generated this result transmit levi reference range : 25.0 - 40.0 mm Hg. The reference r alba was not used to interpret this result as normal/abnormal . SO2, Venous-POC (test 87.0 % 40.0-70.0 H code = 1845) HCO3, Venous-POC (test 29.3 meq/L 21.0-29.0 H code = 1846) BE, Venous-POC (test 6.0 meq/L -2.0-3.0 H : code = 1847) Director Of Enterprise Architecture/Techni kelle ID = [id number] for MARFIL, JOSE ARMANDO Lab Interpretation Abnormal (test code = 68321-3) [facility]-Blood gases, [id number] 22:42:59 Test Item Value Reference Range Interpretation Comments Temp. Celsius-POC (test 101.3 code = 1834) FIO2-POC (test code = 1834) pH, Venous-POC (test 7.484 7.320-7.420 H : TESTE D AT [facility] code = 1842) 6720 [facility] [place], [address] PCO2, Venous-POC (test 39.4 See_Comment L If [...] mated message] code = 1844) The system Awo[employer] generated this result transmit levi reference range : 25.0 - 40.0 mm Hg. The reference r alba was not used to interpret this result as normal/abnormal . SO2, Venous-POC (test 87.0 % 40.0-70.0 H code = 1845) HCO3, Venous-POC (test 29.3 meq/L 21.0-29.0 H code = 1846) BE, Venous-POC (test 6.0 meq/L -2.0-3.0 H : code = 1847) Director Of Enterprise Architecture/Techni kelle ID = [id number] for JOSE ARMANDO CELIS Lab Interpretation Abnormal (test code = 61409-6) [facility]-Blood gases, [id number] 22:42:59 Test Item Value Reference Range Interpretation Comments Temp. Celsius-POC (test 101.3 code = 1834) FIO2-POC (test code = 1834) pH, Venous-POC (test 7.484 7.320-7.420 H : TESTE D AT [facility] code = 1842) 6720 [place], [address] PCO2, Venous-POC (test 39.4 See_Comment L If [...] mated message] code = 1844) The system Awo[employer] generated this result transmit levi reference range : 25.0 - 40.0 mm Hg. The reference r alba was not used to interpret this result as normal/abnormal . SO2, Venous-POC (test 87.0 % 40.0-70.0 H code = 1845) HCO3, Venous-POC (test 29.3 meq/L 21.0-29.0 H code = 1846) BE, Venous-POC (test 6.0 meq/L -2.0-3.0 H : code = 1847) Director Of Enterprise Architecture/Techni kelle ID = [id number] for WILFRIDO CELISDIE Lab Interpretation Abnormal (test code = 49422-7) [facility]-Blood gases, [id number] 22:42:59 Test Item Value Reference Range Interpretation Comments Temp. Celsius-POC (test 101.3 code = 1834) FIO2-POC (test code = 28 1835) pH, Venous-POC (test 7.484 7.320-7.420 H : TESTE D AT [facility] code = 1842) 67[address] [place], [address] PCO2, Venous-POC (test 39.4 See_Comment L If [...] mated message] code = 1844) The system Awo[employer] generated this result transmit levi reference range : 25.0 - 40.0 mm Hg. The reference r alba was not used to interpret this result as normal/abnormal . SO2, Venous-POC (test 87.0 % 40.0-70.0 H code = 1845) HCO3, Venous-POC (test 29.3 meq/L 21.0-29.0 H code = 1846) BE, Venous-POC (test 6.0 meq/L -2.0-3.0 H : code = 1847) Director Of Enterprise Architecture/Techni kelle ID = [id number] for MARFIL, JOSE ARMANDO Lab Interpretation Abnormal (test code = 57475-7) [facility]-Blood gases, [id number] 22:42:59 Test Item Value Reference Range Interpretation Comments Temp. Celsius-POC (test 101.3 code = 1834) FIO2-POC (test code = 28 1835) pH, Venous-POC (test 7.484 7.320-7.420 H : TESTE D AT [facility] code = 1842) 67[address] [facility] [place], [address] PCO2, Venous-POC (test 39.4 See_Comment L If [...] mated message] code = 1844) The system Awo[employer] generated this result transmit levi reference range : 25.0 - 40.0 mm Hg. The reference r alba was not used to interpret this result as normal/abnormal . SO2, Venous-POC (test 87.0 % 40.0-70.0 H code = 1845) HCO3, Venous-POC (test 29.3 meq/L 21.0-29.0 H code = 1846) BE, Venous-POC (test 6.0 meq/L -2.0-3.0 H : code = 1847) Director Of Enterprise Architecture/Techni kelle ID = [id number] for MARFIL, JOSE ARMANDO Lab Interpretation Abnormal (test code = 14054-2) [facility]-Blood gases, [id number] 22:42:59 Test Item Value Reference Range Interpretation Comments Temp. Celsius-POC (test 101.3 code = 1834) FIO2-POC (test code = 28 5) pH, Venous-POC (test 7.484 7.320-7.420 H : TESTE D AT [facility] code = 1842) 6720 [facility], [address] PCO2, Venous-POC (test 39.4 See_Comment L If [...] mated message] code = 1844) The system Awo[employer] generated this result transmit levi reference range : 25.0 - 40.0 mm Hg. The reference r alba was not used to interpret this result as normal/abnormal . SO2, Venous-POC (test 87.0 % 40.0-70.0 H code = 1845) HCO3, Venous-POC (test 29.3 meq/L 21.0-29.0 H code = 1846) BE, Venous-POC (test 6.0 meq/L -2.0-3.0 H : code = 1847) Director Of Enterprise Architecture/Techni kelle ID = [id number] for HERBERT CELISE Lab Interpretation Abnormal (test code = 66494-4) [facility]-Blood gases, [id number] 22:42:59 Test Item Value Reference Range Interpretation Comments Temp. Celsius-POC (test 101.3 code = 1834) FIO2-POC (test code = 28 1835) pH, Venous-POC (test 7.484 7.320-7.420 H : TESTE D AT [facility] code = 1842) 6720 [facility], [address] PCO2, Venous-POC (test 39.4 See_Comment L If [...] mated message] code = 1844) The system AwoX generated this result transmit levi reference range : 25.0 - 40.0 mm Hg. The reference r alba was not used to interpret this result as normal/abnormal . SO2, Venous-POC (test 87.0 % 40.0-70.0 H code = 1845) HCO3, Venous-POC (test 29.3 meq/L 21.0-29.0 H code = 1846) BE, Venous-POC (test 6.0 meq/L -2.0-3.0 H : code = 1847) Director Of Enterprise Architecture/Techni kelle ID = [id number] for MARFIL, JOSE ARMANDO Lab Interpretation Abnormal (test code = 53715-3) [facility]-Blood gases, [id number] 22:42:59 Test Item Value Reference Range Interpretation Comments Temp. Celsius-POC (test 101.3 code = 1834) FIO2-POC (test code = 28 1835) pH, Venous-POC (test 7.484 7.320-7.420 H : TESTE D AT [facility] code = 1842) 6720 [place] [place], [address] PCO2, Venous-POC (test 39.4 See_Comment L If [...] mated message] code = 1844) The system [employer] h generated this result transmit levi reference range : 25.0 - 40.0 mm Hg. The reference r alba was not used to interpret this result as normal/abnormal . SO2, Venous-POC (test 87.0 % 40.0-70.0 H code = 1845) HCO3, Venous-POC (test 29.3 meq/L 21.0-29.0 H code = 1846) BE, Venous-POC (test 6.0 meq/L -2.0-3.0 H : code = 1847) Director Of Enterprise Architecture/Techni kelle ID = [id number] for MARFIL, JOSE ARMANDO Lab Interpretation Abnormal (test code = 26533-9) [facility]-Blood gases, [id number] 22:42:59 Test Item Value Reference Range Interpretation Comments Temp. Celsius-POC (test 101.3 code = 1834) FIO2-POC (test code = 1834) pH, Venous-POC (test 7.484 7.320-7.420 H : TESTE D AT [facility] code = 1842) [address] [facility] [place], [address] PCO2, Venous-POC (test 39.4 See_Comment L If [...] mated message] code = 1844) The system AwoX generated this result transmit levi reference range : 25.0 - 40.0 mm Hg. The reference r alba was not used to interpret this result as normal/abnormal . SO2, Venous-POC (test 87.0 % 40.0-70.0 H code = 1845) HCO3, Venous-POC (test 29.3 meq/L 21.0-29.0 H code = 1846) BE, Venous-POC (test 6.0 meq/L -2.0-3.0 H : code = 1847) Director Of Enterprise Architecture/Techni kelle ID = [id number] for JOSE ARMANDO CELIS Lab Interpretation Abnormal (test code = 69752-1) [facility]-Blood gases, [id number] 22:42:59 Test Item Value Reference Range Interpretation Comments Temp. Celsius-POC (test 101.3 code = 1834) FIO2-POC (test code = 1834) pH, Venous-POC (test 7.484 7.320-7.420 H : TESTE D AT [facility] code = 184) 6720 [place] [place], [address] PCO2, Venous-POC (test 39.4 See_Comment L If [...] mated message] code = 1844) The system Awo[employer] generated this result transmit levi reference range : 25.0 - 40.0 mm Hg. The reference r alba was not used to interpret this result as normal/abnormal . SO2, Venous-POC (test 87.0 % 40.0-70.0 H code = 1845) HCO3, Venous-POC (test 29.3 meq/L 21.0-29.0 H code = 1846) BE, Venous-POC (test 6.0 meq/L -2.0-3.0 H : code = 1847) Director Of Enterprise Architecture/Techni kelle ID = [id number] for MARFIL, JOSE ARMANDO Lab Interpretation Abnormal (test code = 43228-1) [facility] [id number] 22:42:59 Test Item Value Reference Range Interpretation Comments TEMP, CELSIUS-POC 101.3 (BEAKER) (test code = 1834) FIO2-POC (BEAKER) 28 (test code = 1835) PH, VENOUS-POC 7.484 7.320-7.420 H : TESTED AT [facility] 6720 (BEAKER) (test code [facility], = 1842) [address] PCO2, VENOUS-POC 39.4 mm Hg 41.0-51.0 L [...] BASE EXCESS, 6.0 meq/L -2.0-3.0 H : Director Of Enterprise Architecture/Tech mayte ID VENOUS-POC (BEAKER) = [id number] for MARFIL, (test code = 1847) JOSE ARMANDO LACTIC ACID, [id number] 22:23:56 Test Item Value Reference Range Interpretation Comments LACTATE BLOOD VENOUS 0.92 mmol/L 0.50-2.20 Specime n moderately (2) (BEAKER) (test hemolyzed code = 2872) Director Of Enterprise Architecture ID - BSPOCT-GLUCOSE [id number] 21:35:23 Test Item Value Reference Range Interpretation Comments POC-GLUCOSE METER 125 mg/dL 70-110 H : TESTED A T [facility] 6720 (BEAKER) (test code = [facility], 1538) [address]: Director Of Enterprise Architecture/Techni kelle ID = [id number] for UG GHADA HAMLIN POCT-GLUCOSE [id number] 17:05:43 Test Item Value Reference Range Interpretation Comments POC-GLUCOSE METER 224 mg/dL 70-110 H : TESTED A T [facility] 6720 (BEAKER) (test code = [facility], 1538) [address]: Director Of Enterprise Architecture/Techni kelle ID = [id number] for Re yes, Maranda POCT-GLUCOSE [id number] 16:33:44 Test Item Value Reference Range Interpretation Comments POC-GLUCOSE METER 108 mg/dL 70-110 : TESTED A T [facility] 6720 (BEAKER) (test code = [facility], 1538) [address]: Director Of Enterprise Architecture/Techni kelle ID = [id number] for Ag Herminia ball POCT-GLUCOSE [id number] 07:38:21 Test Item Value Reference Range Interpretation Comments POC-GLUCOSE METER 185 mg/dL 70-110 H : TESTED A T [facility] 6720 (BEAKER) (test code = [facility], 1538) [address]: Director Of Enterprise Architecture/Techni kelle ID = [id number] for Re yes, Maranda BASIC METABOLIC [id number] 07:20:13 Test Item Value Reference Range Interpretation [...] S NOT APPLICABLE FOR DIALYSIS PATIEN TS. Director Of Enterprise Architecture ID - HIEN [id number] 06:54:10 Test Item Value Reference Range Interpretation Comments PHOSPHORUS (BEAKER) (test code = 4.6 mg/dL 2.3-4.7 604) Director Of Enterprise Architecture ID - HIEN [id number] 06:54:09 Test Item Value Reference Range Interpretation Comments MAGNESIUM (BEAKER) (test code = 2.2 mg/dL 1.6-2.6 627) Director Of Enterprise Architecture ID - HIEN [facility] W/PLT COUNT & AUTO [id number] 04:53:46 Test Item Value Reference Range Interpretation [...] PERCENT (BEAKER) (test code = 2801) POCT-GLUCOSE [id number] 21:34:14 Test Item Value Reference Range Interpretation Comments POC-GLUCOSE METER 260 mg/dL 70-110 H : TESTED A T [facility] 6720 (BEAKER) (test code = [facility], 1538) [address]: Director Of Enterprise Architecture/Techni kelle ID = [id number] for HUMBERTO GHADA HAMLIN POCT-GLUCOSE [id number] 16:27:30 Test Item Value Reference Range Interpretation Comments POC-GLUCOSE METER 170 mg/dL 70-110 H : TESTED A T [facility] 6720 (BEAKER) (test code = [facility], 1538) [address]: Director Of Enterprise Architecture/Techni kelle ID = [id number] for Soledad Rivera 2D Echo W/Doppler(CW/PW/Color)2021-06-09 16:08:58Ejection FractionSLEH ECHO HEARTLAB [facility]2D Echo W/Doppler(CW/PW/Color)2021-06-09 16:08:58Ejection FractionSLEH ECHO HEARTLAB [facility]2D Echo W/Doppler(CW/PW/Color) 2021-06-09 16:08:58Ejection FractionSLEH [facility]CHO [facility]CW/PW/Color)2021-06-09 16:08:58Ejection FractionSLEH ECHO HEARTLAB [facility]2D Echo W/Doppler(CW/PW/Color)2021-06-09 16:08:58Ejection FractionSLEH ECHO HEARTLAB [facility] W/Doppler(CW/PW/Color) 2021-06-09 16:08:58Ejection FractionSLEH ECHO HEARTLAB [facility]2D Echo W/Doppler(CW/PW/Color)2021-06-09 16:08:58Ejection FractionSLEH ECHO HEARTLAB [facility]2D Echo W/Doppler(CW/PW/Color)2021-06-09 16:08:58Ejection FractionSLEH ECHO HEARTLAB [facility] W/Doppler(CW/PW/Color) 2021-06-09 16:08:58Ejection FractionSLEH ECHO HEARTLAB [facility] W/Doppler(CW/PW/Color)2021-06-09 16:08:58Ejection FractionSLEH ECHO HEARTLAB [facility] W/Doppler(CW/PW/Color)2021-06-09 16:08:58Ejection FractionSLEH ECHO HEARTLAB [facility]PR[facility] W/Doppler(CW/PW/Color) 2021-06-09 16:08:58Ejection FractionSLEH ECHO HEARTLAB [facility] [id number] 16:06:54Ejection FractionSLEH ECHO HEARTLAB [facility] 2021-06-09 16:06:54Ejection FractionSLEH ECHO HEARTLAB [facility] [id number] 16:06:54Ejection FractionSLEH ECHO HEARTLAB [facility] 2021-06-09 16:06:54Ejection FractionSLEH ECHO HEARTLAB [facility] CenterTrans[facility] [id number] 16:06:54Ejection FractionSLEH ECHO HEARTLAB [facility]Trans[facility] 2021-06-09 16:06:54Ejection FractionSLEH ECHO HEARTLAB [facility] CenterTrans[facility] [id number] 16:06:54Ejection FractionSLEH ECHO HEARTLAB [facility]Trans[facility] 2021-06-09 16:06:54Ejection FractionSLEH ECHO HEARTLAB [facility] CenterTrans[facility] [id number] 16:06:54Ejection FractionSLEH ECHO HEARTLAB [facility] 2021-06-09 16:06:54Ejection FractionSLEH ECHO HEARTLAB [facility] CenterTrans[facility] [id number] 16:06:54Ejection FractionSLEH ECHO HEARTLAB [facility] CenterTrans[facility] echo 2021-06-09 16:06:54Ejection FractionSLEH ECHO HEARTLAB [facility] CenterPOCT-GLUCOSE [id number] 06:23:12 Test Item Value Reference Range Interpretation Comments POC-GLUCOSE METER 250 mg/dL 70-110 H : TESTED A T [facility] (BEAKER) (test code = [place], 1538) [address]: Director Of Enterprise Architecture/Techni kelle ID = [id number] for Tavia Bruce BASIC METABOLIC [id number] 04:37:07 Test Item Value Reference Range Interpretation [...] S NOT APPLICABLE FOR DIALYSIS PATIEN TS. Director Of Enterprise Architecture ID Bassam [place] [id number] 04:30:49 Test Item Value Reference Range Interpretation Comments PHOSPHORUS (BEAKER) (test code = 3.8 mg/dL 2.3-4.7 604) Director Of Enterprise Architecture ID Bassam [place] [id number] 04:30:48 Test Item Value Reference Range Interpretation Comments MAGNESIUM (BEAKER) (test code = 2.0 mg/dL 1.6-2.6 627) Director Of Enterprise Architecture ID - RAKAN WCBC W/PLT COUNT & AUTO [id number] 03:53:11 Test Item Value Reference Range Interpretation [...] (BEAKER) (test code = 2801) Hepatitis panel, [id number] 23:49:54 Test Item Value Reference Range Interpretation Comments Hep A IgM (test code = Nonreactive Nonreactive 12663-1) Hep B C IgM (test code = Nonreactive Nonreactive 74370-7) Hepatitis C Ab (test code = Nonreactive Nonreactive 59374-2) Hepatitis B surface antigen Nonreactive Nonreactive (test code = 5195-3) BRANDI (test code = BRANDI) Director Of Enterprise Architecture ID - DB Lab Interpretation (test Normal code = 37163-3) [facility] [id number] 23:49:54 Test Item Value Reference Range Interpretation Comments Hep A IgM (test code = Nonreactive Nonreactive 11041-6) Hep B C IgM (test code = Nonreactive Nonreactive 87659-4) Hepatitis C Ab (test code = Nonreactive Nonreactive 52271-1) Hepatitis B surface antigen Nonreactive Nonreactive (test code = 5195-3) BRANDI (test code = BRANDI) Director Of Enterprise Architecture ID - DB Lab Interpretation (test Normal code = 18142-9) [facility] panel, [id number] 23:49:54 Test Item Value Reference Range Interpretation Comments Hep A IgM (test code = Nonreactive Nonreactive 44596-6) Hep B C IgM (test code = Nonreactive Nonreactive 00325-6) Hepatitis C Ab (test code = Nonreactive Nonreactive 80818-5) Hepatitis B surface antigen Nonreactive Nonreactive (test code = 5195-3) BRANDI (test code = BRANDI) Director Of Enterprise Architecture ID - DB Lab Interpretation (test Normal code = 71966-0) [facility] panel, [id number] 23:49:54 Test Item Value Reference Range Interpretation Comments Hep A IgM (test code = Nonreactive Nonreactive 25750-1) Hep B C IgM (test code = Nonreactive Nonreactive 61360-1) Hepatitis C Ab (test code = Nonreactive Nonreactive 64020-3) Hepatitis B surface antigen Nonreactive Nonreactive (test code = 5195-3) BRANDI (test code = BRANDI) Director Of Enterprise Architecture ID - DB Lab Interpretation (test Normal code = 52314-9) [facility] panel, [id number] 23:49:54 Test Item Value Reference Range Interpretation Comments Hep A IgM (test code = Nonreactive Nonreactive 94170-3) Hep B C IgM (test code = Nonreactive Nonreactive 06972-2) Hepatitis C Ab (test code = Nonreactive Nonreactive 46082-1) Hepatitis B surface antigen Nonreactive Nonreactive (test code = 5195-3) BRANDI (test code = BRANDI) Director Of Enterprise Architecture ID - DB Lab Interpretation (test Normal code = 19256-5) [facility] panel, [id number] 23:49:54 Test Item Value Reference Range Interpretation Comments Hep A IgM (test code = Nonreactive Nonreactive 99020-5) Hep B C IgM (test code = Nonreactive Nonreactive 29266-1) Hepatitis C Ab (test code = Nonreactive Nonreactive 41548-6) Hepatitis B surface antigen Nonreactive Nonreactive (test code = 5195-3) BRANDI (test code = BRANDI) Director Of Enterprise Architecture ID - DB Lab Interpretation (test Normal code = 73051-9) [facility] panel, [id number] 23:49:54 Test Item Value Reference Range Interpretation Comments Hep A IgM (test code = Nonreactive Nonreactive 40900-4) Hep B C IgM (test code = Nonreactive Nonreactive 85759-3) Hepatitis C Ab (test code = Nonreactive Nonreactive 99371-5) Hepatitis B surface antigen Nonreactive Nonreactive (test code = 5195-3) BRANDI (test code = BRANDI) Director Of Enterprise Architecture ID - DB Lab Interpretation (test Normal code = 54141-1) [facility] panel, [id number] 23:49:54 Test Item Value Reference Range Interpretation Comments Hep A IgM (test code = Nonreactive Nonreactive 54515-5) Hep B C IgM (test code = Nonreactive Nonreactive 38114-2) Hepatitis C Ab (test code = Nonreactive Nonreactive 41048-8) Hepatitis B surface antigen Nonreactive Nonreactive (test code = 5195-3) BRANDI (test code = BRANDI) Director Of Enterprise Architecture ID - DB Lab Interpretation (test Normal code = 66552-2) [facility] panel, [id number] 23:49:54 Test Item Value Reference Range Interpretation Comments Hep A IgM (test code = Nonreactive Nonreactive 00891-5) Hep B C IgM (test code = Nonreactive Nonreactive 06348-8) Hepatitis C Ab (test code = Nonreactive Nonreactive 88090-4) Hepatitis B surface antigen Nonreactive Nonreactive (test code = 5195-3) BRANDI (test code = BRANDI) Director Of Enterprise Architecture ID - DB Lab Interpretation (test Normal code = 03541-5) [facility] panel, [id number] 23:49:54 Test Item Value Reference Range Interpretation Comments Hep A IgM (test code = Nonreactive Nonreactive 87140-9) Hep B C IgM (test code = Nonreactive Nonreactive 53848-7) Hepatitis C Ab (test code = Nonreactive Nonreactive 35197-1) Hepatitis B surface antigen Nonreactive Nonreactive (test code = 5195-3) BRANDI (test code = BRANDI) Director Of Enterprise Architecture ID - DB Lab Interpretation (test Normal code = 26722-0) [facility] panel, [id number] 23:49:54 Test Item Value Reference Range Interpretation Comments Hep A IgM (test code = Nonreactive Nonreactive 14692-9) Hep B C IgM (test code = Nonreactive Nonreactive 86758-5) Hepatitis C Ab (test code = Nonreactive Nonreactive 95515-6) Hepatitis B surface antigen Nonreactive Nonreactive (test code = 5195-3) BRANDI (test code = BRANDI) Director Of Enterprise Architecture ID - DB Lab Interpretation (test Normal code = 64285-2) [facility] panel, [id number] 23:49:54 Test Item Value Reference Range Interpretation Comments Hep A IgM (test code = Nonreactive Nonreactive 86487-8) Hep B C IgM (test code = Nonreactive Nonreactive 30207-8) Hepatitis C Ab (test code = Nonreactive Nonreactive 64669-6) Hepatitis B surface antigen Nonreactive Nonreactive (test code = 5195-3) BRANDI (test code = BRANDI) Director Of Enterprise Architecture ID - DB Lab Interpretation (test Normal code = 00711-9) [facility] PANEL, [id number] 23:49:54 Test Item Value Reference Range Interpretation Comments HEPATITIS A IGM ANTIBODY (BEAKER) Nonreactive Nonreactive (test code = 498) HEPATITIS B CORE IGM ANTIBODY Nonreactive Nonreactive (BEAKER) (test code = 645) HEPATITIS C ANTIBODY (BEAKER) Nonreactive Nonreactive (test code = 367) HEPATITIS B SURFACE ANTIGEN (2) Nonreactive Nonreactive (BEAKER) (test code = 2585) Director Of Enterprise Architecture ID - DBPOCT-GLUCOSE [id number] 21:22:04 Test Item Value Reference Range Interpretation Comments POC-GLUCOSE METER 193 mg/dL 70-110 H : TESTED A T [facility] 6720 (BEAKER) (test code = [facility] [place], 1538) [address]: Director Of Enterprise Architecture/Techni kelle ID = [id number] for Tavia Bruce Hepatitis B surface [id number] 13:29:36 Test Item Value Reference Range Interpretation Comments Hepatitis B surface Nonreactive Nonreactive antigen (test code = 5195-3) BRANDI (test code = BRANDI) Specimen is considered negative for HBsAg. Lab Interpretation (test Normal code = 71133-7) [facility] B surface [id number] 13:29:36 Test Item Value Reference Range Interpretation Comments Hepatitis B surface Nonreactive Nonreactive antigen (test code = 5195-3) BRANDI (test code = BRANDI) Specimen is considered negative for HBsAg. Lab Interpretation (test Normal code = 61940-3) [facility] B surface [id number] 13:29:36 Test Item Value Reference Range Interpretation Comments Hepatitis B surface Nonreactive Nonreactive antigen (test code = 5195-3) BRANDI (test code = BRANDI) Specimen is considered negative for HBsAg. Lab Interpretation (test Normal code = 83048-9) [facility] B surface [id number] 13:29:36 Test Item Value Reference Range Interpretation Comments Hepatitis B surface Nonreactive Nonreactive antigen (test code = 5195-3) BRANDI (test code = BRANDI) Specimen is considered negative for HBsAg. Lab Interpretation (test Normal code = 37773-9) [facility] B surface [id number] 13:29:36 Test Item Value Reference Range Interpretation Comments Hepatitis B surface Nonreactive Nonreactive antigen (test code = 5195-3) BRANDI (test code = BRANDI) Specimen is considered negative for HBsAg. Lab Interpretation (test Normal code = 26935-7) [facility] B surface [id number] 13:29:36 Test Item Value Reference Range Interpretation Comments Hepatitis B surface Nonreactive Nonreactive antigen (test code = 5195-3) BRANDI (test code = BRANDI) Specimen is considered negative for HBsAg. Lab Interpretation (test Normal code = 25556-6) [facility] B surface [id number] 13:29:36 Test Item Value Reference Range Interpretation Comments Hepatitis B surface Nonreactive Nonreactive antigen (test code = 5195-3) BRANDI (test code = BRANDI) Specimen is considered negative for HBsAg. Lab Interpretation (test Normal code = 45992-5) [facility] surface [id number] 13:29:36 Test Item Value Reference Range Interpretation Comments Hepatitis B surface Nonreactive Nonreactive antigen (test code = 5195-3) BRANDI (test code = BRANDI) Specimen is considered negative for HBsAg. Lab Interpretation (test Normal code = 95187-7) [facility] surface [id number] 13:29:36 Test Item Value Reference Range Interpretation Comments Hepatitis B surface Nonreactive Nonreactive antigen (test code = 5195-3) BRANDI (test code = BRANDI) Specimen is considered negative for HBsAg. Lab Interpretation (test Normal code = 97851-7) [facility]Hep[facility]is[facility] B surface [id number] 13:29:36 Test Item Value Reference Range Interpretation Comments Hepatitis B surface Nonreactive Nonreactive antigen (test code = 5195-3) BRANDI (test code = BRANDI) Specimen is considered negative for HBsAg. Lab Interpretation (test Normal code = 78845-2) [facility] B surface [id number] 13:29:36 Test Item Value Reference Range Interpretation Comments Hepatitis B surface Nonreactive Nonreactive antigen (test code = 5195-3) BRANDI (test code = BRANDI) Specimen is considered negative for HBsAg. Lab Interpretation (test Normal code = 42039-2) [facility] B surface [id number] 13:29:36 Test Item Value Reference Range Interpretation Comments Hepatitis B surface Nonreactive Nonreactive antigen (test code = 5195-3) BRANDI (test code = BRANDI) Specimen is considered negative for HBsAg. Lab Interpretation (test Normal code = 93249-6) [facility] SURFACE [id number] 13:29:36 Test Item Value Reference Range Interpretation Comments HEPATITIS B SURFACE ANTIGEN (2) Nonreactive Nonreactive (BEAKER) (test code = 2585) Specimen is considered negative for HBsAg.U/S, ABDOMINAL, [id number] 13:10:00Abdomen limited area? Add comment if clarification is needed.- >LiverReason for exam:->hepatic nodularity reported [facility] : 1955 Sex: FFINAL REPORT TECHNIQUE: [...] in the gallbladder. No gallbladder wall thickening, pericholecystic fluid, or distention. Negative sonographic Mills sign.Common bile [...] imaging is recommended. Small right pleural effusion. IMPRESSION: 1.Stones and sludge in the gallbladder with a dilated common bile duct. Further evaluation with a MRI of theabdomen with and without intravenous contrast with MRCP is recommended to evaluate for a common bileduct obstruction. 2.The thickening of the gallbladder wall is likely due to the liver disease given the lack of gallbladder distention. 3.There is heterogeneous liver echotexture with questionable liver nodularity. Consider further evaluation for underlying liver disease to exclude cirrhosis. Signed: Florian Webbort Verified Date/Time: 06/08/2021 13:10:45 SARS-COV2/RT-PCR ([facility])2021-06-08 12:35:29 Test Item Value Reference Range Interpretation Comments SARS-COV2/RT-PCR (test Negative Not Detected, Negative, code = 6798540) See external report for linked test SARS-COV-[address] [facility] FILIPE (test code = 7951026) Negative result for this test determines that [...] justifying the authorization of the emergency use ofin vitro diagnostic tests for detection and/or diagnosis of COVID-19 is terminated under Section 564(b)(2) of the Act or the EUA is revoked under Section 564(g) of the Act.Fact Sheet for Healthcare Prov iders:https://www.[employer]com/sites/default/files/product/documents/Fact_Sheet_HC _Bbkgiayjo_Mmgz_YQWT-LxF-6.pdfFact Sheet for Healthcare Patients:https://www.[employer]/sites/default/files/product/docume nts/Icfa_Pnuxy_Karozblo_Dbwt_XOFM-PjI-0.pdfPerforming Laboratory:[place] [address], [place] [address]Arljnjr D, 25-Hydroxy 2021-06-08 11:10:06 Test Item Value Reference Range Interpretation Comments Vitamin D 25-Hydroxy 16.7 ng/mL 6.6-49.9 (test code = 2764) BRANDI (test code = BRANDI) Effective 01/12/2017: Reference Range ChangeNew: 6.6-49.9 ng/mL Previous: 13.0-47.8 ng/mL Recommended Vitamin D Target Range: 30.0-40.0 ng/mLOperator ID - DB Lab Interpretation (test Normal code = 80268-1) [facility], 92-[id number] 11:10:06 Test Item Value Reference Range Interpretation Comments Vitamin D 25-Hydroxy 16.7 ng/mL 6.6-49.9 (test code = 2764) BRANDI (test code = BRANDI) Effective 01/12/2017: Reference Range ChangeNew: 6.6-49.9 ng/mL Previous: 13.0-47.8 ng/mL Recommended Vitamin D Target Range: 30.0-40.0 ng/mLOperator ID - DB Lab Interpretation (test Normal code = 87722-0) [facility], 75-[id number] 11:10:06 Test Item Value Reference Range Interpretation Comments Vitamin D 25-Hydroxy 16.7 ng/mL 6.6-49.9 (test code = 2764) BRANDI (test code = BRANDI) Effective 01/12/2017: Reference Range ChangeNew: 6.6-49.9 ng/mL Previous: 13.0-47.8 ng/mL Recommended Vitamin D Target Range: 30.0-40.0 ng/mLOperator ID - DB Lab Interpretation (test Normal code = 51459-3) [facility], 59-[id number] 11:10:06 Test Item Value Reference Range Interpretation Comments Vitamin D 25-Hydroxy 16.7 ng/mL 6.6-49.9 (test code = 2764) BRANDI (test code = BRANDI) Effective 01/12/2017: Reference Range ChangeNew: 6.6-49.9 ng/mL Previous: 13.0-47.8 ng/mL Recommended Vitamin D Target Range: 30.0-40.0 ng/mLOperator ID - DB Lab Interpretation (test Normal code = 44332-7) [facility], 81-[id number] 11:10:06 Test Item Value Reference Range Interpretation Comments Vitamin D 25-Hydroxy 16.7 ng/mL 6.6-49.9 (test code = 2764) BRANDI (test code = BRANDI) Effective 01/12/2017: Reference Range ChangeNew: 6.6-49.9 ng/mL Previous: 13.0-47.8 ng/mL Recommended Vitamin D Target Range: 30.0-40.0 ng/mLOperator ID - DB Lab Interpretation (test Normal code = 27801-6) [facility], 45-[id number] 11:10:06 Test Item Value Reference Range Interpretation Comments Vitamin D 25-Hydroxy 16.7 ng/mL 6.6-49.9 (test code = 2764) BRANDI (test code = BRANDI) Effective 01/12/2017: Reference Range ChangeNew: 6.6-49.9 ng/mL Previous: 13.0-47.8 ng/mL Recommended Vitamin D Target Range: 30.0-40.0 ng/mLOperator ID - DB Lab Interpretation (test Normal code = 62416-9) [facility], 34-Qzbeozo2471-04-07 11:10:06 Test Item Value Reference Range Interpretation Comments Vitamin D 25-Hydroxy 16.7 ng/mL 6.6-49.9 (test code = 2764) BRANDI (test code = BRANDI) Effective 01/12/2017: Reference Range ChangeNew: 6.6-49.9 ng/mL Previous: 13.0-47.8 ng/mL Recommended Vitamin D Target Range: 30.0-40.0 ng/mLOperator ID - DB Lab Interpretation (test Normal code = 08825-6) [facility], 67-[id number] 11:10:06 Test Item Value Reference Range Interpretation Comments Vitamin D 25-Hydroxy 16.7 ng/mL 6.6-49.9 (test code = 2764) BRANDI (test code = BRANDI) Effective 01/12/2017: Reference Range ChangeNew: 6.6-49.9 ng/mL Previous: 13.0-47.8 ng/mL Recommended Vitamin D Target Range: 30.0-40.0 ng/mLOperator ID - DB Lab Interpretation (test Normal code = 71645-9) [facility], 80-[id number] 11:10:06 Test Item Value Reference Range Interpretation Comments Vitamin D 25-Hydroxy 16.7 ng/mL 6.6-49.9 (test code = 2764) BRANDI (test code = BRANDI) Effective 01/12/2017: Reference Range ChangeNew: 6.6-49.9 ng/mL Previous: 13.0-47.8 ng/mL Recommended Vitamin D Target Range: 30.0-40.0 ng/mLOperator ID - DB Lab Interpretation (test Normal code = 36139-5) [facility], 95-Woeycmv0707-36-07 11:10:06 Test Item Value Reference Range Interpretation Comments Vitamin D 25-Hydroxy 16.7 ng/mL 6.6-49.9 (test code = 2764) BRANDI (test code = BRANDI) Effective 01/12/2017: Reference Range ChangeNew: 6.6-49.9 ng/mL Previous: 13.0-47.8 ng/mL Recommended Vitamin D Target Range: 30.0-40.0 ng/mLOperator ID - DB Lab Interpretation (test Normal code = 95723-8) [facility], 23-Yjbsbkv2053-15-07 11:10:06 Test Item Value Reference Range Interpretation Comments Vitamin D 25-Hydroxy 16.7 ng/mL 6.6-49.9 (test code = 2764) BRANDI (test code = BRANDI) Effective 01/12/2017: Reference Range ChangeNew: 6.6-49.9 ng/mL Previous: 13.0-47.8 ng/mL Recommended Vitamin D Target Range: 30.0-40.0 ng/mLOperator ID - DB Lab Interpretation (test Normal code = 17963-2) [facility], 67-Esuykpq1070-13-07 11:10:06 Test Item Value Reference Range Interpretation Comments Vitamin D 25-Hydroxy 16.7 ng/mL 6.6-49.9 (test code = 2764) BRANDI (test code = BRANDI) Effective 01/12/2017: Reference Range ChangeNew: 6.6-49.9 ng/mL Previous: 13.0-47.8 ng/mL Recommended Vitamin D Target Range: 30.0-40.0 ng/mLOperator ID - DB Lab Interpretation (test Normal code = 11060-1) [facility], 57-[id number] 11:10:06 Test Item Value Reference Range Interpretation Comments VITAMIN D 25-OH (BEAKER) (test 16.7 ng/mL 6.6-49.9 code = 2764) Effective 01/12/2017: Reference Range ChangeNew: 6.6-49.9 ng/mL Previous: 13.0- 47.8 ng/mLRecommended Vitamin D Target Range: 30.0-40.0 ng/mLOperator ID - DB PTH, [id number] 11:05:08 Test Item Value Reference Range Interpretation Comments PTH (test code = 2731-8) 449.7 pg/mL 8.5-72.5 H BRANDI (test code = BRANDI) Director Of Enterprise Architecture ID - ADMIN Lab Interpretation (test Abnormal code = 16636-4) [facility], [id number] 11:05:08 Test Item Value Reference Range Interpretation Comments PTH (test code = 2731-8) 449.7 pg/mL 8.5-72.5 H BRANDI (test code = BRANDI) Director Of Enterprise Architecture ID - ADMIN Lab Interpretation (test Abnormal code = 46051-0) [facility], [id number] 11:05:08 Test Item Value Reference Range Interpretation Comments PTH (test code = 2731-8) 449.7 pg/mL 8.5-72.5 H BRANDI (test code = BRANDI) Director Of Enterprise Architecture ID - ADMIN Lab Interpretation (test Abnormal code = 31951-1) [facility], [id number] 11:05:08 Test Item Value Reference Range Interpretation Comments PTH (test code = 2731-8) 449.7 pg/mL 8.5-72.5 H BRANDI (test code = BRANDI) Director Of Enterprise Architecture ID - ADMIN Lab Interpretation (test Abnormal code = 67169-7) [facility], [id number] 11:05:08 Test Item Value Reference Range Interpretation Comments PTH (test code = 2731-8) 449.7 pg/mL 8.5-72.5 H BRANDI (test code = BRANDI) Director Of Enterprise Architecture ID - ADMIN Lab Interpretation (test Abnormal code = 26626-3) [facility], [id number] 11:05:08 Test Item Value Reference Range Interpretation Comments PTH (test code = 2731-8) 449.7 pg/mL 8.5-72.5 H BRANDI (test code = BRANDI) Director Of Enterprise Architecture ID - ADMIN Lab Interpretation (test Abnormal code = 21841-2) [facility], [id number] 11:05:08 Test Item Value Reference Range Interpretation Comments PTH (test code = 2731-8) 449.7 pg/mL 8.5-72.5 H BRANDI (test code = BRANDI) Director Of Enterprise Architecture ID - ADMIN Lab Interpretation (test Abnormal code = 91496-1) [facility], [id number] 11:05:08 Test Item Value Reference Range Interpretation Comments PTH (test code = 2731-8) 449.7 pg/mL 8.5-72.5 H BRANDI (test code = BRANDI) Director Of Enterprise Architecture ID - ADMIN Lab Interpretation (test Abnormal code = 11237-8) [facility], [id number] 11:05:08 Test Item Value Reference Range Interpretation Comments PTH (test code = 2731-8) 449.7 pg/mL 8.5-72.5 H BRANDI (test code = BRANDI) Director Of Enterprise Architecture ID - ADMIN Lab Interpretation (test Abnormal code = 50869-6) [facility], [id number] 11:05:08 Test Item Value Reference Range Interpretation Comments PTH (test code = 2731-8) 449.7 pg/mL 8.5-72.5 H BRANDI (test code = BRANDI) Director Of [employer] ID - ADMIN Lab Interpretation (test Abnormal code = 94386-3) [facility], [id number] 11:05:08 Test Item Value Reference Range Interpretation Comments PTH (test code = 2731-8) 449.7 pg/mL 8.5-72.5 H BRANDI (test code = BRANDI) Director Of [employer] ID - ADMIN Lab Interpretation (test Abnormal code = 80765-4) [facility], [id number] 11:05:08 Test Item Value Reference Range Interpretation Comments PTH (test code = 2731-8) 449.7 pg/mL 8.5-72.5 H BRANDI (test code = BRANDI) Director Of [employer] ID - ADMIN Lab Interpretation (test Abnormal code = 51891-9) [facility], [id number] 11:05:08 Test Item Value Reference Range Interpretation Comments PARATHYROID HORMONE INTACT 449.7 pg/mL 8.5-72.5 H (BEAKER) (test code = 577) Director Of [employer] ID - [id number] 09:50:35 Test Item Value Reference Range Interpretation Comments FERRITIN (BEAKER) (test code = 926.02 ng/mL 5.00-275.00 H 361) Director Of [employer] ID - ADMINIRON, TIBC, % SAT. (WITHOUT FERRITIN)2021-06-08 09:30:51 Test Item Value Reference Range Interpretation Comments IRON (BEAKER) (test code = 547) 110.0 ug/dL 40.0-160.0 TOTAL IRON BINDING CAPACITY 135 ug/dL 250-450 L (BEAKER) (test code = 769) IRON % SATURATION (2) (BEAKER) 81 % 20-55 H (test code = 2590) Director Of [employer] ID - ADMINPOCT-GLUCOSE [id number] 07:11:26 Test Item Value Reference Range Interpretation Comments POC-GLUCOSE METER 199 mg/dL 70-110 H : TESTED A T [facility] (BEAKER) (test code = [place], 1538) [address]: Director Of Enterprise Architecture/Techni kelle ID = [id number] for Tavia Bruce Vitamin [id number] 06:28:47 Test Item Value Reference Range Interpretation Comments Vitamin B12 (test code = 1626 pg/mL 213-816 H 2-9) BRANDI (test code = BRANDI) Director Of Enterprise Architecture ID - ADMIN Lab Interpretation (test Abnormal code = 91579-7) [id number] 06:28:47 Test Item Value Reference Range Interpretation Comments Vitamin B12 (test code = 1626 pg/mL 213-816 H 2-9) BRANDI (test code = BRANDI) Director Of Enterprise Architecture ID - ADMIN Lab Interpretation (test Abnormal code = 23102-0) [facility] [id number] 06:28:47 Test Item Value Reference Range Interpretation Comments Vitamin B12 (test code = 1626 pg/mL 213-816 H 2132-9) BRANDI (test code = BRANDI) Director Of [employer] Architecture ID - ADMIN Lab Interpretation (test Abnormal code = 06732-3) [facility] [id number] 06:28:47 Test Item Value Reference Range Interpretation Comments Vitamin B12 (test code = 1626 pg/mL 213-816 H 2132-9) BRANDI (test code = BRANDI) Director Of [employer] Architecture ID - ADMIN Lab Interpretation (test Abnormal code = 61693-2) [facility] [id number] 06:28:47 Test Item Value Reference Range Interpretation Comments Vitamin B12 (test code = 1626 pg/mL 213-816 H 2132-9) BRANDI (test code = BRANDI) Director Of Enterprise Architecture ID - ADMIN Lab Interpretation (test Abnormal code = 89823-1) [facility] [id number] 06:28:47 Test Item Value Reference Range Interpretation Comments Vitamin B12 (test code = 1626 pg/mL 213-816 H 2132-9) BRANDI (test code = BRANDI) Director Of Enterprise Architecture ID - ADMIN Lab Interpretation (test Abnormal code = 11961-6) [facility] [id number] 06:28:47 Test Item Value Reference Range Interpretation Comments Vitamin B12 (test code = 1626 pg/mL 213-816 H 2132-9) BRANDI (test code = BRANDI) Director Of [employer] Architecture ID - ADMIN Lab Interpretation (test Abnormal code = 65962-2) [facility] [id number] 06:28:47 Test Item Value Reference Range Interpretation Comments Vitamin B12 (test code = 1626 pg/mL 213-816 H 2132-9) BRANDI (test code = BRANDI) Director Of Enterprise Architecture ID - ADMIN Lab Interpretation (test Abnormal code = 12663-4) [facility] [id number] 06:28:47 Test Item Value Reference Range Interpretation Comments Vitamin B12 (test code = 1626 pg/mL 213-816 H 2132-9) BRANDI (test code = BRANDI) Director Of [employer] Architecture ID - ADMIN Lab Interpretation (test Abnormal code = 72773-8) [facility] [id number] 06:28:47 Test Item Value Reference Range Interpretation Comments Vitamin B12 (test code = 1626 pg/mL 213-816 H 2132-9) BRANDI (test code = BRANDI) Director Of [employer] Architecture ID - ADMIN Lab Interpretation (test Abnormal code = 20147-7) [facility] [id number] 06:28:47 Test Item Value Reference Range Interpretation Comments Vitamin B12 (test code = 1626 pg/mL 213-816 H 2132-9) BRANDI (test code = BRANDI) Director Of Enterprise Architecture ID - ADMIN Lab Interpretation (test Abnormal code = 90088-9) [facility] [id number] 06:28:47 Test Item Value Reference Range Interpretation Comments Vitamin B12 (test code = 1626 pg/mL 213-816 H 2132-9) BRANDI (test code = BRANDI) Director Of Enterprise Architecture ID - ADMIN Lab Interpretation (test Abnormal code = 99026-0) [facility] [id number] 06:28:47 Test Item Value Reference Range Interpretation Comments VITAMIN B12 (BEAKER) (test code = 1626 pg/mL 213-816 H 774) Director Of Enterprise Architecture ID - ADMINBASIC METABOLIC [id number] 06:22:27 Test Item Value Reference Range Interpretation [...] S NOT APPLICABLE FOR DIALYSIS PATIEN TS. Director Of Enterprise Architecture ID - [id number] 06:08:16 Test Item Value Reference Range Interpretation Comments MAGNESIUM (BEAKER) (test code = 2.3 mg/dL 1.6-2.6 627) Director Of Enterprise Architecture ID - [id number] 06:08:16 Test Item Value Reference Range Interpretation Comments PHOSPHORUS (BEAKER) (test code = 5.6 mg/dL 2.3-4.7 H 604) Director Of Enterprise Architecture ID - DBPROTHROMBIN TIME/[id number] 05:55:08 Test Item Value Reference Range Interpretation Comments PROTIME (BEAKER) 14.2 seconds 11.9-14.2 (test code = 759) INR (BEAKER) (test 1.12 See_Comment [Automat ed message] code = 370) The system [employer] generated this result transmitted ref erence range: <=5.90. The reference range was not used to int erpret this result as normal/abnormal . RECOMMENDED COUMADIN/WARFARIN INR THERAPY RANGESSTANDARD DOSE: 2.0 - 3.0 Includes: PROPHYLAXIS for venous thrombosis, systemic embolization; TREATMENT for venous thrombosis and/or pulmonary embolus.HIGH RISK: Target INR is 2.5-3.5 for patients with mechanical heart valves.CBC W/PLT COUNT & AUTO [id number] 05:42:08 Test Item Value Reference Range Interpretation [...] = 2801) RAD, CHEST, 1 VIEW, NON [id number] 02:35:00Reason for exam:->shortness of breathShould this be performed at the bedside?->Yes [facility] : 1955 Sex: FFINAL REPORT RAD, CHEST, 1 VIEW, NON DEPT INDICATION: shortness of breath COMPARISON: None FINDINGS: Portable frontal view of the chest. 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 Lungs and pleura: No airspace consolidation or effusion. No pneumothorax. Heart and mediastinum: Unremarkable cardiomediastinal contours. Additional findings: Status post median sternotomy. Signed: Andrew Cary MDReport Verified Date/Time: 06/08/2021 02:35:39 POCT-GLUCOSE [id number] 23:26:33 Test Item Value Reference Range Interpretation Comments POC-GLUCOSE METER 279 mg/dL 70-110 H : TESTED A T [facility] (BEAKER) (test code = [place], 1538) [address]: Director Of Enterprise Architecture/Techni kelle ID = [id number] for Tavia Bruce COMPREHENSIVE METABOLIC [id number] 22:28:11 Test Item Value Reference Range Interpretation [...] H (BEAKER) (test code = 652) CALCIUM (AKER) 8.2 mg/dL 8.4-10.2 L (test code = 697) AST (SGOT) (AKER) 19 U/L 5-34 (test code = 353) ALT (SGPT) (AKER) 15 U/L 6-55 (test code = 347) EGFR ([facility]) (test 8 mL/min/1.73 ESTIMAT ED GFR IS code = 1092) sq m NOT ACCURATE CREATININE CLEARANCE IN PREDICTING GLOMERULAR FILTRATION RATE . ESTIMATED GFR I S NOT APPLICABLE FOR DIALYSIS PATIEN TS. Director Of Enterprise Architecture ID - [facility], [id number] 22:19:31 Test Item Value Reference Range Interpretation Comments Vancomycin Rm (test 16.1 ug/mL code = 94707-2) BRANDI (test code = Reference Range: No BRANDI) NormalsOperator ID - DB [facility], [id number] 22:19:31 Test Item Value Reference Range Interpretation Comments Vancomycin Rm (test 16.1 ug/mL code = 69217-3) BRANDI (test code = Reference Range: No BRANDI) NormalsOperator ID - DB [facility], [id number] 22:19:31 Test Item Value Reference Range Interpretation Comments Vancomycin Rm (test 16.1 ug/mL code = 57829-4) BRANDI (test code = Reference Range: No BRANDI) NormalsOperator ID - DB [facility], [id number] 22:19:31 Test Item Value Reference Range Interpretation Comments Vancomycin Rm (test 16.1 ug/mL code = 01160-9) BRANDI (test code = Reference Range: No BRANDI) NormalsOperator ID - DB [facility], [id number] 22:19:31 Test Item Value Reference Range Interpretation Comments Vancomycin Rm (test 16.1 ug/mL code = 32545-5) BRANDI (test code = Reference Range: No BRANDI) NormalsOperator ID - DB [facility], [id number] 22:19:31 Test Item Value Reference Range Interpretation Comments Vancomycin Rm (test 16.1 ug/mL code = 89934-8) BRANDI (test code = Reference Range: No BRANDI) NormalsOperator ID - DB [facility], [id number] 22:19:31 Test Item Value Reference Range Interpretation Comments Vancomycin Rm (test 16.1 ug/mL code = 69158-2) BRANDI (test code = Reference Range: No BRANDI) NormalsOperator ID - DB [facility], [id number] 22:19:31 Test Item Value Reference Range Interpretation Comments Vancomycin Rm (test 16.1 ug/mL code = 61272-9) BRANDI (test code = Reference Range: No BRANDI) NormalsOperator ID - DB [facility], [id number] 22:19:31 Test Item Value Reference Range Interpretation Comments Vancomycin Rm (test 16.1 ug/mL code = 87699-2) BRANDI (test code = Reference Range: No BRANDI) NormalsOperator ID - DB [facility], [id number] 22:19:31 Test Item Value Reference Range Interpretation Comments Vancomycin Rm (test 16.1 ug/mL code = 33249-0) BRANDI (test code = Reference Range: No BRANDI) NormalsOperator ID - DB [facility], [id number] 22:19:31 Test Item Value Reference Range Interpretation Comments Vancomycin Rm (test 16.1 ug/mL code = 63656-0) BRANDI (test code = Reference Range: No BRANDI) NormalsOperator ID - DB [facility], [id number] 22:19:31 Test Item Value Reference Range Interpretation Comments Vancomycin Rm (test 16.1 ug/mL code = 24032-9) BRANDI (test code = Reference Range: No BRANDI) NormalsOperator ID - DB [facility], [id number] 22:19:31 Test Item Value Reference Range Interpretation Comments VANCOMYCIN RANDOM (BEAKER) (test 16.1 ug/mL code = 523) Reference Range: No NormalsOperator ID - DBCBC W/PLT COUNT & AUTO [id number] 22:05:27 Test Item Value Reference Range Interpretation [...] Interpretation Comments POCT GLU (test code = 9586555036) 129 mg/dL 70-110 H Lab Interpretation (test code = Abnormal 47209-7) [facility] GLUCOSE (AUTOMATED)2021-05-22 17:41:02 Test Item Value Reference Range Interpretation Comments POCT GLU (test code = 4417853794) 120 mg/dL 70-110 H Lab Interpretation (test code = Abnormal 94011-8) [facility] GLUCOSE (AUTOMATED)2021-05-22 13:46:20 Test Item Value Reference Range Interpretation Comments POCT GLU (test code = 1596529562) 174 mg/dL 70-110 H Lab Interpretation (test code = Abnormal 74107-4) [facility] METABOLIC PANEL (NA, K, CL, CO2, GLUCOSE, BUN, CREATININE, CA)2021-05-22 10:34:14 Test Item Value Reference Range Interpretation Comments NA (test code = 128 mmol/L 135-145 L 9646269260) K (test code = 5.2 mmol/L 3.5-5.0 H 9576659590) CL (test code = 95 mmol/L 98-108 L 3189311030) CO2 TOTAL (test code = 24 mmol/L 23-31 4357624785) AGAP (test code = 2-16 2869791382) BUN (test code = 43 mg/dL 7-23 H 4876371305) GLUCOSE (test code = 182 mg/dL 70-110 H 0483248231) CREATININE (test code = 5.93 mg/dL 0.50-1.04 H 3104133914) CALCIUM (test code = 8.0 mg/dL 8.6-10.6 L 3184436929) eGFR (test code = mL/min/1.73m2 8056129453) BRANDI (test code = BRANDI) Association of [...] tests). Lab Interpretation Abnormal (test code = 97320-8) [facility] WITH [id number] 10:25:51 Test Item Value Reference Range Interpretation Comments WBC (test code = See_Comment [Automated 7890-2) message] The sy stem which generated this result transmitted reference range : 4.30 - 11.10 10*3/?L. The reference range was not used to interpret this result as normal/abnormal . RBC (test code = See_Comment L [Automated 669-8) message] The sy stem which generated this [...] (test code = 50.7 fL 39.0-49.9 H 18620-4) RDW-CV (test code = 14.6 % 12.0-15.5 788-0) PLT (test code = See_Comment L [Automated 777-3) message] The sy stem which generated this result transmitted reference range : 166 - 358 10*3/ ?L. The reference r alba was not used to interpret this result as normal/abnormal . MPV (test code = 11.2 fL 9.5-12.9 73505-2) NRBC/100 WBC (test See_Comment [Automat ed code = 5119002499) message] The system which generated this result transmitted reference range : 0.0 - 10.0 /100 WBCs. The refer ence range was not u sed to interpret th is result as normal/abnormal . NRBC x10^3 (test code <0.01 See_Comment [Auto mated = 1537232038) message] The s ystem which generated this result transmitted reference range : 10*3/?L. The reference range was not used to interpret this result as normal/abnormal . GRAN MAT (NEUT) % 75.4 % (test code = 770-8) IMM GRAN % (test code 0.70 % = 4489129626) LYMPH % (test code = 12.5 % 736-9) MONO % (test code = 10.3 % 5905-5) EOS % (test code = 0.8 % 713-8) BASO % (test code = 0.3 % 706-2) GRAN MAT x10^3(ANC) 4.54 10*3/uL 1.88-7.09 (test code = 9407551038) IMM GRAN x10^3 (test 0.04 10*3/uL 0.00-0.06 code = 0800868514) LYMPH x10^3 (test code 0.75 10*3/uL 1.32-3.29 L = 731-0) MONO x10^3 (test code 0.62 10*3/uL 0.33-0.92 = 742-7) EOS x10^3 (test code = 0.05 10*3/uL 0.03-0.39 711-2) BASO x10^3 (test code <0.03 0.01-0.07 = 704-7) Lab Interpretation Abnormal (test code = 32663-8) [facility] [id number] 05:24:06 Test Item Value Reference Range Interpretation Comments NT-proBNP (test code 840377 pg/mL See_Comment H [Autom ated = 1507142904) message] The system which generated this result transmitted reference range : <=125. The reference range was not used to interpret this result as normal/abnormal . BRANDI (test code = BRANDI) Biotin has been reported to cause a negative bias, interpret results relative to patient's use of biotin. Lab Interpretation Abnormal (test code = 93653-4) [facility] CenterGlucose, [id number] 04:46:54 Test Item Value Reference Range Interpretation Comments GLUCOSE (test code = 8832540224) 107 mg/dL 70-110 Lab Interpretation (test code = Normal 16576-0) [facility] CenterProtein Total [id number] 04:46:34 Test Item Value Reference Range Interpretation Comments T PROTEIN (test code = 2236904094) 6.1 g/dL 6.3-8.2 L Lab Interpretation (test code = Abnormal 51926-9) [facility] CenterLACTATE [id number] 04:46:18 Test Item Value Reference Range Interpretation Comments LDH (test code = 5718576066) 311 U/L 300-600 Lab Interpretation (test code = Normal 62957-9) [facility] CenterTROPONIN [id number] 00:24:29 Test Item Value Reference Interpretation Comments Range TROPONIN I (test 0.084 ng/mL See_Comment H [Automated code = 1751038562) message] The system which generated this result [...] biotin. Lab Interpretation Abnormal (test code = 65475-1) [facility] CenterCyto Pleural [id number] 23:21:29 Test Item Value Reference Range Interpretation Comments Case Report (test code = Non-Gynecologic 4027477953) Cytology ?Case: [id number] ?Authorizing Provider: ?Candido Robison, ?Collected: ? 05/20/2021 1604 ?Ordering Location: ? ? [facility] Medicine Surgery Unit ?Received: ?05/20/2021 1631 ?Pathologist: ? Mariana, ? MD Duc ?Specimen: ? ?PLEURAL, RIGHT ? Final Diagnosis (test h1kjsGDzMBEzo9onBFPot code = 8243687999) GFuZzEwMzNcZnRuYmpcdW MxIHtccnRmMVxlcGljOTY mFEkbcpIqTNVlxJYpO9Sp rbwcYYdlSW7gID1cgZjem GEqiEYzQCPxUkUnl3usd4 82bWOlx3kpBGIVdgsanIe 8xAhfL83sz8D4JakbL30p zMJaJGS7LDDvSXQlhNWwD BNpHGS8JZTznBNzI1iyPT NyPG4awgvaDVvaYRegUIU enPK4SDKyfNVwD0JjQXKy HOfwTFRzmwt9BnKxCq5hd GVyeTcyMFxwYXJkXHBsYW luXGJcZnMyMFxwYXIgQS4 gIFBMRVVSQSwgUklHSFQ7 NDNUW6WNU9IYLGESCNWaN xuUSQP7RPUjuwDnHBSyFR 0hMlWXIMIGPjKkTi9ZXS1 BTElHTkFOVCBDRUxMUyBc GtOjOLGUGHADN83PCX9PT VxwYXJccGFyIFBhdWwgWW 99jekvUT9JICFsiIVgcMS exJjvqp55TUY4AANeQuI5 LzIwMjJccHJvdGVjdDAgX HBsYWluXGZzMjAgICAyOj Z5KLVAEMFezwztYQQ5r7f ydGYxXHNzdGVjZjIyMDAw BZZkj2wnQQBhtPJtZmOpP zNcZnRuYmpcdWMxXGRlZm Zhe9wcc170wMVlb2ktDAE iMtU4bPBjXKOvtGtzzvg0 zJwnDhTkAWQhg9xdazYeD mNoYXJzZXQwIEFyaWFsO3 13KTJmJHngj7pjp1JlYGN duGXqu8Z8WKQHRKwwMnQg F755x1xtz8qhvuKxsEI2L ZBqGEU9HEusytTpbvQ4JP vmuPXtAyT4VHaoawOtJWe amfRjwrJtIop6CLWoL837 EIG0cQtrx2urDUN0RXZfM OQqFozdDt3obWDzU444DQ CsGTUFDDLumDv3NLNrtoU upbPatRERq647Z144b2dx DZOlihZwpNuBrmion6gkP 319XHBhcGVydzEyMjQwXH XbmXCqdAE6KLHgGC1juep qDFcaBTykFQIkbkO7QEPu wMCnP1HvRPHfOB1sqdylP JX3SUtbUORpBEF7GkFoOU Qnl8Lydwe7DbQckr2tkt0 0PRG6p8NolWeaZLS9ONT5 EoPhGt8xtHBtDUGqAB4gK nDieJAdUVThid19mSfsZK sdqdYfkZ8mXmBcQJUfoMV fJWZpMU4vkRHzFOKdvG9z cmxjXHBnYnJkcmhlYWRcc OskjwCvGd0xgUpgSOB6JQ hzM8tkvF1kWvK9LBcuC3z bhK7jWQa8FHutjRJ7RJFj aT2lGE4wvmomd6bfVMqjT CceSBMoxuM0dwH8AEPbwZ CjO6GhqT4tMSQsPY6cada cd9jiTLZ0LJciLVPzHBN5 EcWnZOFis6Nrbsu7EbHos 3BynTGuJWwwS97am481OQ CacsLnU6tmvJUjsrrffUA vkmpyHWhdccV9RLMfMBLb YWluXGYxXGZzMjBcbGFuZ zEwMzNcaGljaFxmMVxkYm AiQIRbMCgfA7nwUwXoV9I yXGZzMjBccGFyIEkgaGF2 YMNaXYBsx00wxEu0UZHwt vjnw7LyVGIlyNFbkIYsoY 9dwgSkw0csMBYrAVNsITD sK3FeKFO4hNBrMGRklMNz oYS6HF1vonUeKK8oCVAfY nkgcmVzaWRlbnRzLCBmZW uvh1xuQX2hRDLrzMjhtJ4 iuDH2EZPos9syhSTygJTn u5xpo8ToosNfJCklKUIdR PtqPFIxXDBjYO3zRTAieG IcodVge3O1IdfgzCOtmsf wVazwabM8KThhwihsTYGx ADnfL6qeSbDaZAWrkVbnM qvzt4SpPUXhMOLfKliwiM FyfX0= Final Diagnosis Comment p9otfZPdLVPdfDH1YtGgA (test code = 8470860814) XXyu8plq3BkkOAgvSKdJD atrDMgyrZjeh75dDX4fL7 9DR0dNNMbVpT5WEHfcsA9 Rjp0TXFxOXToiUOeL693t 6ysl0auwuGxfCP5yLbwIT IvybzgGdZ9XUfvABYaxjr uMSn5EJgtQRAlyYA7LHNc lPQvM6CeGWRoNO9jwyf7J ZF7ALiyAELmGqB7EIAqeH NoBDLzeVhqBSljg179PND 2PtYbYHAnkjIkdWsmoB2v ZnMyMCBTbWVhcnMgYXJlI VTteNGgJ9EayZPeVLSsIK 2kOXXhm0zpudAfXZOiJT6 xW71dxNRna4IiYRreKPxh I9JxnGWoTE8fYGTdb72aK ADmZW1gahCfMaONdfLuBQ djY99fruXuF4CcpEEwvKH awkBmQqqzAT8rXCUeei9= Clinical Information Clinical Hx: ESRD (test code = 6226211907) Gross Description (test w1tixWAlGNLbxHV7NdMeR code = 5844204550) HKyh8vea8PthYHnpRUtSW uhqNKapuYrcr44fWO1iX0 8II5xQXEpUlZ3NVLurlM2 Fck8XMKdSFBpnOQgT744c 9lji6bitoEwlYB3kJgxBW YlaarwKhJ5KFxtNCYfaop wTOn8WAswKURoxMX9RRLx nMKuK5ThSIOvFZ8dczx0Y AA9ACjzSATmZuI7KMJuzV IgETWnkPvtWKfbq490IBZ 5IaHaFFFjptW1MMmzKGEf T5JmN7KjVGjiRAX0YWPoL CBcXHQgMSBcXGZsIFxcbm Y2e2ltXZEyfAKqOID1LKz caWQgNTEwMDIgXFxkYiBP VxZyCpGfKBD6PJR9GGLoJ Jw4HMamP0UPXJXxVPV5NT WrKLx3WlN9VQb2PIMKEm4 oLWA7SPGiCBb6JJQ1CLT8 NCBcXHQgMiBcXGZsIFxcZ iBBcmlhbCBcXGZzIDEwIF qcndK6RAJrCCjpYQBpOnO ccGFyXGZzMjJccGFyIEEx LiAgUExFVVJBLCBSSUdIV QopWQpMTlEPOE8OFUWSWz BGTFVJRFxwYXIgUmVjZWl 3PVOzEjMtu2yusGOkIMYo OlphCE7wNNnzzPdeusEzc HVpZCBccGFyIFByZXBhcm XtSKBvd8rbTRTgBJfoJYG hcGFuaWNvbGFvdSBjeXRv p8WgolvoNS8cMRVlPf7mB I4kg3ZypURxjOIzg2Whja DyhbLqPSEigOlbzebov8b grQxla3PyxXKbNI90UZVv oYDlJAW9WO6ujOagKBY4 Disclaimer (test code = v6favAPlSFJbt6fhCJUxn 2604480977) GFuZzEwMzNcZnRuYmpcdW IpQUoteyRgTEqyi9CwR0R yMjAwMFxhbnNpXGRlZmxh kxdoTAPuQJF4paLwMNPvM VeeIEAtQFzwGc0akOZzbG xoMfXnACMni8bmdoNCKHn qQeHoI262PQRyYExls0tu p3PpLFIrvZGwv5M6ABLKa gggwOs4rVpfZ83iv1N6Sv kqN6rfTXBkKHEvL2XgRH0 iRGMkJzs6LMU5FVM6IOMt ZFJhX3HwIR6uXKFmaDYfV Jr8x2djvGcfGJHzSAQ5f2 qpCJhkzjIbOC5vkz8glXt 4e9lwytLrTWKzARGowVDR YXZhJ8HpfVqeYk2idTd4t BkuMcocRBW1Pwv8MG9kmp 81rtb6pTwvMLOafmlbHhS 2NApxLIZdudtfAYo5TBvd CGGqlQD7UIUqtTVuR1WyQ MSxAG8njcc0DUX7GFzeKP DsQrA5IVMjuAReEIPriTe lJLqfg740OOY0ClUhCM5n Y4Fst8P3wJ6swVOyVRAgo XNtCfAqFWZpoa6rgTKqDY hsv0OhTSA5paO3jSCnsHY zRHIgDA47Mytfa3NfLfuv s6XgG26bmFY0MSyqu5nhU X9tXyT1ufYiBJetc3fgdQ 9eBpS5LZuvDY2gCC8vBUR aoL0oqvadGXAoLdLturxm LWHrfVmakcFkEd8iuKiiP CV4HLubL3punN3xUsX4SH suT6ixtX9zVNs7GFbowIF 7QQPvaW3hSN3pabzal2lq YLzdYScmLYZniuJ6osS8T GVcjPLjV6AjaD5lGGMuOK 0pzdmbh6bkZTU4YEypSZG rSNR3XbIwBEVgb6Qhjxv9 KhHuf6TquXUpWJakX97jl 983CXXbamWvS8pbhTZrcg qdyGOlihvnVSbuhaQ2DVZ jynYlw0CcUJZvRJN3JRml EJgqsJYiZIBuwFhhz0kaC 3RscGFyXHBsYWluXGYxXG ZzMjBcbGFuZzEwMzNcaGl jaFxmMVxkYmNoXGYxXGxv Q9hvQiQsX6QqKGQfTdDcd BWgM2rfZBtcvjTyNCGofp IesZY6IIzyX9h2ZNCvypG dgCr4yyGiUrXkZATePFU8 XHegqGWaEFGfi5Viflcpe MFiHh7kaGJpJVPiiG2jJL HzXLQkGBapTS8nuPh6OSK SzLWymRNlSuRGEKSzLP85 okTqHRODxdnab4O7SOjfG ABoy6SveBDoC3jlv5YgXG Xgk99hOB2hj9O4l6jmIQB 1TC4zj2RyMIUchNKrjZSu BOXul2Pcqzqge2AsWMRdn eAfx8GtRSNknuTsaAKqSV WjvjCxxk0pnbLjXQKuIWJ iO8GjjskpjUdzofVcYXBh ir4gitIvJYN2EDYOMSUwZ PNhi9NbjE8ksINTDGE8hO Dhby9nkrQMmPCrXFYmqw2 9TBHtLC3iK9khBQUtGUYn ohZiiTKhy8NgIMDkwHF7p HAoVE4VSgVRr16mMYBvMW VFnfWwDSBzwEwkhXG8ypO 2uU3oSLeQPPUcBms+IFRo DORUEDNoAG5jrfAcn3Afb bCouFzzTELfuASnh9DbkE Dlk8XqhHdfu8YsrYTdaML kGK7yYRHzilrwYTIoKUDS HqNMVUTxceJ0i7RhFZJyR JIfCBP1yXlunmc1RVKwrW 1aXCZsM6uymrueGGajKCC sh2QwxZ0zcSPGtDHse4Ma fRVtoECKjEPuNM7jijRhT IbKTPcTCPF8vsXdGNXpi1 BgHHcvJ4xgD95zsJfweGp 0hRP9TUI3nX4gVew+IFxw YXJccGFyIEFwcHJvcHJpY VTkjLekskUqR3TemwDltA 8edDNmscZpXR5nZE6vN4R 4xETqFHOiznBkw3ykWFla dmUgYmVlbiByZXZpZXdlZ SAli8PcWNxnFLX4POasnf BpbmNsdWRpbmcgSCZFLCB UcFFutOSbZQQ8GAwxeaCc yfIzAL4ebR5ulMkkjV9ix QQqbYQ5qkmaUEDgWJQccR ilPJOaIV5aiURiFSQqtsS KyQgbqOFamS1gD7RpUTWb RPVtnu7xGVEmmW9kEQcxl 2VydmljZXMgYXJlIHBlcm Vgap8lWVNzfHESYR1YCIg lqMXdd3FwwqUvT0yXYQB3 NUQwNjYwMjgxKSBleGNlc YLnATVsqm39YFUynJ8vqQ ixMGHmnX1bfN0stTtbaF8 mVjZdQwScXMrtZZ0mZRBz T7mhoDOjBILnOSDzW7asY dQwtE6fxHsmKWujPrGjTq RwDJpuAUK3oZ== Embedded Images (test code = [id number]) [facility]2021-05-21 23:17:01 Test Item Value Reference Range Interpretation Comments POCT GLU (test code = 4889866652) 109 mg/dL 70-110 Lab Interpretation (test code = Normal 60806-8) [facility] [id number] 21:50:44 UNREMARKABLE LEUKOCYTES WITH ABSOLUTE LYMPHOPENIA. MODERATE NORMOCYTIC NORMOCHROMIC ANEMIA. MILD THROMBOCYTOPENIA.[facility] VITAMIN B12, [id number] 18:38:08 Test Item Value Reference Range Interpretation Comments VIT B12 (test code = >1000 240-930 H [id number]) BRANDI (test code = BRANDI) Biotin has been reported to cause a positive bias, interpret results relative to patient's use of biotin. Lab Interpretation (test Abnormal code = 29341-6) [facility] Center[facility]IT[facility]IN D, [id number] 17:51:01 Test Item Value Reference Range Interpretation Comments VIT D 25OH (test code = 24 ng/mL 25-80 L 50429-0) BRANDI (test code = BRANDI) Deficiency: <20 ng/mLInsufficiency: 20-24 ng/mLOptimal: 25-80 ng/mL Lab Interpretation (test Abnormal code = 81962-1) [facility] CenterFOLATE2022-02-17 17:42:20 Test Item Value Reference Range Interpretation Comments FOLATE SER (test code = 6.1 ng/mL 3.0-20.0 Biot in has been 9928454272) reported to cau se a positive bias, interpret resul ts relative to patient's use o f biotin. Lab Interpretation (test Normal code = 98919-7) [facility]AUTOMATED)2021-05-21 17:17:00 Test Item Value Reference Range Interpretation Comments POCT GLU (test code = 8707617383) 175 mg/dL 70-110 H Lab Interpretation (test code = Abnormal 43501-4) [facility] CenterTROPONIN [id number] 14:52:32 Test Item Value Reference Interpretation Comments Range TROPONIN I (test 0.109 ng/mL See_Comment H [Automated code = 1214387167) message] The system which generated this result [...] biotin. Lab Interpretation Abnormal (test code = 05132-8) [facility] CenterIRON [id number] 14:49:31 Test Item Value Reference Range Interpretation Comments IRON (test code = 9487263021) 30 ug/dL 50-160 L TIBC (test code = 1360289250) 185 ug/dL 250-410 L % FE SAT (test code = 9662541227) 16 % 20-50 L Lab Interpretation (test code = Abnormal 60415-7) [facility]2021-05-21 14:06:00 Test Item Value Reference Range Interpretation Comments POCT GLU (test code = 2819653605) 191 mg/dL 70-110 H Lab Interpretation (test code = Abnormal 42391-0) [facility] CenterFERRITIN [id number] 14:05:25 Test Item Value Reference Range Interpretation Comments FERRITIN (test code = 715.0 ng/mL 11.0-264.0 H 9323732891) BRANDI (test code = BRANDI) Biotin has been reported to cause a negative bias, interpret results relative to patient's use of biotin. Lab Interpretation (test Abnormal code = 27209-7) [facility] CenterN-TERMINAL [id number] 13:56:37 Test Item Value Reference Range Interpretation Comments NT-proBNP (test code 274161 pg/mL See_Comment H [Autom ated = 4047272781) message] The system which generated this result transmitted reference range : <=125. The reference range was not used to interpret this result as normal/abnormal . BRANDI (test code = BRANDI) Biotin has been reported to cause a negative bias, interpret results relative to patient's use of biotin. Lab Interpretation Abnormal (test code = 05227-2) [facility] CenterTROPONIN [id number] 13:43:04 Test Item Value Reference Interpretation Comments Range TROPONIN I (test 0.100 ng/mL See_Comment H [Automated code = 9366996710) message] The system which generated this result [...] biotin. Lab Interpretation Abnormal (test code = 21858-6) [facility] CenterHEPATIC FUNCTION PANEL (64116) (ALB,T.PRO,BILI T,BU/BC,ALT,AST,ALK PHOS)2021-05-21 13:30:03 Test Item Value Reference Range Interpretation Comments TOTAL BILI (test code = 8401894149) 0.7 mg/dL 0.1-1.1 BILI UNCON (test code = 1693442707) 0.0 mg/dL 0.1-1.1 L BILI CONJ (test code = 5800567003) 0.0 mg/dL 0.0-0.3 T PROTEIN (test code = 4069409961) 7.2 g/dL 6.3-8.2 ALBUMIN (test code = 4177405379) 3.5 g/dL 3.5-5.0 ALK PHOS (test code = 3496156851) 156 U/L 34-122 H ALTv (test code = 1742-6) 12 U/L 5-35 AST(SGOT) (test code = 6987005941) 28 U/L 13-40 Lab Interpretation (test code = Abnormal 38223-8) [facility] CenterCBC WITH [id number] 10:18:09 Test Item Value Reference Range Interpretation Comments WBC (test code = See_Comment [Automated 2790-2) message] The sy stem which generated this result transmitted reference range : 4.30 - 11.10 10*3/?L. The reference range was not used to interpret this result as normal/abnormal . RBC (test code = See_Comment L [Automated 449-8) message] The sy stem which generated this [...] (test code = 52.3 fL 39.0-49.9 H 17766-5) RDW-CV (test code = 14.9 % 12.0-15.5 788-0) PLT (test code = See_Comment L [Automated 777-3) message] The sy stem which generated this result transmitted reference range : 166 - 358 10*3/ ?L. The reference r alba was not used to interpret this result as normal/abnormal . MPV (test code = 11.0 fL 9.5-12.9 33658-5) NRBC/100 WBC (test See_Comment [Automat ed code = 0886599435) message] The system which generated this result transmitted reference range : 0.0 - 10.0 /100 WBCs. The refer ence range was not u sed to interpret th is result as normal/abnormal . NRBC x10^3 (test code <0.01 See_Comment [Auto mated = 9338547910) message] The s ystem which generated this result transmitted reference range : 10*3/?L. The reference range was not used to interpret this result as normal/abnormal . GRAN MAT (NEUT) % 74.4 % (test code = 770-8) IMM GRAN % (test code 0.30 % = 9467435887) LYMPH % (test code = 12.9 % 736-9) MONO % (test code = 11.2 % 5905-5) EOS % (test code = 0.7 % 713-8) BASO % (test code = 0.5 % 706-2) GRAN MAT x10^3(ANC) 4.40 10*3/uL 1.88-7.09 (test code = 5740257973) IMM GRAN x10^3 (test <0.03 0.00-0.06 code = 7082996018) LYMPH x10^3 (test code 0.76 10*3/uL 1.32-3.29 L = 731-0) MONO x10^3 (test code 0.66 10*3/uL 0.33-0.92 = 742-7) EOS x10^3 (test code = 0.04 10*3/uL 0.03-0.39 711-2) BASO x10^3 (test code 0.03 10*3/uL 0.01-0.07 = 704-7) Lab Interpretation Abnormal (test code = 17594-7) [facility] METABOLIC PANEL (NA, K, CL, CO2, GLUCOSE, BUN, CREATININE, CA)2021-05-21 10:17:29 Test Item Value Reference Range Interpretation Comments NA (test code = 132 mmol/L 135-145 L 1603446094) K (test code = 4.6 mmol/L 3.5-5.0 9029825332) CL (test code = 99 mmol/L 98-108 1192227772) CO2 TOTAL (test code = 27 mmol/L 23-31 6592832193) AGAP (test code = 2-16 7361235449) BUN (test code = 30 mg/dL 7-23 H 9735005134) GLUCOSE (test code = 129 mg/dL 70-110 H 6917959335) CREATININE (test code = 4.51 mg/dL 0.50-1.04 H 5315188936) CALCIUM (test code = 8.1 mg/dL 8.6-10.6 L 9585751845) eGFR (test code = mL/min/1.73m2 4764700964) BRANDI (test code = BRANDI) Association of [...] tests). Lab Interpretation Abnormal (test code = 56752-3) [facility] GLUCOSE (AUTOMATED)2021-05-21 02:24:31 Test Item Value Reference Range Interpretation Comments POCT GLU (test code = 0505330657) 123 mg/dL 70-110 H Lab Interpretation (test code = Abnormal 84066-8) [facility] GLUCOSE (AUTOMATED)2021-05-20 22:40:15 Test Item Value Reference Range Interpretation Comments POCT GLU (test code = 3760519104) 193 mg/dL 70-110 H Lab Interpretation (test code = Abnormal 23198-1) [facility] GLUCOSE (AUTOMATED)2021-05-20 17:24:39 Test Item Value Reference Range Interpretation Comments POCT GLU (test code = 0857769171) 129 mg/dL 70-110 H Lab Interpretation (test code = Abnormal 88015-7) [facility] CenterN-TERMINAL [id number] 16:20:09 Test Item Value Reference Range Interpretation Comments NT-proBNP (test code 149922 pg/mL See_Comment H [Autom ated = 3205267187) message] The system which generated this result transmitted reference range : <=125. The reference range was not used to interpret this result as normal/abnormal . BRANDI (test code = BRANDI) Biotin has been reported to cause a negative bias, interpret results relative to patient's use of biotin. Lab Interpretation Abnormal (test code = 89936-6) [facility] CenterPOWV GLUCOSE (AUTOMATED)2021-05-20 13:50:50 Test Item Value Reference Range Interpretation Comments POCT GLU (test code = 5156983383) 142 mg/dL 70-110 H Lab Interpretation (test code = Abnormal 27027-7) [facility] CenterLAWVATE [id number] 11:29:26 Test Item Value Reference Range Interpretation Comments LDH (test code = 0873280502) 424 U/L 300-600 Slight hemolysis Lab Interpretation (test code Normal = 34887-5) [facility] METABOLIC PANEL (NA, K, CL, CO2, GLUCOSE, BUN, CREATININE, CA)2021-05-20 11:28:05 Test Item Value Reference Range Interpretation Comments NA (test code = 132 mmol/L 135-145 L 6429947972) K (test code = 4.6 mmol/L 3.5-5.0 6167001231) CL (test code = 97 mmol/L 98-108 L 2711259045) CO2 TOTAL (test code = 26 mmol/L 23-31 1348325205) AGAP (test code = 2-16 4401541498) BUN (test code = 44 mg/dL 7-23 H 1980530869) GLUCOSE (test code = 161 mg/dL 70-110 H 9012857127) CREATININE (test code = 6.29 mg/dL 0.50-1.04 H 1054912277) CALCIUM (test code = 8.0 mg/dL 8.6-10.6 L 8154853914) eGFR (test code = mL/min/1.73m2 4473695442) BRANDI (test code = BRANDI) Association of [...] tests). Lab Interpretation Abnormal (test code = 89703-1) [facility] CenterPROTHROMBIN TIME / [id number] 11:17:25 Test Item Value Reference Range Interpretation Comments PROTIME PATIENT (test See_Comment [Auto mated message] code = 5964-2) The system [employer] generated this result transmitted ref erence range: 12.0 - 1 4.7 Seconds. The re ference range was not u sed to interpret this result as normal/abnor mal. INR (test code = 6301-6) Nor mal INR <1.1; Warfarin Therap eutic range 2.0 to 3. 0 or 2.5 to 3.5, dep ending upon the indica tions. Lab Interpretation (test Normal code = 01721-8) [facility] GLUCOSE (AUTOMATED)2021-05-20 01:38:05 Test Item Value Reference Range Interpretation Comments POCT GLU (test code = 7605024335) 181 mg/dL 70-110 H Lab Interpretation (test code = Abnormal 33965-4) [facility] GLUCOSE (AUTOMATED)2021-05-19 23:12:33 Test Item Value Reference Range Interpretation Comments POCT GLU (test code = 7192094756) 129 mg/dL 70-110 H Lab Interpretation (test code = Abnormal 58050-6) [facility] GLUCOSE (AUTOMATED)2021-05-19 17:43:05 Test Item Value Reference Range Interpretation Comments POCT GLU (test code = 1063622261) 195 mg/dL 70-110 H Lab Interpretation (test code = Abnormal 30858-2) [facility] CenterN-TERMINAL [id number] 16:56:37 Test Item Value Reference Range Interpretation Comments NT-proBNP (test code 749025 pg/mL See_Comment H [Autom ated = 7668462649) message] The system which generated this result transmitted reference range : <=125. The reference range was not used to interpret this result as normal/abnormal . BRANDI (test code = BRANDI) Biotin has been reported to cause a negative bias, interpret results relative to patient's use of biotin. Lab Interpretation Abnormal (test code = 63581-1) [facility]BAS[facility] (NA, K, CL, CO2, GLUCOSE, BUN, CREATININE, CA)2021-05-19 15:16:19 Test Item Value Reference Range Interpretation Comments NA (test code = 132 mmol/L 135-145 L 9237881631) K (test code = 4.7 mmol/L 3.5-5.0 7586492272) CL (test code = 98 mmol/L 98-108 2842041174) CO2 TOTAL (test code = 24 mmol/L 23-31 6840729088) AGAP (test code = 2-16 8001064281) BUN (test code = 30 mg/dL 7-23 H 8620949215) GLUCOSE (test code = 101 mg/dL 70-110 2924129139) CREATININE (test code = 4.70 mg/dL 0.50-1.04 H 8135657911) CALCIUM (test code = 8.3 mg/dL 8.6-10.6 L 5745784288) eGFR (test code = mL/min/1.73m2 4795524688) BRANDI (test code = BRANDI) Association of [...] tests). Lab Interpretation Abnormal (test code = 91267-8) [facility]PO[facility]ATED)2021-05-19 14:16:27 Test Item Value Reference Range Interpretation Comments POCT GLU (test code = 5012528333) 112 mg/dL 70-110 H Lab Interpretation (test code = Abnormal 89654-5) [facility] WITH [id number] 13:09:08 Test Item Value Reference Range Interpretation Comments WBC (test code = See_Comment [Automated 6690-2) message] The sy stem which generated this result transmitted reference range : 4.30 - 11.10 10*3/?L. The reference range was not used to interpret this result as normal/abnormal . RBC (test code = See_Comment L [Automated 419-8) message] The sy stem which generated this [...] (test code = 51.2 fL 39.0-49.9 H 34722-7) RDW-CV (test code = 14.6 % 12.0-15.5 788-0) PLT (test code = See_Comment L [Automated 777-3) message] The sy stem which generated this result transmitted reference range : 166 - 358 10*3/ ?L. The reference r alba was not used to interpret this result as normal/abnormal . MPV (test code = 11.0 fL 9.5-12.9 32971-5) NRBC/100 WBC (test See_Comment [Automat ed code = 4240934473) message] The system which generated this result transmitted reference range : 0.0 - 10.0 /100 WBCs. The refer ence range was not u sed to interpret th is result as normal/abnormal . NRBC x10^3 (test code <0.01 See_Comment [Auto mated = 9833293255) message] The s ystem which generated this result transmitted reference range : 10*3/?L. The reference range was not used to interpret this result as normal/abnormal . GRAN MAT (NEUT) % 82.8 % (test code = 770-8) IMM GRAN % (test code 0.40 % = 2894588423) LYMPH % (test code = 7.8 % 736-9) MONO % (test code = 7.9 % 5905-5) EOS % (test code = 0.7 % 713-8) BASO % (test code = 0.4 % 706-2) GRAN MAT x10^3(ANC) 5.98 10*3/uL 1.88-7.09 (test code = 8654053933) IMM GRAN x10^3 (test 0.03 10*3/uL 0.00-0.06 code = 0839859041) LYMPH x10^3 (test code 0.56 10*3/uL 1.32-3.29 L = 731-0) MONO x10^3 (test code 0.57 10*3/uL 0.33-0.92 = 742-7) EOS x10^3 (test code = 0.05 10*3/uL 0.03-0.39 711-2) BASO x10^3 (test code 0.03 10*3/uL 0.01-0.07 = 704-7) Lab Interpretation Abnormal (test code = 28652-8) [facility] B Surface Antibody (HBsAb)2021-05-19 09:35:37 Test Item Value Reference Range Interpretation Comments HBsAB (test code = Positive 3578432211) HBsAb mIU/mL Semi-Quantitative (test code = 1142329416) BRANDI (test code = Interpretation: BRANDI) ?Hepatitis B Surface Antibody ? Negative - Patient is considered to be not immune to infection with HBV. ? ? Positive - Anti-HBs detected at greater than or equal to 12 mIU/mL. ?Patient is considered to be immune to infection with HBV. ? [facility] B Surface Antigen (HBsAg)2021-05-19 09:17:53 Test Item Value Reference Range Interpretation Comments HBsAg Semi-Quantitative (test code = Negative Negative 5195-3) [facility] GLUCOSE (AUTOMATED)2021-05-19 03:13:02 Test Item Value Reference Range Interpretation Comments POCT GLU (test code = 4517042940) 110 mg/dL 70-110 Lab Interpretation (test code = Normal 82231-5) [facility] GLUCOSE (AUTOMATED)2021-05-18 23:00:40 Test Item Value Reference Range Interpretation Comments POCT GLU (test code = 4926788476) 177 mg/dL 70-110 H Lab Interpretation (test code = Abnormal 45337-8) [facility] GLUCOSE (AUTOMATED)2021-05-18 17:50:50 Test Item Value Reference Range Interpretation Comments POCT GLU (test code = 3744700562) 179 mg/dL 70-110 H Lab Interpretation (test code = Abnormal 07177-3) [facility] GLUCOSE (AUTOMATED)2021-05-18 17:26:29 Test Item Value Reference Range Interpretation Comments POCT GLU (test code = 7344759575) 171 mg/dL 70-110 H Lab Interpretation (test code = Abnormal 05578-6) [facility] METABOLIC PANEL (NA, K, CL, CO2, GLUCOSE, BUN, CREATININE, CA)2021-05-18 15:43:01 Test Item Value Reference Range Interpretation Comments NA (test code = 128 mmol/L 135-145 L 8473872359) K (test code = 5.5 mmol/L 3.5-5.0 H 8927947337) CL (test code = 94 mmol/L 98-108 L 8910994110) CO2 TOTAL (test code = 24 mmol/L 23-31 0033267841) AGAP (test code = 2-16 8991350866) BUN (test code = 56 mg/dL 7-23 H 8109527576) GLUCOSE (test code = 130 mg/dL 70-110 H 6434520565) CREATININE (test code = 7.52 mg/dL 0.50-1.04 H 6358387946) CALCIUM (test code = 7.8 mg/dL 8.6-10.6 L 7026371527) eGFR (test code = mL/min/1.73m2 0634464184) BRANDI (test code = BRANDI) Association of [...] tests). Lab Interpretation Abnormal (test code = 79877-8) [facility] GLUCOSE (AUTOMATED)2021-05-18 13:33:12 Test Item Value Reference Range Interpretation Comments POCT GLU (test code = 4995231877) 129 mg/dL 70-110 H Lab Interpretation (test code = Abnormal 86601-5) [facility] GLUCOSE (AUTOMATED)2021-05-17 22:57:15 Test Item Value Reference Range Interpretation Comments POCT GLU (test code = 0559240374) 215 mg/dL 70-110 H Lab Interpretation (test code = Abnormal 41718-5) [facility] CenterTransthoracic echo (TTE)2021-05-17 18:02:09 Test Item Value Reference Range Interpretation Comments LVOT diameter (test code 2.00 cm = 6588656326) MV Peak E [place] (test code 134.0 cm/s = 8935969050) MV Peak A [place] (test code 54.2 cm/s = 1560454696) E/A ratio (test code = ratio 2272160359) E wave decelartion time 0.22 s (test code = 8667328284) LA size (test code = 5.4 cm 3072849924) MV stenosis pressure 1/2 65.0 ms time (test code = 9694655367) MV dec slope (test code 604.00 cm/s2 = 2073740311) Ao root annulus (test 2.7 cm code = 7477757553) Ao root diam (test code 2.70 cm = 6332715525) Aortic root (test code = 2.7 cm 4404973566) LVIDD (test code = 5.10 cm 2850022009) IVS (test code = 1.06 cm 7628696403) Interventricular Septum 1.06 cm Diastolic Thickness by 2D (test code = 3562581) LVPWD (test code = 1.00 cm 5915847908) PW (test code = 1.00 cm 0.6-1.1 3000118467) LVIDS (test code = 3.70 cm 7221306104) FS (test code = 27 % 1763451007) EF(Teich) (test code = 52.60 % 6585850095) EF - 2D (test code = 52.60 % 41127542) MR max PG (test code = 123.90 mm[Hg] 8493978506) MR max [place] (test code = 556.50 cm/s 9551191558) Mr max [place] (test code = 556.5 m/s 0075566557) LAV(MOD-sp4) (test code 46.70 mL = 5948660737) LA Volume Index (BP) 29.2 mL/m2 (test code = 8053347703) LA volume (BP) (test 51.8 mL code = 6730084862) LAV(MOD-sp2) (test code 52.40 mL = 1498507053) Aortic valve mean 105.0 cm/s velocity (test code = 6387999091) Ao peak [place] (test code = 160.0 cm/s 0108361151) Ao VTI (test code = 30.0 cm 5167506809) Ao max PG (test code = 10.20 mm[Hg] 2917923809) AV peak gradient (test mmHg code = 8407803082) AV mean gradient (test mmHg code = 3283137947) LVOT stroke volume (test 63.60 cm3 code = 8485370435) LVOT peak [place] (test code 108.3 cm/s = 6623594326) LVOT mn grad (test code mmHg = 3289107068) AV LVOT peak gradient mmHg (test code = 3164326266) LVOT peak VTI (test code 20.2 cm = 2699548441) AV area by cont VTI 2.1 cm2 (test code = 4265142707) AV area peak [place] (test 2.1 cm2 code = 0802075671) LV V1 mean (test code = 66.80 cm/s 0250194075) AV valve area (test code 2.12 cm2 = 2557068739) TR Peak [place] (test code = 342.9 cm/s 8770456606) Triscuspid Valve mmHg Regurgitation Peak Gradient (test code = 3728797454) PV REGURGITATION PEAK mmHg GRADIENT (test code = 2904780482) PI dec slope (test code 438.00 cm/s2 = 7163644492) Pulmonic Regurgitant End 105.3 cm/s Max Velocity (test code = 9376379564) Inferior Vena Cava 2.33 cm Diameter (test code = 1068411676) MV Prop V (test code = 37.50 cm/s 0104021582) Radiology Study observation (narrative) (test code = 66036-0) ADD (test code = ADD) Addendum by Brenda Fuentes MD on 05/17/2021 3:16 PM OB NURSE ?Left?Ventricle: Low normal systolic function with a [...] (73.9 kg) 1.81 sq meters 165/73 71 [facility] GLUCOSE (AUTOMATED)2021-05-17 17:54:17 Test Item Value Reference Range Interpretation Comments POCT GLU (test code = 7885432571) 134 mg/dL 70-110 H Lab Interpretation (test code = Abnormal 67602-7) [facility] GLUCOSE (AUTOMATED)2021-05-17 14:18:37 Test Item Value Reference Range Interpretation Comments POCT GLU (test code = 2271607570) 119 mg/dL 70-110 H Lab Interpretation (test code = Abnormal 51028-3) [facility] [id number] 11:21:13 Test Item Value Reference Range Interpretation Comments NT-proBNP (test code 666083 pg/mL See_Comment H [Autom ated = 2687212082) message] The system which generated this result transmitted reference range : <=125. The reference range was not used to interpret this result as normal/abnormal . BRANDI (test code = BRANDI) Biotin has been reported to cause a negative bias, interpret results relative to patient's use of biotin. Lab Interpretation Abnormal (test code = 50791-7) [facility] WITHOUT [id number] 11:09:22 Test Item Value Reference Range Interpretation Comments WBC (test code = 6690-2) See_Comment [A utomated message] The system [employer] generated this result transmit levi reference range : 4.30 - 11.10 10*3/?L. The reference range was not used to interpret this result as normal/abnormal . RBC (test code = 789-8) See_Comment L [Au tomated message] The system [employer] generated this result transmit levi reference range [...] See_Comment L [Au tomated message] The system [facility] generated this result transmit levi reference range : 166 - 358 10*3/?L. The reference range was not used to interpret this result as normal/abnormal . MPV (test code = 11.1 fL 9.5-12.9 10285-8) RDW-CV (test code = 14.5 % 12.0-15.5 788-0) RDW-SD (test code = 50.8 fL 39.0-49.9 H 59854-9) NRBC x10^3 (test code = <0.01 See_Comment [Au tomated message] 5786587121) The system [facility] generated this result transmit levi reference range : 10*3/?L. The reference range was not used to interpret this result as normal/abnormal . NRBC/100 WBC (test code See_Comment [Au tomated message] = 0433098187) The system [facility] generated this result transmit levi reference range : 0.0 - 10.0 /100 WBC s. The reference r alba was not used to interpret this result as normal/abnormal . IPF % (test code = 8348978969) Lab Interpretation (test Abnormal code = 07565-0) [facility] Test Item Value Reference Range Interpretation Comments MAGNESIUM (test code = 2952560460) 2.1 mg/dL 1.7-2.4 Lab Interpretation (test code = Normal 44612-1) [facility] METABOLIC PANEL (NA, K, CL, CO2, GLUCOSE, BUN, CREATININE, CA)2021-05-17 10:56:22 Test Item Value Reference Range Interpretation Comments NA (test code = 130 mmol/L 135-145 L 2772378807) K (test code = 4.6 mmol/L 3.5-5.0 1168569474) CL (test code = 96 mmol/L 98-108 L 8496241569) CO2 TOTAL (test code = 26 mmol/L 23-31 6147200670) AGAP (test code = 2-16 4642334947) BUN (test code = 42 mg/dL 7-23 H 0678318486) GLUCOSE (test code = 148 mg/dL 70-110 H 8549976668) CREATININE (test code = 5.84 mg/dL 0.50-1.04 H 8705588804) CALCIUM (test code = 7.9 mg/dL 8.6-10.6 L 3879129037) eGFR (test code = mL/min/1.73m2 2047219501) BRANDI (test code = BRANDI) Association of [...] tests). Lab Interpretation Abnormal (test code = 38595-4) [facility] CenterPHOSPHORUS2022-02-13 10:56:02 Test Item Value Reference Range Interpretation Comments PHOSPHORUS (test code = 8350847597) 5.8 mg/dL 2.5-5.0 H Lab Interpretation (test code = Abnormal 70405-9) [facility] GLUCOSE (AUTOMATED)2021-05-16 22:43:07 Test Item Value Reference Range Interpretation Comments POCT GLU (test code = 2387179005) 231 mg/dL 70-110 H Lab Interpretation (test code = Abnormal 75473-8) [facility] GLUCOSE (AUTOMATED)2021-05-16 17:43:53 Test Item Value Reference Range Interpretation Comments POCT GLU (test code = 6179739949) 154 mg/dL 70-110 H Lab Interpretation (test code = Abnormal 37462-5) [facility] GLUCOSE (AUTOMATED)2021-05-16 13:42:36 Test Item Value Reference Range Interpretation Comments POCT GLU (test code = 8202559292) 121 mg/dL 70-110 H Lab Interpretation (test code = Abnormal 89551-3) [facility] WITHOUT [id number] 09:48:31 Test Item Value Reference Range Interpretation Comments WBC (test code = 6690-2) See_Comment [A utomated message] The system [employer] generated this result transmit levi reference range : 4.30 - 11.10 10*3/?L. The reference range was not used to interpret this result as normal/abnormal . RBC (test code = 789-8) See_Comment L [Au tomated message] The system [employer] generated this result transmit levi reference range [...] See_Comment L [Au tomated message] The system [facility] generated this result transmit levi reference range : 166 - 358 10*3/?L. The reference range was not used to interpret this result as normal/abnormal . MPV (test code = 10.9 fL 9.5-12.9 77491-0) RDW-CV (test code = 15.0 % 12.0-15.5 788-0) RDW-SD (test code = 52.6 fL 39.0-49.9 H 52594-5) NRBC x10^3 (test code = <0.01 See_Comment [Au tomated message] 0723391334) The system [facility] [employer] generated this result transmit levi reference range : 10*3/?L. The reference range was not used to interpret this result as normal/abnormal . NRBC/100 WBC (test code See_Comment [Au tomated message] = 6027216813) The system [facility] generated this result transmit levi reference range : 0.0 - 10.0 /100 WBC s. The reference r alba was not used to interpret this result as normal/abnormal . IPF % (test code = 0639152279) Lab Interpretation (test Abnormal code = 60993-4) [facility] (Total Cholesterol, Triglycerides, HDL)2021-05-16 09:36:18 Test Item Value Reference Range Interpretation Comments CHOL (test code = 157 mg/dL 120-200 7453438250) HDL (test code = 26 mg/dL >50 L 7915955541) HDLC RATIO (test code = See_Comment H [Au tomated message] 3035675833) The system [facility] [employer] generated this result transmit levi reference range : <=4.5. The refe rence range was not u sed to interpret th is result as normal/abnormal . TRIG (test code = 146 mg/dL 30-170 5576792164) LDL CHOL (test code = 102 mg/dL See_Comment [Auto mated message] 88835-7) The system [employer] generated this result transmit levi reference range : <=160. The refe rence range was not u sed to interpret th is result as normal/abnormal . VLDL (test code = 29 mg/dL 5-60 4012520528) Lab Interpretation (test Abnormal code = 53052-5) [facility] CenterGlycosylated Hemoglobin (A1C)2021-05-16 09:22:50 Test Item Value Reference Range Interpretation Comments HGB A1C (test code = 6.2 % 4.0-5.7 H 4548-4) BRANDI (test code = BRANDI) Reference RangesNormal: <5.7%Prediabetes: 5.7 - 6.4%Diabetes: > 6.5% Lab Interpretation (test Abnormal code = 82982-2) [facility] CenterTroponin [id number] 09:19:18 Test Item Value Reference Interpretation Comments Range TROPONIN I (test 0.028 ng/mL See_Comment [Automated code = 7367164984) message] The system which generated this result [...] biotin. Lab Interpretation Normal (test code = 05283-5) [facility] (NA, K, CL, CO2, GLUCOSE, BUN, CREATININE, CA)2021-05-16 09:08:35 Test Item Value Reference Range Interpretation Comments NA (test code = 134 mmol/L 135-145 L 0755447674) K (test code = 4.3 mmol/L 3.5-5.0 7768904413) CL (test code = 98 mmol/L 98-108 9637582594) CO2 TOTAL (test code = 27 mmol/L 23-31 4974274353) AGAP (test code = 2-16 5438834646) BUN (test code = 28 mg/dL 7-23 H 2920683923) GLUCOSE (test code = 114 mg/dL 70-110 H 2054105170) CREATININE (test code = 4.79 mg/dL 0.50-1.04 H 4517254374) CALCIUM (test code = 8.2 mg/dL 8.6-10.6 L 3604484970) eGFR (test code = mL/min/1.73m2 5496962888) BRANDI (test code = BRANDI) Association of [...] tests). Lab Interpretation Abnormal (test code = 29443-4) [facility] CenterMagnesium Ithff0588-23-96 09:08:35 Test Item Value Reference Range Interpretation Comments MAGNESIUM (test code = 3813559284) 2.2 mg/dL 1.7-2.4 Lab Interpretation (test code = Normal 99602-5) [facility] CenterTroponin [id number] 03:08:26 Test Item Value Reference Interpretation Comments Range TROPONIN I (test 0.019 ng/mL See_Comment [Automated code = 3531814077) message] The system which generated this result [...] biotin. Lab Interpretation Normal (test code = 40717-1) [facility] CenterPhosphorus Qtdrm1236-47-94 02:56:02 Test Item Value Reference Range Interpretation Comments PHOSPHORUS (test code = 1993340602) 4.5 mg/dL 2.5-5.0 Lab Interpretation (test code = Normal 50357-9) [facility] CenterPOCT GLUCOSE (AUTOMATED)2021-05-16 02:28:15 Test Item Value Reference Range Interpretation Comments POCT GLU (test code = 8002493537) 155 mg/dL 70-110 H Lab Interpretation (test code = Abnormal 98615-0) [facility] CenterThyroid Stimulating Hormone (TSH)2021-05-16 01:56:53 Test Item Value Reference Range Interpretation Comments TSH (test code = See_Comment [Automated message] 4607225860) The system [employer] generated this result transmitted ref erence range: 0.45 - 4 .70 mIU/L. The refe rence range was not u sed to interpret this result as normal/abnor mal. Lab Interpretation (test Normal code = 86574-6) [facility] CenterGlycosylated Hemoglobin (A1C)2021-05-16 01:17:48 Test Item Value Reference Range Interpretation Comments HGB A1C (test code = 6.3 % 4.0-5.7 H 4548-4) BRANDI (test code = BRANDI) Reference RangesNormal: <5.7%Prediabetes: 5.7 - 6.4%Diabetes: > 6.5% Lab Interpretation (test Abnormal code = 75918-4) [facility] CenterN-TERMINAL [id number]-[id number] 20:42:55 Test Item Value Reference Range Interpretation Comments NT-proBNP (test code 682269 pg/mL See_Comment H [Autom ated = 8108172629) message] The system which generated this result transmitted reference range : <=125. The reference range was not used to interpret this result as normal/abnormal . BRANDI (test code = BRANDI) Biotin has been reported to cause a negative bias, interpret results relative to patient's use of biotin. Lab Interpretation Abnormal (test code = 92347-1) [facility] CenterTROPONIN [id number] 20:28:40 Test Item Value Reference Interpretation Comments Range TROPONIN I (test 0.012 ng/mL See_Comment [Automated code = 1466357706) message] The system which generated this result [...] biotin. Lab Interpretation Normal (test code = 93147-8) [facility] CenterD-TVBYP3758-58-00 20:27:34 Test Item Value Reference Interpretation Comments Range D-DIMER (test code = See_Comment H [Autom ated 3274807510) message] The system which generated this result [...] diagnosis. Lab Interpretation Abnormal (test code = 27025-4) [facility] CenterMAGNESIUM2022-02-11 20:17:56 Test Item Value Reference Range Interpretation Comments MAGNESIUM (test code = 4166654691) 1.9 mg/dL 1.7-2.4 Lab Interpretation (test code = Normal 98064-5) [facility] CenterCOMP. METABOLIC PANEL (39923)2021-05-15 20:17:36 Test Item Value Reference Range Interpretation Comments NA (test code = 136 mmol/L 135-145 2837361147) K (test code = 4.2 mmol/L 3.5-5.0 4383463256) CL (test code = 99 mmol/L 98-108 9724312334) CO2 TOTAL (test code = 26 mmol/L 23-31 8320051819) AGAP (test code = 2-16 7328771171) BUN (test code = 24 mg/dL 7-23 H 8357885526) GLUCOSE (test code = 112 mg/dL 70-110 H 4210740842) CREATININE (test code = 3.82 mg/dL 0.50-1.04 H 1515930376) TOTAL BILI (test code = 1.0 mg/dL 0.1-1.1 2450100843) CALCIUM (test code = 8.5 mg/dL 8.6-10.6 L 3562472017) T PROTEIN (test code = 8.6 g/dL 6.3-8.2 H 0421568903) ALBUMIN (test code = 4.2 g/dL 3.5-5.0 5475006733) ALK PHOS (test code = 176 U/L 34-122 H 5823037821) ALTv (test code = 13 U/L 5-35 1742-6) AST(SGOT) (test code = 26 U/L 13-40 9221390782) eGFR (test code = mL/min/1.73m2 6162061223) BRANDI (test code = BRANDI) Association of [...] tests). Lab Interpretation Abnormal (test code = 28438-7) [facility] CenterLIPASE2022-02-11 20:17:15 Test Item Value Reference Range Interpretation Comments LIPASE (test code = 4230216829) 125 U/L 0-220 Lab Interpretation (test code = Normal 35506-7) [facility] CenterPROTHROMBIN TIME / [id number] 20:02:29 Test Item Value Reference Range Interpretation [...] tions. Lab Interpretation (test Normal code = 98646-6) [facility] CenterCB WITH [id number] 19:52:47 Test Item Value Reference Range Interpretation [...] (test code = 52.6 fL 39.0-49.9 H 92085-1) RDW-CV (test code = 15.0 % 12.0-15.5 788-0) PLT (test code = See_Comment L [Automated 777-3) message] The sy stem which generated this result transmitted reference range : 166 - 358 10*3/ ?L. The reference r alba was not used to interpret this result as normal/abnormal . MPV (test code = 10.9 fL 9.5-12.9 58510-8) NRBC/100 WBC (test See_Comment [Automat ed code = 5187137210) message] The system which generated this result transmitted reference range : 0.0 - 10.0 /100 WBCs. The refer ence range was not u sed to interpret th is result as normal/abnormal . NRBC x10^3 (test code <0.01 See_Comment [Auto mated = 3013471892) message] The s ystem which generated this result transmitted reference range : 10*3/?L. The reference range was not used to interpret this result as normal/abnormal . GRAN MAT (NEUT) % 74.8 % (test code = 770-8) IMM GRAN % (test code 0.60 % = 3962042242) LYMPH % (test code = 12.4 % 736-9) MONO % (test code = 8.7 % 5905-5) EOS % (test code = 2.6 % 713-8) BASO % (test code = 0.9 % 706-2) GRAN MAT x10^3(ANC) 4.06 10*3/uL 1.88-7.09 (test code = 5695482458) IMM GRAN x10^3 (test 0.03 10*3/uL 0.00-0.06 code = 7268397597) LYMPH x10^3 (test code 0.67 10*3/uL 1.32-3.29 L = 731-0) MONO x10^3 (test code 0.47 10*3/uL 0.33-0.92 = 742-7) EOS x10^3 (test code = 0.14 10*3/uL 0.03-0.39 711-2) BASO x10^3 (test code 0.05 10*3/uL 0.01-0.07 = 704-7) Lab Interpretation Abnormal (test code = 74236-1) [facility] I.cardiac [Mass/volume] in Serum or Koaruh5046-38-03 17:30:00 Test Item Value Reference Range Interpretation Comments Troponin I.cardiac 0.35 See_Comment [Automat ed message] The [Mass/volume] in Serum syste m which generated or Plasma (test code = this result transmitted Troponin I.cardiac reference range: <=0.045. [Mass/volume] in Serum The r eference range was or Plasma) not used to int erpret this result as normal/abnormal . [facility] HermannAbsolute lymphocyte ygzcw2515-66-41 11:37:00 Test Item Value Reference Range Interpretation Comments Absolute lymphocyte count (test code = 0.7 0.7-4.9 Absolute lymphocyte count) [facility] MalloryannBasophil %2019-02-18 11:37:00 Test Item Value Reference Range Interpretation Comments Basophil % (test code = 2.4 See_Comment [Au tomated message] The Basophil %) system which ge nerated this result tra nsmitted reference range : <=1.3. The reference r alba was not used to int erpret this result as normal/abnormal . [facility] MalloryannBlood anisocytosis prxctuxbr4001-80-24 11:37:00 Test Item Value Reference Range Interpretation Comments Blood anisocytosis detection (test code 2+ = Blood anisocytosis detection) [facility] MalloryannBlood erythrocytes count (number/volume)2019-02-18 11:37:00 Test Item Value Reference Range Interpretation Comments Blood erythrocytes count 3.34 3.86-4.86 (number/volume) (test code = Blood erythrocytes count (number/volume)) [facility] MalloryannBlood hematocrit (volume fraction)2019-02-18 11:37:00 Test Item Value Reference Range Interpretation Comments Blood hematocrit (volume fraction) 31.8 36.0-45.0 (test code = Blood hematocrit (volume fraction)) [facility] interpretation cliuenrxq1071-31-52 11:37:00 Test Item Value Reference Range Interpretation Comments Blood morphology interpretation Noted narrative (test code = Blood morphology interpretation narrative) [facility]Blood platelet mean lrvrcp5558-43-77 11:37:00 Test Item Value Reference Range Interpretation Comments Blood platelet mean volume (test code = 9.8 7.6-11.3 Blood platelet mean volume) [facility]annBlood poikilocytosis detection by light hrpgrwbeji7891-26-00 11:37:00 Test Item Value Reference Range Interpretation Comments Blood poikilocytosis detection by light 1+ microscopy (test code = Blood poikilocytosis detection by light microscopy) [facility]annCalcium [Mass/volume] in Serum or Vwpqdz7839-20-89 11:37:00 Test Item Value Reference Range Interpretation [...] [Moles/volume] in Serum or Plasma) [facility]annChemistry exmxvrdwe8538-14-02 11:37:00 Test Item Value Reference Range Interpretation Comments Chemistry procedure (test code = 95.3 80-100 Chemistry procedure) [facility]annChloride [Moles/volume] in Serum or Vvkebw4477-31-26 11:37:00 Test Item Value Reference Range Interpretation Comments Chloride [Moles/volume] in Serum or 98 98-107 Plasma (test code = Chloride [Moles/volume] in Serum or Plasma) [facility]annCreatinine [Mass/volume] in Serum or Iukvzx4449-65-43 11:37:00 Test Item Value Reference Range Interpretation Comments Creatinine [Mass/volume] in Serum or 7.35 0.55-1.3 Plasma (test code = Creatinine [Mass/volume] in Serum or Plasma) [facility]annGlucose [Mass/volume] in Serum or Mbxavr5824-58-10 11:37:00 Test Item Value Reference Range Interpretation Comments Glucose [Mass/volume] in Serum or 110 74-106 Plasma (test code = Glucose [Mass/volume] in Serum or Plasma) [facility]annMagnesium [Mass/volume] in Serum or Gkwish7030-81-87 11:37:00 Test Item Value Reference Range Interpretation Comments Magnesium [Mass/volume] in Serum or 2.4 1.8-2.4 Plasma (test code = Magnesium [Mass/volume] in Serum or Plasma) [facility]annPhosphate [Mass/volume] in Serum or Pmagoh0003-66-02 11:37:00 Test Item Value Reference Range Interpretation Comments Phosphate [Mass/volume] in Serum or 4.7 2.5-4.9 Plasma (test code = Phosphate [Mass/volume] in Serum or Plasma) [facility]annPotassium [Moles/volume] in Serum or Gawqvt8726-40-02 11:37:00 Test Item Value Reference Range Interpretation [...] [facility]annUrea nitrogen [Mass/volume] in Serum or Palndj3335-06-97 11:37:00 Test Item Value Reference Range Interpretation Comments Urea nitrogen [Mass/volume] in Serum or 74 7-18 Plasma (test code = Urea nitrogen [Mass/volume] in Serum or Plasma) [facility]annUrine dipstick testing at vsjxe-aj-nrxg8539-11-17 11:37:00 Test Item Value Reference Range Interpretation Comments Urine dipstick testing at xvrmg-lp-mfac 2.6 4.3-10.9 (test code = Urine dipstick testing at vhhlk-vw-cmqt) [facility]annAlanine aminotransferase [Enzymatic activity/volume] in Serum or Plasma by With P-5'-2019-02-18 00:35:00 Test Item Value Reference Range Interpretation Comments Alanine aminotransferase [Enzymatic 64 12-78 activity/volume] in Serum or Plasma by With P-5'- (test code = Alanine aminotransferase [Enzymatic activity/volume] in Serum or Plasma by With P-5'-) [facility]annAlbumin [Mass/volume] in Serum or Plasma by Bromocresol purple (BCP) dye binding [id number] 00:35:00 Test Item Value Reference Range Interpretation Comments Albumin [Mass/volume] in Serum or 3.6 3.4-5.0 Plasma by Bromocresol purple (BCP) dye binding meth (test code = Albumin [Mass/volume] in Serum or Plasma by Bromocresol purple (BCP) dye binding meth) [facility]annAlkaline phosphatase [Enzymatic activity/volume] in Serum or Duvghh4252-79-47 00:35:00 Test Item Value Reference Range Interpretation Comments Alkaline phosphatase [Enzymatic 236 45-117 activity/volume] in Serum or Plasma (test code = Alkaline phosphatase [Enzymatic activity/volume] in Serum or Plasma) [facility]annAspartate aminotransferase [Enzymatic activity/volume] in Serum or Plasma by With A-99963-4331266-30-75 00:35:00 Test Item Value Reference Range Interpretation Comments Aspartate aminotransferase [Enzymatic 48 15-37 activity/volume] in Serum or Plasma by With P-5 (test code = Aspartate aminotransferase [Enzymatic activity/volume] in Serum or Plasma by With P-5) [facility]annBilirubin.direct [Mass/volume] in Serum or Fretav7710-87-99 00:35:00 Test Item Value Reference Range Interpretation Comments Bilirubin.direct 0.2 See_Comment [Automated message] The [Mass/volume] in Serum syste m which generated or Plasma (test code = this result transmitted Bilirubin.direct reference r alba: <=0.2. [Mass/volume] in Serum The r eference range was or Plasma) not used to int erpret this result as emilee l/abnormal. [facility]annBilirubin.total [Mass/volume] in Serum or Bvfudg0671-58-07 00:35:00 Test Item Value Reference Range Interpretation Comments Bilirubin.total [Mass/volume] in Serum 0.6 0.2-1.0 or Plasma (test code = Bilirubin.total [Mass/volume] in Serum or Plasma) [facility]annINR in Blood by Coagulation muzjv3788-20-91 00:35:00 Test Item Value Reference Range Interpretation Comments INR in Blood by Coagulation assay 1.15 1 (test code = INR in Blood by Coagulation assay) [facility]annNatriuretic peptide.B prohormone N-Terminal [Mass/volume] in Serum or Chntwd4452-30-72 00:35:00 Test Item Value Reference Range Interpretation Comments Natriuretic peptide.B prohormone > 009358 N-Terminal [Mass/volume] in Serum or Plasma (test code = Natriuretic peptide.B prohormone N-Terminal [Mass/volume] in Serum or Plasma) [facility]annProtein [Mass/volume] in Serum or Lcdrhq8799-91-17 00:35:00 Test Item Value Reference Range Interpretation Comments Protein [Mass/volume] in Serum or 8.0 6.4-8.2 Plasma (test code = Protein [Mass/volume] in Serum or Plasma) [facility] MalloryannTroponin I.cardiac [Mass/volume] in Serum or Weedlq6325-39-11 00:35:00 Test Item Value Reference Range Interpretation Comments Troponin I.cardiac 0.32 See_Comment [Automat ed message] The [Mass/volume] in Serum syste m which generated or Plasma (test code = this result transmitted Troponin I.cardiac reference range: <=0.045. [Mass/volume] in Serum The r eference range was or Plasma) not used to int erpret this result as normal/abnormal . [facility] HermannUrine dipstick testing at muqpq-eq-qmkm6939-10-25 04:05:00 Test Item Value Reference Range Interpretation Comments Urine dipstick testing at comps-wo-xqha 3.4 4.3-10.9 (test code = Urine dipstick testing at uhhxc-ll-zrmy) [facility] HermannAbsolute lymphocyte wjgyo3264-18-52 04:05:00 Test Item Value Reference Range Interpretation Comments Absolute lymphocyte count (test code = 0.6 0.7-4.9 Absolute lymphocyte count) [facility] HermannBasophil %2019-01-26 04:05:00 Test Item Value Reference Range Interpretation Comments Basophil % (test code = 1.5 See_Comment [Au tomated message] The Basophil %) system which ge nerated this result tra nsmitted reference range : <=1.3. The reference r alba was not used to int erpret this result as normal/abnormal . [facility]Blood [facility] count (number/volume)2019-01-26 04:05:00 Test Item Value Reference Range Interpretation Comments Blood erythrocytes count 3.64 3.86-4.86 (number/volume) (test code = Blood erythrocytes count (number/volume)) [facility] HermannBlood hematocrit (volume fraction)2019-01-26 04:05:00 Test Item Value Reference Range Interpretation Comments Blood hematocrit (volume fraction) 35.7 36.0-45.0 (test code = Blood hematocrit (volume fraction)) [facility] HospitalannBlood morphology interpretation yhfqvxqmc0987-02-85 04:05:00 Test Item Value Reference Range Interpretation Comments Blood morphology interpretation Not seen narrative (test code = Blood morphology interpretation narrative) [facility]annBlood platelet mean hrvouo3449-88-36 04:05:00 Test Item Value Reference Range Interpretation Comments Blood platelet mean volume (test code = 9.2 7.6-11.3 Blood platelet mean volume) [facility]annCalcium [Mass/volume] in Serum or Hnxrlx7574-29-55 04:05:00 Test Item Value Reference Range Interpretation [...] [Moles/volume] in Serum or Plasma) [facility]annChemistry wnvgimxhq0370-76-53 04:05:00 Test Item Value Reference Range Interpretation Comments Chemistry procedure (test code = 98.1 80-100 Chemistry procedure) [facility]annChloride [Moles/volume] in Serum or Jkxsqx5151-46-64 04:05:00 Test Item Value Reference Range Interpretation Comments Chloride [Moles/volume] in Serum or 98 98-107 Plasma (test code = Chloride [Moles/volume] in Serum or Plasma) [facility]annCreatinine [Mass/volume] in Serum or Vuaxqx0214-64-87 04:05:00 Test Item Value Reference Range Interpretation Comments Creatinine [Mass/volume] in Serum or 6.36 0.55-1.3 Plasma (test code = Creatinine [Mass/volume] in Serum or Plasma) [facility]annGlucose [Mass/volume] in Serum or Jjxglg9125-62-92 04:05:00 Test Item Value Reference Range Interpretation Comments Glucose [Mass/volume] in Serum or 251 74-106 Plasma (test code = Glucose [Mass/volume] in Serum or Plasma) [facility]annPotassium [Moles/volume] in Serum or Nxwwee2543-89-77 04:05:00 Test Item Value Reference Range Interpretation Comments Potassium [Moles/volume] in Serum or 4.7 3.5-5.1 Plasma (test code = Potassium [Moles/volume] in Serum or Plasma) [facility] or plasma sodium measurement (moles/volume)2019-01-26 04:05:00 Test Item Value Reference Range Interpretation Comments Serum or plasma sodium measurement 136 136-145 (moles/volume) (test code = Serum or plasma sodium measurement (moles/volume)) [facility] CenterU[facility] [Mass/volume] in Serum or Nqfeky2874-77-58 04:05:00 Test Item Value Reference Range Interpretation Comments Urea nitrogen [Mass/volume] in Serum or 52 7-18 Plasma (test code = Urea nitrogen [Mass/volume] in Serum or Plasma) [facility] CenterBacterial culture w [id number] 01:55:00 Test Item Value Reference Range Interpretation Comments Bacterial culture w ID NORMAL UPPER (test code = Bacterial RESPIRATORY HARI culture w ID) GROWN. [facility] Smuujjx0793-99-28 16:07:00 Test Item Value Reference Range Interpretation Comments Bedside Glucose (test code = Bedside 175 65-[address]) [facility] CenterLabo[facility] Yvxtxpc8476-08-83 05:35:00 Test Item Value Reference Range Interpretation Comments Blood Morphology Blood Morphology Comment (test code = Comment Blood Morphology Comment) [facility] CenterLabo[facility] Ptdgaxd3036-66-52 05:35:00 Test Item Value Reference Range Interpretation Comments Total Bilirubin (test code = Total 0.5 0.2-1.0 Bilirubin) [facility] Qbocbpk1380-76-48 05:35:00 Test Item Value Reference Range Interpretation Comments Sodium Level (test code = Sodium Level) 137 136-145 [facility] CenterLaborabaton [facility] Nxjkekl2444-95-83 05:35:00 Test Item Value Reference Range Interpretation Comments Serum Total Protein (test code = Serum 7.5 6.4-8.2 Total Protein) [facility] Rqgmunv7945-15-42 05:35:00 Test Item Value Reference Range Interpretation Comments Potassium Level (test code = Potassium 4.8 3.5-5.1 Level) [facility] Amvxrew1589-81-07 05:35:00 Test Item Value Reference Range Interpretation Comments Glucose Level (test code = Glucose 90 74-106 Level) [facility] CenterLabo[facility] Eclorda3472-78-61 05:35:00 Test Item Value Reference Range Interpretation Comments Globulin (test code = Globulin) 4.3 2.3-3.5 [facility] Yvgyuvd2590-37-73 05:35:00 Test Item Value Reference Range Interpretation Comments Estimat Glomerular 7 See_Comment [Automat ed message] The Filtration Rate (test system which generated code = Estimat this result t ransmitted Glomerular Filtration refere nce range: >=90. Rate) The reference r alba was not used to int erpret this result as normal/abnormal . [place] [facility]00 Test Item Value Reference Range Interpretation Comments Creatinine (test code = Creatinine) 6.02 0.55-1.3 [facility]2019-07-10 05:35:00 Test Item Value Reference Range Interpretation Comments Chloride Level (test code = Chloride 102 98-107 Level) [facility]2019-07-10 05:35:00 Test Item Value Reference Range Interpretation Comments Carbon Dioxide Level (test code = 25 21-32 Carbon Dioxide Level) [facility]2019-07-10 05:35:00 Test Item Value Reference Range Interpretation Comments Calcium Level (test code = Calcium 8.1 8.5-10.1 Level) [facility]2019-07-10 05:35:00 Test Item Value Reference Range Interpretation Comments Blood Urea Nitrogen (test code = Blood 43 7-18 Urea Nitrogen) [facility]2019-07-10 05:35:00 Test Item Value Reference Range Interpretation Comments Aspartate Amino Transf (AST/SGOT) (test 36 15-37 code = Aspartate Amino Transf (AST/SGOT)) [facility]2019-07-10 05:35:00 Test Item Value Reference Range Interpretation Comments Alkaline Phosphatase (test code = 252 45-117 Alkaline Phosphatase) [facility]2019-07-10 05:35:00 Test Item Value Reference Range Interpretation Comments Albumin/Globulin Ratio (test code = 0.7 1 1.1-1.8 Albumin/Globulin Ratio) [facility]2019-07-10 05:35:00 Test Item Value Reference Range Interpretation Comments Albumin (test code = Albumin) 3.2 3.4-5.0 [facility]2019-07-10 05:35:00 Test Item Value Reference Range Interpretation Comments Alanine Aminotransferase (ALT/SGPT) 57 12-78 (test code = Alanine Aminotransferase (ALT/SGPT)) [facility]2019-07-10 05:35:00 Test Item Value Reference Range Interpretation Comments White Blood Count (test code = White 2.9 4.3-10.9 Blood Count) [facility]2019-07-10 05:35:00 Test Item Value Reference Range Interpretation Comments Red Cell Distribution Width (test code 17.2 12.1-15.2 = Red Cell Distribution Width) [facility]2019-07-10 05:35:00 Test Item Value Reference Range Interpretation Comments Red Blood Count (test code = Red Blood 3.49 3.86-4.86 Count) [facility]2019-07-10 05:35:00 Test Item Value Reference Range Interpretation Comments Platelet Count (test code = Platelet 116 152-406 Count) [facility]2019-07-10 05:35:00 Test Item Value Reference Range Interpretation Comments Neutrophils % (test code = Neutrophils 49.4 41.7-73.7 %) [facility]2019-07-10 05:35:00 Test Item Value Reference Range Interpretation Comments Monocytes % (test code = Monocytes %) 10.4 3.3-12.3 [facility]2019-07-10 05:35:00 Test Item Value Reference Range Interpretation Comments Mean Platelet Volume (test code = Mean 8.7 7.6-11.3 Platelet Volume) [facility]2019-07-10 05:35:00 Test Item Value Reference Range Interpretation Comments Mean Corpuscular Volume (test code = 98.2 80-100 Mean Corpuscular Volume) [facility]2019-07-10 05:35:00 Test Item Value Reference Range Interpretation Comments Mean Corpuscular Hemoglobin Concent 33.0 32.0-36.0 (test code = Mean Corpuscular Hemoglobin Concent) [facility]2019-07-10 05:35:00 Test Item Value Reference Range Interpretation Comments Mean Corpuscular Hemoglobin (test 32.4 pg 27.0-35.0 code = Mean Corpuscular Hemoglobin) [facility]2019-07-10 05:35:00 Test Item Value Reference Range Interpretation Comments Lymphocytes % (test code = Lymphocytes 30.3 15.3-44.8 %) [facility]2019-07-10 05:35:00 Test Item Value Reference Range Interpretation Comments Hemoglobin (test code = Hemoglobin) 11.3 12.0-15.0 [facility]2019-07-10 05:35:00 Test Item Value Reference Range Interpretation Comments Hematocrit (test code = Hematocrit) 34.3 36.0-45.0 [facility]2019-07-10 05:35:00 Test Item Value Reference Range Interpretation Comments Eosinophils % (test code 8.8 See_Comment [A utomated message] The = Eosinophils %) system [facility] h generated this result tra nsmitted reference range : <=4.4. The reference r alba was not used to int erpret this result as normal/abnormal . [facility]2019-07-10 05:35:00 Test Item Value Reference Range Interpretation Comments Basophils % (test code 1.1 See_Comment [Aut omated message] The = Basophils %) system which generated this result tra nsmitted reference range : <=1.3. The reference r alba was not used to int erpret this result as normal/abnormal . [facility]2019-07-10 05:35:00 Test Item Value Reference Range Interpretation Comments Absolute Neutrophil (test code = 1.4 1.8-8.0 Absolute Neutrophil) [facility]2019-07-10 05:35:00 Test Item Value Reference Range Interpretation Comments Absolute Monocytes (CBC) (test code = 0.3 0.1-1.3 Absolute Monocytes (CBC)) [facility]2019-07-10 05:35:00 Test Item Value Reference Range Interpretation Comments Absolute Lymphocytes (CBC) (test code = 0.9 0.7-4.9 Absolute Lymphocytes (CBC)) [facility]2019-07-10 05:35:00 Test Item Value Reference Range Interpretation Comments Absolute Eosinophils 0.3 See_Comment [Autom ated message] The (CBC) (test code = system wh ich generated Absolute Eosinophils this re sult transmitted (CBC)) reference range : <=0.5. The reference r alba was not used to int erpret this result as normal/abnormal . [facility]2019-07-10 05:35:00 Test Item Value Reference Range Interpretation Comments Absolute Basophils 0.0 See_Comment [Automat ed message] The (CBC) (test code = system ich generated Absolute Basophils this resu lt transmitted (CBC)) reference range : <=0.5. The reference r alba was not used to int erpret this result as normal/abnormal . [facility] [id number] 05:43:00 Test Item Value Reference Range Interpretation Comments Prothrombin Time (test code = 12.9 9.5-12.5 Prothrombin Time) [facility]2019-07-09 05:43:00 Test Item Value Reference Range Interpretation Comments INR International Normalized Ratio 1.10 1 (test code = INR International Normalized Ratio) [facility]2019-07-09 05:43:00 Test Item Value Reference Range Interpretation Comments Triglycerides Level (test code = 89 Triglycerides Level) [facility]2019-07-09 05:43:00 Test Item Value Reference Range Interpretation Comments Phosphorus Level (test code = 6.3 2.5-4.9 Phosphorus Level) [facility]2019-07-09 05:43:00 Test Item Value Reference Range Interpretation Comments Magnesium Level (test code = Magnesium 2.3 1.8-2.4 Level) [facility]2019-07-09 05:43:00 Test Item Value Reference Range Interpretation Comments LDL Cholesterol, Calculated (test code 47 1 = LDL Cholesterol, Calculated) [facility]2019-07-09 05:43:00 Test Item Value Reference Range Interpretation Comments HDL Cholesterol (test code = HDL 57 40-60 Cholesterol) [facility]2019-07-09 05:43:00 Test Item Value Reference Range Interpretation Comments Cholesterol/HDL Ratio (test code = 2.14 1 Cholesterol/HDL Ratio) [facility]2019-07-09 05:43:00 Test Item Value Reference Range Interpretation Comments Cholesterol Level (test code = 122 Cholesterol Level) [facility]2019-07-08 19:49:00 Test Item Value Reference Range Interpretation Comments Troponin I (test code = 0.59 See_Comment [Au tomated message] The Troponin I) system which ge nerated this result tra nsmitted reference range : <=0.045. The reference r alba was not used to int erpret this result as normal/abnormal . [facility]2019-07-08 12:50:00 Test Item Value Reference Range Interpretation Comments Hepatitis B Surface Hepatitis B Surface Antigen (test code = Antigen Hepatitis B Surface Antigen) [facility]2019-07-08 12:50:00 Test Item Value Reference Range Interpretation Comments Hepatitis B Surface Hepatitis B Surface Antibody (test code = Antibody Hepatitis B Surface Antibody) [facility]2019-07-08 12:50:00 Test Item Value Reference Range Interpretation Comments Hepatitis B Core Total Hepatitis B Core Total Antibody (test code = Antibody Hepatitis B Core Total Antibody) [facility]2019-07-08 12:50:00 Test Item Value Reference Range Interpretation Comments Hepatitis C Antibody Hepatitis C Antibody (test code = Hepatitis C Antibody) [facility]2019-07-08 12:50:00 Test Item Value Reference Range Interpretation Comments Hepatitis C Ab Signal/Cutoff Ratio 0.05 ratio (test code = Hepatitis C Ab Signal/Cutoff Ratio) [facility]2019-07-08 07:36:00 Test Item Value Reference Range Interpretation Comments Rapid Troponin I (test 0.66 See_Comment [Aut omated message] The code = Rapid Troponin system which generated I) this result tra nsmitted reference range : <=0.045. The reference r alba was not used to int erpret this result as normal/abnormal . [facility]2019-07-08 07:36:00 Test Item Value Reference Range Interpretation Comments [id number]-Kcd-[id number]-Type Natriuretic Peptide (test 87585 code = US-Xve-Q-Type Natriuretic Peptide) [facility]
[2021-11-14 04:46] LABS: Absolute Lymphocytes (CBC) 0.8 K/uL (0.7-4.9); Hematocrit 29.4 % (36.0-45.0); Lymphocytes % 31.1 % (15.3-44.8); MCV 95.7 fL (80-100); MPV 8.1 fL (7.6-11.3); RBC Red Blood Cell Count 3.08 M/uL (3.86-4.86)
[2021-11-14 04:52] LABS: SARS-CoV-2 Antigen Rapid Res Positive (Negative)
[2021-11-14 05:16] LABS: Potassium 4.3 mmol/L (3.5-5.1)
[2021-11-14 05:20] LABS: Troponin High Sensitivity 673.6 pg/mL (<58.9)
--- NOTE | 2021-11-14 05:26 | EDPHYS ---
Physician Documentation [facility] Name: Qiana Valdez Age: 66 yrs Sex: Female : 1955 Arrival Date: 11/14/2021 Time: 04:05 Bed 5 Private MD: ED Physician Croona Bills HPI: 11/14 04:21 This 66 yrs old Female presents to ER via Unassigned with complaints of ms3 Shortness Of Breath. 05:19 The patient has shortness of breath that woke him/her from sleep. Onset: The ms3 symptoms/episode began/occurred just prior to arrival. Duration: The symptoms are continuous, and are unchanged since they started. The patient's shortness of breath is aggravated by nothing, is alleviated by nothing. Associated signs and symptoms: Pertinent positives: chest pain. Severity of symptoms: At their worst the symptoms were moderate in the emergency department the symptoms are unchanged. Historical: - Allergies: 04:34 No Known Allergies; vc1 - Home Meds: 04:34 None [Active]; vc1 - PMHx: 04:34 Chronic ischemic heart disease; Diabetes - IDDM; DIALYSIS MWF; ESRD; GERD; High vc1 Cholesterol; hyperparathyroidism; Hypertension; IRON DEFICIENCY ANEMIA; Myocardial infarction; Pacemaker; - PSHx: 04:34 Coronary artery bypass graft; vc1 - Immunization history:: Adult Immunizations up to date, Client reports receiving the 2nd dose of the Covid vaccine. - Social history:: Smoking status: Patient denies any tobacco usage or history of. ROS: 05:19 Constitutional: Negative for fever, and chills. Eyes: Negative for injury, pain, ms3 redness, and discharge, Neck: Negative for injury, pain, and swelling, Cardiovascular: Negative for chest pain, and palpitations. Abdomen/GI: Negative for abdominal pain, nausea, vomiting, diarrhea, and constipation, MS/Extremity: Negative for injury and deformity, Skin: Negative for injury, rash, and discoloration, Psych: Negative for depression, anxiety, suicide ideation, homicidal ideation, and hallucinations, Allergy/Immunology: Negative for hives, rash, and allergies. 05:19 Respiratory: Positive for shortness of breath. 05:19 All other systems are negative. Exam: 04:20 ECG was reviewed by the Attending Physician. ms3 05:19 Constitutional: This is a well developed, well nourished patient who is awake, alert, ms3 and in no acute distress. Head/Face: Normocephalic, atraumatic. Neck: Trachea midline, no cervical lymphadenopathy. Supple, full range of motion without nuchal rigidity, or vertebral point tenderness. No Meningismus. Chest/axilla: Normal chest wall appearance and motion. Nontender with no deformity. Cardiovascular: Regular rate and rhythm with a normal S1 and S2. No gallops, murmurs, or rubs. Normal PMI, no JVD. No pulse deficits. 05:19 Psych: Awake, alert, with orientation to person, place and time. Behavior, mood, and affect are within normal limits. 05:19 Respiratory: the patient does not display signs of respiratory distress, Respirations: normal, Breath sounds: rales, that are mild, are scattered. Vital Signs: 04:27 BP 172 / 76; Pulse 81; Resp 23; Temp 98.2(O); Pulse Ox 100% on R/A; Weight 61 kg; vc1 Height 5 ft. 3 in. (160.02 cm); Pain 7/10; 04:58 BP 162 / 72; Pulse 79; Resp 14; Pulse Ox 99% on R/A; Pain 7/10; tw5 06:13 BP 145 / 61; vc1 06:17 Pulse 70; Resp 16; Pulse Ox 99% ; vc1 04:27 Body Mass Index 23.82 (61.00 kg, 160.02 cm) vc1 04:58 "Pain is in my chest." tw5 MDM: 04:05 Patient medically screened. ms3 05:35 Differential diagnosis: Anemia CHF exacerbation, Myocardial Infarction pulmonary edema. ms3 Data reviewed: vital signs, nurses notes, lab test result(s), EKG, radiologic studies, and as a result, I will admit patient. Data interpreted: monitoring tech: rate is 81 beats/min, rhythm is normal sinus rhythm, with no ectopy, Interpretation: normal rate, normal rhythm. Counseling: I had a detailed discussion with the patient and/or guardian regarding: the historical points, exam findings, and any diagnostic results supporting the discharge/admit diagnosis, lab results, radiology results, the need for further work-up and treatment in the hospital. ED course: Discussed case with Atlha, Attema, [employer] and he accepts patient on behalf of Dr Argueta.. 11/14 04:11 Order name: Basic Metabolic Panel; Complete Time: 05:35 la1 11/14 04:11 Order name: CBC with Diff; Complete Time: 04:51 la1 11/14 04:11 Order name: NT PRO-BNP; Complete Time: 05:35 la1 11/14 04:11 Order name: Troponin HS; Complete Time: 05:35 la1 11/14 04:23 Order name: SARS RAPID; Complete Time: 05:21 ms3 11/14 04:56 Order name: CRP; Complete Time: 05:34 la1 11/14 04:11 Order name: XRAY Chest (1 view) la1 11/14 04:11 Order name: EKG; Complete Time: 04:16 la1 11/14 04:11 Order name: Cardiac monitoring; Complete Time: 04:16 la1 11/14 04:11 Order name: EKG - Nurse/Tech; Complete Time: 04:17 la1 11/14 04:11 Order name: IV Saline Lock; Complete Time: 04:16 la11/14 04:11 Order name: Labs collected and sent; Complete Time: 04:25 la1 11/14 04:11 Order name: O2 Per Protocol; Complete Time: 04:16 la1 11/14 04:11 Order name: O2 Sat Monitoring; Complete Time: 04:16 la EC:20 Rate is 80 beats/min. Rhythm is regular. QRS [place] is Normal. QRS interval is normal. ST ms3 Segment is depressed in leads I, II, aVF. Clinical impression: NSR with ST Depressions. Interpreted by me. Reviewed by me. Administered Medications: 05:34 Drug: morphine 2 mg Route: IVP; Infused Over: 4 mins; Site: left wrist; vc1 06:16 Follow up: Response: No adverse reaction; Marked relief of symptoms vc1 Disposition Summary: 11/14/21 05:26 Hospitalization Ordered Hospitalization Status: Observation ms3 Provider: Ledy Argueta ms3 Location: Telemetry/MedSurg (observation) ms3 Condition: Stable ms3 Problem: new ms3 Symptoms: are unchanged ms3 Bed/Room Type: Standard ms3 Room Assignment: 417(11/14/21 06:02) mw Diagnosis - Chest pain, unspecified ms3 - Shortness of breath ms3 - Elevated Troponin ms3 Forms: - Medication Reconciliation Form ms3 - SBAR form ms3 Signatures: Dispatcher [employer] Gayle Bowie RN RN mw Talha Stern, TUMBLER MACHINE OPERATOR-C TUMBLER MACHINE OPERATOR-Cla1 Corona Bills DO DO ms3 Dina Cleary RN RN vc1 Corrections: (The following items were deleted from the chart) 06:02 05:26 ms3 mw
--- NOTE | 2021-11-14 05:26 | ER ---
Nurse's Notes [facility] Name: Qiana Mendoza Age: 66 yrs Sex: Female : 1955 Arrival Date: 11/14/2021 Time: 04:05 Bed 5 Private MD: Diagnosis: Chest pain, unspecified;Shortness of breath;Elevated Troponin Presentation: 11/14 04:27 Chief complaint: EMS states: "Pt stated she woke up feeling short of breath when we vc1 arrived she was 93% on room air. She had dialysis yesterday and they removed 3 liters, on our way here she started complaining of midsternal chest pain and chest tightness.". Coronavirus screen: Vaccine status: Patient reports receiving the 2nd dose of the covid vaccine. Pfizer; plus booster shortness of breath, Client presents with at least one sign or symptom that may indicate coronavirus-19. Standard/surgical mask placed on the client. Provider contacted for isolation considerations. Ebola Screen: No symptoms or risks identified at this time. Initial Sepsis Screen: Does the patient meet any 2 criteria? RR > 20 per min. No. Patient's initial sepsis screen is negative. Does the patient have a suspected source of infection? No. Patient's initial sepsis screen is negative. Risk Assessment: Do you want to hurt yourself or someone else? Patient reports no desire to harm self or others. Onset of symptoms was November 14, 2021 at 03:30. 04:27 Method Of Arrival: EMS: [facility] vc1 04:27 Acuity: SIXTO 3 vc1 Triage Assessment: 04:05 General: Appears in no apparent distress. ill, Behavior is anxious. Pain: Complains of vc1 pain in mid-sternal area Pain does not radiate. Pain currently is 7 out of 10 on a pain scale. Quality of pain is described as sharp. EENT: No deficits noted. Neuro: Level of Consciousness is awake, alert, obeys commands, Oriented to person, place, time, situation, Appropriate for age. Cardiovascular: Capillary refill < 3 seconds Patient's skin is warm and dry. Respiratory: Reports shortness of breath at rest Airway is patent Respiratory effort is even, unlabored, Respiratory pattern is regular, symmetrical, Breath sounds are diminished in right upper lobe, right posterior upper lobe and right posterior middle lobe Onset: The symptoms/episode began/occurred just prior to arrival, the patient has moderate shortness of breath. GI: No deficits noted. : No deficits noted. Derm: No deficits noted. Musculoskeletal: No deficits noted. Historical: - Allergies: 04:34 No Known Allergies; vc1 - Home Meds: 04:34 None [Active]; vc1 - PMHx: 04:34 Chronic ischemic heart disease; Diabetes - IDDM; DIALYSIS MWF; ESRD; GERD; High vc1 Cholesterol; hyperparathyroidism; Hypertension; IRON DEFICIENCY ANEMIA; Myocardial infarction; Pacemaker; - PSHx: 04:34 Coronary artery bypass graft; vc1 - Immunization history:: Adult Immunizations up to date, Client reports receiving the 2nd dose of the Covid vaccine. - Social history:: Smoking status: Patient denies any tobacco usage or history of. Screenin:36 Abuse screen: Denies threats or abuse. Nutritional screening: No deficits noted. vc1 Tuberculosis screening: No symptoms or risk factors identified. Fall Risk None identified. Assessment: 04:05 Reassessment: See triage assessment. vc1 04:05 Cardiovascular: Rhythm is regular. vc1 04:58 General: aspen mendoza daughter- Emergency contact and has all the information for the tw5 patient. [phone]. 05:35 Reassessment: Pt states she is really scared about having covid because that is how her vc1 . Educated patient on the change in treatment of covid and what we know now. Informed provider about patients anxiety. No new orders. Vital Signs: 04:27 BP 172 / 76; Pulse 81; Resp 23; Temp 98.2(O); Pulse Ox 100% on R/A; Weight 61 kg; vc1 Height 5 ft. 3 in. (160.02 cm); Pain 7/10; 04:58 BP 162 / 72; Pulse 79; Resp 14; Pulse Ox 99% on R/A; Pain 7/10; tw5 06:13 BP 145 / 61; vc1 06:17 Pulse 70; Resp 16; Pulse Ox 99% ; vc1 04:27 Body Mass Index 23.82 (61.00 kg, 160.02 cm) vc1 04:58 "Pain is in my chest." 5 ED Course: 04:05 Patient arrived in ED. tw 04:05 Corona Bills DO is Attending Physician. ms3 04:09 Patient has correct armband on for positive identification. Bed in low position. Call 5 light in reach. Side rails up X2. Warm blanket given. human resource professional on. Pulse ox on. NIBP on. 04:09 Maintain EMS IV. Dressing intact. Good blood return noted. Site clean \\T\\ dry. 5 04:18 Initial lab(s) drawn, by ED staff, sent to lab. EKG done, by ED staff, reviewed by yara Bills DO. 04:34 Triage completed. vc1 04:34 Arm band placed on right wrist. vc1 04:42 XRAY Chest (1 view) In Process Unspecified. EDMS 05:05 Dina Cleary, SUNITA is Primary Nurse. vc1 05:25 Ledy Argueta MD is Hospitalizing Provider. ms3 06:17 No provider procedures requiring assistance completed. Patient admitted, IV remains in vc1 place. Administered Medications: 05:34 Drug: morphine 2 mg Route: IVP; Infused Over: 4 mins; Site: left wrist; vc1 06:16 Follow up: Response: No adverse reaction; Marked relief of symptoms vc1 Medication: 05:08 VIS not applicable for this client. vc1 Outcome: 05:26 Decision to Hospitalize by Provider. ms3 06:17 Condition: good vc1 06:17 Instructed on the need for admit. 06:30 Admitted to Tele accompanied by tech, via stretcher, room 417, Report called to lópez Casillas RN 06:31 Patient left the ED. vc1 Signatures: Dispatcher [employer] Millie Whiteside Corona Harrison DO DO ms3 Soledad Dubon 5 Dina Cleary, RN RN vc1
[2021-11-14] MEDS ORDERED: MORPHINE 2 MG/ML SYR ONE (05:36)
--- NOTE | 2021-11-14 05:39 | P.HP ---
Certification for Inpatient Patient admitted to: Observation With expected LOS: <2 Midnights Patient will require the following post-hospital care: None Practitioner: I am a practitioner with admitting privileges, knowledge of patient current condition, hospital course, and medical plan of care. Services: Services provided to patient in accordance with Admission requirements found in Title 42 Section 412.3 of the Code of Federal Regulations <Talha Stern - Last Filed: 11/14/21 05:31> Patient History Date of Service: 11/14/21 Reason for admission: Chest pain History of Present Illness: 66-year-old female history of ESRD on HD MWF who did complete dialysis yesterday, [id number] diabetes, CAD status post CABG with recent stents and pacemaker placement, hypertension, hyperlipidemia presents to the emergency department for chest pain. She reports she was resting early this morning when she began to have palpitations and shortness of breath EMS was called her palpitations and shortness of breath seem to improve which began having pressure-like substernal chest pain. She was evaluated in the emergency department her labs were significant for a moderately elevated high-sensitivity troponin as well as hyperglycemia and mild pancytopenia which has been present on previous admissions. She also tested positive on her rapid COVID test denies any ill contacts or viral symptoms. She was reportedly treated for pneumonia during her previous admission about 1 month ago as well EKG was without STEMI cr iteria chest x-ray with questionable infiltrate versus volume overload appears worse in the right lower lobe pending official radiology interpretation. Possible COVID-19 pneumonia. Patient currently saturating well on room air, she also does have home oxygen as needed 2.5 to 3 L. Will admit for further evaluation and management of her chest pain. - Past Medical/Surgical History Diabetic: Yes -: Hypertension -: Diabetes mellitus type 2 diet controlled -: ESRD - MWF -: Nonfuctioning LLE fistula -: Hyperlipidemia -: GERD -: CAD with prior stent, CABG -: Hyperparathyroidism -: Anemia of chronic disease with iron deficiency -: Diabetic neuropathy -: COVID-19 01/21/2020 -: Triple bypass 2016 -: Pacemaker -: Tubal ligation -: Fistula aneursym reconstruction 4 times -: Bilateral cataract surgery Psychosocial/ Personal History: Lives at home with daughter - Family History Mother -: Heart disease, Diabetes Father -: Heart disease, Diabetes - Social History Smoking Status: Never smoker Alcohol use: No CD- Drugs: No Caffeine use: Yes Place of Residence: Home <Talha Stern - Last Filed: 11/14/21 05:31> Date of Service: 11/15/21 <Ledy Arguetazal - Last Filed: 11/15/21 13:09> Allergies No Known Allergies Allergy (Verified 03/09/21 23:52) Home Medications: Aspirin [Ecotrin 81 MG] 81 mg PO DAILY 10/13/21 Atorvastatin Calcium [Lipitor] 40 mg PO BEDTIME 10/13/21 Carvedilol [Coreg] 12.5 mg PO BID 10/13/21 Hydralazine [Apresoline*] 50 mg PO DAILY 10/13/21 Isosorbide Mononitrate [Isosorbide Mononitrate ER] 30 mg PO DAILY #30 tab.er.24h 10/13/21 Mirtazapine 15 mg PO BEDTIME 10/13/21 NIFEdipine [Procardia*] 10 mg PO TID 10/13/21 Na Bicarb Tab [Sodium Bicarb 325 MG Tab*] 1,300 mg PO BID #120 tab 10/13/21 Trazodone [Desyrel*] 50 mg PO BEDTIME 10/13/21 levETIRAcetam [Keppra*] 500 mg PO BEDTIME 10/13/21 Clopidogrel Bisulfate [Plavix*] 75 mg PO DAILY #30 tablet 10/16/21 predniSONE [Prednisone*] 20 mg PO BID #11 tab 11/15/21 Review of Systems 10-point ROS is otherwise unremarkable Respiratory: Shortness of Breath Cardiovascular: Chest Pain <LeenaTalha Coles - Last Filed: 11/14/21 05:31> Physical Examination - Physical Exam General: Alert, In no apparent distress, Oriented x3 HEENT: Atraumatic, PERRLA, Mucous membr. moist/pink, EOMI, Sclerae nonicteric Neck: Supple, 2+ carotid pulse no bruit, No LAD, Without JVD or thyroid abnormality Respiratory: Clear to auscultation bilaterally, Normal air movement Cardiovascular: Regular rate/rhythm, Normal S1 S2 Capillary refill: <2 Seconds Gastrointestinal: Normal bowel sounds, No tenderness Musculoskeletal: No tenderness Integumentary: No rashes Neurological: Normal speech, Normal strength at 5/5 x4 extr, Normal tone, Normal affect - Studies Laboratory Data (last 24 hrs) 11/14/21 04:18: WBC 2.7 L, Hgb 9.8 L, Hct 29.4 L, Plt Count 151 L 11/14/21 04:18: Sodium 133 L, Potassium 4.3, BUN 41 H, Creatinine 4.12 H, Glucose 322 H <Talha Stern - Last Filed: 11/14/21 05:31> - Studies Laboratory Data (last 24 hrs) 11/15/21 06:30: Sodium 132 L, Potassium 4.8, BUN 67 H D, Creatinine 5.39 H* D, Glucose 152 H, Total Bilirubin 0.6, AST 22, ALT 23, Alkaline Phosphatase 163 H 11/15/21 06:30: WBC 3.2 L D, Hgb 8.9 L, Hct 27.0 L, Plt Count 123 L <Ledy Argueta - Last Filed: 11/15/21 13:09> Assessment and Plan - Plan Assessment: Chest pain rule out ACS-history CAD status post CABG, pacemaker, recent heart cath with stent placement ESRD on HD MWF Diabetes mellitus type 2diet controlled with hyperglycemia Normocytic anemia/mild pancytopenia Hypertension Hyperlipidemia Plan: Chest pain rule out ACS-history CAD status post CABG, pacemaker, recent heart cath with stent placement: Patient with similar presentation about 1 month ago had positive stress test followed by heart catheterization with stent placement, report unavailable for review this time. Patient reports she has been compliant with her aspirin and Plavix since discharge from the hospital. Continue other home medications trend troponin and monitor on telemetry. Will cover with therapeutic Lovenox given elevated troponin. Cardiology consult in place. ESRD with decreased renal clearance likely contributing to elevated troponin. Patient also had an echocardiogram during her previous admission which showed mildly depressed left ventricular ejection fraction 45 to 50% with mild global hypokinesis and moderate diastolic dysfunction, pulmonary hypertension. Patient did incidentally test positive for COVID chest x-ray shows right-sided pleural effusion. ESRD on HD MWF: Nephrology consult in place patient did have dialysis yesterday. Diabetes mellitus type 2diet controlled with hyperglycemia: Patient reports her diabetes is diet controlled her sugars are well controlled at home blood sugar elevated in the ED. We will provide a [facility] Accu-Cheks, sliding scale insulin during hospitalization. Normocytic anemia/mild pancytopenia: I have discussed this during her previous admission with patient, transfuse as necessary to maintain hemoglobin greater than 8. Further follow-up with hematology outpatient. Hypertension: Home medications continued. Hyperlipidemia: Home medications continued. DVT PPX: Therapeutic Lovenoxrenally dosed Code status: Full Discharge Plan: Home Plan to discharge in: 24 Hours - Advance Directives Does patient have a Living Will: No Does patient have a Durable POA for Healthcare: No - Code Status/Comfort Care Code Status Assessed: Yes (Full code) Critical Care: No Time Spent Managing Pts Care (In Minutes): 70 <Talha Stern - Last Filed: 11/14/21 05:31>
[2021-11-14] MEDS ORDERED: ACETAMINOPHEN 500 MG TAB PO PRN (06:35)
[2021-11-14] MEDS ORDERED: ONDANSETRON 4 MG/2 ML VIAL IV PRN (06:35)
[2021-11-14] MEDS ORDERED: GLUCAGON 1 MG/VIAL IM PRN (06:35)
[2021-11-14] MEDS ORDERED: D50W 25 GM/50 ML SYRINGE IV PRN (06:35)
[2021-11-14] MEDS ORDERED: D10W 125 ML IV PRN (07:06)
[2021-11-14] MEDS: ASPIRIN EC 81 MG TAB PO SCH (08:36)
[2021-11-14] MEDS: ISOSORBIDE MONO SR 30 MG TAB PO SCH (08:36)
[2021-11-14] MEDS: carvediloL 12.5 MG TAB PO SCH ×2 (08:36→18:09)
[2021-11-14] MEDS: CLOPIDOGREL 75 MG TABLET PO SCH (08:36)
[2021-11-14] MEDS: NIFEdipine 10 MG CAP PO SCH ×3 (08:37→21:09)
[2021-11-14] MEDS: INSULIN -REGULAR HUMAN 50 UNIT/0.5 ML ML SQ SCH ×4 (08:37→21:10)
[2021-11-14] MEDS ORDERED: ENOXAPARIN 100 MG/ML SYR SQ SCH (09:00)
[2021-11-14] MEDS ORDERED: SODIUM BICARB 325 MG TAB PO SCH (09:00)
--- NOTE | 2021-11-14 09:55 | P.CNS ---
Date of Consult: 11/14/21 Reason for Consult: ESRD Requesting Physician: Ledy Argueta Chief Complaint: Chest pain History of Present Illness: 66F w/ PMHx of ESRD on outpt HD qMWF at [facility], last HD yesterday, Htn, renal artery stenosisk, HLD, DM2, anemia, CAD s/p CABG s/p PCI s/p PPM, & covid infection, who p/w chest pain, palpitations & SOB, admitted for further eval & mngt of her chest pain. Allergies No Known Allergies Allergy (Verified 03/09/21 23:52) Home Medications: Amoxicillin 500 mg PO DAILY 10/13/21 Aspirin [Ecotrin 81 MG] 81 mg PO DAILY 10/13/21 Atorvastatin Calcium [Lipitor] 40 mg PO BEDTIME 10/13/21 Carvedilol [Coreg] 12.5 mg PO BID 10/13/21 Clopidogrel Bisulfate [Clopidogrel] 75 mg PO DAILY 10/13/21 Hydralazine [Apresoline*] 50 mg PO DAILY 10/13/21 Isosorbide Mononitrate [Isosorbide Mononitrate ER] 30 mg PO DAILY #30 tab.er.24h 10/13/21 Mirtazapine 15 mg PO BEDTIME 10/13/21 NIFEdipine [Procardia*] 10 mg PO TID 10/13/21 Na Bicarb Tab [Sodium Bicarb 325 MG Tab*] 1,300 mg PO BID #120 tab 10/13/21 Trazodone [Desyrel*] 50 mg PO BEDTIME 10/13/21 levETIRAcetam [Keppra*] 500 mg PO BEDTIME 10/13/21 Fluticasone [Flonase 50mcg Nasal [place]] 2 sprays NS DAILY #1 btl 10/14/21 Clopidogrel Bisulfate [Plavix] 75 mg PO DAILY #30 tablet 10/16/21 - Past Medical/Surgical History Diabetic: Yes -: Hypertension -: Diabetes mellitus type 2 diet controlled -: ESRD - MWF -: Nonfuctioning LLE fistula -: Hyperlipidemia -: GERD -: CAD with prior stent, CABG -: Hyperparathyroidism -: Anemia of chronic disease with iron deficiency -: Diabetic neuropathy -: COVID-19 01/21/2020 -: Triple bypass 2016 -: Pacemaker -: Tubal ligation -: Fistula aneursym reconstruction 4 times -: Bilateral cataract surgery Psychosocial/ Personal History: Lives at home with daughter - Family History Mother Medical History: Heart disease, Diabetes Father Medical History: Heart disease, Diabetes - Social History Smoking Status: Unknown if ever smoked Alcohol use: No CD- Drugs: No Caffeine use: Yes Place of Residence: Home Review of Systems General: Weakness Eyes: Unremarkable ENT: Unremarkable Respiratory: Unremarkable Cardiovascular: Chest Pain Gastrointestinal: Unremarkable Genitourinary: Unremarkable Musculoskeletal: Unremarkable (gen weakness) Integumentary: Unremarkable Neurological: Weakness Lymphatics: Unremarkable Physical Examination Temp Pulse Resp BP Pulse Ox 97.8 F 74 18 175/77 H 95 11/14/21 07:59 11/14/21 08:37 11/14/21 07:59 11/14/21 08:37 11/14/21 07:59 General: Other (appears chronically ill) HEENT: Atraumatic, Normocephalic Neck: Supple, JVD not distended Respiratory: Other (symmetric chest expansion) Cardiovascular: No rubs, No murmurs Gastrointestinal: Soft and benign, No rebound Musculoskeletal: No clubbing Integumentary: No warmth Neurological: Normal speech, Normal tone Urinary: Other (no bladder distention) External genitalia: Deferred Rectal: Deferred Laboratory Data (last 24 hrs) 11/14/21 04:18: WBC 2.7 L, Hgb 9.8 L, Hct 29.4 L, Plt Count 151 L 11/14/21 04:18: Sodium 133 L, Potassium 4.3, BUN 41 H, Creatinine 4.12 H, Glucose 322 H Conclusions/Impression: 1. End-stage renal disease on outpt HD MWF at [facility]. Received HD yesterday. No acute indication for HD today. Cont HD MWF sked. Monitor renal panel. 2. Volume overload. HD as above. 3. Chest pain. Hx of CAD s/p NSTEMI s/p CABG s/p PPM s/p recent PCI. Per Cardiology. 4. Hypertension. BP above goal. Add Lisinopril 10 mg po daily. 5. Renal artery stenosis, stable. Add Lisinopril as above. 6. Anemia. Monitor H/H 7. Renal osteodystrophy. Monitor Ca & Phos.
[2021-11-14] MEDS: HEPARIN 5000 UNIT/ML 1 ML VIAL SQ SCH ×2 (10:55→21:09)
[2021-11-14] MEDS: lisinopriL 10 MG TAB PO SCH (10:57)
[2021-11-14] MEDS ORDERED: HYDROCORTISONE SUC 100 MG INJ IV ONE (11:00)
--- NOTE | 2021-11-14 20:20 | RAD REPORT ---
EXAM DESCRIPTION: RAD - Chest Single View - 11/14/2021 4:40 am CLINICAL HISTORY: SOB COMPARISON: None. FINDINGS: Single frontal radiograph view of the chest. Cardiomediastinal silhouette: Cardiomegaly. Prior median sternotomy. Atherosclerotic calcification of thoracic aorta. Right chest wall multilead generator. Lungs: Low lung volumes. Right pleural effusion with right basilar opacity. No pneumothorax. Bones: Degenerative change of the spine and shoulders. Upper abdomen: No abnormality identified. IMPRESSION: 1. Right pleural effusion with likely underlying atelectasis or consolidation. 2. Cardiomegaly. Electronically signed by: Pierre James 11/14/2021 5:31 AM CDT Due to temporary technical issues with the PACS/Fluency reporting system, reports are being signed by the in house radiologists without review as a courtesy to insure prompt reporting. The interpreting radiologist is fully responsible for the content of the report.
[2021-11-14] MEDS ORDERED: levETIRAcetam 500 MG TAB PO SCH (21:00)
[2021-11-14] MEDS ORDERED: ATORVASTATIN 40 MG TAB PO SCH (21:00)
[2021-11-14] MEDS: MORPHINE 2 MG/ML SYR IV PRN (21:46)
[2021-11-15] MEDS: carvediloL 12.5 MG TAB PO SCH (06:26)
[2021-11-15 06:46] VITALS: BMI 26.4
[2021-11-15 07:11] LABS: Absolute Lymphocytes (CBC) 0.9 K/uL (0.7-4.9); Lymphocytes % 29.9 % (15.3-44.8); MCV 97.1 fL (80-100); RBC Red Blood Cell Count 2.78 M/uL (3.86-4.86)
[2021-11-15] MEDS: INSULIN -REGULAR HUMAN 50 UNIT/0.5 ML ML SQ SCH ×2 (07:30→11:30)
[2021-11-15 07:41] LABS: Albumin 2.9 g/dL (3.4-5.0); Bilirubin Total 0.6 mg/dL (0.2-1.0); Potassium 4.8 mmol/L (3.5-5.1)
[2021-11-15] MEDS: ASPIRIN EC 81 MG TAB PO SCH (08:24)
[2021-11-15] MEDS: NIFEdipine 10 MG CAP PO SCH ×2 (08:24→13:42)
[2021-11-15] MEDS: ISOSORBIDE MONO SR 30 MG TAB PO SCH (08:24)
[2021-11-15] MEDS: lisinopriL 10 MG TAB PO SCH (08:24)
[2021-11-15] MEDS: CLOPIDOGREL 75 MG TABLET PO SCH (08:25)
[2021-11-15] MEDS: HEPARIN 5000 UNIT/ML 1 ML VIAL SQ SCH (08:25)
[2021-11-15] MEDS: MORPHINE 2 MG/ML SYR IV PRN (09:21)
[2021-11-15 09:32] VITALS: O2SAT 100
--- NOTE | 2021-11-15 10:26 | P.PN ---
Subjective Date of Service: 11/15/21 Chief Complaint: Chest pain Subjective: No new changes Physical Examination - Vital Signs Temperature: 97.6 F Blood Pressure: 118/69 Pulse: 75 Respirations: 16 Pulse Ox (%): 97 - Physical Exam General: Other (appears as her stated age) HEENT: Atraumatic, Normocephalic Neck: Supple, JVD not distended Respiratory: Other (symmetric chest expansion) Cardiovascular: No rubs, No murmurs Gastrointestinal: Soft and benign, No rebound Musculoskeletal: No clubbing Integumentary: No warmth Neurological: Normal speech, Normal tone Urinary: Other (no bladder distention) External genitalia: Deferred Rectal: Deferred - Studies Laboratory Data (last 24 hrs) 11/15/21 06:30: Sodium 132 L, Potassium 4.8, BUN 67 H D, Creatinine 5.39 H* D, Glucose 152 H, Total Bilirubin 0.6, AST 22, ALT 23, Alkaline Phosphatase 163 H 11/15/21 06:30: WBC 3.2 L D, Hgb 8.9 L, Hct 27.0 L, Plt Count 123 L Assessment And Plan - Plan 1. End-stage renal disease on outpt HD MWF at [facility]. No acute indication for HD today. Cont HD MWF sked. Monitor renal panel. 2. Volume overload. HD as above. 3. Chest pain. Hx of CAD s/p NSTEMI s/p CABG s/p PPM s/p recent PCI. Per Cardiology. 4. Hypertension. BP above goal. Add Lisinopril 10 mg po daily. 5. Renal artery stenosis, stable. Add Lisinopril as above. 6. Anemia. Monitor H/H 7. Renal osteodystrophy. Monitor Ca & Phos.
--- NOTE | 2021-11-15 13:15 | P.DS ---
Discharge Date: 11/15/21 Disposition: ROUTINE DISCHARGE Discharge Condition: GOOD Reason for Admission: Chest pain Consultations: Nephrology Brief History of Present Illness: Patient is a 66-year-old female who came to the hospital with chest discomfort. She was recently seen by cardiology and had a recent work-up performed. She had a stent placed earlier this year. She is on antiplatelet therapy and has been taking her medication. She also has bypass surgery. She has been having pain at the incision site for quite a while. She was admitted to the hospital for further treatment. Hospital Course: Patient chest pain is better after steroids. She is feeling much improved. At this time, she is stable for discharge with outpatient follow-up. Vital Signs/Physical Exam: Temp Pulse Resp BP Pulse Ox 97.5 F 70 16 115/59 L 94 11/15/21 11:59 11/15/21 11:59 11/15/21 11:59 11/15/21 11:59 11/15/21 11:59 General: Alert, In no apparent distress, Oriented x3 Laboratory Data at Discharge: WBC 3.2 K/uL (4.3-10.9) L D 11/15/21 06:30 Hgb 8.9 g/dL (12.0-15.0) L 11/15/21 06:30 Hct 27.0 % (36.0-45.0) L 11/15/21 06:30 Plt Count 123 K/uL (152-406) L 11/15/21 06:30 Sodium 132 mmol/L (136-145) L 11/15/21 06:30 Potassium 4.8 mmol/L (3.5-5.1) 11/15/21 06:30 BUN 67 mg/dL (7-18) H D 11/15/21 06:30 Creatinine 5.39 mg/dL (0.55-1.3) H* D 11/15/21 06:30 Glucose 152 mg/dL (74-106) H 11/15/21 06:30 Total Bilirubin 0.6 mg/dL (0.2-1.0) 11/15/21 06:30 AST 22 U/L (15-37) 11/15/21 06:30 ALT 23 U/L (12-78) 11/15/21 06:30 Alkaline Phosphatase 163 U/L (45-117) H 11/15/21 06:30 Home Medications: Aspirin [Ecotrin 81 MG] 81 mg PO DAILY 10/13/21 Atorvastatin Calcium [Lipitor] 40 mg PO BEDTIME 10/13/21 Carvedilol [Coreg] 12.5 mg PO BID 10/13/21 Hydralazine [Apresoline*] 50 mg PO DAILY 10/13/21 Isosorbide Mononitrate [Isosorbide Mononitrate ER] 30 mg PO DAILY #30 tab.er.24h 10/13/21 Mirtazapine 15 mg PO BEDTIME 10/13/21 NIFEdipine [Procardia*] 10 mg PO TID 10/13/21 Na Bicarb Tab [Sodium Bicarb 325 MG Tab*] 1,300 mg PO BID #120 tab 10/13/21 Trazodone [Desyrel*] 50 mg PO BEDTIME 10/13/21 levETIRAcetam [Keppra*] 500 mg PO BEDTIME 10/13/21 Clopidogrel Bisulfate [Plavix*] 75 mg PO DAILY #30 tablet 10/16/21 predniSONE [Prednisone*] 20 mg PO BID #11 tab 11/15/21 New Medications: predniSONE [Prednisone*] 20 mg PO BID #11 tab Physician Discharge Instructions: -DC IV and DC home -Follow-up with PCP in 1 to 2 weeks -Follow-up with Cardiology in 1 to 2 weeks -Please call Dr. Argueta at [phone] if any questions regarding hospital stay -Please call nursing station at [phone] if any nursing or medication questions -Return to the emergency room if symptoms worsen Diet: AHA Activity: Fall precautions Followup: Robert Knapp MD [Primary Care Provider] - Time spent managing pt's care (in minutes): 35
[2021-11-15] MEDS ORDERED: HYDROCODONE/APAP 10/325 TAB PO ONE (14:00)
--- NOTE | 2021-11-15 23:21 | CON ---
Date of Consultation: 11/14/2021 Reason For Consultation: Elevated troponin. History Of Present Illness: 66-year-old female, known to have history of coronary artery disease, end-stage renal disease, on dialysis Tuesday, Tuesday, and Tuesday, hypertension, diabetes, and history of CABG, presented to the emergency room with shortness of breath and cough, some chest discomfort. No nausea, vomiting, or diarrhea. Thought to be positive for COVID. Evaluated by bedside. She denied having any chest pain. No other complaints. Past Medical History: As outlined above. Medications: Refer to reconciliation sheet for detailed list. Allergies: NO KNOWN DRUG ALLERGIES. Family History: No premature coronary artery disease or cancer. Social History: Does not smoke or drink. Does not use any drugs. Review of Systems: All systems reviewed. They are negative except for mentioned in HPI. Physical Examination: Vital Signs: Reviewed. Head and Neck Exam: Pupils are equal and reactive to light. Intact eye movements. No JVD. No cervical lymphadenopathy. Neck is supple. Thyroid is not enlarged. Lungs: Clear to auscultation bilaterally. No rhonchi, rales, or crackles. No accessory muscle use. Heart: Regular rate and rhythm. No extra sounds. Abdomen: Soft and nontender. Bowel sounds positive. No organomegaly. No masses or hernia. No rigidity or rebound. Extremities: No clubbing or cyanosis. Intact pulses. Skin: No rash. No nodules. Neurologic: Alert, awake, no acute focal deficits appreciated. Investigations: Troponin 858 and creatinine 4.1. Assessment And Recommendations: Elevated troponin, likely due to demand ischemia. Trend 1 more set until trends down and then further recommendations to follow. I believe this slight elevation is due to the active infection of COVID. At this point, no further cardiac workup will be recommended and we will plan for outpatient stress test on her. /EVAN Voice ID: [id number] Report ID: [id number] SHRAVAN
[2021-11-16 07:06] VITALS: BP 118/69; TEMP 97.6
--- NOTE | 2021-11-17 08:25 | EKG ---
Test Date: 2021-11-14 Test Time: 04:20:13 Field Cane Scale Clerk: LIS MEASUREMENT RESULTS: Intervals: Rate: 80 MT: 132 QRSD: 98 QT: 454 QTc: 523 [place]: P: 106 MT: 132 QRS: 19 T: 240 INTERPRETIVE STATEMENTS: Normal sinus rhythm Incomplete right bundle branch block ST & T wave abnormality, consider inferior ischemia ST & T wave abnormality, consider anterior ischemia Prolonged QT Abnormal ECG Compared to ECG 10/12/2021 11:19:02 Incomplete right bundle-branch block now present ST (T wave) deviation now present Possible ischemia now present Prolonged QT interval now present Ventricular-paced complex(es) or rhythm no longer present Right bundle-branch block no longer present Electronically Signed On 11-17-21 08:12:46 CDT by Papi Mi
== END 2021-11-15 16:20 | disposition home or self-care (01) ==
LOC: ER 03:53 → ERHOLD 05:01 → 4TH 06:16 → INTOOBSV 11-15 09:12 → OBSVTOIN 11-15 09:12
PROVIDERS: ADMIT Hospitalist; ATTEND Hospitalist
DX: R07.9 Chest pain, unspecified (principal); I25.10 Atherosclerotic heart disease of native coronary artery without angina pectoris; I12.0 Hypertensive chronic kidney disease with stage 5 chronic kidney disease or end stage renal disease; E11.22 Type 2 diabetes mellitus with diabetic chronic kidney disease; E11.65 Type 2 diabetes mellitus with hyperglycemia; N18.6 End stage renal disease; Z99.2 Dependence on renal dialysis; D63.1 Anemia in chronic kidney disease; U07.1 COVID-19; R77.8 Other specified abnormalities of plasma proteins; E87.70 Fluid overload, unspecified; E78.5 Hyperlipidemia, unspecified; I25.2 Old myocardial infarction; D61.818 Other pancytopenia; E11.40 Type 2 diabetes mellitus with diabetic neuropathy, unspecified; K21.9 Gastro-esophageal reflux disease without esophagitis; E21.3 Hyperparathyroidism, unspecified; D50.9 Iron deficiency anemia, unspecified; I70.1 Atherosclerosis of renal artery; N25.0 Renal osteodystrophy; Z99.81 Dependence on supplemental oxygen; Z86.16 Personal history of COVID-19; Z95.1 Presence of aortocoronary bypass graft; Z95.5 Presence of coronary angioplasty implant and graft; Z95.0 Presence of cardiac pacemaker; Z79.02 Long term (current) use of antithrombotics/antiplatelets; Z79.82 Long term (current) use of aspirin; Z79.52 Long term (current) use of systemic steroids; Z79.899 Other long term (current) drug therapy; Z98.51 Tubal ligation status; Z82.49 Family history of ischemic heart disease and other diseases of the circulatory system; Z83.3 Family history of diabetes mellitus
CPT/HCPCS: 93005; 85025 ×2; 80048; 36415 ×2; 82947 ×6; 84484 ×3; 80053; 83880; 86140; 71045; 96374; 99285; 87811; J1815 ×2; J1644 ×3; J2270 ×3; J1720; G0378 ×3

== ENCOUNTER 2021-11-23 12:13 | Inpatient (IN) | payer OTHER ==
--- OUTSIDE RECORDS SUMMARY | 2021-11-23 12:56 | XMS REPORT | Continuity of Care Document ---
:1955 Author Organization [facility] t Address [facility] [place] [address] Care Team Providers Name Role Phone Dianna Nunes MD, Wild Noel Primary Care Physician [phone] ANGELA LOCO Attending Clinician Unavail able ROGER ARAUJO Attending Clinician Unavailable ROGER ARAUJO Attending Clinician Unavailable Robert Knapp MD Attending Clinician Doctor Unassigned, [place] Attending Clinician Unavailable Alfredo TRUJILLO, Brenda Attending Clinician NADYA MENDIOLA Attending Clinician Unavailable LOGAN RUSSO Attending Clinician Unavailable URI UMANZOR Attending Clinician Unavailable Beronica TRUJILLO, Angela Torres Attending Clinician [phone] Mitchel TRUJILLO, Nicola Thomas Attending Clinician Ju TRUJILLO, Krzysztof Biggs Attending Clinician Marissa TRUJILLO, Fadia Smith Attending Clinician Max TRUJILLO, Asad Whitman Attending Clinician [phone] Nikolay TRUJILLO, Vahid Mai Attending Clinician Logan Russo MD Attending Clinician Ellie TRUJILLO, Sade Sandoval Attending Clinician Robert Allen Attending Clinician Unavailable Donte TRUJILLO, Mili Attending Clinician Donald DORSEY, Rakan Damon Attending Clinician Unavailable Dina Hudson Attending Clinician Unavailable Dangelo Ibrahim DO Attending Clinician Neil Thomas MD Attending Clinician NEIL THOMAS Attending Clinician Unavailable Fuentes DORSEY, Niki Attending Clinician Unavailable Jayjay Frazier Attending Clinician Unavailable Kim WHITE, Pascale Attending Clinician ANGELA LOCO Admitting Clinician Unavail able JAMESON KUO Admitting Clinician Unavailable Neil Thomas MD Admitting Clinician NEIL THOMAS Admitting Clinician Unavailable Payers Payer Name Policy Type Policy Number Effective Date Expiration Date S justice [employer] MEDICARE [id number] 2020 00:00:00 MEDICAID OF [place] [id number] 2019 00:00:00 [facility]LLMED/[id number] ADV CHOICE PPO 00:00:00 MEDICAID OF [place] [id number] 2018 00:00:00 Problems Condition Condition Condition Status Onset Resolution Last Treating Co mments Source Name Details Category Date Date Treatment Clinician Date S/P MVR S/P MVR Disease Active Univers (mitral (mitral 628 ity of valve valve 00:00: [place] repair) repair) 00 Medical Branch S/P TVR S/P TVR Disease Active Univers (tricuspid (tricuspid 6-28 it y of valve valve 00:00: [place] repair) repair) 00 Medical Branch Endocardit Endocardit Disease Active U nivers is and is and 6- ity of heart heart 00:00: [place] valve valve 00 Medical disorders disorders Bran ch in in diseases diseases classified classified elsewhere elsewhere Insomnia Insomnia Disease Active Unive rs due to due to 09-04 ity of other other 00:00: [place] mental mental 00 Medical disorder disorder Branch Decreased Decreased Disease Active Uni vers activities activities 6-03 it y of of daily of daily 00:00: [place] living living 00 Medical (ADL) (ADL) Branch Dyslipidem Dyslipidem Disease Active U nivers ia ia 6-03 ity of 00:00: [place] [facility] Decreased Decreased Disease Active Uni vers appetite appetite 6-03 ity of 00:00: [place] [facility] Seizure Seizure Disease Active Univers 6- ity of 00:00: [place] [facility] 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[place] 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 00 [facility] depressive depressive Br anch disorder, disorder, without without psychotic psychotic features features Generalize Generalize Disease Active U nivers d anxiety d anxiety 09-04 ity of disorder disorder 00:00: [place] [facility] Panic Panic Disease Active Univers attacks attacks 09-04 ity of 00:00: [place] [facility] Encounter Encounter Disease Active Uni vers to to 08-28 ity of establish establish 00:00: [place] [facility] 00 [facility] Branch Hepatic Hepatic Disease Active Univers cirrhosis, cirrhosis, 08-28 it y of unspecifie unspecifie [place] hepatic d hepatic 00 Medi yoel cirrhosis cirrhosis Bran ch type, type, unspecifie unspecifie d whether d whether ascites ascites present present E44.1 Mild E44.1 Mild Disease Active U christian protein-ca protein-ca 4-05 it y of sadi avitia 00:00: [place] malnutriti malnutriti 00 Me dical on on Branch Hematochez Hematochez Disease Active U nivers ia ia 4-04 ity of 00:00: [place] [facility] MV MV Disease Active [facility] Endocardit Endocardit 3-17 Felicita kes is is 00:00: [address] Moderate Moderate Disease Active [facility] tricuspid tricuspid 3-17 [facility] regurgitat regurgitat 00:00: Me dical ion S/P ion S/P 00 Center Tricuspid Tricuspid valve valve repair repair (Drs. Russo (Drs. Russo and and Isak Preventza 06/18/2021 06/18/2021 ) ) S/P CABG [...] 3-17 [facility] post-op post-op 00:00: Medical 00 [place] Acute Acute Disease Active [facility] blood loss blood loss 3-17 Felicit[place] kes anemia anemia 00:00: Medical 00 [place] Acute Acute Disease Active [facility] postoperat postoperat 3-17 [place] kes cristela pain cristela pain 00:00: Medica l 00 [place] Acute Acute Disease Active [facility] encephalop encephalop 3-12 Fel[place] kes athy athy 00:00: Medical 00 Center HTN HTN Disease Active [facility] (hypertens (hypertens 3-12 Feilcita kes ion), ion), 00:00: Medical chronic chronic 00 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 [facility] (subarachn (subarachn 3-11 Fel[place] kes oid oid 00:00: Medical hemorrhage hemorrhage 00 Ce nter ) ) Streptococ Streptococ Disease Active [facility] cus bovis cus bovis 3-07 [facility] infection infection 00:00: Medi yoel 00 Center 06/18/21: 06/18/21: Disease Active [facility] t MV Repair MV Repair 3-06 [facility] & TV & TV 00:00: Medical Repair Repair 00 [place] (Russo) (Russo) Pulmonary Pulmonary Disease Active Uni vers hypertensi hypertensi 2-13 it y of on on 00:00: [place] 00 Medical Branch Acute on Acute on Disease Active Unive rs chronic chronic 2-13 ity of respirator [place]ator [place] failure y failure 00 Medi yoel with with Branch hypoxia hypoxia ESRD (end ESRD (end Disease Active Uni vers stage stage 2-12 ity of renal renal 00:00: [place] disease) disease) 00 Medica l on on Branch dialysis dialysis Coronary Coronary Disease Active Unive rs artery artery 2-12 ity of disease disease 00:00: [place] involving involving 00 Medi yoel [place] Branch coronary coronary artery of artery of [place] heart with heart with angina angina pectoris pectoris Pacemaker Pacemaker Disease Active Uni vers 2-12 ity of 00:00: [place] 00 Medical Branch Acute on Acute on Disease Active Unive rs chronic chronic 2-12 ity of diastolic diastolic 00:00: [place] congestive congestive 00 Me dical heart [...] insulin insulin Cerebrovas Cerebrovas Disease Active U nivcatherine cular cular 2-11 ity of accident accident 00:00: [place] (CVA), (CVA), 00 Medical unspecifie unspecifie Br anch d d mechanism mechanism ESRD on ESRD on Disease Active Univers dialysis dialysis 2-11 ity of 00:00: [place] [facility] Fall on Fall on Disease Active Univers concrete concrete 2-11 ity of 00:00: [place] [facility] Acute pain Acute pain Disease Active U nivers of right of right 2-11 ity of knee knee 00:00: [place] [facility] Dizziness Dizziness Disease Active Uni vers 2-11 ity of 00:00: [place] [facility] Lower leg Lower leg Disease Active Uni vers edema edema 2-11 ity of 00:00: [place] [facility] Abnormal Abnormal Disease Active Unive rs EKG EKG 2-11 ity of 00:00: [place] [facility] Chest Chest Disease Active Univers pressure pressure 2-11 ity of 00:00: [place] [facility] Chest pain Chest pain Disease Active U nivers 2-11 ity of 00:00: [place] [facility] Postmenopa Postmenopa Disease Active U nivers usal usal 4-20 ity of bleeding bleeding 00:00: [place] [facility] Obesity Obesity Disease Active Univers (BMI (BMI 4-20 ity of 30-39.9) 30-39.9) 00:00: [place] [facility] Hematoma Hematoma Disease Active Metho [...] 2019-02-19 Memoria ia brett 22:28:00 l Problem [place] 02/19/[address] [facility] Elevated Elevated Condition 2019-02-19 Memoria brain brain 22:28:00 l natriureti natriureti He rmann c peptide c peptide (BNP) (BNP) level level Condition 02/19/[address] [facility] Episode of Episode Condition 2019-02-19 Memoria generalize of 22:28:00 l d weakness generalize He rmann d weakness Condition 02/19/[address] [facility] Hyperkalem Hyperkale Condition 2019-02-19 Memoria ia brett 22:28:00 l Condition [place] 02/19/2019 [facility] [place] Hypertensi Hypertens Condition 2019-02-19 Memoria on with ion with 22:28:00 l goal to be goal to be He rmann determined determined Condition 02/19/2019 [facility] Acute Acute Condition 2019-02-19 Me moria respirator respirator 22:28:00 l y disease y disease Herm ivelisse Condition 02/19/2019 [facility] End-stage End-stage Condition 2019-02-19 Memoria renal renal 22:28:00 l disease on disease on He rmann hemodialys hemodialys is is Condition 02/19/[address] 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 End-stage End-stage Problem 2019-02-19 Memoria renal renal 22:28:00 l disease on disease on He rmann hemodialys hemodialys is is Problem 9 [facility] Upper Upper Problem 2019-02-19 Dickson kulwinder respirator respirator 22:28:00 l y y Juanito infection infection Problem 02/19/2019 [facility] Elevated Elevated Problem 2019-02-19 Memoria troponin troponin 22:28:00 l level level [place] Problem 02/19/[address] [facility] [...] Active Univers ALLERGIE Class ity of S [facility] NO KNOWN Allergy Active SLEH ALLERGIE S Family History Family Member Diagnosis Comments Start Date Stop Date Source Natural brother [facility] Natural father Diabetes [facility] Natural mother Diabetes [facility] Natural sister [facility] Social History Social Habit Start Date Stop Date Quantity Comments Source History SDOH [facility] Alcohol Std Drinks History SDDC [facility] Alcohol Binge History [facility] Alcohol Comment Exposure to 2021-09-19 2021-09-29 Not sure [facility]-CoV-2 00:00:00 14:42:00 [facility] (event) [place] Tobacco use and 2020-07-24 2020-07-[address] [facility] Felicita kes exposure 00:00:00 00:00:00 Medical [place] Social History 2019-02-19 2019-02-19 [facility] [place] [facility] 22:28:00 22:28:00 Alcohol intake 2018-10-27 2018-10-27 [facility] 00:00:00 00:00:00 non-drinker of alcohol (finding) History SDOH 2018-10-26 2018-10-26 1 [facility] Frequency 00:00:00 00:00:00 [birth year] Univers y of 00:00:00 00:00:00 [facility] Smoking Status Start Date Stop Date Source Unknown if ever smoked [facility] Never smoked tobacco [facility] Medications Ordered Filled Start Stop Current Ordering Indication Dosage Frequency Signature Comments Components Source Medication Medication Date Date Medication? Clinician (SIG) Name Name atorvastati Yes 40mg Take 40 mg Univers n 40 mg 6-28 by mouth ity of tablet 15:14: at [place] [address] bedtime. Medical Branch atorvastati Yes 40mg Take 40 mg Univers n 40 mg 6-28 by mouth ity of tablet 15:14: at [place] [address] bedtime. Medical Branch atorvastati Yes 40mg Take 40 mg Univers n 40 mg 6-28 by mouth ity of tablet 15:14: at [place] [address] bedtime. Medical Branch clopidogreL Yes [id number] 75mg Take 1 Univers 75 mg 6-28 tablet by ity of tablet 00:00: mouth [place] 00 daily. Medical Branch clopidogreL 0 Yes [id number] 75mg Take 1 Univers 75 mg 6-28 tablet by ity of tablet 00:00: mouth [place] 00 daily. Medical Branch clopidogreL 0 Yes [id number] 75mg Take 1 Univers 75 mg 6-28 tablet by ity of tablet 00:00: mouth [place] 00 daily. Medical Branch CARVEDILOL 0 Yes 12.5mg Take 12.5 Univers ORAL 6-03 mg by ity of 10:47: mouth 2 [place] 33 (two) Medical times Branch daily. NIFEdipine 0 Yes 10mg Take 10 mg U nivers 10 mg 6-03 by mouth 3 ity of capsule 10:47: (three) [place] 33 times Medical daily. Branch levETIRAcet 0 [...] mouth 2 [place] 33 (two) Medical times [place] daily. NIFEdipine 0 Yes 10mg Take 10 [...] 33 (two) Medical times Branch daily. NIFEdipine 2021-0 Yes 10mg Take 10 mg U nivers 10 mg 6-03 by mouth 3 ity of capsule 10:47: (three) [place] 33 times Medical daily. Branch levETIRAcet 0 Yes 500mg Take 500 U nivers am (KEPPRA) 6-03 mg by ity of 500 mg 10:47: mouth at [place] tablet 33 bedtime. Medical Branch levETIRAcet 2021-0 Yes 250mg Take 250 U nivers am (KEPPRA) 6-03 mg by ity of 250 mg 10:47: mouth [place] tablet 33 every Medical Tuesday, Branch Tuesday and Tuesday. After dialysis mirtazapine 2021-0 Yes [id number] 15mg Take 1 Univers (REMERON) 6-03 tablet by ity o f 15 mg 00:00: mouth at [place] tablet 00 bedtime. Medical Branch traZODone 2021-0 Yes [id number] 50mg Take 1 Un kecia 50 mg 6-03 tablet by ity of tablet 00:00: mouth at [place] 00 bedtime. Medical Branch mirtazapine 2021-0 Yes [id number] 15mg Take 1 Univers (REMERON) 6-03 tablet by ity o f 15 mg 00:00: mouth at [place] tablet 00 bedtime. Medical Branch traZODone 2021-0 Yes [id number] 50mg Take 1 Un kecia 50 mg 6-03 tablet by ity of tablet 00:00: mouth at [place] 00 bedtime. Medical Branch mirtazapine 2021-0 Yes [id number] 15mg Take 1 Univers (REMERON) 6-03 tablet by ity o f 15 mg 00:00: mouth at [place] tablet 00 bedtime. Medical Branch traZODone 2021-0 Yes [id number] 50mg Take 1 Un kecia 50 mg 6-03 tablet by ity of tablet 00:00: mouth at [place] 00 bedtime. Medical Branch amoxicillin 2021-0 Yes 500mg Take 500 U nivers 500 mg 5-24 mg by ity of capsule 00:00: mouth. [place] 00 Medical Branch amoxicillin 2021-0 Yes 500mg Take 500 U nivers 500 mg 5-24 mg by ity of capsule 00:00: mouth. [place] 00 Medical Branch amoxicillin 2022-0 Yes 500mg Take 500 U nivers 500 mg 5-24 mg by ity of capsule 00:00: mouth. [facility] Branch hydrALAZINE Yes 50mg Take 50 mg Univers 50 mg 408 by mouth. ity of tablet 00:00: Medical Branch hydrALAZINE Yes 50mg Take 50 mg Univers 50 mg 4-08 by mouth. ity of tablet 00:00: Medical Branch hydrALAZINE Yes 50mg Take 50 mg Univers 50 mg 408 by mouth. ity of tablet 00:00: [place] [facility] Branch levETIRAcet 2021- No 250mg Take [address] am (KEPPRA) 07-06- tablet [facility] 250 MG 00:00: 23:59 (250 mg Medical tablet 00 :00 total) by Center mouth 3 (three) times a week after dialysis I for 60 days. levETIRAcet 2021- No [...] minerals 14:35: mouth Medical tablet 35 daily. [place] sucroferric Yes 500mg Q.[id number] Take [address] oxyhydroxid 4-02 [id number] mg by L ukes e 500 mg 14:35: 3D mouth 3 Medica l Chew 35 (three) Center times daily. multivitami Yes 1{tbl} QD Take [address] n with 4-02 tablet by [facility] minerals 14:35: mouth Medical tablet 35 daily. [place] sucroferric Yes 500mg Q.[id number] Take [address] oxyhydroxid 4- [id number] mg by L ukes e 500 mg 14:35: 3D mouth 3 Medica l Chew 35 (three) Center times daily. multivitami Yes 1{tbl} QD Take [address] n with -02 tablet by [facility] minerals 14:35: mouth Medical tablet 35 daily. [place] sucroferric Yes 500mg Q.[id number] Take [address] oxyhydroxid 4- [id number] mg by L ukes e 500 mg [...] 35 :00 Center tablet hydrALAZINE No 50mg Q.[id number] Take [address] [facility] (APRESOLINE 07-04 [id number] by mouth 3 [facility] ) 50 MG 11:07: 00:00 3D (three) Medica l tablet 35 :00 times Center daily. lisinopriL 2021- 5mg QD Take [address] (PRINIVIL,Z 07-04 by mouth Ned es ESTRIL) 5 11:07: 00:00 daily. Medic al MG tablet 35 :00 [place] aspirin 81 No 81mg QD Take [address] MG EC 07-04 by mouth [facility] tablet 11:07: 00:00 daily. Medical 35 :00 [place] carvediloL No 12.5mg Take 12.[address] (COREG) 07-0402 mg by [facility] 12.5 MG 11:07: 00:00 mouth 2 Medica l tablet 35 :00 (two) Center times daily with breakfast and dinner. atorvastati No 40mg QD Take [address] [facility] [facility] n (LIPITOR) 07-04 by mouth Ned es 40 MG 11:07: 00:00 daily. Medical tablet 35 :00 Center isosorbide 30mg QD Take [address] [...] :00 Center tablet hydrALAZINE 2021- No 50mg Q.[id number] Take [address] [facility] [facility] (APRESOLINE 07-04 [id number] by mouth 3 [facility] ) 50 MG [...] :00 Center tablet hydrALAZINE 2021- No 50mg Q.[id number] Take [address] (APRESOLINE 07-04 [id number] by mouth 3 [facility] ) 50 MG [...] 8 (eight) hours for 60 days. epoetin 2022-0 2022- No anemia in [address]U Inject 2 CHI [...] hr 59 Center tablet hydrALAZINE Yes 50mg Q.[id number] Take [address] (APRESOLINE 4-01 [id number] by mouth 3 [facility] ) 50 MG 13:18: 3D (three) Medical tablet 59 times Center daily. multivitami 0 Yes 1{tbl} QD Take [address] n with 4-01 tablet by [facility] minerals 13:18: mouth Medical tablet 59 daily. Center lisinopriL Yes 5mg QD Take [address] (PRINIVIL,Z 4-01 by mouth Luke s ESTRIL) 5 13:18: daily. Medica l MG tablet 59 Center sucroferric Yes 500mg Q.[id number] Take [address] oxyhydroxid 4- [id number] mg by L ukes e 500 mg [...] hr 15 Center tablet hydrALAZINE Yes 50mg Q.[id number] Take [address] [facility] (APRESOLINE 3-30 [id number] by mouth 3 [facility] ) 50 MG [...] tablet 15 Center sucroferric 0 Yes 500mg Q.[id number] Take [address] oxyhydroxid 3-30 [id number] mg by L ukes e 500 mg [...] 15 Center tablet hydrALAZINE 0 Yes 50mg Q.[id number] Take [address] [facility] (APRESOLINE 3-30 [id number] by mouth 3 [facility] ) 50 MG 12:54: 3D (three) Medical tablet 15 times Center daily. multivitami 0 Yes 1{tbl} QD Take [address] n with 3-30 tablet by [facility] minerals 12:54: mouth Medical tablet 15 daily. [place] lisinopriL 0 Yes 5mg QD Take [address] (PRINIVIL,Z 3-30 by mouth Luke s ESTRIL) 5 12:54: daily. Medica l MG tablet 15 Center sucroferric 0 Yes 500mg Q.[id number] Take [address] oxyhydroxid 3-30 [id number] mg by L ukes e 500 mg [...] 18 Center tablet hydrALAZINE 0 Yes 50mg Q.[id number] Take [address] [facility] [facility] (APRESOLINE 3-30 [id number] by mouth 3 [facility] ) 50 MG 08:40: 3D (three) Medical tablet 18 times Center daily. multivitami 0 Yes 1{tbl} QD Take [address] n with 3-30 tablet by [facility] minerals 08:40: mouth Medical tablet 18 daily. [place] lisinopriL 0 Yes 5mg QD Take [address] (PRINIVIL,Z 3-30 by mouth Luke s ESTRIL) 5 08:40: daily. Medica l MG tablet 18 Center sucroferric Yes 500mg Q.[id number] Take [address] oxyhydroxid 3-30 [id number] mg by L ukes e 500 mg 08:40: 3D mouth 3 Medica l Chew 18 (three) Center times daily. atorvastati 0 Yes 40mg QD Take [address] [facility] n (LIPITOR) 3-28 by mouth Luke s 40 MG 14:25: daily. Medical tablet 01 Center isosorbide 2021-0 Yes 30mg QD Take [address] mononitrate 3-28 by mouth Luke s (IMDUR) 30 14:25: daily. Medic al MG 24 hr 01 Center tablet clopidogreL 2021-0 Yes 75mg QD Take [address] [facility] (PLAVIX) 75 3-28 by mouth Luke s mg tablet 14:25: daily. Medica l 01 Center NIFEdipine 2021-0 Yes 60mg QD Take [address] (PROCARDIA- 3-28 by mouth Luke s XL) 60 MG 14:25: daily. Medica l (OSM) 24 hr 01 Center tablet hydrALAZINE Yes 50mg Q.[id number] Take [address] [facility] (APRESOLINE 3-28 [id number] by mouth 3 [facility] ) 50 MG [...] MG tablet 01 Center sucroferric Yes 500mg Q.[id number] Take [address] oxyhydroxid 3-28 [id number] mg by L ukes e 500 mg [...] hr 22 Center tablet hydrALAZINE Yes 50mg Q.[id number] Take [address] [facility] [address] (APRESOLINE 3-28 [id number] by mouth 3 [facility] ) 50 MG [...] tablet 22 Center sucroferric 0 Yes 500mg Q.[id number] Take [address] oxyhydroxid 3-28 [id number] mg by L ukes e 500 mg [...] 49 Center tablet hydrALAZINE 0 Yes 50mg Q.[id number] Take [address] [facility] (APRESOLINE 3-25 [id number] by mouth 3 [facility] ) 50 MG [...] tablet 49 Center sucroferric 0 Yes 500mg Q.[id number] Take [address] oxyhydroxid 3-25 [id number] mg by L ukes e 500 mg [...] 15 Center tablet hydrALAZINE 2021-0 Yes 50mg Q.[id number] Take [address] [facility] (APRESOLINE 3-20 [id number] by mouth 3 [facility] ) 50 MG [...] tablet 15 Center sucroferric 0 Yes 500mg Q.[id number] Take [address] oxyhydroxid 3-20 [id number] mg by L ukes e 500 mg 18:09: 3D mouth 3 Medica l Chew 15 (three) Center times daily. atorvastati 0 Yes 40mg QD Take [address] [facility] n (LIPITOR) 3-20 by mouth Luke s 40 MG 18:09: daily. Medical tablet 15 Center isosorbide 2021-0 Yes 30mg QD Take 30 [...] hr 15 Center tablet hydrALAZINE Yes 50mg Q.[id number] Take [address] [address] (APRESOLINE 3-20 [id number] by mouth 3 [facility] ) 50 MG 18:09: 3D (three) Medical tablet 15 times Center daily. multivitami Yes 1{tbl} QD Take [address] n with 3-20 tablet by [facility] minerals 18:09: mouth Medical tablet 15 daily. [place] lisinopriL Yes 5mg QD Take [address] (PRINIVIL,Z 3-20 by mouth Luke s ESTRIL) 5 18:09: daily. Medica l MG tablet 15 [place] sucroferric Yes 500mg Q.[id number] Take [address] oxyhydroxid 3-20 [id number] mg by L ukes e 500 mg 18:09: 3D mouth 3 Medica l Chew 15 (three) Center times daily. atorvastati Yes 40mg QD Take [address] [facility] n (LIPITOR) 3-20 by mouth Luke s 40 MG 18:09: daily. Medical tablet 15 [place] aspirin 81 0 Yes 81mg QD Take [address] MG EC 3-07 by mouth [facility]ukes tablet 04:45: daily. [address] carvediloL Yes 12.5mg Take 12.[address] (COREG) 3-07 mg by [facility] 12.5 MG 04:45: mouth 2 Medical tablet 04 (two) Center times daily with breakfast and dinner. aspirin 81 0 Yes 81mg QD Take [address] MG EC 3-07 by mouth [facility]ukes tablet 04:45: daily. [address] carvediloL Yes 12.5mg Take 12.[address] (COREG) 3-07 mg by [facility]ukes 12.5 MG 04:45: mouth 2 Medical tablet 04 (two) Center times daily with breakfast and dinner. aspirin 81 0 Yes 81mg QD Take [address] MG EC 3-07 by mouth [facility]ukes tablet 04:45: daily. [address] carvediloL Yes 12.5mg Take 12.[address] (COREG) 3-07 mg by [facility] 12.5 MG 04:45: mouth 2 Medical tablet 04 (two) Center times daily with breakfast and dinner. aspirin 81 0 Yes 81mg QD Take [address] MG EC 3-07 by mouth [facility] tablet 04:45: daily. [address] carvediloL 0 Yes 12.5mg Take 12.[address] (COREG) 3-07 mg by [facility]ukes 12.5 MG 04:45: mouth 2 Medical tablet 04 (two) Center times daily with breakfast and dinner. aspirin 81 0 Yes 81mg QD Take [address] MG EC 3-07 by mouth [facility]ukes tablet 04:45: daily. [address] carvediloL Yes 12.5mg Take 12.[address] (COREG) 3-07 mg by [facility]ukes 12.5 MG 04:45: mouth 2 Medical tablet 04 (two) Center times daily with breakfast and dinner. aspirin 81 0 Yes 81mg QD Take [address] MG EC 3-07 by mouth [facility]ukes tablet 04:45: daily. [address] carvediloL Yes 12.5mg Take 12.[address] (COREG) 3-07 mg by [facility] 12.5 MG 04:45: mouth 2 Medical tablet 04 (two) Center times daily with breakfast and dinner. aspirin 81 0 Yes 81mg QD Take [address] MG EC 3-07 by mouth [facility] tablet 04:45: daily. [address] carvediloL 0 Yes 12.5mg Take 12.[address] (COREG) 3-07 mg by [facility]ukes 12.5 MG 04:45: mouth 2 Medical tablet 04 (two) Center times daily with breakfast and dinner. aspirin 81 2021-0 Yes 81mg QD Take [address] MG EC 3-07 by mouth [facility] tablet 04:45: daily. [address] carvediloL 0 Yes 12.5mg Take 12.5 [...] breakfast and dinner. aspirin 81 2021- No [id number] 81mg Take 1 Univers mg chewable 05-23 tablet by it y of tablet 00:00: 04:59 mouth [place] 00 :00 daily for Medical 30 days. Branch clopidogreL 2021- No [id number] 75mg Take 1 Univers 75 mg 05-23 tablet by ity of tablet 00:00: 04:59 mouth [place] 00 :00 daily for Medical 30 days. Branch isosorbide 2021- No [id number] 30mg Take 1 Univers mononitrate 05-23 tablet by it y of 30 mg 24 hr 00:00: 04:59 [place] tablet 00 :00 daily for Medical 30 days. Branch lisinopriL 2021- No [id number] 5mg Take 1 Univers 5 mg tablet 05-23 tablet by it y of 00:00: 04:59 mouth [place] 00 :00 daily for Medical 30 days. Branch vitamin b 2021- No [id number] 1{tbl} Take 1 [facility] complex-vit 05-23 tablet by it y of miller 00:00: 04:59 mouth [place] c-folic 00 :00 daily for Medical acid 0.8 mg 30 days. Bran ch tablet aspirin 81 2021- No [id number] 81mg Take 1 [facility] mg chewable 05-23 tablet by it y of tablet 00:00: 04:59 mouth [place] 00 :00 daily for Medical 30 days. Branch clopidogreL 2021- No [id number] 75mg Take 1 Univers 75 mg 05-23 tablet by ity of tablet 00:00: 04:59 mouth [place] 00 :00 daily for Medical 30 days. Branch isosorbide 2021- No [id number] 30mg Take 1 [facility] mononitrate 05-23 tablet by it y of 30 mg 24 hr 00:00: 04:59 [place] tablet 00 :00 daily for Medical 30 days. Branch lisinopriL 2021- No [id number] 5mg Take 1 Univers 5 mg tablet 05-23 tablet by it y of 00:00: 04:59 mouth [place] 00 :00 daily for Medical 30 days. Branch vitamin b 2021- No [id number] 1{tbl} Take 1 [facility] complex-vit 05-23 tablet by it y of miller 00:00: 04:59 mouth [place] c-folic 00 :00 daily for Medical acid 0.8 mg 30 days. Bran ch tablet aspirin 81 2021- No [id number] 81mg Take 1 [facility] mg chewable 05-23 tablet by it y of tablet 00:00: 04:59 mouth [place] 00 :00 daily for Medical 30 days. Branch clopidogreL 2021- No [id number] 75mg Take 1 [facility] 75 mg 05-23 tablet by ity of tablet 00:00: 04:59 mouth [place] 00 :00 daily for Medical 30 days. Branch isosorbide 2021- No [id number] 30mg Take 1 [facility] mononitrate 05-23 tablet by it y of 30 mg 24 hr 00:00: 04:59 [place] tablet 00 :00 daily for Medical 30 days. Branch lisinopriL 2021- No [id number] 5mg Take 1 Univers 5 mg tablet 05-23 tablet by it y of 00:00: 04:59 mouth [place] 00 :00 daily for Medical 30 days. Branch vitamin b 2021- No [id number] 1{tbl} Take 1 [facility] complex-vit 05-23 tablet by it y of miller 00:00: 04:59 mouth [place] c-folic 00 :00 daily for Medical acid 0.8 mg 30 days. Bran ch tablet hydralazine Yes Take by Uni vers HCl 2-18 mouth. ity of (HYDRALAZIN 21:15: [place] E ORAL) 58 Medical Branch sucroferric Yes Take by Uni vers oxyhydroxid 2-18 mouth. ity of e (VELPHORO 21:15: [place] ORAL) 58 Medical Branch hydralazine 0 Yes Take by Uni vers HCl 2-18 mouth. ity of (HYDRALAZIN 21:15: [place] E ORAL) 58 Medical Branch sucroferric Yes Take by Uni vers oxyhydroxid 2-18 mouth. ity of e (VELPHORO 21:15: [place] ORAL) 58 Medical Branch hydralazine Yes Take by Uni vers HCl 2-18 mouth. ity of (HYDRALAZIN 21:15: [place] E ORAL) 58 Medical Branch sucroferric Yes Take by Uni vers oxyhydroxid 2-18 mouth. ity of e (VELPHORO 21:15: [place] ORAL) 58 Medical Branch NIFEDIPINE 2021- No Take by Uni vers ORAL 2-18 02-18 mouth. ity of 17:12: 00:00 [place] 42 :00 Medical Branch aspirin 81 2021- No 81mg Take 81 mg Univers mg chewable 18 05-22 by mouth ity of tablet 17:12: 00:00 daily. [place] 42 :00 Medical Branch nitroglycer [id number] 1 Univers in 0.4 mg 2-18 tablet ity of sublingual 00:00: under the [place] tablet 00 tongue Medical every 5 Branch (five) minutes as needed for Chest pain. nitroglycer Yes [id number] .4mg Place 1 Univers in 0.4 mg 2-18 tablet ity of sublingual 00:00: under the [place] tablet 00 tongue Medical every 5 Branch (five) minutes as needed for Chest pain. nitroglycer Yes [id number] .4mg Place 1 Univers in 0.4 mg 2-18 tablet ity of sublingual 00:00: under the [place] tablet 00 tongue Medical every 5 Branch (five) minutes as needed for Chest pain. atorvastati 2021- No [id number] 40mg Take 1 Univers n 40 mg 2-18 06-22 tablet by ity of tablet 00:00: 04:59 mouth at [place] 00 :00 bedtime Medical for 30 Branch days. carvediloL 2021- No [id number] 6.25mg Take 1 Univers 6.25 mg 2-18 06-22 tablet by ity of tablet 00:00: 04:59 mouth 2 [place] 00 :00 [facility] Medical times Branch daily with meals for 30 days. NIFEdipine 2021- No [id number] 60mg Take 1 Univers ER 60 mg 05-22- tablet by ity o f tablet 00:00: 04:59 mouth 2 [place] 00 :00 (two) Medical times Branch daily for 30 days. atorvastati 2021- No [id number] 40mg Take 1 Univers n 40 mg 05-22- tablet by ity of tablet 00:00: 04:59 mouth at [place] 00 :00 bedtime Medical for 30 Branch days. carvediloL 2021- No [id number] 6.25mg Take 1 Univers 6.25 mg 05-22 tablet by ity of tablet 00:00: 04:59 mouth 2 [place] 00 :00 [facility] Medical times Branch daily with meals for 30 days. NIFEdipine 2021- No [id number] 60mg Take 1 Univers ER 60 mg 05-22- tablet by ity o f tablet 00:00: 04:59 mouth 2 [place] 00 :00 (two) Medical times Branch daily for 30 days. atorvastati 2021- No [id number] 40mg Take 1 Univers n 40 mg 05-22 tablet by ity of tablet 00:00: 04:59 mouth at [place] 00 :00 bedtime Medical for 30 Branch days. carvediloL 2021- No [id number] 6.25mg Take 1 Univers 6.25 mg 05-22 tablet by ity of tablet 00:00: 04:59 mouth 2 [place] 00 :00 (two) Medical times Branch daily with meals for 30 days. NIFEdipine 2021- No [id number] 60mg Take 1 Univers ER 60 mg 05-22- tablet by ity o f tablet 00:00: 04:59 mouth 2 [place] 00 :00 (two) Medical times Branch daily for 30 days. clopidogreL Yes 75mg 75 mg, Univ ers (PLAVIX) 05-21 Oral, ity of tablet 75 15:00: DAILY, [place] mg 00 First dose Medical (after Branch last modificati on) on 05/21/22 at 0900, Until Discontinu ed, Routine morpHINE 2021- No 2mg 2 mg, Slow Un kecia injection 2 05-21 IV Push, ity of mg 13:30: 12:29 ONCE, 1 [place] 00 :00 dose, On Medical [facility] 05/21/21 at 0730, Routine HYDROcodone 2021- No 1{tbl} 1 tablet, Univers -acetaminop 05-21 Oral, ity of hen (NORCO 01:00: 00:17 ONCE, 1 [facility] as 5) 5-325 mg 00 :00 dose, On Medi yoel tablet 1 Tue Dexter tablet 05/20/21 at 1900, Routine isosorbide Yes 30mg 30 mg, Unive rs mononitrate 2-16 Oral, ity of (IMDUR) 24 15:00: DAILY, [place] hr tablet 00 First dose Medi yoel 30 mg on [facility] 05/20/21 at 0900, Until Discontinu ed, Routine vitamin b Yes [id number] 1{tbl} 1 tablet, Univers complex-vit -16 Oral, ity of miller 15:00: DAILY, [place] c-folic 00 First dose Medica l acid on Tue Dexter (NEPHRO-VIT 05/20/21 at E) 0.8 mg 0900, tablet 1 Until tablet Discontinu ed, Routine clopidogreL 2021- No 75mg 75 mg, Uni vers (PLAVIX) 05-20-16 Oral, ity of tablet 75 15:00: 15:04 DAILY, [place] mg 00 :38 First dose Medical on [facility] 05/20/21 at 0900, Until Discontinu ed, Routine atorvastati Yes [id number] 40mg 40 mg, Univers n (LIPITOR) 2-16 Oral, QHS, it y of tablet 40 03:00: First dose [place] 00 on [facility] 05/19/21 at Branch 2100, Until Discontinu ed, Routine NIFEdipine Yes [id number] 60mg 60 mg, U nivers ER tablet 2-16 Oral, BID, ity of 60 mg 02:00: First dose [place] 00 (after Medical last Branch modificati on) [facility] 05/19[facility]21 at 2000, Until Discontinu ed, Routine lisinopriL 2021-0 Yes [id number] 5mg 5 mg, Un kecia (PRINIVIL,Z 2-15 Oral, ity of ESTRIL) 20:45: DAILY, [place] tablet 5 mg 00 First dose Me dical on e Branch 05/19/21 at 1445, Until Discontinu ed, Routine traMADoL 0 Yes 50mg 50 mg, Univers (ULTRAM) 2-12 Oral, ity of tablet 50 21:59: Q6HPRN, [place] mg 37 Starting Medical on [facility] Branch 05/16/21 at 1559, Until Discontinu ed, Routine, Pain (scale 4-6) aspirin 0 Yes 81mg 81 mg, Univers chewable 2-12 Oral, ity of tablet 81 15:00: DAILY, [place] mg 00 First dose Medical on [facility] Branch 05/16/21 at 0900, Until Discontinu ed, Routine NIFEdipine 2021- No 60mg 60 mg, Univ ers ER tablet 12 02-15 Oral, ity of 60 mg 15:00: 20:33 DAILY, [place] 00 :49 First dose Medical on [facility] 05/16/21 at 0900, Until Discontinu ed, Routine Sliding 0 Yes Subcutaneo Univ ers Scale 2-12 us, AC, ity of Insulin-Reg 13:30: First dose [place] ular + Fsbg 00 on [facility] Medica l Testing 05/16/21 at Branch [...] at 2200, Until Discontinu ed, Routine carvediloL Yes 6.25mg 6.25 mg, U nivers (COREG) 2-12 Oral, BID ity of tablet 6.25 01:00: MEALS, [place] mg 00 First dose Medical on Fri Branch 05/15/21 at 1900, Until Discontinu ed, Routine
receiving team member approving Restricted medication : NEIL THOMAS aspirin 0 2021- No 325mg 325 mg, Unive rs tablet 325 12 02-12 Oral, ity of mg 01:00: 01:57 ONCE, 1 [place] 00 :00 dose, On Medical Fri Branch [...] IV Push, ity of (PF)) 00:56: Q6HPRN, [place] injection 4 53 Starting Medi yoel mg on Fri Branch 05/15/21 at 1856, Until Discontinu ed, Routine, Nausea and Vomiting (N/V) acetaminoph 2021-0 Yes 650mg 650 mg, Un kecia en 2-12 Oral, ity of (TYLENOL) 00:56: Q6HPRN, [place] [...] 05/15/21 at 1730, STAT iopamidol 2021- No [id number] 100mL 100 mL, Univers (ISOVUE 05-15 Intravenou ity o f 370-500 mL) 22:00: 22:00 s, ONCE, 1 [place] injection 00 :00 dose, On Medica l 100 mL Fri Branch 05/15/21 at 1600, Routine aspirin 81 Yes 81mg QD Take [address] MG EC 5-27 by [facility] tablet 15:07: daily. [address] carvediloL Yes 12.5mg Take 12.[address] (COREG) 5-27 mg by [facility] 12.5 MG 15:07: mouth 2 Medical tablet 20 (two) Center times daily with breakfast and dinner. aspirin 81 Yes 81mg QD Take [address] MG EC 5-27 by mouth [facility] tablet 15:07: daily. [address] carvediloL Yes 12.5mg Take 12.[address] (COREG) 5-27 mg by [facility] 12.5 MG 15:07: mouth 2 Medical tablet 20 (two) Center times daily with breakfast and dinner. Albuterol 2018-04 Yes [facility] Sulfate 1-17 l 19:50: [place] 00 Hydralazine 2018-04 Yes [facility] a 1-17 l 19:50: [place] 00 Aspirin 2018-04 Yes [facility] Chewable 1-17 [...] a e 1-17 l 19:15: ergocalcife Yes [id number] Q7D Take Meth ale rol 7-25 50,000 [...] 24 hr 42 l tablet ergocalcife Yes [id number] Q7D Take Meth ale rol 7-25 50,000 [...] hr 42 l tablet ergocalcife 2019-0 Yes [id number] Q7D Take Meth ale rol 7-25 50,000 [...] hr 42 l tablet ergocalcife 2019-0 Yes [id number] Q7D Take Meth ale rol 7-25 50,000 [...] hr 42 l tablet ergocalcife 2019-0 Yes [id number] Q7D Take Meth ale rol 7-25 50,000 st (VITAMIN 15:19: Units by Hospi ta D2) 50,000 42 mouth once l unit a week. capsule multivitami 2019-0 Yes 1{tbl} QD Take 1 Me thodi n 7-[address] (DAILY-LARON 15:19: mouth Hospi ta ORAL) 42 daily. l ergocalcife 2019-0 Yes [id number] Q7D Take Meth ale rol 7-25 50,000 [...] 15:19: daily. Hospita tablet 42 l ergocalcife 20190 Yes [id number] Q7D Take Meth ale rol 7-25 50,000 [...] hr 42 l tablet ergocalcife 2019-0 Yes [id number] Q7D Take Meth ale rol 7-25 50,000 [...] hr 42 l tablet ergocalcife 2019-0 Yes [id number] Q7D Take Meth ale rol 7-25 50,000 [...] hr 42 l tablet ergocalcife 2019-0 Yes [id number] Q7D Take Meth ale rol 7-25 50,000 [...] hr 42 l tablet ergocalcife 2019-0 Yes [id number] Q7D Take Meth ale rol 7-25 50,000 [...] hr 42 l tablet ergocalcife 2019-0 Yes [id number] Q7D Take Meth ale rol 7-25 50,000 [...] hr 42 l tablet ergocalcife 2019-0 Yes [id number] Q7D Take Meth ale rol 7-25 50,000 [...] 15:19: daily. Hospita tablet 42 l pantoprazol 2019 Yes 40mg QD Take 40 mg Methodi e 7-[address] (PROTONIX) 15:19: daily. Hospi ta 40 MG EC 42 l tablet isosorbide Yes 30mg QD Take 30 mg M ethodi mononitrate 7-[address] (IMDUR) 30 15:19: daily. Hospi ta MG 24 hr 42 l tablet metoprolol Yes TK 1 T [...] tablet 00:00: Hospit a 00 l metoprolol 2018- Yes TK 1 T PO Me thodi [...] tablet 00:00: Hospit a 00 l metOLazone 2018-0 Yes TK 1 T PO [...] tablet furosemide 2019-0 Yes Take by Meth ael (LASIX) 40 7-[address] mg tablet [...] a n Calcium 7-09 l 10:23: Lisinopril 2019-0 Yes Memoria 7-09 l 10:23: Doxazosin 2018-0 Yes TWICE [facility] 7-09 DAILY l 00:00: Folic 2018-0 Yes DAILY [facility] Acid/Vit B 7-09 l Complex And 00:00: [place] [facility] Hydralazine 2018-0 Yes Q8H Memori a Hcl [...] Dose 2021-02-02 Completed Unive rsity of 00:00:00 [facility] Influenza High Dose 2021-02-02 Completed Unive rsity of 00:00:00 [facility] Influenza High Dose 2021-02-02 Completed Unive rsity of 00:00:00 [facility] SARS-COV-2 COVID-19 2020-07-30 Completed Unive rsity of PFIZER VACCINE 00:00:00 [facility] SARS-COV-2 COVID-19 2020-07-30 Completed Unive rsity of PFIZER VACCINE 00:00:00 [facility] SARS-COV-2 COVID-19 2020-07-30 Completed Unive rsity of PFIZER VACCINE 00:00:00 [facility] SARS-COV-2 COVID-19 2020-07-11 Completed Unive rsity of PFIZER VACCINE 00:00:00 [facility] SARS-COV-2 COVID-19 2020-07-11 Completed Unive rsity of PFIZER VACCINE 00:00:00 [facility] SARS-COV-2 COVID-19 2020-07-11 Completed Unive rsity of PFIZER VACCINE 00:00:00 [facility] PPD (TB) 2018-03-20 Completed University of 00:00:00 [facility] PPD (TB) 2018-03-20 Completed University of 00:00:00 [facility] PPD (TB) 2018-03-20 Completed University of 00:00:00 [facility] Influenza Virus 2018-01-20 Completed Universit y of Vaccine - Whole 00:00:00 [facility] Influenza Virus 2018-01-20 Completed Universit y of Vaccine - Whole 00:00:00 [facility] Influenza Virus 2018-01-20 Completed Universit y of Vaccine - Whole 00:00:00 [facility] Pneumococcal 2014-08-02 Completed University o f Polysaccharide, 00:00:00 [facility] PPSV23 (PNEUMOVAX) Branch Pneumococcal 2014-08-02 Completed University o f Polysaccharide, 00:00:00 [facility] PPSV23 (PNEUMOVAX) Branch Pneumococcal 2014-08-02 Completed University o f Polysaccharide, 00:00:00 [facility] PPSV23 (PNEUMOVAX) Dexter Vital Signs Vital Name Observation Time Observation [...] 64.7 kg WEIGHT 2021-06-08 18:45:00 64.7 kg WEIGHT 2021-06-08 04:44:00 67.677 kg HEIGHT 2021-06-08 04:44:00 160 cm WEIGHT 2021-07-03 13:00:00 60.4 kg WEIGHT 2021-07-02 [...] 64.7 kg WEIGHT 2021-06-08 18:45:00 64.7 kg WEIGHT 2021-06-08 04:44:00 67.677 kg HEIGHT 2021-06-08 04:44:00 160 cm Systolic blood 2021-05-23 01:40:00 126 mm[Hg] Univer sity of pressure [facility] Diastolic blood 2021-05-23 01:40:00 46 mm[Hg] Unive rsity of [facility] Heart rate 2021-05-23 01:40:00 62 /min [facility] Body temperature 2021-05-23 01:40:00 35.67 Priya Univ ersity [facility] Respiratory rate 2021-05-23 01:40:00 16 /min [facility] Body weight 2021-05-23 01:40:[address] [facility] BMI 2021-05-23 01:40:00 26.28 kg/m2 [facility] Oxygen saturation in 2021-05-22 17:16:00 93 /min University Arterial blood by [facility] Pulse oximetry Branch Body height 2021-05-19 19:34:[address] [facility] Systolic blood 2021-07-04 08:10:00 149 mm[Hg] [facility] Diastolic blood 2021-07-04 08:10:00 65 mm[Hg] [facility] Heart rate 2021-07-04 08:10:00 71 /min [facility] Body temperature 2021-07-04 08:10:00 36.22 Priya [facility] Respiratory rate 2021-07-04 08:10:00 18 /min [facility] Oxygen saturation in 2021-07-04 08:10:00 93 /min [facility] Arterial blood by Medical Ce nter Pulse oximetry Systolic blood 2021-07-03 14:23:00 123 mm[Hg] [facility] Diastolic blood 2021-07-03 14:23:00 60 mm[Hg] [facility] Heart rate 2021-07-03 14:23:00 70 /min [facility] Body temperature 2021-07-03 14:23:00 35.94 Priya [facility] Respiratory rate 2021-07-03 14:23:00 18 /min [facility] Oxygen saturation in 2021-07-03 14:23:00 97 /min [facility] Arterial blood by Medical Ce nter Pulse oximetry Body weight 2021-07-03 13:00:00 60.4 kg [facility] BMI 2021-07-03 13:00:00 23.59 kg/m2 [facility] Systolic blood 2021-07-03 08:18:00 156 mm[Hg] [facility] Diastolic blood 2021-07-03 08:18:00 67 mm[Hg] [facility] Heart rate 2021-07-03 08:18:00 68 /min [facility] Body temperature 2021-07-03 08:18:00 36.22 Priya [facility] Respiratory rate 2021-07-03 08:18:00 20 /min [facility] Oxygen saturation in 2021-07-03 08:18:00 94 /min [facility] Arterial blood by Medical Ce nter Pulse oximetry Heart rate 2021-07-02 10:00:00 72 /min [facility] Systolic blood 2021-07-02 08:00:00 171 mm[Hg] [facility] Diastolic blood 2021-07-02 08:00:00 78 mm[Hg] [facility] Body temperature 2021-07-02 08:00:00 36.56 Priya [facility] Respiratory rate 2021-07-02 08:00:00 20 /min [facility] Oxygen saturation in 2021-07-02 08:00:00 94 /min [facility] Arterial blood by Medical Ce nter Pulse oximetry Body weight 2021-07-02 04:21:00 62.37 kg [facility] BMI 2021-07-02 04:21:00 24.36 kg/m2 [facility] Systolic blood 2021-07-01 09:15:00 167 mm[Hg] [facility] Diastolic blood 2021-07-01 09:15:00 71 mm[Hg] [facility] Heart rate 2021-07-01 09:15:00 71 /min [facility] Respiratory rate 2021-07-01 09:15:00 14 /min [facility] Oxygen saturation in 2021-07-01 09:15:00 96 /min [facility] Arterial blood by Medical Ce nter Pulse oximetry Body temperature 2021-07-01 09:00:00 36.44 Priya [facility] Systolic blood 2021-06-29 14:24:00 169 mm[Hg] [facility] Diastolic blood 2021-06-29 14:24:00 71 mm[Hg] [facility] Heart rate 2021-06-29 14:24:00 70 /min [facility] Body temperature 2021-06-29 14:24:00 36.67 Priya [facility] Respiratory rate 2021-06-29 14:24:00 20 /min [facility] Oxygen saturation in 2021-06-29 14:24:00 98 /min [facility] Arterial blood by Medical Ce nter Pulse oximetry Systolic blood 2021-06-29 07:46:00 133 mm[Hg] [facility] Diastolic blood 2021-06-29 07:46:00 63 mm[Hg] [facility] Heart rate 2021-06-29 07:46:00 70 /min [facility] Body temperature 2021-06-29 07:46:00 36.44 Priya [facility] Respiratory rate 2021-06-29 07:46:00 20 /min [facility] Oxygen saturation in 2021-06-29 07:46:00 97 /min [facility] Arterial blood by Medical Ce nter Pulse oximetry Systolic blood 2021-06-26 10:15:00 169 mm[Hg] [facility] Diastolic blood 2021-06-26 10:15:00 66 mm[Hg] [facility] Heart rate 2021-06-26 10:15:00 71 /min [facility] Body temperature 2021-06-26 10:15:00 36.56 Priya [facility] Respiratory rate 2021-06-26 10:15:00 16 /min [facility] Oxygen saturation in 2021-06-26 10:15:00 99 /min [facility] Arterial blood by Medical Ce nter Pulse oximetry Systolic blood 2021-06-26 08:15:00 128 mm[Hg] [facility] Diastolic blood 2021-06-26 08:15:00 53 mm[Hg] [facility] Heart rate 2021-06-26 08:15:00 70 /min [facility] Body temperature 2021-06-26 08:15:00 36.5 Priya [facility] Respiratory rate 2021-06-26 08:15:00 9 /min [facility] Oxygen saturation in 2021-06-26 08:15:00 97 /min [facility] Arterial blood by Medical Ce nter Pulse oximetry Body weight 2021-06-25 00:00:00 64.5 kg [facility] BMI 2021-06-25 00:00:00 25.19 kg/m2 [facility] Body height 2021-06-13 11:09:00 160 cm [facility] Body height 2020-07-24 16:34:00 160 cm [facility] Body weight 2020-07-24 16:34:00 67 kg [facility] BMI 2020-07-24 16:34:00 26.17 kg/m2 [facility] Temperature Oral (F) 2019-02-19 22:00:00 98.3 F [facility] Heart Rate 2019-02-19 22:00:00 [facility] [place] Respitory Rate 2019-02-19 22:00:00 Memori al [place] Systolic (mm Hg) 2019-02-19 22:00:00 Dickson rial [place] Diastolic (mm Hg) 2019-02-19 22:00:00 Mem orial [place] Height 2019-02-19 11:49:00 [facility] [place] Weight 2019-02-19 11:49:00 [facility] [place] Height 2019-01-26 05:47:00 [facility] [place] Heart Rate 2019-01-26 05:47:00 [facility] [place] Respitory Rate 2019-01-26 05:47:00 Memori al [place] Systolic (mm Hg) 2019-01-26 05:47:00 Dickson rial [place] Diastolic (mm Hg) 2019-01-26 05:47:00 Mem orial [place] Temperature Oral (F) 2019-01-26 05:19:00 101.3 F [facility] [place] Weight 2019-01-26 01:51:00 [facility] [place] Heart Rate 2018-10-11 20:05:00 [facility] [place] Systolic (mm Hg) 2018-10-11 20:05:00 Dickson rial [place] Diastolic (mm Hg) 2018-10-11 20:05:00 Mem orial [place] Temperature Oral (F) 2018-10-11 20:00:00 98.1 F Trey Solomon Respitory Rate 2018-10-11 20:00:00 Talisha Suarez Height 2018-10-10 13:16:00 Trey Solomon Weight 2018-10-10 13:16:00 [facility] [place] Procedures Procedure Date / Time Performing Clinician Source Performed EXTERNAL PROVIDER - ADC 2021-10-21 05:01:00 Doctor Unassigned, N o [facility] ARRYTHMIA IMPLANT REPORT 2021-07-06 00:00:00 Provider, Default C AIRAM [facility] POCT-GLUCOSE METER 2021-07-04 08:33:00 Logan Russo [facility] CBC (HEMOGRAM ONLY) 2021-07-04 04:37:[address] [facility] BASIC METABOLIC PANEL (7) 2021-07-04 04:37:[address] [facility] MAGNESIUM 2021-07-04 04:37:00 Martinez Ricardo [facility] PHOSPHORUS 2021-07-04 04:37:00 Martinez Ricardo [facility] XR CHEST 1 VIEW PORTABLE 2021-07-04 04:30:00 Martinez Ricardo [facility] / BEDSIDE [facility] POCT-GLUCOSE METER 2021-07-03 21:18:00 Logan Rusos [facility] POCT-GLUCOSE METER 2021-07-03 17:40:00 Logan Russo [facility] SARS-COV2/RT-PCR ([facility] & 2021-07-03 17:24:00 Martinez Ricardo [facility] REF LABS) [facility] POCT-GLUCOSE METER 2021-07-03 16:06:00 Logan Russo [facility] REPORT OF PROCEDURE - 2021-07-03 15:34:23 AmaratAngela croft [facility] ENDOSCOPY URL [facility] COLONOSCOPY 2021-07-03 15:05:00 AmaratAngela croft [facility] TISSUE EXAM 2021-07-03 15:04:00 AmaratguerdaAngela [facility] COLONOSCOPY,POLYPECTOMY 2021-07-03 14:39:00 AmaratungjadenRowan [facility] COLONOSCOPY 2021-07-03 14:00:00 AmaratguerdaAngela [facility] POCT-GLUCOSE METER 2021-07-03 13:31:00 RussoLogan [facility] COLONOSCOPY 2021-07-03 13:00:00 Amaratunge Angela [facility] HEMODIALYSIS INPATIENT 2021-07-03 10:32:50 Wilner Aponte [facility] POCT-GLUCOSE METER 2021-07-03 08:44:00 Russo, Logan Vaca [facility] XR CHEST 1 VIEW PORTABLE 2021-07-03 05:24:00 Martinez Ricardo [facility] / [facility] CBC (HEMOGRAM ONLY) 2021-07-03 03:08:00 [facility] BASIC METABOLIC PANEL (7) 2021-07-03 03:08:[address] [facility] MAGNESIUM 2021-07-03 03:08:00 Davion [facility] PHOSPHORUS 2021-07-03 03:08:00 Martinez Ricardo [facility] POCT-GLUCOSE METER 2021-07-02 21:26:00 RussoLogan [facility] POCT-GLUCOSE METER 2021-07-02 17:49:00 Russo, Logan Vaca [facility] POCT-GLUCOSE METER 2021-07-02 12:48:00 Russo, Logan Vaca [facility] POCT-GLUCOSE METER 2021-07-02 08:33:00 Russo, Logan Vaca [facility] XR CHEST 1 VIEW PORTABLE 2021-07-02 06:45:00 Martinez Ricardo [facility] CBC (HEMOGRAM ONLY) 2021-07-02 05:29:00 [facility] (7) 2021-07-02 05:29:[address] [facility] MAGNESIUM 2021-07-02 05:29:00 [facility] 2021-07-02 05:29:00 [facility] POCT-GLUCOSE METER 2021-07-01 21:45:00 RussoLogan [facility] POCT-GLUCOSE METER 2021-07-01 17:44:00 RussoLogan [facility] POCT-GLUCOSE METER 2021-07-01 13:26:00 Logan Russo [facility] HEMODIALYSIS INPATIENT 2021-07-01 12:51:00 [facility] 2021-07-01 09:16:58 Wilner Aponte [facility] POCT-GLUCOSE METER 2021-07-01 08:31:00 Logan Russo [facility] XR CHEST 1 VIEW PORTABLE 2021-07-01 05:38:00 [facility] CBC (HEMOGRAM ONLY) 2021-07-01 05:15:00 [facility]OLIC PANEL (7) 2021-07-01 05:15:[address] [facility] MAGNESIUM 2021-07-01 05:15:00 [facility] 2021-07-01 05:15:00 [facility] POCT-GLUCOSE METER 2021-06-30 21:03:00 Logan Russo [facility] VENOGRAM 2021-06-30 18:06:00 Krzysztof Dodd [facility] POCT-GLUCOSE METER 2021-06-30 17:27:00 RussooLgan [facility] XR ABDOMEN / KUB 1 VIEW 2021-06-30 17:21:00 Camachojaden [address]ma st[address]ley [facility] POCT-GLUCOSE METER 2021-06-30 12:24:00 RussoLogan del cid [facility] POCT-GLUCOSE METER 2021-06-30 08:15:00 Logan Russo [facility] CBC (HEMOGRAM ONLY) 2021-06-30 04:40:[address] [facility] BASIC METABOLIC PANEL (7) 2021-06-30 04:40:[address] [facility] MAGNESIUM 2021-06-30 04:40:00 Martinez Ricardo [facility] PHOSPHORUS 2021-06-30 04:40:00 Martinez Ricardo [facility] XR CHEST 1 VIEW PORTABLE 2021-06-30 03:46:00 Martinez Ricardo [facility] PREPARE LEUKO-REDUCED RBC 2021-06-29 23:54:[address] [facility] POCT-GLUCOSE METER 2021-06-29 21:53:00 RussoLogan del cid [facility] POCT-GLUCOSE METER 2021-06-29 17:44:00 RussoLogan [facility] POCT-GLUCOSE METER 2021-06-29 14:20:00 Logan Russo [facility] HEMODIALYSIS INPATIENT 2021-06-29 13:25:00 Bertrand Bueno [facility] POCT-GLUCOSE METER 2021-06-29 08:39:00 Logan Russo [facility] XR CHEST 1 VIEW PORTABLE 2021-06-29 05:20:00 Martinez Ricardo [facility] CBC (HEMOGRAM ONLY) 2021-06-29 04:49:[address] [facility] BASIC METABOLIC PANEL (7) 2021-06-29 04:49:[address] [facility] MAGNESIUM 2021-06-29 04:49:00 Martinez Ricardo [facility] PHOSPHORUS 2021-06-29 04:49:00 Martinez Ricardo [facility] POCT-GLUCOSE METER 2021-06-28 19:42:00 Logan Russo [facility] POCT-GLUCOSE METER 2021-06-28 17:22:00 Logan Russo [facility] CBC W/PLT COUNT & AUTO 2021-06-28 15:23:00 Niki [facility] CBC W/PLT COUNT & AUTO 2021-06-28 15:23:00 Niki [facility] POCT-GLUCOSE METER 2021-06-28 12:31:00 Logan Russo [facility] TRANSFUSE LEUKO-REDUCED 2021-06-28 11:03:00 Martinez Ricardo [facility] RED BLOOD CELLS [facility] PREPARE LEUKO-REDUCED RBC 2021-06-28 10:49:[address] [facility] POCT-GLUCOSE METER 2021-06-28 08:32:00 Logan Russo [facility] XR CHEST 1 VIEW PORTABLE 2021-06-28 04:23:00 Martinez Ricardo [facility] / BEDSIDE [facility] CBC (HEMOGRAM ONLY) 2021-06-28 04:05:[address] [facility] BASIC METABOLIC PANEL (7) 2021-06-28 04:05:[address] [facility] MAGNESIUM 2021-06-28 04:05:00 Martinez Ricardo [facility] PHOSPHORUS 2021-06-28 04:05:00 [facility] LEUKO-REDUCED RBC 2021-06-27 23:54:[address] [facility] POCT-GLUCOSE METER 2021-06-27 21:27:00 RussoLogan [facility] POCT-GLUCOSE METER 2021-06-27 17:51:00 Russo, Logan Vaca [facility] POCT-GLUCOSE METER 2021-06-27 15:02:00 RussoLogan [facility] POCT-GLUCOSE METER 2021-06-27 12:08:00 Russo, Logan Vaca [facility] POCT-GLUCOSE METER 2021-06-27 08:23:00 RussoLogan [facility] SARS-COV2/RT-PCR ([facility] 2021-06-27 04:13:00 Davion [facility] REF LABS) [facility] CBC (HEMOGRAM ONLY) 2021-06-27 04:08:00 Davion [facility] BASIC METABOLIC PANEL (7) 2021-06-27 04:08:[address] [facility] MAGNESIUM 2021-06-27 04:08:00 Martinez Ricardo [facility] PHOSPHORUS 2021-06-27 04:08:00 Davion [facility] APTT 2021-06-27 04:08:00 MaryAbel hernandez [facility] PROTHROMBIN TIME/INR 2021-06-27 04:08:00 Abel Hernandez [facility] XR CHEST 1 VIEW PORTABLE 2021-06-27 03:58:00 Martinez Ricardo [facility] / BEDSIDE [facility] POCT-GLUCOSE METER 2021-06-26 20:59:00 RussoLogan del cid [facility] HEMODIALYSIS INPATIENT 2021-06-26 19:13:00 Wilner Aponte [facility] POCT-GLUCOSE METER 2021-06-26 18:55:00 RussoLogan del cid [facility] HEMOGLOBIN AND HEMATOCRIT 2021-06-26 11:31:00 Dannielle Erwin [facility] POCT-GLUCOSE METER 2021-06-26 11:15:00 Logan Russo [facility] POCT-GLUCOSE METER 2021-06-26 09:16:00 Logan Russo [facility] LASER EXTRACTION,LEAD 2021-06-26 07:30:00 Krzysztof Dodd [facility] TRANSFUSE LEUKO-REDUCED 2021-06-26 06:15:00 [facility]LOOD CELLS [facility] PREPARE LEUKO-REDUCED RBC 2021-06-26 06:01:[address] [facility] CBC (HEMOGRAM ONLY) 2021-06-26 03:25:00 [facility] BASIC METABOLIC PANEL (7) 2021-06-26 03:25:[address] [facility] MAGNESIUM 2021-06-26 03:25:00 Martinez Ricardo [facility] PHOSPHORUS 2021-06-26 03:25:00 Davion [facility] APTT 2021-06-26 03:25:00 MaryAbel hernandez [facility] PROTHROMBIN TIME/INR 2021-06-26 03:25:00 Mary, Abel [facility] XR CHEST 1 VIEW PORTABLE 2021-06-26 01:25:00 Martinez Ricardo [facility] / BEDSIDE [facility] POCT-GLUCOSE METER 2021-06-25 21:46:00 Logan Russo [facility] TYPE AND SCREEN, 2021-06-25 18:55:00 Krzysztof Dodd [facility] AUTOMATED [facility] IR TUNNELED CATHETER 2021-06-25 17:45:00 Gurinder Nash [facility] INSERTION [facility] POCT-GLUCOSE METER 2021-06-25 11:18:00 Logan Russo [facility] ECG 12-LEAD 2021-06-25 09:57:06 Unknown, Hl7 [facility] ECG 12-LEAD 2021-06-25 09:57:06 Unknown, Hl7 Doctor [facility] ECG 12-LEAD 2021-06-25 09:56:17 Unknown, Hl7 Doctor [facility] CBC (HEMOGRAM ONLY) 2021-06-25 02:56:[address] [facility] BASIC METABOLIC PANEL (7) 2021-06-25 02:56:[address] [facility] MAGNESIUM 2021-06-25 02:56:00 Martinez Ricardo [facility] PHOSPHORUS 2021-06-25 02:56:00 Davion [facility] APTT 2021-06-25 02:56:00 MaryAbel hernandez [facility] PROTHROMBIN TIME/INR 2021-06-25 02:56:00 MaryAbel hernandez [facility] XR CHEST 1 VIEW PORTABLE 2021-06-25 02:31:00 Martinez Ricardo [facility] / BEDSIDE [facility] POCT-GLUCOSE METER 2021-06-24 22:02:00 RussoLogan [facility] XR ABDOMEN / KUB 1 VIEW 2021-06-24 18:29:00 Gurinder Nash [facility] POCT-GLUCOSE METER 2021-06-24 16:07:00 RussoLogan [facility] POCT-GLUCOSE METER 2021-06-24 12:26:00 Logan Russo [facility] HEMODIALYSIS INPATIENT 2021-06-24 11:25:03 Wilner Aponte [facility] POCT-GLUCOSE METER 2021-06-24 08:28:00 RussoLogan [facility] CBC (HEMOGRAM ONLY) 2021-06-24 03:01:[address] [facility] BASIC METABOLIC PANEL (7) 2021-06-24 03:01:[address] [facility] MAGNESIUM 2021-06-24 03:01:00 Martinez Ricardo [facility] PHOSPHORUS 2021-06-24 03:01:00 [facility] 2021-06-24 03:01:00 MaryAbel hernandez [facility] PROTHROMBIN TIME/INR 2021-06-24 03:01:00 MaryAbel hernandez [facility] XR CHEST 1 VIEW PORTABLE 2021-06-24 00:32:00 [facility] POCT-GLUCOSE METER 2021-06-23 20:56:00 RussoLogan [facility] POCT-GLUCOSE METER 2021-06-23 16:10:00 Logan Russo [facility] BASIC METABOLIC PANEL (7) 2021-06-23 12:59:00 [facility] POCT-GLUCOSE METER 2021-06-23 11:20:00 Logan Russo [facility] POCT-GLUCOSE METER 2021-06-23 07:29:00 Logan Russo [facility] BASIC METABOLIC PANEL (7) 2021-06-23 04:49:00 Omaira Manzo [facility] MAGNESIUM 2021-06-23 04:49:00 Davion [facility] PHOSPHORUS 2021-06-23 04:49:00 Davion [facility] CBC (HEMOGRAM ONLY) 2021-06-23 02:41:00 [facility] 2021-06-23 02:41:00 MaryAbel hernandez [facility] PROTHROMBIN TIME/INR 2021-06-23 02:41:00 MaryAbel hernandez [facility] XR CHEST 1 VIEW PORTABLE 2021-06-23 01:19:00 [facility] POCT-GLUCOSE METER 2021-06-22 22:11:00 RussoLogan [facility] POCT-GLUCOSE METER 2021-06-22 18:02:00 Russo, Logan R [facility] 2D ECHO W/ DOPPLER 2021-06-22 15:55:38 Lupis Erwin CH, I [facility]IC [facility]OLIC PANEL (7) 2021-06-22 14:30:00 Omaira Manzo [facility] POCT-GLUCOSE METER 2021-06-22 12:25:00 Logan Russo [facility] HEMODIALYSIS INPATIENT 2021-06-22 11:44:15 Wilner Aponte [facility] OXYGEN SATURATION, 2021-06-22 10:35:00 Lupis Erwin CH, I [facility] BASIC METABOLIC PANEL (7) 2021-06-22 05:37:00 Omaira Manzo [facility] CBC (HEMOGRAM ONLY) 2021-06-22 01:34:00 Davion [facility] APTT 2021-06-22 01:34:00 Mary [facility] PROTHROMBIN TIME/INR 2021-06-22 01:34:00 Abel Hernandez [facility] BASIC METABOLIC PANEL (7) 2021-06-22 01:33:00 Omaira Manzo [facility] MAGNESIUM 2021-06-22 01:33:00 Davion [facility] PHOSPHORUS 2021-06-22 01:33:00 [facility] XR CHEST 1 VIEW PORTABLE 2021-06-22 01:05:00 Martinez Ricardo [facility] / BEDSIDE [facility] POCT-GLUCOSE METER 2021-06-21 21:09:00 Logan Russo [facility] POCT-GLUCOSE METER 2021-06-21 18:58:00 Logan Russo [facility] POCT-GLUCOSE METER 2021-06-21 13:30:00 Logan Russo [facility] BASIC METABOLIC PANEL (7) 2021-06-21 13:29:00 Omaira Manzo [facility] PREPARE LEUKO-REDUCED RBC 2021-06-21 03:28:00 Derick Carver Si [facility] BASIC METABOLIC PANEL (7) 2021-06-21 03:21:00 Omaira Manzo [facility] MAGNESIUM 2021-06-21 03:21:00 Samia Tamayo [facility] PHOSPHORUS 2021-06-21 03:21:00 Samia Tamayo [facility] CBC (HEMOGRAM ONLY) 2021-06-21 03:21:00 Davion [facility] APTT 2021-06-21 03:21:00 Mary [facility] PROTHROMBIN TIME/INR 2021-06-21 03:21:00 Mary [facility] XR CHEST 1 VIEW PORTABLE 2021-06-21 01:34:00 Martinez Ricardo [facility] / BEDSIDE [facility] PREPARE LEUKO-REDUCED RBC 2021-06-20 23:54:00 Art Jiménez [facility] BASIC METABOLIC PANEL (7) 2021-06-20 17:40:00 [facility] POCT-GLUCOSE METER 2021-06-20 13:33:00 Logan Russo [facility] POCT-GLUCOSE METER 2021-06-20 06:06:00 Logan Russo [facility] SARS-COV2/RT-PCR ([facility] & 2021-06-20 01:20:00 Davion [facility] REF LABS) [facility] BLOOD GAS, ARTERIAL 2021-06-20 01:20:00 Mary Abel [facility] BASIC METABOLIC PANEL (7) 2021-06-20 01:19:00 Samia Tamayo CH I [facility] MAGNESIUM 2021-06-20 01:19:00 Samia Tamayo [facility] PHOSPHORUS 2021-06-20 01:19:00 Ahmad, Ali [facility] CBC (HEMOGRAM ONLY) 2021-06-20 01:19:[address] [facility] APTT 2021-06-20 01:19:00 Abel Hernandez [facility] PROTHROMBIN TIME/INR 2021-06-20 01:19:00 Mary, [facility] CALCIUM, IONIZED 2021-06-20 01:19:00 [facility] 1 VIEW PORTABLE 2021-06-20 01:05:00 Davion [facility] / BEDSIDE [facility] PREPARE PLATELETS 2021-06-19 23:55:00 Jameson Kuo [facility] PREPARE RBC 2021-06-19 23:54:00 RussoLogan del cid [facility] MAGNESIUM 2021-06-19 21:32:00 Jersey [facility] PH, ARTERIAL 2021-06-19 21:32:00 Jersey Costello [facility] PHOSPHORUS 2021-06-19 21:32:00 Jersey Costello [facility] BASIC METABOLIC PANEL (7) 2021-06-19 21:32:00 Omaira Manzo [facility] POCT-GLUCOSE METER 2021-06-19 17:55:00 Logan Russo [facility] BLOOD GAS, ARTERIAL 2021-06-19 12:39:00 MaryAbel [facility] BLOOD GAS, ARTERIAL 2021-06-19 11:13:00 MaryAbel hernandez [facility] POCT-GLUCOSE METER 2021-06-19 08:41:00 Logan Russo [facility] TRANSFUSE LEUKO-REDUCED 2021-06-19 07:45:00 Derick Carver [facility] RED BLOOD CELLS [facility] BASIC METABOLIC PANEL (7) 2021-06-19 02:14:00 Samia Tamayo [facility] MAGNESIUM 2021-06-19 02:14:00 Ahmapamela, Samia [facility] PHOSPHORUS 2021-06-19 02:14:00 Roni, [facility] CBC (HEMOGRAM ONLY) 2021-06-19 02:14:[address] [facility] APTT 2021-06-19 02:14:00 MaryAbel hernandez [facility] PROTHROMBIN TIME/INR 2021-06-19 02:14:00 MaryAbel hernandez [facility] BLOOD GAS, ARTERIAL 2021-06-19 02:14:00 MaryAbel hernandez [facility] OXYGEN SATURATION, 2021-06-19 02:14:[address] [facility] XR CHEST 1 VIEW PORTABLE 2021-06-19 01:52:00 Davion [facility] / BEDSIDE [facility] POCT-GLUCOSE METER 2021-06-18 23:55:00 RussoLogan [facility] PREPARE LEUKO-REDUCED RBC 2021-06-18 23:55:00 Shiva Jeter [facility] POCT-GLUCOSE METER 2021-06-18 23:03:00 Russo, Logan Vaca [facility] POCT-GLUCOSE METER 2021-06-18 21:14:00 RussoLogan [facility] POCT-GLUCOSE METER 2021-06-18 18:54:00 RussoLogan [facility] CBC (HEMOGRAM ONLY) 2021-06-18 18:15:00 MaryAbel [facility] BASIC METABOLIC PANEL (7) 2021-06-18 18:15:00 MaryAbel hernandez [facility] APTT 2021-06-18 18:15:00 MaryAbel hernandez [facility] PROTHROMBIN TIME/INR 2021-06-18 18:15:00 MaryAbel hernandez [facility] LACTIC ACID, ARTERIAL 2021-06-18 18:15:00 MaryAbel hernandez CH I [facility] PHOSPHORUS 2021-06-18 18:15:00 Mary, [facility] MAGNESIUM 2021-06-18 18:15:00 Mary [facility] BLOOD GAS, ARTERIAL 2021-06-18 18:15:00 [facility] OXYGEN SATURATION, 2021-06-18 18:15:[address] [facility] RRL CRITICAL LABS 2021-06-18 16:04:00 Mary [facility] (ABG,NA,K,H&H,GLUCOSE) [facility] C enter CALCIUM, IONIZED 2021-06-18 16:04:00 [facility] BLOOD GAS, ARTERIAL 2021-06-18 16:04:00 [facility] SODIUM NA-STAT LAB 2021-06-18 16:04:00 Mary [facility] POTASSIUM-STAT LAB 2021-06-18 16:04:00 Mary [facility] GLUCOSE-STAT LAB 2021-06-18 16:04:00 Mary [facility] HGB/HCT (H&H) - STAT LAB 2021-06-18 16:04:00 [facility] PREPARE PLASMA 2021-06-18 15:44:00 Logan Russo [facility] XR CHEST 1 VIEW PORTABLE 2021-06-18 15:33:00 Mary [facility] / BEDSIDE Medical Center OXYGEN SATURATION, 2021-06-18 15:03:00 Mary, [facility] SURGICALLY OBTAINED 2021-06-18 15:01:35 Logan Russo [facility] CULTURE + GRAM STAIN Medical [facility] ter FUNGUS CULTURE + SMEAR 2021-06-18 15:01:35 Logan Russo [facility] CULTURE + SMEAR 2021-06-18 15:01:35 Logan Russo [facility] (NON-SPUTUM) [facility] HEMOGLOBIN AND HEMATOCRIT 2021-06-18 14:58:00 Luh Cosby CH I [facility] CBC W/PLT COUNT & AUTO 2021-06-18 14:58:[address] [facility] DIFFERENTIAL [facility] CBC W/PLT COUNT & AUTO 2021-06-18 14:58:00 Abel Hernandez [facility] (CELLAVISION MANUAL DIFF) 2021-06-18 14:58:00 Abel Hernandez [facility] BASIC METABOLIC PANEL (7) 2021-06-18 14:57:00 Aebl Hernandez [facility] MAGNESIUM 2021-06-18 14:57:00 Abel Hernandez [facility] CALCIUM, IONIZED 2021-06-18 14:57:00 Abel Hernandez [facility] PROTHROMBIN TIME/INR 2021-06-18 14:57:00 Abel Hernandez [facility] APTT 2021-06-18 14:57:00 Abel Hernandez [facility] PHOSPHORUS 2021-06-18 14:57:00 Abel Hernandez [facility] POTASSIUM 2021-06-18 14:57:00 Abel Hernandez [facility] PREPARE PLATELETS 2021-06-18 14:20:00 Jameson Kuo [facility] PLATELET COUNT 2021-06-18 13:12:54 [facility] POCT-ACT 2021-06-18 13:08:00 Logan Russo [facility] RRL CRITICAL LABS 2021-06-18 13:05:56 [facility] (ABG,NA,K,H&H,GLUCOSE) [facility] enter CALCIUM, IONIZED 2021-06-18 13:05:56 Max [facility] FIBRINOGEN 2021-06-18 13:05:56 Max [facility] APTT 2021-06-18 13:05:56 [facility]INR 2021-06-18 13:05:56 CullmanAsad [facility] S [facility] BLOOD GAS, ARTERIAL 2021-06-18 13:05:56 Max [facility] SODIUM NA-STAT LAB 2021-06-18 13:05:56 Max [facility] POTASSIUM-STAT LAB 2021-06-18 13:05:56 Max, [facility] GLUCOSE-STAT LAB 2021-06-18 13:05:56 Max [facility] HGB/HCT (H&H) - STAT LAB 2021-06-18 13:05:56 Asad Santana [facility] TRANSFUSE LEUKO-REDUCED 2021-06-18 12:46:00 Asad Santana [facility] PLATELETS [facility] TRANSFUSE LEUKO-REDUCED 2021-06-18 12:45:00 Asad Santana [facility] PLATELETS [facility] RRL CRITICAL LABS 2021-06-18 12:22:57 Logan Russo [facility] (ABG,NA,K,H&H,GLUCOSE) [facility] C enter BLOOD GAS, ARTERIAL 2021-06-18 12:22:57 Logan Russo [facility] SODIUM NA-STAT LAB 2021-06-18 12:22:57 Logan Russo [facility] POTASSIUM-STAT LAB 2021-06-18 12:22:57 Logan Russo [facility] GLUCOSE-STAT LAB 2021-06-18 12:22:57 Logan Russo [facility] HGB/HCT (H&H) - STAT LAB 2021-06-18 12:22:57 Logan Russo [facility] POCT-ACT 2021-06-18 12:20:00 Logan Russo [facility] RRL CRITICAL LABS 2021-06-18 12:17:57 Logan Russo [facility] (ABG,NA,K,H&H,GLUCOSE) Medical C enter BLOOD GAS, ARTERIAL 2021-06-18 12:17:57 Logan Russo [place] [facility] SODIUM NA-STAT LAB 2021-06-18 12:17:57 Beth Logan Vaca [facility] POTASSIUM-STAT LAB 2021-06-18 12:17:57 Logan Russo [facility] GLUCOSE-STAT LAB 2021-06-18 12:17:57 Logan Russo [facility] HGB/HCT (H&H) - STAT LAB 2021-06-18 12:17:57 Logan Russo [facility] MISCELLANEOUS LAB ORDER 2021-06-18 11:59:38 [facility] PL[facility] COUNT 2021-06-18 11:59:38 [facility] FIBRINOGEN 2021-06-18 11:59:38 [facility] PROTHROMBIN TIME/INR 2021-06-18 11:59:38 [facility] 2021-06-18 11:59:38 [facility] POCT-ACT 2021-06-18 11:43:00 Logan Russo [facility] TISSUE EXAM 2021-06-18 11:41:00 Logan Russo [facility] RRL CRITICAL LABS 2021-06-18 11:40:27 Logan Russo [place] [facility] (ABG,NA,K,H&H,GLUCOSE) Medical C enter BLOOD GAS, ARTERIAL 2021-06-18 11:40:27 Logan Russo [place] [facility] SODIUM NA-STAT LAB 2021-06-18 11:40:27 Logan Russo [facility] POTASSIUM-STAT LAB 2021-06-18 11:40:27 Logan Russo [facility] GLUCOSE-STAT LAB 2021-06-18 11:40:27 Logan Russo [facility] HGB/HCT (H&H) - STAT LAB 2021-06-18 11:40:27 Russo, [facility] POCT-ACT 2021-06-18 11:15:00 Russo, [facility] RRL CRITICAL LABS 2021-06-18 11:13:46 Russo, Logan Vaca [facility] (ABG,NA,K,H&H,GLUCOSE) Medical C enter BLOOD GAS, ARTERIAL 2021-06-18 11:13:46 Russo, [facility] SODIUM NA-STAT LAB 2021-06-18 11:13:46 Russo, [facility] POTASSIUM-STAT LAB 2021-06-18 11:13:46 Russo, [facility] GLUCOSE-STAT LAB 2021-06-18 11:13:46 Russo, [facility] HGB/HCT (H&H) - STAT LAB 2021-06-18 11:13:46 Russo, [facility] POCT-ACT 2021-06-18 10:47:00 Russo, [facility] RRL CRITICAL LABS 2021-06-18 10:45:20 Russo, Logan [facility] es (ABG,NA,K,H&H,GLUCOSE) Medical C enter BLOOD GAS, ARTERIAL 2021-06-18 10:45:20 Russo, [facility] SODIUM NA-STAT LAB 2021-06-18 10:45:20 Russo, [facility] POTASSIUM-STAT LAB 2021-06-18 10:45:20 Russo, [facility] GLUCOSE-STAT LAB 2021-06-18 10:45:20 Russo, [facility] HGB/HCT (H&H) - STAT LAB 2021-06-18 10:45:20 Russo, [facility] POCT-ACT 2021-06-18 10:14:00 Russo, [facility] [facility] ANESTHESIA NIMCO 2021-06-18 10:03:35 Lydia Marmolejo [facility] TRANSFUSE LEUKO-REDUCED 2021-06-18 09:26:00 Asad Santana [facility] RED BLOOD CELLS [facility] RRL CRITICAL LABS 2021-06-18 08:54:20 [facility] (ABG,NA,K,H&H,GLUCOSE) [facility] enter CALCIUM, IONIZED 2021-06-18 08:54:20 [facility] BLOOD GAS, ARTERIAL 2021-06-18 08:54:20 [facility] SODIUM NA-STAT LAB 2021-06-18 08:54:20 [facility] POTASSIUM-STAT LAB 2021-06-18 08:54:20 [facility] GLUCOSE-STAT LAB 2021-06-18 08:54:20 [facility] HGB/HCT (H&H) - STAT LAB 2021-06-18 08:54:20 Asad Santana [facility] REPAIR,MITRAL VALVE 2021-06-18 07:38:00 Russo [facility] VALVULOPLASTY,TRICUSPID 2021-06-18 07:38:[address] [facility] STERNOTOMY 2021-06-18 07:38:00 [facility] NIMCO 2021-06-18 07:38:00 [facility]so[facility]an [facility] CBC W/PLT COUNT & AUTO 2021-06-18 05:37:00 Roni [facility] BASIC METABOLIC PANEL (7) 2021-06-18 05:37:00 Samia Tamayo [facility] MAGNESIUM 2021-06-18 05:37:00 Ahsarah [facility] PHOSPHORUS 2021-06-18 05:37:00 Ahsarah [facility] CBC W/PLT COUNT & AUTO 2021-06-18 05:37:00 Samia Tamayo [facility] TRANSFUSE LEUKO-REDUCED 2021-06-17 23:31:00 Shiva Jeter [facility] RED BLOOD CELLS [facility] POCT-GLUCOSE METER 2021-06-17 21:28:00 [facility] HEMOGLOBIN AND HEMATOCRIT 2021-06-17 21:16:00 [facility] ABDOMEN/PELVIS WITHOUT 2021-06-17 17:07:00 [facility] IV CONTRAST [facility] Center XR ABDOMEN / KUB 1 VIEW 2021-06-17 16:15:00 [facility] MAGNESIUM 2021-06-17 15:48:00 [facility] COMPREHENSIVE METABOLIC 2021-06-17 15:48:00 [facility] PANEL [facility] HEMOGLOBIN A1C 2021-06-17 15:48:00 [facility] CBC W/PLT COUNT & AUTO 2021-06-17 15:48:00 [facility] PROTHROMBIN TIME/INR 2021-06-17 15:48:00 [facility] APTT 2021-06-17 15:48:00 [facility] TYPE AND SCREEN, 2021-06-17 15:48:00 [facility] AUTOMATED [facility] CBC W/PLT COUNT & AUTO 2021-06-17 15:48:00 [facility] ECG 12-LEAD 2021-06-17 15:31:19 [facility] HEMODIALYSIS INPATIENT 2021-06-17 08:22:41 Wilner Aponte [facility] CBC W/PLT COUNT & AUTO 2021-06-17 04:15:00 Samia Tamayo [facility] BASIC METABOLIC PANEL (7) 2021-06-17 04:15:00 AhSamia smith [facility] MAGNESIUM 2021-06-17 04:15:00 Ahsarah [facility] PHOSPHORUS 2021-06-17 04:15:00 Ahmapamela [facility] CBC W/PLT COUNT & AUTO 2021-06-17 04:15:00 Roni [facility] POCT-GLUCOSE METER 2021-06-16 23:59:00 [facility] POCT-GLUCOSE METER 2021-06-16 18:00:00 [facility] [place] CEREBRAL 4 VESSEL 2021-06-16 12:55:00 Eloy Portillo [facility] ANGIOGRAM [facility] PACEMAKER CHECK WITH 2021-06-16 10:00:06 Rosa [facility] REPROGRAMMING [facility] MR BRAIN WITHOUT IV 2021-06-16 09:57:00 Ladarius Jc [facility] CONTRAST [facility] nter PACEMAKER CHECK WITH 2021-06-16 09:31:48 Rosa Maria [facility] REPROGRAMMING [facility] POCT-GLUCOSE METER 2021-06-16 07:18:00 [facility] CBC W/PLT COUNT & AUTO 2021-06-16 04:21:00 Roni [facility] BASIC METABOLIC PANEL (7) 2021-06-16 04:21:00 AhSamia smith [facility] MAGNESIUM 2021-06-16 04:21:00 Ahsarah [facility] PHOSPHORUS 2021-06-16 04:21:00 Ahsarah [facility] CBC W/PLT COUNT & AUTO 2021-06-16 04:21:00 Roni [facility] POCT-GLUCOSE METER 2021-06-15 21:28:00 [facility] CTA HEART CORONARY WITH 2021-06-15 18:20:00 Ahs[facility]ah [facility] CALCIUM EVALUATION Medical Cente r WITHOUT FFR HEPATIC FUNCTION PANEL 2021-06-15 15:18:00 Harjeet Luh [facility] ABORH, MANUAL 2021-06-15 05:54:00 Kelli Merrill [facility] PT/APTT 2021-06-15 04:16:00 Ahsarah [facility] CBC W/PLT COUNT & AUTO 2021-06-15 04:16:00 Ahsarah [facility] BASIC METABOLIC PANEL (7) 2021-06-15 04:16:00 Ahsarah [facility] MAGNESIUM 2021-06-15 04:16:00 Ahsarah [facility] PHOSPHORUS 2021-06-15 04:16:00 sarah [facility] TYPE AND SCREEN, 2021-06-15 04:16:[address] [facility] CBC W/PLT COUNT & AUTO 2021-06-15 04:16:00 Ahsarah [facility] POCT-GLUCOSE METER 2021-06-14 11:09:00 Ladarius Jc [facility] POCT-GLUCOSE METER 2021-06-14 07:31:00 Ladarius Jc [facility] EEG 12-26 HR CONTINUOUS 2021-06-14 06:25:00 Ladarius Jc [facility] MONITORING WITH VIDEO [facility] CBC W/PLT COUNT & AUTO 2021-06-14 04:05:00 Roni [facility] BASIC METABOLIC PANEL (7) 2021-06-14 04:05:00 Roni [facility] MAGNESIUM 2021-06-14 04:05:00 Ahsarah [facility] PHOSPHORUS 2021-06-14 04:05:00 Ahmapamela [facility] CBC W/PLT COUNT & AUTO 2021-06-14 04:05:[address] [facility] POCT-GLUCOSE METER 2021-06-13 17:10:00 Ladarius Jc [facility]ter POCT-GLUCOSE METER 2021-06-13 12:44:00 Ladarius Jc [facility]ter HEPARIN ANTIBODY 2021-06-13 11:25:00 Thom Almodovar [facility] EEG 12-26 HR CONTINUOUS 2021-06-13 11:06:00 Pamela Orta [facility] MONITORING WITH VIDEO Medical Ce nter IRON, TIBC, % SAT. 2021-06-13 08:28:00 [facility] r FERRITIN 2021-06-13 08:28:00 [facility] POCT-GLUCOSE METER 2021-06-13 08:27:00 Mary Kate Gracia [facility] CBC W/PLT COUNT & AUTO 2021-06-13 03:36:00 Samia Tamayo [facility] BASIC METABOLIC PANEL (7) 2021-06-13 03:36:00 Samia Tamayo I [facility] MAGNESIUM 2021-06-13 03:36:00 Samia Tamayo [facility] PHOSPHORUS 2021-06-13 03:36:00 Samia Tamayo [facility] CBC W/PLT COUNT & AUTO 2021-06-13 03:36:[address] [facility] POCT-GLUCOSE METER 2021-06-13 01:48:00 Mary Kate Gracia [facility] HEMODIALYSIS INPATIENT 2021-06-12 23:02:53 Harshil Loving [facility] POCT-GLUCOSE METER 2021-06-12 18:54:00 [facility] & 2021-06-12 17:07:[address] DavionMart[address] [facility] REF LABS) [facility] EEG AWAKE AND DROWSY 2021-06-12 12:20:[address] [facility] BRAIN WITHOUT IV 2021-06-12 08:15:[address] [facility] POCT-GLUCOSE METER 2021-06-12 07:20:00 Mary Kate Gracia [facility] CTA BRAIN 2021-06-12 01:53:00 Jan[facility] CTA CAROTID 2021-06-12 01:53:[address] [facility] [address] BRAIN WITHOUT IV 2021-06-12 01:31:00 Janina [facility] CBC W/PLT COUNT & AUTO 2021-06-12 01:07:00 Roni [facility] HIGH SENSITIVITY TROPONIN 2021-06-12 01:07:00 Mary Kate Gracia [facility] LACTIC ACID, VENOUS 2021-06-12 01:07:00 [facility] PROTHROMBIN TIME/INR 2021-06-12 01:07:00 [facility] CBC W/PLT COUNT & AUTO 2021-06-12 01:07:00 Anshul Acharya [facility] BASIC METABOLIC PANEL (7) 2021-06-12 00:49:00 Samia Tamayo [facility] MAGNESIUM 2021-06-12 00:49:00 AhSamia smith [facility] PHOSPHORUS 2021-06-12 00:49:00 Roni [facility] ECG 12-LEAD 2021-06-12 00:43:57 Unknown, Hl7 [facility] ECG 12-LEAD 2021-06-12 00:43:57 Unknown, Hl[facility] ECG 12-LEAD 2021-06-12 00:40:07 Unknown, Hl7 [facility] ECG 12-LEAD 2021-06-12 00:39:50 Unknown, Hl7 [facility] ECG 12-LEAD 2021-06-12 00:39:50 Unknown, Hl7 [facility] POCT-GLUCOSE METER 2021-06-12 00:35:00 Mary Kate Gracia [facility] POCT-GLUCOSE METER 2021-06-11 20:12:00 Mary Kate Gracia [facility] POCT-GLUCOSE METER 2021-06-11 16:12:00 [facility] BLOOD CULTURE 2021-06-11 11:47:00 Jocelyne Alejandre [facility] POCT-GLUCOSE METER 2021-06-11 11:17:00 Mary Kate Gracia [facility] PACEMAKER CHECK 2021-06-11 10:59:25 Hernandez James [facility] POCT-GLUCOSE METER 2021-06-11 06:33:00 Mary Kate Gracia Emm[facility] BLOOD CULTURE 2021-06-11 04:03:00 Jessica [facility] CBC W/PLT COUNT & AUTO 2021-06-11 04:03:00 Samia Tamayo [facility] BASIC METABOLIC PANEL (7) 2021-06-11 04:03:00 Samia Tamayo I [facility] MAGNESIUM 2021-06-11 04:03:00 AhmaSamia santiago [facility] PHOSPHORUS 2021-06-11 04:03:00 AhSamia smith [facility] CBC W/PLT COUNT & AUTO 2021-06-11 04:03:00 Anshul Acharya [facility] POCT-BLOOD GASES, VENOUS 2021-06-10 22:25:00 Mary Kate Gracia [facility] POCT-SODIUM 2021-06-10 22:25:00 [facility] POCT-POTASSIUM 2021-06-10 22:25:00 Ali, Hiba [facility] POCT-HEMOGLOBIN 2021-06-10 22:25:00 Samia [facility] POCT-HEMATOCRIT 2021-06-10 22:25:00 Samia [facility] POCT-GLUCOSE 2021-06-10 22:25:00 Samia [facility] CBC W/PLT COUNT & AUTO 2021-06-10 22:23:00 Jessica John [facility] CBC W/PLT COUNT & AUTO 2021-06-10 22:23:00 Jessica John [facility] XR CHEST 1 VIEW PORTABLE 2021-06-10 22:14:00 Jessica John [facility] / BEDSIDE [facility] BLOOD CULTURE 2021-06-10 22:08:00 [facility] LACT[facility]ID, VENOUS 2021-06-10 22:07:00 Jessica [facility] POCT-GLUCOSE METER 2021-06-10 21:20:00 [facility] HEMODIALYSIS INPATIENT 2021-06-10 17:49:00 Wilner Aponte [facility] POCT-GLUCOSE METER 2021-06-10 16:22:00 [facility] POCT-GLUCOSE METER 2021-06-10 11:29:00 [facility] POCT-GLUCOSE METER 2021-06-10 07:27:00 [facility] CBC W/PLT COUNT & AUTO 2021-06-10 04:36:00 Samia Tamayo [facility] BASIC METABOLIC PANEL (7) 2021-06-10 04:36:00 Samia Tamayo I [facility] MAGNESIUM 2021-06-10 04:36:00 Samia Tamayo [facility] PHOSPHORUS 2021-06-10 04:36:00 Ahmad, [facility] CBC W/PLT COUNT & AUTO 2021-06-10 04:36:00 Anshul Acharya [facility] POCT-GLUCOSE METER 2021-06-09 21:22:00 Haj-Ismail, [facility] POCT-GLUCOSE METER 2021-06-09 16:16:00 Ha-Isherbert [facility] 2D ECHO W/ DOPPLER 2021-06-09 12:21:49 Uri Umanzor [facility] (CW/PW/COLOR) [facility] TRANSESOPHAGEAL ECHO 2021-06-09 09:04:02 [facility] POCT-GLUCOSE METER 2021-06-09 06:11:00 Haj-Ismail, [facility] CBC W/PLT COUNT & AUTO 2021-06-09 03:34:00 Roni [facility] BASIC METABOLIC PANEL (7) 2021-06-09 03:34:00 Roni [facility] I [facility] MAGNESIUM 2021-06-09 03:34:00 Ahmad [facility] PHOSPHORUS 2021-06-09 03:34:00 Ahmapamela [facility] CBC W/PLT COUNT & AUTO 2021-06-09 03:34:00 Anshul Acharya [facility] POCT-GLUCOSE METER 2021-06-08 21:03:00 Habernardino-Isherbert [facility] HEMODIALYSIS INPATIENT 2021-06-08 15:21:58 Jersey Costello [facility] COLOR-FLOW MAPPING 2021-06-08 13:42:25 Hill [facility] CONT WAVE PULSED DOPPLER 2021-06-08 13:42:25 Hill [facility] PTH, INTACT 2021-06-08 10:29:00 Jersey Costello [facility] HEPATITIS B SURFACE 2021-06-08 10:29:00 Real Delgado [facility] HEPATITIS PANEL, ACUTE 2021-06-08 10:29:00 Nathen-Kanwal Frost [facility] POCT-GLUCOSE METER 2021-06-08 06:59:00 Shiela [facility] CBC W/PLT COUNT & AUTO 2021-06-08 05:00:00 [facility] BASIC METABOLIC PANEL (7) 2021-06-08 05:00:00 Samia smith I [facility] MAGNESIUM 2021-06-08 05:00:00 Ahmad [facility] PHOSPHORUS 2021-06-08 05:00:00 [facility] PROTHROMBIN TIME/INR 2021-06-08 05:00:00 Anshul Acharya [facility] VITAMIN B12 2021-06-08 05:00:00 Anshul Acharya [facility] FERRITIN 2021-06-08 05:00:00 Jersey [facility] IRON, TIBC, % SAT. 2021-06-08 05:00:00 Jersey Pravin [facility] (WITHOUT FERRITIN) [facility] VITAMIN D, 25-HYDROXY 2021-06-08 05:00:00 Jersey Costello [facility] CBC W/PLT COUNT & AUTO 2021-06-08 05:00:00 Anshul Acharya [facility] US ABDOMEN LIMITED 2021-06-08 04:51:00 Anshul Acharya [facility] SARS-COV2/RT-PCR ([facility] & 2021-06-07 23:43:00 Angel Saenz [facility] REF LABS) [facility] POCT-GLUCOSE METER 2021-06-07 23:11:00 Shiela [facility] ECG 12-LEAD 2021-06-07 23:06:38 Unknown, Hl7 [facility] ECG 12-LEAD 2021-06-07 23:06:38 Unknown, Hl7 [facility] BLOOD CULTURE 2021-06-07 21:48:00 Anshul Acharya [facility] BLOOD CULTURE 2021-06-07 21:41:00 Anshul Acharya [facility] CBC W/PLT COUNT & AUTO 2021-06-07 21:41:00 Anshul Acharya [facility] COMPREHENSIVE METABOLIC 2021-06-07 21:41:[address] [facility] VANCOMYCIN LEVEL, RANDOM 2021-06-07 21:41:00 Anshul Acharya [facility] CBC W/PLT COUNT & AUTO 2021-06-07 21:41:00 BaileyAnshul knutson [facility] XR CHEST 1 VIEW PORTABLE 2021-06-07 19:59:00 Anshul Acharya [facility] / BEDSIDE [facility] VASCULAR DIAGRAM -SCAN 2021-06-07 00:00:00 Provider, Judah [facility] CARDIAC CATH REPORT - 2021-06-07 00:00:00 Provider, Judah [facility] Scanning [facility] ARRYTHMIA IMPLANT REPORT 2021-06-07 00:00:00 Provider, Judah Sarah [facility] - SCAN Scanning [facility] POCT GLUCOSE (AUTOMATED) 2021-05-22 23:19:[address] [facility] POCT GLUCOSE (AUTOMATED) 2021-05-22 17:36:[address] [facility] POCT GLUCOSE (AUTOMATED) 2021-05-22 13:43:[address] [facility] BASIC METABOLIC PANEL 2021-05-22 09:37:00 José Miguel Horn [facility] (NA, K, CL, CO2, GLUCOSE, Medica l Branch BUN, CREATININE, CA) CBC WITH DIFF 2021-05-22 09:37:00 José Miguel Horn [facility] GLUCOSE 2021-05-21 23:41:00 [facility] PROTEIN TOTAL 2021-05-21 23:41:00 Ricki [facility] LACTATE DEHYDROGENASE 2021-05-21 23:41:00 Candido [facility] TROPONIN I 2021-05-21 23:41:[address] [facility] N-TERMINAL PRO-BNP 2021-05-21 23:41:00 José Miguel Horn [facility] POCT GLUCOSE (AUTOMATED) 2021-05-21 23:14:[address] [facility] POCT GLUCOSE (AUTOMATED) 2021-05-21 16:58:00 [facility] (AUTOMATED) 2021-05-21 13:47:[address] [facility] XR CHEST 1 VW 2021-05-21 13:06:23 Gt [facility] VITAMIN B12, LEVEL 2021-05-21 12:51:00 Gt becky [facility] FOLATE 2021-05-21 12:51:00 Gt [facility] TROPONIN I 2021-05-21 12:51:00 Gt [facility] IRON PANEL 2021-05-21 12:51:00 Gt [facility] VITAMIN D, 25-OH 2021-05-21 12:51:00 Gt [facility] FERRITIN SERUM 2021-05-21 09:32:00 Gt [facility] TROPONIN I 2021-05-21 09:32:00 Gt [facility] HEPATIC FUNCTION PANEL 2021-05-21 09:32:00 Gt becky [facility] ([id number]) (ALB,T.PRO,BILI [facility] T,BU/BC,ALT,AST,ALK PHOS) BASIC METABOLIC PANEL 2021-05-21 09:32:00 José Miguel Horn [facility] (NA, K, CL, CO2, GLUCOSE, Medica l Branch BUN, CREATININE, CA) DIFF CONSULT 2021-05-21 09:32:00 Gt [facility] CBC WITH DIFF 2021-05-21 09:32:00 José Miguel Horn [facility] N-TERMINAL PRO-BNP 2021-05-21 09:32:00 Taina Del Real [facility] POCT GLUCOSE (AUTOMATED) 2021-05-21 02:22:[address] [facility] XR CHEST 1 VW 2021-05-20 22:21:01 Ricki [facility] POCT GLUCOSE (AUTOMATED) 2021-05-20 22:14:[address] [facility] PH, BODY FLUID 2021-05-20 22:04:00 iRcki [facility] T.PROTEIN BODY FLUID 2021-05-20 22:04:00 Ricki [facility] BODY FLUID DIRECT COUNT 2021-05-20 22:04:00 Nemesio Eagle [facility] CYTO PLEURAL FLUID 2021-05-20 22:04:00 Ricki [facility] LDH TOTAL BODY FLUID 2021-05-20 22:04:[address] [facility] AFB CULTURE 2021-05-20 21:50:00 Ricki [facility] BODY FLUID 2021-05-20 21:50:[address] [facility] CULTURE(AEROBIC/ANAEROBIC Medica l Branch ) XR CHEST 1 VW 2021-05-20 19:13:56 Ricki [facility] POCT GLUCOSE (AUTOMATED) 2021-05-20 16:59:[address] [facility] POCT GLUCOSE (AUTOMATED) 2021-05-20 13:25:[address] [facility] LACTATE DEHYDROGENASE 2021-05-20 09:50:00 Holly [facility] BASIC METABOLIC PANEL 2021-05-20 09:50:00 Holly Redding [facility] (NA, K, CL, CO2, GLUCOSE, Medica l Branch BUN, CREATININE, CA) PROTHROMBIN TIME / INR 2021-05-20 09:50:00 Holly Redding [facility] N-TERMINAL PRO-BNP 2021-05-20 09:50:00 Tameka Mcdaniels [facility] POCT GLUCOSE (AUTOMATED) 2021-05-20 01:35:00 Neil Thomas [facility] POCT GLUCOSE (AUTOMATED) 2021-05-19 23:08:00 [facility] ([facility]OM[facility]) 2021-05-19 17:39:00 [facility] PO[facility] GLUCOSE (AUTOMATED) 2021-05-19 14:04:00 Neil Thomas Uni [facility] BASIC METABOLIC PANEL 2021-05-19 11:24:00 [facility] (NA, K, CL, CO2, GLUCOSE, Medica l Branch BUN, CREATININE, CA) CBC WITH DIFF 2021-05-19 11:24:[address] [facility] N-TERMINAL PRO-BNP 2021-05-19 11:24:00 Tameka Mcdaniels [facility] HEPATITIS B SURFACE 2021-05-19 03:18:00 Samantha, [facility] ANTIBODY [facility] HEPATITIS B SURFACE 2021-05-19 03:18:00 Samantha, [facility] ANTIGEN [facility] POCT GLUCOSE (AUTOMATED) 2021-05-19 03:11:00 Neil Thomas Uni [facility] POCT GLUCOSE (AUTOMATED) 2021-05-18 22:43:00 [facility] PO[facility] GLUCOSE (AUTOMATED) 2021-05-18 17:46:00 [facility] POCT GLUCOSE (AUTOMATED) 2021-05-18 17:04:00 Neil Thomas Uni [facility] BASIC METABOLIC PANEL 2021-05-18 15:05:00 Holly Redding [facility] (NA, K, CL, CO2, GLUCOSE, Medica l Branch BUN, CREATININE, CA) POCT GLUCOSE (AUTOMATED) 2021-05-18 13:20:[address] [facility] DISCLOSURE AND CONSENT, 2021-05-18 06:01:00 Doctor Unassigned, N o [facility] MEDICAL AND SURGICAL Name Medical [facility] PROCEDURES POCT GLUCOSE (AUTOMATED) 2021-05-17 22:51:00 William [facility] POCT GLUCOSE (AUTOMATED) 2021-05-17 17:51:00 [facility] TRANSTHORACIC ECHO (TTE) 2021-05-17 15:04:37 Neil Thomas [facility] POCT GLUCOSE (AUTOMATED) 2021-05-17 14:14:00 William [facility] PHOSPHORUS 2021-05-17 10:03:00 William [facility] MAGNESIUM 2021-05-17 10:03:00 William [facility] BASIC METABOLIC PANEL 2021-05-17 10:03:00 William [facility] (NA, K, CL, CO2, GLUCOSE, Medica l Branch BUN, CREATININE, CA) CBC WITHOUT DIFF 2021-05-17 10:03:00 William [facility] N-TERMINAL PRO-BNP 2021-05-17 10:03:00 William [facility] POCT GLUCOSE (AUTOMATED) 2021-05-16 22:34:00 [facility] POCT GLUCOSE (AUTOMATED) 2021-05-16 17:41:00 William [facility] POCT GLUCOSE (AUTOMATED) 2021-05-16 13:39:00 William [facility] MAGNESIUM 2021-05-16 08:09:00 William [facility] TROPONIN I 2021-05-16 08:09:00 William [facility] BASIC METABOLIC PANEL 2021-05-16 08:09:00 William [facility] (NA, K, CL, CO2, GLUCOSE, Medica l Branch BUN, CREATININE, CA) LIPID PANEL ([id number])(TOTAL 2021-05-16 08:09:00 Neil Thomas [facility] CHOLESTEROL, Medical Branch TRIGLYCERIDES, HDL) CBC WITHOUT DIFF 2021-05-16 08:09:00 William [facility] GLYCOSYLATED HEMOGLOBIN 2021-05-16 08:09:00 Thais Rich [facility] (A1C) Medical Branch PHOSPHORUS 2021-05-16 02:06:00 William [facility] TROPONIN I 2021-05-16 02:06:00 William [facility] POCT GLUCOSE (AUTOMATED) 2021-05-16 02:05:[address] [facility] COVID-19 (ID NOW RAPID 2021-05-15 22:31:00 Dangelo Ibrahim [facility] TESTING) Medical Branch LAB ONLY COVID 2021-05-15 22:31:00 Singer [facility] INTERPRETATION [facility] XR KNEE <3 VW RIGHT 2021-05-15 22:12:[address] [facility] CT CHEST PULMONARY 2021-05-15 22:00:00 Singer Dangelo [facility] ANGIOGRAM Medical Branch XR CHEST 1 VW 2021-05-15 20:32:18 Singer [facility] LIPASE 2021-05-15 19:37:00 Singer [facility] MAGNESIUM 2021-05-15 19:37:00 Singer [facility] TROPONIN I 2021-05-15 19:37:00 Singer [facility] THYROID STIMULATING 2021-05-15 19:37:00 William [facility] HORMONE [facility] Branch COMP. METABOLIC PANEL 2021-05-15 19:37:00 Dangelo Ibrahim [facility] ([id number]) Medical Branch CBC WITH DIFF 2021-05-15 19:37:00 Singer [facility] GLYCOSYLATED HEMOGLOBIN 2021-05-15 19:37:00 [facility] / INR 2021-05-15 19:37:00 [facility] 2021-05-15 19:37:00 Dangelo Ibrahim [place] [facility] N-TERMINAL PRO-BNP 2021-05-15 19:37:00 Dangelo Ibrahim [facility] HB ECG ROUTINE & RHYTHM 2021-05-15 19:13:17 Dangelo Ibrahim [facility] NOTICE OF PRIVACY 2021-05-15 18:55:45 Doctor Unassigned, No [facility] CONSENT/REFUSAL FOR 2021-05-15 18:55:20 [facility] Un[facility], [facility] HOSPITAL ADMISSION 2021-05-15 06:01:00 Doctor Unassigned, No [facility] Chest Single View 2019-02-17 00:00:00 [facility] sue Influenza Type A Antigen 2019-02-17 00:00:[address] [facility] oridavid Solomon Screen Influenza Type B Antigen 2019-02-17 00:00:[address] [facility] eugene Solomon Screen Culture & Sensitivity 2019-01-25 00:00:00 Talisha Suarez Chest Pa And Lat (2 2019-01-25 00:00:[address] [facility] [place] [place] Views) Anaerobic Blood Culture 2018-10-09 00:00:00 Dickson Solomon Aerobic Blood Culture 2018-10-09 00:00:00 Talisha Suarez Gram Stain 2018-10-09 00:00:00 [facility] hernandez Anaerobic Culture 2018-10-09 00:00:00 [facility] sue Plan of Care Planned Activity Planned Date Details Comments Source Future Scheduled 2031-07-[address] [facility] colon (procedure) [code = 485261781] Future Scheduled 2031-07-[address] [facility] 00:00:[facility] colon (procedure) [code = 017559484] Future Scheduled 2031-07-[address] [facility] 00:00:00 [facility] colon (procedure) [code = 166697920] Future Scheduled 2031-07-[address] [facility] 00:00:00 [facility] colon (procedure) [code = 277590863] Future Scheduled 2031-07-[address] [facility] 00:00:00 [facility] colon (procedure) [code = 548080763] Future Scheduled 2031-07-[address] [facility] 00:00:00 [facility] colon (procedure) [code = 979453770] Future Scheduled 2023-04-[address] [facility] 00:00:00 [facility] cervix (procedure) [code = 308414941] Future Scheduled 2023-04-[address] [facility] 00:00:00 [facility] cervix (procedure) [code = 007809649] Future Scheduled 2023-04-[address] [facility] 00:00:00 [facility] cervix (procedure) [code = 593900506] Future Scheduled 2023-04-[address] [facility] 00:00:00 [facility] cervix (procedure) [code = 081221806] Future Scheduled 2023-04-[address] [facility] 00:00:00 [facility] cervix (procedure) [code = 081453643] Future Scheduled 2023-04-[address] [facility] 00:00:00 [facility] cervix (procedure) [code = 729234381] Future Scheduled 2023-04-[address] [facility] 00:00:00 [facility] cervix (procedure) [code = 347603030] Future Scheduled 2023-04-[address] [facility] 00:00:00 [facility] cervix (procedure) [code = 958400331] Future Scheduled 2023-04-[address] [facility] 00:00:00 [facility] cervix (procedure) [code = 150396522] Future Scheduled 2023-04-[address] [facility] 00:00:00 [facility] cervix (procedure) [code = 536103172] Future Scheduled 2023-04-[address] [facility] 00[facility]00[facility]00 [facility] [code = 756847881] Future Scheduled 2023-04-[address] [facility] 00:00[facility]00 [facility] (procedure) [code = 754754028] Future Scheduled [address] [...] Future Scheduled 2021-07-08 COVID-19 VACCINE (1) [facility] Test 18:18:56 [code = COVID-19 VACCINE (1)] Future Scheduled 2021-07-08 DIABETES: RETINAL EYE [facility] Test 18:18:56 EXAM [code = DIABETES: RETINAL EYE EXAM] Future Scheduled 2021-07-08 DIABETIC FOOT EXAM [facility] Test 18:18:56 [code = DIABETIC FOOT EXAM] Future Scheduled 2021-07-08 COLONOSCOPY SCREENING [facility] Test 18:18:56 [code = COLONOSCOPY SCREENING] Future Scheduled 2021-07-08 [facility]:18:56 [code = SHINGLES VACCINES (#1)] Future Scheduled 2021-07-08 BREAST CANCER [facility] Test 18:18:56 SCREENING [code = BREAST CANCER SCREENING] Future Scheduled 2021-07-08 [facility] Test 18:18:56 malignant neoplasm of cervix (procedure) [code = 665650554] Future Scheduled 2021-07-08 INFLUENZA VACCINE [facility] Test 18:18:56 [code = INFLUENZA VACCINE] Future Scheduled 2021-06-26 COVID-19 VACCINE (1) [facility] Test 14:10:19 [code = COVID-19 VACCINE (1)] Future Scheduled 2021-06-26 DIABETES: RETINAL EYE Me [facility] Test 14:10:19 EXAM [code = DIABETES: RETINAL EYE EXAM] Future Scheduled 2021-06-26 DIABETIC FOOT EXAM [facility] Test 14:10:19 [code = DIABETIC FOOT EXAM] Future Scheduled 2021-06-26 COLONOSCOPY SCREENING [facility] Test 14:10:19 [code = COLONOSCOPY SCREENING] Future Scheduled 2021-06-26 SHINGLES VACCINES (#1) [facility] Test 14:10:19 [code = SHINGLES VACCINES (#1)] Future Scheduled 2021-06-26 BREAST CANCER [facility] Test 14:10:19 SCREENING [code = BREAST CANCER SCREENING] Future Scheduled 2021-06-26 Scre[facility] Test 14:10:19 malignant neoplasm of cervix (procedure) [code = 802098488] Future Scheduled 2021-06-26 INFLUENZA VACCINE [facility] Test 14:10:19 [code = INFLUENZA VACCINE] Future Scheduled 2021-06-26 COVID-19 VACCINE (1) [facility] Test 14:10:19 [code = COVID-19 VACCINE (1)] Future Scheduled 2021-06-26 DIABETES: RETINAL EYE [facility] Test 14:10:19 EXAM [code = DIABETES: RETINAL EYE EXAM] Future Scheduled 2021-06-26 DIABETIC FOOT EXAM [facility] Test 14:10:19 [code = DIABETIC FOOT EXAM] Future Scheduled 2021-06-26 COLONOSCOPY SCREENING [facility] Test 14:10:19 [code = COLONOSCOPY SCREENING] Future Scheduled 2021-06-26 SHINGLES VACCINES (#1) [facility] Test 14:10:19 [code = SHINGLES VACCINES (#1)] Future Scheduled 2021-06-26 BREAST CANCER [facility] Test 14:10:19 SCREENING [code = BREAST CANCER SCREENING] Future Scheduled 2021-06-26 [facility] Test 14:10:19 malignant neoplasm of cervix (procedure) [code = 243472246] Future Scheduled 2021-06-26 INFLUENZA VACCINE [facility] Test 14:10:19 [code = INFLUENZA VACCINE] Future Scheduled 2021-06-26 COVID-19 VACCINE (1) [facility] Test 14:10:19 [code = COVID-19 VACCINE (1)] Future Scheduled 2021-06-26 DIABETES: RETINAL EYE [facility] Test 14:10:19 EXAM [code = DIABETES: RETINAL EYE EXAM] Future Scheduled 2021-06-26 DIABETIC FOOT EXAM [facility] Test 14:10:19 [code = DIABETIC FOOT EXAM] Future Scheduled 2021-06-26 COLONOSCOPY SCREENING [facility] Test 14:10:19 [code = COLONOSCOPY SCREENING] Future Scheduled 2021-06-26 SHINGLES VACCINES (#1) [facility] Test 14:10:19 [code = SHINGLES VACCINES (#1)] Future Scheduled 2021-06-26 BREAST CANCER [facility] Test 14:10:19 SCREENING [code = BREAST CANCER SCREENING] Future Scheduled 2021-06-26 Screening for [facility] Test 14:10:19 malignant neoplasm of cervix (procedure) [code = 141382214] Future Scheduled 2021-06-26 INFLUENZA VACCINE [facility] Test 14:10:19 [code = INFLUENZA VACCINE] Future Scheduled 2021-06-26 COVID-19 VACCINE (1) [facility] Test 14:10:19 [code = COVID-19 VACCINE (1)] Future Scheduled 2021-06-26 DIABETES: RETINAL EYE [facility] Test 14:10:19 EXAM [code = DIABETES: RETINAL EYE EXAM] Future Scheduled 2021-06-26 DIABETIC FOOT EXAM [facility] Test 14:10:19 [code = DIABETIC FOOT EXAM] Future Scheduled 2021-06-26 COLONOSCOPY SCREENING [facility] Test 14:10:19 [code = COLONOSCOPY SCREENING] Future Scheduled 2021-06-26 SHINGLES VACCINES (#1) [facility] Test 14:10:19 [code = SHINGLES VACCINES (#1)] Future Scheduled 2021-06-26 BREAST CANCER [facility] Test 14:10:19 SCREENING [code = BREAST CANCER SCREENING] Future Scheduled 2021-06-26 [facility] Test 14:10:19 malignant neoplasm of cervix (procedure) [code = 926450593] Future Scheduled 2021-06-26 INFLUENZA VACCINE [facility] Test 14:10:19 [code = INFLUENZA VACCINE] Future Scheduled 2021-06-26 COVID-19 VACCINE (1) [facility] Test 14:10:19 [code = COVID-19 VACCINE (1)] Future Scheduled 2021-06-26 DIABETES: RETINAL EYE [facility] Test 14:10:19 EXAM [code = DIABETES: RETINAL EYE EXAM] Future Scheduled 2021-06-26 DIABETIC FOOT EXAM [facility] Test 14:10:19 [code = DIABETIC FOOT EXAM] Future Scheduled 2021-06-26 COLONOSCOPY SCREENING [facility] Test 14:10:19 [code = COLONOSCOPY SCREENING] Future Scheduled 2021-06-26 SHINGLES VACCINES (#1) [facility] Test 14:10:19 [code = SHINGLES VACCINES (#1)] Future Scheduled 2021-06-26 BREAST CANCER [facility] Test 14:10:19 SCREENING [code = BREAST CANCER SCREENING] Future Scheduled 2021-06-26 Screening for [facility] Test 14:10:19 malignant neoplasm of cervix (procedure) [code = 044118665] Future Scheduled 2021-06-26 INFLUENZA VACCINE [facility] Test 14:10:19 [code = INFLUENZA VACCINE] Future Scheduled 2021-06-26 COVID-19 VACCINE (1) [facility] Test 14:10:19 [code = COVID-19 VACCINE (1)] Future Scheduled 2021-06-26 DIABETES: RETINAL EYE [facility] Test 14:10:19 EXAM [code = DIABETES: RETINAL EYE EXAM] Future Scheduled 2021-06-26 DIABETIC FOOT EXAM [facility] Test 14:10:19 [code = DIABETIC FOOT EXAM] Future Scheduled 2021-06-26 COLONOSCOPY SCREENING [facility] Test 14:10:19 [code = COLONOSCOPY SCREENING] Future Scheduled 2021-06-26 SHINGLES VACCINES (#1) [facility] Test 14:10:19 [code = SHINGLES VACCINES (#1)] Future Scheduled 2021-06-26 BREAST CANCER [facility] Test 14:10:19 SCREENING [code = BREAST CANCER SCREENING] Future Scheduled 2021-06-26 [facility] Test 14:10:19 malignant neoplasm of cervix (procedure) [code = 872832296] Future Scheduled 2021-06-26 INFLUENZA VACCINE [facility] Test 14:10:19 [code = INFLUENZA VACCINE] Future Scheduled 2021-06-26 COVID-19 VACCINE (1) [facility] Test 14:10:19 [code = COVID-19 VACCINE (1)] Future Scheduled 2021-06-26 DIABETES: RETINAL EYE [facility] Test 14:10:19 EXAM [code = DIABETES: RETINAL EYE EXAM] Future Scheduled 2021-06-26 DIABETIC FOOT EXAM [facility] Test 14:10:19 [code = DIABETIC FOOT EXAM] Future Scheduled 2021-06-26 COLONOSCOPY SCREENING [facility] Test 14:10:19 [code = COLONOSCOPY SCREENING] Future Scheduled 2021-06-26 SHINGLES VACCINES (#1) [facility] Test 14:10:19 [code = SHINGLES VACCINES (#1)] Future Scheduled 2021-06-26 BREAST CANCER [facility] Test 14:10:19 SCREENING [code = BREAST CANCER SCREENING] Future Scheduled 2021-06-26 Screening for [facility] Test 14:10:19 malignant neoplasm of cervix (procedure) [code = 996448940] Future Scheduled 2021-06-26 INFLUENZA VACCINE [facility] Test 14:10:19 [code = INFLUENZA VACCINE] Future Scheduled 2021-06-26 COVID-19 VACCINE (1) [facility] Test 14:10:19 [code = COVID-19 VACCINE (1)] Future Scheduled 2021-06-26 DIABETES: RETINAL EYE [facility] Test 14:10:19 EXAM [code = DIABETES: RETINAL EYE EXAM] Future Scheduled 2021-06-26 DIABETIC FOOT EXAM [facility] Test 14:10:19 [code = DIABETIC FOOT EXAM] Future Scheduled 2021-06-26 COLONOSCOPY SCREENING [facility] Test 14:10:19 [code = COLONOSCOPY SCREENING] Future Scheduled 2021-06-26 SHINGLES VACCINES (#1) [facility] Test 14:10:19 [code = SHINGLES VACCINES (#1)] Future Scheduled 2021-06-26 BREAST CANCER [facility] Test 14:10:19 SCREENING [code = BREAST CANCER SCREENING] Future Scheduled 2021-06-26 Screening for [facility] Test 14:10:19 malignant neoplasm of cervix (procedure) [code = 721938560] Future Scheduled 2021-06-26 INFLUENZA VACCINE [facility] Test 14:10:19 [code = INFLUENZA VACCINE] Future Scheduled 2021-06-26 COVID-19 VACCINE (1) [facility] Test 14:10:19 [code = COVID-19 VACCINE (1)] Future Scheduled 2021-06-26 DIABETES: RETINAL EYE [facility] Test 14:10:19 EXAM [code = DIABETES: RETINAL EYE EXAM] Future Scheduled 2021-06-26 DIABETIC FOOT EXAM [facility] Test 14:10:19 [code = DIABETIC FOOT EXAM] Future Scheduled 2021-06-26 COLONOSCOPY SCREENING [facility] Test 14:10:19 [code = COLONOSCOPY SCREENING] Future Scheduled 2021-06-26 SHINGLES VACCINES (#1) [facility] Test 14:10:19 [code = SHINGLES VACCINES (#1)] Future Scheduled 2021-06-26 BREAST CANCER [facility] Test 14:10:19 SCREENING [code = BREAST CANCER SCREENING] Future Scheduled 2021-06-26 Screening for [facility] Test 14:10:19 malignant neoplasm of cervix (procedure) [code = 094258115] Future Scheduled 2021-06-26 INFLUENZA VACCINE [facility] Test 14:10:19 [code = INFLUENZA VACCINE] Future Scheduled 2021-06-[address] [facility] 00:[facility]:00 (procedure) [code = [facility] 43204545] Future Scheduled 2021-06-[address] [facility] 00:00:00 (procedure) [code = [facility] 26569470] Future Scheduled 2021-06-[address] [facility] 00:00:00 (procedure) [code = [facility] 45523418] Future Scheduled 2021-06-[address] [facility] 00:00:00 (procedure) [code = [facility] 19023494] Future Scheduled 2021-06-[address] [facility] 00:00:00 (procedure) [code = [facility] 42544570] Future Scheduled 2021-06-[address] [facility] 00:00:00 (procedure) [code = [facility] 34890208] Future Scheduled 2021-06-[address] [facility] 00:00:00 (procedure) [code = [facility] 18460924] Future Scheduled 2021-06-[address] [facility] 00:00:00 (procedure) [code = [facility] 33569324] Future Scheduled 2021-06-[address] [facility] 00:00:00 (procedure) [code = [facility] 72154783] Future Scheduled 2021-06-[address] [facility] 00:00:00 (procedure) [code = [facility] 67227969] Future Scheduled 2021-06-[address] [facility] 00:00:00 (procedure) [code = [facility] 60420371] Future Scheduled 2021-06-[address] [facility] Test 00:00:00 (procedure) [code = [facility] 09091592] Future Scheduled 2021-06-10 COVID-19 VACCINE (1) [facility] Test 17:58:22 [code = COVID-19 VACCINE (1)] Future Scheduled 2021-06-10 DIABETES: RETINAL EYE [facility] Test 17:58:22 EXAM [code = DIABETES: RETINAL EYE EXAM] Future Scheduled 2021-06-10 DIABETIC FOOT EXAM [facility] Test 17:58:22 [code = DIABETIC FOOT EXAM] Future Scheduled 2021-06-10 COLONOSCOPY SCREENING [facility] Test 17:58:22 [code = COLONOSCOPY SCREENING] Future Scheduled 2021-06-10 SHINGLES VACCINES (#1) [facility] Test 17:58:22 [code = SHINGLES VACCINES (#1)] Future Scheduled 2021-06-10 BREAST CANCER [facility] Test 17:58:22 SCREENING [code = BREAST CANCER SCREENING] Future Scheduled 2021-06-10 Screening for [facility] Test 17:58:22 malignant neoplasm of cervix (procedure) [code = 379370613] Future Scheduled 2021-06-10 INFLUENZA VACCINE [facility] Test 17:58:22 [code = INFLUENZA VACCINE] Future Scheduled 2021-05-12 COVID-19 VACCINE (1) [facility] Test 00:12:28 [code = COVID-19 VACCINE (1)] Future Scheduled 2021-05-12 DIABETES: RETINAL EYE [facility] Test 00:12:28 EXAM [code = DIABETES: RETINAL EYE EXAM] Future Scheduled 2021-05-12 [facility] 00:12:28 [code = DIABETIC FOOT EXAM] Future Scheduled 2021-05-12 COLONOSCOPY SCREENING [facility] Test 00:12:28 [code = COLONOSCOPY SCREENING] Future Scheduled 2021-05-12 [facility]IN[facility] 00:12:28 [code = SHINGLES VACCINES (#1)] Future Scheduled 2021-05-12 BREAST CANCER [facility] Test 00:12:28 SCREENING [code = BREAST CANCER SCREENING] Future Scheduled 2021-05-12 Scre[facility] for [facility] Test 00:12:28 malignant neoplasm of cervix (procedure) [code = 818448599] Future Scheduled 2021-05-12 INFLUENZA VACCINE [facility] Test 00:12:28 [code = INFLUENZA VACCINE] [...] Future Scheduled 2021-02-11 COVID-19 VACCINE (1) [facility] Test 13:55:42 [code = COVID-19 VACCINE (1)] Future Scheduled 2021-02-11 DIABETES: RETINAL EYE [facility] Test 13:55:42 EXAM [code = DIABETES: RETINAL EYE EXAM] Future Scheduled 2021-02-11 DIABETIC FOOT EXAM [facility] Test 13:55:42 [code = DIABETIC FOOT EXAM] Future Scheduled 2021-02-11 COLONOSCOPY SCREENING [facility] Test 13:55:42 [code = COLONOSCOPY SCREENING] Future Scheduled 2021-02-11 SHINGLES VACCINES (#1) [facility] Test 13:55:42 [code = SHINGLES VACCINES (#1)] Future Scheduled 2021-02-11 BREAST CANCER [facility] Test 13:55:42 SCREENING [code = BREAST CANCER SCREENING] Future Scheduled 2021-02-11 Screening for [facility] Test 13:55:42 malignant neoplasm of cervix (procedure) [code = 163048656] Future Scheduled 2021-02-11 INFLUENZA VACCINE Method ist [...] [facility]c [facility]00 [facility] [code = 75102510] Future Scheduled 2020-08-[address] [facility] 00[facility]00 [facility] (procedure) [code = 52165847] Future Scheduled 2020-08-[address] [facility] (procedure) [code = 66959465] Future Scheduled 2020-08-[address] [facility]00 [facility] (procedure) [code = 75957524] Future Scheduled 2020-08-[address] [facility] (procedure) [code = 86146376] Future Scheduled 2020-08-[address] [facility]00 [facility] (procedure) [code = 29800589] Future Scheduled 2020-08-[address] [facility] (procedure) [code = 48931728] Future Scheduled 2020-08-[address] [facility]:00 measurement [facility] (procedure) [code = 61069281] Future Scheduled 2020-08-[address] [facility]00 [facility] (procedure) [code = 99474490] Future Scheduled 2020-08-[address] [facility]00 [facility] (procedure) [code = 78444796] Future Scheduled 2020-08-[address] [facility]:00 [facility] (procedure) [code = 33953536] Future Scheduled 2020-08-[address] [facility] (procedure) [code = 14623548] Future Scheduled 2019-11-[address] [facility]00 [facility] breast (procedure) [code = 897265161] Future Scheduled 2019-11-[address] [facility] 00:00:00 [facility] breast (procedure) [code = 305190895] Future Scheduled 2019-11-[address] [facility] 00:00:00 [facility] breast (procedure) [code = 126309899] Future Scheduled 2019-11-[address] [facility] 00:00:00 [facility] breast (procedure) [code = 110585249] Future Scheduled 2019-11-[address] [facility] 00:00:00 [facility] breast (procedure) [code = 497120138] Future Scheduled 2019-11-[address] [facility] 00:00:00 [facility] breast (procedure) [code = 685879207] Future Scheduled 2019-11-[address] [facility] 00:00:00 [facility] breast (procedure) [code = 289522140] Future Scheduled 2019-11-[address] [facility] 00:00:00 [facility] breast (procedure) [code = 252859740] Future Scheduled 2019-11-[address] [facility] 00:00:00 [facility] breast (procedure) [code = 207103171] Future Scheduled 2019-11-[address] [facility] 00:00:00 [facility] breast (procedure) [code = 340628748] Future Scheduled 2019-11-[address] [facility] 00:00:00 [facility] breast (procedure) [code = 247917861] Future Scheduled 2019-11-[address] [facility] 00:00:00 [facility] breast (procedure) [code = 202566683] Future Scheduled 2018-06-[address] [...] 00:00:00 examination Medical Center (regime/therapy) [code = 754576613] Future Scheduled 1967-09-05 Urine screening for [facility] Test 00:00:00 protein (procedure) Medical Center [code = 602830652] Future Scheduled 1967-09-[address] DIAB[address] EYE EXAM [facility] Test 00:00:00 [code = DIABETIC EYE Medical Center EXAM] Future Scheduled 1967-09-[address] [facility] 00:00:00 examination Medical Center (regime/therapy) [code = 874667112] Future Scheduled 1967-09-05 Urine screening for [facility] Test 00:00:00 protein (procedure) Medical Center [code = 711939092] Future Scheduled 1967-09-[address] DIAB[address] EYE EXAM [facility] Test 00:00:00 [code = DIABETIC EYE Medical Center EXAM] Future Scheduled 1967-09-[address] [facility] 00:00:00 examination Medical Center (regime/therapy) [code = 002204186] Future Scheduled 1967-09-05 Urine screening for [facility] Test 00:00:00 protein (procedure) Medical Center [code = 308942579] Future Scheduled 1967-09-[address] DIABETIC EYE EXAM [facility] Test 00:00:00 [code = DIABETIC EYE Medical Center EXAM] Future Scheduled 1967-09-[address] [facility] 00:00:00 examination Medical Center (regime/therapy) [code = 099869295] Future Scheduled 1967-09-05 Urine screening for [facility] Test 00:00:00 protein (procedure) [facility] [code = 167867237] Future Scheduled 1967-09-[address] [facility] 00:00:00 [code = DIABETIC EYE [facility] EXAM] Future Scheduled 1967-09-[address] [facility] examination [facility] (regime/therapy) [code = 993903438] Future Scheduled 1967-09-05 Urine screening for [facility] 00:00:00 protein (procedure) [facility] [code = 681211889] Future Scheduled 1967-09-[address] [facility] 00:00:00 [code = DIABETIC EYE [facility] EXAM] Future Scheduled 1967-09-[address] [facility]00 examination [facility] Center (regime/therapy) [code = 000387742] Future Scheduled 1967-09-05 Urine screening for [facility] 00:00:00 protein (procedure) [facility] [code = 220035865] Future Scheduled 1967-09-[address] [facility] 00:00:00 [code = DIABETIC EYE [facility] EXAM] Future Scheduled 1967-09-[address] [facility] 00:[facility]00 examination [facility] (regime/therapy) [code = 481352327] Future Scheduled 1967-09-05 Urine screening for [facility] 00:00:00 protein (procedure) [facility] [code = 640687756] Future Scheduled 1967-09-[address] [facility] 00:00:00 [code = DIABETIC EYE [facility] EXAM] Future Scheduled 1967-09-[address] [facility] 00:[facility]:00 examination [facility] (regime/therapy) [code = 021274529] Future Scheduled 1967-09-05 Urine screening for [facility] 00:00:00 protein (procedure) [facility] [code = 924092315] Future Scheduled 1967-09-[address] [facility] 00:00:00 [code = DIABETIC EYE [facility] EXAM] Future Scheduled 1967-09-[address] [facility] 00:[facility]:00 examination [facility] (regime/therapy) [code = 046540192] Future Scheduled 1967-09-05 Urine screening for [facility] 00:00:00 protein (procedure) [facility] [code = 543178414] Future Scheduled 1967-09-[address] EX[address] [facility] 00:00:00 [code = DIABETIC EYE [facility] EXAM] Future Scheduled 1967-09-[address] [facility] 00:[facility]:00 examination [facility] (regime/therapy) [code = 722146151] Future Scheduled 1967-09-05 Urine screening for [facility] 00:00:00 protein (procedure) [facility] [code = 794892764] Future Scheduled 1967-09-[address] EX[address] [facility] 00:00:00 [code = DIABETIC EYE [facility] EXAM] Future Scheduled 1967-09-[address] [facility] 00:[facility]:00 examination [facility] (regime/therapy) [code = 953069733] Future Scheduled 1967-09-05 Urine screening for [facility] 00:00:00 protein (procedure) [facility] [code = 991778902] Future Scheduled 1967-09-[address] EXAM [facility] 00:00:00 [code = DIABETIC EYE [facility] EXAM] Future Scheduled 1967-09-[address] [facility] 00:00:00 examination [facility] Center (regime/therapy) [code = 618934007] Future Scheduled 1967-09-05 Urine screening for [facility] 00:00:00 protein (procedure) [facility] [code = 480446740] Future Scheduled [address] [facility] 00:00:00 malignant neoplasm of [facility] colon (procedure) [code = 143260952] Future Scheduled [address] [facility] 00:00:00 [facility] colon (procedure) [code = 572338126] Future Scheduled [address] [facility] 00:00:00 malignant [facility] colon (procedure) [code = 504994366] Future Scheduled [address] [facility] 00:[facility]:00 (combo) [code = CT Medical C enter Colonography (combo)] Future Scheduled [address] [facility] 00:00:00 [facility] colon (procedure) [code = 739684645] Future Scheduled [address] [facility] 00:00:00 [facility] colon (procedure) [code = 249901251] Future Scheduled [address] [facility] 00:00:00 [facility] colon (procedure) [code = 106578062] Future Scheduled [address] [facility] 00:00:00 malignant ne[facility] of [facility] colon (procedure) [code = 811403530] Future Scheduled 1957 Sigmoidoscopy [facility] Future Scheduled [address] [facility] 00:00:00 (combo) [code = CT Medical C enter Colonography (combo)] Future Scheduled [address] [facility] 00:00:00 [facility] colon (procedure) [code = 381738904] Future Scheduled [address] [facility] 00:00:00 [facility] colon (procedure) [code = 103549548] Future Scheduled [address] [facility] 00:00:00 malignant ne[facility] of [facility] colon (procedure) [code = 938345519] Future Scheduled [address] [facility] 00:00:00 malignant [facility] colon (procedure) [code = 255975134] Future Scheduled 1957 S[facility]oidoscopy [facility] Future Scheduled [address] [facility] 00:00:00 (combo) [code = CT Medical C enter Colonography (combo)] Future Scheduled [address] [facility] 00:00:00 malignant [facility] colon (procedure) [code = 365484085] Future Scheduled [address] [facility] 00:00:00 malignant ne[facility] of [facility] colon (procedure) [code = 250897394] Future Scheduled [address] [facility] 00:00:00 malignant [facility] colon (procedure) [code = 752456993] Future Scheduled [address] [facility] 00:00:00 [facility] colon (procedure) [code = 521025752] Future Scheduled 1957 Sigmoidoscopy [facility] Future Scheduled [address] [facility] 00:00:00 (combo) [code = CT Medical C enter Colonography (combo)] Future Scheduled [address] [facility] 00:00:00 [facility] colon (procedure) [code = 433111882] Future Scheduled [address] [facility] 00:00:00 malignant ne[facility] colon (procedure) [code = 065784541] Future Scheduled [address] [facility] 00:00:00 malignant ne[facility] colon (procedure) [code = 633255702] Future Scheduled [address] [facility] 00:00:00 malignant [facility] colon (procedure) [code = 795590407] Future Scheduled 1957 Sigmoidoscopy [facility]] [facility] Future Scheduled [address] [facility] 00:00:00 (combo) [code = CT Medical C enter Colonography (combo)] Future Scheduled [address] [facility] 00:00:00 malignant [facility] colon (procedure) [code = 085026808] Future Scheduled [address] [facility] 00:00:00 malignant ne[facility] colon (procedure) [code = 972294205] Future Scheduled 1957 Sigmoidoscopy [facility]code [facility]oscopy] [facility] Future Scheduled [address] [facility] 00:00:00 (combo) [code = CT Medical C enter Colonography (combo)] Future Scheduled [address] [facility] 00:00:00 malignant neoplasm of [facility] colon (procedure) [code = 358042572] Future Scheduled [address] [facility] 00:00:00 malignant neoplasm of [facility] colon (procedure) [code = 693150409] Future Scheduled 1957 Sigmoidoscopy [facility]] Medical Isaele r Future Scheduled [address] [facility] 00:00:00 (combo) [code = CT Medical C enter Colonography (combo)] Future Scheduled [address] [facility] 00[facility]00:00 malignant ne[facility] colon (procedure) [code = 703045456] Future Scheduled [address] [facility] 00:00:00 malignant neoplasm of [facility] colon (procedure) [code = 935231918] Future Scheduled 1957 Sigmoidoscopy [facility]code [facility]] Medical Isaele r Future Scheduled [address] [facility] 00:00:00 malignant neoplasm of [facility] colon (procedure) [code = 304978025] Future Scheduled [address] [facility] 00:00:00 malignant neoplasm of [facility] Center colon (procedure) [code = 089972872] Encounters Start End Encounter Admission Attending Care Care Encounter Source Date/Time Date/Time Type Type Clinicians Facility Department ID 2021-07-06 Inpatient SHASHANK CONTIRaginiRADHA CROFT Surgery [id number] [facility] 14:33:12 HARSHINIE 2021-07-06 Hospital [facility] Gastro [id number] [facility] 00:00:00 [facility] 2018-09-18 Outpatient [facility] [id number] [facility] 08:26:04 2021-11-27 2021-11-[address] [facility] [id number] [facility] 15:00:00 15:00:00 ROGER ARAUJO [id number] [facility] 2021-11-27 2021-11-[address] [facility] [id number] Univers 15:00:00 15:00:00 ROGER ARAUJO [facility] 2021-11-16 2021-11-16 [facility] [id number] Univers 00:00:00 00:00:00 Robert GARCIA [id number] i ty [facility] [id number] [phone] Nh dical NAL 044 [facility] 2021-11-10 2021-11-[address] [facility] [id number] Univers 08:00:00 08:00:00 ROGER ARAUJO [facility] 2021-10-21 2021-10-21 Orders Doctor KRZYSZTOF [id number] Univers 00:00:00 00:00:00 Only Unassigned, DEEDEE [id number] ity of [place] [facility] [id number] Socrates as [phone] [address] 2021-10-20 2021-10-20 Telephone [facility] [id number] Univers 00:00:00 00:00:00 Brenda GARCIA [id number] ity of [id number] [phone] Nh dical NAL 059 [facility] 2021-08-07 2021-08-07 Outpatient SHASHANK MENDIOLA [facility] [id number] [facility] 00:00:00 00:00:00 NADYA 2021-06-07 2021-07-04 Inpatient LOGAN ZAPATA [facility] Surgery [id number] [facility] 19:44:00 14:34:00 2021-07-03 2021-07-[address] BeronicaJD [facility] [id number] [facility] 15:05:00 16:05:00 Angela Torres [facility] 2021-07-03 2021-07-[address] MitchelTyrel [id number] 14:49:00 15:35:00 Event [facility] 2021-06-30 2021-06-30 Surgery Krzysztof Dodd [facility] [id number] 19:35:00 22:24:00 [facility] 2021-06-26 2021-06-26 Surgery Krzysztof Dodd [facility] [id number] 07:30:00 11:59:00 [facility] 2021-06-25 2021-06-25 Anesthesia Marissa [facility] [id number] 23:59:59 23:59:59 Event Fadia [facility] 2021-06-18 2021-06-18 Anesthesia [place], Asad Valentine [facility] [id number] [facility] 07:58:00 14:52:00 Event Vahid Link [facility] 2021-06-18 2021-06-18 Surgery RussoLogan [facility] [id number] 08:00:00 14:45:00 [facility] 2021-06-16 2021-06-16 Anesthesia Sade Arguetaf [facility] [id number] 11:58:00 13:03:00 [facility] 2021-06-16 2021-06-16 Surgery Donte [facility] [id number] 10:30:00 12:00:00 [facility] 2021-06-09 2021-06-09 Outpatient M [facility] [id number] [facility] 00:00:00 23:59:00 [facility] 2021-06-07 2021-06-07 Outpatient BCM BCM [id number] [facility] 19:44:00 23:59:00 [facility] 2021-06-07 2021-06-07 Orders [facility] [id number] 00:00:00 00:00:00 [facility] 2021-06-07 2021-06-07 Travel [facility] [id number] [facility] 00:[facility] 00:00:00 [facility] 2021-05-26 2021-05-26 Transition DAKOTA Bennett [id number] Univers 00:00:00 00:00:00 of Care Rakan B [place] [id number] [id number] [phone] [facility] [address] 2021-05-26 2021-05-26 Telephone Tristan [facility] [id number] 00:00:00 00:00:00 [facility] 2021-05-25 2021-05-25 Transition DAKOTA Bennett [id number] [id number] Univers 00:00:00 00:00:00 of Care Rakan B [place] [id number] [id number] [phone] [facility] [address] 2021-05-15 2021-05-22 [facility] Dangelo Ibrahim [facility] 1.2.840.1 [id number] Univers 13:03:00 21:15:00 Encounter Neil Thomas [id number] ity of [id number] [phone] [facility] [address] 2021-05-15 2021-05-22 Inpatient X WILLIAM VAJOHN NILESH [id number] Univers 13:03:00 21:15:00 NEIL nuñez of [facility] 2020-08-28 2020-08-28 Orders Fuentes [facility] [id number] 00:00:00 00:00:[address] [facility] 2020-08-28 2020-08-28 Abstract Fuentes [facility] [id number] 00:00:00 00:00:00 [facility] 2020-08-06 2020-08-06 Telephone Freddie [facility] [id number] 00:00:00 00:00:00 [facility] 2020-08-06 2020-08-06 [facility] [id number] 00:00:00 00:00:00 [facility] 2020-08-06 2020-08-06 Abstract [facility] [id number] 00:00:00 00:00:00 [facility] 2020-08-04 2020-08-04 [facility] [id number] 00:00:00 00:00:00 [facility] 2020-07-28 2020-07-28 Documentcalli [facility] [id number] 00:00:00 00:00:00 [facility] 2020-07-28 2020-07-28 [facility] [id number] 00:00:00 00:00:00 [facility] 2020-07-25 2020-07-25 Documentcalli [facility] [id number] 00:00:00 00:00:00 [facility] 2020-07-24 2020-07-24 Documentcalli Frazier, [facility] [id number] 00:00:00 00:00:00 [facility] 2020-07-24 2020-07-24 Documentcalli [facility] [id number] 00:00:00 00:00:00 [facility] 2020-07-24 2020-07-24 Abstract Frazier, [facility] [id number] 00:00:00 00:00:00 [facility] 2020-04-16 2020-04-16 Office Kim [facility] [id number] 12:56:21 13:26:21 Visit Pascale Garcia [id number] Aurelia .2.7.2.686 Carmelina [id number] [address] 2019-02-18 2019-02-19 Discharged Fidel Lenoardo. [id number] [facility] 03:46:00 22:27:00 [facility] 2019-01-26 2019-01-26 Departed Fidel Leonardo. [id number] [facility] 01:39:00 06:10:00 [facility] EMERGENCY DEPT 2018-10-09 2018-10-11 Discharged Fidel Leonardo. [id number] [facility] 09:44:00 21:45:00 [facility] [place] Patsy nn 2018-01-22 2018-01-22 Emergency E [facility]SE [facility] [id number] [facility] 16:17:00 16:17:[address] [facility] Results Test Description Test Time Test Comments Results Result Comments Source AFB CULTURE + SMEAR (NON-SPUTUM) 2021-08-07 10:55:07 Test Item Value Reference Range Interpretation Comme nts CULTURE (BEAKER) (test code = 1095) No acid-fast bacilli isolated i n 42 days AFB SMEAR (BEAKER) (test code = 994) No acid fast bacilli seen Fungus culture + [id number] 01:03:45 Test Item Value Reference Range Interpretation Comments Result (test code = No fungus isolated in 6463-4) 28 days Fungus Smear (test No fungi seen code = 1406[facility] [id number] 01:03:45 Test Item Value Reference Range Interpretation Comments Result (test code = No fungus isolated in 6463-4) 28 days Fungus Smear (test No fungi seen code = 1406) [facility] + [id number] 01:03:45 Test Item Value Reference Range Interpretation Comments CULTURE (BEAKER) (test No fungus isolated in code = 1095) 28 days FUNGUS SMEAR (BEAKER) No fungi seen (test code = 1406) TISSUE [id number] 12:44:09Surgical Pathology Report Case: [id number] Authorizing Provider: Logan Russo MD Collected: 06/18/2021 11:41 AM Ordering Location: [facility] LUIS FERNANDO ABREU Received: 06/19/2021 03:44 [...] IS RECOMMENDED. Signing Pathologist Direct Phone Line: [phone] signed by Tom Paige MD on 06/24/2021 at 3:29 [id number], [id number] valvePerformed.The interpretation of this case included the use of immunohistochemistry or special stains.PRASHANT ROMERO AND ZAIN JOHNSONS, AFBControl Slides Examined: In-house known positive controls were evaluated along with the test tissue. These control slides run alongside of the patients sample show appropriate staining. Internal positive and negative controls when available are evaluated Immunohistochemistry technical testing was performed at [facility], Pathology Laboratory where it was developed and [...] qualified to perform high complexity clinical laboratory testing.[facility], Department of Pathology, [address] [place] [address] 12[address], [facility], [address] [place] [address] 0[address], [facility], [facility] of Pathology, [address] [place] [address] 5[address], a. Received in formalin labeled with the patient's information and "mitral valve mass" is a 1.5 cm in length by 0.3 cm in diameter robert-pink tissue, which is submitted in toto in cassette A1.MP (resident)Tissue [id number] 09:50:09 Test Item Value Reference Range Interpretation Comments Case Report (test code Surgical Pathology = 104) Report Case: [id number] Authorizing Provider: Angela Loco Collected: 07/03/2021 03:04 PM MD Brian Ordering Location: [address] Received: 07/06/2021 09:08 AM Service Pathologist: [...] clip x 1 DIAGNOSIS (test code = [id number] 3220) FuZzEwMzNcZnRuYmpcdWMx IHtccnRmMVxlcGljOTYwMV vsetSbKVUdzZRlY7Wtuixm XTxmSC1aDN6xrOwvjMIkrE HtAIWyVkOpz0xwm907oJKx z5nsNYYNsmeqfKk4tRalM3 9by9P7LejeJ55rnLRtSBC5 MEWeNQQmgTQtJYWzYMV6LJ LpeKDyK7asHBFqAS5jvgxn BHbwYCpuEGDdxSZ4HBCifZ NdM7QgBVCcPIelICBjznt7 RiQnAv9oxJZfkWnrIZaaVS ExPXAcKScaUCFeLrXvZL4p P46OP12aTSJOY5GYNMOFQT fRKKOOIV4AL6w3BGQrdcWb LSAgVFVCVUxBUiBBREVOT0 1KFJBbwrtpRQXvZk7pW70F U03oZKLBB0fVW4ULO6OQAT hNYcOBZ1xOBYbcKexPLAMU QqcxRJAmWG8qGY2UJVGOWY vHESGDNIrEZC8DQrUTFiPE RNFXQWPKIXJQQD5BAEGamM FyICAtICBORUdBVElWRSBG I6CsHOzEAK5CSmQEMBUUAJ WFOFIDTRKpY3YtFFSPIUoV PU3OIJloBUKpuBVrEZXpDR VDJZ8NQVHUDRdLFM8NB9BK IvRYZrrbTC0VAMFzJMPTC0 BTWTpccGFyICAtICBNVUxU SVBMRSBGUkFHTUVOVFMgT0 KrTCLAKAeUEtPHRKKRE38V XHBhciAgLSAgTkVHQVRJVk LiYs8EQFnIP3miN8PSNBSr NXbREWnOO7pRYX5IOH9XEY hBCyRCZ9nytEDkYARzkwFe vDHoRXIpPREGEF5ELELMJk SUA4VKPyWXPYEFJZvSWYTW TN1JW8s8SNDdttDkJDXfDX QGYVaIVAXyXzWNM38HRcFJ AZ2NGWBBLdUMOHQdSUYYUb 4KTVjlCGHtLF6tTA4PW4LV SVZFIEZPUiBISUdILUdSQU LRBEBYM2YABZHFXNYMTnOD HNtZZ49TKaSMJZLikw10MU D9SyMpq2R1YKE9VAPeZYFo f0akTOXhyXTcAsWcYmGoIb KqItxchNYlSITpTjXbv7eo g939nBMak9riBVCkMsM8qA BgLXGdoRDqW628JBOiTByn h9jod4AbGQEnxXAjg5M8EA CHppfdxZg4cTmqP46uy8U2 QqrvM2jaJFRiZQNtG3CaYP 4lNAUoEem5NTO0RLR7GTUu GKQaX3EfBU9wSUBruWAuZY n9m8hqdYmqGLPfOGU8b4dy GFahjxHrTQ3dux3fuVu0c9 xjczEgRGVmYXVsdCBQYXJh H4CpqEvxKy7vwVm7tFilNe htFHX0Gyx6DO1uiu16bns9 iNnbYZVhakrfLyQ0AYtbJY PtgvprQIm4HAvnGIIhdPZ5 IYMhtPBwE2EmJZHdUP2uwe n6MCI7BXpiAEWqEhC4GCJe mTOjDWNtgJskJPiwh430JD A4HdUcFQ6yK4Oef3P1tV7m aXRcZGVmdGFiNzIwXGZvcm 7wvBGqCCbhb1LmVMM9vdQ9 sXXexJVmOIArMqC9IPxfLA 1zoa87HIFdTCV4ud3nvMSm lOdmaaFthTAwWMykK0JoVY Aoo515JDGeC1ZfQVHdc9V5 xjSyTnCnJWFegAL3veK8FH CgWS5miictc5dcNTyxOOiz QVEwcvY3vlN7CABryDDeK6 InbY8sIWWsYF1qiquju2kl LMK6XSahAPJiMUM4SwHrLU Qrg0Txfze4KmSxv3KnoWOq QVryV62js248YXRmugAkE2 xwbGFpblxwbGFpblxmMFxm tkT3WVKoFGgbjgfjSHCsAC kmD3ggEkIhTSTwvLbkVUft g2KxDYSnDJWgQmFayMKfVE EoZvs7UWPipPTlWSDzExUt U9ebhoxsHlOHMYQgp9bqD4 qulBSLhEYaP1EdYSpytiBa NIdbVIseNCLeTHB9XI3vQQ EcHZBpds65 CPT Code(s) (test code s7vdqOFuUKIoxEQ8IlLuPQ = 3357) Awl4yad6DomAWolHKvNPrk nTNvgpAnje38hIE9yI65QJ 3kBROkMtK7AQWsmsF6Otf6 UIHvOKHwaKYqO673z8glp9 ofieLlgNP2lXiwXXGyqxqq BtO7OGrpVGPmhrgpJVd3KG mbUWHumDJ4VHDsmBRuW2Ht GFErDU0tmfg6JCM9TSxpZY OcXkI4OOZbrUIvVCZmrYrh EXfme701UGC8KeQsZZZuaw WbuPxjqJ4tEdEbFIS2FWWc LBw5HUNmzh0= CLINICAL HISTORY (test o1vzzMHaPJQayCL5DlQqXF code = 3356) Inn3xdm0FfxCKccZViZXjy yOChfzIrrh07hAJ4uK06OC 6xMZHmVeD1PGKcztU0Xsq1 AEAlDWZlwKPvJ847i3zin4 llaxJcuCN2JMQhQFSkA8Rg DW5dTAXgdJCgI86niTUlFB J1IFOcWDTbuCFbCROeGTL3 HGWoiMAdV4pwZNFjPZ3ybr nhQHpyGDeeAOUxaXE9PCZs zDFnW5JtQLEhAXpzSVJwjy n0CeWaZd8gqCJltQwjSUii YXJkXHJpMVxwbGFpblxmcz SlUIPyOXNNyv5fGAUdGfby sFNrV2asRU3bpKwvKCE0yc ApWAZrXpeaPBQigm2zUKFc YmenlBJbY8fmVE6djZqbYV A7jHHvTZUpqf8= GROSS DESCRIPTION (test o1ktxCJqDORafVIUSBYqMf code = [id number]) aqotPqZMXlmBPqB8Oxrvog GJneLB6kMD8knCariLPekV XzBK3INDGfNaAfCRDtxAOh jvNyPhEwTBAgaFCfvWV0LZ FjBY5myntsICbpZNuuFKQg tbT4KWIttVBpB2VpWJArLO 1aiomyHVJ0OJedaU8bseIQ SpbuBd1adKTkfIauDnTyTb NoYXJzZXQwXGZuaWwgQXJp GQm9qF8WOllbC79je5T9Tl p5FMChCXRfJ7WyAY3hBLKu oFVuP97OOfcyIHJ3DEOJJe xwILAjUB0Cm2zrSACwrRZv AFN7CXopgXSyMCWuSNXgFZ f2QONrBKddyKPxDA5sbEao XaycqMght3NhvNTaLBmsIS TkNWVzUUqkVHYyNE1ENgYh ANuRHncbNXslPpM0RWo7MW YWMxErErHaLbmlGUQ2OCym YKm0UOj2CEmPLjJ3KTC1BL ChCBleJEOdZieaXKn7YOEk XFxmIEFyaWFsIFxcZmwgXF zaR63tzWbhjK3yKC2hTT8m yBKxVJVztU8lYG6bP2OzaQ 0uXHBhciANClxlcGljTmVz dERvYzEgDQpcbHRycGFyXG xpbjBccmluMCANClxsdHJj aFxjZjFcZnMyMCBSZWNlaX AiURRvgdMhz8NwGEwunlJd YWJlbGVkIHdpdGggdGhlIH UqdZizmuChN8I5eaWrEG0w JSEoYJKtW3LgEIJkZ42sLJ RyhX3nKNHiGH2zKGx0ITFt DIFbMfrukK5dxBYxIAQszX 1mEGKxA1EfImGeh72kjPS8 cbJeOlLdSUClfn3ygE3xJR Gbjs7fMMHln9V9VBLtc9E6 NMSrFK97UNknEH7xYVvxJB 4xIGNtLCAwLjYgeCAwLjMg nPVfLyKnU75qTkVbJAzeTP BpAWUefBTcWQrdVGL9Tz3x lQTjPYImrtP3d5NpZZloBY SpNwlzSVLhZYnpxKKjSO0Q CYXlIBzalrAxTC1DAPZgBH seZQLucNFPXFS8VF0oEAug hRVqmtidSCQdP4PwS0Znwx SzyOGaWDEvepSbz6bbPXW4 XHNsbXVsdDBcZnMxNlxwYX K8MCs8DIslNIGdH4YpK6Pc HXopEEJ0UQLnUtUzJYVpXS MUPbOwPcJlNcC6Sku5AsBx GKf0NGonN8GXJYXbHTV6WK J1SGO8NsC4IGw8TREMIi4y GLCcCMY6LlS1FPH7FmT6RG xcdCAyIFxcZiBBcmlhbCBc RIKdPRquayR8DHYpXIQqzZ oihO4vNp9fUK6woNZlEHOt hQ7rGR2pTqyygXUwOFLyTR 8soE5eEgplNNTmCUogITJp J79fo0WBw9HxUN2PIEg2cc EkyequgO2oKXAzvbUnKIfu uITgR6ceJ4HoDUHtCnLcOm LnVTu0PLKfeS9dDl1brMAw cL4gzEOnINjxTBR7uIMuBI RdVVKlDEHxXB74HCfDSYHr bmFtZSwgbWVkaWNhbCByZW NvcmQgbnVtYmVyIGFuZCBc eTfzSmSkVMb6N0JssXoeKS Ayb5gmck3miIxusTAmh8Kn jsPketgwYWTwITJzu42ybC T3hyFgRrYeaHr3cIIuQJR0 MM8wnBxxlucjpWLtVWi1bE JcZIZwHsVxaUtuj9EmIOug LjQgeCAyLjEgeCAwLjQgY2 9mtZ4bZPjxpaRhPZOnBW1l QXYwPNEkcSZdyI3bohEtpi HnwSCawJE7KRTcbT8azU62 tgShseHJFA3fmYVbQW3UKD BhciANClxjZjBcZnMyMiAN ClxwbGFpblxlcGljTmVzdE NtNlHsfYjpmM67YLNerKPb UZR3AC3qRXSfdkmhCRRrVA OkAKM6WVijsT59kJIvXNPh IYRkqNZsbR7Kp3keQQVjmJ XyPQJ5EBgxgQXoVKAuKTEl YBfrOyQkR0LLPNWjQuFqAH L1HRXcXOm8AOo7TT0DDfVa NLRdDYPxXbI8TFZgRRl9SQ biOG4BLAZ8Vea8BNG4GFQ8 NTMyOCBcXHQgMiBcXGYgQX IiLWusUEbcaSGjMF6hqOij pgF4HXXfMHamQRTrAYDfsP zuYIFUl7rswuAmUEOvJ8j8 K9XjA1WgYBmwUo0tdQOmDL 6EPYSctNZORDV9FE1zHECC ClxsdHJwYXJcbGluMFxyaW 2qPI0VVXk2ciKjMMUaTQqb eaXvAQUyA6TnncPtELnzXD Ivir4xaYfvCVdnLlGrKARi k5h5dDF0xIRjpLP0eZCciN hlVtUfFV7rlUAfLI8iMGut OLizgzXgj6KeQF11yBKklu QzmrVpKSI9BnWaDUnvRKMe e0o0tUjvR87fa39rkzjafC CgAHGuQG0whU5rXkKybiOk N15dl1witVVdg3OijBNtfT lwbGUgdGFuLXBpbmssIHBl QWXoG7AhCHVwRSEmg7Z1JK Pem1C0JUPmYo71VPlnTm2z WHyfAQ64AIBfVPusGJXwB3 YxN6T0ERdqRXBDrIXjq4Kn P5diYG4esHGne4DkmZc9cD HbQIvjFQJqjQ6jyY0lYdAg XHBhciANClxwYXIgDQpcY2 WxWIDcRjToPIqckQadnW5l RLUfM78ri6YGj4QkXWTlDL upy2xeiGotp0QmzVVrVCkt SNElgEPtXZayaQ1vHfDbz7 suxAn9BSvnueW3LHQszm1R OvhyAizinXwbu7PiqITnCO xrTHYjAQDuZBgtUWVdUV2M BhSrZUbKPewjRDibUiH8OF u0FEOMLrLpFmLvKeojAXV1 GsRhYGb5MOx3OGyHGqN6YY A9QDEwLoQmVVTcXcbxVYh3 IDIgXFxmIEFyaWFsIFxcZm oxVHyyE14pWnQyVvooyTPs ytPMCxGYp7v6pOhzR84bp5 2jNHWTuwGgc9MwbsAzKyqz LBDwRJomRJXtK15rg1GIw2 JrHF1ROVd8xjTztzxsuT1s ZUAqlzSnGBizjAMpT3uvS1 SfTULqFaYxYeVtTFw5WLVa cH9uJd1zqIAhvS6dbPEsZR boSGF4vFIyCAUvODSmFEOd AI22SSaLCKHrnpIuKQbetQ VkaWNhbCByZWNvcmQgbnVt YmVyIGFuZCBcdTgyMjAgXC f0F2OafBknDNLxy6oqnx85 qmByx9KxldQpDLDxhZKoIS 7lNgpqrO98POZdWJJiNPKn rLrlMGjeQcGcygAoD38jb3 txsNMrj6JxgMXkoTncoZSh dGFuLXBpbmssIHBlZHVuY3 UhBVZjDMNwn8O9MLZxu4W7 YKOdAu9qBWlhMw2cJDncLM 69JSOjDUypOKHtP9JzI2Y8 MUwfAWTFpOWqy6ZvC0cxAE 6znVIje0FboHc6xPHpFMdk OHRtmJ2spX6jQWJcWNFjZM TiwjGMPkudPWTuVOxZe9Sv iCalTERcM9s8r55rL9rtsR WoLKACNLW5lKAomiOjmAIk JZ8SJILeqaZIAurkGpVpWw MyMiANClxwbGFpblxlcGlj SfJzdYNgIfTqyOtobT77QI WwaVStXMG8MA4bQEVvktox QKKkHHAlPDM5OBctjT74oN XmZRUhZXYvvCOnhZ3NKAJw FXN5WDwcmI59sFQgMJ3DZN TdWPW3ERXsjJTvSHV7RS4d fQ0KfQ== MICROSCOPIC DESCRIPTION m4oqzERkFHMjkJB4BbDdBY (test code = 3371) Bof3ngn9GyeLHnaYDbKNrp sQKoxyPaef35nJI0aE28SY 8pQSKjTiE0SBLoptU9Bxr0 QKKpQFHxiSDmA556p5mhv8 luzfMjzIG0zNkrUEQdfyrm YeU1TFfaLWDqlakzMMv6QW biZHTdhAH2KWMaqGDsD4Dh FTFwVL3pvil3VEY7YNxyML UgSwC9DINjaYCyVOAuzBhj TCvpg008IWI7VoBpFANglc SgfSgtxO5sBoKqSIPVEKOh p0NgYDZmOCGmsmzdGMYwVJ Bhcn0= [facility] [id number] 09:50:09 Test Item Value Reference Range Interpretation Comments Case Report (test code Surgical Pathology = 104) Report Case: [id number] Authorizing Provider: Angela Loco Collected: 07/03/2021 03:04 PM MD Brian Ordering Location: [address] Received: 07/06/2021 09:08 AM Service Pathologist: [...] clip x 1 DIAGNOSIS (test code = k1hcqULkBWTht9ilEOWqfS 3220) FuZzEwMzNcZnRuYmpcdWMx IHtccnRmMVxlcGljOTYwMV nldxNsUQMaoBLrD8Lkvgys FSzlUY8wNP9abEsxlHClbG XlBBAxUaLrt2lpu766rZVg p7epPJVUkxihsIa1xJasK9 5ix6M2AfntG79ycXQcASR5 WNHdFTBsnTReJCFkTEY5CB UnwUNrS8juYEAzMQ4bvbtj TXqqFFieOUXglEL4CUEeoG RrF5LoHIThJYpuPLEsuai3 QtQfCj7sqJAohPxbWVgrED VpDWWzNMheDJSrAcAjET8c N66RL39xFCGND8YYHCVZQY cEDNGIHV8TV9f6WJPmjnHk LSAgVFVCVUxBUiBBREVOT0 7JMRNehhgrKDDeZo7bT72Z S76wDLOHE9pMW8OOF6BPZP lVAmXRF2mIXNdwYvcFBFOO OmcoMTMtUC9xWV6AHIOEAO vTSQFSRYyWAA2GXjHULsPI KNRQEZIAXUSSMN4LUFWgtQ FyICAtICBORUdBVElWRSBG P8UcAVsQGR5MJyMBOOZRNM UPXZBPUXAiC8LvPNIRIVfW YM0XMAzwVSOupJAzIEIxZR JVWI9CERXXCWyQNL9TA6VN EaPHObtaET3JPDQxXEQLB8 BTWTpccGFyICAtICBNVUxU SVBMRSBGUkFHTUVOVFMgT0 AqZXXUVFoYLpPUOFWXZ98Y XHBhciAgLSAgTkVHQVRJVk NqTs6HHPgUY0mrV4FUAPJj VBjIIOwRG7rFOH7HAN9DEF iFAmNOE4rzuGQzKGMnniCu gIUnTIAvXCUMNT3RQKKBGt CHT3FREcPINQCRHJqHECNO FF5UJ8s2EIZykqJfQDYxSH FRGJqCLRUyWmKFR58GSsPS KE9TTACVLkRAFQEzHAQAZh 3IYXccDQTgUW1aCM2OW9CS SVZFIEZPUiBISUdILUdSQU BIHEFZY9MTUGKVZEZUJnQO JUcBM65MYaNKDDIpft59RA M6MvLdk3J5OGR7KCDsFZRr v2ylRUBchDCyHdQsOdHtVm KkBxdtgKXiTAWqHhPib7qs z847cKAta0qvQCMjIoS8kX FoFEWodXKbF123CRNfSJls z9esi4UfOESihPSzg5T5OG ZJxrixhXc5rYyfZ93jn6E3 ZzxmL4azXBZsFAQxL8JrJV 2zTRZgZvz8BXV6PZL7CYMm HHJeX0JnQS5uTYOlbFXhQJ c0z1pqtHhySSKjYGX4p9we DHcpdeTiWE8bmr1ygJp9y6 xjczEgRGVmYXVsdCBQYXJh W4ZjdElsEz0qvRy5pHaiEj ghTCB2Def5JV2yci74fko7 yGkoQQPrszimHqS8YYqqWS IwfhejCDj4XVthRURimXU2 ANHgjUBuQ9ZhCMKgHA8ogo g6LOR5VFkaZQZoUcF1ZMTt hOJnISDpmXjhHGjdy002BS N3LtItIA9uA5Qmt3F6rO2n aXRcZGVmdGFiNzIwXGZvcm 7zzVDeFOjlc7QpTWK3ueE1 bAVssLVtWJQmUrZ6PIlmKQ 8kvw78AQNfUXZ3ys6fiPUy oRaaugFwvYIfNBrmG6KnNO Teo714IDDtF2RkCMCwe0W2 hfLyVnOoPTMprIA7dhC1RN AzLW1tendtb3joFRkpZKow XRDcvtN8acB9MPNljZTxG9 XdqE5mDFAfZU8hrqqbu6xw TBU3VCceILNqNBE2RrFyAP Biw8Wobqs6SpVfb1JftDJq BZyqT91ed681LZFdqnRxV4 xwbGFpblxwbGFpblxmMFxm isG4OODsYVpsaoyzSWHnCV qhZ8llFiVlTVKeoDteYHgp v3EvUGFmVXYbXsUfcIGhOA BgLeo4LUBxdNLpNFWpVjRf X1trwrbnFzFATVBbo0doS7 yalTJImEOpU9AzLSqlozRt BXceEWtaWJKjOZU7MG0xXV GyLATbmx02 CPT Code(s) (test code p3fyuYTrSNSbiUF9ZjVsZO = 3357) Uej7ymi0EwmQEafWVvEZob cNLhfzXzig23uJT4iI81PO 2kWCLmYcA2RRMriiZ1Rlr9 ADXzDLXgrAQkB449d5rqh7 nuvtJlzIZ4rDjbJKNavhbe McD8OVkcGVEqujraBCh0KN qwPUKzgZD3KOOcdIDvD8Uc XNBkPY0ogif9MOM4LDvcFZ DsJpN7KBPryDGxDPDlsJzm HDkes515MLD1RuQmXTUfea OcvIklmL9yWhIrNRK5UVVd AKu3XGYwav8= CLINICAL HISTORY (test o4uzfKVtEEDcaHX6LsTkEI code = 3356) Hds6ice5WfvQXvnPMpJPnw aTBfcoEckb85pFT1kS76QG 0jUBYhGnC9URIlwhS9Bfk2 MLSdZUEeuDHfF828l0ykj9 nzbcRxmRY2IHIqIKPpH3Ja QR7kFEKkgNEvT30bhCGlBC O4XNUcIVUvdIWnKPNvXQP4 GTPywQKvU7gsSQJiQU0llv paRFwxOCxqZBPpgLT2BJZm uSShY6ClJEHtXTseMKNhgc h9DiJpNs9ylXHuzCujUJcy YXJkXHJpMVxwbGFpblxmcz UlAXAeDFFJyr7zFECtVduh nYJlO8ytZH0cjJfbCXM7ll HdSTHfToplXQVrvz3dGZIf FlhwhDCgH9lyNM2rkZlzXD B8nBJbIVSacs5= GROSS DESCRIPTION (test u1sltDSeRXMswSTLKQMjUc code = [id number]) gdrmOwIVVqoSChH9Vxsbou LSliRZ9rIZ2osVdswDEimE YvUS7NJRYcTyQkLPBidIMm fnMdLlQmCZQgzXCtmGO6RL HqGE1zbqzoTHtvUPgtTIXb gzA6MXIfwTNfE1SiPRBiSF 6xwgnfMTB2ITerrN4wieQE VlstGl1aqOLxjEdgQdUbMj NoYXJzZXQwXGZuaWwgQXJp TJt1xC6HZyniD66xa6Q7Tm h1SIIeLDZrY6AkUY6uTADp hENzJ78IXpbiQKO3DCUMGc dxRAFqQH5Cp6ikCUQhjSCa QMY1VRgbyASeSCQaIVKtWD k6BNMkTIfudUXtGK3msUtf UzhwtWfaz6SbrNDbAFlsSY CnYIXrQRurGQKtYA2LHrPm CSkDSooePMbjPxU0ROl7OF WQKmAhQnStMcqxLPF5ACob QJf9WPn9CQbXNrA6IRY4QH NqSUnaRTMxLirqNDm5OYMi XFxmIEFyaWFsIFxcZmwgXF cgL22wgXidqF1cOO8aWS3u pSYqXDMarF6yTL8qD8XdtG 0uXHBhciANClxlcGljTmVz dERvYzEgDQpcbHRycGFyXG xpbjBccmluMCANClxsdHJj aFxjZjFcZnMyMCBSZWNlaX ObLMDfkgUkf1LyAEqfycWw YWJlbGVkIHdpdGggdGhlIH TsjHwcqqTdT3W5xqKhGV2l KQHbDVQcF8SbDCBzM24fPF LxcS3tXAEwGI3yMQa8TNCe KMOgYynwrT5fmKSzSWVxbG 8lVPJbU3RbWbCfw08onKD2 xlOqZtUgXVZgtu8rdR4rCV Rzwq1dPDKga1R7TTWbv8V7 SHHkUG96QAqwLW3oINptXJ 4xIGNtLCAwLjYgeCAwLjMg oNJkMqUkL55uChKfWNhlQS KwZOArgPWlTVjzEYF4Ab1e gYVbCBMzczP0i0IoLJnuFC NdGjruGZEsCEctvCDmKU4I BHZkIAfiqhHgQS6HWGUuYB kdQWGrfOMSEZQ4DF6pCXfx bEWlvzdxMXWwZ5SvW7Zyih TktMPxGEThqsCor3xxNEX7 XHNsbXVsdDBcZnMxNlxwYX W9BMt9HTseXAZcN1QfL5Ab NQprNOL4WUXaFiWfYSKuXL KQHuRgPvZgRiI7Odl0BeMs AOl1TFniO6WVRNNyRPA6KW E0ONY2EjH1XAk4GPKGBc8n LZTjWZT5DvS7NSW2PfM0OA xcdCAyIFxcZiBBcmlhbCBc ARSeVDwspeB1EDNiMCPumB eluS5bBe8bXB0qxLYvODRj uR6sYB7bDegmuSAeMUXuHX 7coJ3dCqvhGCKjEWkaNXIz P86ip2TQt9MdWL4AZEp8kr PqvbhkaE4fAZBvmsRgRFkj yVKjJ1uvT7EhVXPcCoQaQq TcCRa7NPNjzP7nCo9lyJIt bF8zeQYrAVfkQSI6oJSzGS HtSPIeCQOsRI49XNhYFZFn bmFtZSwgbWVkaWNhbCByZW NvcmQgbnVtYmVyIGFuZCBc aYmmFqPsBZs5E7TobHheEX Pol7suty1jcNdghIYyc9Nd pfFiviztLLCpFQRdm42uuT U5luPqKsXegWj4iOXdBQX2 NI6jnElisdwtrVBwLUj3yZ DcELSjOiYwuZroc4HhTAkb LjQgeCAyLjEgeCAwLjQgY2 5myC8bQPgbhqWrPHFtGC2q DUFwQYJvtSRvwI4fohIpxm VqwOHwwYI9DPCfoL0xnH66 uiIxyhACGB9zpIUmBW3EXO BhciANClxjZjBcZnMyMiAN ClxwbGFpblxlcGljTmVzdE IrSoZmkIczwV19WOTrfLNt UUI8LI5tHEPmnvfmYSSaWX PeFHM7SDljpO91bAVzQHDn JLMthDHtdN5Uc4doKOZkxN XqSTT9GWkvsUQdMFAqYGFa BEabXmGzD0UPIBDoVcWvVO W5STBlCRz0YLc6VC8AHiPy GFOuIINiZlK4YQJwXFx5IF kfSU8AQSN8Sex0RBX0MND8 NTMyOCBcXHQgMiBcXGYgQX LzQResLZppqSZdHZ8niFim veJ6NTRuQFzpCKGzAIXffO ytUFJTb3yfgyAzJFMjP3t0 A1PjI7EmUDjhYl0riZHyPW 4WEQTdlYBTFTE3SX8dIVZI ClxsdHJwYXJcbGluMFxyaW 2sFO1OBGc6avVmHNCiLPjk znEfUQJcM9DstiFyJCcwCT Ugts0xnHaiXHgjOpFkRKNk g3i8gCF6kICuqFF3aTXwpI brHbVmUL6qeWHwVY9sAOma OQhbxkVsx1DfTA63qUSmtd NosvHyQAY9VtAoAJqfUJHz h9c7wEltV14ut90veyjfnI AnYSXfSP2gsU2kZnEbzdEq Q91ln4qkfTFtj2EikRXwgA lwbGUgdGFuLXBpbmssIHBl JOOpE3QoYOXrMAOhr9X1CG Nuu6F1YLLwJj16GShiZn3k IQffCX40LXHzMIftCDBjM7 QfJ5C7ILxdDUCGwYPnd0Yc Z8pyVM9xrQRgh9ExiMa4gG EuOYbrXMMnyM8odL4bIyOf XHBhciANClxwYXIgDQpcY2 AiGXFlMzHcQLgitDmvxU5d COCrH64ep3NJy1OtWCKcXD lwd0sthCmrw3YrgTWfWXgq ZSDbnZLfRPeblS6jEyQxr9 tffDd6XMbledR1YYEgrg8J CnyaZmamyIqvm9BevRZvUU nfRAKrXVVqWNjmURSqPT4J LrOoURaEYmczHEdcXnE3WX a7FGGCVjHqFwIzJjrkAAG5 WhAhEVp2JSa6XOrUHeW9RI X9CCFgDaNxJEPuMmegPUk5 IDIgXFxmIEFyaWFsIFxcZm rkDSzzI06sJlAgJcaafOKx yyQRJbRCu0a7nFrqT48yk6 6mRHHDybHmv3CmsgSiElnc CYCeZHnmYIHlF87sf7YQj8 DkSI4NZTk9jbAwxgdvhF0r YCOmeaDfKTwveOGmY2djY2 FnAJXdSyTeQgWvGWa6LHHa fG5wAj3eyRDvdF9kpMMrPG bgWHJ8nWCrDRDaVJSnTLLu YN73URqTEWDvneFgDPkehQ VkaWNhbCByZWNvcmQgbnVt YmVyIGFuZCBcdTgyMjAgXC c4T9WypQgwCMDlp0kxfx87 apZtw5EjksTfHFHngVBgIX 8eErfvcQ34MSFkAJGqUSBq wSslWMbqJqClqvDjR75re9 okeWNbz9PprQTnkBakwGQx dGFuLXBpbmssIHBlZHVuY3 SrISNmLYHff0B0RUBev7B5 YHSrMm0mJZckOv9mGNvnDR 65FMJbGFyvYPHoW1OhO3A5 LBskMBPFoYJxs6CsS2mwDK 2rdRPmo3EzhCr9vXGfMXpz KEChuL5zkO9pUOQsCBVlYK JthgWKJazeOHIxXHeIk5Cl iQbnGVTtZ8e3y47dD0rkiJ VkVMEMUMK1pLVbzwNpdEBo TV4BSPGrwyLLUdxwLiLiDz MyMiANClxwbGFpblxlcGlj BwGodLWdDwXuwSeojO28BD FehSZkFLC9GJ6fWLEnxsra WJPeTACgERA9NVvleT89sG BlAYVdMBBkpYYeqC2SKIAe YTM5CWguwZ17wLWsOD3GZS WiUKT6ROZncYZkPHS0PC7q fQ0KfQ== MICROSCOPIC DESCRIPTION a4jmyWQrIZLykCO1YbMhAB (test code = 3371) Zug8bbe4DrjBXjbVMjADqf nQElnqNazx86yKU4rS08VQ 1vDUQvDkK2SZFcnzD1Mjb3 THLlSOXprXCbM711y9agn4 kydsVguVG7dRokHPNdcfvt UyX2ZJwnDPJfhdvwYQl8WV iaWMZkdWL8MDErfXJkA3Oe NJWyRT2mvly9MDA7JQswDE HfYxI0TDPjyCZaOAJjcTiz WQvmg278WEE7FqVnFYDnso YmpXgdlK1mYyWiSLGXMLNg m8SzELMjDOUolcgzAMApGR Bhcn0= [facility] [id number] 09:50:09Surgical Pathology Report Case: [id number] Authorizing Provider: Angela Loco Collected: 07/03/2021 03:04 PM MD Brian Ordering Location: [address] Received: 07/06/2021 09:08 AM Service Pathologist: Michelle Fernández MD Specimens: A) - Polyp, Colon - Cecum, x1 taken byhot snare B) - Polyp, Colon - Right/Ascending, x 1 taken by hot snare C) - Polyp, Colon - Right/Ascending, x 1 taken by hot snare, clip x 1 D) - Polyp, Colon - Transverse, x 1 taken by hot snare, clip x1 A. COLON, CECAL POLYP, BIOPSY: - TUBULAR [...] OR MALIGNANCY Signing Pathologist Direct Phone Line: [phone] signed by Michelle Fernández MD on 07/07/2021 at 9:50 [id number] deficiency anemia, unspecified iron deficiency anemia type A. Polyp, Colon - Cecum.Received in formalin labeled with the patient's name, medical record number and "polyp, colon-cecum" consists of 2 robert-pink, ovoid soft tissue (0.5 x 0.2x 0.1 cm, 0.6 x 0.3 x 0.3 [...] colon-right ascending" and consists of multiple robert-pink, pedunculated soft tissue (2.4 x 2.1 x 0.4 cm in aggregate). The specimen is submitted in toto in C1.D. Polyp, Colon - Transverse.Received in formalin labeled with the patient's name, medical record number and "polyp, cvege-pfongmmppn-3 taken by hot snare, clip x1" and consists of multiple robert- pink, pedunculated soft tissue (6.0 x 2.2 x 0.4 cm in aggregate). The specimen is submitted in toto in D1-D3.GRICELDA Andrew studentPerformed.POC- Glucose [id number] 08:45:23 Test Item Value Reference Range Interpretation Comments POC-Glucose Meter (test 92 mg/dL 70-110 : TE STED AT [facility] code = 1538) [address] [facility], 770 30: Anthropologist/Techni kelle ID = [id number] for ORPHEY, EDMUNDO Lab Interpretation (test Normal code = 02887-2) [facility] [id number] 08:45:23 Test Item Value Reference Range Interpretation Comments POC-Glucose Meter (test 92 mg/dL 70-110 : TE STED AT [facility] code = 1538) [address] [facility], 770 30: Anthropologist/Techni kelle ID = [id number] for ORPHEY, EDMUNDO Lab Interpretation (test Normal code = 22040-7) [facility]Glucose [id number] 08:45:23 Test Item Value Reference Range Interpretation Comments POC-Glucose Meter (test 92 mg/dL 70-110 : TE STED AT [facility] code = 1538) [address] [facility], 770 30: Anthropologist/Techni kelle ID = [id number] for ORPHEY, EDMUNDO Lab Interpretation (test Normal code = 60186-1) [facility]-GLUCOSE [id number] 08:45:23 Test Item Value Reference Range Interpretation Comments POC-GLUCOSE METER 92 mg/dL 70-110 : TESTED A T [facility] 6720 (BEAKER) (test code = [facility]UYD [facility], 1538) 612[address]: Anthropologist/Techni kelle ID = [id number] for ORPH EY, EDMUNDO RAD, CHEST, 1 VIEW, NON [id number] 07:59:00Reason for exam:->post-opShould this be performed at the bedside?->Yes [facility] LIND[facility]Y : 1955 Sex: FFINAL [...] findings: None. Signed: Bayron Cosme MDReport Verified Date/Time:07/04/2021 07:59:51 BASIC METABOLIC [id number] 06:24:45 Test Item Value Reference Range Interpretation [...] S NOT APPLICABLE FOR DIALYSIS PATIEN TS. Anthropologist ID - [id number] 06:15:51 Test Item Value Reference Range Interpretation Comments MAGNESIUM (BEAKER) (test code = 1.9 mg/dL 1.6-2.6 627) Anthropologist ID - [id number] 06:15:51 Test Item Value Reference Range Interpretation Comments PHOSPHORUS (BEAKER) (test code = 3.1 mg/dL 2.3-4.7 604) Anthropologist ID - [id number] (HEMOGRAM ONLY)2021-07-04 05:44:21 Test [...] Not Detected, (test code = Negative, See 70431-1) external report for linked test SARS-COV-2 [facility] PERFORMING LAB (test code = 65517-3) BRANDI (test code = Negative result for [...] of the Act. Fact Sheet for Healthcare Providers:https://www.Imagistx/sites/default/f radha/product/documents/F act_Sheet_HC_Providers_L ayg_TICV-SuU-5.pdf Fact Sheet for Healthcare Patients:https://www.BTC Trip/sites/default/fi les/product/documents/Fa ct_Sheet_Patients_Lyra_S ARS-CoV-2.pdf Performing Laboratory:[facility] [place] [address] [facility]As[facility]omatic ONLY[facility]2021-07-04 00:21:04 Test Item Value Reference Range Interpretation Comments SARS-COV2/RT-PCR Negative Not Detected, (test code = Negative, See 97180-3) external report for linked test SARS-COV-2 [facility] PER[facility] (test code = 78882-3) BRANDI (test code = Negative result for [...] of the Act. Fact Sheet for Healthcare Providers:https://www.Imagistx/sites/default/f radha/product/documents/F act_Sheet_HC_Providers_L kss_WBEK-AwV-0.pdf Fact Sheet for Healthcare Patients:https://www.BTC Trip/sites/default/fi les/product/documents/Fa ct_Sheet_Patients_Lyra_S ARS-CoV-2.pdf Performing Laboratory:[facility] [place] [address] [facility] (Asymptomatic ONLY)2021-07-04 00:21:04 Test Item Value Reference Range Interpretation Comments SARS-COV2/RT-PCR Negative Not Detected, (test code = Negative, See 87107-5) external report for linked test SARS-COV-2 [facility] (test code = 05428-9) BRANDI (test code = Negative result for [...] of the Act. Fact Sheet for Healthcare Providers:https://www.CaseTrek idel.[place]/sites/default/f radha/product/documents/F act_Sheet_HC_Providers_L kci_YSGB-YuZ-1.pdf Fact Sheet for Healthcare Patients:https://www.ankur del.[place]/sites/default/fi les/product/documents/Fa ct_Sheet_Patients_Lyra_S ARS-CoV-2.pdf Performing Laboratory:[facility] [place] [address] [facility] ([facility])2021-07-04 00:21:04 Test Item Value Reference Range Interpretation Comments SARS-COV2/RT-PCR (test Negative Not Detected, Negative, code = 7184580) See external report for linked test SARS-COV-2 PERFORMING LAB [facility] (test code = 6259992) Negative result for this test determines that [...] of the Act.Fact Sheet for Healthcare Prov iders:https://www.Omnisens/sites/default/files/product/documents/Fact_Sheet_HC _Yqntndcuo_Gccw_LWEE-CwN-5.pdfFact Sheet for Healthcare Patients:https://www.Pro V[employer]V.[place]/sites/default/files/product/docume nts/Iqpt_Kbtym_Qqzyiqvb_Izdi_JNUF-EaV-7.pdfPerforming Laboratory:[address], [place] [address]ZAOV-EZYBFNA METER 2021-07-03 21:29:18 Test Item Value Reference Range Interpretation Comments POC-GLUCOSE METER 169 mg/dL 70-110 H : TESTED A T [facility] 6720 (BEAKER) (test code = [facility], 1538) 62553: Anthropologist/Techni kelle ID = [id number] for Co Mohit grangeravia POCT-GLUCOSE [id number] 17:51:28 Test Item Value Reference Range Interpretation Comments POC-GLUCOSE METER 110 mg/dL 70-110 : TESTED A T [facility] (BEAKER) (test code = [facility], 1538) 06351: Anthropologist/Techni kelle ID = [id number] for OR DANIEL BOWIEIS POCT-GLUCOSE [id number] 16:18:01 Test Item Value Reference Range Interpretation Comments POC-GLUCOSE METER 78 mg/dL 70-110 : [facility] (test code = [facility], 1538) 41534: Anthropologist/Techni kelle ID = [id number] for Naren palacio, Sarwat POC-Glucose [id number] 13:43:00 Test Item Value Reference Range Interpretation Comments POC-Glucose Meter (test 82 mg/dL 70-110 : TE STED AT [facility] code = 1538) 6720 [facility], 770 30: Anthropologist/Techni kelle ID = [id number] for RENETTA STEARNS Lab Interpretation (test Normal code = 88200-3) [facility] [id number] 13:43:00 Test Item Value Reference Range Interpretation Comments POC-GLUCOSE METER 82 mg/dL 70-110 : [facility] (test code = [facility], 1538) 89254: Anthropologist/Techni kelle ID = [id number] for RENETTA STEARNS POCT-GLUCOSE [id number] 08:55:17 Test Item Value Reference Range Interpretation Comments POC-GLUCOSE METER 85 mg/dL 70-110 : [facility] (test code = [facility], 1538) 70725: Anthropologist/Techni kelle ID = [id number] for ORPH EY, EDMUNDO RAD, CHEST, 1 VIEW, NON [id number] 07:19:00Reason for exam:->post-opShould this be performed at the bedside?->Yes [facility] 1955 Sex: FFINAL [...] Conteh Verified Date/Time: 07/03/2021 07:19:27 Reading Location: [facility] Radiology Reading Room BASIC METABOLIC [id number] 04:12:43 Test Item Value Reference Range Interpretation [...] S NOT APPLICABLE FOR DIALYSIS PATIEN TS. Anthropologist ID - RAKAN [id number] 03:43:29 Test Item Value Reference Range Interpretation Comments MAGNESIUM (BEAKER) (test code = 2.1 mg/dL 1.6-2.6 627) Anthropologist ID Bassam BLEDSOE [id number] 03:43:29 Test Item Value Reference Range Interpretation Comments PHOSPHORUS (BEAKER) (test code = 3.4 mg/dL 2.3-4.7 604) Anthropologist ID Bassam BLEDSOE [facility] (HEMOGRAM ONLY)2021-07-03 03:25:24 [...] WBC 0-0 (test code = 413) POC-Glucose [id number] 21:37:50 Test Item Value Reference Range Interpretation Comments POC-Glucose Meter (test 97 mg/dL 70-110 : TE STED AT [facility] code = 1538) 67[address] [facility], 770 30: Anthropologist/Techni kelle ID = [id number] for [place], MACKENZIE Lab Interpretation (test Normal code = 97674-6) [facility] [id number] 21:37:50 Test Item Value Reference Range Interpretation Comments POC-GLUCOSE METER 97 mg/dL 70-110 : TESTED A T [facility] 6720 (BEAKER) (test code = [facility], 1538) 66911: Anthropologist/Techni kelle ID = [id number] for NATALIA RO, MACKENZIE POCT-GLUCOSE [id number] 18:00:54 Test Item Value Reference Range Interpretation Comments POC-GLUCOSE METER 166 mg/dL 70-110 H : TESTED A T [facility] 6720 (BEAKER) (test code = [facility], 1538) 94825: Anthropologist/Techni kelle ID = [id number] for Ba rrera, Kayla POCT-GLUCOSE [id number] 13:01:12 Test Item Value Reference Range Interpretation Comments POC-GLUCOSE METER 169 mg/dL 70-110 H : TESTED A T [facility] 6720 (BEAKER) (test code = [facility], 1538) 70237: Anthropologist/Techni kelle ID = [id number] for Ba rrera, Kayla POC-Glucose [id number] 08:45:07 Test Item Value Reference Range Interpretation Comments POC-Glucose Meter (test 134 mg/dL 70-110 H : TE STED AT [facility] code = 1538) 67[address] [facility], 770 30: Anthropologist/Techni kelle ID = [id number] for Freitas, Mariss a Lab Interpretation (test Abnormal code = 92722-6) [facility]PO[facility] [id number] 08:45:07 Test Item Value Reference Range Interpretation Comments POC-GLUCOSE METER 134 mg/dL 70-110 H : TESTED A T [facility] 6720 (AKASH) (test code = [facility] [place], 1538) 10021: Anthropologist/Techni kelle ID = [id number] for Kayla Emanuel RAD, CHEST, 1 VIEW, NON [id number] 08:36:00Reason for exam:->post-opShould this be performed at the bedside?->Yes [facility] : 1955 Sex: FFINAL [...] or small pleural effusion. Signed: Boogie Conteh Verified Date/Time: 07/02/2021 08:36:36Reading Location: [facility] Radiology Reading Room Basic Metabolic [id number] 07:06:58 Test Item Value Reference Range Interpretation Comments Sodium (test code = 137 meq/L 801-420 5945-2) Potassium (test code = 3.9 meq/L 3.5-5.1 2823-3) Chloride (test code = 101 meq/L 98-107 2075-0) CO2 (test code = 28 meq/L 22-29 2028-9) BUN (test code = 23 mg/dL 7-21 H 3094-0) Creatinine (test code 3.16 mg/dL 0.57-1.25 H = 2160-0) Glucose (test code = 150 mg/dL 70-105 H 2345-7) Calcium (test code = 8.1 mg/dL 8.4-10.2 L 94230-9) EGFR (test code = 15 mL/min/1.73 [place] [address]-5) NOT ACCURATE CREATININE CLEARANCE IN PREDICTING GLOMERULAR FILTRATION RATE . ESTIMATED GFR I S NOT APPLICABLE FOR DIALYSIS PATIENTS. BRANDI (test code = BRANDI) Anthropologist ID - PIAYA L Lab Interpretation Abnormal (test code = 73972-7) [facility] CaliforniaBASI METABOLIC [id number] 07:06:58 Test Item Value Reference Range Interpretation [...] S NOT APPLICABLE FOR DIALYSIS PATIEN TS. Anthropologist ID - PIAYA [id number] 07:06:52 Test Item Value Reference Range Interpretation Comments Magnesium (test code = 1.9 mg/dL 1.6-2.6 56614-5) BRANDI (test code = BRANDI) Anthropologist ID - LIANA L Lab Interpretation (test Normal code = 89428-3) [facility] California[facility]2022-03-31 07:06:52 Test Item Value Reference Range Interpretation Comments Phosphorus (test code = 2.6 mg/dL 2.3-4.7 2777-1) BRANDI (test code = BARNDI) Anthropologist ID - LIANA L Lab Interpretation (test Normal code = 48930-0) [facility] California[facility]UM2022-03-31 07:06:52 Test Item Value Reference Range Interpretation Comments MAGNESIUM (BEAKER) (test code = 1.9 mg/dL 1.6-2.6 627) Anthropologist ID - LIANA [id number] 07:06:52 Test Item Value Reference Range Interpretation Comments PHOSPHORUS (BEAKER) (test code = 2.6 mg/dL 2.3-4.7 604) Anthropologist ID - LIANA LCBC (Hemogram only)2021-07-02 05:56:49 Test Item Value Reference Range Interpretation Comments WBC (test code = 6690-2) 4.6 See_Comment [A utomated message] The system [employer] generated this result transmitted ref erence range: 3.5 - 10 .5 K/L. The refe rence range was not u sed to interpret this result as normal/abnor mal. RBC (test code = 789-8) 2.50 See_Comment L [Au tomated message] The system [employer] generated this result transmitted ref erence range: 3.93 - 5 .22 M/L. The refe rence range was not u sed to interpret this result as normal/abnor mal. MCHC (test code = 786-4) 31.9 See_Comment L [A utomated message] The system [employer] generated this result transmitted ref erence range: [...] L [Aut omated message] 777-3) The system [employer] generated this result transmitted ref erence range: 150 - 45 0 K/CU MM. The referen ce range was not u sed to interpret this result as normal/abnor mal. MPV (test code = 11.3 fL 9.4-12.3 36354-2) nRBC (test code = 413) 0 See_Comment [Aut omated message] The system [employer] generated this result transmitted ref erence range: 0 - 0 /1 00 WBC. The refere nce range was not u sed to interpret this result as normal/abnor mal. Lab Interpretation (test Abnormal code = 08361-8) [facility] (HEMOGRAM ONLY)2021-07-02 05:56:49 Test Item Value [...] WBC 0-0 (test code = 413) POCT-GLUCOSE [id number] 21:57:03 Test Item Value Reference Range Interpretation Comments POC-GLUCOSE METER 179 mg/dL 70-110 H : TESTED A T [facility] 6720 (BEAKER) (test code = [place] [facility], 1538) [address]: Anthropologist/Techni kelle ID = [id number] for MACKENZIE GONZALEZ POCT-GLUCOSE [id number] 17:59:08 Test Item Value Reference Range Interpretation Comments POC-GLUCOSE METER 208 mg/dL 70-110 H : TESTED A T [facility] 6720 (BEAKER) (test code = [facility], 1538) 97897: Anthropologist/Techni kelle ID = [id number] for Loco Hicks POCT-GLUCOSE [id number] 13:37:14 Test Item Value Reference Range Interpretation Comments POC-GLUCOSE METER 118 mg/dL 70-110 H : TESTED A T [facility] 6720 (BEAKER) (test code = [facility], 1538) 47537: Anthropologist/Techni kelle ID = [id number] for Millie Toledo RAD, CHEST, 1 VIEW, NON [id number] 09:58:00Reason for exam:->post-opShould this be performed at the bedside?->Yes [facility] : 1955 Sex: FFINAL REPORT [...] pneumonia or pulmonary edema. Signed: Boogie Conteh MDReport Verified Date/Time: 07/01/2021 09:58:13 Reading Location: [facility] Reading Room POC-Glucose [id number] 08:48:09 Test Item Value Reference Range Interpretation Comments POC-Glucose Meter (test 127 mg/dL 70-110 H : TE STED AT [facility] code = 1538) [facility] [facility], 770 30: Anthropologist/Techni kelle ID = [id number] for Loco Chapman Lab Interpretation (test Abnormal code = 01953-2) [facility] [id number] 08:48:09 Test Item Value Reference Range Interpretation Comments POC-GLUCOSE METER 127 mg/dL 70-110 H : TESTED A T [facility] 6720 (BEAKER) (test code = YUDY Vaca [facility], 1538) 70390: Anthropologist/Techni kelle ID = [id number] for Zachary sarahLoco Basic Metabolic [id number] 06:34:36 Test Item Value Reference Range Interpretation Comments Sodium (test code = 134 meq/L 136-145 L 2951-2) Potassium (test code = 4.2 meq/L 3.5-5.1 2823-3) Chloride (test code = 99 meq/L 98-107 5-0) CO2 (test code = 25 meq/L 22-29 2027-9) BUN (test code = 32 mg/dL 7-21 H 3094-0) Creatinine (test code 4.33 mg/dL 0.57-1.25 H = 2160-0) Glucose (test code = 167 mg/dL 70-105 H 2345-7) Calcium (test code = 8.2 mg/dL 8.4-10.2 L 17168-0) EGFR (test code = 10 mL/min/1.73 [place] [address]-0) NOT ACCURATE CREATININE CLEARANCE IN PREDICTING GLOMERULAR FILTRATION RATE . ESTIMATED GFR I S NOT APPLICABLE FOR DIALYSIS PATIENTS. BRANDI (test code = BRANDI) Anthropologist ID - LIANA L Lab Interpretation Abnormal (test code = 07117-6) [facility] California[facility] METABOLIC [id number] 06:34:36 Test Item Value Reference Range Interpretation [...] S NOT APPLICABLE FOR DIALYSIS PATIEN TS. Anthropologist ID - LIANA HUhekjwobb5571-49-97 06:26:43 Test Item Value Reference Range Interpretation Comments Magnesium (test code = 2.1 mg/dL 1.6-2.6 74288-5) BRANDI (test code = BRANDI) Anthropologist ID - PIKEZIA L Lab Interpretation (test Normal code = 58340-8) [facility] CaliforniaPhosphorus2022-03-30 06:26:43 Test Item Value Reference Range Interpretation Comments Phosphorus (test code = 3.6 mg/dL 2.3-4.7 2777-1) BRANDI (test code = BRANDI) Anthropologist ID - LIANA L Lab Interpretation (test Normal code = 08634-0) [facility] CaliforniaMAGNESIUM2022-03-30 06:26:43 Test Item Value Reference Range Interpretation Comments MAGNESIUM (BEAKER) (test code = 2.1 mg/dL 1.6-2.6 627) Anthropologist ID - LIANA [id number] 06:26:43 Test Item Value Reference Range Interpretation Comments PHOSPHORUS (BEAKER) (test code = 3.6 mg/dL 2.3-4.7 604) Anthropologist ID - LIANA LCBC (Hemogram only)2021-07-01 05:41:20 Test Item Value Reference Range Interpretation Comments WBC (test code = 6690-2) 4.8 See_Comment [A utomated message] The system [employer] generated this result transmitted ref erence range: 3.5 - 10 .5 K/L. The refe rence range was not u sed to interpret this result as normal/abnor mal. RBC (test code = 789-8) 2.60 See_Comment L [Au tomated message] The system [employer] generated this result transmitted ref erence range: 3.93 - 5 .22 M/L. The refe rence range was not u sed to interpret this result as normal/abnor mal. MCHC (test code = 786-4) 32.1 See_Comment L [A utomated message] The system [employer] generated this result transmitted ref erence range: [...] L [Aut omated message] 777-3) The system [employer] generated this result transmitted ref erence range: 150 - 45 0 K/CU MM. The referen ce range was not u sed to interpret this result as normal/abnor mal. MPV (test code = 11.3 fL 9.4-12.3 48686-2) nRBC (test code = 413) 0 See_Comment [Aut omated message] The system [employer] generated this result transmitted ref erence range: 0 - 0 /1 00 WBC. The refere nce range was not u sed to interpret this result as normal/abnor mal. Lab Interpretation (test Abnormal code = 43267-2) [facility] (HEMOGRAM ONLY)2021-07-01 05:41:20 Test Item Value [...] WBC 0-0 (test code = 413) POCT-GLUCOSE [id number] 21:14:47 Test Item Value Reference Range Interpretation Comments POC-GLUCOSE METER 159 mg/dL 70-110 H : TESTED A T [facility] 6720 (BEAKER) (test code = [facility] [place], 1538) [address]: Anthropologist/Techni kelle ID = [id number] for RO FRANCES, MACKENZIE RAD, ABDOMEN/KUB, 1 VIEW [id number] 18:59:00Reason for exam:- >constipationShould this be performed at the bedside?->Yes [facility] 1955 Sex: FFINAL REPORT Exam: RAD, ABDOMEN/KUB, 1 VIEW APDate: 06/30/2021 6:58 PM Indication:constipation COMPARISON: 06/24/2021 DISCUSSION/IMPRESSION: The lower thorax is within normal limits. Nonspecific bowel gas pattern. No evidence of free air within the limitations of this study. Signed: Kb Gregorio Verified Date/Time: 06/30/2021 18:59:30 Reading Location: [address] Reading Room POCT-GLUCOSE [id number] 17:39:03 Test Item Value Reference Range Interpretation Comments POC-GLUCOSE METER 204 mg/dL 70-110 H : TESTED A T [facility] ([employer]) (test code = [facility], 1538) 10957: Anthropologist/Techni kelle ID = [id number] for OR PHEY, EDMUNDO POCT-GLUCOSE [id number] 12:35:41 Test Item Value Reference Range Interpretation Comments POC-GLUCOSE METER 136 mg/dL 70-110 H : TESTED A T [facility] 6720 ([employer]) (test code = [facility], 1538) 36680: Anthropologist/Techni kelle ID = [id number] for OR PHEY, EDMUNDO RAD, CHEST, 1 VIEW, NON [id number] 09:21:00Reason for exam:->post-opShould this be performed at the bedside?->Yes [facility] 1955 Sex: FFINAL [...] Conteh Verified Date/Time: 06/30/2021 09:21:42 Reading Location: [facility] Radiology Reading Room POCT-GLUCOSE [id number] 08:26:49 Test Item Value Reference Range Interpretation Comments POC-GLUCOSE METER 132 mg/dL 70-110 H : TESTED A T [facility] 6720 (BEAKER) (test code = [facility] [place] [place], 1538) [address]: Anthropologist/Techni kelle ID = [id number] for OR EDMUNDO BOWIE BASIC METABOLIC [id number] 05:31:46 Test Item Value Reference Range Interpretation [...] S NOT APPLICABLE FOR DIALYSIS PATIEN TS. Anthropologist ID - LIANA [id number] 05:28:01 Test Item Value Reference Range Interpretation Comments MAGNESIUM (BEAKER) (test code = 1.8 mg/dL 1.6-2.6 627) Anthropologist ID - BURKEKEZIA SNRWXEZWVPV2528-07-56 05:28:01 Test Item Value Reference Range Interpretation Comments PHOSPHORUS (BEAKER) (test code = 2.6 mg/dL 2.3-4.7 604) Anthropologist ID - LIANA LCBC (HEMOGRAM ONLY)2021-06-30 05:03:10 [...] 0-0 (test code = 413) Prepare Leuko-Red [id number] 23:54:00 Test Item Value Reference Range Interpretation Comments CROSSMATCH (test code = 2264) COMPATIBLE Unit ABO (test code = O Pos 1825480) UNIT NUMBER (test code = [id number] 934-0) Status (test code = 2953778) TX_TIMEINCHART Blood Bank Product (test code RED BLOOD CELLS = 2263) PRODUCT CODE (test code = K2411P99 933-2) [facility] California[facility] Leuko-Red [id number] 23:54:00 Test Item Value Reference Range Interpretation Comments CROSSMATCH (test code = 2264) COMPATIBLE Unit ABO (test code = O Pos 8311040) UNIT NUMBER (test code = [id number] 934-0) Status (test code = 6949534) [facility] Blood Bank Product (test code RED BLOOD CELLS = 2263) PRODUCT CODE (test code = V6285H94 933-2) [facility] CaliforniaPrepare Leuko-Red [id number] 23:54:00 Test Item Value Reference Range Interpretation Comments CROSSMATCH (test code = 2264) COMPATIBLE Unit ABO (test code = O Pos 8694983) UNIT NUMBER (test code = [id number] 934-0) Status (test code = 6915046) TX_TIMEINCHART Blood Bank Product (test code RED BLOOD CELLS = 2263) PRODUCT CODE (test code = P0466B05 933-2) [facility] CaliforniaPrepare Leuko-Red [id number] 23:54:00 Test Item Value Reference Range Interpretation Comments CROSSMATCH (test code = 2264) COMPATIBLE Unit ABO (test code = O Pos 4193936) UNIT NUMBER (test code = [id number] 934-0) Status (test code = 1227669) TX_TIMEINCHART Blood Bank Product (test code RED BLOOD CELLS = 2263) PRODUCT CODE (test code = D8267N40 933-2) [facility] CaliforniaPrepare Leuko-Red [id number] 23:54:00 Test Item Value Reference Range Interpretation Comments CROSSMATCH (test code = 2264) COMPATIBLE Unit ABO (test code = O Pos 1524942) UNIT NUMBER (test code = [id number] 934-0) Status (test code = 9210271) [place] Blood Bank Product (test code RED BLOOD CELLS = 2263) PRODUCT CODE (test code = U4995V41 933-2) [facility] California[facility] Leuko-Red [id number] 23:54:00 Test Item Value Reference Range Interpretation Comments CROSSMATCH (test code = 2264) COMPATIBLE Unit ABO (test code = O Pos 0519627) UNIT NUMBER (test code = [id number] 934-0) Status (test code = 1304643) TX_TIMEINCHART Blood Bank Product (test code RED BLOOD CELLS = 2263) PRODUCT CODE (test code = X0991A10 933-2) [facility] CaliforniaPrepare Leuko-Red [id number] 23:54:00 Test Item Value Reference Range Interpretation Comments CROSSMATCH (test code = 2264) COMPATIBLE Unit ABO (test code = O Pos 2446607) UNIT NUMBER (test code = [id number] 934-0) Status (test code = 9309825) TX_TIMEINCHART Blood Bank Product (test code RED BLOOD CELLS = 2263) PRODUCT CODE (test code = F5300V08 933-2) [facility] CaliforniaPOCT-GLUCOSE [id number] 22:04:06 Test Item Value Reference Range Interpretation Comments POC-GLUCOSE METER 149 mg/dL 70-110 H : TESTED A T [facility] 6720 (BEAKER) (test code = [facility] [place], 1538) 10[address]: Anthropologist/Techni kelle ID = [id number] for Federico Overton pastora POCT-GLUCOSE [id number] 17:55:17 Test Item Value Reference Range Interpretation Comments POC-GLUCOSE METER 150 mg/dL 70-110 H : TESTED A T [facility] 6720 (AKASH) (test code = [facility], 1538) 62145: Anthropologist/Techni kelle ID = [id number] for OR PHEY, EDMUNDO POCT-GLUCOSE [id number] 15:31:47 Test Item Value Reference Range Interpretation Comments POC-GLUCOSE METER 155 mg/dL 70-110 H : TESTED A T [facility] 6720 (AKASH) (test code = [facility] [place], 1538) 45463: Anthropologist/Techni kelle ID = [id number] for OR PHEY, EDMUNDO RAD, CHEST, 1 VIEW, NON [id number] 10:41:00Reason for exam:->post-opShould this be performed at the bedside?->Yes [facility] : 1955 Sex: FFINAL REPORT [...] Conteh Verified Date/Time: 06/29/2021 10:41:18 Reading Location: [facility] Reading Room POC-Glucose [id number] 08:51:04 Test Item Value Reference Range Interpretation Comments POC-Glucose Meter (test 208 mg/dL 70-110 H : TE STED AT [facility] code = 1538) 67[address] [facility], 770 30: Anthropologist/Techni kelle ID = [id number] for EDMUNDO BARRAGAN Lab Interpretation (test Abnormal code = 03300-6) [facility] CaliforniaPOC-Glucose [id number] 08:51:04 Test Item Value Reference Range Interpretation Comments POC-Glucose Meter (test 208 mg/dL 70-110 H : TE STED AT [facility] code = 1538) 67[address] [facility], 770 30: Anthropologist/Techni kelle ID = [id number] for ORPHEY, EDMUNDO Lab Interpretation (test Abnormal code = 08612-1) [facility]-GLUCOSE [id number] 08:51:04 Test Item Value Reference Range Interpretation Comments POC-GLUCOSE METER 208 mg/dL 70-110 H : TESTED A T [facility] 6720 (BEAKER) (test code = [facility], 1538) 05263: Anthropologist/Techni kelle ID = [id number] for OR EDMUNDO BOWIE Basic Metabolic [id number] 06:07:27 Test Item Value Reference Range Interpretation Comments Sodium (test code = 133 meq/L 136-145 L 2951-2) Potassium (test code = 4.3 meq/L 3.5-5.1 2823-3) Chloride (test code = 99 meq/L 98-107 5-0) CO2 (test code = 24 meq/L 22-29 2027-9) BUN (test code = 37 mg/dL 7-21 H 3094-0) Creatinine (test code 4.75 mg/dL 0.57-1.25 H = 2160-0) Glucose (test code = 257 mg/dL 70-105 H 2345-7) Calcium (test code = 8.0 mg/dL 8.4-10.2 L 76535-6) EGFR (test code = 9 mL/min/1.[place] [address]-5) NOT ACCURATE CREATININE CLEARANCE IN PREDICTING GLOMERULAR FILTRATION RATE . ESTIMATED GFR I S NOT APPLICABLE FOR DIALYSIS PATIENTS. BRANDI (test code = BRANDI) Anthropologist ID - HIEN M Lab Interpretation Abnormal (test code = 96361-2) [facility] Metabolic [id number] 06:07:27 Test Item Value Reference Range Interpretation Comments Sodium (test code = 133 meq/L 136-145 L 2951-2) Potassium (test code = 4.3 meq/L 3.5-5.1 2823-3) Chloride (test code = 99 meq/L 98-107 2075-0) CO2 (test code = 24 meq/L 22-29 2027-9) BUN (test code = 37 mg/dL 7-21 H 3094-0) Creatinine (test code 4.75 mg/dL 0.57-1.25 H = 2160-0) Glucose (test code = 257 mg/dL 70-105 H 2345-7) Calcium (test code = 8.0 mg/dL 8.4-10.2 L 32980-6) EGFR (test code = 9 mL/min/1.[place] [address]-5) NOT ACCURATE CREATININE CLEARANCE IN PREDICTING GLOMERULAR FILTRATION RATE . ESTIMATED GFR I S NOT APPLICABLE FOR DIALYSIS PATIENTS. BRANDI (test code = BRANDI) Anthropologist ID - HIEN M Lab Interpretation Abnormal (test code = 36942-9) [facility] Metabolic [id number] 06:07:27 Test Item Value Reference Range Interpretation Comments Sodium (test code = 133 meq/L 136-145 L 2951-2) Potassium (test code = 4.3 meq/L 3.5-5.1 2823-3) Chloride (test code = 99 meq/L 98-107 2075-0) CO2 (test code = 24 meq/L -29 2027-9) BUN (test code = 37 mg/dL 7-21 H 3094-0) Creatinine (test code 4.75 mg/dL 0.57-1.25 H = 2160-0) Glucose (test code = 257 mg/dL 70-105 H 2345-7) Calcium (test code = 8.0 mg/dL 8.4-10.2 L 43652-0) EGFR (test code = 9 mL/min/1.[place] [address]-9) NOT ACCURATE CREATININE CLEARANCE IN PREDICTING GLOMERULAR FILTRATION RATE . ESTIMATED GFR I S NOT APPLICABLE FOR DIALYSIS PATIENTS. BRANDI (test code = BRANDI) Anthropologist ID Bassam STANFORD M Lab Interpretation Abnormal (test code = 16238-9) [facility] CaliforniaBASIC METABOLIC [id number] 06:07:27 Test Item Value Reference Range Interpretation [...] S NOT APPLICABLE FOR DIALYSIS PATIEN TS. Anthropologist NORAH STANFORD [id number] 06:05:44 Test Item Value Reference Range Interpretation Comments Phosphorus (test code = 2.5 mg/dL 2.3-4.7 2777-1) BRANDI (test code = BRANDI) Anthropologist ID Bassam STANFORD M Lab Interpretation (test Normal code = 31176-3) [facility] California[facility]2022-03-28 06:05:44 Test Item Value Reference Range Interpretation Comments Phosphorus (test code = 2.5 mg/dL 2.3-4.7 2777-1) BRANDI (test code = BRANDI) Anthropologist ID - IHEN M Lab Interpretation (test Normal code = 22726-4) [facility] California[facility]2022-03-28 06:05:44 Test Item Value Reference Range Interpretation Comments Phosphorus (test code = 2.5 mg/dL 2.3-4.7 2777-1) BRANDI (test code = BRANDI) Anthropologist ID - HIEN M Lab Interpretation (test Normal code = 81839-5) [facility] CaliforniaPHOSPHORUS2022-03-28 06:05:44 Test Item Value Reference Range Interpretation Comments PHOSPHORUS (BEAKER) (test code = 2.5 mg/dL 2.3-4.7 604) Anthropologist ID - HIEN [id number] 06:05:43 Test Item Value Reference Range Interpretation Comments Magnesium (test code = 2.2 mg/dL 1.6-2.6 28734-4) BRANDI (test code = BRANDI) Anthropologist ID - HIEN M Lab Interpretation (test Normal code = 69133-6) [facility]2022-03-28 06:05:43 Test Item Value Reference Range Interpretation Comments Magnesium (test code = 2.2 mg/dL 1.6-2.6 66811-2) BRANDI (test code = BRANDI) Anthropologist ID - HIEN M Lab Interpretation (test Normal code = 50688-5) [facility]2022-03-28 06:05:43 Test Item Value Reference Range Interpretation Comments Magnesium (test code = 2.2 mg/dL 1.6-2.6 90358-0) BRANDI (test code = BRANDI) Anthropologist ID - HIEN M Lab Interpretation (test Normal code = 99057-2) [facility]2022-03-28 06:05:43 Test Item Value Reference Range Interpretation Comments MAGNESIUM (BEAKER) (test code = 2.2 mg/dL 1.6-2.6 627) Anthropologist ID - HIEN [facility] (Hemogram only)2021-06-29 05:32:19 Test Item Value Reference Range Interpretation Comments WBC (test code = 6690-2) 4.7 See_Comment [A utomated message] The system [employer] generated this result transmitted ref erence range: 3.5 - 10 .5 K/L. The refe rence range was not u sed to interpret this result as normal/abnor mal. RBC (test code = 789-8) 2.94 See_Comment L [Au tomated message] The system [employer] generated this result transmitted ref erence range: 3.93 - 5 .22 M/L. The refe rence range was not u sed to interpret this result as normal/abnor mal. MCHC (test code = 786-4) 31.8 See_Comment L [A utomated message] The system [employer] generated this result transmitted ref erence range: [...] L [Aut omated message] 777-3) The system [employer] generated this result transmitted ref erence range: 150 - 45 0 K/CU MM. The referen ce range was not u sed to interpret this result as normal/abnor mal. MPV (test code = 12.2 fL 9.4-12.3 03780-6) nRBC (test code = 413) 0 See_Comment [Aut omated message] The system [employer] generated this result transmitted ref erence range: 0 - 0 /1 00 WBC. The refere nce range was not u sed to interpret this result as normal/abnor mal. Lab Interpretation (test Abnormal code = 07005-9) [facility] (Hemogram only)2021-06-29 05:32:19 Test Item Value Reference Range Interpretation Comments WBC (test code = 6690-2) 4.7 See_Comment [A utomated message] The system [employer] generated this result transmitted ref erence range: 3.5 - 10 .5 K/L. The refe rence range was not u sed to interpret this result as normal/abnor mal. RBC (test code = 789-8) 2.94 See_Comment L [Au tomated message] The system [employer] generated this result transmitted ref erence range: 3.93 - 5 .22 M/L. The refe rence range was not u sed to interpret this result as normal/abnor mal. MCHC (test code = 786-4) 31.8 See_Comment L [A utomated message] The system [employer] generated this result transmitted ref erence range: [...] L [Aut omated message] 777-3) The system [employer] generated this result transmitted ref erence range: 150 - 45 0 K/CU MM. The referen ce range was not u sed to interpret this result as normal/abnor mal. MPV (test code = 12.2 fL 9.4-12.3 08204-0) nRBC (test code = 413) 0 See_Comment [Aut omated message] The system [employer] generated this result transmitted ref erence range: 0 - 0 /1 00 WBC. The refere nce range was not u sed to interpret this result as normal/abnor mal. Lab Interpretation (test Abnormal code = 86880-6) [facility] (Hemogram only)2021-06-29 05:32:19 Test Item Value Reference Range Interpretation Comments WBC (test code = 6690-2) 4.7 See_Comment [A utomated message] The system [employer] generated this result transmitted ref erence range: 3.5 - 10 .5 K/L. The refe rence range was not u sed to interpret this result as normal/abnor mal. RBC (test code = 789-8) 2.94 See_Comment L [Au tomated message] The system [employer] generated this result transmitted ref erence range: 3.93 - 5 .22 M/L. The refe rence range was not u sed to interpret this result as normal/abnor mal. MCHC (test code = 786-4) 31.8 See_Comment L [A utomated message] The system [employer] generated this result transmitted ref erence range: [...] L [Aut omated message] 777-3) The system [employer] generated this result transmitted ref erence range: 150 - 45 0 K/CU MM. The referen ce range was not u sed to interpret this result as normal/abnor mal. MPV (test code = 12.2 fL 9.4-12.3 03010-9) nRBC (test code = 413) 0 See_Comment [Aut omated message] The system [employer] generated this result transmitted ref erence range: 0 - 0 /1 00 WBC. The refere nce range was not u sed to interpret this result as normal/abnor mal. Lab Interpretation (test Abnormal code = 60048-9) [facility] (HEMOGRAM ONLY)2021-06-29 05:32:19 Test Item Value [...] WBC 0-0 (test code = 413) POC-Glucose [id number] 19:54:37 Test Item Value Reference Range Interpretation Comments POC-Glucose Meter (test 188 mg/dL 70-110 H : TE STED AT [facility] code = 1538) [address] [facility], 770 30: Anthropologist/Techni kelle ID = [id number] for RAMON SPRING Lab Interpretation (test Abnormal code = 17179-4) [facility] California[facility]-GLU[facility]SE [id number] 19:54:37 Test Item Value Reference Range Interpretation Comments POC-GLUCOSE METER 188 mg/dL 70-110 H [facility] (test code = [facility], 1538) [address]: Anthropologist/Techni kelle ID = [id number] for BURKE BRIZUELA RAMON POCT-GLUCOSE [id number] 17:33:41 Test Item Value Reference Range Interpretation Comments POC-GLUCOSE METER 166 mg/dL 70-110 H : [facility] (test code = [facility], 1538) 70545: Anthropologist/Techni kelle ID = [id number] for Nitin sammybam Kayla CBC with platelet count + automated [id number] 15:34:06 Test Item Value Reference Range Interpretation Comments WBC (test code = 6690-2) 4.6 See_Comment [A utomated message] The system [employer] generated this result transmitted ref erence range: 3.5 - 10 .5 K/L. The refe rence range was not u sed to interpret this result as normal/abnor mal. RBC (test code = 789-8) 2.86 See_Comment L [Au tomated message] The system [employer] generated this result transmitted ref erence range: 3.93 - 5 .22 M/L. The refe rence range was not u sed to interpret this result as normal/abnor mal. MCHC (test code = 786-4) 32.1 See_Comment L [A utomated message] The system [employer] generated this result transmitted ref erence range: [...] L [Aut omated message] 777-3) The system [employer] generated this result transmitted ref erence range: 150 - 45 0 K/CU MM. The referen ce range was not u sed to interpret this result as normal/abnor mal. MPV (test code = 11.0 fL 9.4-12.3 59765-6) nRBC (test code = 413) 0 See_Comment [Aut omated message] The system [employer] generated this result transmitted ref erence range: [...] See_Comment [Aut omated message] 670) The system [employer] generated this result transmitted ref erence range: 1.56 - 6 .13 K/L. The refe rence range was not u sed to interpret this result as normal/abnor mal. # Lymphs (test code = 0.73 See_Comment L [Auto mated message] 414) The system [employer] generated this result transmitted ref erence range: 1.18 - 3 .74 K/L. The refe rence range was not u sed to interpret this result as normal/abnor mal. # Monos (test code = 0.62 See_Comment H [Autom ated message] 415) The system [employer] [employer] generated this result transmitted ref erence range: 0.24 - 0 .36 K/L. The refe rence range was not u sed to interpret this result as normal/abnor mal. # Eos (test code = 416) 0.24 See_Comment [Au tomated message] The system [employer] generated this result transmitted ref erence range: 0.04 - 0 .36 K/L. The refe rence range was not u sed to interpret this result as normal/abnor mal. # Baso (test code = 417) 0.04 See_Comment [A utomated message] The system [employer] generated this result transmitted ref erence range: 0.01 - 0 .08 K/L. The refe rence range was not u sed to interpret this result as normal/abnor mal. Immature 0 % 0-1 Granulocytes-Relative (test code = 2801) Lab Interpretation (test Abnormal code = 54473-3) [facility] with platelet count + automated [id number] 15:34:06 Test Item Value Reference Range Interpretation Comments WBC (test code = 6690-2) 4.6 See_Comment [A utomated message] The system [employer] generated this result transmitted ref erence range: 3.5 - 10 .5 K/L. The refe rence range was not u sed to interpret this result as normal/abnor mal. RBC (test code = 789-8) 2.86 See_Comment L [Au tomated message] The system [employer] generated this result transmitted ref erence range: 3.93 - 5 .22 M/L. The refe rence range was not u sed to interpret this result as normal/abnor mal. MCHC (test code = 786-4) 32.1 See_Comment L [A utomated message] The system [employer] generated this result transmitted ref erence range: [...] L [Aut omated message] 777-3) The system [employer] generated this result transmitted ref erence range: 150 - 45 0 K/CU MM. The referen ce range was not u sed to interpret this result as normal/abnor mal. MPV (test code = 11.0 fL 9.4-12.3 58799-2) nRBC (test code = 413) 0 See_Comment [Aut omated message] The system [employer] generated this result transmitted ref erence range: [...] See_Comment [Aut omated message] 670) The system [employer] generated this result transmitted ref erence range: 1.56 - 6 .13 K/L. The refe rence range was not u sed to interpret this result as normal/abnor mal. # Lymphs (test code = 0.73 See_Comment L [Auto mated message] 414) The system [employer] generated this result transmitted ref erence range: 1.18 - 3 .74 K/L. The refe rence range was not u sed to interpret this result as normal/abnor mal. # Monos (test code = 0.62 See_Comment H [Autom ated message] 415) The system [employer] generated this result transmitted ref erence range: 0.24 - 0 .36 K/L. The refe rence range was not u sed to interpret this result as normal/abnor mal. # Eos (test code = 416) 0.24 See_Comment [Au tomated message] The system [employer] generated this result transmitted ref erence range: 0.04 - 0 .36 K/L. The refe rence range was not u sed to interpret this result as normal/abnor mal. # Baso (test code = 417) 0.04 See_Comment [A utomated message] The system [employer] generated this result transmitted ref erence range: 0.01 - 0 .08 K/L. The refe rence range was not u sed to interpret this result as normal/abnor mal. Immature 0 % 0-1 Granulocytes-Relative (test code = 2801) Lab Interpretation (test Abnormal code = 50758-2) [facility] with platelet count + automated [id number] 15:34:06 Test Item Value Reference Range Interpretation Comments WBC (test code = 6690-2) 4.6 See_Comment [A utomated message] The system [employer] generated this result transmitted ref erence range: 3.5 - 10 .5 K/L. The refe rence range was not u sed to interpret this result as normal/abnor mal. RBC (test code = 789-8) 2.86 See_Comment L [Au tomated message] The system [employer] generated this result transmitted ref erence range: 3.93 - 5 .22 M/L. The refe rence range was not u sed to interpret this result as normal/abnor mal. MCHC (test code = 786-4) 32.1 See_Comment L [A utomated message] The system [employer] generated this result transmitted ref erence range: [...] L [Aut omated message] 777-3) The system [employer] generated this result transmitted ref erence range: 150 - 45 0 K/CU MM. The referen ce range was not u sed to interpret this result as normal/abnor mal. MPV (test code = 11.0 fL 9.4-12.3 63110-8) nRBC (test code = 413) 0 See_Comment [Aut omated message] The system [employer] generated this result transmitted ref erence range: [...] See_Comment [Aut omated message] 670) The system [employer] generated this result transmitted ref erence range: 1.56 - 6 .13 K/L. The refe rence range was not u sed to interpret this result as normal/abnor mal. # Lymphs (test code = 0.73 See_Comment L [Auto mated message] 414) The system [employer] generated this result transmitted ref erence range: 1.18 - 3 .74 K/L. The refe rence range was not u sed to interpret this result as normal/abnor mal. # Monos (test code = 0.62 See_Comment H [Autom ated message] 415) The system [employer] generated this result transmitted ref erence range: 0.24 - 0 .36 K/L. The refe rence range was not u sed to interpret this result as normal/abnor mal. # Eos (test code = 416) 0.24 See_Comment [Au tomated message] The system [employer] generated this result transmitted ref erence range: 0.04 - 0 .36 K/L. The refe rence range was not u sed to interpret this result as normal/abnor mal. # Baso (test code = 417) 0.04 See_Comment [A utomated message] The system [employer] generated this result transmitted ref erence range: 0.01 - 0 .08 K/L. The refe rence range was not u sed to interpret this result as normal/abnor mal. Immature 0 % 0-1 Granulocytes-Relative (test code = 2801) Lab Interpretation (test Abnormal code = 38817-3) [facility] with platelet count + automated [id number] 15:34:06 Test Item Value Reference Range Interpretation Comments WBC (test code = 6690-2) 4.6 See_Comment [A utomated message] The system [employer] generated this result transmitted ref erence range: 3.5 - 10 .5 K/L. The refe rence range was not u sed to interpret this result as normal/abnor mal. RBC (test code = 789-8) 2.86 See_Comment L [Au tomated message] The system [employer] generated this result transmitted ref erence range: 3.93 - 5 .22 M/L. The refe rence range was not u sed to interpret this result as normal/abnor mal. MCHC (test code = 786-4) 32.1 See_Comment L [A utomated message] The system [employer] generated this result transmitted ref erence range: [...] = 57 See_Comment L [Aut omated message] 867-3) The system [employer] generated this result transmitted ref erence range: 150 - 45 0 K/CU MM. The referen ce range was not u sed to interpret this result as normal/abnor mal. MPV (test code = 11.0 fL 9.4-12.3 95424-0) nRBC (test code = 413) 0 See_Comment [Aut omated message] The system [employer] generated this result transmitted ref erence range: [...] See_Comment [Aut omated message] 670) The system [employer] generated this result transmitted ref erence range: 1.56 - 6 .13 K/L. The refe rence range was not u sed to interpret this result as normal/abnor mal. # Lymphs (test code = 0.73 See_Comment L [Auto mated message] 414) The system [employer] generated this result transmitted ref erence range: 1.18 - 3 .74 K/L. The refe rence range was not u sed to interpret this result as normal/abnor mal. # Monos (test code = 0.62 See_Comment H [Autom ated message] 415) The system [employer] generated this result transmitted ref erence range: 0.24 - 0 .36 K/L. The refe rence range was not u sed to interpret this result as normal/abnor mal. # Eos (test code = 416) 0.24 See_Comment [Au tomated message] The system [employer] generated this result transmitted ref erence range: 0.04 - 0 .36 K/L. The refe rence range was not u sed to interpret this result as normal/abnor mal. # Baso (test code = 417) 0.04 See_Comment [A utomated message] The system [employer] generated this result transmitted ref erence range: 0.01 - 0 .08 K/L. The refe rence range was not u sed to interpret this result as normal/abnor mal. Immature 0 % 0-1 Granulocytes-Relative (test code = 2801) Lab Interpretation (test Abnormal code = 43108-2) [facility] [id number] 15:34:06 Test Item Value Reference Range Interpretation Comments WBC (test code = 6690-2) 4.6 See_Comment [A utomated message] The system [employer] generated this result transmitted ref erence range: 3.5 - 10 .5 K/L. The refe rence range was not u sed to interpret this result as normal/abnor mal. RBC (test code = 789-8) 2.86 See_Comment L [Au tomated message] The system [employer] generated this result transmitted ref erence range: 3.93 - 5 .22 M/L. The refe rence range was not u sed to interpret this result as normal/abnor mal. MCHC (test code = 786-4) 32.1 See_Comment L [A utomated message] The system [employer] generated this result transmitted ref erence range: [...] L [Aut omated message] 777-3) The system [employer] generated this result transmitted ref erence range: 150 - 45 0 K/CU MM. The referen ce range was not u sed to interpret this result as normal/abnor mal. MPV (test code = 11.0 fL 9.4-12.3 54888-1) nRBC (test code = 413) 0 See_Comment [Aut omated message] The system [employer] generated this result transmitted ref erence range: [...] See_Comment [Aut omated message] 670) The system [employer] generated this result transmitted ref erence range: 1.56 - 6 .13 K/L. The refe rence range was not u sed to interpret this result as normal/abnor mal. # Lymphs (test code = 0.73 See_Comment L [Auto mated message] 414) The system [employer] generated this result transmitted ref erence range: 1.18 - 3 .74 K/L. The refe rence range was not u sed to interpret this result as normal/abnor mal. # Monos (test code = 0.62 See_Comment H [Autom ated message] 415) The system [employer] generated this result transmitted ref erence range: 0.24 - 0 .36 K/L. The refe rence range was not u sed to interpret this result as normal/abnor mal. # Eos (test code = 416) 0.24 See_Comment [Au tomated message] The system [employer] generated this result transmitted ref erence range: 0.04 - 0 .36 K/L. The refe rence range was not u sed to interpret this result as normal/abnor mal. # Baso (test code = 417) 0.04 See_Comment [A utomated message] The system [employer] generated this result transmitted ref erence range: 0.01 - 0 .08 K/L. The refe rence range was not u sed to interpret this result as normal/abnor mal. Immature 0 % 0-1 Granulocytes-Relative (test code = 2801) Lab Interpretation (test Abnormal code = 70532-0) [facility] with platelet count + automated [id number] 15:34:06 Test Item Value Reference Range Interpretation Comments WBC (test code = 6690-2) 4.6 See_Comment [A utomated message] The system [employer] generated this result transmitted ref erence range: 3.5 - 10 .5 K/L. The refe rence range was not u sed to interpret this result as normal/abnor mal. RBC (test code = 789-8) 2.86 See_Comment L [Au tomated message] The system [employer] generated this result transmitted ref erence range: 3.93 - 5 .22 M/L. The refe rence range was not u sed to interpret this result as normal/abnor mal. MCHC (test code = 786-4) 32.1 See_Comment L [A utomated message] The system [employer] generated this result transmitted ref erence range: [...] L [Aut omated message] 777-3) The system [employer] generated this result transmitted ref erence range: 150 - 45 0 K/CU MM. The referen ce range was not u sed to interpret this result as normal/abnor mal. MPV (test code = 11.0 fL 9.4-12.3 68560-6) nRBC (test code = 413) 0 See_Comment [Aut omated message] The system [employer] generated this result transmitted ref erence range: [...] See_Comment [Aut omated message] 670) The system [employer] generated this result transmitted ref erence range: 1.56 - 6 .13 K/L. The refe rence range was not u sed to interpret this result as normal/abnor mal. # Lymphs (test code = 0.73 See_Comment L [Auto mated message] 414) The system [employer] generated this result transmitted ref erence range: 1.18 - 3 .74 K/L. The refe rence range was not u sed to interpret this result as normal/abnor mal. # Monos (test code = 0.62 See_Comment H [Autom ated message] 415) The system [employer] generated this result transmitted ref erence range: 0.24 - 0 .36 K/L. The refe rence range was not u sed to interpret this result as normal/abnor mal. # Eos (test code = 416) 0.24 See_Comment [Au tomated message] The system [employer] generated this result transmitted ref erence range: 0.04 - 0 .36 K/L. The refe rence range was not u sed to interpret this result as normal/abnor mal. # Baso (test code = 417) 0.04 See_Comment [A utomated message] The system [employer] generated this result transmitted ref erence range: 0.01 - 0 .08 K/L. The refe rence range was not u sed to interpret this result as normal/abnor mal. Immature 0 % 0-1 Granulocytes-Relative (test code = 2801) Lab Interpretation (test Abnormal code = 04027-7) [facility] with platelet count + automated [id number] 15:34:06 Test Item Value Reference Range Interpretation Comments WBC (test code = 6690-2) 4.6 See_Comment [A utomated message] The system [employer] generated this result transmitted ref erence range: 3.5 - 10 .5 K/L. The refe rence range was not u sed to interpret this result as normal/abnor mal. RBC (test code = 789-8) 2.86 See_Comment L [Au tomated message] The system [employer] generated this result transmitted ref erence range: 3.93 - 5 .22 M/L. The refe rence range was not u sed to interpret this result as normal/abnor mal. MCHC (test code = 786-4) 32.1 See_Comment L [A utomated message] The system [employer] generated this result transmitted ref erence range: [...] L [Aut omated message] 777-3) The system [employer] generated this result transmitted ref erence range: 150 - 45 0 K/CU MM. The referen ce range was not u sed to interpret this result as normal/abnor mal. MPV (test code = 11.0 fL 9.4-12.3 39586-0) nRBC (test code = 413) 0 See_Comment [Aut omated message] The system [employer] generated this result transmitted ref erence range: [...] See_Comment [Aut omated message] 670) The system [employer] generated this result transmitted ref erence range: 1.56 - 6 .13 K/L. The refe rence range was not u sed to interpret this result as normal/abnor mal. # Lymphs (test code = 0.73 See_Comment L [Auto mated message] 414) The system [employer] generated this result transmitted ref erence range: 1.18 - 3 .74 K/L. The refe rence range was not u sed to interpret this result as normal/abnor mal. # Monos (test code = 0.62 See_Comment H [Autom ated message] 415) The system [employer] generated this result transmitted ref erence range: 0.24 - 0 .36 K/L. The refe rence range was not u sed to interpret this result as normal/abnor mal. # Eos (test code = 416) 0.24 See_Comment [Au tomated message] The system [employer] generated this result transmitted ref erence range: 0.04 - 0 .36 K/L. The refe rence range was not u sed to interpret this result as normal/abnor mal. # Baso (test code = 417) 0.04 See_Comment [A utomated message] The system [employer] generated this result transmitted ref erence range: 0.01 - 0 .08 K/L. The refe rence range was not u sed to interpret this result as normal/abnor mal. Immature 0 % 0-1 Granulocytes-Relative (test code = 2801) Lab Interpretation (test Abnormal code = 30993-3) [facility] [id number] 15:34:06 Test Item Value Reference Range Interpretation Comments WBC (test code = 6690-2) 4.6 See_Comment [A utomated message] The system [employer] generated this result transmitted ref erence range: 3.5 - 10 .5 K/L. The refe rence range was not u sed to interpret this result as normal/abnor mal. RBC (test code = 789-8) 2.86 See_Comment L [Au tomated message] The system [employer] generated this result transmitted ref erence range: 3.93 - 5 .22 M/L. The refe rence range was not u sed to interpret this result as normal/abnor mal. MCHC (test code = 786-4) 32.1 See_Comment L [A utomated message] The system [employer] generated this result transmitted ref erence range: [...] L [Aut omated message] 777-3) The system [employer] generated this result transmitted ref erence range: 150 - 45 0 K/CU MM. The referen ce range was not u sed to interpret this result as normal/abnor mal. MPV (test code = 11.0 fL 9.4-12.3 21858-1) nRBC (test code = 413) 0 See_Comment [Aut omated message] The system [employer] generated this result transmitted ref erence range: [...] See_Comment [Aut omated message] 670) The system [employer] generated this result transmitted ref erence range: 1.56 - 6 .13 K/L. The refe rence range was not u sed to interpret this result as normal/abnor mal. # Lymphs (test code = 0.73 See_Comment L [Auto mated message] 414) The system [employer] generated this result transmitted ref erence range: 1.18 - 3 .74 K/L. The refe rence range was not u sed to interpret this result as normal/abnor mal. # Monos (test code = 0.62 See_Comment H [Autom ated message] 415) The system [employer] generated this result transmitted ref erence range: 0.24 - 0 .36 K/L. The refe rence range was not u sed to interpret this result as normal/abnor mal. # Eos (test code = 416) 0.24 See_Comment [Au tomated message] The system [employer] generated this result transmitted ref erence range: 0.04 - 0 .36 K/L. The refe rence range was not u sed to interpret this result as normal/abnor mal. # Baso (test code = 417) 0.04 See_Comment [A utomated message] The system [employer] generated this result transmitted ref erence range: 0.01 - 0 .08 K/L. The refe rence range was not u sed to interpret this result as normal/abnor mal. Immature 0 % 0-1 Granulocytes-Relative (test code = 2801) Lab Interpretation (test Abnormal code = 48969-1) [facility] with platelet count + automated [id number] 15:34:06 Test Item Value Reference Range Interpretation Comments WBC (test code = 6690-2) 4.6 See_Comment [A utomated message] The system [employer] generated this result transmitted ref erence range: 3.5 - 10 .5 K/L. The refe rence range was not u sed to interpret this result as normal/abnor mal. RBC (test code = 789-8) 2.86 See_Comment L [Au tomated message] The system [employer] generated this result transmitted ref erence range: 3.93 - 5 .22 M/L. The refe rence range was not u sed to interpret this result as normal/abnor mal. MCHC (test code = 786-4) 32.1 See_Comment L [A utomated message] The system [employer] generated this result transmitted ref erence range: [...] L [Aut omated message] 777-3) The system [employer] generated this result transmitted ref erence range: 150 - 45 0 K/CU MM. The referen ce range was not u sed to interpret this result as normal/abnor mal. MPV (test code = 11.0 fL 9.4-12.3 16006-8) nRBC (test code = 413) 0 See_Comment [Aut omated message] The system [employer] generated this result transmitted ref erence range: [...] See_Comment [Aut omated message] 670) The system [employer] generated this result transmitted ref erence range: 1.56 - 6 .13 K/L. The refe rence range was not u sed to interpret this result as normal/abnor mal. # Lymphs (test code = 0.73 See_Comment L [Auto mated message] 414) The system [employer] generated this result transmitted ref erence range: 1.18 - 3 .74 K/L. The refe rence range was not u sed to interpret this result as normal/abnor mal. # Monos (test code = 0.62 See_Comment H [Autom ated message] 415) The system [employer] generated this result transmitted ref erence range: 0.24 - 0 .36 K/L. The refe rence range was not u sed to interpret this result as normal/abnor mal. # Eos (test code = 416) 0.24 See_Comment [Au tomated message] The system [employer] generated this result transmitted ref erence range: 0.04 - 0 .36 K/L. The refe rence range was not u sed to interpret this result as normal/abnor mal. # Baso (test code = 417) 0.04 See_Comment [A utomated message] The system [employer] generated this result transmitted ref erence range: 0.01 - 0 .08 K/L. The refe rence range was not u sed to interpret this result as normal/abnor mal. Immature 0 % 0-1 Granulocytes-Relative (test code = 2801) Lab Interpretation (test Abnormal code = 10931-3) [facility] [id number] 15:34:06 Test Item Value Reference Range Interpretation Comments WBC (test code = 6690-2) 4.6 See_Comment [A utomated message] The system [employer] generated this result transmitted ref erence range: 3.5 - 10 .5 K/L. The refe rence range was not u sed to interpret this result as normal/abnor mal. RBC (test code = 789-8) 2.86 See_Comment L [Au tomated message] The system [employer] generated this result transmitted ref erence range: 3.93 - 5 .22 M/L. The refe rence range was not u sed to interpret this result as normal/abnor mal. MCHC (test code = 786-4) 32.1 See_Comment L [A utomated message] The system [employer] generated this result transmitted ref erence range: [...] L [Aut omated message] 777-3) The system [employer] generated this result transmitted ref erence range: 150 - 45 0 K/CU MM. The referen ce range was not u sed to interpret this result as normal/abnor mal. MPV (test code = 11.0 fL 9.4-12.3 09700-5) nRBC (test code = 413) 0 See_Comment [Aut omated message] The system [employer] generated this result transmitted ref erence range: [...] See_Comment [Aut omated message] 670) The system [employer] generated this result transmitted ref erence range: 1.56 - 6 .13 K/L. The refe rence range was not u sed to interpret this result as normal/abnor mal. # Lymphs (test code = 0.73 See_Comment L [Auto mated message] 414) The system [employer] generated this result transmitted ref erence range: 1.18 - 3 .74 K/L. The refe rence range was not u sed to interpret this result as normal/abnor mal. # Monos (test code = 0.62 See_Comment H [Autom ated message] 415) The system [employer] generated this result transmitted ref erence range: 0.24 - 0 .36 K/L. The refe rence range was not u sed to interpret this result as normal/abnor mal. # Eos (test code = 416) 0.24 See_Comment [Au tomated message] The system [employer] generated this result transmitted ref erence range: 0.04 - 0 .36 K/L. The refe rence range was not u sed to interpret this result as normal/abnor mal. # Baso (test code = 417) 0.04 See_Comment [A utomated message] The system [employer] generated this result transmitted ref erence range: 0.01 - 0 .08 K/L. The refe rence range was not u sed to interpret this result as normal/abnor mal. Immature 0 % 0-1 Granulocytes-Relative (test code = 2801) Lab Interpretation (test Abnormal code = 92905-4) [facility] W/PLT COUNT & AUTO [id number] 15:34:06 Test Item Value Reference Range Interpretation [...] PERCENT (BEAKER) (test code = 2801) POCT-GLUCOSE [id number] 12:42:57 Test Item Value Reference Range Interpretation Comments POC-GLUCOSE METER 216 mg/dL 70-110 H : TESTED A T [facility] 6720 (BEAKER) (test code = [facility], 1538) [address]86: Anthropologist/Techni kelle ID = [id number] for Kayla Emanuel Prepare Leuko-Red [id number] 10:49:00 Test Item Value Reference Range Interpretation Comments CROSSMATCH (test code = 2264) COMPATIBLE Unit ABO (test code = O Pos 2037824) UNIT NUMBER (test code = [id number] 934-0) Status (test code = 1473281) ISSUED Blood Bank Product (test code RED BLOOD CELLS = 2263) PRODUCT CODE (test code = P6468M26 933-2) [facility] California[facility] Leuko-Red [id number] 10:49:00 Test Item Value Reference Range Interpretation Comments CROSSMATCH (test code = 2264) COMPATIBLE Unit ABO (test code = O Pos 4998982) UNIT NUMBER (test code = [id number] 934-0) Status (test code = 1118238) ISSUED Blood Bank Product (test code RED BLOOD CELLS = 2263) PRODUCT CODE (test code = J9221P80 933-2) [facility] California[facility] Leuko-Red [id number] 10:49:00 Test Item Value Reference Range Interpretation Comments CROSSMATCH (test code = 2264) COMPATIBLE Unit ABO (test code = O Pos 4568602) UNIT NUMBER (test code = [id number] 934-0) Status (test code = 8520163) ISSUED Blood Bank Product (test code RED BLOOD CELLS = 2263) PRODUCT CODE (test code = P7810R70 933-2) [facility] CaliforniaPOCT-GLUCOSE [id number] 08:43:51 Test Item Value Reference Range Interpretation Comments POC-GLUCOSE METER 209 mg/dL 70-110 H : TESTED A T [facility] 6720 (BEAKER) (test code = QUIQUEND Nola [facility], 153) 280[address]: Anthropologist/Techni kelle ID = [id number] for Kayla Emanuel RAD, CHEST, 1 VIEW, NON [id number] 07:26:00Reason for exam:->post-opShould this be performed at the bedside?->Yes [facility] 1955 [...] MDReport Verified Date/Time: 06/28/2021 07:26:22 BASIC METABOLIC [id number] 04:56:45 Test Item Value Reference Range Interpretation [...] S NOT APPLICABLE FOR DIALYSIS PATIEN TS. Anthropologist ID - LIANA [id number] 04:48:49 Test Item Value Reference Range Interpretation Comments MAGNESIUM (BEAKER) 2.0 mg/dL 1.6-2.6 Specimen slightly (test code = 627) hemolyzed Anthropologist ID - LIANA VAUJEQXVXEX4600-57-97 04:48:49 Test Item Value Reference Range Interpretation Comments PHOSPHORUS (BEAKER) 2.5 mg/dL 2.3-4.7 Specimen slightly (test code = 604) hemolyzed Anthropologist ID Bassam GAINES LCBC (HEMOGRAM ONLY)2021-06-28 04:28:17 Test Item Value [...] WBC 0-0 (test code = 413) POCT-GLUCOSE [id number] 21:38:17 Test Item Value Reference Range Interpretation Comments POC-GLUCOSE METER 200 mg/dL 70-110 H : TESTED A T [facility] 6720 (BEAKER) (test code = [facility], 1538) 97351: Anthropologist/Techni kelle ID = [id number] for MACKENZIE GONZALEZ POCT-GLUCOSE [id number] 18:02:45 Test Item Value Reference Range Interpretation Comments POC-GLUCOSE METER 217 mg/dL 70-110 H : TESTED A T [facility] 6720 (BEAKER) (test code = [facility], 1538) 87333: Anthropologist/Techni kelle ID = [id number] for Nitin rrera, Kayla POCT-GLUCOSE [id number] 15:14:18 Test Item Value Reference Range Interpretation Comments POC-GLUCOSE METER 229 mg/dL 70-110 H : TESTED A T [facility] 6720 (BEAKER) (test code = [facility], 1538) 17530: Anthropologist/Techni kelle ID = [id number] for Ba rrera, Kayla POCT-GLUCOSE [id number] 12:20:23 Test Item Value Reference Range Interpretation Comments POC-GLUCOSE METER 160 mg/dL 70-110 H : TESTED A T [facility] 6720 (BEAKER) (test code = [facility], 1538) 83429: Anthropologist/Techni kelle ID = [id number] for Ba rrera, Kayla SARS-CoV2/RT-PCR (Asymptomatic ONLY)2021-06-27 10:39:35 Test Item Value Reference Range Interpretation Comments SARS-COV2/RT-PCR Negative Not Detected, (test code = Negative, See 71123-6) external report for linked test SARS-COV-2 [facility] PERFORM[facility] (test code = 23885-7) BRANDI (test code = Negative result for [...] of the Act. Fact Sheet for Healthcare Providers:https://www.Imagistx/sites/default/f radha/product/documents/F act_Sheet_HC_Providers_L vmy_JHKZ-OuD-0.pdf Fact Sheet for Healthcare Patients:https://www.BTC Trip/sites/default/fi les/product/documents/Fa ct_Sheet_Patients_Lyra_S ARS-CoV-2.pdf Performing Laboratory:[facility] [place] [address] [facility] (Asymptomatic ONLY)2021-06-27 10:39:35 Test Item Value Reference Range Interpretation Comments SARS-COV2/RT-PCR Negative Not Detected, (test code = Negative, See 32260-9) external report for linked test SARS-COV-2 [facility] (test code = 47147-1) BRANDI (test code = Negative result for [...] of the Act. Fact Sheet for Healthcare Providers:https://www.Imagistx/sites/default/f radha/product/documents/F act_Sheet_HC_Providers_L bki_BHEG-SwS-0.pdf Fact Sheet for Healthcare Patients:https://www.BTC Trip/sites/default/fi les/product/documents/Fa ct_Sheet_Patients_Lyra_S ARS-CoV-2.pdf Performing Laboratory:[facility] [place] [address] [facility]ARS[facility] (Asymptomatic ONLY)2021-06-27 10:39:35 Test Item Value Reference Range Interpretation Comments SARS-COV2/RT-PCR Negative Not Detected, (test code = Negative, See 55273-9) external report for linked test SARS-COV-2 [facility] (test code = 47421-9) BRANDI (test code = Negative result for [...] of the Act. Fact Sheet for Healthcare Providers:https://www.Imagistx/sites/default/f radha/product/documents/F act_Sheet_HC_Providers_L ngp_CVVP-SmB-7.pdf Fact Sheet for Healthcare Patients:https://www.BTC Trip/sites/default/fi les/product/documents/Fa ct_Sheet_Patients_Lyra_S ARS-CoV-2.pdf Performing Laboratory:[facility] [place] [address] [facility] (Asymptomatic ONLY)2021-06-27 10:39:35 Test Item Value Reference Range Interpretation Comments SARS-COV2/RT-PCR Negative Not Detected, (test code = Negative, See 17131-7) external report for linked test SARS-COV-2 [facility] (test code = 60776-7) BRANDI (test code = Negative result for [...] of the Act. Fact Sheet for Healthcare Providers:https://www.CaseTrek idel.com/sites/default/f radha/product/documents/F act_Sheet_HC_Providers_L zsw_ZCDR-MfS-5.pdf Fact Sheet for Healthcare Patients:https://www.ankur del.[place]/sites/default/fi les/product/documents/Fa ct_Sheet_Patients_Lyra_S ARS-CoV-2.pdf Performing Laboratory:[facility] [place] [address] [facility] (Asymptomatic ONLY)2021-06-27 10:39:35 Test Item Value Reference Range Interpretation Comments SARS-COV2/RT-PCR Negative Not Detected, (test code = Negative, See 23290-1) external report for linked test SARS-COV-2 [facility] (test code = 46792-7) BRANDI (test code = Negative result for [...] of the Act. Fact Sheet for Healthcare Providers:https://www.CaseTrek idel.[place]/sites/default/f radha/product/documents/F act_Sheet_HC_Providers_L fsl_TGEW-BtR-7.pdf Fact Sheet for Healthcare Patients:https://www.uGenius Technology del.com/sites/default/fi les/product/documents/Fa ct_Sheet_Patients_Lyra_S ARS-CoV-2.pdf Performing Laboratory:[facility] [place] [address] [facility]ARS[facility] (Asymptomatic ONLY)2021-06-27 10:39:35 Test Item Value Reference Range Interpretation Comments SARS-COV2/RT-PCR Negative Not Detected, (test code = Negative, See 67236-3) external report for linked test SARS-COV-2 [facility] (test code = 02566-6) BRANDI (test code = Negative result for [...] of the Act. Fact Sheet for Healthcare Providers:https://www.[employer].[place]/sites/default/f radha/product/documents/F act_Sheet_HC_Providers_L rzk_LWNJ-OdF-6.pdf Fact Sheet for Healthcare Patients:https://www.Finanzchef24.[place]/sites/default/fi les/product/documents/Fa ct_Sheet_Patients_Ly_S ARS-CoV-2.pdf Performing Laboratory:[facility] [place] [address] [facility]ARS[facility] (Asymptomatic ONLY)2021-06-27 10:39:35 Test Item Value Reference Range Interpretation Comments SARS-COV2/RT-PCR Negative Not Detected, (test code = Negative, See 19414-0) external report for linked test SARS-COV-2 [facility] (test code = 78470-2) BRANDI (test code = Negative result for [...] of the Act. Fact Sheet for Healthcare Providers:https://www.qu [employer]in [employer]/sites/default/f radha/product/documents/F act_Sheet_HC_Providers_L gqb_XOXE-FfD-2.pdf Fact Sheet for Healthcare Patients:https://www.BTC Trip/sites/default/fi les/product/documents/Fa ct_Sheet_Patients_Lyra_S ARS-CoV-2.pdf Performing Laboratory:[facility] [place] [address] [facility]ARS-[facility]OV2/[facility] ([facility])2021-06-27 10:39:35 Test Item Value Reference Range Interpretation Comments SARS-COV2/RT-PCR (test Negative Not Detected, Negative, code = 8912423) See external report for linked test SARS-COV-2 PERFORMING LAB [facility] (test code = 4040548) Negative result for this test determines that [...] of the Act.Fact Sheet for Healthcare Prov iders:https://www.Omnisens/sites/default/files/product/documents/Fact_Sheet_HC _Djjyxqcft_Bwpm_PPIA-OwW-1.pdfFact Sheet for Healthcare Patients:https://www.Omnisens/sites/default/files/product/docume nts/Bhqk_Puoim_Lrgvgiuq_Yxic_NZUL-GnI-1.pdfPerforming Laboratory:[facility], [place] [address]HFKI-TRIONTB METER 2021-06-27 08:35:14 Test Item Value Reference Range Interpretation Comments POC-GLUCOSE METER 99 mg/dL 70-110 : TESTED A T [facility] 6720 (BEAKER) (test code = QUIQUEANTELMO Vaca [facility], 1538) 58438: Anthropologist/Techni kelle ID = [id number] for Huerta bam Kayla RAD, CHEST, 1 VIEW, NON [id number] 08:17:00Reason for exam:->post-opShould this be performed at the bedside?->Yes [facility] [place] : 1955 Sex: FFINAL REPORT Chest, one view HISTORY: Postoperative Comparison: 06/26/2021 Findings: Lungs: Mild bilateral interstitial opacities, likely pulmonary venous congestion. No significant change. Heart: Unchanged moderate cardiomegaly. Pleura: No pleural effusion or pneumothorax. Bones: Unremarkable. Lines/tubes: Unchanged in position. Signed: Erlin Carr Verified Date/Time: 06/27/2021 08:17:45 Reading Location: [address] Consult Reading Room BASIC METABOLIC [id number] 05:32:33 Test Item Value Reference Range Interpretation [...] S NOT APPLICABLE FOR DIALYSIS PATIEN TS. Anthropologist ID - HIEN KYEXTZXTMLS9805-12-01 05:23:42 Test Item Value Reference Range Interpretation Comments PHOSPHORUS (BEAKER) (test code = 2.2 mg/dL 2.3-4.7 L 604) Anthropologist ID - HIEN FTHJMNEWST5485-85-15 05:23:41 Test Item Value Reference Range Interpretation Comments MAGNESIUM (BEAKER) (test code = 1.8 mg/dL 1.6-2.6 627) Anthropologist ID - HIEN [id number] 05:19:04 Test Item Value Reference Range Interpretation Comments PTT (test code = 40171-2) 35.8 See_Comment [ Automated message] The system [employer] generated this result transmitted ref erence range: 22.5 - 3 6.0 seconds. The re ference range was not u sed to interpret this result as normal/abnor mal. Lab Interpretation (test Normal code = 50553-6) [place] 82951022-03-26 05:19:04 Test Item Value Reference Range Interpretation Comments PTT (test code = 31948-8) 35.8 See_Comment [ Automated message] The system [employer] generated this result transmitted ref erence range: 22.5 - 3 6.0 seconds. The re ference range was not u sed to interpret this result as normal/abnor mal. Lab Interpretation (test Normal code = 14291-0) [place] 82951022-03-26 05:19:04 Test Item Value Reference Range Interpretation Comments PTT (test code = 82763-5) 35.8 See_Comment [ Automated message] The system [employer] generated this result transmitted ref erence range: 22.5 - 3 6.0 seconds. The re ference range was not u sed to interpret this result as normal/abnor mal. Lab Interpretation (test Normal code = 24559-9) [place] 82951022-03-26 05:19:04 Test Item Value Reference Range Interpretation Comments PTT (test code = 69259-8) 35.8 See_Comment [ Automated message] The system [employer] generated this result transmitted ref erence range: 22.5 - 3 6.0 seconds. The re ference range was not u sed to interpret this result as normal/abnor mal. Lab Interpretation (test Normal code = 99367-0) [place] 82951022-03-26 05:19:04 Test Item Value Reference Range Interpretation Comments PTT (test code = 66428-4) 35.8 See_Comment [ Automated message] The system [employer] generated this result transmitted ref erence range: 22.5 - 3 6.0 seconds. The re ference range was not u sed to interpret this result as normal/abnor mal. Lab Interpretation (test Normal code = 14983-3) [place] 82951022-03-26 05:19:04 Test Item Value Reference Range Interpretation Comments PTT (test code = 99666-2) 35.8 See_Comment [ Automated message] The system [employer] generated this result transmitted ref erence range: 22.5 - 3 6.0 seconds. The re ference range was not u sed to interpret this result as normal/abnor mal. Lab Interpretation (test Normal code = 46699-1) [facility] Test Item Value Reference Range Interpretation Comments PTT (test code = 49324-7) 35.8 See_Comment [ Automated message] The system [employer] generated this result transmitted ref erence range: 22.5 - 3 6.0 seconds. The re ference range was not u sed to interpret this result as normal/abnor mal. Lab Interpretation (test Normal code = 72906-0) [place] 82951022-03-26 05:19:04 Test Item Value Reference Range Interpretation Comments PTT (test code = 11405-7) 35.8 See_Comment [ Automated message] The system [employer] generated this result transmitted ref erence range: 22.5 - 3 6.0 seconds. The re ference range was not u sed to interpret this result as normal/abnor mal. Lab Interpretation (test Normal code = 39104-4) [place] 82951022-03-26 05:19:04 Test Item Value Reference Range Interpretation Comments PTT (test code = 93612-7) 35.8 See_Comment [ Automated message] The system [employer] generated this result transmitted ref erence range: 22.5 - 3 6.0 seconds. The re ference range was not u sed to interpret this result as normal/abnor mal. Lab Interpretation (test Normal code = 04083-5) [facility] Test Item Value Reference Range Interpretation Comments PTT (test code = 72334-6) 35.8 See_Comment [ Automated message] The system [employer] generated this result transmitted ref erence range: 22.5 - 3 6.0 seconds. The re ference range was not u sed to interpret this result as normal/abnor mal. Lab Interpretation (test Normal code = 50472-6) [place] 24685022-03-26 05:19:04 Test Item Value Reference Range Interpretation Comments PARTIAL THROMBOPLASTIN TIME 35.8 seconds 22.5-36.0 (BEAKER) (test code = 760) Prothrombin time/[id number] 05:18:23 Test Item Value Reference Interpretation Comments [...] valves. Lab Interpretation Normal (test code = 37359-1) [facility] CaliforniaProthrombin time/[id number] 05:18:23 Test Item Value Reference Interpretation Comments [...] valves. Lab Interpretation Normal (test code = 38624-1) [facility] CaliforniaProthrombin time/[id number] 05:18:23 Test Item Value Reference Interpretation Comments Range Protime (test code = 13.9 See_Comment [Autom ated 5902-2) message] The system which generated this result transmitted reference range : 11.9 - 14.2 seconds. The reference range was not used to interpret this result as normal/abnormal . INR (test code = 1.09 See_Comment [Automated Zolvers1-6) message] The system which generated this result [...] valves. Lab Interpretation Normal (test code = 06837-4) [facility] CaliforniaProthrombin time/[id number] 05:18:23 Test Item Value Reference Interpretation Comments Range Protime (test code = 13.9 See_Comment [Autom ated 5902-2) message] The system which generated this result transmitted reference range : 11.9 - 14.2 seconds. The reference range was not used to interpret this result as normal/abnormal . INR (test code = 1.09 See_Comment [Automated Zolvers1-6) message] The system which generated this result [...] valves. Lab Interpretation Normal (test code = 45986-8) [facility] CaliforniaProthrombin time/[id number] 05:18:23 Test Item Value Reference Interpretation Comments Range Protime (test code = 13.9 See_Comment [Autom ated 5902-2) message] The system which generated this result transmitted reference range : 11.9 - 14.2 seconds. The reference range was not used to interpret this result as normal/abnormal . INR (test code = 1.09 See_Comment [Automated Zolvers1-6) message] The system which generated this result [...] valves. Lab Interpretation Normal (test code = 00787-6) [facility] CaliforniaProthrombin time/[id number] 05:18:23 Test Item Value Reference Interpretation Comments [...] valves. Lab Interpretation Normal (test code = 10158-8) [facility] CaliforniaProthrombin time/[id number] 05:18:23 Test Item Value Reference Interpretation Comments [...] valves. Lab Interpretation Normal (test code = 32688-9) [facility] CaliforniaProthrombin time/[id number] 05:18:23 Test Item Value Reference Interpretation Comments [...] valves. Lab Interpretation Normal (test code = 02696-1) [facility] CaliforniaProthrombin time/[id number] 05:18:23 Test Item Value Reference Interpretation Comments [...] valves. Lab Interpretation Normal (test code = 80250-6) [facility] CaliforniaProthrombin time/[id number] 05:18:23 Test Item Value Reference Interpretation Comments Range Protime (test code = 13.9 See_Comment [Autom ated 5902-2) message] The system which generated this result transmitted reference range : 11.9 - 14.2 seconds. The reference range was not used to interpret this result as normal/abnormal . INR (test code = 1.09 See_Comment [Automated 2447-6) message] The system which generated this result [...] valves. Lab Interpretation Normal (test code = 34473-1) [facility] CaliforniaPROTHROMBIN TIME/[id number] 05:18:23 Test Item Value Reference Range Interpretation Comments PROTIME (BEAKER) 13.9 seconds 11.9-14.2 (test code = 759) INR (BEAKER) (test 1.09 See_Comment [Automat ed message] code = 370) The system [employer] generated this result transmitted ref erence range: [...] WBC 0-0 (test code = 413) POCT-GLUCOSE [id number] 21:11:10 Test Item Value Reference Range Interpretation Comments POC-GLUCOSE METER 158 mg/dL 70-110 H : TESTED A T [facility] 6720 (BEAKER) (test code = YUDY Vaca [facility], 1538) 898[address]: Anthropologist/Techni kelle ID = [id number] for Re yes, Sairy POCT-GLUCOSE [id number] 19:06:56 Test Item Value Reference Range Interpretation Comments POC-GLUCOSE METER 113 mg/dL 70-110 H : TESTED A T [facility] 6720 (BEAKER) (test code [facility], = 1538) 45128: Anthropologist/Techni kelle ID = [id number] for Fadi Nolan Hemoglobin and nwdatfrzyq2572-39-96 11:43:32 Test Item Value Reference Range Interpretation [...] = 4544-3) BRANDI (test code = BRANDI) Anthropologist ID - [id number] Lab Interpretation Abnormal (test code = 97147-6) [facility] CaliforniaHemoglobin and hbrdedojkw2729-93-51 11:43:32 Test Item Value Reference Range Interpretation [...] = 4544-3) BRANDI (test code = BRANDI) Anthropologist ID - [id number] Lab Interpretation Abnormal (test code = 21626-9) [facility] CaliforniaHemoglobin and gmxiioilgm6278-08-13 11:43:32 Test Item Value Reference Range Interpretation [...] = 4544-3) BRANDI (test code = BRANDI) Anthropologist ID - [id number] Lab Interpretation Abnormal (test code = 47311-3) [facility] CaliforniaHemoglobin and lfllaltumk9272-98-33 11:43:32 Test Item Value Reference Range Interpretation [...] = 4544-3) BRANDI (test code = BRANDI) Anthropologist ID - [id number] Lab Interpretation Abnormal (test code = 71493-3) [facility] CaliforniaHemoglobin and khmnktrzun9802-14-31 11:43:32 Test Item Value Reference Range Interpretation [...] = 4544-3) BRANDI (test code = BRANDI) Anthropologist ID - [id number] Lab Interpretation Abnormal (test code = 66272-1) [facility] CaliforniaHemoglobin and edmmqvrbzv3176-24-48 11:43:32 Test Item Value Reference Range Interpretation [...] = 4544-3) BRANDI (test code = BRANDI) Anthropologist ID - [id number] Lab Interpretation Abnormal (test code = 72326-5) [facility] CaliforniaHemoglobin and lewgfqzqwt6136-24-05 11:43:32 Test Item Value Reference Range Interpretation [...] = 4544-3) BRANDI (test code = BRANDI) Anthropologist ID - [id number] Lab Interpretation Abnormal (test code = 93718-7) [facility] CaliforniaHemoglobin and guamygywwz2992-34-60 11:43:32 Test Item Value Reference Range Interpretation [...] = 4544-3) BRANDI (test code = BRANDI) Anthropologist ID - [id number] Lab Interpretation Abnormal (test code = 81846-9) [facility] CaliforniaHemoglobin and azhkqrmqik2920-61-74 11:43:32 Test Item Value Reference Range Interpretation [...] = 4544-3) BRANDI (test code = BRANDI) Anthropologist ID - [id number] Lab Interpretation Abnormal (test code = 38582-1) [facility] CaliforniaHemoglobin and cixgfjkqde2299-88-74 11:43:32 Test Item Value Reference Range Interpretation [...] = 4544-3) BRANDI (test code = BRANDI) Anthropologist ID - [id number] Lab Interpretation Abnormal (test code = 95508-9) [facility] CaliforniaHemoglobin and acmcnbiuah1437-66-65 11:43:32 Test Item Value Reference Range Interpretation [...] = 4544-3) BRANDI (test code = BRANDI) Anthropologist ID - [id number] Lab Interpretation Abnormal (test code = 80798-5) [facility] CaliforniaHEMOGLOBIN AND RWEGJSWAKN3007-46-27 11:43:32 Test Item Value Reference Range Interpretation Comments HEMOGLOBIN (BEAKER) (test code = 8.5 GM/DL 11.2-15.7 L 410) HEMATOCRIT (BEAKER) (test code = 26.8 % 34.1-44.9 L 411) Anthropologist ID - [id number]-Glucose xiqzo2027-39-23 11:26:36 Test Item Value Reference Range Interpretation Comments POC-Glucose Meter (test 126 mg/dL 70-110 H : TE STED AT [facility] code = 1538) 6720 [facility], 770 30: Anthropologist/Techni kelle ID = [id number] for Ector (contract)Meeta Lab Interpretation (test Abnormal code = 96420-7) [facility] CaliforniaPOCT-GLUCOSE FBPGN4731-17-27 11:26:36 Test Item Value Reference Range Interpretation Comments POC-GLUCOSE METER 126 mg/dL 70-110 H : TESTED A T [facility] 6720 (BEAKER) (test code = YUDY Vaca [facility], 1538) 52983: Anthropologist/Techni kelle ID = [id number] for Brando wayne (contract)Marilee POCT-GLUCOSE [id number] 09:38:49 Test Item Value Reference Range Interpretation Comments POC-GLUCOSE METER 139 mg/dL 70-110 H : TESTED A Ragini [facility] 6720 ([place]) (test code = [place], 1538) [address]: Anthropologist/Techni kelle ID = [id number] for SWEETIE GASPAR ANG, TUNNELED CATHETER WCIRASZHB4892-19-00 08:44:00Reason for Central Line/PICC?->> 21 days of IV infusionReason for exam:->needs antibiotics > 10 days, ESRD, Nephrology does not approve PICC or midline. [facility] 1955 Sex: FFINAL REPORT [...] dose reported as (Ka,r): 6.1mGy Signed: Krzysztof Heredia MDReport Verified Date/Time: 06/26/2021 08:44:45 Reading Location: [place] [address] Angio Body Reading Room RAD, CHEST, 1 VIEW, NON [id number] 08:08:00Reason for exam:->post-opShould this be performed at the bedside?->Yes [facility] : 1955 Sex: FFINAL REPORT [...] Cain Verified Date/Time: 06/26/2021 08:08:37 Reading Location: [facility] Radiology Reading Room Prepare Leuko-Red [id number] 06:01:00 Test Item Value Reference Range Interpretation Comments CROSSMATCH (test code = 2264) COMPATIBLE Unit ABO (test code = O Pos [id number]) UNIT NUMBER (test code = [id number] 934-0) Status (test code = 8614617) ISSUED Blood Bank Product (test code RED BLOOD CELLS = 2263) PRODUCT CODE (test code = X1209N71 933-2) [facility] California[facility] Leuko-Red [id number] 06:01:00 Test Item Value Reference Range Interpretation Comments CROSSMATCH (test code = 2264) COMPATIBLE Unit ABO (test code = O Pos 9908863) UNIT NUMBER (test code = [id number] 934-0) Status (test code = 8985109) ISSUED Blood Bank Product (test code RED BLOOD CELLS = 2263) PRODUCT CODE (test code = U8298Q52 933-2) [facility] CaliforniaBasic Metabolic [id number] 05:17:06 Test Item Value Reference Range Interpretation Comments Sodium (test code = 139 meq/L 028-535 0240-2) Potassium (test code = 3.7 meq/L 3.5-5.1 2823-3) Chloride (test code = 104 meq/L 98-107 2075-0) CO2 (test code = 23 meq/L 22-29 2028-9) BUN (test code = 36 mg/dL 7-21 H 3094-0) Creatinine (test code 5.14 mg/dL 0.57-1.25 H = 2160-0) Glucose (test code = 170 mg/dL 70-105 H 2345-7) Calcium (test code = 8.2 mg/dL 8.4-10.2 L 50403-4) EGFR (test code = 8 mL/min/1.73 [place] [address]-7) NOT ACCURATE CREATININE CLEARANCE IN PREDICTING GLOMERULAR FILTRATION RATE . ESTIMATED GFR I S NOT APPLICABLE FOR DIALYSIS PATIENTS. BRANDI (test code = BRANDI) Anthropologist ID - RAKAN W Lab Interpretation Abnormal (test code = 29087-1) [facility] Metabolic [id number] 05:17:06 Test Item Value Reference Range Interpretation Comments Sodium (test code = 139 meq/L 320-013 5253-2) Potassium (test code = 3.7 meq/L 3.5-5.1 2823-3) Chloride (test code = 104 meq/L 98-107 2075-0) CO2 (test code = 23 meq/L 22-29 8-9) BUN (test code = 36 mg/dL 7-21 H 3094-0) Creatinine (test code 5.14 mg/dL 0.57-1.25 H = 2160-0) Glucose (test code = 170 mg/dL 70-105 H 2345-7) Calcium (test code = 8.2 mg/dL 8.4-10.2 L 10536-3) EGFR (test code = 8 mL/min/1.[place] [address]-4) NOT ACCURATE CREATININE CLEARANCE IN PREDICTING GLOMERULAR FILTRATION RATE . ESTIMATED GFR I S NOT APPLICABLE FOR DIALYSIS PATIENTS. BRANDI (test code = BRANDI) Anthropologist ID - RAKAN W Lab Interpretation Abnormal (test code = 88639-6) [facility] METABOLIC [id number] 05:17:06 Test Item Value Reference Range Interpretation [...] S NOT APPLICABLE FOR DIALYSIS PATIEN TS. Anthropologist ID - RAKAN OTimlzhdinz7598-72-01 05:00:22 Test Item Value Reference Range Interpretation Comments Phosphorus (test code = 3.7 mg/dL 2.3-4.7 2777-1) BRANDI (test code = BRANDI) Anthropologist ID - RAKAN W Lab Interpretation (test Normal code = 32011-8) [facility] California[facility]osphorus2022-03-25 05:00:22 Test Item Value Reference Range Interpretation Comments Phosphorus (test code = 3.7 mg/dL 2.3-4.7 2777-1) BRANDI (test code = BRANDI) Anthropologist ID - RAKAN W Lab Interpretation (test Normal code = 84953-9) [facility] CaliforniaPHOSPHORUS2022-03-25 05:00:22 Test Item Value Reference Range Interpretation Comments PHOSPHORUS (BEAKER) (test code = 3.7 mg/dL 2.3-4.7 604) Anthropologist ID - RAKAN [id number] 05:00:21 Test Item Value Reference Range Interpretation Comments Magnesium (test code = 2.2 mg/dL 1.6-2.6 65437-9) BRANDI (test code = BRANDI) Anthropologist ID Bassam BLEDSOE W Lab Interpretation (test Normal code = 07123-5) [facility] CaliforniaMagnesium2022-03-25 05:00:21 Test Item Value Reference Range Interpretation Comments Magnesium (test code = 2.2 mg/dL 1.6-2.6 80641-0) BRANDI (test code = BRANDI) Anthropologist ID - RAKAN W Lab Interpretation (test Normal code = 05226-7) [facility] CaliforniaMAGNESIUM2022-03-25 05:00:21 Test Item Value Reference Range Interpretation Comments MAGNESIUM (BEAKER) (test code = 2.2 mg/dL 1.6-2.6 627) Anthropologist ID Bassam BLEDSOE [id number] 04:21:04 Test Item Value Reference Range Interpretation Comments PTT (test code = 86944-5) 35.7 See_Comment [ Automated message] The system [employer] generated this result transmitted ref erence range: 22.5 - 3 6.0 seconds. The re ference range was not u sed to interpret this result as normal/abnor mal. Lab Interpretation (test Normal code = 93961-4) [facility] CaliforniaaPTT2022-03-25 04:21:04 Test Item Value Reference Range Interpretation Comments PTT (test code = 57207-8) 35.7 See_Comment [ Automated message] The system [employer] generated this result transmitted ref erence range: 22.5 - 3 6.0 seconds. The re ference range was not u sed to interpret this result as normal/abnor mal. Lab Interpretation (test Normal code = 73598-2) [facility] CaliforniaAPTT2022-03-25 04:21:04 Test Item Value Reference Range Interpretation Comments PARTIAL THROMBOPLASTIN TIME 35.7 seconds 22.5-36.0 (BEAKER) (test code = 760) Prothrombin time/[id number] 04:20:24 Test Item Value Reference Interpretation Comments [...] valves. Lab Interpretation Normal (test code = 28909-0) [facility] CaliforniaProthrombin time/[id number] 04:20:24 Test Item Value Reference Interpretation Comments [...] valves. Lab Interpretation Normal (test code = 77204-5) [facility] CaliforniaPROTHROMBIN TIME/[id number] 04:20:24 Test Item Value Reference Range Interpretation Comments PROTIME (BEAKER) 14.0 seconds 11.9-14.2 (test code = 759) INR (BEAKER) (test 1.10 See_Comment [Automat ed message] code = 370) The system [employer] generated this result transmitted ref erence range: [...] 4.0 See_Comment [A utomated message] The system [employer] generated this result transmitted ref erence range: 3.5 - 10 .5 K/L. The refe rence range was not u sed to interpret this result as normal/abnor mal. RBC (test code = 789-8) 2.54 See_Comment L [Au tomated message] The system [employer] generated this result transmitted ref erence range: 3.93 - 5 .22 M/L. The refe rence range was not u sed to interpret this result as normal/abnor mal. MCHC (test code = 786-4) 31.2 See_Comment L [A utomated message] The system [employer] generated this result transmitted ref erence range: [...] L [Aut omated message] 777-3) The system [employer] generated this result transmitted ref erence range: 150 - 45 0 K/CU MM. The referen ce range was not u sed to interpret this result as normal/abnor mal. MPV (test code = 10.7 fL 9.4-12.3 55569-1) nRBC (test code = 413) 0 See_Comment [Aut omated message] The system [employer] generated this result transmitted ref erence range: 0 - 0 /1 00 WBC. The refere nce range was not u sed to interpret this result as normal/abnor mal. Lab Interpretation (test Abnormal code = 05735-6) [facility] (Hemogram only)2021-06-26 04:04:58 Test Item Value Reference Range Interpretation Comments WBC (test code = 6690-2) 4.0 See_Comment [A utomated message] The system [employer] generated this result transmitted ref erence range: 3.5 - 10 .5 K/L. The refe rence range was not u sed to interpret this result as normal/abnor mal. RBC (test code = 789-8) 2.54 See_Comment L [Au tomated message] The system [employer] generated this result transmitted ref erence range: 3.93 - 5 .22 M/L. The refe rence range was not u sed to interpret this result as normal/abnor mal. MCHC (test code = 786-4) 31.2 See_Comment L [A utomated message] The system [employer] generated this result transmitted ref erence range: [...] L [Aut omated message] 777-3) The system [employer] generated this result transmitted ref erence range: 150 - 45 0 K/CU MM. The referen ce range was not u sed to interpret this result as normal/abnor mal. MPV (test code = 10.7 fL 9.4-12.3 41937-3) nRBC (test code = 413) 0 See_Comment [Aut omated message] The system [employer] generated this result transmitted ref erence range: 0 - 0 /1 00 WBC. The refere nce range was not u sed to interpret this result as normal/abnor mal. Lab Interpretation (test Abnormal code = 86782-7) [facility] (HEMOGRAM ONLY)2021-06-26 04:04:58 Test Item Value [...] WBC 0-0 (test code = 413) POC-Glucose [id number] 21:57:30 Test Item Value Reference Range Interpretation Comments POC-Glucose Meter (test 204 mg/dL 70-110 H : TE STED AT [facility] code = 1538) [address] [facility], 770 30: Anthropologist/Techni kelle ID = [id number] for Rodríguez Cancino Lab Interpretation (test Abnormal code = 19133-6) [facility] CaliforniaPOCT-GLUCOSE [id number] 21:57:30 Test Item Value Reference Range Interpretation Comments POC-GLUCOSE METER 204 mg/dL 70-110 H : TESTED A T [facility] 6720 ([facility]) (test code = [facility], 1538) [address]: Anthropologist/Techni kelle ID = [id number] for Ad Rodríguez warner Type and screen, automated ([facility] Lab)2021-06-25 19:44:00 Test Item Value Reference Range Interpretation Comments ABO/RH AUTOMATED (BEAKER) (test O POSITIVE code = 2260) Ab Scrn (test code = 890-4) NEGATIVE [facility] CaliforniaType and screen, automated ([facility] Lab)2021-06-25 19:44:00 Test Item Value Reference Range Interpretation Comments ABO/RH AUTOMATED (BEAKER) (test O POSITIVE code = 2260) Ab Scrn (test code = 890-4) NEGATIVE [facility] CaliforniaType and screen, automated ([facility] Lab)2021-06-25 19:44:00 Test Item Value Reference Range Interpretation Comments ABO/RH AUTOMATED (BEAKER) (test O POSITIVE code = 2260) Ab Scrn (test code = 890-4) NEGATIVE [facility] CaliforniaType and screen, automated ([facility])2021-06-25 19:44:00 Test Item Value Reference Range Interpretation Comments ABO/RH AUTOMATED (BEAKER) (test O POSITIVE code = 2260) Ab Scrn (test code = 890-4) NEGATIVE [facility] CaliforniaType and screen, automated ([facility])2021-06-25 19:44:00 Test Item Value Reference Range Interpretation Comments ABO/RH AUTOMATED (BEAKER) (test O POSITIVE code = 2260) Ab Scrn (test code = 890-4) NEGATIVE [facility] CaliforniaType and screen, automated ([facility])2021-06-25 19:44:00 Test Item Value Reference Range Interpretation Comments ABO/RH AUTOMATED (BEAKER) (test O POSITIVE code = 2260) Ab Scrn (test code = 890-4) NEGATIVE [facility] CaliforniaType and screen, automated ([facility])2021-06-25 19:44:00 Test Item Value Reference Range Interpretation Comments ABO/RH AUTOMATED (BEAKER) (test O POSITIVE code = 2260) Ab Scrn (test code = 890-4) NEGATIVE [facility] CaliforniaType and screen, automated ([facility])2021-06-25 19:44:00 Test Item Value Reference Range Interpretation Comments ABO/RH AUTOMATED (BEAKER) (test O POSITIVE code = 2260) Ab Scrn (test code = 890-4) NEGATIVE [facility] CaliforniaType and screen, automated ([facility])2021-06-25 19:44:00 Test Item Value Reference Range Interpretation Comments ABO/RH AUTOMATED (BEAKER) (test O POSITIVE code = 2260) Ab Scrn (test code = 890-4) NEGATIVE [facility] CaliforniaType and screen, automated ([facility])2021-06-25 19:44:00 Test Item Value Reference Range Interpretation Comments ABO/RH AUTOMATED (BEAKER) (test O POSITIVE code = 2260) Ab Scrn (test code = 890-4) NEGATIVE [facility] CaliforniaType and screen, automated ([facility])2021-06-25 19:44:00 Test Item Value Reference Range Interpretation Comments ABO/RH AUTOMATED (BEAKER) (test O POSITIVE code = 2260) Ab Scrn (test code = 890-4) NEGATIVE [facility] CaliforniaType and screen, automated ([facility])2021-06-25 19:44:00 Test Item Value Reference Range Interpretation Comments ABO/RH AUTOMATED (BEAKER) (test O POSITIVE code = 2260) Ab Scrn (test code = 890-4) NEGATIVE [facility] CaliforniaPOCT-GLUCOSE [id number] 11:31:12 Test Item Value Reference Range Interpretation Comments POC-GLUCOSE METER 130 mg/dL 70-110 H : TESTED A T [facility] 6720 (BEAKER) (test code = [place], 1538) [address]: Anthropologist/Techni kelle ID = [id number] for PH KATHI (V), INES RAD, CHEST, 1 VIEW, NON [id number] 09:04:00Reason for exam:->post-opShould this be performed at the bedside?->Yes [facility] 1955 Sex: FFINAL REPORT Chest AP portable Comparison exam: 06/24/2021 History provided: Postop evaluation Heart size magnified by projection. Lungs grossly free of acute disease and vascularity normal. Signed: Wero Alvarez Verified Date/Time: 06/25/2021 09:04:07 [facility] [place] [address] BASIC METABOLIC [id number] 03:58:40 Test Item Value Reference Range Interpretation [...] S NOT APPLICABLE FOR DIALYSIS PATIEN TS. Anthropologist ID - [id number] 03:40:57 Test Item Value Reference Range Interpretation Comments PARTIAL THROMBOPLASTIN TIME 46.7 seconds 22.5-36.0 H (BEAKER) (test code = 760) PROTHROMBIN TIME/[id number] 03:39:54 Test Item Value Reference Range Interpretation Comments PROTIME (BEAKER) 13.6 seconds 11.9-14.2 (test code = 759) INR (BEAKER) (test 1.05 See_Comment [Automat ed message] code = 370) The system [employer] generated this result transmitted ref erence range: <=5.90. The reference range was not used to int erpret this result as normal/abnormal . RECOMMENDED COUMADIN/WARFARIN INR THERAPY RANGESSTANDARD DOSE: 2.0 - 3.0 Includes: PROPHYLAXIS for venous thrombosis, systemic embolization; TREATMENT for venous thrombosis and/or pulmonary embolus.HIGH RISK: Target INR is 2.5-3.5 for patients with mechanical heart valves.[id number] 03:34:10 Test Item Value Reference Range Interpretation Comments PHOSPHORUS (BEAKER) (test code = 3.8 mg/dL 2.3-4.7 604) Anthropologist ID - [id number] 03:34:09 Test Item Value Reference Range Interpretation Comments MAGNESIUM (BEAKER) (test code = 2.3 mg/dL 1.6-2.6 627) Anthropologist ID - BSCBC (HEMOGRAM ONLY)2021-06-25 03:11:29 Test [...] WBC 0-0 (test code = 413) POCT-GLUCOSE [id number] 22:14:10 Test Item Value Reference Range Interpretation Comments POC-GLUCOSE METER 185 mg/dL 70-110 H : TESTED A T [facility] 6720 (BEAKER) (test code = [place], 1538) [address]: Anthropologist/Techni kelle ID = [id number] for En Sheryl cordero RAD, ABDOMEN/KUB, 1 VIEW [id number] 19:49:00Reason for exam:->concern for ileusShould this be performed at the bedside?->Yes [facility] 1955 Sex: FFINAL REPORT Abdomen dated 06/24/2021 Comment:Abdomen was examined in the supine and erect position. There is paucity of air in the small and large bowel. No mass, pathological calcification, or free air is present. Impression: Nonspecific gas pattern. Signed: Andrew Palmer MDRwade Verified Date/Time: 06/24/2021 19:49:12 CT, CTA CORONARY, W/ YOEL [id number] 16:36:00 [facility] : 1955 Sex: FAddendum BeginsREPORT STATUS:A Impression: Mildly nodular appearance of the liver margins. Please correlate with underlying liver function tests to exclude chronic liver disease. No abnormally enhancing lesions in the liver parenchyma.Low-density lesion in the right lobe of the thyroid gland. 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 Signed: Lise Andrade MDReport Verified Date/Time: 06/24/2021 16:36:13 Reading Location: [address] Radiology Reading RoomAddendum EndsFINAL REPORT CT [...] (< 1mm) were obtained. Please refer to [facility] regarding the medication administered for this [...] erformed. Coronary calcification was analyzed using the [employer] system software. These are the results of the calcium score evaluation (threshold = 130 HU): LM: = 0 LAD: = 993 LCX: = 345 RCA: = 33 Agatston: = 1371 and bypass Reference ranges for calcium scores are provided as follows(Hanson Clin Proc 1999; 74: 243-252): 0-10: minimal [...] from the right sinus of Valsalva. Eccentric nonobstructive calcification is identified in [...] to the RCA is identified. Regarding the [place] coronary arteries, diffuse calcification identified the proximal LCx making accurate as sessment limited. 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 NON-VASCULAR: A 1.2 cm hypodensity is identified in the right thyroid lobe at image 7. An addendum will be dictated thereafter by Development Technical Lead Radiologist if dedicated thyroid ultrasound scan is required. The chest wall and mediastinum appears unremarkable. Patient is post median sternotomy. No significant adenopathy is identified in the mediastinum. In the lung windows, no endobronchial lesion is seen. Moderate right pleural effusion is identified with associated atelectatic changes present. Trivial pericardial effusion identified inthe left base. The pulmonary vascular appears to be somewhat prominent suggesting a degree of cardiac congestion. Correlate with clinical examination. A juxtapleural nodule is identified, at image 24, measures 6 to 7 mm in diameter. Limited images of the upper abdomen reveals no acute abnormalities. It is uncertain if the liver edge could be mildly serrated. An addendum will be dictated thereafter. In the AP orientation, the spleen measures at [...] High-Risk Patient: Optional CT at 12 months Nodule Size 6-8 mm Low-Risk Patient: CT at 3-[address] at 18-24 monthsNoduleSize 6-8 mm High-Risk Patient: CT at 3-6 months then at 18-24 months Nodule Size (mm) >8 Low-Risk Patient: CT at 3-6 months, then consider CT at 18-24 monthsNodule Size (mm) >8 High-Risk Patient:CT at 3-6 months, then at 18-24 months 4. Normal thoracic aorta. Scattered calcification is seen. Noectasia or aneurysmal dilation is identified. The left subclavian artery is widely patent. 5. Other f indings as described above. 6. An addendum will be dictated by the Development Technical Lead Radiologist regarding the nonvascular findings. THE REPORT WILL ONLY BE CONSIDERED COMPLETE AFTER THE ADDENDUM HAS BEEN DICTATED. Signed: Dung Fletcher MDRwindham [facility] Verified Date/Time: 06/23/2021 08:29:48 POCT-GLUCOSE [id number] 16:19:22 Test Item Value Reference Range Interpretation Comments POC-GLUCOSE METER 108 mg/dL 70-110 : TESTED A T [facility] 6720 (BEAKER) (test code = [place], 1538) [address]: Anthropologist/Techni kelle ID = [id number] for Aditya brewer (contract), Y[employer] [id number] 15:29:08 Test Item Value Reference Range Interpretation Comments Case Report (test code Surgical Pathology = 104) Report Case: [id number] Authorizing Provider: Logan Russo MD Collected: 06/18/2021 11:41 AM Ordering Location: [facility] Received: 06/19/2021 03:44 PM PERIOPERATIVE SERVICES Pathologist: Tom Paige MD Specimen: Mass, MITRAL VALVE MASS- for MICROBIOLOGY then pls send to Pathology DIAGNOSIS (test code = [id number] 3220) uZzEwMzNcZnRuYmpcdWMxIH tccnRmMVxlcGljOTYwMVxhb eDmGADnjLSsR1EfapciEYdx LJ4uXZ4rzZbkbUPajTGsGXC nQjUtd6ehb525mWUym1bvEB EAhkqeoJi8cFqtJ37va0J0B knhP79voKXjPKM1DBGfAOQy bDKgQCSbABL6LQIeoMQzE2i vNZDoJY6dgkvvEQypSYygBK YxhNJ4ZRMbaMInO4EmQFCfN QjqPCLjrwa9AdMjYl1fqDYt eTcyMFxwYXJkXHBsYWluXGZ gMtMlWB3tFOTAQkJgKM6UMM JBTCBWQUxWRSwgREVCUklER B6IJwEyEU1ZJREXUGBUCowr cGFyIEZJQlJJTiwgQUNVVEU oCT0QOVYKTUKLE8RHIDAUG9 HDD7MBRKPDMvCeD3BAH3gIP DZTFQjQSm7iaETePXKIMIOB HSqnM5TTTD2SLCUXBiPOYdQ FO8CNC4NUTY4QP5TJIZVZAb OBFX5LOS9QUWXLHOIYCzSFJ NONZlWVG6rFA9cuFRwkIQYo V12YYxIBGMMWC33cU1lTHFM JUFWIJ3GYY8xCH6aVKTjwV6 XDECfVIbMMUuMDNBFXOC0CR mQDLO5oWNEiyx52OZQ2OxLp k4M0FHG7WNIpSERaj4eaNEC mbGFuZzEwMzNcZnRuYmpcdW JqCTMwMtVrr2rlv900fOAnv 5gzUOOsFbN6wJLgBEOmdMUx R972INGeUVvgz5tue6SvSWS frDIzo6I1PMVVppusxJl6zO ylG61fe3R4JbelC3buFXCsU VZwN3AmLA3dTLFpQyt0IYY4 GGS4YCSvKJHiL6WiIX7pBUC uhGTyWUx3t3hseJznLAQqJG L8h1khFEtfetIxRE3icv5sc Uj2x8alxkJsTAIwRBQcfGCV TYUkR5BndUceRd8jwLo3cKb wQrfxTCD7Rhx1ZM8knq93pc k8zOduTGGylddzDeO3BIqnC ULdufgxKZb4JQlqDKEhdQE8 LKZvnFYhG2CgOCQgLZ7ocnr 9KXK0OKiwXDHoKnF0ZBGvkO EzCGYraJyaFWpjw434ZFU9Y hNfRR4oV7Got9Y8qB4mgNGb TTCxeHMnFwUcAVVzio6inCB zTIgot1DhRCJ2eyJ9yMOeqO JcDXFxIaG9OMahVY9ymo12R VRtTDM4jk6zmZHpiEhscaDi tIQgGOotA8CmFUIxt907JVY cR8TuYZKzy7E4enOjSxYzPV KhgHQ0qjB7VWIiLH6flbpyj 3zeHHogBLvsQJRbhwL2ntG2 MEBijTGdR6VouE5kAMEeQK8 axvqhs3pjOBI8MXozCXLjTF D8VgRfBIVwa1Omytk0YdNji 1OnnFHzNDozO57vv654NVMh wwGaU7gqkEGepcgnrUSmxiw vEPrshkR1NWZgJIcbiwleSV NySYouY1tqZoZePGBpmEjnP Lowi3IdQHInGOOqGqGdvQJf ZNLqVms0LJOtvBAmFBViRcO gZ5ommmgvVpHZVGEks1tpO1 ureLEWvNUbD0SvXNcngcEoX OtiTWecSbNgMNVgOO17FDZ5 BCCtng56 CPT Code(s) (test code g2ujkYZhBZHkrIP1XlCmIDA = 3357) gj4apc8WynXPrkCXvAFyqcP ZjlhZqpj22bLM4lP51NH9iP PBlDrX1RWHfebK7Czd4IIDb MPAhpBWoD513m4ggx4posaQ whCE1jEoeWGDksftxFtV7YJ ltKIIqbljlMMp6WYqjTDSci OO2CTUeiEVfU1TgUYByBN5u ivr2COE1DRxvSNLeSrF2DAU kkTRwFDKhvKyhHAcgg807ES K7ZgXcYAShqoOjsBnybT1gV bYrRRU9EIHgPZflMRqeSSUK W0dzLMP0 CLINICAL HISTORY (test c9mpxTAjWEGrfZB3BtPdPDI code = 3356) wq2uee7SqmARdwTEzCHkjoN JsxuVvkx95zRY3nP41AG7qE RRyOrX6HFTmcrJ6Bgs2SKNo XHDbuAKaW282c3sgv9ljjgV liSW1rWuaSQVcewcyAtL5EI dtLKRiwevoTQc0VMtvIOUaq HA5LLKifGLaO2VxACUrUY4v vip3EAL5FLtaALYvKqC6TZJ frHOvMYHgeCyxJApjb516FU E0WxQmIRDuzeCacYzyxH2fH yBrRDGSttAjN9IyVSa9wURq cGFyfQ== SPECIMEN SOURCE (test e1tpcZHyJDZdsJX8NrGiHPT code = 3377) pl7rfp7VxjRLanOZuGQbhyN GqcqFedl32hGC1qC97KR2wR DIpQgZ9TQObanN7Yxi1FSLb QHXkmBFuD648x8lnp4kecoT nsHA1gPyrNEThpulmImF7BF szBDKdvkqlFAr9FVhsKVOgn HN8IUKdoPMwE8CkHFEnMZ3s nxs9DZG2KIpaESDxJkE3RUV saTCcEIXbmDbhMZxlv833WI D3ScEsHPCsbnLajSntyK7xT nMyMCBNaXRyYWwgdmFsdmVc cGFyfQ== GROSS DESCRIPTION a6efrZOzJHOcaVAfKmRvPDG (test code = 3366) uKOWsd8xoNVZwlLKdEsWoAc NcZnRuYmpcdWMxXGRlZmYwe 8syq227iSJry5nlXEVxYwG0 sBVyZXFwvSGnX057OFGxSUk kp7qdx4VvMHEjhUQym4F5RH YOmellfQp1zLtgU37ka6W0X gbmD3teUTMbSYWcD4SeTT3k ZDCzKxc8EOF8AEA9PASvMFD hL5QoPF4jIQSzxWRsYOf6v9 onxSsqCMFeLDK6q3olYXmzr nHyVO6mxs9nxVy2e4ddfrQq MCBwGYZevNRSHTNrN3KflHb vXf2kpMh2jGhfAnijWMT7Zv d9YQ6ocy18czx9gJmyEGPnh tzjZyG3JWekBSToqnepLVp7 MFxtYXJnbDcyMFxtYXJncjc yMFxtYXJndDcyMFxtYXJnYj lyBUzhANUzCUF3POvyr954T GE0WUhha4hcl6hmlIGsLga7 EXEjDyIeXsayAYczl4Gzu8i lIHLjnj6dZCE5lVDjoJpvw6 B7wQRsGQIeyFTzmeOfXUJnZ hJ0HHwrIA0jbi95OKIfIPV7 hp4apYFgqLfunbOhqCOsTWg fX3QkXHQay184WUIbX0NpEQ Zar0K4pwQxBcJcSMMsdDR0g aK8GSStOXj6rVMcqrY0hkHe tIMtH0mvxJ35QiTidUPjT4C vhE27NjSyjZNdG0UfcH59Vc TbyXVtV0QakY51XrPubBJtW PSdbWUuAq8ssUZbqPAki0Bu oFHtKZipL95eb862LSDswvL eT6umcWXwowomzKFmeepiKS vdkqL5JEFsEKOdYPktCONlB GZzMjBcbGFuZzEwMzNcaGlj jDyrPUitVzBoGXYbURukG5t cZjBcZnMyMCBBLiAgUmVjZW d2MIMbhM5oLd2fhZVzvN5pq FZgRSunXBG8vENgWTTxXIPx TFDqVY19O2AmlC2ny6JmKNX ba38bGV8rCXXfiUSlPGraol FsdmUgbWFzcyIgaXMgYSAxL jCwJ84hsL7esRIzF4TfISP5 IDAuMyBjbSBpbiBkaWFtZXR jxoH1FT0ipYgfffY8zKLcxL RcWWrikUUuDAumSFC4Ap9ie NNwNSKwhvC2k1TaOLseQIEg x9CatNYdARLrUgjkCAQwuRZ bFRLpjyTqbZjpcO0wReWiLx MyNFxwbGFpblxmMVxmczIwX MyvckylZTUwBOmtA3gpRqKv AODycFtqTEcsu4XqERTtWSM dEbWoVDJuMZBro8syGU37BH xwbGFpblxmMFxmczIwXGxhb jwbSMEoRNvpW7lpUpQhVOUh nOfxNPalp3GyWYYcBYHxDhL ccGFyfQ== MICROSCOPIC k0bujTSyATFhwXI0ElVeCDF DESCRIPTION (test code cp2dqm7KhsAOexLZoVVtftL = 3371) LghsAhxm30vWW0xG76YK8gA DUhNrT4TBWpnsQ5Pvo3XWPh GUCvnKDfX882m7kbj9fnonX seZI9aXryMGOoffvfBoT0AK veHCFknqsvSTj4MVykEGSfg PC3MFBucOLcZ8HbMMQmJB0c muo8LWY1WMphPPAtRvR4OVD uiFXbDPRiyTowAUvzt867DH H8CfJwMYRvomJpnEnsuH4dH tIiQVRAWCZdw3HtTJWyDPAs cn0= SPECIAL STUDIES (test b2zksBRmDPQlbIC9EpCmGNP code = 3376) we1mtm4IswBYavJVbHWyvaC ZsdzPdqx32rHC7pZ19LG4cV TKuQtN7WWRienH5Nqb9PCPb GQNvlWTeP445WNCoZLWwmMt bxja0xK65MRNvhC1rsHWeKA xlsdDeFGoidfNmumYyRal9Y HI9eGfqYRIgmdluNtJ9ZYwt AXWzdwusVQl0YVwhTJYpxPS 8MQKldBDcF8MrGKMtRG6gsm m2LRS0IZkeSFGmVyX2ATKtz RCwKJRdiMliNTcjl827ZFI8 AeWwASNilsAyvNzjeQ9zAdB cZnMyMlxjZjEgVGhlIGludG GgeEYbaYW0mQ6lRS7nHEXwi VSsG2PuCPIzpeHyoCKnVEH9 oQGbiFOwSJ6oVCikuXUkg6n cz0RvD7cxzTkoyFU9XG8zCP HkMKQyBXycp6KdwO9pIbxfU YGcY2WtGKQGU9OOZCKuKDGQ Yi2JUaRLFmDsTmFBIz5hTFg NUywgQUZCXHBhclxwYXJkXG VeZPYJx123qc2sTPYxzUNor aPKhTWwwP9cDLfoVZlnKDab eQMkOMdom2lpFLXfq0q3qUI gBYQmamKbk4soSHarzhVsUD RddTUwmTGwZYFhx34mABwfw AlsaQzyPCSoh7RupZsxq1Qm JdFlIWytw2MqC91svGGgiEV fuPudRNNdsbCwUVCnr14rh7 iwEDPnInV4iJBjaRX0sVGmu XUpd9ZicUxgEXVms0nxJATx nj7jqmorbSIdv2RtdY3zmeh pDZpslJPpcfIpAFYbu0x1bZ LwJTWxPIUaNKcgkCh1CCXti 113xf6ykdO3pNOfUTJ4NLuk YWJsZSBhcmUgZXZhbHVhdGV tLPNhlqDfCACarwSVoM83gb 1zzWW7x1DbOF4om9DbiAP0D WNobmljYWwgdGVzdGluZyB3 MOSutNBrHb4owCZnGEM2BCP hhZnnwjKZqG0zFEGdBAq6YU EuMiRuGrrpoxTBEXCkN1IwR VKzusZnzcszGPU0gX9vq7z8 SRclEz1yJMBgewiue2ixzhL hwLIjn8RlCUAhqqGtk7OlAJ RfojHntDEsARBdkaDwvi6kw eMrZNMrSXDpC4TkmdwqbFkf mfG0ZOTuHQVlgDNtfXsbKCO yLPj4TSbkepGwy1HuCqTbwc QsoOUjekGsOD1nTRXefVOoq lEeQCD3JFLkXBHWQaIaGTCj h8IsUC9bRMDftKvsVPJgwR1 yz9EeMPVkx73sBYHhIVDAZQ EgaGFzIGRldGVybWluZWQgd WsmfOGycTHuQPZdUEQzCR5o JRNknlMeqWQfs1AfsZGkciO rk8FckwXmJHVmLEO1KmBOzK QkjNZigRLlsoE0q5EhGUWdz bTjiKyrpGIspTXruFRab4Ma uw5kLTXrn3ajoVdiGO3rrNY iZSByZWdhcmRlZCBhcyBpbn Msf9RtK0R1qQ3iCYmsw8ZfP z5yQCDdc1JvisLvZsHSeNyc JTplHz0hZPRonjnwbYFcE6U ydGlmaWVkIHVuZGVyIHRoZS VXrMaasMEjtEBZETSohlY0r 9G9QCssjNTxmtQnLO46QFZf ML5jmAMbnGOmh1FgTQf1QNG yW4kMCQ58GHnlYRYwyODjzS vzfWKpNPDzDOYajeYkdt3vf DfigQDsf40exQW6kJZ4TXXc wY3qN4SmORhwOc5pFCHwvbp biKLerMpjSi0niZRfuE== Gross assessment was [facility] performed at [facility], code = 2777) Department of Pathology, [address] [place] [id number], Technical component [facility] was performed at ([facility], code = 2778) Department of Pathology, [address] [place] [address] [id number], Professional component [facility] was performed at ([facility], code = 2779) Department of Pathology, [address] [place] [address], [facility] [id number] 15:29:08 Test Item Value Reference Range Interpretation Comments Case Report (test code Surgical Pathology = 104) Report Case: [id number] Authorizing Provider: Logan Russo MD Collected: 06/18/2021 11:41 AM Ordering Location: [facility] Received: 06/19/2021 03:44 PM PERIOPERATIVE SERVICES Pathologist: Tom Paige MD Specimen: Mass, MITRAL VALVE MASS- for MICROBIOLOGY then pls send to Pathology DIAGNOSIS (test code = [id number] 3220) uZzEwMzNcZnRuYmpcdWMxIH tccnRmMVxlcGljOTYwMVxhb dYkSHGaqBTeM6HauylqJRbs WB4cVZ2otJdiiIQttWHiZII lXfQll3btq001uLLlh2uzTG MQymevlLt6pKwhY88jo3I6C anmY22osKZqECH5ZMJlTULk aLOrTAObHTU8REOufIEuO0u fXZBiHA4ncpqfDZgsFYrfWF DxkEE4KRElbIWcG1YrOSEkQ ZsiWEKsdcv7XlCiHw4zbTIm eTcyMFxwYXJkXHBsYWluXGZ fDjDeET3kQCSTXxBtBM2IHR JBTCBWQUxWRSwgREVCUklER D2POpAkCG8HDTUFRGIQUglo cGFyIEZJQlJJTiwgQUNVVEU iXA1KXDSIHXVCM2EWNZRIK5 ZNQ3MTEUEUPdGtS7EQQ1zYB RUEJEvHFh3uuWXxBEVFBKYG RLhpA7DCJA9RSGEHIcPRSsL CS4MON0CDYK5CS1XVNUWZKy GPJW7TWB5NXVGJUZIVZlHVQ CSJCkFET8oUF5myKTbqNWDb X65UMmNRKFDRS25yM4oPKCC UQTZCN8OPA2iVI7mPHBjqT7 VUAQlMFyECGbFIOQBFGC8LO sKIUN0oTSWhgd36TGC6StZh n2Y4KDT1WUJkZPUod1olBNK mbGFuZzEwMzNcZnRuYmpcdW JyDMAlIeYuk3uvb761rBWuz 1mvJBTgSsQ7gFAdDOQcjRZm G615YGSjSGtdy0gmd8LnLYD zoZOfg5J5EZRUebtqxBe7zT ujL56uj9R4VibbV6zdJKMyV CBwZ3NbGZ6rLMNoCjl1SHP6 VUC5FSOoZBQaQ0DjJF1fPOG wdILhVTx5r5rixWddOGWrAW Y1g8dcDUlcqgSlQL3inc8kf Bn9d8pwvmEjJDAwOHEtyEEI WBCdI6IssKfsCo4dmCs4rFu oAfehLKJ6Qcy5NM7yvn13ve j4gOsvGLStmypwLfM1PLfjJ EZlzshpDSa7MEgoHWQtcYJ2 CMMmwMOcN1BiEFHuBR2xtyy 0PJI6FVpySBZlZgY2UVOemB KoSJEvtRxpGSrzz934LWC8A cNxIT2eG8Giw2E2dJ6dwKRt AFZvdMXvJoNqUMKvgg2hhOS hINtuf5DzOCR2tlI4cDRvqO GsLEPwGtZ1HAsdZF0hhe38D EUbHRA2qv7uvAVgxEsdoiPz cOHjPNdbY1HkCCPwb162EQJ vN9SpIDSpy8L2blDlApVnYB VnfEY2iyL1VRAyOD1artcpo 8ppYOaePDeaVWRtuoX9swB3 MTQodPTrE9SjiL5sHIUlZP5 ssdhmw1uyVGN3OKmmUBFyAF J2FbIoOBAgh5Rhowc1MbWys 9CykHUrYNnsM01uf714SFNz pvJxW0iobTSzkrjqkUEvhpa tBPrjpcL9CNEnWCfqyoxtAE TyKAaqC9etFvIpNAYeoWkzS Ttzu1MxJFBuRHTwVcDjfIPv CMWnVff3RUDwgVZdPYSlXpW bE9kduqdwWwYJRIQpq7otV7 txjRWBuDUkJ5WhVLgalqSwI ZzuAFttViBvTSSsFS17SII2 GWPpae33 CPT Code(s) (test code b3ekfZFwMEQouZX9WnBpOZG = 3357) td5pjt9TuwSSniXIcVXolnS EoemOgxe70hPF5rM09LK4yK FXfKbU3KAAxvqN6Fjh9ROZx KPGwiLMnW080z5ytb2bfctE ysDO7rMlmXDNwkvtqRaQ1NZ awAFFlqbqmUBg8CPolBANnm WL9FPUvrRWwA0JmRIAhKX0m gec5RYS8ESjaGXLbOtQ5UCR dnTAgELVdeFjkLPrmk681ZR V6OuUgSYZmlwFiiYgueJ0jH gJyEPN8IFMdVKlzQFmbVVET C3tkZOI8 CLINICAL HISTORY (test w6lajXKiBLXrbEN0EhVnZRS code = 3356) tu6lol7JboHSomJDwLMuzxL QcilOuzv88qAX3jQ63SR5fU LCqIoH6RYAujlF8Gvz8VSHo BTLgsMXfJ855h2wlr2wsyrK tqFA4pLseISXmaaoeSbA5OA qpHKSrmdnmUTp4HCdtUYJdy MI1OTGndISdA1WuZMZkKC2d hrs6IFD8JExaCAJtBvG3SSB lcIIoKDTbyJjhCEnoq086YF E0SwUhUKKpieBnrEqdtW6wK dOfPWSAbdBnA6CoJRr3nMRx cGFyfQ== SPECIMEN SOURCE (test m0fcgWQrWBYdmWY8QnSnTPT code = 3377) xh1nyi5VfhSWzqTVuCIspyG ItfvGafw65dEH9pN18GR2xP CGxJvB6WXEaztI9Nva5RJUj LCJsdUHaP770x4qte6zullA ddBN4eDwyULWjxfzhAuX3NS dkTSUmwqciBEe3AKxuFVGvn RW8ODGkvVZyI9VrBUQqOH0q sxi4BQH5OXdzKZLsNyU5SES oiBXsVHIttQhjDQida901BL O4MoVkNBDtgbVnwLqalL9fJ nMyMCBNaXRyYWwgdmFsdmVc cGFyfQ== GROSS DESCRIPTION c4zmmSEiBMEboCTjEiYtXKQ (test code = 3366) lDMGsq6mpILYvdZOgUkWeJd NcZnRuYmpcdWMxXGRlZmYwe 4qhn440aWPfj9kyDGBbUgQ0 pIUcSJLnpYNaX153FDVeMZl kj3fvw7ZfBFMbgCSii8C4YG MCcrgjcPi5aOmnW99vh0G0Z fhzD9ouOYBuBOPgM2MuKM6u IBEvJoz5YBU5RBW7KOMoRCT lL7BzGL9uTSShgGPvGAq5b3 qheLylRSYsJPB5v0fnBLppn fTsME0fhp0geNn5a4qxmdNs UIZkYNBgaPYFFCFuI7ObnPe xGa0saGy6lOcwOunoDNG5Se g0GX8srk79xdz9hBucCWWxm wydQrM8LXdxRBByyhowAUz6 MFxtYXJnbDcyMFxtYXJncjc yMFxtYXJndDcyMFxtYXJnYj ycAGvkNJDwBGU5CDrby515F YT5YJuuh7uve0dxcQNlKqx3 ADWiNdLcWfiqDCyuy8Eox5s kNNAxzh2mJJA6zIPzeMprv8 L5mPSoIQDcoPZklmJgDXScU rM0ABkeXE5cbu61KPIdCBQ9 yk4guVZsvFdsbkUafWNyLQb hD9EeKDOns540BUYfV4PjEF Thh6T6csJoWoUyWINmlFF2z xL6YXZyUJr0mSZkxiQ6exEi nTEwF8txaW51LzAbcZTgF5U yfZ45WuGjvMNdJ5HlsD44Ld NnuHTvI9ErqS23FsExiBChY LStnMDmOc7ypLAwgBEro4Ay iZVbICcbJ52ii475GLLkspJ wE2qyrUClkopaeILfwtxzLZ faqkS4XOElXVBmKOvkSUQvD GZzMjBcbGFuZzEwMzNcaGlj oHnxBNhdNhCrBNSdDCveG9l cZjBcZnMyMCBBLiAgUmVjZW g2RFYsnT1iZk0zuASftA7uv DGkQUsrFNP7fTJjYWMmBVIs VQMdOL19U7VlkA5pe0LyNGV sd50wCU0tPOTuzIFpSCmeni FsdmUgbWFzcyIgaXMgYSAxL xVeO10puN0ahTNfV4OcMAW1 IDAuMyBjbSBpbiBkaWFtZXR hqpJ8OO8miDjrfjN1aDXtzS BcWDltkOTvGPcqBOE5Yq2uk TFlINYuyjG5r5PiYWdhADPt a5BwkOZrSWLpDgxkZMAceGN aPMHmifLeiPbjiV9xUrOmKm MyNFxwbGFpblxmMVxmczIwX PpyboowBLXqQOufZ6nmMeDf LKHplCaaFMspp4WeAGKkHII jHeTgNIEcQZBtj0tdNT97JU xwbGFpblxmMFxmczIwXGxhb zeeSFSwDPbpN5eyJrBvBXUu cMocGRitz3YxEZWbCOIcCfS ccGFyfQ== MICROSCOPIC n1webGWgDKCzmCZ1VaChQLK DESCRIPTION (test code cj8lbv1QbcMFbtRBhXYyseU = 3371) TcqvDsqq31hGG8sT40ST5bI RPsXwH8TMHwepR7Ppk3KZLd XAPcoCNiG780m1qxv7buaqF zvCO4jKpzRGRcrhkrGbN9PT rdVQZbgeruMAt1CZckVWQlb ON6IAZrqQIpV9AjYKHjNQ7w ahc1HDH6GGspOTWhBwE5GUC pqJRlBOLriZqsYAaay046LB I2RdHmHURlwcGjuIpawP9rH hJgXUILAIPtq0NcDRJkUISp cn0= SPECIAL STUDIES (test a6zzsFWhXSYwpST5RzIjXJH code = 3376) hm9bym6SpxYTzrIUgYEdfpG DwsvTljf04zAQ8wY36CB6dN OEhEyX6WOIabzD4Fal4LVEn UKXflKFuG014SMJiTPCztRn ahni3gQ69AIAbvZ6vaXIgBG adsqVgQFainlFdesEpTet8G ED8eLhhPVWllaspViV3KTyk UIAmkzzjAXg6KHsuFHEcqBL 5ZTKeoDRiK2OnJNLvGY6twh b5LIV1RDgmJZKeLeY9ZQNfp WGoCRPkdAzdZYyay132JAG0 JfRpELBlebNghUwxwV3gUfS cZnMyMlxjZjEgVGhlIGludG YgsHMqkNM7sC9dQK3wHKZec PPoK0CiZWPdrdPoqCLcPWQ4 nSFclNZkUY9xJFlbkGBjq5t ae9JvL3pkmUrnuGC1FD2bMV OhWHZmVEafc3BynE1nMknhK BSaL5CgEXXAG8TEKCDnEDPA Md6REwTVVnOhQqYBHa3eNGc NUywgQUZCXHBhclxwYXJkXG TvEUVNx050fs7rVIAikROqw lFZqDIstT3bKVxfSRovUCox lNKtWEgfb5bqBFDns6d3tCL yEHUuqvMao0wlNVdwoeQxBX QigFPhmXDjIYQrw32rALoqr TgcuAlkVDXdh5ShkWpbg6Bx SbSlPDilm6BtX63piVGgiAC jiIlkYLOtuaDeOBDdl76fn8 upOPAvSrW7nKIvjVQ2yKUdd YRyd0OyyTfoDTWlf5wnNRTr rj7itafthOQvl5ItbA0wqsu rGNvdqZEuyhYqCUWpq3a0zP ApIXVbDAZjKEtzdDg6PFPpj 370wg0ssyI8zWUnYFJ6FFdg YWJsZSBhcmUgZXZhbHVhdGV mDJZtqtEhVOUoyfIDaW72jt 8laWE7q4KkKO2ux4JplXF6S WNobmljYWwgdGVzdGluZyB3 ZKDpbBAyQa2ckYZgUEO8SJS kkLkpefFJtV1pGZMhZEv9LM ZmVsMuVluwhgSQCBPcI9AeO GFwrqXmefmaQZJ9pF2iw7d9 SIhoYz1jXKLmiecdl2gxskR elUHbb4GnXTYrixSpn4LoKQ DlzwRzlSPkPHHlvhStsb7rd cXjIPTbVWCzL3LbasqqdHnb mfV5YVTqFSBqcTOvbPflMXJ kHHy4CVbiznHub6UcMnZquw QoaGWbjmYgNI5jAIBraUDxz xLmWQI6GLDyKMAILeRyPBMa r1XiEQ0hWGUfhHziFWSukL3 bz6HaFRDmc89oNOFkWBLIMG EgaGFzIGRldGVybWluZWQgd SksoPWcbHCrLHXeWCIiEX9q FAKyfoLjtYBrw1StoUCxstZ lb8LnowXpFHReLEX7CzXEeF UilMVcgDNbnrE7w0UpZHTga lVzdMlyuZGxaHNeyVSqm9Vu os2vPDYhz8xghHjsFO0ohRB iZSByZWdhcmRlZCBhcyBpbn Eiv3KdD7V6kX9zLIfbv7AbA n8mECTcl3KphdIkZkHFkEdz CGuqBw6rXIBekryluONvQ6K ydGlmaWVkIHVuZGVyIHRoZS DHcSjpcQZjgATIJLEtgkR7n 3P3MGhuxBEycwUxWL33KRJv GF3yxVKijTVjx6KoSSi8HWY oZ5mTFT05EXylBMOehRYqpQ gxjKRrQHTjABXvixEytp1xe NewkQAko60azKM6rXC6TXLa fZ9bN9NcIMkjXh0xBUCjpan dnCCmgUfpNu1zhVZhlT== Gross assessment was [facility] performed at ([facility], code = 2777) Department of Pathology, [address] [place] [id number], Technical component [facility] was performed at ([facility], code = 2778) Department of Pathology, [address] [place] [id number], Professional component [facility] was performed at ([facility], code = 2779) Department of Pathology, [address] [place] [id number], [facility] [id number] 15:29:08 Test Item Value Reference Range Interpretation Comments Case Report (test code Surgical Pathology = 104) Report Case: [id number] Authorizing Provider: Logan Russo MD Collected: 06/18/2021 11:41 AM Ordering Location: [facility] Received: 06/19/2021 03:44 PM PERIOPERATIVE SERVICES Pathologist: Tom Paige MD Specimen: Mass, MITRAL VALVE MASS- for MICROBIOLOGY then pls send to Pathology DIAGNOSIS (test code = [id number] 3220) uZzEwMzNcZnRuYmpcdWMxIH tccnRmMVxlcGljOTYwMVxhb qYnFZRvxQAyX0VbyqgdZZwi QS8wJA6iaEatlGUevPBnLHP bJjRhn1pbk143vHItk9tzUH ZHpgqhjAn3bOyfE72jr7K6X aorL92vnUZgSUG8GGLxDJEp jLCsIBPyZOF8DENcbDCqO9x nXSXdBU8dtylyJPebEJdqZJ TszWI9JEUngIRsH7MjGKJoZ KgsJTVhtoy9DpTpDu9ukBDj eTcyMFxwYXJkXHBsYWluXGZ hUoKgNW0fVYBSUbRcGS4ATN JBTCBWQUxWRSwgREVCUklER B9TWkHjOC2AXFMZJWRPZkqo cGFyIEZJQlJJTiwgQUNVVEU wVV4BEDIHSTCAW5OGPIGHG9 TGR2RNWBFZZbKhG5VVQ8hEG VIRWRhIYc1tpEOsHZACBBFP QZslM8ABQP3SVKZSYhJRIuM OI7BOF0XSHU6XL3QUFKJZOw WXYJ5YPR8GVEUYKXOIExKKK CUTVzFOE7zRN8heXXwxMTLs P08RVzYHRUVAN48oE5nFRDH AYJLMX0UPO3yDZ6aRDZllI3 ZDVCkSKxWKEqICHNOUVI8BF tMUGF7fVZZkgu42ZVS1MgGk c9N7UTN1HEHwRFOes0qzEXV mbGFuZzEwMzNcZnRuYmpcdW WuTXDhSdQfo3gig211yIQoh 7qmQQHwAgD7uHPzKIBmsDEj Y363CDBdGUlwd6kdk1OxYQJ ydGGfb3U2FJWEervqtTa2jF kcC00xx3Q2CzcvP1zjTIIuI JWmT0XvYJ4pIFTlYix4NUX4 WRU1BYXuRKJrO5PlHL9tJFK joXLxCSp0p7vdqOdgCNNtCE X0m0tsPWypkxAtKW1gxx6oh Tx6c0setxPhZJVcELYxrBLJ JSBaI5ComVrmJa8yaAg3xFg dZntfPYP8Gfx8JO3zfq31gl q2vCzrAEGegzitKzG3KQpnV SVamazeXNq4JUpiHFInfCB9 DYJcrPJtT9QzSDCqLF9xrni 1LRE5EKtbFAWvFzY8KQBioT MqWLDvwLjvMRvlw460XLS9U nUtLN1hZ4Fnk9G5hL4ggSIu FCVeaFSpEwChIXYmeo2ffAA hGEzmp1NxOLG9kzL7bNTkhW PhHZJzWfC5ZHukAD9ple85C EOfGSF3dp9llDQpmQdbitOx gKOnUMpmR6YoZKWrj350DWP jB7LyBQKct6T4mcZeYmMpHX MrtEG9zbW6ESZiBP2ttzmxo 8xyNGbfWRunZCIrmqC1lnZ9 PKQyhQFxD5BzqT3qIHHcPJ3 ywqqgz3ofUMS2WKqaHBBrKB J9EzEfQYUmh6Hlhgh3VbYmy 3MgaOQqIMfpO85oj326FYCd hgFhG7nksLCyhamiiKDuoyw tZPrpgyE5TUQtDLnvzsmjCM BxJYqrG9ifDqQmBUZjaFezM Jnkc6InWLZaQLHjGnQliXJg ENWuOls8TLDucNDiQASgWfV kW5xdqjcvUwKRBHDyt5ljV8 zjkUXQgMIkC8QpFGauohCuZ BggKEcxRrMzDDWuEM44DNS3 [facility]so[facility]01 CPT Code(s) (test code s4xikMUcPVOriIK0NyGrAMU = 3357) aw5gvs0WrfOKoxLCzDNqeyU VtjuOnlg54pHO3cX06VO0lG YWzObI8VSToctQ3Sop2VTPx JSIdiLYvB193o2odd9zxdfG xgMY6zNmjUTFzcxfbTvH1YU igUUYwpyjqGAl5QDpuMZLfo DG6LSSgxGZbL1SjJJAxXB9l jqg9QKE5PGybLQTsKqU7XHB yhAUwWDAyuVfoTBege300SW O1HeCnGSDtcvBcyQwinN2bP fVnBZH3ZJPgDKyiBTnkTBND X1ngWSE0 CLINICAL HISTORY (test o6jhoQSsHJXzzSM1QdAmSKB code = 3356) xy4sqx0TfsZFsbYYrRMvjvP YwmvAqjx56wQS1mO56KU0vX OScKvL1NOMcaoJ2Ffy2OSCr YNImhXYcM861b8xga3pcfhR xcHD3dAfbOIEtxakrDrT4HN feXRSewkfsEUg2VEckRAEnn DI6DYNtiRZlC9KqHELvTF9o bcm3XNE4BRmiVKMeJdF8TAU dbBNrZMZqpEqkUGasp910XA D2JlWjVDFnvqUaoMljhI8sJ gVnWNBXvwWzY5PdIGv2oBSp cGFyfQ== SPECIMEN SOURCE (test d6nhtSYhISTruBC9IyRmVUG code = 3377) mt1uzm6FypXFsmVLrGVuruB SrjvSrvr26nWX2uM99NV7fU EVyOpT3NHGdzqV5Owz3GSIg MBRsqWStG119d2ywm7vydsR ezGD7pZozOSKzfxtaXmK8AF stFFSoctkqXRq4FLduQCCdw FR7FVEonOUfN6OvHOFdHM8u qvq6ILO3FTlpXFQbSbO4NKE skREuURPnvLbqEPrhi920SG F7PhSjKJLnqtMsmKeexR7yY nMyMCBNaXRyYWwgdmFsdmVc cGFyfQ== GROSS DESCRIPTION v4hxcBSwLBAmeRNtIdXcKXH (test code = 3366) uVYTmg2zbOHEgoOFtFmDeMu NcZnRuYmpcdWMxXGRlZmYwe 1err079rOHsq0dhJQFrHcY9 wFIrSYGewDEuC539FEHmLGu vo8ejg3EjUJVwhQMmj9S9SR MBxwriaSv8mNzhK90ef9D8Y udhE3ckJWOpAFBbW3LwLU4d KMKlUsd0WNH0REI3QVVaZBW gI4QcLP3vWZWplKLnOJd8q3 rduTabTFApTDN0j7qoLQqus wQwDP9lkh0nzVj1g2qjvcDp FVCpBJWkaGSLFZGzV7NigFq vWq4quCy2fIsjFffwAUV1Rc h7LU3vao60arm0lWvwXKSqu bfoByM0JMfhRDDjzzszSFa9 MFxtYXJnbDcyMFxtYXJncjc yMFxtYXJndDcyMFxtYXJnYj drEAyrCJPvIVD0QExmi208P FB5RUdhu3fem9idiTXdAiq5 BJTrFtVcJlnyCTmzp3Ifa3u aAUIcbe5bKEJ9kHKcgNktm0 Q3hBHfQKVxtHWfiyDjRKMjF hO6GMswJL2kfw31DRVgNWC5 ii2asPHihPqqfbQpqLIlEXm qQ7ZcTMOak190RNEtG0KmPZ Vtn8L9veVkQpUwYYScmMJ7j fR9ONMgQJc0aRChaiE5isBi zIJlC7undF94TeGmxHBoE4C leC30HnCrzWNqJ8NpkZ97Xq UgkCYcN1IgoN34NcXwaMPwM FPmcMBtSf7mjRSihDAbb3Re jDWvNSsuX90op897UIGlthT vX4oteXFrlpqnpQQltsixLJ mzceQ0JNXvKFOxSAjgRCLjD GZzMjBcbGFuZzEwMzNcaGlj jRfuSQonCkAnRAKsJZhlN6z cZjBcZnMyMCBBLiAgUmVjZW s7RBPbyH6hCv9voHZvzT1qh CRrCXstIVM6pDSsSEXzXDRk VLGvRA43C4KpnK8dd6BiOTB vb34dYT9xTNPzpSXbIMdiei FsdmUgbWFzcyIgaXMgYSAxL lXfX70kdC7aiCFiJ5ObWOL3 IDAuMyBjbSBpbiBkaWFtZXR arwW0PE9irWhkcrD6tTNknY HzULrqaOZdNFavTUN7Dh3rh VDwUDCaxoZ9c7DzBEdhISFn o3RxaAAhNTNiQyrvLDNqtMT sEKYbfdTuoFqkoR6pYsJdUc MyNFxwbGFpblxmMVxmczIwX TwoiaenRNOeTYorE2tpNdUp YCJmbPdiRBdii0BvBEFdHCB uAwDcPJDxDHXue6esJZ21XC xwbGFpblxmMFxmczIwXGxhb bcvRTKaUGemD5uyQyPqSSPt yIelMLuzm4KgXLAzUREmAaR ccGFyfQ== MICROSCOPIC b7yfkVRiBXEagPC1AvJpLNX DESCRIPTION (test code op3exy2WohSMcyGThYFntwJ = 3371) RyrzQufo90yZB9xP03EM2aE ROoVjE0BCSnjlK5Pqu2WKRc FRGpnMHuE906t1tvc6ndadR gsPU1zCxcPPPjtmngWoX3EG piEWRipuroFFd7WRqbRCKwl FS5ACWvjHTpE4RjTQQgSY1j pzp6ELM7VZxaQMSzFnW7UGB adFThUHKldRvpACrgm137WX X9ChJzGGZdztZqxSdogN6xV pMnDQCDYSSst7SaYNMgPCFc cn0= SPECIAL STUDIES (test j3czwAFmLCNljFT4FpUbZJY code = 3376) lz1imh2ZxqYTpcXEqRBqozP XpzbCgri98cCB2lM36OH9fU SWyYoJ7XSPktbO2Jjn4TJAa WQZmvRNyF946NCMnYDSciQy lxak8dZ11ZSDxtR1uyGBgIY omvrLwLLtylfUvzfPwIme5I JJ1mOggEKGtrndpNsX6YIzb UUFdryomWHy0FTgzFSYvhKD 7EUXuyFMkA6AvAYWzQV4flm l1ZLY8IFulRHRlGdI1AZNjt WBqVJWypTowBAcra843TKE3 EjJxFFNyksOrdJapvT4vTsY cZnMyMlxjZjEgVGhlIGludG PbpYLrfXY4kR6wUU2vUWNhx JZnQ1PmBYIvnuTsgCQoTJU2 iSKdwZKpPQ3lSYuqyUQck2d ze2RfL4dhkYrefWR8SG8yPP AeJQDwMEpna8OaiU1eFuceH UDdS1EaZRQWX2PBNVVuHSLU Gy6OEpAWLfGdRgXKAd0gXQg NUywgQUZCXHBhclxwYXJkXG MkOHNSm505uw6zIEHzcPIwi eHKgIEdcI6hDOemEQpsFQmd hBPwPOatl2ccMFRpl6d1vXA cQCGfmwZgu2lzUGjziqYjGO CieCGbpBDgMGAdm17zOSfkh YxmfSpwHLPhf4FexGeqs9Lt FqBxQSkda5IoY40agQYkhWC iaJsqJMTsosYhBATxz93py2 ksEQQuFtM6zRKnaVH9wGVhf NEdg6AbbKszGATwb0nsERQv ao7zafypeIFbm8KwfH7jvvx qPXoxbFFjzzUpIUYjw3x0nR ZbFJIdFBFzUIfojSo7SRSbb 878vv6ddiD7vXChGZO6ILwc YWJsZSBhcmUgZXZhbHVhdGV rJCIqvbAgPFBdehKSuG80pl 7qaBE6k8AwRJ3bf3JioPJ4Q WNobmljYWwgdGVzdGluZyB3 XELgcASjEr4maEXsWXF8TNG kxBdrrfBTwC4nCFFyLUc5VU XbQiQaIwtgrtXVGIUlH4YpV IWmhfXptxpqXMO2rL6va4r1 TKzeFo4oERSqtvxdf3oolnK ayDCrb3TsTCIkxrAmc1LzOV NamnOzrIEdLRWrfhCmnk1to xTzXTPtPBXdO7NtarethFcd kvD9UMDwPBRbxTJxoTukDEN kZTv1KTjwkwGkj8FjYcZvof EbsXXrywSzNI0jJROamDBlf eXdTTP1LQBlGEKBKlAmSXYu h7OyCJ8oYDIarSinLRZssM7 nl8ZnSOEmo46wLWIiDZRXPH EgaGFzIGRldGVybWluZWQgd FgioCKdaLOoCZUeAYCfAW0z FLJzwmZvgQVyz6JzsWYtdkF ft7BzucXpKWFbIUE5FvQWbS QpnOYiiRYsgwC1s7HmHQYfo mKaqLyvmLXntDYtxBUvf0Bu xf9qIQVzn6gweMczMM2heCZ iZSByZWdhcmRlZCBhcyBpbn Qgn9IoW1Z7pF6pZXzqh3OzD w9eXALct7SyydAiDhSMfIka HZakSt1dXBGcnlaqhBXhJ4V ydGlmaWVkIHVuZGVyIHRoZS EPhFidfCQqrMJGZSSqicQ0u 8L9TGkryHOwrxRvAF63IPUd SM1nxLBuhOArz1ZgYLi0HWT dR3oCJD72CLgcMKCeyYAjaN mkjSDwDMKmGUHhpkLnlc7vx KroxAAaj75dvAL7gWT9FTJy gB5jK4RcZNghIj6iZKNbvwu spUDdnCjfOl3eaJLquW== Gross assessment was [facility] performed at ([facility], code = 2777) Department of Pathology, [address] [place] [id number], Technical component [facility] was performed at ([facility], code = 2778) Department of Pathology, [address] [place] [id number], Professional component [facility] was performed at ([facility], code = 2779) Department of Pathology, [address] [place] [id number], [facility] [id number] 15:29:08 Test Item Value Reference Range Interpretation Comments Case Report (test code Surgical Pathology = 104) Report Case: [id number] Authorizing Provider: Logan Russo MD Collected: 06/18/2021 11:41 AM Ordering Location: [facility] Received: 06/19/2021 03:44 PM PERIOPERATIVE SERVICES Pathologist: Tom Paige MD Specimen: Mass, MITRAL VALVE MASS- for MICROBIOLOGY then pls send to Pathology DIAGNOSIS (test code = [id number] 3220) uZzEwMzNcZnRuYmpcdWMxIH tccnRmMVxlcGljOTYwMVxhb sEwPXCrjSLcF8OaqvoyDEvj LH4aRA2knHskgNWqsSCnAOE fUiHvj7vxa756sUGly2lyES VLjnhozXg4jVejQ10dr1L8K pmeC69mbHWtPWL3MQYpQNRy qQDmDGAgXWV6WJKrbKTjU8v hIHSuZU8pkykcVAgmUTfyVB LkwVA5HSFduQJlX4BoSLSeS XavGUEcxkn6IcFjYx4fwNOc eTcyMFxwYXJkXHBsYWluXGZ mVyWgKW4tUTMHUpJvWF7GIV JBTCBWQUxWRSwgREVCUklER T0TSoUkSB7NFLNQELKDZziy cGFyIEZJQlJJTiwgQUNVVEU dZR5OGHYOEYSNE4BKXWAGO5 GCL5XMHCZXNgOsT3PNL3hWS TZRFWqCZk6cnTIoFQTXVZUJ CBpvJ5CUNL0KDUWLAwUADkK ES7VMU8IBDP8PZ9YMDVWVQb EMHB5DQN4LSEUKIAYEWtTAW MSUGuBNN5hAA3spBBelVGRv X91AUlUPYRMYJ17jT6bFNEH XLFRPA7ZJI3jDO8lSCWrnV5 ITRKhJMcBHFiZPQBVODI9DA cXRTH3wVRCoou04TNU3YcUm f8I3WXG8EBQmVKHkm8zlJVH mbGFuZzEwMzNcZnRuYmpcdW XdXACfZeBuh4zhz948pRGgt 3zkVZBvCxJ7mAKuVKJvxXLn Y515FCRkKWytq6juo3UhBUE axLQke5B1PCUTtdrupUm6oQ vvD51jo5U7TscuH6khOFUhX VHhZ4FgWD4pTOJkYkt6ZBO2 LOO9ZZZaWWApE9MyIV7rEDH guXFoZDx2t8snsOuiYXLuFM B8c0rySBswatHbGR3ggc5uq Zt2z8ettbWfNUXxNEHrfADD URZdN0IgoDuhWq3agPn8bJc dDnunTWN9Spr2VF1xyz96oh l0jBeqRUBevzfdZqD7NZwwN OZtxyapOQq6YQzfTXSucYF7 MPZgfJMdP4TdWMRsXM3zyyu 7UXK1KWioLUOoYxR4EXWazM ZyCPQbuFyjLNeij430WZP1J yKyCA8dQ3Svr9L2wV5voTUv UWVegZRiYoLdNKBpab5mbIU hYNulr4VpQVY3rbD6hHVyrE PnWGRcLxP2PIacYF2lch21Q KIuADA7yp9ufQRnlEipusPa cFFpIIkyF5WtILUhy103VDJ rB3PwNTMpd2T1srTfEmKxTI TvjFZ5jjK2XWEvXV9zeuexw 2msJKhvDNofOWQjncU0mbR8 UXDmuJDmO8XfkS6zUFJkJH7 oniljd2xpEWN3PUkaDITbQI Q4RdSfRNNbq1Cztpj9XuTvs 6KgsLIyXVesE25sf698SXLp aoHlM4weiYChcfheoHFodfv rOMxgblG9DVIyWQbiubfkYF RaBSsqJ3jvYsToWUHanBmtT Xchk2CeSYCaVFDsKkCtfRPk KPHzKpz7XREydVRyQHOyPgJ uL4dsxllcXvJISBWca0mmP0 hsuVJVeOOsQ5VaORtjlzSqG GrwWXmkBhBtGGSvVA82SMG3 AMSfmv01 CPT Code(s) (test code j6udeULuWETviWA1UuNmZKY = 3357) pe0zfz5KcpBBcmDMjRXbwcD EeatAwpf12aXI2dU78MR0vK UVsWoF5TYImytF9Vdq7PUZs QBXrpHHaT274r7yfw3eqotL emTT3dVpiEWSgzcdxBwF6MU xxXDWajhknFAu7PIjfEJWyg YT5XAVgbAEhC7PcLPPnJO8e gos9KFG4SSjnYFLdTpG5BVF fwLNoCXFbsBfeFBifm877IX S3DzXoHOIpmtPatZaddA3fR tUsFFO6SRJuBJxhRDrtWSEJ H2lyHUY7 CLINICAL HISTORY (test n7yccVVyZHFfiOO4EsWvKSP code = 3356) rz7hlj1BttYJsfEVxOUparN GkzaIbjs08tMA1yG29LV5uG YHuNyM7QXUyxnR0Cxh0JDXg ZXPtyBDjT880u5idq7nritD exBS1vWixJIUwoaecQuW0SP fiMRWgjcnaHMe2VDtkWFIwf PX5GRHqhWQfY8GjESAhRD8x cbt3MID8BGgoZHPuXgS0JEY hxAVfHZQoqCzkIIwqx374DF N2JxTnLLRurvUjrBkzhW2gX jQnOPOYpkHhD9WoXYh4kGGb cGFyfQ== SPECIMEN SOURCE (test o5ergYOrMKBenEC0QmHiGZJ code = 3377) tr5bxr5RpnYGhjICiSJiedP EhbrNuqh90aQE9zQ15ER4oY DXxNrW9OVGnrvW6Qqu3CCKc GWRexUDtU750v8yfe6oxaqF hcKW1zNzqTBUokytuHiZ4JX pmFGSnmdepVEf3RIfxIQSzg ZZ4LRMlqBAsT8FwBYPgPC5k tla2SED5CWevHACjDbX9ANY nfVAiASWqcYtmDUkok380TL N5CiKhLKPrnlDtsMmbkK9kP nMyMCBNaXRyYWwgdmFsdmVc cGFyfQ== GROSS DESCRIPTION u3derQFwFBUvxXBwEmXnTUV (test code = 3366) qTANvy7rjGTWgcRTcIeSdQy NcZnRuYmpcdWMxXGRlZmYwe 1yhl642vSJhq1gzDQCvFuV8 eZJbSZNheJTuG347EKQrUOd ua8rle6RtNRMpfVYaq8F4MY POlgvotBr4vMlyQ39vf8B1N ucxS4scZUHiIWFaD1JoUR6f EPSpSac1RSG2IEW7WBCoIOO aQ6QqFP8yBAIqkLXuJHp7c7 jbtVzxBZWzNRO5c4oeEVloo jSyCP3lqk1csHe7g8ysjmBo NVUmMCPvmSVPVENpO8RpoQh jNy2wxKr9dUazTxfcFTF9As o4DW6ssw28qag8bEtfAIBvt zksYeQ7EFvzHPZcqtgwVMi8 MFxtYXJnbDcyMFxtYXJncjc yMFxtYXJndDcyMFxtYXJnYj wwPTmaGTWdJAC5WJrpc410I JE8PRwdm4glh4vbeESkSqg2 NAJwXzQqUwqwWQkmc2Yno0m zJQArqf3lMNY7yOYgpTmcx5 U7aYSaXQCngMLslkAzHNMsK oX6TYauOE8rpi05BCBpSJM6 az4drWUcpFvqtySutFLsSFc hR6RvSQZug028HYMyR9BqRS Zak5F1paVfZxWiRXJbrDS3u cL8QMDiDFq6fNZsraH6huSg qOKuZ5vgsP07PaVsgHAjG8J zrG43NwFfhUFhK2WivH62Aa GraWAqO3KieW62PaIynYDkW JGqeLFnEh0rdSNmhPTaj9Ig dWXxQArdM93po551JZGwyfI zV3mrhEEneymixJCvwadcBJ hiwiY1GDAyEOCmOKsyAHBbH GZzMjBcbGFuZzEwMzNcaGlj xUkxTOekRjGvCRIzQVbuA7z cZjBcZnMyMCBBLiAgUmVjZW b0QOPwqR4qWn2ioOWdeK9wy TPlFGsaIQU8vFMdDQGmMJQz WTKjCI47E6AhhQ7hk6DyUYB gh07yRE9rJPBikJErVUmarm FsdmUgbWFzcyIgaXMgYSAxL bToB70pjN1gdCCyY8IuSOI0 IDAuMyBjbSBpbiBkaWFtZXR drhQ3TB3qjDgqqwY8bPVnfH EjBWntsUBsHUmhSYS3He4vp NLkMBHraeE1h4SkUArwRJUy b0EaqGMcCVSwIoqcFTSriZH oBBGmilWijJmgwH5jUlVzLm MyNFxwbGFpblxmMVxmczIwX CnzdcytYAKeMPceW0qlWsWc BJNaiHgsFTmfl5IbPCLkFHJ yZcXqDICpYVMvi7xzTG60UF xwbGFpblxmMFxmczIwXGxhb akvUTQdURlcX3hgMwEvDFPo fKstCBnmb4RzFRVaIEEzWeY ccGFyfQ== MICROSCOPIC k2pwpZZcDJXkuEY9NkMmBUE DESCRIPTION (test code hp5rix1NygCGhoLNtJTsdvC = 3376) HpjzVdue59dYJ9gS76CK3oT NQwEpJ8OYEonkT5Tnj7COXt IVZlfXAhK387a9vcn5toukW snVU0sAmqZAKkeztkIcT5CQ nsAZQokdirDTw9CRdxPEWbc UU6INWosTOnV8PoNJMpLX3n uvi0TMG5CXwlNECoGpK3TKZ laAOvOVTsjXgbPDzkv060YO K4YkBxXEJyvnAwxVuyoJ5fP cTiIBHJHGOph7MyXONzDEHk cn0= SPECIAL STUDIES (test i3vumTGzGCYozBD8LqXbAUL code = 3376) zr9oop0TuiRGvyHUhIEmxiL VuvxTguw52xOD5aR47DU1uG PAmHhF5WAMigzW3Stk0PZSx FZMbyVNfQ861OVHpBQNesHn mskf2sI04MKQxbR1ljLKaPX asfuKsAUzixhWtapWrTwh4K OS0lBwzNHUylurtOwK2ECnp WUWczggrMXp4EGvsNGAptGS 4IBHbjBTvN5BlLLToDL2iki r2SWP8JYjwWCQoFfD0GXDim TMvZEYxbTpaYZxte067XZN2 VvNhNJScsdQrqQxrnK0xWiN cZnMyMlxjZjEgVGhlIGludG MqcJRdpEM8wM1kUI6zTPZma QFsQ6EdCFQjpbSaeVEsQAJ0 bMFzxZUjYG2aNYepvSHdj1k dl7BsV9ixgJpgbGK8HJ1eJJ SnIMXzSYihf2UknF2aMprmW SUmW7OtZDJGQ7ZKCSEgGLTR Wm7FZdRSYwXxAiWTDs3uJLe NUywgQUZCXHBhclxwYXJkXG IsJZXDs414sb8jNYXttMDwa nCTpMBplJ9pDYbbCYamILxh vNLxRUwnm7ebTKXdv4p1kAI yQSXuynMti0htSEpzolTsYS PdxDIngURrJMBpd00eBLsnm VvhmNtcXJAek3GgkTwta2Xq ZeAuDWoyf4UzF34ccQIqzTW qzXfiBPZonuUjONJjz60ff6 rmZTVuSeD6tOOnkNW7bRGrm THsz5FxqBoeXALzh5jnWQSe py3oxvxytVUit7EphG3aqwk fPGqrnEUpgpDdXSMej1i8vV QsFKRiBWPwXIgqoAy9ZUJnx 406xt5nzcP6oYJtJHK5SOin YWJsZSBhcmUgZXZhbHVhdGV hCDTeymLrPFPtewYImG97pk 1atLM8y1HvNL5ex6CqyWJ1F WNobmljYWwgdGVzdGluZyB3 HNDiiUKgIx9mpCNxFKX7PIY iyEjvrlJIsE9nPAAoVDa9XI IdHfOmHxuxryRDKZQzO7RaY SUslmYhfqjoAEN2bO5ag4w6 GCgfUx8dXCZvndxjq5zqzgK xrNQxd8PeVSVznwDrn3OhQZ OuyoFoyEDgJJKmrdUoup5yq mArDYNyLPZtK6IsuvrisTkz tiB6VIXvRWPoyUHekIilGSA eJGx8LJyynrZoe8QcMlWrxi RsdWPzptKiBI7vJKFooRDcp eQaYZE2YJIuWUJZUmAvATHa z1ZhAX0eAHNiuBozGLCckI3 lu0GeWINkd22kARFiRWYCDH EgaGFzIGRldGVybWluZWQgd FijuBSzcOOwGYMkVGLpXM9b QHZjzgHytSAku3VqpYCknuN va8AdmcDzXRMeKIR7MlPPpJ KfzPCprDIdgsS4g4RnSSSuq hBkwCdquOYfhVGhwMYkr3Du od9oSZPvq5qfaCieDE6jqDL iZSByZWdhcmRlZCBhcyBpbn Fzl7GvP5H0rH5pCXhng7AnN x1qNHRll8DrqyDiYqYVfAwt VWgfQr5fSRSiwybmoVMiZ4Z ydGlmaWVkIHVuZGVyIHRoZS LDjSgdjCAssZQBIJDgdlT3v 9G6XPlsfZBiwuAdUU93GIGs FC4hdPGuiXQov8CyMUv1JNB tC2cJGG57TWbfBNNbnLDqcB dsjCEvRDXlXTYfbrCmzd8vy FmmnIVhb57eoCL8eOQ9XFOj cZ5yP7MvMNppLq2xAZEmmbm yxOTmdWdcNi8dvFNtcW== Gross assessment was [facility] performed at ([facility], code = 2777) Department of Pathology, [address] [place] [id number], Technical component [facility] was performed at ([facility], code = 2778) Department of Pathology, [address] [place] [id number], Professional component [facility] was performed at ([facility], code = 2779) Department of Pathology, [address] [place] [id number], [facility] [id number] 15:29:08 Test Item Value Reference Range Interpretation Comments Case Report (test code Surgical Pathology = 104) Report Case: [id number] Authorizing Provider: Logan Russo MD Collected: 06/18/2021 11:41 AM Ordering Location: [facility] Received: 06/19/2021 03:44 PM PERIOPERATIVE SERVICES Pathologist: Tom Paige MD Specimen: Mass, MITRAL VALVE MASS- for MICROBIOLOGY then pls send to Pathology DIAGNOSIS (test code = [id number] 3220) uZzEwMzNcZnRuYmpcdWMxIH tccnRmMVxlcGljOTYwMVxhb oLsXPDroNTlD0AplypiBQoh NJ1nUX9gsZoslFLteCFiMMG gGhPor3bry023qIOvz5asDY FHqsgxfFs2vChoT59va5D8R hqvZ86ahUMrKAY9DMLuYTQw nSWvHVNyBHF4CQNgfSDsL0d lGUPbWS1njraxNCblBKttJW XfrDU7WBQseBIyX7DfLOGlE DgaYLQfvkp1PlAtIt3vvJOq eTcyMFxwYXJkXHBsYWluXGZ gKvPsOW7aDNJWBjBlCF3CGX JBTCBWQUxWRSwgREVCUklER P2MVrTuAC7AELVCUPALCfth cGFyIEZJQlJJTiwgQUNVVEU fQF7VDRUDBXAFH9YBHJDYT7 LVL3KYTCADRaKfW7NWV7vHI CBZXZcDQy9yjBUvCOEXPBDO FDcyO9DPSI6NNAOQBpGKCfS BW7GFW0VWSD2IU1NOXEVHQe NPIY3OJX3AAWYIJXMTAeZYP XMSQnJXM8gCZ0juQZvmVUXi C68VCoLYUXLHF13xU6lRSUX TQLEKR3MBX7hFX4pOSUjaG3 ADUQeKYnBKVxEPDSHWYI3IB bDLAN9jBIKncj74BFX4VyWi p7C1VJM3TZMiUSLlj1otVET mbGFuZzEwMzNcZnRuYmpcdW HnQLXjCwCat0ohx059rKDnb 1mxCICtDiF1bYLxWFWivTRo R863HGMeTDyhk8bel3RlXKF zjSUvk6U7ELUUieojeZu4aH baF74sp6O4IqojN8eaDDXsQ VCdL0NzJD9vFSDlFej6JYF6 FDS3BDWoFGRtB2ShHJ4uDON fiPPbWAz0x1zwsForFOPsWV C9u3vjVLaoblFfKN0klh3am Mv8g0icvvJpWRAgWULwdQYV CQDlM8UujRjnVe1luQb6qGk bJueaTRK4Ywx3NV3zco22ga o6fSryLDOvamvmKuY8EFvvL RMoqfaiHLw7EAmqSXFbgZA9 TSGbeYMhK8UaXVTxNL2mwil 5UYY5ZEdmBZNgAzV7PCAbjB OlVEVpjWoqLEilo630CBT2F iHgLU2wN6Cqm4D6jJ1pxYGf QMBleQZwZhGsQWQgwf0tyPK eEMraa9JrXFT5tyE2bIFesF PlGWSpFsM2DTzkEX1bnx19L VDoLQZ6hc2kzVKmnIjnujJs kKAfVCflN7BeNTXpy628NMJ wX8MiCHFvy6O2nsFpAaFdSG QksEZ0ptA8VZXiMO7tpcmky 7pgUNxpIChgSQWdtcU4rsV9 NYBiyFZbJ0HwvK6aZNUqLR3 mlnpif7iqIGU8POwdPXMxPA K6AxYbHBJuy1Ykudr9ExFbr 0NguUZdPDifJ53uj584TUWw nvDyX2ewhBIdwqbpbXJvrdr uAXwgvlV9ZNGzSNvwpgteVW IsUBzhT0eaGpKxNLHrfGntW Tobm4LoYSHmDOKcIbQycLMp ULDlBtz3ALCvfVQxWRMdQxK gP8vgenvoMrDISRRaw7zfE0 wbgPROfNRlA2FbTNoyufRoO WmkJUbfIzHlIVIpTK30ALU5 URIvkv64 CPT Code(s) (test code t8sqeFVrANBxvBZ2OsZbZTI = 3357) tk7boz7UarXAayKTzUHfymP PmqwEpnq75eMO0oH63BO3tF QQlAmH4FEVtluP0Eri1CLIw KKPexVYeW657c8ftq3lcdiK swES8xEbqEGGmiqgcLkK9EB wyHBYdtejoDBx2ZEuaRFDua XP1LDDoiQUfL0QwIVNbAF4w uxt2XSK5JEgcZCLmCfQ9ZVR fzMCyUOJeqNawWDqjl471XK G6KpLsDTAhkmJetIlftD7uH yAcKWW8YMQkYTkpADxjPINH J8jwCMR5 CLINICAL HISTORY (test j8yjfKBbUCIhvAA1EyOuBYA code = 3356) rg6hdh5TayLAuyTLaZBiqgF AaeqAotp36oGB8zR74BY3xI HGuJsD6RYObhlY6Khu7VAOc YGFrbAFsM361f3dfd3optfC wqQK9yMgwIKJoemxlGvW3PK xnELSgvygjSJo0VQicQCGxk ZV1RZSadDLpO5QmWRNbCX8s woa6MQK8MIkaTASbFhJ6CYB xsPOzMVUefBsrFBjfe106JM B4KtWjXRQthjUqeDlytE9gZ dPgUJLPabLpX2LfVIy8yLFa cGFyfQ== SPECIMEN SOURCE (test l8tmpRGcDVQvjRZ8AjAyMLK code = 3377) el2mwd0XetKTczXAoNLgupK BkbwZlnt74iCZ6aP41NA0tY SYtRsS8COXprnV9Rux1FJNu YJWteMOsX271i8odh7fcapU mjYK8lTjzMJXawzehEnR0XQ lhWBWmvhhzNLh5VAggFHNui OW9ZYKlwVWoY4ImSORxYK6w gnm3IKS9GMqtCYZrTbS4BWQ psVYrIEWsfVzmGCsxe150OX G0DvHkNOCtbbQwbHqsrY1zD nMyMCBNaXRyYWwgdmFsdmVc cGFyfQ== GROSS DESCRIPTION r7fclFJwZTHnsEWwMjXwKFU (test code = 3366) qPAYai4diCOCscKSaFiAcSs NcZnRuYmpcdWMxXGRlZmYwe 6ieb633yLMyt2uoFMLoZsS5 yWHvHSOxfLWkV735EOFnCRr pj7kmd6QiMCUdpPZsb8W6AF KSqkcmqBa2mAfzM31vg8D9K bjtW8zkPQEaQIBfG5TvFX0t ACLhFdj3JYL4RDA1LTKjPKR eA1MlHD1oFRQzlHIuHQv5i0 dpwPtyCSKyGBV7x2glTLjyj fWrLQ6sia3moQc5q9umliJh SUOpCVVovFFFUFNxY2ZxcDy bPp8roIo3zLcoLsujQTN4Sx g5VI4sml26owe9jJorHTShu jhbYtN8IXmaILDativoLDn8 MFxtYXJnbDcyMFxtYXJncjc yMFxtYXJndDcyMFxtYXJnYj dcWWknRPGeQPS6ISuab059W ZM6TQsag3cpg2tkaLXxBtj8 JYWuTsRwDywtWEsek2Kjt8b pWQSwbn5qZUF1xIQxeTvht5 N3bWLbAXOxmTRfmjGmVQIfN nW9YWyaZZ9qka30IYQfVUI9 az5dmWZynPejpsYimTRpUNw oE4TdVJQco381OLQhU9AhPD Xag4I2vmQzGwUzJRJylOF7i hE8FEXhQCo7dZLbepV8lbJt jMWdH9mamI26KuMvqTIdJ6L jrM53BiJmjZCsA1BtjZ44Ji CeaVTnT8BnvB10FkLpcOPbV RNutHMhLa3rzJRrpSQnb3Kq nMGqAUwaW58gy435YYOxxjR wS4owkUMduwminLZpbduuJJ xmoeR5JXFgEUUgKIufNVGaS GZzMjBcbGFuZzEwMzNcaGlj rBwgEYoqPtApEHXxVRtbR5s cZjBcZnMyMCBBLiAgUmVjZW m0DWJqdL9iHr2oeNSlrD0fv BXnWFkyAEW0lJCkCURtCRJz DZHoIX68K1SrgH6kx5YuJDH pa84tUI3eXSXlaVWhUJncmb FsdmUgbWFzcyIgaXMgYSAxL bAeF33xsP6ugGVmH4LuGBE7 IDAuMyBjbSBpbiBkaWFtZXR fcwG0RY5cnXhdywC5nGZpiK GoGOzglLKhSVtnVOD6Ah3ti JKbVDZcyfJ4r6QvXQnvVBDg n7OlkDIaAJFiOaivWKPhjNH mMYKmbxAiyMacvG9sUaGiMu MyNFxwbGFpblxmMVxmczIwX LseruuiQUVmMVclM0yyVtLh DXTyoGkxVXhiw2CqRGGaGXJ oXeYgGWNoTRYzw0mqSA42OD xwbGFpblxmMFxmczIwXGxhb nziNBKjCKzeV3rcWdPvBDGx nEsoMGdpd4TlZAPyKVMnJiA ccGFyfQ== MICROSCOPIC i3uevAElCMYfcNE2GsUeLJQ DESCRIPTION (test code gk4qbd5VcdAGxtUHoNEegpI = 3371) DqbcWvgq87fIC5gQ36WF0kB WWzCfE6VAEqgwZ2Ybo0XLLj RYDbfQGoF792f2zpw7qhccD jmCO5mLqzXEWmmlqiMiT6QT haWMSawdteYEb3PVtcOLRpq YR8FJSlqHDmF4AjQPXcRX6n mju2VDH8YSicDJQjTqM1JKK yhMFtTLOrvZjvZDfvs411NC E4DsCeLHLlaoJoyToptY2zM wChLJJLYMTjn8UqKEShMWTb cn0= SPECIAL STUDIES (test r9jgePKiGWEdnZP9PaUzGQZ code = 3376) wn2tpl1QhjSTjlSRuLElixX AqveUqqw18vOJ4wP99MA4rK WSjEeM7TOCtfbJ1Sqh4ALBj HNCmhDOmO308OQSwJAXwrKy xicx2cT82FEIwuJ2bcMXqSW zrviLiLHhjajRlggXnWtp4S ZE6jPuoACOqcslwApO5KJbp AYMmflbwHTp4XOimUFHwoRR 0OZLtuZExF6QaHMSeAP0axr n7LUJ4PDopMZEyXqN2BWTzt DEeYOUdcUnkXLrzz332ESZ7 HrYqSBFgkvFyjQghgB9wFrJ cZnMyMlxjZjEgVGhlIGludG ErlTOciLO8dP6hII1dWIWip TMhI8EsBEYqqdVwdCRaQYV6 bLClzOBpBK3kDZvkbMBml0x hd1DoO1qwoOxsdVV8BX0tHZ FyCSBoJHvmj8RgrH4jSvpjB DPuI3AwNVSCP1JHZNUyBZHL Vu0MZkDHFrRqRsJLBq8fXWq NUywgQUZCXHBhclxwYXJkXG ZpOJSAv943rw0lFBXktMZoo dQQvZAenR5kNUiiCLjoVNfb qZBmJCrrx0ohJWPkn7t8tLX dJMZtwaKbw0mrZAwhrxGzUI DrvGFvwFSgOLHky98dJWxfe XoknWfvPWYeo6EikWxos0Gb GyPpBVujh7DeA41ocDYqtOT zkLxiDMPcygXnBMWls55vs8 gaXFHaUyC8xTYsmAX1gDQwr NHfa3TlsFybHPEyu3cxUYQt hp6nfpxbeZKjq5LccV4vqym rFEebjYQbekMmXOJdq1b0kF OuHLMtPLYqMVyxpGc8XZIzo 253uu4kcuC6uDVuLLS0UYjh YWJsZSBhcmUgZXZhbHVhdGV nZKAakwHzFBGwdwHXtB40dd 2gyNO4c1VfKG2al2IowIQ3D WNobmljYWwgdGVzdGluZyB3 TNGgzASfZm7cjQDfWTM5VCW fjYnekzGNyH7iJWLcYSl4IG CoXqGuTsziahJSTCVzG6KxR JMgkxFwdfhmIOO6vM1dr1w1 IEtmVu9mMWRzjabzw4sqqcK oyKBob9ZzNDLctmYip1BvSU KrnvHeuJAjNWOfedZayi9kn lQcFHWyRDUxX8AaxkchlHoq ymD2LADsAQMfqPOjaRwhQXJ oUJg6DYiawwLbf7TzOvOnld DudYAkomLyAS1dFBBznZGuz lTnCWD5SVIlUEGNLwUrNGWi o5BdID6nCELwdTiyJKDydU9 ab5McFVLhm25cLYYtAQXXXG EgaGFzIGRldGVybWluZWQgd EqwwLSlsMMzYLMjFSMdTG0j IYJjgsUceYXxk3KznWJwrrK uj2IrzrUsUCTtLQY4GgQJnV ZpmVJjrLQmfvW2y3UxOGQwh vJxcKpjxTPcjHBleSBwu7Kt pw8iRYBzq3atmKsqKB9qcFF iZSByZWdhcmRlZCBhcyBpbn Gnc5UjG8O6mO0bEMofg9KvO u5aMMXmc2TthtMzUyOOiNxa SXawOf4uMVBypoqmvQPeP4N ydGlmaWVkIHVuZGVyIHRoZS GRbUlfvQJkuPHNKOStsdG4j 0A9JRdozJMbwlIlFS89EISe BI2cvPXipURmq4AuHFj0VHH iU2yZAX22IYonQPMffYZgwS bkzZJrHQOyRPDesuPiyg4ct ClidUUkm74fjIH5pVN3XRKa bV3mD2HgBAmeQj3aTGApqfo maBIqpTocKs9shVBymY== Gross assessment was [facility] performed at ([facility], code = 2777) Department of Pathology, [address] [place] [id number], Technical component [facility] was performed at ([facility], code = 2778) Department of Pathology, [address] [place] [address] [id number], Professional component [facility] was performed at ([facility], code = 2779) Department of Pathology, [address] [place] [id number], [facility] California[facility] [id number] 15:29:08 Test Item Value Reference Range Interpretation Comments Case Report (test code Surgical Pathology = 104) Report Case: [id number] Authorizing Provider: Logan Russo MD Collected: 06/18/2021 11:41 AM Ordering Location: [facility] Received: 06/19/2021 03:44 PM PERIOPERATIVE SERVICES Pathologist: Tom Paige MD Specimen: Mass, [employer] MASS- for MICROBIOLOGY then pls send to Pathology DIAGNOSIS (test code = [id number] 3220) uZzEwMzNcZnRuYmpcdWMxIH tccnRmMVxlcGljOTYwMVxhb cLxVXCkwVSpG6PbaelcGEyf KN9kIX9sbTfxhSEtkAKyVWU qNxNtn3mgv866eJRos6ikJI JHeobrcEt3rEeuM67dt4U7L nvdM91qdLLnIGG6ACMxUGAa lWCsEIHmGWX7CQDasXAzN8c gITPiUM7lruqiYSejTLtcAD UdwPQ8CCAvrGXeO4GwDPMyE SueQPQvqhs7AcCpMk0axPWq eTcyMFxwYXJkXHBsYWluXGZ aQqLqJB1vQLUXFrTkQO1WJE JBTCBWQUxWRSwgREVCUklER A0BHyUkGK9IYNAYWUFRLztf cGFyIEZJQlJJTiwgQUNVVEU iIU4RLTTBDUVAP3JTGRLVW7 PIF6LFWPSCPdSiP7HRO5hPE YKXOOdGCr2jpULvBPZTPOQE MAlcL9ICMY3ZESBGCeWAWeL DK8LCU2UJCR6OQ5HLKLQKAf LITE2DXC4EWHJHCYRMVnOFQ WCKCyQEO5oVQ1muIHgcEIJr J84TCkISHUOOI53fW0mFHOJ INFTUY4NMA0kPO2cFQDjuR0 CBHZpMEtJLJkHTUZFUJK5DN vQJZD5fWASxcz57BIY7VaWe h8R4XLY8BATfMDBty2buMGR mbGFuZzEwMzNcZnRuYmpcdW RgFZKnPoPzo8xlu912zDYua 7zvUJUeWlT0hUFkCBLvuDQw S110TZFuRNqve9zni0MwMQY ieQJmu0K1IBMRpfevhOh9sE wpD85ya9G5RzkhK6awNLXjT FQwQ2JcAG8lIWWvMni1GDN0 RWJ2ANTwJDOiF2RcKK6lEFU hyLIoRUm1w6xduKzyAKDzOU H2w4fpQFlpwqMeLI6rcx7tg Jl6r4pakfEoWAElHANltWIU DSLjW7DcnHctSk0coXv6wPa cYcphXLD9Vwt1MU9gnb70up l2wQhlUTSiiuynNiE5DAuvL EDsjtqlWDh4VNbiICMcbSW1 HPNadJTuY4NvEZDmNB0aovm 5TQU5WLyiZCSzDmS7QHWqfE ZnXKYweVslFNfvu469PEL1F tPsZJ4nQ1Chz3K0aY9qfESh YCYtfVHlVrZjOXOrka3lbME cAFhjn3IrIIY6brF1eVThmZ BrWAHtGeG7MDkuYS5jyy51V KMjJZG4iq2sjLKagCrhzxAb gGIwEWmdX2WmLHRhz082FUQ cC2UvQDDcj3C8qmEtTfSkYC SctNC0xkR4HGZyQZ8hgzbfy 8bhBQxsSWyvJTRtntZ4reE8 REFtlDBsF4PowK1aZZCsLD8 lqwgzt6ogMCK2MFcrXHViJA I9YrRdQSPzt1Sjwjk7KiMyq 3FfqJRbRFspV52jo719RIEt tzBaT6xjsPOcmasvtJMjmns wCTfplqI7PVSqXGoagvhdIR NvVTfuI1qtRlYwQTGtkUygZ Jeky3CjYOIoPEMhWoCqbVMg RLBjAoj4CUDwnRLlREApIjX tA7nywnkxSbTBXHCur4yjK2 jniMPHrEOjU4LrVZtcbpDnD FddBDbyQmVmNLPkDA79GSX1 NMMjtg28 CPT Code(s) (test code u7iueZNtXVMqeXS1YuGhOCD = 3357) zl2ckr1TsyIWwbFPeXNwcsI RgabMima75lCG3mR86KL9eB YXlRsL3LVJsegM2Uiz1BGAf OQMbbXVlS341w2jop6byidF lfBC0rTumRIWwgboyRdO2RO diUDJyyzzaGRj5UAkuGNMbb DY3OTSudOOnS4PbFHGdNM2x tje7HZK0QHivGVTwKbK1WOJ rzCTpPRNgpBeyBUjzy952JF R8MzNtFERjwdMeyAouqR4mU sKfDXC4UHKjTLtiDLofOMYO Y0dbUJE8 CLINICAL HISTORY (test j6uooFVhJLWdhFB6BpAoXJS code = 3356) sd3fas2CxsVDjdYXvHOocpE RwftLenf66aIW3qZ74JG2rJ EAoUcS5XDDuupG0Opg0SHLl BWNlmPZdP142m7csu7yxcnX vvMW7yNmzEBHkrxdeRgR5IZ ejPREfzpzeVLh2DHwlLWPez FR9BJLdzAXiE1AjJJIoEG2t qsu8PSL7ZGlkIAUwExM5WOS kzCKaQGCnoJusLKdzj022AI V3DjAoTGMfmwMytEpzqI5jM rDfTUWQwmBfO9UdQTd1kEVq cGFyfQ== SPECIMEN SOURCE (test w3ixtGJwTUMwrVP9SeAiKUP code = 3377) zp9jbj6UyfHDdiCXsLFmwvC VdymQjom91kVS1hM96YD4uC FBkVeQ5DLIpqyW8Ngh0BBIw OBVfzBMeD178b0pci3dhmzD zxQL9oKmvOCIaobssAcI4MU pzPMKogryoUHt6MCodUFRrm MA1KNFakDDnZ0UoTIUfHL1a bgp9TZA2WNjtVKSwJsF8QZS ztWQxXHWwySbdUByiw789QT E7JiKeQJGsodVpwXhohE1qV nMyMCBNaXRyYWwgdmFsdmVc cGFyfQ== GROSS DESCRIPTION u7myxUUdGLVrnSWqRgWhEEJ (test code = 3366) kBNCmz0aeYQSymRJsKeUkBi NcZnRuYmpcdWMxXGRlZmYwe 9qvw815uSNzn4mhEVFfFiV6 lTMdCNLwnFKcF461JTGjWZt iu0vsh8ChDUQhhWGhk4L0NU LDnesjpCv8tBwlL78el3N8L aycC8dvZCDwTOMeZ2EnJC1x BIXiMyv7WKO7WXN8OWBwPIH fZ6QfHI5oETVrmUXkTIb2i6 hwrNqzTWQvKIB3a5riEXibi yGnLD4xvu8ehUe1j7yzqkKt IHSqYKRjyKFMMDKxH9DfmBv aYz7clJt8dWuwNzvjMPV5Uo w6KG7hjn54axp5cIymOKZkr pirIsI1AQzjIRDxopjxUXh6 MFxtYXJnbDcyMFxtYXJncjc yMFxtYXJndDcyMFxtYXJnYj lfMIucQOLwXJY7AIeok303N ZM9ABowm3xsn3fuxYUzNxz5 XIFhRqVzZvvcQHnox6Grb6a hZDCjpp6wVCB5fMQpxKlnl1 V1lHShOYFvaYCdjhHqPAZoS cT5SGbfQQ8zyy90INRtBJE0 co0cyNSjqKyxvxGfgTKvWJo iV1IySEDxx941AIPeH1IgFS Ftq4F2vmTiVwDyYQKqqRH4n uJ3SCAmIMy4hMGtkdQ8jjWu rBPsU2ifsS06WeHyoXCvL3X flR40KkJsxMArH1GihR39Ra OglLTcH5DgeE82WiNlqEQeR VOljQZzDo7xxPMfdQEcm3Yn xWQiIFbbC27vn271ATDfwvJ eO5qsdXVhvgaqtTRbnhgtRQ jsakQ5WMUmUHTuINttCYWrW GZzMjBcbGFuZzEwMzNcaGlj cSrbKEghHgDrZCTqXAemP2j cZjBcZnMyMCBBLiAgUmVjZW y0INEjcI3mGf9boDMgvK4un DQaYMxkVEX4hYAzYTKqNXWu ZUOjPB96Y7ZvvP1sb5ZqKZL jz50wSE6vOQNesXFxHQerys FsdmUgbWFzcyIgaXMgYSAxL yYsE39qgU1kwABsX3IbAHB2 IDAuMyBjbSBpbiBkaWFtZXR wlqQ0FZ0ywJwoliS1fIFlyH KbSNpgkBYqLQmzTTT3Tx3in QWiJRMsjtE7v8OfYVfrQLRn y6IgoJKyIWCsUlmaENJjjBQ cUQCadtMykUtyqE0qFwBcHz MyNFxwbGFpblxmMVxmczIwX JaabpgsXXPySMdnB2qoJuDn SESupMslFVdko1McUKLdTJD sKbRoHQQfNVEef8wzWI25JQ xwbGFpblxmMFxmczIwXGxhb pryALTpPIqlY3vsRpZaQLYv nHnoTBsin1CvPUZjNDUkOcG ccGFyfQ== MICROSCOPIC m7adlVHiJMCqnCL5SiCcWRW DESCRIPTION (test code af9zkb3QnsUAosRNdWQjwgE = 3371) YbgsTbjr19zGB7kU54MD9xJ KXrGmX1LDYknfL2Nxh3NVWp RIYmmJRgA690u6bxz6vvrrV ubWY2nLooWJCmgtzoTvN3AQ scHSMhvafaAWc0BTouMKHse DB5NSJwrJLvY8TgMZSaDX4u sqv8ZFA9JVgzJMFaRtS7KXQ lcSAzBOXlnUviBQero051KI E8YtPlERNiyoGxfQmxtX6zS bNkIYVENQQmn4KwOCTlFPIx cn0= SPECIAL STUDIES (test h0wkjWKhMFDqaSI5YwOlARS code = 3375) ml3fnb6QknZNgqBZbMUuzdY QexoHdsx90mDM8uL46WR7kK XJtRbS7JQRhjgK3Nex7OJTx UWNfqFRwN166TQPfKUOgiWf vbmd8lH53LFUurG9hqFTeMP lzmqRnHCrgdvNzmzOtHjp0P TN4hJbwOQRimvxoFjS5HSmp THVjhrsyEDc9MRgrUIIseCV 2MZGaaIFkJ2ShOMQwCF5gyj x2KQK0SFvbNUEvReX2DGRrt VNcUZYsoVhyKWorz229EJX7 CbEcSYGoriAymOwdqY3xSjA cZnMyMlxjZjEgVGhlIGludG TqoJKjcTW3zD8eKG2oOXJma OHxG9SgIVWdrtCbfCBmYZC6 cNIqrNUrIG1xVRaklOLpw8j qq7WaD0ecmTlpxSX9VQ1cZI RhNCMcZMlhb9WmqE9gBfzwT QBqT8LzJENKW5EHKVIrEYBZ Mc5NZcQNSxFyElYCRa4wTBo NUywgQUZCXHBhclxwYXJkXG QcZMAGy258ke2dROSznSGwn pGIiVJmmT8wHSxwEMjnBLbw oNZbWXeyq7tnZTBit7y6pWI lLLJkelHkq5bdJYuudpWbBF WoxGJriNZoUWMwm78uPIyzq IccvXirNSBws9ErpNufk2Pi SdUxCAnxe5HeK06jfRYznDW xwSyxZXMvnfOkVFAun71ch1 viWMXeHpR6iRGpnZE4zHLiy FEqd6MrnCjuUIUbt0bjZVXs gr4wtnwuvPVch4OizF4cekr aHWxleYYaadFmTQUsb0q9xH TeOFLmYPOqKMhfcJr0SQHtn 661ih7uacB2hNIbZPI7SLlc YWJsZSBhcmUgZXZhbHVhdGV nKQElqrFsEBVsfuKZiO43la 2tlDE8k9TsDL0yn1GshOU2V WNobmljYWwgdGVzdGluZyB3 DQNnxDKrYb1tnOMcANH3IVG tbWyzgiYGdX2gNBHsQLf0FA AgQdZuOeriorBSQTEvM7NwV WOzjrSzldjsVSL3dZ8rm3d3 LFlrMn2cZJComwohw5jlrwV fvAHhz0DcJLVskrAsa2VeNH LrikYgrPQiLXJdvtTode7kj bMvFZYwPWTeX1SegvaanIli djX6DLQtMHKybKChdOjgQSW dYZr1LJqaleCvw4UvHwYjpg VqiQXwycDdPX7kYCJilTHbi fOhZTO2YSQmZIIVFcMkMHFr x8InXE5qSTQcuEasNVQvnN8 gk3ZjOQQsy44jBOYbQSPANL EgaGFzIGRldGVybWluZWQgd MldsSSmfKQwXSHzLBCpYT5z YUAuwtShgOJds3GthADclaP zt6IxnxJeMMUnEAJ4BwDSuF GuaEHigSNgdcW4b4TbODYjf gJglWrkkCVncNVmrXJlt7Rm ja1tZXMwy0imdGsiRW9xyLD iZSByZWdhcmRlZCBhcyBpbn Ajp8RaI1A8mH2pLPmas5QsL r2tWCOwz3SqshEwEcLClHyj IXbiPh0tHWTzweejgPKkA4E ydGlmaWVkIHVuZGVyIHRoZS GXgTjddPYvyTJIZJBaqtN8j 7V9OTgmfMCygtZfFX73ZGCh PX3jgTWnfUKru6RvONk6XMV kN9wESI28KLmrXSRuqYWdhU sbzMXkOGGzULCtyrBzwz5vg PdugGVft80gxSQ0eKN2RBFd oW1rK2GpGXcgBs2iCKDmdma zdBRhxXmfDx1gqBFunZ== Gross assessment was [facility] performed at ([facility], code = 2777) Department of Pathology, [address] [place] [id number], Technical component [facility] was performed at ([facility], code = 2778) Department of Pathology, [address] [place] [address] [id number], Professional component [facility] was performed at ([facility], code = 2779) Department of Pathology, [address] [place] [id number], [facility] [id number] 15:29:08 Test Item Value Reference Range Interpretation Comments Case Report (test code Surgical Pathology = 104) Report Case: [id number] Authorizing Provider: Logan Russo MD Collected: 06/18/2021 11:41 AM Ordering Location: [facility] Received: 06/19/2021 03:44 PM PERIOPERATIVE SERVICES Pathologist: Tom Paige MD Specimen: Mass, MITRAL VALVE MASS- for MICROBIOLOGY then pls send to Pathology DIAGNOSIS (test code = [id number] 3220) uZzEwMzNcZnRuYmpcdWMxIH tccnRmMVxlcGljOTYwMVxhb uFkLSNmlYAvP0LycxpsEOxx XO7yRC6ajShypWTjqYRyBYZ sHdKaz1rap629oBSne0fuVC ACtidqcDg2bBnrS10yn6S3I djuD17qaFJdPBV8VVHbFUVu wEKxJRRuHIK3BIZjoSIlL7l gNFWnGG1biedoOXnsOVtkOI IilKD9TXPrtQPsL9LaKAIhE TcpZRXgohp8AlRySs4khYOh eTcyMFxwYXJkXHBsYWluXGZ oZkLsKF9dUXUABxKbYM9MAR JBTCBWQUxWRSwgREVCUklER O0PNwPtKA0TTRJJOWWHDbad cGFyIEZJQlJJTiwgQUNVVEU qTX3RPQCUDGCLM6JGLAUAT7 XXK4XPIXAIQeSgE3PEP0wXC EQNQMsHVf2kwVTjRBMVDMGI JVssT9KLEF5XWUUSLwTMRwY BQ7BUP4GFJJ5TJ9HZTHIHFl MPYV6UPD4LTXZVZUXPInJNC ESEFgSFM5tNX1yuSPfaCFLn Q63ORaBZKUSJF49mL3nQXZX MGOJVE0QEQ7zSA9tBJSvdW5 WFEZvLPxTNVbRVNRYNNT3FT qPAVS6kQWLxbc69WIM4SwHp b8B2PLD8JRCqYHBhw9jqQTS mbGFuZzEwMzNcZnRuYmpcdW TaICXzPdFmn9sig869uKTyq 3wjSGVyLzT5tHKdGXMirHYy I125AGGfSJiqe3nyj6XtCAS wqGCln4S3PEAUziseuQl2aQ xhJ17ll6B8RhrzZ8chYOCrB AInP9JlYA0eLWYeJnz9TFU5 ELP8XTOkWBZoT2TqIR6uOZX daXQbHHv3b5mvcMqnEESvBT E4w7wxWZvuvfCcFB5fbn3ng Gc1f3saqfHfTNOvRAWhbIHS ZYAcL2MufQccYy1oxPz0uJy mBvkhEAJ2Vbs3NH7bco67uh g3fCsyTIErnbuxAcG8KWdoY QOtgebdDMr1QKdeNHOngZU5 UWRbnNJgX2VuISJtWV2gbyv 9GLD5NJguAVMrTbK6DMAhhE IaRVXxsRvdMEvru260IUV1D eDwJH4pN5Hze8C0vV6heKHo ETFhjHYoDrPyJBOzor0rxKZ cFNdpe3ZqEWP9rbM2zFLhbC FdYQBnMrK4QUxfIB3qii15G APxHQV7su7shPYwsBkohiKq cZSwUAzsK1KlIYBqq935KLV dU8PnOQRdd9O6nvDbEtAcRA DitGS7hgX7TRRgMM8vzoqsv 6swEYekGVwyLYSgzpV2uyE7 CAJggXAbU5EtnO4jAVWmUM1 umscuj2cbFIN9RYiyMWZlFB R3EyHxMRVrb5Xndno6IyWfe 2YcmWHaJGvqH50aa701TJXn bvGhG1cqoKEdswyziRTjxdu bANeluwD8JJXoQNzoerbaLK RoZQuvQ3pgZwGaLDUiiBnzS Ijnd3ZeVSVaLTJcMuPmpKTc AOTnOla9HGTskPJvQXAbQdD iX8njkjwaEdZZVXFhs7vfW3 ltzEUJtKIkF0RoEAapxjRjZ ImkPAwjWjFmZQAmKW61SUM6 WOPlsg26 CPT Code(s) (test code u2yukSZnOVMuwHY5WwToMHS = 3357) ul1oyl8MpyPMbmNUrYPqnfB HnhzJgqm28bFG0qO61OJ5gZ HAlEvQ5NHYujtB0Dfo0FIRg ULJvkTVdP226g2jah1fvlrN ofLO8wKfqPXHebkeqAsC6YK yjAJHghavySCd6DAdeSZHna LW4YDJtyVGhJ3TbBQCdZM1w qtg8DSC0JMcfDGNbTzB7IQR ptLZeQRJasJwlVRtsr133UK Z7DsHrSXVtfdPriTafiZ9fB uDpVIZ4OSIdFNcqIEfhMIIT L8emSTN8 CLINICAL HISTORY (test t2zyqWYlSDKxjTZ0QxVwJFZ code = 3356) sb1xnh1VrpJMvrZLdXTztaC SpbnOpqg47cOE6rS04DT2zX TZlZvU0PBMxqiA8Xyz2INKm BXWgzIZxU542t7vic2sjvjR qaLP1gRyyCURoqpkcXzY3BR icFBGqgkzqOSa7VGbmJGElr MA3LIUsvJUfB1AeLIQkGU0b pqf5TYF4NNduGUWyVsV7XPM sfHVwCJIvhTdaSImsl138GG V8QxTtYBNhnnFmpJrooB5fH hCrTEYTrnVwV4OvIKl8fQOp cGFyfQ== SPECIMEN SOURCE (test t6dfvZGwLWFzzFE7SaRnXGW code = 3377) rf4xoc3PdpPCnqKZrSHhmtH NduoIqlb06bZR6rI90NN5iF EFaTjH4BPDzrgP6Rsl9WNIb TUNvxWZcP733t4bno4jusmU wdYJ8aHqfOAAqhfayTrM9EI pqRVZnvsxzXQd7HYrvFXKph TX1NCNimNCdX7GwLSYjTH9d hle2RLB2MIuqLAYnYrF4JSO cmYDiSUAilEbvYMdwa175WL J0KaBzERWfbzKieIyzcB2sV nMyMCBNaXRyYWwgdmFsdmVc cGFyfQ== GROSS DESCRIPTION f3dmdQLaQZDbsZOeLpAxIJG (test code = 3366) wFWFuv5vrHDSnoUXpWzXrPo NcZnRuYmpcdWMxXGRlZmYwe 6zdt891gYTjo7oaBZXtDwJ6 xNReTWBpuMZyZ600FZJrFJa dq2cay4TuWJKojFCnf8L4JB JGrozmpEj3sPpjD16dz7B5C gyzU4laDKEhAFQoB8HcPD4k PUAxFqt8AEJ0ONF5NDSpIYS eN7StOY0vEJLdwTVtPCv3k6 wieCngYIYxEXE8u4tiUJegr qBmDU3sve9vsDv3r6owrnCg JAEwFBJnbRVIXCNcF4LaaLc iHb2biSk3hBtwIsohRFK5Lc l3XI6feh97wfp5aNxgHLImn cdpLgO9GSceKYWabjusUVu6 MFxtYXJnbDcyMFxtYXJncjc yMFxtYXJndDcyMFxtYXJnYj vaSEofHCEqYQO0PJypq823C ZR4BSzha2brd8hpqUIxBns9 XAVkLiZnTixkZSgdq2Bfd7w rIIVixh0oHBZ7bYAzfYpmm8 S9pZCgQWWdrJVthzYkREYfD dJ5SNfuRL9qvd28ERBsUHZ8 lg8ziNLpeMhvdtMufKPrZSe cN8ZaHZBez238CDWlT9AbOG Rbh4F8ywBkDbJuTFThqML8i qG7CKXoDTs8nONjjmE0xlNq vXCqY3jerN71PtOavDVpW3H ovZ68XkNfxGBrT9PboC77Ib BrnKMoG7VbrC25OyTakTTeK GWvfILdOf5lpTTskMNva0Kg gWErDReiK92nq485ILOqvoM sO8dguLKltiediHQwohhzJJ uhbnU1YOHfBNAzLRriKJCcY GZzMjBcbGFuZzEwMzNcaGlj mEqeWZqcMjTzCVUgJZsnA0a cZjBcZnMyMCBBLiAgUmVjZW i4TSXwuS7gPa2exCAaiS7zs FFwTDnyHCY0oXKzLDZbTCUp EZKdBZ11I9IwiX5jz4YaTJM xa51pHB8fLMKrsQEbOPpfcb FsdmUgbWFzcyIgaXMgYSAxL wIgJ35adK6elUQeE5CvULG6 IDAuMyBjbSBpbiBkaWFtZXR ncnS5UB6ckUdbzoJ1gIUtpZ LwZViqjQMeJWweOKR0Tj2fd SSeDXIamzY5q5SnPQccWEXf f3YzzXTlOVQvEuqzCFHbsZG rNWYqqbJpbVbdvM5oRnYhVp MyNFxwbGFpblxmMVxmczIwX IginahyWJRxPCakQ6oaWqWe SPCvnBjsZBgjk0ZnCWOzRKL rFvKeZIAqXVVhy7ojIS46KW xwbGFpblxmMFxmczIwXGxhb otwSXZuCJntA3tfGbRlJUZb jJcpUJfab4RxUSExALQkCqZ ccGFyfQ== MICROSCOPIC f6zmsUXyFVLonMV1BnEiCUU DESCRIPTION (test code pz3bod7PgdIQdlDJjPWnhwN = 3371) NvdqAxmf74cBX2mN19DV8cS BZsJoS0RLJxkoM8Puq7WCCy ICGjcTMxQ027i3qew0jgsiN igXL8qLqrEVDxfvigCwQ6MJ omGMSmivesPGu0GZgbCCDkb JQ4LUJviTRfB8CoQJLlUF3k eid3JRR4AObtBLSdXtP1DRW poCJkPBXopMnxXFxxq345TB O0WxHzTHLunnOahEjcpU1hH fPxQHAVKJWkx5IqKREdGAQl cn0= SPECIAL STUDIES (test q6ghiCAkYPBnsOU6HjUrUBK code = 3376) bn1bdi6VyoAOnzXMwVDohjZ AwouJwxw74mWD8sX04ZL4sQ HXwRlY7GCOktzK3Rts3UZGb ELFdrHWgV833WEKdPBZafCc zepn7nX20XNTonH7ykGXaDH kwflGzYWgzzdHidfEkTac2P BL2oJxfOPEdwqsbTvJ2FVwp NXGvmzdpWKg2HDynUGVejPJ 0FDQtzLEjA7TyBQQoQK3ccj f0FSH9XKfgVZHwMbV8UHGwh UGfWQEudLjrKPoyp349RPG4 RgWeHCWwsqKzdYrbjZ2nFkW cZnMyMlxjZjEgVGhlIGludG AbzVIbcNW7uX8fVB5qZMDei LCjZ6IuGLSdspJokAMgAHQ0 lFQbkVJmTA7gBUhkqJAmp7h lh4CiC7gmdCctjDQ1EJ0xME XoQUXuXIoha5KlsS1gBebtB QQsB6IpERMOQ1TQIXRiEGDB Rn2WNlHIQoApSjTELn2dSKr NUywgQUZCXHBhclxwYXJkXG QjAWOOy725bj5zWLUttYUja sVRbBHesG8lCYrfPRyxMPex uFAfAHzul4hsDPCal6n5kBG yNTJhxqAsp5njJXbahmCoDX HkaKYcyBSdKNQcd60cBRctj GbiuGcbJNOge3HygUiri6Dz IrJzJBkau5VtP13bfFFqpDF joGieTSWumgLqVSQpe96rl1 qdCAYyVdA9mXTgnTF9oWIuo NMxr7YrsHsvVERhf6odKQGz fj2jnanwpLTss5QmrD6pjnh bEDfoaRXpsePxOMMfq5w3zO EzEWHaKRPkMGmejLm2SXRoz 144am9tilK5kDPgXRT6LRll YWJsZSBhcmUgZXZhbHVhdGV uUOWhwyKzWMPlqrUBuY41lz 6tmIN3l7GbIO7hb4IhyYA4D WNobmljYWwgdGVzdGluZyB3 FMAdvATbZi5czUFrCIL1ENL voIgpldBDrH5aMDUdMXs9WY EiQwWqJmtviwQMHSWgI4KjL FErjkBkzyuaJIG2rL7gh5b5 MDbnTs1jNMDtyduzr8orddC urBTuy5SsYYFmaeCix9MoSP DjkiNmsCHcFOShzdPnpx5xl uNkBNKiBCVrU6EmayatkBhs vdI6EFXxGNQbiIZanAzgNOG cXBl5YTthsoSzi2DdQsOuel CtxAZouxYnAR5vOQYieMEcv bDiRWK1JBVdJGOIAoZjTBEa h7ShEO1qLQWlpOhyOCWgiC0 je8WfLLOrw13bVUXyVEVWCD EgaGFzIGRldGVybWluZWQgd JceoYThiSTzMWAmMKNpJI7v OUIxjfMyrRKky3ZkuIAzokD hc9BhlkKwIXZpZET3OlPQhT NomYZufZEduuB7r6AmIWPeb yNcqPitvIJjwRZcmAVup2Cs wu4bFBStr5mitAvjQK8qkIT iZSByZWdhcmRlZCBhcyBpbn Jdr9YeR8Z7wZ6uVEpwd4NvE c5nCTCyj6SqkjUdCoOWdVao VNrfHa7pMZQsasssxIDsC2R ydGlmaWVkIHVuZGVyIHRoZS HKzMhycFGywQVWPVHxsyX4i 2H1OElabCGexcPjSO67EMJa ES9nyOOmrRSiu0QpMJg3MGT sV7oQBD81CVaoKLAzkAVihO zweGDoJKSiRAYnwyHwgb1dc RdzaWShw86kzTP2mEV8GKIr qD4hO3YsQBllHl0dTCEbtxt dpBOemIpkCe0mrDBzdG== Gross assessment was [facility] performed at ([facility], code = 2777) Department of Pathology, [address] [place] [address]2017, Technical component [facility] was performed at ([facility], code = 2778) Department of Pathology, [address] [place] [address] [id number], Professional component [facility] was performed at ([facility], code = 2779) Department of Pathology, [address] [place] [id number], [facility] [id number] 15:29:08 Test Item Value Reference Range Interpretation Comments Case Report (test code Surgical Pathology = 104) Report Case: [id number] Authorizing Provider: Logan Russo MD Collected: 06/18/2021 11:41 AM Ordering Location: [facility] Received: 06/19/2021 03:44 PM PERIOPERATIVE SERVICES Pathologist: Tom Paige MD Specimen: Mass, MITRAL VALVE MASS- for MICROBIOLOGY then pls send to Pathology DIAGNOSIS (test code = [id number] 1100) uZzEwMzNcZnRuYmpcdWMxIH tccnRmMVxlcGljOTYwMVxhb pUsGCEviOEdD4HheeyfQTbm QU4bGT9zfHbleDJrwWAwEPG kTdWrz4owd285qRCti5whMT BHvtdzeAe3vUjfI53ia5M1J zutF28khGWvJFV9AZTiJVSz iDJbUDPpUCR2XFAzhOEnS0e mQPYmVU0kqvrvHDkdTPkyIE YbmRG5PCKoqSBmU8RxNCIcI GtpAOGhiij9UyAfEj3ptCHi eTcyMFxwYXJkXHBsYWluXGZ iUoXqPN1nOMQSQrSrWW7DHA JBTCBWQUxWRSwgREVCUklER A1TVdZdBM1QDPDAJGXUQjtc cGFyIEZJQlJJTiwgQUNVVEU hRF6TXINQZRHNS3VQHQJTU1 AOP0AHPJMDXbPjO5HJA3cAP HBTBSpXAb0brOMgRFNIFHDQ KMulE6ZREO9XKVHPJfCQTmL TI8VRH1VLVD2OY4NHPONNBn HYEK0CFX1MPWRJRSCGXqODK UOJHcMTI8tGP7ysYPufISDv E17ZDbORDPLPO01sY1bUEWM CRTLKB6IAR7aKO0oMNFolR5 UYHRyCSjSZMmFNAXARQT2KZ xBKMX5aCOBqks74NXQ2UfXf v3S2WSS8PIShTMIdn8qqBRE mbGFuZzEwMzNcZnRuYmpcdW WnWDLuEvKqx5zeh577qKEti 1xpMIJtErL4qBFbHTCskLCx B514KPOhNZlqf6gyy1KmLVW clBAef6Y3WECGhieptWe8rO pxO22lx8Y6OuvoH3ouZDNpO EDeE0NeQI4eCMAmHzb5GGQ6 BPB3EDHuCOWeV5VoEE2nXFP nlRCnJOy1i1nfiYlmUFMgCT L7g7ktCOeoeiWqSV4eut7mh Cj3q5zqzkGfTAWpHVVwwRCP OJSqL7PrcVeiQc7ayNp8vHi bUiwvOLH7Fhw0ZL7xiv03kx a6vSysRMYpyhpuTnV9NZzvA JWpzzhsTUi2FEtoNPBmbUU1 IXMtoIDwY8CmDKLySO1ibts 4YPD1WHhbTHBoIwB4YDRlfO WdUSTrzQfrNFddy488SPA3Q eUiSU0eR0Nmi2G6cK5vvTBu KCMovIBjCmCsAAKbuv7zgFJ tLNtel9IeQGV7pcK6vTHrpI PhEMXjJtE7YMvzIA0qox55H AInSWS2px2wzXRfzRalrcLc sCEwEBvfA6PfCZToa969URK eG2HiPRSar1P7eeZnNaDiLC UhnRH4kmP1EBVvMN4nbgaww 4ffUMonGMwrVDUjyfI9igU9 IYGueQIhE2MieU1qWFFyJG6 rmkhzb3cpYLL6MNmjHEHiCQ N1SgCwUEVmk3Robcz0AbBhi 5QvmHLqSZfwL94cr881YMRj itPqL1ceuKCzgoluzERpbtf uTLkhwvE9PQRcSTvlsggpCM XpGTjuL5nkRtUcROSsyBtnV Tduu2LeXQVbRJQhYkSxoLBx JULmImi6QXJtkTBoUSYmHsU yX4htdasjLsWGKNNfv8lqW0 bupFUEnVDvO7QcKLnhqnRyQ AusXLxnAsAdKRGaVD33KLT5 YETdgj13 CPT Code(s) (test code r7bsbEVpTWEecXQ9SlAaIXI = 3357) ka6eqh6RssUBaiPOhZDnvtA ByhsNusv90qMX3eG98DP3xZ PBcEiP1GRDfnlA4Ygn6VJSh XAWoxWWcJ412l3qfr9odvxA jzDB8pNvvKWBvpcqiLfK5EV lqETQhcmupFRf8YXlbQGQys UP2RXZddMVdC1OeBHMcZN4s jdm5XSG8YKshTVOeMrI3ICJ fmNOlHWFwjFmuACrhk999NZ C0GeAdYZXyrtZdyZenpB3aS jWqTMF2COSsRPrtMXhwHUKS G4wlRLN7 CLINICAL HISTORY (test a6omaMXnDBEhfEA2NiTkOSU code = 3356) yh3ise6TciOHbiPQjAAlchO WdcfLgyd48pQF8hK12TN2oT YAvOzT5TWNwutH9Ytk9JGEi HCOtsPKdX691q8jwb3qobcX afKO7nWyeZMXkbbygWaL7VT efENFsztwlLZq8LLikZHCxz VY6IGSjyXIoD9MeBMZwFF4n crh6BZH8LNadGPCpUgH9JIL rwZCePUDhyZueRNhbo634JM U5AmGfZTFnziVkuAeifL1iP pWqZTHOdnSaT5XhMGh6wBRb cGFyfQ== SPECIMEN SOURCE (test u9pstSNtKIZayDD2DqFlZQC code = 3377) do6fxf4ZdkMYlxZNwIPnegR IhtoPtyt86wJH0yH93EV4hS AYtLeE5KDQzaaB6Tdw9ACKm LRJvpPWfJ376k7djy8spwjJ tjVZ9eEecVBCydncmAwT1VO jrMCUusnbgYHy3PKeeERDcn BO5TPYicRKuU0ZsRNVsVL6i iqp2DDB2AReqMQToMuA3YKC qiLApNPDgwJwyNMela385RN A6RdCdNEDcxiQmoJffoA5hS nMyMCBNaXRyYWwgdmFsdmVc cGFyfQ== GROSS DESCRIPTION p6lpqCIkFRLmvJGrUuRhLUS (test code = 3366) zFNVzz5icVGLchFWqNzWzOe NcZnRuYmpcdWMxXGRlZmYwe 4ymj960tQUed4onENYzUrU9 eCNpKZQesPIuG747LSBqHUh sv7kkh5HxPQNhpENdg7G7FM DBcipqnEd6fOfoR03sx7N7N uyyC3toGPAlXXSiP9YrYX9e GENrRpn2YLK6NCG8RCAwGEB eD8QkKO3tEQLaiDDzXOx2m6 jusWlaWRSpZCK6n8snMXcna oNjKZ8xqn9yvLd7s7isajIp QHZnBRSxaOZOJOGzK5ZgeQs rKk4fwZa0tZjvNbtuRYP9Eq n4KA8jbd47rep0nZacRIIzi fqzBnB3HDltBJKdivlpVYs2 MFxtYXJnbDcyMFxtYXJncjc yMFxtYXJndDcyMFxtYXJnYj hrSBmpNLWqZGN1JHjav160V EO8KQlyy6xqm0dffYPaOhl7 AKBaZkGgSrqsMGzks3Foz8l mKSYxkh1zTYG2wUNoxBrsq0 Y8kLRuKGItoKUjywQkQWYvH bE2QPpjBY0yvs92STOuGIJ1 ie6umZCgdFmipfGbvOIjMUz cQ3EuJJLux713WUJfX1GoJX Bzb7G5xcLrVdXdXQUdvXK8a zU3LOTpIIx2wCKcbuC3vaIi dZJeS0fecN87LvDhbEGhA5U njT25QiQxtBLxH7WokL24Wc CxhZCxA6NawX23IuRfvNPwR ENmiFTjSy6zfCYmgXLmg3Ak bFRyKZdhU41bb223HHLmcdY rH3cadNMhgajbfYYusmoyLM tvnyZ7YVChCNMbURixDNTuO GZzMjBcbGFuZzEwMzNcaGlj xGwwOWfxQwDcVCUuGXobH3w cZjBcZnMyMCBBLiAgUmVjZW h8JOCacG4uWj3ozSWuwW0kv QWeEQtgBKU2tKClKQNmIRBz UAPzNJ18T2ZrhV3lb3AcVOW uq47rGZ4mBMFqcLIsGYuxrb FsdmUgbWFzcyIgaXMgYSAxL jDjI73blK1exDXpB9SlXVL7 IDAuMyBjbSBpbiBkaWFtZXR xgmC8QS7rqEbdtfB2cDNgzV WfJZwnnZYpEStiHHT6Or9vv YYiMYQojdJ3n8VzORysKNHj i0DxkMZpNJJuTzecFNMjuRL yTQDulwSzfFkvtA5wOaAbPg MyNFxwbGFpblxmMVxmczIwX DysmxmkYZTrCBxkA1unCyMv PTGarJtmMNtlu0OfOKMxXUY bDeXbWCYcDDJsd0emFF28CZ xwbGFpblxmMFxmczIwXGxhb xfxIFBuKTbnH6tbKyAmVGUw oGtnRQngd1CmKIOlVZYgIyV ccGFyfQ== MICROSCOPIC j5dmzLBvVZPsnPD8VxXaNME DESCRIPTION (test code gw8sul9FcvUXloUFtHDkoqH = 3371) TeddCwvh15tQZ1zX44YX6hS ZJdWrP1UNNpwxN3Ocf9AHEj FMTfxBBpP788i4mpy9bdzvS wsKS3sEuzWKSpnomxEqP1YU buHHXqhmkeAEc1CSskYLPdr TU4XKKiwMMcM5AoOZNzGO3m llr9QJA3IKbnTBOkBrT4KOO wpEYsPMXjmRyaSAvhy787XN V2RoHqDJUagoBaeAjxoR0nW pWmQUGTOWIhd8LhALYjIKLf cn0= SPECIAL STUDIES (test y7xnkMYzPCUnyDJ6LcLvLGX code = 3376) gv5sxv8KgqSEsiPZwFYgesD VdqdQlju46cTG9cD47TD1qH RWfQaA1LNSvwmV9Wfz6TOVf ZQBosCRaK161BJFhTMOhyKg fjdt7xG15LNOimR3znSVuXU vrksMeOPintzVwcrZxUpk3S TG9zCuzOOSevgdqNpU2RXuk ALTsdcrvVJv0NHgxIZTfeLW 9LTDpzJQnI4PpUQNjKH2afp n5DVD9CJyuTWJhFlF8EYOyz PEiPLKqjGivQGzop363GMY7 UrOyZDNwijRrfHikkH2fXeX cZnMyMlxjZjEgVGhlIGludG LqlSUpxOB8bE4uDY0yTYRno HKfG5IrHNOzgbNcwICzTAP7 dXThpEOnTH8oPRdhoNBqx0p cs0QzS4wwlYpegKL0RY1zHR FxERHcRVfnh0UxlM7dCjblP FSrH1FeAXMGD3YRPDLbPDJK Zg9YTnTARzMvOfCCJt2gRNx NUywgQUZCXHBhclxwYXJkXG TjVFIWm850uk7rRMUaxTJlr eKZuFLwzK3vSHcfTUwkYEok aADgXLqsi7tgKNUlb8g2xRM aLRMobzTfc0qyKNqvruEeFP ItqJCxxGOuMGYsp71gWWuar RrgeSzxYZRqh7TweHjdk5Xp DaXrRYqfz0RuC98koZIrdWA ooVjwBRIdvmDgQHKhw86ep6 tePLHzTxQ6tDKzmNN3tTKau MIkz5NhaGsdIMEch5owRWGe pt4lntssxHChn0UdzF7krvi oVPjwePJdiuDpJKWch2y1dJ EhDEMxUKNpUEismHj7KRIqu 575za3raaL7lLQuOEW8QLns YWJsZSBhcmUgZXZhbHVhdGV fPZAsizOzUASudzRMjS37qq 2usXQ0q2UnAN4ji7JpwRC8J WNobmljYWwgdGVzdGluZyB3 MDVnfRTtTd7zhNFiKJJ3GBT stMjtnfNCfT1rUIYvZHn0WL NhXxSvFwthgtMFUBWeP5MsF CRllbEalibzNFR6kM9dk5c8 HSusAx3gZUTrslzfm7tsvmD iqPSui1KrDMSkanUei8MzLY BhfkPonUTtILQuerIwhk9jm oHjXOVwVXJvE0JruhdhlPbl kxB9LTJeVRFyqJTcaKaiXDJ dQPs6EIfuagXdi4ZdSpNocp NbvTNcbzJwNW0jZKDrpUYie gKqISV8FEMgPNPAMePdWORx d5RiVC9uPRImgChkESLyeB4 dr4KfMFUpt66mHDLyXRECIZ EgaGFzIGRldGVybWluZWQgd NrwbSTsgTReITWrICUjJU6t WJMynwPksPTgt6BplPSljxV gt7OfcrGbOMAjUFJ2UfTQdW LvyPUyoXJisdW8k4UqLDRzx mFptYwczGVdiRVwqCUvn5Dh rq2pIMCks6ovfVpbLX1zcOU iZSByZWdhcmRlZCBhcyBpbn Jxo1ItX2Y8zE7bYPedo8AmZ o5wHLKot2PmfwZdKiHGjEty TIvyNx6xNEPhoyqffEJkS8F ydGlmaWVkIHVuZGVyIHRoZS UZyXlfuEHwgUTMWWQjhsG8g 8V1SWqqsXKllyByQX71JHXr AL5mmLWfaHEdz3HrCGa4MEB gO1wPTD50ZRopSOGfzXTmzN wtcEMuRCZbNDVbfgQhng3sd EkbbHSxj65ksJE8wSB8MKZe hY4mP6AoHElwGz4gQKNtwuv vvKVrwGfpVs7hnQUscO== Gross assessment was [facility] performed at ([facility], code = 2777) Department of Pathology, [address] [place] [id number], Technical component [facility] was performed at ([facility], code = 2778) Department of Pathology, [address] [place] [phone], Professional component [facility] was performed at ([facility], code = 2779) Department of Pathology, [address] [place] [address], [facility] [id number] 15:29:08 Test Item Value Reference Range Interpretation Comments Case Report (test code Surgical Pathology = 104) Report Case: [id number] Authorizing Provider: Logan Russo MD Collected: 06/18/2021 11:41 AM Ordering Location: [facility] Received: 06/19/2021 03:44 PM PERIOPERATIVE SERVICES Pathologist: Tom Paige MD Specimen: Mass, MITRAL VALVE MASS- for MICROBIOLOGY then pls send to Pathology DIAGNOSIS (test code = [id number] 3220) uZzEwMzNcZnRuYmpcdWMxIH tccnRmMVxlcGljOTYwMVxhb cPiIENdnWNeC3BwpxonAPpc XF3lVZ6pfGggfYQefLSgWCR hNxTtx8uhl108eKJut3xqRK QCubwyuCj4yQtbR04zz3V4M zpkT59epMEyCQK3RCDdGITk fBWsJCQqDCW8FLHgsFYyT8g hXQZhYM5xbuvpQYteUUucTL JljIM5YOCdkIHpW0PpUZUgO WleZMSimlc7QfAdMp6icKWj eTcyMFxwYXJkXHBsYWluXGZ bRyEvXI6tXHLIIuIsVU8ISK JBTCBWQUxWRSwgREVCUklER Y3QYoWkEU2YCXRUJHPRIryw cGFyIEZJQlJJTiwgQUNVVEU gGI4UPAIRKMPQK0SHHQGOQ8 LYZ0TRIKKUQpXzU7ZYB5lTK TFWJUdAUk0buGHuIJSEMRVC CUtdN8DXPB1DABHOWeRLRpY PL2ZFV2IHZX6ZW7EXWEIFAh MXEJ1SST7GIELHIFYOJxYKT XXMSdCWO3eRW5foJAbsEFQt F29GIzIFTGJJR34tC9nIIFO SUZPAZ3TPN1kHT8sYRCsaY4 DUMOpXHtBRGsLBRIHQPV2JJ wESLX8dUZOtal95LKE5WnCz g2E9EIS9SEDhKRHsj3yiJJH mbGFuZzEwMzNcZnRuYmpcdW OsEZEkHaMnr6wdh992vJAnz 0exGQMpRtY6tBSuZUXkqBCf X794CZAnTTwec1obv9LfARD ezNOzs6O6AOXGzgohlJz3wG evU93he7F1LuakN5waSPJrE GKmA1UbLM7nLULbJys2RAF3 ION1JUHtNPGuT6CzHZ9aIHV rmBLrSJx8x7dkqNotQFYtYI Z7u2phJFpcnbBlLK8pfn2zj My4f7pldnKnDHHuROJfwQOB TXGuK6BnmXxoAm6zrEw5vCk gLtpaUSE0Ohb9RI5dlz36yv z8dOeyAJOpolrqErW6BFlnY TVcsqwfFQr3HUucWGPltPG3 AKBafEDkP2ZzDESgML5fkcb 8NJO9ZXmnGOXtIcR4HYVwkO DaBYEaoMvdFRfis385XSS5C gPmLV0hW0Los1M3nE5hyYAw PMMeiETyVhBlGZEqrb8odXO lDDuyg5FpLKM7ueD3oYTvaE SwVORjXvL9UDdiYX5pjc76K QEoYVK3xb4uoHDvoRznkoAf sGTrTBgmG2BmJEWhm400BGH yP1UvQLRrk6E6ptQlGlZeLO BxgXI0kwI8WQLnXX4qukkrm 9kgMVisFMvzCRWxmpN1mbU3 EJMczJJoX6OjtD6jJFUpAR5 hfcdwa9xsHDV6DBsrCJHbUD D0ZkExZBAfe8Lisro5UiLkw 4EvgYFrRSceZ52ru127RMYs oqJpQ2gdzQOqufgkmVUmlpg xCKgaqeA2HSQnEYqgfthmGZ GaSPqzY2kdYbCtLWRzlAhlK Jwfy1DxNTKbXCKwLhNwaQJr WSOtQft3JUTnfLNoIQRrCzY aA3iucqcyYfVWFRRjc3oiN6 ymaJGXpOUuZ0BsYBqwwoXsU NbaAUonLuZkPHTbGU51HJY0 CJQlcj81 CPT Code(s) (test code c4tvfCLmVSWlgCU7DfFjGPY = 3357) il8tpq0NukPLaeKTbZDkftG YnakMske74mCS6xA77YK4tP GPtVhP8LYJuetD6Reg6FTYw QYUyoALlF090a2xip6htalU beAI0lRwvZVPgtygmCqO5WV jxGWKzhrqyEQl6ARclPRJba JX5NXMmvMWeG3OfDUCyTD4x hmk4SIP5QOtqBTLsEwS1DQH uaYKsIARusFduGPudj419TW C6TiKgQPBsduEwdQheoB5cE kGfNFB7GYEqUAvjRUtgWCZB P5hiJYT7 CLINICAL HISTORY (test q8zhvZXaOVXqxVN2NyYpMIB code = 3356) eu9nnn8HhpPKsbXVvUCysoR JijwZwdw34jKB8tJ24YG4tO NZoKfV3HJNxhoV4Awu1JQKj IBWgnGGxX879f9uaf6ndpjY itZW7eJgdZWYptxfpZyY7JB vwAOAldqgsHCe0IAqxYZZcd WM6SCKdaJTrH3TvMMFiAF8u mvi8XHH9KNxeINNdKbO6KAM ohYRyDFGsjSjyWXkjd709DA H9IaNgNSBuvrEacSbmyJ6lY nUtCQWDpxQtZ8ZaYIh3oWDa cGFyfQ== SPECIMEN SOURCE (test b6fbzLToEAAppNS4DyZqDYT code = 3377) dh3mnt4ZwuKYauRJcYFtyhI VljxJzit91hYU3cG40QD7qV QMmHyQ6VMNccjQ2Bdp4PRYv KZZvoIMsN119w1cks9ymzzR nhKO5eQmeFKUgfyqpQdL1WS hbCFIwqurcQKw6HNsfZDDjy EE9CWHtcTFkO0KdHMDtLK0q gup8FAY8DOecVUOpEvN8ZPF brWUzBEFopDsiKOwzv242DB Y5DrZeRCRvzvBlfVajtO3cR nMyMCBNaXRyYWwgdmFsdmVc cGFyfQ== GROSS DESCRIPTION k9yybUUqLUCyhKSlRuYsYWX (test code = 3366) hWHSmi8cqLYAfvPChAzEmRq NcZnRuYmpcdWMxXGRlZmYwe 7agu251fSPli3exURPjRcV1 kGMaUVSibMQxW994DUZpFWv mg8yuf8YlKMDyuSLof6Q0PY LEwslbpWd4fZoxA92uz9G7P dqsF4zmOBQzXCFgM7HgOT2p ZEThOuq6VPZ9DDK8ZXVsLYH qD0SqMI8sPSIwfIJiQRr3a0 khmEbrKRWxCOK4x9vxRMomg aPyHY5gzq2rbJe7d5ctvlMj QHIfJTKnlYHPXRMvJ0AyfDo vSv7qfSg9hSqyEfypVPM3Rx f9FE0ufh61mev2yOmrCBDim xqfDmP8NDinCKGhzmllNLo9 MFxtYXJnbDcyMFxtYXJncjc yMFxtYXJndDcyMFxtYXJnYj cxTXnfBVRiFAG1WKfgz117R XR6DFchw1ldp9apuGAcKeu0 DNXbZaFwTxafNUent8Umz7d dLSJdyd4tYAX2hQBtlHslr4 W3aDHzOTNslRHtskWwLGRdB eG5KDfiFQ1yqd42DYVcDIE1 ok8trDJchJhpdqShkQRcYTw fQ5QqMWHuf754NJPoC3LxYI Ath8D4lxOyScLmLWQviVW0l pK3DCWeONs9lFEetsF3alWz bZMjZ9jbwC42NlRbzZTyT7X pyC98GbNqxTOkG3LatJ87Kx ObnODgJ8IeaF36ZoNyfIRdM FOmcEYqRi5skVTbsAFhu8Em qMEsROtxM60kx981WRWaeeX lS0jwkIDdsvhouSRlylmfPK jhpgG0WNSjANKxKCyzKPYsM GZzMjBcbGFuZzEwMzNcaGlj aXtcLEutPuXmVJWeFLmkU4c cZjBcZnMyMCBBLiAgUmVjZW t3UGXriR5zLa8ziVTfxU7yd RUsGJmnFRS0yEJoVNSgSVPj YFMoCT76A8NehO3cc9TzAUX tf41uCR7wTDIwdITiZMqxso FsdmUgbWFzcyIgaXMgYSAxL hXmC62qcO0fyFAzC0OfOXJ2 IDAuMyBjbSBpbiBkaWFtZXR reqY1ID2yjZstqgI5uVYblB CuXPuqkOQqAJjlFJJ0Fr3xf PGpDUOkfpV3i8JpZEygHJPs p4SgkDVsGJEdEhalCJOwpJS iTMYdrnJlxFkumW9gZoXrSh MyNFxwbGFpblxmMVxmczIwX EzhhjslXBTyLUtlU6rxSrNy QWMktHphBLyws6CvMMSwNBD bEhMgAHSlSXFvu1nrFG52AG xwbGFpblxmMFxmczIwXGxhb nmkITAtYGghA8fbDfKlCPCt jFpnGFptc6RcCSMoQVIiCvA ccGFyfQ== MICROSCOPIC q5hryKPyXNXhhBX0OgJpOWZ DESCRIPTION (test code xe6tjk9HihXBgpKUyADecdR = 3371) YsdaHxdj41sNN2qX38OQ0pS LBaKxU0BFVuddX7Arl1WBKf TJUuiCQdO123b1lxz3yxwjF wpNB5zHjxCPOksugsZxT3MB rnMXGgyyqmREj3NFzxFVLbg JS4PCXlfBPfZ7MmIWTxCV7x lgn3LGW3BZmfMVQgRwK1UPD heXRxYRDyqDgnLYcba407OQ L9WuLcQPYqfyMnzMdheW6mH fCwZGZAKPXsu5NbGGUcNWNr cn0= SPECIAL STUDIES (test p7ifuFWeCFSvqQV1HuFaQSE code = 3378) yq0ggf5BvaOTdnBZyYKtmzO VpuxEqvq28yZS2lW63WV8yB EJpRkH8VHRayjG0Ddk4JCJw RAOwmVTyR181ACTvEJAmfUh hafp8sQ60VJAfhP2itCQeLV wsugXyDAscxyTgwsCwTtr1P HC7pFokVTBctyqjLcU4BHse GXAtwtrnJZi8BJyfFNIvnKI 5FGArlUDhP9YfBCSjSF9bqc e3TTN6BCbaRKJlIxF6XMPwy WHwWOTkxNnhVZmbm551KNE4 ZvGdWDWtvlNygRckgU7eKvI cZnMyMlxjZjEgVGhlIGludG LxjOIhpIG7hG1fZU5fWJBzq NHgT7FwWZSyrpVrbUJcRNW3 zASspKHuMY2uODpwfDOyc3h ff5BmW6ckoSlmzZY7AP5zST RgIKTaHWexn6JssH1gHginQ HWjF7EwJHSJE7GSDDJbAYFL Ke6FSkPQWfWgBtYUMi8aUYv NUywgQUZCXHBhclxwYXJkXG BaZHKMp633qv7zPLDzfSGuk fORxPUsdV5hMButOXqfCPba wDZwFOqem2xxOPBab5b8nLO pGFXmseKag1dpAFwgjgGfGP IgoOZgbZXiNNCxk55dKTdkf JgppThiUXFkv6LcyWuep1Py FvBrUJxkv3EfJ06juANzkZQ xyUnmTCEnhiXbJYTyt89gq4 paBMPxTiQ4iOZdzVK9aEAna MMby2BjjWgwAGAeu2feMTVl pm2cqchlzREih6IboH3rdyz bCUituLHdmcIdHSZnl6e6xB WtDAZdOGIqVXikvMg1YETlw 785gt1xadI0tNNkVPH2MCun YWJsZSBhcmUgZXZhbHVhdGV xEKGsnrVbELNkvjKJvY73ir 8ezMR7n3SiNV5ar3OuuDA1S WNobmljYWwgdGVzdGluZyB3 ZSJdoCJkKd6sbKYkSSY0ZPZ gbOwszsHRoH2uZNGiJGc0UT KkGcDpYjdqrbOZMJFgN5JfZ FTdlxTnjwitRIJ8pC0bj2z7 HJqhHi6kECLozvcaf4bxunW gqRZol6QdFWBmgtQzz2FjTX EecyYfyWOhGCHindQtxl3fk tPgSNCyCXRbC4KzckiubVyo viA6FMYwGROlfKXxuIbsVXM gLCy7CXiejzKwq9LyEyNlqp WxsEFlbuKfRR9hFELcjSMua vJnPBS1KKMoGOYAQlUnOXCu a9JrRG9fDFTfsPmbOOYgbA4 ie2WlYGVqq98bRYBjACVRIM EgaGFzIGRldGVybWluZWQgd IthvKDgiFMbEYKnOUYaXK8r VNRfojJvzJPei3WccDDwksZ xc6WnvbVsNLQmSTR9EjJSiB IsuQJheMGvnfC0b8VlAECjk cFcqDankRPurODqtWHnn2Xm yi5zQYNus5poiMevCV5mpZA iZSByZWdhcmRlZCBhcyBpbn Gft1AeT5T3rI8yWXwrz1DiU a0tHLSce1OjanDiByNZpKuc LQsoQe1mCOViyggnsYYcX3B ydGlmaWVkIHVuZGVyIHRoZS DQbWuqqEEhwNBZFXYgnrP6e 5M0NIimaVDtwbShVO14TFVp RA6dyGQagEYuh4QyABu8EKE uP6hPZK20ZZduKDFjjPGpuR bpvBZaVIFqRPQvivXrvf9uk QvdoJIum78wcOW2uHY8HOZx jD0kR6HmAZtwNw3gRYRqdux zbGIszFffLt2xrETsmK== Gross assessment was [facility] performed at ([facility], code = 2777) Department of Pathology, [address] [place] [address], Technical component [facility] was performed at ([facility], code = 2778) Department of Pathology, [address] [place] [id number], Professional component [facility] was performed at ([facility], code = 2779) Department of Pathology, [address] [place] [address], [facility] [id number] 15:29:08 Test Item Value Reference Range Interpretation Comments Case Report (test code Surgical Pathology = 104) Report Case: [id number] Authorizing Provider: Logan Russo MD Collected: 06/18/2021 11:41 AM Ordering Location: [facility] Received: 06/19/2021 03:44 PM PERIOPERATIVE SERVICES Pathologist: Tom Paige MD Specimen: Mass, MITRAL VALVE MASS- for MICROBIOLOGY then pls send to Pathology DIAGNOSIS (test code = [id number] 3220) uZzEwMzNcZnRuYmpcdWMxIH tccnRmMVxlcGljOTYwMVxhb uAzHITyqZAeB8HsfxgrYSuk OM4hRO9gxFxcvJLhaWRlOUL eGsWlu9czx303jKMqv6ymHM EKxzgxgCb7lDkvI66yj1K4K vkcC44vtFGsYZK8VBXbSORa gTFbDQBbELV4RNHysRWhB8m zSFYdVT4exsbnUQhcAOgcJT CkhTM6AHXjuCAeZ3VyXYZfC UnlLZJrdvc6QrXqYg4haPBu eTcyMFxwYXJkXHBsYWluXGZ jSlPmOJ3pYHKPLnTbAB6AUZ JBTCBWQUxWRSwgREVCUklER O4CRiGzHE1QWAOAJMEJQqkz cGFyIEZJQlJJTiwgQUNVVEU lTF1JBZHIIYJDT2IRZCBFM8 KIJ4TZYNSLHgHpL6VEO3mDR HCSIHrKQk3scBWgYZOUCOQK ZEokE6NTSM4TMUJHPxFGMnO YO8XHO5QCJS5MD1ETKYWJKj PQYD2RFS8THHYMYRCAQfBUG GAMDxETU8sDP0alXLtvDWGj K64RBdHYXQATI05eL8oLKPA UPVEOW2WLW2sRX3jSSIwvO4 JDVIpDUdHRDqYUMRWFIW4PN rQPQF9nBUTuoc23YZE7AtRd j8C1RGV1OJWbIOGtl6krSLR mbGFuZzEwMzNcZnRuYmpcdW NaQBGfNwWhc9rvw806oWQxx 2icIHBcYaN7rYWtMBCsqEIi G474CDOcDUmkr7uyl2EdJJL foKImp7Z1SZNXerrzeXb8rA ilU53uo3K5RultW3xuFHSnQ ODqC1HaPA1jFBYtWgs1DSB1 RIU0OGEnLDLqA9HbOP4jSLM tvXPqEVw4x1fcsEdaBCIeJB G8m0dlTJrotuDcRS7buo0gw Cm7r2yvutNqVKHwRKYxtASB YWEsD9TqfAjtZw7vjPx8wRv jPedzKHK5Jqq3RU6hec34uy y9xRkwLYPgdrexGpS7PYhhA DVqbrusTQb7KUehXAXvaCG5 DOZegCLoC7LnRGTnWB7xoth 2VLJ4KZopQMQdIaP9RNTwbC MwMQVzgMenUYkfo189OFU5Z wHcXP7iM0Cfi6E3eW3qoSFc ASIqzIGzFhKfTVLjcr0heSK yZPorr7RfVJC1zzW6jPQlzT GoJWMpXfH2DBhjSB9qqq27V WLjEMA9xw2dvTHjtBpvdxZj lUEiNDohE9IhMVHtu066JRI fY7KeXRYzc1W2nsJmLvVsGM KlyJR8rnX9DEKeOA8qgvhdn 6qcIZilSMvyYVDywiZ4lyN5 BJVfpMJxI1TvqO9pEXJkAB7 azrofl5zgEFU1FEluBWDdRY Y3IlDjPRKhl8Ndtev6NtCvw 9TrgRRxYAyiX91ca593TTEv hvYaV7lmgQSsgvuyaHRlmud xNDpoiuP9ABFlLWsgxuvqAP DxYHklR6yaBoPrXLBweLreP Ngcy8HaKJLxWGPiErLdhIWj ZAHaNdm4PUAzjHAtDOEqLzF qH6lxeozwRgJTSLLex3zgS6 jqvUBRlSCgS9WfPAxujgPjG FsaXSqmAaKeBPFrCL06MKD4 CDQahx83 CPT Code(s) (test code z2fwrGRkVSKzvYH6DgKrMVR = 335) km8nfu4QofNFndFHtQCalsM KbjfRecm71tAJ8eC54VS1pK UGyNjG3XIMjlsU7Ktr0ZHZt EUMjnZCfZ517e8okg6zmcaZ fqJN3mZpoHWLzxysbZqT6DP jxUUFatfrcKXw2CEbsGUYxx WG5QBRvoVLlJ8IgVLAxMD2f wuq1VGI0XGfqRIFrNtS8AFH hxIRzKKPbnQylQSuab743VD Y9SmKtKNHwzxVdrFiegW2qF dKaZRN5NFKnIQbyKWivFORV F7cnPFO0 CLINICAL HISTORY (test y0ladDLcRMItrUU9UuXjKZD code = 3356) ox2vok7XqnDNfeOJmOTzxvP NaekGenh24vDS4kK88MA2cF BGgElW7PRTfpqO5Tpz9JZJw MUGtsDPbQ011n9mjn3mbvaA ncTK6bAteHQLtoybzLhC8EN vhJCSijnkeNKp5TTfzYAUmw ZJ7MYSutUZfI1LiFFIpJB9f mjr1UEU5TVbwOLDjAeQ7BXR naGRzFZFkoVjgMTilw376DO F3ZeNmIEBkomJrdXzlqI7lD mZhLDYZosApX8NgIIz7lPPb cGFyfQ== SPECIMEN SOURCE (test j5uddTSbGNBbeNQ2BgNjDRC code = 3377) sk6rof4JhyBEjcGHzDHflpL LtdkEire16zZL3vC55QT5vI ALqDaK3LWHcwwY1Vbh1MZKf WIXmkVCuN217z6yxx7whjsR twHQ6hKdjFLDcqyniAlS6AN ahLDZamrddZFl1EImqFSAtw XK4OBNwoAKwJ5BwHFDbUO4z tmg8VOF8TLzuFKRaFmT2SFN bkCOnVENeiDytCMdbc709LJ J1RuDbPEIlabJcxDevmR5pA nMyMCBNaXRyYWwgdmFsdmVc cGFyfQ== GROSS DESCRIPTION c8aleSMuIOSytXKjEuFkPRR (test code = 3366) kCLQdv5ddIZRtlMIjUcQbGj NcZnRuYmpcdWMxXGRlZmYwe 8uuw957pQKch1syAUAnHjO9 aCYjDATstLAvA177WDDcGVj gb0pkw1GgAJQlkBDwz8N5UA GYoqdsgQi3aRbtE21ul3G4O paaJ9wkRXSzZFEyZ7HvRD0m TCDfOxj4ASW8HVK7JWXdGHC tX6KmBS8rWMVtjFCiNSt7r5 qwrPpzYVCgGAQ7a6xqKYeev bCxJH5mnq0pyTu4c1apxoYz CXTkJLOupJGUGJNdH2VreKl eTs6irNk6uHxwUnsgBMT9Vb d7HG7aoc25pmd1jUreXJVgr iyfGsH9NAfcPYOgctyiCLa5 MFxtYXJnbDcyMFxtYXJncjc yMFxtYXJndDcyMFxtYXJnYj qjTDvwWRFlVEB7NDxpd750S QZ6IPiop0kio2wbrBJcFjq8 FDRgRqGpJljgIHgoj3Bar1o qUIObae6zYLA9xJMzrJlch2 F0rZPkPWRnuLArttKjEUFfU eG9FIqmFL0ffa12IWYbTQW7 ct4akANtbKjgopJlrTXjMCc eZ5DxYESvm906QZIkE8XdWJ Jrr0F8prByMiFoVSQpzEC2g xB3BFSkZZk8fOAzwpT7fsKc aFRcE6idkQ28MmOkyCUiZ4W enC12XvEypCLiG8FqlC72Yw NprOCjV5QufV05LyPajBZdT JZcaKWfDe0dfMNmeXTma3Hh gNKsPJgaM06bz455EEUzydR nH2gxzAZmjwljoXFylgsiII tpdmP4QOHrJYKpEIgbHXUhL GZzMjBcbGFuZzEwMzNcaGlj sMvrMIppYsRmKWLbGOapS6o cZjBcZnMyMCBBLiAgUmVjZW e4BZZafQ0aYm2cyNOvwA9re CTvNCfhXTK2wXFgCPOhHVGi KPUiGF44N8OnlQ4ad9IkBNN ea36xOD1wFEHmfIRgLAknxi FsdmUgbWFzcyIgaXMgYSAxL eExF97myI4vgENsI3TxRRH9 IDAuMyBjbSBpbiBkaWFtZXR jaaX7LG9mlNjgvjJ8tQElqM YzKMdruYHqVXpyTVR6Lt9ob UKfDMEetjO0q7GuWWngZITo y4BvaVSrOQZnHtcsFCRugGS jEAKjkqHxxBdwyW5aVeFyWv MyNFxwbGFpblxmMVxmczIwX ZmpnhdwPMUdJWpjM7wvSgTo VZHkhDxtJJmuk2KhGQKwVPI hImIvQOFkFIDbt6ifRF18RS xwbGFpblxmMFxmczIwXGxhb vwrLAJqOLspS5amJmXcXRNa mRtfPTtqy6PwTNTrQVPaNlL ccGFyfQ== MICROSCOPIC g0jgsXFqONOwpBK7NvJqSOL DESCRIPTION (test code ht6yjg8UalIEjaZDtFEdrdE = 3371) UwrpSeds13uST0qX02YX3oC NRoDqR8FMSyslV7Gbx5YOBp OIFioTZgP206l5hls7pkpkT omMX1aTxcUTHchruzGgW7YE bnTVVxdlqhBCd2HKfpYMYdq PY2PNYmvVMcA3HqALJvAY2b bhi5UNE2WXvuLFPoRaG3ZFK zrTNjHDPykLdcKRhhh268GA E3ZeFlSPHbhuCwvNlzoX9oJ dPhMQYMISGak0WoPSSsTCRz cn0= SPECIAL STUDIES (test t7zseJEjMDWwiHF2AbRcRBP code = 3376) uk8dbj9LptIPbeGLwXDdjmC SiqxGjhh53vWC2hJ58NS6oX CSeYrL4XVYxgjW3Xsv8HVRj SRIuyYHdY698AAYmRKTvoJf uoyf4lS64SQWdwF3otXJgNR ouvpMuDPawueDwwbDkUks9E JS9mGmgGWTcsnwgAlM0WBbj UTJrwoxwZQt8GPbvBVWtdJA 3QNWbkFZgI6JlNQYrRP2ofs x2GNL3CBkaWVCvGoP9PTXou OIpQIDdiWagHTcxm512PBR3 FtBxKIWrrhAkxZbbaP4xNwT cZnMyMlxjZjEgVGhlIGludG WkfFQacWM3aE0fCY7nMAFay QEvE8BgIWRtloNutUXfVGE0 lXAkcKFyNT3bNKanjYLte7r xd1UnW9gshLiouPN3LF5yLG OvAKEoFNejy8HpxU0wCybgH WBwB1PmZFNLK4DZXSLhOOWE Oj5AXtAUFwXxFvHEMt7iRNv NUywgQUZCXHBhclxwYXJkXG RnVGTEy771wa6fXQEjzDIhe tPCkYPspC3rKTrrGPyqCKuz uYLvVKrpf0wtAEAml7i1yFU dETEsfkTmr9gnRNehhxWqCJ BymDQwnFGzOWCls24qMPstd TqyiCtxBAZra0DpsQujo2Ps IhXzALssr8FiB36yqVRdkJD ruMbjIKJpcrFvLBOmd90hq3 vcVEAnMtB2tAApnSB2tXPul FRzi4TuoNgtBOBlc1phTZGb tr0gpbjskXXpb3QdgR2ishf zUMtcbPXahdQoOMToz5i1gI VkESNxRRKbZYwyfNz5VHCrx 043vj7yyrD8fDXeQJF1VBjk YWJsZSBhcmUgZXZhbHVhdGV hUOAoqvWqRHYqpbSKrN13nh 1rqOP1h7AkDH2cp0CmhZP0F WNobmljYWwgdGVzdGluZyB3 JPIcdSZsRx3apKNkLNO4BTN jvXtaruVSdJ8rFGXcEEs6BQ NtDuJrXwbihvMNKQGtA7GrW SCmaePhgvncZDQ1xN9zd7t0 OKbdQh2uVUUwexgwr7mnpiK uqJAzu5SnXLOpgkOes3FxZV OzhyHmfGLkEOHfzoDzfg9hc aRaZCXaUMRhN1FwkdysuSwy prD9AJTyCRMkqXIsaOxaSEX qFPk4NXbnwwRgw5YrPoCkeu AoqFRebfNbCF8sXNPuoQIff sLlQZY7QPYfBBRCVxQdGBRg x2NpSA2oEAQaaDosEBGjqO7 go5UsAOUcc50hHXIbDQPBKW EgaGFzIGRldGVybWluZWQgd QakeZRjsGLlHAMhJWDqTN7g NXDjefGoxMUux6UqeNQraeI jw6YhedEtOIViIIG2UeOPjS AxkWScrCFfncK6e0RiGAQxk aSwjLgalBCusEDueANlo7Vl vw1rPLKsd0vtnIdxXQ0jvTY iZSByZWdhcmRlZCBhcyBpbn Cgj3BxM6T1fO1dRUhhp2ScV g5kLGZnp6VafeJlOgHOtBpa VPuaAd9oMIDezhlfmZRvD1N ydGlmaWVkIHVuZGVyIHRoZS TXcXijmOBuwDVGVZNkbcH2k 3V1AHfiqPKsabUxGL72DBBb GI5wsKAfjVNtu6OxLFo6QIR kE8iGYJ74IZkfKUAsmWTejG wqpBLiEJVaINEqneRtpb5qj HfayFNdc87fnIN5qWN3PCSk hA2kR4EwTDsyIw0kTMAnthz naDCliEgyUq8ivQGcnX== Gross assessment was [facility] performed at ([facility], code = 2777) Department of Pathology, [address] [place] [id number], Technical component [facility] was performed at ([facility], code = 2778) Department of Pathology, [address] [place] [id number], Professional component [facility] was performed at ([facility], code = 2779) Department of Pathology, [address] [place] [id number], [facility] [id number] 12:37:44 Test Item Value Reference Range Interpretation Comments POC-GLUCOSE METER 98 mg/dL 70-110 : TESTED A T [facility] 6720 (BEAKER) (test code = [facility], 1538) [id number]: Anthropologist/Techni kelle ID = [id number] for Kathleen fay (contract), [facility] POCT-GLUCOSE [id number] 08:40:16 Test Item Value Reference Range Interpretation Comments POC-GLUCOSE METER 120 mg/dL 70-110 H : TESTED A T [facility] 67[facility] ([employer]) (test code = [facility], 1538) 38772: Anthropologist/Techni kelle ID = [id number] for Aditya brewer (contract), [facility] BASIC METABOLIC [id number] 04:46:57 Test Item Value Reference Range Interpretation [...] S NOT APPLICABLE FOR DIALYSIS PATIEN TS. Anthropologist ID - HIEN PHAMD, CHEST, 1 VIEW, NON [id number] 04:07:00Reason for exam:->post-opShould this be performed at the bedside?->Yes [facility] : 1955 Sex: FFINAL REPORT RAD, CHEST, 1 VIEW, NON DEPT INDICATION: post-op COMPARISON: Prior day's exam FINDINGS: Portable frontal view of the chest. IMPRESSION: Support Lines: Stable. Lungs and pleura: No interval consolidation or sizable effusion. No pneumothorax. Heart and mediastinum: Stable contours. Additional findings: None. Signed: Andrew Cary MDReport Verified Date/Time: 06/24/2021 04:07:26 [id number] 03:54:16 Test Item Value Reference Range Interpretation Comments PHOSPHORUS (BEAKER) (test code = 4.3 mg/dL 2.3-4.7 604) Anthropologist ID - HIEN [id number] 03:54:15 Test Item Value Reference Range Interpretation Comments MAGNESIUM (BEAKER) (test code = 2.4 mg/dL 1.6-2.6 627) Anthropologist ID - HIEN [id number] 03:40:54 Test Item Value Reference Range Interpretation Comments PARTIAL THROMBOPLASTIN TIME 40.8 seconds 22.5-36.0 H (BEAKER) (test code = 760) PROTHROMBIN [id number] 03:39:49 Test Item Value Reference Range Interpretation Comments PROTIME (BEAKER) 13.1 seconds 11.9-14.2 (test code = 759) INR (BEAKER) (test 1.01 See_Comment [Automat ed message] code = 370) The system [employer] generated this result transmitted ref erence range: [...] WBC 0-0 (test code = 413) POCT-GLUCOSE [id number] 21:07:58 Test Item Value Reference Range Interpretation Comments POC-GLUCOSE METER 143 mg/dL 70-110 H : TESTED A T [facility] 6720 (BEAKER) (test code = [facility], 1538) 57958: Anthropologist/Techni kelle ID = [id number] for Sheryl Bergeron POCT-GLUCOSE [id number] 16:23:05 Test Item Value Reference Range Interpretation Comments POC-GLUCOSE METER 126 mg/dL 70-110 H : TESTED A T [facility] 6720 (BEAKER) (test code = [facility], 1538) 42503: Anthropologist/Techni kelle ID = [id number] for NABIL OSMANY ZUNIGA BASIC METABOLIC [id number] 13:28:45 Test Item Value Reference Range Interpretation [...] (AKASH) (test code = 652) CALCIUM (AKASH) 8.1 mg/dL 8.4-10.2 L (test code = 697) EGFR (AKASH) (test 12 mL/min/1.73 ESTIMA LEVI GFR IS code = 1092) sq m NOT ACCURATE CREATININE CLEARANCE IN PREDICTING GLOMERULAR FILTRATION RATE . ESTIMATED GFR I S NOT APPLICABLE FOR DIALYSIS PATIEN TS. Anthropologist ID - HIEN MPOCT-GLUCOSE [id number] 11:56:58 Test Item Value Reference Range Interpretation Comments POC-GLUCOSE METER 122 mg/dL 70-110 H : TESTED A T [facility] (AKASH) (test code = [facility] [place], 1538) 88817: Anthropologist/Techni kelle ID = [id number] for OSMANY VOGEL 2D Echo W/Doppler(CW/PW/Color)2021-06-23 08:20:29[facility]PW/Color)2021-06-23 08:20:29Ejection [facility] W[facility]Doppler(CW/PW/Color) 2021-06-23 08:20:29Ejection [facility] W[facility]Doppler(CW/PW/Color)2021-06-23 08:20:29Ejection [facility] W/Doppler(CW/PW/Color)2021-06-23 08:20:29Ejection [facility]H [facility] W[facility]Doppler(CW/PW/Color) 2021-06-23 08:20:29Ejection [facility] W/Doppler(CW/PW/Color)2021-06-23 08:20:29Ejection [facility] W[facility]Doppler(CW/PW/Color)2021-06-23 08:20:29Ejection [facility]H [facility] W/Doppler(CW/PW/Color) 2021-06-23 08:20:29Ejection [facility] W/Doppler(CW/PW/Color)2021-06-23 08:20:29Ejection [facility]H [facility] W[facility]Doppler(CW/PW/Color)2021-06-23 08:20:29Ejection [facility] W[facility]Doppler(CW/PW/Color) 2021-06-23 08:20:29Ejection [facility]SLEH [facility] [id number] 07:43:14 Test Item Value Reference Range Interpretation Comments POC-GLUCOSE METER 111 mg/dL 70-110 H : TESTED A T [facility] 6720 (BEAKER) (test code = [facility]UD[facility], 1538) [id number]: Anthropologist/Techni kelle ID = [id number] for OSMANY VOGEL BASIC METABOLIC [id number] 05:48:55 Test Item Value Reference Range Interpretation [...] S NOT APPLICABLE FOR DIALYSIS PATIEN TS. Anthropologist ID - HIEN [id number] 05:28:52 Test Item Value Reference Range Interpretation Comments PHOSPHORUS (BEAKER) (test code = 3.7 mg/dL 2.3-4.7 604) Anthropologist ID - HIEN [id number] 05:28:51 Test Item Value Reference Range Interpretation Comments MAGNESIUM (BEAKER) (test code = 2.2 mg/dL 1.6-2.6 627) Anthropologist ID - HIEN MRAD, CHEST, 1 VIEW, NON [id number] 05:08:00Reason for exam:->post-opShould this be performed at the bedside?->Yes [facility] 1955 Sex: FFINAL REPORT RAD, CHEST, 1 VIEW, NON DEPT INDICATION: post-op COMPARISON: Prior day's exam FINDINGS: Portable frontal view of the chest. IMPRESSION: Support Lines: Stable. Lungs and pleura: There is improved aeration of both lungs. No new airspace consolidation. No pneumothorax. Heart and mediastinum: Stable contours. Additional findings: None. Signed: Andrew Cary VerifiedDate/Time: 06/23/2021 05:08:22 [id number] 03:01:03 Test Item Value Reference Range Interpretation Comments PARTIAL THROMBOPLASTIN TIME 35.7 seconds 22.5-36.0 (AKASH) (test code = 760) PROTHROMBIN TIME/[id number] 03:00:01 Test Item Value Reference Range Interpretation Comments PROTIME (BEAKER) 13.3 seconds 11.9-14.2 (test code = 759) INR (BEAKER) (test 1.03 See_Comment [Automat ed message] code = 370) The system [employer] generated this result transmitted ref erence range: [...] WBC 0-0 (test code = 413) POCT-GLUCOSE [id number] 22:23:22 Test Item Value Reference Range Interpretation Comments POC-GLUCOSE METER 146 mg/dL 70-110 H : TESTED A T [facility] 6720 (BEAKER) (test code = [facility], 1538) 42929: Anthropologist/Techni kelle ID = [id number] for DC MS, CRISTINA POCT-GLUCOSE [id number] 18:28:19 Test Item Value Reference Range Interpretation Comments POC-GLUCOSE METER 101 mg/dL 70-110 : TESTED A T [facility] 6720 (BEAKER) (test code = [facility], 1538) 05584: Anthropologist/Techni kelle ID = [id number] for Tacos rene (contract), Amb er BASIC METABOLIC [id number] 14:57:30 Test Item Value Reference Range Interpretation [...] S NOT APPLICABLE FOR DIALYSIS PATIEN TS. Anthropologist ID - AAHAMIDPOCT-GLUCOSE [id number] 12:37:53 Test Item Value Reference Range Interpretation Comments POC-GLUCOSE METER 69 mg/dL 70-110 L : TESTED A T [facility] 6720 (BEAKER) (test code = [facility], 1538) 25280: Anthropologist/Techni kelle ID = [id number] for Hole y (contract), Amb er Oxygen saturation, [id number] 10:49:59 Test Item Value Reference Range Interpretation Comments O2 Saturation (Measured) (test code = 79.8 % 97492-5) [facility], [id number] 10:49:59 Test Item Value Reference Range Interpretation Comments O2 Saturation (Measured) (test code = 79.8 % 70373-4) [facility] saturation, [id number] 10:49:59 Test Item Value Reference Range Interpretation Comments O2 Saturation (Measured) (test code = 79.8 % 73389-6) [facility] saturation, [id number] 10:49:59 Test Item Value Reference Range Interpretation Comments O2 Saturation (Measured) (test code = 79.8 % 09234-5) [facility] California[facility] saturation, [id number] 10:49:59 Test Item Value Reference Range Interpretation Comments O2 Saturation (Measured) (test code = 79.8 % 76722-5) [facility] California[facility] saturation, [id number] 10:49:59 Test Item Value Reference Range Interpretation Comments O2 Saturation (Measured) (test code = 79.8 % 84237-3) [facility] California[facility] saturation, [id number] 10:49:59 Test Item Value Reference Range Interpretation Comments O2 Saturation (Measured) (test code = 79.8 % 59869-4) [facility] California[facility] saturation, [id number] 10:49:59 Test Item Value Reference Range Interpretation Comments O2 Saturation (Measured) (test code = 79.8 % 63704-3) [facility] California[facility] saturation, [id number] 10:49:59 Test Item Value Reference Range Interpretation Comments O2 Saturation (Measured) (test code = 79.8 % 76114-9) [facility] saturation, [id number] 10:49:59 Test Item Value Reference Range Interpretation Comments O2 Saturation (Measured) (test code = 79.8 % 40819-7) [facility] saturation, [id number] 10:49:59 Test Item Value Reference Range Interpretation Comments O2 Saturation (Measured) (test code = 79.8 % 37608-8) [facility] California[facility] saturation, [id number] 10:49:59 Test Item Value Reference Range Interpretation Comments O2 Saturation (Measured) (test code = 79.8 % 93124-1) [facility] CaliforniaOXYGEN SATURATION, [id number] 10:49:59 Test Item Value Reference Range Interpretation Comments O2 SATURATION (MEASURED) (BEAKER) 79.8 % (test code = 1455) BASIC METABOLIC [id number] 07:15:45 Test Item Value Reference Range Interpretation [...] S NOT APPLICABLE FOR DIALYSIS PATIEN TS. Anthropologist ID - DBRAD, CHEST, 1 VIEW, NON [id number] 03:19:00Reason for exam:->post-opShould this be performed at the bedside?->Yes [facility] : 1955 Sex: FFINAL REPORT CLINICAL INDICATION: post-op Comparison: 06/21/2021 The cardiomediastinal contours are stable. The lung volumes remain low. Central pulmonary vascular congestion and bilateral parenchymal opacities are unchanged. There is no pneumothorax. Support lines are stable. Signed:Braxton Quintero MDReport Verified Date/Time: 06/22/2021 03:19:08 BASIC METABOLIC [id number] 02:00:09 Test Item Value Reference Range Interpretation [...] S NOT APPLICABLE FOR DIALYSIS PATIEN TS. Anthropologist ID - [id number] 01:57:06 Test Item Value Reference Range Interpretation Comments MAGNESIUM (BEAKER) 2.5 mg/dL 1.6-2.6 Specimen slightly (test code = 627) hemolyzed Anthropologist ID - [id number] 01:57:06 Test Item Value Reference Range Interpretation Comments PHOSPHORUS (BEAKER) 5.0 mg/dL 2.3-4.7 H Specimen slightly (test code = 604) hemolyzed Anthropologist ID - [id number] 01:54:46 Test Item Value Reference Range Interpretation Comments PARTIAL THROMBOPLASTIN TIME 37.8 seconds 22.5-36.0 H (BEAKER) (test code = 760) PROTHROMBIN TIME/[id number] 01:53:47 Test Item Value Reference Range Interpretation Comments PROTIME (BEAKER) 16.4 seconds 11.9-14.2 H (test code = 759) INR (BEAKER) (test 1.34 See_Comment [Automat ed message] code = 370) The system [employer] generated this result transmitted ref erence range: [...] WBC 0-0 (test code = 413) POCT-GLUCOSE [id number] 21:22:08 Test Item Value Reference Range Interpretation Comments POC-GLUCOSE METER 73 mg/dL 70-110 : TESTED A T [facility] 6720 (BEAKER) (test code = [facility], 1538) 04086: Anthropologist/Techni kelle ID = [id number] for Rodríguez Rojas POCT-GLUCOSE [id number] 19:10:01 Test Item Value Reference Range Interpretation Comments POC-GLUCOSE METER 83 mg/dL 70-110 : TESTED A T [facility] 6720 (BEAKER) (test code = [facility], 1538) 02210: Anthropologist/Techni kelle ID = [id number] for HATTIE SALAZAR BASIC METABOLIC [id number] 14:08:36 Test Item Value Reference Range Interpretation [...] S NOT APPLICABLE FOR DIALYSIS PATIEN TS. Anthropologist ID - DBPOCT-GLUCOSE [id number] 13:42:11 Test Item Value Reference Range Interpretation Comments POC-GLUCOSE METER 72 mg/dL 70-110 : TESTED A T [facility] 6720 (BEAKER) (test code = [facility], 1538) 69373: Anthropologist/Techni kelle ID = [id number] for Sun(contract )Katt Surgically obtained culture + gram [id number] 11:46:53 Test Item Value Reference Range Interpretation Comments Result (test code = 6463-4) No growth Gram Stain Result (test No organisms seen code = 1123) [facility] [id number] 11:46:53 Test Item Value Reference Range Interpretation Comments Result (test code = 6463-4) No growth Gram Stain Result (test No organisms seen code = 1123) [facility] + gram [id number] 11:46:53 Test Item Value Reference Range Interpretation Comments Result (test code = 6463-4) No growth Gram Stain Result (test No organisms seen code = 1123) [facility] + gram [id number] 11:46:53 Test Item Value Reference Range Interpretation Comments Result (test code = 6463-4) No growth Gram Stain Result (test No organisms seen code = 1123) [facility] + gram [id number] 11:46:53 Test Item Value Reference Range Interpretation Comments Result (test code = 6463-4) No growth Gram Stain Result (test No organisms seen code = 1123) [facility] + gram [id number] 11:46:53 Test Item Value Reference Range Interpretation Comments Result (test code = 6463-4) No growth Gram Stain Result (test No organisms seen code = 1123) [facility] + gram [id number] 11:46:53 Test Item Value Reference Range Interpretation Comments Result (test code = 6463-4) No growth Gram Stain Result (test No organisms seen code = 1123) [facility] + gram [id number] 11:46:53 Test Item Value Reference Range Interpretation Comments Result (test code = 6463-4) No growth Gram Stain Result (test No organisms seen code = 1123) [facility] + gram [id number] 11:46:53 Test Item Value Reference Range Interpretation Comments Result (test code = 6463-4) No growth Gram Stain Result (test No organisms seen code = 1123) [facility] + gram [id number] 11:46:53 Test Item Value Reference Range Interpretation Comments Result (test code = 6463-4) No growth Gram Stain Result (test No organisms seen code = 1123) [facility] + gram [id number] 11:46:53 Test Item Value Reference Range Interpretation Comments Result (test code = 6463-4) No growth Gram Stain Result (test No organisms seen code = 1123) [facility] + gram [id number] 11:46:53 Test Item Value Reference Range Interpretation Comments Result (test code = 6463-4) No growth Gram Stain Result (test No organisms seen code = 1123) [facility] + GRAM [id number] 11:46:53 Test Item Value Reference Range Interpretation Comments CULTURE (BEAKER) (test code No growth = 1095) GRAM STAIN RESULT (BEAKER) 1+ WBCs (test code = 1123) GRAM STAIN RESULT (BEAKER) No organisms seen (test code = 59539) RAD, CHEST, 1 VIEW, NON [id number] 06:05:00Reason for exam:->post-opShould this be performed at the bedside?->Yes [facility] : 1955 Sex: FFINAL REPORT [...] MDReport Verified Date/Time: 06/21/2021 06:05:24 BASIC METABOLIC [id number] 03:54:19 Test Item Value Reference Range Interpretation [...] S NOT APPLICABLE FOR DIALYSIS PATIEN TS. Anthropologist ID - [id number] 03:49:06 Test Item Value Reference Range Interpretation Comments PHOSPHORUS (BEAKER) (test code = 4.5 mg/dL 2.3-4.7 604) Anthropologist ID - [id number] 03:49:05 Test Item Value Reference Range Interpretation Comments MAGNESIUM (BEAKER) (test code = 2.4 mg/dL 1.6-2.6 627) Anthropologist ID - DBCBC (HEMOGRAM ONLY)2021-06-21 03:45:10 Test [...] /100 WBC 0-0 (test code = 413) [id number] 03:45:00 Test Item Value Reference Range Interpretation Comments PARTIAL THROMBOPLASTIN TIME 35.5 seconds 22.5-36.0 (BEAKER) (test code = 760) PROTHROMBIN TIME/[id number] 03:44:22 Test Item Value Reference Range Interpretation Comments PROTIME (BEAKER) 14.1 seconds 11.9-14.2 (test code = 759) INR (BEAKER) (test 1.11 See_Comment [Automat ed message] code = 370) The system [employer] generated this result transmitted ref erence range: <=5.90. The reference range was not used to int erpret this result as normal/abnormal . RECOMMENDED COUMADIN/WARFARIN INR THERAPY RANGESSTANDARD DOSE: 2.0 - 3.0 Includes: PROPHYLAXIS for venous thrombosis, systemic embolization; TREATMENT for venous thrombosis and/or pulmonary embolus.HIGH RISK: Target INR is 2.5-3.5 for patients with mechanical heart valves.BASIC METABOLIC [id number] 18:24:15 Test Item Value Reference Range Interpretation [...] S NOT APPLICABLE FOR DIALYSIS PATIEN TS. Anthropologist ID - PIAYA LPOCT-GLUCOSE [id number] 13:44:48 Test Item Value Reference Range Interpretation Comments POC-GLUCOSE METER 165 mg/dL 70-110 H : TESTED A T [facility] 6720 ([facility]) (test code = [place], 1538) 455[address]: Anthropologist/Techni kelle ID = [id number] for KOTA ARIAS SARS-CoV2/RT-PCR (Asymptomatic ONLY)2021-06-20 11:58:08 Test Item Value Reference Range Interpretation Comments SARS-COV2/RT-PCR Negative Not Detected, (test code = Negative, See 83216-2) external report for linked test SARS-COV-2 [facility] PERFORM[facility] (test code = 70618-1) BRANDI (test code = Negative result for [...] of the Act. Fact Sheet for Healthcare Providers:https://www.[employer]/sites/default/f radha/product/documents/F act_Sheet_HC_Providers_L sbm_OEUB-MpR-0.pdf Fact Sheet for Healthcare Patients:https://www.BTC Trip/sites/default/fi les/product/documents/Fa ct_Sheet_Patients_Lyra_S ARS-CoV-2.pdf Performing Laboratory:[facility] [place] [address] [facility] (Asymptomatic ONLY)2021-06-20 11:58:08 Test Item Value Reference Range Interpretation Comments SARS-COV2/RT-PCR Negative Not Detected, (test code = Negative, See 87009-5) external report for linked test SARS-COV-2 [facility] (test code = 71073-6) BRANDI (test code = Negative result for [...] of the Act. Fact Sheet for Healthcare Providers:https://www.[employer]/sites/default/f radha/product/documents/F act_Sheet_HC_Providers_L lzu_TMLV-LcH-0.pdf Fact Sheet for Healthcare Patients:https://www.BTC Trip/sites/default/fi les/product/documents/Fa ct_Sheet_Patients_Lyra_S ARS-CoV-2.pdf Performing Laboratory:[facility] [place] [address] [facility]ARS[facility]OV2/[facility] ([facility])2021-06-20 11:58:08 Test Item Value Reference Range Interpretation Comments SARS-COV2/RT-PCR (test Negative Not Detected, Negative, code = 6003380) See external report for linked test SARS-COV-2 PERFORMING LAB [facility] (test code = 7192955) Negative result for this test determines that [...] of the Act.Fact Sheet for Healthcare Prov iders:https://www.Pro V[employer]V.[place]/sites/default/files/product/documents/Fact_Sheet_HC _Nhphwlrgs_Owfc_OESL-WkF-6.pdfFact Sheet for Healthcare Patients:https://www.[employer].[place]/sites/default/files/product/docume nts/Vuvj_Qhkem_Bjfyyeny_Eqkg_WQEF-TnD-8.pdfPerforming Laboratory:[facility], [place] [address]MFUF-YASJUEZ METER 2021-06-20 06:30:37 Test Item Value Reference Range Interpretation Comments POC-GLUCOSE METER 145 mg/dL 70-110 H : TESTED A T [facility] 6720 (BEAKER) (test code [facility], = 1538) 50991: Anthropologist/Techni kelle ID = [id number] for Tash wiseman (contract), [place] RAD, CHEST, 1 VIEW, NON [id number] 06:25:00Reason for exam:->post-opShould this be performed at the bedside?->Yes [facility] 1955 Sex: FFINAL REPORT RAD, CHEST, 1 VIEW, NON DEPT INDICATION: post-op COMPARISON: Prior day's exam FINDINGS: Portable frontal view of the chest. IMPRESSION: Support Lines: Interval extubation. A drainage catheter overlies the upper abdomen and lower hemidiaphragm in the center. Hilbert-Blayne tipoverlies the pulmonary outflow tract. Pacer device and sternotomy wires are unchanged. Lungs and pleura: Bilateral effusions and adjacent compressive atelectasis are unchanged No significant pneumothorax. Heart and mediastinum: Normal contours. Additional findings: None. Signed: Bayron Cosme MDReport Verified Date/Time: 06/20/2021 06:25:51 Electronically signed by: BAYRON COSME MD on 0 06/20/2021 06:25 [id number] 02:12:20 Test Item Value Reference Range Interpretation Comments PARTIAL THROMBOPLASTIN TIME 35.8 seconds 22.5-36.0 (BEAKER) (test code = 760) PROTHROMBIN TIME/[id number] 02:11:37 Test Item Value Reference Range Interpretation Comments PROTIME (BEAKER) 15.4 seconds 11.9-14.2 H (test code = 759) INR (BEAKER) (test 1.24 See_Comment [Automat ed message] code = 370) The system [employer] generated this result transmitted ref erence range: <=5.90. The reference range was not used to int erpret this result as normal/abnormal . RECOMMENDED COUMADIN/WARFARIN INR THERAPY RANGESSTANDARD DOSE: 2.0 - 3.0 Includes: PROPHYLAXIS for venous thrombosis, systemic embolization; TREATMENT for venous thrombosis and/or pulmonary embolus.HIGH RISK: Target INR is 2.5-3.5 for patients with mechanical heart valves.BASIC METABOLIC [id number] 02:08:36 Test Item Value Reference Range Interpretation [...] S NOT APPLICABLE FOR DIALYSIS PATIEN TS. Anthropologist ID - [id number] 01:57:56 Test Item Value Reference Range Interpretation Comments PHOSPHORUS (BEAKER) (test code = 4.1 mg/dL 2.3-4.7 604) Anthropologist ID - [id number] 01:57:55 Test Item Value Reference Range Interpretation Comments MAGNESIUM (BEAKER) (test code = 2.2 mg/dL 1.6-2.6 627) Anthropologist ID - DBCBC (HEMOGRAM ONLY)2021-06-20 01:36:09 Test [...] 0-0 (test code = 413) Blood gas, [id number] 01:27:29 Test Item Value Reference Range Interpretation [...] 28 Lab Interpretation Abnormal (test code = 12455-1) [facility], [id number] 01:27:29 Test Item Value Reference Range Interpretation [...] 28 Lab Interpretation Abnormal (test code = 42019-6) [facility] gas, [id number] 01:27:29 Test Item Value Reference Range Interpretation [...] 28 Lab Interpretation Abnormal (test code = 77144-7) [facility], edmefuze8519-39-69 01:27:29 Test Item Value Reference Range Interpretation [...] 28 Lab Interpretation Abnormal (test code = 12718-8) [facility] gas, [id number] 01:27:29 Test Item Value Reference Range Interpretation [...] 28 Lab Interpretation Abnormal (test code = 10262-2) [facility], [id number] 01:27:29 Test Item Value Reference Range Interpretation [...] 28 Lab Interpretation Abnormal (test code = 01664-5) [facility], [id number] 01:27:29 Test Item Value Reference Range Interpretation [...] 28 Lab Interpretation Abnormal (test code = 15379-9) [facility], uwjkdqdj6566-20-27 01:27:29 Test Item Value Reference Range Interpretation [...] 28 Lab Interpretation Abnormal (test code = 44806-8) [facility] gas, [id number] 01:27:29 Test Item Value Reference Range Interpretation Comments pH, Arterial (test code 7.41 7.35-7.45 = 2744-1) pCO2, Arterial (test 36 See_Comment [Autom ated code = 2018-11) message] The system which generated this result transmitted reference range : 35 - 45 mm Hg. The reference range was not used to interpret this result as normal/abnormal . pO2, Arterial (test 83 See_Comment [Automa lvei code = 2703-7) message] The system which [...] 28 Lab Interpretation Abnormal (test code = 01551-9) [facility] gas, [id number] 01:27:29 Test Item Value Reference Range Interpretation [...] 28 Lab Interpretation Abnormal (test code = 67582-8) [facility] gas, [id number] 01:27:29 Test Item Value Reference Range Interpretation [...] 28 Lab Interpretation Abnormal (test code = 78564-3) [facility] California[facility] gas, afafkeru0090-15-31 01:27:29 Test Item Value Reference Range Interpretation [...] 28 Lab Interpretation Abnormal (test code = 01355-9) [facility] California[facility]OOD GAS, [id number] 01:27:29 Test Item Value Reference Range Interpretation [...] (BEAKER) (test code = 1819) 28.0 Calcium, [id number] 01:26:07 Test Item Value Reference Range Interpretation Comments Calcium, Ion (test code = 1993-06) 1.17 mmol/L 1.12-1.27 pH, Blood (test code = 02277-4) 7.39 [facility] California[facility], [id number] 01:26:07 Test Item Value Reference Range Interpretation Comments Calcium, Ion (test code = 1993-06) 1.17 mmol/L 1.12-1.27 pH, Blood (test code = 96604-1) 7.39 [facility] CaliforniaCal[facility], [id number] 01:26:07 Test Item Value Reference Range Interpretation Comments Calcium, Ion (test code = 1993-06) 1.17 mmol/L 1.12-1.27 pH, Blood (test code = 10149-4) 7.39 [facility] California[facility], [id number] 01:26:07 Test Item Value Reference Range Interpretation Comments Calcium, Ion (test code = 1993-06) 1.17 mmol/L 1.12-1.27 pH, Blood (test code = 20725-2) 7.39 [facility] CaliforniaCal[facility], [id number] 01:26:07 Test Item Value Reference Range Interpretation Comments Calcium, Ion (test code = 1993-06) 1.17 mmol/L 1.12-1.27 pH, Blood (test code = 14489-7) 7.39 [facility] CaliforniaCal[facility], [id number] 01:26:07 Test Item Value Reference Range Interpretation Comments Calcium, Ion (test code = 1993-06) 1.17 mmol/L 1.12-1.27 pH, Blood (test code = 30906-5) 7.39 [facility] CaliforniaCal[facility], [id number] 01:26:07 Test Item Value Reference Range Interpretation Comments Calcium, Ion (test code = 1993-06) 1.17 mmol/L 1.12-1.27 pH, Blood (test code = 99039-4) 7.39 [facility] CaliforniaCal[facility], [id number] 01:26:07 Test Item Value Reference Range Interpretation Comments Calcium, Ion (test code = 1993-06) 1.17 mmol/L 1.12-1.27 pH, Blood (test code = 11850-9) 7.39 [facility] CaliforniaCal[facility], [id number] 01:26:07 Test Item Value Reference Range Interpretation Comments Calcium, Ion (test code = 1993-06) 1.17 mmol/L 1.12-1.27 pH, Blood (test code = 31144-9) 7.39 [facility] CaliforniaCal[facility], [id number] 01:26:07 Test Item Value Reference Range Interpretation Comments Calcium, Ion (test code = 1993-06) 1.17 mmol/L 1.12-1.27 pH, Blood (test code = 21519-8) 7.39 [facility] CaliforniaCal[facility], [id number] 01:26:07 Test Item Value Reference Range Interpretation Comments Calcium, Ion (test code = 1993-06) 1.17 mmol/L 1.12-1.27 pH, Blood (test code = 40548-2) 7.39 [facility] CaliforniaCal[facility], [id number] 01:26:07 Test Item Value Reference Range Interpretation Comments Calcium, Ion (test code = 1993-06) 1.17 mmol/L 1.12-1.27 pH, Blood (test code = 73105-8) 7.39 [facility] CaliforniaCALCIUM, [id number] 01:26:07 Test Item Value Reference Range Interpretation Comments CALCIUM IONIZED (BEAKER) (test 1.17 mmol/L 1.12-1.27 code = 698) PH, BLOOD (BEAKER) (test code = 7.39 1810) Prepare [id number] 23:55:00 Test Item Value Reference Range Interpretation Comments Unit ABO (test code = 3389250) A Pos UNIT NUMBER (test code = [id number] 934-0) Status (test code = 1426379) [place]_TIMEINCHART Blood Bank Product (test code PLATELETS = 2263) PRODUCT CODE (test code = T5571O81 933-2) [facility] [id number] 23:55:00 Test Item Value Reference Range Interpretation Comments Unit ABO (test code = 2592803) A Pos UNIT NUMBER (test code = [id number] 934-0) Status (test code = 3136221) TX_TIMEINCHART Blood Bank Product (test code PLATELETS = 2263) PRODUCT CODE (test code = J2037U20 933-2) [facility] [id number] 23:55:00 Test Item Value Reference Range Interpretation Comments Unit ABO (test code = 6585399) A Pos UNIT NUMBER (test code = [id number] 934-0) Status (test code = 7819865) TX_TIMEINCHART Blood Bank Product (test code PLATELETS = 2263) PRODUCT CODE (test code = A6515M82 933-2) [facility] [id number] 23:55:00 Test Item Value Reference Range Interpretation Comments Unit ABO (test code = 9312123) A Pos UNIT NUMBER (test code = [id number] 934-0) Status (test code = 6829789) TX_TIMEINCHART Blood Bank Product (test code PLATELETS = 2263) PRODUCT CODE (test code = T1254Q79 933-2) [facility] [id number] 23:55:00 Test Item Value Reference Range Interpretation Comments Unit ABO (test code = 2292796) A Pos UNIT NUMBER (test code = [id number] 934-0) Status (test code = 1481117) TX_TIMEINCHART Blood Bank Product (test code PLATELETS = 2263) PRODUCT CODE (test code = F2209P60 933-2) [facility] [id number] 23:55:00 Test Item Value Reference Range Interpretation Comments Unit ABO (test code = 0002471) A Pos UNIT NUMBER (test code = [id number] 934-0) Status (test code = 3522964) TX_TIMEINCHART Blood Bank Product (test code PLATELETS = 2263) PRODUCT CODE (test code = X5803B96 933-2) [facility] [id number] 23:55:00 Test Item Value Reference Range Interpretation Comments Unit ABO (test code = 4918825) A Pos UNIT NUMBER (test code = [id number] 934-0) Status (test code = 6248613) TX_TIMEINCHART Blood Bank Product (test code PLATELETS = 2263) PRODUCT CODE (test code = J8897B20 933-2) [facility] [id number] 23:55:00 Test Item Value Reference Range Interpretation Comments Unit ABO (test code = 1941703) A Pos UNIT NUMBER (test code = [id number] 934-0) Status (test code = 9770365) TX_TIMEINCHART Blood Bank Product (test code PLATELETS = 2263) PRODUCT CODE (test code = D6535Q61 933-2) [facility] [id number] 23:55:00 Test Item Value Reference Range Interpretation Comments Unit ABO (test code = 3651089) A Pos UNIT NUMBER (test code = [id number] 934-0) Status (test code = 9869366) TX_TIMEINCHART Blood Bank Product (test code PLATELETS = 2263) PRODUCT CODE (test code = H1134F54 933-2) [facility] [id number] 23:55:00 Test Item Value Reference Range Interpretation Comments Unit ABO (test code = 5477986) A Pos UNIT NUMBER (test code = [id number] 934-0) Status (test code = 4204211) TX_TIMEINCHART Blood Bank Product (test code PLATELETS = 2263) PRODUCT CODE (test code = U4188Z72 933-2) [facility] [id number] 23:55:00 Test Item Value Reference Range Interpretation Comments Unit ABO (test code = 3500773) A Pos UNIT NUMBER (test code = [id number] 934-0) Status (test code = 9174727) TX_TIMEINCHART Blood Bank Product (test code PLATELETS = 2263) PRODUCT CODE (test code = Y5068M03 933-2) [facility] [id number] 23:55:00 Test Item Value Reference Range Interpretation Comments Unit ABO (test code = 8753015) A Pos UNIT NUMBER (test code = [id number] 934-0) Status (test code = 9586473) TX_TIMEINCHART Blood Bank Product (test code PLATELETS = 2263) PRODUCT CODE (test code = U3798B63 933-2) [facility] [id number] 23:54:00 Test Item Value Reference Range Interpretation Comments CROSSMATCH (test code = COMPATIBLE 2264) Unit ABO (test code = O Pos 7004895) UNIT NUMBER (test code = [id number] 934-0) Status (test code = RETURNED FROM ISSUE 15100613) Blood Bank Product (test RED BLOOD CELLS code = 2263) PRODUCT CODE (test code = G5695D86 933-2) [facility] [id number] 23:54:00 Test Item Value Reference Range Interpretation Comments CROSSMATCH (test code = COMPATIBLE 2264) Unit ABO (test code = O Pos 8186363) UNIT NUMBER (test code = [id number] 934-0) Status (test code = RETURNED FROM ISSUE 6773843) Blood Bank Product (test RED BLOOD CELLS code = 2263) PRODUCT CODE (test code = P5665I87 933-2) [facility] [id number] 23:54:00 Test Item Value Reference Range Interpretation Comments CROSSMATCH (test code = COMPATIBLE 2264) Unit ABO (test code = O Pos 4948424) UNIT NUMBER (test code = [id number] 934-0) Status (test code = RETURNED FROM ISSUE 15100613) Blood Bank Product (test RED BLOOD CELLS code = 2263) PRODUCT CODE (test code = S7932J29 933-2) [facility] [id number] 23:54:00 Test Item Value Reference Range Interpretation Comments CROSSMATCH (test code = COMPATIBLE 2264) Unit ABO (test code = O Pos 4409805) UNIT NUMBER (test code = [id number] 934-0) Status (test code = RETURNED FROM ISSUE 15100613) Blood Bank Product (test RED BLOOD CELLS code = 2263) PRODUCT CODE (test code = P8318T79 933-2) [facility] [id number] 23:54:00 Test Item Value Reference Range Interpretation Comments CROSSMATCH (test code = COMPATIBLE 2264) Unit ABO (test code = O Pos 4405577) UNIT NUMBER (test code = [id number] 934-0) Status (test code = RETURNED FROM ISSUE 15100613) Blood Bank Product (test RED BLOOD CELLS code = 2263) PRODUCT CODE (test code = Z5066E39 933-2) [facility] [id number] 23:54:00 Test Item Value Reference Range Interpretation Comments CROSSMATCH (test code = COMPATIBLE 2264) Unit ABO (test code = O Pos 8436337) UNIT NUMBER (test code = [id number] 934-0) Status (test code = RETURNED FROM ISSUE 15100613) Blood Bank Product (test RED BLOOD CELLS code = 2263) PRODUCT CODE (test code = Y3584V03 933-2) [facility] [id number] 23:54:00 Test Item Value Reference Range Interpretation Comments CROSSMATCH (test code = COMPATIBLE 2264) Unit ABO (test code = O Pos 3775836) UNIT NUMBER (test code = [id number] 934-0) Status (test code = RETURNED FROM ISSUE 15100613) Blood Bank Product (test RED BLOOD CELLS code = 2263) PRODUCT CODE (test code = A9550W10 933-2) [facility] [id number] 23:54:00 Test Item Value Reference Range Interpretation Comments CROSSMATCH (test code = COMPATIBLE 2264) Unit ABO (test code = O Pos 6290865) UNIT NUMBER (test code = [id number] 934-0) Status (test code = RETURNED FROM ISSUE 3548935) Blood Bank Product (test RED BLOOD CELLS code = 2263) PRODUCT CODE (test code = G1089R06 933-2) [facility] [id number] 23:54:00 Test Item Value Reference Range Interpretation Comments CROSSMATCH (test code = COMPATIBLE 2264) Unit ABO (test code = O Pos 3426418) UNIT NUMBER (test code = [id number] 934-0) Status (test code = RETURNED FROM ISSUE 15100613) Blood Bank Product (test RED BLOOD CELLS code = 2263) PRODUCT CODE (test code = R8535R38 933-2) [facility] [id number] 23:54:00 Test Item Value Reference Range Interpretation Comments CROSSMATCH (test code = COMPATIBLE 2264) Unit ABO (test code = O Pos 1834005) UNIT NUMBER (test code = [id number] 934-0) Status (test code = RETURNED FROM ISSUE 15100613) Blood Bank Product (test RED BLOOD CELLS code = 2263) PRODUCT CODE (test code = J2984V36 933-2) [facility] [id number] 23:54:00 Test Item Value Reference Range Interpretation Comments CROSSMATCH (test code = COMPATIBLE 2264) Unit ABO (test code = O Pos 7624309) UNIT NUMBER (test code = [id number] 934-0) Status (test code = RETURNED FROM ISSUE 15100613) Blood Bank Product (test RED BLOOD CELLS code = 2263) PRODUCT CODE (test code = G9063K05 933-2) [facility] [id number] 23:54:00 Test Item Value Reference Range Interpretation Comments CROSSMATCH (test code = COMPATIBLE 4) Unit ABO (test code = O Pos 2046421) UNIT NUMBER (test code = [id number] 934-0) Status (test code = RETURNED FROM ISSUE 15100613) Blood Bank Product (test RED BLOOD CELLS code = 2263) PRODUCT CODE (test code = C7682A84 933-2) [facility] [id number] 22:04:29 Test Item Value Reference Range Interpretation [...] S NOT APPLICABLE FOR DIALYSIS PATIEN TS. Anthropologist ID - [id number] 22:03:41 Test Item Value Reference Range Interpretation Comments PHOSPHORUS (BEAKER) (test code = 4.3 mg/dL 2.3-4.7 604) Anthropologist ID - [id number] 22:03:40 Test Item Value Reference Range Interpretation Comments MAGNESIUM (BEAKER) (test code = 2.2 mg/dL 1.6-2.6 627) Anthropologist ID - DBpH, htgrzffk0643-01-60 21:40:14 Test Item Value Reference Range Interpretation Comments pH, Arterial (test code = 2744-1) 7.37 7.35-7.45 Lab Interpretation (test code = Normal 12403-0) [facility], [id number] 21:40:14 Test Item Value Reference Range Interpretation Comments pH, Arterial (test code = 2744-1) 7.37 7.35-7.45 Lab Interpretation (test code = Normal 72248-8) [facility], [id number] 21:40:14 Test Item Value Reference Range Interpretation Comments pH, Arterial (test code = 2744-1) 7.37 7.35-7.45 Lab Interpretation (test code = Normal 50640-3) [facility], [id number] 21:40:14 Test Item Value Reference Range Interpretation Comments pH, Arterial (test code = 2744-1) 7.37 7.35-7.45 Lab Interpretation (test code = Normal 75671-5) [facility] [id number] 21:40:14 Test Item Value Reference Range Interpretation Comments pH, Arterial (test code = 2744-1) 7.37 7.35-7.45 Lab Interpretation (test code = Normal 95738-9) [facility]2022-03-18 21:40:14 Test Item Value Reference Range Interpretation Comments pH, Arterial (test code = 2744-1) 7.37 7.35-7.45 Lab Interpretation (test code = Normal 31464-3) [facility]2022-03-18 21:40:14 Test Item Value Reference Range Interpretation Comments pH, Arterial (test code = 2744-1) 7.37 7.35-7.45 Lab Interpretation (test code = Normal 99106-6) [facility]2022-03-18 21:40:14 Test Item Value Reference Range Interpretation Comments pH, Arterial (test code = 2744-1) 7.37 7.35-7.45 Lab Interpretation (test code = Normal 03245-0) [facility]2022-03-18 21:40:14 Test Item Value Reference Range Interpretation Comments pH, Arterial (test code = 2744-1) 7.37 7.35-7.45 Lab Interpretation (test code = Normal 32555-1) [facility]2022-03-18 21:40:14 Test Item Value Reference Range Interpretation Comments pH, Arterial (test code = 2744-1) 7.37 7.35-7.45 Lab Interpretation (test code = Normal 13237-7) [facility]2022-03-18 21:40:14 Test Item Value Reference Range Interpretation Comments pH, Arterial (test code = 2744-1) 7.37 7.35-7.45 Lab Interpretation (test code = Normal 68926-2) [facility]2022-03-18 21:40:14 Test Item Value Reference Range Interpretation Comments pH, Arterial (test code = 2744-1) 7.37 7.35-7.45 Lab Interpretation (test code = Normal 31262-4) [facility] [id number] 21:40:14 Test Item Value Reference Range Interpretation Comments PH ARTERIAL (BEAKER) (test code = 383) 7.37 7.35-7.45 POCT-GLUCOSE [id number] 18:07:04 Test Item Value Reference Range Interpretation Comments POC-GLUCOSE METER 208 mg/dL 70-110 H : TESTED A T [facility] 6720 (BEAKER) (test code = [place], 1538) [address]: Anthropologist/Techni kelle ID = [id number] for Mally sergeyniallChilo BLOOD GAS, [id number] 12:45:46 Test Item Value Reference Range Interpretation [...] (test code = 1819) 36.0 BLOOD GAS, [id number] 11:23:57 Test Item Value Reference Range Interpretation [...] FIO2 (BEAKER) (test code = 1819) 40.0 [id number] 09:37:11 Test Item Value Reference Range Interpretation Comments Scan Result (test code = See scanned report [id number]) BRANDI (test code = BRANDI) See scanned report [place] 91932022-03-18 09:37:11 Test Item Value Reference Range Interpretation Comments Scan Result (test code = See scanned report [id number]) BRANDI (test code = BRANDI) See scanned report [place] 91932022-03-18 09:37:11 Test Item Value Reference Range Interpretation Comments Scan Result (test code = See scanned report [id number]) BRANDI (test code = BRANDI) See scanned report [place] 91932022-03-18 09:37:11 Test Item Value Reference Range Interpretation Comments Scan Result (test code = See scanned report [id number]) BRANDI (test code = BRANDI) See scanned report [place] 91932022-03-18 09:37:11 Test Item Value Reference Range Interpretation Comments Scan Result (test code = See scanned report [id number]) BRANDI (test code = BRANDI) See scanned report [place] 91932022-03-18 09:37:11 Test Item Value Reference Range Interpretation Comments Scan Result (test code = See scanned report 7194036) BRANDI (test code = BRANDI) See scanned report [place] 91932022-03-18 09:37:11 Test Item Value Reference Range Interpretation Comments Scan Result (test code = See scanned report 7971881) BRANDI (test code = BRANDI) See scanned report [place] 781472-03-18 09:37:11 Test Item Value Reference Range Interpretation Comments Scan Result (test code = See scanned report [id number]) BRANDI (test code = BRANDI) See scanned report [place] 6[address]30-03-18 09:37:11 Test Item Value Reference Range Interpretation Comments Scan Result (test code = See scanned report [id number]) BRANDI (test code = BRANDI) See scanned report [place] 781472-03-18 09:37:11 Test Item Value Reference Range Interpretation Comments Scan Result (test code = See scanned report 7309195) BRANDI (test code = BRANDI) See scanned report [facility] 09:37:11 Test Item Value Reference Range Interpretation Comments Scan Result (test code = See scanned report [id number]) BRANDI (test code = BRANDI) See scanned report [facility]22-[facility]-18 09:37:11 Test Item Value Reference Range Interpretation Comments Scan Result (test code = See scanned report [id number]) BRANDI (test code = BRANDI) See scanned report [facility] [id number] 09:37:11 Test Item Value Reference Range Interpretation Comments SCAN RESULT (test code = See scanned report [id number]) See scanned reportPOCT-GLUCOSE [id number] 08:52:16 Test Item Value Reference Range Interpretation Comments POC-GLUCOSE METER 165 mg/dL 70-110 H : TESTED A T [facility] 6720 (BEAKER) (test code = [place], 1538) [address]: Anthropologist/Techni kelle ID = [id number] for Chilo Mccarty RAD, CHEST, 1 VIEW, NON [id number] 04:10:00Reason for exam:->post-opShould this be performed at the bedside?->Yes [facility] : 1955 Sex: FFINAL REPORT RAD, CHEST, 1 VIEW, NON DEPT INDICATION: post-op COMPARISON: Prior day's exam FINDINGS: Portable frontal view of the chest. IMPRESSION: Support Lines: Stable Lungs and pleura: Unchanged central venous congestion. No new consolidation or effusion. No pneumothorax. Heart and mediastinum: Stable contours. Additional findings: None. Signed: Andrew Caryeport Verified Date/Time: 06/19/2021 04:10:04 BASIC METABOLIC [id number] 03:27:20 Test Item Value Reference Range Interpretation [...] S NOT APPLICABLE FOR DIALYSIS PATIEN TS. Anthropologist ID - RAKAN [id number] 03:26:39 Test Item Value Reference Range Interpretation Comments MAGNESIUM (BEAKER) (test code = 2.4 mg/dL 1.6-2.6 627) Anthropologist ID - RAKAN HAEQCJPDIKM9603-83-56 03:26:39 Test Item Value Reference Range Interpretation Comments PHOSPHORUS (BEAKER) (test code = 4.8 mg/dL 2.3-4.7 H 604) Anthropologist ID - RAKAN [id number] 03:02:29 Test Item Value Reference Range Interpretation Comments PARTIAL THROMBOPLASTIN TIME 35.4 seconds 22.5-36.0 (BEAKER) (test code = 760) PROTHROMBIN TIME/[id number] 03:01:50 Test Item Value Reference Range Interpretation Comments PROTIME (BEAKER) 16.0 seconds 11.9-14.2 H (test code = 759) INR (BEAKER) (test 1.31 See_Comment [Automat ed message] code = 370) The system [employer] generated this result transmitted ref erence range: [...] 0-0 (test code = 413) OXYGEN SATURATION, [id number] 02:28:43 Test Item Value Reference Range Interpretation Comments O2 SATURATION (MEASURED) (BEAKER) 79.3 % (test code = 1455) BLOOD GAS, [id number] 02:25:53 Test Item Value Reference Range Interpretation [...] (BEAKER) (test code = 1819) 40.0 POCT-GLUCOSE [id number] 00:06:42 Test Item Value Reference Range Interpretation Comments POC-GLUCOSE METER 88 mg/dL 70-110 : TESTED A T [facility] 6720 (BEAKER) (test code = [facility], [facility]8) [address]: Anthropologist/Techni klele ID = [id number] for JUGU ILON (V), ERICK POCT-GLUCOSE [id number] 23:14:53 Test Item Value Reference Range Interpretation Comments POC-GLUCOSE METER 91 mg/dL 70-110 : TESTED A T [facility] 6720 (BEAKER) (test code = [facility], 1538) [address]: Anthropologist/Techni kelle ID = [id number] for JUGU ILON (V), ERICK POCT-GLUCOSE [id number] 21:30:27 Test Item Value Reference Range Interpretation Comments POC-GLUCOSE METER 128 mg/dL 70-110 H : TESTED A T [facility] 6720 (BEAKER) (test code = [facility], 1538) [address]: Anthropologist/Techni kelle ID = [id number] for JU GUILON (V), ERICK POCT-GLUCOSE [id number] 19:05:18 Test Item Value Reference Range Interpretation Comments POC-GLUCOSE METER 165 mg/dL 70-110 H : TESTED A T [facility] 6720 (BEAKER) (test code = [facility], 1538) [address]: Anthropologist/Techni kelle ID = [id number] for GABRIEL BERUMEN BASIC METABOLIC [id number] 18:47:16 Test Item Value Reference Range Interpretation [...] S NOT APPLICABLE FOR DIALYSIS PATIEN TS. Anthropologist ID - HIEN [id number] 18:44:55 Test Item Value Reference Range Interpretation Comments MAGNESIUM (BEAKER) (test code = 2.5 mg/dL 1.6-2.6 627) Anthropologist ID - HIEN [id number] 18:44:55 Test Item Value Reference Range Interpretation Comments PHOSPHORUS (BEAKER) (test code = 4.7 mg/dL 2.3-4.7 604) Anthropologist ID - HIEN MBLOOD GAS, [id number] 18:43:01 Test Item Value Reference Range Interpretation [...] (test code = 1819) 60.0 OXYGEN SATURATION, [id number] 18:40:36 Test Item Value Reference Range Interpretation Comments O2 SATURATION (MEASURED) (BEAKER) 90.5 % (test code = 1455) Lactic Acid, [id number] 18:40:35 Test Item Value Reference Range Interpretation Comments Lactate, Art (test code = 2.1 mmol/L 0.5-2.2 2874) BRANDI (test code = BRANDI) Anthropologist ID - HIEN M Lab Interpretation (test Normal code = 52181-1) [facility], [id number] 18:40:35 Test Item Value Reference Range Interpretation Comments Lactate, Art (test code = 2.1 mmol/L 0.5-2.2 2874) BRANDI (test code = BRANDI) Anthropologist ID - HIEN M Lab Interpretation (test Normal code = 55059-9) [facility], [id number] 18:40:35 Test Item Value Reference Range Interpretation Comments Lactate, Art (test code = 2.1 mmol/L 0.5-2.2 2874) BRANDI (test code = BRANDI) Anthropologist ID - HIEN M Lab Interpretation (test Normal code = 14686-9) [facility], [id number] 18:40:35 Test Item Value Reference Range Interpretation Comments Lactate, Art (test code = 2.1 mmol/L 0.5-2.2 2874) BRANDI (test code = BRANDI) Anthropologist ID - HIEN M Lab Interpretation (test Normal code = 68603-9) [facility], [id number] 18:40:35 Test Item Value Reference Range Interpretation Comments Lactate, Art (test code = 2.1 mmol/L 0.5-2.2 2874) BRANDI (test code = BRANDI) Anthropologist ID - HIEN M Lab Interpretation (test Normal code = 56514-4) [facility], [id number] 18:40:35 Test Item Value Reference Range Interpretation Comments Lactate, Art (test code = 2.1 mmol/L 0.5-2.2 2874) BRANDI (test code = BRANDI) Anthropologist ID - HIEN M Lab Interpretation (test Normal code = 20170-8) [facility], [id number] 18:40:35 Test Item Value Reference Range Interpretation Comments Lactate, Art (test code = 2.1 mmol/L 0.5-2.2 2874) BRANDI (test code = BRANDI) Anthropologist ID - HIEN Lab Interpretation (test Normal code = 23302-5) [facility], [id number] 18:40:35 Test Item Value Reference Range Interpretation Comments Lactate, Art (test code = 2.1 mmol/L 0.5-2.2 2874) BRANDI (test code = BRANDI) Anthropologist ID - HIEN Lab Interpretation (test Normal code = 57775-0) [facility], [id number] 18:40:35 Test Item Value Reference Range Interpretation Comments Lactate, Art (test code = 2.1 mmol/L 0.5-2.2 2874) BRANDI (test code = BRANDI) Anthropologist ID - HIEN Lab Interpretation (test Normal code = 29574-8) [facility], [id number] 18:40:35 Test Item Value Reference Range Interpretation Comments Lactate, Art (test code = 2.1 mmol/L 0.5-2.2 2874) BRANDI (test code = BRANDI) Anthropologist ID - HIEN Lab Interpretation (test Normal code = 74209-4) [facility], [id number] 18:40:35 Test Item Value Reference Range Interpretation Comments Lactate, Art (test code = 2.1 mmol/L 0.5-2.2 2874) BRANDI (test code = BRANDI) Anthropologist ID - HIEN M Lab Interpretation (test Normal code = 33445-4) [facility], [id number] 18:40:35 Test Item Value Reference Range Interpretation Comments Lactate, Art (test code = 2.1 mmol/L 0.5-2.2 2874) BRANDI (test code = BRANDI) Anthropologist ID - HIEN Hernandes Lab Interpretation (test Normal code = 22815-5) [facility], [id number] 18:40:35 Test Item Value Reference Range Interpretation Comments LACTATE BLOOD ARTERIAL (2) 2.1 mmol/L 0.5-2.2 (BEAKER) (test code = 2874) Anthropologist ID - HIEN [id number] 18:38:33 Test Item Value Reference Range Interpretation Comments PARTIAL THROMBOPLASTIN TIME 37.2 seconds 22.5-36.0 H (BEAKER) (test code = 760) PROTHROMBIN TIME/[id number] 18:37:33 Test Item Value Reference Range Interpretation Comments PROTIME (BEAKER) 16.6 seconds 11.9-14.2 H (test code = 759) INR (BEAKER) (test 1.37 See_Comment [Automat ed message] code = 370) The system [employer] generated this result transmitted ref erence range: [...] 0-0 (test code = 413) HGB/HCT (H&H)-Stat [id number] 16:13:19 Test Item Value Reference Range Interpretation Comments Hemoglobin (test code = 10.6 See_Comment L [Au tomated message] 786-4) The system [employer] generated this result transmitted ref erence range: 12.0 - 1 5.0 GM/DL. The refe rence range was not u sed to interpret this result as normal/abnor mal. Hematocrit (test code = 31.0 % 36.0-45.0 L 4544-3) Lab Interpretation (test Abnormal code = 86417-9) [facility] California[facility]/HCT (H&H)-Stat [id number] 16:13:19 Test Item Value Reference Range Interpretation Comments Hemoglobin (test code = 10.6 See_Comment L [Au tomated message] 786-4) The system [employer] generated this result transmitted ref erence range: 12.0 - 1 5.0 GM/DL. The refe rence range was not u sed to interpret this result as normal/abnor mal. Hematocrit (test code = 31.0 % 36.0-45.0 L 4544-3) Lab Interpretation (test Abnormal code = 26969-5) [facility] (H&H)-Stat [id number] 16:13:19 Test Item Value Reference Range Interpretation Comments Hemoglobin (test code = 10.6 See_Comment L [Au tomated message] 786-4) The system [employer] generated this result transmitted ref erence range: 12.0 - 1 5.0 GM/DL. The refe rence range was not u sed to interpret this result as normal/abnor mal. Hematocrit (test code = 31.0 % 36.0-45.0 L 4544-3) Lab Interpretation (test Abnormal code = 12860-6) [facility] [id number] 16:13:19 Test Item Value Reference Range Interpretation Comments Hemoglobin (test code = 10.6 See_Comment L [Au tomated message] 786-4) The system [employer] generated this result transmitted ref erence range: 12.0 - 1 5.0 GM/DL. The refe rence range was not u sed to interpret this result as normal/abnor mal. Hematocrit (test code = 31.0 % 36.0-45.0 L 4544-3) Lab Interpretation (test Abnormal code = 57066-7) [facility] [id number] 16:13:19 Test Item Value Reference Range Interpretation Comments Hemoglobin (test code = 10.6 See_Comment L [Au tomated message] 786-4) The system [employer] generated this result transmitted ref erence range: 12.0 - 1 5.0 GM/DL. The refe rence range was not u sed to interpret this result as normal/abnor mal. Hematocrit (test code = 31.0 % 36.0-45.0 L 4544-3) Lab Interpretation (test Abnormal code = 20859-8) [facility] [id number] 16:13:19 Test Item Value Reference Range Interpretation Comments Hemoglobin (test code = 10.6 See_Comment L [Au tomated message] 786-4) The system [employer] generated this result transmitted ref erence range: 12.0 - 1 5.0 GM/DL. The refe rence range was not u sed to interpret this result as normal/abnor mal. Hematocrit (test code = 31.0 % 36.0-45.0 L 4544-3) Lab Interpretation (test Abnormal code = 94012-2) [facility] [id number] 16:13:19 Test Item Value Reference Range Interpretation Comments Hemoglobin (test code = 10.6 See_Comment L [Au tomated message] 786-4) The system [employer] generated this result transmitted ref erence range: 12.0 - 1 5.0 GM/DL. The refe rence range was not u sed to interpret this result as normal/abnor mal. Hematocrit (test code = 31.0 % 36.0-45.0 L 4544-3) Lab Interpretation (test Abnormal code = 35931-9) [facility] [id number] 16:13:19 Test Item Value Reference Range Interpretation Comments Hemoglobin (test code = 10.6 See_Comment L [Au tomated message] 786-4) The system [employer] generated this result transmitted ref erence range: 12.0 - 1 5.0 GM/DL. The refe rence range was not u sed to interpret this result as normal/abnor mal. Hematocrit (test code = 31.0 % 36.0-45.0 L 4544-3) Lab Interpretation (test Abnormal code = 96579-6) [facility] [id number] 16:13:19 Test Item Value Reference Range Interpretation Comments Hemoglobin (test code = 10.6 See_Comment L [Au tomated message] 786-4) The system [employer] generated this result transmitted ref erence range: 12.0 - 1 5.0 GM/DL. The refe rence range was not u sed to interpret this result as normal/abnor mal. Hematocrit (test code = 31.0 % 36.0-45.0 L 4544-3) Lab Interpretation (test Abnormal code = 28950-0) [facility] [id number] 16:13:19 Test Item Value Reference Range Interpretation Comments Hemoglobin (test code = 10.6 See_Comment L [Au tomated message] 786-4) The system [employer] generated this result transmitted ref erence range: 12.0 - 1 5.0 GM/DL. The refe rence range was not u sed to interpret this result as normal/abnor mal. Hematocrit (test code = 31.0 % 36.0-45.0 L 4544-3) Lab Interpretation (test Abnormal code = 18515-6) [facility] [id number] 16:13:19 Test Item Value Reference Range Interpretation Comments Hemoglobin (test code = 10.6 See_Comment L [Au tomated message] 786-4) The system [employer] generated this result transmitted ref erence range: 12.0 - 1 5.0 GM/DL. The refe rence range was not u sed to interpret this result as normal/abnor mal. Hematocrit (test code = 31.0 % 36.0-45.0 L 4544-3) Lab Interpretation (test Abnormal code = 90134-1) [facility]Stat [id number] 16:13:19 Test Item Value Reference Range Interpretation Comments Hemoglobin (test code = 10.6 See_Comment L [Au tomated message] 786-4) The system [employer] generated this result transmitted ref erence range: 12.0 - 1 5.0 GM/DL. The refe rence range was not u sed to interpret this result as normal/abnor mal. Hematocrit (test code = 31.0 % 36.0-45.0 L 4544-3) Lab Interpretation (test Abnormal code = 89877-5) [facility]&H[facility] - STAT [id number] 16:13:19 Test Item Value Reference Range Interpretation Comments HEMOGLOBIN (BEAKER) (test code = 10.6 GM/DL 12.0-15.0 L 410) HEMATOCRIT (BEAKER) (test code = 31.0 % 36.0-45.0 L 411) Glucose-Stat [id number] 16:13:18 Test Item Value Reference Range Interpretation Comments Glucose (test code = 2345-7) 205 mg/dL 70-110 H Lab Interpretation (test code = Abnormal 06995-9) [facility] [id number] 16:13:18 Test Item Value Reference Range Interpretation Comments Sodium (test code = 2951-2) 134 meq/L 136-145 L Lab Interpretation (test code = Abnormal 15189-2) [facility] [id number] 16:13:18 Test Item Value Reference Range Interpretation Comments Glucose (test code = 2345-7) 205 mg/dL 70-110 H Lab Interpretation (test code = Abnormal 69762-5) [facility] [id number] 16:13:18 Test Item Value Reference Range Interpretation Comments Sodium (test code = 2951-2) 134 meq/L 136-145 L Lab Interpretation (test code = Abnormal 89426-9) [facility] [id number] 16:13:18 Test Item Value Reference Range Interpretation Comments Glucose (test code = 2345-7) 205 mg/dL 70-110 H Lab Interpretation (test code = Abnormal 39982-6) [facility] [id number] 16:13:18 Test Item Value Reference Range Interpretation Comments Sodium (test code = 2951-2) 134 meq/L 136-145 L Lab Interpretation (test code = Abnormal 00348-5) [facility] [id number] 16:13:18 Test Item Value Reference Range Interpretation Comments Glucose (test code = 2345-7) 205 mg/dL 70-110 H Lab Interpretation (test code = Abnormal 88186-0) [facility] [id number] 16:13:18 Test Item Value Reference Range Interpretation Comments Sodium (test code = 2951-2) 134 meq/L 136-145 L Lab Interpretation (test code = Abnormal 73851-0) [facility] [id number] 16:13:18 Test Item Value Reference Range Interpretation Comments Glucose (test code = 2345-7) 205 mg/dL 70-110 H Lab Interpretation (test code = Abnormal 73308-2) [facility] [id number] 16:13:18 Test Item Value Reference Range Interpretation Comments Sodium (test code = 2951-2) 134 meq/L 136-145 L Lab Interpretation (test code = Abnormal 33915-6) [facility] Ehi2697-09-03 16:13:18 Test Item Value Reference Range Interpretation Comments Glucose (test code = 2345-7) 205 mg/dL 70-110 H Lab Interpretation (test code = Abnormal 09719-4) [facility] [id number] 16:13:18 Test Item Value Reference Range Interpretation Comments Sodium (test code = 2951-2) 134 meq/L 136-145 L Lab Interpretation (test code = Abnormal 52971-9) [facility] [id number] 16:13:18 Test Item Value Reference Range Interpretation Comments Glucose (test code = 2345-7) 205 mg/dL 70-110 H Lab Interpretation (test code = Abnormal 25546-3) [facility] [id number] 16:13:18 Test Item Value Reference Range Interpretation Comments Sodium (test code = 2951-2) 134 meq/L 136-145 L Lab Interpretation (test code = Abnormal 92619-7) [facility] [id number] 16:13:18 Test Item Value Reference Range Interpretation Comments Glucose (test code = 2345-7) 205 mg/dL 70-110 H Lab Interpretation (test code = Abnormal 19981-9) [facility] [id number] 16:13:18 Test Item Value Reference Range Interpretation Comments Sodium (test code = 2951-2) 134 meq/L 136-145 L Lab Interpretation (test code = Abnormal 98181-2) [facility] [id number] 16:13:18 Test Item Value Reference Range Interpretation Comments Glucose (test code = 2345-7) 205 mg/dL 70-110 H Lab Interpretation (test code = Abnormal 35470-8) [facility] [id number] 16:13:18 Test Item Value Reference Range Interpretation Comments Sodium (test code = 2951-2) 134 meq/L 136-145 L Lab Interpretation (test code = Abnormal 70851-3) [facility] [id number] 16:13:18 Test Item Value Reference Range Interpretation Comments Glucose (test code = 2345-7) 205 mg/dL 70-110 H Lab Interpretation (test code = Abnormal 02338-1) [facility] [id number] 16:13:18 Test Item Value Reference Range Interpretation Comments Sodium (test code = 2951-2) 134 meq/L 136-145 L Lab Interpretation (test code = Abnormal 41418-2) [facility]Stat [id number] 16:13:18 Test Item Value Reference Range Interpretation Comments Glucose (test code = 2345-7) 205 mg/dL 70-110 H Lab Interpretation (test code = Abnormal 34243-3) [facility] [id number] 16:13:18 Test Item Value Reference Range Interpretation Comments Sodium (test code = 2951-2) 134 meq/L 136-145 L Lab Interpretation (test code = Abnormal 69243-5) [facility] Ukr7500-14-02 16:13:18 Test Item Value Reference Range Interpretation Comments Glucose (test code = 2345-7) 205 mg/dL 70-110 H Lab Interpretation (test code = Abnormal 85186-6) [facility] [id number] 16:13:18 Test Item Value Reference Range Interpretation Comments Sodium (test code = 2951-2) 134 meq/L 136-145 L Lab Interpretation (test code = Abnormal 57492-0) [facility] [id number] 16:13:18 Test Item Value Reference Range Interpretation Comments SODIUM (BEAKER) (test code = 381) 134 meq/L 136-145 L GLUCOSE-STAT [id number] 16:13:18 Test Item Value Reference Range Interpretation Comments GLUCOSE RANDOM (BEAKER) (test code 205 mg/dL 70-110 H = 652) BLOOD GAS, [id number] 16:13:17 Test Item Value Reference Range Interpretation [...] (BEAKER) (test code = 1819) 60.0 Potassium-Stat [id number] 16:11:46 Test Item Value Reference Range Interpretation Comments Potassium (test code = 2823-3) 4.5 meq/L 3.6-5.5 Lab Interpretation (test code = Normal 50612-9) [facility] [id number] 16:11:46 Test Item Value Reference Range Interpretation Comments Potassium (test code = 2823-3) 4.5 meq/L 3.6-5.5 Lab Interpretation (test code = Normal 82168-9) [facility] [id number] 16:11:46 Test Item Value Reference Range Interpretation Comments Potassium (test code = 2823-3) 4.5 meq/L 3.6-5.5 Lab Interpretation (test code = Normal 32858-4) [facility] [id number] 16:11:46 Test Item Value Reference Range Interpretation Comments Potassium (test code = 2823-3) 4.5 meq/L 3.6-5.5 Lab Interpretation (test code = Normal 51191-4) [facility] [id number] 16:11:46 Test Item Value Reference Range Interpretation Comments Potassium (test code = 2823-3) 4.5 meq/L 3.6-5.5 Lab Interpretation (test code = Normal 07133-2) [facility] [id number] 16:11:46 Test Item Value Reference Range Interpretation Comments Potassium (test code = 2823-3) 4.5 meq/L 3.6-5.5 Lab Interpretation (test code = Normal 31861-1) [facility] Swj7115-04-93 16:11:46 Test Item Value Reference Range Interpretation Comments Potassium (test code = 2823-3) 4.5 meq/L 3.6-5.5 Lab Interpretation (test code = Normal 02695-1) [facility] [id number] 16:11:46 Test Item Value Reference Range Interpretation Comments Potassium (test code = 2823-3) 4.5 meq/L 3.6-5.5 Lab Interpretation (test code = Normal 32656-9) [facility] [id number] 16:11:46 Test Item Value Reference Range Interpretation Comments Potassium (test code = 2823-3) 4.5 meq/L 3.6-5.5 Lab Interpretation (test code = Normal 19354-8) [facility] [id number] 16:11:46 Test Item Value Reference Range Interpretation Comments Potassium (test code = 2823-3) 4.5 meq/L 3.6-5.5 Lab Interpretation (test code = Normal 55065-8) [facility] [id number] 16:11:46 Test Item Value Reference Range Interpretation Comments Potassium (test code = 2823-3) 4.5 meq/L 3.6-5.5 Lab Interpretation (test code = Normal 57078-1) [facility] [id number] 16:11:46 Test Item Value Reference Range Interpretation Comments Potassium (test code = 2823-3) 4.5 meq/L 3.6-5.5 Lab Interpretation (test code = Normal 53216-7) [facility] [id number] 16:11:46 Test Item Value Reference Range Interpretation Comments POTASSIUM (BEAKER) (test code = 4.5 meq/L 3.6-5.5 379) CALCIUM, [id number] 16:11:08 Test Item Value Reference Range Interpretation Comments CALCIUM IONIZED (BEAKER) (test 1.16 mmol/L 1.12-1.27 code = 698) PH, BLOOD (BEAKER) (test code = 7.44 1810) Manual Gufsmiavasrx8781-93-80 16:00:23 Test Item Value Reference Range Interpretation [...] Poikilocytes (test code = 1+ few 966) [place] Cells (test code = 1+ few 474) Artifact (test code = Present 3432) Platelet Conc (test code Decreased = 3438) BRANDI (test code = BRANDI) Anthropologist ID - Liza Lu comments: Slide comments: Lab Interpretation (test Abnormal code = 52723-8) [facility] California[facility] Dvnnqdloskyb0401-81-49 16:00:23 Test Item Value Reference Range Interpretation [...] = 3438) BRANDI (test code = BRANDI) Anthropologist ID - Liza Lu comments: Slide comments: Lab Interpretation (test Abnormal code = 80061-4) [facility] Hdqrphxwpdnw6054-37-62 16:00:23 Test Item Value Reference Range Interpretation [...] Poikilocytes (test code = 1+ few 966) [place] Cells (test code = 1+ few 474) Artifact (test code = Present 3432) Platelet Conc (test code Decreased = 3438) BRANDI (test code = BRANDI) Anthropologist ID - Liza Lu comments: Slide comments: Lab Interpretation (test Abnormal code = 91388-3) [facility] Fiptlxpjreek0998-32-85 16:00:23 Test Item Value Reference Range Interpretation [...] Poikilocytes (test code = 1+ few 966) [place] Cells (test code = 1+ few 474) Artifact (test code = Present 3432) Platelet Conc (test code Decreased = 3438) BRANDI (test code = BRANDI) Anthropologist ID - Liza Lu comments: Slide comments: Lab Interpretation (test Abnormal code = 88100-0) [facility] Crjeqmacofvp5351-87-04 16:00:23 Test Item Value Reference Range Interpretation [...] = 3438) BRANDI (test code = BRANDI) Anthropologist ID - Liza Lu comments: Slide comments: Lab Interpretation (test Abnormal code = 92591-7) [facility] Khomcsdraect9946-67-13 16:00:23 Test Item Value Reference Range Interpretation [...] = 3438) BRANDI (test code = BRANDI) Anthropologist ID - Liza Tabitha comments: Slide comments: Lab Interpretation (test Abnormal code = 80643-4) [facility] Zwqhvcvubool7258-42-30 16:00:23 Test Item Value Reference Range Interpretation [...] Poikilocytes (test code = 1+ few 966) [place] Cells (test code = 1+ few 474) Artifact (test code = Present 3432) Platelet Conc (test code Decreased = 3438) BRANDI (test code = BRANDI) Anthropologist ID - Liza Lu comments: Slide comments: Lab Interpretation (test Abnormal code = 66904-2) [facility] Mbrmjywjbfsc5195-20-23 16:00:23 Test Item Value Reference Range Interpretation [...] = 3438) BRANDI (test code = BRANDI) Anthropologist ID - Liza Lu comments: Slide comments: Lab Interpretation (test Abnormal code = 93949-0) [facility] Deqijjfczrlg5251-14-56 16:00:23 Test Item Value Reference Range Interpretation [...] = 3438) BRANDI (test code = BRANDI) Anthropologist ID - Liza Lu comments: Slide comments: Lab Interpretation (test Abnormal code = 07181-4) [facility] Unqzttxhxnen6678-57-76 16:00:23 Test Item Value Reference Range Interpretation [...] = 3438) BRANDI (test code = BRANDI) Anthropologist ID - Liza Lu comments: Slide comments: Lab Interpretation (test Abnormal code = 34554-3) [facility] Gqeegyxrafvi1227-65-24 16:00:23 Test Item Value Reference Range Interpretation [...] Poikilocytes (test code = 1+ few 966) [place] Cells (test code = 1+ few 474) Artifact (test code = Present 3432) Platelet Conc (test code Decreased = 3438) BRANDI (test code = BRANDI) Anthropologist ID - Liza Tabitha comments: Slide comments: Lab Interpretation (test Abnormal code = 67657-0) [facility] Tzzrmbwbumuj0300-87-12 16:00:23 Test Item Value Reference Range Interpretation [...] = 3438) BRANDI (test code = BRANDI) Anthropologist ID - Liza SimmsHomar comments: Slide comments: Lab Interpretation (test Abnormal code = 69411-8) [facility](CELLAVISION MANUAL DIFF)2021-06-18 16:00:23 Test Item Value Reference [...] CONCENTRATION Decreased (CELLAVISION)(BEAKER) (test code = 3438) Anthropologist ID - Liza Lu comments: Slide comments:RAD, CHEST, 1 VIEW, NON [id number] 15:58:00Reason for exam:->Post-opShould this be performed at the bedside?->Yes [facility] 1955 Sex: FFINAL REPORT CHEST AP PORTABLE COMPARISON STUDY: 06/10/2021 History provided: Postopevaluation ET tube in place with tip midway between clavicles and marlon. NG tip in the stomach. Right jugular Hilbert-Blayne catheter with tip in the right main pulmonary artery. Chest tubes with no pneumothorax. Mild right basilar atelectasis with trace right pleural effusion. Lungs otherwise grossly clear and vascularity normal. Signed: Wero Alvarez MDReport Verified Date/Time: 06/18/2021 15:58:54 Reading Location: [facility] Diagnostic Imaging Reading Room - [facility] 1.310.12 C METABOLIC [id number] 15:57:50 Test Item Value Reference Range Interpretation [...] S NOT APPLICABLE FOR DIALYSIS PATIEN TS. Anthropologist ID - HIEN TLzykqqtjg-PLTS1444-14-17 15:57:19 Test Item Value Reference Range Interpretation Comments Potassium (test code = 2823-3) 4.8 meq/L 3.5-5.1 Lab Interpretation (test code = Normal 88879-6) [facility]RSCL4177-91-63 15:57:19 Test Item Value Reference Range Interpretation Comments Potassium (test code = 2823-3) 4.8 meq/L 3.5-5.1 Lab Interpretation (test code = Normal 76717-8) [facility]-TKRJ6010-20-94 15:57:19 Test Item Value Reference Range Interpretation Comments Potassium (test code = 2823-3) 4.8 meq/L 3.5-5.1 Lab Interpretation (test code = Normal 94652-0) [facility]-LFBC3531-66-58 15:57:19 Test Item Value Reference Range Interpretation Comments Potassium (test code = 2823-3) 4.8 meq/L 3.5-5.1 Lab Interpretation (test code = Normal 26929-9) [facility]-NGZL0190-01-20 15:57:19 Test Item Value Reference Range Interpretation Comments Potassium (test code = 2823-3) 4.8 meq/L 3.5-5.1 Lab Interpretation (test code = Normal 05870-0) [facility]ODSX8102-36-89 15:57:19 Test Item Value Reference Range Interpretation Comments Potassium (test code = 2823-3) 4.8 meq/L 3.5-5.1 Lab Interpretation (test code = Normal 01417-1) [facility]-NYMJ1978-06-94 15:57:19 Test Item Value Reference Range Interpretation Comments Potassium (test code = 2823-3) 4.8 meq/L 3.5-5.1 Lab Interpretation (test code = Normal 21507-6) [facility]-RFKF9147-94-74 15:57:19 Test Item Value Reference Range Interpretation Comments Potassium (test code = 2823-3) 4.8 meq/L 3.5-5.1 Lab Interpretation (test code = Normal 69981-8) [facility]BTG[facility] 15:57:19 Test Item Value Reference Range Interpretation Comments Potassium (test code = 2823-3) 4.8 meq/L 3.5-5.1 Lab Interpretation (test code = Normal 57295-1) [facility]VCMR[facility]13-09-[facility] 15:57:19 Test Item Value Reference Range Interpretation Comments Potassium (test code = 2823-3) 4.8 meq/L 3.5-5.1 Lab Interpretation (test code = Normal 83425-7) [facility]UIMF6532-33-30 15:57:19 Test Item Value Reference Range Interpretation Comments Potassium (test code = 2823-3) 4.8 meq/L 3.5-5.1 Lab Interpretation (test code = Normal 53889-2) [facility]PAIT0143-06-54 15:57:19 Test Item Value Reference Range Interpretation Comments Potassium (test code = 2823-3) 4.8 meq/L 3.5-5.1 Lab Interpretation (test code = Normal 43754-9) [facility]2022-[facility]-17 15:57:19 Test Item Value Reference Range Interpretation Comments POTASSIUM (BEAKER) (test code = 4.8 meq/L 3.5-5.1 379) UAQBPTIZJG2971-94-57 15:57:19 Test Item Value Reference Range Interpretation Comments PHOSPHORUS (BEAKER) (test code = 4.9 mg/dL 2.3-4.7 H 604) Anthropologist ID - HIEN XINDUJLVZF0044-61-95 15:57:18 Test Item Value Reference Range Interpretation Comments MAGNESIUM (BEAKER) (test code = 2.6 mg/dL 1.6-2.6 627) Anthropologist ID - HIEN Carmichaelepjoyce hcwleo7479-19-10 15:44:00 Test Item Value Reference Range Interpretation Comments Unit ABO (test code = O Neg 2874285) UNIT NUMBER (test code = [id number] 934-0) Status (test code = RETURNED FROM ISSUE 3773955) Blood Bank Product (test FFP code = 2263) PRODUCT CODE (test code = [id number] 933-2) [facility] feabpw6696-44-83 15:44:00 Test Item Value Reference Range Interpretation Comments Unit ABO (test code = O Neg 7954201) UNIT NUMBER (test code = [id number] 934-0) Status (test code = RETURNED FROM ISSUE 5542314) Blood Bank Product (test FFP code = 2263) PRODUCT CODE (test code = [id number] 933-2) [facility] xuilxb0416-87-36 15:44:00 Test Item Value Reference Range Interpretation Comments Unit ABO (test code = O Neg 4461918) UNIT NUMBER (test code = [id number] 934-0) Status (test code = RETURNED FROM ISSUE 8456509) Blood Bank Product (test FFP code = 2263) PRODUCT CODE (test code = [id number] 933-2) [facility]2022-03-17 15:44:00 Test Item Value Reference Range Interpretation Comments Unit ABO (test code = O Neg 4382046) UNIT NUMBER (test code = [id number] 934-0) Status (test code = RETURNED FROM ISSUE 3755069) Blood Bank Product (test FFP code = 2263) PRODUCT CODE (test code = P8800I16 933-2) [facility] wpuccr4590-36-18 15:44:00 Test Item Value Reference Range Interpretation Comments Unit ABO (test code = O Neg 7180397) UNIT NUMBER (test code = [id number] 934-0) Status (test code = RETURNED FROM ISSUE 0965604) Blood Bank Product (test FFP code = 2263) PRODUCT CODE (test code = [id number] 933-2) [facility] utkyth6145-33-31 15:44:00 Test Item Value Reference Range Interpretation Comments Unit ABO (test code = O Neg 2613886) UNIT NUMBER (test code = [id number] 934-0) Status (test code = RETURNED FROM ISSUE 7370694) Blood Bank Product (test FFP code = 2263) PRODUCT CODE (test code = [id number] 933-2) [facility] zgqgod5717-90-14 15:44:00 Test Item Value Reference Range Interpretation Comments Unit ABO (test code = O Neg 6973266) UNIT NUMBER (test code = [id number] 934-0) Status (test code = RETURNED FROM ISSUE 3284189) Blood Bank Product (test FFP code = 2263) PRODUCT CODE (test code = [id number] 933-2) [facility] zassui0656-96-56 15:44:00 Test Item Value Reference Range Interpretation Comments Unit ABO (test code = O Neg 3886352) UNIT NUMBER (test code = [id number] 934-0) Status (test code = RETURNED FROM ISSUE [id number]) Blood Bank Product (test FFP code = 2263) PRODUCT CODE (test code = I9481R31 933-2) [facility] [id number] 15:44:00 Test Item Value Reference Range Interpretation Comments Unit ABO (test code = O Neg [id number]) UNIT NUMBER (test code = [id number] 934-0) Status (test code = RETURNED FROM ISSUE 7861781) Blood Bank Product (test FFP code = 2263) PRODUCT CODE (test code = F0869Y32 933-2) [facility] [id number] 15:44:00 Test Item Value Reference Range Interpretation Comments Unit ABO (test code = O Neg [id number]) UNIT NUMBER (test code = [id number] 934-0) Status (test code = RETURNED FROM ISSUE 6328364) Blood Bank Product (test FFP code = 2263) PRODUCT CODE (test code = L7612P35 933-2) [facility] [id number] 15:44:00 Test Item Value Reference Range Interpretation Comments Unit ABO (test code = O Neg 9022646) UNIT NUMBER (test code = [id number] 934-0) Status (test code = RETURNED FROM ISSUE 15100613) Blood Bank Product (test FFP code = 2263) PRODUCT CODE (test code = F0438X71 933-2) [facility] mydvgy6071-00-16 15:44:00 Test Item Value Reference Range Interpretation Comments Unit ABO (test code = O Neg [id number]) UNIT NUMBER (test code = [id number] 934-0) Status (test code = RETURNED FROM ISSUE 4599222) Blood Bank Product (test FFP code = 2263) PRODUCT CODE (test code = C9568X26 933-2) [facility] 15:32:33 Test Item Value Reference Range Interpretation Comments PARTIAL THROMBOPLASTIN TIME 37.6 seconds 22.5-36.0 H (BEAKER) (test code = 760) PROTHROMBIN TIME/[id number] 15:31:52 Test Item Value Reference Range Interpretation Comments PROTIME (BEAKER) 17.9 seconds 11.9-14.2 H (test code = 759) INR (BEAKER) (test 1.50 See_Comment [Automat ed message] code = 370) The system [employer] generated this result transmitted ref erence range: <=5.90. The reference range was not used to int erpret this result as normal/abnormal . RECOMMENDED COUMADIN/WARFARIN INR THERAPY RANGESSTANDARD DOSE: 2.0 - 3.0 Includes: PROPHYLAXIS for venous thrombosis, systemic embolization; TREATMENT for venous thrombosis and/or pulmonary embolus.HIGH RISK: Target INR is 2.5-3.5 for patients with mechanical heart valves.CBC with platelet count + automated [id number] 15:24:09 Test Item Value Reference Range Interpretation Comments WBC (test code = 6690-2) 16.2 See_Comment H [A utomated message] The system [employer] generated this result transmitted ref erence range: 3.5 - 10 .5 K/L. The refe rence range was not u sed to interpret this result as normal/abnor mal. RBC (test code = 789-8) 3.33 See_Comment L [Au tomated message] The system [employer] generated this result transmitted ref erence range: 3.93 - 5 .22 M/L. The refe rence range was not u sed to interpret this result as normal/abnor mal. MCHC (test code = 786-4) 31.8 See_Comment L [A utomated message] The system [employer] generated this result transmitted ref erence range: [...] L [Aut omated message] 777-3) The system [employer] generated this result transmitted ref erence range: 150 - 45 0 K/CU MM. The referen ce range was not u sed to interpret this result as normal/abnor mal. MPV (test code = 10.3 fL 9.4-12.3 31214-2) nRBC (test code = 413) 0 See_Comment [Aut omated message] The system [employer] generated this result transmitted ref erence range: 0 - 0 /1 00 WBC. The refere nce range was not u sed to interpret this result as normal/abnor mal. Lab Interpretation (test Abnormal code = 81534-7) [facility] with platelet count + automated [id number] 15:24:09 Test Item Value Reference Range Interpretation Comments WBC (test code = 6690-2) 16.2 See_Comment H [A utomated message] The system [employer] generated this result transmitted ref erence range: 3.5 - 10 .5 K/L. The refe rence range was not u sed to interpret this result as normal/abnor mal. RBC (test code = 789-8) 3.33 See_Comment L [Au tomated message] The system [employer] generated this result transmitted ref erence range: 3.93 - 5 .22 M/L. The refe rence range was not u sed to interpret this result as normal/abnor mal. MCHC (test code = 786-4) 31.8 See_Comment L [A utomated message] The system [employer] generated this result transmitted ref erence range: [...] L [Aut omated message] 777-3) The system [employer] generated this result transmitted ref erence range: 150 - 45 0 K/CU MM. The referen ce range was not u sed to interpret this result as normal/abnor mal. MPV (test code = 10.3 fL 9.4-12.3 76025-7) nRBC (test code = 413) 0 See_Comment [Aut omated message] The system [employer] generated this result transmitted ref erence range: 0 - 0 /1 00 WBC. The refere nce range was not u sed to interpret this result as normal/abnor mal. Lab Interpretation (test Abnormal code = 03693-8) [facility] W/PLT COUNT & AUTO [id number] 15:24:09 Test Item Value Reference Range Interpretation [...] (BEAKER) (test code = 413) Hemoglobin and dumxepgomj7186-55-13 15:23:11 Test Item Value Reference Range Interpretation Comments Hemoglobin (test code = 10.0 See_Comment L [Au tomated message] 786-4) The system [employer] generated this result transmitted ref erence range: 11.2 - 1 5.7 GM/DL. The refe rence range was not u sed to interpret this result as normal/abnor mal. Hematocrit (test code = 31.4 % 34.1-44.9 L 4544-3) Lab Interpretation (test Abnormal code = 27070-8) [facility] California[facility]MOGLOBIN AND [id number] 15:23:11 Test Item Value Reference Range Interpretation Comments HEMOGLOBIN (BEAKER) (test code = 10.0 GM/DL 11.2-15.7 L 410) HEMATOCRIT (BEAKER) (test code = 31.4 % 34.1-44.9 L 411) BLOOD GAS, [id number] 15:19:54 Test Item Value Reference Range Interpretation [...] = 1819) 75.0 HGB/HCT (H&H) - STAT [id number] 15:19:53 Test Item Value Reference Range Interpretation Comments HEMOGLOBIN (BEAKER) (test code = 10.6 GM/DL 12.0-15.0 L 410) HEMATOCRIT (BEAKER) (test code = 31.0 % 36.0-45.0 L 411) GLUCOSE-STAT [id number] 15:19:46 Test Item Value Reference Range Interpretation Comments GLUCOSE RANDOM (BEAKER) (test code 200 mg/dL 70-110 H = 652) OXYGEN SATURATION, [id number] 15:18:32 Test Item Value Reference Range Interpretation Comments O2 SATURATION (MEASURED) (BEAKER) 83.4 % (test code = 1455) POTASSIUM-STAT [id number] 15:18:10 Test Item Value Reference Range Interpretation Comments POTASSIUM (BEAKER) (test code = 4.5 meq/L 3.6-5.5 379) SODIUM NA-STAT [id number] 15:18:09 Test Item Value Reference Range Interpretation Comments SODIUM (BEAKER) (test code = 381) 136 meq/L 136-145 CALCIUM, [id number] 15:18:08 Test Item Value Reference Range Interpretation Comments CALCIUM IONIZED (BEAKER) (test 1.14 mmol/L 1.12-1.27 code = 698) PH, BLOOD (BEAKER) (test code = 7.39 1810) POC ACTIVATED CLOTTING [id number] 14:20:47 Test Item Value Reference Range Interpretation Comments Activated Clotting Time 130 sec : 74 -137 seconds, (test code = 441) Baseline: TESTED AT [facility] [address] [facility] [place], [address]: Anthropologist/Techni kelle ID = [id number] for Me ndoza, [place] [facility] ACTIVATED CLOTTING [id number] 14:20:47 Test Item Value Reference Range Interpretation Comments Activated Clotting Time 130 sec : 74 -137 seconds, (test code = 441) Baseline: TESTED AT [address], [address]: Anthropologist/Techni kelle ID = [id number] for Me ndoza, Rocky CONTRERAS [facility] ACTIVATED CLOTTING [id number] 14:20:47 Test Item Value Reference Range Interpretation Comments Activated Clotting Time 130 sec : 74 -137 seconds, (test code = 441) Baseline: TESTED AT [address], [address]: Anthropologist/Techni kelle ID = [id number] for Me ndoza, [place] [facility] ACTIVATED CLOTTING [id number] 14:20:47 Test Item Value Reference Range Interpretation Comments Activated Clotting Time 130 sec : 74 -137 seconds, (test code = 441) Baseline: TESTED AT [address], [address]: Anthropologist/Techni kelle ID = [id number] for Me ndoza, [place] [facility] ACTIVATED CLOTTING [id number] 14:20:47 Test Item Value Reference Range Interpretation Comments Activated Clotting Time 130 sec : 74 -137 seconds, (test code = 441) Baseline: TESTED AT [address], [address]: Anthropologist/Techni kelle ID = [id number] for Me ndoza, [place] [facility] ACTIVATED CLOTTING [id number] 14:20:47 Test Item Value Reference Range Interpretation Comments Activated Clotting Time 130 sec : 74 -137 seconds, (test code = 441) Baseline: TESTED AT [address], [address]: Anthropologist/Techni kelle ID = [id number] for Me ndoza, [place] [facility] ACTIVATED CLOTTING [id number] 14:20:47 Test Item Value Reference Range Interpretation Comments Activated Clotting Time 130 sec : 74 -137 seconds, (test code = 441) Baseline: TESTED AT [address], [address]: Anthropologist/Techni kelle ID = [id number] for Me ndoza, [place] [facility] ACTIVATED CLOTTING [id number] 14:20:47 Test Item Value Reference Range Interpretation Comments Activated Clotting Time 130 sec : 74 -137 seconds, (test code = 441) Baseline: TESTED AT [address], [address]: Anthropologist/Techni kelle ID = [id number] for Me ndoza, Rocky CONTRERAS [facility] ACTIVATED CLOTTING [id number] 14:20:47 Test Item Value Reference Range Interpretation Comments Activated Clotting Time 130 sec : 74 -137 seconds, (test code = 441) Baseline: TESTED AT [address], [address]: Anthropologist/Techni kelle ID = [id number] for Me ndoza, [place] [facility] ACTIVATED CLOTTING [id number] 14:20:47 Test Item Value Reference Range Interpretation Comments Activated Clotting Time 130 sec : 74 -137 seconds, (test code = 441) Baseline: TESTED AT [address], [address]: Anthropologist/Techni kelle ID = [id number] for Me ndoza, [place] [facility] ACTIVATED CLOTTING [id number] 14:20:47 Test Item Value Reference Range Interpretation Comments Activated Clotting Time 130 sec : 74 -137 seconds, (test code = 441) Baseline: TESTED AT [address], [address]: Anthropologist/Techni kelle ID = [id number] for Me ndoza, [place] [facility] ACTIVATED CLOTTING [id number] 14:20:47 Test Item Value Reference Range Interpretation Comments Activated Clotting Time 130 sec : 74 -137 seconds, (test code = 441) Baseline: TESTED AT [address], [address]: Anthropologist/Techni kelle ID = [id number] for Me ndoza, [place] [facility]AS [facility]PO[facility]-[id number] 14:20:47 Test Item Value Reference Range Interpretation Comments ACTIVATED CLOTTING TIME 130 sec : 74 -137 seconds, (BEAKER) (test code = Baseli ne: TESTED AT 441) [address], [address]: Anthropologist/Techni kelle ID = [id number] for Me ndoza, Rocky [id number] 14:20:46 Test Item Value Reference Range Interpretation Comments ACTIVATED CLOTTING TIME 577 sec : 74 -137 seconds, (BEAKER) (test code = Baseli ne: TESTED AT 441) [address], [address]: Anthropologist/Techni kelle ID = [id number] for Rocky Danielle [id number] 14:20:45 Test Item Value Reference Range Interpretation Comments ACTIVATED CLOTTING TIME 743 sec : 74 -137 seconds, (BEAKER) (test code = Baseli ne: TESTED AT 441) [address], [address]: Anthropologist/Techni kelle ID = [id number] for Rocky Danielle [id number] 14:20:45 Test Item Value Reference Range Interpretation Comments ACTIVATED CLOTTING TIME 618 sec : 74 -137 seconds, (BEAKER) (test code = Baseli ne: TESTED AT 441) [address], [address]: Anthropologist/Techni kelle ID = [id number] for Rocky Danielle [id number] 14:20:44 Test Item Value Reference Range Interpretation Comments ACTIVATED CLOTTING TIME 547 sec : 74 -137 seconds, (BEAKER) (test code = Baseli ne: TESTED AT 441) [address], [address]: Anthropologist/Techni kelle ID = [id number] for Rocky Danielle [id number] 14:20:12 Test Item Value Reference Range Interpretation Comments ACTIVATED CLOTTING TIME 809 sec : 74 -137 seconds, (BEAKER) (test code = Baseli ne: TESTED AT 441) [address], [facility] 30: Anthropologist/Techni kelle ID = [id number] for Rocky Danielle [id number] 13:49:05 Test Item Value Reference Range Interpretation Comments PARTIAL THROMBOPLASTIN TIME 38.3 seconds 22.5-36.0 H (BEAKER) (test code = 760) [id number] 13:48:43 Test Item Value Reference Range Interpretation Comments Fibrinogen (test code = 3255-7) 246 mg/dl 225-434 Lab Interpretation (test code = Normal 69306-9) [facility] 13:48:43 Test Item Value Reference Range Interpretation Comments Fibrinogen (test code = 3255-7) 246 mg/dl 225-434 Lab Interpretation (test code = Normal 26093-6) [place] 237072-03-17 13:48:43 Test Item Value Reference Range Interpretation Comments Fibrinogen (test code = 3255-7) 246 mg/dl 225-434 Lab Interpretation (test code = Normal 18481-2) [facility]2022-03-17 13:48:43 Test Item Value Reference Range Interpretation Comments Fibrinogen (test code = 3255-7) 246 mg/dl 225-434 Lab Interpretation (test code = Normal 88308-4) [facility]2022-03-17 13:48:43 Test Item Value Reference Range Interpretation Comments Fibrinogen (test code = 3255-7) 246 mg/dl 225-434 Lab Interpretation (test code = Normal 00775-6) [facility]2022-03-17 13:48:43 Test Item Value Reference Range Interpretation Comments Fibrinogen (test code = 3255-7) 246 mg/dl 225-434 Lab Interpretation (test code = Normal 06169-9) [facility]2022-03-17 13:48:43 Test Item Value Reference Range Interpretation Comments Fibrinogen (test code = 3255-7) 246 mg/dl 225-434 Lab Interpretation (test code = Normal 39690-8) [facility]2022-03-17 13:48:43 Test Item Value Reference Range Interpretation Comments Fibrinogen (test code = 3255-7) 246 mg/dl 225-434 Lab Interpretation (test code = Normal 10794-8) [facility]2022-03-17 13:48:43 Test Item Value Reference Range Interpretation Comments Fibrinogen (test code = 3255-7) 246 mg/dl 225-434 Lab Interpretation (test code = Normal 33247-9) [place] 237072-03-17 13:48:43 Test Item Value Reference Range Interpretation Comments Fibrinogen (test code = 3255-7) 246 mg/dl 225-434 Lab Interpretation (test code = Normal 21986-1) [place] 237072-03-17 13:48:43 Test Item Value Reference Range Interpretation Comments Fibrinogen (test code = 3255-7) 246 mg/dl 225-434 Lab Interpretation (test code = Normal 03658-9) [facility] 13:48:43 Test Item Value Reference Range Interpretation Comments Fibrinogen (test code = 3255-7) 246 mg/dl 225-434 Lab Interpretation (test code = Normal 34385-7) [facility]2022-03-17 13:48:43 Test Item Value Reference Range Interpretation Comments FIBRINOGEN LEVEL (BEAKER) (test 246 mg/dl 225-434 code = 658) PROTHROMBIN TIME/[id number] 13:48:05 Test Item Value Reference Range Interpretation Comments PROTIME (BEAKER) 19.5 seconds 11.9-14.2 H (test code = 759) INR (BEAKER) (test 1.67 See_Comment [Automat ed message] code = 370) The system [employer] generated this result transmitted ref erence range: <=5.90. The reference range was not used to int erpret this result as normal/abnormal . RECOMMENDED COUMADIN/WARFARIN INR THERAPY RANGESSTANDARD DOSE: 2.0 - 3.0 Includes: PROPHYLAXIS for venous thrombosis, systemic embolization; TREATMENT for venous thrombosis and/or pulmonary embolus.HIGH RISK: Target INR is 2.5-3.5 for patients with mechanical heart valves.Platelet [id number] 13:39:36 Test Item Value Reference Range Interpretation Comments Platelets (test code 133 See_Comment L [Autom ated = 777-3) message] The system which generated this result transmit levi reference range : 150 - 450 K/CU MM. The reference range was not u sed to interpret th is result as normal/abnormal . BRANDI (test code = BRANDI) Anthropologist ID - [id number] Lab Interpretation Abnormal (test code = 30598-5) [facility] [id number] 13:39:36 Test Item Value Reference Range Interpretation Comments Platelets (test code 133 See_Comment L [Autom ated = 777-3) message] The system which generated this result transmit levi reference range : 150 - 450 K/CU MM. The reference range was not u sed to interpret th is result as normal/abnormal . BRANDI (test code = BRANDI) Anthropologist ID - [id number] Lab Interpretation Abnormal (test code = 79063-9) [facility] h[facility]km[facility]54[facility] 13:39:36 Test Item Value Reference Range Interpretation Comments Platelets (test code 133 See_Comment L [Autom ated = 777-3) message] The system which generated this result transmit levi reference range : 150 - 450 K/CU MM. The reference range was not u sed to interpret th is result as normal/abnormal . BRANDI (test code = BRANDI) Anthropologist ID - [id number] Lab Interpretation Abnormal (test code = 66228-5) [facility] [id number] 13:39:36 Test Item Value Reference Range Interpretation Comments Platelets (test code 133 See_Comment L [Autom ated = 777-3) message] The system which generated this result transmit levi reference range : 150 - 450 K/CU MM. The reference range was not u sed to interpret th is result as normal/abnormal . BRANDI (test code = BRANDI) Anthropologist ID - [id number] Lab Interpretation Abnormal (test code = 05048-3) [facility] [id number] 13:39:36 Test Item Value Reference Range Interpretation Comments Platelets (test code 133 See_Comment L [Autom ated = 777-3) message] The system which generated this result transmit levi reference range : 150 - 450 K/CU MM. The reference range was not u sed to interpret th is result as normal/abnormal . BRANDI (test code = BRANDI) Anthropologist ID - [id number] Lab Interpretation Abnormal (test code = 72516-7) [facility] [id number] 13:39:36 Test Item Value Reference Range Interpretation Comments Platelets (test code 133 See_Comment L [Autom ated = 777-3) message] The system which generated this result transmit levi reference range : 150 - 450 K/CU MM. The reference range was not u sed to interpret th is result as normal/abnormal . BRANDI (test code = BRANDI) Anthropologist ID - [id number] Lab Interpretation Abnormal (test code = 99103-1) [facility] [id number] 13:39:36 Test Item Value Reference Range Interpretation Comments Platelets (test code 133 See_Comment L [Autom ated = 777-3) message] The system which generated this result transmit levi reference range : 150 - 450 K/CU MM. The reference range was not u sed to interpret th is result as normal/abnormal . BRANDI (test code = BRANDI) Anthropologist ID - [id number] Lab Interpretation Abnormal (test code = 79756-6) [facility] [id number] 13:39:36 Test Item Value Reference Range Interpretation Comments Platelets (test code 133 See_Comment L [Autom ated = 777-3) message] The system which generated this result transmit levi reference range : 150 - 450 K/CU MM. The reference range was not u sed to interpret th is result as normal/abnormal . BRANDI (test code = BRANDI) Anthropologist ID - [id number] Lab Interpretation Abnormal (test code = 88791-9) [facility] uqywy4513-05-17 13:39:36 Test Item Value Reference Range Interpretation Comments Platelets (test code 133 See_Comment L [Autom ated = 777-3) message] The system which generated this result transmit levi reference range : 150 - 450 K/CU MM. The reference range was not u sed to interpret th is result as normal/abnormal . BRANDI (test code = BRANDI) Anthropologist ID - [id number] Lab Interpretation Abnormal (test code = 34335-5) [facility] [id number] 13:39:36 Test Item Value Reference Range Interpretation Comments Platelets (test code 133 See_Comment L [Autom ated = 777-3) message] The system which generated this result transmit levi reference range : 150 - 450 K/CU MM. The reference range was not u sed to interpret th is result as normal/abnormal . BRANDI (test code = BRANDI) Anthropologist ID - [id number] Lab Interpretation Abnormal (test code = 79100-9) [facility] [id number] 13:39:36 Test Item Value Reference Range Interpretation Comments Platelets (test code 133 See_Comment L [Autom ated = 777-3) message] The system which generated this result transmit levi reference range : 150 - 450 K/CU MM. The reference range was not u sed to interpret th is result as normal/abnormal . BRANDI (test code = BRANDI) Anthropologist ID - [id number] Lab Interpretation Abnormal (test code = 89901-3) [facility] [id number] 13:39:36 Test Item Value Reference Range Interpretation Comments Platelets (test code 133 See_Comment L [Autom ated = 777-3) message] The system which generated this result transmit levi reference range : 150 - 450 K/CU MM. The reference range was not u sed to interpret th is result as normal/abnormal . BRANDI (test code = BRANDI) Anthropologist ID - [id number] Lab Interpretation Abnormal (test code = 53676-2) [facility] [id number] 13:39:36 Test Item Value Reference Range Interpretation Comments PLATELET COUNT (BEAKER) (test 133 K/CU MM 150-450 L code = 756) Anthropologist ID - [id number]/HCT (H&H) - STAT [id number] 13:26:47 Test Item Value Reference Range Interpretation Comments HEMOGLOBIN (BEAKER) (test code = 7.4 GM/DL 12.0-15.0 L 410) HEMATOCRIT (BEAKER) (test code = 22.0 % 36.0-45.0 L 411) GLUCOSE-STAT [id number] 13:26:46 Test Item Value Reference Range Interpretation Comments GLUCOSE RANDOM (BEAKER) (test code 199 mg/dL 70-110 H = 652) SODIUM NA-STAT [id number] 13:26:46 Test Item Value Reference Range Interpretation Comments SODIUM (BEAKER) (test code = 381) 134 meq/L 136-145 L CALCIUM, [id number] 13:26:40 Test Item Value Reference Range Interpretation Comments CALCIUM IONIZED (BEAKER) (test 1.03 mmol/L 1.12-1.27 L code = 698) PH, BLOOD (BEAKER) (test code = 7.33 1810) BLOOD GAS, [id number] 13:26:34 Test Item Value Reference Range Interpretation [...] (BEAKER) (test code = 1819) 100.0 POTASSIUM-STAT [id number] 13:24:59 Test Item Value Reference Range Interpretation Comments POTASSIUM (BEAKER) (test code = 4.5 meq/L 3.6-5.5 379) PLATELET [id number] 13:18:08 Test Item Value Reference Range Interpretation Comments PLATELET COUNT (BEAKER) (test code 53 K/CU MM 150-450 L = 756) Anthropologist ID - [id number] ID - [id number] ID - [id number] 12:53:55 Test Item Value Reference Range Interpretation Comments PARTIAL THROMBOPLASTIN TIME > seconds 22.5-36.0 HH (BEAKER) (test code = 760) [id number] 12:36:04 Test Item Value Reference Range Interpretation Comments FIBRINOGEN LEVEL (BEAKER) (test 289 mg/dl 225-434 code = 658) PROTHROMBIN TIME/[id number] 12:35:28 Test Item Value Reference Range Interpretation Comments PROTIME (BEAKER) 25.4 seconds 11.9-14.2 H (test code = 759) INR (BEAKER) (test 2.35 See_Comment [Automat ed message] code = 370) The system [employer] generated this result transmitted ref erence range: <=5.90. The reference range was not used to int erpret this result as normal/abnormal . RECOMMENDED COUMADIN/WARFARIN INR THERAPY RANGESSTANDARD DOSE: 2.0 - 3.0 Includes: PROPHYLAXIS for venous thrombosis, systemic embolization; TREATMENT for venous thrombosis and/or pulmonary embolus.HIGH RISK: Target INR is 2.5-3.5 for patients with mechanical heart valves.HGB/HCT (H&H) - STAT [id number] 12:28:06 Test Item Value Reference Range Interpretation Comments HEMOGLOBIN (BEAKER) (test code = 9.3 GM/DL 12.0-15.0 L 410) HEMATOCRIT (BEAKER) (test code = 27.0 % 36.0-45.0 L 411) SODIUM NA-STAT [id number] 12:28:05 Test Item Value Reference Range Interpretation Comments SODIUM (BEAKER) (test code = 381) 133 meq/L 136-145 L GLUCOSE-STAT [id number] 12:28:05 Test Item Value Reference Range Interpretation Comments GLUCOSE RANDOM (BEAKER) (test code 189 mg/dL 70-110 H = 652) BLOOD GAS, [id number] 12:28:04 Test Item Value Reference Range Interpretation [...] (BEAKER) (test code = 1819) 75.0 POTASSIUM-STAT [id number] 12:27:48 Test Item Value Reference Range Interpretation Comments POTASSIUM (BEAKER) (test code = 5.5 meq/L 3.6-5.5 379) BLOOD GAS, [id number] 11:48:59 Test Item Value Reference Range Interpretation [...] (BEAKER) (test code = 1819) 70.0 GLUCOSE-STAT [id number] 11:47:10 Test Item Value Reference Range Interpretation Comments GLUCOSE RANDOM (BEAKER) (test code 186 mg/dL 70-110 H = 652) HGB/HCT (H&H) - STAT [id number] 11:47:10 Test Item Value Reference Range Interpretation Comments HEMOGLOBIN (BEAKER) (test code = 8.9 GM/DL 12.0-15.0 L 410) HEMATOCRIT (BEAKER) (test code = 26.0 % 36.0-45.0 L 411) SODIUM NA-STAT [id number] 11:47:09 Test Item Value Reference Range Interpretation Comments SODIUM (BEAKER) (test code = 381) 133 meq/L 136-145 L POTASSIUM-STAT [id number] 11:46:29 Test Item Value Reference Range Interpretation Comments POTASSIUM (BEAKER) (test code = 5.3 meq/L 3.6-5.5 379) HGB/HCT (H&H) - STAT [id number] 11:17:46 Test Item Value Reference Range Interpretation Comments HEMOGLOBIN (BEAKER) (test code = 9.6 GM/DL 12.0-15.0 L 410) HEMATOCRIT (BEAKER) (test code = 28.0 % 36.0-45.0 L 411) SODIUM NA-STAT [id number] 11:17:45 Test Item Value Reference Range Interpretation Comments SODIUM (BEAKER) (test code = 381) 133 meq/L 136-145 L BLOOD GAS, [id number] 11:17:39 Test Item Value Reference Range Interpretation [...] (BEAKER) (test code = 1819) 70.0 GLUCOSE-STAT [id number] 11:17:39 Test Item Value Reference Range Interpretation Comments GLUCOSE RANDOM (BEAKER) (test code 171 mg/dL 70-110 H = 652) POTASSIUM-STAT [id number] 11:17:36 Test Item Value Reference Range Interpretation Comments POTASSIUM (BEAKER) (test code = 5.1 meq/L 3.6-5.5 379) HGB/HCT (H&H) - STAT [id number] 10:50:26 Test Item Value Reference Range Interpretation Comments HEMOGLOBIN (BEAKER) (test code = 8.4 GM/DL 12.0-15.0 L 410) HEMATOCRIT (BEAKER) (test code = 25.0 % 36.0-45.0 L 411) SODIUM NA-STAT [id number] 10:50:25 Test Item Value Reference Range Interpretation Comments SODIUM (BEAKER) (test code = 381) 133 meq/L 136-145 L GLUCOSE-STAT [id number] 10:50:25 Test Item Value Reference Range Interpretation Comments GLUCOSE RANDOM (BEAKER) (test code 134 mg/dL 70-110 H = 652) BLOOD GAS, [id number] 10:50:24 Test Item Value Reference Range Interpretation [...] (BEAKER) (test code = 1819) 100.0 POTASSIUM-STAT [id number] 10:49:45 Test Item Value Reference Range Interpretation Comments POTASSIUM (BEAKER) (test code = 3.8 meq/L 3.6-5.5 379) Hemoglobin [id number] 09:30:26 Test Item Value Reference Range Interpretation [...] ADM Lab Interpretation Abnormal (test code = 73892-2) [facility] [id number] 09:30:26 Test Item Value Reference Range Interpretation [...] ADM Lab Interpretation Abnormal (test code = 02963-0) [facility] [id number] 09:30:26 Test Item Value Reference Range Interpretation [...] ADM Lab Interpretation Abnormal (test code = 68765-2) [facility] [id number] 09:30:26 Test Item Value Reference Range Interpretation [...] ADM Lab Interpretation Abnormal (test code = 61891-1) [facility] [id number] 09:30:26 Test Item Value Reference Range Interpretation [...] ADM Lab Interpretation Abnormal (test code = 80928-9) [facility] [id number] 09:30:26 Test Item Value Reference Range Interpretation [...] ADM Lab Interpretation Abnormal (test code = 24981-3) [facility] [id number] 09:30:26 Test Item Value Reference Range Interpretation [...] ADM Lab Interpretation Abnormal (test code = 55858-8) [facility] [id number] 09:30:26 Test Item Value Reference Range Interpretation [...] ADM Lab Interpretation Abnormal (test code = 13141-9) [facility] [id number] 09:30:26 Test Item Value Reference Range Interpretation [...] ADM Lab Interpretation Abnormal (test code = 81667-6) [facility] [id number] 09:30:26 Test Item Value Reference Range Interpretation [...] ADM Lab Interpretation Abnormal (test code = 63204-5) [facility] [id number] 09:30:26 Test Item Value Reference Range Interpretation [...] ADM Lab Interpretation Abnormal (test code = 97789-0) [facility] [id number] 09:30:26 Test Item Value Reference Range Interpretation [...] ADM Lab Interpretation Abnormal (test code = 09438-0) [facility]MO[facility] [id number] 09:30:26 Test Item Value Reference Range Interpretation Comments HEMOGLOBIN A1C 6.9 % See_Comment H [Automated m essage] ELECTROPHORESIS (BEAKER) The system which (test code = 3811) generated this result transmitted ref erence range: <=5.6%. The reference range was not used to int erpret this result as normal/abnormal . "The A1c is measured using a [facility]-certified method. HbA1c value equal to or greater than 6.5% as thediagnosis cutoff for diabetes. An HbA1c value of 5.7- 6.4% indicates increased risk for diabetes (prediabetes)."Anthropologist ID - ADM HGB/HCT (H&H) - STAT [id number] 09:13:03 Test Item Value Reference Range Interpretation Comments HEMOGLOBIN (BEAKER) (test code = 9.0 GM/DL 12.0-15.0 L 410) HEMATOCRIT (BEAKER) (test code = 26.0 % 36.0-45.0 L 411) SODIUM NA-STAT [id number] 09:13:02 Test Item Value Reference Range Interpretation Comments SODIUM (BEAKER) (test code = 381) 134 meq/L 136-145 L GLUCOSE-STAT [id number] 09:13:02 Test Item Value Reference Range Interpretation Comments GLUCOSE RANDOM (BEAKER) (test code 112 mg/dL 70-110 H = 652) BLOOD GAS, [id number] 09:13:01 Test Item Value Reference Range Interpretation [...] (BEAKER) (test code = 1819) 100.0 CALCIUM, [id number] 09:13:00 Test Item Value Reference Range Interpretation Comments CALCIUM IONIZED (BEAKER) (test 1.09 mmol/L 1.12-1.27 L code = 698) PH, BLOOD (BEAKER) (test code = 7.46 1810) POTASSIUM-STAT [id number] 09:12:15 Test Item Value Reference Range Interpretation Comments POTASSIUM (BEAKER) (test code = 3.7 meq/L 3.6-5.5 379) BASIC METABOLIC [id number] 07:11:03 Test Item Value Reference Range Interpretation [...] S NOT APPLICABLE FOR DIALYSIS PATIEN TS. Anthropologist ID - HIEN [id number] 06:29:42 Test Item Value Reference Range Interpretation Comments PHOSPHORUS (BEAKER) (test code = 4.7 mg/dL 2.3-4.7 604) Anthropologist ID - HIEN [id number] 06:29:41 Test Item Value Reference Range Interpretation Comments MAGNESIUM (BEAKER) (test code = 2.0 mg/dL 1.6-2.6 627) Anthropologist ID - HIEN [facility] W/PLT COUNT & AUTO [id number] 06:04:09 Test Item Value Reference Range Interpretation [...] code = 2801) RAD, ABDOMEN/KUB, 1 VIEW [id number] 02:55:00Reason for exam:->abdominal painDIANE QUEEN OF THE [facility]LEY [facility]ENTERName: JAK MERRILL : 1955 Sex: [...] no acute bony abnormality. Signed: Braxton Quintero MDRjasonsaint john's [facility] Verified Date/Time: 06/18/2021 02:55:15 POCT-GLUCOSE [id number] 21:39:12 Test Item Value Reference Range Interpretation Comments POC-GLUCOSE METER 135 mg/dL 70-110 H : TESTED A T [facility] 6720 (BEAKER) (test code = [place], 1538) [address]: Anthropologist/Techni kelle ID = [id number] for Eliezer Jerome HEMOGLOBIN AND [id number] 21:31:20 Test Item Value Reference Range Interpretation Comments HEMOGLOBIN (BEAKER) (test code = 6.9 GM/DL 11.2-15.7 L 410) HEMATOCRIT (BEAKER) (test code = 21.8 % 34.1-44.9 L 411) Anthropologist ID - [id number] ID - [id number], [id number] 18:33:00Unlisted Reason for Exam - Click Yes and Enter Reason Below->NoIs this for enterography?->NoPlease specify:->Renal Stone Protocolalso look for spleen if there is any infarct causing left flankpainWill this procedure require oral contrast?->NoCHI QUEEN OF THE VALLEY [facility]ENTERName: JAK MERRILL : 1955 Sex: [...] RADIATION DOSE:Total DLP: 393 mGy*cmDose modulation, iterative matthew nstruction, and/or weight based adjustment of the mA/kV was utilized to reduce the radiation dose toas low as reasonably achievable. FINDINGS:LOWER THORAX: Moderate right effusion with right lower lobe airspace opacity displaying air bronchograms. Left base displays interstitial thickening, compressive atelectasis and perivascular groundglass opacities. Cardiomegaly. Pacer leads terminating within the right atrium and right ventricle. HEPATOBILIARY: Diffusely dense hepatic parenchyma. No focal hepatic lesions. Hepatomegaly to 19.7 cm. No biliary ductal dilatation. Cholelithiasis without evidence of cholecystitis. Excreted contrast layering [...] the lower body of the uterus. PERITONEUM /RETROPERITONEUM: Trace perihepatic ascites. No free air.LYMPH NODES: No lymphadenopathy.VESSELS: Significant aortoiliac atherosclerosis with extension of the visceral branches, most advanced within theinfrarenal aorta. GI TRACT: No distention or wall [...] with perivascular groundglass airspace opacities, interstitial edema.3.Trace perihepa tic ascites with superficial soft tissue displaying interstitial [...] MDReport Verified Date/Time: 06/17/2021 18:33:28 Reading Location: [address] Transitional Reading Room Comprehensive metabolic [id number] 16:18:22 Test Item Value Reference Range Interpretation Comments Protein, Total (test 7.0 See_Comment [Autom ated code = 2885-2) message] The system which generated this result transmit levi reference range : 6.0 - 8.3 gm/dL . The reference range was not u sed to interpret th is result as normal/abnormal . Albumin (test code = 2.7 g/dL 3.5-5.0 L 81693-2) Alkaline Phosphatase 99 U/L 40-150 (test code [...] Calcium (test code = 8.4 mg/dL 8.4-10.2 12008-9) AST (test code = 17 U/L 5-34 1920-8) ALT (test code = 10 U/L 6-55 1742-6) EGFR (test code = 11 mL/min/1.73 sq m [facility] [facility] [place] [address]-4) NOT ACCURATE CREATININE CLEARANCE IN PREDICTING GLOMERULAR FILTRATION RATE . ESTIMATED GFR I S NOT APPLICABLE FOR DIALYSIS PATIEN TS. BRANDI (test code = BRANDI) Anthropologist ID - BS Lab Interpretation Abnormal (test code = 40019-6) [facility] [id number] 16:18:22 Test Item Value Reference Range Interpretation Comments Protein, Total (test 7.0 See_Comment [Autom ated code = 2885-2) message] The system which generated this result transmit levi reference range : 6.0 - 8.3 gm/dL . The reference range was not u sed to interpret th is result as normal/abnormal . Albumin (test code = 2.7 g/dL 3.5-5.0 L 27152-1) Alkaline Phosphatase 99 U/L 40-150 (test code [...] Calcium (test code = 8.4 mg/dL 8.4-10.2 31099-3) AST (test code = 17 U/L 5-34 1920-8) ALT (test code = 10 U/L 655 1742-6) EGFR (test code = 11 mL/min/1.73 sq m [place] [address]-8) NOT ACCURATE CREATININE CLEARANCE IN PREDICTING GLOMERULAR FILTRATION RATE . ESTIMATED GFR I S NOT APPLICABLE FOR DIALYSIS PATIEN TSEsvin BRANDI (test code = BRANDI) Anthropologist ID - BS Lab Interpretation Abnormal (test code = 82000-8) [facility] [id number] 16:18:22 Test Item Value Reference Range Interpretation Comments Protein, Total (test 7.0 See_Comment [Autom ated code = 2885-2) message] The system which generated this result transmit levi reference range : 6.0 - 8.3 gm/dL . The reference range was not u sed to interpret th is result as normal/abnormal . Albumin (test code = 2.7 g/dL 3.5-5.0 L 93433-5) Alkaline Phosphatase 99 U/L 40-150 (test code = 6768-6) Total Bilirubin (test 0.4 mg/dL 0.2-1.2 code = 1974-) Sodium (test code = 135 meq/L 136-145 L 2951-2) Potassium (test code 3.7 meq/L 3.5-5.1 = 2823-3) Chloride (test code = 100 meq/L 98-107 2075-0) CO2 (test code = 29 meq/L -2027-12) BUN (test code = 17 mg/dL 10-22-0) Creatinine (test code 4.22 mg/dL 0.57-1.25 H = 2160-0) Glucose (test code = 109 mg/dL 70-105 H 2345-7) Calcium (test code = 8.4 mg/dL 8.4-10.2 44124-8) AST (test code = 17 U/L -34 1919-8) ALT (test code = 10 U/L 655 1742-6) EGFR (test code = 11 mL/min/1.[place] [address]-2) NOT ACCURATE CREATININE CLEARANCE IN PREDICTING GLOMERULAR FILTRATION RATE . ESTIMATED GFR I S NOT APPLICABLE FOR DIALYSIS PATIEN BRANDI (test code = BRANDI) Anthropologist ID - BS Lab Interpretation Abnormal (test code = 69431-6) [facility] [id number] 16:18:22 Test Item Value Reference Range Interpretation Comments Protein, Total (test 7.0 See_Comment [Autom ated code = 2885-2) message] The system which generated this result transmit levi reference range : 6.0 - 8.3 gm/dL . The reference range was not u sed to interpret th is result as normal/abnormal . Albumin (test code = 2.7 g/dL 3.5-5.0 L 04890-8) Alkaline Phosphatase 99 U/L 40-150 (test code = 6768-6) Total Bilirubin (test 0.4 mg/dL 0.2-1.2 code = 1975-2) Sodium (test code = 135 meq/L 136-145 L 2951-2) Potassium (test code 3.7 meq/L 3.5-5.1 = 2823-3) Chloride (test code = 100 meq/L 98-107 0) CO2 (test code = 29 meq/L 2027-12) BUN (test code = 17 mg/dL 10-22 309-0) Creatinine (test code 4.22 mg/dL 0.57-1.25 H = 2160-0) Glucose (test code = 109 mg/dL 70-105 H 2345-7) Calcium (test code = 8.4 mg/dL 8.4-10.2 11588-7) AST (test code = 17 U/L -1919-8) ALT (test code = 10 U/L 2-6) EGFR (test code = 11 mL/min/1.[place] [address]-6) NOT ACCURATE CREATININE CLEARANCE IN PREDICTING GLOMERULAR FILTRATION RATE . ESTIMATED GFR I S NOT APPLICABLE FOR DIALYSIS PATIEN BRANDI (test code = BRANDI) Anthropologist ID - BS Lab Interpretation Abnormal (test code = 84170-5) [facility] [id number] 16:18:22 Test Item Value Reference Range Interpretation Comments Protein, Total (test 7.0 See_Comment [Autom ated code = 2885-2) message] The system which generated this result transmit levi reference range : 6.0 - 8.3 gm/dL . The reference range was not u sed to interpret th is result as normal/abnormal . Albumin (test code = 2.7 g/dL 3.5-5.0 L 42718-5) Alkaline Phosphatase 99 U/L 40-150 (test code [...] (test code = 109 mg/dL 70-105 H 2344-7) Calcium (test code = 8.4 mg/dL 8.4-10.2 93954-8) AST (test code = 17 U/L 1919-8) ALT (test code = 10 U/L 2-6) EGFR (test code = 11 mL/min/1.[place] [address]-7) NOT ACCURATE CREATININE CLEARANCE IN PREDICTING GLOMERULAR FILTRATION RATE . ESTIMATED GFR I S NOT APPLICABLE FOR DIALYSIS PATIEN TS. BRANDI (test code = BRANDI) Anthropologist ID - BS Lab Interpretation Abnormal (test code = 01002-3) [facility] [id number] 16:18:22 Test Item Value Reference Range Interpretation Comments Protein, Total (test 7.0 See_Comment [Autom ated code = 2885-2) message] The system which generated this result transmit levi reference range : 6.0 - 8.3 gm/dL . The reference range was not u sed to interpret th is result as normal/abnormal . Albumin (test code = 2.7 g/dL 3.5-5.0 L 67545-1) Alkaline Phosphatase 99 U/L 40-150 (test code [...] Calcium (test code = 8.4 mg/dL 8.4-10.2 96099-9) AST (test code = 17 U/L 5-34 1920-8) ALT (test code = 10 U/L 6-55 1742-6) EGFR (test code = 11 mL/min/1.[place] [address]-6) NOT ACCURATE CREATININE CLEARANCE IN PREDICTING GLOMERULAR FILTRATION RATE . ESTIMATED GFR I S NOT APPLICABLE FOR DIALYSIS PATIEN TS. BRANDI (test code = BRANDI) Anthropologist ID - BS Lab Interpretation Abnormal (test code = 80949-0) [facility] [id number] 16:18:22 Test Item Value Reference Range Interpretation Comments Protein, Total (test 7.0 See_Comment [Autom ated code = 2885-2) message] The system which generated this result transmit levi reference range : 6.0 - 8.3 gm/dL . The reference range was not u sed to interpret th is result as normal/abnormal . Albumin (test code = 2.7 g/dL 3.5-5.0 L 24442-4) Alkaline Phosphatase 99 U/L 40-150 (test code [...] Calcium (test code = 8.4 mg/dL 8.4-10.2 21879-3) AST (test code = 17 U/L 5-34 1920-8) ALT (test code = 10 U/L 6-55 1742-6) EGFR (test code = 11 mL/min/1.[place] [address]-2) NOT ACCURATE CREATININE CLEARANCE IN PREDICTING GLOMERULAR FILTRATION RATE . ESTIMATED GFR I S NOT APPLICABLE FOR DIALYSIS PATIEN TSEsvin BRANDI (test code = BRANDI) Anthropologist ID - BS Lab Interpretation Abnormal (test code = 95227-9) [facility] [id number] 16:18:22 Test Item Value Reference Range Interpretation Comments Protein, Total (test 7.0 See_Comment [Autom ated code = 2885-2) message] The system which generated this result transmit levi reference range : 6.0 - 8.3 gm/dL . The reference range was not u sed to interpret th is result as normal/abnormal . Albumin (test code = 2.7 g/dL 3.5-5.0 L 44905-5) Alkaline Phosphatase 99 U/L 40-150 (test code [...] (test code = 109 mg/dL 70-105 H 2344-7) Calcium (test code = 8.4 mg/dL 8.4-10.2 17712-4) AST (test code = 17 U/L 5-34 192-8) ALT (test code = 10 U/L 6-55 1741-6) EGFR (test code = 11 mL/min/1.[place] [address]-2) NOT ACCURATE CREATININE CLEARANCE IN PREDICTING GLOMERULAR FILTRATION RATE . ESTIMATED GFR I S NOT APPLICABLE FOR DIALYSIS PATIEN BRANDI (test code = BRANDI) Anthropologist ID - BS Lab Interpretation Abnormal (test code = 34287-7) [facility] [id number] 16:18:22 Test Item Value Reference Range Interpretation Comments Protein, Total (test 7.0 See_Comment [Autom ated code = 2885-2) message] The system which generated this result transmit levi reference range : 6.0 - 8.3 gm/dL . The reference range was not u sed to interpret th is result as normal/abnormal . Albumin (test code = 2.7 g/dL 3.5-5.0 L 14414-5) Alkaline Phosphatase 99 U/L 40-150 (test code [...] Calcium (test code = 8.4 mg/dL 8.4-10.2 67012-2) AST (test code = 17 U/L 5-34 1920-8) ALT (test code = 10 U/L 655 1742-6) EGFR (test code = 11 mL/min/1.[place] [address]-1) NOT ACCURATE CREATININE CLEARANCE IN PREDICTING GLOMERULAR FILTRATION RATE . ESTIMATED GFR I S NOT APPLICABLE FOR DIALYSIS PATIEN TS. BRANDI (test code = BRANDI) Anthropologist ID - BS Lab Interpretation Abnormal (test code = 61344-6) [facility] [id number] 16:18:22 Test Item Value Reference Range Interpretation Comments Protein, Total (test 7.0 See_Comment [Autom ated code = 2885-2) message] The system which generated this result transmit levi reference range : 6.0 - 8.3 gm/dL . The reference range was not u sed to interpret th is result as normal/abnormal . Albumin (test code = 2.7 g/dL 3.5-5.0 L 63605-9) Alkaline Phosphatase 99 U/L 40-150 (test code [...] Calcium (test code = 8.4 mg/dL 8.4-10.2 59927-9) AST (test code = 17 U/L -34 1920-8) ALT (test code = 10 U/L 6-55 1742-6) EGFR (test code = 11 mL/min/1.[place] [address]-3) NOT ACCURATE CREATININE CLEARANCE IN PREDICTING GLOMERULAR FILTRATION RATE . ESTIMATED GFR I S NOT APPLICABLE FOR DIALYSIS PATIEN TS. BRANDI (test code = BRANDI) Anthropologist ID - BS Lab Interpretation Abnormal (test code = 40693-3) [facility] [id number] 16:18:22 Test Item Value Reference Range Interpretation Comments Protein, Total (test 7.0 See_Comment [Autom ated code = 2885-2) message] The system which generated this result transmit levi reference range : 6.0 - 8.3 gm/dL . The reference range was not u sed to interpret th is result as normal/abnormal . Albumin (test code = 2.7 g/dL 3.5-5.0 L 33619-1) Alkaline Phosphatase 99 U/L 40-150 (test code [...] Calcium (test code = 8.4 mg/dL 8.4-10.2 48468-9) AST (test code = 17 U/L 34 0-8) ALT (test code = 10 U/L 6-55 1742-6) EGFR (test code = 11 mL/min/1.[place] [address]-9) NOT ACCURATE CREATININE CLEARANCE IN PREDICTING GLOMERULAR FILTRATION RATE . ESTIMATED GFR I S NOT APPLICABLE FOR DIALYSIS PATIEN BRANDI (test code = BRANDI) Anthropologist ID - BS Lab Interpretation Abnormal (test code = 98935-3) [facility] [id number] 16:18:22 Test Item Value Reference Range Interpretation Comments Protein, Total (test 7.0 See_Comment [Autom ated code = 2885-2) message] The system which generated this result transmit levi reference range : 6.0 - 8.3 gm/dL . The reference range was not u sed to interpret th is result as normal/abnormal . Albumin (test code = 2.7 g/dL 3.5-5.0 L 13207-6) Alkaline Phosphatase 99 U/L 40-150 (test code [...] Calcium (test code = 8.4 mg/dL 8.4-10.2 14371-7) AST (test code = 17 U/L 5-34 1920-8) ALT (test code = 10 U/L 1742-6) EGFR (test code = 11 mL/min/1.[place] [address]-0) NOT ACCURATE CREATININE CLEARANCE IN PREDICTING GLOMERULAR FILTRATION RATE . ESTIMATED GFR I S NOT APPLICABLE FOR DIALYSIS PATIEN BRANDI (test code = BRANDI) Anthropologist ID - BS Lab Interpretation Abnormal (test code = 75435-4) [facility] [id number] 16:18:22 Test Item Value Reference Range Interpretation [...] S NOT APPLICABLE FOR DIALYSIS PATIEN TS. Anthropologist ID - [id number] 16:17:20 Test Item Value Reference Range Interpretation Comments MAGNESIUM (BEAKER) (test code = 1.8 mg/dL 1.6-2.6 627) Anthropologist ID - [id number] 16:10:37 Test Item Value Reference Range Interpretation Comments PARTIAL THROMBOPLASTIN TIME 34.5 seconds 22.5-36.0 (BEAKER) (test code = 760) PROTHROMBIN TIME/[id number] 16:10:03 Test Item Value Reference Range Interpretation Comments PROTIME (BEAKER) 17.2 seconds 11.9-14.2 H (test code = 759) INR (BEAKER) (test 1.43 See_Comment [Automat ed message] code = 370) The system [employer] generated this result transmitted ref erence range: <=5.90. The reference range was not used to int erpret this result as normal/abnormal . RECOMMENDED COUMADIN/WARFARIN INR THERAPY RANGESSTANDARD DOSE: 2.0 - 3.0 Includes: PROPHYLAXIS for venous thrombosis, systemic embolization; TREATMENT for venous thrombosis and/or pulmonary embolus.HIGH RISK: Target INR is 2.5-3.5 for patients with mechanical heart valves.CBC W/PLT COUNT & AUTO [id number] 16:01:31 Test Item Value Reference Range Interpretation [...] (BEAKER) (test code = 2801) NV, ANGIOGRAM, [id number] 09:13:00Reason for exam:->mycotic aneurysm rule outPLUMAS [facility]Name: [facility] : 1955 Sex: FFINAL REPORT DATE OF PROCEDURE: 06/16/2021 SURGEON: Mili Kent MD REVENUE SPECIALIST: Eloy Portillo MD; Alisa Monae MD PREOPERATIVE DIAGNOSIS: Subarachnoid hemorrhage POST OPERATIVE DIAGNOSIS: Nonaneurysmal subarachnoid hemorrhage PROCEDURE: Diagnostic cerebral injury ANESTHESIA: Monitored anesthesia ESTIMATED BLOOD LOSS: Minimal COMPLICATIONS: None Vessels catheterized:Right common femoral arteryRight common carotid artery, cervicalRight common carotid, cerebralLeft common carotid artery, cervicalLeft common carotid, cerebralLeft vertebral artery *FEMORAL*5F sheathBentson WireVertebral CatheterTerumo [place] wireMynx Closure Device INDICATIONS: The patient is [...] arteries are patent. There is a right FINE PATCHER variant anatomy. No evidence of aneurysm, vascular [...] cerebral artery is diminutive in size given FINE PATCHER anatomy and the the left FINE PATCHER is normal in caliber and contour. No [...] MDReport Verified Date/Time: 06/17/2021 09:13:43 Reading Location: [facility] [place] [address] [facility] Reading Room BASIC METABOLIC [id number] 05:09:41 Test Item Value Reference Range Interpretation [...] S NOT APPLICABLE FOR DIALYSIS PATIEN TS. Anthropologist ID - HIEN [id number] 05:07:06 Test Item Value Reference Range Interpretation Comments MAGNESIUM (BEAKER) (test code = 2.1 mg/dL 1.6-2.6 627) Anthropologist ID - HIEN [id number] 05:07:06 Test Item Value Reference Range Interpretation Comments PHOSPHORUS (BEAKER) (test code = 5.7 mg/dL 2.3-4.7 H 604) Anthropologist ID - HIEN [facility] W/PLT COUNT & AUTO [id number] 04:38:56 Test Item Value Reference Range Interpretation [...] PERCENT (BEAKER) (test code = 2801) POCT-GLUCOSE [id number] 00:10:32 Test Item Value Reference Range Interpretation Comments POC-GLUCOSE METER 221 mg/dL 70-110 H : TESTED A T [facility] 6720 (BEAKER) (test code = [facility], 1538) [address]: Anthropologist/Techni kelle ID = [id number] for ELROY QUINTERO SHAHLA POCT-GLUCOSE [id number] 18:11:32 Test Item Value Reference Range Interpretation Comments POC-GLUCOSE METER 170 mg/dL 70-110 H : TESTED A T [facility] 6720 (BEAKER) (test code = [facility], 1538) [address]: Anthropologist/Techni kelle ID = [id number] for Onelia Lorenz Blood [id number] 14:00:39 Test Item Value Reference Range Interpretation Comments Result (test code = No growth in 5 days 6463-4) [facility] [id number] 14:00:39 Test Item Value Reference Range Interpretation Comments Result (test code = No growth in 5 days 6463-4) [facility]2022-03-15 14:00:39 Test Item Value Reference Range Interpretation Comments Result (test code = No growth in 5 days 6463-4) [facility]2022-03-15 14:00:39 Test Item Value Reference Range Interpretation Comments Result (test code = No growth in 5 days 6463-4) [facility]2022-03-15 14:00:39 Test Item Value Reference Range Interpretation Comments Result (test code = No growth in 5 days 6463-4) [facility]2022-03-15 14:00:39 Test Item Value Reference Range Interpretation Comments Result (test code = No growth in 5 days 6463-4) [facility]2022-03-15 14:00:39 Test Item Value Reference Range Interpretation Comments Result (test code = No growth in 5 days 6463-4) [facility]2022-03-15 14:00:39 Test Item Value Reference Range Interpretation Comments Result (test code = No growth in 5 days 6463-4) [facility]2022-03-15 14:00:39 Test Item Value Reference Range Interpretation Comments Result (test code = No growth in 5 days 6463-4) [facility]2022-03-15 14:00:39 Test Item Value Reference Range Interpretation Comments Result (test code = No growth in 5 days 6463-4) [facility]2022-03-15 14:00:39 Test Item Value Reference Range Interpretation Comments Result (test code = No growth in 5 days 6463-4) [facility]2022-03-15 14:00:39 Test Item Value Reference Range Interpretation Comments Result (test code = No growth in 5 days 6463-4) [facility]2022-03-15 14:00:39 Test Item Value Reference Range Interpretation Comments CULTURE (BEAKER) (test No growth in 5 days code = 1095) MR, BRAIN, WITHOUT [id number] 13:02:00[facility] L[facility] [id number] Unlisted Reason for Exam - Click Yes and Enter Reason Below- >No Deos the patient have an implanted electronic device?->Yes [employer] [facility] MRI L111/ [id number] [facility] : 1955 Sex: [...] Cosme Verified Date/Time: 06/16/2021 13:02:07 Reading Location: [facility] [id number] Neuro Reading Room D [id number] 08:00:27 Test Item Value Reference Range Interpretation Comments CULTURE (BEAKER) (test No growth in 5 days code = 1095) POCT-GLUCOSE [id number] 07:30:10 Test Item Value Reference Range Interpretation Comments POC-GLUCOSE METER 159 mg/dL 70-110 H : TESTED A T [facility] 6720 (BEAKER) (test code = [facility], 1538) [address]: Anthropologist/Techni kelle ID = [id number] for An Onelia ramirez BASIC METABOLIC [id number] 05:42:18 Test Item Value Reference Range Interpretation [...] S NOT APPLICABLE FOR DIALYSIS PATIEN TS. Anthropologist ID - RAKAN [id number] 05:35:31 Test Item Value Reference Range Interpretation Comments MAGNESIUM (BEAKER) (test code = 2.1 mg/dL 1.6-2.6 627) Anthropologist ID Bassam BLEDSOE [id number] 05:35:31 Test Item Value Reference Range Interpretation Comments PHOSPHORUS (BEAKER) (test code = 4.5 mg/dL 2.3-4.7 604) Anthropologist ID - RAKAN WCBC W/PLT COUNT & AUTO [id number] 04:43:33 Test Item Value Reference Range Interpretation [...] PERCENT (BEAKER) (test code = 2801) BLOOD [id number] 00:00:28 Test Item Value Reference Range Interpretation Comments CULTURE (BEAKER) (test No growth in 5 days code = 1095) The specimen volume collected for this blood culture was below the optimum (10 mL per bottle or 20 mL total). Use of lower volumes may adversely affect recovery and/or detection times of some organisms.POCT-GLUCOSE [id number] 21:39:58 Test Item Value Reference Range Interpretation Comments POC-GLUCOSE METER 173 mg/dL 70-110 H : Notified RN/MD: (AKASH) (test code = TESTED AT [facility] 6720 1538) [place], [address]: Anthropologist/Techni kelle ID = [id number] for DE NNJANE, EMANUEL Hepatic function [id number] 15:52:11 Test Item Value Reference Range Interpretation Comments Protein, Total (test 6.8 See_Comment [Autom ated code = 2885-2) message] The system which generated this result transmit levi reference range : 6.0 - 8.3 gm/dL . The reference range was not u sed to interpret th is result as normal/abnormal . Albumin (test code = 2.6 g/dL 3.5-5.0 L 25963-5) Total Bilirubin (test 0.3 mg/dL 0.2-1.2 code = 1974-) Bilirubin, Direct 0.2 mg/dL 0.1-0.5 (test code = 1967-) Alkaline Phosphatase 90 U/L 40-150 (test code = 6768-6) AST (test code = 17 U/L 5-34 1920-8) ALT (test code = 11 U/L 6-55 1742-6) BRANDI (test code = BRANDI) Anthropologist ID - PIAYA L Lab Interpretation Abnormal (test code = 46886-9) [facility] [id number] 15:52:11 Test Item Value Reference Range Interpretation Comments Protein, Total (test 6.8 See_Comment [Autom ated code = 2885-2) message] The system which generated this result transmit levi reference range : 6.0 - 8.3 gm/dL . The reference range was not u sed to interpret th is result as normal/abnormal . Albumin (test code = 2.6 g/dL 3.5-5.0 L 63144-8) Total Bilirubin (test 0.3 mg/dL 0.2-1.2 code = 1974-2) Bilirubin, Direct 0.2 mg/dL 0.1-0.5 (test code = 1967-7) Alkaline Phosphatase 90 U/L 40-150 (test code = 6768-6) AST (test code = 17 U/L 5-34 1920-8) ALT (test code = 11 U/L 6-55 1742-6) BRANDI (test code = BRANDI) Anthropologist ID - PIAYA L Lab Interpretation Abnormal (test code = 85577-9) [facility] [id number] 15:52:11 Test Item Value Reference Range Interpretation Comments Protein, Total (test 6.8 See_Comment [Autom ated code = 2885-2) message] The system which generated this result transmit levi reference range : 6.0 - 8.3 gm/dL . The reference range was not u sed to interpret th is result as normal/abnormal . Albumin (test code = 2.6 g/dL 3.5-5.0 L 88351-4) Total Bilirubin (test 0.3 mg/dL 0.2-1.2 code = 1974-) Bilirubin, Direct 0.2 mg/dL 0.1-0.5 (test code = 1967-) Alkaline Phosphatase 90 U/L 40-150 (test code = 6768-6) AST (test code = 17 U/L 5-34 1920-8) ALT (test code = 11 U/L 655 1742-6) BRANDI (test code = BRANDI) Anthropologist ID - PIAYA L Lab Interpretation Abnormal (test code = 32508-2) [facility] [id number] 15:52:11 Test Item Value Reference Range Interpretation Comments Protein, Total (test 6.8 See_Comment [Autom ated code = 2885-2) message] The system which generated this result transmit levi reference range : 6.0 - 8.3 gm/dL . The reference range was not u sed to interpret th is result as normal/abnormal . Albumin (test code = 2.6 g/dL 3.5-5.0 L 35612-8) Total Bilirubin (test 0.3 mg/dL 0.2-1.2 code = 1974-) Bilirubin, Direct 0.2 mg/dL 0.1-0.5 (test code = 1967-7) Alkaline Phosphatase 90 U/L 40-150 (test code = 6768-6) AST (test code = 17 U/L 5-34 1920-8) ALT (test code = 11 U/L 6-55 1742-6) BRANDI (test code = BRANDI) Anthropologist ID - PIAYA L Lab Interpretation Abnormal (test code = 01482-8) [facility] [id number] 15:52:11 Test Item Value Reference Range Interpretation Comments Protein, Total (test 6.8 See_Comment [Autom ated code = 2885-2) message] The system which generated this result transmit levi reference range : 6.0 - 8.3 gm/dL . The reference range was not u sed to interpret th is result as normal/abnormal . Albumin (test code = 2.6 g/dL 3.5-5.0 L 51749-1) Total Bilirubin (test 0.3 mg/dL 0.2-1.2 code = 1974-) Bilirubin, Direct 0.2 mg/dL 0.1-0.5 (test code = 1967-) Alkaline Phosphatase 90 U/L 40-150 (test code = 6768-6) AST (test code = 17 U/L 1919-8) ALT (test code = 11 U/L 1742-6) BRANDI (test code = BRANDI) Anthropologist ID - PIAYA L Lab Interpretation Abnormal (test code = 42959-3) [facility] [id number] 15:52:11 Test Item Value Reference Range Interpretation Comments Protein, Total (test 6.8 See_Comment [Autom ated code = 2885-2) message] The system which generated this result transmit levi reference range : 6.0 - 8.3 gm/dL . The reference range was not u sed to interpret th is result as normal/abnormal . Albumin (test code = 2.6 g/dL 3.5-5.0 L 70899-3) Total Bilirubin (test 0.3 mg/dL 0.2-1.2 code = 1974-) Bilirubin, Direct 0.2 mg/dL 0.1-0.5 (test code = 1967-) Alkaline Phosphatase 90 U/L 40-150 (test code = 6768-6) AST (test code = 17 U/L 5-34 1920-8) ALT (test code = 11 U/L 655 1742-6) BRANDI (test code = BRANDI) Anthropologist ID - PIAYA L Lab Interpretation Abnormal (test code = 75002-5) [facility] [id number] 15:52:11 Test Item Value Reference Range Interpretation Comments Protein, Total (test 6.8 See_Comment [Autom ated code = 2885-2) message] The system which generated this result transmit levi reference range : 6.0 - 8.3 gm/dL . The reference range was not u sed to interpret th is result as normal/abnormal . Albumin (test code = 2.6 g/dL 3.5-5.0 L 79337-7) Total Bilirubin (test 0.3 mg/dL 0.2-1.2 code = 1974-) Bilirubin, Direct 0.2 mg/dL 0.1-0.5 (test code = 1967-) Alkaline Phosphatase 90 U/L 40-150 (test code = 6768-6) AST (test code = 17 U/L 192-8) ALT (test code = 11 U/L 1742-6) BRANDI (test code = BRANDI) Anthropologist ID - PIAYA L Lab Interpretation Abnormal (test code = 11023-5) [facility] [id number] 15:52:11 Test Item Value Reference Range Interpretation Comments Protein, Total (test 6.8 See_Comment [Autom ated code = 2885-2) message] The system which generated this result transmit levi reference range : 6.0 - 8.3 gm/dL . The reference range was not u sed to interpret th is result as normal/abnormal . Albumin (test code = 2.6 g/dL 3.5-5.0 L 98573-6) Total Bilirubin (test 0.3 mg/dL 0.2-1.2 code = 1974-) Bilirubin, Direct 0.2 mg/dL 0.1-0.5 (test code = 1967-) Alkaline Phosphatase 90 U/L 40-150 (test code = 6768-6) AST (test code = 17 U/L 5-34 1920-8) ALT (test code = 11 U/L 55 1742-6) BRANDI (test code = BRANDI) Anthropologist ID - PIAYA L Lab Interpretation Abnormal (test code = 60378-6) [facility] [id number] 15:52:11 Test Item Value Reference Range Interpretation Comments Protein, Total (test 6.8 See_Comment [Autom ated code = 2885-2) message] The system which generated this result transmit levi reference range : 6.0 - 8.3 gm/dL . The reference range was not u sed to interpret th is result as normal/abnormal . Albumin (test code = 2.6 g/dL 3.5-5.0 L 40516-6) Total Bilirubin (test 0.3 mg/dL 0.2-1.2 code = 1974-) Bilirubin, Direct 0.2 mg/dL 0.1-0.5 (test code = 1967-) Alkaline Phosphatase 90 U/L 40-150 (test code = 6768-6) AST (test code = 17 U/L 1919-8) ALT (test code = 11 U/L 1742-6) BRANDI (test code = BRANDI) Anthropologist ID - PIAYA L Lab Interpretation Abnormal (test code = 15902-0) [facility] [id number] 15:52:11 Test Item Value Reference Range Interpretation Comments Protein, Total (test 6.8 See_Comment [Autom ated code = 2885-2) message] The system which generated this result transmit levi reference range : 6.0 - 8.3 gm/dL . The reference range was not u sed to interpret th is result as normal/abnormal . Albumin (test code = 2.6 g/dL 3.5-5.0 L 05068-9) Total Bilirubin (test 0.3 mg/dL 0.2-1.2 code = 1974-) Bilirubin, Direct 0.2 mg/dL 0.1-0.5 (test code = 1967-) Alkaline Phosphatase 90 U/L 40-150 (test code = 6768-6) AST (test code = 17 U/L 192-8) ALT (test code = 11 U/L 1742-6) BRANDI (test code = BRANDI) Anthropologist ID - PIAYA L Lab Interpretation Abnormal (test code = 45308-4) [facility] [id number] 15:52:11 Test Item Value Reference Range Interpretation Comments Protein, Total (test 6.8 See_Comment [Autom ated code = 2885-2) message] The system which generated this result transmit levi reference range : 6.0 - 8.3 gm/dL . The reference range was not u sed to interpret th is result as normal/abnormal . Albumin (test code = 2.6 g/dL 3.5-5.0 L 28714-1) Total Bilirubin (test 0.3 mg/dL 0.2-1.2 code = 1974-2) Bilirubin, Direct 0.2 mg/dL 0.1-0.5 (test code = 1967-7) Alkaline Phosphatase 90 U/L 40-150 (test code = 6768-6) AST (test code = 17 U/L - 192-8) ALT (test code = 11 U/L 1742-6) BRANDI (test code = BRANDI) Anthropologist ID - PIAYA L Lab Interpretation Abnormal (test code = 10467-7) [facility] [id number] 15:52:11 Test Item Value Reference Range Interpretation Comments Protein, Total (test 6.8 See_Comment [Autom ated code = 2885-2) message] The system which generated this result transmit levi reference range : 6.0 - 8.3 gm/dL . The reference range was not u sed to interpret th is result as normal/abnormal . Albumin (test code = 2.6 g/dL 3.5-5.0 L 96073-5) Total Bilirubin (test 0.3 mg/dL 0.2-1.2 code = 1974-) Bilirubin, Direct 0.2 mg/dL 0.1-0.5 (test code = 1967-) Alkaline Phosphatase 90 U/L 40-150 (test code = 6768-6) AST (test code = 17 U/L 5-34 1920-8) ALT (test code = 11 U/L 6- 1742-6) BRANDI (test code = BRANDI) Anthropologist ID - PIAYA L Lab Interpretation Abnormal (test code = 09077-2) [facility] FUN[facility] [id number] 15:52:11 Test Item Value Reference Range Interpretation [...] (test code = 11 U/L 6-55 347) Anthropologist ID - BURKEAYA LHeparin bwwvgico9730-33-02 12:21:31 Test Item Value Reference Range Interpretation Comments Heparin Ab (test code Negative Negative = 3267-2) Heparin Antibody 0.247 <0.400 Optical Density (test code = 2659) 4T Total Score (test 4 code = 2661) BRANDI (test code = BRANDI) Probability of HIT based on scoring system: 6-8 = High probability; 4-5 = intermediate probability; 0-3 = low probability [facility] ikwzuzqk4818-57-34 12:21:31 Test Item Value Reference Range Interpretation Comments Heparin Ab (test code Negative Negative = 3267-2) Heparin Antibody 0.247 <0.400 Optical Density (test code = 2659) 4T Total Score (test 4 code = 2661) BRANDI (test code = BRANDI) Probability of HIT based on scoring system: 6-8 = High probability; 4-5 = intermediate probability; 0-3 = low probability [facility] [id number] 12:21:31 Test Item Value Reference Range Interpretation Comments Heparin Ab (test code Negative Negative = 3267-2) Heparin Antibody 0.247 <0.400 Optical Density (test code = 2659) 4T Total Score (test 4 code = 2661) BRANDI (test code = BRANDI) Probability of HIT based on scoring system: 6-8 = High probability; 4-5 = intermediate probability; 0-3 = low probability [facility] [id number] 12:21:31 Test Item Value Reference Range Interpretation Comments Heparin Ab (test code Negative Negative = 3267-2) Heparin Antibody 0.247 <0.400 Optical Density (test code = 2659) 4T Total Score (test 4 code = 2661) BRANDI (test code = BRANDI) Probability of HIT based on scoring system: 6-8 = High probability; 4-5 = intermediate probability; 0-3 = low probability [facility] [id number] 12:21:31 Test Item Value Reference Range Interpretation Comments Heparin Ab (test code Negative Negative = 3267-2) Heparin Antibody 0.247 <0.400 Optical Density (test code = 2659) 4T Total Score (test 4 code = 2661) BRANDI (test code = BRANDI) Probability of HIT based on scoring system: 6-8 = High probability; 4-5 = intermediate probability; 0-3 = low probability [facility] [id number] 12:21:31 Test Item Value Reference Range Interpretation Comments Heparin Ab (test code Negative Negative = 3267-2) Heparin Antibody 0.247 <0.400 Optical Density (test code = 2659) 4T Total Score (test 4 code = 2661) BRANDI (test code = BRANDI) Probability of HIT based on scoring system: 6-8 = High probability; 4-5 = intermediate probability; 0-3 = low probability [facility] hozznsmz0966-14-03 12:21:31 Test Item Value Reference Range Interpretation Comments Heparin Ab (test code Negative Negative = 3267-2) Heparin Antibody 0.247 <0.400 Optical Density (test code = 2659) 4T Total Score (test 4 code = 2661) BRANDI (test code = BRANDI) Probability of HIT based on scoring system: 6-8 = High probability; 4-5 = intermediate probability; 0-3 = low probability [facility] [id number] 12:21:31 Test Item Value Reference Range Interpretation Comments Heparin Ab (test code Negative Negative = 3267-2) Heparin Antibody 0.247 <0.400 Optical Density (test code = 2659) 4T Total Score (test 4 code = 2661) BRANDI (test code = BRANDI) Probability of HIT based on scoring system: 6-8 = High probability; 4-5 = intermediate probability; 0-3 = low probability [facility] qowlqser1398-27-49 12:21:31 Test Item Value Reference Range Interpretation Comments Heparin Ab (test code Negative Negative = 3267-2) Heparin Antibody 0.247 <0.400 Optical Density (test code = 2659) 4T Total Score (test 4 code = 2661) BRANDI (test code = BRANDI) Probability of HIT based on scoring system: 6-8 = High probability; 4-5 = intermediate probability; 0-3 = low probability [facility] [id number] 12:21:31 Test Item Value Reference Range Interpretation Comments Heparin Ab (test code Negative Negative = 3267-2) Heparin Antibody 0.247 <0.400 Optical Density (test code = 2659) 4T Total Score (test 4 code = 2661) BRANDI (test code = BRANDI) Probability of HIT based on scoring system: 6-8 = High probability; 4-5 = intermediate probability; 0-3 = low probability [facility] aartnrkh0094-26-30 12:21:31 Test Item Value Reference Range Interpretation Comments Heparin Ab (test code Negative Negative = 3267-2) Heparin Antibody 0.247 <0.400 Optical Density (test code = 2659) 4T Total Score (test 4 code = 2661) BRANDI (test code = BRANDI) Probability of HIT based on scoring system: 6-8 = High probability; 4-5 = intermediate probability; 0-3 = low probability [facility] [id number] 12:21:31 Test Item Value Reference Range Interpretation Comments Heparin Ab (test code Negative Negative = 3267-2) Heparin Antibody 0.247 <0.400 Optical Density (test code = 2659) 4T Total Score (test 4 code = 2661) BRANDI (test code = BRANDI) Probability of HIT based on scoring system: 6-8 = High probability; 4-5 = intermediate probability; 0-3 = low probability [facility] [id number] 12:21:31 Test Item Value Reference Range Interpretation Comments HEPARIN ANTIBODY (BEAKER) (test code Negative Negative = 646) HEPARIN ANTIBODY OD (BEAKER) (test 0.247 <0.400 code = 2659) 4T TOTAL SCORE (BEAKER) (test code = 4 2661) Probability of HIT based on scoring system: 6-8 = High probability; 4-5 = intermediate probability; 0-3 = low probabilityS[facility] Hospitalkctnxj3724-73-97 08:07:00 Test Item Value Reference Range Interpretation Comments ABO Grouping (test code = 2588) O Rh Factor (test code = 2589) [facility], [id number] 08:07:00 Test Item Value Reference Range Interpretation Comments ABO Grouping (test code = 2588) O Rh Factor (test code = 2589) [facility]2022-03-14 08:07:00 Test Item Value Reference Range Interpretation Comments ABO Grouping (test code = 2588) O Rh Factor (test code = 2589) [facility]2022-03-14 08:07:00 Test Item Value Reference Range Interpretation Comments ABO Grouping (test code = 2588) O Rh Factor (test code = 2589) [facility]2022-03-14 08:07:00 Test Item Value Reference Range Interpretation Comments ABO Grouping (test code = 2588) O Rh Factor (test code = 2589) [facility], rwujso2058-28-05 08:07:00 Test Item Value Reference Range Interpretation Comments ABO Grouping (test code = 2588) O Rh Factor (test code = 2589) [facility], [id number] 08:07:00 Test Item Value Reference Range Interpretation Comments ABO Grouping (test code = 2588) O Rh Factor (test code = 2589) [facility]2022-03-14 08:07:00 Test Item Value Reference Range Interpretation Comments ABO Grouping (test code = 2588) O Rh Factor (test code = 2589) [facility]2022-03-14 08:07:00 Test Item Value Reference Range Interpretation Comments ABO Grouping (test code = 2588) O Rh Factor (test code = 2589) [facility]2022-03-14 08:07:00 Test Item Value Reference Range Interpretation Comments ABO Grouping (test code = 2588) O Rh Factor (test code = 2589) [facility]2022-03-14 08:07:00 Test Item Value Reference Range Interpretation Comments ABO Grouping (test code = 2588) O Rh Factor (test code = 2589) [facility] [id number] 08:07:00 Test Item Value Reference Range Interpretation Comments ABO Grouping (test code = 2588) O Rh Factor (test code = 2589) [facility] CenterBAS[facility]OLIC [id number] 05:19:52 Test Item Value Reference Range Interpretation [...] S NOT APPLICABLE FOR DIALYSIS PATIEN TS. Anthropologist ID - LIANA [id number] 05:09:04 Test Item Value Reference Range Interpretation Comments PHOSPHORUS (BEAKER) (test code = 4.1 mg/dL 2.3-4.7 604) Anthropologist ID - LIANA RABFJHJNNB9439-11-82 05:09:03 Test Item Value Reference Range Interpretation Comments MAGNESIUM (BEAKER) (test code = 2.0 mg/dL 1.6-2.6 627) Anthropologist ID - LIANA LPT/[id number] 04:53:34 Test Item Value Reference Interpretation Comments [...] PTT (test code = 32.5 See_Comment [Automated 71465-6) message] The system which generated this result [...] valves. Lab Interpretation Normal (test code = 23845-8) [facility]/pTGK7007-29-62 04:53:34 Test Item Value Reference Interpretation Comments [...] PTT (test code = 32.5 See_Comment [Automated 55611-2) message] The system which generated this result [...] valves. Lab Interpretation Normal (test code = 20867-0) [facility]/hMGP7615-48-84 04:53:34 Test Item Value Reference Interpretation Comments [...] PTT (test code = 32.5 See_Comment [Automated 80038-3) message] The system which generated this result [...] valves. Lab Interpretation Normal (test code = 83889-9) [facility]/[id number] 04:53:34 Test Item Value Reference Interpretation Comments [...] PTT (test code = 32.5 See_Comment [Automated 31024-4) message] The system which generated this result [...] valves. Lab Interpretation Normal (test code = 06056-9) [id number] 04:53:34 Test Item Value Reference Interpretation Comments [...] PTT (test code = 32.5 See_Comment [Automated 09964-2) message] The system which generated this result [...] valves. Lab Interpretation Normal (test code = 42979-8) [facility]/[id number] 04:53:34 Test Item Value Reference Interpretation Comments [...] PTT (test code = 32.5 See_Comment [Automated 02071-0) message] The system which generated this result [...] valves. Lab Interpretation Normal (test code = 61807-9) [facility]/[id number] 04:53:34 Test Item Value Reference Interpretation Comments [...] PTT (test code = 32.5 See_Comment [Automated 11630-8) message] The system which generated this result [...] valves. Lab Interpretation Normal (test code = 13959-2) [facility]/[id number] 04:53:34 Test Item Value Reference Interpretation Comments [...] PTT (test code = 32.5 See_Comment [Automated 76954-3) message] The system which generated this result [...] valves. Lab Interpretation Normal (test code = 15611-6) [facility]/[id number] 04:53:34 Test Item Value Reference Interpretation Comments [...] PTT (test code = 32.5 See_Comment [Automated 49630-1) message] The system which generated this result [...] valves. Lab Interpretation Normal (test code = 46081-6) [facility]/[id number] 04:53:34 Test Item Value Reference Interpretation Comments [...] PTT (test code = 32.5 See_Comment [Automated 39036-7) message] The system which generated this result [...] valves. Lab Interpretation Normal (test code = 54169-1) [facility]/[id number] 04:53:34 Test Item Value Reference Interpretation Comments Range Protime (test code = 13.7 See_Comment [Autom ated [employer]2-2) message] The system which generated this result transmitted reference range : 11.9 - 14.2 seconds. The reference range was not used to interpret this result as normal/abnormal . INR (test code = 1.07 See_Comment [Automated Zolvers1-6) message] The system which generated this result transmitted reference range : <=5.90. The reference range was not used to interpret this result as normal/abnormal . PTT (test code = 32.5 See_Comment [Automated 30763-8) message] The system which generated this result [...] valves. Lab Interpretation Normal (test code = 53079-1) [facility]/[id number] 04:53:34 Test Item Value Reference Interpretation Comments [...] PTT (test code = 32.5 See_Comment [Automated 57218-8) message] The system which generated this result [...] valves. Lab Interpretation Normal (test code = 03605-7) [facility]/[id number] 04:53:34 Test Item Value Reference Range Interpretation [...] mechanical heart valves.CBC W/PLT COUNT & AUTO [id number] 04:46:52 Test Item Value Reference Range Interpretation [...] PERCENT (BEAKER) (test code = 2801) POCT-GLUCOSE [id number] 11:21:11 Test Item Value Reference Range Interpretation Comments POC-GLUCOSE METER 204 mg/dL 70-110 H : TESTED [facility] [facility] 6720 (BEAKER) (test code = [place], 1538) [address]: Anthropologist/Techni kelle ID = [id number] for Meeta Mcfarlane POCT-GLUCOSE [id number] 07:42:50 Test Item Value Reference Range Interpretation Comments POC-GLUCOSE METER 226 mg/dL 70-110 H : [facility] ([facility] (test code = [place], 1538) [address]: Anthropologist/Techni kelle ID = [id number] for Meeta Mcfarlane BASIC METABOLIC [id number] 05:13:30 Test Item Value Reference Range Interpretation [...] S NOT APPLICABLE FOR DIALYSIS PATIEN TS. Anthropologist ID - LIANA [id number] 05:11:53 Test Item Value Reference Range Interpretation Comments PHOSPHORUS (BEAKER) (test code = 3.3 mg/dL 2.3-4.7 604) Anthropologist ID - LIANA [id number] 05:11:52 Test Item Value Reference Range Interpretation Comments MAGNESIUM (BEAKER) (test code = 2.0 mg/dL 1.6-2.6 627) Anthropologist ID - LIANA LCBC W/PLT COUNT & AUTO [id number] 04:23:17 Test Item Value Reference Range Interpretation [...] PERCENT (BEAKER) (test code = 2801) POCT-GLUCOSE [id number] 17:21:48 Test Item Value Reference Range Interpretation Comments POC-GLUCOSE METER 209 mg/dL 70-110 H : TESTED A T [facility] 6720 (BEAKER) (test code = [place], 1538) [address]: Anthropologist/Techni kelle ID = [id number] for PADMINI ALMANZAR POCT-GLUCOSE [id number] 12:56:45 Test Item Value Reference Range Interpretation Comments POC-GLUCOSE METER 81 mg/dL 70-110 : TESTED A T [facility] 6720 (BEAKER) (test code = [place]UD[place], 1538) 224[address]: Anthropologist/Techni kelle ID = [id number] for PADMINI GRAY Wyfmpilu1890-39-95 09:21:04 Test Item Value Reference Range Interpretation Comments Ferritin (test code = 1418.54 ng/mL 5.00-275.00 H 2276-4) BRANDI (test code = BRANDI) Anthropologist ID - HIEN M Lab Interpretation (test Abnormal code = 74117-8) [facility] 09:21:04 Test Item Value Reference Range Interpretation Comments Ferritin (test code = 1418.54 ng/mL 5.00-275.00 H 2276-4) BRANDI (test code = BRANDI) Anthropologist ID - HIEN M Lab Interpretation (test Abnormal code = 73379-9) [facility] 09:21:04 Test Item Value Reference Range Interpretation Comments Ferritin (test code = 1418.54 ng/mL 5.00-275.00 H 2276-4) BRANDI (test code = BRANDI) Anthropologist ID - HIEN M Lab Interpretation (test Abnormal code = 81771-4) [facility]12 09:21:04 Test Item Value Reference Range Interpretation Comments Ferritin (test code = 1418.54 ng/mL 5.00-275.00 H 2276-4) BRANDI (test code = BRANDI) Anthropologist ID - HIEN M Lab Interpretation (test Abnormal code = 48534-9) [facility] 09:21:04 Test Item Value Reference Range Interpretation Comments Ferritin (test code = 1418.54 ng/mL 5.00-275.00 H 2276-4) BRANDI (test code = BRANDI) Anthropologist ID - HIEN M Lab Interpretation (test Abnormal code = 83841-5) [facility]12 09:21:04 Test Item Value Reference Range Interpretation Comments Ferritin (test code = 1418.54 ng/mL 5.00-275.00 H 2276-4) BRANDI (test code = BRANDI) Anthropologist ID - HIEN M Lab Interpretation (test Abnormal code = 79802-7) [facility]2022-03-12 09:21:04 Test Item Value Reference Range Interpretation Comments Ferritin (test code = 1418.54 ng/mL 5.00-275.00 H 2276-4) BRANDI (test code = BRANDI) Anthropologist ID - HIEN M Lab Interpretation (test Abnormal code = 50836-7) [facility]2022-03-12 09:21:04 Test Item Value Reference Range Interpretation Comments Ferritin (test code = 1418.54 ng/mL 5.00-275.00 H 2276-4) BRANDI (test code = BRANDI) Anthropologist ID - HIEN M Lab Interpretation (test Abnormal code = 15581-1) [facility] 09:21:04 Test Item Value Reference Range Interpretation Comments Ferritin (test code = 1418.54 ng/mL 5.00-275.00 H 2276-4) BRANDI (test code = BRANDI) Anthropologist ID - HIEN M Lab Interpretation (test Abnormal code = 85759-1) [facility] 09:21:04 Test Item Value Reference Range Interpretation Comments Ferritin (test code = 1418.54 ng/mL 5.00-275.00 H 2276-4) BRANDI (test code = BRANDI) Anthropologist ID - HIEN M Lab Interpretation (test Abnormal code = 67135-3) [facility] 09:21:04 Test Item Value Reference Range Interpretation Comments Ferritin (test code = 1418.54 ng/mL 5.00-275.00 H 2276-4) BRANDI (test code = BRANDI) Anthropologist ID - HIEN M Lab Interpretation (test Abnormal code = 90624-2) [facility]2022-03-12 09:21:04 Test Item Value Reference Range Interpretation Comments Ferritin (test code = 1418.54 ng/mL 5.00-275.00 H 2276-4) BRANDI (test code = BRANDI) Anthropologist ID - HIEN Hernandes Lab Interpretation (test Abnormal code = 04930-2) [facility]20[facility]-12 09:21:04 Test Item Value Reference Range Interpretation Comments FERRITIN (BEAKER) (test code = 1418.54 ng/mL 5.00-275.00 H 361) Anthropologist NORAH Acostaon, TIBC, % sat. (without ferritin)2021-06-13 09:01:39 Test Item Value Reference Range Interpretation Comments Iron (test code = 2498-4) 75.0 ug/dL 40.0-160.0 TIBC (test code = 2500-7) 145 ug/dL 250-450 L Iron % Saturation (test 52 % 20-55 code = 2502-3) BRANDI (test code = BRANDI) Anthropologist ID - HIEN M Lab Interpretation (test Abnormal code = 56738-9) [facility], TIBC, % sat. (without ferritin)2021-06-13 09:01:39 Test Item Value Reference Range Interpretation Comments Iron (test code = 2498-4) 75.0 ug/dL 40.0-160.0 TIBC (test code = 2500-7) 145 ug/dL 250-450 L Iron % Saturation (test 52 % 20-55 code = 2502-3) BRANDI (test code = BRANDI) Anthropologist ID - HIEN Hernandes Lab Interpretation (test Abnormal code = 42284-5) [facility], TIBC, % sat. (without ferritin)2021-06-13 09:01:39 Test Item Value Reference Range Interpretation Comments Iron (test code = 2498-4) 75.0 ug/dL 40.0-160.0 TIBC (test code = 2500-7) 145 ug/dL 250-450 L Iron % Saturation (test 52 % 20-55 code = 2502-3) BRANDI (test code = BRANDI) Anthropologist ID - HIEN Hernandes Lab Interpretation (test Abnormal code = 24821-6) [facility], TIBC, % sat. (without ferritin)2021-06-13 09:01:39 Test Item Value Reference Range Interpretation Comments Iron (test code = 2498-4) 75.0 ug/dL 40.0-160.0 TIBC (test code = 2500-7) 145 ug/dL 250-450 L Iron % Saturation (test 52 % 20-55 code = 2502-3) BRANDI (test code = BRANDI) Anthropologist ID - HIEN M Lab Interpretation (test Abnormal code = 28118-6) [facility], TIBC, % sat. (without ferritin)2021-06-13 09:01:39 Test Item Value Reference Range Interpretation Comments Iron (test code = 2498-4) 75.0 ug/dL 40.0-160.0 TIBC (test code = 2500-7) 145 ug/dL 250-450 L Iron % Saturation (test 52 % 20-55 code = 2502-3) BRANDI (test code = BRANDI) Anthropologist ID - HIEN M Lab Interpretation (test Abnormal code = 88029-1) [facility], TIBC, % sat. (without ferritin)2021-06-13 09:01:39 Test Item Value Reference Range Interpretation Comments Iron (test code = 2498-4) 75.0 ug/dL 40.0-160.0 TIBC (test code = 2500-7) 145 ug/dL 250-450 L Iron % Saturation (test 52 % 20-55 code = 2502-3) BRANDI (test code = BRANDI) Anthropologist ID - HIEN M Lab Interpretation (test Abnormal code = 34015-5) [facility], TIBC, % sat. (without ferritin)2021-06-13 09:01:39 Test Item Value Reference Range Interpretation Comments Iron (test code = 2498-4) 75.0 ug/dL 40.0-160.0 TIBC (test code = 2500-7) 145 ug/dL 250-450 L Iron % Saturation (test 52 % 20-55 code = 2502-3) BRANDI (test code = BRANDI) Anthropologist ID - HIEN M Lab Interpretation (test Abnormal code = 57335-3) [facility], TIBC, % sat. (without ferritin)2021-06-13 09:01:39 Test Item Value Reference Range Interpretation Comments Iron (test code = 2498-4) 75.0 ug/dL 40.0-160.0 TIBC (test code = 2500-7) 145 ug/dL 250-450 L Iron % Saturation (test 52 % 20-55 code = 2502-3) BRANDI (test code = BRANDI) Anthropologist ID - HIEN M Lab Interpretation (test Abnormal code = 14024-9) [facility], TIBC, % sat. (without ferritin)2021-06-13 09:01:39 Test Item Value Reference Range Interpretation Comments Iron (test code = 2498-4) 75.0 ug/dL 40.0-160.0 TIBC (test code = 2500-7) 145 ug/dL 250-450 L Iron % Saturation (test 52 % 20-55 code = 2502-3) BRANDI (test code = BRANDI) Anthropologist ID - HIEN M Lab Interpretation (test Abnormal code = 99477-4) [facility], TIBC, % sat. (without ferritin)2021-06-13 09:01:39 Test Item Value Reference Range Interpretation Comments Iron (test code = 2498-4) 75.0 ug/dL 40.0-160.0 TIBC (test code = 2500-7) 145 ug/dL 250-450 L Iron % Saturation (test 52 % 20-55 code = 2502-3) BRANDI (test code = BRANDI) Anthropologist ID - HIEN M Lab Interpretation (test Abnormal code = 43970-4) [facility], TIBC, % sat. (without ferritin)2021-06-13 09:01:39 Test Item Value Reference Range Interpretation Comments Iron (test code = 2498-4) 75.0 ug/dL 40.0-160.0 TIBC (test code = 2500-7) 145 ug/dL 250-450 L Iron % Saturation (test 52 % 20-55 code = 2502-3) BRANDI (test code = BRANDI) Anthropologist ID - HIEN M Lab Interpretation (test Abnormal code = 44357-3) [facility], TIBC, % sat. (without ferritin)2021-06-13 09:01:39 Test Item Value Reference Range Interpretation Comments Iron (test code = 2498-4) 75.0 ug/dL 40.0-160.0 TIBC (test code = 2500-7) 145 ug/dL 250-450 L Iron % Saturation (test 52 % 20-55 code = 2502-3) BRANDI (test code = BRANDI) Anthropologist ID Bassam Hernandes Lab Interpretation (test Abnormal code = 84133-4) [facility] % SAT. (WITHOUT FERRITIN)2021-06-13 09:01:39 Test Item Value Reference Range Interpretation Comments IRON (BEAKER) (test code = 547) 75.0 ug/dL 40.0-160.0 TOTAL IRON BINDING CAPACITY 145 ug/dL 250-450 L (BEAKER) (test code = 769) IRON % SATURATION (2) (BEAKER) 52 % 20-55 (test code = 2590) Anthropologist ID Bassam ST[place] MPOCT-GLUCOSE [id number] 08:51:07 Test Item Value Reference Range Interpretation Comments POC-GLUCOSE METER 106 mg/dL 70-110 : TESTED A T [facility] 6720 (BEAKER) (test code = YUDY [place] [facility], 1538) [address]: Anthropologist/Techni kelle ID = [id number] for PADMINI ALMANZAR BASIC METABOLIC [id number] 04:21:54 Test Item Value Reference Range Interpretation [...] S NOT APPLICABLE FOR DIALYSIS PATIEN TS. Anthropologist ID - HIEN [id number] 04:17:34 Test Item Value Reference Range Interpretation Comments MAGNESIUM (BEAKER) (test code = 2.0 mg/dL 1.6-2.6 627) Anthropologist ID - HIEN LIRIANOCCSVJQWJPBY4811-85-32 04:17:34 Test Item Value Reference Range Interpretation Comments PHOSPHORUS (BEAKER) (test code = 3.1 mg/dL 2.3-4.7 604) Anthropologist ID - HIEN MCBC W/PLT COUNT & AUTO [id number] 03:49:10 Test Item Value Reference Range Interpretation [...] (BEAKER) (test code = 2801) SARS-COV2/RT-PCR ([facility])2021-06-13 02:28:08 Test Item Value Reference Range Interpretation Comments SARS-COV2/RT-PCR (test code = Negative Negative 2544604) Negative result for this test determines that [...] 564(g) of the Act.Testing was performed using [employer] SARS-CoV-2 assay.Fact Sheet for Healthcare Providers:https://www.Mobile Backstage.tsumobi/ct/RT SARS-CoV-2 HCP Fact Sheet 51- 118126.pdfFact Sheet for Healthcare Patients:https://www.[employer].tsumobi/ct/RT SARS-CoV-2 Patient Fact Sheet EN 51-576894I2.pdfPOCT-GLUCOSE [id number] 02:01:02 Test Item Value Reference Range Interpretation Comments POC-GLUCOSE METER 98 mg/dL 70-110 : TESTED A T [facility] 6720 (BEAKER) (test code = [place]UDY [place] [facility], 1538) 17675: Anthropologist/Techni kelle ID = [id number] for SREEKANTH ROSS POCT-GLUCOSE [id number] 02:00:06 Test Item Value Reference Range Interpretation Comments POC-GLUCOSE METER 151 mg/dL 70-110 H : TESTED A T [facility] 6720 (BEAKER) (test code = YUDY [place] [facility], 1538) 84627: Anthropologist/Techni kelle ID = [id number] for ALINE ROWE BLOOD [id number] 23:01:20 Test Item Value Reference Range Interpretation Comments CULTURE (BEAKER) (test No growth in 5 days code = 1095) BLOOD [id number] 23:01:19 Test Item Value Reference Range Interpretation Comments CULTURE (BEAKER) (test No growth in 5 days code = 1095) CT, BRAIN, WITHOUT [id number] 08:55:00Unlisted Reason for Exam - Click Yes and Enter Reason Below->No [facility] 1955 [...] MDReport Verified Date/Time: 06/12/2021 08:55:52 [facility] C[facility]V Neuro Reading Room POCT-GLUCOSE [id number] 07:42:49 Test Item Value Reference Range Interpretation Comments POC-GLUCOSE METER 113 mg/dL 70-110 H : TESTED A T [facility] 6720 (BioCriticaAKER) (test code = [facility], 153) 33958: Anthropologist/Techni kelle ID = [id number] for Sheryl Enciso POCT-GLUCOSE [id number] 07:42:05 Test Item Value Reference Range Interpretation Comments POC-GLUCOSE METER 131 mg/dL 70-110 H : TESTED A T [facility] 6720 (BEAKER) (test code = [facility], 153) 10465: Anthropologist/Techni kelle ID = [id number] for JI MONTAÑO POCT-GLUCOSE [id number] 07:32:16 Test Item Value Reference Range Interpretation Comments POC-GLUCOSE METER 127 mg/dL 70-110 H : TESTED A T [facility] 6720 (BEAKER) (test code = [facility], 153) 32146: Anthropologist/Techni kelle ID = [id number] for GURINDER VILLA CT, CTANGIO [id number] 03:03:00Reason for exam:->Symptoms onset less than 6 hours and NIHSS 6 or greater [facility] : 1955 Sex: [...] the film. IMPRESSION: No evidence of a [place] proximal branch vessel occlusion or [...] Nikole Baron MDReport Verified Date/Time: 06/12/2021 03:03:56 [facility], CAR[place], [id number] 03:03:00Reason for exam:- >Symptoms onset less than 6 hours and NIHSS 6 or greater [facility] : 1955 Sex: FFINAL REPORT [...] the film. IMPRESSION: No evidence of a [place] proximal branch vessel occlusion or [...] Nikole Baron Verified Date/Time: 06/12/2021 03:03:56 PROTHROMBIN TIME/[id number] 01:46:16 Test Item Value Reference Range Interpretation Comments PROTIME (BEAKER) 15.0 seconds 11.9-14.2 H (test code = 759) INR (BEAKER) (test 1.20 See_Comment [Automat ed message] code = 370) The system [employer] generated this result transmitted ref erence range: <=5.90. The reference range was not used to int erpret this result as normal/abnormal . RECOMMENDED COUMADIN/WARFARIN INR THERAPY RANGESSTANDARD DOSE: 2.0 - 3.0 Includes: PROPHYLAXIS for venous thrombosis, systemic embolization; TREATMENT for venous thrombosis and/or pulmonary embolus.HIGH RISK: Target INR is 2.5-3.5 for patients with mechanical heart valves.CBC W/PLT COUNT & AUTO [id number] 01:45:34 Test Item Value Reference Range Interpretation [...] (test code = 2801) CT, BRAIN, WITHOUT [id number] 01:38:00Unlisted Reason for Exam - Click Yes and Enter Reason Below->No [facility] [place] : 1955 Sex: FFINAL REPORT CT Head [...] Date/Time: 06/12/2021 01:38:35 High Sensitivity Troponin I ([facility]/Jin Only)2021-06-12 01:35:31 Test Item Value Reference Range Interpretation Comments Troponin I HS (test 231 pg/ml See_Comment H [Automa levi code = 46629-7) message] The system which generated this result transmitted reference range : <=17. The reference range was not used to interpret this result as normal/abnormal . BRANDI (test code = Anthropologist ID - BRANDI) DBThe ADMISSION NURSE STAT High Sensitivity Troponin-I results should be used in conjunction with other diagnostic information such as ECG, clinical observations and information, and patient symptoms to aid in the diagnosis of DC. Lab Interpretation Abnormal (test code = 78635-6) [facility]in Only) 2021-06-12 01:35:31 Test Item Value Reference Range Interpretation Comments Troponin I HS (test 231 pg/ml See_Comment H [Automa levi code = 52660-2) message] The system which generated this result transmitted reference range : <=17. The reference range was not used to interpret this result as normal/abnormal . BRANDI (test code = Anthropologist ID - BRANDI) DBThe ADMISSION NURSE STAT High Sensitivity Troponin-I results should be used in conjunction with other diagnostic information such as ECG, clinical observations and information, and patient symptoms to aid in the diagnosis of DC. Lab Interpretation Abnormal (test code = 43951-8) [facility] ([facility] Only) 2021-06-12 01:35:31 Test Item Value Reference Range Interpretation Comments Troponin I HS (test 231 pg/ml See_Comment H [Automa levi code = 43002-2) message] The system which generated this result transmitted reference range : <=17. The reference range was not used to interpret this result as normal/abnormal . BRANDI (test code = Anthropologist ID - BRANDI) DBThe ADMISSION NURSE STAT High Sensitivity Troponin-I results should be used in conjunction with other diagnostic information such as ECG, clinical observations and information, and patient symptoms to aid in the diagnosis of DC. Lab Interpretation Abnormal (test code = 39055-1) [facility] ([facility] Only) 2021-06-12 01:35:31 Test Item Value Reference Range Interpretation Comments Troponin I HS (test 231 pg/ml See_Comment H [Automa levi code = 99066-4) message] The system which generated this result transmitted reference range : <=17. The reference range was not used to interpret this result as normal/abnormal . BRANDI (test code = Anthropologist ID - BRANDI) DBThe ADMISSION NURSE STAT High Sensitivity Troponin-I results should be used in conjunction with other diagnostic information such as ECG, clinical observations and information, and patient symptoms to aid in the diagnosis of DC. Lab Interpretation Abnormal (test code = 95815-0) [facility] ([facility] Only) 2021-06-12 01:35:31 Test Item Value Reference Range Interpretation Comments Troponin I HS (test 231 pg/ml See_Comment H [Automa levi code = 02805-5) message] The system which generated this result transmitted reference range : <=17. The reference range was not used to interpret this result as normal/abnormal . BRANDI (test code = Anthropologist ID - BRANDI) DBThe ADMISSION NURSE STAT High Sensitivity Troponin-I results should be used in conjunction with other diagnostic information such as ECG, clinical observations and information, and patient symptoms to aid in the diagnosis of DC. Lab Interpretation Abnormal (test code = 20554-5) [facility] ([facility] Only) 2021-06-12 01:35:31 Test Item Value Reference Range Interpretation Comments Troponin I HS (test 231 pg/ml See_Comment H [Automa levi code = 35208-1) message] The system which generated this result transmitted reference range : <=17. The reference range was not used to interpret this result as normal/abnormal . BRANDI (test code = Anthropologist ID - BRANDI) DBT ADMISSION NURSE STAT High Sensitivity Troponin-I results should be used in conjunction with other diagnostic information such as ECG, clinical observations and information, and patient symptoms to aid in the diagnosis of DC. Lab Interpretation Abnormal (test code = 25659-7) [facility] ([facility] Only) 2021-06-12 01:35:31 Test Item Value Reference Range Interpretation Comments Troponin I HS (test 231 pg/ml See_Comment H [Automa levi code = 06562-1) message] The system which generated this result transmitted reference range : <=17. The reference range was not used to interpret this result as normal/abnormal . BRANDI (test code = Anthropologist ID - BRANDI) DBThe ADMISSION NURSE STAT High Sensitivity Troponin-I results should be used in conjunction with other diagnostic information such as ECG, clinical observations and information, and patient symptoms to aid in the diagnosis of DC. Lab Interpretation Abnormal (test code = 40747-4) [facility] ([facility] [facility]/Jin Only) 2021-06-12 01:35:31 Test Item Value Reference Range Interpretation Comments Troponin I HS (test 231 pg/ml See_Comment H [Automa levi code = 16254-3) message] The system which generated this result transmitted reference range : <=17. The reference range was not used to interpret this result as normal/abnormal . BRANDI (test code = Anthropologist ID - BRANDI) DBThe ADMISSION NURSE STAT High Sensitivity Troponin-I results should be used in conjunction with other diagnostic information such as ECG, clinical observations and information, and patient symptoms to aid in the diagnosis of DC. Lab Interpretation Abnormal (test code = 58560-1) [facility] ([facility]Jin Only[facility] 2021-06-12 01:35:31 Test Item Value Reference Range Interpretation Comments Troponin I HS (test 231 pg/ml See_Comment H [Automa levi code = 19053-5) message] The system which generated this result transmitted reference range : <=17. The reference range was not used to interpret this result as normal/abnormal . BRANDI (test code = Anthropologist ID - BRANDI) DBThe ADMISSION NURSE STAT High Sensitivity Troponin-I results should be used in conjunction with other diagnostic information such as ECG, clinical observations and information, and patient symptoms to aid in the diagnosis of DC. Lab Interpretation Abnormal (test code = 61619-9) [facility] ([facility]Jin Only) 2021-06-12 01:35:31 Test Item Value Reference Range Interpretation Comments Troponin I HS (test 231 pg/ml See_Comment H [Automa levi code = 56315-0) message] The system which generated this result transmitted reference range : <=17. The reference range was not used to interpret this result as normal/abnormal . BRANDI (test code = Anthropologist ID - BRANDI) DBThe ADMISSION NURSE STAT High Sensitivity Troponin-I results should be used in conjunction with other diagnostic information such as ECG, clinical observations and information, and patient symptoms to aid in the diagnosis of DC. Lab Interpretation Abnormal (test code = 73728-7) [facility] ([facility]/Jin Only) 2021-06-12 01:35:31 Test Item Value Reference Range Interpretation Comments Troponin I HS (test 231 pg/ml See_Comment H [Automa levi code = 36792-4) message] The system which generated this result transmitted reference range : <=17. The reference range was not used to interpret this result as normal/abnormal . BRANDI (test code = Anthropologist ID - BRANDI) DBThe ADMISSION NURSE STAT High Sensitivity Troponin-I results should be used in conjunction with other diagnostic information such as ECG, clinical observations and information, and patient symptoms to aid in the diagnosis of DC. Lab Interpretation Abnormal (test code = 01924-0) [facility] ([facility]Jin Only) 2021-06-12 01:35:31 Test Item Value Reference Range Interpretation Comments Troponin I HS (test 231 pg/ml See_Comment H [Automa levi code = 22179-1) message] The system which generated this result transmitted reference range : <=17. The reference range was not used to interpret this result as normal/abnormal . BRANDI (test code = Anthropologist ID - BRANDI) DBThe ADMISSION NURSE STAT High Sensitivity Troponin-I results should be used in conjunction with other diagnostic information such as ECG, clinical observations and information, and patient symptoms to aid in the diagnosis of DC. Lab Interpretation Abnormal (test code = 47579-6) [facility] TROPONIN [id number] 01:35:31 Test Item Value Reference Range Interpretation Comments HIGH SENSITIVITY 231 pg/ml See_Comment H [Automated message] TROPONIN I (test code The sy stem which = 6353850) generated this result transmitted ref erence range: <=17. Th e reference range was not used to int erpret this result as normal/abnormal . Anthropologist ID - DBThe ADMISSION NURSE STAT High Sensitivity Troponin-I results should be used in conjunctionwith other diagnostic information such as ECG, clinical observations and information, and patient symptoms to aid in the diagnosis of DC.BASIC METABOLIC [id number] 01:29:11 Test Item Value Reference Range Interpretation [...] S NOT APPLICABLE FOR DIALYSIS PATIEN TS. Anthropologist ID - [id number] 01:28:34 Test Item Value Reference Range Interpretation Comments PHOSPHORUS (BEAKER) 4.6 mg/dL 2.3-4.7 Specimen slightly (test code = 604) hemolyzed Anthropologist ID - [id number] 01:28:33 Test Item Value Reference Range Interpretation Comments MAGNESIUM (BEAKER) 2.2 mg/dL 1.6-2.6 Specimen slightly (test code = 627) hemolyzed Anthropologist ID - DBLactic acid, [id number] 01:26:32 Test Item Value Reference Range Interpretation Comments Lactate, Venous (test code = 0.87 mmol/L 0.50-2.20 2872) BRANDI (test code = BRANDI) Anthropologist ID - DB Lab Interpretation (test Normal code = 20614-7) [facility] California[facility], [id number] 01:26:32 Test Item Value Reference Range Interpretation Comments Lactate, Venous (test code = 0.87 mmol/L 0.50-2.20 2872) BRANDI (test code = BRANDI) Anthropologist ID - DB Lab Interpretation (test Normal code = 60799-2) [facility] California[facility], [id number] 01:26:32 Test Item Value Reference Range Interpretation Comments Lactate, Venous (test code = 0.87 mmol/L 0.50-2.20 2872) BRANDI (test code = BRANDI) Anthropologist ID - DB Lab Interpretation (test Normal code = 82702-5) [facility] CaliforniaL[facility] acid, [id number] 01:26:32 Test Item Value Reference Range Interpretation Comments Lactate, Venous (test code = 0.87 mmol/L 0.50-2.20 2872) BRANDI (test code = BRANDI) Anthropologist ID - DB Lab Interpretation (test Normal code = 45454-4) [facility] California[facility], [id number] 01:26:32 Test Item Value Reference Range Interpretation Comments Lactate, Venous (test code = 0.87 mmol/L 0.50-2.20 2872) BRANDI (test code = BRANDI) Anthropologist ID - DB Lab Interpretation (test Normal code = 73491-0) [facility], [id number] 01:26:32 Test Item Value Reference Range Interpretation Comments Lactate, Venous (test code = 0.87 mmol/L 0.50-2.20 2872) BRANDI (test code = BRANDI) Anthropologist ID - DB Lab Interpretation (test Normal code = 25864-4) [facility], [id number] 01:26:32 Test Item Value Reference Range Interpretation Comments Lactate, Venous (test code = 0.87 mmol/L 0.50-2.20 2872) BRANDI (test code = BRANDI) Anthropologist ID - DB Lab Interpretation (test Normal code = 52727-3) [facility], [id number] 01:26:32 Test Item Value Reference Range Interpretation Comments Lactate, Venous (test code = 0.87 mmol/L 0.50-2.20 2872) BRANDI (test code = BRANDI) Anthropologist ID - DB Lab Interpretation (test Normal code = 98745-0) [facility], [id number] 01:26:32 Test Item Value Reference Range Interpretation Comments Lactate, Venous (test code = 0.87 mmol/L 0.50-2.20 2872) BRANDI (test code = BRANDI) Anthropologist ID - DB Lab Interpretation (test Normal code = 99988-9) [facility], [id number] 01:26:32 Test Item Value Reference Range Interpretation Comments Lactate, Venous (test code = 0.87 mmol/L 0.50-2.20 2872) BRANDI (test code = BRANDI) Anthropologist ID - DB Lab Interpretation (test Normal code = 14898-3) [facility], [id number] 01:26:32 Test Item Value Reference Range Interpretation Comments Lactate, Venous (test code = 0.87 mmol/L 0.50-2.20 2872) BRANDI (test code = BRANDI) Anthropologist ID - DB Lab Interpretation (test Normal code = 31237-5) [facility] CaliforniaL[facility] acid, [id number] 01:26:32 Test Item Value Reference Range Interpretation Comments Lactate, Venous (test code = 0.87 mmol/L 0.50-2.20 2872) BRANDI (test code = BRANDI) Anthropologist ID - DB Lab Interpretation (test Normal code = 92290-3) [facility] CaliforniaLACTIC ACID, [id number] 01:26:32 Test Item Value Reference Range Interpretation Comments LACTATE BLOOD VENOUS (2) (BEAKER) 0.87 mmol/L 0.50-2.20 (test code = 2872) Anthropologist ID - DBPOCT-GLUCOSE [id number] 16:24:28 Test Item Value Reference Range Interpretation Comments POC-GLUCOSE METER 244 mg/dL 70-110 H : TESTED A T [facility] 6720 (BEAKER) (test code = [facility], 1538) [address]: Anthropologist/Techni kelle ID = [id number] for Re yes, Maranda POCT-GLUCOSE [id number] 11:29:05 Test Item Value Reference Range Interpretation Comments POC-GLUCOSE METER 168 mg/dL 70-110 H : TESTED A T [facility] 6720 (BEAKER) (test code = [facility], 1538) 90394: Anthropologist/Techni kelle ID = [id number] for Re yes, Maranda POCT-GLUCOSE [id number] 06:45:50 Test Item Value Reference Range Interpretation Comments POC-GLUCOSE METER 132 mg/dL 70-110 H : TESTED A T [facility] 6720 (BEAKER) (test code = [facility], 1538) [address]: Anthropologist/Techni kelle ID = [id number] for UG MARÍASHANELLE GHADA BASIC METABOLIC [id number] 05:08:08 Test Item Value Reference Range Interpretation [...] S NOT APPLICABLE FOR DIALYSIS PATIEN TS. Anthropologist ID - HIEN [id number] 04:56:38 Test Item Value Reference Range Interpretation Comments MAGNESIUM (BEAKER) (test code = 1.9 mg/dL 1.6-2.6 627) Anthropologist ID - HIEN [id number] 04:56:38 Test Item Value Reference Range Interpretation Comments PHOSPHORUS (BEAKER) (test code = 3.7 mg/dL 2.3-4.7 604) Anthropologist ID - HIEN MCBC W/PLT COUNT & AUTO [id number] 04:33:28 Test Item Value Reference Range Interpretation [...] = 2801) CBC W/PLT COUNT & AUTO [id number] 22:57:11 Test Item Value Reference Range Interpretation [...] = 2801) RAD, CHEST, 1 VIEW, NON [id number] 22:44:00Reason for exam:- >dyspneaShould this be performed at the bedside?->Yes [facility] : 1955 Sex: FFINAL REPORT History: dyspnea. [...] Electronically signed by: BRAXTON QUINTERO M.D. on 0:44 [id number] 22:43:07 Test Item Value Reference Range Interpretation Comments POC-Glucose (test code = 118 mg/dL 70-110 H : T ESTED AT [facility] 1855) [address] [place] [address], [address]: Anthropologist/Techni kelle ID = [id number] for MARFIL, JOSE ARMANDO Lab Interpretation (test Abnormal code = 06394-9) [facility]2022-03-09 22:43:07 Test Item Value Reference Range Interpretation Comments POC-Glucose (test code = 118 mg/dL 70-110 H : [facility] [address] [place] [address], [address]: Anthropologist/Techni kelle ID = [id number] for MARFIL, JOSE ARMANDO Lab Interpretation (test Abnormal code = 35719-1) [facility] [id number] 22:43:07 Test Item Value Reference Range Interpretation Comments POC-Glucose (test code = 118 mg/dL 70-110 H : T ESTED AT [facility] 1855) [address] [place] [address], [address]: Anthropologist/Techni kelle ID = [id number] for MARFIL, JOSE ARMANDO Lab Interpretation (test Abnormal code = 27178-1) [facility]2022-03-09 22:43:07 Test Item Value Reference Range Interpretation Comments POC-Glucose (test code = 118 mg/dL 70-110 H : [facility] [address] [place] [address], [address]: Anthropologist/Techni kelle ID = [id number] for MARFIL, JOSE ARMANDO Lab Interpretation (test Abnormal code = 54182-5) [facility]2022-03-09 22:43:07 Test Item Value Reference Range Interpretation Comments POC-Glucose (test code = 118 mg/dL 70-110 H : [facility] [address] [place] [address], [address]: Anthropologist/Techni kelle ID = [id number] for MARFIL, JOSE ARMANDO Lab Interpretation (test Abnormal code = 23127-1) [facility]2022-03-09 22:43:07 Test Item Value Reference Range Interpretation Comments POC-Glucose (test code = 118 mg/dL 70-110 H : T ESTED AT [facility] 1855) [address] [place] [address], [address]: Anthropologist/Techni kelle ID = [id number] for MARFIL, JOSE ARMANDO Lab Interpretation (test Abnormal code = 84193-5) [facility]2022-03-09 22:43:07 Test Item Value Reference Range Interpretation Comments POC-Glucose (test code = 118 mg/dL 70-110 H : [facility] [address] [place] [address], [address]: Anthropologist/Techni kelle ID = [id number] for MARFIL, JOSE ARMADNO Lab Interpretation (test Abnormal code = 96417-8) [facility]2022-03-09 22:43:07 Test Item Value Reference Range Interpretation Comments POC-Glucose (test code = 118 mg/dL 70-110 H : [facility] [address] [place] [address], [address]: Anthropologist/Techni kelle ID = [id number] for MARFIL, JOSE ARMANDO Lab Interpretation (test Abnormal code = 16231-2) [facility]2022-03-09 22:43:07 Test Item Value Reference Range Interpretation Comments POC-Glucose (test code = 118 mg/dL 70-110 H : T ESTED AT [facility] 1855) [address] [place] [address], [address]: Anthropologist/Techni kelle ID = [id number] for MARFIL, JOSE ARMANDO Lab Interpretation (test Abnormal code = 71716-4) [facility] HospitalVZWRHSP7667-21-27 22:43:07 Test Item Value Reference Range Interpretation Comments POC-Glucose (test code = 118 mg/dL 70-110 H : T ESTED AT [facility] 1855) [address] [place] [address], [address]: Anthropologist/Techni kelle ID = [id number] for MARFIL, JOSE ARMANDO Lab Interpretation (test Abnormal code = 40238-2) [facility] [id number] 22:43:07 Test Item Value Reference Range Interpretation Comments POC-Glucose (test code = 118 mg/dL 70-110 H : T ESTED AT [facility] 1855) [address] [place] [address], [address]: Anthropologist/Techni kelle ID = [id number] for MARFIL, JOSE ARMANDO Lab Interpretation (test Abnormal code = 16625-3) [facility] [id number] 22:43:07 Test Item Value Reference Range Interpretation Comments POC-Glucose (test code = 118 mg/dL 70-110 H : T ESTED AT [facility] 1855) [address] [place] [address], [address]: Anthropologist/Techni kelle ID = [id number] for MARFIL, JOSE ARMANDO Lab Interpretation (test Abnormal code = 12905-2) [facility] HospitalPNVVFVI8342-73-06 22:43:07 Test Item Value Reference Range Interpretation Comments POC-GLUCOSE (BEAKER) 118 mg/dL 70-110 H : TESTE D AT [facility] 67 (test code = 1855) [facility], [address]: Anthropologist/Techni kelle ID = [id number] for MARF IL, JOSE ARMANDO PKSS-[id number] 22:43:06 Test Item Value Reference Range Interpretation Comments POC-Hemoglobin (test code 8.2 g/dL 12.0-15.0 L : TESTED AT [facility] = 1856) [address] [place] [address], [address]: Anthropologist/Techni kelle ID = [id number] for MARFIL, JOSE ARMANDO Lab Interpretation (test Abnormal code = 70872-8) [facility]-[id number] 22:43:06 Test Item Value Reference Range Interpretation Comments POC-Hematocrit (test code 24 % 36-45 L : = 1857) Anthropologist/Techni kelle ID = [id number] for MARFIL, JOSE ARMANDO Lab Interpretation (test Abnormal code = 02863-9) [facility]-[id number] 22:43:06 Test Item Value Reference Range Interpretation Comments POC-Hemoglobin (test code 8.2 g/dL 12.0-15.0 L : TESTED AT [facility] = 1856) [address] [place] [address], [address]: Anthropologist/Techni kelle ID = [id number] for MARFIL, JOSE ARMANDO Lab Interpretation (test Abnormal code = 59766-5) [facility]-[id number] 22:43:06 Test Item Value Reference Range Interpretation Comments POC-Hematocrit (test code 24 % 36-45 L : = 1857) Anthropologist/Techni kelle ID = [id number] for MARFIL, JOSE ARMANDO Lab Interpretation (test Abnormal code = 17984-3) [facility]-[id number] 22:43:06 Test Item Value Reference Range Interpretation Comments POC-Hemoglobin (test code 8.2 g/dL 12.0-15.0 L : TESTED AT [facility] = 1856) [address] [place] [address], [address]: Anthropologist/Techni kelle ID = [id number] for MARFIL, JOSE ARMANDO Lab Interpretation (test Abnormal code = 42871-2) [facility]-[id number] 22:43:06 Test Item Value Reference Range Interpretation Comments POC-Hematocrit (test code 24 % 36-45 L : = 1857) Anthropologist/Techni kelle ID = [id number] for MARFIL, JOSE ARMANDO Lab Interpretation (test Abnormal code = 55053-2) [facility]-[id number] 22:43:06 Test Item Value Reference Range Interpretation Comments POC-Hemoglobin (test code 8.2 g/dL 12.0-15.0 L : TESTED AT [facility] = 1856) [address] [place] [address], [address]: Anthropologist/Techni kelle ID = [id number] for MARFIL, JOSE ARMANDO Lab Interpretation (test Abnormal code = 86095-0) [facility]-[id number] 22:43:06 Test Item Value Reference Range Interpretation Comments POC-Hematocrit (test code 24 % 36-45 L : = 1857) Anthropologist/Techni kelle ID = [id number] for MARFIL, JOSE ARMANDO Lab Interpretation (test Abnormal code = 86104-0) [facility]-[id number] 22:43:06 Test Item Value Reference Range Interpretation Comments POC-Hemoglobin (test code 8.2 g/dL 12.0-15.0 L : TESTED AT [facility] = 1856) [address] [place] [address], [address]: Anthropologist/Techni kelle ID = [id number] for MARFIL, JOSE ARMANDO Lab Interpretation (test Abnormal code = 07003-2) [facility]-[id number] 22:43:06 Test Item Value Reference Range Interpretation Comments POC-Hematocrit (test code 24 % 36-45 L : = 1857) Anthropologist/Techni eklle ID = [id number] for MARFIL, JOSE ARMANDO Lab Interpretation (test Abnormal code = 42186-2) [facility]-[id number] 22:43:06 Test Item Value Reference Range Interpretation Comments POC-Hemoglobin (test code 8.2 g/dL 12.0-15.0 L : TESTED AT [facility] = 1856) [address] [place] [address], [address]: Anthropologist/Techni kelle ID = [id number] for MARFIL, JOSE ARMANDO Lab Interpretation (test Abnormal code = 59386-7) [facility]-[id number] 22:43:06 Test Item Value Reference Range Interpretation Comments POC-Hematocrit (test code 24 % 36-45 L : = 1857) Anthropologist/Techni kelle ID = [id number] for MARFIL, JOSE ARMANDO Lab Interpretation (test Abnormal code = 05965-2) [facility]-[id number] 22:43:06 Test Item Value Reference Range Interpretation Comments POC-Hemoglobin (test code 8.2 g/dL 12.0-15.0 L : TESTED AT [facility] = 1856) [address] [place] [address], [address]: Anthropologist/Techni kelle ID = [id number] for MARFIL, JOSE ARMANDO Lab Interpretation (test Abnormal code = 08984-7) [facility][id number] 22:43:06 Test Item Value Reference Range Interpretation Comments POC-Hematocrit (test code 24 % 36-45 L : = 1857) Anthropologist/Techni kelle ID = [id number] for MARFIL, JOSE ARMANDO Lab Interpretation (test Abnormal code = 43337-0) [facility]-[id number] 22:43:06 Test Item Value Reference Range Interpretation Comments POC-Hemoglobin (test code 8.2 g/dL 12.0-15.0 L : TESTED AT [facility] = 1856) [address] [place] [address], [address]: Anthropologist/Techni kelle ID = [id number] for MARFIL, JOSE ARMANDO Lab Interpretation (test Abnormal code = 13027-0) [facility]-[id number] 22:43:06 Test Item Value Reference Range Interpretation Comments POC-Hematocrit (test code 24 % 36-45 L : = 1857) Anthropologist/Techni eklle ID = [id number] for MARFIL, JOSE ARMANDO Lab Interpretation (test Abnormal code = 70021-8) [facility]-[id number] 22:43:06 Test Item Value Reference Range Interpretation Comments POC-Hemoglobin (test code 8.2 g/dL 12.0-15.0 L : TESTED AT [facility] = 1856) [address] [place] [address], [address]: Anthropologist/Techni kelle ID = [id number] for MARFIL, JOSE ARMANDO Lab Interpretation (test Abnormal code = 96680-4) [facility]-[id number] 22:43:06 Test Item Value Reference Range Interpretation Comments POC-Hematocrit (test code 24 % 36-45 L : = 1857) Anthropologist/Techni kelle ID = [id number] for MARFIL, JOSE ARMANDO Lab Interpretation (test Abnormal code = 29039-6) [facility]-[id number] 22:43:06 Test Item Value Reference Range Interpretation Comments POC-Hemoglobin (test code 8.2 g/dL 12.0-15.0 L : TESTED AT [facility] = 1856) [address] [facility], [address] 30: Anthropologist/Techni kelle ID = [id number] for MARFIL, JOSE ARMANDO Lab Interpretation (test Abnormal code = 03852-0) [facility]-[id number] 22:43:06 Test Item Value Reference Range Interpretation Comments POC-Hematocrit (test code 24 % 36-45 L : = 1857) Anthropologist/Techni kelle ID = [id number] for MARFIL, JOSE ARMANDO Lab Interpretation (test Abnormal code = 60417-2) [facility]-[id number] 22:43:06 Test Item Value Reference Range Interpretation Comments POC-Hemoglobin (test code 8.2 g/dL 12.0-15.0 L : TESTED AT [facility] = 1856) [address] [place] [address], [address]: Anthropologist/Techni kelle ID = [id number] for MARFIL, JOSE ARMANDO Lab Interpretation (test Abnormal code = 64826-8) [facility]-[id number] 22:43:06 Test Item Value Reference Range Interpretation Comments POC-Hematocrit (test code 24 % 36-45 L : = 1857) Anthropologist/Techni kelle ID = [id number] for MARFIL, JOSE ARMANDO Lab Interpretation (test Abnormal code = 11160-0) [facility]-[id number] 22:43:06 Test Item Value Reference Range Interpretation Comments POC-Hemoglobin (test code 8.2 g/dL 12.0-15.0 L : TESTED AT [facility] = 1856) [address] [place] [address], [address]: Anthropologist/Techni kelle ID = [id number] for MARFIL, JOSE ARMANDO Lab Interpretation (test Abnormal code = 20239-8) [facility]-[id number] 22:43:06 Test Item Value Reference Range Interpretation Comments POC-Hematocrit (test code 24 % 36-45 L : = 1857) Anthropologist/Techni kelle ID = [id number] for MARFIL, JOSE ARMANDO Lab Interpretation (test Abnormal code = 58175-3) [facility] California[facility]cgkzgZYPW-[id number] 22:43:06 Test Item Value Reference Range Interpretation Comments POC-HEMOGLOBIN 8.2 g/dL 12.0-15.0 L : TESTED AT [facility] 6720 (AKASH) (test code = [facility], 1856) [address]: Anthropologist/Techni kelle ID = [id number] for MARF IL, JOSE ARMANDO ODDP-[id number] 22:43:06 Test Item Value Reference Range Interpretation Comments POC-HEMATOCRIT 24 % 36-45 L : Anthropologist/Te chnician ID = (AKASH) (test code = 118101 for MARFIL, JOSE ARMANDO 1857) BNS-[id number] 22:43:05 Test Item Value Reference Range Interpretation Comments POC-Potassium (test code 3.4 meq/L 3.6-5.5 L : T ESTED AT [facility] = 1540) [address] [place] [address], [address]: Anthropologist/Techni kelle ID = [id number] for MARFIL, JOSE ARMANDO Lab Interpretation (test Abnormal code = 63558-9) [facility]-[id number] 22:43:05 Test Item Value Reference Range Interpretation Comments POC-Sodium (test code = 137 meq/L 135-148 : TE STED AT [facility] 1542) [address] [place] [address], 770 30: Anthropologist/Techni kelle ID = [id number] for MARFIL, JOSE ARMANDO Lab Interpretation (test Normal code = 67120-7) [facility]-Nbvnoxnhe0250-05-92 22:43:05 Test Item Value Reference Range Interpretation Comments POC-Potassium (test code 3.4 meq/L 3.6-5.5 L : T ESTED AT [facility] = 1540) [address] [place] [address], 7[address] 30: Anthropologist/Techni kelle ID = [id number] for MARFIL, JOSE ARMANDO Lab Interpretation (test Abnormal code = 01733-4) [facility]-Nvpwyf9695-15-26 22:43:05 Test Item Value Reference Range Interpretation Comments POC-Sodium (test code = 137 meq/L 135-148 : TE STED AT [facility] 1542) [address] [place] [address], 770 30: Anthropologist/Techni kelle ID = [id number] for MARFIL, JOSE ARMANDO Lab Interpretation (test Normal code = 66262-2) [facility]-Ytmxdoozf3058-54-36 22:43:05 Test Item Value Reference Range Interpretation Comments POC-Potassium (test code 3.4 meq/L 3.6-5.5 L : T ESTED AT [facility] = 1540) [address] [place] [address], 770 30: Anthropologist/Techni kelle ID = [id number] for MARFIL, JOSE ARMANDO Lab Interpretation (test Abnormal code = 86701-7) [facility]-Dgweqd9632-73-05 22:43:05 Test Item Value Reference Range Interpretation Comments POC-Sodium (test code = 137 meq/L 135-148 : TE STED AT [facility] 1542) [address] [place] [address], 770 30: Anthropologist/Techni kelle ID = [id number] for MARFIL, JOSE ARMANDO Lab Interpretation (test Normal code = 91909-4) [facility]-Xipatjisn9468-15-07 22:43:05 Test Item Value Reference Range Interpretation Comments POC-Potassium (test code 3.4 meq/L 3.6-5.5 L : T ESTED AT [facility] = 1540) [address] [place] [address], 770 30: Anthropologist/Techni kelle ID = [id number] for MARFIL, JOSE ARMANDO Lab Interpretation (test Abnormal code = 64287-8) [facility]-Oovfrp4546-90-65 22:43:05 Test Item Value Reference Range Interpretation Comments POC-Sodium (test code = 137 meq/L 135-148 : TE STED AT [facility] 1542) [address] [place] [address], 770 30: Anthropologist/Techni kelle ID = [id number] for MARFIL, JOSE ARMANDO Lab Interpretation (test Normal code = 68157-6) [facility]-Bisymchmi1299-52-03 22:43:05 Test Item Value Reference Range Interpretation Comments POC-Potassium (test code 3.4 meq/L 3.6-5.5 L : T ESTED AT [facility] = 1540) [address] [place] [address], 7[address] 30: Anthropologist/Techni kelle ID = [id number] for MARFIL, JOSE ARMANDO Lab Interpretation (test Abnormal code = 84623-6) [facility]-Moqbqk2923-70-02 22:43:05 Test Item Value Reference Range Interpretation Comments POC-Sodium (test code = 137 meq/L 135-148 : TE STED AT [facility] 1542) [address] [place] [address], 770 30: Anthropologist/Techni kelle ID = [id number] for MARFIL, JOSE ARMANDO Lab Interpretation (test Normal code = 76120-2) [facility]-Ewcmlugvb9072-68-62 22:43:05 Test Item Value Reference Range Interpretation Comments POC-Potassium (test code 3.4 meq/L 3.6-5.5 L : T ESTED AT [facility] = 1540) [address] [place] [address], [facility] 30: Anthropologist/Techni kelle ID = [id number] for MARFIL, JOSE ARMANDO Lab Interpretation (test Abnormal code = 88116-2) [facility] 22:[facility]:05 Test Item Value Reference Range Interpretation Comments POC-Sodium (test code = 137 meq/L 135-148 : TE STED AT [facility] 1542) [address] [place] [address], 770 30: Anthropologist/Techni kelle ID = [id number] for MARFIL, JOSE ARMANDO Lab Interpretation (test Normal code = 95241-4) [facility]-Xfialxyip5265-80-87 22:43:05 Test Item Value Reference Range Interpretation Comments POC-Potassium (test code 3.4 meq/L 3.6-5.5 L : T ESTED AT [facility] = 1540) [address] [place] [address], 770 30: Anthropologist/Techni kelle ID = [id number] for MARFIL, JOSE ARMANDO Lab Interpretation (test Abnormal code = 16294-5) [facility]-Ttbgse8285-45-58 22:43:05 Test Item Value Reference Range Interpretation Comments POC-Sodium (test code = 137 meq/L 135-148 : TE STED AT [facility] 1542) [address] [place] [address], 770 30: Anthropologist/Techni kelle ID = [id number] for MARFIL, JOSE ARMANDO Lab Interpretation (test Normal code = 93322-6) [facility]-Yxnqmpasc5407-04-06 22:43:05 Test Item Value Reference Range Interpretation Comments POC-Potassium (test code 3.4 meq/L 3.6-5.5 L : T ESTED AT [facility] = 1540) [address] [place] [address], 7[address] 30: Anthropologist/Techni kelle ID = [id number] for MARFIL, JOSE ARMANDO Lab Interpretation (test Abnormal code = 46702-9) [facility]-Czpmcv8880-77-30 22:43:05 Test Item Value Reference Range Interpretation Comments POC-Sodium (test code = 137 meq/L 135-148 : TE STED AT [facility] 1542) [address] [place] [address], 7[address] 30: Anthropologist/Techni kelle ID = [id number] for MARFIL, JOSE ARMANDO Lab Interpretation (test Normal code = 97515-4) [facility]add[facility]rmv[facility]88-97-46 22:43:05 Test Item Value Reference Range Interpretation Comments POC-Potassium (test code 3.4 meq/L 3.6-5.5 L : T ESTED AT [facility] = 1540) [address] [place] [address], 7[address] 30: Anthropologist/Techni kelle ID = [id number] for MARFIL, JOSE ARMANDO Lab Interpretation (test Abnormal code = 58967-8) [facility]-Irkyey1927-36-53 22:43:05 Test Item Value Reference Range Interpretation Comments POC-Sodium (test code = 137 meq/L 135-148 : TE STED AT [facility] 1542) [address] [place] [address], 770 30: Anthropologist/Techni kelle ID = [id number] for MARFIL, JOSE ARMANDO Lab Interpretation (test Normal code = 13249-1) [facility]-Pvjjckxil0742-03-35 22:43:05 Test Item Value Reference Range Interpretation Comments POC-Potassium (test code 3.4 meq/L 3.6-5.5 L : T ESTED AT [facility] = 1540) [address] [place] [address], 770 30: Anthropologist/Techni kelle ID = [id number] for MARFIL, JOSE ARMANDO Lab Interpretation (test Abnormal code = 09319-4) [facility]-Vxhtse0651-07-61 22:43:05 Test Item Value Reference Range Interpretation Comments POC-Sodium (test code = 137 meq/L 135-148 : TE STED AT [facility] 1542) [address] [place] [address], 770 30: Anthropologist/Techni kelle ID = [id number] for MARFIL, JOSE ARMANDO Lab Interpretation (test Normal code = 81376-3) [facility]-Qmmajmaaq3160-79-84 22:43:05 Test Item Value Reference Range Interpretation Comments POC-Potassium (test code 3.4 meq/L 3.6-5.5 L : T ESTED AT [facility] = 1540) [address] [place] [address], 770 30: Anthropologist/Techni kelle ID = [id number] for MARFIL, JOSE ARMANDO Lab Interpretation (test Abnormal code = 95477-6) [facility]anoOmfoya3566-79-54 22:43:05 Test Item Value Reference Range Interpretation Comments POC-Sodium (test code = 137 meq/L 135-148 : TE STED AT [facility] 1542) [address] [place] [address], 770 30: Anthropologist/Techni kelle ID = [id number] for MARFIL, JOSE ARMANDO Lab Interpretation (test Normal code = 17400-7) [facility]anoZglumpbkk7927-66-48 22:43:05 Test Item Value Reference Range Interpretation Comments POC-Potassium (test code 3.4 meq/L 3.6-5.5 L : T ESTED AT [facility] = 1540) [address] [place] [address], 770 30: Anthropologist/Techni kelle ID = [id number] for MARFIL, JOSE ARMANDO Lab Interpretation (test Abnormal code = 22275-6) [facility]anoEqkvrs0398-16-21 22:43:05 Test Item Value Reference Range Interpretation Comments POC-Sodium (test code = 137 meq/L 135-148 : TE STED AT [facility] 1542) [address] [place] [address], 7[address] 30: Anthropologist/Techni kelle ID = [id number] for MARFIL, JOSE ARMANDO Lab Interpretation (test Normal code = 80880-5) [facility]-OKOXNQ9659-28-93 22:43:05 Test Item Value Reference Range Interpretation Comments POC-SODIUM (BEAKER) 137 meq/L 135-148 : TESTED AT [facility] 6720 (test code = 1542) [facility], [address]: Anthropologist/Techni kelle ID = [id number] for MARF IL, JOSE ARMANDO ZMPP-[id number] 22:43:05 Test Item Value Reference Range Interpretation Comments POC-POTASSIUM 3.4 meq/L 3.6-5.5 L : TESTED AT [facility] 6720 (BEAKER) (test code GISELLA [facility], = 1540) [address]: Anthropologist/Techni kelle ID = [id number] for MARF IL, JOSE ARMANDO POC-Blood gases, [id number] 22:42:59 Test Item Value Reference Range Interpretation Comments Temp. Celsius-POC (test 101.3 code = 1834) FIO2-POC (test code = 28 1835) pH, Venous-POC (test 7.484 7.320-7.420 H : TESTE D AT [facility] code = 1842) [address], [address] PCO2, Venous-POC (test 39.4 See_Comment L If [...] mated message] code = 1844) The system [employer] generated this result transmit levi reference range : 25.0 - 40.0 mm Hg. The reference r alba was not used to interpret this result as normal/abnormal . SO2, Venous-POC (test 87.0 % 40.0-70.0 H code = 1845) HCO3, Venous-POC (test 29.3 meq/L 21.0-29.0 H code = 1846) BE, Venous-POC (test 6.0 meq/L -2.0-3.0 H : code = 1847) Anthropologist/Techni kelle ID = [id number] for MARFIL, JOSE ARMANDO Lab Interpretation Abnormal (test code = 62334-5) [facility], mhskma5510-67-50 22:42:59 Test Item Value Reference Range Interpretation Comments Temp. Celsius-POC (test 101.3 code = 1834) FIO2-POC (test code = 1834) pH, Venous-POC (test 7.484 7.320-7.420 H : TESTE D AT [facility] code = 1842) [address] [place], [address] PCO2, Venous-POC (test 39.4 See_Comment L If [...] mated message] code = 1844) The system [employer] h generated this result transmit levi reference range : 25.0 - 40.0 mm Hg. The reference r alba was not used to interpret this result as normal/abnormal . SO2, Venous-POC (test 87.0 % 40.0-70.0 H code = 1845) HCO3, Venous-POC (test 29.3 meq/L 21.0-29.0 H code = 1846) BE, Venous-POC (test 6.0 meq/L -2.0-3.0 H : code = 1847) Anthropologist/Techni kelle ID = [id number] for JOSE ARMANDO CELIS Lab Interpretation Abnormal (test code = 82136-7) [facility]-Blood gases, [id number] 22:42:59 Test Item Value Reference Range Interpretation Comments Temp. Celsius-POC (test 101.3 code = 1834) FIO2-POC (test code = 5) pH, Venous-POC (test 7.484 7.320-7.420 H : TESTE D AT [facility] code = 1842) [address] [place], [address] PCO2, Venous-POC (test 39.4 See_Comment L If [...] mated message] code = 1844) The system [employer] generated this result transmit levi reference range : 25.0 - 40.0 mm Hg. The reference r alba was not used to interpret this result as normal/abnormal . SO2, Venous-POC (test 87.0 % 40.0-70.0 H code = 1845) HCO3, Venous-POC (test 29.3 meq/L 21.0-29.0 H code = 1846) BE, Venous-POC (test 6.0 meq/L -2.0-3.0 H : code = 1847) Anthropologist/Techni kelle ID = [id number] for HERBERT CELISE Lab Interpretation Abnormal (test code = 85112-4) [facility]-Blood gases, [id number] 22:42:59 Test Item Value Reference Range Interpretation Comments Temp. Celsius-POC (test 101.3 code = 1834) FIO2-POC (test code = 28 1835) pH, Venous-POC (test 7.484 7.320-7.420 H : TESTE D AT [facility] code = 1842) [address] [place] [place], [address] PCO2, Venous-POC (test 39.4 See_Comment L If [...] mated message] code = 1844) The system [employer] generated this result transmit levi reference range : 25.0 - 40.0 mm Hg. The reference r alba was not used to interpret this result as normal/abnormal . SO2, Venous-POC (test 87.0 % 40.0-70.0 H code = 1845) HCO3, Venous-POC (test 29.3 meq/L 21.0-29.0 H code = 1846) BE, Venous-POC (test 6.0 meq/L -2.0-3.0 H : code = 1847) Anthropologist/Techni kelle ID = [id number] for MARFIL, JOSE ARMANDO Lab Interpretation Abnormal (test code = 38773-2) [facility]-Blood gases, [id number] 22:42:59 Test Item Value Reference Range Interpretation Comments Temp. Celsius-POC (test 101.3 code = 1834) FIO2-POC (test code = 28 1834) pH, Venous-POC (test 7.484 7.320-7.420 H : TESTE D AT [facility] code = 1842) [address] [place], [address] PCO2, Venous-POC (test 39.4 See_Comment L If [...] mated message] code = 1844) The system [employer] generated this result transmit levi reference range : 25.0 - 40.0 mm Hg. The reference r alba was not used to interpret this result as normal/abnormal . SO2, Venous-POC (test 87.0 % 40.0-70.0 H code = 1845) HCO3, Venous-POC (test 29.3 meq/L 21.0-29.0 H code = 1846) BE, Venous-POC (test 6.0 meq/L -2.0-3.0 H : code = 1847) Anthropologist/Techni kelle ID = [id number] for MARFIL, JOSE ARMANDO Lab Interpretation Abnormal (test code = 25208-7) [facility]-Blood gases, [id number] 22:42:59 Test Item Value Reference Range Interpretation Comments Temp. Celsius-POC (test 101.3 code = 1834) FIO2-POC (test code = 28 5) pH, Venous-POC (test 7.484 7.320-7.420 H : TESTE D AT [facility] code = 1842) [address] [place], [address] PCO2, Venous-POC (test 39.4 See_Comment L If [...] mated message] code = 1844) The system [employer] generated this result transmit levi reference range : 25.0 - 40.0 mm Hg. The reference r alba was not used to interpret this result as normal/abnormal . SO2, Venous-POC (test 87.0 % 40.0-70.0 H code = 1845) HCO3, Venous-POC (test 29.3 meq/L 21.0-29.0 H code = 1846) BE, Venous-POC (test 6.0 meq/L -2.0-3.0 H : code = 1847) Anthropologist/Techni kelle ID = [id number] for VIMAL JOSE ARMANDO Lab Interpretation Abnormal (test code = 31206-6) [facility]-Blood gases, [id number] 22:42:59 Test Item Value Reference Range Interpretation Comments Temp. Celsius-POC (test 101.3 code = 1834) FIO2-POC (test code = 28 1835) pH, Venous-POC (test 7.484 7.320-7.420 H : TESTE D AT [facility] code = 1842) [address] [place], [address] PCO2, Venous-POC (test 39.4 See_Comment L If [...] mated message] code = 1844) The system [employer] generated this result transmit levi reference range : 25.0 - 40.0 mm Hg. The reference r alba was not used to interpret this result as normal/abnormal . SO2, Venous-POC (test 87.0 % 40.0-70.0 H code = 1845) HCO3, Venous-POC (test 29.3 meq/L 21.0-29.0 H code = 1846) BE, Venous-POC (test 6.0 meq/L -2.0-3.0 H : code = 1847) Anthropologist/Techni kelle ID = [id number] for MARFIL, JOSE ARMANDO Lab Interpretation Abnormal (test code = 11107-3) [facility]-Blood gases, [id number] 22:42:59 Test Item Value Reference Range Interpretation Comments Temp. Celsius-POC (test 101.3 code = 1834) FIO2-POC (test code = 28 183) pH, Venous-POC (test 7.484 7.320-7.420 H : TESTE D AT [facility] code = 1842) [address] [facility], [address] PCO2, Venous-POC (test 39.4 See_Comment L If [...] mated message] code = 1844) The system [employer] generated this result transmit levi reference range : 25.0 - 40.0 mm Hg. The reference r alba was not used to interpret this result as normal/abnormal . SO2, Venous-POC (test 87.0 % 40.0-70.0 H code = 1845) HCO3, Venous-POC (test 29.3 meq/L 21.0-29.0 H code = 1846) BE, Venous-POC (test 6.0 meq/L -2.0-3.0 H : code = 1847) Anthropologist/Techni kelle ID = [id number] for MARFIL, JOSE ARMANDO Lab Interpretation Abnormal (test code = 32044-0) [facility]-Blood gases, [id number] 22:42:59 Test Item Value Reference Range Interpretation Comments Temp. Celsius-POC (test 101.3 code = 1834) FIO2-POC (test code = 28 5) pH, Venous-POC (test 7.484 7.320-7.420 H : TESTE D AT [facility] code = 1842) [address] [place], [address] PCO2, Venous-POC (test 39.4 See_Comment L If [...] mated message] code = 1844) The system [employer] generated this result transmit levi reference range : 25.0 - 40.0 mm Hg. The reference r alba was not used to interpret this result as normal/abnormal . SO2, Venous-POC (test 87.0 % 40.0-70.0 H code = 1845) HCO3, Venous-POC (test 29.3 meq/L 21.0-29.0 H code = 1846) BE, Venous-POC (test 6.0 meq/L -2.0-3.0 H : code = 1847) Anthropologist/Techni kelle ID = [id number] for VIMALJOSE ARMANDO Lab Interpretation Abnormal (test code = 45772-1) [facility]-Blood gases, [id number] 22:42:59 Test Item Value Reference Range Interpretation Comments Temp. Celsius-POC (test 101.3 code = 183) FIO2-POC (test code = 1834) pH, Venous-POC (test 7.484 7.320-7.420 H : TESTE D AT [facility] code = 1842) [address] [place], [address] PCO2, Venous-POC (test 39.4 See_Comment L If [...] mated message] code = 1844) The system [employer] generated this result transmit levi reference range : 25.0 - 40.0 mm Hg. The reference r alba was not used to interpret this result as normal/abnormal . SO2, Venous-POC (test 87.0 % 40.0-70.0 H code = 1845) HCO3, Venous-POC (test 29.3 meq/L 21.0-29.0 H code = 1846) BE, Venous-POC (test 6.0 meq/L -2.0-3.0 H : code = 1847) Anthropologist/Techni kelle ID = [id number] for MARFIL, JOSE ARMANDO Lab Interpretation Abnormal (test code = 33302-3) [facility]-Blood gases, [id number] 22:42:59 Test Item Value Reference Range Interpretation Comments Temp. Celsius-POC (test 101.3 code = 1834) FIO2-POC (test code = 28 1835) pH, Venous-POC (test 7.484 7.320-7.420 H : TESTE D AT [facility] code = 1842) [address] [facility], [address] PCO2, Venous-POC (test 39.4 See_Comment L If [...] mated message] code = 1844) The system [employer] generated this result transmit levi reference range : 25.0 - 40.0 mm Hg. The reference r alba was not used to interpret this result as normal/abnormal . SO2, Venous-POC (test 87.0 % 40.0-70.0 H code = 1845) HCO3, Venous-POC (test 29.3 meq/L 21.0-29.0 H code = 1846) BE, Venous-POC (test 6.0 meq/L -2.0-3.0 H : code = 1847) Anthropologist/Techni kelle ID = [id number] for MARFIL, JOSE ARMANDO Lab Interpretation Abnormal (test code = 33892-9) [facility]-Blood gases, [id number] 22:42:59 Test Item Value Reference Range Interpretation Comments Temp. Celsius-POC (test 101.3 code = 1834) FIO2-POC (test code = 28 1835) pH, Venous-POC (test 7.484 7.320-7.420 H : TESTE D AT [facility] code = 1842) [address] [facility], [address] PCO2, Venous-POC (test 39.4 See_Comment L If [...] mated message] code = 1844) The system [employer] generated this result transmit levi reference range : 25.0 - 40.0 mm Hg. The reference r alba was not used to interpret this result as normal/abnormal . SO2, Venous-POC (test 87.0 % 40.0-70.0 H code = 1845) HCO3, Venous-POC (test 29.3 meq/L 21.0-29.0 H code = 1846) BE, Venous-POC (test 6.0 meq/L -2.0-3.0 H : code = 1847) Anthropologist/Techni kelle ID = [id number] for JOSE ARMANDO CELIS Lab Interpretation Abnormal (test code = 31365-7) [facility]-BLOOD GASES, [id number] 22:42:59 Test Item Value Reference Range Interpretation Comments TEMP, CELSIUS-POC 101.3 (BEAKER) (test code = 1834) FIO2-POC (BEAKER) 28 (test code = 1835) PH, VENOUS-POC 7.484 7.320-7.420 H : TESTED AT [facility] 6720 (BEAKER) (test code GISELLA [facility], = 1842) [address] PCO2, VENOUS-POC 39.4 mm Hg 41.0-51.0 L [...] BASE EXCESS, 6.0 meq/L -2.0-3.0 H : Anthropologist/Tech nician ID VENOUS-POC (BEAKER) = [id number] for MARFIL, (test code = 1847) JOSE ARMANDO LACTIC ACID, [id number] 22:23:56 Test Item Value Reference Range Interpretation Comments LACTATE BLOOD VENOUS 0.92 mmol/L 0.50-2.20 Specime n moderately (2) (BEAKER) (test hemolyzed code = 2872) Anthropologist ID - BSPOCT-GLUCOSE [id number] 21:35:23 Test Item Value Reference Range Interpretation Comments POC-GLUCOSE METER 125 mg/dL 70-110 H : TESTED A T [facility] 6720 (BEAKER) (test code = [facility] [employer] [facility], 1538) [address]: Anthropologist/Techni kelle ID = [id number] for UG ORSHANELLE, GHADA POCT-GLUCOSE [id number] 17:05:43 Test Item Value Reference Range Interpretation Comments POC-GLUCOSE METER 224 mg/dL 70-110 H : TESTED A T [facility] 6720 (BEAKER) (test code = [facility] [employer] [facility], 1538) [address]: Anthropologist/Techni kelle ID = [id number] for Re yes, Maranda POCT-GLUCOSE [id number] 16:33:44 Test Item Value Reference Range Interpretation Comments POC-GLUCOSE METER 108 mg/dL 70-110 : TESTED A T [facility] 6720 (BEAKER) (test code = [facility] [employer] [facility], 1538) [address]: Anthropologist/Techni kelle ID = [id number] for Ag treyjeanette Herminia POCT-GLUCOSE [id number] 07:38:21 Test Item Value Reference Range Interpretation Comments POC-GLUCOSE METER 185 mg/dL 70-110 H : TESTED A T [facility] 6720 (BEAKER) (test code = YUDY Vaca [facility], 1538) [address]: Anthropologist/Techni kelle ID = [id number] for Re yes, Maranda BASIC METABOLIC [id number] 07:20:13 Test Item Value Reference Range Interpretation [...] S NOT APPLICABLE FOR DIALYSIS PATIEN TS. Anthropologist ID - HIEN [id number] 06:54:10 Test Item Value Reference Range Interpretation Comments PHOSPHORUS (BEAKER) (test code = 4.6 mg/dL 2.3-4.7 604) Anthropologist ID - HIEN [id number] 06:54:09 Test Item Value Reference Range Interpretation Comments MAGNESIUM (BEAKER) (test code = 2.2 mg/dL 1.6-2.6 627) Anthropologist ID - HIEN [facility] W/PLT COUNT & AUTO [id number] 04:53:46 Test Item Value Reference Range Interpretation [...] PERCENT (BEAKER) (test code = 2801) POCT-GLUCOSE [id number] 21:34:14 Test Item Value Reference Range Interpretation Comments POC-GLUCOSE METER 260 mg/dL 70-110 H : TESTED A T [facility] 6720 (BEAKER) (test code = [place], 1538) [address]: Anthropologist/Techni kelle ID = [id number] for GHADA BECK POCT-GLUCOSE [id number] 16:27:30 Test Item Value Reference Range Interpretation Comments POC-GLUCOSE METER 170 mg/dL 70-110 H : TESTED A T [facility] 6720 (AKASH) (test code = [place], 1538) [address]: Anthropologist/Techni kelle ID = [id number] for Soledad Rivera 2D Echo W/Doppler(CW/PW/Color)2021-06-09 16:08:58Ejection [facility]CW/PW/Color)2021-06-09 16:08:58Ejection [facility]ractionSLEH [facility] W/Doppler(CW/PW/Color) 2021-06-09 16:08:58Ejection [facility]ractionSLEH [facility]CHO [facility] W/Doppler(CW/PW/Color)2021-06-09 16:08:58Ejection FractionSLEH [facility]CHO [facility] W/Doppler(CW/PW/Color)2021-06-09 16:08:58Ejection FractionSLEH ECHO [facility] W/Doppler(CW/PW/Color) 2021-06-09 16:08:58Ejection [facility]SLEH [facility]CHO [facility] W/Doppler(CW/PW/Color)2021-06-09 16:08:58Ejection [facility](CW/PW/Color)2021-06-09 16:08:58Ejection [facility]ractionSLEH [facility]CHO [facility] W/Doppler(CW/PW/Color) 2021-06-09 16:08:58Ejection [facility]ractionSLEH [facility]CHO [facility] W/Doppler(CW/PW/Color)2021-06-09 16:08:58Ejection FractionSLEH ECHO HEARTLAB M[facility]IAON [facility] W/Doppler(CW/PW/Color)2021-06-09 16:08:58Ejection FractionSLEH ECHO HEARTLAB SHANDRA [facility] W/Doppler(CW/PW/Color) 2021-06-09 16:08:58Ejection FractionSLEH ECHO [facility]ARTLAB [id number] 16:06:54Ejection FractionSLEH ECHO [facility]ARTLAB [facility] 2021[facility]06-09 16:06:54Ejection FractionSLEH ECHO [facility]ART[facility] [id number] 16:06:54Ejection FractionSLEH ECHO HEARTLAB [facility] 16:06:54Ejection FractionSLEH ECHO HEARTLAB SHANDRA [facility] CenterTrans[facility] [id number] 16:06:54Ejection FractionSLEH ECHO HEARTLAB SHANDRA [facility] 2021-06-09 16:06:54Ejection FractionSLEH ECHO HEARTLAB [facility]RELLON [facility] [id number] 16:06:54Ejection FractionSLEH ECHO HEARTLAB [facility]LLON [facility] 2021-06-09 16:06:54Ejection FractionSLEH ECHO HEARTLAB MKMERIESSON [facility] CenterTrans[facility] [id number] 16:06:54Ejection FractionSLEH ECHO HEARTLAB PIEROESSON [facility] 2021-06-09 16:06:54Ejection FractionSLEH ECHO HEARTLAB MKMERIESSON [facility] [id number] 16:06:54Ejection FractionSLEH ECHO HEARTLAB MKMERIESSON [facility] 2021-06-09 16:06:54Ejection FractionSLEH ECHO HEARTLAB DERRELLON [facility] [id number] 06:23:12 Test Item Value Reference Range Interpretation Comments POC-GLUCOSE METER 250 mg/dL 70-110 H : TESTED A T BSC 6720 (BEAKER) (test code = [place], 1538) [address]: Anthropologist/Techni kelle ID = [id number] for Tavia Bruce BASIC METABOLIC [id number] 04:37:07 Test Item Value Reference Range Interpretation [...] S NOT APPLICABLE FOR DIALYSIS PATIEN TS. Anthropologist ID - RAKAN [id number] 04:30:49 Test Item Value Reference Range Interpretation Comments PHOSPHORUS (BEAKER) (test code = 3.8 mg/dL 2.3-4.7 604) Anthropologist ID - RAKAN [id number] 04:30:48 Test Item Value Reference Range Interpretation Comments MAGNESIUM (BEAKER) (test code = 2.0 mg/dL 1.6-2.6 627) Anthropologist ID Bassam [place] WCBC W/PLT COUNT & AUTO [id number] 03:53:11 Test Item Value Reference Range Interpretation [...] (BEAKER) (test code = 2801) Hepatitis panel, [id number] 23:49:54 Test Item Value Reference Range Interpretation Comments Hep A IgM (test code = Nonreactive Nonreactive 44297-5) Hep B C IgM (test code = Nonreactive Nonreactive 87169-3) Hepatitis C Ab (test code = Nonreactive Nonreactive 18690-6) Hepatitis B surface antigen Nonreactive Nonreactive (test code = 5195-3) BRANDI (test code = BRANDI) Anthropologist ID - DB Lab Interpretation (test Normal code = 98580-6) [facility], [id number] 23:49:54 Test Item Value Reference Range Interpretation Comments Hep A IgM (test code = Nonreactive Nonreactive 75593-5) Hep B C IgM (test code = Nonreactive Nonreactive 02070-5) Hepatitis C Ab (test code = Nonreactive Nonreactive 94986-7) Hepatitis B surface antigen Nonreactive Nonreactive (test code = 5195-3) BRANDI (test code = BRANDI) Anthropologist ID - DB Lab Interpretation (test Normal code = 23466-4) [facility], [id number] 23:49:54 Test Item Value Reference Range Interpretation Comments Hep A IgM (test code = Nonreactive Nonreactive 00002-5) Hep B C IgM (test code = Nonreactive Nonreactive 08415-8) Hepatitis C Ab (test code = Nonreactive Nonreactive 94638-3) Hepatitis B surface antigen Nonreactive Nonreactive (test code = 5195-3) BRANDI (test code = BRANDI) Anthropologist ID - DB Lab Interpretation (test Normal code = 44422-1) [facility], [id number] 23:49:54 Test Item Value Reference Range Interpretation Comments Hep A IgM (test code = Nonreactive Nonreactive 52813-5) Hep B C IgM (test code = Nonreactive Nonreactive 84071-8) Hepatitis C Ab (test code = Nonreactive Nonreactive 14509-3) Hepatitis B surface antigen Nonreactive Nonreactive (test code = 5195-3) BRANDI (test code = BRANDI) Anthropologist ID - DB Lab Interpretation (test Normal code = 41774-3) [facility], [id number] 23:49:54 Test Item Value Reference Range Interpretation Comments Hep A IgM (test code = Nonreactive Nonreactive 01475-6) Hep B C IgM (test code = Nonreactive Nonreactive 69741-1) Hepatitis C Ab (test code = Nonreactive Nonreactive 70923-5) Hepatitis B surface antigen Nonreactive Nonreactive (test code = 5195-3) BRANDI (test code = BRANDI) Anthropologist ID - DB Lab Interpretation (test Normal code = 76412-6) [facility] panel, [id number] 23:49:54 Test Item Value Reference Range Interpretation Comments Hep A IgM (test code = Nonreactive Nonreactive 14737-1) Hep B C IgM (test code = Nonreactive Nonreactive 40138-0) Hepatitis C Ab (test code = Nonreactive Nonreactive 77035-2) Hepatitis B surface antigen Nonreactive Nonreactive (test code = 5195-3) BRANDI (test code = BRANDI) Anthropologist ID - DB Lab Interpretation (test Normal code = 74330-7) [facility] panel, [id number] 23:49:54 Test Item Value Reference Range Interpretation Comments Hep A IgM (test code = Nonreactive Nonreactive 08161-4) Hep B C IgM (test code = Nonreactive Nonreactive 67390-8) Hepatitis C Ab (test code = Nonreactive Nonreactive 14118-1) Hepatitis B surface antigen Nonreactive Nonreactive (test code = 5195-3) BRANDI (test code = BRANDI) Anthropologist ID - DB Lab Interpretation (test Normal code = 21862-5) [facility] panel, [id number] 23:49:54 Test Item Value Reference Range Interpretation Comments Hep A IgM (test code = Nonreactive Nonreactive 62083-8) Hep B C IgM (test code = Nonreactive Nonreactive 02621-8) Hepatitis C Ab (test code = Nonreactive Nonreactive 95191-1) Hepatitis B surface antigen Nonreactive Nonreactive (test code = 5195-3) BRANDI (test code = BRANDI) Anthropologist ID - DB Lab Interpretation (test Normal code = 72022-1) [facility] panel, [id number] 23:49:54 Test Item Value Reference Range Interpretation Comments Hep A IgM (test code = Nonreactive Nonreactive 66239-8) Hep B C IgM (test code = Nonreactive Nonreactive 77524-7) Hepatitis C Ab (test code = Nonreactive Nonreactive 97307-1) Hepatitis B surface antigen Nonreactive Nonreactive (test code = 5195-3) BRANDI (test code = BRANDI) Anthropologist ID - DB Lab Interpretation (test Normal code = 76070-6) [facility] panel, [id number] 23:49:54 Test Item Value Reference Range Interpretation Comments Hep A IgM (test code = Nonreactive Nonreactive 14334-9) Hep B C IgM (test code = Nonreactive Nonreactive 09946-8) Hepatitis C Ab (test code = Nonreactive Nonreactive 67920-9) Hepatitis B surface antigen Nonreactive Nonreactive (test code = 5195-3) BRANDI (test code = BRANDI) Anthropologist ID - DB Lab Interpretation (test Normal code = 97308-5) [facility] panel, [id number] 23:49:54 Test Item Value Reference Range Interpretation Comments Hep A IgM (test code = Nonreactive Nonreactive 98532-0) Hep B C IgM (test code = Nonreactive Nonreactive 12849-4) Hepatitis C Ab (test code = Nonreactive Nonreactive 18864-6) Hepatitis B surface antigen Nonreactive Nonreactive (test code = 5195-3) BRANDI (test code = BRANDI) Anthropologist ID - DB Lab Interpretation (test Normal code = 20383-3) [facility] panel, [id number] 23:49:54 Test Item Value Reference Range Interpretation Comments Hep A IgM (test code = Nonreactive Nonreactive 65752-0) Hep B C IgM (test code = Nonreactive Nonreactive 34441-7) Hepatitis C Ab (test code = Nonreactive Nonreactive 08304-6) Hepatitis B surface antigen Nonreactive Nonreactive (test code = 5195-3) BRANDI (test code = BRANDI) Anthropologist ID - DB Lab Interpretation (test Normal code = 36347-2) [facility] PANEL, [id number] 23:49:54 Test Item Value Reference Range Interpretation Comments HEPATITIS A IGM ANTIBODY (BEAKER) Nonreactive Nonreactive (test code = 498) HEPATITIS B CORE IGM ANTIBODY Nonreactive Nonreactive (BEAKER) (test code = 645) HEPATITIS C ANTIBODY (BEAKER) Nonreactive Nonreactive (test code = 367) HEPATITIS B SURFACE ANTIGEN (2) Nonreactive Nonreactive (BEAKER) (test code = 2585) Anthropologist ID - DBPOCT-GLUCOSE [id number] 21:22:04 Test Item Value Reference Range Interpretation Comments POC-GLUCOSE METER 193 mg/dL 70-110 H : TESTED A T BSC 6720 (BEAKER) (test code = [place], 1538) [address]: Anthropologist/Techni kelle ID = [id number] for Tavia Bruce Hepatitis B surface [id number] 13:29:36 Test Item Value Reference Range Interpretation Comments Hepatitis B surface Nonreactive Nonreactive antigen (test code = 5195-3) BRANDI (test code = BRANDI) Specimen is considered negative for HBsAg. Lab Interpretation (test Normal code = 38653-1) [facility] [id number] 13:29:36 Test Item Value Reference Range Interpretation Comments Hepatitis B surface Nonreactive Nonreactive antigen (test code = 5195-3) BRANDI (test code = BRANDI) Specimen is considered negative for HBsAg. Lab Interpretation (test Normal code = 09062-4) [facility] surface [id number] 13:29:36 Test Item Value Reference Range Interpretation Comments Hepatitis B surface Nonreactive Nonreactive antigen (test code = 5195-3) BRANDI (test code = BRANDI) Specimen is considered negative for HBsAg. Lab Interpretation (test Normal code = 48981-7) [facility] surface [id number] 13:29:36 Test Item Value Reference Range Interpretation Comments Hepatitis B surface Nonreactive Nonreactive antigen (test code = 5195-3) BRANDI (test code = BRANDI) Specimen is considered negative for HBsAg. Lab Interpretation (test Normal code = 53875-4) [facility] surface [id number] 13:29:36 Test Item Value Reference Range Interpretation Comments Hepatitis B surface Nonreactive Nonreactive antigen (test code = 5195-3) BRANDI (test code = BRANDI) Specimen is considered negative for HBsAg. Lab Interpretation (test Normal code = 98748-6) [facility] surface [id number] 13:29:36 Test Item Value Reference Range Interpretation Comments Hepatitis B surface Nonreactive Nonreactive antigen (test code = 5195-3) BRANDI (test code = BRANDI) Specimen is considered negative for HBsAg. Lab Interpretation (test Normal code = 83791-5) [facility] surface [id number] 13:29:36 Test Item Value Reference Range Interpretation Comments Hepatitis B surface Nonreactive Nonreactive antigen (test code = 5195-3) BRANDI (test code = BRANDI) Specimen is considered negative for HBsAg. Lab Interpretation (test Normal code = 46456-7) [facility] surface [id number] 13:29:36 Test Item Value Reference Range Interpretation Comments Hepatitis B surface Nonreactive Nonreactive antigen (test code = 5195-3) BRANDI (test code = BRANDI) Specimen is considered negative for HBsAg. Lab Interpretation (test Normal code = 69660-0) [facility] B surface [id number] 13:29:36 Test Item Value Reference Range Interpretation Comments Hepatitis B surface Nonreactive Nonreactive antigen (test code = 5195-3) BRANDI (test code = BRANDI) Specimen is considered negative for HBsAg. Lab Interpretation (test Normal code = 65107-4) [facility] [id number] 13:29:36 Test Item Value Reference Range Interpretation Comments Hepatitis B surface Nonreactive Nonreactive antigen (test code = 5195-3) BRANDI (test code = BRANDI) Specimen is considered negative for HBsAg. Lab Interpretation (test Normal code = 40609-5) [facility] surface [id number] 13:29:36 Test Item Value Reference Range Interpretation Comments Hepatitis B surface Nonreactive Nonreactive antigen (test code = 5195-3) BRANDI (test code = BRANDI) Specimen is considered negative for HBsAg. Lab Interpretation (test Normal code = 98127-4) [facility] [id number] 13:29:36 Test Item Value Reference Range Interpretation Comments Hepatitis B surface Nonreactive Nonreactive antigen (test code = 5195-3) BRANDI (test code = BRANDI) Specimen is considered negative for HBsAg. Lab Interpretation (test Normal code = 21504-8) [facility] [id number] 13:29:36 Test Item Value Reference Range Interpretation Comments HEPATITIS B SURFACE ANTIGEN (2) Nonreactive Nonreactive (BEAKER) (test code = 2585) Specimen is considered negative for HBsAg.U/S, ABDOMINAL, [id number] 13:10:00Abdomen limited area? Add comment if clarification is needed.- >LiverReason for exam:->hepatic nodularity reported [facility] : 1955 Sex: FFINAL [...] Webb MDReport Verified Date/Time: 06/08/2021 13:10:45 SARS-COV2/RT-PCR ([facility])2021-06-08 12:35:29 Test Item Value Reference Range Interpretation Comments SARS-COV2/RT-PCR (test Negative Not Detected, Negative, code = 0473588) See external report for linked test SARS-COV-2 PERFORMING LAB [facility] (test code = 7961179) Negative result for this test determines that [...] of the Act.Fact Sheet for Healthcare Prov iders:https://www.[employer]/sites/default/files/product/documents/Fact_Sheet_HC _Qoetrsjfa_Tahq_OMSX-KfT-4.pdfFact Sheet for Healthcare Patients:https://www.[employer]/sites/default/files/product/docume nts/Uhno_Fukkh_Tqebksyx_Vlck_RUFQ-ZcQ-6.pdfPerforming Laboratory:[facility] [place], [place] [address]Asfxexj D, 25-Hydroxy 2021-06-08 11:10:06 Test Item Value Reference Range Interpretation Comments Vitamin D 25-Hydroxy 16.7 ng/mL 6.6-49.9 (test code = 2764) BRANDI (test code = BRANDI) Effective 01/12/2017: Reference Range ChangeNew: 6.6-49.9 ng/mL Previous: 13.0-47.8 ng/mL Recommended Vitamin D Target Range: 30.0-40.0 ng/mLOperator ID - DB Lab Interpretation (test Normal code = 79181-6) [facility], 35-Odcabsm3715-25-07 11:10:06 Test Item Value Reference Range Interpretation Comments Vitamin D 25-Hydroxy 16.7 ng/mL 6.6-49.9 (test code = 2764) BRANDI (test code = BRANDI) Effective 01/12/2017: Reference Range ChangeNew: 6.6-49.9 ng/mL Previous: 13.0-47.8 ng/mL Recommended Vitamin D Target Range: 30.0-40.0 ng/mLOperator ID - DB Lab Interpretation (test Normal code = 33420-5) [facility], 11-Rauysox5191-18-07 11:10:06 Test Item Value Reference Range Interpretation Comments Vitamin D 25-Hydroxy 16.7 ng/mL 6.6-49.9 (test code = 2764) BRANDI (test code = BRANDI) Effective 01/12/2017: Reference Range ChangeNew: 6.6-49.9 ng/mL Previous: 13.0-47.8 ng/mL Recommended Vitamin D Target Range: 30.0-40.0 ng/mLOperator ID - DB Lab Interpretation (test Normal code = 01068-1) [facility], 15-Xricoin2466-11-07 11:10:06 Test Item Value Reference Range Interpretation Comments Vitamin D 25-Hydroxy 16.7 ng/mL 6.6-49.9 (test code = 2764) BRANDI (test code = BRANDI) Effective 01/12/2017: Reference Range ChangeNew: 6.6-49.9 ng/mL Previous: 13.0-47.8 ng/mL Recommended Vitamin D Target Range: 30.0-40.0 ng/mLOperator ID - DB Lab Interpretation (test Normal code = 93631-2) [facility], 11-Kxzlztk2195-06-07 11:10:06 Test Item Value Reference Range Interpretation Comments Vitamin D 25-Hydroxy 16.7 ng/mL 6.6-49.9 (test code = 2764) BRANDI (test code = BRANDI) Effective 01/12/2017: Reference Range ChangeNew: 6.6-49.9 ng/mL Previous: 13.0-47.8 ng/mL Recommended Vitamin D Target Range: 30.0-40.0 ng/mLOperator ID - DB Lab Interpretation (test Normal code = 69764-7) [facility], 27-Qhzfzbn7159-66-07 11:10:06 Test Item Value Reference Range Interpretation Comments Vitamin D 25-Hydroxy 16.7 ng/mL 6.6-49.9 (test code = 2764) BRANDI (test code = BRANDI) Effective 01/12/2017: Reference Range ChangeNew: 6.6-49.9 ng/mL Previous: 13.0-47.8 ng/mL Recommended Vitamin D Target Range: 30.0-40.0 ng/mLOperator ID - DB Lab Interpretation (test Normal code = 82592-9) [facility], 97-Lnxhire0219-40-07 11:10:06 Test Item Value Reference Range Interpretation Comments Vitamin D 25-Hydroxy 16.7 ng/mL 6.6-49.9 (test code = 2764) BRANDI (test code = BRANDI) Effective 01/12/2017: Reference Range ChangeNew: 6.6-49.9 ng/mL Previous: 13.0-47.8 ng/mL Recommended Vitamin D Target Range: 30.0-40.0 ng/mLOperator ID - DB Lab Interpretation (test Normal code = 59063-2) [facility], 62-Vbbbnnu2062-83-07 11:10:06 Test Item Value Reference Range Interpretation Comments Vitamin D 25-Hydroxy 16.7 ng/mL 6.6-49.9 (test code = 2764) BRANDI (test code = BRANDI) Effective 01/12/2017: Reference Range ChangeNew: 6.6-49.9 ng/mL Previous: 13.0-47.8 ng/mL Recommended Vitamin D Target Range: 30.0-40.0 ng/mLOperator ID - DB Lab Interpretation (test Normal code = 09064-7) [facility], 53-Zertvur2652-30-07 11:10:06 Test Item Value Reference Range Interpretation Comments Vitamin D 25-Hydroxy 16.7 ng/mL 6.6-49.9 (test code = 2764) BRANDI (test code = BRANDI) Effective 01/12/2017: Reference Range ChangeNew: 6.6-49.9 ng/mL Previous: 13.0-47.8 ng/mL Recommended Vitamin D Target Range: 30.0-40.0 ng/mLOperator ID - DB Lab Interpretation (test Normal code = 33734-9) [facility], 92-Akolhrb4295-98-07 11:10:06 Test Item Value Reference Range Interpretation Comments Vitamin D 25-Hydroxy 16.7 ng/mL 6.6-49.9 (test code = 2764) BRANDI (test code = BRANDI) Effective 01/12/2017: Reference Range ChangeNew: 6.6-49.9 ng/mL Previous: 13.0-47.8 ng/mL Recommended Vitamin D Target Range: 30.0-40.0 ng/mLOperator ID - DB Lab Interpretation (test Normal code = 00971-0) [facility], 95-Eksbuor9740-52-07 11:10:06 Test Item Value Reference Range Interpretation Comments Vitamin D 25-Hydroxy 16.7 ng/mL 6.6-49.9 (test code = 2764) BRANDI (test code = BRANDI) Effective 01/12/2017: Reference Range ChangeNew: 6.6-49.9 ng/mL Previous: 13.0-47.8 ng/mL Recommended Vitamin D Target Range: 30.0-40.0 ng/mLOperator ID - DB Lab Interpretation (test Normal code = 62263-8) [facility], 18-Ccxuupm9732-05-07 11:10:06 Test Item Value Reference Range Interpretation Comments Vitamin D 25-Hydroxy 16.7 ng/mL 6.6-49.9 (test code = 2764) BRANDI (test code = BRANDI) Effective 01/12/2017: Reference Range ChangeNew: 6.6-49.9 ng/mL Previous: 13.0-47.8 ng/mL Recommended Vitamin D Target Range: 30.0-40.0 ng/mLOperator ID - DB Lab Interpretation (test Normal code = 63229-1) [facility], 41-[id number] 11:10:06 Test Item Value Reference Range Interpretation Comments VITAMIN D 25-OH (BEAKER) (test 16.7 ng/mL 6.6-49.9 code = 2764) Effective 01/12/2017: Reference Range ChangeNew: 6.6-49.9 ng/mL Previous: 13.0- 47.8 ng/mLRecommendedVitamin D Target Range: 30.0-40.0 ng/mLOperator ID - DBPTH, [id number] 11:05:08 Test Item Value Reference Range Interpretation Comments PTH (test code = 2731-8) 449.7 pg/mL 8.5-72.5 H BRANDI (test code = BRANDI) Anthropologist ID - ADMIN Lab Interpretation (test Abnormal code = 34432-5) [facility], [id number] 11:05:08 Test Item Value Reference Range Interpretation Comments PTH (test code = 2731-8) 449.7 pg/mL 8.5-72.5 H BRANDI (test code = BRANDI) Anthropologist ID - ADMIN Lab Interpretation (test Abnormal code = 48478-3) [facility], [id number] 11:05:08 Test Item Value Reference Range Interpretation Comments PTH (test code = 2731-8) 449.7 pg/mL 8.5-72.5 H BRANDI (test code = BRANDI) Anthropologist ID - ADMIN Lab Interpretation (test Abnormal code = 34521-7) [facility], [id number] 11:05:08 Test Item Value Reference Range Interpretation Comments PTH (test code = 2731-8) 449.7 pg/mL 8.5-72.5 H BRANDI (test code = BRANDI) Anthropologist ID - ADMIN Lab Interpretation (test Abnormal code = 57391-4) [facility], [id number] 11:05:08 Test Item Value Reference Range Interpretation Comments PTH (test code = 2731-8) 449.7 pg/mL 8.5-72.5 H BRANDI (test code = BRANDI) Anthropologist ID - ADMIN Lab Interpretation (test Abnormal code = 12820-9) [facility], [id number] 11:05:08 Test Item Value Reference Range Interpretation Comments PTH (test code = 2731-8) 449.7 pg/mL 8.5-72.5 H BRANDI (test code = BRANDI) Anthropologist ID - ADMIN Lab Interpretation (test Abnormal code = 56404-1) [facility], [id number] 11:05:08 Test Item Value Reference Range Interpretation Comments PTH (test code = 2731-8) 449.7 pg/mL 8.5-72.5 H BRANDI (test code = BRANDI) Anthropologist ID - ADMIN Lab Interpretation (test Abnormal code = 82685-5) [facility], [id number] 11:05:08 Test Item Value Reference Range Interpretation Comments PTH (test code = 2731-8) 449.7 pg/mL 8.5-72.5 H BRANDI (test code = BRANDI) Anthropologist ID - ADMIN Lab Interpretation (test Abnormal code = 27821-5) [facility], [id number] 11:05:08 Test Item Value Reference Range Interpretation Comments PTH (test code = 2731-8) 449.7 pg/mL 8.5-72.5 H BRANDI (test code = BRANDI) Anthropologist ID - ADMIN Lab Interpretation (test Abnormal code = 82427-3) [facility], [id number] 11:05:08 Test Item Value Reference Range Interpretation Comments PTH (test code = 2731-8) 449.7 pg/mL 8.5-72.5 H BRANDI (test code = BRANDI) Anthropologist ID - ADMIN Lab Interpretation (test Abnormal code = 89527-1) [facility], [id number] 11:05:08 Test Item Value Reference Range Interpretation Comments PTH (test code = 2731-8) 449.7 pg/mL 8.5-72.5 H BRANDI (test code = BRANDI) Anthropologist ID - ADMIN Lab Interpretation (test Abnormal code = 72832-4) [facility], [id number] 11:05:08 Test Item Value Reference Range Interpretation Comments PTH (test code = 2731-8) 449.7 pg/mL 8.5-72.5 H BRANDI (test code = BRANDI) Anthropologist ID - ADMIN Lab Interpretation (test Abnormal code = 87054-8) [facility], [id number] 11:05:08 Test Item Value Reference Range Interpretation Comments PARATHYROID HORMONE INTACT 449.7 pg/mL 8.5-72.5 H (BEAKER) (test code = 577) Anthropologist ID - [id number] 09:50:35 Test Item Value Reference Range Interpretation Comments FERRITIN (BEAKER) (test code = 926.02 ng/mL 5.00-275.00 H 361) Anthropologist ID - ADMINIRON, TIBC, % SAT. (WITHOUT FERRITIN)2021-06-08 09:30:51 Test Item Value Reference Range Interpretation Comments IRON (BEAKER) (test code = 547) 110.0 ug/dL 40.0-160.0 TOTAL IRON BINDING CAPACITY 135 ug/dL 250-450 L (BEAKER) (test code = 769) IRON % SATURATION (2) (BEAKER) 81 % 20-55 H (test code = 2590) Anthropologist ID - ADMINPOCT-GLUCOSE [id number] 07:11:26 Test Item Value Reference Range Interpretation Comments POC-GLUCOSE METER 199 mg/dL 70-110 H : TESTED A T [facility] 67[address] (BEAKER) (test code = [place], 1538) [address]: Anthropologist/Techni kelle ID = [id number] for Tavia Bruce Vitamin 06:28:47 Test Item Value Reference Range Interpretation Comments Vitamin B12 (test code = 1626 pg/mL 213-816 H 2132-9) BRANDI (test code = BRANDI) Anthropologist ID - ADMIN Lab Interpretation (test Abnormal code = 12584-9) [facility] [id number] 06:28:47 Test Item Value Reference Range Interpretation Comments Vitamin B12 (test code = 1626 pg/mL 213-816 H 2132-9) BRANDI (test code = BRANDI) Anthropologist ID - ADMIN Lab Interpretation (test Abnormal code = 09947-3) [facility] [id number] 06:28:47 Test Item Value Reference Range Interpretation Comments Vitamin B12 (test code = 1626 pg/mL 213-816 H 2132-9) BRANDI (test code = BRANDI) Anthropologist ID - ADMIN Lab Interpretation (test Abnormal code = 83472-2) [facility] [id number] 06:28:47 Test Item Value Reference Range Interpretation Comments Vitamin B12 (test code = 1626 pg/mL 213-816 H 2132-9) BRANDI (test code = BRANDI) Anthropologist ID - ADMIN Lab Interpretation (test Abnormal code = 43271-5) [facility] [id number] 06:28:47 Test Item Value Reference Range Interpretation Comments Vitamin B12 (test code = 1626 pg/mL 213-816 H 2132-9) BRANDI (test code = BRANDI) Anthropologist ID - ADMIN Lab Interpretation (test Abnormal code = 70167-6) [facility] [id number] 06:28:47 Test Item Value Reference Range Interpretation Comments Vitamin B12 (test code = 1626 pg/mL 213-816 H 2132-9) BRANDI (test code = BRANDI) Anthropologist ID - ADMIN Lab Interpretation (test Abnormal code = 67293-2) [facility] [id number] 06:28:47 Test Item Value Reference Range Interpretation Comments Vitamin B12 (test code = 1626 pg/mL 213-816 H 2132-9) BRANDI (test code = BRANDI) Anthropologist ID - ADMIN Lab Interpretation (test Abnormal code = 27967-5) [facility] [id number] 06:28:47 Test Item Value Reference Range Interpretation Comments Vitamin B12 (test code = 1626 pg/mL 213-816 H 2132-9) BRANDI (test code = BRANDI) Anthropologist ID - ADMIN Lab Interpretation (test Abnormal code = 11652-9) [facility] [id number] 06:28:47 Test Item Value Reference Range Interpretation Comments Vitamin B12 (test code = 1626 pg/mL 213-816 H 2132-9) BRANDI (test code = BRANDI) Anthropologist ID - ADMIN Lab Interpretation (test Abnormal code = 84777-8) [facility] [id number] 06:28:47 Test Item Value Reference Range Interpretation Comments Vitamin B12 (test code = 1626 pg/mL 213-816 H 2132-9) BRANDI (test code = BRANDI) Anthropologist ID - ADMIN Lab Interpretation (test Abnormal code = 49761-8) [facility] [id number] 06:28:47 Test Item Value Reference Range Interpretation Comments Vitamin B12 (test code = 1626 pg/mL 213-816 H 2132-9) BRANDI (test code = BRANDI) Anthropologist ID - ADMIN Lab Interpretation (test Abnormal code = 45729-6) [facility] [id number] 06:28:47 Test Item Value Reference Range Interpretation Comments Vitamin B12 (test code = 1626 pg/mL 213-816 H 2132-9) BRANDI (test code = BRANDI) Anthropologist ID - ADMIN Lab Interpretation (test Abnormal code = 39215-6) [facility] [id number] 06:28:47 Test Item Value Reference Range Interpretation Comments VITAMIN B12 (BEAKER) (test code = 1626 pg/mL 213-816 H 774) Anthropologist ID - ADMINBASIC METABOLIC [id number] 06:22:27 Test Item Value Reference Range Interpretation [...] S NOT APPLICABLE FOR DIALYSIS PATIEN TS. Anthropologist ID - [id number] 06:08:16 Test Item Value Reference Range Interpretation Comments MAGNESIUM (BEAKER) (test code = 2.3 mg/dL 1.6-2.6 627) Anthropologist ID - [id number] 06:08:16 Test Item Value Reference Range Interpretation Comments PHOSPHORUS (BEAKER) (test code = 5.6 mg/dL 2.3-4.7 H 604) Anthropologist ID - DBPROTHROMBIN TIME/YBC9843-32-16 05:55:08 Test Item Value Reference Range Interpretation Comments PROTIME (BEAKER) 14.2 seconds 11.9-14.2 (test code = 759) INR (BEAKER) (test 1.12 See_Comment [Automat ed message] code = 370) The system [employer] generated this result transmitted ref erence range: <=5.90. The reference range was not used to int erpret this result as normal/abnormal . RECOMMENDED COUMADIN/WARFARIN INR THERAPY RANGESSTANDARD DOSE: 2.0 - 3.0 Includes: PROPHYLAXIS for venous thrombosis, systemic embolization; TREATMENT for venous thrombosis and/or pulmonary embolus.HIGH RISK: Target INR is 2.5-3.5 for patients with mechanical heart valves.CBC W/PLT COUNT & AUTO [id number] 05:42:08 Test Item Value Reference Range Interpretation [...] = 2801) RAD, CHEST, 1 VIEW, NON [id number] 02:35:00Reason for exam:->shortness of breathShould this be performed at the bedside?->Yes [facility] 1955 Sex: FFINAL REPORT RAD, CHEST, 1 VIEW, NON DEPT INDICATION: shortness of breath COMPARISON: None FINDINGS: Portable frontal view of the chest. 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 Lungs and pleura: No airspace consolidation or effusion. No pneumothorax. Heart and mediastinum: Unremarkable cardiomediastinal contours. Additional findings: Status post median sternotomy. Signed: [facility] Verified Date/Time: 06/08/2021 02:35:39 POCT-GLUCOSE [id number] 23:26:33 Test Item Value Reference Range Interpretation Comments POC-GLUCOSE METER 279 mg/dL 70-110 H : TESTED A T [facility] 6720 (BEAKER) (test code = [place], 1538) [address]: Anthropologist/Techni kelle ID = [id number] for Tavia Bruce COMPREHENSIVE METABOLIC [id number] 22:28:11 Test Item Value Reference Range Interpretation [...] S NOT APPLICABLE FOR DIALYSIS PATIEN TS. Anthropologist ID - DBVancomycin level, turoqc0310-30-26 22:19:31 Test Item Value Reference Range Interpretation Comments Vancomycin Rm (test 16.1 ug/mL code = 57947-1) BRANDI (test code = Reference Range: No BRANDI) NormalsOperator ID - DB [facility] California[facility]com[facility] level, [id number] 22:19:31 Test Item Value Reference Range Interpretation Comments Vancomycin Rm (test 16.1 ug/mL code = 07221-6) BRANDI (test code = Reference Range: No BRANDI) NormalsOperator ID - DB [facility] California[facility]com[facility] level, [id number] 22:19:31 Test Item Value Reference Range Interpretation Comments Vancomycin Rm (test 16.1 ug/mL code = 68653-8) BRANDI (test code = Reference Range: No BRANDI) NormalsOperator ID - DB [facility], [id number] 22:19:31 Test Item Value Reference Range Interpretation Comments Vancomycin Rm (test 16.1 ug/mL code = 10295-0) BRANDI (test code = Reference Range: No BRANDI) NormalsOperator ID - DB [facility], [id number] 22:19:31 Test Item Value Reference Range Interpretation Comments Vancomycin Rm (test 16.1 ug/mL code = 89983-2) BRANDI (test code = Reference Range: No BRANDI) NormalsOperator ID - DB [facility], [id number] 22:19:31 Test Item Value Reference Range Interpretation Comments Vancomycin Rm (test 16.1 ug/mL code = 96625-9) BRANDI (test code = Reference Range: No BRANDI) NormalsOperator ID - DB [facility], [id number] 22:19:31 Test Item Value Reference Range Interpretation Comments Vancomycin Rm (test 16.1 ug/mL code = 52917-7) BRANDI (test code = Reference Range: No BRANDI) NormalsOperator ID - DB [facility], [id number] 22:19:31 Test Item Value Reference Range Interpretation Comments Vancomycin Rm (test 16.1 ug/mL code = 25052-0) BRANDI (test code = Reference Range: No BRANDI) NormalsOperator ID - DB [facility], [id number] 22:19:31 Test Item Value Reference Range Interpretation Comments Vancomycin Rm (test 16.1 ug/mL code = 53820-7) BRANDI (test code = Reference Range: No BRANDI) NormalsOperator ID - DB [facility], [id number] 22:19:31 Test Item Value Reference Range Interpretation Comments Vancomycin Rm (test 16.1 ug/mL code = 63341-3) BRANDI (test code = Reference Range: No BRANDI) NormalsOperator ID - DB [facility], [id number] 22:19:31 Test Item Value Reference Range Interpretation Comments Vancomycin Rm (test 16.1 ug/mL code = 46375-5) BRANDI (test code = Reference Range: No BRANDI) NormalsOperator ID - DB [facility], [id number] 22:19:31 Test Item Value Reference Range Interpretation Comments Vancomycin Rm (test 16.1 ug/mL code = 13755-1) BRANDI (test code = Reference Range: No BRANDI) NormalsOperator ID - DB [facility] CaliforniaVANCOMYCIN LEVEL, [id number] 22:19:31 Test Item Value Reference Range Interpretation Comments VANCOMYCIN RANDOM (BEAKER) (test 16.1 ug/mL code = 523) Reference Range: No NormalsOperator ID - DBCBC W/PLT COUNT & AUTO [id number] 22:05:27 Test Item Value Reference Range Interpretation [...] Interpretation Comments POCT GLU (test code = 3017563719) 129 mg/dL 70-110 H Lab Interpretation (test code = Abnormal 82972-0) [facility] GLUCOSE (AUTOMATED)2021-05-22 17:41:02 Test Item Value Reference Range Interpretation Comments POCT GLU (test code = 2851788293) 120 mg/dL 70-110 H Lab Interpretation (test code = Abnormal 90791-8) [facility] GLUCOSE (AUTOMATED)2021-05-22 13:46:20 Test Item Value Reference Range Interpretation Comments POCT GLU (test code = 0727814193) 174 mg/dL 70-110 H Lab Interpretation (test code = Abnormal 12197-4) [facility] (NA, K, CL, CO2, GLUCOSE, BUN, CREATININE, CA)2021-05-22 10:34:14 Test Item Value Reference Range Interpretation Comments NA (test code = 128 mmol/L 135-145 L 7438951392) K (test code = 5.2 mmol/L 3.5-5.0 H 4662812122) CL (test code = 95 mmol/L 98-108 L 6359535566) CO2 TOTAL (test code = 24 mmol/L 23-31 2810463843) AGAP (test code = 2-16 8591659446) BUN (test code = 43 mg/dL 7-23 H 1703355452) GLUCOSE (test code = 182 mg/dL 70-110 H 5593609043) CREATININE (test code = 5.93 mg/dL 0.50-1.04 H 1131198970) CALCIUM (test code = 8.0 mg/dL 8.6-10.6 L 7872936821) eGFR (test code = mL/min/1.73m2 9841745332) BRANDI (test code = BRANDI) Association of [...] tests). Lab Interpretation Abnormal (test code = 31021-7) [facility] WITH [id number] 10:25:51 Test Item Value Reference Range Interpretation Comments WBC (test code = See_Comment [Automated 5790-2) message] The sy stem which generated this [...] (test code = 50.7 fL 39.0-49.9 H 56626-0) RDW-CV (test code = 14.6 % 12.0-15.5 788-0) PLT (test code = See_Comment L [Automated 777-3) message] The sy stem which generated this result transmitted reference range : 166 - 358 10*3/ ?L. The reference r alba was not used to interpret this result as normal/abnormal . MPV (test code = 11.2 fL 9.5-12.9 16722-0) NRBC/100 WBC (test See_Comment [Automat ed code = 9863579659) message] The system which generated this result transmitted reference range : 0.0 - 10.0 /100 WBCs. The refer ence range was not u sed to interpret th is result as normal/abnormal . NRBC x10^3 (test code <0.01 See_Comment [Auto mated = 4976232705) message] The s ystem which generated this result transmitted reference range : 10*3/?L. The reference range was not used to interpret this result as normal/abnormal . GRAN MAT (NEUT) % 75.4 % (test code = 770-8) IMM GRAN % (test code 0.70 % = 7615320516) LYMPH % (test code = 12.5 % 736-9) MONO % (test code = 10.3 % 5905-5) EOS % (test code = 0.8 % 713-8) BASO % (test code = 0.3 % 706-2) GRAN MAT x10^3(ANC) 4.54 10*3/uL 1.88-7.09 (test code = 3229355919) IMM GRAN x10^3 (test 0.04 10*3/uL 0.00-0.06 code = 1500954664) LYMPH x10^3 (test code 0.75 10*3/uL 1.32-3.29 L = 731-0) MONO x10^3 (test code 0.62 10*3/uL 0.33-0.92 = 742-7) EOS x10^3 (test code = 0.05 10*3/uL 0.03-0.39 711-2) BASO x10^3 (test code <0.03 0.01-0.07 = 704-7) Lab Interpretation Abnormal (test code = 51321-0) [facility]AL [id number] 05:24:06 Test Item Value Reference Range Interpretation Comments NT-proBNP (test code 505588 pg/mL See_Comment H [Autom ated = 4721654164) message] The system which generated this result transmitted reference range : <=125. The reference range was not used to interpret this result as normal/abnormal . BRANDI (test code = BRANDI) Biotin has been reported to cause a negative bias, interpret results relative to patient's use of biotin. Lab Interpretation Abnormal (test code = 72014-5) [facility]villeGlucose, [id number] 04:46:54 Test Item Value Reference Range Interpretation Comments GLUCOSE (test code = 5772909593) 107 mg/dL 70-110 Lab Interpretation (test code = Normal 06453-2) [facility]villeProtein Total [id number] 04:46:34 Test Item Value Reference Range Interpretation Comments T PROTEIN (test code = 6075942008) 6.1 g/dL 6.3-8.2 L Lab Interpretation (test code = Abnormal 81625-3) [facility]villeLACTATE [id number] 04:46:18 Test Item Value Reference Range Interpretation Comments LDH (test code = 3299706079) 311 U/L 300-600 Lab Interpretation (test code = Normal 24193-4) [facility]villeTROPONIN [id number] 00:24:29 Test Item Value Reference Interpretation Comments Range TROPONIN I (test 0.084 ng/mL See_Comment H [Automated code = 5881355203) message] The system which generated this result [...] biotin. Lab Interpretation Abnormal (test code = 19702-6) [facility]villeCyto Pleural [id number] 23:21:29 Test Item Value Reference Range Interpretation Comments Case Report (test code = Non-Gynecologic 7066063295) Cytology ?Case: [id number] ?Authorizing Provider: ?Candido Robison DO ?Collected: ? 05/20/2021 1604 ?Ordering Location: ? ? [facility] Medicine Surgery Unit ?Received: ?05/20/2021 1631 ?Pathologist: ? Mariana, ? MD Duc ?Specimen: ? ?PLEURAL, RIGHT ? Final Diagnosis (test y4ggsBBcHHHjf2woIPGjw code = 4395572786) GFuZzEwMzNcZnRuYmpcdW MxIHtccnRmMVxlcGljOTY nVJbjwtCeAWLbrJBmA5Xc iewrVVkePN8oMV8jsRiar QJniBZeUECrLbGje7zfq6 91lPLsa5ygGZFAukqhbZj 0xQqlR60ga5L1EgcaY65y nNVaATU7YCUzRQLdtFQrY KMoBFI9BYHyvYCxY8gwOW KuKO7yjbcuQZdiSMpiFCV jtCT5ISQwpVRsZ3AuGLIc AGydYTKyrrs5JaDmYq3nq GVyeTcyMFxwYXJkXHBsYW luXGJcZnMyMFxwYXIgQS4 gIFBMRVVSQSwgUklHSFQ7 BXGFH6OID2UQYVQONWWoP vaRHBX6XBEkiwOrBZDkIO 4qBzRMLRXYGrSyLl9DVM6 BTElHTkFOVCBDRUxMUyBc ByImZQNHDQBRX01FFN8QY VxwYXJccGFyIFBhdWwgWW 47tddgGF7BGDGwyVHceXG usXbvvj55TFH9HQKeSmE3 LzIwMjJccHJvdGVjdDAgX HBsYWluXGZzMjAgICAyOj M1HVQKIBLlxxlfZRZ5c1r ydGYxXHNzdGVjZjIyMDAw ESVba9iaOBUvqZViBbQaK zNcZnRuYmpcdWMxXGRlZm Iwh6ddm817rMEna5szBBQ dOmE2xOOoLRSnuOlnnzd6 rWyhLtZqWCJwn2vkzsDeP mNoYXJzZXQwIEFyaWFsO3 09DHFtWRcxx6epv0BqZTC caEOry9A8ZRODRXreEyMb Z380c6upz3mvtaHexQG1G NKzDUF8HVkstgHjmbI5GB mgmOJfKlN2SViqldEgMTv pwfFkxfTdJrz9LOIjY798 UWW3uZtzw1doIEM6TMZzX WWqWurnSp1tyDVzR546ME TcQYZANITktIe9JEGrjvC xtkEcjXZAo026M222p4jq DTFrxrVfbYwNuojaq2weX 319XHBhcGVydzEyMjQwXH HhoKKrcOU2BOQkUZ4titj gUVqiJBaaTEItjuS3HJVg nCOzA0TlDSHhTX5rzxwwD AP9CGrqCRSmJMZ2FsSePV Pnz0Fsdyh3LiYwaq1lsj8 4PRR0m5QcuJinDRW5DCU4 RoGiPx3zxKSoABWcPJ9bS wRmtGOhOBIvkr60bQnnBA wxqiVplH2xGtUvCXXafZA fVSBdID3cgVXhGBWwvO9a cmxjXHBnYnJkcmhlYWRcc TtzbqCsFa9znGvuNED6MZ ygJ1kmgQ1fJdD0SKjzY0m qfL4tOAt5CCsicJZ8WGRi qV9iRN8tsyfyw5miERzsL OblCPScmpE2jbS8BXXvhJ HbT9DyxJ2lNEGbES9jsic cd8qnNII6JNklGPNlEKW3 YqBhALSjo0Krhfo6BsEnm 9WtqPTtVMwrJ92lo015RC CqhsIuU4zweHEmjleulGO qgkidOQdrffB5DPKxBYCe YWluXGYxXGZzMjBcbGFuZ zEwMzNcaGljaFxmMVxkYm NlIVJbQMzxL9gaNmFgL5E yXGZzMjBccGFyIEkgaGF2 RMYhHXAfw90nsCk9WEFzv jvxa6TgAAXwpWCpkHAsyY 7bwoNmh1viXEFrJLHuRLW xX7IdHHG7jABpSSFxnSXt pVG9VV3zlkCdGB8iOUEfA nkgcmVzaWRlbnRzLCBmZW fea5irNH0aEDPaePngiS9 khSA1HKHxu1lckGUmqOSf v5maz9EhhtMoYQmlQALeE QrnMLEfGPOfFL9tGNKepO EtbqTvk1E8RfrjnONurhg cGusbaiC1YIigpfpfDLLp NHebE3plIkLxLKSheWxgU pljr7NpWSVeHIThIxnswL FyfX0= Final Diagnosis Comment j0fehFTwCNWlrUS7OlVjM (test code = 9803824576) UQnk6mej8CseWIsaYWaZU esnSEqlcBnpp59bQO9tF0 7HP3uBJCuIuB9WQZgqwG2 Yem5QDBhGYRiuSPeJ215t 8nyl0gwugVzcEN1bLtlIY DqfkuiGvX1ZBlnHMDweux jGPb9AMcnQNHmjWU6EYZa zCEvC9ZqQXWdOJ7getv6H WE8ROzoNSCzKrG3MSFlnY OiRKBpiJzlQQoyu200MNH 3NxMuETTbqoVepEqbtR0s ZnMyMCBTbWVhcnMgYXJlI ZDihLVhL6ZugYXzIIViHE 1rWCTli0ghhaMtLJFjIR7 oX10zgSFow0BrQEuiCRsa O8GnyBNjBC0gKBEdi84yP AHgYA2srfEgRxKUiqPdSE boK81sgjFhG5VkcWSaqDB svcXlGqnwEW6qZAEmxw8= Clinical Information Clinical Hx: ESRD (test code = 4241418591) Gross Description (test e4xlbPMjSLGykDO8NgIrQ code = 8627134462) TDvv9kvm2UmjDEgxWDoLL qyjJVbezTyjv01xNF3aS0 3BN1pHQWnYyA4MCGrnsC8 Tdg3DYAaTSSzwJEyV105c 0duj6xnroJctTJ0pWczJF GitexaTnL5ECxcJKPevxq nQBr1XLemXVUowSW6BQFz rQWvI5MuHXPkYB2qzeu2P AP3ZTjrYXMwKdO4QEYkaD YsLIKenJecDYuwy496GDX 1CuWoJXNakwE8QYtjPINx B3MyX5GhNNwrPBT7IVZpH CBcXHQgMSBcXGZsIFxcbm K7q9qcWKRloQQrOOF5PKc caWQgNTEwMDIgXFxkYiBP GdUeAmMwXZF7XHS9PEUeZ Gj3RWpnV2MYRIKqQCU3WR QtFWd6UhH0CBp2EAZTYq7 dIDZ5WBXiZJf5IYS4NEY2 NCBcXHQgMiBcXGZsIFxcZ iBBcmlhbCBcXGZzIDEwIF hsxaQ9VQCxEHyyBTFvCiQ ccGFyXGZzMjJccGFyIEEx LiAgUExFVVJBLCBSSUdIV CjpKNbDFbWAKG4FBYTLEq BGTFVJRFxwYXIgUmVjZWl 2RACyCvYkr2aiqMQfXVMu PkbmBF6hMVagdDjtdxMey HVpZCBccGFyIFByZXBhcm EbYCGxx4tiJISbBMrjUZR hcGFuaWNvbGFvdSBjeXRv j8KycdymIY6pREEqQg6zK I7ro0FjjEWrtZLxw4Afji UtujSeIDYzkGwsotsoj0z ejDaey0SffTHrWW93SPRl qQFsNNX7HH1ksDzwURG1 Disclaimer (test code = m1hgfFGuYUPzt4aaUBOgz 8845334210) GFuZzEwMzNcZnRuYmpcdW MhYGpmrsXvABvda6XxN8M yMjAwMFxhbnNpXGRlZmxh fvzjCIKmFTH1thPiKATyC VsyQEVjLRkzEz9spSIbiC zmMySdDSJew0eyylLGFKv tRrWnY855MVGvKJtuy5yj c6PqXKYmzXNqt8E6UVQSy fkwxWu8sGadY37oc8N5Pi lzM0udIFVbBQMyV4NoRM7 qHBXlMin1DPH3BVX1RIQz SEFbP4OeZR0iNTMwlBZfI Qy7r9fojKuyHCNfNRG8w7 zdZIdggiVnST1afm4tkDv 4w7xutcNmOGOjRYThfWJK DFGlW0ZsfZxqKr6raEv0e AxjTqkvQML5Skt3PR9vlf 84cdd4iDerKOKakzghYfN 3SQlnUBHxtfchRKn7VXif TRJooYW2HMHugURlP1NeH WCkHG9ozwc9HLP6DMbxSH KzOoI8UNNdwOCePFYcrEt sOBdbo127RUF9HyXvFI9e Z1Sir0V2fP0mdWAiBDOgl VQgBwDvRKAlit0bkBQsKL pal4UdHNP8ceT8bXJrdIL oWGVzQC32Chbtf4DoMevw o5CbE92yhLJ4JMtiq8uiJ Q4eEgI1fkUbYVvym7cxtX 0nLjS0RIibHG7iWU9eEGQ jzH4rvnjeWLEeTjRbdwco XCKuiNlbzyViMo9oeOnuA IS4IDrqW3plyE2sVkD7ZT ewB6kztG5vCCe3VRjfrGV 9MRBqbG6rTN9hncstj9mn GZwhADewDLJrtnL2liS8N KQjlLCzR9RreB3fRONsLY 3kyrikf6lvKVE8BFijHPX eTFT3XwWdPZTjf4Lzeio5 MjAor4QntGQbDUvwD63ys 283CJQwteAfM4ltdTDrjm sqaDTuqljcAHpqzgB4EEX vylUkv8QfVBIjPAE5WXuy HIkivCDcPEWqmXkaf3guV 3RscGFyXHBsYWluXGYxXG ZzMjBcbGFuZzEwMzNcaGl jaFxmMVxkYmNoXGYxXGxv R5leOwKvW1QpEFYdNjJti HTpT0kgWNodrcWgDFTvzq XqoXW4QTptY3x6KUWefrW vbAf6yzJhKrKqFZNaXQQ5 AShphJAxOPCtu5Yojylhm KTxUg5joJAaIUIbyU6bML RtERGbTJsoEB8siHr9AKQ DtTYnbDQmLgSSLGJlQM68 keOaVPVDdirzo9V8CAfzY PFqy1ManYEkQ2uhl5DxQW Doi87iZY6hd9C8c2dlQKW 0FS7zq2PeLBHjuLFilIZz ETYed2Tnkbtex0IkFDAfy mOry6KjSWEfzrFynSEqMY XivlRiki5yycWnQMWiHNP rQ3PaxlaamCqmxgPhGMEg on7noqYeXND9WBACKVErI YGqs8RitW5aqCTBQEL4qO Adle3jxqKGnJBgHGXyhq5 9HUYjIB9iK9bzCVNpNVEx lwPymPEjs8OlGZWphVE4l OMuMD6VWmCDn57hOGHjMT QKxvGjCEGgfVhxpNL4bpD 6mM9kSOdDZHOcXbq+IFRo WOHPLTGcLE9dzvFqg6Itk tPjaWyuCOVrjICyy0ZgbA Hck0ZxpVjmu3JwiQUdrWI tJR2qFIZuucnnJDYhQDOT PsCUBGAoibS5w9LwIURdN XQfLMX9aQnzidf3EAQnyV 4vCRTjB5ufibrxSVabDRF nb2FfgW0aeAJGrPIpj6Et hEMrrOEViKGtJD2crmGdO HjHMNhGUYS0suYnQRZft7 ZgSYfbT6ohE39ddOwljPv 7jCW3LKV6nU3kXmm+IFxw YXJccGFyIEFwcHJvcHJpY QPgpWunuvQbO4LuxnObkQ 5opHTvboUpGY0jCL6lX9V 2kKUvEMFxyjNyv4ydCSal dmUgYmVlbiByZXZpZXdlZ UJzl7MjYPxnFBL2ZZnwlh BpbmNsdWRpbmcgSCZFLCB VwNDfaUNaYXZ8ATjrqkQv fvPhYT6vsY3diSylvB1nk CHftXP7aiecGJEuBGSsgJ ubQZSnBK4psSRjXXFjabU AfNbabZSnxB6eX7WxKRAp RUIhap2cUBOdhW8tNDcmm 2VydmljZXMgYXJlIHBlcm Pfah7kZDDivJQEPY8LYVf xsKMkp7IhboBzK6xIAWN2 NUQwNjYwMjgxKSBleGNlc AGzLNZxwg82UGMtqT3cdM lzDBFcfJ9drC7hsJyuhO3 xEyVkLtNzGJktYV3hIOLc M7fqhJJzRJWfVYIuF8hlB qKtmJ3phZtlYQogYpApGe PkXQnqNIN9qW== Embedded Images (test code = 3197050807) [facility] GLUCOSE (AUTOMATED)2021-05-21 23:17:01 Test Item Value Reference Range Interpretation Comments POCT GLU (test code = 3942516715) 109 mg/dL 70-110 Lab Interpretation (test code = Normal 12744-2) [facility] [id number] 21:50:44 UNREMARKABLE LEUKOCYTES WITH ABSOLUTE LYMPHOPENIA. MODERATE NORMOCYTIC NORMOCHROMIC ANEMIA. MILD THROMBOCYTOPENIA.[facility] VITAMIN B12, [id number] 18:38:08 Test Item Value Reference Range Interpretation Comments VIT B12 (test code = >1000 240-930 H 4723192423) BRANDI (test code = BRANDI) Biotin has been reported to cause a positive bias, interpret results relative to patient's use of biotin. Lab Interpretation (test Abnormal code = 76593-3) [facility], [id number] 17:51:01 Test Item Value Reference Range Interpretation Comments VIT D 25OH (test code = 24 ng/mL 25-80 L 49274-1) BRANDI (test code = BRANDI) Deficiency: <20 ng/mLInsufficiency: 20-24 ng/mLOptimal: 25-80 ng/mL Lab Interpretation (test Abnormal code = 21968-1) [facility] 17:42:20 Test Item Value Reference Range Interpretation Comments FOLATE SER (test code = 6.1 ng/mL 3.0-20.0 Biot in has been 2031454602) reported to cau se a positive bias, interpret resul ts relative to patient's use o f biotin. Lab Interpretation (test Normal code = 74186-4) [facility] GLUCOSE (AUTOMATED)2021-05-21 17:17:00 Test Item Value Reference Range Interpretation Comments POCT GLU (test code = 7287826814) 175 mg/dL 70-110 H Lab Interpretation (test code = Abnormal 61523-8) [facility]TR[facility] [id number] 14:52:32 Test Item Value Reference Interpretation Comments Range TROPONIN I (test 0.109 ng/mL See_Comment H [Automated code = 5720983939) message] The system which generated this result [...] biotin. Lab Interpretation Abnormal (test code = 73062-2) [facility]villeIRON [id number] 14:49:31 Test Item Value Reference Range Interpretation Comments IRON (test code = 3046755322) 30 ug/dL 50-160 L TIBC (test code = 5599098299) 185 ug/dL 250-410 L % FE SAT (test code = 1951582669) 16 % 20-50 L Lab Interpretation (test code = Abnormal 03013-9) [facility]2021-05-21 14:06:00 Test Item Value Reference Range Interpretation Comments POCT GLU (test code = 8920521263) 191 mg/dL 70-110 H Lab Interpretation (test code = Abnormal 77383-0) [facility]FERR[facility]IN [id number] 14:05:25 Test Item Value Reference Range Interpretation Comments FERRITIN (test code = 715.0 ng/mL 11.0-264.0 H 6606090144) BRANDI (test code = BRANDI) Biotin has been reported to cause a negative bias, interpret results relative to patient's use of biotin. Lab Interpretation (test Abnormal code = 72094-4) [facility]villeN-TERMINAL [id number] 13:56:37 Test Item Value Reference Range Interpretation Comments NT-proBNP (test code 630721 pg/mL See_Comment H [Autom ated = 3966124254) message] The system which generated this result transmitted reference range : <=125. The reference range was not used to interpret this result as normal/abnormal . BRANDI (test code = BRANDI) Biotin has been reported to cause a negative bias, interpret results relative to patient's use of biotin. Lab Interpretation Abnormal (test code = 85691-7) [facility]villeTROP[facility] [id number] 13:43:04 Test Item Value Reference Interpretation Comments Range TROPONIN I (test 0.100 ng/mL See_Comment H [Automated code = 1095087699) message] The system which generated this result [...] biotin. Lab Interpretation Abnormal (test code = 52852-5) [facility] (70076) (ALB,T.PRO,BILI T,BU/BC,ALT,AST,ALK PHOS)2021-05-21 13:30:03 Test Item Value Reference Range Interpretation Comments TOTAL BILI (test code = 6036027604) 0.7 mg/dL 0.1-1.1 BILI UNCON (test code = 8564338828) 0.0 mg/dL 0.1-1.1 L BILI CONJ (test code = 7328508964) 0.0 mg/dL 0.0-0.3 T PROTEIN (test code = 1222621789) 7.2 g/dL 6.3-8.2 ALBUMIN (test code = 2459261148) 3.5 g/dL 3.5-5.0 ALK PHOS (test code = 6041805087) 156 U/L 34-122 H ALTv (test code = 1742-6) 12 U/L 5-35 AST(SGOT) (test code = 8555006075) 28 U/L 13-40 Lab Interpretation (test code = Abnormal 42056-4) [facility] WITH [id number] 10:18:09 Test Item Value Reference Range Interpretation [...] (test code = 52.3 fL 39.0-49.9 H 95639-6) RDW-CV (test code = 14.9 % 12.0-15.5 788-0) PLT (test code = See_Comment L [Automated 777-3) message] The sy stem which generated this result transmitted reference range : 166 - 358 10*3/ ?L. The reference r alba was not used to interpret this result as normal/abnormal . MPV (test code = 11.0 fL 9.5-12.9 12946-8) NRBC/100 WBC (test See_Comment [Automat ed code = 1205951901) message] The system which generated this result transmitted reference range : 0.0 - 10.0 /100 WBCs. The refer ence range was not u sed to interpret th is result as normal/abnormal . NRBC x10^3 (test code <0.01 See_Comment [Auto mated = 8578675879) message] The s ystem which generated this result transmitted reference range : 10*3/?L. The reference range was not used to interpret this result as normal/abnormal . GRAN MAT (NEUT) % 74.4 % (test code = 770-8) IMM GRAN % (test code 0.30 % = 1751963641) LYMPH % (test code = 12.9 % 736-9) MONO % (test code = 11.2 % 5905-5) EOS % (test code = 0.7 % 713-8) BASO % (test code = 0.5 % 706-2) GRAN MAT x10^3(ANC) 4.40 10*3/uL 1.88-7.09 (test code = 9738648485) IMM GRAN x10^3 (test <0.03 0.00-0.06 code = 9596742286) LYMPH x10^3 (test code 0.76 10*3/uL 1.32-3.29 L = 731-0) MONO x10^3 (test code 0.66 10*3/uL 0.33-0.92 = 742-7) EOS x10^3 (test code = 0.04 10*3/uL 0.03-0.39 711-2) BASO x10^3 (test code 0.03 10*3/uL 0.01-0.07 = 704-7) Lab Interpretation Abnormal (test code = 20396-9) [facility] METABOLIC PANEL (NA, K, CL, CO2, GLUCOSE, BUN, CREATININE, CA)2021-05-21 10:17:29 Test Item Value Reference Range Interpretation Comments NA (test code = 132 mmol/L 135-145 L 7043584451) K (test code = 4.6 mmol/L 3.5-5.0 8762797109) CL (test code = 99 mmol/L 98-108 9898280259) CO2 TOTAL (test code = 27 mmol/L 23-31 7705226090) AGAP (test code = 2-16 0540207234) BUN (test code = 30 mg/dL 7-23 H 9338922907) GLUCOSE (test code = 129 mg/dL 70-110 H 6879489289) CREATININE (test code = 4.51 mg/dL 0.50-1.04 H 4037435738) CALCIUM (test code = 8.1 mg/dL 8.6-10.6 L 8923547231) eGFR (test code = mL/min/1.73m2 1174594997) BRANDI (test code = BRANDI) Association of [...] tests). Lab Interpretation Abnormal (test code = 68093-8) [facility] GLUCOSE (AUTOMATED)2021-05-21 02:24:31 Test Item Value Reference Range Interpretation Comments POCT GLU (test code = 7943710407) 123 mg/dL 70-110 H Lab Interpretation (test code = Abnormal 51407-9) [facility] GLUCOSE (AUTOMATED)2021-05-20 22:40:15 Test Item Value Reference Range Interpretation Comments POCT GLU (test code = 4999963442) 193 mg/dL 70-110 H Lab Interpretation (test code = Abnormal 98934-8) [facility] GLUCOSE (AUTOMATED)2021-05-20 17:24:39 Test Item Value Reference Range Interpretation Comments POCT GLU (test code = 7638400330) 129 mg/dL 70-110 H Lab Interpretation (test code = Abnormal 47277-7) [id number] 16:20:09 Test Item Value Reference Range Interpretation Comments NT-proBNP (test code 115038 pg/mL See_Comment H [Autom ated = 2404382844) message] The system which generated this result transmitted reference range : <=125. The reference range was not used to interpret this result as normal/abnormal . BRANDI (test code = BRANDI) Biotin has been reported to cause a negative bias, interpret results relative to patient's use of biotin. Lab Interpretation Abnormal (test code = 21175-1) [facility] GLUCOSE (AUTOMATED)2021-05-20 13:50:50 Test Item Value Reference Range Interpretation Comments POCT GLU (test code = 1388078445) 142 mg/dL 70-110 H Lab Interpretation (test code = Abnormal 11433-2) [facility]LAFL[facility] [id number] 11:29:26 Test Item Value Reference Range Interpretation Comments LDH (test code = 7274586044) 424 U/L 300-600 Slight hemolysis Lab Interpretation (test code Normal = 65170-5) [facility] METABOLIC PANEL (NA, K, CL, CO2, GLUCOSE, BUN, CREATININE, CA)2021-05-20 11:28:05 Test Item Value Reference Range Interpretation Comments NA (test code = 132 mmol/L 135-145 L 1341101081) K (test code = 4.6 mmol/L 3.5-5.0 3601368592) CL (test code = 97 mmol/L 98-108 L 3845176031) CO2 TOTAL (test code = 26 mmol/L 23-31 4098711592) AGAP (test code = 2-16 8265588701) BUN (test code = 44 mg/dL 7-23 H 0291908594) GLUCOSE (test code = 161 mg/dL 70-110 H 8056607253) CREATININE (test code = 6.29 mg/dL 0.50-1.04 H 5009286722) CALCIUM (test code = 8.0 mg/dL 8.6-10.6 L 1520012307) eGFR (test code = mL/min/1.73m2 8792145108) BRANDI (test code = BRANDI) Association of [...] tests). Lab Interpretation Abnormal (test code = 79548-4) [facility]ville[facility] / [id number] 11:17:25 Test Item Value Reference Range Interpretation Comments PROTIME PATIENT (test See_Comment [Auto mated message] code = 5964-2) The system [employer] generated this result transmitted ref erence range: 12.0 - 1 4.7 Seconds. The re ference range was not u sed to interpret this result as normal/abnor mal. INR (test code = 6301-6) Nor mal INR <1.1; Warfarin Therap eutic range 2.0 to 3. 0 or 2.5 to 3.5, dep ending upon the indica tions. Lab Interpretation (test Normal code = 47571-6) [facility] GLUCOSE (AUTOMATED)2021-05-20 01:38:05 Test Item Value Reference Range Interpretation Comments POCT GLU (test code = 3298562952) 181 mg/dL 70-110 H Lab Interpretation (test code = Abnormal 26594-6) [facility] GLUCOSE (AUTOMATED)2021-05-19 23:12:33 Test Item Value Reference Range Interpretation Comments POCT GLU (test code = 3069312435) 129 mg/dL 70-110 H Lab Interpretation (test code = Abnormal 68406-5) [facility] GLUCOSE (AUTOMATED)2021-05-19 17:43:05 Test Item Value Reference Range Interpretation Comments POCT GLU (test code = 0432257379) 195 mg/dL 70-110 H Lab Interpretation (test code = Abnormal 76991-2) [facility] [id number] 16:56:37 Test Item Value Reference Range Interpretation Comments NT-proBNP (test code 143465 pg/mL See_Comment H [Autom ated = 9936128115) message] The system which generated this result transmitted reference range : <=125. The reference range was not used to interpret this result as normal/abnormal . BRANDI (test code = BRANDI) Biotin has been reported to cause a negative bias, interpret results relative to patient's use of biotin. Lab Interpretation Abnormal (test code = 35837-9) [facility] METABOLIC PANEL (NA, K, CL, CO2, GLUCOSE, BUN, CREATININE, CA)2021-05-19 15:16:19 Test Item Value Reference Range Interpretation Comments NA (test code = 132 mmol/L 135-145 L 1831477180) K (test code = 4.7 mmol/L 3.5-5.0 9243914214) CL (test code = 98 mmol/L 98-108 3819092187) CO2 TOTAL (test code = 24 mmol/L 23-31 6006168822) AGAP (test code = 2-16 6714871640) BUN (test code = 30 mg/dL 7-23 H 4111417157) GLUCOSE (test code = 101 mg/dL 70-110 9304079119) CREATININE (test code = 4.70 mg/dL 0.50-1.04 H 0326229405) CALCIUM (test code = 8.3 mg/dL 8.6-10.6 L 7256622811) eGFR (test code = mL/min/1.73m2 2170211490) BRANDI (test code = BRANDI) Association of [...] tests). Lab Interpretation Abnormal (test code = 16838-8) [facility]2021-05-19 14:16:27 Test Item Value Reference Range Interpretation Comments POCT GLU (test code = 0250101951) 112 mg/dL 70-110 H Lab Interpretation (test code = Abnormal 71503-7) [facility] WITH [id number] 13:09:08 Test Item Value Reference Range Interpretation [...] (test code = 51.2 fL 39.0-49.9 H 13527-4) RDW-CV (test code = 14.6 % 12.0-15.5 788-0) PLT (test code = See_Comment L [Automated 777-3) message] The sy stem which generated this result transmitted reference range : 166 - 358 10*3/ ?L. The reference r alba was not used to interpret this result as normal/abnormal . MPV (test code = 11.0 fL 9.5-12.9 28308-6) NRBC/100 WBC (test See_Comment [Automat ed code = 0793647876) message] The system which generated this result transmitted reference range : 0.0 - 10.0 /100 WBCs. The refer ence range was not u sed to interpret th is result as normal/abnormal . NRBC x10^3 (test code <0.01 See_Comment [Auto mated = 9837554165) message] The s ystem which generated this result transmitted reference range : 10*3/?L. The reference range was not used to interpret this result as normal/abnormal . GRAN MAT (NEUT) % 82.8 % (test code = 770-8) IMM GRAN % (test code 0.40 % = 1613637545) LYMPH % (test code = 7.8 % 736-9) MONO % (test code = 7.9 % 5905-5) EOS % (test code = 0.7 % 713-8) BASO % (test code = 0.4 % 706-2) GRAN MAT x10^3(ANC) 5.98 10*3/uL 1.88-7.09 (test code = 7938736267) IMM GRAN x10^3 (test 0.03 10*3/uL 0.00-0.06 code = 3244985274) LYMPH x10^3 (test code 0.56 10*3/uL 1.32-3.29 L = 731-0) MONO x10^3 (test code 0.57 10*3/uL 0.33-0.92 = 742-7) EOS x10^3 (test code = 0.05 10*3/uL 0.03-0.39 711-2) BASO x10^3 (test code 0.03 10*3/uL 0.01-0.07 = 704-7) Lab Interpretation Abnormal (test code = 80166-7) [facility] B Surface Antibody (HBsAb)2021-05-19 09:35:37 Test Item Value Reference Range Interpretation Comments HBsAB (test code = Positive 3322674119) HBsAb mIU/mL Semi-Quantitative (test code = 8687447280) BRANDI (test code = Interpretation: BRANDI) ?Hepatitis B Surface Antibody ? Negative - Patient is considered to be not immune to infection with HBV. ? ? Positive - Anti-HBs detected at greater than or equal to 12 mIU/mL. ?Patient is considered to be immune to infection with HBV. ? [facility] B Surface Antigen (HBsAg)2021-05-19 09:17:53 Test Item Value Reference Range Interpretation Comments HBsAg Semi-Quantitative (test code = Negative Negative 5195-3) [facility] GLUCOSE (AUTOMATED)2021-05-19 03:13:02 Test Item Value Reference Range Interpretation Comments POCT GLU (test code = 0395669543) 110 mg/dL 70-110 Lab Interpretation (test code = Normal 64780-1) [facility] GLUCOSE (AUTOMATED)2021-05-18 23:00:40 Test Item Value Reference Range Interpretation Comments POCT GLU (test code = 5391487938) 177 mg/dL 70-110 H Lab Interpretation (test code = Abnormal 45139-9) [facility] GLUCOSE (AUTOMATED)2021-05-18 17:50:50 Test Item Value Reference Range Interpretation Comments POCT GLU (test code = 0918654800) 179 mg/dL 70-110 H Lab Interpretation (test code = Abnormal 97798-7) [facility] GLUCOSE (AUTOMATED)2021-05-18 17:26:29 Test Item Value Reference Range Interpretation Comments POCT GLU (test code = 8606689926) 171 mg/dL 70-110 H Lab Interpretation (test code = Abnormal 10307-2) [facility] METABOLIC PANEL (NA, K, CL, CO2, GLUCOSE, BUN, CREATININE, CA)2021-05-18 15:43:01 Test Item Value Reference Range Interpretation Comments NA (test code = 128 mmol/L 135-145 L 7598382259) K (test code = 5.5 mmol/L 3.5-5.0 H 4249237014) CL (test code = 94 mmol/L 98-108 L 3917723094) CO2 TOTAL (test code = 24 mmol/L 23-31 3126165972) AGAP (test code = 2-16 8614872923) BUN (test code = 56 mg/dL 7-23 H 5394241924) GLUCOSE (test code = 130 mg/dL 70-110 H 2876498875) CREATININE (test code = 7.52 mg/dL 0.50-1.04 H 5677608135) CALCIUM (test code = 7.8 mg/dL 8.6-10.6 L 1211997320) eGFR (test code = mL/min/1.73m2 7576528487) BRANDI (test code = BRANDI) Association of [...] tests). Lab Interpretation Abnormal (test code = 57949-2) [facility] GLUCOSE (AUTOMATED)2021-05-18 13:33:12 Test Item Value Reference Range Interpretation Comments POCT GLU (test code = 5901318653) 129 mg/dL 70-110 H Lab Interpretation (test code = Abnormal 50151-5) [facility] GLUCOSE (AUTOMATED)2021-05-17 22:57:15 Test Item Value Reference Range Interpretation Comments POCT GLU (test code = 8747621567) 215 mg/dL 70-110 H Lab Interpretation (test code = Abnormal 76570-8) [facility]2021-05-17 18:02:09 Test Item Value Reference Range Interpretation Comments LVOT diameter (test code 2.00 cm = 8995549427) MV Peak E [place] (test code 134.0 cm/s = 9331909671) MV Peak A [place] (test code 54.2 cm/s = 3209189712) E/A ratio (test code = ratio 0892699833) E wave decelartion time 0.22 s (test code = 6354929348) LA size (test code = 5.4 cm 9737102838) MV stenosis pressure 1/2 65.0 ms time (test code = 5813682711) MV dec slope (test code 604.00 cm/s2 = 8000638699) Ao root annulus (test 2.7 cm code = 7481177703) Ao root diam (test code 2.70 cm = 5217602763) Aortic root (test code = 2.7 cm 0351069094) LVIDD (test code = 5.10 cm 1562854665) IVS (test code = 1.06 cm 6958819681) Interventricular Septum 1.06 cm Diastolic Thickness by 2D (test code = 6042568) LVPWD (test code = 1.00 cm 7724076113) PW (test code = 1.00 cm 0.6-1.0 3913267820) LVIDS (test code = 3.70 cm 1631411829) FS (test code = 27 % 5633648542) EF(Teich) (test code = 52.60 % 9184322612) EF - 2D (test code = 52.60 % 43146911) MR max PG (test code = 123.90 mm[Hg] 0311748039) MR max marietta (test code = 556.50 cm/s 7520637967) Mr max [place] (test code = 556.5 m/s 6067639666) LAV(MOD-sp4) (test code 46.70 mL = 5125478955) LA Volume Index (BP) 29.2 mL/m2 (test code = 8753749934) LA volume (BP) (test 51.8 mL code = 2314682140) LAV(MOD-sp2) (test code 52.40 mL = 5626582545) Aortic valve mean 105.0 cm/s velocity (test code = 3820137532) Ao peak m[place] (test code = 160.0 cm/s 2164070011) Ao VTI (test code = 30.0 cm 1627629722) Ao max PG (test code = 10.20 mm[Hg] 9895682505) AV peak gradient (test mmHg code = 8580322895) AV mean gradient (test mmHg code = 2114728677) LVOT stroke volume (test 63.60 cm3 code = 4335111371) LVOT peak [place] (test code 108.3 cm/s = 7817548268) LVOT mn grad (test code mmHg = 3001786643) AV LVOT peak gradient mmHg (test code = 0212852794) LVOT peak VTI (test code 20.2 cm = 6018901764) AV area by cont VTI 2.1 cm2 (test code = 0624404436) AV area peak m[place] (test 2.1 cm2 code = 5438970503) LV V1 mean (test code = 66.80 cm/s 3326301720) AV valve area (test code 2.12 cm2 = 8056566240) TR Peak [place] (test code = 342.9 cm/s 7912512073) Triscuspid Valve mmHg Regurgitation Peak Gradient (test code = 3955560392) PV REGURGITATION PEAK mmHg GRADIENT (test code = 7475668616) PI dec slope (test code 438.00 cm/s2 = 5202433842) Pulmonic Regurgitant End 105.3 cm/s Max Velocity (test code = 6536470434) Inferior Vena Cava 2.33 cm Diameter (test code = 2590455301) MV Prop V (test code = 37.50 cm/s 1591179281) Radiology Study observation (narrative) (test code = 68753-3) ADD (test code = ADD) Addendum by Brenda Fuentes MD on 05/17/2021 3:16 PM 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 ?Left?Ventricle: Low normal systolic function with a [...] (73.9 kg) 1.81 sq meters 165/73 71 [facility] GLUCOSE (AUTOMATED)2021-05-17 17:54:17 Test Item Value Reference Range Interpretation Comments POCT GLU (test code = 3044237294) 134 mg/dL 70-110 H Lab Interpretation (test code = Abnormal 31929-8) [facility] GLUCOSE (AUTOMATED)2021-05-17 14:18:37 Test Item Value Reference Range Interpretation Comments POCT GLU (test code = 3112649089) 119 mg/dL 70-110 H Lab Interpretation (test code = Abnormal 36639-0) [facility] [id number] 11:21:13 Test Item Value Reference Range Interpretation Comments NT-proBNP (test code 544785 pg/mL See_Comment H [Autom ated = 7517861251) message] The system which generated this result transmitted reference range : <=125. The reference range was not used to interpret this result as normal/abnormal . BRANDI (test code = BRANDI) Biotin has been reported to cause a negative bias, interpret results relative to patient's use of biotin. Lab Interpretation Abnormal (test code = 75739-1) [facility] WITHOUT [id number] 11:09:22 Test Item Value Reference Range Interpretation Comments WBC (test code = 6690-2) See_Comment [A utomated message] The system [employer] generated this result transmit levi reference range : 4.30 - 11.10 10*3/?L. The reference range was not used to interpret this result as normal/abnormal . RBC (test code = 789-8) See_Comment L [Au tomated message] The system [employer] generated this result transmit levi reference range [...] See_Comment L [Au tomated message] The system [employer] generated this result transmit levi reference range : 166 - 358 10*3/?L. The reference range was not used to interpret this result as normal/abnormal . MPV (test code = 11.1 fL 9.5-12.9 91282-5) RDW-CV (test code = 14.5 % 12.0-15.5 788-0) RDW-SD (test code = 50.8 fL 39.0-49.9 H 14956-2) NRBC x10^3 (test code = <0.01 See_Comment [Au tomated message] 1655410008) The system [employer] h generated this result transmit levi reference range : 10*3/?L. The reference range was not used to interpret this result as normal/abnormal . NRBC/100 WBC (test code See_Comment [Au tomated message] = 5101595382) The system [employer] generated this result transmit levi reference range : 0.0 - 10.0 /100 WBC s. The reference r alba was not used to interpret this result as normal/abnormal . IPF % (test code = 0263474481) Lab Interpretation (test Abnormal code = 65050-6) [facility]2022-02-13 10:56:23 Test Item Value Reference Range Interpretation Comments MAGNESIUM (test code = 8993572058) 2.1 mg/dL 1.7-2.4 Lab Interpretation (test code = Normal 26949-6) [facility] METABOLIC PANEL (NA, K, CL, CO2, GLUCOSE, BUN, CREATININE, CA)2021-05-17 10:56:22 Test Item Value Reference Range Interpretation Comments NA (test code = 130 mmol/L 135-145 L 7000589670) K (test code = 4.6 mmol/L 3.5-5.0 7903527674) CL (test code = 96 mmol/L 98-108 L 9225449217) CO2 TOTAL (test code = 26 mmol/L 23-31 3416349405) AGAP (test code = 2-16 7860252886) BUN (test code = 42 mg/dL 7-23 H 6866897463) GLUCOSE (test code = 148 mg/dL 70-110 H 5743289216) CREATININE (test code = 5.84 mg/dL 0.50-1.04 H 1317370096) CALCIUM (test code = 7.9 mg/dL 8.6-10.6 L 3561034908) eGFR (test code = mL/min/1.73m2 5611730700) BRANDI (test code = BRANDI) Association of [...] tests). Lab Interpretation Abnormal (test code = 14575-3) [facility]2022-02-13 10:56:02 Test Item Value Reference Range Interpretation Comments PHOSPHORUS (test code = 0965792427) 5.8 mg/dL 2.5-5.0 H Lab Interpretation (test code = Abnormal 09166-3) [facility] GLUCOSE (AUTOMATED)2021-05-16 22:43:07 Test Item Value Reference Range Interpretation Comments POCT GLU (test code = 7837850528) 231 mg/dL 70-110 H Lab Interpretation (test code = Abnormal 14420-5) [facility] GLUCOSE (AUTOMATED)2021-05-16 17:43:53 Test Item Value Reference Range Interpretation Comments POCT GLU (test code = 9368476981) 154 mg/dL 70-110 H Lab Interpretation (test code = Abnormal 77082-8) [facility] GLUCOSE (AUTOMATED)2021-05-16 13:42:36 Test Item Value Reference Range Interpretation Comments POCT GLU (test code = 6948043013) 121 mg/dL 70-110 H Lab Interpretation (test code = Abnormal 70163-2) [facility] WITHOUT [id number] 09:48:31 Test Item Value Reference Range Interpretation Comments WBC (test code = 6690-2) See_Comment [A utomated message] The system [employer] generated this result transmit levi reference range : 4.30 - 11.10 10*3/?L. The reference range was not used to interpret this result as normal/abnormal . RBC (test code = 789-8) See_Comment L [Au tomated message] The system [employer] generated this result transmit levi reference range [...] See_Comment L [Au tomated message] The system [employer] generated this result transmit levi reference range : 166 - 358 10*3/?L. The reference range was not used to interpret this result as normal/abnormal . MPV (test code = 10.9 fL 9.5-12.9 53545-1) RDW-CV (test code = 15.0 % 12.0-15.5 788-0) RDW-SD (test code = 52.6 fL 39.0-49.9 H 76121-8) NRBC x10^3 (test code = <0.01 See_Comment [Au tomated message] 8715336281) The system [employer] generated this result transmit levi reference range : 10*3/?L. The reference range was not used to interpret this result as normal/abnormal . NRBC/100 WBC (test code See_Comment [Au tomated message] = 4529218173) The system [facility] generated this result transmit levi reference range : 0.0 - 10.0 /100 WBC s. The reference r alba was not used to interpret this result as normal/abnormal . IPF % (test code = 2525605354) Lab Interpretation (test Abnormal code = 99076-1) [facility] (Total Cholesterol, Triglycerides, HDL)2021-05-16 09:36:18 Test Item Value Reference Range Interpretation Comments CHOL (test code = 157 mg/dL 120-200 0657330699) HDL (test code = 26 mg/dL >50 L 2860970931) HDLC RATIO (test code = See_Comment H [Au tomated message] 0064629705) The system [employer] generated this result transmit levi reference range : <=4.5. The refe rence range was not u sed to interpret th is result as normal/abnormal . TRIG (test code = 146 mg/dL 30-170 8200599080) LDL CHOL (test code = 102 mg/dL See_Comment [Auto mated message] 80017-5) The system [employer] generated this result transmit levi reference range : <=160. The refe rence range was not u sed to interpret th is result as normal/abnormal . VLDL (test code = 29 mg/dL 5-60 7122859809) Lab Interpretation (test Abnormal code = 94680-5) [facility]villeGlycosylated Hemoglobin (A1C)2021-05-16 09:22:50 Test Item Value Reference Range Interpretation Comments HGB A1C (test code = 6.2 % 4.0-5.7 H 4548-4) BRANDI (test code = BRANDI) Reference RangesNormal: <5.7%Prediabetes: 5.7 - 6.4%Diabetes: > 6.5% Lab Interpretation (test Abnormal code = 18067-1) [facility]villeTroponin [id number] 09:19:18 Test Item Value Reference Interpretation Comments Range TROPONIN I (test 0.028 ng/mL See_Comment [Automated code = 6577706778) message] The system which generated this result [...] biotin. Lab Interpretation Normal (test code = 63016-9) [facility] Metabolic Panel (NA, K, CL, CO2, GLUCOSE, BUN, CREATININE, CA)2021-05-16 09:08:35 Test Item Value Reference Range Interpretation Comments NA (test code = 134 mmol/L 135-145 L 6925228167) K (test code = 4.3 mmol/L 3.5-5.0 7311435011) CL (test code = 98 mmol/L 98-108 4772013933) CO2 TOTAL (test code = 27 mmol/L 23-31 9466740479) AGAP (test code = 2-16 7203020258) BUN (test code = 28 mg/dL 7-23 H 5697867416) GLUCOSE (test code = 114 mg/dL 70-110 H 2190248891) CREATININE (test code = 4.79 mg/dL 0.50-1.04 H 8490650481) CALCIUM (test code = 8.2 mg/dL 8.6-10.6 L 2439694558) eGFR (test code = mL/min/1.73m2 0870170396) BRANDI (test code = BRANDI) Association of [...] tests). Lab Interpretation Abnormal (test code = 69950-3) [facility]villeMagnesium [id number] 09:08:35 Test Item Value Reference Range Interpretation Comments MAGNESIUM (test code = 6868013413) 2.2 mg/dL 1.7-2.4 Lab Interpretation (test code = Normal 38009-5) [facility]villeTroponin [id number] 03:08:26 Test Item Value Reference Interpretation Comments Range TROPONIN I (test 0.019 ng/mL See_Comment [Automated code = 8583868728) message] The system which generated this result [...] biotin. Lab Interpretation Normal (test code = 37660-0) [facility]villePhosphorus [id number] 02:56:02 Test Item Value Reference Range Interpretation Comments PHOSPHORUS (test code = 1890367247) 4.5 mg/dL 2.5-5.0 Lab Interpretation (test code = Normal 64703-9) [facility]2021-05-16 02:28:15 Test Item Value Reference Range Interpretation Comments POCT GLU (test code = 9717972403) 155 mg/dL 70-110 H Lab Interpretation (test code = Abnormal 00268-4) [facility] StephenvilleThyroid Stimulating Hormone (TSH)2021-05-16 01:56:53 Test Item Value Reference Range Interpretation Comments TSH (test code = See_Comment [Automated message] 8949156938) The system [employer] generated this result transmitted ref erence range: 0.45 - 4 .70 mIU/L. The refe rence range was not u sed to interpret this result as normal/abnor mal. Lab Interpretation (test Normal code = 15101-8) [facility]cos[facility] Hem[facility] (A1C)2021-05-16 01:17:48 Test Item Value Reference Range Interpretation Comments HGB A1C (test code = 6.3 % 4.0-5.7 H 4548-4) BRANDI (test code = BRANDI) Reference RangesNormal: <5.7%Prediabetes: 5.7 - 6.4%Diabetes: > 6.5% Lab Interpretation (test Abnormal code = 61459-0) [facility]villeN-TERMINAL BOA-[id number] 20:42:55 Test Item Value Reference Range Interpretation Comments NT-proBNP (test code 761711 pg/mL See_Comment H [Autom ated = 8075978981) message] The system which generated this result transmitted reference range : <=125. The reference range was not used to interpret this result as normal/abnormal . BRANDI (test code = BRANDI) Biotin has been reported to cause a negative bias, interpret results relative to patient's use of biotin. Lab Interpretation Abnormal (test code = 10285-9) [facility]villeTROPONIN [id number] 20:28:40 Test Item Value Reference Interpretation Comments Range TROPONIN I (test 0.012 ng/mL See_Comment [Automated code = 0660859448) message] The system which generated this result [...] biotin. Lab Interpretation Normal (test code = 34351-4) [facility]villeD-PUUTG8129-15-00 20:27:34 Test Item Value Reference Interpretation Comments Range D-DIMER (test code = See_Comment H [Autom ated 1305138999) message] The system which generated this result [...] diagnosis. Lab Interpretation Abnormal (test code = 93370-0) [facility]villeMAGNESIUM2022-02-11 20:17:56 Test Item Value Reference Range Interpretation Comments MAGNESIUM (test code = 8131175403) 1.9 mg/dL 1.7-2.4 Lab Interpretation (test code = Normal 42364-8) [facility]villeCOMP. METABOLIC PANEL (15266)2021-05-15 20:17:36 Test Item Value Reference Range Interpretation Comments NA (test code = 136 mmol/L 135-145 5546358110) K (test code = 4.2 mmol/L 3.5-5.0 0760394107) CL (test code = 99 mmol/L 98-108 7519134136) CO2 TOTAL (test code = 26 mmol/L 23-31 5666513327) AGAP (test code = 2-16 4680510233) BUN (test code = 24 mg/dL 7-23 H 9866188951) GLUCOSE (test code = 112 mg/dL 70-110 H 3417104382) CREATININE (test code = 3.82 mg/dL 0.50-1.04 H 1387036962) TOTAL BILI (test code = 1.0 mg/dL 0.1-1.4 7921771702) CALCIUM (test code = 8.5 mg/dL 8.6-10.6 L 0681066102) T PROTEIN (test code = 8.6 g/dL 6.3-8.2 H 1299547270) ALBUMIN (test code = 4.2 g/dL 3.5-5.0 6939721381) ALK PHOS (test code = 176 U/L 34-122 H 7618511308) ALTv (test code = 13 U/L 5-35 1742-6) AST(SGOT) (test code = 26 U/L 13-40 1510164685) eGFR (test code = mL/min/1.73m2 9853881087) BRANDI (test code = BRANDI) Association of [...] tests). Lab Interpretation Abnormal (test code = 77323-3) [facility]villeLIPASE2022-02-11 20:17:15 Test Item Value Reference Range Interpretation Comments LIPASE (test code = 5309677053) 125 U/L 0-220 Lab Interpretation (test code = Normal 77986-1) [facility]villePROTHROMBIN TIME / [id number] 20:02:29 Test Item Value Reference Range Interpretation [...] tions. Lab Interpretation (test Normal code = 86163-4) [facility]villeCBC WITH [id number] 19:52:47 Test Item Value Reference Range Interpretation Comments WBC (test code = See_Comment [Automated 0690-2) message] The sy stem which generated this result transmitted reference range : 4.30 - 11.10 10*3/?L. The reference range was not used to interpret this result as normal/abnormal . RBC (test code = See_Comment L [Automated 979-8) message] The sy stem which generated this [...] (test code = 52.6 fL 39.0-49.9 H 24076-5) RDW-CV (test code = 15.0 % 12.0-15.5 788-0) PLT (test code = See_Comment L [Automated 777-3) message] The sy stem which generated this result transmitted reference range : 166 - 358 10*3/ ?L. The reference r laba was not used to interpret this result as normal/abnormal . MPV (test code = 10.9 fL 9.5-12.9 70331-9) NRBC/100 WBC (test See_Comment [Automat ed code = 3988957282) message] The system which generated this result transmitted reference range : 0.0 - 10.0 /100 WBCs. The refer ence range was not u sed to interpret th is result as normal/abnormal . NRBC x10^3 (test code <0.01 See_Comment [Auto mated = 2584598121) message] The s ystem which generated this result transmitted reference range : 10*3/?L. The reference range was not used to interpret this result as normal/abnormal . GRAN MAT (NEUT) % 74.8 % (test code = 770-8) IMM GRAN % (test code 0.60 % = 6572328142) LYMPH % (test code = 12.4 % 736-9) MONO % (test code = 8.7 % 5905-5) EOS % (test code = 2.6 % 713-8) BASO % (test code = 0.9 % 706-2) GRAN MAT x10^3(ANC) 4.06 10*3/uL 1.88-7.09 (test code = 1899818325) IMM GRAN x10^3 (test 0.03 10*3/uL 0.00-0.06 code = 0521688799) LYMPH x10^3 (test code 0.67 10*3/uL 1.32-3.29 L = 731-0) MONO x10^3 (test code 0.47 10*3/uL 0.33-0.92 = 742-7) EOS x10^3 (test code = 0.14 10*3/uL 0.03-0.39 711-2) BASO x10^3 (test code 0.05 10*3/uL 0.01-0.07 = 704-7) Lab Interpretation Abnormal (test code = 15725-1) [facility]] in Serum or Ygsbsg0909-78-67 17:30:00 Test Item Value Reference Range Interpretation Comments Troponin I.cardiac 0.35 See_Comment [Automat ed message] The [Mass/volume] in Serum syste m which generated or Plasma (test code = this result transmitted Troponin I.cardiac reference range: <=0.045. [Mass/volume] in Serum The r eference range was or Plasma) not used to int erpret this result as normal/abnormal . [facility]ann[facility] lymphocyte dqwmz7752-41-11 11:37:00 Test Item Value Reference Range Interpretation Comments Absolute lymphocyte count (test code = 0.7 0.7-4.9 Absolute lymphocyte count) [facility]2019-02-18 11:37:00 Test Item Value Reference Range Interpretation Comments Basophil % (test code = 2.4 See_Comment [Au tomated message] The Basophil %) system which ge nerated this result tra nsmitted reference range : <=1.3. The reference r alba was not used to int erpret this result as normal/abnormal . [facility]annBlood anisocytosis barxkrlfp2624-64-62 11:37:00 Test Item Value Reference Range Interpretation Comments Blood anisocytosis detection (test code 2+ = Blood anisocytosis detection) [facility] Antonioannood erythrocytes count (number/volume)2019-02-18 11:37:00 Test Item Value Reference Range Interpretation Comments Blood erythrocytes count 3.34 3.86-4.86 (number/volume) (test code = Blood erythrocytes count (number/volume)) [facility] hematocrit (volume fraction)2019-02-18 11:37:00 Test Item Value Reference Range Interpretation Comments Blood hematocrit (volume fraction) 31.8 36.0-45.0 (test code = Blood hematocrit (volume fraction)) [facility]annBlood morphology interpretation tbvukwofi3668-66-13 11:37:00 Test Item Value Reference Range Interpretation Comments Blood morphology interpretation Noted narrative (test code = Blood morphology interpretation narrative) [facility] platelet mean eciouz3968-76-47 11:37:00 Test Item Value Reference Range Interpretation Comments Blood platelet mean volume (test code = 9.8 7.6-11.3 Blood platelet mean volume) [facility]annBlood poikilocytosis detection by light kxginhqfjy4882-26-60 11:37:00 Test Item Value Reference Range Interpretation Comments Blood poikilocytosis detection by light 1+ microscopy (test code = Blood poikilocytosis detection by light microscopy) [facility]annCalcium [Mass/volume] in Serum or Eksexh7586-30-34 11:37:00 Test Item Value Reference Range Interpretation [...] [Moles/volume] in Serum or Plasma) [facility]annChemistry bmmbyvvby6509-82-15 11:37:00 Test Item Value Reference Range Interpretation Comments Chemistry procedure (test code = 95.3 80-100 Chemistry procedure) [facility]annChloride [Moles/volume] in Serum or Zcuwhw4774-65-02 11:37:00 Test Item Value Reference Range Interpretation Comments Chloride [Moles/volume] in Serum or 98 98-107 Plasma (test code = Chloride [Moles/volume] in Serum or Plasma) [facility]annCreatinine [Mass/volume] in Serum or Cljzhq7749-55-56 11:37:00 Test Item Value Reference Range Interpretation Comments Creatinine [Mass/volume] in Serum or 7.35 0.55-1.3 Plasma (test code = Creatinine [Mass/volume] in Serum or Plasma) [facility]annGlucose [Mass/volume] in Serum or Qsiuuk9816-59-57 11:37:00 Test Item Value Reference Range Interpretation Comments Glucose [Mass/volume] in Serum or 110 74-106 Plasma (test code = Glucose [Mass/volume] in Serum or Plasma) [facility]annMagnesium [Mass/volume] in Serum or Pzciqw9829-16-15 11:37:00 Test Item Value Reference Range Interpretation Comments Magnesium [Mass/volume] in Serum or 2.4 1.8-2.4 Plasma (test code = Magnesium [Mass/volume] in Serum or Plasma) [facility]annPhosphate [Mass/volume] in Serum or Pjpila2691-67-35 11:37:00 Test Item Value Reference Range Interpretation Comments Phosphate [Mass/volume] in Serum or 4.7 2.5-4.9 Plasma (test code = Phosphate [Mass/volume] in Serum or Plasma) [facility]annPotassium [Moles/volume] in Serum or Pvieny8475-67-93 11:37:00 Test Item Value Reference Range Interpretation [...] [facility]annUrea nitrogen [Mass/volume] in Serum or Xelfwu7553-70-34 11:37:00 Test Item Value Reference Range Interpretation Comments Urea nitrogen [Mass/volume] in Serum or 74 7-18 Plasma (test code = Urea nitrogen [Mass/volume] in Serum or Plasma) [facility]annUrine dipstick testing at untwa-nx-exsk3704-11-17 11:37:00 Test Item Value Reference Range Interpretation Comments Urine dipstick testing at dowql-qn-cmyo 2.6 4.3-10.9 (test code = Urine dipstick testing at dmjrv-qw-ipkz) [facility]annAlanine aminotransferase [Enzymatic activity/volume] in Serum or Plasma by With P-5'-2019-02-18 00:35:00 Test Item Value Reference Range Interpretation Comments Alanine aminotransferase [Enzymatic 64 12-78 activity/volume] in Serum or Plasma by With P-5'- (test code = Alanine aminotransferase [Enzymatic activity/volume] in Serum or Plasma by With P-5'-) [facility]annAlbumin [Mass/volume] in Serum or Plasma by Bromocresol purple (BCP) dye binding ceir3720-59-25 00:35:00 Test Item Value Reference Range Interpretation Comments Albumin [Mass/volume] in Serum or 3.6 3.4-5.0 Plasma by Bromocresol purple (BCP) dye binding meth (test code = Albumin [Mass/volume] in Serum or Plasma by Bromocresol purple (BCP) dye binding meth) [facility]annAlkaline phosphatase [Enzymatic activity/volume] in Serum or Mppoyb4932-31-82 00:35:00 Test Item Value Reference Range Interpretation Comments Alkaline phosphatase [Enzymatic 236 45-117 activity/volume] in Serum or Plasma (test code = Alkaline phosphatase [Enzymatic activity/volume] in Serum or Plasma) [facility]annAspartate aminotransferase [Enzymatic activity/volume] in Serum or Plasma by With O-06421-21 00:35:00 Test Item Value Reference Range Interpretation Comments Aspartate aminotransferase [Enzymatic 48 15-37 activity/volume] in Serum or Plasma by With P-5 (test code = Aspartate aminotransferase [Enzymatic activity/volume] in Serum or Plasma by With P-5) [facility]annBilirubin.direct [Mass/volume] in Serum or Oufvsj8067-10-06 00:35:00 Test Item Value Reference Range Interpretation Comments Bilirubin.direct 0.2 See_Comment [Automated message] The [Mass/volume] in Serum syste m which generated or Plasma (test code = this result transmitted Bilirubin.direct reference r alba: <=0.2. [Mass/volume] in Serum The r eference range was or Plasma) not used to int erpret this result as emilee l/abnormal. [facility]annBilirubin.total [Mass/volume] in Serum or Jebaow7016-13-05 00:35:00 Test Item Value Reference Range Interpretation Comments Bilirubin.total [Mass/volume] in Serum 0.6 0.2-1.0 or Plasma (test code = Bilirubin.total [Mass/volume] in Serum or Plasma) [facility]annINR in Blood by Coagulation chdja1180-36-92 00:35:00 Test Item Value Reference Range Interpretation Comments INR in Blood by Coagulation assay 1.15 1 (test code = INR in Blood by Coagulation assay) [facility]annNatriuretic peptide.B prohormone N-Terminal [Mass/volume] in Serum or Vowzdt0025-63-36 00:35:00 Test Item Value Reference Range Interpretation Comments Natriuretic peptide.B prohormone > 776801 N-Terminal [Mass/volume] in Serum or Plasma (test code = Natriuretic peptide.B prohormone N-Terminal [Mass/volume] in Serum or Plasma) [facility]annProtein [Mass/volume] in Serum or Nrqonn1424-22-40 00:35:00 Test Item Value Reference Range Interpretation Comments Protein [Mass/volume] in Serum or 8.0 6.4-8.2 Plasma (test code = Protein [Mass/volume] in Serum or Plasma) [facility]annTroponin I.cardiac [Mass/volume] in Serum or Dtmjib6689-88-14 00:35:00 Test Item Value Reference Range Interpretation Comments Troponin I.cardiac 0.32 See_Comment [Automat ed message] The [Mass/volume] in Serum syste m which generated or Plasma (test code = this result transmitted Troponin I.cardiac reference range: <=0.045. [Mass/volume] in Serum The r eference range was or Plasma) not used to int erpret this result as normal/abnormal . [facility]annUrea nitrogen [Mass/volume] in Serum or Haqzjt2214-77-92 04:05:00 Test Item Value Reference Range Interpretation Comments Urea nitrogen [Mass/volume] in Serum or 52 7-18 Plasma (test code = Urea nitrogen [Mass/volume] in Serum or Plasma) [facility]annUrine dipstick testing at ehuwp-hc-tzcq8830-10-25 04:05:00 Test Item Value Reference Range Interpretation Comments Urine dipstick testing at myqao-mm-qhen 3.4 4.3-10.9 (test code = Urine dipstick testing at aqohy-zs-kpck) [facility]annAbsolute lymphocyte [id number] 04:05:00 Test Item Value Reference Range Interpretation Comments Absolute lymphocyte count (test code = 0.6 0.7-4.9 Absolute lymphocyte count) [facility]annBasophil %2019-01-26 04:05:00 Test Item Value Reference Range Interpretation Comments Basophil % (test code = 1.5 See_Comment [Au tomated message] The Basophil %) system which ge nerated this result tra nsmitted reference range : <=1.3. The reference r alba was not used to int erpret this result as normal/abnormal . [facility]annBlood erythrocytes count (number/volume)2019-01-26 04:05:00 Test Item Value Reference Range Interpretation Comments Blood erythrocytes count 3.64 3.86-4.86 (number/volume) (test code = Blood erythrocytes count (number/volume)) [facility]annBlood hematocrit (volume fraction)2019-01-26 04:05:00 Test Item Value Reference Range Interpretation Comments Blood hematocrit (volume fraction) 35.7 36.0-45.0 (test code = Blood hematocrit (volume fraction)) [facility]annBlood morphology interpretation trcrkpmky7857-62-57 04:05:00 Test Item Value Reference Range Interpretation Comments Blood morphology interpretation Not seen narrative (test code = Blood morphology interpretation narrative) [facility]annBlood platelet mean knscqb7284-34-58 04:05:00 Test Item Value Reference Range Interpretation Comments Blood platelet mean volume (test code = 9.2 7.6-11.3 Blood platelet mean volume) [facility]annCalcium [Mass/volume] in Serum or Qotwjm1653-64-06 04:05:00 Test Item Value Reference Range Interpretation [...] [Moles/volume] in Serum or Plasma) [facility]annChemistry uqvyyzgyj8643-26-86 04:05:00 Test Item Value Reference Range Interpretation Comments Chemistry procedure (test code = 98.1 80-100 Chemistry procedure) [facility]annChloride [Moles/volume] in Serum or Stxaue0448-97-32 04:05:00 Test Item Value Reference Range Interpretation Comments Chloride [Moles/volume] in Serum or 98 98-107 Plasma (test code = Chloride [Moles/volume] in Serum or Plasma) [facility]annCreatinine [Mass/volume] in Serum or Silukc5928-97-65 04:05:00 Test Item Value Reference Range Interpretation Comments Creatinine [Mass/volume] in Serum or 6.36 0.55-1.3 Plasma (test code = Creatinine [Mass/volume] in Serum or Plasma) [facility]annGlucose [Mass/volume] in Serum or Pemufg7301-23-43 04:05:00 Test Item Value Reference Range Interpretation Comments Glucose [Mass/volume] in Serum or 251 74-106 Plasma (test code = Glucose [Mass/volume] in Serum or Plasma) [facility]annPotassium [Moles/volume] in Serum or Ooliax6733-74-04 04:05:00 Test Item Value Reference Range Interpretation Comments Potassium [Moles/volume] in Serum or 4.7 3.5-5.1 Plasma (test code = Potassium [Moles/volume] in Serum or Plasma) [facility] AntonioannSerum or plasma sodium measurement (moles/volume)2019-01-26 04:05:00 Test Item Value Reference Range Interpretation Comments Serum or plasma sodium measurement 136 136-145 (moles/volume) (test code = Serum or plasma sodium measurement (moles/volume)) [facility] AntonioannBacterial culture w [id number] 01:55:00 Test Item Value Reference Range Interpretation Comments Bacterial culture w ID NORMAL UPPER (test code = Bacterial RESPIRATORY HARI culture w ID) GROWN. [facility] AntonioannLaboratory Xiixjpk6701-14-25 16:07:00 Test Item Value Reference Range Interpretation Comments Bedside Glucose (test code = Bedside 175 65-120 Glucose) [facility]Labor[facility] Icdsvnf5725-03-87 05:35:00 Test Item Value Reference Range Interpretation Comments Blood Morphology Blood Morphology Comment (test code = Comment Blood Morphology Comment) [facility]Labor[facility] Lvtxwfr3703-60-82 05:35:00 Test Item Value Reference Range Interpretation Comments Total Bilirubin (test code = Total 0.5 0.2-1.0 Bilirubin) [facility]annLabor[facility] Locqnqr1872-68-72 05:35:00 Test Item Value Reference Range Interpretation Comments Sodium Level (test code = Sodium Level) 137 136-145 [facility]2019-07-10 05:35:00 Test Item Value Reference Range Interpretation Comments Serum Total Protein (test code = Serum 7.5 6.4-8.2 Total Protein) [facility]2019-07-10 05:35:00 Test Item Value Reference Range Interpretation Comments Potassium Level (test code = Potassium 4.8 3.5-5.1 Level) [facility]2019-07-10 05:35:00 Test Item Value Reference Range Interpretation Comments Glucose Level (test code = Glucose 90 74-106 Level) [facility]2019-07-10 05:35:00 Test Item Value Reference Range Interpretation Comments Globulin (test code = Globulin) 4.3 2.3-3.5 [facility]2019-07-10 05:35:00 Test Item Value Reference Range Interpretation Comments Estimat Glomerular 7 See_Comment [Automat ed message] The Filtration Rate (test system which generated code = Estimat this result t ransmitted Glomerular Filtration refere nce range: >=90. Rate) The reference r alba was not used to int erpret this result as normal/abnormal . [facility]2019-07-10 05:35:00 Test Item Value Reference Range Interpretation Comments Creatinine (test code = Creatinine) 6.02 0.55-1.3 [facility]2019-07-10 05:35:00 Test Item Value Reference Range Interpretation Comments Chloride Level (test code = Chloride 102 98-107 Level) [facility]2019-07-10 05:35:00 Test Item Value Reference Range Interpretation Comments Carbon Dioxide Level (test code = 25 21-32 Carbon Dioxide Level) [facility]2019-07-10 05:35:00 Test Item Value Reference Range Interpretation Comments Calcium Level (test code = Calcium 8.1 8.5-10.1 Level) [facility]2019-07-10 05:35:00 Test Item Value Reference Range Interpretation Comments Blood Urea Nitrogen (test code = Blood 43 7-18 Urea Nitrogen) [facility]2019-07-10 05:35:00 Test Item Value Reference Range Interpretation Comments Aspartate Amino Transf (AST/SGOT) (test 36 15-37 code = Aspartate Amino Transf (AST/SGOT)) [facility]2019-07-10 05:35:00 Test Item Value Reference Range Interpretation Comments Alkaline Phosphatase (test code = 252 45-117 Alkaline Phosphatase) [facility]2019-07-10 05:35:00 Test Item Value Reference Range Interpretation Comments Albumin/Globulin Ratio (test code = 0.7 1 1.1-1.8 Albumin/Globulin Ratio) [facility]2019-07-10 05:35:00 Test Item Value Reference Range Interpretation Comments Albumin (test code = Albumin) 3.2 3.4-5.0 [facility]2019-07-10 05:35:00 Test Item Value Reference Range Interpretation Comments Alanine Aminotransferase (ALT/SGPT) 57 12-78 (test code = Alanine Aminotransferase (ALT/SGPT)) [facility]2019-07-10 05:35:00 Test Item Value Reference Range Interpretation Comments White Blood Count (test code = White 2.9 4.3-10.9 Blood Count) [facility]2019-07-10 05:35:00 Test Item Value Reference Range Interpretation Comments Red Cell Distribution Width (test code 17.2 12.1-15.2 = Red Cell Distribution Width) [facility]2019-07-10 05:35:00 Test Item Value Reference Range Interpretation Comments Red Blood Count (test code = Red Blood 3.49 3.86-4.86 Count) [facility]2019-07-10 05:35:00 Test Item Value Reference Range Interpretation Comments Platelet Count (test code = Platelet 116 152-406 Count) [facility]2019-07-10 05:35:00 Test Item Value Reference Range Interpretation Comments Neutrophils % (test code = Neutrophils 49.4 41.7-73.7 %) [facility]2019-07-10 05:35:00 Test Item Value Reference Range Interpretation Comments Monocytes % (test code = Monocytes %) 10.4 3.3-12.3 [facility]2019-07-10 05:35:00 Test Item Value Reference Range Interpretation Comments Mean Platelet Volume (test code = Mean 8.7 7.6-11.3 Platelet Volume) [facility]2019-07-10 05:35:00 Test Item Value Reference Range Interpretation Comments Mean Corpuscular Volume (test code = 98.2 80-100 Mean Corpuscular Volume) [facility]2019-07-10 05:35:00 Test Item Value Reference Range Interpretation Comments Mean Corpuscular Hemoglobin Concent 33.0 32.0-36.0 (test code = Mean Corpuscular Hemoglobin Concent) [facility]2019-07-10 05:35:00 Test Item Value Reference Range Interpretation Comments Mean Corpuscular Hemoglobin (test 32.4 pg 27.0-35.0 code = Mean Corpuscular Hemoglobin) [facility]2019-07-10 05:35:00 Test Item Value Reference Range Interpretation Comments Lymphocytes % (test code = Lymphocytes 30.3 15.3-44.8 %) [facility]2019-07-10 05:35:00 Test Item Value Reference Range Interpretation Comments Hemoglobin (test code = Hemoglobin) 11.3 12.0-15.0 [facility]2019-07-10 05:35:00 Test Item Value Reference Range Interpretation Comments Hematocrit (test code = Hematocrit) 34.3 36.0-45.0 [facility]2019-07-10 05:35:00 Test Item Value Reference Range Interpretation Comments Eosinophils % (test code 8.8 See_Comment [A utomated message] The = Eosinophils %) system ic h generated this result tra nsmitted reference range : <=4.4. The reference r alba was not used to int erpret this result as normal/abnormal . [facility]2019-07-10 05:35:00 Test Item Value Reference Range Interpretation Comments Basophils % (test code 1.1 See_Comment [Aut omated message] The = Basophils %) system which generated this result tra nsmitted reference range : <=1.3. The reference r alba was not used to int erpret this result as normal/abnormal . [facility]2019-07-10 05:35:00 Test Item Value Reference Range Interpretation Comments Absolute Neutrophil (test code = 1.4 1.8-8.0 Absolute Neutrophil) [facility]2019-07-10 05:35:00 Test Item Value Reference Range Interpretation Comments Absolute Monocytes (CBC) (test code = 0.3 0.1-1.3 Absolute Monocytes (CBC)) [facility]2019-07-10 05:35:00 Test Item Value Reference Range Interpretation Comments Absolute Lymphocytes (CBC) (test code = 0.9 0.7-4.9 Absolute Lymphocytes (CBC)) [facility]2019-07-10 05:35:00 Test Item Value Reference Range Interpretation Comments Absolute Eosinophils 0.3 See_Comment [Autom ated message] The (CBC) (test code = system wh ich generated Absolute Eosinophils this re sult transmitted (CBC)) reference range : <=0.5. The reference r alba was not used to int erpret this result as normal/abnormal . [facility]2019-07-10 05:35:00 Test Item Value Reference Range Interpretation Comments Absolute Basophils 0.0 See_Comment [Automat ed message] The (CBC) (test code = system wh ich generated Absolute Basophils this resu lt transmitted (CBC)) reference range : <=0.5. The reference r alba was not used to int erpret this result as normal/abnormal . [facility]2019-07-09 05:43:00 Test Item Value Reference Range Interpretation Comments Prothrombin Time (test code = 12.9 9.5-12.5 Prothrombin Time) [facility]2019-07-09 05:43:00 Test Item Value Reference Range Interpretation Comments INR International Normalized Ratio 1.10 1 (test code = INR International Normalized Ratio) [facility]2019-07-09 05:43:00 Test Item Value Reference Range Interpretation Comments Triglycerides Level (test code = 89 Triglycerides Level) [facility]2019-07-09 05:43:00 Test Item Value Reference Range Interpretation Comments Phosphorus Level (test code = 6.3 2.5-4.9 Phosphorus Level) [facility]2019-07-09 05:43:00 Test Item Value Reference Range Interpretation Comments Magnesium Level (test code = Magnesium 2.3 1.8-2.4 Level) [facility]2019-07-09 05:43:00 Test Item Value Reference Range Interpretation Comments LDL Cholesterol, Calculated (test code 47 1 = LDL Cholesterol, Calculated) [facility]2019-07-09 05:43:00 Test Item Value Reference Range Interpretation Comments HDL Cholesterol (test code = HDL 57 40-60 Cholesterol) [facility]2019-07-09 05:43:00 Test Item Value Reference Range Interpretation Comments Cholesterol/HDL Ratio (test code = 2.14 1 Cholesterol/HDL Ratio) [facility]2019-07-09 05:43:00 Test Item Value Reference Range Interpretation Comments Cholesterol Level (test code = 122 Cholesterol Level) [facility]2019-07-08 19:49:00 Test Item Value Reference Range Interpretation Comments Troponin I (test code = 0.59 See_Comment [Au tomated message] The Troponin I) system which ge nerated this result tra nsmitted reference range : <=0.045. The reference r alba was not used to int erpret this result as normal/abnormal . [facility]2019-07-08 12:50:00 Test Item Value Reference Range Interpretation Comments Hepatitis B Surface Hepatitis B Surface Antigen (test code = Antigen Hepatitis B Surface Antigen) [facility]2019-07-08 12:50:00 Test Item Value Reference Range Interpretation Comments Hepatitis B Surface Hepatitis B Surface Antibody (test code = Antibody Hepatitis B Surface Antibody) [facility]2019-07-08 12:50:00 Test Item Value Reference Range Interpretation Comments Hepatitis B Core Total Hepatitis B Core Total Antibody (test code = Antibody Hepatitis B Core Total Antibody) [facility]2019-07-08 12:50:00 Test Item Value Reference Range Interpretation Comments Hepatitis C Antibody Hepatitis C Antibody (test code = Hepatitis C Antibody) [facility]2019-07-08 12:50:00 Test Item Value Reference Range Interpretation Comments Hepatitis C Ab Signal/Cutoff Ratio 0.05 ratio (test code = Hepatitis C Ab Signal/Cutoff Ratio) [facility]2019-07-08 07:36:00 Test Item Value Reference Range Interpretation Comments Rapid Troponin I (test 0.66 See_Comment [Aut omated message] The code = Rapid Troponin system which generated I) this result tra nsmitted reference range : <=0.045. The reference r alba was not used to int erpret this result as normal/abnormal . [id number] 07:36:00 Test Item Value Reference Range Interpretation Comments WY-Zcc-G-Type Natriuretic Peptide (test 41060 code = GU-Syv-X-Type Natriuretic Peptide) [facility] [place] [place]
--- NOTE | 2021-11-23 12:57 | RAD REPORT ---
EXAM DESCRIPTION: Samuel Single View11/23/2021 12:51 pm CLINICAL HISTORY: Palpitations COMPARISON: November 14, 2021 FINDINGS: Moderate to large right pleural effusion with basilar atelectasis. Left lung appears clear Heart is mildly to moderately enlarged. Postsurgical changes involve the chest. Pacemaker leads in place IMPRESSION: Moderate to large right pleural effusion
[2021-11-23 13:59] LABS: Protime INR 1.16
[2021-11-23 14:17] LABS: SARS-CoV-2 Antigen Rapid Res Positive (Negative)
[2021-11-23 14:44] LABS: Absolute Lymphocytes (CBC) 0.8 K/uL (0.7-4.9); Hematocrit 30.6 % (36.0-45.0); Lymphocytes % 19.9 % (15.3-44.8); MCV 95.9 fL (80-100); MPV 7.7 fL (7.6-11.3); RBC Red Blood Cell Count 3.19 M/uL (3.86-4.86)
[2021-11-23 15:31] LABS: BUN Blood Urea Nitrogen 72 mg/dL (7-18); Bicarbonate 26 mmol/L (21-32); Glomerular Filtration Rate 6 ml/min (=/>90); Glucose Level 132 mg/dL (74-106); Magnesium 2.9 mg/dL (1.8-2.4); Potassium 4.7 mmol/L (3.5-5.1); Sodium Level 133 mmol/L (136-145); Troponin High Sensitivity 881.9 pg/mL (<58.9)
[2021-11-23 15:32] LABS: NT PRO-BNP > 175000 pg/mL (<125)
--- NOTE | 2021-11-23 15:39 | ER ---
Nurse's Notes [facility] Name: Qiana Valdez Age: 66 yrs Sex: Female : 1955 Arrival Date: 11/23/2021 Time: 12:15 Bed 26 Private MD: Diagnosis: Palpitations;Tachycardia, unspecified;Chest pain, unspecified;End stage renal disease Presentation: 11/23 12:15 Chief complaint: EMS states: toned out to pt home for heart palpitations. Pt reports ld1 feeling heart racing. COVID +. Coronavirus screen: Client presents with at least one sign or symptom that may indicate coronavirus-19. Standard/surgical mask placed on the client. Ebola Screen: No symptoms or risks identified at this time. Initial Sepsis Screen: Does the patient meet any 2 criteria? No. Patient's initial sepsis screen is negative. Does the patient have a suspected source of infection? No. Patient's initial sepsis screen is negative. Risk Assessment: Do you want to hurt yourself or someone else? Patient reports no desire to harm self or others. Onset of symptoms was November 23, 2021. 12:15 Method Of Arrival: EMS: [facility] ld1 12:15 Acuity: SIXTO 3 ld1 Triage Assessment: 12:17 General: Appears in no apparent distress. comfortable, Behavior is calm, cooperative, ld1 appropriate for age. Pain: Denies pain. EENT: No signs and/or symptoms were reported regarding the EENT system. Neuro: Level of Consciousness is awake, alert, obeys commands, Oriented to person, place, time, situation. Cardiovascular: Capillary refill < 3 seconds Patient's skin is warm and dry. Rhythm is atrial pacer with capture. Respiratory: Airway is patent Respiratory effort is even, unlabored. GI: Abdomen is flat, non-distended. : No signs and/or symptoms were reported regarding the genitourinary system. Derm: No signs and/or symptoms reported regarding the dermatologic system. Musculoskeletal: No signs and/or symptoms reported regarding the musculoskeletal system. Historical: - Allergies: 12:17 No Known Allergies; ld1 - PMHx: 12:17 Chronic ischemic heart disease; Diabetes - IDDM; DIALYSIS MWF; ESRD; GERD; High ld1 Cholesterol; hyperparathyroidism; Hypertension; IRON DEFICIENCY ANEMIA; Myocardial infarction; Pacemaker; - PSHx: 12:17 Coronary artery bypass graft; ld1 - Immunization history:: Adult Immunizations up to date, Client reports having NOT received the Covid vaccine. - Social history:: Smoking status: Patient denies any tobacco usage or history of. Patient/guardian denies using alcohol. - Family history:: not pertinent. - Hospitalizations: : No recent hospitalization is reported. Screenin:23 Abuse screen: Denies threats or abuse. Denies injuries from another. Nutritional eh3 screening: No deficits noted. Tuberculosis screening: No symptoms or risk factors identified. Fall Risk None identified. Assessment: 13:15 Reassessment: No changes from previously documented assessment. See triage assessment. eh3 Vital Signs: 12:15 BP 143 / 66; Pulse 70; Resp 18; Temp 98.1(O); Pulse Ox 95% on R/A; Weight 64.86 kg; ld1 Height 5 ft. 3 in. (160.02 cm); Pain 0/10; 12:15 BP 138 / 68; Pulse 66; Resp 16; Pulse Ox 95% on R/A; eh3 13:00 BP 161 / 79; Pulse 71; Resp 18; Pulse Ox 94% on R/A; eh3 14:00 BP 163 / 75; Pulse 70; Resp 18; Pulse Ox 94% on R/A; eh3 15:00 BP 164 / 79; Pulse 71; Resp 15; Pulse Ox 95% on R/A; eh3 16:00 BP 177 / 80; Pulse 71; Resp 19; Pulse Ox 92% on R/A; eh3 17:00 BP 169 / 77; Pulse 70; Resp 14; Pulse Ox 93% on R/A; eh3 18:00 BP 162 / 76; Pulse 70; Resp 15; Pulse Ox 94% on R/A; eh3 12:15 Body Mass Index 25.33 (64.86 kg, 160.02 cm) ld1 ED Course: 12:15 Patient arrived in ED. ld1 12:17 Triage completed. ld1 12:17 Arm band placed on right wrist. ld1 12:18 Adam Lau MD is Attending Physician. rn 12:36 Leslie Paredes RN is Primary Nurse. ld1 12:52 XRAY Chest (1 view) In Process Unspecified. EDMS 13:34 SARS-COV-2 Antigen Rapid Sent. ld1 13:34 Inserted saline lock: 22 gauge in left hand, using aseptic technique. Blood collected. ld1 13:49 Basic Metabolic Panel Sent. ld1 13:49 CBC with Diff Sent. ld1 13:49 Magnesium Sent. ld1 13:49 NT PRO-BNP Sent. ld1 13:49 PT-INR Sent. ld1 13:49 Troponin HS Sent. ld1 15:38 Doron Lau MD is Hospitalizing Provider. rn 16:59 Primary Nurse role handed off by Leslie Paredes RN 3 16:59 Kristine Saenz, SUNITA is Primary Nurse. 3 21:23 No provider procedures requiring assistance completed. Patient admitted, IV remains in eh3 place. 21:24 Patient has correct armband on for positive identification. Placed in gown. Bed in low eh3 position. Call light in reach. Side rails up X2. aboriginal ceremonial celebrant on. Pulse ox on. NIBP on. Door closed. Noise minimized. Warm blanket given. Administered Medications: 16:04 Drug: [place] (HYDROcodone-acetaminophen) 5 mg-325 mg 1 tabs Route: PO; 3 16:31 Follow up: Response: No adverse reaction; Marked relief of symptoms eh3 Medication: 21:24 VIS not applicable for this client. eh3 Outcome: 15:39 Decision to Hospitalize by Provider. rn 21:24 Admitted to Med/surg accompanied by tech, room 405, Report called to SUNITA Lyle eh3 21:24 Condition: stable 21:24 Instructed on the need for admit. 21:40 Patient left the ED. 3 Signatures: Dispatcher [employer] EDMS Adam Lau MD MD rn Dibbern, Lauren, RN RN ld1 Kristine Saenz RN RN 3 Corrections: (The following items were deleted from the chart) 18:55 18:52 Reassessment: No changes from previously documented assessment. See triage eh3 assessment eh3
--- NOTE | 2021-11-23 15:40 | EDPHYS ---
Physician Documentation [facility] Name: Qiana Valdez Age: 66 yrs Sex: Female : 1955 Arrival Date: 11/23/2021 Time: 12:15 Bed 26 Private MD: ED Physician Adam Lau HPI: 11/23 13:45 This 66 yrs old Female presents to ER via EMS with complaints of Palpitations. rn 13:45 The patient presents with a history of heart racing. Onset: The symptoms/episode rn began/occurred just prior to arrival. Duration: The patient or guardian reports multiple episodes, that are intermittent. Modifying factors: The symptoms are aggravated by nothing. The symptoms are alleviated by nothing. Associated signs and symptoms: Pertinent positives: chest pain, SOB, Pertinent negatives: fever, syncope. Severity of symptoms: At their worst the symptoms were moderate in the emergency department the symptoms have improved. The patient has experienced similar episodes in the past. The patient has been recently seen by a physician:. Historical: - Allergies: 12:17 No Known Allergies; ld1 - PMHx: 12:17 Chronic ischemic heart disease; Diabetes - IDDM; DIALYSIS MWF; ESRD; GERD; High ld1 Cholesterol; hyperparathyroidism; Hypertension; IRON DEFICIENCY ANEMIA; Myocardial infarction; Pacemaker; - PSHx: 12:17 Coronary artery bypass graft; ld1 - Immunization history:: Adult Immunizations up to date, Client reports having NOT received the Covid vaccine. - Social history:: Smoking status: Patient denies any tobacco usage or history of. Patient/guardian denies using alcohol. - Family history:: not pertinent. - Hospitalizations: : No recent hospitalization is reported. ROS: 13:45 Constitutional: Negative for fever, chills, and weight loss, Eyes: Negative for injury, rn pain, redness, and discharge, Neck: Negative for injury, pain, and swelling, Cardiovascular: + for palpitations and chest pain Respiratory: Negative for cough, wheezing, and pleuritic chest pain, Abdomen/GI: Negative for abdominal pain, nausea, vomiting, diarrhea, and constipation, MS/Extremity: Negative for injury and deformity, Skin: Negative for injury, rash, and discoloration, Neuro: Negative for headache, weakness, numbness, tingling, and seizure. Exam: 13:45 Constitutional: This is a well developed, well nourished patient who is awake, alert, rn appears anxious Head/Face: Normocephalic, atraumatic. Cardiovascular: Regular rate and rhythm. No pulse deficits. Respiratory: No increased work of breathing, no retractions or nasal flaring. Abdomen/GI: Soft, non-tender Skin: Warm, dry MS/ Extremity: Pulses equal, no cyanosis. Neuro: Awake and alert, GCS 15 14:42 ECG was reviewed by the Attending Physician. rn Vital Signs: 12:15 BP 143 / 66; Pulse 70; Resp 18; Temp 98.1(O); Pulse Ox 95% on R/A; Weight 64.86 kg; ld1 Height 5 ft. 3 in. (160.02 cm); Pain 0/10; 12:15 BP 138 / 68; Pulse 66; Resp 16; Pulse Ox 95% on R/A; eh3 13:00 BP 161 / 79; Pulse 71; Resp 18; Pulse Ox 94% on R/A; eh3 14:00 BP 163 / 75; Pulse 70; Resp 18; Pulse Ox 94% on R/A; eh3 15:00 BP 164 / 79; Pulse 71; Resp 15; Pulse Ox 95% on R/A; eh3 16:00 BP 177 / 80; Pulse 71; Resp 19; Pulse Ox 92% on R/A; eh3 17:00 BP 169 / 77; Pulse 70; Resp 14; Pulse Ox 93% on R/A; eh3 18:00 BP 162 / 76; Pulse 70; Resp 15; Pulse Ox 94% on R/A; eh3 12:15 Body Mass Index 25.33 (64.86 kg, 160.02 cm) ld1 MDM: 12:18 Patient medically screened. rn 15:33 Data reviewed: vital signs, nurses notes. rn 15:36 Counseling: I had a detailed discussion with the patient and/or guardian regarding: the rn historical points, exam findings, and any diagnostic results supporting the discharge/admit diagnosis, lab results, radiology results, the need for further work-up and treatment in the hospital. Response to treatment: the patient's symptoms have markedly improved after treatment, and as a result, I will admit patient. Admission orders: after a detailed discussion of the patient's condition and case, the admit orders are written by me. ED course: Pt with palpitations, elevated trop, ecg by EMS shows HR 158, regular, does not appear to be sinus. Will admit to Dr. Lau for further care and cardiology consultation. 11/23 12:27 Order name: Basic Metabolic Panel; Complete Time: 15:34 rn 11/23 12:27 Order name: CBC with Diff; Complete Time: 15:25 rn 11/23 12:27 Order name: Magnesium; Complete Time: 15:34 rn 11/23 12:27 Order name: NT PRO-BNP; Complete Time: 15:34 rn 11/23 12:27 Order name: PT-INR; Complete Time: 14:18 rn 11/23 12:27 Order name: Troponin HS; Complete Time: 15:34 rn 11/23 12:27 Order name: XRAY Chest (1 view); Complete Time: 13:05 rn 11/23 12:27 Order name: EKG; Complete Time: 12:27 rn 11/23 12:27 Order name: Cardiac monitoring; Complete Time: 12:51 rn 11/23 12:27 Order name: EKG - Nurse/Tech; Complete Time: 12:51 rn 11/23 12:27 Order name: IV Saline Lock; Complete Time: 13:34 rn 11/23 12:27 Order name: Labs collected and sent; Complete Time: 13:34 rn 11/23 12:27 Order name: SARS-COV-2 Antigen Rapid; Complete Time: 14:18 rn 11/23 12:27 Order name: O2 Per Protocol; Complete Time: 12:51 rn 11/23 12:27 Order name: O2 Sat Monitoring; Complete Time: 12:51 rn 11/23 14:06 Order name: Labs - recollect needed: recollect lavender and green; Complete Time: 14:32 ss EC:42 Rate is 71 beats/min. Rhythm is regular. QRS [place] is Normal. ID interval is normal. QRS rn interval is normal. QT interval is prolonged. No Q waves. T waves are Inverted in leads I, II, III, aVL, aVF, V3, V4, V5, V6. No ST changes noted. Clinical impression: NSR w/ Non-specific ST/T Changes. Interpreted by me. Reviewed by me. Administered Medications: 16:04 Drug: [place] (HYDROcodone-acetaminophen) 5 mg-325 mg 1 tabs Route: PO; eh3 16:31 Follow up: Response: No adverse reaction; Marked relief of symptoms eh3 Disposition Summary: 11/23/21 15:39 Hospitalization Ordered Hospitalization Status: Observation rn Provider: Doron Lau rn Location: Telemetry/MedSurg (observation) rn Condition: Stable rn Problem: new rn Symptoms: have improved rn Bed/Room Type: Standard rn Room Assignment: 405(11/23/21 20:20) cg Diagnosis - Palpitations rn - Tachycardia, unspecified rn - Chest pain, unspecified rn - End stage renal disease rn Forms: - Medication Reconciliation Form rn - SBAR form rn Signatures: Dispatcher [employer] EDAdam Diaz MD MD rn Smirch, Shelby, RN RN Brianna Angela RN RN Leslie Toledo RN RN ld1 Kristine Saenz RN RN eh3 Corrections: (The following items were deleted from the chart) 20:20 15:39 rn cg
[2021-11-23] MEDS ORDERED: HYDROCODONE/APAP 5/325 MG TAB ONE (16:09)
--- NOTE | 2021-11-23 19:54 | P.HP ---
Certification for Inpatient Patient admitted to: Observation With expected LOS: <2 Midnights Patient will require the following post-hospital care: None Practitioner: I am a practitioner with admitting privileges, knowledge of patient current condition, hospital course, and medical plan of care. Services: Services provided to patient in accordance with Admission requirements found in Title 42 Section 412.3 of the Code of Federal Regulations Patient History Date of Service: 11/23/21 Reason for admission: Palpitations History of Present Illness: Patient is a 66-year-old female with history of ESRD on HD MWF, [id number] type 2 diabetes, CAD status post CABG with recent stents and pacemaker placement, hypertension, and hyperlipidemia who presented to the ED via EMS with complaints of heart palpitations and shortness of breath. She states that she has experienced palpitations in the past, but they have typically resolved within 30 seconds. She reports the episode this morning lasted for a few minutes and had a similar occurrence about 48 hours ago. EMS did capture an episode of her palpitations on EKG exhibiting sinus tach with rate of 158. Her labs in the ED were significant Cr 7, PT 12, troponin high sensitivity 881, BNP > 175,000- all similar to previous admissions. CXR showed moderate to large right pleural effusion. She is also COVID-19+ but incidentally tested positive 1.5 weeks ago during prior admission. She is asymptomatic at this time. Patient with extensive cardiac work ups recently- including cardiac cath, nuclear stress test, and echocardiogram 1 month ago. Results below. Cardiac Cath: Severe [place] coronary artery disease and Patent grafts. Echo: mildly depressed left ventricular ejection fraction 45 to 50% with mild global hypokinesis and moderate diastolic dysfunction, pulmonary hypertension. Nuclear stress test: moderate area of stress ischemic change in the anterior wall involving the left ventricular base. No other areas of stress ischemia or scarring identified. End-diastolic volume was 116 mL with ejection fraction of 56%. These values are both improvements from the 152 mL EDV and 43% EF on the 2020 study. Cardiology has recommended aggressive medical management. Patient reports compliance with medication. Upon my assessment, patient reports that her symptoms have resolved and she does not currently have any complaints. Will admit for further evaluation and management. Allergies No Known Allergies Allergy (Verified 03/09/21 23:52) Home medications list reviewed: Yes Home Medications: Aspirin [Ecotrin 81 MG] 81 mg PO DAILY 10/13/21 Atorvastatin Calcium [Lipitor] 40 mg PO BEDTIME 10/13/21 Carvedilol [Coreg] 12.5 mg PO BID 10/13/21 Hydralazine [Apresoline*] 50 mg PO DAILY 10/13/21 Isosorbide Mononitrate [Isosorbide Mononitrate ER] 30 mg PO DAILY #30 tab.er.24h 10/13/21 Mirtazapine 15 mg PO BEDTIME 10/13/21 NIFEdipine [Procardia*] 10 mg PO TID 10/13/21 Na Bicarb Tab [Sodium Bicarb 325 MG Tab*] 1,300 mg PO BID #120 tab 10/13/21 Trazodone [Desyrel*] 50 mg PO BEDTIME 10/13/21 levETIRAcetam [Keppra*] 500 mg PO BEDTIME 10/13/21 Clopidogrel Bisulfate [Plavix*] 75 mg PO DAILY #30 tablet 10/16/21 Docusate [Colace Cap] 100 mg PO DAILY #30 cap 11/15/21 Hydrocodone 5/APAP 325 [[place] 5/325] 1 tab PO Q6H PRN #30 tab 11/15/21 predniSONE [Prednisone*] 20 mg PO BID #11 tab 11/15/21 - Past Medical/Surgical History Diabetic: Yes -: Hypertension -: Type 2 Diabetes Mellitus, Non-Insulin Dependent -: ESRD - MWF -: CAD with prior stent S/P CABG -: Hyperlipidemia -: GERD -: Anemia of chronic disease with iron deficiency -: Hyperparathyroidism -: Triple bypass 2016 -: Pacemaker -: Tubal ligation -: Fistula aneursym reconstruction 4 times -: Bilateral cataract surgery Psychosocial/ Personal History: Lives at home with daughter - Family History Mother -: Heart disease, Diabetes Father -: Heart disease, Diabetes - Social History Smoking Status: Never smoker Alcohol use: No CD- Drugs: No Caffeine use: Yes Place of Residence: Home Review of Systems Cardiovascular: Palpitations Physical Examination - Physical Exam General: Alert, In no apparent distress HEENT: Atraumatic, PERRLA, EOMI, Sclerae nonicteric Neck: Supple, 2+ carotid pulse no bruit, No LAD, Without JVD or thyroid abnormality Respiratory: Clear to auscultation bilaterally, Normal air movement Cardiovascular: Regular rate/rhythm, Normal S1 S2 Gastrointestinal: Normal bowel sounds, No tenderness Musculoskeletal: No tenderness Integumentary: No rashes Neurological: Normal speech, Normal strength at 5/5 x4 extr, Normal tone, Normal affect - Studies Laboratory Data (last 24 hrs) 11/23/21 14:31: WBC 3.90 L D, Hgb 10.1 L, Hct 30.6 L, Plt Count 122 L 11/23/21 14:31: Sodium 133 L, Potassium 4.7, BUN 72 H, Creatinine 7.02 H* D, Glucose 132 H, Magnesium 2.9 H 11/23/21 13:30: PT 12.8 H, INR 1.16 Assessment and Plan - Problems (Diagnosis) (1) Palpitations Current Visit: Yes Status: Acute (2) Elevated troponin Current Visit: Yes Status: Acute (3) End-stage renal disease on hemodialysis Current Visit: Yes Status: Chronic (4) Type 2 diabetes mellitus Current Visit: Yes Status: Chronic Qualifiers: Diabetes mellitus ferry terminal agent insulin use: without custodial use Diabetes mellitus complication status: without complication Qualified Code(s): E11.9 - Type 2 diabetes mellitus without complications (5) Hypertension Current Visit: Yes Status: Chronic Qualifiers: Hypertension type: primary hypertension Qualified Code(s): I10 - Essential (primary) hypertension (6) CAD (coronary artery disease) Current Visit: Yes Status: Acute Qualifiers: Coronary Disease-Associated Artery/Lesion type: bypass graft [place] vs. transplanted heart: [place] heart Associated angina: with unspecified form of angina Qualified Code(s): I25.709 - Atherosclerosis of coronary artery bypass graft(s), unspecified, with unspecified angina pectoris (7) COVID-19 Current Visit: Yes Status: Acute - Plan -Patient with similar presentations and subsequent admissions, positive stress test followed by heart catheterization with stent placement. Cardiology recommending aggressive medical management. Patient reports she has been compliant with her aspirin and Plavix. -Trend troponin and monitor on telemetry. Troponin has been elevated similarly during prior admissions. ESRD with decreased renal clearance likely contributing as well as COVID-19. Cardiology consult in place. -Echo 1 month ago showing mildly depressed left ventricular ejection fraction 45 to 50% with mild global hypokinesis and moderate diastolic dysfunction, pulmonary hypertension. -Nuclear stress test 1 month ago showing moderate area of stress ischemic change in the anterior wall involving the left ventricular base. No other areas of stress ischemia or scarring identified. End-diastolic volume was 116 mL with ejection fraction of 56%. These values are both improvements from the 152 mL EDV and 43% EF on the 2020 study. -Nephrology consult in place for ESRD and HD. Electrolytes stable. -ACHS Accu-Cheks, sliding scale insulin. -Droplet precautions -Will order thyroid panel. -Monitor and replete electrolytes per protocol -Reconcile and continue home medications -Heparin for VTE prophylaxis -Full code Discharge Plan: Home Plan to discharge in: 24 Hours - Advance Directives Does patient have a Living Will: No Does patient have a Durable POA for Healthcare: No - Code Status/Comfort Care Code Status Assessed: Yes (Full) Critical Care: No Time Spent Managing Pts Care (In Minutes): 50
[2021-11-23] MEDS ORDERED: lisinopriL 20 MG TAB ONE (20:06)
[2021-11-23] MEDS: INSULIN -REGULAR HUMAN 50 UNIT/0.5 ML ML SQ SCH (22:00)
[2021-11-23] MEDS ORDERED: ONDANSETRON 4 MG/2 ML VIAL IV PRN (22:00)
[2021-11-23] MEDS ORDERED: ACETAMINOPHEN 500 MG TAB PO PRN (22:00)
[2021-11-23] MEDS: HYDROCODONE/APAP 5/325 MG TAB PO PRN (23:20)
[2021-11-23 23:27] LABS: CKMB Creatine Kinase MB 1.7 ng/mL (1.0-3.6)
[2021-11-23 23:47] LABS: Troponin High Sensitivity 1064.2 pg/mL (<58.9)
[2021-11-24] MEDS: HEPARIN 5000 UNIT/ML 1 ML VIAL SQ SCH ×3 (01:52→17:00)
[2021-11-24 03:57] LABS: Absolute Lymphocytes (CBC) 0.8 K/uL (0.7-4.9); Hematocrit 27.3 % (36.0-45.0); Lymphocytes % 27.1 % (15.3-44.8); MCV 95.8 fL (80-100); MPV 8.1 fL (7.6-11.3); RBC Red Blood Cell Count 2.85 M/uL (3.86-4.86)
[2021-11-24 04:40] LABS: Albumin 2.8 g/dL (3.4-5.0); Bilirubin Total 0.5 mg/dL (0.2-1.0); Magnesium 2.9 mg/dL (1.8-2.4); Phosphorus 8.2 mg/dL (2.5-4.9); Potassium 4.8 mmol/L (3.5-5.1); Thyroid Stimulating Hormone 1.8 uIU/mL (0.360-3.740)
[2021-11-24] MEDS: INSULIN -REGULAR HUMAN 50 UNIT/0.5 ML ML SQ SCH ×4 (07:30→21:00)
[2021-11-24] MEDS ORDERED: ASPIRIN EC 81 MG TAB PO SCH (09:00)
[2021-11-24] MEDS: HYDROCODONE/APAP 5/325 MG TAB PO PRN ×2 (11:14→18:16)
--- NOTE | 2021-11-24 11:18 | CON ---
Date of Consultation: 11/24/2021 Reason For Consultation: Palpitation and elevated troponin. History Of Present Illness: Ms. Valdez is a 66-year-old [place] woman, very well known to us f rom previous office visits and admission. She has end-stage renal disease, on hemodialysis. She has a history of CABG, pacemaker, congestive heart failure with ejection fraction of 45% to 50%, severe pulmonary hypertension. She has hypertension, diabetes, gastroesophageal reflux disease, and dyslipi demia. Heart catheterization that was done last week showed patent graft with occluded nikolai vessel s. She had a graft to the LAD, OM, and RCA. She came in with palpitation. She was COVID positive, large pleural effusion on chest x-ray. Troponin is 881. BNP is 175,000. No chest pain reported. Past Medical History: As stated above. Allergies: NONE. Review of Systems: Negative. Social History: Negative. Family History: Noncontributory. Medications: At home include aspirin, Lipitor, Coreg, Plavix, hydralazine, Imdur, Procardia, Keppra, and prednisone. Physical Examination: Vital Signs: Stable, afebrile, sinus rhythm, paced rhythm. HEENT: Negative. Neck: Supple with no bruit. Chest: Clear on the left side. On the right side, there were decreased breath sounds. Cardiac: Revealed a paced rhythm with no murmurs, gallops, or rubs. Abdomen: Benign. Extremities: Revealed no clubbing, cyanosis, or edema. Diagnostic Data: Listed earlier. Her creatinine is 7.302. Hemoglobin is 9. Troponin 881. Paced r hythm on EKG. Chest x-ray showed large pleural effusion. Impression And Plan: 1.Palpitation, possibly atrial fibrillation, although none detected, could be pacemaker-induced tach ycardia. She is in paced rhythm right now that may be a cause her troponin to be elevated along with COVID and renal failure and the anemia. This is not an acute coronary syndrome. She just recently had a catheterization showing patent graft. I would increase her carvedilol dose. I would schedule her for an outpatient event monitor, which I will take care of. Her pacemaker was checked recently, but we will recheck it again in the office. 2.Pleural effusion. Consider Pulmonology consult for drainage of an effusion. 3.COVID positive. 4.Renal failure, on hemodialysis. 5.Anemia. 6.Status post pacemaker. 7.Status post coronary artery bypass graft, recent graft okayed by catheterization. 8.Chronic systolic congestive heart failure. 9.Severe pulmonary hypertension. 10.Hypertension. 11.Diabetes. 12.Gastroesophageal reflux disease. 13.Dyslipidemia. As stated earlier, elevated troponin and BNP are secondary to COVID and renal fail ure and anemia. She needs to increase her Coreg, get an outpatient event monitor, Pulmonary consulta tion, pacemaker check as an outpatient, continue present regimen otherwise. Can go home whenever it is okay with Dr. Lau. DENG/EVAN Voice ID: [id number] Report ID: [id number]
--- NOTE | 2021-11-24 11:58 | RAD REPORT ---
EXAM DESCRIPTION: US - Thoracentesis w/ US Guide - 11/24/2021 10:57 am CLINICAL HISTORY: Pleural effusion. Large right pleural effusion COMPARISON: No comparisons FINDINGS: Preoperative diagnosis: Right pleural effusion Post operative diagnosis: Same Conscious Sedation: None. Estimated blood loss: Minimal Specimens:A small volume of fluid was sent for requested lab studies. The patient was placed in the upright recumbent position and the right chest was prepped and draped i n the usual sterile fashion. 1% Lidocaine was infiltrated into the soft tissues for local anesthesia . Under sonographic guidance, a thoracentesis needle and 6 [place] catheter was advanced into the rig ht pleural space. Approximately 1200 mL yellow fluid was aspirated. Samples were sent to pathology fo r requested analysis. The patient tolerated the procedure without immediate complication and transfer red to the floor in stable condition. IMPRESSION: Successful ultrasound-guided thoracentesis as detailed.
[2021-11-24] MEDS: HYDRALAZINE HCL 20 MG/ML VIAL IV PRN ×2 (12:01→17:12)
--- NOTE | 2021-11-24 13:51 | EKG ---
Test Date: 2021-11-23 Test Time: 12:51:06 Cell Efficiency Supervisor: DIXIE MEASUREMENT RESULTS: Intervals: Rate: 71 VT: 146 QRSD: 102 QT: 460 QTc: 499 [place]: P: 71 VT: 146 QRS: 46 T: 246 INTERPRETIVE STATEMENTS: Normal sinus rhythm Incomplete right bundle branch block ST & T wave abnormality, consider inferior ischemia ST & T wave abnormality, consider anterolateral ischemia Prolonged QT Abnormal ECG Compared to ECG 11/14/2021 04:20:13 No significant changes Electronically Signed On 11-24-21 13:49:12 CDT by Bradley Santamaria
[2021-11-24] MEDS ORDERED: EPOETIN ALFA 10,000 UNIT/ML VIAL IV SCH (14:30)
--- NOTE | 2021-11-24 14:39 | P.PN ---
Subjective Date of Service: 11/24/21 Chief Complaint: Palpitations Patient denies any chest pain. She is complaining of shortness of breath. Physical Examination - Vital Signs Temperature: 96.7 F Blood Pressure: 204/94 Pulse: 73 Respirations: 20 Pulse Ox (%): 98 - Studies Laboratory Data (last 24 hrs) 11/23/21 14:31: WBC 3.90 L D, Hgb 10.1 L, Hct 30.6 L, Plt Count 122 L 11/23/21 14:31: Sodium 133 L, Potassium 4.7, BUN 72 H, Creatinine 7.02 H* D, Glucose 132 H, Magnesium 2.9 H Assessment And Plan - Current Problems (Diagnosis) (1) Pleural effusion Current Visit: Yes Status: Acute (2) Elevated troponin Current Visit: Yes Status: Acute (3) End-stage renal disease on hemodialysis Current Visit: Yes Status: Chronic (4) Hypertension Current Visit: Yes Status: Chronic Qualifiers: Hypertension type: primary hypertension Qualified Code(s): I10 - Essential (primary) hypertension (5) Type 2 diabetes mellitus Current Visit: Yes Status: Chronic Qualifiers: Diabetes mellitus alf insulin use: without alf use Diabetes mellitus complication status: without complication Qualified Code(s): E11.9 - Type 2 diabetes mellitus without complications (6) COVID-19 Current Visit: Yes Status: Acute - Plan Physical Exam General: Alert, In no apparent distress HEENT: Atraumatic, PERRLA, EOMI, Sclerae nonicteric Neck: Supple, 2+ carotid pulse no bruit, No LAD, Without JVD or thyroid abnormality Respiratory: Diminished breath sounds on the right, no crackles. Cardiovascular: Regular rate/rhythm, Normal S1 S2 Gastrointestinal: Normal bowel sounds, No tenderness Musculoskeletal: No tenderness Integumentary: No rashes Neurological: Normal speech, Normal strength at 5/5 x4 extr, Normal affect. Plan: Cardiology input appreciated. Status post thoracentesis and about 1.2 L of ashley-colored pleural fluid drained. No evidence of infection. No lung mass. Pleural fluid sent for cytology. Patient tested positive for COVID-19. Currently on room air and not hypoxic. Patient plan for hemodialysis today. Continue home antihypertensives. History of CABG. had a recent cardiac catheterization last week which showed occlusion of [place] vessels. Cardiology recommended medical management. Patient needs aggressive blood pressure control. Titrate beta-blockers and other antihypertensives.
[2021-11-24] MEDS: SEVELAMER CARBONATE 800 MG TABLET PO SCH (17:09)
[2021-11-24] MEDS: NIFEdipine 10 MG CAP PO SCH ×2 (17:17→21:24)
--- NOTE | 2021-11-24 17:57 | CON ---
Date of Consultation: 11/24/2021 Reason For Consultation: Elevated BUN and creatinine, fluid management, over volume. 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 complaining from palpitation and shortness of breath, found to have pleural effusion. e patient undergone thoracocentesis and also her workup showed positive for COVID. For that reason, the patient was admitted to the hospital. The patient was evaluated by Cardiology, suspected elevati on in cardiac enzymes secondary to COVID and renal failure. The patient is still complaining from pa in on her chest with oozing serosanguinous bloody fluid from the thoracocentesis site. Past Medical History: Includes; 1.Hypertension. 2.Diabetes complicated with neuropathy and nephropathy. 3.End-stage renal disease on hemodialysis Tuesday, Tuesday, Tuesday. 4.CAD, status post CABG. 5.Endocarditis. 6.Cardiac arrhythmia, status post pacemaker. 7.Renal artery stenosis, status post angioplasty. Past Surgical History: Includes; 1.CABG. 2.Pacemaker insertion. 3.AV fistula creation. 4.Cataract. Family History: Positive for diabetes and CAD. Social History: Denied smoking, denied drinking, denied drug abuse. Review of Systems: Head and Neck: No red eye. No ear pain. GI: No nausea. No vomiting. : No polyuria. No dysuria. No hematuria. 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 Respiratory: Has shortness of breath. Cardiovascular: Has palpitation. Has chest tightness. Endocrine: No polydipsia. Skin: No rash. Neuro: Has neuropathy. Musculoskeletal: No joint pain. Physical Examination: Vital Signs: When I saw the patient; blood pressure 190/87, pulse of 70, afebrile. Chest: Decreased entry on the right base. Heart: S1, S2. Systolic murmur. Abdomen: Soft, nontender. Extremity: Trace edema. Neurologic: Alert. No focality. Laboratory Data: Chest x-ray, right pleural effusion. WBC 3, H and H 9/27.3. Sodium 134, potassium 4.3, bicarb 26, BUN 81, creatinine 7.5, calcium 8.3, phosphorus 8.2, magnesium 2.9. Albumin 2.8. Current Medications: The patient on include; 1.Aspirin. 2.Tylenol. 3.Insulin. Home Medications: Include nifedipine, prednisone, Keppra, trazodone, isosorbide, Plavix, carvedilol, and aspirin. Assessment And Plan: 1.End-stage renal disease with over volume. I am going to do dialysis today. We will challenge the patient. Then, we will try to do another session of dialysis tomorrow to back on her schedule and a lso to achieve better volume control and we will continue to monitor the patient. 2.Hypertension, not controlled. We will disease. We will resume home blood pressure medications an d we will try to establish better volume control with repeated ultrafiltration. 3.Anemia of chronic kidney disease. Continue MELA. 4.Pleural effusion in the presence of COVID. We will follow up lab. Follow up with Pulmonary. 5.Secondary hyperparathyroidism. We will resume Keppra. 6.Acidosis, discontinue bicarb, going to be corrected with dialysis. 7.Shortness of breath, multifactorial. I am going to challenge the patient. We will follow up with Cardiology. 8.Endocarditis. We will resume her on antibiotic. 9.Diabetes as by primary. LISETH/EVAN Voice ID: [id number] Report ID: [id number]
[2021-11-24] MEDS: carvediloL 12.5 MG TAB PO SCH (21:23)
[2021-11-24] MEDS: ATORVASTATIN 40 MG TAB PO SCH (21:24)
[2021-11-24] MEDS: levETIRAcetam 500 MG TAB PO SCH (21:24)
[2021-11-24] MEDS: TRAZODONE 50 MG TABLET PO SCH (21:25)
[2021-11-24] MEDS: MIRTAZAPINE 15 MG TAB PO SCH (21:25)
[2021-11-25 00:14] VITALS: BMI 24.2
[2021-11-25] MEDS: HYDROCODONE/APAP 5/325 MG TAB PO PRN (01:13)
[2021-11-25] MEDS: HEPARIN 5000 UNIT/ML 1 ML VIAL SQ SCH ×3 (01:17→17:31)
[2021-11-25 04:05] LABS: Albumin 2.7 g/dL (3.4-5.0); Phosphorus 5.4 mg/dL (2.5-4.9); Potassium 4.3 mmol/L (3.5-5.1)
[2021-11-25] MEDS: INSULIN -REGULAR HUMAN 50 UNIT/0.5 ML ML SQ SCH ×4 (07:30→21:00)
[2021-11-25] MEDS: NIFEdipine 10 MG CAP PO SCH (09:50)
[2021-11-25] MEDS: ISOSORBIDE MONO SR 30 MG TAB PO SCH (09:50)
[2021-11-25] MEDS: ASPIRIN EC 81 MG TAB PO SCH (09:51)
[2021-11-25] MEDS: CLOPIDOGREL 75 MG TABLET PO SCH (09:51)
[2021-11-25] MEDS: carvediloL 12.5 MG TAB PO SCH ×2 (09:51→21:26)
[2021-11-25] MEDS: DOCUSATE NA 100 MG CAP PO SCH (09:51)
[2021-11-25] MEDS: SEVELAMER CARBONATE 800 MG TABLET PO SCH ×3 (09:51→17:30)
[2021-11-25] MEDS: HYDRALAZINE HCL 25 MG TABLET PO SCH (09:51)
[2021-11-25 11:23] VITALS: O2SAT 95
--- NOTE | 2021-11-25 11:46 | PN ---
Date of Progress Note: 11/25/2021 Subjective: The patient was admitted with urgent hypertension, chest pain. The patient was dialyzed yesterday, managed to remove 2 L, scheduled for dialysis today. Physical Examination: Vital Signs: Blood pressure 115/57, pulse of 73, afebrile. Chest: Crackles bilateral base. Heart: S1, S2. Regular. Abdomen: Soft, nontender. Extremities: No edema. Neurologic: Alert. No focality. Laboratory Data: WBC 3 H and H 9/27.3. Sodium 135, potassium 4.3, bicarb 30, BUN 43, creatinine 5, calcium 8, phosphorus 5.4. Current Medications: The patient on include; 1.Aspirin. 2.Amoxicillin. 3.Plavix. 4.Epogen. 5.Carvedilol 12.5. 6.Hydralazine 50 daily. 7.Isosorbide. 8.Nifedipine. 9.Keppra. 10.Trazodone. 11.Renvela. Assessment And Plan: 1.End-stage renal disease, over volume with urgent hypertension. We will do another session of dial ysis today. We will try to remove another 2 L and we will follow up. 2.Hypernatremia secondary to dilutional, will be corrected with dialysis. 3.Urgent hypertension, currently blood pressure well controlled. We will discontinue nifedipine. W e will utilize blood pressure for more ultrafiltration. 4.Over volume. The patient is going to be challenged today. 5.Secondary hyperparathyroidism. Continue Renvela. 6.Anemia of chronic kidney disease. Continue MELA. 7.Chest pain. Unstable angina has been ruled out. We will follow up with the primary. The patient cleared from the Renal standpoint for discharge planning after dialysis. LISETH/EVAN Voice ID: [id number] Report ID: [id number]
--- NOTE | 2021-11-25 14:35 | RAD REPORT ---
EXAM DESCRIPTION: RAD - Chest Single View - 11/25/2021 2:16 pm CLINICAL HISTORY: follow up pleural effusion COMPARISON: Chest Single View dated 11/23/2021; Chest Single View dated 11/14/2021; Chest Single View dated 10/12/2021; Chest Single View dated 06/04/2021; Thoracentesis w/ US Guide dated 11/24/2021 FINDINGS: Lines: None. Lungs: Atelectasis and/or consolidation of the right lung base, similar. Pleural: Only slight decrease in size of the moderate right-sided pleural effusion. Cardiac: Cardiomegaly. Annuloplasty. Sternotomy. Bones: No acute fractures. Other: IMPRESSION: Only slight decrease in size of the moderate right pleural effusion following yesterday' s thoracentesis. Some of the fluid may have reaccumulated. Presumably underlying atelectasis.
--- NOTE | 2021-11-25 15:30 | P.PN ---
Subjective Date of Service: 11/25/21 Chief Complaint: Palpitations Patient states she feels much better today She is currently on 2 L oxygen by nasal cannula. No issues overnight. Physical Examination - Vital Signs Temperature: 97.1 F Blood Pressure: 109/58 Pulse: 70 Respirations: 21 Pulse Ox (%): 100 - Studies Microbiology Data (last 24 hrs): 11/24/21 10:30 Body Fluid - Chest Gram Stain - Final Assessment And Plan - Current Problems (Diagnosis) (1) Pleural effusion Current Visit: Yes Status: Acute (2) Elevated troponin Current Visit: Yes Status: Acute (3) End-stage renal disease on hemodialysis Current Visit: Yes Status: Chronic (4) Hypertension Current Visit: Yes Status: Chronic Qualifiers: Hypertension type: primary hypertension Qualified Code(s): I10 - Essential (primary) hypertension (5) Type 2 diabetes mellitus Current Visit: Yes Status: Chronic Qualifiers: Diabetes mellitus terminal manager insulin use: without terminal manager use Diabetes mellitus complication status: without complication Qualified Code(s): E11.9 - Type 2 diabetes mellitus without complications (6) COVID-19 Current Visit: Yes Status: Acute - Plan Physical Exam General: Alert, In no apparent distress HEENT: Atraumatic, PERRLA, EOMI, Sclerae nonicteric Neck: Supple, 2+ carotid pulse no bruit, No LAD, Without JVD or thyroid abnormality Respiratory: Diminished breath sounds on the right, no crackles. Cardiovascular: Regular rate/rhythm, Normal S1 S2 Gastrointestinal: Normal bowel sounds, No tenderness Musculoskeletal: No tenderness Integumentary: No rashes Neurological: Normal speech, Normal strength at 5/5 x4 extr, Normal affect. Plan: Cardiology input appreciated. Status post thoracentesis and about 1.2 L of [place]-colored pleural fluid drained. No evidence of infection. No lung mass. Pleural fluid sent for cytology. Patient tested positive for COVID-19. Patient is now maintained on 2 L oxygen by nasal cannula. Repeat chest x-ray shows recollection of the right pleural effusion. Nephrology is following. May need to adjust hemodialysis to treat the pleural effusion. Continue home antihypertensives. History of CABG. had a recent cardiac catheterization last week which showed occlusion of [place] vessels. Cardiology recommended medical management. Blood pressure improved and patient is currently normotensive. Continue beta-blockers and other antihypertensives.
[2021-11-25] MEDS: AMOXICILLIN TRIHYDR 250 MG CAP PO SCH (17:31)
[2021-11-25] MEDS: TRAZODONE 50 MG TABLET PO SCH (21:26)
[2021-11-25] MEDS: levETIRAcetam 500 MG TAB PO SCH (21:27)
[2021-11-25] MEDS: ATORVASTATIN 40 MG TAB PO SCH (21:27)
[2021-11-25] MEDS: MIRTAZAPINE 15 MG TAB PO SCH (21:27)
[2021-11-26] MEDS: HEPARIN 5000 UNIT/ML 1 ML VIAL SQ SCH ×2 (01:12→09:13)
[2021-11-26 03:58] LABS: Albumin 2.8 g/dL (3.4-5.0); Phosphorus 4.2 mg/dL (2.5-4.9); Potassium 4.4 mmol/L (3.5-5.1)
[2021-11-26 05:02] LABS: Magnesium 2.5 mg/dL (1.8-2.4)
[2021-11-26] MEDS: INSULIN -REGULAR HUMAN 50 UNIT/0.5 ML ML SQ SCH ×2 (07:30→11:30)
[2021-11-26] MEDS: SEVELAMER CARBONATE 800 MG TABLET PO SCH ×2 (09:11→12:00)
[2021-11-26] MEDS: AMOXICILLIN TRIHYDR 250 MG CAP PO SCH (09:11)
[2021-11-26] MEDS: DOCUSATE NA 100 MG CAP PO SCH (09:12)
[2021-11-26] MEDS: carvediloL 12.5 MG TAB PO SCH (09:12)
[2021-11-26] MEDS: HYDRALAZINE HCL 25 MG TABLET PO SCH (09:12)
[2021-11-26] MEDS: ASPIRIN EC 81 MG TAB PO SCH (09:13)
[2021-11-26] MEDS: CLOPIDOGREL 75 MG TABLET PO SCH (09:13)
--- NOTE | 2021-11-26 11:08 | P.DS ---
Admission Date: 11/24/21 Discharge Date: 11/26/21 Disposition: ROUTINE DISCHARGE Discharge Condition: FAIR Reason for Admission: Palpitations - Problems (1) Pleural effusion Current Visit: Yes Status: Acute (2) Elevated troponin Current Visit: Yes Status: Acute (3) End-stage renal disease on hemodialysis Current Visit: Yes Status: Chronic (4) Hypertension Current Visit: Yes Status: Chronic Qualifiers: Hypertension type: primary hypertension Qualified Code(s): I10 - Essential (primary) hypertension (5) Type 2 diabetes mellitus Current Visit: Yes Status: Chronic Qualifiers: Diabetes mellitus intermediate insulin use: without intermediate use Diabetes mellitus complication status: without complication Qualified Code(s): E11.9 - Type 2 diabetes mellitus without complications (6) COVID-19 Current Visit: Yes Status: Acute Brief History of Present Illness: Patient is a 66-year-old female with history of ESRD on HD MWF, [id number] type 2 diabetes, CAD status post CABG with recent stents and pacemaker placement, hypertension, and hyperlipidemia who presented to the ED via EMS with complaints of heart palpitations and shortness of breath. She stated that she has experienced palpitations in the past, but they have typically resolved within 30 seconds. EMS did capture an episode of her palpitations on EKG exhibiting sinus tach with rate of 158. Her labs in the ED were significant Cr 7, PT 12, troponin high sensitivity 881, BNP > 175,000- all similar to previous admissions. CXR showed moderate to large right pleural effusion. She was also COVID-19+ but incidentally tested positive 1.5 weeks ago during prior admission. Patient with extensive cardiac work ups recently- including cardiac cath, nuclear stress test, and echocardiogram 1 month ago. Patient admitted for further management. Hospital Course: Patient seen in consultation by cardiology and nephrology. She underwent hemodialysis Status post thoracentesis and about 1.2 L of ashley-colored pleural fluid drained. No evidence of infection. No lung mass. Pleural fluid cytology unremarkable Patient was on 2 L oxygen by nasal cannula which per patient is her baseline. Repeat chest x-ray shows recollection of the right pleural effusion. Nephrology rechallenged her during dialysis. Case discussed with nephrology who plans to continue challenging her with dialysis Continued home antihypertensives. History of CABG. had a recent cardiac catheterization last week which showed occlusion of igiugig vessels. Cardiology recommended medical management. Continued beta-blockers and other antihypertensives during the hospital stay. Patient is currently at baseline and deemed stable for discharge. Vital Signs/Physical Exam: Temp Pulse Resp BP Pulse Ox 97.6 F 70 16 157/73 H 100 11/26/21 08:00 11/26/21 08:00 11/26/21 08:00 11/26/21 08:00 11/26/21 08:00 General: Alert, In no apparent distress, Oriented x3 HEENT: Mucous membr. moist/pink Neck: JVD not distended Respiratory: Diminished (Bilateral) Cardiovascular: No edema, Regular rate/rhythm, Normal S1 S2, No murmurs Gastrointestinal: Soft and benign, Non-distended, No tenderness Musculoskeletal: No swelling Integumentary: No rashes Neurological: Normal strength at 5/5 x4 extr Laboratory Data at Discharge: WBC 3.00 K/uL (4.3-10.9) L D 11/24/21 03:27 Hgb 9.0 g/dL (12.0-15.0) L 11/24/21 03:27 Hct 27.3 % (36.0-45.0) L 11/24/21 03:27 Plt Count 121 K/uL (152-406) L 11/24/21 03:27 PT 12.8 SECONDS (9.5-12.5) H 11/23/21 13:30 INR 1.16 11/23/21 13:30 Sodium 135 mmol/L (136-145) L 11/26/21 02:50 Potassium 4.4 mmol/L (3.5-5.1) 11/26/21 02:50 BUN 30 mg/dL (7-18) H 11/26/21 02:50 Creatinine 4.03 mg/dL (0.55-1.3) H D 11/26/21 02:50 Glucose 116 mg/dL (74-106) H 11/26/21 02:50 Phosphorus 4.2 mg/dL (2.5-4.9) 11/26/21 02:50 Magnesium Cancelled 11/26/21 04:51 Total Bilirubin 0.5 mg/dL (0.2-1.0) 11/24/21 03:27 AST 18 U/L (15-37) 11/24/21 03:27 ALT 19 U/L (12-78) 11/24/21 03:27 Alkaline Phosphatase 145 U/L (45-117) H 11/24/21 03:27 Home Medications: Aspirin [Ecotrin 81 MG] 81 mg PO DAILY 10/13/21 Atorvastatin Calcium [Lipitor] 40 mg PO BEDTIME 10/13/21 Carvedilol [Coreg] 12.5 mg PO BID 10/13/21 Hydralazine [Apresoline*] 50 mg PO DAILY 10/13/21 Isosorbide Mononitrate [Isosorbide Mononitrate ER] 30 mg PO DAILY #30 tab.er.24h 10/13/21 Mirtazapine 15 mg PO BEDTIME 10/13/21 Trazodone [Desyrel*] 50 mg PO BEDTIME 10/13/21 levETIRAcetam [Keppra*] 500 mg PO BEDTIME 10/13/21 Clopidogrel Bisulfate [Plavix*] 75 mg PO DAILY #30 tablet 10/16/21 Docusate [Colace Cap*] 100 mg PO DAILY #30 cap 11/15/21 Hydrocodone 5/APAP 325 [Jones 5/325*] 1 tab PO Q6H PRN #30 tab 11/15/21 Amoxicillin [Amoxil Cap*] 500 mg PO DAILY #7 cap 11/26/21 Epoetin [Retacrit] 10,000 unit IV EVERY HD vial 11/26/21 Sevelamer Carbonate [Renvela*] 2,400 mg PO TIDWM #270 tab 11/26/21 New Medications: Amoxicillin [Amoxil Cap*] 500 mg PO DAILY #7 cap Sevelamer Carbonate [Renvela*] 2,400 mg PO TIDWM #270 tab Time spent managing pt's care (in minutes): 38
[2021-11-26] MEDS: ISOSORBIDE MONO SR 30 MG TAB PO SCH (12:13)
[2021-11-26 12:14] VITALS: BP 153/76; TEMP 97.2
--- NOTE | 2021-11-26 13:48 | PN ---
Date of Progress Note: 11/26/2021 Subjective: The patient was admitted after thoracocentesis with leaking. The patient found to have COVID, treated. The patient had chronic shortness of breath. The patient was dialyzed [id number]. Blood pressure was elevated after dialysis. Blood pressure had been controlled. Physical Examination: Vital Signs: When I saw the patient; blood pressure 157/73, pulse of 70, afebrile. Chest: Decreased entry on the right base. Heart: S1, S2. Systolic murmur. Abdomen: Soft, nontender. Extremity: No edema. Neuro: Alert. No focality. Laboratory Data: Chest x-ray, right pleural effusion. WBC 3, H and H 9/27.3. Sodium 135, potassium 4.4, bicarb 29, BUN 30, creatinine 4, calcium 8.2, phosphorus 4.2, magnesium 2.5. Pleural fluid pierre lysis is still pending. Current Medications: The patient on include aspirin, amoxicillin, Plavix, Epogen, carvedilol 12.5, a torvastatin, isosorbide 30, hydralazine 50 daily, Keppra, mirtazapine, trazodone, Renvela. Assessment And Plan: 1.End-stage renal disease, started to be close to the normal volume. Unfortunately, the pleural eff usion is a third spacing, fluid not going to be achievable by the hemodialysis. The patient will end up needing recurrent thoracocentesis. We will follow up with Pulmonary as outpatient. 2.Hypertension with urgent hypertension, had improved significantly. Continue current regimen. Hol d nifedipine. We will keep utilizing blood pressure for more ultrafiltration to achieve better volum e control. 3.Renal artery stenosis, status post stenting, stable. 4.Endocarditis, on chronic antibiotic suppression with amoxicillin. 5.Pleural effusion. Culture was negative. Lab is still pending. We will follow up as outpatient. As I mentioned, the patient will need Pulmonary and repeated thoracocentesis as outpatient. We will follow up. 6.Diabetes as by primary. 7.Hyponatremia, dilutional, corrected with dialysis. MA/MODL Voice ID: [id number] Report ID: [id number]
[2021-11-28 19:04] LABS: TOTAL PROTEIN, PLEURAL FLUID 4.3 g/dL
== END 2021-11-26 14:03 | disposition home or self-care (01) | DRG 308 ==
LOC: ER 12:13 → ERHOLD 19:44 → 4TH 21:18 → OBSVTOIN 11-24 18:13 → 4TH 11-25 15:34
PROVIDERS: ADMIT Hospitalist; ATTEND Hospitalist
PROC: 5A1D70Z Performance of Urinary Filtration, Intermittent, Less than 6 Hours Per Day (ICD-10-PCS; principal; 2021-11-24)
PROC: 0W993ZZ Drainage of Right Pleural Cavity, Percutaneous Approach (ICD-10-PCS; 2021-11-24)
DX: R00.2 Palpitations (principal); N18.6 End stage renal disease; U07.1 COVID-19; J90 Pleural effusion, not elsewhere classified; I50.22 Chronic systolic (congestive) heart failure; I13.2 Hypertensive heart and chronic kidney disease with heart failure and with stage 5 chronic kidney disease, or end stage renal disease; E11.22 Type 2 diabetes mellitus with diabetic chronic kidney disease; E78.5 Hyperlipidemia, unspecified; K21.9 Gastro-esophageal reflux disease without esophagitis; I27.20 Pulmonary hypertension, unspecified; I25.709 Atherosclerosis of coronary artery bypass graft(s), unspecified, with unspecified angina pectoris; I25.2 Old myocardial infarction; R77.8 Other specified abnormalities of plasma proteins; Z95.5 Presence of coronary angioplasty implant and graft; Z95.0 Presence of cardiac pacemaker; Z79.52 Long term (current) use of systemic steroids; Z99.2 Dependence on renal dialysis; Z95.1 Presence of aortocoronary bypass graft; Z79.82 Long term (current) use of aspirin; Z79.02 Long term (current) use of antithrombotics/antiplatelets; Z79.899 Other long term (current) drug therapy
CPT/HCPCS: 32555; 36415; 71045; 80048; 80053; 80069; 82042; 82550; 82553; 82945; 82947; 83615; 83735; 83880; 84100; 84157; 84443; 84484; 85025; 85610; 87070; 87811; 88108; 90935; 93005; 99285; G0378; J0360; J1644; J2250; J2405

== ENCOUNTER 2021-12-07 08:01 | Emergency (ER) | payer OTHER ==
--- OUTSIDE RECORDS SUMMARY | 2021-12-07 08:47 | XMS REPORT | Continuity of Care Document ---
:1955 Author Organization [facility] t Address [address] [place] [address] Care Team Providers Name Role Phone Dianna Nunes MD, Wild Noel Primary Care Physician [phone] ANGELA LOCO Attending Clinician Unavail able FRACISCO HAYDEN Attending Clinician Unavailable ROGER ARAUJO Attending Clinician Unavailable ROGER ARAUJO Attending Clinician Unavailable Fracisco [place]den MD Attending Clinician Doctor Unassigned, [place] Attending Clinician Unavailable Alfredo TRUJILLO, Brenda Attending Clinician Niki Pool RN Attending Clinician Unavailable NADYA MENDIOLA Attending Clinician Unavailable Kip TRUJILLO, Uri Attending Clinician Shiela TRUJILLO, Jameson Attending Clinician León TRUJILLO, Kanwal Attending Clinician Samia TRUJILLO, Mary Kate Christine Attending Clinician Ladarius Jc MD, Clary Resendiz Attending Clinici an Harjeet TRUJILLO, Luh Attending Clinician Logan Russo MD Attending Clinician LOGAN RUSSO Attending Clinician Unavailable URI UMANZOR Attending Clinician Unavailable Beronica TRUJILLO, Angela Torres Attending Clinician [phone] Mitchel TRUJILLO, Nicola Thomas Attending Clinician Ju TRUJILLO, Krzysztof Biggs Attending Clinician Marissa TRUJILLO, Fadia Smith Attending Clinician Max TRUJILLO, Asad Whitman Attending Clinician [phone] Nikolay TRUJILLO, Vahid Mai Attending Clinician Ellie TRUJILLO, Sade Sandoval Attending Clinician Robert Allen Attending Clinician Unavailable Donte TRUJILLO, Mili Attending Clinician Dina Hudson Attending Clinician Unavailable Rakan Bennett RN Attending Clinician Unavailable Dangelo Ibrahim DO Attending Clinician Neil Thomas MD Attending Clinician NEIL THOMAS Attending Clinician Unavailable Niki Dill RN Attending Clinician Unavailable Jayjay Frazier Attending Clinician Unavailable Pascale Alvarez PA-C Attending Clinician ANGELA LOCO Admitting Clinician Unavail able JAMESON KUO Admitting Clinician Unavailable Neil Thomas MD Admitting Clinician NEIL THOMAS Admitting Clinician Unavailable Payers Payer Name Policy Type Policy Number Effective Date Expiration Date S ource [employer] MEDICARE [id number] 2020 00:00:00 MEDICAID [facility] [id number] 2019 00:00:00 WELLMED/DEYVI MCARE [id number] 2021 ADV CHOICE PPO 00:00:00 MEDICAID OF [place] [id number] 2018 00:00:00 Problems Condition Condition Condition Status Onset Resolution Last Treating Co mments Source Name Details Category Date Date Treatment Clinician Date S/P MVR S/P MVR Disease Active Univers (mitral (mitral 09-29 ity of valve valve 00:00: [place] repair) repair) 00 Medical Branch S/P TVR S/P TVR Disease Active Univers (tricuspid (tricuspid 09-29 it y of valve valve 00:00: [place] repair) repair) 00 Medical Branch Endocardit Endocardit Disease Active U nivers is and is and 6 ity of heart heart 00:00: [place] valve valve 00 Medical disorders disorders Bran ch in in diseases diseases classified classified elsewhere elsewhere Insomnia Insomnia Disease Active Unive rs due to due to 09-04 ity of other other 00:00: [place] mental mental 00 Medical disorder disorder Branch Decreased Decreased Disease Active Uni vers activities activities 6- it y of of daily of daily 00:00: [place] living living 00 Medical (ADL) (ADL) Branch Dyslipidem Dyslipidem Disease Active U nivers ia ia 6- ity of 00:00: [place] [facility] Decreased Decreased Disease Active Uni vers appetite appetite 6- ity of 00:00: [place] [facility] Seizure Seizure Disease Active Univers 6- ity of 00:00: [place] [facility] 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 00 Medical depressive depressive Br anch disorder, disorder, without without psychotic psychotic features features Generalize Generalize Disease Active U nivers d anxiety d anxiety 6- ity of disorder disorder 00:00: [place] [facility] Panic Panic Disease Active Univers attacks attacks 6- ity of 00:00: [place] [facility] Encounter Encounter Disease Active Uni vers to to 08-28 [place] of establish establish 00:00[place] care care [place] Hepatic Hepatic Disease Active Univers cirrhosis, cirrhosis, 5- it y of unspecifie [place]ifie [place] hepatic 00 Medi yoel cirrhosis cirrhosis Bran ch type, type, unspecifie unspecifie d whether d whether ascites ascites present present E44.1 Mild E44.1 Mild Disease Active U nivers protein-ca protein-ca 4-05 it y of sadi avitia 00:00: [place] malnutriti malnutriti 00 Me dical on on Branch Hematochez Hematochez Disease Active U nivers ia ia 4-04 ity of 00:00: [place] 00 Medical Branch Moderate Moderate Disease [facility] tricuspid tricuspid 3-17 [facility] regurgitat regurgitat 00:00: Me dical ion S/P ion S/P 00 Center Tricuspid Tricuspid valve valve repair repair (Drs. Russo (Drs. Russo and and Isak Parisi 06/18/2021 06/18/2021 ) ) S/P CABG x [...] 3-17 [facility] post-op post-op 00:00: Medical 00 [place] Acute Acute Disease Active [facility] blood loss blood loss 3-17 [facility] anemia anemia 00:00: Medical 00 [place] Acute Acute Disease Active [facility] postoperat postoperat 3-17 [facility] cristela pain cristela pain 00:00: Medica l 00 [place] MV MV Disease Active [facility] Endocardit Endocardit 3-17 [facility] is is 00:00: Medical 00 [place] Acute Acute Disease Active [facility] encephalop encephalop 3-12 [facility] athy athy 00:00: Medical 00 [place] HTN HTN Disease Active [facility] (hypertens [...] & TV 00:00: Medical Repair Repair 00 [place] (Russo) (Russo) Pulmonary Pulmonary Disease Active Uni vers hypertensi hypertensi 2-13 it y of on on 00:00: [place] 00 Medical Branch Acute on Acute on Disease Active Unive rs chronic chronic 2-13 ity of respirator [place] failure 00 [facility] with with Branch hypoxia hypoxia Coronary Coronary Disease Active Unive rs artery artery 2-12 ity of disease disease 00:00: [place] involving involving 00 [facility] [place] Branch coronary coronary artery of artery of [place] heart with heart with angina angina pectoris pectoris Acute on Acute on Disease Active Unive [...] diabetes 2-12 ity of mellitus mellitus 00:00: [place] with with 00 Medical kidney kidney Branch [...] cular 2-11 ity of accident accident 00:00: [place] (CVA), (CVA), 00 Medical unspecifie unspecifie Br anch d d mechanism mechanism ESRD on ESRD on Disease Active Univers dialysis dialysis 2-11 ity of 00:00: [place] [facility] Fall on Fall on Disease Active Univers concrete concrete 2-11 ity of 00:00: [place] [facility] Acute pain Acute pain Disease Active U nivers of right of right 2-11 ity of knee knee 00:00: [place] [facility] Dizziness Dizziness Disease Active Uni vers 2-11 ity of 00:00: [place] [facility] Lower leg Lower leg Disease Active Uni vers edema edema 2-11 ity of 00:00: Medical Branch Abnormal Abnormal Disease Active Unive rs EKG EKG 2-11 ity of 00:00: [place] [facility] Chest Chest Disease Active Univers pressure pressure 2-11 ity of 00:00: [place] [facility] Chest pain Chest pain Disease Active U nivers 2-11 ity of 00:00: [place] [facility] Postmenopa Postmenopa Disease Active U nivers usal usal 4-20 ity of bleeding bleeding 00:00: [place] [facility] Obesity Obesity Disease Active Univers (BMI (BMI 4-20 ity of 30-39.9) 30-39.9) 00:00: [place] 00 Medical Branch Hematoma Hematoma Disease Active Metho [...] rmann d weakness Problem 02/19/[address] [facility] Hyperkalem Hyperkale Problem 2019-02-19 Memoria ia brett 22:28:00 l Problem Juanito 02/19/[address] [facility] Elevated Elevated Condition 2019-02-19 Memoria brain brain 22:28:00 l natriureti natriureti He rmann c peptide c peptide (BNP) (BNP) level level Condition 02/19/[address] [facility] Episode of Episode Condition 2019-02-19 Memoria generalize of 22:28:00 l d weakness generalize He rmann d weakness Condition 02/19/[address] [facility] Hyperkalem Hyperkale Condition 2019-02-19 Memoria ia brett 22:28:00 l Condition Juanito 02/19/[address] [facility] Hypertensi Hypertens Condition 2019-02-19 Memoria on with ion with 22:28:00 l goal to be goal to be He rmann determined determined Condition 02/19/[address] [facility] Acute Acute Condition 2019-02-19 Mem oria respirator respirator 22:28:00 l y disease y disease Herm ivelisse Condition 02/19/[address] [facility] End-stage Condition 2019-02-19 Memoria renal End-stage 22:28:00 l disease on renal Freddy n hemodialys disease on is hemodialys is Condition 02/19/[address] 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 End-stage End-stage Problem 2019-02-19 Memoria renal renal 22:28:00 l disease on disease on He rmann hemodialys hemodialys is is Problem 02/19/[address] [facility] Upper Upper Problem 2019-02-19 Memor ia respirator respirator 22:28:00 l y y Juanito infection infection Problem 02/19/[address] [facility] Elevated Elevated Problem 2019-02-19 Memoria troponin troponin 22:28:00 l level level Juanito Problem 02/19/[address] [facility] Pacemaker Pacemaker Disease [facility] Wears Wears Disease Active [facility] glasses [facility] ESRD (end ESRD (end Disease Active [facility] stage stage [facility] renal renal Medical disease) disease) Center on on dialysis dialysis (HCC), on (HCC), on dialysis dialysis via RUE via RUE AVF AVF Allergies, Adverse Reactions, Alerts Allergy Allergy Status Severity Reaction(s) Onset Inactive Treating Comm ents Source Name Type Date Date Clinician Heparin Propensi Active "won't Methodi ty to 10-[address] adverse 00:00: bleeding" Hospit a reaction 00 l s to drug NO KNOWN Drug Active Univers ALLERGIE Class ity of S [facility] NO KNOWN Allergy Active [facility] ALLERGIE S Family History Family Member Diagnosis Comments Start Date Stop Date Source Natural brother [facility] Natural father Diabetes [facility] Natural mother [facility] sister [facility] Social History Social Habit Start Date Stop Date Quantity Comments Source History SDWI Judaism Ho spital Alcohol Std Drinks History [facility] Judaism Ho spital Alcohol Binge History [facility] Judaism Ho spital Alcohol Comment Exposure to 2021-09-19 2021-09-29 Not sure [facility]-CoV2 00:00:00 14:42:00 [facility] (event) [place] Tobacco use and 2020-07-24 2020-07-[address] [facility] [address] [facility] exposure 00:00:00 00:00:00 Medical Center Social History 2019-02-19 2019-02-19 [facility] 22:28:00 22:28:00 Alcohol intake 2018-10-27 2018-10-27 [facility] 00:00:00 00:00:00 non-drinker of alcohol (finding) History SDOH 2018-10-26 2018-10-26 1 [facility] Ho spital Alcohol Frequency 00:00:00 00:00:00 Sex Assigned At [address] [facility] 00:00:00 00:00:00 [facility] Smoking Status Start Date Stop Date Source Unknown if ever smoked [facility] Never smoked tobacco [facility] Medications Ordered Filled Start Stop Current Ordering Indication Dosage Frequency Signature Comments Components Source Medication Medication Date Date Medication? Clinician (SIG) Name Name shelby Yes 40mg Take 40 mg Univers n 40 mg 6-28 by mouth ity of tablet 15:14: at [place] 02 bedtime. Medical Branch atorvastati Yes 40mg Take 40 mg Univers n 40 mg 6-28 by mouth ity of tablet 15:14: at [place] 02 bedtime. Medical Branch atorvastati Yes 40mg Take 40 mg Univers n 40 mg 6-28 by mouth ity of tablet 15:14: at [place] 02 bedtime. Medical Branch atorvastati Yes 40mg Take 40 mg Univers n 40 mg 6-28 by mouth ity of tablet 15:14: at [place] 02 bedtime. Medical Branch clopidogreL Yes [id number] 75mg Take 1 Univers 75 mg 6-28 tablet by ity of tablet 00:00: mouth [place] 00 daily. Medical Branch clopidogreL Yes [id number] 75mg Take 1 Univers 75 mg 6-28 tablet by ity of tablet 00:00: mouth [place] 00 daily. Medical Branch clopidogreL Yes [id number] 75mg Take 1 Univers 75 mg 6-28 tablet by ity of tablet 00:00: mouth [place] 00 daily. Medical Branch clopidogreL Yes [id number] 75mg Take 1 Univers 75 mg 6-28 [...] Branch Tuesday and Tuesday. After dialysis CARVEDILOL 2022-0 Yes 12.5mg Take 12.5 Univers ORAL 6-03 mg by ity of 10:47: mouth 2 [place] 33 (two) Medical times [place] daily. NIFEdipine 2-0 Yes 10mg Take 10 mg U nivers 10 mg 6-03 by mouth 3 ity of capsule 10:47: (three) [place] 33 times Medical daily. Branch levETIRAcet 2021-0 Yes 500mg Take 500 U nivers am (KEPPRA) 6-03 mg by ity of 500 mg 10:47: mouth at [place] tablet 33 bedtime. Medical Branch levETIRAcet 2021-0 Yes 250mg Take 250 U nivers am (KEPPRA) 6-03 mg by ity of 250 mg 10:47: mouth [place] tablet 33 every Medical Tuesday, Branch Tuesday and Tuesday. After dialysis CARVEDILOL 2-0 Yes 12.5mg Take 12.5 Univers ORAL 6-03 mg by ity of 10:47: mouth 2 [place] 33 (two) Medical times [place] daily. NIFEdipine 2021-0 Yes 10mg Take 10 mg U nivers 10 mg 6-03 by mouth 3 ity of capsule 10:47: (three) [place] 33 times Medical daily. Branch levETIRAcet 2021-0 Yes 500mg Take 500 U nivers am (KEPPRA) 6-03 mg by ity of 500 mg 10:47: mouth at [place] tablet 33 bedtime. Medical Branch levETIRAcet 2021-0 Yes 250mg Take 250 U nivers am (KEPPRA) 6-03 mg by ity of 250 mg 10:47: mouth [place] tablet 33 every Medical Tuesday, Branch Tuesday and Tuesday. After dialysis CARVEDILOL 2-0 Yes 12.5mg Take 12.5 Univers ORAL 6-03 mg by ity of 10:47: mouth 2 [place] 33 (two) Medical times [place] daily. NIFEdipine 2022-0 Yes 10mg Take 10 mg U nivers 10 mg 6-03 by mouth 3 ity of capsule 10:47: (three) [place] 33 times Medical daily. Branch levETIRAcet 2-0 Yes 500mg Take 500 U nivers am (KEPPRA) 6-03 mg by ity of 500 mg 10:47: mouth at [place] tablet 33 bedtime. Medical Branch levETIRAcet 0 Yes 250mg Take 250 U nivers am (KEPPRA) 6-03 mg by ity of 250 mg 10:47: mouth [place] tablet 33 every Medical Tuesday, Branch Tuesday and Tuesday. After dialysis mirtazapine 0 Yes [id number] 15mg Take 1 Univers (REMERON) 6-03 tablet by ity o f 15 mg 00:00: mouth at [place] tablet 00 bedtime. Medical Branch traZODone 2021-0 Yes [id number] 50mg Take 1 Un kecia 50 mg 6-03 tablet by ity of tablet 00:00: mouth at [place] 00 bedtime. Medical Branch mirtazapine 0 Yes [id number] 15mg Take 1 Univers (REMERON) 6-03 tablet by ity o f 15 mg 00:00: mouth at [place] tablet 00 bedtime. Medical Branch traZODone 2021-0 Yes [id number] 50mg Take 1 Un kecia 50 mg 6-03 tablet by ity of tablet 00:00: mouth at [place] 00 bedtime. Medical Branch mirtazapine 0 Yes [id number] 15mg Take 1 Univers (REMERON) 6-03 tablet by ity o f 15 mg 00:00: mouth at [place] tablet 00 bedtime. Medical Branch traZODone 2021-0 Yes [id number] 50mg Take 1 Un kecia 50 mg 6-03 tablet by ity of tablet 00:00: mouth at [place] 00 bedtime. Medical Branch mirtazapine 2021-0 Yes [id number] 15mg Take 1 Univers (REMERON) 6-03 tablet by ity o f 15 mg 00:00: mouth at [place] tablet 00 bedtime. Medical Branch traZODone 2021-0 Yes [id number] 50mg Take 1 Un kecia 50 mg 6-03 tablet by ity of tablet 00:00: mouth at [place] 00 bedtime. Medical Branch amoxicillin 2021-0 Yes 500mg Take 500 U nivers 500 mg 5-24 mg by ity of capsule 00:00: mouth. [place] [facility] amoxicillin 2021-0 Yes 500mg Take 500 U nivers 500 mg 5-24 mg by ity of capsule 00:00: mouth. [place] [facility] amoxicillin 2021-0 Yes 500mg Take 500 U nivers 500 mg 5-24 mg by ity of capsule 00:00: mouth. [address] Branch amoxicillin 2021-0 Yes 500mg Take 500 U nivers 500 mg 5-24 mg by ity of capsule 00:00: mouth. [place] [facility] hydrALAZINE 0 Yes 50mg Take 50 mg Univers 50 mg 4-08 by mouth. ity of tablet 00:00: [place] [facility] hydrALAZINE 2021-0 Yes 50mg Take 50 mg Univers 50 mg 4-08 by mouth. ity of tablet 00:00: [place] [facility] hydrALAZINE 2021-0 Yes 50mg Take 50 mg Univers 50 mg 4-08 by mouth. ity of tablet 00:00: [place] [facility] hydrALAZINE 0 Yes 50mg Take 50 mg Univers 50 mg 4-08 by mouth. ity of tablet 00:00: [place] [facility] levETIRAcet 2021-0 2021- No 250mg Take [address] am (KEPPRA) 07-06- tablet [facility] 250 MG 00:00: 23:59 (250 mg Medical tablet 00 :00 total) by Center mouth 3 (three) times a week after dialysis TUE/ I for 60 days. levETIRAcet 2021-0 2021- No 250mg Take [address] am (KEPPRA) 07-06- tablet [facility] 250 MG 00:00: 23:59 (250 mg Medical tablet 00 :00 total) by Center mouth 3 (three) times a week after dialysis TUE/ I for 60 days. levETIRAcet 2021-0 2021- No 250mg Take [address] am (KEPPRA) 07-06- tablet [facility] 250 MG 00:00: 23:59 (250 mg Medical tablet 00 :00 total) by Center mouth 3 (three) times a week after dialysis TUE/ I for 60 days. levETIRAcet 2021-0 2021- No 250mg Take [address] am (KEPPRA) 07-06- tablet [facility] 250 MG 00:00: 23:59 (250 mg Medical tablet 00 :00 total) by Center mouth 3 (three) times a week after dialysis TUE/ I for 60 days. multivitami Yes 1{tbl} QD Take [address] n with 4-02 tablet by [facility] minerals 14:35: mouth Medical tablet 35 daily. [place] sucroferric Yes 500mg Q.[id number] Take [address] oxyhydroxid 4-02 [id number] mg by L ukes e 500 mg 14:35: 3D mouth 3 Medica l Chew 35 (three) Center times daily. multivitami Yes 1{tbl} QD Take [address] n with 4-02 tablet by [facility] minerals 14:35: mouth Medical tablet 35 daily. [place] sucroferric Yes 500mg Q.[id number] Take [address] oxyhydroxid 4-02 [id number] mg by L ukes e 500 mg 14:35: 3D mouth 3 Medica l Chew 35 (three) Center times daily. multivitami Yes 1{tbl} QD Take [address] n with 4-02 tablet by [facility] minerals 14:35: mouth Medical tablet 35 daily. [place] sucroferric Yes 500mg Q.[id number] Take [address] oxyhydroxid 4-02 [id number] mg by L ukes e 500 mg 14:35: 3D mouth 3 Medica l Chew 35 (three) Center times daily. multivitami Yes 1{tbl} QD Take [address] n with 4-02 tablet by [facility] minerals 14:35: mouth Medical tablet 35 daily. [place] sucroferric Yes 500mg Q.[id number] Take [address] oxyhydroxid 4-02 [id number] mg by L ukes e 500 mg 14:35: 3D mouth 3 Medica l Chew 35 (three) Center times daily. aspirin 81 2021- No 81mg QD Take [address] [address] MG EC -05 08-02 by mouth [facility] tablet 11:07: 00:00 daily. Medical 35 :00 [place] carvediloL 2021- No 12.5mg Take 12.[address] (COREG) - 04-02 mg by [facility] 12.5 MG 11:07: 00:00 [...] :00 Center tablet hydrALAZINE 2021- No 50mg Q.[id number] Take [address] [facility] (APRESOLINE 07-04 [id number] by mouth 3 [facility] ) 50 MG [...] 35 :00 Center tablet hydrALAZINE No 50mg Q.[id number] Take [address] [facility] (APRESOLINE 07-04 [id number] by mouth 3 [facility] ) 50 MG 11:07: 00:00 3D (three) Medica l tablet 35 :00 times Center daily. lisinopriL No 5mg QD Take [address] (PRINIVIL,Z 07-04 by mouth Ned es ESTRIL) 5 11:07: 00:00 daily. Medic al MG tablet 35 :00 [place] aspirin 81 No 81mg QD Take [address] [address] MG EC 07-04 by mouth [facility] tablet 11:07: 00:00 daily. Medical 35 :00 [place] carvediloL 2021- No 12.5mg Take 12.5 [facility] [...] :00 Center tablet hydrALAZINE 2021- No 50mg Q.[id number] Take [address] [facility] (APRESOLINE 07-04 [id number] by mouth 3 [facility] ) 50 MG [...] tablet 11:07: 00:00 daily. Medical 35 :00 [place] carvediloL No 12.5mg Take 12.[address] [...] :00 Center tablet hydrALAZINE 2021- No 50mg Q.[id number] Take [address] [facility] (APRESOLINE 07-04 [id number] by mouth 3 [facility] ) 50 MG 11:07: 00:00 3D (three) Medica l tablet 35 :00 times Center daily. lisinopriL No 5mg QD Take [address] (PRINIVIL,Z 07-04 by mouth Ned es ESTRIL) 5 11:07: 00:00 daily. Medic al MG tablet 35 :00 Center cefTRIAXone 0 Yes 2g QD Inject [address] (ROCEPHIN) 4-02 intravenou Ned es 2 g in 00:00: sly daily. Medic al sodium 00 Center chloride 0.9 % (NS) 100 mL (V2B) IVPB cefTRIAXone Yes 2g QD Inject [address] (ROCEPHIN) 4-02 intravenou Ned es 2 g in 00:00: sly daily. Medic al sodium 00 Center chloride 0.9 % (NS) 100 mL (V2B) IVPB cefTRIAXone 0 Yes 2g QD Inject [address] (ROCEPHIN) 4-02 intravenou Ned es 2 g in 00:00: sly daily. Medic al sodium 00 Center chloride 0.9 % (NS) 100 mL (V2B) IVPB cefTRIAXone 0 Yes 2g QD Inject [address] (ROCEPHIN) 4-02 intravenou Ned es 2 g in 00:00: [...] (three) times a week at bedtime TUE/TUE/ for 60 days. levETIRAcet 2021- No 500mg [...] mouth Center nightly for 60 days. carvediloL 2021-2021- No 12.5mg Q.5D Take 1 CH I [...] E/TUE/ T for 60 days. levETIRAcet 2021- No [...] injection (three) times a week at bedtime TUE/ASTRID/SA T for 60 days. levETIRAcet 2021- No 500mg QD Take [address] am (KEPPRA) 07-04 tablet [facility] 500 MG 00:00: 23:59 (500 mg Medical tablet 00 :00 total) by Center mouth nightly for 60 days. insulin 2021- No Use as [facility] regular 07-04- directed. [facility] (HumuLIN 00:00: 00:00 Medical R,NovoLIN 00 :00 Center R) 100 unit/mL injection insulin 2021- No Use as [facility] regular 07-04- directed. [facility] (HumuLIN 00:00: 00:00 Medical R,NovoLIN 00 :00 Center R) 100 unit/mL injection insulin 2021- No Use as [facility] regular 07-04- directed. [facility] (HumuLIN 00:00: 00:00 Medical R,NovoLIN 00 :00 Center R) 100 unit/mL injection insulin 2021- No Use as [facility] regular 07-04- directed. [facility] (HumuLIN 00:00: 00:00 Medical R,NovoLIN 00 :00 Center R) 100 unit/mL injection insulin 2021- No Use as [facility] regular -05 08- directed. [facility] (HumuLIN 00:00: 00:00 Medical R,NovoLIN 00 :00 Center R) 100 unit/mL injection insulin 2021- No Use as [facility] regular 4- directed. [facility] (HumuLIN 00:00: 00:00 Medical R,NovoLIN [...] hr 59 Center tablet hydrALAZINE Yes 50mg Q.[id number] Take [address] [facility] [facility] (APRESOLINE 07-03 [id number] by mouth 3 [facility] ) 50 MG 13:18: 3D (three) Medical tablet 59 times Center daily. multivitami Yes 1{tbl} QD Take [address] n with 07-03 tablet by [facility] minerals 13:18: mouth Medical tablet 59 daily. Center lisinopriL Yes 5mg QD Take [address] (PRINIVIL,Z - by mouth Luke s ESTRIL) 5 13:18: daily. Medica l MG tablet 59 Center sucroferric Yes 500mg Q.[id number] Take [address] oxyhydroxid 07-03 [id number] mg by L ukes e 500 mg 13:18: 3D mouth 3 Medica l Chew 59 (three) Center times daily. atorvastati Yes 40mg QD Take [address] [facility] n (LIPITOR) 3-30 by mouth Luke s 40 MG 12:54: daily. Medical tablet 15 [place] isosorbide Yes 30mg QD Take 30 mg [...] hr 15 Center tablet hydrALAZINE Yes 50mg Q.[id number] Take [address] [facility] (APRESOLINE 3-30 [id number] by mouth 3 [facility] ) 50 MG 12:54: 3D (three) Medical tablet 15 times Center daily. multivitami Yes 1{tbl} QD Take [address] n with 3-30 tablet by [facility] minerals 12:54: mouth Medical tablet 15 daily. [place] lisinopriL Yes 5mg QD Take [address] (PRINIVIL,Z 3-30 by mouth Luke s ESTRIL) 5 12:54: daily. Medica l MG tablet 15 [place] sucroferric Yes 500mg Q.[id number] Take [address] oxyhydroxid 3-30 [id number] mg by L ukes e 500 mg [...] mg tablet 12:54: daily. Medica l 15 [place] NIFEdipine Yes 60mg QD Take [address] (PROCARDIA- 3-30 by mouth Luke s XL) 60 MG 12:54: daily. Medica l (OSM) 24 hr 15 Center tablet hydrALAZINE 0 Yes 50mg Q.[id number] Take [address] (APRESOLINE 3-30 [id number] by mouth 3 [facility] ) 50 MG [...] MG tablet 15 Center sucroferric Yes 500mg Q.[id number] Take [address] oxyhydroxid 3-30 [id number] mg by L ukes e 500 mg 12:54: 3D mouth 3 Medica l Chew 15 (three) Center times daily. atorvastati Yes 40mg QD Take [address] [facility] n (LIPITOR) 3-30 by mouth Luke s 40 MG 08:40: daily. Medical tablet 18 Center isosorbide Yes 30mg QD Take [address] mononitrate 3-30 by mouth Luke s (IMDUR) 30 08:40: daily. Medic al MG 24 hr 18 Center tablet clopidogreL 0 Yes 75mg QD Take [address] [address] (PLAVIX) 75 3-30 by mouth Luke s mg tablet 08:40: daily. Medica l 18 Center NIFEdipine Yes 60mg QD Take [address] (PROCARDIA- 3-30 by mouth Luke s XL) 60 MG 08:40: daily. Medica l (OSM) 24 hr 18 Center tablet hydrALAZINE 0 Yes 50mg Q.[id number] Take [address] (APRESOLINE 3-30 [id number] by mouth 3 [facility] ) 50 MG 08:40: 3D (three) Medical tablet 18 times Center daily. multivitami 2022-0 Yes 1{tbl} QD Take [address] [facility] [address] [facility] with 3-30 tablet by [facility] 08:40: mouth Medical tablet 18 daily. [place] lisinopriL 0 Yes 5mg QD Take [address] [facility] (PRINIVIL,Z 3-30 by mouth Luke s ESTRIL) 5 08:40: daily. Medica l MG tablet 18 [place] sucroferric Yes 500mg Q.[id number] Take [address] [facility] [address] oxyhydroxid 3-30 [id number] mg by L ukes e 500 mg 08:40: 3D mouth 3 Medica l Chew 18 (three) Center times daily. atorvastati Yes 40mg QD Take [address] [facility] (LIPITOR) 3-28 by mouth Luke s 40 MG 14:25: daily. Medical tablet 01 [place] isosorbide Yes 30mg QD Take 30 mg [...] hr 01 Center tablet hydrALAZINE Yes 50mg Q.[id number] Take [address] [facility] (APRESOLINE 3-28 [id number] by mouth 3 [facility] ) 50 MG 14:25: 3D (three) Medical tablet 01 times Center daily. multivitami Yes 1{tbl} QD Take [address] [facility] with 3-28 tablet by [facility] 14:25: mouth Medical tablet 01 daily. [place] lisinopriL Yes 5mg QD Take [address] (PRINIVIL,Z 3-28 by mouth Luke s ESTRIL) 5 14:25: daily. Medica l MG tablet 01 Center sucroferric Yes 500mg Q.[id number] Take [address] oxyhydroxid 3-28 [id number] mg by L ukes e 500 mg 14:25: 3D mouth 3 Medica l Chew 01 (three) Center times daily. atorvastati Yes 40mg QD Take [address] [facility] n (LIPITOR) 3-28 by mouth Luke s 40 MG 09:34: daily. Medical tablet 22 Center isosorbide 0 Yes 30mg QD Take [address] mononitrate -28 by mouth Luke s (IMDUR) 30 09:34: daily. Medic al MG 24 hr 22 Center tablet clopidogreL 0 Yes 75mg QD Take [address] [facility] (PLAVIX) 75 3-28 by mouth Luke s mg tablet 09:34: daily. Medica l 22 Center NIFEdipine Yes 60mg QD Take [address] (PROCARDIA- - by mouth Luke s XL) 60 MG 09:34: daily. Medica l (OSM) 24 hr 22 Center tablet hydrALAZINE Yes 50mg Q.[id number] Take [address] [facility] (APRESOLINE - [id number] by mouth 3 [facility] ) 50 MG 09:34: 3D (three) Medical tablet 22 times Center daily. multivitami Yes 1{tbl} QD Take [address] [facility] with - tablet by [facility] 09:34: mouth Medical tablet 22 daily. Center lisinopriL Yes 5mg QD Take [address] (PRINIVIL,Z - by mouth Luke s ESTRIL) 5 09:34: daily. Medica l MG tablet 22 Center sucroferric Yes 500mg Q.[id number] Take [address] oxyhydroxid - [id number] mg by L ukes e 500 mg [...] 49 Center tablet hydrALAZINE 0 Yes 50mg Q.[id number] Take [address] [facility] (APRESOLINE 3-25 [id number] by mouth 3 [facility] ) 50 MG [...] tablet 49 Center sucroferric 0 Yes 500mg Q.[id number] Take [address] oxyhydroxid 3-25 [id number] mg by L ukes e 500 mg [...] 15 Center tablet hydrALAZINE 0 Yes 50mg Q.[id number] Take [address] [facility] (APRESOLINE 3-20 [id number] by mouth 3 [facility] ) 50 MG [...] tablet 15 Center sucroferric 0 Yes 500mg Q.[id number] Take [address] oxyhydroxid 3-20 [id number] mg by L ukes e 500 mg [...] 15 Center tablet hydrALAZINE 0 Yes 50mg Q.[id number] Take [address] [facility] (APRESOLINE 3-20 [id number] by mouth 3 [facility] ) 50 MG 18:09: 3D (three) Medical tablet 15 times Center daily. multivitami 0 Yes 1{tbl} QD Take [address] [facility] with 3-20 tablet by [facility] 18:09: mouth Medical tablet 15 daily. [place] lisinopriL 0 Yes 5mg QD Take [address] (PRINIVIL,Z 3-20 by mouth Luke s ESTRIL) 5 18:09: daily. Medica l MG tablet 15 Center sucroferric 0 Yes 500mg Q.[id number] Take [address] oxyhydroxid 3-20 [id number] mg by L ukes e 500 mg 18:09: 3D mouth 3 Medica l Chew 15 (three) Center times daily. atorvastati 0 Yes 40mg QD Take [address] [facility] (LIPITOR) 3-20 by mouth Luke s 40 MG 18:09: daily. Medical tablet 15 Center aspirin 81 0 Yes 81mg QD Take [address] MG EC 3-07 by mouth [facility] 04:45: daily. [address] carvediloL 0 Yes 12.5mg Take 12.[address] (COREG) 3-07 mg by [facility] 12.5 MG 04:45: mouth 2 Medical tablet 04 (two) Center times daily with breakfast and dinner. aspirin 81 0 Yes 81mg QD Take [address] MG EC 3-07 by mouth [facility] tablet 04:45: daily. [address] carvediloL 0 Yes 12.5mg Take 12.[address] (COREG) 3-07 mg by [facility] 12.5 MG 04:45: mouth 2 Medical tablet 04 (two) Center times daily with breakfast and dinner. aspirin 81 0 Yes 81mg QD Take [address] MG EC 3-07 by mouth [facility] tablet 04:45: daily. [address] carvediloL 0 Yes 12.5mg Take 12.[address] (COREG) 3-07 mg by [facility] 12.5 MG 04:45: mouth 2 Medical tablet 04 (two) Center times daily with breakfast and dinner. aspirin 81 2021-0 Yes 81mg QD Take [address] MG EC 3-07 by mouth [facility] tablet 04:45: daily. [address] carvediloL 0 Yes 12.5mg Take 12.[address] (COREG) 3-07 mg by [facility] 12.5 MG 04:45: mouth 2 Medical tablet 04 (two) Center times daily with breakfast and dinner. aspirin 81 2021-0 Yes 81mg QD Take [address] MG EC 3-07 by mouth [facility] tablet 04:45: daily. [address] carvediloL 2021-0 Yes 12.5mg Take 12.[address] (COREG) 3-07 mg by [facility] 12.5 MG 04:45: mouth 2 Medical tablet 04 (two) Center times daily with breakfast and dinner. aspirin 81 2021-0 Yes 81mg QD Take [address] MG EC 3-07 by mouth [facility] tablet 04:45: daily. [address] carvediloL 2021-0 Yes 12.5mg Take 12.[address] (COREG) 3-07 mg by [facility] 12.5 MG 04:45: mouth 2 Medical tablet 04 (two) Center times daily with breakfast and dinner. aspirin 81 2021-0 Yes 81mg QD Take [address] MG EC 3-07 by mouth [facility] tablet 04:45: daily. [address] carvediloL 0 Yes 12.5mg Take 12.[address] (COREG) 3-07 mg by [facility] 12.5 MG 04:45: mouth 2 Medical tablet 04 (two) Center times daily with breakfast and dinner. aspirin 81 2021-0 Yes 81mg QD Take [address] MG EC 3-07 by mouth [facility] tablet 04:45: daily. [address] carvediloL 0 Yes 12.5mg Take 12.[address] (COREG) 3-07 mg by [facility] 12.5 MG 04:45: mouth 2 Medical tablet 04 (two) Center times daily with breakfast and dinner. aspirin 81 2021-0 Yes 81mg QD Take [address] MG EC 3-07 by mouth [facility] tablet 04:45: daily. [address] carvediloL Yes 12.5mg Take 12.[address] (COREG) 3-07 mg by [facility] 12.5 MG 04:45: mouth 2 Medical tablet 04 (two) Center times daily with breakfast and dinner. aspirin 81 0 2021- No [id number] 81mg Take 1 [facility] mg chewable 05-23 tablet by it y of tablet 00:00: 04:59 mouth [place] 00 :00 daily for Medical 30 days. Branch clopidogreL 2021-2021- No [id number] 75mg Take 1 [facility] 75 mg 05-23 tablet by ity of tablet 00:00: 04:59 mouth [place] 00 :00 daily for Medical 30 days. Branch isosorbide 2021-2021- No [id number] 30mg Take 1 [facility] mononitrate 05-23 tablet by it y of 30 mg 24 hr 00:00: 04:59 mouth [place] tablet 00 :00 daily for Medical 30 days. Branch lisinopriL 2021- No [id number] 5mg Take 1 Univers 5 mg tablet 05-23 tablet by it y of 00:00: 04:59 mouth [place] 00 :00 daily for Medical 30 days. Branch vitamin b 2021- No [id number] 1{tbl} Take 1 Univers complex-vit 05-23 tablet by it y of miller 00:00: 04:59 mouth [place] c-folic 00 :00 daily for Medical acid 0.8 mg 30 days. Bran ch tablet aspirin 81 2021- No [id number] 81mg Take 1 [facility] mg chewable 05-23 tablet by it y of tablet 00:00: 04:59 mouth [place] 00 :00 daily for Medical 30 days. Branch clopidogreL 2021- No [id number] 75mg Take 1 [facility] 75 mg 05-23 tablet by ity of tablet 00:00: 04:59 mouth [place] 00 :00 daily for Medical 30 days. Branch isosorbide 2021- No [id number] 30mg Take 1 Univers mononitrate 05-23 tablet by it y of 30 mg 24 hr 00:00: 04:59 mouth [place] tablet 00 :00 daily for Medical 30 days. Branch lisinopriL 2021- No [id number] 5mg Take 1 Univers 5 mg tablet 05-23 tablet by it y of 00:00: 04:59 mouth [place] 00 :00 daily for Medical 30 days. Branch vitamin b 2021- No [id number] 1{tbl} Take 1 Univers complex-vit 05-23 tablet by it y of [place] 00:00: 04:59 mouth [place] c-folic 00 :00 daily for Medical acid 0.8 mg 30 days. Bran ch tablet aspirin 81 2021- No [id number] 81mg Take 1 Univers mg chewable 05-23 tablet by it y of tablet 00:00: 04:59 mouth [place] 00 :00 daily for Medical 30 days. Branch clopidogreL 2021- No [id number] 75mg Take 1 [facility] 75 mg 05-23 tablet by ity of tablet 00:00: 04:59 mouth [place] 00 :00 daily for Medical 30 days. Branch isosorbide 2021- No [id number] 30mg Take 1 Univers mononitrate 05-23 tablet by it y of 30 mg 24 hr 00:00: 04:59 [place] tablet 00 :00 daily for Medical 30 days. Branch lisinopriL 2021- No [id number] 5mg Take 1 Univers 5 mg tablet 05-23 tablet by it y of 00:00: 04:59 mouth [place] 00 :00 daily for Medical 30 days. Branch vitamin b 2021- No [id number] 1{tbl} Take 1 Univers complex-vit 05-23 tablet [...] 2-18 02-18 mouth. ity of 17:12: 00:00 [place] 42 :00 Medical Branch aspirin 81 2021- No 81mg Take 81 mg Univers mg chewable -18 -18 by mouth ity of tablet 17:12: 00:00 daily. [place] 42 :00 Medical Branch nitroglycer 2021-[id number] 1 Univers in 0.4 mg 2-18 tablet ity of sublingual 00:00: under the [place] tablet 00 tongue Medical every 5 Branch (five) minutes as needed for Chest pain. nitroglycer 2021-[id number] 1 Univers in 0.4 mg 2-18 tablet ity of sublingual 00:00: under the [place] tablet 00 tongue Medical every 5 Branch (five) minutes as needed for Chest pain. nitroglycer [id number] 1 Univers in 0.4 mg 2-18 tablet ity of sublingual 00:00: under the [place] tablet 00 tongue Medical every 5 Branch (five) minutes as needed for Chest pain. atorvastati 2021- No [id number] 40mg Take 1 Univers n 40 mg 2-18 -21 tablet by ity of tablet 00:00: 04:59 mouth at [place] 00 :00 bedtime Medical for 30 Branch days. carvediloL 2021- No [id number] 6.25mg Take 1 Univers 6.25 mg 2-18 -21 tablet by ity of tablet 00:00: 04:59 mouth 2 [place] 00 :00 (two) Medical times Branch daily with meals for 30 days. NIFEdipine 2021- No [id number] 60mg Take 1 Univers ER 60 mg 2-18 - tablet by ity o f tablet 00:00: 04:59 mouth 2 [place] 00 :00 (two) Medical times Branch daily for 30 days. atorvastati 2021- No [id number] 40mg Take 1 Univers n 40 mg 2-18 -21 tablet by ity of tablet 00:00: 04:59 mouth at [place] 00 :00 bedtime Medical for 30 Branch days. carvediloL 2021- No [id number] 6.25mg Take 1 Univers 6.25 mg 2-18 -21 tablet by ity of tablet 00:00: 04:59 mouth 2 [place] 00 :00 (two) Medical times Branch daily with meals for 30 days. NIFEdipine 2021- No [id number] 60mg Take 1 Univers ER 60 mg 05-22- tablet by ity o f tablet 00:00: 04:59 mouth 2 [place] 00 :00 (two) Medical times [place] daily for 30 days. atorvastati 2021- No [id number] 40mg Take 1 Univers n 40 mg 05-22 tablet by ity of tablet 00:00: 04:59 mouth at [place] 00 :00 bedtime Medical for 30 Branch days. carvediloL 2021- No [id number] 6.25mg Take 1 Univers 6.25 mg 05-22 tablet by ity of tablet 00:00: 04:59 mouth 2 [place] 00 :00 (two) [facility] times [place] daily with meals for 30 days. NIFEdipine 2021- No [id number] 60mg Take 1 Univers ER 60 mg 05-22 tablet by ity o f tablet 00:00: 04:59 mouth 2 [place] 00 :00 (two) [facility] times [place] daily for 30 days. clopidogreL Yes 75mg 75 mg, Univ ers (PLAVIX) 2-17 Oral, ity of tablet 75 15:00: DAILY, [place] mg 00 First dose Medical (after Branch last modificati on) on [place] 05/21/21 at 0900, Until Discontinu ed, Routine morpHINE 2021- No 2mg 2 mg, Slow Un kecia injection 2 05-21 IV Push, ity of mg 13:30: 12:29 ONCE, 1 [place] 00 :00 dose, On Medical [facility] Branch 05/21/21 at 0730, Routine HYDROcodone 2021- No 1{tbl} 1 tablet, Univers -acetaminop 17 -17 Oral, ity of hen (NORCO 01:00: 00:17 [...] Until Discontinu ed, Routine vitamin b Yes [id number] 1{tbl} 1 tablet, Univers complex-vit 2-16 Oral, [...] 0900, Until Discontinu ed, Routine atorvastati Yes [id number] 40mg 40 mg, Univers n (LIPITOR) 2-16 Oral, QHS, it y of tablet 40 03:00: First dose [place] mg 00 on [facility] 05/19/21 at Branch 2100, Until Discontinu ed, Routine NIFEdipine Yes [id number] 60mg 60 mg, U nivers ER tablet 2-16 Oral, BID, ity of 60 mg 02:00: First dose [place] 00 (after Medical last Branch modificati on) on Tue05/19/21 at 2000, Until Discontinu ed, Routine lisinopriL Yes [id number] 5mg 5 mg, Un kecia (PRINIVIL,Z 2-15 Oral, ity of ESTRIL) 20:45: DAILY, [place] tablet 5 mg 00 First dose Me dical on [place] 05/19/21 at 1445, Until Discontinu ed, Routine traMADoL Yes 50mg 50 mg, Univers (ULTRAM) 2-12 Oral, ity of tablet 50 21:59: Q6HPRN, [place] mg 37 Starting Medical on [facility] 05/16/21 at 1559, Until Discontinu ed, Routine, Pain (scale 4-6) aspirin Yes 81mg 81 mg, Univers chewable 2-12 Oral, ity of tablet 81 15:00: DAILY, [place] mg 00 First dose Medical on [facility] 05/16/21 at 0900, Until Discontinu ed, Routine NIFEdipine 0 2022- No 60mg 60 mg, Univ ers ER tablet 2-12 02-15 Oral, ity of 60 mg 15:00: 20:33 DAILY, [place] 00 :49 First dose Medical on Sat [...] 05/15/21 at 1900, Until Discontinu ed, Routine
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 approving Restricted medication : PASHA THOMASI aspirin 2021-0 2021- No 325mg 325 mg, Unive rs tablet 325 05-16 Oral, ity of mg 01:00: 01:57 ONCE, 1 [place] 00 :00 dose, On Medical [facility] Branch 05/15/21 at 1900, Routine nitroglycer 2021-0 Yes .4mg 0.4 mg, Uni vers in 05-16 Sublingual ity of (NITROSTAT) 00:57: , Q5MIN Socrates as sublingual 18 PRN, Medical tablet 0.4 Starting Branc h mg on Tue05/15/21 at 1857, Until Discontinu ed, Routine, Chest pain ondansetron 0 Yes 4mg 4 mg, Slow Univers (ZOFRAN 05-16 IV Push, ity of (PF)) 00:56: Q6HPRN, [place] injection 4 53 Starting Medi yoel mg on Tue Branch 05/15/21 at 1856, Until Discontinu ed, Routine, Nausea and Vomiting (N/V) acetaminoph 0 Yes 650mg 650 mg, Un kecia en 05-16 Oral, ity of (TYLENOL) 00:56: Q6HPRN, [place] tablet 650 38 Starting Medic al mg on Tue Branch 05/15/21 at 1856, Until Discontinu ed, Routine, Pain (scale 1-3), Temp > 38.5 C ondansetron 2021-0 2021- No 4mg 4 mg, Slow Univers (ZOFRAN 05-15 IV Push, ity of (PF)) 23:30: 22:34 ONCE, 1 [place] injection 4 00 :00 dose, On Medi yoel mg Tue Branch 05/15/21 at 1730, MATTHEW morpHINE 2021-0 2021- No 4mg 4 mg, Slow Un kecia injection 4 05-15 IV Push, ity of mg 23:30: 22:34 ONCE, 1 [place] 00 :00 dose, On Medical [facility] Branch 05/15/21 at 1730, STAT iopamidol 2021- No [id number] 100mL 100 mL, Univers (ISOVUE 2-11 -11 Intravenou ity o f 370-500 mL) 22:00: 22:00 s, ONCE, 1 [place] injection 00 :00 dose, On Medica l 100 mL Fri Branch 05/15/21 at 1600, Routine aspirin 81 Yes 81mg QD Take [address] MG EC 5-27 by mouth [facility] tablet 15:07: daily. [address] carvediloL Yes 12.5mg Take 12.[address] (COREG) 5-27 mg by [facility] 12.5 MG 15:07: mouth 2 Medical tablet 20 (two) Center times daily with breakfast and dinner. aspirin 81 Yes 81mg QD Take [address] MG EC 5-27 by mouth [facility] tablet 15:07: daily. [address] carvediloL Yes 12.5mg Take 12.5 [facility] [...] a e 1-17 l 19:15: ergocalcife Yes [id number] Q7D Take Meth ale rol 7-25 50,000 [...] hr 42 l tablet ergocalcife 2019-0 Yes [id number] Q7D Take Meth ale rol 7-25 50,000 [...] hr 42 l tablet ergocalcife 2019-0 Yes [id number] Q7D Take Meth ale rol 7-25 50,000 [...] hr 42 l tablet ergocalcife 2019-0 Yes [id number] Q7D Take Meth ale rol 7-25 50,000 [...] hr 42 l tablet ergocalcife 2019-0 Yes [id number] Q7D Take Meth ale rol 7-25 50,000 st (VITAMIN 15:19: Units by Hospi ta D2) 50,000 42 mouth once l unit a week. capsule multivitami 2019-0 Yes 1{tbl} QD Take 1 Me thodi n 7-[address] (DAILY-LARON 15:19: mouth Hospi ta ORAL) 42 daily. l ergocalcife 2019-0 Yes [id number] Q7D Take Meth ale rol 7-25 50,000 [...] Hospita tablet 42 l ergocalcife 2019-0 Yes [id number] Q7D Take Meth ale rol 7-25 50,000 [...] hr 42 l tablet ergocalcife 2019-0 Yes [id number] Q7D Take Meth ale rol 7-25 50,000 [...] hr 42 l tablet ergocalcife 2019-0 Yes [id number] Q7D Take Meth ale rol 7-25 50,000 [...] hr 42 l tablet ergocalcife 2019-0 Yes [id number] Q7D Take Meth ale rol 7-25 50,000 [...] hr 42 l tablet ergocalcife 2019-0 Yes [id number] Q7D Take Meth ale rol 7-25 50,000 [...] hr 42 l tablet ergocalcife 2019-0 Yes [id number] Q7D Take Meth ale rol 7-25 50,000 [...] 40 MG EC 42 l tablet isosorbide 2018-0 Yes 30mg QD Take 30 mg M ethodi mononitrate 7-[address] (IMDUR) 30 15:19: daily. Hospi ta MG 24 hr 42 l tablet ergocalcife 2019-0 Yes [id number] Q7D Take Meth ale rol 7-25 50,000 st (VITAMIN 15:19: Units by Hospi ta D2) 50,000 42 mouth once l unit a week. capsule ergocalcife 2019-0 Yes [id number] Q7D Take Meth ale rol 7-25 50,000 st (VITAMIN 15:19: Units by Hospi ta D2) 50,000 42 mouth once l unit a week. capsule multivitami 2019-0 Yes 1{tbl} QD Take 1 Me thodi n 7-[address] (DAILY-LARON 15:19: mouth Hospi ta ORAL) 42 daily. l multivitami 2019-0 Yes 1{tbl} QD Take 1 [...] MG 24 hr 42 l tablet doxazosin 2018-0 Yes 4mg Q.5D Take 4 mg Met [...] tablet 00:00: Hospit a 00 l metOLazone 2019-0 Yes TK 1 T [...] Hospita enteric 00 l coated tablet furosemide Yes Take by Meth ale (LASIX) 40 7-[address] mg tablet 00:00: Hospita 00 l aspirin 2018- Yes [facility] (ECOTRIN) 7-10 st 81 MG 00:00: Hospita enteric 00 l coated tablet furosemide Yes Take by Meth ale (LASIX) 40 7-[address] mg tablet 00:00: Hospita 00 l aspirin Yes [facility] (ECOTRIN) 7-10 st 81 MG 00:00: Hospita enteric 00 l coated tablet furosemide Yes Take by Meth ale (LASIX) 40 [...] Atorvastati 2018-0 Yes Memori a n Calcium 10-10 l 10:23: Lisinopril 2018-0 Yes Memoria 7-09 l 10:23: Doxazosin 2018-0 Yes TWICE Memoria 7-09 DAILY l 00:00: Folic 2018-0 Yes DAILY Memoria Acid/Vit B 7- l Complex And 00:00: Freddy n C 00 Hydralazine 2018-0 Yes Q8H Memori a Hcl 7-09 l 00:00: Lactulose 2018-0 Yes DAILY PRN Mem oria 7-09 For l 00:00: Constipati on Lanthanum 2018-0 Yes THREE Memoria Carbonate 7-09 TIMES A l 00:00: DAY Atorvastati 2018-0 Yes AT BEDTIME Memoria n Calcium 7- l 00:00: Nifedipine 2019-0 Yes TWICE Memori a 7-09 DAILY l 00:00: Lisinopril 2019-0 Yes TWICE Memori a 7-09 DAILY l 00:00: Pantoprazol 2019-0 Yes DAILY Memor ia e 7-09 l 00:00: Sennosides/ 2019-0 Yes TWICE Memor ia Docusate 7-09 DAILY l Sodium 00:00: Sevelamer 2019-0 Yes THREE [facility]oria Carbonate 7-09 TIMES A l 00:00: DAY hydrALAZINE 2019-0 Yes 1{tbl} Take 1 Me thodi (APRESOLINE 7-[address] ) 100 MG 00:00: mouth. Hospita tablet 00 l lactulose 2018-0 Yes Take by Metho di (CEPHULAC) 10-[address] 10 gram 00:00: Hospita packet 00 l lanthanum 2019-0 Yes Take by Metho di 1,000 mg 10-[address] powder in 00:00: Hospita packet 00 l NIFEdipine 2018-0 Yes 1{tbl} Take 1 Met hodi XL 7-[address] (PROCARDIA 00:00: mouth. Hospi ta XL) 60 MG 00 l 24 hr tablet NIFEdipine 2018-0 Yes 1{tbl} Take 1 Met [...] 2019-0 Yes Take by Metho di (CEPHULAC) [address] 10 gram 00:00: Hospita packet [...] Immunizations Ordered Filled Immunization Date Status Comments [facility] e Immunization Name Name Influenza High Dose 2021-02-02 Completed Unive rsity of 00:00:00 [facility] Influenza High Dose 2021-02-02 Completed Unive rsity of 00:00:00 [facility] Influenza High Dose 2021-02-02 Completed Unive rsity of 00:00:00 [facility] Influenza High Dose 2021-02-02 Completed Unive rsity of 00:00:00 [facility] SARS-COV-2 COVID-19 2020-07-30 Completed Unive rsity of PFIZER VACCINE 00:00:00 [facility] SARS-COV-2 COVID-19 2020-07-30 Completed Unive rsity of PFIZER VACCINE 00:00:00 [facility] SARS-COV-2 COVID-19 2020-07-30 Completed Unive rsity of PFIZER VACCINE 00:00:00 [facility] SARS-COV-2 COVID-19 2020-07-30 Completed Unive rsity of PFIZER VACCINE 00:00:00 [facility] SARS-COV-2 COVID-19 2020-07-11 Completed Unive rsity of PFIZER VACCINE 00:00:00 [facility] SARS-COV-2 COVID-19 2020-07-11 Completed Unive rsity of PFIZER VACCINE 00:00:00 [facility] SARS-COV-2 COVID-19 2020-07-11 Completed Unive rsity of PFIZER VACCINE 00:00:00 [facility] SARS-COV-2 COVID-19 2020-07-11 Completed Unive rsity of PFIZER VACCINE 00:00:00 [facility] PPD (TB) 2018-03-20 Completed University of 00:00:00 [facility] PPD (TB) 2018-03-20 Completed University of 00:00:00 [facility] PPD (TB) 2018-03-20 Completed University of 00:00:00 [facility] PPD (TB) 2018-03-20 Completed University of 00:00:00 [facility] Influenza Virus 2018-01-20 Completed Universit y of Vaccine - Whole 00:00:00 [facility] Influenza Virus 2018-01-20 Completed Universit y of Vaccine - Whole 00:00:00 [facility] Influenza Virus 2018-01-20 Completed Universit y of Vaccine - Whole 00:00:00 [facility] Influenza Virus 2018-01-20 Completed Universit y of Vaccine - Whole 00:00:00 [facility] Pneumococcal 2014-08-02 Completed University o f Polysaccharide, 00:00:00 [facility] PPSV23 (PNEUMOVAX) Branch Pneumococcal 2014-08-02 Completed University o f Polysaccharide, 00:00:00 [facility] PPSV23 (PNEUMOVAX) Branch Pneumococcal 2014-08-02 Completed University o f Polysaccharide, 00:00:00 [facility] PPS[facility] (PNEUMOVAX) Branch Pneumococcal 2014-08-02 Completed University o f Polysaccharide, 00:00:00 [facility] PPSV23 (PNEUMOVAX) Branch Vital Signs Vital [...] blood 2021-05-23 01:40:00 126 mm[Hg] Univer sity [facility] Diastolic blood 2021-05-23 01:40:00 46 mm[Hg] Unive rsity [facility] Heart rate 2021-05-23 01:40:00 62 /min Universi [facility] Body temperature 2021-05-23 01:40:00 35.67 Priya [facility] [place] [facility] Res[facility] 2021-05-23 01:40:00 16 /min [facility] [place] [facility] Body weight 2021-05-23 01:40:00 67.3 kg Universi [facility] BMI 2021-05-23 01:40:00 26.28 kg/m2 [facility] Oxygen saturation in 2021-05-22 17:16:00 93 /min [facility] Arterial blood by [facility] Pulse oximetry Branch Body height 2021-05-19 19:34:00 160 cm [facility] Systolic blood 2021-07-04 08:10:00 149 mm[Hg] [facility] Diastolic blood 2021-07-04 08:10:00 65 mm[Hg] [facility] Heart rate 2021-07-04 08:10:00 71 /min [facility] Body temperature 2021-07-04 08:10:[address] [facility] Respiratory rate 2021-07-04 08:10:00 18 /min [facility] Oxygen saturation in 2021-07-04 08:10:00 93 /min [facility] Arterial blood by Medical Ce nter Pulse oximetry Systolic blood 2021-07-03 14:23:00 123 mm[Hg] [facility] Diastolic blood 2021-07-03 14:23:00 60 mm[Hg] [facility] Heart rate 2021-07-03 14:23:00 70 /min [facility] Body temperature 2021-07-03 14:23:[address] [facility] Respiratory rate 2021-07-03 14:23:00 18 /min [facility] Oxygen saturation in 2021-07-03 14:23:00 97 /min [facility] Arterial blood by Medical Ce nter Pulse oximetry Body weight 2021-07-03 13:00:[address] [facility] BMI 2021-07-03 13:00:00 23.59 kg/m2 [facility] Systolic blood 2021-07-03 08:18:00 156 mm[Hg] [facility] Diastolic blood 2021-07-03 08:18:00 67 mm[Hg] [facility] Heart rate 2021-07-03 08:18:00 68 /min [facility] Body temperature 2021-07-03 08:18:[address] [facility] Respiratory rate 2021-07-03 08:18:00 20 /min [facility] Oxygen saturation in 2021-07-03 08:18:00 94 /min [facility] Arterial blood by Medical Ce nter Pulse oximetry Heart rate 2021-07-02 10:00:00 72 /min [facility] Systolic blood 2021-07-02 08:00:00 171 mm[Hg] [facility] Diastolic blood 2021-07-02 08:00:00 78 mm[Hg] [facility] Body temperature 2021-07-02 08:00:[address] [facility] Respiratory rate 2021-07-02 08:00:00 20 /min [facility] Oxygen saturation in 2021-07-02 08:00:00 94 /min [facility] Arterial blood by Medical Ce nter Pulse oximetry Body weight 2021-07-02 04:21:[address] [facility] BMI 2021-07-02 04:21:00 24.36 kg/m2 [facility] Systolic blood 2021-07-01 09:15:00 167 mm[Hg] [facility] Diastolic blood 2021-07-01 09:15:00 71 mm[Hg] [facility] Heart rate 2021-07-01 09:15:00 71 /min [facility] Respiratory rate 2021-07-01 09:15:00 14 /min [facility] Oxygen saturation in 2021-07-01 09:15:00 96 /min [facility] Arterial blood by Medical Ce nter Pulse oximetry Body temperature 2021-07-01 09:00:[address] [facility] Systolic blood 2021-06-29 14:24:00 169 mm[Hg] [facility] Diastolic blood 2021-06-29 14:24:00 71 mm[Hg] [facility] Heart rate 2021-06-29 14:24:00 70 /min [facility] Body temperature 2021-06-29 14:24:[address] [facility] Respiratory rate 2021-06-29 14:24:00 20 /min [facility] Oxygen saturation in 2021-06-29 14:24:00 98 /min [facility] Arterial blood by Medical Ce nter Pulse oximetry Systolic blood 2021-06-29 07:46:00 133 mm[Hg] [facility] Diastolic blood 2021-06-29 07:46:00 63 mm[Hg] [facility] Heart rate 2021-06-29 07:46:00 70 /min [facility] Body temperature 2021-06-29 07:46:[address] [facility] Respiratory rate 2021-06-29 07:46:00 20 /min [facility] Oxygen saturation in 2021-06-29 07:46:00 97 /min [facility] Arterial blood by Medical Ce nter Pulse oximetry Systolic blood 2021-06-26 10:15:00 169 mm[Hg] [facility] Diastolic blood 2021-06-26 10:15:00 66 mm[Hg] [facility] Heart rate 2021-06-26 10:15:00 71 /min [facility] Body temperature 2021-06-26 10:15:[address] [facility] Respiratory rate 2021-06-26 10:15:00 16 /min [facility] Oxygen saturation in 2021-06-26 10:15:00 99 /min [facility] Arterial blood by Medical Ce nter Pulse oximetry Systolic blood 2021-06-26 08:15:00 128 mm[Hg] [facility] Diastolic blood 2021-06-26 08:15:00 53 mm[Hg] [facility] Heart rate 2021-06-26 08:15:00 70 /min [facility] Body temperature 2021-06-26 08:15:[address] [facility] Respiratory rate 2021-06-26 08:15:00 9 /min [facility] Oxygen saturation in 2021-06-26 08:15:00 97 /min [facility] Arterial blood by Medical Ce nter Pulse oximetry Body weight 2021-06-25 00:00:[address] [facility] BMI 2021-06-25 00:00:00 25.19 kg/m2 [facility] Body height 2021-06-13 11:09:[address] [facility] Body height 2020-07-24 16:34:[address] [facility] Body weight 2020-07-24 16:34:[address] [facility] BMI 2020-07-24 16:34:00 26.17 kg/m2 [facility] Temperature Oral (F) 2019-02-19 22:00:00 98.3 F [facility] Heart Rate 2019-02-19 22:00:00 [facility] Respitory Rate 2019-02-19 22:00:00 Talisha Suarez Systolic (mm Hg) 2019-02-19 22:00:00 Dickson rial [facility] Diastolic (mm Hg) 2019-02-19 22:00:00 [facility] [place] Height 2019-02-19 11:49:00 [facility] Weight 2019-02-19 11:49:00 [facility] Height 2019-01-26 05:47:00 [facility] [place] Heart Rate 2019-01-26 05:47:00 [facility] Respitory Rate 2019-01-26 05:47:00 Memori al [place] Systolic (mm Hg) 2019-01-26 05:47:00 Dickson rial [facility] Diastolic (mm Hg) 2019-01-26 05:47:00 [facility] Temperature Oral (F) 2019-01-26 05:19:00 101.3 F [facility] Weight 2019-01-26 01:51:00 [facility] Heart Rate 2018-10-11 20:05:00 [facility] [place] Systolic (mm Hg) 2018-10-11 20:05:00 Dickson rial Juanito Diastolic (mm Hg) 2018-10-11 20:05:00 [facility] [place] Temperature Oral (F) 2018-10-11 20:00:00 98.1 F [facility] Respitory Rate 2018-10-11 20:00:00 [facility] Height 2018-10-10 13:16:00 [facility] Weight 2018-10-10 13:16:00 [facility] Procedures Procedure Date / Time Performing Clinician Source Performed EXTERNAL PROVIDER - ADC 2021-10-21 05:01:00 Doctor Unassigned, N o [facility] REFERRAL Name Medical Branch ARRYTHMIA IMPLANT REPORT 2021-07-06 00:00:00 Provider, Default C AIRAM [facility] POCT-GLUCOSE METER 2021-07-04 08:33:00 Logan Russo [facility] CBC (HEMOGRAM ONLY) 2021-07-04 04:37:[address] [facility] BASIC METABOLIC PANEL (7) 2021-07-04 04:37:[address] [facility] MAGNESIUM 2021-07-04 04:37:[address] [facility] PHOSPHORUS 2021-07-04 04:37:[address] [facility] XR CHEST 1 VIEW PORTABLE 2021-07-04 04:30:00 Martinez Ricardo [facility] / BEDSIDE [facility] POCT-GLUCOSE METER 2021-07-03 21:18:00 Russo, Logan Vaca [facility] POCT-GLUCOSE METER 2021-07-03 17:40:00 RussoLogan [facility] SARS-COV2/RT-PCR ([facility] & 2021-07-03 17:24:00 Martinez Ricardo [facility] REF LABS) [facility] POCT-GLUCOSE METER 2021-07-03 16:06:00 Logan Russo [facility] REPORT OF PROCEDURE - 2021-07-03 15:34:23 Angela Loco [facility] ENDOSCOPY URL [facility] COLONOSCOPY 2021-07-03 15:05:00 [facility] TISSUE EXAM 2021-07-03 15:04:00 [facility] COLONOSCOPY,POLYPECTOMY 2021-07-03 14:39:00 AmRowan smith [facility] COLONOSCOPY, WITH 2021-07-03 14:39:00 Amluis [facility] POLYPECTOMY [facility] COLONOSCOPY 2021-07-03 14:00:00 AmaratAngela croft [facility] POCT-GLUCOSE METER 2021-07-03 13:31:00 RussoLogan [facility] COLONOSCOPY 2021-07-03 13:00:00 AmpastoratAngela croft [facility] HEMODIALYSIS INPATIENT 2021-07-03 10:32:[address] [facility] POCT-GLUCOSE METER 2021-07-03 08:44:00 RussoLogan del cid [facility] XR CHEST 1 VIEW PORTABLE 2021-07-03 05:24:00 Davion Martinez [facility] CBC (HEMOGRAM ONLY) 2021-07-03 03:08:[address] [facility] BASIC METABOLIC PANEL (7) 2021-07-03 03:08:[address] [facility] MAGNESIUM 2021-07-03 03:08:[address] [facility] PHOSPHORUS 2021-07-03 03:08:00 [facility]SE METER 2021-07-02 21:26:00 RussoLogan [facility] POCT-GLUCOSE METER 2021-07-02 17:49:00 RussoLogan [facility] POCT-GLUCOSE METER 2021-07-02 12:48:00 RusosLogan [facility] POCT-GLUCOSE METER 2021-07-02 08:33:00 RussoLogan [facility] XR CHEST 1 VIEW PORTABLE 2021-07-02 06:45:00 Davion Martinez [facility] CBC (HEMOGRAM ONLY) 2021-07-02 05:29:[address] [facility] BASIC METABOLIC PANEL (7) 2021-07-02 05:29:[address] [facility] MAGNESIUM 2021-07-02 05:29:[address] [facility] PHOSPHORUS 2021-07-02 05:29:[address] [facility] POCT-GLUCOSE METER 2021-07-01 21:45:00 RussoLogan [facility] POCT-GLUCOSE METER 2021-07-01 17:44:00 RussoLogan [facility] POCT-GLUCOSE METER 2021-07-01 13:26:00 RussoLogan [facility] HEMODIALYSIS INPATIENT 2021-07-01 12:51:[address] [facility] HEMODIALYSIS INPATIENT 2021-07-01 09:16:[address] [facility] POCT-GLUCOSE METER 2021-07-01 08:31:00 Logan Russo [facility] XR CHEST 1 VIEW PORTABLE 2021-07-01 05:38:00 Martinez Ricardo [facility] CBC (HEMOGRAM ONLY) 2021-07-01 05:15:00 [facility]OLIC [facility] (7) 2021-07-01 05:15:[address] [facility] MAGNESIUM 2021-07-01 05:15:00 [facility] 2021-07-01 05:15:00 Davion [facility] POCT-GLUCOSE METER 2021-06-30 21:03:00 Logan Russo [facility] VENOGRAM 2021-06-30 18:06:00 Krzysztof Dodd [facility] POCT-GLUCOSE METER 2021-06-30 17:27:00 Logan Russo [facility] XR ABDOMEN / KUB 1 VIEW 2021-06-30 17:21:00 Rowan Loco [facility] POCT-GLUCOSE METER 2021-06-30 12:24:00 Logan Russo [facility] POCT-GLUCOSE METER 2021-06-30 08:15:00 Logan Russo [facility] CBC (HEMOGRAM ONLY) 2021-06-30 04:40:00 Davion [facility] BASIC METABOLIC PANEL (7) 2021-06-30 04:40:[address] [facility] MAGNESIUM 2021-06-30 04:40:00 [facility] 2021-06-30 04:40:00 Davion [facility] XR CHEST 1 VIEW PORTABLE 2021-06-30 03:46:00 Martinez Ricardo [facility] PREPARE LEUKO-REDUCED RBC 2021-06-29 23:54:[address] [facility] POCT-GLUCOSE METER 2021-06-29 21:53:00 RussoLogan del cid [facility] POCT-GLUCOSE METER 2021-06-29 17:44:00 RussoLogan [facility] POCT-GLUCOSE METER 2021-06-29 14:20:00 Logan Russo [facility] HEMODIALYSIS INPATIENT 2021-06-29 13:25:[address] [facility] POCT-GLUCOSE METER 2021-06-29 08:39:00 Logan Russo [facility] XR CHEST 1 VIEW PORTABLE 2021-06-29 05:20:00 Martinez Ricardo [facility] CBC (HEMOGRAM ONLY) 2021-06-29 04:49:[address] [facility] BASIC METABOLIC PANEL (7) 2021-06-29 04:49:[address] [facility] MAGNESIUM 2021-06-29 04:49:00 [facility] 2021-06-29 04:49:[address] [facility] POCT-GLUCOSE METER 2021-06-28 19:42:00 RussoLogan [facility] POCT-GLUCOSE METER 2021-06-28 17:22:00 RussoLogan [facility] CBC W/PLT COUNT & AUTO 2021-06-28 15:23:00 Niki [facility] CBC W/PLT COUNT & AUTO 2021-06-28 15:23:00 Nathalie Prince [facility] POCT-GLUCOSE METER 2021-06-28 12:31:00 Logan Russo [facility] TRANSFUSE LEUKO-REDUCED 2021-06-28 11:03:00 Martinez Ricardo [facility] RED BLOOD CELLS [facility] PREPARE LEUKO-REDUCED RBC 2021-06-28 10:49:[address] [facility] POCT-GLUCOSE METER 2021-06-28 08:32:00 Logan Russo [facility] XR CHEST 1 VIEW PORTABLE 2021-06-28 04:23:00 Martinez Ricardo [facility] / BEDSIDE [facility] CBC (HEMOGRAM ONLY) 2021-06-28 04:05:00 [facility] BASIC METABOLIC PANEL (7) 2021-06-28 04:05:[address] [facility] MAGNESIUM 2021-06-28 04:05:00 [facility] 2021-06-28 04:05:00 [facility] LEUKO-REDUCED RBC 2021-06-27 23:54:[address] [facility] POCT-GLUCOSE METER 2021-06-27 21:27:00 RussoLogan del cid [facility] POCT-GLUCOSE METER 2021-06-27 17:51:00 RussoLogan del cid [facility] POCT-GLUCOSE METER 2021-06-27 15:02:00 Logan Russo [facility] POCT-GLUCOSE METER 2021-06-27 12:08:00 RussoLogan [facility] POCT-GLUCOSE METER 2021-06-27 08:23:00 Logan Russo [facility] SARS-COV2/RT-PCR ([facility] & 2021-06-27 04:13:00 Martinez Ricardo [facility] REF LABS) [facility] CBC (HEMOGRAM ONLY) 2021-06-27 04:08:[address] [facility] BASIC METABOLIC PANEL (7) 2021-06-27 04:08:[address] [facility] MAGNESIUM 2021-06-27 04:08:[address] [facility] PHOSPHORUS 2021-06-27 04:08:00 [facility] 2021-06-27 04:08:[address] [facility] PROTHROMBIN TIME/INR 2021-06-27 04:08:[address] [facility] XR CHEST 1 VIEW PORTABLE 2021-06-27 03:58:[facility] POCT-GLUCOSE METER 2021-06-26 20:59:00 RussoLogan del cid [facility] HEMODIALYSIS INPATIENT 2021-06-26 19:13:[address] [facility] POCT-GLUCOSE METER 2021-06-26 18:55:00 Russo, Logan Vaca [facility] HEMOGLOBIN AND HEMATOCRIT 2021-06-26 11:31:[address] [facility] POCT-GLUCOSE METER 2021-06-26 11:15:00 RussoLogan [facility] POCT-GLUCOSE METER 2021-06-26 09:16:00 RussoLogan [facility] LASER EXTRACTION,LEAD 2021-06-26 07:30:[address] [facility] TRANSFUSE LEUKO-REDUCED 2021-06-26 06:15:00 Martinez Ricardo [facility] RED BLOOD CELLS [facility] PREPARE LEUKO-REDUCED RBC 2021-06-26 06:01:[address] [facility] CBC (HEMOGRAM ONLY) 2021-06-26 03:25:[address] [facility] BASIC METABOLIC PANEL (7) 2021-06-26 03:25:[address] [facility] MAGNESIUM 2021-06-26 03:25:[address] [facility] PHOSPHORUS 2021-06-26 03:25:[address] [facility] APTT 2021-06-26 03:25:[address] [facility] PROTHROMBIN TIME/INR 2021-06-26 03:25:[address] [facility] XR CHEST 1 VIEW PORTABLE 2021-06-26 01:25:00 Martinez Ricardo [facility] / BEDSIDE [facility] POCT-GLUCOSE METER 2021-06-25 21:46:00 Logan Russo [facility] TYPE AND SCREEN, 2021-06-25 18:55:[address] Dodd [facility] IR TUNNELED CATHETER 2021-06-25 17:45:00 Gurinder Nash [facility] INSERTION [facility] POCT-GLUCOSE METER 2021-06-25 11:18:00 Logan Russo [facility] ECG 12-LEAD 2021-06-25 09:57:06 Unknown, Hl7 [facility] ECG 12-LEAD 2021-06-25 09:57:06 Unknown, 7 [facility] ECG 12-LEAD 2021-06-25 09:57:06 Unknown, 7 [facility] ECG 12-LEAD 2021-06-25 09:56:17 Unknown, 7 [facility] ECG 12-LEAD 2021-06-25 09:56:17 Unknown, 7 [facility] CBC (HEMOGRAM ONLY) 2021-06-25 02:56:[address] [facility] BASIC METABOLIC PANEL (7) 2021-06-25 02:56:[address] [facility] MAGNESIUM 2021-06-25 02:56:[address] [facility] PHOSPHORUS 2021-06-25 02:56:00 Davion [facility] APTT 2021-06-25 02:56:[address] [facility] PROTHROMBIN TIME/INR 2021-06-25 02:56:[address] [facility] XR CHEST 1 VIEW PORTABLE 2021-06-25 02:31:00 Martinez Ricardo [facility] / BEDSIDE [facility] POCT-GLUCOSE METER 2021-06-24 22:02:00 Logan Russo [facility] XR ABDOMEN / KUB 1 VIEW 2021-06-24 18:29:[address] [facility] POCT-GLUCOSE METER 2021-06-24 16:07:00 Logan Russo [facility] POCT-GLUCOSE METER 2021-06-24 12:26:00 Logan Rsuso [facility] HEMODIALYSIS INPATIENT 2021-06-24 11:25:[address] [facility] POCT-GLUCOSE METER 2021-06-24 08:28:00 Logan Russo [facility] CBC (HEMOGRAM ONLY) 2021-06-24 03:01:[address] [facility] BASIC METABOLIC PANEL (7) 2021-06-24 03:01:[address] [facility] MAGNESIUM 2021-06-24 03:01:[address] [facility] PHOSPHORUS 2021-06-24 03:01:00 [facility] 2021-06-24 03:01:[address] [facility] PROTHROMBIN TIME/INR 2021-06-24 03:01:[address] [facility] XR CHEST 1 VIEW PORTABLE 2021-06-24 00:32:00 Martinez Ricardo [facility] / BEDSIDE [facility] POCT-GLUCOSE METER 2021-06-23 20:56:00 Logan Russo [facility] POCT-GLUCOSE METER 2021-06-23 16:10:00 Logan Russo [facility] BASIC METABOLIC PANEL (7) 2021-06-23 12:59:[address] [facility] POCT-GLUCOSE METER 2021-06-23 11:20:00 RussoLogan del cid [facility] POCT-GLUCOSE METER 2021-06-23 07:29:00 Logan Russo [facility] BASIC METABOLIC PANEL (7) 2021-06-23 04:49:[address] [facility] MAGNESIUM 2021-06-23 04:49:00 Davion [facility] PHOSPHORUS 2021-06-23 04:49:00 Davion [facility] CBC (HEMOGRAM ONLY) 2021-06-23 02:41:00 Davion [facility] APTT 2021-06-23 02:41:00 Mary, [facility] PROTHROMBIN TIME/INR 2021-06-23 02:41:00 Mary, [facility] XR CHEST 1 VIEW PORTABLE 2021-06-23 01:19:00 Martinez Ricardo [facility] / BEDSIDE [facility] POCT-GLUCOSE METER 2021-06-22 22:11:00 RussoLogan [facility] POCT-GLUCOSE METER 2021-06-22 18:02:00 Logan Russo [facility] 2D ECHO W/ DOPPLER 2021-06-22 15:55:38 Lupis Erwin CH, I [facility] (CW/PW/COLOR) [facility] BASIC METABOLIC PANEL (7) 2021-06-22 14:30:[address] [facility] POCT-GLUCOSE METER 2021-06-22 12:25:00 Logan Russo [facility] HEMODIALYSIS INPATIENT 2021-06-22 11:44:[address] [facility] OXYGEN SATURATION, 2021-06-22 10:35:00 Lupis Erwin CH, I [facility] BASIC METABOLIC PANEL (7) 2021-06-22 05:37:[address] [facility] CBC (HEMOGRAM ONLY) 2021-06-22 01:34:00 Davion [facility] APTT 2021-06-22 01:34:00 Abel Hernandez [facility] PROTHROMBIN TIME/INR 2021-06-22 01:34:[address] [facility] BASIC METABOLIC PANEL (7) 2021-06-22 01:33:[address] [facility] MAGNESIUM 2021-06-22 01:33:00 Davion [facility] PHOSPHORUS 2021-06-22 01:33:00 Davion [facility] XR CHEST 1 VIEW PORTABLE 2021-06-22 01:05:[address] [facility] / BEDSIDE [facility] POCT-GLUCOSE METER 2021-06-21 21:09:00 RussoLogan [facility] POCT-GLUCOSE METER 2021-06-21 18:58:00 RussoLogan [facility] POCT-GLUCOSE METER 2021-06-21 13:30:00 Logan Russo [facility] BASIC METABOLIC PANEL (7) 2021-06-21 13:29:[address] [facility] PREPARE LEUKO-REDUCED RBC 2021-06-21 03:28:[address] [facility] BASIC METABOLIC PANEL (7) 2021-06-21 03:21:[address] [facility] MAGNESIUM 2021-06-21 03:21:[address] [facility] PHOSPHORUS 2021-06-21 03:21:[address] [facility] CBC (HEMOGRAM ONLY) 2021-06-21 03:21:00 Davion [facility] APTT 2021-06-21 03:21:00 MaryAbel hernandez [facility] PROTHROMBIN TIME/INR 2021-06-21 03:21:00 MaryAbel hernandez [facility] XR CHEST 1 VIEW PORTABLE 2021-06-21 01:34:00 [facility] PREPARE LEUKO-REDUCED RBC 2021-06-20 23:54:00 Art Jiménez [facility] BASIC METABOLIC PANEL (7) 2021-06-20 17:40:[address] [facility] POCT-GLUCOSE METER 2021-06-20 13:33:00 RussoLogan [facility] POCT-GLUCOSE METER 2021-06-20 06:06:00 RussoLogan [facility] SARS-COV2/RT-PCR ([facility] & 2021-06-20 01:20:00 [facility] BLOOD GAS, ARTERIAL 2021-06-20 01:20:00 MaryAbel hernandez [facility] BASIC METABOLIC PANEL (7) 2021-06-20 01:19:00 AhSamia smith I [facility] MAGNESIUM 2021-06-20 01:19:00 Ahmapamela [facility] PHOSPHORUS 2021-06-20 01:19:[address] [facility] CBC (HEMOGRAM ONLY) 2021-06-20 01:19:[address] [facility] APTT 2021-06-20 01:19:00 MaryAbel hernandez [facility] PROTHROMBIN TIME/INR 2021-06-20 01:19:00 [facility] 2021-06-20 01:19:00 Wilner Aponte [facility] XR CHEST 1 VIEW PORTABLE 2021-06-20 01:05:00 Nan Ricardochary [facility] / [facility] PREPARE PLATELETS 2021-06-19 23:55:[address] [facility] PREPARE RBC 2021-06-19 23:54:[address] [facility] MAGNESIUM 2021-06-19 21:32:00 [facility] 2021-06-19 21:32:00 Jersey Costello [facility] PHOSPHORUS 2021-06-19 21:32:00 Jersey Costello [facility] BASIC METABOLIC PANEL (7) 2021-06-19 21:32:[address] [facility] POCT-GLUCOSE METER 2021-06-19 17:55:00 RussoLogan [facility] BLOOD GAS, ARTERIAL 2021-06-19 12:39:00 MaryAbel [facility] BLOOD GAS, ARTERIAL 2021-06-19 11:13:00 MaryAbel hernandez [facility] POCT-GLUCOSE METER 2021-06-19 08:41:00 RussoLogan [facility] TRANSFUSE LEUKO-REDUCED 2021-06-19 07:45:00 Derick Carver [facility] RED BLOOD CELLS [facility] BASIC METABOLIC PANEL (7) 2021-06-19 02:14:00 Samia Tamayo CH I [facility] MAGNESIUM 2021-06-19 02:14:[address] [facility] PHOSPHORUS 2021-06-19 02:14:[address] [facility] CBC (HEMOGRAM ONLY) 2021-06-19 02:14:[address] [facility] APTT 2021-06-19 02:14:00 AmryAbel hernandez [facility] PROTHROMBIN TIME/INR 2021-06-19 02:14:[address] [facility] BLOOD GAS, ARTERIAL 2021-06-19 02:14:[address] [facility] OXYGEN SATURATION, 2021-06-19 02:14:00 Art Jiménez [facility] MEASURED [facility] XR CHEST 1 VIEW PORTABLE 2021-06-19 01:52:00 Martinez [facility] [facility]IDE [facility] POCT-GLUCOSE METER 2021-06-18 23:55:00 Russo, Logan Vaca [facility] PREPARE LEUKO-REDUCED RBC 2021-06-18 23:55:[address] [facility] POCT-GLUCOSE METER 2021-06-18 23:03:00 Russo, Logan Vaca [facility] POCT-GLUCOSE METER 2021-06-18 21:14:00 Russo, Logan Vaca [facility] POCT-GLUCOSE METER 2021-06-18 18:54:00 Russo, Logan Vaca [facility] CBC (HEMOGRAM ONLY) 2021-06-18 18:15:[address] [facility] BASIC METABOLIC PANEL (7) 2021-06-18 18:15:[address] [facility] APTT 2021-06-18 18:15:[address] [facility] PROTHROMBIN TIME/INR 2021-06-18 18:15:00 Abel Hernandez [facility] LACTIC ACID, ARTERIAL 2021-06-18 18:15:00 MaryAbel hernandez CH I [facility] PHOSPHORUS 2021-06-18 18:15:[address] [facility] MAGNESIUM 2021-06-18 18:15:[address] [facility] BLOOD GAS, ARTERIAL 2021-06-18 18:15:[address] [facility] OXYGEN SATURATION, 2021-06-18 18:15:00 Abel Hernandez [facility] RRL CRITICAL LABS 2021-06-18 16:04:00 Mary, Abel [facility] (ABG,NA,K,H&H,GLUCOSE) Medical C enter CALCIUM, IONIZED 2021-06-18 16:04:00 Mary, Abel [facility] BLOOD GAS, ARTERIAL 2021-06-18 16:04:00 MaryAbel hernandez [facility] SODIUM NA-STAT LAB 2021-06-18 16:04:00 Abel Hernandez [facility] POTASSIUM-STAT LAB 2021-06-18 16:04:00 Abel Hernandez [facility] GLUCOSE-STAT LAB 2021-06-18 16:04:00 Abel Hernandez [facility] HGB/HCT (H&H) - STAT LAB 2021-06-18 16:04:00 Mary [facility] PREPARE PLASMA 2021-06-18 15:44:[address] [facility] XR CHEST 1 VIEW PORTABLE 2021-06-18 15:33:00 Abel Hernandez [facility] / BEDSIDE Medical Center OXYGEN SATURATION, 2021-06-18 15:03:00 Abel Hernandez [facility] SURGICALLY OBTAINED 2021-06-18 15:01:35 Logan Russo [facility] CULTURE + GRAM STAIN Medical Kwesi ter FUNGUS CULTURE + SMEAR 2021-06-18 15:01:35 Logan Russo [facility] CULTURE + SMEAR 2021-06-18 15:01:35 Logan Russo [facility] (NON-SPUTUM) [facility] HEMOGLOBIN AND HEMATOCRIT 2021-06-18 14:58:00 Luh Cosby CH I [facility] CBC W/PLT COUNT & AUTO 2021-06-18 14:58:[address] [facility] CBC W/PLT COUNT & AUTO 2021-06-18 14:58:[address] [facility] (CELLAVISION MANUAL DIFF) 2021-06-18 14:58:[address] [facility] BASIC METABOLIC PANEL (7) 2021-06-18 14:57:[address] [facility] MAGNESIUM 2021-06-18 14:57:[address] [facility] CALCIUM, IONIZED 2021-06-18 14:57:00 Mary [facility] PROTHROMBIN TIME/INR 2021-06-18 14:57:00 Mary [facility] APTT 2021-06-18 14:57:00 [facility] 2021-06-18 14:57:00 [facility] POTASSIUM 2021-06-18 14:57:00 Mary [facility] PREPARE PLATELETS 2021-06-18 14:20:[address] [facility] PLATELET COUNT 2021-06-18 13:12:54 [facility] PO[facility]-ACT 2021-06-18 13:08:[address] [facility] RRL CRITICAL LABS 2021-06-18 13:05:56 Max [facility] (ABG,NA,K,H&H,GLUCOSE) [facility] enter CALCIUM, IONIZED 2021-06-18 13:05:56 [place] [facility] FIBRINOGEN 2021-06-18 13:05:56 [facility] 2021-06-18 13:05:56 [facility] PROT[facility]OMBIN TIME/INR 2021-06-18 13:05:56 Max [facility] BLOOD GAS, ARTERIAL 2021-06-18 13:05:[address] [facility] SODIUM NA-STAT LAB 2021-06-18 13:05:[address] [facility] POTASSIUM-STAT LAB 2021-06-18 13:05:[address] [facility] GLUCOSE-STAT LAB 2021-06-18 13:05:56 [facility] HGB/HCT (H&H) - STAT LAB 2021-06-18 13:05:56 Asad Santana HI [facility] TRANSFUSE LEUKO-REDUCED 2021-06-18 12:46:00 Max Asad MARY JO I [facility] PLATELETS [facility] TRANSFUSE LEUKO-REDUCED 2021-06-18 12:45:00 MaxJosemagy [facility] PLATELETS [facility] RRL CRITICAL LABS 2021-06-18 12:22:57 Logan Russo [facility] (ABG,NA,K,H&H,GLUCOSE) Medical C enter BLOOD GAS, ARTERIAL 2021-06-18 12:22:[address] [facility] SODIUM NA-STAT LAB 2021-06-18 12:22:57 Logan Russo [facility] POTASSIUM-STAT LAB 2021-06-18 12:22:57 Logan Russo [facility] GLUCOSE-STAT LAB 2021-06-18 12:22:57 Logan Russo [facility] HGB/HCT (H&H) - STAT LAB 2021-06-18 12:22:57 Logan Russo [facility] POCT-ACT 2021-06-18 12:20:[address] [facility] RRL CRITICAL LABS 2021-06-18 12:17:57 [facility] (ABG,NA,K,H&H,GLUCOSE) Medical C enter BLOOD GAS, ARTERIAL 2021-06-18 12:17:57 Logan Russo [facility] SODIUM NA-STAT LAB 2021-06-18 12:17:57 Logan Russo [facility] POTASSIUM-STAT LAB 2021-06-18 12:17:57 Logan Russo [facility] GLUCOSE-STAT LAB 2021-06-18 12:17:57 [facility] HGB/HCT (H&H) - STAT LAB 2021-06-18 12:17:[address] [facility] MISCELLANEOUS LAB ORDER 2021-06-18 11:59:38 Asad Santana I [facility] PLATELET COUNT 2021-06-18 11:59:38 [facility] FIBRINOGEN 2021-06-18 11:59:38 Max [facility] PROTHROMBIN TIME/INR 2021-06-18 11:59:38 Asad Santana [facility] S [facility] APTT 2021-06-18 11:59:38 Max [facility] POCT-ACT 2021-06-18 11:43:00 Russo [facility] TISSUE EXAM 2021-06-18 11:41:00 Russo, [facility] RRL CRITICAL LABS 2021-06-18 11:40:27 Russo, Logan Vaca [facility] (ABG,NA,K,H&H,GLUCOSE) Medical C enter BLOOD GAS, ARTERIAL 2021-06-18 11:40:27 [facility] SODIUM NA-STAT LAB 2021-06-18 11:40:27 Beth [facility] POTASSIUM-STAT LAB 2021-06-18 11:40:27 Russo [facility] GLUCOSE-STAT LAB 2021-06-18 11:40:27 Beth [facility] HGB/HCT (H&H) - STAT LAB 2021-06-18 11:40:27 Beth Logan [facility] POCT-ACT 2021-06-18 11:15:00 Beth Logan [facility] RRL CRITICAL LABS 2021-06-18 11:13:46 RussoLogan del cid [facility] es (ABG,NA,K,H&H,GLUCOSE) Medical C enter BLOOD GAS, ARTERIAL 2021-06-18 11:13:46 [facility] SODIUM NA-STAT LAB 2021-06-18 11:13:46 Russo, [facility] POTASSIUM-STAT LAB 2021-06-18 11:13:46 Russo, [facility] GLUCOSE-STAT LAB 2021-06-18 11:13:46 Russo, [facility] HGB/HCT (H&H) - STAT LAB 2021-06-18 11:13:46 Russo, [facility] POCT-ACT 2021-06-18 10:47:00 Russo, [facility] RRL CRITICAL LABS 2021-06-18 10:45:20 Russo, [facility] (ABG,NA,K,H&H,GLUCOSE) Medical C enter BLOOD GAS, ARTERIAL 2021-06-18 10:45:20 Russo, [facility] SODIUM NA-STAT LAB 2021-06-18 10:45:20 Russo, [facility] POTASSIUM-STAT LAB 2021-06-18 10:45:20 Russo, [facility] GLUCOSE-STAT LAB 2021-06-18 10:45:20 Russo, [facility] HGB/HCT (H&H) - STAT LAB 2021-06-18 10:45:20 Russo, [facility] POCT-ACT 2021-06-18 10:14:00 Russo, [facility] ANESTHESIA INMCO 2021-06-18 10:03:35 Lydia Marmolejo [facility] TRANSFUSE LEUKO-REDUCED 2021-06-18 09:26:00 Asad Santana [facility] RED BLOOD CELLS [facility] RRL CRITICAL LABS 2021-06-18 08:54:20 [facility] (ABG,NA,K,H&H,GLUCOSE) [facility] enter CALCIUM, IONIZED 2021-06-18 08:54:20 Max [facility] BLOOD GAS, ARTERIAL 2021-06-18 08:54:[address] [facility] SODIUM NA-STAT LAB 2021-06-18 08:54:[address] [facility] POTASSIUM-STAT LAB 2021-06-18 08:54:20 [facility] 2021-06-18 08:54:20 [facility]H&H) - STAT LAB 2021-06-18 08:54:20 Asad Santana [facility] REPAIR,MITRAL VALVE 2021-06-18 07:38:00 Russo, [facility] VALVULOPLASTY,TRICUSPID 2021-06-18 07:38:00 Russo, [facility] STERNOTOMY 2021-06-18 07:38:00 Russo, Logan [facility] NIMCO 2021-06-18 07:38:00 Russo, [facility] ECHOCARDIOGRAM, 2021-06-18 07:38:00 Russo, [facility] TRANSESOPHAGEAL [facility] CBC W/PLT COUNT & AUTO 2021-06-18 05:37:00 [facility] BASIC METABOLIC PANEL (7) 2021-06-18 05:37:00 sarah [facility] MAGNESIUM 2021-06-18 05:37:00 [facility] PHOS[facility]US 2021-06-18 05:37:00 [facility] CBC W/PLT COUNT & AUTO 2021-06-18 05:37:00 [facility] TRANSFUSE LEUKO-REDUCED 2021-06-17 23:31:00 Shiva Jeter [facility] RED BLOOD CELLS [facility] POCT-GLUCOSE METER 2021-06-17 21:28:00 [facility] HEMOGLOBIN AND HEMATOCRIT 2021-06-17 21:16:00 Harjeet [facility] CT ABDOMEN/PELVIS WITHOUT 2021-06-17 17:07:00 Harjeet [facility] IV CONTRAST Medical Center XR ABDOMEN / KUB 1 VIEW 2021-06-17 16:15:00 Harjeet [facility] MAGNESIUM 2021-06-17 15:48:00 [facility] COMPREHENSIVE METABOLIC 2021-06-17 15:48:00 [facility] I [facility] PANEL [facility] HEMOGLOBIN A1C 2021-06-17 15:48:00 [facility] CBC W/PLT COUNT & AUTO 2021-06-17 15:48:00 [facility] DIFFERENTIAL [facility] PROTHROMBIN TIME/INR 2021-06-17 15:48:00 [facility] APTT 2021-06-17 15:48:00 [facility] TYPE AND SCREEN, 2021-06-17 15:48:00 [facility] AUTOMATED [facility] CBC W/PLT COUNT & AUTO 2021-06-17 15:48:00 [facility] DIFFERENTIAL [facility] ECG 12-LEAD 2021-06-17 15:31:19 [facility] HEMODIALYSIS INPATIENT 2021-06-17 08:22:[address] [facility] CBC W/PLT COUNT & AUTO 2021-06-17 04:15:00 Roni [facility] BASIC METABOLIC PANEL (7) 2021-06-17 04:15:00 Samia Tamayo I [facility] MAGNESIUM 2021-06-17 04:15:00 Ahsarah [facility] PHOSPHORUS 2021-06-17 04:15:00 Ahsarah [facility] CBC W/PLT COUNT & AUTO 2021-06-17 04:15:00 Roni [facility] S [facility] POCT-GLUCOSE METER 2021-06-16 23:59:00 Harjeet [facility] POCT-GLUCOSE METER 2021-06-16 18:00:00 Harjeet [facility] [place] CEREBRAL 4 VESSEL 2021-06-16 12:55:00 PortilloEloy [facility] ANGIOGRAM Medical Center PACEMAKER CHECK WITH 2021-06-16 10:00:06 Rosa Maria [facility] REPROGRAMMING [facility] MR BRAIN WITHOUT IV 2021-06-16 09:57:00 Ladarius Jc [facility] CONTRAST [facility] PACEMAKER CHECK WITH 2021-06-16 09:31:48 Rosa Maria [facility] REPROGRAMMING [facility] POCT-GLUCOSE METER 2021-06-16 07:18:00 Harjeet [facility] CBC W/PLT COUNT & AUTO 2021-06-16 04:21:00 Roni [facility] BASIC METABOLIC PANEL (7) 2021-06-16 04:21:00 Samia Tamayo [facility] MAGNESIUM 2021-06-16 04:21:00 Ahmapamela [facility] PHOSPHORUS 2021-06-16 04:21:00 Ahsarah [facility] CBC W/PLT COUNT & AUTO 2021-06-16 04:21:00 Roni [facility] POCT-GLUCOSE METER 2021-06-15 21:28:00 Harjeet [facility] CTA HEART CORONARY WITH 2021-06-15 18:20:00 Roni [facility] CALCIUM EVALUATION Medical Cente r WITHOUT FFR HEPATIC FUNCTION PANEL 2021-06-15 15:18:00 Harjeet [facility] ABORH, MANUAL 2021-06-15 05:54:[address] [facility] PT/APTT 2021-06-15 04:16:00 Roni [facility] CBC W/PLT COUNT & AUTO 2021-06-15 04:16:00 sarah [facility] BASIC METABOLIC PANEL (7) 2021-06-15 04:16:00 Samia Tamayo [facility] MAGNESIUM 2021-06-15 04:16:00 Roni [facility] PHOSPHORUS 2021-06-15 04:16:00 sarah [facility] TYPE AND SCREEN, 2021-06-15 04:16:[address] [facility] CBC W/PLT COUNT & AUTO 2021-06-15 04:16:00 Samia Tamayo [facility] POCT-GLUCOSE METER 2021-06-14 11:09:00 Ladarius Jc [facility] nter POCT-GLUCOSE METER 2021-06-14 07:31:00 Ladarius Jc [facility] nter EEG 12-26 HR CONTINUOUS 2021-06-14 06:25:00 Ladarius Jc [facility] MONITORING WITH VIDEO [facility] CBC W/PLT COUNT & AUTO 2021-06-14 04:05:00 Roni [facility] BASIC METABOLIC PANEL (7) 2021-06-14 04:05:00 Samia Tamayo [facility] MAGNESIUM 2021-06-14 04:05:00 Roni [facility] PHOSPHORUS 2021-06-14 04:05:[address] [facility] CBC W/PLT COUNT & AUTO 2021-06-14 04:05:00 Angel Saenz [facility] POCT-GLUCOSE METER 2021-06-13 17:10:00 Ladarius Jc [facility] nter POCT-GLUCOSE METER 2021-06-13 12:44:00 Ladarius Jc [facility] nter HEPARIN ANTIBODY 2021-06-13 11:25:00 Thom Almodovar [facility] EEG 12-26 HR CONTINUOUS 2021-06-13 11:06:00 Zuhair Ortae [facility] MONITORING WITH VIDEO Medical Ce nter IRON, TIBC, % SAT. 2021-06-13 08:28:00 [facility] r FERRITIN 2021-06-13 08:28:[address] [facility] POCT-GLUCOSE METER 2021-06-13 08:27:00 Mary Kate Gracia [facility] CBC W/PLT COUNT & AUTO 2021-06-13 03:36:00 Samia smith [facility] S [facility] BASIC METABOLIC PANEL (7) 2021-06-13 03:36:00 Samia Tamayo I [facility] MAGNESIUM 2021-06-13 03:36:[address] [facility] PHOSPHORUS 2021-06-13 03:36:[address] [facility] CBC W/PLT COUNT & AUTO 2021-06-13 03:36:00 Angel Saenz [facility] POCT-GLUCOSE METER 2021-06-13 01:48:00 Mary Kate Gracia [facility] HEMODIALYSIS INPATIENT 2021-06-12 23:02:53 Harshil Loving [facility] POCT-GLUCOSE METER 2021-06-12 18:54:00 Mary Kate Gracia [facility] SARS-COV2/RT-PCR ([facility] & 2021-06-12 17:07:00 Martinez Ricardo [facility] REF LABS) [facility] EEG AWAKE AND DROWSY 2021-06-12 12:20:00 Thom Almodovar [facility] CT BRAIN WITHOUT IV 2021-06-12 08:15:00 Angel Saenz [facility] POCT-GLUCOSE METER 2021-06-12 07:20:00 Mary Kate Gracia [facility] CTA BRAIN 2021-06-12 01:53:00 [facility] CAROTID 2021-06-12 01:53:[address] [facility] [address] BRAIN WITHOUT IV 2021-06-12 01:31:00 Janina [facility] CBC W/PLT COUNT & AUTO 2021-06-12 01:07:00 Roni [facility] HIGH SENSITIVITY TROPONIN 2021-06-12 01:07:00 [facility] LACTIC ACID, VENOUS 2021-06-12 01:07:00 [facility] PROTHROMBIN TIME/INR 2021-06-12 01:07:00 [facility] CBC W/PLT COUNT & AUTO 2021-06-12 01:07:00 Anshul Acharya [facility] BASIC METABOLIC PANEL (7) 2021-06-12 00:49:00 Roni [facility] MAGNESIUM 2021-06-12 00:49:00 Ahmad [facility] PHOSPHORUS 2021-06-12 00:49:00 Ahmapamela, [facility] ECG 12-LEAD 2021-06-12 00:43:57 Unknown, 7 [facility] ECG 12-LEAD 2021-06-12 00:43:57 Unknown, 7 [facility] ECG 12-LEAD 2021-06-12 00:43:57 Unknown, 7 [facility] ECG 12-LEAD 2021-06-12 00:40:07 Unknown, 7 [facility] ECG 12-LEAD 2021-06-12 00:40:07 Unknown, 7 [facility] ECG 12-LEAD 2021-06-12 00:39:50 Unknown, 7 [facility] ECG 12-LEAD 2021-06-12 00:39:50 Unknown, 7 [facility] ECG 12-LEAD 2021-06-12 00:39:50 Unknown, 7 [facility] POCT-GLUCOSE METER 2021-06-12 00:35:00 SamiaMary Kate [facility] POCT-GLUCOSE METER 2021-06-11 20:12:00 [facility] POCT-GLUCOSE METER 2021-06-11 16:12:00 [facility] BLOOD CULTURE 2021-06-11 11:47:00 Jocelyne Alejandre [facility] POCT-GLUCOSE METER 2021-06-11 11:17:00 [facility] SteeleEmmett [facility] PACEMAKER CHECK 2021-06-11 10:59:[address] [facility] POCT-GLUCOSE METER 2021-06-11 06:33:00 Samia [facility] BLOOD CULTURE 2021-06-11 04:03:00 Jessica John [facility] CBC W/PLT COUNT & AUTO 2021-06-11 04:03:00 Samia Tamayo [facility] BASIC METABOLIC PANEL (7) 2021-06-11 04:03:00 Samia Tamayo I [facility] MAGNESIUM 2021-06-11 04:03:[address] [facility] PHOSPHORUS 2021-06-11 04:03:00 Roni [facility] CBC W/PLT COUNT & AUTO 2021-06-11 04:03:00 Anshul Acharya [facility] POCT-BLOOD GASES, VENOUS 2021-06-10 22:25:00 [facility] POCT-SODIUM 2021-06-10 22:25:00 Samia [facility] POCT-POTASSIUM 2021-06-10 22:25:00 Samia [facility] POCT-HEMOGLOBIN 2021-06-10 22:25:00 Samia [facility] POCT-HEMATOCRIT 2021-06-10 22:25:00 Ali, Hiba [facility] POCT-GLUCOSE 2021-06-10 22:25:00 [facility] CBC W/PLT COUNT & AUTO 2021-06-10 22:23:00 Jessica John Tyrel [facility] CBC W/PLT COUNT & AUTO 2021-06-10 22:23:00 Jessica John Tyrel [facility] XR CHEST 1 VIEW PORTABLE 2021-06-10 22:14:00 Jessica John [facility] / BEDSIDE [facility] BLOOD CULTURE 2021-06-10 22:08:00 [facility] LACT[facility]ID, VENOUS 2021-06-10 22:07:00 Jessica John [facility] POCT-GLUCOSE METER 2021-06-10 21:20:00 [facility] HEMODIALYSIS INPATIENT 2021-06-10 17:49:[address] [facility] POCT-GLUCOSE METER 2021-06-10 16:22:00 [facility] POCT-GLUCOSE METER 2021-06-10 11:29:00 [facility] POCT-GLUCOSE METER 2021-06-10 07:27:00 [facility] CBC W/PLT COUNT & AUTO 2021-06-10 04:36:00 Samia Tamayo [facility] BASIC METABOLIC PANEL (7) 2021-06-10 04:36:00 Samia Tamayo CH I [facility] MAGNESIUM 2021-06-10 04:36:[address] [facility] PHOSPHORUS 2021-06-10 04:36:[address] [facility] CBC W/PLT COUNT & AUTO 2021-06-10 04:36:00 Anshul Acharya [facility] POCT-GLUCOSE METER 2021-06-09 21:22:00 Haj-Ismail, [facility] POCT-GLUCOSE METER 2021-06-09 16:16:00 Haj-Isakilil, [facility] 2D ECHO W/ DOPPLER 2021-06-09 12:21:49 David Umanzorok [facility] (CW/PW/COLOR) [facility] TRANSESOPHAGEAL ECHO 2021-06-09 09:04:02 [facility] POCT-GLUCOSE METER 2021-06-09 06:11:00 Haj-Ismail, [facility] CBC W/PLT COUNT & AUTO 2021-06-09 03:34:00 Roni [facility] BASIC METABOLIC PANEL (7) 2021-06-09 03:34:00 Samia Tamayo [facility] MAGNESIUM 2021-06-09 03:34:[address] [facility] PHOSPHORUS 2021-06-09 03:34:[address] [facility] CBC W/PLT COUNT & AUTO 2021-06-09 03:34:00 Anshul Acharya [facility] POCT-GLUCOSE METER 2021-06-08 21:03:00 Habernardino-Isakilil [facility] HEMODIALYSIS INPATIENT 2021-06-08 15:21:58 Jersey Costello [facility] COLOR-FLOW MAPPING 2021-06-08 13:42:[address] [facility] CONT WAVE PULSED DOPPLER 2021-06-08 13:42:25 [facility] PTH, INTACT 2021-06-08 10:29:[address] [facility] HEPATITIS B SURFACE 2021-06-08 10:29:00 Real Delgado [facility] HEPATITIS PANEL, ACUTE 2021-06-08 10:29:00 Haj-Ismail, [facility] POCT-GLUCOSE METER 2021-06-08 06:59:[address] [facility] CBC W/PLT COUNT & AUTO 2021-06-08 05:00:00 [facility] BASIC METABOLIC PANEL (7) 2021-06-08 05:00:00 MarenSamia santiago CH I [facility] MAGNESIUM 2021-06-08 05:00:[address] [facility] PHOSPHORUS 2021-06-08 05:00:00 Roni [facility] PROTHROMBIN TIME/INR 2021-06-08 05:00:[address] [facility] VITAMIN B12 2021-06-08 05:00:00 Anshul Acharya [facility] FERRITIN 2021-06-08 05:00:00 Jersey [facility] IRON, TIBC, % SAT. 2021-06-08 05:00:00 Jersey [facility] (WITHOUT FERRITIN) [facility] VITAMIN D, 25-HYDROXY 2021-06-08 05:00:00 Jersey Costello [facility] CBC W/PLT COUNT & AUTO 2021-06-08 05:00:00 Anshul Acharya [facility] US ABDOMEN LIMITED 2021-06-08 04:51:00 Anshul Acharya [facility] SARS-COV2/RT-PCR ([facility] & 2021-06-07 23:43:00 Angel [facility] POCT-GLUCOSE METER 2021-06-07 23:11:[address] [facility] ECG 12-LEAD 2021-06-07 23:06:38 Unknown, Hl7 [facility] ECG 12-LEAD 2021-06-07 23:06:38 Unknown, Hl7 [facility] ECG 12-LEAD 2021-06-07 23:06:38 Unknown, Hl7 [facility] BLOOD CULTURE 2021-06-07 21:48:[address] [facility] BLOOD CULTURE 2021-06-07 21:41:[address] [facility] CBC W/PLT COUNT & AUTO 2021-06-07 21:41:[address] [facility] COMPREHENSIVE METABOLIC 2021-06-07 21:41:00 PatriziaAnshul [facility] VANCOMYCIN LEVEL, RANDOM 2021-06-07 21:41:00 BaileyAnshul knutson [facility] CBC W/PLT COUNT & AUTO 2021-06-07 21:41:[address] [facility] XR CHEST 1 VIEW PORTABLE 2021-06-07 19:59:00 PatriziaAnshul [facility] / BEDSIDE [facility] VASCULAR DIAGRAM -SCAN 2021-06-07 00:00:00 Provider, Judah [facility] CARDIAC CATH REPORT - 2021-06-07 00:00:00 Provider, Judah [facility] [facility] ARRYTHMIA IMPLANT REPORT 2021-06-07 00:00:00 Provider, Judah Sarah [facility] - SCAN Scanning [facility] POCT GLUCOSE (AUTOMATED) 2021-05-22 23:19:00 [facility] POCT GLUCOSE (AUTOMATED) 2021-05-22 17:36:00 [facility] 2021-05-22 13:43:00 [facility] BASIC METABOLIC PANEL 2021-05-22 09:37:00 José Miguel Horn [facility] (NA, K, CL, CO2, GLUCOSE, Medica l Branch BUN, CREATININE, CA) CBC WITH DIFF 2021-05-22 09:37:00 José Miguel Horn [facility] GLUCOSE 2021-05-21 23:41:00 [facility] PROTEIN TOTAL 2021-05-21 23:41:00 [facility] LACTATE DEHYDROGENASE 2021-05-21 23:41:00 Candido Robison [facility] TROPONIN I 2021-05-21 23:41:00 Tameka Mcdaniels [facility] N-TERMINAL PRO-BNP 2021-05-21 23:41:00 José Miguel Horn [facility] POCT GLUCOSE (AUTOMATED) 2021-05-21 23:14:00 [facility] POCT GLUCOSE (AUTOMATED) 2021-05-21 16:58:00 [facility] POCT GLUCOSE (AUTOMATED) 2021-05-21 13:47:00 [facility] XR CHEST 1 VW 2021-05-21 13:06:23 Gt [facility] VITAMIN B12, LEVEL 2021-05-21 12:51:[address] [facility] FOLATE 2021-05-21 12:51:00 Gt [facility] TROPONIN I 2021-05-21 12:51:00 Gt [facility] IRON PANEL 2021-05-21 12:51:00 Gt [facility] VITAMIN D, 25-OH 2021-05-21 12:51:00 Gt [facility] FERRITIN SERUM 2021-05-21 09:32:00 Gt [facility] TROPONIN I 2021-05-21 09:32:00 Gt [facility] HEPATIC FUNCTION PANEL 2021-05-21 09:32:00 Gt becky [facility] ([id number]) (ALB,T.PRO,BILI Medical Branch T,BU/BC,ALT,AST,ALK PHOS) BASIC METABOLIC PANEL 2021-05-21 09:32:00 José Miguel Horn [facility] (NA, K, CL, CO2, GLUCOSE, Medica l Branch BUN, CREATININE, CA) DIFF CONSULT 2021-05-21 09:32:00 Gt [facility] CBC WITH DIFF 2021-05-21 09:32:00 Kory [facility] N-TERMINAL PRO-BNP 2021-05-21 09:32:00 Gt becky [facility] POCT GLUCOSE (AUTOMATED) 2021-05-21 02:22:00 [facility] XR CHEST 1 VW 2021-05-20 22:21:01 [facility] POCT GLUCOSE (AUTOMATED) 2021-05-20 22:14:00 Neil Thomas [facility] PH, BODY FLUID 2021-05-20 22:04:00 Candido Robison [facility] T.PROTEIN BODY FLUID 2021-05-20 22:04:00 Candido Robison [facility] BODY FLUID DIRECT COUNT 2021-05-20 22:04:00 Nemesio Eagle [facility] CYTO PLEURAL FLUID 2021-05-20 22:04:00 Candido Robison [facility] LDH TOTAL BODY FLUID 2021-05-20 22:04:00 [facility] AFB CULTURE 2021-05-20 21:50:00 [facility] BODY FLUID 2021-05-20 21:50:00 Ricki [facility] CULTURE(AEROBIC/ANAEROBIC Medica l Branch ) XR CHEST 1 VW 2021-05-20 19:13:56 [facility] POCT GLUCOSE (AUTOMATED) 2021-05-20 16:59:00 [facility] POCT GLUCOSE (AUTOMATED) 2021-05-20 13:25:00 [facility] LACTATE DEHYDROGENASE 2021-05-20 09:50:00 Holly Redding [facility] BASIC METABOLIC PANEL 2021-05-20 09:50:00 Holly Redding [facility] (NA, K, CL, CO2, GLUCOSE, Medica l Branch BUN, CREATININE, CA) PROTHROMBIN TIME / INR 2021-05-20 09:50:00 Holly Redding [facility] N-TERMINAL PRO-BNP 2021-05-20 09:50:00 Tameka Mcdaniels [facility] POCT GLUCOSE (AUTOMATED) 2021-05-20 01:35:00 Neil Thomas [facility] POCT GLUCOSE (AUTOMATED) 2021-05-19 23:08:00 Neil Thomas Felicia [facility] POCT GLUCOSE (AUTOMATED) 2021-05-19 17:39:00 Neil Thomas Felicia [facility] POCT GLUCOSE (AUTOMATED) 2021-05-19 14:04:00 Neil Thomas Felicia [facility] BASIC METABOLIC PANEL 2021-05-19 11:24:[facility] ([facility], K, CL, CO2, GLUCOSE, Medica l Branch BUN, CREATININE, CA) CBC WITH DIFF 2021-05-19 11:24:00 [facility] o f [facility] N-TERMINAL PRO-BNP 2021-05-19 11:24:00 Tameka Mcdaniels [facility] HEPATITIS B SURFACE 2021-05-19 03:18:00 Baralexandra-Diana, [facility] ANTIBODY [facility] [place] HEPATITIS B SURFACE 2021-05-19 03:18:00 Baranowska-Daphnea, [facility] ANTIGEN [facility] [place] POCT GLUCOSE (AUTOMATED) 2021-05-19 03:11:00 Neil Thomas Felicia [facility] POCT GLUCOSE (AUTOMATED) 2021-05-18 22:43:00 Neil Thomas Uni [facility] POCT GLUCOSE (AUTOMATED) 2021-05-18 17:46:00 Neil Thomas Felicia [facility] POCT GLUCOSE (AUTOMATED) 2021-05-18 17:04:00 Neil Thomas Felicia [facility] BASIC METABOLIC PANEL 2021-05-18 15:05:00 Holly Redding [facility] (NA, K, CL, CO2, GLUCOSE, Medica l Branch BUN, CREATININE, CA) POCT GLUCOSE (AUTOMATED) 2021-05-18 13:20:00 Neil Thomas Felicia [facility] DISCLOSURE AND CONSENT, 2021-05-18 06:01:00 Doctor Unassigned, N o [facility] MEDICAL AND SURGICAL Name Medical [facility] PROCEDURES POCT GLUCOSE (AUTOMATED) 2021-05-17 22:51:00 Ovromero [facility] POCT GLUCOSE (AUTOMATED) 2021-05-17 17:51:00 William [facility] TRANSTHORACIC ECHO (TTE) 2021-05-17 15:04:37 William [facility] POCT GLUCOSE (AUTOMATED) 2021-05-17 14:14:00 Ovromero [facility] PHOSPHORUS 2021-05-17 10:03:00 William [facility] MAGNESIUM 2021-05-17 10:03:00 William [facility] BASIC METABOLIC PANEL 2021-05-17 10:03:00 William [facility] (NA, K, CL, CO2, GLUCOSE, Medica l Branch BUN, CREATININE, CA) CBC WITHOUT DIFF 2021-05-17 10:03:00 William [facility] N-TERMINAL PRO-BNP 2021-05-17 10:03:00 William [facility] POCT GLUCOSE (AUTOMATED) 2021-05-16 22:34:00 William [facility] POCT GLUCOSE (AUTOMATED) 2021-05-16 17:41:00 William [facility] POCT GLUCOSE (AUTOMATED) 2021-05-16 13:39:00 William [facility] MAGNESIUM 2021-05-16 08:09:00 William [facility] TROPONIN I 2021-05-16 08:09:00 William [facility] BASIC METABOLIC PANEL 2021-05-16 08:09:00 William [facility] (NA, K, CL, CO2, GLUCOSE, Medica l Branch BUN, CREATININE, CA) LIPID PANEL ([id number])(TOTAL 2021-05-16 08:09:00 Neil Thomas [facility] CHOLESTEROL, Medical Branch TRIGLYCERIDES, HDL) CBC WITHOUT DIFF 2021-05-16 08:09:00 William [facility] GLYCOSYLATED HEMOGLOBIN 2021-05-16 08:09:00 Thais Rich [facility] (A1C) Medical Branch PHOSPHORUS 2021-05-16 02:06:00 William [facility] TROPONIN I 2021-05-16 02:06:00 William [facility] POCT GLUCOSE (AUTOMATED) 2021-05-16 02:05:00 [facility] COVID-19 (ID NOW RAPID 2021-05-15 22:31:00 Dangelo Ibrahim [facility] TESTING) Medical Branch LAB ONLY COVID 2021-05-15 22:31:00 Singer [facility] INTERPRETATION [facility] XR KNEE <3 VW RIGHT 2021-05-15 22:12:44 Singer Dangelo [facility] CT CHEST PULMONARY 2021-05-15 22:00:00 Dangelo Ibrahim [facility] ANGIOGRAM Medical Branch XR CHEST 1 VW 2021-05-15 20:32:18 Singer [facility] LIPASE 2021-05-15 19:37:00 Singer [facility] MAGNESIUM 2021-05-15 19:37:00 Singer [facility] TROPONIN I 2021-05-15 19:37:00 Singer [facility] THYROID STIMULATING 2021-05-15 19:37:00 [facility] COMP. METABOLIC PANEL 2021-05-15 19:37:00 Dangelo Ibrahim [facility] ([id number]) Medical [place] CBC WITH DIFF 2021-05-15 19:37:00 Singer [facility] GLYCOSYLATED HEMOGLOBIN 2021-05-15 19:37:00 William [facility] (A1C) Medical [place] PROTHROMBIN TIME / INR 2021-05-15 19:37:00 Dangelo Ibrahim [facility] D-DIMER 2021-05-15 19:37:00 Dangelo Ibrahim o f [facility] N-TERMINAL PRO-BNP 2021-05-15 19:37:00 Dangelo Ibrahim [facility] HB ECG ROUTINE & RHYTHM 2021-05-15 19:13:17 Dangelo Ibrahim [facility] NOTICE OF PRIVACY 2021-05-15 18:55:45 Doctor Unassigned, No Univ [facility] CONSENT/REFUSAL FOR 2021-05-15 18:55:20 Doctor Unassigned, No [facility] [place] [facility]REAT[facility] HOSPITAL ADMISSION 2021-05-15 06:01:00 Doctor Unassigned, No Uni [facility] Chest Single View 2019-02-17 00:00:00 [facility] Saurabh rogers Influenza Type A Antigen 2019-02-17 00:00:[address] [facility] oridavid Solomon Screen Influenza Type B Antigen 2019-02-17 00:00:[address] [facility] eugene Solomon Screen Culture & Sensitivity 2019-01-25 00:00:00 Talisha Suarez Chest Pa And Lat (2 2019-01-25 00:00:00 [facility] Anaerobic Blood Culture 2018-10-09 00:00:00 Dickson Solomon Aerobic Blood Culture 2018-10-09 00:00:00 Talisha Suarez Gram Stain 2018-10-09 00:00:00 [facility] Anaerobic Culture 2018-10-09 00:00:00 [facility] Saurabh rogers Plan of Care Planned Activity Planned Date Details Comments Source Future Scheduled 2031-07-[address] [facility] colon (procedure) [code = 710480211] Future Scheduled 2031-07-[address] [facility] 00[facility]00:00 [facility] colon (procedure) [code = 518792047] Future Scheduled 2031-07-[address] [facility] Test 00:00:00 [facility] colon (procedure) [code = 174849523] Future Scheduled 2031-07-[address] [facility] 00:00:00 [facility] colon (procedure) [code = 850660279] Future Scheduled 2031-07-[address] [facility] Test 00:00:00 [facility] colon (procedure) [code = 416840615] Future Scheduled 2031-07-[address] [facility] 00:00:00 [facility] colon (procedure) [code = 674259268] Future Scheduled 2031-07-[address] [facility] Test 00:00:00 [facility] colon (procedure) [code = 786023731] Future Scheduled 2031-07-[address] [facility] 00:00:00 malignant [facility] colon (procedure) [code = 340826704] Future Scheduled 2023-04-[address] [facility] 00:00:00 [facility] cervix (procedure) [code = 206456231] Future Scheduled 2023-04-[address] [facility] 00:00:00 malignant [facility] cervix (procedure) [code = 334588249] Future Scheduled 2023-04-[address] [facility] Test 00:00:00 malignant [facility]oplasm [facility] cervix (procedure) [code = 252982612] Future Scheduled 2023-04-[address] [facility] 00:00:00 malignant neoplasm of [facility] cervix (procedure) [code = 572589452] Future Scheduled 2023-04-[address] [facility] 00:00:00 malignant neoplasm of [facility] cervix (procedure) [code = 572159243] Future Scheduled 2023-04-[address] [facility] 00:00:00 malignant neoplasm of [facility] cervix (procedure) [code = 049855711] Future Scheduled 2023-04-[address] [facility] 00:00:00 malignant [facility]oplasm [facility] cervix (procedure) [code = 964273396] Future Scheduled 2023-04-[address] [facility] 00:00:00 malignant [facility]oplasm [facility] cervix (procedure) [code = 337666413] Future Scheduled 2023-04-[address] [facility] Test 00:00:00 malignant neoplasm of [facility] cervix (procedure) [code = 454807436] Future Scheduled 2023-04-[address] [facility] 00:00:00 [facility] [code = 958838902] Future Scheduled 2023-04-[address] [facility] 00:00:00 [facility] cerv[facility] (procedure) [code = 002079295] Future Scheduled 2023-04-[address] [facility] 00:00:00 [facility] cervix (procedure) [code = 815936397] Future Scheduled 2023-04-[address] [facility] 00:00:00 [facility] cervix (procedure) [code = 151819605] Future Scheduled [address] [...] (2 of 2 - PPSV23)] Future Scheduled 2021-12-03 INFLUENZA VACCINE (#1) [facility] 00:00:00 [code = INFLUENZA Medical Ce nter VACCINE (#1)] Future Scheduled 2021-12-02 HEPATITIS B VACCINES Met [facility] Test 19:59:35 (1 of 3 - 3-dose series) [code = HEPATITIS B VACCINES (1 of 3 - 3-dose series)] Future Scheduled 2021-12-02 COVID-19 VACCINE (#1) [facility] Test 19:59:35 [code = COVID-19 VACCINE (#1)] Future Scheduled 2021-12-02 Screening for [facility] Test 19:59:35 malignant neoplasm of cervix (procedure) [code = 902228613] Future Scheduled 2021-12-02 COLONOSCOPY SCREENING [facility] Test 19:59:35 [code = COLONOSCOPY SCREENING] Future Scheduled 2021-12-02 SHINGLES VACCINES (1 Met [facility] Test 19:59:35 of 2) [code = SHINGLES VACCINES (1 of 2)] Future Scheduled 2021-12-02 BREAST CANCER [facility] Test 19:59:35 SCREENING [code = BREAST CANCER SCREENING] Future Scheduled 2021-12-02 INFLUENZA VACCINE [facility] Test 19:59:35 [code = INFLUENZA VACCINE] Future Scheduled 2021-07-08 COVID-19 VACCINE (1) Met [facility] Test 18:18:56 [code = COVID-19 VACCINE (1)] Future Scheduled 2021-07-08 DIABETES: RETINAL EYE [facility] Test 18:18:56 EXAM [code = DIABETES: RETINAL EYE EXAM] Future Scheduled 2021-07-08 DIABETIC FOOT EXAM [facility] Test 18:18:56 [code = DIABETIC FOOT EXAM] Future Scheduled 2021-07-08 COLONOSCOPY SCREENING [facility] Test 18:18:56 [code = COLONOSCOPY SCREENING] Future Scheduled 2021-07-08 SHINGLES VACCINES (#1) [facility] Test 18:18:56 [code = SHINGLES VACCINES (#1)] Future Scheduled 2021-07-08 BREAST CANCER [facility] Test 18:18:56 SCREENING [code = BREAST CANCER SCREENING] Future Scheduled 2021-07-08 Screening for [facility] Test 18:18:56 malignant neoplasm of cervix (procedure) [code = 628204946] Future Scheduled 2021-07-08 INFLUENZA VACCINE [facility] Test 18:18:56 [code = INFLUENZA VACCINE] Future Scheduled 2021-06-26 COVID-19 VACCINE (1) Met [facility] Test 14:10:19 [code = COVID-19 VACCINE (1)] Future Scheduled 2021-06-26 DIABETES: RETINAL EYE [facility] Test 14:10:19 EXAM [code = DIABETES: RETINAL EYE EXAM] Future Scheduled 2021-06-26 DIABETIC FOOT EXAM [facility] Test 14:10:19 [code = DIABETIC FOOT EXAM] Future Scheduled 2021-06-26 COLONOSCOPY SCREENING [facility] Test 14:10:19 [code = COLONOSCOPY SCREENING] Future Scheduled 2021-06-26 [facility]INES (#[facility]) [facility] 14:10:19 [code = SHINGLES VACCINES (#1)] Future Scheduled 2021-06-26 BREAST CANCER [facility] Test 14:10:19 SCREENING [code = BREAST CANCER SCREENING] Future Scheduled 2021-06-26 [facility] Test 14:10:19 malignant neoplasm of cervix (procedure) [code = 494559587] Future Scheduled 2021-06-26 INFLUENZA VACCINE [facility] 14:10:19 [code = INFLUENZA VACCINE] Future Scheduled 2021-06-26 COVID-19 VACCINE (1) Met [facility] Test 14:10:19 [code = COVID-19 VACCINE (1)] Future Scheduled 2021-06-26 DIABETES: RETINAL EYE [facility] Test 14:10:19 EXAM [code = DIABETES: RETINAL EYE EXAM] Future Scheduled 2021-06-26 DIABETIC FOOT EXAM [facility] Test 14:10:19 [code = DIABETIC FOOT EXAM] Future Scheduled 2021-06-26 COLONOSCOPY SCREENING [facility] Test 14:10:19 [code = COLONOSCOPY SCREENING] Future Scheduled 2021-06-26 SHINGLES VACCINES (#1) M [facility] Test 14:10:19 [code = SHINGLES VACCINES (#1)] Future Scheduled 2021-06-26 BREAST CANCER [facility] Test 14:10:19 SCREENING [code = BREAST CANCER SCREENING] Future Scheduled 2021-06-26 Screening for [facility] Test 14:10:19 malignant neoplasm of cervix (procedure) [code = 827688451] Future Scheduled 2021-06-26 INFLUENZA VACCINE [facility] Test 14:10:19 [code = INFLUENZA VACCINE] Future Scheduled 2021-06-26 COVID-19 VACCINE (1) Met [facility] Test 14:10:19 [code = COVID-19 VACCINE (1)] Future Scheduled 2021-06-26 DIABETES: RETINAL EYE [facility] Test 14:10:19 EXAM [code = DIABETES: RETINAL EYE EXAM] Future Scheduled 2021-06-26 DIABETIC FOOT EXAM [facility] Test 14:10:19 [code = DIABETIC FOOT EXAM] Future Scheduled 2021-06-26 COLONOSCOPY SCREENING [facility] Test 14:10:19 [code = COLONOSCOPY SCREENING] Future Scheduled 2021-06-26 SHINGLES VACCINES (#1) M [facility] Test 14:10:19 [code = SHINGLES VACCINES (#1)] Future Scheduled 2021-06-26 BREAST CANCER [facility] Test 14:10:19 SCREENING [code = BREAST CANCER SCREENING] Future Scheduled 2021-06-26 Screening for [facility] Test 14:10:19 malignant neoplasm of cervix (procedure) [code = 352500959] Future Scheduled 2021-06-26 INFLUENZA VACCINE [facility] Test 14:10:19 [code = INFLUENZA VACCINE] Future Scheduled 2021-06-26 COVID-19 VACCINE (1) Met [facility] Test 14:10:19 [code = COVID-19 VACCINE (1)] Future Scheduled 2021-06-26 DIABETES: RETINAL EYE [facility] Test 14:10:19 EXAM [code = DIABETES: RETINAL EYE EXAM] Future Scheduled 2021-06-26 DIABETIC FOOT EXAM [facility] Test 14:10:19 [code = DIABETIC FOOT EXAM] Future Scheduled 2021-06-26 COLONOSCOPY SCREENING [facility] Test 14:10:19 [code = COLONOSCOPY SCREENING] Future Scheduled 2021-06-26 SHINGLES VACCINES (#1) M [facility] Test 14:10:19 [code = SHINGLES VACCINES (#1)] Future Scheduled 2021-06-26 BREAST CANCER [facility] Test 14:10:19 SCREENING [code = BREAST CANCER SCREENING] Future Scheduled 2021-06-26 Screening for [facility] Test 14:10:19 malignant neoplasm of cervix (procedure) [code = 415302814] Future Scheduled 2021-06-26 INFLUENZA VACCINE [facility] 14:10:19 [code = INFLUENZA VACCINE] Future Scheduled 2021-06-26 COVID-19 VACCINE (1) Met [facility] Test 14:10:19 [code = COVID-19 VACCINE (1)] Future Scheduled 2021-06-26 DIABETES: RETINAL EYE [facility] Test 14:10:19 EXAM [code = DIABETES: RETINAL EYE EXAM] Future Scheduled 2021-06-26 DIABETIC FOOT EXAM [facility] Test 14:10:19 [code = DIABETIC FOOT EXAM] Future Scheduled 2021-06-26 COLONOSCOPY SCREENING [facility] Test 14:10:19 [code = COLONOSCOPY SCREENING] Future Scheduled 2021-06-26 SHINGLES VACCINES (#1) [facility] Test 14:10:19 [code = SHINGLES VACCINES (#1)] Future Scheduled 2021-06-26 BREAST CANCER [facility] Test 14:10:19 SCREENING [code = BREAST CANCER SCREENING] Future Scheduled 2021-06-26 Screening [facility] Test 14:10:19 malignant neoplasm of cervix (procedure) [code = 887130610] Future Scheduled 2021-06-26 INFLUENZA VACCINE [facility] Test 14:10:19 [code = INFLUENZA VACCINE] Future Scheduled 2021-06-26 COVID-19 VACCINE (1) Met [facility] Test 14:10:19 [code = COVID-19 VACCINE (1)] Future Scheduled 2021-06-26 DIABETES: RETINAL EYE [facility] Test 14:10:19 EXAM [code = DIABETES: RETINAL EYE EXAM] Future Scheduled 2021-06-26 DIABETIC FOOT EXAM [facility] Test 14:10:19 [code = DIABETIC FOOT EXAM] Future Scheduled 2021-06-26 COLONOSCOPY SCREENING [facility] Test 14:10:19 [code = COLONOSCOPY SCREENING] Future Scheduled 2021-06-26 SHINGLES VACCINES (#1) [facility] Test 14:10:19 [code = SHINGLES VACCINES (#1)] Future Scheduled 2021-06-26 BREAST CANCER [facility] Test 14:10:19 SCREENING [code = BREAST CANCER SCREENING] Future Scheduled 2021-06-26 Screening for [facility] Test 14:10:19 malignant neoplasm of cervix (procedure) [code = 799481302] Future Scheduled 2021-06-26 INFLUENZA VACCINE [facility] 14:10:19 [code = INFLUENZA VACCINE] Future Scheduled 2021-06-26 COVID-19 VACCINE (1) Met [facility] Test 14:10:19 [code = COVID-19 VACCINE (1)] Future Scheduled 2021-06-26 DIABETES: RETINAL EYE [facility] Test 14:10:19 EXAM [code = DIABETES: RETINAL EYE EXAM] Future Scheduled 2021-06-26 DIABETIC FOOT EXAM [facility] Test 14:10:19 [code = DIABETIC FOOT EXAM] Future Scheduled 2021-06-26 COLONOSCOPY SCREENING [facility] Test 14:10:19 [code = COLONOSCOPY SCREENING] Future Scheduled 2021-06-26 SHINGLES VACCINES (#1) [facility] Test 14:10:19 [code = SHINGLES VACCINES (#1)] Future Scheduled 2021-06-26 BREAST CANCER [facility] Test 14:10:19 SCREENING [code = BREAST CANCER SCREENING] Future Scheduled 2021-06-26 [facility] Test 14:10:19 malignant neoplasm of cervix (procedure) [code = 307308650] Future Scheduled 2021-06-26 INFLUENZA VACCINE [facility] 14:10:19 [code = INFLUENZA VACCINE] Future Scheduled 2021-06-26 COVID-19 VACCINE (1) Met [facility] Test 14:10:19 [code = COVID-19 VACCINE (1)] Future Scheduled 2021-06-26 DIABETES: RETINAL EYE [facility] Test 14:10:19 EXAM [code = DIABETES: RETINAL EYE EXAM] Future Scheduled 2021-06-26 DIABETIC FOOT EXAM [facility] Test 14:10:19 [code = DIABETIC FOOT EXAM] Future Scheduled 2021-06-26 COLONOSCOPY SCREENING [facility] Test 14:10:19 [code = COLONOSCOPY SCREENING] Future Scheduled 2021-06-26 SHINGLES VACCINES (#1) [facility] Test 14:10:19 [code = SHINGLES VACCINES (#1)] Future Scheduled 2021-06-26 BREAST CANCER [facility] Test 14:10:19 SCREENING [code = BREAST CANCER SCREENING] Future Scheduled 2021-06-26 Screening for [facility] Test 14:10:19 malignant neoplasm of cervix (procedure) [code = 360907454] Future Scheduled 2021-06-26 INFLUENZA VACCINE [facility] 14:10:19 [code = INFLUENZA VACCINE] Future Scheduled 2021-06-26 COVID-19 VACCINE (1) [facility] Test 14:10:19 [code = COVID-19 VACCINE (1)] Future Scheduled 2021-06-26 DIABETES: RETINAL EYE [facility] Test 14:10:19 EXAM [code = DIABETES: RETINAL EYE EXAM] Future Scheduled 2021-06-26 DIABETIC FOOT EXAM [facility] Test 14:10:19 [code = DIABETIC FOOT EXAM] Future Scheduled 2021-06-26 COLONOSCOPY SCREENING [facility] Test 14:10:19 [code = COLONOSCOPY SCREENING] Future Scheduled 2021-06-26 SHINGLES VACCINES (#1) [facility] Test 14:10:19 [code = SHINGLES VACCINES (#1)] Future Scheduled 2021-06-26 BREAST CANCER [facility] Test 14:10:19 SCREENING [code = BREAST CANCER SCREENING] Future Scheduled 2021-06-26 Screening for [facility] Test 14:10:19 malignant neoplasm of cervix (procedure) [code = 091882060] Future Scheduled 2021-06-26 INFLUENZA VACCINE [facility] 14:10:19 [code = INFLUENZA VACCINE] Future Scheduled 2021-06-[address] [facility] 00:00:00 (procedure) [code = [facility] [id number]] Future Scheduled 2021-06-[address] [facility] Test 00:00:00 (procedure) [code = [facility] [id number]] Future Scheduled 2021-06-[address] [facility] Test 00:00:00 (procedure) [code = [facility] [id number]] Future Scheduled 2021-06-[address] [facility] Test 00:00:00 (procedure) [code = Medical Center [id number]] Future Scheduled 2021-06-[address] [facility] Test 00:00:00 (procedure) [code = [facility] [id number]] Future Scheduled 2021-06-[address] [facility] Test 00:00:00 (procedure) [code = [facility] 01377099] Future Scheduled 2021-06-[address] [facility] Test 00:00:00 (procedure) [code = [facility] 88590119] Future Scheduled 2021-06-[address] [facility] Test 00:00:00 (procedure) [code = [facility] [id number]] Future Scheduled 2021-06-[address] [facility] Test 00:00:00 (procedure) [code = [facility] 04923302] Future Scheduled 2021-06-[address] [facility] Test 00:00:00 (procedure) [code = [facility] [id number]] Future Scheduled 2021-06-[address] [facility] Test 00:00:00 (procedure) [code = Medical Center 83951526] Future Scheduled 2021-06-[address] [facility] Test 00:00:00 (procedure) [code = Medical Center [id number]] Future Scheduled 2021-06-[address] [facility] Test 00:00:00 (procedure) [code = Medical Center [id number]] Future Scheduled 2021-06-10 COVID-19 VACCINE (1) Met [facility] Test 17:58:22 [code = COVID-19 VACCINE (1)] Future Scheduled 2021-06-10 DIABETES: RETINAL EYE [facility] Test 17:58:22 EXAM [code = DIABETES: RETINAL EYE EXAM] Future Scheduled 2021-06-10 DIABETIC FOOT EXAM [facility] Test 17:58:22 [code = DIABETIC FOOT EXAM] Future Scheduled 2021-06-10 COLONOSCOPY SCREENING [facility] Test 17:58:22 [code = COLONOSCOPY SCREENING] Future Scheduled 2021-06-10 SHINGLES VACCINES (#1) [facility] Test 17:58:22 [code = SHINGLES VACCINES (#1)] Future Scheduled 2021-06-10 BREAST CANCER [facility] Test 17:58:22 SCREENING [code = BREAST CANCER SCREENING] Future Scheduled 2021-06-10 Screening for [facility] Test 17:58:22 malignant neoplasm of cervix (procedure) [code = 074504187] Future Scheduled 2021-06-10 INFLUENZA VACCINE [facility] Test 17:58:22 [code = INFLUENZA VACCINE] Future Scheduled 2021-05-12 COVID-19 VACCINE (1) Met [facility] Test 00:12:28 [code = COVID-19 VACCINE (1)] Future Scheduled 2021-05-12 DIABETES: RETINAL EYE [facility] Test 00:12:28 EXAM [code = DIABETES: RETINAL EYE EXAM] Future Scheduled 2021-05-12 DIABETIC FOOT EXAM [facility] Test 00:12:28 [code = DIABETIC FOOT EXAM] Future Scheduled 2021-05-12 COLONOSCOPY SCREENING [facility] Test 00:12:28 [code = COLONOSCOPY SCREENING] Future Scheduled 2021-05-12 SHINGLES VACCINES (#1) [facility] Test 00:12:28 [code = SHINGLES VACCINES (#1)] Future Scheduled 2021-05-12 BREAST CANCER [facility] Test 00:12:28 SCREENING [code = BREAST CANCER SCREENING] Future Scheduled 2021-05-12 [facility] Test 00:12:28 malignant neoplasm of cervix (procedure) [code = 162684970] Future Scheduled 2021-05-12 INFLUENZA VACCINE Method [facility] [...] Future Scheduled 2021-02-11 COVID-19 VACCINE (1) [facility] Test 13:55:42 [code = COVID-19 VACCINE (1)] Future Scheduled 2021-02-11 DIABETES: RETINAL EYE [facility] Test 13:55:42 EXAM [code = DIABETES: RETINAL EYE EXAM] Future Scheduled 2021-02-11 DIABETIC FOOT EXAM [facility] Test 13:55:42 [code = DIABETIC FOOT EXAM] Future Scheduled 2021-02-11 COLONOSCOPY SCREENING [facility] Test 13:55:42 [code = COLONOSCOPY SCREENING] Future Scheduled 2021-02-11 SHINGLES VACCINES (#1) [facility] Test 13:55:42 [code = SHINGLES VACCINES (#1)] Future Scheduled 2021-02-11 BREAST CANCER [facility] Test 13:55:42 SCREENING [code = BREAST CANCER SCREENING] Future Scheduled 2021-02-11 Screening for [facility] Test 13:55:42 malignant neoplasm of cervix (procedure) [code = 833231402] Future Scheduled 2021-02-11 INFLUENZA VACCINE Method ist [...] - Booster for Pfizer series)] Future Scheduled 2020-12-30 COVID-19 VACCINE (3 [facility] Booster for Pfizer Medical C enter series) [code = COVID-19 VACCINE (3 - Booster for Pfizer series)] Future Scheduled 2020-08-[address] [facility] Medical Center (procedure) [code = 07007271] Future Scheduled 2020-08-[address] [facility] 00[facility]00 measurement [facility] (procedure) [code = 14087247] Future Scheduled 2020-08-[address] [facility] 00[facility]:00 measurement [facility] Center (procedure) [code = 30384405] Future Scheduled 2020-08-[address] [facility] 00[facility]00 measurement [facility] Center (procedure) [code = 88079405] Future Scheduled 2020-08-[address] [facility] 00[facility]:00 measurement [facility] (procedure) [code = 59656180] Future Scheduled 2020-08-[address] [facility] 00:[facility]:00 measurement Medical Center (procedure) [code = 52629062] Future Scheduled 2020-08-[address] [facility] 00:[facility]:00 measurement Medical Center (procedure) [code = 72977112] Future Scheduled 2020-08-[address] [facility] 00:00:00 measurement [facility] (procedure) [code = 30853031] Future Scheduled 2020-08-[address] [facility] 00:00:00 measurement Medical Center (procedure) [code = 82101617] Future Scheduled 2020-08-[address] [facility] 00:00:00 measurement Medical Center (procedure) [code = 32552933] Future Scheduled 2020-08-[address] [facility] 00:00:00 measurement Medical Center (procedure) [code = 20641278] Future Scheduled 2020-08-[address] [facility] 00:00:00 measurement Medical Center (procedure) [code = 21946072] Future Scheduled 2020-08-[address] [facility] 00:00:00 measurement Medical Center (procedure) [code = 06792702] Future Scheduled 2019-11-[address] [facility] ne[facility] of [facility] breast (procedure) [code = 383357155] Future Scheduled 2019-11-[address] [facility] 00:00:00 [facility] breast (procedure) [code = 839343539] Future Scheduled 2019-11-[address] [facility] 00:00:00 malignant neoplasm of [facility] breast (procedure) [code = 733733271] Future Scheduled 2019-11-[address] [facility] 00:00:00 malignant neoplasm of [facility] breast (procedure) [code = 169069073] Future Scheduled 2019-11-[address] [facility] 00[facility]00:00 malignant [facility]oplasm of [facility] breast (procedure) [code = 277683148] Future Scheduled 2019-11-[address] [facility] 00:00:00 malignant neoplasm of [facility] Center breast (procedure) [code = 251327011] Future Scheduled 2019-11-[address] [facility] 00:00:00 malignant neoplasm of [facility] Center breast (procedure) [code = 941743680] Future Scheduled 2019-11-[address] [facility] 00:00:00 malignant neoplasm of [facility] Center breast (procedure) [code = 082849420] Future Scheduled 2019-11-[address] [facility] 00:00:00 malignant neoplasm of [facility] Center breast (procedure) [code = 368337659] Future Scheduled 2019-11-[address] [facility] 00:00:00 malignant neoplasm of [facility] Center breast (procedure) [code = 811463061] Future Scheduled 2019-11-[address] [facility] 00:00:00 malignant neoplasm of [facility] Center breast (procedure) [code = 760503245] Future Scheduled 2019-11-[address] [facility] 00:00:00 malignant neoplasm of [facility] Center breast (procedure) [code = 319779369] Future Scheduled 2019-11-[address] [facility] 00:00:00 malignant neoplasm of [facility] Center breast (procedure) [code = 422336892] Future Scheduled 2018-06-[address] [...] FIRST YEAR if no IPPE)] Future Scheduled 2015-08-[address] [facility] Test 00:00:00 0-64 YRS (2 - PCV) Medical C enter [code = PNEUMOCOCCAL VACCINE 0-64 YRS (2 - PCV)] Future Scheduled 2007-09-05 SHINGLES VACCINES (1 [facility] [...] 00:00:00 examination Medical Center (regime/therapy) [code = 111560761] Future Scheduled 1967-09-05 Urine screening for [facility] 00:00:00 protein (procedure) Medical Center [code = 118813539] Future Scheduled 1967-09-[address] DIAB[address] EYE EXAM [facility] Test 00:00:00 [code = DIABETIC EYE Medical Center EXAM] Future Scheduled 1967-09-[address] [facility] 00:00:00 examination Medical Center (regime/therapy) [code = 684856269] Future Scheduled 1967-09-05 Urine screening for [facility] Test 00:00:00 protein (procedure) Medical Center [code = 870324290] Future Scheduled 1967-09-[address] DIAB[address] EYE EXAM [facility] Test 00:00:00 [code = DIABETIC EYE Medical Center EXAM] Future Scheduled 1967-09-[address] [facility] 00:00:00 examination Medical Center (regime/therapy) [code = 170494452] Future Scheduled 1967-09-05 Urine screening for [facility] Test 00:00:00 protein (procedure) Medical Center [code = 663179269] Future Scheduled 1967-09-[address] DIAB[address]IC EYE EXAM [facility] Test 00:00:00 [code = DIABETIC EYE Medical Center EXAM] Future Scheduled 1967-09-[address] [facility] 00:00:00 examination Medical Center (regime/therapy) [code = 592173597] Future Scheduled 1967-09-05 Urine screening for [facility] Test 00:00:00 protein (procedure) Medical Center [code = 549946078] Future Scheduled 1967-09-[address] DIAB[address]IC EYE EXAM [facility] Test 00:00:00 [code = DIABETIC EYE Medical Center EXAM] Future Scheduled 1967-09-[address] [facility] 00:00:00 examination Medical Center (regime/therapy) [code = 052414411] Future Scheduled 1967-09-05 Urine screening for [facility] Test 00:00:00 protein (procedure) Medical Center [code = 321615594] Future Scheduled 1967-09-[address] DIABETIC EYE EXAM [facility] Test 00:00:00 [code = DIABETIC EYE Medical Center EXAM] Future Scheduled 1967-09-[address] [facility] 00:00:00 examination Medical Center (regime/therapy) [code = 162999804] Future Scheduled 1967-09-05 Urine screening for [facility] Test 00:00:00 protein (procedure) Medical Center [code = 625031860] Future Scheduled 1967-09-[address] DIAB[address] EYE EXAM [facility] Test 00:00:00 [code = DIABETIC EYE Medical Center EXAM] Future Scheduled 1967-09-[address] [facility] 00:00:00 examination Medical Center (regime/therapy) [code = 394536164] Future Scheduled 1967-09-05 Urine screening for [facility] 00:00:00 protein (procedure) Medical Center [code = 184100447] Future Scheduled 1967-09-[address] DIAB[address] EYE EXAM [facility] 00:00:00 [code = DIABETIC EYE Medical Center EXAM] Future Scheduled 1967-09-[address] [facility] 00:00:00 examination Medical Center (regime/therapy) [code = 725939493] Future Scheduled 1967-09-05 Urine screening for [facility] Test 00:00:00 protein (procedure) Medical Center [code = 011014326] Future Scheduled 1967-09-[address] DIAB[address]IC EYE EXAM [facility] 00:00:00 [code = DIABETIC EYE Medical Center EXAM] Future Scheduled 1967-09-[address] [facility] 00:00:00 examination Medical Center (regime/therapy) [code = 859877518] Future Scheduled 1967-09-05 Urine screening for [facility] 00:00:00 protein (procedure) Medical Center [code = 564573093] Future Scheduled 1967-09-05 DIABETIC EYE EXAM [facility] 00:00:00 [code = DIABETIC EYE Medical Center EXAM] Future Scheduled 1967-09-[address] [facility] 00:00:00 examination Medical Center (regime/therapy) [code = 744030867] Future Scheduled 1967-09-05 Urine screening for [facility] 00:00:00 protein (procedure) Medical Center [code = 090249240] Future Scheduled 1967-09-[address] DIABETIC EYE EXAM [facility] 00:00:00 [code = DIABETIC EYE Medical Center EXAM] Future Scheduled 1967-09-[address] [facility] 00:00:00 examination Medical Center (regime/therapy) [code = 029882854] Future Scheduled 1967-09-05 Urine screening for [facility] 00:00:00 protein (procedure) Medical Center [code = 523982099] Future Scheduled 1967-09-[address] DIABETIC EYE EXAM [facility] 00:00:00 [code = DIABETIC EYE Medical Center EXAM] Future Scheduled 1967-09-[address] [facility] 00:00:00 examination Medical Center (regime/therapy) [code = 875939362] Future Scheduled 1967-09-05 Urine screening for [facility] Test 00:00:00 protein (procedure) Medical Center [code = 034263319] Future Scheduled 1967-09-[address] DIABETIC EYE EXAM [facility] Test 00:00:00 [code = DIABETIC EYE Medical Center EXAM] Future Scheduled 1967-09-05 Urine screening for [facility] Test 00:00:00 protein (procedure) Medical Center [code = 149874837] Future Scheduled [address] [facility] 00:00:00 malignant neoplasm of Medica [facility] Center colon (procedure) [code = 402520794] Future Scheduled [address] [facility] 00:00:00 malignant neoplasm of [facility]ica [facility] Center colon (procedure) [code = 868310800] Future Scheduled [address] [facility] 00:00:00 malignant neoplasm of [facility]ica [facility] Center colon (procedure) [code = 702021573] Future Scheduled [address] [facility] 00:00:00 (combo) [code = CT Medical C enter Colonography (combo)] Future Scheduled [address] [facility] 00:00:00 malignant [facility]oplasm of [facility] Center colon (procedure) [code = 510975231] Future Scheduled [address] [facility] 00:00:00 malignant neoplasm of [facility] Center colon (procedure) [code = 486166949] Future Scheduled [address] [facility] 00:00:00 malignant neoplasm of [facility] Center colon (procedure) [code = 761109731] Future Scheduled [address] [facility] 00:00:00 malignant neoplasm of [facility] Center colon (procedure) [code = 789166379] Future Scheduled 1957 Sigmoidoscopy [facility]] [facility] Cent[facility] r Future Scheduled [address] [facility] 00:00:00 (combo) [code = CT Medical C enter Colonography (combo)] Future Scheduled [address] [facility] 00:00:00 malignant neoplasm of [facility] Center colon (procedure) [code = 406972945] Future Scheduled [address] [facility] 00:00:00 malignant neoplasm of [facility] Center colon (procedure) [code = 363538070] Future Scheduled [address] [facility] 00:00:00 malignant neoplasm of [facility] Center colon (procedure) [code = 149403615] Future Scheduled [address] [facility] 00:00:00 malignant neoplasm of [facility] Center colon (procedure) [code = 201634728] Future Scheduled 1957 Sigmoidoscopy [facility]oscopy] [facility] Cent[facility] r Future Scheduled [address] [facility] 00:00:00 (combo) [code = CT Medical C enter Colonography (combo)] Future Scheduled [address] [facility] 00:00:00 malignant neoplasm of [facility] Center colon (procedure) [code = 717398457] Future Scheduled [address] [facility] 00:00:00 malignant neoplasm of [facility] Center colon (procedure) [code = 726207961] Future Scheduled [address] [facility] 00:00:00 malignant neoplasm of [facility] colon (procedure) [code = 589210255] Future Scheduled [address] [facility] 00:00:00 malignant neoplasm of [facility] Center colon (procedure) [code = 844111918] Future Scheduled 1957 [facility]oidoscopy [facility]] [facility] Cent[facility] r Future Scheduled [address] [facility] 00:00:00 (combo) [code = CT Medical C enter Colonography (combo)] Future Scheduled [address] [facility] 00:00:00 malignant neoplasm of [facility] Center colon (procedure) [code = 791534029] Future Scheduled [address] [facility] 00:00:00 malignant neoplasm of [facility] Center colon (procedure) [code = 110447195] Future Scheduled [address] [facility] 00:00:00 malignant neoplasm of [facility] colon (procedure) [code = 242118185] Future Scheduled [address] [facility] 00:00:00 malignant neoplasm of [facility] colon (procedure) [code = 724245159] Future Scheduled 1957 S[facility]oidoscopy [facility]] [facility] Cent[facility] Future Scheduled [address] [facility] 00:00:00 (combo) [code = CT Medical C enter Colonography (combo)] Future Scheduled [address] [facility] 00:00:00 malignant neoplasm of [facility] Center colon (procedure) [code = 479482681] Future Scheduled [address] [facility] 00:00:00 malignant neoplasm of [facility] colon (procedure) [code = 098819584] Future Scheduled 1957 Sigmoidoscopy [facility]code [facility] 00:[facility]oscopy] [facility] Cent[facility] r Future Scheduled [address] [facility] 00:00:00 (combo) [code = CT Medical C enter Colonography (combo)] Future Scheduled [address] [facility] 00:00:00 malignant neoplasm of [facility] Center colon (procedure) [code = 170770765] Future Scheduled [address] [facility] 00:00:00 malignant neoplasm of [facility] Center colon (procedure) [code = 971719283] Future Scheduled 1957 Sigmoidoscopy [facility]code [facility]] Medical Cent[facility] r Future Scheduled [address] [facility] 00:00:00 (combo) [code = CT Medical C enter Colonography (combo)] Future Scheduled [address] [facility] 00:00:00 malignant neoplasm of [facility] Center colon (procedure) [code = 946294988] Future Scheduled [address] [facility] 00:00:00 malignant neoplasm of [facility] Center colon (procedure) [code = 262903730] Future Scheduled 1957 Sigmoidoscopy [facility]code [facility] 00:[facility] S[facility]oidoscopy] Medical Isaele r Future Scheduled [address] [facility] 00:00:00 malignant neoplasm of [facility]ica [facility] Center colon (procedure) [code = 030063335] Future Scheduled [address] [facility] 00:00:00 malignant neoplasm of [facility] Center colon (procedure) [code = 809724148] Future Scheduled [address] [facility] 00:00:00 (combo) [code = CT Medical C enter Colonography (combo)] Future Scheduled [address] [facility] 00:00:00 malignant neoplasm of [facility] Center colon (procedure) [code = 984098287] Future Scheduled [address] [facility] 00:00:00 malignant neoplasm of [facility]ica [facility] Center colon (procedure) [code = 804648679] Future Scheduled 1957 Sigmoidoscopy [facility] S[facility]oscopy] Medical Cash r Encounters Start End Encounter Admission Attending Care Care Encounter Source Date/Time Date/Time Type Type Clinicians Facility Department ID 2021-07-06 Inpatient SHASHANK LOCO [facility] Surgery [id number] [facility] 14:33:12 HARSHINIE 2021-07-06 [facility] [id number] [facility]00 Encounter [facility] 2021-07-06 [facility] Gastro [id number] [facility] 00:[facility]:00 Encounter [facility] 2018-09-18 Outpatient [facility] 9600 [facility] 08:26:04 2021-12-24 2021-12-24 Outpatient R CATRACHO [facility] [id number] [facility] 15:40:00 15:40:00 FRACISCO [id number] [facility] 2021-11-27 2021-11-27 Outpatient ROGER KAUR [facility] [id number] Univers 15:00:00 15:00:00 ROGER ARAUJO [id number] [facility] 2021-11-27 2021-11-27 Outpatient ROGER KAUR [facility] [id number] Univers 15:00:00 15:00:00 ROGER ARAUJO [facility] 2021-11-24 2021-11-24 [facility] [id number] Univers 00:00:00 00:00:00 Fracisco GARCIA [id number] i [id number] [facility] 044 [facility] 2021-11-16 2021-11-16 [facility] [id number] Univers 00:00:00 00:00:00 Fracisco GARCIA [id number] [id number] [phone] Sd dical NAL 044 [facility] 2021-11-10 2021-11-10 Outpatient ROGER KAUR [facility] [id number] Univers 08:00:00 08:00:00 ROGER ARAUJO [facility] 2021-10-21 2021-10-21 Orders Doctor KRZYSZTOF [id number] Univers 00:00:00 00:00:00 Only Unassigned, DEEDEE [id number] [facility] [id number] Socrates as [id number] [address] 2021-10-20 2021-10-20 Telephone [facility] [id number] Univers 00:00:00 00:00:00 Brenda GARCIA [id number] [id number] [phone] Sd dicnh NAL 059 [facility] 2021-08-10 2021-08-10 Telephone Yrn [facility] [id number] 00:00[facility]00 00:00:00 [facility] 2021-08-07 2021-08-07 Outpatient SHASHANK MENDIOLA [facility] [id number] [facility] 00:00:00 00:00:00 NADYA 2021-06-07 2021-07-04 [facility] Uri Umanzor [facility] [id number] 19:44:00 14:34:00 [facility] Clary Ballard, Logan Yao 2021-06-07 2021-07-04 Inpatient ER LOGAN RUSSO [facility] Surgery [id number] [facility] 19:44:00 14:34:00 2021-07-03 2021-07-03 Surgery Beronica [facility] [id number] 15:05:00 16:05:00 Harshinijaden Monteiro s Chamindika Medic [facility] 2021-07-03 2021-07-03 Surgery Beronica [facility] [id number] 15:05:00 16:05:00 Harshinie Cayetano s Chamindika Medic [facility] 2021-07-03 2021-07-03 Anesthesia Mitchel [facility] [id number] 14:49:00 15:35:00 Event [facility] 2021-07-03 2021-07-03 Anesthesia Mitchel [facility] [id number] 14:49:00 15:35:00 Event [facility] 2021-06-30 2021-06-30 Surgery Krzysztof Dodd [facility] [id number] 19:35:00 22:24:00 [facility] 2021-06-30 2021-06-30 Surgery Krzysztof Dodd [facility] [id number] 19:35:00 22:24:00 [facility] 2021-06-26 2021-06-26 Surgery Krzysztof Dodd [facility] [id number] [facility] 07:30[facility]00 11:59:00 [facility] 2021-06-25 2021-06-25 Anesthesia Marissa [facility] [id number] [facility] 23:59:59 23:59:59 Event [facility] 2021-06-25 2021-06-25 Anesthesia Marissa [facility] [id number] [facility] 23:59:59 23:59:59 Event [facility] 2021-06-18 2021-06-18 Anesthesia Asad Santana [facility] [id number] [facility] 07:58[facility]00 14:52:00 Event [facility] 2021-06-18 2021-06-18 Anesthesia Asad Santana [facility] [id number] [facility] 07:58[facility]00 14:52:00 Event [facility] 2021-06-18 2021-06-18 Surgery Logan Russo [facility] [id number] [id number] 08:00:00 14:45:00 [facility] 2021-06-18 2021-06-18 Surgery Logan Russo [facility] [id number] 08:00:00 14:45:00 [facility] 2021-06-16 2021-06-16 Anesthesia Sade Argueta [facility] [id number] [facility] 11:58:00 13:03:00 [facility] 2021-06-16 2021-06-16 Anesthesia Sade Argueta [facility] [id number] [facility] 11:58[facility] 13[facility]03[facility]00 [facility] 2021-06-16 Surgery Donte [facility] [id number] 10:30:00 12:00:00 [facility] 2021-06-16 2021-06-16 [facility] [id number] 10:30:00 12:00:00 [facility] 2021-06-09 2021-06-09 Outpatient BCM BC [id number] [facility] 00:00:00 23:59:00 [facility] 2021-06-07 2021-06-07 Outpatient BCM BC [id number] [facility] 19:44:00 23:59:00 [facility] 2021-06-07 2021-06-07 Orders [facility] [id number] 00:00:00 00:00:00 [facility] 2021-06-07 2021-06-[address] [facility] [id number] [facility] 00:[facility]00 [facility] 2021-06-07 2021-06-07 Orders [facility] [id number] 00:00:00 00:00:00 [facility] 2021-06-07 2021-06-[address] [facility] [id number] [facility] 00:[facility] 00[facility]00 [facility] 2021-05-26 2021-05-26 Telephone [facility] [id number] [facility] 00:[facility]00 00:00:00 [facility] 2021-05-26 2021-05-26 Transition DAKOTA Bennett [id number] [facility] 00:00:00 00:00:00 of Care Rakan DE [place] ROS[place] [id number] it y of [place] 4.2.7.2.686 Anaya tierney [id number] [facility] [address] 2021-05-26 2021-05-26 Telephone [facility] [id number] 00:00[facility]00 00:00:00 [facility] 2021-05-25 2021-05-25 Transition DAKOTA Bennett [id number] [facility] 00:00:00 00:00:00 of Care Rakan DE [place] ROS[place] [id number] it y of [place] 4.2.7.2.686 [facility] [id number] [facility] [address] 2021-05-15 2021-05-22 [facility] Dangelo Ibrahim [facility] [id number] Univers 13:03:00 21:15:00 Encounter Neil Thomas [id number] ity of [place] 4.2.7.2.686 [facility] [id number] [facility] [address] 2021-05-15 2021-05-22 Inpatient X WILLIAM [facility] NILESH [id number] Univers 13:03:00 21:15:00 NEIL ity [facility] 2020-08-28 2020-08-28 Orders Fuentes [facility] [id number] 00:00:00 00:00:[address] [facility] 2020-08-28 2020-08-28 Abstract Fuentes [facility] [id number] 00:00:00 00:00:00 [facility] 2020-08-06 2020-08-06 Telephone Freddie [facility] [id number] 00:00:00 00:00:00 [facility] 2020-08-06 2020-08-06 Documentcalli Frazier [facility] [id number] 00:00:00 00:00:00 [facility] 2020-08-06 2020-08-06 Abstract Freddie [facility] [id number] 00:00:00 00:00:00 [facility] 2020-08-04 2020-08-04 Lulú Frazier [facility] [id number] 00:00:00 00:00:00 [facility] 2020-07-28 2020-07-28 Documentcalli Frazier [facility] [id number] 00:00:00 00:00:00 [facility] 2020-07-28 2020-07-28 [facility] [id number] 00:00:00 00:00:00 [facility] 2020-07-25 2020-07-25 [facility] [id number] 00:00:00 00:00:00 [facility] 2020-07-24 2020-07-24 [facility]at [facility] [id number] 00:00:00 00:00:00 [facility] 2020-07-24 2020-07-24 Document [facility] [id number] 00:00:00 00:00:00 [facility] 2020-07-24 2020-07-24 [facility] [id number] 00:00:00 00:00:00 [facility] 2020-04-16 2020-04-16 Office [facility] [id number] 12:56:21 13:26:21 Visit Pascale Garcia 350.1.13.10 Valentines 4.2.7.2.686 Carmelina [id number] [address] 2019-02-18 2019-02-[address] [id number] Memoria 03:46:00 22:27:00 [facility] 2019-01-26 2019-01-[address] [id number] [facility] 01:39:00 06:10:00 [facility] EMERGENCY DEPT 2018-10-09 2018-10-[address] [id number] Memoria 09:44:00 21:45:00 [facility] Patsy nn 2018-01-22 2018-01-22 Emergency E MHSE MHSE 7532 MH 16:17:00 16:17:00 [facility] l Results Test Description Test Time Test Comments Results Result Comments Source AFB culture + smear (non-sputum) 2021-08-07 10:55:07 Test Item Value Reference Range Interpretation Comme nts Result (test code = 6463-4) No acid-fast bacilli isolated in 42 day s AFB Smear (test code = 89714-8) No acid fast bacilli [facility]-SPUTUM)2021-08-07 10:55:07 Test Item Value Reference Range Interpretation Comments CULTURE (BEAKER) (test No acid-fast bacilli code = 1095) isolated in 42 days AFB SMEAR (BEAKER) No acid fast bacilli (test code = 994) seen Fungus culture + [id number] 01:03:45 Test Item Value Reference Range Interpretation Comments Result (test code = No fungus isolated in 6463-4) 28 days Fungus Smear (test No fungi seen code = 1406) [facility] + [id number] 01:03:45 Test Item Value Reference Range Interpretation Comments Result (test code = No fungus isolated in 6463-4) 28 days Fungus Smear (test No fungi seen code = 1406) [facility] + [id number] 01:03:45 Test Item Value Reference Range Interpretation Comments Result (test code = No fungus isolated in 6463-4) 28 days Fungus Smear (test No fungi seen code = 1406) [facility] + [id number] 01:03:45 Test Item Value Reference Range Interpretation Comments CULTURE (BEAKER) (test No fungus isolated in code = 1095) 28 days FUNGUS SMEAR (BEAKER) No fungi seen (test code = 1406) TISSUE [id number] 12:44:09Surgical Pathology Report Case: [id number] Authorizing Provider: Logan Russo MD Collected: 06/18/2021 11:41 AM Ordering Location: [facility] Received: 06/19/2021 03:44 PM PERIOPERATIVE [...] IS RECOMMENDED. Signing Pathologist Direct Phone Line: [phone] signed by Tom Paige MD on 06/24/2021 at 3:29 [id number], [id number] valvePerformed.The interpretation of this case included the use of immunohistochemistry or special stains.PRASHANT A1Bassam ROMERO AND NORMA JOHNSON, AFBControl Slides Examined: In-house known positive controls were evaluated along with the test tissue. These control slides run alongside of the patients sample show appropriate staining. Internal positive and negative controls when available are evaluated Immunohistochemistry technical testing was performed at [facility], Pathology Laboratory where it was developed [...] qualified to perform high complexity clinical laboratory testing.[facility], Department of Pathology, [address] [place] [address], [facility], Department of Pathology, [address] [place] [address], [facility], Department of Pathology, [address] [place] [address], a. Received in formalin labeled with the patient's information and "mitral valve mass" is a 1.5 cm in length by 0.3 cm in diameter robert-pink tissue, which is submitted in toto in cassette A1.MP (resident)Tissue [id number] 09:50:09 Test Item Value Reference Range Interpretation Comments Case Report (test code Surgical Pathology = 104) Report Case: [id number] Authorizing Provider: NicholaspastoraAngela valdivia Collected: 07/03/2021 03:04 PM MD Brian Ordering Location: [address] Received: 07/06/2021 09:08 AM Service Pathologist: [...] clip x 1 DIAGNOSIS (test code = [id number] 3220) FuZzEwMzNcZnRuYmpcdWMx IHtccnRmMVxlcGljOTYwMV oghzJkCDUmmRXwM0Wkttbb VEbqJL1vNM0irUzaaSEwyM GpVJPoWvPpe7svx053iTMm m3inQAOCsejyzSp1pCisL1 3sg0W5TlunV14hgBUaUVQ6 CZXiCJLwlERpHLVvITC2IA RudFYyA8xfSDCeCZ2hlfmt SPfmLAzoNKGsqES0FPTwdK JfA5ZrAQCoPJwvLKXbtcn6 ToTiFp5eoMXhtSopEQjmRO FtJZBpMCtaPABxPlWxLH0l Z65XR34qGKFCW2EJZIVECW cVUNFANY8FR9i5AMTyezHt LSAgVFVCVUxBUiBBREVOT0 8YEOHbcpzxRVNtIa7zH43Y G81aDTYHH8bIN2ILV5JPTW wFAnDFM2yRLHybZooRZJAO DzpkJHBcJO2yLZ8ZCVEMME lXGRNJEDoCDI9JOoVCFcWY ROETJLVRFKJDDT3UAQAjsH FyICAtICBORUdBVElWRSBG J5NyPEmLQQ0AFvOTANBZUV LGNUIOJODhB2DdTWBZFTeU QP2XZBocYTEioVGwPXNsEQ PDPH9ADCOLMNrULQ6WU7UL GtECGqayYM7NPGZcTRBWR3 BTWTpccGFyICAtICBNVUxU SVBMRSBGUkFHTUVOVFMgT0 GkATHGBAaZHiNZUFVIQ68C XHBhciAgLSAgTkVHQVRJVk ZoYs3ESGqHX0pvR6KGAWAo FFyHLFrDI4yFCY7UXH6MDQ eNBpQNG1dsnYUjEHQwtwFw mXYkZAEpSBUVEN3MXVPUGt VLL8JMLzFGOSZLTChABJNK RV6VG5l5BEGgciMbZFKzJL HJGVaPGSEiRfVIK81NGpTW LD3YEFEMUySKPDTaZFWOYi 6LXElvMVWrRJ1hYG3KJ9JU SVZFIEZPUiBISUdILUdSQU CKKVTKI9VJOISPUURPHfWS AVbZI66NMxVGYYRjjw63XG A6LsMjt5S4ZZG5PIXuGDQv k9vnJPFjbNXqClToZcOgQf CmAnloxLFkQRIsQvUon0qm a403hBXox1udYJFzPoF8vX PoSZKvrLYnQ763QGEsUDmm u6niz8GsXVVbwHKxd6O3OM MNhjzpaHb1gMliH21hj2J6 OhffA6lcYMOeBGXaA4AkHW 8gPLBiXqe8NJJ4UUG9BXGf ZLExZ0FxCV0jWDRgmLLhDC v2s7ltrXcaKBAoKPD5l9sj CCjjngDcYW0amq4goWd7m9 xjczEgRGVmYXVsdCBQYXJh K5SrbKfuPi5eaEp6sFlsKu iaOAD6Fmq4CQ4wfw11kuc9 xZdePZJaipovEhR6BTakQM IefnqnLCd0AIspXSCtwPN5 TWBxpQUwW8BmJGIyRS4sye n9PRA0JUvnARJdLcV9JHCj aBLzRXBdlIoaLQqsh511UD K3JhTbWU6nS0Tdl1B3aL9r aXRcZGVmdGFiNzIwXGZvcm 8mnWRnHQfdm4IhEMA0wmQ2 hDJadJCoUHEhOfG2EWfvLG 9esp43QYAoONT4mk6qqVGy bFwvydWncKPoPWccU4SzRN Loj912JFGoD7QdWCOwt6W1 plNvCrIiUMLawYP4lhR9EW AeLP1bfkhif9viURjrLKot FFRihjI3fuZ5QFUosKRoL6 AhmQ4aAMFfTK0miqguh9yr XSH0NMqePUOuMTX2BdWhBK Gtg2Hzynn0KcYum0JdzIRp FCglU51uh357VQGameAfN8 xwbGFpblxwbGFpblxmMFxm sxZ2SJUmMWjumxcmAHJnRQ ydM9wxCvSnCVKiwSqtDXcb o8BgIZQgLHBeNmGviKBaIK HtLgr1DWTamJDsWHIkKoZa O8nthvwyMtTTYYAik7vvU7 ivwZFDgGGgJ0KeZAnmzaOz GFsxPAdqRHHrFGE8BZ0pBH EzDGUqff98 CPT Code(s) (test code g7ublMAcITMnyTZ3XlMnQL = 3357) Rcg6uvz0CvwBRbqIKrTCfk mMOqxqCdad60wLE4mN56WZ 1yOSYbOeK5THCukcZ9Vpi1 MUNwJTScfQAeV496p8ryg0 ziaiLgjBB2yTrfKKDvfmag UmL7KKqiWZKatnfzUNx4ZW paINIwuKC6PIEdnOTiN9Yl UJWpEJ2wlaz3KUS0NIpmAQ WjUcQ8BVEwbZHiKUQdjZeh DDjsp905REG3CoKmSIRiak ZqrJkerY4yMvXdBIZ0IBGu HRc6HAGitc9= CLINICAL HISTORY (test x7ocgNHmLYWmrEA9UcLrMR code = 3356) Bxi4qcj6ZqmTCpgQSnRXxs pWZlgxGjgi94uOB0xF89DF 0wUEIuIwO7GMQjvcL6Eqb2 IWGkOMUqiXYdR303y9mht1 lbnnHtwUH1JIZkSBCsL3Xq TB5iXSPyeTCaJ11icTEuKY C0ENSxYRQjmISwGVGkQUC2 OWEkyAVtN6zdTZMqNX6wjh tiBLpuZQpgIDEgdIF0FGBg qZGyN6FfRNOxAApmHHJehu i2RzHwJi7rhSIjoTwgMBzy YXJkXHJpMVxwbGFpblxmcz VtFSHvRUBBvm0zAXSnGzll wGMeC7hbTA3bsMjyUUL2xi GeSJFvQymyYCFztq8qLZYc WaklmWRmN1wbVC0gbIkpJG F5sKZtZGMgtz3= GROSS DESCRIPTION (test t4wzkDOzOXGwtHIXGNWiLy code = [id number]) boqjHoZYUkrBJfB7Eeuzjy HUodYK1bJE3pyUteiEOdaD HqZY9PVJZjFdSuPLLkrGXo qeNnOhIiFGIoaXYczFQ0MA ExJK6bcbsnYYoaCGloODXz erM6JWCweAIwC0WtWGFaBZ 8hvlziMWX4LAjqbZ9uqpGS ZldxUx9isXJmjBlsIzHvIo NoYXJzZXQwXGZuaWwgQXJp ZAn1pE5JKdhiD81tb3W4Mr s4TMVyKSUiB0PoUW5vEALt jMUyG45XOumeABS7ZPAOLk ynDUOpXY4Lx2afMTClsNKy APL7PJuvgXLeACObWJSlBR a3OUMwDFhnjMDqLP4fkXhf HdjnpUgot2PhpQUlXWuvBU BcSVRmUNsjCQSsGS3BVrTh BTnLAthaFVnjCkC2YJg1OU AMJcKoKgNlEqgrQYN1TXlt ODm5UFz4SKrCSyH2CMX8FR SwDJqjFICkWspvOQv3HKPb XFxmIEFyaWFsIFxcZmwgXF elU41hoHulmQ6zBG9qGY6o kYRdUFKvfO9zQK9lI8ImkZ 0uXHBhciANClxlcGljTmVz dERvYzEgDQpcbHRycGFyXG xpbjBccmluMCANClxsdHJj aFxjZjFcZnMyMCBSZWNlaX WvQOZaozBfj0BiDDvttoAw YWJlbGVkIHdpdGggdGhlIH ZdxBfqkpXiG4O0ucGgDE5a TWRoPTYiK4GnPLGqI19hND DbzJ3wLFOwCZ3lEYd9DFFh RHPmXcohdQ1agFWgXXDwbD 8fVDPlB7XyLbIaj00neJU5 qbEwByJsCVHnkp3uaU5xBI Jsew3oGWCkh1G5ISDth1R3 XAVyQV21FVtvBD1xABjlIR 4xIGNtLCAwLjYgeCAwLjMg rEUtYdPfY38jBlLwVIfbOR FyWWLkzDWkYJccOCR7Ni3f tJIiYPXxsrW9r9YcZXcrIY ZfWajaPBCwRTqnlRAxWX1O GGXvYUwejlXtGT4EIMVjMB ccCZRakGLOQIZ3TM3xMRtp mCEwxmmmIWUvX4RfT9Wusi YqwZDvYXHdsePex5yvVYT9 XHNsbXVsdDBcZnMxNlxwYX D5BYd2IBexZKDnL5PeJ5Bl GHagRTQ0YLWvHuXmGCNbFK FWRbPgIfEmUbF2Bai5XtDu NBp2UKypR6TPUCGdLDA8XN B3HCQ5RbH7NYd6ELSRLa3h ODXyMHV4EtP5EMK3VpK9WY xcdCAyIFxcZiBBcmlhbCBc JTJxTRvkiiI8YSOgKEYasA bklU6lLl7yPC4hbPFyBOKt pQ0eSZ7eXbungMMdDQYbID 7qdF0dEmorIZKiULrdTJBf W41si9PKl0ZbUV5BKUb2jy BhetubuO9wUYItziXyQMpr gBClR1kkL1VyDFXsBsClAu OxYAk8MIDdrY1rPk3jiLHn oT5nhGBrVSpfXZK1jVIjOI FnFXJkUTSlZU03HOdJHNAa bmFtZSwgbWVkaWNhbCByZW NvcmQgbnVtYmVyIGFuZCBc jOdbDjUnHBw2M7OvqTroFC Ibj6burq2bzNkoeENjx5We ftKlsscyEJXkQZMgs77raI R2hcOoJqAldZj6yRZoRXV4 YO2gfVxvvoagyAWlVNx0qS UbAHMaWjAayNjlz8QzEYuz LjQgeCAyLjEgeCAwLjQgY2 9mmL3aTNhvjjGnTBHdON7p IHMnULSxnHQlkH9kwaXdxb BdbPEvmWK1LLOixB9xsC95 jbGtztMQCK6uyUGhSS3PRO BhciANClxjZjBcZnMyMiAN ClxwbGFpblxlcGljTmVzdE LaKlDduTydvM98ELZxiVJi PDX7LP7nPPHrxulnIEDhHZ OgMPV7HHdzvX43kWBhPHEw YJCcvQJhzC9Hn4bjREYoqF ZuMKL8EOvwgMHeWAZdQYGk FRolVsGzY8QFFZWyWiRtFB W9WIJcARs8QNs4RY8APtXx LKBaRXDxMgH1CTVcPKr6EP jxZQ1HKMT0Uha9ZGP9VQF9 NTMyOCBcXHQgMiBcXGYgQX QsANpaSXymkDRgLA4qxFat ggQ1JKKlUEtsAFOvJTLzeM irSWIIw3miihCtJHHtR6g4 M1DjS0TcDLblVs2dzSDhWN 5VSHTqqXEUDLS2DC6oCOWR ClxsdHJwYXJcbGluMFxyaW 2cOT7JZTc6uvKgUXLrQKwb sgLhVCVyD1UqaoGsOWwjBV Zrkr2wySiqHVvpPfKlRXSo r0n4iRM4zCAfjWF7aYNsjA bdOfGeDF8wyRAlGZ7xSPqm OZgnkdUvv6LeQW40lGDvns CmvcQvOPF9KaIhFBrnYZHv k9w7nTozA30iz01sllapbV GfBNUnET4ibZ4kKkDigsGy H99vl1uswVVyu2JlvWBxyT lwbGUgdGFuLXBpbmssIHBl ADYiB4SpSCOhBHAfj1G5MT Xdv7M4FDCgDd68TYjlSy7k CLyhYM83KIAwMRivBSKlH7 RdM3W3RUfjICWIrAXyt1Bx S1hmCR0pqDCug3PovEi2bF VyAIbtBTKvsT6zmE6kZfQi XHBhciANClxwYXIgDQpcY2 YnENCaAqZdQDmxxXawgF0c JMBzN99uk3KVc2SjPGFoBJ nlw5gyxZqsb6HxhNDgNUth FPOwnUNkZUebhN4aNmNai7 dvmCy3CBspxnH3NVVdsx2A VdvyPpspwNxvl8MjuBPlJI osLMCfYQAxQEonTMSuAF0J TmKpGBwNBejjLBcgJzK1MS w3VJHIBiOsBzUbKpsuTUD2 YcSkDWw4ZLe5VKqYKdP6JT U5RLOgCyAyIIPxDdurZOp9 IDIgXFxmIEFyaWFsIFxcZm ikOReqB90aMzAhCaacdYIl caEEPoZAn6z3aBjgM71un9 3hQOKYhrThq1BxkjFrKojp VSIdLTyuFJEgD56zw4HUt8 ViGB3FWMf3hvHaiumrcP4l JPUcosWjNVohpYSfA0bdE9 MrNLGmPwCdTpCkJGu9GHCs qE1sWj8auWTrtX9rwBYtXG knJYA0yAGpWELlLOUgSLCs EA08HIaZUACmhiCnYGjtzD VkaWNhbCByZWNvcmQgbnVt YmVyIGFuZCBcdTgyMjAgXC b4V4BzrSldIBKnz4pwqz05 aqScj5KypqUoVZJnwOArYA 0lDpvanA62XVMlJMLrZRYq fRdsCKqiYxDbirQhI11ak1 liiTGxc7CoaYJtvUfhwTOq dGFuLXBpbmssIHBlZHVuY3 PtIBMbBNDgj6P9ELWxt8N5 GCDtGn9lJWaxVu3dGYytUG 98XGOyEPauNZVyR1SvQ7R7 AGdgRAZOvLYso5KkM1wbTQ 0cfEPyy3WjbBg5kZPbMJrj VSUhuU7ubD8bBSBgKZGqTH VqfsZUOqtxTTHhWXdMy3Ry rEsrSMKzY4u1j96jB8xyyA EnFMPOOMF7zNAjalCkhDWs NT8RIBNlpxBUXpqhJzXdNj MyMiANClxwbGFpblxlcGlj RuUioACrLlEunUikzJ76FB LayWPoTLB9VT5rRNPlrthw ORTfRYUwHNM2MZujeK46bN CrCZBmXXGnbMTnsN9EOUJe RGN4SCmveU59kBUsAL1SIP HsBEX5RMDvwOBrPXN3KX7v fQ0KfQ== MICROSCOPIC DESCRIPTION x6ddvYAqFWLlwGC8ToOjKC (test code = 3371) Yjt9fnc1IomZVygVBjXTyx lDTyraNsmf22aWV1iI34HV 0cIPOhZkK8FYQbctA9Ftu7 KXLxAHIfeCMvV274c9phw0 raufHwdRX6zIkbQSAamzhq WiD5IHagXUVdmzgmFLb2ES psSPWufFX8KWBblLFiI3Tu DSPcUH2pgsf9YHO0ATllFV TwXcU7ZDUdkWDbUZYkeNvm WQqje452VCL8UcZsBRThtc YhfUylbP9eTuTaKBVKLDFi r7ZgLHHiCSSlmwuiBXYkNJ Bhcn0= [id number] 09:50:09 Test Item Value Reference Range Interpretation Comments Case Report (test code Surgical Pathology = 104) Report Case: [id number] Authorizing Provider: Angela Loco Collected: 07/03/2021 03:04 PM MD Brian Ordering Location: [address] Received: 07/06/2021 09:08 AM Service Pathologist: [...] clip x 1 DIAGNOSIS (test code = [id number] 3220) FuZzEwMzNcZnRuYmpcdWMx IHtccnRmMVxlcGljOTYwMV xqoqDzVHSojTCvD0Svoybh FVenOY3cUW4tnJejvVDepJ JoHXBvNoBvp4seb848sHYa s4flITOObbrfoJd9wGlcB8 6iu3I6PtsnX36iuKUoKSY6 MWKxNVUsyGJaNAYjVSD2AE JssPLkH7wlUPPdKG8rpzrl SWrhDHtkWXLgsKW7DGInqA ZmL9YzXIBwGQmbKASleit5 EgOyUu9gcLWktToeRXjjDF HoCGLsFZgbBYRwObUjJG5e B25UG20xKOGVC5QSTLBVPY fPYKKULT6SM6u5SSLdwaKh LSAgVFVCVUxBUiBBREVOT0 3IMNRmxsygJFZuLk7mP53X A05xAUDCI1fJA2JJK3PNKG pJTgLZT8vWYBjoRpeUFXUW UkuoIGUhXY4dGZ3ADXBTXF tNSICZVTrVUO9DShOXNeFF GAUDJNMYCWWWYM4GYGYetR FyICAtICBORUdBVElWRSBG H9QlSBxOQL8XZzLRLLQSAV GOKMRCXTBiM5MpKRKBXMwF YN9KGOyiJDAlhNAyCXZxQB MWAP5JTQNLQVbGUB6XD5ES KsCIOdzkQT3BKHOqZYHZL7 BTWTpccGFyICAtICBNVUxU SVBMRSBGUkFHTUVOVFMgT0 YkEVXJBPoQZxBWGMEGZ83H XHBhciAgLSAgTkVHQVRJVk XzQp8QRLpHK3xmW7UWHHDt XEoYMByBE0kBLT8VEK0UJG oQEfXIN0mqqHAiGWIbraQv lLKbRIErTIAKJQ5SNWOCVk JJZ2ATQaGNPQRUTYpOPADC LX8PJ1n9FAWjltGhPRCyZC MOBDqSBHNkXtUEH34BKgYC ZY9YRVMQFnKYXLBkZVIDEi 5BELwtUUXmCN2mTR7AA2YX SVZFIEZPUiBISUdILUdSQU FEDAQOL5AJJIUDNKSMQuZS DOyFA27LBdVAABDznv69VU W4WnAow2X6RMG3OYOvWAPh s8bnXOQneWGnPcDiIgGiOf XmPpzbbWIiBRBcLsAuq1ue i365qVSok2czGSQxWpN3rY NuAYOvxWUcE068MNHhQZkr q1cvs9XqBBIgcALoy1A1AU CUocpxbBo0bJqsA77ga5O9 PiwrB8vpOUPxVTQtC1CmBR 4wIDQmCha9LAW8TPB4ODSf UYXsN0VlEP5nREDpdAVeNZ u7o3mcnShePIHsDWT0f3ns JYvpqeZaBX0png9nmWp2k8 xjczEgRGVmYXVsdCBQYXJh F4MqnIvcBg5juWc4aLobNa xlDBR1Akx6PG0ykw78bcb2 oDwyUVSiktugGsZ6UQvnSW PmxkpfQBz2KFosNYCqjMA7 UNGfyGBeD3VnGDTxYW6foi v7NOB2XTvnHRGtKyF9BAYg vDGkMKCctYlzDGsqo291TE A5RvBnLP3rY8Guj6T9mH9h aXRcZGVmdGFiNzIwXGZvcm 9faACtJPvzb5TqSLQ1yaJ4 ePFbrUWxREThIwJ3ITzjXD 8znq50NFAkMOX6ns7srVMq lXdnxfExiYSuTShxC6EjJA Imh444MNEnV8PqLLIya3Q9 voWlQaHjFBQkaIO2twL7OK XfZL0cjdvfn9qbQFjhQJyc ETVxryR1qdG4RWXwsRRwS7 VksM9zEFJaTR1dtpgyv1vv WII4IAfuCXFsAER6PlVsFK Cpo2Fvexc9DsIbs6OyzPHw OLnyF11ai582IFWhlkSwT5 xwbGFpblxwbGFpblxmMFxm ixS6AKLgRHokxwjaEFGlWU teE3sjCvIhATYecJcvXYxy i0PbSJRyZPAbJwXqqPXlAV WxKxp5MOZlbYRtIGLlUtQd J3ecrxvxRgXKKSOxo3wcG8 xwmIWMgBBwH0SsZHemdqDj KEpeICqdJYFcUSC7RD1kNW JpJMSyyu93 CPT Code(s) (test code f5ueuTYeVQRnmOM3BhVzSZ = 3643) Zki7nri2RlzCHotQWpVItg uOXhwlAsyh38bCB0yZ14PP 5yBQJlTgL5OAFlmqI8Dnu0 ZLQyYPCdoVRzI027o4qxx5 lyjkVpjXZ9iKazHEAoocys JvL1AZlxVCSjapqoYBp6XW avLTKasHA6BEReqKDjV7Pa VCUuYO5nips6HIN4MLvnWU HuZnY4NZEdoUYcTLLxhUho JEqpl994XRA3GdSzPICpix ZqeUuorI5lHoEvQOW5FESg CMd7VBUlae5= CLINICAL HISTORY (test w1rxyDRdJEZcbSR4KuJfZJ code = 3356) Qfv5iug4BbvYKazEBrSVmz kUXotbLxjn56vSY7hO09OT 5wTLNoOxU0JLGnvwI1Qfn6 VUZnALCczRMwZ688v9tvu4 jzfjNlcEO5LIWpPGIcV5Gc RM9zSTIoxLVkR96nfBOaKC H6LYDlSWImgIOtXIOkHIX8 QUMwjVSyZ7rwYYFdJD4rsw yrTFotKRsyMACecWV6FZUl jQBeD0JwODYpXGkiCLRtvl k0CoNnNn3lySCbrRwbTHpd YXJkXHJpMVxwbGFpblxmcz SmBTCnHNGVaa3jLHOuFnyw vALgP5zrNQ8ugQfzUVC7xt EwWETzPyxbRDTgpf3oNXFv FwlpuVMqH3qiXP3odOluSX D0xBFwZEFmin1= GROSS DESCRIPTION (test u0ecgPNwLKUlvAQWCGJeBc code = [id number]) wayiWdINBojDLkL3Buczbq QSrjRV6cPT9yuZgunHFkkJ VyQV6DGNXoViJyRJQodFTe llLqYxOyWGNsuMIyrRK7WS BaGV4syacnFWgrWMqrJPKf smU8IVArxINmJ8BkUCUtAA 6bemkqBYE0VRsneZ5ydxIN PkovHc2veOSqvGzaSeGxXb NoYXJzZXQwXGZuaWwgQXJp IWp2rR5TQgkjE57ga3T1Id d7KSUuCCAmX5LmMJ1dLHNo yJHnJ76QXdawTFP9VXMEEq qwGSYyKF8Gv5hrKFRdtSTt AAN4SGxjlOOeWCSvGHLqOV n1IILgBOclhCCiIV6wrHuq YguvhFyxg5XmzQXaWIbbBX IlMGGoNFobPKYhFF7EBfRt THeMYnbvTAywZmS2TOp6KA CZLtTnIfPaRffnZTQ0RRyt XFg5DDs3JFsJGuG6ABF5WN SkVXlwRUHkKijvMAq8XEVe XFxmIEFyaWFsIFxcZmwgXF ukK60jjSbjpO4pSX8pNE0k oEFfBPGwdO5gED7hQ4WbuV 0uXHBhciANClxlcGljTmVz dERvYzEgDQpcbHRycGFyXG xpbjBccmluMCANClxsdHJj aFxjZjFcZnMyMCBSZWNlaX PsZNVwbcZuj9SmWLdsrxLy YWJlbGVkIHdpdGggdGhlIH IfbBjuidSeW0C1uhBjWY4c SVTcAIGjC7ZcOBNxR13fDU CtzC7tDZCpVZ3xEDu8NTHu SVDfUqiauL2erUGiXZNkbH 3hLBZzL3SeXlNdb81xbSG9 ooOpIcCfBFFfii9myX1gRE Bljm6mOCOgi6S1XRHgw7C3 ASUtKD48UOywSZ8bYYtvMT 4xIGNtLCAwLjYgeCAwLjMg jWBpXqJjO54lYqOtNLsgNG GgVIBvkILvCIcwCOF0Cd3k mQXdLPBvpnF4f7NdLNfmVI JvBopuOZWgKFuesRBcHU5M VGYtZGymcsGqWQ1BANVtQW myJDOklTRLPEU7FS3lUZbh qJPdmuvpPKGyW1EbP2Yjns YxuZTsGAYtiuEzh1poYGF7 XHNsbXVsdDBcZnMxNlxwYX S1EXd9AUfwYYCsV6EhF4Wo HEblTUP9NVYwZkIsRGFtWI NSQbItHrSkAvO4Jza4NxIv USw3ORwyP6CZWYTuBGJ6RF I8RIB9SjL4EBr4MQZHGm1z OIZgFCW5UkR2ZIV7KhL2DV xcdCAyIFxcZiBBcmlhbCBc BOBvGNqswaB1LMAkYKVdtC xujO9pQw6wWK5mdSHcTPAf fC0qKK8wFmjvlTUlYHMcWL 8gyJ8yNsfxRUSeSWymBVRz G01jt7VRb1XxCF0ZWFp5xf OfuodtiQ3cZPIhtpWmSPin fHNaL3qjA5LwXUSkSfOiMz XdXMo1MNXhyI0hIf1svDUw mW9ygZYzFOtdOAE1zPIeVE UwGBYfHHMtMC30CRhEUFQy bmFtZSwgbWVkaWNhbCByZW NvcmQgbnVtYmVyIGFuZCBc eDrmSyHtLYe8F7FgrFxgQQ Cwn5nioq1jrJwhmRFax7Je hxQkvynxIRXmOFAjt13zxE U1ztAmUxXtnCz3xEGtDVY6 VS0syJumoxdvaBQfNDk1kO EkJWQmJeYwjGert1YhXGfe LjQgeCAyLjEgeCAwLjQgY2 9faP7fARqfvuPqKJKcZS5t BASeJGPypVFcbP4gizUhwa AgmECbaMO5ZGFjsE7ztJ37 sbVtexIGAQ2vjOFlCF0UEN BhciANClxjZjBcZnMyMiAN ClxwbGFpblxlcGljTmVzdE RtNyPapNnsdC64SYTpuCEh XNW6AA1nESBkqexnQHAmGM MvAET0IGbufJ73wOMrEEEq UNUhkZQkjS8Cd3cgPCBmmG DzHJE4MPbscNArFPWsQEJa CFsyIkHkU5LGRBXtJdLqKN Y9GAHrJSl8DEo0HD4LSnXw XDYwLHXsFxZ1VRLwNRo0LJ epUY1DZPR0Phc4VGF5DWU1 NTMyOCBcXHQgMiBcXGYgQX IwMHdoUCdtvXIeSK2tgWga csH3BYOkKCpjMPAcSKKxuZ xfQRTKe4pydmDqBBZkA0g0 U9FbH3YpWXqzRw9lgGBrUQ 9RSDRyjFKHJAW5XL1rTZIF ClxsdHJwYXJcbGluMFxyaW 7lHH4LRMy8blWvCXPrGRqs mbBqXLTqL1RoeiFbFCtpGV Ttju4yeSjpGGnrQiSwIRKq i2h4fLF9hXQojNU4fJJmwA piGtNcUS2ybUJaPB4bMUon WFyfdyHdu5MpGZ31oOHbax UijkOrZFY4KuYeSDndDCJc f3d9wTltF07jc96dztlmzR FsOQCoRU1wjR2wGcPyzbKx Q89rp2byqDKbu9QtwDNljP lwbGUgdGFuLXBpbmssIHBl UKEhG6CeJWQzLVFkm7L8SI Uzn6F4ZNGvRq92MBsiWo2f GOgnGX00ILTnTRmoTSSnK1 FwM3D5IXetUCFIkWJjl2Cu L6fwGD6joADug3BpuHy2dF BeDEuiDHCqhL8peO6dSlMd XHBhciANClxwYXIgDQpcY2 RaCKHoJfJsCEbylWzwkZ4q EKOxC48ce6ESm8MgTOByXQ sdg3qtuUhwd0VunLStTHei BIAexINsNJqftX2cToFpm1 eemDi4SUrmrqL5MOKudt4N SmdgXpqytRtlu5BlcKBlLQ zbOKChDDYgATcpYCLsAE1F SgBuEKkNDaqwTYxoLiC1CI q5OXTQMhTmSaVmVjocOWK8 KlLkPDz9EOg5NZoLUgY9WH P5MTDfApYpQRPiXuqvVEk6 IDIgXFxmIEFyaWFsIFxcZm emKLgwN86qFtScTzhwzIZa pyIRSzLPp8k2rFiuM56ew6 5lLHSUveKjc6CxazKsIcxe YKDwMWxoCDTfW90bv5WRr4 SdGB1IRQy6zyLkhbjpnK4j LDDqexWjDMpnoENyN9xsU5 AtGDRsHbDiBfMmZEe4SDEh xY6vFu7zrEBmvT2frDObPA upBAG5oLFbLNSeVYPwLIJl XG17HCxIXJBiqhTwYGwrbO VkaWNhbCByZWNvcmQgbnVt YmVyIGFuZCBcdTgyMjAgXC o5F1LygJoqQIZsu2fsey51 ydEkf0RtuaDkRWQgcVOmBP 5hMxuxaQ31MXDeCERoKIDc oWpyODcnZrDxgoXxO05za7 oovCEyt1NqaSQgeWqfvQTn dGFuLXBpbmssIHBlZHVuY3 ZsZMXaNCMfm5E9JMYyz8S1 FALnJa0yUBzbWu0kLQlkTV 84BZWkQBkhKDUvD2UbM6D1 OIobXHDWbBYht5XyD9exDU 8hkLFwp2LsvAk4pFIrPEsu KONkuE8ufI0yMDTuAGSqDX QifhQOXrufPPIfVVuGv6Kn bLnlTYWrD1l2p10jW2tzeR TsSWAOVBZ3hQPrcbXgrLHo HN6HOEZetlFCOvdcRfYxBs MyMiANClxwbGFpblxlcGlj CrTzwBMxUbVhaHcmbY38PT HsuXQlEVV4UG1bQJDtjapp KVWyNQTpLLA9TTryqZ10bQ JbKDDnJTGfgQOfhK0EIWHz VRC3JMkkmH69fJPhRO8LFH TgHII1MATghVEzAVZ7GW2z fQ0KfQ== MICROSCOPIC DESCRIPTION i9pscBXgEWEcpCW9UjLrIH (test code = 3371) Lhl8jrp8KsnMUdfGPhXAaz zIQzykZkyn22nGV5tX05US 5kFAKfNuI3FTUpkoR0Ojv6 NOAxOTDjlXMqO088g7plp4 tquaDthFO5lYysEXRhjcxx ErN1UCckYEOoiblyFGv2CL utJSGaqPD3UQHqnBNrN3Tq AQJyOK2tnxw1UIY5TMkbDX CnQwD9VRTszKSmGXWzcHnp FNrpv437HUS6UjFvWCJylt LpjRtwuM9oRvJsSATFBLOs l5EyTFUoGEMokvgkKCPzBQ Bhcn0= [id number] 09:50:09 Test Item Value Reference Range Interpretation Comments Case Report (test code Surgical Pathology = 104) Report Case: [id number] Authorizing Provider: Angela Loco Collected: 07/03/2021 03:04 PM MD Brian Ordering Location: [address] Received: 07/06/2021 09:08 AM Service Pathologist: [...] clip x 1 DIAGNOSIS (test code = [id number] 3220) FuZzEwMzNcZnRuYmpcdWMx IHtccnRmMVxlcGljOTYwMV goowVxLMCubLNqI4Aeldsn HPqdTE0xIY7daTrokKHjzT GwPFVsFxCqa6ztf484kHJm w2jnOFMMegfdkQg5fWrfW7 9jn8H3VxnwS19eiIDcXRJ9 DIOjAVFkyWPnUAFnYQC5AA GraIKaG9tdUASxVP2tbauj CSalQHbhLENjkEA4QBEwiS JcW0KfJZYxYYxlUAEskjg1 UuNzKw6skNUisZbnQDvjXI EsPXHlOPrgKWUqIkHdTL6r T87SE13aOJUYI1VHUFKHLM jCEIESAU6DS1e5VNJzkbYu LSAgVFVCVUxBUiBBREVOT0 6BEONvpaquALTcJu1iU44M W22cJAZPB9bTC3XTS2GCAH pVFoPQM6eSMEqtKrnLVCXT QddlTVFmWD9yQW9CZLROHZ vHFPIBJQnBBN3OGiGWLkBH QUOWNPRVDMKBGW2VAPDgyD FyICAtICBORUdBVElWRSBG F1OfIUxAXT5IVvAKYDWLTU WWTMSGMWHwE8RvTXFAIGeO LN6VGQfwBWYspSMuZJNsLK VRHL9GUUFZCUwDNY9XZ7IC DaQPMhmrQT1CFLByLOZKY1 BTWTpccGFyICAtICBNVUxU SVBMRSBGUkFHTUVOVFMgT0 MrYGUUXSoCTiGNFJCMW45M XHBhciAgLSAgTkVHQVRJVk XsFx9NFJqRY6piW8MOOBVe SFnUPBbCM9lEVC6ASC9EWL kRJzZYO1ctkVGmOHCvikNa nBReHLBoLEZROD0MOMXTGz UWG5TCHsBTMJXVGJwTLDIQ RY2CD6d4XKZemlVbCFRjKN LUDPiLUGAwUeQJY64XUkPN MN4YXMCQQkZJAHMbLABNFn 6COVpkWBZbHS4gME6JZ5BD SVZFIEZPUiBISUdILUdSQU ZUJNYIB7NLMYBQSMAUSeKP LCoZB50FEwTLPPWdvb73YV Q3DhHfz7C6YZP5UTIiAFJh h0ekWIHqqETsFcXqVjZaYw XtOcpzlMBnICYzJuRvm8pc a972vGDrr5swYJEmXvX0wA OzAYLsgTFnD496AIHiIJsq j3iut9FpMGAveKMuf7L9UR DWqrtiwLh9vMnkT49uh1K0 XoizU9hkOBJaLSNxF6GuSY 3mVAGtFfw4HXD1NCT7FEDp MGSaB5YsCL3mJHPvpPCbHN y6i8jtrMkjVLVsUEJ4m5ga FBywuvQbKG5lwn6jfYv6l5 xjczEgRGVmYXVsdCBQYXJh Z5UuzMwsOv6urQf1nXccDq qaERY0Mtu9CL2bpu98mgz2 xWaeUJJvrdgfRcU4JUmlBG TdlarzDNm2GIqnXHYdaNL7 SWRjbZLaH0GvDTEjNG3kha q8HKC2FYqvPBApVcX0FNNm vDXjBZEfxZstXZwji606RH R6GhKsTJ1jF6Jji5S0iR2m aXRcZGVmdGFiNzIwXGZvcm 4leNZzREfrb0WrDVC4ajH3 aDPzxKDiFIFqPrV0COkcVX 8dsf38MQGdRHH5px5dbXVr cOvnfmZfmCYbBLpuV6IjQP Uhx167BRKgS8KgJHWev6G0 ehEpWoEaNSAswBX2arL5PP WuAD4wwyqqa6omDUjjQAde BTXutdN7lhN3RILjuSJvV6 OvlN5pHRNxQY3hlyfcq7yb OGG7GXdcAZAbVPT3PhHkQB Qct3Uscng5WaLio2ZpnTBz ZLmeU35tk240HEYmixEhX5 xwbGFpblxwbGFpblxmMFxm xeC2AKFjMYehbrxiYRHlHL fdC1ztQpAhWXWmxNxvPBdz u9CmLPJdURCqItGexQFdYU PjKos5FMCmyOGfDOBnGdDi E4sfmbldUmKSEJVch2dmD1 ppwGDFsWOdX0QyOEzsvzBr WGfvOKywPUKrSZA5ZB0rCJ SfURUajf39 CPT Code(s) (test code s0xoeCZmMEWlyMD4ChAfAL = 3357) Ykj7dhw3AjgKWczOQqJPce gSJmwjLxpy12eZJ2tD16YN 4mVEIlMnV1BPJtvdL9Hks3 EDNyGNHilXQfP863f1osc8 nupbQjiEK7kVmjKQEgdhqj DmP8YFwwKQYxpiatRMp6GV tiLJWknKT6QRCcyWIaZ7Jz XHLeRA6cdim4EFE0XOqfUZ EvPtJ8BEMqbFUjYJUvaWpc KImrk538DAM4ViSwXUXtup VizDtqdM0lDqTsJXY2VIXu GIt0PGAtfy8= CLINICAL HISTORY (test s0twqQXdWPWauRX0AnGeZV code = 3356) Gbp4vvw6GcbPSbvDUnVXte wIJugjMoji00zJF3gG06YY 8xZQFeObU1MWGfilR1Svb6 CHDiGUSjgXRaV500k2jin4 yjtsUyuBN1JJYnMCIkG7Od NI7iSTPugLQvG82jzIIoEP J6XKDuFSEedOCuWXZaOVX0 DDXpiRTmK9luYAMhNL4aon dnKMhmPAqiXTXpjJA0TEZh oNIeY8QpZDJuQBiyYCZabs g8DjFsPh8azNGbdNflXVfj YXJkXHJpMVxwbGFpblxmcz ZbAMHpXQLTmf3qWNYoTtly xWIsG4cnKJ6stMmcPQU5nf XtWNDlAxmlBGEwgt3bUYNc UhijqOImA7hjJM8vhBwxTI F9hDZqLCXwpm0= GROSS DESCRIPTION (test v3gqbZDxTHOqpNRWKNZwYx code = [id number]) kojuYyHOHenTQhE9Nlvhdi GNwwKR2bFE4lwBmcsSCxgF FeGS4SBAUhBgGwZFKfsMFb rtXqNwJhRNWurFFguMY6NG GpDN1jozkxIZcrDQmbGPFs axX2FWZssYUwQ5ToVEVpPH 3vuzjxBNV3AUxjwU0qlsBO FcgiPe8zlLAjcGotUxCgSi NoYXJzZXQwXGZuaWwgQXJp WGg7xW9EAbcbZ15rw9N2Vk e5CFTwWRLxX8UvMX2mNYYy rQNiN58ETmzoWFZ2LTQVCn njQTJjEC2Mo1uwLTIghDSb SIG2ITsdpAFcKMIoZBDuIC c9FLFyZUeecFYiJA4xxAtl UnzkeXcji6MoeGTlLHdjVE JrQLJcBBkdYWLpFK5YXiXv AZdBHvgyCTnqPvM6EWt6YQ HUDrDpYuJzQbaaFTC0LFxg GOo9QCx9AVqIKwQ8MYJ9SL XeQGkvTBOhMtrzHSx3RJJn XFxmIEFyaWFsIFxcZmwgXF meV35wzLyufQ8nCF9fOK0m mZZfAEFvnU4yZA5nK6CreJ 0uXHBhciANClxlcGljTmVz dERvYzEgDQpcbHRycGFyXG xpbjBccmluMCANClxsdHJj aFxjZjFcZnMyMCBSZWNlaX SpEXKgouFsn4EeLWqkmhUz YWJlbGVkIHdpdGggdGhlIH MxwQgdydLqV6E4kzGnTH8f PGRjSFRrN4DbUIJoP01aTW RxaS3lOLQqHD2tYKf9XZTg DSUsButkrL1ccRXfHUIyfZ 0zUKBcA2GfHoNza70psGU6 nbEaWmCqRPScpz1feZ5rTK Unla6yUSJug4Z0KCPou3O6 BRHpAL09NMlaOW7jAWfiBV 4xIGNtLCAwLjYgeCAwLjMg oSElToXnJ55qQqZdDDojQR XxYDIizZYaFCtwBTQ4Dc7q vRGxSKWkcuD1p7SuXLqhGU ScGefsGWVvXGeonFShJW8U TYSaUQygfsLhES4JPHYyXJ ltJUIveDNEFUG1MG5gITvj iKGeqahiDXAkL4IzR5Mujr JzmILmZKOsqxJlf7yuAGW2 XHNsbXVsdDBcZnMxNlxwYX J4TXb7PJlqLFNwP6VfS7Jj SIznFTJ5KZMjLyGoUNJdTN HBPcLkYlYbUrV2Nrq2OyRn WNk0KCsoD7ONEJYwDMC4MA T9BDL2QgA9MRf7FTWYQz7b QPGhNAL5AzU0URZ1CdZ2BG xcdCAyIFxcZiBBcmlhbCBc BMAdQLpdisZ2IXMdNFDcrJ upqL9gUz5jXC6pvNLnJYEb cN6fUX4xJosciZLdZSDtHZ 8fpT7cEzjtHAVwLVttBWHf I18en9SJl1EwDG3GAPb2pc ZmdkgthY0zINBuiwIpRSmo rSCzE5joB0IlOCFxXjPeRq WzIIx2YDLaiK2qFq5zkMOz zI2jlPLbBNwiBMY8hLZiZZ EeNUFdFWSeRF96YOxJYHEr bmFtZSwgbWVkaWNhbCByZW NvcmQgbnVtYmVyIGFuZCBc jIknYuCcRXw5Q4KaqBssKB Nze9mkjd8srDabaNMke9Op ibOhpxkvNMQlZGOys38qmV G3iiKxLuEygBl8sTEvGJS4 CR9ajRrtodjjlYVjRPj2kU GzTSDdExKgwWstz2CxIXpu LjQgeCAyLjEgeCAwLjQgY2 9csC7uTQzathTtFUGoYZ9t DBMnNSDgpAQfnJ7ezoFepa UcaPJrlFQ2PMJnoS3qyG95 ocHdjdWNJP2gzNQoPA5GOB BhciANClxjZjBcZnMyMiAN ClxwbGFpblxlcGljTmVzdE YnZvAbdYvvaR63ZFGxwEBz TPU2IZ9fWGHallkdTJOdON SwZTH3MCwgqP22iNOgSCFa FVJhjKQszV9Kz6kxOVCljS UyZUF6JWgjqRKlPDJhBEKb JOylGwArP8JQWVVaTqIeAF O6DZBdTBe3CHm4AR0GOePj HHDpKMVnSbZ8ZKBgTSi6JH ikZZ5TUND2Nkr9GPV4BKR1 NTMyOCBcXHQgMiBcXGYgQX RuKCmhNRuukKRnXU8ghHla ybX2MMPpROpaKSPfIVQioK drKITXf1htyrQvDGLcM4f1 K3WjO6UfMPybTh4iqTWeHR 0BOADueGPVDYS4RV4iITVF ClxsdHJwYXJcbGluMFxyaW 0sLW9VXTt7igVhAQBsJPxq lkCkMKLsX3SybnMqNGfgBY Yfmb2iqBjyRYwmUvEfXAFn u7d3rEM6rOUqpPE8rKUbhD vrIaZnCT9raKCtPE4mADmu YCxhpbFdu6IuNQ13uHNeqm WpoqPsTWX9NwHiFFwpCYQr f9c8zReqO03dm15hofunzE WvXYUuSO7vkX9hSyNloqNj G03lx7wdhCVur2DgeRGxdS lwbGUgdGFuLXBpbmssIHBl LTLyL5KtXIUnGUBkx8R5SD Rqz6J2AORvPm43BLblRm1x HJkvVP33HELfWBarRVHaD0 IcS6D1WVipPOLSxLYac9Xm B4ftAY1btUJnu5RrkCw5pA WySSwuRETcdB0qbM5mLzIg XHBhciANClxwYXIgDQpcY2 KaCELcPgDpPRkebPcfmX0x TJGxM32yv1VOd3LcAPXlWO bht4gyoWcrv2MnfNJwQWsg XEYsgHBrQWgigO6wTxFlk1 srnWz3JHlgjjE1MKSfto4N LizjFrvosEhdv2TxoCOpUT srIGXnBUIsCHziCYVsPS9F YkNxAMxRDmbyVIxbLiZ9FK z6YSMLIhNcLnOcRmtjSLK8 FwHtQBz4DMv5YPwZNxQ5MP I8WGQmAvPzCXTeNhjbLGe4 IDIgXFxmIEFyaWFsIFxcZm rxXPeoT48fIzWlEgtjpHTt spLICfHTv6x8hHolV68xc0 9dQJFUifQid9HfkvDgOfcp YWSfLIskQHKpN29gs2LSu3 VtPM2AENm3xpVskslsaH7c QTTvmtOdJGlfnAPhP5eqL0 QzPWXzQfMzDnHhGNp3USHy bM3qVx0ugNUbqY6xhHBaES rrYZH3bBXjUNNhVWSmBOZs AW12DKhNJKKdjsGvAGimtL VkaWNhbCByZWNvcmQgbnVt YmVyIGFuZCBcdTgyMjAgXC s8D6PkdJccUGZrn4npfx41 hpSay2RoupScFXDrxLAiBQ 3rDockqR95IWZrGAVxOIVd gAywFQxjQeLglfHbE17ps4 lvcCUug9UqjEIygUkseDJb dGFuLXBpbmssIHBlZHVuY3 EuULUoEJSkx7F1EDRol1Y7 BJGeUq0gGDpvNu0jPQxdAR 38OLFbQFveVKGlJ1LwI3I3 TGewWBKOyJVcr9NsJ2scBU 2wxGQhh7XaaZy5cHWdHKqz WFQppX7ecT8nBTTlBAXwCQ RmfvTJPidzFIGeRAyIq7Oo fVwdJRUxJ8f5t60hW6ehnV ExZEUYETC6jBBpmnNdwTVv PZ7ESWUevxGMWdvgXoUxAx MyMiANClxwbGFpblxlcGlj GmNriFVxVsDznBkttV85PR WquSVtZIN4XT2tXVEwwsju BCQeJTUvVKJ8MHfaxO93eV GrBDJhPRVvfEItbW0DAHVl THS8QHjjxH66wOZeLS6WPT KvLGJ3DLCseFJvEHX4QK4y fQ0KfQ== MICROSCOPIC DESCRIPTION f4nnyTOnZDBrwNY4FmOmNV (test code = 3371) Tbu9qix0VtiWHnrVLxPGck gTGoqjQtmj72wXZ0sV54TF 7pKLQoJwO5GYBjsgS3Lyr2 NBGzUBYycTPcV219n8eut1 fodgPaaXO0nXrmIEPmcnrg ItV9VXaqEIRqplmjEWp3UW ecZGVdqCH1QOVytQYlX5Ue JXCsQW9jsgw4MZX7GEkkNF JkMvN9GFDzkBKuNMPznKks GYlas925CKS8DsNyRWHkfh CyvVgsrA4vLoOcWJGANCAy p9HcLVScVNYtkrwbGJLfGT Bhcn0= [facility] [id number] 09:50:09Surgical Pathology Report Case: [id number] Authorizing Provider: Angela Loco Collected: 07/03/2021 03:04 PM MD Brian Ordering Location: [address] Received: 07/06/2021 09:08AM Service Pathologist: Michelle Fernández MD Specimens: A) [...] OR MALIGNANCY Signing Pathologist Direct Phone Line: [phone] signed by Michelle Fernández MD on 07/07/2021 at 9:50 [id number] deficiency anemia, unspecified irondeficiency anemia type A. [...] patient's name, medical record number and "polyp, uchyh-jepkmtjudk-0 taken by hot snare, clip x1" and consists ofmultiple robert- pink, pedunculated soft tissue (6.0 x 2.2 x 0.4 cm in aggregate). The specimen is submitted in toto in D1-D3.GRICELDA Andrew studentPerformed.POC- Glucose [id number] 08:45:23 Test Item Value Reference Range Interpretation Comments POC-Glucose Meter (test 92 mg/dL 70-110 : TE STED AT [facility] code = 1538) [address] [place] [address], [facility] 30: Hand I Thermal Cutter/Techni kelle ID = [id number] for OREDMUNDO BOWIE Lab Interpretation (test Normal code = 02458-3) [facility]-Glucose [id number] 08:45:23 Test Item Value Reference Range Interpretation Comments POC-Glucose Meter (test 92 mg/dL 70-110 : TE STED AT [facility] code = 1538) [address] [place] [address], [facility]: Hand I Thermal Cutter/Techni kelle ID = [id number] for ORPHEY, EDMUNDO Lab Interpretation (test Normal code = 46418-5) [facility]-Glucose [id number] 08:45:23 Test Item Value Reference Range Interpretation Comments POC-Glucose Meter (test 92 mg/dL 70-110 : TE STED AT [facility] code = 1538) [address] [facility], 770 30: Hand I Thermal Cutter/Techni kelle ID = [id number] for ORPHEY, EDMUNDO Lab Interpretation (test Normal code = 49799-6) [facility] [id number] 08:45:23 Test Item Value Reference Range Interpretation Comments POC-Glucose Meter (test 92 mg/dL 70-110 : TE STED AT [facility] code = 1538) [address] [facility], 770 30: Hand I Thermal Cutter/Techni kelle ID = [id number] for ORPHEY, EDMUNDO Lab Interpretation (test Normal code = 15127-3) [facility]-GLUCOSE [id number] 08:45:23 Test Item Value Reference Range Interpretation Comments POC-GLUCOSE METER 92 mg/dL 70-110 : TESTED A T [facility] 6720 (BEAKER) (test code = [facility] Barb [facility], 1538) [address]: Hand I Thermal Cutter/Techni kelle ID = [id number] for ORPH EY, EDMUNDO RAD, CHEST, 1 VIEW, NON [id number] 07:59:00Reason for exam:->post-opShould this be performed at the bedside?->Yes [facility] 1955 Sex: FFINAL REPORT [...] Additional findings: None. Signed: Bayron Cosmeeport Verified Date/Time:07/04/2021 07:59:51 BASIC METABOLIC [id number] 06:24:45 Test Item Value Reference Range Interpretation [...] S NOT APPLICABLE FOR DIALYSIS PATIEN TS. Hand I Thermal Cutter ID - [id number] 06:15:51 Test Item Value Reference Range Interpretation Comments MAGNESIUM (BEAKER) (test code = 1.9 mg/dL 1.6-2.6 627) Hand I Thermal Cutter ID - [id number] 06:15:51 Test Item Value Reference Range Interpretation Comments PHOSPHORUS (BEAKER) (test code = 3.1 mg/dL 2.3-4.7 604) Hand I Thermal Cutter ID - DBCBC (HEMOGRAM ONLY)2021-07-04 05:44:21 Test [...] Not Detected, (test code = Negative, See 37292-2) external report for linked test SARS-COV-2 [facility] FIL[facility] PERFORMING LAB (test code = 21509-7) BRANDI (test code = Negative result for [...] of the Act. Fact Sheet for Healthcare Providers:https://www.Precipio/sites/default/f radha/product/documents/F act_Sheet_HC_Providers_L pxq_VELN-IgU-1.pdf Fact Sheet for Healthcare Patients:https://www.FIMBex/sites/default/fi les/product/documents/Fa ct_Sheet_Patients_Lyra_S ARS-CoV-2.pdf Performing Laboratory:[facility], [place] [id number] [place], [place] [address]ARS-CoV2/RT-PCR (Asymptomatic ONLY)2021-07-04 00:21:04 Test Item Value Reference Range Interpretation Comments SARS-COV2/RT-PCR Negative Not Detected, (test code = Negative, See 11100-1) external report for linked test SARS-COV-2 [facility] PERFORM[facility] (test code = 87372-9) BRANDI (test code = Negative result for [...] of the Act. Fact Sheet for Healthcare Providers:https://www.Precipio/sites/default/f radha/product/documents/F act_Sheet_HC_Providers_L fqk_PLVX-IfR-4.pdf Fact Sheet for Healthcare Patients:https://www.FIMBex/sites/default/fi les/product/documents/Fa ct_Sheet_Patients_Lyra_S ARS-CoV-2.pdf Performing Laboratory:[facility] [place] [address] [facility]2021-07-04 00:21:04 Test Item Value Reference Range Interpretation Comments SARS-COV2/RT-PCR Negative Not Detected, (test code = Negative, See 85627-8) external report for linked test SARS-COV-2 [facility] PERFORM[facility] LAB (test code = 36347-5) BRANDI (test code = Negative result for [...] of the Act. Fact Sheet for Healthcare Providers:https://www.Precipio/sites/default/f radha/product/documents/F act_Sheet_HC_Providers_L gts_CNGK-TdV-7.pdf Fact Sheet for Healthcare Patients:https://www.Idea.me.[employer] [place]/sites/default/fi les/product/documents/Fa ct_Sheet_Patients_Lyra_S ARS-CoV-2.pdf Performing Laboratory:[facility] [place] [address] [facility] (Asymptomatic ONLY)2021-07-04 00:21:04 Test Item Value Reference Range Interpretation Comments SARS-COV2/RT-PCR Negative Not Detected, (test code = Negative, See 79416-4) external report for linked test SARS-COV-2 [facility] PERFORM[facility] (test code = 13163-1) BRANDI (test code = Negative result for [...] of the Act. Fact Sheet for Healthcare Providers:https://www.Precipio/sites/default/f radha/product/documents/F act_Sheet_HC_Providers_L vxl_DRSI-LvY-1.pdf Fact Sheet for Healthcare Patients:https://www.Idea.me.[employer] [place]/sites/default/fi les/product/documents/Fa ct_Sheet_Patients_Lyra_S ARS-CoV-2.pdf Performing Laboratory:[facility] [place] [address] [facility] ([facility])2021-07-04 00:21:04 Test Item Value Reference Range Interpretation Comments SARS-COV2/RT-PCR (test Negative Not Detected, Negative, code = 4578722) See external report for linked test SARS-COV-2 PERFORMING LAB [facility] FILIPE (test code = 3728796) Negative result for this test determines that [...] of the Act.Fact Sheet for Healthcare Prov iders:https://www.Visto/sites/default/files/product/documents/Fact_Sheet_HC _Jsnvkgbwq_Znfq_UGWA-SlN-9.pdfFact Sheet for Healthcare Patients:https://www.MiNOWireless.[employer] [place]/sites/default/files/product/docume nts/Ybkf_Eptdy_Duzamdqv_Rsju_FPIV-DwI-8.pdfPerforming Laboratory:[facility], [place] [address]OSFR-SHHGRGP METER 2021-07-03 21:29:18 Test Item Value Reference Range Interpretation Comments POC-GLUCOSE METER 169 mg/dL 70-110 H : TESTED A T [facility] 6720 (BEAKER) (test code = [facility], 153) [address]: Hand I Thermal Cutter/Techni kelle ID = [id number] for [place] grangeravia POCT-GLUCOSE [id number] 17:51:28 Test Item Value Reference Range Interpretation Comments POC-GLUCOSE METER 110 mg/dL 70-110 : TESTED A T [facility] 6720 (BEAKER) (test code = [facility], 153) [address]: Hand I Thermal Cutter/Techni kelle ID = [id number] for OR PHEY, EDMUNDO POCT-GLUCOSE [id number] 16:18:01 Test Item Value Reference Range Interpretation Comments POC-GLUCOSE METER 78 mg/dL 70-110 : TESTED A T [facility] 6720 (BEAKER) (test code = [facility], 153) [address]: Hand I Thermal Cutter/Techni kelle ID = [id number] for Naren palacio, Sarwat POC-Glucose [id number] 13:43:00 Test Item Value Reference Range Interpretation Comments POC-Glucose Meter (test 82 mg/dL 70-110 : TE STED AT [facility] code = 1538) [address] [facility], [address] 30: Hand I Thermal Cutter/Techni kelle ID = [id number] for RENETTA STEARNS Lab Interpretation (test Normal code = 32314-4) [facility] [id number] 13:43:00 Test Item Value Reference Range Interpretation Comments POC-GLUCOSE METER 82 mg/dL 70-110 : TESTED A T [facility] 6720 (BEAKER) (test code = [facility], 153) 132[address]: Hand I Thermal Cutter/Techni kelle ID = [id number] for RENETTA STEARNS POCT-GLUCOSE [id number] 08:55:17 Test Item Value Reference Range Interpretation Comments POC-GLUCOSE METER 85 mg/dL 70-110 : TESTED A T [facility] 6720 (BEAKER) (test code = [facility], 153) [address]: Hand I Thermal Cutter/Techni kelle ID = [id number] for ORPH EY, EDMUNDO RAD, CHEST, 1 VIEW, NON [id number] 07:19:00Reason for exam:->post-opShould this be performed at the bedside?->Yes [facility] : 1955 Sex: FFINAL [...] Conteh Verified Date/Time: 07/03/2021 07:19:27 Reading Location: [facility] Radiology Reading Room BASIC METABOLIC [id number] 04:12:43 Test Item Value Reference Range Interpretation [...] S NOT APPLICABLE FOR DIALYSIS PATIEN TS. Hand I Thermal Cutter ID - RAKAN [id number] 03:43:29 Test Item Value Reference Range Interpretation Comments MAGNESIUM (BEAKER) (test code = 2.1 mg/dL 1.6-2.6 627) Hand I Thermal Cutter ID - RAKAN [id number] 03:43:29 Test Item Value Reference Range Interpretation Comments PHOSPHORUS (BEAKER) (test code = 3.4 mg/dL 2.3-4.7 604) Hand I Thermal Cutter ID Bassam [place] WCBC (HEMOGRAM ONLY)2021-07-03 03:25:24 [...] WBC 0-0 (test code = 413) POC-Glucose [id number] 21:37:50 Test Item Value Reference Range Interpretation Comments POC-Glucose Meter (test 97 mg/dL 70-110 : TE STED AT [facility] code = 1538) 20 [facility], 770 30: Hand I Thermal Cutter/Techni kelle ID = [id number] for [place], MACKENZIE Lab Interpretation (test Normal code = 62853-8) [facility] [id number] 21:37:50 Test Item Value Reference Range Interpretation Comments POC-GLUCOSE METER 97 mg/dL 70-110 : TESTED A T [facility] 6720 (BEAKER) (test code = [facility], 153) 21333: Hand I Thermal Cutter/Techni kelle ID = [id number] for NATALIA RO, MACKENZIE POCT-GLUCOSE [id number] 18:00:54 Test Item Value Reference Range Interpretation Comments POC-GLUCOSE METER 166 mg/dL 70-110 H : TESTED A T [facility] 6720 (BEAKER) (test code = [facility], 1538) 03753: Hand I Thermal Cutter/Techni kelle ID = [id number] for Ba rrera, Kayla POCT-GLUCOSE [id number] 13:01:12 Test Item Value Reference Range Interpretation Comments POC-GLUCOSE METER 169 mg/dL 70-110 H : TESTED A T [facility] 6720 (BEAKER) (test code = [facility], 1538) 23479: Hand I Thermal Cutter/Techni kelle ID = [id number] for Ba rrera, Kayla POC-Glucose [id number] 08:45:07 Test Item Value Reference Range Interpretation Comments POC-Glucose Meter (test 134 mg/dL 70-110 H : TE STED AT [facility] code = 1538) 6720 [facility], 770 30: Hand I Thermal Cutter/Techni kelle ID = [id number] for Freitas, Mariss a Lab Interpretation (test Abnormal code = 48027-5) [facility] [id number] 08:45:07 Test Item Value Reference Range Interpretation Comments POC-GLUCOSE METER 134 mg/dL 70-110 H : TESTED A T [facility] 6720 (BEAKER) (test code = [facility], 1538) 15200: Hand I Thermal Cutter/Techni kelle ID = [id number] for Kayla Emanuel RAD, CHEST, 1 VIEW, NON [id number] 08:36:00Reason for exam:->post-opShould this be performed at the bedside?->Yes [facility] 1955 Sex: [...] Conteh MDReport Verified Date/Time: 07/02/2021 08:36:36Reading Location: [facility] Radiology Reading Room Basic Metabolic [id number] 07:06:58 Test Item Value Reference Range Interpretation Comments Sodium (test code = 137 meq/L 770-356 2438-2) Potassium (test code = 3.9 meq/L 3.5-5.1 2823-3) Chloride (test code = 101 meq/L 98-107 2075-0) CO2 (test code = 28 meq/L 22-29 2028-9) BUN (test code = 23 mg/dL 7-21 H 3094-0) Creatinine (test code 3.16 mg/dL 0.57-1.25 H = 2160-0) Glucose (test code = 150 mg/dL 70-105 H 2345-7) Calcium (test code = 8.1 mg/dL 8.4-10.2 L 32040-2) EGFR (test code = 15 mL/min/1.73 [place] [address]-5) NOT ACCURATE CREATININE CLEARANCE IN PREDICTING GLOMERULAR FILTRATION RATE . ESTIMATED GFR I S NOT APPLICABLE FOR DIALYSIS PATIENTS. BRANDI (test code = BRANDI) Hand I Thermal Cutter ID - LIANA Guevara Lab Interpretation Abnormal (test code = 74108-3) [facility] METABOLIC [id number] 07:06:58 Test Item Value Reference Range Interpretation [...] S NOT APPLICABLE FOR DIALYSIS PATIEN TS. Hand I Thermal Cutter ID - LIANA [id number] 07:06:52 Test Item Value Reference Range Interpretation Comments Magnesium (test code = 1.9 mg/dL 1.6-2.6 71195-4) BRANDI (test code = BRANDI) Hand I Thermal Cutter ID - LIANA L Lab Interpretation (test Normal code = 17934-0) [facility] 07:06:52 Test Item Value Reference Range Interpretation Comments Phosphorus (test code = 2.6 mg/dL 2.3-4.7 2777-1) BRANDI (test code = BRANDI) Hand I Thermal Cutter ID - LIANA L Lab Interpretation (test Normal code = 95383-0) [facility] 07:06:52 Test Item Value Reference Range Interpretation Comments MAGNESIUM (BEAKER) (test code = 1.9 mg/dL 1.6-2.6 627) Hand I Thermal Cutter ID - LIANA [id number] 07:06:52 Test Item Value Reference Range Interpretation Comments PHOSPHORUS (BEAKER) (test code = 2.6 mg/dL 2.3-4.7 604) Hand I Thermal Cutter ID - LIANA LCBC (Hemogram only)2021-07-02 05:56:49 Test Item Value Reference Range Interpretation Comments WBC (test code = 6690-2) 4.6 See_Comment [A utomated message] The system [employer] generated this result transmitted ref erence range: 3.5 - 10 .5 K/L. The refe rence range was not u sed to interpret this result as normal/abnor mal. RBC (test code = 789-8) 2.50 See_Comment L [Au tomated message] The system [employer] generated this result transmitted ref erence range: 3.93 - 5 .22 M/L. The refe rence range was not u sed to interpret this result as normal/abnor mal. MCHC (test code = 786-4) 31.9 See_Comment L [A utomated message] The system [employer] generated this result transmitted ref erence range: [...] L [Aut omated message] 777-3) The system [employer] generated this result transmitted ref erence range: 150 - 45 0 K/CU MM. The referen ce range was not u sed to interpret this result as normal/abnor mal. MPV (test code = 11.3 fL 9.4-12.3 15233-1) nRBC (test code = 413) 0 See_Comment [Aut omated message] The system [employer] generated this result transmitted ref erence range: 0 - 0 /1 00 WBC. The refere nce range was not u sed to interpret this result as normal/abnor mal. Lab Interpretation (test Abnormal code = 90070-9) [facility] (HEMOGRAM ONLY)2021-07-02 05:56:49 Test [...] WBC 0-0 (test code = 413) POCT-GLUCOSE [id number] 21:57:03 Test Item Value Reference Range Interpretation Comments POC-GLUCOSE METER 179 mg/dL 70-110 H : TESTED A T [facility] 6720 (BEAKER) (test code = [facility], 1538) 51915: Hand I Thermal Cutter/Techni kelle ID = [id number] for MACKENZIE GONZALEZ POCT-GLUCOSE [id number] 17:59:08 Test Item Value Reference Range Interpretation Comments POC-GLUCOSE METER 208 mg/dL 70-110 H : TESTED A T [facility] 6720 (BEAKER) (test code = [facility], 1538) 11716: Hand I Thermal Cutter/Techni kelle ID = [id number] for Loco Hicks POCT-GLUCOSE [id number] 13:37:14 Test Item Value Reference Range Interpretation Comments POC-GLUCOSE METER 118 mg/dL 70-110 H : TESTED A T [facility] 6720 ([facility]) (test code = [facility], 1538) 76233: Hand I Thermal Cutter/Techni kelle ID = [id number] for Millie Toledo RAD, CHEST, 1 VIEW, NON [id number] 09:58:00Reason for exam:->post-opShould this be performed at the bedside?->Yes [facility] : 1955 Sex: FFINAL [...] atelectasis, pneumonia or pulmonary edema. Signed: Boogie Conteheport Verified Date/Time: 07/01/2021 09:58:13 Reading Location: [facility] Radiology Reading Room POC-Glucose [id number] 08:48:09 Test Item Value Reference Range Interpretation Comments POC-Glucose Meter (test 127 mg/dL 70-110 H : TE STED AT [facility] code = 1538) 67[address] [facility], 770 30: Hand I Thermal Cutter/Techni kelle ID = [id number] for Loco Chapman Lab Interpretation (test Abnormal code = 83317-0) [facility] [id number] 08:48:09 Test Item Value Reference Range Interpretation Comments POC-GLUCOSE METER 127 mg/dL 70-110 H : TESTED A T [facility] 6720 (BEAKER) (test code = [facility], 1538) 87997: Hand I Thermal Cutter/Techni kelle ID = [id number] for Loco Hicks Basic Metabolic [id number] 06:34:36 Test Item Value Reference Range Interpretation [...] (test code = 8.2 mg/dL 8.4-10.2 L 27324-9) EGFR (test code = 10 mL/min/1.73 [place] [address]-4) NOT ACCURATE CREATININE CLEARANCE IN PREDICTING GLOMERULAR FILTRATION RATE . ESTIMATED GFR I S NOT APPLICABLE FOR DIALYSIS PATIENTS. BRANDI (test code = BRANDI) Hand I Thermal Cutter ID - BURKEKEZIA L Lab Interpretation Abnormal (test code = 30259-6) [facility] [id number] 06:34:36 Test Item Value Reference Range Interpretation [...] S NOT APPLICABLE FOR DIALYSIS PATIEN TS. Hand I Thermal Cutter ID - PIAYA NJniuixjke6743-05-90 06:26:43 Test Item Value Reference Range Interpretation Comments Magnesium (test code = 2.1 mg/dL 1.6-2.6 80097-0) BRANDI (test code = BRANDI) Hand I Thermal Cutter ID - PIKEZIA L Lab Interpretation (test Normal code = 28859-5) [facility] 06:26:43 Test Item Value Reference Range Interpretation Comments Phosphorus (test code = 3.6 mg/dL 2.3-4.7 2777-1) BRANDI (test code = BRANDI) Hand I Thermal Cutter ID - PIKEZIA L Lab Interpretation (test Normal code = 79763-5) [facility]20[facility]-30 06:26:43 Test Item Value Reference Range Interpretation Comments MAGNESIUM (BEAKER) (test code = 2.1 mg/dL 1.6-2.6 627) Hand I Thermal Cutter ID - PIKEZIA [id number] 06:26:43 Test Item Value Reference Range Interpretation Comments PHOSPHORUS (BEAKER) (test code = 3.6 mg/dL 2.3-4.7 604) Hand I Thermal Cutter ID - LIANA LCBC (Hemogram only)2021-07-01 05:41:20 Test Item Value Reference Range Interpretation Comments WBC (test code = 6690-2) 4.8 See_Comment [A utomated message] The system [employer] generated this result transmitted ref erence range: 3.5 - 10 .5 K/L. The refe rence range was not u sed to interpret this result as normal/abnor mal. RBC (test code = 789-8) 2.60 See_Comment L [Au tomated message] The system [employer] generated this result transmitted ref erence range: 3.93 - 5 .22 M/L. The refe rence range was not u sed to interpret this result as normal/abnor mal. MCHC (test code = 786-4) 32.1 See_Comment L [A utomated message] The system [employer] generated this result transmitted ref erence range: [...] L [Aut omated message] 777-3) The system [employer] generated this result transmitted ref erence range: 150 - 45 0 K/CU MM. The referen ce range was not u sed to interpret this result as normal/abnor mal. MPV (test code = 11.3 fL 9.4-12.3 74333-7) nRBC (test code = 413) 0 See_Comment [Aut omated message] The system [employer] generated this result transmitted ref erence range: 0 - 0 /1 00 WBC. The refere nce range was not u sed to interpret this result as normal/abnor mal. Lab Interpretation (test Abnormal code = 11230-3) [facility] (HEMOGRAM ONLY)2021-07-01 05:41:20 Test [...] WBC 0-0 (test code = 413) POCT-GLUCOSE [id number] 21:14:47 Test Item Value Reference Range Interpretation Comments POC-GLUCOSE METER 159 mg/dL 70-110 H : TESTED A T [facility] 6720 (BEAKER) (test code = [facility] [place], 1538) 43903: Hand I Thermal Cutter/Techni kelle ID = [id number] for RO FRANCES, MACKENZIE RAD, ABDOMEN/KUB, 1 VIEW [id number] 18:59:00Reason for exam:- >constipationShould this be performed at the bedside?->Yes [facility] 1955 Sex: FFINAL REPORT Exam: RAD, ABDOMEN/KUB, 1 VIEW APDate: 06/30/2021 6:58 PM Indication:constipation COMPARISON: 06/24/2021 DISCUSSION/IMPRESSION: The lower thorax is within normal limits. Nonspecific bowel gas pattern. No evidence of free air within the limitations of this study. Signed: Kb Gregorio Verified Date/Time: 06/30/2021 18:59:30 Reading Location: [address] Reading Room POCT-GLUCOSE [id number] 17:39:03 Test Item Value Reference Range Interpretation Comments POC-GLUCOSE METER 204 mg/dL 70-110 H : [facility]ED A [facility] ([employer]) (test code = YUDY Barb [facility], 1538) 58585: Hand I Thermal Cutter/Techni kelle ID = [id number] for OR PHEY, EDMUNDO POCT-GLUCOSE [id number] 12:35:41 Test Item Value Reference Range Interpretation Comments POC-GLUCOSE METER 136 mg/dL 70-110 H : TESTED A T [facility] 6720 ([employer]) (test code = YUDY Vaca [facility], 1538) 04627: Hand I Thermal Cutter/Techni kelle ID = [id number] for OR PHEY, EDMUNDO RAD, CHEST, 1 VIEW, NON [id number] 09:21:00Reason for exam:->post-opShould this be performed at the bedside?->Yes [facility] : 1955 Sex: FFINAL [...] Conteh Verified Date/Time: 06/30/2021 09:21:42 Reading Location: [facility] Radiology Reading Room POCT-GLUCOSE [id number] 08:26:49 Test Item Value Reference Range Interpretation Comments POC-GLUCOSE METER 132 mg/dL 70-110 H : TESTED A T [facility] 6720 (BEAKER) (test code = [place], 1538) 66676: Hand I Thermal Cutter/Techni kelle ID = [id number] for OR EDMUNDO BOWIE BASIC METABOLIC [id number] 05:31:46 Test Item Value Reference Range Interpretation Comments SODIUM (BEAKER) 136 meq/L 136-145 (test code = 381) POTASSIUM (BEAKER) 4.0 meq/L 3.5-5.1 (test code = 379) CHLORIDE (BEAKER) 100 meq/L 98-107 (test code = 382) CO2 (BEAKER) (test 28 meq/L code = 355) BLOOD UREA NITROGEN 20 [...] S NOT APPLICABLE FOR DIALYSIS PATIEN TS. Hand I Thermal Cutter ID - LIANA [id number] 05:28:01 Test Item Value Reference Range Interpretation Comments MAGNESIUM (BEAKER) (test code = 1.8 mg/dL 1.6-2.6 627) Hand I Thermal Cutter ID - LIANA [id number] 05:28:01 Test Item Value Reference Range Interpretation Comments PHOSPHORUS (BEAKER) (test code = 2.6 mg/dL 2.3-4.7 604) Hand I Thermal Cutter ID - LIANA LCBC (HEMOGRAM ONLY)2021-06-30 05:03:10 [...] 0-0 (test code = 413) Prepare Leuko-Red [id number] 23:54:00 Test Item Value Reference Range Interpretation Comments CROSSMATCH (test code = 2264) COMPATIBLE Unit ABO (test code = O Pos 0488218) UNIT NUMBER (test code = [id number] 934-0) Status (test code = 5144589) [facility] Blood Bank Product (test code RED BLOOD CELLS = 2263) PRODUCT CODE (test code = [id number] 933-2) [facility]Red [id number] 23:54:00 Test Item Value Reference Range Interpretation Comments CROSSMATCH (test code = 2264) COMPATIBLE Unit ABO (test code = O Pos 0883758) UNIT NUMBER (test code = [id number] 934-0) Status (test code = 4680112) [facility] Blood Bank Product (test code RED BLOOD CELLS = 2263) PRODUCT CODE (test code = Z7667G34 933-2) [facility]Red [id number] 23:54:00 Test Item Value Reference Range Interpretation Comments CROSSMATCH (test code = 2264) COMPATIBLE Unit ABO (test code = O Pos 7140823) UNIT NUMBER (test code = [id number] 934-0) Status (test code = 3603950) TX_TIMEINCHART Blood Bank Product (test code RED BLOOD CELLS = 2263) PRODUCT CODE (test code = K5035R18 933-2) [facility]Red [id number] 23:54:00 Test Item Value Reference Range Interpretation Comments CROSSMATCH (test code = 2264) COMPATIBLE Unit ABO (test code = O Pos 1619637) UNIT NUMBER (test code = [id number] 934-0) Status (test code = 3811046) TX_TIMEINCHART Blood Bank Product (test code RED BLOOD CELLS = 2263) PRODUCT CODE (test code = K7181G28 933-2) [facility]Red [id number] 23:54:00 Test Item Value Reference Range Interpretation Comments CROSSMATCH (test code = 2264) COMPATIBLE Unit ABO (test code = O Pos 2831279) UNIT NUMBER (test code = [id number] 934-0) Status (test code = 6061193) TX_TIMEINCHART Blood Bank Product (test code RED BLOOD CELLS = 2263) PRODUCT CODE (test code = P0858P03 933-2) [facility]Red [id number] 23:54:00 Test Item Value Reference Range Interpretation Comments CROSSMATCH (test code = 2264) COMPATIBLE Unit ABO (test code = O Pos 3722974) UNIT NUMBER (test code = [id number] 934-0) Status (test code = 7620192) TX_TIMEINCHART Blood Bank Product (test code RED BLOOD CELLS = 2263) PRODUCT CODE (test code = D9166P95 933-2) [facility]Red [id number] 23:54:00 Test Item Value Reference Range Interpretation Comments CROSSMATCH (test code = 2264) COMPATIBLE Unit ABO (test code = O Pos 0500088) UNIT NUMBER (test code = [id number] 934-0) Status (test code = 8818594) TX_TIMEINCHART Blood Bank Product (test code RED BLOOD CELLS = 2263) PRODUCT CODE (test code = S0776G86 933-2) [facility]Red [id number] 23:54:00 Test Item Value Reference Range Interpretation Comments CROSSMATCH (test code = 2264) COMPATIBLE Unit ABO (test code = O Pos 8772273) UNIT NUMBER (test code = [id number] 934-0) Status (test code = 0108248) TX_TIMEINCHART Blood Bank Product (test code RED BLOOD CELLS = 2263) PRODUCT CODE (test code = G0069X80 933-2) [facility] [id number] 22:04:06 Test Item Value Reference Range Interpretation Comments POC-GLUCOSE METER 149 mg/dL 70-110 H : TESTED A T [facility] 6720 (BEAKER) (test code = [facility], 1538) 28076: Hand I Thermal Cutter/Techni kelle ID = [id number] for Federico Overton POCT-GLUCOSE [id number] 17:55:17 Test Item Value Reference Range Interpretation Comments POC-GLUCOSE METER 150 mg/dL 70-110 H : TESTED A T [facility] 6720 (BEAKER) (test code = [facility], 1538) 45767: Hand I Thermal Cutter/Techni kelle ID = [id number] for OR PHEZenia, EDMUNDO POCT-GLUCOSE [id number] 15:31:47 Test Item Value Reference Range Interpretation Comments POC-GLUCOSE METER 155 mg/dL 70-110 H : TESTED A T [facility] 6720 (BEAKER) (test code = [facility], 1538) 04153: Hand I Thermal Cutter/Techni kelle ID = [id number] for OR PHEY, EDMUNDO RAD, CHEST, 1 VIEW, NON [id number] 10:41:00Reason for exam:->post-opShould this be performed at the bedside?->Yes [facility] 1955 Sex: FFINAL REPORT [...] Conteh Verified Date/Time: 06/29/2021 10:41:18 Reading Location: [facility] Radiology Reading Room POC-Glucose [id number] 08:51:04 Test Item Value Reference Range Interpretation Comments POC-Glucose Meter (test 208 mg/dL 70-110 H : TE STED AT [facility] code = 1538) 6720 [facility], 770 30: Hand I Thermal Cutter/Techni kelle ID = [id number] for EDMUNDO BARRAGAN Lab Interpretation (test Abnormal code = 73355-8) [facility]PO[facility] [id number] 08:51:04 Test Item Value Reference Range Interpretation Comments POC-Glucose Meter (test 208 mg/dL 70-110 H : TE STED AT [facility] code = 1538) 6720 [facility], 770 30: Hand I Thermal Cutter/Techni kelle ID = [id number] for EDMUNDO BARRAGAN Lab Interpretation (test Abnormal code = 56733-5) [facility] [id number] 08:51:04 Test Item Value Reference Range Interpretation Comments POC-GLUCOSE METER 208 mg/dL 70-110 H : TESTED A T [facility] 6720 (BEAKER) (test code = [facility] Barb [facility], 1538) 44197: Hand I Thermal Cutter/Techni kelle ID = [id number] for EDMUNDO JACKSON Basic Metabolic [id number] 06:07:27 Test Item Value Reference Range Interpretation Comments Sodium (test code = 133 meq/L 136-145 L 2951-2) Potassium (test code = 4.3 meq/L 3.5-5.1 3-3) Chloride (test code = 99 meq/L 98-107 5-0) CO2 (test code = 24 meq/L 22-29 2027-9) BUN (test code = 37 mg/dL 7-21 H 3094-0) Creatinine (test code 4.75 mg/dL 0.57-1.25 H = 2160-0) Glucose (test code = 257 mg/dL 70-105 H 2345-7) Calcium (test code = 8.0 mg/dL 8.4-10.2 L 96909-3) EGFR (test code = 9 mL/min/1.[place] [address]-4) NOT ACCURATE CREATININE CLEARANCE IN PREDICTING GLOMERULAR FILTRATION RATE . ESTIMATED GFR I S NOT APPLICABLE FOR DIALYSIS PATIENTS. BRANDI (test code = BRANDI) Hand I Thermal Cutter [employer] Lab Interpretation Abnormal (test code = 91700-6) [facility] Metabolic [id number] 06:07:27 Test Item Value Reference Range Interpretation [...] (test code = 8.0 mg/dL 8.4-10.2 L 39421-5) EGFR (test code = 9 mL/min/1.[place] [address]-5) NOT ACCURATE CREATININE CLEARANCE IN PREDICTING GLOMERULAR FILTRATION RATE . ESTIMATED GFR I S NOT APPLICABLE FOR DIALYSIS PATIENTS. BRANDI (test code = BRANDI) Hand I Thermal Cutter ID [employer] Lab Interpretation Abnormal (test code = 17549-5) [facility] Metabolic [id number] 06:07:27 Test Item Value Reference Range Interpretation [...] (test code = 8.0 mg/dL 8.4-10.2 L 17267-6) EGFR (test code = 9 mL/min/1.[place] [address]-0) NOT ACCURATE CREATININE CLEARANCE IN PREDICTING GLOMERULAR FILTRATION RATE . ESTIMATED GFR I S NOT APPLICABLE FOR DIALYSIS PATIENTS. BRANDI (test code = BRANDI) Hand I Thermal Cutter ID - HIEN M Lab Interpretation Abnormal (test code = 56760-4) [facility] [id number] 06:07:27 Test Item Value Reference Range Interpretation [...] S NOT APPLICABLE FOR DIALYSIS PATIEN TS. Hand I Thermal Cutter ID - HIEN CVwghmmqmbo2467-29-93 06:05:44 Test Item Value Reference Range Interpretation Comments Phosphorus (test code = 2.5 mg/dL 2.3-4.7 2777-1) BRANDI (test code = BRANDI) Hand I Thermal Cutter ID - HIEN M Lab Interpretation (test Normal code = 39174-5) [facility]2022-[facility]-28 06:05:44 Test Item Value Reference Range Interpretation Comments Phosphorus (test code = 2.5 mg/dL 2.3-4.7 2777-1) BRANDI (test code = BRANDI) Hand I Thermal Cutter ID - HIEN Lab Interpretation (test Normal code = 26006-8) [facility]2022-03-28 06:05:44 Test Item Value Reference Range Interpretation Comments Phosphorus (test code = 2.5 mg/dL 2.3-4.7 2777-1) BRANDI (test code = BRANDI) Hand I Thermal Cutter ID - HIEN M Lab Interpretation (test Normal code = 24831-0) [facility]2022-03-28 06:05:44 Test Item Value Reference Range Interpretation Comments PHOSPHORUS (BEAKER) (test code = 2.5 mg/dL 2.3-4.7 604) Hand I Thermal Cutter ID - HIEN SVzbxzwaef4814-80-32 06:05:43 Test Item Value Reference Range Interpretation Comments Magnesium (test code = 2.2 mg/dL 1.6-2.6 70310-0) BRANDI (test code = BRANDI) Hand I Thermal Cutter ID - HIEN Lab Interpretation (test Normal code = 20195-2) [facility] 06:05:43 Test Item Value Reference Range Interpretation Comments Magnesium (test code = 2.2 mg/dL 1.6-2.6 68879-2) BRANDI (test code = BRANDI) Hand I Thermal Cutter ID - HIEN Lab Interpretation (test Normal code = 51762-0) [facility] 06:05:43 Test Item Value Reference Range Interpretation Comments Magnesium (test code = 2.2 mg/dL 1.6-2.6 23278-8) BRANDI (test code = BRANDI) Hand I Thermal Cutter ID - HIEN Lab Interpretation (test Normal code = 73047-1) [facility] 06:05:43 Test Item Value Reference Range Interpretation Comments MAGNESIUM (BEAKER) (test code = 2.2 mg/dL 1.6-2.6 627) Hand I Thermal Cutter ID - HIEN [facility] (Hemogram only)2021-06-29 05:32:19 Test Item Value Reference Range Interpretation Comments WBC (test code = 6690-2) 4.7 See_Comment [A utomated message] The system [employer] generated this result transmitted ref erence range: 3.5 - 10 .5 K/L. The refe rence range was not u sed to interpret this result as normal/abnor mal. RBC (test code = 789-8) 2.94 See_Comment L [Au tomated message] The system [employer] generated this result transmitted ref erence range: 3.93 - 5 .22 M/L. The refe rence range was not u sed to interpret this result as normal/abnor mal. MCHC (test code = 786-4) 31.8 See_Comment L [A utomated message] The system [employer] generated this result transmitted ref erence range: [...] L [Aut omated message] 777-3) The system [employer] generated this result transmitted ref erence range: 150 - 45 0 K/CU MM. The referen ce range was not u sed to interpret this result as normal/abnor mal. MPV (test code = 12.2 fL 9.4-12.3 36494-2) nRBC (test code = 413) 0 See_Comment [Aut omated message] The system [employer] generated this result transmitted ref erence range: 0 - 0 /1 00 WBC. The refere nce range was not u sed to interpret this result as normal/abnor mal. Lab Interpretation (test Abnormal code = 06611-4) [facility] (Hemogram only)2021-06-29 05:32:19 Test Item Value Reference Range Interpretation Comments WBC (test code = 6690-2) 4.7 See_Comment [A utomated message] The system [email or web address] generated this result transmitted ref erence range: 3.5 - 10 .5 K/L. The refe rence range was not u sed to interpret this result as normal/abnor mal. RBC (test code = 789-8) 2.94 See_Comment L [Au tomated message] The system [employer] generated this result transmitted ref erence range: 3.93 - 5 .22 M/L. The refe rence range was not u sed to interpret this result as normal/abnor mal. MCHC (test code = 786-4) 31.8 See_Comment L [A utomated message] The system [employer] generated this result transmitted ref erence range: [...] L [Aut omated message] 777-3) The system [employer] generated this result transmitted ref erence range: 150 - 45 0 K/CU MM. The referen ce range was not u sed to interpret this result as normal/abnor mal. MPV (test code = 12.2 fL 9.4-12.3 84945-2) nRBC (test code = 413) 0 See_Comment [Aut omated message] The system [employer] generated this result transmitted ref erence range: 0 - 0 /1 00 WBC. The refere nce range was not u sed to interpret this result as normal/abnor mal. Lab Interpretation (test Abnormal code = 33419-0) [facility] (Hemogram only)2021-06-29 05:32:19 Test Item Value Reference Range Interpretation Comments WBC (test code = 6690-2) 4.7 See_Comment [A utomated message] The system [employer] generated this result transmitted ref erence range: 3.5 - 10 .5 K/L. The refe rence range was not u sed to interpret this result as normal/abnor mal. RBC (test code = 789-8) 2.94 See_Comment L [Au tomated message] The system [employer] generated this result transmitted ref erence range: 3.93 - 5 .22 M/L. The refe rence range was not u sed to interpret this result as normal/abnor mal. MCHC (test code = 786-4) 31.8 See_Comment L [A utomated message] The system [employer] generated this result transmitted ref erence range: [...] L [Aut omated message] 777-3) The system [employer] generated this result transmitted ref erence range: 150 - 45 0 K/CU MM. The referen ce range was not u sed to interpret this result as normal/abnor mal. MPV (test code = 12.2 fL 9.4-12.3 27080-0) nRBC (test code = 413) 0 See_Comment [Aut omated message] The system [employer] generated this result transmitted ref erence range: 0 - 0 /1 00 WBC. The refere nce range was not u sed to interpret this result as normal/abnor mal. Lab Interpretation (test Abnormal code = 26318-2) [facility] (HEMOGRAM ONLY)2021-06-29 05:32:19 Test [...] WBC 0-0 (test code = 413) POC-Glucose [id number] 19:54:37 Test Item Value Reference Range Interpretation Comments POC-Glucose Meter (test 188 mg/dL 70-110 H : TE STED AT [facility] code = 1538) 67[address] [facility], 770 30: Hand I Thermal Cutter/Techni kelle ID = [id number] for RAMON SPRING Lab Interpretation (test Abnormal code = 68703-1) [facility] [id number] 19:54:37 Test Item Value Reference Range Interpretation Comments POC-GLUCOSE METER 188 mg/dL 70-110 H : [facility]ER[facility] (test code = [facility], 1538) 71796: Hand I Thermal Cutter/Techni kelle ID = [id number] for RAMON FLORES POCT-GLUCOSE [id number] 17:33:41 Test Item Value Reference Range Interpretation Comments POC-GLUCOSE METER 166 mg/dL 70-110 H : TESTED A T [facility] 6720 (BEAKER) (test code = [facility], 1538) 82252: Hand I Thermal Cutter/Techni kelle ID = [id number] for Kayla Emanuel CBC with platelet count + automated [id number] 15:34:06 Test Item Value Reference Range Interpretation Comments WBC (test code = 6690-2) 4.6 See_Comment [A utomated message] The system [employer] generated this result transmitted ref erence range: 3.5 - 10 .5 K/L. The refe rence range was not u sed to interpret this result as normal/abnor mal. RBC (test code = 789-8) 2.86 See_Comment L [Au tomated message] The system [employer] generated this result transmitted ref erence range: 3.93 - 5 .22 M/L. The refe rence range was not u sed to interpret this result as normal/abnor mal. MCHC (test code = 786-4) 32.1 See_Comment L [A utomated message] The system [employer] generated this result transmitted ref erence range: [...] L [Aut omated message] 777-3) The system [employer] generated this result transmitted ref erence range: 150 - 45 0 K/CU MM. The referen ce range was not u sed to interpret this result as normal/abnor mal. MPV (test code = 11.0 fL 9.4-12.3 08855-2) nRBC (test code = 413) 0 See_Comment [Aut omated message] The system [employer] generated this result transmitted ref erence range: [...] See_Comment [Aut omated message] 670) The system [employer] generated this result transmitted ref erence range: 1.56 - 6 .13 K/L. The refe rence range was not u sed to interpret this result as normal/abnor mal. # Lymphs (test code = 0.73 See_Comment L [Auto mated message] 414) The system [employer] generated this result transmitted ref erence range: 1.18 - 3 .74 K/L. The refe rence range was not u sed to interpret this result as normal/abnor mal. # Monos (test code = 0.62 See_Comment H [Autom ated message] 415) The system [employer] generated this result transmitted ref erence range: 0.24 - 0 .36 K/L. The refe rence range was not u sed to interpret this result as normal/abnor mal. # Eos (test code = 416) 0.24 See_Comment [Au tomated message] The system [employer] generated this result transmitted ref erence range: 0.04 - 0 .36 K/L. The refe rence range was not u sed to interpret this result as normal/abnor mal. # Baso (test code = 417) 0.04 See_Comment [A utomated message] The system [employer] generated this result transmitted ref erence range: 0.01 - 0 .08 K/L. The refe rence range was not u sed to interpret this result as normal/abnor mal. Immature 0 % 0-1 Granulocytes-Relative (test code = 2801) Lab Interpretation (test Abnormal code = 12734-9) [facility] with platelet count + automated [id number] 15:34:06 Test Item Value Reference Range Interpretation Comments WBC (test code = 6690-2) 4.6 See_Comment [A utomated message] The system [employer] generated this result transmitted ref erence range: 3.5 - 10 .5 K/L. The refe rence range was not u sed to interpret this result as normal/abnor mal. RBC (test code = 789-8) 2.86 See_Comment L [Au tomated message] The system [employer] generated this result transmitted ref erence range: 3.93 - 5 .22 M/L. The refe rence range was not u sed to interpret this result as normal/abnor mal. MCHC (test code = 786-4) 32.1 See_Comment L [A utomated message] The system [employer] generated this result transmitted ref erence range: [...] L [Aut omated message] 777-3) The system [employer] generated this result transmitted ref erence range: 150 - 45 0 K/CU MM. The referen ce range was not u sed to interpret this result as normal/abnor mal. MPV (test code = 11.0 fL 9.4-12.3 49556-1) nRBC (test code = 413) 0 See_Comment [Aut omated message] The system [employer] generated this result transmitted ref erence range: [...] See_Comment [Aut omated message] 670) The system [employer] generated this result transmitted ref erence range: 1.56 - 6 .13 K/L. The refe rence range was not u sed to interpret this result as normal/abnor mal. # Lymphs (test code = 0.73 See_Comment L [Auto mated message] 414) The system [employer] generated this result transmitted ref erence range: 1.18 - 3 .74 K/L. The refe rence range was not u sed to interpret this result as normal/abnor mal. # Monos (test code = 0.62 See_Comment H [Autom ated message] 415) The system [employer] generated this result transmitted ref erence range: 0.24 - 0 .36 K/L. The refe rence range was not u sed to interpret this result as normal/abnor mal. # Eos (test code = 416) 0.24 See_Comment [Au tomated message] The system [employer] generated this result transmitted ref erence range: 0.04 - 0 .36 K/L. The refe rence range was not u sed to interpret this result as normal/abnor mal. # Baso (test code = 417) 0.04 See_Comment [A utomated message] The system [employer] generated this result transmitted ref erence range: 0.01 - 0 .08 K/L. The refe rence range was not u sed to interpret this result as normal/abnor mal. Immature 0 % 0-1 Granulocytes-Relative (test code = 2801) Lab Interpretation (test Abnormal code = 36134-2) [facility] with platelet count + automated [id number] 15:34:06 Test Item Value Reference Range Interpretation Comments WBC (test code = 6690-2) 4.6 See_Comment [A utomated message] The system [employer] generated this result transmitted ref erence range: 3.5 - 10 .5 K/L. The refe rence range was not u sed to interpret this result as normal/abnor mal. RBC (test code = 789-8) 2.86 See_Comment L [Au tomated message] The system [employer] generated this result transmitted ref erence range: 3.93 - 5 .22 M/L. The refe rence range was not u sed to interpret this result as normal/abnor mal. MCHC (test code = 786-4) 32.1 See_Comment L [A utomated message] The system [employer] generated this result transmitted ref erence range: [...] L [Aut omated message] 777-3) The system [employer] generated this result transmitted ref erence range: 150 - 45 0 K/CU MM. The referen ce range was not u sed to interpret this result as normal/abnor mal. MPV (test code = 11.0 fL 9.4-12.3 88253-5) nRBC (test code = 413) 0 See_Comment [Aut omated message] The system [employer] generated this result transmitted ref erence range: [...] See_Comment [Aut omated message] 670) The system [employer] generated this result transmitted ref erence range: 1.56 - 6 .13 K/L. The refe rence range was not u sed to interpret this result as normal/abnor mal. # Lymphs (test code = 0.73 See_Comment L [Auto mated message] 414) The system [employer] generated this result transmitted ref erence range: 1.18 - 3 .74 K/L. The refe rence range was not u sed to interpret this result as normal/abnor mal. # Monos (test code = 0.62 See_Comment H [Autom ated message] 415) The system [employer] generated this result transmitted ref erence range: 0.24 - 0 .36 K/L. The refe rence range was not u sed to interpret this result as normal/abnor mal. # Eos (test code = 416) 0.24 See_Comment [Au tomated message] The system [employer] generated this result transmitted ref erence range: 0.04 - 0 .36 K/L. The refe rence range was not u sed to interpret this result as normal/abnor mal. # Baso (test code = 417) 0.04 See_Comment [A utomated message] The system [employer] generated this result transmitted ref erence range: 0.01 - 0 .08 K/L. The refe rence range was not u sed to interpret this result as normal/abnor mal. Immature 0 % 0-1 Granulocytes-Relative (test code = 2801) Lab Interpretation (test Abnormal code = 19346-7) [facility] with platelet count + automated [id number] 15:34:06 Test Item Value Reference Range Interpretation Comments WBC (test code = 6690-2) 4.6 See_Comment [A utomated message] The system [employer] generated this result transmitted ref erence range: 3.5 - 10 .5 K/L. The refe rence range was not u sed to interpret this result as normal/abnor mal. RBC (test code = 789-8) 2.86 See_Comment L [Au tomated message] The system [employer] generated this result transmitted ref erence range: 3.93 - 5 .22 M/L. The refe rence range was not u sed to interpret this result as normal/abnor mal. MCHC (test code = 786-4) 32.1 See_Comment L [A utomated message] The system [employer] generated this result transmitted ref erence range: [...] L [Aut omated message] 777-3) The system [employer] generated this result transmitted ref erence range: 150 - 45 0 K/CU MM. The referen ce range was not u sed to interpret this result as normal/abnor mal. MPV (test code = 11.0 fL 9.4-12.3 92214-7) nRBC (test code = 413) 0 See_Comment [Aut omated message] The system [employer] generated this result transmitted ref erence range: [...] See_Comment [Aut omated message] 670) The system [employer] generated this result transmitted ref erence range: 1.56 - 6 .13 K/L. The refe rence range was not u sed to interpret this result as normal/abnor mal. # Lymphs (test code = 0.73 See_Comment L [Auto mated message] 414) The system [employer] generated this result transmitted ref erence range: 1.18 - 3 .74 K/L. The refe rence range was not u sed to interpret this result as normal/abnor mal. # Monos (test code = 0.62 See_Comment H [Autom ated message] 415) The system [employer] generated this result transmitted ref erence range: 0.24 - 0 .36 K/L. The refe rence range was not u sed to interpret this result as normal/abnor mal. # Eos (test code = 416) 0.24 See_Comment [Au tomated message] The system [employer] generated this result transmitted ref erence range: 0.04 - 0 .36 K/L. The refe rence range was not u sed to interpret this result as normal/abnor mal. # Baso (test code = 417) 0.04 See_Comment [A utomated message] The system [employer] generated this result transmitted ref erence range: 0.01 - 0 .08 K/L. The refe rence range was not u sed to interpret this result as normal/abnor mal. Immature 0 % 0-1 Granulocytes-Relative (test code = 2801) Lab Interpretation (test Abnormal code = 45205-0) [facility] with platelet count + automated [id number] 15:34:06 Test Item Value Reference Range Interpretation Comments WBC (test code = 6690-2) 4.6 See_Comment [A utomated message] The system [employer] generated this result transmitted ref erence range: 3.5 - 10 .5 K/L. The refe rence range was not u sed to interpret this result as normal/abnor mal. RBC (test code = 789-8) 2.86 See_Comment L [Au tomated message] The system [employer] generated this result transmitted ref erence range: 3.93 - 5 .22 M/L. The refe rence range was not u sed to interpret this result as normal/abnor mal. MCHC (test code = 786-4) 32.1 See_Comment L [A utomated message] The system [employer] generated this result transmitted ref erence range: [...] L [Aut omated message] 777-3) The system [employer] generated this result transmitted ref erence range: 150 - 45 0 K/CU MM. The referen ce range was not u sed to interpret this result as normal/abnor mal. MPV (test code = 11.0 fL 9.4-12.3 40947-9) nRBC (test code = 413) 0 See_Comment [Aut omated message] The system [employer] generated this result transmitted ref erence range: [...] See_Comment [Aut omated message] 670) The system [employer] generated this result transmitted ref erence range: 1.56 - 6 .13 K/L. The refe rence range was not u sed to interpret this result as normal/abnor mal. # Lymphs (test code = 0.73 See_Comment L [Auto mated message] 414) The system [employer] generated this result transmitted ref erence range: 1.18 - 3 .74 K/L. The refe rence range was not u sed to interpret this result as normal/abnor mal. # Monos (test code = 0.62 See_Comment H [Autom ated message] 415) The system [employer] generated this result transmitted ref erence range: 0.24 - 0 .36 K/L. The refe rence range was not u sed to interpret this result as normal/abnor mal. # Eos (test code = 416) 0.24 See_Comment [Au tomated message] The system [employer] generated this result transmitted ref erence range: 0.04 - 0 .36 K/L. The refe rence range was not u sed to interpret this result as normal/abnor mal. # Baso (test code = 417) 0.04 See_Comment [A utomated message] The system [employer] generated this result transmitted ref erence range: 0.01 - 0 .08 K/L. The refe rence range was not u sed to interpret this result as normal/abnor mal. Immature 0 % 0-1 Granulocytes-Relative (test code = 2801) Lab Interpretation (test Abnormal code = 71704-2) [facility] with platelet count + automated [id number] 15:34:06 Test Item Value Reference Range Interpretation Comments WBC (test code = 6690-2) 4.6 See_Comment [A utomated message] The system [employer] generated this result transmitted ref erence range: 3.5 - 10 .5 K/L. The refe rence range was not u sed to interpret this result as normal/abnor mal. RBC (test code = 789-8) 2.86 See_Comment L [Au tomated message] The system [employer] generated this result transmitted ref erence range: 3.93 - 5 .22 M/L. The refe rence range was not u sed to interpret this result as normal/abnor mal. MCHC (test code = 786-4) 32.1 See_Comment L [A utomated message] The system [employer] generated this result transmitted ref erence range: [...] L [Aut omated message] 777-3) The system [employer] generated this result transmitted ref erence range: 150 - 45 0 K/CU MM. The referen ce range was not u sed to interpret this result as normal/abnor mal. MPV (test code = 11.0 fL 9.4-12.3 57516-7) nRBC (test code = 413) 0 See_Comment [Aut omated message] The system [employer] generated this result transmitted ref erence range: [...] See_Comment [Aut omated message] 670) The system [employer] generated this result transmitted ref erence range: 1.56 - 6 .13 K/L. The refe rence range was not u sed to interpret this result as normal/abnor mal. # Lymphs (test code = 0.73 See_Comment L [Auto mated message] 414) The system [employer] generated this result transmitted ref erence range: 1.18 - 3 .74 K/L. The refe rence range was not u sed to interpret this result as normal/abnor mal. # Monos (test code = 0.62 See_Comment H [Autom ated message] 415) The system [employer] generated this result transmitted ref erence range: 0.24 - 0 .36 K/L. The refe rence range was not u sed to interpret this result as normal/abnor mal. # Eos (test code = 416) 0.24 See_Comment [Au tomated message] The system [employer] generated this result transmitted ref erence range: 0.04 - 0 .36 K/L. The refe rence range was not u sed to interpret this result as normal/abnor mal. # Baso (test code = 417) 0.04 See_Comment [A utomated message] The system [employer] generated this result transmitted ref erence range: 0.01 - 0 .08 K/L. The refe rence range was not u sed to interpret this result as normal/abnor mal. Immature 0 % 0-1 Granulocytes-Relative (test code = 2801) Lab Interpretation (test Abnormal code = 20701-1) [facility] with platelet count + automated [id number] 15:34:06 Test Item Value Reference Range Interpretation Comments WBC (test code = 6690-2) 4.6 See_Comment [A utomated message] The system [employer] generated this result transmitted ref erence range: 3.5 - 10 .5 K/L. The refe rence range was not u sed to interpret this result as normal/abnor mal. RBC (test code = 789-8) 2.86 See_Comment L [Au tomated message] The system [employer] generated this result transmitted ref erence range: 3.93 - 5 .22 M/L. The refe rence range was not u sed to interpret this result as normal/abnor mal. MCHC (test code = 786-4) 32.1 See_Comment L [A utomated message] The system [employer] generated this result transmitted ref erence range: [...] L [Aut omated message] 777-3) The system [employer] generated this result transmitted ref erence range: 150 - 45 0 K/CU MM. The referen ce range was not u sed to interpret this result as normal/abnor mal. MPV (test code = 11.0 fL 9.4-12.3 53300-1) nRBC (test code = 413) 0 See_Comment [Aut omated message] The system [employer] generated this result transmitted ref erence range: [...] See_Comment [Aut omated message] 670) The system [employer] generated this result transmitted ref erence range: 1.56 - 6 .13 K/L. The refe rence range was not u sed to interpret this result as normal/abnor mal. # Lymphs (test code = 0.73 See_Comment L [Auto mated message] 414) The system [employer] generated this result transmitted ref erence range: 1.18 - 3 .74 K/L. The refe rence range was not u sed to interpret this result as normal/abnor mal. # Monos (test code = 0.62 See_Comment H [Autom ated message] 415) The system [employer] generated this result transmitted ref erence range: 0.24 - 0 .36 K/L. The refe rence range was not u sed to interpret this result as normal/abnor mal. # Eos (test code = 416) 0.24 See_Comment [Au tomated message] The system [employer] generated this result transmitted ref erence range: 0.04 - 0 .36 K/L. The refe rence range was not u sed to interpret this result as normal/abnor mal. # Baso (test code = 417) 0.04 See_Comment [A utomated message] The system [employer] generated this result transmitted ref erence range: 0.01 - 0 .08 K/L. The refe rence range was not u sed to interpret this result as normal/abnor mal. Immature 0 % 0-1 Granulocytes-Relative (test code = 2801) Lab Interpretation (test Abnormal code = 35904-1) [facility] with platelet count + automated [id number] 15:34:06 Test Item Value Reference Range Interpretation Comments WBC (test code = 6690-2) 4.6 See_Comment [A utomated message] The system [employer] generated this result transmitted ref erence range: 3.5 - 10 .5 K/L. The refe rence range was not u sed to interpret this result as normal/abnor mal. RBC (test code = 789-8) 2.86 See_Comment L [Au tomated message] The system [employer] generated this result transmitted ref erence range: 3.93 - 5 .22 M/L. The refe rence range was not u sed to interpret this result as normal/abnor mal. MCHC (test code = 786-4) 32.1 See_Comment L [A utomated message] The system [employer] generated this result transmitted ref erence range: [...] L [Aut omated message] 777-3) The system [employer] generated this result transmitted ref erence range: 150 - 45 0 K/CU MM. The referen ce range was not u sed to interpret this result as normal/abnor mal. MPV (test code = 11.0 fL 9.4-12.3 72667-3) nRBC (test code = 413) 0 See_Comment [Aut omated message] The system [employer] generated this result transmitted ref erence range: [...] See_Comment [Aut omated message] 670) The system [employer] generated this result transmitted ref erence range: 1.56 - 6 .13 K/L. The refe rence range was not u sed to interpret this result as normal/abnor mal. # Lymphs (test code = 0.73 See_Comment L [Auto mated message] 414) The system [employer] generated this result transmitted ref erence range: 1.18 - 3 .74 K/L. The refe rence range was not u sed to interpret this result as normal/abnor mal. # Monos (test code = 0.62 See_Comment H [Autom ated message] 415) The system [employer] generated this result transmitted ref erence range: 0.24 - 0 .36 K/L. The refe rence range was not u sed to interpret this result as normal/abnor mal. # Eos (test code = 416) 0.24 See_Comment [Au tomated message] The system [employer] generated this result transmitted ref erence range: 0.04 - 0 .36 K/L. The refe rence range was not u sed to interpret this result as normal/abnor mal. # Baso (test code = 417) 0.04 See_Comment [A utomated message] The system [employer] generated this result transmitted ref erence range: 0.01 - 0 .08 K/L. The refe rence range was not u sed to interpret this result as normal/abnor mal. Immature 0 % 0-1 Granulocytes-Relative (test code = 2801) Lab Interpretation (test Abnormal code = 81419-5) [facility] with platelet count + automated [id number] 15:34:06 Test Item Value Reference Range Interpretation Comments WBC (test code = 6690-2) 4.6 See_Comment [A utomated message] The system [employer] generated this result transmitted ref erence range: 3.5 - 10 .5 K/L. The refe rence range was not u sed to interpret this result as normal/abnor mal. RBC (test code = 789-8) 2.86 See_Comment L [Au tomated message] The system [employer] generated this result transmitted ref erence range: 3.93 - 5 .22 M/L. The refe rence range was not u sed to interpret this result as normal/abnor mal. MCHC (test code = 786-4) 32.1 See_Comment L [A utomated message] The system [employer] generated this result transmitted ref erence range: [...] L [Aut omated message] 777-3) The system [employer] generated this result transmitted ref erence range: 150 - 45 0 K/CU MM. The referen ce range was not u sed to interpret this result as normal/abnor mal. MPV (test code = 11.0 fL 9.4-12.3 71541-5) nRBC (test code = 413) 0 See_Comment [Aut omated message] The system [employer] generated this result transmitted ref erence range: [...] See_Comment [Aut omated message] 670) The system [employer] generated this result transmitted ref erence range: 1.56 - 6 .13 K/L. The refe rence range was not u sed to interpret this result as normal/abnor mal. # Lymphs (test code = 0.73 See_Comment L [Auto mated message] 414) The system [employer] generated this result transmitted ref erence range: 1.18 - 3 .74 K/L. The refe rence range was not u sed to interpret this result as normal/abnor mal. # Monos (test code = 0.62 See_Comment H [Autom ated message] 415) The system [employer] generated this result transmitted ref erence range: 0.24 - 0 .36 K/L. The refe rence range was not u sed to interpret this result as normal/abnor mal. # Eos (test code = 416) 0.24 See_Comment [Au tomated message] The system [employer] generated this result transmitted ref erence range: 0.04 - 0 .36 K/L. The refe rence range was not u sed to interpret this result as normal/abnor mal. # Baso (test code = 417) 0.04 See_Comment [A utomated message] The system [employer] generated this result transmitted ref erence range: 0.01 - 0 .08 K/L. The refe rence range was not u sed to interpret this result as normal/abnor mal. Immature 0 % 0-1 Granulocytes-Relative (test code = 2801) Lab Interpretation (test Abnormal code = 21951-0) [facility] with platelet count + automated [id number] 15:34:06 Test Item Value Reference Range Interpretation Comments WBC (test code = 6690-2) 4.6 See_Comment [A utomated message] The system [employer] generated this result transmitted ref erence range: 3.5 - 10 .5 K/L. The refe rence range was not u sed to interpret this result as normal/abnor mal. RBC (test code = 789-8) 2.86 See_Comment L [Au tomated message] The system [employer] generated this result transmitted ref erence range: 3.93 - 5 .22 M/L. The refe rence range was not u sed to interpret this result as normal/abnor mal. MCHC (test code = 786-4) 32.1 See_Comment L [A utomated message] The system [employer] generated this result transmitted ref erence range: [...] L [Aut omated message] 777-3) The system [employer] generated this result transmitted ref erence range: 150 - 45 0 K/CU MM. The referen ce range was not u sed to interpret this result as normal/abnor mal. MPV (test code = 11.0 fL 9.4-12.3 92665-0) nRBC (test code = 413) 0 See_Comment [Aut omated message] The system [employer] generated this result transmitted ref erence range: [...] See_Comment [Aut omated message] 670) The system [employer] generated this result transmitted ref erence range: 1.56 - 6 .13 K/L. The refe rence range was not u sed to interpret this result as normal/abnor mal. # Lymphs (test code = 0.73 See_Comment L [Auto mated message] 414) The system [employer] generated this result transmitted ref erence range: 1.18 - 3 .74 K/L. The refe rence range was not u sed to interpret this result as normal/abnor mal. # Monos (test code = 0.62 See_Comment H [Autom ated message] 415) The system [employer] generated this result transmitted ref erence range: 0.24 - 0 .36 K/L. The refe rence range was not u sed to interpret this result as normal/abnor mal. # Eos (test code = 416) 0.24 See_Comment [Au tomated message] The system [employer] generated this result transmitted ref erence range: 0.04 - 0 .36 K/L. The refe rence range was not u sed to interpret this result as normal/abnor mal. # Baso (test code = 417) 0.04 See_Comment [A utomated message] The system [employer] generated this result transmitted ref erence range: 0.01 - 0 .08 K/L. The refe rence range was not u sed to interpret this result as normal/abnor mal. Immature 0 % 0-1 Granulocytes-Relative (test code = 2801) Lab Interpretation (test Abnormal code = 75448-5) [facility] [id number] 15:34:06 Test Item Value Reference Range Interpretation Comments WBC (test code = 6690-2) 4.6 See_Comment [A utomated message] The system [employer] generated this result transmitted ref erence range: 3.5 - 10 .5 K/L. The refe rence range was not u sed to interpret this result as normal/abnor mal. RBC (test code = 789-8) 2.86 See_Comment L [Au tomated message] The system [employer] generated this result transmitted ref erence range: 3.93 - 5 .22 M/L. The refe rence range was not u sed to interpret this result as normal/abnor mal. MCHC (test code = 786-4) 32.1 See_Comment L [A utomated message] The system [employer] generated this result transmitted ref erence range: [...] L [Aut omated message] 777-3) The system [employer] generated this result transmitted ref erence range: 150 - 45 0 K/CU MM. The referen ce range was not u sed to interpret this result as normal/abnor mal. MPV (test code = 11.0 fL 9.4-12.3 64330-2) nRBC (test code = 413) 0 See_Comment [Aut omated message] The system [employer] generated this result transmitted ref erence range: [...] See_Comment [Aut omated message] 670) The system [employer] generated this result transmitted ref erence range: 1.56 - 6 .13 K/L. The refe rence range was not u sed to interpret this result as normal/abnor mal. # Lymphs (test code = 0.73 See_Comment L [Auto mated message] 414) The system [employer] generated this result transmitted ref erence range: 1.18 - 3 .74 K/L. The refe rence range was not u sed to interpret this result as normal/abnor mal. # Monos (test code = 0.62 See_Comment H [Autom ated message] 415) The system [employer] generated this result transmitted ref erence range: 0.24 - 0 .36 K/L. The refe rence range was not u sed to interpret this result as normal/abnor mal. # Eos (test code = 416) 0.24 See_Comment [Au tomated message] The system [employer] generated this result transmitted ref erence range: 0.04 - 0 .36 K/L. The refe rence range was not u sed to interpret this result as normal/abnor mal. # Baso (test code = 417) 0.04 See_Comment [A utomated message] The system [employer] generated this result transmitted ref erence range: 0.01 - 0 .08 K/L. The refe rence range was not u sed to interpret this result as normal/abnor mal. Immature 0 % 0-1 Granulocytes-Relative (test code = 2801) Lab Interpretation (test Abnormal code = 64569-0) [facility] W/PLT COUNT & AUTO [id number] 15:34:06 Test Item Value Reference Range Interpretation [...] PERCENT (BEAKER) (test code = 2801) POCT-GLUCOSE [id number] 12:42:57 Test Item Value Reference Range Interpretation Comments POC-GLUCOSE METER 216 mg/dL 70-110 H : TESTED [facility] 6720 (BEAKER) (test code = [place], 1538) [address]: Hand I Thermal Cutter/Techni kelle ID = [id number] for Kayla Emanuel Prep[facility] Leuko-Red [id number] 10:49:00 Test Item Value Reference Range Interpretation Comments CROSSMATCH (test code = 2264) COMPATIBLE Unit ABO (test code = O Pos 1814656) UNIT NUMBER (test code = [id number] 934-0) Status (test code = 2119607) ISSUED Blood Bank Product (test code RED BLOOD CELLS = 2263) PRODUCT CODE (test code = [id number] 933-2) [facility] [id number] 10:49:00 Test Item Value Reference Range Interpretation Comments CROSSMATCH (test code = 2264) COMPATIBLE Unit ABO (test code = O Pos 2406748) UNIT NUMBER (test code = [id number] 934-0) Status (test code = 0373194) ISSUED Blood Bank Product (test code RED BLOOD CELLS = 2263) PRODUCT CODE (test code = [id number] 933-2) [facility] [id number] 10:49:00 Test Item Value Reference Range Interpretation Comments CROSSMATCH (test code = 2264) COMPATIBLE Unit ABO (test code = O Pos 0408821) UNIT NUMBER (test code = [id number] 934-0) Status (test code = 4536224) ISSUED Blood Bank Product (test code RED BLOOD CELLS = 2263) PRODUCT CODE (test code = [id number] 933-2) [facility] [id number] 08:43:51 Test Item Value Reference Range Interpretation Comments POC-GLUCOSE METER 209 mg/dL 70-110 H : TESTED A T [facility] 6720 (BEAKER) (test code = [place], 1538) [address]: Hand I Thermal Cutter/Techni kelle ID = [id number] for Kayla Emanuel RAD, CHEST, 1 VIEW, NON [id number] 07:26:00Reason for exam:->post-opShould this be performed at the bedside?->Yes [facility] : 1955 Sex: FFINAL REPORT [...] surgical changes. Additional findings: None. Signed: [facility] Verified Date/Time: 06/28/2021 07:26:22 BASIC METABOLIC [id number] 04:56:45 Test Item Value Reference Range Interpretation [...] S NOT APPLICABLE FOR DIALYSIS PATIEN TS. Hand I Thermal Cutter ID - LIANA [id number] 04:48:49 Test Item Value Reference Range Interpretation Comments MAGNESIUM (BEAKER) 2.0 mg/dL 1.6-2.6 Specimen slightly (test code = 627) hemolyzed Hand I Thermal Cutter ID - LIANA [id number] 04:48:49 Test Item Value Reference Range Interpretation Comments PHOSPHORUS (BEAKER) 2.5 mg/dL 2.3-4.7 Specimen slightly (test code = 604) hemolyzed Hand I Thermal Cutter ID - LIANA LCBC (HEMOGRAM ONLY)2021-06-28 04:28:17 [...] WBC 0-0 (test code = 413) POCT-GLUCOSE [id number] 21:38:17 Test Item Value Reference Range Interpretation Comments POC-GLUCOSE METER 200 mg/dL 70-110 H : TESTED A T [facility] 6720 (BEAKER) (test code = [facility], 1538) [address]: Hand I Thermal Cutter/Techni kelle ID = [id number] for MACKENZIE GONZALEZ POCT-GLUCOSE [id number] 18:02:45 Test Item Value Reference Range Interpretation Comments POC-GLUCOSE METER 217 mg/dL 70-110 H : TESTED A T [facility] 6720 (BEAKER) (test code = [facility], 1538) 39[address]: Hand I Thermal Cutter/Techni kelle ID = [id number] for Ba rrera, Kayla POCT-GLUCOSE [id number] 15:14:18 Test Item Value Reference Range Interpretation Comments POC-GLUCOSE METER 229 mg/dL 70-110 H : TESTED A T [facility] 6720 (BEAKER) (test code = [facility], 1538) 42726: Hand I Thermal Cutter/Techni kelle ID = [id number] for Ba rrera, Kayla POCT-GLUCOSE [id number] 12:20:23 Test Item Value Reference Range Interpretation Comments POC-GLUCOSE METER 160 mg/dL 70-110 H : TESTED A T [facility] 6720 (BEAKER) (test code = [facility], 1538) 03060: Hand I Thermal Cutter/Techni kelle ID = [id number] for Ba rrera, Kayla SARS-CoV2/RT-PCR (Asymptomatic ONLY)2021-06-27 10:39:35 Test Item Value Reference Range Interpretation Comments SARS-COV2/RT-PCR Negative Not Detected, (test code = Negative, See 67236-2) external report for linked test SARS-COV-2 [facility] FILIPE PERFORMING LAB (test code = 00444-8) BRANDI (test code = Negative result for [...] of the Act. Fact Sheet for Healthcare Providers:https://www.Precipio/sites/default/f radha/product/documents/F act_Sheet_HC_Providers_L iiy_MAEV-YvY-4.pdf Fact Sheet for Healthcare Patients:https://www.FIMBex/sites/default/fi les/product/documents/Fa ct_Sheet_Patients_Lyra_S ARS-CoV-2.pdf Performing Laboratory:[facility] [place] [address] [facility]As[facility]omatic ONLY)2021-06-27 10:39:35 Test Item Value Reference Range Interpretation Comments SARS-COV2/RT-PCR Negative Not Detected, (test code = Negative, See 72358-9) external report for linked test SARS-COV-2 [facility] FIL[facility] PERFORMING LAB (test code = 63952-0) BRANDI (test code = Negative result for [...] of the Act. Fact Sheet for Healthcare Providers:https://www.Precipio/sites/default/f radha/product/documents/F act_Sheet_HC_Providers_L yni_GBLF-YdA-9.pdf Fact Sheet for Healthcare Patients:https://www.FIMBex/sites/default/fi les/product/documents/Fa ct_Sheet_Patients_Lyra_S ARS-CoV-2.pdf Performing Laboratory:[facility] [place] [address] [facility] (Asymptomatic ONLY)2021-06-27 10:39:35 Test Item Value Reference Range Interpretation Comments SARS-COV2/RT-PCR Negative Not Detected, (test code = Negative, See 19240-8) external report for linked test SARS-COV-2 [facility] PERFORM[facility] (test code = 82543-4) BRANDI (test code = Negative result for [...] of the Act. Fact Sheet for Healthcare Providers:https://www.Precipio/sites/default/f radha/product/documents/F act_Sheet_HC_Providers_L swq_OWND-XbB-2.pdf Fact Sheet for Healthcare Patients:https://www.FIMBex/sites/default/fi les/product/documents/Fa ct_Sheet_Patients_Lyra_S ARS-CoV-2.pdf Performing Laboratory:[facility] [place] [address] [facility] (Asymptomatic ONLY)2021-06-27 10:39:35 Test Item Value Reference Range Interpretation Comments SARS-COV2/RT-PCR Negative Not Detected, (test code = Negative, See 31671-2) external report for linked test SARS-COV-2 [facility] PERFORM[facility] (test code = 34672-0) BRANDI (test code = Negative result for [...] of the Act. Fact Sheet for Healthcare Providers:https://www.Organizer idel.[place] [place]/sites/default/f radha/product/documents/F act_Sheet_HC_Providers_L rnp_IOKU-NvY-5.pdf Fact Sheet for Healthcare Patients:https://www.ankur del.[employer] [place]/sites/default/fi les/product/documents/Fa ct_Sheet_Patients_Lyra_S ARS-CoV-2.pdf Performing Laboratory:[facility] [place] [address] [facility] (Asymptomatic ONLY)2021-06-27 10:39:35 Test Item Value Reference Range Interpretation Comments SARS-COV2/RT-PCR Negative Not Detected, (test code = Negative, See 82399-8) external report for linked test SARS-COV-2 [facility] FIL[facility] PERFORMING [facility] (test code = 91900-7) BRANDI (test code = Negative result for [...] of the Act. Fact Sheet for Healthcare Providers:https://www.Organizer ideProxsys.[place] [place]/sites/default/f radha/product/documents/F act_Sheet_HC_Providers_L bkv_MZXD-GfO-8.pdf Fact Sheet for Healthcare Patients:https://www.Idea.me.[place] [place]/sites/default/fi les/product/documents/Fa ct_Sheet_Patients_Lyra_S ARS-CoV-2.pdf Performing Laboratory:[place] [address] [place] [address] [facility] (Asymptomatic ONLY)2021-06-27 10:39:35 Test Item Value Reference Range Interpretation Comments SARS-COV2/RT-PCR Negative Not Detected, (test code = Negative, See 36002-8) external report for linked test SARS-COV-2 [facility] FIL[facility] PERFORMING LAB (test code = 81981-4) BRANDI (test code = Negative result for [...] of the Act. Fact Sheet for Healthcare Providers:https://www.Zighra.[place] [place]/sites/default/f radha/product/documents/F act_Sheet_HC_Providers_L lhj_JLLF-GtI-3.pdf Fact Sheet for Healthcare Patients:https://www.VR1 del.com/sites/default/fi les/product/documents/Fa ct_Sheet_Patients_Lyra_S ARS-CoV-2.pdf Performing Laboratory:[facility] [place] [address] [facility] (Asymptomatic ONLY)2021-06-27 10:39:35 Test Item Value Reference Range Interpretation Comments SARS-COV2/RT-PCR Negative Not Detected, (test code = Negative, See 48799-5) external report for linked test SARS-COV-2 [facility] FIL[facility] PERFORMING LAB (test code = 81252-7) BRANDI (test code = Negative result for [...] of the Act. Fact Sheet for Healthcare Providers:https://www.Divvyshotl.com/sites/default/f radha/product/documents/F act_Sheet_HC_Providers_L xzc_LTJG-UpF-5.pdf Fact Sheet for Healthcare Patients:https://www.Idea.me.com/sites/default/fi les/product/documents/Fa ct_Sheet_Patients_Lyra_S ARS-CoV-2.pdf Performing Laboratory:[facility] [place] [address] [facility] ([facility])2021-06-27 10:39:35 Test Item Value Reference Range Interpretation Comments SARS-COV2/RT-PCR (test Negative Not Detected, Negative, code = 5470266) See external report for linked test SARS-COV-2 PERFORMING LAB [facility] FILIPE (test code = 1025076) Negative result for this test determines that [...] of the Act.Fact Sheet for Healthcare Prov iders:https://www.Visto/sites/default/files/product/documents/Fact_Sheet_HC _Znaqhxdrj_Jfkn_FEDU-RnE-0.pdfFact Sheet for Healthcare Patients:https://www.Visto/sites/default/files/product/docume nts/Hzom_Fyjho_Skwrxkhz_Jxlp_BKUB-TjR-6.pdfPerforming Laboratory:[facility], [place] [address]BKER-FFVVPBH METER 2021-06-27 08:35:14 Test Item Value Reference Range Interpretation Comments POC-GLUCOSE METER 99 mg/dL 70-110 : TESTED A T [facility] 6720 (AKASH) (test code = [place] [facility], 1538) [address]: Hand I Thermal Cutter/Techni kelle ID = [id number] for Kayla Arenas RAD, CHEST, 1 VIEW, NON [id number] 08:17:00Reason for exam:->post-opShould this be performed at the bedside?->Yes [facility] : 1955 Sex: FFINAL REPORT Chest, one view HISTORY: Postoperative Comparison: 06/26/2021 Findings: Lungs: Mild bilateral interstitial opacities, likely pulmonary venous congestion. No significant change. Heart: Unchanged moderate cardiomegaly. Pleura: No pleural effusion or pneumothorax. Bones: Unremarkable. Lines/tubes: Unchanged in position. Signed: Erlin Carr Verified Date/Time: 06/27/2021 08:17:45 Reading Location: [facility] C013W Consult Reading Room BASIC METABOLIC [id number] 05:32:33 Test Item Value Reference Range Interpretation [...] S NOT APPLICABLE FOR DIALYSIS PATIEN TS. Hand I Thermal Cutter ID - HIEN [id number] 05:23:42 Test Item Value Reference Range Interpretation Comments PHOSPHORUS (BEAKER) (test code = 2.2 mg/dL 2.3-4.7 L 604) Hand I Thermal Cutter ID - HIEN [id number] 05:23:41 Test Item Value Reference Range Interpretation Comments MAGNESIUM (BEAKER) (test code = 1.8 mg/dL 1.6-2.6 627) Hand I Thermal Cutter ID - HIEN [id number] 05:19:04 Test Item Value Reference Range Interpretation Comments PTT (test code = 71473-6) 35.8 See_Comment [ Automated message] The system [employer] ByRead generated this result transmitted ref erence range: 22.5 - 3 6.0 seconds. The re ference range was not u sed to interpret this result as normal/abnor mal. Lab Interpretation (test Normal code = 33636-5) [facility] 05:[facility] Test Item Value Reference Range Interpretation Comments PTT (test code = 82658-8) 35.8 See_Comment [ Automated message] The system [employer] generated this result transmitted ref erence range: 22.5 - 3 6.0 seconds. The re ference range was not u sed to interpret this result as normal/abnor mal. Lab Interpretation (test Normal code = 05667-4) [place] 82368022-03-26 05:19:04 Test Item Value Reference Range Interpretation Comments PTT (test code = 03521-1) 35.8 See_Comment [ Automated message] The system [employer] generated this result transmitted ref erence range: 22.5 - 3 6.0 seconds. The re ference range was not u sed to interpret this result as normal/abnor mal. Lab Interpretation (test Normal code = 49733-3) [place] 82368022-03-26 05:19:04 Test Item Value Reference Range Interpretation Comments PTT (test code = 78015-3) 35.8 See_Comment [ Automated message] The system [employer] generated this result transmitted ref erence range: 22.5 - 3 6.0 seconds. The re ference range was not u sed to interpret this result as normal/abnor mal. Lab Interpretation (test Normal code = 42849-1) [place] 82368022-03-26 05:19:04 Test Item Value Reference Range Interpretation Comments PTT (test code = 67793-1) 35.8 See_Comment [ Automated message] The system [employer] generated this result transmitted ref erence range: 22.5 - 3 6.0 seconds. The re ference range was not u sed to interpret this result as normal/abnor mal. Lab Interpretation (test Normal code = 82982-3) [place] 82368022-03-26 05:19:04 Test Item Value Reference Range Interpretation Comments PTT (test code = 65699-0) 35.8 See_Comment [ Automated message] The system [employer] generated this result transmitted ref erence range: 22.5 - 3 6.0 seconds. The re ference range was not u sed to interpret this result as normal/abnor mal. Lab Interpretation (test Normal code = 53773-6) [facility] 05:[facility]04 Test Item Value Reference Range Interpretation Comments PTT (test code = 87945-7) 35.8 See_Comment [ Automated message] The system [employer] generated this result transmitted ref erence range: 22.5 - 3 6.0 seconds. The re ference range was not u sed to interpret this result as normal/abnor mal. Lab Interpretation (test Normal code = 86552-3) [place] 82368022-03-26 05:19:04 Test Item Value Reference Range Interpretation Comments PTT (test code = 15169-0) 35.8 See_Comment [ Automated message] The system [employer] generated this result transmitted ref erence range: 22.5 - 3 6.0 seconds. The re ference range was not u sed to interpret this result as normal/abnor mal. Lab Interpretation (test Normal code = 83018-6) [place] 82368022-03-26 05:19:04 Test Item Value Reference Range Interpretation Comments PTT (test code = 49080-8) 35.8 See_Comment [ Automated message] The system [employer] generated this result transmitted ref erence range: 22.5 - 3 6.0 seconds. The re ference range was not u sed to interpret this result as normal/abnor mal. Lab Interpretation (test Normal code = 29590-1) [facility] 05:19:04 Test Item Value Reference Range Interpretation Comments PTT (test code = 62382-7) 35.8 See_Comment [ Automated message] The system [employer] generated this result transmitted ref erence range: 22.5 - 3 6.0 seconds. The re ference range was not u sed to interpret this result as normal/abnor mal. Lab Interpretation (test Normal code = 65483-0) [place] 82368022-03-26 05:19:04 Test Item Value Reference Range Interpretation Comments PTT (test code = 03900-2) 35.8 See_Comment [ Automated message] The system [employer] generated this result transmitted ref erence range: 22.5 - 3 6.0 seconds. The re ference range was not u sed to interpret this result as normal/abnor mal. Lab Interpretation (test Normal code = 92883-1) [facility] 05:19:04 Test Item Value Reference Range Interpretation Comments PARTIAL THROMBOPLASTIN TIME 35.8 seconds 22.5-36.0 (BEAKER) (test code = 760) Prothrombin time/[id number] 05:18:23 Test Item Value Reference Interpretation Comments [...] valves. Lab Interpretation Normal (test code = 37769-9) [facility]/[id number] 05:18:23 Test Item Value Reference Interpretation Comments [...] valves. Lab Interpretation Normal (test code = 52291-5) [facility]/[id number] 05:18:23 Test Item Value Reference Interpretation Comments [...] valves. Lab Interpretation Normal (test code = 85379-4) [facility]/[id number] 05:18:23 Test Item Value Reference Interpretation Comments [...] valves. Lab Interpretation Normal (test code = 48903-2) [facility]/[id number] 05:18:23 Test Item Value Reference Interpretation Comments Range Protime (test code = 13.9 See_Comment [Autom ated 5902-2) message] The system which generated this result transmitted reference range : 11.9 - 14.2 seconds. The reference range was not used to interpret this result as normal/abnormal . INR (test code = 1.09 See_Comment [Automated Nifti1-6) message] The system which generated this result [...] valves. Lab Interpretation Normal (test code = 17875-7) [facility] Center[facility]/[id number] 05:18:23 Test Item Value Reference Interpretation Comments Range Protime (test code = 13.9 See_Comment [Autom ated 5902-2) message] The system which generated this result transmitted reference range : 11.9 - 14.2 seconds. The reference range was not used to interpret this result as normal/abnormal . INR (test code = 1.09 See_Comment [Automated Nifti1-6) message] The system which generated this result [...] valves. Lab Interpretation Normal (test code = 68721-2) [facility] Center[facility]/[id number] 05:18:23 Test Item Value Reference Interpretation Comments [...] valves. Lab Interpretation Normal (test code = 61068-3) [facility] Center[facility] time/[id number] 05:18:23 Test Item Value Reference Interpretation Comments Range Protime (test code = 13.9 See_Comment [Autom ated 5902-2) message] The system which generated this result transmitted reference range : 11.9 - 14.2 seconds. The reference range was not used to interpret this result as normal/abnormal . INR (test code = 1.09 See_Comment [Automated Nifti1-6) message] The system which generated this result [...] valves. Lab Interpretation Normal (test code = 25344-7) [facility]/[id number] 05:18:23 Test Item Value Reference Interpretation Comments [...] valves. Lab Interpretation Normal (test code = 07335-0) [facility] CenterProth[facility] time/[id number] 05:18:23 Test Item Value Reference Interpretation Comments [...] valves. Lab Interpretation Normal (test code = 62625-8) [facility] CenterProth[facility]bin time/[id number] 05:18:23 Test Item Value Reference Interpretation Comments [...] valves. Lab Interpretation Normal (test code = 68759-4) [facility] CenterPROTHROMBIN TIME/[id number] 05:18:23 Test Item Value Reference Range Interpretation Comments PROTIME (BEAKER) 13.9 seconds 11.9-14.2 (test code = 759) INR (BEAKER) (test 1.09 See_Comment [Automat ed message] code = 370) The system Well[employer] generated this result transmitted ref erence range: [...] WBC 0-0 (test code = 413) POCT-GLUCOSE [id number] 21:11:10 Test Item Value Reference Range Interpretation Comments POC-GLUCOSE METER 158 mg/dL 70-110 H : TESTED A T [facility] 6720 (BEAKER) (test code = [place], 1538) [address]: Hand I Thermal Cutter/Techni kelle ID = [id number] for Re yes, Sairy POCT-GLUCOSE [id number] 19:06:56 Test Item Value Reference Range Interpretation Comments POC-GLUCOSE METER 113 mg/dL 70-110 H : TESTED A T [facility] 6720 (BEAKER) (test code GISELLA [facility], = 1538) [address]: Hand I Thermal Cutter/Techni kelle ID = [id number] for Sutt on, Fadi Hemoglobin and lzbjhmbxxc0932-24-45 11:43:32 Test Item Value Reference Range Interpretation [...] = 4544-3) BRANDI (test code = BRANDI) Hand I Thermal Cutter ID - 6000 Lab Interpretation Abnormal (test code = 90614-2) [facility] CenterHem[facility] and gljlcnryop8905-51-15 11:43:32 Test Item Value Reference Range Interpretation [...] = 4544-3) BRANDI (test code = BRANDI) Hand I Thermal Cutter ID - 6000 Lab Interpretation Abnormal (test code = 48055-5) [facility] CenterHem[facility] and ugoyjlcaks1061-56-07 11:43:32 Test Item Value Reference Range Interpretation [...] = 4544-3) BRANDI (test code = BRANDI) Hand I Thermal Cutter ID - 6000 Lab Interpretation Abnormal (test code = 98819-3) [facility] CenterH[facility] and zolwjmhevh0609-07-72 11:43:32 Test Item Value Reference Range Interpretation [...] = 4544-3) BRANDI (test code = BRANDI) Hand I Thermal Cutter ID - 6000 Lab Interpretation Abnormal (test code = 67665-5) [facility] CenterH[facility] and kfbkwchyzh2325-95-16 11:43:32 Test Item Value Reference Range Interpretation [...] = 4544-3) BRANDI (test code = BRANDI) Hand I Thermal Cutter ID - 6000 Lab Interpretation Abnormal (test code = 85776-9) [facility] Center[facility] and kxefhnvztx4736-67-16 11:43:32 Test Item Value Reference Range Interpretation [...] = 4544-3) BRANDI (test code = BRANDI) Hand I Thermal Cutter ID - 6000 Lab Interpretation Abnormal (test code = 63259-0) [facility] CenterHem[facility] and wufiotyxna1464-99-07 11:43:32 Test Item Value Reference Range Interpretation [...] = 4544-3) BRANDI (test code = BRANDI) Hand I Thermal Cutter ID - 6000 Lab Interpretation Abnormal (test code = 77464-9) [facility] CenterH[facility] and ibkjxhvzlq3723-19-96 11:43:32 Test Item Value Reference Range Interpretation [...] = 4544-3) BRANDI (test code = BRANDI) Hand I Thermal Cutter ID - 6000 Lab Interpretation Abnormal (test code = 76467-9) [facility] CenterH[facility] and vjcxoxdvdw9893-59-11 11:43:32 Test Item Value Reference Range Interpretation [...] = 4544-3) BRANDI (test code = BRANDI) Hand I Thermal Cutter ID - 6000 Lab Interpretation Abnormal (test code = 39207-7) [facility] CenterH[facility] and tifrjiyeda3825-62-20 11:43:32 Test Item Value Reference Range Interpretation [...] = 4544-3) BRANDI (test code = BRANDI) Hand I Thermal Cutter ID - 6000 Lab Interpretation Abnormal (test code = 90784-4) [facility] CenterH[facility] and itomkzxwrq9365-37-16 11:43:32 Test Item Value Reference Range Interpretation [...] = 4544-3) BRANDI (test code = BRANDI) Hand I Thermal Cutter ID - 6000 Lab Interpretation Abnormal (test code = 79447-9) [facility] CenterHem[facility] and cmazedwdfp1841-67-25 11:43:32 Test Item Value Reference Range Interpretation [...] = 4544-3) BRANDI (test code = BRANDI) Hand I Thermal Cutter ID - 6000 Lab Interpretation Abnormal (test code = 91501-5) [facility] CenterHEMOGLOBIN AND YEYZJUJNFJ1603-41-20 11:43:32 Test Item Value Reference Range Interpretation Comments HEMOGLOBIN (BEAKER) (test code = 8.5 GM/DL 11.2-15.7 L 410) HEMATOCRIT (BEAKER) (test code = 26.8 % 34.1-44.9 L 411) Hand I Thermal Cutter ID - 6000POC-Glucose omhni5698-38-67 11:26:36 Test Item Value Reference Range Interpretation Comments POC-Glucose Meter (test 126 mg/dL 70-110 H : TE STED AT [facility] code = 1538) [address] [facility], 770 30: Hand I Thermal Cutter/Techni kelle ID = [id number] for Ector (contract)Meeta Lab Interpretation (test Abnormal code = 14047-4) [facility] CenterPO[facility] [id number] 11:26:36 Test Item Value Reference Range Interpretation Comments POC-GLUCOSE METER 126 mg/dL 70-110 H : [facility] ([facility]ER[facility] (test code = [facility] Barb [facility], 1538) [address]: Hand I Thermal Cutter/Techni kelle ID = [id number] for Brando wayne (contract)Marilee POCT-GLUCOSE [id number] 09:38:49 Test Item Value Reference Range Interpretation Comments POC-GLUCOSE METER 139 mg/dL 70-110 H : TESTED A T [facility] 6720 (AKASH) (test code = [place], 1538) [address]: Hand I Thermal Cutter/Techni kelle ID = [id number] for SWEETIE GASPAR, TUNNELED CATHETER AMPFGAAAJ5290-71-32 08:44:00Reason for Central Line/PICC?->> 21 days of IV infusionReason for exam:->needs antibiotics > 10 days, ESRD, Nephrology does not approve PICC or midline. [facility] 1955 Sex: [...] reported as (Ka,r): 6.1mGy Signed: Krzysztof Heredia Verified Date/Time: 06/26/2021 08:44:45 Reading Location: [place] [address] Angio Body Reading Room RAD, CHEST, 1 VIEW, NON [id number] 08:08:00Reason for exam:->post-opShould this be performed at the bedside?->Yes [facility] : 1955 Sex: FFINAL REPORT [...] Cain Verified Date/Time: 06/26/2021 08:08:37 Reading Location: [facility] Radiology Reading Room Prepare Leuko-Red [id number] 06:01:00 Test Item Value Reference Range Interpretation Comments CROSSMATCH (test code = 2264) COMPATIBLE Unit ABO (test code = O Pos 8475467) UNIT NUMBER (test code = [id number] 934-0) Status (test code = 9809828) ISSUED Blood Bank Product (test code RED BLOOD CELLS = 2263) PRODUCT CODE (test code = U1298L74 933-2) [facility] Center[facility] [id number] 06:01:00 Test Item Value Reference Range Interpretation Comments CROSSMATCH (test code = 2264) COMPATIBLE Unit ABO (test code = O Pos 6047564) UNIT NUMBER (test code = [id number] 934-0) Status (test code = 2431786) ISSUED Blood Bank Product (test code RED BLOOD CELLS = 2263) PRODUCT CODE (test code = E9573E13 933-2) [facility] CenterBasic Metabolic Lwflh9414-19-05 05:17:06 Test Item Value Reference Range Interpretation Comments Sodium (test code = 139 meq/L 779-203 5494-2) Potassium (test code = 3.7 meq/L 3.5-5.1 2823-3) Chloride (test code = 104 meq/L 98-107 2075-0) CO2 (test code = 23 meq/L 22-29 2028-9) BUN (test code = 36 mg/dL 7-21 H 3094-0) Creatinine (test code 5.14 mg/dL 0.57-1.25 H = 2160-0) Glucose (test code = 170 mg/dL 70-105 H 2345-7) Calcium (test code = 8.2 mg/dL 8.4-10.2 L 70843-0) EGFR (test code = 8 mL/min/1.73 [place] [address]-2) NOT ACCURATE CREATININE CLEARANCE IN PREDICTING GLOMERULAR FILTRATION RATE . ESTIMATED GFR I S NOT APPLICABLE FOR DIALYSIS PATIENTS. BRANDI (test code = BRANDI) Hand I Thermal Cutter ID - RAKAN W Lab Interpretation Abnormal (test code = 58585-7) [facility] Metabolic [id number] 05:17:06 Test Item Value Reference Range Interpretation Comments Sodium (test code = 139 meq/L 545-717 0807-2) Potassium (test code = 3.7 meq/L 3.5-5.1 2823-3) Chloride (test code = 104 meq/L 98-107 2075-0) CO2 (test code = 23 meq/L 22-29 2028-9) BUN (test code = 36 mg/dL 7-21 H 3094-0) Creatinine (test code 5.14 mg/dL 0.57-1.25 H = 2160-0) Glucose (test code = 170 mg/dL 70-105 H 2345-7) Calcium (test code = 8.2 mg/dL 8.4-10.2 L 07739-5) EGFR (test code = 8 mL/min/1.73 [place] [address]-9) NOT ACCURATE CREATININE CLEARANCE IN PREDICTING GLOMERULAR FILTRATION RATE . ESTIMATED GFR I S NOT APPLICABLE FOR DIALYSIS PATIENTS. BRANDI (test code = BRANDI) Hand I Thermal Cutter ID - RAKAN W Lab Interpretation Abnormal (test code = 27184-3) [facility] METABOLIC [id number] 05:17:06 Test Item Value Reference Range Interpretation [...] S NOT APPLICABLE FOR DIALYSIS PATIEN TS. Hand I Thermal Cutter ID - RAKAN [id number] 05:00:22 Test Item Value Reference Range Interpretation Comments Phosphorus (test code = 3.7 mg/dL 2.3-4.7 2777-1) BRANDI (test code = BRANDI) Hand I Thermal Cutter ID - RAKAN W Lab Interpretation (test Normal code = 86072-3) [facility]22 Test Item Value Reference Range Interpretation Comments Phosphorus (test code = 3.7 mg/dL 2.3-4.7 2777-1) BRANDI (test code = BRANDI) Hand I Thermal Cutter ID - RAKAN W Lab Interpretation (test Normal code = 18805-6) [facility] 05:00:22 Test Item Value Reference Range Interpretation Comments PHOSPHORUS (BEAKER) (test code = 3.7 mg/dL 2.3-4.7 604) Hand I Thermal Cutter ID - RAKAN [id number] 05:00:21 Test Item Value Reference Range Interpretation Comments Magnesium (test code = 2.2 mg/dL 1.6-2.6 40660-7) BRANDI (test code = BRANDI) Hand I Thermal Cutter ID - RAKAN W Lab Interpretation (test Normal code = 18445-4) [facility] 05:00:21 Test Item Value Reference Range Interpretation Comments Magnesium (test code = 2.2 mg/dL 1.6-2.6 95004-5) BRANDI (test code = BRANDI) Hand I Thermal Cutter ID - RAKAN W Lab Interpretation (test Normal code = 51449-4) [facility] 05:00:21 Test Item Value Reference Range Interpretation Comments MAGNESIUM (BEAKER) (test code = 2.2 mg/dL 1.6-2.6 627) Hand I Thermal Cutter ID - RAKAN [id number] 04:21:04 Test Item Value Reference Range Interpretation Comments PTT (test code = 17214-7) 35.7 See_Comment [ Automated message] The system [employer] generated this result transmitted ref erence range: 22.5 - 3 6.0 seconds. The re ference range was not u sed to interpret this result as normal/abnor mal. Lab Interpretation (test Normal code = 58018-2) [facility] 04:21:04 Test Item Value Reference Range Interpretation Comments PTT (test code = 19008-6) 35.7 See_Comment [ Automated message] The system ic h generated this result transmitted ref erence range: 22.5 - 3 6.0 seconds. The re ference range was not u sed to interpret this result as normal/abnor mal. Lab Interpretation (test Normal code = 97167-5) [facility] 04:21:04 Test Item Value Reference Range Interpretation Comments PARTIAL THROMBOPLASTIN TIME 35.7 seconds 22.5-36.0 (BEAKER) (test code = 760) Prothrombin time/[id number] 04:20:24 Test Item Value Reference Interpretation Comments [...] valves. Lab Interpretation Normal (test code = 67019-6) [facility]/[id number] 04:20:24 Test Item Value Reference Interpretation Comments [...] valves. Lab Interpretation Normal (test code = 21081-8) [facility]/[id number] 04:20:24 Test Item Value Reference Range Interpretation Comments PROTIME (BEAKER) 14.0 seconds 11.9-14.2 (test code = 759) INR (BEAKER) (test 1.10 See_Comment [Automat ed message] code = 370) The system [employer] generated this result transmitted ref erence range: [...] 4.0 See_Comment [A utomated message] The system [employer] generated this result transmitted ref erence range: 3.5 - 10 .5 K/L. The refe rence range was not u sed to interpret this result as normal/abnor mal. RBC (test code = 789-8) 2.54 See_Comment L [Au tomated message] The system [employer] generated this result transmitted ref erence range: 3.93 - 5 .22 M/L. The refe rence range was not u sed to interpret this result as normal/abnor mal. MCHC (test code = 786-4) 31.2 See_Comment L [A utomated message] The system [employer] generated this result transmitted ref erence range: [...] L [Aut omated message] 777-3) The system [employer] generated this result transmitted ref erence range: 150 - 45 0 K/CU MM. The referen ce range was not u sed to interpret this result as normal/abnor mal. MPV (test code = 10.7 fL 9.4-12.3 46280-4) nRBC (test code = 413) 0 See_Comment [Aut omated message] The system [employer] generated this result transmitted ref erence range: 0 - 0 /1 00 WBC. The refere nce range was not u sed to interpret this result as normal/abnor mal. Lab Interpretation (test Abnormal code = 21408-5) [facility] (Hemogram only)2021-06-26 04:04:58 Test Item Value Reference Range Interpretation Comments WBC (test code = 6690-2) 4.0 See_Comment [A utomated message] The system [employer] generated this result transmitted ref erence range: 3.5 - 10 .5 K/L. The refe rence range was not u sed to interpret this result as normal/abnor mal. RBC (test code = 789-8) 2.54 See_Comment L [Au tomated message] The system [employer] generated this result transmitted ref erence range: 3.93 - 5 .22 M/L. The refe rence range was not u sed to interpret this result as normal/abnor mal. MCHC (test code = 786-4) 31.2 See_Comment L [A utomated message] The system [employer] generated this result transmitted ref erence range: [...] L [Aut omated message] 777-3) The system [employer] generated this result transmitted ref erence range: 150 - 45 0 K/CU MM. The referen ce range was not u sed to interpret this result as normal/abnor mal. MPV (test code = 10.7 fL 9.4-12.3 85748-5) nRBC (test code = 413) 0 See_Comment [Aut omated message] The system [employer] generated this result transmitted ref erence range: 0 - 0 /1 00 WBC. The refere nce range was not u sed to interpret this result as normal/abnor mal. Lab Interpretation (test Abnormal code = 52009-5) [facility] (HEMOGRAM ONLY)2021-06-26 04:04:58 Test [...] WBC 0-0 (test code = 413) POC-Glucose [id number] 21:57:30 Test Item Value Reference Range Interpretation Comments POC-Glucose Meter (test 204 mg/dL 70-110 H : TE STED AT [facility] code = 1538) [address] [facility], 7[address] 30: Hand I Thermal Cutter/Techni kelle ID = [id number] for Rodríguez Cancino Lab Interpretation (test Abnormal code = 45088-9) [facility] [id number] 21:57:30 Test Item Value Reference Range Interpretation Comments POC-GLUCOSE METER 204 mg/dL 70-110 H : TESTED A T [facility] 6720 (BEAKER) (test code = YUDY Barb [facility], 1538) [address]: Hand I Thermal Cutter/Techni kelle ID = [id number] for Ad alana, Kimetra Type and screen, automated ([facility] Lab)2021-06-25 19:44:00 Test Item Value Reference Range Interpretation Comments ABO/RH AUTOMATED (BEAKER) (test O POSITIVE code = 2260) Ab Scrn (test code = 890-4) [facility]GATIVE [facility] ([facility] Lab)2021-06-25 19:44:00 Test Item Value Reference Range Interpretation Comments ABO/RH AUTOMATED (BEAKER) (test O POSITIVE code = 2260) Ab Scrn (test code = 890-4) [facility]GATIVE [facility] ([facility] Lab)2021-06-25 19:44:00 Test Item Value Reference Range Interpretation Comments ABO/RH AUTOMATED (BEAKER) (test O POSITIVE code = 2260) Ab Scrn (test code = 890-4) [facility]GATIVE [facility] ([facility] Lab)2021-06-25 19:44:00 Test Item Value Reference Range Interpretation Comments ABO/RH AUTOMATED (BEAKER) (test O POSITIVE code = 2260) Ab Scrn (test code = 890-4) [facility]GATIVE [facility] ([facility])2021-06-25 19:44:00 Test Item Value Reference Range Interpretation Comments ABO/RH AUTOMATED (BEAKER) (test O POSITIVE code = 2260) Ab Scrn (test code = 890-4) [facility]IVE [facility] ([facility])2021-06-25 19:44:00 Test Item Value Reference Range Interpretation Comments ABO/RH AUTOMATED (BEAKER) (test O POSITIVE code = 2260) Ab Scrn (test code = 890-4) [facility]GATIVE [facility] ([facility])2021-06-25 19:44:00 Test Item Value Reference Range Interpretation Comments ABO/RH AUTOMATED (BEAKER) (test O POSITIVE code = 2260) Ab Scrn (test code = 890-4) [facility]GATIVE [facility] ([facility])2021-06-25 19:44:00 Test Item Value Reference Range Interpretation Comments ABO/RH AUTOMATED (BEAKER) (test O POSITIVE code = 2260) Ab Scrn (test code = 890-4) [facility]GATIVE [facility])2021-06-25 19:44:00 Test Item Value Reference Range Interpretation Comments ABO/RH AUTOMATED (BEAKER) (test O POSITIVE code = 2260) Ab Scrn (test code = 890-4) [facility]GATIVE [facility] ([facility])2021-06-25 19:44:00 Test Item Value Reference Range Interpretation Comments ABO/RH AUTOMATED (BEAKER) (test O POSITIVE code = 2260) Ab Scrn (test code = 890-4) [facility]GATIVE [facility] ([facility])2021-06-25 19:44:00 Test Item Value Reference Range Interpretation Comments ABO/RH AUTOMATED (BEAKER) (test O POSITIVE code = 2260) Ab Scrn (test code = 890-4) [facility]GATIVE [facility] ([facility])2021-06-25 19:44:00 Test Item Value Reference Range Interpretation Comments ABO/RH AUTOMATED (BEAKER) (test O POSITIVE code = 2260) Ab Scrn (test code = 890-4) NEGATIVE [facility]2021-06-25 19:44:00 Test Item Value Reference Range Interpretation Comments ABO/RH AUTOMATED (BEAKER) (test O POSITIVE code = 2260) Ab Scrn (test code = 890-4) NEGATIVE [facility] [id number] 11:31:12 Test Item Value Reference Range Interpretation Comments POC-GLUCOSE METER 130 mg/dL 70-110 H : TESTED A T [facility] 6720 (BEAKER) (test code = [place]UD[place], 1538) [address]: Hand I Thermal Cutter/Techni kelle ID = [id number] for PH KATHI (V), INES RAD, CHEST, 1 VIEW, NON [id number] 09:04:00Reason for exam:->post-opShould this be performed at the bedside?->Yes [facility] 1955 Sex: FFINAL REPORT Chest AP portable Comparison exam: 06/24/2021 History provided: Postopevaluation Heart size magnified by projection. Lungs grossly free of acute disease and vascularity normal. Signed: Wero Alvarez Verified Date/Time: 06/25/2021 09:04:07 Reading Location: [facility] Reading Room [place] [address] 1.310.12 BASIC METABOLIC [id number] 03:58:40 Test Item Value Reference Range Interpretation [...] GFR I S NOT APPLICABLE FOR DIALYSIS PATITONY TS. Hand I Thermal Cutter ID - [id number] 03:40:57 Test Item Value Reference Range Interpretation Comments PARTIAL THROMBOPLASTIN TIME 46.7 seconds 22.5-36.0 H (BEAKER) (test code = 760) PROTHROMBIN TIME/[id number] 03:39:54 Test Item Value Reference Range Interpretation Comments PROTIME (BEAKER) 13.6 seconds 11.9-14.2 (test code = 759) INR (BEAKER) (test 1.05 See_Comment [Automat ed message] code = 370) The system [employer] generated this result transmitted ref erence range: <=5.90. The reference range was not used to int erpret this result as normal/abnormal . RECOMMENDED COUMADIN/WARFARIN INR THERAPY RANGESSTANDARD DOSE: 2.0 - 3.0 Includes: PROPHYLAXIS for venous thrombosis, systemic embolization; TREATMENT for venous thrombosis and/or pulmonary embolus.HIGH RISK: Target INR is 2.5-3.5 for patients with mechanical heart valves.[id number] 03:34:10 Test Item Value Reference Range Interpretation Comments PHOSPHORUS (BEAKER) (test code = 3.8 mg/dL 2.3-4.7 604) Hand I Thermal Cutter ID - [id number] 03:34:09 Test Item Value Reference Range Interpretation Comments MAGNESIUM (BEAKER) (test code = 2.3 mg/dL 1.6-2.6 627) Hand I Thermal Cutter ID - BSCBC (HEMOGRAM ONLY)2021-06-25 03:11:29 Test [...] WBC 0-0 (test code = 413) POCT-GLUCOSE [id number] 22:14:10 Test Item Value Reference Range Interpretation Comments POC-GLUCOSE METER 185 mg/dL 70-110 H : TESTED A T [facility] 6720 (BEAKER) (test code = YUD[place], 1538) [address]: Hand I Thermal Cutter/Techni kelle ID = [id number] for En nis, Sheryl RAD, ABDOMEN/KUB, 1 VIEW [id number] 19:49:00Reason for exam:->concern for ileusShould this be performed at the bedside?->Yes [facility] : 1955 Sex: FFINAL REPORT Abdomen dated 06/24/2021 Comment:Abdomen was examined in the supine and erect position. There is paucity of air in the small and large bowel. No mass, pathological calcification, or free air is present. Impression: Nonspecific gas pattern. Signed: Andrew Palmer MDReport Verified Date/Time: 06/24/2021 19:49:12 CT, CTA CORONARY, W/ YOEL [id number] 16:36:00 [facility] : 1955 Sex: FAddendum BeginsREPORT STATUS:A Impression: Mildly nodular appearance of the liver margins. Please correlate with underlying liver function tests to exclude chronic liver disease. No abnormally enhancing lesions in the liver parenchyma.Low-density lesion in the right lobe of the thyroid gland. Recommend dedicated thyroid ultrasound for further evaluation outpatient setting.Other findings as mentioned in the file machine operator report.No additional significant nonvascular findings identified. Signed: Lise Andrade MDReport Verified Date/Time: 06/24/2021 16:36:13 Reading Location: [address] Radiology Reading RoomAddendum EndsFINAL REPORT CT [...] (< 1mm) were obtained. Please refer to [facility] regarding the medication administered [...] erformed. Coronary calcification was analyzed using the Vit[employer] system software. These are the results of the calcium score evaluation (threshold = 130 HU): LM: = 0 LAD: = 993 LCX: = 345 RCA: = 33 Agatston: = 1371 and bypass Reference ranges for calcium scores are provided as follows([place] Clin Proc 1999; 74: 243-252): 0-10: minimal [...] identified in the left main coronary artery. Theproximal mid LAD has severe calcification identified. Patient [...] to the RCA is identified. Regarding the [place] coronary arteries, diffuse calcification identified the proximal LCx making accurate ass essment limited. 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 NON-VASCULAR: A 1.2 cm hypodensityis identified in the right thyroid lobe at image 7. An addendum will be dictated thereafter by Upper Tier Radiologist if dedicated thyroid ultrasound scan is required. The chest wall and mediastinum appears unremarkable. Patient is post median sternotomy. No significant adenopathy is identified in themediastinum. In the lung windows, no endobronchial lesion is seen. Moderate right pleural effusion is identified with associated atelectatic changes present. Trivial pericardial effusion identified in the left base. The pulmonary vascular appears to be somewhat prominent suggesting a degree of cardiaccongestion. Correlate with clinical examination. A juxtapleural nodule is identified, at image 24, measures 6 to 7 mm in diameter. Limited images of the upper abdomen reveals no acute abnormalities. Itis uncertain if the liver edge could be mildly serrated. An addendum will be dictated thereafter. Inthe AP orientation, the spleen measures at least 13.3 cm at that is minimally prominent. At image 47no wedge-shaped structure is identified in the mid spleen, and may represent infarction. Trace perihepatic ascites is identified. The IVC and hepatic veins are prominent, as expected. No acute bony pathology is seen. CONCLUSIONS: 1. Quantitative coronary artery calcium Agatston score of at least 1371,in the background history of coronary artery bypass [...] graft to the RCA territories are widely patent.3. The central pulmonary artery is prominent. Bibasal [...] <6 mm High-Risk Patient: Optional CT at 12months Nodule Size 6-8 mm Low-Risk Patient: CT at 3-[address] at 18-24 monthsNodule Size 6-8 mm High-Risk Patient: CT at 3-6 months then at 18-24 months Nodule Size (mm) >8 Low-Risk P atient: CT at 3-6 months, then consider CT at 18-24 monthsNodule Size (mm) >8 High-Risk Patient: CT at 3-6 months, then at 18-24 months 4. Normal thoracic aorta. Scattered calcification is seen. No ectasia or aneurysmal dilation is identified. The left subclavian artery is widely patent. 5. Other findings as described above. 6. An addendum will be dictated by the Upper Tier Radiologist regarding the nonvascular findings. THE REPORT WILL ONLY BE CONSIDERED COMPLETE AFTER THE ADDENDUM HAS BEEN DICTATED. Signed: Dung Fletcher [facility]PITALeport Verified Date/Time: 06/23/2021 08:29:48 Electronically signedby: LISE ANDRADE DO on 06/24/2021 04:36 PMPOCT-GLUCOSE [id number] 16:19:22 Test Item Value Reference Range Interpretation Comments POC-GLUCOSE METER 108 mg/dL 70-110 : TESTED A T [facility] 6720 (BEAKER) (test code = YUDY [place], 1538) [address]: Hand I Thermal Cutter/Techni kelle ID = [id number] for Aditya brewer (contract), [facility] Tissue [id number] 15:29:08 Test Item Value Reference Range Interpretation Comments Case Report (test code Surgical Pathology = 104) Report Case: [id number] Authorizing Provider: Logan Russo MD Collected: 06/18/2021 11:41 AM Ordering Location: [facility] Received: 06/19/2021 03:44 PM PERIOPERATIVE SERVICES Pathologist: Tom Paige MD Specimen: Mass, MITRAL VALVE MASS- for MICROBIOLOGY then pls send to Pathology DIAGNOSIS (test code = [id number] 3220) uZzEwMzNcZnRuYmpcdWMxIH tccnRmMVxlcGljOTYwMVxhb tPmODGguNJfD6MmvpczIUaq NT9vZU7miSwztWYeaADiMKX vTnLnp9smc376qYYgx3dbXV VNnizpuZt9nKizE37eg2B4E qmmS38qfQDtSYX3OSHhPUBe wOZyLJDbNPL9QKWkvXTtH5r aPDLbVV2teeawWTvsQSnjJY KsdGK5MZZpwWPjR9VcKHMrQ FklVJHezgq7LaSgAv5xqGUw eTcyMFxwYXJkXHBsYWluXGZ fZhNmMZ9hTLEDYiJsJI0LDR JBTCBWQUxWRSwgREVCUklER R8EIdDwEV5ZEGUTMJDMExtd cGFyIEZJQlJJTiwgQUNVVEU sXA8NRBHJDTVZH1ZYLUZXK4 TZD1EFVYJHChGsK4SFQ2kEL SQUEJhYGg9lwFBsUMWZHCHG KIyoW2UOBS2QWNTYYuXXVfZ DC7YMP1KYAZ4PJ5MHVAVMKv XETU3YIG3FIRYETDCRPcTPH YIFKkZOU4hJN4kjOMaiMSHo Z60SHzKCURFMY08bO9pIXKT OPDOSI4MOC0vRW8nINFtrN4 WAAZhTZbLWShXSJDVNTZ3XO tVUBC9hYIMqxd48EDT1QxUh m3S6YNF7LFEaOCWcv9qdCGM mbGFuZzEwMzNcZnRuYmpcdW TrRDHmFpAtf5paz827wFEvb 3glIBEjQzH6kWCeAPFrvDQk D904IATyWZfif9nqp5VsYXY wxPAgx9M1IRXYdmiccUp9gX pdY73eg1W1ZfhpT2beXEIxH LYsA2PhNY6hKYCwIkj7CWA8 VDA3FOQwFVMmU2NuGT2rWQR xzGYwVPd5c2tgaEjdZAEzFM K8y1nvDXzbtjXpSE9mun2kr Ej1t5mzizEgCNMnODKtcZDU VMBtH0ItgYgsTz6fzRr1aDc pDzkvTUT5Tot3YX2vfh46lk t3jKuhPWUzwusrSdM2EUzmU FLwvendPNy7IPrbTTPmjXR6 OPXdcPErK3IcXDTsPV2jdfa 9RWM3OEhpHASuBxM6JUKoeY PxSLOdsZqwLEmny976JBK8E dKbOR9jB5Dca3B5mY4cfURu BDElqTNeUmGnZGCzyk2afYS xEOoav4WrSEY9poV7vNRakY UiGTTvUhT3HRtbRW3fzp27Z PHqOID7sh0rlPNpjAdmqdBn lZCiFSurY6PpYZMzh012RQC gO6IuCHGhe1R7zrDyQvMqPT VqqOX2vuF9KSSpCI9mikrpj 4ulGJdzZWqoTSRyxuV2whQ1 DEZzyCMzI7KjzB0tJPQwHI3 dspauh9tzXMT9VBpeJNSbOS I3GbLjNSWfe1Rxbbe5FkVmr 0YseOFwFAfeT42ds706BPXd vcSjR0dbtFPqppyivHZbcko fKIfqrhD1AHPyKTihfkowEQ TuITkvI1ulYhBoRCEttUhgN Bfiw6AoBSQaQGGdVxOqkQTb VNEaBpa4LXHfqRSlIDBeUrG fE1wlkzzoLkTTMZDvo1vwZ2 uqkWEKuCMhM4WfRYwmdhBsC RmiEAsyLcXjHHSdPG11BAD3 KREnrb86 CPT Code(s) (test code m8mykIMiXQSymOV4XcGtOXU = 3357) vk7jjd0DguKJipWDfHEiroW SbdxPuln50qMN1uK19LP2mM MIeCaA2CFQjrkJ1Smq1BHNk IMLcqJZoB431d9lzc1urjuE qhPL5pKqvGQXfobtgCvF1UC dfEWSphkktPIw1RWtqRXRid NM9MLByrOBxW3YcTIRbVL8s izf6AXL4EUlgDIAhIjP3LUW lcIPnZBLpmVvcCSdnx634AD Z0OsPmWVFmeoUawCadhV1uJ cGdELR6YFAkTXihGRelWGFV O6taXKZ7 CLINICAL HISTORY (test y4jysBQhUUEcmMD9KwKzRWR code = 3356) wa9wef9IzwOKahJRdAUwlgO TlvqPzai09aUN8tJ67UU3pJ URjDhN5GHYkzmN8Qsf2THDj UDXyoSNwX144w8uhz1djtlS lyFE6wHqqRJQorgcgPkC9XW oeHUEndhthRBm3JJkfTKLgf YF0QAPutNRoY5OcUMXsWJ1l gqf9RDP7XHeaQJMoPzS3ZVK ovDCgOMFobJjxZJjcc934LR H6QtGzNBWgslKwyDkdbN5pW rLzOMJUjbOiE5EjYKz7uWOp cGFyfQ== SPECIMEN SOURCE (test a9fixGPlEXSpkGV5DnDxEPI code = 3377) kp8ykk4VqmBSdjICvFUqhzJ WfrzOtzi26dTT3nK65KE8lH AViImA7AARtzsD4Zgh3JQGl XDHroADrM058m6xuh1gdylE giER3wQikIKOfnvzuCkQ8SU vdHAYpanovVAl3SKkvLDQvh HZ2TMBwjGMbQ5MuVRViDD9z wrl3GYO6SYbsHMHbGbW4ELD wvEMaVGRcsAyaKShvo988FT K3ZzNgMVSyrnMfbHdisT4xE nMyMCBNaXRyYWwgdmFsdmVc cGFyfQ== GROSS DESCRIPTION m8arnNKhORAnkIHrRrNeCTJ (test code = 3366) mQCObf1vqAEAeuZRuWaZrAs NcZnRuYmpcdWMxXGRlZmYwe 6ijd227zUHpt2cdPJExEaZ6 rYKuZNTfiQIxI590GRMkDSl hz9kyb6KaWDBkjMTqe6W5LS ZWmtusgBk3iZuxT34ii9N2X fikM6fhYZJrRGVkM9CfXL7n HTWtHbw3BLO1FBF0AURyQRO pU5LfER2uTQGssGYsTNg2x0 ikkKgqCDRgHMA5c6siVVhdo jMlOJ2ugw3awUd4u0phifMz MBSkGXVieCNDGBDtV9DioEv gSd3eoPg7jAifAkdxOAH2Nc u2SQ3ppi27izn0vKdfDBZyh eguKoF2WAikYICidffrRXy6 MFxtYXJnbDcyMFxtYXJncjc yMFxtYXJndDcyMFxtYXJnYj lfEBcsGTKpUOI3LFqrk027M AN7XXcqk6kib9vitJCzLhp8 OMQgIdWtVihcTHioh0Hlm4v yUTXcyr7fKNB4mWJusEhrr7 W5eUSePAOxyJWlhsAbPDJeE jW7KCwvCS0siv91CJBkBRY0 io0izWUcwUhhwkPmiCEcVIt mZ8XiIHIgb647COUdA8NeAL Wjj3X5piUfYwVfSNYgcFJ5z dO6MMEwPNe1bIJykuY4atOl kYPtK4dopD57UsLikRArX9E drK77IeFsiCCeN7ZbxF92Wl QyzSCjR4AtyG23DqJdyESlY PSlvSZfAl8hsSSjyJTfr3An pQXiRUkvN77wj879PRCbxvI mT5yfjLSklrupgRJphqovTN wgitQ2HKViFMPjEFheVOMkA GZzMjBcbGFuZzEwMzNcaGlj gGleCYrsWhXzKXFrETqoT4r cZjBcZnMyMCBBLiAgUmVjZW e0EIQjwW1nGr3rfNCrsR1us ZIeGKllLIE1oQWjNVQzFTQr ODChWE41D1LnaY9kb2MpOJB fj13aBZ5cZPFsnIOeXCkjkh FsdmUgbWFzcyIgaXMgYSAxL bLsX46jlW7glVGzX0OpLOE3 IDAuMyBjbSBpbiBkaWFtZXR axaG8RM9qhJrahfV0aPBpaH ByIYcmxUGgFSoeEOI4Tv9xe ULjIEEjieX6j5GiXKrdSUPh n1FkmWZjUNLdZiohKPYaiWL tQBVgriWgkEkibH3kPjLvEo MyNFxwbGFpblxmMVxmczIwX DjgbvncHOXtBZoeL9qtWxLb DWCtzMskSLdop3UfSXKuNAD zCdSzDHLzERVup0wgPJ44GF xwbGFpblxmMFxmczIwXGxhb ucyMFPdZAwoW6nmZdAgNBDn yPavNGzlq3MvWWXeWJYqJkL ccGFyfQ== MICROSCOPIC g6npzVFnTOJnbKC2OhVaKCW DESCRIPTION (test code vg5yxm3AwvMMkfATpRQcmtZ = 3371) EhmfCcxo88qNO0vV86ZQ9tX NLyVvF5QMUcjqE9Xmv4NSGd NILbzVCaQ566y2uut8gugtX qlPJ5yUumNCJwpyqpJqV9FP hhYXGbodhzIGo7DJwpTTEpg ZF7QBAbfRVkP4MaAARrMS3p enw7IRV1NKzhMPUsHeX9LMO rkKCcKLZnfNzsZEghe369KC Z4WtAeRKOcmpCexJgzxQ9rC iWuMVTVKHIww2ThXMMsGBYo cn0= SPECIAL STUDIES (test v6vixJFrSIGyzML9NkZhNQW code = 3376) cm7dgj8XeqYRpmGWfZWtbwG LwdhPgcs20cCO1oG00LU5sV JFzPpB5OQTrydQ7Nvt4FRHz CSIwqQHtL086LHSgDBRcrWs tcfe8oA26HGMdbT4weZWwNG uixnOtBSdvgbUdeeXmNmh6E HN9yItiEBVfbcthPkW2JJlf HFResmyeXJh4FMvuFGHjrDY 1ZNBnrZDgO1LsUKFrQE3nol d1YKI9NMmqHTNlGvE5CJDwc ILzYJDctCfpFPrih380UUZ9 LlLpWCHojqXrnWfalK2jXzO cZnMyMlxjZjEgVGhlIGludG PwjCUtrWD4pT6hRP3fEBVre LRxG7CaCWTsisAywMEsOYC7 hZMbqOQcIT4hBOgxuLXrr5f sf3ApX3fmxOthoPP3FE9xVS SjLMTrAVand0OkjD0iPpczV EDvK0SdDGHGS2HQNAHrDHWK Rn1AAwWKClEwMfASTo1eEEw NUywgQUZCXHBhclxwYXJkXG NfCNLPi927vv4gJVWppJRha sRSzUXilP9tNZxyKVswCBmw rHXaMLckv4bnPBWec5r0lQU qTEKvjqAew5ujPPutthHiPC OyzDErvWBfGITms67jHGevk QdpeBroHDHgs1UfwKeqh3Ns OmRsCIgno5CvT21xuVYggOJ seAdcGQLvyhSyYRBur15iq4 nfMVInPbP6iBAgzRB1yLNhj KZdi6EhxFaiFCHlx6hjCDDg oe9afknmjYVei2HagB8lccp tCBptsFCgxrUgQBKzg9i3yT AjGEWqXQKgDQskrQc8ORBph 099bg1ayvS8gCKcLBA7AWyh YWJsZSBhcmUgZXZhbHVhdGV fYRAlypAoDMJcspYRpM41wr 4poEC6b3LyPM1gr1WqjAG3R WNobmljYWwgdGVzdGluZyB3 ENCoqHChQr7lgQCwACE9HRX fkKdfzpMSzJ4yHQTzWHa2KH CoErEiJzdsiuIHGYEcT2OtW BNwogHhayseVZG9gL9hp1f3 ATuzKk9dGJUaetsop2jtnaH sgBMzl3KfCQYqfeAhd2OpBJ NbloNdoNQeDGUdxrMgcw2ta gKwLGHmDZZsB3LsrxadzIdi tjM8FAFeUTQnbWMtcIpsISM tWHr6QPbpriKve8UePwBqip FarYQdvwVdIA6zVASuuPPjl gNiVOQ8FXGvLDWYFzHaZJEf y9RwYI7aQICkbObwICIohR9 rh3NfULRwn54sMLIsOBSRRY EgaGFzIGRldGVybWluZWQgd JmluZYzgMVdIWTeUARpHG1a AJBiszFhkTLtd6VrcRQxgwC ql9EfjmQzGUQsLYR4YfPDkO LxcMSubWShdvI9z6HjIHCmc qDobMfyxJIttFMiiKAkg7Hq ox6yQYCwc4qwdSskER8xnYI iZSByZWdhcmRlZCBhcyBpbn Dur9AuP6W1gM6fPTfma6FpC f0mTOTpm2KdqsLzKlSGxEqv YWczXj3pUDTcdjjhfAZoS9A ydGlmaWVkIHVuZGVyIHRoZS XPjYjidHVauWRYWPDdspS6o 8F5CLzdiGYpxaBpGS99FDAn NL0rhRNtwLOlx9ZbIAd9YUQ rR3uTSM54GSjtPBKeqTIlvO hmpGLrTYPkQVYivaHdvt2jx PfgwCWpy45wqVL1iFO0DMZn bV3oC1JeNPpnCz8vESPbnen zkARliCseDa6hjDJtiP== Gross assessment was [facility] performed at [facility], code = 2777) Department of Pathology, [address] [place] [id number], Technical component [facility] was performed at ([facility], code = 2778) Department of Pathology, [address] [place] [address], Professional component [facility] was performed at ([facility], code = 2779) Department of Pathology, [address] [place] [id number], [facility] [id number] 15:29:08 Test Item Value Reference Range Interpretation Comments Case Report (test code Surgical Pathology = 104) Report Case: [id number] Authorizing Provider: Logan Russo MD Collected: 06/18/2021 11:41 AM Ordering Location: [facility] Received: 06/19/2021 03:44 PM PERIOPERATIVE SERVICES Pathologist: Tom Paige MD Specimen: Mass, MITRAL VALVE MASS- for MICROBIOLOGY then pls send to Pathology DIAGNOSIS (test code = [id number] 3220) uZzEwMzNcZnRuYmpcdWMxIH tccnRmMVxlcGljOTYwMVxhb gMbSUYrwJQhD6ZiqwntJUfz OP5jCL1eeVlwhVBedBArPZM rZhJoa8gjy491oBUqu0fyJD NAkeyltMy5sPjqK80yh7M6I cemL83zrCWbZFI5CZLzOLRi tKEaEVVkHBN7JZKaxXPxY1f kOZBhSV6waadwCNvwFZqpWH OeaFH7CLWjeIPqB0KrRRAaN LqlGJYadme4QcPvXz7duCDb eTcyMFxwYXJkXHBsYWluXGZ gWgQpVH8xXAZENaWuUZ6GTE JBTCBWQUxWRSwgREVCUklER R4HVuSlVA1KAVBCJQGSTfug cGFyIEZJQlJJTiwgQUNVVEU pHU4SVILXNQDIP8GLPVEBX1 EPR1RVCLSCUrCjV2YAW8vQK FIYTSnBMc5umSGqJNSZKCOG LNjwY1FAIK5REZAMHcWJZwT EX2DYM9ITRU3KP6TKTZAZNi OUQH9UAC4RSRSBNQSHFuTVN TCDZxAPR2iTJ4grHVvqOMJz O40BFeJZTRANI21oL4zMIFT LSBERO9HSW7hVA0mMJUbkA8 FMAOuHBhTWLiAGVKNIOJ4BD tANHA2bTOHckd09UDU1CnSr j8A5SNR4JPDuCTPsf2woKBR mbGFuZzEwMzNcZnRuYmpcdW KdSPOlRwIdd6fxj351mULnz 0pcXJDoVnN5lDQqLVVmcJSn D377DYGyJQifz0sfd3LdBBH dhYWit8C3QRBYlipwhIv0qR emR04kp5C1IrjcU9anQPKbI AAkD1LaHZ0sFJEmIck2LYA5 UWQ3WPGiGYMgS4ScHX1jZJI ygGMrEEx9e3mskBeyDRPjPS T8w4nrUKebfwMeJA7qnm8wt Pi2f1ogsgPtCLMbKMRkbNAE NHIuK5ZypUvmSn0wiMz3aAq lSvboWKE0Mgl0XZ8xuy57ah z2dUviZSWjqnwuJuW2WHixU ZEwkcwyYOr4BLtkVWScgQM3 MNZxeSWvZ7HsQLIvEM5wzmg 5UPE2COpaRKLrMoU2FXIgeV XrYLFqcGpdFVtel314MAN6H eOkLI6lJ3Enc6G1zB1alIDu JHGgdVCgFhLyWRYrpt6oaMX nKRsgu5DkVFT4iuQ1lPEfsT DxSCZzTuZ7DAuwJP8eow40Y LGvISU2iy3ohCCgjYfizaIg rRAdSImnX1SiXASbe073FBB dO8UnYMMyp9P5dbLbLsZkEA GbhTC2ltE9CYViAY4sfwdtm 8oyXLtiTWtmJYDttkM2zvH7 BEMvjBPuR3PvvS5pEURjYS2 gaiotw7jwNEZ2WAitFFLdRZ Y0XfBePBGee1Dfltx7OfFmk 7FldTIvPVpdY30jo304IRJz dnWvN9mnjXJebyoeyIBkjhh tCVuysjA1HBAtHZilhuuaYS YpBPfwJ2hnAbAoIFEzaYgzJ Brbw1JoSEAaRTQtJwRnmQUr TRPeZpp6VSTgkVThLZIiRkC jM8cybfvkTsCFJOPih6ykZ3 gnsTZLrSSwG7MkVXvjvzTdY FzeLKejVhUiLGPzVV42XBI6 LJVtki92 CPT Code(s) (test code u8wwxQZkITRixFX8TuEwAKS = 3357) sv2atk7BxxTMnoLWvTFnmoJ SdiyKlan42yMK1nZ23ES0iU HWwKiP3JPKdhfJ9Ffg7RAEq MFZauIInN282g3aac9kdifN plGY6zNltIPWgsiktOrB8YY krZNIhbpquBMo7KPtyWOCbv LW3PWYlyVEiW5GeEZKxUZ6c kaz7HCU6AVecRULeXeP8QTG ckQCdRSUgqFmzJQjbw621ZZ A3FfRyKQRswqQyqMehhS9eS jUgSAE6JXHsMGniCTntKCXB P7irNBL6 CLINICAL HISTORY (test c6bwxXRkLJZlhFV3EsWtONH code = 3356) lw4nia6WdkWTrxBTxOKgudS OjqfTmjw72bTM1gY83YJ9nE FLpRhO8FBCbjyR5Awb1ULWa RKRgxLHwO200o3txi2hvrlJ kmIE9lDgjSWLjbqnbHcJ1JD wdHVGgmhabTWa2LSisYGLab SL2CUGqbIFbV1IcOIMaHG6i cii7ZUZ6UQliOXGfZuJ3TLI fuTOtKIDtxYnaSHsab405KI S6SeQxZNUgtaLkpMrbsL8sI jCaYJXRbfNpI1OnGVv4jISj cGFyfQ== SPECIMEN SOURCE (test v9tqnAHxQPJnaPA5GvCeVLV code = 3377) vl8scp4XpuVOzwTEzCWpxsP YzkdLhlq38rLW9oY47GD9wK PIdObK5XOLaqtI2Jst6UEGy KUYbbLYfA787y0nds8hxhwU beFN3nCmwVTKtuuxaAcZ6XS zaELEurgnvVWq5BEsmHKJnv PS0LPCgaETtX4NtBSPoKR5o udg3SAO6IQrrUASkAcO6NFA liEEoLJGkwZfiLFfbt069KV Y4EwVcIRZbywIqwZkodY0gR nMyMCBNaXRyYWwgdmFsdmVc cGFyfQ== GROSS DESCRIPTION v0bopHPvNYNjlGRkHfWtPPK (test code = 3366) bBJImg0veDAMjqNZkQxUaPs NcZnRuYmpcdWMxXGRlZmYwe 2fns609sHQxx9dgUPBaYeP3 jNAcSTNgwWZkF441DVFbIVq vu3vxc4UjGIVxlTSxr4C4SK KMhrbdfKk2yPwtU75gx7N2X priU8srYFTbHUSuA2YeXE5o GRBiIyg2BBA0PCQ5ZOBzDXR xK0YfXI1gNBCmxLPxGSg0d0 tpfFdoGUSnIMQ6j8upAWjrw nNyBY6vru6vyXf7t2tarfGa ZJVaERZxtUFFVXRxO5RpuSd jMn9jmYg9iXnlDcizNWD6Zo o4FD9nvw80cfr4jDzqDRRlw dwvUpE5TIsnLEBtamabRVi7 MFxtYXJnbDcyMFxtYXJncjc yMFxtYXJndDcyMFxtYXJnYj kjWDwhIKJfYWZ0EXaxo606M RR2KZqfn1xoh8zbwPHxVgh7 QDMcBnHbJlgyRTrms8Goh3j qHCZrjh8pQDL6uBHydCyjv6 X1rYAoTQTkwKKbrlQqEZZeD zR7TVfhLE5kgu72HLAaTCO4 qy2djPWykJttysBhlCQeRXj yD4EqKINrw287IGSjX3DiXH Qdf7F0ncVbHlIjHLWhoJE2l vM8GKKfNXv2yADfmoY5azOp wJVdT9qmfG80WqQwfDCcW8D cmK03RfRttUBqD0UfhN23Rt LqrALsD7QmjL15OcGpkEKcT IJzvFQjPm7ciVVnaKWri6Sl uJTgWEftZ39ah568NCIextB zO8nbtFLmgrqepVNdrrkkKU bvzmV7XDAxRVDrMXpcWPTiJ GZzMjBcbGFuZzEwMzNcaGlj yEtxDUlmMcLgRTAjBKzgP3w cZjBcZnMyMCBBLiAgUmVjZW i1RBEnpU5sWn7wxZVshB4yu ETmSSbsBLW3aSKwXMYhNDNu TSWwVM36Z6InvI8gr4VmMJZ gn69gNM8yBMBwaGPiKLgrna FsdmUgbWFzcyIgaXMgYSAxL dBvX17piT0vcSFwP1SlCLE8 IDAuMyBjbSBpbiBkaWFtZXR hdnN2SO6kwRtnfvE3uVHogM BeJVztzMCeBRhcLTE6So9cv LUbGCPnhpI4p6CpCRngETXt w7VwfAAjFBLuCxdlBWGcmRP uPPLkqqExhJobrO5mCnIcTv MyNFxwbGFpblxmMVxmczIwX NboppvfUKGmVVvoT0usAzWd AQRzkVfbZRikt2EdMOChPFY wVqPgJTTxQTLva7njHL97HT xwbGFpblxmMFxmczIwXGxhb hrfDWYtXDqrD3qdEzWiGLEh hGgnUCbgt6MxZMBnZKGwAxC ccGFyfQ== MICROSCOPIC l8reyUStJIToxWL7OaVwQGQ DESCRIPTION (test code bk7rup8MsgHDjkBMbCNtmaF = 3371) ElzaXnag78fVZ8xE48TJ9qG TJuZnT5PDJlhbR1Qbq2OIAi AKNotMPbU022o4ktp9hrelW rvVD8kUvjLBYpkychXaT6KV rkVPEjplkfPGd7VVfaSJZxd NB5GNShfBIeC0FkWZPvTR4m aoe5XOH1ESbnMVQeAyX2HKU bnGKfIFYycNnyHBffv207IF O2PiGzLXMbdqWlzWvypH1aF cBtQBVMALWtu6NoXIUnHMUv cn0= SPECIAL STUDIES (test p5wtpTSrHQTawEQ9DlRqPER code = 3376) ap7swj0CdgWJvnBCrFTrxcF RxyeWucn25aHI3sP69CT9eU UTgLvR5IEScbhR1Gby8CGIx MEQjyMRjQ268GXHzXIPcxRj mlvy2jJ62FJOuyB1wxWAjVM rskyWgCOtgpmSvttRkOjs9F JD3qHzeFXWcmjglPuF7GKas WPBbphceYNr5QVdgVXTnsKP 3USBtbVBhU2LqKDYlEG4tva j3OES5LTduTQJnZoL0UTQke AStYFAubTbbRIrli474DXT9 VhQpEBDicaQxkIpidK9sRiE cZnMyMlxjZjEgVGhlIGludG WixMFfsQC3rE7eAT3xUNTpx IJwN6DmUNOfspDywBNrGZU4 aPAokZHyHR7pEPmrmVHpm7y za1YkF0nesDsacKH4HW8qDF GeIRJlNNsuk3NaeU5yEnbnS PFaO6TjBVBBY8FADRQjQNTE Lo5WMiQCJhIiHvDUXf0rAPo NUywgQUZCXHBhclxwYXJkXG VtDDMDf596mi0zTBDriGKiv tAGeDGevD2lFRcgFGatSDmf yQBzWCdvw2bjDMPua7m6yIN jTZLlymJyf6foZFnpunDpAL TdpDJgpTOpNGSyy80eXEszr KprdNglMTSkn9XqoVqma0Eb WgIoOAnfg3OqG39ssTNuqKH xsOokKLIphnBqNZXzr46qk0 ieGVPbZsL4xXNjmHW6vQVdc ZQyh3BvsLfkHMDrc6msRTGu al3yingcxSTvk2YfwY8zmfp hAKiljLKggoJnABSme3q5oW DsAGRwPEVnAPfsxOl0OCXnc 259ov9ckrZ6nHCtATQ4HMno YWJsZSBhcmUgZXZhbHVhdGV uHZLjvbDsAMXdngDRcR67hi 2ftVI9m6SyJU4dc6RciXU1V WNobmljYWwgdGVzdGluZyB3 DZLpgBTmTr7ehAJtXHW1FKU mpPmytcIAbW3rOFKaZYg7MV YsFaFjSywihmFFKHBsJ3PhH HIbsvAeejshDEM2wN0hn4w2 GLnzRd4oETEwaewdc8fzsgS luQRhg7HjWIIztlNvn5AoZQ VqobDkgOWyOXJkmjMqbf3op sOdRRVmWFXfH1MgdcnopPls hzB3XCAwQLJpgUYooQxmHRX bMHf2HWyqefJaq6AnVzXyla FwdKEjejOxYV0lVDDhwRIqi jIoEIR7FVAmGDCJFlAlVZAz u1VbLP8qMEGbxEktYFVkrP9 sb7ZsQZWju34fPATfHFZNCC EgaGFzIGRldGVybWluZWQgd SzirSQbfETrUWUsBYSwIW3b NEEvawFegMLeq7BujHRbyxX jh5FkuzPjYEOqUAF9AcOXhU OrfBWzxLXncbL0m3CrOVMal oBzeDwziSIkfRNtgYDnm6Xm qf7eAMCls7gtaDxrYW1cuZM iZSByZWdhcmRlZCBhcyBpbn Yfu4QmC8U0vP4xMQssg0JcJ t8bHSJhk2HdofMzLsYRuIky OItwZt1wXELkrzbemMKnO3R ydGlmaWVkIHVuZGVyIHRoZS EYhJwziCRuoCVJKPSklhX5j 3N5SIdkgXUmdrYgIH97HCWu YH6dkXRjxKByo8MbPWk5RII fP5yIVE58QRmrIGGikFOnyY yhdNMzCVPaXOMmmhVnlj5vj EvhjGAmk04gjZJ3kFX4LSOm lG0lM8CpUNipSu2cCPYzyic viSTmfFvjFq4jgONazU== Gross assessment was [facility] performed at ([facility], code = 2777) Department of Pathology, [address] [place] [id number], Technical component [facility] was performed at ([facility], code = 2778) Department of Pathology, [address] [place] [id number], Professional component [facility] was performed at ([facility], code = 2779) Department of Pathology, [address] [place] [address], [facility] [id number] 15:29:08 Test Item Value Reference Range Interpretation Comments Case Report (test code Surgical Pathology = 104) Report Case: [id number] Authorizing Provider: Logan Russo MD Collected: 06/18/2021 11:41 AM Ordering Location: [facility] Received: 06/19/2021 03:44 PM PERIOPERATIVE SERVICES Pathologist: Tom Paige MD Specimen: Mass, MITRAL VALVE MASS- for MICROBIOLOGY then pls send to Pathology DIAGNOSIS (test code = [id number] 3220) uZzEwMzNcZnRuYmpcdWMxIH tccnRmMVxlcGljOTYwMVxhb hVwCANzeTBuE6DjgemzUUfc NT6pLE8qcPyisJDgjVIgTUX yXzKee3eau088sHMet9cfVV NXuokgvEv0xVypW30mr8H2C xidI28ieBIdWPN8IKZrQKUi vYOnYBFfVGF3QEGfoFXuM5j ePWEuKH4moenzOIjaAHqoIB VuyOK5MUPefXPwS0LrWMQbZ GtcCJBhszu9RpNyRe3ytLNc eTcyMFxwYXJkXHBsYWluXGZ lZyJvVB4yVVIMFnFuPP0LYA JBTCBWQUxWRSwgREVCUklER S6KKiNcVO4QHHWCZJPLJhlq cGFyIEZJQlJJTiwgQUNVVEU tJV7NIPITEXEND9RPLUIAI4 EMO9DAPTPYJmDqH5DLR5lLR EPWWNdNKw6pgRRxRLEQVVCM RBreS6IGMO9FOIKYKbFRNhO CU1CKB6OUAG8JL1RUPPQUHp YXZS6STA8SXBPKFZUYXrSWP RXBIzKIY8nVA7xtLHxlOEAg E13ZGxCFUTUAU74hB9zUFUH MUJMUF2XFA7tSJ8zGYIptR1 MNOHaIGvBPMwONJIKIQB7OB aFZSD7fKOZbzs20YKH7CeHt o1N4EHW2IRYpNDLre7ihCEL mbGFuZzEwMzNcZnRuYmpcdW XtNJBdUbJsr6jmn981fZPtg 8ppQFOfXwC0hWZxLGWjqYMn B908NLLpGJrdx8oxx0IwLGX spBCvm0H5FIMTvoheqVr6hN vyH41pg6C8AcktU6lwPCYjT BDvC5BjNW9mGPEoAuu6YKW7 KBY0ZIJqPEMpR6SqBX1kWLZ rhXHaRZq0o1shbYtcNSHfTQ B4b0cuFAqrjbEqAM7uey9aq Km7c8eyugKhXZAiMRBxxGDV BPSzJ7RlgJxfIq5hiLi3oNw fFymgLOD3Txx8QP5qkf10hk b5aWhsSBXhkoehLfE9RAiwR LZfqrgfWMf8TQupSPAluZH8 HVNjxOKhN0AvYZKnGI4wdnf 9TWQ8ZYvmRLAkQsJ8MRHlfP JkILOklYftRDzbj559OZD7U dOvTO8iL4Epf5Q4zX3ymDJt TCYaoHCgBkJkLVDjie4leGT lQIruh4JlLUV2fuE2qOUaxI AuISUzSiK4QPcmMJ1idz82D THoCPR0hu1yrBNqkMatvsYx oHSbGNooU7KtSZArl063QVZ pZ9ZpQONoe9I4keIhJbMaOE FweQB6ibH4VJAwGC2kcgvzp 1ywQIdfPFepABPvfyS7amS0 JHHixDBlJ3WjvT0xUNPcUA3 fkhtzm8mpGZY6OUkkZSYpHH E9UoNvEUIdw3Glloh3EwCja 8AwlHLfQKuxD20ia164YELv npAfM2wceOMkhivhyRTzbzs zGZlqgeJ6KFQwABrabdnoKL RuGFvtL6xmOpHgMLJntRgpR Htnt7RkLYRiSSVsRkTlqDPl ZOSdOdj8YPCqaKVnYSRoNuW yO5kctfyePeVSTAOmy0lpR2 pqjWDHzPCeN4WjPRqbuzKoM HekXSlsPdFvCHJwFF58YNE8 NEXrvk16 CPT Code(s) (test code v1hjdGOmJWSrhTA9NcHxJMA = 3357) yn0jkm5ZcfVMaySEqLVugaA QaknYang70uUD0nU78VN2iG KBmVdI6NSMayeE5Sre2HEEt LXEeqNOrY963y6yxc7azftV ehTG3lFekIBTpbuvsYtZ7PK bkXAFfsmipUAv9VVxfPDRye QZ7PNOtdXIoL8JrOMKkSJ6w mtd8HLW8LGsfCEOuBfZ4GLQ pdHJdRPRwbVzgECnxh690OQ V1CdYaGMWtfeTlcEigeL6qM sZwJGV5PFNkSKbaISyoETRM U6quCMN6 CLINICAL HISTORY (test i1zztWZhZWJksBB3VdYqAXK code = 3356) qy4tvp2CfnMSnuFTdBWtewI DkhrHldp25lOK8jB78RX6nS KQfOpV7QDNofbR1Fja5VCWk SDMpuPNeF518w2zzb6wwfcF wzTA8zVvzTHKfypfjUoR4WR spQOUeyrbnLSs8NDasCAMrm UH9MCXzhJCfN6GfUGUxFE8o emu7LDX1WNqbLEKlObO3OWJ rxVJgUEMraCilLCxkm099ZZ R1UlIqMERaxjHrbSgbtI1yY jNuTSENwaMcM1HaWZc2aNWi cGFyfQ== SPECIMEN SOURCE (test k9wexMKwYUDkmSD4LaLrWEA code = 3377) dj8erd7PvwZMmmNAxXTtvoO HtsxEsul95qIY0sO11YO5hO GZzXoP3AOXikwM6Yxm2YOUx MPIdoOEoA299k2ixp2rretE fcZX4pIyyRNMeurlmAlU4WX jbWBLhuolhRQe7FWutRYJeo SE4BUTwpPVcG4BkJYXqMM0q xtt9QNP1XKcmCULlWfE4WGZ iyOXfVSPfsVfnECzwp529PG R0MhCxYEPyvcWyvHhypW3uI nMyMCBNaXRyYWwgdmFsdmVc cGFyfQ== GROSS DESCRIPTION q1hoyQPePFCyjSYgWbInNLE (test code = 3366) rNMWgr8pxKIGrqDGhAkVvGk NcZnRuYmpcdWMxXGRlZmYwe 3get846kTZpa5hkDMIvLgO3 oIPxIOCzcSEzC333NYQbPYl po8nhq5PiFDDtdGXpl4T2JZ AZiehdyVm9aUieN39wv5U7K vdcK8buPILwNJFyE9PqBS0x PHTjNzs3IWR4HSA6ATRqXWQ yX2XsQA5sZPFlqBQwBZw4x2 qexZbcAFCzWKA3m7xfJLzkc gYtDS3tbg1lwLg9v7wtahTa ODRsMVCkxWQZJUSwT7HtfSs iUs9upHy1bIqwEtskTCL0Ic t6PP9unj65jnq7wDtcGEJmb azdMdV3YTznXXYxlgxpKRd7 MFxtYXJnbDcyMFxtYXJncjc yMFxtYXJndDcyMFxtYXJnYj ckMNqhGRScHZF6ODfna814M ZE1KRcbb2lcw8qgtLAuFeo7 OETtErQrHasgRLgls5Llc9x nUVPlfa2lZLO4mGHhoZbsf7 L7mWUuLEFuoNHyzaIoNUDjJ vW9ZJnyUV1gxw35IEHaLKN3 ev6foTDzoNnsvyIvnLTjKPf iX9MtPDQue370GQFpQ5JbSD Ffg3W8yrYyOeOzNTXrvMW0p kM2OODmMPa1tUEpgnY3grTi hSSyC4rtzA58YwZqzMAiU0U ilG65UnVcuREcN0WvlC80Gq SycGStW7BimK49OfYyjHPrF QWdwTQhOt5qbYFreFTli5Zw rXJsCEnzR37tu628FJSssmL nO6rpgLUasiymiOUuwbyjNX jawaF0ROIkBKGcHPupCTLwI GZzMjBcbGFuZzEwMzNcaGlj zJrbJJlpWiMeNIXaFNkbG5w cZjBcZnMyMCBBLiAgUmVjZW w9MTImuL8gBi1ulIBckG0oh JAhYJubAYH9fMXiNNYbDJJm BQWvWG42Y1VvdR0lg2ReHVT tq50bJX1cQXLiuYDrGFbcge FsdmUgbWFzcyIgaXMgYSAxL tJqB41fgD1epZVxX0OgZOU1 IDAuMyBjbSBpbiBkaWFtZXR mikJ9PI7tcMvihrF2pPWmkR ZfHLmxjFLwWGgaJLA6Km6ij JIcCDYiziJ2c3IkXHeyZEFs f4WdyQBgOOMaKueyXROvlCK xKUVqvzQyrPpwxF9cGbRhVh MyNFxwbGFpblxmMVxmczIwX PglopmdFXMsHOnjO8ynVzNq VWLsoQvdWYozz6TyCGEeMAR uYrReODYuMHMni4rvLL64IR xwbGFpblxmMFxmczIwXGxhb wrcBFRmQAtpK3slGeJlZKZo vZkxKPivq3TjXTPyQXXrWxO ccGFyfQ== MICROSCOPIC w8slfXNhYLFjuAD0MsLbRCA DESCRIPTION (test code fo2abx6ZkqZKwzDWzDLixfP = 3371) SwanXeum86pBX7oY63NH0sM RQjFgT3CTZvupU9Iqb5QHRc BNXxcAPmE051c6wfg5dfhdI rnBR7vOziVYGpuciaPaS8IT bvLMJtpddtVAc0EComREAdy PT4NCRucQGnH3FvLPEjFK7n maj9TPZ3OTutNHNmWtX7XYH drWYeRAMxiJftOQlsf724SL U9LfUyKDDoqdOzwRnmvQ7dQ cJbREZVHXUfk2PuSPWmUDIx cn0= SPECIAL STUDIES (test m5oxmKLkKUBkrLH9PtAaOMH code = 3376) ps3blp9QgxJUhzHIsEYwbgA NczzPrnj41eRF6kO33LM0nV CPdOzJ4UICwdsK7Ehs4DJWk SKWhyWRhV600WEGlIHBwgYm ddrg9zR06VIVrbO7ytKZnSN ebdzUxYNmbomArhdLzFkp8J HS3hBjxCHGdljgvQeI0YJjk VFBsxaetTWp9LTzcZQFrrNH 0SOXykXHlS0IgRUUrKF1lsf s9ASW4LIzhSCPpTvU1QDHsr JYuALTvkMneXIhjw743AJM8 GsEwCGGaieApsLfxcP2jFaE cZnMyMlxjZjEgVGhlIGludG IzlVKtaYA1zK3wFN4dYQLzz MStA7MhPZItkaCpwLBtBSJ5 sCVwtBUfQD1fAGxltPItt4w ew8SpL1mdwSmloXZ1HY4cRB VaVWJkUVwzo3UehT8pLvkzM WWoK1CuALQSF1EJZHNtBXEW Xo5RDaYYQkYsDwTOZn2aZBd NUywgQUZCXHBhclxwYXJkXG VpIRUCv932wz5oEWWrwKXno gSKwOBtaR7ePEyeMTyaLTsx kIDoEAqiy6arJCPuh5m8bCB aMJUhfpPsl7hjMQjhiaLaID DwiZUsePRsNMNes81iNIoye LmlgJvaKKBwc6UtjPtyc8Gg NbGvFNjfc2QvY31ooVZouYI jzGemRZRcluKkSXOce38bo3 mmQDIuFsD7aGXgmWW4fAZat OYzx6JysTfvZRMkf2yuNVQt tu4dkiaweJPup1QgpU0bbba cXBsaePCsrpSgNKMvu7j0cF CgKAYxKKTyLJohsMs1MSJoo 241jf9euiO4bLIdTVZ5JKpk YWJsZSBhcmUgZXZhbHVhdGV zQZCuwyTjRPOlkyJItW56qk 7oyBQ0g2WwJP1gx4EpoFP1Z WNobmljYWwgdGVzdGluZyB3 IQHztPWrYu5zsOWjQPW0UAS bwIqajbRZnQ6gNHRuOZd0CZ MqXqFvNmnpevZKROQiV4IaW MNgomRofpymLMH9oM3xo1a6 PHplDf6xSRLvfzglp6ixfyQ mlRVur9XmFRHsmmAee8PtFE EaliKlsARnHHUkoaGavr6ri eVlRQNvYAElL0QydminmIhy ucF0FPDeINNuqVOdrYtlXWO uOUk8HWkwndWut5NkVpPzvj EbvLBnvgPoIL0zONPnsNBhb mJjNMV1UTKgNEURJtPjRFIp x6PtPF7rQNAkgVudBCBalA6 mp2SpPYGeg31eRRIbOLIBCE EgaGFzIGRldGVybWluZWQgd LuvzELymFPdRRDzAQAsPQ3x PWUqkkMcwEDvd4ForHZocnD rd7ZieoHfVOSjHBR5CgKXrY CzcZKgjAUyamP4l8QkZHXsx lCjyPmdvAUrtLNmxXHhk9Ss fz9cABGtp5kjrOfyGM7usQX iZSByZWdhcmRlZCBhcyBpbn Ssp3GkV3T0oN8iMZbku4ZpB j5sTRBvq4YqoeVjXxCXsPmf BKuxLp5vPLMdjgdgrOHzZ3T ydGlmaWVkIHVuZGVyIHRoZS RYtJotiJXdeQDKULKdqgL9b 6B0BXuzzHJzztTaPH51SNOt LR6poOIacAAas6RnNZm3QDI rK4gHDQ28MYlxCLTwlQKcnJ dkkNFfWPFhOZPxwqWiqm6go SsagHKwk37mmWF0kYN1JFZy aS5bF8JjRGmxMy0tJSYyshc koBTkaAksWv1lnJAkbK== Gross assessment was [facility] performed at ([facility], code = 2777) Department of Pathology, [address] [place] [id number], Technical component [facility] was performed at ([facility], code = 2778) Department of Pathology, [address] [place] [id number], Professional component [facility] was performed at ([facility], code = 2779) Department of Pathology, [address] [place] [id number], [facility] [id number] 15:29:08 Test Item Value Reference Range Interpretation Comments Case Report (test code Surgical Pathology = 104) Report Case: [id number] Authorizing Provider: Logan Russo MD Collected: 06/18/2021 11:41 AM Ordering Location: [facility] Received: 06/19/2021 03:44 PM PERIOPERATIVE SERVICES Pathologist: Tom Paige MD Specimen: Mass, MITRAL VALVE MASS- for MICROBIOLOGY then pls send to Pathology DIAGNOSIS (test code = [id number] 3220) uZzEwMzNcZnRuYmpcdWMxIH tccnRmMVxlcGljOTYwMVxhb iHcSUWieDHmL2QnjjulHFni YQ2cGY8xrCqruUXiqABdJWV wVbOxw6wif152bPPwe5xyLM VEtaqahEr0pGwnQ90sv0O2G getN44ejGXdNZM4OYWuIGSv dKFmGHOzUPJ3OOHtySNuF5j nQXOsYI5bkqlxVTmjHWvmLR KnpGS7ECNgzWZfI3MuJABdP TxkPKYrgro4CuQdLv0lcMZk eTcyMFxwYXJkXHBsYWluXGZ aKcTrMV5uBVJDFbTpPO5KFM JBTCBWQUxWRSwgREVCUklER O5FSoYyGC5YZQOFIFMDWngw cGFyIEZJQlJJTiwgQUNVVEU tNQ3RZGQYKSXTU9YATIVXJ7 USI9IXRCMZQgEeN9YUX9pBM NJWGEjPMz8axEAuMPKJHLOD CAadJ0YRGR9TDVHSIhWWOuV EN5ZRU4YDBJ5EP6SFYNRXBm LFEL2GBT9ICEAWEJCSXjXCV WCFPjSKF7sHA4iaIGydSQQh O71ULuABFRVFD20dP2yIZOR GZIHTU3YBA0uYS1zOOLjcV0 SKREmXOyXQNhBKXHOKCC6YS uQEQL9xNRXuss70KEV0PhCt k8M9DJF7IPLlJPMyh5crDOS mbGFuZzEwMzNcZnRuYmpcdW UbZPWtYdZry6abs040bCOte 1tnUWViLcU7qWRlGUIizZPc Q247NUQvQPgof7mqw3RtAWS zmHPtq0S8EDHPvueknXz1cK kkM78cx5L0QldyN5yqSIGfN VAmQ3GfWS6eIFYvNfs0SEJ8 QSA3DYNqATIqT5LxYC9tWVW xkMAiRYj7t7jfbFpwUOKyCW B0f8juXKvctqDjAS5fet7cj Uy8p4cxqgWbAFRbMSFusWHD YVNoB0BixTojOf9ekQh0yHk tKuuqLCJ4Nsy3LV9jei03mf a3cHrpICYfyhpuZzN7LYijR IJoucqrTZg2EDchCSFrzNJ2 BMLrmHCjZ7WaBTFeLE5kkiz 5EYU1DKzbILWlDmY2PXGygD QhZFAfzBenQAvuj925VKO4H tVfKT8nS9Azh5S4gK5caLKc ZTIjtCIdOtChYZQkto3ebUU jZUiqi7TrFGN0cgI9jXIwiB CyORXcMpD9NJoeTN2bcz04Z SJqRTM7eu6anBTuiMboplSk sZEnZMqxI9PbDOXsq654AUM rL8HkAFDul3L5eoQqUfMsCQ EzjVV0rmN1RHIpZC4wmbnfu 6kcOYpsQZelFUCzuuV3ocJ3 ZTEjoCBuK1GklH3rUTWlAG3 fyztnx7tjYYX0MZkoFVWqSE B6YrPmSZLkl4Ovrqt9LuKit 2RlxECjTWtbW13nx723ZERf kgKeF5cqvYGmlarkkZWotdy uBKhqllZ8GRWjSAagucfhTM DfQXmxE5dwKdDwVCPvhLddB Iftl8KmUZQjDQMhYwIdjMDp VCKzMbq3UQQyoFXcDHTwXuR pJ0uituehQhFPUNPza1xfC6 siiRMBvIFeA5VdNOjuebBuU VtkYYgbTjGdTLMwXI26WWJ8 NPUgxv99 CPT Code(s) (test code h9lybMExOLQuqIZ4CkZgRIO = 3351) qx1jys5ZfiAFwdRSxJQguuL QsiyPmmd59aGD9qA97DH8bQ PSzRtV6EDQipcY0Rfz0SMXr SWPquZQuV127b6vub1icmmR beHX9fBbpPKUaazndScN7VU epXHPrufubNNd6SBjkZEMhf YT6NUBmcXSaQ9EiVCMcRI4x tnx5TIL2APobTWZyHyW7YAW ixPBeBDWwmVfmGUzoi669WA S5XmXyBRLmnhWcnOrggY2vJ jXqXJN1ASEjOAbpTEwpPPUK B2pqBNT4 CLINICAL HISTORY (test v6lfuUPeHLVqlWV3VaFeZVG code = 3356) iq1iwy6LslBIcwEQxXOlpzZ OlypKifv68yGT0iC61MD1xT GGpHeL5MMXvzsT7Obr0VZEm PKEqmPVnM454g7tym0mnxwL fiFQ4gDucHGQaodnaLvE2GB vvGADhftvdTXj4UJvpZUIsd FQ5ERRapUBqV1VcOBUoTO4v fnp1SLO9QHfyTBZjZzX5PBY zfLMoDYEkfGpsRLurr805OC D0IzGsVLPhiaJtzCskaT0hU wPiKFZPymKzJ4VoULy2aQUt cGFyfQ== SPECIMEN SOURCE (test o9nhiVYuRQAeaPW0GuTsSYW code = 3377) du1cui9CgjCSimLKmDPpleF WjxdYcir28hVO9zB94TN4nF SUsExL1RUJsryM1Buj6VURs QYIyyQFqK656u9jij2nstkH laER9qRlyTEQjufzpQuC4IY gxQETrscpuKDn3JDroGYYfg YA9SQNlpUNwE3HgTISlMZ6g sgq2ZCB5EUbgCFBlCgD2MXG jyJGcXDEihEohSHcjk405LN V7WwJuOQAybcMxgCdqdJ5iJ nMyMCBNaXRyYWwgdmFsdmVc cGFyfQ== GROSS DESCRIPTION p9foiIDiVNMzkHExPlZuYNO (test code = 3366) bXNZkj0duTRKbrAJpFyYbWp NcZnRuYmpcdWMxXGRlZmYwe 0uts993dWLec8ibHLPcHfI3 fLCzYDQznNIoZ854QLJmFPx hd1wag2RaWHFlaPKga7F9QC YGohytfHc7gKtxH35zh0X1A cpdO1asFAQoTKYyW2GmYI1h PKIzQzt0EYI1ZDN6OOSmIZA dL0RjDI0hEQQjwVApKFl5x7 vblFmbTBVuXSK6f5vfKZtkm gIvGG8sti8boUf1b8kfsiRo QAFyXOFgrWBCPWSaE9LpyUk tJy0yrYz9iKfhZrbhXOG5Po f1IY5ixu86utv4vLcvIOQba iixMeN1TEyhXZBtdhdoOOy0 MFxtYXJnbDcyMFxtYXJncjc yMFxtYXJndDcyMFxtYXJnYj naKByfIACvBQL4ENzjc802P QY4TDajj9pud3nwuFZjMaw9 ZHWtUwRzNxglBCxuj3Qdr6j mHDWxrs8jJEB6wJQcpSimt8 P5rYFuEIHmnGVzroVqHYPbZ zB0ARfxYM0ojp84ILSlIWC6 xi8lpPUvlJttgpDmwMEfHKi eC3MgWVKhe080ZOYmZ9KoYI Sem8Y9diMhNsQpHJLibPF0e zQ4OSMpIUy1kPWaytM1wfMn sPVvQ9qjfE00BuSdxASsW0O pnI65LdHbrTUuH2IkrM30Qt YssDAlJ0YogQ16BnUitQSrW OZudXQeBq9yfBChyDDys6Kd cPDmEQbzQ72bh221NWBrpyB wM8fydSBacsminCZvqviuWG glhhC3HLErZFUoMAkgCQFrB GZzMjBcbGFuZzEwMzNcaGlj cTuyGUiuKrYzSADaYDdfD4a cZjBcZnMyMCBBLiAgUmVjZW l9OHXarM9aEc1gbSCykD2qu HVeFArtVZW2zSPiNDSqKBMs MNNsGU89Q6HwdY6rd1BoEJL bz49aMY3gMZFvkMRoQJdast FsdmUgbWFzcyIgaXMgYSAxL dTcJ48okH6scISoL8SlSXB6 IDAuMyBjbSBpbiBkaWFtZXR zwpG1BZ4jvHulznK3tERtcP DlRPynwURxEMbmXGR6Ye8jd WRrFVWofeB9y8YfJSjgFQUw u9JfvTGvXWIeHpduJMGuoSE kAVChnuYmsMjhuJ0jNuKgCw MyNFxwbGFpblxmMVxmczIwX JmxspwjDBQeQImoH7tsQzFz RMHnpFglXUsfd7WgTPDsZGM sQmGxFHRiFHTqc2itPT31UY xwbGFpblxmMFxmczIwXGxhb gpnCWGpUCqpN7qqFxZnSEVv iLnoOVkpm2BpBWHbTZZvKgT ccGFyfQ== MICROSCOPIC k1hhhRJdNUDdgKG6QnWuLUY DESCRIPTION (test code ag1cnr6WnxRRafTIlRDmgwS = 3371) VrrhFhat64vSI6xO57ZL4oT JAxWvS8TYHsyoD1Thk7PGSz IGPnzYIzX152l9dsv4abriU fdGY4xQxsBDRrgllrArY9XY apHWIfxhciEXi4XSznZMIkm SA8JKKapLSzC5RoHURzAO6l xxl0GYL7OFvvMPMzUwQ3UYY cfUKlKPVipEmhNDkvg887KJ R0DzFsWJOcbfPvhGonyG6iM zWwKWZFOUWbr2RbSFSpGPVb cn0= SPECIAL STUDIES (test t7yloOKpVDJslIN2OcDgKRF code = 3376) fy3mxc3XxuGGerMMrHZxirS SmarBlja54jSD3bJ00IX9jB WQxFrX2WCDgxmH0Ibh1GKEn MWEpwLFwN539LPUzAKGvrGm oeqz4zQ44QRCkfE8wuKFaXS abexZpLSjlhmDwjdFoLxr2H NV4dVzqXGJntorbBiQ6YCny RBOarrweKVn2VBwdOGOvhZR 0OUIjmAEsM2EbOFXiDS4vhh d5RYV5YUlsMYOxUqO1RZBwt YVpMXMpbCtnQNkef706NLJ7 OcTmTTOkkrGsiHfgzH5qHkQ cZnMyMlxjZjEgVGhlIGludG OxnBGfsJR6eE0gZE1xYFQyo VXrO1AnKBRxtoXfnWIrNBO1 hMUifYSaEN3wDAamfBZkc2y id5RkB8hvvCbdyCE4VJ1aAS UoLULfTVbpm1EbnA1cGtrsA GOyE0QjCXRLA7UIWQGcDLBR Ik6UDcJJPrRyEbBOWu4eKZs NUywgQUZCXHBhclxwYXJkXG IaTAMTm701pq6oFGZkrFKtz gWTgTOcqR5fBIdqYMcuNSae eDMcGLmxl7suVSUpd7c1yLC tMSAtfcGbe1rbSSecttRqXC BjyYNumGYtGQFol72jPRode SimaLxuXMXgy7GkjRjdx9Mp BkBlDLseb2JeD45njUUpjWY prVwhHCImwyTcERFvf68wc9 pqCQLzNrE7oDUpsYX0lDFoa WWct1DycRgbNZHjc7bxCQMp pu6vqqvccMWve9FpeP1tqdq eHJuxxQEbecXbNJQiq8x9bK NiPTSlUZUaELckwYm4MJNsm 446dx9jltQ7iONiFSQ3ODhk YWJsZSBhcmUgZXZhbHVhdGV lXCXzuaXwQHVtvvFBzZ95ak 7fzWH4g9AdAZ7re5BlvZD4R WNobmljYWwgdGVzdGluZyB3 MJRybHIrWp3zaXSxLDP4ZNQ prUvzjgWLeD1kNTXsGRn8UN PmZoIhJobaclAZEMWrU4YqA KGwrkJzsogsTLD9nZ1sa3v2 YSikJl7wRPXjfenuz5aciqD fpKQjb0IvORTapeXaa6SlIP SyfoRayBWnFVRkcgIphc7xk yQfMLDmTJAcO8MaereyrCzh cgV8YOMsYYXljAMrnMjtBNH sPYg4TKfmcmEtv6SlQrIkbd LtwFRohyBhKF1hKGVbsQPvu vIyLMI9PFYyLSSGQeOaSXBg g5VcMT1lAVNrqGveDCNvzT7 md6HjCNAaq38bQMTxKYGACW EgaGFzIGRldGVybWluZWQgd UxivNMrrCAhECNwYEMdXN4b RCZdcpHwrBKef3WgrQLtfrA sg3OtobLqLDRcNNO3LgNMnS GlzQXwqIOxvoQ1x0AmWWWwb cTqzFhkxUAlhDGmxHUrx6Ti km0oZBFvc7yvkFpbHD9gfIL iZSByZWdhcmRlZCBhcyBpbn Nkn8KvO8G6rK0hZRgcr1HiN g9pJXIoo2CvioHuCmCUbBwk SQlqCs9sKMXlrrmciQDyM9L ydGlmaWVkIHVuZGVyIHRoZS QFfAtjpQEsuXECMLXaleE2s 0W1UMjqaURmooDkCS50FTRt NF0jdGFltOGms7YlEAa9UOX fJ2xDXB85ZJluKTUemQLucW xmoCGiGUYdYRRnchWihk3vk NrmzPPso01uxCB8kWN9YSQr gU8nK4TbYUjcFw3jWEUifqi fsQMkrNtcPj8dhUEusP== Gross assessment was [facility] performed at ([facility], code = 2777) Department of Pathology, [address] [place] [id number], Technical component [facility] was performed at ([facility], code = 2778) Department of Pathology, [address] [place] [id number], Professional component [facility] was performed at ([facility], code = 2779) Department of Pathology, [address] [place] [id number], [facility] [id number] 15:29:08 Test Item Value Reference Range Interpretation Comments Case Report (test code Surgical Pathology = 104) Report Case: [id number] Authorizing Provider: Logan Russo MD Collected: 06/18/2021 11:41 AM Ordering Location: [facility] Received: 06/19/2021 03:44 PM PERIOPERATIVE SERVICES Pathologist: Tom Paige MD Specimen: Mass, MITRAL VALVE MASS- for MICROBIOLOGY then pls send to Pathology DIAGNOSIS (test code = g8xugBIsELXll0joVJCkqNC 3220) uZzEwMzNcZnRuYmpcdWMxIH tccnRmMVxlcGljOTYwMVxhb oJkOUTaqVHkZ1HjzwgtGYkl FE4yCM7qgIqbvLRhcZWySNO nMkYqs0jlq196vCVqs4niTH NGoabteUu0pYmlP13ua0O0B efwJ73seFPmFTG4NOAaUGHf sNAdXPQrKFH3VWRhlIHzS4i dLIVlQT0kdblcVRtnYDnmFY KxyNI8CJNfhYBqX4ZySOKuG OgkRDVxthj5QqOzMl1lgMIf eTcyMFxwYXJkXHBsYWluXGZ nYhZmTA5jKSAAXpVqXE8PRR JBTCBWQUxWRSwgREVCUklER M8IXoFrSK6IPMHNSTMGHvic cGFyIEZJQlJJTiwgQUNVVEU rAY0ZTSIALDRMU4LWNIYLX4 UDV0AWXEOEPdWgS9QAD0bWV RMUBOnZMf7laUHgANMLXZFJ AQjfR2QIUQ8HBGQOQtJRWdY FK6ZIS2CDVW9RK4DCIBVAQi YKVQ2CLE0XPYTGJWKNFnDLI FPANgQHB9cUF7goTCajQMGz G32VRoUNFLATX12sH7rFGNG JXOQNU2SYN9tLB6gHYYpvM8 KEMItNHsAUErRFYFOVIS2PV iIGEU9tCRGdof12XOT5JoYa r2G5JLV7EUBnTJGwg0bzPLX mbGFuZzEwMzNcZnRuYmpcdW UrPUEiWlApa6stf384sLXpx 1hjMIVxSdN7mZWkLCUghJDr K852MMGdVPcyn2wnr2VjUQJ jkQDic6O5LNJRzkhkqOu6cD xhB66ak8B0RcsoH6ytITNbC REsY6RyPR3yETFmJmm2WLF6 TWP0BMVvBPYdW6PwLI3jXKP jlBTdKHs8b2ufqUcqQTVlNN Z9k0ryDAfgdlXsRA7tep3st Ao1l6ltnxYrAMRcPLSybPOQ JOEoZ1ZsfOebLk4cyXx4mEz xZbshFXO0Hti8YE3uut56ua w1uCjgBATgsdtlSvY7SIpmM BOsensoRQz1KDkwJMHlyYN1 WXWleDRdC1EqECVxFN7negl 9ZFL8UCqfTJYxAwQ7LYHijT BzMKCuiEjhTVrio929TRU1V cMtGY1tX6Fid1H4cR2gnKXq QOVqeGWyTuTbMJOvny0foNH jWJihs3GjHVH7qoQ4nJChdI FsVBFsLsJ0LFodQE3gak68G LTkFOZ8bp7rtKJvfQjryhCz dHFrOUgiR4JeNGHpm073HWE mP6BbKSAss6X8caTfFuUfGA DotSR1prA2QDKiLC9cuntjs 3jpMApvDJygFEBuwvZ0jxY4 JFLvtFLiK4SshT8uVTJqKF3 kchayt8jtJXH0NYhkJNTsBY Z3DqMlYEKwg5Dsptg5LhHxd 4XsaAJzXLmkF63uw813LBNk lgRcU7gmmUFuftftzRPpahf ySFtmcmK5QSAnOZlgdwwtXL BhZEjsE6gsGnJiNHFcbHtgQ Bowb0AtSLFdZQFkZtDbbDXk DZUsOrw7CQIjqOWmQGVfBlF gR6aznoidKwUQKGMnm5jsT0 omyCBWfWAjS4JsKNnfhhDkD IfpAEezMtMdVQYdVP81LCL8 EPErex87 CPT Code(s) (test code c2vtoHDlXNHacVN2IaEzVQJ = 3357) gw3kdz8DyqEQrpXIzGQpeqD RgkzBrni70cXX8zX84XX9hF FKwQlI1FWWtcxJ3Qzq4MHXh WRHlsYYzS961q7gvk8vvxvU eqBG6xFpoIYSbbegkBsN5PD luYZXucrijBCt6EScxMLOvg CM1GXEosSHcI9MeMKTsHR8u hgf0FQO3GAofQKQeHqG7YCJ bkUEzAVWlkYbuBPbsz013UM T2QsDrZFNdueDuhZcroP6yG eCmLOK2DZYgCSwoANumKSLE D9faFRF5 CLINICAL HISTORY (test z1amgDEeSFZbgSJ2XbYpBJJ code = 3356) xl1gva4VqbIPgdLKhUQlvqF XmgqFjfj46oSI5uJ37SX6wB OTnFuJ4NFJwqvI9Gce4CNDz RCGdnEBcB040k5xaq8cbhfK alDD0qFhsKJDezbchBuY7YR dnZKAmmoxmUZi6CChdPMRlp MB7BUBymWMpH2HnXUVjUU4y eba7LSF7SGguMOWmBqU7TEP okJUuNJMfrGlzKBhjf869BG C5MrQwMCArhsSllWavlW7lO gCmFJJEcaEaP4AoJGh7hSMj cGFyfQ== SPECIMEN SOURCE (test l5dpaEItIKMqsRG7KqWiDZV code = 3377) qv4tfn5NehBAvmSRqIEysoG ZkhbSqdb50rSK2aT55YP1iD EBbCsR5JNMyhpY6Etf2VYVe UCNucRZcA908i2tlb0morzU nhFS2qHzdZRAqkupzSpH7JM xaIESvzzlnROm3PSumCSTht OW1XTKywFBoO1EoUGCcOZ0s npx8WQM5YTgyMAOlXsS9CVC tfVAtKERyhRljKBpbr421MI X2SpChBVQxidPqcXluyS8hG nMyMCBNaXRyYWwgdmFsdmVc cGFyfQ== GROSS DESCRIPTION o3pgyOHxJJYytSCrCvZyLRE (test code = 3366) jLOSwe3xuCEOftZUmThGcLa NcZnRuYmpcdWMxXGRlZmYwe 4rla182kCYhr9vxBRSqQjT6 nCSpICYtgEBjZ971AUOnIUb yb6awb7OeJOHcsGSoh6L7DN RWivnixOh8gVnsB40kt0K8K josC5ehOXWwZCAcD3NdCI0q FFWnLni4QXK5ADR7UMTkLOP gF6SnZZ8mJCBszQDiKBm5f0 dgqHspIWHuWEA0k5oiTAmjb hWbKI9jvt2nqOl9v2oyktNs HXHsALVmgJKWMRNjU1OrlPh cLi6ijVs4tHtbCkffMDI0Ki x3VD2xpu66ezu1mItaVCDim uvyEjM6RUnsHGKjsmecLXs2 MFxtYXJnbDcyMFxtYXJncjc yMFxtYXJndDcyMFxtYXJnYj svHUyxIVReYBJ0RSmsr623X DH9MFrrk7xbz7twbBDpYhz5 OLIdMaYvJzczCCxqz2Uzz3t lRIBjqb1cPXB0vAXxmPxir9 O4bOStRYPawJKbipPxSYRvY yN9RKfuCI7vtk47BBVkKDE1 uk5deFNlwLejxhZhzAOfVTj nM7PwVUToo185XZWuE0KeHL Wpe6L7phFvItZcFTHpvQC7c mW0HFLcEKh6nQAqwiO7anTq pEVqK0xnsK91ZxSffHYgD2I phK03WdQnaGLoO3VmrR67Fl ExyPChG2YfnG68TlJfaFAmQ CPleBCuQd5ycKYegKMpu4Yz kYUhHCsmB63mg967EFBfyjZ zR9uipEDxfxvyoAOrzxxnDV xeizL0YCAjHCOaTQcsVANtZ GZzMjBcbGFuZzEwMzNcaGlj bSqnZHkfBtQyOCTnYCuyF9l cZjBcZnMyMCBBLiAgUmVjZW f9JNMhrL5eAi1uwNIioP1qv GBnBQueGYW4tSBjEJPlLTKq QJRsCO87R7WcvP5lm6PlHVW ui16xND8xJAUncFAxWEkrbc FsdmUgbWFzcyIgaXMgYSAxL hEtJ48glL6yhJLeL8AdNLY0 IDAuMyBjbSBpbiBkaWFtZXR zmxT0PJ1rpIuejuU9iFEftW ZrHFtsuLQcMHnzQIF4Db4yh EXzOUOeabQ9a2IfWEguWMIw v8AppTNwYRXeIgoyOZOvcDQ kCHLriwUdjKrmzH5kDbYhGi MyNFxwbGFpblxmMVxmczIwX BdodaknGHPiZHieU3xoFfDc EVLouJjsQYaks7UsJWCdAUK cHjEuOVXsTPLwb8wgSQ98WR xwbGFpblxmMFxmczIwXGxhb nncHEVhNMotO4gwWgHaQGJg bSqfISyqc5IhOUFnNWXeNxA ccGFyfQ== MICROSCOPIC y7bboTGeFCTxoNH8GxXgBMQ DESCRIPTION (test code yq5nbm6SumUJlhEGaCJfleH = 3371) VnbdJuah15jGI5pX88MA5vG TGtGcQ9CMLtxoP2Qqu0IBFc QISvdPJxA140d9snr5dfmdO fpNO7kIgoLGBcyuuwKxR1EE wpTRYokhqlSHv6KYunSFTiq EI0RJDdgBTrS3GnXMWwSE9f hyw6RQY1HAqsYVPzAbH7WKZ zsGZeZAYscNclDXdgr178YW B8RvEkVNCiptEbwCklhD2hP rNbIRPFSBKxm2KmAWSjPYVc cn0= SPECIAL STUDIES (test o9umtSJzOCEodFW6BvJoJWQ code = 3376) uq9pei1SxgPCueYGcFKysnD JanwVodi69bFX5nR20JF4fK YZgYzI1WIGamrU1Dyw0TLLf BALieJDmR651XLKvKXKgiMy aata3vT56XTJqgQ7cyKEmCL rtkpMjCMvmelKvdaOcWhi4Q ZK8aHhqBUSiuqeqNdE5PZhe HRLyrvzeDXu9WRxtUTIocER 8AXTxxSAnB7KhSZJiGB8wxj j9GBY2RElrRYKvQyT2YXYex KEnGMCiyXxoMWfcv099SHB9 RdDfTQUjuzBkwHbptB6nSyB cZnMyMlxjZjEgVGhlIGludG YcvHSevAC6cF6dEX4oPHUue YFjG3KxFCEudkVjiHOjBQU5 yUYfkNRpNK4eZVwhoZGpj0e rq2YjO4ognIhqdJO3ZN6hDU AhFMSaGXtjl4AazR7eCemmQ OIgA3GhHHOKM7IBFDWlVFXB Sr7RSpMUOhZtPuIVJb6jHXx NUywgQUZCXHBhclxwYXJkXG BzRATCc753wb1rSHRilXZfc bJDpNJgcA0sEMamHTdyXJvg bUBgWQqxn7gtRKEss5i7dNC sTPQzkyGdn2zzDFrnuwEjXX WkaEHyzKLsZPGwr30wEJtys FezwQifBOXiq8DeqKrnm6Cj AaFgIGiyq3BgQ42wiJKixTD wbYruQZZisxMcURNnl54jj5 uxHZTeKoB9gTEeyHI1dWUnf BOxj2AqoLahIRJen0rvKNIo jy7lxejfgLQzc3ChcX2nglp sAKqheOHkwtJdFYBfc5z7kY SqZJDoNZNaSGdsjMj8KSWnv 333cm9hpuS6rQTiFAA0MGls YWJsZSBhcmUgZXZhbHVhdGV qKRRdkqUdLVIoeuEAuR44of 6olEY3y6SuQZ5sv7OngBJ8N WNobmljYWwgdGVzdGluZyB3 KJPkjRQdTr0sbUBlNFA3DNW fjLmzceEMrU7tLYIfIGb3FC AbKgAfIbvmodBDAQVvQ5JvX DLexuHlhejoNJT7wW4uz7g0 VPlyCb4lAIOfxfohs5bcabX omEKxr4ZrXCFwomZjn8FoWA NvgtHhwQTfQMGzpuYpxs9mg aGaNCXgQXTaX3WstapcjGjr ivF4PGKaYLNynVHisNujTBI zEGe8WGhpnqWho6MyEoLeck NjbWTdumHoFA5pCGDwsMFsm lLvKJV2OTNcMCRECkJlOUCd h6NgTL1xQPTshTxtCDJqhV3 uy4XmPHCas75fNWQjORKSYF EgaGFzIGRldGVybWluZWQgd EqcrHJmhTKxRGTbGUZsQT3s KWTrecBgiCIho8DjgEInmrN pq5LxpuFsUHDvYYY2PmHXrZ OmwDLptAFkqvX1f6DxGFMxu sVvsDrkbNGuvRMtjYQft4Cx td1cOBUgn0gxpMlvME3slIR iZSByZWdhcmRlZCBhcyBpbn Xah2PyA3K4kJ5hBMtal0QcK c6dLQYpa7IqguWcRgAHhEsv LIeiKv7oUNSdmogviUDxM8C ydGlmaWVkIHVuZGVyIHRoZS TBoAlkmZTdpHJIAVSfllY8d 5L3LDxdlDSaidQhVM39SILz WI4veRRkoNGpy2YpWFj8JOG dJ7oFNK96QLzcMGMigKVkhH wscDIaAICqTSNpbmXnpv5hi OcznKXjh64yoFF4eYD8TRPo zV7qX2XsADqyKr4kNDPljdk amUMqbKrfRl0pxDCxhO== Gross assessment was [facility] performed at ([facility], code = 2777) Department of Pathology, [address] [place], [place] [id number], Technical component [facility] was performed at ([facility], code = 2778) Department of Pathology, [address] [place] [id number], Professional component [facility] was performed at ([facility], code = 2779) Department of Pathology, [address] [place] [id number], [facility] [id number] 15:29:08 Test Item Value Reference Range Interpretation Comments Case Report (test code Surgical Pathology = 104) Report Case: [id number] Authorizing Provider: Logan Russo MD Collected: 06/18/2021 11:41 AM Ordering Location: [facility] Received: 06/19/2021 03:44 PM PERIOPERATIVE SERVICES Pathologist: Tmo Paige MD Specimen: Mass, MITRAL VALVE MASS- for MICROBIOLOGY then pls send to Pathology DIAGNOSIS (test code = [id number] 3220) uZzEwMzNcZnRuYmpcdWMxIH tccnRmMVxlcGljOTYwMVxhb vQnJWZvoRJwT6WecqucLAvp QB1jOM1htScnjGMkwOHzZPQ fDaYtk8mpx473eCDun1wwML VIwxqzkCl6kJgwH10ak9Q6X zkoE53lgKMpTEH7LILbJOCq kVOmXYYfFKC4UDVevIZeC0p bAGUpRS6afmjfCGxgEBynQI MudIO5JOOsfRUkF4KcEMNvF IjfKDQgaon7EjHfRp7jbJBq eTcyMFxwYXJkXHBsYWluXGZ vAvOzTN6jVVMYEtSeLQ7IGZ JBTCBWQUxWRSwgREVCUklER A1LRmPrOL7BBCVFDOOCPfvr cGFyIEZJQlJJTiwgQUNVVEU oVG5DVOSARIHPW0IQSYRKL2 WYL5XXEGCVExJzC7DZL4oOE ARZYHzURu1ywEQeTTNFWAMW UQmpO3RKGA4XNIWAZsMHArK VI0MXV6PYCE3AA8TNOVIFUa XLCI1GDJ9OAFGTOAYKIsLCO YTRDzKYL5vNN7whNRluASEc U30OLeTBPZXPI45hM4fXDDE VNYUUU7AQT3kXP0kUXArgO8 PEWLnCFjQDXzVUGYXSWM2VK aKWUA7tZOMlcw12YMP1AaSn r9T2UBG7DFWgFULye4jkUBG mbGFuZzEwMzNcZnRuYmpcdW EnHPAiIlWdz3nxq913iYSzc 8ybBSFiVgO6cVAhILRotUXy L568FSObHNzxv7nms9NaSNQ jcEDyw2O7USADcfiehEx1rK snU30gz6D5XecoH8yzOELtL HJsB1HvWY4dFWMiWiv2NXU1 AVR6NDOaGEVcV9GwDY9dLBV giEFaBEx8q7ccjTllBUHkVG O6u4xsYWihnySvOB0kzk3om Aw6x0ylboEmLLLrZRMgkRJC KVByH0JvhFkaBr6rfHo0rEl cGvaaVGH7Tab3OD6dvi26qc h8yReyTSXjqkweCyP6EYhgB IQkqwvzGGm3MBlxTTVkiOU2 CTCrfVRuY4UnRDGjUH1xags 4MOL6SXnvAKXhUeF1UKWkuY YgPWFqbEokEGmxn384YRV7N iKwJB2zJ9Opf2U1sL4ciCQl ZDUbeZXeVcMhCLNdku8ipTO oDKmwb9RwSOR3diC7qJFkjH CiMDQzEwA3WRjrID4lqb73F CTuJUA3zt1glJHckCfyqjHj rWNxOWhzD4EnDDVng104SZQ oS8FwSTPpz9V1dbJnTeOgNY AlcSM3kqE5NWOeJJ4msjahi 5trIGfuJDlqFMVpyrA3qeX4 JRLrrWLcF5SlwK8hFLBiUC6 cbzicb4jxZBR6LNvwRNWnKM K8XlNmSBGbl7Bywkh6NgWla 7IjsKYnMAdxF94fq972POUg ioWkB8ndxXYdkffrgFZpqbs sBBviqlP1RLKnIBpvrpwlCL PlSEbbN0hcFjYvLNZynPzqN Bjwx8RaZFGdDRXdMnYleNZh CCPmJon9LBUurVItEBGoBdR wY7qnnfygUyOMVWVzx0elI5 zztGKRuFRdI4HqMPqydkCyG MvtJZcnNfGeLMHoET52FMA1 UXEoke01 CPT Code(s) (test code q4rzgTOaOWTzcGY8NuRfDEX = 3357) xq4auy9XrrGJttKNaZUuxaU HghcFeso44lPZ2eA74OU3vH KJlQcO9MGVxoaD5Sba9TROj JKYlmDHmL569l2ugj8wxxfT bgGY5cKloTNWkftueCuN8WF wjHNLpvcycHHq6QDhsXEFfr PZ9JJWdsMOjH6HwRTDoPF0x gcd7CQK0PTatXEMvOmQ8NQD htJIrFGZayXycADqvm002TG V3DsZqMIUnghIurQqmtR1xW rNcBFO0FZMmIEctQJxcQZEN U2yrYFF6 CLINICAL HISTORY (test r0tmhKKxARUebCS8VyWaCVS code = 3356) vy4nod1PpxSDjoTQvAMhgzY ItzsYaoa65sDH6zU81PL6yV DGuIrU0EOFnzhR6Omf6ILOl UQFmwCZrD452w0sba2wecrR ggXP4aUbrLMFbhwfgBdA8VM klOPLjhrlkBCw5DDkeHBVze WI2FADdtFYpO4LoJUPgRW7a iyn8PXI1MDmhDGUoBxP7SQG ufXVpVGNwbKvcQGkoo594LP G0BhFqVNXtufMalSharN7jW cKwIKYDcyElF3JkLLv9bVRy cGFyfQ== SPECIMEN SOURCE (test t5mjcSYpZXNeqIH9GgGwGXF code = 3377) fe5owb9JyqXPmkVTpOSussX NsbfAhjw26wUN3pC59WJ4cN ULoYzP6YEIsxaF7Ary4GGIu ORMeiEWqC496d8zjs8kfbsA azCI5xRbmNORyhdswUvG5LE sfXOAxzkxjGDm9UQzxWGIio RJ7HWWrpZRwO2BuUQEmDH5f srj5WPT8MGfzTSUuRrB3LXT ctZWgVMYxqBalJMlva250FZ B1WxDqFNGlrbGpxYkuoZ2kL nMyMCBNaXRyYWwgdmFsdmVc cGFyfQ== GROSS DESCRIPTION p9qudVMhZGUqlGGjJvAuQOS (test code = 3366) mLEKtb1xnBHVcaEZlEfCwCx NcZnRuYmpcdWMxXGRlZmYwe 8mmn102xELep1rgSDQpMiR3 gRQyHOHdnYSoD897CLXbBQs ga9ebc4WdDJMgiQYpp2U2WI RDifnnaTd6uSsvP20si7X6T efrS5vsAIFvUIThL5TrIN5j DITxWlp2DWQ7NRU6XFTpGUG qE6NbNR7bEEPaxFDjGQq9l5 ulkXtuUCPbCBU8a5rfTVkjb vLtCC3jto5znYo5q9pqilVq YAAmYNKdhCXMNAItE3GlwMv oRu7ivOd2mSspKgofWFG5Af s7YN2vew94sew1hSrrJFDtx bguLbT2OPhtMQSzlldsYKh7 MFxtYXJnbDcyMFxtYXJncjc yMFxtYXJndDcyMFxtYXJnYj vyJGsoQJCfTGW1UPcoy138J NH9XFnkb8hdg1nbuWKqYtz2 PDAeDjOrFcxiSSgsn0Bdm3v oMKNlvg9wWAO0bGIujGpsr7 P7pIZzGDPydQNgqnVpXKAhS hV8WOeyXB4tbl72SGTuKSZ3 bs6smEEmkQnskdHneRQuXSy sL8DbAGUse111MHMjU7DcJS Jdd5I1yaWiDsTyESXdrXD1c pS9CWLeRNt7oNPgmlY2qkGw rULhK0xejT94PkQjvSMkW3B wdW95QqEwtISrR5DkgE59St CzgZTfJ8CxjR83CjTqxGHlB TNbpTXbOv5jlBFdqYBxd6Fd aUOvHBroV91gv127YLIkerD jB1xyeVKdrtbvtRLjzojxUP gezkQ1UCQfBSBpFQvfOCNxE GZzMjBcbGFuZzEwMzNcaGlj rZuvBTgoKxAsQZVkOTmpR4u cZjBcZnMyMCBBLiAgUmVjZW x0KKUczL7mXn3nqYTrmU6ap TJlERlfRZX1iKGgKDEhMTHu ZAOxZZ24I8CatH3kw3GaLTD cd26bZW3fTDPohTSiMFjsdb FsdmUgbWFzcyIgaXMgYSAxL vBqC19wzD6ulZTqO0KuKPA9 IDAuMyBjbSBpbiBkaWFtZXR vpzK5IB8cmFctnjJ5xUOnzT TzXRqwsEMqWMljVDG8Ih5pv LHsPSDqmgU4s7YgTYlqZSUh l6BvwNNoAFXdZijvZDAwqFU zLDTqaaIjaYgjjM2vZgSrEj MyNFxwbGFpblxmMVxmczIwX RtfuzqoQSJmKTejC1tfQlZk AJBxaSksWZkhb9NsCSHvIIS sPwLjPKDzHXTnw2vnEL86LR xwbGFpblxmMFxmczIwXGxhb ixcQORiIVxiH0jlRkNgRCOu wIqjJKrsr5TeDDMjKHClNjS ccGFyfQ== MICROSCOPIC l4orhNTwRKJvpKN3DhHiAYW DESCRIPTION (test code qk9idt0BqjZTuxQLvIJccxI = 3371) DsxbKfvg74qVP8wS57ZU7kK QPrCiE8FEFxabA8Cbz3XAQf JLOfsEFdC604v8bxz5puqrE blMB4pLfdWJYonlymClG7IO nmNEMxjoesVSq5KQrnIVAmn VP4PKLrpRFsO8ZlQYVtBE2y ljg8KJP1HSqxNEOsSyX7EWT kzEJbQGQsmBhzUUnzz707OY H5FvGrIBUdlaRzuLqizG4bB kObHKMPREBov1QdVTQxHJVh cn0= SPECIAL STUDIES (test y4rifCJmKMOueIL4IhAuBNO code = 3376) dx4edz2PeePQlbPNtRKlobR DtfuTpps40aIG8yP84BZ3nB IQuHkO6HNOsjzB5Mvw4BRTu BKXeeBLkB689AVHvTWBajUv akhp6vP40OFBvbK5rfZOtTP hyplQkJCbzupGmeeBvCti4G SU2tDygIZHdspdiMdM1GWly ADPpshsyJFy9PFjtTNLafGE 4KQPauUCoS1CiNFAmHN6mpp i5YMB5GBdnOLQoEwB1FYQgd KIvFVLcuJypFQxbb193KWH1 FhOgPKNawvBbyNfdvX2dJoY cZnMyMlxjZjEgVGhlIGludG JgsMTieND3kR0kDT4vIZTwr COkX2JjCHKbymImrSXyYOM3 yLAmgFWuVY0vFXgifXXyw0j zz1GiB8fkaAfuhVP1QE6dLY GqVFJjACkul1MggR0bDmmxO RIqQ0EkEHQBH6MRRQDpMYPJ Kq2WKzTTVgBkYmUNRj7kTOq NUywgQUZCXHBhclxwYXJkXG UcGNPHp128ap9pFXPylINuw bWSeRQiwO3nMZukHUpuCBvn jATbISrec3xjCETsp0s7vIB uHJJcbjVoo4wkECmadlVvCA JkaNMahQYnMWIay49pSEnsd ZqdaLfvZDVqq5VztEcta7Wo FcFrSDoml5CnA55ktMWjzKG usJhmBNNkkaIpATRga97xv3 bdDSBjGgF5jZGvgBV2gINms CHku4GsmHbePJBcg8whWKQp ba7ooaswbRQrf3FhfU3cqjt xJIaqgWCanpNlHWJce9h6hW MdMWKqJANkLExuzJi6FOTjr 163wq7spuP8xFCoMXV9EKqs YWJsZSBhcmUgZXZhbHVhdGV nITCkleMqMKJqxmBLbA96mh 4kiTU5z5HeHO2qd5RxnZU1N WNobmljYWwgdGVzdGluZyB3 DTAyyQXsPw9zcDTyYLF0XVL uaJvmomBFmG7aHSDlNSs8NN FuXpOaCccqzjIJQPOzQ8IvH RWstuHbheheTEA0uW0hm4q2 XAcxLe5fURPqrzzlp7tpwoP kfAFic0TcVYVlvlBdr9DbUX EdxnTscSPmWWAdcnJxfu5bt kEyJYGrYITcQ3CdmmaefRim fzP0UPBhVTLxnRUrxReeKRM zWDk7PFqsvqKzp8VqJqYcba HklHPaqrYqHN7wTFNydKFum lQhDLJ6GZKgQVRHKxCjOXZg g5PkRY0pDNBqmHsjTSXpwE4 nq0NlYIHqq35cHGLtAXRINQ EgaGFzIGRldGVybWluZWQgd MjthXFroIScSBAbZEAkIG8d HAMisxPnaEFhb2GagNAwikG yt3JzhrEqTGZqNEE5LhSAvA MbuYMmmYJoglH7o2HpMKNcn eNzxIhmpQYaiKKvwGQqh6Wc fo5gCZHdt7wtmDfdDU6sfWG iZSByZWdhcmRlZCBhcyBpbn Grx1HbK9R8kX2bVNpfm3OhU o4dOVOup5UnmsIlIxIKhKoz MXyyQz1eEDYuhynmlKOaF0R ydGlmaWVkIHVuZGVyIHRoZS LBzElzsJYiqSSXMYSbncD1x 8Q5XGcekIXunfMrAD09ZASe PD2arYNzkPIhn9RsMSb5POG cD0tYOT18PZryLOKoaBUidD lbuLJdGXFiYDGnjcSuwk3bp WusdOMbc09waQR9aJY6LDIa qM0kC1ItUKveLy8wEZJovkb byCYcrYcwHc9tzDTtnF== Gross assessment was [facility] performed at ([facility], code = 2777) Department of Pathology, [address] [place] [id number], Technical component [facility] was performed at ([facility], code = 2778) Department of Pathology, [address] [place] [id number], Professional component [facility] was performed at ([facility], code = 2779) Department of Pathology, [address] [place] [id number], [facility] [id number] 15:29:08 Test Item Value Reference Range Interpretation Comments Case Report (test code Surgical Pathology = 104) Report Case: [id number] Authorizing Provider: Logan Russo MD Collected: 06/18/2021 11:41 AM Ordering Location: [facility] Received: 06/19/2021 03:44 PM PERIOPERATIVE SERVICES Pathologist: Tom Paige MD Specimen: Mass, MITRAL VALVE MASS- for MICROBIOLOGY then pls send to Pathology DIAGNOSIS (test code = [id number] 3220) uZzEwMzNcZnRuYmpcdWMxIH tccnRmMVxlcGljOTYwMVxhb uXsYQSsiZIbO7OxzqatPPaz RJ3lIH9cqTpkhWPdnNCsFHI zMsWog8wiw790bQDpf2xjUW OLuynzdGp3zInbZ21ia8P2Y skoH25rvFCxTSD3BVTtUWSz mQBcKEMjMGI8SGEslONvB0o vSDUzOU4scccbAJzbMIsuPF BduNX5SIQqpWYaS5UqTYRlP PknKCSwwvw4DlCaRw3hzANp eTcyMFxwYXJkXHBsYWluXGZ iDrQwNR5oMLCBNsPgTA4KIS JBTCBWQUxWRSwgREVCUklER A4FFnDvEO8KDDGYXNYLGlsf cGFyIEZJQlJJTiwgQUNVVEU bMB6JPAWRINOWQ7REVKUBS8 ZZL8AFRTUIXpOtV5YAJ9iLT OJDGQrQJj6emVKeYPBYAEON DMjzE7JVGW4UWWYCJaEZXtM QJ8KYU2XBTP8VS8YBTGVTEx ZBAG0SAI8TFSRVNCGOGfSMO CIMGgEVD9hOZ1vsVRwnJZJv R29BMsVMUIMVZ40mZ9bPHEC SZDGGO7MBJ6zWR0kZBPszX5 TAOSjLQvVYMhCGTCIFOB8HQ fZVWO8bZSLeia49AKY5DiVm z1K9OGW5FRCoEAZse7ofOLN mbGFuZzEwMzNcZnRuYmpcdW TlXZCsCpMhn3cqc171xCJwl 8kiCFVkPhV7hUKoUZCjeSKx J743TFPlARhhv6ixh0GyYOH viACvm3U9VYSTogngfVz3wR zxY31nw2I9WkmdL4skCLWmQ PVdM2QjJR3aZJDaKol2MSE9 KXV8RAFmKQKdZ6AjOR8dDTX dmEReZCt1g4dfmDbxRNQqET U7g8ugWJocoxWdNX0oyx1oz Ol7l0kgwmFcTDWrDIYmwNYM UZNvK7CyuMhbOi3leWt0hEr hNidfZNZ7Frz3CC6cih91jy q6cMqnWLWlpdopJgK0AHjcI QZscizdDNn9PHwfJCLaoJN8 JOZhwKHiL9WgMGVbLD8fask 2RMB3IKqbBLWiFhB9HORtcP ClTIUpmCqmOSzfc112AZW9X zYuOA6yC3Zwz7T9zK7ppUFr ODAmaSWfGpCwCJAphq8peKG kOTtcp3CjZLR5eyA3qAWyxK LcLBMwUgO8ZJppFJ9cfk13L SWwTAO6ff7cjMQtbMonllRr lITsDEmpV4StIULwq285SZV wU2OtXMOgf3Z3thGqPiKqTM LstRL6pzH0ZWIyGI4oqqjxm 2fmCSeqMNqxOJYpfqO9zbS4 TEGmfXGwM0DpgZ0uDGXwQG2 jytfyp0ejWDY7FFhiHLEwYS P4NjEyBDNcc6Mwbfx2YgWvc 3PgmYFvPPtuN27mm547PBWm cmKeJ0sjyHQmmamcsKTzzbx wIFdhybE9YREfYVwgcmfdNX GrZXqfY0kbHnWiZIMntCazO Rzcb7EwXJFpDQFyWpTecHHu FEReCae3YDSosNXwIQYmUyN pO4puwoblTcQJIJOpf9ftO3 bgtHVPwJViE4KxQRitxgZfX IamUBekMbCjVUZsMB52MJF7 LEAolj80 CPT Code(s) (test code k7ldtLVoCJDewHN9RwYxVYR = 3357) zo7zkt5WkuGQtfZAtEXgamZ ZrvmTnzh97pEK8jR34EM0vT BLyNnV6HIOazkQ0Isg7KWFg PKEmqTZpP375y9lwp2xkbaQ tcUK1uXpwDADbitspWyF7HN naRCIbxyjjCSq4CMguXOWvd RI8OLIgcSNzC6SxEMYvQY8t xho0IZU5ERvvCZLbFlU7EEW wbGJvAEFnuJffXHsvb071ZZ S1FqZjFCYzsmInpPjmjX0iJ tWqVDB6DVApVWxnMIqtSRKO U3zqCOY1 CLINICAL HISTORY (test j3hvxPMvJYKeoHE1DwXrHOL code = 3356) kk5mps9BwlQDsjBBeDOnwaL WnrsNoim27xDE3qQ79SJ6iF XLlHzH7OKKpquE3Twd3CSSv BJJfpXDtT047e5owg1fnowA lnRK3bRskICBdqpmwJjH7KB vcHCJtqkvwRIg3GFsuLMGil NE5MDDzuHElL0YmPBMdGG3m pqg9OYZ5YQvzMPFjGgS9OUX egULxZOHpoFljJKycm229KV P8QdDyRJWsrlXleUluiG1cG tAnHVIUcmHwY1NxRAo4lMCv cGFyfQ== SPECIMEN SOURCE (test b2lpuCZfYEOroAZ8YqOtUYJ code = 3377) kp4ypi0RsdGCztDZeCJbpcS MgciGics06gYG9fE95HH9iK SZgWxC2OQVwgwE0Jbm3LJWp EXQcqJPiK610n4fps4bryjG euAA3cZuhYAOeztbjTtY9RJ jtMJSweimyNTy1TBhuAEPcg GX7CDLugSCfA1NtSHQpIG3x xmk5ICT7GYwdDCHaOnK7RQY ieGGyXLAobBxwSSjwd256HM D8CrAyCCPdmzFuyMpzsQ1aJ nMyMCBNaXRyYWwgdmFsdmVc cGFyfQ== GROSS DESCRIPTION i8jttKEpQSIduHUgBbPuPOF (test code = 3366) yWCLtq2jpOHLzgWXdXuTjZl NcZnRuYmpcdWMxXGRlZmYwe 9oro400zKEmp0miVTCcWkD4 eJVoTFQpyFWnH082YTNaHTj gj7ovg3XaFDZvpFFsm7V8CD LCienumYa9zXyyY59du4M8I vmfD5coVIZeZOAkX6XbCO0q ZCTaSvy9VSC3WDF7SSTyNBK pG6CdOJ6rUAWsnCDkHMu3m7 ogmXvwXDZmULO6y6xsXEkau hSnMO5cfd2orVb6u8fmpoFh WTBnVHUcuXKMQWHnG0SvfIi kNu5vuZm6nLsdWhoaZNJ8Yb r5PG0fmm02ucg0bZlyEZIei ihmYpZ0KJifIXVukwjkRKb3 MFxtYXJnbDcyMFxtYXJncjc yMFxtYXJndDcyMFxtYXJnYj kgWAuhCCAyPDZ9DCepg496A DB4RBrjj1mqe3colWTiKpf0 OAKuVwTsTyhjGQlbe5Yvz7y jHZNqpe9tHFT7wALixHctj5 C5pDNjKUPrwYCddsWmQPRmQ sQ3YUttTP2zsw43MSVlYVA5 sf7zwDZprWawiiXfyJEeFQr zK3WuXTJno809JJSgG1MaQS Xfv9G2gtYsTkCqQJUmzVF2z yP3QAYsAUy9qACrtpE1vxXn oYDfS0wnbA89SmYroQJnW0P qcI63CbNziKPiA1GfsV70Uk FcqYQxN5HabR73JaNtbDEmZ UDrjZHnYu2tgXVjzZYqn9Xt ySXgMUsjR55pz818JEHrrmS qV9zsqUBpdqnfzIVxneuyDR osnwN4PTQnGSYzSWdrQCDfM GZzMjBcbGFuZzEwMzNcaGlj rTouPXnoPbEyHRHyIPfqP7r cZjBcZnMyMCBBLiAgUmVjZW h9IJNxqH3yOj7zqBTttR1cg MReTUwuZXK7mICpZOGhTOAc AWBhLK85O5BlbP0zm6HpRKR ye50iIB4yFENhePWgPCvifu FsdmUgbWFzcyIgaXMgYSAxL tMxP87lmO3poDWqH7KuLAU2 IDAuMyBjbSBpbiBkaWFtZXR ejtE7AD7nkPmgfcA7uKHhlE SpAUettKOgANwlGAV5Vu1yz HFpLZLgntM4v6KoZGvpAYVv s9TtjWDuIJTgHzzrWUTwtDS jYUYtmbNbtGylsO8uObKaCa MyNFxwbGFpblxmMVxmczIwX AqfihoqBHBjBGfjG8gbPrDj RDRrwNklGWidr5DkDTUkWPN zFsWgZDDhSJCmw6cpXH44JL xwbGFpblxmMFxmczIwXGxhb gcsIMYlIWtxK6gjXcTlZXYs hRrxVZufw0EtCSOpYJIqGfQ ccGFyfQ== MICROSCOPIC a7ranXIxUHXddJD0UwWxHAH DESCRIPTION (test code nw2fxo3RjtNFonAHxRHgoxX = 3371) IrqnQdpc69tLB2yU94HD8rO BSuQfP1PAHargS1Kjf2ZYUh QMXioGVqE797e8ozy7uqzaD gmQV4jDcjHLYbtbirRmR3HC wuYQAbngzcQTx0GUjmCRIhd UM7IDVanZRgE1HtDQYzEB3c uuh3DWO2VAelETPyMgT8ZBL ovPCnPCZtiIazVLgei375OG Q7MqKoFEJbgnQshXyiaT6gT iQcRSQCJNMhf9LoZAMxKVTo cn0= SPECIAL STUDIES (test x3pzzVMlOTJjfIL0EyEsPNI code = 3376) ca0jhf0PkvKWchIQaDTnuoJ UqeeKaeg12gNX0yF53ZS6sB VVmHtN7ZZFctdF1Udu1DBXm GQTmnAUgC453HXJcQWSitTq ctfj0wL16CCJfoI1geHHiKN tubsGoFBypfxWpcwZaBgr6I KE2lWsiADKzobclPhH4VXag CUYonyldRFh8SAxrVVXhnFX 9WDBzbMXvM0FzHXDbCM0nsg e3ONE0NZyzQUVfHlH7RXCaa PVsYDOssEcdGCsop691CRA2 BvSqNUVhylPwlAjooY6qMfC cZnMyMlxjZjEgVGhlIGludG EwwTBtrMQ8bZ2hAE7kUOXra EWbO9EcFRRkxdCofBOkLAU4 nQJlrJZiOO6mYUzurNFeu0u sw9GbM4uzkKbmoRM7XB7bSA QuQFOoZHlas9RcuN6sCttnR NFpU5WoTYSQX8RERSEePMJU Dg1EFhHKUfDcUfPPUs7gSZw NUywgQUZCXHBhclxwYXJkXG OoVRDKy215me1gQCFfzESpu cLLyRGijF1mXQcvEHzmERrn wJMpGFfvl0qyDOCci3p2nAE vVCQtdqKfr9jyLBrxzlHzYY FsaRLmlQCvKGWuq30iCYxla FsuvYmxJBExr1UmrVxgd1Dt YpThDFxkv6AzC48vcERxcHU wqIetPUGyghDtDWZdu77hw3 fnCNQxQrR1vDHevSL1fMUwt CKpd6KliKqnSBZse5zoKXFw fe4qfjobaBUlj2OraG0frif yEQwawYWvvzHuIPWkv3m3hM UwBBTwIZJyEZjtpPg0FEJsk 177mi0onyK2cJFxVAM3FEed YWJsZSBhcmUgZXZhbHVhdGV xRLSlnqOfSYUihlAUfJ18pn 7skQL6k1WnYM1vu8NqgZT5S WNobmljYWwgdGVzdGluZyB3 SYVdiNVtPb1zfDBfZDB8KCP koVjotjWAgY7lXAMsTBn2HE UuChGoLwalygDJWDKeU4DzX WKehuWdvkdbKYR2tG1kw3w6 DKwbBs8tPKGmvdidh6yllbN pbEDah1LbARNfjlCyo8AeGK HyknTshUFnTYPgxeNcdb2gi iKyCDIkYCNuA7YjxyjmmSji ixS7JQCfUZEszSZzzZapCNA nGQm9PDocnkOlf5VaVmAwux NgzORqeeRpDK5uZCOhzSVrp vOmWGE6SWIlXIDMYyYtEJLf v5FbUW2hJEIosXmkWFIedW6 xl5TlNVDpl41vQWEaIMXWVA EgaGFzIGRldGVybWluZWQgd WkinGZjiDTkKBIiGGNbUP2i QUTdyzHcvSFvk2NkgIAdkmG hg1LmgfJuRBDtKUT6NjMOgB FkoVFozTRyslT8b7JnXGBgq qQfpWfjiBXbuWOlhGHmg3Hq gk9nQMQzk4tufZnjWP4dkGH iZSByZWdhcmRlZCBhcyBpbn Iek8ZhF3X9vR9rEFlck5EcH o3mVIOda4ZkbvKyKvHFnBcs ZVvmAx6cNETujvscyTOxP1F ydGlmaWVkIHVuZGVyIHRoZS BZyRosjAKghDGEUNUlwpT5b 7A7FWjflGVclbGcVY38DTNg TS1dsJBcpENrb9IlUPs6BVE zX5cKJE71NNxtMCLykGAerC uauQLzYBAwYYMcjkKwrf2rb KbouXTlk50luCX0zSB6MSCe gT1cU6VcXXnjTk0oBQOjjcr akXFuvQmnOg1suAFmfR== Gross assessment was [facility] performed at ([facility], code = 2777) Department of Pathology, [address] [place] [address], Technical component [facility] was performed at ([facility], code = 2778) Department of Pathology, [address] [place] [id number], Professional component [facility] was performed at ([facility], code = 2779) Department of Pathology, [address] [place] [id number], [facility] [id number] 15:29:08 Test Item Value Reference Range Interpretation Comments Case Report (test code Surgical Pathology = 104) Report Case: [id number] Authorizing Provider: Logan Russo MD Collected: 06/18/2021 11:41 AM Ordering Location: [facility] Received: 06/19/2021 03:44 PM PERIOPERATIVE SERVICES Pathologist: Tom Paige MD Specimen: Mass, MITRAL VALVE MASS- for MICROBIOLOGY then pls send to Pathology DIAGNOSIS (test code = [id number] 3220) uZzEwMzNcZnRuYmpcdWMxIH tccnRmMVxlcGljOTYwMVxhb uYxDFLsgHMeR6QxwhjyPEtw VE8xMA8jnHjcaZTlkWFpNDY mLwFim9dlb567jJPco9qaCX YPzytfwQn3iEvrP95he0Y4U inzU67ahRCuUQR3NTTcWINq lAQgKGFgYOR0PREgcIRvP0d nXMAjJL5jkmxdIFgoYSnoNQ GubVP8APNfhYJfK7PwYXVuB AabKNOxmja0WvFjEp6fzUJq eTcyMFxwYXJkXHBsYWluXGZ iExZqHZ0aUMRPAwIyZZ4BKS JBTCBWQUxWRSwgREVCUklER K2ZNiLvHI1UURVOKIYTRtdq cGFyIEZJQlJJTiwgQUNVVEU kRH7XXPPQARJJU5WSBNOKU7 TND6POVQDOTqXcP6EGQ6wKW MKBIKeXJt5wqYZuWXWQGASY VMndN2VRJS0ZZXJXHeTTIhU UM3AJE8UFDD5DF3RZQTIBSw MZYW0XUA6WHOYVPGCVBzHIX VVYKlDJT8hQV9ndPEodXBAg B42RMdGCTTQVE63fR6bYUZD OWJAMK9CHS0bVP2jEZNraM9 CLMZfESsHJCaDAZWIXUL7NW sZUZN0iKWHcwh12DIX3DsZu h0N9LZC3RGPbTFWrq6cgWNQ mbGFuZzEwMzNcZnRuYmpcdW FsPFRaRkOlf0lgk183xZExu 9xnRBJfCoA7gKRhXOWzySHu I883CBCsJPdfc8spe8ImGTU tzHEip2T6XJIMbhdxpDj2uP raB24vw9W7BgdkT3roOKCjT LCiT3PnPF2nFUWeUar8TKH3 WCC6DSDvZKQgT7FeUM4kBPQ ijJNfBCv1t1bawMprPVSiGB F0i6sqJJjjltKaIK3alo0iw Hb3b5cttnJpPVIbXRJshLEH AHKzV2PihWryUb9xrEw4fIc aFaxoJWL5Ibh1XN8wop67uo h2bNwrRUOgcclcEwO0PQwoL FZwnfwfXHv9IClwEIYwhHM3 VMUqcKYyC8EtRSCeIL1gylc 1GFC6YBcoPNOnEvL9QTDhmQ UcQSMdzRspJKjyo123DBO1F xToOG7qZ1Wyd1C4lH6agBQr FDYhvLXeJoMiNEVhoc7twEV xXStdk6JcOKS5eoY9iNBtfC GfTKZbRnN9AMmpIT9nxh69T QHzQCU2zp9caTHenXzajmJp cDPaZYvkU2UiHLZge827BZF pR9IsBEVcf4C4huWwCmJbGI UbtHX1odZ9XFNaWU6kshkef 1pwDHebKWdkPROuhlN1htX3 EZYxiITuR6LfaH2fPFHkHS9 jgqrev6iwOCL1NNqwKPDtNB Q3GzOpRRPes5Cbrld1QuUid 4HyxOFcOFpxL29yk005JLCo wnXuT1necJUwppuamZUdxaj cIGuwisW0EJYkGUoccvgsZQ YoRKkhE8dqCzWaRLJiqRuaF Ywcm8ZuZQWmSTTgQvFeoUDx RVWnBfc9IKWudMBdDTKlPsV sJ2fnylueMdWCSRBkt9ppM2 mpkKQKzJMgY2PeUXnjpaVgS ReqPLxoYoDkJRCeEP36CCX9 ACPonm98 CPT Code(s) (test code g2yldHUoLTOlkLH8ZgZlLRT = 3357) vt1rfw7XnuRRviRPnAKzshC AlkaLrxt59cMC7wW45LI1mG CDvWiV3WUVtogV8Fjn9IGGg XNMdcKYjF082k1cys6gehpY efVN1bRigFTJylloaEwT7BE tgPJDwkumcRCa1CGinEOTpw SP5ZMTbvUTuG6ShAYPhKR8s xqm9JLU2CQhvVEIcWaY4TBM wjGWoXDQouFukMCpxl392FC Q2HtYgGMJjvlElzZaruN6pG vVfXKO8GAHmQTekHBrzNXFJ I4kfGPC4 CLINICAL HISTORY (test p5cgvIZdZTOcuOV0YnImRVO code = 3356) gv6iux6VkqBSjjAXwUAdefJ CernTahc40iGJ4pF20IR1vV WMoYsP2BLSvumS0Agm3WUNq YAZjkXGrL245g7eys9odqaR juYQ0eNgkZAYtontiKiU5LH noRUQlhoyuHSq9LPuvWQZkl GR1KCRlbKTcW2XuNMIbYO7i pga9KNH5YTdhOAEdUuV3DWY rcBFfGTNioLpvOAued143NQ B4KtDcLHVxcoZvrFtmcA2zQ fBgCAFRmoXqG1LmMDc1uZXc cGFyfQ== SPECIMEN SOURCE (test p6errLVtNHXspXB5BdCqETH code = 3377) sy6djm6BjhKJsoFIwHYzgsQ BxksGkzd66fIS4rY49NU4vW CDhPiD0ILWtcjF0Xvl4DQGd IBCjcHElK310y0djh1xcaiD noMF7oSudZZSiyxuyGpN9KX eeYCHoqbusJKl5ZTpdFYPpr BC1CFMueYQxA1NcICYgQQ2e odz1SCN3MDtgFHDuDvK9ANW poGIgZPYymFkySYjcn145VN E1QgFdTWIfaeJocFlntF9wK nMyMCBNaXRyYWwgdmFsdmVc cGFyfQ== GROSS DESCRIPTION l7elsXVfWSLzfCCeXmTfFRN (test code = 3366) xAWXvl9vlNJWjpBWkPzSnPb NcZnRuYmpcdWMxXGRlZmYwe 6gpv346zMAxz5gnNEEtFdD2 mMPpHTFqkOWmI260KTPhIUv zu5fbi0CrZOYhjKYqc6M6EW WAplixkZw8dTuqE85qs4J5R naeA8xqOHDrCFYcH4VqKU0x PZDaEik4NBQ7GVZ5ZCNbNUW dS8JpYT8gYZKvxUCvCZl4t4 dtvFpsAUItFWH1x1sgAWtff pJrFS0tra0bdGl2t0freaUr BWCrZVFpuGTAPXEjM2QjrQj eHr9dpLx6jAsbEadoDLW2Ge z5ET7lvi04exi8zEcyVUGem smxKiI4QAtjUQXjliffOSk8 MFxtYXJnbDcyMFxtYXJncjc yMFxtYXJndDcyMFxtYXJnYj kxSAabHXDyVXZ9MRten424D YQ3VDrlc5peg2awvZBuDen2 VYJbHdVnUnyhIVrrl5Qnt6t oQZYabr6tKDC8pQRgzApva4 I2dLTgHRZbuBSgmjCvSEEcV zY3DZcoJG1fha63QYIrPAP7 ub2mxDKmvXxuxaAfsDDoBNh fY5HaYESsi961HPByC9TiTT Ckx2G3pwQxGrNjLISaqYG7l yN3XLWiFVu0bDAytjD4dwZf hRGwE9fmqL99DaYusJOkJ0K ftH17AoPhlPXrK4LyiE76Hf CcjSTfG4FwoV58VdIozZHqB LAbaDYwTk3ebTExkNSum6Kt wTPgRKyuT45pv328KFKwwxB mX0hfvOClxbegjUNhnruzIG mrdpL6MPYeFXCvFMhjTUIdD GZzMjBcbGFuZzEwMzNcaGlj sBkqGBrcLuRbKVKiGVreH4k cZjBcZnMyMCBBLiAgUmVjZW t9FNFkqN4vTd6nwJPveU0cc RUxNYsdTJK9lMGxQUBlBSOc XNHtWO34J5EaaG6bp4OjQIT zw00lAF1oUYXtcOVaVHqvgo FsdmUgbWFzcyIgaXMgYSAxL iHbY26mcE5rnMXfF5OeUZZ6 IDAuMyBjbSBpbiBkaWFtZXR sbqO2SE1koMkjnbL3fGOcyK QjGQoonVNbRGqqKWM5Gb6ea EJjIRAwdcQ1d1HmOCwsCWXl y8WlvQPjEKWsHcohRXJnvDM kGYUcsdKglNwrjP3rPpPeKo MyNFxwbGFpblxmMVxmczIwX OdvathjGAJqIEwzU2xvZhPk RJQvlFlqPTmss6KfOQYpETK pJtThWIGrDDFdz4veEQ61SI xwbGFpblxmMFxmczIwXGxhb wukPQItFTsoQ8prTjPnJIId cFsgOGoeu4IbPOCoBDRdMfD ccGFyfQ== MICROSCOPIC o7vmcGJqGMSywDV1VaDjABE DESCRIPTION (test code sj8zdj0NwbYHwpSEzFUzsnP = 3371) UiiqAhcn69rBN0iE49ON1jW XUgPwS5YZAjfjQ4Gzj0JZZm ZCCpdOSzY112z0pze8ispbJ xgKK0sItuKAQpklfsVnV4ZG idDWUflpfkIMh4UDuaJILet HH7LDQxyXKnK8AlAOJjRF7i ihq4ITM6AMffGEXyVsO2FVR egVXlPAKzdWdiASuxk635OB O2BuLbKOHzfqDedDidoL9sL eWcABJHMSXyw6QpRJAfGPOr cn0= SPECIAL STUDIES (test x7kmkVUpQGDuxET6WxXpKJQ code = 3376) ne7woa4RrmJWykOOnBGgwtV TrjsHxsg13pYY5iZ23MA0iQ TYiYcP8YVKqpwR0Zro0PTRb DGNauGAcL972RFFgRPKuyVm xfog7tK33DWDeyB9msXPlDG wbgxPfSLtqwyZofeFqCnz9N VZ4rKzqADHbexibIrV6QBdx OQFsknobCRo9RBvzXYRqjEB 3TVEjfRPhG0AlDLMjZA0alb d7FQJ6DGaiVKQaXeK3APHjw ZAyQWMykImsRVdkz660ZEU1 KaTcVRCesyDtsNwglQ6tUmN cZnMyMlxjZjEgVGhlIGludG VejTNmmVT1gW0nSU8bUUXum JOfA3QbGFQjceLqdCYnKLP2 cHKgnVFxMT0cWQdjmWLdw5e jv5XxX7siiDgdlUG2AS2yXZ VuWZEsOAozt6UqpW7wBgthV BVfR4PgTGUAR3CQHOWsDNDA Bn1DMzGTSoNtDlQDSj9qFAd NUywgQUZCXHBhclxwYXJkXG UiFBXXl974jo6gBZWhoDLqq tAVpSUkiS8fSTboSKgcYMca dLTyWEcvz5pzMKBgx7x1fJX wEFZxleZvn7poXVyshoPvKF JkkSGbsXGxDANna04pBMwkd FjvcHhiGGVqc8MxaHznf3Wa YoUfPNwdj3UzQ70daRCfhMX klIlgBPSngyIzPSOkq60qk6 acLJGoUlE9oMQzmFE4lBZmb AUyz6QjkSclARPui5vqAYTi jc5igcchlWJki5JbrR0siwe uRGnxeCBglwByZWUbt4y5hM IbEFCfYBUkSJpdfIn0TESoz 668ik5ssfM1tQOiXPY7ZHvy YWJsZSBhcmUgZXZhbHVhdGV zIOSeeiFtYHGqrwCUcE31vm 9ndBW0x8JtNJ1rh9RdyZG2Z WNobmljYWwgdGVzdGluZyB3 RNVskIIjOt8oiSQgZYE4YTO jxEhrugMEcN7sIVSnXWr1AH MoNeIdLldbopBTYZAcJ8BoU CBoddMsysghKNT4sI8hi9r2 JUsoVs1mFDNzqhblo1uunyU hxJFkz0NqOVXuzlOmp1NsFV AsqmOwnSYqUVIulpPwyu4tj bCxYUXcKJSpX9SnmesoaCzn ytG2VQPwIYSieJYpuGkfJBZ aVNy1FUapfcBmo6KbWbQfhm SiyUJewfByQD4fSKJxmVWki bRqIWI0XKRpMWEJPeHuXTUs u2ThTY4uNKLhwSpiBWEkuI9 wz1MfEPXho39bOFRjPOWUWE EgaGFzIGRldGVybWluZWQgd HnnrLZlxGVfVHTrWBNrDE5e IQQbbbXgaWErj6XimKHcfjB hh2NgfiKrKHGcMUD5WrONrB KxkLUuhIRiibG5s8CaBHFmz nTerXyzfIIzsYMidCPqy5Vb ot3fDFXoo3pwtSrtYI1puIU iZSByZWdhcmRlZCBhcyBpbn Ude3AqC7Z3pB1tWKuzh1AvO g3zAOKon9SassTaNhHGgWvl WMxlBc3jSGLamsgfyGAgP6X ydGlmaWVkIHVuZGVyIHRoZS GUpPjfgBXcsXHJUXZranR9p 6M8QPkakQOtwcKeAV36TOIx XE4lxLIroCTgh6FfIFt7UOI rT2fVSY72SKyfAKKalNIxuL ynbSRcEAKyAXQvwnVaqj7yx KfmvYTtc15agXP8rDB3HBEd tW8fO8QoYSluGi0iRIYfmhq bpWNncHvmVo2xaRFriC== Gross assessment was [facility] performed at ([facility], code = 2777) Department of Pathology, [address] [place] [id number], Technical component [facility] was performed at ([facility], code = 2778) Department of Pathology, [address] [place] [address], Professional component [facility] was performed at ([facility], code = 2779) Department of Pathology, [address] [place] [address], [facility] [id number] 15:29:08 Test Item Value Reference Range Interpretation Comments Case Report (test code Surgical Pathology = 104) Report Case: [id number] Authorizing Provider: Logan Russo MD Collected: 06/18/2021 11:41 AM Ordering Location: [facility] Received: 06/19/2021 03:44 PM PERIOPERATIVE SERVICES Pathologist: Tom Paige MD Specimen: Mass, MITRAL VALVE MASS- for MICROBIOLOGY then pls send to Pathology DIAGNOSIS (test code = [id number] 3220) uZzEwMzNcZnRuYmpcdWMxIH tccnRmMVxlcGljOTYwMVxhb aVhFLDatBJrQ9QmecqnDWsi UT9gGX3wyPtbgAIrvRHjEUW vFxXfz5vdw109nODvx2rrZG CDnkapdPt0wSjiH65ki8Q0D ssjF32ziELnHXL2AJBiVVLl qRFvMVYkUSX8VUHdqOAdO7d lULWkAP0upzavXDiqFLevOK SfaHY7YBRctYKfK2ZcFYCbP IzhZXBylnp8KpHaHk4ekPKd eTcyMFxwYXJkXHBsYWluXGZ uUuAeYN2xSOLHUkXpSG5ZMK JBTCBWQUxWRSwgREVCUklER I7QWxKwCY9DORUQDKJVJgog cGFyIEZJQlJJTiwgQUNVVEU tGN8PRWHVBYZCA1YJGHCQP5 FVE2SHBLDCZeGuP5OBS7lTO CRUDIcIQu2hyWAkOCXSWBEC CQijL3VBIY6XIOHPJnYBEmN GN8EVB3UVWZ6MY3CBTKSYIt GJWQ6GLL6FYUMQCVREUdYPN WJBUlWLT8xUI8geHQcqTKIl C76KAmQWWAJYP96pY6iMZEF PSQKIB8CXO3jWD0nBZEioJ3 SRNUyAIfAKSwKYOSNRCC6QW aRKXE2jIFJmfc76EKE6NmFv t4A0PBL0XSIgUEPzr6iiRXI mbGFuZzEwMzNcZnRuYmpcdW SxIDTrPeGnm1gpe761mEMdq 2ztXMGzSwE3mGQfAFWexKNu O113JCGxIJrwu5fek4YhOOC ouWWin3N6AHWIyocjcCy6pJ hjZ03jo9V6LcnkN2pgJEPzL LBrI7OwZY1nTGZvEeo1YLG0 GOR0JRDmHHVzO6VnFD2oQJZ emJBgQDa9s3fcxDniDAPaHE H3t0ehEXkqouAhYB0nmr9px Tx4f9bqvlJtSLAbKDAubIRP OXYyO0KswVpjSo6hrLn1wKw uWnrbFRZ4Esq0SN8fch24iu d8kHcuSPUnkefiDeE7PXhwK MGbhgxyBCx2MSraKXZtrAX4 APShjRGpV1CiXLTtUL9mjgf 3WCE8PJwbSVBsFrU1UUKozT AsFGBuoTnlDKewp701QJN7C qNcMR7hE1Gsn0S7bL6agPSa JTXnzSIxPuXdVXTkcm9nqEZ qCVacq0RwENF8ycX3bNFzhF RqHWTpPjW1MAqyIT0kex98V OWaGPG6ii8cmMHuzVnrcrHi cQXzCApcQ0VfQPTge831LVN oU1FjYRUbu2B5saWrUbXiWZ PecGT4rzZ4RSZkKQ8ahdipm 6rrEIejKSpwRJGijnX2kxD1 VMQwjRJfJ5IegY9vYHIsXE6 tgpmlp8mqBAT0LPelVDVvXI B7FcGlEALvy0Nphjv7TwAyl 8EgeLHjBPrqR60yl388PSJj ctNcM2bvcZBpyhogfVJhlzm qVFrfjcF8OFXpIGwnntbmCB RsLRqnL9jlHwZuDARgtBdlD Fmnk7RbPFIwCVWcQiUdnHEa OSIxIiz4TJYhiXQiYYJyZcB xR3kypxgmVoHNDAPjj6dxO4 eqmWWKwRHjE7PlQUpremCbQ EwvZMmxShBqCZVcYP76AOK6 BXFgpj25 CPT Code(s) (test code t8aurVInHUBupET2KmUiJOC = 3357) if1jmq5BtpBVosIChQPddyO KjyrVkrt97yBM2qB19LK7yS WReDcI2VNNhseF9Weq9RIRj YORayUToN303k7toh3zokrZ nvEJ1eGtsBIGegxykTtO5SQ eiUJIzhjebTXh5OPzhOMCck PJ6OCAlbKFxH1UgRJGtQD4z xbb9MAW6WIwhWXSeXnR4EHY ylESsHSQtpVuhWVmyd634XC C8QdXgNDXpalVtlJhotQ5rY cAsKZZ1JKFqUPiiRMvuSYFM S3kiIRN7 CLINICAL HISTORY (test d6iboKWeOWFcsXF4ZcWsUEZ code = 3356) ek2aub4MflQQbpHRwOYbnsP AswzUwbc63cQT4bF81KW9bK HHsXmJ1FAPzeoJ2Ith3PIBl EBPtsKExG906t9hka4fhmuJ iyZN7dXjnVWNlihbwIoD6FK lrDORbbrqdPSk0TQrqKTSbg MC2UWZmmSGtV4FhZUZzEY9b zdc1POY8TSexZNGvAjU6WLJ xxIQoCVKigMlsESweb613WL H0YgJvGJJyrqCqxZhtiU0dW bKmZNNRxiYaX3RsYTi0zCJv cGFyfQ== SPECIMEN SOURCE (test c7hdaYWvJOOweUK0MfTpWAY code = 3377) wn1lmi8KvfSPnqWRgOMjmqY YhiuZvnp38wUI6cA98EV0wN ZBzBsQ4AYGohoY8Spx4EKMl SJOxqSEdE184k7kvh4yusjS phEQ8kDvqQSEnwcosIjP7UF rmXNCxnjvaFWy0MDmjSQOlp BD7IATaaLFwD8PrIIQrWG7h mmo7FSM1FUfpAAZwPqZ0HLH ivEQbUQLbqKcoNJsth494UE S1TzWkSHIuyjSieSvckO0oL nMyMCBNaXRyYWwgdmFsdmVc cGFyfQ== GROSS DESCRIPTION m7hptZAdQQBtnFReEhKcVVU (test code = 3366) yXZGpd2ywBFKjcULyLaKyIm NcZnRuYmpcdWMxXGRlZmYwe 9tmu001rZKqc1ikFAFwEvR0 gLVsBGGaoHYaX105ZNVhUQs bx8snp5XyVDOvsQCza0G9JI YYpcvghPa0dZcaE02jw7J9C lbpN2hqDEOmMMLvD9NeWP3s HYYwBmf4MDL9CMK1PPZfJTZ bM3QpLH5fXUFqaHYoHCm0u7 byaUpyYYPvVIB2j3rcWBgtv yMfHQ2iol9gyCt9v7pafuJx KWLwPDEtfZMUVMAhV2LlrWq eSq7dvJp4yBanBqhrGKH9Sd j4RZ8omc66aop3bQmdFYAnk synVbB8AHrhCSZnxunrRYs5 MFxtYXJnbDcyMFxtYXJncjc yMFxtYXJndDcyMFxtYXJnYj eaARpiOGAyRLG3YLjut558V GL2APozm0sdh3gmrHBaQew0 NADjHuWcFnijOXvak6Owj5s tWHAkrr8nNNT5hHAhcDclv2 E9aYXiJHKzwRYlahJrZADuB kR9WZelIP0gtx39UXNgEIM4 sk6ohYQrxSlsoqEiiTGgYJi tK1PyVLXeb377HLUwF7QzDD Cyd5L4ztLxEfHeTSUubBP1f iA1SWBqGOj8gNBwgzS2ayUo dFEwN6acvF10RfNglLFxC7A nnD44RuCknILbB1NlxZ36Aj HhfPCxP0AqzE38VtPchHGiF DVnqSAzEg0lzTFbuJAbp7Tu aEHzLFuyZ52rr036GJWawfM eE3gepYQzeoetoLVuxlxhHF viboD7ZYXeIQQzEImySQHqY GZzMjBcbGFuZzEwMzNcaGlj xJhzURbdCgBjBGEcNXkwN4w cZjBcZnMyMCBBLiAgUmVjZW n7PQWilQ3qOp4ccZXonT2vn TYiFHawHUM8yJDlPBCxVAMc QRKmJI15R0JydM3np8MnCFG mx93rOJ8rPCCsaAQqAErqvw FsdmUgbWFzcyIgaXMgYSAxL eCeI00nvP1hnKImB8WbZXI7 IDAuMyBjbSBpbiBkaWFtZXR ttxZ9NG5ozRkathV9gPFqxN NbNEywcRMzUNddQXX1Zs8nl BAaVKCgtpT4g5JuPWoiZYJr n1CrgGEzUMLzMdllCPWtdWV nAVUndfKuqWhcpI1iYzRiXr MyNFxwbGFpblxmMVxmczIwX WwntnlmGPIrHVhzJ9sdNcWk HABthYleJDuaa9TbLHGqEZV uAcLkWOGtMRJll3djXT89OZ xwbGFpblxmMFxmczIwXGxhb wonAMCbTYgsL9ibRlMzSMYi kXgtYBlxz6CsRXDePZQjBdN ccGFyfQ== MICROSCOPIC i6ucoWThPDVniSB1BaXhNUB DESCRIPTION (test code sg4xvh3AmvXVjcQLsRClwuJ = 3371) GytuJsrt88vZB5jI35WX3yH BKkOiL4HTZcaoW2Jip2IEHe NSRodKGtD866a0wac3oxxmI kbWV5hEiwDTEmwembMzI0VL hhPKUwufpuHAc0QFhhTWKrb EN3UFJaiRZoS9EiGVQhYB1v dfj2WZA5XYfqJAYrFqF0KOK azPZyRVPpbNddCXibn609XV O5FsCcTJBrjlVqvDepuR0nQ tFdRAKPCIYvr5QaOZIqUTHz cn0= SPECIAL STUDIES (test h2pbkGWhZTHyuCD2EjPgDVU code = 3376) vb5ldd0AejAGvtRSaFWpylF VtmqXrfz82wOF1qX67TF0rN RAyLmP0TYCzfiI0Iyh1ZONl LQKuiXHkS043BJHrINVomHu kezc0gU58KRXrsH4awRSwNA fyafPuOQswrjAivdLmVom5N JF6vMvmKBMwrxbtKpR4QFyq AOFmffczTRi2SDziMVQueXG 1ENVjeFAeY1QiMHHqAD4pgj w3TGY5LJolYFVrYyC7OBOhm DDfIZEvmKhgAAifh048BMA6 GyIcCJZyaxKbaKthjH5zGqQ cZnMyMlxjZjEgVGhlIGludG UyeXKiyUK6fE3xKM7wLWXcb BPfP7MqKQSuhnVfyGOmXKU0 tGQwjYHePM7bWRdlfWHxm2p kq4JyL5nvyFfslWI9DJ1hHX EcXKAxVXcaf1VbhD6dPfqlD RFoQ9PeHCHRZ6POZHLvZXHQ Gl6GJvFEIvDsJtZPCc0fKBi NUywgQUZCXHBhclxwYXJkXG VmFQFEq198rp6qZKRofGTmi wTJkAOluE9jZJdgLYzgGFzl yVNdOVscd8vtJFRvc5t5iUA qNPZmndJok8rdJJsjfnHgQY LxpFKlpYAlNTLib00xEOtyz NhqkNuiVHJyc6YnbMatk6Hb DjFzFIgfp0ZvP11fqKNmkZF lgIpsQXXcazOmSRWdu74pg8 lyGDIkIsX5uJBplSV5fZLbf LTbp6UapHfrJAWdq1ukDRBy oz9ybobwgFUmu4WfyY1zvyd zJGpzuXSopbWrJMPfj3o9tA FaAFFlIPDkFQttrSc9SMWmp 326lh9ygwO2yKNeQWB3GWdu YWJsZSBhcmUgZXZhbHVhdGV cIEXpkzLsAWOtfrZHeN09gb 3xnNX8n8BwWK3xv1NwuXI0N WNobmljYWwgdGVzdGluZyB3 XWXdgVUxMb0xnRMxVXV6PFR pdSyyuvNVvS9aVPNzWQu6DC SfMnEzMvhmuhSTDGZnD6HyS WVlibYljnotACU3zR7jh5m9 ZBwwGi8tHBPhkvryg6ziudT oaPQoc4NsNWVypyQkn5AuGI VufzCegIZpXEMemzJaht5dh lZdSFSfZRJdS9NwthlrwSqt ttO9CJIuQRNhaVAqsWqzTLN qAPs0MHcqxvUiw8KbKvNqdr ZbkNVrnwEwVY9aKOMpmRDeo hVjXVU3BBWrRQCTCnUfZXPb d8SkTE0sDIZdoCtsKQNvsC3 ox7JaNIZlp30tWKZnFMSQYB EgaGFzIGRldGVybWluZWQgd WpgeDBllNIeFAAmSGZwSX0g GAGvmbWsgVVlw8DxuONzuiU om6AyoaIwYKZfCDD1JbQOoT YxtEFnhIBmvdB4w5RvMNObk yUztJpcoWHzpIOzcTWun1Vh td5nSLUoo0jiuZkgZY6ivSK iZSByZWdhcmRlZCBhcyBpbn Oin2XbC8H5kL1uFDbgz9QzA k1rFSHaq8HieqBjLcZTbJni YObwGo4vMHOdcaripFXgZ9K ydGlmaWVkIHVuZGVyIHRoZS LWqIfbePJbkHEROABybxK3q 4H8TPijjZZucsSpOF13CVCu CE7piCXlwXMyh7NtZVk0WYP uU5zKTM66WUyqKIPrgDBqdL pyfFXcZFWjKECioqTkrk6vw SekoJKra51brTB9zAS8GBYv tT8lL7CbJDiePg8eALKkjdz tsDKimUvoKk5hdAIcvV== Gross assessment was [facility] performed at ([facility], code = 2777) Department of Pathology, [address] [place] [address], Technical component [facility] was performed at ([facility], code = 2778) Department of Pathology, [address] [place] [address], Professional component [facility] was performed at ([facility], code = 2779) Department of Pathology, [address] [place], [place] [id number], [facility] [id number] 15:29:08 Test Item Value Reference Range Interpretation Comments Case Report (test code Surgical Pathology = 104) Report Case: [id number] Authorizing Provider: Logan Russo MD Collected: 06/18/2021 11:41 AM Ordering Location: [facility] Received: 06/19/2021 03:44 PM PERIOPERATIVE SERVICES Pathologist: Tom Paige MD Specimen: Mass, MITRAL VALVE MASS- for MICROBIOLOGY then pls send to Pathology DIAGNOSIS (test code = [id number] 3220) uZzEwMzNcZnRuYmpcdWMxIH tccnRmMVxlcGljOTYwMVxhb uQhZCBiyHAdG0KguijmXOse AA2qHI2sqHbrzZAbvWUcULE sRuNum8fdh502yDIww2uyDI TDwrilsPv8gMmfE82vd2B6M yntN38yxYTlHYQ0TTXwJMCa vAExDERwXVV9GSUhnBJyV4t yJRBlVO0lkedjCDncBVdoZR XuiUO2YDVumHBhH1QmOJMqR LtxDVGlesx1YvEvNr8rjFGg eTcyMFxwYXJkXHBsYWluXGZ nVvKhDA0vCZGFOkEiGT5YCJ JBTCBWQUxWRSwgREVCUklER S6FAlSsIB6WUPPCOIMBWdna cGFyIEZJQlJJTiwgQUNVVEU oLO0QLNIXXGVMW5AIIYBDX0 SJP7GIESWHBkYeJ6CHA0jCZ EWTIZaVQd9wvETxREBDWATE WGvxP7UIWM4RKVJUNbEXFmU MY5LRM5BHQO9CY4LHXOWDSv JEAL9ZWS8GQTDVIDIWDrTIN CDBYwNMO4pKS8mpSDbuVJSl M20NHsQHQTAIR14gF3qGZGX RRLMLD3VCK9fPS6dBFNtlX4 PUIYfFZlHKZpXSILEHVF5JM qDMUT6eLKJhjg23KDO2OkMt j8O3KYJ5CSKeYXNdy5ytUNZ mbGFuZzEwMzNcZnRuYmpcdW ZrYAJtSvZqj8ylc203cTKgo 7erYCMsCdC2dHMnWZMpcSJo M088DZMjYRqpy4ltc7BqPSO exDQps1U7EYJGbbypvIu6mW swE98zd7U7CtlaR0qiEGRdD UQuY4DkXC4uMBSdNta8VLG5 GUT4RWVwBVMgZ4UaJK8bUWE shNLuVIr9c8hvtSzhFUOmQK P7d9ujQYmkviMdHB1upc6vf Tu5y7twzrDqTOEeWADdxLMS WSCvV2RzfNnkBe1mgFa9bCd fNmulYAI9Spg9FS4wbo65ed m8dBudCWFfavokFwL8MFpqW VJrusqvVVd5GTtlBWQutLM6 NPJskUCqZ6HmTXAgKC0hvvf 4XQJ4PJneMRGxKvA6VPKjnJ OiWXEofUnfZFcgd883AMX4C bCtVO4bO1Rcc7I3oP5qcIOo DYOpiXNhOyUgYLIpkx8jcZU yLWxos1XyUAD7iqK8fRBzyO VqTABzScX1BJraHL9cbp51D DMfYBN9la0tjAIncLkbmxEk aUPcEGbbP0FlNYLsr395VXP cH7YfLFLqs9Y1iqJtEhGlRX UezOG4noZ0LBKbVO2mpkuxa 3eiHMbeTIeqFPOjckC9vtG1 VOCzlSXbA5YerN9qDQLuKA2 sigbib6cbWBU7ZBitHXYlWQ A6WgOoPIJcn8Gvyhv7TpZwf 4YbnBQaQOnfV24qc728OALe ggIaA1oajXNzsuskhSJnbgt hBPdgteA8YVTaMMzwvumfVB ZpJLueA6icFhYzNGZukStmA Tvth5MsSOPoLYWqNqNkzHUg RMPdZid2SEWixFJlMPIdKjY aD2lmkbjlRuTOOSDxe7htF6 phxMZPfMUlB2ZlNAplajZcS AunDYjaYgLiKWBiIE23PUV2 QDAugv59 CPT Code(s) (test code m8uejXYgSMMdxBQ1CcKcWXU = 3357) ui1yxf4DkzNFkbVBuSWmzdO HzpbTovx63tSI6pQ70OI4iY TShRwE6WUEnzfM8Qoc3TSJp EEWaxFOmA107d5fqn8ocqpW eqGB3mTbaUVPuapvaAjW8QW hhPIHbucynCWp7VMbzWQRwx BS3RGGumWYgC3HjWNJzDY3c lgn8XFT1VAuuTPEyQdT5SAX omQGyMXIcgMxcIMpdh316VE S5FfPgMIDmetQhrCjzmE7qH wBjPHU5TPAvJHosSUqdEIVU O9goRAK7 CLINICAL HISTORY (test b2jgzEBcMSSdqEG0XaQuRXX code = 3356) zc0nuq6CnjASlcBBnVCmomS QzysFgtq76zSB7vV80ZH9oU QXhGzZ7OLImszM0Ihj9GETx HECqwGWdU082l6qas5jlcoM lqEV4nKcdDHIuzkifGsI3RD qaSDHsmdlxABo3GIxkIOXor PM3LNDuwUKuT7RyDLZhOA7h vux6QJZ4QAiiTKIiYkB4QIA exEDkCAZeoLgqGPvvn794GA V8SyWrXYUbbqMpnWbrcJ4iH gChJJVVsnQbD3PnIOm6fTAq cGFyfQ== SPECIMEN SOURCE (test q8tdkSRlCLDndTR2FuOlBEP code = 3377) nq2ask5FfdABvkMBnYRscpW OimePnkj34fWN2rA72DC6oI MZcSzI1SDTunxR0Qvt6FQGk VOKopSBxI046p2cky6ynvfW bbGJ4pFyqGIXcmvaqFpT2MA ftNRApxzfuLUv8OCjaGYSxm OI4MPKhqJOiI4WiQKZdYL8v lnf5VYC2YKzjLSHgGdU3DRE htNBbFOOnfXmkIUmje837IB D2QbPdMAGvgdAgwSgulT8nN nMyMCBNaXRyYWwgdmFsdmVc cGFyfQ== GROSS DESCRIPTION a8rsbLTpDYKssIBwBgPoYTF (test code = 3366) eHTYan5lxOVYrkYEyQtIjWi NcZnRuYmpcdWMxXGRlZmYwe 7yvj049yKDwx8uwQQTxRyW3 hMNcPHPpmMSjW640WUHkJCh im0xhr5DdNXAmhDUxs1C3AE GNhsiojHr6sQzjD80ti0H3L jfmW8vpGCIgTMVxY4QmQZ9g TIWuGhe2NRT2BFV2CRYcSNC vI9SnDN6yCMBjeEViIIi5h8 jhgKobJRPhCHL2a9xsBBlqb oVgRE5wqq0naVm3j0whlcFm NSYjLUNolNPGATAuM9AdaBp aGt9lhAf6pMgaAsqeZYB6Sh o6KD9abq04wmm0xUdcPQPql zquFfT4GEudSMUhknrkIAh2 MFxtYXJnbDcyMFxtYXJncjc yMFxtYXJndDcyMFxtYXJnYj jiUVreKURjWXL7OFjdl318A IP0ILwhb5gjb1vqmCJyPox8 GOMnWzBkTgtwAGhoz8Tdq5a rSVQbqy2gOEJ4xULrlOiim5 V2eJEcTCYrfEHjfaOnOCDjC iN0QHnyVY5hpc41ABUdTVD9 hy5dqHYmjSeqpnYlbVCsOMa xO4FgQZSom661YBLgI8DwPL Vrj5N5rlQpFgBeKKBavPW9h bV9KCIhQBk7pVCahrP1ieEo aHFhG8avzD18OrEdmORvS7Y zuG78GkYjqWFlD1OrxN38Ok WeeRCvA3YujV23TrJorSBtH JAhtAVrYh9dgTPsbYWoa7Cq iHRqUVvkF07dl247YESdmdY rN2frvNDzcibadSUerdweKI lkgmO7WEIoGEPkDUiwMCBsI GZzMjBcbGFuZzEwMzNcaGlj gUnxCRvyOaJjEOXcPExxB9c cZjBcZnMyMCBBLiAgUmVjZW y9HIYuvA3aIb0mgVHhwW2wi ELaJSweCNN8qCMhOBOtVUSo SXDoSH13C0MdlO2ph0SnQGK vr28rKH4eWCWwpZNqKVcsdt FsdmUgbWFzcyIgaXMgYSAxL yKhB22nxD8daUSeE2SgWEF6 IDAuMyBjbSBpbiBkaWFtZXR oocD4ZR0kwWeetgW1fSBnrR RbNKvskHMlJOviUIE0Ds9zw WBfAWPwbkN3h4WeCNesCGSu y7YfxXUlQSPdJunmVEAroIW wACRhhfDolPczuA4pWqXaUs MyNFxwbGFpblxmMVxmczIwX TbkiewrGLFcSFmhQ1oeMrWo WQUtzRswMVwjg9JrIKTnZPH gWyYuYDIoMGEkj9eoKQ82AS xwbGFpblxmMFxmczIwXGxhb teoABAfGVuuO8tvMbPgAMNo kYtkFOlxc8HtNPHqGMDtEqE ccGFyfQ== MICROSCOPIC d2dihRCySJCatZG5YaHbUEN DESCRIPTION (test code sm6rmk5VvaLHdhNOmYCslgI = 3371) PfaaUjvv13zYG5oW63JI3pB XBsZiT8VVUgtgM2Gqw6SOTx PKMkcFBiM164o9htw0vpayG noAJ2lHccIYIccikwWbR6DV dkXFMydsvnLCh2ABqyHYNhm BF6IXKmfJSxV6YpJHMjCK3i cfj8VMD8VXzhRSWfLyP0QAB iaJNuJGLhoJulHHivl044EI J5TwSdPZKbkuRboSejfT5cU cOsMDAASMIah3BdODDzZGNa cn0= SPECIAL STUDIES (test g7rinSLuGISewHH6JfZqMYQ code = 3376) hr2agn3SvrJZxbXWvUZkxyT GwyiZcve23fDR0mB85HC0yF HEzNaW7OPBlpxP8Vhi0BZQp AYIbgYKsT721WGKwWIMejZb ogbd9rC26SFMkpL9ifFDtPZ uxtdUjSPwbryGokbBbRfp3H LD5jDbaNEIvljoeCqS2VVsi BMXxmbhhWOq8HQsuBUOwcCT 2RIFuzPLbI1PdVOOdBA2uxh r7TMC6XAygPBOzGvK8FTHwb AZdXGWmgUvnGTyje628GHJ2 CeTyPHKilsVnpThyaO5uOyK cZnMyMlxjZjEgVGhlIGludG JdkXVbfZD5hV3rEU9kNADpp EZgU3CfNZJsyyGmlQTtBVS0 dUVfnDByKP2bZLayrAKgj9k fh9ZbG5tauTndlYB9CO0uDI FeUMUsOQdby8EusP0sNerhO XJxE3NoZFOSS9GVXOUoCXBB Eq7ELlCCDbLdChCGYh1rJVs NUywgQUZCXHBhclxwYXJkXG VcHYZJm929ox1sSKTuaDPxb nWBrVBqmR8aDKowXBirMTwv fMClSFbbv4irWPZef4n7sVI pHTZviaDng3ytBZqvwxOyEA QenDHrkPLxWUJlu05hAZenn HtvaSpwEBXmf1JoiCrkv1Bm BoVlAWcqv8NzY44boFChiZO evFnwJOCwjqGdFCJjr27sy5 tuTAXtVpK1qKCqnHF9iRCfv KEuz3RwhWgqOOCaa1rxJWQw jp5dikendHLzq5HeuM1moaq wRVwrnEPdnxLeEDKws1i5lN KiMYZjMLLfMPlxdRz1AIZpq 816ap5ezfN6qCDyPGG6NBnl YWJsZSBhcmUgZXZhbHVhdGV dLYAhdkPgMHMrfvKLgV84do 8vkKB3e0BlOL9pg3KacIX9X WNobmljYWwgdGVzdGluZyB3 HKGenQQzKk8wnGUsGBK3LAI fxJowaiXAxJ8gSUTfZLi5VU IvDmGsHwtlmrDLYZTvI8LwF LZzzwVpmrkuPYS2bI2gx1p9 SDzoXp7dXRThgipzt0pzthW ocAQty6XbEMOtubXut9YuMC HkozQuiGAyUYUmtwQppv8tp vArQRHjRREzL8IvvanaiZpm naY8IRJzPYVoiTTejFytQBZ qJEs3OGafssTxl4DuFoYoqc LyqEHmafYyVU8qFDTgpSPrd jJcAQU8SWKdVTGXHcQoSJDn y9SwVI5bVNOluWjmTRVhaQ4 mf1ZbUGDbe96zDVOaPJDUKK EgaGFzIGRldGVybWluZWQgd RhjhKWzqJGoITKqFHBwAH7u SCBxncHoiFYvh2GwiBHkcfY em2CpfxVyPQLeDQX6FpSCcN QfaCExtQWfnaQ3k2GfYJQeq pExxHhloNHmrXYucKRtz7Op do9sIFMqg8vjyBbfWJ3vqIU iZSByZWdhcmRlZCBhcyBpbn Ame0GwY1N2fU6yQTknc2ZcF g5sNGMvn3EbcjMsPdFAqPbf JOifIb7pMMQqxxeywUNoC6L ydGlmaWVkIHVuZGVyIHRoZS GFtStucAJohEPKQKEizfO0v 8H1BSpehFFdxuSnKU48NXOw CO1uyPTqxUVbe7GzRTy7XUP xT3uMEE75HUwxEMJjjBCnzN lslZQbTEDjRBNovoLafs4xk KlovUCyb49wtXG7pQJ2VKKo nZ9mN5UkZNjjLc5rAVWtocr lbSFvtCsiJb2xwBSqlO== Gross assessment was [facility]. ke's performed at ([facility], code = 2777) Department of Pathology, [address] [place] [id number], Technical component [facility] was performed at ([facility], code = 2778) Department of Pathology, [address] [place] [id number], Professional component [facility]. ke's was performed at ([facility], code = 2779) Department of Pathology, [address] [place] [id number], [facility] [id number] 12:37:44 Test Item Value Reference Range Interpretation Comments POC-GLUCOSE METER 98 mg/dL 70-110 : TESTED A T [facility] 6720 ([employer]) (test code = [facility], 153) 51490: Hand I Thermal Cutter/Techni kelle ID = [id number] for Kathleen fay (contract)Yohan POCT-GLUCOSE [id number] 08:40:16 Test Item Value Reference Range Interpretation Comments POC-GLUCOSE METER 120 mg/dL 70-110 H : TESTED A T [facility] 6720 ([employer]) (test code = [facility], 153) 76328: Hand I Thermal Cutter/Techni kelle ID = [id number] for Aditya brewer (contract)Yohan BASIC METABOLIC [id number] 04:46:57 Test Item Value Reference Range Interpretation [...] S NOT APPLICABLE FOR DIALYSIS PATIEN TS. Hand I Thermal Cutter ID - HIEN MRAD, CHEST, 1 VIEW, NON [id number] 04:07:00Reason for exam:->post-opShould this be performed at the bedside?->Yes [facility] LIND[facility]Y : 1955 Sex: FFINAL REPORT RAD, CHEST, 1 VIEW, NON DEPT INDICATION: post-op COMPARISON: Prior day's exam FINDINGS: Portable frontal view of the chest. IMPRESSION: Support Lines: Stable. Lungs and pleura: No interval consolidation or sizable effusion. No pneumothorax. Heart and mediastinum: Stable contours. Additional findings: None. Signed: Andrew Cary Verified Date/Time: 06/24/2021 04:07:26 [id number] 03:54:16 Test Item Value Reference Range Interpretation Comments PHOSPHORUS (BEAKER) (test code = 4.3 mg/dL 2.3-4.7 604) Hand I Thermal Cutter ID - HIEN [id number] 03:54:15 Test Item Value Reference Range Interpretation Comments MAGNESIUM (BEAKER) (test code = 2.4 mg/dL 1.6-2.6 627) Hand I Thermal Cutter ID - HIEN [id number] 03:40:54 Test Item Value Reference Range Interpretation Comments PARTIAL THROMBOPLASTIN TIME 40.8 seconds 22.5-36.0 H (BEAKER) (test code = 760) PROTHROMBIN TIME/[id number] 03:39:49 Test Item Value Reference Range Interpretation Comments PROTIME (BEAKER) 13.1 seconds 11.9-14.2 (test code = 759) INR (BEAKER) (test 1.01 See_Comment [Automat ed message] code = 370) The system [employer] generated this result transmitted ref erence range: [...] WBC 0-0 (test code = 413) POCT-GLUCOSE [id number] 21:07:58 Test Item Value Reference Range Interpretation Comments POC-GLUCOSE METER 143 mg/dL 70-110 H : TESTED A T [facility] 6720 (BEAKER) (test code = [facility], 1538) 65533: Hand I Thermal Cutter/Techni kelle ID = [id number] for Sheryl Bergeron POCT-GLUCOSE [id number] 16:23:05 Test Item Value Reference Range Interpretation Comments POC-GLUCOSE METER 126 mg/dL 70-110 H : TESTED A T [facility] 6720 (BEAKER) (test code = [facility], 1538) [address]: Hand I Thermal Cutter/Techni kelle ID = [id number] for OSMANY VOGEL BASIC METABOLIC [id number] 13:28:45 Test Item Value Reference Range Interpretation [...] S NOT APPLICABLE FOR DIALYSIS PATIEN TS. Hand I Thermal Cutter ID - HIEN MPOCT-GLUCOSE [id number] 11:56:58 Test Item Value Reference Range Interpretation Comments POC-GLUCOSE METER 122 mg/dL 70-110 H : TESTED A T [facility] 67[facility] (AKASH) (test code = [place], 1538) [address]28[address]: Hand I Thermal Cutter/Techni kelle ID = [id number] for OSMANY VOGEL 2D Echo W/Doppler(CW/PW/Color)2021-06-23 08:20:29Ejection FractionSLEH ECHO [facility] W[facility]Doppler(CW/PW/Color)2021-06-23 08:20:29Ejection FractionSLEH ECHO [facility] W/Doppler(CW/PW/Color) 2021-06-23 08:20:29Ejection FractionSLEH ECHO [facility] W/Doppler(CW/PW/Color)2021-06-23 08:20:29Ejection [facility]ractionSLEH [facility]Do[facility](CW/PW/Color)2021-06-23 08:20:29Ejection [facility]SLEH [facility](CW/PW/Color) 2021-06-23 08:20:29Ejection FractionSLEH ECHO [facility]ART[facility] W/Doppler(CW/PW/Color)2021-06-23 08:20:29Ejection FractionSLEH ECHO [facility]Doppler(CW/PW/Color)2021-06-23 08:20:29Ejection FractionSLEH ECHO [facility]ARTLAB [facility] W/Doppler(CW/PW/Color) 2021-06-23 08:20:29Ejection FractionSLEH ECHO [facility] W/Doppler(CW/PW/Color)2021-06-23 08:20:29Ejection FractionSLEH ECHO [facility] W/Doppler(CW/PW/Color)2021-06-23 08:20:29Ejection FractionSLEH ECHO [facility] W/Doppler(CW/PW/Color) 2021-06-23 08:20:29Ejection FractionSLEH ECHO [facility] W/Doppler(CW/PW/Color)2021-06-23 08:20:29Ejection FractionSLE ECHO [facility] [id number] 07:43:14 Test Item Value Reference Range Interpretation Comments POC-GLUCOSE METER 111 mg/dL 70-110 H : TESTED A T [facility] 6720 (BEAKER) (test code = QUIQUEANTELMO Vaca [facility], 1538) [address]: Hand I Thermal Cutter/Techni kelle ID = [id number] for OSMANY VOGEL BASIC METABOLIC [id number] 05:48:55 Test Item Value Reference Range Interpretation [...] S NOT APPLICABLE FOR DIALYSIS PATIEN TS. Hand I Thermal Cutter ID - HIEN [id number] 05:28:52 Test Item Value Reference Range Interpretation Comments PHOSPHORUS (BEAKER) (test code = 3.7 mg/dL 2.3-4.7 604) Hand I Thermal Cutter ID - HIEN [id number] 05:28:51 Test Item Value Reference Range Interpretation Comments MAGNESIUM (BEAKER) (test code = 2.2 mg/dL 1.6-2.6 627) Hand I Thermal Cutter ID - HIEN MRAD, CHEST, 1 VIEW, NON [id number] 05:08:00Reason for exam:->post-opShould this be performed at the bedside?->Yes [facility] : 1955 Sex: FFINAL REPORT RAD, CHEST, 1 VIEW, NON DEPT INDICATION: post-op COMPARISON: Prior day's exam FINDINGS: Portable frontal view of the chest. IMPRESSION: Support Lines: Stable. Lungs and pleura: There is improved aeration of both lungs. No new airspace consolidation. No pneumothorax. Heart and mediastinum: Stable contours. Additional findings: None. Signed: Andrew Cary Verified Date/Time: 06/23/2021 05:08:22 [id number] 03:01:03 Test Item Value Reference Range Interpretation Comments PARTIAL THROMBOPLASTIN TIME 35.7 seconds 22.5-36.0 (BEAKER) (test code = 760) PROTHROMBIN TIME/[id number] 03:00:01 Test Item Value Reference Range Interpretation Comments PROTIME (BEAKER) 13.3 seconds 11.9-14.2 (test code = 759) INR (BEAKER) (test 1.03 See_Comment [Automat ed message] code = 370) The system [employer] generated this result transmitted ref erence range: [...] WBC 0-0 (test code = 413) POCT-GLUCOSE [id number] 22:23:22 Test Item Value Reference Range Interpretation Comments POC-GLUCOSE METER 146 mg/dL 70-110 H : TESTED A T [facility] 6720 (BEAKER) (test code = [facility] [place], 1538) [address]: Hand I Thermal Cutter/Techni kelle ID = [id number] for [place] MSCRISTINA POCT-GLUCOSE [id number] 18:28:19 Test Item Value Reference Range Interpretation Comments POC-GLUCOSE METER 101 mg/dL 70-110 : TESTED A T [facility] 6720 (BEAKER) (test code = [facility] en[employer]otion [facility], 1538) 680[address]: Hand I Thermal Cutter/Techni kelle ID = [id number] for Tacos rene (contract), Amb er BASIC METABOLIC [id number] 14:57:30 Test Item Value Reference Range Interpretation [...] S NOT APPLICABLE FOR DIALYSIS PATIEN TS. Hand I Thermal Cutter ID - AAHAMIDPOCT-GLUCOSE [id number] 12:37:53 Test Item Value Reference Range Interpretation Comments POC-GLUCOSE METER 69 mg/dL 70-110 L : TESTED A T [facility] 6720 (BEAKER) (test code = [place], 1538) [address]: Hand I Thermal Cutter/Techni kelle ID = [id number] for Hole y (contract), Amb er Oxygen saturation, [id number] 10:49:59 Test Item Value Reference Range Interpretation Comments O2 Saturation (Measured) (test code = 79.8 % 84793-4) [facility], yenxbqyw6271-04-18 10:49:59 Test Item Value Reference Range Interpretation Comments O2 Saturation (Measured) (test code = 79.8 % 39599-0) [facility], [id number] 10:49:59 Test Item Value Reference Range Interpretation Comments O2 Saturation (Measured) (test code = 79.8 % 14540-7) [facility], [id number] 10:49:59 Test Item Value Reference Range Interpretation Comments O2 Saturation (Measured) (test code = 79.8 % 15454-0) [facility], [id number] 10:49:59 Test Item Value Reference Range Interpretation Comments O2 Saturation (Measured) (test code = 79.8 % 07937-9) [facility], [id number] 10:49:59 Test Item Value Reference Range Interpretation Comments O2 Saturation (Measured) (test code = 79.8 % 68393-8) [facility], [id number] 10:49:59 Test Item Value Reference Range Interpretation Comments O2 Saturation (Measured) (test code = 79.8 % 25765-8) [facility], zhgrousp7713-26-10 10:49:59 Test Item Value Reference Range Interpretation Comments O2 Saturation (Measured) (test code = 79.8 % 00227-3) [facility], [id number] 10:49:59 Test Item Value Reference Range Interpretation Comments O2 Saturation (Measured) (test code = 79.8 % 11176-4) [facility], zjjgyvjh9828-06-15 10:49:59 Test Item Value Reference Range Interpretation Comments O2 Saturation (Measured) (test code = 79.8 % 86349-0) [facility], dnmnydxl5699-16-04 10:49:59 Test Item Value Reference Range Interpretation Comments O2 Saturation (Measured) (test code = 79.8 % 36207-4) [facility], [id number] 10:49:59 Test Item Value Reference Range Interpretation Comments O2 Saturation (Measured) (test code = 79.8 % 97704-1) [facility], kahfpuqk3582-67-26 10:49:59 Test Item Value Reference Range Interpretation Comments O2 Saturation (Measured) (test code = 79.8 % 75709-9) [facility] CenterOXYGEN SATURATION, [id number] 10:49:59 Test Item Value Reference Range Interpretation Comments O2 SATURATION (MEASURED) (BEAKER) 79.8 % (test code = 1455) BASIC METABOLIC [id number] 07:15:45 Test Item Value Reference Range Interpretation [...] S NOT APPLICABLE FOR DIALYSIS PATIEN TS. Hand I Thermal Cutter ID - DBRAD, CHEST, 1 VIEW, NON [id number] 03:19:00Reason for exam:->post-opShould this be performed at the bedside?->Yes [facility] : 1955 Sex: FFINAL REPORT CLINICAL INDICATION: post-op Comparison: 06/21/2021 The cardiomediastinal contours are stable. The lung volumes remain low. Central pulmonary vascular congestion and bilateral parenchymal opacities are unchanged. There is no pneumothorax. Support lines are stable. Signed:Braxton Quintero MDReport Verified Date/Time: 06/22/2021 03:19:08 BASIC METABOLIC [id number] 02:00:09 Test Item Value Reference Range Interpretation [...] S NOT APPLICABLE FOR DIALYSIS PATIEN TS. Hand I Thermal Cutter ID - [id number] 01:57:06 Test Item Value Reference Range Interpretation Comments MAGNESIUM (BEAKER) 2.5 mg/dL 1.6-2.6 Specimen slightly (test code = 627) hemolyzed Hand I Thermal Cutter ID - [id number] 01:57:06 Test Item Value Reference Range Interpretation Comments PHOSPHORUS (BEAKER) 5.0 mg/dL 2.3-4.7 H Specimen slightly (test code = 604) hemolyzed Hand I Thermal Cutter ID - [id number] 01:54:46 Test Item Value Reference Range Interpretation Comments PARTIAL THROMBOPLASTIN TIME 37.8 seconds 22.5-36.0 H (BEAKER) (test code = 760) PROTHROMBIN TIME/[id number] 01:53:47 Test Item Value Reference Range Interpretation Comments PROTIME (BEAKER) 16.4 seconds 11.9-14.2 H (test code = 759) INR (BEAKER) (test 1.34 See_Comment [Automat ed message] code = 370) The system [employer] generated this result transmitted ref erence range: [...] WBC 0-0 (test code = 413) POCT-GLUCOSE [id number] 21:22:08 Test Item Value Reference Range Interpretation Comments POC-GLUCOSE METER 73 mg/dL 70-110 : TESTED A T [facility] 6720 (BEAKER) (test code = [facility], 1538) 997[address]: Hand I Thermal Cutter/Techni kelle ID = [id number] for Rodríguez Rojas POCT-GLUCOSE [id number] 19:10:01 Test Item Value Reference Range Interpretation Comments POC-GLUCOSE METER 83 mg/dL 70-110 : TESTED A T [facility] 6720 (BEAKER) (test code = [facility], 1538) 42167: Hand I Thermal Cutter/Techni kelle ID = [id number] for HATTIE SALAZAR BASIC METABOLIC [id number] 14:08:36 Test Item Value Reference Range Interpretation [...] S NOT APPLICABLE FOR DIALYSIS PATIEN TS. Hand I Thermal Cutter ID - DBPOCT-GLUCOSE [id number] 13:42:11 Test Item Value Reference Range Interpretation Comments POC-GLUCOSE METER 72 mg/dL 70-110 : TESTED A T [facility] 6720 (BEAKER) (test code = [place], 1538) 079[address]: Hand I Thermal Cutter/Techni kelle ID = [id number] for Sun(contract )Katt Surgically obtained culture + gram [id number] 11:46:53 Test Item Value Reference Range Interpretation Comments Result (test code = 6463-4) No growth Gram Stain Result (test No organisms seen code = 1123) [facility] [id number] 11:46:53 Test Item Value Reference Range Interpretation Comments Result (test code = 6463-4) No growth Gram Stain Result (test No organisms seen code = 1123) [facility] + gram [id number] 11:46:53 Test Item Value Reference Range Interpretation Comments Result (test code = 6463-4) No growth Gram Stain Result (test No organisms seen code = 1123) [facility] + gram [id number] 11:46:53 Test Item Value Reference Range Interpretation Comments Result (test code = 6463-4) No growth Gram Stain Result (test No organisms seen code = 1123) [facility] + gram [id number] 11:46:53 Test Item Value Reference Range Interpretation Comments Result (test code = 6463-4) No growth Gram Stain Result (test No organisms seen code = 1123) [facility] + gram [id number] 11:46:53 Test Item Value Reference Range Interpretation Comments Result (test code = 6463-4) No growth Gram Stain Result (test No organisms seen code = 1123) [facility] + gram [id number] 11:46:53 Test Item Value Reference Range Interpretation Comments Result (test code = 6463-4) No growth Gram Stain Result (test No organisms seen code = 1123) [facility] + gram jjiwx2354-02-04 11:46:53 Test Item Value Reference Range Interpretation Comments Result (test code = 6463-4) No growth Gram Stain Result (test No organisms seen code = 1123) [facility] + gram [id number] 11:46:53 Test Item Value Reference Range Interpretation Comments Result (test code = 6463-4) No growth Gram Stain Result (test No organisms seen code = 1123) [facility] + gram [id number] 11:46:53 Test Item Value Reference Range Interpretation Comments Result (test code = 6463-4) No growth Gram Stain Result (test No organisms seen code = 1123) [facility] + gram [id number] 11:46:53 Test Item Value Reference Range Interpretation Comments Result (test code = 6463-4) No growth Gram Stain Result (test No organisms seen code = 1123) [facility] + gram [id number] 11:46:53 Test Item Value Reference Range Interpretation Comments Result (test code = 6463-4) No growth Gram Stain Result (test No organisms seen code = 1123) [facility] + gram [id number] 11:46:53 Test Item Value Reference Range Interpretation Comments Result (test code = 6463-4) No growth Gram Stain Result (test No organisms seen code = 1123) [facility] + GRAM [id number] 11:46:53 Test Item Value Reference Range Interpretation Comments CULTURE (BEAKER) (test code No growth = 1095) GRAM STAIN RESULT (BEAKER) 1+ WBCs (test code = 1123) GRAM STAIN RESULT (BEAKER) No organisms seen (test code = 03369) RAD, CHEST, 1 VIEW, NON [id number] 06:05:00Reason for exam:->post-opShould this be performed at the bedside?->Yes [facility] : 1955 Sex: [...] MDReport Verified Date/Time: 06/21/2021 06:05:24 BASIC METABOLIC [id number] 03:54:19 Test Item Value Reference Range Interpretation [...] S NOT APPLICABLE FOR DIALYSIS PATIEN TS. Hand I Thermal Cutter ID - [id number] 03:49:06 Test Item Value Reference Range Interpretation Comments PHOSPHORUS (BEAKER) (test code = 4.5 mg/dL 2.3-4.7 604) Hand I Thermal Cutter ID - [id number] 03:49:05 Test Item Value Reference Range Interpretation Comments MAGNESIUM (BEAKER) (test code = 2.4 mg/dL 1.6-2.6 627) Hand I Thermal Cutter ID - DBCBC (HEMOGRAM ONLY)2021-06-21 03:45:10 Test [...] /100 WBC 0-0 (test code = 413) [id number] 03:45:00 Test Item Value Reference Range Interpretation Comments PARTIAL THROMBOPLASTIN TIME 35.5 seconds 22.5-36.0 (BEAKER) (test code = 760) PROTHROMBIN TIME/[id number] 03:44:22 Test Item Value Reference Range Interpretation Comments PROTIME (BEAKER) 14.1 seconds 11.9-14.2 (test code = 759) INR (BEAKER) (test 1.11 See_Comment [Automat ed message] code = 370) The system [employer] generated this result transmitted ref erence range: <=5.90. The reference range was not used to int erpret this result as normal/abnormal . RECOMMENDED COUMADIN/WARFARIN INR THERAPY RANGESSTANDARD DOSE: 2.0 - 3.0 Includes: PROPHYLAXIS for venous thrombosis, systemic embolization; TREATMENT for venous thrombosis and/or pulmonary embolus.HIGH RISK: Target INR is 2.5-3.5 for patients with mechanical heart valves.BASIC METABOLIC [id number] 18:24:15 Test Item Value Reference Range Interpretation [...] S NOT APPLICABLE FOR DIALYSIS PATIEN TS. Hand I Thermal Cutter ID - PIAYA LPOCT-GLUCOSE [id number] 13:44:48 Test Item Value Reference Range Interpretation Comments POC-GLUCOSE METER 165 mg/dL 70-110 H : [facility] ([facility] (test code = [place], 1538) 80[address]: Hand I Thermal Cutter/Techni kelle ID = [id number] for KOTA ARIAS SARS-CoV2/RT-PCR (Asymptomatic ONLY)2021-06-20 11:58:08 Test Item Value Reference Range Interpretation Comments SARS-COV2/RT-PCR Negative Not Detected, (test code = Negative, See 60074-2) external report for linked test SARS-COV-2 [facility] PERFORM[facility] (test code = 19656-0) BRANDI (test code = Negative result for [...] of the Act. Fact Sheet for Healthcare Providers:https://www.Organizer idel.[employer] [place]/sites/default/f radha/product/documents/F act_Sheet_HC_Providers_L wla_JRXB-RbH-9.pdf Fact Sheet for Healthcare Patients:https://www.ankur del.com/sites/default/fi les/product/documents/Fa ct_Sheet_Patients_Lyra_S ARS-CoV-2.pdf Performing Laboratory:[facility], [place] [address] [place], [place] [address]ARS-CoV2/RT-PCR (Asymptomatic ONLY)2021-06-20 11:58:08 Test Item Value Reference Range Interpretation Comments SARS-COV2/RT-PCR Negative Not Detected, (test code = Negative, See 74469-8) external report for linked test SARS-COV-2 [facility] PERFORMING LAB (test code = 88520-9) BRANDI (test code = Negative result for [...] of the Act. Fact Sheet for Healthcare Providers:https://www.Organizer ideProxsys.[employer] [place]/sites/default/f radha/product/documents/F act_Sheet_HC_Providers_L kmz_MALQ-BjW-6.pdf Fact Sheet for Healthcare Patients:https://www.VR1 del.[employer] [place]/sites/default/fi les/product/documents/Fa ct_Sheet_Patients_Lyra_S ARS-CoV-2.pdf Performing Laboratory:[facility] [place] [address] [facility] ([facility])2021-06-20 11:58:08 Test Item Value Reference Range Interpretation Comments SARS-COV2/RT-PCR (test Negative Not Detected, Negative, code = 8122198) See external report for linked test SARS-COV-2 PERFORMING LAB [facility] (test code = 4209618) Negative result for this test determines that [...] of the Act.Fact Sheet for Healthcare Prov iders:https://www.MiNOWireless.[employer] [place]/sites/default/files/product/documents/Fact_Sheet_HC _Rrcoulmic_Ijyl_PDAQ-MaF-9.pdfFact Sheet for Healthcare Patients:https://www.Visto/sites/default/files/product/docume nts/Umjw_Kylqd_Huvsnmfy_Einy_XPAJ-HaG-9.pdfPerforming Laboratory:[facility], [place] [address]LAXZ-HJXAUOM METER 2021-06-20 06:30:37 Test Item Value Reference Range Interpretation Comments POC-GLUCOSE METER 145 mg/dL 70-110 H : TESTED A T [facility] 6720 (BEAKER) (test code [facility], = 1538) 16434: Hand I Thermal Cutter/Techni kelle ID = [id number] for Tash wiseman (contract), Haz RAD, CHEST, 1 VIEW, NON [id number] 06:25:00Reason for exam:->post-opShould this be performed at the bedside?->Yes [facility] : 1955 Sex: FFINAL REPORT RAD, CHEST, 1 VIEW, NON DEPT INDICATION: post-op COMPARISON: Prior day's exam FINDINGS: Portable frontal view of the chest. IMPRESSION: Support Lines: Interval extubation. A drainage catheter overlies the upper abdomen and lower hemidiaphragm in the center. [place]-Blayne tipoverlies the pulmonary outflow tract. Pacer device and sternotomy wires are unchanged. Lungs and pleura: Bilateral effusions and adjacent compressive atelectasis are unchanged No significant pneumothorax. Heart and mediastinum: Normal contours. Additional findings: None. Signed: Bayron Cosmeort Verified Date/Time: 06/20/2021 06:25:51 Electronically signed by: BAYRON COSME MD on 0 06/20/2021 06:25 [id number] 02:12:20 Test Item Value Reference Range Interpretation Comments PARTIAL THROMBOPLASTIN TIME 35.8 seconds 22.5-36.0 (BEAKER) (test code = 760) PROTHROMBIN TIME/[id number] 02:11:37 Test Item Value Reference Range Interpretation Comments PROTIME (BEAKER) 15.4 seconds 11.9-14.2 H (test code = 759) INR (BEAKER) (test 1.24 See_Comment [Automat ed message] code = 370) The system [employer] generated this result transmitted ref erence range: <=5.90. The reference range was not used to int erpret this result as normal/abnormal . RECOMMENDED COUMADIN/WARFARIN INR THERAPY RANGESSTANDARD DOSE: 2.0 - 3.0 Includes: PROPHYLAXIS for venous thrombosis, systemic embolization; TREATMENT for venous thrombosis and/or pulmonary embolus.HIGH RISK: Target INR is 2.5-3.5 for patients with mechanical heart valves.BASIC METABOLIC [id number] 02:08:36 Test Item Value Reference Range Interpretation [...] S NOT APPLICABLE FOR DIALYSIS PATIEN TS. Hand I Thermal Cutter ID - [id number] 01:57:56 Test Item Value Reference Range Interpretation Comments PHOSPHORUS (BEAKER) (test code = 4.1 mg/dL 2.3-4.7 604) Hand I Thermal Cutter ID - [id number] 01:57:55 Test Item Value Reference Range Interpretation Comments MAGNESIUM (BEAKER) (test code = 2.2 mg/dL 1.6-2.6 627) Hand I Thermal Cutter ID - DBCBC (HEMOGRAM ONLY)2021-06-20 01:36:09 Test [...] 0-0 (test code = 413) Blood gas, [id number] 01:27:29 Test Item Value Reference Range Interpretation [...] 28 Lab Interpretation Abnormal (test code = 37832-8) [facility] ascdjoab4667-00-28 01:27:29 Test Item Value Reference Range Interpretation [...] 28 Lab Interpretation Abnormal (test code = 97629-6) [facility], [id number] 01:27:29 Test Item Value Reference Range Interpretation [...] 28 Lab Interpretation Abnormal (test code = 58664-4) [facility], [id number] 01:27:29 Test Item Value Reference Range Interpretation [...] 28 Lab Interpretation Abnormal (test code = 35522-1) [facility], syvrftxg0400-18-19 01:27:29 Test Item Value Reference Range Interpretation [...] 28 Lab Interpretation Abnormal (test code = 69743-0) [facility], [id number] 01:27:29 Test Item Value Reference Range Interpretation Comments pH, Arterial (test code 7.41 7.35-7.45 = 2744-1) pCO2, Arterial (test 36 See_Comment [Autom ated code = 2019) message] The system which generated this result [...] 28 Lab Interpretation Abnormal (test code = 88152-2) [facility], [id number] 01:27:29 Test Item Value Reference Range Interpretation [...] 28 Lab Interpretation Abnormal (test code = 63382-5) [facility], [id number] 01:27:29 Test Item Value Reference Range Interpretation [...] 28 Lab Interpretation Abnormal (test code = 22047-7) [facility] gas, [id number] 01:27:29 Test Item Value Reference Range Interpretation [...] 28 Lab Interpretation Abnormal (test code = 41510-7) [facility] gas, yykdiqda7607-87-05 01:27:29 Test Item Value Reference Range Interpretation [...] 28 Lab Interpretation Abnormal (test code = 38414-7) [facility], [id number] 01:27:29 Test Item Value Reference Range Interpretation [...] 28 Lab Interpretation Abnormal (test code = 09573-6) [facility], addxmnsp7947-44-65 01:27:29 Test Item Value Reference Range Interpretation [...] 28 Lab Interpretation Abnormal (test code = 41883-1) [facility], [id number] 01:27:29 Test Item Value Reference Range Interpretation [...] 28 Lab Interpretation Abnormal (test code = 89580-2) [facility], [id number] 01:27:29 Test Item Value Reference Range Interpretation [...] (BEAKER) (test code = 1819) 28.0 Calcium, [id number] 01:26:07 Test Item Value Reference Range Interpretation Comments Calcium, Ion (test code = 1993-06) 1.17 mmol/L 1.12-1.27 pH, Blood (test code = 50577-7) 7.39 [facility] CenterCal[facility], [id number] 01:26:07 Test Item Value Reference Range Interpretation Comments Calcium, Ion (test code = 1993-06) 1.17 mmol/L 1.12-1.27 pH, Blood (test code = 65166-3) 7.39 [facility] Center[facility], [id number] 01:26:07 Test Item Value Reference Range Interpretation Comments Calcium, Ion (test code = 1993-06) 1.17 mmol/L 1.12-1.27 pH, Blood (test code = 67391-8) 7.39 [facility] Center[facility], [id number] 01:26:07 Test Item Value Reference Range Interpretation Comments Calcium, Ion (test code = 1993-06) 1.17 mmol/L 1.12-1.27 pH, Blood (test code = 99200-5) 7.39 [facility], [id number] 01:26:07 Test Item Value Reference Range Interpretation Comments Calcium, Ion (test code = 1993-06) 1.17 mmol/L 1.12-1.27 pH, Blood (test code = 28539-9) 7.39 [facility], [id number] 01:26:07 Test Item Value Reference Range Interpretation Comments Calcium, Ion (test code = 1993-06) 1.17 mmol/L 1.12-1.27 pH, Blood (test code = 24256-3) 7.39 [facility], [id number] 01:26:07 Test Item Value Reference Range Interpretation Comments Calcium, Ion (test code = 1993-06) 1.17 mmol/L 1.12-1.27 pH, Blood (test code = 83252-3) 7.39 [facility], [id number] 01:26:07 Test Item Value Reference Range Interpretation Comments Calcium, Ion (test code = 1993-06) 1.17 mmol/L 1.12-1.27 pH, Blood (test code = 39113-5) 7.39 [facility], [id number] 01:26:07 Test Item Value Reference Range Interpretation Comments Calcium, Ion (test code = 1993-06) 1.17 mmol/L 1.12-1.27 pH, Blood (test code = 86679-9) 7.39 [facility], [id number] 01:26:07 Test Item Value Reference Range Interpretation Comments Calcium, Ion (test code = 1993-06) 1.17 mmol/L 1.12-1.27 pH, Blood (test code = 41620-4) 7.39 [facility], [id number] 01:26:07 Test Item Value Reference Range Interpretation Comments Calcium, Ion (test code = 1993-06) 1.17 mmol/L 1.12-1.27 pH, Blood (test code = 16788-6) 7.39 [facility], [id number] 01:26:07 Test Item Value Reference Range Interpretation Comments Calcium, Ion (test code = 1993-06) 1.17 mmol/L 1.12-1.27 pH, Blood (test code = 72818-3) 7.39 [facility], [id number] 01:26:07 Test Item Value Reference Range Interpretation Comments Calcium, Ion (test code = 1993-06) 1.17 mmol/L 1.12-1.27 pH, Blood (test code = 90676-3) 7.39 [place] [facility], [id number] 01:26:07 Test Item Value Reference Range Interpretation Comments CALCIUM IONIZED (BEAKER) (test 1.17 mmol/L 1.12-1.27 code = 698) PH, BLOOD (BEAKER) (test code = 7.39 1810) Prepare [id number] 23:55:00 Test Item Value Reference Range Interpretation Comments Unit ABO (test code = 4698615) A Pos UNIT NUMBER (test code = [id number] 934-0) Status (test code = 6575181) [place]_TIMEINCHART Blood Bank Product (test code PLATELETS = 2263) PRODUCT CODE (test code = B0558V35 933-2) [facility] [facility] [id number] 23:55:00 Test Item Value Reference Range Interpretation Comments Unit ABO (test code = 3906931) A Pos UNIT NUMBER (test code = [id number] 934-0) Status (test code = 8800567) TX_TIMEINCHART Blood Bank Product (test code PLATELETS = 2263) PRODUCT CODE (test code = Y5890B33 933-2) [facility] [id number] 23:55:00 Test Item Value Reference Range Interpretation Comments Unit ABO (test code = 9194365) A Pos UNIT NUMBER (test code = [id number] 934-0) Status (test code = 9940866) TX_TIMEINCHART Blood Bank Product (test code PLATELETS = 2263) PRODUCT CODE (test code = Y1716N57 933-2) [facility] [id number] 23:55:00 Test Item Value Reference Range Interpretation Comments Unit ABO (test code = 9763833) A Pos UNIT NUMBER (test code = [id number] 934-0) Status (test code = 4623487) TX_TIMEINCHART Blood Bank Product (test code PLATELETS = 2263) PRODUCT CODE (test code = W0899B20 933-2) [facility] [id number] 23:55:00 Test Item Value Reference Range Interpretation Comments Unit ABO (test code = 8895123) A Pos UNIT NUMBER (test code = [id number] 934-0) Status (test code = 3548922) TX_TIMEINCHART Blood Bank Product (test code PLATELETS = 2263) PRODUCT CODE (test code = L7140M28 933-2) [facility] [id number] 23:55:00 Test Item Value Reference Range Interpretation Comments Unit ABO (test code = 0840467) A Pos UNIT NUMBER (test code = [id number] 934-0) Status (test code = 2752340) TX_TIMEINCHART Blood Bank Product (test code PLATELETS = 2263) PRODUCT CODE (test code = Q4544H86 933-2) [facility] [id number] 23:55:00 Test Item Value Reference Range Interpretation Comments Unit ABO (test code = 8456415) A Pos UNIT NUMBER (test code = [id number] 934-0) Status (test code = 8709643) TX_TIMEINCHART Blood Bank Product (test code PLATELETS = 2263) PRODUCT CODE (test code = L4048J37 933-2) [facility] [id number] 23:55:00 Test Item Value Reference Range Interpretation Comments Unit ABO (test code = 0183963) A Pos UNIT NUMBER (test code = [id number] 934-0) Status (test code = 1318123) TX_TIMEINCHART Blood Bank Product (test code PLATELETS = 2263) PRODUCT CODE (test code = A2918M76 933-2) [facility] [id number] 23:55:00 Test Item Value Reference Range Interpretation Comments Unit ABO (test code = 3703393) A Pos UNIT NUMBER (test code = [id number] 934-0) Status (test code = 2368279) TX_TIMEINCHART Blood Bank Product (test code PLATELETS = 2263) PRODUCT CODE (test code = A7690G17 933-2) [facility] [id number] 23:55:00 Test Item Value Reference Range Interpretation Comments Unit ABO (test code = 3297124) A Pos UNIT NUMBER (test code = [id number] 934-0) Status (test code = 4151309) TX_TIMEINCHART Blood Bank Product (test code PLATELETS = 2263) PRODUCT CODE (test code = K3617T22 933-2) [facility] [id number] 23:55:00 Test Item Value Reference Range Interpretation Comments Unit ABO (test code = 3177293) A Pos UNIT NUMBER (test code = [id number] 934-0) Status (test code = 6662783) TX_TIMEINCHART Blood Bank Product (test code PLATELETS = 2263) PRODUCT CODE (test code = V6352F20 933-2) [facility] [id number] 23:55:00 Test Item Value Reference Range Interpretation Comments Unit ABO (test code = 0740183) A Pos UNIT NUMBER (test code = [id number] 934-0) Status (test code = 9454905) TX_TIMEINCHART Blood Bank Product (test code PLATELETS = 2263) PRODUCT CODE (test code = S7211U58 933-2) [facility] [id number] 23:55:00 Test Item Value Reference Range Interpretation Comments Unit ABO (test code = 2792770) A Pos UNIT NUMBER (test code = [id number] 934-0) Status (test code = 4159719) TX_TIMEINCHART Blood Bank Product (test code PLATELETS = 2263) PRODUCT CODE (test code = S9393Z86 933-2) [facility] [id number] 23:54:00 Test Item Value Reference Range Interpretation Comments CROSSMATCH (test code = COMPATIBLE 2264) Unit ABO (test code = O Pos 6616990) UNIT NUMBER (test code = [id number] 934-0) Status (test code = RETURNED FROM ISSUE 5867456) Blood Bank Product (test RED BLOOD CELLS code = 2263) PRODUCT CODE (test code = M7926Z36 933-2) [facility] [id number] 23:54:00 Test Item Value Reference Range Interpretation Comments CROSSMATCH (test code = COMPATIBLE 2264) Unit ABO (test code = O Pos 5348406) UNIT NUMBER (test code = [id number] 934-0) Status (test code = RETURNED FROM ISSUE 1734469) Blood Bank Product (test RED BLOOD CELLS code = 2263) PRODUCT CODE (test code = Z5172B86 933-2) [facility] [id number] 23:54:00 Test Item Value Reference Range Interpretation Comments CROSSMATCH (test code = COMPATIBLE 2264) Unit ABO (test code = O Pos 1729036) UNIT NUMBER (test code = [id number] 934-0) Status (test code = RETURNED FROM ISSUE 15100613) Blood Bank Product (test RED BLOOD CELLS code = 2263) PRODUCT CODE (test code = F3686Z29 933-2) [facility] [id number] 23:54:00 Test Item Value Reference Range Interpretation Comments CROSSMATCH (test code = COMPATIBLE 2264) Unit ABO (test code = O Pos 2258360) UNIT NUMBER (test code = [id number] 934-0) Status (test code = RETURNED FROM ISSUE 15100613) Blood Bank Product (test RED BLOOD CELLS code = 2263) PRODUCT CODE (test code = M7441Q42 933-2) [facility] [id number] 23:54:00 Test Item Value Reference Range Interpretation Comments CROSSMATCH (test code = COMPATIBLE 2264) Unit ABO (test code = O Pos 8523887) UNIT NUMBER (test code = [id number] 934-0) Status (test code = RETURNED FROM ISSUE 15100613) Blood Bank Product (test RED BLOOD CELLS code = 2263) PRODUCT CODE (test code = U1460S35 933-2) [facility] [id number] 23:54:00 Test Item Value Reference Range Interpretation Comments CROSSMATCH (test code = COMPATIBLE 2264) Unit ABO (test code = O Pos 2721726) UNIT NUMBER (test code = [id number] 934-0) Status (test code = RETURNED FROM ISSUE 15100613) Blood Bank Product (test RED BLOOD CELLS code = 2263) PRODUCT CODE (test code = H1560A29 933-2) [facility] [id number] 23:54:00 Test Item Value Reference Range Interpretation Comments CROSSMATCH (test code = COMPATIBLE 2264) Unit ABO (test code = O Pos 2018592) UNIT NUMBER (test code = [id number] 934-0) Status (test code = RETURNED FROM ISSUE 15100613) Blood Bank Product (test RED BLOOD CELLS code = 2263) PRODUCT CODE (test code = X8913F20 933-2) [facility] [id number] 23:54:00 Test Item Value Reference Range Interpretation Comments CROSSMATCH (test code = COMPATIBLE 2264) Unit ABO (test code = O Pos 7232853) UNIT NUMBER (test code = [id number] 934-0) Status (test code = RETURNED FROM ISSUE 15100613) Blood Bank Product (test RED BLOOD CELLS code = 2263) PRODUCT CODE (test code = V2528T81 933-2) [facility] [id number] 23:54:00 Test Item Value Reference Range Interpretation Comments CROSSMATCH (test code = COMPATIBLE 2264) Unit ABO (test code = O Pos 4693886) UNIT NUMBER (test code = [id number] 934-0) Status (test code = RETURNED FROM ISSUE 15100613) Blood Bank Product (test RED BLOOD CELLS code = 2263) PRODUCT CODE (test code = J6156F35 933-2) [facility] [id number] 23:54:00 Test Item Value Reference Range Interpretation Comments CROSSMATCH (test code = COMPATIBLE 2264) Unit ABO (test code = O Pos 3607093) UNIT NUMBER (test code = [id number] 934-0) Status (test code = RETURNED FROM ISSUE 15100613) Blood Bank Product (test RED BLOOD CELLS code = 2263) PRODUCT CODE (test code = R2842B08 933-2) [facility] [id number] 23:54:00 Test Item Value Reference Range Interpretation Comments CROSSMATCH (test code = COMPATIBLE 2264) Unit ABO (test code = O Pos 3160055) UNIT NUMBER (test code = [id number] 934-0) Status (test code = RETURNED FROM ISSUE 15100613) Blood Bank Product (test RED BLOOD CELLS code = 2263) PRODUCT CODE (test code = C1644P42 933-2) [facility] [id number] 23:54:00 Test Item Value Reference Range Interpretation Comments CROSSMATCH (test code = COMPATIBLE 2264) Unit ABO (test code = O Pos 9165672) UNIT NUMBER (test code = [id number] 934-0) Status (test code = RETURNED FROM ISSUE 15100613) Blood Bank Product (test RED BLOOD CELLS code = 2263) PRODUCT CODE (test code = K8950U44 933-2) [id number] 23:54:00 Test Item Value Reference Range Interpretation Comments CROSSMATCH (test code = COMPATIBLE 4) Unit ABO (test code = O Pos 5975664) UNIT NUMBER (test code = A709506910636 934-0) Status (test code = RETURNED FROM ISSUE 15100613) Blood Bank Product (test RED BLOOD CELLS code = 2263) PRODUCT CODE (test code = H0337T93 933-2) [facility] [id number] 22:04:29 Test Item Value Reference Range Interpretation [...] S NOT APPLICABLE FOR DIALYSIS PATIEN TS. Hand I Thermal Cutter ID - [id number] 22:03:41 Test Item Value Reference Range Interpretation Comments PHOSPHORUS (BEAKER) (test code = 4.3 mg/dL 2.3-4.7 604) Hand I Thermal Cutter ID - [id number] 22:03:40 Test Item Value Reference Range Interpretation Comments MAGNESIUM (BEAKER) (test code = 2.2 mg/dL 1.6-2.6 627) Hand I Thermal Cutter ID - DBpH, [id number] 21:40:14 Test Item Value Reference Range Interpretation Comments pH, Arterial (test code = 2744-1) 7.37 7.35-7.45 Lab Interpretation (test code = Normal 28102-2) [facility]2022-03-18 21:40:14 Test Item Value Reference Range Interpretation Comments pH, Arterial (test code = 2744-1) 7.37 7.35-7.45 Lab Interpretation (test code = Normal 49991-0) [facility]2022-03-18 21:40:14 Test Item Value Reference Range Interpretation Comments pH, Arterial (test code = 2744-1) 7.37 7.35-7.45 Lab Interpretation (test code = Normal 10402-4) [facility]2022-03-18 21:40:14 Test Item Value Reference Range Interpretation Comments pH, Arterial (test code = 2744-1) 7.37 7.35-7.45 Lab Interpretation (test code = Normal 79627-9) [facility]2022-03-18 21:40:14 Test Item Value Reference Range Interpretation Comments pH, Arterial (test code = 2744-1) 7.37 7.35-7.45 Lab Interpretation (test code = Normal 51790-0) [facility]2022-03-18 21:40:14 Test Item Value Reference Range Interpretation Comments pH, Arterial (test code = 2744-1) 7.37 7.35-7.45 Lab Interpretation (test code = Normal 00608-5) [facility]2022-03-18 21:40:14 Test Item Value Reference Range Interpretation Comments pH, Arterial (test code = 2744-1) 7.37 7.35-7.45 Lab Interpretation (test code = Normal 80698-8) [facility]2022-03-18 21:40:14 Test Item Value Reference Range Interpretation Comments pH, Arterial (test code = 2744-1) 7.37 7.35-7.45 Lab Interpretation (test code = Normal 26994-7) [facility]2022-03-18 21:40:14 Test Item Value Reference Range Interpretation Comments pH, Arterial (test code = 2744-1) 7.37 7.35-7.45 Lab Interpretation (test code = Normal 38333-3) [facility], [id number] 21:40:14 Test Item Value Reference Range Interpretation Comments pH, Arterial (test code = 2744-1) 7.37 7.35-7.45 Lab Interpretation (test code = Normal 93860-0) [facility], [id number] 21:40:14 Test Item Value Reference Range Interpretation Comments pH, Arterial (test code = 2744-1) 7.37 7.35-7.45 Lab Interpretation (test code = Normal 25842-6) [facility] [id number] 21:40:14 Test Item Value Reference Range Interpretation Comments pH, Arterial (test code = 2744-1) 7.37 7.35-7.45 Lab Interpretation (test code = Normal 80629-9) [facility], [id number] 21:40:14 Test Item Value Reference Range Interpretation Comments pH, Arterial (test code = 2744-1) 7.37 7.35-7.45 Lab Interpretation (test code = Normal 53541-3) [facility] [id number] 21:40:14 Test Item Value Reference Range Interpretation Comments PH ARTERIAL (BEAKER) (test code = 383) 7.37 7.35-7.45 POCT-GLUCOSE [id number] 18:07:04 Test Item Value Reference Range Interpretation Comments POC-GLUCOSE METER 208 mg/dL 70-110 H : TESTED A T [facility] 6720 (BEAKER) (test code = [place], 1538) [address]: Hand I Thermal Cutter/Techni kelle ID = [id number] for Chilo Mccarty BLOOD GAS, [id number] 12:45:46 Test Item Value Reference Range Interpretation [...] (test code = 1819) 36.0 BLOOD GAS, [id number] 11:23:57 Test Item Value Reference Range Interpretation [...] FIO2 (BEAKER) (test code = 1819) 40.0 [id number] 09:37:11 Test Item Value Reference Range Interpretation Comments Scan Result (test code = See scanned report [id number]) BRANDI (test code = BRANDI) See scanned report [place] 24228022-03-18 09:37:11 Test Item Value Reference Range Interpretation Comments Scan Result (test code = See scanned report [id number]) BRANDI (test code = BRANDI) See scanned report [place] 24228022-03-18 09:37:11 Test Item Value Reference Range Interpretation Comments Scan Result (test code = See scanned report 9041900) BRANDI (test code = BRANDI) See scanned report [place] 24228022-03-18 09:37:11 Test Item Value Reference Range Interpretation Comments Scan Result (test code = See scanned report [id number]) BRANDI (test code = BRANDI) See scanned report [place] 24228022-03-18 09:37:11 Test Item Value Reference Range Interpretation Comments Scan Result (test code = See scanned report 4016435) BRANDI (test code = BRANDI) See scanned report [place] 24228022-03-18 09:37:11 Test Item Value Reference Range Interpretation Comments Scan Result (test code = See scanned report 9939599) BRANDI (test code = BRANDI) See scanned report [place] 24228022-03-18 09:37:11 Test Item Value Reference Range Interpretation Comments Scan Result (test code = See scanned report 5749230) BRANDI (test code = BRANDI) See scanned report [place] 24228022-03-18 09:37:11 Test Item Value Reference Range Interpretation Comments Scan Result (test code = See scanned report 1104619) BRANDI (test code = BRANDI) See scanned report [place] 24228022-03-18 09:37:11 Test Item Value Reference Range Interpretation Comments Scan Result (test code = See scanned report 9581226) BRANDI (test code = BRANDI) See scanned report [place] 24228022-03-18 09:37:11 Test Item Value Reference Range Interpretation Comments Scan Result (test code = See scanned report 4545897) BRANDI (test code = BRANDI) See scanned report [place] 24228022-03-18 09:37:11 Test Item Value Reference Range Interpretation Comments Scan Result (test code = See scanned report 9253151) BRANDI (test code = BRANDI) See scanned report [place] 24228022-03-18 09:37:11 Test Item Value Reference Range Interpretation Comments Scan Result (test code = See scanned report 2700020) BRANDI (test code = BRANDI) See scanned report [place] 24228022-03-18 09:37:11 Test Item Value Reference Range Interpretation Comments Scan Result (test code = See scanned report 0307463) BRANDI (test code = BRANDI) See scanned report [facility] [id number] 09:37:11 Test Item Value Reference Range Interpretation Comments SCAN RESULT (test code = See scanned report 2391578) See scanned reportPOCT-GLUCOSE [id number] 08:52:16 Test Item Value Reference Range Interpretation Comments POC-GLUCOSE METER 165 mg/dL 70-110 H : TESTED A T [facility] 6720 (BEAKER) (test code = YUD[place], 1538) 10191: Hand I Thermal Cutter/Techni kelle ID = [id number] for Chilo Mccarty RAD, CHEST, 1 VIEW, NON [id number] 04:10:00Reason for exam:->post-opShould this be performed at the bedside?->Yes [facility] 1955 Sex: FFINAL REPORT RAD, CHEST, 1 VIEW, NON DEPT INDICATION: post-op COMPARISON: Prior day's exam FINDINGS: Portable frontal view of the chest. IMPRESSION: Support Lines: Stable Lungs and pleura: Unchanged central venous congestion. No new consolidation or effusion. No pneumothorax. Heart and mediastinum: Stable contours. Additional findings: None. Signed: Andrew Cary [facility] Verified Date/Time: 06/19/2021 04:10:04 BASIC METABOLIC [id number] 03:27:20 Test Item Value Reference Range Interpretation [...] S NOT APPLICABLE FOR DIALYSIS PATIEN TS. Hand I Thermal Cutter ID - RAKAN [id number] 03:26:39 Test Item Value Reference Range Interpretation Comments MAGNESIUM (BEAKER) (test code = 2.4 mg/dL 1.6-2.6 627) Hand I Thermal Cutter ID Bassam [place] [id number] 03:26:39 Test Item Value Reference Range Interpretation Comments PHOSPHORUS (BEAKER) (test code = 4.8 mg/dL 2.3-4.7 H 604) Hand I Thermal Cutter NORAH BL[place] [id number] 03:02:29 Test Item Value Reference Range Interpretation Comments PARTIAL THROMBOPLASTIN TIME 35.4 seconds 22.5-36.0 (BEAKER) (test code = 760) PROTHROMBIN TIME/[id number] 03:01:50 Test Item Value Reference Range Interpretation Comments PROTIME (BEAKER) 16.0 seconds 11.9-14.2 H (test code = 759) INR (BEAKER) (test 1.31 See_Comment [Automat ed message] code = 370) The system [employer] generated this result transmitted ref erence range: [...] 0-0 (test code = 413) OXYGEN SATURATION, [id number] 02:28:43 Test Item Value Reference Range Interpretation Comments O2 SATURATION (MEASURED) (BEAKER) 79.3 % (test code = 1455) BLOOD GAS, [id number] 02:25:53 Test Item Value Reference Range Interpretation [...] (BEAKER) (test code = 1819) 40.0 POCT-GLUCOSE [id number] 00:06:42 Test Item Value Reference Range Interpretation Comments POC-GLUCOSE METER 88 mg/dL 70-110 : TESTED A T [facility] 6720 (BEAKER) (test code = [facility], [facility]8) 08100: Hand I Thermal Cutter/Techni kelle ID = [id number] for JUGU ILON (V), ERICK POCT-GLUCOSE [id number] 23:14:53 Test Item Value Reference Range Interpretation Comments POC-GLUCOSE METER 91 mg/dL 70-110 : TESTED A T [facility] 6720 (BEAKER) (test code = [facility], [facility]8) 06440: Hand I Thermal Cutter/Techni kelle ID = [id number] for JUGU ILON (V), ERICK POCT-GLUCOSE [id number] 21:30:27 Test Item Value Reference Range Interpretation Comments POC-GLUCOSE METER 128 mg/dL 70-110 H : TESTED A T [facility] 6720 (BEAKER) (test code = [facility], [facility]8) 06919: Hand I Thermal Cutter/Techni kelle ID = [id number] for JU GUILON (V), ERICK POCT-GLUCOSE [id number] 19:05:18 Test Item Value Reference Range Interpretation Comments POC-GLUCOSE METER 165 mg/dL 70-110 H : TESTED A T [facility] 6720 (BEAKER) (test code = [facility], [facility]8) 07946: Hand I Thermal Cutter/Techni kelle ID = [id number] for DEIDRE BURRELL, JESMI BASIC METABOLIC [id number] 18:47:16 Test Item Value Reference Range Interpretation [...] S NOT APPLICABLE FOR DIALYSIS PATIEN TS. Hand I Thermal Cutter ID - HIEN [id number] 18:44:55 Test Item Value Reference Range Interpretation Comments MAGNESIUM (BEAKER) (test code = 2.5 mg/dL 1.6-2.6 627) Hand I Thermal Cutter ID - HIEN [id number] 18:44:55 Test Item Value Reference Range Interpretation Comments PHOSPHORUS (BEAKER) (test code = 4.7 mg/dL 2.3-4.7 604) Hand I Thermal Cutter ID - HIEN MBLOOD GAS, [id number] 18:43:01 Test Item Value Reference Range Interpretation [...] (test code = 1819) 60.0 OXYGEN SATURATION, [id number] 18:40:36 Test Item Value Reference Range Interpretation Comments O2 SATURATION (MEASURED) (BEAKER) 90.5 % (test code = 1455) Lactic Acid, [id number] 18:40:35 Test Item Value Reference Range Interpretation Comments Lactate, Art (test code = 2.1 mmol/L 0.5-2.2 2874) BRANDI (test code = BRANDI) Hand I Thermal Cutter ID - HIEN Hernandes Lab Interpretation (test Normal code = 21378-4) [facility] [id number] 18:40:35 Test Item Value Reference Range Interpretation Comments Lactate, Art (test code = 2.1 mmol/L 0.5-2.2 2874) BRANDI (test code = BRANDI) Hand I Thermal Cutter ID - HIEN M Lab Interpretation (test Normal code = 22845-2) [facility], [id number] 18:40:35 Test Item Value Reference Range Interpretation Comments Lactate, Art (test code = 2.1 mmol/L 0.5-2.2 2874) BRANDI (test code = BRANDI) Hand I Thermal Cutter ID - HIEN M Lab Interpretation (test Normal code = 28798-3) [facility], [id number] 18:40:35 Test Item Value Reference Range Interpretation Comments Lactate, Art (test code = 2.1 mmol/L 0.5-2.2 2874) BRANDI (test code = BRANDI) Hand I Thermal Cutter ID - HIEN Lab Interpretation (test Normal code = 50888-7) [facility] [id number] 18:40:35 Test Item Value Reference Range Interpretation Comments Lactate, Art (test code = 2.1 mmol/L 0.5-2.2 2874) BRANDI (test code = BRANDI) Hand I Thermal Cutter ID - HIEN Lab Interpretation (test Normal code = 59778-8) [facility], [id number] 18:40:35 Test Item Value Reference Range Interpretation Comments Lactate, Art (test code = 2.1 mmol/L 0.5-2.2 2874) BRANDI (test code = BRANDI) Hand I Thermal Cutter ID - HIEN Lab Interpretation (test Normal code = 27998-7) [facility], [id number] 18:40:35 Test Item Value Reference Range Interpretation Comments Lactate, Art (test code = 2.1 mmol/L 0.5-2.2 2874) BRANDI (test code = BRANDI) Hand I Thermal Cutter ID - HIEN M Lab Interpretation (test Normal code = 99333-9) [facility], [id number] 18:40:35 Test Item Value Reference Range Interpretation Comments Lactate, Art (test code = 2.1 mmol/L 0.5-2.2 2874) BRANDI (test code = BRANDI) Hand I Thermal Cutter ID - HIEN M Lab Interpretation (test Normal code = 48416-2) [facility], [id number] 18:40:35 Test Item Value Reference Range Interpretation Comments Lactate, Art (test code = 2.1 mmol/L 0.5-2.2 2874) BRANDI (test code = BRANDI) Hand I Thermal Cutter ID - HIEN M Lab Interpretation (test Normal code = 00588-9) [facility], [id number] 18:40:35 Test Item Value Reference Range Interpretation Comments Lactate, Art (test code = 2.1 mmol/L 0.5-2.2 2874) BRANDI (test code = BRANDI) Hand I Thermal Cutter ID - HIEN M Lab Interpretation (test Normal code = 08952-2) [facility], [id number] 18:40:35 Test Item Value Reference Range Interpretation Comments Lactate, Art (test code = 2.1 mmol/L 0.5-2.2 2874) BRANDI (test code = BRANDI) Hand I Thermal Cutter ID - HIEN Lab Interpretation (test Normal code = 41906-4) [facility], [id number] 18:40:35 Test Item Value Reference Range Interpretation Comments Lactate, Art (test code = 2.1 mmol/L 0.5-2.2 2874) BRANDI (test code = BRANDI) Hand I Thermal Cutter ID - HIEN M Lab Interpretation (test Normal code = 81485-1) [facility], Mdwbwttq7554-25-52 18:40:35 Test Item Value Reference Range Interpretation Comments Lactate, Art (test code = 2.1 mmol/L 0.5-2.2 2874) BRANDI (test code = BRANDI) Hand I Thermal Cutter ID - HIEN M Lab Interpretation (test Normal code = 67853-9) [facility], [id number] 18:40:35 Test Item Value Reference Range Interpretation Comments LACTATE BLOOD ARTERIAL (2) 2.1 mmol/L 0.5-2.2 (BEAKER) (test code = 2874) Hand I Thermal Cutter ID - HIEN [id number] 18:38:33 Test Item Value Reference Range Interpretation Comments PARTIAL THROMBOPLASTIN TIME 37.2 seconds 22.5-36.0 H (BEAKER) (test code = 760) PROTHROMBIN TIME/[id number] 18:37:33 Test Item Value Reference Range Interpretation Comments PROTIME (BEAKER) 16.6 seconds 11.9-14.2 H (test code = 759) INR (BEAKER) (test 1.37 See_Comment [Automat ed message] code = 370) The system [employer] generated this result transmitted ref erence range: [...] 0-0 (test code = 413) HGB/HCT (H&H)-Stat [id number] 16:13:19 Test Item Value Reference Range Interpretation Comments Hemoglobin (test code = 10.6 See_Comment L [Au tomated message] 786-4) The system [employer] generated this result transmitted ref erence range: 12.0 - 1 5.0 GM/DL. The refe rence range was not u sed to interpret this result as normal/abnor mal. Hematocrit (test code = 31.0 % 36.0-45.0 L 4544-3) Lab Interpretation (test Abnormal code = 71557-7) [facility] [id number] 16:13:19 Test Item Value Reference Range Interpretation Comments Hemoglobin (test code = 10.6 See_Comment L [Au tomated message] 786-4) The system [employer] generated this result transmitted ref erence range: 12.0 - 1 5.0 GM/DL. The refe rence range was not u sed to interpret this result as normal/abnor mal. Hematocrit (test code = 31.0 % 36.0-45.0 L 4544-3) Lab Interpretation (test Abnormal code = 87009-0) [facility] [id number] 16:13:19 Test Item Value Reference Range Interpretation Comments Hemoglobin (test code = 10.6 See_Comment L [Au tomated message] 786-4) The system [employer] generated this result transmitted ref erence range: 12.0 - 1 5.0 GM/DL. The refe rence range was not u sed to interpret this result as normal/abnor mal. Hematocrit (test code = 31.0 % 36.0-45.0 L 4544-3) Lab Interpretation (test Abnormal code = 70599-6) [facility] [id number] 16:13:19 Test Item Value Reference Range Interpretation Comments Hemoglobin (test code = 10.6 See_Comment L [Au tomated message] 786-4) The system [employer] generated this result transmitted ref erence range: 12.0 - 1 5.0 GM/DL. The refe rence range was not u sed to interpret this result as normal/abnor mal. Hematocrit (test code = 31.0 % 36.0-45.0 L 4544-3) Lab Interpretation (test Abnormal code = 73739-6) [facility] [id number] 16:13:19 Test Item Value Reference Range Interpretation Comments Hemoglobin (test code = 10.6 See_Comment L [Au tomated message] 786-4) The system [employer] generated this result transmitted ref erence range: 12.0 - 1 5.0 GM/DL. The refe rence range was not u sed to interpret this result as normal/abnor mal. Hematocrit (test code = 31.0 % 36.0-45.0 L 4544-3) Lab Interpretation (test Abnormal code = 38191-6) [facility] [id number] 16:13:19 Test Item Value Reference Range Interpretation Comments Hemoglobin (test code = 10.6 See_Comment L [Au tomated message] 786-4) The system [employer] generated this result transmitted ref erence range: 12.0 - 1 5.0 GM/DL. The refe rence range was not u sed to interpret this result as normal/abnor mal. Hematocrit (test code = 31.0 % 36.0-45.0 L 4544-3) Lab Interpretation (test Abnormal code = 19298-7) [facility] [id number] 16:13:19 Test Item Value Reference Range Interpretation Comments Hemoglobin (test code = 10.6 See_Comment L [Au tomated message] 786-4) The system [employer] generated this result transmitted ref erence range: 12.0 - 1 5.0 GM/DL. The refe rence range was not u sed to interpret this result as normal/abnor mal. Hematocrit (test code = 31.0 % 36.0-45.0 L 4544-3) Lab Interpretation (test Abnormal code = 92987-1) [facility] [id number] 16:13:19 Test Item Value Reference Range Interpretation Comments Hemoglobin (test code = 10.6 See_Comment L [Au tomated message] 786-4) The system [employer] generated this result transmitted ref erence range: 12.0 - 1 5.0 GM/DL. The refe rence range was not u sed to interpret this result as normal/abnor mal. Hematocrit (test code = 31.0 % 36.0-45.0 L 4544-3) Lab Interpretation (test Abnormal code = 10750-0) [facility] [id number] 16:13:19 Test Item Value Reference Range Interpretation Comments Hemoglobin (test code = 10.6 See_Comment L [Au tomated message] 786-4) The system [employer] generated this result transmitted ref erence range: 12.0 - 1 5.0 GM/DL. The refe rence range was not u sed to interpret this result as normal/abnor mal. Hematocrit (test code = 31.0 % 36.0-45.0 L 4544-3) Lab Interpretation (test Abnormal code = 40576-5) [facility] [id number] 16:13:19 Test Item Value Reference Range Interpretation Comments Hemoglobin (test code = 10.6 See_Comment L [Au tomated message] 786-4) The system [employer] generated this result transmitted ref erence range: 12.0 - 1 5.0 GM/DL. The refe rence range was not u sed to interpret this result as normal/abnor mal. Hematocrit (test code = 31.0 % 36.0-45.0 L 4544-3) Lab Interpretation (test Abnormal code = 20471-2) [facility] [id number] 16:13:19 Test Item Value Reference Range Interpretation Comments Hemoglobin (test code = 10.6 See_Comment L [Au tomated message] 786-4) The system [employer] generated this result transmitted ref erence range: 12.0 - 1 5.0 GM/DL. The refe rence range was not u sed to interpret this result as normal/abnor mal. Hematocrit (test code = 31.0 % 36.0-45.0 L 4544-3) Lab Interpretation (test Abnormal code = 03512-6) [facility] [id number] 16:13:19 Test Item Value Reference Range Interpretation Comments Hemoglobin (test code = 10.6 See_Comment L [Au tomated message] 786-4) The system [employer] generated this result transmitted ref erence range: 12.0 - 1 5.0 GM/DL. The refe rence range was not u sed to interpret this result as normal/abnor mal. Hematocrit (test code = 31.0 % 36.0-45.0 L 4544-3) Lab Interpretation (test Abnormal code = 69067-8) [facility] [id number] 16:13:19 Test Item Value Reference Range Interpretation Comments Hemoglobin (test code = 10.6 See_Comment L [Au tomated message] 786-4) The system [employer] generated this result transmitted ref erence range: 12.0 - 1 5.0 GM/DL. The refe rence range was not u sed to interpret this result as normal/abnor mal. Hematocrit (test code = 31.0 % 36.0-45.0 L 4544-3) Lab Interpretation (test Abnormal code = 99451-5) [facility] [id number] 16:13:19 Test Item Value Reference Range Interpretation Comments HEMOGLOBIN (BEAKER) (test code = 10.6 GM/DL 12.0-15.0 L 410) HEMATOCRIT (BEAKER) (test code = 31.0 % 36.0-45.0 L 411) Glucose-Stat [id number] 16:13:18 Test Item Value Reference Range Interpretation Comments Glucose (test code = 2345-7) 205 mg/dL 70-110 H Lab Interpretation (test code = Abnormal 31045-1) [facility] [id number] 16:13:18 Test Item Value Reference Range Interpretation Comments Sodium (test code = 2951-2) 134 meq/L 136-145 L Lab Interpretation (test code = Abnormal 44418-3) [facility] [id number] 16:13:18 Test Item Value Reference Range Interpretation Comments Glucose (test code = 2345-7) 205 mg/dL 70-110 H Lab Interpretation (test code = Abnormal 06090-6) [facility] [id number] 16:13:18 Test Item Value Reference Range Interpretation Comments Sodium (test code = 2951-2) 134 meq/L 136-145 L Lab Interpretation (test code = Abnormal 24127-4) [facility] [id number] 16:13:18 Test Item Value Reference Range Interpretation Comments Glucose (test code = 2345-7) 205 mg/dL 70-110 H Lab Interpretation (test code = Abnormal 08998-8) [facility] [id number] 16:13:18 Test Item Value Reference Range Interpretation Comments Sodium (test code = 2951-2) 134 meq/L 136-145 L Lab Interpretation (test code = Abnormal 72862-8) [facility] [id number] 16:13:18 Test Item Value Reference Range Interpretation Comments Glucose (test code = 2345-7) 205 mg/dL 70-110 H Lab Interpretation (test code = Abnormal 07611-6) [facility] [id number] 16:13:18 Test Item Value Reference Range Interpretation Comments Sodium (test code = 2951-2) 134 meq/L 136-145 L Lab Interpretation (test code = Abnormal 02838-5) [facility] [id number] 16:13:18 Test Item Value Reference Range Interpretation Comments Glucose (test code = 2345-7) 205 mg/dL 70-110 H Lab Interpretation (test code = Abnormal 90822-9) [facility] [id number] 16:13:18 Test Item Value Reference Range Interpretation Comments Sodium (test code = 2951-2) 134 meq/L 136-145 L Lab Interpretation (test code = Abnormal 71752-3) [facility] [id number] 16:13:18 Test Item Value Reference Range Interpretation Comments Glucose (test code = 2345-7) 205 mg/dL 70-110 H Lab Interpretation (test code = Abnormal 37805-9) [facility] [id number] 16:13:18 Test Item Value Reference Range Interpretation Comments Sodium (test code = 2951-2) 134 meq/L 136-145 L Lab Interpretation (test code = Abnormal 06938-6) [facility] [id number] 16:13:18 Test Item Value Reference Range Interpretation Comments Glucose (test code = 2345-7) 205 mg/dL 70-110 H Lab Interpretation (test code = Abnormal 17211-3) [facility] [id number] 16:13:18 Test Item Value Reference Range Interpretation Comments Sodium (test code = 2951-2) 134 meq/L 136-145 L Lab Interpretation (test code = Abnormal 08648-4) [facility] [id number] 16:13:18 Test Item Value Reference Range Interpretation Comments Glucose (test code = 2345-7) 205 mg/dL 70-110 H Lab Interpretation (test code = Abnormal 88500-6) [facility] [id number] 16:13:18 Test Item Value Reference Range Interpretation Comments Sodium (test code = 2951-2) 134 meq/L 136-145 L Lab Interpretation (test code = Abnormal 48699-8) [facility] [id number] 16:13:18 Test Item Value Reference Range Interpretation Comments Glucose (test code = 2345-7) 205 mg/dL 70-110 H Lab Interpretation (test code = Abnormal 06121-8) [facility] [id number] 16:13:18 Test Item Value Reference Range Interpretation Comments Sodium (test code = 2951-2) 134 meq/L 136-145 L Lab Interpretation (test code = Abnormal 01138-6) [facility] [id number] 16:13:18 Test Item Value Reference Range Interpretation Comments Glucose (test code = 2345-7) 205 mg/dL 70-110 H Lab Interpretation (test code = Abnormal 04822-7) [facility] [id number] 16:13:18 Test Item Value Reference Range Interpretation Comments Sodium (test code = 2951-2) 134 meq/L 136-145 L Lab Interpretation (test code = Abnormal 61543-5) [facility] [id number] 16:13:18 Test Item Value Reference Range Interpretation Comments Glucose (test code = 2345-7) 205 mg/dL 70-110 H Lab Interpretation (test code = Abnormal 36101-5) [facility] [id number] 16:13:18 Test Item Value Reference Range Interpretation Comments Sodium (test code = 2951-2) 134 meq/L 136-145 L Lab Interpretation (test code = Abnormal 69794-6) [facility] [id number] 16:13:18 Test Item Value Reference Range Interpretation Comments Glucose (test code = 2345-7) 205 mg/dL 70-110 H Lab Interpretation (test code = Abnormal 56041-6) [facility] [id number] 16:13:18 Test Item Value Reference Range Interpretation Comments Sodium (test code = 2951-2) 134 meq/L 136-145 L Lab Interpretation (test code = Abnormal 95188-1) [facility] [id number] 16:13:18 Test Item Value Reference Range Interpretation Comments Glucose (test code = 2345-7) 205 mg/dL 70-110 H Lab Interpretation (test code = Abnormal 29667-7) [facility] [id number] 16:13:18 Test Item Value Reference Range Interpretation Comments Sodium (test code = 2951-2) 134 meq/L 136-145 L Lab Interpretation (test code = Abnormal 40275-3) [facility] [id number] 16:13:18 Test Item Value Reference Range Interpretation Comments SODIUM (BEAKER) (test code = 381) 134 meq/L 136-145 L GLUCOSE-STAT [id number] 16:13:18 Test Item Value Reference Range Interpretation Comments GLUCOSE RANDOM (BEAKER) (test code 205 mg/dL 70-110 H = 652) BLOOD GAS, [id number] 16:13:17 Test Item Value Reference Range Interpretation [...] (BEAKER) (test code = 1819) 60.0 Potassium-Stat [id number] 16:11:46 Test Item Value Reference Range Interpretation Comments Potassium (test code = 2823-3) 4.5 meq/L 3.6-5.5 Lab Interpretation (test code = Normal 31551-3) [facility] [id number] 16:11:46 Test Item Value Reference Range Interpretation Comments Potassium (test code = 2823-3) 4.5 meq/L 3.6-5.5 Lab Interpretation (test code = Normal 52443-7) [facility] [id number] 16:11:46 Test Item Value Reference Range Interpretation Comments Potassium (test code = 2823-3) 4.5 meq/L 3.6-5.5 Lab Interpretation (test code = Normal 93953-0) [facility] [id number] 16:11:46 Test Item Value Reference Range Interpretation Comments Potassium (test code = 2823-3) 4.5 meq/L 3.6-5.5 Lab Interpretation (test code = Normal 06195-5) [facility] [id number] 16:11:46 Test Item Value Reference Range Interpretation Comments Potassium (test code = 2823-3) 4.5 meq/L 3.6-5.5 Lab Interpretation (test code = Normal 15262-1) [facility] [id number] 16:11:46 Test Item Value Reference Range Interpretation Comments Potassium (test code = 2823-3) 4.5 meq/L 3.6-5.5 Lab Interpretation (test code = Normal 90278-7) [facility] [id number] 16:11:46 Test Item Value Reference Range Interpretation Comments Potassium (test code = 2823-3) 4.5 meq/L 3.6-5.5 Lab Interpretation (test code = Normal 78642-8) [facility] [id number] 16:11:46 Test Item Value Reference Range Interpretation Comments Potassium (test code = 2823-3) 4.5 meq/L 3.6-5.5 Lab Interpretation (test code = Normal 26377-5) [facility] [id number] 16:11:46 Test Item Value Reference Range Interpretation Comments Potassium (test code = 2823-3) 4.5 meq/L 3.6-5.5 Lab Interpretation (test code = Normal 98171-7) [facility] [id number] 16:11:46 Test Item Value Reference Range Interpretation Comments Potassium (test code = 2823-3) 4.5 meq/L 3.6-5.5 Lab Interpretation (test code = Normal 13140-4) [facility] [id number] 16:11:46 Test Item Value Reference Range Interpretation Comments Potassium (test code = 2823-3) 4.5 meq/L 3.6-5.5 Lab Interpretation (test code = Normal 14197-3) [facility] [id number] 16:11:46 Test Item Value Reference Range Interpretation Comments Potassium (test code = 2823-3) 4.5 meq/L 3.6-5.5 Lab Interpretation (test code = Normal 98727-9) [facility] [id number] 16:11:46 Test Item Value Reference Range Interpretation Comments Potassium (test code = 2823-3) 4.5 meq/L 3.6-5.5 Lab Interpretation (test code = Normal 27414-4) [facility] [id number] 16:11:46 Test Item Value Reference Range Interpretation Comments POTASSIUM (BEAKER) (test code = 4.5 meq/L 3.6-5.5 379) CALCIUM, [id number] 16:11:08 Test Item Value Reference Range Interpretation Comments CALCIUM IONIZED (BEAKER) (test 1.16 mmol/L 1.12-1.27 code = 698) PH, BLOOD (BEAKER) (test code = 7.44 1810) Manual Avoxpjpgsoyw1018-08-08 16:00:23 Test Item Value Reference Range Interpretation [...] Poikilocytes (test code = 1+ few 966) Paradise Cells (test code = 1+ few 474) Artifact (test code = Present 3432) Platelet Conc (test code Decreased = 3438) BRANDI (test code = BRANDI) Hand I Thermal Cutter ID - Liza Lu comments: Slide comments: Lab Interpretation (test Abnormal code = 86673-6) [facility] Fkzlbhnpinzo8317-87-32 16:00:23 Test Item Value Reference Range Interpretation [...] = 3438) BRANDI (test code = BRANDI) Hand I Thermal Cutter ID - Liza Tabitha comments: Slide comments: Lab Interpretation (test Abnormal code = 57075-6) [facility] Ilqskpimzwnd6809-35-59 16:00:23 Test Item Value Reference Range Interpretation [...] = 3438) BRANDI (test code = BRANDI) Hand I Thermal Cutter ID - Liza Lu comments: Slide comments: Lab Interpretation (test Abnormal code = 78284-2) [facility] Lxivvvxvifir6181-36-83 16:00:23 Test Item Value Reference Range Interpretation [...] = 3438) BRANDI (test code = BRANDI) Hand I Thermal Cutter ID - Liza Lu comments: Slide comments: Lab Interpretation (test Abnormal code = 46228-9) [facility] Edhpzqveqpmo6417-09-15 16:00:23 Test Item Value Reference Range Interpretation [...] = 3438) BRANDI (test code = BRANDI) Hand I Thermal Cutter ID - Liza Lu comments: Slide comments: Lab Interpretation (test Abnormal code = 79262-2) [facility] Xikrqohkkukr7586-74-97 16:00:23 Test Item Value Reference Range Interpretation [...] Poikilocytes (test code = 1+ few 966) Paradise Cells (test code = 1+ few 474) Artifact (test code = Present 3432) Platelet Conc (test code Decreased = 3438) BRANDI (test code = BRANDI) Hand I Thermal Cutter ID - Liza Lu comments: Slide comments: Lab Interpretation (test Abnormal code = 38536-5) [facility] Kzfsfcfqipon8130-54-12 16:00:23 Test Item Value Reference Range Interpretation [...] = 3438) BRANDI (test code = BRANDI) Hand I Thermal Cutter ID - Liza Lu comments: Slide comments: Lab Interpretation (test Abnormal code = 52698-8) [facility] Lpxhciizqjvq4169-14-98 16:00:23 Test Item Value Reference Range Interpretation [...] Poikilocytes (test code = 1+ few 966) Paradise Cells (test code = 1+ few 474) Artifact (test code = Present 3432) Platelet Conc (test code Decreased = 3438) BRANDI (test code = BRANDI) Hand I Thermal Cutter ID - Liza Lu comments: Slide comments: Lab Interpretation (test Abnormal code = 09796-4) [facility] Oqeakvbkawoi9236-03-64 16:00:23 Test Item Value Reference Range Interpretation [...] Poikilocytes (test code = 1+ few 966) Paradise Cells (test code = 1+ few 474) Artifact (test code = Present 3432) Platelet Conc (test code Decreased = 3438) BRANDI (test code = BRANDI) Hand I Thermal Cutter ID - Liza Lu comments: Slide comments: Lab Interpretation (test Abnormal code = 56321-9) [facility] Vnrqitahamrp3215-51-20 16:00:23 Test Item Value Reference Range Interpretation [...] = 3438) BRANDI (test code = BRANDI) Hand I Thermal Cutter ID - Liza Lu comments: Slide comments: Lab Interpretation (test Abnormal code = 92384-1) [facility] Nxdrjpusaptz7818-60-28 16:00:23 Test Item Value Reference Range Interpretation [...] Poikilocytes (test code = 1+ few 966) Paradise Cells (test code = 1+ few 474) Artifact (test code = Present 3432) Platelet Conc (test code Decreased = 3438) BRANDI (test code = BRANDI) Hand I Thermal Cutter ID - Liza Lu comments: Slide comments: Lab Interpretation (test Abnormal code = 70580-1) [facility] Vyikpelrgtqf0597-95-21 16:00:23 Test Item Value Reference Range Interpretation [...] Poikilocytes (test code = 1+ few 966) Paradise Cells (test code = 1+ few 474) Artifact (test code = Present 3432) Platelet Conc (test code Decreased = 3438) BRANDI (test code = BRANDI) Hand I Thermal Cutter ID - Liza Lu comments: Slide comments: Lab Interpretation (test Abnormal code = 15686-7) [facility] Ejaavzymnwyc1803-29-04 16:00:23 Test Item Value Reference Range Interpretation [...] Poikilocytes (test code = 1+ few 966) Paradise Cells (test code = 1+ few 474) Artifact (test code = Present 3432) Platelet Conc (test code Decreased = 3438) BRANDI (test code = BRANDI) Hand I Thermal Cutter ID - Liza Lu comments: Slide comments: Lab Interpretation (test Abnormal code = 32138-8) [facility](CELLAVISION MANUAL DIFF)2021-06-18 16:00:23 Test Item [...] CONCENTRATION Decreased (CELLAVISION)(BEAKER) (test code = 3438) Hand I Thermal Cutter ID - Liza Lu comments: Slide comments:RAD, CHEST, 1 VIEW, NON [id number] 15:58:00Reason for exam:->Post-opShould this be performed at the bedside?->Yes [facility] CENTERName: JAK MERRILL : 1955 Sex: FFINAL REPORT CHEST AP PORTABLE COMPARISON STUDY: 06/10/2021 History provided: Postopevaluation ET tube in place with tip midway between clavicles and marlon. NG tip in the stomach. Right jugular [place]-Blayne catheter with tip in the right main pulmonary artery. Chest tubes with no pneumothorax. Mild right basilar atelectasis with trace right pleural effusion. Lungs otherwise grossly clear and vascularity normal. Signed: Wero Alvarez MDRhospital for special care Verified Date/Time: 06/18/2021 15:58:54 Reading Location: [facility] Diagnostic Imaging Reading Room - [facility] 1.310.12 C METABOLIC [id number] 15:57:50 Test Item Value Reference Range Interpretation [...] S NOT APPLICABLE FOR DIALYSIS PATIEN TS. Hand I Thermal Cutter ID - HIEN SShfxlghdi-WSDR7317-01-17 15:57:19 Test Item Value Reference Range Interpretation Comments Potassium (test code = 2823-3) 4.8 meq/L 3.5-5.1 Lab Interpretation (test code = Normal 89561-2) [facility]MSQ[facility]-98 15:57:19 Test Item Value Reference Range Interpretation Comments Potassium (test code = 2823-3) 4.8 meq/L 3.5-5.1 Lab Interpretation (test code = Normal 45630-6) [facility] HospitalUSKH4515-90-13 15:57:19 Test Item Value Reference Range Interpretation Comments Potassium (test code = 2823-3) 4.8 meq/L 3.5-5.1 Lab Interpretation (test code = Normal 38675-9) [facility] Sunsetassium-NYFW4354-39-61 15:57:19 Test Item Value Reference Range Interpretation Comments Potassium (test code = 2823-3) 4.8 meq/L 3.5-5.1 Lab Interpretation (test code = Normal 88568-5) [facility] HospitalPZJD1148-77-47 15:57:19 Test Item Value Reference Range Interpretation Comments Potassium (test code = 2823-3) 4.8 meq/L 3.5-5.1 Lab Interpretation (test code = Normal 95095-1) [facility] HospitalTJHE0086-87-26 15:57:19 Test Item Value Reference Range Interpretation Comments Potassium (test code = 2823-3) 4.8 meq/L 3.5-5.1 Lab Interpretation (test code = Normal 10835-5) [facility] HospitalZPKZ2866-43-22 15:57:19 Test Item Value Reference Range Interpretation Comments Potassium (test code = 2823-3) 4.8 meq/L 3.5-5.1 Lab Interpretation (test code = Normal 80687-1) [facility]2022-03-17 15:57:19 Test Item Value Reference Range Interpretation Comments Potassium (test code = 2823-3) 4.8 meq/L 3.5-5.1 Lab Interpretation (test code = Normal 95308-6) [facility]2022-03-17 15:57:19 Test Item Value Reference Range Interpretation Comments Potassium (test code = 2823-3) 4.8 meq/L 3.5-5.1 Lab Interpretation (test code = Normal 97173-5) [facility]2022-03-17 15:57:19 Test Item Value Reference Range Interpretation Comments Potassium (test code = 2823-3) 4.8 meq/L 3.5-5.1 Lab Interpretation (test code = Normal 00332-5) [facility]2022-03-17 15:57:19 Test Item Value Reference Range Interpretation Comments Potassium (test code = 2823-3) 4.8 meq/L 3.5-5.1 Lab Interpretation (test code = Normal 55254-7) [facility]SRZJ7869-01-27 15:57:19 Test Item Value Reference Range Interpretation Comments Potassium (test code = 2823-3) 4.8 meq/L 3.5-5.1 Lab Interpretation (test code = Normal 87501-3) [facility] HospitalKUPD4505-37-04 15:57:19 Test Item Value Reference Range Interpretation Comments Potassium (test code = 2823-3) 4.8 meq/L 3.5-5.1 Lab Interpretation (test code = Normal 01770-4) [facility]2022-03-17 15:57:19 Test Item Value Reference Range Interpretation Comments POTASSIUM (BEAKER) (test code = 4.8 meq/L 3.5-5.1 379) LGDUPOAPYP6078-69-04 15:57:19 Test Item Value Reference Range Interpretation Comments PHOSPHORUS (BEAKER) (test code = 4.9 mg/dL 2.3-4.7 H 604) Hand I Thermal Cutter ID - HIEN HVQVNOARDY0131-90-59 15:57:18 Test Item Value Reference Range Interpretation Comments MAGNESIUM (BEAKER) (test code = 2.6 mg/dL 1.6-2.6 627) Hand I Thermal Cutter ID - HIEN MPrepare rmowpi1319-60-47 15:44:00 Test Item Value Reference Range Interpretation Comments Unit ABO (test code = O Neg [id number]) UNIT NUMBER (test code = [id number] 934-0) Status (test code = RETURNED FROM ISSUE [id number]) Blood Bank Product (test FFP code = 2263) PRODUCT CODE (test code = [id number] 933-2) [facility] [id number] 15:44:00 Test Item Value Reference Range Interpretation Comments Unit ABO (test code = O Neg [id number]) UNIT NUMBER (test code = [id number] 934-0) Status (test code = RETURNED FROM ISSUE 15100613) Blood Bank Product (test FFP code = 2263) PRODUCT CODE (test code = K7527K02 933-2) [facility] mlblan1352-15-38 15:44:00 Test Item Value Reference Range Interpretation Comments Unit ABO (test code = O Neg 2419295) UNIT NUMBER (test code = [id number] 934-0) Status (test code = RETURNED FROM ISSUE 5193140) Blood Bank Product (test FFP code = 2263) PRODUCT CODE (test code = F4545L86 933-2) [facility] [id number] 15:44:00 Test Item Value Reference Range Interpretation Comments Unit ABO (test code = O Neg 4615479) UNIT NUMBER (test code = [id number] 934-0) Status (test code = RETURNED FROM ISSUE 4071771) Blood Bank Product (test FFP code = 2263) PRODUCT CODE (test code = K6215N76 933-2) [facility] [id number] 15:44:00 Test Item Value Reference Range Interpretation Comments Unit ABO (test code = O Neg 4848152) UNIT NUMBER (test code = [id number] 934-0) Status (test code = RETURNED FROM ISSUE 0611964) Blood Bank Product (test FFP code = 2263) PRODUCT CODE (test code = S7419T10 933-2) [facility] tbjvue1610-95-38 15:44:00 Test Item Value Reference Range Interpretation Comments Unit ABO (test code = O Neg 7706007) UNIT NUMBER (test code = [id number] 934-0) Status (test code = RETURNED FROM ISSUE 8929072) Blood Bank Product (test FFP code = 2263) PRODUCT CODE (test code = W2937Q84 933-2) [facility] ytgzwo6946-88-46 15:44:00 Test Item Value Reference Range Interpretation Comments Unit ABO (test code = O Neg 8051473) UNIT NUMBER (test code = [id number] 934-0) Status (test code = RETURNED FROM ISSUE 4272465) Blood Bank Product (test FFP code = 2263) PRODUCT CODE (test code = J1696Z26 933-2) [facility] spytlm2069-93-01 15:44:00 Test Item Value Reference Range Interpretation Comments Unit ABO (test code = O Neg 5542032) UNIT NUMBER (test code = [id number] 934-0) Status (test code = RETURNED FROM ISSUE 5329326) Blood Bank Product (test FFP code = 2263) PRODUCT CODE (test code = U5821Z52 933-2) [facility] apxwnb5132-52-10 15:44:00 Test Item Value Reference Range Interpretation Comments Unit ABO (test code = O Neg 2527591) UNIT NUMBER (test code = [id number] 934-0) Status (test code = RETURNED FROM ISSUE 6319822) Blood Bank Product (test FFP code = 2263) PRODUCT CODE (test code = L8435R79 933-2) [facility] dcstxp6241-81-27 15:44:00 Test Item Value Reference Range Interpretation Comments Unit ABO (test code = O Neg 6095781) UNIT NUMBER (test code = [id number] 934-0) Status (test code = RETURNED FROM ISSUE 3172851) Blood Bank Product (test FFP code = 2263) PRODUCT CODE (test code = K5112C85 933-2) [facility] erhbgb5818-95-49 15:44:00 Test Item Value Reference Range Interpretation Comments Unit ABO (test code = O Neg 2898507) UNIT NUMBER (test code = [id number] 934-0) Status (test code = RETURNED FROM ISSUE 7443495) Blood Bank Product (test FFP code = 2263) PRODUCT CODE (test code = S5444Z59 933-2) [facility] lzwoqb4511-51-55 15:44:00 Test Item Value Reference Range Interpretation Comments Unit ABO (test code = O Neg 0421496) UNIT NUMBER (test code = [id number] 934-0) Status (test code = RETURNED FROM ISSUE 4888490) Blood Bank Product (test FFP code = 2263) PRODUCT CODE (test code = F1341Z45 933-2) [facility] ucqwul7621-97-77 15:44:00 Test Item Value Reference Range Interpretation Comments Unit ABO (test code = O Neg 4488521) UNIT NUMBER (test code = [id number] 934-0) Status (test code = RETURNED FROM ISSUE 8750899) Blood Bank Product (test FFP code = 2263) PRODUCT CODE (test code = G5359M20 933-2) [facility] 15:32:33 Test Item Value Reference Range Interpretation Comments PARTIAL THROMBOPLASTIN TIME 37.6 seconds 22.5-36.0 H (BEAKER) (test code = 760) PROTHROMBIN TIME/[id number] 15:31:52 Test Item Value Reference Range Interpretation Comments PROTIME (BEAKER) 17.9 seconds 11.9-14.2 H (test code = 759) INR (BEAKER) (test 1.50 See_Comment [Automat ed message] code = 370) The system [employer] generated this result transmitted ref erence range: <=5.90. The reference range was not used to int erpret this result as normal/abnormal . RECOMMENDED COUMADIN/WARFARIN INR THERAPY RANGESSTANDARD DOSE: 2.0 - 3.0 Includes: PROPHYLAXIS for venous thrombosis, systemic embolization; TREATMENT for venous thrombosis and/or pulmonary embolus.HIGH RISK: Target INR is 2.5-3.5 for patients with mechanical heart valves.CBC with platelet count + automated [id number] 15:24:09 Test Item Value Reference Range Interpretation Comments WBC (test code = 6690-2) 16.2 See_Comment H [A utomated message] The system [employer] generated this result transmitted ref erence range: 3.5 - 10 .5 K/L. The refe rence range was not u sed to interpret this result as normal/abnor mal. RBC (test code = 789-8) 3.33 See_Comment L [Au tomated message] The system [employer] generated this result transmitted ref erence range: 3.93 - 5 .22 M/L. The refe rence range was not u sed to interpret this result as normal/abnor mal. MCHC (test code = 786-4) 31.8 See_Comment L [A utomated message] The system [employer] generated this result transmitted ref erence range: [...] L [Aut omated message] 777-3) The system [employer] generated this result transmitted ref erence range: 150 - 45 0 K/CU MM. The referen ce range was not u sed to interpret this result as normal/abnor mal. MPV (test code = 10.3 fL 9.4-12.3 08282-8) nRBC (test code = 413) 0 See_Comment [Aut omated message] The system [employer] generated this result transmitted ref erence range: 0 - 0 /1 00 WBC. The refere nce range was not u sed to interpret this result as normal/abnor mal. Lab Interpretation (test Abnormal code = 91907-4) [facility] with platelet count + automated guap2842-12-09 15:24:09 Test Item Value Reference Range Interpretation Comments WBC (test code = 6690-2) 16.2 See_Comment H [A utomated message] The system [employer] generated this result transmitted ref erence range: 3.5 - 10 .5 K/L. The refe rence range was not u sed to interpret this result as normal/abnor mal. RBC (test code = 789-8) 3.33 See_Comment L [Au tomated message] The system [employer] generated this result transmitted ref erence range: 3.93 - 5 .22 M/L. The refe rence range was not u sed to interpret this result as normal/abnor mal. MCHC (test code = 786-4) 31.8 See_Comment L [A utomated message] The system [employer] generated this result transmitted ref erence range: [...] L [Aut omated message] 777-3) The system [employer] generated this result transmitted ref erence range: 150 - 45 0 K/CU MM. The referen ce range was not u sed to interpret this result as normal/abnor mal. MPV (test code = 10.3 fL 9.4-12.3 06482-2) nRBC (test code = 413) 0 See_Comment [Aut omated message] The system [employer] generated this result transmitted ref erence range: 0 - 0 /1 00 WBC. The refere nce range was not u sed to interpret this result as normal/abnor mal. Lab Interpretation (test Abnormal code = 42953-9) [facility] W/PLT COUNT & AUTO [id number] 15:24:09 Test Item Value Reference Range Interpretation [...] (BEAKER) (test code = 413) Hemoglobin and fvxxejrdrf6771-39-70 15:23:11 Test Item Value Reference Range Interpretation Comments Hemoglobin (test code = 10.0 See_Comment L [Au tomated message] 786-4) The system [employer] generated this result transmitted ref erence range: 11.2 - 1 5.7 GM/DL. The refe rence range was not u sed to interpret this result as normal/abnor mal. Hematocrit (test code = 31.4 % 34.1-44.9 L 4544-3) Lab Interpretation (test Abnormal code = 40586-8) [facility] [id number] 15:23:11 Test Item Value Reference Range Interpretation Comments HEMOGLOBIN (BEAKER) (test code = 10.0 GM/DL 11.2-15.7 L 410) HEMATOCRIT (BEAKER) (test code = 31.4 % 34.1-44.9 L 411) BLOOD GAS, [id number] 15:19:54 Test Item Value Reference Range Interpretation [...] = 1819) 75.0 HGB/HCT (H&H) - STAT [id number] 15:19:53 Test Item Value Reference Range Interpretation Comments HEMOGLOBIN (BEAKER) (test code = 10.6 GM/DL 12.0-15.0 L 410) HEMATOCRIT (BEAKER) (test code = 31.0 % 36.0-45.0 L 411) GLUCOSE-STAT [id number] 15:19:46 Test Item Value Reference Range Interpretation Comments GLUCOSE RANDOM (BEAKER) (test code 200 mg/dL 70-110 H = 652) OXYGEN SATURATION, [id number] 15:18:32 Test Item Value Reference Range Interpretation Comments O2 SATURATION (MEASURED) (BEAKER) 83.4 % (test code = 1455) POTASSIUM-STAT [id number] 15:18:10 Test Item Value Reference Range Interpretation Comments POTASSIUM (BEAKER) (test code = 4.5 meq/L 3.6-5.5 379) SODIUM NA-STAT [id number] 15:18:09 Test Item Value Reference Range Interpretation Comments SODIUM (BEAKER) (test code = 381) 136 meq/L 136-145 CALCIUM, [id number] 15:18:08 Test Item Value Reference Range Interpretation Comments CALCIUM IONIZED (BEAKER) (test 1.14 mmol/L 1.12-1.27 code = 698) PH, BLOOD (BEAKER) (test code = 7.39 1810) POC ACTIVATED CLOTTING [id number] 14:20:47 Test Item Value Reference Range Interpretation Comments Activated Clotting Time 130 sec : 74 -137 seconds, (test code = 441) Baseline: TESTED AT [address], [facility] 30: Hand I Thermal Cutter/Techni kelle ID = [id number] for Me ndoza, [place] [facility] ACTIVATED CLOTTING [id number] 14:20:47 Test Item Value Reference Range Interpretation Comments Activated Clotting Time 130 sec : 74 -137 seconds, (test code = 441) Baseline: TESTED AT [address], [address]: Hand I Thermal Cutter/Techni kelle ID = [id number] for Me ndoza, [place] [facility] ACTIVATED CLOTTING [id number] 14:20:47 Test Item Value Reference Range Interpretation Comments Activated Clotting Time 130 sec : 74 -137 seconds, (test code = 441) Baseline: TESTED AT [address], [address]: Hand I Thermal Cutter/Techni kelle ID = [id number] for Me ndoza, [place] [facility] ACTIVATED CLOTTING [id number] 14:20:47 Test Item Value Reference Range Interpretation Comments Activated Clotting Time 130 sec : 74 -137 seconds, (test code = 441) Baseline: TESTED AT [address], [address]: Hand I Thermal Cutter/Techni kelle ID = [id number] for Me ndoza, [place] [facility] ACTIVATED CLOTTING [id number] 14:20:47 Test Item Value Reference Range Interpretation Comments Activated Clotting Time 130 sec : 74 -137 seconds, (test code = 441) Baseline: TESTED AT [address], [address]: Hand I Thermal Cutter/Techni kelle ID = [id number] for Me ndoza, [place] [facility] ACTIVATED CLOTTING [id number] 14:20:47 Test Item Value Reference Range Interpretation Comments Activated Clotting Time 130 sec : 74 -137 seconds, (test code = 441) Baseline: TESTED AT [address], [address]: Hand I Thermal Cutter/Techni kelle ID = [id number] for Me ndoza, Rocky [facility] ACTIVATED CLOTTING [id number] 14:20:47 Test Item Value Reference Range Interpretation Comments Activated Clotting Time 130 sec : 74 -137 seconds, (test code = 441) Baseline: TESTED AT [address], [address]: Hand I Thermal Cutter/Techni kelle ID = [id number] for Me ndoza, Rocky [facility] ACTIVATED CLOTTING [id number] 14:20:47 Test Item Value Reference Range Interpretation Comments Activated Clotting Time 130 sec : 74 -137 seconds, (test code = 441) Baseline: TESTED AT [address], [address]: Hand I Thermal Cutter/Techni kelle ID = [id number] for Me ndoza, Rocky [facility] ACTIVATED CLOTTING [id number] 14:20:47 Test Item Value Reference Range Interpretation Comments Activated Clotting Time 130 sec : 74 -137 seconds, (test code = 441) Baseline: TESTED AT [address], [address]: Hand I Thermal Cutter/Techni kelle ID = [id number] for Me ndoza, Rocky [facility] ACTIVATED CLOTTING [id number] 14:20:47 Test Item Value Reference Range Interpretation Comments Activated Clotting Time 130 sec : 74 -137 seconds, (test code = 441) Baseline: TESTED AT [address], [address]: Hand I Thermal Cutter/Techni kelle ID = [id number] for Me ndoza, Rocky [facility] ACTIVATED CLOTTING [id number] 14:20:47 Test Item Value Reference Range Interpretation Comments Activated Clotting Time 130 sec : 74 -137 seconds, (test code = 441) Baseline: TESTED AT [address], [address]: Hand I Thermal Cutter/Techni kelle ID = [id number] for Me ndoza, Rocky [facility] ACTIVATED CLOTTING [id number] 14:20:47 Test Item Value Reference Range Interpretation Comments Activated Clotting Time 130 sec : 74 -137 seconds, (test code = 441) Baseline: TESTED AT [address], [facility] 30: Hand I Thermal Cutter/Techni kelle ID = [id number] for Rocky Danielle [facility] ACTIVATED CLOTTING [id number] 14:20:47 Test Item Value Reference Range Interpretation Comments Activated Clotting Time 130 sec : 74 -137 seconds, (test code = 441) Baseline: TESTED AT [address], [facility] 30: Hand I Thermal Cutter/Techni kelle ID = [id number] for Me sanchezoza, Rocky [id number] 14:20:47 Test Item Value Reference Range Interpretation Comments ACTIVATED CLOTTING TIME 130 sec : 74 -137 seconds, (BEAKER) (test code = Baseli ne: TESTED AT 441) [address], [facility] 30: Hand I Thermal Cutter/Techni kelle ID = [id number] for Me sanchezoza, Rocky PLPA-[id number] 14:20:46 Test Item Value Reference Range Interpretation Comments ACTIVATED CLOTTING TIME 577 sec : 74 -137 seconds, (BEAKER) (test code = Baseli ne: TESTED AT 441) [address], [facility] 30: Hand I Thermal Cutter/Techni kelle ID = [id number] for ndoza, Rocky VJKL-[id number] 14:20:45 Test Item Value Reference Range Interpretation Comments ACTIVATED CLOTTING TIME 743 sec : 74 -137 seconds, (BEAKER) (test code = Baseli ne: TESTED AT 441) [address], [facility] 30: Hand I Thermal Cutter/Techni kelle ID = [id number] for Me ndoza, Rocky [id number]-[id number] 14:20:45 Test Item Value Reference Range Interpretation Comments ACTIVATED CLOTTING TIME 618 sec : 74 -137 seconds, (BEAKER) (test code = Baseli ne: TESTED AT 441) [address], [facility] 30: Hand I Thermal Cutter/Techni kelle ID = [id number] for Me ndoza, Rocky RBYX-[id number] 14:20:44 Test Item Value Reference Range Interpretation Comments ACTIVATED CLOTTING TIME 547 sec : 74 -137 seconds, (BEAKER) (test code = Baseli ne: TESTED AT 441) [facility] [address] [facility], [address]: Hand I Thermal Cutter/Techni kelle ID = [id number] for Rocky Danielle [id number]-[id number] 14:20:12 Test Item Value Reference Range Interpretation Comments ACTIVATED CLOTTING TIME 809 sec : 74 -137 seconds, (BEAKER) (test code = Alex ne: TESTED AT 441) [facility] [address] [facility], [address]: Hand I Thermal Cutter/Techni kelle ID = [id number] for Rocky Danielle [id number] 13:49:05 Test Item Value Reference Range Interpretation Comments PARTIAL THROMBOPLASTIN TIME 38.3 seconds 22.5-36.0 H (BEAKER) (test code = 760) Pjbeijhdxc2417-09-01 13:48:43 Test Item Value Reference Range Interpretation Comments Fibrinogen (test code = 3255-7) 246 mg/dl 225-434 Lab Interpretation (test code = Normal 64154-5) [facility] 13:48:43 Test Item Value Reference Range Interpretation Comments Fibrinogen (test code = 3255-7) 246 mg/dl 225-434 Lab Interpretation (test code = Normal 54292-6) [facility] 13:48:43 Test Item Value Reference Range Interpretation Comments Fibrinogen (test code = 3255-7) 246 mg/dl 225-434 Lab Interpretation (test code = Normal 20896-2) [facility] 13:48:43 Test Item Value Reference Range Interpretation Comments Fibrinogen (test code = 3255-7) 246 mg/dl 225-434 Lab Interpretation (test code = Normal 11369-4) [facility] 13:48:43 Test Item Value Reference Range Interpretation Comments Fibrinogen (test code = 3255-7) 246 mg/dl 225-434 Lab Interpretation (test code = Normal 41274-7) [facility] 13:48:43 Test Item Value Reference Range Interpretation Comments Fibrinogen (test code = 3255-7) 246 mg/dl 225-434 Lab Interpretation (test code = Normal 18614-2) [facility]2022-03-17 13:48:43 Test Item Value Reference Range Interpretation Comments Fibrinogen (test code = 3255-7) 246 mg/dl 225-434 Lab Interpretation (test code = Normal 59564-9) [facility]2022-03-17 13:48:43 Test Item Value Reference Range Interpretation Comments Fibrinogen (test code = 3255-7) 246 mg/dl 225-434 Lab Interpretation (test code = Normal 98534-4) [facility]2022-03-17 13:48:43 Test Item Value Reference Range Interpretation Comments Fibrinogen (test code = 3255-7) 246 mg/dl 225-434 Lab Interpretation (test code = Normal 33839-7) [facility]2022-03-17 13:48:43 Test Item Value Reference Range Interpretation Comments Fibrinogen (test code = 3255-7) 246 mg/dl 225-434 Lab Interpretation (test code = Normal 51095-1) [facility]2022-03-17 13:48:43 Test Item Value Reference Range Interpretation Comments Fibrinogen (test code = 3255-7) 246 mg/dl 225-434 Lab Interpretation (test code = Normal 51230-4) [facility]2022-03-17 13:48:43 Test Item Value Reference Range Interpretation Comments Fibrinogen (test code = 3255-7) 246 mg/dl 225-434 Lab Interpretation (test code = Normal 99768-6) [facility]2022-03-17 13:48:43 Test Item Value Reference Range Interpretation Comments Fibrinogen (test code = 3255-7) 246 mg/dl 225-434 Lab Interpretation (test code = Normal 66606-8) [facility]2022-03-17 13:48:43 Test Item Value Reference Range Interpretation Comments FIBRINOGEN LEVEL (BEAKER) (test 246 mg/dl 225-434 code = 658) PROTHROMBIN TIME/[id number] 13:48:05 Test Item Value Reference Range Interpretation Comments PROTIME (BEAKER) 19.5 seconds 11.9-14.2 H (test code = 759) INR (BEAKER) (test 1.67 See_Comment [Automat ed message] code = 370) The system whic h generated this result transmitted ref erence range: <=5.90. The reference range was not used to int erpret this result as normal/abnormal . RECOMMENDED COUMADIN/WARFARIN INR THERAPY RANGESSTANDARD DOSE: 2.0 - 3.0 Includes: PROPHYLAXIS for venous thrombosis, systemic embolization; TREATMENT for venous thrombosis and/or pulmonary embolus.HIGH RISK: Target INR is 2.5-3.5 for patients with mechanical heart valves.Platelet [id number] 13:39:36 Test Item Value Reference Range Interpretation Comments Platelets (test code 133 See_Comment L [Autom ated = 777-3) message] The system which generated this result transmit levi reference range : 150 - 450 K/CU MM. The reference range was not u sed to interpret th is result as normal/abnormal . BRANDI (test code = BRANDI) Hand I Thermal Cutter ID - [id number] Lab Interpretation Abnormal (test code = 36119-6) [facility] fkayq2465-75-47 13:39:36 Test Item Value Reference Range Interpretation Comments Platelets (test code 133 See_Comment L [Autom ated = 777-3) message] The system which generated this result transmit levi reference range : 150 - 450 K/CU MM. The reference range was not u sed to interpret th is result as normal/abnormal . BRANDI (test code = BRANDI) Hand I Thermal Cutter ID - [id number] Lab Interpretation Abnormal (test code = 06087-5) [facility] gkqqb4411-77-31 13:39:36 Test Item Value Reference Range Interpretation Comments Platelets (test code 133 See_Comment L [Autom ated = 777-3) message] The system which generated this result transmit levi reference range : 150 - 450 K/CU MM. The reference range was not u sed to interpret th is result as normal/abnormal . BRANDI (test code = BRANDI) Hand I Thermal Cutter ID - [id number] Lab Interpretation Abnormal (test code = 19463-2) [facility] scbie5853-60-35 13:39:36 Test Item Value Reference Range Interpretation Comments Platelets (test code 133 See_Comment L [Autom ated = 777-3) message] The system which generated this result transmit levi reference range : 150 - 450 K/CU MM. The reference range was not u sed to interpret th is result as normal/abnormal . BRANDI (test code = BRANDI) Hand I Thermal Cutter ID - [id number] Lab Interpretation Abnormal (test code = 26493-9) [facility] [id number] 13:39:36 Test Item Value Reference Range Interpretation Comments Platelets (test code 133 See_Comment L [Autom ated = 777-3) message] The system which generated this result transmit levi reference range : 150 - 450 K/CU MM. The reference range was not u sed to interpret th is result as normal/abnormal . BRANDI (test code = BRANDI) Hand I Thermal Cutter ID - [id number] Lab Interpretation Abnormal (test code = 60685-2) [facility] szskc6084-23-07 13:39:36 Test Item Value Reference Range Interpretation Comments Platelets (test code 133 See_Comment L [Autom ated = 777-3) message] The system which generated this result transmit levi reference range : 150 - 450 K/CU MM. The reference range was not u sed to interpret th is result as normal/abnormal . BRANDI (test code = BRANDI) Hand I Thermal Cutter ID - [id number] Lab Interpretation Abnormal (test code = 35758-8) [facility] [id number] 13:39:36 Test Item Value Reference Range Interpretation Comments Platelets (test code 133 See_Comment L [Autom ated = 777-3) message] The system which generated this result transmit levi reference range : 150 - 450 K/CU MM. The reference range was not u sed to interpret th is result as normal/abnormal . BRANDI (test code = BRANDI) Hand I Thermal Cutter ID - [id number] Lab Interpretation Abnormal (test code = 93114-7) [facility] [id number] 13:39:36 Test Item Value Reference Range Interpretation Comments Platelets (test code 133 See_Comment L [Autom ated = 777-3) message] The system which generated this result transmit levi reference range : 150 - 450 K/CU MM. The reference range was not u sed to interpret th is result as normal/abnormal . BRANDI (test code = BRANDI) Hand I Thermal Cutter ID - [id number] Lab Interpretation Abnormal (test code = 54366-2) [facility] [id number] 13:39:36 Test Item Value Reference Range Interpretation Comments Platelets (test code 133 See_Comment L [Autom ated = 777-3) message] The system which generated this result transmit levi reference range : 150 - 450 K/CU MM. The reference range was not u sed to interpret th is result as normal/abnormal . BRANDI (test code = BRANDI) Hand I Thermal Cutter ID - [id number] Lab Interpretation Abnormal (test code = 81434-7) [facility] [id number] 13:39:36 Test Item Value Reference Range Interpretation Comments Platelets (test code 133 See_Comment L [Autom ated = 777-3) message] The system which generated this result transmit levi reference range : 150 - 450 K/CU MM. The reference range was not u sed to interpret th is result as normal/abnormal . BRANDI (test code = BRANDI) Hand I Thermal Cutter ID - [id number] Lab Interpretation Abnormal (test code = 47119-6) [facility] [id number] 13:39:36 Test Item Value Reference Range Interpretation Comments Platelets (test code 133 See_Comment L [Autom ated = 777-3) message] The system which generated this result transmit levi reference range : 150 - 450 K/CU MM. The reference range was not u sed to interpret th is result as normal/abnormal . BRANDI (test code = BRANDI) Hand I Thermal Cutter ID - [id number] Lab Interpretation Abnormal (test code = 75151-2) [facility] [id number] 13:39:36 Test Item Value Reference Range Interpretation Comments Platelets (test code 133 See_Comment L [Autom ated = 777-3) message] The system which generated this result transmit levi reference range : 150 - 450 K/CU MM. The reference range was not u sed to interpret th is result as normal/abnormal . BRANDI (test code = BRANDI) Hand I Thermal Cutter ID - [id number] Lab Interpretation Abnormal (test code = 66620-4) [id number] 13:39:36 Test Item Value Reference Range Interpretation Comments Platelets (test code 133 See_Comment L [Autom ated = 777-3) message] The system which generated this result transmit levi reference range : 150 - 450 K/CU MM. The reference range was not u sed to interpret th is result as normal/abnormal . BRANDI (test code = BRANDI) Hand I Thermal Cutter ID - 6000 Lab Interpretation Abnormal (test code = 68938-5) [facility] [id number] 13:39:36 Test Item Value Reference Range Interpretation Comments PLATELET COUNT (BEAKER) (test 133 K/CU MM 150-450 L code = 756) Hand I Thermal Cutter ID - 6000HGB/HCT (H&H) - STAT [id number] 13:26:47 Test Item Value Reference Range Interpretation Comments HEMOGLOBIN (BEAKER) (test code = 7.4 GM/DL 12.0-15.0 L 410) HEMATOCRIT (BEAKER) (test code = 22.0 % 36.0-45.0 L 411) GLUCOSE-STAT [id number] 13:26:46 Test Item Value Reference Range Interpretation Comments GLUCOSE RANDOM (BEAKER) (test code 199 mg/dL 70-110 H = 652) SODIUM NA-STAT [id number] 13:26:46 Test Item Value Reference Range Interpretation Comments SODIUM (BEAKER) (test code = 381) 134 meq/L 136-145 L CALCIUM, [id number] 13:26:40 Test Item Value Reference Range Interpretation Comments CALCIUM IONIZED (BEAKER) (test 1.03 mmol/L 1.12-1.27 L code = 698) PH, BLOOD (BEAKER) (test code = 7.33 1810) BLOOD GAS, [id number] 13:26:34 Test Item Value Reference Range Interpretation [...] (BEAKER) (test code = 1819) 100.0 POTASSIUM-STAT [id number] 13:24:59 Test Item Value Reference Range Interpretation Comments POTASSIUM (BEAKER) (test code = 4.5 meq/L 3.6-5.5 379) PLATELET [id number] 13:18:08 Test Item Value Reference Range Interpretation Comments PLATELET COUNT (BEAKER) (test code 53 K/CU MM 150-450 L = 756) Hand I Thermal Cutter ID - [id number] ID - 6000Operator ID - [id number] 12:53:55 Test Item Value Reference Range Interpretation Comments PARTIAL THROMBOPLASTIN TIME > seconds 22.5-36.0 HH (BEAKER) (test code = 760) [id number] 12:36:04 Test Item Value Reference Range Interpretation Comments FIBRINOGEN LEVEL (BEAKER) (test 289 mg/dl 225-434 code = 658) PROTHROMBIN [id number] 12:35:28 Test Item Value Reference Range Interpretation Comments PROTIME (BEAKER) 25.4 seconds 11.9-14.2 H (test code = 759) INR (BEAKER) (test 2.35 See_Comment [Automat ed message] code = 370) The system [employer] generated this result transmitted ref erence range: <=5.90. The reference range was not used to int erpret this result as normal/abnormal . RECOMMENDED COUMADIN/WARFARIN INR THERAPY RANGESSTANDARD DOSE: 2.0 - 3.0 Includes: PROPHYLAXIS for venous thrombosis, systemic embolization; TREATMENT for venous thrombosis and/or pulmonary embolus.HIGH RISK: Target INR is 2.5-3.5 for patients with mechanical heart valves.HGB/HCT (H&H) - STAT [id number] 12:28:06 Test Item Value Reference Range Interpretation Comments HEMOGLOBIN (BEAKER) (test code = 9.3 GM/DL 12.0-15.0 L 410) HEMATOCRIT (BEAKER) (test code = 27.0 % 36.0-45.0 L 411) SODIUM NA-STAT [id number] 12:28:05 Test Item Value Reference Range Interpretation Comments SODIUM (BEAKER) (test code = 381) 133 meq/L 136-145 L GLUCOSE-STAT [id number] 12:28:05 Test Item Value Reference Range Interpretation Comments GLUCOSE RANDOM (BEAKER) (test code 189 mg/dL 70-110 H = 652) BLOOD GAS, [id number] 12:28:04 Test Item Value Reference Range Interpretation [...] (BEAKER) (test code = 1819) 75.0 POTASSIUM-STAT [id number] 12:27:48 Test Item Value Reference Range Interpretation Comments POTASSIUM (BEAKER) (test code = 5.5 meq/L 3.6-5.5 379) BLOOD GAS, [id number] 11:48:59 Test Item Value Reference Range Interpretation [...] (BEAKER) (test code = 1819) 70.0 GLUCOSE-STAT [id number] 11:47:10 Test Item Value Reference Range Interpretation Comments GLUCOSE RANDOM (BEAKER) (test code 186 mg/dL 70-110 H = 652) HGB/HCT (H&H) - STAT [id number] 11:47:10 Test Item Value Reference Range Interpretation Comments HEMOGLOBIN (BEAKER) (test code = 8.9 GM/DL 12.0-15.0 L 410) HEMATOCRIT (BEAKER) (test code = 26.0 % 36.0-45.0 L 411) SODIUM NA-STAT [id number] 11:47:09 Test Item Value Reference Range Interpretation Comments SODIUM (BEAKER) (test code = 381) 133 meq/L 136-145 L POTASSIUM-STAT [id number] 11:46:29 Test Item Value Reference Range Interpretation Comments POTASSIUM (BEAKER) (test code = 5.3 meq/L 3.6-5.5 379) HGB/HCT (H&H) - STAT [id number] 11:17:46 Test Item Value Reference Range Interpretation Comments HEMOGLOBIN (BEAKER) (test code = 9.6 GM/DL 12.0-15.0 L 410) HEMATOCRIT (BEAKER) (test code = 28.0 % 36.0-45.0 L 411) SODIUM NA-STAT [id number] 11:17:45 Test Item Value Reference Range Interpretation Comments SODIUM (BEAKER) (test code = 381) 133 meq/L 136-145 L BLOOD GAS, [id number] 11:17:39 Test Item Value Reference Range Interpretation [...] (BEAKER) (test code = 1819) 70.0 GLUCOSE-STAT [id number] 11:17:39 Test Item Value Reference Range Interpretation Comments GLUCOSE RANDOM (BEAKER) (test code 171 mg/dL 70-110 H = 652) POTASSIUM-STAT [id number] 11:17:36 Test Item Value Reference Range Interpretation Comments POTASSIUM (BEAKER) (test code = 5.1 meq/L 3.6-5.5 379) HGB/HCT (H&H) - STAT [id number] 10:50:26 Test Item Value Reference Range Interpretation Comments HEMOGLOBIN (BEAKER) (test code = 8.4 GM/DL 12.0-15.0 L 410) HEMATOCRIT (BEAKER) (test code = 25.0 % 36.0-45.0 L 411) SODIUM NA-STAT [id number] 10:50:25 Test Item Value Reference Range Interpretation Comments SODIUM (BEAKER) (test code = 381) 133 meq/L 136-145 L GLUCOSE-STAT [id number] 10:50:25 Test Item Value Reference Range Interpretation Comments GLUCOSE RANDOM (BEAKER) (test code 134 mg/dL 70-110 H = 652) BLOOD GAS, [id number] 10:50:24 Test Item Value Reference Range Interpretation [...] (BEAKER) (test code = 1819) 100.0 POTASSIUM-STAT [id number] 10:49:45 Test Item Value Reference Range Interpretation Comments POTASSIUM (BEAKER) (test code = 3.8 meq/L 3.6-5.5 379) Hemoglobin [id number] 09:30:26 Test Item Value Reference Range Interpretation [...] ADM Lab Interpretation Abnormal (test code = 28652-2) [facility] [id number] 09:30:26 Test Item Value Reference Range Interpretation [...] ADM Lab Interpretation Abnormal (test code = 33915-4) [facility] [id number] 09:30:26 Test Item Value Reference Range Interpretation [...] ADM Lab Interpretation Abnormal (test code = 61209-1) [facility] [id number] 09:30:26 Test Item Value Reference Range Interpretation [...] ADM Lab Interpretation Abnormal (test code = 07766-8) [facility] [id number] 09:30:26 Test Item Value Reference Range Interpretation [...] ADM Lab Interpretation Abnormal (test code = 86293-4) [facility] [id number] 09:30:26 Test Item Value Reference Range Interpretation [...] ADM Lab Interpretation Abnormal (test code = 44884-0) [facility] [id number] 09:30:26 Test Item Value Reference Range Interpretation [...] ADM Lab Interpretation Abnormal (test code = 14273-6) [facility] [id number] 09:30:26 Test Item Value Reference Range Interpretation [...] ADM Lab Interpretation Abnormal (test code = 47919-8) [facility] [id number] 09:30:26 Test Item Value Reference Range Interpretation [...] ADM Lab Interpretation Abnormal (test code = 93803-4) [facility] [id number] 09:30:26 Test Item Value Reference Range Interpretation [...] ADM Lab Interpretation Abnormal (test code = 26557-1) [facility] [id number] 09:30:26 Test Item Value Reference Range Interpretation [...] ADM Lab Interpretation Abnormal (test code = 00399-4) [facility] [id number] 09:30:26 Test Item Value Reference Range Interpretation [...] ADM Lab Interpretation Abnormal (test code = 96475-6) [facility] [id number] 09:30:26 Test Item Value Reference Range Interpretation [...] ADM Lab Interpretation Abnormal (test code = 58741-4) [facility] [id number] 09:30:26 Test Item Value Reference Range Interpretation [...] 5.7- 6.4% indicates increased risk for diabetes (prediabetes)."Hand I Thermal Cutter ID - ADM HGB/HCT (H&H) - STAT [id number] 09:13:03 Test Item Value Reference Range Interpretation Comments HEMOGLOBIN (BEAKER) (test code = 9.0 GM/DL 12.0-15.0 L 410) HEMATOCRIT (BEAKER) (test code = 26.0 % 36.0-45.0 L 411) SODIUM NA-STAT [id number] 09:13:02 Test Item Value Reference Range Interpretation Comments SODIUM (BEAKER) (test code = 381) 134 meq/L 136-145 L GLUCOSE-STAT [id number] 09:13:02 Test Item Value Reference Range Interpretation Comments GLUCOSE RANDOM (BEAKER) (test code 112 mg/dL 70-110 H = 652) BLOOD GAS, [id number] 09:13:01 Test Item Value Reference Range Interpretation [...] (BEAKER) (test code = 1819) 100.0 CALCIUM, [id number] 09:13:00 Test Item Value Reference Range Interpretation Comments CALCIUM IONIZED (BEAKER) (test 1.09 mmol/L 1.12-1.27 L code = 698) PH, BLOOD (BEAKER) (test code = 7.46 1810) POTASSIUM-STAT [id number] 09:12:15 Test Item Value Reference Range Interpretation Comments POTASSIUM (BEAKER) (test code = 3.7 meq/L 3.6-5.5 379) BASIC METABOLIC [id number] 07:11:03 Test Item Value Reference Range Interpretation [...] S NOT APPLICABLE FOR DIALYSIS PATIEN TS. Hand I Thermal Cutter ID - HIEN [id number] 06:29:42 Test Item Value Reference Range Interpretation Comments PHOSPHORUS (BEAKER) (test code = 4.7 mg/dL 2.3-4.7 604) Hand I Thermal Cutter ID - HIEN [id number] 06:29:41 Test Item Value Reference Range Interpretation Comments MAGNESIUM (BEAKER) (test code = 2.0 mg/dL 1.6-2.6 627) Hand I Thermal Cutter ID - HIEN [facility] W/PLT COUNT & AUTO [id number] 06:04:09 Test Item Value Reference Range Interpretation [...] code = 2801) RAD, ABDOMEN/KUB, 1 VIEW [id number] 02:55:00Reason for exam:->abdominal painCHI SAN FRANCISCO VA MEDICAL CENTERName: JAK MERRILL : 1955 Sex: [...] no acute bony abnormality. Signed: Braxton Quintero [facility] Verified Date/Time: 06/18/2021 02:55:15 POCT-GLUCOSE [id number] 21:39:12 Test Item Value Reference Range Interpretation Comments POC-GLUCOSE METER 135 mg/dL 70-110 H : TESTED A T [facility] 6720 (AKASH) (test code = [place], 1538) [address]: Hand I Thermal Cutter/Techni kelle ID = [id number] for Eliezer Jerome HEMOGLOBIN AND [id number] 21:31:20 Test Item Value Reference Range Interpretation Comments HEMOGLOBIN (AKASH) (test code = 6.9 GM/DL 11.2-15.7 L 410) HEMATOCRIT (BEAKER) (test code = 21.8 % 34.1-44.9 L 411) Hand I Thermal Cutter ID - 6000Operator ID - 6000CT, [id number] 18:33:00Unlisted Reason for Exam - Click Yes and Enter Reason Below->NoIs this for enterography?->NoPlease specify:->Renal Stone Protocolalso look for spleen if there is any infarct causing left flankpainWill this procedure require oral contrast?->NoDIANE SAN FRANCISCO [facility] MEDICAL CENTERName: JAK MERRILL : 1955 Sex: [...] pelvic ultrasound for further evaluation. Signed: Kb Gregorioeport Verified Date/Time: 06/17/2021 18:33:28 Reading Location: [facility] C013T Transitional Reading Room Comprehensive metabolic [id number] 16:18:22 Test Item Value Reference Range Interpretation Comments Protein, Total (test 7.0 See_Comment [Autom ated code = 2885-2) message] The system which generated this result transmit levi reference range : 6.0 - 8.3 gm/dL . The reference range was not u sed to interpret th is result as normal/abnormal . Albumin (test code = 2.7 g/dL 3.5-5.0 L 72704-5) Alkaline Phosphatase 99 U/L 40-150 (test code [...] Calcium (test code = 8.4 mg/dL 8.4-10.2 57173-2) AST (test code = 17 U/L 5-34 1920-8) ALT (test code = 10 U/L 6-55 1742-6) EGFR (test code = 11 mL/min/1.[place] [address]-8) NOT ACCURATE CREATININE CLEARANCE IN PREDICTING GLOMERULAR FILTRATION RATE . ESTIMATED GFR I S NOT APPLICABLE FOR DIALYSIS PATIEN TS. BRANDI (test code = BRANDI) Hand I Thermal Cutter ID - BS Lab Interpretation Abnormal (test code = 36201-0) [facility] [id number] 16:18:22 Test Item Value Reference Range Interpretation Comments Protein, Total (test 7.0 See_Comment [Autom ated code = 2885-2) message] The system which generated this result transmit levi reference range : 6.0 - 8.3 gm/dL . The reference range was not u sed to interpret th is result as normal/abnormal . Albumin (test code = 2.7 g/dL 3.5-5.0 L 04557-1) Alkaline Phosphatase 99 U/L 40-150 (test code [...] Calcium (test code = 8.4 mg/dL 8.4-10.2 04829-0) AST (test code = 17 U/L 5-34 1920-8) ALT (test code = 10 U/L 6-55 1742-6) EGFR (test code = 11 mL/min/1.73 sq m [facility] [place] [address]-6) NOT ACCURATE CREATININE CLEARANCE IN PREDICTING GLOMERULAR FILTRATION RATE . ESTIMATED GFR I S NOT APPLICABLE FOR DIALYSIS PATIEN TS. BRANDI (test code = BRANDI) Hand I Thermal Cutter ID - BS Lab Interpretation Abnormal (test code = 82077-7) [facility] [id number] 16:18:22 Test Item Value Reference Range Interpretation Comments Protein, Total (test 7.0 See_Comment [Autom ated code = 2885-2) message] The system which generated this result transmit levi reference range : 6.0 - 8.3 gm/dL . The reference range was not u sed to interpret th is result as normal/abnormal . Albumin (test code = 2.7 g/dL 3.5-5.0 L 54095-1) Alkaline Phosphatase 99 U/L 40-150 (test code [...] Calcium (test code = 8.4 mg/dL 8.4-10.2 39882-5) AST (test code = 17 U/L 5-34 1920-8) ALT (test code = 10 U/L 6-55 1742-6) EGFR (test code = 11 mL/min/1.73 sq m [facility] [place] [address]-8) NOT ACCURATE CREATININE CLEARANCE IN PREDICTING GLOMERULAR FILTRATION RATE . ESTIMATED GFR I S NOT APPLICABLE FOR DIALYSIS PATIEN TS. BRANDI (test code = BRANDI) Hand I Thermal Cutter ID - BS Lab Interpretation Abnormal (test code = 23977-3) [facility] [id number] 16:18:22 Test Item Value Reference Range Interpretation Comments Protein, Total (test 7.0 See_Comment [Autom ated code = 2885-2) message] The system which generated this result transmit levi reference range : 6.0 - 8.3 gm/dL . The reference range was not u sed to interpret th is result as normal/abnormal . Albumin (test code = 2.7 g/dL 3.5-5.0 L 35016-2) Alkaline Phosphatase 99 U/L 40-150 (test code [...] Calcium (test code = 8.4 mg/dL 8.4-10.2 70817-4) AST (test code = 17 U/L 34 1920-8) ALT (test code = 10 U/L 655 1742-6) EGFR (test code = 11 mL/min/1.[place] [address]-5) NOT ACCURATE CREATININE CLEARANCE IN PREDICTING GLOMERULAR FILTRATION RATE . ESTIMATED GFR I S NOT APPLICABLE FOR DIALYSIS PATIEN BRANDI (test code = BRANDI) Hand I Thermal Cutter ID - BS Lab Interpretation Abnormal (test code = 85173-1) [facility] [id number] 16:18:22 Test Item Value Reference Range Interpretation Comments Protein, Total (test 7.0 See_Comment [Autom ated code = 2885-2) message] The system which generated this result transmit levi reference range : 6.0 - 8.3 gm/dL . The reference range was not u sed to interpret th is result as normal/abnormal . Albumin (test code = 2.7 g/dL 3.5-5.0 L 07377-6) Alkaline Phosphatase 99 U/L 40-150 (test code [...] Calcium (test code = 8.4 mg/dL 8.4-10.2 00233-8) AST (test code = 17 U/L 0-8) ALT (test code = 10 U/L 2-6) EGFR (test code = 11 mL/min/1.[place] [address]-2) NOT ACCURATE CREATININE CLEARANCE IN PREDICTING GLOMERULAR FILTRATION RATE . ESTIMATED GFR I S NOT APPLICABLE FOR DIALYSIS PATIEN BRANDI (test code = BRANDI) Hand I Thermal Cutter ID - BS Lab Interpretation Abnormal (test code = 52903-8) [facility] [id number] 16:18:22 Test Item Value Reference Range Interpretation Comments Protein, Total (test 7.0 See_Comment [Autom ated code = 2885-2) message] The system which generated this result transmit levi reference range : 6.0 - 8.3 gm/dL . The reference range was not u sed to interpret th is result as normal/abnormal . Albumin (test code = 2.7 g/dL 3.5-5.0 L 05957-8) Alkaline Phosphatase 99 U/L 40-150 (test code [...] Calcium (test code = 8.4 mg/dL 8.4-10.2 02290-0) AST (test code = 17 U/L 1919-8) ALT (test code = 10 U/L 2-6) EGFR (test code = 11 mL/min/1.[place] [address]-4) NOT ACCURATE CREATININE CLEARANCE IN PREDICTING GLOMERULAR FILTRATION RATE . ESTIMATED GFR I S NOT APPLICABLE FOR DIALYSIS PATIEN TS. BRANDI (test code = BRANDI) Hand I Thermal Cutter ID - BS Lab Interpretation Abnormal (test code = 39412-4) [facility] [id number] 16:18:22 Test Item Value Reference Range Interpretation Comments Protein, Total (test 7.0 See_Comment [Autom ated code = 2885-2) message] The system which generated this result transmit levi reference range : 6.0 - 8.3 gm/dL . The reference range was not u sed to interpret th is result as normal/abnormal . Albumin (test code = 2.7 g/dL 3.5-5.0 L 11696-7) Alkaline Phosphatase 99 U/L 40-150 (test code [...] Calcium (test code = 8.4 mg/dL 8.4-10.2 71615-6) AST (test code = 17 U/L 5-34 1920-8) ALT (test code = 10 U/L 6-55 1742-6) EGFR (test code = 11 mL/min/1.[place] [address]-5) NOT ACCURATE CREATININE CLEARANCE IN PREDICTING GLOMERULAR FILTRATION RATE . ESTIMATED GFR I S NOT APPLICABLE FOR DIALYSIS PATIEN TS. BRANDI (test code = BRANDI) Hand I Thermal Cutter ID - BS Lab Interpretation Abnormal (test code = 73730-2) [facility] [id number] 16:18:22 Test Item Value Reference Range Interpretation Comments Protein, Total (test 7.0 See_Comment [Autom ated code = 2885-2) message] The system which generated this result transmit levi reference range : 6.0 - 8.3 gm/dL . The reference range was not u sed to interpret th is result as normal/abnormal . Albumin (test code = 2.7 g/dL 3.5-5.0 L 11838-8) Alkaline Phosphatase 99 U/L 40-150 (test code [...] Calcium (test code = 8.4 mg/dL 8.4-10.2 04262-1) AST (test code = 17 U/L 5-34 1920-8) ALT (test code = 10 U/L 6-55 1742-6) EGFR (test code = 11 mL/min/1.[place] [address]-1) NOT ACCURATE CREATININE CLEARANCE IN PREDICTING GLOMERULAR FILTRATION RATE . ESTIMATED GFR I S NOT APPLICABLE FOR DIALYSIS PATIEN TSEsvin BRANDI (test code = BRANDI) Hand I Thermal Cutter ID - BS Lab Interpretation Abnormal (test code = 50094-0) [facility] [id number] 16:18:22 Test Item Value Reference Range Interpretation Comments Protein, Total (test 7.0 See_Comment [Autom ated code = 2885-2) message] The system which generated this result transmit levi reference range : 6.0 - 8.3 gm/dL . The reference range was not u sed to interpret th is result as normal/abnormal . Albumin (test code = 2.7 g/dL 3.5-5.0 L 77365-0) Alkaline Phosphatase 99 U/L 40-150 (test code [...] (test code = 109 mg/dL 70-105 H 234-7) Calcium (test code = 8.4 mg/dL 8.4-10.2 95027-6) AST (test code = 17 U/L 5-34 192-8) ALT (test code = 10 U/L 6-55 1741-6) EGFR (test code = 11 mL/min/1.[place] [address]-6) NOT ACCURATE CREATININE CLEARANCE IN PREDICTING GLOMERULAR FILTRATION RATE . ESTIMATED GFR I S NOT APPLICABLE FOR DIALYSIS PATIEN BRANDI (test code = BRANDI) Hand I Thermal Cutter ID - BS Lab Interpretation Abnormal (test code = 54319-4) [facility] [id number] 16:18:22 Test Item Value Reference Range Interpretation Comments Protein, Total (test 7.0 See_Comment [Autom ated code = 2885-2) message] The system which generated this result transmit levi reference range : 6.0 - 8.3 gm/dL . The reference range was not u sed to interpret th is result as normal/abnormal . Albumin (test code = 2.7 g/dL 3.5-5.0 L 14666-3) Alkaline Phosphatase 99 U/L 40-150 (test code [...] Calcium (test code = 8.4 mg/dL 8.4-10.2 58621-2) AST (test code = 17 U/L 5-34 1920-8) ALT (test code = 10 U/L 655 1742-6) EGFR (test code = 11 mL/min/1.[place] [address]-9) NOT ACCURATE CREATININE CLEARANCE IN PREDICTING GLOMERULAR FILTRATION RATE . ESTIMATED GFR I S NOT APPLICABLE FOR DIALYSIS PATIEN TS. BRANDI (test code = BRANDI) Hand I Thermal Cutter ID - BS Lab Interpretation Abnormal (test code = 20337-1) [facility] [id number] 16:18:22 Test Item Value Reference Range Interpretation Comments Protein, Total (test 7.0 See_Comment [Autom ated code = 2885-2) message] The system which generated this result transmit levi reference range : 6.0 - 8.3 gm/dL . The reference range was not u sed to interpret th is result as normal/abnormal . Albumin (test code = 2.7 g/dL 3.5-5.0 L 18508-9) Alkaline Phosphatase 99 U/L 40-150 (test code [...] Calcium (test code = 8.4 mg/dL 8.4-10.2 13065-4) AST (test code = 17 U/L -34 1920-8) ALT (test code = 10 U/L 6-55 1742-6) EGFR (test code = 11 mL/min/1.[place] [address]-9) NOT ACCURATE CREATININE CLEARANCE IN PREDICTING GLOMERULAR FILTRATION RATE . ESTIMATED GFR I S NOT APPLICABLE FOR DIALYSIS PATIEN TSEsvin BRANDI (test code = BRANDI) Hand I Thermal Cutter ID - BS Lab Interpretation Abnormal (test code = 35180-4) [facility] [id number] 16:18:22 Test Item Value Reference Range Interpretation Comments Protein, Total (test 7.0 See_Comment [Autom ated code = 2885-2) message] The system which generated this result transmit levi reference range : 6.0 - 8.3 gm/dL . The reference range was not u sed to interpret th is result as normal/abnormal . Albumin (test code = 2.7 g/dL 3.5-5.0 L 61795-6) Alkaline Phosphatase 99 U/L 40-150 (test code [...] Calcium (test code = 8.4 mg/dL 8.4-10.2 27273-4) AST (test code = 17 U/L -34 0-8) ALT (test code = 10 U/L 6-55 1742-6) EGFR (test code = 11 mL/min/1.[place] [address]-5) NOT ACCURATE CREATININE CLEARANCE IN PREDICTING GLOMERULAR FILTRATION RATE . ESTIMATED GFR I S NOT APPLICABLE FOR DIALYSIS PATIEN BRANDI (test code = BRANDI) Hand I Thermal Cutter ID - BS Lab Interpretation Abnormal (test code = 27648-2) [facility] [id number] 16:18:22 Test Item Value Reference Range Interpretation Comments Protein, Total (test 7.0 See_Comment [Autom ated code = 2885-2) message] The system which generated this result transmit levi reference range : 6.0 - 8.3 gm/dL . The reference range was not u sed to interpret th is result as normal/abnormal . Albumin (test code = 2.7 g/dL 3.5-5.0 L 86288-1) Alkaline Phosphatase 99 U/L 40-150 (test code [...] Calcium (test code = 8.4 mg/dL 8.4-10.2 95986-2) AST (test code = 17 U/L 5-34 1920-8) ALT (test code = 10 U/L 1742-6) EGFR (test code = 11 mL/min/1.[place] [address]-9) NOT ACCURATE CREATININE CLEARANCE IN PREDICTING GLOMERULAR FILTRATION RATE . ESTIMATED GFR I S NOT APPLICABLE FOR DIALYSIS PATIEN BRANDI (test code = BRANDI) Hand I Thermal Cutter ID - BS Lab Interpretation Abnormal (test code = 78833-6) [facility] [id number] 16:18:22 Test Item Value Reference Range Interpretation [...] S NOT APPLICABLE FOR DIALYSIS PATIEN TS. Hand I Thermal Cutter ID - [id number] 16:17:20 Test Item Value Reference Range Interpretation Comments MAGNESIUM (BEAKER) (test code = 1.8 mg/dL 1.6-2.6 627) Hand I Thermal Cutter ID - [id number] 16:10:37 Test Item Value Reference Range Interpretation Comments PARTIAL THROMBOPLASTIN TIME 34.5 seconds 22.5-36.0 (BEAKER) (test code = 760) PROTHROMBIN TIME/[id number] 16:10:03 Test Item Value Reference Range Interpretation Comments PROTIME (BEAKER) 17.2 seconds 11.9-14.2 H (test code = 759) INR (BEAKER) (test 1.43 See_Comment [Automat ed message] code = 370) The system [employer] generated this result transmitted ref erence range: <=5.90. The reference range was not used to int erpret this result as normal/abnormal . 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 [facility] : 1955 Sex: FFINAL REPORT DATE OF PROCEDURE: 06/16/2021 SURGEON: Mili Kent MD EVENTS ASSOCIATE: Eloy Portillo MD; Alisa Monae MD PREOPERATIVE DIAGNOSIS: Subarachnoid hemorrhage POST OPERATIVE DIAGNOSIS: Nonaneurysmal subarachnoid hemorrhage PROCEDURE: Diagnostic cerebral injury ANESTHESIA: Monitored anesthesia ESTIMATED BLOOD LOSS: Minimal COMPLICATIONS: None Vessels catheterized:Right common femoral arteryRight common carotid artery, cervicalRight common carotid, cerebralLeft common carotid artery, cervicalLeft common carotid, cerebralLeft vertebral artery *FEMORAL*5F sheathBentson WireVertebral CatheterTerumo Otto wireMynx Closure Device INDICATIONS: The patient is [...] workstation. These images were reviewed by Mili Ketn separately. The catheter was removed. The sheath [...] arteries are patent. There is a right TESTER/LIFT TRUCKER variant anatomy. No evidence of aneurysm, vascular [...] cerebral artery is diminutive in size given TESTER/LIFT TRUCKER anatomy and the the left TESTER/LIFT TRUCKER is normal in caliber and contour. No [...] MDReport Verified Date/Time: 06/17/2021 09:13:43 Reading Location: [place] [address] Neuro Angio Reading Room BASIC METABOLIC [id number] 05:09:41 Test Item Value Reference Range Interpretation [...] S NOT APPLICABLE FOR DIALYSIS PATIEN TS. Hand I Thermal Cutter ID - HIEN [id number] 05:07:06 Test Item Value Reference Range Interpretation Comments MAGNESIUM (BEAKER) (test code = 2.1 mg/dL 1.6-2.6 627) Hand I Thermal Cutter ID - HIEN [id number] 05:07:06 Test Item Value Reference Range Interpretation Comments PHOSPHORUS (BEAKER) (test code = 5.7 mg/dL 2.3-4.7 H 604) Hand I Thermal Cutter ID - HIEN MCBC W/PLT COUNT & AUTO [id number] 04:38:56 Test Item Value Reference Range Interpretation [...] PERCENT (BEAKER) (test code = 2801) POCT-GLUCOSE [id number] 00:10:32 Test Item Value Reference Range Interpretation Comments POC-GLUCOSE METER 221 mg/dL 70-110 H : TESTED A T [facility] 6720 (BEAKER) (test code = [facility], 1538) [address]: Hand I Thermal Cutter/Techni kelle ID = [id number] for ELROY QUINTERO SHAHLA POCT-GLUCOSE [id number] 18:11:32 Test Item Value Reference Range Interpretation Comments POC-GLUCOSE METER 170 mg/dL 70-110 H : TESTED A T [facility] 6720 (BEAKER) (test code = [facility], 1538) [address]: Hand I Thermal Cutter/Techni kelle ID = [id number] for Onelia Lorenz Blood [id number] 14:00:39 Test Item Value Reference Range Interpretation Comments Result (test code = No growth in 5 days 6463-4) [facility] [id number] 14:00:39 Test Item Value Reference Range Interpretation Comments Result (test code = No growth in 5 days 6463-4) [facility]2022-03-15 14:00:39 Test Item Value Reference Range Interpretation Comments Result (test code = No growth in 5 days 6463-4) [facility]2022-03-15 14:00:39 Test Item Value Reference Range Interpretation Comments Result (test code = No growth in 5 days 6463-4) [facility]2022-03-15 14:00:39 Test Item Value Reference Range Interpretation Comments Result (test code = No growth in 5 days 6463-4) [facility]2022-03-15 14:00:39 Test Item Value Reference Range Interpretation Comments Result (test code = No growth in 5 days 6463-4) [facility]2022-03-15 14:00:39 Test Item Value Reference Range Interpretation Comments Result (test code = No growth in 5 days 6463-4) [facility]2022-03-15 14:00:39 Test Item Value Reference Range Interpretation Comments Result (test code = No growth in 5 days 6463-4) [facility]2022-03-15 14:00:39 Test Item Value Reference Range Interpretation Comments Result (test code = No growth in 5 days 6463-4) [facility]2022-03-15 14:00:39 Test Item Value Reference Range Interpretation Comments Result (test code = No growth in 5 days 6463-4) [facility]2022-03-15 14:00:39 Test Item Value Reference Range Interpretation Comments Result (test code = No growth in 5 days 6463-4) [facility]2022-03-15 14:00:39 Test Item Value Reference Range Interpretation Comments Result (test code = No growth in 5 days 6463-4) [facility]2022-03-15 14:00:39 Test Item Value Reference Range Interpretation Comments Result (test code = No growth in 5 days 6463-4) [facility]2022-03-15 14:00:39 Test Item Value Reference Range Interpretation Comments CULTURE (BEAKER) (test No growth in 5 days code = 1095) MR BRAIN, WITHOUT [id number] 13:02:00Pt has [place] [employer] ESSENTIO MRI L111/ [id number] Unlisted Reason for Exam - Click Yes and Enter Reason Below- >No [place] the patient have an implanted electronic device?->Yes [place] [employer] ESSENTIO MRI L111/ [id number] [facility] : 1955 Sex: FFINAL REPORT [...] MDReport Verified Date/Time: 06/16/2021 13:02:07 Reading Location: [facility] [id number] Neuro Reading Room D [id number] 08:00:27 Test Item Value Reference Range Interpretation Comments CULTURE (BEAKER) (test No growth in 5 days code = 1095) POCT-GLUCOSE [id number] 07:30:10 Test Item Value Reference Range Interpretation Comments POC-GLUCOSE METER 159 mg/dL 70-110 H : TESTED [facility] 6720 (BEAKER) (test code = [place], 1538) [address]: Hand I Thermal Cutter/Techni kelle ID = [id number] for An Onelia ramirez BASIC METABOLIC [id number] 05:42:18 Test Item Value Reference Range Interpretation [...] S NOT APPLICABLE FOR DIALYSIS PATIEN TS. Hand I Thermal Cutter ID - RAKAN [id number] 05:35:31 Test Item Value Reference Range Interpretation Comments MAGNESIUM (BEAKER) (test code = 2.1 mg/dL 1.6-2.6 627) Hand I Thermal Cutter ID - RAKAN [id number] 05:35:31 Test Item Value Reference Range Interpretation Comments PHOSPHORUS (BEAKER) (test code = 4.5 mg/dL 2.3-4.7 604) Hand I Thermal Cutter ID Bassam [facility] W/PLT COUNT & AUTO [id number] 04:43:33 Test Item Value Reference Range Interpretation [...] PERCENT (BEAKER) (test code = 2801) BLOOD [id number] 00:00:28 Test Item Value Reference Range Interpretation Comments CULTURE (BEAKER) (test No growth in 5 days code = 1095) The specimen volume collected for this blood culture was below the optimum (10 mL per bottle or 20 mL total). Use of lower volumes may adversely affect recovery and/or detection times of some organisms.POCT-GLUCOSE [id number] 21:39:58 Test Item Value Reference Range Interpretation Comments POC-GLUCOSE METER 173 mg/dL 70-110 H : Notified RN/MD: (AKASH) (test code = TESTED AT [facility] 6720 1538) [facility], [address]: Hand I Thermal Cutter/Techni kelle ID = [id number] for DE EMANUEL CHISHOLM Hepatic function [id number] 15:52:11 Test Item Value Reference Range Interpretation Comments Protein, Total (test 6.8 See_Comment [Autom ated code = 2885-2) message] The system which generated this result transmit levi reference range : 6.0 - 8.3 gm/dL . The reference range was not u sed to interpret th is result as normal/abnormal . Albumin (test code = 2.6 g/dL 3.5-5.0 L 36076-3) Total Bilirubin (test 0.3 mg/dL 0.2-1.2 code = 1974-) Bilirubin, Direct 0.2 mg/dL 0.1-0.5 (test code = 1967-7) Alkaline Phosphatase 90 U/L 40-150 (test code = 6768-6) AST (test code = 17 U/L 5-34 1920-8) ALT (test code = 11 U/L 6-55 1742-6) BRANDI (test code = BRANDI) Hand I Thermal Cutter ID - PIAYA L Lab Interpretation Abnormal (test code = 81770-4) [facility] [id number] 15:52:11 Test Item Value Reference Range Interpretation Comments Protein, Total (test 6.8 See_Comment [Autom ated code = 2885-2) message] The system which generated this result transmit levi reference range : 6.0 - 8.3 gm/dL . The reference range was not u sed to interpret th is result as normal/abnormal . Albumin (test code = 2.6 g/dL 3.5-5.0 L 00521-8) Total Bilirubin (test 0.3 mg/dL 0.2-1.2 code = 1974-05) Bilirubin, Direct 0.2 mg/dL 0.1-0.5 (test code = 1967-10) Alkaline Phosphatase 90 U/L 40-150 (test code = 6768-6) AST (test code = 17 U/L 34 192-8) ALT (test code = 11 U/L 1742-6) BRANDI (test code = BRANDI) Hand I Thermal Cutter ID - PIAYA L Lab Interpretation Abnormal (test code = 40608-0) [facility] [id number] 15:52:11 Test Item Value Reference Range Interpretation Comments Protein, Total (test 6.8 See_Comment [Autom ated code = 2885-2) message] The system which generated this result transmit levi reference range : 6.0 - 8.3 gm/dL . The reference range was not u sed to interpret th is result as normal/abnormal . Albumin (test code = 2.6 g/dL 3.5-5.0 L 00870-9) Total Bilirubin (test 0.3 mg/dL 0.2-1.2 code = 1974-05) Bilirubin, Direct 0.2 mg/dL 0.1-0.5 (test code = 1967-10) Alkaline Phosphatase 90 U/L 40-150 (test code = 6768-6) AST (test code = 17 U/L 1919-8) ALT (test code = 11 U/L 1742-6) BRANDI (test code = BRANDI) Hand I Thermal Cutter ID - PIAYA L Lab Interpretation Abnormal (test code = 87379-6) [facility] [id number] 15:52:11 Test Item Value Reference Range Interpretation Comments Protein, Total (test 6.8 See_Comment [Autom ated code = 2885-2) message] The system which generated this result transmit levi reference range : 6.0 - 8.3 gm/dL . The reference range was not u sed to interpret th is result as normal/abnormal . Albumin (test code = 2.6 g/dL 3.5-5.0 L 97540-8) Total Bilirubin (test 0.3 mg/dL 0.2-1.2 code = 1974-05) Bilirubin, Direct 0.2 mg/dL 0.1-0.5 (test code = 1967-10) Alkaline Phosphatase 90 U/L 40-150 (test code = 6768-6) AST (test code = 17 U/L 534 1920-8) ALT (test code = 11 U/L 1742-6) BRANDI (test code = BRANDI) Hand I Thermal Cutter ID - PIAYA L Lab Interpretation Abnormal (test code = 06029-3) [facility] [id number] 15:52:11 Test Item Value Reference Range Interpretation Comments Protein, Total (test 6.8 See_Comment [Autom ated code = 2885-2) message] The system which generated this result transmit levi reference range : 6.0 - 8.3 gm/dL . The reference range was not u sed to interpret th is result as normal/abnormal . Albumin (test code = 2.6 g/dL 3.5-5.0 L 61834-2) Total Bilirubin (test 0.3 mg/dL 0.2-1.2 code = 1974-05) Bilirubin, Direct 0.2 mg/dL 0.1-0.5 (test code = 1967-10) Alkaline Phosphatase 90 U/L 40-150 (test code = 6768-6) AST (test code = 17 U/L 34 1920-8) ALT (test code = 11 U/L 1742-6) BRANDI (test code = BRANDI) Hand I Thermal Cutter ID - PIAYA L Lab Interpretation Abnormal (test code = 48707-8) [facility] [id number] 15:52:11 Test Item Value Reference Range Interpretation Comments Protein, Total (test 6.8 See_Comment [Autom ated code = 2885-2) message] The system which generated this result transmit levi reference range : 6.0 - 8.3 gm/dL . The reference range was not u sed to interpret th is result as normal/abnormal . Albumin (test code = 2.6 g/dL 3.5-5.0 L 91263-1) Total Bilirubin (test 0.3 mg/dL 0.2-1.2 code = 1974-) Bilirubin, Direct 0.2 mg/dL 0.1-0.5 (test code = 1967-10) Alkaline Phosphatase 90 U/L 40-150 (test code = 6768-6) AST (test code = 17 U/L 34 1920-8) ALT (test code = 11 U/L 655 1742-6) BRANDI (test code = BRANDI) Hand I Thermal Cutter ID - PIAYA L Lab Interpretation Abnormal (test code = 08648-2) [facility] [id number] 15:52:11 Test Item Value Reference Range Interpretation Comments Protein, Total (test 6.8 See_Comment [Autom ated code = 2885-2) message] The system which generated this result transmit levi reference range : 6.0 - 8.3 gm/dL . The reference range was not u sed to interpret th is result as normal/abnormal . Albumin (test code = 2.6 g/dL 3.5-5.0 L 45850-6) Total Bilirubin (test 0.3 mg/dL 0.2-1.2 code = 1974-05) Bilirubin, Direct 0.2 mg/dL 0.1-0.5 (test code = 1967-) Alkaline Phosphatase 90 U/L 40-150 (test code = 6768-6) AST (test code = 17 U/L 34 1919-8) ALT (test code = 11 U/L 1742-6) BRANDI (test code = BRANDI) Hand I Thermal Cutter ID - PIAYA L Lab Interpretation Abnormal (test code = 38727-3) [facility] [id number] 15:52:11 Test Item Value Reference Range Interpretation Comments Protein, Total (test 6.8 See_Comment [Autom ated code = 2885-2) message] The system which generated this result transmit levi reference range : 6.0 - 8.3 gm/dL . The reference range was not u sed to interpret th is result as normal/abnormal . Albumin (test code = 2.6 g/dL 3.5-5.0 L 22141-3) Total Bilirubin (test 0.3 mg/dL 0.2-1.2 code = 1974-05) Bilirubin, Direct 0.2 mg/dL 0.1-0.5 (test code = 1967-) Alkaline Phosphatase 90 U/L 40-150 (test code = 6768-6) AST (test code = 17 U/L 5-34 1920-8) ALT (test code = 11 U/L 6-55 1742-6) BRANDI (test code = BRANDI) Hand I Thermal Cutter ID - PIAYA L Lab Interpretation Abnormal (test code = 55637-9) [facility] [id number] 15:52:11 Test Item Value Reference Range Interpretation Comments Protein, Total (test 6.8 See_Comment [Autom ated code = 2885-2) message] The system which generated this result transmit levi reference range : 6.0 - 8.3 gm/dL . The reference range was not u sed to interpret th is result as normal/abnormal . Albumin (test code = 2.6 g/dL 3.5-5.0 L 37366-0) Total Bilirubin (test 0.3 mg/dL 0.2-1.2 code = 1974-05) Bilirubin, Direct 0.2 mg/dL 0.1-0.5 (test code = 1967-10) Alkaline Phosphatase 90 U/L 40-150 (test code = 6768-6) AST (test code = 17 U/L 1919-8) ALT (test code = 11 U/L 1742-6) BRANDI (test code = BRANDI) Hand I Thermal Cutter ID - PIAYA L Lab Interpretation Abnormal (test code = 58246-2) [facility] [id number] 15:52:11 Test Item Value Reference Range Interpretation Comments Protein, Total (test 6.8 See_Comment [Autom ated code = 2885-2) message] The system which generated this result transmit levi reference range : 6.0 - 8.3 gm/dL . The reference range was not u sed to interpret th is result as normal/abnormal . Albumin (test code = 2.6 g/dL 3.5-5.0 L 08570-4) Total Bilirubin (test 0.3 mg/dL 0.2-1.2 code = 1974-) Bilirubin, Direct 0.2 mg/dL 0.1-0.5 (test code = 1967-) Alkaline Phosphatase 90 U/L 40-150 (test code = 6768-6) AST (test code = 17 U/L 5-34 1920-8) ALT (test code = 11 U/L 6-55 1742-6) BRANDI (test code = BRANDI) Hand I Thermal Cutter ID - PIAYA L Lab Interpretation Abnormal (test code = 60244-7) [facility] [id number] 15:52:11 Test Item Value Reference Range Interpretation Comments Protein, Total (test 6.8 See_Comment [Autom ated code = 2885-2) message] The system which generated this result transmit levi reference range : 6.0 - 8.3 gm/dL . The reference range was not u sed to interpret th is result as normal/abnormal . Albumin (test code = 2.6 g/dL 3.5-5.0 L 68665-3) Total Bilirubin (test 0.3 mg/dL 0.2-1.2 code = 1974-) Bilirubin, Direct 0.2 mg/dL 0.1-0.5 (test code = 1967-) Alkaline Phosphatase 90 U/L 40-150 (test code = 6768-6) AST (test code = 17 U/L 5-34 1920-8) ALT (test code = 11 U/L 6-55 1742-6) BRANDI (test code = BRANDI) Hand I Thermal Cutter ID - PIAYA L Lab Interpretation Abnormal (test code = 36356-1) [facility] [id number] 15:52:11 Test Item Value Reference Range Interpretation Comments Protein, Total (test 6.8 See_Comment [Autom ated code = 2885-2) message] The system which generated this result transmit levi reference range : 6.0 - 8.3 gm/dL . The reference range was not u sed to interpret th is result as normal/abnormal . Albumin (test code = 2.6 g/dL 3.5-5.0 L 58584-8) Total Bilirubin (test 0.3 mg/dL 0.2-1.2 code = 1974-) Bilirubin, Direct 0.2 mg/dL 0.1-0.5 (test code = 1967-) Alkaline Phosphatase 90 U/L 40-150 (test code = 6768-6) AST (test code = 17 U/L 5-34 1920-8) ALT (test code = 11 U/L 6-55 1742-6) BRANDI (test code = BRANDI) Hand I Thermal Cutter ID - PIAYA L Lab Interpretation Abnormal (test code = 87811-1) [facility] [id number] 15:52:11 Test Item Value Reference Range Interpretation Comments Protein, Total (test 6.8 See_Comment [Autom ated code = 2885-2) message] The system which generated this result transmit levi reference range : 6.0 - 8.3 gm/dL . The reference range was not u sed to interpret th is result as normal/abnormal . Albumin (test code = 2.6 g/dL 3.5-5.0 L 69922-4) Total Bilirubin (test 0.3 mg/dL 0.2-1.2 code = 1975-2) Bilirubin, Direct 0.2 mg/dL 0.1-0.5 (test code = 1968-7) Alkaline Phosphatase 90 U/L 40-150 (test code = 6768-6) AST (test code = 17 U/L 5-34 1920-8) ALT (test code = 11 U/L 6-55 1742-6) BRANDI (test code = BRANDI) Hand I Thermal Cutter ID - LIANA L Lab Interpretation Abnormal (test code = 33063-8) [facility] [id number] 15:52:11 Test Item Value Reference Range Interpretation [...] (test code = 11 U/L 6-55 347) Hand I Thermal Cutter ID - LIANA LHeparin [id number] 12:21:31 Test Item Value Reference Range Interpretation Comments Heparin Ab (test code Negative Negative = 3267-2) Heparin Antibody 0.247 <0.400 Optical Density (test code = 2659) 4T Total Score (test 4 code = 2661) BRANDI (test code = BRANDI) Probability of HIT based on scoring system: 6-8 = High probability; 4-5 = intermediate probability; 0-3 = low probability [facility] [id number] 12:21:31 Test Item Value Reference Range Interpretation Comments Heparin Ab (test code Negative Negative = 3267-2) Heparin Antibody 0.247 <0.400 Optical Density (test code = 2659) 4T Total Score (test 4 code = 2661) BRANDI (test code = BRANDI) Probability of HIT based on scoring system: 6-8 = High probability; 4-5 = intermediate probability; 0-3 = low probability [facility] [id number] 12:21:31 Test Item Value Reference Range Interpretation Comments Heparin Ab (test code Negative Negative = 3267-2) Heparin Antibody 0.247 <0.400 Optical Density (test code = 2659) 4T Total Score (test 4 code = 2661) BRANDI (test code = BRANDI) Probability of HIT based on scoring system: 6-8 = High probability; 4-5 = intermediate probability; 0-3 = low probability [facility] [id number] 12:21:31 Test Item Value Reference Range Interpretation Comments Heparin Ab (test code Negative Negative = 3267-2) Heparin Antibody 0.247 <0.400 Optical Density (test code = 2659) 4T Total Score (test 4 code = 2661) BRANDI (test code = BRANDI) Probability of HIT based on scoring system: 6-8 = High probability; 4-5 = intermediate probability; 0-3 = low probability [facility] [id number] 12:21:31 Test Item Value Reference Range Interpretation Comments Heparin Ab (test code Negative Negative = 3267-2) Heparin Antibody 0.247 <0.400 Optical Density (test code = 2659) 4T Total Score (test 4 code = 2661) BRANDI (test code = BRANDI) Probability of HIT based on scoring system: 6-8 = High probability; 4-5 = intermediate probability; 0-3 = low probability [facility] [id number] 12:21:31 Test Item Value Reference Range Interpretation Comments Heparin Ab (test code Negative Negative = 3267-2) Heparin Antibody 0.247 <0.400 Optical Density (test code = 2659) 4T Total Score (test 4 code = 2661) BRANDI (test code = BRANDI) Probability of HIT based on scoring system: 6-8 = High probability; 4-5 = intermediate probability; 0-3 = low probability [facility] [id number] 12:21:31 Test Item Value Reference Range Interpretation Comments Heparin Ab (test code Negative Negative = 3267-2) Heparin Antibody 0.247 <0.400 Optical Density (test code = 2659) 4T Total Score (test 4 code = 2661) BRANDI (test code = BRANDI) Probability of HIT based on scoring system: 6-8 = High probability; 4-5 = intermediate probability; 0-3 = low [facility] [id number] 12:21:31 Test Item Value Reference Range Interpretation Comments Heparin Ab (test code Negative Negative = 3267-2) Heparin Antibody 0.247 <0.400 Optical Density (test code = 2659) 4T Total Score (test 4 code = 2661) BRANDI (test code = BRANDI) Probability of HIT based on scoring system: 6-8 = High probability; 4-5 = intermediate probability; 0-3 = low [facility] [id number] 12:21:31 Test Item Value Reference Range Interpretation Comments Heparin Ab (test code Negative Negative = 3267-2) Heparin Antibody 0.247 <0.400 Optical Density (test code = 2659) 4T Total Score (test 4 code = 2661) BRANDI (test code = BRANDI) Probability of HIT based on scoring system: 6-8 = High probability; 4-5 = intermediate probability; 0-3 = low probability [facility] [id number] 12:21:31 Test Item Value Reference Range Interpretation Comments Heparin Ab (test code Negative Negative = 3267-2) Heparin Antibody 0.247 <0.400 Optical Density (test code = 2659) 4T Total Score (test 4 code = 2661) BRANDI (test code = BRANDI) Probability of HIT based on scoring system: 6-8 = High probability; 4-5 = intermediate probability; 0-3 = low probability [facility] [id number] 12:21:31 Test Item Value Reference Range Interpretation Comments Heparin Ab (test code Negative Negative = 3267-2) Heparin Antibody 0.247 <0.400 Optical Density (test code = 2659) 4T Total Score (test 4 code = 2661) BRANDI (test code = BRANDI) Probability of HIT based on scoring system: 6-8 = High probability; 4-5 = intermediate probability; 0-3 = low probability [facility] [id number] 12:21:31 Test Item Value Reference Range Interpretation Comments Heparin Ab (test code Negative Negative = 3267-2) Heparin Antibody 0.247 <0.400 Optical Density (test code = 2659) 4T Total Score (test 4 code = 2661) BRANDI (test code = BRANDI) Probability of HIT based on scoring system: 6-8 = High probability; 4-5 = intermediate probability; 0-3 = low probability [facility] [id number] 12:21:31 Test Item Value Reference Range Interpretation Comments Heparin Ab (test code Negative Negative = 3267-2) Heparin Antibody 0.247 <0.400 Optical Density (test code = 2659) 4T Total Score (test 4 code = 2661) BRANDI (test code = BRANDI) Probability of HIT based on scoring system: 6-8 = High probability; 4-5 = intermediate probability; 0-3 = low probability [facility] [id number] 12:21:31 Test Item Value Reference Range Interpretation Comments HEPARIN ANTIBODY (BEAKER) (test code Negative Negative = 646) HEPARIN ANTIBODY OD (BEAKER) (test 0.247 <0.400 code = 2659) 4T TOTAL SCORE (BEAKER) (test code = 4 2661) Probability of HIT based on scoring system: 6-8 = High probability; 4-5 = intermediate probability; 0-3 = low probabilityABORH, [id number] 08:07:00 Test Item Value Reference Range Interpretation Comments ABO Grouping (test code = 2588) O Rh Factor (test code = 2589) POS [facility], [id number] 08:07:00 Test Item Value Reference Range Interpretation Comments ABO Grouping (test code = 2588) O Rh Factor (test code = 2589) POS [facility], [id number] 08:07:00 Test Item Value Reference Range Interpretation Comments ABO Grouping (test code = 2588) O Rh Factor (test code = 2589) [facility], [id number] 08:07:00 Test Item Value Reference Range Interpretation Comments ABO Grouping (test code = 2588) O Rh Factor (test code = 2589) [facility], [id number] 08:07:00 Test Item Value Reference Range Interpretation Comments ABO Grouping (test code = 2588) O Rh Factor (test code = 2589) [facility], [id number] 08:07:00 Test Item Value Reference Range Interpretation Comments ABO Grouping (test code = 2588) O Rh Factor (test code = 2589) [facility], [id number] 08:07:00 Test Item Value Reference Range Interpretation Comments ABO Grouping (test code = 2588) O Rh Factor (test code = 2589) [facility], [id number] 08:07:00 Test Item Value Reference Range Interpretation Comments ABO Grouping (test code = 2588) O Rh Factor (test code = 2589) [facility], [id number] 08:07:00 Test Item Value Reference Range Interpretation Comments ABO Grouping (test code = 2588) O Rh Factor (test code = 2589) [facility], [id number] 08:07:00 Test Item Value Reference Range Interpretation Comments ABO Grouping (test code = 2588) O Rh Factor (test code = 2589) [facility], [id number] 08:07:00 Test Item Value Reference Range Interpretation Comments ABO Grouping (test code = 2588) O Rh Factor (test code = 2589) [facility], [id number] 08:07:00 Test Item Value Reference Range Interpretation Comments ABO Grouping (test code = 2588) O Rh Factor (test code = 2589) [facility], [id number] 08:07:00 Test Item Value Reference Range Interpretation Comments ABO Grouping (test code = 2588) O Rh Factor (test code = 2589) [facility] [id number] 05:19:52 Test Item Value Reference Range Interpretation [...] S NOT APPLICABLE FOR DIALYSIS PATIEN TS. Hand I Thermal Cutter ID - LIANA [id number] 05:09:04 Test Item Value Reference Range Interpretation Comments PHOSPHORUS (BEAKER) (test code = 4.1 mg/dL 2.3-4.7 604) Hand I Thermal Cutter ID - LIANA [id number] 05:09:03 Test Item Value Reference Range Interpretation Comments MAGNESIUM (BEAKER) (test code = 2.0 mg/dL 1.6-2.6 627) Hand I Thermal Cutter ID - LIANA LPT/[id number] 04:53:34 Test Item Value Reference Interpretation Comments [...] PTT (test code = 32.5 See_Comment [Automated 91369-2) message] The system which generated this result [...] valves. Lab Interpretation Normal (test code = 10807-8) [id number] 04:[facility]34 Test Item Value Reference Interpretation Comments [...] PTT (test code = 32.5 See_Comment [Automated 52619-3) message] The system which generated this result [...] valves. Lab Interpretation Normal (test code = 43226-2) [id number] 04:53:34 Test Item Value Reference Interpretation Comments [...] PTT (test code = 32.5 See_Comment [Automated 81257-9) message] The system which generated this result [...] valves. Lab Interpretation Normal (test code = 59597-6) [id number] 04:53:34 Test Item Value Reference Interpretation Comments [...] PTT (test code = 32.5 See_Comment [Automated 62173-2) message] The system which generated this result [...] valves. Lab Interpretation Normal (test code = 95687-8) [id number] 04:53:34 Test Item Value Reference Interpretation Comments [...] PTT (test code = 32.5 See_Comment [Automated 74380-7) message] The system which generated this result [...] valves. Lab Interpretation Normal (test code = 90981-5) [id number] 04:53:34 Test Item Value Reference Interpretation Comments [...] PTT (test code = 32.5 See_Comment [Automated 52959-3) message] The system which generated this result [...] valves. Lab Interpretation Normal (test code = 16512-0) [id number] 04:53:34 Test Item Value Reference Interpretation Comments [...] PTT (test code = 32.5 See_Comment [Automated 48149-4) message] The system which generated this result [...] valves. Lab Interpretation Normal (test code = 18341-1) [id number] 04:53:34 Test Item Value Reference Interpretation Comments [...] PTT (test code = 32.5 See_Comment [Automated 15074-9) message] The system which generated this result [...] valves. Lab Interpretation Normal (test code = 85715-5) [id number] 04:53:34 Test Item Value Reference Interpretation Comments [...] PTT (test code = 32.5 See_Comment [Automated 16880-8) message] The system which generated this result [...] valves. Lab Interpretation Normal (test code = 37242-9) [facility][id number] 04:53:34 Test Item Value Reference Interpretation Comments [...] PTT (test code = 32.5 See_Comment [Automated 80027-7) message] The system which generated this result [...] valves. Lab Interpretation Normal (test code = 44014-2) [id number] 04:53:34 Test Item Value Reference Interpretation Comments [...] PTT (test code = 32.5 See_Comment [Automated 89962-6) message] The system which generated this result [...] valves. Lab Interpretation Normal (test code = 45891-9) [facility][id number] 04:53:34 Test Item Value Reference Interpretation Comments [...] PTT (test code = 32.5 See_Comment [Automated 24315-3) message] The system which generated this result [...] valves. Lab Interpretation Normal (test code = 24870-3) [id number] 04:53:34 Test Item Value Reference Interpretation Comments Range Protime (test code = 13.7 See_Comment [Autom ated 5902-2) message] The system which generated this result transmitted reference range : 11.9 - 14.2 seconds. The reference range was not used to interpret this result as normal/abnormal . INR (test code = 1.07 See_Comment [Automated 4431-6) message] The system which generated this result transmitted reference range : <=5.90. The reference range was not used to interpret this result as normal/abnormal . PTT (test code = 32.5 See_Comment [Automated 33487-0) message] The system which generated this result [...] valves. Lab Interpretation Normal (test code = 67357-1) [id number] 04:53:34 Test Item Value Reference Range Interpretation [...] mechanical heart valves.CBC W/PLT COUNT & AUTO [id number] 04:46:52 Test Item Value Reference Range Interpretation [...] PERCENT (BEAKER) (test code = 2801) POCT-GLUCOSE [id number] 11:21:11 Test Item Value Reference Range Interpretation Comments POC-GLUCOSE METER 204 mg/dL 70-110 H : TESTED A T [facility] 6720 (BEAKER) (test code = [facility], 1538) 80289: Hand I Thermal Cutter/Techni kelle ID = [id number] for Ag Meeta moody POCT-GLUCOSE [id number] 07:42:50 Test Item Value Reference Range Interpretation Comments POC-GLUCOSE METER 226 mg/dL 70-110 H : TESTED A T [facility] 6720 (BEAKER) (test code = [facility], 1538) 11702: Hand I Thermal Cutter/Techni kelle ID = [id number] for Ag Meeta moody BASIC METABOLIC [id number] 05:13:30 Test Item Value Reference Range Interpretation [...] S NOT APPLICABLE FOR DIALYSIS PATIEN TS. Hand I Thermal Cutter ID - LIANA [id number] 05:11:53 Test Item Value Reference Range Interpretation Comments PHOSPHORUS (BEAKER) (test code = 3.3 mg/dL 2.3-4.7 604) Hand I Thermal Cutter ID - LIANA [id number] 05:11:52 Test Item Value Reference Range Interpretation Comments MAGNESIUM (BEAKER) (test code = 2.0 mg/dL 1.6-2.6 627) Hand I Thermal Cutter ID - LIANA LCBC W/PLT COUNT & AUTO [id number] 04:23:17 Test Item Value Reference Range Interpretation [...] PERCENT (BEAKER) (test code = 2801) POCT-GLUCOSE [id number] 17:21:48 Test Item Value Reference Range Interpretation Comments POC-GLUCOSE METER 209 mg/dL 70-110 H : TESTED A T [facility] 6720 (BEAKER) (test code = [facility], 1538) 32625: Hand I Thermal Cutter/Techni kelle ID = [id number] for PADMINI ALMANZAR POCT-GLUCOSE [id number] 12:56:45 Test Item Value Reference Range Interpretation Comments POC-GLUCOSE METER 81 mg/dL 70-110 : TESTED A T [facility] 6720 (BEAKER) (test code = [facility], 1538) 17795: Hand I Thermal Cutter/Techni kelle ID = [id number] for PADMINI GRAY Owmqhbzj2662-96-72 09:21:04 Test Item Value Reference Range Interpretation Comments Ferritin (test code = 1418.54 ng/mL 5.00-275.00 H 2276-4) BRANDI (test code = BRANDI) Hand I Thermal Cutter ID - HIEN Hernandes Lab Interpretation (test Abnormal code = 84672-3) [facility] 09:21:04 Test Item Value Reference Range Interpretation Comments Ferritin (test code = 1418.54 ng/mL 5.00-275.00 H 2276-4) BRANDI (test code = BRANDI) Hand I Thermal Cutter NORAH - HIEN Hernandes Lab Interpretation (test Abnormal code = 06113-8) [facility] 09:21:04 Test Item Value Reference Range Interpretation Comments Ferritin (test code = 1418.54 ng/mL 5.00-275.00 H 2276-4) BRANDI (test code = BRANDI) Hand I Thermal Cutter ID - HIEN M Lab Interpretation (test Abnormal code = 02192-3) [facility] 09:21:04 Test Item Value Reference Range Interpretation Comments Ferritin (test code = 1418.54 ng/mL 5.00-275.00 H 2276-4) BRANDI (test code = BRANDI) Hand I Thermal Cutter ID - HIEN M Lab Interpretation (test Abnormal code = 26638-1) [facility]2022-03-12 09:21:04 Test Item Value Reference Range Interpretation Comments Ferritin (test code = 1418.54 ng/mL 5.00-275.00 H 2276-4) BRANDI (test code = BRANDI) Hand I Thermal Cutter ID - HIEN M Lab Interpretation (test Abnormal code = 75496-2) [facility]2022-03-12 09:21:04 Test Item Value Reference Range Interpretation Comments Ferritin (test code = 1418.54 ng/mL 5.00-275.00 H 2276-4) BRANDI (test code = BRANDI) Hand I Thermal Cutter ID - HIEN M Lab Interpretation (test Abnormal code = 98028-6) [facility]2022-03-12 09:21:04 Test Item Value Reference Range Interpretation Comments Ferritin (test code = 1418.54 ng/mL 5.00-275.00 H 2276-4) BRANDI (test code = BRANDI) Hand I Thermal Cutter ID - HIEN M Lab Interpretation (test Abnormal code = 59312-9) [facility] 09:21:04 Test Item Value Reference Range Interpretation Comments Ferritin (test code = 1418.54 ng/mL 5.00-275.00 H 2276-4) BRANDI (test code = BRANDI) Hand I Thermal Cutter ID - HIEN M Lab Interpretation (test Abnormal code = 25931-1) [facility]2022-03-12 09:21:04 Test Item Value Reference Range Interpretation Comments Ferritin (test code = 1418.54 ng/mL 5.00-275.00 H 2276-4) BRANDI (test code = BRANDI) Hand I Thermal Cutter ID - HIEN M Lab Interpretation (test Abnormal code = 93531-9) [facility] 09:21:04 Test Item Value Reference Range Interpretation Comments Ferritin (test code = 1418.54 ng/mL 5.00-275.00 H 2276-4) BRANDI (test code = BRANDI) Hand I Thermal Cutter ID - HIEN M Lab Interpretation (test Abnormal code = 82529-6) [facility] 09:21:04 Test Item Value Reference Range Interpretation Comments Ferritin (test code = 1418.54 ng/mL 5.00-275.00 H 2276-4) BRANDI (test code = BRANDI) Hand I Thermal Cutter ID - HIEN M Lab Interpretation (test Abnormal code = 30127-3) [facility]2022-03-12 09:21:04 Test Item Value Reference Range Interpretation Comments Ferritin (test code = 1418.54 ng/mL 5.00-275.00 H 2276-4) BRANDI (test code = BRANDI) Hand I Thermal Cutter ID - HIEN M Lab Interpretation (test Abnormal code = 16932-8) [facility] 09:21:04 Test Item Value Reference Range Interpretation Comments Ferritin (test code = 1418.54 ng/mL 5.00-275.00 H 2276-4) BRANDI (test code = BRANDI) Hand I Thermal Cutter ID - HIEN M Lab Interpretation (test Abnormal code = 97327-9) [facility]2022-03-12 09:21:04 Test Item Value Reference Range Interpretation Comments FERRITIN (BEAKER) (test code = 1418.54 ng/mL 5.00-275.00 H 361) Hand I Thermal Cutter ID - HIEN [place], TIBC, % sat. (without ferritin)2021-06-13 09:01:39 Test Item Value Reference Range Interpretation Comments Iron (test code = 2498-4) 75.0 ug/dL 40.0-160.0 TIBC (test code = 2500-7) 145 ug/dL 250-450 L Iron % Saturation (test 52 % 20-55 code = 2502-3) BRANDI (test code = BRANDI) Hand I Thermal Cutter ID - HIEN M Lab Interpretation (test Abnormal code = 73885-9) [facility], TIBC, % sat. (without ferritin)2021-06-13 09:01:39 Test Item Value Reference Range Interpretation Comments Iron (test code = 2498-4) 75.0 ug/dL 40.0-160.0 TIBC (test code = 2500-7) 145 ug/dL 250-450 L Iron % Saturation (test 52 % 20-55 code = 2502-3) BRANDI (test code = BRANDI) Hand I Thermal Cutter ID - HIEN M Lab Interpretation (test Abnormal code = 21601-7) [facility], TIBC, % sat. (without ferritin)2021-06-13 09:01:39 Test Item Value Reference Range Interpretation Comments Iron (test code = 2498-4) 75.0 ug/dL 40.0-160.0 TIBC (test code = 2500-7) 145 ug/dL 250-450 L Iron % Saturation (test 52 % 20-55 code = 2502-3) BRANDI (test code = BRANDI) Hand I Thermal Cutter ID - HIEN M Lab Interpretation (test Abnormal code = 41656-2) [facility], TIBC, % sat. (without ferritin)2021-06-13 09:01:39 Test Item Value Reference Range Interpretation Comments Iron (test code = 2498-4) 75.0 ug/dL 40.0-160.0 TIBC (test code = 2500-7) 145 ug/dL 250-450 L Iron % Saturation (test 52 % 20-55 code = 2502-3) BRANDI (test code = BRANDI) Hand I Thermal Cutter ID - HIEN M Lab Interpretation (test Abnormal code = 77922-1) [facility], TIBC, % sat. (without ferritin)2021-06-13 09:01:39 Test Item Value Reference Range Interpretation Comments Iron (test code = 2498-4) 75.0 ug/dL 40.0-160.0 TIBC (test code = 2500-7) 145 ug/dL 250-450 L Iron % Saturation (test 52 % 20-55 code = 2502-3) BRANDI (test code = BRANDI) Hand I Thermal Cutter ID - HIEN M Lab Interpretation (test Abnormal code = 87647-0) [facility], TIBC, % sat. (without ferritin)2021-06-13 09:01:39 Test Item Value Reference Range Interpretation Comments Iron (test code = 2498-4) 75.0 ug/dL 40.0-160.0 TIBC (test code = 2500-7) 145 ug/dL 250-450 L Iron % Saturation (test 52 % 20-55 code = 2502-3) BRANDI (test code = BRANDI) Hand I Thermal Cutter ID - HIEN M Lab Interpretation (test Abnormal code = 37175-3) [facility], TIBC, % sat. (without ferritin)2021-06-13 09:01:39 Test Item Value Reference Range Interpretation Comments Iron (test code = 2498-4) 75.0 ug/dL 40.0-160.0 TIBC (test code = 2500-7) 145 ug/dL 250-450 L Iron % Saturation (test 52 % 20-55 code = 2502-3) BRANDI (test code = BRANDI) Hand I Thermal Cutter ID - HIEN M Lab Interpretation (test Abnormal code = 52237-3) [facility], TIBC, % sat. (without ferritin)2021-06-13 09:01:39 Test Item Value Reference Range Interpretation Comments Iron (test code = 2498-4) 75.0 ug/dL 40.0-160.0 TIBC (test code = 2500-7) 145 ug/dL 250-450 L Iron % Saturation (test 52 % 20-55 code = 2502-3) BRANDI (test code = BRANDI) Hand I Thermal Cutter ID - HIEN M Lab Interpretation (test Abnormal code = 22411-5) [facility], TIBC, % sat. (without ferritin)2021-06-13 09:01:39 Test Item Value Reference Range Interpretation Comments Iron (test code = 2498-4) 75.0 ug/dL 40.0-160.0 TIBC (test code = 2500-7) 145 ug/dL 250-450 L Iron % Saturation (test 52 % 20-55 code = 2502-3) BRANDI (test code = BRANDI) Hand I Thermal Cutter ID - HIEN M Lab Interpretation (test Abnormal code = 73472-6) [facility], TIBC, % sat. (without ferritin)2021-06-13 09:01:39 Test Item Value Reference Range Interpretation Comments Iron (test code = 2498-4) 75.0 ug/dL 40.0-160.0 TIBC (test code = 2500-7) 145 ug/dL 250-450 L Iron % Saturation (test 52 % 20-55 code = 2502-3) BRANDI (test code = BRANDI) Hand I Thermal Cutter ID - HIEN M Lab Interpretation (test Abnormal code = 08576-3) [facility], TIBC, % sat. (without ferritin)2021-06-13 09:01:39 Test Item Value Reference Range Interpretation Comments Iron (test code = 2498-4) 75.0 ug/dL 40.0-160.0 TIBC (test code = 2500-7) 145 ug/dL 250-450 L Iron % Saturation (test 52 % 20-55 code = 2502-3) BRANDI (test code = BRANDI) Hand I Thermal Cutter ID - HIEN M Lab Interpretation (test Abnormal code = 67045-0) [facility], TIBC, % sat. (without ferritin)2021-06-13 09:01:39 Test Item Value Reference Range Interpretation Comments Iron (test code = 2498-4) 75.0 ug/dL 40.0-160.0 TIBC (test code = 2500-7) 145 ug/dL 250-450 L Iron % Saturation (test 52 % 20-55 code = 2502-3) BRANDI (test code = BRANDI) Hand I Thermal Cutter ID - HIEN M Lab Interpretation (test Abnormal code = 90867-7) [facility], TIBC, % sat. (without ferritin)2021-06-13 09:01:39 Test Item Value Reference Range Interpretation Comments Iron (test code = 2498-4) 75.0 ug/dL 40.0-160.0 TIBC (test code = 2500-7) 145 ug/dL 250-450 L Iron % Saturation (test 52 % 20-55 code = 2502-3) BRANDI (test code = BRANDI) Hand I Thermal Cutter ID - HIEN M Lab Interpretation (test Abnormal code = 22973-0) [facility], TIBC, % SAT. (WITHOUT FERRITIN)2021-06-13 09:01:39 Test Item Value Reference Range Interpretation Comments IRON (BEAKER) (test code = 547) 75.0 ug/dL 40.0-160.0 TOTAL IRON BINDING CAPACITY 145 ug/dL 250-450 L (BEAKER) (test code = 769) IRON % SATURATION (2) (BEAKER) 52 % 20-55 (test code = 2590) Hand I Thermal Cutter ID Bassam [place] MPOCT-GLUCOSE [id number] 08:51:07 Test Item Value Reference Range Interpretation Comments POC-GLUCOSE METER 106 mg/dL 70-110 : TESTED A T [facility] 6720 (BEAKER) (test code = [place], 1538) 285[address]: Hand I Thermal Cutter/Techni kelle ID = [id number] for PADMINI ALMANZAR BASIC METABOLIC [id number] 04:21:54 Test Item Value Reference Range Interpretation [...] S NOT APPLICABLE FOR DIALYSIS PATIEN TS. Hand I Thermal Cutter ID - HIEN [id number] 04:17:34 Test Item Value Reference Range Interpretation Comments MAGNESIUM (BEAKER) (test code = 2.0 mg/dL 1.6-2.6 627) Hand I Thermal Cutter ID - HIEN [id number] 04:17:34 Test Item Value Reference Range Interpretation Comments PHOSPHORUS (BEAKER) (test code = 3.1 mg/dL 2.3-4.7 604) Hand I Thermal Cutter ID - HIEN MCBC W/PLT COUNT & AUTO [id number] 03:49:10 Test Item Value Reference Range Interpretation [...] PERCENT (BEAKER) (test code = 2801) SARS-COV2/RT-PCR ([facility])2021-06-13 02:28:08 Test Item Value Reference Range Interpretation Comments SARS-COV2/RT-PCR (test code = Negative Negative 3426278) Negative result for this test determines that [...] 564(g) of the Act.Testing was performed using [facility] SARS-CoV-2 assay.Fact Sheet for Healthcare Providers:https://www.MediaPhy.brown/ct/RT SARS-CoV-2 HCP Fact Sheet 51- 626719.pdfFact Sheet for Healthcare Patients:https://www.MediaPhy.brown/ct/RT SARS-CoV-2 Patient Fact Sheet EN 51-442192R7.pdfPOCT-GLUCOSE [id number] 02:01:02 Test Item Value Reference Range Interpretation Comments POC-GLUCOSE METER 98 mg/dL 70-110 : TESTED A T [facility] 6720 (BEAKER) (test code = [facility] [place], 1538) 65611: Hand I Thermal Cutter/Techni kelle ID = [id number] for SREEKANTH ROSS POCT-GLUCOSE [id number] 02:00:06 Test Item Value Reference Range Interpretation Comments POC-GLUCOSE METER 151 mg/dL 70-110 H : TESTED A T [facility] 6720 (BEAKER) (test code = [facility] [place] [facility], 1538) 26475: Hand I Thermal Cutter/Techni kelle ID = [id number] for ALINE ROWE BLOOD [id number] 23:01:20 Test Item Value Reference Range Interpretation Comments CULTURE (BEAKER) (test No growth in 5 days code = 1095) BLOOD [id number] 23:01:19 Test Item Value Reference Range Interpretation Comments CULTURE (BEAKER) (test No growth in 5 days code = 1095) CT, BRAIN, WITHOUT [id number] 08:55:00Unlisted Reason for Exam - Click Yes and Enter Reason Below->No [facility] : 1955 Sex: FFINAL REPORT CT Head [...] MDReport Verified Date/Time: 06/12/2021 08:55:52 Reading Location: [address] Neuro Reading Room POCT-GLUCOSE [id number] 07:42:49 Test Item Value Reference Range Interpretation Comments POC-GLUCOSE METER 113 mg/dL 70-110 H : TESTED A T [facility] 6720 (BEAKER) (test code = [facility], 1538) 00878: Hand I Thermal Cutter/Techni kelle ID = [id number] for Sheryl Enciso POCT-GLUCOSE [id number] 07:42:05 Test Item Value Reference Range Interpretation Comments POC-GLUCOSE METER 131 mg/dL 70-110 H : TESTED A T [facility] 6720 (BEAKER) (test code = [facility], 1538) 75978: Hand I Thermal Cutter/Techni kelle ID = [id number] for JI MONTAÑO POCT-GLUCOSE [id number] 07:32:16 Test Item Value Reference Range Interpretation Comments POC-GLUCOSE METER 127 mg/dL 70-110 H : TESTED A T [facility] 6720 (BEAKER) (test code = [facility], 1538) 08402: Hand I Thermal Cutter/Techni kelle ID = [id number] for GURINDER VILLA CT, CTANGIO [id number] 03:03:00Reason for exam:->Symptoms onset less than 6 hours and NIHSS 6 or greater [facility] : 1955 Sex: FFINAL REPORT CLINICAL HISTORY: Unlisted Reason for ExamSymptoms onset less than 6hours and NIHSS 6 or greater TECHNIQUE: Contiguous [...] are patent. origin of the right posterior cerebralartery with patent right posterior to indicating artery. [...] calcifications of the right carotid bifurcation however noflow limiting stenosis. The vertebral arteries in the neck are patent including their origins. Thereare dorsal spondylitic changes in the cervical spine. Collapse of the C6 vertebral body with erosiveendplate changes of C6-C7, age indeterminate, however no [...] the film. IMPRESSION: No evidence of a [place] proximal branch vessel occlusion or intracranial aneurysm. Intracranial atherosclerosis worse in the carotid siphons were there is moderate stenosis. No evidence of hemodynamically significant stenosis in the right cervical carotid or vertebral arteries by NASCET criteria. There is 40% stenosis of the proximal left internal carotid artery by NASCET criteria. Collapse of the C6 vertebral body with e rosive endplate changes of C6-C7, age indeterminate, however no significant prevertebral soft tissuechanges. Correlate clinically and consider further evaluation with MRI if indicated. Large right pleural effusion and interstitial pulmonary edema. Signed: Nikole Baron MDReport Verified Date/Time: 06/12/2021 03:03:56 [facility], [place], [id number] 03:03:00Reason for exam:- >Symptoms onset less than 6 hours and NIHSS 6 or greater [facility] : 1955 Sex: FFINAL REPORT [...] the film. IMPRESSION: No evidence of a [place] proximal branch vessel occlusion or [...] Nikole Baron Verified Date/Time: 06/12/2021 03:03:56 PROTHROMBIN TIME/[id number] 01:46:16 Test Item Value Reference Range Interpretation Comments PROTIME (BEAKER) 15.0 seconds 11.9-14.2 H (test code = 759) INR (BEAKER) (test 1.20 See_Comment [Automat ed message] code = 370) The system [employer] generated this result transmitted ref erence range: <=5.90. The reference range was not used to int erpret this result as normal/abnormal . RECOMMENDED COUMADIN/WARFARIN INR THERAPY RANGESSTANDARD DOSE: 2.0 - 3.0 Includes: PROPHYLAXIS for venous thrombosis, systemic embolization; TREATMENT for venous thrombosis and/or pulmonary embolus.HIGH RISK: Target INR is 2.5-3.5 for patients with mechanical heart valves.CBC W/PLT COUNT & AUTO [id number] 01:45:34 Test Item Value Reference Range Interpretation [...] (test code = 2801) CT, BRAIN, WITHOUT [id number] 01:38:00Unlisted Reason for Exam - Click Yes and Enter Reason Below->No [facility] : 1955 Sex: FFINAL REPORT [...] Date/Time: 06/12/2021 01:38:35 High Sensitivity Troponin I ([facility]/Jin Only)2021-06-12 01:35:31 Test Item Value Reference Range Interpretation Comments Troponin I HS (test 231 pg/ml See_Comment H [Automa levi code = 43375-3) message] The system which generated this result transmitted reference range : <=17. The reference range was not used to interpret this result as normal/abnormal . BRANDI (test code = Hand I Thermal Cutter ID - BRANDI) DBThe FIRE TECHNOLOGY INSTRUCTOR STAT High Sensitivity Troponin-I results should be used in conjunction with other diagnostic information such as ECG, clinical observations and information, and patient symptoms to aid in the diagnosis of [place]. Lab Interpretation Abnormal (test code = 56058-9) [facility]Jin Only[facility] 2021-06-12 01:35:31 Test Item Value Reference Range Interpretation Comments Troponin I HS (test 231 pg/ml See_Comment H [Automa levi code = 59989-8) message] The system which generated this result transmitted reference range : <=17. The reference range was not used to interpret this result as normal/abnormal . BRANDI (test code = Hand I Thermal Cutter ID - RBANDI) DBThe FIRE TECHNOLOGY INSTRUCTOR STAT High Sensitivity Troponin-I results should be used in conjunction with other diagnostic information such as ECG, clinical observations and information, and patient symptoms to aid in the diagnosis of [place]. Lab Interpretation Abnormal (test code = 13879-8) [facility] 2021-06-12 01:35:31 Test Item Value Reference Range Interpretation Comments Troponin I HS (test 231 pg/ml See_Comment H [Automa levi code = 78438-1) message] The system which generated this result transmitted reference range : <=17. The reference range was not used to interpret this result as normal/abnormal . BRANDI (test code = Hand I Thermal Cutter ID - BRANDI) DBThe FIRE TECHNOLOGY INSTRUCTOR STAT High Sensitivity Troponin-I results should be used in conjunction with other diagnostic information such as ECG, clinical observations and information, and patient symptoms to aid in the diagnosis of [place]. Lab Interpretation Abnormal (test code = 01295-8) [facility] 2021-06-12 01:35:31 Test Item Value Reference Range Interpretation Comments Troponin I HS (test 231 pg/ml See_Comment H [Automa levi code = 11591-0) message] The system which generated this result transmitted reference range : <=17. The reference range was not used to interpret this result as normal/abnormal . BRANDI (test code = Hand I Thermal Cutter ID - BRANDI) DBThe FIRE TECHNOLOGY INSTRUCTOR STAT High Sensitivity Troponin-I results should be used in conjunction with other diagnostic information such as ECG, clinical observations and information, and patient symptoms to aid in the diagnosis of [place]. Lab Interpretation Abnormal (test code = 76628-6) [facility]Jin Only[facility] 2021-06-12 01:35:31 Test Item Value Reference Range Interpretation Comments Troponin I HS (test 231 pg/ml See_Comment H [Autom ated code = 49589-9) message] The system which generated this result transmitted reference range : <=17. The reference range was not used to interpret this result as normal/abnormal . BRANDI (test code = Hand I Thermal Cutter ID - BRANDI) DBThe FIRE TECHNOLOGY INSTRUCTOR STAT High Sensitivity Troponin-I results should be used in conjunction with other diagnostic information such as ECG, clinical observations and information, and patient symptoms to aid in the diagnosis of [place]. Lab Interpretation Abnormal (test code = 39134-5) [facility] 2021-06-12 01:35:31 Test Item Value Reference Range Interpretation Comments Troponin I HS (test 231 pg/ml See_Comment H [Automa levi code = 23655-5) message] The system which generated this result transmitted reference range : <=17. The reference range was not used to interpret this result as normal/abnormal . BRANDI (test code = Hand I Thermal Cutter ID - BRANDI) DBThe FIRE TECHNOLOGY INSTRUCTOR STAT High Sensitivity Troponin-I results should be used in conjunction with other diagnostic information such as ECG, clinical observations and information, and patient symptoms to aid in the diagnosis of [place]. Lab Interpretation Abnormal (test code = 59402-1) [facility] 2021-06-12 01:35:31 Test Item Value Reference Range Interpretation Comments Troponin I HS (test 231 pg/ml See_Comment H [Automa levi code = 48207-8) message] The system which generated this result transmitted reference range : <=17. The reference range was not used to interpret this result as normal/abnormal . BRANDI (test code = Hand I Thermal Cutter ID - BRANDI) [employer] FIRE TECHNOLOGY INSTRUCTOR STAT High Sensitivity Troponin-I results should be used in conjunction with other diagnostic information such as ECG, clinical observations and information, and patient symptoms to aid in the diagnosis of [place]. Lab Interpretation Abnormal (test code = 13993-6) [facility] ([facility]/Jin Only) 2021-06-12 01:35:31 Test Item Value Reference Range Interpretation Comments Troponin I HS (test 231 pg/ml See_Comment H [Automa levi code = 57745-8) message] The system which generated this result transmitted reference range : <=17. The reference range was not used to interpret this result as normal/abnormal . BRANDI (test code = Hand I Thermal Cutter ID - BRANDI) DBThe FIRE TECHNOLOGY INSTRUCTOR STAT High Sensitivity Troponin-I results should be used in conjunction with other diagnostic information such as ECG, clinical observations and information, and patient symptoms to aid in the diagnosis of [place]. Lab Interpretation Abnormal (test code = 13648-2) [facility] 2021-06-12 01:35:31 Test Item Value Reference Range Interpretation Comments Troponin I HS (test 231 pg/ml See_Comment H [Automa levi code = 40838-1) message] The system which generated this result transmitted reference range : <=17. The reference range was not used to interpret this result as normal/abnormal . BRANDI (test code = Hand I Thermal Cutter ID - BRANDI) DBThe FIRE TECHNOLOGY INSTRUCTOR STAT High Sensitivity Troponin-I results should be used in conjunction with other diagnostic information such as ECG, clinical observations and information, and patient symptoms to aid in the diagnosis of [place]. Lab Interpretation Abnormal (test code = 40481-9) [facility]in [facility] 2021-06-12 01:35:31 Test Item Value Reference Range Interpretation Comments Troponin I HS (test 231 pg/ml See_Comment H [Automa levi code = 93543-6) message] The system which generated this result transmitted reference range : <=17. The reference range was not used to interpret this result as normal/abnormal . BRANDI (test code = Hand I Thermal Cutter ID - BRANDI) DBThe FIRE TECHNOLOGY INSTRUCTOR STAT High Sensitivity Troponin-I results should be used in conjunction with other diagnostic information such as ECG, clinical observations and information, and patient symptoms to aid in the diagnosis of [place]. Lab Interpretation Abnormal (test code = 55591-8) [facility] ([facility]in Only[facility] 2021-06-12 01:35:31 Test Item Value Reference Range Interpretation Comments Troponin I HS (test 231 pg/ml See_Comment H [Automa levi code = 11531-6) message] The system which generated this result transmitted reference range : <=17. The reference range was not used to interpret this result as normal/abnormal . BRANDI (test code = Hand I Thermal Cutter ID - BRANDI) DBThe FIRE TECHNOLOGY INSTRUCTOR STAT High Sensitivity Troponin-I results should be used in conjunction with other diagnostic information such as ECG, clinical observations and information, and patient symptoms to aid in the diagnosis of [place]. Lab Interpretation Abnormal (test code = 42634-6) [facility] 2021-06-12 01:35:31 Test Item Value Reference Range Interpretation Comments Troponin I HS (test 231 pg/ml See_Comment H [Automa levi code = 31513-1) message] The system which generated this result transmitted reference range : <=17. The reference range was not used to interpret this result as normal/abnormal . BRANDI (test code = Hand I Thermal Cutter ID - BRANDI) DBThe FIRE TECHNOLOGY INSTRUCTOR STAT High Sensitivity Troponin-I results should be used in conjunction with other diagnostic information such as ECG, clinical observations and information, and patient symptoms to aid in the diagnosis of [place]. Lab Interpretation Abnormal (test code = 45565-5) [facility]in [facility] 2021-06-12 01:35:31 Test Item Value Reference Range Interpretation Comments Troponin I HS (test 231 pg/ml See_Comment H [Automa levi code = 25836-2) message] The system which generated this result transmitted reference range : <=17. The reference range was not used to interpret this result as normal/abnormal . BRANDI (test code = Hand I Thermal Cutter ID - BRANDI) DBThe FIRE TECHNOLOGY INSTRUCTOR STAT High Sensitivity Troponin-I results should be used in conjunction with other diagnostic information such as ECG, clinical observations and information, and patient symptoms to aid in the diagnosis of [place]. Lab Interpretation Abnormal (test code = 09809-7) [facility] TROPONIN [id number] 01:35:31 Test Item Value Reference Range Interpretation Comments HIGH SENSITIVITY 231 pg/ml See_Comment H [Automated message] TROPONIN I (test code The sy stem which = 3035525) generated this result transmitted ref erence range: <=17. Th e reference range was not used to int erpret this result as normal/abnormal . Hand I Thermal Cutter ID - DBThe FIRE TECHNOLOGY INSTRUCTOR STAT High Sensitivity Troponin-I results should be used in conjunctionwith other diagnostic information such as ECG, clinical observations and information, and patient symptoms to aid in the diagnosis of [place].BASIC METABOLIC [id number] 01:29:11 Test Item Value Reference Range Interpretation [...] S NOT APPLICABLE FOR DIALYSIS PATIEN TS. Hand I Thermal Cutter ID - [id number] 01:28:34 Test Item Value Reference Range Interpretation Comments PHOSPHORUS (BEAKER) 4.6 mg/dL 2.3-4.7 Specimen slightly (test code = 604) hemolyzed Hand I Thermal Cutter ID - [id number] 01:28:33 Test Item Value Reference Range Interpretation Comments MAGNESIUM (BEAKER) 2.2 mg/dL 1.6-2.6 Specimen slightly (test code = 627) hemolyzed Hand I Thermal Cutter ID - DBLactic acid, [id number] 01:26:32 Test Item Value Reference Range Interpretation Comments Lactate, Venous (test code = 0.87 mmol/L 0.50-2.20 2872) BRANDI (test code = BRANDI) Hand I Thermal Cutter ID - DB Lab Interpretation (test Normal code = 65081-2) [facility] Center[facility], [id number] 01:26:32 Test Item Value Reference Range Interpretation Comments Lactate, Venous (test code = 0.87 mmol/L 0.50-2.20 2872) BRANDI (test code = BRANDI) Hand I Thermal Cutter ID - DB Lab Interpretation (test Normal code = 00900-2) [facility] CenterL[facility], [id number] 01:26:32 Test Item Value Reference Range Interpretation Comments Lactate, Venous (test code = 0.87 mmol/L 0.50-2.20 2872) BRANDI (test code = BRANDI) Hand I Thermal Cutter ID - DB Lab Interpretation (test Normal code = 43900-2) [facility] CenterL[facility], [id number] 01:26:32 Test Item Value Reference Range Interpretation Comments Lactate, Venous (test code = 0.87 mmol/L 0.50-2.20 2872) BRANDI (test code = BRANDI) Hand I Thermal Cutter ID - DB Lab Interpretation (test Normal code = 28838-9) [facility] [id number] 01:26:32 Test Item Value Reference Range Interpretation Comments Lactate, Venous (test code = 0.87 mmol/L 0.50-2.20 2872) BRANDI (test code = BRANDI) Hand I Thermal Cutter ID - DB Lab Interpretation (test Normal code = 26694-5) [facility], [id number] 01:26:32 Test Item Value Reference Range Interpretation Comments Lactate, Venous (test code = 0.87 mmol/L 0.50-2.20 2872) BRANDI (test code = BRANDI) Hand I Thermal Cutter ID - DB Lab Interpretation (test Normal code = 77444-0) [facility], [id number] 01:26:32 Test Item Value Reference Range Interpretation Comments Lactate, Venous (test code = 0.87 mmol/L 0.50-2.20 2872) BRANDI (test code = BRANDI) Hand I Thermal Cutter ID - DB Lab Interpretation (test Normal code = 46993-3) [facility], [id number] 01:26:32 Test Item Value Reference Range Interpretation Comments Lactate, Venous (test code = 0.87 mmol/L 0.50-2.20 2872) BRANDI (test code = BRANDI) Hand I Thermal Cutter ID - DB Lab Interpretation (test Normal code = 23234-6) [facility], [id number] 01:26:32 Test Item Value Reference Range Interpretation Comments Lactate, Venous (test code = 0.87 mmol/L 0.50-2.20 2872) BRANDI (test code = BRANDI) Hand I Thermal Cutter ID - DB Lab Interpretation (test Normal code = 61905-1) [facility], [id number] 01:26:32 Test Item Value Reference Range Interpretation Comments Lactate, Venous (test code = 0.87 mmol/L 0.50-2.20 2872) BRANDI (test code = BRANDI) Hand I Thermal Cutter ID - DB Lab Interpretation (test Normal code = 47250-7) [facility], [id number] 01:26:32 Test Item Value Reference Range Interpretation Comments Lactate, Venous (test code = 0.87 mmol/L 0.50-2.20 2872) BRANDI (test code = BRANDI) Hand I Thermal Cutter ID - DB Lab Interpretation (test Normal code = 14981-3) [facility] CenterL[facility], [id number] 01:26:32 Test Item Value Reference Range Interpretation Comments Lactate, Venous (test code = 0.87 mmol/L 0.50-2.20 2872) BRANDI (test code = BRANDI) Hand I Thermal Cutter ID - DB Lab Interpretation (test Normal code = 31408-2) [facility], [id number] 01:26:32 Test Item Value Reference Range Interpretation Comments Lactate, Venous (test code = 0.87 mmol/L 0.50-2.20 2872) BRANDI (test code = BRANDI) Hand I Thermal Cutter ID - DB Lab Interpretation (test Normal code = 47773-7) [facility], [id number] 01:26:32 Test Item Value Reference Range Interpretation Comments LACTATE BLOOD VENOUS (2) (BEAKER) 0.87 mmol/L 0.50-2.20 (test code = 2872) Hand I Thermal Cutter ID - DBPOCT-GLUCOSE [id number] 16:24:28 Test Item Value Reference Range Interpretation Comments POC-GLUCOSE METER 244 mg/dL 70-110 H : TESTED A T [facility] 6720 (BEAKER) (test code = [facility] enymotion [facility], 1538) [address]: Hand I Thermal Cutter/Techni kelle ID = [id number] for Re yes, Maranda POCT-GLUCOSE [id number] 11:29:05 Test Item Value Reference Range Interpretation Comments POC-GLUCOSE METER 168 mg/dL 70-110 H : TESTED A T [facility] 6720 (BEAKER) (test code = [facility] enymotion [facility], 1538) [address]6483: Hand I Thermal Cutter/Techni kelle ID = [id number] for Re yes, Maranda POCT-GLUCOSE [id number] 06:45:50 Test Item Value Reference Range Interpretation Comments POC-GLUCOSE METER 132 mg/dL 70-110 H : TESTED A T [facility] 6720 (BEAKER) (test code = [facility] enymotion [facility], 1538) [address]: Hand I Thermal Cutter/Techni kelle ID = [id number] for GHADA BECK BASIC METABOLIC [id number] 05:08:08 Test Item Value Reference Range Interpretation [...] S NOT APPLICABLE FOR DIALYSIS PATIEN TS. Hand I Thermal Cutter ID - HIEN [id number] 04:56:38 Test Item Value Reference Range Interpretation Comments MAGNESIUM (BEAKER) (test code = 1.9 mg/dL 1.6-2.6 627) Hand I Thermal Cutter ID - HIEN [id number] 04:56:38 Test Item Value Reference Range Interpretation Comments PHOSPHORUS (BEAKER) (test code = 3.7 mg/dL 2.3-4.7 604) Hand I Thermal Cutter ID - HIEN MCBC W/PLT COUNT & AUTO [id number] 04:33:28 Test Item Value Reference Range Interpretation [...] = 2801) CBC W/PLT COUNT & AUTO [id number] 22:57:11 Test Item Value Reference Range Interpretation [...] = 2801) RAD, CHEST, 1 VIEW, NON [id number] 22:44:00Reason for exam:- >dyspneaShould this be performed at the bedside?->Yes [facility] : 1955 Sex: FFINAL REPORT History: dyspnea. Comparison: 06/07/2021 Findings: A single view of the chest is submitted. The [...] moderate right pleural effusion. Signed: Braxton Quintero Verified Date/Time: 06/10/2021 22:44:59 [id number] 22:43:07 Test Item Value Reference Range Interpretation Comments POC-Glucose (test code = 118 mg/dL 70-110 H : T ESTED AT [facility] 1855) 6720 [facility], 770 30: Hand I Thermal Cutter/Techni kelle ID = [id number] for HERBERT CELISE Lab Interpretation (test Abnormal code = 46957-9) [facility]-[id number] 22:43:07 Test Item Value Reference Range Interpretation Comments POC-Glucose (test code = 118 mg/dL 70-110 H : T ESTED AT [facility] 1855) 67[address] [facility], 770 30: Hand I Thermal Cutter/Techni kelle ID = [id number] for MARFIL, JOSE ARMANDO Lab Interpretation (test Abnormal code = 59252-8) [facility]2022-03-09 22:43:07 Test Item Value Reference Range Interpretation Comments POC-Glucose (test code = 118 mg/dL 70-110 H : [facility] [address] [place] [address], 770 30: Hand I Thermal Cutter/Techni kelle ID = [id number] for MARFIL, JOSE ARMANDO Lab Interpretation (test Abnormal code = 36162-9) [facility]2022-03-09 22:43:07 Test Item Value Reference Range Interpretation Comments POC-Glucose (test code = 118 mg/dL 70-110 H : T ESTED AT [facility] 1855) [address] [place] [address], 770 30: Hand I Thermal Cutter/Techni kelle ID = [id number] for MARFIL, JOSE ARMANDO Lab Interpretation (test Abnormal code = 67063-4) [facility]2022-03-09 22:43:07 Test Item Value Reference Range Interpretation Comments POC-Glucose (test code = 118 mg/dL 70-110 H : [facility] [address] [place] [address], 770 30: Hand I Thermal Cutter/Techni kelle ID = [id number] for MARFIL, JOSE ARMANDO Lab Interpretation (test Abnormal code = 33844-1) [facility]2022-03-09 22:43:07 Test Item Value Reference Range Interpretation Comments POC-Glucose (test code = 118 mg/dL 70-110 H : [facility] [address] [place] [address], 770 30: Hand I Thermal Cutter/Techni kelle ID = [id number] for MARFIL, JOSE ARMANDO Lab Interpretation (test Abnormal code = 38108-1) [facility]2022-03-09 22:43:07 Test Item Value Reference Range Interpretation Comments POC-Glucose (test code = 118 mg/dL 70-110 H : [facility] [address] [place] [address], 770 30: Hand I Thermal Cutter/Techni kelle ID = [id number] for MARFIL, JOSE ARMANDO Lab Interpretation (test Abnormal code = 22746-4) [facility]2022-03-09 22:43:07 Test Item Value Reference Range Interpretation Comments POC-Glucose (test code = 118 mg/dL 70-110 H : [facility] [address] [place] [address], 770 30: Hand I Thermal Cutter/Techni kelle ID = [id number] for MARFIL, JOSE ARMANDO Lab Interpretation (test Abnormal code = 57735-3) [facility]2022-03-09 22:43:07 Test Item Value Reference Range Interpretation Comments POC-Glucose (test code = 118 mg/dL 70-110 H : [facility] [address] [place] [address], 770 30: Hand I Thermal Cutter/Techni kelle ID = [id number] for MARFIL, JOSE ARMANDO Lab Interpretation (test Abnormal code = 27776-8) [facility]2022-03-09 22:43:07 Test Item Value Reference Range Interpretation Comments POC-Glucose (test code = 118 mg/dL 70-110 H : T ESTED AT [facility] 1855) [address] [place] [address], 770 30: Hand I Thermal Cutter/Techni kelle ID = [id number] for MARFIL, JOSE ARMANDO Lab Interpretation (test Abnormal code = 78210-1) [facility]2022-03-09 22:43:07 Test Item Value Reference Range Interpretation Comments POC-Glucose (test code = 118 mg/dL 70-110 H : [facility] [address] [place] [address], 770 30: Hand I Thermal Cutter/Techni kelle ID = [id number] for MARFIL, JOSE ARMANDO Lab Interpretation (test Abnormal code = 21388-6) [facility]2022-03-09 22:43:07 Test Item Value Reference Range Interpretation Comments POC-Glucose (test code = 118 mg/dL 70-110 H : [facility] [address] [place] [address], 770 30: Hand I Thermal Cutter/Techni kelle ID = [id number] for MARFIL, JOSE ARMANDO Lab Interpretation (test Abnormal code = 77776-3) [facility]2022-03-09 22:43:07 Test Item Value Reference Range Interpretation Comments POC-Glucose (test code = 118 mg/dL 70-110 H : T ESTED AT [facility] 1855) [address] [facility], 770 30: Hand I Thermal Cutter/Techni kelle ID = [id number] for MARFIL, JOSE ARMANDO Lab Interpretation (test Abnormal code = 80768-1) [facility][id number] 22:43:07 Test Item Value Reference Range Interpretation Comments POC-GLUCOSE (BEAKER) 118 mg/dL 70-110 H : TESTE D AT [facility] 6720 (test code = 1855) [facility], [address]: Hand I Thermal Cutter/Techni kelle ID = [id number] for MARF IL, JOSE ARMANDO [id number] 22:43:06 Test Item Value Reference Range Interpretation Comments POC-Hemoglobin (test code 8.2 g/dL 12.0-15.0 L : TESTED AT [facility] = 1856) 6720 [facility], 770 30: Hand I Thermal Cutter/Techni kelle ID = [id number] for MARFIL, JOSE ARMANDO Lab Interpretation (test Abnormal code = 92151-2) [facility] CenterXpznnjXQMU-[id number] 22:43:06 Test Item Value Reference Range Interpretation Comments POC-Hematocrit (test code 24 % 36-45 L : = 1857) Hand I Thermal Cutter/Techni kelle ID = [id number] for MARFIL, JOSE ARMANDO Lab Interpretation (test Abnormal code = 14753-0) [facility] CenterQdfxadBJUS-[id number] 22:43:06 Test Item Value Reference Range Interpretation Comments POC-Hemoglobin (test code 8.2 g/dL 12.0-15.0 L : TESTED AT [facility] = 1856) 20 [facility], 770 30: Hand I Thermal Cutter/Techni kelle ID = [id number] for MARFIL, JOSE ARMANDO Lab Interpretation (test Abnormal code = 16078-5) [facility] CenterGfieonWYGG-[id number] 22:43:06 Test Item Value Reference Range Interpretation Comments POC-Hematocrit (test code 24 % 36-45 L : = 1857) Hand I Thermal Cutter/Techni kelle ID = [id number] for MARFIL, JOSE ARMANDO Lab Interpretation (test Abnormal code = 69130-0) [id number] 22:43:06 Test Item Value Reference Range Interpretation Comments POC-Hemoglobin (test code 8.2 g/dL 12.0-15.0 L : TESTED AT [facility] = 1856) [address] [place] [address], 770 30: Hand I Thermal Cutter/Techni kelle ID = [id number] for MARFIL, JOSE ARMANDO Lab Interpretation (test Abnormal code = 56337-3) [facility]-[id number] 22:43:06 Test Item Value Reference Range Interpretation Comments POC-Hematocrit (test code 24 % 36-45 L : = 1857) Hand I Thermal Cutter/Techni kelle ID = [id number] for MARFIL, JOSE ARMANDO Lab Interpretation (test Abnormal code = 25242-6) [facility]-[id number] 22:43:06 Test Item Value Reference Range Interpretation Comments POC-Hemoglobin (test code 8.2 g/dL 12.0-15.0 L : TESTED AT [facility] = 1856) [address] [place] [address], 770 30: Hand I Thermal Cutter/Techni kelle ID = [id number] for MARFIL, JOSE ARMANDO Lab Interpretation (test Abnormal code = 79321-9) [facility]-[id number] 22:43:06 Test Item Value Reference Range Interpretation Comments POC-Hematocrit (test code 24 % 36-45 L : = 1857) Hand I Thermal Cutter/Techni kelle ID = [id number] for MARFIL, JOSE ARMANDO Lab Interpretation (test Abnormal code = 44380-7) [facility]-[id number] 22:43:06 Test Item Value Reference Range Interpretation Comments POC-Hemoglobin (test code 8.2 g/dL 12.0-15.0 L : TESTED AT [facility] = 1856) [address] [place] [address], [address]: Hand I Thermal Cutter/Techni kelle ID = [id number] for MARFIL, JOSE ARMANDO Lab Interpretation (test Abnormal code = 43689-4) [facility]-JCIJNCHSGS5278-06-26 22:43:06 Test Item Value Reference Range Interpretation Comments POC-Hematocrit (test code 24 % 36-45 L : = 1857) Hand I Thermal Cutter/Techni kelle ID = [id number] for MARFIL, JOSE ARMANDO Lab Interpretation (test Abnormal code = 17833-5) [facility]-[id number] 22:43:06 Test Item Value Reference Range Interpretation Comments POC-Hemoglobin (test code 8.2 g/dL 12.0-15.0 L : TESTED AT [facility] = 1856) [address] [place] [address], [address]: Hand I Thermal Cutter/Techni kelle ID = [id number] for MARFIL, JOSE ARMANDO Lab Interpretation (test Abnormal code = 09166-7) [facility]-[id number] 22:43:06 Test Item Value Reference Range Interpretation Comments POC-Hematocrit (test code 24 % 36-45 L : = 1857) Hand I Thermal Cutter/Techni kelle ID = [id number] for MARFIL, JOSE ARMANDO Lab Interpretation (test Abnormal code = 55855-4) [facility]-[id number] 22:43:06 Test Item Value Reference Range Interpretation Comments POC-Hemoglobin (test code 8.2 g/dL 12.0-15.0 L : TESTED AT [facility] = 1856) [address] [place] [address], [address]: Hand I Thermal Cutter/Techni kelle ID = [id number] for MARFIL, JOSE ARMANDO Lab Interpretation (test Abnormal code = 89621-2) [facility]-[id number] 22:43:06 Test Item Value Reference Range Interpretation Comments POC-Hematocrit (test code 24 % 36-45 L : = 1857) Hand I Thermal Cutter/Techni kelle ID = [id number] for MARFIL, JOSE ARMANDO Lab Interpretation (test Abnormal code = 88523-5) [facility]-[id number] 22:43:06 Test Item Value Reference Range Interpretation Comments POC-Hemoglobin (test code 8.2 g/dL 12.0-15.0 L : TESTED AT [facility] = 1856) [address] [place] [address], [address] 30: Hand I Thermal Cutter/Techni kelle ID = [id number] for MARFIL, JOSE ARMANDO Lab Interpretation (test Abnormal code = 47627-2) [facility]-[id number] 22:43:06 Test Item Value Reference Range Interpretation Comments POC-Hematocrit (test code 24 % 36-45 L : = 1857) Hand I Thermal Cutter/Techni kelle ID = [id number] for MARFIL, JOSE ARMANDO Lab Interpretation (test Abnormal code = 88133-1) [facility]-[id number] 22:43:06 Test Item Value Reference Range Interpretation Comments POC-Hemoglobin (test code 8.2 g/dL 12.0-15.0 L : TESTED AT [facility] = 1856) [address] [place] [address], [address]: Hand I Thermal Cutter/Techni kelle ID = [id number] for MARFIL, JOSE ARMANDO Lab Interpretation (test Abnormal code = 77072-4) [facility]-[id number] 22:43:06 Test Item Value Reference Range Interpretation Comments POC-Hematocrit (test code 24 % 36-45 L : = 1857) Hand I Thermal Cutter/Techni kelle ID = [id number] for MARFIL, JOSE ARMANDO Lab Interpretation (test Abnormal code = 12746-2) [facility]-[id number] 22:43:06 Test Item Value Reference Range Interpretation Comments POC-Hemoglobin (test code 8.2 g/dL 12.0-15.0 L : TESTED AT [facility] = 1856) [address] [place] [address], [address]: Hand I Thermal Cutter/Techni kelle ID = [id number] for MARFIL, JOSE ARMANDO Lab Interpretation (test Abnormal code = 06414-9) [facility]-[id number] 22:43:06 Test Item Value Reference Range Interpretation Comments POC-Hematocrit (test code 24 % 36-45 L : = 1857) Hand I Thermal Cutter/Techni kelle ID = [id number] for MARFIL, JOSE ARMANDO Lab Interpretation (test Abnormal code = 26084-9) [facility]-[id number] 22:43:06 Test Item Value Reference Range Interpretation Comments POC-Hemoglobin (test code 8.2 g/dL 12.0-15.0 L : TESTED AT [facility] = 1856) [address] [place] [address], [address] 30: Hand I Thermal Cutter/Techni kelle ID = [id number] for MARFIL, JOSE ARMANDO Lab Interpretation (test Abnormal code = 79769-0) [facility]-[id number] 22:43:06 Test Item Value Reference Range Interpretation Comments POC-Hematocrit (test code 24 % 36-45 L : = 1857) Hand I Thermal Cutter/Techni kelle ID = [id number] for MARFIL, JOSE ARMANDO Lab Interpretation (test Abnormal code = 33289-3) [facility]TVCMPFZOWF8218-[facility]-09 22:43:06 Test Item Value Reference Range Interpretation Comments POC-Hemoglobin (test code 8.2 g/dL 12.0-15.0 L : TESTED AT [facility] = 1856) [address] [facility], [address] 30: Hand I Thermal Cutter/Techni kelle ID = [id number] for MARFIL, JOSE ARMANDO Lab Interpretation (test Abnormal code = 19198-1) [facility]tnxnwPJVG-FZEHJINTUA6811-92-09 22:43:06 Test Item Value Reference Range Interpretation Comments POC-Hematocrit (test code 24 % 36-45 L : = 1857) Hand I Thermal Cutter/Techni kelle ID = [id number] for MARFIL, JOSE ARMANDO Lab Interpretation (test Abnormal code = 42648-0) [facility]-[id number] 22:43:06 Test Item Value Reference Range Interpretation Comments POC-Hemoglobin (test code 8.2 g/dL 12.0-15.0 L : TESTED AT [facility] = 1856) [address] [place] [address], [address]: Hand I Thermal Cutter/Techni kelle ID = [id number] for MARFIL, JOSE ARMANDO Lab Interpretation (test Abnormal code = 41837-8) [facility] CenterRhwkliAXMR-RCUTPZMAXU9392-40-09 22:43:06 Test Item Value Reference Range Interpretation Comments POC-Hematocrit (test code 24 % 36-45 L : = 1857) Hand I Thermal Cutter/Techni kelle ID = [id number] for MARFIL, JOSE ARMANDO Lab Interpretation (test Abnormal code = 54606-1) [facility]XbhvgiGVSR-EUVYPVZLSS7307-32-09 22:43:06 Test Item Value Reference Range Interpretation Comments POC-HEMOGLOBIN 8.2 g/dL 12.0-15.0 L : TESTED AT [facility] 6720 (BEAKER) (test code = [facility], 1856) [address]: Hand I Thermal Cutter/Techni kelle ID = [id number] for MARF IL, JOSE ARMANDO FJBM-[id number] 22:43:06 Test Item Value Reference Range Interpretation Comments POC-HEMATOCRIT 24 % 36-45 L : Hand I Thermal Cutter/Te chnician ID = (BEAKER) (test code = 401844 for MARFIL, JOSE ARMANDO 1857) AVD-Ayuujnjgu2397-17-09 22:43:05 Test Item Value Reference Range Interpretation Comments POC-Potassium (test code 3.4 meq/L 3.6-5.5 L : T ESTED AT [facility] = 1540) [address] [place] [address], [address] 30: Hand I Thermal Cutter/Techni kelle ID = [id number] for MARFIL, JOSE ARMANDO Lab Interpretation (test Abnormal code = 52020-3) [facility]-Flfqiz1004-67-84 22:43:05 Test Item Value Reference Range Interpretation Comments POC-Sodium (test code = 137 meq/L 135-148 : TE STED AT [facility] 1542) [address] [place] [address], [address] 30: Hand I Thermal Cutter/Techni kelle ID = [id number] for MARFIL, JOSE ARMANDO Lab Interpretation (test Normal code = 18413-7) [facility]-Kzkrqtjtz3744-18-63 22:43:05 Test Item Value Reference Range Interpretation Comments POC-Potassium (test code 3.4 meq/L 3.6-5.5 L : T ESTED AT [facility] = 1540) [address] [place] [address], [address] 30: Hand I Thermal Cutter/Techni kelle ID = [id number] for MARFIL, JOSE ARMANDO Lab Interpretation (test Abnormal code = 19788-4) [facility]-Cujwzn4273-31-80 22:43:05 Test Item Value Reference Range Interpretation Comments POC-Sodium (test code = 137 meq/L 135-148 : TE STED AT [facility] 1542) [address] [place] [address], [address] 30: Hand I Thermal Cutter/Techni kelle ID = [id number] for MARFIL, JOSE ARMANDO Lab Interpretation (test Normal code = 59940-0) [facility]-Dluixpyew3110-64-14 22:43:05 Test Item Value Reference Range Interpretation Comments POC-Potassium (test code 3.4 meq/L 3.6-5.5 L : T ESTED AT [facility] = 1540) [address] [place] [address], [address] 30: Hand I Thermal Cutter/Techni kelle ID = [id number] for MARFIL, JOSE ARMANDO Lab Interpretation (test Abnormal code = 59017-8) [facility]-Kwjage5131-89-14 22:43:05 Test Item Value Reference Range Interpretation Comments POC-Sodium (test code = 137 meq/L 135-148 : TE STED AT [facility] 1542) [address] [place] [address], [address] 30: Hand I Thermal Cutter/Techni kelle ID = [id number] for MARFIL, JOSE ARMANDO Lab Interpretation (test Normal code = 23434-0) [facility]-Dclyppibf1911-26-05 22:43:05 Test Item Value Reference Range Interpretation Comments POC-Potassium (test code 3.4 meq/L 3.6-5.5 L : T ESTED AT [facility] = 1540) [address] [place] [address], [facility] 30: Hand I Thermal Cutter/Techni kelle ID = [id number] for MARFIL, JOSE ARMANDO Lab Interpretation (test Abnormal code = 12357-6) [facility] 22:43:05 Test Item Value Reference Range Interpretation Comments POC-Sodium (test code = 137 meq/L 135-148 : TE STED AT [facility] 1542) [address] [place] [address], [address] 30: Hand I Thermal Cutter/Techni kelle ID = [id number] for MARFIL, JOSE ARMANDO Lab Interpretation (test Normal code = 68277-2) [facility]Rcg[facility]yrl5160-84-12 22:43:05 Test Item Value Reference Range Interpretation Comments POC-Potassium (test code 3.4 meq/L 3.6-5.5 L : T ESTED AT [facility] = 1540) [address] [place] [address], [address] 30: Hand I Thermal Cutter/Techni kelle ID = [id number] for MARFIL, JOSE ARMANDO Lab Interpretation (test Abnormal code = 41314-8) [facility]Vikdmm8752-07-49 22:43:05 Test Item Value Reference Range Interpretation Comments POC-Sodium (test code = 137 meq/L 135-148 : TE STED AT [facility] 1542) [address] [place] [address], [address] 30: Hand I Thermal Cutter/Techni kelle ID = [id number] for MARFIL, JOSE ARMANDO Lab Interpretation (test Normal code = 62593-3) [facility]-Iosurtcqi0703-36-27 22:43:05 Test Item Value Reference Range Interpretation Comments POC-Potassium (test code 3.4 meq/L 3.6-5.5 L : T ESTED AT [facility] = 1540) [address] [place] [address], [facility] 30: Hand I Thermal Cutter/Techni kelle ID = [id number] for MARFIL, JOSE ARMANDO Lab Interpretation (test Abnormal code = 37202-7) [facility]-Fhcchz2201-23-40 22:43:05 Test Item Value Reference Range Interpretation Comments POC-Sodium (test code = 137 meq/L 135-148 : TE STED AT [facility] 1542) [address] [place] [address], [facility] 30: Hand I Thermal Cutter/Techni kelle ID = [id number] for MARFIL, JOSE ARMANDO Lab Interpretation (test Normal code = 86065-9) [facility]-Lcmupsjlw2329-97-54 22:43:05 Test Item Value Reference Range Interpretation Comments POC-Potassium (test code 3.4 meq/L 3.6-5.5 L : T ESTED AT [facility] = 1540) [address] [place] [address], [address] 30: Hand I Thermal Cutter/Techni kelle ID = [id number] for MARFIL, JOSE ARMANDO Lab Interpretation (test Abnormal code = 58398-1) [facility]-Davejo2634-02-58 22:43:05 Test Item Value Reference Range Interpretation Comments POC-Sodium (test code = 137 meq/L 135-148 : TE STED AT [facility] 1542) [address] [place] [address], [facility] 30: Hand I Thermal Cutter/Techni kelle ID = [id number] for MARFIL, JOSE ARMANDO Lab Interpretation (test Normal code = 25815-1) [facility]-Eeocjjaxk9365-29-95 22:43:05 Test Item Value Reference Range Interpretation Comments POC-Potassium (test code 3.4 meq/L 3.6-5.5 L : T ESTED AT [facility] = 1540) [address] [place] [address], [address] 30: Hand I Thermal Cutter/Techni kelle ID = [id number] for MARFIL, JOSE ARMANDO Lab Interpretation (test Abnormal code = 10654-0) [facility]-Ymsecl2883-19-56 22:43:05 Test Item Value Reference Range Interpretation Comments POC-Sodium (test code = 137 meq/L 135-148 : TE STED AT [facility] 1542) [address] [place] [address], [address] 30: Hand I Thermal Cutter/Techni kelle ID = [id number] for MARFIL, JOSE ARMANDO Lab Interpretation (test Normal code = 97702-0) [facility]-Gctvlpmck8771-06-60 22:43:05 Test Item Value Reference Range Interpretation Comments POC-Potassium (test code 3.4 meq/L 3.6-5.5 L : T ESTED AT [facility] = 1540) [address] [place] [address], [address] 30: Hand I Thermal Cutter/Techni kelle ID = [id number] for MARFIL, JOSE ARMANDO Lab Interpretation (test Abnormal code = 12893-2) [facility] HospitalTnhmrq0268-56-30 22:43:05 Test Item Value Reference Range Interpretation Comments POC-Sodium (test code = 137 meq/L 135-148 : TE STED AT [facility] 1542) [address] [place] [address], [facility] 30: Hand I Thermal Cutter/Techni kelle ID = [id number] for MARFIL, JOSE ARMANDO Lab Interpretation (test Normal code = 31003-2) [facility]-Sgaclyhkx5013-44-93 22:43:05 Test Item Value Reference Range Interpretation Comments POC-Potassium (test code 3.4 meq/L 3.6-5.5 L : T ESTED AT [facility] = 1540) [address] [place] [address], [facility] 30: Hand I Thermal Cutter/Techni kelle ID = [id number] for MARFIL, JOSE ARMANDO Lab Interpretation (test Abnormal code = 18910-9) [facility]-Yahpyl9363-55-03 22:43:05 Test Item Value Reference Range Interpretation Comments POC-Sodium (test code = 137 meq/L 135-148 : TE STED AT [facility] 1542) [address] [place] [address], [address] 30: Hand I Thermal Cutter/Techni kelle ID = [id number] for MARFIL, JOSE ARMANDO Lab Interpretation (test Normal code = 67262-5) [facility]-Fioerojkj7085-96-87 22:43:05 Test Item Value Reference Range Interpretation Comments POC-Potassium (test code 3.4 meq/L 3.6-5.5 L : T ESTED AT [facility] = 1540) [address] [place] [address], [address] 30: Hand I Thermal Cutter/Techni kelle ID = [id number] for MARFIL, JOSE ARMANDO Lab Interpretation (test Abnormal code = 91663-9) [facility]-Ouydfw9272-18-31 22:43:05 Test Item Value Reference Range Interpretation Comments POC-Sodium (test code = 137 meq/L 135-148 : TE STED AT [facility] 1542) [address] [place] [address], [address] 30: Hand I Thermal Cutter/Techni kelle ID = [id number] for MARFIL, JOSE ARMANDO Lab Interpretation (test Normal code = 86597-8) [facility]-Jsiqbaank3508-33-13 22:43:05 Test Item Value Reference Range Interpretation Comments POC-Potassium (test code 3.4 meq/L 3.6-5.5 L : T ESTED AT [facility] = 1540) [address] [place] [address], [address] 30: Hand I Thermal Cutter/Techni kelle ID = [id number] for MARFIL, JOSE ARMANDO Lab Interpretation (test Abnormal code = 19489-1) [facility]-Ttgste4941-87-42 22:43:05 Test Item Value Reference Range Interpretation Comments POC-Sodium (test code = 137 meq/L 135-148 : TE STED AT [facility] 1542) [address] [place] [address], [address] 30: Hand I Thermal Cutter/Techni kelle ID = [id number] for MARFIL, JOSE ARMANDO Lab Interpretation (test Normal code = 53560-9) [facility]-Hcyubnddp8706-46-83 22:43:05 Test Item Value Reference Range Interpretation Comments POC-Potassium (test code 3.4 meq/L 3.6-5.5 L : T ESTED AT [facility] = 1540) [address] [place] [address], [address] 30: Hand I Thermal Cutter/Techni kelle ID = [id number] for MARFIL, JOSE ARMANDO Lab Interpretation (test Abnormal code = 05023-0) [facility]-Cpubct7074-41-82 22:43:05 Test Item Value Reference Range Interpretation Comments POC-Sodium (test code = 137 meq/L 135-148 : TE STED AT [facility] 1542) [address] [facility] [place], [address] 30: Hand I Thermal Cutter/Techni kelle ID = [id number] for MARFIL, JOSE ARMANDO Lab Interpretation (test Normal code = 16940-6) [facility]Y-FNCPNS9718-58-09 22:43:05 Test Item Value Reference Range Interpretation Comments POC-SODIUM (BEAKER) 137 meq/L 135-148 : TESTED AT [facility] 6720 (test code = 1542) [place] [address]: Hand I Thermal Cutter/Techni kelle ID = [id number] for MARF IL, JOSE ARMANDO XNIB-[id number] 22:43:05 Test Item Value Reference Range Interpretation Comments POC-POTASSIUM 3.4 meq/L 3.6-5.5 L : TESTED AT [facility] 6720 (BEAKER) (test code [facility], = 1540) [address]: Hand I Thermal Cutter/Techni kelle ID = [id number] for MARF IL, JOSE ARMANDO POC-Blood gases, cypxpg8695-79-70 22:42:59 Test Item Value Reference Range Interpretation Comments Temp. Celsius-POC (test 101.3 code = 1834) FIO2-POC (test code = 28 1835) pH, Venous-POC (test 7.484 7.320-7.420 H : TESTE D AT [facility] code = 1842) [address] [place], [address] PCO2, Venous-POC (test 39.4 See_Comment L If [...] mated message] code = 1844) The system [employer] generated this result transmit levi reference range : 25.0 - 40.0 mm Hg. The reference r alba was not used to interpret this result as normal/abnormal . SO2, Venous-POC (test 87.0 % 40.0-70.0 H code = 1845) HCO3, Venous-POC (test 29.3 meq/L 21.0-29.0 H code = 1846) BE, Venous-POC (test 6.0 meq/L -2.0-3.0 H : code = 1847) Hand I Thermal Cutter/Techni kelle ID = [id number] for MARFIL, JOSE ARMANDO Lab Interpretation Abnormal (test code = 07488-8) [facility]-Blood gases, [id number] 22:42:59 Test Item Value Reference Range Interpretation Comments Temp. Celsius-POC (test 101.3 code = 1834) FIO2-POC (test code = 28 1835) pH, Venous-POC (test 7.484 7.320-7.420 H : TESTE D AT [facility] code = 1842) [address] [place], [address] PCO2, Venous-POC (test 39.4 See_Comment L If [...] mated message] code = 1844) The system [employer] generated this result transmit lvei reference range : 25.0 - 40.0 mm Hg. The reference r alba was not used to interpret this result as normal/abnormal . SO2, Venous-POC (test 87.0 % 40.0-70.0 H code = 1845) HCO3, Venous-POC (test 29.3 meq/L 21.0-29.0 H code = 1846) BE, Venous-POC (test 6.0 meq/L -2.0-3.0 H : code = 1847) Hand I Thermal Cutter/Techni kelle ID = [id number] for MARFIL, JOSE ARMANDO Lab Interpretation Abnormal (test code = 39051-2) [facility]-Blood gases, [id number] 22:42:59 Test Item Value Reference Range Interpretation Comments Temp. Celsius-POC (test 101.3 code = 1834) FIO2-POC (test code = 28 5) pH, Venous-POC (test 7.484 7.320-7.420 H : TESTE D AT [facility] code = 1842) [address] [place], [address] PCO2, Venous-POC (test 39.4 See_Comment L If [...] mated message] code = 1844) The system [employer] generated this result transmit levi reference range : 25.0 - 40.0 mm Hg. The reference r alba was not used to interpret this result as normal/abnormal . SO2, Venous-POC (test 87.0 % 40.0-70.0 H code = 1845) HCO3, Venous-POC (test 29.3 meq/L 21.0-29.0 H code = 1846) BE, Venous-POC (test 6.0 meq/L -2.0-3.0 H : code = 1847) Hand I Thermal Cutter/Techni kelle ID = [id number] for JOSE ARMANDO CELIS Lab Interpretation Abnormal (test code = 92295-9) [facility]-Blood gases, [id number] 22:42:59 Test Item Value Reference Range Interpretation Comments Temp. Celsius-POC (test 101.3 code = 1834) FIO2-POC (test code = 28 1835) pH, Venous-POC (test 7.484 7.320-7.420 H : TESTE D AT [facility] code = 1842) [address] [place], [address] PCO2, Venous-POC (test 39.4 See_Comment L If [...] mated message] code = 1844) The system [employer] generated this result transmit levi reference range : 25.0 - 40.0 mm Hg. The reference r alba was not used to interpret this result as normal/abnormal . SO2, Venous-POC (test 87.0 % 40.0-70.0 H code = 1845) HCO3, Venous-POC (test 29.3 meq/L 21.0-29.0 H code = 1846) BE, Venous-POC (test 6.0 meq/L -2.0-3.0 H : code = 1847) Hand I Thermal Cutter/Techni kelle ID = [id number] for MARFIL, JOSE ARMANDO Lab Interpretation Abnormal (test code = 27026-1) [facility]-Blood gases, [id number] 22:42:59 Test Item Value Reference Range Interpretation Comments Temp. Celsius-POC (test 101.3 code = 1834) FIO2-POC (test code = 28 1835) pH, Venous-POC (test 7.484 7.320-7.420 H : TESTE D AT [facility] code = 1842) [address] [place], [address] PCO2, Venous-POC (test 39.4 See_Comment L If [...] mated message] code = 1844) The system [employer] h generated this result transmit levi reference range : 25.0 - 40.0 mm Hg. The reference r alba was not used to interpret this result as normal/abnormal . SO2, Venous-POC (test 87.0 % 40.0-70.0 H code = 1845) HCO3, Venous-POC (test 29.3 meq/L 21.0-29.0 H code = 1846) BE, Venous-POC (test 6.0 meq/L -2.0-3.0 H : code = 1847) Hand I Thermal Cutter/Techni kelle ID = [id number] for MARFIL, JOSE ARMANDO Lab Interpretation Abnormal (test code = 23000-9) [facility]-Blood gases, [id number] 22:42:59 Test Item Value Reference Range Interpretation Comments Temp. Celsius-POC (test 101.3 code = 1834) FIO2-POC (test code = 28 5) pH, Venous-POC (test 7.484 7.320-7.420 H : TESTE D AT [facility] code = 1842) [address] [place], [address] PCO2, Venous-POC (test 39.4 See_Comment L If [...] mated message] code = 1844) The system [employer] h generated this result transmit levi reference range : 25.0 - 40.0 mm Hg. The reference r alba was not used to interpret this result as normal/abnormal . SO2, Venous-POC (test 87.0 % 40.0-70.0 H code = 1845) HCO3, Venous-POC (test 29.3 meq/L 21.0-29.0 H code = 1846) BE, Venous-POC (test 6.0 meq/L -2.0-3.0 H : code = 1847) Hand I Thermal Cutter/Techni kelle ID = [id number] for JOSE ARMANDO CELIS Lab Interpretation Abnormal (test code = 34163-2) [facility]-Blood gases, [id number] 22:42:59 Test Item Value Reference Range Interpretation Comments Temp. Celsius-POC (test 101.3 code = 1834) FIO2-POC (test code = 5) pH, Venous-POC (test 7.484 7.320-7.420 H : TESTE D AT [facility] code = 1842) [address] [facility], [address] PCO2, Venous-POC (test 39.4 See_Comment L If [...] mated message] code = 1844) The system [employer] generated this result transmit levi reference range : 25.0 - 40.0 mm Hg. The reference r alba was not used to interpret this result as normal/abnormal . SO2, Venous-POC (test 87.0 % 40.0-70.0 H code = 1845) HCO3, Venous-POC (test 29.3 meq/L 21.0-29.0 H code = 1846) BE, Venous-POC (test 6.0 meq/L -2.0-3.0 H : code = 1847) Hand I Thermal Cutter/Techni kelle ID = [id number] for LAURELJOANN JOSE ARMANDO Lab Interpretation Abnormal (test code = 78667-4) [facility]-Blood gases, [id number] 22:42:59 Test Item Value Reference Range Interpretation Comments Temp. Celsius-POC (test 101.3 code = 1834) FIO2-POC (test code = 28 1835) pH, Venous-POC (test 7.484 7.320-7.420 H : TESTE D AT [facility] code = 1842) [address] [place], [address] PCO2, Venous-POC (test 39.4 See_Comment L If [...] mated message] code = 1844) The system [employer] generated this result transmit levi reference range : 25.0 - 40.0 mm Hg. The reference r alba was not used to interpret this result as normal/abnormal . SO2, Venous-POC (test 87.0 % 40.0-70.0 H code = 1845) HCO3, Venous-POC (test 29.3 meq/L 21.0-29.0 H code = 1846) BE, Venous-POC (test 6.0 meq/L -2.0-3.0 H : code = 1847) Hand I Thermal Cutter/Techni kelle ID = [id number] for MARFIL, JOSE ARMANDO Lab Interpretation Abnormal (test code = 10334-6) [facility]-Blood gases, [id number] 22:42:59 Test Item Value Reference Range Interpretation Comments Temp. Celsius-POC (test 101.3 code = 1834) FIO2-POC (test code = 28 5) pH, Venous-POC (test 7.484 7.320-7.420 H : TESTE D AT [facility] code = 1842) [address] [place], [address] PCO2, Venous-POC (test 39.4 See_Comment L If [...] mated message] code = 1844) The system [employer] generated this result transmit levi reference range : 25.0 - 40.0 mm Hg. The reference r alba was not used to interpret this result as normal/abnormal . SO2, Venous-POC (test 87.0 % 40.0-70.0 H code = 1845) HCO3, Venous-POC (test 29.3 meq/L 21.0-29.0 H code = 1846) BE, Venous-POC (test 6.0 meq/L -2.0-3.0 H : code = 1847) Hand I Thermal Cutter/Techni kelle ID = [id number] for MARFIL, JOSE ARMANDO Lab Interpretation Abnormal (test code = 10986-0) [facility]-Blood gases, [id number] 22:42:59 Test Item Value Reference Range Interpretation Comments Temp. Celsius-POC (test 101.3 code = 1834) FIO2-POC (test code = 28 5) pH, Venous-POC (test 7.484 7.320-7.420 H : TESTE D AT [facility] code = 1842) [address] [place], [address] PCO2, Venous-POC (test 39.4 See_Comment L If [...] mated message] code = 1844) The system [employer] generated this result transmit levi reference range : 25.0 - 40.0 mm Hg. The reference r alba was not used to interpret this result as normal/abnormal . SO2, Venous-POC (test 87.0 % 40.0-70.0 H code = 1845) HCO3, Venous-POC (test 29.3 meq/L 21.0-29.0 H code = 1846) BE, Venous-POC (test 6.0 meq/L -2.0-3.0 H : code = 1847) Hand I Thermal Cutter/Techni kelle ID = [id number] for MARJOSE ARMANDO DAVID Lab Interpretation Abnormal (test code = 61659-6) [facility]-Blood gases, [id number] 22:42:59 Test Item Value Reference Range Interpretation Comments Temp. Celsius-POC (test 101.3 code = 1834) FIO2-POC (test code = 28 1835) pH, Venous-POC (test 7.484 7.320-7.420 H : TESTE D AT [facility] code = 1842) [address] [facility], [address] PCO2, Venous-POC (test 39.4 See_Comment L If [...] mated message] code = 1844) The system [employer] generated this result transmit levi reference range : 25.0 - 40.0 mm Hg. The reference r alba was not used to interpret this result as normal/abnormal . SO2, Venous-POC (test 87.0 % 40.0-70.0 H code = 1845) HCO3, Venous-POC (test 29.3 meq/L 21.0-29.0 H code = 1846) BE, Venous-POC (test 6.0 meq/L -2.0-3.0 H : code = 1847) Hand I Thermal Cutter/Techni kelle ID = [id number] for MARFIL, JOSE ARMANDO Lab Interpretation Abnormal (test code = 61735-6) [facility]-Blood gases, [id number] 22:42:59 Test Item Value Reference Range Interpretation Comments Temp. Celsius-POC (test 101.3 code = 1834) FIO2-POC (test code = 28 183) pH, Venous-POC (test 7.484 7.320-7.420 H : TESTE D AT [facility] code = 1842) [address] [facility] [place], [address] PCO2, Venous-POC (test 39.4 See_Comment L If [...] mated message] code = 1844) The system [employer] generated this result transmit levi reference range : 25.0 - 40.0 mm Hg. The reference r alba was not used to interpret this result as normal/abnormal . SO2, Venous-POC (test 87.0 % 40.0-70.0 H code = 1845) HCO3, Venous-POC (test 29.3 meq/L 21.0-29.0 H code = 1846) BE, Venous-POC (test 6.0 meq/L -2.0-3.0 H : code = 1847) Hand I Thermal Cutter/Techni kelle ID = [id number] for MARFIL, JOSE ARMANDO Lab Interpretation Abnormal (test code = 93601-6) [facility]-Blood gases, [id number] 22:42:59 Test Item Value Reference Range Interpretation Comments Temp. Celsius-POC (test 101.3 code = 1834) FIO2-POC (test code = 28 5) pH, Venous-POC (test 7.484 7.320-7.420 H : TESTE D AT [facility] code = 1842) [address] [place], [address] PCO2, Venous-POC (test 39.4 See_Comment L If [...] mated message] code = 1844) The system [employer] generated this result transmit levi reference range : 25.0 - 40.0 mm Hg. The reference r alba was not used to interpret this result as normal/abnormal . SO2, Venous-POC (test 87.0 % 40.0-70.0 H code = 1845) HCO3, Venous-POC (test 29.3 meq/L 21.0-29.0 H code = 1846) BE, Venous-POC (test 6.0 meq/L -2.0-3.0 H : code = 1847) Hand I Thermal Cutter/Techni kelle ID = [id number] for VIMAL JOSE ARMANDO Lab Interpretation Abnormal (test code = 01969-0) [facility] [id number] 22:42:59 Test Item Value Reference Range Interpretation Comments TEMP, CELSIUS-POC 101.3 (BEAKER) (test code = 1834) FIO2-POC (BEAKER) 28 (test code = 1835) PH, VENOUS-POC 7.484 7.320-7.420 H : TESTED AT [facility] [address] (BEAKER) (test code [place], = 1842) [address] PCO2, VENOUS-POC 39.4 mm Hg 41.0-51.0 L If pO2 is > 180, pCO2 may (BEAKER) (test code be posit ively biased = 1843) PO2, VENOUS-POC 53.0 mm Hg 25.0-40.0 H (BEAKER) (test code = 1844) SO2, VENOUS-POC 87.0 % 40.0-70.0 H (BEAKER) (test code = 1845) HCO3, VENOUS-POC 29.3 meq/L 21.0-29.0 H (AKER) (test code = 1846) BASE EXCESS, 6.0 meq/L -2.0-3.0 H : Hand I Thermal Cutter/Tech shitalian ID VENOUS-POC [facility] = [id number] for MARFIL, (test code = 1847) JOSE ARMANDO LACTIC ACID, [id number] 22:23:56 Test Item Value Reference Range Interpretation Comments LACTATE BLOOD VENOUS 0.92 mmol/L 0.50-2.20 Specime n moderately (2) ([facility]) (test hemolyzed code = 2872) Hand I Thermal Cutter ID - BSPOCT-GLUCOSE [id number] 21:35:23 Test Item Value Reference Range Interpretation Comments POC-GLUCOSE METER 125 mg/dL 70-110 H : TESTED A T [facility] [address] ([facility]) (test code = [facility], 1538) [address]: Hand I Thermal Cutter/Techni kelle ID = [id number] for UG EM HAMLINA POCT-GLUCOSE [id number] 17:05:43 Test Item Value Reference Range Interpretation Comments POC-GLUCOSE METER 224 mg/dL 70-110 H : TESTED A T [facility] [address] ([facility]) (test code = [facility], 1538) [address]: Hand I Thermal Cutter/Techni kelle ID = [id number] for Re yes, Maranda POCT-GLUCOSE [id number] 16:33:44 Test Item Value Reference Range Interpretation Comments POC-GLUCOSE METER 108 mg/dL 70-110 : TESTED A T [facility] [address] ([facility]) (test code = [facility], 1538) [address]: Hand I Thermal Cutter/Techni kelle ID = [id number] for Ag Herminia ball POCT-GLUCOSE [id number] 07:38:21 Test Item Value Reference Range Interpretation Comments POC-GLUCOSE METER 185 mg/dL 70-110 H : TESTED A T [facility] [address] ([facility] (test code = [facility], 1538) [address]: Hand I Thermal Cutter/Techni kelle ID = [id number] for Re yes, Maranda BASIC METABOLIC [id number] 07:20:13 Test Item Value Reference Range Interpretation [...] S NOT APPLICABLE FOR DIALYSIS PATIEN TS. Hand I Thermal Cutter ID - HIEN [id number] 06:54:10 Test Item Value Reference Range Interpretation Comments PHOSPHORUS (BEAKER) (test code = 4.6 mg/dL 2.3-4.7 604) Hand I Thermal Cutter ID - HIEN [id number] 06:54:09 Test Item Value Reference Range Interpretation Comments MAGNESIUM (BEAKER) (test code = 2.2 mg/dL 1.6-2.6 627) Hand I Thermal Cutter ID - HIEN [facility] W/PLT COUNT & AUTO [id number] 04:53:46 Test Item Value Reference Range Interpretation [...] PERCENT (BEAKER) (test code = 2801) POCT-GLUCOSE [id number] 21:34:14 Test Item Value Reference Range Interpretation Comments POC-GLUCOSE METER 260 mg/dL 70-110 H : TESTED A T [facility] [address] (BEAKER) ([facility] 1538[facility] [address]: Hand I Thermal Cutter/Techni kelle ID = [id number] for GHADA BECK POCT-GLUCOSE [id number] 16:27:30 Test Item Value Reference Range Interpretation Comments POC-GLUCOSE METER 170 mg/dL 70-110 H : TESTED A T [facility] [address] (BEAKER) (test code = [place]UDY [place] [facility], 1538) [address]: Hand I Thermal Cutter/Techni kelle ID = [id number] for Soledad Rivera 2D Echo W/Doppler(CW/PW/Color)2021-06-09 16:08:58Ejection FractionSLEH [facility]CHO [facility]Do[facility](CW/PW/Color)2021-06-09 16:08:58Ejection FractionSLEH ECHO [facility]ARTLAB [facility] W/Doppler(CW/PW/Color) 2021-06-09 16:08:58Ejection FractionSLEH ECHO [facility] W/Doppler(CW/PW/Color)2021-06-09 16:08:58Ejection FractionSLEH ECHO HEARTLAB [facility] Echo W/Doppler(CW/PW/Color)2021-06-09 16:08:58Ejection FractionSLEH ECHO [facility]ARTLAB [facility] W/Doppler(CW/PW/Color) 2021-06-09 16:08:58Ejection FractionSLEH ECHO [facility]ARTLAB [facility] W/Doppler(CW/PW/Color)2021-06-09 16:08:58Ejection FractionSLEH ECHO [facility]ARTLAB [facility] W/Doppler(CW/PW/Color)2021-06-09 16:08:58Ejection FractionSLEH ECHO HEARTLAB [facility] W/Doppler(CW/PW/Color) 2021-06-09 16:08:58Ejection FractionSLEH ECHO HEARTLAB [facility] W/Doppler(CW/PW/Color)2021-06-09 16:08:58Ejection FractionSLEH ECHO HEARTLAB [facility] W/Doppler(CW/PW/Color)2021-06-09 16:08:58Ejection FractionSLEH ECHO HEARTLAB [facility] Echo W/Doppler(CW/PW/Color) 2021-06-09 16:08:58Ejection FractionSLEH ECHO HEARTLAB SHANDRA [facility]2D Echo W/Doppler(CW/PW/Color)2021-06-09 16:08:58Ejection FractionSLEH ECHO HEARTLAB MKALIDA [facility] Transesophageal [id number] 16:06:54Ejection FractionSLEH ECHO HEARTLAB SHANDRA [facility] [id number] 16:06:54Ejection FractionSLEH ECHO HEARTLAB SHANDRA [facility] [id number] 16:06:54Ejection FractionSLEH ECHO HEARTLAB SHANDRA [facility] [id number] 16:06:54Ejection FractionSLEH ECHO HEARTLAB SHANDRA [facility] [id number] 16:06:54Ejection FractionSLEH ECHO HEARTLAB SHANDRA [facility] [id number] 16:06:54Ejection FractionSLEH ECHO HEARTLAB SHANDRA [facility] [id number] 16:06:54Ejection FractionSLEH ECHO HEARTLAB SHANDRA [facility] [id number] 16:06:54Ejection FractionSLEH ECHO HEARTLAB DERRELLON [facility] [id number] 16:06:54Ejection FractionSLEH ECHO HEARTLAB MKALIDA [facility] [id number] 16:06:54Ejection FractionSLEH ECHO HEARTLAB DERRELLON [facility] [id number] 16:06:54Ejection FractionSLEH ECHO HEARTLAB MKALIDA [facility] [id number] 16:06:54Ejection FractionSLEH ECHO HEARTLAB MKESTEFANIAON [facility] [id number] 16:06:54Ejection FractionSLEH ECHO HEARTLAB MKCKESSON CPACSCHI [facility] [id number] 06:23:12 Test Item Value Reference Range Interpretation Comments POC-GLUCOSE METER 250 mg/dL 70-110 H : TESTED A T [facility] [address] (BEAKER) (test code = [place], 1538) [address]: Hand I Thermal Cutter/Techni kelle ID = [id number] for Tavia Bruce BASIC METABOLIC [id number] 04:37:07 Test Item Value Reference Range Interpretation [...] S NOT APPLICABLE FOR DIALYSIS PATIEN TS. Hand I Thermal Cutter ID - RAKAN [id number] 04:30:49 Test Item Value Reference Range Interpretation Comments PHOSPHORUS (BEAKER) (test code = 3.8 mg/dL 2.3-4.7 604) Hand I Thermal Cutter ID - RAKAN [id number] 04:30:48 Test Item Value Reference Range Interpretation Comments MAGNESIUM (BEAKER) (test code = 2.0 mg/dL 1.6-2.6 627) Hand I Thermal Cutter ID Bassam [facility] W/PLT COUNT & AUTO [id number] 03:53:11 Test Item Value Reference Range Interpretation [...] (BEAKER) (test code = 2801) Hepatitis panel, [id number] 23:49:54 Test Item Value Reference Range Interpretation Comments Hep A IgM (test code = Nonreactive Nonreactive 52936-8) Hep B C IgM (test code = Nonreactive Nonreactive 97719-6) Hepatitis C Ab (test code = Nonreactive Nonreactive 12844-3) Hepatitis B surface antigen Nonreactive Nonreactive (test code = 5195-3) BRANDI (test code = BRANDI) Hand I Thermal Cutter ID - DB Lab Interpretation (test Normal code = 53452-5) [facility] [id number] 23:49:54 Test Item Value Reference Range Interpretation Comments Hep A IgM (test code = Nonreactive Nonreactive 95023-5) Hep B C IgM (test code = Nonreactive Nonreactive 75047-2) Hepatitis C Ab (test code = Nonreactive Nonreactive 01076-8) Hepatitis B surface antigen Nonreactive Nonreactive (test code = 5195-3) BRANDI (test code = BRANDI) Hand I Thermal Cutter ID - DB Lab Interpretation (test Normal code = 14612-9) [facility], [id number] 23:49:54 Test Item Value Reference Range Interpretation Comments Hep A IgM (test code = Nonreactive Nonreactive 90363-6) Hep B C IgM (test code = Nonreactive Nonreactive 19363-0) Hepatitis C Ab (test code = Nonreactive Nonreactive 23618-8) Hepatitis B surface antigen Nonreactive Nonreactive (test code = 5195-3) BRANDI (test code = BRANDI) Hand I Thermal Cutter ID - DB Lab Interpretation (test Normal code = 02468-0) [facility], [id number] 23:49:54 Test Item Value Reference Range Interpretation Comments Hep A IgM (test code = Nonreactive Nonreactive 35011-5) Hep B C IgM (test code = Nonreactive Nonreactive 68270-9) Hepatitis C Ab (test code = Nonreactive Nonreactive 80097-3) Hepatitis B surface antigen Nonreactive Nonreactive (test code = 5195-3) BRANDI (test code = BRANDI) Hand I Thermal Cutter ID - DB Lab Interpretation (test Normal code = 80749-4) [facility], [id number] 23:49:54 Test Item Value Reference Range Interpretation Comments Hep A IgM (test code = Nonreactive Nonreactive 95056-7) Hep B C IgM (test code = Nonreactive Nonreactive 92106-8) Hepatitis C Ab (test code = Nonreactive Nonreactive 97603-0) Hepatitis B surface antigen Nonreactive Nonreactive (test code = 5195-3) BRANID (test code = BRANDI) Hand I Thermal Cutter ID - DB Lab Interpretation (test Normal code = 36148-0) [facility] panel, [id number] 23:49:54 Test Item Value Reference Range Interpretation Comments Hep A IgM (test code = Nonreactive Nonreactive 60659-6) Hep B C IgM (test code = Nonreactive Nonreactive 07622-3) Hepatitis C Ab (test code = Nonreactive Nonreactive 81873-0) Hepatitis B surface antigen Nonreactive Nonreactive (test code = 5195-3) BRANDI (test code = BRANDI) Hand I Thermal Cutter ID - DB Lab Interpretation (test Normal code = 25766-5) [facility] panel, [id number] 23:49:54 Test Item Value Reference Range Interpretation Comments Hep A IgM (test code = Nonreactive Nonreactive 65509-6) Hep B C IgM (test code = Nonreactive Nonreactive 54785-5) Hepatitis C Ab (test code = Nonreactive Nonreactive 30901-0) Hepatitis B surface antigen Nonreactive Nonreactive (test code = 5195-3) BRANDI (test code = BRANDI) Hand I Thermal Cutter ID - DB Lab Interpretation (test Normal code = 07001-9) [facility] panel, [id number] 23:49:54 Test Item Value Reference Range Interpretation Comments Hep A IgM (test code = Nonreactive Nonreactive 22872-8) Hep B C IgM (test code = Nonreactive Nonreactive 74645-4) Hepatitis C Ab (test code = Nonreactive Nonreactive 27896-8) Hepatitis B surface antigen Nonreactive Nonreactive (test code = 5195-3) BRANDI (test code = BRANDI) Hand I Thermal Cutter ID - DB Lab Interpretation (test Normal code = 89583-1) [facility] panel, [id number] 23:49:54 Test Item Value Reference Range Interpretation Comments Hep A IgM (test code = Nonreactive Nonreactive 31428-8) Hep B C IgM (test code = Nonreactive Nonreactive 34658-2) Hepatitis C Ab (test code = Nonreactive Nonreactive 07771-2) Hepatitis B surface antigen Nonreactive Nonreactive (test code = 5195-3) BRANDI (test code = BRANDI) Hand I Thermal Cutter ID - DB Lab Interpretation (test Normal code = 28411-7) [facility] panel, [id number] 23:49:54 Test Item Value Reference Range Interpretation Comments Hep A IgM (test code = Nonreactive Nonreactive 23744-7) Hep B C IgM (test code = Nonreactive Nonreactive 36922-0) Hepatitis C Ab (test code = Nonreactive Nonreactive 97349-3) Hepatitis B surface antigen Nonreactive Nonreactive (test code = 5195-3) BRANDI (test code = BRANDI) Hand I Thermal Cutter ID - DB Lab Interpretation (test Normal code = 32835-2) [facility] panel, [id number] 23:49:54 Test Item Value Reference Range Interpretation Comments Hep A IgM (test code = Nonreactive Nonreactive 43303-0) Hep B C IgM (test code = Nonreactive Nonreactive 44508-1) Hepatitis C Ab (test code = Nonreactive Nonreactive 90853-7) Hepatitis B surface antigen Nonreactive Nonreactive (test code = 5195-3) BRANDI (test code = BRANDI) Hand I Thermal Cutter ID - DB Lab Interpretation (test Normal code = 12387-2) [facility] panel, [id number] 23:49:54 Test Item Value Reference Range Interpretation Comments Hep A IgM (test code = Nonreactive Nonreactive 91778-2) Hep B C IgM (test code = Nonreactive Nonreactive 30589-2) Hepatitis C Ab (test code = Nonreactive Nonreactive 73412-2) Hepatitis B surface antigen Nonreactive Nonreactive (test code = 5195-3) BRANDI (test code = BRANDI) Hand I Thermal Cutter ID - DB Lab Interpretation (test Normal code = 24323-5) [facility] panel, [id number] 23:49:54 Test Item Value Reference Range Interpretation Comments Hep A IgM (test code = Nonreactive Nonreactive 45069-0) Hep B C IgM (test code = Nonreactive Nonreactive 85698-1) Hepatitis C Ab (test code = Nonreactive Nonreactive 16229-3) Hepatitis B surface antigen Nonreactive Nonreactive (test code = 5195-3) BRANDI (test code = BRANDI) Hand I Thermal Cutter ID - DB Lab Interpretation (test Normal code = 18979-5) [facility] [id number] 23:49:54 Test Item Value Reference Range Interpretation Comments HEPATITIS A IGM ANTIBODY (BEAKER) Nonreactive Nonreactive (test code = 498) HEPATITIS B CORE IGM ANTIBODY Nonreactive Nonreactive (BEAKER) (test code = 645) HEPATITIS C ANTIBODY (BEAKER) Nonreactive Nonreactive (test code = 367) HEPATITIS B SURFACE ANTIGEN (2) Nonreactive Nonreactive (BEAKER) (test code = 2585) Hand I Thermal Cutter ID - DBPOCT-GLUCOSE [id number] 21:22:04 Test Item Value Reference Range Interpretation Comments POC-GLUCOSE METER 193 mg/dL 70-110 H : TESTED A T [facility] [address] (BEAKER) (test code = [place], 1538) [address]: Hand I Thermal Cutter/Techni kelle ID = [id number] for Tavia Bruce Hepatitis B surface [id number] 13:29:36 Test Item Value Reference Range Interpretation Comments Hepatitis B surface Nonreactive Nonreactive antigen (test code = 5195-3) BRANDI (test code = BRANDI) Specimen is considered negative for HBsAg. Lab Interpretation (test Normal code = 99654-7) [facility] B surface [id number] 13:29:36 Test Item Value Reference Range Interpretation Comments Hepatitis B surface Nonreactive Nonreactive antigen (test code = 5195-3) BRANDI (test code = BRANDI) Specimen is considered negative for HBsAg. Lab Interpretation (test Normal code = 10363-8) [facility] B surface [id number] 13:29:36 Test Item Value Reference Range Interpretation Comments Hepatitis B surface Nonreactive Nonreactive antigen (test code = 5195-3) BRANDI (test code = BRANDI) Specimen is considered negative for HBsAg. Lab Interpretation (test Normal code = 83500-8) [facility] B surface [id number] 13:29:36 Test Item Value Reference Range Interpretation Comments Hepatitis B surface Nonreactive Nonreactive antigen (test code = 5195-3) BRANDI (test code = BRANDI) Specimen is considered negative for HBsAg. Lab Interpretation (test Normal code = 71640-8) [facility] [id number] 13:29:36 Test Item Value Reference Range Interpretation Comments Hepatitis B surface Nonreactive Nonreactive antigen (test code = 5195-3) BRANDI (test code = BRANDI) Specimen is considered negative for HBsAg. Lab Interpretation (test Normal code = 13550-7) [facility] B surface [id number] 13:29:36 Test Item Value Reference Range Interpretation Comments Hepatitis B surface Nonreactive Nonreactive antigen (test code = 5195-3) BRANDI (test code = BRANDI) Specimen is considered negative for HBsAg. Lab Interpretation (test Normal code = 25722-4) [facility] B surface [id number] 13:29:36 Test Item Value Reference Range Interpretation Comments Hepatitis B surface Nonreactive Nonreactive antigen (test code = 5195-3) BRANDI (test code = BRANDI) Specimen is considered negative for HBsAg. Lab Interpretation (test Normal code = 68334-6) [facility] B surface [id number] 13:29:36 Test Item Value Reference Range Interpretation Comments Hepatitis B surface Nonreactive Nonreactive antigen (test code = 5195-3) BRANDI (test code = BRANDI) Specimen is considered negative for HBsAg. Lab Interpretation (test Normal code = 82010-5) [facility] [id number] 13:29:36 Test Item Value Reference Range Interpretation Comments Hepatitis B surface Nonreactive Nonreactive antigen (test code = 5195-3) BRANDI (test code = BRANDI) Specimen is considered negative for HBsAg. Lab Interpretation (test Normal code = 93373-2) [facility] [id number] 13:29:36 Test Item Value Reference Range Interpretation Comments Hepatitis B surface Nonreactive Nonreactive antigen (test code = 5195-3) BRANDI (test code = BRANDI) Specimen is considered negative for HBsAg. Lab Interpretation (test Normal code = 93012-2) [facility] [id number] 13:29:36 Test Item Value Reference Range Interpretation Comments Hepatitis B surface Nonreactive Nonreactive antigen (test code = 5195-3) BRANDI (test code = BRANDI) Specimen is considered negative for HBsAg. Lab Interpretation (test Normal code = 29786-1) [facility] [id number] 13:29:36 Test Item Value Reference Range Interpretation Comments Hepatitis B surface Nonreactive Nonreactive antigen (test code = 5195-3) BRANDI (test code = BRANDI) Specimen is considered negative for HBsAg. Lab Interpretation (test Normal code = 87729-7) [facility] B surface [id number] 13:29:36 Test Item Value Reference Range Interpretation Comments Hepatitis B surface Nonreactive Nonreactive antigen (test code = 5195-3) BRANID (test code = BRANDI) Specimen is considered negative for HBsAg. Lab Interpretation (test Normal code = 32280-5) [facility] B SURFACE [id number] 13:29:36 Test Item Value Reference Range Interpretation Comments HEPATITIS B SURFACE ANTIGEN (2) Nonreactive Nonreactive (BEAKER) (test code = 2585) Specimen is considered negative for HBsAg.U/S, ABDOMINAL, [id number] 13:10:00Abdomen limited area? Add comment if clarification is needed.- >LiverReason for exam:->hepatic nodularity reported [facility] : 1955 Sex: FFINAL REPORT TECHNIQUE: Grayscale [...] disease to exclude cirrhosis. Signed: Florian Webb MDRhospital for special care Verified Date/Time: 06/08/2021 13:10:45 SARS-COV2/RT-PCR ([facility])2021-06-08 12:35:29 Test Item Value Reference Range Interpretation Comments SARS-COV2/RT-PCR (test Negative Not Detected, Negative, code = 0659100) See external report for linked test SARS-COV-2 PERFORMING LAB [facility] FILIPE (test code = 0539102) Negative result for this test determines that [...] of the Act.Fact Sheet for Healthcare Prov iders:https://www.Visto/sites/default/files/product/documents/Fact_Sheet_HC _Edzawpbeh_Bzbi_EWMU-OvF-7.pdfFact Sheet for Healthcare Patients:https://www.MiNOWireless.[place]/sites/default/files/product/docume nts/Azon_Dovln_Agvosvlm_Lish_RZNU-PxR-3.pdfPerforming Laboratory:[facility], [place] [address]Dolauhi D, 25-Hydroxy 2021-06-08 11:10:06 Test Item Value Reference Range Interpretation Comments Vitamin D 25-Hydroxy 16.7 ng/mL 6.6-49.9 (test code = 2764) BRANDI (test code = BRANDI) Effective 01/12/2017: Reference Range ChangeNew: 6.6-49.9 ng/mL Previous: 13.0-47.8 ng/mL Recommended Vitamin D Target Range: 30.0-40.0 ng/mLOperator ID - DB Lab Interpretation (test Normal code = 43097-9) [facility], 90-Tncfaef2018-05-07 11:10:06 Test Item Value Reference Range Interpretation Comments Vitamin D 25-Hydroxy 16.7 ng/mL 6.6-49.9 (test code = 2764) BRANDI (test code = BRANDI) Effective 01/12/2017: Reference Range ChangeNew: 6.6-49.9 ng/mL Previous: 13.0-47.8 ng/mL Recommended Vitamin D Target Range: 30.0-40.0 ng/mLOperator ID - DB Lab Interpretation (test Normal code = 65791-4) [facility], 28-[id number] 11:10:06 Test Item Value Reference Range Interpretation Comments Vitamin D 25-Hydroxy 16.7 ng/mL 6.6-49.9 (test code = 2764) BRANDI (test code = BRANDI) Effective 01/12/2017: Reference Range ChangeNew: 6.6-49.9 ng/mL Previous: 13.0-47.8 ng/mL Recommended Vitamin D Target Range: 30.0-40.0 ng/mLOperator ID - DB Lab Interpretation (test Normal code = 89377-8) [facility], 85-Jjjixnz0709-14-07 11:10:06 Test Item Value Reference Range Interpretation Comments Vitamin D 25-Hydroxy 16.7 ng/mL 6.6-49.9 (test code = 2764) BRANDI (test code = BARNDI) Effective 01/12/2017: Reference Range ChangeNew: 6.6-49.9 ng/mL Previous: 13.0-47.8 ng/mL Recommended Vitamin D Target Range: 30.0-40.0 ng/mLOperator ID - DB Lab Interpretation (test Normal code = 99708-0) [facility], 61-Ybviwda6706-87-07 11:10:06 Test Item Value Reference Range Interpretation Comments Vitamin D 25-Hydroxy 16.7 ng/mL 6.6-49.9 (test code = 2764) BRANDI (test code = BRANDI) Effective 01/12/2017: Reference Range ChangeNew: 6.6-49.9 ng/mL Previous: 13.0-47.8 ng/mL Recommended Vitamin D Target Range: 30.0-40.0 ng/mLOperator ID - DB Lab Interpretation (test Normal code = 02538-8) [facility], 54-[id number] 11:10:06 Test Item Value Reference Range Interpretation Comments Vitamin D 25-Hydroxy 16.7 ng/mL 6.6-49.9 (test code = 2764) BRANDI (test code = BRANDI) Effective 01/12/2017: Reference Range ChangeNew: 6.6-49.9 ng/mL Previous: 13.0-47.8 ng/mL Recommended Vitamin D Target Range: 30.0-40.0 ng/mLOperator ID - DB Lab Interpretation (test Normal code = 33101-2) [facility], 73-[id number] 11:10:06 Test Item Value Reference Range Interpretation Comments Vitamin D 25-Hydroxy 16.7 ng/mL 6.6-49.9 (test code = 2764) BRANDI (test code = BRANDI) Effective 01/12/2017: Reference Range ChangeNew: 6.6-49.9 ng/mL Previous: 13.0-47.8 ng/mL Recommended Vitamin D Target Range: 30.0-40.0 ng/mLOperator ID - DB Lab Interpretation (test Normal code = 13486-8) [facility], 94-[id number] 11:10:06 Test Item Value Reference Range Interpretation Comments Vitamin D 25-Hydroxy 16.7 ng/mL 6.6-49.9 (test code = 2764) BRANDI (test code = BRANDI) Effective 01/12/2017: Reference Range ChangeNew: 6.6-49.9 ng/mL Previous: 13.0-47.8 ng/mL Recommended Vitamin D Target Range: 30.0-40.0 ng/mLOperator ID - DB Lab Interpretation (test Normal code = 75306-9) [facility], 12-Alpmfij7368-99-07 11:10:06 Test Item Value Reference Range Interpretation Comments Vitamin D 25-Hydroxy 16.7 ng/mL 6.6-49.9 (test code = 2764) BRANDI (test code = BRANDI) Effective 01/12/2017: Reference Range ChangeNew: 6.6-49.9 ng/mL Previous: 13.0-47.8 ng/mL Recommended Vitamin D Target Range: 30.0-40.0 ng/mLOperator ID - DB Lab Interpretation (test Normal code = 62272-7) [facility], 91-Mbgkjfz1459-69-07 11:10:06 Test Item Value Reference Range Interpretation Comments Vitamin D 25-Hydroxy 16.7 ng/mL 6.6-49.9 (test code = 2764) BRANDI (test code = BRANDI) Effective 01/12/2017: Reference Range ChangeNew: 6.6-49.9 ng/mL Previous: 13.0-47.8 ng/mL Recommended Vitamin D Target Range: 30.0-40.0 ng/mLOperator ID - DB Lab Interpretation (test Normal code = 85927-3) [facility], 32-Wmkodmi4153-98-07 11:10:06 Test Item Value Reference Range Interpretation Comments Vitamin D 25-Hydroxy 16.7 ng/mL 6.6-49.9 (test code = 2764) BRANDI (test code = BRANDI) Effective 01/12/2017: Reference Range ChangeNew: 6.6-49.9 ng/mL Previous: 13.0-47.8 ng/mL Recommended Vitamin D Target Range: 30.0-40.0 ng/mLOperator ID - DB Lab Interpretation (test Normal code = 25788-2) [facility], 77-Tlcwucd7062-72-07 11:10:06 Test Item Value Reference Range Interpretation Comments Vitamin D 25-Hydroxy 16.7 ng/mL 6.6-49.9 (test code = 2764) BRANDI (test code = BRANDI) Effective 01/12/2017: Reference Range ChangeNew: 6.6-49.9 ng/mL Previous: 13.0-47.8 ng/mL Recommended Vitamin D Target Range: 30.0-40.0 ng/mLOperator ID - DB Lab Interpretation (test Normal code = 13244-6) [facility], 68-Nwuywrg0652-42-07 11:10:06 Test Item Value Reference Range Interpretation Comments Vitamin D 25-Hydroxy 16.7 ng/mL 6.6-49.9 (test code = 2764) BRANDI (test code = BRANDI) Effective 01/12/2017: Reference Range ChangeNew: 6.6-49.9 ng/mL Previous: 13.0-47.8 ng/mL Recommended Vitamin D Target Range: 30.0-40.0 ng/mLOperator ID - DB Lab Interpretation (test Normal code = 60379-6) [facility], 29-JCBLBPM2072-02-07 11:10:06 Test Item Value Reference Range Interpretation Comments VITAMIN D 25-OH (BEAKER) (test 16.7 ng/mL 6.6-49.9 code = 2764) Effective 01/12/2017: Reference Range ChangeNew: 6.6-49.9 ng/mL Previous: 13.0- 47.8 ng/mLRecommendedVitamin D Target Range: 30.0-40.0 ng/mLOperator ID - DBPTH, [id number] 11:05:08 Test Item Value Reference Range Interpretation Comments PTH (test code = 2731-8) 449.7 pg/mL 8.5-72.5 H BRANDI (test code = BRANDI) Hand I Thermal Cutter ID - ADMIN Lab Interpretation (test Abnormal code = 43185-3) [facility], [id number] 11:05:08 Test Item Value Reference Range Interpretation Comments PTH (test code = 2731-8) 449.7 pg/mL 8.5-72.5 H BRANDI (test code = BRANDI) Hand I Thermal Cutter ID - ADMIN Lab Interpretation (test Abnormal code = 65733-1) [facility], [id number] 11:05:08 Test Item Value Reference Range Interpretation Comments PTH (test code = 2731-8) 449.7 pg/mL 8.5-72.5 H BRANDI (test code = BRANDI) Hand I Thermal Cutter ID - ADMIN Lab Interpretation (test Abnormal code = 90575-6) [facility], [id number] 11:05:08 Test Item Value Reference Range Interpretation Comments PTH (test code = 2731-8) 449.7 pg/mL 8.5-72.5 H BRANDI (test code = BRANDI) Hand I Thermal Cutter ID - ADMIN Lab Interpretation (test Abnormal code = 38499-0) [facility], [id number] 11:05:08 Test Item Value Reference Range Interpretation Comments PTH (test code = 2731-8) 449.7 pg/mL 8.5-72.5 H BRANDI (test code = BRANDI) Hand I Thermal Cutter ID - ADMIN Lab Interpretation (test Abnormal code = 96385-0) [facility], [id number] 11:05:08 Test Item Value Reference Range Interpretation Comments PTH (test code = 2731-8) 449.7 pg/mL 8.5-72.5 H BRANDI (test code = BRANDI) Hand I Thermal Cutter ID - ADMIN Lab Interpretation (test Abnormal code = 23765-5) [facility], [id number] 11:05:08 Test Item Value Reference Range Interpretation Comments PTH (test code = 2731-8) 449.7 pg/mL 8.5-72.5 H BRANDI (test code = BRANDI) Hand I Thermal Cutter ID - ADMIN Lab Interpretation (test Abnormal code = 07499-8) [facility], [id number] 11:05:08 Test Item Value Reference Range Interpretation Comments PTH (test code = 2731-8) 449.7 pg/mL 8.5-72.5 H BRANDI (test code = BRANDI) Hand I Thermal Cutter ID - ADMIN Lab Interpretation (test Abnormal code = 89784-6) [facility], [id number] 11:05:08 Test Item Value Reference Range Interpretation Comments PTH (test code = 2731-8) 449.7 pg/mL 8.5-72.5 H BRANDI (test code = BRANDI) Hand I Thermal Cutter ID - ADMIN Lab Interpretation (test Abnormal code = 31298-1) [facility], [id number] 11:05:08 Test Item Value Reference Range Interpretation Comments PTH (test code = 2731-8) 449.7 pg/mL 8.5-72.5 H BRANDI (test code = BRANDI) Hand I Thermal Cutter ID - ADMIN Lab Interpretation (test Abnormal code = 44616-1) [facility], [id number] 11:05:08 Test Item Value Reference Range Interpretation Comments PTH (test code = 2731-8) 449.7 pg/mL 8.5-72.5 H BRANDI (test code = BRANDI) Hand I Thermal Cutter ID - ADMIN Lab Interpretation (test Abnormal code = 53515-9) [facility], [id number] 11:05:08 Test Item Value Reference Range Interpretation Comments PTH (test code = 2731-8) 449.7 pg/mL 8.5-72.5 H BRANDI (test code = BRANDI) Hand I Thermal Cutter ID - ADMIN Lab Interpretation (test Abnormal code = 54734-5) [facility], [id number] 11:05:08 Test Item Value Reference Range Interpretation Comments PTH (test code = 2731-8) 449.7 pg/mL 8.5-72.5 H BRANDI (test code = BRANDI) Hand I Thermal Cutter ID - ADMIN Lab Interpretation (test Abnormal code = 03720-0) [facility], [id number] 11:05:08 Test Item Value Reference Range Interpretation Comments PARATHYROID HORMONE INTACT 449.7 pg/mL 8.5-72.5 H (BEAKER) (test code = 577) Hand I Thermal C[employer] ID - [id number] 09:50:35 Test Item Value Reference Range Interpretation Comments FERRITIN (BEAKER) (test code = 926.02 ng/mL 5.00-275.00 H 361) Hand I Thermal Cutter ID - ADMINIRON, TIBC, % SAT. (WITHOUT FERRITIN)2021-06-08 09:30:51 Test Item Value Reference Range Interpretation Comments IRON (BEAKER) (test code = 547) 110.0 ug/dL 40.0-160.0 TOTAL IRON BINDING CAPACITY 135 ug/dL 250-450 L (BEAKER) (test code = 769) IRON % SATURATION (2) (BEAKER) 81 % 20-55 H (test code = 2590) Hand I Thermal Cutter ID - ADMINPOCT-GLUCOSE [id number] 07:11:26 Test Item Value Reference Range Interpretation Comments POC-GLUCOSE METER 199 mg/dL 70-110 H : [facility] (BEAKER) (test code = YUDY LLOYD, 1538) [address]: Hand I Thermal Cutter/Techni kelle ID = [id number] for Tavia Bruce Vitamin [id number] 06:28:47 Test Item Value Reference Range Interpretation Comments Vitamin B12 (test code = 1626 pg/mL 213-816 H 2132-9) BRANDI (test code = BRANDI) Hand I Thermal Cutter ID - ADMIN Lab Interpretation (test Abnormal code = 19607-5) [id number] 06:28:47 Test Item Value Reference Range Interpretation Comments Vitamin B12 (test code = 1626 pg/mL 213-816 H 2132-9) BRANDI (test code = BRANDI) Hand I Thermal Cutter ID - ADMIN Lab Interpretation (test Abnormal code = 09860-7) [facility] [id number] 06:28:47 Test Item Value Reference Range Interpretation Comments Vitamin B12 (test code = 1626 pg/mL 213-816 H 2132-9) BRANDI (test code = BRANDI) Hand I Thermal Cutter ID - ADMIN Lab Interpretation (test Abnormal code = 53937-3) [facility] [id number] 06:28:47 Test Item Value Reference Range Interpretation Comments Vitamin B12 (test code = 1626 pg/mL 213-816 H 2132-9) BRANDI (test code = BRANDI) Hand I Thermal Cutter ID - ADMIN Lab Interpretation (test Abnormal code = 19020-5) [facility] [id number] 06:28:47 Test Item Value Reference Range Interpretation Comments Vitamin B12 (test code = 1626 pg/mL 213-816 H 2132-9) BRANDI (test code = BRANDI) Hand I Thermal Cutter ID - ADMIN Lab Interpretation (test Abnormal code = 22750-1) [facility] [id number] 06:28:47 Test Item Value Reference Range Interpretation Comments Vitamin B12 (test code = 1626 pg/mL 213-816 H 2132-9) BRANDI (test code = BRANDI) Hand I Thermal Cutter ID - ADMIN Lab Interpretation (test Abnormal code = 15680-3) [facility] [id number] 06:28:47 Test Item Value Reference Range Interpretation Comments Vitamin B12 (test code = 1626 pg/mL 213-816 H 2132-9) BRANDI (test code = BRANDI) Hand I Thermal Cutter ID - ADMIN Lab Interpretation (test Abnormal code = 08196-4) [facility] [id number] 06:28:47 Test Item Value Reference Range Interpretation Comments Vitamin B12 (test code = 1626 pg/mL 213-816 H 2132-9) BRANDI (test code = BRANDI) Hand I Thermal Cutter ID - ADMIN Lab Interpretation (test Abnormal code = 55815-3) [facility] [id number] 06:28:47 Test Item Value Reference Range Interpretation Comments Vitamin B12 (test code = 1626 pg/mL 213-816 H 2132-9) BRANDI (test code = BRANDI) Hand I Thermal Cutter ID - ADMIN Lab Interpretation (test Abnormal code = 99273-2) [facility] [id number] 06:28:47 Test Item Value Reference Range Interpretation Comments Vitamin B12 (test code = 1626 pg/mL 213-816 H 2132-9) BRANDI (test code = BRANDI) Hand I Thermal Cutter ID - ADMIN Lab Interpretation (test Abnormal code = 92801-9) [facility] [id number] 06:28:47 Test Item Value Reference Range Interpretation Comments Vitamin B12 (test code = 1626 pg/mL 213-816 H 2132-9) BRANDI (test code = BRANDI) Hand I Thermal Cutter ID - ADMIN Lab Interpretation (test Abnormal code = 40253-9) [facility] [id number] 06:28:47 Test Item Value Reference Range Interpretation Comments Vitamin B12 (test code = 1626 pg/mL 213-816 H 2132-9) BRANDI (test code = BRANDI) Hand I Thermal Cutter ID - ADMIN Lab Interpretation (test Abnormal code = 00718-8) [facility] [id number] 06:28:47 Test Item Value Reference Range Interpretation Comments Vitamin B12 (test code = 1626 pg/mL 213-816 H 2132-9) BRANDI (test code = BRANDI) Hand I Thermal Cutter ID - ADMIN Lab Interpretation (test Abnormal code = 91499-5) [facility] [id number] 06:28:47 Test Item Value Reference Range Interpretation Comments VITAMIN B12 (BEAKER) (test code = 1626 pg/mL 213-816 H 774) Hand I Thermal Cutter ID - ADMINBASIC METABOLIC [id number] 06:22:27 Test Item Value Reference Range Interpretation [...] S NOT APPLICABLE FOR DIALYSIS PATIEN TS. Hand I Thermal Cutter ID - [id number] 06:08:16 Test Item Value Reference Range Interpretation Comments MAGNESIUM (BEAKER) (test code = 2.3 mg/dL 1.6-2.6 627) Hand I Thermal Cutter ID - [id number] 06:08:16 Test Item Value Reference Range Interpretation Comments PHOSPHORUS (BEAKER) (test code = 5.6 mg/dL 2.3-4.7 H 604) Hand I Thermal Cutter ID - DBPROTHROMBIN TIME/[id number] 05:55:08 Test Item Value Reference Range Interpretation Comments PROTIME (BEAKER) 14.2 seconds 11.9-14.2 (test code = 759) INR (BEAKER) (test 1.12 See_Comment [Automat ed message] code = 370) The system [employer] generated this result transmitted ref erence range: <=5.90. The reference range was not used to int erpret this result as normal/abnormal . RECOMMENDED COUMADIN/WARFARIN INR THERAPY RANGESSTANDARD DOSE: 2.0 - 3.0 Includes: PROPHYLAXIS for venous thrombosis, systemic embolization; TREATMENT for venous thrombosis and/or pulmonary embolus.HIGH RISK: Target INR is 2.5-3.5 for patients with mechanical heart valves.CBC W/PLT COUNT & AUTO [id number] 05:42:08 Test Item Value Reference Range Interpretation [...] = 2801) RAD, CHEST, 1 VIEW, NON [id number] 02:35:00Reason for exam:->shortness of breathShould this be performed at the bedside?->Yes [facility] : 1955 Sex: FFINAL REPORT RAD, CHEST, 1 VIEW, NON DEPT INDICATION: shortness of breath COMPARISON: None FINDINGS: Portable frontal view of the chest. 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 Lungs and pleura: No airspace consolidation or effusion. No pneumothorax. Heart and mediastinum: Unremarkable cardiomediastinal contours. Additional findings: Status post median sternotomy. Signed: Andrew Carywade Verified Date/Time: 06/08/2021 02:35:39 POCT-GLUCOSE [id number] 23:26:33 Test Item Value Reference Range Interpretation Comments POC-GLUCOSE METER 279 mg/dL 70-110 H : TESTED A T [facility] 6720 (BEAKER) (test code = [facility], 1538) [address]: Hand I Thermal Cutter/Techni kelle ID = [id number] for Tavia Bruce COMPREHENSIVE METABOLIC [id number] 22:28:11 Test Item Value Reference Range Interpretation [...] S NOT APPLICABLE FOR DIALYSIS PATIEN TS. Hand I Thermal Cutter ID - DBVancomycin level, [id number] 22:19:31 Test Item Value Reference Range Interpretation Comments Vancomycin Rm (test 16.1 ug/mL code = 28151-6) BRANDI (test code = Reference Range: No BRANDI) NormalsOperator ID - DB [facility], [id number] 22:19:31 Test Item Value Reference Range Interpretation Comments Vancomycin Rm (test 16.1 ug/mL code = 12961-1) BRANDI (test code = Reference Range: No BRANDI) NormalsOperator ID - DB [facility] [id number] 22:19:31 Test Item Value Reference Range Interpretation Comments Vancomycin Rm (test 16.1 ug/mL code = 22869-4) BRANDI (test code = Reference Range: No BRANDI) NormalsOperator ID - DB [facility], [id number] 22:19:31 Test Item Value Reference Range Interpretation Comments Vancomycin Rm (test 16.1 ug/mL code = 51471-4) BRANDI (test code = Reference Range: No BRANDI) NormalsOperator ID - DB [facility], [id number] 22:19:31 Test Item Value Reference Range Interpretation Comments Vancomycin Rm (test 16.1 ug/mL code = 90380-8) BRANDI (test code = Reference Range: No BRANDI) NormalsOperator ID - DB [facility], [id number] 22:19:31 Test Item Value Reference Range Interpretation Comments Vancomycin Rm (test 16.1 ug/mL code = 43674-8) BRANDI (test code = Reference Range: No BRANDI) NormalsOperator ID - DB [facility], [id number] 22:19:31 Test Item Value Reference Range Interpretation Comments Vancomycin Rm (test 16.1 ug/mL code = 95427-9) BRANDI (test code = Reference Range: No BRANDI) NormalsOperator ID - DB [facility], [id number] 22:19:31 Test Item Value Reference Range Interpretation Comments Vancomycin Rm (test 16.1 ug/mL code = 87903-4) BRANDI (test code = Reference Range: No BRANDI) NormalsOperator ID - DB [facility], [id number] 22:19:31 Test Item Value Reference Range Interpretation Comments Vancomycin Rm (test 16.1 ug/mL code = 68133-4) BRANDI (test code = Reference Range: No BRANDI) NormalsOperator ID - DB [facility], [id number] 22:19:31 Test Item Value Reference Range Interpretation Comments Vancomycin Rm (test 16.1 ug/mL code = 45270-9) BRANDI (test code = Reference Range: No BRANDI) NormalsOperator ID - DB [facility], [id number] 22:19:31 Test Item Value Reference Range Interpretation Comments Vancomycin Rm (test 16.1 ug/mL code = 88809-8) BRANDI (test code = Reference Range: No BRANDI) NormalsOperator ID - DB [facility], [id number] 22:19:31 Test Item Value Reference Range Interpretation Comments Vancomycin Rm (test 16.1 ug/mL code = 52603-6) BRANDI (test code = Reference Range: No BRANDI) NormalsOperator ID - DB [facility], [id number] 22:19:31 Test Item Value Reference Range Interpretation Comments Vancomycin Rm (test 16.1 ug/mL code = 70905-8) BRANDI (test code = Reference Range: No BRANDI) NormalsOperator ID - DB [facility] CenterVANCOMYCIN LEVEL, [id number] 22:19:31 Test Item Value Reference Range Interpretation Comments VANCOMYCIN RANDOM (BEAKER) (test 16.1 ug/mL code = 523) Reference Range: No NormalsOperator ID - DBCBC W/PLT COUNT & AUTO [id number] 22:05:27 Test Item Value Reference Range Interpretation [...] Interpretation Comments POCT GLU (test code = 5871672465) 129 mg/dL 70-110 H Lab Interpretation (test code = Abnormal 61525-7) [facility] GLUCOSE (AUTOMATED)2021-05-22 17:41:02 Test Item Value Reference Range Interpretation Comments POCT GLU (test code = 8345729541) 120 mg/dL 70-110 H Lab Interpretation (test code = Abnormal 54110-4) [facility] GLUCOSE (AUTOMATED)2021-05-22 13:46:20 Test Item Value Reference Range Interpretation Comments POCT GLU (test code = 2590073156) 174 mg/dL 70-110 H Lab Interpretation (test code = Abnormal 59938-8) [facility] (NA, K, CL, CO2, GLUCOSE, BUN, CREATININE, CA)2021-05-22 10:34:14 Test Item Value Reference Range Interpretation Comments NA (test code = 128 mmol/L 135-145 L 3189438716) K (test code = 5.2 mmol/L 3.5-5.0 H 2317002336) CL (test code = 95 mmol/L 98-108 L 6318430294) CO2 TOTAL (test code = 24 mmol/L 23-31 2286978170) AGAP (test code = 2-16 5602185340) BUN (test code = 43 mg/dL 7-23 H 3035580167) GLUCOSE (test code = 182 mg/dL 70-110 H 4712756689) CREATININE (test code = 5.93 mg/dL 0.50-1.04 H 1699584576) CALCIUM (test code = 8.0 mg/dL 8.6-10.6 L 6426508032) eGFR (test code = mL/min/1.73m2 8067661915) BRANDI (test code = BRANDI) Association of [...] tests). Lab Interpretation Abnormal (test code = 13246-4) [facility] WITH [id number] 10:25:51 Test Item Value Reference Range Interpretation [...] (test code = 50.7 fL 39.0-49.9 H 77422-8) RDW-CV (test code = 14.6 % 12.0-15.5 788-0) PLT (test code = See_Comment L [Automated 777-3) message] The sy stem which generated this result transmitted reference range : 166 - 358 10*3/ ?L. The reference r alba was not used to interpret this result as normal/abnormal . MPV (test code = 11.2 fL 9.5-12.9 35432-6) NRBC/100 WBC (test See_Comment [Automat ed code = 9141377388) message] The system which generated this result transmitted reference range : 0.0 - 10.0 /100 WBCs. The refer ence range was not u sed to interpret th is result as normal/abnormal . NRBC x10^3 (test code <0.01 See_Comment [Auto mated = 5511482359) message] The s ystem which generated this result transmitted reference range : 10*3/?L. The reference range was not used to interpret this result as normal/abnormal . GRAN MAT (NEUT) % 75.4 % (test code = 770-8) IMM GRAN % (test code 0.70 % = 1485399129) LYMPH % (test code = 12.5 % 736-9) MONO % (test code = 10.3 % 5905-5) EOS % (test code = 0.8 % 713-8) BASO % (test code = 0.3 % 706-2) GRAN MAT x10^3(ANC) 4.54 10*3/uL 1.88-7.09 (test code = 9109964144) IMM GRAN x10^3 (test 0.04 10*3/uL 0.00-0.06 code = 0521012151) LYMPH x10^3 (test code 0.75 10*3/uL 1.32-3.29 L = 731-0) MONO x10^3 (test code 0.62 10*3/uL 0.33-0.92 = 742-7) EOS x10^3 (test code = 0.05 10*3/uL 0.03-0.39 711-2) BASO x10^3 (test code <0.03 0.01-0.07 = 704-7) Lab Interpretation Abnormal (test code = 42449-4) [facility] [id number] 05:24:06 Test Item Value Reference Range Interpretation Comments NT-proBNP (test code 945279 pg/mL See_Comment H [Autom ated = 7921194647) message] The system which generated this result transmitted reference range : <=125. The reference range was not used to interpret this result as normal/abnormal . BRANDI (test code = BRANDI) Biotin has been reported to cause a negative bias, interpret results relative to patient's use of biotin. Lab Interpretation Abnormal (test code = 51394-5) [facility] [id number] 04:46:54 Test Item Value Reference Range Interpretation Comments GLUCOSE (test code = 5738447833) 107 mg/dL 70-110 Lab Interpretation (test code = Normal 06137-3) [facility] CenterProtein Total [id number] 04:46:34 Test Item Value Reference Range Interpretation Comments T PROTEIN (test code = 6696291189) 6.1 g/dL 6.3-8.2 L Lab Interpretation (test code = Abnormal 64763-7) [facility] CenterLACTATE [id number] 04:46:18 Test Item Value Reference Range Interpretation Comments LDH (test code = 2967804068) 311 U/L 300-600 Lab Interpretation (test code = Normal 12851-2) [facility] CenterTROPONIN [id number] 00:24:29 Test Item Value Reference Interpretation Comments Range TROPONIN I (test 0.084 ng/mL See_Comment H [Automated code = 4670388639) message] The system which generated this result [...] biotin. Lab Interpretation Abnormal (test code = 20780-3) [facility] CenterCyto Pleural [id number] 23:21:29 Test Item Value Reference Range Interpretation Comments Case Report (test code = Non-Gynecologic [id number]) Cytology ?Case: [id number] ?Authorizing Provider: ?Candido Robison DO ?Collected: ? 05/20/2021 1604 ?Ordering Location: ? ? [facility] ?Received: ?05/20/2021 1631 ?Pathologist: ? Mariana, ? [place], MD ?Specimen: ? ?PLEURAL, RIGHT ? Final Diagnosis (test x8aeuBAcZKJle9ryZXDcz code = 9335943752) GFuZzEwMzNcZnRuYmpcdW MxIHtccnRmMVxlcGljOTY hQVawkdQrCAAwoVPuM5Tk ommdAIgrOM4pAO9hvSsjx WPvpLFcZGBxVfRus4bpj0 53rJUtq3ppENDNherteWa 9aJwsO97gi7N0DgqfX29k yTRdMQX4HWGuNDKpdWFsF BCsBCZ0JKWflXLwG5srWD ViBS7lqgjwMBuoBQwePKB iwMJ9XAErnKQyB5ZhZZLy VVqxVIKmdsn2OtZaUp0fv GVyeTcyMFxwYXJkXHBsYW luXGJcZnMyMFxwYXIgQS4 gIFBMRVVSQSwgUklHSFQ7 JDEOV4NJV9FWIQZSPOOwG wzHXPD1FGVqfhPeMRZbBQ 1uKhKFZZWMOxLkMk7HYE6 BTElHTkFOVCBDRUxMUyBc MfDnKHTWNRYXG07KUW5US VxwYXJccGFyIFBhdWwgWW 44heztVF1PPVFbhBCyaFJ oiFcvln43VJC6TDStInM8 LzIwMjJccHJvdGVjdDAgX HBsYWluXGZzMjAgICAyOj J9YWWCEKSicqroXBM8s3q ydGYxXHNzdGVjZjIyMDAw TPJwm9unGEYfqPDcXhCtA zNcZnRuYmpcdWMxXGRlZm Yof7syb761xQTvb6kuZPK iMbW5uNCnHCEbkMntsww1 aShaBiDwXORdn1sqgiJaP mNoYXJzZXQwIEFyaWFsO3 56RBWoUSdls8vjg9SeHVP brUVgx7U5NQLQJBybYlUw A086t0dof5iqttOpeTX6C DLqCSW8MQlkwiHnkaR3FK fsuJJsXnK2VEjrnfMnGWw ryjIoxrIzGch7NQKgB144 ZUA9cWlbh6trABG3QAJgW ORhSkiuOj9uwQGfQ293UO QzVBEPLLWahOi9BTVtpbM gemJeyCRSa714R234y3ux ERIqavWnnMmTwkbzo0ojF 319XHBhcGVydzEyMjQwXH DqtZWccMN1CBKzKS7neay vCSsuSQluKMGtdfG3OVJy qGPmQ7PiKMQaVN2hrigaN NC0NNnnADJhBTG3NzCvPO Lrm9Kofzg8EcZzmu1nop7 7OPX9w0YryOqgDLZ8WXU2 SyEeEr8vpCBhCNSrDJ7vO gKuyTSpMVVmtv82lBpqJH zctzQknO4yNiZzBQUtwDL zMRQtQM2saUClZOPehC8w cmxjXHBnYnJkcmhlYWRcc JuzxsKrVs4tgBvrHOG2ZJ trU3gdgQ2vMjN9OVdnZ0o viR8wEYg8NQpzuPT7GIWm dG3eMI3lwxrbg5neYLasQ BevRDFfdlE7gfZ6QSKitK NsU7NtsV9kLSVaDZ0eegn fk9uhPGO8EGemGWLyYSV8 QmKoMRJpy1Rrkdw1AbWft 7XzdBAmDWvzT70is393KE KbanHtG5dmyIAplghjoCU ufctjCBfrmrJ0OJVrERKo YWluXGYxXGZzMjBcbGFuZ zEwMzNcaGljaFxmMVxkYm XnYYKwUOanW3kqJnTlQ0X yXGZzMjBccGFyIEkgaGF2 UEAyWAMlr24jjEj9SIOrp yfpt6NtLQEmwOLasYTgfV 9kdsQlx1qoSYYdTEIaBBP jG1HdQYQ0jIDrRERefRYn kML6EC4hqnLxOJ4fSMMrU nkgcmVzaWRlbnRzLCBmZW thw3yjWT4sCYLdvDclmQ2 qqYT3EMUdb9mxbBHlkXCp l6fps8XiycXaSXymSXVpR JzeEPGjCSWvUS2pFSJceO VddlEvl3V7FliznWObljx vYzytnkX0VZnalicuQTIk XXykA0trUwMsBJOnuHugN mdpk7HlJBEnZGDtOfhhdD FyfX0= Final Diagnosis Comment c8wewWHpMLEvxXV3RmLvG (test code = 5594704299) YHrn2bzv3AazWQmbLBcQZ jgjRAgeyZfyx04vMR8qB0 9LB8yOBDeHoK2SDNgkrY8 Vjg3GOGyPGTtgQDpX443g 8gbz1zvmrFyoHI4hPwnNB UwmxkgRcD4HHpiXASdqyj kHVa7RLvdDJPurGY0SWPd oVNfO4GlZIHrRG4jmpt3R UY3IBuqTJVuGjB8KTMxsM KvOOTudWbfYUjho658SUP 7ZvKaIYUrimAafArmrV1j ZnMyMCBTbWVhcnMgYXJlI NEkwMWrN4JuzMWmWFBvVG 3cGPUlq1nkqsOjHWIbIG2 cT85fpZKpj4TaBNvaEYwz F8SbnUWjMY9jHADib64dR LHjRR3zjvTrEmROigWsWW baY13epiUxW5GjmJCajNV qxtQwMrhgCY0vIKIlzw8= Clinical Information Clinical Hx: ESRD (test code = 4768946256) Gross Description (test r2yxnQXwJHEqyPT9UiBfI code = 4802898478) BXfh0ezq9RbcOWzkECyVB rgsBXyjjVxcd85pBT6fJ5 0LC8rVZDyAxT0WSWmzbS3 Ktf3GKCgNNLqrKNxL138u 8yhr5wlpkYjrYW1wLwnQB HyuoznVeX0TDdzBHOeaub iOFk3JUmfCBZmjQN9YEBs qEJxZ7PtKTKxPS0lhkc2M KU9JTecUZHtRsA8UCXeqT RsJNSihMlkDTmpd834TKY 3ZpDfUIXwzlY2DQooRZLf U6ZdU1JuPTgrOKO4EOSuR CBcXHQgMSBcXGZsIFxcbm O5i4smQZIyxYUxAPE5EDg caWQgNTEwMDIgXFxkYiBP EoUzEiNoVDA4DAK9UEXhB Ft8PKwyH0QPHPYzOGH2PT CeRKn6HbC3HFo7DOTDUh5 mUSZ0MKLxOUn7PLW5YOJ5 NCBcXHQgMiBcXGZsIFxcZ iBBcmlhbCBcXGZzIDEwIF angwQ2KYWaBJelNPLdDxW ccGFyXGZzMjJccGFyIEEx LiAgUExFVVJBLCBSSUdIV CxyMBnIVsLDDD6KFAAMJt BGTFVJRFxwYXIgUmVjZWl 0OLXqNfXrp2uojLKdGICm SlsiFS1tXCiloLgdsgKqe HVpZCBccGFyIFByZXBhcm YaYXPdg8wjXHLtNHorHYU hcGFuaWNvbGFvdSBjeXRv c5WmtewfYD9zJMKjYo4hE Z0oy0HpfZWejYGel4Fhrn WvwxTnIEDvqUqdzkjdm2f peCygg7OhkNHlBC55NSPw lOCgNVG6WK8jrEbsEWJ1 Disclaimer (test code = y8jzjPOyVVSdl1ldSVGwl 0287476190) GFuZzEwMzNcZnRuYmpcdW GvZIugyzByPAadr2AzA5M yMjAwMFxhbnNpXGRlZmxh zravHVLjVCL5oiNiKIQbE IzwKCStSHgqWr5olAPkjH thSfUtYKYbv7ontuFRZUb xAhIuC369ZNCeKEqso3di v0YdZEPylROgu4W8FFCSj reeuKv3mNxmZ02fd7X2Dw raI3ceXOFmHPRfR2LaGX0 rYPMkVfm1CLW2QXP8XPVf AZRdW5SwDI5nQDVkoEXjW My3c9aaiRjmIHPrWXE8t5 crPHjnoaAjNE0lpe5vnPd 8y5cwzwUcTOPkTEAerLVE MCKfJ2PgtHhhTm1lcHc5s MkbWfdeNED8Uxx7IC4wvd 44oow5bGyjIATidkeuLzN 0VZstJMCeijguOXg0TUzq REFskIN9XJNelCZxE1MuS WVuUQ8kkki2XXE3IRuvNS MoHxT5RRIamQYfPBYnkIm oFKesk706STQ4WyAlMY1e U3Ddn1J6vC6dhCObBPFhk ALoQsQqSFXfwy8vtBRePH lri7XyBJU7fiU5yPSpnEB kHEGxOQ06Bklfm2TaYwnw n6AzI79pgFI4JRrnc0emK Y9dZiP6nhTtRJeii9scgV 0yVdR0EDmeUN4hYL2aTRW ltT5ckgenPTGtBhZmtmzh BFJquNzrajUnAp0qlJlcE FS9NUwoK1zctH0gRlX3GX wpJ5jwvT1xEPj4ALgreUV 1IEHtaN5bSU9wjycbe4om QTqcIQcoQUUxqsT0erO9C OMvcSKtN0CqeJ9cGZPiYU 3szpdaq1byQZU8NGphXOH fKYZ8RiRfWOYab2Txjtm1 CwWtv2KypTCfCSphB49xx 081ZDLwlhTpT3rmcDBfkp kulOEyfoekPHbtfnX9VUH jejWaj7OsMFApKTV5NOoo NFpovDDfARKcoGkmh0duW 3RscGFyXHBsYWluXGYxXG ZzMjBcbGFuZzEwMzNcaGl jaFxmMVxkYmNoXGYxXGxv Y1xbTnDbA0UlHXJtUoMvg COvM2gpIBqxioBwGVJzjo XckYB4LYktS7b1QWRlrtS hwLr3giRrLmWzEQWvWOY8 JHzjcVWrOYWbb4Revltra MEaGa3krQLwUDUcoV8jJE CyIFQuTKqcYD7eyAi6ZTC SfUWfrJWrNzYUUVMzUN81 nkBxAIGXtloqs6X2GYakC NYxq2ZklMEzL2gah3YuGZ Ofz45gNB6rn5L6g3oaOHT 5BX5ax5UvWQCmvSFrfYYi POCvj3Oddzyhp6EnJQPpm wUvc5LbIPSoygIuoYPeHB TjopNvmo4ognIzWIDtZBO qN2PfiyruvCkyhqPnDHLu cu6zmnFnHHK2SLCIXCGuW EPhq8DlsE0zhICSQRB3tB Nxoo4goiALdFHoAVBwwt2 9AWPeCP5mU3deWNQeSWFb kmGshTTff5HlMIIedQY1a FWdBE2PGlNKr37eVJJoWR ORwrRkLCPziBynhEH2yzS 0dO5mNAnYETShOwh+IFRo PCSARFCkYV6abaLbk9Dmi eIuoAmdJSZobRUtl4NqaC Cbd3PldYphy3QwfQSqiUZ wJL1aGWEwnwewQEOnPWZI GbFHKFZcqaO5s8FpZQQjZ LXoLJC1uVggbya1MAYalY 3gNLYhM0ywtmlpGQpgYZJ cg8AexR2mhNUGeZBpc4Hb uZVikUNEqVWuKQ5ojrScI RxPNOzHFHX0jhPvNVJwo4 XaPKdqL9fzS03jfAdrpOh 2fXK5QSM0nW7xBlu+IFxw YXJccGFyIEFwcHJvcHJpY RXmjHkjkdVuB8JcshNnoJ 7qdKUoudPhUR2qRC8gY7M 7zWQcTDWxjyCcl1zfVByx dmUgYmVlbiByZXZpZXdlZ QIoy9DjZRpaGMA7LJmsjh BpbmNsdWRpbmcgSCZFLCB RdFEtsKBaOEZ5LQnszoJv bnYcSY8jrQ2rxVqxcA3mn JNkhDP3gimjJTWcONEceK zpJBBjRS8utIJqTOUoaqK YjEtnoFGwiS8xT8OuAJOx BCHusm8jNXCrbW0cBJvcn 2VydmljZXMgYXJlIHBlcm Ugke3aHMIzoBLKXP7WQFm veYCgw0OfmmRzE5mOTBM6 NUQwNjYwMjgxKSBleGNlc PMkOTEbqk13NMZlkJ9cpK clJXRrrF0dmJ1dmPfrqN5 hUqAmTbNjFZirAL0dDNFq J7idpHCbDLQjVGBsM9oxJ gFklY5ciYuqMQqgOcWrHy AyBExdDNR3wP== Embedded Images (test code = 1550779814) [facility] GLUCOSE (AUTOMATED)2021-05-21 23:17:01 Test Item Value Reference Range Interpretation Comments POCT GLU (test code = 4984933411) 109 mg/dL 70-110 Lab Interpretation (test code = Normal 43150-9) [facility] CenterDIFF [facility]ULT [id number] 21:50:44 UNREMARKABLE LEUKOCYTES WITH ABSOLUTE LYMPHOPENIA. MODERATE NORMOCYTIC NORMOCHROMIC ANEMIA. MILD THROMBOCYTOPENIA.[facility] VITAMIN B12, [id number] 18:38:08 Test Item Value Reference Range Interpretation Comments VIT B12 (test code = >1000 240-930 H 2432085634) BRANDI (test code = BRANDI) Biotin has been reported to cause a positive bias, interpret results relative to patient's use of biotin. Lab Interpretation (test Abnormal code = 31062-3) [facility] CenterVIT[facility]IN D, [id number] 17:51:01 Test Item Value Reference Range Interpretation Comments VIT D 25OH (test code = 24 ng/mL 25-80 L 32438-9) BRANDI (test code = BRANDI) Deficiency: <20 ng/mLInsufficiency: 20-24 ng/mLOptimal: 25-80 ng/mL Lab Interpretation (test Abnormal code = 88310-7) [facility] CenterFOLATE2022-02-17 17:42:20 Test Item Value Reference Range Interpretation Comments FOLATE SER (test code = 6.1 ng/mL 3.0-20.0 Biot in has been 2952736309) reported to cau se a positive bias, interpret resul ts relative to patient's use o f biotin. Lab Interpretation (test Normal code = 33926-3) [facility] GLUCOSE (AUTOMATED)2021-05-21 17:17:00 Test Item Value Reference Range Interpretation Comments POCT GLU (test code = 2744219033) 175 mg/dL 70-110 H Lab Interpretation (test code = Abnormal 27838-3) [facility] CenterTROP[facility]IN [id number] 14:52:32 Test Item Value Reference Interpretation Comments Range TROPONIN I (test 0.109 ng/mL See_Comment H [Automated code = 1128388686) message] The system which generated this result [...] biotin. Lab Interpretation Abnormal (test code = 31582-6) [facility] CenterIRON [id number] 14:49:31 Test Item Value Reference Range Interpretation Comments IRON (test code = 9470376639) 30 ug/dL 50-160 L TIBC (test code = 4697663595) 185 ug/dL 250-410 L % FE SAT (test code = 8702129125) 16 % 20-50 L Lab Interpretation (test code = Abnormal 75918-8) [facility])2021-05-21 14:06:00 Test Item Value Reference Range Interpretation Comments POCT GLU (test code = 8358677778) 191 mg/dL 70-110 H Lab Interpretation (test code = Abnormal 90199-4) [facility] CenterFERRITIN [id number] 14:05:25 Test Item Value Reference Range Interpretation Comments FERRITIN (test code = 715.0 ng/mL 11.0-264.0 H 8157549653) BRANDI (test code = BRANDI) Biotin has been reported to cause a negative bias, interpret results relative to patient's use of biotin. Lab Interpretation (test Abnormal code = 16601-6) [facility] CenterN-TERMINAL [id number] 13:56:37 Test Item Value Reference Range Interpretation Comments NT-proBNP (test code 947149 pg/mL See_Comment H [Autom ated = 5474706769) message] The system which generated this result transmitted reference range : <=125. The reference range was not used to interpret this result as normal/abnormal . BRANDI (test code = BRANDI) Biotin has been reported to cause a negative bias, interpret results relative to patient's use of biotin. Lab Interpretation Abnormal (test code = 28620-0) [facility] CenterTROPONIN [id number] 13:43:04 Test Item Value Reference Interpretation Comments Range TROPONIN I (test 0.100 ng/mL See_Comment H [Automated code = 8279288000) message] The system which generated this result [...] biotin. Lab Interpretation Abnormal (test code = 71884-2) [facility] CenterHEPATIC FUNCTION PANEL (59267) (ALB,T.PRO,BILI T,BU/BC,ALT,AST,ALK PHOS)2021-05-21 13:30:03 Test Item Value Reference Range Interpretation Comments TOTAL BILI (test code = 8296507149) 0.7 mg/dL 0.1-1.1 BILI UNCON (test code = 0142546494) 0.0 mg/dL 0.1-1.1 L BILI CONJ (test code = 0883512238) 0.0 mg/dL 0.0-0.3 T PROTEIN (test code = 4537989200) 7.2 g/dL 6.3-8.2 ALBUMIN (test code = 3751425181) 3.5 g/dL 3.5-5.0 ALK PHOS (test code = 0989685740) 156 U/L 34-122 H ALTv (test code = 1742-6) 12 U/L 5-35 AST(SGOT) (test code = 5341132820) 28 U/L 13-40 Lab Interpretation (test code = Abnormal 44060-5) [facility] WITH [id number] 10:18:09 Test Item Value Reference Range Interpretation [...] (test code = 52.3 fL 39.0-49.9 H 96719-8) RDW-CV (test code = 14.9 % 12.0-15.5 788-0) PLT (test code = See_Comment L [Automated 777-3) message] The sy stem which generated this result transmitted reference range : 166 - 358 10*3/ ?L. The reference r alba was not used to interpret this result as normal/abnormal . MPV (test code = 11.0 fL 9.5-12.9 15975-8) NRBC/100 WBC (test See_Comment [Automat ed code = 8263410635) message] The system which generated this result transmitted reference range : 0.0 - 10.0 /100 WBCs. The refer ence range was not u sed to interpret th is result as normal/abnormal . NRBC x10^3 (test code <0.01 See_Comment [Auto mated = 0417820930) message] The s ystem which generated this result transmitted reference range : 10*3/?L. The reference range was not used to interpret this result as normal/abnormal . GRAN MAT (NEUT) % 74.4 % (test code = 770-8) IMM GRAN % (test code 0.30 % = 1669217767) LYMPH % (test code = 12.9 % 736-9) MONO % (test code = 11.2 % 5905-5) EOS % (test code = 0.7 % 713-8) BASO % (test code = 0.5 % 706-2) GRAN MAT x10^3(ANC) 4.40 10*3/uL 1.88-7.09 (test code = 4090937983) IMM GRAN x10^3 (test <0.03 0.00-0.06 code = 9637605901) LYMPH x10^3 (test code 0.76 10*3/uL 1.32-3.29 L = 731-0) MONO x10^3 (test code 0.66 10*3/uL 0.33-0.92 = 742-7) EOS x10^3 (test code = 0.04 10*3/uL 0.03-0.39 711-2) BASO x10^3 (test code 0.03 10*3/uL 0.01-0.07 = 704-7) Lab Interpretation Abnormal (test code = 18112-1) [facility] METABOLIC PANEL (NA, K, CL, CO2, GLUCOSE, BUN, CREATININE, CA)2021-05-21 10:17:29 Test Item Value Reference Range Interpretation Comments NA (test code = 132 mmol/L 135-145 L 3647190302) K (test code = 4.6 mmol/L 3.5-5.0 7563575478) CL (test code = 99 mmol/L 98-108 8871355618) CO2 TOTAL (test code = 27 mmol/L 23-31 2996747543) AGAP (test code = 2-16 3365712116) BUN (test code = 30 mg/dL 7-23 H 0659112223) GLUCOSE (test code = 129 mg/dL 70-110 H 0639438110) CREATININE (test code = 4.51 mg/dL 0.50-1.04 H 4964467620) CALCIUM (test code = 8.1 mg/dL 8.6-10.6 L 6512243645) eGFR (test code = mL/min/1.73m2 0622458750) BRANDI (test code = BRANDI) Association of [...] tests). Lab Interpretation Abnormal (test code = 26750-3) [facility] GLUCOSE (AUTOMATED)2021-05-21 02:24:31 Test Item Value Reference Range Interpretation Comments POCT GLU (test code = 8079592759) 123 mg/dL 70-110 H Lab Interpretation (test code = Abnormal 27107-3) [facility] GLUCOSE (AUTOMATED)2021-05-20 22:40:15 Test Item Value Reference Range Interpretation Comments POCT GLU (test code = 6277633615) 193 mg/dL 70-110 H Lab Interpretation (test code = Abnormal 94056-6) [facility] GLUCOSE (AUTOMATED)2021-05-20 17:24:39 Test Item Value Reference Range Interpretation Comments POCT GLU (test code = 2306103469) 129 mg/dL 70-110 H Lab Interpretation (test code = Abnormal 16874-2) [facility] CenterN-[facility]MINAL [id number] 16:20:09 Test Item Value Reference Range Interpretation Comments NT-proBNP (test code 161956 pg/mL See_Comment H [Autom ated = 1319796256) message] The system which generated this result transmitted reference range : <=125. The reference range was not used to interpret this result as normal/abnormal . BRANDI (test code = BRANDI) Biotin has been reported to cause a negative bias, interpret results relative to patient's use of biotin. Lab Interpretation Abnormal (test code = 33142-3) [facility] GLUCOSE (AUTOMATED)2021-05-20 13:50:50 Test Item Value Reference Range Interpretation Comments POCT GLU (test code = 9881070802) 142 mg/dL 70-110 H Lab Interpretation (test code = Abnormal 57871-2) [facility] CenterLAMNATE [id number] 11:29:26 Test Item Value Reference Range Interpretation Comments LDH (test code = 9441550560) 424 U/L 300-600 Slight hemolysis Lab Interpretation (test code Normal = 81772-5) [facility] (NA, K, CL, CO2, GLUCOSE, BUN, CREATININE, CA)2021-05-20 11:28:05 Test Item Value Reference Range Interpretation Comments NA (test code = 132 mmol/L 135-145 L 8422288568) K (test code = 4.6 mmol/L 3.5-5.0 5537830296) CL (test code = 97 mmol/L 98-108 L 4746679136) CO2 TOTAL (test code = 26 mmol/L 23-31 9758222144) AGAP (test code = 2-16 6498511491) BUN (test code = 44 mg/dL 7-23 H 3469666324) GLUCOSE (test code = 161 mg/dL 70-110 H 3567544393) CREATININE (test code = 6.29 mg/dL 0.50-1.04 H 6804618509) CALCIUM (test code = 8.0 mg/dL 8.6-10.6 L 9380546272) eGFR (test code = mL/min/1.73m2 5524402547) BRANDI (test code = BRANDI) Association of [...] tests). Lab Interpretation Abnormal (test code = 91332-2) [facility] CenterPROTHROMBIN TIME / [id number] 11:17:25 Test Item Value Reference Range Interpretation Comments PROTIME PATIENT (test See_Comment [Auto mated message] code = 5964-2) The system [employer] generated this result transmitted ref erence range: 12.0 - 1 4.7 Seconds. The re ference range was not u sed to interpret this result as normal/abnor mal. INR (test code = 6301-6) Nor mal INR <1.1; Warfarin Therap eutic range 2.0 to 3. 0 or 2.5 to 3.5, dep ending upon the indica tions. Lab Interpretation (test Normal code = 90963-1) [facility] GLUCOSE (AUTOMATED)2021-05-20 01:38:05 Test Item Value Reference Range Interpretation Comments POCT GLU (test code = 8607878385) 181 mg/dL 70-110 H Lab Interpretation (test code = Abnormal 77195-1) [facility] GLUCOSE (AUTOMATED)2021-05-19 23:12:33 Test Item Value Reference Range Interpretation Comments POCT GLU (test code = 0878324682) 129 mg/dL 70-110 H Lab Interpretation (test code = Abnormal 70903-7) [facility] GLUCOSE (AUTOMATED)2021-05-19 17:43:05 Test Item Value Reference Range Interpretation Comments POCT GLU (test code = 5627156915) 195 mg/dL 70-110 H Lab Interpretation (test code = Abnormal 94539-7) [facility] CenterN-[facility]AL [id number] 16:56:37 Test Item Value Reference Range Interpretation Comments NT-proBNP (test code 062957 pg/mL See_Comment H [Autom ated = 1257905111) message] The system which generated this result transmitted reference range : <=125. The reference range was not used to interpret this result as normal/abnormal . BRANDI (test code = BRANDI) Biotin has been reported to cause a negative bias, interpret results relative to patient's use of biotin. Lab Interpretation Abnormal (test code = 09330-2) [facility] (NA, K, CL, CO2, GLUCOSE, BUN, CREATININE, CA)2021-05-19 15:16:19 Test Item Value Reference Range Interpretation Comments NA (test code = 132 mmol/L 135-145 L 6792661186) K (test code = 4.7 mmol/L 3.5-5.0 4711397771) CL (test code = 98 mmol/L 98-108 9260536258) CO2 TOTAL (test code = 24 mmol/L 23-31 1342221126) AGAP (test code = 2-16 4397272608) BUN (test code = 30 mg/dL 7-23 H 4613766705) GLUCOSE (test code = 101 mg/dL 70-110 4651011604) CREATININE (test code = 4.70 mg/dL 0.50-1.04 H 0432520629) CALCIUM (test code = 8.3 mg/dL 8.6-10.6 L 9687371133) eGFR (test code = mL/min/1.73m2 4429632794) BRANDI (test code = BRANDI) Association of [...] tests). Lab Interpretation Abnormal (test code = 94435-4) [facility] 14:16:27 Test Item Value Reference Range Interpretation Comments POCT GLU (test code = 1873496666) 112 mg/dL 70-110 H Lab Interpretation (test code = Abnormal 74512-7) General acute hospital WITH [id number] 13:09:08 Test Item Value Reference Range Interpretation [...] (test code = 51.2 fL 39.0-49.9 H 12568-9) RDW-CV (test code = 14.6 % 12.0-15.5 788-0) PLT (test code = See_Comment L [Automated 777-3) message] The sy stem which generated this result transmitted reference range : 166 - 358 10*3/ ?L. The reference r alba was not used to interpret this result as normal/abnormal . MPV (test code = 11.0 fL 9.5-12.9 68711-4) NRBC/100 WBC (test See_Comment [Automat ed code = 8653022688) message] The system which generated this result transmitted reference range : 0.0 - 10.0 /100 WBCs. The refer ence range was not u sed to interpret th is result as normal/abnormal . NRBC x10^3 (test code <0.01 See_Comment [Auto mated = 6295658177) message] The s ystem which generated this result transmitted reference range : 10*3/?L. The reference range was not used to interpret this result as normal/abnormal . GRAN MAT (NEUT) % 82.8 % (test code = 770-8) IMM GRAN % (test code 0.40 % = 3783479121) LYMPH % (test code = 7.8 % 736-9) MONO % (test code = 7.9 % 5905-5) EOS % (test code = 0.7 % 713-8) BASO % (test code = 0.4 % 706-2) GRAN MAT x10^3(ANC) 5.98 10*3/uL 1.88-7.09 (test code = 6409523833) IMM GRAN x10^3 (test 0.03 10*3/uL 0.00-0.06 code = 6740744268) LYMPH x10^3 (test code 0.56 10*3/uL 1.32-3.29 L = 731-0) MONO x10^3 (test code 0.57 10*3/uL 0.33-0.92 = 742-7) EOS x10^3 (test code = 0.05 10*3/uL 0.03-0.39 711-2) BASO x10^3 (test code 0.03 10*3/uL 0.01-0.07 = 704-7) Lab Interpretation Abnormal (test code = 63879-3) [facility] ([facility]Ab)2021-05-19 09:35:37 Test Item Value Reference Range Interpretation Comments HBsAB (test code = Positive 9933219790) HBsAb mIU/mL Semi-Quantitative (test code = 9273496315) BRANDI (test code = Interpretation: BRANDI) ?Hepatitis B Surface Antibody ? Negative - Patient is considered to be not immune to infection with HBV. ? ? Positive - Anti-HBs detected at greater than or equal to 12 mIU/mL. ?Patient is considered to be immune to infection with HBV. ? [facility]21-[facility]-19 09:17:53 Test Item Value Reference Range Interpretation Comments HBsAg Semi-Quantitative (test code = Negative Negative 5195-3) [facility]-19 03:13:02 Test Item Value Reference Range Interpretation Comments POCT GLU (test code = 8144812495) 110 mg/dL 70-110 Lab Interpretation (test code = Normal 12488-3) [facility] GLUCOSE (AUTOMATED)2021-05-18 23:00:40 Test Item Value Reference Range Interpretation Comments POCT GLU (test code = 7935742350) 177 mg/dL 70-110 H Lab Interpretation (test code = Abnormal 45394-7) [facility] GLUCOSE (AUTOMATED)2021-05-18 17:50:50 Test Item Value Reference Range Interpretation Comments POCT GLU (test code = 7627993607) 179 mg/dL 70-110 H Lab Interpretation (test code = Abnormal 08433-7) [facility] GLUCOSE (AUTOMATED)2021-05-18 17:26:29 Test Item Value Reference Range Interpretation Comments POCT GLU (test code = 7778448633) 171 mg/dL 70-110 H Lab Interpretation (test code = Abnormal 63551-9) [facility] METABOLIC PANEL (NA, K, CL, CO2, GLUCOSE, BUN, CREATININE, CA)2021-05-18 15:43:01 Test Item Value Reference Range Interpretation Comments NA (test code = 128 mmol/L 135-145 L 9015954280) K (test code = 5.5 mmol/L 3.5-5.0 H 9325018867) CL (test code = 94 mmol/L 98-108 L 8754780407) CO2 TOTAL (test code = 24 mmol/L 23-31 8069867421) AGAP (test code = 2-16 2473326586) BUN (test code = 56 mg/dL 7-23 H 6677921512) GLUCOSE (test code = 130 mg/dL 70-110 H 6581194012) CREATININE (test code = 7.52 mg/dL 0.50-1.04 H 7946839082) CALCIUM (test code = 7.8 mg/dL 8.6-10.6 L 9608175661) eGFR (test code = mL/min/1.73m2 9905241438) BRANDI (test code = BRANDI) Association of [...] tests). Lab Interpretation Abnormal (test code = 80777-9) [facility] GLUCOSE (AUTOMATED)2021-05-18 13:33:12 Test Item Value Reference Range Interpretation Comments POCT GLU (test code = 7158016230) 129 mg/dL 70-110 H Lab Interpretation (test code = Abnormal 46932-4) [facility] GLUCOSE (AUTOMATED)2021-05-17 22:57:15 Test Item Value Reference Range Interpretation Comments POCT GLU (test code = 8994427537) 215 mg/dL 70-110 H Lab Interpretation (test code = Abnormal 58093-8) [facility] 18:02:09 Test Item Value Reference Range Interpretation Comments LVOT diameter (test code 2.00 cm = 3281694382) [facility] [place] (test code 134.0 cm/s = 3736575264) [facility] [place] [facility] [place] (test code 54.2 cm/s = 1968746237) E/A ratio (test code = ratio 3296618830) E wave decelartion time 0.22 s (test code = 5384027380) LA size (test code = 5.4 cm 0766436459) MV stenosis pressure 1/2 65.0 ms time (test code = 5250868498) MV dec slope (test code 604.00 cm/s2 = 3271443931) Ao root annulus (test 2.7 cm code = 1303324246) Ao root diam (test code 2.70 cm = 2151884666) Aortic root (test code = 2.7 cm 3712079050) LVIDD (test code = 5.10 cm 6420423943) IVS (test code = 1.06 cm 3755732090) Interventricular Septum 1.06 cm Diastolic Thickness by 2D (test code = 1313547) LVPWD (test code = 1.00 cm 1596903133) PW (test code = 1.00 cm 0.6-1.8 2417003558) LVIDS (test code = 3.70 cm 4948773811) FS (test code = 27 % 4436070265) EF(Teich) (test code = 52.60 % 0469956092) EF - 2D (test code = 52.60 % 42884722) MR max PG (test code = 123.90 mm[Hg] 1124629772) MR max marietta (test code = 556.50 cm/s 7443403042) Mr max marietta (test code = 556.5 m/s 7630545252) LAV(MOD-sp4) (test code 46.70 mL = 1680379892) LA Volume Index (BP) 29.2 mL/m2 (test code = 9897796788) LA volume (BP) (test 51.8 mL code = 4136331350) LAV(MOD-sp2) (test code 52.40 mL = 8685059726) Aortic valve mean 105.0 cm/s velocity (test code = 5797732311) Ao peak marietta (test code = 160.0 cm/s 0996183537) Ao VTI (test code = 30.0 cm 8242968750) Ao max PG (test code = 10.20 mm[Hg] 8202707017) AV peak gradient (test mmHg code = 6182494242) AV mean gradient (test mmHg code = 3539233585) LVOT stroke volume (test 63.60 cm3 code = 4276274614) LVOT peak marietta (test code 108.3 cm/s = 6649910394) LVOT mn grad (test code mmHg = 0463767377) AV LVOT peak gradient mmHg (test code = 0377642982) LVOT peak VTI (test code 20.2 cm = 8393280283) AV area by cont VTI 2.1 cm2 (test code = 4055950466) AV area peak marietta (test 2.1 cm2 code = 2568062744) LV V1 mean (test code = 66.80 cm/s 5413351088) AV valve area (test code 2.12 cm2 = 9569918681) TR Peak Marietta (test code = 342.9 cm/s 0394281277) Triscuspid Valve mmHg Regurgitation Peak Gradient (test code = 7590722328) PV REGURGITATION PEAK mmHg GRADIENT (test code = 9132675138) PI dec slope (test code 438.00 cm/s2 = 1426246482) Pulmonic Regurgitant End 105.3 cm/s Max Velocity (test code = 2136407870) Inferior Vena Cava 2.33 cm Diameter (test code = 7457610055) MV Prop V (test code = 37.50 cm/s 3883353686) Radiology Study observation (narrative) (test code = 64281-5) ADD (test code = ADD) Addendum by Brenda Fuentes MD on 05/17/2021 3:16 PM DROP WIRER ?Left?Ventricle: Low normal systolic function with a [...] (73.9 kg) 1.81 sq meters 165/73 71 [facility] GLUCOSE (AUTOMATED)2021-05-17 17:54:17 Test Item Value Reference Range Interpretation Comments POCT GLU (test code = 7479226652) 134 mg/dL 70-110 H Lab Interpretation (test code = Abnormal 36303-8) [facility] GLUCOSE (AUTOMATED)2021-05-17 14:18:37 Test Item Value Reference Range Interpretation Comments POCT GLU (test code = 7081508642) 119 mg/dL 70-110 H Lab Interpretation (test code = Abnormal 65676-4) [facility]6040-[facility] 11:21:13 Test Item Value Reference Range Interpretation Comments NT-proBNP (test code 483389 pg/mL See_Comment H [Autom ated = 8779894032) message] The system which generated this result transmitted reference range : <=125. The reference range was not used to interpret this result as normal/abnormal . BRANDI (test code = BRANDI) Biotin has been reported to cause a negative bias, interpret results relative to patient's use of biotin. Lab Interpretation Abnormal (test code = 73121-6) [facility] CenterCBC WITHOUT [id number] 11:09:22 Test Item Value Reference Range Interpretation Comments WBC (test code = 6690-2) See_Comment [A utomated message] The system [employer] generated this result transmit levi reference range : 4.30 - 11.10 10*3/?L. The reference range was not used to interpret this result as normal/abnormal . RBC (test code = 789-8) See_Comment L [Au tomated message] The system [employer] generated this result transmit levi reference range [...] See_Comment L [Au tomated message] The system [employer] generated this result transmit levi reference range : 166 - 358 10*3/?L. The reference range was not used to interpret this result as normal/abnormal . MPV (test code = 11.1 fL 9.5-12.9 61135-5) RDW-CV (test code = 14.5 % 12.0-15.5 788-0) RDW-SD (test code = 50.8 fL 39.0-49.9 H 59291-6) NRBC x10^3 (test code = <0.01 See_Comment [Au tomated message] 0863422359) The system [employer] h generated this result transmit levi reference range : 10*3/?L. The reference range was not used to interpret this result as normal/abnormal . NRBC/100 WBC (test code See_Comment [Au tomated message] = 0476329564) The system [employer] ch generated this result transmit levi reference range : 0.0 - 10.0 /100 WBC s. The reference r alba was not used to interpret this result as normal/abnormal . IPF % (test code = 4956294442) Lab Interpretation (test Abnormal code = 12581-4) [facility]20[facility] 10:56:23 Test Item Value Reference Range Interpretation Comments MAGNESIUM (test code = 7428046073) 2.1 mg/dL 1.7-2.4 Lab Interpretation (test code = Normal 15488-3) [facility] (NA, K, CL, CO2, GLUCOSE, BUN, CREATININE, CA)2021-05-17 10:56:22 Test Item Value Reference Range Interpretation Comments NA (test code = 130 mmol/L 135-145 L 5308455401) K (test code = 4.6 mmol/L 3.5-5.0 6561509861) CL (test code = 96 mmol/L 98-108 L 3012137642) CO2 TOTAL (test code = 26 mmol/L 23-31 3358532678) AGAP (test code = 2-16 9532862407) BUN (test code = 42 mg/dL 7-23 H 7387509626) GLUCOSE (test code = 148 mg/dL 70-110 H 1930698783) CREATININE (test code = 5.84 mg/dL 0.50-1.04 H 8025417842) CALCIUM (test code = 7.9 mg/dL 8.6-10.6 L 6581768038) eGFR (test code = mL/min/1.73m2 5572663344) BRANDI (test code = BRANDI) Association of [...] tests). Lab Interpretation Abnormal (test code = 17075-1) [facility] CenterPHOSPHORUS2022-[facility]-13 10:56:02 Test Item Value Reference Range Interpretation Comments PHOSPHORUS (test code = 4745314204) 5.8 mg/dL 2.5-5.0 H Lab Interpretation (test code = Abnormal 56921-2) [facility] GLUCOSE (AUTOMATED)2021-05-16 22:43:07 Test Item Value Reference Range Interpretation Comments POCT GLU (test code = 5892935878) 231 mg/dL 70-110 H Lab Interpretation (test code = Abnormal 70686-6) [facility] GLUCOSE (AUTOMATED)2021-05-16 17:43:53 Test Item Value Reference Range Interpretation Comments POCT GLU (test code = 2193665586) 154 mg/dL 70-110 H Lab Interpretation (test code = Abnormal 29185-8) [facility]2021-[facility]-16 13:42:36 Test Item Value Reference Range Interpretation Comments POCT GLU (test code = 4805781628) 121 mg/dL 70-110 H Lab Interpretation (test code = Abnormal 40643-0) [facility] CenterCB WITHOUT [id number] 09:48:31 Test Item Value Reference Range Interpretation Comments WBC (test code = 6690-2) See_Comment [A utomated message] The system [employer] generated this result transmit levi reference range : 4.30 - 11.10 10*3/?L. The reference range was not used to interpret this result as normal/abnormal . RBC (test code = 789-8) See_Comment L [Au tomated message] The system [employer] generated this result transmit levi reference range [...] See_Comment L [Au tomated message] The system [employer] generated this result transmit levi reference range : 166 - 358 10*3/?L. The reference range was not used to interpret this result as normal/abnormal . MPV (test code = 10.9 fL 9.5-12.9 76507-0) RDW-CV (test code = 15.0 % 12.0-15.5 788-0) RDW-SD (test code = 52.6 fL 39.0-49.9 H 28277-6) NRBC x10^3 (test code = <0.01 See_Comment [Au tomated message] 4582033075) The system [employer] generated this result transmit levi reference range : 10*3/?L. The reference range was not used to interpret this result as normal/abnormal . NRBC/100 WBC (test code See_Comment [Au tomated message] = 3276481439) The system [facility] generated this result transmit levi reference range : 0.0 - 10.0 /100 WBC s. The reference r alba was not used to interpret this result as normal/abnormal . IPF % (test code = 3314296832) Lab Interpretation (test Abnormal code = 16387-4) [facility] CenterLipid [facility] (Total Cholesterol, Triglycerides, HDL)2021-05-16 09:36:18 Test Item Value Reference Range Interpretation Comments CHOL (test code = 157 mg/dL 120-200 3705845942) HDL (test code = 26 mg/dL >50 L 2712776385) HDLC RATIO (test code = See_Comment H [Au tomated message] 6369678031) The system [employer] generated this result transmit levi reference range : <=4.5. The refe rence range was not u sed to interpret th is result as normal/abnormal . TRIG (test code = 146 mg/dL 30-170 9146720862) LDL CHOL (test code = 102 mg/dL See_Comment [Auto mated message] 63039-5) The system [employer] generated this result transmit levi reference range : <=160. The refe rence range was not u sed to interpret th is result as normal/abnormal . VLDL (test code = 29 mg/dL 5-60 6325856873) Lab Interpretation (test Abnormal code = 05583-6) [facility] CenterGlycosylated Hemoglobin (A1C)2021-05-16 09:22:50 Test Item Value Reference Range Interpretation Comments HGB A1C (test code = 6.2 % 4.0-5.7 H 4548-4) BRANDI (test code = BRANDI) Reference RangesNormal: <5.7%Prediabetes: 5.7 - 6.4%Diabetes: > 6.5% Lab Interpretation (test Abnormal code = 26748-6) [facility] CenterTroponin [id number] 09:19:18 Test Item Value Reference Interpretation Comments Range TROPONIN I (test 0.028 ng/mL See_Comment [Automated code = 0750056662) message] The system which generated this result [...] biotin. Lab Interpretation Normal (test code = 12094-2) [facility] Metabolic Panel (NA, K, CL, CO2, GLUCOSE, BUN, CREATININE, CA)2021-05-16 09:08:35 Test Item Value Reference Range Interpretation Comments NA (test code = 134 mmol/L 135-145 L 7768016154) K (test code = 4.3 mmol/L 3.5-5.0 3413998233) CL (test code = 98 mmol/L 98-108 2344442758) CO2 TOTAL (test code = 27 mmol/L 23-31 8173253349) AGAP (test code = 2-16 5738190634) BUN (test code = 28 mg/dL 7-23 H 8629572444) GLUCOSE (test code = 114 mg/dL 70-110 H 5848077561) CREATININE (test code = 4.79 mg/dL 0.50-1.04 H 9374544682) CALCIUM (test code = 8.2 mg/dL 8.6-10.6 L 4446808839) eGFR (test code = mL/min/1.73m2 7959342420) BRANDI (test code = BRANDI) Association of [...] tests). Lab Interpretation Abnormal (test code = 10666-0) [facility] CenterMagnesium Rwikk1460-43-96 09:08:35 Test Item Value Reference Range Interpretation Comments MAGNESIUM (test code = 9264406428) 2.2 mg/dL 1.7-2.4 Lab Interpretation (test code = Normal 05139-0) [facility] CenterTroponin [id number] 03:08:26 Test Item Value Reference Interpretation Comments Range TROPONIN I (test 0.019 ng/mL See_Comment [Automated code = 1799456410) message] The system which generated this result [...] biotin. Lab Interpretation Normal (test code = 08004-3) [facility] CenterPhosphorus Iptdo7503-32-64 02:56:02 Test Item Value Reference Range Interpretation Comments PHOSPHORUS (test code = 3442598782) 4.5 mg/dL 2.5-5.0 Lab Interpretation (test code = Normal 83954-0) [facility] CenterPO[facility]SE [facility])2021-05-16 02:28:15 Test Item Value Reference Range Interpretation Comments POCT GLU (test code = 7334403239) 155 mg/dL 70-110 H Lab Interpretation (test code = Abnormal 56844-9) [facility] CenterThyroid Stimulating Hormone (TSH)2021-05-16 01:56:53 Test Item Value Reference Range Interpretation Comments TSH (test code = See_Comment [Automated message] 1762385841) The system [employer] generated this result transmitted ref erence range: 0.45 - 4 .70 mIU/L. The refe rence range was not u sed to interpret this result as normal/abnor mal. Lab Interpretation (test Normal code = 59738-1) [facility] CenterGlycosylated Hemoglobin (A1C)2021-05-16 01:17:48 Test Item Value Reference Range Interpretation Comments HGB A1C (test code = 6.3 % 4.0-5.7 H 4548-4) BRANDI (test code = BRANDI) Reference RangesNormal: <5.7%Prediabetes: 5.7 - 6.4%Diabetes: > 6.5% Lab Interpretation (test Abnormal code = 45858-4) [facility] CenterN-TERMINAL HEO-GZL4672-45-11 20:42:55 Test Item Value Reference Range Interpretation Comments NT-proBNP (test code 517403 pg/mL See_Comment H [Autom ated = 3962302346) message] The system which generated this result transmitted reference range : <=125. The reference range was not used to interpret this result as normal/abnormal . BRANDI (test code = BRANDI) Biotin has been reported to cause a negative bias, interpret results relative to patient's use of biotin. Lab Interpretation Abnormal (test code = 48042-1) [facility] CenterTROPONIN [id number] 20:28:40 Test Item Value Reference Interpretation Comments Range TROPONIN I (test 0.012 ng/mL See_Comment [Automated code = 4970232201) message] The system which generated this result [...] biotin. Lab Interpretation Normal (test code = 99699-8) [facility] CenterD-RQGKH4985-44-61 20:27:34 Test Item Value Reference Interpretation Comments Range D-DIMER (test code = See_Comment H [Autom ated 1513177015) message] The system which generated this result [...] diagnosis. Lab Interpretation Abnormal (test code = 31410-3) [facility] CenterMAGNESIUM2022-02-11 20:17:56 Test Item Value Reference Range Interpretation Comments MAGNESIUM (test code = 0428916137) 1.9 mg/dL 1.7-2.4 Lab Interpretation (test code = Normal 37991-0) [facility]. METABOLIC PANEL (42158)2021-05-15 20:17:36 Test Item Value Reference Range Interpretation Comments NA (test code = 136 mmol/L 135-145 2740805515) K (test code = 4.2 mmol/L 3.5-5.0 0515930120) CL (test code = 99 mmol/L 98-108 8159481901) CO2 TOTAL (test code = 26 mmol/L 23-31 8254065034) AGAP (test code = 2-16 9884457633) BUN (test code = 24 mg/dL 7-23 H 0305487789) GLUCOSE (test code = 112 mg/dL 70-110 H 3704563749) CREATININE (test code = 3.82 mg/dL 0.50-1.04 H 9620294836) TOTAL BILI (test code = 1.0 mg/dL 0.1-1.5 5296409600) CALCIUM (test code = 8.5 mg/dL 8.6-10.6 L 7772587123) T PROTEIN (test code = 8.6 g/dL 6.3-8.2 H 4131879491) ALBUMIN (test code = 4.2 g/dL 3.5-5.0 6564688475) ALK PHOS (test code = 176 U/L 34-122 H 5393204564) ALTv (test code = 13 U/L 5-35 1742-6) AST(SGOT) (test code = 26 U/L 13-40 1121881385) eGFR (test code = mL/min/1.73m2 2790513243) BRANDI (test code = BRANDI) Association of [...] tests). Lab Interpretation Abnormal (test code = 80070-4) [facility] CenterLIPASE2022-02-11 20:17:15 Test Item Value Reference Range Interpretation Comments LIPASE (test code = 1126914434) 125 U/L 0-220 Lab Interpretation (test code = Normal 56350-6) [facility] CenterPROTHROMBIN TIME / [id number] 20:02:29 Test Item Value Reference Range Interpretation [...] tions. Lab Interpretation (test Normal code = 13408-4) [facility] WITH [id number] 19:52:47 Test Item Value Reference Range Interpretation [...] (test code = 52.6 fL 39.0-49.9 H 90063-7) RDW-CV (test code = 15.0 % 12.0-15.5 788-0) PLT (test code = See_Comment L [Automated 777-3) message] The sy stem which generated this result transmitted reference range : 166 - 358 10*3/ ?L. The reference r alba was not used to interpret this result as normal/abnormal . MPV (test code = 10.9 fL 9.5-12.9 10185-2) NRBC/100 WBC (test See_Comment [Automat ed code = 9307283285) message] The system which generated this result transmitted reference range : 0.0 - 10.0 /100 WBCs. The refer ence range was not u sed to interpret th is result as normal/abnormal . NRBC x10^3 (test code <0.01 See_Comment [Auto mated = 2926760766) message] The s ystem which generated this result transmitted reference range : 10*3/?L. The reference range was not used to interpret this result as normal/abnormal . GRAN MAT (NEUT) % 74.8 % (test code = 770-8) IMM GRAN % (test code 0.60 % = 5907075473) LYMPH % (test code = 12.4 % 736-9) MONO % (test code = 8.7 % 5905-5) EOS % (test code = 2.6 % 713-8) BASO % (test code = 0.9 % 706-2) GRAN MAT x10^3(ANC) 4.06 10*3/uL 1.88-7.09 (test code = 0512916314) IMM GRAN x10^3 (test 0.03 10*3/uL 0.00-0.06 code = 7042172667) LYMPH x10^3 (test code 0.67 10*3/uL 1.32-3.29 L = 731-0) MONO x10^3 (test code 0.47 10*3/uL 0.33-0.92 = 742-7) EOS x10^3 (test code = 0.14 10*3/uL 0.03-0.39 711-2) BASO x10^3 (test code 0.05 10*3/uL 0.01-0.07 = 704-7) Lab Interpretation Abnormal (test code = 18531-5) [facility]] [facility] Serum or Kazzpo1671-80-43 17:30:00 Test Item Value Reference Range Interpretation Comments Troponin I.cardiac 0.35 See_Comment [Automat ed message] The [Mass/volume] in Serum syste m which generated or Plasma (test code = this result transmitted Troponin I.cardiac reference range: <=0.045. [Mass/volume] in Serum The r eference range was or Plasma) not used to int erpret this result as normal/abnormal . [facility] WatchfinderannAbsolute lymphocyte ooabq4308-00-29 11:37:00 Test Item Value Reference Range Interpretation Comments Absolute lymphocyte count (test code = 0.7 0.7-4.9 Absolute lymphocyte count) [facility] HermannBasophil %2019-02-18 11:37:00 Test Item Value Reference Range Interpretation Comments Basophil % (test code = 2.4 See_Comment [Au tomated message] The Basophil %) system which ge nerated this result tra nsmitted reference range : <=1.3. The reference r alba was not used to int erpret this result as normal/abnormal . [facility]annBlood anisocytosis ktgyqnyuv0450-05-29 11:37:00 Test Item Value Reference Range Interpretation Comments Blood anisocytosis detection (test code 2+ = Blood anisocytosis detection) [facility] erythrocytes count (number/volume)2019-02-18 11:37:00 Test Item Value Reference Range Interpretation Comments Blood erythrocytes count 3.34 3.86-4.86 (number/volume) (test code = Blood erythrocytes count (number/volume)) [facility]annBlood hematocrit (volume fraction)2019-02-18 11:37:00 Test Item Value Reference Range Interpretation Comments Blood hematocrit (volume fraction) 31.8 36.0-45.0 (test code = Blood hematocrit (volume fraction)) [facility]annBlood morphology interpretation urjwjztbo4904-74-68 11:37:00 Test Item Value Reference Range Interpretation Comments Blood morphology interpretation Noted narrative (test code = Blood morphology interpretation narrative) [facility]annBlood platelet mean hrdwlr6983-84-71 11:37:00 Test Item Value Reference Range Interpretation Comments Blood platelet mean volume (test code = 9.8 7.6-11.3 Blood platelet mean volume) [facility]annBlood poikilocytosis detection by light moeyutsicd8013-98-33 11:37:00 Test Item Value Reference Range Interpretation Comments Blood poikilocytosis detection by light 1+ microscopy (test code = Blood poikilocytosis detection by light microscopy) [facility]annCalcium [Mass/volume] in Serum or Fygvmr7467-74-44 11:37:00 Test Item Value Reference Range Interpretation [...] [Moles/volume] in Serum or Plasma) [facility]annChemistry upruwrilo5992-40-31 11:37:00 Test Item Value Reference Range Interpretation Comments Chemistry procedure (test code = 95.3 80-100 Chemistry procedure) [facility]annChloride [Moles/volume] in Serum or Yoxqox6563-47-32 11:37:00 Test Item Value Reference Range Interpretation Comments Chloride [Moles/volume] in Serum or 98 98-107 Plasma (test code = Chloride [Moles/volume] in Serum or Plasma) [facility]annCreatinine [Mass/volume] in Serum or Faugti3402-99-31 11:37:00 Test Item Value Reference Range Interpretation Comments Creatinine [Mass/volume] in Serum or 7.35 0.55-1.3 Plasma (test code = Creatinine [Mass/volume] in Serum or Plasma) [facility]annGlucose [Mass/volume] in Serum or Bkbobo9540-18-93 11:37:00 Test Item Value Reference Range Interpretation Comments Glucose [Mass/volume] in Serum or 110 74-106 Plasma (test code = Glucose [Mass/volume] in Serum or Plasma) [facility]annMagnesium [Mass/volume] in Serum or Kubxzs4255-45-10 11:37:00 Test Item Value Reference Range Interpretation Comments Magnesium [Mass/volume] in Serum or 2.4 1.8-2.4 Plasma (test code = Magnesium [Mass/volume] in Serum or Plasma) [facility]annPhosphate [Mass/volume] in Serum or Upyqxd0724-49-98 11:37:00 Test Item Value Reference Range Interpretation Comments Phosphate [Mass/volume] in Serum or 4.7 2.5-4.9 Plasma (test code = Phosphate [Mass/volume] in Serum or Plasma) [facility]annPotassium [Moles/volume] in Serum or Ppwsbi3848-61-96 11:37:00 Test Item Value Reference Range Interpretation [...] [facility]annUrea nitrogen [Mass/volume] in Serum or Ofiurk9531-34-30 11:37:00 Test Item Value Reference Range Interpretation Comments Urea nitrogen [Mass/volume] in Serum or 74 7-18 Plasma (test code = Urea nitrogen [Mass/volume] in Serum or Plasma) [facility]annUrine dipstick testing at vyexb-yr-ihxr5051-11-17 11:37:00 Test Item Value Reference Range Interpretation Comments Urine dipstick testing at pbsam-mh-uypc 2.6 4.3-10.9 (test code = Urine dipstick testing at pmsda-eu-awjk) [facility]annAlanine aminotransferase [Enzymatic activity/volume] in Serum or Plasma by With P-5'-2019-02-18 00:35:00 Test Item Value Reference Range Interpretation Comments Alanine aminotransferase [Enzymatic 64 12-78 activity/volume] in Serum or Plasma by With P-5'- (test code = Alanine aminotransferase [Enzymatic activity/volume] in Serum or Plasma by With P-5'-) [facility]annAlbumin [Mass/volume] in Serum or Plasma by Bromocresol purple (BCP) dye binding grvl3395-03-00 00:35:00 Test Item Value Reference Range Interpretation Comments Albumin [Mass/volume] in Serum or 3.6 3.4-5.0 Plasma by Bromocresol purple (BCP) dye binding meth (test code = Albumin [Mass/volume] in Serum or Plasma by Bromocresol purple (BCP) dye binding meth) [facility]annAlkaline phosphatase [Enzymatic activity/volume] in Serum or Fnksct8814-10-49 00:35:00 Test Item Value Reference Range Interpretation Comments Alkaline phosphatase [Enzymatic 236 45-117 activity/volume] in Serum or Plasma (test code = Alkaline phosphatase [Enzymatic activity/volume] in Serum or Plasma) [facility]annAspartate aminotransferase [Enzymatic activity/volume] in Serum or Plasma by With O-03502-4893334-69-10 00:35:00 Test Item Value Reference Range Interpretation Comments Aspartate aminotransferase [Enzymatic 48 15-37 activity/volume] in Serum or Plasma by With P-5 (test code = Aspartate aminotransferase [Enzymatic activity/volume] in Serum or Plasma by With P-5) [facility]annBilirubin.direct [Mass/volume] in Serum or Bnxusn1335-58-81 00:35:00 Test Item Value Reference Range Interpretation Comments Bilirubin.direct 0.2 See_Comment [Automated message] The [Mass/volume] in Serum syste m which generated or Plasma (test code = this result transmitted Bilirubin.direct reference r alba: <=0.2. [Mass/volume] in Serum The r eference range was or Plasma) not used to int erpret this result as emilee l/abnormal. [facility]annBilirubin.total [Mass/volume] in Serum or Jhznxm8349-34-85 00:35:00 Test Item Value Reference Range Interpretation Comments Bilirubin.total [Mass/volume] in Serum 0.6 0.2-1.0 or Plasma (test code = Bilirubin.total [Mass/volume] in Serum or Plasma) [facility]annINR in Blood by Coagulation kjjfi9133-98-21 00:35:00 Test Item Value Reference Range Interpretation Comments INR in Blood by Coagulation assay 1.15 1 (test code = INR in Blood by Coagulation assay) [facility]annNatriuretic peptide.B prohormone N-Terminal [Mass/volume] in Serum or Uyigwh1687-21-44 00:35:00 Test Item Value Reference Range Interpretation Comments Natriuretic peptide.B prohormone > 295779 N-Terminal [Mass/volume] in Serum or Plasma (test code = Natriuretic peptide.B prohormone N-Terminal [Mass/volume] in Serum or Plasma) [facility]annProtein [Mass/volume] in Serum or Ssdcmu9706-68-20 00:35:00 Test Item Value Reference Range Interpretation Comments Protein [Mass/volume] in Serum or 8.0 6.4-8.2 Plasma (test code = Protein [Mass/volume] in Serum or Plasma) [facility] [Mass/volume] in Serum or [id number] 00:35:00 Test Item Value Reference Range Interpretation Comments Troponin I.cardiac 0.32 See_Comment [Automat ed message] The [Mass/volume] in Serum syste m which generated or Plasma (test code = this result transmitted Troponin I.cardiac reference range: <=0.045. [Mass/volume] in Serum The r eference range was or Plasma) not used to int erpret this result as normal/abnormal . [facility] or plasma sodium measurement (moles/volume)2019-01-26 04:05:00 Test Item Value Reference Range Interpretation Comments Serum or plasma sodium measurement 136 136-145 (moles/volume) (test code = Serum or plasma sodium measurement (moles/volume)) [facility] nitrogen [Mass/volume] in Serum or [id number] 04:05:00 Test Item Value Reference Range Interpretation Comments Urea nitrogen [Mass/volume] in Serum or 52 7-18 Plasma (test code = Urea nitrogen [Mass/volume] in Serum or Plasma) [facility]Urine dipstick testing at [id number] 04:05:00 Test Item Value Reference Range Interpretation Comments Urine dipstick testing at [id number]-if-[id number] 3.4 4.3-10.9 (test code = Urine dipstick testing at [id number]) [facility] [id number] 04:05:00 Test Item Value Reference Range Interpretation [...] int erpret this result as normal/abnormal . [facility] count (number/volume)2019-01-26 04:05:00 Test Item Value Reference Range Interpretation Comments Blood erythrocytes count 3.64 3.86-4.86 (number/volume) (test code = Blood erythrocytes count (number/volume)) [facility] hematocrit (volume fraction)2019-01-26 04:05:00 Test Item Value Reference Range Interpretation Comments Blood hematocrit (volume fraction) 35.7 36.0-45.0 (test code = Blood hematocrit (volume fraction)) [facility] morphology interpretation [id number] 04:05:00 Test Item Value Reference Range Interpretation Comments Blood morphology interpretation Not seen narrative (test code = Blood morphology interpretation narrative) [facility] platelet mean [id number] 04:05:00 Test Item Value Reference Range Interpretation Comments Blood platelet mean volume (test code = 9.2 7.6-11.3 Blood platelet mean volume) [facility]Calcium [Mass/volume] in Serum or [id number] 04:05:00 Test Item Value Reference Range Interpretation [...] dioxide, total [Moles/volume] in Serum or Plasma) [facility] [id number] 04:05:00 Test Item Value Reference Range Interpretation Comments Chemistry procedure (test code = 98.1 80-100 Chemistry procedure) [facility]Chloride [Moles/volume] in Serum or [id number] 04:05:00 Test Item Value Reference Range Interpretation Comments Chloride [Moles/volume] in Serum or 98 98-107 Plasma (test code = Chloride [Moles/volume] in Serum or Plasma) [facility]annCreatinine [Mass/volume] in Serum or [id number] 04:05:00 Test Item Value Reference Range Interpretation Comments Creatinine [Mass/volume] in Serum or 6.36 0.55-1.3 Plasma (test code = Creatinine [Mass/volume] in Serum or Plasma) [facility]Gl[facility] [Mass/volume] in Serum or [id number] 04:05:00 Test Item Value Reference Range Interpretation Comments Glucose [Mass/volume] in Serum or 251 74-106 Plasma (test code = Glucose [Mass/volume] in Serum or Plasma) [facility] [Moles/volume] in Serum or [id number] 04:05:00 Test Item Value Reference Range Interpretation Comments Potassium [Moles/volume] in Serum or 4.7 3.5-5.1 Plasma (test code = Potassium [Moles/volume] in Serum or Plasma) [facility] w [id number] 01:55:00 Test Item Value Reference Range Interpretation Comments Bacterial culture w ID NORMAL UPPER (test code = Bacterial RESPIRATORY HARI culture w ID) GROWN. [facility] [id number] 16:07:00 Test Item Value Reference Range Interpretation Comments Bedside Glucose (test code = Bedside 175 65-120 Glucose) [facility] [id number] 05:35:00 Test Item Value Reference Range Interpretation Comments Blood Morphology Blood Morphology Comment (test code = Comment Blood Morphology Comment) [facility]2019-07-10 05:35:00 Test Item Value Reference Range Interpretation Comments Total Bilirubin (test code = Total 0.5 0.2-1.0 Bilirubin) [facility]2019-07-10 05:35:00 Test Item Value Reference Range Interpretation Comments Sodium Level (test code = Sodium Level) 137 136-145 [facility]2019-07-10 05:35:00 Test Item Value Reference Range Interpretation Comments Serum Total Protein (test code = Serum 7.5 6.4-8.2 Total Protein) [facility]2019-07-10 05:35:00 Test Item Value Reference Range Interpretation Comments Potassium Level (test code = Potassium 4.8 3.5-5.1 Level) [facility]2019-07-10 05:35:00 Test Item Value Reference Range Interpretation Comments Glucose Level (test code = Glucose 90 74-106 Level) [facility]2019-07-10 05:35:00 Test Item Value Reference Range Interpretation Comments Globulin (test code = Globulin) 4.3 2.3-3.5 [facility]2019-07-10 05:35:00 Test Item Value Reference Range Interpretation Comments Estimat Glomerular 7 See_Comment [Automat ed message] The Filtration Rate (test system which generated code = Estimat this result t ransmitted Glomerular Filtration refere nce range: >=90. Rate) The reference r alba was not used to int erpret this result as normal/abnormal . [facility]2019-07-10 05:35:00 Test Item Value Reference Range Interpretation Comments Creatinine (test code = Creatinine) 6.02 0.55-1.3 [facility]2019-07-10 05:35:00 Test Item Value Reference Range Interpretation Comments Chloride Level (test code = Chloride 102 98-107 Level) [facility]2019-07-10 05:35:00 Test Item Value Reference Range Interpretation Comments Carbon Dioxide Level (test code = 25 21-32 Carbon Dioxide Level) [facility]2019-07-10 05:35:00 Test Item Value Reference Range Interpretation Comments Calcium Level (test code = Calcium 8.1 8.5-10.1 Level) [facility]2019-07-10 05:35:00 Test Item Value Reference Range Interpretation Comments Blood Urea Nitrogen (test code = Blood 43 7-18 Urea Nitrogen) [facility]2019-07-10 05:35:00 Test Item Value Reference Range Interpretation Comments Aspartate Amino Transf (AST/SGOT) (test 36 15-37 code = Aspartate Amino Transf (AST/SGOT)) [facility]2019-07-10 05:35:00 Test Item Value Reference Range Interpretation Comments Alkaline Phosphatase (test code = 252 45-117 Alkaline Phosphatase) [facility]2019-07-10 05:35:00 Test Item Value Reference Range Interpretation Comments Albumin/Globulin Ratio (test code = 0.7 1 1.1-1.8 Albumin/Globulin Ratio) [facility]2019-07-10 05:35:00 Test Item Value Reference Range Interpretation Comments Albumin (test code = Albumin) 3.2 3.4-5.0 [facility]2019-07-10 05:35:00 Test Item Value Reference Range Interpretation Comments Alanine Aminotransferase (ALT/SGPT) 57 12-78 (test code = Alanine Aminotransferase (ALT/SGPT)) [facility]2019-07-10 05:35:00 Test Item Value Reference Range Interpretation Comments White Blood Count (test code = White 2.9 4.3-10.9 Blood Count) [facility]2019-07-10 05:35:00 Test Item Value Reference Range Interpretation Comments Red Cell Distribution Width (test code 17.2 12.1-15.2 = Red Cell Distribution Width) [facility]2019-07-10 05:35:00 Test Item Value Reference Range Interpretation Comments Red Blood Count (test code = Red Blood 3.49 3.86-4.86 Count) [facility]2019-07-10 05:35:00 Test Item Value Reference Range Interpretation Comments Platelet Count (test code = Platelet 116 152-406 Count) [facility]2019-07-10 05:35:00 Test Item Value Reference Range Interpretation Comments Neutrophils % (test code = Neutrophils 49.4 41.7-73.7 %) [facility]2019-07-10 05:35:00 Test Item Value Reference Range Interpretation Comments Monocytes % (test code = Monocytes %) 10.4 3.3-12.3 [facility]2019-07-10 05:35:00 Test Item Value Reference Range Interpretation Comments Mean Platelet Volume (test code = Mean 8.7 7.6-11.3 Platelet Volume) [facility]2019-07-10 05:35:00 Test Item Value Reference Range Interpretation Comments Mean Corpuscular Volume (test code = 98.2 80-100 Mean Corpuscular Volume) [facility]2019-07-10 05:35:00 Test Item Value Reference Range Interpretation Comments Mean Corpuscular Hemoglobin Concent 33.0 32.0-36.0 (test code = Mean Corpuscular Hemoglobin Concent) [facility]2019-07-10 05:35:00 Test Item Value Reference Range Interpretation Comments Mean Corpuscular Hemoglobin (test 32.4 pg 27.0-35.0 code = Mean Corpuscular Hemoglobin) [facility]2019-07-10 05:35:00 Test Item Value Reference Range Interpretation Comments Lymphocytes % (test code = Lymphocytes 30.3 15.3-44.8 %) [facility]2019-07-10 05:35:00 Test Item Value Reference Range Interpretation Comments Hemoglobin (test code = Hemoglobin) 11.3 12.0-15.0 [facility]2019-07-10 05:35:00 Test Item Value Reference Range Interpretation Comments Hematocrit (test code = Hematocrit) 34.3 36.0-45.0 [facility]2019-07-10 05:35:00 Test Item Value Reference Range Interpretation Comments Eosinophils % (test code 8.8 See_Comment [A utomated message] The = Eosinophils %) system ic h generated this result tra nsmitted reference range : <=4.4. The reference r alba was not used to int erpret this result as normal/abnormal . [facility]2019-07-10 05:35:00 Test Item Value Reference Range Interpretation Comments Basophils % (test code 1.1 See_Comment [Aut omated message] The = Basophils %) system which generated this result tra nsmitted reference range : <=1.3. The reference r alba was not used to int erpret this result as normal/abnormal . [facility]2019-07-10 05:35:00 Test Item Value Reference Range Interpretation Comments Absolute Neutrophil (test code = 1.4 1.8-8.0 Absolute Neutrophil) [facility]2019-07-10 05:35:00 Test Item Value Reference Range Interpretation Comments Absolute Monocytes (CBC) (test code = 0.3 0.1-1.3 Absolute Monocytes (CBC)) [facility]2019-07-10 05:35:00 Test Item Value Reference Range Interpretation Comments Absolute Lymphocytes (CBC) (test code = 0.9 0.7-4.9 Absolute Lymphocytes (CBC)) [facility]2019-07-10 05:35:00 Test Item Value Reference Range Interpretation Comments Absolute Eosinophils 0.3 See_Comment [Autom ated message] The (CBC) (test code = system Abiquo ich generated Absolute Eosinophils this re sult transmitted (CBC)) reference range : <=0.5. The reference r alba was not used to int erpret this result as normal/abnormal . [facility]2019-07-10 05:35:00 Test Item Value Reference Range Interpretation Comments Absolute Basophils 0.0 See_Comment [Automat ed message] The (CBC) (test code = system Abiquo ich generated Absolute Basophils this resu lt transmitted (CBC)) reference range : <=0.5. The reference r alba was not used to int erpret this result as normal/abnormal . [facility]2019-07-09 05:43:00 Test Item Value Reference Range Interpretation Comments Prothrombin Time (test code = 12.9 9.5-12.5 Prothrombin Time) [facility]2019-07-09 05:43:00 Test Item Value Reference Range Interpretation Comments INR International Normalized Ratio 1.10 1 (test code = INR International Normalized Ratio) [facility]2019-07-09 05:43:00 Test Item Value Reference Range Interpretation Comments Triglycerides Level (test code = 89 Triglycerides Level) [facility]2019-07-09 05:43:00 Test Item Value Reference Range Interpretation Comments Phosphorus Level (test code = 6.3 2.5-4.9 Phosphorus Level) [facility]2019-07-09 05:43:00 Test Item Value Reference Range Interpretation Comments Magnesium Level (test code = Magnesium 2.3 1.8-2.4 Level) [facility]2019-07-09 05:43:00 Test Item Value Reference Range Interpretation Comments LDL Cholesterol, Calculated (test code 47 1 = LDL Cholesterol, Calculated) [facility]2019-07-09 05:43:00 Test Item Value Reference Range Interpretation Comments HDL Cholesterol (test code = HDL 57 40-60 Cholesterol) [facility]2019-07-09 05:43:00 Test Item Value Reference Range Interpretation Comments Cholesterol/HDL Ratio (test code = 2.14 1 Cholesterol/HDL Ratio) [facility]2019-07-09 05:43:00 Test Item Value Reference Range Interpretation Comments Cholesterol Level (test code = 122 Cholesterol Level) [facility]2019-07-08 19:49:00 Test Item Value Reference Range Interpretation Comments Troponin I (test code = 0.59 See_Comment [Au tomated message] The Troponin I) system which ge nerated this result tra nsmitted reference range : <=0.045. The reference r alba was not used to int erpret this result as normal/abnormal . [facility]2019-07-08 12:50:00 Test Item Value Reference Range Interpretation Comments Hepatitis B Surface Hepatitis B Surface Antigen (test code = Antigen Hepatitis B Surface Antigen) [facility]2019-07-08 12:50:00 Test Item Value Reference Range Interpretation Comments Hepatitis B Surface Hepatitis B Surface Antibody (test code = Antibody Hepatitis B Surface Antibody) [facility]2019-07-08 12:50:00 Test Item Value Reference Range Interpretation Comments Hepatitis B Core Total Hepatitis B Core Total Antibody (test code = Antibody Hepatitis B Core Total Antibody) [facility]2019-07-08 12:50:00 Test Item Value Reference Range Interpretation Comments Hepatitis C Antibody Hepatitis C Antibody (test code = Hepatitis C Antibody) [facility]2019-07-08 12:50:00 Test Item Value Reference Range Interpretation Comments Hepatitis C Ab Signal/Cutoff Ratio 0.05 ratio (test code = Hepatitis C Ab Signal/Cutoff Ratio) [facility]2019-07-08 07:36:00 Test Item Value Reference Range Interpretation Comments Rapid Troponin I (test 0.66 See_Comment [Aut omated message] The code = Rapid Troponin system which generated I) this result tra nsmitted reference range : <=0.045. The reference r alba was not used to int erpret this result as normal/abnormal . [facility] [id number] 07:36:00 Test Item Value Reference Range Interpretation Comments IL-Eih-D-Type Natriuretic Peptide (test 96126 code = UP-Dcg-W-Type Natriuretic Peptide) [facility]
[2021-12-07 09:11] LABS: Absolute Lymphocytes (CBC) 0.7 K/uL (0.7-4.9); Hematocrit 27.9 % (36.0-45.0); Lymphocytes % 19.5 % (15.3-44.8); MCV 95.7 fL (80-100); MPV 7.7 fL (7.6-11.3); Protime INR 1.17; RBC Red Blood Cell Count 2.91 M/uL (3.86-4.86)
[2021-12-07] MEDS ORDERED: FENTANYL CITR 100 MCG/2 ML ONE (09:16)
--- NOTE | 2021-12-07 09:28 | RAD REPORT ---
EXAM DESCRIPTION: Samuel Single View12/07/2021 8:24 am CLINICAL HISTORY: cough COMPARISON: November 2021 FINDINGS: Moderate right pleural effusion without significant change from November 25, 2021. However i t is decreased in size from November 23, 2021 exam. Right basilar opacities probably atelectasis. Left lung appears clear. Heart remains enlarged. Postsurgical changes involve the chest. Pacemaker in place
[2021-12-07 09:34] LABS: ALT/SGPT 26 U/L (12-78); AST/SGOT 29 U/L (15-37); Albumin 3.2 g/dL (3.4-5.0); Alkaline Phosphatase 187 U/L (45-117); BUN Blood Urea Nitrogen 61 mg/dL (7-18); Bicarbonate 22 mmol/L (21-32); Bilirubin Direct 0.3 mg/dL (0-0.2); Bilirubin Total 0.8 mg/dL (0.2-1.0); Glucose Level 175 mg/dL (74-106); Magnesium 2.9 mg/dL (1.8-2.4); Potassium 5.3 mmol/L (3.5-5.1); Protein, Total 9.1 g/dL (6.4-8.2); Sodium Level 133 mmol/L (136-145)
[2021-12-07 09:36] LABS: Troponin High Sensitivity 403.1 pg/mL (<58.9)
[2021-12-07 09:46] LABS: Glomerular Filtration Rate 7 ml/min (=/>90)
[2021-12-07 09:47] LABS: NT PRO-BNP > 175000 pg/mL (<125)
--- NOTE | 2021-12-07 10:20 | EDPHYS ---
Physician Documentation [facility] Name: Qiana Valdez Age: 66 yrs Sex: Female : 1955 Arrival Date: 12/07/2021 Time: 08:04 Bed 14 Private MD: ED Physician Rory Connors HPI: 12/07 08:00 This 66 yrs old Female presents to ER via EMS with complaints of palpitations. 7 08:00 The patient presents with a history of heart racing. Context: The symptoms occur at [facility] rest. Onset: The symptoms/episode began/occurred at 06:00, and improved just prior to arrival. Associated signs and symptoms: Pertinent positives: chest pain, SOB, Pertinent negatives: cough, nausea, syncope, vomiting. Patient woke up at 6 AM experiencing palpitations. EMS arrived on scene and stated that her heart rate was 160 sinus tachycardia. They report that once her pacemaker kicked in, her heart rate went between 65-80. Reports that she just had the pacemaker put in in June. The patient reports that when she arrived to the ER her palpitations stopped, but now she is experiencing some mild chest pain and shortness of breath. History of hypertension, diabetes, and ESRD. Reports that she gets dialysis Tuesday, Tuesday, and Tuesday. She is due to get dialysis today at 11 AM.. Historical: - Allergies: 08:06 No Known Allergies; ll1 - PMHx: 08:06 DIALYSIS MWF; ESRD; Diabetes - IDDM; Chronic ischemic heart disease; GERD; ll1 hyperparathyroidism; Hypertension; IRON DEFICIENCY ANEMIA; Myocardial infarction; Pacemaker; High Cholesterol; - PSHx: 08:06 Coronary artery bypass graft; ll1 - Immunization history:: Client reports receiving the 2nd dose of the Covid vaccine. - Social history:: Smoking status: Patient denies any tobacco usage or history of. ROS: 08:00 Constitutional: Negative for fever, chills, and weight loss, Eyes: Negative for injury, jh7 pain, redness, and discharge, Neck: Negative for injury, pain, and swelling, Abdomen/GI: Negative for abdominal pain, nausea, vomiting, diarrhea, and constipation, Back: Negative for injury and pain, MS/Extremity: Negative for injury and deformity, Skin: Negative for injury, rash, and discoloration, Neuro: Negative for headache, weakness, numbness, tingling, and seizure. 08:00 Cardiovascular: Positive for chest pain, palpitations, Negative for edema. 08:00 Respiratory: Positive for shortness of breath, Negative for cough, wheezing. 08:00 All other systems are negative. Exam: 08:00 ECG was reviewed by the Attending Physician. [facility] 08:24 Eyes: Pupils equal round and reactive to light, extra-ocular motions intact. Lids and jh7 lashes normal. Conjunctiva and sclera are non-icteric and not injected. Cornea within normal limits. Periorbital areas with no swelling, redness, or edema. Cardiovascular: Regular rate and rhythm with a normal S1 and S2. No gallops, murmurs, or rubs. Normal PMI, no JVD. No pulse deficits. Respiratory: Lungs have equal breath sounds bilaterally, clear to auscultation and percussion. No rales, rhonchi or wheezes noted. No increased work of breathing, no retractions or nasal flaring. Abdomen/GI: Soft, non-tender, with normal bowel sounds. No distension or tympany. No guarding or rebound. No evidence of tenderness throughout. 08:24 Back: No spinal tenderness. No costovertebral tenderness. Full range of motion. MS/ Extremity: Pulses equal, no cyanosis. Neurovascular intact. Full, normal range of motion. Neuro: Awake and alert, GCS 15, oriented to person, place, time, and situation. Motor strength 5/5 in all extremities. Sensory grossly intact. Normal gait. 08:24 Constitutional: The patient appears alert, awake, anxious. 08:24 Skin: Bruising over the lower abdomen where patient received Lovenox injections 2 weeks ago. Vital Signs: 08:06 BP 176 / 79; Pulse 74; Resp 17; Temp 97.5; Pulse Ox 100% on R/A; Weight 61 kg; Height 5 ll1 ft. 3 in. (160.02 cm); Pain 6/10; 09:00 BP 175 / 81; Pulse 75; Resp 18; Pulse Ox 100% on R/A; kr3 10:07 BP 164 / 76; Pulse 76; Resp 18; Pulse Ox 98% on R/A; kr3 10:32 BP 170 / 79; Pulse 75; Resp 17; ll1 08:06 Body Mass Index 23.82 (61.00 kg, 160.02 cm) ll1 MDM: 08:07 Patient medically screened. 7 09:56 ED course: Dr. Mi paged for consult. [facility] 10:30 Differential diagnosis: arrythmia, Acute GA, pleural effusion, pneumonia. Data [facility] reviewed: vital signs, nurses notes, lab test result(s), EKG, radiologic studies, plain films. Data interpreted: global risk management director: rate is 75 beats/min, rhythm is normal sinus rhythm, Interpretation: normal rate, normal rhythm, Pulse oximetry: is 98 %. Interpretation: normal. Counseling: I had a detailed discussion with the patient and/or guardian regarding: the historical points, exam findings, and any diagnostic results supporting the discharge/admit diagnosis, the need for outpatient follow up, a signal tower director, Dialysis, to return to the emergency department if symptoms worsen or persist or if there are any questions or concerns that arise at home. Physician consultation: Papi Mi MD was called at 10:30, was contacted at 10:30, regarding consult, discharges patient from the emergency department. ED course: Spoke to Dr. Mi regarding patient's status. Informed him that the patient's troponin is elevated today, but that it is trending downward from her last visit 2 weeks ago. He agreed that she could be discharged to go to her dialysis appointment at 11 AM. ER precautions were given to the patient if her symptoms return, or she develops any new concerning symptoms. Dr. Mi instructed for the patient to follow-up with him this week in clinic.. 12/07 08:08 Order name: Basic Metabolic Panel; Complete Time: [facility] 12/07 08:08 Order name: CBC with Diff; Complete Time: [facility] 12/07 08:08 Order name: LFT's; Complete Time: [facility] 12/07 08:08 Order name: Magnesium; Complete Time: [facility] 12/07 08:08 Order name: NT PRO-BNP; Complete Time: [facility] 12/07 08:08 Order name: PT-INR; Complete Time: : [facility] 12/07 08:07 Order name: XRAY Chest (1 view); Complete Time: 09:32 [facility] 12/07 08:08 Order name: Troponin HS; Complete Time: [facility] 12/07 08:08 Order name: EKG; Complete Time: 08: [facility] 12/07 08:08 Order name: Cardiac monitoring; Complete Time: 08: [facility] 12/07 08:08 Order name: EKG - Nurse/Tech; Complete Time: 08:10 [facility] 12/07 08:08 Order name: IV Saline Lock; Complete Time: :21 [facility] 12/07 08:08 Order name: Labs collected and sent; Complete Time: : [facility] 12/07 08:08 Order name: O2 Per Protocol; Complete Time: 08: [facility] 12/07 08:08 Order name: O2 Sat Monitoring; Complete Time: 08: [facility] EC:00 Rate is 78 beats/min. Rhythm is regular. QRS [place] is Normal. NM interval is normal at [facility] 124 msec. QRS interval is normal at 100 msec. QT interval is prolonged at 450 msec. T waves are Inverted in leads II, III, aVF, V1, V2, V3. Clinical impression: NSR with incomplete RBBB. Administered Medications: 08:08 CANCELLED (Duplicate Order): Albuterol 2.5 mg Inhalation once [facility] 08:27 Drug: Aspirin Chewable Tablet 324 mg Route: PO; ll1 09:36 Follow up: Response: No adverse reaction 3 09:21 Drug: fentaNYL (PF) 50 mcg Route: IVP; Site: right wrist; kr3 10:30 Follow up: Response: No adverse reaction; Pain is decreased; RASS: Alert and Calm (0) 1 Disposition: 15:42 Co-signature as Attending Physician, Rory Connors MD I agree with the assessment and kdr plan of care. Disposition Summary: 12/07/21 10:20 Discharge Ordered Location: Home [facility] Problem: new [facility] Symptoms: have improved [facility] Condition: Stable [facility] Diagnosis - Palpitations [facility] Followup: [facility] - With: Papi Mi MD - When: 1 - 2 days - Reason: Recheck today's complaints Discharge Instructions: - Discharge Summary Sheet [facility] - Palpitations [facility] Forms: - Medication Reconciliation Form [facility] - Thank You Letter [facility] Signatures: Dispatcher [employer] Rory Polk MD MD kdr Lewis, Lynsay, RN RN [facility] Meeta Connolly FNP [employer] 7 Selina Fuller RN RN kr3 Corrections: (The following items were deleted from the chart) 08:08 08:07 Albuterol 2.5 mg Inhalation once ordered. jh7 jh7
--- NOTE | 2021-12-07 10:20 | ER ---
Nurse's Notes [facility] Name: Qiana Valdez Age: 66 yrs Sex: Female : 1955 Arrival Date: 12/07/2021 Time: 08:04 Bed 14 Private MD: Diagnosis: Palpitations Presentation: 12/07 08:06 Chief complaint: Patient states: Awoke at 6 am with palpitations. CP started upon ll1 arrival. EMS states: HR 160's sinus tach. Pacemaker noted on EKG en route, HR went to 74 after this. Coronavirus screen: Vaccine status: Patient reports receiving the 2nd dose of the covid vaccine. Client denies travel out of the [place] in the last 14 days. covid positive 1 month ago. Ebola Screen: Patient denies travel to an Ebola-affected area in the 21 days before illness onset. Initial Sepsis Screen: Does the patient meet any 2 criteria? No. Patient's initial sepsis screen is negative. Does the patient have a suspected source of infection? No. Patient's initial sepsis screen is negative. Risk Assessment: Do you want to hurt yourself or someone else? Patient reports no desire to harm self or others. Onset of symptoms was December 07, 2021. 08:06 Method Of Arrival: EMS ll1 08:06 Acuity: SIXTO 3 ll1 Triage Assessment: 08:09 General: Appears uncomfortable, Behavior is calm, cooperative, appropriate for age. ll1 Pain: Complains of pain in L chest Pain currently is 6 out of 10 on a pain scale. Quality of pain is described as aching. Neuro: No deficits noted. Cardiovascular: Reports chest pain, fatigue, palpitations, Heart tones S1 S2. Historical: - Allergies: 08:06 No Known Allergies; ll1 - PMHx: 08:06 DIALYSIS MWF; ESRD; Diabetes - IDDM; Chronic ischemic heart disease; GERD; ll1 hyperparathyroidism; Hypertension; IRON DEFICIENCY ANEMIA; Myocardial infarction; Pacemaker; High Cholesterol; - PSHx: 08:06 Coronary artery bypass graft; ll1 - Immunization history:: Client reports receiving the 2nd dose of the Covid vaccine. - Social history:: Smoking status: Patient denies any tobacco usage or history of. Screenin:33 Abuse screen: Denies threats or abuse. Nutritional screening: No deficits noted. ll1 Tuberculosis screening: No symptoms or risk factors identified. Fall Risk IV access (20 points). Total [place]ton Fall Scale indicates No Risk (0-24 pts). Assessment: 08:25 General: Appears distressed, uncomfortable, Behavior is calm, cooperative. kr3 09:15 Reassessment: No changes from previously documented assessment. Patient and/or family ll1 updated on plan of care and expected duration. Pain level reassessed. Patient is alert, oriented x 3, equal unlabored respirations, skin warm/dry/pink. 10:07 Reassessment: No changes from previously documented assessment. Patient and/or family kr3 updated on plan of care and expected duration. Pain level reassessed. 11:00 Reassessment: No changes from previously documented assessment. Patient and/or family ll1 updated on plan of care and expected duration. Pain level reassessed. Patient is alert, oriented x 3, equal unlabored respirations, skin warm/dry/pink. Vital Signs: 08:06 BP 176 / 79; Pulse 74; Resp 17; Temp 97.5; Pulse Ox 100% on R/A; Weight 61 kg; Height 5 ll1 ft. 3 in. (160.02 cm); Pain 6/10; 09:00 BP 175 / 81; Pulse 75; Resp 18; Pulse Ox 100% on R/A; kr3 10:07 BP 164 / 76; Pulse 76; Resp 18; Pulse Ox 98% on R/A; kr3 10:32 BP 170 / 79; Pulse 75; Resp 17; ll1 08:06 Body Mass Index 23.82 (61.00 kg, 160.02 cm) ll1 ED Course: 08:04 Patient arrived in ED. eb 08:05 Arm band placed on Patient placed in an exam room, on a stretcher. ll1 08:05 Client placed on continuous cardiac and pulse oximetry monitoring. NIBP monitoring ll1 applied. linux engineer on. 08:07 Meeta Connolly FNP is PHCP. jh7 08:07 Rory Connors MD is Attending Physician. jh7 08:07 Selina Fuller, SUNITA is Primary Nurse. kr3 08:09 Triage completed. ll1 08:18 EKG done, by ED staff, reviewed by Rory Connors MD. ll1 08:25 Bed in low position. Call light in reach. Side rails up X 1. ll1 08:26 XRAY Chest (1 view) In Process Unspecified. EDMS 08:30 Missed attempt(s): 22 gauge in left antecubital area. kr3 08:41 Missed attempt(s): 22 gauge in left hand. Bleeding controlled, band aid applied, ll1 catheter tip intact. 09:02 Initial lab(s) drawn, by fl, sent to lab. Inserted saline lock: 22 gauge in left wrist, jl7 using aseptic technique. Blood collected. 10:19 Papi Mi MD is Referral Physician. 7 10:33 No provider procedures requiring assistance completed. IV discontinued, intact, ll1 bleeding controlled, No redness/swelling at site. Pressure dressing applied. Administered Medications: 08:08 CANCELLED (Duplicate Order): Albuterol 2.5 mg Inhalation once jh7 08:27 Drug: Aspirin Chewable Tablet 324 mg Route: PO; ll1 09:36 Follow up: Response: No adverse reaction kr3 09:21 Drug: fentaNYL (PF) 50 mcg Route: IVP; Site: right wrist; kr3 10:30 Follow up: Response: No adverse reaction; Pain is decreased; RASS: Alert and Calm (0) ll1 Medication: 11:32 VIS not applicable for this client. ll1 Outcome: 10:20 Discharge ordered by . 7 10:33 Patient left the ED. ll1 10:33 Discharged to home ambulatory. 1 10:33 Condition: stable 10:33 Discharge instructions given to patient, Instructed on discharge instructions, follow up and referral plans. Demonstrated understanding of instructions, follow-up care. Signatures: Dispatcher [employer] EDAL Mary Watson RN RN jl7 Melissa Truong Lynsay, RN RN ll1 Meeta Connolly, SAMPLE PREP TECHNICIAN SAMPLE PREP TECHNICIAN 7 Selina Fuller RN RN kr3
[2021-12-07 10:59] VITALS: TEMP 97.5
[2021-12-07 11:19] VITALS: O2SAT 98
[2021-12-07 11:27] VITALS: BP 170/79
--- NOTE | 2021-12-08 14:33 | EKG ---
Test Date: 2021-12-07 Test Time: 08:11:55 Manager Drilling: ALINA MEASUREMENT RESULTS: Intervals: Rate: 78 VT: 124 QRSD: 100 QT: 450 QTc: 513 [place]: P: 81 VT: 124 QRS: 21 T: -63 INTERPRETIVE STATEMENTS: Normal sinus rhythm Incomplete right bundle branch block ST & T wave abnormality, consider inferior ischemia ST & T wave abnormality, consider anterior ischemia Prolonged QT Abnormal ECG Compared to ECG 11/23/2021 12:51:06 No significant changes Electronically Signed On 12-08-21 14:30:44 CDT by Bradley Santamaria
== END 2021-12-07 10:33 | disposition home or self-care (01) ==
LOC: ER 08:01
DX: R00.2 Palpitations (principal); E11.22 Type 2 diabetes mellitus with diabetic chronic kidney disease; I13.11 Hypertensive heart and chronic kidney disease without heart failure, with stage 5 chronic kidney disease, or end stage renal disease; N18.6 End stage renal disease; Z99.2 Dependence on renal dialysis; Z95.1 Presence of aortocoronary bypass graft; Z95.0 Presence of cardiac pacemaker
CPT/HCPCS: 93005; 85025; 80048; 36415; 83735; 85610; 80076; 84484; 83880; 71045; 96374; 99284; J3010

== ENCOUNTER 2021-12-11 12:20 | Observation (INO) | payer OTHER ==
--- OUTSIDE RECORDS SUMMARY | 2021-12-11 13:05 | XMS REPORT | Continuity of Care Document ---
:1955 Author Organization [facility] t Address [address] [place] [address] Care Team Providers Name Role Phone Fracisco Hayden MD Primary Care Physician ANGELA LOCO Attending Clinician Unavail able FRACISCO HAYDEN Attending Clinician Unavailable Fracisco Hayden MD Attending Clinician ROGER ARAUJO Attending Clinician Unavailable ROGER ARAUJO Attending Clinician Unavailable Doctor Unassigned, [place] Attending Clinician Unavailable Alfredo RTUJILLO, Brenda Attending Clinician Niki Pool RN Attending Clinician Unavailable NADYA MENDIOLA Attending Clinician Unavailable Kip TRUJILLO, Rony Attending Clinician Jameson Kuo MD Attending Clinician Kanwal Traore MD Attending Clinician Samia TRUJILLO, Mary Kate Christine Attending Clinician Ladarius Jc MD, Clary Resendiz Attending Clinici an Luh Cosby MD Attending Clinician Logan Russo MD Attending Clinician RAFAELALOGAN Attending Clinician Unavailable Beronica TRUJILLO, Angela Torres Attending Clinician [phone] Mitchel TRUJILLO, Nicola Thomas Attending Clinician Ju TRUJILLO, Krzysztof Biggs Attending Clinician Marissa TRUJILLO, Fadia Smith Attending Clinician Max TRUJILLO, Asad Whitman Attending Clinician [phone] Nikolay TRUJILLO, Vahid Mai Attending Clinician Ellie TRUJILLO, Sade Sandoval Attending Clinician Robert Allen Attending Clinician Unavailable Donte TRUJILLO, Mili Attending Clinician Dina Hudson Attending Clinician Unavailable Donald DORSEY, Rakan Damon Attending Clinician Unavailable Dangelo Ibrahim DO Attending [...] Date Expiration Date S justice [employer]ICARE [id number] 2020 00:00:00 MEDICAID OF [place] [id number] 2019 00:00:00 Problems Condition Condition Condition Status Onset Resolution Last Treating Co mments Source Name Details Category Date Date Treatment Clinician Date S/P MVR S/P MVR Disease Active Univers (mitral (mitral 6-28 ity of valve valve 00:00: [place] repair) repair) 00 Medical Branch S/P TVR S/P TVR Disease Active Univers (tricuspid (tricuspid 6-28 it y of valve valve 00:00: [place] repair) repair) 00 Medical Branch Endocardit Endocardit Disease Active U nivers is and is and 6 ity of heart heart 00:00: [place] valve valve 00 Medical disorders disorders Bran ch in in diseases diseases classified classified elsewhere elsewhere Insomnia Insomnia Disease Active Unive rs due to due to 09-04 ity of other other 00:00: [place] mental mental 00 Medical disorder disorder Branch Decreased Decreased Disease Active Uni vers activities activities 6-03 it y of of daily of daily 00:00: [place] living living 00 Medical (ADL) (ADL) Branch Dyslipidem Dyslipidem Disease Active U nivers ia ia 6-03 ity of 00:00: [place] [facility] Decreased Decreased Disease Active Uni vers appetite appetite 6- ity of 00:00: [place] [facility] Seizure Seizure Disease Active Univers 6-03 ity of 00:00: [place] 00 Medical Branch 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it y 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:00: [facility] s major major 00 Medical depressive depressive Br anch disorder, disorder, without without psychotic psychotic features features Generalize Generalize Disease Active U nivers d anxiety d anxiety 6- ity of disorder disorder 00:00: [place] [facility] Panic Panic Disease Active Univers attacks attacks 6- ity of 00:00: [place] [facility] Encounter Encounter Disease Active Uni vers to to 5-27 ity of establish establish 00:00: [facility] care care 00 Medical Branch Hepatic Hepatic Disease Active Univers cirrhosis, cirrhosis, 5-27 it y of unspecifie unspecifie [place] hepatic 00 Medi yoel cirrhosis cirrhosis Bran ch type, type, unspecifie unspecifie d whether d whether ascites ascites present present E44.1 Mild E44.1 Mild Disease Active U nivers protein-ca protein-ca 4-05 it y of sadi sadi 00:00: [place] malnutriti malnutriti 00 Me dical on on Branch Hematochez Hematochez Disease Active U nivers ia ia 4-04 ity of 00:00: [place] [facility] Moderate Moderate Disease [facility] tricuspid tricuspid 3[facility]17 [facility] regurgitat regurgitat 00:00: Me dical ion S/P ion S/P 00 Center Tricuspid Tricuspid valve valve repair repair (Drs. Russo (Drs. Russo and Jose Angel Parisi 06/18/2021 06/18/2021 ) ) S/P CABG [...] 3-17 [facility] post-op post-op [facility]: [facility] 00 Center Acute Acute Disease Active [facility] blood loss blood loss 3-17 [facility] anemia anemia 00:00: Medical 00 Center Acute Acute Disease Active [facility] postoperat postoperat 3-17 [facility] cristela pain cristela pain 00:00: Medica l 00 Center MV MV Disease Active [facility] Endocardit Endocardit 3-17 [facility] k[facility] is is 00:00: Medical 00 [place] Acute Acute Disease Active [facility] encephalop [...] [facility] MV Repair MV Repair 3 [facility] s & TV & TV 00:00: Medical Repair Repair 00 Center (Russo) (Russo) Pulmonary Pulmonary Disease Active Uni vers hypertensi hypertensi 2-13 it y of on on 00:00: [place] 00 Medical Branch Acute on Acute on Disease Active Unive rs chronic chronic 2-13 ity of respirator [place]ator [place] failure 00 [facility] with with Branch hypoxia hypoxia Coronary Coronary Disease Active Unive rs artery artery 2-12 ity of disease disease 00:00: [place] involving involving 00 [facility] nondalton nondalton Branch coronary coronary artery of artery of nondalton nondalton heart with heart with angina angina pectoris pectoris Acute on Acute on Disease Active Unive rs chronic chronic 2-12 ity of diastolic diastolic 00:00: [place] s congestive congestive 00 Me dical heart heart Branch failure failure PAD PAD Disease Active Univers (periphera (periphera 2-12 it y of l artery l artery 00:00: [place] disease) disease) 00 Medica l Branch Primary Primary Disease Active Univers hypertensi hypertensi 2-12 it y of on on 00:00: [place] 00 Medical Branch 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 00:00: [place] with with 00 Medical kidney kidney Branch complicati complicati on, on, without without long-term long-term current current use of use of insulin insulin Hypertensi Hypertensi Disease Active U nivers on, on, 2-11 ity of unspecifie unspecifie [place] type d type 00 Medical Branch 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 00:00: [place] with with 00 Medical diabetic diabetic Branch polyneurop polyneurop athy, athy, without without long-term long-term current current use of use of insulin insulin Cerebrovas Cerebrovas Disease Active U nivers cular cular 2-11 ity of accident accident 00:00: [place] (CVA), (CVA), 00 Medical unspecifie unspecifie Br anch d d mechanism mechanism ESRD on ESRD on Disease Active Univers dialysis dialysis 2-11 ity of 00:00: [place] [facility] Fall on Fall on Disease Active Univers concrete concrete 2-11 ity of 00:00: [place] [facility] Acute pain Acute pain Disease Active U nivers of right of right 2-11 ity of knee knee 00:00: [place] [facility] Dizziness Dizziness Disease Active Uni vers 2-11 ity of 00:00: [place] [facility] Lower leg Lower leg Disease Active Uni vers edema edema 2-11 ity of 00:00: [place] [facility] Abnormal Abnormal Disease Active Unive rs EKG EKG 2-11 ity of 00:00: [place] [facility] Chest Chest Disease Active Univers pressure pressure 2-11 ity of 00:00: [place] [facility] Chest pain Chest pain Disease Active U nivers 2-11 ity of 00:00: [place] [facility] Postmenopa Postmenopa Disease Active U nivers usal usal 4-20 ity of bleeding bleeding 00:00: [place] [facility] Obesity Obesity Disease Active Univers (BMI (BMI 4-20 ity of 30-39.9) 30-39.9) 00:00: [place] [facility] Hematoma Hematoma Disease Active [facility] di [facility]-18 [facility] 00[facility] 00 l Acute Acute Disease Active [facility] gastroente gastroente 3-20 st ritis ritis 00:00: [facility]osp[facility] 00 l Type 2 Type 2 Disease Active [facility] diabetes diabetes 3-27 st mellitus mellitus 00:00: Hospit a with with 00 l diabetic diabetic chronic chronic kidney kidney disease disease Pacemaker Pacemaker Disease Active [facility] Wears Wears Disease Active [facility] glasses glasses [facility] Episode of Episode Problem 2019-02-19 [facility] generalize of 22:28:00 l d weakness generalize He rmann d weakness Problem 02/19/[address] [facility] [place] Hyperkalem Hyperkale Problem 2019-02-19 Memoria ia brett 22:28:00 l Problem Juanito 02/19/2019 [facility] [place] Elevated Elevated Condition 2019-02-19 [facility] brain brain 22:28:00 l natriureti natriureti He rmann c peptide c peptide (BNP) (BNP) level level Condition 02/19/[address] [facility] [facility] [place] Episode of Episode Condition 2019-02-19 [facility] generalize of 22:28:00 l d weakness generalize He rmann d weakness Condition 02/19/[address] [facility] [place] Hyperkalem Hyperkale Condition 2019-02-19 Memoria ia brett 22:28:00 l Condition [place] 02/19/2019 [facility] [place] Hypertensi Hypertens Condition 2019-02-19 [facility] on with ion with 22:28:00 l goal to be goal to be He rmann determined determined Condition 02/19/2019 [facility] [place] Acute Acute Condition 2019-02-19 Me moria respirator respirator 22:28:00 l y disease y disease Herm ivelisse Condition 02/19/2019 [facility] [place] End-stage End-stage Condition 2019-02-19 [facility] renal renal 22:28:00 l disease on disease on He rmann hemodialys hemodialys is is Condition 02/19/2019 [facility] [place] Type 2 Type 2 Condition 2019-02-19 Me moria diabetes diabetes 22:28:00 l mellitus mellitus Freddy n Condition 02/19/2019 [facility] [place] End-stage End-stage Problem 2019-02-19 [facility] renal renal 22:28:00 l disease on disease on He rmann hemodialys hemodialys is is Problem 9 [facility] [place] Upper Upper Problem 2019-02-19 Memor ia respirator respirator 22:28:00 l y y Juanito infection infection Problem 02/19/[address] [facility] [place] Elevated Elevated Problem 2019-02-19 [facility]oria troponin troponin 22:28:00 l level level Juanito Problem 02/19/2019 [facility] [place] ESRD (end ESRD (end Disease Active [facility] stage stage [facility] renal renal Medical disease) disease) Center on on dialysis dialysis (HCC), on (HCC), on dialysis dialysis via RUE via RUE AVF AVF Allergies, Adverse Reactions, Alerts Allergy Allergy Status Severity Reaction(s) Onset Inactive Treating Comm ents Source Name Type Date Date Clinician Heparin Propensi Active "won't Methodi ty to [address] adverse 00:00: bleeding" Hospit a reaction 00 l s to drug NO KNOWN Drug Active Univers ALLERGIE Class ity of S [facility] NO KNOWN Allergy Active [facility] ALLERGIE S Family History Family Member Diagnosis Comments Start Date Stop Date Source Natural brother [facility] Natural father Diabetes [facility] Natural mother Diabetes [facility] [place] sister [facility] Social History Social Habit Start Date Stop Date Quantity Comments Source History [facility] Alcohol Std Drinks History [facility] Alcohol Binge History [facility] Alcohol Comment Exposure to 2021-09-19 2021-09-29 Not sure [facility]-CoV2 00:00:00 14:42:00 [facility] (event) [place] Tobacco use and 2020-07-24 2020-07-[address] [facility] exposure 00:00:00 00:00:00 [facility] Social History 2019-02-19 2019-02-19 [facility] 22:28:00 22:28:00 Alcohol intake 2018-10-27 2018-10-27 [facility] 00:00:00 00:00:00 non-drinker of alcohol (finding) History [facility] 2018-10-26 2018-10-26 [facility] Frequency 00:00:00 00:00:00 Sex Assigned At [address] [facility] 00:00:00 00:[facility]:00 [facility] Smoking Status Start Date Stop Date Source Unknown if ever smoked [facility] Never smoked tobacco [facility] Medications Ordered Filled Start Stop Current Ordering Indication Dosage Frequency Signature Comments Components Source Medication Medication Date Date Medication? Clinician (SIG) Name Name atorvastati Yes 40mg Take 40 mg Univers n 40 mg 6-28 by mouth ity of tablet 15:14: at [place] 02 bedtime. Medical Branch atorvastati 2022-0 Yes 40mg Take 40 mg Univers n 40 mg 6-28 by mouth ity of tablet 15:14: at [place] 02 bedtime. Medical Branch atorvastati 2021-0 Yes 40mg Take 40 mg Univers n 40 mg 6-28 by mouth ity of tablet 15:14: at [place] 02 bedtime. Medical Branch atorvastati 0 Yes 40mg Take 40 mg Univers n 40 mg 6-28 by mouth ity of tablet 15:14: at [place] bedtime. Medical Branch atorvastati 0 Yes 40mg Take 40 mg Univers n 40 mg 6-28 by mouth ity of tablet 15:14: at [place] 02 bedtime. Medical Branch clopidogreL 2021-0 Yes [id number] 75mg Take 1 Univers 75 mg 6-28 tablet by ity of tablet 00:00: mouth [place] 00 daily. Medical Branch clopidogreL 2021-0 Yes [id number] 75mg Take 1 Univers 75 mg 6-28 tablet by ity of tablet 00:00: mouth [place] 00 daily. Medical Branch clopidogreL 2021-0 Yes [id number] 75mg Take 1 Univers 75 mg 6-28 tablet by ity of tablet 00:00: mouth [place] 00 daily. Medical Branch clopidogreL 2021-0 Yes [id number] 75mg Take 1 Univers 75 mg 6-28 tablet by ity of tablet 00:00: mouth [place] 00 daily. Medical Branch clopidogreL 2021-0 Yes [id number] 75mg Take 1 Univers 75 mg 6-28 tablet by ity of tablet 00:00: mouth [place] 00 daily. Medical Branch CARVEDILOL 2021-0 Yes 12.5mg Take 12.5 Univers ORAL 6-03 mg by ity of 10:47: mouth 2 [place] 33 (two) Medical times Branch daily. NIFEdipine 2021-0 Yes 10mg Take 10 mg U nivers 10 mg 6-03 by mouth 3 ity of capsule 10:47: (three) [place] 33 times Medical daily. Branch levETIRAcet 2021-0 Yes 500mg Take 500 U nivers am (KEPPRA) 6-03 mg by ity of 500 mg 10:47: mouth at [place] tablet 33 bedtime. Medical Branch levETIRAcet 2021-0 Yes 250mg Take 250 U nivers am (KEPPRA) 6-03 mg by ity of 250 mg 10:47: mouth [place] tablet 33 every Medical Tuesday, Branch Tuesday and Tuesday. After dialysis CARVEDILOL 2021-0 Yes 12.5mg Take 12.5 Univers ORAL 6-03 mg by ity of 10:47: mouth 2 [place] 33 (two) Medical times Branch daily. NIFEdipine 2021-0 Yes 10mg Take 10 mg U nivers 10 mg 6-03 by mouth 3 ity of capsule 10:47: (three) [place] 33 times Medical daily. Branch levETIRAcet 2021-0 Yes 500mg Take 500 U nivers am (KEPPRA) 6-03 mg by ity of 500 mg 10:47: mouth at [place] tablet 33 bedtime. Medical Branch levETIRAcet 2021-0 Yes 250mg Take 250 U nivers am (KEPPRA) 6-03 mg by ity of 250 mg 10:47: mouth [place] tablet 33 every Medical Tuesday, Branch Tuesday and Tuesday. After dialysis CARVEDILOL 2021-0 Yes 12.5mg Take 12.5 Univers ORAL 6-03 mg by ity of 10:47: mouth 2 [place] 33 (two) Medical times [place] daily. NIFEdipine 2021-0 Yes 10mg Take 10 mg U nivers 10 mg 6-03 by mouth 3 ity of capsule 10:47: (three) [place] 33 times Medical daily. Branch levETIRAcet 0 Yes 500mg Take 500 U nivers am (KEPPRA) 6-03 mg by ity of 500 mg 10:47: mouth at [place] tablet 33 bedtime. Medical Branch levETIRAcet 2021-0 Yes 250mg Take 250 U nivers am (KEPPRA) 6-03 mg by ity of 250 mg 10:47: mouth [place] tablet 33 every Medical Tuesday, Branch Tuesday and Tuesday. After dialysis CARVEDILOL 2021-0 Yes 12.5mg Take 12.5 Univers ORAL 6-03 mg by ity of 10:47: mouth 2 [place] 33 (two) Medical times [place] daily. NIFEdipine 2-0 Yes 10mg Take 10 mg U nivers 10 mg 6-03 by mouth 3 ity of capsule 10:47: (three) [place] 33 times Medical daily. Branch levETIRAcet 2021-0 Yes 500mg Take 500 U nivers am (KEPPRA) 6-03 mg by ity of 500 mg 10:47: mouth at [place] tablet 33 bedtime. Medical Branch levETIRAcet Yes 250mg Take 250 U nivers am (KEPPRA) 6-03 mg by ity of 250 mg 10:47: mouth [place] tablet 33 every Medical Tuesday, Branch Tuesday and Tuesday. After dialysis CARVEDILOL Yes 12.5mg Take 12.5 Univers ORAL [...] Tuesday and Tuesday. After dialysis mirtazapine Yes [id number] 15mg Take 1 Univers (REMERON) 6-03 tablet by ity o f 15 mg 00:00: mouth at [place] tablet 00 bedtime. Medical Branch traZODone Yes [id number] 50mg Take 1 Un kecia 50 mg 6-03 tablet by ity of tablet 00:00: mouth at [place] 00 bedtime. Medical Branch mirtazapine Yes [id number] 15mg Take 1 Univers (REMERON) 6-03 tablet by ity o f 15 mg 00:00: mouth at [place] tablet 00 bedtime. Medical Branch traZODone 0 Yes [id number] 50mg Take 1 Un kecia 50 mg 6-03 tablet by ity of tablet 00:00: mouth at [place] 00 bedtime. Medical Branch mirtazapine Yes [id number] 15mg Take 1 Univers (REMERON) 6-03 tablet by ity o f 15 mg 00:00: mouth at [place] tablet 00 bedtime. Medical Branch traZODone 2021-0 Yes [id number] 50mg Take 1 Un kecia 50 mg 6-03 tablet by ity of tablet 00:00: mouth at [place] [address] bedtime. Medical Branch mirtazapine 2-0 Yes [id number] 15mg Take 1 Univers (REMERON) 6-03 tablet by ity o f 15 mg 00:00: mouth at [place] tablet 00 bedtime. Medical Branch traZODone 2-0 Yes [id number] 50mg Take 1 Un kecia 50 mg 6-03 tablet by ity of tablet 00:00: mouth at [place] 00 bedtime. Medical Branch mirtazapine 2-0 Yes [id number] 15mg Take 1 Univers (REMERON) 6-03 tablet by ity o f 15 mg 00:00: mouth at [place] tablet 00 bedtime. Medical Branch traZODone 2-0 Yes [id number] 50mg Take 1 Un kecia 50 mg 6-03 tablet by ity of tablet 00:00: mouth at [place] [address] bedtime. Medical Branch amoxicillin 2-0 Yes 500mg Take 500 U nivers 500 mg 5-24 mg by ity of capsule 00:00: mouth. [place] [address] Medical Branch amoxicillin 2-0 Yes 500mg Take 500 U nivers 500 mg 5-24 mg by ity of capsule 00:00: mouth. [place] [address] Medical Branch amoxicillin 2-0 Yes 500mg Take 500 U nivers 500 mg 5-24 mg by ity of capsule 00:00: mouth. [place] [address] Medical Branch amoxicillin 2-0 Yes 500mg Take 500 U nivers 500 mg 5-24 mg by ity of capsule 00:00: mouth. [place] [address] Medical Branch amoxicillin 2-0 Yes 500mg Take 500 U nivers 500 mg 5-24 mg by ity of capsule 00:00: mouth. [place] [address] Medical Branch hydrALAZINE 2-0 Yes 50mg Take 50 mg Univers 50 mg 4-08 by mouth. ity of tablet 00:00: [place] [facility] hydrALAZINE 2-0 Yes 50mg Take 50 mg Univers 50 mg 4-08 by mouth. ity of tablet 00:00: [place] [facility] Branch hydrALAZINE 2-0 Yes 50mg Take 50 mg Univers 50 mg 4-08 by mouth. ity of tablet 00:00: [place] Medical Branch hydrALAZINE 2022-0 Yes 50mg Take 50 mg Univers 50 mg 408 by mouth. ity of tablet 00:00: [place] [facility] Branch hydrALAZINE Yes 50mg Take 50 mg Univers 50 mg 08 by mouth. ity of tablet 00:00: [address] Branch levETIRAcet 2021- No 250mg Take 1 [...] minerals 14:35: mouth Medical tablet 35 daily. [place] sucroferric Yes 500mg Q.[id number] Take [address] oxyhydroxid 4-02 [id number] mg by L ukes e 500 mg 14:35: 3D mouth 3 Medica l Chew 35 (three) Center times daily. multivitami Yes 1{tbl} QD Take [address] n with 4-02 tablet by [facility] minerals 14:35: mouth Medical tablet 35 daily. Center sucroferric Yes 500mg Q.[id number] Take [address] oxyhydroxid 4-02 [id number] mg by L ukes e 500 mg 14:35: 3D mouth 3 Medica l Chew 35 (three) Center times daily. multivitami Yes 1{tbl} QD Take [address] n with 4-02 tablet by [facility] minerals 14:35: mouth Medical tablet 35 daily. Center sucroferric Yes 500mg Q.[id number] Take [address] oxyhydroxid 4-02 [id number] mg by L ukes e 500 mg 14:35: 3D mouth 3 Medica l Chew 35 (three) Center times daily. multivitami Yes 1{tbl} QD Take [address] n with 4-02 tablet by [facility] minerals 14:35: mouth Medical tablet 35 daily. Center sucroferric Yes 500mg Q.[id number] Take [address] oxyhydroxid 4-02 [id number] mg by L ukes e 500 mg 14:35: 3D mouth 3 Medica l Chew 35 (three) Center times daily. multivitami Yes 1{tbl} QD Take [address] n with 4-02 tablet by [facility] minerals 14:35: mouth Medical tablet 35 daily. Center sucroferric Yes 500mg Q.[id number] Take [address] oxyhydroxid 4-02 [id number] mg by L ukes e 500 mg [...] 24 hr 35 :00 Center tablet clopidogreL 75mg QD Take [address] (PLAVIX) 75 07-04 by mouth Ned es mg tablet 11:07: 00:00 daily. Medic al 35 :00 [place] NIFEdipine 60mg QD Take [address] (PROCARDIA- 07-04 by mouth Ned es XL) 60 MG 11:07: 00:00 daily. Medic al (OSM) 24 hr 35 :00 Center tablet hydrALAZINE 50mg Q.[id number] Take [address] (APRESOLINE 07-04 [id number] by mouth 3 [facility] ) 50 MG 11:07: 00:00 3D (three) Medica l tablet 35 :00 times Center daily. lisinopriL 5mg QD Take [address] (PRINIVIL,Z 07-04 by mouth Ned es ESTRIL) 5 11:07: 00:00 daily. Medic al MG tablet 35 :00 Center aspirin 81 81mg QD Take [address] MG EC 07-04 by mouth [facility] tablet 11:07: 00:00 daily. Medical 35 :00 Center carvediloL No 12.5mg Take 12.[address] (COREG) 07-04 04-02 mg by [facility] 12.5 MG 11:07: [...] 35 :00 Center tablet hydrALAZINE No 50mg Q.[id number] Take [address] (APRESOLINE 07-04 [id number] by mouth 3 [facility] ) 50 MG [...] 35 :00 Center tablet hydrALAZINE No 50mg Q.[id number] Take [address] (APRESOLINE 07-04 [id number] by mouth 3 [facility] ) 50 MG 11:07: 00:00 3D (three) Medica l tablet 35 :00 times Center daily. lisinopriL 5mg QD Take 5 mg C HI [...] daily. Medical tablet 35 :00 Center isosorbide 2022-0 2022- No 30mg QD Take 30 mg [facility] [...] 35 :00 Center tablet hydrALAZINE No 50mg Q.[id number] Take [address] (APRESOLINE 07-04 [id number] by mouth 3 [facility] ) 50 MG 11:07: 00:00 3D (three) Medica l tablet 35 :00 times Center daily. lisinopriL No 5mg QD Take [address] (PRINIVIL,Z 07-04 by mouth Ned es ESTRIL) 5 11:07: 00:00 daily. Medic al MG tablet 35 :00 [place] aspirin 81 81mg QD Take [address] MG EC 07-04 by mouth [facility] tablet 11:07: 00:00 daily. Medical 35 :00 [place] carvediloL No 12.5mg Take 12.[address] [...] :00 Center tablet hydrALAZINE 2021- No 50mg Q.[id number] Take [address] (APRESOLINE 07-04 [id number] by mouth 3 [facility] ) 50 MG [...] % (NS) 100 mL (V2B) IVPB cefTRIAXone 2021-0 Yes 2g QD Inject [address] (ROCEPHIN) 4-02 intravenou Ned es 2 g in 00:00: sly daily. Medic al sodium 00 Center chloride 0.9 % (NS) 100 mL (V2B) IVPB cefTRIAXone 2021-0 Yes 2g QD Inject [address] (ROCEPHIN) 4-02 intravenou Ned es 2 g in 00:00: sly daily. Medic al sodium 00 Center chloride 0.9 % (NS) 100 mL (V2B) IVPB cefTRIAXone 2-0 Yes 2g QD Inject [address] (ROCEPHIN) 4-02 intravenou Ned es 2 g in 00:00: sly daily. Medic al sodium 00 Center chloride 0.9 % (NS) 100 mL (V2B) IVPB cefTRIAXone 2-0 Yes 2g QD Inject 2 g [facility] [...] (two) times daily for 60 days. hydrALAZINE No 10mg Take [address] (APRESOLINE 07-04 tablet (10 L ukes ) 10 MG 00:00: 23:59 mg total) Medi yoel tablet 00 :00 by mouth Center every 8 (eight) hours for 60 days. NIFEdipine No 20mg Take [address] (PROCARDIA) 07-04 capsule Luke s 20 MG 00:00: 23:59 (20 mg Medical capsule 00 :00 total) by Center mouth every 8 (eight) hours for 60 days. [place] [address]000U Inject [address] [...] injection (three) times a week at bedtime TUE/TUE/SA T for 60 days. levETIRAcet 2021- No [...] injection (three) times a week at bedtime TUE/ASTRID/ T for 60 days. levETIRAcet 2021- No [...] :00 Center R) 100 unit/mL injection insulin 0 2021- No Use as [facility] regular 07-04 directed. [facility] (HumuLIN 00:00: 00:00 Medical R,NovoLIN 00 :00 Center R) 100 unit/mL injection insulin 0 2021- No Use as [facility] regular 07-04 directed. [facility] (HumuLIN 00:00: 00:00 Medical R,NovoLIN 00 :00 Center R) 100 unit/mL injection insulin 0 2021- No Use as [facility] regular [...] hr 59 Center tablet hydrALAZINE Yes 50mg Q.[id number] Take [address] (APRESOLINE 07-03 [id number] by mouth 3 [facility] ) 50 MG 13:18: 3D (three) Medical tablet 59 times Center daily. multivitami 0 Yes 1{tbl} QD Take [address] n with 4- [facility] 13:18: mouth Medical tablet 59 daily. Center lisinopriL 0 Yes 5mg QD Take [address] [facility] (PRINIVIL,Z 4- by mouth Luke s ESTRIL) 5 13:18: daily. Medica l MG tablet 59 Center sucroferric 0 Yes 500mg Q.[id number] Take [address] [facility] oxyhydroxid 4-01 [id number] mg by L ukes e 500 mg [...] 15 Center tablet hydrALAZINE 0 Yes 50mg Q.[id number] Take [address] [facility] (APRESOLINE 3-30 [id number] [facility] mouth 3 [facility] ) 50 MG [...] tablet 15 Center sucroferric 0 Yes 500mg Q.[id number] Take [address] [facility] [address] oxyhydroxid 3-30 [id number] mg by L ukes e 500 mg 12:54: 3D mouth 3 Medica l Chew 15 (three) Center times daily. atorvastati 0 Yes 40mg QD Take [address] [facility] n (LIPITOR) 3-30 by mouth Luke s 40 MG 12:54: daily. Medical tablet 15 Center isosorbide 2022-0 Yes 30mg QD Take 30 mg C [...] 15 Center tablet hydrALAZINE 0 Yes 50mg Q.19471719 Take [address] [facility] (APRESOLINE 3-30 [id number] by mouth 3 [facility] ) 50 MG [...] MG tablet 15 Center sucroferric Yes 500mg Q.88978204 Take [address] [facility] oxyhydroxid 3-30 [id number] mg by L ukes e 500 mg [...] 18 Center tablet hydrALAZINE 0 Yes 50mg Q.06480660 Take [address] [facility] (APRESOLINE 3-30 [id number] by mouth 3 [facility] ) 50 MG 08:40: 3D (three) Medical tablet 18 times Center daily. multivitami 0 Yes 1{tbl} QD Take [address] [facility] [address] [facility] with 3-30 tablet by [facility] 08:40: mouth Medical tablet 18 daily. [place] lisinopriL 0 Yes 5mg QD Take [address] [facility] [address] [facility] (PRINIVIL,Z 3-30 by mouth Luke s ESTRIL) 5 08:40: daily. Medica l MG tablet 18 Center sucroferric Yes 500mg Q.54322558 Take [address] [facility] [address] oxyhydroxid 3-30 [id number] mg by L ukes e 500 mg 08:40: 3D mouth 3 Medica l Chew 18 (three) Center times daily. atorvastati Yes 40mg QD Take [address] [facility] n (LIPITOR) 3-28 by mouth Luke s 40 MG 14:25: daily. Medical tablet 01 Center isosorbide Yes 30mg QD Take [address] mononitrate 3-28 by mouth Luke s (IMDUR) 30 14:25: daily. Medic al MG 24 hr 01 Center tablet clopidogreL 0 Yes 75mg QD Take [address] [facility] (PLAVIX) 75 3-28 by mouth Luke s mg tablet 14:25: daily. Medica l 01 Center NIFEdipine Yes 60mg QD Take [address] [facility] (PROCARDIA- 3-28 by mouth Luke s XL) 60 MG 14:25: daily. Medica l (OSM) 24 hr 01 Center tablet hydrALAZINE 0 Yes 50mg Q.50710027 Take [address] [facility] (APRESOLINE 3-28 [id number] by mouth 3 [facility] ) 50 MG 14:25: 3D (three) Medical tablet 01 times Center daily. multivitami 0 Yes 1{tbl} QD Take [address] [facility] [address] [facility] with 3-28 tablet by [facility] 14:25: mouth Medical tablet 01 daily. [place] lisinopriL Yes 5mg QD Take [address] [facility] [address] [facility] (PRINIVIL,Z 3-28 by mouth Luke s ESTRIL) 5 14:25: daily. Medica l MG tablet Center sucroferric Yes 500mg Q.76878479 Take [address] oxyhydroxid 3-28 [id number] mg by L ukes e 500 mg [...] Take [address] [facility] (PLAVIX) 75 -28 by mouth Luke s mg tablet 09:34: daily. Medica l 22 [place] NIFEdipine Yes 60mg QD Take [address] (PROCARDIA- 3-28 by mouth Luke s XL) 60 MG 09:34: daily. Medica l (OSM) 24 hr 22 Center tablet hydrALAZINE Yes 50mg Q.11512782 Take [address] [facility] (APRESOLINE 3-28 [id number] by mouth 3 [facility] ) 50 MG 09:34: 3D (three) Medical tablet 22 times Center daily. multivitami Yes 1{tbl} QD Take [address] [facility] with 3-28 tablet by [facility] 09:34: mouth Medical tablet 22 daily. [place] lisinopriL Yes 5mg QD Take [address] [facility] [address] [facility] (PRINIVIL,Z 3-28 by mouth Luke s ESTRIL) 5 09:34: daily. Medica l MG tablet 22 Center sucroferric Yes 500mg Q.62439344 Take [address] oxyhydroxid 3-28 [id number] mg by L ukes e 500 mg 09:34: 3D mouth 3 Medica l Chew 22 (three) Center times daily. atorvastati 0 Yes 40mg QD Take [address] [facility] (LIPITOR) 3-25 by mouth Luke s 40 MG 20:31: daily. Medical tablet 49 Center isosorbide 2021-0 Yes 30mg QD Take [address] mononitrate 3-25 by mouth Luke s (IMDUR) 30 20:31: daily. Medic al MG 24 hr 49 Center tablet clopidogreL 2021-0 Yes 75mg QD Take [address] [facility] (PLAVIX) 75 3-25 by mouth Luke s mg tablet 20:31: daily. Medica l 49 Center NIFEdipine 0 Yes 60mg QD Take [address] (PROCARDIA- 3-25 by mouth Luke s XL) 60 MG 20:31: daily. Medica l (OSM) 24 hr 49 Center tablet hydrALAZINE 0 Yes 50mg Q.64128895 Take [address] [facility] (APRESOLINE 3-25 [id number] by mouth 3 [facility] ) 50 MG [...] tablet 49 Center sucroferric 0 Yes 500mg Q.32825574 Take [address] oxyhydroxid 3-25 [id number] mg by L ukes e 500 mg [...] 15 Center tablet hydrALAZINE 0 Yes 50mg Q.83938516 Take [address] [facility] (APRESOLINE 3-20 [id number] by mouth 3 [facility] ) 50 MG 18:09: 3D (three) Medical tablet 15 times Center daily. multivitami 0 Yes 1{tbl} QD Take [address] [facility] with 3-20 tablet by [facility] 18:09: mouth Medical tablet 15 daily. [place] lisinopriL 0 Yes 5mg QD Take [address] [facility] [address] [facility] (PRINIVIL,Z 3-20 by mouth Luke s ESTRIL) 5 18:09: daily. Medica l MG tablet 15 Center sucroferric Yes 500mg Q.98119864 Take [address] oxyhydroxid 3-20 [id number] mg by L [facility]kes e 500 mg 18:09: 3D mouth 3 Medica l Chew 15 (three) Center times daily. atorvastati Yes 40mg QD Take [address] [facility] n (LIPITOR) 3-20 by mouth Luke [facility] 40 MG 18:09: daily. Medical tablet 15 Center isosorbide Yes [...] 15 Center tablet hydrALAZINE 0 Yes 50mg Q.95539427 Take [address] [facility] (APRESOLINE 3-20 [id number] by mouth 3 [facility] ) 50 MG [...] 18:09: daily. Medica l MG tablet 15 [place] sucroferric Yes 500mg Q.22249764 Take [address] oxyhydroxid 3-20 [id number] mg by L ukes e 500 mg 18:09: 3D mouth 3 Medica l Chew 15 (three) Center times daily. atorvastati Yes 40mg QD Take [address] [facility] n (LIPITOR) 3-20 by mouth Luke s 40 MG 18:09: daily. Medical tablet 15 [place] aspirin 81 Yes 81mg QD Take [address] MG EC 3-07 by mouth [facility] 04:45: daily. [address] carvediloL Yes 12.5mg Take 12.[address] (COREG) 3-07 mg by [facility] 12.5 MG 04:45: mouth 2 Medical tablet 04 (two) Center times daily with breakfast and dinner. aspirin 81 0 Yes 81mg QD Take [address] MG EC 3-07 by mouth [facility] 04:45: daily. [address] carvediloL Yes 12.5mg Take 12.[address] [address] (COREG) 3-07 mg by [facility] 12.5 MG 04:45: mouth 2 Medical tablet 04 (two) Center times daily with breakfast and dinner. aspirin 81 0 Yes 81mg QD Take [address] MG EC 3-07 by mouth [facility] 04:45: daily. [address] carvediloL Yes 12.5mg Take 12.[address] (COREG) 3-07 mg by [facility] 12.5 MG 04:45: mouth 2 Medical tablet 04 (two) Center times daily with breakfast and dinner. aspirin 81 0 Yes 81mg QD Take [address] MG EC 3-07 by mouth [facility] 04:45: daily. [address] carvediloL Yes 12.5mg Take 12.[address] (COREG) 3-07 mg by [facility] 12.5 MG 04:45: mouth 2 Medical tablet 04 (two) Center times daily with breakfast and dinner. aspirin 81 0 Yes 81mg QD Take [address] MG EC 3-07 by mouth [facility] 04:45: daily. [address] carvediloL 0 Yes 12.5mg Take 12.[address] (COREG) 3-07 mg by [facility] 12.5 MG 04:45: mouth 2 Medical tablet 04 (two) Center times daily with breakfast and dinner. aspirin 81 2021-0 Yes 81mg QD Take [address] MG EC 3-07 by mouth [facility] 04:45: daily. [address] carvediloL Yes 12.5mg Take 12.[address] (COREG) 3-07 mg by [facility] 12.5 MG 04:45: mouth 2 Medical tablet 04 (two) Center times daily with breakfast and dinner. aspirin 81 0 Yes 81mg QD Take [address] MG EC 3-07 by mouth [facility] 04:45: daily. [address] carvediloL Yes 12.5mg Take 12.[address] [address] (COREG) 3-07 mg by [facility] 12.5 MG 04:45: mouth 2 Medical tablet 04 (two) Center times daily with breakfast and dinner. aspirin 81 2021-0 Yes 81mg QD Take [address] MG EC 3-07 by mouth [facility] 04:45: daily. [address] carvediloL Yes 12.5mg Take 12.[address] [address] (COREG) 3-07 mg by [facility] 12.5 MG 04:45: mouth 2 Medical tablet 04 (two) Center times daily with breakfast and dinner. aspirin 81 2021-0 Yes 81mg QD Take [address] MG EC 3-07 by mouth [facility] 04:45: daily. [address] carvediloL Yes 12.5mg Take 12.[address] (COREG) 3-07 mg by [facility] 12.5 MG 04:45: mouth 2 Medical tablet 04 (two) Center times daily with breakfast and dinner. aspirin 81 2021-0 2021- No [id number] 81mg Take 1 [facility] mg chewable 2-19 -22 tablet by it y of tablet 00:00: 04:59 mouth [place] 00 :00 daily for Medical 30 days. Branch clopidogreL 2021- No [id number] 75mg Take 1 [facility] 75 mg 05-23- tablet by ity of tablet 00:00: 04:59 mouth [place] 00 :00 daily for Medical 30 days. Branch isosorbide 2021- No [id number] 30mg Take 1 [facility] mononitrate 05-23- tablet by it y of 30 mg 24 hr 00:00: 04:59 [place] tablet 00 :00 daily for Medical 30 days. Branch lisinopriL 2021- No [id number] 5mg Take 1 [facility] 5 mg tablet 05-23 tablet by it y of 00:00: 04:59 mouth [place] 00 :00 daily for Medical 30 days. Branch vitamin b 2021- No [id number] 1{tbl} Take 1 [facility] complex-vit 05-23 tablet by it y of [place]er 00:00: 04:59 mouth [place] c-folic 00 :00 daily for Medical acid 0.8 mg 30 days. Bran ch tablet aspirin 81 2021- No [id number] 81mg Take 1 [facility] mg chewable 05-23 tablet by it y of tablet 00:00: 04:59 mouth [place] 00 :00 daily for Medical 30 days. Branch clopidogreL 2021- No [id number] 75mg Take 1 [facility] 75 mg 05-23 tablet by ity of tablet 00:00: 04:59 mouth [place] 00 :00 daily for Medical 30 days. Branch isosorbide 2021- No [id number] 30mg Take 1 [facility] mononitrate 05-23- tablet by it y of 30 mg 24 hr 00:00: 04:59 [place] tablet 00 :00 daily for Medical 30 days. Branch lisinopriL 2021- No [id number] 5mg Take 1 [facility] 5 mg tablet 05-23 tablet by it y of 00:00: 04:59 mouth [place] 00 :00 daily for Medical 30 days. Branch vitamin b 2021- No [id number] 1{tbl} Take 1 [facility] complex-vit -20 06- tablet by it y of [place] 00:00: 04:59 mouth [place] c-folic 00 :00 daily for Medical acid 0.8 mg 30 days. Bran ch tablet aspirin 81 2021- No [id number] 81mg Take 1 [facility] mg chewable 05-23 tablet by it y of tablet 00:00: 04:59 mouth [place] 00 :00 daily for Medical 30 days. Branch clopidogreL 2021- No [id number] 75mg Take 1 [facility] 75 mg 05-23 tablet by ity of tablet 00:00: 04:59 mouth [place] 00 :00 daily for Medical 30 days. Branch isosorbide 2021- No [id number] 30mg Take 1 [facility] mononitrate 05-23 tablet by it y of 30 mg 24 hr 00:00: 04:59 [place] tablet 00 :00 daily for Medical 30 days. Branch lisinopriL 2021- No [id number] 5mg Take 1 [facility] 5 mg tablet 05-23 tablet by it y of 00:00: 04:59 mouth [place] 00 :00 daily for Medical 30 days. Branch vitamin b 2021- No [id number] 1{tbl} Take 1 [facility] complex-vit 05-23 tablet [...] 2021- No Take by Uni vers ORAL -18 - mouth. ity of 17:12: 00:00 [place] 42 :00 Medical Branch aspirin 81 2021- No 81mg Take 81 mg [facility] mg chewable 05-22 by mouth ity of tablet 17:12: 00:00 daily. [place] 42 :00 Medical Branch nitroglycer Yes [id number] .4mg Place 1 Univers in 0.4 mg 2-18 tablet ity of sublingual 00:00: under the [place] tablet 00 tongue Medical every 5 Branch (five) minutes as needed for Chest pain. nitroglycer Yes [id number] .4mg Place 1 [facility] in 0.4 mg 2-18 tablet ity of sublingual 00:00: under the [place] tablet 00 tongue Medical every 5 Branch (five) minutes as needed for Chest pain. nitroglycer Yes [id number] .4mg Place 1 Univers in 0.4 mg 2-18 tablet ity of sublingual 00:00: under the [place] tablet 00 tongue Medical every 5 Branch (five) minutes as needed for Chest pain. atorvastati 2021- No [id number] 40mg Take 1 [facility] n 40 mg 2-18 -21 tablet by ity of tablet 00:00: 04:59 mouth at [place] 00 :00 bedtime Medical for 30 Branch days. carvediloL 2021- No [id number] 6.25mg Take 1 [facility] 6.25 mg 2-18 - tablet by ity of tablet 00:00: 04:59 mouth 2 [place] 00 :00 (two) Medical times Branch daily with meals for 30 days. NIFEdipine 2021- No [id number] 60mg Take 1 Univers ER 60 mg 2-18 - tablet by ity o f tablet 00:00: 04:59 mouth 2 [place] 00 :00 (two) Medical times Branch daily for 30 days. atorvastati 2021- No [id number] 40mg Take 1 [facility] n 40 mg 2-18 -21 tablet by ity of tablet 00:00: 04:59 mouth at [place] 00 :00 bedtime Medical for 30 Branch days. carvediloL 2021- No [id number] 6.25mg Take 1 [facility] 6.25 mg 05-22 tablet by ity of tablet 00:00: 04:59 mouth 2 [place] 00 :00 (two) Medical times [place] daily with meals for 30 days. NIFEdipine 2021- No [id number] 60mg Take 1 [facility] ER 60 mg 05-22 tablet by ity o f tablet 00:00: 04:59 mouth 2 [place] 00 :00 (two) Medical times [place] daily for 30 days. atorvastati 2021- No [id number] 40mg Take 1 [facility] n 40 mg 05-22 tablet by ity of tablet 00:00: 04:59 mouth at [place] 00 :00 bedtime Medical for 30 Branch days. carvediloL 2021- No [id number] 6.25mg Take 1 [facility] 6.25 mg 05-22 tablet by ity of tablet 00:00: 04:59 mouth 2 [place] 00 :00 (two) Medical times [place] daily with meals for 30 days. NIFEdipine 2021- No [id number] 60mg Take 1 Univers ER 60 mg 05-22 tablet by ity o f tablet 00:00: 04:59 mouth 2 [place] 00 :00 (two) [facility] times [place] daily for 30 days. clopidogreL Yes 75mg [...] dose, On Medi yoel tablet 1 Tue tablet 05/20/21 at 1900, Routine isosorbide 0 Yes 30mg 30 mg, Unive rs mononitrate 2-16 Oral, ity of (IMDUR) 24 15:00: DAILY, [place] hr tablet 00 First dose Medi yoel 30 mg on Tue05/20/21 at 0900, Until Discontinu ed, Routine vitamin b 0 Yes [id number] 1{tbl} 1 tablet, Univers complex-vit 2-16 Oral, [...] Until Discontinu ed, Routine atorvastati 0 Yes [id number] 40mg 40 mg, Univers n (LIPITOR) 2-16 Oral, QHS, it y of tablet 40 03:00: First dose [place] mg 00 on [facility] 05/19/21 at Branch 2100, Until Discontinu ed, Routine NIFEdipine 0 Yes [id number] 60mg 60 mg, U nivers ER tablet 2-16 Oral, BID, ity of 60 mg 02:00: First dose [place] 00 (after Medical last Branch modificati on) on Tue05/19/21 at 2000, Until Discontinu ed, Routine lisinopriL 0 Yes [id number] 5mg 5 mg, Un [facility] (PRINIVIL,Z 2-15 Oral, ity of ESTRIL) 20:45: DAILY, [place] tablet 5 mg 00 First dose Me dical on Tue Branch 05/19/21 at 1445, Until Discontinu ed, Routine traMADoL 0 Yes 50mg 50 mg, Univers (ULTRAM) 2-12 Oral, ity of tablet 50 21:59: Q6HPRN, [place] mg 37 Starting Medical on [facility] Branch 05/16/21 at 1559, Until Discontinu ed, Routine, Pain (scale 4-6) aspirin 0 Yes 81mg 81 mg, Univers chewable 2-12 Oral, ity of tablet 81 15:00: DAILY, [place] mg 00 First dose Medical on [facility] Branch 05/16/21 at 0900, Until Discontinu ed, Routine NIFEdipine No 60mg 60 mg, Univ ers ER tablet 05-16 02-15 Oral, ity of 60 mg 15:00: 20:33 DAILY, [place] 00 :49 First dose Medical on [facility] Branch 05/16/21 at 0900, Until Discontinu ed, Routine Sliding Yes Subcutaneo Univ ers Scale 2-12 us, AC, ity of Insulin-Reg 13:30: First dose [place] ular + Fsbg 00 on [facility] Medica l Testing 05/16/21 at Branch 0730, Until Discontinu ed, Routine hydralAZINE Yes 10mg 10 mg, Univ ers (APRESOLINE 2-12 Slow IV ity o f ) injection 05:36: Push, [place] 10 mg 44 Q4HPRN, Medical Starting Branch on 05/15/21 at 2336, Until Discontinu ed, Routine, DBP=>10 [...] 05/15/21 at 1900, Until Discontinu ed, Routine
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 Restricted medication : NEIL THOMAS aspirin 0 2021- No 325mg 325 mg, Unive rs tablet 325 05-1612 Oral, ity of mg 01:00: 01:57 ONCE, 1 [place] 00 :00 dose, On Medical Fri Branch 05/15/21 at 1900, Routine nitroglycer Yes .4mg 0.4 mg, Uni vers in 12 Sublingual ity of (NITROSTAT) 00:57: , Q5MIN Socrates as sublingual 18 PRN, Medical tablet 0.4 Starting Branc h mg on Tue05/15/21 at 1857, Until Discontinu ed, Routine, Chest pain ondansetron 0 Yes 4mg 4 mg, Slow Univers (ZOFRAN 12 IV Push, ity of (PF)) 00:56: Q6HPRN, [place] injection 4 53 Starting Medi yoel mg on Tue Branch 05/15/21 at 1856, Until Discontinu ed, Routine, Nausea and Vomiting (N/V) acetaminoph Yes 650mg 650 mg, Un kecia en 12 Oral, ity of (TYLENOL) 00:56: Q6HPRN, [place] tablet 650 38 Starting Medic al mg on Tue Branch 05/15/21 at 1856, Until Discontinu ed, Routine, Pain (scale 1-3), Temp > 38.5 C ondansetron 2021- No 4mg 4 mg, Slow Univers (ZOFRAN 05-1511 IV Push, ity of (PF)) 23:30: 22:34 ONCE, 1 [place] injection 4 00 :00 dose, On Medi yoel mg Fri Branch 05/15/21 at 1730, MATTHEW morpHINE 2021- No 4mg 4 mg, Slow Un kecia injection 4 05-15 IV Push, ity of mg 23:30: 22:34 ONCE, 1 [place] 00 :00 dose, On Medical Fri Branch 05/15/21 at 1730, STAT iopamidol 2021- No [id number] 100mL 100 mL, Univers (ISOVUE 05-15 Intravenou ity o f 370-500 mL) 22:00: 22:00 s, ONCE, 1 [place] injection 00 :00 dose, On Medica l 100 mL Fri Branch 05/15/21 at 1600, Routine aspirin 81 Yes 81mg QD Take [address] MG EC 5-27 by mouth [facility] tablet 15:07: daily. [address] carvediloL Yes 12.5mg Take 12.[address] [facility] [address] (COREG) 5-27 mg by [facility] 12.5 MG 15:07: mouth 2 Medical tablet 20 (two) Center times daily with breakfast and dinner. aspirin 81 Yes 81mg QD Take [address] MG EC 5-27 by mouth [facility] tablet 15:07: daily. [address] carvediloL Yes 12.5mg Take 12.5 [facility] [...] a ginny Hcl 1-17 l 19:15: Clopidogrel 2018- Yes Memori a Bisulfate 1-17 l 19:15: Pantoprazol 2018- Yes Memori a e 1-17 l 19:15: ergocalcife 2019-0 Yes [id number] Q7D Take Meth ale rol 7-25 50,000 [address] (VITAMIN 15:19: Units by Hospi ta D2) 50,000 42 mouth once l unit a week. capsule multivitami [id number] Yes 1{tbl} QD Take 1 Me thodi n 7-[address] (DAILY-LARON 15:19: mouth Hospi ta ORAL) 42 daily. l doxazosin [id number] Yes 4mg Q.5D Take 4 mg Met [...] hr 42 l tablet ergocalcife 2019-0 Yes [id number] Q7D Take Meth ale rol 7-25 50,000 st (VITAMIN 15:19: Units by Hospi ta D2) 50,000 42 mouth once l unit a week. capsule multivitami [id number] Yes 1{tbl} QD Take 1 Me thodi [...] Hospita tablet 42 l ergocalcife 2019-0 Yes [id number] Q7D Take Meth ale rol 7-25 50,000 [...] ta MG 24 hr 42 l tablet pantoprazol 2019-0 Yes 40mg QD Take 40 mg Methodi e 7-[address] (PROTONIX) 15:19: daily. Hospi ta 40 MG EC 42 l tablet isosorbide 2019-0 Yes 30mg QD Take 30 mg M ethodi mononitrate 7-[address] (IMDUR) 30 15:19: daily. Hospi ta MG 24 hr 42 l tablet ergocalcife 2019-0 Yes [id number] Q7D Take Meth ale rol 7-25 50,000 [...] hr 42 l tablet ergocalcife 2019-0 Yes [id number] Q7D Take Meth ale rol 7-25 50,000 [...] hr 42 l tablet ergocalcife 2019-0 Yes [id number] Q7D Take Meth ale rol 7-25 50,000 st (VITAMIN 15:19: Units by Hospi ta D2) 50,000 42 mouth once l unit a week. capsule multivitami 2019-0 Yes 1{tbl} QD Take 1 Me thodi n 7-[address] (DAILY-LARON 15:19: mouth Hospi ta ORAL) 42 daily. l ergocalcife 2019-0 Yes [id number] Q7D Take Meth ale rol 7-25 50,000 [...] Hospita tablet 42 l ergocalcife 2019-0 Yes [id number] Q7D Take Meth ale rol 7-25 50,000 [...] hr 42 l tablet ergocalcife 2019-0 Yes [id number] Q7D Take Meth ale rol 7-25 50,000 [...] hr 42 l tablet ergocalcife 2019-0 Yes [id number] Q7D Take Meth ale rol 7-25 50,000 [...] hr 42 l tablet ergocalcife 2019-0 Yes [id number] Q7D Take Meth ale rol 7-25 50,000 [...] hr 42 l tablet ergocalcife 2019-0 Yes [id number] Q7D Take Meth ale rol 7-25 50,000 [...] hr 42 l tablet ergocalcife 2019-0 Yes [id number] Q7D Take Meth ale rol 7-25 50,000 [...] hr 42 l tablet ergocalcife 2019-0 Yes [id number] Q7D Take Meth ale rol 7-25 50,000 [...] hr 42 l tablet ergocalcife 2019-0 Yes [id number] Q7D Take Meth ale rol 7-25 50,000 [...] a 25 mg 00 l tablet metoprolol 2018-0 Yes TK 1 T PO [...] Memori a n Calcium 10-10 l 10:23: [place] Lisinopril 2018-0 Yes Memoria 10-10 l 10:23: [place] Doxazosin 2018-0 Yes TWICE Memoria - DAILY l 00:00: [place] Folic 2018-0 Yes DAILY [facility] Acid/Vit B 10-10 l Complex And 00:00: Freddy n C 00 hydrALAZINE 2018-0 Yes 1{tbl} Take 1 Me thodi (APRESOLINE - tablet by st ) 100 MG 00:00: mouth. Hospita tablet 00 l lactulose 2018- Yes Take by Metho di (CEPHULAC) 7-[address] 10 gram 00:00: Hospita packet 00 l lanthanum 2018- Yes Take by Metho di 1,000 mg 7-[address] powder in 00:00: Hospita packet 00 l NIFEdipine 2019-0 Yes 1{tbl} Take 1 Met hodi XL 7-[address] (PROCARDIA 00:00: mouth. Hospi ta XL) 60 MG 00 l 24 hr tablet Hydralazine 2019-0 Yes Q8H Memori a Hcl 7-09 l 00:00: Lactulose 2019-0 Yes DAILY PRN Mem oria 7-09 For l 00:00: Constipati on Lanthanum 2019-0 Yes THREE Memoria Carbonate 7-09 TIMES [...] Immunizations Ordered Filled Immunization Date Status Comments [facility] e Immunization Name Name Influenza High Dose 2021-02-02 Completed Unive rsity of 00:00:00 [facility] Influenza High Dose 2021-02-02 Completed Unive rsity of 00:00:00 [facility] Influenza High Dose 2021-02-02 Completed Unive rsity of 00:00:00 [facility] Influenza High Dose 2021-02-02 Completed Unive rsity of 00:00:00 [facility] Influenza High Dose 2021-02-02 Completed Unive rsity of 00:00:00 [facility] SARS-COV-2 COVID-19 2020-07-30 Completed Unive rsity of PFIZER VACCINE 00:00:00 [facility] SARS-COV-2 COVID-19 2020-07-30 Completed Unive rsity of PFIZER VACCINE 00:00:00 [facility] SARS-COV-2 COVID-19 2020-07-30 Completed Unive rsity of PFIZER VACCINE 00:00:00 [facility] SARS-COV-2 COVID-19 2020-07-30 Completed Unive rsity of PFIZER VACCINE 00:00:00 [facility] SARS-COV-2 COVID-19 2020-07-30 Completed Unive rsity of PFIZER VACCINE 00:00:00 [facility] SARS-COV-2 COVID-19 2020-07-11 Completed Unive rsity of PFIZER VACCINE 00:00:00 [facility] SARS-COV-2 COVID-19 2020-07-11 Completed Unive rsity of PFIZER VACCINE 00:00:00 [facility] SARS-COV-2 COVID-19 2020-07-11 Completed Unive rsity of PFIZER VACCINE 00:00:00 [facility] SARS-COV-2 COVID-19 2020-07-11 Completed Unive rsity of PFIZER VACCINE 00:00:00 [facility] SARS-COV-2 COVID-19 2020-07-11 Completed Unive rsity of PFIZER VACCINE 00:00:00 [facility] PPD (TB) 2018-03-20 Completed University of 00:00:00 [facility] PPD (TB) 2018-03-20 Completed University of 00:00:00 [facility] PPD (TB) 2018-03-20 Completed University of 00:00:00 [facility] PPD (TB) 2018-03-20 Completed University of 00:00:00 [facility] PPD (TB) 2018-03-20 Completed University of 00:00:00 [facility] Influenza Virus 2018-01-20 Completed Universit y of Vaccine - Whole 00:00:00 [facility] Influenza Virus 2018-01-20 Completed Universit y of Vaccine - Whole 00:00:00 [facility] Influenza Virus 2018-01-20 Completed Universit y of Vaccine - Whole 00:00:00 [facility] Influenza Virus 2018-01-20 Completed Universit y of Vaccine - Whole 00:00:00 [facility] Influenza Virus 2018-01-20 Completed Universit y of Vaccine - Whole 00:00:00 [facility] Pneumococcal 2014-08-02 Completed University o f Polysaccharide, 00:00:00 [facility] ical PPSV23 (PNEUMOVAX) Branch Pneumococcal 2014-08-02 Completed University o f Polysaccharide, 00:00:00 [facility] ical PPSV23 (PNEUMOVAX) Branch Pneumococcal 2014-08-02 Completed University o f Polysaccharide, 00:00:00 [facility] ical PPSV23 (PNEUMOVAX) Branch Pneumococcal 2014-08-02 Completed [place] o f Polysaccharide, 00:00:00 [facility] ical PPSV23 (PNEUMOVAX) Branch Pneumococcal 2014-08-02 Completed University o f Polysaccharide, 00:00:00 [facility] PPSV23 (PNEUMOVAX) Branch Vital Signs Vital Name [...] 01:40:00 126 mm[Hg] Univer sity of pressure [facility] Diastolic blood 2021-05-23 01:40:00 46 mm[Hg] Unive rsity of [facility] Heart rate 2021-05-23 01:40:00 62 /min [facility] Body temperature 2021-05-23 01:40:00 35.67 Priya [facility] Respiratory rate 2021-05-23 01:40:00 16 /min [facility] Body weight 2021-05-23 01:40:00 67.3 kg [facility] BMI 2021-05-23 01:40:00 26.28 kg/m2 [facility] Oxygen saturation in 2021-05-22 17:16:00 93 /min [facility] Arterial blood by [facility] Pulse oximetry Branch Body height 2021-05-19 19:34:00 160 cm [facility] Systolic blood 2021-07-04 08:10:00 149 mm[Hg] [facility] Diastolic blood 2021-07-04 08:10:00 65 mm[Hg] [facility] Heart rate 2021-07-04 08:10:00 71 /min [facility] Body temperature 2021-07-04 08:10:00 36.22 Priya [facility] Respiratory rate 2021-07-04 08:10:00 18 /min [facility] Oxygen saturation in 2021-07-04 08:10:00 93 /min [facility] Arterial blood by [facility] Pulse oximetry Systolic blood 2021-07-03 14:23:00 123 mm[Hg] [facility] Diastolic blood 2021-07-03 14:23:00 60 mm[Hg] [facility] Heart rate 2021-07-03 14:23:00 70 /min [facility] Body temperature 2021-07-03 14:23:00 35.94 Priya [facility] Respiratory rate 2021-07-03 14:23:00 18 /min [facility] Oxygen saturation in 2021-07-03 14:23:00 97 /min [facility] Arterial blood by [facility] Pulse oximetry Body weight 2021-07-03 13:00:00 60.4 kg [facility] BMI 2021-07-03 13:00:00 23.59 kg/m2 [facility] Systolic blood 2021-07-03 08:18:00 156 mm[Hg] [facility] Diastolic blood 2021-07-03 08:18:00 67 mm[Hg] [facility] Heart rate 2021-07-03 08:18:00 68 /min [facility] Body temperature 2021-07-03 08:18:00 36.22 Priya [facility] Respiratory rate 2021-07-03 08:18:00 20 /min [facility] Oxygen saturation in 2021-07-03 08:18:00 94 /min [facility] Arterial blood by [facility] Pulse oximetry Heart rate 2021-07-02 10:00:00 72 /min [facility] Systolic blood 2021-07-02 08:00:00 171 mm[Hg] [facility] Diastolic blood 2021-07-02 08:00:00 78 mm[Hg] [facility] Body temperature 2021-07-02 08:00:00 36.56 Priya [facility] Respiratory rate 2021-07-02 08:00:00 20 /min [facility] Oxygen saturation in 2021-07-02 08:00:00 94 /min [facility] Arterial blood by [facility] Pulse oximetry Body weight 2021-07-02 04:21:00 62.37 kg [facility] BMI 2021-07-02 04:21:00 24.36 kg/m2 [facility] Systolic blood 2021-07-01 09:15:00 167 mm[Hg] [facility] Diastolic blood 2021-07-01 09:15:00 71 mm[Hg] [facility] Heart rate 2021-07-01 09:15:00 71 /min [facility] Respiratory rate 2021-07-01 09:15:00 14 /min [facility] Oxygen saturation in 2021-07-01 09:15:00 96 /min [facility] Arterial blood by [facility] Pulse oximetry Body temperature 2021-07-01 09:00:00 36.44 Priya [facility] Systolic blood 2021-06-29 14:24:00 169 mm[Hg] [facility] Diastolic blood 2021-06-29 14:24:00 71 mm[Hg] [facility] Heart rate 2021-06-29 14:24:00 70 /min [facility] Body temperature 2021-06-29 14:24:00 36.67 Priya [facility] Respiratory rate 2021-06-29 14:24:00 20 /min [facility] Oxygen saturation in 2021-06-29 14:24:00 98 /min [facility] Arterial blood by [facility] Pulse oximetry Systolic blood 2021-06-29 07:46:00 133 mm[Hg] [facility] Diastolic blood 2021-06-29 07:46:00 63 mm[Hg] [facility] Heart rate 2021-06-29 07:46:00 70 /min [facility] Body temperature 2021-06-29 07:46:00 36.44 Priya [facility] Respiratory rate 2021-06-29 07:46:00 20 /min [facility] Oxygen saturation in 2021-06-29 07:46:00 97 /min [facility] Arterial blood by [facility] Pulse oximetry Systolic blood 2021-06-26 10:15:00 169 mm[Hg] [facility] Diastolic blood 2021-06-26 10:15:00 66 mm[Hg] [facility] Heart rate 2021-06-26 10:15:00 71 /min [facility] Body temperature 2021-06-26 10:15:00 36.56 Priya [facility] Respiratory rate 2021-06-26 10:15:00 16 /min [facility] Oxygen saturation in 2021-06-26 10:15:00 99 /min [facility] Arterial blood by [facility] Pulse oximetry Systolic blood 2021-06-26 08:15:00 128 mm[Hg] [facility] Diastolic blood 2021-06-26 08:15:00 53 mm[Hg] [facility] Heart rate 2021-06-26 08:15:00 70 /min [facility] Body temperature 2021-06-26 08:15:00 36.5 Priya [facility] Respiratory rate 2021-06-26 08:15:00 9 /min [facility] Oxygen saturation in 2021-06-26 08:15:00 97 /min [facility] Arterial blood by [facility] Pulse oximetry Body weight 2021-06-25 00:00:00 64.5 kg [facility] BMI 2021-06-25 00:00:00 25.19 kg/m2 [facility] Body height 2021-06-13 11:09:00 160 cm [facility] Body height 2020-07-24 16:34:00 160 cm [facility] Body weight 2020-07-24 16:34:00 67 kg [facility] BMI 2020-07-24 16:34:00 26.17 kg/m2 [facility] Temperature Oral (F) 2019-02-19 22:00:00 98.3 F [facility] Heart Rate 2019-02-19 22:00:00 [facility] Respitory Rate 2019-02-19 22:00:00 [facility] Systolic (mm Hg) 2019-02-19 22:00:00 Dickson [facility] Diastolic (mm Hg) 2019-02-19 22:00:00 [facility] Height 2019-02-19 11:49:00 [facility] Weight 2019-02-19 11:49:00 [facility] Height 2019-01-26 05:47:00 [facility] Heart Rate 2019-01-26 05:47:00 [facility] Respitory Rate 2019-01-26 05:47:00 [facility] Systolic (mm Hg) 2019-01-26 05:47:00 Dickson rial [facility] Diastolic (mm Hg) 2019-01-26 05:47:00 [facility] Temperature Oral (F) 2019-01-26 05:19:00 101.3 F [facility] Weight 2019-01-26 01:51:00 [facility] Heart Rate 2018-10-11 20:05:00 [facility] Systolic (mm Hg) 2018-10-11 20:05:00 Dickson riajay [facility] Diastolic (mm Hg) 2018-10-11 20:05:00 [facility] Temperature Oral (F) 2018-10-11 20:00:00 98.1 F [facility] Respitory Rate 2018-10-11 20:00:00 Talisha al [facility] Height 2018-10-10 13:16:00 [facility] Weight 2018-10-10 13:16:00 [facility] Procedures Procedure Date / Time Performing Clinician Source Performed EXTERNAL PROVIDER - ADC 2021-10-21 05:01:00 Doctor Unassigned, N o [facility] ARRYTHMIA IMPLANT REPORT 2021-07-06 00:00:00 Provider, Judah ALEGRIA [facility] POCT-GLUCOSE METER 2021-07-04 08:33:00 Logan Russo [facility] CBC (HEMOGRAM ONLY) 2021-07-04 04:37:[address] [facility] BASIC METABOLIC PANEL (7) 2021-07-04 04:37:[address] [facility] MAGNESIUM 2021-07-04 04:37:00 Martinez Ricardo [facility] PHOSPHORUS 2021-07-04 04:37:00 [facility] PORT[facility] 2021-07-04 04:30:00 Martinez Ricardo [facility] / BEDSIDE [facility] POCT-GLUCOSE METER 2021-07-03 21:18:00 Logan Russo [facility] POCT-GLUCOSE METER 2021-07-03 17:40:00 Logan Russo [facility] SARS-COV2/RT-PCR ([facility] & 2021-07-03 17:24:00 Martinez Ricardo [facility] REF LABS) [facility] POCT-GLUCOSE METER 2021-07-03 16:06:00 Logan Russo [facility] REPORT OF PROCEDURE - 2021-07-03 15:34:23 Angela Loco DIANE [facility] ENDOSCOPY URL [facility] COLONOSCOPY 2021-07-03 15:05:00 Amaratungzaida Angela [facility] TISSUE EXAM 2021-07-03 15:04:00 Amaratungzaida Angela [facility] COLONOSCOPY,POLYPECTOMY 2021-07-03 14:39:00 Amaratungzaida Mayoprema stanley DIANE [facility] COLONOSCOPY, WITH 2021-07-03 14:39:00 Amaratungzaida Mayohomar [facility] POLYPECTOMY [facility] COLONOSCOPY 2021-07-03 14:00:00 Amaratguerda Angela [facility] POCT-GLUCOSE METER 2021-07-03 13:31:00 RussoLogan del cid [facility] COLONOSCOPY 2021-07-03 13:00:00 Amarashea Mayopremazaida [facility] HEMODIALYSIS INPATIENT 2021-07-03 10:32:50 Wilner Aponte [facility] POCT-GLUCOSE METER 2021-07-03 08:44:00 Logan Russo [facility] XR CHEST 1 VIEW PORTABLE 2021-07-03 05:24:00 Martinez Ricardo [facility] / BEDSIDE [facility] CBC (HEMOGRAM ONLY) 2021-07-03 03:08:[address] [facility] BASIC METABOLIC PANEL (7) 2021-07-03 03:08:00 Dillon Ricardo [facility] MAGNESIUM 2021-07-03 03:08:00 Martinez Ricardo [facility] PHOSPHORUS 2021-07-03 03:08:00 Martinez Ricardo [facility] POCT-GLUCOSE METER 2021-07-02 21:26:00 RussoLogan del cid [facility] POCT-GLUCOSE METER 2021-07-02 17:49:00 RussoLogan [facility] POCT-GLUCOSE METER 2021-07-02 12:48:00 RussoLogan del cid [facility] POCT-GLUCOSE METER 2021-07-02 08:33:00 Logan Russo [facility] XR CHEST 1 VIEW PORTABLE 2021-07-02 06:45:00 Davion [facility] CBC (HEMOGRAM ONLY) 2021-07-02 05:29:[address] [facility] BASIC METABOLIC PANEL (7) 2021-07-02 05:29:[address] [facility] MAGNESIUM 2021-07-02 05:29:00 Martinez Ricardo [facility] PHOSPHORUS 2021-07-02 05:29:00 Davion [facility] POCT-GLUCOSE METER 2021-07-01 21:45:00 RussoLogan del cid [facility] POCT-GLUCOSE METER 2021-07-01 17:44:00 RussoLogan del cid [facility] POCT-GLUCOSE METER 2021-07-01 13:26:00 Logan Russo [facility] HEMODIALYSIS INPATIENT 2021-07-01 12:51:00 Jersey Costello [facility] HEMODIALYSIS INPATIENT 2021-07-01 09:16:58 Jersey Costello [facility] POCT-GLUCOSE METER 2021-07-01 08:31:00 Logan Russo [facility] XR CHEST 1 VIEW PORTABLE 2021-07-01 05:38:00 Martinez Ricardo [facility] / [facility] CBC (HEMOGRAM ONLY) 2021-07-01 05:15:00 Davion [facility] BASIC METABOLIC PANEL (7) 2021-07-01 05:15:[address] [facility] MAGNESIUM 2021-07-01 05:15:00 Davion [facility] PHOSPHORUS 2021-07-01 05:15:00 Martinez Ricardo [facility] POCT-GLUCOSE METER 2021-06-30 21:03:00 Logan Russo [facility] VENOGRAM 2021-06-30 18:06:00 Krzysztof Dodd [facility] POCT-GLUCOSE METER 2021-06-30 17:27:00 Logan Russo [facility] XR ABDOMEN / KUB 1 VIEW 2021-06-30 17:21:00 Rowan Loco [facility] POCT-GLUCOSE METER 2021-06-30 12:24:00 RussoLogan [facility] POCT-GLUCOSE METER 2021-06-30 08:15:00 Logan Russo [facility] CBC (HEMOGRAM ONLY) 2021-06-30 04:40:[address] [facility] BASIC METABOLIC PANEL (7) 2021-06-30 04:40:[address] [facility] MAGNESIUM 2021-06-30 04:40:00 Martinez Ricardo [facility] PHOSPHORUS 2021-06-30 04:40:00 Davion [facility] XR CHEST 1 VIEW PORTABLE 2021-06-30 03:46:00 Martinez Ricardo [facility] / BEDSIDE [facility] PREPARE LEUKO-REDUCED RBC 2021-06-29 23:54:[address] [facility] POCT-GLUCOSE METER 2021-06-29 21:53:00 RussoLogan del cid [facility] POCT-GLUCOSE METER 2021-06-29 17:44:00 RussoLogan [facility] POCT-GLUCOSE METER 2021-06-29 14:20:00 Logan Russo [facility] HEMODIALYSIS INPATIENT 2021-06-29 13:25:[address] [facility] POCT-GLUCOSE METER 2021-06-29 08:39:00 RussoLogan [facility] XR CHEST 1 VIEW PORTABLE 2021-06-29 05:20:00 Martinez Ricardo [facility] / [facility] CBC (HEMOGRAM ONLY) 2021-06-29 04:49:[address] [facility] BASIC METABOLIC PANEL (7) 2021-06-29 04:49:[address] [facility] MAGNESIUM 2021-06-29 04:49:00 Martinez Ricardo [facility] PHOSPHORUS 2021-06-29 04:49:00 [facility]SE [facility]ER 2021-06-28 19:42:00 RussoLogan [facility] POCT-GLUCOSE METER 2021-06-28 17:22:00 Logan Russo [facility] CBC W/PLT COUNT & AUTO 2021-06-28 15:23:00 Niki [facility] CBC W/PLT COUNT & AUTO 2021-06-28 15:23:00 Niki [facility] POCT-GLUCOSE METER 2021-06-28 12:31:00 Logan Russo [facility] TRANSFUSE LEUKO-REDUCED 2021-06-28 11:03:00 [facility] PREPARE LEUKO-REDUCED RBC 2021-06-28 10:49:[address] [facility] POCT-GLUCOSE METER 2021-06-28 08:32:00 RussoLogan del cid [facility] XR CHEST 1 VIEW PORTABLE 2021-06-28 04:23:00 Martinez Ricardo [facility] / [facility] CBC (HEMOGRAM ONLY) 2021-06-28 04:05:[facility]OLIC PANEL (7) 2021-06-28 04:05:[address] [facility] MAGNESIUM 2021-06-28 04:05:00 Martinez Ricardo [facility] PHOSPHORUS 2021-06-28 04:05:00 Martinez Ricardo [facility] PREPARE LEUKO-REDUCED RBC 2021-06-27 23:54:00 Dillon Ricardo [facility] POCT-GLUCOSE METER 2021-06-27 21:27:00 RussoLogan [facility] POCT-GLUCOSE METER 2021-06-27 17:51:00 RussoLogan [facility] POCT-GLUCOSE METER 2021-06-27 15:02:00 RussoLogan [facility] POCT-GLUCOSE METER 2021-06-27 12:08:00 Logan Russo [facility] POCT-GLUCOSE METER 2021-06-27 08:23:00 Logan Russo [facility] SARS-COV2/RT-PCR ([facility] & 2021-06-27 04:13:00 Martinez Ricardo [facility] REF LABS) [facility] CBC (HEMOGRAM ONLY) 2021-06-27 04:08:[address] [facility] BASIC METABOLIC PANEL (7) 2021-06-27 04:08:[address] [facility] MAGNESIUM 2021-06-27 04:08:00 Martinez Ricardo [facility] PHOSPHORUS 2021-06-27 04:08:00 Martinez Ricardo [facility] APTT 2021-06-27 04:08:00 Abel Hernandez [facility] PROTHROMBIN TIME/INR 2021-06-27 04:08:00 Abel Hernandez [facility] XR CHEST 1 VIEW PORTABLE 2021-06-27 03:58:00 Martinez Ricardo [facility] / BEDSIDE [facility] POCT-GLUCOSE METER 2021-06-26 20:59:00 Logan Russo [facility] HEMODIALYSIS INPATIENT 2021-06-26 19:13:00 Wilner Aponte [facility] POCT-GLUCOSE METER 2021-06-26 18:55:00 Russo, Logan Vaca [facility] HEMOGLOBIN AND HEMATOCRIT 2021-06-26 11:31:00 Rip Dannielle ayala [facility] POCT-GLUCOSE METER 2021-06-26 11:15:00 Russo, Logan Vaca [facility] POCT-GLUCOSE METER 2021-06-26 09:16:00 Russo, Logan Vaca [facility] LASER EXTRACTION,LEAD 2021-06-26 07:30:00 Krzysztof Dodd [facility] TRANSFUSE LEUKO-REDUCED 2021-06-26 06:15:00 [facility] PREPARE LEUKO-REDUCED RBC 2021-06-26 06:01:[address] [facility] CBC (HEMOGRAM ONLY) 2021-06-26 03:25:[address] [facility] BASIC METABOLIC PANEL (7) 2021-06-26 03:25:[address] [facility] MAGNESIUM 2021-06-26 03:25:00 Davion [facility] PHOSPHORUS 2021-06-26 03:25:00 Davion [facility] APTT 2021-06-26 03:25:00 Abel Hernandez [facility] PROTHROMBIN TIME/INR 2021-06-26 03:25:00 MaryAbel hernandez [facility] XR CHEST 1 VIEW PORTABLE 2021-06-26 01:25:00 Martinez Ricardo [facility] / BEDSIDE [facility] POCT-GLUCOSE METER 2021-06-25 21:46:00 Logan Russo [facility] TYPE AND SCREEN, 2021-06-25 18:55:00 Krzysztof Dodd [facility] IR TUNNELED CATHETER 2021-06-25 17:45:00 Gurinder Nash [facility] POCT-GLUCOSE METER 2021-06-25 11:18:00 Russo, Logan Vaca [facility] ECG 12-LEAD 2021-06-25 09:57:06 Unknown, Dariana7 [facility] ECG 12-LEAD 2021-06-25 09:57:06 Unknown, 7 [facility] ECG 12-LEAD 2021-06-25 09:57:06 Unknown, Hl7 [facility] ECG 12-LEAD 2021-06-25 09:56:17 Unknown, 7 [facility] ECG 12-LEAD 2021-06-25 09:56:17 Unknown, 7 [facility] CBC (HEMOGRAM ONLY) 2021-06-25 02:56:00 Davion [facility] BASIC METABOLIC PANEL (7) 2021-06-25 02:56:[address] [facility] MAGNESIUM 2021-06-25 02:56:00 Martinez Ricardo [facility] PHOSPHORUS 2021-06-25 02:56:00 Davion [facility] APTT 2021-06-25 02:56:00 MaryAbel hernandez [facility] PROTHROMBIN TIME/INR 2021-06-25 02:56:00 MaryAbel hernandez [facility] XR CHEST 1 VIEW PORTABLE 2021-06-25 02:31:00 Martinez Ricardo [facility] / BEDSIDE [facility] POCT-GLUCOSE METER 2021-06-24 22:02:00 RussoLogan del cid [facility] XR ABDOMEN / KUB 1 VIEW 2021-06-24 18:29:00 Gurinder Nash [facility] POCT-GLUCOSE METER 2021-06-24 16:07:00 Logan Russo [facility] POCT-GLUCOSE METER 2021-06-24 12:26:00 Logan Russo [facility] HEMODIALYSIS INPATIENT 2021-06-24 11:25:03 Wilner Aponte [facility] POCT-GLUCOSE METER 2021-06-24 08:28:00 Logan Russo [facility] CBC (HEMOGRAM ONLY) 2021-06-24 03:01:[address] [facility] BASIC METABOLIC PANEL (7) 2021-06-24 03:01:[address] [facility] MAGNESIUM 2021-06-24 03:01:00 Martinez Ricardo [facility] PHOSPHORUS 2021-06-24 03:01:00 Davion [facility] APTT 2021-06-24 03:01:00 Abel Hernandez [facility] PROTHROMBIN TIME/INR 2021-06-24 03:01:00 Abel Hernandez [facility] XR CHEST 1 VIEW PORTABLE 2021-06-24 00:32:00 Martinez Ricardo [facility] / BEDSIDE [facility] POCT-GLUCOSE METER 2021-06-23 20:56:00 Logan Russo [facility] POCT-GLUCOSE METER 2021-06-23 16:10:00 Logan Russo [facility] BASIC METABOLIC PANEL (7) 2021-06-23 12:59:00 Omaira Manzo [facility] POCT-GLUCOSE METER 2021-06-23 11:20:00 Logan Russo [facility] POCT-GLUCOSE METER 2021-06-23 07:29:00 Logan Russo [facility] BASIC METABOLIC PANEL (7) 2021-06-23 04:49:00 Omaira Manzo [facility] MAGNESIUM 2021-06-23 04:49:00 Martinez Ricardo [facility] PHOSPHORUS 2021-06-23 04:49:00 Davion [facility] CBC (HEMOGRAM ONLY) 2021-06-23 02:41:00 Kahlenberg, Martinez [facility] APTT 2021-06-23 02:41:00 MaryAbel hernandez [facility] PROTHROMBIN TIME/INR 2021-06-23 02:41:00 Abel Hernandez [facility] XR CHEST 1 VIEW PORTABLE 2021-06-23 01:19:00 Martinez Ricardo [facility] / BEDSIDE [facility] POCT-GLUCOSE METER 2021-06-22 22:11:00 Logan Russo [facility] POCT-GLUCOSE METER 2021-06-22 18:02:00 Logan Russo [facility] 2D ECHO W/ DOPPLER 2021-06-22 15:55:38 Lupis Erwin CH, I [facility] (CW/PW/COLOR) [facility] BASIC METABOLIC PANEL (7) 2021-06-22 14:30:00 Omaira Manzo [facility] POCT-GLUCOSE METER 2021-06-22 12:25:00 Logan Russo [facility] HEMODIALYSIS INPATIENT 2021-06-22 11:44:15 Wilner Aponte [facility] OXYGEN SATURATION, 2021-06-22 10:35:00 Lupis Erwin CH, I [facility] BASIC METABOLIC PANEL (7) 2021-06-22 05:37:00 [facility] 2021-06-22 01:34:[address] [facility] APTT 2021-06-22 01:34:00 MaryAbel hernandez [facility] PROTHROMBIN TIME/INR 2021-06-22 01:34:00 Abel Hernandez [facility] BASIC METABOLIC PANEL (7) 2021-06-22 01:33:00 Omaira Manzo [facility] MAGNESIUM 2021-06-22 01:33:00 Martinez Ricardo [facility] PHOSPHORUS 2021-06-22 01:33:00 [place] PORTABLE 2021-06-22 01:05:00 DavionRafaelry [facility] POCT-GLUCOSE METER 2021-06-21 21:09:00 RussoLogan del cid [facility] POCT-GLUCOSE METER 2021-06-21 18:58:00 RussoLogan [facility] POCT-GLUCOSE METER 2021-06-21 13:30:00 Logan Russo [facility] BASIC METABOLIC PANEL (7) 2021-06-21 13:29:00 Omaira Manzo [facility] PREPARE LEUKO-REDUCED RBC 2021-06-21 03:28:00 Derick Carver Si [facility] BASIC METABOLIC PANEL (7) 2021-06-21 03:21:00 Omaira Manzo [facility] MAGNESIUM 2021-06-21 03:21:00 Samia Tamayo [facility] PHOSPHORUS 2021-06-21 03:21:00 sarah [facility] CBC (HEMOGRAM ONLY) 2021-06-21 03:21:00 Jaimeelynda [facility] APTT 2021-06-21 03:21:00 Abel Hernandez [facility] PROTHROMBIN TIME/INR 2021-06-21 03:21:00 Abel Hernandez [facility] XR CHEST 1 VIEW PORTABLE 2021-06-21 01:34:00 Jaimeelynda Martinez [facility] PREPARE LEUKO-REDUCED RBC 2021-06-20 23:54:[address] [facility] BASIC METABOLIC PANEL (7) 2021-06-20 17:40:00 Omaira Manzo [facility] POCT-GLUCOSE METER 2021-06-20 13:33:00 RussoLogan [facility] POCT-GLUCOSE METER 2021-06-20 06:06:00 Logan Russo [facility] SARS-COV2/RT-PCR ([facility] & 2021-06-20 01:20:00 [facility] BLOOD GAS, ARTERIAL 2021-06-20 01:20:00 Abel Hernandez [facility] BASIC METABOLIC PANEL (7) 2021-06-20 01:19:00 Samia Tamayo I [facility] MAGNESIUM 2021-06-20 01:19:00 Ahmad [facility] PHOSPHORUS 2021-06-20 01:19:00 sarah [facility] CBC (HEMOGRAM ONLY) 2021-06-20 01:19:[address] [facility] APTT 2021-06-20 01:19:00 Abel Hernandez [facility] PROTHROMBIN TIME/INR 2021-06-20 01:19:00 Abel Hernandez [facility] CALCIUM, IONIZED 2021-06-20 01:19:00 Jersey Costello [facility] XR CHEST 1 VIEW PORTABLE 2021-06-20 01:05:00 Martinez Ricardo [facility] / BEDSIDE [facility] PREPARE PLATELETS 2021-06-19 23:55:00 Jameson Kuo [facility] PREPARE RBC 2021-06-19 23:54:00 Logan Russo [facility] MAGNESIUM 2021-06-19 21:32:00 Jersey Costello [facility] 2021-06-19 21:32:00 Wilner Aponte [facility] PHOSPHORUS 2021-06-19 21:32:00 Jersey Costello Wilner [facility] BASIC METABOLIC PANEL (7) 2021-06-19 21:32:00 Omaira Manzo [facility] POCT-GLUCOSE METER 2021-06-19 17:55:00 Logan Russo [facility] BLOOD GAS, ARTERIAL 2021-06-19 12:39:00 Abel Hernandez [facility] BLOOD GAS, ARTERIAL 2021-06-19 11:13:00 MaryAbel [facility] POCT-GLUCOSE METER 2021-06-19 08:41:00 Russo, Logan Vaca [facility] TRANSFUSE LEUKO-REDUCED 2021-06-19 07:45:00 Derick Carver [facility] RED BLOOD CELLS [facility] BASIC METABOLIC PANEL (7) 2021-06-19 02:14:00 AhmadSamia I [facility] MAGNESIUM 2021-06-19 02:14:00 Ahmad, [facility] PHOSPHORUS 2021-06-19 02:14:00 Ahmad, [facility] CBC (HEMOGRAM ONLY) 2021-06-19 02:14:[address] [facility] APTT 2021-06-19 02:14:00 Mary, Abel [facility] PROTHROMBIN TIME/INR 2021-06-19 02:14:00 Mary, Abel [facility] BLOOD GAS, ARTERIAL 2021-06-19 02:14:00 Mary, Abel [facility] OXYGEN SATURATION, 2021-06-19 02:14:00 Art Jiménez [facility] XR CHEST 1 VIEW PORTABLE 2021-06-19 01:52:00 Davion [facility] / BEDSIDE [facility] POCT-GLUCOSE METER 2021-06-18 23:55:00 Russo, Logan Vaca [facility] PREPARE LEUKO-REDUCED RBC 2021-06-18 23:55:00 Shiva Jeter [facility] POCT-GLUCOSE METER 2021-06-18 23:03:00 Russo, Logan Vaca [facility] POCT-GLUCOSE METER 2021-06-18 21:14:00 Russo, Logan Vaca [facility] POCT-GLUCOSE METER 2021-06-18 18:54:00 Russo, Logan Vaca [facility] CBC (HEMOGRAM ONLY) 2021-06-18 18:15:00 MaryAbel hernandez [facility] BASIC METABOLIC PANEL (7) 2021-06-18 18:15:00 MaryAbel hernandez [facility] APTT 2021-06-18 18:15:00 MaryAbel hernandez [facility] PROTHROMBIN TIME/INR 2021-06-18 18:15:00 MaryAbel hernandez [facility] LACTIC ACID, ARTERIAL 2021-06-18 18:15:00 MaryAbel hernandez [facility] I [facility] PHOSPHORUS 2021-06-18 18:15:00 Mary, Abel Rey [facility] MAGNESIUM 2021-06-18 18:15:00 MaryAbel hernandez [facility] BLOOD GAS, ARTERIAL 2021-06-18 18:15:00 MaryAbel [facility] OXYGEN SATURATION, 2021-06-18 18:15:00 Abel Hernandez [facility] RRL CRITICAL LABS 2021-06-18 16:04:00 Mary, [facility] (ABG,NA,K,H&H,GLUCOSE) Medical C enter CALCIUM, IONIZED 2021-06-18 16:04:00 Mary Abel [facility] BLOOD GAS, ARTERIAL 2021-06-18 16:04:00 Mary Abel [facility] SODIUM NA-STAT LAB 2021-06-18 16:04:00 Mary Abel [facility] POTASSIUM-STAT LAB 2021-06-18 16:04:00 Mary [facility] GLUCOSE-STAT LAB 2021-06-18 16:04:00 Mary [facility] HGB/HCT (H&H) - STAT LAB 2021-06-18 16:04:00 [facility] PREPARE PLASMA 2021-06-18 15:44:00 Logan Russo [facility] XR CHEST 1 VIEW PORTABLE 2021-06-18 15:33:00 MaryAbel hernandez [facility] / BEDSIDE Medical Center OXYGEN SATURATION, 2021-06-18 15:03:00 Abel Hernandez [facility] SURGICALLY OBTAINED 2021-06-18 15:01:[address] [facility] CULTURE + GRAM STAIN Medical [facility] FUNGUS CULTURE + SMEAR 2021-06-18 15:01:35 Logan Russo [facility] CULTURE + SMEAR 2021-06-18 15:01:[address] [facility] (NON-SPUTUM) [facility] HEMOGLOBIN AND HEMATOCRIT 2021-06-18 14:58:00 Luh Cosby CH I [facility] CBC W/PLT COUNT & AUTO 2021-06-18 14:58:00 Abel Hernandez [facility] CBC W/PLT COUNT & AUTO 2021-06-18 14:58:00 Abel Hernandez [facility] (CELLAVISION MANUAL DIFF) 2021-06-18 14:58:00 Abel Hernandez [facility] BASIC METABOLIC PANEL (7) 2021-06-18 14:57:00 Abel Hernandez [facility] MAGNESIUM 2021-06-18 14:57:00 Abel Hernandez [facility] CALCIUM, IONIZED 2021-06-18 14:57:00 Abel Hernandez [facility] PROTHROMBIN TIME/INR 2021-06-18 14:57:00 Abel Hernandez [facility] APTT 2021-06-18 14:57:00 Abel Hernandez [facility] PHOSPHORUS 2021-06-18 14:57:00 Abel Hernandez [facility] POTASSIUM 2021-06-18 14:57:00 Mary [facility] PREPARE PLATELETS 2021-06-18 14:20:00 Jameson Kuo [facility] PLATELET COUNT 2021-06-18 13:12:54 Asad Santana [facility] POCT-ACT 2021-06-18 13:08:00 Logan Russo [facility] RRL CRITICAL LABS 2021-06-18 13:05:56 Neptune, [facility] (ABG,NA,K,H&H,GLUCOSE) [facility] C enter CALCIUM, IONIZED 2021-06-18 13:05:56 [facility] FIBRINOGEN 2021-06-18 13:05:[address] [facility] APTT 2021-06-18 13:05:[facility]/INR 2021-06-18 13:05:56 Max, [facility] BLOOD GAS, ARTERIAL 2021-06-18 13:05:56 Neptune [facility] SODIUM NA-STAT LAB 2021-06-18 13:05:56 Max [facility] POTASSIUM-STAT LAB 2021-06-18 13:05:56 Neptune [facility] GLUCOSE-STAT LAB 2021-06-18 13:05:56 [facility] HGB/HCT (H&H) - STAT LAB 2021-06-18 13:05:56 Asad Santana [facility] TRANSFUSE LEUKO-REDUCED 2021-06-18 12:46:00 Asad Santana [facility] PLATELETS [facility] TRANSFUSE LEUKO-REDUCED 2021-06-18 12:45:00 Asad Santana [facility] PLATELETS [facility] RRL CRITICAL LABS 2021-06-18 12:22:57 Logan Russo [facility] (ABG,NA,K,H&H,GLUCOSE) Medical C enter BLOOD GAS, ARTERIAL 2021-06-18 12:22:57 Logan Russo [facility] SODIUM NA-STAT LAB 2021-06-18 12:22:57 Logan Russo [facility] POTASSIUM-STAT LAB 2021-06-18 12:22:57 Logan Russo [facility] GLUCOSE-STAT LAB 2021-06-18 12:22:57 Logan Russo [facility] HGB/HCT (H&H) - STAT LAB 2021-06-18 12:22:57 Logan Russo [facility] POCT-ACT 2021-06-18 12:20:00 Logan Russo [facility] RRL CRITICAL LABS 2021-06-18 12:17:57 Logan Russo [facility] (ABG,NA,K,H&H,GLUCOSE) Medical C enter BLOOD GAS, ARTERIAL 2021-06-18 12:17:57 Logan Russo [facility] SODIUM NA-STAT LAB 2021-06-18 12:17:57 Logan Russo [facility] POTASSIUM-STAT LAB 2021-06-18 12:17:57 Logan Russo [facility] GLUCOSE-STAT LAB 2021-06-18 12:17:57 Logan Russo [facility] HGB/HCT (H&H) - STAT LAB 2021-06-18 12:17:57 Logan Russo [facility] MISCELLANEOUS LAB ORDER 2021-06-18 11:59:38 Asad Santana [facility] PLATELET COUNT 2021-06-18 11:59:[address] [facility] FIBRINOGEN 2021-06-18 11:59:[address] [facility] PROTHROMBIN TIME/INR 2021-06-18 11:59:38 Asad Santana [facility] APTT 2021-06-18 11:59:[address] [facility] POCT-ACT 2021-06-18 11:43:00 Logan Russo [facility] TISSUE EXAM 2021-06-18 11:41:00 Logan Russo [facility] RRL CRITICAL LABS 2021-06-18 11:40:27 Logan Russo [facility] (ABG,NA,K,H&H,GLUCOSE) Medical C enter BLOOD GAS, ARTERIAL 2021-06-18 11:40:27 Russo, [facility] SODIUM NA-STAT LAB 2021-06-18 11:40:27 Russo, [facility] POTASSIUM-STAT LAB 2021-06-18 11:40:27 Russo, Logan [facility] GLUCOSE-STAT LAB 2021-06-18 11:40:27 Russo, [facility] HGB/HCT (H&H) - STAT LAB 2021-06-18 11:40:27 Russo, [facility] POCT-ACT 2021-06-18 11:15:00 Russo, [facility] RRL CRITICAL LABS 2021-06-18 11:13:46 Russo, Logan Vaca [facility] es (ABG,NA,K,H&H,GLUCOSE) Medical C enter BLOOD GAS, ARTERIAL 2021-06-18 11:13:46 Russo, [facility] SODIUM NA-STAT LAB 2021-06-18 11:13:46 Russo, [facility] POTASSIUM-STAT LAB 2021-06-18 11:13:46 Russo, [facility] GLUCOSE-STAT LAB 2021-06-18 11:13:46 Russo, [facility] HGB/HCT (H&H) - STAT LAB 2021-06-18 11:13:46 Russo, Logan [facility] POCT-ACT 2021-06-18 10:47:00 Russo, [facility] RRL CRITICAL LABS 2021-06-18 10:45:20 Russo, Logan Vaca [facility] (ABG,NA,K,H&H,GLUCOSE) Medical C enter BLOOD GAS, ARTERIAL 2021-06-18 10:45:20 Russo, [facility] SODIUM NA-STAT LAB 2021-06-18 10:45:20 Russo, [facility] POTASSIUM-STAT LAB 2021-06-18 10:45:20 Russo, Logan Vaca [facility] GLUCOSE-STAT LAB 2021-06-18 10:45:20 Russo, Logan Vaca [facility] HGB/HCT (H&H) - STAT LAB 2021-06-18 10:45:20 RussoLogan [facility] POCT-ACT 2021-06-18 10:14:00 Russo, Logan Vaca [facility] ANESTHESIA NIMCO 2021-06-18 10:03:35 Lydia Marmolejo [facility] TRANSFUSE LEUKO-REDUCED 2021-06-18 09:26:00 Asad Santana [facility] RED BLOOD CELLS [facility] RRL CRITICAL LABS 2021-06-18 08:54:20 [facility] (ABG,NA,K,H&H,GLUCOSE) [facility] enter CALCIUM, IONIZED 2021-06-18 08:54:20 Max [facility] BLOOD GAS, ARTERIAL 2021-06-18 08:54:20 Max [facility] SODIUM NA-STAT LAB 2021-06-18 08:54:20 Max [facility] POTASSIUM-STAT LAB 2021-06-18 08:54:20 Neptune, [facility] GLUCOSE-STAT LAB 2021-06-18 08:54:20 Max [facility] HGB/HCT (H&H) - STAT LAB 2021-06-18 08:54:20 Asad Santana [facility] ECHOCARDIOGRAM, 2021-06-18 07:38:00 Russo, Logan Vaca [facility] TRANSESOPHAGEAL [facility] REPAIR, MITRAL VALVE 2021-06-18 07:38:00 Russo, Logan Vaca [facility] REPAIR, TRICUSPID VALVE 2021-06-18 07:38:00 Russo, Logan Vaca [facility] STERNOTOMY 2021-06-18 07:38:00 Russo, Logan Vaca [facility] NIMCO 2021-06-18 07:38:00 Rafaela Logan Vaca [facility] CBC W/PLT COUNT & AUTO 2021-06-18 05:37:00 [facility] BASIC METABOLIC PANEL (7) 2021-06-18 05:37:00 akil [facility] MAGNESIUM 2021-06-18 05:37:00 Ahmapamela [facility] PHOSPHORUS 2021-06-18 05:37:00 ma [facility] CBC W/PLT COUNT & AUTO 2021-06-18 05:37:00 [facility] TRANSFUSE LEUKO-REDUCED 2021-06-17 23:31:00 Shiva Jeter [facility] RED BLOOD CELLS [facility] POCT-GLUCOSE METER 2021-06-17 21:28:00 [facility] HEMOGLOBIN AND HEMATOCRIT 2021-06-17 21:16:[address] [facility] ABDOMEN/PELVIS WITHOUT 2021-06-17 17:07:00 [facility] IV CONTRAST [facility] XR ABDOMEN / KUB 1 VIEW 2021-06-17 16:15:00 [facility] MAGNESIUM 2021-06-17 15:48:00 [facility] COMPREHENSIVE METABOLIC 2021-06-17 15:48:[address] [facility] PANEL [facility] HEMOGLOBIN A1C 2021-06-17 15:48:00 [facility] CBC W/PLT COUNT & AUTO 2021-06-17 15:48:00 [facility] PROTHROMBIN TIME/INR 2021-06-17 15:48:00 [facility] APTT 2021-06-17 15:48:00 [facility] TYPE AND SCREEN, 2021-06-17 15:48:00 [facility] AUTOMATED [facility] CBC W/PLT COUNT & AUTO 2021-06-17 15:48:00 [facility] DIFFERENTIAL [facility] ECG 12-LEAD 2021-06-17 15:31:19 [facility] HEMODIALYSIS INPATIENT 2021-06-17 08:22:41 Wilner Aponte [facility] CBC W/PLT COUNT & AUTO 2021-06-17 04:15:00 Ahmapamela [facility] BASIC METABOLIC PANEL (7) 2021-06-17 04:15:00 AhmadSamia I [facility] MAGNESIUM 2021-06-17 04:15:00 AhmadSamia [facility] PHOSPHORUS 2021-06-17 04:15:00 AhmadSamia [facility] CBC W/PLT COUNT & AUTO 2021-06-17 04:15:00 Ahsarah [facility] POCT-GLUCOSE METER 2021-06-16 23:59:00 [facility]ER 2021-06-16 18:00:00 Harjeet [facility] [place] CEREBRAL 4 VESSEL 2021-06-16 12:55:00 Eloy Portillo [facility] ANGIOGRAM [facility] PACEMAKER CHECK WITH 2021-06-16 10:00:06 Rosa Maria [facility] REPROGRAMMING [facility] MR BRAIN WITHOUT IV 2021-06-16 09:57:00 Ladarius Jc [facility] CONTRAST [facility] PACEMAKER CHECK WITH 2021-06-16 09:31:48 Rosa Maria [facility] REPROGRAMMING [facility] POCT-GLUCOSE METER 2021-06-16 07:18:00 Harjeet [facility] CBC W/PLT COUNT & AUTO 2021-06-16 04:21:00 Ahmapamela [facility] BASIC METABOLIC PANEL (7) 2021-06-16 04:21:00 Ahsarah [facility] MAGNESIUM 2021-06-16 04:21:00 Ahmad, [facility] PHOSPHORUS 2021-06-16 04:21:00 Ahmad, [facility] CBC W/PLT COUNT & AUTO 2021-06-16 04:21:00 Ahsarah, [facility] POCT-GLUCOSE METER 2021-06-15 21:28:00 [facility] HEART CORONARY WITH 2021-06-15 18:20:00 [facility] EVALU[facility] Medical Cente r WITHOUT FFR HEPATIC FUNCTION PANEL 2021-06-15 15:18:00 Harjeet [facility] ABORH, MANUAL 2021-06-15 05:54:00 Kelli Merrill [facility] PT/APTT 2021-06-15 04:16:00 Ahsarah, [facility] CBC W/PLT COUNT & AUTO 2021-06-15 04:16:00 [facility]IC METABOLIC PANEL (7) 2021-06-15 04:16:00 Ahsarah [facility] MAGNESIUM 2021-06-15 04:16:00 Ahmad, [facility] PHOSPHORUS 2021-06-15 04:16:00 Ahsarah, [facility] TYPE AND SCREEN, 2021-06-15 04:16:00 Ahmapamela, [facility] AUTOMATED [facility] CBC W/PLT COUNT & AUTO 2021-06-15 04:16:00 Ahsarah, [facility] POCT-GLUCOSE METER 2021-06-14 11:09:00 Ladarius Jc [facility] Ce nter POCT-GLUCOSE METER 2021-06-14 07:31:00 Ladarius Jc [facility] Ce nter EEG 12-26 HR CONTINUOUS 2021-06-14 06:25:00 Ladarius Jc [facility] MONITORING WITH VIDEO [facility] CBC W/PLT COUNT & AUTO 2021-06-14 04:05:00 Samia Tamayo [facility] BASIC METABOLIC PANEL (7) 2021-06-14 04:05:00 Samia Tamayo [facility] MAGNESIUM 2021-06-14 04:05:00 AhSamia smith [facility] PHOSPHORUS 2021-06-14 04:05:00 Ahsarah [facility] CBC W/PLT COUNT & AUTO 2021-06-14 04:05:00 Angel Saenz [facility] POCT-GLUCOSE METER 2021-06-13 17:10:00 Ladarius [facility] Ce nter POCT-GLUCOSE METER 2021-06-13 12:44:00 Ladarius [facility] Ce nter HEPARIN ANTIBODY 2021-06-13 11:25:00 Kavitha Almodovar [facility] EEG 12-26 HR CONTINUOUS 2021-06-13 11:06:00 Pamela Orta [facility] MONITORING WITH VIDEO Medical Ce nter IRON, TIBC, % SAT. 2021-06-13 08:28:00 [facility] Cent[facility] r FERRITIN 2021-06-13 08:28:00 Claudette Salmeron [facility] POCT-GLUCOSE METER 2021-06-13 08:27:00 Mary Kate Gracia [facility] CBC W/PLT COUNT & AUTO 2021-06-13 03:36:00 Samia Tamayo [facility] BASIC METABOLIC PANEL (7) 2021-06-13 03:36:00 Samia Tamayo [facility] MAGNESIUM 2021-06-13 03:36:00 Roni [facility] PHOSPHORUS 2021-06-13 03:36:00 Samia Tamaoy [facility] CBC W/PLT COUNT & AUTO 2021-06-13 03:36:00 Angel Saenz [facility] POCT-GLUCOSE METER 2021-06-13 01:48:00 Mary Kate Gracia [facility] HEMODIALYSIS INPATIENT 2021-06-12 23:02:53 Harshil Loving [facility] POCT-GLUCOSE METER 2021-06-12 18:54:00 Mary Kate Gracia [facility] SARS-COV2/RT-PCR ([facility] & 2021-06-12 17:07:00 Martinez Ricardo [facility] REF LABS) [facility] EEG AWAKE AND DROWSY 2021-06-12 12:20:00 Kavitha Almodovar [facility] CT BRAIN WITHOUT IV 2021-06-12 08:15:00 Angel Saenz [facility] POCT-GLUCOSE METER 2021-06-12 07:20:00 Bree Graciacata [facility] CTA BRAIN 2021-06-12 01:53:00 Janina [facility] CTA CAROTID 2021-06-12 01:53:00 Janina [facility] CT BRAIN WITHOUT IV 2021-06-12 01:31:00 [facility] W/PLT COUNT & AUTO 2021-06-12 01:07:00 Samia Tamayo [facility] HIGH SENSITIVITY TROPONIN 2021-06-12 01:07:00 Mary Kate Gracia I [facility] LACTIC ACID, VENOUS 2021-06-12 01:07:00 Mary Kate Gracia [facility] PROTHROMBIN TIME/INR 2021-06-12 01:07:00 Mary Kate Gracia [facility] CBC W/PLT COUNT & AUTO 2021-06-12 01:07:00 Anshul Acharya [facility] BASIC METABOLIC PANEL (7) 2021-06-12 00:49:00 MarenpamelaSamia I [facility] MAGNESIUM 2021-06-12 00:49:00 AhmadSamia CHI [facility] PHOSPHORUS 2021-06-12 00:49:00 Ahmad, Samia [facility] ECG 12-LEAD 2021-06-12 00:43:57 Unknown, [facility] ECG 12-LEAD 2021-06-12 00:43:57 Unknown, 7 [facility] ECG 12-LEAD 2021-06-12 00:43:57 Unknown, 7 [facility] ECG 12-LEAD 2021-06-12 00:40:07 Unknown, [address] ECG 12-LEAD 2021-06-12 00:40:07 Unknown, [address] ECG 12-LEAD 2021-06-12 00:39:50 Unknown, 7 [facility] ECG 12-LEAD 2021-06-12 00:39:50 Unknown, 7 [facility] ECG 12-LEAD 2021-06-12 00:39:50 Unknown, [address] POCT-GLUCOSE METER 2021-06-12 00:35:00 [facility] POCT-GLUCOSE METER 2021-06-11 20:12:00 Samia [facility] POCT-GLUCOSE METER 2021-06-11 16:12:00 [facility] BLOOD CULTURE 2021-06-11 11:47:00 Jocelyne Alejandre [facility] POCT-GLUCOSE METER 2021-06-11 11:17:00 Samia [facility] PACEMAKER CHECK 2021-06-11 10:59:25 Hernandez James [facility] POCT-GLUCOSE METER 2021-06-11 06:33:00 [facility]ia [facility] BLOOD CULTURE 2021-06-11 04:03:00 Jessica John [facility] CBC W/PLT COUNT & AUTO 2021-06-11 04:03:00 Roni [facility] BASIC METABOLIC PANEL (7) 2021-06-11 04:03:00 AhSamia smith I [facility] MAGNESIUM 2021-06-11 04:03:00 Ahmad [facility] PHOSPHORUS 2021-06-11 04:03:00 Ahmad [facility] CBC W/PLT COUNT & AUTO 2021-06-11 04:03:00 Anshul Acharya [facility] POCT-BLOOD GASES, VENOUS 2021-06-10 22:25:00 [facility] POCT-SODIUM 2021-06-10 22:25:00 [facility] POCT-POTASSIUM 2021-06-10 22:25:00 [facility] POCT-HEMOGLOBIN 2021-06-10 22:25:00 [facility] POCT-HEMATOCRIT 2021-06-10 22:25:00 [facility] POCT-GLUCOSE 2021-06-10 22:25:00 [facility] CBC W/PLT COUNT & AUTO 2021-06-10 22:23:00 Jessica John [facility] CBC W/PLT COUNT & AUTO 2021-06-10 22:23:00 Jessica John [facility] XR CHEST 1 VIEW PORTABLE 2021-06-10 22:14:00 Jessica John [facility] / BEDSIDE [facility] BLOOD CULTURE 2021-06-10 22:08:00 Jessica John [facility] LACTIC ACID, VENOUS 2021-06-10 22:07:00 Jessica John [facility] POCT-GLUCOSE METER 2021-06-10 21:20:00 [facility] HEMODIALYSIS INPATIENT 2021-06-10 17:49:00 Wilner Aponte [facility] POCT-GLUCOSE METER 2021-06-10 16:22:00 [facility] POCT-GLUCOSE METER 2021-06-10 11:29:00 [facility] POCT-GLUCOSE METER 2021-06-10 07:27:00 [facility] CBC W/PLT COUNT & AUTO 2021-06-10 04:36:00 Roni [facility] BASIC METABOLIC PANEL (7) 2021-06-10 04:36:00 AhSamia smith [facility] MAGNESIUM 2021-06-10 04:36:00 Ahsarah [facility] PHOSPHORUS 2021-06-10 04:36:00 Ahmapamela [facility] CBC W/PLT COUNT & AUTO 2021-06-10 04:36:00 Anshul Acharya [facility] POCT-GLUCOSE METER 2021-06-09 21:22:00 Haj-Ismail [facility] POCT-GLUCOSE METER 2021-06-09 16:16:00 Habernardino-Isherbert [facility] 2D ECHO W/ DOPPLER 2021-06-09 12:21:49 Rony Shin [facility] (CW/PW/COLOR) [facility] TRANSESOPHAGEAL ECHO 2021-06-09 09:04:02 Jocelyne Alejandre [facility] POCT-GLUCOSE METER 2021-06-09 06:11:00 Haj-Ismail, [facility] CBC W/PLT COUNT & AUTO 2021-06-09 03:34:00 Roni [facility] BASIC METABOLIC PANEL (7) 2021-06-09 03:34:00 AhSamia smith [facility] MAGNESIUM 2021-06-09 03:34:00 AhSamia smith [facility] PHOSPHORUS 2021-06-09 03:34:00 AhSamia smith [facility] CBC W/PLT COUNT & AUTO 2021-06-09 03:34:00 Anshul Acharya [facility] POCT-GLUCOSE METER 2021-06-08 21:03:00 Haj-Isakilil [facility] HEMODIALYSIS INPATIENT 2021-06-08 15:21:58 Jersey [facility] COLOR-FLOW MAPPING 2021-06-08 13:42:25 [facility] CONT WAVE PULSED DOPPLER 2021-06-08 13:42:25 Hill [facility] PTH, INTACT 2021-06-08 10:29:00 Jersey Costello [facility] HEPATITIS B SURFACE 2021-06-08 10:29:00 Real Delgado [facility] HEPATITIS PANEL, ACUTE 2021-06-08 10:29:00 Haj-Ismail, [facility] POCT-GLUCOSE METER 2021-06-08 06:59:00 Jameson Kuo [facility] CBC W/PLT COUNT & AUTO 2021-06-08 05:00:00 Roni [facility] BASIC METABOLIC PANEL (7) 2021-06-08 05:00:00 Samia Tamayo CH I [facility] MAGNESIUM 2021-06-08 05:00:00 Samia Tamayo [facility] PHOSPHORUS 2021-06-08 05:00:00 sarah [facility] PROTHROMBIN TIME/INR 2021-06-08 05:00:00 Anshul Acharya [facility] VITAMIN B12 2021-06-08 05:00:00 Anshul Acharya [facility] FERRITIN 2021-06-08 05:00:00 [facility], [facility]BC, % SAT. 2021-06-08 05:00:00 Wilner Aponte [facility] (WITHOUT FERRITIN) [facility] VITAMIN D, 25-HYDROXY 2021-06-08 05:00:00 Wilner Aponte [facility] CBC W/PLT COUNT & AUTO 2021-06-08 05:00:00 Anshul Acharya [facility] US ABDOMEN LIMITED 2021-06-08 04:51:00 Anshul [facility] SARS-COV2/RT-PCR ([facility] & 2021-06-07 23:43:00 Angel Saenz [facility] REF LABS) [facility] POCT-GLUCOSE METER 2021-06-07 23:11:00 Jameson Kuo [facility] ECG 12-LEAD 2021-06-07 23:06:38 Unknown, [facility] ECG 12-LEAD 2021-06-07 23:06:38 Unknown, [facility] ECG 12-LEAD 2021-06-07 23:06:38 Unknown, [facility] BLOOD CULTURE 2021-06-07 21:48:00 Anshul Acharya [facility] BLOOD CULTURE 2021-06-07 21:41:00 Anshul Acharya [facility] CBC W/PLT COUNT & AUTO 2021-06-07 21:41:00 Anshul Acharya [facility] COMPREHENSIVE METABOLIC 2021-06-07 21:41:00 Anshul Acharya [facility] VANCOMYCIN LEVEL, RANDOM 2021-06-07 21:41:00 Anshul Acharya [facility] CBC W/PLT COUNT & AUTO 2021-06-07 21:41:00 Anshul Acharya [facility] XR CHEST 1 VIEW PORTABLE 2021-06-07 19:59:00 Anshul Acharya [facility] / BEDSIDE [facility] VASCULAR DIAGRAM -SCAN 2021-06-07 00:00:00 Provider, Judah [facility] CARDIAC CATH REPORT - 2021-06-07 00:00:00 Provider, [facility] ARRYTHMIA IMPLANT REPORT 2021-06-07 00:00:00 Provider, Default [facility] POCT GLUCOSE (AUTOMATED) 2021-05-22 23:19:00 Neil [facility] POCT GLUCOSE (AUTOMATED) 2021-05-22 17:36:00 Neil [facility] POCT GLUCOSE (AUTOMATED) 2021-05-22 13:43:00 Neil [facility] BASIC METABOLIC PANEL 2021-05-22 09:37:00 José Miguel Horn [facility] (NA, K, CL, CO2, GLUCOSE, Medica l Branch BUN, CREATININE, CA) CBC WITH DIFF 2021-05-22 09:37:00 José Miguel Horn [facility] GLUCOSE 2021-05-21 23:41:00 Ricki [facility] PROTEIN TOTAL 2021-05-21 23:41:00 Ricki [facility] LACTATE DEHYDROGENASE 2021-05-21 23:41:00 Candido Robison [facility] TROPONIN I 2021-05-21 23:41:00 Tameka Mcdaniels [facility] N-TERMINAL PRO-BNP 2021-05-21 23:41:00 José Miguel Horn [facility] POCT GLUCOSE (AUTOMATED) 2021-05-21 23:14:00 Neil [facility] POCT GLUCOSE (AUTOMATED) 2021-05-21 16:58:00 Neil [facility] POCT GLUCOSE (AUTOMATED) 2021-05-21 13:47:00 Neil [facility] XR CHEST 1 VW 2021-05-21 13:06:23 Gt [facility] VITAMIN B12, LEVEL 2021-05-21 12:51:00 Taina Del Real [facility] FOLATE 2021-05-21 12:51:00 Gt [facility] TROPONIN I 2021-05-21 12:51:00 Gt [facility] IRON PANEL 2021-05-21 12:51:00 Gt [facility] VITAMIN D, 25-OH 2021-05-21 12:51:00 Gt [facility] FERRITIN SERUM 2021-05-21 09:32:00 Gt [facility] TROPONIN I 2021-05-21 09:32:00 Gt [facility] HEPATIC FUNCTION PANEL 2021-05-21 09:32:00 Taina Del Real [facility] ([id number]) (ALB,T.PRO,BILI Medical Branch T,BU/BC,ALT,AST,ALK PHOS) BASIC METABOLIC PANEL 2021-05-21 09:32:00 José Miguel Horn [facility] (NA, K, CL, CO2, GLUCOSE, Medica l Branch BUN, CREATININE, CA) DIFF CONSULT 2021-05-21 09:32:00 Gt [facility] CBC WITH DIFF 2021-05-21 09:32:00 Kory [facility] N-TERMINAL PRO-BNP 2021-05-21 09:32:00 Gt [facility] POCT GLUCOSE (AUTOMATED) 2021-05-21 02:22:00 Neil [facility] XR CHEST 1 VW 2021-05-20 22:21:01 Ricki [facility] POCT GLUCOSE (AUTOMATED) 2021-05-20 22:14:00 Neil [facility] PH, BODY FLUID 2021-05-20 22:04:00 Ricki [facility] T.PROTEIN BODY FLUID 2021-05-20 22:04:00 Candido [facility] BODY FLUID DIRECT COUNT 2021-05-20 22:04:00 Nemesio [facility] CYTO PLEURAL FLUID 2021-05-20 22:04:00 Candido Robison [facility] LDH TOTAL BODY FLUID 2021-05-20 22:04:00 [facility] CULTURE 2021-05-20 21:50:00 [facility] BODY FLUID 2021-05-20 21:50:00 Ricki [facility] CULTURE(AEROBIC/ANAEROBIC Medica l Branch ) XR CHEST 1 VW 2021-05-20 19:13:56 Ricki [facility] POCT GLUCOSE (AUTOMATED) 2021-05-20 16:59:00 [facility] POCT GLUCOSE (AUTOMATED) 2021-05-20 13:25:00 [facility] LACTATE DEHYDROGENASE 2021-05-20 09:50:00 [facility] BASIC METABOLIC PANEL 2021-05-20 09:50:00 Holly Redding [facility] (NA, K, CL, CO2, GLUCOSE, Medica l Branch BUN, CREATININE, CA) PROTHROMBIN TIME / INR 2021-05-20 09:50:00 [facility] N-[facility]MINAL PRO-BNP 2021-05-20 09:50:00 [facility]cd[facility]iels [facility] POCT GLUCOSE (AUTOMATED) 2021-05-20 01:35:00 [facility] POCT GLUCOSE (AUTOMATED) 2021-05-19 23:08:00 Neil [facility] POCT GLUCOSE (AUTOMATED) 2021-05-19 17:39:00 Neil [facility] POCT GLUCOSE (AUTOMATED) 2021-05-19 14:04:00 [facility] BASIC METABOLIC PANEL 2021-05-19 11:24:00 [facility] (NA, K, CL, CO2, GLUCOSE, Medica l Branch BUN, CREATININE, CA) CBC WITH DIFF 2021-05-19 11:24:00 [facility] 2021-05-19 11:24:00 [facility]ameka [facility]iels [facility] HEPATITIS B SURFACE 2021-05-19 03:18:00 Samantha [facility] ANTIBODY [facility] HEPATITIS B SURFACE 2021-05-19 03:18:00 Samantha [facility] ANTIGEN [facility] POCT GLUCOSE (AUTOMATED) 2021-05-19 03:11:00 Neil [facility] POCT GLUCOSE (AUTOMATED) 2021-05-18 22:43:00 Neil [facility] POCT GLUCOSE (AUTOMATED) 2021-05-18 17:46:00 [facility]) 2021-05-18 17:04:00 Neil [facility] BASIC METABOLIC PANEL 2021-05-18 15:05:00 Holly Redding [facility] (NA, K, CL, CO2, GLUCOSE, Medica l Branch BUN, CREATININE, CA) POCT GLUCOSE (AUTOMATED) 2021-05-18 13:20:00 Neil [facility] DISCLOSURE AND CONSENT, 2021-05-18 06:01:00 Doctor Unassigned, N o [facility] MEDICAL AND SURGICAL Name Medical [facility] PROCEDURES POCT GLUCOSE (AUTOMATED) 2021-05-17 22:51:00 Neil [facility] POCT GLUCOSE (AUTOMATED) 2021-05-17 17:51:00 [facility] TRANSTHORACIC ECHO (TTE) 2021-05-17 15:04:37 Neil Thomas [facility] POCT GLUCOSE (AUTOMATED) 2021-05-17 14:14:00 Neil [facility] PHOSPHORUS 2021-05-17 10:03:00 William [facility] MAGNESIUM 2021-05-17 10:03:00 William [facility] BASIC METABOLIC PANEL 2021-05-17 10:03[facility] ([facility], K, CL, CO2, GLUCOSE, Medica l Branch BUN, CREATININE, CA) CBC WITHOUT DIFF 2021-05-17 10:03:00 William [facility] N-TERMINAL PRO-BNP 2021-05-17 10:03:00 Neil Thomas [facility] POCT GLUCOSE (AUTOMATED) 2021-05-16 22:34:00 William [facility] POCT GLUCOSE (AUTOMATED) 2021-05-16 17:41:00 William [facility] POCT GLUCOSE (AUTOMATED) 2021-05-16 13:39:00 William [facility] MAGNESIUM 2021-05-16 08:09:00 William [facility] TROPONIN I 2021-05-16 08:09:00 William [facility] BASIC METABOLIC PANEL 2021-05-16 08:09:00 William [facility] (NA, K, CL, CO2, GLUCOSE, Medica l Branch BUN, CREATININE, CA) LIPID PANEL ([id number])(TOTAL 2021-05-16 08:09:00 Neil Thomas [facility] CHOLESTEROL, [facility] TRIGLYCERIDES, HDL) CBC WITHOUT DIFF 2021-05-16 08:09:00 [facility] GLYCOSYLATED HEMOGLOBIN 2021-05-16 08:09:00 Thais Rich [facility] (A1C) Medical Branch PHOSPHORUS 2021-05-16 02:06:00 William [facility] TROPONIN I 2021-05-16 02:06:00 William [facility] POCT GLUCOSE (AUTOMATED) 2021-05-16 02:05:00 [facility] COVID-19 (ID NOW RAPID 2021-05-15 22:31:00 Dangelo Ibrahim [facility] TESTING) Medical Branch LAB ONLY COVID 2021-05-15 22:31:00 Ibrahim, [facility] INTERPRETATION [facility] XR KNEE <3 VW RIGHT 2021-05-15 22:12:44 Dangelo Ibrahim [facility] Medical [place] [address] CHEST PULMONARY 2021-05-15 22:00:00 Dangelo Ibrahim [facility] ANGIOGRAM Medical Branch XR CHEST 1 VW 2021-05-15 20:32:18 Singer [facility] LIPASE 2021-05-15 19:37:00 Singer [facility] MAGNESIUM 2021-05-15 19:37:00 Singer [facility] TROPONIN I 2021-05-15 19:37:00 Singer [facility] THYROID STIMULATING 2021-05-15 19:37:00 Neil Thomas [facility] HORMONE [facility] COMP. METABOLIC PANEL 2021-05-15 19:37:00 [facility]angelo [facility] ([id number]) [facility] CBC WITH DIFF 2021-05-15 19:37:00 Singer [facility] GLYCOSYLATED HEMOGLOBIN 2021-05-15 19:37:00 William [facility] (A1C) [facility] PROTHROMBIN TIME / INR 2021-05-15 19:37:00 Dangelo Ibrahim [facility] D-DIMER 2021-05-15 19:37:00 Singer [facility] N-TERMINAL PRO-BNP 2021-05-15 19:37:00 Dangelo Ibrahim [facility] HB ECG ROUTINE & RHYTHM 2021-05-15 19:13:17 Dangelo Ibrahim [facility] NOTICE OF PRIVACY 2021-05-15 18:55:45 Doctor Unassigned, No Univ [facility] PRACTICES [facility] CONSENT/REFUSAL FOR 2021-05-15 18:55:20 Doctor Unassigned, No [facility] HOSPITAL ADMISSION 2021-05-15 06:01:00 Doctor Unassigned, No Uni versity of [facility] Chest Single View 2019-02-17 00:00:00 [facility] sue Influenza Type A Antigen 2019-02-17 00:00:00 Mem orial Conger Screen Influenza Type B Antigen 2019-02-17 00:00:00 [facility] orial Juanito Screen Culture & Sensitivity 2019-01-25 00:00:00 Talisha Suarez Chest Pa And Lat (2 2019-01-25 00:00:00 [facility]) Anaerobic Blood Culture 2018-10-09 00:00:00 Dicksonhonorio arzate Juanito Aerobic Blood Culture 2018-10-09 00:00:00 Talisha Suarez Gram Stain 2018-10-09 00:00:00 [facility] Anaerobic Culture 2018-10-09 00:00:00 [facility] Plan of Care Planned Activity Planned Date Details Comments Source Future Scheduled 2031-07-[address] [facility] colon (procedure) [code = 688612466] Future Scheduled 2031-07-[address] [facility] Test 00:00:00 [facility] colon (procedure) [code = 570715057] Future Scheduled 2031-07-[address] [facility] Test 00:00:00 [facility] colon (procedure) [code = 998489388] Future Scheduled 2031-07-[address] [facility] Test 00:00:00 [facility] colon (procedure) [code = 268186036] Future Scheduled 2031-07-[address] [facility] Test 00:00:00 [facility] colon (procedure) [code = 005611424] Future Scheduled 2031-07-[address] [facility] Test 00:00:00 [facility] colon (procedure) [code = 952239551] Future Scheduled 2031-07-[address] [facility] Test 00:00:00 [facility] colon (procedure) [code = 276242526] Future Scheduled 2031-07-[address] [facility] Test 00:00:00 [facility] colon (procedure) [code = 143443561] Future Scheduled 2031-07-[address] [facility] Test 00:00:00 [facility] colon (procedure) [code = 046554557] Future Scheduled 2031-07-[address] [facility] Test 00:00:00 malignant [facility] colon (procedure) [code = 241986141] Future Scheduled 2023-04-[address] [facility] Test 00:00:00 malignant [facility]oplasm [facility] cervix (procedure) [code = 386043118] Future Scheduled 2023-04-[address] [facility] Test 00:00:00 malignant [facility] cervix (procedure) [code = 660921015] Future Scheduled 2023-04-[address] [facility] Test 00:00:00 malignant [facility] cervix (procedure) [code = 093742137] Future Scheduled 2023-04-[address] [facility] Test 00:00:00 malignant neoplasm [facility] cervix (procedure) [code = 249572196] Future Scheduled 2023-04-[address] [facility] Test 00:00:00 malignant neoplasm of [facility] cervix (procedure) [code = 858946442] Future Scheduled 2023-04-[address] [facility] Test 00:00:00 malignant neoplasm [facility] cervix (procedure) [code = 416842700] Future Scheduled 2023-04-[address] [facility] Test 00:00:00 malignant neoplasm [facility] cervix (procedure) [code = 322002009] Future Scheduled 2023-04-[address] [facility] Test 00:00:00 malignant [facility] cervix (procedure) [code = 164452125] Future Scheduled 2023-04-[address] [facility] Test 00:00:00 malignant neoplasm of [facility] cervix (procedure) [code = 521328457] Future Scheduled 2023-04-[address] [facility] Test 00:00:00 malignant neoplasm of [facility] cervix (procedure) [code = 821986495] Future Scheduled 2023-04-[address] [facility] Test 00:00:00 malignant neoplasm of [facility] cervix (procedure) [code = 044660337] Future Scheduled 2023-04-[address] [facility] Test 00:00:00 malignant neoplasm of [facility] Center cervix (procedure) [code = 893843838] Future Scheduled 2023-04-[address] Test 00:00:00 [facility] cervix (procedure) [code = 538505558] Future Scheduled 2023-04-[address] [facility] 00:00:00 [facility] cervix (procedure) [code = 036140673] Future Scheduled [address] [...] (2 of 2 - PPSV23)] Future Scheduled 2021-12-11 HEPATITIS B VACCINES Met [facility] Test 12:22:17 (1 of 3 - 3-dose series) [code = HEPATITIS B VACCINES (1 of 3 - 3-dose series)] Future Scheduled 2021-12-11 COVID-19 VACCINE (#1) [facility] Test 12:22:17 [code = COVID-19 VACCINE (#1)] Future Scheduled 2021-12-11 Screening for [facility] Test 12:22:17 malignant neoplasm of cervix (procedure) [code = 148330246] Future Scheduled 2021-12-11 COLONOSCOPY SCREENING [facility] Test 12:22:17 [code = COLONOSCOPY SCREENING] Future Scheduled 2021-12-11 SHINGLES VACCINES (1 Met [facility] Test 12:22:17 of 2) [code = SHINGLES VACCINES (1 of 2)] Future Scheduled 2021-12-11 BREAST CANCER [facility] Test 12:22:17 SCREENING [code = BREAST CANCER SCREENING] Future Scheduled 2021-12-11 INFLUENZA VACCINE Method [facility] Test 12:22:17 [code = INFLUENZA VACCINE] Future Scheduled 2021-12-03 INFLUENZA VACCINE (#1) [facility] Test 00:00:00 [code = INFLUENZA Medical Ce nter VACCINE (#1)] Future Scheduled 2021-12-03 INFLUENZA VACCINE (#1) [facility] Test 00:00:00 [code = INFLUENZA Medical Ce nter VACCINE (#1)] Future Scheduled 2021-12-02 HEPATITIS B VACCINES Met [facility] Hospital Test 19:59:35 (1 of 3 - 3-dose series) [code = HEPATITIS B VACCINES (1 of 3 - 3-dose series)] Future Scheduled 2021-12-02 COVID-19 VACCINE (#1) Me [facility] Hospital Test 19:59:35 [code = COVID-19 VACCINE (#1)] Future Scheduled 2021-12-02 [facility] 19:59:35 malignant neoplasm of cervix (procedure) [code = 608379250] Future Scheduled 2021-12-02 COLONOSCOPY SCREENING [facility] Test 19:59:35 [code = COLONOSCOPY SCREENING] Future Scheduled 2021-12-02 SHINGLES VACCINES (1 Met [facility] Test 19:59:35 of 2) [code = SHINGLES VACCINES (1 of 2)] Future Scheduled 2021-12-02 BREAST CANCER [facility] Test 19:59:35 SCREENING [code = BREAST CANCER SCREENING] Future Scheduled 2021-12-02 INFLUENZA VACCINE Method [facility] Test 19:59:35 [code = INFLUENZA VACCINE] Future Scheduled 2021-07-08 COVID-19 VACCINE (1) Met [facility] Test 18:18:56 [code = COVID-19 VACCINE (1)] Future Scheduled 2021-07-08 DIABETES: RETINAL EYE [facility] Test 18:18:56 EXAM [code = DIABETES: RETINAL EYE EXAM] Future Scheduled 2021-07-08 DIABETIC FOOT EXAM [facility] Test 18:18:56 [code = DIABETIC FOOT EXAM] Future Scheduled 2021-07-08 COLONOSCOPY SCREENING [facility] Test 18:18:56 [code = COLONOSCOPY SCREENING] Future Scheduled 2021-07-08 SHINGLES VACCINES (#1) [facility] Test 18:18:56 [code = SHINGLES VACCINES (#1)] Future Scheduled 2021-07-08 BREAST CANCER [facility] Test 18:18:56 SCREENING [code = BREAST CANCER SCREENING] Future Scheduled 2021-07-08 [facility] Test 18:18:56 malignant neoplasm of cervix (procedure) [code = 439758088] Future Scheduled 2021-07-08 INFLUENZA VACCINE [facility] Test 18:18:56 [code = INFLUENZA VACCINE] Future Scheduled 2021-06-26 COVID-19 VACCINE (1) Met [facility] Test 14:10:19 [code = COVID-19 VACCINE (1)] Future Scheduled 2021-06-26 DIABETES: RETINAL EYE Me [facility] Test 14:10:19 EXAM [code = DIABETES: RETINAL EYE EXAM] Future Scheduled 2021-06-26 DIABETIC FOOT EXAM [facility] Hospital Test 14:10:19 [code = DIABETIC FOOT EXAM] Future Scheduled 2021-06-26 COLONOSCOPY SCREENING [facility] Test 14:10:19 [code = COLONOSCOPY SCREENING] Future Scheduled 2021-06-26 SHINGLES VACCINES (#1) [facility] Test 14:10:19 [code = SHINGLES VACCINES (#1)] Future Scheduled 2021-06-26 BREAST CANCER [facility] Test 14:10:19 SCREENING [code = BREAST CANCER SCREENING] Future Scheduled 2021-06-26 [facility] Test 14:10:19 malignant neoplasm of cervix (procedure) [code = 516478899] Future Scheduled 2021-06-26 INFLUENZA VACCINE Method t Hospital Test 14:10:19 [code = INFLUENZA VACCINE] Future Scheduled 2021-06-26 COVID-19 VACCINE (1) Met [facility] Test 14:10:19 [code = COVID-19 VACCINE (1)] Future Scheduled 2021-06-26 DIABETES: RETINAL EYE [facility] Test 14:10:19 EXAM [code = DIABETES: RETINAL EYE EXAM] Future Scheduled 2021-06-26 DIABETIC FOOT EXAM [facility] Test 14:10:19 [code = DIABETIC FOOT EXAM] Future Scheduled 2021-06-26 COLONOSCOPY SCREENING [facility] Test 14:10:19 [code = COLONOSCOPY SCREENING] Future Scheduled 2021-06-26 SHINGLES VACCINES (#1) M [facility] Test 14:10:19 [code = SHINGLES VACCINES (#1)] Future Scheduled 2021-06-26 [facility] Test 14:10:19 SCREENING [code = BREAST CANCER SCREENING] Future Scheduled 2021-06-26 [facility] Test 14:10:19 malignant neoplasm of cervix (procedure) [code = 087164804] Future Scheduled 2021-06-26 INFLUENZA VACCINE Method ist Hospital Test 14:10:19 [code = INFLUENZA VACCINE] Future Scheduled 2021-06-26 COVID-19 VACCINE (1) Met [facility] Test 14:10:19 [code = COVID-19 VACCINE (1)] Future Scheduled 2021-06-26 DIABETES: RETINAL EYE [facility] Test 14:10:19 EXAM [code = DIABETES: RETINAL EYE EXAM] Future Scheduled 2021-06-26 [facility] Test 14:10:19 [code = DIABETIC FOOT EXAM] Future Scheduled 2021-06-26 COLONOSCOPY SCREENING [facility] Test 14:10:19 [code = COLONOSCOPY SCREENING] Future Scheduled 2021-06-26 SHINGLES VACCINES (#1) M [facility] Test 14:10:19 [code = SHINGLES VACCINES (#1)] Future Scheduled 2021-06-26 BRE[facility]CER [facility] Test 14:10:19 SCREENING [code = BREAST CANCER SCREENING] Future Scheduled 2021-06-26 [facility] 14:10:19 malignant neoplasm of cervix (procedure) [code = 423614263] Future Scheduled 2021-06-26 INFLUENZA VACCINE Method ist Hospital Test 14:10:19 [code = INFLUENZA VACCINE] Future Scheduled 2021-06-26 COVID-19 VACCINE (1) Met [facility] Test 14:10:19 [code = COVID-19 VACCINE (1)] Future Scheduled 2021-06-26 DIABETES: RETINAL EYE [facility] Test 14:10:19 EXAM [code = DIABETES: RETINAL EYE EXAM] Future Scheduled 2021-06-26 DIABETIC FOOT EXAM [facility] Test 14:10:19 [code = DIABETIC FOOT EXAM] Future Scheduled 2021-06-26 COLONOSCOPY SCREENING [facility] Test 14:10:19 [code = COLONOSCOPY SCREENING] Future Scheduled 2021-06-26 SHINGLES VACCINES (#1) M [facility] Test 14:10:19 [code = SHINGLES VACCINES (#1)] Future Scheduled 2021-06-26 BREAST [facility]CER [facility] Test 14:10:19 SCREENING [code = BREAST CANCER SCREENING] Future Scheduled 2021-06-26 [facility] 14:10:19 malignant neoplasm of cervix (procedure) [code = 911862073] Future Scheduled 2021-06-26 INFLUENZA VACCINE Method ist Hospital Test 14:10:19 [code = INFLUENZA VACCINE] Future Scheduled 2021-06-26 COVID-19 VACCINE (1) Met [facility] Test 14:10:19 [code = COVID-19 VACCINE (1)] Future Scheduled 2021-06-26 DIABETES: RETINAL EYE [facility] Test 14:10:19 EXAM [code = DIABETES: RETINAL EYE EXAM] Future Scheduled 2021-06-26 DIABETIC FOOT EXAM [facility] Test 14:10:19 [code = DIABETIC FOOT EXAM] Future Scheduled 2021-06-26 COLONOSCOPY SCREENING [facility] Test 14:10:19 [code = COLONOSCOPY SCREENING] Future Scheduled 2021-06-26 SHINGLES VACCINES (#1) M [facility] Test 14:10:19 [code = SHINGLES VACCINES (#1)] Future Scheduled 2021-06-26 BREAST [facility]CER [facility] Test 14:10:19 SCREENING [code = BREAST CANCER SCREENING] Future Scheduled 2021-06-26 [facility] 14:10:19 malignant neoplasm of cervix (procedure) [code = 086427327] Future Scheduled 2021-06-26 INFLUENZA VACCINE Method [facility] Test 14:10:19 [code = INFLUENZA VACCINE] Future Scheduled 2021-06-26 COVID-19 VACCINE (1) [facility] Test 14:10:19 [code = COVID-19 VACCINE (1)] Future Scheduled 2021-06-26 DIABETES: RETINAL EYE [facility] [facility] EXAM [code = DIABETES: RETINAL EYE EXAM] Future Scheduled 2021-06-26 DIABETIC FOOT EXAM [facility] Test 14:10:19 [code = DIABETIC FOOT EXAM] Future Scheduled 2021-06-26 COLONOSCOPY SCREENING [facility] Test 14:10:19 [code = COLONOSCOPY SCREENING] Future Scheduled 2021-06-26 SHINGLES VACCINES (#1) [facility] Test 14:10:19 [code = SHINGLES VACCINES (#1)] Future Scheduled 2021-06-26 [facility] Test 14:10:19 SCREENING [code = BREAST CANCER SCREENING] Future Scheduled 2021-06-26 [facility] 14:10:19 malignant neoplasm of cervix (procedure) [code = 874853226] Future Scheduled 2021-06-26 [facility]ACCINE [facility] 14:10:19 [code = INFLUENZA VACCINE] Future Scheduled 2021-06-26 COVID-19 VACCINE (1) Met [facility] Test 14:10:19 [code = COVID-19 VACCINE (1)] Future Scheduled 2021-06-26 DIABETES: RETINAL EYE [facility] Test 14:10:19 EXAM [code = DIABETES: RETINAL EYE EXAM] Future Scheduled 2021-06-26 DIABETIC FOOT EXAM [facility] Test 14:10:19 [code = DIABETIC FOOT EXAM] Future Scheduled 2021-06-26 COLONOSCOPY SCREENING [facility] Test 14:10:19 [code = COLONOSCOPY SCREENING] Future Scheduled 2021-06-26 SHINGLES VACCINES (#1) M [facility] Test 14:10:19 [code = SHINGLES VACCINES (#1)] Future Scheduled 2021-06-26 [facility] 14:10:19 SCREENING [code = BREAST CANCER SCREENING] Future Scheduled 2021-06-26 [facility] 14:10:19 malignant neoplasm of cervix (procedure) [code = [id number]] Future Scheduled 2021-06-26 INFLUENZA VACCINE [facility] Test 14:10:19 [code = INFLUENZA VACCINE] Future Scheduled 2021-06-26 COVID-19 VACCINE (1) Met [facility] Test 14:10:19 [code = COVID-19 VACCINE (1)] Future Scheduled 2021-06-26 DIABETES: RETINAL EYE [facility] Test 14:10:19 EXAM [code = DIABETES: RETINAL EYE EXAM] Future Scheduled 2021-06-26 DIABETIC FOOT EXAM [facility] Test 14:10:19 [code = DIABETIC FOOT EXAM] Future Scheduled 2021-06-26 COLONOSCOPY SCREENING [facility] Test 14:10:19 [code = COLONOSCOPY SCREENING] Future Scheduled 2021-06-26 SHINGLES VACCINES (#1) [facility] Test 14:10:19 [code = SHINGLES VACCINES (#1)] Future Scheduled 2021-06-26 [facility] Test 14:10:19 SCREENING [code = BREAST CANCER SCREENING] Future Scheduled 2021-06-26 [facility] 14:10:19 malignant neoplasm of cervix (procedure) [code = 456494601] Future Scheduled 2021-06-26 [facility]ZA [facility]ACCINE [facility] 14:10:19 [code = INFLUENZA VACCINE] Future Scheduled 2021-06-26 COVID-19 VACCINE (1) [facility] Test 14:10:19 [code = COVID-19 VACCINE (1)] Future Scheduled 2021-06-26 DIABETES: RETINAL EYE [facility] Test 14:10:19 EXAM [code = DIABETES: RETINAL EYE EXAM] Future Scheduled 2021-06-26 DIABETIC FOOT EXAM [facility] Test 14:10:19 [code = DIABETIC FOOT EXAM] Future Scheduled 2021-06-26 COLONOSCOPY SCREENING [facility] Test 14:10:19 [code = COLONOSCOPY SCREENING] Future Scheduled 2021-06-26 SHINGLES VACCINES (#1) [facility] Test 14:10:19 [code = SHINGLES VACCINES (#1)] Future Scheduled 2021-06-26 [facility] 14:10:19 SCREENING [code = BREAST CANCER SCREENING] Future Scheduled 2021-06-26 [facility] 14:10:19 malignant neoplasm of cervix (procedure) [code = 465886563] Future Scheduled 2021-06-26 [facility]ZA [facility]ACCINE [facility] 14:10:19 [code = INFLUENZA VACCINE] Future Scheduled 2021-06-[address] [facility] 00:00:00 (procedure) [code = [facility] [id number]] Future Scheduled 2021-06-[address] [facility] Test 00:00:00 (procedure) [code = [facility] [id number]] Future Scheduled 2021-06-[address] [facility] Test 00:00:00 (procedure) [code = [facility] [id number]] Future Scheduled 2021-06-[address] [facility] Test 00:00:00 (procedure) [code = [facility] [id number]] Future Scheduled 2021-06-[address] [facility] Test 00:00:00 (procedure) [code = [facility] [id number]] Future Scheduled 2021-06-[address] [facility] Test 00:00:00 (procedure) [code = [facility] [id number]] Future Scheduled 2021-06-[address] [facility] 00:00:00 (procedure) [code = [facility] Center [id number]] Future Scheduled 2021-06-[address] [facility] Test 00:00:00 (procedure) [code = [facility] [id number]] Future Scheduled 2021-06-[address] [facility] 00:00:00 (procedure) [code = Medical Center [id number]] Future Scheduled 2021-06-[address] [facility] Test 00:00:00 (procedure) [code = [facility] [id number]] Future Scheduled 2021-06-[address] [facility] Test 00:00:00 (procedure) [code = [facility] [id number]] Future Scheduled 2021-06-[address] [facility] 00:00:00 (procedure) [code = [facility] [id number]] Future Scheduled 2021-06-[address] [facility] Test 00:00:00 (procedure) [code = Medical Center [id number]] Future Scheduled 2021-06-[address] [facility] 00:00:00 (procedure) [code = [facility] [id number]] Future Scheduled 2021-06-10 COVID-19 VACCINE (1) Met [facility] Test 17:58:22 [code = COVID-19 VACCINE (1)] Future Scheduled 2021-06-10 DIABETES: RETINAL EYE [facility] Test 17:58:22 EXAM [code = DIABETES: RETINAL EYE EXAM] Future Scheduled 2021-06-10 DIABETIC FOOT EXAM [facility] Test 17:58:22 [code = DIABETIC FOOT EXAM] Future Scheduled 2021-06-10 COLONOSCOPY SCREENING [facility] Test 17:58:22 [code = COLONOSCOPY SCREENING] Future Scheduled 2021-06-10 SHINGLES VACCINES (#1) [facility] Test 17:58:22 [code = SHINGLES VACCINES (#1)] Future Scheduled 2021-06-10 BREAST CANCER [facility] Test 17:58:22 SCREENING [code = BREAST CANCER SCREENING] Future Scheduled 2021-06-10 Screening for [facility] Test 17:58:22 malignant neoplasm of cervix (procedure) [code = 992346765] Future Scheduled 2021-06-10 INFLUENZA VACCINE [facility] Test 17:58:22 [code = INFLUENZA VACCINE] Future Scheduled 2021-05-12 COVID-19 VACCINE (1) Met [facility] Test 00:12:28 [code = COVID-19 VACCINE (1)] Future Scheduled 2021-05-12 DIABETES: RETINAL EYE [facility] Test 00:12:28 EXAM [code = DIABETES: RETINAL EYE EXAM] Future Scheduled 2021-05-12 DIABETIC FOOT EXAM [facility] Test 00:12:28 [code = DIABETIC FOOT EXAM] Future Scheduled 2021-05-12 COLONOSCOPY SCREENING [facility] Test 00:12:28 [code = COLONOSCOPY SCREENING] Future Scheduled 2021-05-12 SHINGLES VACCINES (#1) [facility] Test 00:12:28 [code = SHINGLES VACCINES (#1)] Future Scheduled 2021-05-12 BREAST CANCER [facility] Test 00:12:28 SCREENING [code = BREAST CANCER SCREENING] Future Scheduled 2021-05-12 Screening for [facility] Test 00:12:28 malignant neoplasm of cervix (procedure) [code = 089276926] Future Scheduled 2021-05-12 INFLUENZA VACCINE [facility] Test 00:12:28 [code = INFLUENZA [...] Future Scheduled 2021-02-11 COVID-19 VACCINE (1) Met [facility] Test 13:55:42 [code = COVID-19 VACCINE (1)] Future Scheduled 2021-02-11 DIABETES: RETINAL EYE [facility] Test 13:55:42 EXAM [code = DIABETES: RETINAL EYE EXAM] Future Scheduled 2021-02-11 DIABETIC FOOT EXAM [facility] Test 13:55:42 [code = DIABETIC FOOT EXAM] Future Scheduled 2021-02-11 COLONOSCOPY SCREENING [facility] Test 13:55:42 [code = COLONOSCOPY SCREENING] Future Scheduled 2021-02-11 SHINGLES VACCINES (#1) [facility] Test 13:55:42 [code = SHINGLES VACCINES (#1)] Future Scheduled 2021-02-11 BREAST CANCER [facility] Test 13:55:42 SCREENING [code = BREAST CANCER SCREENING] Future Scheduled 2021-02-11 Screening for [facility] Test 13:55:42 malignant neoplasm of cervix (procedure) [code = 677736944] Future Scheduled 2021-02-11 INFLUENZA VACCINE [facility] Test 13:55:42 [code = INFLUENZA [...] 00:00:00 measurement [facility] Center (procedure) [code = 59055412] Future Scheduled 2020-08-[address] [facility] (procedure) [code = 58565279] Future Scheduled 2020-08-[address] [facility] 00[facility]00 measurement [facility] (procedure) [code = 17154598] Future Scheduled 2020-08-[address] [facility]00 measurement [facility] (procedure) [code = 51481571] Future Scheduled 2020-08-[address] [facility] 00[facility]:00 measurement [facility] (procedure) [code = 69721869] Future Scheduled 2020-08-[address] [facility] 00[facility] measurement [facility] (procedure) [code = 89194933] Future Scheduled 2020-08-[address] [facility] 00:[facility]:00 measurement [facility] (procedure) [code = 18802187] Future Scheduled 2020-08-[address] [facility] 00:[facility]:00 measurement [facility] (procedure) [code = 47908470] Future Scheduled 2020-08-[address] [facility] 00[facility]:00 measurement [facility] (procedure) [code = 08631326] Future Scheduled 2020-08-[address] [facility] 00:00:00 measurement [facility] (procedure) [code = 71105946] Future Scheduled 2020-08-[address] [facility] 00:[facility]:00 measurement [facility] (procedure) [code = 52644239] Future Scheduled 2020-08-[address] [facility] 00:00:00 measurement [facility] (procedure) [code = 85795962] Future Scheduled 2020-08-[address] [facility] 00:00:00 measurement [facility] (procedure) [code = 33754780] Future Scheduled 2020-08-[address] [facility] 00:[facility]:00 measurement [facility] (procedure) [code = 24745492] Future Scheduled 2019-11-[address] [facility] breast (procedure) [code = 920336635] Future Scheduled 2019-11-[address] [facility] 00:00:00 [facility] breast (procedure) [code = 125073907] Future Scheduled 2019-11-[address] [facility] 00:00:00 [facility] breast (procedure) [code = 392023855] Future Scheduled 2019-11-[address] [facility] 00:00:00 [facility] breast (procedure) [code = 743855530] Future Scheduled 2019-11-[address] [facility] 00:00:00 [facility] breast (procedure) [code = 115555283] Future Scheduled 2019-11-[address] [facility] 00:00:00 [facility] breast (procedure) [code = 806847676] Future Scheduled 2019-11-[address] [facility] 00:00:00 [facility] breast (procedure) [code = 458984008] Future Scheduled 2019-11-[address] [facility] 00:00:00 malignant [facility] of [facility] breast (procedure) [code = 973510379] Future Scheduled 2019-11-[address] [facility] 00:00:00 malignant [facility]oplasm of [facility] breast (procedure) [code = 216061057] Future Scheduled 2019-11-[address] [facility] 00:00:00 [facility] of [facility] breast (procedure) [code = 563578244] Future Scheduled 2019-11-[address] [facility] 00:00:00 [facility] breast (procedure) [code = 033290172] Future Scheduled 2019-11-[address] [facility] 00:00:00 [facility] of [facility] breast (procedure) [code = 154717516] Future Scheduled 2019-11-[address] [facility] 00:00:00 [facility] breast (procedure) [code = 277564394] Future Scheduled 2019-11-[address] [facility] 00:00:00 [facility] of [facility] breast (procedure) [code = 529561066] Future Scheduled 2018-06-[address] [...] 0-64 YRS (2 - PCV)] Future Scheduled 2015-08-[address] [...] 00:00:00 examination Medical Center (regime/therapy) [code = 993076079] Future Scheduled 1967-09-05 Urine screening for [facility] Test 00:00:00 protein (procedure) Medical Center [code = 160056710] Future Scheduled 1967-09-[address] DI[address] EXAM [facility] Test 00:00:00 [code = DIABETIC EYE Medical Center EXAM] Future Scheduled 1967-09-[address] [facility] 00:[facility]:00 examination Medical Center (regime/therapy) [code = 635860656] Future Scheduled 1967-09-05 Urine screening for [facility] Test 00:00:00 protein (procedure) Medical Center [code = 464256792] Future Scheduled 1967-09-[address] DI[address]YE EXAM [facility] Test 00:00:00 [code = DIABETIC EYE Medical Center EXAM] Future Scheduled 1967-09-[address] [facility] 00:00:00 examination Medical Center (regime/therapy) [code = 947662954] Future Scheduled 1967-09-05 Urine screening for [facility] Test 00:00:00 protein (procedure) Medical Center [code = 370668357] Future Scheduled 1967-09-[address] DIAB[address]IC EYE EXAM [facility] Test 00:00:00 [code = DIABETIC EYE Medical Center EXAM] Future Scheduled 1967-09-[address] [facility] 00:00:00 examination Medical Center (regime/therapy) [code = 003417504] Future Scheduled 1967-09-05 Urine screening for [facility] Test 00:00:00 protein (procedure) Medical Center [code = 773842576] Future Scheduled 1967-09-[address] DIAB[address]IC EYE EXAM [facility] Test 00:00:00 [code = DIABETIC EYE Medical Center EXAM] Future Scheduled 1967-09-[address] [facility] 00:00:00 examination Medical Center (regime/therapy) [code = 147024365] Future Scheduled 1967-09-05 Urine screening for [facility] Test 00:00:00 protein (procedure) Medical Center [code = 490201888] Future Scheduled 1967-09-[address] DIAB[address]IC EYE EXAM [facility] Test 00:00:00 [code = DIABETIC EYE Medical Center EXAM] Future Scheduled 1967-09-[address] [facility] 00:00:00 examination Medical Center (regime/therapy) [code = 132250999] Future Scheduled 1967-09-05 Urine screening for [facility] Test 00:00:00 protein (procedure) Medical Center [code = 355069187] Future Scheduled 1967-09-[address] DIABETIC EYE EXAM [facility] Test 00:00:00 [code = DIABETIC EYE Medical Center EXAM] Future Scheduled 1967-09-[address] [facility] 00:00:00 examination Medical Center (regime/therapy) [code = 374872563] Future Scheduled 1967-09-05 Urine screening for [facility] Test 00:00:00 protein (procedure) Medical Center [code = 279885208] Future Scheduled 1967-09-[address] DIAB[address] EYE EXAM [facility] Test 00:00:00 [code = DIABETIC EYE Medical Center EXAM] Future Scheduled 1967-09-[address] [facility] 00:00:00 examination Medical Center (regime/therapy) [code = 513310678] Future Scheduled 1967-09-05 Urine screening for [facility] Test 00:00:00 protein (procedure) Medical Center [code = 671619845] Future Scheduled 1967-09-[address] DIAB[address]IC EYE EXAM [facility] Test 00:00:00 [code = DIABETIC EYE Medical Center EXAM] Future Scheduled 1967-09-[address] [facility] 00:00:00 examination Medical Center (regime/therapy) [code = 185670049] Future Scheduled 1967-09-05 Urine screening for [facility] 00:00:00 protein (procedure) Medical Center [code = 833519268] Future Scheduled 1967-09-[address] DIAB[address]IC EYE EXAM [facility] 00:00:00 [code = DIABETIC EYE Medical Center EXAM] Future Scheduled 1967-09-[address] [facility] 00:00:00 examination Medical Center (regime/therapy) [code = 865140832] Future Scheduled 1967-09-05 Urine screening for [facility] 00:00:00 protein (procedure) Medical Center [code = 434167151] Future Scheduled 1967-09-[address] DIAB[address]IC EYE EXAM [facility] 00:00:00 [code = DIABETIC EYE Medical Center EXAM] Future Scheduled 1967-09-05 Urine screening for [facility] Test 00:00:00 protein (procedure) Medical Center [code = 961734983] Future Scheduled 1967-09-[address] DIAB[address] EYE EXAM [facility] 00:00:00 [code = DIABETIC EYE Medical Center EXAM] Future Scheduled 1967-09-[address] [facility] 00:00:00 examination Medical Center (regime/therapy) [code = 066730864] Future Scheduled 1967-09-05 Urine screening for [facility] 00:00:00 protein (procedure) Medical Center [code = 066257940] Future Scheduled 1967-09-[address] DIAB[address] EYE EXAM [facility] 00:00:00 [code = DIABETIC EYE Medical Center EXAM] Future Scheduled 1967-09-[address] [facility] 00:00:00 examination Medical Center (regime/therapy) [code = 171315818] Future Scheduled 1967-09-05 Urine screening for [facility] 00:00:00 protein (procedure) Medical Center [code = 020456689] Future Scheduled 1967-09-[address] DIAB[address]IC EYE EXAM [facility] 00:00:00 [code = DIABETIC EYE Medical Center EXAM] Future Scheduled 1967-09-05 Urine screening for [facility] Test 00:00:00 protein (procedure) Medical Center [code = 272019911] Future Scheduled [address] [facility] 00:00:00 malignant neoplasm of [facility] Center colon (procedure) [code = 310596451] Future Scheduled [address] [facility] 00:00:00 malignant [facility]oplasm of [facility] colon (procedure) [code = 719767531] Future Scheduled [address] [facility] 00:00:00 malignant [facility]oplasm of [facility] colon (procedure) [code = 129083242] Future Scheduled [address] [facility] 00:00:00 (combo) [code = CT Medical C enter Colonography (combo)] Future Scheduled [address] [facility] 00:00:00 malignant [facility]oplasm of [facility] colon (procedure) [code = 440333706] Future Scheduled [address] [facility] 00:00:00 malignant [facility]oplasm of [facility] colon (procedure) [code = 205063101] Future Scheduled [address] [facility] 00:00:00 malignant [facility] of [facility] colon (procedure) [code = 867201994] Future Scheduled [address] [facility] 00:00:00 malignant [facility]oplasm of [facility] colon (procedure) [code = 066713124] Future Scheduled 1957 Sigmoidoscopy [facility] Future Scheduled [address] [facility] 00:00:00 (combo) [code = CT Medical C enter Colonography (combo)] Future Scheduled [address] [facility] 00:00:00 malignant neoplasm of [facility] colon (procedure) [code = 562657524] Future Scheduled [address] [facility] 00:00:00 malignant [facility]oplasm of [facility] colon (procedure) [code = 938098187] Future Scheduled [address] [facility] 00:00:00 malignant [facility]oplasm of [facility] colon (procedure) [code = 763015249] Future Scheduled [address] [facility] 00:00:00 malignant [facility]oplasm of [facility] colon (procedure) [code = 384861579] Future Scheduled 1957 S[facility]oid[facility] Medical [facility] Future Scheduled [address] [facility] 00:00:00 (combo) [code = CT Medical C enter Colonography (combo)] Future Scheduled [address] [facility] 00:00:00 malignant [facility] of [facility] colon (procedure) [code = 015066137] Future Scheduled [address] [facility] 00:00:00 malignant [facility]oplasm of [facility] colon (procedure) [code = 908541514] Future Scheduled [address] [facility] 00:00:00 malignant [facility]oplasm of [facility] colon (procedure) [code = 852432390] Future Scheduled [address] [facility] 00:00:00 [facility] of [facility] colon (procedure) [code = 944516683] Future Scheduled 1957 [facility] Future Scheduled [address] [facility] 00:00:00 (combo) [code = CT Medical C enter Colonography (combo)] Future Scheduled [address] [facility] 00:00:00 malignant [facility]oplasm of [facility] colon (procedure) [code = 956032268] Future Scheduled [address] [facility] 00:00:00 malignant [facility]oplasm of [facility] colon (procedure) [code = 024336276] Future Scheduled [address] [facility] 00:00:00 malignant [facility]oplasm of [facility] colon (procedure) [code = 702863173] Future Scheduled [address] [facility] 00:00:00 malignant [facility]oplasm of [facility] colon (procedure) [code = 038001982] Future Scheduled 1957 [facility]oscopy [facility] Future Scheduled [address] [facility] 00:00:00 (combo) [code = CT Medical C enter Colonography (combo)] Future Scheduled [address] [facility] 00:00:00 malignant [facility] colon (procedure) [code = 271526528] Future Scheduled [address] [facility] 00:00:00 [facility] of [facility] colon (procedure) [code = 618617550] Future Scheduled 1957 S[facility]oidoscopy [facility] Future Scheduled [address] [facility] 00:00:00 (combo) [code = CT Medical C enter Colonography (combo)] Future Scheduled [address] [facility] 00:00:00 malignant [facility]oplasm of [facility] colon (procedure) [code = 693472662] Future Scheduled [address] [facility] 00:00:00 malignant [facility]oplasm of [facility] colon (procedure) [code = 336286923] Future Scheduled 1957 S[facility]oidoscopy [facility] Medical [facility] Future Scheduled [address] [facility] 00:00:00 (combo) [code = CT Medical C enter Colonography (combo)] Future Scheduled [address] [facility] 00[facility]00:00 malignant neoplasm of [facility] Center colon (procedure) [code = 404082059] Future Scheduled [address] [facility] 00:00:00 malignant neoplasm of [facility] colon (procedure) [code = 907493522] Future Scheduled 1957 S[facility]oidoscopy [facility] Medical [facility] Future Scheduled [address] [facility] 00:00:00 (combo) [code = CT Medical C enter Colonography (combo)] Future Scheduled [address] [facility] 00:00:00 malignant neoplasm of [facility] Center colon (procedure) [code = 391759115] Future Scheduled [address] [facility] 00:00:00 malignant neoplasm of [facility] Center colon (procedure) [code = 317339925] Future Scheduled 1957 Sigmoidoscopy [facility]] Medical [facility] Future Scheduled [address] [facility] 00:00:00 malignant neoplasm of [facility] Center colon (procedure) [code = 873490540] Future Scheduled [address] [facility] 00:00:00 malignant [facility]oplasm of [facility] Center colon (procedure) [code = 082974561] Future Scheduled [address] [facility] 00:00:00 (combo) [code = CT Medical C enter Colonography (combo)] Future Scheduled [address] [facility] 00:[facility]00 [facility] colon (procedure) [code = 522541442] Future Scheduled [address] [facility] 00:[facility]:00 malignant ne[facility] colon (procedure) [code = 037137342] Future Scheduled 1957 Sigmoidoscopy [code [facility]oscopy] Medical Cente r Encounters Start End Encounter Admission Attending Care Care Encounter Source Date/Time Date/Time Type Type Clinicians Facility Department ID 2021-07-06 [facility] Surgery [id number] SLE 14:33:12 HARSHINIE 2021-07-06 [facility] [id number] [facility] 00[facility]00:00 Encounter [facility] 2021-07-06 [facility] [id number] [facility] 00:00:00 Encounter [facility] 2018-09-18 Outpatient [facility] [id number] [facility] 08:26:04 2021-12-24 2021-12-24 Outpatient Nola [facility] [id number] Univers 15:40:00 15:40:00 FRACISCO [id number] [facility] 2021-12-08 2021-12-08 [facility] 1.2.840.114 [id number] Univers 00:00:00 00:00:00 Fracisco GARCIA 350.1.13.10 sammie dimas [place] 4.2.7.2.686 [facility] niall PROFESSIO [id number] Mo dical [address] 2021-11-27 2021-11-27 Outpatient R[facility]ER [facility] [id number] Univers 15:00:00 15:00:00 ROGER ARAUJO [id number] [facility] 2021-11-27 2021-11-27 Outpatient ROGER [facility] [id number] Univers 15:00:00 15:00:00 ROGER ARAUJO [facility] 2021-11-24 2021-11-24 [facility]phone [facility] [id number] Univers 00:00:00 00:00:00 Fracisco GARCIA 350.1.13.10 i ty of [place] [id number] Mo dical NAL 044 [facility] 2021-11-16 2021-11-16 [facility] 1.2.840.114 [id number] Univers 00:00:00 00:00:00 Fracisco GARCIA 350.1.13.10 i ty [place] [id number] Mo dical NAL 044 [facility] 2021-11-10 2021-11-10 Outpatient ROGER [facility] [id number] Univers 08:00:00 08:00:00 ROGER ARAUJO ity of [facility] 2021-10-21 2021-10-21 Orders Doctor KRZYSZTOF 1.2.840.114 [id number] Univers 00:00:00 00:00:00 Only Unassigned, DEEDEE 350.1.13.10 ity of [place] [facility] 4.2.7.2.686 Socrates as [id number] [address] 2021-10-20 2021-10-20 Telephone [facility] [id number] Univers 00:00:00 00:00:00 Brenda GARCIA 350.1.13.10 ity of [facility] [place] [id number] Mo dical NAL 059 [facility] 2021-08-10 2021-08-10 [facility] [id number] [facility] 00[facility]00 [facility] 2021-08-10 2021-08-10 [facility] [id number] [facility] 00:00:00 [facility] 2021-08-07 2021-08-07 Outpatient [facility] [id number] [facility] 00:00:00 00:00:00 NADYA 2021-06-07 2021-07-04 [facility] ER [facility] [id number] 19:44:00 14:34:00 [facility], [facility], [facility], [facility] Logan Russo 2021-06-07 2021-07-[address] [facility] [address] [facility] [id number] 19:44:00 14:34:00 [facility], [facility], [facility], [facility], Logan Yao 2021-06-07 2021-07-04 Inpatient ER LOGAN RUSSO [facility] Surgery [id number] SLEH 19:44:00 14:34:00 2021-07-03 2021-07-[address] [facility] [id number] 15:05:00 16:05:00 Angela Torres Medic [facility] 2021-07-03 2021-07-[address] [facility] [id number] 15:05:00 16:05:00 Angela Torres Medic [facility] 2021-07-03 2021-07-[address] [facility] [id number] 14:49:00 15:35:00 Event [facility] 2021-07-03 2021-07-[address] [facility] [id number] 14:49:00 15:35:00 Event [facility] 2021-06-30 2021-06-[address] [facility] [id number] 19:35:00 22:24:00 [facility] 2021-06-30 2021-06-[address] [facility] [id number] 19:35:00 22:24:00 [facility] 2021-06-26 2021-06-[address] [facility] [id number] 07:30:00 11:59:00 [facility] 2021-06-25 2021-06-[address] [facility] [id number] 23:59:59 23:59:59 Event [facility] 2021-06-25 2021-06-[address] [facility] [id number] 23:59:59 23:59:59 Event [facility] 2021-06-18 2021-06-[address] [facility] [id number] [facility] 07:58:00 14:52:00 [facility] 2021-06-18 2021-06-[address] [facility] [id number] [facility] 07:58:00 14:52:00 Event Nikolay [facility] 2021-06-18 2021-06-[address] [facility] [id number] 08:00:00 14:45:00 [facility] 2021-06-18 2021-06-[address] [facility] [id number] 08:00:00 14:45:00 [facility] 2021-06-16 2021-06-[address] [facility] [id number] 11:58[facility]00 13:03:00 [facility]-06-16 2021-06-[address] [facility] [id number] 11:58:00 13:03:00 [facility] 2021-06-16 2021-06-16 Surgery Donte, [facility] [id number] 10:30:00 12:00:00 [facility] 2021-06-16 2021-06-16 Surgery Donte, [facility] [id number] 10:30:00 12:00:00 [facility] 2021-06-09 2021-06-09 Outpatient BCM BCM [id number] [facility] 00:00:00 23:59:00 [facility] 2021-06-07 2021-06-07 Outpatient BCM BCM [id number] [facility] 19:44:00 23:59:00 [facility] 2021-06-07 2021-06-[address] [facility] [id number] 00:00:00 00:00:00 [facility] 2021-06-07 2021-06-07 Travel [facility] [id number] [facility] 00:[facility]00 00:00:00 [facility] 2021-06-07 2021-06-[address] [facility] [id number] 00:00:00 00:00:00 [facility] 2021-06-07 2021-06-07 Travel [facility] [id number] [facility] 00:00:00 00:00:00 [facility] 2021-05-26 2021-05-26 Telephone [facility] [id number] 00:00:00 00:00:00 [facility] 2021-05-26 2021-05-26 Telephone [facility] [id number] 00:00[facility]00 00:00:00 [facility] 2021-05-26 2021-05-26 Transition DAKOTA Bennett 1.2.840.114 [id number] Univers 00:00:00 00:00:00 of Yari DE LA ROS[place] 350.1.13.10 it y of [place] [id number] [facility] [address] 2021-05-25 2021-05-25 Transition DAKOTA Bennett 1.2.840.114 [id number] Univers 00:00:00 00:00:00 of Yari [place] 350.1.13.10 it y of [place] [id number] [facility] [address] 2021-05-15 2021-05-22 [facility] Dangelo Ibrahim [facility] 1.2.840.1 [id number] Univers 13:03:00 21:15:00 Encounter Neil Thomas 350.1.13.10 ity of [facility] [place].2.[place] [id number] [facility] 081 Branch 2021-05-15 2021-05-22 Inpatient X WILLIAM [facility] NILESH [id number] Univers 13:03:00 21:15:00 NEIL ity of [facility] 2020-08-28 2020-08-[address] [facility] [id number] 00:00:00 00:00:00 Only [facility] 2020-08-28 2020-08-[address] [facility] [id number] 00:00:00 00:00:00 [facility] 2020-08-06 2020-08-[address] [facility] [id number] 00:00:00 00:00:00 [facility] 2020-08-06 2020-08-[address] [facility] [id number] 00:00:00 00:00:00 ion [facility] 2020-08-06 2020-08-[address] [facility] [id number] 00:00:00 00:00:00 [facility] 2020-08-04 2020-08-[address] [facility] [id number] 00:00:00 00:00:00 [facility] 2020-07-28 2020-07-28 [facility] [id number] 00:00:00 00:00:00 [facility] 2020-07-28 2020-07-28 Abstract Freddie, [facility] [id number] 00:00:00 00:00:00 [facility] 2020-07-25 2020-07-25 [facility] [id number] 00:00:00 00:00:00 [facility] 2020-07-24 2020-07-24 [facility] [id number] 00:00:00 00:00:00 [facility] 2020-07-24 2020-07-24 Documentcalli [facility] [id number] [facility] St 00:00:00 00:00:00 [facility] 2020-07-24 2020-07-24 Abstract [facility] [id number] [facility] 00:00:00 00:00:00 [facility] 2020-04-16 2020-04-[address] [facility] [id number] 12:56:21 13:26:21 Visit Pascale Garcia 350.1.13.10 [place] 4.2.7.2.686 Carmelina [id number] [address] 2019-02-18 2019-02-[address] [id number] Memoria 03:46:00 22:27:00 [facility] 2019-01-26 2019-01-26 Departed Fidel Leonardo. [id number] Memoria 01:39:00 06:10:00 [facility] EMERGENCY DEPT 2018-10-09 2018-10-[address] [id number] Memoria 09:44:00 21:45:00 Inpatient [facility] [place] Patsy torres 2018-01-22 2018-01-22 Emergency E SE SE [id number] 16:17:00 16:17:00 [facility] Results Test Description Test Time Test Comments Results Result Comments Source AFB culture + smear (non-sputum) 2021-08-07 10:55:07 Test Item Value Reference Range Interpretation Comme nts Result (test code = 6463-4) No acid-fast bacilli isolated in 42 day s AFB Smear (test code = 57556-6) No acid fast bacilli seen [facility]2021-08-07 10:55:07 Test Item Value Reference Range Interpretation Comments Result (test code = No acid-fast bacilli 6463-4) isolated in 42 days AFB Smear (test code = No acid fast bacilli 76732-2) seen [facility] (NON-SPUTUM)2021-08-07 10:55:07 Test Item Value Reference Range Interpretation Comments CULTURE (BEAKER) (test No acid-fast bacilli code = 1095) isolated in 42 days AFB SMEAR (BEAKER) No acid fast bacilli (test code = 994) seen Fungus culture + [id number] 01:03:45 Test Item Value Reference Range Interpretation Comments Result (test code = No fungus isolated in 6463-4) 28 days Fungus Smear (test No fungi seen code = 1406) [facility] + [id number] 01:03:45 Test Item Value Reference Range Interpretation Comments Result (test code = No fungus isolated in 6463-4) 28 days Fungus Smear (test No fungi seen code = 1406) [facility] + [id number] 01:03:45 Test Item Value Reference Range Interpretation Comments Result (test code = No fungus isolated in 6463-4) 28 days Fungus Smear (test No fungi seen code = 1406) [facility] + [id number] 01:03:45 Test Item Value Reference Range Interpretation Comments Result (test code = No fungus isolated in 6463-4) 28 days Fungus Smear (test No fungi seen code = 1406) [facility] + [id number] 01:03:45 Test Item Value Reference Range Interpretation Comments CULTURE (BEAKER) (test No fungus isolated in code = 1095) 28 days FUNGUS SMEAR (BEAKER) No fungi seen (test code = 1406) TISSUE [id number] 12:44:09Surgical Pathology Report Case: [id number] Authorizing Provider: Logan Russo MD Collected: 06/18/2021 11:41 AM Ordering Location: [facility] Received: 06/19/2021 03:44 PM PERIOPERATIVE SERVICES Pathologist: Tom Paige MD Specimen: Mass, MITRAL VALVE MASS- for MICROBIOLOGY then pls send to Pathology Special stains for acid fast bacilli are negative. Gram stain and GMS stain highlight possible bacterial aggregates. Correlation with microbiological studies is required for further subc lassification. Addendum electronically signed by Tom Paige MD on 07/09/2021 at 12:44 PMA. HEART, MITRAL VALVE, DEBRIDEMENT AND REPAIR:FIBRIN, ACUTE INFLAMMATORY AGGREGATE AND CALCIFICATION.SPECIAL STAINS FOR INFECTIOUS ORGANISMS PENDING, ADDENDUM TO FOLLOW. CORRELATION WITH MICROBIOLOGICALSTUDIES IS RECOMMENDED. Signing Pathologist Direct Phone Line: [phone] signed by Tom Paige MD on 06/24/2021 at 3:29 [id number], [id number] valvePerformed.Theinterpretation of this case included the use of immunohistochemistry or special stains.BLOCK A1- BROWN AND NORMA JOHNSON, AFBControl Slides Examined: In-house known positive controls were evaluated along with the test tissue. These control slides run alongside of the patients sample show appropriate staining. Internal positive and negative controls when available are evaluated Immunohistochemistry technical testing was performed at [facility], Pathology Laboratory where it was developed [...] qualified to perform high complexity clinical laboratory testing.[facility], Department of Pathology, [address] [place] [address], [facility], Department of Pathology, [address] [place] [address], [facility], Department of Pathology, [address] [place] [address] 360[address], a. Received in formalin labeled with the patient's information and "mitral valve mass" is a 1.5 cm in length by 0.3 cm in diameter robert-pink tissue, which is submitted in toto in cassette A1.MP (resident)Tissue [id number] 09:50:09 Test Item Value Reference Range Interpretation Comments Case Report (test code Surgical Pathology = 104) Report Case: [id number] Authorizing Provider: Angela Loco Collected: 07/03/2021 03:04 PM MD Brian Ordering Location: [address] Received: 07/06/2021 09:08 AM Service Pathologist: [...] clip x 1 DIAGNOSIS (test code = [id number] 3220) FuZzEwMzNcZnRuYmpcdWMx IHtccnRmMVxlcGljOTYwMV vwlzQyXBXehLSbC3Jvmdwg FAuoYX3hAD2xlCumjLUpnU ZzYLWdDvJcy2qab661fYOc w0diFMWRcyipoMd5bSuxE8 4br3W3LmruT29ebSJwNZC8 SWCuXTPpzOLnOYCbSAN8BL LvgYJtA1vgTZQoBT2uhjaa UZloIAdfVNFzgSU8DQVynC GwP3StVZKnZFejSVHfyko4 BzLcHm4aaQBuxHwyVOgjTK HnJULdDNzzBAUnXiXpNY7t M33XC81lFJSLY0NSCSNUFA lNVKVVSO3AC3r1SUZwacVs LSAgVFVCVUxBUiBBREVOT0 1JOGRwkeiyONKiHk5bD20P P94wBRAGF6qUW8AAF8ARAK kEVxQOP8bZOGowPtlTJAXL JyxlLDZkDU8iHH2VTKBETI wAYKETVLpFDB4RBhEOTdQM QUDMLHTGRIQMSS9SZINtaE FyICAtICBORUdBVElWRSBG Z8TaAHwEFQ3BAoSNVXLMJN EVMKWBQZIaA4ZnGKDCWIxF SW3MENexNYMxgVCdAUNsPE GSWN9PCRZJBWwLJF3GS9UT LoMXOadtJD1IKCSdIAVNN0 BTWTpccGFyICAtICBNVUxU SVBMRSBGUkFHTUVOVFMgT0 TpCHGIKFvXYwMVJPCRC52V XHBhciAgLSAgTkVHQVRJVk AhEs3MSXgAK3faR6NUPCRg NVsJYQyNN1pYJT3VAE6LAQ gXGuEUJ4lhzOXnGTAvdwPw vVYuUIZkDEZCFD4GOJGRNg TKB3ASAwFKNTNLMFhHIHPA EJ5AO8c9WHAtcaWqVUQiUS ISGGxWOZUjGyUAJ63XTbJB OX1YYAWRLpMKDUTmCNGNBf 7JHPbtIHJeLI4zKJ5IG5XC SVZFIEZPUiBISUdILUdSQU DXJYBJM3BJJJMXUUIZEwPM LNxVB78QBfQRGLAjuq97BQ D8CaBqi8I3XGZ7XNSbBPGm y1blKXXerCYjZpJuCiUoXp CgLrhefEZvJQPvWmFym6rg x555bFDkc1dwARIwHqI3yF UrDLRybHCiY225WTZjWIsq v5edm0QnFBMpgZVld7J8SH HIxizkbZu5rMkxX15gk2Q4 IfszB9axSMQqOGExT7TcQK 2yAXEaEbh4UNS7IDH9DSGp BJMxW4NnTT7uICErnVWpPI l5c2zhrHyoZRJhISV0d9hk HZfxigFfZC3lwx9cqHq6s3 xjczEgRGVmYXVsdCBQYXJh M4ZndPlzRd4spCs0qOfsUn ldUNT4Jls5XN5vnr30wqa0 sXwdAPNczawcVcZ5WMrjOE SzjaelMQc4YMrcBFEueAA7 HQFuaZQyQ2DcAHIgPM4oaq p8JBG9WTblMONxTuZ2EEDx bNPhPDIudCyaWIjff076BY D8PfHqXC0pL2Txp3L4lF7u aXRcZGVmdGFiNzIwXGZvcm 4giOXvPHprt8VsEZH4xwO3 pPNppPQsRESaYpN5FKnwED 2grf59KMZdIWV9xt2iyNRd zLnelaKivWOgVXwvA8HxLW Hbd643XJFeH1PuFMVff5L1 odCbOiFkJOAurYD5xxM7BM RiSJ9aeokdt4kuVDlsGYug NWUuluF9tfD1UZYnyJTlI5 SqsR5xULFbQW0byqbgu2vu NGC9ZQhpCIEpUDI8NcViIP Xhr7Kxycv2UmMex8BliBQx HXjtH59bq415NLMomgQeZ2 xwbGFpblxwbGFpblxmMFxm whM8OJWjXCfzjubgMSDbPO ueO4plOoUdENGfnGyvQYwp k5ZgQWVeXPRiJiFrmXWwXQ DbAby8QVEdoBVeHVJkIeUs W1rajmvzLqWCDVOxp4yjL3 sghDPXiNSlG7CfDWvwxwZm MQhkMWfjDBPwCAZ2HQ7eEH JlEKZggf28 CPT Code(s) (test code v1xwcTBuVTMuzHE4IxKrVG = 3357) Ozw6igd4UigMYczFFeAYvw yMRiyrCnyw42wXS1qK55TO 6qBTSjPcW0FZGbdcQ5Dgj3 JEFwKQNmbNAiA171w6nlj6 sqzvDfpPZ0dNbuGCDmkmev ApP2PTbrOIXapykiMQe8DR yqUYPwkCK5XQQgyZMlW2Iw MGHsUJ4bzju3KGC3PNusWP MoJzR9PWZpvREzDCNfvVaw PQkfl356HYM8KeVfGRKmfu JwoOpkuC9wNfHqQEA9NQZe MQw7HYIugk0= CLINICAL HISTORY (test o5vgzXUbZIOweXB9XfKrJD code = 3356) Bsz9lbo1HemKBgvVKqOGop uBKkscCepd21nDU4eS22HU 6zVUCqBxK4LCDebaM2Inm5 TZNrPWPqjAEbZ710s1fbn6 nexzKahGX7DMMaVQOlY6Js TT8sINSncLPbC02lyIWpRX W3UILuPMQhmOJhZVYdNNM4 HDZprZGwV6wcBJQuOX3qsc yfFVlvAAkaUXAqdWK2OKNa wZKmN5RgEVElEPngEKBwgt k7GoRkOo9zdNZmaCjsLQzh YXJkXHJpMVxwbGFpblxmcz PwSSDtBMRKyr9pNYEyZjht bAAdC1pbSF1qvWsdLEX0xq AcEHCsMsxnGXNkfp1rAIBo VafffFAvH0yeEY0zoXlhOR J1fFEqJGMijf8= GROSS DESCRIPTION (test a4iumJJhODLhxAZODHEcBo code = [id number]) whhnWxKYCegMSgZ4Rmqvkd JQrhOR3uBA2hqIwgfAEwrV NfMB3QKNRqTwCsLKNgyUGp pcZtBfKlXHVwfIOwuTJ5AH SjBU7qdqfbKKcjYPecGWYx xiY8EGDjjIGnZ2SnCGZeVN 7uupdlBLB7AQegmY9vijFN MddfZe5lsSRlkRqsKqSmLh NoYXJzZXQwXGZuaWwgQXJp PSh7vP5RVpruZ33kv9B7Sn p5PTXaAFVnE0RoXY8iSEAu eSYrW92IDeilLZY2PZRYBr cmUJLyVA9Ly4xzLRGurVNt PNQ0AAfupEDzMOZqJIDpHV v6FOLhEGfizHEbHG4lvNqf NmyhbAqqx3BfkRNtOJciXB EeQOReRAptSLSmRV1ZZsNz TZvUYiviTZdvBxT1RXy5RA DZApFwPgDgRatuIYD5HGoj GYw0SIw3FCfODkE0EAD1UH ZuRZhgUKObFawsHRa9AUBw XFxmIEFyaWFsIFxcZmwgXF sdS75pfNabwU9wJE7kBY2k kLWxGPPtoV0tAD6hE7VzwQ 0uXHBhciANClxlcGljTmVz dERvYzEgDQpcbHRycGFyXG xpbjBccmluMCANClxsdHJj aFxjZjFcZnMyMCBSZWNlaX QuEVLxbdNzb3AaOLtmxvJi YWJlbGVkIHdpdGggdGhlIH KreFlynbUbK6V0imCyHK8k ODNxIISrW5AsKUWpH56aXH ZrgP4zFDQgOB0qLId6PKVw ZHQhHmgupB1dmWBoBJPlzP 8iLFLgT1ZyXuKqp60ogTU7 dmObNlKoGHUerc2fdR5jSU Muin7sOJJsc2Q7TMMgm4V7 UPGdFV39CTesPN9yXPvfLS 4xIGNtLCAwLjYgeCAwLjMg kMBgAgMxK38tAvVpUWscNG OpIINnrSOuLPpkQEO9Pv3b zSGgYVVmxzN9v8LpDMpdQC DfIkmjOHQsUZqtnGTnZM3Y EBMiUWtbqzOsSO7GTCOgEX xnGXIkpQCGWZF3YX2nGCsh oLXctduvWBAcP7PjZ5Lwys OruHQyKBCxnjMqw5zhCBN7 XHNsbXVsdDBcZnMxNlxwYX Z1TFl4YEpmFCIaB4YfX1Xk ODaoEYQ5GFAwXgLeBTVoYD XRGwGwZbYtXsD9Ulr9LnIi WQa3EXvoN9OZIBWcHBP7OL M7CGQ5QuM8OUp7HJSXYx5h DQJhPZU2TeP5BDD3QiA3CX xcdCAyIFxcZiBBcmlhbCBc GXNjSMbnzhU3BVYqRQZbiS koxA5dUv6jTU0alQYwKEXs uD3oQF4iWybtnEHvOKOgVX 0ucG8oYursCRSjSQboAIMh O48ey3DJu0RuRC8OKKr0ha UypitqmQ7eRDRyleGiIPyf rDMdD1xoD2WiEVYzKlDsVz MzVFu7FRQbyU3kGv1vwDRk gA0nfDHoXZuqUNF1cOKsEY QqKMRlGHLjTB21ZYvBOPPj bmFtZSwgbWVkaWNhbCByZW NvcmQgbnVtYmVyIGFuZCBc nIzhMtPiKIw5W9BymHlgWJ Zyx9dylf6bhOqgzHOvc1Jj akGkhyvsICKcEVVos53ddC E1niQdLvNhlOa5zGNkIAX5 XE4rdLrvnrnfqPLcGSc0xD TgZTXwPwPteJdou4HaAIbn LjQgeCAyLjEgeCAwLjQgY2 6ihQ0eZFawlaQoKSTrMA4a TNAmGRKuaIJrdC1gfgGhup JhtYNfoJL1MBJpoN1eaM10 qeXfekFHVY0wdLZfZG5DMI BhciANClxjZjBcZnMyMiAN ClxwbGFpblxlcGljTmVzdE YdLbLewZopqI05WSYqoQEh EUC6VW5pQTDuhuspDSDpPS PrKPU1WXymmP91gDWfANXb FJVqhPKobV9Fe4jaJORbiB LyFCM4UMkjpLYyDUTvZZEp NYzoEmPgQ6LFUQDwJlRpKH P1FQYxQGq2RLx7QG1TYrIh MOFyMILaOiO8JJPnAZi5XN nkCL9BKCF6Myg7NVU5BKW1 NTMyOCBcXHQgMiBcXGYgQX HrTSptTAdcwQXyVZ5zuWkg vpJ9UYYkGIumHWTrWSIduB zyMSJHa8afbvLyEIOiT7f4 X8TmD6SoJNreLu3pbGAxZV 5BCKGvpGYOBWZ3AG8xTSND ClxsdHJwYXJcbGluMFxyaW 4wRI0BWFd5osFjVOMxHIll uvIcMFUkO5CkbjNlTUtxLK Dufv8cuZefPRowKeHuFEHu l2o8lIR1wOMkdQC5wMYjbE wpUnOePT2mnIBrCG6bKPjh DRfsjeIev2IrUP39cXGvts ScqlZfHRV2DkSdTVylGNWy a6x5xDloF80dd12gpsdflV HiZRHgUQ1blL1eNyUdizEt F56eb4aybEEwl1ZpmURqbR lwbGUgdGFuLXBpbmssIHBl AZRgJ2ByMWHxXWYpz9O6KE Iua6R6MIVmKi93NSidKe5v CMalNM80KZDkLGkjLARvN5 FjA6F1DPduHUMOjIJgw9Ue J2nzLU3yoWSci2YssQa7yH KiBWqtPZVhrL7ooY1rEwZk XHBhciANClxwYXIgDQpcY2 IwLFIyIqWoZTnzpDogqC1o LWYzE62iq8BBa1EbBJLdDS woq5faxHhvp8CkkXWmLDyv WRSleFCtEGcewT7iItIvl3 kckPp1WFlshmG8DKEaur5Z OokmFzokdHuwe9UwdDFaUC jkIBKzNMCoPCkgPFIzRD1B KfGfUGfETdrrTAynYbZ2FP n3CDBYAeBuWfWsPtekPIR6 BmEnKOi6SAo2IHcNXwN9ZI I8QJSpXdDgAFNaCiomGYv4 IDIgXFxmIEFyaWFsIFxcZm lkVKhdB09lXmEdAcfqwACw anISAjPBw8i6qSlgL25qg6 0vVZBSrgGfs2ZsiyOuDgzz KESjJRxhWWAwJ05yf8RYr7 RnTF6KRMd5kbQbftikmN1m NOYitxBqIKlgtFIkX9pxD1 VpCINdAzLrNzGjICa8IWNi dV3nIr3hzRDlsH6muCEjHC ivWOB7zUHuMVFcENElHDYt IN61TEyONFMdheHlYKggeA VkaWNhbCByZWNvcmQgbnVt YmVyIGFuZCBcdTgyMjAgXC c3S6DwqHvsZLDtg2lqyu80 fqSmi0JjcrOcZOAtaEVsIN 6rAsfceW36QHSoJHCmOSGg hSfqFQgnSvIgcqJlZ26bx7 kumGAad0XwcBChmVhtzYUq dGFuLXBpbmssIHBlZHVuY3 BrSFJsMAVbf5D7IXCxb8V0 PHJqDk9lGTasHp6lGGpfGK 06WAJtKOlgCVHdM1WbP2T4 TFztTKVQcHMrg8AgE9sgDM 0ijCVhw5FeyDm1jPBtPOlz MMFbiD6xoT8jTSYrXAOeMU IxizCZDrqbZIOnDSsJi9Gw pExtMQIgU8o7j89jA5zpvM RzSRYSKLH8nMKktzXyjPAy HD9EXUYpfxMBLcunIpWpFq MyMiANClxwbGFpblxlcGlj PvNqdVNpCpOehVhojL52LM JbqLGfUOD8IM2nLUCkkkzu WIGeCSXzKEV0KBxmgF93iZ ZxIFJpNRJlpYValI0KMCFk LYV8PBzufP99vKSjTQ8SBP PhCDZ0PYLocMBtKHW7UU4a fQ0KfQ== MICROSCOPIC DESCRIPTION i3cfrPZmOBJefSC7VoWcNJ (test code = 3371) Dwg6yys9TkzXNikRFfGUpy gESuvhGijn30zJF1tV15GR 0cNVXhJvE0TGKxweO8Qzx3 IBWrDKDvbONoP576r2qrk8 ssubUzeYG8lWrxPIApliuh PeC3XBypUMLdrshjFYn8KK lpLNUwzZI6JRAylRLpA8Zv BYNdYX8bxdz7LGW5GOobTV EcBvB2BNByiKSrMZPmwJwh PLbby314PVH9VqRnKMFvxd WfzXbrpE2aRkLlXOWNLECw y7UyJFXuUSBptgigLKZgIY Bhcn0= [id number] 09:50:09 Test Item Value Reference Range Interpretation Comments Case Report (test code Surgical Pathology = 104) Report Case: [id number] Authorizing Provider: Angela Loco Collected: 07/03/2021 03:04 PM MD Brian Ordering Location: [address] Received: 07/06/2021 09:08 AM Service Pathologist: [...] clip x 1 DIAGNOSIS (test code = [id number] 3220) FuZzEwMzNcZnRuYmpcdWMx IHtccnRmMVxlcGljOTYwMV kaouNqJZNuzLJoQ5Sirroh YMinRT1jGQ6rpGjxnAFjoO PfLDFbVuGnd1pnj844lIKg h3ktAQPDfvhbzVc1nOhgA4 6eo5X0MhuzI16ynHIiYIN6 ZOPpTNXeeATzBXAxYNL7AY VfwXFsS7ejEFBiRK7lazzd LTwzEQeiSXRltHH0LSGdsT ZsI4EkSGWcNIksYRHemla9 PrXvAt6xvSTitNreARzuLE PwPEKqETasLGUtTzRiEO3f R91HF93hADZOS5WLIQRCSU iGBIVNPG4CK2m1FBEqwlDm LSAgVFVCVUxBUiBBREVOT0 1FLGOpxtlaXRUnDm3bT31Z O61eJPCPE0sSF4IYV5GUJS sBNsCGO4hNRMniXenJUIOM QaibSQGjOZ7wGV4MTVBOHA yDOYMGEVuECD3PYcQIDuYK DZDPLEQZLNIEMD4DBIOudW FyICAtICBORUdBVElWRSBG X7PtONhBYO0MEzUOKDUTTM VHJVKQMWOgJ0VoQVZYFIcG TW6OQLmuISDcrSLdTWZhVK AMRC2XICFEMVfSDM5KO8HE XpZQUbgtGE8MJUGlVTBIL9 BTWTpccGFyICAtICBNVUxU SVBMRSBGUkFHTUVOVFMgT0 IdHMITQMpSIfSLESNFD29T XHBhciAgLSAgTkVHQVRJVk CbUm0CAHmAI9ehW8DQJPXb NBgKFIoEW5mNLK9PQG4BPC zQLrZIW4nbaNAyZCTetbCh sLWjXTKvZWDWAG1HKLPOJm JYX3WVSiBBZUBAQAeRCGHS LB0TL2l3ZTFslsGiBZMaEQ QTILjFTKEhAeXWM62CFnYE ES1NQJSQGwCJINItAWDZHl 4AKPlhMJScBV7oXC0NW6BN SVZFIEZPUiBISUdILUdSQU LGZKEYH7AVBJVQOPKRDnUG EExNT05OMrCHKVOyau73KN K4CnWyb4J0ZDA6KIOvXNHy x5beDKKutVNsVeVoMaBmDv YnAztisKFwRQUnIdXuw7dv g560zDEdm2pwIWRwFiD5oT KhMZPltJUtD206DRRqATlz y9dgg4MlMZIptBEyh8M0LF MCtrzktSy0gCqwQ63qh6D4 JvpoJ5aeOVGzWJExD3TaZC 3sNWNgUgy9STH6DBH8OELt WXSeE6IkTU7uQWSbqVXyHR e8g0godIzxDFPoCZV6y4yr HKjmynLxUX3slb3kvRj1i6 xjczEgRGVmYXVsdCBQYXJh Z4HnyRfgGf2aiZs3vJveYv wpJVH7Ptk4CV8mwz49znz2 kMjoVSLkfsecCvN1BSpvBU BbzlqaDOu1QZunQTPwlKR3 BBDexHArB7TtTAAnDV9xzk q7BXL1LAbcWEUdKfR3OXEx cYRaBQKtcXtzAFtkv638PU J4JlUuRY4xC9Ykr4Q4hW6j aXRcZGVmdGFiNzIwXGZvcm 7fzGKmHKqbq5RqFFX4aeA4 rHJacRRvVHQzFjU1XQypKW 8zxv17JHBuRNH5ln5hyRSg dNolggVidIPgATqgX5ChWG Sqe562HERtU0WrLPSxz5Q1 hpEtXvDqPIZndQN3kbV2EM OqZU5yxveeu5onJMjoUOgr BVGatlW7wuW0IAYwtFFsJ4 YcpA6tJYVyGU7ycwuua4ad QTH7XSrlPKKsWAD3CcCyVW Ybt6Mxyqj6GoQmm3QppBXc MPyrI16ak951QSBkccDuU6 xwbGFpblxwbGFpblxmMFxm chU6RDKcKCjwsftiZGVbJS lqP6ceQzEfISQxxNohBMoc h0EdSMTxKGWiKoTxsBRySM QxRmr7ACNzzPVzZMMsVtIy J5oaqbpbNrVBIYQaf7vzW8 ynbIDWyUAmI4RbDDmvwaZh LYoeXXaaSFEdYLL4FD0kZY LmQBJtfl12 CPT Code(s) (test code g8xzmFRaEIIfmWM3LhFjIW = 3227) Dvb3flo3YqqFXyxAXzTKll sPJrmmSpdf93oLH9tU90GQ 8cBKOpTnO8ATTnovA4Lwo6 KNYrKQSltYQbI991b3nbd7 mnfsUpsVC1kWhvNBSrmjww PtL4KJaoPDRhyxswCWj3EB ifTRScuVR4XOJlkTKxL9Rx TXXsGT4zxan2ARW7WDizSU YtEeP8MUCwcPSbNQTimRwg NDkhg255JPY8RbPaMGVhyc CcdLoncG7vIvBsWVS9PFVj URa9GXLfah4= CLINICAL HISTORY (test f0gveFDiSSFyxMD4SqEmKF code = 3356) Fac1zql1KqkYMewZPeYWyv gVAetcNtfs51wOD3cX40ET 8fSOKnLnC2PGGbvoP2Rty0 KVSbCAQfbGGdV288v2kva2 kohqHhmVG5BHVpCGVwV8Bq WE1jVGFhbTTuK70poQZtME R2ZXYzVLMuvDMxNKXmBQE6 YYRgzMIuY8kaLKLmGU1rih xdLNomIIwaDHIsbWI9VFCb yXHeG3BzJUOlHMwaRUDduz k7BhEgJh2lvLPbwBzcVWjo YXJkXHJpMVxwbGFpblxmcz HdEYJjYXTLzm2tXMSzCjzd uDBgG2cnJR7cnSfqYNF2cb QmNJRlSfwfREWfpe0sETEe HcxjvBSdW8ehKI1uaOvyUS A4qDVjVOHsex1= GROSS DESCRIPTION (test e0xhvEEgSALpnBDDJFBiIv code = [id number]) xexlJiKZHijXWfJ1Gmajmg SHdcWO5pIR1qfDjghVSbdP WwKX4HESNcKzFqTYQndHUg rfTbHmJaJGBvhBXmnDB2MX CfWT3jenbwYVplAWujCMTb xvS3LIUvpPSjO7UpDFJyCJ 8iomemFKG3TPwebD2oglWK SuyyGk2lbPIxhIxkEgHjLm NoYXJzZXQwXGZuaWwgQXJp GFz4xR9HCaziT75tw1I0Cp b6ZCEhCFAdP7HnDO0oYJLv sSMhR90HHqlyXQF6IYHFLr fcYRFbMO3Py5niGGVwqICh FYF1OIsifIJcMWKuJAUcJN e2MUUjGHoopRVeBT6tjCyo BggwcOkzq8LeuEFdAUlkGL XtZQWgZYevKQOaWN4TFgMi KYnBHrpcWWvqVsL9RGs6HF WBCnCaJxIcXntzAWP3BVqn TCp6CTr7BCcBDfE9LUH1FT LyOQjyOQEqOdupNRc1XFXb XFxmIEFyaWFsIFxcZmwgXF oeA33fjWjnkF7fOV9qZR2w hHCyCGDouG2dMW1aA7InlJ 0uXHBhciANClxlcGljTmVz dERvYzEgDQpcbHRycGFyXG xpbjBccmluMCANClxsdHJj aFxjZjFcZnMyMCBSZWNlaX RtBLDnuxUvj0EzPJiwalZo YWJlbGVkIHdpdGggdGhlIH ZymKkpmvQkN7W4tbZqVF5i LKScYFRhI5DcGZDgS33hNY HfkS5cJSYhAU2pQNa8NYNi KDDeMffqrA8hoSOhLSGvpY 6xBNSlU2VvVoUlb55ncZE5 wkHiYzFgKGButd9kuZ1oCK Jaxn5lUTCla4G0XPIae4K5 CMLoJF91WPrqZS8sYNxmPM 4xIGNtLCAwLjYgeCAwLjMg wFKhCdRhM15sBeNgQLrsLA EzNDXjmJSdRNvfBJB7Hz1g qSKhTARlvzP3o8LdZYrtEF VoYkefQWMsMYgjrSGoNE9H NDDpKRnhecPlNL6BTLCgRW haCWDdhJRJIBW8EX9sUVek xXKsgnfuTMEbS0VcJ1Lpqo RhaCNhXOWxqzZrv7bgWHD9 XHNsbXVsdDBcZnMxNlxwYX P2DVp4ATptIUTuO2ZgZ8Yd CMfaJCN3MJNwBlQfGZJhRO NYJgHiRbOaHjB1Ond5BsKy QSh6BDkrH8JTKRDrGOQ2SA K9NEJ1UeH5TDp3GJYMOt5h QTSdSEK6RkP1CDT7VzA9AF xcdCAyIFxcZiBBcmlhbCBc XYHaGDzzemD8EXHmYTCbkP qcfD0sQv9qJX2pgEUqXPCk eH7yCQ3iOvakhAUwAVUaQF 8ahH7vUypvUKIpPHucSDAq V42ck6FEg3YfDV2VMWl1eo LfigdshD4xYPLaiqOoSNzn yRZyI2snI8ZzHUKiDnUxKq IvFIe1MEFgwP4qXc1pcXNx fA8kiPVzDSsxNEM5mANrET SoATOgSNYsJH83QRlEIKRp bmFtZSwgbWVkaWNhbCByZW NvcmQgbnVtYmVyIGFuZCBc lUaqBiBeRKs8V6XabFdvME Txa7zgap3mdOyloAHso9Uy kyNagxmwOXYhIHZef29isW R8iuWdVpUiuVj8bKVbVAZ5 MK3mpOityclsuBLmJLv5xZ WnUBVaLtGwiKoxe0IyPEik LjQgeCAyLjEgeCAwLjQgY2 3fnD6hIPpfjbWiOTXpVI8t KLSlEHAwlBKtmP6mihRbgg ZtlPTtrID3UKHdkR9khH25 edOdrrDEQQ6zrLPsTT7SYK BhciANClxjZjBcZnMyMiAN ClxwbGFpblxlcGljTmVzdE HjXbJbbOohhP17BSXcnCEn ETH6GK7kSWLtjwysIGOdYK KwDNZ7BHadrP57eFBuWCZo VWAubIHhdE4Ex3csAWTqzT UbXSG3KPmqbDDwFASfABKd JQymCwAoB9GYJMUwEqGoMI A3WNAeJOd0APo9JM9INvVx NIJxYYKnNsU3QUByEHo0ZE nvRW0DZXF1Uyf3SOG3FDS9 NTMyOCBcXHQgMiBcXGYgQX BoZRhtJWavmVOkWP3ljDen vtW1BHJmHZcaOXGfZIRsqJ diNABEb8ecptVtEQNpM8w0 Y6RiT9VsDTrvKr2mcSJqYP 6RPFSnrPGYPPP9LG8kAWUI ClxsdHJwYXJcbGluMFxyaW 4iQB6OUBa7abXjWXNqNSjc ehWySMOnK1OdtyGcHZdtKF Aboi4thOarVVkzRcPyGSHa z5g9uVA2rUJstNX2iDTnvT ngDgOtMW2xtDFcME5kRZgh MKzcxbWlc9GbOB39tLElum PgevBjTHO1LnHeEPjzRHYc a4q7yUxxG49ux87onzjohO LtWXChFR0imE6pCzEifyTe K02jb6fmjIIoz5LnxEApoR lwbGUgdGFuLXBpbmssIHBl VYCeK4DkHYBmEMZoq1Y6BB Dqi6N0TRCdIt62VMioLo4l FJznRJ97ZNEjKBzpHRVzO9 RiM1B5MFewXPHVqQYfw1Ot M1abUW9ocJHwf3TihXb4bA RbHBlgLLCaoH2ctJ1hIaHs XHBhciANClxwYXIgDQpcY2 DyQPHqGfZwGRdrpIjhtP2f TXIbO78vv0JDq9RlAPXbAP rsz4helOueb7CxmORkPKas YXHsbNFlMTytsM7jUvVmp7 zeeMl4EQzqmmG5NUCpkl0C ItcaWpshtAzfs8KqvPBbAK uwBDBmUGIzZRmmQASgUF6R DaRuTKgOZidyKEygNmK1GE y1NTAMXfQdZzXvMpqjJWH2 BhErLYc3OXm7IUwSUmB7PD B6GDFmWvGqEGMqJvqgAKg7 IDIgXFxmIEFyaWFsIFxcZm ohXJckF33uFnIoYddmxOQq muQXWsWQb5z9nXgqI42tp7 9qZPKFuxKhj0QqpsSqJddy UZMaBKjcHMVnT91ss6AFi8 HpDN6AUZv0smGlreylpD8y RIWnsoTnCXwpuJTgO4hmB0 SxEINkTxMpSjCfIMj1SCYc eN1pXq7gcQGlnV6llTKsAN fxNOD4fVUmFTMkPHIzUBRi AZ71YZqEJDOwtaOiGAspcA VkaWNhbCByZWNvcmQgbnVt YmVyIGFuZCBcdTgyMjAgXC y9L6RygZdzICDrd5glln74 yxNpi1RbdcQfPTPwpHOsOB 6yBywrgB84KNAyFWCkKBTk mWifKLviSgEmfvSaS50wk3 tgxWFhy6AfnCBifUdlkTNm dGFuLXBpbmssIHBlZHVuY3 WfVBAqFOBjy6E0VCNdk9P8 AILdVy6tVQjwYb0gVGhlAZ 58XQFvQUxvDMZdI8EgX7U6 YTjuQTWZtJBom3EnW7nwXK 7wwXRcz8EpuRj2yRWkLBfj KDFjnH1hsC3hXWAcDAQcSF GttoLNVbplOZQzRGyLz6Ka gNnxUXAuA4r6s46mM2ouzW UuPOJMYJF6ePMmpvToyENh YI2RAKYvhgCHLywvQpHmQn MyMiANClxwbGFpblxlcGlj LiGysPKzAxGulBtlnR46CF PpePXaLET8WQ1wPSQrlgjq UEZgNIUmKNI2SMnxcJ20nR GaPAAdPZPotTYoqC9JJYBc RNA8AJmgpQ05zBMlYD9CWB QlIYP6HIOzqLLrBMB5CD9a fQ0KfQ== MICROSCOPIC DESCRIPTION r3bseAGoOSAlsOB4YvRmGP (test code = 3371) Aea0krx7LrpNEztWGrRAqk uLXbpxKsmb60bLW2fZ88IA 4bDDRlCgK2WMFzelI4Thj8 ZKFmFGJubCQzX145j3etn9 tbpjVzrYG3kBclVWQcavgv DmV1PMguEOCwsxhbAGu5XR mjMQDsfMD3YMVwvLUzO7Ri JZPuQB4auur4KNT2JSawLT RoBjT6GWDbyLEpCQFvjMom AVlir925QUN2KjPtONBeaj PxyMwjlW3zDbDwDZFGRRLm q5PwGXQaEVOxhzkzKGNiFK Bhcn0= [facility] [id number] 09:50:09 Test Item Value Reference Range Interpretation Comments Case Report (test code Surgical Pathology = 104) Report Case: [id number] Authorizing Provider: Angela Loco Collected: 07/03/2021 03:04 PM MD Brian Ordering Location: [address] Received: 07/06/2021 09:08 AM Service Pathologist: Michelle eFrnández MD Specimens: A) - Polyp, Colon - Cecum, x1 taken byhot snare B) - Polyp, Colon - Right/Ascending, x 1 taken by hot snare C) - Polyp, Colon - Right/Ascending, x 1 taken by hot snare, clip x 1 D) - Polyp, Colon - Transverse, x 1 taken by hot snare, clip x 1 DIAGNOSIS (test code = [id number]) FuZzEwMzNcZnRuYmpcdWMx IHtccnRmMVxlcGljOTYwMV hzogMbIQRndICjQ7Oxhqcu KZruBE5fFM7vyPdblUErmX MaBXLyHmBkg4bvi707hDLc u7iaCIXCgufdoJx3zJfuQ9 0cc0N3JwnmX32maMCjIPQ6 OGGjJEYsdKXyDURxVRP8HC MriEInT9guKRLlQZ5ltehk TFvqRLprEUPycGZ8XAWxrL DmL1GrIAMfRDkqQWVjwuk8 LrSzJm6wzRJgaXwpDFjrUO VkLPJwNRgaNOTkKhByFD8t Y77UM79eBMCJH1DNYPXHVB qDYLLCYV1UD2x4QISlxpOa LSAgVFVCVUxBUiBBREVOT0 1RVWSunrglLUTjQe4pJ89Y T72iNBWJD1tGG5EYI5OSIF gQRdGXU1qFNWplLkvYLFZB WvrqAFOoAU6tQF0UWDTZLT wTMEYDPBuREX6YTqAGKkGE PGJZHOHVUZLHOY9GMPHpvT FyICAtICBORUdBVElWRSBG W9QqKCkZZQ1HUdVNNQQJRJ PNHDOTMOQuK6EkAICEVOzU WU2ANQetFGPggKNgLZEiFH YIJV3YOFIRGLfZZD9SI6TD SaTWDibvZH2MWHNrVODOA8 BTWTpccGFyICAtICBNVUxU SVBMRSBGUkFHTUVOVFMgT0 CsRVEXGPtAMcGGNUFJC06Q XHBhciAgLSAgTkVHQVRJVk XkIm6RAXoQZ8svS0WSLSVr QPxWHZuAK4xRBC1WBW2ZRW iYExNWQ5kioKPoPIHhsxGh eOYgIFNcEDZRPP7IVKBXPs JCR4LXAtIXXDCWJIkTBZTP WA2SC6g7VBZxzqFiSBEhWA LAQPoAPZAtMcKTN46EFmXQ SO3VGGUBKePGLJJvEWHCYm 2YDZftANWfSK5eXX9CD1PF SVZFIEZPUiBISUdILUdSQU FHLFHDV0ZQTSQEIIZTJvGD NIyAP25SBrHGABRodg71DT J4FcUms9J0QES3QJJnKGHj x8ebTYXxeWHoVqObQsChBl RdZpoxzOIqTBKjLzAzj8sn r856bWBen7gqIJPhKxR3jS DlNCNsbNGjU368DOXuBIrs l9luj7JuOOGxuUAoa1E0UU WRlctlaQv2zMkzK52bc9X5 QscfF6puVHOzJVXtO7DxKK 7aSJQzAun2MWU0YOB7NQIa ADWbR8DoKT7fSTCsmKOfEO c3k6pypIldSAXjFDL8h1kz XHxnbsZyGT4eja2ipAk0a1 xjczEgRGVmYXVsdCBQYXJh K2UciGvcOh3aeGq7tHzyXi jaNZF9Xih4ZD8vlc29pem6 aLqpIOZfklirMrR0CTwrPW MeflqoXJu1HNuzRULvbLA7 RIGgbPVgW9DnQOVePF8yns p5HZV0WKmbZWJcXlQ3NZIz iCOsALGbaDrdGIeou506HT X7XnBsHO9kS3Shw5M3eO8f aXRcZGVmdGFiNzIwXGZvcm 2iwYSfXFzlr4QcQLK5wnQ9 tQVwgBWcGHBqFlU2UOlmMW 2bbh49KFXlMGV7be3xyJMc uFryynLdiFKdBHodX8HcKW Qoy336JJYdI9IvPJLbo9P2 jdQmXqRiURZlnKI3fqK9QL DmAC6pirusi1tuIAnsOFhn CVXyilW7urQ9NHClzMHbY0 EsxG8pXJDsJK8jyquam0oq WMO8EBmqAPHrRJO5FcEtNI Ztf3Lntvq7NaJoo0RjoSAx BCwbP25bp759BMWcihTwS2 xwbGFpblxwbGFpblxmMFxm zmT3UFRiXOatpebaEETwAO ceK7tgElBlXBPwwRjxXRfz o3DvYGOyNUZtMbMdcXFjAG XgPdh9IOJiqLGyQRSmXeZp O4paprocBuJLJHIjr6flA2 syeATInEHsV7RdEVgsayRm LVgcUDbdUTMhWUW6AZ5sZM NfWSZpdx50 CPT Code(s) (test code n3yjfILuOBQynOX3WkDwFJ = 3357) Zyv8rqx2JdxFEquNJgLAir hYOlipRfmi94sOJ5pF97FK 1nKBFqIjL8LUFunzS3Fil3 MAZgXWHmnMXoH092b0rcu8 dehtGdrNG9vGhmMKDtarnp VmQ4IGadRFGxiavkBFq1EP etWPEwoGA1QXVsdJBnI1No UOKvJS5kknz6ZBA5MGvgGU XkSjD5ASKakTQeTINpeLrl MYcce555BAQ2JgMuDLBnrq JtyFkyxZ0yYkNxSLH7HANn WPp0SYZodl7= CLINICAL HISTORY (test r8ektDMtQZLadSF0RzNdQI code = 3356) Umz2bkz6QbiJSbzQJuMXbo oTNcyzPexh69bYI4yJ37WY 0zAKFqFgZ9VAXkczQ2Cqg5 ROMyLDLohXMzT225l4bbo8 xmjsCmyLH9ZIBkFUTwF4Yt OU8sHWHbvXBeW85zoVUnSN K0RFIbLSYqqVKiQKUpOUP4 JYMqdQPiG6nxEEJaAA0ncv feRCshTKesOCBfuOP8HYMb fSKaK2LqKNDrPDdeNERlah k5XjLdDk9rtMTwjNzpOCxu YXJkXHJpMVxwbGFpblxmcz UwWJDeAGJHap1kRJOeLkzk hWLcA8ldLK3cjVgvYHT4ye UpLNRpVbfkCBAyzg9vUBQw YuxljKVjF4umIT8fkMjzFA W0eJVvVBMyzx9= GROSS DESCRIPTION (test c5aanVSdKTEmdVGNPSLvVx code = [id number]) szorKgPDSmcYDeT1Httwfd TTvwNL9nJZ4emYnuxCMcxR FyXU4TQKZiFfCjGTTwlQQk vjQaYvCxIDWpkSWxwLN5NU UdIY1jltkrVWcnDKiuMIVg fpY4HFHusEJeL5SkZCTxDT 7hmfcjFBO9VPszpF8baiBA VdruUj0inJQaiEoxIaGlMp NoYXJzZXQwXGZuaWwgQXJp FSx7nK2FTimcR46yj2Z5Oq x6QFKuBCTiW0SgIY3hYDHl zGYdK24HJlfsUPX3BXSWXp jjYMUiSR5Ea8foUYIxiVJw MJT9TDgtoWTyPNDgAFNmDL e4KECkBAhlyAAtUQ0ozDsd CbhezOdhn2DasNTcULxoQT VsYSNsJGmcPQVwKU7VUvZy DDqGTamsKRldPuV0MFd6II BTPzBsRuFhAizbKBU7BYkm XAp8UBw5KLePRkU6RVG7UU UkRUtgZJGoWrccSJw9RGPq XFxmIEFyaWFsIFxcZmwgXF ywV08zpDscxV8xMB1aIL2m jBKyRSNweF0gBZ0qW4UrkR 0uXHBhciANClxlcGljTmVz dERvYzEgDQpcbHRycGFyXG xpbjBccmluMCANClxsdHJj aFxjZjFcZnMyMCBSZWNlaX PyQEMnnjPbt5VyNHrridVo YWJlbGVkIHdpdGggdGhlIH XmdMlyobLmJ5W3knJpTZ6w WZClVGYiP2PbPCSxQ87tCG BxgB5oBDLpVG0bJAp5AKQi RYAjQkiqvL2glXEpTBNvpV 0xZXXyZ4JqWvDyu10ejQP4 ozKgKlWgMNUsir7cwL2mCT Dsnr8sPJAge7U9HLJsh1H7 ARMkPP29UFjiRG0wTKaxJX 4xIGNtLCAwLjYgeCAwLjMg qMQgVdCjJ93kHkYwWLfwMI GiYRTwdUHbNZydTIR5Py5v cKPoNSPbtmA2s2DhUJopNC LgWftgESAzVXrklSVmLA4Y KRDjTOyutgUnIU1SVFLqGE ekWQQjqMQNVLS6JO7aDQun jFCrfgqePWInH2KtD5Ujjv TnnTTuJVTvwkTgg2keAJY1 XHNsbXVsdDBcZnMxNlxwYX M9KLh4ETmwXDPpJ7FxU8Rq PPwgZSM2FFYeHcBwHAZxKO HSIeGeMsFuFiK3Lvj9VyDg POg3HUfhF8WRLSKsCAW6ZP B8FMF8UyT3BFb4NMJQHc3t FWNqOIR5OhX2VKX6JsM1KG xcdCAyIFxcZiBBcmlhbCBc NSDwYDxvekZ8WRZeYIVrqP dkpY1cNf6jZU2vaUDdMVSr vO3eJL7iNyhonGAhEGNfSS 0idR5sQtxeEGJtBPjdJDJs M72rg9ELi3OnNG7PFZd7xg YcpvqgyX3yIMDrouIuOAxn cHCyC5rlE4DsUERrDuDaIh UnVTf3APSzjE0eVh9jkQYt eL6rkCLlCTaxIVA9lKMhZV FcLRIhSKYwDH85ARwXACRj bmFtZSwgbWVkaWNhbCByZW NvcmQgbnVtYmVyIGFuZCBc mBabNsTvIUh6N1StvRicBT Bhc8ljgs6orMibgMOqv5Tm gnFahsupFUNtCCYbj45wmG L3ayUtDtNwuAr2mYFzPPF8 GX7asSxzhaooiNAxKTb4pG FhBSGlKhUgcPxnz9ArUCsa LjQgeCAyLjEgeCAwLjQgY2 2enY4nYQtcskXaJEApGG1t KLIjSJXomLUheI0rjfAivs YpxIPwjRW0XXXzgS2ecF70 rpKysiKMXO3hnVZlGX8IFT BhciANClxjZjBcZnMyMiAN ClxwbGFpblxlcGljTmVzdE KiNfSkxVgcfD96HWYwfDHj CQQ6ZP4fCJCqxwhvHGJuQB ZhOEM4NHblnL83kCBpFFNu GWKmuMChdG8Lu0fuAAEfqO NbEKJ4QFjdvQUiRJDuINGq AGnvXiCuQ3KLJKJcAvJeDV S4CKCqLMn1UBo2GP3UYnHh JSEhAHVjVlQ6LTIeUVs6KB wwCJ7KGDD3Sei4YKH9XJQ8 NTMyOCBcXHQgMiBcXGYgQX AbGDesEWzdkUPdAV4niFev biN4RQYzEZfnXQIuITFjqW qsCZMUi3icklBiKNQbB4z6 U2XiT8UkYRvcXk4ndWGlLW 0SHXDpzOFIGTE5DM0eMZTD ClxsdHJwYXJcbGluMFxyaW 6rUT1JWDt1hyRqEQFsRTlf tyCfBORvY0UpwfFaBXwwDS Yswd8ycAvbYYokJeCqDDDx g9f3xII3tMOqnCM2xWCkyO wnOaQcWQ6rkAKbWT7vBNfq YEavorOhw1BdLL60zZPwrb RjwaBwPJL1IzZmGCjmLWSp a0v7eJmsC05tk27uvmtipL BcOIZpOK0ywU7kXuAkxfRo N57vz8dqqIFsp5FwdAYvnB lwbGUgdGFuLXBpbmssIHBl CBHcO1ZvXCSgXJSul2O3MS Qso9Z7BNDnUs61CLsbOv9s BPgvCR53VLMzYBwbMHCuX9 LwO9F6LGozZFNIuSLaf1Iu M8cwIN8kaZByd8JpfWf7pI SvOIckWJBpvB3taB6oXvRe XHBhciANClxwYXIgDQpcY2 EaRIRiSiGbXHxzcHjthM7h ECXyJ61em9UDh6AdTVKiIU hku2yctEnty4YgxBPvOEbn LQCemYDmIPfvwQ8bOgMpm2 ygiBw6JBiyooI8MVPlya4Q UuyoLvktgTdqu1RopXQjCQ fmRFRuXDNhHXjhUEOtAU2J DnZwWJyTDmljGOotKeG1QX j9HCNOWoJeDnFtNyapLRT6 VmBhNZb3ABw6NJtDVmE8PJ Q2MKAuFpMdWYPmRkuyVFc3 IDIgXFxmIEFyaWFsIFxcZm adZYidO89wOpJlWelqzJMk mkKXDhMRf6j1bKazR97jg4 2rAUKTaxFas7StjnWsJtkr JSWrPAktGYMhD75pt0VYe5 PxMC4AUBr3lrWnrjzklY6s XQHxshUuFSfcoXIaT9rpV5 AoQKLjJnBvUjMnWCz0EPJb vK6qFz1ugVIwiR1prBPqVM ilYLY4fCVhAIAkXGTlNUWm UA55UIoKDIBfdlXiQKocuC VkaWNhbCByZWNvcmQgbnVt YmVyIGFuZCBcdTgyMjAgXC m9K1MlsJlpPAKrp3cdyu37 bcIrh2BiioHbUUSvtOYnGI 2iHgbkxB05XHZyWOGyHFCo qYjhLKbhJcQayaYlC75oa9 ltaAKst4HrjZGglVqsfPJs dGFuLXBpbmssIHBlZHVuY3 YsPKImYVOkh9P0OSWea4V4 RJHyRh7pDJchQw5gYAzjXT 14RRSbRLliPADqK3CuV8X0 RCylKWFTaXNgm9TnQ5xmHJ 5usPDcd8NzoYl9rKZzFRon WNTqvI2drV9fIECkNQDnYI QtwxNRIcidFGHhUGfZr8Hp oMoxPRChM6p5o96cX9xzpS HrHMBPSVU9sXDcndYizKUv BP3ROKDqjnFUCqabRcSnDw MyMiANClxwbGFpblxlcGlj JyAogDWkExAnkMsjvB48VC SbrCXdEUW2HB1yBUWyaiqx RGMpMLHjXAI3KIokfF32qR CqKLOpIJLhjKKhjM5LHSOa SNS7YWptlE84kETlKV2EBB SoYLD9VZVrqRDqUHQ0BD4e fQ0KfQ== MICROSCOPIC DESCRIPTION m6lplUZmLQBnlTE5LoTuWV (test code = 3371) Bwi7brn0BwzDEtvKPaEAnm tTHvzfNoru80wMY0sZ81YD 8tTJOsUlX1UUQgklU7Efj6 LHYbFYJhaGOoP501b3uyn5 gazoEwpVI0bBzwQDUjwenp IlD2KJosJOVaikatGKu1GE epULYsbWZ2ERCcsZOhO9Pu OSHbPU4iiqk8CNC6UXtwZT UzIaP7BOMhwLZcIAUswVwe ENpcc977JFH1RmGcUVUtzr OcqIitxK4iGbHiWVEDYTIv f5PdZUKaIDMqvzcnGBWzBZ Bhcn0= [facility]Tise Ftuf1884-03-58 09:50:09 Test Item Value Reference Range Interpretation Comments Case Report (test code Surgical Pathology = 104) Report Case: [id number] Authorizing Provider: Angela Loco Collected: 07/03/2021 03:04 PM MD Brian Ordering Location: [address] Received: 07/06/2021 09:08 AM Service Pathologist: [...] clip x 1 DIAGNOSIS (test code = r7klcKYtJOJoo1joKMDomF 3220) FuZzEwMzNcZnRuYmpcdWMx IHtccnRmMVxlcGljOTYwMV rcajGpWIFgvNEuN1Qdzczo PLswSF6cDN9okDtajXZukF RbSZGxJvCjn5vea702iKPt g5inIUJQuyuqxTo5jUhgK0 9pi6G1PgdoM07dmLPeCGU5 HQXbHCXxmBKcNWYfACC5VG EocQLcY9oaSJVpJN3papkj GZlaVTrvYNSaqOB4XABniC SyB9StJYFqOJioEAUwaqk4 VjIlCx0umOFudJmiFVqjHR DjBICoRVoeKYLhSeEmED4j Y96SP72dCAKPM7MFETDMBH kDCGXVSF9GC5z4IJOxnsBy LSAgVFVCVUxBUiBBREVOT0 0TQJIgbbcyPZXsCz8aM16M M59fUMXVW2cEF4CLT4HJYP kCByHRY9gKNNixGomIJEAE NdxaMUXtXI0nTW7NVKRVMG rTHKQNSTuCDH4KCeKCJyTT FUHBAOHDNZQHFS9UTOHqjP FyICAtICBORUdBVElWRSBG I5QwYPiCOM6IPtVOMOWPME VTQMAXTKLyQ6XvOFJLVTdP VG8GEMggBGLvxBHmVDZxTH YZAD2EDQQXNUnCHH9TM8EH EoHBXhtkYD9HLYZuVAWOS6 BTWTpccGFyICAtICBNVUxU SVBMRSBGUkFHTUVOVFMgT0 WaADZJRObFBmSNCGBFE11T XHBhciAgLSAgTkVHQVRJVk ZdNz3HAByIY3ocP8LEDKJa YRgZXDrPB7hSNG3UQR3DBE rLZvGQF1jhjOOuJPXchaWz yCHvPPNlFVGENU8UVAYMDd PNL5VPLfNPFRCUQFiPUGUF RZ4TP3t3IZGgjiGoBONcYX XCVLzDSUOsCwPET34WEjNT GT5BJEQDKmZHDZUuVNJYHc 6KEDnmHGEzAX4aYC4OZ6BS SVZFIEZPUiBISUdILUdSQU IHJSTOK0WDGGOPHSEWJxYS QEfWV14TEjCWDUTrbz84MF A5PwOqc3M6GIY9CHOqDIUu g3nkHBYixUGzHqFzWfQwRs PbGpexsWVdWAYvHuBzl5at p764oNFaw9czUWJeVxO2oQ IwEDWygKPkB985AGHiUUmk z7ssr7YkOZFpqZSsn5J9FN LKixbvoFv7hGdlA97pf7U0 MfsjC4ppZRKzTGSpG9BfBS 2dUTPuUrv4UXK6MAF1JKXq RMYvK2RiTG1pESQvrCYrKO d2r6olzXglLNYgSDK9k8yg PMjrslAvBI8mpg3pvGm7p2 xjczEgRGVmYXVsdCBQYXJh U8BvjRudQc9yiPw3sHmtAe ckVOK5Puv0ML6wuo24zpd3 lGdrYBBxbflxGwR7YEbzKP PxrjprYKq5YXqiKVPphFY0 ZYEeeUHbC9UjMESlHJ9sla n6JAG0PCtqMTNnKlS3GPBg zVZwZJBejJyfPKwfy355QO W7GnFyVK6mU8Vzf3I7mT7e aXRcZGVmdGFiNzIwXGZvcm 3rvRWuTDqwf1XzPQC7vjG7 bBMrsMFnCKTfSeH1XPssUV 7eck97GPLdHWN8rs2epAId bWrkyaErlJPeRCviG0WxNT Dnj790AZZlS4TySCFer3S7 yfQiUrLzYLOtpEO9nyT8HB OfLB2uirzqd2ztRYubCZnd VDZeksX1deK9SHCpsGUvW3 TgoG8eMZWsOY2bboniu2pi TEI5IFbiDBOmUAA3SkXuPX Wma3Xvluv8UvWup9XxnYTs NRjgK46cf300CBKcgxVeT1 xwbGFpblxwbGFpblxmMFxm hqA7RIAcJXjosnylJTJhFL brI7crIqZaZVZmvNzwVDrz v3EnKSLlEZNqNtUspLBrBY BcVso6CMLxzZKzCCMuEpUi B8zcujnhIxGHVHXwy2vwI1 rxvAMAgTOzL2TvWVcahjYb LPyzOQqeLYQdBDB2SX4xNI BtEKNhdx00 CPT Code(s) (test code d7ccrQJkYVAztAY0JfRmLA = 3357) Eff8qha3VtlFSwyJVaFDaj oGCcurRjmy10wDV5wC22ZO 5aOFCxPbX3EWSoynW8Gwr7 WPFoUPInsSDmP489e6jgc2 vbaoBgkSH7mRkqUCPquwve GnZ8FRwfBZHkvrojPFz4VO xsVSUypAX2BJTmlFVuX2Dw XSIxFB1mujf1OVE9VItdEH KgBbA3AQTxhKXwVPIagDyl QKmjr678BPP1BpNyMLQlnl GgfVgsgH0zCcJbMWH3FFBf GEe9ZVBsjf5= CLINICAL HISTORY (test m6xmqQFgSFCruMS2UjXmMB code = 3356) Wgw3rzw6BfwXKtcLVgMQcx zFXyegMprj06bBS7sL12KI 7gKNReQhO8MJWszxD9Eqz3 PSJbLGCmoDUfO408i1zhd6 tnfxMllON2FJCmBUMpR7Gw EM8iTDNrzCQeB21leOFfAO E7EAEvQJNpzPTrZFRpLOO6 SVHywUUrB8yuCWRmOX4bbu uzISukRMftCJLziLG9IPEy bBQoI9XmNFCnMMgyWQDmqe v9VbGgWy2cyPAkeTyaXUrs YXJkXHJpMVxwbGFpblxmcz IeRZNnYZJLis0jJLQeSmcy rYShV9qpVH0beXyrQFJ8nu XjYGIhUmoqAUMhyl2dVJEk GkxjhPFbW1teAJ2emUnoLW P0sFRpOQVley7= GROSS DESCRIPTION (test t9zsxMXlOJCamEPAYVBfTd code = [id number]) bjwgOsIIKblFQuK0Qefvga QKztVF0pFW3tvPrciGHqiS ZnGB9PAIEoIhAbVBPuqXEm aeEwTzElXERxtEIjhVP3XD KgAW6sirokXGvdAYryDXDd ycO1VZXucKAkB9CzHUZnRS 0opqdxMAC7FDtriL5xfdZM SfvcWl2nnCKwoLxaVuRkIm NoYXJzZXQwXGZuaWwgQXJp IIb8zU2PEuarF53kq4J1Eq a0CGKmNPZrW7LhVI5sYPAe uJRzR38QIaidOUV6XOXKYr sqKEViHQ7Wi8wmDWJdpRQg OZF5UIalrGFfOIDsHQDgSO k5KRWmQTlbwUItQD7zxMrb OtbslDhva0EiuLGcRNhvLL JsEYNkZUvyLKPpVG2WNzTh IWvDIgskPQnuTzI3KSo0PK MBKlLpQrXzPlbbFPA2AQcu ACl9RDy0YJjIGlV3BLO2KL VmALiyQWRsWlxzXMj9VUOu XFxmIEFyaWFsIFxcZmwgXF htF53hbKmesW6iXB0qHA9q qFRgDXYsxX3oLM5oV9KwzK 0uXHBhciANClxlcGljTmVz dERvYzEgDQpcbHRycGFyXG xpbjBccmluMCANClxsdHJj aFxjZjFcZnMyMCBSZWNlaX VrJQNsphPih6KiPOvfwgBq YWJlbGVkIHdpdGggdGhlIH ZnbSzuzvPnC2M6zsUbUM9h ITEoTHVzJ8OgYPLjK72oLP KkkP1fMLUwKW2jHFa1TMDa GMQsKgpygW2hfXXbNZKjsT 7sHYFiR0AvNfUtx43hxWH1 yaWjReUwSOLdth9fqS7tSQ Jadm2bSRBon7U2QYZpr5J5 ETYpXC04SBfqQR7mPChoYU 4xIGNtLCAwLjYgeCAwLjMg sBPmYuHuN10eOcQsKTmsLP KmVTLwkUVlFEvaVXA2Jd3n sCQxYPMxaeK6n0HgWYmeQW VeTmnjMZShMFguoDEoWD3Z VLKyBPqmmnZpKZ5AKPSiPN xeISEtwGXOGOQ3WI3vIDnn jYVutzkvKULwB5FeK0Ecfu TqbJAtPVQbliEoq9uqNWQ0 XHNsbXVsdDBcZnMxNlxwYX F0JDi5HEjnZBGyD3RcE7Mo DWajGBV4NHNrFdMvIIReDS XOSaLrLsTmGxB3Scw1OoJr CSv8QEdcB4MFWXZvYMP4CR H7ZJZ2ZtR4OAn1RKVSLe9h NTCvUAJ7VfF9QBF5RoU2GU xcdCAyIFxcZiBBcmlhbCBc OLLbAQifqwB4AAPbRHEvlY jwlG2vRi6hOF4gtTTtZLDi hL1mSD1yLvadiMOyUPPxZV 7grE8aDvbsDPVfNEydSJWp G78tb7BFa7BzBR4KMEa5gp OnkquxoW5jGURsuoZvBVau mEJbR1gyQ7MkWZKnYhVaGy EeNAu0JUUwjJ8wYi6mlBDu dV0yeALtJZtyFJV6pGOuRL AdAWOeKLEtMK87XAdJMBEg bmFtZSwgbWVkaWNhbCByZW NvcmQgbnVtYmVyIGFuZCBc dFiqOmGwBEg2C5BpeMtmAP Lfw6euoh2tzKmdzOWzb0Jk dlSgxraiVKPgWMJni01xzW L4guBmKwEhgBc6oQRcOEZ4 VP4vdAnctlvcgUQmUCr5yB IdTVTaXrJixQhut4GyPDbn LjQgeCAyLjEgeCAwLjQgY2 4zbE4sCOxltfMyNZYlNJ3v OTNvREIxwHXwaU0zseEzdm BcdBBswIK8ROUnzD2kpY08 jvCkqoJYSC7mbBQuUJ5MUP BhciANClxjZjBcZnMyMiAN ClxwbGFpblxlcGljTmVzdE SzBwBwxRmabI32LUTswVQk BMC8IT1oFWPtbgknVMRuBK QcNUK6XAtmaT49sGTiOIMi XXKxvUCfvB2Bj5tySKIoeT CuWBM0CTuwdZFsKZIjXIXi JSltFlUaC1CTKVTnGkMqZD W7YDYtRCa4RWm3CV6BKwOj GNIhQEIlLcY2YMBaIDc2JK yqQY3QPXA4Mhx5OZX0VHN1 NTMyOCBcXHQgMiBcXGYgQX VdOAabWNowaEJkTC3alTbn xrL7MUYbXFakJTPsLCVhnN raXUJBn2sdtaNtLNKlU7r9 X8WnB1JnZGpcPv5hzOSoRU 8TLKYruVJHROM7TD2oGYKM ClxsdHJwYXJcbGluMFxyaW 1oEJ8NMBa4pjRdDAQvRBni hsFpCMHkY4HybvCdSZghJP Gfyf7ufJgyMHgpSeUkFVYb z2e0lZL4kZQypRB7pIPpuR wkCgFsLC7uzFDvOL6vRWio PSchkyJex0LnIW91tLUqbk IjcuQxJPM4ZaAyJVdgMOGl p6l3qNpwD89kn25adhlteZ DcRQYoQE7yqG7kUbDnhmIt J38vz0fqfZJjo2LqyQFfiD lwbGUgdGFuLXBpbmssIHBl VWPhR4AaSZLrGJXdt4Y9VQ Gtv1E2TYFuWv44QJgnYl9r BRhnZH48ZUYsAJbzLLJgS1 SkI1B5BRbsUGGHhNSlx8Ks R2vmQB4dbFJvk0MzmFa3eY WzNWoqPRDmkL9gkB8xWwNl XHBhciANClxwYXIgDQpcY2 VvVWMrCuPwVNzmdUvznB9q QXWxR28yg4BRz2LxZKHwHC jcw7gaaRsme6VgmRIxYYge LVRgpNNxWSzebH0jMcVyc1 gtdJv7JBdimqD0SJCrvn3J LcjpCtlpkXobq9SwmKApMY pjMXVsZTIcKPmoEYYgOM6U GpZzRPuUIjwjWLbeBaA3CW j5PZLZYgXzYtMfIxsvXHU0 DrXwLEk6RLd8PZpCNkK7SJ Z3PEMhPdThDRFiKdylVWx9 IDIgXFxmIEFyaWFsIFxcZm lyCUudU59zJtZvFywcaUBn waDIEzREu8m8aRjjF43cc6 8pQTJSddDha4IlgnVlVbie RIGaEZbfJOBgS15cw6WPi1 UxVL0ZYWb1jjEwqnhjgA9v HGHqmpTpAWvcxVIbP0zsY8 SkYQCoArGdZpMbPBl3TROh nB9qHb3dfSRuvF6phBTlOM joYYG4kRFqVKTiOVSnOIMg MV06ZYuBOWHqtnOnGVovaT VkaWNhbCByZWNvcmQgbnVt YmVyIGFuZCBcdTgyMjAgXC b6Z2TggZcoDHHtg1ewfm17 pkLdm6LcudCmOOWitIXcZL 2vJczwlG16WVUoRMMjBFWc uJwlWSxnGyEyczBkP84pn2 efyGRlx7InqAOypNxmeLZd dGFuLXBpbmssIHBlZHVuY3 VcXDHbEWXhk6Y3BVIbj6L9 IHWeBp5eNUfjPf4qKWmjRU 33ECGjWDohWXBfY4TpI2L4 PBewURCMnYEda5BiM4rbLJ 0xlTYpq2LbjUa2aLYwYUra WGYleA5vgS3yGFRyTBQrKZ MyqnUZCsdgUANlXEsXm2Yf wClmIWKpX7i3f51bG4hceA WvXNQHEVI7wKLocbKrbPAb UP0NOJYmpsGCYiuaTsZdTb MyMiANClxwbGFpblxlcGlj BaYypNUmPpNylAyuuB05VU BqvUNwDWW8RN2rILDpllao UFHqNAZqQNG5IDvyvL28yM AyDQUuPJSlzZShoQ6KGXHn JDR5YUxysQ86nOIlTP9SVW NdTLX5JCEuvKQrEPI2IY8d fQ0KfQ== MICROSCOPIC DESCRIPTION t9oxrXMbLRIabDS7KsBdQH (test code = 3371) Nmv7ecl9XbpNZicOQdEHoc oAIwamIead02uHL7pZ07AQ 2pTUGwPfG6VDNxuuW2Djm4 JXOaEMNitWVjT770y3enu8 cwtfHosZE5rBgkMUTvufqt PwA3LWtsHXWfqasjDBr6AQ qrJUTuuTC2GRHizWEgY7Gb JMAoZN8ofmq1ORE9JCbrHU KjMbG7MKQbcNZvUAXlvLny FKkuq435TVD7YjIfAFWwiq YfkJdshU7vDmXaTJGVJEJi e0HsOQOcOIRtrepaRVNaQG Bhcn0= [facility] CenterTISSUE [id number] 09:50:09Surgical Pathology Report Case: [id number] Authorizing Provider: Angela Loco Collected: 07/03/2021 03:04 PM MD Brian Ordering Location: [address] Received: 07/06/2021 09:08 AM Service Pathologist: [...] OR MALIGNANCY Signing Pathologist Direct Phone Line: [phone] signed by Michelle Fernández MD on 07/07/2021 at 9:50 [id number] deficiency anemia, unspecified iron deficiency anemia type [...] patient's name, medical record number and "polyp, [id number] taken by hot snare, clip x1" and consists of multiple robert- pink, pedunculated soft tissue (6.0 x 2.2 x 0.4 cm in aggregate). The specimen is submitted in toto in D1-D3.GRICELDA Andrew studentPerformed.POC- Glucose [id number] 08:45:23 Test Item Value Reference Range Interpretation Comments POC-Glucose Meter (test 92 mg/dL 70-110 : TE STED AT [facility] code = 1538) [address] [place] [address], [facility] 30: Farm Operator/Techni kelle ID = [id number] for EDMUNDO BARRAGAN Lab Interpretation (test Normal code = 97848-4) [facility] [id number] 08:45:23 Test Item Value Reference Range Interpretation Comments POC-Glucose Meter (test 92 mg/dL 70-110 : TE STED AT [facility] code = 1538) [address] [place] [address], [facility] 30: Farm Operator/Techni kelle ID = [id number] for ORPHEY EDMUNDO Lab Interpretation (test Normal code = 51037-7) [facility]-Glucose [id number] 08:45:23 Test Item Value Reference Range Interpretation Comments POC-Glucose Meter (test 92 mg/dL 70-110 : TE STED AT [facility] code = 1538) [address] [facility], [address] 30: Farm Operator/Techni kelle ID = [id number] for ORPHEY, EDMUNDO Lab Interpretation (test Normal code = 50046-6) [facility]-Glucose [id number] 08:45:23 Test Item Value Reference Range Interpretation Comments POC-Glucose Meter (test 92 mg/dL 70-110 : TE STED AT [facility] code = 1538) [address] [place] [address], [address] 30: Farm Operator/Techni kelle ID = [id number] for ORPHEY, EDMUNDO Lab Interpretation (test Normal code = 84427-3) [facility]-Glucose [id number] 08:45:23 Test Item Value Reference Range Interpretation Comments POC-Glucose Meter (test 92 mg/dL 70-110 : TE STED AT [facility] code = 1538) [address] [place] [address], [address] 30: Farm Operator/Techni kelle ID = [id number] for ORPHEY, EDMUNDO Lab Interpretation (test Normal code = 51355-2) [facility]-GLUCOSE [id number] 08:45:23 Test Item Value Reference Range Interpretation Comments POC-GLUCOSE METER 92 mg/dL 70-110 : TESTED A T [facility] 6720 (BEAKER) (test code = YUDY Vaca [facility], 1538) [address]: Farm Operator/Techni kelle ID = [id number] for ORPH EY, EDMUNDO RAD, CHEST, 1 VIEW, NON [id number] 07:59:00Reason for exam:->post-opShould this be performed at the bedside?->Yes [facility] : 1955 [...] Cosme MDReport Verified Date/Time:07/04/2021 07:59:51 BASIC METABOLIC [id number] 06:24:45 Test Item Value Reference Range Interpretation [...] S NOT APPLICABLE FOR DIALYSIS PATIEN TS. Farm Operator ID - [id number] 06:15:51 Test Item Value Reference Range Interpretation Comments MAGNESIUM (BEAKER) (test code = 1.9 mg/dL 1.6-2.6 627) Farm Operator ID - [id number] 06:15:51 Test Item Value Reference Range Interpretation Comments PHOSPHORUS (BEAKER) (test code = 3.1 mg/dL 2.3-4.7 604) Farm Operator ID - DBCBC (HEMOGRAM ONLY)2021-07-04 05:44:21 Test [...] Not Detected, (test code = Negative, See 82256-2) external report for linked test SARS-COV-2 [facility] PERFORM[facility] (test code = 75841-7) BRANDI (test code = Negative result for [...] of the Act. Fact Sheet for Healthcare Providers:https://www.Tiipz.com/sites/default/f radha/product/documents/F act_Sheet_HC_Providers_L bkv_CQTV-EsC-1.pdf Fact Sheet for Healthcare Patients:https://www.AIRSIS.redBus.in/sites/default/fi les/product/documents/Fa ct_Sheet_Patients_Lyra_S ARS-CoV-2.pdf Performing Laboratory:[facility] [place] [address] [facility] (Asymptomatic ONLY)2021-07-04 00:21:04 Test Item Value Reference Range Interpretation Comments SARS-COV2/RT-PCR Negative Not Detected, (test code = Negative, See 02113-7) external report for linked test SARS-COV-2 [facility] PER[facility] (test code = 05937-6) BRANDI (test code = Negative result for [...] of the Act. Fact Sheet for Healthcare Providers:https://www.[employer] idel.redBus.in/sites/default/f radha/product/documents/F act_Sheet_HC_Providers_L hgl_KOKE-CtA-4.pdf Fact Sheet for Healthcare Patients:https://www.[employer] del.com/sites/default/fi les/product/documents/Fa ct_Sheet_Patients_Lyra_S ARS-CoV-2.pdf Performing Laboratory:[facility] [place] [address] [facility] (Asymptomatic ONLY)2021-07-04 00:21:04 Test Item Value Reference Range Interpretation Comments SARS-COV2/RT-PCR Negative Not Detected, (test code = Negative, See 04118-4) external report for linked test SARS-COV-2 [facility] PERFORMING [facility] (test code = 83517-0) BRANDI (test code = Negative result for [...] of the Act. Fact Sheet for Healthcare Providers:https://www.[employer] ideMegaPath.redBus.in/sites/default/f radha/product/documents/F act_Sheet_HC_Providers_L xje_NVXP-PrC-2.pdf Fact Sheet for Healthcare Patients:https://www.[employer] del.redBus.in/sites/default/fi les/product/documents/Fa ct_Sheet_Patients_Lyra_S ARS-CoV-2.pdf Performing Laboratory:[facility] [place] [address] [facility] (Asymptomatic ONLY)2021-07-04 00:21:04 Test Item Value Reference Range Interpretation Comments SARS-COV2/RT-PCR Negative Not Detected, (test code = Negative, See 56185-4) external report for linked test SARS-COV-2 [facility] PERFORM[facility] (test code = 64056-5) BRANDI (test code = Negative result for [...] of the Act. Fact Sheet for Healthcare Providers:https://www.Stardoll.redBus.in/sites/default/f radha/product/documents/F act_Sheet_HC_Providers_L tsu_CKMV-AhZ-0.pdf Fact Sheet for Healthcare Patients:https://www.[employer] Dent[employer]com/sites/default/fi les/product/documents/Fa ct_Sheet_Patients_Alicia_S ARS-CoV-2.pdf Performing Laboratory:[facility] [place] [address] [facility] (Asymptomatic ONLY)2021-07-04 00:21:04 Test Item Value Reference Range Interpretation Comments SARS-COV2/RT-PCR Negative Not Detected, (test code = Negative, See 49304-1) external report for linked test SARS-COV-2 [facility] PERFORM[facility] (test code = 82762-5) BRANDI (test code = Negative result for [...] of the Act. Fact Sheet for Healthcare Providers:https://www.Saberrl.redBus.in/sites/default/f radha/product/documents/F act_Sheet_HC_Providers_L idb_SKIQ-CkJ-5.pdf Fact Sheet for Healthcare Patients:https://www.Alpha[employer]one/sites/default/fi les/product/documents/Fa ct_Sheet_Patients_Lyra_S ARS-CoV-2.pdf Performing Laboratory:[facility]/RT-PCR ([facility])2021-07-04 00:21:04 Test Item Value Reference Range Interpretation Comments SARS-COV2/RT-PCR (test Negative Not Detected, Negative, code = 4679961) See external report for linked test SARS-COV-[address] [facility] (test code = 5668543) Negative result for this test determines that [...] of the Act.Fact Sheet for Healthcare Prov iders:https://www.[employer]/sites/default/files/product/documents/Fact_Sheet_HC _Nanolbnzx_Ckpp_OOHN-EbT-2.pdfFact Sheet for Healthcare Patients:https://www.[employer]/sites/default/files/product/docume nts/Xjvt_Xfiao_Jqrdkjko_Ehrk_FJKL-IgQ-7.pdfPerforming Laboratory:[place] [id number] [facility], [place] [address]EEVW-OBVREFL METER 2021-07-03 21:29:18 Test Item Value Reference Range Interpretation Comments POC-GLUCOSE METER 169 mg/dL 70-110 H : TESTED A T [facility] 6720 (BEAKER) (test code = [facility], 153) [address]: Farm Operator/Techni kelle ID = [id number] for Co rtez, Tomales POCT-GLUCOSE [id number] 17:51:28 Test Item Value Reference Range Interpretation Comments POC-GLUCOSE METER 110 mg/dL 70-110 : TESTED A T [facility] 6720 (BEAKER) (test code = [facility], 153) 05477: Farm Operator/Techni kelle ID = [id number] for OR JAMIR, EDMUNDO POCT-GLUCOSE [id number] 16:18:01 Test Item Value Reference Range Interpretation Comments POC-GLUCOSE METER 78 mg/dL 70-110 : TESTED A T [facility] 6720 (BEAKER) (test code = [facility], 1538) 70119: Farm Operator/Techni kelle ID = [id number] for Naren palacio, Sarwat POC-Glucose [id number] 13:43:00 Test Item Value Reference Range Interpretation Comments POC-Glucose Meter (test 82 mg/dL 70-110 : TE STED AT [facility] code = 1538) 6720 [facility], 770 30: Farm Operator/Techni kelle ID = [id number] for RENETTA STEARNS Lab Interpretation (test Normal code = 49170-3) [facility]PO[facility] [id number] 13:43:00 Test Item Value Reference Range Interpretation Comments POC-GLUCOSE METER 82 mg/dL 70-110 : TESTED A T [facility] 6720 (BEAKER) (test code = [place]Y [place] [facility], 1538) 56[address]: Farm Operator/Techni kelle ID = [id number] for RENETTA STEARNS POCT-GLUCOSE [id number] 08:55:17 Test Item Value Reference Range Interpretation Comments POC-GLUCOSE METER 85 mg/dL 70-110 : TESTED A T [facility] 6720 (AKASH) (test code = [place] [facility], 1538) 30748: Farm Operator/Techni kelle ID = [id number] for EDMUNDO DÍAZ RAD, CHEST, 1 VIEW, NON [id number] 07:19:00Reason for exam:->post-opShould this be performed at the bedside?->Yes [facility] : 1955 [...] Conteh Verified Date/Time: 07/03/2021 07:19:27 Reading Location: [facility] Radiology Reading Room BASIC METABOLIC [id number] 04:12:43 Test Item Value Reference Range Interpretation [...] S NOT APPLICABLE FOR DIALYSIS PATIEN TS. Farm Operator ID - RAKAN [id number] 03:43:29 Test Item Value Reference Range Interpretation Comments MAGNESIUM (BEAKER) (test code = 2.1 mg/dL 1.6-2.6 627) Farm Operator ID - RAKAN [id number] 03:43:29 Test Item Value Reference Range Interpretation Comments PHOSPHORUS (BEAKER) (test code = 3.4 mg/dL 2.3-4.7 604) Farm Operator ID - RAKAN WCBC (HEMOGRAM ONLY)2021-07-03 03:25:24 [...] WBC 0-0 (test code = 413) POC-Glucose [id number] 21:37:50 Test Item Value Reference Range Interpretation Comments POC-Glucose Meter (test 97 mg/dL 70-110 : TE STED AT [facility] code = 1538) [address] [facility], 770 30: Farm Operator/Techni kelle ID = [id number] for PADMINI MACKENZIE Lab Interpretation (test Normal code = 11104-4) [facility] CenterPOCT[facility]SE [id number] 21:37:50 Test Item Value Reference Range Interpretation Comments POC-GLUCOSE METER 97 mg/dL 70-110 : TESTED A T [facility] 6720 (BEAKER) (test code = [facility], 153) 71866: Farm Operator/Techni kelle ID = [id number] for NATALIA RO MACKENZIE POCT-GLUCOSE [id number] 18:00:54 Test Item Value Reference Range Interpretation Comments POC-GLUCOSE METER 166 mg/dL 70-110 H : TESTED A T [facility] 6720 (BEAKER) (test code = [facility], 153) 46433: Farm Operator/Techni kelle ID = [id number] for Kayla Emanuel POCT-GLUCOSE [id number] 13:01:12 Test Item Value Reference Range Interpretation Comments POC-GLUCOSE METER 169 mg/dL 70-110 H : TESTED A T [facility] 6720 (BEAKER) (test code = YUDY [place] [facility], 1538) [address]: Farm Operator/Techni kelle ID = [id number] for Nawaf Emanuela POC-Glucose [id number] 08:45:07 Test Item Value Reference Range Interpretation Comments POC-Glucose Meter (test 134 mg/dL 70-110 H : TE STED AT [facility] code = 1538) [address] [facility], 770 30: Farm Operator/Techni kelle ID = [id number] for Nawaf Freitas a Lab Interpretation (test Abnormal code = 79924-2) [facility] CenterPO[facility] [id number] 08:45:07 Test Item Value Reference Range Interpretation Comments POC-GLUCOSE METER 134 mg/dL 70-110 H : TESTED A T [facility] (test code = [place] [facility], 1538) [address]: Farm Operator/Techni kelle ID = [id number] for Nitin rrera, Kayla RAD, CHEST, 1 VIEW, NON [id number] 08:36:00Reason for exam:->post-opShould this be performed at the bedside?->Yes [facility] : 1955 [...] Conteh MDReport Verified Date/Time: 07/02/2021 08:36:36Reading Location: [facility] Radiology Reading Room Basic Metabolic [id number] 07:06:58 Test Item Value Reference Range Interpretation Comments Sodium (test code = 137 meq/L 900-536 5198-2) Potassium (test code = 3.9 meq/L 3.5-5.1 2823-3) Chloride (test code = 101 meq/L 98-107 2075-0) CO2 (test code = 28 meq/L 22-29 2028-9) BUN (test code = 23 mg/dL 7-21 H 3094-0) Creatinine (test code 3.16 mg/dL 0.57-1.25 H = 2160-0) Glucose (test code = 150 mg/dL 70-105 H 2345-7) Calcium (test code = 8.1 mg/dL 8.4-10.2 L 92465-4) EGFR (test code = 15 mL/min/1.73 sq m ESTIMFORM[place] [address]-3) NOT ACCURATE CREATININE CLEARANCE IN PREDICTING GLOMERULAR FILTRATION RATE . ESTIMATED GFR I S NOT APPLICABLE FOR DIALYSIS PATIENTS. BRANDI (test code = BRANDI) Farm Operator ID - PIAYA L Lab Interpretation Abnormal (test code = 55382-9) [facility] METABOLIC [id number] 07:06:58 Test Item Value Reference Range Interpretation [...] S NOT APPLICABLE FOR DIALYSIS PATIEN TS. Farm Operator ID - LIANA YVgvobsqbv4218-24-20 07:06:52 Test Item Value Reference Range Interpretation Comments Magnesium (test code = 1.9 mg/dL 1.6-2.6 14342-3) BRANDI (test code = BRANDI) Farm Operator ID - LIANA L Lab Interpretation (test Normal code = 41367-0) [facility] CenterPhosphorus2022-03-31 07:06:52 Test Item Value Reference Range Interpretation Comments Phosphorus (test code = 2.6 mg/dL 2.3-4.7 2777-1) BRANDI (test code = BRANDI) Farm Operator ID - LIANA L Lab Interpretation (test Normal code = 58012-1) [facility] CenterMAGNESIUM2022-03-31 07:06:52 Test Item Value Reference Range Interpretation Comments MAGNESIUM (BEAKER) (test code = 1.9 mg/dL 1.6-2.6 627) Farm Operator ID - LIANA [id number] 07:06:52 Test Item Value Reference Range Interpretation Comments PHOSPHORUS (BEAKER) (test code = 2.6 mg/dL 2.3-4.7 604) Farm Operator ID - LIANA LCBC (Hemogram only)2021-07-02 05:56:49 Test Item Value Reference Range Interpretation Comments WBC (test code = 6690-2) 4.6 See_Comment [A utomated message] The system AccelOne generated this result transmitted ref erence range: 3.5 - 10 .5 K/L. The refe rence range was not u sed to interpret this result as normal/abnor mal. RBC (test code = 789-8) 2.50 See_Comment L [Au tomated message] The system AccelOne generated this result transmitted ref erence range: 3.93 - 5 .22 M/L. The refe rence range was not u sed to interpret this result as normal/abnor mal. MCHC (test code = 786-4) 31.9 See_Comment L [A utomated message] The system AccelOne generated this result transmitted ref erence range: [...] L [Aut omated message] 777-3) The system AccelOne generated this result transmitted ref erence range: 150 - 45 0 K/CU MM. The referen ce range was not u sed to interpret this result as normal/abnor mal. MPV (test code = 11.3 fL 9.4-12.3 79328-6) nRBC (test code = 413) 0 See_Comment [Aut omated message] The system AccelOne generated this result transmitted ref erence range: 0 - 0 /1 00 WBC. The refere nce range was not u sed to interpret this result as normal/abnor mal. Lab Interpretation (test Abnormal code = 02129-7) [facility] (HEMOGRAM ONLY)2021-07-02 05:56:49 Test Item Value Reference [...] WBC 0-0 (test code = 413) POCT-GLUCOSE [id number] 21:57:03 Test Item Value Reference Range Interpretation Comments POC-GLUCOSE METER 179 mg/dL 70-110 H : TESTED A T [facility] 6720 (BEAKER) (test code = [facility], 153) 34333: Farm Operator/Techni kelle ID = [id number] for JOSIE GONZALEZO POCT-GLUCOSE [id number] 17:59:08 Test Item Value Reference Range Interpretation Comments POC-GLUCOSE METER 208 mg/dL 70-110 H : TESTED A T [facility] 6720 (BEAKER) (test code = [facility], 153) 91258: Farm Operator/Techni kelle ID = [id number] for Zachary richardLoco stanley POCT-GLUCOSE [id number] 13:37:14 Test Item Value Reference Range Interpretation Comments POC-GLUCOSE METER 118 mg/dL 70-110 H : TESTED A T [facility] 6720 (BEAKER) (test code = [facility], 153) 97044: Farm Operator/Techni kelle ID = [id number] for Millie Toledo RAD, CHEST, 1 VIEW, NON [id number] 09:58:00Reason for exam:->post-opShould this be performed at the bedside?->Yes [facility] : 1955 [...] Conteh Verified Date/Time: 07/01/2021 09:58:13 Reading Location: [facility] Radiology Reading Room POC-Glucose [id number] 08:48:09 Test Item Value Reference Range Interpretation Comments POC-Glucose Meter (test 127 mg/dL 70-110 H : TE STED AT [facility] code = 1538) [address] [facility], 770 30: Farm Operator/Techni kelle ID = [id number] for Loco Chapman Lab Interpretation (test Abnormal code = 90380-9) [facility] CenterPOCT[facility]GLUCOSE [id number] 08:48:09 Test Item Value Reference Range Interpretation Comments POC-GLUCOSE METER 127 mg/dL 70-110 H : TESTED A T [facility] 6720 (BEAKER) (test code = [facility] [facility], 1538) 32550: Farm Operator/Techni kelle ID = [id number] for Loco Hicks Basic Metabolic [id number] 06:34:36 Test Item Value Reference Range Interpretation [...] (test code = 8.2 mg/dL 8.4-10.2 L 07899-4) EGFR (test code = 10 mL/min/1.73 [place] [address]-2) NOT ACCURATE CREATININE CLEARANCE IN PREDICTING GLOMERULAR FILTRATION RATE . ESTIMATED GFR I S NOT APPLICABLE FOR DIALYSIS PATIENTS. BRANDI (test code = BRANDI) Farm Operator ID - LIANA Guevara Lab Interpretation Abnormal (test code = 62615-6) [facility] METABOLIC [id number] 06:34:36 Test Item Value Reference Range Interpretation [...] S NOT APPLICABLE FOR DIALYSIS PATIEN TS. Farm Operator ID - LIANA ZPmdoexsfe6068-40-79 06:26:43 Test Item Value Reference Range Interpretation Comments Magnesium (test code = 2.1 mg/dL 1.6-2.6 29139-8) BRANDI (test code = BRANDI) Farm Operator ID - LIANA L Lab Interpretation (test Normal code = 87392-2) [facility] CenterPhosphorus2022-03-30 06:26:43 Test Item Value Reference Range Interpretation Comments Phosphorus (test code = 3.6 mg/dL 2.3-4.7 2777-1) BRANDI (test code = BRANDI) Farm Operator ID - LIANA L Lab Interpretation (test Normal code = 24173-4) [facility] CenterMAGNESIUM2022-03-30 06:26:43 Test Item Value Reference Range Interpretation Comments MAGNESIUM (BEAKER) (test code = 2.1 mg/dL 1.6-2.6 627) Farm Operator ID - LIANA [id number] 06:26:43 Test Item Value Reference Range Interpretation Comments PHOSPHORUS (BEAKER) (test code = 3.6 mg/dL 2.3-4.7 604) Farm Operator ID - LIANA LCBC (Hemogram only)2021-07-01 05:41:20 Test Item Value Reference Range Interpretation Comments WBC (test code = 6690-2) 4.8 See_Comment [A utomated message] The system AccelOne generated this result transmitted ref erence range: 3.5 - 10 .5 K/L. The refe rence range was not u sed to interpret this result as normal/abnor mal. RBC (test code = 789-8) 2.60 See_Comment L [Au tomated message] The system [employer]elOne generated this result transmitted ref erence range: 3.93 - 5 .22 M/L. The refe rence range was not u sed to interpret this result as normal/abnor mal. MCHC (test code = 786-4) 32.1 See_Comment L [A utomated message] The system [employer]One generated this result transmitted ref erence range: [...] L [Aut omated message] 777-3) The system [employer]One generated this result transmitted ref erence range: 150 - 45 0 K/CU MM. The referen ce range was not u sed to interpret this result as normal/abnor mal. MPV (test code = 11.3 fL 9.4-12.3 41492-8) nRBC (test code = 413) 0 See_Comment [Aut omated message] The system [employer]elOne generated this result transmitted ref erence range: 0 - 0 /1 00 WBC. The refere nce range was not u sed to interpret this result as normal/abnor mal. Lab Interpretation (test Abnormal code = 03103-2) [facility] (HEMOGRAM ONLY)2021-07-01 05:41:20 Test Item Value Reference [...] WBC 0-0 (test code = 413) POCT-GLUCOSE [id number] 21:14:47 Test Item Value Reference Range Interpretation Comments POC-GLUCOSE METER 159 mg/dL 70-110 H : TESTED A T [facility] 6720 (BEAKER) (test code = [place], 1538) [address]188: Farm Operator/Techni kelle ID = [id number] for RO FRANCES, MACKENZIE RAD, ABDOMEN/KUB, 1 VIEW [id number] 18:59:00Reason for exam:- >constipationShould this be performed at the bedside?->Yes [facility] : 1955 Sex: FFINAL REPORT Exam: RAD, ABDOMEN/KUB, 1 VIEW APDate: 06/30/2021 6:58 PM Indication:constipation COMPARISON: 06/24/2021 DISCUSSION/IMPRESSION: The lower thorax is within normal limits. Nonspecific bowel gas pattern. No evidence of free air within the limitations of this study. Signed: Kb Gregorio Verified Date/Time: 06/30/2021 18:59:30 Reading Location: [address] Reading Room POCT-GLUCOSE [id number] 17:39:03 Test Item Value Reference Range Interpretation Comments POC-GLUCOSE METER 204 mg/dL 70-110 H : TESTED A T [facility] 6720 (AKASH) (test code = [facility] [facility], 1538) [address]100[address]: Farm Operator/Techni kelle ID = [id number] for OR PHEY EDMUNDO POCT-GLUCOSE [id number] 12:35:41 Test Item Value Reference Range Interpretation Comments POC-GLUCOSE METER 136 mg/dL 70-110 H : TESTED A T [facility] 6720 (AKASH) (test code = [facility] [facility], 1538) 62834: Farm Operator/Techni kelle ID = [id number] for OR PHEY, EDMUNDO RAD, CHEST, 1 VIEW, NON [id number] 09:21:00Reason for exam:->post-opShould this be performed at the bedside?->Yes [facility] : 1955 [...] Conteh Verified Date/Time: 06/30/2021 09:21:42 Reading Location: [facility] Radiology Reading Room POCT-GLUCOSE [id number] 08:26:49 Test Item Value Reference Range Interpretation Comments POC-GLUCOSE METER 132 mg/dL 70-110 H : TESTED A T [facility] 6720 (BEAKER) (test code = [place], 1538) [address]57: Farm Operator/Techni kelle ID = [id number] for OR EDMUNDO BOWIE BASIC METABOLIC [id number] 05:31:46 Test Item Value Reference Range Interpretation [...] S NOT APPLICABLE FOR DIALYSIS PATIEN TS. Farm Operator ID - LIANA [id number] 05:28:01 Test Item Value Reference Range Interpretation Comments MAGNESIUM (BEAKER) (test code = 1.8 mg/dL 1.6-2.6 627) Farm Operator ID - LIANA [id number] 05:28:01 Test Item Value Reference Range Interpretation Comments PHOSPHORUS (BEAKER) (test code = 2.6 mg/dL 2.3-4.7 604) Farm Operator ID - LIANA LCBC (HEMOGRAM ONLY)2021-06-30 05:03:10 [...] 0-0 (test code = 413) Prepare Leuko-Red [id number] 23:54:00 Test Item Value Reference Range Interpretation Comments CROSSMATCH (test code = 2264) COMPATIBLE Unit ABO (test code = O Pos 6844705) UNIT NUMBER (test code = [id number] 934-0) Status (test code = 8092267) [facility] Blood Bank Product (test code RED BLOOD CELLS = 2263) PRODUCT CODE (test code = M5329J56 933-2) [facility] Center[facility]Red [id number] 23:54:00 Test Item Value Reference Range Interpretation Comments CROSSMATCH (test code = 2264) COMPATIBLE Unit ABO (test code = O Pos 7534371) UNIT NUMBER (test code = [id number] 934-0) Status (test code = 1280491) [place] Blood Bank Product (test code RED BLOOD CELLS = 2263) PRODUCT CODE (test code = [id number] 933-2) [facility] CenterPrep[facility] Leuko-Red [id number] 23:54:00 Test Item Value Reference Range Interpretation Comments CROSSMATCH (test code = 2264) COMPATIBLE Unit ABO (test code = O Pos 6108179) UNIT NUMBER (test code = [id number] 934-0) Status (test code = 2239113) [place]_TIMEINCHART Blood Bank Product (test code RED BLOOD CELLS = 2263) PRODUCT CODE (test code = T5033E42 933-2) [facility]Pre[facility] Leuko-Red [id number] 23:54:00 Test Item Value Reference Range Interpretation Comments CROSSMATCH (test code = 2264) COMPATIBLE Unit ABO (test code = O Pos 2156142) UNIT NUMBER (test code = [id number] 934-0) Status (test code = 5423054) [place]_TIMEINCHART Blood Bank Product (test code RED BLOOD CELLS = 2263) PRODUCT CODE (test code = H9825Z74 933-2) [facility] CenterPre[facility] Leuko-Red [id number] 23:54:00 Test Item Value Reference Range Interpretation Comments CROSSMATCH (test code = 2264) COMPATIBLE Unit ABO (test code = O Pos 4184098) UNIT NUMBER (test code = [id number] 934-0) Status (test code = 1240831) [place]INCWE[facility] Blood Bank Product (test code RED BLOOD CELLS = 2263) PRODUCT CODE (test code = K5357Z81 933-2) [facility] CenterPre[facility] Leuko-Red [id number] 23:54:00 Test Item Value Reference Range Interpretation Comments CROSSMATCH (test code = 2264) COMPATIBLE Unit ABO (test code = O Pos 7575404) UNIT NUMBER (test code = [id number] 934-0) Status (test code = 6680081) [place]_TIMEINCHART Blood Bank Product (test code RED BLOOD CELLS = 2263) PRODUCT CODE (test code = K2688A89 933-2) [facility] CenterPrep[facility] Leuko-Red [id number] 23:54:00 Test Item Value Reference Range Interpretation Comments CROSSMATCH (test code = 2264) COMPATIBLE Unit ABO (test code = O Pos 4570835) UNIT NUMBER (test code = [id number] 934-0) Status (test code = 1382555) [place]_TIMEINCHART Blood Bank Product (test code RED BLOOD CELLS = 2263) PRODUCT CODE (test code = [id number] 933-2) [facility] CenterPrep[facility] Leuko-Red [id number] 23:54:00 Test Item Value Reference Range Interpretation Comments CROSSMATCH (test code = 2264) COMPATIBLE Unit ABO (test code = O Pos 5650112) UNIT NUMBER (test code = [id number] 934-0) Status (test code = 4605953) [place] Blood Bank Product (test code RED BLOOD CELLS = 2263) PRODUCT CODE (test code = Z8040U75 933-2) [facility] CenterPrep[facility] Leuko-Red [id number] 23:54:00 Test Item Value Reference Range Interpretation Comments CROSSMATCH (test code = 2264) COMPATIBLE Unit ABO (test code = O Pos 1651259) UNIT NUMBER (test code = [id number] 934-0) Status (test code = 4791393) [place] Blood Bank Product (test code RED BLOOD CELLS = 2263) PRODUCT CODE (test code = [id number] 933-2) [facility] [id number] 22:04:06 Test Item Value Reference Range Interpretation Comments POC-GLUCOSE METER 149 mg/dL 70-110 H : TESTED A T [facility] 6720 (BEAKER) (test code = [facility], 1538) [address]: Farm Operator/Techni kelle ID = [id number] for [place], Ti pastora POCT-GLUCOSE [id number] 17:55:17 Test Item Value Reference Range Interpretation Comments POC-GLUCOSE METER 150 mg/dL 70-110 H : TESTED A T [facility] 6720 (BEAKER) (test code = [facility], 1538) 51840: Farm Operator/Techni kelle ID = [id number] for DANIEL JACKSONIS POCT-GLUCOSE [id number] 15:31:47 Test Item Value Reference Range Interpretation Comments POC-GLUCOSE METER 155 mg/dL 70-110 H : TESTED A T [facility] 6720 (BEAKER) (test code = [facility], 1538) 62982: Farm Operator/Techni kelle ID = [id number] for EDMUNDO JACKSON RAD, CHEST, 1 VIEW, NON [id number] 10:41:00Reason for exam:->post-opShould this be performed at the bedside?->Yes [facility] : 1955 [...] edema or viral pneumonia. Signed: Boogie Conteh [facility] Verified Date/Time: 06/29/2021 10:41:18 Reading Location: [facility] Radiology Reading Room POC-Glucose [id number] 08:51:04 Test Item Value Reference Range Interpretation Comments POC-Glucose Meter (test 208 mg/dL 70-110 H : TE STED AT [facility] code = 1538) [address] [place], [address]: Farm Operator/Techni kelle ID = [id number] for EDMUNDO BARRAGAN Lab Interpretation (test Abnormal code = 60944-5) [facility] [id number] 08:51:04 Test Item Value Reference Range Interpretation Comments POC-Glucose Meter (test 208 mg/dL 70-110 H : TE STED AT [facility] code = 1538) [address] [place], [address]: Farm Operator/Techni kelle ID = [id number] for EDMUNDO BARRAGAN Lab Interpretation (test Abnormal code = 35727-9) [facility] [id number] 08:51:04 Test Item Value Reference Range Interpretation Comments POC-GLUCOSE METER 208 mg/dL 70-110 H : TESTED A T [facility] 6720 (BEAKER) (test code = YUDY [place] [facility], 1538) 57963: Farm Operator/Techni kelle ID = [id number] for EDMUNDO JACKSON Basic Metabolic [id number] 06:07:27 Test Item Value Reference Range Interpretation [...] (test code = 8.0 mg/dL 8.4-10.2 L 00049-9) EGFR (test code = 9 mL/min/1.[place] [address]-9) NOT ACCURATE CREATININE CLEARANCE IN PREDICTING GLOMERULAR FILTRATION RATE . ESTIMATED GFR I S NOT APPLICABLE FOR DIALYSIS PATIENTS. BRANDI (test code = BRANDI) Farm Operator ID - HIEN M Lab Interpretation Abnormal (test code = 69959-2) [facility] Metabolic [id number] 06:07:27 Test Item Value Reference Range Interpretation [...] (test code = 8.0 mg/dL 8.4-10.2 L 11361-1) EGFR (test code = 9 mL/min/1.[place] [address]-0) NOT ACCURATE CREATININE CLEARANCE IN PREDICTING GLOMERULAR FILTRATION RATE . ESTIMATED GFR I S NOT APPLICABLE FOR DIALYSIS PATIENTS. BRANDI (test code = BRANDI) Farm Operator ID - HIEN M Lab Interpretation Abnormal (test code = 89347-4) [facility] Metabolic [id number] 06:07:27 Test Item Value Reference Range Interpretation [...] (test code = 8.0 mg/dL 8.4-10.2 L 94753-0) EGFR (test code = 9 mL/min/1.[place] [address]-7) NOT ACCURATE CREATININE CLEARANCE IN PREDICTING GLOMERULAR FILTRATION RATE . ESTIMATED GFR I S NOT APPLICABLE FOR DIALYSIS PATIENTS. BRANDI (test code = BRANDI) Farm Operator ID - HIEN M Lab Interpretation Abnormal (test code = 82190-7) [facility] METABOLIC [id number] 06:07:27 Test Item Value Reference Range Interpretation [...] S NOT APPLICABLE FOR DIALYSIS PATIEN TS. Farm Operator ID - HIEN [id number] 06:05:44 Test Item Value Reference Range Interpretation Comments Phosphorus (test code = 2.5 mg/dL 2.3-4.7 2777-1) BRANDI (test code = BRANDI) Farm Operator ID - HIEN Lab Interpretation (test Normal code = 68243-8) [facility] Center[facility]osphorus2022-03-28 06:05:44 Test Item Value Reference Range Interpretation Comments Phosphorus (test code = 2.5 mg/dL 2.3-4.7 2777-1) BRANDI (test code = BRANDI) Farm Operator ID - HIEN Lab Interpretation (test Normal code = 19413-5) [facility]2022-[facility]-28 06:05:44 Test Item Value Reference Range Interpretation Comments Phosphorus (test code = 2.5 mg/dL 2.3-4.7 2777-1) BRANDI (test code = BRANDI) Farm Operator ID - HIEN M Lab Interpretation (test Normal code = 92874-6) [facility]PHOSPHORUS2022-03-28 06:05:44 Test Item Value Reference Range Interpretation Comments PHOSPHORUS (BEAKER) (test code = 2.5 mg/dL 2.3-4.7 604) Farm Operator ID - HIEN [id number] 06:05:43 Test Item Value Reference Range Interpretation Comments Magnesium (test code = 2.2 mg/dL 1.6-2.6 15233-6) BRANDI (test code = BRANDI) Farm Operator ID - HIEN M Lab Interpretation (test Normal code = 78242-2) [facility]2022-03-28 06:05:43 Test Item Value Reference Range Interpretation Comments Magnesium (test code = 2.2 mg/dL 1.6-2.6 11443-0) BRANDI (test code = BRANDI) Farm Operator ID - HIEN M Lab Interpretation (test Normal code = 17166-3) [facility]2022-03-28 06:05:43 Test Item Value Reference Range Interpretation Comments Magnesium (test code = 2.2 mg/dL 1.6-2.6 02836-8) BRANDI (test code = BRANDI) Farm Operator ID - HIEN M Lab Interpretation (test Normal code = 00723-1) [facility]2022-03-28 06:05:43 Test Item Value Reference Range Interpretation Comments MAGNESIUM (BEAKER) (test code = 2.2 mg/dL 1.6-2.6 627) Farm Operator ID - HIEN MCBC (Hemogram only)2021-06-29 05:32:19 Test Item Value Reference Range Interpretation Comments WBC (test code = 6690-2) 4.7 See_Comment [A utomated message] The system [employer] generated this result transmitted ref erence range: 3.5 - 10 .5 K/L. The refe rence range was not u sed to interpret this result as normal/abnor mal. RBC (test code = 789-8) 2.94 See_Comment L [Au tomated message] The system [employer] generated this result transmitted ref erence range: 3.93 - 5 .22 M/L. The refe rence range was not u sed to interpret this result as normal/abnor mal. MCHC (test code = 786-4) 31.8 See_Comment L [A utomated message] The system [employer] generated this result transmitted ref erence range: [...] L [Aut omated message] 777-3) The system [employer] generated this result transmitted ref erence range: 150 - 45 0 K/CU MM. The referen ce range was not u sed to interpret this result as normal/abnor mal. MPV (test code = 12.2 fL 9.4-12.3 36134-2) nRBC (test code = 413) 0 See_Comment [Aut omated message] The system [employer] generated this result transmitted ref erence range: 0 - 0 /1 00 WBC. The refere nce range was not u sed to interpret this result as normal/abnor mal. Lab Interpretation (test Abnormal code = 64103-4) [facility])2021-06-29 05:32:19 Test Item Value Reference Range Interpretation Comments WBC (test code = 6690-2) 4.7 See_Comment [A utomated message] The system [employer] generated this result transmitted ref erence range: 3.5 - 10 .5 K/L. The refe rence range was not u sed to interpret this result as normal/abnor mal. RBC (test code = 789-8) 2.94 See_Comment L [Au tomated message] The system [employer] generated this result transmitted ref erence range: 3.93 - 5 .22 M/L. The refe rence range was not u sed to interpret this result as normal/abnor mal. MCHC (test code = 786-4) 31.8 See_Comment L [A utomated message] The system [employer] generated this result transmitted ref erence range: [...] L [Aut omated message] 777-3) The system [employer] generated this result transmitted ref erence range: 150 - 45 0 K/CU MM. The referen ce range was not u sed to interpret this result as normal/abnor mal. MPV (test code = 12.2 fL 9.4-12.3 74408-7) nRBC (test code = 413) 0 See_Comment [Aut omated message] The system [employer] generated this result transmitted ref erence range: 0 - 0 /1 00 WBC. The refere nce range was not u sed to interpret this result as normal/abnor mal. Lab Interpretation (test Abnormal code = 54812-1) [facility])2021-06-29 05:32:19 Test Item Value Reference Range Interpretation Comments WBC (test code = 6690-2) 4.7 See_Comment [A utomated message] The system [employer] generated this result transmitted ref erence range: 3.5 - 10 .5 K/L. The refe rence range was not u sed to interpret this result as normal/abnor mal. RBC (test code = 789-8) 2.94 See_Comment L [Au tomated message] The system [employer] generated this result transmitted ref erence range: 3.93 - 5 .22 M/L. The refe rence range was not u sed to interpret this result as normal/abnor mal. MCHC (test code = 786-4) 31.8 See_Comment L [A utomated message] The system [employer] generated this result transmitted ref erence range: [...] L [Aut omated message] 777-3) The system [employer] generated this result transmitted ref erence range: 150 - 45 0 K/CU MM. The referen ce range was not u sed to interpret this result as normal/abnor mal. MPV (test code = 12.2 fL 9.4-12.3 07283-5) nRBC (test code = 413) 0 See_Comment [Aut omated message] The system [employer] generated this result transmitted ref erence range: 0 - 0 /1 00 WBC. The refere nce range was not u sed to interpret this result as normal/abnor mal. Lab Interpretation (test Abnormal code = 61524-5) [facility] (HEMOGRAM ONLY)2021-06-29 05:32:19 Test Item Value Reference [...] WBC 0-0 (test code = 413) POC-Glucose [id number] 19:54:37 Test Item Value Reference Range Interpretation Comments POC-Glucose Meter (test 188 mg/dL 70-110 H : TE STED AT [facility] code = 1538) [address] [facility] [place], [address]: Farm Operator/Techni kelle ID = [id number] for RAMON SPRING Lab Interpretation (test Abnormal code = 11095-4) [facility] [id number] 19:54:37 Test Item Value Reference Range Interpretation Comments POC-GLUCOSE METER 188 mg/dL 70-110 H : [facility] (test code = [facility], 1538) [address]: Farm Operator/Techni kelle ID = [id number] for BURKE CHAATRAMON POCT-GLUCOSE [id number] 17:33:41 Test Item Value Reference Range Interpretation Comments POC-GLUCOSE METER 166 mg/dL 70-110 H : [facility] (test code = [facility], 1538) 23852: Farm Operator/Techni kelle ID = [id number] for Kayla Emanuel CBC with platelet count + automated [id number] 15:34:06 Test Item Value Reference Range Interpretation Comments WBC (test code = 6690-2) 4.6 See_Comment [A utomated message] The system [employer] generated this result transmitted ref erence range: 3.5 - 10 .5 K/L. The refe rence range was not u sed to interpret this result as normal/abnor mal. RBC (test code = 789-8) 2.86 See_Comment L [Au tomated message] The system [employer] generated this result transmitted ref erence range: 3.93 - 5 .22 M/L. The refe rence range was not u sed to interpret this result as normal/abnor mal. MCHC (test code = 786-4) 32.1 See_Comment L [A utomated message] The system [employer] generated this result transmitted ref erence range: [...] L [Aut omated message] 777-3) The system [employer] generated this result transmitted ref erence range: 150 - 45 0 K/CU MM. The referen ce range was not u sed to interpret this result as normal/abnor mal. MPV (test code = 11.0 fL 9.4-12.3 81813-9) nRBC (test code = 413) 0 See_Comment [Aut omated message] The system [employer] generated this result transmitted ref erence range: [...] See_Comment [Aut omated message] 670) The system [employer] generated this result transmitted ref erence range: 1.56 - 6 .13 K/L. The refe rence range was not u sed to interpret this result as normal/abnor mal. # Lymphs (test code = 0.73 See_Comment L [Auto mated message] 414) The system [employer] generated this result transmitted ref erence range: 1.18 - 3 .74 K/L. The refe rence range was not u sed to interpret this result as normal/abnor mal. # Monos (test code = 0.62 See_Comment H [Autom ated message] 415) The system [employer] generated this result transmitted ref erence range: 0.24 - 0 .36 K/L. The refe rence range was not u sed to interpret this result as normal/abnor mal. # Eos (test code = 416) 0.24 See_Comment [Au tomated message] The system [employer] generated this result transmitted ref erence range: 0.04 - 0 .36 K/L. The refe rence range was not u sed to interpret this result as normal/abnor mal. # Baso (test code = 417) 0.04 See_Comment [A utomated message] The system [employer] generated this result transmitted ref erence range: 0.01 - 0 .08 K/L. The refe rence range was not u sed to interpret this result as normal/abnor mal. Immature 0 % 0-1 Granulocytes-Relative (test code = 2801) Lab Interpretation (test Abnormal code = 38738-6) [facility] with platelet count + automated [id number] 15:34:06 Test Item Value Reference Range Interpretation Comments WBC (test code = 6690-2) 4.6 See_Comment [A utomated message] The system [employer] generated this result transmitted ref erence range: 3.5 - 10 .5 K/L. The refe rence range was not u sed to interpret this result as normal/abnor mal. RBC (test code = 789-8) 2.86 See_Comment L [Au tomated message] The system [employer] generated this result transmitted ref erence range: 3.93 - 5 .22 M/L. The refe rence range was not u sed to interpret this result as normal/abnor mal. MCHC (test code = 786-4) 32.1 See_Comment L [A utomated message] The system [employer] generated this result transmitted ref erence range: [...] L [Aut omated message] 777-3) The system [employer] generated this result transmitted ref erence range: 150 - 45 0 K/CU MM. The referen ce range was not u sed to interpret this result as normal/abnor mal. MPV (test code = 11.0 fL 9.4-12.3 96962-7) nRBC (test code = 413) 0 See_Comment [Aut omated message] The system [employer] generated this result transmitted ref erence range: [...] See_Comment [Aut omated message] 670) The system [employer] generated this result transmitted ref erence range: 1.56 - 6 .13 K/L. The refe rence range was not u sed to interpret this result as normal/abnor mal. # Lymphs (test code = 0.73 See_Comment L [Auto mated message] 414) The system [employer] generated this result transmitted ref erence range: 1.18 - 3 .74 K/L. The refe rence range was not u sed to interpret this result as normal/abnor mal. # Monos (test code = 0.62 See_Comment H [Autom ated message] 415) The system [employer] generated this result transmitted ref erence range: 0.24 - 0 .36 K/L. The refe rence range was not u sed to interpret this result as normal/abnor mal. # Eos (test code = 416) 0.24 See_Comment [Au tomated message] The system [employer] generated this result transmitted ref erence range: 0.04 - 0 .36 K/L. The refe rence range was not u sed to interpret this result as normal/abnor mal. # Baso (test code = 417) 0.04 See_Comment [A utomated message] The system [employer] generated this result transmitted ref erence range: 0.01 - 0 .08 K/L. The refe rence range was not u sed to interpret this result as normal/abnor mal. Immature 0 % 0-1 Granulocytes-Relative (test code = 2801) Lab Interpretation (test Abnormal code = 71072-8) [facility] with platelet count + automated [id number] 15:34:06 Test Item Value Reference Range Interpretation Comments WBC (test code = 6690-2) 4.6 See_Comment [A utomated message] The system [employer] generated this result transmitted ref erence range: 3.5 - 10 .5 K/L. The refe rence range was not u sed to interpret this result as normal/abnor mal. RBC (test code = 789-8) 2.86 See_Comment L [Au tomated message] The system [employer] generated this result transmitted ref erence range: 3.93 - 5 .22 M/L. The refe rence range was not u sed to interpret this result as normal/abnor mal. MCHC (test code = 786-4) 32.1 See_Comment L [A utomated message] The system [employer] generated this result transmitted ref erence range: [...] L [Aut omated message] 777-3) The system [employer] generated this result transmitted ref erence range: 150 - 45 0 K/CU MM. The referen ce range was not u sed to interpret this result as normal/abnor mal. MPV (test code = 11.0 fL 9.4-12.3 11667-5) nRBC (test code = 413) 0 See_Comment [Aut omated message] The system [employer] generated this result transmitted ref erence range: [...] See_Comment [Aut omated message] 670) The system [employer] generated this result transmitted ref erence range: 1.56 - 6 .13 K/L. The refe rence range was not u sed to interpret this result as normal/abnor mal. # Lymphs (test code = 0.73 See_Comment L [Auto mated message] 414) The system [employer] generated this result transmitted ref erence range: 1.18 - 3 .74 K/L. The refe rence range was not u sed to interpret this result as normal/abnor mal. # Monos (test code = 0.62 See_Comment H [Autom ated message] 415) The system [employer] generated this result transmitted ref erence range: 0.24 - 0 .36 K/L. The refe rence range was not u sed to interpret this result as normal/abnor mal. # Eos (test code = 416) 0.24 See_Comment [Au tomated message] The system [employer] generated this result transmitted ref erence range: 0.04 - 0 .36 K/L. The refe rence range was not u sed to interpret this result as normal/abnor mal. # Baso (test code = 417) 0.04 See_Comment [A utomated message] The system [employer] generated this result transmitted ref erence range: 0.01 - 0 .08 K/L. The refe rence range was not u sed to interpret this result as normal/abnor mal. Immature 0 % 0-1 Granulocytes-Relative (test code = 2801) Lab Interpretation (test Abnormal code = 83024-6) [facility] with platelet count + automated [id number] 15:34:06 Test Item Value Reference Range Interpretation Comments WBC (test code = 6690-2) 4.6 See_Comment [A utomated message] The system [employer] generated this result transmitted ref erence range: 3.5 - 10 .5 K/L. The refe rence range was not u sed to interpret this result as normal/abnor mal. RBC (test code = 789-8) 2.86 See_Comment L [Au tomated message] The system [employer] generated this result transmitted ref erence range: 3.93 - 5 .22 M/L. The refe rence range was not u sed to interpret this result as normal/abnor mal. MCHC (test code = 786-4) 32.1 See_Comment L [A utomated message] The system [employer] generated this result transmitted ref erence range: [...] L [Aut omated message] 777-3) The system [employer] generated this result transmitted ref erence range: 150 - 45 0 K/CU MM. The referen ce range was not u sed to interpret this result as normal/abnor mal. MPV (test code = 11.0 fL 9.4-12.3 28193-9) nRBC (test code = 413) 0 See_Comment [Aut omated message] The system [employer] generated this result transmitted ref erence range: [...] See_Comment [Aut omated message] 670) The system [employer] generated this result transmitted ref erence range: 1.56 - 6 .13 K/L. The refe rence range was not u sed to interpret this result as normal/abnor mal. # Lymphs (test code = 0.73 See_Comment L [Auto mated message] 414) The system [employer] generated this result transmitted ref erence range: 1.18 - 3 .74 K/L. The refe rence range was not u sed to interpret this result as normal/abnor mal. # Monos (test code = 0.62 See_Comment H [Autom ated message] 415) The system [employer] generated this result transmitted ref erence range: 0.24 - 0 .36 K/L. The refe rence range was not u sed to interpret this result as normal/abnor mal. # Eos (test code = 416) 0.24 See_Comment [Au tomated message] The system [employer] generated this result transmitted ref erence range: 0.04 - 0 .36 K/L. The refe rence range was not u sed to interpret this result as normal/abnor mal. # Baso (test code = 417) 0.04 See_Comment [A utomated message] The system [employer] generated this result transmitted ref erence range: 0.01 - 0 .08 K/L. The refe rence range was not u sed to interpret this result as normal/abnor mal. Immature 0 % 0-1 Granulocytes-Relative (test code = 2801) Lab Interpretation (test Abnormal code = 88140-9) [facility] with platelet count + automated [id number] 15:34:06 Test Item Value Reference Range Interpretation Comments WBC (test code = 6690-2) 4.6 See_Comment [A utomated message] The system [employer] generated this result transmitted ref erence range: 3.5 - 10 .5 K/L. The refe rence range was not u sed to interpret this result as normal/abnor mal. RBC (test code = 789-8) 2.86 See_Comment L [Au tomated message] The system [employer] generated this result transmitted ref erence range: 3.93 - 5 .22 M/L. The refe rence range was not u sed to interpret this result as normal/abnor mal. MCHC (test code = 786-4) 32.1 See_Comment L [A utomated message] The system [employer] generated this result transmitted ref erence range: [...] L [Aut omated message] 777-3) The system [employer] generated this result transmitted ref erence range: 150 - 45 0 K/CU MM. The referen ce range was not u sed to interpret this result as normal/abnor mal. MPV (test code = 11.0 fL 9.4-12.3 29520-7) nRBC (test code = 413) 0 See_Comment [Aut omated message] The system [employer] generated this result transmitted ref erence range: [...] See_Comment [Aut omated message] 670) The system [employer] generated this result transmitted ref erence range: 1.56 - 6 .13 K/L. The refe rence range was not u sed to interpret this result as normal/abnor mal. # Lymphs (test code = 0.73 See_Comment L [Auto mated message] 414) The system [employer] generated this result transmitted ref erence range: 1.18 - 3 .74 K/L. The refe rence range was not u sed to interpret this result as normal/abnor mal. # Monos (test code = 0.62 See_Comment H [Autom ated message] 415) The system [employer] generated this result transmitted ref erence range: 0.24 - 0 .36 K/L. The refe rence range was not u sed to interpret this result as normal/abnor mal. # Eos (test code = 416) 0.24 See_Comment [Au tomated message] The system [employer] generated this result transmitted ref erence range: 0.04 - 0 .36 K/L. The refe rence range was not u sed to interpret this result as normal/abnor mal. # Baso (test code = 417) 0.04 See_Comment [A utomated message] The system [employer] generated this result transmitted ref erence range: 0.01 - 0 .08 K/L. The refe rence range was not u sed to interpret this result as normal/abnor mal. Immature 0 % 0-1 Granulocytes-Relative (test code = 2801) Lab Interpretation (test Abnormal code = 96537-3) [facility] with platelet count + automated [id number] 15:34:06 Test Item Value Reference Range Interpretation Comments WBC (test code = 6690-2) 4.6 See_Comment [A utomated message] The system [employer] generated this result transmitted ref erence range: 3.5 - 10 .5 K/L. The refe rence range was not u sed to interpret this result as normal/abnor mal. RBC (test code = 789-8) 2.86 See_Comment L [Au tomated message] The system [employer] generated this result transmitted ref erence range: 3.93 - 5 .22 M/L. The refe rence range was not u sed to interpret this result as normal/abnor mal. MCHC (test code = 786-4) 32.1 See_Comment L [A utomated message] The system [employer] generated this result transmitted ref erence range: [...] L [Aut omated message] 777-3) The system [employer] generated this result transmitted ref erence range: 150 - 45 0 K/CU MM. The referen ce range was not u sed to interpret this result as normal/abnor mal. MPV (test code = 11.0 fL 9.4-12.3 69017-5) nRBC (test code = 413) 0 See_Comment [Aut omated message] The system [employer] generated this result transmitted ref erence range: [...] See_Comment [Aut omated message] 670) The system [employer] generated this result transmitted ref erence range: 1.56 - 6 .13 K/L. The refe rence range was not u sed to interpret this result as normal/abnor mal. # Lymphs (test code = 0.73 See_Comment L [Auto mated message] 414) The system [employer] generated this result transmitted ref erence range: 1.18 - 3 .74 K/L. The refe rence range was not u sed to interpret this result as normal/abnor mal. # Monos (test code = 0.62 See_Comment H [Autom ated message] 415) The system [employer] generated this result transmitted ref erence range: 0.24 - 0 .36 K/L. The refe rence range was not u sed to interpret this result as normal/abnor mal. # Eos (test code = 416) 0.24 See_Comment [Au tomated message] The system [employer] generated this result transmitted ref erence range: 0.04 - 0 .36 K/L. The refe rence range was not u sed to interpret this result as normal/abnor mal. # Baso (test code = 417) 0.04 See_Comment [A utomated message] The system [employer] generated this result transmitted ref erence range: 0.01 - 0 .08 K/L. The refe rence range was not u sed to interpret this result as normal/abnor mal. Immature 0 % 0-1 Granulocytes-Relative (test code = 2801) Lab Interpretation (test Abnormal code = 78093-9) [facility] with platelet count + automated [id number] 15:34:06 Test Item Value Reference Range Interpretation Comments WBC (test code = 6690-2) 4.6 See_Comment [A utomated message] The system [employer] generated this result transmitted ref erence range: 3.5 - 10 .5 K/L. The refe rence range was not u sed to interpret this result as normal/abnor mal. RBC (test code = 789-8) 2.86 See_Comment L [Au tomated message] The system [employer] generated this result transmitted ref erence range: 3.93 - 5 .22 M/L. The refe rence range was not u sed to interpret this result as normal/abnor mal. MCHC (test code = 786-4) 32.1 See_Comment L [A utomated message] The system [employer] generated this result transmitted ref erence range: [...] L [Aut omated message] 777-3) The system [employer] generated this result transmitted ref erence range: 150 - 45 0 K/CU MM. The referen ce range was not u sed to interpret this result as normal/abnor mal. MPV (test code = 11.0 fL 9.4-12.3 39508-8) nRBC (test code = 413) 0 See_Comment [Aut omated message] The system [employer] generated this result transmitted ref erence range: [...] See_Comment [Aut omated message] 670) The system [employer] generated this result transmitted ref erence range: 1.56 - 6 .13 K/L. The refe rence range was not u sed to interpret this result as normal/abnor mal. # Lymphs (test code = 0.73 See_Comment L [Auto mated message] 414) The system [employer] generated this result transmitted ref erence range: 1.18 - 3 .74 K/L. The refe rence range was not u sed to interpret this result as normal/abnor mal. # Monos (test code = 0.62 See_Comment H [Autom ated message] 415) The system [employer] generated this result transmitted ref erence range: 0.24 - 0 .36 K/L. The refe rence range was not u sed to interpret this result as normal/abnor mal. # Eos (test code = 416) 0.24 See_Comment [Au tomated message] The system [employer] generated this result transmitted ref erence range: 0.04 - 0 .36 K/L. The refe rence range was not u sed to interpret this result as normal/abnor mal. # Baso (test code = 417) 0.04 See_Comment [A utomated message] The system [employer] generated this result transmitted ref erence range: 0.01 - 0 .08 K/L. The refe rence range was not u sed to interpret this result as normal/abnor mal. Immature 0 % 0-1 Granulocytes-Relative (test code = 2801) Lab Interpretation (test Abnormal code = 89108-8) [facility] [id number] 15:34:06 Test Item Value Reference Range Interpretation Comments WBC (test code = 6690-2) 4.6 See_Comment [A utomated message] The system [employer] generated this result transmitted ref erence range: 3.5 - 10 .5 K/L. The refe rence range was not u sed to interpret this result as normal/abnor mal. RBC (test code = 789-8) 2.86 See_Comment L [Au tomated message] The system [employer] generated this result transmitted ref erence range: 3.93 - 5 .22 M/L. The refe rence range was not u sed to interpret this result as normal/abnor mal. MCHC (test code = 786-4) 32.1 See_Comment L [A utomated message] The system [employer] generated this result transmitted ref erence range: [...] L [Aut omated message] 777-3) The system [employer] generated this result transmitted ref erence range: 150 - 45 0 K/CU MM. The referen ce range was not u sed to interpret this result as normal/abnor mal. MPV (test code = 11.0 fL 9.4-12.3 51232-4) nRBC (test code = 413) 0 See_Comment [Aut omated message] The system [employer] generated this result transmitted ref erence range: [...] See_Comment [Aut omated message] 670) The system [employer] generated this result transmitted ref erence range: 1.56 - 6 .13 K/L. The refe rence range was not u sed to interpret this result as normal/abnor mal. # Lymphs (test code = 0.73 See_Comment L [Auto mated message] 414) The system [employer] generated this result transmitted ref erence range: 1.18 - 3 .74 K/L. The refe rence range was not u sed to interpret this result as normal/abnor mal. # Monos (test code = 0.62 See_Comment H [Autom ated message] 415) The system [employer] generated this result transmitted ref erence range: 0.24 - 0 .36 K/L. The refe rence range was not u sed to interpret this result as normal/abnor mal. # Eos (test code = 416) 0.24 See_Comment [Au tomated message] The system [employer] generated this result transmitted ref erence range: 0.04 - 0 .36 K/L. The refe rence range was not u sed to interpret this result as normal/abnor mal. # Baso (test code = 417) 0.04 See_Comment [A utomated message] The system [employer] generated this result transmitted ref erence range: 0.01 - 0 .08 K/L. The refe rence range was not u sed to interpret this result as normal/abnor mal. Immature 0 % 0-1 Granulocytes-Relative (test code = 2801) Lab Interpretation (test Abnormal code = 18214-4) [facility] with platelet count + automated [id number] 15:34:06 Test Item Value Reference Range Interpretation Comments WBC (test code = 6690-2) 4.6 See_Comment [A utomated message] The system [employer] generated this result transmitted ref erence range: 3.5 - 10 .5 K/L. The refe rence range was not u sed to interpret this result as normal/abnor mal. RBC (test code = 789-8) 2.86 See_Comment L [Au tomated message] The system [employer] generated this result transmitted ref erence range: 3.93 - 5 .22 M/L. The refe rence range was not u sed to interpret this result as normal/abnor mal. MCHC (test code = 786-4) 32.1 See_Comment L [A utomated message] The system [employer] generated this result transmitted ref erence range: [...] L [Aut omated message] 777-3) The system [employer] generated this result transmitted ref erence range: 150 - 45 0 K/CU MM. The referen ce range was not u sed to interpret this result as normal/abnor mal. MPV (test code = 11.0 fL 9.4-12.3 86484-4) nRBC (test code = 413) 0 See_Comment [Aut omated message] The system [employer] generated this result transmitted ref erence range: [...] See_Comment [Aut omated message] 670) The system [employer] generated this result transmitted ref erence range: 1.56 - 6 .13 K/L. The refe rence range was not u sed to interpret this result as normal/abnor mal. # Lymphs (test code = 0.73 See_Comment L [Auto mated message] 414) The system [employer] generated this result transmitted ref erence range: 1.18 - 3 .74 K/L. The refe rence range was not u sed to interpret this result as normal/abnor mal. # Monos (test code = 0.62 See_Comment H [Autom ated message] 415) The system [employer] generated this result transmitted ref erence range: 0.24 - 0 .36 K/L. The refe rence range was not u sed to interpret this result as normal/abnor mal. # Eos (test code = 416) 0.24 See_Comment [Au tomated message] The system [employer] generated this result transmitted ref erence range: 0.04 - 0 .36 K/L. The refe rence range was not u sed to interpret this result as normal/abnor mal. # Baso (test code = 417) 0.04 See_Comment [A utomated message] The system [employer] generated this result transmitted ref erence range: 0.01 - 0 .08 K/L. The refe rence range was not u sed to interpret this result as normal/abnor mal. Immature 0 % 0-1 Granulocytes-Relative (test code = 2801) Lab Interpretation (test Abnormal code = 62870-8) [facility] with platelet count + automated [id number] 15:34:06 Test Item Value Reference Range Interpretation Comments WBC (test code = 6690-2) 4.6 See_Comment [A utomated message] The system [employer] generated this result transmitted ref erence range: 3.5 - 10 .5 K/L. The refe rence range was not u sed to interpret this result as normal/abnor mal. RBC (test code = 789-8) 2.86 See_Comment L [Au tomated message] The system [employer] generated this result transmitted ref erence range: 3.93 - 5 .22 M/L. The refe rence range was not u sed to interpret this result as normal/abnor mal. MCHC (test code = 786-4) 32.1 See_Comment L [A utomated message] The system [employer] generated this result transmitted ref erence range: [...] L [Aut omated message] 777-3) The system [employer] generated this result transmitted ref erence range: 150 - 45 0 K/CU MM. The referen ce range was not u sed to interpret this result as normal/abnor mal. MPV (test code = 11.0 fL 9.4-12.3 96157-7) nRBC (test code = 413) 0 See_Comment [Aut omated message] The system [employer] generated this result transmitted ref erence range: [...] See_Comment [Aut omated message] 670) The system [employer] generated this result transmitted ref erence range: 1.56 - 6 .13 K/L. The refe rence range was not u sed to interpret this result as normal/abnor mal. # Lymphs (test code = 0.73 See_Comment L [Auto mated message] 414) The system [employer] generated this result transmitted ref erence range: 1.18 - 3 .74 K/L. The refe rence range was not u sed to interpret this result as normal/abnor mal. # Monos (test code = 0.62 See_Comment H [Autom ated message] 415) The system [employer] generated this result transmitted ref erence range: 0.24 - 0 .36 K/L. The refe rence range was not u sed to interpret this result as normal/abnor mal. # Eos (test code = 416) 0.24 See_Comment [Au tomated message] The system [employer] generated this result transmitted ref erence range: 0.04 - 0 .36 K/L. The refe rence range was not u sed to interpret this result as normal/abnor mal. # Baso (test code = 417) 0.04 See_Comment [A utomated message] The system [employer] generated this result transmitted ref erence range: 0.01 - 0 .08 K/L. The refe rence range was not u sed to interpret this result as normal/abnor mal. Immature 0 % 0-1 Granulocytes-Relative (test code = 2801) Lab Interpretation (test Abnormal code = 18026-4) [facility] with platelet count + automated [id number] 15:34:06 Test Item Value Reference Range Interpretation Comments WBC (test code = 6690-2) 4.6 See_Comment [A utomated message] The system [employer] generated this result transmitted ref erence range: 3.5 - 10 .5 K/L. The refe rence range was not u sed to interpret this result as normal/abnor mal. RBC (test code = 789-8) 2.86 See_Comment L [Au tomated message] The system [employer] generated this result transmitted ref erence range: 3.93 - 5 .22 M/L. The refe rence range was not u sed to interpret this result as normal/abnor mal. MCHC (test code = 786-4) 32.1 See_Comment L [A utomated message] The system [employer] generated this result transmitted ref erence range: [...] L [Aut omated message] 777-3) The system [employer] generated this result transmitted ref erence range: 150 - 45 0 K/CU MM. The referen ce range was not u sed to interpret this result as normal/abnor mal. MPV (test code = 11.0 fL 9.4-12.3 10297-8) nRBC (test code = 413) 0 See_Comment [Aut omated message] The system [employer] generated this result transmitted ref erence range: [...] See_Comment [Aut omated message] 670) The system [employer] generated this result transmitted ref erence range: 1.56 - 6 .13 K/L. The refe rence range was not u sed to interpret this result as normal/abnor mal. # Lymphs (test code = 0.73 See_Comment L [Auto mated message] 414) The system [employer] generated this result transmitted ref erence range: 1.18 - 3 .74 K/L. The refe rence range was not u sed to interpret this result as normal/abnor mal. # Monos (test code = 0.62 See_Comment H [Autom ated message] 415) The system [employer] generated this result transmitted ref erence range: 0.24 - 0 .36 K/L. The refe rence range was not u sed to interpret this result as normal/abnor mal. # Eos (test code = 416) 0.24 See_Comment [Au tomated message] The system [employer] generated this result transmitted ref erence range: 0.04 - 0 .36 K/L. The refe rence range was not u sed to interpret this result as normal/abnor mal. # Baso (test code = 417) 0.04 See_Comment [A utomated message] The system [employer] generated this result transmitted ref erence range: 0.01 - 0 .08 K/L. The refe rence range was not u sed to interpret this result as normal/abnor mal. Immature 0 % 0-1 Granulocytes-Relative (test code = 2801) Lab Interpretation (test Abnormal code = 94279-8) [facility] with platelet count + automated [id number] 15:34:06 Test Item Value Reference Range Interpretation Comments WBC (test code = 6690-2) 4.6 See_Comment [A utomated message] The system [employer] generated this result transmitted ref erence range: 3.5 - 10 .5 K/L. The refe rence range was not u sed to interpret this result as normal/abnor mal. RBC (test code = 789-8) 2.86 See_Comment L [Au tomated message] The system [employer] generated this result transmitted ref erence range: 3.93 - 5 .22 M/L. The refe rence range was not u sed to interpret this result as normal/abnor mal. MCHC (test code = 786-4) 32.1 See_Comment L [A utomated message] The system [employer] generated this result transmitted ref erence range: [...] L [Aut omated message] 777-3) The system [employer] generated this result transmitted ref erence range: 150 - 45 0 K/CU MM. The referen ce range was not u sed to interpret this result as normal/abnor mal. MPV (test code = 11.0 fL 9.4-12.3 44840-3) nRBC (test code = 413) 0 See_Comment [Aut omated message] The system [employer] generated this result transmitted ref erence range: [...] See_Comment [Aut omated message] 670) The system [employer] generated this result transmitted ref erence range: 1.56 - 6 .13 K/L. The refe rence range was not u sed to interpret this result as normal/abnor mal. # Lymphs (test code = 0.73 See_Comment L [Auto mated message] 414) The system [employer] generated this result transmitted ref erence range: 1.18 - 3 .74 K/L. The refe rence range was not u sed to interpret this result as normal/abnor mal. # Monos (test code = 0.62 See_Comment H [Autom ated message] 415) The system [employer] generated this result transmitted ref erence range: 0.24 - 0 .36 K/L. The refe rence range was not u sed to interpret this result as normal/abnor mal. # Eos (test code = 416) 0.24 See_Comment [Au tomated message] The system [employer] generated this result transmitted ref erence range: 0.04 - 0 .36 K/L. The refe rence range was not u sed to interpret this result as normal/abnor mal. # Baso (test code = 417) 0.04 See_Comment [A utomated message] The system [employer] generated this result transmitted ref erence range: 0.01 - 0 .08 K/L. The refe rence range was not u sed to interpret this result as normal/abnor mal. Immature 0 % 0-1 Granulocytes-Relative (test code = 2801) Lab Interpretation (test Abnormal code = 79498-1) [facility] W/PLT COUNT & AUTO [id number] 15:34:06 Test Item Value Reference Range Interpretation [...] PERCENT (BEAKER) (test code = 2801) POCT-GLUCOSE [id number] 12:42:57 Test Item Value Reference Range Interpretation Comments POC-GLUCOSE METER 216 mg/dL 70-110 H : TESTED A T [facility] [address] (BEAKER) (test code = YUD[place] [address], 1538) [address]: Farm Operator/Techni kelle ID = [id number] for Kayla Emanuel Prepare Leuko-Red [id number] 10:49:00 Test Item Value Reference Range Interpretation Comments CROSSMATCH (test code = 2264) COMPATIBLE Unit ABO (test code = O Pos 2441427) UNIT NUMBER (test code = [id number] 934-0) Status (test code = 6863626) ISSUED Blood Bank Product (test code RED BLOOD CELLS = 2263) PRODUCT CODE (test code = I1646V58 933-2) [facility] [id number] 10:49:00 Test Item Value Reference Range Interpretation Comments CROSSMATCH (test code = 2264) COMPATIBLE Unit ABO (test code = O Pos 1063739) UNIT NUMBER (test code = [id number] 934-0) Status (test code = 0415017) ISSUED Blood Bank Product (test code RED BLOOD CELLS = 2263) PRODUCT CODE (test code = Q0452A56 933-2) [facility] [id number] 10:49:00 Test Item Value Reference Range Interpretation Comments CROSSMATCH (test code = 2264) COMPATIBLE Unit ABO (test code = O Pos 9679301) UNIT NUMBER (test code = [id number] 934-0) Status (test code = 3700383) ISSUED Blood Bank Product (test code RED BLOOD CELLS = 2263) PRODUCT CODE (test code = I4026Y80 933-2) [facility] [id number] 08:43:51 Test Item Value Reference Range Interpretation Comments POC-GLUCOSE METER 209 mg/dL 70-110 H : TESTED A T [facility] [address] (BEAKER) (test code = YUDY [place], 1538) [address]: Farm Operator/Techni kelle ID = [id number] for Kayla Emanuel RAD, CHEST, 1 VIEW, NON [id number] 07:26:00Reason for exam:->post-opShould this be performed at the bedside?->Yes [facility] 1955 [...] Additional findings: None. Signed: Bayron Cosme Verified Date/Time: 06/28/2021 07:26:22 BASIC METABOLIC [id number] 04:56:45 Test Item Value Reference Range Interpretation [...] S NOT APPLICABLE FOR DIALYSIS PATIEN TS. Farm Operator ID - LIANA [id number] 04:48:49 Test Item Value Reference Range Interpretation Comments MAGNESIUM (BEAKER) 2.0 mg/dL 1.6-2.6 Specimen slightly (test code = 627) hemolyzed Farm Operator ID - LIANA [id number] 04:48:49 Test Item Value Reference Range Interpretation Comments PHOSPHORUS (BEAKER) 2.5 mg/dL 2.3-4.7 Specimen slightly (test code = 604) hemolyzed Farm Operator ID - LIANA LCBC (HEMOGRAM ONLY)2021-06-28 04:28:17 [...] WBC 0-0 (test code = 413) POCT-GLUCOSE [id number] 21:38:17 Test Item Value Reference Range Interpretation Comments POC-GLUCOSE METER 200 mg/dL 70-110 H : TESTED A T [facility] [address] (BEAKER) (test code = [facility], [facility]) 59401: Farm Operator/Techni kelle ID = [id number] for RO FRANCES, MACKENZIE POCT-GLUCOSE [id number] 18:02:45 Test Item Value Reference Range Interpretation Comments POC-GLUCOSE METER 217 mg/dL 70-110 H : TESTED A T [facility] [address] (BEAKER) (test code = [facility], [facility]) 00948: Farm Operator/Techni kelle ID = [id number] for Ba rrera, Kayla POCT-GLUCOSE [id number] 15:14:18 Test Item Value Reference Range Interpretation Comments POC-GLUCOSE METER 229 mg/dL 70-110 H : TESTED A T [facility] 67[address] (BEAKER) (test code = [facility], 153) 28647: Farm Operator/Techni kelle ID = [id number] for Ba rrera, Kayla POCT-GLUCOSE [id number] 12:20:23 Test Item Value Reference Range Interpretation Comments POC-GLUCOSE METER 160 mg/dL 70-110 H : TESTED A T [facility] [address] (BEAKER) (test code = [facility], [facility]) 13840: Farm Operator/Techni kelle ID = [id number] for Ba rrera, Kayla SARS-CoV2/RT-PCR (Asymptomatic ONLY)2021-06-27 10:39:35 Test Item Value Reference Range Interpretation Comments SARS-COV2/RT-PCR Negative Not Detected, (test code = Negative, See 03652-6) external report for linked test SARS-COV-2 [facility] PERFORM[facility] (test code = 70020-8) BRANDI (test code = Negative result for [...] of the Act. Fact Sheet for Healthcare Providers:https://www.[employer] ideMegaPath.redBus.in/sites/default/f radha/product/documents/F act_Sheet_HC_Providers_L nyk_THTM-XqN-4.pdf Fact Sheet for Healthcare Patients:https://www.[employer] del.redBus.in/sites/default/fi les/product/documents/Fa ct_Sheet_Patients_Lyra_S ARS-CoV-2.pdf Performing Laboratory:[facility] [place] [address] [facility] (Asymptomatic ONLY)2021-06-27 10:39:35 Test Item Value Reference Range Interpretation Comments SARS-COV2/RT-PCR Negative Not Detected, (test code = Negative, See 24599-0) external report for linked test SARS-COV-2 [facility] (test code = 24292-4) BRANDI (test code = Negative result for [...] of the Act. Fact Sheet for Healthcare Providers:https://www.[employer].redBus.in/sites/default/f radha/product/documents/F act_Sheet_HC_Providers_L wvk_TZZR-VqT-8.pdf Fact Sheet for Healthcare Patients:https://www.[employer]/sites/default/fi les/product/documents/Fa ct_Sheet_Patients_Alicia_S ARS-CoV-2.pdf Performing Laboratory:[facility] [place] [address] [facility] (Asymptomatic ONLY)2021-06-27 10:39:35 Test Item Value Reference Range Interpretation Comments SARS-COV2/RT-PCR Negative Not Detected, (test code = Negative, See 53434-8) external report for linked test SARS-COV-2 [facility] (test code = 17795-5) BRANDI (test code = Negative result for [...] of the Act. Fact Sheet for Healthcare Providers:https://www.Saberrl.redBus.in/sites/default/f radha/product/documents/F act_Sheet_HC_Providers_L tqi_AYMU-NtL-7.pdf Fact Sheet for Healthcare Patients:https://www.[employer]/sites/default/fi les/product/documents/Fa ct_Sheet_Patients_Ly_S ARS-CoV-2.pdf Performing Laboratory:[facility] [place], [place] [address] [place], [place] [address]ARS-CoV2/RT-PCR (Asymptomatic ONLY)2021-06-27 10:39:35 Test Item Value Reference Range Interpretation Comments SARS-COV2/RT-PCR Negative Not Detected, (test code = Negative, See 19314-6) external report for linked test SARS-COV-2 [facility] (test code = 40268-7) BRANDI (test code = Negative result for [...] of the Act. Fact Sheet for Healthcare Providers:https://www.Tiipz.com/sites/default/f radha/product/documents/F act_Sheet_HC_Providers_L jzf_MREI-VaA-1.pdf Fact Sheet for Healthcare Patients:https://www.[employer]/sites/default/fi les/product/documents/Fa ct_Sheet_Patients_Lyra_S ARS-CoV-2.pdf Performing Laboratory:[facility] [place] [address] [facility] (Asymptomatic ONLY)2021-06-27 10:39:35 Test Item Value Reference Range Interpretation Comments SARS-COV2/RT-PCR Negative Not Detected, (test code = Negative, See 61328-1) external report for linked test SARS-COV-2 [facility] (test code = 48119-2) BRANDI (test code = Negative result for [...] of the Act. Fact Sheet for Healthcare Providers:https://www.Ti[employer]z.com/sites/default/f radha/product/documents/F act_Sheet_HC_Providers_L psk_UBSZ-WyB-4.pdf Fact Sheet for Healthcare Patients:https://www.[employer]/sites/default/fi les/product/documents/Fa ct_Sheet_Patients_Lyra_S ARS-CoV-2.pdf Performing Laboratory:[facility], [place] [address] [place], [place] [address]ARS-CoV2/RT-PCR (Asymptomatic ONLY)2021-06-27 10:39:35 Test Item Value Reference Range Interpretation Comments SARS-COV2/RT-PCR Negative Not Detected, (test code = Negative, See 18973-6) external report for linked test SARS-COV-2 [facility] (test code = 14756-0) BRANDI (test code = Negative result for [...] of the Act. Fact Sheet for Healthcare Providers:https://www.Tiipz.com/sites/default/f radha/product/documents/F act_Sheet_HC_Providers_L nva_EDAI-TcO-9.pdf Fact Sheet for Healthcare Patients:https://www.[employer]/sites/default/fi les/product/documents/Fa ct_Sheet_Patients_Lyra_S ARS-CoV-2.pdf Performing Laboratory:[facility], [place] [address] [place], [place] [address]ARS-CoV2/RT-PCR (Asymptomatic ONLY)2021-06-27 10:39:35 Test Item Value Reference Range Interpretation Comments SARS-COV2/RT-PCR Negative Not Detected, (test code = Negative, See 43088-0) external report for linked test SARS-COV-2 [facility] (test code = 21126-7) BRANDI (test code = Negative result for [...] of the Act. Fact Sheet for Healthcare Providers:https://www.Tiipz.com/sites/default/f radha/product/documents/F act_Sheet_HC_Providers_L bsj_ZAOW-FzY-4.pdf Fact Sheet for Healthcare Patients:https://www.Alpha[employer]one/sites/default/fi les/product/documents/Fa ct_Sheet_Patients_Lyra_S ARS-CoV-2.pdf Performing Laboratory:[place] [address] [place] [address] [facility] ([facility])2021-06-27 10:39:35 Test Item Value Reference Range Interpretation Comments SARS-COV2/RT-PCR (test Negative Not Detected, Negative, code = 0508087) See external report for linked test SARS-COV-[address] [facility] ALIC[facility] (test code = 6175017) Negative result for this test determines that [...] of the Act.Fact Sheet for Healthcare Prov iders:https://www.[employer]/sites/default/files/product/documents/Fact_Sheet_HC _Upcntjqiu_Oouq_PIFZ-NrU-6.pdfFact Sheet for Healthcare Patients:https://www.[employer]/sites/default/files/product/docume nts/Hmir_Pibqz_Vlpwolvk_Qpzx_MDWY-SmC-9.pdfPerforming Laboratory:[facility], [place] [address]FCJI-HELHIUB METER 2021-06-27 08:35:14 Test Item Value Reference Range Interpretation Comments POC-GLUCOSE METER 99 mg/dL 70-110 : TESTED A T [facility] 67[address] (AKASH) (test code = [place] [facility], 1538) [address]: Farm Operator/Techni kelle ID = [id number] for Kayla Arenas RAD, CHEST, 1 VIEW, NON [id number] 08:17:00Reason for exam:->post-opShould this be performed at the bedside?->Yes [facility] 1955 Sex: FFINAL REPORT Chest, one view HISTORY: Postoperative Comparison: 06/26/2021 Findings: Lungs: Mild bilateral interstitial opacities, likely pulmonary venous congestion. No significant change. Heart: Unchanged moderate cardiomegaly. Pleura: No pleural effusion or pneumothorax. Bones: Unremarkable. Lines/tubes: Unchanged in position. Signed: Erlin Carr MDReport Verified Date/Time: 06/27/2021 08:17:45 Reading Location: [address] Consult Reading Room BASIC METABOLIC [id number] 05:32:33 Test Item Value Reference Range Interpretation [...] S NOT APPLICABLE FOR DIALYSIS PATIEN TS. Farm Operator ID - HIEN AZBKRMZKXJK8935-83-56 05:23:42 Test Item Value Reference Range Interpretation Comments PHOSPHORUS (BEAKER) (test code = 2.2 mg/dL 2.3-4.7 L 604) Farm Operator ID - HIEN HUNTERDDTVMKTIYD7372-11-38 05:23:41 Test Item Value Reference Range Interpretation Comments MAGNESIUM (BEAKER) (test code = 1.8 mg/dL 1.6-2.6 627) Farm Operator ID - HIEN ParrishFeVIM4264-82-43 05:19:04 Test Item Value Reference Range Interpretation Comments PTT (test code = 31233-6) 35.8 See_Comment [ Automated message] The system AccelOne generated this result transmitted ref erence range: 22.5 - 3 6.0 seconds. The re ference range was not u sed to interpret this result as normal/abnor mal. Lab Interpretation (test Normal code = 84616-4) [facility] Test Item Value Reference Range Interpretation Comments PTT (test code = 93758-3) 35.8 See_Comment [ Automated message] The system AccelOne generated this result transmitted ref erence range: 22.5 - 3 6.0 seconds. The re ference range was not u sed to interpret this result as normal/abnor mal. Lab Interpretation (test Normal code = 59584-3) [facility] 05:[facility]04 Test Item Value Reference Range Interpretation Comments PTT (test code = 79963-0) 35.8 See_Comment [ Automated message] The system [employer]elOne generated this result transmitted ref erence range: 22.5 - 3 6.0 seconds. The re ference range was not u sed to interpret this result as normal/abnor mal. Lab Interpretation (test Normal code = 41190-6) [facility] 05:[facility]:04 Test Item Value Reference Range Interpretation Comments PTT (test code = 34637-9) 35.8 See_Comment [ Automated message] The system AccelOne generated this result transmitted ref erence range: 22.5 - 3 6.0 seconds. The re ference range was not u sed to interpret this result as normal/abnor mal. Lab Interpretation (test Normal code = 55011-7) [place] 29123022-03-26 05:19:04 Test Item Value Reference Range Interpretation Comments PTT (test code = 27455-2) 35.8 See_Comment [ Automated message] The system AccelOne generated this result transmitted ref erence range: 22.5 - 3 6.0 seconds. The re ference range was not u sed to interpret this result as normal/abnor mal. Lab Interpretation (test Normal code = 05213-3) [place] 29123022-03-26 05:19:04 Test Item Value Reference Range Interpretation Comments PTT (test code = 08271-5) 35.8 See_Comment [ Automated message] The system AccelOne generated this result transmitted ref erence range: 22.5 - 3 6.0 seconds. The re ference range was not u sed to interpret this result as normal/abnor mal. Lab Interpretation (test Normal code = 59943-1) [place] 29123022-03-26 05:19:04 Test Item Value Reference Range Interpretation Comments PTT (test code = 11717-7) 35.8 See_Comment [ Automated message] The system AccelOne generated this result transmitted ref erence range: 22.5 - 3 6.0 seconds. The re ference range was not u sed to interpret this result as normal/abnor mal. Lab Interpretation (test Normal code = 52873-8) [place] 29123022-03-26 05:19:04 Test Item Value Reference Range Interpretation Comments PTT (test code = 58994-3) 35.8 See_Comment [ Automated message] The system AccelOne generated this result transmitted ref erence range: 22.5 - 3 6.0 seconds. The re ference range was not u sed to interpret this result as normal/abnor mal. Lab Interpretation (test Normal code = 40748-3) [place] 29123022-03-26 05:19:04 Test Item Value Reference Range Interpretation Comments PTT (test code = 77800-9) 35.8 See_Comment [ Automated message] The system AccelOne generated this result transmitted ref erence range: 22.5 - 3 6.0 seconds. The re ference range was not u sed to interpret this result as normal/abnor mal. Lab Interpretation (test Normal code = 44487-3) [facility] 05:[facility]:04 Test Item Value Reference Range Interpretation Comments PTT (test code = 39381-1) 35.8 See_Comment [ Automated message] The system AccelOne generated this result transmitted ref erence range: 22.5 - 3 6.0 seconds. The re ference range was not u sed to interpret this result as normal/abnor mal. Lab Interpretation (test Normal code = 32581-0) [facility] 05:[facility]:04 Test Item Value Reference Range Interpretation Comments PTT (test code = 54082-9) 35.8 See_Comment [ Automated message] The system AccelOne generated this result transmitted ref erence range: 22.5 - 3 6.0 seconds. The re ference range was not u sed to interpret this result as normal/abnor mal. Lab Interpretation (test Normal code = 98781-1) [facility] 05:[facility]:04 Test Item Value Reference Range Interpretation Comments PTT (test code = 55546-4) 35.8 See_Comment [ Automated message] The system AccelOne generated this result transmitted ref erence range: 22.5 - 3 6.0 seconds. The re ference range was not u sed to interpret this result as normal/abnor mal. Lab Interpretation (test Normal code = 45856-9) [facility] Test Item Value Reference Range Interpretation Comments PARTIAL THROMBOPLASTIN TIME 35.8 seconds 22.5-36.0 (BEAKER) (test code = 760) Prothrombin time/[id number] 05:18:23 Test Item Value Reference Interpretation Comments [...] valves. Lab Interpretation Normal (test code = 57422-2) [facility]Proth[facility]/[id number] 05:18:23 Test Item Value Reference Interpretation Comments Range Protime (test code = 13.9 See_Comment [Autom ated 5902-2) message] The system which generated this result transmitted reference range : 11.9 - 14.2 seconds. The reference range was not used to interpret this result as normal/abnormal . INR (test code = 1.09 See_Comment [Automated Terrafugia1-6) message] The system which generated this result [...] valves. Lab Interpretation Normal (test code = 42188-1) [facility] CenterProthrombin time/[id number] 05:18:23 Test Item Value Reference Interpretation Comments [...] valves. Lab Interpretation Normal (test code = 99439-0) [facility] CenterProthrombin time/[id number] 05:18:23 Test Item Value Reference Interpretation Comments [...] valves. Lab Interpretation Normal (test code = 84667-3) [facility] CenterProthrombin time/[id number] 05:18:23 Test Item Value Reference Interpretation Comments [...] valves. Lab Interpretation Normal (test code = 42380-8) [facility] CenterProthrombin time/[id number] 05:18:23 Test Item Value Reference Interpretation Comments Range Protime (test code = 13.9 See_Comment [Autom ated 5902-2) message] The system which generated this result transmitted reference range : 11.9 - 14.2 seconds. The reference range was not used to interpret this result as normal/abnormal . INR (test code = 1.09 See_Comment [Automated Terrafugia1-6) message] The system which generated this result [...] valves. Lab Interpretation Normal (test code = 94708-9) [facility] CenterProthrombin time/[id number] 05:18:23 Test Item Value Reference Interpretation Comments [...] valves. Lab Interpretation Normal (test code = 67330-1) [facility] CenterProthrombin time/[id number] 05:18:23 Test Item Value Reference Interpretation Comments [...] valves. Lab Interpretation Normal (test code = 26829-6) [facility] CenterProthrombin time/[id number] 05:18:23 Test Item Value Reference Interpretation Comments Range Protime (test code = 13.9 See_Comment [Autom ated 5902-2) message] The system which generated this result transmitted reference range : 11.9 - 14.2 seconds. The reference range was not used to interpret this result as normal/abnormal . INR (test code = 1.09 See_Comment [Automated Terrafugia1-6) message] The system which generated this result [...] valves. Lab Interpretation Normal (test code = 68534-1) [facility] CenterProthrombin time/[id number] 05:18:23 Test Item Value Reference Interpretation Comments [...] valves. Lab Interpretation Normal (test code = 38408-4) [facility] CenterProthrombin time/[id number] 05:18:23 Test Item Value Reference Interpretation Comments [...] valves. Lab Interpretation Normal (test code = 47969-1) [facility] CenterProthrombin time/[id number] 05:18:23 Test Item Value Reference Interpretation Comments [...] valves. Lab Interpretation Normal (test code = 38449-7) [facility] CenterPROTHROMBIN TIME/[id number] 05:18:23 Test Item Value Reference Range Interpretation Comments PROTIME (BEAKER) 13.9 seconds 11.9-14.2 (test code = 759) INR (BEAKER) (test 1.09 See_Comment [Automat ed message] code = 370) The system AccelOne generated this result transmitted ref erence range: [...] WBC 0-0 (test code = 413) POCT-GLUCOSE [id number] 21:11:10 Test Item Value Reference Range Interpretation Comments POC-GLUCOSE METER 158 mg/dL 70-110 H : TESTED A T [facility] 6720 (BEAKER) (test code = [place] [facility], 1538) [address]: Farm Operator/Techni kelle ID = [id number] for Re yes, Sairy POCT-GLUCOSE [id number] 19:06:56 Test Item Value Reference Range Interpretation Comments POC-GLUCOSE METER 113 mg/dL 70-110 H : TESTED A T [facility] 6720 (BEAKER) (test code GISELLA [facility], = 1538) [address]: Farm Operator/Techni kelle ID = [id number] for Sutt on, Fadi Hemoglobin and tqxkumordp5286-87-85 11:43:32 Test Item Value Reference Range Interpretation [...] = 4544-3) BRANDI (test code = BRANDI) Farm Operator ID - [id number] Lab Interpretation Abnormal (test code = 94372-5) [facility] CenterHemoglobin and bwyjxolwnu7643-26-25 11:43:32 Test Item Value Reference Range Interpretation [...] = 4544-3) BRANDI (test code = BRANDI) Farm Operator ID - [id number] Lab Interpretation Abnormal (test code = 64892-9) [facility] CenterHemoglobin and rrojtrwazy7021-96-46 11:43:32 Test Item Value Reference Range Interpretation [...] = 4544-3) BRANDI (test code = BRANDI) Farm Operator ID - [id number] Lab Interpretation Abnormal (test code = 91436-3) [facility] CenterHemoglobin and iwcaodvvqo8978-84-35 11:43:32 Test Item Value Reference Range Interpretation [...] = 4544-3) BRANDI (test code = BRANDI) Farm Operator ID - [id number] Lab Interpretation Abnormal (test code = 25846-4) [facility] CenterHemoglobin and xnottdqjeu8989-51-45 11:43:32 Test Item Value Reference Range Interpretation [...] = 4544-3) BRANDI (test code = BRANDI) Farm Operator ID - [id number] Lab Interpretation Abnormal (test code = 69379-7) [facility] CenterHemoglobin and quloozvzgm9681-25-83 11:43:32 Test Item Value Reference Range Interpretation [...] = 4544-3) BRANDI (test code = BRANDI) Farm Operator ID - [id number] Lab Interpretation Abnormal (test code = 55813-0) [facility] CenterHemoglobin and zicviftwvn0691-80-02 11:43:32 Test Item Value Reference Range Interpretation [...] = 4544-3) BRANDI (test code = BRANDI) Farm Operator ID - [id number] Lab Interpretation Abnormal (test code = 85713-9) [facility] CenterHemoglobin and owkkuwigmw6899-00-53 11:43:32 Test Item Value Reference Range Interpretation [...] = 4544-3) BRANDI (test code = BRANDI) Farm Operator ID - [id number] Lab Interpretation Abnormal (test code = 64461-2) [facility] CenterHemoglobin and hayswsssto7792-03-27 11:43:32 Test Item Value Reference Range Interpretation [...] = 4544-3) BRANDI (test code = BRANDI) Farm Operator ID - [id number] Lab Interpretation Abnormal (test code = 39425-6) [facility] CenterHemoglobin and gzpcnfedhq5079-28-81 11:43:32 Test Item Value Reference Range Interpretation [...] = 4544-3) BRANDI (test code = BRANDI) Farm Operator ID - [id number] Lab Interpretation Abnormal (test code = 12441-8) [facility] CenterHemoglobin and fmfthbtgae5499-27-59 11:43:32 Test Item Value Reference Range Interpretation [...] = 4544-3) BRANDI (test code = BRANDI) Farm Operator ID - [id number] Lab Interpretation Abnormal (test code = 62578-6) [facility] CenterHemoglobin and sslauxguzp2548-24-29 11:43:32 Test Item Value Reference Range Interpretation [...] = 4544-3) BRANDI (test code = BRANDI) Farm Operator ID - [id number] Lab Interpretation Abnormal (test code = 21951-1) [facility] CenterHemoglobin and wafsndfdzi0092-38-48 11:43:32 Test Item Value Reference Range Interpretation [...] = 4544-3) BRANDI (test code = BRANDI) Farm Operator ID - [id number] Lab Interpretation Abnormal (test code = 12948-4) [facility] CenterHEMOGLOBIN AND PEWGWKGUFF5189-46-64 11:43:32 Test Item Value Reference Range Interpretation Comments HEMOGLOBIN (BEAKER) (test code = 8.5 GM/DL 11.2-15.7 L 410) HEMATOCRIT (BEAKER) (test code = 26.8 % 34.1-44.9 L 411) Farm Operator ID - [id number]-Glucose zbvfk4819-03-15 11:26:36 Test Item Value Reference Range Interpretation Comments POC-Glucose Meter (test 126 mg/dL 70-110 H : TE STED AT [facility] code = 1537) [address] [facility], 770 30: Farm Operator/Techni kelle ID = [id number] for Ton (contract)Meeta Lab Interpretation (test Abnormal code = 54693-1) [facility] CenterPOCT-GLUCOSE WCMQY6851-63-49 11:26:36 Test Item Value Reference Range Interpretation Comments POC-GLUCOSE METER 126 mg/dL 70-110 H : TESTED A T [facility] 6720 (BEAKER) (test code = YUDY [place] [facility], 1538) [address]: Farm Operator/Techni kelle ID = [id number] for Brando wayne (contract)Marilee nicko POCT-GLUCOSE YFZZW4613-72-93 09:38:49 Test Item Value Reference Range Interpretation Comments POC-GLUCOSE METER 139 mg/dL 70-110 H : TESTED A T [facility] 6720 (BEAKER) (test code = YUDY [place] [facility], 1538) [address]: Farm Operator/Techni kelle ID = [id number] for SWEETIE GASPAR, TUNNELED CATHETER AXUUCDSLJ4864-65-98 08:44:00Reason for Central Line/PICC?->> 21 days of IV infusionReason for exam:->needs antibiotics > 10 days, ESRD, Nephrology does not approve PICC or midline. [facility] 1955 [...] MDReport Verified Date/Time: 06/26/2021 08:44:45 Reading Location: [place] [address] Angio Body Reading Room RAD, CHEST, 1 VIEW, NON [id number] 08:08:00Reason for exam:->post-opShould this be performed at the bedside?->Yes [facility] : 1955 [...] MDReport Verified Date/Time: 06/26/2021 08:08:37 Reading Location: [facility] Radiology Reading Room Prepare Leuko-Red [id number] 06:01:00 Test Item Value Reference Range Interpretation Comments CROSSMATCH (test code = 2264) COMPATIBLE Unit ABO (test code = O Pos 1431842) UNIT NUMBER (test code = [id number] 934-0) Status (test code = 9085798) ISSUED Blood Bank Product (test code RED BLOOD CELLS = 2263) PRODUCT CODE (test code = V1390D74 933-2) [facility] CenterPrepare Leuko-Red [id number] 06:01:00 Test Item Value Reference Range Interpretation Comments CROSSMATCH (test code = 2264) COMPATIBLE Unit ABO (test code = O Pos 6013328) UNIT NUMBER (test code = [id number] 934-0) Status (test code = 7456153) ISSUED Blood Bank Product (test code RED BLOOD CELLS = 2263) PRODUCT CODE (test code = E8257G00 933-2) [facility] CenterBasic Metabolic Njylk5506-47-60 05:17:06 Test Item Value Reference Range Interpretation Comments Sodium (test code = 139 meq/L 600-505 8632-2) Potassium (test code = 3.7 meq/L 3.5-5.1 2823-3) Chloride (test code = 104 meq/L 98-107 2075-0) CO2 (test code = 23 meq/L 22-29 8-9) BUN (test code = 36 mg/dL 7-21 H 3094-0) Creatinine (test code 5.14 mg/dL 0.57-1.25 H = 2160-0) Glucose (test code = 170 mg/dL 70-105 H 2345-7) Calcium (test code = 8.2 mg/dL 8.4-10.2 L 33097-7) EGFR (test code = 8 mL/min/1.73 [place] [address]-4) NOT ACCURATE CREATININE CLEARANCE IN PREDICTING GLOMERULAR FILTRATION RATE . ESTIMATED GFR I S NOT APPLICABLE FOR DIALYSIS PATIENTS. BRANDI (test code = BRANDI) Farm Operator ID - RAKAN W Lab Interpretation Abnormal (test code = 72665-0) [facility] Metabolic Efwbc9130-96-19 05:17:06 Test Item Value Reference Range Interpretation Comments Sodium (test code = 139 meq/L 343-896 6405-2) Potassium (test code = 3.7 meq/L 3.5-5.1 2823-3) Chloride (test code = 104 meq/L 98-107 2075-0) CO2 (test code = 23 meq/L 22-29 8-9) BUN (test code = 36 mg/dL 7-21 H 3094-0) Creatinine (test code 5.14 mg/dL 0.57-1.25 H = 2160-0) Glucose (test code = 170 mg/dL 70-105 H 2345-7) Calcium (test code = 8.2 mg/dL 8.4-10.2 L 81122-8) EGFR (test code = 8 mL/min/1.[place] [address]-9) NOT ACCURATE CREATININE CLEARANCE IN PREDICTING GLOMERULAR FILTRATION RATE . ESTIMATED GFR I S NOT APPLICABLE FOR DIALYSIS PATIENTS. BRANDI (test code = BRANDI) Farm Operator ID - RAKAN W Lab Interpretation Abnormal (test code = 04438-4) [facility] METABOLIC [id number] 05:17:06 Test Item Value Reference Range Interpretation [...] S NOT APPLICABLE FOR DIALYSIS PATIEN TS. Farm Operator ID - RAKAN OReswiugczp0485-36-39 05:00:22 Test Item Value Reference Range Interpretation Comments Phosphorus (test code = 3.7 mg/dL 2.3-4.7 2777-1) BRANDI (test code = BRANDI) Farm Operator ID - RAKAN W Lab Interpretation (test Normal code = 77199-8) [facility] CenterPhosphorus2022-03-[facility] 05:00:22 Test Item Value Reference Range Interpretation Comments Phosphorus (test code = 3.7 mg/dL 2.3-4.7 2777-1) BRANDI (test code = BRANDI) Farm Operator ID - RAKAN W Lab Interpretation (test Normal code = 32861-1) [facility] CenterPHOSPHORUS2022-03-25 05:00:22 Test Item Value Reference Range Interpretation Comments PHOSPHORUS (BEAKER) (test code = 3.7 mg/dL 2.3-4.7 604) Farm Operator ID - RAKAN CTfkqjqjxn1740-87-52 05:00:21 Test Item Value Reference Range Interpretation Comments Magnesium (test code = 2.2 mg/dL 1.6-2.6 25884-4) BRANDI (test code = BRANDI) Farm Operator ID - RAKAN W Lab Interpretation (test Normal code = 39589-1) [facility] CenterMagnesium2022-03-25 05:00:21 Test Item Value Reference Range Interpretation Comments Magnesium (test code = 2.2 mg/dL 1.6-2.6 04468-7) BRANDI (test code = BRANDI) Farm Operator ID - RAKAN [place] Lab Interpretation (test Normal code = 34984-9) [facility] CenterMAGNESIUM2022-03-25 05:00:21 Test Item Value Reference Range Interpretation Comments MAGNESIUM (AKASH) (test code = 2.2 mg/dL 1.6-2.6 627) Farm Operator ID - RAKAN QfSRY1208-37-38 04:21:04 Test Item Value Reference Range Interpretation Comments PTT (test code = 32431-8) 35.7 See_Comment [ Automated message] The system [employer]elOne generated this result transmitted ref erence range: 22.5 - 3 6.0 seconds. The re ference range was not u sed to interpret this result as normal/abnor mal. Lab Interpretation (test Normal code = 21657-9) [facility] CenteraPTT2022-03-25 04:21:04 Test Item Value Reference Range Interpretation Comments PTT (test code = 80365-1) 35.7 See_Comment [ Automated message] The system [employer]elOne generated this result transmitted ref erence range: 22.5 - 3 6.0 seconds. The re ference range was not u sed to interpret this result as normal/abnor mal. Lab Interpretation (test Normal code = 91002-8) [facility] CenterAPTT2022-03-25 04:21:04 Test Item Value Reference Range Interpretation Comments PARTIAL THROMBOPLASTIN TIME 35.7 seconds 22.5-36.0 (BEAKER) (test code = 760) Prothrombin time/[id number] 04:20:24 Test Item Value Reference Interpretation Comments Range Protime (test code = 14.0 See_Comment [Autom ated 6712-2) message] The system which generated this result transmitted reference range : 11.9 - 14.2 seconds. The reference range was not used to interpret this result as normal/abnormal . INR (test code = 1.10 See_Comment [Automated 8681-6) message] The system which generated this result [...] valves. Lab Interpretation Normal (test code = 84411-4) [facility] CenterProthrombin time/[id number] 04:20:24 Test Item Value Reference Interpretation Comments [...] valves. Lab Interpretation Normal (test code = 83756-8) [facility] CenterPROTHROMBIN TIME/[id number] 04:20:24 Test Item Value Reference Range Interpretation Comments PROTIME (BEAKER) 14.0 seconds 11.9-14.2 (test code = 759) INR (BEAKER) (test 1.10 See_Comment [Automat ed message] code = 370) The system [employer]One generated this result transmitted ref erence range: [...] 4.0 See_Comment [A utomated message] The system [employer]One generated this result transmitted ref erence range: 3.5 - 10 .5 K/L. The refe rence range was not u sed to interpret this result as normal/abnor mal. RBC (test code = 789-8) 2.54 See_Comment L [Au tomated message] The system [employer]One generated this result transmitted ref erence range: 3.93 - 5 .22 M/L. The refe rence range was not u sed to interpret this result as normal/abnor mal. MCHC (test code = 786-4) 31.2 See_Comment L [A utomated message] The system [employer]One generated this result transmitted ref erence range: [...] L [Aut omated message] 777-3) The system [employer] generated this result transmitted ref erence range: 150 - 45 0 K/CU MM. The referen ce range was not u sed to interpret this result as normal/abnor mal. MPV (test code = 10.7 fL 9.4-12.3 81870-8) nRBC (test code = 413) 0 See_Comment [Aut omated message] The system [employer] generated this result transmitted ref erence range: 0 - 0 /1 00 WBC. The refere nce range was not u sed to interpret this result as normal/abnor mal. Lab Interpretation (test Abnormal code = 93324-4) [facility] (Hemogram only)2021-06-26 04:04:58 Test Item Value Reference Range Interpretation Comments WBC (test code = 6690-2) 4.0 See_Comment [A utomated message] The system [employer] generated this result transmitted ref erence range: 3.5 - 10 .5 K/L. The refe rence range was not u sed to interpret this result as normal/abnor mal. RBC (test code = 789-8) 2.54 See_Comment L [Au tomated message] The system [employer]One generated this result transmitted ref erence range: 3.93 - 5 .22 M/L. The refe rence range was not u sed to interpret this result as normal/abnor mal. MCHC (test code = 786-4) 31.2 See_Comment L [A utomated message] The system [employer] generated this result transmitted ref erence range: [...] L [Aut omated message] 777-3) The system [employer] generated this result transmitted ref erence range: 150 - 45 0 K/CU MM. The referen ce range was not u sed to interpret this result as normal/abnor mal. MPV (test code = 10.7 fL 9.4-12.3 55852-8) nRBC (test code = 413) 0 See_Comment [Aut omated message] The system [employer] generated this result transmitted ref erence range: 0 - 0 /1 00 WBC. The refere nce range was not u sed to interpret this result as normal/abnor mal. Lab Interpretation (test Abnormal code = 50198-1) [facility] (HEMOGRAM ONLY)2021-06-26 04:04:58 Test Item Value Reference [...] WBC 0-0 (test code = 413) POC-Glucose [id number] 21:57:30 Test Item Value Reference Range Interpretation Comments POC-Glucose Meter (test 204 mg/dL 70-110 H : TE STED AT [facility] code = 1538) [address] [facility], 770 30: Farm Operator/Techni kelle ID = [id number] for Rodríguez Cancino Lab Interpretation (test Abnormal code = 73340-9) [facility] [id number] 21:57:30 Test Item Value Reference Range Interpretation Comments POC-GLUCOSE METER 204 mg/dL 70-110 H : TESTED A T [facility] 6720 (BEAKER) (test code = QUIQUEANTELMO R [facility], 1538) [address]: Farm Operator/Techni kelle ID = [id number] for Ad Rodríguez warner Type and screen, automated ([facility] Lab)2021-06-25 19:44:00 Test Item Value Reference Range Interpretation Comments ABO/RH AUTOMATED (BEAKER) (test O POSITIVE code = 2260) Ab Scrn (test code = 890-4) NEGATIVE [facility])2021-06-25 19:44:00 Test Item Value Reference Range Interpretation Comments ABO/RH AUTOMATED (BEAKER) (test O POSITIVE code = 2260) Ab Scrn (test code = 890-4) NEGATIVE [facility])2021-06-25 19:44:00 Test Item Value Reference Range Interpretation Comments ABO/RH AUTOMATED (BEAKER) (test O POSITIVE code = 2260) Ab Scrn (test code = 890-4) NE[facility]IVE [facility])2021-06-25 19:44:00 Test Item Value Reference Range Interpretation Comments ABO/RH AUTOMATED (BEAKER) (test O POSITIVE code = 2260) Ab Scrn (test code = 890-4) NE[facility]IVE [facility]2021-06-25 19:44:00 Test Item Value Reference Range Interpretation Comments ABO/RH AUTOMATED (BEAKER) (test O POSITIVE code = 2260) Ab Scrn (test code = 890-4) [facility]IVE [facility]2021-06-25 19:44:00 Test Item Value Reference Range Interpretation Comments ABO/RH AUTOMATED (BEAKER) (test O POSITIVE code = 2260) Ab Scrn (test code = 890-4) NE[facility]IVE [facility])2021-06-25 19:44:00 Test Item Value Reference Range Interpretation Comments ABO/RH AUTOMATED (BEAKER) (test O POSITIVE code = 2260) Ab Scrn (test code = 890-4) NE[facility]IVE [facility])2021-06-25 19:44:00 Test Item Value Reference Range Interpretation Comments ABO/RH AUTOMATED (BEAKER) (test O POSITIVE code = 2260) Ab Scrn (test code = 890-4) NE[facility]IVE [facility])2021-06-25 19:44:00 Test Item Value Reference Range Interpretation Comments ABO/RH AUTOMATED (BEAKER) (test O POSITIVE code = 2260) Ab Scrn (test code = 890-4) [facility]IVE [facility]2021-06-25 19:44:00 Test Item Value Reference Range Interpretation Comments ABO/RH AUTOMATED (BEAKER) (test O POSITIVE code = 2260) Ab Scrn (test code = 890-4) NEGATIVE [facility] ([facility])2021-06-25 19:44:00 Test Item Value Reference Range Interpretation Comments ABO/RH AUTOMATED (BEAKER) (test O POSITIVE code = 2260) Ab Scrn (test code = 890-4) NEGATIVE [facility] automated ([facility])2021-06-25 19:44:00 Test Item Value Reference Range Interpretation Comments ABO/RH AUTOMATED (BEAKER) (test O POSITIVE code = 2260) Ab Scrn (test code = 890-4) NEGATIVE [facility] automated ([facility])2021-06-25 19:44:00 Test Item Value Reference Range Interpretation Comments ABO/RH AUTOMATED (BEAKER) (test O POSITIVE code = 2260) Ab Scrn (test code = 890-4) NEGATIVE [facility]Type [facility]2021-06-25 19:44:00 Test Item Value Reference Range Interpretation Comments ABO/RH AUTOMATED (BEAKER) (test O POSITIVE code = 2260) Ab Scrn (test code = 890-4) NEGATIVE [facility] [id number] 11:31:12 Test Item Value Reference Range Interpretation Comments POC-GLUCOSE METER 130 mg/dL 70-110 H : TESTED A T [facility] 6720 (BEAKER) (test code = YUDY Vaca [facility], 1538) [address]: Farm Operator/Techni kelle ID = [id number] for PH EN-[place] (V), INES RAD, CHEST, 1 VIEW, NON [id number] 09:04:00Reason for exam:->post-opShould this be performed at the bedside?->Yes [facility] 1955 Sex: FFINAL REPORT Chest AP portable Comparison exam: 06/24/2021 History provided: Postopevaluation Heart size magnified by projection. Lungs grossly free of acute disease and vascularity normal. Signed: Wero Alvarez Verified Date/Time: 06/25/2021 09:04:07 Reading Location: [facility] Diagnostic Imaging Reading Room - [facility] 1.310.12 BASIC METABOLIC [id number] 03:58:40 Test Item Value Reference Range Interpretation [...] S NOT APPLICABLE FOR DIALYSIS PATIEN TS. Farm Operator ID - [id number] 03:40:57 Test Item Value Reference Range Interpretation Comments PARTIAL THROMBOPLASTIN TIME 46.7 seconds 22.5-36.0 H (BEAKER) (test code = 760) PROTHROMBIN TIME/[id number] 03:39:54 Test Item Value Reference Range Interpretation Comments PROTIME (BEAKER) 13.6 seconds 11.9-14.2 (test code = 759) INR (BEAKER) (test 1.05 See_Comment [Automat ed message] code = 370) The system [employer] generated this result transmitted ref erence range: <=5.90. The reference range was not used to int erpret this result as normal/abnormal . RECOMMENDED COUMADIN/WARFARIN INR THERAPY RANGESSTANDARD DOSE: 2.0 - 3.0 Includes: PROPHYLAXIS for venous thrombosis, systemic embolization; TREATMENT for venous thrombosis and/or pulmonary embolus.HIGH RISK: Target INR is 2.5-3.5 for patients with mechanical heart valves.[id number] 03:34:10 Test Item Value Reference Range Interpretation Comments PHOSPHORUS (BEAKER) (test code = 3.8 mg/dL 2.3-4.7 604) Farm Operator ID - [id number] 03:34:09 Test Item Value Reference Range Interpretation Comments MAGNESIUM (BEAKER) (test code = 2.3 mg/dL 1.6-2.6 627) Farm Operator ID - [id number] (HEMOGRAM ONLY)2021-06-25 03:11:29 Test [...] WBC 0-0 (test code = 413) POCT-GLUCOSE [id number] 22:14:10 Test Item Value Reference Range Interpretation Comments POC-GLUCOSE METER 185 mg/dL 70-110 H : TESTED A T [facility] 6720 (BEAKER) (test code = YUDY [place], 1538) [address]: Farm Operator/Techni kelle ID = [id number] for En nisSheryl RAD, ABDOMEN/KUB, 1 VIEW [id number] 19:49:00Reason for exam:->concern for ileusShould this be performed at the bedside?->Yes [facility] 1955 Sex: FFINAL REPORT Abdomen dated 06/24/2021 Comment:Abdomen was examined in the supine and erect position. There is paucity of air in the small and large bowel. No mass, pathological calcification, or free air is present. Impression: Nonspecific gas pattern. Signed: Andrew Palmereport Verified Date/Time: 06/24/2021 19:49:12 CT, CTA CORONARY, W/ YOEL [id number] 16:36:00 [facility] : 1955 Sex: FAddendum BeginsREPORT STATUS:A Impression: Mildly nodular appearance of the liver margins. Please correlate with underlying liver function tests to exclude chronic liver disease. No abnormally enhancing lesions in the liver parenchyma.Low-density lesion in the right lobe of the thyroid gland. Recommend dedicated thyroid ultrasound for further evaluation outpatient setting.Other findings as mentioned in the vice president of software development report.No additional significant nonvascular findings identified. Signed: Lise Andrade MDReport Verified Date/Time: 06/24/2021 16:36:13 Reading Location: [address] Radiology Reading RoomAddendum EndsFINAL REPORT CT [...] (< 1mm) were obtained. Please refer to [facility] regarding the medication administered for this [...] erformed. Coronary calcification was analyzed using the ASSET4 system software. These are the results of [...] to the RCA is identified. Regarding the nondalton coronary arteries, diffuse calcification identified the proximal LCx making accurate as sessment limited. 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 NON-VASCULAR: A 1.2 cm hypodensity is identified in the right thyroid lobe at image 7. An addendum will be dictated thereafter by Study Director Radiologist if dedicated thyroid ultrasound scan is [...] An addendum will be dictated by the Study Director Radiologist regarding the nonvascular findings. THE REPORT WILL ONLY BE CONSIDERED COMPLETE AFTER THE ADDENDUM HAS BEEN DICTATED. Signed: Dung Fletchereport Verified Date/Time: 06/23/2021 08:29:48 POCT-GLUCOSE [id number] 16:19:22 Test Item Value Reference Range Interpretation Comments POC-GLUCOSE METER 108 mg/dL 70-110 : TESTED A T 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 = [id number] for Aditya brewer (contract)[facility] [employer] [id number] 15:29:08 Test Item Value Reference Range Interpretation Comments Case Report (test code Surgical Pathology = 104) Report Case: [id number] Authorizing Provider: Logan Russo MD Collected: 06/18/2021 11:41 AM Ordering Location: [facility] Received: 06/19/2021 03:44 PM PERIOPERATIVE SERVICES Pathologist: Tom Paige MD Specimen: Mass, MITRAL VALVE MASS- for MICROBIOLOGY then pls send to Pathology DIAGNOSIS (test code = [id number] 3220) uZzEwMzNcZnRuYmpcdWMxIH tccnRmMVxlcGljOTYwMVxhb iGeCESckBCnM1TchghxKZno RF2kAY3tkSqaiKRmxDIrSYH jJzRhi1grl131kZPia9paDT XAcqvwzXo1bBhnL02hp0R0S jlyW12itRBfGJB4PTMmHWQi hPGsACXuEIB6DNRwqKEiJ4c rTVOvMC9jowudZGjkDHloRD UvlUG9NGSjeILgR1EcPMRbX VqwVZNotlq6SoQzDq7zlOEx eTcyMFxwYXJkXHBsYWluXGZ pWtPmOY4hUEKLEvIiPR9NKP JBTCBWQUxWRSwgREVCUklER E1IFbAiKG7AJRBMDXYGRdum cGFyIEZJQlJJTiwgQUNVVEU iFV5IFEBSNVEDH9OHLHNTT1 PEV5ZCAVXRRsGkW3XVM0hXS XVHLJbXUu2sjXKcIAXAXZVZ WVeaH4XPBQ9LWKAONxQKVgX JY8OKM8TANZ0SH5KFZCFOPz KUCN0JKL5KCJUDSZXICyQEW YCVQkJPK5yFM1dmUDleKFNg U58YHzJJQPZYM55sG5pYQRQ EAGUWV8DAK4nNB6wFUZzoF1 TDWZnSJbGBAjGKNNXMHA9GR sMNRB6rWRHgcm00ZZX7GeCy n0U8XAU7KXSiUINja4duWGL mbGFuZzEwMzNcZnRuYmpcdW SlADCkFdZfz0rfu305hMBmz 3leYQDePmI3gRUnGOQraMIf A928WNVmDWwnx1zgu7YwZDY liXLyn5J5LBXBvscgiAb5zZ bgZ63tw7P1BnoaU1tiBEAkU IMuR9DzGQ6eCIVvNbs8MZP9 GZH4GBLnWMUmH8BbZB7bCLG yoOViWRs2x5bmuZanZJTzDU Y3j0rwXXezhpMhFC0iry4hk Mn7p4pzbiQkHGAiWVLavIWF YVKiI1MurOthWw5svUi3wXk bVeagUNN0Zer7LY0otn25hm w8kOfpJDFpoymoSrV0SGouZ GYllenjXLu5HOlsNMLihZE0 YVExjQDxF6OePAZjOX8azjp 5PAZ3FCbvEFPjZvS4MRYhmN JnCPOknVtcFMkop220JLD1Q zAzIG9zC8Tkr0L1aG2rsXXq FEYmjXKaVyWvUGTlri9oyLD pVFsrq3GkZZO5laK0zICfsQ DhKIMqHbX2JUeuKP9zzy45H YKqAZD2pj7yrDUqlYskkhTc aLYiMZtaV1WpKFXjf757WYD dH5XcUSAoc6Z2sqDfEvMiXL CtyAV8zaW5YIFfTG1kithit 8pqURwkVMrrWBMhpoS8nlP2 PHDgzXZvQ0HuxV1oEXZvTU7 zbpolt7gzDLZ2UYqxHPEwKP J0DpQqHIIrh0Lnriy2GaAdc 7AfzHFrYAsiO13ea355AVFr tpVtI1tfxECismjaeNFrudj xLNbupvM6PZPmQMbowdjmAS JcTKfbA6dzRiYbRWVvfWgoY Bjzr1PgPLZnCMKmYsMqtHWd KWXyAgk0VQJcsLVdRZUxQvV zR0dethiyPkGSJGMwq3rxZ2 ykpPWBmYSfV9QhLFyngqHkK YnmECfvRzXuFXKbPC69NFO9 GZCtxd89 CPT Code(s) (test code c0anfRJvCKNvlJQ4XlVgJJU = 3359) ta1nlv8RyuQNsaXJvBPbqdK GskhRbid76aAC7bC25YN5iK SBnUtF2BMMrigK2Rml0AWXa XHNyuGQjY739w8vbb9dtkqE scGC5gHfjUQTsogveJtM4CS taBVSxqctdXRp1OXxuWOSvm LN3TTXwwPYuF4RsROAhAW1s htr4KGT8UFxgHMRcXkA4XLW rgLQkRKAyzPbeWLjxg686QH E0ByBbCVVugjLtjZzijL7xF rGuGEG2WIUpZVsbSZwsPCYJ U2lhKKA1 CLINICAL HISTORY (test j0qcoBWmOSZfuMM4WkSbNFR code = 3356) lm9ebv8DsnPAhbSTfMNggyC BbtbSqwp09lVO2bM32OD8dD EItWwI5UDOwnvX3Ecz0DICq FEZobSVuH535j3nmm3rrigO iiOG4zGdvTQUsiobxUsL4JI shSBTszjlmWAq2QBkkWDCtt VG2XOOlsBCpK4CxTDEtGY4v gev9HKT3SHwjGRBuDxI3LOY mgSCqNDUjrQsaBJscx447XG L6LcAgHSCljcHzaBenjD2pD kAnBRHFgzTwD4VrCIe0sRMy cGFyfQ== SPECIMEN SOURCE (test f2yndLKlLJKnjTT5TnOaVZI code = 3377) gr6wkp0NvzERlbMFfGPlpoM PcmgHzvd81zNX9fI82TJ1sS FWjJnQ5TSRkrmL3Oqr8RUAr DYQtzPRsW269r7yvq0qpobQ ioLR4yKvcEIScwmcnEkL7GS ojFMCejczbBSe6ZZzfMGEpc PT6WYGxmJEjK0ZrQXFsPA2m mcd3MQL2PJkiJVByElN3STX clTNoLQMleJriAZqbf266WR U2NeWtDZKwtyNrqIzujS1kJ nMyMCBNaXRyYWwgdmFsdmVc cGFyfQ== GROSS DESCRIPTION x1neoQHdQQLqiZPjDzHcFLL (test code = 3366) rDFKig6tzCALekUEbEyDfVo NcZnRuYmpcdWMxXGRlZmYwe 1ncn349wPZel0jyNOCdPvE6 gOFxVMDqkQYiY698RLKjKBd tt5joq4FoWENowIMbd9S7VP UDerqjmSd0cXjzX15ei2Y5H ktzK5upELItFBGwH1KhKS2w VWXdIqm0DAF0RZI8IPQhOWM xN4SvZD5bCSYwrJWrDUp8j0 bzbEwhBFAqDDO2o8gxAPteo eRpWO0xgx1lxDi5j3mguaNo RJGdAISsqNRKKRHzG8QsrSn bIc3ojDg0pBumIouwLFX5Pt e8OY9xpz48kcv1aJvzREDmq nrqFiK5TQccTWTtgoljVLa3 MFxtYXJnbDcyMFxtYXJncjc yMFxtYXJndDcyMFxtYXJnYj elFSgnJKFsENN0URaor830L VR5IWmod9xmj3uzcKEeJcy4 KCBcRePyLvikNYvmr4Brf7c nACAriy9kXXG5jGQbzEmbx6 K2oLMsPNKkcUZdskSuZLWdK qE9XZggRB5ewt55HRVgBRW6 rc9iuTYyqFyxinRaxTQcKRu zK8TnZTHpl843INCuF4EhJJ Yym6S4gzUpCwJhDUGdvWB5v iD3OCSjGFo4jJCkppG5hpDz hBOsJ1mgwF41QqLksSZtN6K syK84RpDljCZvI1TjaW64In GdqJXpI4OvkY47SdBdgHNfD PNwlLPzYe0lkDSdtBMdt1Sm bZRxZOaaL76mn240WOPaolD jS7htuAMcnqktrLHocemmIF geneQ6SCLnRVCsMKpqZKPtH GZzMjBcbGFuZzEwMzNcaGlj yFniWXqyPbHgRJZxWLqdL5z cZjBcZnMyMCBBLiAgUmVjZW g3AYLtwR0vBr5ndKNqdA0on VXvGDmmWUD0xCQrXXZiGKMs QSZpVD40Y4VwdP2hq3StRYC ql55xZX2vVDThxHFmQQjjzt FsdmUgbWFzcyIgaXMgYSAxL iOhF66amE2kwJCoN4VxNHH2 IDAuMyBjbSBpbiBkaWFtZXR qxdQ3LU1pbTqbkbY3lADjhH XoOGwuiIFtYNkpLRS7Yl8xz IInNXQdhoS0l7GpMYkwXNXe t8LwrDYaICRlDmztXQZnmNC xECKqnxCdnIgcfJ7tDjOyVv MyNFxwbGFpblxmMVxmczIwX NdoastmQIFoSLhqN5mpBuGj OUQkkOitZTjfq3EhAYHsITZ aGrXsIQTiJGEdn5jjDJ00UE xwbGFpblxmMFxmczIwXGxhb hniHONgPQqxX2atJiZpWQQf xItzSIugo8EhHRZtCQAiYhO ccGFyfQ== MICROSCOPIC s8fwrDOuVVDvpAS1DlNdLVN DESCRIPTION (test code pf9bgj0WwjGEqoYLiIYpwyF = 3371) RxflJkqf29iDO8sI78MW9jE TCbQmU4CEVshzF0Egg9BAIo BVAksSRuA317w8bad2dvbnY evHR0mLmwZQCetjffBdH4ZI kbOFAoytfcODv6KOunINYvx ZT1KOIejNXxY1NlHIKdUU7i wpu1DVB9OMlhVAQlQmV5PIE gnTHzPXIvgJmsATrvu705TY O8YpQtYZWljxNxzJpqrG9qC kMuJQYJZGMyk6KiKEJzAAWy cn0= SPECIAL STUDIES (test v7oieYElBHGsiAV5JeEgOXD code = 3376) ll2iej6YwwMBnnRPzRQmopY UybkMdqb21gNJ4vE64TE5cM UXqYiX0KNIwxqL2Jub6NABp CWMhbDPtD443KODeICDxyDa hlhh7mN58BKKamO2zsMDoFB krpaDlYHcxxrGzvhCnSeo7J FD0xRnvDZSjzrjuGwR5GBqw EURfptjoHDm5MClrAJOfoLU 0DMPhbNZlE3JsLMUeWM8rmn d6WOZ4WSnySISoFzO1QGWhw EOfILIurRonVMwcg043PCT1 EhUmWJJjwnKteGjerG5vKyD cZnMyMlxjZjEgVGhlIGludG McyOOhfMM1tX3jPK9bDNPfo ATdO6LcRECzroHfcESwXVQ8 tHElmJOgNX2tSZjnuDEkw9e kb0BwM5qjnPfwvWO1HC2nNR VcCAOdJUxjc3NooU8mOhjxX WYnZ5UmCGKXC9MESSRsCOEA Lm0RZySFUaUmKkBAYb8fCUy NUywgQUZCXHBhclxwYXJkXG BsVOFAs587vw4rNMHtwSRma aZIaRFsoH5fGIacMXqbZEvz iMFwVUeuv0qgAOFls3p7rCF bZQZvlwMpv5jeHZofplIbCF LusERoaJAyVVPro57tDYpvh IcbmIprUYObe8UkuShgt9Ea RdRxDQtol8KqA27ffMRjcQQ pjKkgLZUtudEmBQGxt64pr4 otPJXvMmC9tMJamJM2yXRme LIym4PpnEgfOWQib8uwLDBm sc5nlzfqgCXca5FjoV5gmiy fARtsqRRxanAoPKJfi9k7gV OcTEAhMAXqCXpybId4OCDls 621bn9wccF2qEWlUJA3DXtf YWJsZSBhcmUgZXZhbHVhdGV sSUMhyjEiEJGannEXzU74nm 8ehTB8a2LhGQ5bc9GzuPB3I WNobmljYWwgdGVzdGluZyB3 OWVncMCqAc9flZFiGQC5LJW xyMghmwDFqU1oESLmKUb5XM WcLmUjXlflmnKQCKWjL9TjR CUkwjQxvnsqUIT0iZ4pl1p2 UPbrEn6wWTWmiclvx4kiwxB zkTUls4NjBDLtiyAtd0BiRR PfywVegAFuRBWzadPhas9tt nRsYOInQHViX5JibpczfVxf pfR7WIUdTLLmqUAbxMnsCRA xZRv8OUaftgZkg3FzAsAfom KfeRMebsKjRI3zEFKvxNSgj wMyMTX6GNRuCSXJPxExCPPs p8IkCS1zVKAvqIqdXAAvoL8 pi4IrLTAfs46yUJDmUQMBGF EgaGFzIGRldGVybWluZWQgd TibxRCrrIHnBRLhYMFlBL0b DHXarbUsrDNlm9YgfUXglcR cc5SoceIcWBGcTKS5AbWFnO WltFVwgRWxgoM5o0MkQZWtc kBjvEjzpTLinNBsfBJom3Ma fb1vIOCgc7ukjWrvQC9pfBP iZSByZWdhcmRlZCBhcyBpbn Jis2UbU1W3iS9cIQxuk1ZwH b8mNKOqq7NerbPhJwZDpDqy VIkxKw4wAEYwrwrxsMGcU1S ydGlmaWVkIHVuZGVyIHRoZS EYsWacgLEgrSQLCDNwbpC8s 5P3AHjdyBCfzvEpLS24GVQt ZA8bhVNvbRQtd4ZcSLo0GRX vX2cXBG07JJqxAVWplSNbaL mqbEQzJLHpKCDdsxIicy9pn OdjuDNee48htCW7rUW5MAAu zG0mL8SqDZocTx5nDGWsraw iyIGmxVfiRr4jfBGoiO== Gross assessment was [facility] performed at ([facility], code = 2777) Department of Pathology, [address] [place] [address], Technical component [facility] was performed at ([facility], code = 2778) Department of Pathology, [address] [place] [id number], Professional component [facility]. ke's was performed at ([facility], code = 2779) Department of Pathology, [address] [place] [address], [facility] CenterTissue [id number] 15:29:08 Test Item Value Reference Range Interpretation Comments Case Report (test code Surgical Pathology = 104) Report Case: [id number] Authorizing Provider: Logan Russo MD Collected: 06/18/2021 11:41 AM Ordering Location: [facility] Received: 06/19/2021 03:44 PM PERIOPERATIVE SERVICES Pathologist: Tom Paige MD Specimen: Mass, MITRAL VALVE MASS- for MICROBIOLOGY then pls send to Pathology DIAGNOSIS (test code = [id number] 3220) uZzEwMzNcZnRuYmpcdWMxIH tccnRmMVxlcGljOTYwMVxhb pMdAVGeqFKaC6XirnruUUrv HF4pNE0gyCmrmFHtkGBvGOK eNjWws6cch853hWLqr9afAD ACtsynmKj4vVhuD18vn2N0G aegY19aoEUyZNZ3BIDcPZDe bEHnQAWfVQG2AEDzuXBnB5j tPZKrVV7kumhqISyuNSslET JjqRL9FJRhaIXlM8NeNVBqQ QxtHXXsyll7WvLtWq8gqNMi eTcyMFxwYXJkXHBsYWluXGZ lYuVfQO8qQHJFJnZjIC8XYP JBTCBWQUxWRSwgREVCUklER G2WPeWrIO9GGCXBGBONBswu cGFyIEZJQlJJTiwgQUNVVEU hEO6PSENIRSQYC7RICNZAY6 GNH1WFKWYTBdEjX0OQZ7iOB PBWMUxDXm7njUDyTYOXFMFB TMroV9EYLR6OHUZRTuGUNoF DH4RJJ1UHIK4IC0IQNBZKKf MGSI7CKE4HHDMZZBTCFtPZL MYXXiJJZ2qOF7lpDTsdCKZz S07ZKwHNNCBYC24yT6oLWLI OIADMX8DRL1iGU0nOEUadW0 WUFYrBObMQMbYPAQMZAI7YL jPCEC8qJZTvkc19OHH8FvVe z9A0EQZ5JVZtYEZqw7xlUKC mbGFuZzEwMzNcZnRuYmpcdW ZxQKGuIvXxj6ouy370mXAlv 6khKZLhImV6uKJtJMJlwAWf O138MKQvKZtbx8gmx4OzQRN pxIKbb9B3ZRPBvfmpfJn5jW tkW69de3K4NyijB4cdGCLlH GFuW5OoAY9gFYFgXei3YIL7 BOP8WFGtFOJhY0RmMJ8fZVB naMTnCXr4t5vevPsnXUViQB D8i6psSQcqoiEgKB0rng6vw Nq3b4rcdmYiDWTkZZGfxMJB NUHcU2LqyNxbAl6dkBo4rXv rFdnxJHC9Znn6BV7jem03on q8fBibZIKmtpkfBwN8MPvmV AGxfiyoGLx9DWnlQGDdlBF0 SKYueDWvJ4AtDQUuCX7attz 0SPS0GEwnRTJiOcX3KXWrsG SnMZZsaIeoXXroq592QFT8D gBtMU2oC7Wal0N3eX0moUSa CVNceXHnUmUpUQMdqf8uoPX pLBepl2AqYZL9bpD4wTBfzY FpBVHtBmZ0CXfcXI5bix70R ZDhAOW0xr9cjDKczGzbbtLp pMEfNBssY9VeWDKyg852ADA iC7AhILQtc2B7quTdQhLjZP KjsTQ6etB0HDOdVB0billop 8azUWncEBllEUAgitH6bwE4 OMXqaLXjS2HzqS0kFMFdTJ1 ksbeol0ahOMF8OKyxIMKkQZ H4QiVvSVQrv0Gwaif0HgUcf 7KutSAtAVxfT41bj422CPCg tsQnU1udeGKgtmldgYQlfiy qTXsqoxA7PAWsPUkoxoqnZT WfGPrgI1khXsWfLOCmjCkiH Vbfj8StOIBpRAMvQiNnrQXx TOIaWgm0HVZcyAQkVBMiWoS mR8nyhpzsIhRZPPOwx1qdR1 rctWPYkZUhW4VyVKqumuPtD YgxLZknNxHnYUZuRM90FNV5 XDYuql56 CPT Code(s) (test code l2mgjJSlAKWkvOG0KiIfULJ = 3357) wj2vda0BqyRFjcXFwMPytrL FkqnPxwe03hOS1aU31TG9xF FIsSeC1SSGgznU0Fld1LMRa ZXYjhGIlE792a7whe3xdjpI qtTV7uHnpSCEjelkdVwV6OY yrBMShqyfgCNe7ZVzsBUBpv HM3USSniFLbJ2WjEZWyJG9l fyo6WSE8NEngTLRbDuV1XUN skQWhFHNuzKnrXMdku567OA R6ZoEpRGXmzwYaoEtfgB0nB yMhZDP6PPZdHUwjJEjpMAFF Y0biSGJ0 CLINICAL HISTORY (test o4bqfOImVWZjjZD6DzDyBGO code = 3356) gx3pva6VksYQmcRLoYBvlwV HogwYebb64lNA2fJ18WW6vS LSbTfP3WOUkywU9Mvp9HIGr HMSgtMUqU142x7sgo8lpauN jwEO6eQfwHTCglxcbXaE8NB exRMSdqfqmUEd5HLqsJWIob KG4HPNvpOSmH8UgHCBjFA9s lrd7RBZ1AGxlVJNvQzH0CTG sgKHhZFMjaBevIXfsh979VX K7KmNfAJKjaoRrtSyidB9zU gQyJLQFkqDyK8FmBHr7jMKu cGFyfQ== SPECIMEN SOURCE (test a0jetNWbDPZsfXL5LvBrKZF code = 3377) jb9nro0ZiaKQnzULfLYmgcT GwueGesb54mGS0cH41YG7mL RQvZzN3VOCijaM5Umo3PLMn NHSirFPnT439r1tud1blqjL joRI5eGnaLRQbvlpsAsF6WU miLQPhbnxiRUx2GWoaVEVxr ZZ1OYMxnNPhG0ObSGRdER7z vxu2HWC6JIsrDTKaSuF4DAH ayKOjTVXhfOqiPYamk882ML K1LkJiRXCrlzNhgNcnxZ9eQ nMyMCBNaXRyYWwgdmFsdmVc cGFyfQ== GROSS DESCRIPTION h5ywrQMeEMWgyPRvLjAlZVJ (test code = 3366) mPBCbh5dgUPIfaCRnWgSaYp NcZnRuYmpcdWMxXGRlZmYwe 6jrc061fNEbt5yjGKOyRaQ1 oOMmJQQykUHmR314TWUjDLw aa3lmi9CbYBXblINgo1T4AB VCzfuruUb6mNiyH93ar6M2H fxkB0ynPBMeTZDnZ7IkTE9v ZGUrCwp4MNK0IMW0BNGcMGP nY9GzLG7hCBGsnSPxHHp9v9 vkeZcyXOCxUPG5z8fgVNhis gZtBR5eod9vtBa2u9xzpwTp TAEsCJGkvELLDFVpZ6JliOe ePx1fcBo5eNhsAqcaAXT2Ew m9XG3lzk84iag9wTkzCIKly iunWyX3VOupUPGzrzlsRHw8 MFxtYXJnbDcyMFxtYXJncjc yMFxtYXJndDcyMFxtYXJnYj wqTLpeAAVkAZF2GIzmm166J EE9FCfey1cfp3lpxSZfIxb0 PNFeLoPlUflzTMshx5Cdf0w oALPmtv4uAVD6aYCrkPvil3 M3uGLqRVXooEJkjdIuFTVuG fT8SPjcLS9phd20HNFqHEZ6 pg2swXZqnWzalwFcrIFoSPw vE1QrWOMir111OAMrQ6DbTM Bwd4W3fdVfPdPtHWBmuZW0s rY8VKFnIMr0lYExwvT9nyJf fCLzW6fblM74CuGcsFNfN6K itR05QjVhlGAiX8MpkO24Cc WouCHzL5DanZ40QyQbeEStP QRckRWpCg1oiVHemQPae3Ol oCGgDYcxN26tm425CCSvtvY fF3hrfRHlfcbqbQVogglmYD uguvK0BONnWIBqAGqtPYEfQ GZzMjBcbGFuZzEwMzNcaGlj vPntYOazRtJhMUUbXSynB5c cZjBcZnMyMCBBLiAgUmVjZW n2MONyjW6nTg4vmXLlcZ5dj OFsHMvqJHI4hUIsMYHoBUZm YGCcRK20S6DngZ6zz9PzQJC or61mKN9mAPCjvJRlKMzwsf FsdmUgbWFzcyIgaXMgYSAxL tKgI80laU6qdMKiX7QsOVK8 IDAuMyBjbSBpbiBkaWFtZXR argN2ND0yuBeaofA1iNHmfG FcZUybdVOeHZtlQDW6Hv2uh IEkMTUinrA3t8SmZLneRGAa j3XolLRaHVBrYpmyGZJdgBS gJMHuadYejLoyhT4lOfDxIs MyNFxwbGFpblxmMVxmczIwX ErdymrmXEIqKPrzH5knFvHl WJOxoRyiWZhnp5ViRDNgDBT fNwWyRONrHTSna8egQJ90AU xwbGFpblxmMFxmczIwXGxhb uneEZUpCBzhB8xaFhWoBVKw zObxPXosl4SbVTJrEEJnWqH ccGFyfQ== MICROSCOPIC s2xeyWHrRONraOX7PoOoWPE DESCRIPTION (test code cg0cpg0QzfIXvgLGqOObvkQ = 3371) SxdcCwyu26nTN7hO29UQ5rN VUfFwZ9OYFsbxI8Zce9LPIj EYDenZTqO462y9fik8velhB jdKE4jSfgAXCuvwrfPrN8HQ ioJJVwflvbWGg9TTiwHGEff SY7FCVznAVeD2EpQJFhIV5n adw3HLI4TUoiXSSfMvV2DVD hrQMdXRGggJshNVjjy907FL F4ErNfECSluqRhrBwxpV2rM lRrGNOHDLGpj5OrACBoCTNt cn0= SPECIAL STUDIES (test t3smbMOfDPYjkMJ4JyWbTDQ code = 3373) ls4ojb9EznUWjhCAiZIbavQ BfeePzws21iZC8hS34XU0jN WLxSqA8PDUepgW3Tey4TRGc ZHCdoIXqQ158LCDtTAMzgAb jaak4nN37IQZrrH5crGYpLC ykjkGpHTpanwGndlPsRub9K TT2yCuzWHUufcapNjE2YVmk FKRszousKOv6KFgaKDTcaLE 7ZVXjmUWyN2NfMQLjDO2qof h1LLT9NRxbTZJsNoT8KWCfk XWnPYBflQspFAgjz605CFZ5 VdUvEGUyylDfzHbjkO6hLwQ cZnMyMlxjZjEgVGhlIGludG ZdsABcpEY4xC8rUF4xCDIjq VZuY2OtVWHnmcMlySNfVJN0 vWAuxVMkZK3uSFizaFAqe3w qx7EwP2hheEdfcJX1DS9gXG IsIARaWRcir4EhzH2eGfefL NMhP2QvGKTQO3PHMZVaCKES Uo4ZOmSYKvLtKyOEAi0pTXu NUywgQUZCXHBhclxwYXJkXG AwYRAPu697um0gPQIgmDKgt hMCjALgeR1mZZrpJXfwIKao jLYcXFrci3ocARFte7z5zHT sBCRedjBaj9ttXUnumqIiBD OmdCIesZXrLDDqt28hULiwd LlnvPcjRIRcm6MfcLbiq1Jo EnTuPLkdj6AwN85poNJhxRQ diBwvPKXwvmLsVYVgs43wm0 vaMLDiFaM0mJBqrRZ3iRKih WUfz0JgjZlwOXOfs8diLQZv vu8vkybuwSEfa5OpjF3meps hHXxtgZNituQpAJQan3e8mS ZfKXShFBJeMGvpxFh8JLRbe 228xk2xbnW3aPPvKSZ1AHbe YWJsZSBhcmUgZXZhbHVhdGV oQFLjyhAlEHOhukNJrQ01gm 0hmTU8l8EqSG2bm2CoeDJ3T WNobmljYWwgdGVzdGluZyB3 GBZlqZJrDb7gcDKdYNM1OPX gjRykkkRCvU1sVGUoNSz1FY IkJlRjUqytioJWBYOyO6CvG WGacaSztookDVK0jK9uc5r8 FZvySb2fATDdtoolq7hklzQ wfFOad7VsQBRpqkCkh7RuWT QtjyYsiHAvTRLzphYauw4xj yCdTZZfXDMoK3ZadzsupVtc ujY4EVOlMZBbxRPcrLhuYRV sUMc6EAdpxwNzl7BcAfNrqs RtuFXabnTkGV7aMFYzjILov cWfMHJ3KNOhPAKGUfEtCFYp p1MrOK7hKIMstVdsOLWmmQ5 kv8HxWBFlq99gSWXoIIIWLG EgaGFzIGRldGVybWluZWQgd PdqdZTblUNxDEXwWLZuSG5b BXRkpkKmrCApu6DayGZvsnS fq9LhppEtAZLzRFK2EjQFcO BdwGLcxHMuplC5p5KwVRJcj nBjqKhqxNKftXQahREkc8Ko eo6pNSBwn9omdZhvXC3msTE iZSByZWdhcmRlZCBhcyBpbn Cmj4RaN3S1kF0xHJbln3TmT k3pEYNwn2HbwkFhDaXKeCol LXgtVr9tUCGlessfdFGhE4T ydGlmaWVkIHVuZGVyIHRoZS SCvRxkpZXorPVVJQLwzdO2k 2U8BHrueJOvgyMwEH11FMKl HU1ysSTtfSJtd7HjZFs5GIF vE6rTHZ24IEmmUBYavHDbkH ldkBYrPSQzSUGrknQoyl2fx JhyyYXnt51uyQJ1mFN6WWYf wD8lO9PwVZqsAu0jLCDczok icKCeuUvbLe9swCGgmL== Gross assessment was [facility] performed at ([facility], code = 2777) Department of Pathology, [address] [place] [address], Technical component [facility] was performed at ([facility], code = 2778) Department of Pathology, [address] [place] [id number], Professional component [facility] was performed at ([facility], code = 2779) Department of Pathology, [address] [place] [address], [facility] [id number] 15:29:08 Test Item Value Reference Range Interpretation Comments Case Report (test code Surgical Pathology = 104) Report Case: [id number] Authorizing Provider: Logan Russo MD Collected: 06/18/2021 11:41 AM Ordering Location: [facility] Received: 06/19/2021 03:44 PM PERIOPERATIVE SERVICES Pathologist: Tom Paige MD Specimen: Mass, MITRAL VALVE MASS- for MICROBIOLOGY then pls send to Pathology DIAGNOSIS (test code = [id number] 3220) uZzEwMzNcZnRuYmpcdWMxIH tccnRmMVxlcGljOTYwMVxhb kXnUIPfoJQsT0TngodjXYgz RQ0cVK8azBqkgNFfrTMlEZR hFyVub0ief821hTFom1hjRQ LFtapodKc7oCfuQ29mj1Q7Q rdqE83tvLNfVXH6GXNfSJPx rZArILTfTZZ2HWFkeVGvG3u lXHLsKH0vsdqoDHnzMBotDI UtvUL7URDegDRwV7OoRQQoB YumSXCqait9LxQrHs8atJFq eTcyMFxwYXJkXHBsYWluXGZ fRyVrKR3qWITOFyKsIT5XAC JBTCBWQUxWRSwgREVCUklER Q8ZGgPcBD4XPBLMDSADPheu cGFyIEZJQlJJTiwgQUNVVEU nRL2GYROFBDPUG3PEVPGED3 WOK9MYHEEZQkToB0ZCX1bPS UGYCBaBOx3dbNOyHIRFVRUV SWtpP9RYNR9GXDYIFeQIHhF QP9TJA2ADYV7ZS7EGXSZRRa NWBJ9PWK0QAUHFYOJXKfBLU PJVEmHGO2hEH5bhLPhbVGGz Q18ADxYVAQMGV45iE5zLVSA HBKLVF6MNV5iQI9mYDIbnR1 DCBAnLRsZCWqFLTFWYPC8BB oTHOL6sGKMipf41LZL7QzRx m0Q3OZQ3VPMbUNEbq4asKRO mbGFuZzEwMzNcZnRuYmpcdW PvANWeCaUav0tap450eKEpn 4mhMCLaUoI9tKGxDEEzkRBl N813CPFwKWqlq3pvb7NsIII dlIXhd7D3OICBjdygiCf2vR znP86cx4L8DzbqE1ouPBYvW NKuK9EtPT9oFJDhTna1EXV5 DXK4SVEeJDPiY3CpWR5pKWC bgDVsOFe1m4gfxJdgYIUoOF T0v8bqFGewlkRxKD8bar7tl Kr8f1fyrqGqEXGgESOztUOI ZKGuJ4BikJxfZi8myWa0zQc lTwtcEPL3Gmk7YX0aav12oh e2gHkcSMWqsncuVfQ4KAjkO BRqrdtwVCv7BJsfQGLfqDI8 BGRqvVXqS0MeLAMfAM2pucm 6TIZ1BTxjTUTgEaD2IYEzyG IuLFWybSzzHMeli004PXK6A fYqRP5yX9Wki9L6yV4qsGSk VVMdpZNhIwTrVISphg8sjQB rOImnp6GhILV0pbW5hNGzxC QkZXIeBvI0JRqeGJ6lzb85X RQaYUQ9do2klUXwxIkdhaHb jSLsOUsbY1OiFWNqd412LNP uP6RbCNLvw1C6oqMbUzZtLL DclIB0vyR1XBObRS3xcglki 6dlAEidLLrcWAAfmoB7bkJ6 IMPekWNrF3HvxY3uURYtJX1 hdrfit6hmDTB6NOyaQHWrBH X6TiUeQABes1Cufxx3KfZfd 6GhrEXpSTojN02rb268KAPv jsOtY9mnsTGdjrueoRWhdom aTJyaipA9KWJmBByciteeAU AdSBgcN7soMzRmLDIhdYclJ Iyml0OeLEPvZLHmWjMjeANx UAAuFek0QOFmuUWoPODjSvR uJ1glifybEbZPXHQll9jcW7 imdWWJtAYdY5UnFEcyjuWrT BqsGVtgRhBaWRJgKV84EKO1 IYMksf90 CPT Code(s) (test code o5phaUVgDOYxbCR5BxEqMNO = 3357) ju5nas5EzfTLoeVJeRTgaxK VrilJphf41lLI6pB87DR1mO BHfMzW1HBFpheF7Ryz6XOBw BRBfhOJiZ903o3ahi9horrA xcUO1eGodPSCfysdnWcZ7VU hoKZXcqhvjIAy5QJfbQGHiz TR3UBPboSKtZ6FlLEBkDI4g vyb3QWB7EEbjWDNpMkW8YLW pfGBeGBHweYzuSFmgf573NT X1RtDgRLFcaiVcfJctpW3jD kLxXEI8FHJbUVhvWMclXROQ Y4hnWGK4 CLINICAL HISTORY (test a6ypcPShGIEqeCZ2RcWmAMS code = 3356) do2rnm4HwwGKumGTfKEfssU CwucJbxl92vRG7sN39VX7sE AJcMbD1DQAxabI6Atx8YAOc PYVjfDCsX578n3gsf5yzmgK rcST1qBppTEQjrttiPrY0SU hgLNFatvquOAl7ECsdSGOna VR6YNRkyWJtU3KsYWDkVU8u dhh2FIT2MZavOKVyXhW4XKX lcYVpGZQnzSnpEWqed380JW W0PeBhYOFjhaJorWxdqA0sI pFcUBGTngEuN4KfNQk0qDOe cGFyfQ== SPECIMEN SOURCE (test f5duyYRgTHRatOY3IvNyMYF code = 3377) lk8csa3DrmXQagECfPWvsmE YqhsFjfl00sDM2iQ86MR9hV XQuWgH4CXXvgfN5Dvs6TLRm YABaoCIcC671i4qzn2qscpC daFL6xSckQXGjcaakKoR2WA ymBTNskhhmTDh2CTskACObv BM9MCKuoXXxB8ViTLAwXV5j zcf2GEA3EPmqIWHbKrP7SOX inWPhQRTuqXubIYvzr082UM N6HkZyYAJmubZidFubrI5cG nMyMCBNaXRyYWwgdmFsdmVc cGFyfQ== GROSS DESCRIPTION z9unpDHiRRGvyXQvJzShDXS (test code = 3366) jJUGxb7koUQOwwWXcVbMcKy NcZnRuYmpcdWMxXGRlZmYwe 1rro793sDPhl8lgTPKzEyI4 xOVvZWImrRSaM590EVYzAPj ds5ipf8FpGMIvqFKop0I5NF BUmlpsvHp3gMtgU29dz3P0S ezkU5mdCTAfNKYiU1QpFY1b UFUrZti7LYD1NTD8AQKvXXQ iI3LyPJ8pWYShvCHhQOf8x2 nbfArvDOMhXEK3g4zfNIspz uMeFO2iai8qbQm8s5eqwsWl GMOhVBTuoFTAGGMoJ1SwjVk qHq5qrZd5nZnpRthmJYY5Je m4ZB0evd31ajc2rWjvITSvn ppdWjL5MIvvRNGirqukQTj5 MFxtYXJnbDcyMFxtYXJncjc yMFxtYXJndDcyMFxtYXJnYj ezPOwyPHMzLID5RCpbd201B DG0AGvle5bri7cwsYYpLlr4 GJKmFpKgFuzoKXxmc3Ibt1u fLCRiim7lCPO1qFBsjVkup1 D4zLWeZEKfgSKavxBsPLOfZ wH4GHkoGZ5dvv95WNHiZXG5 ue7muGZetLtgrsWstUIkPCa jI4JvLAMxg321ISXaI7XvVZ Uco0R2rjAvLwMdAFKrrYF8x cA1LHNbTZe2qKSrsaJ0viJe nQPsB3zuuM10JiYhqWUpX0U lhO47UaHuaFMgZ6CfvD23Sv ZbnRWzL4WwxV59UoZofYKtE QZsuFMxNc7gkNEeoAVmh5Ss jNTqPLsvB67wi380HYIvgeX pA2xweSQkfhhkvBAzurlgBB kvaaO6OERxMFSaPXnhZMHtI GZzMjBcbGFuZzEwMzNcaGlj jCyjGBslWbNmCWZjSXrfP1q cZjBcZnMyMCBBLiAgUmVjZW t6NVXjhA6bBv6naQEafJ0qb PQaTFpnGAG5wAHuIVBbODWy RHTnQR29I3JqbS1jm7ZaBRQ rg14lBV5nDOQqfGIdSUdfci FsdmUgbWFzcyIgaXMgYSAxL sKfD02ssU1xtRHkO3LhODN3 IDAuMyBjbSBpbiBkaWFtZXR kwdH7ML7bnRoqwrB9fVKcmI QzIIeknMZoZTxhKXB1Ch7uq XCtCRPztxB4c3TtTXzfSLWi k5GbmMDvVIRfRjabXFCpyWO oDDUjayZasJzkgR1aWkFjLi MyNFxwbGFpblxmMVxmczIwX TtgwzduNBIyPWetG9snSkUr JYGeuAatFZbim7ImBFJtXHN qLqLiAYYdRSVip4xpBX82TL xwbGFpblxmMFxmczIwXGxhb wafFXHgOMewF7xoMqWjWLSi bQfjGHyjp6FfHZIbQRMiIdU ccGFyfQ== MICROSCOPIC q2exfPTwKWPswNV0PkHsRWO DESCRIPTION (test code sp6tii5QeoAOnoNBoRDrylC = 3371) QaygBaof81rQU7kN27BC4aZ KLjIuY5EQFakdK2Ywr9PWBg WSZlyRMlH606a2eod4rymtU ccOQ8dXuxRRMcptftJoV1IE vzUZExzecuZJu2ZJtmAQRte NT7DEQtaRUzP2PiZBDwAT5e wta4FPN1BVvyOMXnCfK7GER wuCUmKZOckXxcBGdcd775DR S1WoBeUMLsmoAmaNwtrH7dZ kQzMETKXBYvo3EaTGWnAJVj cn0= SPECIAL STUDIES (test b0rliMPdJJWtdAI2XwMpSSW code = 3377) kv0rmv4RlcPAykMOeJSkjfP JivpVvvq35nGG0wT62PE6cP DYmHnO2HUOsbwS4Lrw4TMCu SUQhiZOxM606DTFnDPGhbNu bvdp4hR44BFDygN4smNEpKO qyrnAuHAycjpFtomYkNko5H GD3bMafLYDpbvxtWjY3KOfn HYIznbwoEBz8UPqnCBZgzZZ 5DMIkkUNeD4DuBERwSB1opg y5AQJ5ROhpJIMaXrG8DKCwi JZdYSByoWeiRLwch860XLT5 CsQmHAMkruUdnIknlP5eKtU cZnMyMlxjZjEgVGhlIGludG ZzgBNomAA0xS1qFB5eYCHwh CMpP0RlMJRvfcEcpNVcIGA8 sLIklHYkHY1kHPbmdLUou7k cz6BfX8hppQgqwXC5TJ6vEW LlTCSgIKvsx1ZupK3hOlvxF UYlM9TfMUHTA0HLAZMzRDUD Cn0YYxOTZuEnRtLSGx0cLRe NUywgQUZCXHBhclxwYXJkXG RyPVWOg589za1eGGHllPKzj uCUkSOywG5iCXdrSCsmYHhv iFXcMEsii5daKRUjs1b4sLG gFATiixFwj0ukDRdlncDfDK YihJGkyTZqGGOcc12pCYycn HkomBljHBXcx1TtbPacz9Co SxNwDGzgi3PvI14skRMqzQP unEbmNERjxpJeAJSep24el5 hdTSMtTjT8rMGjaFB4jOZni NEjt4XthOylLYUqj5itTSGj ic6vsfigjILfs9HnvV3qtun fYAlwrGKoahAgWUUrt3k1jR KeQTCaBLObWBelcKz4UPFzu 043qb4uuwN4mKAjQZG9VPjt YWJsZSBhcmUgZXZhbHVhdGV oWSIwfbQbFWVxcwLUxW89ni 9eeXO8i2BeFT2la8XljSH0V WNobmljYWwgdGVzdGluZyB3 EGMouOLaQv7yiWEeZHP0HQK wkThngdFBqE8eXSQoXBo2BR SaGhJqIxjtpvHYEEPwS4VjI FYbkgJkqdxwOJU0cS2hm4h9 LTpuZq0lRBUpnttdu3rnxzZ ojSDyv5TrMDYqaxJdk3ZoLG UwopOmoUTbGLZainJosj0nk bMjMZGxHPJdF9UgkedtmXrl gcC3VPDtSKNcvKNlnHqsMXC tPWy4ITgnhwDlr8GxEzNjft KqjXUnzfWrIY8eNZLqnIDnr oRfSJH5LKOxQXLUAuUhPVUr q2CcYQ4gFOBprLoxOEMcjS8 kl7RlMFWhu33lZYQnVICUOG EgaGFzIGRldGVybWluZWQgd OsfiLFpfEMdRCMqEDXmWD8l VXHcgsNaqXFxu1WcyJPhtfM ia9LxxuKtWXYjVMX7OzHMtD YchVNtaFHaagK7r4JzWLKbd mDulAggrWQrfPXcyXUjo1Bd dz6dLGRdw2btgKfmZL2edHP iZSByZWdhcmRlZCBhcyBpbn Eyc2ShR8K1fI7yONgzr9QdJ t4lUSHml3XrlaJdGtFTwDnw BIygPg0wYQHufnrneVXdQ0X ydGlmaWVkIHVuZGVyIHRoZS IDaMtzjGHxrBIMHGWrqwF5t 4Q3ZNjpcRQtbiEjTS97CCGg KX8xbNOmkUOim7CnFHw2RJI rH8eJAG96JTloQMKttICbmR tdbVThRKGwIHQuukVvqr8at MjehZDdc93rhAM6uUJ4ZBKo lP6cN3NaCPxzRp9lZELfyrl rlEQjlSlmEy7ldCBtiI== Gross assessment was [facility] performed at ([facility], code = 2777) Department of Pathology, [address] [place] [address], Technical component [facility] was performed at ([facility], code = 2778) Department of Pathology, [address] [place], [place] [id number], Professional component [facility] was performed at ([facility], code = 2779) Department of Pathology, [address] [place] [address], [facility] [id number] 15:29:08 Test Item Value Reference Range Interpretation Comments Case Report (test code Surgical Pathology = 104) Report Case: [id number] Authorizing Provider: Logan Russo MD Collected: 06/18/2021 11:41 AM Ordering Location: [facility] Received: 06/19/2021 03:44 PM PERIOPERATIVE SERVICES Pathologist: Tom Paige MD Specimen: Mass, MITRAL VALVE MASS- for MICROBIOLOGY then pls send to Pathology DIAGNOSIS (test code = [id number] 3220) uZzEwMzNcZnRuYmpcdWMxIH tccnRmMVxlcGljOTYwMVxhb yBqEBTgmAInX1DwiksnDXgz BO2zLC3ktKtgzGHbtFKnWMO qOwDls9pja336qVErm7ehKQ KVydusgGf7zTpzX68ew6R4S lbmX52qjWCgUPL5VCFpMFUk zZVtBVNtFZO2SIVcgGUdQ8d aAGYvBG7qsdqfGPnjXTxhLO SpaOD9NZKrvAPmD9NhYQGrP SklYQXrnlb1VeHeHi2njYKa eTcyMFxwYXJkXHBsYWluXGZ dCsMnJN7yMJKLIeByZS0XRH JBTCBWQUxWRSwgREVCUklER C3WDjBiOA2BZQQDPHOBZvuc cGFyIEZJQlJJTiwgQUNVVEU lRO0SPWMDBKPRJ8LVOYULT3 XPD1SJZLIPJbIjS9SRD2hAB ZSHAWlMWf4uuTZwHVQLVJOL PRteI7NBJT3XDCWKSsXGGsG OU9LRQ1ENTT1DL8EELJEYSd CSEH3WFV8WLRAISYEEFgGDX JRJOlQNG5wUH7ptAGlaOKSf Z94WBeYYMDYQW80tN8mCJRJ HIKUWO3JPH1iVG8eDTSqeH7 AGRCwKAvDHLhYGXIWMHC6WK xTMXZ3hMFEaap79DQN2LzNg u2H4FGR3TZNaOHHob6grUUV mbGFuZzEwMzNcZnRuYmpcdW MkFFBlSoKgp8oot042fSOue 1geLYBrRxM4zCYbKFHdyEZj C482CNCoCDpyu2xmv0MpWFD rvSSir5X3KTNXofoldIn6jN ocY01pw1Y3ObjlJ2grTEHaS CIwF8VmUN0zJEKtIjb4OGP7 UKZ1KKPzDVGqB9EzWY7vDIV sgDEuAAm7e4suhVcuFQCfLP W2v2phJJgyfkRmRK0vco9uf Eu5e8veldScTIStPDCgwCDW DUPaO3RisCsgMi2duMc1aWg iAeevFPN9Ybe0ZD1nop29vq x7cUdvVONgmbnsNnB9DPieR OLdqqbjCIj4DNeyMMVhsSW6 GNXerMWtW3UtNLJpLE7dqwo 7GZJ3LZtcJLPuZwD1YXJskE ZuBJTlvNgkYLfxy221GCF3B oEwEY7fQ7Jgv9K3iZ0znMCz EADdfJCxQjCcBVNaia8udPY hQFyzd8RsCPQ8ezQ3cAMyoO QtJOOqQkX0WYnxOV5zkk04A NFlHZA4fn1irZEjcRoimzRs mGGgADxuU1IkFCBep432OEV tO3TgEPDxz7B1toZzSvRnCM QldUT6tqM6DYGlRT3qeehzy 8uePJsyABuhWWAbiiU8ogL8 EFFqtLDgS2YyyU6jYCNdVY2 oesrqi4mjULY6GNamLCRwMD R3LcHdKCUqv3Izfbs0CbVyz 7JwnMMrKLssY85zq672RTHm crWiS8jzfDPecghleJDyaea rHIymmyP9YFKmUGtqpuxlVC NhPQwlT6iwCtOgRBMvsXdpP Jmeg5EnQIDaMVAtGjEsxYHm GWMtDyg7SWZbjWXiQBYvQpU iR0uihuecQiAQNJBba9qgO4 krwCKHlECsW9TrLVxivhZaC NnlMFttLgLxOUVdFW72WSP3 KOOsnm54 CPT Code(s) (test code w8guaWGyUYXabIC7BdXeEII = 3357) qv5ofc0YzsEGvqNZsLHvdeB MclvUbkx83mLR1jL10MQ2yW LMoGwQ4YOZodoP3Vzz2WRVc YTHykFWvB408r6olq0rebrL geKF6qQgoCKUideukSnD2BT ucJIIbmwbfEUc3ZNnhCHTbw MZ5UVOifCJrZ6KzYVEeIE7u xhl0QMZ6DHzuRRTbIcG2IYV tjOTmZLSgmOpoUJtpm915OW E3IkCzXFSsobUuzHexfI9mU dHmAVR8TYJlBEaqLXxiEOVZ Q9wyHXE4 CLINICAL HISTORY (test p5qmoGSdIDKtyKC1VaGsLSJ code = 3356) et9wpn1WbyLYddOGvPUyryX TlgrIzsj03yRV7vA68HP9xW KVlJbB8CSMltuY5Wka3JCVv WNSirQElN196m9iwk3msyyZ kjJK4zKyzVZVfyklmYpC7QC inXJAuezasFBp1ESjkTDKyy VV5YNMhnYOqB6JeQVHoQG3w rgw5WVL2XMotGTAvXmT9GBC foVBzQINrkEtiXXtqn073KX R8SdUqQODaznCcuDpssN9iE wCqMLLOizSeT4SjAQp2mPBn cGFyfQ== SPECIMEN SOURCE (test e2sikDPqYXXiwIQ9LpXrIST code = 3377) ob2smf7VdtAWbvWZmPHsllP UmadTdgt70oNC5xP48AA3gY VFqKfT2ITXwavG7Zaa1LGYu WBOcpPPaA690x1rzs4hbjsF jhRZ6gLesEGVdvgbiWdQ4AQ aeCXPoqmpiOOc9QEynMDGqp KV0SXSmlHGdP0TbEZYcZW6k srx7XLP7FMimEBQpDoK4JQQ rkNTfFGKsdGlvMRbxj439AQ L4KiCePAHeizZevSlhxZ6xG nMyMCBNaXRyYWwgdmFsdmVc cGFyfQ== GROSS DESCRIPTION s2ukrJYlMQZhsKDxLoPqFER (test code = 3366) hXEAuc4opMVGjdWPtRpJgUc NcZnRuYmpcdWMxXGRlZmYwe 4cve127xXRsg1efINWiNpX9 iSLuPQQihVKnP224HMAmZPn gg1oik0WvBJWtjBYik0N1IB UFpgblpXh1jMmzU44cl8T7S zhjE4npJPCgOYFqD6DxRI0m KAQcWyl3ZSD4SKY1OHRbPIO sQ8DkOT2vUTQqbPVtLFf1l8 vdwPuhQJQxIHQ1d6kmQPzqe hOcJZ7jtc0umXu9t1mucxXb AVOwELMmjUYDVQHcN7SceBt aEa5rhRm7pFcdEqpyMAE0Bb u8BC5jdt56vyf1lDwaTSYes kpqKtB4QOccGVCdeqtvSQo4 MFxtYXJnbDcyMFxtYXJncjc yMFxtYXJndDcyMFxtYXJnYj zxSOvtOUNhPMJ4FXadf316W AO4KIcos2sgn1cusWJcFco8 ULUcSxFpBlcxEGrtm2Szq4w uNWSbqp7uPEZ8rZSfbWlyf9 Y8gPHjAGVgpXAxcgRrMXGzV nI6PZmoCU7lxw78TKZwOCI1 mo1glWVyrPqbebWmyXVnBIj yK6KgIIJks153UJOcU8FnGL Iyw1R4moPgBqKjUGRbnWK0v bG5PSMwOOz8cVPmgsG1ffIl mALpZ9ykvQ59IfYwuYGvG2M prI26LsPyyLOeJ4IciB64Ga GunISyO8WngZ13SzIynDBqT ABupYEmMm2euNDjiNJjy3Sr ePQkNLcnM72ns925PVDiagQ oN7adiUDbxyignCMtrgmqPM bqjjF7HHGzTWVzMUbvNXHbD GZzMjBcbGFuZzEwMzNcaGlj zBlqOAaiLlOsJAIlMSxiE8z cZjBcZnMyMCBBLiAgUmVjZW y8DBOocA2cNb5joYShiQ4qc XNaZMabQLL2jPGmOCRgNESc SLHlQF22M6FijO4dt7EsXYN uv86mXI9rNIRsmKNeCEstmr FsdmUgbWFzcyIgaXMgYSAxL fHcR11vcF1qcCBuO1DkIOA9 IDAuMyBjbSBpbiBkaWFtZXR zegF0JY7boUrfwdW6bQUdcD DhOAzeeDWwVZlpNGR5Fr1tg GAcOTFmcbC5h0JrUNqaYZDn v4OrxSJrESZbFajyGMStcZD oNVPvpaKrqShwoM3jUoMvKg MyNFxwbGFpblxmMVxmczIwX AgzkxfhRQMsZIbuZ8qyWoUt NQJezQcpLUysa8PvDGGkYJR hMkRnKRTqCVTgv8jhQU93UQ xwbGFpblxmMFxmczIwXGxhb pynHJIsDQdgH6laEdPaTKWa dHyoKZrap4UkHQFgIQYoXeH ccGFyfQ== MICROSCOPIC l5ljkUBsVAPfoQB7VtMfTKF DESCRIPTION (test code oa0sqr8GncOZtnEZvREfzbH = 3371) TxhpVnte92wDG2gE03MG4pE XTzZdO1YICtwbP3Ttm1GZVe LCAorNCwI629r0yvr3rghyE ayVF5cBfzTVEbwrfxDyA9ZI fdRFMcjjwuUTd2GSrzVKUty KV7IKAoyFXtQ3VpCEXaIG9b tem5JOH6RKosMDXqXtB7JHE vwIWyWOTiyKklBXszp392CO G5YjAzJUUdisYroHgkoK2jD kEhXUDSLWHkz0CdXOZuLBYa cn0= SPECIAL STUDIES (test l7ycqDYyIYPjjCL0GhPvJSF code = 3376) xw2bcs5UbzLNwaGIkXLjwiA JzolSoyc13mVY0kE50YZ2pV NCdIyE9ZKBubwW7Hdj0DLKq QGVqaUKyY834QGAqYBUffMv kqkt6yP56PARekP1heZPyVE mqdtGeGQdfrsLnejQuRde0Z EJ0mZlsBOVzwbyvEqE2UXwv OYZtolncRAk5CFxeGKMbjQH 2SQZjeKMyX3WnFFAiNV3uds u7KBL7UOvfNRFlOfM8WXZxr ZEzLUCyaSgrVViob227WJI3 VjZzNUDmcbQviQcqrP8pXqT cZnMyMlxjZjEgVGhlIGludG XanDXbdQT6kT1vHF9vTYZsc XVcN5IbBSJzfnVdfSViTZH7 gHHeaJDfSY7jBTupcVDrb1g kf1NfX1gqzYazqQI3VY6oGV RuIURgTBymp8GldF3fIhlhJ PHnZ1SlUDNZS9HUARLjYYEA Vj2UNnQBGeEyNmCACp7tLHh NUywgQUZCXHBhclxwYXJkXG TkUHJEb619vh8yUSCebLDio qPXvNIxpI2iWBifQIdmXKlr dJQhZSjlw6qjPQLpu2l2sQI vQBJohmJxu8ofTAixogCvNO HfrKGsmZAmAUEpn63iFYoch OugjUotDXIee0VceOryc9El HwXyUAcaf3XhB92sdQOokTL inRgmQIJlreKeZGGei23dy8 cgCQQzBbF9mLBtsDM2tMAzl SXuc5RbyJzgARClv7kkRUDa bw9ogayseOAij3AnzS8igel gJHqxvKVjkmWtKMVqj1u1sH WrOYGkFSLiOMqumWi0QFMkl 322xt1opuK7rJOdVEH3KQza YWJsZSBhcmUgZXZhbHVhdGV oSEVnvzBfWMDdhfJOwZ03fh 8pgJZ3v9IcLN7lj6QdcEQ4P WNobmljYWwgdGVzdGluZyB3 XXErsFNtCm0dtLFpCRT6APK niLqsdmDKmT9tXAKzOSe3EN MfXwVaJazfpsFCJJCpH1KpA FKmssAeyzatAAI3eG6xi3s5 UKrtPx9uDYGszreoq5youkG qwYEdd5ScHMWpvvTza0LqSW OkarErrRChVSHkwpNuei0yd nZzXWBqFMOvP1RtsmxfgJal mbD8RMKrPJAtoMDfiFvsXOG gTKe2WHscsxDgg6JeCtFzvq UdkWTopcEfJM9fKFSimACai mPpSBR5RFQwUEFJTeEuQTUg n7YxFG7fQCJxtMfrDQVfuR1 ad3IoPGHfw99vCVEkKLFVEJ EgaGFzIGRldGVybWluZWQgd GeohWNheDGvTZJgMRNmZB8a UCEwxdVlcMZul5KhtSKcoxI jd0WspbVnCUKtOSJ3BuFQoR XjnWPchBYxrzJ8o8QtCAVhc pKpzXdnlCCumTJnbHLhg5Ps dm9hKFDow4fueMiiIL8nySH iZSByZWdhcmRlZCBhcyBpbn Qyp2YgJ4F2pG4pRAniu8EbN q2wKXMxq4OjzeEwGfQYoCzg QGvzZv9gUGDgkvbcpOTuS8Y ydGlmaWVkIHVuZGVyIHRoZS GYbSeqyMVjmDTXVFNdyzS1h 2W1OZefsVEkbhNjAS34IODu KJ9zoHWcpGEcp6DtCEl5AAW bR6mYAU81LLeeSOXczRAvdA driSTiAMQiTCNribStgp3mh RazlDUds72izDF1yMM5AHDg sS9aG7PpMDrpKe4vKORoyql wvLTgwJigKx2glEEctQ== Gross assessment was [facility] performed at ([facility], code = 2777) Department of Pathology, [address] [place] [address], Technical component [facility] was performed at ([facility], code = 2778) Department of Pathology, [address] [place] [address], Professional component [facility] was performed at ([facility], code = 2779) Department of Pathology, [address] [place] [address], [facility] [id number] 15:29:08 Test Item Value Reference Range Interpretation Comments Case Report (test code Surgical Pathology = 104) Report Case: [id number] Authorizing Provider: Logan Russo MD Collected: 06/18/2021 11:41 AM Ordering Location: [facility] Received: 06/19/2021 03:44 PM PERIOPERATIVE SERVICES Pathologist: Tom Paige MD Specimen: Mass, MITRAL VALVE MASS- for MICROBIOLOGY then pls send to Pathology DIAGNOSIS (test code = [id number] 3220) uZzEwMzNcZnRuYmpcdWMxIH tccnRmMVxlcGljOTYwMVxhb kDkZSFivRYiD3BueuxcFIrl FG1sDQ0uwVyvsBJyvUEtYAJ aYvKzo7keg779gGIco2bnZJ HRjpszoRt9bUywI74uu6E0B pfvU75mhHCoWER4JLHtBWNh aUWqSHIhBRS6XFPeqKKqO2k vAHMaJO9yfnycDGxhMFboOW GeiTI0CWInxIRwB6HgGMRxD QjcRWLwhat2BgIxBl4ymFSz eTcyMFxwYXJkXHBsYWluXGZ oKoFbBA3uPOMCBdMdJP5ZHZ JBTCBWQUxWRSwgREVCUklER I1BCdUqCL8TCJZFJQRCHqyg cGFyIEZJQlJJTiwgQUNVVEU qLT9TBVZDKYFYX5KKGPIOP9 ETA1WZYOPBCuIdN2GGZ2tQF WVLTJdYNh9xzOVtIUCPKRYS SSazT5NXLX5DHLRIWgEDNmY QI4CKV7ZHEK0CL1DSTYPNTu HRUT6ELZ1FHHKADRLXCxSBX XQBLjCQM6gON7psUIieCMGs I13HSeUGJPJSN90kB9oZWKV FKHFFO9TIC6cZN2nQSPslC3 FIFSwATgUGHiQRODSLHE6FH yPYOF3fZCSzna40EOZ7NyJl x2U6SEQ3KCJaWKFop2nkOAO mbGFuZzEwMzNcZnRuYmpcdW BeWPUoTeTro7ihj717tQXie 8xrNEOhYkN7uXWyXQDsjGQv M214RFQoLCvxw0ypu6EaGKW ugUQds9L8SOHIurnawLq6jQ lzH20xz9S7DahtA4ejWPGuM JOoC5NkBZ8gGDVjYzk1ZIB3 QNV4FIKyRORkN2YlAK9lHRM zmNGhOQd8r2xjxJneRHWeKV T1l2ytSOplfiQpAJ7nsq3jv Oa6f7otgqAmDUKrZBPfwXWE BTUlQ2DchKabIe1gpWw6kUl jWnbsDBY1Ejv8ZB5exv57zi w0xQbbSLKjbjxwZaH8MRajG ELoegnmCAd0YEsaTJLvsNX2 SGVykOOyT7BdBIIgBS7eujs 2RTG3NVkfMOGyStQ4KXZjkP BeTWEclXmeXMnxp703XTG4X uRqDK4jN4Wxz4M9wK0ahPPt XXKeyADqMeCmWXJqmy6rrBO pPMvin7NwUHN5wnY9iEZboM FiYPIfZeT5ANzzEZ5ozh46R XLeYAO3si3syUSxlZvvodSt jSFfJQswF9MsFYSiz407KPE qG3UrVEWpj6J8paCqXpVrUX XivBZ2vjJ4IUZuKV7bdxjtq 4wxYCwdVZzvHSJqpaH7opC0 ICTcaLVsG4TekT6oRGVkIQ9 yudwns0mbOGJ0IOdgACOrUM K2XjXrUKXqk3Iuzaf0HaFow 9LkvBUdANivV64vj462AWNl grKcD5xpzYToypxubMNakvm vSHgzjaO5WUYdSLfoluohAQ JbRMatK1agZlFcDDXvoMczG Wzyf3DuIYVfIBRxSxXwsMDz CJWdQuz8ZBOmeTBuTLJtTwK eF8vfpojkDbPNHTNqe8jnG3 blcCNYmDRdI5EtQPciwwWiS ZngAGssGsWqBISfAK77BWD2 YCWpnt52 CPT Code(s) (test code b7exvROvUVZibJW8RmCdLUK = 3357) pc7zav3ZdcSUavRFpTVjfaD HliuGsiw53oNX2hK58MT2cB LVlUgT2MFCsvmZ1Gxs2ANLr DNVccRHrE839s6til6cfoaV ioLL0vNizZRYnbxjuOuY5CR lqIRLdgaiaAIo3CXlyFSIai HR3FXPtoUTyH8AfHHLyYU2q jnn7ZHN0MNifQFVlEuS9YEM owMPzLQWujGqnFTkul995SU S3QxGuZTRtakPrsWuqkO8wM fAaYNX2WHUlZYfqCAkhLAGH H5ciTFC9 CLINICAL HISTORY (test q5xvrHKwWYNedVB2VsXkFPW code = 3356) ds3hsa4BidDRqpHMoOZmpdC NuruKaxy22bSE5uW60XW2bQ COzDzK6NJCywqG0Rmi6TALm QMPyiOWcA291k8pvf8mnirI fnZO2rFpwNMFysqhdUuI6EL uyLDUickihYUx3IXjjUOJgm YZ0VTRxnBRzW1CwKDBwUW6v qgy0BUQ2RTdhDMZeVdS4DIK zpFQdNAYgmJawEUjik055KO Z6XyTyABUlflDhaZxceC0cD jEtYIXDphZpM6TjZUn0eLIx cGFyfQ== SPECIMEN SOURCE (test i4lmzOHsWUSgiHQ7HyDjWNS code = 3377) pa0hdy1CynTQchJGxIEongT OmldKgyr83dFH7fG00IV9yT SOcKwK1KVZxzdN5Pjm4EFRt JYVttMXeS637b7rmq2ypkvM nmBW0sJpgOWEjqappOnL1NV ipVTEfqvqiYOp1XDlaCAOdf CD8TSBflJSrT4AtAEJcBL6g jhe3VHV5IAvbTEKlXhI0HTK bxRVuQMZtnDxlGSovl217BW I4GjSwMMQslsSreGrctV9tH nMyMCBNaXRyYWwgdmFsdmVc cGFyfQ== GROSS DESCRIPTION o1xegEMpTFBybNFoVhJdRVI (test code = 3366) pCFPph6zdFBHtkVEfPbIhVq NcZnRuYmpcdWMxXGRlZmYwe 8vxv863mCEgj7ufRZBrMdX1 mLQkZZYduWTnC084ZVXkGTu le7enb9DlWYBvlZOoy5V8GQ TVjxpkgKh9zWwgM92jb9J3B ntnI0fwXFJiPWJwW2ZaSL9q LIRaSaz3KLG9ZYG0HOKoHXT fU7HfST9kZXUzxQNqUUm1r4 arhJawNSPpQMP9g3fbEQlxc eGlGR9vnz7ihOa2p9gfslTe EJAoMHLdmLIXDMQbI5GoxKl oAm2crDq7uLkwUfncDRE4Mw x1VB3kvo30dki3hMtoGVWcd aopNdZ9FWjmSOZmfsyaSHa8 MFxtYXJnbDcyMFxtYXJncjc yMFxtYXJndDcyMFxtYXJnYj apOOgfVSMcGMJ6KAtll800R LR7ZHjwp5aln0ppeKDlKfi4 BVSvAjCdJiwkMMpww2Vut0z xVECbji7hLOA4fDVdzRjfl1 S4tQJmFDLwiROekjQoWJGgD qN2KTdkHT4hcv24SARaVNT4 lb3vlCAeeKyjvmCysCQeRKy aN7VzMSXvy243XFHaH4FpGB Exi2Y6cwKpKgPsGIMsaPZ9q hZ5LBPrWKj8yOGwrmP1hjIo eCBiD3mvmM55BdWoyXGhJ5G mgZ77YiJcfYCkL2NliK02Yz RrmYWbR9YapV90CsUwpGUqA SEvpCOsLl7cbEHtbQKwa1Cx oXJzWOpoO62mp519ZQZpvwT cV0qkkMHmbzxuyXBgavlxDO qsauB3ARLmXXNsWHxlKVWwH GZzMjBcbGFuZzEwMzNcaGlj uGwsEByzKmJfRBBtMEskE6x cZjBcZnMyMCBBLiAgUmVjZW l3EPWamE6hRk5miJMkzK9ls ZGqOPlcVMT8mROgJEMePZXo NWInIR02P4UkfD8ro2QuXUI in99lGT1gHENprAEjIErgap FsdmUgbWFzcyIgaXMgYSAxL iYwJ34xmD9fsESnM3ZiMBJ3 IDAuMyBjbSBpbiBkaWFtZXR xqxN2MG4mrUsgeeS3uGWkgG YgQCuasDHwQAxcWHC1Ud2ol MMrWZVbcdC2p7TrHQbnBHHd n4FtfEPnNGHeYrrjBIAptOV qQTHzumIieZqyvV9gKaBdSn MyNFxwbGFpblxmMVxmczIwX VpakhcbTPKeSKkjS9dpZoHp NGUlmQnzIPhgz2LzORLbDOQ rWsPuCXIzXPKfw2gzAI75AF xwbGFpblxmMFxmczIwXGxhb itsSRDvPJopE4liGgRaOFSf bIgiUWyni3YfNNYzEZOnHaG ccGFyfQ== MICROSCOPIC i3hqgNAiBQTvlWC7OzKlSSL DESCRIPTION (test code vg6vtx8OtaRWvwHAvKUjsgT = 3371) CnbjYxno59yRP1cS95CX9eB PXzIjZ4PPFqnyG9Lcz7VQZy YFJbjPDwP077v1nsi7ibmxN zuUH6vAowFVYissgzNlO0AX cyDNLtjcwcQSb0EJyrYXLsh HL4YISqoIKkD3SeLGPkCY5b iit2UOA7AOuvAYReKjJ7IST csUXhEBSjoLriGVozp905XU V5IvCdNJQlppBdyNzbyB4pM uOsJWFWOGVme4PwIWOhFJWo cn0= SPECIAL STUDIES (test h5udjFEgYUWckVH3FsDaBJL code = 3376) ty2qhl6VehLEceBEnQRgnbX RmacKxnp25hKN9zW13SL7qZ GXcPmX2KCVnavX7Dcm2TTIg KFHkqOTkM309EIJjZPCytGc hbat9hR79PVJawR1guRRyNJ nlieVhMTcqzaTpksZqHwx6R PQ7jKzsCQGgqmxwXuV4JKmz OJBhessbRDm3UBjsPHCmpQQ 3SKObjMLvC2FtDYEcDH8cxj c2IUY0FUhcQTUdEkA1WPShu VWeSNXizVhpJEhai838RZB1 ZaWsHLDctcAjaDhxnC7fUzM cZnMyMlxjZjEgVGhlIGludG PvwDOpfOH1rI4bEF1oOEYrz NHaY4SuSQZnauAqmVSqVUY3 zHXokZUpYI1iOWljpMYyh0g md4RwT2ekgKmixIV8TW3qPQ YdTZVcGGasi1VapW7cVvvjW HRaF2CvTRINJ7GGSJSkTYEB Du2KEuWZWeNqIqUHTk8zIRo NUywgQUZCXHBhclxwYXJkXG KdRLLIj835xb9dYNNmbXTlp kFNyCMzwL8lYBfpCVbnDUog nZArPXbxm5sbSFYzv9a3oFF bZTGapmUll4ygPHywrzNyCV BvmDYrjKMeKHYit38sLLywh EjrnNieUWOkk4BetGfgb3Hf MzJuNUsws8RlZ94svFCneYG rzRfpGYFwwiTeDOTbw83uq7 iuLFOuHhL0rEVxiUC5rNRhs ZMbf9AsuCaaPNUai8hsUHLa hv7sfelgtTGgb2SpaS3bqqr qDIqzwFXqezWiFNBji9g1wM UdDVRzRPRhAWksjKc2TIOyg 758td1exmM5vXPgMOK1RLrm YWJsZSBhcmUgZXZhbHVhdGV bLMFmdoVvEGIvbnVPvT48ok 9dlUQ5k8EeZE1qg8KtlEP8R WNobmljYWwgdGVzdGluZyB3 TFHtpQAxEi2tgLOaIDS7JKI adZeeleDFsK3iFLKxNBo6RP XlZlRxQrfnpaISYGUhZ5MeD MDlatOhashcKVW5iM6um5f7 VFrgDy7bMJIwgcdcz7zxtqU fdEXlj4OzOFYydtMye1EwMA UwhyXxfOMtUMHhccNsmv2au xNnGFSmXNJqZ2QxvypbkRtm tkG9SCQxDTKgvFXxgGoyMTP aKAc1RQpvxhLwf3YdKdSset DcbPJfjxSeJR5gNWUumQWsw tTtNFK1FKGnNGMNOmLqEOGe q9EaPK2bWMJyzWrxEZOrqS4 if2ZzMVDvd11sFKEqDSSQNY EgaGFzIGRldGVybWluZWQgd DboaDDrnGGbLKLuVZLvAM7t QBRdbxDpiKIuw5QfmURceyB ar7MvyaGwXFXeCCW0LdUEvB QxlCUvdRHlhzV2k4YdWOTgb rWojApjzPBexUZhxLUta8Ld ig3wJRPql6novZghSQ1thCP iZSByZWdhcmRlZCBhcyBpbn Thw5KdD6U6kU3qPYuzl2KtR e7kZUMfb4QanaToAlWBkLkc CUwiEg8hXFEdppysqRVyI3O ydGlmaWVkIHVuZGVyIHRoZS OFqVzdsFHysOARSZQfrcS7w 8B6WMlhtJKjikMnOI82EGYq OC6ieBYmaEOmk1TkSSp9FKP lF1eUTS89UFafGBRdvWMzlB yteADdEHJsOFWsmpMarh4yl SvitRLgm39enRD9jWE1CZQi rL0oO0FlHFpvGz2pCSSumxb ocIEovAbyFc6xwUFuvW== Gross assessment was [facility] performed at ([facility], code = 2777) Department of Pathology, [address] [place] [address], Technical component [facility] was performed at ([facility], code = 2778) Department of Pathology, [address] [place] [address], Professional component [facility] was performed at ([facility], code = 2779) Department of Pathology, [address] [place] [address], [facility] [id number] 15:29:08 Test Item Value Reference Range Interpretation Comments Case Report (test code Surgical Pathology = 104) Report Case: [id number] Authorizing Provider: Logan Russo MD Collected: 06/18/2021 11:41 AM Ordering Location: [facility] Received: 06/19/2021 03:44 PM PERIOPERATIVE SERVICES Pathologist: Tom Paige MD Specimen: Mass, MITRAL VALVE MASS- for MICROBIOLOGY then pls send to Pathology DIAGNOSIS (test code = [id number] 3220) uZzEwMzNcZnRuYmpcdWMxIH tccnRmMVxlcGljOTYwMVxhb vAyUBYtpYEfP4GcafjcKUlq FF7vTC9quSjooXFvbOWgSHU zLbUgl4ejl631gVTqm4kpMJ GSyootoXm2mBjhZ86ir2N0H dcuL28twKVhAVF8KUXnHKWd oQLdBAMmXIU5FSJzjEHiB2g lABVqSW9szsnkWOkwMDgyQI JriCH7EEVfbBTpH2CkFZHkS XdnLTNmyte1ShEcYe0nfTMa eTcyMFxwYXJkXHBsYWluXGZ qVzHfZR6cXOKWVdIsON9KBM JBTCBWQUxWRSwgREVCUklER L6QDwMqQW5EJNZUQRMSFyxc cGFyIEZJQlJJTiwgQUNVVEU rVH0PPUOJGNPMW4VHKXERV8 CVL9JSXWCMLlRvC8OCO8yUY EQACFsBVc0leBDgWPPTVWOI MKbiG6NADB5HZLFNNnHXAiL PP3UXM4GJXV2NZ2QIAADSWv NOOA5URB8AHUMRRDKADcJIN FRMDiZWV4bZG0nkTEeaIYZc V80MRhJBGAKOV21tA5dJAVT IKOJAI8HAQ5vUC7bPPBfgQ8 UFWSxCGwZROsLULGNVTW9AD fKMLR7kPMKfek08VDU0VfPy e1B2WQL2JEBpRKYhl4ldNBY mbGFuZzEwMzNcZnRuYmpcdW FsNYIpWmYgb8dcy704hWRue 1clCJOeGjQ3zUWaHUWriKYg R397IBGhOIypt4bqr8MfKRR seIZsj9N9WAVVwwtksLa9mD zxS27wr9W0JcutY2ktVPCtA RKcG8RsYO0wDLAeAvt3TPK6 MYB6MAFnJCQwT3KiGN1dBMV kyZIyPYy6j9xpbJxjQJAfXF C6l4juTMxzavSwCH4fwv3nr Aq4s2ygceXwWMEiVBEhjPKM GXWoS1InlMhjFf5pnUc2yEl vHzjhCVZ6Ucu3WP5snc30tu m7fSmiPGNrvempBdL9NPafG WMbxbinPNu9OMyqILTpaWB3 KFWgpEMeV5VsZNRnBE7uush 8ETE2BCeuPMHyGkF4MMVrfN PyMUCyiEgwHMfdv132ZRI1W oWnUD7sB0Zbt3O7iS3hfRZu EKFgrKDuAfUaJOHrmp8ycOY tHKomn9ZwOZY5lbA2sCYloB BuPELwSmG4UBiwMH2esk68U YVpWBH2tp2huWQynHdqbpIm bHUjIYdgO2MsICOdg297AXG fQ9JiFVOgp8J4piJrRqMrBC OdrLQ2tbM8EYYjFL2dacahq 7hwNXsyOPnePIZiowC8xlE9 UVTwgDFeF5YecY2xWPTuET5 wwtxjq9exNZV6MRoeDBSoDJ F5SfAvKNXxf6Ujlji7ZjRgj 0PunBNwFJrrG72nf148ZWGk faTcO0mmjKQuymyinINfkrv vURtyeqY3IEWuDCyapnvmTQ NmTPkwT4muQeUkGFUifOhlY Dmfz3IuNJTxTHBiIlMijHFb VDTaJes9DNUqaIIgMCPzYoI qU2bnhuelBjAGEOXkc7szP7 wixDLSmKWdT2QlCShmawCrT MkoCBioMaDoJWWbNR38SGG8 EDTnsc00 CPT Code(s) (test code j7bnfPGfTHXleVV4QuOrEBU = 3357) hi8qeh6MdeAScsNJgNAehaR MkuhNqgp96hNO6tA10KK3qG NTcJjK4DIEpneH5Sis9AHIl WJHwpVJnM917u5ytz6uitlD zhLC3kGlnDGAiuvzbRdZ9NZ wvGMMrehcdJPy3EBnjJINvd MF7NITjjPZaC2GrFOGvGA1i gnb4NPY4EKgdUPUrGrV4UDU sqMWiFZKdcVkmGOzij174AV U7EnVxTBIoilYdkBhapQ3lK oWfUSS6XQYeCPrpQCteJOBJ J4nlFMO5 CLINICAL HISTORY (test q5dkgGYlBHUrcNZ9AsSeHAE code = 3356) ps7ppj4IrcNLjuLEjUCbtkA OudzOiav61sRM5tC17NM6sC RInJiJ2ABBtebF0Xyf5ABUq SWWdnCRoX113b0bis1pdljH jdRQ3qHrlBPHxmdxpDaH5HV jlYAYjelttCAw2VAxtMKRby RT3HZYrhYEaN7GxGUByFU4a qqj0OXM8SVeoBHJuBnO0LSE dvMDnSSAkgCymFXssf903LD U1MqCyRACzhgEawLqhcH8sV aWoXELPmcCpC8MlFAc1eHPo cGFyfQ== SPECIMEN SOURCE (test e6zmtMPyAZInyTT3YmAwBHR code = 3377) tj9zae7HoxXDugQFmGLcouP ItbbOhtu43xJP0xH43ER5fS BBlXxH1HVUmbtD4Bkx3QQXl LRWcuDGlY536p3sch8fedcX rsBB3dQfuCSLuwnxrDmZ5CK atLVSloztgWOe4RIfiSGFjf LF4EMOdiDUwT3RuIETtMJ7x ivd9RWX7MFhjKKIpPbS9RBL dzRIhYGMbuWlnIGrmd585ZC U3GkMoDLDwnfEniClimT2mF nMyMCBNaXRyYWwgdmFsdmVc cGFyfQ== GROSS DESCRIPTION v4aunBXzCJEadRUbXqEzKSA (test code = 3366) hYMQce3loOFMsfXRuWfWsSs NcZnRuYmpcdWMxXGRlZmYwe 6yvm967iJPod5hvDJLjUbZ7 mFQkSYLarIMeE660NQUfTBb yp6ndk8KiWLFtpEAqy3T2DQ RCbunovMs5fNthB36zz5X6Z xwsC1glPRPjNCUqQ0FtUA6j VYTqBoz4SNX8ROS4KOUmDRD kF3LpTT9gFTAblRYcNDd4q2 kodVzbHAPdYAF8d1icIGgkh iWmKO7zkh1jcFb5b4yszqCg FWXnOAOquLCUGMDzI8QuvVm eHj1pzRs6lDtyUqnqJOP7Pt n7NY4uvr39acc9tJpmXRVbs wqeJjR1KIqiHWEzpibgYUo9 MFxtYXJnbDcyMFxtYXJncjc yMFxtYXJndDcyMFxtYXJnYj tiEOrqLMEmMAY5AHbpx344Q VW4UNxhz1rmc6dvwDOpKez8 AKCqCuCrYazuKMvdx5Bqk1k yELPxdh0sQCL8qSTfiXkbi0 N8bBStNXCzhWQvxcTdNBXsE hH7AKooLU4oli66OMNwUKQ8 zf7lgXPcoVzrimFglGSfSFn dI5RoAYBam726XIElW1WzRT Ice6U5riXnUvQeIYBfoOA0g yG1OEFvHLh4xLMjsoH8mcDd aDEtQ3vynU14ErFndBHpE5H mpQ61UySbqTKnL2XwfD51Xw FmiDTgU6ScvC39QnUwtOCuB PWvhILuAn3khNYkpKNgl4Ir iOScKTnfK55qe477JMBxfbI dP3ydaSGspbzpcTWtryhyWT jfliR5ZMFtXGCwSYbqEZSzS GZzMjBcbGFuZzEwMzNcaGlj uWczHLxpAvGiEMNfQMpwI9e cZjBcZnMyMCBBLiAgUmVjZW y1TMSfvD3vIv2krKBgkD8lf AMyVJvqPHE6yCBiPDYbLTVt FTEsPI20B8FdkK3ff8YkGGX qu53nZH5kVDRbyTYmPZgyie FsdmUgbWFzcyIgaXMgYSAxL wCdJ66ztE4peWRpV2PoAWO8 IDAuMyBjbSBpbiBkaWFtZXR phuP5RA0zeMwbuzT8wKKcpY EaYWumyAFeGGgyYBH5Et2fr SDpSGBwazO1u0OpVDjfRDSw s3CfpUBuEPHeMuftBOVlhCR nTRGhbxRyhOjvrM9iGbStXs MyNFxwbGFpblxmMVxmczIwX WamttuzQQFyHJplV4ziAoVk BESqiAhlHIeur8HkMVAvKEY wUtUuPYXwZOPya2xgDA45JJ xwbGFpblxmMFxmczIwXGxhb xkcGRDzCAdqR4paLlFpJJYj zVfpUHukv3HaUVYvBNAbHdH ccGFyfQ== MICROSCOPIC a7mrnOVqCWCpmZE3NwOzVOT DESCRIPTION (test code dt1lsg3DquDOrvLOeLYkgmL = 3371) PurpKbxp38bMS0hF95SS2nH XOmGfF8VNAehjK7Jbi3ZSKf NGNhlXDqA121j7wca5tnbwC vwUI0qLfdRAWfbvcgKlM2QN szXUMgolgeEFy9NNtkTBNeg QB3IKXknJWvD9OjPCXeDC8t vxr5TIT1FPbjFTCxIeD4CLY dpQSgMBHynOwcEZyhe724EC Z9QoQkJPQrprBanIbbqZ5bX jSvEAYXYFWqd7NcNMYcEEPh cn0= SPECIAL STUDIES (test c3gnmJMbJJYrtHI2QjJmTEZ code = 3376) ul9xmn2SytKVbmSLqINqflJ ZpzeWmms73qET4bA12GS6vN ZKgDwM6FFPcvoP2Svt5TKJe KWBhkHRjP051HSLsIRUchTv uqyc9rQ30XQCofE6zgSJzWK ycbkNkKRknciGeudRnHbm3P AB3cMipFNRkkptpIxU2FNkg BXKmnzfdEIc4YFdqWDFsnBB 0QRBdtCHjO3RxFFOlHJ2rlh g4SRI6DYtcZOMbGkQ4YCMmt YAaZXVuuXmcWBknm659UGY4 OoWiZQIomcFhzYssnI7hSzU cZnMyMlxjZjEgVGhlIGludG UlvPXfkDX5jY6wDY2cVZOve EFjH5FmZWNusuMzsFGyUOW3 jXFcuKRuPA1xYWgwdDOcs8l rp3SbU6gymIfneYO8ZJ3dCF BtKHUbNIehm9SgsR8qOblcK TCkS1WfRAOWM9YHLATnRDMA Md5KRyFMSjBzTrIFJf3mBWy NUywgQUZCXHBhclxwYXJkXG WxEIRLs203fl5rYKDlgWYju nACgSFpdE3hDTqpCAlzKQds xMNpLWeap1pdMRPhj6a1mZM zXYNdwdBap6xjMTrvbuVjBZ ChdTOdrBCiHFSov79nZScaj JvbhLmlRRWnl7QuxSqrh2Hs KmLcEEtzn7AhY12icIRsdIK upJloGWAdlgGxWTRsz18fc4 tpNDNyCbX3oCVtbLJ7uNVtl YYmg5VueJhxGWIcb0okKYMy wi9uavagsEGou7FjmA8kzec rCEwavUIltkXxYTFbd2g3aP EhAYNnXDWiFMdkbBd8FYNmj 083xb8rycE6hJIxJXG0GUyn YWJsZSBhcmUgZXZhbHVhdGV lIMWbjoLwQJHuxlLJoU67tu 2pmLN8c7LzTE8iv3NhdLH0L WNobmljYWwgdGVzdGluZyB3 HRYfuNTgKr3ptPPvJZH7CVT dlLydwyIGjT8hWNPfIYd4NS LpSqHnSzxgveHSYYBhG0ZyT ATskzGazlivNZG4mO7lx0h9 QHygAp6pBAFjnqpkc0egieD ykSNsk2NzSHEzipKvp5LbRV WwobQpnYBpWPRzwdYjku6cb mFlTVJyTIFeW8LpmevfpUqr pqU6QIPvIKHjbELlvUcdFNA oCIc4TBcgvwFyj9KmRzCwef TxuAUmkxCtGZ7fUOAnvWLkc pMkIPY3JYRwRTRZBjQcQCSe w5JzBK4kOQAtzYbiBGIrfI0 as6CmXBTvc34yHGKvLVUUXH EgaGFzIGRldGVybWluZWQgd RrrvQHyqENvLRRmFDAuSD9m KLSmamWirFVyz4WknLUgviV dn9GtulNhBPYuIUV8EyDYaD WduNCasDHrvyI4s9FhASXue sChjZvpnMWlwRMppCXww3Wa hm6hROCoi3akwUbzNM9jrJA iZSByZWdhcmRlZCBhcyBpbn Rcr7IxE3D6oM3aIGawm1AzD l8kGYFyg8OvanWeCoIJkGnn CTgyBg3gMMIsxzhajQUyR3N ydGlmaWVkIHVuZGVyIHRoZS CPeTtbdWHgnCGYFHIrtsD0b 9H5PMpmvYGpzmQkFL99ZHZk EK9tgISlrQXol0WqVTg7EQZ rH2lRUV33WEebVDMepNOpaQ ybdUFmEFMpJPBuzeXjhl4uw XlkfZYdm99gcWX7bZZ9KDGh mH1cQ2ZvJFhzIk1sMDSzhev hpMBjtJrfBy1hvMBzaV== Gross assessment was [facility] performed at ([facility], code = 2777) Department of Pathology, [address] [place] [address], Technical component [facility] was performed at ([facility], code = 2778) Department of Pathology, [address] [place] [address], Professional component [facility] was performed at ([facility], code = 2779) Department of Pathology, [address] [place], [place] [id number], [facility] [id number] 15:29:08 Test Item Value Reference Range Interpretation Comments Case Report (test code Surgical Pathology = 104) Report Case: [id number] Authorizing Provider: Logan Russo MD Collected: 06/18/2021 11:41 AM Ordering Location: [facility] Received: 06/19/2021 03:44 PM PERIOPERATIVE SERVICES Pathologist: Tom Paige MD Specimen: Mass, MITRAL VALVE MASS- for MICROBIOLOGY then pls send to Pathology DIAGNOSIS (test code = [id number] 3220) uZzEwMzNcZnRuYmpcdWMxIH tccnRmMVxlcGljOTYwMVxhb iAwTRWgiSNqT9GuofuwOWtq BS9cOV2qfYzwiHHsjSUrUAD zKdFon9wbs062sPQve7ijVH BJoilqgTb9vLhtO65by6L1V lqrK97heJRmOPG8WPNcRYOv sOEtPXQiFBQ7ZJWddNVjK6c pLHIvUJ3tsysdKJzjMOhcSK XltNI1QBHzcDRnO8KzZEWhT VmyYLDexzz9RzVjFm7iqTXt eTcyMFxwYXJkXHBsYWluXGZ yCbPqMP7kRVHWThQpJV6KTP JBTCBWQUxWRSwgREVCUklER I9OLsZbTJ6LNFFKOKYRTlzi cGFyIEZJQlJJTiwgQUNVVEU cIJ0DVEPRVTRCT9FVAAXOW4 MXQ7XQHVQJXqRjG6YXV0pVK HBJRAwIKd2kbIKvTMDDKSLS CTamO0KJKV7TEDUWTyVKGmN OY2OWK6GWRA3ZY1RMOBAQVb UNQG7XAG4XSAWPIPBYPlYTN GBVZmZBT0oVF2ulUXbxNJYx D05UTsBGJQHCZ31aF7kGYKN CRWCBC9VZR3yHI6nEIJrbN9 KPBWqPKzDFKgZDAEBFTU5DP uFUTC7rMSRyhf14GCL2FqAc i0Y3PFD7QEMsPATbb1icDDB mbGFuZzEwMzNcZnRuYmpcdW FxEXKoWsFoa2rnk371pEVvo 9fnFPFdKvB2zVLsLAUjwPWr K486NHJzFAlip3uhk3NyCAA qrTKsu7O0ZIVNngmobXu6dM quV80sk4T2VbugH9afFGAgG ZNlL9ScXH7iUPBwIxb9XJA2 JIW0DSUeENTkA8UvTH8nVNQ buSDbPJf8t9epgOscWSAhWR Q5h1mqKDoaztStPX4jzr8zr Ea6z5gklrYwGCFyJHRyjGCK ZLUyK1BkxTzaLy9oeWq1hOc iIjcfNGR7Tcm3PZ2hjl41ny o9iUzmFNNshfnoYrA3TUbcO MAhyzozIJf2OEkjNITdyAO3 TEOlmZCpF2HkPBFsRX8thui 1SFW3OMibDIBjUdP2JWUftT TkJONtiDfeGHjly934KDW3Q yMzAL1tK5Ccq2R1xS0kdOYp BWRwmCCvNgUkVQPzgw8kpTI tSHeoi8UtGDV8ftU8pOGyjV IkLLJwElG7COtvHY5jdb88U PBzFCP4mu5hzDAspTumzcMa wLIgXTgxB9GwAJVfk793CWZ oS9QpKUYqg5D6vyJsRiOiZI MtmPK3zgK0PKIqDN7pnxhwh 8duHKfjVFwpQVWjykK5wkB3 HNSqkOXeY6MwlF1eUUUxBY3 nfmkey4ckBLU6YTfjKGXfJR M6ZlGtOBDng4Sbwcz2LwLxl 2BreOVdJJzvZ95qi021QPQc jiLkL7aeqKFjsgrxhQJssap jWEebcpE2IDEgYYvjxbtiNF CpDErfJ4wbQpGdIWVwfTmtH Kson7BpPOKgKUYsZzEbuAIw EGVfQpo4NFZvhWNeYKWaIgQ yX5gkejxkQzMZGZRwu9tnZ7 xkyLQAvPKdV8StVMrfbkFaQ JoyTAipHxDkLMFuMZ38SVW6 XKUvru21 CPT Code(s) (test code v2gvlGHoXFRzjOP2CeLjQJO = 3357) km2fcp2FfnTVfwVBjSInhkX JwzeHftb72nMN6aP57MZ0mN DRrUyQ3AALhzqC2Mxo5VQEx XEUrlUOhY631w4cbz1elkmE khFI5gNkhGGGegrjuKkW3MQ pxIDTynfrkJAw3YMrqTSKjv CN3HNZebYSmC6HwVKQyYR2t lng0IUH5EGptXMNeGmJ5CCQ haVUmEEQaxOjpWPobi918FE W5RrKwAQNfskAdnSjtvC5aH aRiJCP1PDZuYTczCHvpLAOL U5woNLF7 CLINICAL HISTORY (test p3chaAEoOBPbmMD5QcFoDBX code = 3356) hk3dgq3WmeWJcmAVnLAehtG PythGqhk12xEB6dC96HO7aZ TAuXlP3JSCnjnT8Trl7CCFo VDIyaHLiC934o2guo4nmqlI rnRJ6lEpkPUGqlytbCkW6CC pmMFJkzskuQOr4XRyiLVWhf XN7LLIokYAuN8HbQCSoLJ6q awa6DYW0GYgyMMWiBmP4WQG dmWXnBKLtjYucTWdqv532SK Z6WaDlKWDewsBrwVpcaE2lY vAjIAIEnpWdC4OkMNe8bGZn cGFyfQ== SPECIMEN SOURCE (test f7cwkSQlOOBolBX2RdHxQBF code = 3377) da1ktp2WutPGknCXmXEgdhB IchbLwag49zNS8pB64KH6jE TGzEuR7VAHtdtZ5Ynm4KBSj TDAuaUCdM584h6eib4juwnR fdYZ8tTpvLHCdmiwlEwN3ZZ auIEOdbjufDFt6KKbsOFNfv QD1KMQunZUwD0IvHDIlXS8h aws3EWX4OAquWDDwRmN1SAO ntXJpNHZboLrwMGusc913KH D4VqIrOQQkibAauXtwuE2xW nMyMCBNaXRyYWwgdmFsdmVc cGFyfQ== GROSS DESCRIPTION w8gvlEMrIYEpxOSvQwMpXNT (test code = 3366) cWPBry2vhDOSkiSAaLnVfRm NcZnRuYmpcdWMxXGRlZmYwe 5bzw841kOOib7ajGCMqEsN3 vUWpRZQslADvZ140LAOdOTh pu0tiw1MzSTWujSBww4R9CR YTtypltLe9jWfkM34nw5Z4P zhuX1nbPWCaGHJhE0YmAW1d LWLoTcr7UAK9ZRS0JDSkOWP lZ0BtRX0gOJMskBObJVc5i6 apdXscOVDcRDX4y7leHTgtd iCdXO4bru0ngNu0b5emgaBe FMWyBQRbuIAXAELxR4EtjTh uKa6dwCx1oZaiUmalPIU4Yw k7PG6bec25zss0bVhlSDTea fbvDhI3EKtuXUSyoivhXOr3 MFxtYXJnbDcyMFxtYXJncjc yMFxtYXJndDcyMFxtYXJnYj toOHguHPLoCDD7XAypl882L QT7QGkfw8xto6gxjBUvHzd0 UUKkGaWvSbpdQMhnz0Eqp0l dHINdfb6uVCD0bZYjlZgsn2 S1zYUxSTKctONqsiNfIJWzN jY9GIphVI6mdu07USBjPMF9 qk9crLRkmVqsqwIhuIRvXFb yX4VrTAYqs012MUCiH2ZxIO Enr8K5gfIaFaLyTPQmtRA3c pA0USOoPVi1bPQckyL9wiSp kTHaE7wehT18FsKusDMpK2J zwM75VvJxdTXtW2VxkO44Xj KgvEYsJ0RokY10VtUarFAdG YUtlHQwSz3iyHHheCEch8Hq pODqNSmiY13js259AWQhclV eI9rvhZSjdmcrrJUylqwhTO oyedX2WWQpDHXdDChzTEXiS GZzMjBcbGFuZzEwMzNcaGlj sGenIVjoGlAlFHLtJZccO4m cZjBcZnMyMCBBLiAgUmVjZW p2SFRqbQ4jOq4kaIAomV8lf OBqVWbkESX7tCTeZUNvRMTs RYNoBW05D6QwiR5ok3RbPLP yk74kRO5xYAFgvRVwMXnqjv FsdmUgbWFzcyIgaXMgYSAxL yLbY59vqW7psOIiL6ArGVW1 IDAuMyBjbSBpbiBkaWFtZXR ddnX1YR4hnOusteN0gGUasL RfESwhqPFiGIvrUAZ7Ot5zr HFuJPZaqeI1x5WzAWpaZQRj q9QisOYqQVAkMtqyYZAosWB tHUYjfrPmyRyacW6cHbWxYc MyNFxwbGFpblxmMVxmczIwX YhervdoNJObWEvoX6erWuLz FMNrcTzrPReej8YdVMFgAXP xSnBvHWFcBSJya9gaOI49XI xwbGFpblxmMFxmczIwXGxhb azxAVExIUdhU8gpBzNqNLOm dOqgAIyop7QaQOZuUBVoZrY ccGFyfQ== MICROSCOPIC j4wmqIIxOHEduRL8UlSdZIB DESCRIPTION (test code ty1jtc5OhsWRqcCKbITcinT = 3371) JapxJmjv52xJR7cE98LI5nT TCeWpT8RFOwgtL1Omi0GGGk ZROizEZgS835o8res2thqtR wyZH7pXurPWNfwlleBdK5WD biAYXugbezMCi0IQweEFLzh VU9MRMzqEKfN9LvKGOlOG1b ccu6LFM4CNneAXHbTvU3FZU poOGcRQMikXnuMTcld904FN Z0HiCgNZDtwjOltXhnkQ1wQ mZoOJWUDGEuj4IpQFMlBGNm cn0= SPECIAL STUDIES (test e7iiuFWxCAQicHL3BlXvORB code = 3376) el8bar7BqiSPtsOFgSEqnyV XuymBgrj06pAU2kY28YA6xB BHxKlK6IJXovfM5Uds9STVg SQSbuRNpQ168JEUsJEKfjCv zdpo2tY70BADtaX8buEYnHO jlulWrUDsowtJtvsUhTne6V TW0yQbfDDUzupcdJxI0TVcx CCHkmndsZPd0WWjbNLXyuFL 4PGXlkPVmS3KoTZPuMX2kwl c2AMS1ZIhjDCRrIjV5EMLvl JKeIDTifRbyPVphv661FZU8 BoKkLIGfcuHsbZytwQ0zWeE cZnMyMlxjZjEgVGhlIGludG RcwQNyiBG2yU4dNF6bREQzk WCfO2SbFXRjslSsfFXiLTH6 eXIifTTmJT7fLLpikEMni3o ji5RsQ3ehdAkqaNC9XN7gSM CyUZIwJEtor8LyvG2yVfurC HTgR5SfVPEXS7SGMPOeCSAD Gq4XXsBPBcItBjHAJf2uMXu NUywgQUZCXHBhclxwYXJkXG YlGJVHz757oe0xFLQosKZmz iPLtVNfcX2iFBusYRrnDGoo fNEaAHsbe2fgJBLdx6t4ySC vPJUcpkMbt9mtKJulecAsZL BveHTowQRhMKTyo61pTUlwd ZcdeTcoBWMsj9FspXsxe5Qo ZhHhSQlfg4ZxO84kwQTwcNL umZcyTSDldrJoSIKbl04ii2 xgRTZmLbK7iIFpaOL6sIJyj VVpy7EmcBpiFEGtj8bgJVMh ra8ddzlgdDQax1XwdX1lhxp mFBxsuTGnsiPfXFDal2x9tP CoUKVvBNBpOCgywQo8FKMhr 896nx2nenY8vXYyGNS1YQmo YWJsZSBhcmUgZXZhbHVhdGV zFIDlsrHoKWJmotBUiQ47su 1uwEE9o4SkTA6pv9JlnVE8S WNobmljYWwgdGVzdGluZyB3 ZJIauVXiSj3tkPOgKSF1TAK nnDbfhwUFtZ0qIZQmQQm1CU OzYjXoQvfwmaDGUFBsK9IoW QHcplQpaelbAXN1zO8we6n8 LTncVe7xEOLrslsld6wcwzZ mbUByf6ZdVKOtkfCnx6EzXJ JgyrGfaUZeSIQhrcSkqw9ag kPsIOOcZOPnR1CqmjhtfDys qbM4CMJxADGqmEJjcAqsMQX gRJx7QRcvuyHqi5DdYyHwyp MmeQAcqfJdHD4fMBXswJMxz cZsRQY0GLJtAOQVWlHiWCHi b0GwMB3fHALiyWkpWKLmwE5 au6QiAKNin07wIATeETIJEH EgaGFzIGRldGVybWluZWQgd DdlxMBtlHWzZOPkJKPgOH4f VNHlfwDniVHqq5AiyQDofgG oa4AwbkMlOGDvKXW4XhFQzM BpbSNbmIIfcoI7e3MiENHhv kIekIyjeXCdkYUktKGwa2Sh ob1iBKCot3tjfFfkGT6ylSF iZSByZWdhcmRlZCBhcyBpbn Kwa1SbJ8K0mH5uOBtfc7ZnH k0wHJWsw1UpbjVmXsYRyXka UCgbIk0gFAFvgppvpAGzL9B ydGlmaWVkIHVuZGVyIHRoZS GVsIemfHNxvEMWYBIeokR1v 5E7QGaecNEaddAgMG72KHXf IQ4gpDCqjLDvd9QlURo2DDL gG8hSEQ60MDquHTPleIQuoU gfkQWzFHNyPRJdtzKtwu6bq KqedLOkk01qgYV6mRI2IREe xU6zP1OmKJtwGw9zTMSyuab ydWVbiEtpPm5yfSKplG== Gross assessment was [facility] performed at ([facility], code = 2777) Department of Pathology, [address] [place], [place] [id number], Technical component [facility] was performed at ([facility], code = 2778) Department of Pathology, [address] [place] [address], Professional component [facility] was performed at ([facility], code = 2779) Department of Pathology, [address] [place] [address], [facility] [id number] 15:29:08 Test Item Value Reference Range Interpretation Comments Case Report (test code Surgical Pathology = 104) Report Case: [id number] Authorizing Provider: Logan Russo MD Collected: 06/18/2021 11:41 AM Ordering Location: [facility] Received: 06/19/2021 03:44 PM PERIOPERATIVE SERVICES Pathologist: Tom Paige MD Specimen: Mass, MITRAL VALVE MASS- for MICROBIOLOGY then pls send to Pathology DIAGNOSIS (test code = [id number] 3220) uZzEwMzNcZnRuYmpcdWMxIH tccnRmMVxlcGljOTYwMVxhb iXlNOFjtTDdZ6XlmkoaXAgr MZ0kIN2esUdmhTXfsTEkDHP kGoCff6cis842hTGqp8cdRS POfnghjUj7fIukB58fh2F2T mbtZ43mjEGzAPV7YFObDDYw kPKsIPHpSPD3RLBzcAZgK4i yHAWqTD4akxepBIhfLAagVN QcqIX3UTKwyPVrE3RnBNWoP VbmRUJjavq1TfQdAq4ecYNp eTcyMFxwYXJkXHBsYWluXGZ mJaYrYS7nZXFQXgFlUN9NBL JBTCBWQUxWRSwgREVCUklER D9ZAeYrZP7NUKVCCKBMEadd cGFyIEZJQlJJTiwgQUNVVEU wVA0VOPMPTILLE3DMJPNMZ9 OPH6ISOJKDJkCfR8QQZ5oYR JMHLHmVVj5kuOOiTIBQDDWS UUfuY3HYJC0QYEEJCcSFArB CD1WAZ3PILN2LV4IASHMFAk LXSC7FBQ6MDOMYKMQXPbZIX UJOKjJSV5fMS7bhCTahCVZq F78FOtWSTMROG59zP1sZVAE TTBQJC7UNS7cKE3kGISaeT9 FZADeGWeBSMsMDPCURVS9YB iREXE1mCYQclc70JDU2PhNc c2W4JCK4TFOmINIkp7bkMYJ mbGFuZzEwMzNcZnRuYmpcdW GqGDZfAoAmm9dus997fWRfq 7vfXLRuJnH5cJQxNZYicADv J942UEDsGPspa3gzy7ZsGCO kfXWyr9N5NMNKlixakPw2jL waA81pn9D9VwuqM1uiMJWdO QKnI0AbAR1vSJQkJnm8HDF2 JES1IEKrKJAvF8TyJB9kEUE soXObZDh0n0tfkTrzLGSaVB P4o6vpECswelIuRO8lgz4hi Fi2d7boqvDuUSCsJPNqzURR CQDfO8QdoDjzMq0ylTm8mQz lFwklTCX2Fxj0EN4ebs42wz d5yPkyDUBpzihiVdZ0YGvvC YBqzksdCYq5WCpjMQElhOC8 NJVdfRWcA9AoGWClTX1ibew 2ABP7BBmlNUXwXfX5JRKynG VzBQXtfPmuNCavh399YCG3Y wUgHP7wA9Nka4F3cR8yaIVv BFFibHAtJsKvUWYhhv2phDV eOApjl5AvEZQ6kaX4qGAtuY DlZJOeCkL0EDlvAI4qhq76F REwTWH0zy0cuTSonWqsniWx yJWuSSymI9MvMKHvn966SFR xK8FfTYIrt0D0yxUaKnHuJD LhxNS5gvY4KUYaAO2nrjayx 7rwNStsZTfuWWHqruX4chE9 HLBzaYXkP6AaqI0sFBSxLY6 swrrgr8nyUJO2YHskJBJpNB C2SeIjIWBje3Xjzpt2BoNwz 8LixWBtSYeyB39pc275SGYd ybMmA2dcxNQjneiudXAkcid xUCldxzD1RZIdFRffyrobUB DgAEwzQ6hhPgMyEYBzzKlcQ Ykut3RpXFVkVLCqTjIxdSIw IGReQdx1RWCrbSJdFZRcOvL kS9elxzmbSjKYCHPxt9rxW6 bpkINGwLHhR5VcTNyelhFzS IscBYdwHhYhPETeMO70RGT1 VIWmbc65 CPT Code(s) (test code f5qpkXIbFDCvnKP7IuJkEBA = 3357) ob1elw9QglMLbsUSeZIsiiP UcyrKeef23vOA2lS56WH6nE ZVuIbZ6JRHfynL6Ehq2WTJd NNBtbOXtD077w7itw4yoqgG xeJH4bGqmMUVrxayiTcD8IH ixZSOwpdjtCTh7GUepTBBbx OI0GJAjeVUiK6KxGYOvQJ5t ije9SIX2LYvpCYMsDyY0OZY paCClDKOxiIiaCPiuk456PZ G4QvBdABLevrUrgSdleD7wR tFhDWB2WEUeJCetNNhiZRRY N5ezXFG0 CLINICAL HISTORY (test h7zzoUHpEBBkdVO1UjCxFHB code = 3356) na4uhz3OhdAEflMQfMGnbrO WizbPoof60qFK9oH24EY7aJ WLyJyT6JMRqkmC3Ewn2YZUq APRbsLBcS742a8hdp6dtcbJ zuSK3vWpaFDCvxdtjVjY4QP hzSVOsftbpQQw6BAnrMKWtd WS3WIAiaKTsH2GgVHIsHN1p zkk6PVU3FKnjJCGaJbQ6BMY xsOGlITRzqMsiFMpeh770EQ J9NoVaBDVxxjAwpJnszJ4uI eAmVZSYdqHtC0LdZBs4pZVy cGFyfQ== SPECIMEN SOURCE (test p7yxcIVoFNQfkNF0DiIjNAY code = 3377) mt4tyb2MeoBRfoEQrYUjepV EyleNtsz48dJW0nK29GQ7dQ YKuJuC6MWVxtdC3Ith9FFTx JFPhpQYbR072v0qep5aoutQ ihSS6mNcoMKOjoutiJwQ6OB tdYUKzyiqjDRk3VAcyMGRwl VC5RVEtfTQhK3FqQCLvDC1s brk1DAI0GNybKUSsSeW8PTE fuTXoYXHbiDcaRGgdk956PW S1UiLeYJOkxdCgrJzgnE6fQ nMyMCBNaXRyYWwgdmFsdmVc cGFyfQ== GROSS DESCRIPTION y5osxBDmWCDteYKsBxVdYHH (test code = 3366) jOEVfb7dmJOTygYFdAkWtAp NcZnRuYmpcdWMxXGRlZmYwe 7fvu826nWHhh0peXMUeIhF8 kPYiKYRneVZiL523RTPeKHg cs0ids3BjWQTuvPHwl1U4HM TUaczupGu7lLjaX79lp4Z6Q xolJ2acQJNbABDgY5LiTM4e QHOkWya5QHF4WTC4YKOiUSU fG1IuSW7wWQLmfAUkTWs6l4 vvbExbKIVzYFE3g5mhYMuya kNvMZ1myp0trKr0q0htkmSs HERuKOIghBMKATQsS2KuvIk oYl9oeHv9wNjrApcpKDB0Kt k7AA4utb65bii5bDjiJZTqu gjyKaA4ORjaBJEgxspfBOo2 MFxtYXJnbDcyMFxtYXJncjc yMFxtYXJndDcyMFxtYXJnYj kdCUcxGLUlKFC2XDxvc405E CE3ATmon5cwh6vdcEVmRpq6 TCGeHxRyXcncUZdnf6Hly9e vZTMmyx3aMNQ3cTRvjIdsy2 E5sCBwXYFelLSmvgPgQPYqJ gQ2LNrdKN6wiv66NHVeGNJ7 bo1qwPSgnXhhsgZppHXfPUe lF3YgQVQbl890XHOxH5MdDP Qlw7D1dcDrKhUpYWEmsNH9n uQ1BQXnNUi0sAKvxwN0tvFg eVLdR2pibO57XsWwmVBrF9I faV04McFliNAyA9AmbX59Ds PtiLEpK3VjzQ82FvDtlMMyH RGubMItFy2mhIYtbZJlh9Yd dORhCVwgM32pj441UYZrggU dB8incEWujutdeOIsbiwcQB cisrG1WLCnKXGoEDesKPJfQ GZzMjBcbGFuZzEwMzNcaGlj iJqcDKvfSgSnYKUiVVbvR2k cZjBcZnMyMCBBLiAgUmVjZW q3DEFwhR5uFs1dnHXouC7sf NHlEPhlZHX7zROpKAPyFTSj GCTgQM09R9CvlA9uz4NgHVG jp85vJP4wISZevEZbWTpanw FsdmUgbWFzcyIgaXMgYSAxL sPjK73yoN9isLGbZ5UfYLF4 IDAuMyBjbSBpbiBkaWFtZXR jfrW3JB6bjRloqhN5fKMbxO JpXVdxjWXsEZqiTCC8Uy6gu HTfUQFlpuW0x4GoJQbsXRJu i7JiwEGwWRTwXpewSNSmrAP fIOCkydJmoBjowL6yJrHvPh MyNFxwbGFpblxmMVxmczIwX DnmpxerWEWhMEsbR0mwThIo VARpwWbsZUpgm1VnTXJuRSW iVsDtOBWsGWByr6vjTC70MP xwbGFpblxmMFxmczIwXGxhb vjwOZMhGEuzU0clSeVxWXBq gAkoJBjxp7YtDMVpWHLaLdO ccGFyfQ== MICROSCOPIC e5kvuSBbYYBrmGJ7JuAaUTH DESCRIPTION (test code bw4kxw9NpgNDrcAFzBAuxhS = 3371) UqswCefi02rSJ4vU49IG1cS GYqCaI8LKGsqbE4Gqa0AFCp WXXdpBXdP351j6hgf0andkY ucUE8gXkfKIWtcvzuXeF8CQ pzSIQenpafUHh7HWyxDNPma IU5FILluUOjA2QhNXFhQG4i gfp0BHL6GHcyVINsUtX4KGS biEFkODAiuHxsPWzxc095HR L9NhMpTFYluqMsuVbpzJ4mE iOrFISPQXXgw3ErURRaPHUv cn0= SPECIAL STUDIES (test o1wdrSGtUSHmsMB1ZjNuJBY code = 3376) jw9fqy4XvrROcoCXjZSrogE PefbLvlu68hSA9kX14YB4mL WEhFdD2RAJbydI9Cep4SHUn POGyhPYaD025ONNuDUUgdFm dgjq4jE64COOvjY9vsWFtHU slifZcHRoerzDkoxVmYyq1Y YU1cKumRQUbgjgbArS7ONnq SDZunoxpULc6SFvvOMXraDQ 0BDOxrQMcZ8IhQUJqMV8yrm q1XOG6GRivQMDtSpO1VFGis MTnGSZwfIyfIUqvn361LSR0 WqJzBEXvlaAwhUafoK5mAgH cZnMyMlxjZjEgVGhlIGludG HkaVDotTF5mA1eBP7mLEKmu IKxU4DoWKIaqwScrJZqMDC9 cGXobSLxDT4sEMebyBIss4i wo3CfF0ezuZmjnIV3BY5oRJ JaWIFmTUhps5ZeoJ7rCnzfJ CYiM1KmXFPQI1ZFBZNoMDCV Pv1REjCQCjAmYnVFXg4vXZj NUywgQUZCXHBhclxwYXJkXG DsDZQKk503xv1vBDClwZHzq uATpJFxhV0uGGyeLGtyPCif wDWxICohl7bnHSGxs1l7nAN hPVYkukNnd7jmTBawhaJjFA DesHTajMSyMMHim07kRXdhs QewyPpbYURib5DolHaor2Ya ZfNcIQtue7HiE90idYPdmAD xrOlaOETstfLtRKIqx96lz6 ecQXYlNaN3fOTbdLA0nFXtk LQnw0WnhMslTTEkk0zxPCSk kd6ojuecdIPfh7NuqR6lyaw jVFvoqGNxrfWoHTNcn0e7pK XqAEXgGVScNOeajUn6HZMjm 755vd2imyV2sXDaOEP7XLqy YWJsZSBhcmUgZXZhbHVhdGV cITAfsnBqHEMzttQEsU98ob 7fdFA3v1JaNA7tz0IxpDZ4V WNobmljYWwgdGVzdGluZyB3 NHRvjEPaXy7naMAiNXG5MHV rvIuvitUTcE5jCDRwPQg6WE TpMqVeEbxtlkGNJUTiB5LeB HEowlQlxutgFCU0rI4bu6v1 YRwgPh6oGQHbckkgv3rfazJ xnLUza8CaJVGnkzNnj3NwDT JhlvRvgHGhVPYogrXnza0yd rNqEBUzYXNrM3OhfwuynYlo dpO2AFWkSEPlzXHusAraFCD pQUi9VMgaxaUgo9QkOsMtwn YvgVRbfdCkAZ0bQKAcqDEsl mZtRSG2JJGmCLZEAzObHVMt u4NhLX9eYHGirIlsYYMfbQ2 do9XwXMNom40oPPItLGOZAH EgaGFzIGRldGVybWluZWQgd GzteEKqwXAvYXOjPDJlYK0x DQHztpKkuXPek2PwsLMbfjM oj2KxsgFcWRCsBYI7HdJAbX VroORumCQsvtY4n4JiIIOjq jPaiQyilCTsnFAzuKWxm4Tw cx4hXCGxn0szcJfyAT7foUO iZSByZWdhcmRlZCBhcyBpbn Bfq1UnW2N9iH3qSBeer0QqU m4oPMRvv9GqruAyYmIYtMtv EZmxTd8lYNMfaphzxMDxX9H ydGlmaWVkIHVuZGVyIHRoZS AXeScpfKOcnLAOZLLxxrT2t 9U7WOnvaJNxshMsVE81DIIh LR4yqMKptWUib3KzAEm6PCW oT8sXLD64AJgvKPShaCJhxY edoXDuZMEzUCYiitBjdk4ai HyycABal67vzVD3kAM0RJSv dS5bU7SnMVktKq3hDWRsdos xpWZldIllPk9tuOMpcT== Gross assessment was [facility] performed at ([facility], code = 2777) Department of Pathology, [address] [place] [id number], Technical component [facility] was performed at ([facility], code = 2778) Department of Pathology, [address] [place] [id number], Professional component [facility] was performed at ([facility], code = 2779) Department of Pathology, [address] [place] [id number], [facility] [id number] 15:29:08 Test Item Value Reference Range Interpretation Comments Case Report (test code Surgical Pathology = 104) Report Case: [id number] Authorizing Provider: Logan Russo MD Collected: 06/18/2021 11:41 AM Ordering Location: [facility] Received: 06/19/2021 03:44 PM PERIOPERATIVE SERVICES Pathologist: Tom Paige MD Specimen: Mass, MITRAL VALVE MASS- for MICROBIOLOGY then pls send to Pathology DIAGNOSIS (test code = [id number] 3220) uZzEwMzNcZnRuYmpcdWMxIH tccnRmMVxlcGljOTYwMVxhb jOePCSwgWNcH3OyuezxLCjm US2eTV1dnFmfbWMohKAsTWO nVmCht3gqf794zEMbo0owVK EUaxeivGd5vUlwG98nw5D7O pqcY66dxDAlQUS5JSOrPIAp uRDrCRViQUH6BBGhrCYiB6t aJMCtGV2tjeurGHwbOMcaBQ UamOX1PBTrdMReC6NpILIgB WviBKIkeud0OcItKu1dcNYz eTcyMFxwYXJkXHBsYWluXGZ iDzNtTR2yEYHVRdCdIL9ZHK JBTCBWQUxWRSwgREVCUklER D8ZAiGrHX6DGZCTLBUNTofq cGFyIEZJQlJJTiwgQUNVVEU lRG6JRRHXFKSNB8IGWDCFX5 PWT0DXVEUKUeJfN9BRP6rVF JLSBJoGUw6vlCZfIUXHHWAC KMvvU5OWLD2GZQZHHkJUDzK VR2ODR4VCUY3KR7QPPTWFDq QKER9TDX9NPRGVVRXPDgFVA QWAFdNVY7eGK0xzAOwtVLVs E07RJgCUJBRLR12jU7zSNUW MZUHHM3GTM7oIF1jPRGfcB0 UDYOoNYlPDVaSMAWHIEN2BX xDYVS2pULTxso07KRP8NlOl x5E5SGO4PEZiMKBwb5hlQJK mbGFuZzEwMzNcZnRuYmpcdW YnACOdVzTpz3iyd347jUOfk 1uuQSOaUtY1gRQxJRCidSEg Z511LMSlIQvyu2vif6PrLNO eeLUro4E3IZDJwxtgnVm6hX yuQ95un8S5SvmcQ7gwPDKqC TNtH0UyOI6mTMGlZob0LSR9 CCV7WPJoJOVyD8TkKU1xLKX cbXVpXJp7x0ugeUgdMUAkSJ U8o2pmEBmxylWxFN5kmu2gh Kf5b4rmfnEvNRKyYVOjsXNN REHqN3EumFigIa7kxAr5vVc zZpmbFTG8Tnz5KK1mzt58co g5fJjmPISmriwzNpU2VIikH HTptiuvRGr1QZyaGHSlfVC4 UJSdxLLfN4VgWHNiRX0dbob 0OPP5FFesNCYqYtS7YHZaeU MmPBYqlRhsISwpd981RME8M lClJT5tU2Pyn8O3fF8coLJs SUYhzJJyUwPfIJQnni0wsAX hIInvt0GsPYW6uyN6wESsxB NbEGUoMdN6SReuSU3tgn70Y PVrHJU3vk6vjCExmElbotNr wXZtHYreT5LlQQQxe295HVD eO4SqLPKkn1N5uzOgAtTmVN VspOW1lrG4HCCbXX4pckrar 8brGHreQChgNSJydpP7kzO6 TDXonTIdF3RjqH6fDFQnYK3 bimgwd7gaDTA0CSidIMNzLB P0LyWsDQMcu4Yziuo6WkMjs 7AezJHkFVzoL29sy469BJPg skMrY9hhiDLloegqbOLyibt jXZakhuM9IQGkNNniagbrPN ClRGcxL2psYvCnCMMxhHfpS Vlwn8SxXVIhRLKsKoCkaTCe UXTfMxg2OTNxrQBwEMBiVeA iW1didjvbFtTKMKZdf6bmO3 fppQTBqTHxN8YzPWahudNcX BgyWSlwNvFtYVYzHZ44CEL5 HXDcnz03 CPT Code(s) (test code k8hmeQIrOMJilCR1QqDfPJR = 3357) hl4nmu9ZoyRPofMFgSEjqnL FjboRypy83bHR9zG92RC9yG ARgMlH7OAVpgzX8Vpm4IXFd HHOnwKItH831p3qgl0miziE zcFH5bSptCEZcakrdAbU3GY aoZURlcecmFAd2GJkxSBWot DH4TZNspNOxF6TcWJGtHB7s rpp3XGC5RXeiYGSdQwD6RFA jpOPxDLAdePeiOHojy978SM H6ZtSiMLJfazLovLikkI0wF bRfPWC6XIQnRPglLQvnRDVK D8nxGKH4 CLINICAL HISTORY (test i0rwyTXkCGNczSV3GaRqRHT code = 3356) ec2kfa0KliRFssXPuQHhgaR AqhcVuyk57lEX4gS56YZ5cP TOgYgD4NPLfroD5Vvl3CSNm TCNawOLrB221s5ogy8uhwfB awYQ3cOakJEGfhnihEdE1LF pgZJRsxnieSDm7WUfgDBCse GX0YBRjfQYbX4DrILBnJA3g osl0WFT4UMmrHYLoYeQ6XXT vrWHdUSMszIwvSMkez219EE R0ErVpXXJqmpPueXnikZ4cS rTqSCCPmgJyY5OyEHc4iMLf cGFyfQ== SPECIMEN SOURCE (test q6psuZHiMBMsdOV1CjPnOFL code = 3377) ea2mka3ZamCEbbAXfRElveU BwdzDide50xGL1nX30OS6wV CEdXhJ7YQFvdrS7Buo8TXEf LWKrxYUbA931v4xme9djgiD jsCY9bWlcBHYfdeuhCcW2JD bhUXMdogxnCCl5KYuhWZPqu EV1NNQkgRZgR1WtCBJuWH8q nxy3CAY6GAwvMZBeJrD5EVG fcZQlOUAywSjpWGdau278GN J7FrMkIJSjqaSaoQsylW2iU nMyMCBNaXRyYWwgdmFsdmVc cGFyfQ== GROSS DESCRIPTION v5aalOGtWHIzcJQqWtXcYNY (test code = 3366) kYBDbr9ejGBEarKHlZaDfAe NcZnRuYmpcdWMxXGRlZmYwe 8ekn263xVVlj9uoIRGhCsN9 oPYmERLlzJAbY946JPYaEIl vu0jfe6XnLSTsbFGzg4Q0GF LUffkvuZn4aOpeQ10lo9X7L hxxE1frLXRnFJPtH6TyVR4g BBRbIzv4HSI6QGI4HJXsNXT qO5QrON4uOEIbpIEvQVn1y6 gkqDuaJOSwZTK0f6lxIGoiy gNwIA4mhu3udSm9d8dyyzHa KKQbGGByjKUULGHxQ9SdtWa iVk5hlMc7nUojTumrFSG9Id w4VB8cjk92emb7eKroHWIip mzjSlK9FYirBTDxxiwmAZx4 MFxtYXJnbDcyMFxtYXJncjc yMFxtYXJndDcyMFxtYXJnYj bqRVzzUHOkEMY9EKtdi641Y DH5VFyjx4xwj8kvaBXqBfl3 RUHzGbPxYrsdLKumi4Alf2i eOEChoo0lQAR3bDKysAhei2 E4fXQoISBihMRnvmXlRFGbM rM0ESheML1dnd15DKWtYPU9 hg2rgKNbcKlmgzBubESrYQc fF7TwKBEmz193AGFdN4ZmZG Mah1E5gzPlJoExUJLrsVC5t hQ4UUYvWOx0oTQjnwX4fkBb eKOoV7zgoJ14RfOokYMhG9J fvP74AkLrlLAyU4HtyB75Fo VceEIvG7QwhH95MxTqhSDlV XLnaXEsJo4rjCBimSTqu9Qs oXNvQXzvC11bf668PGEezeH yS3ykvKNffhtgtCXspaniPM mjzhB4BGAxPAFpVSxbJPYcQ GZzMjBcbGFuZzEwMzNcaGlj lTfePVmoUjTdIFLiOEnvI7l cZjBcZnMyMCBBLiAgUmVjZW q5SCDaqT7qPq8unZPlgZ5an RRmQZgoBEF4qYHnVCDfZXOm EYWqTH38M1BdqM1fk2WjPHV vd58jLE7kYEDcaGDoVJeanf FsdmUgbWFzcyIgaXMgYSAxL nImG79waG6gyHSfG5SrFVX3 IDAuMyBjbSBpbiBkaWFtZXR bndE8BO4isNnjryY6cSDgkO MoJSmhtATvACgwQKI1Ol0th NUcRDSkmfQ3w6GlXFuvEXXj b7OcmVApZKAqGxnwMDOipJJ hPUIczyWzjWbjqC5jVvCyYt MyNFxwbGFpblxmMVxmczIwX RsmphwdIXPmHQfbJ2dzRvUj MGUxsCwdCCtfj2QeMJCgFEO oIeMwDJUaNQBbm4aqGY83XQ xwbGFpblxmMFxmczIwXGxhb pcxELDhGDidA2dsOcKuGQMj aRkwZSity4LkYZVyEBJtFpR ccGFyfQ== MICROSCOPIC b9zaeSBxGSZslZN2ClXlYOR DESCRIPTION (test code md0opp7HyzITsjYFtNEqvnT = 3371) IlogDphj49jQU5vX46PU6qX JLzHlK3SDPhcpX6Ail3FSAf PIQeoOWpD376l8aiu3uafuH kiFO2xFbiTHDmiafwXeY2MW yaAWApwigcISl2QBtlIZRoz LA1AGFnqNSaP5SuNIFtDK4h wkz3SLL6JUmtJINgDaS3PWD snUAzCEKozYxnRUbnb387VZ N9ZzMmHBVmlzSljUnkdR6pV iJnLSKBDRPhb0GfDTSgPWUh cn0= SPECIAL STUDIES (test a4rfnAYnJZXleWO0UxGgSTY code = 3376) rk5lzo5MqzPIxoSUsTXdcwI EgptSfxk35lOM5aN85XL1sB DKuTiE7MCIqvfE2Mqy5LIUc RWZnwHUaJ023WYMnQUYoeSt cqjt8eJ14LKSomK6uuUXyVA scgyPhEEurswLttbRjDps4C PE9gBwwXFPwtxehQrO4CAru ZQHczqofIWw1WXouWSMvcSB 3ZAIquFAsE0SjKCYaWA6hja i7MGA5IDmsRHDeUeI3YDLic KTsSSCbrPzwVZywv312JSV0 SiDsDXRopxImfDjagF1vAzL cZnMyMlxjZjEgVGhlIGludG CaiKWjkIC5nY0aPJ0cJRMnv MQyO3OnBKBsotSfwUJgSMD4 oYSfmGEhJE8jXMzuaPMhy9r tx5KlB4iycHmpzNR9OK7hYR NdPJNoTHrnd3KqiF9kZewmC DIxB5SaUQJBK4ILJZJsBJLR Ao8ICnNNMqBgRhNNWd7wMTo NUywgQUZCXHBhclxwYXJkXG SwIHYVb055mc4kZDPftLZig hRUoEMblI6cARguFWboDUhq vCOkHMdxw2uzFPNaf3h7aRI eTWPtegPpj1puCKfsldCsCK AznGNuyEKoNSQtz18nNRvyd EzanXjhSSCvs7YevVhsf9Eg YxDsEYkrk0DvT71yvTOhlCX ueSisTOHlclKnLMTva59ka0 zoSEGyGmC8dMBesZK2vSOme NYoe9OjqDblLMOgo5inSLGs vn6uicflmAGdo9WkzR1ucax mRPqlxZPgwjRaOGHvd6v7eX VcJEEnDSKiFEqqoKg6ZOMhx 813fl9nyzZ8mHLsRRA6BIrd YWJsZSBhcmUgZXZhbHVhdGV hMJBxbwCqYHXuoiDAkD29nz 0pyTJ6w1MtUW1rx4XixPL9A WNobmljYWwgdGVzdGluZyB3 JJIrhPJgPx2rkKPkQFP9HTI tsJnsiwHGxP8hURPeOGa7EQ DjGnEqTugaltFBGNAqQ4WsK LQtzpAtvyvlBOA3zD8na8m2 HLnePu0dIMCszpgyx1fdabX ctMEky8LjFNNfxcQja1LmTI XfnwUjaNLgPXGbptEzod7dz vLuRXVdWJNeL0OosyeyzGgo vnS8QSRtFPLyhJCueTxlDDJ rVIz1LKvxqiIkz7IhHuCdvh JjqJYidzPzHO0sTQLsqPOmv dDbSYV0XMPxZELZXlSlZVSb n9MkQW7qOUGjaQkaIBSjcB8 co2FoYYFhf92rCYGzZPYHHR EgaGFzIGRldGVybWluZWQgd DdgoSEvhCVlQBCiJMAiJD0w OGVmzeUvgSRkj8PcqYAsdkH ys2AcsjOeTAQeTWD7QwCTwD OxoDWnwJArvqT6x8EsYPRim jRxcYpebKNsqBYztGFkn4Rc dj5tRIDbb8utwXxcCM4gjRX iZSByZWdhcmRlZCBhcyBpbn Eqm0DqS2E6hQ0zVBhqu8AnC a4uBTWsw5RjufGwBvDKiDln ZQhxVw3wOOTweahueBNuO8T ydGlmaWVkIHVuZGVyIHRoZS SUrZugcCSphGFTYFSwsjC2x 1W9LFmmrJBtykYkIN64ARMw XS2xaHLpfMVhb5XqJCp6NII fD6iHUE95HWayIRPhxTMnuS cmiLAgSZRhPHEdxgAsze7dv ZrsvDOou70bwLP1aSB8VFRh xB9uZ3OkBTkkRp5yQNCdhpo ehCTnxDxcWx7wxRPvqL== Gross assessment was [facility] performed at ([facility], code = 2777) Department of Pathology, [address] [place] [address] 277[address], Technical component [facility] was performed at ([facility], code = 2778) Department of Pathology, [address] [place] [address], Professional component [facility] was performed at ([facility], code = 7337) Department of Pathology, [address] [place] [address], [facility] [id number] 15:29:08 Test Item Value Reference Range Interpretation Comments Case Report (test code Surgical Pathology = 104) Report Case: [id number] Authorizing Provider: Logan Russo MD Collected: 06/18/2021 11:41 AM Ordering Location: [facility] Received: 06/19/2021 03:44 PM PERIOPERATIVE SERVICES Pathologist: Tom Paige MD Specimen: Mass, MITRAL VALVE MASS- for MICROBIOLOGY then pls send to Pathology DIAGNOSIS (test code = [id number] 3220) uZzEwMzNcZnRuYmpcdWMxIH tccnRmMVxlcGljOTYwMVxhb lUaZACayHKxT6WihyyxEXht FO2hXE7cwIzkdPYbyFHjJFS bDhUvg1dew353uBNct4krKM WVvbrrbIn4aNmoA14ju0P2R twdA73weWQiZYF8MZCpUOYe sUZaMCVjDRT7DFUqkYGjR3i xPRBoPF7rvrnuPUazLPlgDB OlxQG4SISjwPAlO4UfUVSjR TgdGDPlsyu0VoUaMx1vwIHt eTcyMFxwYXJkXHBsYWluXGZ tWuYvRI4zZZQTKfHtVI7NYA JBTCBWQUxWRSwgREVCUklER C0OYnSoDI9RAVQNIHRZLthy cGFyIEZJQlJJTiwgQUNVVEU vES7ABTSWLTLBF4TJOAHGG7 ZNC7POIWGCFaScJ4JPJ7pOY QMJYJaSBw5zmZNmCMESJREW ERhtR5ULDC1JKQTPEpIDOgJ SL1JDO6MBWS8WA8PJNJCSQc MRLV5WYA0PGDDHFNNTOwELR HMBBeUGI1yYZ5ifFTyjYDPw E95XByWVIWKCF15nH8kRZNX UZKMYZ1REV5zYH4cWDMmaV7 FHPZfPLoHGRqRGGKXFCK6HL iTYXV2fQGKapi70JPI4TvMu a9H1RRC9MDFwVFPyg2njDKX mbGFuZzEwMzNcZnRuYmpcdW MjWVQdVmFxd5olw716eILrg 0siHGAaIpT3lPMfHMWnkINu B174ACAnVEgzp2tgi8JmHNC soZSls7C8BVXRfvkoaKc4pH ptF24vl3R5YpsyQ5daSKSmK ELmG8DqKI8jJFKeZpn6SIB1 MPZ6HFUgDWAiW8KlRK9iLFR hsBHxZAe3u3wtxKmrFFLyKX U6u9ixVDyxzcQxEJ0dli9im De7m4nhnhQuRONcQVRwcXPA UKKjL1QadVadSm2raSg4bAm dOgvxEYH6Kra8WC5sfy37vh l3tBmaEGVxfszgTzM2MXziU VUvxwltGZh0RUhwEHVhjYY4 AYSigJIyJ0HpHVXzBZ3otxa 3MBL3KSfrLRGhSjV1ULPuzR FdQDLdzOiwRBlsy288UTW8N pEeVK9aS6Vft1W4aJ8mvYSx FTFxsGIoDyQrFHVjgb3leQO rTPtbz3DhIET3tiD1pRSkcF StGYNwCfW3TGmcQJ2slz13H MXrMLX8iu6uxSBmkLjxpgZq vQLkQJeaG1YaNPPox514ARP iB2ArGATck3T6jlYfGrAbMR AwkMA6qeX1VQRwCS3lekwwa 4dsUNuqRPwvOKBpidX8tiS3 WCBqtQUwO8IxlX8jSOCvJL9 uotpdx2wdQZB2CYyrWXKsLN D8AoPzWWMjv0Jeqah5LzFok 6XzcVTlTEyyZ60bt327DFHb yjDaS0dmeSCpnnfyaURwxns jISlvkqH8QNKmDYuxurkgDA QtTRskR8gxZnPkSKXvmJstE Otou8RzETWsZPGlZiQliLYk GKDcMly5PQUyrPWwEIFxJmD iM3iyrrpcKeABTXAld0apP1 jajRMPlOLoW2XlOJaoylPmR OtdEIzhAbNrUHCdHN70QQE2 LCWfrg27 CPT Code(s) (test code r2taiVKiXGFhnGP2VnOaKVS = 3357) za8wrm8FzbUGnmABnFUhbfP LzrqTqsg40tEX3dQ17ES2oO BEbLcV4FSKapxH4Doz9TXYn IWBoxRUhA261w6omi2scmsL gwCS8aXueZXOcwfhiPkN9MF gcNIAevojbECa2YVhtOGAnf YL0YERwfCXvO7AwNDCeKL4u qmm1DCZ1SXpzBOZxAcY0PGQ jsZHfGAQavJssOKeju913FW E5RiFjIGUyppFzwVaefD7hH jIaBHZ8TMVyXBclGDayYIQJ E2tsHAQ9 CLINICAL HISTORY (test a9anxKUqGTCniLW0VjWzWXN code = 3356) pi2yqf3XhbQDctHLdVVgxiQ VdqoNdzz29wMB2yE37GB1dW MMjYuE5AYOwehQ0Huk8FEFy BSAerHShB798h0qpz4zqibI mgYT5tWltIBMrvthyNdG5FM lrXFVcsxmkSHo3AXhlOCYru IR6ZOCdmZBpB0VpACTcIC9p kfn2VKF9VIliRZWgJlC5DFK vcTZxSKMrnAgrUFsyn653MT Q6AiLyXJOkugNzvSvhxP3eI sWhVEUIzpFpK8TuXOb9jDFz cGFyfQ== SPECIMEN SOURCE (test e8xfeBZcENXhoNI4LcTsRCI code = 3377) kx4jom8ImmRVsvYCuVWyosF WeviSkwf54aZQ8mB39BQ0fX QAbVyB3ORKgweG1Ebs7ETJo XETjlIDtC754e5ota3hpwzN cyMA1pZmjPLJtouxiWlL6JA fiQAGkkfvtAWe1ZAhnMALgg NQ6JQXljIJzN6QlASArJG2s yuo4FCP1EZmyKTLgRsA8DOR hdVSmRXTxzZchZHilk026EW N9EePwFMCmnqFsoVndoJ0xP nMyMCBNaXRyYWwgdmFsdmVc cGFyfQ== GROSS DESCRIPTION g7cliEUyJAKwzDScDbZsVLN (test code = 3366) yFDJoa7bcAYBowIFmYxLuQy NcZnRuYmpcdWMxXGRlZmYwe 6cub912aMIsq9zfMTGwRgA9 qIUbESQrmJQrH809APXwJSy te4pdy8XgFCNfdLFam4N4MK MKkdpxqKv6rYcyJ82vz0W2L hmdE3gmSUMcALYpN8OgFX4c XBKoVis6SND8CRD8UASbFYA uW8AtSP1rRMKjiAOzNSd7o9 gjePqxUCViBGJ7m4bzKDdpn aGsMY6kqs1awGd1q1libzGe BLZiZOOcfEUUSFDsS1ThyJa rPg9xhAt7eKldVivuHSP2Up e9XF8ywx11qpj9xKevCUFjt wntMpA8ILgmHSMexufrYOy5 MFxtYXJnbDcyMFxtYXJncjc yMFxtYXJndDcyMFxtYXJnYj gxVBpoMRUsYNH7WNsoz407J KA1JXjbn8zho5ezsDDrYdd7 VXGkWpGaRfzjCYzfb9Qsz5r fLAPjjx4iKDW1rADaeLlxv3 T6uCAuXOPpqWRzebTkSEMtH yQ9FNrxOO9wpo87BEDwUUU4 dz3uqJYxdWcwxkNdfSQzVHn hH0AmCQNrx071PUBmM7MfUB Jmc9P1zuGaMqPuLSXpcKH7n nP4SEGnEQu8oPNjhmL9mwRi yEUeZ3cfcD18AwUvgXWlB6C euM45RpUcoXZuD5BtsG05Vs JnaZMwT3WbtF74YdLtyDTbD SWogLHgXt2dtWDtfGOhl2Gv eTSzTImpR46mg566ALThscJ qC4xjiERxuglfjAHpkkowVQ tmsmZ8NZFbATSeARnoEQHrC GZzMjBcbGFuZzEwMzNcaGlj kLryMSqtDgHqMVLiEUovP1p cZjBcZnMyMCBBLiAgUmVjZW o9FRLjbD9pJy9fhSOimM8az ZGiKXxdPUL9vPKoRSKaJWQe KLGoYC68C0JuvE4yd9GsUIX fp40gAN1hMCRzvGFuUHbtwm FsdmUgbWFzcyIgaXMgYSAxL mMtI36psN1suCZhX6NmEPO2 IDAuMyBjbSBpbiBkaWFtZXR fypJ1PQ7vkHakrcP1jKJnxM QwIBbzwZRhJFqqAHY9Dn3ad QQpGMUnmpA3f1VlOWumASYm h4MfwNXuRZNnNdzaPSFfyCC lWWGgppMecYrwfF5cIaLkNg MyNFxwbGFpblxmMVxmczIwX CbgeyaqPVQuODpxK7fnAuPz JKKgnLsdHVjjo2RqRJXuDIK wRsMmKJVxYOMct9bkUK61XB xwbGFpblxmMFxmczIwXGxhb gvdWKNwEXohK9heOeMhIRLz rQszUQevn7DcULUhGZMhVdZ ccGFyfQ== MICROSCOPIC k1iptQXmFEUuxAP0SeKlLCF DESCRIPTION (test code jx7gst5ZvsJNwaNPqQTaowB = 3371) TtcqDqbp09uVQ8eH04HE3lA SUjPfF8MHQetjN0Zln5UHQx PSBipQNoR639e4dja4tjoaJ jmGD7nJgoLFApusreGiL7QI imPFEiouomRXf5XNtaGOWle AO1EBTbfIHqL3AsEKUkHK6f ypd0AAD6GIfjOIAlDuR2QUX jcHReCCQrbVtxDOcyr230QM K8QmTqKIZtwqPbuBgnaB7cF oHoGBAOCFXoa3TcREGoSDQa cn0= SPECIAL STUDIES (test j0aafEQsBOEmqQN0UoYdQIS code = 3376) ah2rnq9UmnCGnmQKaNEsegK CliiTqhu41iSV2aC60ZI2gM KRnAjT0JWNjomK0Nve7DNFs VDVhgCPnA443OIYyWSDykMr ifbs0eP95TNRyvA2tvRFpOM ybwjObVDekiaJjcjNbBtq7X PI3uTftYENanogxBoJ9RQpk KGZmbpgcVPw4TPhmLQXjmSA 5JVHrsADzG1QmIOZqLA2nmw o4DRQ0EDzfASWwQbV2PMFgq YKpSBHvwYpyZRtir786IKC6 MdDcRKAjlsPuoWvswN4tQlP cZnMyMlxjZjEgVGhlIGludG CnsELpvTI7qW4rXZ2lKKQfq HDeM3OxNMMvtvExuPByKUV2 kHXfeWFfFI9gWDfvdSXoi0w yc6NlI5mcmWqkcPD2RJ5yRG BfCDInSPjdv7GmsG0eRookR DYcS6DqPKJPZ2KAUWPrCAGF Sr7PVjMSXrLjDrFNMj6uFDw NUywgQUZCXHBhclxwYXJkXG GiSHKIn628hi6oCAQxfVMjl uOQlAMmiJ9hPYymPIziEYos uZThLThvx9dpUTUsy4p8aZF wXEDppuZqi9bfHIajupMjDD IrjXDgeANwYFSrl93vHHwjq UxnwYmaNYIha3EpvOllz9Ht EeGpYNfcc3EhZ05tuHKepBD yzKqyFSVprdPsFGXhe08bj1 caUPDxFyJ2fVRfqGS3dLIxd ISny3AyvKglKDHfx6cjMKKs wp9sxnqudTQpp9TafR7ozff lQIegfXKykhNpDKHsc4v8eB MqNZYnYDAsWYncaVy4WUBgg 891dy2yqiW2oJFaWGP2MDgu YWJsZSBhcmUgZXZhbHVhdGV mRTUloxEoSIDsmcHBlY96pp 7sbQQ8t3XnYB2ec8PimTX0G WNobmljYWwgdGVzdGluZyB3 HQClpKDbEx2zcOLsWNQ4FCN eeQhnrcRCvT6yFUKkUDm3PJ RcRxFjYpnzhxBKZVSwI4AoL QIngeYuiwgzNJC0eB1bx5j4 JAjiXf0fAYCkshlyq9yaojQ jqJChz0IqPHHpqoFeh3LeZO XsfyXruHPcLKRsldRevn1vk iOvXOWgLYXlU6IwawtxxAyz uwX5CVQzPBFjeOZcuCspNWO mKVf1QSqyqwUri9OvEwSgmc MwyJXnyuBuNW4lXIOivOUxl nEvAQZ2CQFoPWLRZwQjRWAl t9QrZH8eUJFdlRztVZMxdH5 zn2YeTYRxx18hXAEcLNXLNU EgaGFzIGRldGVybWluZWQgd MftaUTjcUXcFPUiSEGpEL4x AJYmrmLieAGnl6LnbAMjtaQ dd3XzisNaFSDmEKD6NdQMhN GyiUMnhQFcjyX7y2KlWMXzz aTlbCgbyOPvmEApvUClr4Ae xm1lOQQzt2fkmMwxOK1zcIO iZSByZWdhcmRlZCBhcyBpbn Jdb0SiD4S6uA6cAFizg7VvX w3jNCVij8BbquEmGhGFqJdc XSgjEr5wFQFrokyjyZKkE8X ydGlmaWVkIHVuZGVyIHRoZS BYtTqslQAceXKIEKArhbW9a 4T7ENzdhRJfcwZwJZ72JUXk JM1bbAWraDZvi9RdHMi9WPW yX0yCLU07TOovXPQyiNDpnI nadDGcRLRgRWNkwiRkam8ei ZokbIZld36ggWY7vFM8YJSt pN3xG9ZbMSphXn5dHDTwqbc ztKXwkMmxZw9kxKWuzV== Gross assessment was [facility] performed at ([facility], code = 2777) Department of Pathology, [address] [place] [phone], Technical component [facility]'s was performed at ([facility], code = 2778) Department of Pathology, [address] [place] [address], Professional component [facility]'s was performed at ([facility], code = 2779) Department of Pathology, [address], [place] [address], [facility] [id number] 12:37:44 Test Item Value Reference Range Interpretation Comments POC-GLUCOSE METER 98 mg/dL 70-110 : TESTED A T [facility] 6720 (BEAKER) (test code = [facility], 1538) [address]: Farm Operator/Techni kelle ID = [id number] for Kathleen sta (contract), [facility] POCT-GLUCOSE [id number] 08:40:16 Test Item Value Reference Range Interpretation Comments POC-GLUCOSE METER 120 mg/dL 70-110 H : TESTED A T [facility] 6720 (BEAKER) (test code = [facility], 1538) 71959: Farm Operator/Techni kelle ID = [id number] for Aditya brewer (contract), [facility] BASIC METABOLIC [id number] 04:46:57 Test Item Value Reference Range Interpretation [...] S NOT APPLICABLE FOR DIALYSIS PATIEN TS. Farm Operator ID - HIEN MRAD, CHEST, 1 VIEW, NON [id number] 04:07:00Reason for exam:->post-opShould this be performed at the bedside?->Yes [facility] : 1955 Sex: FFINAL REPORT RAD, CHEST, 1 VIEW, NON DEPT INDICATION: post-op COMPARISON: Prior day's exam FINDINGS: Portable frontal view of the chest. IMPRESSION: Support Lines: Stable. Lungs and pleura: No interval consolidation or sizable effusion. No pneumothorax. Heart and mediastinum: Stable contours. Additional findings: None. Signed: Andrew Cary Verified Date/Time: 06/24/2021 04:07:26 [id number] 03:54:16 Test Item Value Reference Range Interpretation Comments PHOSPHORUS (BEAKER) (test code = 4.3 mg/dL 2.3-4.7 604) Farm Operator ID - HIEN [id number] 03:54:15 Test Item Value Reference Range Interpretation Comments MAGNESIUM (BEAKER) (test code = 2.4 mg/dL 1.6-2.6 627) Farm Operator ID - HIEN [id number] 03:40:54 Test Item Value Reference Range Interpretation Comments PARTIAL THROMBOPLASTIN TIME 40.8 seconds 22.5-36.0 H (BEAKER) (test code = 760) PROTHROMBIN TIME/[id number] 03:39:49 Test Item Value Reference Range Interpretation Comments PROTIME (BEAKER) 13.1 seconds 11.9-14.2 (test code = 759) INR (BEAKER) (test 1.01 See_Comment [Automat ed message] code = 370) The system [employer] generated this result transmitted ref erence range: [...] WBC 0-0 (test code = 413) POCT-GLUCOSE [id number] 21:07:58 Test Item Value Reference Range Interpretation Comments POC-GLUCOSE METER 143 mg/dL 70-110 H : TESTED A T [facility] 6720 (BEAKER) (test code = [facility] [address], 1538) 85991: Farm Operator/Techni kelle ID = [id number] for Sheryl Bergeron POCT-GLUCOSE [id number] 16:23:05 Test Item Value Reference Range Interpretation Comments POC-GLUCOSE METER 126 mg/dL 70-110 H : TESTED A T [facility] 6720 (BEAKER) (test code = YUDY [place] [facility], 1538) 334[address]: Farm Operator/Techni kelle ID = [id number] for OSMANY VOGEL BASIC METABOLIC [id number] 13:28:45 Test Item Value Reference Range Interpretation [...] S NOT APPLICABLE FOR DIALYSIS PATIEN TS. Farm Operator ID - HIEN MPOCT-GLUCOSE [id number] 11:56:58 Test Item Value Reference Range Interpretation Comments POC-GLUCOSE METER 122 mg/dL 70-110 H : TESTED A T [facility] 6720 (BEAKER) (test code = YUDY [place] [facility], 1538) 33795: Farm Operator/Techni kelle ID = [id number] for OSMANY VOGEL 2D Echo W/Doppler(CW/PW/Color)2021-06-23 08:20:29Ejection FractionSLEH ECHO HEARTLAB [facility] W/Doppler(CW/PW/Color)2021-06-23 08:20:29Ejection FractionSLEH ECHO HEARTLAB MKCKESSON [facility] W/Doppler(CW/PW/Color) 2021-06-23 08:20:29Ejection FractionSLEH ECHO HEARTLAB [facility]LECHADDK[facility] Echo W/Doppler(CW/PW/Color)2021-06-23 08:20:29Ejection FractionSLEH ECHO HEARTLAB [facility]ADDK[facility] Echo W/Doppler(CW/PW/Color)2021-06-23 08:20:29Ejection FractionSLEH ECHO HEARTLAB [facility]ADDK[facility] Echo W/Doppler(CW/PW/Color) 2021-06-23 08:20:29Ejection FractionSLEH ECHO HEARTLAB [facility]aint [facility] Echo W/Doppler(CW/PW/Color)2021-06-23 08:20:29Ejection FractionSLEH ECHO HEARTLAB [facility] Echo W/Doppler(CW/PW/Color)2021-06-23 08:20:29Ejection FractionSLEH ECHO HEARTLAB GUILLEPRIYANKA [facility] Echo W/Doppler(CW/PW/Color) 2021-06-23 08:20:29Ejection FractionSLEH ECHO HEARTLAB GUILLEPRIYANKA [facility] Echo W/Doppler(CW/PW/Color)2021-06-23 08:20:29Ejection FractionSLEH ECHO HEARTLAB GUILLEPRIYANKA [facility] Echo W/Doppler(CW/PW/Color)2021-06-23 08:20:29Ejection FractionSLEH ECHO HEARTLAB MKALIDA [facility] Echo W/Doppler(CW/PW/Color) 2021-06-23 08:20:29Ejection FractionSLEH ECHO HEARTLAB [facility]2D Echo W/Doppler(CW/PW/Color)2021-06-23 08:20:29Ejection FractionSLEH ECHO HEARTLAB [facility]2D Echo W/Doppler(CW/PW/Color)2021-06-23 08:20:29Ejection FractionSLEH ECHO HEARTLAB GUILLEPRIYANKA [facility] CenterPO[facility]SE [id number] 07:43:14 Test Item Value Reference Range Interpretation Comments POC-GLUCOSE METER 111 mg/dL 70-110 H : TESTED A T [facility] (BEAKER) (test code = [place], 1538) [id number]: Farm Operator/Techni kelle ID = [id number] for OSMANY VOGEL BASIC METABOLIC [id number] 05:48:55 Test Item Value Reference Range Interpretation [...] S NOT APPLICABLE FOR DIALYSIS PATIEN TS. Farm Operator ID - HIEN [id number] 05:28:52 Test Item Value Reference Range Interpretation Comments PHOSPHORUS (BEAKER) (test code = 3.7 mg/dL 2.3-4.7 604) Farm Operator ID - HIEN [id number] 05:28:51 Test Item Value Reference Range Interpretation Comments MAGNESIUM (BEAKER) (test code = 2.2 mg/dL 1.6-2.6 627) Farm Operator ID - HIEN MRAD, CHEST, 1 VIEW, NON [id number] 05:08:00Reason for exam:->post-opShould this be performed at the bedside?->Yes [facility] : 1955 Sex: FFINAL REPORT RAD, CHEST, 1 VIEW, NON DEPT INDICATION: post-op COMPARISON: Prior day's exam FINDINGS: Portable frontal view of the chest. IMPRESSION: Support Lines: Stable. Lungs and pleura: There is improved aeration of both lungs. No new airspace consolidation. No pneumothorax. Heart and mediastinum: Stable contours. Additional findings: None. Signed: Andrew aCryepwade VerifiedDate/Time: 06/23/2021 05:08:22 [id number] 03:01:03 Test Item Value Reference Range Interpretation Comments PARTIAL THROMBOPLASTIN TIME 35.7 seconds 22.5-36.0 (BEAKER) (test code = 760) PROTHROMBIN [id number] 03:00:01 Test Item Value Reference Range Interpretation Comments PROTIME (BEAKER) 13.3 seconds 11.9-14.2 (test code = 759) INR (BEAKER) (test 1.03 See_Comment [Automat ed message] code = 370) The system [employer] generated this result transmitted ref erence range: [...] WBC 0-0 (test code = 413) POCT-GLUCOSE [id number] 22:23:22 Test Item Value Reference Range Interpretation Comments POC-GLUCOSE METER 146 mg/dL 70-110 H : TESTED A T [facility] 6720 (BEAKER) (test code = [facility], 153) [id number]: Farm Operator/Techni kelle ID = [id number] for CA MS, SENORA POCT-GLUCOSE [id number] 18:28:19 Test Item Value Reference Range Interpretation Comments POC-GLUCOSE METER 101 mg/dL 70-110 : TESTED A T [facility] 6720 (BEAKER) (test code = [facility], 153) [id number]: Farm Operator/Techni kelle ID = [id number] for Tacos rene (contract), Amb er BASIC METABOLIC [id number] 14:57:30 Test Item Value Reference Range Interpretation [...] S NOT APPLICABLE FOR DIALYSIS PATIEN TS. Farm Operator ID - AAHAMIDPOCT-GLUCOSE [id number] 12:37:53 Test Item Value Reference Range Interpretation Comments POC-GLUCOSE METER 69 mg/dL 70-110 L : TESTED A T [facility] (BEAKER) (test code = [place], 1538) [address]: Farm Operator/Techni kelle ID = [id number] for Frances knutson (contract), Amb er Oxygen saturation, [id number] 10:49:59 Test Item Value Reference Range Interpretation Comments O2 Saturation (Measured) (test code = 79.8 % 88659-0) [facility], [id number] 10:49:59 Test Item Value Reference Range Interpretation Comments O2 Saturation (Measured) (test code = 79.8 % 57865-9) [facility] CenterO[facility], [id number] 10:49:59 Test Item Value Reference Range Interpretation Comments O2 Saturation (Measured) (test code = 79.8 % 88684-0) [facility], [id number] 10:49:59 Test Item Value Reference Range Interpretation Comments O2 Saturation (Measured) (test code = 79.8 % 40638-4) [facility], [id number] 10:49:59 Test Item Value Reference Range Interpretation Comments O2 Saturation (Measured) (test code = 79.8 % 33021-4) [facility], [id number] 10:49:59 Test Item Value Reference Range Interpretation Comments O2 Saturation (Measured) (test code = 79.8 % 46826-5) [facility], [id number] 10:49:59 Test Item Value Reference Range Interpretation Comments O2 Saturation (Measured) (test code = 79.8 % 77556-3) [facility], [id number] 10:49:59 Test Item Value Reference Range Interpretation Comments O2 Saturation (Measured) (test code = 79.8 % 78735-9) [facility] CenterO[facility], [id number] 10:49:59 Test Item Value Reference Range Interpretation Comments O2 Saturation (Measured) (test code = 79.8 % 44846-6) [facility] Center[facility], [id number] 10:49:59 Test Item Value Reference Range Interpretation Comments O2 Saturation (Measured) (test code = 79.8 % 09544-8) [facility] CenterO[facility], [id number] 10:49:59 Test Item Value Reference Range Interpretation Comments O2 Saturation (Measured) (test code = 79.8 % 75409-6) [facility] CenterO[facility], [id number] 10:49:59 Test Item Value Reference Range Interpretation Comments O2 Saturation (Measured) (test code = 79.8 % 32906-6) [facility] CenterO[facility], [id number] 10:49:59 Test Item Value Reference Range Interpretation Comments O2 Saturation (Measured) (test code = 79.8 % 30379-6) [facility] CenterO[facility], [id number] 10:49:59 Test Item Value Reference Range Interpretation Comments O2 Saturation (Measured) (test code = 79.8 % 74179-0) [facility] CenterOXYGEN SATURATION, [id number] 10:49:59 Test Item Value Reference Range Interpretation Comments O2 SATURATION (MEASURED) (BEAKER) 79.8 % (test code = 1455) BASIC METABOLIC [id number] 07:15:45 Test Item Value Reference Range Interpretation [...] S NOT APPLICABLE FOR DIALYSIS PATIEN TS. Farm Operator ID - DBRAD, CHEST, 1 VIEW, NON [id number] 03:19:00Reason for exam:->post-opShould this be performed at the bedside?->Yes [facility] [place]Y : 1955 Sex: FFINAL REPORT CLINICAL INDICATION: post-op Comparison: 06/21/2021 The cardiomediastinal contours are stable. The lung volumes remain low. Central pulmonary vascular congestion and bilateral parenchymal opacities are unchanged. There is no pneumothorax. Support lines are stable. Signed:Braxton Quinteroeport Verified Date/Time: 06/22/2021 03:19:08 BASIC METABOLIC [id number] 02:00:09 Test Item Value Reference Range Interpretation [...] S NOT APPLICABLE FOR DIALYSIS PATIEN TS. Farm Operator ID - [id number] 01:57:06 Test Item Value Reference Range Interpretation Comments MAGNESIUM (BEAKER) 2.5 mg/dL 1.6-2.6 Specimen slightly (test code = 627) hemolyzed Farm Operator ID - [id number] 01:57:06 Test Item Value Reference Range Interpretation Comments PHOSPHORUS (BEAKER) 5.0 mg/dL 2.3-4.7 H Specimen slightly (test code = 604) hemolyzed Farm Operator ID - [id number] 01:54:46 Test Item Value Reference Range Interpretation Comments PARTIAL THROMBOPLASTIN TIME 37.8 seconds 22.5-36.0 H (BEAKER) (test code = 760) PROTHROMBIN TIME/[id number] 01:53:47 Test Item Value Reference Range Interpretation Comments PROTIME (BEAKER) 16.4 seconds 11.9-14.2 H (test code = 759) INR (BEAKER) (test 1.34 See_Comment [Automat ed message] code = 370) The system [employer] generated this result transmitted ref erence range: [...] WBC 0-0 (test code = 413) POCT-GLUCOSE [id number] 21:22:08 Test Item Value Reference Range Interpretation Comments POC-GLUCOSE METER 73 mg/dL 70-110 : TESTED A T [facility] (BEAKER) (test code = [place], 1538) [address]: Farm Operator/Techni kelle ID = [id number] for Rodríguez Rojas POCT-GLUCOSE [id number] 19:10:01 Test Item Value Reference Range Interpretation Comments POC-GLUCOSE METER 83 mg/dL 70-110 : TESTED A T [facility] 6720 (BEAKER) (test code = [facility], 1538) [address]: Farm Operator/Techni kelle ID = [id number] for HATTIE SALAZAR BASIC METABOLIC [id number] 14:08:36 Test Item Value Reference Range Interpretation [...] S NOT APPLICABLE FOR DIALYSIS PATIEN TS. Farm Operator ID - DBPOCT-GLUCOSE [id number] 13:42:11 Test Item Value Reference Range Interpretation Comments POC-GLUCOSE METER 72 mg/dL 70-110 : TESTED A T [facility] 6720 (BEAKER) (test code = [place], 1538) [address]: Farm Operator/Techni kelle ID = [id number] for Sun(contract )Katt Surgically obtained culture + gram [id number] 11:46:53 Test Item Value Reference Range Interpretation Comments Result (test code = 6463-4) No growth Gram Stain Result (test No organisms seen code = 1123) [facility] [id number] 11:46:53 Test Item Value Reference Range Interpretation Comments Result (test code = 6463-4) No growth Gram Stain Result (test No organisms seen code = 1123) [facility] + gram [id number] 11:46:53 Test Item Value Reference Range Interpretation Comments Result (test code = 6463-4) No growth Gram Stain Result (test No organisms seen code = 1123) [facility] + gram [id number] 11:46:53 Test Item Value Reference Range Interpretation Comments Result (test code = 6463-4) No growth Gram Stain Result (test No organisms seen code = 1123) [facility] + gram kgzpm9953-68-28 11:46:53 Test Item Value Reference Range Interpretation Comments Result (test code = 6463-4) No growth Gram Stain Result (test No organisms seen code = 1123) [facility] + [facility] [id number] 11:46:53 Test Item Value Reference Range Interpretation Comments Result (test code = 6463-4) No growth Gram Stain Result (test No organisms seen code = 1123) [facility] + gram [id number] 11:46:53 Test Item Value Reference Range Interpretation Comments Result (test code = 6463-4) No growth Gram Stain Result (test No organisms seen code = 1123) [facility] + gram [id number] 11:46:53 Test Item Value Reference Range Interpretation Comments Result (test code = 6463-4) No growth Gram Stain Result (test No organisms seen code = 1123) [facility] gram [id number] 11:46:53 Test Item Value Reference Range Interpretation Comments Result (test code = 6463-4) No growth Gram Stain Result (test No organisms seen code = 1123) [facility] + gram [id number] 11:46:53 Test Item Value Reference Range Interpretation Comments Result (test code = 6463-4) No growth Gram Stain Result (test No organisms seen code = 1123) [facility] + gram [id number] 11:46:53 Test Item Value Reference Range Interpretation Comments Result (test code = 6463-4) No growth Gram Stain Result (test No organisms seen code = 1123) [facility] + gram [id number] 11:46:53 Test Item Value Reference Range Interpretation Comments Result (test code = 6463-4) No growth Gram Stain Result (test No organisms seen code = 1123) [facility] + gram [id number] 11:46:53 Test Item Value Reference Range Interpretation Comments Result (test code = 6463-4) No growth Gram Stain Result (test No organisms seen code = 1123) [facility] + gram [id number] 11:46:53 Test Item Value Reference Range Interpretation Comments Result (test code = 6463-4) No growth Gram Stain Result (test No organisms seen code = 1123) [facility] + GRAM [id number] 11:46:53 Test Item Value Reference Range Interpretation Comments CULTURE (BEAKER) (test code No growth = 1095) GRAM STAIN RESULT (BEAKER) 1+ WBCs (test code = 1123) GRAM STAIN RESULT (BEAKER) No organisms seen (test code = 05313) RAD, CHEST, 1 VIEW, NON [id number] 06:05:00Reason for exam:->post-opShould this be performed at the bedside?->Yes [facility] : 1955 [...] MDReport Verified Date/Time: 06/21/2021 06:05:24 BASIC METABOLIC [id number] 03:54:19 Test Item Value Reference Range Interpretation [...] S NOT APPLICABLE FOR DIALYSIS PATIEN TS. Farm Operator ID - [id number] 03:49:06 Test Item Value Reference Range Interpretation Comments PHOSPHORUS (BEAKER) (test code = 4.5 mg/dL 2.3-4.7 604) Farm Operator ID - [id number] 03:49:05 Test Item Value Reference Range Interpretation Comments MAGNESIUM (BEAKER) (test code = 2.4 mg/dL 1.6-2.6 627) Farm Operator ID - DBCBC (HEMOGRAM ONLY)2021-06-21 03:45:10 Test [...] /100 WBC 0-0 (test code = 413) [id number] 03:45:00 Test Item Value Reference Range Interpretation Comments PARTIAL THROMBOPLASTIN TIME 35.5 seconds 22.5-36.0 (BEAKER) (test code = 760) PROTHROMBIN TIME/[id number] 03:44:22 Test Item Value Reference Range Interpretation Comments PROTIME (BEAKER) 14.1 seconds 11.9-14.2 (test code = 759) INR (BEAKER) (test 1.11 See_Comment [Automat ed message] code = 370) The system [employer] generated this result transmitted ref erence range: <=5.90. The reference range was not used to int erpret this result as normal/abnormal . RECOMMENDED COUMADIN/WARFARIN INR THERAPY RANGESSTANDARD DOSE: 2.0 - 3.0 Includes: PROPHYLAXIS for venous thrombosis, systemic embolization; TREATMENT for venous thrombosis and/or pulmonary embolus.HIGH RISK: Target INR is 2.5-3.5 for patients with mechanical heart valves.BASIC METABOLIC [id number] 18:24:15 Test Item Value Reference Range Interpretation [...] S NOT APPLICABLE FOR DIALYSIS PATIEN TS. Farm Operator ID - PIAYA LPOCT-GLUCOSE [id number] 13:44:48 Test Item Value Reference Range Interpretation Comments POC-GLUCOSE METER 165 mg/dL 70-110 H : TESTED A T [facility] (BEAKER) (test code = YUDY [address] [place], 1538) [address]: Farm Operator/Techni kelle ID = [id number] for KOTA ARIAS SARS-CoV2/RT-PCR (Asymptomatic ONLY)2021-06-20 11:58:08 Test Item Value Reference Range Interpretation Comments SARS-COV2/RT-PCR Negative Not Detected, (test code = Negative, See 46177-4) external report for linked test SARS-COV-2 [facility] ALIC[facility] PERFORMING LAB (test code = 61711-6) BRANDI (test code = Negative result for [...] of the Act. Fact Sheet for Healthcare Providers:https://www.[employer].com/sites/default/f radha/product/documents/F act_Sheet_HC_Providers_L gwg_EXGZ-IdF-6.pdf Fact Sheet for Healthcare Patients:https://www.[employer]/sites/default/fi les/product/documents/Fa ct_Sheet_Patients_Lyra_S ARS-CoV-2.pdf Performing Laboratory:[facility], [place] [address] [place], [place] [address]ARS-CoV2/RT-PCR (Asymptomatic ONLY)2021-06-20 11:58:08 Test Item Value Reference Range Interpretation Comments SARS-COV2/RT-PCR Negative Not Detected, (test code = Negative, See 65984-0) external report for linked test SARS-COV-2 [facility] PERFORMING LAB (test code = 40785-2) BRANDI (test code = Negative result for [...] of the Act. Fact Sheet for Healthcare Providers:https://www.Tiip[employer].com/sites/default/f radha/product/documents/F act_Sheet_HC_Providers_L oqc_IGUH-GiF-5.pdf Fact Sheet for Healthcare Patients:https://www.[employer]/sites/default/fi les/product/documents/Fa ct_Sheet_Patients_Lyra_S ARS-CoV-2.pdf Performing Laboratory:[facility] [place] [address] [facility] ([facility])2021-06-20 11:58:08 Test Item Value Reference Range Interpretation Comments SARS-COV2/RT-PCR (test Negative Not Detected, Negative, code = 3350711) See external report for linked test SARS-COV-[address] [facility] LAICIA (test code = 4246962) Negative result for this test determines that [...] of the Act.Fact Sheet for Healthcare Prov iders:https://www.[employer]/sites/default/files/product/documents/Fact_Sheet_HC _Kdsklmppv_Bdlj_QKCX-FnX-8.pdfFact Sheet for Healthcare Patients:https://www.[employer]/sites/default/files/product/docume nts/Onii_Awpcx_Ivnhwwpk_Mwpl_HOWB-UzI-1.pdfPerforming Laboratory:[facility], [place] [address]YKUL-KXUZQLO METER 2021-06-20 06:30:37 Test Item Value Reference Range Interpretation Comments POC-GLUCOSE METER 145 mg/dL 70-110 H : TESTED A T [facility] (AKASH) (test code [facility], = 1538) [address]: Farm Operator/Techni kelle ID = [id number] for Tash wiseman (contract), [place] RAD, CHEST, 1 VIEW, NON [id number] 06:25:00Reason for exam:->post-opShould this be performed at the bedside?->Yes [facility] : 1955 Sex: FFINAL REPORT RAD, CHEST, 1 VIEW, NON DEPT INDICATION: post-op COMPARISON: Prior day's exam FINDINGS: Portable frontal view of the chest. IMPRESSION: Support Lines: Interval extubation. A drainage catheter overlies the upper abdomen and lower hemidiaphragm in the center. [place] tipoverlies the pulmonary outflow tract. Pacer device and sternotomy wires are unchanged. Lungs and pleura: Bilateral effusions and adjacent compressive atelectasis are unchanged No significant pneumothorax. Heart and mediastinum: Normal contours. Additional findings: None. Signed: Bayron Cosme MDReport Verified Date/Time: 06/20/2021 06:25:51 Electronically signed by: BAYRON COSME MD on 0 06/20/2021 06:25 [id number] 02:12:20 Test Item Value Reference Range Interpretation Comments PARTIAL THROMBOPLASTIN TIME 35.8 seconds 22.5-36.0 (BEAKER) (test code = 760) PROTHROMBIN TIME/[id number] 02:11:37 Test Item Value Reference Range Interpretation Comments PROTIME (BEAKER) 15.4 seconds 11.9-14.2 H (test code = 759) INR (BEAKER) (test 1.24 See_Comment [Automat ed message] code = 370) The system [employer]elOne generated this result transmitted ref erence range: <=5.90. The reference range was not used to int erpret this result as normal/abnormal . RECOMMENDED COUMADIN/WARFARIN INR THERAPY RANGESSTANDARD DOSE: 2.0 - 3.0 Includes: PROPHYLAXIS for venous thrombosis, systemic embolization; TREATMENT for venous thrombosis and/or pulmonary embolus.HIGH RISK: Target INR is 2.5-3.5 for patients with mechanical heart valves.BASIC METABOLIC [id number] 02:08:36 Test Item Value Reference Range Interpretation [...] S NOT APPLICABLE FOR DIALYSIS PATIEN TS. Farm Operator ID - SVLEGSQRTKUQ6556-44-63 01:57:56 Test Item Value Reference Range Interpretation Comments PHOSPHORUS (BEAKER) (test code = 4.1 mg/dL 2.3-4.7 604) Farm Operator ID - [id number] 01:57:55 Test Item Value Reference Range Interpretation Comments MAGNESIUM (BEAKER) (test code = 2.2 mg/dL 1.6-2.6 627) Farm Operator ID - DBCBC (HEMOGRAM ONLY)2021-06-20 01:36:09 Test [...] 0-0 (test code = 413) Blood gas, [id number] 01:27:29 Test Item Value Reference Range Interpretation [...] 28 Lab Interpretation Abnormal (test code = 64737-2) [facility] [id number] 01:27:29 Test Item Value Reference Range Interpretation [...] 28 Lab Interpretation Abnormal (test code = 08584-4) [facility], [id number] 01:27:29 Test Item Value Reference Range Interpretation [...] 28 Lab Interpretation Abnormal (test code = 09265-2) [facility], [id number] 01:27:29 Test Item Value Reference Range Interpretation [...] = 2708-6) HCO3, Arterial (test 22 mmol/L - code = 1960-4) Base Excess, Arterial -2.4 mmol/L -2.0-3.0 L (test code = 1925-7) Patient Temperature 35.5 (test code = 8310-5) FIO2 (test code = 1819) 28 Lab Interpretation Abnormal (test code = 39093-3) [facility] gas, [id number] 01:27:29 Test Item Value Reference Range Interpretation [...] 28 Lab Interpretation Abnormal (test code = 76637-1) [facility], [id number] 01:27:29 Test Item Value Reference Range Interpretation [...] 28 Lab Interpretation Abnormal (test code = 58446-6) [facility] gas, bvzssjik4103-47-95 01:27:29 Test Item Value Reference Range Interpretation [...] 28 Lab Interpretation Abnormal (test code = 36812-1) [facility] gas, ipsdagpi3980-23-20 01:27:29 Test Item Value Reference Range Interpretation [...] 28 Lab Interpretation Abnormal (test code = 90086-3) [facility] gas, sbahbfga2039-37-85 01:27:29 Test Item Value Reference Range Interpretation [...] 28 Lab Interpretation Abnormal (test code = 80954-9) [facility], ozqdoigi0218-75-19 01:27:29 Test Item Value Reference Range Interpretation [...] 28 Lab Interpretation Abnormal (test code = 12307-4) [facility] gas, [id number] 01:27:29 Test Item Value Reference Range Interpretation [...] 28 Lab Interpretation Abnormal (test code = 34185-6) [facility], [id number] 01:27:29 Test Item Value Reference Range Interpretation [...] 28 Lab Interpretation Abnormal (test code = 35180-4) [facility], [id number] 01:27:29 Test Item Value Reference Range Interpretation [...] 28 Lab Interpretation Abnormal (test code = 85414-1) [facility], [id number] 01:27:29 Test Item Value Reference Range Interpretation [...] 28 Lab Interpretation Abnormal (test code = 47338-4) [facility] CenterBLOOD GAS, [id number] 01:27:29 Test Item Value Reference Range Interpretation [...] (BEAKER) (test code = 1819) 28.0 Calcium, Mbqalbb6709-04-98 01:26:07 Test Item Value Reference Range Interpretation Comments Calcium, Ion (test code = 1993-06) 1.17 mmol/L 1.12-1.27 pH, Blood (test code = 90323-6) 7.39 [facility] CenterCal[facility], [id number] 01:26:07 Test Item Value Reference Range Interpretation Comments Calcium, Ion (test code = 1993-06) 1.17 mmol/L 1.12-1.27 pH, Blood (test code = 77860-2) 7.39 [facility] Center[facility], Vxpuhlt8742-38-29 01:26:07 Test Item Value Reference Range Interpretation Comments Calcium, Ion (test code = 1993-06) 1.17 mmol/L 1.12-1.27 pH, Blood (test code = 47265-1) 7.39 [facility] CenterCal[facility], [id number] 01:26:07 Test Item Value Reference Range Interpretation Comments Calcium, Ion (test code = 1993-06) 1.17 mmol/L 1.12-1.27 pH, Blood (test code = 98311-1) 7.39 [facility] Center[facility], Dzhjfte3174-75-10 01:26:07 Test Item Value Reference Range Interpretation Comments Calcium, Ion (test code = 1993-06) 1.17 mmol/L 1.12-1.27 pH, Blood (test code = 95057-9) 7.39 [facility], Afpymhf6548-97-08 01:26:07 Test Item Value Reference Range Interpretation Comments Calcium, Ion (test code = 1993-06) 1.17 mmol/L 1.12-1.27 pH, Blood (test code = 60679-6) 7.39 [facility] CenterCal[facility], Ecubiyz4806-81-54 01:26:07 Test Item Value Reference Range Interpretation Comments Calcium, Ion (test code = 1993-06) 1.17 mmol/L 1.12-1.27 pH, Blood (test code = 98613-9) 7.39 [facility] CenterCal[facility], Zclzrbj6668-04-56 01:26:07 Test Item Value Reference Range Interpretation Comments Calcium, Ion (test code = 1993-06) 1.17 mmol/L 1.12-1.27 pH, Blood (test code = 48529-4) 7.39 [facility] CenterCal[facility], [id number] 01:26:07 Test Item Value Reference Range Interpretation Comments Calcium, Ion (test code = 1993-06) 1.17 mmol/L 1.12-1.27 pH, Blood (test code = 52918-8) 7.39 [facility] CenterCal[facility], Xoiiyuy2942-20-53 01:26:07 Test Item Value Reference Range Interpretation Comments Calcium, Ion (test code = 1993-06) 1.17 mmol/L 1.12-1.27 pH, Blood (test code = 39774-5) 7.39 [facility] CenterCal[facility], Nodwjyo2848-46-31 01:26:07 Test Item Value Reference Range Interpretation Comments Calcium, Ion (test code = 1993-06) 1.17 mmol/L 1.12-1.27 pH, Blood (test code = 87063-7) 7.39 [facility] CenterCal[facility], [id number] 01:26:07 Test Item Value Reference Range Interpretation Comments Calcium, Ion (test code = 1993-06) 1.17 mmol/L 1.12-1.27 pH, Blood (test code = 13248-1) 7.39 [facility] CenterCal[facility], Njaagkq5295-70-98 01:26:07 Test Item Value Reference Range Interpretation Comments Calcium, Ion (test code = 1993-06) 1.17 mmol/L 1.12-1.27 pH, Blood (test code = 97697-1) 7.39 [facility] CenterCal[facility], Nyfvefs1422-58-06 01:26:07 Test Item Value Reference Range Interpretation Comments Calcium, Ion (test code = 1994-3) 1.17 mmol/L 1.12-1.27 pH, Blood (test code = 45101-8) 7.39 [facility] CenterCALCIUM, [id number] 01:26:07 Test Item Value Reference Range Interpretation Comments CALCIUM IONIZED (BEAKER) (test 1.17 mmol/L 1.12-1.27 code = 698) PH, BLOOD (BEAKER) (test code = 7.39 1810) Prepare [id number] 23:55:00 Test Item Value Reference Range Interpretation Comments Unit ABO (test code = 5325120) A Pos UNIT NUMBER (test code = [id number] 934-0) Status (test code = 8856584) [place]_TIMEINCHART Blood Bank Product (test code PLATELETS = 2263) PRODUCT CODE (test code = W5545A27 933-2) [facility] CenterPrep[facility] [id number] 23:55:00 Test Item Value Reference Range Interpretation Comments Unit ABO (test code = 9003467) A Pos UNIT NUMBER (test code = [id number] 934-0) Status (test code = 3645828) [place]_TIMEINCHART Blood Bank Product (test code PLATELETS = 2263) PRODUCT CODE (test code = J7181M78 933-2) [facility] [id number] 23:55:00 Test Item Value Reference Range Interpretation Comments Unit ABO (test code = 3035246) A Pos UNIT NUMBER (test code = [id number] 934-0) Status (test code = 4772382) TX_TIMEINCHART Blood Bank Product (test code PLATELETS = 2263) PRODUCT CODE (test code = Z5613D46 933-2) [facility] [id number] 23:55:00 Test Item Value Reference Range Interpretation Comments Unit ABO (test code = 5154827) A Pos UNIT NUMBER (test code = [id number] 934-0) Status (test code = 1577956) [place]_TIMEINCHART Blood Bank Product (test code PLATELETS = 2263) PRODUCT CODE (test code = X4803F20 933-2) [facility] [id number] 23:55:00 Test Item Value Reference Range Interpretation Comments Unit ABO (test code = 3616969) A Pos UNIT NUMBER (test code = [id number] 934-0) Status (test code = 5771899) TX_TIMEINCHART Blood Bank Product (test code PLATELETS = 2263) PRODUCT CODE (test code = C6145R72 933-2) [facility] [id number] 23:55:00 Test Item Value Reference Range Interpretation Comments Unit ABO (test code = 3967087) A Pos UNIT NUMBER (test code = [id number] 934-0) Status (test code = 1918606) [place]_TIMEINCHART Blood Bank Product (test code PLATELETS = 2263) PRODUCT CODE (test code = Z1841L17 933-2) [facility] [id number] 23:55:00 Test Item Value Reference Range Interpretation Comments Unit ABO (test code = 1145548) A Pos UNIT NUMBER (test code = [id number] 934-0) Status (test code = 0404393) TX_TIMEINCHART Blood Bank Product (test code PLATELETS = 2263) PRODUCT CODE (test code = J1782E14 933-2) [facility] [id number] 23:55:00 Test Item Value Reference Range Interpretation Comments Unit ABO (test code = 4351454) A Pos UNIT NUMBER (test code = [id number] 934-0) Status (test code = 9666967) TX_TIMEINCHART Blood Bank Product (test code PLATELETS = 2263) PRODUCT CODE (test code = Z9257O40 933-2) [facility] [id number] 23:55:00 Test Item Value Reference Range Interpretation Comments Unit ABO (test code = 7921010) A Pos UNIT NUMBER (test code = [id number] 934-0) Status (test code = 1339755) TX_TIMEINCHART Blood Bank Product (test code PLATELETS = 2263) PRODUCT CODE (test code = Z7068C43 933-2) [facility] [id number] 23:55:00 Test Item Value Reference Range Interpretation Comments Unit ABO (test code = 7319912) A Pos UNIT NUMBER (test code = [id number] 934-0) Status (test code = 4427737) TX_TIMEINCHART Blood Bank Product (test code PLATELETS = 2263) PRODUCT CODE (test code = F4857P84 933-2) [facility] [id number] 23:55:00 Test Item Value Reference Range Interpretation Comments Unit ABO (test code = 7084944) A Pos UNIT NUMBER (test code = [id number] 934-0) Status (test code = 1443413) TX_TIMEINCHART Blood Bank Product (test code PLATELETS = 2263) PRODUCT CODE (test code = T7090S87 933-2) [facility] [id number] 23:55:00 Test Item Value Reference Range Interpretation Comments Unit ABO (test code = 6941498) A Pos UNIT NUMBER (test code = [id number] 934-0) Status (test code = 2274459) [place]_TIMEINCHART Blood Bank Product (test code PLATELETS = 2263) PRODUCT CODE (test code = L2754W79 933-2) [facility] [id number] 23:55:00 Test Item Value Reference Range Interpretation Comments Unit ABO (test code = 9198068) A Pos UNIT NUMBER (test code = [id number] 934-0) Status (test code = 9690618) [place]_TIMEINCHART Blood Bank Product (test code PLATELETS = 2263) PRODUCT CODE (test code = X2607H57 933-2) [facility] [id number] 23:55:00 Test Item Value Reference Range Interpretation Comments Unit ABO (test code = 0590796) A Pos UNIT NUMBER (test code = [id number] 934-0) Status (test code = 0450262) [place]_TIMEINCHART Blood Bank Product (test code PLATELETS = 2263) PRODUCT CODE (test code = M8750W16 933-2) [facility] [id number] 23:54:00 Test Item Value Reference Range Interpretation Comments CROSSMATCH (test code = COMPATIBLE 2264) Unit ABO (test code = O Pos 9968386) UNIT NUMBER (test code = [id number] 934-0) Status (test code = RETURNED FROM ISSUE 15100613) Blood Bank Product (test RED BLOOD CELLS code = 2263) PRODUCT CODE (test code = N8258K31 933-2) [facility]2022-03-18 23:54:00 Test Item Value Reference Range Interpretation Comments CROSSMATCH (test code = COMPATIBLE 2264) Unit ABO (test code = O Pos 3275201) UNIT NUMBER (test code = [id number] 934-0) Status (test code = RETURNED FROM ISSUE 15100613) Blood Bank Product (test RED BLOOD CELLS code = 2263) PRODUCT CODE (test code = H5750C64 933-2) [facility]2022-03-18 23:54:00 Test Item Value Reference Range Interpretation Comments CROSSMATCH (test code = COMPATIBLE 2264) Unit ABO (test code = O Pos 3295393) UNIT NUMBER (test code = [id number] 934-0) Status (test code = RETURNED FROM ISSUE 15100613) Blood Bank Product (test RED BLOOD CELLS code = 2263) PRODUCT CODE (test code = U0060U67 933-2) [facility]2022-03-18 23:54:00 Test Item Value Reference Range Interpretation Comments CROSSMATCH (test code = COMPATIBLE 2264) Unit ABO (test code = O Pos 5324112) UNIT NUMBER (test code = [id number] 934-0) Status (test code = RETURNED FROM ISSUE 15100613) Blood Bank Product (test RED BLOOD CELLS code = 2263) PRODUCT CODE (test code = C1113N81 933-2) [facility]2022-03-18 23:54:00 Test Item Value Reference Range Interpretation Comments CROSSMATCH (test code = COMPATIBLE 2264) Unit ABO (test code = O Pos 2555615) UNIT NUMBER (test code = [id number] 934-0) Status (test code = RETURNED FROM ISSUE 15100613) Blood Bank Product (test RED BLOOD CELLS code = 2263) PRODUCT CODE (test code = P9005Z44 933-2) [facility] [id number] 23:54:00 Test Item Value Reference Range Interpretation Comments CROSSMATCH (test code = COMPATIBLE 2264) Unit ABO (test code = O Pos 3119738) UNIT NUMBER (test code = [id number] 934-0) Status (test code = RETURNED FROM ISSUE 15100613) Blood Bank Product (test RED BLOOD CELLS code = 2263) PRODUCT CODE (test code = K6760P77 933-2) [facility] [id number] 23:54:00 Test Item Value Reference Range Interpretation Comments CROSSMATCH (test code = COMPATIBLE 2264) Unit ABO (test code = O Pos 8360687) UNIT NUMBER (test code = [id number] 934-0) Status (test code = RETURNED FROM ISSUE 15100613) Blood Bank Product (test RED BLOOD CELLS code = 2263) PRODUCT CODE (test code = A9537O13 933-2) [facility] [id number] 23:54:00 Test Item Value Reference Range Interpretation Comments CROSSMATCH (test code = COMPATIBLE 2264) Unit ABO (test code = O Pos 5221847) UNIT NUMBER (test code = [id number] 934-0) Status (test code = RETURNED FROM ISSUE 15100613) Blood Bank Product (test RED BLOOD CELLS code = 2263) PRODUCT CODE (test code = Y1724R38 933-2) [facility] [id number] 23:54:00 Test Item Value Reference Range Interpretation Comments CROSSMATCH (test code = COMPATIBLE 2264) Unit ABO (test code = O Pos [id number]) UNIT NUMBER (test code = [id number] 934-0) Status (test code = RETURNED FROM ISSUE 15100613) Blood Bank Product (test RED BLOOD CELLS code = 2263) PRODUCT CODE (test code = [id number] 933-2) [facility] [id number] 23:54:00 Test Item Value Reference Range Interpretation Comments CROSSMATCH (test code = COMPATIBLE 2264) Unit ABO (test code = O Pos 3322110) UNIT NUMBER (test code = [id number] 934-0) Status (test code = RETURNED FROM ISSUE 15100613) Blood Bank Product (test RED BLOOD CELLS code = 2263) PRODUCT CODE (test code = [id number] 933-2) [facility] [id number] 23:54:00 Test Item Value Reference Range Interpretation Comments CROSSMATCH (test code = COMPATIBLE 2264) Unit ABO (test code = O Pos 8608126) UNIT NUMBER (test code = [id number] 934-0) Status (test code = RETURNED FROM ISSUE 15100613) Blood Bank Product (test RED BLOOD CELLS code = 2263) PRODUCT CODE (test code = [id number] 933-2) [facility] [id number] 23:54:00 Test Item Value Reference Range Interpretation Comments CROSSMATCH (test code = COMPATIBLE 2264) Unit ABO (test code = O Pos 5030204) UNIT NUMBER (test code = [id number] 934-0) Status (test code = RETURNED FROM ISSUE 15100613) Blood Bank Product (test RED BLOOD CELLS code = 2263) PRODUCT CODE (test code = [id number] 933-2) [facility] [id number] 23:54:00 Test Item Value Reference Range Interpretation Comments CROSSMATCH (test code = COMPATIBLE 2264) Unit ABO (test code = O Pos 2448364) UNIT NUMBER (test code = [id number] 934-0) Status (test code = RETURNED FROM ISSUE 15100613) Blood Bank Product (test RED BLOOD CELLS code = 2263) PRODUCT CODE (test code = [id number] 933-2) [facility] [id number] 23:54:00 Test Item Value Reference Range Interpretation Comments CROSSMATCH (test code = COMPATIBLE 2264) Unit ABO (test code = O Pos 4170064) UNIT NUMBER (test code = [id number] 934-0) Status (test code = RETURNED FROM ISSUE 15100613) Blood Bank Product (test RED BLOOD CELLS code = 2263) PRODUCT CODE (test code = [id number] 933-2) [facility] [id number] 22:04:29 Test Item Value Reference Range Interpretation [...] S NOT APPLICABLE FOR DIALYSIS PATIEN TS. Farm Operator ID - [id number] 22:03:41 Test Item Value Reference Range Interpretation Comments PHOSPHORUS (BEAKER) (test code = 4.3 mg/dL 2.3-4.7 604) Farm Operator ID - [id number] 22:03:40 Test Item Value Reference Range Interpretation Comments MAGNESIUM (BEAKER) (test code = 2.2 mg/dL 1.6-2.6 627) Farm Operator ID - DBpH, flomigxy2974-31-34 21:40:14 Test Item Value Reference Range Interpretation Comments pH, Arterial (test code = 2744-1) 7.37 7.35-7.45 Lab Interpretation (test code = Normal 97811-4) [facility], [id number] 21:40:14 Test Item Value Reference Range Interpretation Comments pH, Arterial (test code = 2744-1) 7.37 7.35-7.45 Lab Interpretation (test code = Normal 79712-7) [facility] [id number] 21:40:14 Test Item Value Reference Range Interpretation Comments pH, Arterial (test code = 2744-1) 7.37 7.35-7.45 Lab Interpretation (test code = Normal 67749-0) [facility] [id number] 21:40:14 Test Item Value Reference Range Interpretation Comments pH, Arterial (test code = 2744-1) 7.37 7.35-7.45 Lab Interpretation (test code = Normal 69370-8) [facility]2022-03-18 21:40:14 Test Item Value Reference Range Interpretation Comments pH, Arterial (test code = 2744-1) 7.37 7.35-7.45 Lab Interpretation (test code = Normal 29635-1) [facility]2022-03-18 21:40:14 Test Item Value Reference Range Interpretation Comments pH, Arterial (test code = 2744-1) 7.37 7.35-7.45 Lab Interpretation (test code = Normal 58329-4) [facility] [id number] 21:40:14 Test Item Value Reference Range Interpretation Comments pH, Arterial (test code = 2744-1) 7.37 7.35-7.45 Lab Interpretation (test code = Normal 42168-1) [facility]2022-03-18 21:40:14 Test Item Value Reference Range Interpretation Comments pH, Arterial (test code = 2744-1) 7.37 7.35-7.45 Lab Interpretation (test code = Normal 04891-0) [facility]2022-03-18 21:40:14 Test Item Value Reference Range Interpretation Comments pH, Arterial (test code = 2744-1) 7.37 7.35-7.45 Lab Interpretation (test code = Normal 56050-3) [facility] [id number] 21:40:14 Test Item Value Reference Range Interpretation Comments pH, Arterial (test code = 2744-1) 7.37 7.35-7.45 Lab Interpretation (test code = Normal 04509-5) [facility] [id number] 21:40:14 Test Item Value Reference Range Interpretation Comments pH, Arterial (test code = 2744-1) 7.37 7.35-7.45 Lab Interpretation (test code = Normal 88809-5) [facility], [id number] 21:40:14 Test Item Value Reference Range Interpretation Comments pH, Arterial (test code = 2744-1) 7.37 7.35-7.45 Lab Interpretation (test code = Normal 75664-1) [facility], [id number] 21:40:14 Test Item Value Reference Range Interpretation Comments pH, Arterial (test code = 2744-1) 7.37 7.35-7.45 Lab Interpretation (test code = Normal 34853-0) [facility], [id number] 21:40:14 Test Item Value Reference Range Interpretation Comments pH, Arterial (test code = 2744-1) 7.37 7.35-7.45 Lab Interpretation (test code = Normal 91191-2) [facility], [id number] 21:40:14 Test Item Value Reference Range Interpretation Comments PH ARTERIAL (BEAKER) (test code = 383) 7.37 7.35-7.45 POCT-GLUCOSE [id number] 18:07:04 Test Item Value Reference Range Interpretation Comments POC-GLUCOSE METER 208 mg/dL 70-110 H : TESTED A T [facility] 6720 (BEAKER) (test code = [place], 1538) [address]: Farm Operator/Techni kelle ID = [id number] for Mally olmedokameronChilo BLOOD GAS, [id number] 12:45:46 Test Item Value Reference Range Interpretation [...] (test code = 1819) 36.0 BLOOD GAS, [id number] 11:23:57 Test Item Value Reference Range Interpretation [...] FIO2 (BEAKER) (test code = 1819) 40.0 [id number] 09:37:11 Test Item Value Reference Range Interpretation Comments Scan Result (test code = See scanned report [id number]) BRANDI (test code = BRANDI) See scanned report [place] 23175022-03-18 09:37:11 Test Item Value Reference Range Interpretation Comments Scan Result (test code = See scanned report [id number]) BRANDI (test code = BRANDI) See scanned report [place] 23175022-03-18 09:37:11 Test Item Value Reference Range Interpretation Comments Scan Result (test code = See scanned report [id number]) BRANDI (test code = BRANDI) See scanned report [place] 23175022-03-18 09:37:11 Test Item Value Reference Range Interpretation Comments Scan Result (test code = See scanned report [id number]) BRANDI (test code = BRANDI) See scanned report [place] 23175022-03-18 09:37:11 Test Item Value Reference Range Interpretation Comments Scan Result (test code = See scanned report [id number]) BRANDI (test code = BRANDI) See scanned report [place] 23175022-03-18 09:37:11 Test Item Value Reference Range Interpretation Comments Scan Result (test code = See scanned report 0653449) BRANDI (test code = BRANDI) See scanned report [place] 23175022-03-18 09:37:11 Test Item Value Reference Range Interpretation Comments Scan Result (test code = See scanned report 6562072) BRANDI (test code = BRANDI) See scanned report [place] 23175022-03-18 09:37:11 Test Item Value Reference Range Interpretation Comments Scan Result (test code = See scanned report [id number]) BRANDI (test code = BRANDI) See scanned report [place] 23175022-03-18 09:37:11 Test Item Value Reference Range Interpretation Comments Scan Result (test code = See scanned report [id number]) BRANDI (test code = BRANDI) See scanned report [place] 23175022-03-18 09:37:11 Test Item Value Reference Range Interpretation Comments Scan Result (test code = See scanned report 3004915) BRANDI (test code = BRANDI) See scanned report [place] 23175022-03-18 09:37:11 Test Item Value Reference Range Interpretation Comments Scan Result (test code = See scanned report 3541086) BRANDI (test code = BRANDI) See scanned report [place] 23175022-03-18 09:37:11 Test Item Value Reference Range Interpretation Comments Scan Result (test code = See scanned report [id number]) BRANDI (test code = BRANDI) See scanned report [place] 23175022-03-18 09:37:11 Test Item Value Reference Range Interpretation Comments Scan Result (test code = See scanned report [id number]) BRANDI (test code = BRANDI) See scanned report [place] 751792-03-18 09:37:11 Test Item Value Reference Range Interpretation Comments Scan Result (test code = See scanned report [id number]) BRANDI (test code = BRANDI) See scanned report [facility] [id number] 09:37:11 Test Item Value Reference Range Interpretation Comments SCAN RESULT (test code = See scanned report [id number]) See scanned reportPOCT-GLUCOSE [id number] 08:52:16 Test Item Value Reference Range Interpretation Comments POC-GLUCOSE METER 165 mg/dL 70-110 H : TESTED A T [facility] 6720 (BEAKER) (test code = [place], 1538) [address]: Farm Operator/Techni kelle ID = [id number] for Chilo Mccarty RAD, CHEST, 1 VIEW, NON [id number] 04:10:00Reason for exam:->post-opShould this be performed at the bedside?->Yes [facility] 1955 Sex: FFINAL REPORT RAD, CHEST, 1 VIEW, NON DEPT INDICATION: post-op COMPARISON: Prior day's exam FINDINGS: Portable frontal view of the chest. IMPRESSION: Support Lines: Stable Lungs and pleura: Unchanged central venous congestion. No new consolidation or effusion. No pneumothorax. Heart and mediastinum: Stable contours. Additional findings: None. Signed: Andrew [facility] Verified Date/Time: 06/19/2021 04:10:04 BASIC METABOLIC [id number] 03:27:20 Test Item Value Reference Range Interpretation [...] S NOT APPLICABLE FOR DIALYSIS PATIEN TS. Farm Operator ID - RAKAN OEHNSMUYOR5090-94-94 03:26:39 Test Item Value Reference Range Interpretation Comments MAGNESIUM (BEAKER) (test code = 2.4 mg/dL 1.6-2.6 627) Farm Operator ID Bassam [place] [id number] 03:26:39 Test Item Value Reference Range Interpretation Comments PHOSPHORUS (BEAKER) (test code = 4.8 mg/dL 2.3-4.7 H 604) Farm Operator ID Bassam [place] [id number] 03:02:29 Test Item Value Reference Range Interpretation Comments PARTIAL THROMBOPLASTIN TIME 35.4 seconds 22.5-36.0 (BEAKER) (test code = 760) PROTHROMBIN TIME/[id number] 03:01:50 Test Item Value Reference Range Interpretation Comments PROTIME (BEAKER) 16.0 seconds 11.9-14.2 H (test code = 759) INR (BEAKER) (test 1.31 See_Comment [Automat ed message] code = 370) The system [employer] generated this result transmitted ref erence range: [...] 0-0 (test code = 413) OXYGEN SATURATION, [id number] 02:28:43 Test Item Value Reference Range Interpretation Comments O2 SATURATION (MEASURED) (BEAKER) 79.3 % (test code = 1455) BLOOD GAS, [id number] 02:25:53 Test Item Value Reference Range Interpretation [...] (BEAKER) (test code = 1819) 40.0 POCT-GLUCOSE [id number] 00:06:42 Test Item Value Reference Range Interpretation Comments POC-GLUCOSE METER 88 mg/dL 70-110 : TESTED A T [facility] 6720 (BEAKER) (test code = [facility], 1538) [address]: Farm Operator/Techni kelle ID = [id number] for JUGU ILON (V), ERICK POCT-GLUCOSE [id number] 23:14:53 Test Item Value Reference Range Interpretation Comments POC-GLUCOSE METER 91 mg/dL 70-110 : TESTED A T [facility] 6720 (BEAKER) (test code = [facility], 1538) [address]: Farm Operator/Techni kelle ID = [id number] for JUGU ILON (V), ERICK POCT-GLUCOSE [id number] 21:30:27 Test Item Value Reference Range Interpretation Comments POC-GLUCOSE METER 128 mg/dL 70-110 H : TESTED A T [facility] 6720 (BEAKER) (test code = [facility], 1538) [address]: Farm Operator/Techni kelle ID = [id number] for JU GUILON (V), ERICK POCT-GLUCOSE [id number] 19:05:18 Test Item Value Reference Range Interpretation Comments POC-GLUCOSE METER 165 mg/dL 70-110 H : TESTED A T [facility] 6720 (BEAKER) (test code = [facility], 1538) [address]: Farm Operator/Techni kelle ID = [id number] for DEIDRE BURRELL, JESMI BASIC METABOLIC [id number] 18:47:16 Test Item Value Reference Range Interpretation [...] S NOT APPLICABLE FOR DIALYSIS PATIEN TS. Farm Operator ID - HIEN [id number] 18:44:55 Test Item Value Reference Range Interpretation Comments MAGNESIUM (BEAKER) (test code = 2.5 mg/dL 1.6-2.6 627) Farm Operator ID - HIEN [id number] 18:44:55 Test Item Value Reference Range Interpretation Comments PHOSPHORUS (BEAKER) (test code = 4.7 mg/dL 2.3-4.7 604) Farm Operator ID - HIEN MBLOOD GAS, [id number] 18:43:01 Test Item Value Reference Range Interpretation [...] (test code = 1819) 60.0 OXYGEN SATURATION, [id number] 18:40:36 Test Item Value Reference Range Interpretation Comments O2 SATURATION (MEASURED) (BEAKER) 90.5 % (test code = 1455) Lactic Acid, [id number] 18:40:35 Test Item Value Reference Range Interpretation Comments Lactate, Art (test code = 2.1 mmol/L 0.5-2.2 2874) BRANDI (test code = BRANDI) Farm Operator ID - HIEN M Lab Interpretation (test Normal code = 01976-7) [facility], [id number] 18:40:35 Test Item Value Reference Range Interpretation Comments Lactate, Art (test code = 2.1 mmol/L 0.5-2.2 2874) BRANDI (test code = BRANDI) Farm Operator ID - HIEN M Lab Interpretation (test Normal code = 36238-7) [facility] CenterL[facility], [id number] 18:40:35 Test Item Value Reference Range Interpretation Comments Lactate, Art (test code = 2.1 mmol/L 0.5-2.2 2874) BRANDI (test code = BRANDI) Farm Operator ID - HIEN M Lab Interpretation (test Normal code = 30665-7) [facility] CenterL[facility], [id number] 18:40:35 Test Item Value Reference Range Interpretation Comments Lactate, Art (test code = 2.1 mmol/L 0.5-2.2 2874) BRANDI (test code = BRANDI) Farm Operator ID - HIEN Lab Interpretation (test Normal code = 98153-7) [facility], [id number] 18:40:35 Test Item Value Reference Range Interpretation Comments Lactate, Art (test code = 2.1 mmol/L 0.5-2.2 2874) BRANDI (test code = BRANDI) Farm Operator ID - HIEN Lab Interpretation (test Normal code = 30664-5) [facility] CenterL[facility], [id number] 18:40:35 Test Item Value Reference Range Interpretation Comments Lactate, Art (test code = 2.1 mmol/L 0.5-2.2 2874) BRANDI (test code = BRANDI) Farm Operator ID - HIEN M Lab Interpretation (test Normal code = 48768-0) [facility] CenterL[facility], [id number] 18:40:35 Test Item Value Reference Range Interpretation Comments Lactate, Art (test code = 2.1 mmol/L 0.5-2.2 2874) BRANDI (test code = BRANDI) Farm Operator ID - HIEN M Lab Interpretation (test Normal code = 25075-6) [facility] CenterL[facility], [id number] 18:40:35 Test Item Value Reference Range Interpretation Comments Lactate, Art (test code = 2.1 mmol/L 0.5-2.2 2874) BRANDI (test code = BRANDI) Farm Operator ID - HIEN M Lab Interpretation (test Normal code = 66887-5) [facility] CenterL[facility], [id number] 18:40:35 Test Item Value Reference Range Interpretation Comments Lactate, Art (test code = 2.1 mmol/L 0.5-2.2 2874) BRANDI (test code = BRANDI) Farm Operator ID - HIEN M Lab Interpretation (test Normal code = 91403-8) [facility], [id number] 18:40:35 Test Item Value Reference Range Interpretation Comments Lactate, Art (test code = 2.1 mmol/L 0.5-2.2 2874) BRANDI (test code = BRANDI) Farm Operator ID - HIEN M Lab Interpretation (test Normal code = 06374-8) [facility] CenterL[facility], [id number] 18:40:35 Test Item Value Reference Range Interpretation Comments Lactate, Art (test code = 2.1 mmol/L 0.5-2.2 2874) BRANDI (test code = BRANDI) Farm Operator ID - HIEN M Lab Interpretation (test Normal code = 84362-2) [facility] CenterL[facility], [id number] 18:40:35 Test Item Value Reference Range Interpretation Comments Lactate, Art (test code = 2.1 mmol/L 0.5-2.2 2874) BRANDI (test code = BRANDI) Farm Operator ID - HIEN M Lab Interpretation (test Normal code = 79499-6) [facility] CenterL[facility], [id number] 18:40:35 Test Item Value Reference Range Interpretation Comments Lactate, Art (test code = 2.1 mmol/L 0.5-2.2 2874) BRANDI (test code = BRANDI) Farm Operator ID - HIEN M Lab Interpretation (test Normal code = 72499-5) [facility] CenterL[facility], [id number] 18:40:35 Test Item Value Reference Range Interpretation Comments Lactate, Art (test code = 2.1 mmol/L 0.5-2.2 2874) BRANDI (test code = BRANDI) Farm Operator ID - HIEN M Lab Interpretation (test Normal code = 69963-4) [facility] CenterLACTIC ACID, [id number] 18:40:35 Test Item Value Reference Range Interpretation Comments LACTATE BLOOD ARTERIAL (2) 2.1 mmol/L 0.5-2.2 (BEAKER) (test code = 2874) Farm Operator ID - HIEN [id number] 18:38:33 Test Item Value Reference Range Interpretation Comments PARTIAL THROMBOPLASTIN TIME 37.2 seconds 22.5-36.0 H (BEAKER) (test code = 760) PROTHROMBIN [id number] 18:37:33 Test Item Value Reference Range Interpretation Comments PROTIME (BEAKER) 16.6 seconds 11.9-14.2 H (test code = 759) INR (BEAKER) (test 1.37 See_Comment [Automat ed message] code = 370) The system [employer] generated this result transmitted ref erence range: [...] 0-0 (test code = 413) HGB/HCT (H&H)-Stat [id number] 16:13:19 Test Item Value Reference Range Interpretation Comments Hemoglobin (test code = 10.6 See_Comment L [Au tomated message] 786-4) The system [employer] generated this result transmitted ref erence range: 12.0 - 1 5.0 GM/DL. The refe rence range was not u sed to interpret this result as normal/abnor mal. Hematocrit (test code = 31.0 % 36.0-45.0 L 4544-3) Lab Interpretation (test Abnormal code = 87270-3) [facility]Stat [id number] 16:13:19 Test Item Value Reference Range Interpretation Comments Hemoglobin (test code = 10.6 See_Comment L [Au tomated message] 786-4) The system [employer] generated this result transmitted ref erence range: 12.0 - 1 5.0 GM/DL. The refe rence range was not u sed to interpret this result as normal/abnor mal. Hematocrit (test code = 31.0 % 36.0-45.0 L 4544-3) Lab Interpretation (test Abnormal code = 23403-4) [facility] ([facility]Stat [id number] 16:13:19 Test Item Value Reference Range Interpretation Comments Hemoglobin (test code = 10.6 See_Comment L [Au tomated message] 786-4) The system [employer] generated this result transmitted ref erence range: 12.0 - 1 5.0 GM/DL. The refe rence range was not u sed to interpret this result as normal/abnor mal. Hematocrit (test code = 31.0 % 36.0-45.0 L 4544-3) Lab Interpretation (test Abnormal code = 66203-3) [facility] CenterH[facility] ([facility]H)-Stat [id number] 16:13:19 Test Item Value Reference Range Interpretation Comments Hemoglobin (test code = 10.6 See_Comment L [Au tomated message] 786-4) The system [employer] generated this result transmitted ref erence range: 12.0 - 1 5.0 GM/DL. The refe rence range was not u sed to interpret this result as normal/abnor mal. Hematocrit (test code = 31.0 % 36.0-45.0 L 4544-3) Lab Interpretation (test Abnormal code = 21330-8) [facility] CenterH[facility] ([facility]&H)-Stat [id number] 16:13:19 Test Item Value Reference Range Interpretation Comments Hemoglobin (test code = 10.6 See_Comment L [Au tomated message] 786-4) The system [employer] generated this result transmitted ref erence range: 12.0 - 1 5.0 GM/DL. The refe rence range was not u sed to interpret this result as normal/abnor mal. Hematocrit (test code = 31.0 % 36.0-45.0 L 4544-3) Lab Interpretation (test Abnormal code = 91494-7) [facility] CenterH[facility] ([facility]&H)-Stat [id number] 16:13:19 Test Item Value Reference Range Interpretation Comments Hemoglobin (test code = 10.6 See_Comment L [Au tomated message] 786-4) The system [employer] generated this result transmitted ref erence range: 12.0 - 1 5.0 GM/DL. The refe rence range was not u sed to interpret this result as normal/abnor mal. Hematocrit (test code = 31.0 % 36.0-45.0 L 4544-3) Lab Interpretation (test Abnormal code = 92408-1) [facility] CenterH[facility] ([facility]&H)-Stat [id number] 16:13:19 Test Item Value Reference Range Interpretation Comments Hemoglobin (test code = 10.6 See_Comment L [Au tomated message] 786-4) The system [employer] generated this result transmitted ref erence range: 12.0 - 1 5.0 GM/DL. The refe rence range was not u sed to interpret this result as normal/abnor mal. Hematocrit (test code = 31.0 % 36.0-45.0 L 4544-3) Lab Interpretation (test Abnormal code = 38336-0) [facility] CenterH[facility] ([facility]&H)-Stat [id number] 16:13:19 Test Item Value Reference Range Interpretation Comments Hemoglobin (test code = 10.6 See_Comment L [Au tomated message] 786-4) The system [employer] generated this result transmitted ref erence range: 12.0 - 1 5.0 GM/DL. The refe rence range was not u sed to interpret this result as normal/abnor mal. Hematocrit (test code = 31.0 % 36.0-45.0 L 4544-3) Lab Interpretation (test Abnormal code = 17286-8) [facility] CenterH[facility] ([facility]&H)-Stat [id number] 16:13:19 Test Item Value Reference Range Interpretation Comments Hemoglobin (test code = 10.6 See_Comment L [Au tomated message] 786-4) The system [employer] generated this result transmitted ref erence range: 12.0 - 1 5.0 GM/DL. The refe rence range was not u sed to interpret this result as normal/abnor mal. Hematocrit (test code = 31.0 % 36.0-45.0 L 4544-3) Lab Interpretation (test Abnormal code = 67792-0) [facility] ([facility]H)-Stat [id number] 16:13:19 Test Item Value Reference Range Interpretation Comments Hemoglobin (test code = 10.6 See_Comment L [Au tomated message] 786-4) The system [employer] generated this result transmitted ref erence range: 12.0 - 1 5.0 GM/DL. The refe rence range was not u sed to interpret this result as normal/abnor mal. Hematocrit (test code = 31.0 % 36.0-45.0 L 4544-3) Lab Interpretation (test Abnormal code = 68230-4) [facility] ([facility]H)-Stat [id number] 16:13:19 Test Item Value Reference Range Interpretation Comments Hemoglobin (test code = 10.6 See_Comment L [Au tomated message] 786-4) The system [employer] generated this result transmitted ref erence range: 12.0 - 1 5.0 GM/DL. The refe rence range was not u sed to interpret this result as normal/abnor mal. Hematocrit (test code = 31.0 % 36.0-45.0 L 4544-3) Lab Interpretation (test Abnormal code = 93667-2) [facility] ([facility]Stat [id number] 16:13:19 Test Item Value Reference Range Interpretation Comments Hemoglobin (test code = 10.6 See_Comment L [Au tomated message] 786-4) The system [employer] generated this result transmitted ref erence range: 12.0 - 1 5.0 GM/DL. The refe rence range was not u sed to interpret this result as normal/abnor mal. Hematocrit (test code = 31.0 % 36.0-45.0 L 4544-3) Lab Interpretation (test Abnormal code = 94574-2) [facility] ([facility]Stat [id number] 16:13:19 Test Item Value Reference Range Interpretation Comments Hemoglobin (test code = 10.6 See_Comment L [Au tomated message] 786-4) The system [employer] generated this result transmitted ref erence range: 12.0 - 1 5.0 GM/DL. The refe rence range was not u sed to interpret this result as normal/abnor mal. Hematocrit (test code = 31.0 % 36.0-45.0 L 4544-3) Lab Interpretation (test Abnormal code = 97687-9) [facility]Stat [id number] 16:13:19 Test Item Value Reference Range Interpretation Comments Hemoglobin (test code = 10.6 See_Comment L [Au tomated message] 786-4) The system [employer] generated this result transmitted ref erence range: 12.0 - 1 5.0 GM/DL. The refe rence range was not u sed to interpret this result as normal/abnor mal. Hematocrit (test code = 31.0 % 36.0-45.0 L 4544-3) Lab Interpretation (test Abnormal code = 66178-8) [facility] [id number] 16:13:19 Test Item Value Reference Range Interpretation Comments HEMOGLOBIN (BEAKER) (test code = 10.6 GM/DL 12.0-15.0 L 410) HEMATOCRIT (BEAKER) (test code = 31.0 % 36.0-45.0 L 411) Glucose-Stat [id number] 16:13:18 Test Item Value Reference Range Interpretation Comments Glucose (test code = 2345-7) 205 mg/dL 70-110 H Lab Interpretation (test code = Abnormal 77901-1) [facility] [id number] 16:13:18 Test Item Value Reference Range Interpretation Comments Sodium (test code = 2951-2) 134 meq/L 136-145 L Lab Interpretation (test code = Abnormal 48218-3) [facility] Ljf5008-14-30 16:13:18 Test Item Value Reference Range Interpretation Comments Glucose (test code = 2345-7) 205 mg/dL 70-110 H Lab Interpretation (test code = Abnormal 29096-7) [facility] [id number] 16:13:18 Test Item Value Reference Range Interpretation Comments Sodium (test code = 2951-2) 134 meq/L 136-145 L Lab Interpretation (test code = Abnormal 78487-1) [facility] Ueo4344-86-23 16:13:18 Test Item Value Reference Range Interpretation Comments Glucose (test code = 2345-7) 205 mg/dL 70-110 H Lab Interpretation (test code = Abnormal 42078-8) [facility] [id number] 16:13:18 Test Item Value Reference Range Interpretation Comments Sodium (test code = 2951-2) 134 meq/L 136-145 L Lab Interpretation (test code = Abnormal 69363-8) [facility] Lsf9567-36-40 16:13:18 Test Item Value Reference Range Interpretation Comments Glucose (test code = 2345-7) 205 mg/dL 70-110 H Lab Interpretation (test code = Abnormal 92017-6) [facility] [id number] 16:13:18 Test Item Value Reference Range Interpretation Comments Sodium (test code = 2951-2) 134 meq/L 136-145 L Lab Interpretation (test code = Abnormal 76327-8) [facility]Gl[facility] Qla3540-94-30 16:13:18 Test Item Value Reference Range Interpretation Comments Glucose (test code = 2345-7) 205 mg/dL 70-110 H Lab Interpretation (test code = Abnormal 07288-9) [facility] [id number] 16:13:18 Test Item Value Reference Range Interpretation Comments Sodium (test code = 2951-2) 134 meq/L 136-145 L Lab Interpretation (test code = Abnormal 30015-8) [facility] Mmj3656-98-73 16:13:18 Test Item Value Reference Range Interpretation Comments Glucose (test code = 2345-7) 205 mg/dL 70-110 H Lab Interpretation (test code = Abnormal 82678-0) [facility] Wyi3649-21-86 16:13:18 Test Item Value Reference Range Interpretation Comments Sodium (test code = 2951-2) 134 meq/L 136-145 L Lab Interpretation (test code = Abnormal 99700-7) [facility] Gsw4126-79-81 16:13:18 Test Item Value Reference Range Interpretation Comments Glucose (test code = 2345-7) 205 mg/dL 70-110 H Lab Interpretation (test code = Abnormal 78594-9) [facility] [id number] 16:13:18 Test Item Value Reference Range Interpretation Comments Sodium (test code = 2951-2) 134 meq/L 136-145 L Lab Interpretation (test code = Abnormal 04019-1) [facility]Gl[facility] [id number] 16:13:18 Test Item Value Reference Range Interpretation Comments Glucose (test code = 2345-7) 205 mg/dL 70-110 H Lab Interpretation (test code = Abnormal 44306-6) [facility] Die0452-13-13 16:13:18 Test Item Value Reference Range Interpretation Comments Sodium (test code = 2951-2) 134 meq/L 136-145 L Lab Interpretation (test code = Abnormal 24698-5) [facility]Gl[facility] [id number] 16:13:18 Test Item Value Reference Range Interpretation Comments Glucose (test code = 2345-7) 205 mg/dL 70-110 H Lab Interpretation (test code = Abnormal 42523-9) [facility] Tqk8216-21-74 16:13:18 Test Item Value Reference Range Interpretation Comments Sodium (test code = 2951-2) 134 meq/L 136-145 L Lab Interpretation (test code = Abnormal 71448-5) [facility] [id number] 16:13:18 Test Item Value Reference Range Interpretation Comments Glucose (test code = 2345-7) 205 mg/dL 70-110 H Lab Interpretation (test code = Abnormal 81411-2) [facility] Hot3557-77-23 16:13:18 Test Item Value Reference Range Interpretation Comments Sodium (test code = 2951-2) 134 meq/L 136-145 L Lab Interpretation (test code = Abnormal 88051-7) [facility]Gl[facility] [id number] 16:13:18 Test Item Value Reference Range Interpretation Comments Glucose (test code = 2345-7) 205 mg/dL 70-110 H Lab Interpretation (test code = Abnormal 43860-8) [facility] [id number] 16:13:18 Test Item Value Reference Range Interpretation Comments Sodium (test code = 2951-2) 134 meq/L 136-145 L Lab Interpretation (test code = Abnormal 16301-9) [facility]Glucose[facility]Stat End9629-02-14 16:13:18 Test Item Value Reference Range Interpretation Comments Glucose (test code = 2345-7) 205 mg/dL 70-110 H Lab Interpretation (test code = Abnormal 94837-8) [facility] [id number] 16:13:18 Test Item Value Reference Range Interpretation Comments Sodium (test code = 2951-2) 134 meq/L 136-145 L Lab Interpretation (test code = Abnormal 30853-7) [facility]Gl[facility] Ime0599-95-05 16:13:18 Test Item Value Reference Range Interpretation Comments Glucose (test code = 2345-7) 205 mg/dL 70-110 H Lab Interpretation (test code = Abnormal 80807-7) [facility] Ffu2724-07-36 16:13:18 Test Item Value Reference Range Interpretation Comments Sodium (test code = 2951-2) 134 meq/L 136-145 L Lab Interpretation (test code = Abnormal 56733-9) [facility]Gl[facility] [id number] 16:13:18 Test Item Value Reference Range Interpretation Comments Glucose (test code = 2345-7) 205 mg/dL 70-110 H Lab Interpretation (test code = Abnormal 92159-3) [facility] [id number] 16:13:18 Test Item Value Reference Range Interpretation Comments Sodium (test code = 2951-2) 134 meq/L 136-145 L Lab Interpretation (test code = Abnormal 50057-7) [facility] CenterODIUM NA-STAT [id number] 16:13:18 Test Item Value Reference Range Interpretation Comments SODIUM (BEAKER) (test code = 381) 134 meq/L 136-145 L GLUCOSE-STAT [id number] 16:13:18 Test Item Value Reference Range Interpretation Comments GLUCOSE RANDOM (BEAKER) (test code 205 mg/dL 70-110 H = 652) BLOOD GAS, [id number] 16:13:17 Test Item Value Reference Range Interpretation [...] (BEAKER) (test code = 1819) 60.0 Potassium-Stat [id number] 16:11:46 Test Item Value Reference Range Interpretation Comments Potassium (test code = 2823-3) 4.5 meq/L 3.6-5.5 Lab Interpretation (test code = Normal 51911-7) [facility]Potassium[facility]Stat [id number] 16:11:46 Test Item Value Reference Range Interpretation Comments Potassium (test code = 2823-3) 4.5 meq/L 3.6-5.5 Lab Interpretation (test code = Normal 85317-0) [facility]assium[facility]Stat Epl2402-18-38 16:11:46 Test Item Value Reference Range Interpretation Comments Potassium (test code = 2823-3) 4.5 meq/L 3.6-5.5 Lab Interpretation (test code = Normal 72977-1) [facility] CenterPotassium[facility]Stat [id number] 16:11:46 Test Item Value Reference Range Interpretation Comments Potassium (test code = 2823-3) 4.5 meq/L 3.6-5.5 Lab Interpretation (test code = Normal 99216-9) [facility]Stat [id number] 16:11:46 Test Item Value Reference Range Interpretation Comments Potassium (test code = 2823-3) 4.5 meq/L 3.6-5.5 Lab Interpretation (test code = Normal 27615-1) [facility]assium[facility]Stat [id number] 16:11:46 Test Item Value Reference Range Interpretation Comments Potassium (test code = 2823-3) 4.5 meq/L 3.6-5.5 Lab Interpretation (test code = Normal 65078-4) [facility]assium[facility]Stat [id number] 16:11:46 Test Item Value Reference Range Interpretation Comments Potassium (test code = 2823-3) 4.5 meq/L 3.6-5.5 Lab Interpretation (test code = Normal 19714-9) [facility] Phi9330-75-87 16:11:46 Test Item Value Reference Range Interpretation Comments Potassium (test code = 2823-3) 4.5 meq/L 3.6-5.5 Lab Interpretation (test code = Normal 35726-6) [facility] [id number] 16:11:46 Test Item Value Reference Range Interpretation Comments Potassium (test code = 2823-3) 4.5 meq/L 3.6-5.5 Lab Interpretation (test code = Normal 25933-5) [facility] [id number] 16:11:46 Test Item Value Reference Range Interpretation Comments Potassium (test code = 2823-3) 4.5 meq/L 3.6-5.5 Lab Interpretation (test code = Normal 18847-0) [facility] Eji1541-51-21 16:11:46 Test Item Value Reference Range Interpretation Comments Potassium (test code = 2823-3) 4.5 meq/L 3.6-5.5 Lab Interpretation (test code = Normal 38517-8) [facility] Mgq1581-26-05 16:11:46 Test Item Value Reference Range Interpretation Comments Potassium (test code = 2823-3) 4.5 meq/L 3.6-5.5 Lab Interpretation (test code = Normal 32798-8) [facility] Pri4492-68-25 16:11:46 Test Item Value Reference Range Interpretation Comments Potassium (test code = 2823-3) 4.5 meq/L 3.6-5.5 Lab Interpretation (test code = Normal 61155-4) [facility] [id number] 16:11:46 Test Item Value Reference Range Interpretation Comments Potassium (test code = 2823-3) 4.5 meq/L 3.6-5.5 Lab Interpretation (test code = Normal 51341-6) [facility] [id number] 16:11:46 Test Item Value Reference Range Interpretation Comments POTASSIUM (BEAKER) (test code = 4.5 meq/L 3.6-5.5 379) CALCIUM, [id number] 16:11:08 Test Item Value Reference Range Interpretation Comments CALCIUM IONIZED (BEAKER) (test 1.16 mmol/L 1.12-1.27 code = 698) PH, BLOOD (BEAKER) (test code = 7.44 1810) Manual Hefnvbalmgzh6989-01-97 16:00:23 Test Item Value Reference Range Interpretation [...] Poikilocytes (test code = 1+ few 966) Josephine Cells (test code = 1+ few 474) Artifact (test code = Present 3432) Platelet Conc (test code Decreased = 3438) BRANDI (test code = BRANDI) Farm Operator ID - Liza Tabitha comments: Slide comments: Lab Interpretation (test Abnormal code = 17126-7) [facility] Center[facility] Uktjnwgixhhu8963-01-17 16:00:23 Test Item Value Reference Range Interpretation [...] = 3438) BRANDI (test code = BRANDI) Farm Operator ID - Liza Lu comments: Slide comments: Lab Interpretation (test Abnormal code = 92605-4) [facility] Ognihburaxlb3862-36-73 16:00:23 Test Item Value Reference Range Interpretation [...] = 3438) BRANDI (test code = BRANDI) Farm Operator ID - Liza Lu comments: Slide comments: Lab Interpretation (test Abnormal code = 57298-9) [facility] Pzdqhceuuonw9536-63-66 16:00:23 Test Item Value Reference Range Interpretation [...] = 3438) BRANDI (test code = BRANDI) Farm Operator ID - Liza Tabitha comments: Slide comments: Lab Interpretation (test Abnormal code = 43627-7) [facility] Vbnvjjrauenx3007-96-06 16:00:23 Test Item Value Reference Range Interpretation [...] = 3438) BRANDI (test code = BRANDI) Farm Operator ID - Liza Lu comments: Slide comments: Lab Interpretation (test Abnormal code = 85668-0) [facility] Jnnoiaojxmod5200-16-99 16:00:23 Test Item Value Reference Range Interpretation [...] Poikilocytes (test code = 1+ few 966) Josephine Cells (test code = 1+ few 474) Artifact (test code = Present 3432) Platelet Conc (test code Decreased = 3438) BRANDI (test code = BRANDI) Farm Operator ID - Liza Lu comments: Slide comments: Lab Interpretation (test Abnormal code = 51790-0) [facility] Chqnaymzmzad5848-91-60 16:00:23 Test Item Value Reference Range Interpretation [...] Poikilocytes (test code = 1+ few 966) Josephine Cells (test code = 1+ few 474) Artifact (test code = Present 3432) Platelet Conc (test code Decreased = 3438) BRANDI (test code = BRANDI) Farm Operator ID - Liza Lu comments: Slide comments: Lab Interpretation (test Abnormal code = 75998-0) [facility] Pjqkhreshbhq2568-04-07 16:00:23 Test Item Value Reference Range Interpretation [...] Poikilocytes (test code = 1+ few 966) Josephine Cells (test code = 1+ few 474) Artifact (test code = Present 3432) Platelet Conc (test code Decreased = 3438) BRANDI (test code = BRANDI) Farm Operator ID - Liza PerezUser comments: Slide comments: Lab Interpretation (test Abnormal code = 97579-4) [facility] Zpizembxgeaj5008-64-22 16:00:23 Test Item Value Reference Range Interpretation [...] Poikilocytes (test code = 1+ few 966) Josephine Cells (test code = 1+ few 474) Artifact (test code = Present 3432) Platelet Conc (test code Decreased = 3438) BRANDI (test code = BRANDI) Farm Operator ID - Liza Lu comments: Slide comments: Lab Interpretation (test Abnormal code = 99987-1) [facility] Lfjmqrgfkbfg3499-57-62 16:00:23 Test Item Value Reference Range Interpretation [...] Poikilocytes (test code = 1+ few 966) Josephine Cells (test code = 1+ few 474) Artifact (test code = Present 3432) Platelet Conc (test code Decreased = 3438) BRANDI (test code = BRANDI) Farm Operator ID - Liza Lu comments: Slide comments: Lab Interpretation (test Abnormal code = 06380-9) [facility] Gqfucolrdewe0770-57-19 16:00:23 Test Item Value Reference Range Interpretation [...] Poikilocytes (test code = 1+ few 966) Josephine Cells (test code = 1+ few 474) Artifact (test code = Present 3432) Platelet Conc (test code Decreased = 3438) BRANDI (test code = BRANDI) Farm Operator ID - Liza Lu comments: Slide comments: Lab Interpretation (test Abnormal code = 54865-6) [facility] Zzpkwwhglulg6667-82-36 16:00:23 Test Item Value Reference Range Interpretation [...] = 3438) BRANDI (test code = BRANDI) Farm Operator ID - Ilza Tabitha comments: Slide comments: Lab Interpretation (test Abnormal code = 97521-1) [facility] Qdxzdarnsizc1910-06-98 16:00:23 Test Item Value Reference Range Interpretation [...] = 3438) BRANDI (test code = BRANDI) Farm Operator ID - Liza Lu comments: Slide comments: Lab Interpretation (test Abnormal code = 68043-0) [facility] Vhfkjxzmhvoh7376-04-75 16:00:23 Test Item Value Reference Range Interpretation [...] = 3438) BRANDI (test code = BRANDI) Farm Operator ID - Liza Lu comments: Slide comments: Lab Interpretation (test Abnormal code = 22023-3) [facility](CELLAVISION MANUAL DIFF)2021-06-18 16:00:23 Test Item [...] CONCENTRATION Decreased (CELLAVISION)(BEAKER) (test code = 3438) Farm Operator ID - Liza Lu comments: Slide comments:RAD, CHEST, 1 VIEW, NON [id number] 15:58:00Reason for exam:->Post-opShould this be performed at the bedside?->Yes [facility] LINDSAY : 1955 Sex: FFINAL REPORT CHEST AP PORTABLE COMPARISON STUDY: 06/10/2021 History provided: Postopevaluation ET tube in place with tip midway between clavicles and marlon. NG tip in the stomach. Right jugular [place]ay[place] catheter with tip in the right main pulmonary artery. Chest tubes with no pneumothorax. Mild right basilar atelectasis with trace right pleural effusion. Lungs otherwise grossly clear and vascularity normal. Signed: Wero Alvarezeport Verified Date/Time: 06/18/2021 15:58:54 Reading Location: [facility] Diagnostic Imaging Reading Room - [facility] 1310.12 C METABOLIC [id number] 15:57:50 Test Item Value Reference Range Interpretation [...] S NOT APPLICABLE FOR DIALYSIS PATIEN TS. Farm Operator ID - HIEN OGrwqkifyq-QISA7064-62-17 15:57:19 Test Item Value Reference Range Interpretation Comments Potassium (test code = 2823-3) 4.8 meq/L 3.5-5.1 Lab Interpretation (test code = Normal 59718-9) [facility]Potassium-WLEC6393-67-99 15:57:19 Test Item Value Reference Range Interpretation Comments Potassium (test code = 2823-3) 4.8 meq/L 3.5-5.1 Lab Interpretation (test code = Normal 50160-1) [facility]2022-03-17 15:57:19 Test Item Value Reference Range Interpretation Comments Potassium (test code = 2823-3) 4.8 meq/L 3.5-5.1 Lab Interpretation (test code = Normal 21505-4) [facility]2022-03-17 15:57:19 Test Item Value Reference Range Interpretation Comments Potassium (test code = 2823-3) 4.8 meq/L 3.5-5.1 Lab Interpretation (test code = Normal 09380-2) [facility]2022-03-17 15:57:19 Test Item Value Reference Range Interpretation Comments Potassium (test code = 2823-3) 4.8 meq/L 3.5-5.1 Lab Interpretation (test code = Normal 46808-1) [facility]2022-03-17 15:57:19 Test Item Value Reference Range Interpretation Comments Potassium (test code = 2823-3) 4.8 meq/L 3.5-5.1 Lab Interpretation (test code = Normal 13030-1) [facility]2022-03-17 15:57:19 Test Item Value Reference Range Interpretation Comments Potassium (test code = 2823-3) 4.8 meq/L 3.5-5.1 Lab Interpretation (test code = Normal 66929-6) [facility]2022-03-17 15:57:19 Test Item Value Reference Range Interpretation Comments Potassium (test code = 2823-3) 4.8 meq/L 3.5-5.1 Lab Interpretation (test code = Normal 11903-3) [facility]2022-03-17 15:57:19 Test Item Value Reference Range Interpretation Comments Potassium (test code = 2823-3) 4.8 meq/L 3.5-5.1 Lab Interpretation (test code = Normal 88818-9) [facility]2022-03-17 15:57:19 Test Item Value Reference Range Interpretation Comments Potassium (test code = 2823-3) 4.8 meq/L 3.5-5.1 Lab Interpretation (test code = Normal 04952-9) [facility]EBCS6863-39-52 15:57:19 Test Item Value Reference Range Interpretation Comments Potassium (test code = 2823-3) 4.8 meq/L 3.5-5.1 Lab Interpretation (test code = Normal 44016-3) [facility]SPTC9556-91-54 15:57:19 Test Item Value Reference Range Interpretation Comments Potassium (test code = 2823-3) 4.8 meq/L 3.5-5.1 Lab Interpretation (test code = Normal 51994-6) [facility]DIDZ3695-88-45 15:57:19 Test Item Value Reference Range Interpretation Comments Potassium (test code = 2823-3) 4.8 meq/L 3.5-5.1 Lab Interpretation (test code = Normal 40813-5) [facility]DUTP1951-37-11 15:57:19 Test Item Value Reference Range Interpretation Comments Potassium (test code = 2823-3) 4.8 meq/L 3.5-5.1 Lab Interpretation (test code = Normal 15697-0) [facility] 15:57:19 Test Item Value Reference Range Interpretation Comments POTASSIUM (BEAKER) (test code = 4.8 meq/L 3.5-5.1 379) ZMKAIONBLQ2870-06-36 15:57:19 Test Item Value Reference Range Interpretation Comments PHOSPHORUS (BEAKER) (test code = 4.9 mg/dL 2.3-4.7 H 604) Farm Operator ID - HIEN EWCUKKPAHQ2093-99-84 15:57:18 Test Item Value Reference Range Interpretation Comments MAGNESIUM (BEAKER) (test code = 2.6 mg/dL 1.6-2.6 627) Farm Operator ID - HIEN MPrepare upvoww3696-93-82 15:44:00 Test Item Value Reference Range Interpretation Comments Unit ABO (test code = O Neg 4630949) UNIT NUMBER (test code = [id number] 934-0) Status (test code = RETURNED FROM ISSUE 5671105) Blood Bank Product (test FFP code = 2263) PRODUCT CODE (test code = [id number] 933-2) [facility] kjvjsw9660-29-80 15:44:00 Test Item Value Reference Range Interpretation Comments Unit ABO (test code = O Neg 0300387) UNIT NUMBER (test code = [id number] 934-0) Status (test code = RETURNED FROM ISSUE 15100613) Blood Bank Product (test FFP code = 2263) PRODUCT CODE (test code = [id number] 933-2) [facility]2022-03-17 15:44:00 Test Item Value Reference Range Interpretation Comments Unit ABO (test code = O Neg 2755389) UNIT NUMBER (test code = [id number] 934-0) Status (test code = RETURNED FROM ISSUE 4968829) Blood Bank Product (test FFP code = 2263) PRODUCT CODE (test code = [id number] 933-2) [facility] cessko5148-88-42 15:44:00 Test Item Value Reference Range Interpretation Comments Unit ABO (test code = O Neg 7304680) UNIT NUMBER (test code = [id number] 934-0) Status (test code = RETURNED FROM ISSUE 1651794) Blood Bank Product (test FFP code = 2263) PRODUCT CODE (test code = [id number] 933-2) [facility]2022-03-17 15:44:00 Test Item Value Reference Range Interpretation Comments Unit ABO (test code = O Neg 7214440) UNIT NUMBER (test code = [id number] 934-0) Status (test code = RETURNED FROM ISSUE 6509184) Blood Bank Product (test FFP code = 2263) PRODUCT CODE (test code = W2676B49 933-2) [facility] nykwos4066-58-62 15:44:00 Test Item Value Reference Range Interpretation Comments Unit ABO (test code = O Neg 5557974) UNIT NUMBER (test code = [id number] 934-0) Status (test code = RETURNED FROM ISSUE 5734860) Blood Bank Product (test FFP code = 2263) PRODUCT CODE (test code = [id number] 933-2) [facility] wagamh8587-61-84 15:44:00 Test Item Value Reference Range Interpretation Comments Unit ABO (test code = O Neg 0808599) UNIT NUMBER (test code = [id number] 934-0) Status (test code = RETURNED FROM ISSUE 8740742) Blood Bank Product (test FFP code = 2263) PRODUCT CODE (test code = [id number] 933-2) [facility] ylaqlc5547-88-73 15:44:00 Test Item Value Reference Range Interpretation Comments Unit ABO (test code = O Neg 0843519) UNIT NUMBER (test code = [id number] 934-0) Status (test code = RETURNED FROM ISSUE 1848901) Blood Bank Product (test FFP code = 2263) PRODUCT CODE (test code = M2865R65 933-2) [facility] obkhzx7008-49-60 15:44:00 Test Item Value Reference Range Interpretation Comments Unit ABO (test code = O Neg 3754199) UNIT NUMBER (test code = [id number] 934-0) Status (test code = RETURNED FROM ISSUE 7895316) Blood Bank Product (test FFP code = 2263) PRODUCT CODE (test code = I4189R28 933-2) [facility] juwtdr6787-34-18 15:44:00 Test Item Value Reference Range Interpretation Comments Unit ABO (test code = O Neg 1763683) UNIT NUMBER (test code = [id number] 934-0) Status (test code = RETURNED FROM ISSUE 3593776) Blood Bank Product (test FFP code = 2263) PRODUCT CODE (test code = [id number] 933-2) [facility] rcaklj4028-29-70 15:44:00 Test Item Value Reference Range Interpretation Comments Unit ABO (test code = O Neg 0009615) UNIT NUMBER (test code = [id number] 934-0) Status (test code = RETURNED FROM ISSUE 0932370) Blood Bank Product (test FFP code = 2263) PRODUCT CODE (test code = [id number] 933-2) [facility] nrowzt6822-08-40 15:44:00 Test Item Value Reference Range Interpretation Comments Unit ABO (test code = O Neg 6454396) UNIT NUMBER (test code = [id number] 934-0) Status (test code = RETURNED FROM ISSUE 4961540) Blood Bank Product (test FFP code = 2263) PRODUCT CODE (test code = S0927N10 933-2) [facility] mmjeaa2829-24-92 15:44:00 Test Item Value Reference Range Interpretation Comments Unit ABO (test code = O Neg 9599819) UNIT NUMBER (test code = [id number] 934-0) Status (test code = RETURNED FROM ISSUE 8507484) Blood Bank Product (test FFP code = 2263) PRODUCT CODE (test code = D5742H73 933-2) [facility] CenterPre[facility] skqgad8527-98-93 15:44:00 Test Item Value Reference Range Interpretation Comments Unit ABO (test code = O Neg [id number]) UNIT NUMBER (test code = [id number] 934-0) Status (test code = RETURNED FROM ISSUE [id number]) Blood Bank Product (test FFP code = 2263) PRODUCT CODE (test code = [id number] 933-2) [facility] Test Item Value Reference Range Interpretation Comments PARTIAL THROMBOPLASTIN TIME 37.6 seconds 22.5-36.0 H (BEAKER) (test code = 760) PROTHROMBIN TIME/[id number] 15:31:52 Test Item Value Reference Range Interpretation Comments PROTIME (BEAKER) 17.9 seconds 11.9-14.2 H (test code = 759) INR (BEAKER) (test 1.50 See_Comment [Automat ed message] code = 370) The system [employer] generated this result transmitted ref erence range: <=5.90. The reference range was not used to int erpret this result as normal/abnormal . RECOMMENDED COUMADIN/WARFARIN INR THERAPY RANGESSTANDARD DOSE: 2.0 - 3.0 Includes: PROPHYLAXIS for venous thrombosis, systemic embolization; TREATMENT for venous thrombosis and/or pulmonary embolus.HIGH RISK: Target INR is 2.5-3.5 for patients with mechanical heart valves.CBC with platelet count + automated [id number] 15:24:09 Test Item Value Reference Range Interpretation Comments WBC (test code = 6690-2) 16.2 See_Comment H [A utomated message] The system [employer] generated this result transmitted ref erence range: 3.5 - 10 .5 K/L. The refe rence range was not u sed to interpret this result as normal/abnor mal. RBC (test code = 789-8) 3.33 See_Comment L [Au tomated message] The system [employer] generated this result transmitted ref erence range: 3.93 - 5 .22 M/L. The refe rence range was not u sed to interpret this result as normal/abnor mal. MCHC (test code = 786-4) 31.8 See_Comment L [A utomated message] The system [employer] generated this result transmitted ref erence range: [...] L [Aut omated message] 777-3) The system [employer] generated this result transmitted ref erence range: 150 - 45 0 K/CU MM. The referen ce range was not u sed to interpret this result as normal/abnor mal. MPV (test code = 10.3 fL 9.4-12.3 17848-4) nRBC (test code = 413) 0 See_Comment [Aut omated message] The system [employer] generated this result transmitted ref erence range: 0 - 0 /1 00 WBC. The refere nce range was not u sed to interpret this result as normal/abnor mal. Lab Interpretation (test Abnormal code = 96381-0) [facility] with platelet count + automated [id number] 15:24:09 Test Item Value Reference Range Interpretation Comments WBC (test code = 6690-2) 16.2 See_Comment H [A utomated message] The system [employer] generated this result transmitted ref erence range: 3.5 - 10 .5 K/L. The refe rence range was not u sed to interpret this result as normal/abnor mal. RBC (test code = 789-8) 3.33 See_Comment L [Au tomated message] The system [employer] generated this result transmitted ref erence range: 3.93 - 5 .22 M/L. The refe rence range was not u sed to interpret this result as normal/abnor mal. MCHC (test code = 786-4) 31.8 See_Comment L [A utomated message] The system [employer] generated this result transmitted ref erence range: [...] L [Aut omated message] 777-3) The system [employer] generated this result transmitted ref erence range: 150 - 45 0 K/CU MM. The referen ce range was not u sed to interpret this result as normal/abnor mal. MPV (test code = 10.3 fL 9.4-12.3 06927-7) nRBC (test code = 413) 0 See_Comment [Aut omated message] The system [employer] generated this result transmitted ref erence range: 0 - 0 /1 00 WBC. The refere nce range was not u sed to interpret this result as normal/abnor mal. Lab Interpretation (test Abnormal code = 07245-0) [facility] W/PLT COUNT & AUTO [id number] 15:24:09 Test Item Value Reference Range Interpretation [...] (BEAKER) (test code = 413) Hemoglobin and [id number] 15:23:11 Test Item Value Reference Range Interpretation Comments Hemoglobin (test code = 10.0 See_Comment L [Au tomated message] 786-4) The system [employer] generated this result transmitted ref erence range: 11.2 - 1 5.7 GM/DL. The refe rence range was not u sed to interpret this result as normal/abnor mal. Hematocrit (test code = 31.4 % 34.1-44.9 L 4544-3) Lab Interpretation (test Abnormal code = 39790-8) [facility]MO[facility] [id number] 15:23:11 Test Item Value Reference Range Interpretation Comments HEMOGLOBIN (BEAKER) (test code = 10.0 GM/DL 11.2-15.7 L 410) HEMATOCRIT (BEAKER) (test code = 31.4 % 34.1-44.9 L 411) BLOOD GAS, [id number] 15:19:54 Test Item Value Reference Range Interpretation [...] = 1819) 75.0 HGB/HCT (H&H) - STAT [id number] 15:19:53 Test Item Value Reference Range Interpretation Comments HEMOGLOBIN (BEAKER) (test code = 10.6 GM/DL 12.0-15.0 L 410) HEMATOCRIT (BEAKER) (test code = 31.0 % 36.0-45.0 L 411) GLUCOSE-STAT [id number] 15:19:46 Test Item Value Reference Range Interpretation Comments GLUCOSE RANDOM (BEAKER) (test code 200 mg/dL 70-110 H = 652) OXYGEN SATURATION, [id number] 15:18:32 Test Item Value Reference Range Interpretation Comments O2 SATURATION (MEASURED) (BEAKER) 83.4 % (test code = 1455) POTASSIUM-STAT [id number] 15:18:10 Test Item Value Reference Range Interpretation Comments POTASSIUM (BEAKER) (test code = 4.5 meq/L 3.6-5.5 379) SODIUM NA-STAT [id number] 15:18:09 Test Item Value Reference Range Interpretation Comments SODIUM (BEAKER) (test code = 381) 136 meq/L 136-145 CALCIUM, [id number] 15:18:08 Test Item Value Reference Range Interpretation Comments CALCIUM IONIZED (BEAKER) (test 1.14 mmol/L 1.12-1.27 code = 698) PH, BLOOD (BEAKER) (test code = 7.39 1810) POC ACTIVATED CLOTTING [id number] 14:20:47 Test Item Value Reference Range Interpretation Comments Activated Clotting Time 130 sec : 74 -137 seconds, (test code = 441) Baseline: TESTED AT [address], [address]: Farm Operator/Techni kelle ID = [id number] for Me ndoza, Rocky CONTRERAS [facility] ACTIVATED CLOTTING [id number] 14:20:47 Test Item Value Reference Range Interpretation Comments Activated Clotting Time 130 sec : 74 -137 seconds, (test code = 441) Baseline: TESTED AT [address], [address]: Farm Operator/Techni kelle ID = [id number] for Me ndoza, Rocky CONTRERAS [facility] ACTIVATED CLOTTING [id number] 14:20:47 Test Item Value Reference Range Interpretation Comments Activated Clotting Time 130 sec : 74 -137 seconds, (test code = 441) Baseline: TESTED AT [address], [address]: Farm Operator/Techni kelle ID = [id number] for Me ndoza, Rocky [facility] ACTIVATED CLOTTING [id number] 14:20:47 Test Item Value Reference Range Interpretation Comments Activated Clotting Time 130 sec : 74 -137 seconds, (test code = 441) Baseline: TESTED AT [address], [address]: Farm Operator/Techni kelle ID = [id number] for Me ndoza, Rocky [facility] ACTIVATED CLOTTING [id number] 14:20:47 Test Item Value Reference Range Interpretation Comments Activated Clotting Time 130 sec : 74 -137 seconds, (test code = 441) Baseline: TESTED AT [address], [address]: Farm Operator/Techni kelle ID = [id number] for Me ndoza, Rocky CONTRERAS [facility] ACTIVATED CLOTTING [id number] 14:20:47 Test Item Value Reference Range Interpretation Comments Activated Clotting Time 130 sec : 74 -137 seconds, (test code = 441) Baseline: TESTED AT [address], [address]: Farm Operator/Techni kelle ID = [id number] for Me ndoza, Rocky [facility] ACTIVATED CLOTTING [id number] 14:20:47 Test Item Value Reference Range Interpretation Comments Activated Clotting Time 130 sec : 74 -137 seconds, (test code = 441) Baseline: TESTED AT [address], [address]: Farm Operator/Techni kelle ID = [id number] for Me ndoza, Rocky CONTRERAS [facility] ACTIVATED CLOTTING [id number] 14:20:47 Test Item Value Reference Range Interpretation Comments Activated Clotting Time 130 sec : 74 -137 seconds, (test code = 441) Baseline: TESTED AT [address], [address]: Farm Operator/Techni kelle ID = [id number] for Me ndoza, Rocky CONTRERAS [facility] ACTIVATED CLOTTING [id number] 14:20:47 Test Item Value Reference Range Interpretation Comments Activated Clotting Time 130 sec : 74 -137 seconds, (test code = 441) Baseline: TESTED AT [address], [facility] 30: Farm Operator/Techni kelle ID = [id number] for Me ndoza, Rocky CONTRERAS [facility] ACTIVATED CLOTTING [id number] 14:20:47 Test Item Value Reference Range Interpretation Comments Activated Clotting Time 130 sec : 74 -137 seconds, (test code = 441) Baseline: TESTED AT [address], [address]: Farm Operator/Techni kelle ID = [id number] for Me ndoza, Rocky CONTRERAS [facility] ACTIVATED CLOTTING [id number] 14:20:47 Test Item Value Reference Range Interpretation Comments Activated Clotting Time 130 sec : 74 -137 seconds, (test code = 441) Baseline: TESTED AT [address], [address]: Farm Operator/Techni kelle ID = [id number] for Me ndoza, Rocky CONTRERAS [facility] ACTIVATED CLOTTING [id number] 14:20:47 Test Item Value Reference Range Interpretation Comments Activated Clotting Time 130 sec : 74 -137 seconds, (test code = 441) Baseline: TESTED AT [address], [address]: Farm Operator/Techni kelle ID = [id number] for Me ndoza, Rocky CONTRERAS [facility] ACTIVATED CLOTTING [id number] 14:20:47 Test Item Value Reference Range Interpretation Comments Activated Clotting Time 130 sec : 74 -137 seconds, (test code = 441) Baseline: TESTED AT [address], [facility] 30: Farm Operator/Techni kelle ID = [id number] for ndozaRocky [facility] ACTIVATED CLOTTING [id number] 14:20:47 Test Item Value Reference Range Interpretation Comments Activated Clotting Time 130 sec : 74 -137 seconds, (test code = 441) Baseline: TESTED AT [address], [address]: Farm Operator/Techni kelle ID = [id number] for Me sanchezozaRocky [facility][id number] 14:20:47 Test Item Value Reference Range Interpretation Comments ACTIVATED CLOTTING TIME 130 sec : 74 -137 seconds, (BEAKER) (test code = Baseli ne: TESTED AT 441) [address], [address]: Farm Operator/Techni kelle ID = [id number] for Me sanchezoza, Rocky [id number]-[id number] 14:20:46 Test Item Value Reference Range Interpretation Comments ACTIVATED CLOTTING TIME 577 sec : 74 -137 seconds, (BEAKER) (test code = Baseli ne: TESTED AT 441) [address], [address]: Farm Operator/Techni kelle ID = [id number] for ndoza, Rocky [id number] 14:20:45 Test Item Value Reference Range Interpretation Comments ACTIVATED CLOTTING TIME 743 sec : 74 -137 seconds, (BEAKER) (test code = Baseli ne: TESTED AT 441) [address], [address]: Farm Operator/Techni kelle ID = [id number] for ndoza, Rocky [id number]-[id number] 14:20:45 Test Item Value Reference Range Interpretation Comments ACTIVATED CLOTTING TIME 618 sec : 74 -137 seconds, (BEAKER) (test code = Baseli ne: TESTED AT 441) [address], [address]: Farm Operator/Techni kelle ID = [id number] for ndoza, Rocky [id number] 14:20:44 Test Item Value Reference Range Interpretation Comments ACTIVATED CLOTTING TIME 547 sec : 74 -137 seconds, (BEAKER) (test code = Baseli ne: TESTED AT 441) [address], [address]: Farm Operator/Techni kelle ID = [id number] for Me ndoza, Rocky [id number]-[id number] 14:20:12 Test Item Value Reference Range Interpretation Comments ACTIVATED CLOTTING TIME 809 sec : 74 -137 seconds, (BEAKER) (test code = Baselsammie ne: TESTED AT 441) [facility] [address] [facility], [place], [address]: Farm Operator/Techni kelle ID = [id number] for Rocky Danielle [id number] 13:49:05 Test Item Value Reference Range Interpretation Comments PARTIAL THROMBOPLASTIN TIME 38.3 seconds 22.5-36.0 H (BEAKER) (test code = 760) [id number] 13:48:43 Test Item Value Reference Range Interpretation Comments Fibrinogen (test code = 3255-7) 246 mg/dl 225-434 Lab Interpretation (test code = Normal 51306-7) [facility] Test Item Value Reference Range Interpretation Comments Fibrinogen (test code = 3255-7) 246 mg/dl 225-434 Lab Interpretation (test code = Normal 24929-8) [facility] 13:48:43 Test Item Value Reference Range Interpretation Comments Fibrinogen (test code = 3255-7) 246 mg/dl 225-434 Lab Interpretation (test code = Normal 10525-6) [facility] 13:48:43 Test Item Value Reference Range Interpretation Comments Fibrinogen (test code = 3255-7) 246 mg/dl 225-434 Lab Interpretation (test code = Normal 68529-0) [facility] 13:48:43 Test Item Value Reference Range Interpretation Comments Fibrinogen (test code = 3255-7) 246 mg/dl 225-434 Lab Interpretation (test code = Normal 61116-6) [facility] 13:48:43 Test Item Value Reference Range Interpretation Comments Fibrinogen (test code = 3255-7) 246 mg/dl 225-434 Lab Interpretation (test code = Normal 34036-3) [facility] 13:48:43 Test Item Value Reference Range Interpretation Comments Fibrinogen (test code = 3255-7) 246 mg/dl 225-434 Lab Interpretation (test code = Normal 46256-1) [facility]2022-03-17 13:48:43 Test Item Value Reference Range Interpretation Comments Fibrinogen (test code = 3255-7) 246 mg/dl 225-434 Lab Interpretation (test code = Normal 81156-7) [facility]2022-03-17 13:48:43 Test Item Value Reference Range Interpretation Comments Fibrinogen (test code = 3255-7) 246 mg/dl 225-434 Lab Interpretation (test code = Normal 68740-9) [facility]2022-03-17 13:48:43 Test Item Value Reference Range Interpretation Comments Fibrinogen (test code = 3255-7) 246 mg/dl 225-434 Lab Interpretation (test code = Normal 96171-4) [facility]2022-03-17 13:48:43 Test Item Value Reference Range Interpretation Comments Fibrinogen (test code = 3255-7) 246 mg/dl 225-434 Lab Interpretation (test code = Normal 17400-3) [facility]2022-03-17 13:48:43 Test Item Value Reference Range Interpretation Comments Fibrinogen (test code = 3255-7) 246 mg/dl 225-434 Lab Interpretation (test code = Normal 92493-5) [facility]2022-03-17 13:48:43 Test Item Value Reference Range Interpretation Comments Fibrinogen (test code = 3255-7) 246 mg/dl 225-434 Lab Interpretation (test code = Normal 17767-7) [facility]2022-03-17 13:48:43 Test Item Value Reference Range Interpretation Comments Fibrinogen (test code = 3255-7) 246 mg/dl 225-434 Lab Interpretation (test code = Normal 17381-9) [facility]2022-03-17 13:48:43 Test Item Value Reference Range Interpretation Comments FIBRINOGEN LEVEL (BEAKER) (test 246 mg/dl 225-434 code = 658) PROTHROMBIN TIME/[id number] 13:48:05 Test Item Value Reference Range Interpretation [...] 2.5-3.5 for patients with mechanical heart valves.Platelet [id number] 13:39:36 Test Item Value Reference Range Interpretation Comments Platelets (test code 133 See_Comment L [Autom ated = 777-3) message] The system which generated this result transmit levi reference range : 150 - 450 K/CU MM. The reference range was not u sed to interpret th is result as normal/abnormal . BRANDI (test code = BRANDI) Farm Operator ID - [id number] Lab Interpretation Abnormal (test code = 21548-7) [facility] [id number] 13:39:36 Test Item Value Reference Range Interpretation Comments Platelets (test code 133 See_Comment L [Autom ated = 777-3) message] The system which generated this result transmit levi reference range : 150 - 450 K/CU MM. The reference range was not u sed to interpret th is result as normal/abnormal . BRANDI (test code = BRANDI) Farm Operator ID - [id number] Lab Interpretation Abnormal (test code = 60496-0) [facility] [id number] 13:39:36 Test Item Value Reference Range Interpretation Comments Platelets (test code 133 See_Comment L [Autom ated = 777-3) message] The system which generated this result transmit levi reference range : 150 - 450 K/CU MM. The reference range was not u sed to interpret th is result as normal/abnormal . BRANDI (test code = BRANDI) Farm Operator ID - [id number] Lab Interpretation Abnormal (test code = 22587-3) [facility] [id number] 13:39:36 Test Item Value Reference Range Interpretation Comments Platelets (test code 133 See_Comment L [Autom ated = 777-3) message] The system which generated this result transmit levi reference range : 150 - 450 K/CU MM. The reference range was not u sed to interpret th is result as normal/abnormal . BRANDI (test code = BRANDI) Farm Operator ID - [id number] Lab Interpretation Abnormal (test code = 64780-1) [facility] [id number] 13:39:36 Test Item Value Reference Range Interpretation Comments Platelets (test code 133 See_Comment L [Autom ated = 777-3) message] The system which generated this result transmit levi reference range : 150 - 450 K/CU MM. The reference range was not u sed to interpret th is result as normal/abnormal . BRANDI (test code = BRANDI) Farm Operator ID - [id number] Lab Interpretation Abnormal (test code = 88817-2) [facility] [id number] 13:39:36 Test Item Value Reference Range Interpretation Comments Platelets (test code 133 See_Comment L [Autom ated = 777-3) message] The system which generated this result transmit levi reference range : 150 - 450 K/CU MM. The reference range was not u sed to interpret th is result as normal/abnormal . BRANDI (test code = BRANDI) Farm Operator ID - [id number] Lab Interpretation Abnormal (test code = 93614-2) [facility] [id number] 13:39:36 Test Item Value Reference Range Interpretation Comments Platelets (test code 133 See_Comment L [Autom ated = 777-3) message] The system which generated this result transmit levi reference range : 150 - 450 K/CU MM. The reference range was not u sed to interpret th is result as normal/abnormal . BRANDI (test code = BRANDI) Farm Operator ID - [id number] Lab Interpretation Abnormal (test code = 63229-7) [facility] [id number] 13:39:36 Test Item Value Reference Range Interpretation Comments Platelets (test code 133 See_Comment L [Autom ated = 777-3) message] The system which generated this result transmit levi reference range : 150 - 450 K/CU MM. The reference range was not u sed to interpret th is result as normal/abnormal . BRANDI (test code = BRANDI) Farm Operator ID - [id number] Lab Interpretation Abnormal (test code = 50326-2) [facility] [id number] 13:39:36 Test Item Value Reference Range Interpretation Comments Platelets (test code 133 See_Comment L [Autom ated = 777-3) message] The system which generated this result transmit levi reference range : 150 - 450 K/CU MM. The reference range was not u sed to interpret th is result as normal/abnormal . BRANDI (test code = BRANDI) Farm Operator ID - [id number] Lab Interpretation Abnormal (test code = 42346-7) [facility] [id number] 13:39:36 Test Item Value Reference Range Interpretation Comments Platelets (test code 133 See_Comment L [Autom ated = 777-3) message] The system which generated this result transmit levi reference range : 150 - 450 K/CU MM. The reference range was not u sed to interpret th is result as normal/abnormal . BRANDI (test code = BRANDI) Farm Operator ID - [id number] Lab Interpretation Abnormal (test code = 33683-6) [facility] [id number] 13:39:36 Test Item Value Reference Range Interpretation Comments Platelets (test code 133 See_Comment L [Autom ated = 777-3) message] The system which generated this result transmit levi reference range : 150 - 450 K/CU MM. The reference range was not u sed to interpret th is result as normal/abnormal . BRANDI (test code = BRNADI) Farm Operator ID - [id number] Lab Interpretation Abnormal (test code = 73142-2) [facility] [id number] 13:39:36 Test Item Value Reference Range Interpretation Comments Platelets (test code 133 See_Comment L [Autom ated = 777-3) message] The system which generated this result transmit levi reference range : 150 - 450 K/CU MM. The reference range was not u sed to interpret th is result as normal/abnormal . BRANDI (test code = BRANDI) Farm Operator ID - [id number] Lab Interpretation Abnormal (test code = 42027-0) [facility] [id number] 13:39:36 Test Item Value Reference Range Interpretation Comments Platelets (test code 133 See_Comment L [Autom ated = 777-3) message] The system which generated this result transmit levi reference range : 150 - 450 K/CU MM. The reference range was not u sed to interpret th is result as normal/abnormal . BRANDI (test code = BRANDI) Farm Operator ID - [id number] Lab Interpretation Abnormal (test code = 28973-3) [facility] [id number] 13:39:36 Test Item Value Reference Range Interpretation Comments Platelets (test code 133 See_Comment L [Autom ated = 777-3) message] The system which generated this result transmit levi reference range : 150 - 450 K/CU MM. The reference range was not u sed to interpret th is result as normal/abnormal . BRANDI (test code = BRANDI) Farm Operator ID - [id number] Lab Interpretation Abnormal (test code = 58099-4) [facility] [id number] 13:39:36 Test Item Value Reference Range Interpretation Comments PLATELET COUNT (BEAKER) (test 133 K/CU MM 150-450 L code = 756) Farm Operator ID - [id number]/HCT (H&H) - STAT [id number] 13:26:47 Test Item Value Reference Range Interpretation Comments HEMOGLOBIN (BEAKER) (test code = 7.4 GM/DL 12.0-15.0 L 410) HEMATOCRIT (BEAKER) (test code = 22.0 % 36.0-45.0 L 411) GLUCOSE-STAT [id number] 13:26:46 Test Item Value Reference Range Interpretation Comments GLUCOSE RANDOM (BEAKER) (test code 199 mg/dL 70-110 H = 652) SODIUM NA-STAT [id number] 13:26:46 Test Item Value Reference Range Interpretation Comments SODIUM (BEAKER) (test code = 381) 134 meq/L 136-145 L CALCIUM, [id number] 13:26:40 Test Item Value Reference Range Interpretation Comments CALCIUM IONIZED (BEAKER) (test 1.03 mmol/L 1.12-1.27 L code = 698) PH, BLOOD (BEAKER) (test code = 7.33 1810) BLOOD GAS, [id number] 13:26:34 Test Item Value Reference Range Interpretation [...] (BEAKER) (test code = 1819) 100.0 POTASSIUM-STAT 13:24:59 Test Item Value Reference Range Interpretation Comments POTASSIUM (BEAKER) (test code = 4.5 meq/L 3.6-5.5 379) PLATELET [id number] 13:18:08 Test Item Value Reference Range Interpretation Comments PLATELET COUNT (BEAKER) (test code 53 K/CU MM 150-450 L = 756) Farm Operator ID - [id number] ID - [id number] ID - [id number] 12:53:55 Test Item Value Reference Range Interpretation Comments PARTIAL THROMBOPLASTIN TIME > seconds 22.5-36.0 HH (BEAKER) (test code = 760) [id number] 12:36:04 Test Item Value Reference Range Interpretation Comments FIBRINOGEN LEVEL (BEAKER) (test 289 mg/dl 225-434 code = 658) PROTHROMBIN TIME/[id number] 12:35:28 Test Item Value Reference Range Interpretation Comments PROTIME (BEAKER) 25.4 seconds 11.9-14.2 H (test code = 759) INR (BEAKER) (test 2.35 See_Comment [Automat ed message] code = 370) The system [employer] generated this result transmitted ref erence range: <=5.90. The reference range was not used to int erpret this result as normal/abnormal . RECOMMENDED COUMADIN/WARFARIN INR THERAPY RANGESSTANDARD DOSE: 2.0 - 3.0 Includes: PROPHYLAXIS for venous thrombosis, systemic embolization; TREATMENT for venous thrombosis and/or pulmonary embolus.HIGH RISK: Target INR is 2.5-3.5 for patients with mechanical heart valves.HGB/HCT (H&H) - STAT [id number] 12:28:06 Test Item Value Reference Range Interpretation Comments HEMOGLOBIN (BEAKER) (test code = 9.3 GM/DL 12.0-15.0 L 410) HEMATOCRIT (BEAKER) (test code = 27.0 % 36.0-45.0 L 411) SODIUM NA-STAT [id number] 12:28:05 Test Item Value Reference Range Interpretation Comments SODIUM (BEAKER) (test code = 381) 133 meq/L 136-145 L GLUCOSE-STAT [id number] 12:28:05 Test Item Value Reference Range Interpretation Comments GLUCOSE RANDOM (BEAKER) (test code 189 mg/dL 70-110 H = 652) BLOOD GAS, [id number] 12:28:04 Test Item Value Reference Range Interpretation [...] (BEAKER) (test code = 1819) 75.0 POTASSIUM-STAT [id number] 12:27:48 Test Item Value Reference Range Interpretation Comments POTASSIUM (BEAKER) (test code = 5.5 meq/L 3.6-5.5 379) BLOOD GAS, [id number] 11:48:59 Test Item Value Reference Range Interpretation [...] (BEAKER) (test code = 1819) 70.0 GLUCOSE-STAT [id number] 11:47:10 Test Item Value Reference Range Interpretation Comments GLUCOSE RANDOM (BEAKER) (test code 186 mg/dL 70-110 H = 652) HGB/HCT (H&H) - STAT [id number] 11:47:10 Test Item Value Reference Range Interpretation Comments HEMOGLOBIN (BEAKER) (test code = 8.9 GM/DL 12.0-15.0 L 410) HEMATOCRIT (BEAKER) (test code = 26.0 % 36.0-45.0 L 411) SODIUM NA-STAT [id number] 11:47:09 Test Item Value Reference Range Interpretation Comments SODIUM (BEAKER) (test code = 381) 133 meq/L 136-145 L POTASSIUM-STAT [id number] 11:46:29 Test Item Value Reference Range Interpretation Comments POTASSIUM (BEAKER) (test code = 5.3 meq/L 3.6-5.5 379) HGB/HCT (H&H) - STAT [id number] 11:17:46 Test Item Value Reference Range Interpretation Comments HEMOGLOBIN (BEAKER) (test code = 9.6 GM/DL 12.0-15.0 L 410) HEMATOCRIT (BEAKER) (test code = 28.0 % 36.0-45.0 L 411) SODIUM NA-STAT [id number] 11:17:45 Test Item Value Reference Range Interpretation Comments SODIUM (BEAKER) (test code = 381) 133 meq/L 136-145 L BLOOD GAS, [id number] 11:17:39 Test Item Value Reference Range Interpretation [...] (BEAKER) (test code = 1819) 70.0 GLUCOSE-STAT [id number] 11:17:39 Test Item Value Reference Range Interpretation Comments GLUCOSE RANDOM (BEAKER) (test code 171 mg/dL 70-110 H = 652) POTASSIUM-STAT [id number] 11:17:36 Test Item Value Reference Range Interpretation Comments POTASSIUM (BEAKER) (test code = 5.1 meq/L 3.6-5.5 379) HGB/HCT (H&H) - STAT [id number] 10:50:26 Test Item Value Reference Range Interpretation Comments HEMOGLOBIN (BEAKER) (test code = 8.4 GM/DL 12.0-15.0 L 410) HEMATOCRIT (BEAKER) (test code = 25.0 % 36.0-45.0 L 411) SODIUM NA-STAT [id number] 10:50:25 Test Item Value Reference Range Interpretation Comments SODIUM (BEAKER) (test code = 381) 133 meq/L 136-145 L GLUCOSE-STAT [id number] 10:50:25 Test Item Value Reference Range Interpretation Comments GLUCOSE RANDOM (BEAKER) (test code 134 mg/dL 70-110 H = 652) BLOOD GAS, [id number] 10:50:24 Test Item Value Reference Range Interpretation [...] (BEAKER) (test code = 1819) 100.0 POTASSIUM-STAT [id number] 10:49:45 Test Item Value Reference Range Interpretation Comments POTASSIUM (BEAKER) (test code = 3.8 meq/L 3.6-5.5 379) Hemoglobin [id number] 09:30:26 Test Item Value Reference Range Interpretation [...] ADM Lab Interpretation Abnormal (test code = 08613-3) [id number] 09:30:26 Test Item Value Reference Range Interpretation [...] ADM Lab Interpretation Abnormal (test code = 11965-6) [facility] [id number] 09:30:26 Test Item Value Reference Range Interpretation [...] ADM Lab Interpretation Abnormal (test code = 39155-4) [facility] [id number] 09:30:26 Test Item Value Reference Range Interpretation [...] ADM Lab Interpretation Abnormal (test code = 95564-3) [facility] [id number] 09:30:26 Test Item Value Reference Range Interpretation [...] ADM Lab Interpretation Abnormal (test code = 74079-2) [facility] [id number] 09:30:26 Test Item Value Reference Range Interpretation [...] ADM Lab Interpretation Abnormal (test code = 90023-2) [facility] [id number] 09:30:26 Test Item Value Reference Range Interpretation [...] ADM Lab Interpretation Abnormal (test code = 88353-3) [facility] [id number] 09:30:26 Test Item Value Reference Range Interpretation [...] ADM Lab Interpretation Abnormal (test code = 83849-0) [facility] [id number] 09:30:26 Test Item Value Reference Range Interpretation [...] ADM Lab Interpretation Abnormal (test code = 68713-9) [facility] [id number] 09:30:26 Test Item Value Reference Range Interpretation Comments Hemoglobin A1C (test 6.9 % See_Comment H [Autom ated code = 4549-2) message] The system which generated this result transmitted reference range : <=5.6%. The reference range was not used to interpret this result as normal/abnormal . BRANDI (test code = RBANDI) "The A1c is measured using a NGSP-certified method. HbA1c value equal to or greater than 6.5% as the diagnosis cutoff for diabetes. An HbA1c value of 5.7-6.4% indicates increased risk for diabetes (prediabetes)."O perator ID - ADM Lab Interpretation Abnormal (test code = 88253-1) [facility] [id number] 09:30:26 Test Item Value Reference Range Interpretation [...] ADM Lab Interpretation Abnormal (test code = 47672-0) [facility] [id number] 09:30:26 Test Item Value Reference Range Interpretation [...] ADM Lab Interpretation Abnormal (test code = 62929-8) [facility] [id number] 09:30:26 Test Item Value Reference Range Interpretation [...] ADM Lab Interpretation Abnormal (test code = 29458-3) [facility] [id number] 09:30:26 Test Item Value Reference Range Interpretation [...] ADM Lab Interpretation Abnormal (test code = 35764-6) [facility]MO[facility] [id number] 09:30:26 Test Item Value Reference Range Interpretation [...] 5.7- 6.4% indicates increased risk for diabetes (prediabetes)."Farm Operator ID - ADM HGB/HCT (H&H) - STAT [id number] 09:13:03 Test Item Value Reference Range Interpretation Comments HEMOGLOBIN (BEAKER) (test code = 9.0 GM/DL 12.0-15.0 L 410) HEMATOCRIT (BEAKER) (test code = 26.0 % 36.0-45.0 L 411) SODIUM NA-STAT [id number] 09:13:02 Test Item Value Reference Range Interpretation Comments SODIUM (BEAKER) (test code = 381) 134 meq/L 136-145 L GLUCOSE-STAT [id number] 09:13:02 Test Item Value Reference Range Interpretation Comments GLUCOSE RANDOM (BEAKER) (test code 112 mg/dL 70-110 H = 652) BLOOD GAS, [id number] 09:13:01 Test Item Value Reference Range Interpretation [...] (BEAKER) (test code = 1819) 100.0 CALCIUM, [id number] 09:13:00 Test Item Value Reference Range Interpretation Comments CALCIUM IONIZED (BEAKER) (test 1.09 mmol/L 1.12-1.27 L code = 698) PH, BLOOD (BEAKER) (test code = 7.46 1810) POTASSIUM-STAT [id number] 09:12:15 Test Item Value Reference Range Interpretation Comments POTASSIUM (BEAKER) (test code = 3.7 meq/L 3.6-5.5 379) BASIC METABOLIC [id number] 07:11:03 Test Item Value Reference Range Interpretation [...] S NOT APPLICABLE FOR DIALYSIS PATIEN TS. Farm Operator ID - HIEN [id number] 06:29:42 Test Item Value Reference Range Interpretation Comments PHOSPHORUS (BEAKER) (test code = 4.7 mg/dL 2.3-4.7 604) Farm Operator ID - HIEN [id number] 06:29:41 Test Item Value Reference Range Interpretation Comments MAGNESIUM (BEAKER) (test code = 2.0 mg/dL 1.6-2.6 627) Farm Operator ID - HIEN [facility] W/PLT COUNT & AUTO [id number] 06:04:09 Test Item Value Reference Range Interpretation [...] code = 2801) RAD, ABDOMEN/KUB, 1 VIEW [id number] 02:55:00Reason for exam:->abdominal painST. [facility]Name: DESIRAEJAK : 1955 Sex: FFINAL REPORT CLINICAL [...] Quintero MDReport Verified Date/Time: 06/18/2021 02:55:15 POCT-GLUCOSE [id number] 21:39:12 Test Item Value Reference Range Interpretation Comments POC-GLUCOSE METER 135 mg/dL 70-110 H : TESTED A T [facility] 6720 (BEAKER) (test code = YUDY [place], 1538) [address]: Farm Operator/Techni kelle ID = [id number] for Eliezer Jerome HEMOGLOBIN AND [id number] 21:31:20 Test Item Value Reference Range Interpretation Comments HEMOGLOBIN (BEAKER) (test code = 6.9 GM/DL 11.2-15.7 L 410) HEMATOCRIT (BEAKER) (test code = 21.8 % 34.1-44.9 L 411) Farm Operator ID - [id number] ID - [id number], [id number] 18:33:00Unlisted Reason for Exam - Click Yes and Enter Reason Below->NoIs this for enterography?->NoPlease specify:->Renal Stone Protocolalso look for spleen if there is any infarct causing left flankpainWill this procedure require oral contrast?->NoST. JOHN'[facility]ENTERName: JAK [facility]RI[facility] : 1955 [...] Verified Date/Time: 06/17/2021 18:33:28 Reading Location: [address] Reading Room Comprehensive metabolic [id number] 16:18:22 Test Item Value Reference Range Interpretation Comments Protein, Total (test 7.0 See_Comment [Autom ated code = 2885-2) message] The system which generated this result transmit levi reference range : 6.0 - 8.3 gm/dL . The reference range was not u sed to interpret th is result as normal/abnormal . Albumin (test code = 2.7 g/dL 3.5-5.0 L 86833-7) Alkaline Phosphatase 99 U/L 40-150 (test code [...] Calcium (test code = 8.4 mg/dL 8.4-10.2 50826-2) AST (test code = 17 U/L -34 1920-8) ALT (test code = 10 U/L 6-55 1742-6) EGFR (test code = 11 mL/min/1.[place] [address]-7) NOT ACCURATE CREATININE CLEARANCE IN PREDICTING GLOMERULAR FILTRATION RATE . ESTIMATED GFR I S NOT APPLICABLE FOR DIALYSIS PATIEN TS. BRANDI (test code = BRANDI) Farm Operator ID - BS Lab Interpretation Abnormal (test code = 54707-0) [facility] [id number] 16:18:22 Test Item Value Reference Range Interpretation Comments Protein, Total (test 7.0 See_Comment [Autom ated code = 2885-2) message] The system which generated this result transmit levi reference range : 6.0 - 8.3 gm/dL . The reference range was not u sed to interpret th is result as normal/abnormal . Albumin (test code = 2.7 g/dL 3.5-5.0 L 88228-3) Alkaline Phosphatase 99 U/L 40-150 (test code [...] Calcium (test code = 8.4 mg/dL 8.4-10.2 70530-4) AST (test code = 17 U/L -34 0-8) ALT (test code = 10 U/L 1741-6) EGFR (test code = 11 mL/min/1.[place] [address]-1) NOT ACCURATE CREATININE CLEARANCE IN PREDICTING GLOMERULAR FILTRATION RATE . ESTIMATED GFR I S NOT APPLICABLE FOR DIALYSIS PATIEN BRANDI (test code = BRANDI) Farm Operator ID - BS Lab Interpretation Abnormal (test code = 84777-0) [facility] [id number] 16:18:22 Test Item Value Reference Range Interpretation Comments Protein, Total (test 7.0 See_Comment [Autom ated code = 2885-2) message] The system which generated this result transmit levi reference range : 6.0 - 8.3 gm/dL . The reference range was not u sed to interpret th is result as normal/abnormal . Albumin (test code = 2.7 g/dL 3.5-5.0 L 50199-2) Alkaline Phosphatase 99 U/L 40-150 (test code [...] Calcium (test code = 8.4 mg/dL 8.4-10.2 54621-0) AST (test code = 17 U/L -34 1919-8) ALT (test code = 10 U/L 1741-6) EGFR (test code = 11 mL/min/1.[place] [address]-4) NOT ACCURATE CREATININE CLEARANCE IN PREDICTING GLOMERULAR FILTRATION RATE . ESTIMATED GFR I S NOT APPLICABLE FOR DIALYSIS PATIEN BRANDI (test code = BRANDI) Farm Operator ID - BS Lab Interpretation Abnormal (test code = 31129-9) [facility] [id number] 16:18:22 Test Item Value Reference Range Interpretation Comments Protein, Total (test 7.0 See_Comment [Autom ated code = 2885-2) message] The system which generated this result transmit levi reference range : 6.0 - 8.3 gm/dL . The reference range was not u sed to interpret th is result as normal/abnormal . Albumin (test code = 2.7 g/dL 3.5-5.0 L 02747-9) Alkaline Phosphatase 99 U/L 40-150 (test code [...] Calcium (test code = 8.4 mg/dL 8.4-10.2 96691-2) AST (test code = 17 U/L 5-34 1920-8) ALT (test code = 10 U/L 6-55 1742-6) EGFR (test code = 11 mL/min/1.[place] [address]-1) NOT ACCURATE CREATININE CLEARANCE IN PREDICTING GLOMERULAR FILTRATION RATE . ESTIMATED GFR I S NOT APPLICABLE FOR DIALYSIS PATIEN BRANDI (test code = BRANDI) Farm Operator ID - BS Lab Interpretation Abnormal (test code = 05185-7) [facility] [id number] 16:18:22 Test Item Value Reference Range Interpretation Comments Protein, Total (test 7.0 See_Comment [Autom ated code = 2885-2) message] The system which generated this result transmit levi reference range : 6.0 - 8.3 gm/dL . The reference range was not u sed to interpret th is result as normal/abnormal . Albumin (test code = 2.7 g/dL 3.5-5.0 L 79751-1) Alkaline Phosphatase 99 U/L 40-150 (test code [...] Calcium (test code = 8.4 mg/dL 8.4-10.2 21098-4) AST (test code = 17 U/L 5-34 1920-8) ALT (test code = 10 U/L 6-55 1742-6) EGFR (test code = 11 mL/min/1.[place] [address]-0) NOT ACCURATE CREATININE CLEARANCE IN PREDICTING GLOMERULAR FILTRATION RATE . ESTIMATED GFR I S NOT APPLICABLE FOR DIALYSIS PATIEN TS. BRANDI (test code = BRANDI) Farm Operator ID - BS Lab Interpretation Abnormal (test code = 71853-5) [facility] [id number] 16:18:22 Test Item Value Reference Range Interpretation Comments Protein, Total (test 7.0 See_Comment [Autom ated code = 2885-2) message] The system which generated this result transmit levi reference range : 6.0 - 8.3 gm/dL . The reference range was not u sed to interpret th is result as normal/abnormal . Albumin (test code = 2.7 g/dL 3.5-5.0 L 18429-7) Alkaline Phosphatase 99 U/L 40-150 (test code [...] Calcium (test code = 8.4 mg/dL 8.4-10.2 53600-4) AST (test code = 17 U/L 5-34 1920-8) ALT (test code = 10 U/L 6-55 1742-6) EGFR (test code = 11 mL/min/1.[place] [address]-5) NOT ACCURATE CREATININE CLEARANCE IN PREDICTING GLOMERULAR FILTRATION RATE . ESTIMATED GFR I S NOT APPLICABLE FOR DIALYSIS PATIEN BRANDI (test code = BRANDI) Farm Operator ID - BS Lab Interpretation Abnormal (test code = 35894-7) [facility] [id number] 16:18:22 Test Item Value Reference Range Interpretation Comments Protein, Total (test 7.0 See_Comment [Autom ated code = 2885-2) message] The system which generated this result transmit levi reference range : 6.0 - 8.3 gm/dL . The reference range was not u sed to interpret th is result as normal/abnormal . Albumin (test code = 2.7 g/dL 3.5-5.0 L 29571-5) Alkaline Phosphatase 99 U/L 40-150 (test code = 6768-6) Total Bilirubin (test 0.4 mg/dL 0.2-1.2 code = 1974-05) Sodium (test code = 135 meq/L 136-145 [...] Calcium (test code = 8.4 mg/dL 8.4-10.2 37721-1) AST (test code = 17 U/L 5-34 1920-8) ALT (test code = 10 U/L 6-55 1742-6) EGFR (test code = 11 mL/min/1.[place] [address]-1) NOT ACCURATE CREATININE CLEARANCE IN PREDICTING GLOMERULAR FILTRATION RATE . ESTIMATED GFR I S NOT APPLICABLE FOR DIALYSIS PATIEN TS. BRANDI (test code = BRANDI) Farm Operator ID - BS Lab Interpretation Abnormal (test code = 07862-5) [facility] [id number] 16:18:22 Test Item Value Reference Range Interpretation Comments Protein, Total (test 7.0 See_Comment [Autom ated code = 2885-2) message] The system which generated this result transmit levi reference range : 6.0 - 8.3 gm/dL . The reference range was not u sed to interpret th is result as normal/abnormal . Albumin (test code = 2.7 g/dL 3.5-5.0 L 43757-0) Alkaline Phosphatase 99 U/L 40-150 (test code [...] Calcium (test code = 8.4 mg/dL 8.4-10.2 22598-7) AST (test code = 17 U/L -34 1920-8) ALT (test code = 10 U/L 6-55 1742-6) EGFR (test code = 11 mL/min/1.[place] [address]-6) NOT ACCURATE CREATININE CLEARANCE IN PREDICTING GLOMERULAR FILTRATION RATE . ESTIMATED GFR I S NOT APPLICABLE FOR DIALYSIS PATIEN TS. BRANDI (test code = BRANDI) Farm Operator ID - BS Lab Interpretation Abnormal (test code = 96611-6) [facility] [id number] 16:18:22 Test Item Value Reference Range Interpretation Comments Protein, Total (test 7.0 See_Comment [Autom ated code = 2885-2) message] The system which generated this result transmit levi reference range : 6.0 - 8.3 gm/dL . The reference range was not u sed to interpret th is result as normal/abnormal . Albumin (test code = 2.7 g/dL 3.5-5.0 L 67945-6) Alkaline Phosphatase 99 U/L 40-150 (test code [...] Calcium (test code = 8.4 mg/dL 8.4-10.2 83919-0) AST (test code = 17 U/L 1919-8) ALT (test code = 10 U/L 1742-6) EGFR (test code = 11 mL/min/1.[place] [address]-0) NOT ACCURATE CREATININE CLEARANCE IN PREDICTING GLOMERULAR FILTRATION RATE . ESTIMATED GFR I S NOT APPLICABLE FOR DIALYSIS PATIEN TS. BRANDI (test code = BRANDI) Farm Operator ID - BS Lab Interpretation Abnormal (test code = 28555-1) [facility] [id number] 16:18:22 Test Item Value Reference Range Interpretation Comments Protein, Total (test 7.0 See_Comment [Autom ated code = 2885-2) message] The system which generated this result transmit levi reference range : 6.0 - 8.3 gm/dL . The reference range was not u sed to interpret th is result as normal/abnormal . Albumin (test code = 2.7 g/dL 3.5-5.0 L 84379-4) Alkaline Phosphatase 99 U/L 40-150 (test code [...] Calcium (test code = 8.4 mg/dL 8.4-10.2 22280-9) AST (test code = 17 U/L 1919-8) ALT (test code = 10 U/L 2-6) EGFR (test code = 11 mL/min/1.[place] [address]-7) NOT ACCURATE CREATININE CLEARANCE IN PREDICTING GLOMERULAR FILTRATION RATE . ESTIMATED GFR I S NOT APPLICABLE FOR DIALYSIS PATIEN TS. BRANDI (test code = BRANDI) Farm Operator ID - BS Lab Interpretation Abnormal (test code = 08991-4) [facility] [id number] 16:18:22 Test Item Value Reference Range Interpretation Comments Protein, Total (test 7.0 See_Comment [Autom ated code = 2885-2) message] The system which generated this result transmit levi reference range : 6.0 - 8.3 gm/dL . The reference range was not u sed to interpret th is result as normal/abnormal . Albumin (test code = 2.7 g/dL 3.5-5.0 L 32615-9) Alkaline Phosphatase 99 U/L 40-150 (test code [...] Calcium (test code = 8.4 mg/dL 8.4-10.2 51800-5) AST (test code = 17 U/L 5-34 1920-8) ALT (test code = 10 U/L 6-55 1742-6) EGFR (test code = 11 mL/min/1.[place] [address]-2) NOT ACCURATE CREATININE CLEARANCE IN PREDICTING GLOMERULAR FILTRATION RATE . ESTIMATED GFR I S NOT APPLICABLE FOR DIALYSIS PATIEN TS. PAZ (test code = BRANDI) Farm Operator ID - BS Lab Interpretation Abnormal (test code = 12789-6) [facility] [id number] 16:18:22 Test Item Value Reference Range Interpretation Comments Protein, Total (test 7.0 See_Comment [Autom ated code = 2885-2) message] The system which generated this result transmit levi reference range : 6.0 - 8.3 gm/dL . The reference range was not u sed to interpret th is result as normal/abnormal . Albumin (test code = 2.7 g/dL 3.5-5.0 L 21624-0) Alkaline Phosphatase 99 U/L 40-150 (test code [...] Calcium (test code = 8.4 mg/dL 8.4-10.2 64117-3) AST (test code = 17 U/L 5-34 1920-8) ALT (test code = 10 U/L 6-55 1742-6) EGFR (test code = 11 mL/min/1.73 sq m [place] [address]-6) NOT ACCURATE CREATININE CLEARANCE IN PREDICTING GLOMERULAR FILTRATION RATE . ESTIMATED GFR I S NOT APPLICABLE FOR DIALYSIS PATIEN TS. BRANDI (test code = BRANDI) Farm Operator ID - BS Lab Interpretation Abnormal (test code = 92861-2) [facility] [id number] 16:18:22 Test Item Value Reference Range Interpretation Comments Protein, Total (test 7.0 See_Comment [Autom ated code = 2885-2) message] The system which generated this result transmit levi reference range : 6.0 - 8.3 gm/dL . The reference range was not u sed to interpret th is result as normal/abnormal . Albumin (test code = 2.7 g/dL 3.5-5.0 L 58944-0) Alkaline Phosphatase 99 U/L 40-150 (test code [...] Calcium (test code = 8.4 mg/dL 8.4-10.2 09894-7) AST (test code = 17 U/L 5-34 1920-8) ALT (test code = 10 U/L 6-55 1742-6) EGFR (test code = 11 mL/min/1.73 sq [place] [address]-9) NOT ACCURATE CREATININE CLEARANCE IN PREDICTING GLOMERULAR FILTRATION RATE . ESTIMATED GFR I S NOT APPLICABLE FOR DIALYSIS PATIEN TS. BRANDI (test code = BRANDI) Farm Operator ID - BS Lab Interpretation Abnormal (test code = 10499-5) [facility] [id number] 16:18:22 Test Item Value Reference Range Interpretation Comments Protein, Total (test 7.0 See_Comment [Autom ated code = 2885-2) message] The system which generated this result transmit levi reference range : 6.0 - 8.3 gm/dL . The reference range was not u sed to interpret th is result as normal/abnormal . Albumin (test code = 2.7 g/dL 3.5-5.0 L 23716-7) Alkaline Phosphatase 99 U/L 40-150 (test code [...] Calcium (test code = 8.4 mg/dL 8.4-10.2 88179-3) AST (test code = 17 U/L 5-34 1920-8) ALT (test code = 10 U/L 6-55 1742-6) EGFR (test code = 11 mL/min/1.[place] [address]-4) NOT ACCURATE CREATININE CLEARANCE IN PREDICTING GLOMERULAR FILTRATION RATE . ESTIMATED GFR I S NOT APPLICABLE FOR DIALYSIS PATIEN TS. PAZ (test code = BRANDI) Farm Operator ID - BS Lab Interpretation Abnormal (test code = 94102-6) [facility] [id number] 16:18:22 Test Item Value Reference Range Interpretation [...] S NOT APPLICABLE FOR DIALYSIS PATIEN TS. Farm Operator ID - [id number] 16:17:20 Test Item Value Reference Range Interpretation Comments MAGNESIUM (BEAKER) (test code = 1.8 mg/dL 1.6-2.6 627) Farm Operator ID - [id number] 16:10:37 Test Item Value Reference Range Interpretation Comments PARTIAL THROMBOPLASTIN TIME 34.5 seconds 22.5-36.0 (BEAKER) (test code = 760) PROTHROMBIN TIME/[id number] 16:10:03 Test Item Value Reference Range Interpretation Comments PROTIME (BEAKER) 17.2 seconds 11.9-14.2 H (test code = 759) INR (BEAKER) (test 1.43 See_Comment [Automat ed message] code = 370) The system [employer] generated this result transmitted ref erence range: <=5.90. The reference range was not used to int erpret this result as normal/abnormal . RECOMMENDED COUMADIN/WARFARIN INR THERAPY RANGESSTANDARD DOSE: 2.0 - 3.0 Includes: PROPHYLAXIS for venous thrombosis, systemic embolization; TREATMENT for venous thrombosis and/or pulmonary embolus.HIGH RISK: Target INR is 2.5-3.5 for patients with mechanical heart valves.CBC W/PLT COUNT & AUTO [id number] 16:01:31 Test Item Value Reference Range Interpretation [...] (BEAKER) (test code = 2801) NV, ANGIOGRAM, [id number] 09:13:00Reason for exam:->mycotic aneurysm rule outCH[facility]: [facility] : 1955 Sex: FFINAL REPORT DATE OF PROCEDURE: 06/16/2021 SURGEON: Mili Kent MD DATA CONTROL ASSISTANT: Eloy Portillo MD; Alisa Monae MD PREOPERATIVE DIAGNOSIS: Subarachnoid hemorrhage POST OPERATIVE DIAGNOSIS: Nonaneurysmal subarachnoid hemorrhage PROCEDURE: Diagnostic cerebral injury ANESTHESIA: Monitored anesthesia ESTIMATED BLOOD LOSS: Minimal COMPLICATIONS: None Vessels catheterized:Right common femoral arteryRight common carotid artery, cervicalRight common carotid, cerebralLeft common carotid artery, cervicalLeft common carotid, cerebralLeft vertebral artery *FEMORAL*5F sheathBentson WireVertebral CatheterTerumo [place] wireMynx Closure Device INDICATIONS: The patient is [...] a 5-Fr short sheath was inserted into theright common femoral artery and maintained on heparinized flush. Using coaxial technique, a 5-Fr Angled glide catheter was advanced into the descending aorta, back-bled, and flushed in the usual fashion. Using coaxial technique, the catheter was advanced into the aortic arch, and with the aid of the roadmapping, digital fluoroscopy, and careful guidewire manipulation the mentioned above arteries werecatheterized. Upon each successive selective catheterization, digital subtraction [...] - CERVICAL) The catheter was used to se lect the right common carotid artery. DSA in the AP and lateral views of the cervical region performed. The distal common, proximal internal, and imaged external carotid arteries are normal in caliber and contour. The carotid bifurcation is widely patent. RIGHT COMMON CAROTID ARTERY (DSA - AP, LATERAL- HEAD) The catheter was advanced into the right common carotid artery. DSA in the AP, lateral, and oblique views of the intracranial and extracranial circulation was performed. The intracranial segments of the right internal carotid artery, the middle cerebral artery, and the anterior cerebral arteryand the branch vessels are normal in caliber and contour. The anterior and posterior communicating arteries are patent. There is a right IMMIGRATION ATTORNEY variant anatomy. No evidence of aneurysm, vascular [...] the right common carotid artery. 3-D rotational a ngiography of the intracranial and extracranial circulation was performed. The intracranial segmentsof the right internal carotid artery, the middle cerebral artery, and the anterior cerebral artery and the branch vessels are normal in caliber and contour. No evidence of aneurysm, vascular malformation, or arteriovenous shunting. LEFT COMMON CAROTID ARTERY (DSA - AP, LATERAL - CERVICAL) The catheterwas used to select the left common carotid [...] the intracranial circulation was performed. The intracranial segmentsof the left internal carotid artery, the middle [...] patent. The visualized branches of the left externalcarotid artery appear normal in contour and caliber. No evidence of aneurysm, vascular malformation or arteriovenous shunting. 3D ROTATIONAL ANGIOGRAPHY OF LEFT COMMON CAROTID ARTERY (DSA - AP, LATERAL- HEAD) The catheter was advanced into the [...] cerebral artery is diminutive in size given IMMIGRATION ATTORNEY anatomy and the the left IMMIGRATION ATTORNEY is normal in caliber and contour. No evidence of aneurysm, vascular malformation, or arteriovenous shunting. Dynamicimaging guidance with normal capillary phase. The intracranial venous structures opacify appropriately and appear patent. SUPERVISION AND INTERPRETATION: Dr. Kent was present for the entirety of theprocedure Angiographic study demonstrates: 1. Normal cerebral angiogram. There is no evidence of mycotic aneurysm, vascular malformation or arteriovenous shunting. No immediate technical or clinical complications. Signed: Mili Kent MDReport Verified Date/Time: 06/17/2021 09:13:43 Reading Location:[facility] Y026 Neuro Angio Reading Room BASIC METABOLIC [id number] 05:09:41 Test Item Value Reference Range Interpretation [...] S NOT APPLICABLE FOR DIALYSIS PATIEN TS. Farm Operator ID - HIEN [id number] 05:07:06 Test Item Value Reference Range Interpretation Comments MAGNESIUM (BEAKER) (test code = 2.1 mg/dL 1.6-2.6 627) Farm Operator ID - HIEN AWKVMKHZJEH8636-08-76 05:07:06 Test Item Value Reference Range Interpretation Comments PHOSPHORUS (BEAKER) (test code = 5.7 mg/dL 2.3-4.7 H 604) Farm Operator ID - HIEN [facility]BC W/PLT COUNT & AUTO [id number] 04:38:56 Test Item Value Reference Range Interpretation [...] PERCENT (BEAKER) (test code = 2801) POCT-GLUCOSE [id number] 00:10:32 Test Item Value Reference Range Interpretation Comments POC-GLUCOSE METER 221 mg/dL 70-110 H : TESTED A T [facility] 6720 (BEAKER) (test code = [place], 1538) [address]: Farm Operator/Techni kelle ID = [id number] for SHAHLA BARRY POCT-GLUCOSE [id number] 18:11:32 Test Item Value Reference Range Interpretation Comments POC-GLUCOSE METER 170 mg/dL 70-110 H : TESTED A T [facility] 6720 (BEAKER) (test code = [place], 1538) [address]: Farm Operator/Techni kelle ID = [id number] for Onelia Lorenz Blood [id number] 14:00:39 Test Item Value Reference Range Interpretation Comments Result (test code = No growth in 5 days 6463-4) [facility] [id number] 14:00:39 Test Item Value Reference Range Interpretation Comments Result (test code = No growth in 5 days 6463-4) [facility] [id number] 14:00:39 Test Item Value Reference Range Interpretation Comments Result (test code = No growth in 5 days 6463-4) [facility] [id number] 14:00:39 Test Item Value Reference Range Interpretation Comments Result (test code = No growth in 5 days 6463-4) [facility] [id number] 14:00:39 Test Item Value Reference Range Interpretation Comments Result (test code = No growth in 5 days 6463-4) [facility] [id number] 14:00:39 Test Item Value Reference Range Interpretation Comments Result (test code = No growth in 5 days 6463-4) [facility] [id number] 14:00:39 Test Item Value Reference Range Interpretation Comments Result (test code = No growth in 5 days 6463-4) [facility]2022-03-15 14:00:39 Test Item Value Reference Range Interpretation Comments Result (test code = No growth in 5 days 6463-4) [facility] [id number] 14:00:39 Test Item Value Reference Range Interpretation Comments Result (test code = No growth in 5 days 6463-4) [facility] [id number] 14:00:39 Test Item Value Reference Range Interpretation Comments Result (test code = No growth in 5 days 6463-4) [facility] [id number] 14:00:39 Test Item Value Reference Range Interpretation Comments Result (test code = No growth in 5 days 6463-4) [facility] [id number] 14:00:39 Test Item Value Reference Range Interpretation Comments Result (test code = No growth in 5 days 6463-4) [facility] [id number] 14:00:39 Test Item Value Reference Range Interpretation Comments Result (test code = No growth in 5 days 6463-4) [facility] [id number] 14:00:39 Test Item Value Reference Range Interpretation Comments Result (test code = No growth in 5 days 6463-4) [facility] [id number] 14:00:39 Test Item Value Reference Range Interpretation Comments CULTURE (BEAKER) (test No growth in 5 days code = 1095) MR, BRAIN, WITHOUT [id number] 13:02:00Pt has [place] [facility]SS[facility] MRI L111/ [id number] Unlisted Reason for Exam - Click Yes and Enter Reason Below- >No Deos the patient have an implanted electronic device?->Yes [place] [facility] MRI L111/ [id number] [facility] : 1955 [...] MDReport Verified Date/Time: 06/16/2021 13:02:07 Reading Location: [facility] [id number] Neuro Reading Room D [id number] 08:00:27 Test Item Value Reference Range Interpretation Comments CULTURE (BEAKER) (test No growth in 5 days code = 1095) POCT-GLUCOSE [id number] 07:30:10 Test Item Value Reference Range Interpretation Comments POC-GLUCOSE METER 159 mg/dL 70-110 H : TESTED [facility] 6720 (BEAKER) (test code = [place], 1538) [address]: Farm Operator/Techni kelle ID = [id number] for Onelia Lorenz BASIC METABOLIC [id number] 05:42:18 Test Item Value Reference Range Interpretation [...] S NOT APPLICABLE FOR DIALYSIS PATIEN TS. Farm Operator ID - RAKAN [id number] 05:35:31 Test Item Value Reference Range Interpretation Comments MAGNESIUM (BEAKER) (test code = 2.1 mg/dL 1.6-2.6 627) Farm Operator ID - RAKAN [id number] 05:35:31 Test Item Value Reference Range Interpretation Comments PHOSPHORUS (BEAKER) (test code = 4.5 mg/dL 2.3-4.7 604) Farm Operator ID - RAKAN [facility] W/PLT COUNT & AUTO [id number] 04:43:33 Test Item Value Reference Range Interpretation [...] PERCENT (BEAKER) (test code = 2801) BLOOD [id number] 00:00:28 Test Item Value Reference Range Interpretation Comments CULTURE (AKASH) (test No growth in 5 days code = 1095) The specimen volume collected for this blood culture was below the optimum (10 mL per bottle or 20 mL total). Use of lower volumes may adversely affect recovery and/or detection times of some organisms.POCT-GLUCOSE [id number] 21:39:58 Test Item Value Reference Range Interpretation Comments POC-GLUCOSE METER 173 mg/dL 70-110 H : Notified RN/MD: (AKASH) (test code = TESTED AT [facility] 5402 5018) [facility], [address]: Farm Operator/Techni kelle ID = [id number] for DE NNIS, EMANUEL Hepatic function [id number] 15:52:11 Test Item Value Reference Range Interpretation Comments Protein, Total (test 6.8 See_Comment [Autom ated code = 2885-2) message] The system which generated this result transmit levi reference range : 6.0 - 8.3 gm/dL . The reference range was not u sed to interpret th is result as normal/abnormal . Albumin (test code = 2.6 g/dL 3.5-5.0 L 07853-3) Total Bilirubin (test 0.3 mg/dL 0.2-1.2 code = 1974-) Bilirubin, Direct 0.2 mg/dL 0.1-0.5 (test code = 1967-10) Alkaline Phosphatase 90 U/L 40-150 (test code = 6768-6) AST (test code = 17 U/L 1920-8) ALT (test code = 11 U/L 1742-6) BRANDI (test code = BRANDI) Farm Operator ID - LIANA L Lab Interpretation Abnormal (test code = 72308-9) [facility] [id number] 15:52:11 Test Item Value Reference Range Interpretation Comments Protein, Total (test 6.8 See_Comment [Autom ated code = 2885-2) message] The system which generated this result transmit leiv reference range : 6.0 - 8.3 gm/dL . The reference range was not u sed to interpret th is result as normal/abnormal . Albumin (test code = 2.6 g/dL 3.5-5.0 L 67259-8) Total Bilirubin (test 0.3 mg/dL 0.2-1.2 code = 1974-05) Bilirubin, Direct 0.2 mg/dL 0.1-0.5 (test code = 1967-10) Alkaline Phosphatase 90 U/L 40-150 (test code = 6768-6) AST (test code = 17 U/L 1919-8) ALT (test code = 11 U/L 1742-6) BRANDI (test code = BRANDI) Farm Operator ID - PIAYA L Lab Interpretation Abnormal (test code = 69754-8) [facility] [id number] 15:52:11 Test Item Value Reference Range Interpretation Comments Protein, Total (test 6.8 See_Comment [Autom ated code = 2885-2) message] The system which generated this result transmit levi reference range : 6.0 - 8.3 gm/dL . The reference range was not u sed to interpret th is result as normal/abnormal . Albumin (test code = 2.6 g/dL 3.5-5.0 L 23671-3) Total Bilirubin (test 0.3 mg/dL 0.2-1.2 code = 1974-05) Bilirubin, Direct 0.2 mg/dL 0.1-0.5 (test code = 1967-) Alkaline Phosphatase 90 U/L 40-150 (test code = 6768-6) AST (test code = 17 U/L 1919-8) ALT (test code = 11 U/L 1742-6) BRANDI (test code = BRANDI) Farm Operator ID - PIAYA L Lab Interpretation Abnormal (test code = 56432-4) [facility] [id number] 15:52:11 Test Item Value Reference Range Interpretation Comments Protein, Total (test 6.8 See_Comment [Autom ated code = 2885-2) message] The system which generated this result transmit levi reference range : 6.0 - 8.3 gm/dL . The reference range was not u sed to interpret th is result as normal/abnormal . Albumin (test code = 2.6 g/dL 3.5-5.0 L 90688-2) Total Bilirubin (test 0.3 mg/dL 0.2-1.2 code = 1974-05) Bilirubin, Direct 0.2 mg/dL 0.1-0.5 (test code = 1967-10) Alkaline Phosphatase 90 U/L 40-150 (test code = 6768-6) AST (test code = 17 U/L 1919-8) ALT (test code = 11 U/L 1742-6) BRANDI (test code = BRANDI) Farm Operator ID - PIAYA L Lab Interpretation Abnormal (test code = 31400-2) [facility] [id number] 15:52:11 Test Item Value Reference Range Interpretation Comments Protein, Total (test 6.8 See_Comment [Autom ated code = 2885-2) message] The system which generated this result transmit levi reference range : 6.0 - 8.3 gm/dL . The reference range was not u sed to interpret th is result as normal/abnormal . Albumin (test code = 2.6 g/dL 3.5-5.0 L 65949-3) Total Bilirubin (test 0.3 mg/dL 0.2-1.2 code = 1974-05) Bilirubin, Direct 0.2 mg/dL 0.1-0.5 (test code = 1967-10) Alkaline Phosphatase 90 U/L 40-150 (test code = 6768-6) AST (test code = 17 U/L 5-34 1920-8) ALT (test code = 11 U/L 655 1742-6) BRANDI (test code = BRANDI) Farm Operator ID - PIAYA L Lab Interpretation Abnormal (test code = 57857-6) [facility] [id number] 15:52:11 Test Item Value Reference Range Interpretation Comments Protein, Total (test 6.8 See_Comment [Autom ated code = 2885-2) message] The system which generated this result transmit levi reference range : 6.0 - 8.3 gm/dL . The reference range was not u sed to interpret th is result as normal/abnormal . Albumin (test code = 2.6 g/dL 3.5-5.0 L 69645-8) Total Bilirubin (test 0.3 mg/dL 0.2-1.2 code = 1974-05) Bilirubin, Direct 0.2 mg/dL 0.1-0.5 (test code = 1967-) Alkaline Phosphatase 90 U/L 40-150 (test code = 6768-6) AST (test code = 17 U/L 5-34 1920-8) ALT (test code = 11 U/L 655 1742-6) BRANDI (test code = BRANDI) Farm Operator ID - PIAYA L Lab Interpretation Abnormal (test code = 02022-5) [facility] [id number] 15:52:11 Test Item Value Reference Range Interpretation Comments Protein, Total (test 6.8 See_Comment [Autom ated code = 2885-2) message] The system which generated this result transmit levi reference range : 6.0 - 8.3 gm/dL . The reference range was not u sed to interpret th is result as normal/abnormal . Albumin (test code = 2.6 g/dL 3.5-5.0 L 57542-2) Total Bilirubin (test 0.3 mg/dL 0.2-1.2 code = 1974-) Bilirubin, Direct 0.2 mg/dL 0.1-0.5 (test code = 1967-) Alkaline Phosphatase 90 U/L 40-150 (test code = 6768-6) AST (test code = 17 U/L 5-34 1920-8) ALT (test code = 11 U/L 6-55 1742-6) BRANDI (test code = BRANDI) Farm Operator ID - PIAYA L Lab Interpretation Abnormal (test code = 95902-6) [facility] [id number] 15:52:11 Test Item Value Reference Range Interpretation Comments Protein, Total (test 6.8 See_Comment [Autom ated code = 2885-2) message] The system which generated this result transmit levi reference range : 6.0 - 8.3 gm/dL . The reference range was not u sed to interpret th is result as normal/abnormal . Albumin (test code = 2.6 g/dL 3.5-5.0 L 37263-3) Total Bilirubin (test 0.3 mg/dL 0.2-1.2 code = 1974-05) Bilirubin, Direct 0.2 mg/dL 0.1-0.5 (test code = 1967-10) Alkaline Phosphatase 90 U/L 40-150 (test code = 6768-6) AST (test code = 17 U/L 1919-8) ALT (test code = 11 U/L 6 1742-6) BRANDI (test code = BRANDI) Farm Operator ID - PIAYA L Lab Interpretation Abnormal (test code = 05077-6) [facility] [id number] 15:52:11 Test Item Value Reference Range Interpretation Comments Protein, Total (test 6.8 See_Comment [Autom ated code = 2885-2) message] The system which generated this result transmit levi reference range : 6.0 - 8.3 gm/dL . The reference range was not u sed to interpret th is result as normal/abnormal . Albumin (test code = 2.6 g/dL 3.5-5.0 L 56517-8) Total Bilirubin (test 0.3 mg/dL 0.2-1.2 code = 1974-) Bilirubin, Direct 0.2 mg/dL 0.1-0.5 (test code = 1967-) Alkaline Phosphatase 90 U/L 40-150 (test code = 6768-6) AST (test code = 17 U/L 5-34 1920-8) ALT (test code = 11 U/L 6-55 1742-6) BRANDI (test code = BRANDI) Farm Operator ID - PIAYA L Lab Interpretation Abnormal (test code = 15233-0) [facility] [id number] 15:52:11 Test Item Value Reference Range Interpretation Comments Protein, Total (test 6.8 See_Comment [Autom ated code = 2885-2) message] The system which generated this result transmit levi reference range : 6.0 - 8.3 gm/dL . The reference range was not u sed to interpret th is result as normal/abnormal . Albumin (test code = 2.6 g/dL 3.5-5.0 L 79606-1) Total Bilirubin (test 0.3 mg/dL 0.2-1.2 code = 1974-05) Bilirubin, Direct 0.2 mg/dL 0.1-0.5 (test code = 1967-10) Alkaline Phosphatase 90 U/L 40-150 (test code = 6768-6) AST (test code = 17 U/L 192-8) ALT (test code = 11 U/L 174-6) BRANDI (test code = BRANDI) Farm Operator ID - PIAYA L Lab Interpretation Abnormal (test code = 83134-3) [facility] [id number] 15:52:11 Test Item Value Reference Range Interpretation Comments Protein, Total (test 6.8 See_Comment [Autom ated code = 2885-2) message] The system which generated this result transmit levi reference range : 6.0 - 8.3 gm/dL . The reference range was not u sed to interpret th is result as normal/abnormal . Albumin (test code = 2.6 g/dL 3.5-5.0 L 25316-4) Total Bilirubin (test 0.3 mg/dL 0.2-1.2 code = 1974-05) Bilirubin, Direct 0.2 mg/dL 0.1-0.5 (test code = 1967-) Alkaline Phosphatase 90 U/L 40-150 (test code = 6768-6) AST (test code = 17 U/L 5-34 1920-8) ALT (test code = 11 U/L - 1742-6) BRANDI (test code = BRANDI) Farm Operator ID - PIAYA L Lab Interpretation Abnormal (test code = 80810-9) [facility] [id number] 15:52:11 Test Item Value Reference Range Interpretation Comments Protein, Total (test 6.8 See_Comment [Autom ated code = 2885-2) message] The system which generated this result transmit levi reference range : 6.0 - 8.3 gm/dL . The reference range was not u sed to interpret th is result as normal/abnormal . Albumin (test code = 2.6 g/dL 3.5-5.0 L 82176-0) Total Bilirubin (test 0.3 mg/dL 0.2-1.2 code = 1974-) Bilirubin, Direct 0.2 mg/dL 0.1-0.5 (test code = 1967-) Alkaline Phosphatase 90 U/L 40-150 (test code = 6768-6) AST (test code = 17 U/L 192-8) ALT (test code = 11 U/L 1742-6) BRANDI (test code = BRANDI) Farm Operator ID - PIAYA L Lab Interpretation Abnormal (test code = 56084-2) [facility] [id number] 15:52:11 Test Item Value Reference Range Interpretation Comments Protein, Total (test 6.8 See_Comment [Autom ated code = 2885-2) message] The system which generated this result transmit levi reference range : 6.0 - 8.3 gm/dL . The reference range was not u sed to interpret th is result as normal/abnormal . Albumin (test code = 2.6 g/dL 3.5-5.0 L 11512-8) Total Bilirubin (test 0.3 mg/dL 0.2-1.2 code = 1974-) Bilirubin, Direct 0.2 mg/dL 0.1-0.5 (test code = 1967-) Alkaline Phosphatase 90 U/L 40-150 (test code = 6768-6) AST (test code = 17 U/L 5-34 1920-8) ALT (test code = 11 U/L 55 1742-6) BRANDI (test code = BRANDI) Farm Operator ID - PIAYA L Lab Interpretation Abnormal (test code = 29706-6) [facility] [id number] 15:52:11 Test Item Value Reference Range Interpretation Comments Protein, Total (test 6.8 See_Comment [Autom ated code = 2885-2) message] The system which generated this result transmit levi reference range : 6.0 - 8.3 gm/dL . The reference range was not u sed to interpret th is result as normal/abnormal . Albumin (test code = 2.6 g/dL 3.5-5.0 L 46114-3) Total Bilirubin (test 0.3 mg/dL 0.2-1.2 code = 1975-2) Bilirubin, Direct 0.2 mg/dL 0.1-0.5 (test code = 1968-7) Alkaline Phosphatase 90 U/L 40-150 (test code = 6768-6) AST (test code = 17 U/L 5-34 1920-8) ALT (test code = 11 U/L 6-55 1742-6) BRANDI (test code = BRANDI) Farm Operator ID - LIANA L Lab Interpretation Abnormal (test code = 51475-7) [facility] [id number] 15:52:11 Test Item Value Reference Range Interpretation [...] (SGPT) (BEAKER) (test code = 11 U/L -55 347) Farm Operator ID - LIANA LHeparin kfnlbvhm6993-38-46 12:21:31 Test Item Value Reference Range Interpretation Comments Heparin Ab (test code Negative Negative = 3267-2) Heparin Antibody 0.247 <0.400 Optical Density (test code = 2659) 4T Total Score (test 4 code = 2661) BRANDI (test code = BRANDI) Probability of HIT based on scoring system: 6-8 = High probability; 4-5 = intermediate probability; 0-3 = low probability [facility] [id number] 12:21:31 Test Item Value Reference Range Interpretation Comments Heparin Ab (test code Negative Negative = 3267-2) Heparin Antibody 0.247 <0.400 Optical Density (test code = 2659) 4T Total Score (test 4 code = 2661) BRANDI (test code = BRANDI) Probability of HIT based on scoring system: 6-8 = High probability; 4-5 = intermediate probability; 0-3 = low probability [facility] [id number] 12:21:31 Test Item Value Reference Range Interpretation Comments Heparin Ab (test code Negative Negative = 3267-2) Heparin Antibody 0.247 <0.400 Optical Density (test code = 2659) 4T Total Score (test 4 code = 2661) BRANDI (test code = BRANDI) Probability of HIT based on scoring system: 6-8 = High probability; 4-5 = intermediate probability; 0-3 = low probability [facility] awdrszfq8304-92-15 12:21:31 Test Item Value Reference Range Interpretation Comments Heparin Ab (test code Negative Negative = 3267-2) Heparin Antibody 0.247 <0.400 Optical Density (test code = 2659) 4T Total Score (test 4 code = 2661) BRANDI (test code = BRANDI) Probability of HIT based on scoring system: 6-8 = High probability; 4-5 = intermediate probability; 0-3 = low probability [facility] efppghaf2022-62-63 12:21:31 Test Item Value Reference Range Interpretation Comments Heparin Ab (test code Negative Negative = 3267-2) Heparin Antibody 0.247 <0.400 Optical Density (test code = 2659) 4T Total Score (test 4 code = 2661) BRANDI (test code = BRANDI) Probability of HIT based on scoring system: 6-8 = High probability; 4-5 = intermediate probability; 0-3 = low probability [facility] [id number] 12:21:31 Test Item Value Reference Range Interpretation Comments Heparin Ab (test code Negative Negative = 3267-2) Heparin Antibody 0.247 <0.400 Optical Density (test code = 2659) 4T Total Score (test 4 code = 2661) BRANDI (test code = BRANDI) Probability of HIT based on scoring system: 6-8 = High probability; 4-5 = intermediate probability; 0-3 = low probability [facility] [id number] 12:21:31 Test Item Value Reference Range Interpretation Comments Heparin Ab (test code Negative Negative = 3267-2) Heparin Antibody 0.247 <0.400 Optical Density (test code = 2659) 4T Total Score (test 4 code = 2661) BRANDI (test code = BRANDI) Probability of HIT based on scoring system: 6-8 = High probability; 4-5 = intermediate probability; 0-3 = low probability [facility] kkedcvzn7595-07-26 12:21:31 Test Item Value Reference Range Interpretation Comments Heparin Ab (test code Negative Negative = 3267-2) Heparin Antibody 0.247 <0.400 Optical Density (test code = 2659) 4T Total Score (test 4 code = 2661) BRANDI (test code = BRANDI) Probability of HIT based on scoring system: 6-8 = High probability; 4-5 = intermediate probability; 0-3 = low probability [facility] [id number] 12:21:31 Test Item Value Reference Range Interpretation Comments Heparin Ab (test code Negative Negative = 3267-2) Heparin Antibody 0.247 <0.400 Optical Density (test code = 2659) 4T Total Score (test 4 code = 2661) BRANDI (test code = BRANDI) Probability of HIT based on scoring system: 6-8 = High probability; 4-5 = intermediate probability; 0-3 = low probability [facility] wqznkspt2009-43-52 12:21:31 Test Item Value Reference Range Interpretation Comments Heparin Ab (test code Negative Negative = 3267-2) Heparin Antibody 0.247 <0.400 Optical Density (test code = 2659) 4T Total Score (test 4 code = 2661) BRANDI (test code = BRANDI) Probability of HIT based on scoring system: 6-8 = High probability; 4-5 = intermediate probability; 0-3 = low probability [facility] [id number] 12:21:31 Test Item Value Reference Range Interpretation Comments Heparin Ab (test code Negative Negative = 3267-2) Heparin Antibody 0.247 <0.400 Optical Density (test code = 2659) 4T Total Score (test 4 code = 2661) BRANDI (test code = BRANDI) Probability of HIT based on scoring system: 6-8 = High probability; 4-5 = intermediate probability; 0-3 = low probability [facility] sngozaur8029-01-04 12:21:31 Test Item Value Reference Range Interpretation Comments Heparin Ab (test code Negative Negative = 3267-2) Heparin Antibody 0.247 <0.400 Optical Density (test code = 2659) 4T Total Score (test 4 code = 2661) BRANDI (test code = BRANDI) Probability of HIT based on scoring system: 6-8 = High probability; 4-5 = intermediate probability; 0-3 = low probability [facility] [id number] 12:21:31 Test Item Value Reference Range Interpretation Comments Heparin Ab (test code Negative Negative = 3267-2) Heparin Antibody 0.247 <0.400 Optical Density (test code = 2659) 4T Total Score (test 4 code = 2661) BRANDI (test code = BRANDI) Probability of HIT based on scoring system: 6-8 = High probability; 4-5 = intermediate probability; 0-3 = low probability [facility] [id number] 12:21:31 Test Item Value Reference Range Interpretation Comments Heparin Ab (test code Negative Negative = 3267-2) Heparin Antibody 0.247 <0.400 Optical Density (test code = 2659) 4T Total Score (test 4 code = 2661) BRANDI (test code = BRANDI) Probability of HIT based on scoring system: 6-8 = High probability; 4-5 = intermediate probability; 0-3 = low probability [facility] CenterHEPARIN [id number] 12:21:31 Test Item Value Reference Range Interpretation Comments HEPARIN ANTIBODY (BEAKER) (test code Negative Negative = 646) HEPARIN ANTIBODY OD (BEAKER) (test 0.247 <0.400 code = 2659) 4T TOTAL SCORE (BEAKER) (test code = 4 2661) Probability of HIT based on scoring system: 6-8 = High probability; 4-5 = intermediate probability; 0-3 = low probabilityABORH, [id number] 08:07:00 Test Item Value Reference Range Interpretation Comments ABO Grouping (test code = 2588) O Rh Factor (test code = 2589) [facility], [id number] 08:07:00 Test Item Value Reference Range Interpretation Comments ABO Grouping (test code = 2588) O Rh Factor (test code = 2589) [facility], [id number] 08:07:00 Test Item Value Reference Range Interpretation Comments ABO Grouping (test code = 2588) O Rh Factor (test code = 2589) [facility], [id number] 08:07:00 Test Item Value Reference Range Interpretation Comments ABO Grouping (test code = 2588) O Rh Factor (test code = 2589) [facility], [id number] 08:07:00 Test Item Value Reference Range Interpretation Comments ABO Grouping (test code = 2588) O Rh Factor (test code = 2589) [facility], [id number] 08:07:00 Test Item Value Reference Range Interpretation Comments ABO Grouping (test code = 2588) O Rh Factor (test code = 2589) [facility], [id number] 08:07:00 Test Item Value Reference Range Interpretation Comments ABO Grouping (test code = 2588) O Rh Factor (test code = 2589) [facility], [id number] 08:07:00 Test Item Value Reference Range Interpretation Comments ABO Grouping (test code = 2588) O Rh Factor (test code = 2589) [facility], [id number] 08:07:00 Test Item Value Reference Range Interpretation Comments ABO Grouping (test code = 2588) O Rh Factor (test code = 2589) [facility], [id number] 08:07:00 Test Item Value Reference Range Interpretation Comments ABO Grouping (test code = 2588) O Rh Factor (test code = 2589) [facility], [id number] 08:07:00 Test Item Value Reference Range Interpretation Comments ABO Grouping (test code = 2588) O Rh Factor (test code = 2589) [facility], [id number] 08:07:00 Test Item Value Reference Range Interpretation Comments ABO Grouping (test code = 2588) O Rh Factor (test code = 2589) [facility], [id number] 08:07:00 Test Item Value Reference Range Interpretation Comments ABO Grouping (test code = 2588) O Rh Factor (test code = 2589) [facility], [id number] 08:07:00 Test Item Value Reference Range Interpretation Comments ABO Grouping (test code = 2588) O Rh Factor (test code = 2589) [facility] [id number] 05:19:52 Test Item Value Reference Range Interpretation [...] S NOT APPLICABLE FOR DIALYSIS PATIEN TS. Farm Operator ID - PIKEZIA VPFGIUAIRCP7695-35-45 05:09:04 Test Item Value Reference Range Interpretation Comments PHOSPHORUS (BEAKER) (test code = 4.1 mg/dL 2.3-4.7 604) Farm Operator ID - LIANA [id number] 05:09:03 Test Item Value Reference Range Interpretation Comments MAGNESIUM (BEAKER) (test code = 2.0 mg/dL 1.6-2.6 627) Farm Operator ID - PIAYA LPT/[id number] 04:53:34 Test Item Value Reference Interpretation Comments [...] PTT (test code = 32.5 See_Comment [Automated 03010-6) message] The system which generated this result [...] valves. Lab Interpretation Normal (test code = 21427-8) [facility] CenterPT/[id number] 04:53:34 Test Item Value Reference Interpretation Comments [...] PTT (test code = 32.5 See_Comment [Automated 21778-9) message] The system which generated this result [...] valves. Lab Interpretation Normal (test code = 37402-3) [facility] CenterPT/[id number] 04:53:34 Test Item Value Reference Interpretation Comments [...] PTT (test code = 32.5 See_Comment [Automated 91610-9) message] The system which generated this result [...] valves. Lab Interpretation Normal (test code = 01156-1) [facility] CenterPT/[id number] 04:53:34 Test Item Value Reference Interpretation Comments [...] PTT (test code = 32.5 See_Comment [Automated 58442-8) message] The system which generated this result [...] valves. Lab Interpretation Normal (test code = 04758-0) [facility]PT/[id number] 04:53:34 Test Item Value Reference Interpretation Comments [...] PTT (test code = 32.5 See_Comment [Automated 93604-0) message] The system which generated this result [...] valves. Lab Interpretation Normal (test code = 84589-3) [facility]PT/[id number] 04:53:34 Test Item Value Reference Interpretation Comments [...] PTT (test code = 32.5 See_Comment [Automated 25228-9) message] The system which generated this result [...] valves. Lab Interpretation Normal (test code = 31218-4) [facility] CenterPT/[id number] 04:53:34 Test Item Value Reference Interpretation Comments Range Protime (test code = 13.7 See_Comment [Autom ated Joppel2-2) message] The system which generated this result transmitted reference range : 11.9 - 14.2 seconds. The reference range was not used to interpret this result as normal/abnormal . INR (test code = 1.07 See_Comment [Automated Terrafugia1-6) message] The system which generated this result transmitted reference range : <=5.90. The reference range was not used to interpret this result as normal/abnormal . PTT (test code = 32.5 See_Comment [Automated 80977-1) message] The system which generated this result [...] valves. Lab Interpretation Normal (test code = 69388-3) [facility]PT/[id number] 04:53:34 Test Item Value Reference Interpretation Comments Range Protime (test code = 13.7 See_Comment [Autom ated 5902-2) message] The system which generated this result transmitted reference range : 11.9 - 14.2 seconds. The reference range was not used to interpret this result as normal/abnormal . INR (test code = 1.07 See_Comment [Automated 8221-6) message] The system which generated this result transmitted reference range : <=5.90. The reference range was not used to interpret this result as normal/abnormal . PTT (test code = 32.5 See_Comment [Automated 87011-9) message] The system which generated this result [...] valves. Lab Interpretation Normal (test code = 90244-3) [facility] CenterPT/[id number] 04:53:34 Test Item Value Reference Interpretation Comments Range Protime (test code = 13.7 See_Comment [Autom ated 5902-2) message] The system which generated this result transmitted reference range : 11.9 - 14.2 seconds. The reference range was not used to interpret this result as normal/abnormal . INR (test code = 1.07 See_Comment [Automated 0511-6) message] The system which generated this result transmitted reference range : <=5.90. The reference range was not used to interpret this result as normal/abnormal . PTT (test code = 32.5 See_Comment [Automated 76705-9) message] The system which generated this result [...] valves. Lab Interpretation Normal (test code = 55752-7) [facility]PT/mORH9656-11-37 04:53:34 Test Item Value Reference Interpretation Comments [...] PTT (test code = 32.5 See_Comment [Automated 07672-1) message] The system which generated this result [...] valves. Lab Interpretation Normal (test code = 18106-9) [facility] CenterPT/[id number] 04:53:34 Test Item Value Reference Interpretation Comments [...] PTT (test code = 32.5 See_Comment [Automated 81400-7) message] The system which generated this result [...] valves. Lab Interpretation Normal (test code = 84739-4) [facility] CenterPT/[id number] 04:53:34 Test Item Value Reference Interpretation Comments [...] PTT (test code = 32.5 See_Comment [Automated 99724-9) message] The system which generated this result [...] valves. Lab Interpretation Normal (test code = 71683-6) [facility]PT/hHHD3120-15-28 04:53:34 Test Item Value Reference Interpretation Comments [...] PTT (test code = 32.5 See_Comment [Automated 03871-6) message] The system which generated this result [...] valves. Lab Interpretation Normal (test code = 18403-8) [facility] CenterPT/[id number] 04:53:34 Test Item Value Reference Interpretation Comments [...] PTT (test code = 32.5 See_Comment [Automated 23945-7) message] The system which generated this result [...] valves. Lab Interpretation Normal (test code = 98651-0) [facility] CenterPT/POMV6403-71-08 04:53:34 Test Item Value Reference Range Interpretation [...] mechanical heart valves.CBC W/PLT COUNT & AUTO [id number] 04:46:52 Test Item Value Reference Range Interpretation [...] PERCENT (BEAKER) (test code = 2801) POCT-GLUCOSE [id number] 11:21:11 Test Item Value Reference Range Interpretation Comments POC-GLUCOSE METER 204 mg/dL 70-110 H : TESTED A T [facility] 6720 (BEAKER) (test code = [place]UD[place], 1538) [address]: Farm Operator/Techni kelle ID = [id number] for Meeta Mcfarlane POCT-GLUCOSE [id number] 07:42:50 Test Item Value Reference Range Interpretation Comments POC-GLUCOSE METER 226 mg/dL 70-110 H : TESTED A T [facility] 67[facility] (BEAKER) (test code = [facility] [place] [facility], 1538) [address]: Farm Operator/Techni kelle ID = [id number] for Meeta Mcfarlane BASIC METABOLIC [id number] 05:13:30 Test Item Value Reference Range Interpretation [...] S NOT APPLICABLE FOR DIALYSIS PATIEN TS. Farm Operator ID - LIANA IFFUQPAYBJR6467-54-95 05:11:53 Test Item Value Reference Range Interpretation Comments PHOSPHORUS (BEAKER) (test code = 3.3 mg/dL 2.3-4.7 604) Farm Operator ID - LIANA EKIATIEVZV8493-28-83 05:11:52 Test Item Value Reference Range Interpretation Comments MAGNESIUM (BEAKER) (test code = 2.0 mg/dL 1.6-2.6 627) Farm Operator ID - LIANA LCBC W/PLT COUNT & AUTO [id number] 04:23:17 Test Item Value Reference Range Interpretation [...] PERCENT (BEAKER) (test code = 2801) POCT-GLUCOSE [id number] 17:21:48 Test Item Value Reference Range Interpretation Comments POC-GLUCOSE METER 209 mg/dL 70-110 H : TESTED A T [facility] 67[facility] (BEAKER) (test code = [facility] [place] [facility], 1538) [address]: Farm Operator/Techni kelle ID = [id number] for PADMINI ALMANZAR POCT-GLUCOSE [id number] 12:56:45 Test Item Value Reference Range Interpretation Comments POC-GLUCOSE METER 81 mg/dL 70-110 : TESTED A T [facility] 6720 (AKER) (test code = [facility] [employer] [facility], 1538) [address]: Farm Operator/Techni kelle ID = [id number] for PADMINI GRAY Pewuntny1525-56-29 09:21:04 Test Item Value Reference Range Interpretation Comments Ferritin (test code = 1418.54 ng/mL 5.00-275.00 H 2276-4) BRANDI (test code = BRANDI) Farm Operator ID - HIEN M Lab Interpretation (test Abnormal code = 23209-2) [facility] CenterFerritin[facility] 09:21:04 Test Item Value Reference Range Interpretation Comments Ferritin (test code = 1418.54 ng/mL 5.00-275.00 H 2276-4) BRANDI (test code = BRANDI) Farm Operator ID - HIEN M Lab Interpretation (test Abnormal code = 24473-0) [facility] 09:21:04 Test Item Value Reference Range Interpretation Comments Ferritin (test code = 1418.54 ng/mL 5.00-275.00 H 2276-4) BRANDI (test code = BRANDI) Farm Operator ID - HIEN M Lab Interpretation (test Abnormal code = 19294-2) [facility] 09:21:04 Test Item Value Reference Range Interpretation Comments Ferritin (test code = 1418.54 ng/mL 5.00-275.00 H 2276-4) BRANDI (test code = BRANDI) Farm Operator ID - HIEN M Lab Interpretation (test Abnormal code = 48702-9) [facility]2022-03-12 09:21:04 Test Item Value Reference Range Interpretation Comments Ferritin (test code = 1418.54 ng/mL 5.00-275.00 H 2276-4) BRANDI (test code = BRANDI) Farm Operator ID - HIEN M Lab Interpretation (test Abnormal code = 74281-6) [facility] 09:21:04 Test Item Value Reference Range Interpretation Comments Ferritin (test code = 1418.54 ng/mL 5.00-275.00 H 2276-4) BRANDI (test code = BRANDI) Farm Operator ID - HIEN M Lab Interpretation (test Abnormal code = 06818-5) [facility] 09:21:04 Test Item Value Reference Range Interpretation Comments Ferritin (test code = 1418.54 ng/mL 5.00-275.00 H 2276-4) BRANDI (test code = BRANDI) Farm Operator ID - HIEN M Lab Interpretation (test Abnormal code = 95137-2) [facility] 09:21:04 Test Item Value Reference Range Interpretation Comments Ferritin (test code = 1418.54 ng/mL 5.00-275.00 H 2276-4) BRANDI (test code = BRANDI) Farm Operator ID - HIEN M Lab Interpretation (test Abnormal code = 84208-8) [facility] 09:21:04 Test Item Value Reference Range Interpretation Comments Ferritin (test code = 1418.54 ng/mL 5.00-275.00 H 2276-4) BRANDI (test code = BRANDI) Farm Operator ID - HIEN M Lab Interpretation (test Abnormal code = 87190-0) [facility]2022-03-12 09:21:04 Test Item Value Reference Range Interpretation Comments Ferritin (test code = 1418.54 ng/mL 5.00-275.00 H 2276-4) BRANDI (test code = BRANDI) Farm Operator ID - HIEN M Lab Interpretation (test Abnormal code = 31852-9) [facility] 09:21:04 Test Item Value Reference Range Interpretation Comments Ferritin (test code = 1418.54 ng/mL 5.00-275.00 H 2276-4) BRANDI (test code = BRANDI) Farm Operator ID - HIEN M Lab Interpretation (test Abnormal code = 18446-4) [facility] 09:21:04 Test Item Value Reference Range Interpretation Comments Ferritin (test code = 1418.54 ng/mL 5.00-275.00 H 2276-4) BRANDI (test code = BRANDI) Farm Operator ID - HIEN M Lab Interpretation (test Abnormal code = 23680-0) [facility] 09:21:04 Test Item Value Reference Range Interpretation Comments Ferritin (test code = 1418.54 ng/mL 5.00-275.00 H 2276-4) BRANDI (test code = BRANDI) Farm Operator ID - HIEN M Lab Interpretation (test Abnormal code = 53657-5) [facility] 09:21:04 Test Item Value Reference Range Interpretation Comments Ferritin (test code = 1418.54 ng/mL 5.00-275.00 H 2276-4) BRANDI (test code = BRANDI) Farm Operator ID - HIEN M Lab Interpretation (test Abnormal code = 58216-8) [facility]ERR[facility]IN20[facility] 09:21:04 Test Item Value Reference Range Interpretation Comments FERRITIN (BEAKER) (test code = 1418.54 ng/mL 5.00-275.00 H 361) Farm Operator ID - HIEN Cyrus, TIBC, % sat. (without ferritin)2021-06-13 09:01:39 Test Item Value Reference Range Interpretation Comments Iron (test code = 2498-4) 75.0 ug/dL 40.0-160.0 TIBC (test code = 2500-7) 145 ug/dL 250-450 L Iron % Saturation (test 52 % 20-55 code = 2502-3) BRANDI (test code = BRANDI) Farm Operator ID - HIEN M Lab Interpretation (test Abnormal code = 47108-9) [facility], TIBC, % sat. (without ferritin)2021-06-13 09:01:39 Test Item Value Reference Range Interpretation Comments Iron (test code = 2498-4) 75.0 ug/dL 40.0-160.0 TIBC (test code = 2500-7) 145 ug/dL 250-450 L Iron % Saturation (test 52 % 20-55 code = 2502-3) BRANDI (test code = BRANDI) Farm Operator ID - HIEN M Lab Interpretation (test Abnormal code = 31946-5) [facility], TIBC, % sat. (without ferritin)2021-06-13 09:01:39 Test Item Value Reference Range Interpretation Comments Iron (test code = 2498-4) 75.0 ug/dL 40.0-160.0 TIBC (test code = 2500-7) 145 ug/dL 250-450 L Iron % Saturation (test 52 % 20-55 code = 2502-3) BRANDI (test code = BRANDI) Farm Operator ID - HIEN M Lab Interpretation (test Abnormal code = 49186-3) [facility], TIBC, % sat. (without ferritin)2021-06-13 09:01:39 Test Item Value Reference Range Interpretation Comments Iron (test code = 2498-4) 75.0 ug/dL 40.0-160.0 TIBC (test code = 2500-7) 145 ug/dL 250-450 L Iron % Saturation (test 52 % 20-55 code = 2502-3) BRANDI (test code = BRANDI) Farm Operator ID - HIEN M Lab Interpretation (test Abnormal code = 37873-0) [facility], TIBC, % sat. (without ferritin)2021-06-13 09:01:39 Test Item Value Reference Range Interpretation Comments Iron (test code = 2498-4) 75.0 ug/dL 40.0-160.0 TIBC (test code = 2500-7) 145 ug/dL 250-450 L Iron % Saturation (test 52 % 20-55 code = 2502-3) BRANDI (test code = BRANDI) Farm Operator ID - HIEN M Lab Interpretation (test Abnormal code = 51852-6) [facility], TIBC, % sat. (without ferritin)2021-06-13 09:01:39 Test Item Value Reference Range Interpretation Comments Iron (test code = 2498-4) 75.0 ug/dL 40.0-160.0 TIBC (test code = 2500-7) 145 ug/dL 250-450 L Iron % Saturation (test 52 % 20-55 code = 2502-3) BRANDI (test code = BRANDI) Farm Operator ID - HIEN M Lab Interpretation (test Abnormal code = 64415-1) [facility], TIBC, % sat. (without ferritin)2021-06-13 09:01:39 Test Item Value Reference Range Interpretation Comments Iron (test code = 2498-4) 75.0 ug/dL 40.0-160.0 TIBC (test code = 2500-7) 145 ug/dL 250-450 L Iron % Saturation (test 52 % 20-55 code = 2502-3) BRANDI (test code = BRANDI) Farm Operator ID - HIEN M Lab Interpretation (test Abnormal code = 78890-1) [facility], TIBC, % sat. (without ferritin)2021-06-13 09:01:39 Test Item Value Reference Range Interpretation Comments Iron (test code = 2498-4) 75.0 ug/dL 40.0-160.0 TIBC (test code = 2500-7) 145 ug/dL 250-450 L Iron % Saturation (test 52 % 20-55 code = 2502-3) BRANDI (test code = BRANDI) Farm Operator ID - HIEN M Lab Interpretation (test Abnormal code = 24249-3) [facility], TIBC, % sat. (without ferritin)2021-06-13 09:01:39 Test Item Value Reference Range Interpretation Comments Iron (test code = 2498-4) 75.0 ug/dL 40.0-160.0 TIBC (test code = 2500-7) 145 ug/dL 250-450 L Iron % Saturation (test 52 % 20-55 code = 2502-3) BRANDI (test code = BRANDI) Farm Operator ID - HIEN M Lab Interpretation (test Abnormal code = 77821-9) [facility], TIBC, % sat. (without ferritin)2021-06-13 09:01:39 Test Item Value Reference Range Interpretation Comments Iron (test code = 2498-4) 75.0 ug/dL 40.0-160.0 TIBC (test code = 2500-7) 145 ug/dL 250-450 L Iron % Saturation (test 52 % 20-55 code = 2502-3) BRANDI (test code = BRANDI) Farm Operator ID - HIEN M Lab Interpretation (test Abnormal code = 23608-5) [facility], TIBC, % sat. (without ferritin)2021-06-13 09:01:39 Test Item Value Reference Range Interpretation Comments Iron (test code = 2498-4) 75.0 ug/dL 40.0-160.0 TIBC (test code = 2500-7) 145 ug/dL 250-450 L Iron % Saturation (test 52 % 20-55 code = 2502-3) BRANDI (test code = BRANDI) Farm Operator ID - HIEN M Lab Interpretation (test Abnormal code = 23705-2) [facility], TIBC, % sat. (without ferritin)2021-06-13 09:01:39 Test Item Value Reference Range Interpretation Comments Iron (test code = 2498-4) 75.0 ug/dL 40.0-160.0 TIBC (test code = 2500-7) 145 ug/dL 250-450 L Iron % Saturation (test 52 % 20-55 code = 2502-3) BRANDI (test code = BRANDI) Farm Operator ID - HIEN M Lab Interpretation (test Abnormal code = 30664-6) [facility], TIBC, % sat. (without ferritin)2021-06-13 09:01:39 Test Item Value Reference Range Interpretation Comments Iron (test code = 2498-4) 75.0 ug/dL 40.0-160.0 TIBC (test code = 2500-7) 145 ug/dL 250-450 L Iron % Saturation (test 52 % 20-55 code = 2502-3) BRANDI (test code = BRANDI) Farm Operator ID - HIEN M Lab Interpretation (test Abnormal code = 37260-6) [facility], TIBC, % sat. (without ferritin)2021-06-13 09:01:39 Test Item Value Reference Range Interpretation Comments Iron (test code = 2498-4) 75.0 ug/dL 40.0-160.0 TIBC (test code = 2500-7) 145 ug/dL 250-450 L Iron % Saturation (test 52 % 20-55 code = 2502-3) BRANDI (test code = BRANDI) Farm Operator NORAH Hernandes Lab Interpretation (test Abnormal code = 44333-9) [facility], % SAT. (WITHOUT FERRITIN)2021-06-13 09:01:39 Test Item Value Reference Range Interpretation Comments IRON (BEAKER) (test code = 547) 75.0 ug/dL 40.0-160.0 TOTAL IRON BINDING CAPACITY 145 ug/dL 250-450 L (BEAKER) (test code = 769) IRON % SATURATION (2) (BEAKER) 52 % 20-55 (test code = 2590) Farm Operator NORAH STANFORD MPOCT-GLUCOSE [id number] 08:51:07 Test Item Value Reference Range Interpretation Comments POC-GLUCOSE METER 106 mg/dL 70-110 : TESTED A T [facility] (BEAKER) (test code = [place], 1538) [address]: Farm Operator/Techni kelle ID = [id number] for PADMINI ALMANZAR BASIC METABOLIC [id number] 04:21:54 Test Item Value Reference Range Interpretation [...] S NOT APPLICABLE FOR DIALYSIS PATIEN TS. Farm Operator NORAH STANFORD [id number] 04:17:34 Test Item Value Reference Range Interpretation Comments MAGNESIUM (BEAKER) (test code = 2.0 mg/dL 1.6-2.6 627) Farm Operator ID - HIEN LIRIANOKITJXKYFUQJ7320-20-88 04:17:34 Test Item Value Reference Range Interpretation Comments PHOSPHORUS (BEAKER) (test code = 3.1 mg/dL 2.3-4.7 604) Farm Operator ID - HIEN MCBC W/PLT COUNT & AUTO [id number] 03:49:10 Test Item Value Reference Range Interpretation [...] PERCENT (BEAKER) (test code = 2801) SARS-COV2/RT-PCR ([facility])2021-06-13 02:28:08 Test Item Value Reference Range Interpretation Comments SARS-COV2/RT-PCR (test code = Negative Negative 4292484) Negative result for this test determines that [...] false negatives.The limit of detection for this assayis 100 copies/mL.This SARS-CoV-2 test is a real-time [...] the FDA, the issued EUA will be effecti ve until the declaration that circumstances exist justifying the authorization of the emergency use of in vitro diagnostic tests for detection and/or diagnosis of COVID-19 is terminated under Section 564(b)(2) of the Act or the EUA is revoked under Section 564(g) of the Act.Testing was performed usingthe [place] SARS-CoV-2 assay.Fact Sheet for Healthcare Providers:https://www.DineInTime.BMdr/ct/RT SARS-CoV-2 HCP Fact Sheet 51- 615086.pdfFact Sheet for Healthcare Patients:https://www.DineInTime.BMdr/ct/RT SARS-CoV-2 Patient Fact Sheet EN 51-540222E5.pdfPOCT-GLUCOSE CMPUV7101-98-95 02:01:02 Test Item Value Reference Range Interpretation Comments POC-GLUCOSE METER 98 mg/dL 70-110 : TESTED A T [facility] 6720 (BEAKER) (test code = [facility], 1538) [address]: Farm Operator/Techni kelle ID = [id number] for SREEKANTH ROSS POCT-GLUCOSE [id number] 02:00:06 Test Item Value Reference Range Interpretation Comments POC-GLUCOSE METER 151 mg/dL 70-110 H : TESTED A T [facility] 6720 (BEAKER) (test code = [facility], 1538) 731[address]: Farm Operator/Techni kelle ID = [id number] for ALINE ROWE BLOOD [id number] 23:01:20 Test Item Value Reference Range Interpretation Comments CULTURE (BEAKER) (test No growth in 5 days code = 1095) BLOOD [id number] 23:01:19 Test Item Value Reference Range Interpretation Comments CULTURE (BEAKER) (test No growth in 5 days code = 1095) CT, BRAIN, WITHOUT [id number] 08:55:00Unlisted Reason for Exam - Click Yes and Enter Reason Below->No [facility] : 1955 [...] MDReport Verified Date/Time: 06/12/2021 08:55:52 Reading Location: [address] Neuro Reading Room POCT-GLUCOSE [id number] 07:42:49 Test Item Value Reference Range Interpretation Comments POC-GLUCOSE METER 113 mg/dL 70-110 H : TESTED A T [facility] 6720 (EnviroMissionAKER) (test code = [facility], 153) [address]: Farm Operator/Techni kelle ID = [id number] for Sheryl Enciso POCT-GLUCOSE [id number] 07:42:05 Test Item Value Reference Range Interpretation Comments POC-GLUCOSE METER 131 mg/dL 70-110 H : TESTED A T [facility] 6720 (BEAKER) (test code = [facility], 1538) 839[address]: Farm Operator/Techni kelle ID = [id number] for JI MONTAÑO POCT-GLUCOSE [id number] 07:32:16 Test Item Value Reference Range Interpretation Comments POC-GLUCOSE METER 127 mg/dL 70-110 H : TESTED A T [facility] 6720 (BEAKER) (test code = [facility]UDY [facility] [place], 1538) [address]: Farm Operator/Techni kelle ID = [id number] for GURINDER VILLA CT, CTANGIO [id number] 03:03:00Reason for exam:->Symptoms onset less than 6 hours and NIHSS 6 or greater [facility] : 1955 Sex: FFINAL [...] the film. IMPRESSION: No evidence of a koi of Pandey proximal branch vessel occlusion or [...] and interstitial pulmonary edema. Signed: Nikole Baron [facility] [facility] Verified Date/Time: 06/12/2021 03:03:56 [facility], CAROTID, [id number] 03:03:00Reason for exam:- >Symptoms onset less than 6 hours and NIHSS [address] [facility] : 1955 Sex: FFINAL REPORT CLINICAL [...] the film. IMPRESSION: No evidence of a koi of Pandey proximal branch vessel occlusion or [...] Nikole Baron Verified Date/Time: 06/12/2021 03:03:56 PROTHROMBIN TIME/[id number] 01:46:16 Test Item Value Reference Range Interpretation Comments PROTIME (BEAKER) 15.0 seconds 11.9-14.2 H (test code = 759) INR (BEAKER) (test 1.20 See_Comment [Automat ed message] code = 370) The system [employer] generated this result transmitted ref erence range: <=5.90. The reference range was not used to int erpret this result as normal/abnormal . RECOMMENDED COUMADIN/WARFARIN INR THERAPY RANGESSTANDARD DOSE: 2.0 - 3.0 Includes: PROPHYLAXIS for venous thrombosis, systemic embolization; TREATMENT for venous thrombosis and/or pulmonary embolus.HIGH RISK: Target INR is 2.5-3.5 for patients with mechanical heart valves.CBC W/PLT COUNT & AUTO [id number] 01:45:34 Test Item Value Reference Range Interpretation [...] (test code = 2801) CT, BRAIN, WITHOUT [id number] 01:38:00Unlisted Reason for Exam - Click Yes and Enter Reason Below->No [facility] : 1955 Sex: FFINAL [...] pg/ml See_Comment H [Automa levi code = 75912-8) message] The system which generated this result transmitted reference range : <=17. The reference range was not used to interpret this result as normal/abnormal . BRANDI (test code = Farm Operator ID - BRANDI) DBThe OIL AND GAS DRAFTER STAT High Sensitivity Troponin-I results should be used in conjunction with other diagnostic information such as ECG, clinical observations and information, and patient symptoms to aid in the diagnosis of CA. Lab Interpretation Abnormal (test code = 95896-6) [facility] Only[facility] 2021-06-12 01:35:31 Test Item Value Reference Range Interpretation Comments Troponin I HS (test 231 pg/ml See_Comment H [Automa levi code = 52423-8) message] The system which generated this result transmitted reference range : <=17. The reference range was not used to interpret this result as normal/abnormal . BRANDI (test code = Farm Operator ID - BRANDI) DBThe OIL AND GAS DRAFTER STAT High Sensitivity Troponin-I results should be used in conjunction with other diagnostic information such as ECG, clinical observations and information, and patient symptoms to aid in the diagnosis of CA. Lab Interpretation Abnormal (test code = 94052-0) [facility] ([facility] Only) 2021-06-12 01:35:31 Test Item Value Reference Range Interpretation Comments Troponin I HS (test 231 pg/ml See_Comment H [Automa levi code = 98768-4) message] The system which generated this result transmitted reference range : <=17. The reference range was not used to interpret this result as normal/abnormal . BRANDI (test code = Farm Operator ID - BRANDI) DBThe OIL AND GAS DRAFTER STAT High Sensitivity Troponin-I results should be used in conjunction with other diagnostic information such as ECG, clinical observations and information, and patient symptoms to aid in the diagnosis of CA. Lab Interpretation Abnormal (test code = 02036-8) [facility] ([facility] Only) 2021-06-12 01:35:31 Test Item Value Reference Range Interpretation Comments Troponin I HS (test 231 pg/ml See_Comment H [Automa levi code = 59769-4) message] The system which generated this result transmitted reference range : <=17. The reference range was not used to interpret this result as normal/abnormal . BRANDI (test code = Farm Operator ID - BRANDI) DBThe OIL AND GAS DRAFTER STAT High Sensitivity Troponin-I results should be used in conjunction with other diagnostic information such as ECG, clinical observations and information, and patient symptoms to aid in the diagnosis of CA. Lab Interpretation Abnormal (test code = 55781-8) [facility] ([facility]in Only) 2021-06-12 01:35:31 Test Item Value Reference Range Interpretation Comments Troponin I HS (test 231 pg/ml See_Comment H [Automa levi code = 42692-7) message] The system which generated this result transmitted reference range : <=17. The reference range was not used to interpret this result as normal/abnormal . BRANDI (test code = Farm Operator ID - BRANDI) DBThe OIL AND GAS DRAFTER STAT High Sensitivity Troponin-I results should be used in conjunction with other diagnostic information such as ECG, clinical observations and information, and patient symptoms to aid in the diagnosis of CA. Lab Interpretation Abnormal (test code = 01476-8) [facility] ([facility] 2021-06-12 01:35:31 Test Item Value Reference Range Interpretation Comments Troponin I HS (test 231 pg/ml See_Comment H [Automa levi code = 87262-8) message] The system which generated this result transmitted reference range : <=17. The reference range was not used to interpret this result as normal/abnormal . BRANDI (test code = Farm Operator ID - BRANDI) DBThe OIL AND GAS DRAFTER STAT High Sensitivity Troponin-I results should be used in conjunction with other diagnostic information such as ECG, clinical observations and information, and patient symptoms to aid in the diagnosis of CA. Lab Interpretation Abnormal (test code = 59495-0) [facility] ([facility] 2021-06-12 01:35:31 Test Item Value Reference Range Interpretation Comments Troponin I HS (test 231 pg/ml See_Comment H [Automa levi code = 07089-7) message] The system which generated this result transmitted reference range : <=17. The reference range was not used to interpret this result as normal/abnormal . BRANDI (test code = Farm Operator ID - BRANDI) DBThe OIL AND GAS DRAFTER STAT High Sensitivity Troponin-I results should be used in conjunction with other diagnostic information such as ECG, clinical observations and information, and patient symptoms to aid in the diagnosis of CA. Lab Interpretation Abnormal (test code = 27984-9) [facility] ([facility] 2021-06-12 01:35:31 Test Item Value Reference Range Interpretation Comments Troponin I HS (test 231 pg/ml See_Comment H [Automa levi code = 41096-0) message] The system which generated this result transmitted reference range : <=17. The reference range was not used to interpret this result as normal/abnormal . BRANDI (test code = Farm Operator ID - BRANDI) DBThe OIL AND GAS DRAFTER STAT High Sensitivity Troponin-I results should be used in conjunction with other diagnostic information such as ECG, clinical observations and information, and patient symptoms to aid in the diagnosis of CA. Lab Interpretation Abnormal (test code = 27653-4) [facility] ([facility] Only) 2021-06-12 01:35:31 Test Item Value Reference Range Interpretation Comments Troponin I HS (test 231 pg/ml See_Comment H [Automa levi code = 46535-5) message] The system which generated this result transmitted reference range : <=17. The reference range was not used to interpret this result as normal/abnormal . BRANDI (test code = Farm Operator ID - BRANDI) DBThe OIL AND GAS DRAFTER STAT High Sensitivity Troponin-I results should be used in conjunction with other diagnostic information such as ECG, clinical observations and information, and patient symptoms to aid in the diagnosis of CA. Lab Interpretation Abnormal (test code = 11623-0) [facility] 2021-06-12 01:35:31 Test Item Value Reference Range Interpretation Comments Troponin I HS (test 231 pg/ml See_Comment H [Automa levi code = 56644-8) message] The system which generated this result transmitted reference range : <=17. The reference range was not used to interpret this result as normal/abnormal . BRANDI (test code = Farm Operator ID - BRANDI) DBThe OIL AND GAS DRAFTER STAT High Sensitivity Troponin-I results should be used in conjunction with other diagnostic information such as ECG, clinical observations and information, and patient symptoms to aid in the diagnosis of CA. Lab Interpretation Abnormal (test code = 86678-5) [facility] 2021-06-12 01:35:31 Test Item Value Reference Range Interpretation Comments Troponin I HS (test 231 pg/ml See_Comment H [Automa levi code = 50725-0) message] The system which generated this result transmitted reference range : <=17. The reference range was not used to interpret this result as normal/abnormal . BRANDI (test code = Farm Operator ID - BRANDI) DBThe OIL AND GAS DRAFTER STAT High Sensitivity Troponin-I results should be used in conjunction with other diagnostic information such as ECG, clinical observations and information, and patient symptoms to aid in the diagnosis of CA. Lab Interpretation Abnormal (test code = 67684-8) [facility] 2021-06-12 01:35:31 Test Item Value Reference Range Interpretation Comments Troponin I HS (test 231 pg/ml See_Comment H [Automa levi code = 00781-6) message] The system which generated this result transmitted reference range : <=17. The reference range was not used to interpret this result as normal/abnormal . BRANDI (test code = Farm Operator ID - BRANDI) DBThe OIL AND GAS DRAFTER STAT High Sensitivity Troponin-I results should be used in conjunction with other diagnostic information such as ECG, clinical observations and information, and patient symptoms to aid in the diagnosis of CA. Lab Interpretation Abnormal (test code = 20825-8) [facility] 2021-06-12 01:35:31 Test Item Value Reference Range Interpretation Comments Troponin I HS (test 231 pg/ml See_Comment H [Automa levi code = 65838-2) message] The system which generated this result transmitted reference range : <=17. The reference range was not used to interpret this result as normal/abnormal . BRANDI (test code = Farm Operator ID - BRANDI) DBThe OIL AND GAS DRAFTER STAT High Sensitivity Troponin-I results should be used in conjunction with other diagnostic information such as ECG, clinical observations and information, and patient symptoms to aid in the diagnosis of CA. Lab Interpretation Abnormal (test code = 79813-8) [facility] 2021-06-12 01:35:31 Test Item Value Reference Range Interpretation Comments Troponin I HS (test 231 pg/ml See_Comment H [Automa levi code = 11923-5) message] The system which generated this result transmitted reference range : <=17. The reference range was not used to interpret this result as normal/abnormal . BRANDI (test code = Farm Operator ID - BRANDI) DBThe OIL AND GAS DRAFTER STAT High Sensitivity Troponin-I results should be used in conjunction with other diagnostic information such as ECG, clinical observations and information, and patient symptoms to aid in the diagnosis of CA. Lab Interpretation Abnormal (test code = 06368-7) [facility] TROPONIN [id number] 01:35:31 Test Item Value Reference Range Interpretation Comments HIGH SENSITIVITY 231 pg/ml See_Comment H [Automated message] TROPONIN I (test code The sy stem which = 8488684) generated this result transmitted ref erence range: <=17. Th e reference range was not used to int erpret this result as normal/abnormal . Farm Operator ID - DBThe OIL AND GAS DRAFTER STAT High Sensitivity Troponin-I results should be used in conjunctionwith other diagnostic information such as ECG, clinical observations and information, and patient symptoms to aid in the diagnosis of CA.BASIC METABOLIC [id number] 01:29:11 Test Item Value Reference Range Interpretation [...] S NOT APPLICABLE FOR DIALYSIS PATIEN TS. Farm Operator ID - [id number] 01:28:34 Test Item Value Reference Range Interpretation Comments PHOSPHORUS (BEAKER) 4.6 mg/dL 2.3-4.7 Specimen slightly (test code = 604) hemolyzed Farm Operator ID - [id number] 01:28:33 Test Item Value Reference Range Interpretation Comments MAGNESIUM (BEAKER) 2.2 mg/dL 1.6-2.6 Specimen slightly (test code = 627) hemolyzed Farm Operator ID - DBLactic acid, [id number] 01:26:32 Test Item Value Reference Range Interpretation Comments Lactate, Venous (test code = 0.87 mmol/L 0.50-2.20 2872) BRANDI (test code = BRANDI) Farm Operator ID - DB Lab Interpretation (test Normal code = 33007-1) [facility] [id number] 01:26:32 Test Item Value Reference Range Interpretation Comments Lactate, Venous (test code = 0.87 mmol/L 0.50-2.20 2872) BRANDI (test code = BRANDI) Farm Operator ID - DB Lab Interpretation (test Normal code = 02794-1) [facility], [id number] 01:26:32 Test Item Value Reference Range Interpretation Comments Lactate, Venous (test code = 0.87 mmol/L 0.50-2.20 2872) BRANDI (test code = BRANDI) Farm Operator ID - DB Lab Interpretation (test Normal code = 66085-0) [facility], [id number] 01:26:32 Test Item Value Reference Range Interpretation Comments Lactate, Venous (test code = 0.87 mmol/L 0.50-2.20 2872) BRANDI (test code = BRANDI) Farm Operator ID - DB Lab Interpretation (test Normal code = 61499-6) [facility], [id number] 01:26:32 Test Item Value Reference Range Interpretation Comments Lactate, Venous (test code = 0.87 mmol/L 0.50-2.20 2872) BRANDI (test code = BRANDI) Farm Operator ID - DB Lab Interpretation (test Normal code = 32802-5) [facility], [id number] 01:26:32 Test Item Value Reference Range Interpretation Comments Lactate, Venous (test code = 0.87 mmol/L 0.50-2.20 2872) BRANDI (test code = BRANDI) Farm Operator ID - DB Lab Interpretation (test Normal code = 02182-1) [facility], [id number] 01:26:32 Test Item Value Reference Range Interpretation Comments Lactate, Venous (test code = 0.87 mmol/L 0.50-2.20 2872) BRANDI (test code = BRANDI) Farm Operator ID - DB Lab Interpretation (test Normal code = 57146-6) [facility] CenterL[facility], [id number] 01:26:32 Test Item Value Reference Range Interpretation Comments Lactate, Venous (test code = 0.87 mmol/L 0.50-2.20 2872) BRANDI (test code = BRANDI) Farm Operator ID - DB Lab Interpretation (test Normal code = 20928-7) [facility], [id number] 01:26:32 Test Item Value Reference Range Interpretation Comments Lactate, Venous (test code = 0.87 mmol/L 0.50-2.20 2872) BRANDI (test code = BRANDI) Farm Operator ID - DB Lab Interpretation (test Normal code = 63215-2) [facility], [id number] 01:26:32 Test Item Value Reference Range Interpretation Comments Lactate, Venous (test code = 0.87 mmol/L 0.50-2.20 2872) BRANDI (test code = BRANDI) Farm Operator ID - DB Lab Interpretation (test Normal code = 99080-9) [facility], [id number] 01:26:32 Test Item Value Reference Range Interpretation Comments Lactate, Venous (test code = 0.87 mmol/L 0.50-2.20 2872) BRANDI (test code = BRANDI) Farm Operator ID - DB Lab Interpretation (test Normal code = 32969-3) [facility], [id number] 01:26:32 Test Item Value Reference Range Interpretation Comments Lactate, Venous (test code = 0.87 mmol/L 0.50-2.20 2872) BRANDI (test code = BRANDI) Farm Operator ID - DB Lab Interpretation (test Normal code = 14191-5) [facility], [id number] 01:26:32 Test Item Value Reference Range Interpretation Comments Lactate, Venous (test code = 0.87 mmol/L 0.50-2.20 2872) BRANDI (test code = BRANDI) Farm Operator ID - DB Lab Interpretation (test Normal code = 92889-9) [facility], [id number] 01:26:32 Test Item Value Reference Range Interpretation Comments Lactate, Venous (test code = 0.87 mmol/L 0.50-2.20 2872) BRANDI (test code = BRANDI) Farm Operator ID - DB Lab Interpretation (test Normal code = 06760-3) [facility] CenterLACTIC ACID, [id number] 01:26:32 Test Item Value Reference Range Interpretation Comments LACTATE BLOOD VENOUS (2) (BEAKER) 0.87 mmol/L 0.50-2.20 (test code = 2872) Farm Operator ID - DBPOCT-GLUCOSE [id number] 16:24:28 Test Item Value Reference Range Interpretation Comments POC-GLUCOSE METER 244 mg/dL 70-110 H : TESTED A T [facility] 6720 (BEAKER) (test code = [facility], 1538) [address]50: Farm Operator/Techni kelle ID = [id number] for Re yes, Maranda POCT-GLUCOSE [id number] 11:29:05 Test Item Value Reference Range Interpretation Comments POC-GLUCOSE METER 168 mg/dL 70-110 H : TESTED A T [facility] 6720 (BEAKER) (test code = [facility], 1538) 03831: Farm Operator/Techni kelle ID = [id number] for Re yes, Maranda POCT-GLUCOSE [id number] 06:45:50 Test Item Value Reference Range Interpretation Comments POC-GLUCOSE METER 132 mg/dL 70-110 H : TESTED A T [facility] 6720 (BEAKER) (test code = [facility], 1538) 92636: Farm Operator/Techni kelle ID = [id number] for UG GHADA HAMLIN BASIC METABOLIC [id number] 05:08:08 Test Item Value Reference Range Interpretation [...] S NOT APPLICABLE FOR DIALYSIS PATIEN TS. Farm Operator ID - HIEN [id number] 04:56:38 Test Item Value Reference Range Interpretation Comments MAGNESIUM (BEAKER) (test code = 1.9 mg/dL 1.6-2.6 627) Farm Operator ID - HIEN [id number] 04:56:38 Test Item Value Reference Range Interpretation Comments PHOSPHORUS (BEAKER) (test code = 3.7 mg/dL 2.3-4.7 604) Farm Operator ID - HIEN MCBC W/PLT COUNT & AUTO [id number] 04:33:28 Test Item Value Reference Range Interpretation [...] = 2801) CBC W/PLT COUNT & AUTO [id number] 22:57:11 Test Item Value Reference Range Interpretation [...] = 2801) RAD, CHEST, 1 VIEW, NON [id number] 22:44:00Reason for exam:- >dyspneaShould this be performed at the bedside?->Yes [facility] : 1955 [...] signed by: BRAXTON QUINTERO M.D. on 210:44 [id number] 22:43:07 Test Item Value Reference Range Interpretation Comments POC-Glucose (test code = 118 mg/dL 70-110 H : T ESTED AT [facility] 1855) [address] [place] [address], [facility] 30: Farm Operator/Techni kelle ID = [id number] for MARFIL, JOSE ARMANDO Lab Interpretation (test Abnormal code = 68663-4) [id number] 22:43:07 Test Item Value Reference Range Interpretation Comments POC-Glucose (test code = 118 mg/dL 70-110 H : [facility] [address] [place] [address], 770 30: Farm Operator/Techni kelle ID = [id number] for MARFIL, JOSE ARMANDO Lab Interpretation (test Abnormal code = 38008-6) [facility] [id number] 22:43:07 Test Item Value Reference Range Interpretation Comments POC-Glucose (test code = 118 mg/dL 70-110 H : T ESTED AT [facility] 1855) [address] [place] [address], 770 30: Farm Operator/Techni kelle ID = [id number] for MARFIL, JOSE ARMANDO Lab Interpretation (test Abnormal code = 85328-9) [facility] [id number] 22:43:07 Test Item Value Reference Range Interpretation Comments POC-Glucose (test code = 118 mg/dL 70-110 H : [facility] [address] [place] [address], 770 30: Farm Operator/Techni kelle ID = [id number] for MARFIL, JOSE ARMANDO Lab Interpretation (test Abnormal code = 78582-5) [facility] [id number] 22:43:07 Test Item Value Reference Range Interpretation Comments POC-Glucose (test code = 118 mg/dL 70-110 H : T ESTED AT [facility] 1855) [address] [place] [address], 770 30: Farm Operator/Techni kelle ID = [id number] for MARFIL, JOSE ARMANDO Lab Interpretation (test Abnormal code = 94521-6) [facility]2022-03-09 22:43:07 Test Item Value Reference Range Interpretation Comments POC-Glucose (test code = 118 mg/dL 70-110 H : [facility] [address] [place] [address], 770 30: Farm Operator/Techni kelle ID = [id number] for MARFIL, JOSE ARMANDO Lab Interpretation (test Abnormal code = 91166-3) [facility]2022-03-09 22:43:07 Test Item Value Reference Range Interpretation Comments POC-Glucose (test code = 118 mg/dL 70-110 H : [facility] [address] [place] [address], 770 30: Farm Operator/Techni kelle ID = [id number] for MARFIL, JOSE ARMANDO Lab Interpretation (test Abnormal code = 17274-8) [facility]2022-03-09 22:43:07 Test Item Value Reference Range Interpretation Comments POC-Glucose (test code = 118 mg/dL 70-110 H : [facility] [address] [place] [address], 770 30: Farm Operator/Techni kelle ID = [id number] for MARFIL, JOSE ARMANDO Lab Interpretation (test Abnormal code = 95042-7) [facility]2022-03-09 22:43:07 Test Item Value Reference Range Interpretation Comments POC-Glucose (test code = 118 mg/dL 70-110 H : T ESTED AT [facility] 1855) [address] [place] [address], 770 30: Farm Operator/Techni kelle ID = [id number] for MARFIL, JOSE ARMANDO Lab Interpretation (test Abnormal code = 30384-2) [facility] [id number] 22:43:07 Test Item Value Reference Range Interpretation Comments POC-Glucose (test code = 118 mg/dL 70-110 H : [facility] [address] [place] [address], 770 30: Farm Operator/Techni kelle ID = [id number] for MARFIL, JOSE ARMANDO Lab Interpretation (test Abnormal code = 70677-9) [facility]2022-03-09 22:43:07 Test Item Value Reference Range Interpretation Comments POC-Glucose (test code = 118 mg/dL 70-110 H : [facility] [address] [place] [address], 770 30: Farm Operator/Techni kelle ID = [id number] for MARFIL, JOSE ARMANDO Lab Interpretation (test Abnormal code = 22540-1) [facility]2022-03-09 22:43:07 Test Item Value Reference Range Interpretation Comments POC-Glucose (test code = 118 mg/dL 70-110 H : [facility] [address] [place] [address], [address]: Farm Operator/Techni kelle ID = [id number] for MARFIL, JOSE ARMANDO Lab Interpretation (test Abnormal code = 92117-6) [facility]2022-03-09 22:43:07 Test Item Value Reference Range Interpretation Comments POC-Glucose (test code = 118 mg/dL 70-110 H : [facility] [address] [place] [address], [address]: Farm Operator/Techni kelle ID = [id number] for MARFIL, JOSE ARMANDO Lab Interpretation (test Abnormal code = 25085-5) [facility]2022-03-09 22:43:07 Test Item Value Reference Range Interpretation Comments POC-Glucose (test code = 118 mg/dL 70-110 H : [facility] [address] [place] [address], [address]: Farm Operator/Techni kelle ID = [id number] for MARFIL, JOSE ARMANDO Lab Interpretation (test Abnormal code = 88118-8) [id number] 22:43:07 Test Item Value Reference Range Interpretation Comments POC-GLUCOSE (BEAKER) 118 mg/dL 70-110 H : TESTE D AT [facility] 6720 (test code = 1855) [facility], [address]: Farm Operator/Techni kelle ID = [id number] for MARF IL, JOSE ARMANDO ZTHM-[id number] 22:43:06 Test Item Value Reference Range Interpretation Comments POC-Hemoglobin (test code 8.2 g/dL 12.0-15.0 L : TESTED AT [facility] = 1856) [address] [facility], [address] 30: Farm Operator/Techni kelle ID = [id number] for MARFIL, JOSE ARMANDO Lab Interpretation (test Abnormal code = 36919-4) [facility] CenterHmjrlrIZWW-XFKQSEBRRV9478-89-09 22:43:06 Test Item Value Reference Range Interpretation Comments POC-Hematocrit (test code 24 % 36-45 L : = 1857) Farm Operator/Techni kelle ID = [id number] for MARFIL, JOSE ARMANDO Lab Interpretation (test Abnormal code = 73341-0) [facility] CenterJqwjblXCYR-QUJGHRTRVF1226-89-09 22:43:06 Test Item Value Reference Range Interpretation Comments POC-Hemoglobin (test code 8.2 g/dL 12.0-15.0 L : TESTED AT [facility] = 1856) [address] [facility], [address]: Farm Operator/Techni kelle ID = [id number] for MARFIL, JOSE ARMANDO Lab Interpretation (test Abnormal code = 57431-0) [facility] CenterTlkouaBWRI-ZSBBTXGDCS6317-14-09 22:43:06 Test Item Value Reference Range Interpretation Comments POC-Hematocrit (test code 24 % 36-45 L : = 1857) Farm Operator/Techni kelle ID = [id number] for MARFIL, JOSE ARMANDO Lab Interpretation (test Abnormal code = 16242-4) [facility] CenterNbrzwkACYG-WCUPMCYCCK7254-54-09 22:43:06 Test Item Value Reference Range Interpretation Comments POC-Hemoglobin (test code 8.2 g/dL 12.0-15.0 L : [facility] [address] [facility], [address]: Farm Operator/Techni kelle ID = [id number] for MARFIL, JOSE ARMANDO Lab Interpretation (test Abnormal code = 54152-9) [facility]-[id number] 22:43:06 Test Item Value Reference Range Interpretation Comments POC-Hematocrit (test code 24 % 36-45 L : = 1857) Farm Operator/Techni kelle ID = [id number] for MARFIL, JOSE ARMANDO Lab Interpretation (test Abnormal code = 26592-3) [facility]-GNPATPQVIB8033-16-41 22:43:06 Test Item Value Reference Range Interpretation Comments POC-Hemoglobin (test code 8.2 g/dL 12.0-15.0 L : TESTED AT [facility] = 1856) [address] [facility], 7[address] 30: Farm Operator/Techni kelle ID = [id number] for MARFIL, JOSE ARMANDO Lab Interpretation (test Abnormal code = 80443-0) [facility]-[id number] 22:43:06 Test Item Value Reference Range Interpretation Comments POC-Hematocrit (test code 24 % 36-45 L : = 1857) Farm Operator/Techni kelle ID = [id number] for MARFIL, JOSE ARMANDO Lab Interpretation (test Abnormal code = 46035-5) [facility]-WCIXCYQTPM8164-77-63 22:43:06 Test Item Value Reference Range Interpretation Comments POC-Hemoglobin (test code 8.2 g/dL 12.0-15.0 L : TESTED AT [facility] = 1856) [address] [place] [address], [address]: Farm Operator/Techni kelle ID = [id number] for MARFIL, JOSE ARMANDO Lab Interpretation (test Abnormal code = 42388-9) [facility]-MDJRANDRAK4400-39-31 22:43:06 Test Item Value Reference Range Interpretation Comments POC-Hematocrit (test code 24 % 36-45 L : = 1857) Farm Operator/Techni kelle ID = [id number] for MARFIL, JOSE ARMANDO Lab Interpretation (test Abnormal code = 42841-7) [facility]-PANICMBGOO0967-92-09 22:43:06 Test Item Value Reference Range Interpretation Comments POC-Hemoglobin (test code 8.2 g/dL 12.0-15.0 L : TESTED AT [facility] = 1856) [address] [place] [address], [address]: Farm Operator/Techni kelle ID = [id number] for MARFIL, JOSE ARMANDO Lab Interpretation (test Abnormal code = 24336-2) [facility]-NHLMDVTHGC4297-19-36 22:43:06 Test Item Value Reference Range Interpretation Comments POC-Hematocrit (test code 24 % 36-45 L : = 1857) Farm Operator/Techni kelle ID = [id number] for MARFIL, JOSE ARMANDO Lab Interpretation (test Abnormal code = 63499-4) [facility]-YJBJEUHEPL2391-19-34 22:43:06 Test Item Value Reference Range Interpretation Comments POC-Hemoglobin (test code 8.2 g/dL 12.0-15.0 L : TESTED AT [facility] = 1856) [address] [place] [address], [address]: Farm Operator/Techni kelle ID = [id number] for MARFIL, JOSE ARMANDO Lab Interpretation (test Abnormal code = 14298-1) [facility]-PLLOUCVJXU4894-19-51 22:43:06 Test Item Value Reference Range Interpretation Comments POC-Hematocrit (test code 24 % 36-45 L : = 1857) Farm Operator/Techni kelle ID = [id number] for MARFIL, JOSE ARMANDO Lab Interpretation (test Abnormal code = 13064-7) [facility]-[id number] 22:43:06 Test Item Value Reference Range Interpretation Comments POC-Hemoglobin (test code 8.2 g/dL 12.0-15.0 L : TESTED AT [facility] = 1856) [address] [place] [address], [address]: Farm Operator/Techni kelle ID = [id number] for MARFIL, JOSE ARMANDO Lab Interpretation (test Abnormal code = 75060-7) [facility]-[id number] 22:43:06 Test Item Value Reference Range Interpretation Comments POC-Hematocrit (test code 24 % 36-45 L : = 1857) Farm Operator/Techni kelle ID = [id number] for MARFIL, JOSE ARMANDO Lab Interpretation (test Abnormal code = 94554-5) [facility]-[id number] 22:43:06 Test Item Value Reference Range Interpretation Comments POC-Hemoglobin (test code 8.2 g/dL 12.0-15.0 L : TESTED AT [facility] = 1856) [address] [place] [address], [address]: Farm Operator/Techni kelle ID = [id number] for MARFIL, JOSE ARMANDO Lab Interpretation (test Abnormal code = 72746-4) [facility]-[id number] 22:43:06 Test Item Value Reference Range Interpretation Comments POC-Hematocrit (test code 24 % 36-45 L : = 1857) Farm Operator/Techni kelle ID = [id number] for MARFIL, JOSE ARMANDO Lab Interpretation (test Abnormal code = 21434-5) [facility]-[id number] 22:43:06 Test Item Value Reference Range Interpretation Comments POC-Hemoglobin (test code 8.2 g/dL 12.0-15.0 L : TESTED AT [facility] = 1856) [address] [place] [address], [address]: Farm Operator/Techni kelle ID = [id number] for MARFIL, JOSE ARMANDO Lab Interpretation (test Abnormal code = 84559-2) [facility]-[id number] 22:43:06 Test Item Value Reference Range Interpretation Comments POC-Hematocrit (test code 24 % 36-45 L : = 1857) Farm Operator/Techni kelle ID = [id number] for MARFIL, JOSE ARMANDO Lab Interpretation (test Abnormal code = 77000-6) [facility]-YBVTOBPJVF2383-14-26 22:43:06 Test Item Value Reference Range Interpretation Comments POC-Hemoglobin (test code 8.2 g/dL 12.0-15.0 L : TESTED AT [facility] = 1856) [address] [place] [address], [address]: Farm Operator/Techni kelle ID = [id number] for MARFIL, JOSE ARMANDO Lab Interpretation (test Abnormal code = 40836-2) [facility]-[id number] 22:43:06 Test Item Value Reference Range Interpretation Comments POC-Hematocrit (test code 24 % 36-45 L : = 1857) Farm Operator/Techni kelle ID = [id number] for MARFIL, JOSE ARMANDO Lab Interpretation (test Abnormal code = 52035-3) [facility]-[id number] 22:43:06 Test Item Value Reference Range Interpretation Comments POC-Hemoglobin (test code 8.2 g/dL 12.0-15.0 L : TESTED AT [facility] = 1856) [address] [place] [address], [address]: Farm Operator/Techni kelle ID = [id number] for MARFIL, JOSE ARMANDO Lab Interpretation (test Abnormal code = 21927-3) [facility]-[id number] 22:43:06 Test Item Value Reference Range Interpretation Comments POC-Hematocrit (test code 24 % 36-45 L : = 1857) Farm Operator/Techni kelle ID = [id number] for MARFIL, JOSE ARMANDO Lab Interpretation (test Abnormal code = 93303-3) [facility]-[id number] 22:43:06 Test Item Value Reference Range Interpretation Comments POC-Hemoglobin (test code 8.2 g/dL 12.0-15.0 L : TESTED AT [facility] = 1856) [address] [place] [address], [address]: Farm Operator/Techni kelle ID = [id number] for MARFIL, JOSE ARMANDO Lab Interpretation (test Abnormal code = 89135-7) [facility]-LIPHWTYYKK6320-19-37 22:43:06 Test Item Value Reference Range Interpretation Comments POC-Hematocrit (test code 24 % 36-45 L : = 1857) Farm Operator/Techni kelle ID = [id number] for MARFIL, JOSE ARMANDO Lab Interpretation (test Abnormal code = 87465-2) [facility]-BWSFSALLEQ8187-03-20 22:43:06 Test Item Value Reference Range Interpretation Comments POC-Hemoglobin (test code 8.2 g/dL 12.0-15.0 L : [facility] [address] [place] [address], [address]: Farm Operator/Techni kelle ID = [id number] for MARFIL, JOSE ARMANDO Lab Interpretation (test Abnormal code = 91473-8) [facility]-RMABNWEEBL1662-22-01 22:43:06 Test Item Value Reference Range Interpretation Comments POC-Hematocrit (test code 24 % 36-45 L : = 1857) Farm Operator/Techni kelle ID = [id number] for MARFIL, JOSE ARMANDO Lab Interpretation (test Abnormal code = 20356-7) [facility] CenterIbgdcnVKAC-YMIHCFHPLC3610-92-09 22:43:06 Test Item Value Reference Range Interpretation Comments POC-HEMOGLOBIN 8.2 g/dL 12.0-15.0 L : TESTED AT [facility] 6720 (BEAKER) (test code = [facility], 1856) [address]: Farm Operator/Techni kelle ID = [id number] for MARF IL, JOSE ARMANDO NKTT-[id number] 22:43:06 Test Item Value Reference Range Interpretation Comments POC-HEMATOCRIT 24 % 36-45 L : Farm Operator/Te chnician ID = (BEAKER) (test code = 710413 for MARFIL, JOSE ARMANDO 1857) SAE-Yjczqjhdu1717-95-09 22:43:05 Test Item Value Reference Range Interpretation Comments POC-Potassium (test code 3.4 meq/L 3.6-5.5 L : T ESTED AT [facility] = 1540) [address] [place] [address], [address]: Farm Operator/Techni kelle ID = [id number] for MARFIL, JOSE ARMANDO Lab Interpretation (test Abnormal code = 60492-6) [facility]-Gspifk8569-38-42 22:43:05 Test Item Value Reference Range Interpretation Comments POC-Sodium (test code = 137 meq/L 135-148 : TE STED AT [facility] 1542) [address] [place] [address], [address] 30: Farm Operator/Techni kelle ID = [id number] for MARFIL, JOSE ARMANDO Lab Interpretation (test Normal code = 44381-1) [facility]-Dfonxgehj2079-95-47 22:43:05 Test Item Value Reference Range Interpretation Comments POC-Potassium (test code 3.4 meq/L 3.6-5.5 L : T ESTED AT [facility] = 1540) [address] [place] [address], [address]: Farm Operator/Techni kelle ID = [id number] for MARFIL, JOSE ARMANDO Lab Interpretation (test Abnormal code = 11453-5) [facility]-Kofnlf0593-15-23 22:43:05 Test Item Value Reference Range Interpretation Comments POC-Sodium (test code = 137 meq/L 135-148 : TE STED AT [facility] 1542) [address] [place] [address], [address]: Farm Operator/Techni kelle ID = [id number] for MARFIL, JOSE ARMANDO Lab Interpretation (test Normal code = 18862-8) [facility]-Eniydfvmo6289-52-89 22:43:05 Test Item Value Reference Range Interpretation Comments POC-Potassium (test code 3.4 meq/L 3.6-5.5 L : T ESTED AT [facility] = 1540) [address] [place] [address], [address]70 30: Farm Operator/Techni kelle ID = [id number] for MARFIL, JOSE ARMANDO Lab Interpretation (test Abnormal code = 44557-7) [facility]-Yntigz8950-72-82 22:43:05 Test Item Value Reference Range Interpretation Comments POC-Sodium (test code = 137 meq/L 135-148 : TE STED AT [facility] 1542) [address] [place] [address], [address]: Farm Operator/Techni kelle ID = [id number] for MARFIL, JOSE ARMANDO Lab Interpretation (test Normal code = 03310-3) [facility]-Xhugrrksw2426-38-20 22:43:05 Test Item Value Reference Range Interpretation Comments POC-Potassium (test code 3.4 meq/L 3.6-5.5 L : T ESTED AT [facility] = 1540) [address] [place] [address], [address] 30: Farm Operator/Techni kelle ID = [id number] for MARFIL, JOSE ARMANDO Lab Interpretation (test Abnormal code = 75061-7) [facility]-Jmdzsx0866-52-01 22:43:05 Test Item Value Reference Range Interpretation Comments POC-Sodium (test code = 137 meq/L 135-148 : TE STED AT [facility] 1542) [address] [place] [address], [address] 30: Farm Operator/Techni kelle ID = [id number] for MARFIL, JOSE ARMANDO Lab Interpretation (test Normal code = 81459-6) [facility] CenterHyarckrwl6802-74-05 22:43:05 Test Item Value Reference Range Interpretation Comments POC-Potassium (test code 3.4 meq/L 3.6-5.5 L : T ESTED AT [facility] = 1540) [address] [place] [address], [address] 30: Farm Operator/Techni kelle ID = [id number] for MARFIL, JOSE ARMANDO Lab Interpretation (test Abnormal code = 00506-0) [facility]-Czhwzt9459-84-99 22:43:05 Test Item Value Reference Range Interpretation Comments POC-Sodium (test code = 137 meq/L 135-148 : TE STED AT [facility] 1542) [address] [place] [address], [address] 30: Farm Operator/Techni kelle ID = [id number] for MARFIL, JOSE ARMANDO Lab Interpretation (test Normal code = 45132-3) [facility]-Mbbkppzwy6266-56-41 22:43:05 Test Item Value Reference Range Interpretation Comments POC-Potassium (test code 3.4 meq/L 3.6-5.5 L : T ESTED AT [facility] = 1540) [address] [place] [address], [address] 30: Farm Operator/Techni kelle ID = [id number] for MARFIL, JOSE ARMANDO Lab Interpretation (test Abnormal code = 29834-1) [facility] CenterUoebbd3184-36-83 22:43:05 Test Item Value Reference Range Interpretation Comments POC-Sodium (test code = 137 meq/L 135-148 : TE STED AT [facility] 1542) [address] [place] [address], [address]: Farm Operator/Techni kelle ID = [id number] for MARFIL, JOSE ARMANDO Lab Interpretation (test Normal code = 60842-3) [facility]-Jjflneusk2037-37-29 22:43:05 Test Item Value Reference Range Interpretation Comments POC-Potassium (test code 3.4 meq/L 3.6-5.5 L : T ESTED AT [facility] = 1540) [address] [place] [address], [address] 30: Farm Operator/Techni kelle ID = [id number] for MARFIL, JOSE ARMANDO Lab Interpretation (test Abnormal code = 79119-4) [facility]-Nbxyld5323-92-20 22:43:05 Test Item Value Reference Range Interpretation Comments POC-Sodium (test code = 137 meq/L 135-148 : TE STED AT [facility] 1542) [address] [place] [address], [address] 30: Farm Operator/Techni kelle ID = [id number] for MARFIL, JOSE ARMANDO Lab Interpretation (test Normal code = 82490-3) [facility]-Lhbsxbvgz9236-24-44 22:43:05 Test Item Value Reference Range Interpretation Comments POC-Potassium (test code 3.4 meq/L 3.6-5.5 L : T ESTED AT [facility] = 1540) [address] [place] [address], [address] 30: Farm Operator/Techni kelle ID = [id number] for MARFIL, JOSE ARMANDO Lab Interpretation (test Abnormal code = 06530-6) [facility]-Njdjpi8346-87-75 22:43:05 Test Item Value Reference Range Interpretation Comments POC-Sodium (test code = 137 meq/L 135-148 : TE STED AT [facility] 1542) [address] [place] [address], [address] 30: Farm Operator/Techni kelle ID = [id number] for MARFIL, JOSE ARMANDO Lab Interpretation (test Normal code = 98363-2) [facility]-Rwqqwutri9933-28-68 22:43:05 Test Item Value Reference Range Interpretation Comments POC-Potassium (test code 3.4 meq/L 3.6-5.5 L : T ESTED AT [facility] = 1540) [address] [place] [address], [address]70 30: Farm Operator/Techni kelle ID = [id number] for MARFIL, JOSE ARMANDO Lab Interpretation (test Abnormal code = 43654-2) [facility]-Cxjnwv0686-30-40 22:43:05 Test Item Value Reference Range Interpretation Comments POC-Sodium (test code = 137 meq/L 135-148 : TE STED AT [facility] 1542) [address] [place] [address], [address] 30: Farm Operator/Techni kelle ID = [id number] for MARFIL, JOSE ARMANDO Lab Interpretation (test Normal code = 97984-4) [facility]-Vqxjqgveb9036-29-94 22:43:05 Test Item Value Reference Range Interpretation Comments POC-Potassium (test code 3.4 meq/L 3.6-5.5 L : T ESTED AT [facility] = 1540) [address] [place] [address], [address]: Farm Operator/Techni kelle ID = [id number] for MARFIL, JOSE ARMANDO Lab Interpretation (test Abnormal code = 62568-2) [facility]-Gceqdy0245-41-63 22:43:05 Test Item Value Reference Range Interpretation Comments POC-Sodium (test code = 137 meq/L 135-148 : TE STED AT [facility] 1542) [address] [place] [address], [address] 30: Farm Operator/Techni kelle ID = [id number] for MARFIL, JOSE ARMANDO Lab Interpretation (test Normal code = 28717-0) [facility]-Ymbqzpcbe2289-36-25 22:43:05 Test Item Value Reference Range Interpretation Comments POC-Potassium (test code 3.4 meq/L 3.6-5.5 L : T ESTED AT [facility] = 1540) [address] [place] [address], [address] 30: Farm Operator/Techni kelle ID = [id number] for MARFIL, JOSE ARMANDO Lab Interpretation (test Abnormal code = 63048-1) [facility] CenterXwuafr3333-27-17 22:43:05 Test Item Value Reference Range Interpretation Comments POC-Sodium (test code = 137 meq/L 135-148 : TE STED AT [facility] 1542) [address] [place] [address], [address] 30: Farm Operator/Techni kelle ID = [id number] for MARFIL, JOSE ARMANDO Lab Interpretation (test Normal code = 63436-3) [facility]-Szkqbtyfv6757-39-16 22:43:05 Test Item Value Reference Range Interpretation Comments POC-Potassium (test code 3.4 meq/L 3.6-5.5 L : T ESTED AT [facility] = 1540) [address] [place] [address], [address]: Farm Operator/Techni kelle ID = [id number] for MARFIL, JOSE ARMANDO Lab Interpretation (test Abnormal code = 35884-8) [facility] CenterUtijqe7612-15-83 22:43:05 Test Item Value Reference Range Interpretation Comments POC-Sodium (test code = 137 meq/L 135-148 : TE STED AT [facility] 1542) [address] [place] [address], [address] 30: Farm Operator/Techni kelle ID = [id number] for MARFIL, JOSE ARMANDO Lab Interpretation (test Normal code = 01063-1) [facility] CenterXuzzysumi2263-59-61 22:43:05 Test Item Value Reference Range Interpretation Comments POC-Potassium (test code 3.4 meq/L 3.6-5.5 L : T ESTED AT [facility] = 1540) [address] [facility], [address] 30: Farm Operator/Techni kelle ID = [id number] for MARFIL, JOSE ARMANDO Lab Interpretation (test Abnormal code = 76104-2) [facility]-Kufzam0328-89-63 22:43:05 Test Item Value Reference Range Interpretation Comments POC-Sodium (test code = 137 meq/L 135-148 : TE STED AT [facility] 1542) [address] [place] [address], [address]: Farm Operator/Techni kelle ID = [id number] for MARFIL, JOSE ARMANDO Lab Interpretation (test Normal code = 08546-4) [facility]-Pcarpegtr4533-10-33 22:43:05 Test Item Value Reference Range Interpretation Comments POC-Potassium (test code 3.4 meq/L 3.6-5.5 L : T ESTED AT [facility] = 1540) [address] [facility], [address]: Farm Operator/Techni kelle ID = [id number] for MARFIL, JOSE ARMANDO Lab Interpretation (test Abnormal code = 00256-5) [facility]-Rqfxxo1226-97-36 22:43:05 Test Item Value Reference Range Interpretation Comments POC-Sodium (test code = 137 meq/L 135-148 : TE STED AT [facility] 1542) [address] [place] [address], [address] 30: Farm Operator/Techni kelle ID = [id number] for MARFIL, JOSE ARMANDO Lab Interpretation (test Normal code = 10808-2) [facility]-[id number] 22:43:05 Test Item Value Reference Range Interpretation Comments POC-SODIUM (BEAKER) 137 meq/L 135-148 : TESTED AT [facility] 6720 (test code = 1542) [facility], [address]: Farm Operator/Techni kelle ID = [id number] for MARF IL, JOSE ARMANDO AJEI-[id number] 22:43:05 Test Item Value Reference Range Interpretation Comments POC-POTASSIUM 3.4 meq/L 3.6-5.5 L : TESTED AT [facility] 6720 (BEAKER) (test code [facility], = 1540) [address]: Farm Operator/Techni kelle ID = [id number] for JOSE ARMANDO KUMAR POC-Blood gases, mgicwl7736-45-56 22:42:59 Test Item Value Reference Range Interpretation Comments Temp. Celsius-POC (test 101.3 code = 1834) FIO2-POC (test code = 28 1834) pH, Venous-POC (test 7.484 7.320-7.420 H : TESTE D AT [facility] code = 1842) [address] [facility], [address] PCO2, Venous-POC (test 39.4 See_Comment L If [...] mated message] code = 1844) The system [employer] generated this result transmit levi reference range : 25.0 - 40.0 mm Hg. The reference r alba was not used to interpret this result as normal/abnormal . SO2, Venous-POC (test 87.0 % 40.0-70.0 H code = 1845) HCO3, Venous-POC (test 29.3 meq/L 21.0-29.0 H code = 1846) BE, Venous-POC (test 6.0 meq/L -2.0-3.0 H : code = 1847) Farm Operator/Techni kelle ID = [id number] for JOSE ARMANDO CELIS Lab Interpretation Abnormal (test code = 95515-7) [facility], fmpwxe4427-28-19 22:42:59 Test Item Value Reference Range Interpretation Comments Temp. Celsius-POC (test 101.3 code = 1834) FIO2-POC (test code = 1834) pH, Venous-POC (test 7.484 7.320-7.420 H : TESTE D AT [facility] code = 1842) [address] [place], [address] PCO2, Venous-POC (test 39.4 See_Comment L If [...] mated message] code = 1844) The system [employer] generated this result transmit levi reference range : 25.0 - 40.0 mm Hg. The reference r alba was not used to interpret this result as normal/abnormal . SO2, Venous-POC (test 87.0 % 40.0-70.0 H code = 1845) HCO3, Venous-POC (test 29.3 meq/L 21.0-29.0 H code = 1846) BE, Venous-POC (test 6.0 meq/L -2.0-3.0 H : code = 1847) Farm Operator/Techni kelle ID = [id number] for VIMAL JOSE ARMANDO Lab Interpretation Abnormal (test code = 94924-5) [facility]-Blood gases, hlrgws6014-95-64 22:42:59 Test Item Value Reference Range Interpretation Comments Temp. Celsius-POC (test 101.3 code = 1834) FIO2-POC (test code = 28 1835) pH, Venous-POC (test 7.484 7.320-7.420 H : TESTE D AT [facility] code = 1842) [address] [place], [address] PCO2, Venous-POC (test 39.4 See_Comment L If [...] mated message] code = 1844) The system [employer] generated this result transmit levi reference range : 25.0 - 40.0 mm Hg. The reference r alba was not used to interpret this result as normal/abnormal . SO2, Venous-POC (test 87.0 % 40.0-70.0 H code = 1845) HCO3, Venous-POC (test 29.3 meq/L 21.0-29.0 H code = 1846) BE, Venous-POC (test 6.0 meq/L -2.0-3.0 H : code = 1847) Farm Operator/Techni kelle ID = [id number] for MARFIL, JOSE ARMANDO Lab Interpretation Abnormal (test code = 23061-8) [facility]-Blood gases, [id number] 22:42:59 Test Item Value Reference Range Interpretation Comments Temp. Celsius-POC (test 101.3 code = 1834) FIO2-POC (test code = 28 1834) pH, Venous-POC (test 7.484 7.320-7.420 H : TESTE D AT [facility] code = 1842) [address] [facility] [place], [address] PCO2, Venous-POC (test 39.4 See_Comment L If [...] mated message] code = 1844) The system [employer] generated this result transmit levi reference range : 25.0 - 40.0 mm Hg. The reference r alba was not used to interpret this result as normal/abnormal . SO2, Venous-POC (test 87.0 % 40.0-70.0 H code = 1845) HCO3, Venous-POC (test 29.3 meq/L 21.0-29.0 H code = 1846) BE, Venous-POC (test 6.0 meq/L -2.0-3.0 H : code = 1847) Farm Operator/Techni kelle ID = [id number] for MARFIL, JOSE ARMANDO Lab Interpretation Abnormal (test code = 22074-5) [facility]-Blood gases, [id number] 22:42:59 Test Item Value Reference Range Interpretation Comments Temp. Celsius-POC (test 101.3 code = 1834) FIO2-POC (test code = 28 1834) pH, Venous-POC (test 7.484 7.320-7.420 H : TESTE D AT [facility] code = 1842) [address] [place], [address] PCO2, Venous-POC (test 39.4 See_Comment L If [...] mated message] code = 1844) The system [employer] generated this result transmit levi reference range : 25.0 - 40.0 mm Hg. The reference r alba was not used to interpret this result as normal/abnormal . SO2, Venous-POC (test 87.0 % 40.0-70.0 H code = 1845) HCO3, Venous-POC (test 29.3 meq/L 21.0-29.0 H code = 1846) BE, Venous-POC (test 6.0 meq/L -2.0-3.0 H : code = 1847) Farm Operator/Techni kelle ID = [id number] for JOSE ARMANDO CELIS Lab Interpretation Abnormal (test code = 50669-5) [facility]-Blood gases, [id number] 22:42:59 Test Item Value Reference Range Interpretation Comments Temp. Celsius-POC (test 101.3 code = 1834) FIO2-POC (test code = 28 1835) pH, Venous-POC (test 7.484 7.320-7.420 H : TESTE D AT [facility] code = 1842) [address] [place], [address] PCO2, Venous-POC (test 39.4 See_Comment L If [...] mated message] code = 1844) The system [employer] generated this result transmit levi reference range : 25.0 - 40.0 mm Hg. The reference r alba was not used to interpret this result as normal/abnormal . SO2, Venous-POC (test 87.0 % 40.0-70.0 H code = 1845) HCO3, Venous-POC (test 29.3 meq/L 21.0-29.0 H code = 1846) BE, Venous-POC (test 6.0 meq/L -2.0-3.0 H : code = 1847) Farm Operator/Techni kelle ID = [id number] for MARFIL, JOSE ARMANDO Lab Interpretation Abnormal (test code = 41017-5) [facility]-Blood gases, [id number] 22:42:59 Test Item Value Reference Range Interpretation Comments Temp. Celsius-POC (test 101.3 code = 1834) FIO2-POC (test code = 28 1835) pH, Venous-POC (test 7.484 7.320-7.420 H : TESTE D AT [facility] code = 1842) [address] [facility], [address] PCO2, Venous-POC (test 39.4 See_Comment L If [...] mated message] code = 1844) The system [employer] generated this result transmit levi reference range : 25.0 - 40.0 mm Hg. The reference r alba was not used to interpret this result as normal/abnormal . SO2, Venous-POC (test 87.0 % 40.0-70.0 H code = 1845) HCO3, Venous-POC (test 29.3 meq/L 21.0-29.0 H code = 1846) BE, Venous-POC (test 6.0 meq/L -2.0-3.0 H : code = 1847) Farm Operator/Techni kelle ID = [id number] for MARFIL, JOSE ARMANDO Lab Interpretation Abnormal (test code = 87322-1) [facility]-Blood gases, [id number] 22:42:59 Test Item Value Reference Range Interpretation Comments Temp. Celsius-POC (test 101.3 code = 1834) FIO2-POC (test code = 1834) pH, Venous-POC (test 7.484 7.320-7.420 H : TESTE D AT [facility] code = 1842) [address] [place], [address] PCO2, Venous-POC (test 39.4 See_Comment L If [...] mated message] code = 1844) The system [employer] generated this result transmit levi reference range : 25.0 - 40.0 mm Hg. The reference r alba was not used to interpret this result as normal/abnormal . SO2, Venous-POC (test 87.0 % 40.0-70.0 H code = 1845) HCO3, Venous-POC (test 29.3 meq/L 21.0-29.0 H code = 1846) BE, Venous-POC (test 6.0 meq/L -2.0-3.0 H : code = 1847) Farm Operator/Techni kelle ID = [id number] for JOSE ARMANDO CELIS Lab Interpretation Abnormal (test code = 50395-3) [facility]-Blood gases, [id number] 22:42:59 Test Item Value Reference Range Interpretation Comments Temp. Celsius-POC (test 101.3 code = 1834) FIO2-POC (test code = 1834) pH, Venous-POC (test 7.484 7.320-7.420 H : TESTE D AT [facility] code = 1842) [address] [place], [address] PCO2, Venous-POC (test 39.4 See_Comment L If [...] mated message] code = 1844) The system [employer] generated this result transmit levi reference range : 25.0 - 40.0 mm Hg. The reference r alba was not used to interpret this result as normal/abnormal . SO2, Venous-POC (test 87.0 % 40.0-70.0 H code = 1845) HCO3, Venous-POC (test 29.3 meq/L 21.0-29.0 H code = 1846) BE, Venous-POC (test 6.0 meq/L -2.0-3.0 H : code = 1847) Farm Operator/Techni kelle ID = [id number] for JOSE ARMANDO CELIS Lab Interpretation Abnormal (test code = 36300-6) [facility]-Blood gases, [id number] 22:42:59 Test Item Value Reference Range Interpretation Comments Temp. Celsius-POC (test 101.3 code = 1834) FIO2-POC (test code = 28 1835) pH, Venous-POC (test 7.484 7.320-7.420 H : TESTE D AT [facility] code = 1842) [address] [facility], [address] PCO2, Venous-POC (test 39.4 See_Comment L If [...] mated message] code = 1844) The system [employer] generated this result transmit levi reference range : 25.0 - 40.0 mm Hg. The reference r alba was not used to interpret this result as normal/abnormal . SO2, Venous-POC (test 87.0 % 40.0-70.0 H code = 1845) HCO3, Venous-POC (test 29.3 meq/L 21.0-29.0 H code = 1846) BE, Venous-POC (test 6.0 meq/L -2.0-3.0 H : code = 1847) Farm Operator/Techni kelle ID = [id number] for MARFIL, JOSE ARMANDO Lab Interpretation Abnormal (test code = 02747-1) [facility]-Blood gases, [id number] 22:42:59 Test Item Value Reference Range Interpretation Comments Temp. Celsius-POC (test 101.3 code = 1834) FIO2-POC (test code = 28 1834) pH, Venous-POC (test 7.484 7.320-7.420 H : TESTE D AT [facility] code = 1842) [address] [place], [address] PCO2, Venous-POC (test 39.4 See_Comment L If [...] mated message] code = 1844) The system [employer] generated this result transmit levi reference range : 25.0 - 40.0 mm Hg. The reference r alba was not used to interpret this result as normal/abnormal . SO2, Venous-POC (test 87.0 % 40.0-70.0 H code = 1845) HCO3, Venous-POC (test 29.3 meq/L 21.0-29.0 H code = 1846) BE, Venous-POC (test 6.0 meq/L -2.0-3.0 H : code = 1847) Farm Operator/Techni kelle ID = [id number] for MARFIL, JOSE ARMANDO Lab Interpretation Abnormal (test code = 02682-6) [facility]-Blood gases, [id number] 22:42:59 Test Item Value Reference Range Interpretation Comments Temp. Celsius-POC (test 101.3 code = 1834) FIO2-POC (test code = 28 5) pH, Venous-POC (test 7.484 7.320-7.420 H : TESTE D AT [facility] code = 1842) [address] [place], [address] PCO2, Venous-POC (test 39.4 See_Comment L If [...] mated message] code = 1844) The system [employer] generated this result transmit levi reference range : 25.0 - 40.0 mm Hg. The reference r alba was not used to interpret this result as normal/abnormal . SO2, Venous-POC (test 87.0 % 40.0-70.0 H code = 1845) HCO3, Venous-POC (test 29.3 meq/L 21.0-29.0 H code = 1846) BE, Venous-POC (test 6.0 meq/L -2.0-3.0 H : code = 1847) Farm Operator/Techni kelle ID = [id number] for JOSE ARMANDO CELIS Lab Interpretation Abnormal (test code = 06763-9) [facility]-Blood gases, [id number] 22:42:59 Test Item Value Reference Range Interpretation Comments Temp. Celsius-POC (test 101.3 code = 1834) FIO2-POC (test code = 28 1835) pH, Venous-POC (test 7.484 7.320-7.420 H : TESTE D AT [facility] code = 1842) [address] [place], [address] PCO2, Venous-POC (test 39.4 See_Comment L If [...] mated message] code = 1844) The system [employer] generated this result transmit levi reference range : 25.0 - 40.0 mm Hg. The reference r alba was not used to interpret this result as normal/abnormal . SO2, Venous-POC (test 87.0 % 40.0-70.0 H code = 1845) HCO3, Venous-POC (test 29.3 meq/L 21.0-29.0 H code = 1846) BE, Venous-POC (test 6.0 meq/L -2.0-3.0 H : code = 1847) Farm Operator/Techni kelle ID = [id number] for MARFIL, JOSE ARMANDO Lab Interpretation Abnormal (test code = 55372-6) [facility]-Blood gases, [id number] 22:42:59 Test Item Value Reference Range Interpretation Comments Temp. Celsius-POC (test 101.3 code = 1834) FIO2-POC (test code = 28 1835) pH, Venous-POC (test 7.484 7.320-7.420 H : TESTE D AT [facility] code = 1842) [address] [facility], [address] PCO2, Venous-POC (test 39.4 See_Comment L If [...] mated message] code = 1844) The system [employer] generated this result transmit levi reference range : 25.0 - 40.0 mm Hg. The reference r alba was not used to interpret this result as normal/abnormal . SO2, Venous-POC (test 87.0 % 40.0-70.0 H code = 1845) HCO3, Venous-POC (test 29.3 meq/L 21.0-29.0 H code = 1846) BE, Venous-POC (test 6.0 meq/L -2.0-3.0 H : code = 1847) Farm Operator/Techni kelle ID = [id number] for MARFIL, JOSE ARMANDO Lab Interpretation Abnormal (test code = 54759-8) [facility]-BLOOD GASES, [id number] 22:42:59 Test Item Value Reference Range Interpretation Comments TEMP, CELSIUS-POC 101.3 (BEAKER) (test code = 1834) FIO2-POC (BEAKER) 28 (test code = 1835) PH, VENOUS-POC 7.484 7.320-7.420 H : TESTED AT [facility] [address] ([facility]) (test code [facility], = 184) [address] PCO2, VENOUS-POC 39.4 mm Hg 41.0-51.0 L If pO2 is > 180, pCO2 may (AKER) (test code be posit ively biased = 1843) PO2, VENOUS-POC 53.0 mm Hg 25.0-40.0 H (BEAKER) (test code = 1844) SO2, VENOUS-POC 87.0 % 40.0-70.0 H (BEAKER) (test code = 1845) HCO3, VENOUS-POC 29.3 meq/L 21.0-29.0 H (BEAKER) (test code = 1846) BASE EXCESS, 6.0 meq/L -2.0-3.0 H : Farm Operator/Tech nician ID VENOUS-POC ([facility]) = [id number] for MARFIL, (test code = 1847) JOSE ARMANDO LACTIC ACID, [id number] 22:23:56 Test Item Value Reference Range Interpretation Comments LACTATE BLOOD VENOUS 0.92 mmol/L 0.50-2.20 Specime n moderately (2) ([facility]) (test hemolyzed code = 2872) Farm Operator ID - BSPOCT-GLUCOSE [id number] 21:35:23 Test Item Value Reference Range Interpretation Comments POC-GLUCOSE METER 125 mg/dL 70-110 H : TESTED A T [facility] [address] ([facility]) (test code = [facility], 153) [address]: Farm Operator/Techni kelle ID = [id number] for UG EM HAMLINA POCT-GLUCOSE [id number] 17:05:43 Test Item Value Reference Range Interpretation Comments POC-GLUCOSE METER 224 mg/dL 70-110 H : TESTED A T [facility] [address] ([facility]) (test code = [facility], 153) [address]: Farm Operator/Techni kelle ID = [id number] for Re Maranda brownlee POCT-GLUCOSE [id number] 16:33:44 Test Item Value Reference Range Interpretation Comments POC-GLUCOSE METER 108 mg/dL 70-110 : TESTED A T [facility] [address] (BEAKER) (test code = [place], [address]) [address]: Farm Operator/Techni kelle ID = [id number] for Herminia Watkins POCT-GLUCOSE [id number] 07:38:21 Test Item Value Reference Range Interpretation Comments POC-GLUCOSE METER 185 mg/dL 70-110 H : TESTED A T [facility] [address] (BEAKER) (test code = [place], [address]) [address]: Farm Operator/Techni kelle ID = [id number] for Maranda Menjivar BASIC METABOLIC [id number] 07:20:13 Test Item Value Reference Range Interpretation [...] S NOT APPLICABLE FOR DIALYSIS PATIEN TS. Farm Operator ID - HIEN [id number] 06:54:10 Test Item Value Reference Range Interpretation Comments PHOSPHORUS (BEAKER) (test code = 4.6 mg/dL 2.3-4.7 604) Farm Operator ID - HIEN [id number] 06:54:09 Test Item Value Reference Range Interpretation Comments MAGNESIUM (BEAKER) (test code = 2.2 mg/dL 1.6-2.6 627) Farm Operator ID - HIEN [facility] W/PLT COUNT & AUTO [id number] 04:53:46 Test Item Value Reference Range Interpretation [...] PERCENT (BEAKER) (test code = 2801) POCT-GLUCOSE [id number] 21:34:14 Test Item Value Reference Range Interpretation Comments POC-GLUCOSE METER 260 mg/dL 70-110 H : TESTED A T [facility] [address] (BEAKER) (test code = [place], [address]) [address]: Farm Operator/Techni kelle ID = [id number] for GHADA BECK POCT-GLUCOSE [id number] 16:27:30 Test Item Value Reference Range Interpretation Comments POC-GLUCOSE METER 170 mg/dL 70-110 H : TESTED A T [facility] [address] (BEAKER) (test code = [address] [facility], 1538) [address]: Farm Operator/Techni kelle ID = [id number] for Soledad Rivera 2D Echo W/Doppler(CW/PW/Color)2021-06-09 16:08:58Ejection FractionSLEH ECHO HEARTLAB [facility]2D Echo W/Doppler(CW/PW/Color)2021-06-09 16:08:58Ejection FractionSLEH ECHO HEARTLAB [facility]2D Echo W/Doppler(CW/PW/Color) 2021-06-09 16:08:58Ejection FractionSLEH ECHO HEARTLAB [facility]2D Echo W/Doppler(CW/PW/Color)2021-06-09 16:08:58Ejection [facility] W/Doppler(CW/PW/Color)2021-06-09 16:08:58Ejection FractionSLEH ECHO HEARTLAB [facility]2D Echo W/Doppler(CW/PW/Color) 2021-06-09 16:08:58Ejection FractionSLEH ECHO HEARTLAB [facility]2D Echo W/Doppler(CW/PW/Color)2021-06-09 16:08:58Ejection FractionSLEH ECHO HEARTLAB [facility]2D Echo W/Doppler(CW/PW/Color)2021-06-09 16:08:58Ejection FractionSLEH ECHO HEARTLAB [facility] W/Doppler(CW/PW/Color) 2021-06-09 16:08:58Ejection FractionSLEH ECHO HEARTLAB [facility] W/Doppler(CW/PW/Color)2021-06-09 16:08:58Ejection FractionSLEH ECHO HEARTLAB [facility] W/Doppler(CW/PW/Color)2021-06-09 16:08:58Ejection FractionSLEH ECHO HEARTLAB [facility] W/Doppler(CW/PW/Color) 2021-06-09 16:08:58Ejection FractionSLEH ECHO HEARTLAB [facility] W/Doppler(CW/PW/Color)2021-06-09 16:08:58Ejection FractionSLEH ECHO HEARTLAB [facility] W/Doppler(CW/PW/Color)2021-06-09 16:08:58Ejection FractionSLEH ECHO [facility]ARTLAB [facility] [id number] 16:06:54Ejection FractionSLEH ECHO [facility]ARTLAB [facility] [id number] 16:06:54Ejection FractionSLEH ECHO [facility]ARTLAB [facility] [id number] 16:06:54Ejection FractionSLEH ECHO HEARTLAB [facility] [id number] 16:06:54Ejection FractionSLEH ECHO HEARTLAB [facility] [id number] 16:06:54Ejection FractionSLEH ECHO HEARTLAB [facility] [id number] 16:06:54Ejection FractionSLEH ECHO HEARTLAB [facility] [id number] 16:06:54Ejection FractionSLEH ECHO HEARTLAB [facility] [id number] 16:06:54Ejection FractionSLEH ECHO HEARTLAB [facility] [id number] 16:06:54Ejection FractionSLEH ECHO HEARTLAB [facility] [id number] 16:06:54Ejection FractionSLEH ECHO HEARTLAB [facility] [id number] 16:06:54Ejection FractionSLEH ECHO HEARTLAB [facility] [id number] 16:06:54Ejection FractionSLEH ECHO HEARTLAB [facility] [id number] 16:06:54Ejection FractionSLEH ECHO HEARTLAB [facility] [id number] 16:06:54Ejection FractionSLEH ECHO HEARTLAB [facility] Hospital[facility]SE [id number] 06:23:12 Test Item Value Reference Range Interpretation Comments POC-GLUCOSE METER 250 mg/dL 70-110 H : TESTED A T [facility] [address] (BEAKER) (test code = [address] [facility], 1538) [address]: Farm Operator/Techni kelle ID = [id number] for Tavia Bruce BASIC METABOLIC [id number] 04:37:07 Test Item Value Reference Range Interpretation [...] S NOT APPLICABLE FOR DIALYSIS PATIEN TS. Farm Operator ID - RAKAN [id number] 04:30:49 Test Item Value Reference Range Interpretation Comments PHOSPHORUS (BEAKER) (test code = 3.8 mg/dL 2.3-4.7 604) Farm Operator ID - RAKAN [id number] 04:30:48 Test Item Value Reference Range Interpretation Comments MAGNESIUM (BEAKER) (test code = 2.0 mg/dL 1.6-2.6 627) Farm Operator ID - RAKAN WCBC W/PLT COUNT & AUTO [id number] 03:53:11 Test Item Value Reference Range Interpretation [...] (BEAKER) (test code = 2801) Hepatitis panel, [id number] 23:49:54 Test Item Value Reference Range Interpretation Comments Hep A IgM (test code = Nonreactive Nonreactive 08641-7) Hep B C IgM (test code = Nonreactive Nonreactive 43740-4) Hepatitis C Ab (test code = Nonreactive Nonreactive 78362-9) Hepatitis B surface antigen Nonreactive Nonreactive (test code = 5195-3) BRANDI (test code = BRANDI) Farm Operator ID - DB Lab Interpretation (test Normal code = 19854-9) [facility] [id number] 23:49:54 Test Item Value Reference Range Interpretation Comments Hep A IgM (test code = Nonreactive Nonreactive 03032-0) Hep B C IgM (test code = Nonreactive Nonreactive 57296-4) Hepatitis C Ab (test code = Nonreactive Nonreactive 98390-9) Hepatitis B surface antigen Nonreactive Nonreactive (test code = 5195-3) BRANDI (test code = BRANDI) Farm Operator ID - DB Lab Interpretation (test Normal code = 93584-1) [facility], [id number] 23:49:54 Test Item Value Reference Range Interpretation Comments Hep A IgM (test code = Nonreactive Nonreactive 20056-5) Hep B C IgM (test code = Nonreactive Nonreactive 68879-0) Hepatitis C Ab (test code = Nonreactive Nonreactive 92049-9) Hepatitis B surface antigen Nonreactive Nonreactive (test code = 5195-3) BRANDI (test code = BRANDI) Farm Operator ID - DB Lab Interpretation (test Normal code = 36220-7) [facility] panel, [id number] 23:49:54 Test Item Value Reference Range Interpretation Comments Hep A IgM (test code = Nonreactive Nonreactive 27817-9) Hep B C IgM (test code = Nonreactive Nonreactive 80313-5) Hepatitis C Ab (test code = Nonreactive Nonreactive 87847-4) Hepatitis B surface antigen Nonreactive Nonreactive (test code = 5195-3) BRANDI (test code = BRANDI) Farm Operator ID - DB Lab Interpretation (test Normal code = 34026-4) [facility] panel, [id number] 23:49:54 Test Item Value Reference Range Interpretation Comments Hep A IgM (test code = Nonreactive Nonreactive 61618-9) Hep B C IgM (test code = Nonreactive Nonreactive 96554-9) Hepatitis C Ab (test code = Nonreactive Nonreactive 87930-3) Hepatitis B surface antigen Nonreactive Nonreactive (test code = 5195-3) BRANDI (test code = BRANDI) Farm Operator ID - DB Lab Interpretation (test Normal code = 45685-8) [facility] panel, [id number] 23:49:54 Test Item Value Reference Range Interpretation Comments Hep A IgM (test code = Nonreactive Nonreactive 98748-6) Hep B C IgM (test code = Nonreactive Nonreactive 63509-8) Hepatitis C Ab (test code = Nonreactive Nonreactive 23441-8) Hepatitis B surface antigen Nonreactive Nonreactive (test code = 5195-3) BRANDI (test code = BRANDI) Farm Operator ID - DB Lab Interpretation (test Normal code = 71403-3) [facility] panel, [id number] 23:49:54 Test Item Value Reference Range Interpretation Comments Hep A IgM (test code = Nonreactive Nonreactive 89783-6) Hep B C IgM (test code = Nonreactive Nonreactive 36511-7) Hepatitis C Ab (test code = Nonreactive Nonreactive 76581-2) Hepatitis B surface antigen Nonreactive Nonreactive (test code = 5195-3) BRANDI (test code = BRANDI) Farm Operator ID - DB Lab Interpretation (test Normal code = 17683-8) [facility] panel, [id number] 23:49:54 Test Item Value Reference Range Interpretation Comments Hep A IgM (test code = Nonreactive Nonreactive 36214-4) Hep B C IgM (test code = Nonreactive Nonreactive 89939-6) Hepatitis C Ab (test code = Nonreactive Nonreactive 52506-5) Hepatitis B surface antigen Nonreactive Nonreactive (test code = 5195-3) BRANDI (test code = BRANDI) Farm Operator ID - DB Lab Interpretation (test Normal code = 41682-6) [facility] panel, [id number] 23:49:54 Test Item Value Reference Range Interpretation Comments Hep A IgM (test code = Nonreactive Nonreactive 74062-0) Hep B C IgM (test code = Nonreactive Nonreactive 77864-2) Hepatitis C Ab (test code = Nonreactive Nonreactive 27137-0) Hepatitis B surface antigen Nonreactive Nonreactive (test code = 5195-3) BRANDI (test code = BRANDI) Farm Operator ID - DB Lab Interpretation (test Normal code = 71483-2) [facility] panel, [id number] 23:49:54 Test Item Value Reference Range Interpretation Comments Hep A IgM (test code = Nonreactive Nonreactive 10538-1) Hep B C IgM (test code = Nonreactive Nonreactive 42149-5) Hepatitis C Ab (test code = Nonreactive Nonreactive 02641-0) Hepatitis B surface antigen Nonreactive Nonreactive (test code = 5195-3) BRANDI (test code = BRANDI) Farm Operator ID - DB Lab Interpretation (test Normal code = 82426-4) [facility] panel, [id number] 23:49:54 Test Item Value Reference Range Interpretation Comments Hep A IgM (test code = Nonreactive Nonreactive 91028-3) Hep B C IgM (test code = Nonreactive Nonreactive 86039-3) Hepatitis C Ab (test code = Nonreactive Nonreactive 48261-5) Hepatitis B surface antigen Nonreactive Nonreactive (test code = 5195-3) BRANDI (test code = BRANDI) Farm Operator ID - DB Lab Interpretation (test Normal code = 68534-5) [facility] panel, [id number] 23:49:54 Test Item Value Reference Range Interpretation Comments Hep A IgM (test code = Nonreactive Nonreactive 27616-2) Hep B C IgM (test code = Nonreactive Nonreactive 30924-4) Hepatitis C Ab (test code = Nonreactive Nonreactive 67487-4) Hepatitis B surface antigen Nonreactive Nonreactive (test code = 5195-3) BRANDI (test code = BRANDI) Farm Operator ID - DB Lab Interpretation (test Normal code = 78018-3) [facility] panel, [id number] 23:49:54 Test Item Value Reference Range Interpretation Comments Hep A IgM (test code = Nonreactive Nonreactive 65107-0) Hep B C IgM (test code = Nonreactive Nonreactive 02562-1) Hepatitis C Ab (test code = Nonreactive Nonreactive 35228-7) Hepatitis B surface antigen Nonreactive Nonreactive (test code = 5195-3) BRANDI (test code = BRANDI) Farm Operator ID - DB Lab Interpretation (test Normal code = 51305-4) [facility] panel, [id number] 23:49:54 Test Item Value Reference Range Interpretation Comments Hep A IgM (test code = Nonreactive Nonreactive 06910-4) Hep B C IgM (test code = Nonreactive Nonreactive 48120-3) Hepatitis C Ab (test code = Nonreactive Nonreactive 79189-9) Hepatitis B surface antigen Nonreactive Nonreactive (test code = 5195-3) BRANDI (test code = BRANDI) Farm Operator ID - DB Lab Interpretation (test Normal code = 09141-0) [facility] PANEL, [id number] 23:49:54 Test Item Value Reference Range Interpretation Comments HEPATITIS A IGM ANTIBODY (BEAKER) Nonreactive Nonreactive (test code = 498) HEPATITIS B CORE IGM ANTIBODY Nonreactive Nonreactive (BEAKER) (test code = 645) HEPATITIS C ANTIBODY (BEAKER) Nonreactive Nonreactive (test code = 367) HEPATITIS B SURFACE ANTIGEN (2) Nonreactive Nonreactive (BEAKER) (test code = 2585) Farm Operator ID - DBPOCT-GLUCOSE [id number] 21:22:04 Test Item Value Reference Range Interpretation Comments POC-GLUCOSE METER 193 mg/dL 70-110 H : TESTED A T [facility] 6720 (BEAKER) (test code = [place], 1538) [address]: Farm Operator/Techni kelle ID = [id number] for Tavia Bruce Hepatitis B surface [id number] 13:29:36 Test Item Value Reference Range Interpretation Comments Hepatitis B surface Nonreactive Nonreactive antigen (test code = 5195-3) BRANDI (test code = BRANDI) Specimen is considered negative for HBsAg. Lab Interpretation (test Normal code = 14587-5) [facility] [id number] 13:29:36 Test Item Value Reference Range Interpretation Comments Hepatitis B surface Nonreactive Nonreactive antigen (test code = 5195-3) BRANDI (test code = BRANDI) Specimen is considered negative for HBsAg. Lab Interpretation (test Normal code = 86464-2) [facility] [id number] 13:29:36 Test Item Value Reference Range Interpretation Comments Hepatitis B surface Nonreactive Nonreactive antigen (test code = 5195-3) BRANDI (test code = BRANDI) Specimen is considered negative for HBsAg. Lab Interpretation (test Normal code = 32249-3) [facility] [id number] 13:29:36 Test Item Value Reference Range Interpretation Comments Hepatitis B surface Nonreactive Nonreactive antigen (test code = 5195-3) BRANDI (test code = BRANDI) Specimen is considered negative for HBsAg. Lab Interpretation (test Normal code = 81420-4) [facility] [id number] 13:29:36 Test Item Value Reference Range Interpretation Comments Hepatitis B surface Nonreactive Nonreactive antigen (test code = 5195-3) BRANDI (test code = BRANDI) Specimen is considered negative for HBsAg. Lab Interpretation (test Normal code = 49904-7) [facility] [id number] 13:29:36 Test Item Value Reference Range Interpretation Comments Hepatitis B surface Nonreactive Nonreactive antigen (test code = 5195-3) BRANDI (test code = BRANDI) Specimen is considered negative for HBsAg. Lab Interpretation (test Normal code = 86617-1) [facility] [id number] 13:29:36 Test Item Value Reference Range Interpretation Comments Hepatitis B surface Nonreactive Nonreactive antigen (test code = 5195-3) BRANDI (test code = BRANDI) Specimen is considered negative for HBsAg. Lab Interpretation (test Normal code = 06471-4) [facility] [id number] 13:29:36 Test Item Value Reference Range Interpretation Comments Hepatitis B surface Nonreactive Nonreactive antigen (test code = 5195-3) BRANDI (test code = BRANDI) Specimen is considered negative for HBsAg. Lab Interpretation (test Normal code = 69629-0) [facility] B surface [id number] 13:29:36 Test Item Value Reference Range Interpretation Comments Hepatitis B surface Nonreactive Nonreactive antigen (test code = 5195-3) BRANDI (test code = BRANDI) Specimen is considered negative for HBsAg. Lab Interpretation (test Normal code = 99811-6) [facility] [id number] 13:29:36 Test Item Value Reference Range Interpretation Comments Hepatitis B surface Nonreactive Nonreactive antigen (test code = 5195-3) BRANDI (test code = BRANDI) Specimen is considered negative for HBsAg. Lab Interpretation (test Normal code = 38641-6) [facility] [id number] 13:29:36 Test Item Value Reference Range Interpretation Comments Hepatitis B surface Nonreactive Nonreactive antigen (test code = 5195-3) BRANDI (test code = BRANDI) Specimen is considered negative for HBsAg. Lab Interpretation (test Normal code = 84899-1) [facility] [id number] 13:29:36 Test Item Value Reference Range Interpretation Comments Hepatitis B surface Nonreactive Nonreactive antigen (test code = 5195-3) BRANDI (test code = BRANDI) Specimen is considered negative for HBsAg. Lab Interpretation (test Normal code = 49246-5) [facility] [id number] 13:29:36 Test Item Value Reference Range Interpretation Comments Hepatitis B surface Nonreactive Nonreactive antigen (test code = 5195-3) BRANDI (test code = BRANDI) Specimen is considered negative for HBsAg. Lab Interpretation (test Normal code = 34917-5) [facility] B surface [id number] 13:29:36 Test Item Value Reference Range Interpretation Comments Hepatitis B surface Nonreactive Nonreactive antigen (test code = 5195-3) BRANDI (test code = BRANDI) Specimen is considered negative for HBsAg. Lab Interpretation (test Normal code = 00618-7) [facility] SURFACE [id number] 13:29:36 Test Item Value Reference Range Interpretation Comments HEPATITIS B SURFACE ANTIGEN (2) Nonreactive Nonreactive (BEAKER) (test code = 2585) Specimen is considered negative for HBsAg.U/S, ABDOMINAL, [id number] 13:10:00Abdomen limited area? Add comment if clarification is needed.- >LiverReason for exam:->hepatic nodularity reported [facility] : 1955 [...] [place] MDReport Verified Date/Time: 06/08/2021 13:10:45 SARS-COV2/RT-PCR ([facility])2021-06-08 12:35:29 Test Item Value Reference Range Interpretation Comments SARS-COV2/RT-PCR (test Negative Not Detected, Negative, code = 4235279) See external report for linked test SARS-COV-[address] [facility] ALICIA (test code = 0575026) Negative result for this test determines that [...] of the Act.Fact Sheet for Healthcare Prov iders:https://www.[employer]/sites/default/files/product/documents/Fact_Sheet_HC _Vysvkgneu_Lqnr_IAKU-RtC-5.pdfFact Sheet for Healthcare Patients:https://www.[employer]/sites/default/files/product/docume nts/Qdnp_Garuo_Jskxudxb_Wdao_BIFV-NcB-3.pdfPerforming Laboratory:[facility], [place] [address]Pwffzax D, 25-Hydroxy 2021-06-08 11:10:06 Test Item Value Reference Range Interpretation Comments Vitamin D 25-Hydroxy 16.7 ng/mL 6.6-49.9 (test code = 2764) BRANDI (test code = BRANDI) Effective 01/12/2017: Reference Range ChangeNew: 6.6-49.9 ng/mL Previous: 13.0-47.8 ng/mL Recommended Vitamin D Target Range: 30.0-40.0 ng/mLOperator ID - DB Lab Interpretation (test Normal code = 32349-6) [facility] CenterV[facility] D, 60-Wmsvtta8366-21-07 11:10:06 Test Item Value Reference Range Interpretation Comments Vitamin D 25-Hydroxy 16.7 ng/mL 6.6-49.9 (test code = 2764) BRANDI (test code = BRANDI) Effective 01/12/2017: Reference Range ChangeNew: 6.6-49.9 ng/mL Previous: 13.0-47.8 ng/mL Recommended Vitamin D Target Range: 30.0-40.0 ng/mLOperator ID - DB Lab Interpretation (test Normal code = 49146-0) [facility] CenterV[facility], 05-Ffcuhit9870-22-07 11:10:06 Test Item Value Reference Range Interpretation Comments Vitamin D 25-Hydroxy 16.7 ng/mL 6.6-49.9 (test code = 2764) BRANDI (test code = BRANDI) Effective 01/12/2017: Reference Range ChangeNew: 6.6-49.9 ng/mL Previous: 13.0-47.8 ng/mL Recommended Vitamin D Target Range: 30.0-40.0 ng/mLOperator ID - DB Lab Interpretation (test Normal code = 88779-8) [facility] CenterV[facility], [id number] 11:10:06 Test Item Value Reference Range Interpretation Comments Vitamin D 25-Hydroxy 16.7 ng/mL 6.6-49.9 (test code = 2764) BRANDI (test code = BRANDI) Effective 01/12/2017: Reference Range ChangeNew: 6.6-49.9 ng/mL Previous: 13.0-47.8 ng/mL Recommended Vitamin D Target Range: 30.0-40.0 ng/mLOperator ID - DB Lab Interpretation (test Normal code = 34929-9) [facility], 80-Gjbvhvt3766-94-07 11:10:06 Test Item Value Reference Range Interpretation Comments Vitamin D 25-Hydroxy 16.7 ng/mL 6.6-49.9 (test code = 2764) BRANDI (test code = BRANDI) Effective 01/12/2017: Reference Range ChangeNew: 6.6-49.9 ng/mL Previous: 13.0-47.8 ng/mL Recommended Vitamin D Target Range: 30.0-40.0 ng/mLOperator ID - DB Lab Interpretation (test Normal code = 73150-0) [facility], 61-Kddrkzo8092-02-07 11:10:06 Test Item Value Reference Range Interpretation Comments Vitamin D 25-Hydroxy 16.7 ng/mL 6.6-49.9 (test code = 2764) BRANDI (test code = BRANDI) Effective 01/12/2017: Reference Range ChangeNew: 6.6-49.9 ng/mL Previous: 13.0-47.8 ng/mL Recommended Vitamin D Target Range: 30.0-40.0 ng/mLOperator ID - DB Lab Interpretation (test Normal code = 29717-3) [facility] CenterV[facility], 22-Fenryuk8996-27-07 11:10:06 Test Item Value Reference Range Interpretation Comments Vitamin D 25-Hydroxy 16.7 ng/mL 6.6-49.9 (test code = 2764) BRANDI (test code = BRANDI) Effective 01/12/2017: Reference Range ChangeNew: 6.6-49.9 ng/mL Previous: 13.0-47.8 ng/mL Recommended Vitamin D Target Range: 30.0-40.0 ng/mLOperator ID - DB Lab Interpretation (test Normal code = 29718-1) [facility], 44-Lpworvg1809-97-07 11:10:06 Test Item Value Reference Range Interpretation Comments Vitamin D 25-Hydroxy 16.7 ng/mL 6.6-49.9 (test code = 2764) BRANDI (test code = BRANDI) Effective 01/12/2017: Reference Range ChangeNew: 6.6-49.9 ng/mL Previous: 13.0-47.8 ng/mL Recommended Vitamin D Target Range: 30.0-40.0 ng/mLOperator ID - DB Lab Interpretation (test Normal code = 94961-8) [facility], 71-Ibzexyc7749-10-07 11:10:06 Test Item Value Reference Range Interpretation Comments Vitamin D 25-Hydroxy 16.7 ng/mL 6.6-49.9 (test code = 2764) BRANDI (test code = BRANDI) Effective 01/12/2017: Reference Range ChangeNew: 6.6-49.9 ng/mL Previous: 13.0-47.8 ng/mL Recommended Vitamin D Target Range: 30.0-40.0 ng/mLOperator ID - DB Lab Interpretation (test Normal code = 13151-0) [facility], 65-Covpmgc8387-45-07 11:10:06 Test Item Value Reference Range Interpretation Comments Vitamin D 25-Hydroxy 16.7 ng/mL 6.6-49.9 (test code = 2764) BRANDI (test code = BRANDI) Effective 01/12/2017: Reference Range ChangeNew: 6.6-49.9 ng/mL Previous: 13.0-47.8 ng/mL Recommended Vitamin D Target Range: 30.0-40.0 ng/mLOperator ID - DB Lab Interpretation (test Normal code = 91656-9) [facility], 15-Xngyemx4978-36-07 11:10:06 Test Item Value Reference Range Interpretation Comments Vitamin D 25-Hydroxy 16.7 ng/mL 6.6-49.9 (test code = 2764) BRANDI (test code = BRANDI) Effective 01/12/2017: Reference Range ChangeNew: 6.6-49.9 ng/mL Previous: 13.0-47.8 ng/mL Recommended Vitamin D Target Range: 30.0-40.0 ng/mLOperator ID - DB Lab Interpretation (test Normal code = 65669-5) [facility], 14-Gvywvho6421-23-07 11:10:06 Test Item Value Reference Range Interpretation Comments Vitamin D 25-Hydroxy 16.7 ng/mL 6.6-49.9 (test code = 2764) BRANDI (test code = BRANDI) Effective 01/12/2017: Reference Range ChangeNew: 6.6-49.9 ng/mL Previous: 13.0-47.8 ng/mL Recommended Vitamin D Target Range: 30.0-40.0 ng/mLOperator ID - DB Lab Interpretation (test Normal code = 61408-2) [facility], 14-Sialiin1978-73-07 11:10:06 Test Item Value Reference Range Interpretation Comments Vitamin D 25-Hydroxy 16.7 ng/mL 6.6-49.9 (test code = 2764) BRANDI (test code = BRANDI) Effective 01/12/2017: Reference Range ChangeNew: 6.6-49.9 ng/mL Previous: 13.0-47.8 ng/mL Recommended Vitamin D Target Range: 30.0-40.0 ng/mLOperator ID - DB Lab Interpretation (test Normal code = 24002-2) [facility], 87-Vphcqxv5256-32-07 11:10:06 Test Item Value Reference Range Interpretation Comments Vitamin D 25-Hydroxy 16.7 ng/mL 6.6-49.9 (test code = 2764) BRANDI (test code = BRANDI) Effective 01/12/2017: Reference Range ChangeNew: 6.6-49.9 ng/mL Previous: 13.0-47.8 ng/mL Recommended Vitamin D Target Range: 30.0-40.0 ng/mLOperator ID - DB Lab Interpretation (test Normal code = 16933-1) [facility] CenterVIT[facility]IN D, 37-LWHQPVZ4978-55-07 11:10:06 Test Item Value Reference Range Interpretation Comments VITAMIN D 25-OH (BEAKER) (test 16.7 ng/mL 6.6-49.9 code = 2764) Effective 01/12/2017: Reference Range ChangeNew: 6.6-49.9 ng/mL Previous: 13.0- 47.8 ng/mLRecommendedVitamin D Target Range: 30.0-40.0 ng/mLOperator ID - DBPTH, fzfoub5625-04-22 11:05:08 Test Item Value Reference Range Interpretation Comments PTH (test code = 2731-8) 449.7 pg/mL 8.5-72.5 H BRANDI (test code = BRANDI) Farm Operator ID - ADMIN Lab Interpretation (test Abnormal code = 68841-2) [facility], izxszz9699-18-07 11:05:08 Test Item Value Reference Range Interpretation Comments PTH (test code = 2731-8) 449.7 pg/mL 8.5-72.5 H BRANDI (test code = BRANDI) Farm Operator ID - ADMIN Lab Interpretation (test Abnormal code = 11509-2) [facility], [id number] 11:05:08 Test Item Value Reference Range Interpretation Comments PTH (test code = 2731-8) 449.7 pg/mL 8.5-72.5 H BRANDI (test code = BRANDI) Farm Operator ID - ADMIN Lab Interpretation (test Abnormal code = 73568-1) [facility], [id number] 11:05:08 Test Item Value Reference Range Interpretation Comments PTH (test code = 2731-8) 449.7 pg/mL 8.5-72.5 H BRANDI (test code = BRANDI) Farm Operator ID - ADMIN Lab Interpretation (test Abnormal code = 39296-3) [facility], [id number] 11:05:08 Test Item Value Reference Range Interpretation Comments PTH (test code = 2731-8) 449.7 pg/mL 8.5-72.5 H BRANDI (test code = BRANDI) Farm Operator ID - ADMIN Lab Interpretation (test Abnormal code = 23537-9) [facility], [id number] 11:05:08 Test Item Value Reference Range Interpretation Comments PTH (test code = 2731-8) 449.7 pg/mL 8.5-72.5 H BRANDI (test code = BRANDI) Farm Operator ID - ADMIN Lab Interpretation (test Abnormal code = 13889-7) [facility], [id number] 11:05:08 Test Item Value Reference Range Interpretation Comments PTH (test code = 2731-8) 449.7 pg/mL 8.5-72.5 H BRANDI (test code = BRANDI) Farm Operator ID - ADMIN Lab Interpretation (test Abnormal code = 32013-2) [facility], dxmzno0860-69-87 11:05:08 Test Item Value Reference Range Interpretation Comments PTH (test code = 2731-8) 449.7 pg/mL 8.5-72.5 H BRANDI (test code = BRANDI) Farm Operator ID - ADMIN Lab Interpretation (test Abnormal code = 14382-9) [facility], [id number] 11:05:08 Test Item Value Reference Range Interpretation Comments PTH (test code = 2731-8) 449.7 pg/mL 8.5-72.5 H BRANDI (test code = BRANDI) Farm Operator ID - ADMIN Lab Interpretation (test Abnormal code = 47993-2) [facility], [id number] 11:05:08 Test Item Value Reference Range Interpretation Comments PTH (test code = 2731-8) 449.7 pg/mL 8.5-72.5 H BRANDI (test code = BRANDI) Farm Operator ID - ADMIN Lab Interpretation (test Abnormal code = 46642-3) [facility], [id number] 11:05:08 Test Item Value Reference Range Interpretation Comments PTH (test code = 2731-8) 449.7 pg/mL 8.5-72.5 H BRANDI (test code = BRANDI) Farm Operator ID - ADMIN Lab Interpretation (test Abnormal code = 93589-6) [facility], [id number] 11:05:08 Test Item Value Reference Range Interpretation Comments PTH (test code = 2731-8) 449.7 pg/mL 8.5-72.5 H BRANDI (test code = BRANDI) Farm Operator ID - ADMIN Lab Interpretation (test Abnormal code = 44161-0) [facility], [id number] 11:05:08 Test Item Value Reference Range Interpretation Comments PTH (test code = 2731-8) 449.7 pg/mL 8.5-72.5 H BRANDI (test code = BRANDI) Farm Operator ID - ADMIN Lab Interpretation (test Abnormal code = 74336-7) [facility], [id number] 11:05:08 Test Item Value Reference Range Interpretation Comments PTH (test code = 2731-8) 449.7 pg/mL 8.5-72.5 H BRANDI (test code = BRANDI) Farm Operator ID - ADMIN Lab Interpretation (test Abnormal code = 31066-2) [facility], [id number] 11:05:08 Test Item Value Reference Range Interpretation Comments PARATHYROID HORMONE INTACT 449.7 pg/mL 8.5-72.5 H (BEAKER) (test code = 577) Farm Operator ID - QEPCZDVSFQBBW3472-55-39 09:50:35 Test Item Value Reference Range Interpretation Comments FERRITIN (BEAKER) (test code = 926.02 ng/mL 5.00-275.00 H 361) Farm Operator ID - ADMINIRON, TIBC, % SAT. (WITHOUT FERRITIN)2021-06-08 09:30:51 Test Item Value Reference Range Interpretation Comments IRON (BEAKER) (test code = 547) 110.0 ug/dL 40.0-160.0 TOTAL IRON BINDING CAPACITY 135 ug/dL 250-450 L (BEAKER) (test code = 769) IRON % SATURATION (2) (BEAKER) 81 % 20-55 H (test code = 2590) Farm Operator ID - ADMINPOCT-GLUCOSE [id number] 07:11:26 Test Item Value Reference Range Interpretation Comments POC-GLUCOSE METER 199 mg/dL 70-110 H : TESTED A T [facility] 6720 (AKASH) (test code = [place], 1538) [address]: Farm Operator/Techni kelle ID = [id number] for Tavia Bruce Vitamin [id number] 06:28:47 Test Item Value Reference Range Interpretation Comments Vitamin B12 (test code = 1626 pg/mL 213-816 H 2132-9) BRANDI (test code = BRANDI) Farm Operator ID - ADMIN Lab Interpretation (test Abnormal code = 80348-2) [facility] [id number] 06:28:47 Test Item Value Reference Range Interpretation Comments Vitamin B12 (test code = 1626 pg/mL 213-816 H 2132-9) BRANDI (test code = BRANDI) Farm Operator ID - ADMIN Lab Interpretation (test Abnormal code = 87850-8) [facility] [id number] 06:28:47 Test Item Value Reference Range Interpretation Comments Vitamin B12 (test code = 1626 pg/mL 213-816 H 2132-9) BRANDI (test code = BRANDI) Farm Operator ID - ADMIN Lab Interpretation (test Abnormal code = 85154-1) [facility] [id number] 06:28:47 Test Item Value Reference Range Interpretation Comments Vitamin B12 (test code = 1626 pg/mL 213-816 H 2132-9) BRANDI (test code = BRANDI) Farm Operator ID - ADMIN Lab Interpretation (test Abnormal code = 18577-7) [facility] [id number] 06:28:47 Test Item Value Reference Range Interpretation Comments Vitamin B12 (test code = 1626 pg/mL 213-816 H 2132-9) BRANDI (test code = BRANDI) Farm Operator ID - ADMIN Lab Interpretation (test Abnormal code = 25571-5) [facility] [id number] 06:28:47 Test Item Value Reference Range Interpretation Comments Vitamin B12 (test code = 1626 pg/mL 213-816 H 2132-9) BRANDI (test code = BRANDI) Farm Operator ID - ADMIN Lab Interpretation (test Abnormal code = 59385-3) [facility] [id number] 06:28:47 Test Item Value Reference Range Interpretation Comments Vitamin B12 (test code = 1626 pg/mL 213-816 H 2132-9) BRANDI (test code = BRANDI) Farm Operator ID - ADMIN Lab Interpretation (test Abnormal code = 95725-1) [facility] [id number] 06:28:47 Test Item Value Reference Range Interpretation Comments Vitamin B12 (test code = 1626 pg/mL 213-816 H 2132-9) BRANDI (test code = BRANDI) Farm Operator ID - ADMIN Lab Interpretation (test Abnormal code = 29894-3) [facility] [id number] 06:28:47 Test Item Value Reference Range Interpretation Comments Vitamin B12 (test code = 1626 pg/mL 213-816 H 2132-9) BRANDI (test code = BRANDI) Farm Operator ID - ADMIN Lab Interpretation (test Abnormal code = 22065-6) [facility] [id number] 06:28:47 Test Item Value Reference Range Interpretation Comments Vitamin B12 (test code = 1626 pg/mL 213-816 H 2132-9) BRANDI (test code = BRANDI) Farm Operator ID - ADMIN Lab Interpretation (test Abnormal code = 07269-9) [facility] [id number] 06:28:47 Test Item Value Reference Range Interpretation Comments Vitamin B12 (test code = 1626 pg/mL 213-816 H 2132-9) BRANDI (test code = BRANDI) Farm Operator ID - ADMIN Lab Interpretation (test Abnormal code = 47557-9) [facility] [id number] 06:28:47 Test Item Value Reference Range Interpretation Comments Vitamin B12 (test code = 1626 pg/mL 213-816 H 2132-9) BRANDI (test code = BRANDI) Farm Operator ID - ADMIN Lab Interpretation (test Abnormal code = 47364-0) [facility] [id number] 06:28:47 Test Item Value Reference Range Interpretation Comments Vitamin B12 (test code = 1626 pg/mL 213-816 H 2132-9) BRANDI (test code = BRANDI) Farm Operator ID - ADMIN Lab Interpretation (test Abnormal code = 52088-9) [facility] [id number] 06:28:47 Test Item Value Reference Range Interpretation Comments Vitamin B12 (test code = 1626 pg/mL 213-816 H 2132-9) BRANDI (test code = BRANDI) Farm Operator ID - ADMIN Lab Interpretation (test Abnormal code = 39605-6) [facility] Center[facility]IT[facility]IN [id number] 06:28:47 Test Item Value Reference Range Interpretation Comments VITAMIN B12 (BEAKER) (test code = 1626 pg/mL 213-816 H 774) Farm Operator ID - ADMINBASIC METABOLIC [id number] 06:22:27 Test Item Value Reference Range Interpretation [...] S NOT APPLICABLE FOR DIALYSIS PATIEN TS. Farm Operator ID - [id number] 06:08:16 Test Item Value Reference Range Interpretation Comments MAGNESIUM (BEAKER) (test code = 2.3 mg/dL 1.6-2.6 627) Farm Operator ID - [id number] 06:08:16 Test Item Value Reference Range Interpretation Comments PHOSPHORUS (BEAKER) (test code = 5.6 mg/dL 2.3-4.7 H 604) Farm Operator ID - DBPROTHROMBIN TIME/HAZ8310-11-16 05:55:08 Test Item Value Reference Range Interpretation Comments PROTIME (BEAKER) 14.2 seconds 11.9-14.2 (test code = 759) INR (BEAKER) (test 1.12 See_Comment [Automat ed message] code = 370) The system [employer] generated this result transmitted ref erence range: <=5.90. The reference range was not used to int erpret this result as normal/abnormal . RECOMMENDED COUMADIN/WARFARIN INR THERAPY RANGESSTANDARD DOSE: 2.0 - 3.0 Includes: PROPHYLAXIS for venous thrombosis, systemic embolization; TREATMENT for venous thrombosis and/or pulmonary embolus.HIGH RISK: Target INR is 2.5-3.5 for patients with mechanical heart valves.CBC W/PLT COUNT & AUTO [id number] 05:42:08 Test Item Value Reference Range Interpretation [...] = 2801) RAD, CHEST, 1 VIEW, NON [id number] 02:35:00Reason for exam:->shortness of breathShould this be performed at the bedside?->Yes [facility] : 1955 [...] [place] MDReport Verified Date/Time: 06/08/2021 02:35:39 POCT-GLUCOSE [id number] 23:26:33 Test Item Value Reference Range Interpretation Comments POC-GLUCOSE METER 279 mg/dL 70-110 H : TESTED A T [facility] 67[address] (BEAKER) (test code = [place], 1538) [address]: Farm Operator/Techni kelle ID = [id number] for Tavia Bruce COMPREHENSIVE METABOLIC [id number] 22:28:11 Test Item Value Reference Range Interpretation [...] S NOT APPLICABLE FOR DIALYSIS PATIEN TS. Farm Operator ID - DBLos [facility]ycin [facility], [id number] 22:19:31 Test Item Value Reference Range Interpretation Comments Vancomycin Rm (test 16.1 ug/mL code = 13452-4) BRANDI (test code = Reference Range: No BRANDI) NormalsOperator ID - DB [facility], [id number] 22:19:31 Test Item Value Reference Range Interpretation Comments Vancomycin Rm (test 16.1 ug/mL code = 61862-3) BRANDI (test code = Reference Range: No BRANDI) NormalsOperator ID - [facility], [id number] 22:19:31 Test Item Value Reference Range Interpretation Comments Vancomycin Rm (test 16.1 ug/mL code = 41698-5) BRANDI (test code = Reference Range: No BRANDI) NormalsOperator ID - DB [facility], [id number] 22:19:31 Test Item Value Reference Range Interpretation Comments Vancomycin Rm (test 16.1 ug/mL code = 96746-3) BRANDI (test code = Reference Range: No BRANDI) NormalsOperator ID - DB [facility], [id number] 22:19:31 Test Item Value Reference Range Interpretation Comments Vancomycin Rm (test 16.1 ug/mL code = 91113-4) BRANDI (test code = Reference Range: No BRANDI) NormalsOperator ID - DB [facility], [id number] 22:19:31 Test Item Value Reference Range Interpretation Comments Vancomycin Rm (test 16.1 ug/mL code = 72550-5) BRANDI (test code = Reference Range: No BRANDI) NormalsOperator ID - DB [facility], [id number] 22:19:31 Test Item Value Reference Range Interpretation Comments Vancomycin Rm (test 16.1 ug/mL code = 64812-2) BRANDI (test code = Reference Range: No BRANDI) NormalsOperator ID - DB [facility], [id number] 22:19:31 Test Item Value Reference Range Interpretation Comments Vancomycin Rm (test 16.1 ug/mL code = 02474-8) BRANDI (test code = Reference Range: No BRANDI) NormalsOperator ID - DB [facility], [id number] 22:19:31 Test Item Value Reference Range Interpretation Comments Vancomycin Rm (test 16.1 ug/mL code = 13971-5) BRANDI (test code = Reference Range: No BRANDI) NormalsOperator ID - DB [facility], [id number] 22:19:31 Test Item Value Reference Range Interpretation Comments Vancomycin Rm (test 16.1 ug/mL code = 94318-3) BRANDI (test code = Reference Range: No BRANDI) NormalsOperator ID - DB [facility], [id number] 22:19:31 Test Item Value Reference Range Interpretation Comments Vancomycin Rm (test 16.1 ug/mL code = 76999-9) BRANDI (test code = Reference Range: No BRANDI) NormalsOperator ID - DB [facility], [id number] 22:19:31 Test Item Value Reference Range Interpretation Comments Vancomycin Rm (test 16.1 ug/mL code = 97050-4) BRANDI (test code = Reference Range: No BRANDI) NormalsOperator ID - DB [facility], [id number] 22:19:31 Test Item Value Reference Range Interpretation Comments Vancomycin Rm (test 16.1 ug/mL code = 60586-8) BRANDI (test code = Reference Range: No BRANDI) NormalsOperator ID - DB [facility], [id number] 22:19:31 Test Item Value Reference Range Interpretation Comments Vancomycin Rm (test 16.1 ug/mL code = 61952-5) BRANDI (test code = Reference Range: No BRANDI) NormalsOperator ID - DB [facility] [place] [facility], [id number] 22:19:31 Test Item Value Reference Range Interpretation Comments VANCOMYCIN RANDOM (BEAKER) (test 16.1 ug/mL code = 523) Reference Range: No NormalsOperator ID - DBCBC W/PLT COUNT & AUTO [id number] 22:05:27 Test Item Value Reference Range Interpretation [...] Interpretation Comments POCT GLU (test code = 1403376688) 129 mg/dL 70-110 H Lab Interpretation (test code = Abnormal 03364-1) [facility] GLUCOSE (AUTOMATED)2021-05-22 17:41:02 Test Item Value Reference Range Interpretation Comments POCT GLU (test code = 8150479175) 120 mg/dL 70-110 H Lab Interpretation (test code = Abnormal 36273-6) [facility] GLUCOSE (AUTOMATED)2021-05-22 13:46:20 Test Item Value Reference Range Interpretation Comments POCT GLU (test code = 9085670954) 174 mg/dL 70-110 H Lab Interpretation (test code = Abnormal 24053-6) [facility] METABOLIC PANEL (NA, K, CL, CO2, GLUCOSE, BUN, CREATININE, CA)2021-05-22 10:34:14 Test Item Value Reference Range Interpretation Comments NA (test code = 128 mmol/L 135-145 L 1952250076) K (test code = 5.2 mmol/L 3.5-5.0 H 7484846547) CL (test code = 95 mmol/L 98-108 L 3218624147) CO2 TOTAL (test code = 24 mmol/L 23-31 6541917260) AGAP (test code = 2-16 0386155026) BUN (test code = 43 mg/dL 7-23 H 1178904928) GLUCOSE (test code = 182 mg/dL 70-110 H 8682245833) CREATININE (test code = 5.93 mg/dL 0.50-1.04 H 1535827061) CALCIUM (test code = 8.0 mg/dL 8.6-10.6 L 9165869180) eGFR (test code = mL/min/1.73m2 9273910791) BRANDI (test code = BRANDI) Association of [...] tests). Lab Interpretation Abnormal (test code = 09741-1) [facility] WITH [id number] 10:25:51 Test Item Value Reference Range Interpretation Comments WBC (test code = See_Comment [Automated 0290-2) message] The sy stem which generated this result transmitted reference range : 4.30 - 11.10 10*3/?L. The reference range was not used to interpret this result as normal/abnormal . RBC (test code = See_Comment L [Automated 909-8) message] The sy stem which generated this [...] (test code = 50.7 fL 39.0-49.9 H 89312-1) RDW-CV (test code = 14.6 % 12.0-15.5 788-0) PLT (test code = See_Comment L [Automated 777-3) message] The sy stem which generated this result transmitted reference range : 166 - 358 10*3/ ?L. The reference r alba was not used to interpret this result as normal/abnormal . MPV (test code = 11.2 fL 9.5-12.9 57119-7) NRBC/100 WBC (test See_Comment [Automat ed code = 0405479580) message] The system which generated this result transmitted reference range : 0.0 - 10.0 /100 WBCs. The refer ence range was not u sed to interpret th is result as normal/abnormal . NRBC x10^3 (test code <0.01 See_Comment [Auto mated = 0232017022) message] The s ystem which generated this result transmitted reference range : 10*3/?L. The reference range was not used to interpret this result as normal/abnormal . GRAN MAT (NEUT) % 75.4 % (test code = 770-8) IMM GRAN % (test code 0.70 % = 0685865317) LYMPH % (test code = 12.5 % 736-9) MONO % (test code = 10.3 % 5905-5) EOS % (test code = 0.8 % 713-8) BASO % (test code = 0.3 % 706-2) GRAN MAT x10^3(ANC) 4.54 10*3/uL 1.88-7.09 (test code = 5347347665) IMM GRAN x10^3 (test 0.04 10*3/uL 0.00-0.06 code = 2566786152) LYMPH x10^3 (test code 0.75 10*3/uL 1.32-3.29 L = 731-0) MONO x10^3 (test code 0.62 10*3/uL 0.33-0.92 = 742-7) EOS x10^3 (test code = 0.05 10*3/uL 0.03-0.39 711-2) BASO x10^3 (test code <0.03 0.01-0.07 = 704-7) Lab Interpretation Abnormal (test code = 79893-4) [facility] [id number] 05:24:06 Test Item Value Reference Range Interpretation Comments NT-proBNP (test code 538770 pg/mL See_Comment H [Autom ated = 5576246655) message] The system which generated this result transmitted reference range : <=125. The reference range was not used to interpret this result as normal/abnormal . BRANDI (test code = BRANDI) Biotin has been reported to cause a negative bias, interpret results relative to patient's use of biotin. Lab Interpretation Abnormal (test code = 17880-2) [facility], [id number] 04:46:54 Test Item Value Reference Range Interpretation Comments GLUCOSE (test code = 0080657369) 107 mg/dL 70-110 Lab Interpretation (test code = Normal 96742-4) [facility] Total [id number] 04:46:34 Test Item Value Reference Range Interpretation Comments T PROTEIN (test code = 7241321265) 6.1 g/dL 6.3-8.2 L Lab Interpretation (test code = Abnormal 13418-3) [facility]LACT[facility] [id number] 04:46:18 Test Item Value Reference Range Interpretation Comments LDH (test code = 6673368327) 311 U/L 300-600 Lab Interpretation (test code = Normal 98546-0) [facility] [id number] 00:24:29 Test Item Value Reference Interpretation Comments Range TROPONIN I (test 0.084 ng/mL See_Comment H [Automated code = 4440715533) message] The system which generated this result [...] biotin. Lab Interpretation Abnormal (test code = 28330-1) [facility] HospitalCyto Pleural [id number] 23:21:29 Test Item Value Reference Range Interpretation Comments Case Report (test code = Non-Gynecologic 5361987919) Cytology ?Case: [id number] ?Authorizing Provider: ?Candido Robison, ?Collected: ? 05/20/2021 1604 ?Ordering Location: ? ? [facility] Medicine Surgery Unit ?Received: ?05/20/2021 1631 ?Pathologist: ? Mariana, ? MD Duc ?Specimen: ? ?PLEURAL, RIGHT ? Final Diagnosis (test v2rkrRYqUKSnl8riBONpo code = 0152879525) GFuZzEwMzNcZnRuYmpcdW MxIHtccnRmMVxlcGljOTY oAHawkfSxNIJvdRAzT6Vl cdleFRhjGJ8gIQ5jbVdmw FFibJRwLCXlStAid3har0 63hWVjd2txHMBAhhwkqUe 4bQuaS71pl8I0EsewP72z qHZsDPM2XHWlPIGodHImA LVhMHP3QRRqwNMpZ5zwIA DnEF6uolmcHPquVSzbYON kzMY3QJBbuWSxV8UcFQQl IUuzIBBtljx6EmPlZm1ha GVyeTcyMFxwYXJkXHBsYW luXGJcZnMyMFxwYXIgQS4 gIFBMRVVSQSwgUklHSFQ7 LKCLT4LSA8RTMPDNAUNrV hiUGKW1KYVflbWvDRUfRM 2jMuFBSAVIFsSyRd3NFX2 BTElHTkFOVCBDRUxMUyBc RwOxPCKPGPJBJ11FPZ7GN VxwYXJccGFyIFBhdWwgWW 86tblmXI6KBLTaqCTuxTJ cbWtedf55WRW8ZJNjBcA6 LzIwMjJccHJvdGVjdDAgX HBsYWluXGZzMjAgICAyOj C2MORLXFRzaonuTML3t8c ydGYxXHNzdGVjZjIyMDAw XLShe5nqIUClsPIpIzQaO zNcZnRuYmpcdWMxXGRlZm Duv0gfg438qMEmw6rmTUT tTzR1vOWpYHXhwVznlpn2 pGvtCjKvKRNxh4hsvrYyW mNoYXJzZXQwIEFyaWFsO3 10CDZlEQmyn8puy9AzEIX plLVvr7N4ODIHHRmdGwLr W737r0kwu7chenNemQL0L IGuDQF9SUmkltQwpfD2RN oruWFxEjM1HHrorlVuLJr ykmWlsjTfItr3GKYhV302 RWW9mIcaq7laIXM2NWJnD ONuItsgYo1gvLTyO131VI GkIXZTYIRvnWu7XOYdfeZ oydGfjBGKb039S433v9dp EKHttdPueKrVnvecn4kuB 319XHBhcGVydzEyMjQwXH FgeJGrdIH0FKSaQX2vonl tMWncHIanXHFwreN3ZZDx dGAtF8SbWBGqLE4dmaomM KN8YEweNBThFEH1WvEwQT Fhz7Siccf2DoXlla3gre2 1MIE9f6HbqYktLKI4TLD3 FzKuAc0ehAIjKEEzTF9eU kBdfBXaENDtig08fPevWV pyrvDgiX4aAkEoLFBalZO qOSWbNU4zoLSpYYStrE4h cmxjXHBnYnJkcmhlYWRcc WipzsWzHo5wxEptDLO3DV dmN0ypuU8wNiH9IKmnM2a dbC4fIOw5GZvjoXH1WEZx iG1aPH9yfqfdx5kvGDlaN PphFUFabyZ1iwN4MUBrbA LpI3PhiW1fCSZqDD9ffys gx6doSHQ2IHsqWXYvCMP0 AbIgFMDbi2Otbvh1QsCxi 1DbtQIhXUuqT29yp419KE PqyiSgT8jmvGXxlbchrME zbvdjNYefmrB5LGPzGWJq YWluXGYxXGZzMjBcbGFuZ zEwMzNcaGljaFxmMVxkYm UfVRRfUNadC8jnAmLdQ7N yXGZzMjBccGFyIEkgaGF2 CTLeWWFst30nfAx5QDOoq jqaa4ErUTLqwHLryRDhdY 2zbwTne6jrGZMmRPGeOTU nF0JbBYG6nPWwDLSdeJSq gVT8NS0hcsKzHA4oHTXaJ nkgcmVzaWRlbnRzLCBmZW rsz1qsDX6zQHOdhYowbK0 bhAC0JNDvr0hgzTMgiKJm l2aar3HwgjUwKBfrFEPtT DzwDKJdEELgFM1zDWHucP YperJsp8L4CopmvMJdrup jXwumywP4RKzjyaqnFDNa MTenH4mwQwYfMAYniMyyZ svns8EkLWHtJZRcCkhycU FyfX0= Final Diagnosis Comment u8depLGlPZBicWO7CdRsQ (test code = 5615170886) OMhs1wrs2QcuYQjqPHmBY xjsSYtpbTbhn38xCP9bM4 1PF0zFDKwRtI1IKMabkC4 Lhi6IZKcLFFvtPErD839y 1sey8kfsiLkvIT7gSjaDY QxjpihGhF3AHlyMGErpfn vMOa1QQphRHKyyXE9LTZd qJKeB6OlIMUfOX7nyqw3M AU8OJcxSKYjOcC6EMUwaO DvHLEpiYobGItwd935VRE 5YgOzGTMymjOboMjuwC6y ZnMyMCBTbWVhcnMgYXJlI WHvcPXkH3XbyVJeVBNaVZ 3mJOSjs0whixRxGFTpON5 pB54qlQRas9IpLCpgUIth Y2WqzXDyPY2yRDDod77nE RJqKK2gitMkEbSLuiOiXR tnM79cobExZ0AjiLNxtOQ kyiOyZeabFX4wLKQqtc0= Clinical Information Clinical Hx: ESRD (test code = 2039568076) Gross Description (test p5anrNGbOASypCQ5QcKpJ code = 8494157130) USss3ufh3OknAJyjAZhUE nvxZQhojWbfq38fCS6vW9 2KS5oPKJaKqV2EZSewfU9 Dle8SPOjKITybBBvJ736j 6ccw7lqkvTzcYZ1iHroGQ UnbybhSpU4GXdaZEFzfls qYBd5IDawYMVzpGG7LJSh bRSmB7OhLBMuOE0uxyf6X SX9UEdeXXAvEpE0UAIjdA BaENMecMmsBScwc436QFO 2MrYrFEWvkyR8REodTRKk I2KaO6JjIXbmGOC8HQXaD CBcXHQgMSBcXGZsIFxcbm G5z4zjUKYzaVIaZSF6XPt caWQgNTEwMDIgXFxkYiBP EySmPiCaKNO0ASD0AYMxU Go5NLmlZ3OQFSYkSXI0IQ AxKCw8RdI2XUk8OGOXBm4 pOGS8KNTjOLs5CYS8YKA0 NCBcXHQgMiBcXGZsIFxcZ iBBcmlhbCBcXGZzIDEwIF ctvhY9SDCwVJowTJEsDbF ccGFyXGZzMjJccGFyIEEx LiAgUExFVVJBLCBSSUdIV SvkYFiJPrHLEA9EVMJBVn BGTFVJRFxwYXIgUmVjZWl 3EJDxMuMvi2mzwMAzLJOq RcpxEP4kVHajmIbiioJll HVpZCBccGFyIFByZXBhcm SlRHOxk4dvLUCoTKrrZDG hcGFuaWNvbGFvdSBjeXRv m5OwqwctBQ3aLPTiAx9lJ J2jz3SfbDZuwILgi4Drwh HhgoBxWYDlyCgxayfra3h liPsoa0XauPWfQY45GFXr fWIuJKA1AP2dwMqiGBJ4 Disclaimer (test code = k1uhlOPwJNZuf1oiQMDnh 4808335645) GFuZzEwMzNcZnRuYmpcdW FdKVkjnrGtEClgg1RnS5U yMjAwMFxhbnNpXGRlZmxh dwooYJNpUTF8qlXsRWCeJ WmuCZYvOIqxYu0rjRVbbO tvYbGjIDLte1cpyvJNKNj wYxCeQ418DVFoAPusj4sj p7OuCEFucKXnu0K0MOHHm bwzeMw8cHepY24ku0C8Cy zyK0tcIKBvKSBjT9PsSJ9 dLGPyRsy1DWT6JWZ6SYCo XBHcY1MuPU0yBRIlsWOnZ Cc8x9yljCbsSVClLDE2r3 uxQTecenIlHK6mxn3tsRv 9q6cssnSjBTOhKRKkxSYW IIWuQ7TanVhoYy7keEk3g XkvColyWDG6Xut4RF5oiv 78ymp0iEdzFNIhlifnHkX 3PRifVVXqylrlZVa6CViw UMZtwGF0XBUmjOWxA9GhG KSnUN8ysqb3KFX1TPqxNE OhRpQ2FKIegBIdGXQyrMh pCRmoc943HWM1SnOjCQ5x J3Npe8K4qT7tyHYqKEWmm PDzIkQmTHHfgj4clPSjES wba1NpGBI8laA9qOVcgQU qDGXkFT70Cydam1KrUqcj l9IbV94mqHU6GQzym1mzK N2dMzI0jrNtSSrly8uagL 3kAoW8HBjgYQ9iWM4pLEQ ixS4ctiayMHDsHxTnogcn KSDcnRidniCdSw4neAweF VX8JLanA7zceD4fWkH0JX lpW6sxeQ6jGHy2ZYdjtPB 4RFLmkV4qNE7xrstwu7jb DTxtJAfuTAEzaoJ1vzR6R PAnfUMwX9BkjU0hLYWdDW 4kcmssf6wjDCJ5CViyLDE tEBH3UrYgLXUsu7Oduvy4 EmPmt0QqoSHcSHazJ13vx 645DLXpzuLmV3rngUZval bzmLEddppoBRundnG0QNH gcwXqd0YwRJLqKAF5TZkd AKgtuFVjXYQqbZkae9ulI 3RscGFyXHBsYWluXGYxXG ZzMjBcbGFuZzEwMzNcaGl jaFxmMVxkYmNoXGYxXGxv G9ahPnIiP0VeBGOpFmQol BFsX0uqESomunQmBPAkiy BcxSG0QKldE3y5MUZawqF mtXb5koTgBvKgNUOcLNZ0 XGhslLXfNDSfs0Xsqsxdt MOqJp9ijXEgPEPqjC5hCK ObJAPmDKmtKG3oiOe2VSS ToRDtxHEsSmQQXOZuPM46 laAwJDATolkrs4R0ODpgX MHsc5YvwBYrZ5xww2DlXF Qov54cLH8bq9E0s9uaPVI 8LI5wd9ByYPXouGOmkSTq KUIue8Lwewyom2KgZBWyx zAwn6CpZORlgtGcwEPcKS YspwBtim2wbzHkBLQsLTN jC1EafrnxdLzbzkHyQCEj uo4tkeJgAFZ1DFMMZXTpF QZwi1BicI2xsGZJJQI6eQ Dmeb1ojdTPyJBxTPOeqd9 1YXKuKJ9cM7xmPNOzXCEf ybFyoMEuk8FkNEVnnXD1y ZEjUS1BRfKDj05bOYWnWL MWlvQgGNZwoGybdFV9blA 5wG4aBHbGZLQqTrr+IFRo FELNDZYcSO0kjfBix5Yhs tTfkUapWJAmlXWnu6LlaY Cuf9WmpQnlz5BbsNUzxLV fWM4nIPCdmtrgLHUmSZXR UdVYFZKvlaS5t2EaQXRsT QTqRZE0cGuxhpw1KRPheC 9eZCYrJ8begfoxZWckYTO ci1LqhX7ruRTEsMUum2Ej fTQbaJACyTJmNH7hcfMrR WcEZSmUEPN1ugMmGKVku5 UrSPawZ8hrU28onBfovCl 4bTQ8QYH8nZ3hGgi+IFxw YXJccGFyIEFwcHJvcHJpY NErmSjimkWeK3UvtiUwgX 1kxHYiqdYmHK9kQQ8jY7F 4iDZkAVJyxrFun7ekTQgx dmUgYmVlbiByZXZpZXdlZ QEjs8DuIIwyPHB9GLoyrv BpbmNsdWRpbmcgSCZFLCB GpBZnjLWmFFC8RVwasyDo vqAdQN1hrC7xxLmgtN4fo SLziMS3ocxfRBVrEZEcsU ftIEVzVQ9wxEQzPQIkhpJ KfEswdMSxuY1sD5OdNWEo MBIjch6qZOZnlH1tSSgvv 2VydmljZXMgYXJlIHBlcm Okgj3rGQBgeWPVMD4WJPo dhTAgk7HmfdGnP4gYBOJ8 NUQwNjYwMjgxKSBleGNlc XCjALIcze98BCJjlO1owI pvNAZelE5loL1xkIdhuP1 iEqNrJnSjNNfnND0iHWXr E2utoWDfQSJmFKLdS1wcV oYwmA2mhEehRPwrUqUxPj EmUMjdDBE6yC== Embedded Images (test code = 7066215138) [facility] 23:17:01 Test Item Value Reference Range Interpretation Comments POCT GLU (test code = 5112655737) 109 mg/dL 70-110 Lab Interpretation (test code = Normal 43591-4) [facility] HospitalDIFF CONSULT [id number] 21:50:44 UNREMARKABLE LEUKOCYTES WITH ABSOLUTE LYMPHOPENIA. MODERATE NORMOCYTIC NORMOCHROMIC ANEMIA. MILD THROMBOCYTOPENIA.[facility] VITAMIN B12, [id number] 18:38:08 Test Item Value Reference Range Interpretation Comments VIT B12 (test code = >1000 240-930 H 4413310458) BRANDI (test code = BRANDI) Biotin has been reported to cause a positive bias, interpret results relative to patient's use of biotin. Lab Interpretation (test Abnormal code = 52868-9) [facility] D, [id number] 17:51:01 Test Item Value Reference Range Interpretation Comments VIT D 25OH (test code = 24 ng/mL 25-80 L 72295-4) BRANDI (test code = BRANDI) Deficiency: <20 ng/mLInsufficiency: 20-24 ng/mLOptimal: 25-80 ng/mL Lab Interpretation (test Abnormal code = 23274-7) [facility]OLATE2022-02-[facility] 17:42:20 Test Item Value Reference Range Interpretation Comments FOLATE SER (test code = 6.1 ng/mL 3.0-20.0 Biot in has been 5992401907) reported to cau se a positive bias, interpret resul ts relative to patient's use o f biotin. Lab Interpretation (test Normal code = 64109-4) [facility]2021-05-21 17:17:00 Test Item Value Reference Range Interpretation Comments POCT GLU (test code = 2216647063) 175 mg/dL 70-110 H Lab Interpretation (test code = Abnormal 07593-0) [facility] HospitalTROPONIN [id number] 14:52:32 Test Item Value Reference Interpretation Comments Range TROPONIN I (test 0.109 ng/mL See_Comment H [Automated code = 6334240953) message] The system which generated this result [...] biotin. Lab Interpretation Abnormal (test code = 34485-7) [facility] HospitalIRON [id number] 14:49:31 Test Item Value Reference Range Interpretation Comments IRON (test code = 4500608560) 30 ug/dL 50-160 L TIBC (test code = 1760627352) 185 ug/dL 250-410 L % FE SAT (test code = 4744911379) 16 % 20-50 L Lab Interpretation (test code = Abnormal 03716-3) [facility]2021-05-21 14:06:00 Test Item Value Reference Range Interpretation Comments POCT GLU (test code = 5649684867) 191 mg/dL 70-110 H Lab Interpretation (test code = Abnormal 83495-9) [facility] HospitalFERRITIN [id number] 14:05:25 Test Item Value Reference Range Interpretation Comments FERRITIN (test code = 715.0 ng/mL 11.0-264.0 H 6291847676) BRANDI (test code = BRANDI) Biotin has been reported to cause a negative bias, interpret results relative to patient's use of biotin. Lab Interpretation (test Abnormal code = 85167-2) [facility] HospitalN-TERMINAL [id number] 13:56:37 Test Item Value Reference Range Interpretation Comments NT-proBNP (test code 711572 pg/mL See_Comment H [Autom ated = 0085521866) message] The system which generated this result transmitted reference range : <=125. The reference range was not used to interpret this result as normal/abnormal . BRANDI (test code = BRANDI) Biotin has been reported to cause a negative bias, interpret results relative to patient's use of biotin. Lab Interpretation Abnormal (test code = 82790-5) [facility] HospitalTROPONIN [id number] 13:43:04 Test Item Value Reference Interpretation Comments Range TROPONIN I (test 0.100 ng/mL See_Comment H [Automated code = 3273068222) message] The system which generated this result [...] biotin. Lab Interpretation Abnormal (test code = 92414-8) [facility] HospitalHEPATIC FUNCTION PANEL (16221) (ALB,T.PRO,BILI T,BU/BC,ALT,AST,ALK PHOS)2021-05-21 13:30:03 Test Item Value Reference Range Interpretation Comments TOTAL BILI (test code = 2060528330) 0.7 mg/dL 0.1-1.1 BILI UNCON (test code = 8332433996) 0.0 mg/dL 0.1-1.1 L BILI CONJ (test code = 9016469026) 0.0 mg/dL 0.0-0.3 T PROTEIN (test code = 3119694439) 7.2 g/dL 6.3-8.2 ALBUMIN (test code = 4252776383) 3.5 g/dL 3.5-5.0 ALK PHOS (test code = 3017701621) 156 U/L 34-122 H ALTv (test code = 1742-6) 12 U/L 5-35 AST(SGOT) (test code = 2981328081) 28 U/L 13-40 Lab Interpretation (test code = Abnormal 99869-8) [facility] HospitalCBC WITH [id number] 10:18:09 Test Item Value Reference Range Interpretation Comments WBC (test code = See_Comment [Automated 8347-2) message] The sy stem which generated this result transmitted reference range : 4.30 - 11.10 10*3/?L. The reference range was not used to interpret this result as normal/abnormal . RBC (test code = See_Comment L [Automated 489-8) message] The sy stem which generated this [...] (test code = 52.3 fL 39.0-49.9 H 98554-7) RDW-CV (test code = 14.9 % 12.0-15.5 788-0) PLT (test code = See_Comment L [Automated 777-3) message] The sy stem which generated this result transmitted reference range : 166 - 358 10*3/ ?L. The reference r alba was not used to interpret this result as normal/abnormal . MPV (test code = 11.0 fL 9.5-12.9 03326-6) NRBC/100 WBC (test See_Comment [Automat ed code = 1732124920) message] The system which generated this result transmitted reference range : 0.0 - 10.0 /100 WBCs. The refer ence range was not u sed to interpret th is result as normal/abnormal . NRBC x10^3 (test code <0.01 See_Comment [Auto mated = 4972668905) message] The s ystem which generated this result transmitted reference range : 10*3/?L. The reference range was not used to interpret this result as normal/abnormal . GRAN MAT (NEUT) % 74.4 % (test code = 770-8) IMM GRAN % (test code 0.30 % = 2923445050) LYMPH % (test code = 12.9 % 736-9) MONO % (test code = 11.2 % 5905-5) EOS % (test code = 0.7 % 713-8) BASO % (test code = 0.5 % 706-2) GRAN MAT x10^3(ANC) 4.40 10*3/uL 1.88-7.09 (test code = 1816069532) IMM GRAN x10^3 (test <0.03 0.00-0.06 code = 5078351585) LYMPH x10^3 (test code 0.76 10*3/uL 1.32-3.29 L = 731-0) MONO x10^3 (test code 0.66 10*3/uL 0.33-0.92 = 742-7) EOS x10^3 (test code = 0.04 10*3/uL 0.03-0.39 711-2) BASO x10^3 (test code 0.03 10*3/uL 0.01-0.07 = 704-7) Lab Interpretation Abnormal (test code = 68075-2) [facility] METABOLIC PANEL (NA, K, CL, CO2, GLUCOSE, BUN, CREATININE, CA)2021-05-21 10:17:29 Test Item Value Reference Range Interpretation Comments NA (test code = 132 mmol/L 135-145 L 7494356802) K (test code = 4.6 mmol/L 3.5-5.0 1999894749) CL (test code = 99 mmol/L 98-108 4081598823) CO2 TOTAL (test code = 27 mmol/L 23-31 7195725756) AGAP (test code = 2-16 3253262594) BUN (test code = 30 mg/dL 7-23 H 7487550018) GLUCOSE (test code = 129 mg/dL 70-110 H 7694089674) CREATININE (test code = 4.51 mg/dL 0.50-1.04 H 4100387706) CALCIUM (test code = 8.1 mg/dL 8.6-10.6 L 1301145537) eGFR (test code = mL/min/1.73m2 0846657850) BRANDI (test code = BRANDI) Association of [...] tests). Lab Interpretation Abnormal (test code = 70997-2) [facility] GLUCOSE (AUTOMATED)2021-05-21 02:24:31 Test Item Value Reference Range Interpretation Comments POCT GLU (test code = 2628592612) 123 mg/dL 70-110 H Lab Interpretation (test code = Abnormal 55623-5) [facility] GLUCOSE (AUTOMATED)2021-05-20 22:40:15 Test Item Value Reference Range Interpretation Comments POCT GLU (test code = 3114275289) 193 mg/dL 70-110 H Lab Interpretation (test code = Abnormal 08139-7) [facility] GLUCOSE (AUTOMATED)2021-05-20 17:24:39 Test Item Value Reference Range Interpretation Comments POCT GLU (test code = 3820102694) 129 mg/dL 70-110 H Lab Interpretation (test code = Abnormal 21291-6) [id number] 16:20:09 Test Item Value Reference Range Interpretation Comments NT-proBNP (test code 812865 pg/mL See_Comment H [Autom ated = 4643265695) message] The system which generated this result transmitted reference range : <=125. The reference range was not used to interpret this result as normal/abnormal . BRANDI (test code = BRANDI) Biotin has been reported to cause a negative bias, interpret results relative to patient's use of biotin. Lab Interpretation Abnormal (test code = 67575-2) [facility] 13:50:50 Test Item Value Reference Range Interpretation Comments POCT GLU (test code = 5403229751) 142 mg/dL 70-110 H Lab Interpretation (test code = Abnormal 20447-4) [facility] [id number] 11:29:26 Test Item Value Reference Range Interpretation Comments LDH (test code = 9853642043) 424 U/L 300-600 Slight hemolysis Lab Interpretation (test code Normal = 71268-8) [facility] METABOLIC PANEL (NA, K, CL, CO2, GLUCOSE, BUN, CREATININE, CA)2021-05-20 11:28:05 Test Item Value Reference Range Interpretation Comments NA (test code = 132 mmol/L 135-145 L 3019090942) K (test code = 4.6 mmol/L 3.5-5.0 9510944383) CL (test code = 97 mmol/L 98-108 L 2993709305) CO2 TOTAL (test code = 26 mmol/L 23-31 2330146619) AGAP (test code = 2-16 8885620641) BUN (test code = 44 mg/dL 7-23 H 9414754907) GLUCOSE (test code = 161 mg/dL 70-110 H 5386361863) CREATININE (test code = 6.29 mg/dL 0.50-1.04 H 5635844244) CALCIUM (test code = 8.0 mg/dL 8.6-10.6 L 9928267229) eGFR (test code = mL/min/1.73m2 2771781786) BRANDI (test code = BRANDI) Association of [...] tests). Lab Interpretation Abnormal (test code = 76589-0) [facility] [id number] 11:17:25 Test Item Value Reference Range Interpretation Comments PROTIME PATIENT (test See_Comment [Auto mated message] code = 5964-2) The system [employer] generated this result transmitted ref erence range: 12.0 - 1 4.7 Seconds. The re ference range was not u sed to interpret this result as normal/abnor mal. INR (test code = 6301-6) Nor mal INR <1.1; Warfarin Therap eutic range 2.0 to 3. 0 or 2.5 to 3.5, dep ending upon the indica tions. Lab Interpretation (test Normal code = 54638-3) [facility] GLUCOSE (AUTOMATED)2021-05-20 01:38:05 Test Item Value Reference Range Interpretation Comments POCT GLU (test code = 2155337926) 181 mg/dL 70-110 H Lab Interpretation (test code = Abnormal 41767-5) [facility] GLUCOSE (AUTOMATED)2021-05-19 23:12:33 Test Item Value Reference Range Interpretation Comments POCT GLU (test code = 1485130826) 129 mg/dL 70-110 H Lab Interpretation (test code = Abnormal 85865-3) [facility] GLUCOSE (AUTOMATED)2021-05-19 17:43:05 Test Item Value Reference Range Interpretation Comments POCT GLU (test code = 6686389982) 195 mg/dL 70-110 H Lab Interpretation (test code = Abnormal 34415-2) [facility] [id number] 16:56:37 Test Item Value Reference Range Interpretation Comments NT-proBNP (test code 703920 pg/mL See_Comment H [Autom ated = 9089306554) message] The system which generated this result transmitted reference range : <=125. The reference range was not used to interpret this result as normal/abnormal . BRANDI (test code = BRANDI) Biotin has been reported to cause a negative bias, interpret results relative to patient's use of biotin. Lab Interpretation Abnormal (test code = 73748-4) [facility] (NA, K, CL, CO2, GLUCOSE, BUN, CREATININE, CA)2021-05-19 15:16:19 Test Item Value Reference Range Interpretation Comments NA (test code = 132 mmol/L 135-145 L 9070162624) K (test code = 4.7 mmol/L 3.5-5.0 3453119251) CL (test code = 98 mmol/L 98-108 6127365630) CO2 TOTAL (test code = 24 mmol/L 23-31 8844777387) AGAP (test code = 2-16 8251413446) BUN (test code = 30 mg/dL 7-23 H 2414013748) GLUCOSE (test code = 101 mg/dL 70-110 6863012207) CREATININE (test code = 4.70 mg/dL 0.50-1.04 H 0787106010) CALCIUM (test code = 8.3 mg/dL 8.6-10.6 L 9091602039) eGFR (test code = mL/min/1.73m2 3293171037) BRANDI (test code = BRANDI) Association of [...] tests). Lab Interpretation Abnormal (test code = 26826-8) [facility]21-[facility]-19 14:16:27 Test Item Value Reference Range Interpretation Comments POCT GLU (test code = 9107172069) 112 mg/dL 70-110 H Lab Interpretation (test code = Abnormal 48337-3) [facility] WITH [id number] 13:09:08 Test Item Value Reference Range Interpretation Comments WBC (test code = See_Comment [Automated 6690-2) message] The sy stem which generated this result transmitted reference range : 4.30 - 11.10 10*3/?L. The reference range was not used to interpret this result as normal/abnormal . RBC (test code = See_Comment L [Automated 619-8) message] The sy stem which generated this [...] (test code = 51.2 fL 39.0-49.9 H 14080-8) RDW-CV (test code = 14.6 % 12.0-15.5 788-0) PLT (test code = See_Comment L [Automated 777-3) message] The sy stem which generated this result transmitted reference range : 166 - 358 10*3/ ?L. The reference r alba was not used to interpret this result as normal/abnormal . MPV (test code = 11.0 fL 9.5-12.9 05747-7) NRBC/100 WBC (test See_Comment [Automat ed code = 6120471427) message] The system which generated this result transmitted reference range : 0.0 - 10.0 /100 WBCs. The refer ence range was not u sed to interpret th is result as normal/abnormal . NRBC x10^3 (test code <0.01 See_Comment [Auto mated = 6171266967) message] The s ystem which generated this result transmitted reference range : 10*3/?L. The reference range was not used to interpret this result as normal/abnormal . GRAN MAT (NEUT) % 82.8 % (test code = 770-8) IMM GRAN % (test code 0.40 % = 0363563316) LYMPH % (test code = 7.8 % 736-9) MONO % (test code = 7.9 % 5905-5) EOS % (test code = 0.7 % 713-8) BASO % (test code = 0.4 % 706-2) GRAN MAT x10^3(ANC) 5.98 10*3/uL 1.88-7.09 (test code = 4156158223) IMM GRAN x10^3 (test 0.03 10*3/uL 0.00-0.06 code = 6069986853) LYMPH x10^3 (test code 0.56 10*3/uL 1.32-3.29 L = 731-0) MONO x10^3 (test code 0.57 10*3/uL 0.33-0.92 = 742-7) EOS x10^3 (test code = 0.05 10*3/uL 0.03-0.39 711-2) BASO x10^3 (test code 0.03 10*3/uL 0.01-0.07 = 704-7) Lab Interpretation Abnormal (test code = 81870-0) [facility] B Surface Antibody (HBsAb)2021-05-19 09:35:37 Test Item Value Reference Range Interpretation Comments HBsAB (test code = Positive 6672181606) HBsAb mIU/mL Semi-Quantitative (test code = 2083694507) BRANDI (test code = Interpretation: BRANDI) ?Hepatitis B Surface Antibody ? Negative - Patient is considered to be not immune to infection with HBV. ? ? Positive - Anti-HBs detected at greater than or equal to 12 mIU/mL. ?Patient is considered to be immune to infection with HBV. ? [facility] B Surface Antigen (HBsAg)2021-05-19 09:17:53 Test Item Value Reference Range Interpretation Comments HBsAg Semi-Quantitative (test code = Negative Negative 5195-3) [facility] GLUCOSE (AUTOMATED)2021-05-19 03:13:02 Test Item Value Reference Range Interpretation Comments POCT GLU (test code = 4628232059) 110 mg/dL 70-110 Lab Interpretation (test code = Normal 55305-4) [facility] GLUCOSE (AUTOMATED)2021-05-18 23:00:40 Test Item Value Reference Range Interpretation Comments POCT GLU (test code = 6897052184) 177 mg/dL 70-110 H Lab Interpretation (test code = Abnormal 96778-0) [facility] GLUCOSE (AUTOMATED)2021-05-18 17:50:50 Test Item Value Reference Range Interpretation Comments POCT GLU (test code = 6164861135) 179 mg/dL 70-110 H Lab Interpretation (test code = Abnormal 78429-6) [facility] GLUCOSE (AUTOMATED)2021-05-18 17:26:29 Test Item Value Reference Range Interpretation Comments POCT GLU (test code = 5329010696) 171 mg/dL 70-110 H Lab Interpretation (test code = Abnormal 59658-0) [facility] METABOLIC PANEL (NA, K, CL, CO2, GLUCOSE, BUN, CREATININE, CA)2021-05-18 15:43:01 Test Item Value Reference Range Interpretation Comments NA (test code = 128 mmol/L 135-145 L 8121036883) K (test code = 5.5 mmol/L 3.5-5.0 H 4026789758) CL (test code = 94 mmol/L 98-108 L 4423664161) CO2 TOTAL (test code = 24 mmol/L 23-31 3729271408) AGAP (test code = 2-16 5297524379) BUN (test code = 56 mg/dL 7-23 H 4614768683) GLUCOSE (test code = 130 mg/dL 70-110 H 2784175205) CREATININE (test code = 7.52 mg/dL 0.50-1.04 H 6539080084) CALCIUM (test code = 7.8 mg/dL 8.6-10.6 L 5410022066) eGFR (test code = mL/min/1.73m2 2467376328) BRANDI (test code = BRANDI) Association of [...] tests). Lab Interpretation Abnormal (test code = 81976-2) [facility] GLUCOSE (AUTOMATED)2021-05-18 13:33:12 Test Item Value Reference Range Interpretation Comments POCT GLU (test code = 8320506955) 129 mg/dL 70-110 H Lab Interpretation (test code = Abnormal 81058-6) [facility] GLUCOSE (AUTOMATED)2021-05-17 22:57:15 Test Item Value Reference Range Interpretation Comments POCT GLU (test code = 5932854651) 215 mg/dL 70-110 H Lab Interpretation (test code = Abnormal 89798-2) [facility] ([facility]2021-05-17 18:02:09 Test Item Value Reference Range Interpretation Comments LVOT diameter (test code 2.00 cm = 6435288061) MV Peak E [place] (test code 134.0 cm/s = 0055386682) MV Peak A [place] (test code 54.2 cm/s = 0430971045) E/A ratio (test code = ratio 0764795989) E wave decelartion time 0.22 s (test code = 8297259738) LA size (test code = 5.4 cm 8194472607) MV stenosis pressure 1/2 65.0 ms time (test code = 4081889249) MV dec slope (test code 604.00 cm/s2 = 0089496739) Ao root annulus (test 2.7 cm code = 4761972275) Ao root diam (test code 2.70 cm = 8913411542) Aortic root (test code = 2.7 cm 1033311262) LVIDD (test code = 5.10 cm 1291608096) IVS (test code = 1.06 cm 7446017619) Interventricular Septum 1.06 cm Diastolic Thickness by 2D (test code = 6828557) LVPWD (test code = 1.00 cm 3178587497) PW (test code = 1.00 cm 0.6-1.0 1546381674) LVIDS (test code = 3.70 cm 4288213304) FS (test code = 27 % 7899377994) EF(Teich) (test code = 52.60 % 3847989015) EF - 2D (test code = 52.60 % 45698115) MR max PG (test code = 123.90 mm[Hg] 7508117965) MR max marietta (test code = 556.50 cm/s 4399727671) Mr max m[place] (test code = 556.5 m/s 8878917768) LAV(MOD-sp4) (test code 46.70 mL = 5283484051) LA Volume Index (BP) 29.2 mL/m2 (test code = 2487667104) LA volume (BP) (test 51.8 mL code = 7964101208) LAV(MOD-sp2) (test code 52.40 mL = 5967618226) Aortic valve mean 105.0 cm/s velocity (test code = 7425767229) Ao peak m[place] (test code = 160.0 cm/s 4119198494) Ao VTI (test code = 30.0 cm 6003718961) Ao max PG (test code = 10.20 mm[Hg] 1283665635) AV peak gradient (test mmHg code = 4081468873) AV mean gradient (test mmHg code = 0406740714) LVOT stroke volume (test 63.60 cm3 code = 9619709971) LVOT peak [place] (test code 108.3 cm/s = 3126029597) LVOT mn grad (test code mmHg = 6894806526) AV LVOT peak gradient mmHg (test code = 6893337076) LVOT peak VTI (test code 20.2 cm = 8411743696) AV area by cont VTI 2.1 cm2 (test code = 1215323011) AV area peak m[place] (test 2.1 cm2 code = 3167526806) LV V1 mean (test code = 66.80 cm/s 8354270511) AV valve area (test code 2.12 cm2 = 4604169845) TR Peak [place] (test code = 342.9 cm/s 0635071388) Triscuspid Valve mmHg Regurgitation Peak Gradient (test code = 4032930055) PV REGURGITATION PEAK mmHg GRADIENT (test code = 2902625673) PI dec slope (test code 438.00 cm/s2 = 8453344017) Pulmonic Regurgitant End 105.3 cm/s Max Velocity (test code = 9533947284) Inferior Vena Cava 2.33 cm Diameter (test code = 5347657142) MV Prop V (test code = 37.50 cm/s 0851061547) Radiology Study observation (narrative) (test code = 09918-2) ADD (test code = ADD) Addendum by Brenda Fuentes MD on 05/17/2021 3:16 PM HEELER ?Left?Ventricle: Low normal systolic function with a [...] (73.9 kg) 1.81 sq meters 165/73 71 [facility] GLUCOSE (AUTOMATED)2021-05-17 17:54:17 Test Item Value Reference Range Interpretation Comments POCT GLU (test code = 8611529961) 134 mg/dL 70-110 H Lab Interpretation (test code = Abnormal 94803-9) [facility] GLUCOSE (AUTOMATED)2021-05-17 14:18:37 Test Item Value Reference Range Interpretation Comments POCT GLU (test code = 1319591342) 119 mg/dL 70-110 H Lab Interpretation (test code = Abnormal 62741-9) [facility] [id number] 11:21:13 Test Item Value Reference Range Interpretation Comments NT-proBNP (test code 575150 pg/mL See_Comment H [Autom ated = 1361371941) message] The system which generated this result transmitted reference range : <=125. The reference range was not used to interpret this result as normal/abnormal . BRANDI (test code = BRANDI) Biotin has been reported to cause a negative bias, interpret results relative to patient's use of biotin. Lab Interpretation Abnormal (test code = 02761-9) [facility] WITHOUT [id number] 11:09:22 Test Item Value Reference Range Interpretation Comments WBC (test code = 6690-2) See_Comment [A utomated message] The system [employer] generated this result transmit levi reference range : 4.30 - 11.10 10*3/?L. The reference range was not used to interpret this result as normal/abnormal . RBC (test code = 789-8) See_Comment L [Au tomated message] The system [employer] generated this result transmit levi reference range [...] See_Comment L [Au tomated message] The system [facility] generated this result transmit elvi reference range : 166 - 358 10*3/?L. The reference range was not used to interpret this result as normal/abnormal . MPV (test code = 11.1 fL 9.5-12.9 87632-1) RDW-CV (test code = 14.5 % 12.0-15.5 788-0) RDW-SD (test code = 50.8 fL 39.0-49.9 H 68700-8) NRBC x10^3 (test code = <0.01 See_Comment [Au tomated message] 2106827114) The system [facility] generated this result transmit levi reference range : 10*3/?L. The reference range was not used to interpret this result as normal/abnormal . NRBC/100 WBC (test code See_Comment [Au tomated message] = 5896967596) The system [facility] generated this result transmit levi reference range : 0.0 - 10.0 /100 WBC s. The reference r alba was not used to interpret this result as normal/abnormal . IPF % (test code = 7322932065) Lab Interpretation (test Abnormal code = 50737-2) [facility] Test Item Value Reference Range Interpretation Comments MAGNESIUM (test code = 8634605929) 2.1 mg/dL 1.7-2.4 Lab Interpretation (test code = Normal 90088-7) [facility] METABOLIC PANEL (NA, K, CL, CO2, GLUCOSE, BUN, CREATININE, CA)2021-05-17 10:56:22 Test Item Value Reference Range Interpretation Comments NA (test code = 130 mmol/L 135-145 L 6539224871) K (test code = 4.6 mmol/L 3.5-5.0 5243705614) CL (test code = 96 mmol/L 98-108 L 7664339836) CO2 TOTAL (test code = 26 mmol/L 23-31 0120068912) AGAP (test code = 2-16 5099864637) BUN (test code = 42 mg/dL 7-23 H 6254107407) GLUCOSE (test code = 148 mg/dL 70-110 H 4611547218) CREATININE (test code = 5.84 mg/dL 0.50-1.04 H 8900526754) CALCIUM (test code = 7.9 mg/dL 8.6-10.6 L 8219410610) eGFR (test code = mL/min/1.73m2 7345680676) BRANDI (test code = BRANDI) Association of [...] tests). Lab Interpretation Abnormal (test code = 02911-9) [facility] 10:56:02 Test Item Value Reference Range Interpretation Comments PHOSPHORUS (test code = 2088287119) 5.8 mg/dL 2.5-5.0 H Lab Interpretation (test code = Abnormal 25148-3) [facility] GLUCOSE (AUTOMATED)2021-05-16 22:43:07 Test Item Value Reference Range Interpretation Comments POCT GLU (test code = 3149006948) 231 mg/dL 70-110 H Lab Interpretation (test code = Abnormal 48977-3) [facility] GLUCOSE (AUTOMATED)2021-05-16 17:43:53 Test Item Value Reference Range Interpretation Comments POCT GLU (test code = 5235518240) 154 mg/dL 70-110 H Lab Interpretation (test code = Abnormal 48814-8) [facility] GLUCOSE (AUTOMATED)2021-05-16 13:42:36 Test Item Value Reference Range Interpretation Comments POCT GLU (test code = 3498304667) 121 mg/dL 70-110 H Lab Interpretation (test code = Abnormal 98684-7) [facility] WITHOUT [id number] 09:48:31 Test Item Value Reference Range Interpretation Comments WBC (test code = 6690-2) See_Comment [A utomated message] The system [employer] generated this result transmit levi reference range : 4.30 - 11.10 10*3/?L. The reference range was not used to interpret this result as normal/abnormal . RBC (test code = 789-8) See_Comment L [Au tomated message] The system [employer] generated this result transmit levi reference range [...] See_Comment L [Au tomated message] The system [facility] generated this result transmit levi reference range : 166 - 358 10*3/?L. The reference range was not used to interpret this result as normal/abnormal . MPV (test code = 10.9 fL 9.5-12.9 74640-9) RDW-CV (test code = 15.0 % 12.0-15.5 788-0) RDW-SD (test code = 52.6 fL 39.0-49.9 H 99771-2) NRBC x10^3 (test code = <0.01 See_Comment [Au tomated message] 6328099061) The system [facility] generated this result transmit levi reference range : 10*3/?L. The reference range was not used to interpret this result as normal/abnormal . NRBC/100 WBC (test code See_Comment [Au tomated message] = 0086400139) The system [facility] generated this result transmit levi reference range : 0.0 - 10.0 /100 WBC s. The reference r alba was not used to interpret this result as normal/abnormal . IPF % (test code = 8312812361) Lab Interpretation (test Abnormal code = 51888-7) [facility] Hospital[facility]id [facility] (Total Cholesterol, Triglycerides, HDL)2021-05-16 09:36:18 Test Item Value Reference Range Interpretation Comments CHOL (test code = 157 mg/dL 120-200 0136560376) HDL (test code = 26 mg/dL >50 L 9036399863) HDLC RATIO (test code = See_Comment H [Au tomated message] 2969946584) The system [facility] [employer] generated this result transmit levi reference range : <=4.5. The refe rence range was not u sed to interpret th is result as normal/abnormal . TRIG (test code = 146 mg/dL 30-170 5505372797) LDL CHOL (test code = 102 mg/dL See_Comment [Auto mated message] 48663-0) The system [employer] generated this result transmit levi reference range : <=160. The refe rence range was not u sed to interpret th is result as normal/abnormal . VLDL (test code = 29 mg/dL 5-60 0187852252) Lab Interpretation (test Abnormal code = 47416-0) [facility] HospitalGlycosylated Hemoglobin (A1C)2021-05-16 09:22:50 Test Item Value Reference Range Interpretation Comments HGB A1C (test code = 6.2 % 4.0-5.7 H 4548-4) BRANDI (test code = BRANDI) Reference RangesNormal: <5.7%Prediabetes: 5.7 - 6.4%Diabetes: > 6.5% Lab Interpretation (test Abnormal code = 00603-7) [facility] HospitalTroponin [id number] 09:19:18 Test Item Value Reference Interpretation Comments Range TROPONIN I (test 0.028 ng/mL See_Comment [Automated code = 9372959889) message] The system which generated this result [...] biotin. Lab Interpretation Normal (test code = 73837-8) [facility] (NA, K, CL, CO2, GLUCOSE, BUN, CREATININE, CA)2021-05-16 09:08:35 Test Item Value Reference Range Interpretation Comments NA (test code = 134 mmol/L 135-145 L 5082536971) K (test code = 4.3 mmol/L 3.5-5.0 4602920411) CL (test code = 98 mmol/L 98-108 0125658592) CO2 TOTAL (test code = 27 mmol/L 23-31 7456055515) AGAP (test code = 2-16 7915010988) BUN (test code = 28 mg/dL 7-23 H 5170825733) GLUCOSE (test code = 114 mg/dL 70-110 H 1049558676) CREATININE (test code = 4.79 mg/dL 0.50-1.04 H 2495279242) CALCIUM (test code = 8.2 mg/dL 8.6-10.6 L 4798615334) eGFR (test code = mL/min/1.73m2 9777330378) BRANDI (test code = BRANDI) Association of [...] tests). Lab Interpretation Abnormal (test code = 47569-1) [facility] HospitalMagnesium [id number] 09:08:35 Test Item Value Reference Range Interpretation Comments MAGNESIUM (test code = 1168269874) 2.2 mg/dL 1.7-2.4 Lab Interpretation (test code = Normal 31539-9) [facility] HospitalTroponin [id number] 03:08:26 Test Item Value Reference Interpretation Comments Range TROPONIN I (test 0.019 ng/mL See_Comment [Automated code = 7719269733) message] The system which generated this result [...] biotin. Lab Interpretation Normal (test code = 23240-9) [facility] HospitalPhosphorus [id number] 02:56:02 Test Item Value Reference Range Interpretation Comments PHOSPHORUS (test code = 7753515076) 4.5 mg/dL 2.5-5.0 Lab Interpretation (test code = Normal 27413-3) [facility])2021-05-16 02:28:15 Test Item Value Reference Range Interpretation Comments POCT GLU (test code = 1630421238) 155 mg/dL 70-110 H Lab Interpretation (test code = Abnormal 54844-3) [facility] HospitalThyroid Stimulating Hormone (TSH)2021-05-16 01:56:53 Test Item Value Reference Range Interpretation Comments TSH (test code = See_Comment [Automated message] 9415719900) The system [employer] generated this result transmitted ref erence range: 0.45 - 4 .70 mIU/L. The refe rence range was not u sed to interpret this result as normal/abnor mal. Lab Interpretation (test Normal code = 80327-2) [facility] HospitalGlycosylated Hemoglobin (A1C)2021-05-16 01:17:48 Test Item Value Reference Range Interpretation Comments HGB A1C (test code = 6.3 % 4.0-5.7 H 4548-4) BRANDI (test code = BRANDI) Reference RangesNormal: <5.7%Prediabetes: 5.7 - 6.4%Diabetes: > 6.5% Lab Interpretation (test Abnormal code = 06311-8) [facility]N-[facility]MINAL [id number] 20:42:55 Test Item Value Reference Range Interpretation Comments NT-proBNP (test code 756898 pg/mL See_Comment H [Autom ated = 5884569592) message] The system which generated this result transmitted reference range : <=125. The reference range was not used to interpret this result as normal/abnormal . BRANDI (test code = BRANDI) Biotin has been reported to cause a negative bias, interpret results relative to patient's use of biotin. Lab Interpretation Abnormal (test code = 02634-8) [facility] HospitalTROPONIN [id number] 20:28:40 Test Item Value Reference Interpretation Comments Range TROPONIN I (test 0.012 ng/mL See_Comment [Automated code = 2498319695) message] The system which generated this result [...] biotin. Lab Interpretation Normal (test code = 95967-1) [facility] HospitalD-[id number] 20:27:34 Test Item Value Reference Interpretation Comments Range D-DIMER (test code = See_Comment H [Autom ated 7679133389) message] The system which generated this result [...] diagnosis. Lab Interpretation Abnormal (test code = 54365-3) [facility] HospitalMAGNESIUM2022-02-11 20:17:56 Test Item Value Reference Range Interpretation Comments MAGNESIUM (test code = 4928908136) 1.9 mg/dL 1.7-2.4 Lab Interpretation (test code = Normal 80091-6) [facility] HospitalCOMP. METABOLIC PANEL (33767)2021-05-15 20:17:36 Test Item Value Reference Range Interpretation Comments NA (test code = 136 mmol/L 135-145 7305393058) K (test code = 4.2 mmol/L 3.5-5.0 4483574621) CL (test code = 99 mmol/L 98-108 2822548013) CO2 TOTAL (test code = 26 mmol/L 23-31 1449031754) AGAP (test code = 2-16 8064862372) BUN (test code = 24 mg/dL 7-23 H 6880949440) GLUCOSE (test code = 112 mg/dL 70-110 H 8144573489) CREATININE (test code = 3.82 mg/dL 0.50-1.04 H 5756641250) TOTAL BILI (test code = 1.0 mg/dL 0.1-1.9 2886023604) CALCIUM (test code = 8.5 mg/dL 8.6-10.6 L 3433474797) T PROTEIN (test code = 8.6 g/dL 6.3-8.2 H 7576985963) ALBUMIN (test code = 4.2 g/dL 3.5-5.0 8106852891) ALK PHOS (test code = 176 U/L 34-122 H 6546055046) ALTv (test code = 13 U/L 5-35 1742-6) AST(SGOT) (test code = 26 U/L 13-40 3404620434) eGFR (test code = mL/min/1.73m2 9066830209) BRANDI (test code = BRANDI) Association of [...] tests). Lab Interpretation Abnormal (test code = 24450-5) [facility] HospitalLIPASE2022-02-11 20:17:15 Test Item Value Reference Range Interpretation Comments LIPASE (test code = 8930269621) 125 U/L 0-220 Lab Interpretation (test code = Normal 08165-4) [facility] HospitalPROTHROMBIN TIME / [id number] 20:02:29 Test Item Value Reference Range Interpretation [...] tions. Lab Interpretation (test Normal code = 69835-2) [facility] HospitalCB WITH [id number] 19:52:47 Test Item Value Reference Range Interpretation [...] (test code = 52.6 fL 39.0-49.9 H 35769-1) RDW-CV (test code = 15.0 % 12.0-15.5 788-0) PLT (test code = See_Comment L [Automated 777-3) message] The sy stem which generated this result transmitted reference range : 166 - 358 10*3/ ?L. The reference r alba was not used to interpret this result as normal/abnormal . MPV (test code = 10.9 fL 9.5-12.9 11085-5) NRBC/100 WBC (test See_Comment [Automat ed code = 6906741681) message] The system which generated this result transmitted reference range : 0.0 - 10.0 /100 WBCs. The refer ence range was not u sed to interpret th is result as normal/abnormal . NRBC x10^3 (test code <0.01 See_Comment [Auto mated = [id number]) message] The s ystem which generated this result transmitted reference range : 10*3/?L. The reference range was not used to interpret this result as normal/abnormal . GRAN MAT (NEUT) % 74.8 % (test code = 770-8) IMM GRAN % (test code 0.60 % = [id number]) LYMPH % (test code = 12.4 % 736-9) MONO % (test code = 8.7 % 5905-5) EOS % (test code = 2.6 % 713-8) BASO % (test code = 0.9 % 706-2) GRAN MAT x10^3(ANC) 4.06 10*3/uL 1.88-7.09 (test code = [id number]) IMM GRAN x10^3 (test 0.03 10*3/uL 0.00-0.06 code = [id number]) LYMPH x10^3 (test code 0.67 10*3/uL 1.32-3.29 L = 731-0) MONO x10^3 (test code 0.47 10*3/uL 0.33-0.92 = 742-7) EOS x10^3 (test code = 0.14 10*3/uL 0.03-0.39 711-2) BASO x10^3 (test code 0.05 10*3/uL 0.01-0.07 = 704-7) Lab Interpretation Abnormal (test code = 87284-5) [facility] [Mass/volume] in Serum or [id number] 17:30:00 Test Item Value Reference Range Interpretation Comments Troponin I.cardiac 0.35 See_Comment [Automat ed message] The [Mass/volume] in Serum syste m which generated or Plasma (test code = this result transmitted Troponin I.cardiac reference range: <=0.045. [Mass/volume] in Serum The r eference range was or Plasma) not used to int erpret this result as normal/abnormal . [facility]ann[facility] lymphocyte [id number] 11:37:00 Test Item Value Reference Range Interpretation Comments Absolute lymphocyte count (test code = 0.7 0.7-4.9 Absolute lymphocyte count) [facility] HermannBasophil %2019-02-18 11:37:00 Test Item Value Reference Range Interpretation Comments Basophil % (test code = 2.4 See_Comment [Au tomated message] The Basophil %) system which ge nerated this result tra nsmitted reference range : <=1.3. The reference r alba was not used to int erpret this result as normal/abnormal . [facility] [id number] 11:37:00 Test Item Value Reference Range Interpretation Comments Blood anisocytosis detection (test code 2+ = Blood anisocytosis detection) [facility] MalloryannBlood erythrocytes count (number/volume)2019-02-18 11:37:00 Test Item Value Reference Range Interpretation Comments Blood erythrocytes count 3.34 3.86-4.86 (number/volume) (test code = Blood erythrocytes count (number/volume)) [facility] MalloryannBlood hematocrit (volume fraction)2019-02-18 11:37:00 Test Item Value Reference Range Interpretation Comments Blood hematocrit (volume fraction) 31.8 36.0-45.0 (test code = Blood hematocrit (volume fraction)) [facility] interpretation [id number] 11:37:00 Test Item Value Reference Range Interpretation Comments Blood morphology interpretation Noted narrative (test code = Blood morphology interpretation narrative) [facility] platelet mean [id number] 11:37:00 Test Item Value Reference Range Interpretation Comments Blood platelet mean volume (test code = 9.8 7.6-11.3 Blood platelet mean volume) [facility] poikilocytosis detection by light apiktirvnm3139-23-67 11:37:00 Test Item Value Reference Range Interpretation Comments Blood poikilocytosis detection by light 1+ microscopy (test code = Blood poikilocytosis detection by light microscopy) [facility]annCalcium [Mass/volume] in Serum or Tclfpj7504-76-88 11:37:00 Test Item Value Reference Range Interpretation [...] [Moles/volume] in Serum or Plasma) [facility]Chem[facility] vquabqqvy2497-22-23 11:37:00 Test Item Value Reference Range Interpretation Comments Chemistry procedure (test code = 95.3 80-100 Chemistry procedure) [facility]annChloride [Moles/volume] in Serum or [id number] 11:37:00 Test Item Value Reference Range Interpretation Comments Chloride [Moles/volume] in Serum or 98 98-107 Plasma (test code = Chloride [Moles/volume] in Serum or Plasma) [facility]annCreatinine [Mass/volume] in Serum or [id number] 11:37:00 Test Item Value Reference Range Interpretation Comments Creatinine [Mass/volume] in Serum or 7.35 0.55-1.3 Plasma (test code = Creatinine [Mass/volume] in Serum or Plasma) [facility]Glucose [Mass/volume] in Serum or [id number] 11:37:00 Test Item Value Reference Range Interpretation Comments Glucose [Mass/volume] in Serum or 110 74-106 Plasma (test code = Glucose [Mass/volume] in Serum or Plasma) [facility]annMagnesium [Mass/volume] in Serum or Rqcrrn4117-83-45 11:37:00 Test Item Value Reference Range Interpretation Comments Magnesium [Mass/volume] in Serum or 2.4 1.8-2.4 Plasma (test code = Magnesium [Mass/volume] in Serum or Plasma) [facility]annPhosphate [Mass/volume] in Serum or Abeedl7476-98-65 11:37:00 Test Item Value Reference Range Interpretation Comments Phosphate [Mass/volume] in Serum or 4.7 2.5-4.9 Plasma (test code = Phosphate [Mass/volume] in Serum or Plasma) [facility]Potassium [Moles/volume] in Serum or [id number] 11:37:00 Test Item Value Reference Range Interpretation [...] [facility]annUrea nitrogen [Mass/volume] in Serum or Jhoivw5773-87-05 11:37:00 Test Item Value Reference Range Interpretation Comments Urea nitrogen [Mass/volume] in Serum or 74 7-18 Plasma (test code = Urea nitrogen [Mass/volume] in Serum or Plasma) [facility]annUrine dipstick testing at quldk-fw-diuu0617-11-17 11:37:00 Test Item Value Reference Range Interpretation Comments Urine dipstick testing at wmpom-rr-qdwm 2.6 4.3-10.9 (test code = Urine dipstick testing at kepte-uu-etve) [facility]annAlanine aminotransferase [Enzymatic activity/volume] in Serum or Plasma by With P-5'-2019-02-18 00:35:00 Test Item Value Reference Range Interpretation Comments Alanine aminotransferase [Enzymatic 64 12-78 activity/volume] in Serum or Plasma by With P-5'- (test code = Alanine aminotransferase [Enzymatic activity/volume] in Serum or Plasma by With P-5'-) [facility]annAlbumin [Mass/volume] in Serum or Plasma by Bromocresol purple (BCP) dye binding [id number] 00:35:00 Test Item Value Reference Range Interpretation Comments Albumin [Mass/volume] in Serum or 3.6 3.4-5.0 Plasma by Bromocresol purple (BCP) dye binding meth (test code = Albumin [Mass/volume] in Serum or Plasma by Bromocresol purple (BCP) dye binding meth) [facility]annAlkaline phosphatase [Enzymatic activity/volume] in Serum or Rfssgx7272-25-13 00:35:00 Test Item Value Reference Range Interpretation Comments Alkaline phosphatase [Enzymatic 236 45-117 activity/volume] in Serum or Plasma (test code = Alkaline phosphatase [Enzymatic activity/volume] in Serum or Plasma) [facility]annAspartate aminotransferase [Enzymatic activity/volume] in Serum or Plasma by With [id number] 00:35:00 Test Item Value Reference Range Interpretation Comments Aspartate aminotransferase [Enzymatic 48 15-37 activity/volume] in Serum or Plasma by With P-5 (test code = Aspartate aminotransferase [Enzymatic activity/volume] in Serum or Plasma by With P-5) [facility]annBilirubin.direct [Mass/volume] in Serum or Kjgcpx4099-18-76 00:35:00 Test Item Value Reference Range Interpretation Comments Bilirubin.direct 0.2 See_Comment [Automated message] The [Mass/volume] in Serum syste m which generated or Plasma (test code = this result transmitted Bilirubin.direct reference r alba: <=0.2. [Mass/volume] in Serum The r eference range was or Plasma) not used to int erpret this result as emilee l/abnormal. [facility]annBilirubin.total [Mass/volume] in Serum or Duaocn3399-18-14 00:35:00 Test Item Value Reference Range Interpretation Comments Bilirubin.total [Mass/volume] in Serum 0.6 0.2-1.0 or Plasma (test code = Bilirubin.total [Mass/volume] in Serum or Plasma) [facility]annINR in Blood by Coagulation [id number] 00:35:00 Test Item Value Reference Range Interpretation Comments INR in Blood by Coagulation assay 1.15 1 (test code = INR in Blood by Coagulation assay) [facility]annNatriuretic peptide.B prohormone N-Terminal [Mass/volume] in Serum or Aogffo1539-13-45 00:35:00 Test Item Value Reference Range Interpretation Comments Natriuretic peptide.B prohormone > 201222 N-Terminal [Mass/volume] in Serum or Plasma (test code = Natriuretic peptide.B prohormone N-Terminal [Mass/volume] in Serum or Plasma) [facility]annProtein [Mass/volume] in Serum or Ippimb1526-97-28 00:35:00 Test Item Value Reference Range Interpretation Comments Protein [Mass/volume] in Serum or 8.0 6.4-8.2 Plasma (test code = Protein [Mass/volume] in Serum or Plasma) [facility] HermannTroponin I.cardiac [Mass/volume] in Serum or [id number] 00:35:00 Test Item Value Reference Range Interpretation Comments Troponin I.cardiac 0.32 See_Comment [Automat ed message] The [Mass/volume] in Serum syste m which generated or Plasma (test code = this result transmitted Troponin I.cardiac reference range: <=0.045. [Mass/volume] in Serum The r eference range was or Plasma) not used to int erpret this result as normal/abnormal . [facility] HermannSerum or plasma sodium measurement (moles/volume)2019-01-26 04:05:00 Test Item Value Reference Range Interpretation Comments Serum or plasma sodium measurement 136 136-145 (moles/volume) (test code = Serum or plasma sodium measurement (moles/volume)) [facility] HermannUrea nitrogen [Mass/volume] in Serum or Sryurf5465-84-28 04:05:00 Test Item Value Reference Range Interpretation Comments Urea nitrogen [Mass/volume] in Serum or 52 7-18 Plasma (test code = Urea nitrogen [Mass/volume] in Serum or Plasma) [facility] HermannUrine dipstick testing at boajo-tl-slup5333-10-25 04:05:00 Test Item Value Reference Range Interpretation Comments Urine dipstick testing at euade-es-kfph 3.4 4.3-10.9 (test code = Urine dipstick testing at kpnnc-rf-zzgk) [facility] HermannAbsolute lymphocyte [id number] 04:05:00 Test Item Value Reference Range Interpretation Comments Absolute lymphocyte count (test code = 0.6 0.7-4.9 Absolute lymphocyte count) [facility] HermannBasophil %2019-01-26 04:05:00 Test Item Value Reference Range Interpretation Comments Basophil % (test code = 1.5 See_Comment [Au tomated message] The Basophil %) system which ge nerated this result tra nsmitted reference range : <=1.3. The reference r alba was not used to int erpret this result as normal/abnormal . [facility]annBlood erythrocytes count (number/volume)2019-01-26 04:05:00 Test Item Value Reference Range Interpretation Comments Blood erythrocytes count 3.64 3.86-4.86 (number/volume) (test code = Blood erythrocytes count (number/volume)) [facility]annBlood hematocrit (volume fraction)2019-01-26 04:05:00 Test Item Value Reference Range Interpretation Comments Blood hematocrit (volume fraction) 35.7 36.0-45.0 (test code = Blood hematocrit (volume fraction)) [facility]annBlood morphology interpretation [id number] 04:05:00 Test Item Value Reference Range Interpretation Comments Blood morphology interpretation Not seen narrative (test code = Blood morphology interpretation narrative) [facility]annBlood platelet mean [id number] 04:05:00 Test Item Value Reference Range Interpretation Comments Blood platelet mean volume (test code = 9.2 7.6-11.3 Blood platelet mean volume) [facility]annCalcium [Mass/volume] in Serum or Gempui6384-54-22 04:05:00 Test Item Value Reference Range Interpretation [...] [Moles/volume] in Serum or Plasma) [facility]Chem[facility] [id number] 04:05:00 Test Item Value Reference Range Interpretation Comments Chemistry procedure (test code = 98.1 80-100 Chemistry procedure) [facility]annChloride [Moles/volume] in Serum or [id number] 04:05:00 Test Item Value Reference Range Interpretation Comments Chloride [Moles/volume] in Serum or 98 98-107 Plasma (test code = Chloride [Moles/volume] in Serum or Plasma) [facility]annCreatinine [Mass/volume] in Serum or [id number] 04:05:00 Test Item Value Reference Range Interpretation Comments Creatinine [Mass/volume] in Serum or 6.36 0.55-1.3 Plasma (test code = Creatinine [Mass/volume] in Serum or Plasma) [facility] [[facility]] in Serum or Znsewi7520-06-59 04:05:00 Test Item Value Reference Range Interpretation Comments Glucose [Mass/volume] in Serum or 251 74-106 Plasma (test code = Glucose [Mass/volume] in Serum or Plasma) [facility]Pot[facility] [Moles/volume] in Serum or [id number] 04:05:00 Test Item Value Reference Range Interpretation Comments Potassium [Moles/volume] in Serum or 4.7 3.5-5.1 Plasma (test code = Potassium [Moles/volume] in Serum or Plasma) [facility] w [id number] 01:55:00 Test Item Value Reference Range Interpretation Comments Bacterial culture w ID NORMAL UPPER (test code = Bacterial RESPIRATORY HARI culture w ID) GROWN. [facility] [id number] 16:07:00 Test Item Value Reference Range Interpretation Comments Bedside Glucose (test code = Bedside 175 65-120 Glucose) [facility] Okjhwtd6069-45-47 05:35:00 Test Item Value Reference Range Interpretation Comments Blood Morphology Blood Morphology Comment (test code = Comment Blood Morphology Comment) [facility]2019-07-10 05:35:00 Test Item Value Reference Range Interpretation Comments Total Bilirubin (test code = Total 0.5 0.2-1.0 Bilirubin) [facility] Yghgppp7242-33-57 05:35:00 Test Item Value Reference Range Interpretation Comments Sodium Level (test code = Sodium Level) 137 136-145 [facility] Iqsibat9121-11-82 05:35:00 Test Item Value Reference Range Interpretation Comments Serum Total Protein (test code = Serum 7.5 6.4-8.2 Total Protein) [facility] [id number] 05:35:00 Test Item Value Reference Range Interpretation Comments Potassium Level (test code = Potassium 4.8 3.5-5.1 Level) [facility] Ssrbjhn7370-89-17 05:35:00 Test Item Value Reference Range Interpretation Comments Glucose Level (test code = Glucose 90 74-106 Level) [facility] Fpexkhd6504-04-25 05:35:00 Test Item Value Reference Range Interpretation Comments Globulin (test code = Globulin) 4.3 2.3-3.5 [facility] [id number] 05:35:00 Test Item Value Reference Range Interpretation Comments Estimat Glomerular 7 See_Comment [Automat ed message] The Filtration Rate (test system which generated code = Estimat this result t ransmitted Glomerular Filtration refere nce range: >=90. Rate) The reference r alba was not used to int erpret this result as normal/abnormal . [facility]2019-07-10 05:35:00 Test Item Value Reference Range Interpretation Comments Creatinine (test code = Creatinine) 6.02 0.55-1.3 [facility]2019-07-10 05:35:00 Test Item Value Reference Range Interpretation Comments Chloride Level (test code = Chloride 102 98-107 Level) [facility]2019-07-10 05:35:00 Test Item Value Reference Range Interpretation Comments Carbon Dioxide Level (test code = 25 21-32 Carbon Dioxide Level) [facility]2019-07-10 05:35:00 Test Item Value Reference Range Interpretation Comments Calcium Level (test code = Calcium 8.1 8.5-10.1 Level) [facility]2019-07-10 05:35:00 Test Item Value Reference Range Interpretation Comments Blood Urea Nitrogen (test code = Blood 43 7-18 Urea Nitrogen) [facility]2019-07-10 05:35:00 Test Item Value Reference Range Interpretation Comments Aspartate Amino Transf (AST/SGOT) (test 36 15-37 code = Aspartate Amino Transf (AST/SGOT)) [facility]2019-07-10 05:35:00 Test Item Value Reference Range Interpretation Comments Alkaline Phosphatase (test code = 252 45-117 Alkaline Phosphatase) [facility]2019-07-10 05:35:00 Test Item Value Reference Range Interpretation Comments Albumin/Globulin Ratio (test code = 0.7 1 1.1-1.8 Albumin/Globulin Ratio) [facility]2019-07-10 05:35:00 Test Item Value Reference Range Interpretation Comments Albumin (test code = Albumin) 3.2 3.4-5.0 [facility]2019-07-10 05:35:00 Test Item Value Reference Range Interpretation Comments Alanine Aminotransferase (ALT/SGPT) 57 12-78 (test code = Alanine Aminotransferase (ALT/SGPT)) [facility]2019-07-10 05:35:00 Test Item Value Reference Range Interpretation Comments White Blood Count (test code = White 2.9 4.3-10.9 Blood Count) [facility]2019-07-10 05:35:00 Test Item Value Reference Range Interpretation Comments Red Cell Distribution Width (test code 17.2 12.1-15.2 = Red Cell Distribution Width) [facility]2019-07-10 05:35:00 Test Item Value Reference Range Interpretation Comments Red Blood Count (test code = Red Blood 3.49 3.86-4.86 Count) [facility]2019-07-10 05:35:00 Test Item Value Reference Range Interpretation Comments Platelet Count (test code = Platelet 116 152-406 Count) [facility]2019-07-10 05:35:00 Test Item Value Reference Range Interpretation Comments Neutrophils % (test code = Neutrophils 49.4 41.7-73.7 %) [facility]2019-07-10 05:35:00 Test Item Value Reference Range Interpretation Comments Monocytes % (test code = Monocytes %) 10.4 3.3-12.3 [facility]2019-07-10 05:35:00 Test Item Value Reference Range Interpretation Comments Mean Platelet Volume (test code = Mean 8.7 7.6-11.3 Platelet Volume) [facility]2019-07-10 05:35:00 Test Item Value Reference Range Interpretation Comments Mean Corpuscular Volume (test code = 98.2 80-100 Mean Corpuscular Volume) [facility]2019-07-10 05:35:00 Test Item Value Reference Range Interpretation Comments Mean Corpuscular Hemoglobin Concent 33.0 32.0-36.0 (test code = Mean Corpuscular Hemoglobin Concent) [facility]2019-07-10 05:35:00 Test Item Value Reference Range Interpretation Comments Mean Corpuscular Hemoglobin (test 32.4 pg 27.0-35.0 code = Mean Corpuscular Hemoglobin) [facility]2019-07-10 05:35:00 Test Item Value Reference Range Interpretation Comments Lymphocytes % (test code = Lymphocytes 30.3 15.3-44.8 %) [facility]2019-07-10 05:35:00 Test Item Value Reference Range Interpretation Comments Hemoglobin (test code = Hemoglobin) 11.3 12.0-15.0 [facility]2019-07-10 05:35:00 Test Item Value Reference Range Interpretation Comments Hematocrit (test code = Hematocrit) 34.3 36.0-45.0 [facility]2019-07-10 05:35:00 Test Item Value Reference Range Interpretation Comments Eosinophils % (test code 8.8 See_Comment [A utomated message] The = Eosinophils %) system [facility] h generated this result tra nsmitted reference range : <=4.4. The reference r alba was not used to int erpret this result as normal/abnormal . [facility]2019-07-10 05:35:00 Test Item Value Reference Range Interpretation Comments Basophils % (test code 1.1 See_Comment [Aut omated message] The = Basophils %) system which generated this result tra nsmitted reference range : <=1.3. The reference r alba was not used to int erpret this result as normal/abnormal . [facility]2019-07-10 05:35:00 Test Item Value Reference Range Interpretation Comments Absolute Neutrophil (test code = 1.4 1.8-8.0 Absolute Neutrophil) [facility]2019-07-10 05:35:00 Test Item Value Reference Range Interpretation Comments Absolute Monocytes (CBC) (test code = 0.3 0.1-1.3 Absolute Monocytes (CBC)) [facility]2019-07-10 05:35:00 Test Item Value Reference Range Interpretation Comments Absolute Lymphocytes (CBC) (test code = 0.9 0.7-4.9 Absolute Lymphocytes (CBC)) [facility]2019-07-10 05:35:00 Test Item Value Reference Range Interpretation Comments Absolute Eosinophils 0.3 See_Comment [Autom ated message] The (CBC) (test code = system wh ich generated Absolute Eosinophils this re sult transmitted (CBC)) reference range : <=0.5. The reference r alba was not used to int erpret this result as normal/abnormal . [facility] Cspraxk7773-36-60 05:35:00 Test Item Value Reference Range Interpretation Comments Absolute Basophils 0.0 See_Comment [Automat ed message] The (CBC) (test code = system wh ich generated Absolute Basophils this resu lt transmitted (CBC)) reference range : <=0.5. The reference r alba was not used to int erpret this result as normal/abnormal . [facility] Yjhpsim9468-03-72 05:43:00 Test Item Value Reference Range Interpretation Comments Prothrombin Time (test code = 12.9 9.5-12.5 Prothrombin Time) [facility] Dmnuxwq6327-67-82 05:43:00 Test Item Value Reference Range Interpretation Comments INR International Normalized Ratio 1.10 1 (test code = INR International Normalized Ratio) [facility] Etaxkms4070-34-71 05:43:00 Test Item Value Reference Range Interpretation Comments Triglycerides Level (test code = 89 Triglycerides Level) [facility] Aergeys0984-59-55 05:43:00 Test Item Value Reference Range Interpretation Comments Phosphorus Level (test code = 6.3 2.5-4.9 Phosphorus Level) [facility] Hlwryhd6451-34-70 05:43:00 Test Item Value Reference Range Interpretation Comments Magnesium Level (test code = Magnesium 2.3 1.8-2.4 Level) [facility]2019-07-09 05:43:00 Test Item Value Reference Range Interpretation Comments LDL Cholesterol, Calculated (test code 47 1 = LDL Cholesterol, Calculated) [facility] Vspwgtu4135-41-30 05:43:00 Test Item Value Reference Range Interpretation Comments HDL Cholesterol (test code = HDL 57 40-60 Cholesterol) [facility] Pvbzqye1711-60-14 05:43:00 Test Item Value Reference Range Interpretation Comments Cholesterol/HDL Ratio (test code = 2.14 1 Cholesterol/HDL Ratio) [facility] Kxkhnqm5615-69-23 05:43:00 Test Item Value Reference Range Interpretation Comments Cholesterol Level (test code = 122 Cholesterol Level) [facility]2019-07-08 19:49:00 Test Item Value Reference Range Interpretation Comments Troponin I (test code = 0.59 See_Comment [Au tomated message] The Troponin I) system which ge nerated this result tra nsmitted reference range : <=0.045. The reference r alba was not used to int erpret this result as normal/abnormal . [facility]2019-07-08 12:50:00 Test Item Value Reference Range Interpretation Comments Hepatitis B Surface Hepatitis B Surface Antigen (test code = Antigen Hepatitis B Surface Antigen) [facility]2019-07-08 12:50:00 Test Item Value Reference Range Interpretation Comments Hepatitis B Surface Hepatitis B Surface Antibody (test code = Antibody Hepatitis B Surface Antibody) [facility]2019-07-08 12:50:00 Test Item Value Reference Range Interpretation Comments Hepatitis B Core Total Hepatitis B Core Total Antibody (test code = Antibody Hepatitis B Core Total Antibody) [facility]2019-07-08 12:50:00 Test Item Value Reference Range Interpretation Comments Hepatitis C Antibody Hepatitis C Antibody (test code = Hepatitis C Antibody) [facility]2019-07-08 12:50:00 Test Item Value Reference Range Interpretation Comments Hepatitis C Ab Signal/Cutoff Ratio 0.05 ratio (test code = Hepatitis C Ab Signal/Cutoff Ratio) [facility]2019-07-08 07:36:00 Test Item Value Reference Range Interpretation Comments Rapid Troponin I (test 0.66 See_Comment [Aut omated message] The code = Rapid Troponin system which generated I) this result tra nsmitted reference range : <=0.045. The reference r alba was not used to int erpret this result as normal/abnormal . [facility]2019-07-08 07:36:00 Test Item Value Reference Range Interpretation Comments DP-Oli-I-Type Natriuretic Peptide (test 73943 code = XY-Esa-Z-Type Natriuretic Peptide) [facility]
[2021-12-11] MEDS ORDERED: LEVALBUTEROL 1.25 MG/3 ML NEB ONE (13:21)
[2021-12-11] MEDS ORDERED: IPRATROPIUM BROM 0.5MG/2.5ML ONE (13:21)
[2021-12-11 13:25] LABS: Absolute Lymphocytes (CBC) 0.8 K/uL (0.7-4.9); Hematocrit 27.4 % (36.0-45.0); Lymphocytes % 19.8 % (15.3-44.8); MCV 92.9 fL (80-100); MPV 7.9 fL (7.6-11.3); Protime INR 1.19; RBC Red Blood Cell Count 2.94 M/uL (3.86-4.86)
--- NOTE | 2021-12-11 13:48 | RAD REPORT ---
EXAM DESCRIPTION: Samuel Single View12/11/2021 1:31 pm CLINICAL HISTORY: Cough COMPARISON: December 07, 2021 FINDINGS: Moderate right pleural effusion with basilar atelectasis without significant change Left lung appears clear. Heart remains enlarged. Postsurgical changes involve chest. Pacemaker leads in place IMPRESSION: Moderate right pleural effusion without significant change
--- NOTE | 2021-12-11 14:05 | EDPHYS ---
Physician Documentation [facility] Name: Qiana Valdez Age: 66 yrs Sex: Female : 1955 Arrival Date: 12/11/2021 Time: 12:27 Bed 3 Private MD: ED Physician Duane Singh HPI: 12/11 13:57 This 66 yrs old Female presents to ER via EMS with complaints of Breathing ford Difficulty. 13:57 The patient has shortness of breath at rest, with light activity. Onset: The ford symptoms/episode began/occurred just prior to arrival. Duration: The symptoms are continuous, and are steadily getting worse. The patient's shortness of breath is aggravated by drinking, light activity, prone position, supine position. Associated signs and symptoms: Pertinent positives: non-productive cough. Severity of symptoms: At their worst the symptoms were moderate in the emergency department the symptoms have improved mildly. The patient has not experienced similar symptoms in the past. Historical: - Allergies: 13:08 No Known Allergies; tp1 - PMHx: 13:08 Chronic ischemic heart disease; DIALYSIS MWF; Diabetes - IDDM; GERD; High Cholesterol; tp1 hyperparathyroidism; Hypertension; IRON DEFICIENCY ANEMIA; Pacemaker; Myocardial infarction; ESRD; - Immunization history:: Client reports receiving the 2nd dose of the Covid vaccine. - Social history:: Smoking status: Patient denies any tobacco usage or history of. - Family history:: not pertinent. ROS: 13:57 Constitutional: Negative for fever, chills, and weight loss, Eyes: Negative for injury, ford pain, redness, and discharge, ENT: Negative for injury, pain, and discharge, Neck: Negative for injury, pain, and swelling, Cardiovascular: Negative for chest pain, palpitations, and edema, Abdomen/GI: Negative for abdominal pain, nausea, vomiting, diarrhea, and constipation, Back: Negative for injury and pain, : Negative for injury, bleeding, discharge, and swelling, Skin: Negative for injury, rash, and discoloration, Neuro: Negative for headache, weakness, numbness, tingling, and seizure, Psych: Negative for depression, anxiety, suicide ideation, homicidal ideation, and hallucinations, Allergy/Immunology: Negative for hives, rash, and allergies, Endocrine: Negative for neck swelling, polydipsia, polyuria, polyphagia, and marked weight changes, Hematologic/Lymphatic: Negative for swollen nodes, abnormal bleeding, and unusual bruising. 13:57 Respiratory: Positive for cough, dyspnea on exertion, orthopnea, shortness of breath, at rest. 13:57 MS/extremity: Positive for laceration, pain, tenderness, of the . 13:57 Neuro: Positive for weakness. Exam: 13:59 Constitutional: This is a well developed, well nourished patient who is awake, alert, ford and in no acute distress. Head/Face: Normocephalic, atraumatic. Eyes: Pupils equal round and reactive to light, extra-ocular motions intact. Lids and lashes normal. Conjunctiva and sclera are non-icteric and not injected. Cornea within normal limits. Periorbital areas with no swelling, redness, or edema. ENT: Nares patent. No nasal discharge, no septal abnormalities noted. Tympanic membranes are normal and external auditory canals are clear. Oropharynx with no redness, swelling, or masses, exudates, or evidence of obstruction, uvula midline. Mucous membranes moist. Neck: Trachea midline, no thyromegaly or masses palpated, and no cervical lymphadenopathy. Supple, full range of motion without nuchal rigidity, or vertebral point tenderness. No Meningismus. Chest/axilla: Normal chest wall appearance and motion. Nontender with no deformity. No lesions are appreciated. Cardiovascular: Regular rate and rhythm with a normal S1 and S2. No gallops, murmurs, or rubs. Normal PMI, no JVD. No pulse deficits. Abdomen/GI: Soft, non-tender, with normal bowel sounds. No distension or tympany. No guarding or rebound. No evidence of tenderness throughout. Back: No spinal tenderness. No costovertebral tenderness. Full range of motion. Female : Normal external genitalia. Skin: Warm, dry with normal turgor. Normal color with no rashes, no lesions, and no evidence of cellulitis. Neuro: Awake and alert, GCS 15, oriented to person, place, time, and situation. Cranial nerves II-XII grossly intact. Motor strength 5/5 in all extremities. Sensory grossly intact. Cerebellar exam normal. Normal gait. Psych: Awake, alert, with orientation to person, place and time. Behavior, mood, and affect are within normal limits. 13:59 ECG was reviewed by the Attending Physician. 13:59 Respiratory: moderate respiratory distress is noted, Respirations: labored breathing, that is mild, Breath sounds: decreased breath sounds, that are moderate, are heard in the right middle lobe, right lower lobe, right posterior middle lobe and right posterior lower lobe. Vital Signs: 12:20 BP 147 / 66; Pulse 82; Resp 40; Temp 98.1; Pulse Ox 100% on R/A; Weight 62.3 kg; Height tp1 5 ft. 3 in. (160.02 cm); 13:00 Resp 25; Pulse Ox 100% on CPAP; tp1 14:00 Resp 24; Pulse Ox 99% on CPAP; vg1 15:00 Resp 24; Pulse Ox 99% on CPAP; vg1 16:02 BP 183 / 81; Pulse 87; Resp 25; Pulse Ox 99% on CPAP; tp1 17:05 BP 157 / 68; Pulse 90; Resp 24; Pulse Ox 97% on CPAP; tp1 12:20 Body Mass Index 24.33 (62.30 kg, 160.02 cm) tp1 MDM: 12:55 Patient medically screened. ford 15:12 Differential diagnosis: Anemia asthma, Bronchitis CHF exacerbation. Antibiotic ford administration: Not indicated. The patient's Wells Deep Vein Thrombosis Score was calculated as follows: Imm/Surg in last 4 wks (1.5 Pts) Total Score: 0-2 Pts- Low Risk. The patient's pulmonary embolism risk score was calculated as follows: Total Score: 0-2 points. This patient was found to be at low risk for a pulmonary embolism by using the Well's assessment criteria. Immunization status: Influenza vaccine: Data reviewed: vital signs, nurses notes, lab test result(s), EKG, radiologic studies, doppler, plain films. Data interpreted: desk monitor: rate is 82 beats/min, rhythm is regular, Pulse oximetry:. Test interpretation: by ED physician or midlevel provider: ECG, plain radiologic studies. 12/11 13:01 Order name: Basic Metabolic Panel; Complete Time: 15:10 ford 12/11 13:01 Order name: CBC with Diff; Complete Time: 13:56 ford 12/11 13: Order name: LFT's; Complete Time: 15:10 ford 12/11 13:01 Order name: Magnesium; Complete Time: 15:10 ford 12/11 13:01 Order name: NT PRO-BNP; Complete Time: 15:10 [facility] 12/11 13:01 Order name: PT-INR; Complete Time: 13:56 [facility] 12/11 13:01 Order name: Troponin HS; Complete Time: 15:10 [facility] 12/11 13:01 Order name: Blood Culture Adult (2) [facility] 12/11 13:01 Order name: Lactate; Complete Time: 13:56 [facility] 12/11 13:01 Order name: SARS-COV-2 RT PCR (Document "Date of Onset" if Symptomatic); Complete Time: [facility] 15:10 12/11 13:01 Order name: Lipase; Complete Time: 15:10 [facility] 12/11 15:09 Order name: CBC with Automated Diff [facility] 12/11 15:09 Order name: CBC with Automated Diff [facility] 12/11 15:09 Order name: Comprehensive Metabolic Panel [facility] 12/11 13:01 Order name: XRAY Chest (1 view); Complete Time: 13:56 [facility] 12/11 13:01 Order name: EKG; Complete Time: 13:02 [facility] 12/11 13:01 Order name: Cardiac monitoring; Complete Time: 13:08 [facility] 12/11 13:01 Order name: EKG - Nurse/Tech; Complete Time: 13:08 [facility] 12/11 13:01 Order name: IV Saline Lock; Complete Time: 13:08 [facility] 12/11 13:01 Order name: Labs collected and sent; Complete Time: 13:08 [facility] 12/11 13:01 Order name: O2 Per Protocol; Complete Time: 13:08 [facility] 12/11 13:01 Order name: O2 Sat Monitoring; Complete Time: 13:08 [facility] 12/11 13:01 Order name: BIPAP [facility] 12/11 15:09 Order name: CONS Physician Consult [facility] 12/11 15:09 Order name: Renal [facility] 12/11 15:09 Order name: Comprehensive Metabolic Panel [facility] 12/11 15:11 Order name: CONS Physician Consult [facility] 12/11 15:11 Order name: Troponin High Sensitivity [facility] 12/11 15:12 Order name: Misc. Order: BEBTELOVIMAB [facility] EC:59 Rate is 80 beats/min. Rhythm is regular. QRS [address] is Normal. MT interval is normal. QRS ford interval is normal. QT interval is normal. No Q waves. T waves are Normal. ST Segment is elevated in leads aVR, V1, V2. ST Segment is depressed in leads I, II, III, aVL, aVF, V3, V4, V5, V6. Clinical impression: Abnormal EKG without significant change. Interpreted by me. Reviewed by me. Administered Medications: 13:17 Drug: Xopenex (levalbuterol) 1.25 mg Route: Inhalation; vg1 13:17 Drug: AtroVENT (ipratropium) Aerosol 0.5 mg Route: Inhalation; vg1 Disposition Summary: 12/11/21 14:04 Hospitalization Ordered Hospitalization Status: Inpatient Admission ford Provider: Ledy Argueta cha Location: Telemetry/MedSurg (Inpatient) ford Condition: Fair ford Problem: new ford Symptoms: have improved ford Bed/Room Type: Standard ford Room Assignment: 414(12/11/21 15:49) bd Diagnosis - End stage renal disease - on HD, M,W,F ford - Unspecified combined systolic (congestive) and diastolic (congestive) heart failure ford - Cardiomegaly ford - Pleural effusion in other conditions classified elsewhere - MODERATE RIGHT ford - Anemia, unspecified ford - Hypoxemia ford - Non ST elevation CT ford - Coronavirus infection, unspecified ford - SARS-associated coronavirus as the cause of diseases classified elsewhere ford Forms: - Medication Reconciliation Form ford - SBAR form ford Signatures: Dispatcher [employer] EDSarah Sky Corey, MD MD cha Waters, Shelly, MARINE EQUIPMENT SALES ENGINEER-C MARINE EQUIPMENT SALES ENGINEER-Vivian Menjivar RN RN vg1 Soledad Grullon RN RN tp1 Corrections: (The following items were deleted from the chart) 15:49 14:04 ford bd
--- NOTE | 2021-12-11 14:05 | ER ---
Nurse's Notes [facility] Name: Qiana Valdez Age: 66 yrs Sex: Female : 1955 Arrival Date: 12/11/2021 Time: 12:27 Bed 3 Private MD: Diagnosis: End stage renal disease-on HD, M,W,F;Unspecified combined systolic (congestive) and diastolic (congestive) heart failure;Cardiomegaly;Pleural effusion in other conditions classified elsewhere-MODERATE RIGHT;Anemia, unspecified;Hypoxemia;Non ST elevation [place];Coronavirus infection, unspecified;SARS-associated coronavirus as the cause of diseases classified elsewhere Presentation: 12/11 12:20 Chief complaint: EMS states: toned out to [facility] for SOB. EMS reports 2-3 word tp1 dysonea, O2 98-99%. PT was not dialyzed. EMS applied CPAP, ECG normal sinus, FBS 194. PT reported having contact with someone coviid positive on 12/10/21. 12:20 Method Of Arrival: EMS: [facility] tp1 12:20 Coronavirus screen: Vaccine status: Patient reports receiving the 2nd dose of the covid tp1 vaccine. Ebola Screen: Patient negative for fever greater than or equal to 101.5 degrees Fahrenheit, and additional compatible Ebola Virus Disease symptoms Patient denies exposure to infectious person. Patient denies travel to an Ebola-affected area in the 21 days before illness onset. Initial Sepsis Screen: Does the patient meet any 2 criteria? RR > 20 per min. No. Patient's initial sepsis screen is negative. Does the patient have a suspected source of infection? No. Patient's initial sepsis screen is negative. Risk Assessment: Do you want to hurt yourself or someone else? Patient reports no desire to harm self or others. Onset of symptoms was December 11, 2021. 12:20 Acuity: SIXTO 2 tp1 Triage Assessment: 12:20 General: Appears distressed, uncomfortable, Behavior is cooperative, anxious. Pain: tp1 Complains of pain in chest Pain does not radiate. Pain currently is 4 out of 10 on a pain scale. Pain began today. EENT: No signs and/or symptoms were reported regarding the EENT system. Neuro: Barnett Agitation-Sedation Scale (RASS): 0 - Alert and Calm Level of Consciousness is awake, alert, obeys commands, Oriented to person, place, time, situation, Reports dizziness. Cardiovascular: Patient's skin is warm and dry. Respiratory: Reports shortness of breath Airway is patent Respiratory effort is even, labored, using tripod position, Respiratory pattern is regular, symmetrical, Patient placed CPAP: Breath sounds are clear bilaterally. Onset: The symptoms/episode began/occurred today, the patient has moderate shortness of breath. GI: Abdomen is flat, non-distended, bruised on right lower quadrant Patient currently denies nausea, vomiting. : No signs and/or symptoms were reported regarding the genitourinary system. Derm: Skin is pink, warm \\T\\ dry. Musculoskeletal: Circulation, motion, and sensation intact. Historical: - Allergies: 13:08 No Known Allergies; tp1 - PMHx: 13:08 Chronic ischemic heart disease; DIALYSIS MWF; Diabetes - IDDM; GERD; High Cholesterol; tp1 hyperparathyroidism; Hypertension; IRON DEFICIENCY ANEMIA; Pacemaker; Myocardial infarction; ESRD; - Immunization history:: Client reports receiving the 2nd dose of the Covid vaccine. - Social history:: Smoking status: Patient denies any tobacco usage or history of. - Family history:: not pertinent. Screenin:01 Abuse screen: Denies threats or abuse. Denies injuries from another. Nutritional vg1 screening: No deficits noted. Tuberculosis screening: No symptoms or risk factors identified. Fall Risk No fall in past 12 months (0 pts). No secondary diagnosis (0 pts). IV access (20 points). Ambulatory Aid- None/Bed Rest/Nurse Assist (0 pts). Gait- Normal/Bed Rest/Wheelchair (0 pts) Mental Status- Oriented to own ability (0 pts). Total Overton Fall Scale indicates No Risk (0-24 pts). Assessment: 12:20 General: see triage notes . tp1 12:22 Reassessment: respiratory at bedside. tp1 13:22 Reassessment: No changes from previously documented assessment. states it hurts with tp1 deep breath. Son at bedside. 14:22 Reassessment: Patient appears in no apparent distress at this time. No changes from tp1 previously documented assessment. Patient and/or family updated on plan of care and expected duration. Pain level reassessed. states "breathing treatment helped a little bit", Continues to CO chest pain with deep inhalation. 15:21 Reassessment: Patient appears in no apparent distress at this time. No changes from tp1 previously documented assessment. Patient and/or family updated on plan of care and expected duration. Pain level reassessed. 16:00 Reassessment: Patient appears in no apparent distress at this time. No changes from vg1 previously documented assessment. Patient is alert, oriented x 3, equal unlabored respirations, skin warm/dry/pink. 16:02 Reassessment: attempted to give report. vg1 17:06 Reassessment: Patient appears in no apparent distress at this time. No changes from tp1 previously documented assessment. Patient is alert, oriented x 3, equal unlabored respirations, skin warm/dry/pink. Patient denies pain at this time. 17:13 Cardiovascular: Rhythm is. tp1 Vital Signs: 12:20 BP 147 / 66; Pulse 82; Resp 40; Temp 98.1; Pulse Ox 100% on R/A; Weight 62.3 kg; Height tp1 5 ft. 3 in. (160.02 cm); 13:00 Resp 25; Pulse Ox 100% on CPAP; tp1 14:00 Resp 24; Pulse Ox 99% on CPAP; vg1 15:00 Resp 24; Pulse Ox 99% on CPAP; vg1 16:02 BP 183 / 81; Pulse 87; Resp 25; Pulse Ox 99% on CPAP; tp1 17:05 BP 157 / 68; Pulse 90; Resp 24; Pulse Ox 97% on CPAP; tp1 12:20 Body Mass Index 24.33 (62.30 kg, 160.02 cm) tp1 ED Course: 12:20 Arm band placed on. tp1 12:20 Patient has correct armband on for positive identification. Placed in gown. Bed in low tp1 position. Call light in reach. Side rails up X2. 12:20 Client placed on continuous cardiac and pulse oximetry monitoring. NIBP monitoring tp1 applied. 12:27 Patient arrived in ED. jl7 12:35 EKG done, by ED staff. tp1 12:40 Inserted saline lock: 20 gauge in left antecubital area, using aseptic technique. Blood tp1 collected. 12:48 Soledad Grullon RN is Primary Nurse. tp1 12:55 Duane Singh MD is Attending Physician. [facility] 13:01 Triage completed. tp1 13:33 XRAY Chest (1 view) In Process Unspecified. EDMS 13:46 COVID swab sent to lab. tp1 14:02 Ledy Argueta MD is Hospitalizing Provider. [facility] 17:12 No provider procedures requiring assistance completed. Patient admitted, IV remains in tp1 place. Administered Medications: 13:17 Drug: Xopenex (levalbuterol) 1.25 mg Route: Inhalation; vg1 13:17 Drug: AtroVENT (ipratropium) Aerosol 0.5 mg Route: Inhalation; vg1 Medication: 17:13 VIS not applicable for this client. tp1 Outcome: 14:04 Decision to Hospitalize by Provider. ford 17:12 Admitted to Med/surg accompanied by tech, via wheelchair, room 412, with chart, Report tp1 called to faizan DORSEY 17:12 Condition: good 17:12 Instructed on the need for admit. 17:13 Patient left the ED. tp1 Signatures: Dispatcher [employer] EDCA Duane Singh MD MD cha Leal, Jahala RN RN [id number] Vivian Costello RN RN vg1 Soledad Grullon RN RN tp1 Corrections: (The following items were deleted from the chart) 16:17 16:02 Pulse 87bpm; Resp 25bpm; Pulse Ox 99% CPAP; vg1 tp1
[2021-12-11 14:24] LABS: ALT/SGPT 26 U/L (12-78); AST/SGOT 25 U/L (15-37); Albumin 3.1 g/dL (3.4-5.0); Alkaline Phosphatase 192 U/L (45-117); BUN Blood Urea Nitrogen 59 mg/dL (7-18); Bicarbonate 20 mmol/L (21-32); Bilirubin Direct 0.4 mg/dL (0-0.2); Glomerular Filtration Rate 7 ml/min (=/>90); Glucose Level 104 mg/dL (74-106); Lipase 342 U/L (73-393); Magnesium 2.6 mg/dL (1.8-2.4); NT PRO-BNP > 175000 pg/mL (<125); Potassium 4.7 mmol/L (3.5-5.1); Protein, Total 9.1 g/dL (6.4-8.2); Sodium Level 133 mmol/L (136-145)
[2021-12-11 14:26] LABS: Troponin High Sensitivity 612.7 pg/mL (<58.9)
--- NOTE | 2021-12-11 14:56 | P.CNS ---
Date of Consult: 12/11/21 Reason for Consult: ESRD Requesting Physician: Ledy Argueta Chief Complaint: SOB History of Present Illness: 66F w/ PMHx of ESRD on HD MWF, who was at [facility] this am with increased SOB, chills, & lethargic admitted for acute respi failure & covid infection. CXR showed mod R pleural effusion. She received HD today. Allergies No Known Allergies Allergy (Verified 03/09/21 23:52) Home Medications: Aspirin [Ecotrin 81 MG] 81 mg PO DAILY 10/13/21 Atorvastatin Calcium [Lipitor] 40 mg PO BEDTIME 10/13/21 Carvedilol [Coreg] 12.5 mg PO BID 10/13/21 Hydralazine [Apresoline*] 50 mg PO DAILY 10/13/21 Isosorbide Mononitrate [Isosorbide Mononitrate ER] 30 mg PO DAILY #30 tab.er.24h 10/13/21 Mirtazapine 15 mg PO BEDTIME 10/13/21 Trazodone [Desyrel*] 50 mg PO BEDTIME 10/13/21 levETIRAcetam [Keppra*] 500 mg PO BEDTIME 10/13/21 Clopidogrel Bisulfate [Plavix*] 75 mg PO DAILY #30 tablet 10/16/21 Docusate [Colace Cap*] 100 mg PO DAILY #30 cap 11/15/21 Hydrocodone 5/APAP 325 [[place] 5/325*] 1 tab PO Q6H PRN #30 tab 11/15/21 Amoxicillin [Amoxil Cap*] 500 mg PO DAILY #7 cap 11/26/21 Epoetin [Retacrit] 10,000 unit IV EVERY HD vial 11/26/21 Sevelamer Carbonate [Renvela*] 2,400 mg PO TIDWM #270 tab 11/26/21 - Past Medical/Surgical History Diabetic: Yes -: Hypertension -: Type 2 Diabetes Mellitus, Non-Insulin Dependent -: ESRD - MWF -: CAD with prior stent S/P CABG -: Hyperlipidemia -: GERD -: Anemia of chronic disease with iron deficiency -: Hyperparathyroidism -: Anemia of chronic disease with iron deficiency -: Diabetic neuropathy -: COVID-19 01/21/2020 -: Triple bypass 2016 -: Pacemaker -: Tubal ligation -: Fistula aneursym reconstruction 4 times -: Bilateral cataract surgery Psychosocial/ Personal History: Lives at home with daughter - Family History Mother Medical History: Heart disease, Diabetes Father Medical History: Heart disease, Diabetes - Social History Smoking Status: Unknown if ever smoked Alcohol use: No CD- Drugs: No Caffeine use: Yes Review of Systems General: Weakness Eyes: Unremarkable ENT: Unremarkable Respiratory: Shortness of Breath, SOB with Excertion Cardiovascular: Unremarkable Gastrointestinal: Unremarkable Genitourinary: Unremarkable Musculoskeletal: Other (Generalized weakness) Integumentary: Unremarkable Neurological: Unremarkable Lymphatics: Unremarkable Physical Examination General: Other (Appears chronically ill) HEENT: Atraumatic, Normocephalic Neck: Supple, JVD not distended Respiratory: Other (Symmetric chest expansion) Cardiovascular: No rubs, No murmurs Gastrointestinal: Soft and benign, No rebound Musculoskeletal: No clubbing Integumentary: No warmth Neurological: Other (+lethargy) Urinary: Other (No bladder distention) External genitalia: Deferred Rectal: Deferred Laboratory Data (last 24 hrs) 12/11/21 13:00: PT 13.1 H, INR 1.19 12/11/21 13:00: WBC 4.20 L, Hgb 9.3 L, Hct 27.4 L, Plt Count 170 12/11/21 13:00: Sodium 133 L, Potassium 4.7, BUN 59 H, Creatinine 6.30 H*, Glucose 104, Magnesium 2.6 H, Total Bilirubin 1.0, AST 25, ALT 26, Alkaline Phosphatase 192 H, Lipase 342 Conclusions/Impression: # ESRD on HD MWF HD received today Renal diet Monitor renal panel # Acute respi failure +Mod R pleural effusion HD as above # Covid infection Per primary team # Htn Cont current med regimen # Anemia Monitor H/H # Renal osteodystrophy Monitor Ca & Phos # DM2 Mngt per primary team
[2021-12-11] MEDS ORDERED: ONDANSETRON 4 MG/2 ML VIAL IV PRN (15:06)
[2021-12-11] MEDS ORDERED: ACETAMINOPHEN 500 MG TAB PO PRN (15:06)
[2021-12-11] MEDS ORDERED: MORPHINE 2 MG/ML SYR IV PRN (15:06)
[2021-12-11] MEDS ORDERED: HYDROCODONE/APAP 5/325 MG TAB PO PRN (15:09)
[2021-12-11] MEDS: SEVELAMER CARBONATE 800 MG TABLET PO SCH (17:00)
[2021-12-11 17:29] VITALS: BMI 24.3
--- NOTE | 2021-12-11 18:54 | P.HP ---
Certification for Inpatient Patient admitted to: Observation With expected LOS: <2 Midnights Patient will require the following post-hospital care: None Practitioner: I am a practitioner with admitting privileges, knowledge of patient current condition, hospital course, and medical plan of care. Services: Services provided to patient in accordance with Admission requirements found in Title 42 Section 412.3 of the Code of Federal Regulations Patient History Date of Service: 12/11/21 Reason for admission: Fluid overload; end-stage renal disease History of Present Illness: Pt is a 66-year-old female that came to the hospital with fluid overload. Patient has history of end-stage renal disease. Patient with also a moderate pleural effusion. Patient came into the hospital because of the shortness of breath. Patient will be admitted to the hospital for hemodialysis. Anticipate discharge in the morning. Allergies No Known Allergies Allergy (Verified 03/09/21 23:52) Home Medications: Aspirin [Ecotrin 81 MG] 81 mg PO DAILY 10/13/21 Atorvastatin Calcium [Lipitor] 40 mg PO BEDTIME 10/13/21 Carvedilol [Coreg] 12.5 mg PO BID 10/13/21 Hydralazine [Apresoline*] 50 mg PO DAILY 10/13/21 Isosorbide Mononitrate [Isosorbide Mononitrate ER] 30 mg PO DAILY #30 tab.er.24h 10/13/21 Mirtazapine 15 mg PO BEDTIME 10/13/21 Trazodone [Desyrel*] 50 mg PO BEDTIME 10/13/21 levETIRAcetam [Keppra*] 500 mg PO BEDTIME 10/13/21 Clopidogrel Bisulfate [Plavix*] 75 mg PO DAILY #30 tablet 10/16/21 Docusate [Colace Cap*] 100 mg PO DAILY #30 cap 11/15/21 Hydrocodone 5/APAP 325 [Leiter 5/325*] 1 tab PO Q6H PRN #30 tab 11/15/21 Amoxicillin [Amoxil Cap*] 500 mg PO DAILY #7 cap 11/26/21 Epoetin [Retacrit] 10,000 unit IV EVERY HD vial 11/26/21 Sevelamer Carbonate [Renvela*] 2,400 mg PO TIDWM #270 tab 11/26/21 - Past Medical/Surgical History Has patient received pneumonia vaccine in the past: Yes Diabetic: Yes -: Hypertension -: Type 2 Diabetes Mellitus, Non-Insulin Dependent -: ESRD - MWF -: CAD with prior stent S/P CABG -: Hyperlipidemia -: GERD -: Anemia of chronic disease with iron deficiency -: Hyperparathyroidism -: Anemia of chronic disease with iron deficiency -: Diabetic neuropathy -: COVID-19 01/21/2020 -: Triple bypass 2016 -: Pacemaker -: Tubal ligation -: Fistula aneursym reconstruction 4 times -: Bilateral cataract surgery Psychosocial/ Personal History: Lives at home with daughter - Family History Mother Medical History: Heart disease, Diabetes Father Medical History: Heart disease, Diabetes - Social History Alcohol use: No CD- Drugs: No Caffeine use: Yes Review of Systems 10-point ROS is otherwise unremarkable Physical Examination - Vital Signs Temperature: 98.1 F Blood Pressure: 157/68 Pulse: 90 Respirations: 24 Pulse Ox (%): 96 - Physical Exam General: Alert, In no apparent distress HEENT: Atraumatic, PERRLA, Mucous membr. moist/pink, EOMI, Sclerae nonicteric Neck: Supple, 2+ carotid pulse no bruit, No LAD, Without JVD or thyroid abnormality Respiratory: Diminished Cardiovascular: Regular rate/rhythm, Normal S1 S2 Gastrointestinal: Normal bowel sounds, No tenderness Musculoskeletal: No tenderness Integumentary: No rashes Neurological: Normal gait, Normal speech, Normal strength at 5/5 x4 extr, Normal tone, Normal affect Lymphatics: No axilla or inguinal lymphadenopathy - Studies Laboratory Data (last 24 hrs) 12/11/21 13:00: PT 13.1 H, INR 1.19 12/11/21 13:00: WBC 4.20 L, Hgb 9.3 L, Hct 27.4 L, Plt Count 170 12/11/21 13:00: Sodium 133 L, Potassium 4.7, BUN 59 H, Creatinine 6.30 H*, Glucose 104, Magnesium 2.6 H, Total Bilirubin 1.0, AST 25, ALT 26, Alkaline Phosphatase 192 H, Lipase 342 Assessment & Plan - Problems (Diagnosis) (1) CAD (coronary artery disease) Current Visit: No Status: Acute Qualifiers: Coronary Disease-Associated Artery/Lesion type: bypass graft [place] vs. transplanted heart: [place] Associated angina: with unspecified form of angina Qualified Code(s): I25.709 - Atherosclerosis of coronary artery bypass graft(s), unspecified, with unspecified angina pectoris (2) COVID-19 Current Visit: No Status: Acute (3) History of hypertension Current Visit: No Status: Acute (4) End-stage renal disease on hemodialysis Current Visit: No Status: Chronic (5) Hypertension Current Visit: No Status: Chronic Qualifiers: Hypertension type: primary hypertension Qualified Code(s): I10 - Essential (primary) hypertension (6) Type 2 diabetes mellitus Current Visit: No Status: Chronic Qualifiers: Diabetes mellitus halfway insulin use: without press tender long goods use Diabetes mellitus complication status: without complication Qualified Code(s): E11.9 - Type 2 diabetes mellitus without complications (7) Fluid overload Current Visit: Yes Status: Acute (8) ESRD (end stage renal disease) Current Visit: Yes Status: Acute - Advance Directives Does patient have a Living Will: No Does patient have a Durable POA for Healthcare: No
[2021-12-11] MEDS ORDERED: ATORVASTATIN 40 MG TAB PO SCH (21:00)
[2021-12-11] MEDS ORDERED: levETIRAcetam 500 MG TAB PO SCH (21:00)
[2021-12-11] MEDS ORDERED: MIRTAZAPINE 15 MG TAB PO SCH (21:00)
[2021-12-11] MEDS: carvediloL 12.5 MG TAB PO SCH (22:19)
[2021-12-12 04:22] LABS: Albumin 2.7 g/dL (3.4-5.0); Bilirubin Total 0.7 mg/dL (0.2-1.0); Potassium 4.3 mmol/L (3.5-5.1); Protein, Total 8.1 g/dL (6.4-8.2)
[2021-12-12 04:30] LABS: Absolute Lymphocytes (CBC) 0.6 K/uL (0.7-4.9); Hematocrit 28.5 % (36.0-45.0); Lymphocytes % 20.5 % (15.3-44.8); MCV 93.2 fL (80-100); MPV 7.6 fL (7.6-11.3); RBC Red Blood Cell Count 3.05 M/uL (3.86-4.86)
[2021-12-12 08:56] VITALS: TEMP 98.5; O2SAT 98
[2021-12-12] MEDS ORDERED: CLOPIDOGREL 75 MG TABLET PO SCH (09:00)
[2021-12-12] MEDS ORDERED: ASPIRIN EC 81 MG TAB PO SCH (09:00)
[2021-12-12] MEDS ORDERED: ISOSORBIDE MONO SR 30 MG TAB PO SCH (09:00)
[2021-12-12] MEDS: carvediloL 12.5 MG TAB PO SCH (09:51)
[2021-12-12] MEDS: SEVELAMER CARBONATE 800 MG TABLET PO SCH ×2 (09:51→13:32)
[2021-12-12] MEDS ORDERED: CHLORASEPTIC LOZENGES PO PRN (11:49)
[2021-12-12] MEDS ORDERED: CEFDINIR 300 MG CAP PO SCH (12:00)
--- NOTE | 2021-12-12 14:30 | P.PN ---
Subjective Date of Service: 12/12/21 Chief Complaint: SOB Subjective Pt was admitted with SOB , Hx of COVID 19 , CXR with rt pleural effusion today feels better tolerated HD with no complications HD Tuesday Physical exam General: AAOx3, NAD, HEENT PERRLA, moist mucose membrane neck: supple, no elevated JVD CHEST; Mild tachypnea , decreased air entry HEART : RRR. Normal S1,2 no murmur or rub Abd: soft, Nt Ext: no edema Skin : No rash A/P # ESRD on HD MWF next HD Tuesday Renal diet Monitor renal panel # Acute respi failure +Mod R pleural effusion HD as above # Covid infection Per primary team steroids tapering # Htn Cont current med regimen # Anemia Monitor H/H # Renal osteodystrophy Monitor Ca & Phos # DM2 Mngt per primary team Total time spent 45 minutes including documentation, reviewing labs , placing orders and discussing with medical team Physical Examination - Vital Signs Temperature: 98.5 F Blood Pressure: 154/70 Pulse: 70 Respirations: 16 Pulse Ox (%): 91
[2021-12-12 16:35] VITALS: BP 128/63
--- NOTE | 2021-12-12 17:52 | CON ---
Date of Consultation: 12/12/2021 Reason For Consultation: Fluid overload. history of coronary artery disease and CHF. History Of Present Illness: A 66-year-old female, presented to the emergency room due to worsening s hortness of breath, orthopnea, lower extremity edema, found to be fluid overloaded with pleural effus ion, has admitted and had dialysis last night. Feels slightly better today. Denies having chest becca n. Past Medical History: End-stage renal disease, hypertension, coronary artery disease, dyslipidemia, and she is on hemodialysis. Medications: Refer to reconciliation sheet for detailed list. Allergies: NO KNOWN DRUG ALLERGIES. Family History: No premature coronary artery disease or cancer. Social History: Does not smoke or drink. Does not use any drugs. Review of Systems: All systems reviewed and they were negative except for what mentioned in HPI. Physical Examination: Vital Signs: Reviewed. Head and Neck: Pupils are equal, reactive to light. Intact eye movements. Positive JVD. No cervic al lymphadenopathy. Neck is supple. Thyroid is not enlarged. Lungs: Positive crackles in both bases. No accessory muscle use or muscle retraction. Heart: Irregular. No extra sounds. Abdomen: Soft, nontender. Bowel sounds positive. No organomegaly. No masses or hernia. No rigidi ty or rebound. Extremities: No edema, clubbing, or cyanosis. Intact pulses. Skin: No rash. Neurologic: Alert, awake. No acute focal deficits appreciated. Lymph Nodes: No cervical or axillary lymphadenopathy. Investigations: BUN is 31, creatinine is 3.99, and hemoglobin is 9.7. Assessment And Recommendations: 1.Fluid overload. The patient seen by Nephrology, had dialysis, and recommend another session of di alysis prior to discharge as the patient still appears to be fluid overloaded. 2.Coronary artery disease, borderline troponin leaks. The patient had coronary angiogram multiple t imes this year and no intervention is needed. I think this is demand ischemia and we will monitor. 3.Hypertension. Resume home medications and adjust further if needed. 4.Positive COVID, clinically stable. SR/MODL Voice ID: [id number] Report ID: [id number]
[2021-12-13] MEDS ORDERED: predniSONE 20 MG TAB PO SCH (09:00)
--- NOTE | 2021-12-14 05:42 | EKG ---
Test Date: 2021-12-11 Test Time: 12:29:52 [employer]: PAM MEASUREMENT RESULTS: Intervals: Rate: 80 OH: 124 QRSD: 96 QT: 448 QTc: 516 [place]: P: 44 OH: 124 QRS: 15 T: 222 INTERPRETIVE STATEMENTS: Normal sinus rhythm Incomplete right bundle branch block ST & T wave abnormality, consider inferolateral ischemia Prolonged QT Abnormal ECG Compared to ECG 12/07/2021 08:11:55 No significant changes Electronically Signed On 12-14-21 05:39:38 CDT by Papi Mi
== END 2021-12-12 17:51 | disposition home or self-care (01) ==
LOC: ER 12:20 → ERHOLD 15:06 → 4TH 16:50
PROVIDERS: ADMIT Hospitalist; ATTEND Hospitalist
PROC: 5A1D70Z Performance of Urinary Filtration, Intermittent, Less than 6 Hours Per Day (ICD-10-PCS; principal; 2021-12-11)
DX: J96.00 Acute respiratory failure, unspecified whether with hypoxia or hypercapnia (principal); I13.2 Hypertensive heart and chronic kidney disease with heart failure and with stage 5 chronic kidney disease, or end stage renal disease; I50.9 Heart failure, unspecified; E11.22 Type 2 diabetes mellitus with diabetic chronic kidney disease; N18.6 End stage renal disease; Z99.2 Dependence on renal dialysis; U07.1 COVID-19; D63.8 Anemia in other chronic diseases classified elsewhere; I25.709 Atherosclerosis of coronary artery bypass graft(s), unspecified, with unspecified angina pectoris; E61.1 Iron deficiency; K21.9 Gastro-esophageal reflux disease without esophagitis; E78.5 Hyperlipidemia, unspecified; E11.40 Type 2 diabetes mellitus with diabetic neuropathy, unspecified; E21.3 Hyperparathyroidism, unspecified; N25.0 Renal osteodystrophy; I25.2 Old myocardial infarction; Z95.0 Presence of cardiac pacemaker; Z95.1 Presence of aortocoronary bypass graft; Z95.5 Presence of coronary angioplasty implant and graft; Z79.02 Long term (current) use of antithrombotics/antiplatelets; Z79.82 Long term (current) use of aspirin; Z79.899 Other long term (current) drug therapy; Z98.51 Tubal ligation status; Z82.49 Family history of ischemic heart disease and other diseases of the circulatory system; Z83.3 Family history of diabetes mellitus
CPT/HCPCS: 93005; 87040 ×2; 85025 ×2; 80048; 36415; 83735; 85610; 82947 ×5; 80076; 83605; 84484 ×2; 83690; 80053; 83880; 71045; 94760 ×2; 94660 ×2; 99285; 90935; U0003; J7614; J2270; G0257; G0378 ×3

== ENCOUNTER 2022-01-18 16:31 | Inpatient (IN) | payer OTHER ==
--- OUTSIDE RECORDS SUMMARY | 2022-01-18 17:17 | XMS REPORT | Continuity of Care Document ---
:1955 Author Organization [facility] t Address [address] [place] [address] Care Team Providers Name Role Phone Dianna Nunes MD, Wild Noel Primary Care Physician [phone] ANGELA LOCO Attending Clinician Unavail able BRENDA FUENTES Attending Clinician Unavailable FRACISCO HAYDEN Attending Clinician Unavailable Doctor Unassigned, Belt Attending Clinician Unavailable Fracisco Hayden MD Attending Clinician Brenda Fuentes MD Attending Clinician ROGER ARAUJO Attending Clinician Unavailable ROGER ARAUJO Attending Clinician Unavailable Lab, Ang - Db Attending Clinician Unavailable Adele Whitney Attending Clinician Jami Simms LMSW Attending Clinician Liz Sterling DO Attending Clinician ADELE SMART Attending Clinician Unavailable Billy Lu MD Attending Clinician Niki Pool RN Attending Clinician Unavailable NADYA MENDIOLA Attending Clinician Unavailable Neurology Attending Clinician Unavailable Blanka Kilpatrick RN Attending Clinician BILLY LU Attending Clinician Unavailable Joss Cox MD Attending Clinician Kip TRUJILLO, Rony Attending Clinician Shiela TRUJILLO, Jameson Attending Clinician León TRUJILLO, Kanwal Attending Clinician Samia TRUJILLO, Mary Kate Christine Attending Clinician Ladarius Jc MD, Clary Resendiz Attending Clinici an Harjeet TRUJILLO, Luh Attending Clinician Logan Russo MD Attending Clinician LOGAN RUSSO Attending Clinician Unavailable Beronica TRUJILLO, Angela Torres Attending Clinician [phone] Mitchel TRUJILLO, Nicola Thomas Attending Clinician Ju TRUJILLO, Krzysztof Biggs Attending Clinician Marissa TRUJILLO, Fadia Smith Attending Clinician Max TRUJILLO, Asad Whitman Attending Clinician [phone] Nikolay TRUJILLO, Vahid Mai Attending Clinician Ellie TRUJILLO, Sade Sandoval Attending Clinician Robert Allen Attending Clinician Unavailable Donte TRUJILLO, Mili Attending Clinician Twin TRUJILLO, Bertrand Ivy Attending Clinician Dina Hudson Attending Clinician Unavailable Rakan Bennett RN Attending Clinician Unavailable NEIL THOMAS Attending Clinician Unavailable Dangelo Ibrahim DO Attending Clinician Neil Thomas MD Attending Clinician Niki Dill RN Attending Clinician Unavailable Jayjay Frazier Attending Clinician Unavailable THOMAS HUBBARD Attending Clinician Unavailable Alanis Cross PA-C Attending Clinician ALANIS CROSS Attending Clinician Unavailable ANGELA LOCO Admitting Clinician Unavail able BILLY LU Admitting Clinician Unavailable Billy Lu MD Admitting Clinician JAMESON KUO Admitting Clinician Unavailable NIEL THOMAS Admitting Clinician Unavailable Neil Thomas MD Admitting Clinician Payers Payer Name Policy Type Policy Number Effective Date Expiration Date S justice [employer] MEDICARE [id number] 2020 00:00:00 [place]ICAID [place] [id number] 2019 00:00:00 WELLMED/AARP MCARE [id number] 2021 ADV CHOICE PPO 00:00:00 [place]ICAID [place] [id number] 2018 00:00:00 MEDICARE PART A [id number] 2014 \\T\\ B 00:00:00 [place] [id number] 2020 HEALTHCARE/AARP 00:00:00 Problems Condition Condition Condition Status Onset Resolution Last Treating Co mments Source Name Details Category Date Date Treatment Clinician Date S/P MVR S/P MVR Disease Active Univers (mitral (mitral 09-29 ity of valve valve 00:00: [place] repair) repair) 00 Medical Branch S/P TVR S/P TVR Disease Active Univers (tricuspid (tricuspid 09-29 it y of valve valve 00:00: [place] repair) repair) 00 Medical Branch Endocardit Endocardit [...] nivers ia ia 09-04 ity of 00:00: [place] 00 Medical Branch Decreased Decreased Disease Active Uni vers appetite appetite 6-03 ity of 00:00: [address] Branch Seizure Seizure Disease Active Univers 6-03 ity of 00:00: [address] Branch 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- [place] 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 00 [facility] depressive depressive Br anch disorder, disorder, without without psychotic psychotic features features Generalize Generalize Disease Active U nivers d anxiety d anxiety 6 ity of disorder disorder 00:00: [address] Branch Panic Panic Disease Active Univers attacks attacks 6- ity of 00:00: [address] Branch Encounter Encounter Disease Active Uni vers to to 08-28 ity of establish establish 00:00: [facility] care care [address] [place] [address] Branch Hepatic Hepatic Disease Active Univers cirrhosis, cirrhosis, 08-28 it y of unspecifie [place]specifie [place] hepatic 00 Medi yoel cirrhosis cirrhosis Bran ch type, type, unspecifie unspecifie d whether d whether ascites ascites present present E44.1 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 Russo (Drs. Russo and and Liliza Preventza 06/18/2021 06/18/2021 ) ) S/P CABG [...] 3-17 [facility] post-op post-op 00:00: Medical 00 [place] Acute Acute Disease Active [facility] blood loss blood loss 3-17 [facility] kes anemia anemia 00:00: Medical 00 [place] Acute Acute Disease Active [facility] postoperat postoperat 3-17 [place] [facility]es cristela pain cristela pain 00:00: Medica l 00 [place] Acute Acute Disease Active [facility] encephalop encephalop 3-12 [place] [facility] athy athy 00:00: Medical 00 [place] HTN HTN Disease Active [facility] (hypertens (hypertens 3-12 [place] ion), ion), 00:00: Medical chronic chronic 00 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 [facility] (subarachn (subarachn 3-11 [place] [facility] oid oid 00:00: Medical hemorrhage hemorrhage 00 Ce nter ) ) Streptococ Streptococ Disease Active [facility] cus bovis cus bovis 3-07 [facility] s infection infection 00:00: [facility] 00 [place] 06/18/21: 06/18/21: Disease Active [facility] t MV Repair MV Repair 3-06 Luke s & TV & TV 00:00: Medical Repair Repair 00 [place] (Russo) (Russo) Pulmonary Pulmonary Disease Active Uni vers hypertensi hypertensi 2-13 it y of on on 00:00: [place] 00 Medical Branch Acute on Acute on Disease Active Unive rs chronic chronic 2-13 ity of respirator [place] failure 00 [facility] with with Branch hypoxia hypoxia ESRD (end ESRD (end Disease Active Uni vers stage stage 2-12 ity of renal renal 00:00: [place] disease) disease) 00 Medica l on on Branch dialysis dialysis Coronary Coronary Disease Active Unive rs artery artery 2-12 ity of disease disease 00:00: [place] involving involving 00 Medi [place]el [place] Branch coronary coronary artery of artery of [place] heart with heart with angina angina pectoris [...] rs EKG EKG 2-11 ity of 00:00: [place] Medical Branch Chest Chest Disease Active Univers pressure pressure 2-11 ity of 00:00: Medical Branch Chest pain Chest pain Disease Active U nivers 2-11 ity of 00:00: [place] [facility] Postmenopa Postmenopa Disease Active U nivers usal usal 4-20 ity of bleeding bleeding 00:00: [place] [facility] Obesity Obesity Disease Active Univers [...] [facility] Acute Acute Condition 2019-02-19 Mem oria respirator respirator 22:28:00 l y disease y disease Herm ivelisse Condition 02/19/[address] [facility] End-stage Condition 2019-02-19 Memoria renal End-stage 22:28:00 l disease on renal Freddy n hemodialys disease on is hemodialys is Condition 02/19/[address] [facility] Type 2 Type 2 Condition 2019-02-19 Me moria diabetes diabetes 22:28:00 l mellitus mellitus Freddy n Condition 02/19/[address] [facility] End-stage End-stage Problem 2019-02-19 Memoria renal renal 22:28:00 l disease on disease on He rmann hemodialys hemodialys is is Problem 02/19/[address] [facility] Upper Upper Problem 2019-02-19 Memor ia respirator respirator 22:28:00 l y y Juanito infection infection Problem 02/19/[address] [facility] Elevated Elevated Problem 2019-02-19 Memoria troponin troponin 22:28:00 l level level Deary Problem 02/19/[address] [facility] Pacemaker Pacemaker Disease [facility] Wears Wears Disease Active [facility] glasses [facility] Allergies, Adverse Reactions, Alerts Allergy Allergy Status Severity Reaction(s) Onset Inactive Treating Comm ents Source Name Type Date Date Clinician Heparin Propensi Active 2019-0 "won't Methodi ty to 7-[address] adverse 00:00: bleeding" Hospit a reaction 00 l s to drug NO KNOWN Drug Active Univers ALLERGIE Class ity of [facility] NO KNOWN Allergy Active [facility] ALLERGIE S Family History Family Member Diagnosis Comments Start Date Stop Date Source [facility] brother [facility] father [facility] mother [facility] sister [facility] Social History Social Habit Start Date Stop Date Quantity Comments Source History [facility] Alcohol Std Drinks History [facility] Alcohol Binge History SDCT [facility] Alcohol Comment Exposure to 2021-09-19 2021-09-29 Not sure [facility] 00:00:00 14:42:00 [place] Medical (event) Branch Tobacco use and 2020-07-24 2020-07-[address] Felicita kes exposure 00:00:00 00:00:00 [facility] Center Social History 2019-02-19 2019-02-19 [facility] 22:28:00 22:28:00 Alcohol intake 2018-10-27 2018-10-27 [facility] 00:00:00 00:00:00 non-drinker of alcohol (finding) History SDOH 2018-10-26 2018-10-26 [facility] Alcohol Frequency 00:00:00 00:00:00 [birth year] [facility] 00:00:00 00:00:00 Smoking Status Start Date Stop Date Source Unknown if ever smoked Universit y [facility] Never smoked tobacco [facility] Medications Ordered Filled Start Stop Current Ordering Indication Dosage Frequency Signature Comments Components Source Medication Medication Date Date Medication? Clinician (SIG) Name Name atorvastati Yes 40mg Take 40 mg Univers n 40 mg 6-28 by mouth ity of tablet 15:14: at [place] [address] bedtime. Medical Branch atorvastati Yes 40mg Take 40 mg Univers n 40 mg 6-28 by mouth ity of tablet 15:14: at [place] [address] bedtime. Medical Branch atorvastati Yes 40mg Take 40 mg Univers n 40 mg 6-28 by mouth ity of tablet 15:14: at [place] [address] bedtime. Medical Branch atorvastati Yes 40mg Take 40 mg Univers n 40 mg 6-28 by mouth ity of tablet 15:14: at [place] [address] bedtime. Medical Branch atorvastati Yes 40mg Take 40 mg Univers n 40 mg 6-28 by mouth ity of tablet 15:14: at [place] [address] bedtime. Medical Branch atorvastati Yes 40mg Take 40 mg Univers n 40 mg 6-28 by mouth ity of tablet 15:14: at [place] 02 bedtime. Medical Branch atorvastati 2021-0 Yes 40mg Take 40 mg Univers n 40 mg 6-28 by mouth ity of tablet 15:14: at [place] bedtime. Medical Branch atorvastati 2021-0 Yes 40mg Take 40 mg Univers n 40 mg 6-28 by mouth ity of tablet 15:14: at [place] 02 bedtime. Medical Branch clopidogreL 2021-0 Yes [id number] 75mg Take 1 Univers 75 mg 6-28 tablet by ity of tablet 00:00: mouth [place] 00 daily. Medical Branch clopidogreL 2021-0 Yes [id number] 75mg Take 1 Univers 75 mg 6-28 tablet by ity of tablet 00:00: mouth [place] 00 daily. Medical Branch clopidogreL 2021-0 Yes [id number] 75mg Take 1 Univers 75 mg 6-28 tablet by ity of tablet 00:00: mouth [place] 00 daily. Medical Branch clopidogreL 2021-0 Yes [id number] 75mg Take 1 Univers 75 mg 6-28 tablet by ity of tablet 00:00: mouth [place] 00 daily. Medical Branch clopidogreL 2021-0 Yes [id number] 75mg Take 1 Univers 75 mg 6-28 tablet by ity of tablet 00:00: mouth [place] 00 daily. Medical Branch clopidogreL 2021-0 Yes [id number] 75mg Take 1 Univers 75 mg 6-28 tablet by ity of tablet 00:00: mouth [place] 00 daily. Medical Branch clopidogreL 2021-0 Yes [id number] 75mg Take 1 Univers 75 mg 6-28 tablet by ity of tablet 00:00: mouth [place] 00 daily. Medical Branch clopidogreL 2021-0 Yes [id number] 75mg Take 1 Univers 75 mg 6-28 [...] mg by ity of 10:47: mouth 2 [place] 33 (two) Medical times [place] daily. NIFEdipine 2021-0 Yes 10mg Take 10 [...] 33 (two) Medical times Branch daily. NIFEdipine 2-0 Yes 10mg Take 10 [...] mouth 2 [place] 33 (two) Medical times [place] daily. NIFEdipine 0 Yes 10mg Take 10 [...] mouth 2 [place] 33 (two) Medical times [place] daily. NIFEdipine 0 Yes 10mg Take 10 [...] mouth 2 [place] 33 (two) Medical times [place] daily. NIFEdipine 2021-0 Yes 10mg Take 10 [...] mg by ity of 10:47: mouth 2 [place] 33 (two) Medical times [place] daily. NIFEdipine 0 Yes 10mg Take 10 mg U nivers 10 mg 6-03 by mouth 3 ity of capsule 10:47: (three) [place] 33 times Medical daily. Branch levETIRAcet 0 [...] and Tuesday. After dialysis mirtazapine 0 Yes [id number] 15mg Take 1 Univers (REMERON) 6-03 tablet by ity o f 15 mg 00:00: mouth at [place] tablet 00 bedtime. Medical Branch traZODone 2021-0 Yes [id number] 50mg Take 1 Un kecia 50 mg 6-03 tablet by ity of tablet 00:00: mouth at [place] 00 bedtime. Medical Branch mirtazapine 2021-0 Yes [id number] 15mg Take 1 Univers (REMERON) 6-03 tablet by ity o f 15 mg 00:00: mouth at [place] tablet 00 bedtime. Medical Branch traZODone 2021-0 Yes [id number] 50mg Take 1 Un ke[place] 50 mg 6-03 tablet by ity of tablet 00:00: mouth at [place] 00 bedtime. Medical Branch mirtazapine 2021-0 Yes [id number] 15mg Take 1 Univers (REMERON) 6-03 tablet by ity o f 15 mg 00:00: mouth at [place] tablet 00 bedtime. Medical Branch traZODone 2021-0 Yes [id number] 50mg Take 1 Un kecia 50 mg 6-03 tablet by ity of tablet 00:00: mouth at [place] 00 bedtime. Medical Branch mirtazapine 2021-0 Yes [id number] 15mg Take 1 Univers (REMERON) 6-03 tablet by ity o f 15 mg 00:00: mouth at [place] tablet 00 bedtime. Medical Branch traZODone 2021-0 Yes [id number] 50mg Take 1 Un kecia 50 mg 6-03 tablet by ity of tablet 00:00: mouth at [place] 00 bedtime. Medical Branch mirtazapine 2021-0 Yes [id number] 15mg Take 1 Univers (REMERON) 6-03 tablet by ity o f 15 mg 00:00: mouth at [place] tablet 00 bedtime. Medical Branch traZODone 2021-0 Yes [id number] 50mg Take 1 Un [place] 50 mg 6-03 tablet by ity of tablet 00:00: mouth at [place] 00 bedtime. Medical Branch mirtazapine 2021-0 Yes [id number] 15mg Take 1 Univers (REMERON) 6-03 tablet by ity o f 15 mg 00:00: mouth at [place] tablet 00 bedtime. Medical Branch traZODone 2021-0 Yes [id number] 50mg Take 1 Un [place] 50 mg 6-03 tablet by ity of tablet 00:00: mouth at [place] 00 bedtime. Medical Branch mirtazapine 2021-0 Yes [id number] 15mg Take 1 Univers (REMERON) 6-03 tablet by ity o f 15 mg 00:00: mouth at [place] tablet 00 bedtime. Medical Branch traZODone 2021-0 Yes [id number] 50mg Take 1 Un [place] 50 mg 6-03 tablet by ity of tablet 00:00: mouth at [place] 00 bedtime. Medical Branch mirtazapine 2-0 Yes [id number] 15mg Take 1 Univers (REMERON) 6-03 tablet by ity o f 15 mg 00:00: mouth at [place] [address] bedtime. Medical Branch traZODone 2-0 Yes [id number] 50mg Take 1 Un [place] 50 mg 6-03 tablet by ity of tablet 00:00: mouth at [place] [address] bedtime. Medical Branch amoxicillin 2-0 Yes 500mg Take 500 U nivers 500 mg 5-24 mg by ity of capsule 00:00: mouth. [place] [address] Medical Branch amoxicillin 2-0 Yes 500mg Take 500 U nivers 500 mg 5-24 mg by ity of capsule 00:00: mouth. [place] [address] Medical Branch amoxicillin 2-0 Yes 500mg Take 500 U nivers 500 mg 5-24 mg by ity of capsule 00:00: mouth. [place] [address] Medical Branch amoxicillin 2-0 Yes 500mg Take 500 U nivers 500 mg 5-24 mg by ity of capsule 00:00: mouth. [place] [address] Medical Branch amoxicillin 2-0 Yes 500mg Take 500 U nivers 500 mg 5-24 mg by ity of capsule 00:00: mouth. [place] [address] Medical Branch amoxicillin 2-0 Yes 500mg Take 500 U nivers 500 mg 5-24 mg by ity of capsule 00:00: mouth. [place] [address] Medical Branch amoxicillin 2-0 Yes 500mg Take 500 U nivers 500 mg 5-24 mg by ity of capsule 00:00: mouth. [place] [address] Medical Branch amoxicillin 2-0 Yes 500mg Take 500 U nivers 500 mg 5-24 mg by ity of capsule 00:00: mouth. [place] [address] Medical Branch hydrALAZINE 2-0 Yes 50mg Take 50 mg Univers 50 mg 4-08 by mouth. ity of tablet 00:00: [place] [facility] hydrALAZINE 2-0 Yes 50mg Take 50 mg Univers 50 mg 4-08 by mouth. ity of tablet 00:00: [place] Medical [facility] hydrALAZINE 2-0 Yes 50mg Take 50 mg Univers 50 mg 4-08 by mouth. ity of tablet 00:00: [place] Medical Branch hydrALAZINE 2-0 Yes 50mg Take 50 mg Univers 50 mg 4-08 by mouth. ity of tablet 00:00: [place] 00 Medical Branch hydrALAZINE 2021-0 Yes 50mg Take 50 mg Univers 50 mg 4-08 by mouth. ity of tablet 00:00: Medical Branch hydrALAZINE 2021-0 Yes 50mg Take 50 mg Univers 50 mg 4-08 by mouth. ity of tablet 00:00: Medical Branch hydrALAZINE 2021-0 Yes 50mg Take 50 mg Univers 50 mg 4-08 by mouth. ity of tablet 00:00: Medical Branch hydrALAZINE 2021-0 Yes 50mg Take 50 mg Univers 50 mg 4-08 by mouth. ity of tablet 00:00: Medical Branch aspirin 81 2021-0 2021- No [id number] 81mg Take 1 Univers mg chewable 4- tablet by it y of tablet 00:00: 04:59 mouth [place] 00 :00 daily for Medical 90 days. Branch clopidogreL 2021-0 2021- No [id number] 75mg Take 1 Univers 75 mg 07-10 tablet by ity of tablet 00:00: 00:00 mouth [place] 00 :00 daily. Medical Branch levETIRAcet 2021-0 2021- No 250mg Take [address] am (KEPPRA) 07-06 tablet [facility] 250 MG 00:00: 23:59 (250 mg Medical tablet 00 :00 total) by Center mouth 3 (three) times a week after dialysis TUE/ I for 60 days. levETIRAcet 2021-0 2021- No 250mg Take [address] am (KEPPRA) 07-06 tablet [facility] 250 MG 00:00: 23:59 (250 [...] I St am (KEPPRA) 07-06 tablet [facility] 250 MG 00:00: 23:59 (250 mg Medical tablet 00 :00 total) by Center mouth 3 (three) times a week after dialysis I for 60 days. levETIRAcet 2021- No 250mg Take [address] am (KEPPRA) -07 08-03 tablet [facility] 250 MG 00:00: 23:59 (250 mg Medical tablet 00 :00 total) by Center mouth 3 (three) times a week after dialysis I for 60 days. multivitami Yes 1{tbl} QD Take [address] n with 4-02 tablet by [facility] minerals 14:35: mouth Medical tablet 35 daily. Center sucroferric Yes 500mg Q.[id number] Take [address] oxyhydroxid 4-02 [id number] mg by L ukes e 500 mg 14:35: 3D mouth 3 Medica l Chew 35 (three) Center times daily. multivitami Yes 1{tbl} QD Take [address] n with 4-02 tablet by [facility] minerals 14:35: mouth Medical tablet 35 daily. [place] sucroferric Yes 500mg Q.[id number] Take [address] oxyhydroxid 4-02 [id number] mg by L ukes e 500 mg 14:35: 3D mouth 3 Medica l Chew 35 (three) Center times daily. multivitami Yes 1{tbl} QD Take [address] n with 4-02 tablet by [facility] minerals 14:35: mouth Medical tablet 35 daily. Center sucroferric Yes 500mg Q.[id number] Take [address] oxyhydroxid 4-02 [id number] mg by L ukes e 500 mg 14:35: 3D mouth 3 Medica l Chew 35 (three) Center times daily. multivitami Yes 1{tbl} QD Take [address] n with 4-02 tablet by [facility] minerals 14:35: mouth Medical tablet 35 daily. Center sucroferric Yes 500mg Q.[id number] Take [address] oxyhydroxid 4-02 [id number] mg by L ukes e 500 mg 14:35: 3D mouth 3 Medica l Chew 35 (three) Center times daily. multivitami Yes 1{tbl} QD Take [address] n with - tablet by [facility] minerals 14:35: mouth Medical tablet 35 daily. Center sucroferric Yes 500mg Q.[id number] Take [address] oxyhydroxid 07-04 [id number] mg by L ukes e 500 mg [...] :00 Center tablet hydrALAZINE 2021- No 50mg Q.[id number] Take [address] [facility] (APRESOLINE 07-04 [id number] by mouth 3 [facility] ) 50 MG [...] :00 Center tablet hydrALAZINE 2021- No 50mg Q.[id number] Take [address] [address] (APRESOLINE 07-04 [id number] by mouth 3 [facility] ) 50 MG 11:07: 00:00 3D (three) Medica l tablet 35 :00 times Center daily. lisinopriL No 5mg QD Take [address] (PRINIVIL,Z 07-04 by mouth Ned es ESTRIL) 5 11:07: 00:00 daily. Medic al MG tablet 35 :00 [place] aspirin 81 2021- No 81mg QD Take [...] 11:07: 00:00 daily. Medical tablet 35 :00 [place] isosorbide No 30mg QD Take [address] mononitrate 07-04 by mouth Ned es (IMDUR) 30 11:07: 00:00 daily. Medi yoel MG 24 hr 35 :00 Center tablet clopidogreL No 75mg QD Take [address] (PLAVIX) 75 07-04 by mouth Ned es mg tablet 11:07: 00:00 daily. Medic al 35 :00 [place] NIFEdipine 2021- No 60mg QD Take [address] [facility] (PROCARDIA- 07-04 by mouth Ned es XL) 60 MG 11:07: 00:00 daily. Medic al (OSM) 24 hr 35 :00 Center tablet hydrALAZINE 2021- No 50mg Q.[id number] Take [address] [facility] (APRESOLINE 07-04 [id number] by mouth 3 [facility] ) 50 MG [...] times daily with breakfast and dinner. atorvastati 40mg QD Take [address] [...] daily. Medic al 35 :00 Center NIFEdipine 60mg QD Take [address] [facility] [address] (PROCARDIA- 07-04 by mouth Ned es XL) 60 MG 11:07: 00:00 daily. Medic al (OSM) 24 hr 35 :00 Center tablet hydrALAZINE 50mg Q.[id number] Take [address] (APRESOLINE 07-04 [id number] by mouth 3 [facility] ) 50 MG [...] 11:07: 00:00 daily. Medic al 35 :00 [place] NIFEdipine No 60mg QD Take [address] (PROCARDIA- 07-04 by mouth Ned es XL) 60 MG 11:07: 00:00 daily. Medic al (OSM) 24 hr 35 :00 Center tablet hydrALAZINE No 50mg Q.[id number] Take [address] [facility] (APRESOLINE 07-04 [id number] by mouth 3 [facility] ) 50 MG [...] 10 MG 00:00: 23:59 mg total) Medi oyel tablet 00 :00 by mouth Center every [...] Center mouth nightly for 60 days. atorvastati 2021-2021- No 40mg QD Take [address] [...] :00 Center R) 100 unit/mL injection insulin 2021-0 2021- No Use as [facility] regular 07-04 directed. [facility] (HumuLIN 00:00: 00:00 Medical R,NovoLIN 00 :00 Center R) 100 unit/mL injection insulin 2021-0 2021- No Use as [facility] regular -07-04 directed. [facility] (HumuLIN 00:00: 00:00 Medical R,NovoLIN 00 :00 Center R) 100 unit/mL injection insulin 2021-0 2021- No Use as [facility] regular 07-04 directed. [facility] (HumuLIN 00:00: 00:00 Medical R,NovoLIN 00 :00 Center R) 100 unit/mL injection insulin 2021-0 2021- No Use as [facility] regular 07-04 directed. [facility] (HumuLIN 00:00: 00:00 Medical R,NovoLIN 00 :00 Center R) 100 unit/mL injection insulin 2021-0 2021- No Use as [facility] regular 07-04 directed. [facility] (HumuLIN 00:00: 00:00 Medical R,NovoLIN 00 :00 Center R) 100 unit/mL injection insulin 2021-0 2021- No Use as [facility] regular 07-04 directed. [facility] (HumuLIN 00:00: 00:00 Medical R,NovoLIN 00 :00 Center R) 100 unit/mL injection insulin 2021-0 2021- No Use as [facility] regular 07-04 directed. [facility] (HumuLIN 00:00: 00:00 Medical R,NovoLIN 00 :00 Center R) 100 unit/mL injection atorvastati 0 Yes 40mg QD Take [address] n (LIPITOR) 4-01 by mouth Luke s 40 MG 13:18: daily. Medical tablet 59 Center isosorbide 0 Yes 30mg QD Take [address] mononitrate 4-01 by mouth Luke s (IMDUR) 30 13:18: daily. Medic al MG 24 hr 59 Center tablet clopidogreL 0 Yes 75mg QD Take [address] [address] (PLAVIX) 75 4-01 by mouth Luke s mg tablet 13:18: daily. Medica l 59 Center NIFEdipine 2022-0 Yes 60mg QD Take [address] (PROCARDIA- 4-01 by mouth Luke s XL) 60 MG 13:18: daily. Medica l (OSM) 24 hr 59 Center tablet hydrALAZINE 0 Yes 50mg Q.[id number] Take [address] (APRESOLINE 4-01 [id number] by mouth 3 [facility] ) 50 MG [...] MG tablet 59 Center sucroferric Yes 500mg Q.[id number] Take [address] oxyhydroxid 4- [id number] mg by L ukes e 500 mg [...] hr 15 Center tablet hydrALAZINE Yes 50mg Q.[id number] Take [address] (APRESOLINE 3-30 [id number] by mouth 3 [facility] ) 50 MG [...] tablet 15 Center sucroferric 0 Yes 500mg Q.[id number] Take [address] oxyhydroxid 3-30 [id number] mg by L ukes e 500 mg [...] 15 Center tablet hydrALAZINE 0 Yes 50mg Q.[id number] Take [address] (APRESOLINE 3-30 [id number] by mouth 3 [facility] ) 50 MG [...] tablet 15 Center sucroferric 0 Yes 500mg Q.[id number] Take [address] oxyhydroxid 3-30 [id number] mg by L ukes e 500 mg [...] 18 Center tablet hydrALAZINE 0 Yes 50mg Q.[id number] Take [address] (APRESOLINE 3-30 [id number] by mouth 3 [facility] ) 50 MG [...] 08:40: daily. Medica l MG tablet 18 [place] sucroferric Yes 500mg Q.[id number] Take [address] [facility] oxyhydroxid 3-30 [id number] mg by L ukes e 500 mg [...] hr 01 Center tablet hydrALAZINE Yes 50mg Q.[id number] Take [address] [facility] (APRESOLINE 3-28 [id number] by mouth 3 [facility] ) 50 MG [...] MG tablet 01 Center sucroferric Yes 500mg Q.[id number] Take [address] [facility] [address] oxyhydroxid 3-28 [id number] mg by L ukes e 500 mg [...] hr 22 Center tablet hydrALAZINE Yes 50mg Q.[id number] Take [address] [facility] (APRESOLINE 3-28 [id number] by mouth 3 [facility] ) 50 MG [...] MG tablet 22 Center sucroferric Yes 500mg Q.[id number] Take [address] oxyhydroxid 3-28 [id number] mg by L ukes e 500 mg [...] hr 49 Center tablet hydrALAZINE Yes 50mg Q.[id number] Take [address] [facility] (APRESOLINE 3-25 [id number] by mouth 3 [facility] ) 50 MG [...] tablet 49 Center sucroferric 0 Yes 500mg Q.[id number] Take [address] oxyhydroxid 3-25 [id number] mg by L ukes e 500 mg [...] 15 Center tablet hydrALAZINE 0 Yes 50mg Q.26391821 Take [address] [facility] (APRESOLINE 3-20 [id number] by mouth 3 [facility] ) 50 MG [...] MG tablet 15 Center sucroferric Yes 500mg Q.[id number] Take [address] oxyhydroxid 3-20 [id number] mg by L ukes e 500 mg [...] mg tablet 18:09: daily. Medica l 15 [place] NIFEdipine Yes 60mg QD Take [address] (PROCARDIA- 3-20 by mouth Luke s XL) 60 MG 18:09: daily. Medica l (OSM) 24 hr 15 Center tablet hydrALAZINE Yes 50mg Q.14759635 Take [address] [facility] (APRESOLINE 3-20 [id number] by mouth 3 [facility] ) 50 MG 18:09: 3D (three) Medical tablet 15 times Center daily. multivitami Yes 1{tbl} QD Take [address] [facility] with 3-20 tablet by [facility] minerals 18:09: mouth Medical tablet 15 daily. [place] lisinopriL Yes 5mg QD Take [address] (PRINIVIL,Z 3-20 by mouth Luke s ESTRIL) 5 18:09: daily. Medica l MG tablet 15 [place] sucroferric Yes 500mg Q.[id number] Take [address] oxyhydroxid 3-20 [id number] mg by L ukes e 500 mg 18:09: 3D mouth 3 Medica l Chew 15 (three) Center times daily. atorvastati Yes 40mg QD Take [address] [facility] n (LIPITOR) 3-20 by mouth Luke s 40 MG 18:09: daily. Medical tablet 15 [place] aspirin 81 Yes 81mg QD Take [address] MG EC 3-07 by mouth [facility] tablet 04:45: daily. [address] carvediloL Yes 12.5mg Take 12.[address] [facility] (COREG) 3-07 mg by [facility] 12.5 MG 04:45: mouth 2 Medical tablet 04 (two) Center times daily with breakfast and dinner. aspirin 81 0 Yes 81mg QD Take [address] MG EC 3-07 by mouth [facility] tablet 04:45: daily. [address] carvediloL Yes 12.5mg Take 12.[address] [facility] (COREG) 3-07 mg by [facility] 12.5 MG 04:45: mouth 2 Medical tablet 04 (two) Center times daily with breakfast and dinner. aspirin 81 2021-0 Yes 81mg QD Take [address] MG EC 3-07 by mouth [facility] tablet 04:45: daily. [address] carvediloL 2021-0 Yes 12.5mg Take 12.[address] (COREG) 3-07 mg by [facility] 12.5 MG 04:45: mouth 2 Medical tablet 04 (two) Center times daily with breakfast and dinner. aspirin 81 2021-0 Yes 81mg QD Take [address] MG EC 3-07 by mouth [facility] tablet 04:45: daily. [address] carvediloL 0 Yes 12.5mg Take 12.[address] [address] (COREG) 3-07 mg by [facility] 12.5 MG 04:45: mouth 2 Medical tablet 04 (two) Center times daily with breakfast and dinner. aspirin 81 2021-0 Yes 81mg QD Take [address] MG EC 3-07 by mouth [facility] tablet 04:45: daily. [address] carvediloL 0 Yes 12.5mg Take 12.[address] [address] (COREG) 3-07 mg by [facility] 12.5 MG 04:45: mouth 2 Medical tablet 04 (two) Center times daily with breakfast and dinner. aspirin 81 2021-0 Yes 81mg QD Take [address] MG EC 3-07 by mouth [facility] tablet 04:45: daily. [address] carvediloL 0 Yes 12.5mg Take 12.[address] [address] (COREG) 3-07 mg by [facility] 12.5 MG 04:45: mouth 2 Medical tablet 04 (two) Center times daily with breakfast and dinner. aspirin 81 2021-0 Yes 81mg QD Take [address] MG EC 3-07 by mouth [facility] tablet 04:45: daily. [address] carvediloL 0 Yes 12.5mg Take 12.[address] [address] (COREG) 3-07 mg by [facility] 12.5 MG 04:45: mouth 2 Medical tablet 04 (two) Center times daily with breakfast and dinner. aspirin 81 2021-0 Yes 81mg QD Take [address] MG EC 3-07 by mouth [facility] tablet 04:45: daily. [address] carvediloL 0 Yes 12.5mg Take 12.[address] [address] (COREG) 3-07 mg by [facility] 12.5 MG 04:45: mouth 2 Medical tablet 04 (two) Center times daily with breakfast and dinner. aspirin 81 Yes 81mg QD Take [address] MG EC 3-07 by mouth [facility] tablet 04:45: daily. [facility] 04 Center carvediloL Yes 12.5mg Take 12.[address] (COREG) 3-07 mg by [facility] 12.5 MG 04:45: mouth 2 Medical tablet 04 (two) Center times daily with breakfast and dinner. aspirin 81 2021- No [id number] 81mg Take 1 Univers mg chewable 05-23 tablet by it y of tablet 00:00: 04:59 mouth [place] 00 :00 daily for Medical 30 days. Branch clopidogreL 2021- No [id number] 75mg Take 1 Univers 75 mg 05-23 tablet by ity of tablet 00:00: 04:59 mouth [place] 00 :00 daily for Medical 30 days. Branch isosorbide 2021- No [id number] 30mg Take 1 Univers mononitrate 05-23 tablet by it y of 30 mg 24 hr 00:00: 04:59 [place] tablet 00 :00 daily for Medical 30 days. Branch lisinopriL 2021- No [id number] 5mg Take 1 Univers 5 mg tablet 05-23 tablet by it y of 00:00: 04:59 mouth [place] 00 :00 daily for Medical 30 days. Branch vitamin b 2021- No [id number] 1{tbl} Take 1 Univers complex-vit 05-23 tablet by it y of miller 00:00: 04:59 mouth [place] c-folic 00 :00 daily for Medical acid 0.8 mg 30 days. Bran ch tablet aspirin 81 2021- No [id number] 81mg Take 1 Univers mg chewable 05-23 tablet by it y of tablet 00:00: 04:59 mouth [place] 00 :00 daily for Medical 30 days. Branch clopidogreL 2021- No [id number] 75mg Take 1 Univers 75 mg 05-23 tablet by ity of tablet 00:00: 04:59 mouth [place] 00 :00 daily for Medical 30 days. Branch isosorbide 2021- No [id number] 30mg Take 1 Univers mononitrate 05-23 tablet by it y of 30 mg 24 hr 00:00: 04:59 [place] tablet 00 :00 daily for Medical 30 days. Branch lisinopriL 2021- No [id number] 5mg Take 1 Univers 5 mg tablet 05-23 tablet by it y of 00:00: 04:59 mouth [place] 00 :00 daily for Medical 30 days. Branch vitamin b 2021- No [id number] 1{tbl} Take 1 Univers complex-vit 05-23 tablet by it y of miller 00:00: 04:59 mouth [place] c-folic 00 :00 daily for Medical acid 0.8 mg 30 days. Bran ch tablet aspirin 81 2021- No [id number] 81mg Take 1 Univers mg chewable 05-23 tablet by it y of tablet 00:00: 04:59 mouth [place] 00 :00 daily for Medical 30 days. Branch clopidogreL 2021- No [id number] 75mg Take 1 Univers 75 mg 05-23 tablet by ity of tablet 00:00: 04:59 mouth [place] 00 :00 daily for Medical 30 days. Branch isosorbide 2021- No [id number] 30mg Take 1 Univers mononitrate 05-23 tablet by it y of 30 mg 24 hr 00:00: 04:59 [place] tablet 00 :00 daily for Medical 30 days. Branch lisinopriL 2021- No [id number] 5mg Take 1 Univers 5 mg tablet 05-23 tablet by it y of 00:00: 04:59 mouth [place] 00 :00 daily for Medical 30 days. Branch vitamin b 2021- No [id number] 1{tbl} Take 1 Univers complex-vit 05-23 tablet [...] 2-18 02-18 mouth. ity of 17:12: 00:00 [place] 42 :00 Medical Branch aspirin 81 0 2021- No 81mg Take 81 mg Univers mg chewable -18 18 by mouth ity of tablet 17:12: 00:00 daily. [place] 42 :00 Medical Branch nitroglycer [id number] 1 Univers in 0.4 mg 2-18 tablet ity of sublingual 00:00: under the [place] tablet 00 tongue Medical every 5 Branch (five) minutes as needed for Chest pain. nitroglycer [id number] 1 Univers in 0.4 mg 2-18 tablet ity of sublingual 00:00: under the [place] tablet 00 tongue Medical every 5 Branch (five) minutes as needed for Chest pain. nitroglycer [id number] 1 Univers in 0.4 mg 2-18 tablet ity of sublingual 00:00: under the [place] tablet 00 tongue Medical every 5 Branch (five) minutes as needed for Chest pain. atorvastati 0 2021- No [id number] 40mg Take 1 Univers n 40 mg 2-18 03-21 tablet by ity of tablet 00:00: 04:59 mouth at [place] 00 :00 bedtime Medical for 30 Branch days. carvediloL 2021- No [id number] 6.25mg Take 1 Univers 6.25 mg 2-18 -21 tablet by ity of tablet 00:00: 04:59 mouth 2 [place] 00 :00 (two) Medical times Branch daily with meals for 30 days. NIFEdipine 2021- No [id number] 60mg Take 1 Univers ER 60 mg 2-18 -21 tablet by ity o f tablet 00:00: 04:59 mouth 2 [place] 00 :00 ([facility]) Medical times Branch daily for 30 days. atorvastati 2021- No [id number] 40mg Take 1 Univers n 40 mg 2-18 -21 tablet by ity of tablet 00:00: 04:59 mouth at [place] 00 :00 bedtime Medical for 30 Branch days. carvediloL 2021- No [id number] 6.25mg Take 1 Univers 6.25 mg 2-18 -21 tablet by ity of tablet 00:00: 04:59 mouth 2 [place] 00 :00 ([facility]) Medical times Branch daily with meals for 30 days. NIFEdipine 2021- No [id number] 60mg Take 1 Univers ER 60 mg 2-18 - tablet by ity o f tablet 00:00: 04:59 mouth 2 [place] 00 :00 ([facility]) Medical times Branch daily for 30 days. atorvastati 2021- No [id number] 40mg Take 1 Univers n 40 mg 2-18 -21 tablet by ity of tablet 00:00: 04:59 mouth at [place] 00 :00 bedtime Medical for 30 Branch days. carvediloL 2021- No [id number] 6.25mg Take 1 Univers 6.25 mg 2-18 -21 tablet by ity of tablet 00:00: 04:59 mouth 2 [place] 00 :00 (two) Medical times Branch daily with meals for 30 days. NIFEdipine 2021- No [id number] 60mg Take 1 Univers ER 60 mg 2-18 -21 tablet by ity o f tablet 00:00: 04:59 mouth 2 [place] 00 :00 (two) Medical times Branch daily for 30 days. clopidogreL Yes 75mg 75 mg, Univ ers (PLAVIX) 2-17 Oral, ity of tablet 75 15:00: DAILY, [place] mg 00 First dose Medical (after Branch last modificati on) on [facility] 05/21/21 at 0900, Until Discontinu ed, Routine morpHINE 2021- No 2mg 2 mg, Slow Un [place] injection 2 05-21 IV Push, ity of mg 13:30: 12:29 ONCE, 1 [place] 00 :00 dose, On Medical [facility] Branch 05/21/21 at 0730, Routine HYDROcodone [...] Until Discontinu ed, Routine vitamin b Yes [id number] 1{tbl} 1 tablet, Univers complex-vit 2-16 Oral, [...] 0900, Until Discontinu ed, Routine atorvastati Yes [id number] 40mg 40 mg, Univers n (LIPITOR) 2-16 Oral, QHS, it y of tablet 40 03:00: First dose [place] mg 00 on [facility] 05/19/21 at Branch 2100, Until Discontinu ed, Routine NIFEdipine 0 Yes [id number] 60mg 60 mg, U nivers ER tablet 2-16 Oral, BID, ity of 60 mg 02:00: First dose [place] 00 (after Medical last Branch modificati on) on Tue05/19/21 at 2000, Until Discontinu ed, Routine lisinopriL 0 Yes [id number] 5mg 5 mg, Un [facility] (PRINIVIL,Z 2-15 Oral, ity of ESTRIL) 20:45: DAILY, [place] tablet 5 mg 00 First dose Me dical on Tue Branch 05/19/21 at 1445, Until Discontinu ed, Routine traMADoL 0 Yes 50mg 50 mg, Univers (ULTRAM) 2-12 Oral, ity of tablet 50 21:59: Q6HPRN, [place] mg 37 Starting Medical on [facility] 05/16/21 at 1559, Until Discontinu ed, Routine, Pain (scale 4-6) aspirin 0 Yes 81mg 81 mg, Univers chewable 2-12 Oral, ity of tablet 81 15:00: DAILY, [place] mg 00 First dose Medical on [facility] Branch 05/16/21 at 0900, Until Discontinu ed, Routine NIFEdipine 2021- No 60mg 60 mg, Univ ers ER tablet 2-12 02-15 Oral, ity of 60 mg 15:00: 20:33 DAILY, [place] 00 :49 First dose Medical on [facility] 05/16/21 at 0900, Until Discontinu ed, Routine Sliding 0 Yes Subcutaneo Univ ers Scale 2-12 us, AC, ity of Insulin-Reg 13:30: First dose [place] ular + Fsbg 00 on [facility] Medica l Testing 05/16/21 at Branch [...] [place] 5[place]000 Units 00 us, Q8H, [facility] First dose Branch on Tue05/15/21 at 2200, Until Discontinu ed, Routine carvediloL 0 Yes 6.25mg 6.25 mg, U nivers (COREG) 2-12 Oral, BID ity of tablet 6.25 01:00: MEALS, [place] mg 00 First dose Medical on Fri Branch 05/15/21 at 1900, Until Discontinu ed, Routine
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 : NEIL THOMAS [...] IV Push, ity of (PF)) 00:56: Q6HPRN, [place] injection 4 53 Starting Medi yoel mg on Fri Branch 05/15/21 at 1856, Until Discontinu ed, Routine, Nausea and Vomiting (N/V) acetaminoph Yes 650mg 650 mg, Un kecia en 2-12 Oral, ity of (TYLENOL) 00:56: Q6HPRN, [place] tablet 650 38 Starting Medic al mg [...] 05/15/21 at 1730, STAT iopamidol 2021- No [id number] 100mL 100 mL, Univers (ISOVUE 05-15 Intravenou ity o f 370-500 mL) 22:00: 22:00 s, ONCE, 1 [place] injection 00 :00 dose, On Medica l 100 mL Fri Branch 05/15/21 at 1600, Routine aspirin 81 Yes 81mg QD Take [address] MG EC 5-27 by mouth [facility] tablet 15:07: daily. [address] carvediloL Yes 12.5mg Take 12.[address] (COREG) 5-27 mg by [facility] 12.5 MG 15:07: mouth 2 Medical tablet 20 (two) Center times daily with breakfast and dinner. aspirin 81 0 Yes 81mg QD Take [address] MG EC 5-27 by mouth [facility] tablet 15:07: daily. [address] carvediloL Yes 12.5mg Take 12.5 [facility] [...] a e 1-17 l 19:15: ergocalcife Yes [id number] Q7D Take Meth ale rol 7-25 50,000 [...] hr 42 l tablet ergocalcife 2019-0 Yes [id number] Q7D Take Meth ale rol 7-25 50,000 [...] hr 42 l tablet ergocalcife 2019-0 Yes [id number] Q7D Take Meth ale rol 7-25 50,000 [...] hr 42 l tablet ergocalcife 2019-0 Yes [id number] Q7D Take Meth ale rol 7-25 50,000 [...] hr 42 l tablet ergocalcife 2019-0 Yes [id number] Q7D Take Meth ale rol 7-25 50,000 st (VITAMIN 15:19: Units by Hospi ta D2) 50,000 42 mouth once l unit a week. capsule multivitami 2019-0 Yes 1{tbl} QD Take 1 Me thodi n 7-[address] (DAILY-LARON 15:19: mouth Hospi ta ORAL) 42 daily. l ergocalcife 2019-0 Yes [id number] Q7D Take Meth ale rol 7-25 50,000 [...] Hospita tablet 42 l ergocalcife 2019-0 Yes [id number] Q7D Take Meth ale rol 7-25 50,000 [...] hr 42 l tablet ergocalcife 2019-0 Yes [id number] Q7D Take Meth ale rol 7-25 50,000 [...] hr 42 l tablet ergocalcife 2019-0 Yes [id number] Q7D Take Meth ale rol 7-25 50,000 [...] hr 42 l tablet ergocalcife 2019-0 Yes [id number] Q7D Take Meth ale rol 7-25 50,000 [...] hr 42 l tablet ergocalcife 2019-0 Yes [id number] Q7D Take Meth ale rol 7-25 50,000 [...] hr 42 l tablet ergocalcife 2019-0 Yes [id number] Q7D Take Meth ale rol 7-25 50,000 [...] hr 42 l tablet ergocalcife 2019-0 Yes [id number] Q7D Take Meth ale rol 7-25 50,000 [...] hr 42 l tablet ergocalcife 2019-0 Yes [id number] Q7D Take Meth ale rol 7-25 50,000 [...] hr 42 l tablet ergocalcife 2019-0 Yes [id number] Q7D Take Meth ale rol 7-25 50,000 [...] hr 42 l tablet ergocalcife 2019-0 Yes [id number] Q7D Take Meth ale rol 7-25 50,000 [...] hr 42 l tablet ergocalcife 2019-0 Yes [id number] Q7D Take Meth ale rol 7-25 50,000 [...] hr 42 l tablet ergocalcife 2019-0 Yes [id number] Q7D Take Meth ale rol 7-25 50,000 [...] Memoria n Calcium 7-10 Paul l 00:00: [place] Metoprolol 0 Yes Salman TWICE Dickson kulwinder Tartrate 7-10 Paul DAILY l 00:00: [place] Losartan 2019-0 Yes [place]man DAILY Memori a [...] 7-[address] mg tablet 00:00: Hospita l aspirin 2019-0 Yes [facility] (ECOTRIN) 7-10 st 81 MG 00:00: Hospita enteric 00 l coated tablet furosemide 2019-0 Yes Take by Meth ale (LASIX) 40 7-[address] mg tablet 00:00: Hospita l aspirin 2019-0 Yes [facility] (ECOTRIN) 7-10 st 81 MG 00:00: Hospita enteric 00 l coated tablet furosemide 2019-0 Yes Take by Meth ale (LASIX) 40 7-[address] mg tablet 00:00: Hospita l aspirin 2019-0 Yes [facility] (ECOTRIN) 7-10 st 81 MG 00:00: Hospita enteric 00 l coated tablet furosemide 2019-0 Yes Take by Meth ale (LASIX) 40 7-[address] mg tablet 00:00: Hospita l aspirin 2019-0 Yes [facility] (ECOTRIN) 7-10 [...] 7-[address] mg tablet 00:00: Hospita l aspirin 2019-0 Yes [facility] (ECOTRIN) 7-10 [...] Carbonate 7-09 TIMES A l 00:00: DAY [place] 00 hydrALAZINE 2019-0 Yes 1{tbl} Take 1 Me [...] Dose 2021-02-02 Completed Unive rsity of 00:00:00 [facility] Influenza High Dose 2021-02-02 Completed Unive rsity of 00:00:00 [facility] Influenza High Dose 2021-02-02 Completed Unive rsity of 00:00:00 [facility] Influenza High Dose 2021-02-02 Completed Unive rsity of 00:00:00 [facility] Influenza High Dose 2021-02-02 Completed Unive rsity of 00:00:00 [facility] Influenza High Dose 2021-02-02 Completed Unive rsity of 00:00:00 [facility] Influenza High Dose 2021-02-02 Completed Unive rsity of 00:00:00 [facility] Influenza High Dose 2021-02-02 Completed Unive rsity of 00:00:00 [facility] SARS-COV-2 COVID-19 2020-07-30 Completed Unive rsity of PFIZER VACCINE 00:00:00 [facility] SARS-COV-2 COVID-19 2020-07-30 Completed Unive rsity of PFIZER VACCINE 00:00:00 [facility] SARS-COV-2 COVID-19 2020-07-30 Completed Unive rsity of PFIZER VACCINE 00:00:00 [facility] SARS-COV-2 COVID-19 2020-07-30 Completed Unive rsity of PFIZER VACCINE 00:00:00 [facility] SARS-COV-2 COVID-19 2020-07-30 Completed Unive rsity of PFIZER VACCINE 00:00:00 [facility] SARS-COV-2 COVID-19 2020-07-30 Completed Unive rsity of PFIZER VACCINE 00:00:00 [facility] SARS-COV-2 COVID-19 2020-07-30 Completed Unive rsity of PFIZER VACCINE 00:00:00 [facility] SARS-COV-2 COVID-19 2020-07-30 Completed Unive rsity of PFIZER VACCINE 00:00:00 [facility] SARS-COV-2 COVID-19 2020-07-11 Completed Unive rsity of PFIZER VACCINE 00:00:00 [facility] SARS-COV-2 COVID-19 2020-07-11 Completed Unive rsity of PFIZER VACCINE 00:00:00 [facility] SARS-COV-2 COVID-19 2020-07-11 Completed Unive rsity of PFIZER VACCINE 00:00:00 [facility] SARS-COV-2 COVID-19 2020-07-11 Completed Unive rsity of PFIZER VACCINE 00:00:00 [facility] SARS-COV-2 COVID-19 2020-07-11 Completed Unive rsity of PFIZER VACCINE 00:00:00 [facility] SARS-COV-2 COVID-19 2020-07-11 Completed Unive rsity of PFIZER VACCINE 00:00:00 [facility] SARS-COV-2 COVID-19 2020-07-11 Completed Unive rsity of PFIZER VACCINE 00:00:00 [facility] SARS-COV-2 COVID-19 2020-07-11 Completed Unive rsity of PFIZER VACCINE 00:00:00 [facility] PPD (TB) 2018-03-20 Completed University of 00:00:00 [facility] PPD (TB) 2018-03-20 Completed University of 00:00:00 [facility] PPD (TB) 2018-03-20 Completed University of 00:00:00 [facility] PPD (TB) 2018-03-20 Completed University of 00:00:00 [facility] PPD (TB) 2018-03-20 Completed University of 00:00:00 [facility] PPD (TB) 2018-03-20 Completed University of 00:00:00 [facility] PPD (TB) 2018-03-20 Completed University of 00:00:00 [facility] PPD (TB) 2018-03-20 Completed University of 00:00:00 [facility] Influenza Virus 2018-01-20 Completed Universit y of Vaccine - Whole 00:00:00 [facility] Influenza Virus 2018-01-20 Completed Universit y of Vaccine - Whole 00:00:00 [facility] Influenza Virus 2018-01-20 Completed Universit y of Vaccine - Whole 00:00:00 [facility] Influenza Virus 2018-01-20 Completed Universit y of Vaccine - Whole 00:00:00 [facility] Influenza Virus 2018-01-20 Completed Universit y of Vaccine - Whole 00:00:00 [facility] Influenza Virus 2018-01-20 Completed Universit y of Vaccine - Whole 00:00:00 [facility] Influenza Virus 2018-01-20 Completed Universit y of Vaccine - Whole 00:00:00 [facility] Influenza Virus 2018-01-20 Completed Universit y of Vaccine - Whole 00:00:00 [facility] Pneumococcal 2014-08-02 Completed University o f Polysaccharide, 00:00:00 [facility] PPSV23 (PNEUMOVAX) Branch Pneumococcal 2014-08-02 Completed University o f Polysaccharide, 00:00:00 [facility] ical PPSV23 (PNEUMOVAX) Branch Pneumococcal 2014-08-02 Completed University o f Polysaccharide, 00:00:00 [facility] ical PPSV23 (PNEUMOVAX) Branch Pneumococcal 2014-08-02 Completed University o f Polysaccharide, 00:00:00 [facility] ical PPSV23 (PNEUMOVAX) Branch Pneumococcal 2014-08-02 Completed University o f Polysaccharide, 00:00:00 [facility] ical PPSV23 (PNEUMOVAX) Branch Pneumococcal 2014-08-02 Completed University o f Polysaccharide, 00:00:00 [facility] ical PPSV23 (PNEUMOVAX) Branch Pneumococcal 2014-08-02 Completed University o f Polysaccharide, 00:00:00 [place] Med ical PPSV23 (PNEUMOVAX) Branch Pneumococcal 2014-08-02 Completed University o f Polysaccharide, 00:00:00 [place] Med ical PPSV23 (PNEUMOVAX) Branch Vital Signs Vital Name Observation Time Observation Value Comments Source Systolic blood 2021-09-29 20:09:00 139 mm[Hg] Univer sity of pressure [place] [facility] [place] Diastolic blood 2021-09-29 20:09:00 61 mm[Hg] Unive rsity of pressure [place] [facility] Heart rate 2021-09-29 20:09:00 73 /min Universi ty of [place] [facility] Body temperature 2021-09-29 20:09:00 36.5 Priya Univ ersity of [place] [facility] Respiratory rate 2021-09-29 20:09:00 16 /min Univ ersity of [place] [facility] Body height 2021-09-29 20:09:00 160 cm Universi ty [facility] [place] [facility] Body weight 2021-09-29 20:09:00 61.326 kg Universi ty [facility] [place] [facility] BMI 2021-09-29 20:09:00 23.95 kg/m2 Universi ty of [place] [facility] Oxygen saturation in 2021-09-29 20:09:00 93 /min University of Arterial blood by [place] [employer] Pulse oximetry Branch Systolic blood 2021-09-29 20:09:00 139 mm[Hg] Univer sity of pressure [place] [facility] Diastolic blood 2021-09-29 20:09:00 61 mm[Hg] Unive rsity of pressure [place] [facility] [place] Heart rate 2021-09-29 20:09:00 73 /min Universi ty [facility] [place] [facility] Body temperature 2021-09-29 20:09:00 36.5 Priya Univ ersity of [place] [facility] Respiratory rate 2021-09-29 20:09:00 16 /min Univ ersity of [place] [facility] Body height 2021-09-29 20:09:00 160 cm [facility]i [facility] [place] [facility] Body weight 2021-09-29 20:09:00 61.326 kg Universi ty [facility] [place] [facility] BMI 2021-09-29 20:09:00 23.95 kg/m2 [facility] [place] [facility] Oxygen saturation in 2021-09-29 20:09:00 93 /min University of Arterial blood by [employer]el Pulse oximetry Branch WEIGHT 2021-07-03 13:00:00 60.4 kg WEIGHT 2021-07-02 [...] kg Systolic blood 2021-05-23 01:40:00 126 mm[Hg] [facility] Diastolic blood 2021-05-23 01:40:00 46 mm[Hg] Unive rsity of pressure [facility] Heart rate 2021-05-23 01:40:00 62 /min Universi ty [facility] Body temperature 2021-05-23 01:40:00 35.67 [facility] 2021-05-23 01:40:00 16 /min [facility] Body weight 2021-05-23 01:40:00 67.3 kg Universi [facility] BMI 2021-05-23 01:40:00 26.28 kg/m2 [facility] Oxygen saturation in 2021-05-22 17:16:00 93 /min University Arterial blood by [facility] Pulse oximetry Branch Body height 2021-05-19 19:34:00 160 cm [facility] Systolic blood 2021-07-04 08:10:00 149 mm[Hg] [facility] Diastolic blood 2021-07-04 08:10:00 65 mm[Hg] [facility] Heart rate 2021-07-04 08:10:00 71 /min [facility] Body temperature 2021-07-04 08:10:00 36.22 Priya [facility] Respiratory rate 2021-07-04 08:10:00 18 /min [facility] Oxygen saturation in 2021-07-04 08:10:00 93 /min [facility] Arterial blood by Medical Ce nter Pulse oximetry Systolic blood 2021-07-03 14:23:00 123 mm[Hg] [facility] Diastolic blood 2021-07-03 14:23:00 60 mm[Hg] [facility] [facility] Heart rate 2021-07-03 14:23:00 70 /min [facility] Body temperature 2021-07-03 14:23:00 35.94 Priya [facility] Respiratory rate 2021-07-03 14:23:00 18 /min [facility] Oxygen saturation in 2021-07-03 14:23:00 97 /min [facility] Arterial blood by Medical Ce nter Pulse oximetry Body weight 2021-07-03 13:00:00 60.4 kg [facility] BMI 2021-07-03 13:00:00 23.59 kg/m2 [facility] Systolic blood 2021-07-03 08:18:00 156 mm[Hg] [facility] Diastolic blood 2021-07-03 08:18:00 67 mm[Hg] [facility] Heart rate 2021-07-03 08:18:00 68 /min [facility] Body temperature 2021-07-03 08:18:00 36.22 Priya [facility] Respiratory rate 2021-07-03 08:18:00 20 /min [facility] Oxygen saturation in 2021-07-03 08:18:00 94 /min [facility] Arterial blood by Medical Ce [facility]ter Pulse oximetry Heart rate 2021-07-02 10:00:00 72 /min [facility] Systolic blood 2021-07-02 08:00:00 171 mm[Hg] [facility] Diastolic blood 2021-07-02 08:00:00 78 mm[Hg] [facility] Body temperature 2021-07-02 08:00:00 36.56 Priya [facility] Respiratory rate 2021-07-02 08:00:00 20 /min [facility] Oxygen saturation in 2021-07-02 08:00:00 94 /min [facility] Arterial blood by Medical Ce [facility]ter Pulse oximetry Body weight 2021-07-02 04:21:00 62.37 kg [facility] BMI 2021-07-02 04:21:00 24.36 kg/m2 [facility] Systolic blood 2021-07-01 09:15:00 167 mm[Hg] [facility] Diastolic blood 2021-07-01 09:15:00 71 mm[Hg] [facility] Heart rate 2021-07-01 09:15:00 71 /min [facility] Respiratory rate 2021-07-01 09:15:00 14 /min [facility] Oxygen saturation in 2021-07-01 09:15:00 96 /min [facility] Arterial blood by Medical Ce nter Pulse oximetry Body temperature 2021-07-01 09:00:00 36.44 Priya [facility] Systolic blood 2021-06-29 14:24:00 169 mm[Hg] [facility] Diastolic blood 2021-06-29 14:24:00 71 mm[Hg] [facility] Heart rate 2021-06-29 14:24:00 70 /min [facility] Body temperature 2021-06-29 14:24:00 36.67 Priya [facility] Respiratory rate 2021-06-29 14:24:00 20 /min [facility] Oxygen saturation in 2021-06-29 14:24:00 98 /min [facility] Arterial blood by Medical Ce nter Pulse oximetry Systolic blood 2021-06-29 07:46:00 133 mm[Hg] [facility] Diastolic blood 2021-06-29 07:46:00 63 mm[Hg] [facility] Heart rate 2021-06-29 07:46:00 70 /min [facility] Body temperature 2021-06-29 07:46:00 36.44 Priya [facility] Respiratory rate 2021-06-29 07:46:00 20 /min [facility] Oxygen saturation in 2021-06-29 07:46:00 97 /min [facility] Arterial blood by Medical Ce nter Pulse oximetry Systolic blood 2021-06-26 10:15:00 169 mm[Hg] [facility] Diastolic blood 2021-06-26 10:15:00 66 mm[Hg] [facility] Heart rate 2021-06-26 10:15:00 71 /min [facility] Body temperature 2021-06-26 10:15:00 36.56 Priya [facility] Respiratory rate 2021-06-26 10:15:00 16 /min [facility] Oxygen saturation in 2021-06-26 10:15:00 99 /min [facility] Arterial blood by Medical Ce [facility]ter Pulse oximetry Systolic blood 2021-06-26 08:15:00 128 mm[Hg] [facility] Diastolic blood 2021-06-26 08:15:00 53 mm[Hg] [facility] Heart rate 2021-06-26 08:15:00 70 /min [facility] Body temperature 2021-06-26 08:15:00 36.5 Priya [facility] Respiratory rate 2021-06-26 08:15:00 9 /min [facility] Oxygen saturation in 2021-06-26 08:15:00 97 /min [facility] Arterial blood by Medical Ce [facility]ter Pulse oximetry Body weight 2021-06-25 00:00:00 64.5 kg [facility] BMI 2021-06-25 00:00:00 25.19 kg/m2 [facility] Body height 2021-06-13 11:09:00 160 cm [facility] Body height 2020-07-24 16:34:00 160 cm [facility] Body weight 2020-07-24 16:34:00 67 kg [facility] BMI 2020-07-24 16:34:00 26.17 kg/m2 [facility] Temperature Oral (F) 2019-02-19 22:00:00 98.3 F [facility] Heart Rate 2019-02-19 22:00:00 [facility] Respitory Rate 2019-02-19 22:00:00 [facility] Systolic (mm Hg) 2019-02-19 22:00:00 Dickson rial [facility] Diastolic (mm Hg) 2019-02-19 22:00:00 [facility] Height 2019-02-19 11:49:00 [facility] Weight 2019-02-19 11:49:00 [facility] Height 2019-01-26 05:47:00 [facility] Heart Rate 2019-01-26 05:47:00 [facility] Respitory Rate 2019-01-26 05:47:00 [facility] Systolic (mm Hg) 2019-01-26 05:47:00 Dickson rial [facility] Diastolic (mm Hg) 2019-01-26 05:47:00 [facility] Temperature Oral (F) 2019-01-26 05:19:00 101.3 F [facility] Weight 2019-01-26 01:51:00 [facility] Heart Rate 2018-10-11 20:05:00 [facility] Systolic (mm Hg) 2018-10-11 20:05:00 Dickson arzate [facility] Diastolic (mm Hg) 2018-10-11 20:05:00 [facility] Temperature Oral (F) 2018-10-11 20:00:00 98.1 F [facility] Respitory Rate 2018-10-11 20:00:00 Talisha al [facility] Height 2018-10-10 13:16:00 [facility] Weight 2018-10-10 13:16:00 [facility] Procedures Procedure Date / Time Performing Clinician Source Performed EXTERNAL PROVIDER RECORDS 2021-12-15 05:01:00 Doctor Unassigned, No [facility] EXTERNAL PROVIDER - ADC 2021-10-21 05:01:00 Doctor Unassigned, N o [facility] REFERRAL [facility] ARRYTHMIA IMPLANT REPORT 2021-07-06 00:00:00 Provider, Default C AIRAM [facility] POCT-GLUCOSE METER 2021-07-04 08:33:00 RussoLogan [facility] CBC (HEMOGRAM ONLY) 2021-07-04 04:37:00 Martinez Ricardo [facility] BASIC METABOLIC PANEL (7) 2021-07-04 04:37:00 Dillon Ricardo [facility] MAGNESIUM 2021-07-04 04:37:00 Martinez Ricardo [facility] PHOSPHORUS 2021-07-04 04:37:00 Martinez Ricardo [facility] XR CHEST 1 VIEW PORTABLE 2021-07-04 04:30:00 Martinez Ricardo [facility] / BEDSIDE [facility] POCT-GLUCOSE METER 2021-07-03 21:18:00 Logan Russo [facility] POCT-GLUCOSE METER 2021-07-03 17:40:00 Logan Russo [facility] SARS-COV2/RT-PCR ([facility] & 2021-07-03 17:24:00 Martinez Ricardo [facility] REF LABS) [facility] POCT-GLUCOSE METER 2021-07-03 16:06:00 Logan Russo [facility] REPORT OF PROCEDURE - 2021-07-03 15:34:23 Amaratungjaden Mayohomar [facility] ENDOSCOPY URL [facility] COLONOSCOPY 2021-07-03 15:05:00 Amaratunge Mayohomar [facility] TISSUE EXAM 2021-07-03 15:04:00 Amaratunge Mayohomar [facility] COLONOSCOPY,POLYPECTOMY 2021-07-03 14:39:00 Amaratungjaden Mayoprema stanley [facility] COLONOSCOPY, WITH 2021-07-03 14:39:00 [facility] COLONOSCOPY 2021-07-03 14:00:00 Amaratungjaden [facility] POCT-GLUCOSE METER 2021-07-03 13:31:00 Logan Russo [facility] COLONOSCOPY 2021-07-03 13:00:00 Amaratguerda [facility] HEMODIALYSIS INPATIENT 2021-07-03 10:32:50 Wilner Aponte [facility] POCT-GLUCOSE METER 2021-07-03 08:44:00 Logan Russo [facility] XR CHEST 1 VIEW PORTABLE 2021-07-03 05:24:00 Martinez Ricardo [facility] / BEDSIDE [facility] CBC (HEMOGRAM ONLY) 2021-07-03 03:08:00 Martinez Ricardo [facility] BASIC METABOLIC PANEL (7) 2021-07-03 03:08:00 Dillon Ricardo [facility] MAGNESIUM 2021-07-03 03:08:00 Martinez Ricardo [facility] PHOSPHORUS 2021-07-03 03:08:00 Martinez Ricardo [facility] POCT-GLUCOSE METER 2021-07-02 21:26:00 Russo, Logan Vaca [facility] POCT-GLUCOSE METER 2021-07-02 17:49:00 Russo, Logan Vaca [facility] POCT-GLUCOSE METER 2021-07-02 12:48:00 Russo, Logan Vaca [facility] POCT-GLUCOSE METER 2021-07-02 08:33:00 Russo, Logan Vaca [facility] XR CHEST 1 VIEW PORTABLE 2021-07-02 06:45:00 Davion [facility] CBC (HEMOGRAM ONLY) 2021-07-02 05:29:00 Davion [facility] BASIC METABOLIC PANEL (7) 2021-07-02 05:29:00 Dillon Ricardo [facility] MAGNESIUM 2021-07-02 05:29:00 Davion [facility] PHOSPHORUS 2021-07-02 05:29:00 [facility] POCT-GLUCOSE METER 2021-07-01 21:45:00 Russo, Logan Vaca [facility] POCT-GLUCOSE METER 2021-07-01 17:44:00 RussoLogan [facility] POCT-GLUCOSE METER 2021-07-01 13:26:00 RussoLogan [facility] HEMODIALYSIS INPATIENT 2021-07-01 12:51:00 Wilner Aponte [facility] HEMODIALYSIS INPATIENT 2021-07-01 09:16:58 Wilner Aponte [facility] POCT-GLUCOSE METER 2021-07-01 08:31:00 Russo, Logan Vaca [facility] XR CHEST 1 VIEW PORTABLE 2021-07-01 05:38:00 Davion [facility] CBC (HEMOGRAM ONLY) 2021-07-01 05:15:00 Davion [facility] BASIC METABOLIC PANEL (7) 2021-07-01 05:15:00 Dillon Ricardo [facility] MAGNESIUM 2021-07-01 05:15:00 Martinez Ricardo [facility] PHOSPHORUS 2021-07-01 05:15:00 [facility]SE [facility]ER 2021-06-30 21:03:00 Logan Russo [facility] VENOGRAM 2021-06-30 18:06:00 Krzysztof Dodd [facility] POCT-GLUCOSE METER 2021-06-30 17:27:00 Logan Russo [facility] XR ABDOMEN / KUB 1 VIEW 2021-06-30 17:21:00 Rowan Loco [facility] POCT-GLUCOSE METER 2021-06-30 12:24:00 Logan Russo [facility] POCT-GLUCOSE METER 2021-06-30 08:15:00 Logan Russo [facility] CBC (HEMOGRAM ONLY) 2021-06-30 04:40:00 Martinez Ricardo [facility] BASIC METABOLIC PANEL (7) 2021-06-30 04:40:00 Dillon Ricardo [facility] MAGNESIUM 2021-06-30 04:40:00 [facility] 2021-06-30 04:40:00 Martinez Ricardo [facility] XR CHEST 1 VIEW PORTABLE 2021-06-30 03:46:00 Martinez Ricardo [facility] / BEDSIDE [facility] PREPARE LEUKO-REDUCED RBC 2021-06-29 23:54:00 Dillon Ricardo [facility] POCT-GLUCOSE METER 2021-06-29 21:53:00 RussoLogan del cid [facility] POCT-GLUCOSE METER 2021-06-29 17:44:00 RussoLogan [facility] POCT-GLUCOSE METER 2021-06-29 14:20:00 Logan Russo [facility] HEMODIALYSIS INPATIENT 2021-06-29 13:25:00 Bertrand Bueno DIANE [facility] POCT-GLUCOSE METER 2021-06-29 08:39:00 Logan Russo [facility] XR CHEST 1 VIEW PORTABLE 2021-06-29 05:20:00 Martinez Ricardo [facility] CBC (HEMOGRAM ONLY) 2021-06-29 04:49:00 Martinez Ricardo [facility] BASIC METABOLIC PANEL (7) 2021-06-29 04:49:00 Dillon Ricardo [facility] MAGNESIUM 2021-06-29 04:49:00 Martinez Ricardo [facility] PHOSPHORUS 2021-06-29 04:49:00 [facility] POCT-GLUCOSE METER 2021-06-28 19:42:00 Logan Russo [facility] POCT-GLUCOSE METER 2021-06-28 17:22:00 Logan Russo [facility] CBC W/PLT COUNT & AUTO 2021-06-28 15:23:00 Niki [facility] CBC W/PLT COUNT & AUTO 2021-06-28 15:23:00 Niki [facility] POCT-GLUCOSE METER 2021-06-28 12:31:00 Logan Russo [facility] TRANSFUSE LEUKO-REDUCED 2021-06-28 11:03:00 Martinez Ricardo [facility] RED BLOOD CELLS [facility] PREPARE LEUKO-REDUCED RBC 2021-06-28 10:49:00 Dillon Ricardo [facility] POCT-GLUCOSE METER 2021-06-28 08:32:00 Logan Russo [facility] XR CHEST 1 VIEW PORTABLE 2021-06-28 04:23:00 Martinez Ricardo [facility] CBC (HEMOGRAM ONLY) 2021-06-28 04:05:00 [facility]OLIC PANEL (7) 2021-06-28 04:05:00 Dillon Ricardo [facility] MAGNESIUM 2021-06-28 04:05:00 Martinez Ricardo [facility] PHOSPHORUS 2021-06-28 04:05:[address] [facility] LEUKO-REDUCED RBC 2021-06-27 23:54:00 Dillon Ricardo [facility] POCT-GLUCOSE METER 2021-06-27 21:27:00 RussoLogan [facility] POCT-GLUCOSE METER 2021-06-27 17:51:00 RussoLogan [facility] POCT-GLUCOSE METER 2021-06-27 15:02:00 RussoLogan [facility] POCT-GLUCOSE METER 2021-06-27 12:08:00 RussoLogan [facility] POCT-GLUCOSE METER 2021-06-27 08:23:00 Logan Russo [facility] SARS-COV2/RT-PCR ([facility] & 2021-06-27 04:13:00 [facility] CBC (HEMOGRAM ONLY) 2021-06-27 04:08:00 Martinez Ricardo [facility] BASIC METABOLIC PANEL (7) 2021-06-27 04:08:00 Dillon Ricardo [facility] MAGNESIUM 2021-06-27 04:08:00 [facility] 2021-06-27 04:08:[address] [facility] 2021-06-27 04:08:00 Abel Hernandez [facility] PROTHROMBIN TIME/INR 2021-06-27 04:08:00 Abel Hernandez [facility] XR CHEST 1 VIEW PORTABLE 2021-06-27 03:58:00 Martinez Ricardo [facility] / BEDSIDE [facility] POCT-GLUCOSE METER 2021-06-26 20:59:00 Russo, Logan Vaca [facility] HEMODIALYSIS INPATIENT 2021-06-26 19:13:00 Jersey Costello Wilner [facility] POCT-GLUCOSE METER 2021-06-26 18:55:00 Russo, Logan Vaca [facility] HEMOGLOBIN AND HEMATOCRIT 2021-06-26 11:31:00 Sudhir Erwinhe lucy [facility] POCT-GLUCOSE METER 2021-06-26 11:15:00 Russo, Logan Vaca [facility] POCT-GLUCOSE METER 2021-06-26 09:16:00 Russo, Logan Vaca [facility] LASER EXTRACTION,LEAD 2021-06-26 07:30:00 Krzysztof Dodd [facility] TRANSFUSE LEUKO-REDUCED 2021-06-26 06:15:00 Martinez Ricardo [facility] RED BLOOD CELLS [facility] PREPARE LEUKO-REDUCED RBC 2021-06-26 06:01:00 Dillon Ricardo [facility] CBC (HEMOGRAM ONLY) 2021-06-26 03:25:00 [facility]OLIC PANEL (7) 2021-06-26 03:25:00 Dillon Ricardo [facility] MAGNESIUM 2021-06-26 03:25:00 Martinez Ricadro [facility] PHOSPHORUS 2021-06-26 03:25:[address] [facility] 2021-06-26 03:25:00 Abel Hernandez [facility] PROTHROMBIN TIME/INR 2021-06-26 03:25:00 Abel Hernandez [facility] XR CHEST 1 VIEW PORTABLE 2021-06-26 01:25:00 Martinez Ricardo [facility] / BEDSIDE [facility] POCT-GLUCOSE METER 2021-06-25 21:46:00 Logan Russo [facility] TYPE AND SCREEN, 2021-06-25 18:55:[address] [facility] IR TUNNELED CATHETER 2021-06-25 17:45:00 Gurinder Nash [facility] POCT-GLUCOSE METER 2021-06-25 11:18:00 Logan Russo [facility] ECG 12-LEAD 2021-06-25 09:57:06 Unknown, Hl7 [facility] ECG 12-LEAD 2021-06-25 09:57:06 Unknown, 7 [facility] ECG 12-LEAD 2021-06-25 09:56:17 Unknown, 7 [facility] CBC (HEMOGRAM ONLY) 2021-06-25 02:56:00 Davion Martinez [facility] BASIC METABOLIC PANEL (7) 2021-06-25 02:56:00 Dillon Ricardo [facility] MAGNESIUM 2021-06-25 02:56:00 [facility] 2021-06-25 02:56:00 Davion [facility] APTT 2021-06-25 02:56:00 MaryAbel hernandez [facility] PROTHROMBIN TIME/INR 2021-06-25 02:56:00 Abel Hernandez [facility] XR CHEST 1 VIEW PORTABLE 2021-06-25 02:31:00 Martinez Ricardo [facility] / BEDSIDE [facility] POCT-GLUCOSE METER 2021-06-24 22:02:00 Logan Russo [facility] XR ABDOMEN / KUB 1 VIEW 2021-06-24 18:29:00 Gurinder Nash [facility] POCT-GLUCOSE METER 2021-06-24 16:07:00 Logan Russo [facility] POCT-GLUCOSE METER 2021-06-24 12:26:00 Logan Russo [facility] HEMODIALYSIS INPATIENT 2021-06-24 11:25:03 Winler Aponte [facility] POCT-GLUCOSE METER 2021-06-24 08:28:00 Logan Russo [facility] CBC (HEMOGRAM ONLY) 2021-06-24 03:01:00 Martinez Ricardo [facility] BASIC METABOLIC PANEL (7) 2021-06-24 03:01:00 Dillon Ricardo [facility] MAGNESIUM 2021-06-24 03:01:00 Martinez Ricardo [facility] PHOSPHORUS 2021-06-24 03:01:00 Davion [facility] APTT 2021-06-24 03:01:00 Abel Hernandez [facility] PROTHROMBIN TIME/INR 2021-06-24 03:01:00 Abel Hernandez [facility] XR CHEST 1 VIEW PORTABLE 2021-06-24 00:32:00 Martinez Ricardo [facility] / BEDSIDE [facility] POCT-GLUCOSE METER 2021-06-23 20:56:00 Logan Russo [facility] POCT-GLUCOSE METER 2021-06-23 16:10:00 Logan Russo [facility] BASIC METABOLIC PANEL (7) 2021-06-23 12:59:00 Omaira Manzo [facility] POCT-GLUCOSE METER 2021-06-23 11:20:00 Logan Russo [facility] POCT-GLUCOSE METER 2021-06-23 07:29:00 Logan Russo [facility] BASIC METABOLIC PANEL (7) 2021-06-23 04:49:00 Omaira Manzo [facility] MAGNESIUM 2021-06-23 04:49:00 Martinez Ricardo [facility] PHOSPHORUS 2021-06-23 04:49:00 Davion [facility] CBC (HEMOGRAM ONLY) 2021-06-23 02:41:00 Martinez Ricardo [facility] APTT 2021-06-23 02:41:00 MaryAbel hernandez [facility] PROTHROMBIN TIME/INR 2021-06-23 02:41:00 MaryAbel hernandez [facility] XR CHEST 1 VIEW PORTABLE 2021-06-23 01:19:00 [facility] POCT-GLUCOSE METER 2021-06-22 22:11:00 RussoLogan [facility] POCT-GLUCOSE METER 2021-06-22 18:02:00 RussoLogan [facility] 2D ECHO W/ DOPPLER 2021-06-22 15:55:38 Lupis Erwin CH, I [facility] (CW/PW/COLOR) [facility] BASIC METABOLIC PANEL (7) 2021-06-22 14:30:00 Omaira Manzo [facility] POCT-GLUCOSE METER 2021-06-22 12:25:00 Logan Russo [facility] HEMODIALYSIS INPATIENT 2021-06-22 11:44:15 Wilner Aponte [facility] OXYGEN SATURATION, 2021-06-22 10:35:00 Lupis Erwin CH, I [facility] BASIC METABOLIC PANEL (7) 2021-06-22 05:37:00 Omaira Manzo [facility] CBC (HEMOGRAM ONLY) 2021-06-22 01:34:00 Martinez Ricardo [facility] APTT 2021-06-22 01:34:00 MaryAbel hernandez [facility] PROTHROMBIN TIME/INR 2021-06-22 01:34:00 Abel Hernandez [facility] BASIC METABOLIC PANEL (7) 2021-06-22 01:33:00 Omaira Manzo [facility] MAGNESIUM 2021-06-22 01:33:00 [facility] 2021-06-22 01:33:00 [facility]ael [facility] 1 VIEW PORTABLE 2021-06-22 01:05:00 Davion [facility] POCT-GLUCOSE METER 2021-06-21 21:09:00 RussoLogan [facility] POCT-GLUCOSE METER 2021-06-21 18:58:00 RussoLogan [facility] POCT-GLUCOSE METER 2021-06-21 13:30:00 RussoLogan [facility] BASIC METABOLIC PANEL (7) 2021-06-21 13:29:00 Omaira Manzo [facility] PREPARE LEUKO-REDUCED RBC 2021-06-21 03:28:00 Derick Carver Si [facility] BASIC METABOLIC PANEL (7) 2021-06-21 03:21:00 Omaira Manzo [facility] MAGNESIUM 2021-06-21 03:21:00 Ahmapamela [facility] PHOSPHORUS 2021-06-21 03:21:00 [facility] CBC (HEMOGRAM ONLY) 2021-06-21 03:21:00 Davion [facility] APTT 2021-06-21 03:21:00 Abel Hernandez [facility] PROTHROMBIN TIME/INR 2021-06-21 03:21:00 Abel Hernandez [facility] XR CHEST 1 VIEW PORTABLE 2021-06-21 01:34:00 Davion [facility] PREPARE LEUKO-REDUCED RBC 2021-06-20 23:54:00 Art Jiménez [facility] BASIC METABOLIC PANEL (7) 2021-06-20 17:40:00 Omaira Manzo [facility] POCT-GLUCOSE METER 2021-06-20 13:33:00 RussoLogan [facility] POCT-GLUCOSE METER 2021-06-20 06:06:00 Logan Russo [facility] SARS-COV2/RT-PCR ([facility] & 2021-06-20 01:20:00 Davion [facility] REF LABS) [facility] BLOOD GAS, ARTERIAL 2021-06-20 01:20:00 [facility] BASIC METABOLIC PANEL (7) 2021-06-20 01:19:00 SravanmaSamia santiago I [facility] MAGNESIUM 2021-06-20 01:19:00 Ahmad [facility] PHOSPHORUS 2021-06-20 01:19:00 sarah [facility] CBC (HEMOGRAM ONLY) 2021-06-20 01:19:00 [facility] 2021-06-20 01:19:00 Mary [facility] PROTHROMBIN TIME/INR 2021-06-20 01:19:00 Mary [facility] CALCIUM, IONIZED 2021-06-20 01:19:00 Jersey Costello [facility] XR CHEST 1 VIEW PORTABLE 2021-06-20 01:05:00 Martinez Ricardo [facility] / BEDSIDE [facility] PREPARE PLATELETS 2021-06-19 23:55:00 Jameson Kuo [facility] PREPARE RBC 2021-06-19 23:54:00 Logan Russo [facility] MAGNESIUM 2021-06-19 21:32:00 [facility] 2021-06-19 21:32:00 Jersey Costello Wilner [facility] PHOSPHORUS 2021-06-19 21:32:00 [facility] BASIC METABOLIC PANEL (7) 2021-06-19 21:32:00 Omaira Manzo [facility] POCT-GLUCOSE METER 2021-06-19 17:55:00 Logan Russo [facility] BLOOD GAS, ARTERIAL 2021-06-19 12:39:00 Mary, [facility] BLOOD GAS, ARTERIAL 2021-06-19 11:13:00 Mary, Abel [facility] POCT-GLUCOSE METER 2021-06-19 08:41:00 Russo, Logan Vaca [facility] TRANSFUSE LEUKO-REDUCED 2021-06-19 07:45:00 Derick Carver [facility] RED BLOOD CELLS [facility] BASIC METABOLIC PANEL (7) 2021-06-19 02:14:00 Ahmad, [facility] MAGNESIUM 2021-06-19 02:14:00 Ahmad, [facility] PHOSPHORUS 2021-06-19 02:14:00 Ahmad, [facility] CBC (HEMOGRAM ONLY) 2021-06-19 02:14:00 Davion Martinez [facility] APTT 2021-06-19 02:14:00 Mary, [facility] PROTHROMBIN TIME/INR 2021-06-19 02:14:00 Mary Abel [facility] BLOOD GAS, ARTERIAL 2021-06-19 02:14:00 Mary, [facility] OXYGEN SATURATION, 2021-06-19 02:14:00 Art Jiménez [facility] XR CHEST 1 VIEW PORTABLE 2021-06-19 01:52:00 Martinez Ricardo [facility] / BEDSIDE [facility] POCT-GLUCOSE METER 2021-06-18 23:55:00 Russo, Logan Vaca [facility] PREPARE LEUKO-REDUCED RBC 2021-06-18 23:55:00 Shiva Jeter [facility] POCT-GLUCOSE METER 2021-06-18 23:03:00 Russo, Logan Vaca [facility] POCT-GLUCOSE METER 2021-06-18 21:14:00 Russo, Logan Vaca [facility] POCT-GLUCOSE METER 2021-06-18 18:54:00 Russo, Logan Vaca [facility] CBC (HEMOGRAM ONLY) 2021-06-18 18:15:00 MaryAbel hernandez [facility] BASIC METABOLIC PANEL (7) 2021-06-18 18:15:00 MaryAbel hernandez [facility] APTT 2021-06-18 18:15:00 MaryAbel [facility] PROTHROMBIN TIME/INR 2021-06-18 18:15:00 Mary, Abel Rey [facility] LACTIC ACID, ARTERIAL 2021-06-18 18:15:00 Mary, Abel Rey [facility] PHOSPHORUS 2021-06-18 18:15:00 Mary, Abel Rey [facility] MAGNESIUM 2021-06-18 18:15:00 Mary, Aeblscarlett Rey [facility] BLOOD GAS, ARTERIAL 2021-06-18 18:15:00 MaryAbel [facility] OXYGEN SATURATION, 2021-06-18 18:15:00 MaryAbel [facility] RRL CRITICAL LABS 2021-06-18 16:04:00 Mary [facility] (ABG,NA,K,H&H,GLUCOSE) Medical C enter CALCIUM, IONIZED 2021-06-18 16:04:00 Mary Abel [facility] BLOOD GAS, ARTERIAL 2021-06-18 16:04:00 MaryAbel [facility] SODIUM NA-STAT LAB 2021-06-18 16:04:00 Mary [facility] POTASSIUM-STAT LAB 2021-06-18 16:04:00 Mary [facility] GLUCOSE-STAT LAB 2021-06-18 16:04:00 Mary [facility] HGB/HCT (H&H) - STAT LAB 2021-06-18 16:04:00 [facility] PREPARE PLASMA 2021-06-18 15:44:00 Logan Russo [facility] XR CHEST 1 VIEW PORTABLE 2021-06-18 15:33:00 Abel Hernandez [facility] / BEDSIDE Medical Center OXYGEN SATURATION, 2021-06-18 15:03:00 Abel Hernandez [facility] SURGICALLY OBTAINED 2021-06-18 15:01:35 Logan Russo [facility] CULTURE + GRAM STAIN Medical Kwesi ter FUNGUS CULTURE + SMEAR 2021-06-18 15:01:35 Logan Russo [facility] [employer] [facility] CULTURE + SMEAR 2021-06-18 15:01:35 Logan Russo [facility] (NON-SPUTUM) [facility] HEMOGLOBIN AND HEMATOCRIT 2021-06-18 14:58:00 Luh Cosby [facility] CBC W/PLT COUNT & AUTO 2021-06-18 14:58:00 Abel Hernandez [facility] CBC W/PLT COUNT & AUTO 2021-06-18 14:58:00 Abel Hernandez [facility] (CELLAVISION MANUAL DIFF) 2021-06-18 14:58:00 Abel Hernandez [facility] BASIC METABOLIC PANEL (7) 2021-06-18 14:57:00 Abel Hernandez [facility] MAGNESIUM 2021-06-18 14:57:00 Abel Hernandez [facility] CALCIUM, IONIZED 2021-06-18 14:57:00 Abel Hernandez [facility] PROTHROMBIN TIME/INR 2021-06-18 14:57:00 Abel Hernandez [facility] APTT 2021-06-18 14:57:00 Abel Hernandez [facility] PHOSPHORUS 2021-06-18 14:57:00 Abel Hernandez [facility] POTASSIUM 2021-06-18 14:57:00 Mary [facility] PREPARE PLATELETS 2021-06-18 14:20:00 Jameson Kuo [facility] PLATELET COUNT 2021-06-18 13:12:54 Asad Santana [facility] POCT-ACT 2021-06-18 13:08:00 Logan Russo [facility] RRL CRITICAL LABS 2021-06-18 13:05:56 Cross, [facility] (ABG,NA,K,H&H,GLUCOSE) [facility] enter CALCIUM, IONIZED 2021-06-18 13:05:56 [facility] 2021-06-18 13:05[facility] 2021-06-18 13:05:56 [facility] PROTHROMBIN TIME/INR 2021-06-18 13:05:56 [facility] BLO[facility], ARTERIAL 2021-06-18 13:05:[address] [facility] SODIUM NA-STAT LAB 2021-06-18 13:05:56 [facility] POTASSIUM-STAT LAB 2021-06-18 13:05:56 [facility] GLUCOSE-STAT LAB 2021-06-18 13:05:56 [facility] HGB/HCT (H&H) - STAT LAB 2021-06-18 13:05:56 Asad Santana [facility] TRANSFUSE LEUKO-REDUCED 2021-06-18 12:46:00 Asad Santana [facility] PLATELETS [facility] TRANSFUSE LEUKO-REDUCED 2021-06-18 12:45:00 [facility] PLATELETS [facility] RRL CRITICAL LABS 2021-06-18 12:22:[address] [facility] (ABG,NA,K,H&H,GLUCOSE) [facility] C enter BLOOD GAS, ARTERIAL 2021-06-18 12:22:57 Logan Russo [facility] SODIUM NA-STAT LAB 2021-06-18 12:22:57 Logan Russo [facility] POTASSIUM-STAT LAB 2021-06-18 12:22:57 Beth, Logan Vaca [facility] GLUCOSE-STAT LAB 2021-06-18 12:22:57 Beth Logan Vaca [facility] HGB/HCT (H&H) - STAT LAB 2021-06-18 12:22:57 Beth Logan Vaca [facility] POCT-ACT 2021-06-18 12:20:00 Beth Logan Nola [facility] RRL CRITICAL LABS 2021-06-18 12:17:57 Beth Logan [facility]aca [facility] (ABG,NA,K,H&H,GLUCOSE) [facility] C enter BLOOD GAS, ARTERIAL 2021-06-18 12:17:57 Beth Logan Vaca [facility] SODIUM NA-STAT LAB 2021-06-18 12:17:57 Beth Logan Vaca [facility] POTASSIUM-STAT LAB 2021-06-18 12:17:57 Beth Logan Vaca [facility] GLUCOSE-STAT LAB 2021-06-18 12:17:57 Beth Logan Vaca [facility] HGB/HCT (H&H) - STAT LAB 2021-06-18 12:17:57 Logan Russo [facility] MISCELLANEOUS LAB ORDER 2021-06-18 11:59:38 [facility] PLATELET COUNT 2021-06-18 11:59:[address] [facility] FIBRINOGEN 2021-06-18 11:59:[address] [facility] PROTHROMBIN TIME/INR 2021-06-18 11:59:38 [facility] APTT 2021-06-18 11:59:[address] [facility] POCT-ACT 2021-06-18 11:43:00 Logan Russo [facility] TISSUE EXAM 2021-06-18 11:41:00 Logan Russo [facility] RRL CRITICAL LABS 2021-06-18 11:40:27 Russo, Logan Vaca [facility] es (ABG,NA,K,H&H,GLUCOSE) Medical C enter BLOOD GAS, ARTERIAL 2021-06-18 11:40:27 Russo, [facility] SODIUM NA-STAT LAB 2021-06-18 11:40:27 Russo, Logan [facility] POTASSIUM-STAT LAB 2021-06-18 11:40:27 Russo, Logan [facility] GLUCOSE-STAT LAB 2021-06-18 11:40:27 Russo, [facility] HGB/HCT (H&H) - STAT LAB 2021-06-18 11:40:27 Russo [facility] POCT-ACT 2021-06-18 11:15:00 Russo, [facility] RRL CRITICAL LABS 2021-06-18 11:13:46 Russo, Logan Vaca [facility] es (ABG,NA,K,H&H,GLUCOSE) Medical C enter BLOOD GAS, ARTERIAL 2021-06-18 11:13:46 Beth [facility] SODIUM NA-STAT LAB 2021-06-18 11:13:46 Russo, [facility] POTASSIUM-STAT LAB 2021-06-18 11:13:46 Russo, [facility] GLUCOSE-STAT LAB 2021-06-18 11:13:46 Beth [facility] HGB/HCT (H&H) - STAT LAB 2021-06-18 11:13:46 Beth [facility] POCT-ACT 2021-06-18 10:47:00 Beth [facility] RRL CRITICAL LABS 2021-06-18 10:45:20 [facility] (ABG,NA,K,H&H,GLUCOSE) Medical C enter BLOOD GAS, ARTERIAL 2021-06-18 10:45:20 Russo, [facility] SODIUM NA-STAT LAB 2021-06-18 10:45:20 Russo, Logan Vaca [facility] POTASSIUM-STAT LAB 2021-06-18 10:45:20 Russo, Logan Vaca [facility] GLUCOSE-STAT LAB 2021-06-18 10:45:20 Russo, Logan Vaca [facility] HGB/HCT (H&H) - STAT LAB 2021-06-18 10:45:20 Russo, Logan Vaca [facility] POCT-ACT 2021-06-18 10:14:00 Russo, Logan Vaca [facility] ANESTHESIA NIMCO 2021-06-18 10:03:35 Lydia Marmolejo [facility] TRANSFUSE LEUKO-REDUCED 2021-06-18 09:26:00 Asad Santana [facility] RED BLOOD CELLS [facility] RRL CRITICAL LABS 2021-06-18 08:54:20 Max [facility] (ABG,NA,K,H&H,GLUCOSE) [facility] enter CALCIUM, IONIZED 2021-06-18 08:54:20 Max [facility] BLOOD GAS, ARTERIAL 2021-06-18 08:54:[address] [facility] SODIUM NA-STAT LAB 2021-06-18 08:54:20 [facility] 2021-06-18 08:54:[address] [facility] GLUCOSE-STAT LAB 2021-06-18 08:54:20 Max [facility] HGB/HCT (H&H) - STAT LAB 2021-06-18 08:54:[address] [facility] ECHOCARDIOGRAM, 2021-06-18 07:38:00 Russo, [facility] TRANSESOPHAGEAL [facility] REPAIR, MITRAL VALVE 2021-06-18 07:38:00 Russo, Logan Vaca [facility] REPAIR, TRICUSPID VALVE 2021-06-18 07:38:00 Russo, Logan Vaca [facility] STERNOTOMY 2021-06-18 07:38:00 Logan Russo [facility] NIMCO 2021-06-18 07:38:00 Logan Russo [facility] CBC W/PLT COUNT & AUTO 2021-06-18 05:37:00 sarah [facility] BASIC METABOLIC PANEL (7) 2021-06-18 05:37:00 R[facility] MAGNESIUM 2021-06-18 05:37:00 Ahmad [facility] PHOSPHORUS 2021-06-18 05:37:00 Ahmapamela [facility] CBC W/PLT COUNT & AUTO 2021-06-18 05:37:00 [facility] TRANSFUSE LEUKO-REDUCED 2021-06-17 23:31:00 Shiva Jeter [facility] RED BLOOD CELLS [facility] POCT-GLUCOSE METER 2021-06-17 21:28:00 [facility] HEMOGLOBIN AND HEMATOCRIT 2021-06-17 21:16:[address] [facility] CT ABDOMEN/PELVIS WITHOUT 2021-06-17 17:07:00 [facility] IV CONTRAST [facility] XR ABDOMEN / KUB 1 VIEW 2021-06-17 16:15:00 Harjeet, [facility] MAGNESIUM 2021-06-17 15:48:00 [facility] COMPREHENSIVE METABOLIC 2021-06-17 15:48:00 [facility] PANEL [facility] HEMOGLOBIN A1C 2021-06-17 15:48:00 [facility] CBC W/PLT COUNT & AUTO 2021-06-17 15:48:00 [facility] PROTHROMBIN TIME/INR 2021-06-17 15:48:00 [facility] APTT 2021-06-17 15:48:00 [facility] TYPE AND SCREEN, 2021-06-17 15:48:00 [facility] AUTOMATED [facility] CBC W/PLT COUNT & AUTO 2021-06-17 15:48:00 [facility] DIFFERENTIAL [facility] ECG 12-LEAD 2021-06-17 15:31:19 [facility] HEM[facility] INPATIENT 2021-06-17 08:22:41 Wilner Aponte [facility] CBC W/PLT COUNT & AUTO 2021-06-17 04:15:00 Roni [facility] BASIC METABOLIC PANEL (7) 2021-06-17 04:15:00 [facility] MAGNESIUM 2021-06-17 04:15:00 Ahmad [facility] PHOSPHORUS 2021-06-17 04:15:00 Ahsarah [facility] CBC W/PLT COUNT & AUTO 2021-06-17 04:15:00 Roni [facility] POCT-GLUCOSE METER 2021-06-16 23:59:00 [facility] POCT-GLUCOSE METER 2021-06-16 18:00:00 [facility] [place] CEREBRAL 4 VESSEL 2021-06-16 12:55:00 Eloy Portillo [facility] ANGIOGRAM [facility] PACEMAKER CHECK WITH 2021-06-16 10:00:06 Rosa Maria [facility] REPROGRAMMING [facility] MR BRAIN WITHOUT IV 2021-06-16 09:57:00 Ladarius Jc [facility] CONTRAST [facility] Medical nter PACEMAKER CHECK WITH 2021-06-16 09:31:48 Rosa Maria [facility] POCT-GLUCOSE METER 2021-06-16 07:18:00 [facility] CBC W/PLT COUNT & AUTO 2021-06-16 04:21:00 Ahmapamela [facility] BASIC METABOLIC PANEL (7) 2021-06-16 04:21:00 Ahmapamela [facility] MAGNESIUM 2021-06-16 04:21:00 Ahmad, [facility] PHOSPHORUS 2021-06-16 04:21:00 Ahmad, [facility] CBC W/PLT COUNT & AUTO 2021-06-16 04:21:00 Ahmad, [facility] POCT-GLUCOSE METER 2021-06-15 21:28:00 Harjeet, [facility] CTA HEART CORONARY WITH 2021-06-15 18:20:00 sarah, [facility] CALCIUM EVALUATION Medical Cente r WITHOUT FFR HEPATIC FUNCTION PANEL 2021-06-15 15:18:00 Harjeet [facility] ABORH, MANUAL 2021-06-15 05:54:00 Kelli Merrill [facility] PT/APTT 2021-06-15 04:16:00 Ahmad, [facility] CBC W/PLT COUNT & AUTO 2021-06-15 04:16:00 sarah, [facility] BASIC METABOLIC PANEL (7) 2021-06-15 04:16:00 [facility]hs[facility]ah [facility] MAGNESIUM 2021-06-15 04:16:00 Ahmad, [facility] PHOSPHORUS 2021-06-15 04:16:00 Ahmad, [facility] TYPE AND SCREEN, 2021-06-15 04:16:00 Ahmad, [facility] AUTOMATED [facility] CBC W/PLT COUNT & AUTO 2021-06-15 04:16:00 Ahmad, [facility] POCT-GLUCOSE METER 2021-06-14 11:09:00 Ladarius Jc [facility] nter POCT-GLUCOSE METER 2021-06-14 07:31:[address] [facility] Ce nter EEG 12-26 HR CONTINUOUS 2021-06-14 06:25:00 Ladarius Jc [facility] MONITORING WITH VIDEO [facility] CBC W/PLT COUNT & AUTO 2021-06-14 04:05:00 Samia Tamayo [facility] BASIC METABOLIC PANEL (7) 2021-06-14 04:05:00 Samia Tamayo [facility] MAGNESIUM 2021-06-14 04:05:00 Samia Tamayo [facility] PHOSPHORUS 2021-06-14 04:05:00 Samia Tamayo [facility] CBC W/PLT COUNT & AUTO 2021-06-14 04:05:[address] [facility] POCT-GLUCOSE METER 2021-06-13 17:10:[address] [facility] Ce nter POCT-GLUCOSE METER 2021-06-13 12:44:[address] [facility] Ce nter HEPARIN ANTIBODY 2021-06-13 11:25:00 Kavitha Almodovar [facility] EEG 12-26 HR CONTINUOUS 2021-06-13 11:06:00 Pamela Orta [facility] MONITORING WITH VIDEO Medical Ce nter IRON, TIBC, % SAT. 2021-06-13 08:28:00 [facility] Cent[facility] r FERRITIN 2021-06-13 08:28:00 Claudette Salmeron [facility] POCT-GLUCOSE METER 2021-06-13 08:27:00 Mary Kate Gracia [facility] CBC W/PLT COUNT & AUTO 2021-06-13 03:36:00 Samia Tamayo [facility] BASIC METABOLIC PANEL (7) 2021-06-13 03:36:00 Samia Tamayo [facility] MAGNESIUM 2021-06-13 03:36:00 AhakilSamia santiago [facility] PHOSPHORUS 2021-06-13 03:36:00 Samia Tamayo [facility] CBC W/PLT COUNT & AUTO 2021-06-13 03:36:00 SaenzAngel [facility] POCT-GLUCOSE METER 2021-06-13 01:48:00 Mary Kate Gracia [facility] HEMODIALYSIS INPATIENT 2021-06-12 23:02:53 Harshil [facility] POCT-GLUCOSE METER 2021-06-12 18:54:00 Mary Kate Gracia [facility] SARS-COV2/RT-PCR ([facility] & 2021-06-12 17:07:00 Martinez Ricardo [facility] REF LABS) [facility] EEG AWAKE AND DROWSY 2021-06-12 12:20:00 Kavitha Almodovar [facility] CT BRAIN WITHOUT IV 2021-06-12 08:15:00 Angel Saenz [facility] POCT-GLUCOSE METER 2021-06-12 07:20:00 Mary Kate Gracia [facility] CTA BRAIN 2021-06-12 01:53:00 Janina [facility] CTA CAROTID 2021-06-12 01:53:[address] [facility] IV 2021-06-12 01:31:00 Janina [facility] CBC W/PLT COUNT & AUTO 2021-06-12 01:07:00 Samia Tamayo [facility] HIGH SENSITIVITY TROPONIN 2021-06-12 01:07:00 Mary Kate Gracia I [facility] LACTIC ACID, VENOUS 2021-06-12 01:07:00 Mary Kate Gracia [facility] PROTHROMBIN TIME/INR 2021-06-12 01:07:00 Mary Kate Gracia [facility] CBC W/PLT COUNT & AUTO 2021-06-12 01:07:00 Patrizia Anshul Tyrel [facility] BASIC METABOLIC PANEL (7) 2021-06-12 00:49:00 Samia Tamayo I [facility] MAGNESIUM 2021-06-12 00:49:00 Samia Tamayo [facility] PHOSPHORUS 2021-06-12 00:49:00 Samia Tamayo [facility] ECG 12-LEAD 2021-06-12 00:43:57 Unknown, Hl7 [facility] ECG 12-LEAD 2021-06-12 00:43:57 Unknown, 7 [facility] ECG 12-LEAD 2021-06-12 00:40:07 Unknown, 7 [facility] ECG 12-LEAD 2021-06-12 00:39:50 Unknown, 7 [facility] ECG 12-LEAD 2021-06-12 00:39:50 Unknown, 7 [facility] POCT-GLUCOSE METER 2021-06-12 00:35:00 Mary Kate Gracia [facility] POCT-GLUCOSE METER 2021-06-11 20:12:00 Samia [facility] POCT-GLUCOSE METER 2021-06-11 16:12:00 Samia [facility] BLOOD CULTURE 2021-06-11 11:47:00 Jocelyne Alejandre [facility] POCT-GLUCOSE METER 2021-06-11 11:17:00 Samia [facility] PACEMAKER CHECK 2021-06-11 10:59:25 Hernandez James [facility] POCT-GLUCOSE METER 2021-06-11 06:33:00 [facility] BLOOD CULTURE 2021-06-11 04:03:00 Jessica John [facility] CBC W/PLT COUNT & AUTO 2021-06-11 04:03:00 Samia Tamayo [facility] BASIC METABOLIC PANEL (7) 2021-06-11 04:03:00 Samia Tamayo [facility] MAGNESIUM 2021-06-11 04:03:00 Samia Tamayo [facility] PHOSPHORUS 2021-06-11 04:03:00 AhmaSamia santiago [facility] CBC W/PLT COUNT & AUTO 2021-06-11 04:03:00 Anshul Acharya [facility] POCT-BLOOD GASES, VENOUS 2021-06-10 22:25:00 Samia [facility] POCT-SODIUM 2021-06-10 22:25:00 [facility] POCT-POTASSIUM 2021-06-10 22:25:00 [facility] POCT-HEMOGLOBIN 2021-06-10 22:25:00 [facility] POCT-HEMATOCRIT 2021-06-10 22:25:00 Samia [facility] POCT-GLUCOSE 2021-06-10 22:25:00 Samia [facility] CBC W/PLT COUNT & AUTO 2021-06-10 22:23:00 Jessica John [facility] CBC W/PLT COUNT & AUTO 2021-06-10 22:23:00 Jessica John [facility] XR CHEST 1 VIEW PORTABLE 2021-06-10 22:14:00 Jessica John [facility] / BEDSIDE [facility] BLOOD CULTURE 2021-06-10 22:08:00 Jessica John [facility] LACTIC ACID, VENOUS 2021-06-10 22:07:00 Jessica John [facility] POCT-GLUCOSE METER 2021-06-10 21:20:00 [facility] Christine [facility] HEMODIALYSIS INPATIENT 2021-06-10 17:49:00 Wilner Aponte [facility] POCT-GLUCOSE METER 2021-06-10 16:22:00 Mary Kate Gracia [facility] POCT-GLUCOSE METER 2021-06-10 11:29:00 [facility] POCT-GLUCOSE METER 2021-06-10 07:27:00 [facility] CBC W/PLT COUNT & AUTO 2021-06-10 04:36:00 Ahmad [facility] BASIC METABOLIC PANEL (7) 2021-06-10 04:36:00 Ahmad, [facility] MAGNESIUM 2021-06-10 04:36:00 Ahmad, [facility] PHOSPHORUS 2021-06-10 04:36:00 Ahmad, [facility] CBC W/PLT COUNT & AUTO 2021-06-10 04:36:00 Anshul Acharya [facility] POCT-GLUCOSE METER 2021-06-09 21:22:00 [facility] PO[facility] 2021-06-09 16:16:00 Haj-Ismail, [facility] 2D ECHO W/ DOPPLER 2021-06-09 12:21:49 Rony Shin [facility] (CW/PW/COLOR) [facility] TRANSESOPHAGEAL ECHO 2021-06-09 09:04:02 Jocelyne Alejandre [facility] POCT-GLUCOSE METER 2021-06-09 06:11:00 Haj-Ismail, [facility] CBC W/PLT COUNT & AUTO 2021-06-09 03:34:00 [facility] BASIC METABOLIC PANEL (7) 2021-06-09 03:34:00 Ahmad, [facility] MAGNESIUM 2021-06-09 03:34:00 Ahmad, [facility] PHOSPHORUS 2021-06-09 03:34:00 Ahmad, [facility] CBC W/PLT COUNT & AUTO 2021-06-09 03:34:00 Anshul Acharya [facility] POCT-GLUCOSE METER 2021-06-08 21:03:00 Nathen-Isherbert [facility] HEMODIALYSIS INPATIENT 2021-06-08 15:21:58 Jersey Costello [facility] COLOR-FLOW MAPPING 2021-06-08 13:42:[address] [facility] CONT WAVE PULSED DOPPLER 2021-06-08 13:42:25 Hill [facility] PTH, INTACT 2021-06-08 10:29:00 Jersey Costello [facility] HEPATITIS B SURFACE 2021-06-08 10:29:00 Real Delgado [facility] HEPATITIS PANEL, ACUTE 2021-06-08 10:29:00 Habernardino-Isakilil [facility] POCT-GLUCOSE METER 2021-06-08 06:59:00 Jameson Kuo [facility] CBC W/PLT COUNT & AUTO 2021-06-08 05:00:00 Roni [facility] BASIC METABOLIC PANEL (7) 2021-06-08 05:00:00 Samia Tamayo [facility] MAGNESIUM 2021-06-08 05:00:00 Roni [facility] PHOSPHORUS 2021-06-08 05:00:00 [place] [employer] [facility] PROTHROMBIN TIME/INR 2021-06-08 05:00:00 Anshul Acharya [facility] VITAMIN B12 2021-06-08 05:00:00 Anshul Acharya [facility] FERRITIN 2021-06-08 05:00:[address] [facility] IRON, TIBC, % SAT. 2021-06-08 05:00:00 Jersey Costello [facility] (WITHOUT FERRITIN) [facility] r VITAMIN D, 25-HYDROXY 2021-06-08 05:00:00 Jersey Costello [facility] CBC W/PLT COUNT & AUTO 2021-06-08 05:00:00 Anshul Acharya [facility] US ABDOMEN LIMITED 2021-06-08 04:51:00 Anshul Acharya [facility] SARS-COV2/RT-PCR ([facility] & 2021-06-07 23:43:00 Dany Angel Mikelcata dennis [facility] [facility] LABS) [facility] POCT-GLUCOSE METER 2021-06-07 23:11:00 Shiela Jameson [facility] ECG 12-LEAD 2021-06-07 23:06:38 Unknown, Hl7 [facility] ECG 12-LEAD 2021-06-07 23:06:38 Unknown, Hl7 [facility] BLOOD CULTURE 2021-06-07 21:48:00 Anshul Acharya [facility] BLOOD CULTURE 2021-06-07 21:41:00 Anshul Acharya [facility] CBC W/PLT COUNT & AUTO 2021-06-07 21:41:00 Anshul Acharya [facility] COMPREHENSIVE METABOLIC 2021-06-07 21:41:00 Anshul Acharya [facility] VANCOMYCIN LEVEL, RANDOM 2021-06-07 21:41:00 Anshul Acharya [facility] CBC W/PLT COUNT & AUTO 2021-06-07 21:41:00 Anshul Acharya [facility] XR CHEST 1 VIEW PORTABLE 2021-06-07 19:59:00 Anshul Acharya [facility] / BEDSIDE [facility] VASCULAR DIAGRAM -SCAN 2021-06-07 00:00:00 Judah Fernández [facility] CARDIAC CATH REPORT - 2021-06-07 00:00:00 ProviderJudah [facility] ARRYTHMIA IMPLANT REPORT 2021-06-07 00:00:00 Judah Fernández [facility] POCT GLUCOSE (AUTOMATED) 2021-05-22 23:19:00 [facility] POCT GLUCOSE (AUTOMATED) 2021-05-22 17:36:00 [facility] POCT GLUCOSE (AUTOMATED) 2021-05-22 13:43:00 Neil Thomas [facility] BASIC METABOLIC PANEL 2021-05-22 09:37:00 José Miguel Horn [facility] (NA, K, CL, CO2, GLUCOSE, Medica l Branch BUN, CREATININE, CA) CBC WITH DIFF 2021-05-22 09:37:00 José Miguel Horn [facility] GLUCOSE 2021-05-21 23:41:00 Ricki [facility] PROTEIN TOTAL 2021-05-21 23:41:00 Ricki [facility] LACTATE DEHYDROGENASE 2021-05-21 23:41:00 Candido [facility] TROPONIN I 2021-05-21 23:41:00 Tameka [facility] N-TERMINAL PRO-BNP 2021-05-21 23:41:00 José Miguel Horn [facility] POCT GLUCOSE (AUTOMATED) 2021-05-21 23:14:00 [facility] POCT GLUCOSE (AUTOMATED) 2021-05-21 16:58:00 [facility] 2021-05-21 13:47:00 [facility] XR CHEST 1 VW 2021-05-21 13:06:23 Gt [facility] VITAMIN B12, LEVEL 2021-05-21 12:51:00 Taina Del Real [facility] FOLATE 2021-05-21 12:51:00 Gt [facility] TROPONIN I 2021-05-21 12:51:00 Gt [facility] IRON PANEL 2021-05-21 12:51:00 Gt [facility] VITAMIN D, 25-OH 2021-05-21 12:51:00 Gt [facility] FERRITIN SERUM 2021-05-21 09:32:00 Gt [facility] TROPONIN I 2021-05-21 09:32:00 Gt [facility] HEPATIC FUNCTION PANEL 2021-05-21 09:32:[address] [facility] ([id number]) (ALB,T.PRO,BILI Medical Branch T,BU/BC,ALT,AST,ALK PHOS) BASIC METABOLIC PANEL 2021-05-21 09:32:00 Kory [facility] (NA, K, CL, CO2, GLUCOSE, Medica l Branch BUN, CREATININE, CA) DIFF CONSULT 2021-05-21 09:32:00 Gt [facility] CBC WITH DIFF 2021-05-21 09:32:00 Kory [facility] N-TERMINAL PRO-BNP 2021-05-21 09:32:[facility]OMATED) 2021-05-21 02:22:00 [facility] XR CHEST 1 VW 2021-05-20 22:21:01 Ricki [facility] POCT GLUCOSE (AUTOMATED) 2021-05-20 22:14:00 [facility] PH, BODY FLUID 2021-05-20 22:04:00 Ricki [facility] T.PROTEIN BODY FLUID 2021-05-20 22:04:00 Candido Robison [facility] BODY FLUID DIRECT COUNT 2021-05-20 22:04:00 Nemesio [facility] CYTO PLEURAL FLUID 2021-05-20 22:04:00 Candido Robison [facility] LDH TOTAL BODY FLUID 2021-05-20 22:04:00 [facility] AFB CULTURE 2021-05-20 21:50:00 Ricki [facility] BODY FLUID 2021-05-20 21:50:00 Ricki [facility] CULTURE(AEROBIC/ANAEROBIC Medica l Branch ) XR CHEST 1 VW 2021-05-20 19:13:56 Ricki [facility] POCT GLUCOSE (AUTOMATED) 2021-05-20 16:59:00 Neil Thomas [facility] POCT GLUCOSE (AUTOMATED) 2021-05-20 13:25:00 Neil Thomas [facility] LACTATE DEHYDROGENASE 2021-05-20 09:50:[address] [facility]OLIC PANEL 2021-05-20 09:50:00 Holly Redding [facility] (NA, K, CL, CO2, GLUCOSE, Medica l Branch BUN, CREATININE, CA) PROTHROMBIN TIME / INR 2021-05-20 09:50:00 [facility] 2021-05-20 09:50:00 Tameka Mcdaniels [facility] POCT GLUCOSE (AUTOMATED) 2021-05-20 01:35:00 Neil Thomas [facility] POCT GLUCOSE (AUTOMATED) 2021-05-19 23:08:00 [facility] POCT GLUCOSE (AUTOMATED) 2021-05-19 17:39:00 [facility] POCT GLUCOSE (AUTOMATED) 2021-05-19 14:04:00 [facility] BASIC METABOLIC PANEL 2021-05-19 11:24:[address] [facility] ([facility], K, CL, CO2, GLUCOSE, Medica l Branch BUN, CREATININE, CA) CBC WITH DIFF 2021-05-19 11:24:00 [facility] N-TERMINAL PRO-BNP 2021-05-19 11:24:00 Tameka Mcdaniels [facility] HEPATITIS B SURFACE 2021-05-19 03:18:00 Samantha, [facility] ANTIBODY [facility] HEPATITIS B SURFACE 2021-05-19 03:18:00 BarDylan [facility] ANTIGEN [facility] POCT GLUCOSE (AUTOMATED) 2021-05-19 03:11:00 [facility] POCT GLUCOSE (AUTOMATED) 2021-05-18 22:43:00 [facility] ([facility]OMATED) 2021-05-18 17:46:00 [facility] ([facility]OMATED) 2021-05-18 17:04:00 [facility] BASIC METABOLIC PANEL 2021-05-18 15:05:00 Holly Redding [facility] (NA, K, CL, CO2, GLUCOSE, Medica l Branch BUN, CREATININE, CA) POCT GLUCOSE (AUTOMATED) 2021-05-18 13:20:00 [facility] DISCLOSURE AND CONSENT, 2021-05-18 06:01:00 Doctor Unassigned, N o [facility] MEDICAL AND SURGICAL Name Medical [facility] PROCEDURES POCT GLUCOSE (AUTOMATED) 2021-05-17 22:51:00 William [facility] POCT GLUCOSE (AUTOMATED) 2021-05-17 17:51:00 William [facility] TRANSTHORACIC ECHO (TTE) 2021-05-17 15:04:37 [facility]ATED) 2021-05-17 14:14:00 William [facility] PHOSPHORUS 2021-05-17 10:03:00 William [facility] MAGNESIUM 2021-05-17 10:03:00 William [facility] BASIC METABOLIC PANEL 2021-05-17 10:03:00 William [facility] (NA, K, CL, CO2, GLUCOSE, Medica l Branch BUN, CREATININE, CA) CBC WITHOUT DIFF 2021-05-17 10:03:00 William [facility] N-TERMINAL PRO-BNP 2021-05-17 10:03:00 William [facility] POCT GLUCOSE (AUTOMATED) 2021-05-16 22:34:00 [facility] POCT GLUCOSE (AUTOMATED) 2021-05-16 17:41:00 [facility] POCT GLUCOSE (AUTOMATED) 2021-05-16 13:39:00 [facility] MAGNESIUM 2021-05-16 08:09:00 William [facility] TROPONIN I 2021-05-16 08:09:00 [facility]OLIC PANEL 2021-05-16 08:09:00 William [facility] (NA, K, CL, CO2, GLUCOSE, Medica l Branch BUN, CREATININE, CA) LIPID PANEL ([id number])(TOTAL 2021-05-16 08:09:00 Neil Thomas [facility] CHOLESTEROL, [facility] TRIGLYCERIDES, HDL) CBC WITHOUT DIFF 2021-05-16 08:09:00 William [facility] GLYCOSYLATED HEMOGLOBIN 2021-05-16 08:09:[facility] PHOSPHORUS 2021-05-16 02:06:00 William [facility] TROPONIN I 2021-05-16 02:06:00 William [facility] POCT GLUCOSE (AUTOMATED) 2021-05-16 02:05:00 [facility] COVID-19 (ID NOW RAPID 2021-05-15 22:31:[address] [facility] TESTING) Medical Branch LAB ONLY COVID 2021-05-15 22:31:00 Dangelo Ibrahim [facility] INTERPRETATION [facility] XR KNEE <3 VW RIGHT 2021-05-15 22:12:44 Dangelo Ibrahim [facility] CHEST PULMONARY 2021-05-15 22:00:00 Dangelo Ibrahim [facility] ANGIOGRAM Medical Branch XR CHEST 1 VW 2021-05-15 20:32:18 Dangelo [facility] LIPASE 2021-05-15 19:37:00 Ibrahim, [facility] MAGNESIUM 2021-05-15 19:37:00 Singer [facility] TROPONIN I 2021-05-15 19:37:00 Singer [facility] THYROID STIMULATING 2021-05-15 19:37:00 [facility] COMP. METABOLIC PANEL 2021-05-15 19:37:00 [facility] ([id number]) [facility] CBC WITH DIFF 2021-05-15 19:37:00 Singer [facility] GLYCOSYLATED HEMOGLOBIN 2021-05-15 19:37:00 [facility] PROTHROMBIN TIME / INR 2021-05-15 19:37:00 Singer Dangelo [facility] D-DIMER 2021-05-15 19:37:00 Singer [facility] N-TERMINAL PRO-BNP 2021-05-15 19:37:00 Dangelo Ibrahim [facility] HB ECG ROUTINE & RHYTHM 2021-05-15 19:13:17 Singer [facility] NOTICE OF PRIVACY 2021-05-15 18:55:45 Doctor Unassigned, [facility]REFUSAL FOR 2021-05-15 18:55:20 Doctor Unassigned, [facility] [place] [facility] HOSPITAL ADMISSION 2021-05-15 06:01:00 Doctor Unassigned, No [facility] Chest Single View 2019-02-17 00:00:00 [facility] Influenza Type A Antigen 2019-02-17 00:00:00 Mem orial Deary Screen Influenza Type B Antigen 2019-02-17 00:00:00 Mem orial Deary Screen Culture & Sensitivity 2019-01-25 00:00:00 Talisha Suarez Chest Pa And Lat (2 2019-01-25 00:00:00 [facility] Anaerobic Blood Culture 2018-10-09 00:00:00 Dickson Solomon Aerobic Blood Culture 2018-10-09 00:00:00 Talisha Suarez Gram Stain 2018-10-09 00:00:00 [facility] Anaerobic Culture 2018-10-09 00:00:00 [facility] Saurabh rogers Plan of Care Planned Activity Planned Date Details Comments Source Future Scheduled 2031-07-[address] [facility] colon (procedure) [code = 441144634] Future Scheduled 2031-07-[address] [facility] Test 00:00:00 [facility] colon (procedure) [code = 734985747] Future Scheduled 2031-07-[address] [facility] Test 00:00:00 [facility] colon (procedure) [code = 553741149] Future Scheduled 2031-07-[address] [facility] Test 00:00:00 [facility] colon (procedure) [code = 555226792] Future Scheduled 2031-07-[address] [facility] Test 00:00:00 [facility] colon (procedure) [code = 183732517] Future Scheduled 2031-07-[address] [facility] Test 00:00:00 [facility] colon (procedure) [code = 580853061] Future Scheduled 2031-07-[address] [facility] Test 00:00:00 [facility] colon (procedure) [code = 903574536] Future Scheduled 2031-07-[address] [facility] Test 00:00:00 [facility] colon (procedure) [code = 604189037] Future Scheduled 2031-07-[address] [facility] Test 00:00:00 [facility] colon (procedure) [code = 472745977] Future Scheduled 2031-07-[address] [facility] Test 00:00:00 [facility] colon (procedure) [code = 903958835] Future Scheduled 2023-04-[address] [facility] Test 00:00:00 [facility] cervix (procedure) [code = 599226756] Future Scheduled 2023-04-[address] [facility] Test 00:00:00 [facility] cervix (procedure) [code = 162349663] Future Scheduled 2023-04-[address] [facility] Test 00:00:00 [facility] cervix (procedure) [code = 080061944] Future Scheduled 2023-04-[address] [facility] Test 00:00:00 malignant [facility] cervix (procedure) [code = 983808205] Future Scheduled 2023-04-[address] [facility] Test 00:00:00 malignant [facility]oplasm [facility] cervix (procedure) [code = 409924435] Future Scheduled 2023-04-[address] [facility] Test 00:00:00 malignant [facility]oplasm [facility] cervix (procedure) [code = 098291605] Future Scheduled 2023-04-[address] [facility] Test 00:00:00 malignant [facility] cervix (procedure) [code = 140871140] Future Scheduled 2023-04-[address] [facility] Test 00:00:00 malignant [facility]oplasm [facility] cervix (procedure) [code = 026384599] Future Scheduled 2023-04-[address] [facility] Test 00:00:00 malignant [facility] cervix (procedure) [code = 784380058] Future Scheduled 2023-04-[address] [facility] Test 00:00:00 malignant neoplasm [facility] cervix (procedure) [code = 365143876] Future Scheduled 2023-04-[address] [facility] Test 00:00:00 malignant [facility] cervix (procedure) [code = 285302222] Future Scheduled 2023-04-[address] [facility] Test 00:00:00 malignant neoplasm [facility] cervix (procedure) [code = 612272405] Future Scheduled 2023-04-[address] [facility] Test 00:00:00 malignant [facility] cervix (procedure) [code = 062657018] Future Scheduled 2023-04-[address] [facility] Test 00:00:00 malignant neoplasm of [facility] cervix (procedure) [code = 186664208] Future Scheduled [address] [...] Future Scheduled 2021-12-11 HEPATITIS B VACCINES Met [facility] Test 12:22:17 (1 of 3 - 3-dose series) [code = HEPATITIS B VACCINES (1 of 3 - 3-dose series)] Future Scheduled 2021-12-11 COVID-19 VACCINE (#1) [facility] Test 12:22:17 [code = COVID-19 VACCINE (#1)] Future Scheduled 2021-12-11 Screening for [facility] Test 12:22:17 malignant neoplasm of cervix (procedure) [code = 225316165] Future Scheduled 2021-12-11 COLONOSCOPY SCREENING [facility] Test 12:22:17 [code = COLONOSCOPY SCREENING] Future Scheduled 2021-12-11 SHINGLES VACCINES (1 Met [facility] Test 12:22:17 of 2) [code = SHINGLES VACCINES (1 of 2)] Future Scheduled 2021-12-11 BREAST CANCER [facility] Test 12:22:17 SCREENING [code = BREAST CANCER SCREENING] Future Scheduled 2021-12-11 INFLUENZA VACCINE Method [facility] Test 12:22:17 [code = INFLUENZA VACCINE] Future Scheduled 2021-12-11 HEPATITIS B VACCINES Met [facility] Test 12:22:17 (1 of 3 - 3-dose series) [code = HEPATITIS B VACCINES (1 of 3 - 3-dose series)] Future Scheduled 2021-12-11 COVID-19 VACCINE (#1) [facility] Test 12:22:17 [code = COVID-19 VACCINE (#1)] Future Scheduled 2021-12-11 [facility] Test 12:22:17 malignant neoplasm of cervix (procedure) [code = 512971378] Future Scheduled 2021-12-11 COLONOSCOPY SCREENING [facility] Test 12:22:17 [code = COLONOSCOPY SCREENING] Future Scheduled 2021-12-11 SHINGLES VACCINES (1 Met [facility] Test 12:22:17 of 2) [code = SHINGLES VACCINES (1 of 2)] Future Scheduled 2021-12-11 BREAST CANCER [facility] Test 12:22:17 SCREENING [code = BREAST CANCER SCREENING] Future Scheduled 2021-12-11 INFLUENZA VACCINE Method [facility] Test 12:22:17 [code = INFLUENZA VACCINE] Future Scheduled 2021-12-11 HEPATITIS B VACCINES Met [facility] Test 12:22:17 (1 of 3 - 3-dose series) [code = HEPATITIS B VACCINES (1 of 3 - 3-dose series)] Future Scheduled 2021-12-11 COVID-19 VACCINE (#1) [facility] Test 12:22:17 [code = COVID-19 VACCINE (#1)] Future Scheduled 2021-12-11 Screening for [facility] Test 12:22:17 malignant neoplasm of cervix (procedure) [code = 286440589] Future Scheduled 2021-12-11 COLONOSCOPY SCREENING [facility] Test 12:22:17 [code = COLONOSCOPY SCREENING] Future Scheduled 2021-12-11 SHINGLES VACCINES (1 Met [facility] Test 12:22:17 of 2) [code = SHINGLES VACCINES (1 of 2)] Future Scheduled 2021-12-11 BREAST CANCER [facility] Test 12:22:17 SCREENING [code = BREAST CANCER SCREENING] Future Scheduled 2021-12-11 INFLUENZA VACCINE Method [facility] Test 12:22:17 [code = INFLUENZA VACCINE] Future Scheduled 2021-12-11 HEPATITIS B VACCINES Met [facility] Test 12:22:17 (1 of 3 - 3-dose series) [code = HEPATITIS B VACCINES (1 of 3 - 3-dose series)] Future Scheduled 2021-12-11 COVID-19 VACCINE (#1) [facility] Test 12:22:17 [code = COVID-19 VACCINE (#1)] Future Scheduled 2021-12-11 Screening for [facility] Test 12:22:17 malignant neoplasm of cervix (procedure) [code = 190453735] Future Scheduled 2021-12-11 COLONOSCOPY SCREENING Me [facility] Test 12:22:17 [code = COLONOSCOPY SCREENING] Future Scheduled 2021-12-11 SHINGLES VACCINES (1 Met [facility] Test 12:22:17 of 2) [code = SHINGLES VACCINES (1 of 2)] Future Scheduled 2021-12-11 BREAST CANCER [facility] Test 12:22:17 SCREENING [code = BREAST CANCER SCREENING] Future Scheduled 2021-12-11 INFLUENZA VACCINE [facility] Test 12:22:17 [code = INFLUENZA VACCINE] Future Scheduled 2021-12-03 INFLUENZA VACCINE (#1) [facility] Test 00:00:00 [code = INFLUENZA Medical Ce nter VACCINE (#1)] Future Scheduled 2021-12-03 INFLUENZA VACCINE (#1) [facility] Test 00:00:00 [code = INFLUENZA Medical Ce nter VACCINE (#1)] Future Scheduled 2021-12-02 HEPATITIS B VACCINES Met [facility] Test 19:59:35 (1 of 3 - 3-dose series) [code = HEPATITIS B VACCINES (1 of 3 - 3-dose series)] Future Scheduled 2021-12-02 COVID-19 VACCINE (#1) [facility] Test 19:59:35 [code = COVID-19 VACCINE (#1)] Future Scheduled 2021-12-02 Screening for [facility] Test 19:59:35 malignant neoplasm of cervix (procedure) [code = 156444635] Future Scheduled 2021-12-02 COLONOSCOPY SCREENING [facility] Test 19:59:35 [code = COLONOSCOPY SCREENING] Future Scheduled 2021-12-02 SHINGLES VACCINES (1 Met [facility] Test 19:59:35 of 2) [code = SHINGLES VACCINES (1 of 2)] Future Scheduled 2021-12-02 BREAST CANCER [facility] Test 19:59:35 SCREENING [code = BREAST CANCER SCREENING] Future Scheduled 2021-12-02 INFLUENZA VACCINE Method [facility] Test 19:59:35 [code = INFLUENZA VACCINE] Future Scheduled 2021-07-08 COVID-19 VACCINE (1) Met [facility] Test 18:18:56 [code = COVID-19 VACCINE (1)] Future Scheduled 2021-07-08 DIABETES: RETINAL EYE Me [facility] Test 18:18:56 EXAM [code = DIABETES: RETINAL EYE EXAM] Future Scheduled 2021-07-08 DIABETIC FOOT EXAM [facility] Test 18:18:56 [code = DIABETIC FOOT EXAM] Future Scheduled 2021-07-08 COLONOSCOPY SCREENING [facility] Test 18:18:56 [code = COLONOSCOPY SCREENING] Future Scheduled 2021-07-08 SHINGLES VACCINES (#1) [facility] Test 18:18:56 [code = SHINGLES VACCINES (#1)] Future Scheduled 2021-07-08 BREAST CANCER [facility] Test 18:18:56 SCREENING [code = BREAST CANCER SCREENING] Future Scheduled 2021-07-08 [facility] Test 18:18:56 malignant neoplasm of cervix (procedure) [code = 531569317] Future Scheduled 2021-07-08 INFLUENZA VACCINE [facility] Test 18:18:56 [code = INFLUENZA VACCINE] Future Scheduled 2021-06-26 COVID-19 VACCINE (1) Met [facility] Test 14:10:19 [code = COVID-19 VACCINE (1)] Future Scheduled 2021-06-26 DIABETES: RETINAL EYE [facility] Test 14:10:19 EXAM [code = DIABETES: RETINAL EYE EXAM] Future Scheduled 2021-06-26 DIABETIC FOOT EXAM [facility] Test 14:10:19 [code = DIABETIC FOOT EXAM] Future Scheduled 2021-06-26 COLONOSCOPY SCREENING [facility] Test 14:10:19 [code = COLONOSCOPY SCREENING] Future Scheduled 2021-06-26 SHINGLES VACCINES (#1) [facility] Test 14:10:19 [code = SHINGLES VACCINES (#1)] Future Scheduled 2021-06-26 BREAST CANCER [facility] Test 14:10:19 SCREENING [code = BREAST CANCER SCREENING] Future Scheduled 2021-06-26 [facility] Test 14:10:19 malignant neoplasm of cervix (procedure) [code = 785259084] Future Scheduled 2021-06-26 INFLUENZA VACCINE [facility] Test 14:10:19 [code = INFLUENZA VACCINE] Future Scheduled 2021-06-26 COVID-19 VACCINE (1) Met [facility] Test 14:10:19 [code = COVID-19 VACCINE (1)] Future Scheduled 2021-06-26 DIABETES: RETINAL EYE [facility] Test 14:10:19 EXAM [code = DIABETES: RETINAL EYE EXAM] Future Scheduled 2021-06-26 DIABETIC FOOT EXAM [facility] Test 14:10:19 [code = DIABETIC FOOT EXAM] Future Scheduled 2021-06-26 COLONOSCOPY SCREENING [facility] Test 14:10:19 [code = COLONOSCOPY SCREENING] Future Scheduled 2021-06-26 SHINGLES VACCINES (#1) [facility] Test 14:10:19 [code = SHINGLES VACCINES (#1)] Future Scheduled 2021-06-26 BREAST CANCER [facility] Test 14:10:19 SCREENING [code = BREAST CANCER SCREENING] Future Scheduled 2021-06-26 [facility] Test 14:10:19 malignant neoplasm of cervix (procedure) [code = 154345024] Future Scheduled 2021-06-26 INFLUENZA VACCINE [facility] Test 14:10:19 [code = INFLUENZA VACCINE] Future Scheduled 2021-06-26 COVID-19 VACCINE (1) Met [facility] Test 14:10:19 [code = COVID-19 VACCINE (1)] Future Scheduled 2021-06-26 DIABETES: RETINAL EYE [facility] Test 14:10:19 EXAM [code = DIABETES: RETINAL EYE EXAM] Future Scheduled 2021-06-26 DIABETIC FOOT EXAM [facility] Test 14:10:19 [code = DIABETIC FOOT EXAM] Future Scheduled 2021-06-26 COLONOSCOPY SCREENING [facility] Test 14:10:19 [code = COLONOSCOPY SCREENING] Future Scheduled 2021-06-26 SHINGLES VACCINES (#1) [facility] Test 14:10:19 [code = SHINGLES VACCINES (#1)] Future Scheduled 2021-06-26 BREAST CANCER [facility] Test 14:10:19 SCREENING [code = BREAST CANCER SCREENING] Future Scheduled 2021-06-26 Screening for [facility] Test 14:10:19 malignant neoplasm of cervix (procedure) [code = 675048886] Future Scheduled 2021-06-26 INFLUENZA VACCINE [facility] Test 14:10:19 [code = INFLUENZA VACCINE] Future Scheduled 2021-06-26 COVID-19 VACCINE (1) Met [facility] Test 14:10:19 [code = COVID-19 VACCINE (1)] Future Scheduled 2021-06-26 DIABETES: [facility]AL [facility] 14:10:19 EXAM [code = DIABETES: RETINAL EYE EXAM] Future Scheduled 2021-06-26 DIABETIC FOOT EXAM [facility] Test 14:10:19 [code = DIABETIC FOOT EXAM] Future Scheduled 2021-06-26 COLONOSCOPY SCREENING [facility] Test 14:10:19 [code = COLONOSCOPY SCREENING] Future Scheduled 2021-06-26 SHINGLES VACCINES (#1) M [facility] Test 14:10:19 [code = SHINGLES VACCINES (#1)] Future Scheduled 2021-06-26 BREAST CANCER [facility] Test 14:10:19 SCREENING [code = BREAST CANCER SCREENING] Future Scheduled 2021-06-26 Screening for [facility] Test 14:10:19 malignant neoplasm of cervix (procedure) [code = [id number]] Future Scheduled 2021-06-26 INFLUENZA VACCINE [facility] Test 14:10:19 [code = INFLUENZA VACCINE] Future Scheduled 2021-06-26 COVID-19 VACCINE (1) Met [facility] Test 14:10:19 [code = COVID-19 VACCINE (1)] Future Scheduled 2021-06-26 DIABETES: RETINAL EYE [facility] Test 14:10:19 EXAM [code = DIABETES: RETINAL EYE EXAM] Future Scheduled 2021-06-26 DIABETIC FOOT EXAM [facility] Test 14:10:19 [code = DIABETIC FOOT EXAM] Future Scheduled 2021-06-26 COLONOSCOPY SCREENING [facility] Test 14:10:19 [code = COLONOSCOPY SCREENING] Future Scheduled 2021-06-26 SHINGLES VACCINES (#1) M [facility] Test 14:10:19 [code = SHINGLES VACCINES (#1)] Future Scheduled 2021-06-26 BREAST CANCER [facility] Test 14:10:19 SCREENING [code = BREAST CANCER SCREENING] Future Scheduled 2021-06-26 Screening for [facility] Test 14:10:19 malignant neoplasm of cervix (procedure) [code = [id number]] Future Scheduled 2021-06-26 INFLUENZA VACCINE [facility] Test 14:10:19 [code = INFLUENZA VACCINE] Future Scheduled 2021-06-26 COVID-19 VACCINE (1) Met [facility] Test 14:10:19 [code = COVID-19 VACCINE (1)] Future Scheduled 2021-06-26 DIABETES: RETINAL EYE [facility] Test 14:10:19 EXAM [code = DIABETES: RETINAL EYE EXAM] Future Scheduled 2021-06-26 DIABETIC FOOT EXAM [facility] Test 14:10:19 [code = DIABETIC FOOT EXAM] Future Scheduled 2021-06-26 COLONOSCOPY SCREENING [facility] Test 14:10:19 [code = COLONOSCOPY SCREENING] Future Scheduled 2021-06-26 SHINGLES VACCINES (#1) M [facility] Test 14:10:19 [code = SHINGLES VACCINES (#1)] Future Scheduled 2021-06-26 BREAST CANCER [facility] Test 14:10:19 SCREENING [code = BREAST CANCER SCREENING] Future Scheduled 2021-06-26 Screening for [facility] Test 14:10:19 malignant neoplasm of cervix (procedure) [code = [id number]] Future Scheduled 2021-06-26 [facility]ENZA VACCINE [facility] Test 14:10:19 [code = INFLUENZA VACCINE] Future Scheduled 2021-06-26 COVID-19 VACCINE (1) Met [facility] Test 14:10:19 [code = COVID-19 VACCINE (1)] Future Scheduled 2021-06-26 DIABETES: RETINAL EYE [facility] Test 14:10:19 EXAM [code = DIABETES: RETINAL EYE EXAM] Future Scheduled 2021-06-26 DIABETIC FOOT EXAM [facility] Test 14:10:19 [code = DIABETIC FOOT EXAM] Future Scheduled 2021-06-26 COLONOSCOPY SCREENING [facility] Test 14:10:19 [code = COLONOSCOPY SCREENING] Future Scheduled 2021-06-26 SHINGLES VACCINES (#1) M [facility] Test 14:10:19 [code = SHINGLES VACCINES (#1)] Future Scheduled 2021-06-26 BREAST CANCER [facility] Test 14:10:19 SCREENING [code = BREAST CANCER SCREENING] Future Scheduled 2021-06-26 Screening for [facility] Test 14:10:19 malignant neoplasm of cervix (procedure) [code = [id number]] Future Scheduled 2021-06-26 INFLUENZA VACCINE [facility] Test 14:10:19 [code = INFLUENZA VACCINE] Future Scheduled 2021-06-26 COVID-19 VACCINE (1) Met [facility] Test 14:10:19 [code = COVID-19 VACCINE (1)] Future Scheduled 2021-06-26 DIABETES: RETINAL EYE [facility] Test 14:10:19 EXAM [code = DIABETES: RETINAL EYE EXAM] Future Scheduled 2021-06-26 DIABETIC FOOT EXAM [facility] Test 14:10:19 [code = DIABETIC FOOT EXAM] Future Scheduled 2021-06-26 COLONOSCOPY SCREENING [facility] Test 14:10:19 [code = COLONOSCOPY SCREENING] Future Scheduled 2021-06-26 SHINGLES VACCINES (#1) M [facility] Test 14:10:19 [code = SHINGLES VACCINES (#1)] Future Scheduled 2021-06-26 BREAST CANCER [facility] Test 14:10:19 SCREENING [code = BREAST CANCER SCREENING] Future Scheduled 2021-06-26 Screening for [facility] Test 14:10:19 malignant neoplasm of cervix (procedure) [code = 702991829] Future Scheduled 2021-06-26 INFLUENZA VACCINE [facility] Test 14:10:19 [code = INFLUENZA VACCINE] Future Scheduled 2021-06-26 COVID-19 VACCINE (1) Met [facility] Test 14:10:19 [code = COVID-19 VACCINE (1)] Future Scheduled 2021-06-26 DIABETES: RETINAL EYE [facility] Test 14:10:19 EXAM [code = DIABETES: RETINAL EYE EXAM] Future Scheduled 2021-06-26 DIABETIC FOOT EXAM [facility] Test 14:10:19 [code = DIABETIC FOOT EXAM] Future Scheduled 2021-06-26 COLONOSCOPY SCREENING [facility] Test 14:10:19 [code = COLONOSCOPY SCREENING] Future Scheduled 2021-06-26 SHINGLES VACCINES (#1) [facility] Test 14:10:19 [code = SHINGLES VACCINES (#1)] Future Scheduled 2021-06-26 BREAST CANCER [facility] Test 14:10:19 SCREENING [code = BREAST CANCER SCREENING] Future Scheduled 2021-06-26 Screening for [facility] Test 14:10:19 malignant neoplasm of cervix (procedure) [code = 812348571] Future Scheduled 2021-06-26 INFLUENZA VACCINE [facility] Test 14:10:19 [code = INFLUENZA VACCINE] Future Scheduled 2021-06-[address] [facility] Test 00:00:00 (procedure) [code = Medical Center [id number]] Future Scheduled 2021-06-[address] [facility] Test 00:00:00 (procedure) [code = [facility] [id number]] Future Scheduled 2021-06-[address] [facility] Test 00:00:00 (procedure) [code = [facility] [id number]] Future Scheduled 2021-06-[address] [facility] Test 00:00:00 (procedure) [code = [facility] [id number]] Future Scheduled 2021-06-[address] [facility] Test 00:00:00 (procedure) [code = [facility] [id number]] Future Scheduled 2021-06-[address] [facility] Test 00:00:00 (procedure) [code = [facility] [id number]] Future Scheduled 2021-06-[address] [facility] Test 00:00:00 (procedure) [code = [facility] [id number]] Future Scheduled 2021-06-[address] [facility] Test 00:00:00 (procedure) [code = [facility] [id number]] Future Scheduled 2021-06-[address] [facility] Test 00:00:00 (procedure) [code = [facility] [id number]] Future Scheduled 2021-06-[address] [facility] Test 00:00:00 (procedure) [code = [facility] [id number]] Future Scheduled 2021-06-[address] [facility] Test 00:00:00 (procedure) [code = [facility] [id number]] Future Scheduled 2021-06-[address] [facility] Test 00:00:00 (procedure) [code = [facility] [id number]] Future Scheduled 2021-06-[address] [facility] Test 00:00:00 (procedure) [code = Medical Center [id number]] Future Scheduled 2021-06-[address] [facility] Test 00:00:00 (procedure) [code = Medical Center [id number]] Future Scheduled 2021-06-10 COVID-19 VACCINE (1) Met [facility] Test 17:58:22 [code = COVID-19 VACCINE (1)] Future Scheduled 2021-06-10 DIABETES: RETINAL EYE Me [facility] Test 17:58:22 EXAM [code = DIABETES: RETINAL EYE EXAM] Future Scheduled 2021-06-10 DIABETIC FOOT EXAM [facility] Test 17:58:22 [code = DIABETIC FOOT EXAM] Future Scheduled 2021-06-10 COLONOSCOPY SCREENING [facility] Test 17:58:22 [code = COLONOSCOPY SCREENING] Future Scheduled 2021-06-10 SHINGLES VACCINES (#1) [facility] Test 17:58:22 [code = SHINGLES VACCINES (#1)] Future Scheduled 2021-06-10 BREAST CANCER [facility] Test 17:58:22 SCREENING [code = BREAST CANCER SCREENING] Future Scheduled 2021-06-10 Screening for [facility] Test 17:58:22 malignant neoplasm of cervix (procedure) [code = 988251823] Future Scheduled 2021-06-10 INFLUENZA VACCINE [facility] Test 17:58:22 [code = INFLUENZA VACCINE] Future Scheduled 2021-05-12 COVID-19 VACCINE (1) Met [facility] Test 00:12:28 [code = COVID-19 VACCINE (1)] Future Scheduled 2021-05-12 DIABETES: RETINAL EYE [facility] Test 00:12:28 EXAM [code = DIABETES: RETINAL EYE EXAM] Future Scheduled 2021-05-12 DIABETIC FOOT EXAM [facility] Test 00:12:28 [code = DIABETIC FOOT EXAM] Future Scheduled 2021-05-12 COLONOSCOPY SCREENING [facility] Test 00:12:28 [code = COLONOSCOPY SCREENING] Future Scheduled 2021-05-12 SHINGLES VACCINES (#1) [facility] Test 00:12:28 [code = SHINGLES VACCINES (#1)] Future Scheduled 2021-05-12 BREAST CANCER [facility] Test 00:12:28 SCREENING [code = BREAST CANCER SCREENING] Future Scheduled 2021-05-12 [facility] Test 00:12:28 malignant neoplasm of cervix (procedure) [code = 410079028] Future Scheduled 2021-05-12 INFLUENZA VACCINE Method ist [...] Future Scheduled 2021-02-11 COVID-19 VACCINE (1) Met [facility] Test 13:55:42 [code = COVID-19 VACCINE (1)] Future Scheduled 2021-02-11 DIABETES: RETINAL EYE Me [facility] Test 13:55:42 EXAM [code = DIABETES: RETINAL EYE EXAM] Future Scheduled 2021-02-11 DIABETIC FOOT EXAM [facility] Test 13:55:42 [code = DIABETIC FOOT EXAM] Future Scheduled 2021-02-11 COLONOSCOPY SCREENING [facility] Test 13:55:42 [code = COLONOSCOPY SCREENING] Future Scheduled 2021-02-11 SHINGLES VACCINES (#1) [facility] Test 13:55:42 [code = SHINGLES VACCINES (#1)] Future Scheduled 2021-02-11 BREAST CANCER [facility] Test 13:55:42 SCREENING [code = BREAST CANCER SCREENING] Future Scheduled 2021-02-11 Screening for [facility] Test 13:55:42 malignant neoplasm of cervix (procedure) [code = 721051513] Future Scheduled 2021-02-11 INFLUENZA VACCINE [facility] Test 13:55:42 [code = INFLUENZA VACCINE] [...] 00:00:00 measurement Medical Center (procedure) [code = 86023115] Future Scheduled 2020-08-[address] [facility] (procedure) [code = 01980653] Future Scheduled 2020-08-[address] [facility] 00:[facility]:00 measurement Medical Center (procedure) [code = 51446102] Future Scheduled 2020-08-[address] [facility] 00:00:00 measurement Medical Center (procedure) [code = 42659772] Future Scheduled 2020-08-[address] [facility] 00:00:00 measurement Medical Center (procedure) [code = 97038195] Future Scheduled 2020-08-[address] [facility] Test 00:00:00 measurement Medical Center (procedure) [code = 34731494] Future Scheduled 2020-08-[address] [facility] 00:00:00 measurement Medical Center (procedure) [code = 53506441] Future Scheduled 2020-08-[address] [facility] Test 00:00:00 measurement Medical Center (procedure) [code = 50294741] Future Scheduled 2020-08-[address] [facility] 00:00:00 measurement Medical Center (procedure) [code = 39905373] Future Scheduled 2020-08-[address] [facility] Test 00:00:00 measurement Medical Center (procedure) [code = 42055519] Future Scheduled 2020-08-[address] [facility] Test 00:00:00 measurement Medical Center (procedure) [code = 16142498] Future Scheduled 2020-08-[address] [facility] Test 00:00:00 measurement Medical Center (procedure) [code = 97845359] Future Scheduled 2020-08-[address] [facility] Test 00:00:00 measurement Medical Center (procedure) [code = 05495862] Future Scheduled 2020-08-[address] [facility] Test 00:00:00 measurement Medical Center (procedure) [code = 64130520] Future Scheduled 2019-11-[address] [facility] Test 00:00:00 [facility]oplasm of [facility] breast (procedure) [code = 677756106] Future Scheduled 2019-11-[address] [facility] Test 00:00:00 [facility] breast (procedure) [code = 765649877] Future Scheduled 2019-11-[address] [facility] Test 00:00:00 [facility] breast (procedure) [code = 129592912] Future Scheduled 2019-11-[address] [facility] Test 00:00:00 [facility] breast (procedure) [code = 837964683] Future Scheduled 2019-11-[address] [facility] Test 00:00:00 [facility] breast (procedure) [code = 767612596] Future Scheduled 2019-11-[address] [facility] Test 00:00:00 [facility] breast (procedure) [code = 679912849] Future Scheduled 2019-11-[address] [facility] Test 00:00:00 [facility] breast (procedure) [code = 217340985] Future Scheduled 2019-11-[address] [facility] Test 00:00:00 [facility] breast (procedure) [code = 452826645] Future Scheduled 2019-11-[address] [facility] Test 00:00:00 malignant [facility]oplasm of [facility] breast (procedure) [code = 111280449] Future Scheduled 2019-11-[address] [facility] Test 00:00:00 [facility] of [facility] breast (procedure) [code = 127637960] Future Scheduled 2019-11-[address] [facility] Test 00:00:00 [facility] breast (procedure) [code = 510853776] Future Scheduled 2019-11-[address] [facility] Test 00:00:00 [facility] breast (procedure) [code = 901512288] Future Scheduled 2019-11-[address] [facility] Test 00:00:00 [facility] breast (procedure) [code = 422804023] Future Scheduled 2019-11-[address] [facility] Test 00:00:00 [facility] of [facility] breast (procedure) [code = 097668056] Future Scheduled 2018-06-[address] [...] 00:00:00 examination Medical Center (regime/therapy) [code = 185640314] Future Scheduled 1967-09-05 Urine screening for [facility] Test 00:00:00 protein (procedure) Medical Center [code = 195454121] Future Scheduled 1967-09-[address] DI[address] EXAM [facility] Test 00:00:00 [code = DIABETIC EYE Medical Center EXAM] Future Scheduled 1967-09-[address] [facility] Test 00:00:00 examination Medical Center (regime/therapy) [code = 311959570] Future Scheduled 1967-09-05 Urine screening for [facility] Test 00:00:00 protein (procedure) Medical Center [code = 386181722] Future Scheduled 1967-09-[address] DI[address]YE EXAM [facility] Test 00:00:00 [code = DIABETIC EYE Medical Center EXAM] Future Scheduled 1967-09-[address] [facility] Test 00:00:00 examination Medical Center (regime/therapy) [code = 686982106] Future Scheduled 1967-09-05 Urine screening for [facility] Test 00:00:00 protein (procedure) Medical Center [code = 559839402] Future Scheduled 1967-09-[address] DIAB[address] EYE EXAM [facility] Test 00:00:00 [code = DIABETIC EYE Medical Center EXAM] Future Scheduled 1967-09-[address] [facility] Test 00:00:00 examination Medical Center (regime/therapy) [code = 533412039] Future Scheduled 1967-09-05 Urine screening for [facility] Test 00:00:00 protein (procedure) Medical Center [code = 894967911] Future Scheduled 1967-09-[address] DIAB[address] EYE EXAM [facility] Test 00:00:00 [code = DIABETIC EYE Medical Center EXAM] Future Scheduled 1967-09-[address] [facility] Test 00:00:00 examination Medical Center (regime/therapy) [code = 185740051] Future Scheduled 1967-09-05 Urine screening for [facility] Test 00:00:00 protein (procedure) Medical Center [code = 510993967] Future Scheduled 1967-09-[address] DIABETIC EYE EXAM [facility] Test 00:00:00 [code = DIABETIC EYE Medical Center EXAM] Future Scheduled 1967-09-[address] [facility] Test 00:00:00 examination Medical Center (regime/therapy) [code = 107161607] Future Scheduled 1967-09-05 Urine screening for [facility] Test 00:00:00 protein (procedure) Medical Center [code = 381201177] Future Scheduled 1967-09-[address] DIABETIC EYE EXAM [facility] Test 00:00:00 [code = DIABETIC EYE Medical Center EXAM] Future Scheduled 1967-09-[address] [facility] Test 00:00:00 examination Medical Center (regime/therapy) [code = 670258111] Future Scheduled 1967-09-05 Urine screening for [facility] Test 00:00:00 protein (procedure) Medical Center [code = 768065316] Future Scheduled 1967-09-[address] DIAB[address] EYE EXAM [facility] Test 00:00:00 [code = DIABETIC EYE Medical Center EXAM] Future Scheduled 1967-09-[address] [facility] Test 00:00:00 examination Medical Center (regime/therapy) [code = 604145891] Future Scheduled 1967-09-05 Urine screening for [facility] Test 00:00:00 protein (procedure) Medical Center [code = 860335797] Future Scheduled 1967-09-[address] DIABETIC EYE EXAM [facility] Test 00:00:00 [code = DIABETIC EYE Medical Center EXAM] Future Scheduled 1967-09-[address] [facility] Test 00:00:00 examination Medical Center (regime/therapy) [code = 142234385] Future Scheduled 1967-09-05 Urine screening for [facility] Test 00:00:00 protein (procedure) Medical Center [code = 311479238] Future Scheduled 1967-09-[address] DIABETIC EYE EXAM [facility] Test 00:00:00 [code = DIABETIC EYE Medical Center EXAM] Future Scheduled 1967-09-[address] [facility] Test 00:00:00 examination Medical Center (regime/therapy) [code = 073666000] Future Scheduled 1967-09-05 Urine screening for [facility] Test 00:00:00 protein (procedure) Medical Center [code = 366759054] Future Scheduled 1967-09-[address] DIAB[address] EYE EXAM [facility] Test 00:00:00 [code = DIABETIC EYE Medical Center EXAM] Future Scheduled 1967-09-05 Urine screening for [facility] Test 00:00:00 protein (procedure) Medical Center [code = 163873147] Future Scheduled 1967-09-[address] DIABETIC EYE EXAM [facility] Test 00:00:00 [code = DIABETIC EYE Medical Center EXAM] Future Scheduled 1967-09-05 Urine screening for [facility] Test 00:00:00 protein (procedure) Medical Center [code = 532929263] Future Scheduled 1967-09-[address] DIABETIC EYE EXAM [facility] Test 00:00:00 [code = DIABETIC EYE Medical Center EXAM] Future Scheduled 1967-09-[address] [facility] Test 00:00:00 examination Medical Center (regime/therapy) [code = 386409686] Future Scheduled 1967-09-05 Urine screening for [facility] Test 00:00:00 protein (procedure) Medical Center [code = 697985917] Future Scheduled 1967-09-[address] DIAB[address] EYE EXAM [facility] Test 00:00:00 [code = DIABETIC EYE Medical Center EXAM] Future Scheduled 1967-09-[address] [facility] Test 00:00:00 examination Medical Center (regime/therapy) [code = 309786753] Future Scheduled 1967-09-05 Urine screening for [facility] Test 00:00:00 protein (procedure) Medical Center [code = 636477836] Future Scheduled [address] [facility] Test 00:00:00 malignant neoplasm of [facility] Center colon (procedure) [code = 885442289] Future Scheduled [address] [facility] Test 00:00:00 [facility] colon (procedure) [code = 140639028] Future Scheduled [address] [facility] Test 00:00:00 malignant [facility]oplasm [facility] colon (procedure) [code = 292672758] Future Scheduled [address] [facility] Test 00:00:00 (combo) [code = CT Medical C enter Colonography (combo)] Future Scheduled [address] [facility] Test 00:00:00 [facility] colon (procedure) [code = 781818980] Future Scheduled [address] [facility] Test 00:00:00 [facility] colon (procedure) [code = 133920670] Future Scheduled [address] [facility] Test 00:00:00 [facility] of [facility] colon (procedure) [code = 455118473] Future Scheduled [address] [facility] Test 00:00:00 malignant [facility]oplasm of [facility] colon (procedure) [code = 618411140] Future Scheduled 1957 Sigmoidoscopy [facility] Future Scheduled [address] [facility] 00:00:00 (combo) [code = CT Medical C enter Colonography (combo)] Future Scheduled [address] [facility] Test 00:00:00 [facility] colon (procedure) [code = 914187307] Future Scheduled [address] [facility] 00:00:00 [facility] of [facility] colon (procedure) [code = 562305931] Future Scheduled [address] [facility] Test 00:00:00 [facility]oplasm of [facility] colon (procedure) [code = 573922774] Future Scheduled [address] [facility] 00:00:00 malignant [facility]oplasm of [facility] colon (procedure) [code = 301384528] Future Scheduled 1957 [facility]oscopy [facility] Future Scheduled [address] [facility] 00:00:00 (combo) [code = CT Medical C enter Colonography (combo)] Future Scheduled [address] [facility] Test 00:00:00 malignant [facility] of [facility] colon (procedure) [code = 149045937] Future Scheduled [address] [facility] Test 00:00:00 malignant [facility]oplasm of [facility] colon (procedure) [code = 337973695] Future Scheduled [address] [facility] Test 00:00:00 malignant [facility]oplasm of [facility] colon (procedure) [code = 544811493] Future Scheduled [address] [facility] Test 00:00:00 [facility] of [facility] colon (procedure) [code = 495293919] Future Scheduled 1957 S[facility]oscopy [facility] Future Scheduled [address] [facility] 00:00:00 (combo) [code = CT Medical C enter Colonography (combo)] Future Scheduled [address] [facility] Test 00:00:00 [facility] colon (procedure) [code = 840158937] Future Scheduled [address] [facility] Test 00:00:00 malignant [facility]oplasm of [facility] colon (procedure) [code = 233850262] Future Scheduled [address] [facility] Test 00:00:00 malignant [facility]oplasm of [facility] colon (procedure) [code = 147616783] Future Scheduled [address] [facility] Test 00:00:00 [facility] of [facility] colon (procedure) [code = 193116086] Future Scheduled 1957 S[facility]oidoscopy [facility] Cent[facility] Future Scheduled [address] [facility] 00:00:00 (combo) [code = CT Medical C enter Colonography (combo)] Future Scheduled [address] [facility] Test 00:00:00 malignant [facility]oplasm of [facility] colon (procedure) [code = 806370327] Future Scheduled [address] [facility] 00:00:00 [facility] of [facility] colon (procedure) [code = 813384178] Future Scheduled 1957 Sigmoidoscopy [facility]] [facility] Cent[facility] Future Scheduled [address] [facility] 00:00:00 (combo) [code = CT Medical C enter Colonography (combo)] Future Scheduled [address] [facility] Test 00:00:00 malignant [facility] of [facility] colon (procedure) [code = 095255212] Future Scheduled [address] [facility] 00:00:00 malignant [facility]oplasm of [facility] Center colon (procedure) [code = 061185851] Future Scheduled 1957 S[facility]oidoscopy [facility] [address] [facility] 00:00:00 (combo) [code = CT Medical C enter Colonography (combo)] Future Scheduled [address] [facility] malignant neoplasm [facility] colon (procedure) [code = 569634755] Future Scheduled [address] [facility] 00:[facility]:00 malignant neoplasm [facility] colon (procedure) [code = 755502342] Future Scheduled 1957 Sigmoidoscopy [facility]code [facility] [address] [facility] 00:00:00 (combo) [code = CT Medical C enter Colonography (combo)] Future Scheduled [address] [facility] 00:[facility]:00 malignant neoplasm [facility] colon (procedure) [code = 959664956] Future Scheduled [address] [facility] 00:00:00 malignant ne[facility] colon (procedure) [code = 174522247] Future Scheduled 1957 [facility]igmoidoscopy [facility]code [facility] S[facility]oscopy] Medical Cente r Future Scheduled [address] [facility] 00:00:00 (combo) [code = CT Medical C enter Colonography (combo)] Future Scheduled [address] [facility] 00:00:00 malignant neoplasm [facility] colon (procedure) [code = 275858171] Future Scheduled [address] [facility] 00:00:00 malignant neoplasm of [facility] Center colon (procedure) [code = 456254632] Future Scheduled 1957 Sigmoidoscopy [facility]code [facility] Sigmoidoscopy] Medical Isaele r Future Scheduled [address] [facility] 00:00:00 malignant neoplasm of [facility] Center colon (procedure) [code = 247287451] Future Scheduled [address] [facility] 00:[facility]:00 malignant neoplasm of [facility] Center colon (procedure) [code = 733440453] Encounters Start End Encounter Admission Attending Care Care Encounter Source Date/Time Date/Time Type Type Clinicians Facility Department ID 2021-07-06 Inpatient EL AMROSEANNE, [facility] Surgery [id number] [facility] 14:33:12 HARSHINIE 2021-07-06 Hospital [facility] [id number] [facility] 00:00:00 Encounter [facility] 2018-09-18 Outpatient [facility] [id number] [facility] 08:26:04 2022-01-29 2022-01-29 Outpatient Nola FUENTES [facility] [id number] Univers 08:00:00 08:00:00 BRENDA nuñez o f [facility] 2022-01-11 2022-01-11 Outpatient Nola FUENTES [facility] [id number] Univers 15:40:00 15:40:00 BRENDA nuñez o f [facility] 2021-12-24 2021-12-24 Outpatient Nola HAYDEN [facility] [id number] Univers 15:40:00 15:40:00 FRACISCO nuñez [facility] 2021-12-15 2021-12-15 Orders Doctor KRZYSZTOF 1.2.840.114 [id number] Univers 00:00:00 00:00:00 Only Unassigned, DEEDEE 350.1.13.10 ity of [facility] 4.2.7.2.686 Socrates as [phone] [address] 2021-12-08 2021-12-08 Refill [facility] 1.2.840.114 [id number] Univers 00:00:00 00:00:00 Fracisco GARCIA 350.1.13.10 i [place] [phone] Ne dical NAL 044 [facility] 2021-12-08 2021-12-08 Telephone [facility] 1.2.985.843 [id number] Univers 00:00:00 00:00:00 Qiajennifer GARCIA 350.1.13.10 ity of [place] [phone] Ne dical NAL 059 [facility] 2021-11-27 2021-11-27 Outpatient ROGER KAUR [facility] [id number] Univers 15:00:00 15:00:00 ROGER ARAUJO [facility] 2021-11-24 2021-11-24 Telephone [facility] 1.2.840.114 [id number] Univers 00:00:00 00:00:00 Fracisco GARCIA 350.1.13.10 i ty of [address] [phone] Ne dical NAL 044 [facility] 2021-11-16 2021-11-16 Telephone [facility] 1.2.840.114 [id number] Univers 00:00:00 00:00:00 Fracisco GARCIA 350.1.13.10 i [place] [phone] Ne dical NAL 044 [facility] 2021-11-10 2021-11-10 Outpatient ROGER KAUR [facility] [id number] Univers 08:00:00 08:00:00 ROGER ARAUJO [facility] 2021-10-23 2021-10-23 Outpatient R DORIAN, [facility] [id number] Univers 08:20:00 08:20:[address] [facility] 2021-10-21 2021-10-21 Orders Doctor KRZYSZTOF 1.2.840.114 [id number] Univers 00:00:00 00:00:00 Only Unassigned, DEEDEE 350.1.13.10 ity [facility] 4.2.7.2.686 Socrates as [phone] [address] 2021-10-20 2021-10-20 [facility] 1.2.803.383 [id number] Univers 00:00:00 00:00:00 Brenda GARCIA 350.1.13.10 ity [facility] [place] [id number] Ne dical NAL [address] [place] [address] 2021-10-13 2021-10-13 Outpatient R ROGER ARAUJO [facility] [id number] Univers 08:40:00 08:40:00 ROGER ARAUJO [facility] 2021-09-29 2021-09-29 Outpatient R DORIAN, [facility] [id number] Univers 15:00:00 15:29:[address] [facility] 2021-09-29 2021-09-29 Office [facility] 1.2.840.114 [id number] Univers 15:00:00 15:29:27 Visit Brenda GARCIA 350.1.13.10 ity [facility] 4[place]2.7.2.[place] [phone] Ne dical NAL [address] [place] [address] 2021-09-29 2021-09-29 Outpatient R DORIAN, [facility] [id number] Univers 15:00:00 15:29:27 PAOJENNIFER savannah honorio blue [facility] 2021-09-29 2021-09-29 Office [facility] 1.2.840.114 [id number] Univers 15:00:00 15:29:27 Visit Brenda GARCIA 350.1.13.10 ity of [facility] 4.2.7.2.[place] [phone] Ne dical NAL 059 [facility] 2021-09-29 2021-09-29 Outpatient Nola FUENTES [facility] [id number] Univers 15:00:00 15:00:[address]y o f [facility] 2021-09-29 2021-09-29 Telephone [facility] 1.2.840.114 [id number] Univers 00:00:00 00:00:00 Fracisco GARCIA 350.1.13.10 i ty [place] [phone] Ne dical NAL 044 [facility] 2021-09-24 2021-09-24 Telephone [facility] 1.2.840.114 [id number] Univers 00:00:00 00:00:00 Fracisco GARCIA 350.1.13.10 i ty [place] 4[place]2.[place] [phone] Ne dical NAL 044 [facility] 2021-09-22 2021-09-22 Outpatient ROGER KAUR [facility] [id number] Univers 15:00:00 15:00:00 ROGER ARAUJO zenia [facility] 2021-09-22 2021-09-22 Outpatient ROGER KAUR [facility] [id number] Univers 15:00:00 15:00:00 ROGER ARAUJO zenia [facility] 2021-09-18 2021-09-18 Orders Doctor KRZYSZTOF 1.2.840.114 [id number] Univers 00:00:00 00:00:00 Only Unassigned, DEEDEE 350.1.13.10 ity of [place] [facility] 4.2.7.2.686 Socrates as [phone] [address] 2021-09-17 2021-09-17 Telephone [facility] 1.2.840.114 9 [id number] Univers 00:00:00 00:00:00 Fracisco GARCIA 350.1.13.10 i [place] [phone] Ne dical NAL [address] [place] [address] 2021-09-17 2021-09-17 Telephone [facility] 1.2.840.114 [id number] Univers 00:00:00 00:00:00 Fracisco GARCIA 350.1.13.10 i ty of [place] 4.2.7.2.[place] [phone] Ne dical NAL [address] [place] [address] 2021-09-14 2021-09-14 Telephone [facility] 1.2.840.114 [id number] Univers 00:00:00 00:00:00 Fracisco GARCIA 350.1.13.10 i ty of [facility] 4.2.7.2.[place] [phone] Ne dicor NAL [address] [place] [address] 2021-09-14 2021-09-14 Telephone [facility] 1.2.840.114 [id number] Univers 00:00:00 00:00:00 Fracisco GARCIA 350.1.13.10 i ty of [facility] 4.2.7.2.[place] [phone] [facility] NAL [address] [place] [address] 2021 2021 [facility]patient [facility] [id number] [facility] 10:00:00 12:16:20 FRACISCO nuñez [facility] 2021 2021 Office [facility] 1.2.840.114 [id number] [facility] 10:00:00 12:16:20 Visit Fracisco GARCIA 350.1.13.10 i ty of [facility] 4.2.7.2.[place] [phone] Ne dicor NAL [address] [place] [address] 2021 2021 Office [facility] 1.2.840.114 [id number] [facility] 10:00:00 12:16:20 Visit Fracisco GARCIA 350.1.13.10 i ty of [facility] 4.2.7.2.[place] [phone] [address] 2021 2021 Office [facility] 1.2.840.114 [id number] Univers 10:00:00 12:16:20 Visit Fracisco GARCIA 350.1.13.10 i ty of [facility] 4.2.7.2.[place] [phone] [address] 2021 2021 Outpatient R [facility] [id number] Univers 10:00:00 12:16:20 FRACISCO zenia [facility] 2021 2021 Patient Service Representative Lab, Ang - Db [facility] 1.2.840.1 14 [id number] Univers 10:45:00 11:00:00 Visit Jersoncata Adele [facility] 350.1.13.10 ity of [place] 4.2.7.2.686 Socrates as SUAD?BLEA [phone] [address] OFFICE [facility] 2021 2021 Outpatient R [facility] [id number] Univers 10:00:00 10:00:00 FRACISCO nuñez [facility] 2021 2021 Telephone [facility] 1.2.840.114 [id number] Univers 00:00:00 00:00:00 Fracisco GARCIA 350.1.13.10 i ty of [facility] 4.2.7.2.[place] [phone] [address] 2021 2021 Telephone [facility] 1.2.840.114 [id number] Univers 00:00:00 00:00:00 Fracisco GARCIA 350.1.13.10 i ty of [facility] 4.2.7.2.[place] [phone] [address] 2021 2021 Telephone [facility] 1.2.840.114 9 [id number] Univers 00:00:00 00:00:00 Fracisco GARCIA 350.1.13.10 i ty of [place] [id number] Ne dical NAL 044 [facility] 2021 2021 Patient Mendez [facility] 1.2.840.114 [id number] Univers 00:00:00 00:00:00 Outreach Jami Guevara RADHA 350.1.13.10 ity of [place] [phone] [address] 2021 2021 Telephone [facility] 1.2.840.114 9 [id number] Univers 00:00:00 00:00:00 Fracisco GARCIA 350.1.13.10 i ty of [place] 4[place] [phone] Ne dicor NAL [address] [place] [address] 2021 2021 Patient Mendez [facility] 1.2.840.114 [id number] Univers 00:00:00 00:00:00 Outreach Jami Guevara RADHA 350.1.13.10 ity of [place] 4[place]2.[place] [id number] [address] 2021 2021 Telephone [facility] 1.2.840.114 9 [id number] Univers 00:00:00 00:00:00 Fracisco GARCIA 350.1.13.10 i ty [place] [phone] [address] 2021 2021 Orders Doctor KRZYSZTOF 1.2.840.114 [id number] Univers 00:00:00 00:00:00 Only Unassigned, DEEDEE 350.1.13.10 ity of [place] [facility] 4.2.7.2.686 Socrates as [phone] [address] 2021 2021 Patient [facility] 1.2.840.114 [id number] Univers 00:00:00 00:00:00 Outreach Jami GARCIA 350.1.13.10 ity of [place] 4[place] [phone] Ne adam [address] 2021-09-03 2021-09-03 Telephone [facility] 1.2.027.708 [id number] Univers 00:00:00 00:00:00 Liz PRIMARY 350.1.13.10 it y of [place] [phone] [facility] [address] 2021-08-28 2021-08-28 Outpatient R NEMO [facility] [id number] Univers 16:30:00 17:19:04 ADELE ity [facility] 2021-08-28 2021-08-28 Office [facility] 1.2.840.114 [id number] Univers 16:30:00 17:19:04 Visit [facility] 350.1.13.10 it y of [facility] 4.2.7.2.686 Socrates as SUAD?BLEA [id number] [address] OFFICE [facility] 2021-08-19 2021-08-19 Telephone [facility] 1.2.840.114 [id number] Univers 00:00:00 00:00:00 Melissa PRIMARY 350.1.13.10 ity of [place] [phone] [address] 2021-08-19 2021-08-19 Telephone Aly [facility] 1.2.840.114 [id number] Univers 00:00:00 00:00:00 Melissa PRIMARY 350.1.13.10 ity of [place]7.2.[place] [phone] [facility] [address] 2021-08-19 2021-08-19 Telephone Aly [facility] 1.2.840.114 [id number] Univers 00:00:00 00:00:00 Melissa PRIMARY 350.1.13.10 ity of [place] 4[place]2.7.2.[place] [phone] Ne dical [address] 2021-08-13 2021-08-13 Telephone Billy Lu [facility] 1.2.840.114 93 [id number] Univers 00:00:00 00:00:00 Melissa PRIMARY 350.1.13.10 ity of CARE 4.2.7.2.686 Socratesa s EMYON [phone] Ne dical [address] 2021-08-10 2021-08-[address] [facility] [id number] [facility] 00:00:00 00:00:00 [facility] 2021-08-10 2021-08-10 Billy Medina [facility] 1.2.840.114 [id number] [facility] 00:00:00 00:00:00 Melissa PRIMARY 350.1.13.10 ity of CARE 4.2.7.2.686 Anaya s ISADORA [phone] Ne dical [address] 2021-08-07 2021-08-07 Outpatient SHASHANK MENDIOLA, [facility] [id number] [facility] 00:00:00 00:00:00 NADYA 2021-07-28 2021-07-28 Billy Medina [facility] 1.2.840.114 [id number] Univers 00:00:00 00:00:00 Melissa PRIMARY 350.1.13.10 ity of CARE 4.2.7.2.686 Socratesa s EMYON [phone] Ne dical [address] 2021-07-25 2021-07-25 Letter Neurology [facility] 1.2.033.019 [id number] Univers 00:00:00 00:00:00 (Out) HEALTH 350.1.13.10 it y of [place] 4.2.7.2.686 Socratesa s GAMING [phone] [place] [id number] OFFICE BUILDING 2021-07-17 2021-07-17 Billy Medina [facility] 1.2.840.114 [id number] Univers 00:00:00 00:00:00 Melissa PRIMARY 350.1.13.10 ity of CARE 4.2.7.2.686 Socratesa s RICAILLION [id number] Ne dical [address] 2021-07-13 2021-07-13 Transition DAKOTA Kilpatrick 1.2.840.114 [id number] Univers 00:00:00 00:00:00 of Care Blanka [place] 350.1.13.10 i ty of [place] [phone] [facility] [address] 2021-07-13 2021-07-13 Telephone [facility] 1.2.840.114 [id number] Univers 00:00:00 00:00:00 Melissa PRIMARY 350.1.13.10 ity of [place].2.[place] [phone] Ne dical [address] 2021-07-06 2021-07-10 Inpatient [facility] NILESH [id number] Univers 20:21:00 18:16:[address] [facility] 2021-07-06 2021-07-10 [facility] Billy Lu 1.2.840.114 [id number] Univers 20:21:00 18:16:00 Encounter Melissa HERMANY 350.1.13.10 ity of [facility] 4.2.7.2.686 Socrates as [phone] [facility] [address] 2021-07-07 2021-07-07 [facility] 1.2.041.155 [id number] Univers 14:30:00 15:30:00 Joss ICAL 350.1.13.10 it y of SCIENCES 4.2.7.2.686 Socrates as BLDG [phone] [facility] [address] 2021-07-06 2021-07-06 [facility] [id number] Univers 10:30:00 10:30:[address] [facility] 2021-06-07 2021-07-[address] [facility] [id number] [facility] [address] 19:44:00 14:34:00 Encounter Jameson Kuo Nadia [facility], [facility] Tran, Luh Logan Russo Nola 2021-06-07 2021-07-04 Inpatient ER LOGAN RUSSO [facility] Surgery [id number] SLE 19:44:00 14:34:00 2021-07-03 2021-07-[address] [facility] [id number] 15:05:00 16:05:00 [facility] 2021-07-03 2021-07-[address] [facility] [id number] 14:49:00 15:35:00 Event [facility] 2021-06-30 2021-06-[address] [facility] [id number] 19:35[facility]00 22:24:00 [facility] 2021-06-26 2021-06-[address] [facility] [id number] 07:30:00 11:59:00 [facility] 2021-06-25 2021-06-[address] [facility] [id number] 23:59:59 23:59:59 Event Fadia [facility] 2021-06-18 2021-06-[address] [facility] [id number] [facility] 07:58:00 14:52:00 Event Vahid Link [facility] 2021-06-18 2021-06-[address] [facility] [id number] 08:00:00 14:45:00 [facility] 2021-06-16 2021-06-[address] [facility] [id number] 11:58:00 13:03:00 Event Robert Allen [facility] 2021-06-16 2021-06-[address] [facility] [id number] 10:30:00 12:00:00 [facility] 2021-06-09 2021-06-09 Outpatient BCM [facility] [id number] [facility] 00:00:00 23:59:00 Colleg e [facility] Medicin e 2021-06-08 2021-06-08 Committee [facility] 1.2.840.114 [id number] Univers 00:00:00 00:00:00 Review Bertrand Ivy MULTISPEC 350.1.13.10 ity of [place] [phone] [facility] [place] [address] [facility] 2021-06-07 2021-06-07 Outpatient BCM [facility] [id number] [facility] 19:44:00 23:59:00 Colleg e of Medicin e 2021-06-07 2021-06-[address] [facility] [id number] 00:00:00 00:00:00 Only [facility] 2021-06-07 2021-06-07 Travel [facility] [id number] [facility] 00:[facility] 00:00:00 [facility] 2021-05-26 2021-05-26 [facility] [id number] 00:[facility] 00:00:00 [facility] 2021-05-26 2021-05-26 Transition DAKOTA Bennett 1.2.840.114 [id number] Univers 00:00:00 00:00:00 of Care Rakan B [place] 350.1.13.10 it [place] [phone] [facility] [address] 2021-05-25 2021-05-25 Transition DAKOTA Bennett 1.2.840.114 [id number] Univers 00:00:00 00:00:00 of Care Rakan B [place] 350.1.13.10 it [place] [id number] [facility] [address] 2021-05-15 2021-05-22 [facility] [id number] Univers 13:03:00 21:15:00 [facility] 2021-05-15 2021-05-22 Hospital Dangelo Ibrahim [facility] 1.2.840.1 14 [id number] Univers 13:03:00 21:15:00 Encounter Neil Thomas 350.1.13.10 ity of [facility] 4.2.7.2.686 [facility] [phone] [place] [id number] 2021-05-15 2021-05-22 Inpatient X WILLIAM [facility] [id number] Univers 13:03:00 21:15:00 NEIL [facility] 2021-05-18 2021-05-18 Patient Mendez [facility] 1.2.840.114 [id number] Univers 00:00:00 00:00:00 Outreach Jami Guevara [facility] 350.1.13.10 i ty of [facility] 4.2.7.2.686 Socrates as SUAD?BLEA [phone] [address] MEDICAL OFFICE BUILDING 2021-05-18 2021-05-18 Telephone [facility] 1.2.840.114 [id number] Univers 00:00:00 00:00:00 Bertrand Ivy MULTISPEC 350.1.13.10 ity of [place] 4.2.7.2.686 [facility] [id number] [facility] [place] [address] [facility] 2021-05-15 2021-05-15 Office [facility] 1.2.840.114 [id number] Univers 11:00:00 12:33:54 Visit Adele [facility] 350.1.13.10 it y of [facility] 4.2.7.2.686 Socrates as SUAD?BLEA [phone] [address] MEDICAL OFFICE BUILDING 2021-05-15 2021-05-15 Outpatient Nola SMART [facility] [id number] Univers 11:00:00 12:33:54 ADELE nuñez [facility] 2021-05-15 2021-05-15 Outpatient Nola SMART [facility] [id number] Univers 11:00:00 11:00:[address] [facility] 2021-05-15 2021-05-15 [facility] 1.2.256.187 [id number] Univers 00:00:00 00:00:00 Adele HEALTH 350.1.13.10 it y of [place] 4.2.7.2.686 Socrates as SUAD?BLEA [phone] [address] OFFICE [facility] 2021-05-15 2021-05-15 [facility] 1.2.340.231 [id number] Univers 00:00:00 00:00:00 Adele HEALTH 350.1.13.10 it y of [place] 4.2.7.2.686 Socrates as SUAD?BLEA [phone] [address] OFFICE [facility] 2021-04-07 2021-04-07 Telephone [facility] 1.2.840.114 [id number] Univers 00:00:00 00:00:00 Thurston A MULTISPEC 350.1.13.10 ity of [place]2.[place].2.[place] C[place] [phone] [facility] [address] [facility] 2021-03-25 2021-03-25 Telephone [facility] 1.2.840.114 [id number] Univers 00:00:00 00:00:00 Thurston A MULTISPEC 350.1.13.10 ity of [place]2.7.2.[place] C[place] [phone] [facility] [address] [facility]INIC 2021-03-19 2021-03-19 Telephone [facility] [id number] Univers 00:00:00 00:00:00 [place] A MULTISPEC [id number] [id number] [id number] [facility] [address] [facility] 2020-08-28 2020-08-28 [facility] [id number] [facility] 00:00:00 00:00:00 Only [facility] 2020-08-28 2020-08-[address] [facility] [id number] [facility] [address] 00:00:00 00:00:00 [facility] 2020-08-06 2020-08-[address] [facility] [id number] [facility] [address] 00:00:00 00:00:00 [facility] 2020-08-06 2020-08-[address] [facility] [id number] [facility] 00:00[facility]00 00:00:00 ion [facility] 2020-08-06 2020-08-[address] [facility] [id number] [facility] [address] 00:00:00 00:00:00 [facility] 2020-08-04 2020-08-[address] [facility] [id number] [facility] 00:[facility]00 00:00:00 [facility] 2020-07-31 2020-07-31 Outpatient THOMAS WOOD [facility] [id number] [facility] 10:00:00 10:00:00 [facility] 2020-07-28 2020-07-[address] [facility] [id number] [facility] 00:00[facility]00 00:00:00 [facility] 2020-07-28 2020-07-[address] [facility] [id number] [facility] [address] 00:00:00 00:00:00 [facility] 2020-07-25 2020-07-[address] [facility] [id number] [facility] 00:00[facility]00 00:00:00 [facility] 2020-07-24 2020-07-[address] [facility] [id number] [facility] 00:[facility]00 [facility]00 [facility] [facility] 2020-07-24 2020-07-[address] [facility] [id number] [facility] [address] [facility] 00[facility]:00 ion [facility] 2020-07-24 2020-07-[address] [facility] [id number] [facility] 00:00:00 00:00:00 [facility] 2020-07-22 2020-07-22 Outpatient Nola HUBBARD [facility] [id number] Univers 09:30:00 09:30:00 [facility] 2020-04-24 2020-04-24 Outpatient Nola [facility] [id number] Univers 10:45:00 10:45:00 [facility] 2020-04-16 2020-04-16 [facility] [id number] 12:56:21 13:26:21 Visit Alanis [place] [id number] [place] [id number] [id number] [address] 2020-04-16 2020-04-16 Outpatient R AMERICA [facility] [id number] Univers 13:15:00 13:15:00 ALANIS [facility] 2019-02-18 2019-02-[address] [id number] Memoria 03:46:00 22:27:00 Inpatient r Fel[facility] l [facility] 2019-01-26 2019-01-[address] [id number] [facility]oria 01:39:00 06:10:00 Emergency r [facility] EMERGENCY DEPT 2018-10-09 2018-10-[address] [id number] Memoria 09:44:00 21:45:00 Inpatient r [facility] [address] [place] Patsy 2018-01-22 2018-01-22 Emergency E MHSE MHSE 7532 16:17:00 16:17:[address] [facility] Results Test Description Test Time Test Comments Results Result Comments Source AFB culture + smear (non-sputum) 2021-08-07 10:55:07 Test Item Value Reference Range Interpretation Comme nts Result (test code = 6463-4) No acid-fast bacilli isolated in 42 day s AFB Smear (test code = 28313-6) No acid [facility]illi [facility]2021-08-07 10:55:07 Test Item Value Reference Range Interpretation Comments Result (test code = No acid-fast bacilli 6463-4) isolated in 42 days AFB Smear (test code = No acid fast bacilli 66101-0) [facility] ([facility]-SPUTUM)2021-08-07 10:55:07 Test Item Value Reference Range Interpretation Comments CULTURE (BEAKER) (test No acid-fast bacilli code = 1095) isolated in 42 days AFB SMEAR (BEAKER) No acid fast bacilli (test code = 994) seen Fungus culture + [id number] 01:03:45 Test Item Value Reference Range Interpretation Comments Result (test code = No fungus isolated in 6463-4) 28 days Fungus Smear (test No fungi seen code = 1406) [facility] [id number] 01:03:45 Test Item Value Reference Range Interpretation Comments Result (test code = No fungus isolated in 6463-4) 28 days Fungus Smear (test No fungi seen code = 1406) [facility] + [id number] 01:03:45 Test Item Value Reference Range Interpretation Comments Result (test code = No fungus isolated in 6463-4) 28 days Fungus Smear (test No fungi seen code = 1406) [facility] + [id number] 01:03:45 Test Item Value Reference Range Interpretation Comments Result (test code = No fungus isolated in 6463-4) 28 days Fungus Smear (test No fungi seen code = 1406) [facility] + [id number] 01:03:45 Test Item Value Reference Range Interpretation Comments CULTURE (BEAKER) (test No fungus isolated in code = 1095) 28 days FUNGUS SMEAR (BEAKER) No fungi seen (test code = 1406) TISSUE [id number] 12:44:09Surgical Pathology Report Case: [id number] Authorizing Provider: Logan Russo MD Collected: 06/18/2021 11:41 AM Ordering Location: [facility] Received: 06/19/2021 03:44 PM PERIOPERATIVE SERVICES P athologist: Tom Paige MD Specimen: Mass, MITRAL VALVE MASS- for MICROBIOLOGY then pls send to Pathology Special stains for acid fast bacilli are negative. Gram stain and GMS stain highlight possible bacterial aggregates. Correlation with microbiological studies is required for further sub classification. Addendum electronically signed by Tom Paige MD on 07/09/2021 at 12:44 PMA. HEART, MITRAL VALVE, DEBRIDEMENT AND REPAIR:FIBRIN, ACUTE INFLAMMATORY AGGREGATE AND CALCIFICATION.SPECIAL STAINS FOR INFECTIOUS ORGANISMS PENDING, ADDENDUM TO FOLLOW. CORRELATION WITH MICROBIOLOGICAL STUDIES IS RECOMMENDED. Signing Pathologist Direct Phone Line: [phone] signed byTom Paige MD on 06/24/2021 at 3:29 [id number], [id number] valvePerformed.The interpretation of this case included the use of immunohistochemistry or special stains.PRASHANT ROMERO AND NORMA JOHNSON, AFBControl Slides Examined: In-house known positive controls were evaluated alongwith the test tissue. These control slides run alongside of the patients sample show appropriate staining. Internal positive and negative controls when available are evaluated Immunohistochemistry technical testing was performed at [facility], Pathology Laboratory where it was [...] qualified to perform high complexity clinical laboratory testing.[facility], Department of Pathology, [address] [place] [address], [facility], [address] [place] [address], [facility], [facility] of [facility], [address] [place] [address], a. Received in formalin labeled with the patient's information and "mitral valve mass" is a 1.5 cm in length by 0.3 cm in diameter orbert-pink tissue, which is submitted in toto in cassette A1.MP (resident)Tissue [id number] 09:50:09 Test Item Value Reference Range Interpretation Comments Case Report (test code Surgical Pathology = 104) Report Case: [id number] Authorizing Provider: Angela Loco Collected: 07/03/2021 03:04 PM MD Brian Ordering Location: [address] Received: 07/06/2021 09:08 AM Service Pathologist: [...] clip x 1 DIAGNOSIS (test code = y3gtaLPnGDXlt8loPDPqiU 3220) FuZzEwMzNcZnRuYmpcdWMx IHtccnRmMVxlcGljOTYwMV rgdhGzUYJvdVCfJ9Whbpjg JDkrUG2qMQ2ytXwczBOtlH EiAYRcFyEvj4bcq418bIFs a4roBNCXlpehcTk1pAjiO9 7gj4Q8WzgvT39wvUDwFUX3 XOIgVCTtxEPdMOEhXKQ0NF ZhvOGjW4bfPJAkZT6vanam ZKddUCzcIEQylSA0WFAueL YcG2JfYKQzRMqeDQDpxsb0 TyZkAb4zzONhnIzzKGxrCW JgFAXkRYhjLKJyLbAhKB0f L31AP60mWQGER4SUFRSFAF wWOBKNWW9QN5r6SBWzujDt LSAgVFVCVUxBUiBBREVOT0 4JPRPivpvqTARcMu5bF33L O11cVTPWQ8fNR7ONT5BLVH pKFoXHB9pETLnwBdmVBMCH JutoZVAlSK8dZE5LFJGMSJ lQANVQDTeKNV6MZfOJCpKF XQLFWLZKCFOWCT8GOTVbrD FyICAtICBORUdBVElWRSBG Z9XgYYwHLF6GNeKMTUHTGI TCYOWCTQEvQ1FfSIOKSLjD BN5PZEanHTXvmZXkHHTiNI FXDE4NHIMVUQeGUG8WE0QK TyOCNvzaOP4IWUZlURWIY4 BTWTpccGFyICAtICBNVUxU SVBMRSBGUkFHTUVOVFMgT0 FgUQRSVHsZEeNAIZHQD86L XHBhciAgLSAgTkVHQVRJVk MmPj0YVVqZN7ndD6LITBYt XKrTHDmUP6kYXR8CUH2JWG dUDeUZH1poyYRyRCYfnsRh vSOaODLvFLDIZE5WTUNJUz OUM1YRJsPABQHXHGqFWAPO QH0EK5e2OILzijCmUYYyDQ JULRdPBLJtVxQQB32WWoOK OW8TNCUULzODOEWxZPVOYt 5PRKqmNWTgJM5xEW8LG6MD SVZFIEZPUiBISUdILUdSQU BQRRUWW1GLCDYJUMTSRaXB DZlYB44YZsOIHVOkaj34WR O2LmIhh9F4WIF8YSDpQGVx u5zpCPVnoOHeAuKoSxHaZb YcGmvmsQRuIAIhRqPhv6vi y684iEFxt1wsYKFeGeF4uO IpHFAesMRlV133ZTFmYArw e5pqb8MfYXMbcFFnl6C7CW OFyopupZt6mMryE70pq0X9 DhyyE5haABViIGKlM4MdUQ 2gQIMxOmi6SZV0DBF9WEKp KBLdL0CcTP8lJOHrhFQcFA t6g0ndvMwlUVOjYEM6u8hz MAmrgnKvMJ6tkr6toWo6t8 xjczEgRGVmYXVsdCBQYXJh X5LmaJcjXs3ipGz2uIcvEt zsVSJ4Feu3NC4xil87kfq6 gJphAXYxymaoMnJ9UQvvMM CztgdaAUn1DTamBXYqkIP1 CHOzcTKlE9HvAJEuKH8eqf k9ODC6VYgrGLGpPpZ7OZSy tVAsRKRfyOmqKDfzm813YH A3NdDhJN4lJ9Uja5O7jE4u aXRcZGVmdGFiNzIwXGZvcm 0lhKGpNXulw1DiQVS2qrB3 yTSraDEnNDErXnW5LGldQR 8qdh72MRTcCSK6qf7jpOJy aNukufSziQXrZDriY3RxRG Jik158WONmT4BeMEEkd3S5 ooJvCiZhLQPzpPN6ljI2ZS YjDP7vxmjah1rwWYdcDCjm SDRgtlQ3fkR3PFGwaBHyY0 TyvW4iILZrMJ4fhymfa7qf GQD6TDgeZSTtMLP7EkQoLD Oeb9Uvife7DzPdo3ZylBCt IEmfF72am656DJEheeAfJ8 xwbGFpblxwbGFpblxmMFxm wiD4SRTiLBubssaaPKEaVL nmV5pqXbZuBAJkyZkwUYem w1GxESMkCAPdDeYhdUKgXN MnRef5RZQmmGCdDQRrZcPd O9bthnaxViYZJIJgj9udA4 xvxVFEgPZkV9RmBFskfcEl JVvmUVxsQRSoPNL4ND7cPX GjMBTfwa48 CPT Code(s) (test code f0arzTKuPEWwwBG1QcClTK = 3357) Ynm7diw6PymYCwgBDpRHbz tFWtnwKaqn70oHD3yL12OJ 4eHZGvIeY0AHOjmaX0Ptz0 HGSuMEDfmEHqB197e4tri1 mewpEdsFD3bSuiLMAjhcfx FaT9BHfzSYJsmkpwYQf1DX kuOZHvpRO6FNNufCLiL8Gd XEBiEB0kjef2BGW8BHmnLR EyUvU3NWAwsFIvDAIvxFmq VIxsk012KIR3WsYdZVFvka QrbXrmgN7bDjPaQAC4UGRz UHn8TBPuvw3= CLINICAL HISTORY (test c9kpgDBuXJWafOX4YfHuZD code = 3356) Ogs4gpo1VhyAIwlSHtOMml fMVvfpTfij03wXH2wC76BU 8mDVEvPjD2CKUapoK1Dso9 DANaKRBbwQNpX435y1qrm7 cupiBdsHL3XVVoOOQlP5Md DA1cMDVlrYAyG88oqLJiBC G5PNBoYLSxkWYhIPWaNHJ3 BAQhfLNkP5bvNHIwVB4epj tqBNohEBchITMhyZR6TDEb fAYmK0ZpFLBkJPiwQPJzll p8WpAvVj6cxOHmiKdlZAph YXJkXHJpMVxwbGFpblxmcz TgLQIkXZXMwk5rLPGdIzsg iWJbC9wtOZ9efXofSJA3co WzGYWpTtjyCCHrby8iJSFv VffdpUCnI8yaWW5fnPeqGA G3uZAaTJWzve2= GROSS DESCRIPTION (test d5ydeSFtCRXzyECKOJPmSw code = [id number]) jiisQiMNTybEQaJ0Kwgkmf VPzjAX8xIN8ybMlwmGDcbJ YfGV1MZJXeNeOeGZHhtHRn fvYyOfDhMYAkqRNtgAO0GR KwXN3olrkwCPhkSItxORFr ntO8ZMAerHKvF1MoUXPzVX 5etdeoAVG7NGzfnV4ynnWE NjhjSs7hjGVefDpaRaNhDu NoYXJzZXQwXGZuaWwgQXJp LYg7uT4PQckoJ93ey7R9Mi r4QVPnQDOsH2SnNL0aRDKo kYRiK84GYqfzHRO2FMSRTt qaTTHrRR5Zn2sgGJQwxLTi YXT9NTcgoBIpBQJrPNReIX b5JCCoOJionQAwFM6yeZxl BjjtqTjvc5FbvFWvVFisGO QjAEYjRXwfBGKoZD4RHlZp TRqPFovfOJzlPrN2DFn8CV FJIbKlFbNaKmwgSXO8WNml HPq3CRl8WNiYCgZ5QGI6SO LzIFlgIIBmCkvwFWx3BZCv XFxmIEFyaWFsIFxcZmwgXF kuK21khCdutO4bZS4jNX2t rZTcZUUqaO1wWJ5xW8ZagC 0uXHBhciANClxlcGljTmVz dERvYzEgDQpcbHRycGFyXG xpbjBccmluMCANClxsdHJj aFxjZjFcZnMyMCBSZWNlaX LvFARgkjUdz1JdHSzsxiIc YWJlbGVkIHdpdGggdGhlIH HndMlwjhXhH4L7nwQaYI7b XOHpREDbJ2TgNZFqE12rKF JkhX7pIUCbEQ8cXCk8ETSa JZHeBnesiP0nrLBvNLXvpK 3rJGOsF2LtRtNqg93xgDP5 ovMaDjTeRIUtuq2gwK2uGY Xovy7gOUHsu2E6TSZqk6P0 SJAfVG12OBikOS7iAKlcBM 4xIGNtLCAwLjYgeCAwLjMg qDInNeDvK18qXeDaVOrzNS LcDNBahDUnBZipWXK6Zs5r kEHxRHCluuU0e5IaQCbxYU LtTiarLCNlEArubPPzDJ5D YIDdAKfoiySsEG3NOSHsRL bfMOAdfIUZAZT7YL5tKDia iMDdacwnXMYiC7ArZ5Beez ZpxRZgBDWunbBxc1wnOEQ7 XHNsbXVsdDBcZnMxNlxwYX I4CTo4DErxYPGlO1CiC8Eg YUszVOA3NXXrYhZcUTMnYR PVQkSlTbAhPnK5Xwj7FmGu IOa2MQyaM8XEIXDpTBR5FV G8RVY9RkW2YAd0GWGSNq9i MHRdUIW6QaC1ADS6ZvU8EZ xcdCAyIFxcZiBBcmlhbCBc SXFeKBiqqjW7LDReDRQlyT jkaH0gPi1qIA3riVHoPJIo mD2iGA8yLpgbrRJkSZZrRX 1hjN0aGyurLOFoDUswULSs A51qn8BVk5LjAJ2GTEi4vm KvigorwS2wZAPlrnDeXVni rJDyS9lqX0ZkSAZkFcKiVb QtZIr8LXZnyG1mNm1vfFYt yY8ycBLhVCsyNLO6nJClAH SaJZXrXLUvUY95QNpLOASi bmFtZSwgbWVkaWNhbCByZW NvcmQgbnVtYmVyIGFuZCBc qTnuIpUmJHy3G1NmqNnuDS Jqf8vclf7xzTmeyBEya4Wp ucHnunuaBZNiUOMlv73qhC H7zgHpAdXvmGy0qIRmUSY8 VW4hbXnregutmXWqHDc7fZ JoWOQfTkSxuYica4XeLNmt LjQgeCAyLjEgeCAwLjQgY2 2jcN7gOWsrgxYnDSWpRU0v EYGmAVLyaSAsjH7dvuTusz JpcZRxmZD7IVScdJ5zlX22 gtPahyPHUW0ueRBgTI6KDF BhciANClxjZjBcZnMyMiAN ClxwbGFpblxlcGljTmVzdE WqVsWdaWjydB72XDCxeLVs GEF7SK1tRYDbhzgrGEJkYE ZfBVY9PBochV19aBDsKBAu QGNrwHGbxH3Sp1mdCXUysW NyCSD6JBuqdAByUIJsJBVl ZUogSlDgV2NLQLBuDrVxKQ T3YQWuOAl5BIj5DH2XFaRt UPPzYUWxWnN5NXZaGTp5MZ amMW5XTCO0Gdu3GWK7CQE2 NTMyOCBcXHQgMiBcXGYgQX UyZNnxIZcchFZdSU1xkKbb fvV9DCXrFHsiRVOxEIAoqD bpTSFYx1rgnnBzCRJjI2e2 S1MpQ8OaETptQv7gyBJxCN 7TMHZcyRICJKJ8JQ0hMDDV ClxsdHJwYXJcbGluMFxyaW 1cNB1ETCh3wpMqHEYtOPme plTjYXLiR2PhpiXzZEqaZL Mdyk1mhZwhMUlnKjWyAUCs c9v3vNS6vZNfsMR3fKRezU jjVaWcTU3tbYCrBA5mYFad MLnziaZwg4DtPY53lJCpuf JkoiRqPDH4ZqHvCUgeCSCi t3q0kIusR76bu57xsurhpX McNZTjXF9daV1mOsGlbhYo Z15ji4gaqSPyp5OaeUDkqG lwbGUgdGFuLXBpbmssIHBl AENvW1AhQMCdDIQet3L7JN Xnb5Q3UFOnSz95ODqjZc2m BPnmVR41GQSwQZcnGWJzQ3 ZpZ0E4RZmhXWOXtAIgl5Ix Z2pgVE9soOMwn3IlkXc4tY BlXCkhQNQpfT8yvT3xAfDe XHBhciANClxwYXIgDQpcY2 OlDKAwPmAeKRjxuLzvcH4a LCTpO27pj6OUn1CgPZLnKL rlp8cfmSmwt4DkxBFhJHsn WTMgjDFvZFfswS8iPhOmu0 xnrYz6CKdntuO2INFozx6W BghoHmeqvAhky9GviDSqEQ amPMWqXMDfRKeaEULgAU8G GuJwNMgOJaiiOKjrZeQ2OF a9BATETfAjNaQxWwbyMQC2 SqEzBUu1IKe5KQmZRqG3MA N5QOGvRmPzKYQuLnmvRMg9 IDIgXFxmIEFyaWFsIFxcZm zfUJxoZ13tWvEtVmrxyTGh foXVJjRSe5s6zPzxI53ts1 1dEBNMhcWgr9BhydEbZvwv ECJoYQchAIJuW91uk4AIt1 MnOE6AHKr9bwShaxzmlF4b TRBnccDxJMswsUVsL4lpB4 DqJIHiRdSqSuEsWFt0SXHp uP3xTa9kfKZeoL5faHRdZE hdRVU1rNPpJZRkVCIfDOKq OQ54ZYeSNCCgzeDcPKcqjI VkaWNhbCByZWNvcmQgbnVt YmVyIGFuZCBcdTgyMjAgXC u5X8SgsVmvERVcm2eblm42 trFwx3DlycIhCSYusGAxAA 4iQekpgT98EUZrQQOlZIVw vLloDVnzAoLyffEwQ09zq6 qedAZxr1FtcYTwrMavxAJw dGFuLXBpbmssIHBlZHVuY3 XsWYTeOGLly1S7ZTXuk0V1 WNQpYv7mOMtdEr1rYXooMS 34WTSmBZlkMMHoB8CdM2Z2 YNclLAZRnNGfb7RpJ3zuXQ 2ewXOqs8SehCw9fJLyUGsh YHGfgG4qwQ2xYWRcJBHgIO GyxxIKUgxrDVTiDZeRk6Of rJteRWYeE1b4q93bP6mqrG RlQJBPYCW7tDNnymGloSDo ZY7KIBUaajDRWvbuJcWmTr MyMiANClxwbGFpblxlcGlj RzAolKVkJwQgnTtcxW90YD MsaWNuVDF6LW3xJCYyumlp CUCuBMTlFSB3RJnldJ41mI VuEPFgLKSdzXAjeV7WGPJp UMH7KAgnjA61zETaYH7JJG ZeUVY8QEIpdEOaZLI8XD0s fQ0KfQ== MICROSCOPIC DESCRIPTION y5dhuMThYZZadZS0PcUpQC (test code = 3371) Lyw7wwb7ThzGHqmSSlXZtz cEMhrmNjzy66hOQ3lO01KF 4rRNXgGrM9KCQlzxW9Eoe2 CZNmJVYybHQzH187d5tix2 lvnrUrdQC7mBdmZSQdveot KpU9QQhxGTMssbqnIMn3QH baOIBqfWV3BWDvaWIrE9Xd QXXyXN5nwik0LQL9PHejPQ HcPbZ7MKQzcQPiJEHwySoe QKlkq875LFO2PhCgYFUyge FuiBzylN3qPbOeXNOWYTAm t6QeQGUvLXVcxnlnMDNyZD Bhcn0= [facility] [id number] 09:50:09 Test Item Value Reference Range Interpretation Comments Case Report (test code Surgical Pathology = 104) Report Case: [id number] Authorizing Provider: Angela Loco Collected: 07/03/2021 03:04 PM MD Brian Ordering Location: [address] Received: 07/06/2021 09:08 AM Service Pathologist: [...] clip x 1 DIAGNOSIS (test code = b1ctjDQoORAdx4ciILPhdY 3220) FuZzEwMzNcZnRuYmpcdWMx IHtccnRmMVxlcGljOTYwMV rqagJzOGYnkONxN3Zdjmuk QVmkNM4rAL4yfKfsjUPskE NzJJYyCpOyc2qmp817lQAv a7ahRBYZxpcuaHb3nKmqF4 8cz7C7ThbtS94znHSzAMA9 QJAdJRJbvASoULRnAUI9IP TghFRqG0iuNMZuAP4tuzis SRzeJIfhKTFwxVT5SDGeyQ AjT2BvZFYdQVizTJErcjq2 AeIjFa5iuMXyqPfyOQwySJ TzTGUoOGgjQYEwYgSdUY6h Y49FI37jWOVHR6LFVWUVIV vMQJLABV9KQ6c4XNQawcSk LSAgVFVCVUxBUiBBREVOT0 9IBARrsqccMQXnKu6vB28R L35gPBGHF6pQL9VRL1MCNA rKJhKHS6tVOZhcSbfVCTTQ IzdcGMGsCU2iFV9IOQVCYQ aOQHZWUApGQE4OCgZEDtCA AFGTYJGSJMATLI9HJLKajR FyICAtICBORUdBVElWRSBG M5OdXIqAPT8BCuWEUTLPRB FJMCUBVZRlJ7JfLYZOZTdP KY4PUOjrDKOeqLReNURiEQ RFBR6UNKHJJKuHMP6OU0NQ CzYWSgilHJ8CJLDdXIGET3 BTWTpccGFyICAtICBNVUxU SVBMRSBGUkFHTUVOVFMgT0 BaBXDBOAmSMgFTBLOWG93S XHBhciAgLSAgTkVHQVRJVk JiZr2KQUxLE1iqT9BZNZJx SEoBNQjLC1cEAE1OHF6JGZ dTCnDNC6tedEQrXQYrbiHh jTShYHYcNZJUYK8LACTWAy UAX3EFFwYYXBHCDFxNETVO LC1QI4c4NFCujeKsTKRlPO NLBCeORYMzUxDAG10IFpLO AR0SPJPGKwSNXGWsOPEWPd 5CGKocNNPxZU8aDB1ZB2WL SVZFIEZPUiBISUdILUdSQU GOQSZVI1WFZXDQFVRRNmJN ISnAZ67QTnRCUIBxdq67JW S1BmRmg1H5YFB0GBPtACOk h3qtTKWmrKLoSjRkWlMaIi AeObbouLGsWEYuVtArt8bh h246mDNym3wmRSPtYpB8bM KeELOczKBmC751RXTdJNbg v1fog8RaYLMwkVKmh8X4LC LYeqlzaFf6hDdkO31ar3W6 NrwjH4zsXRIkGXVgQ6OnJK 0bZDKaXqh2PXZ9WMQ7NXMo ZBAkG4WgGW9aSDPnfOPzMF b6w7eakOaoAZZoHBD2i5rx TPhmhvXvBG6sdt7zrWe5r5 xjczEgRGVmYXVsdCBQYXJh B6AkuAfhYl0zaKn7hPbbUr plRSU0Qcf1IS4tms88lji3 pSlyKTYidrglYnJ1KHzvSP MorcqnNUn5JCobDOEeeTA8 IXTjjJIcW5QrWJKkYO2njn z9NPO2ODbgNEGvIqO8WZBl vBZmITAkdQalDZkrq314WL V8OzFdGL0sP3Plg1Z6pX1d aXRcZGVmdGFiNzIwXGZvcm 8lgJQxQZreb7QkTKO4jyJ0 iPKhpHRuJGJzMxR9HYypYH 6hzs04SUPdAJG1bf9xoLUf iOeosyBuuMFdXZruJ3HkTE Mmx281QOYiU8HsYNRng1J7 ejLaMpUmJVJyiJN2hqT0AM DpDO4ngocdc6efBRrlVPip JBPqdcT1nxB1FZEflLNzL6 CoeG9eJLXyKW3shadws0zn KXA2FBkaYADvYKD0NySoIP Bne8Ezldz6RlTsc8OdsOXq HWyoM72ki865AQBvnjXiV3 xwbGFpblxwbGFpblxmMFxm ihT3YZZtLUncumfaRWDiRL xaB2fiIzWxKCFaaRodQZdu x2PxQRAbIEXoIjYimJNgEO ByOit3WLYhkRWxKIKnWiGm R1ilqgetOqYUVNLri2ruQ6 lzyQMDzGVwY5QtFTwbvyFr HFjuHJcxLGXjPNJ3IY1pCE BkIBDjfc95 CPT Code(s) (test code n6mgmEJfUSHbcNL2BkPzNQ = 3357) Ycx8otu8FpvMUdgKApCXxb sALuvkAkba37yIC3tU64GI 6xZTRyBlK6VBAchfJ4Fcl1 LZBiLUCkmIEmA998w8ozb7 epcdNhhZA5xYdlTSLjftlx IcD2ILlkDZBumoizVDr3KU fwUYNbmNE8ZVBdqIJtQ5Ie PFKdPB9bvmt2ZTG9KGxsHD PjYhK8KWXhzEUoDMGmsEls XPmdp273QDE3EpNjPLSudk TiyRifoI1hBqNfJJN1VQAr ICl6SHTjro4= CLINICAL HISTORY (test u3tnzCEbGEXsfWA4BuIkAJ code = 3356) Dcn5zij6LdrXVmxAInIOnu qBFlomJdul10xKO0iS65KC 7eZXKbZbO4OCQhrvX8Zpk1 SBGqEXMmjIUgB661r3pso5 gnngMydGS2BPUqRNFyG5Ih VN3gYRQfkIEcB25ksYEtAB G1ABOoDNFhjSLgMTTnNRN5 LZZtcSDqH8dwWMHjCL9rrf mgUPdtBZneTEKmtVR3AORi xHLsZ8CkBAMnUPebJILubf o4OtArPd8khPNauPykNAtg YXJkXHJpMVxwbGFpblxmcz QwKHKfEXJRvw4bOPBkBcdv gHQgT6opJF2elOrgZBB4yc RxQHPcKifwTCDlxs4iWHYj JwyddKXvK8shRT6jzIffLZ C6nNDxLGIoxg9= GROSS DESCRIPTION (test n5tkuHVqAYXvcTDZAORsWn code = [id number]) xgnxAjPEIjlOGuI0Nyxrba TQsxPG7uMB4jsHdikFGuaK QbWT3QPQSjEwBzRUYrgWWd ymVmLzVxHIOifLAezHJ4WA EcUK6ihrndNRqwWBjfATTo iwF2ZSMrhTIcK9TfKBJkOB 5luxhoMGB1HGqmmB5ipwFH NctiTf4whGCbsXihYcCpXp NoYXJzZXQwXGZuaWwgQXJp NFt8eZ6JIssnE44on1F0Ie r1XTOjLUMtQ6JgDZ0sYQDr aXGzS77WCnmlEWH4SPGYVm zxZRNdFC0Ta4cxIBLxwHWt UNV4FNupmMIlPCCfXXQyYJ l1IRYqWJchjTIgGS0zaPsa MrzcvJpbt2TzzCCmGDlmKU UvGDLeACluFSJhQR0SQqMe KNqHTqpiGPbfAdQ6GYm6IL FASnSgRyIiMgiqZPN2FFpg DNt8OMa4VDjHJoR3FKO5UZ VjRXjjCCSrFmifJNh9XPGf XFxmIEFyaWFsIFxcZmwgXF zsL27rtNgvqL3qDF3pWA9j jVQzNNBtgB5sBF6hR4AbrN 0uXHBhciANClxlcGljTmVz dERvYzEgDQpcbHRycGFyXG xpbjBccmluMCANClxsdHJj aFxjZjFcZnMyMCBSZWNlaX NhDRSnybXzs4SwSYjeonRa YWJlbGVkIHdpdGggdGhlIH VswAoazhWkE2I6ttFbHE5r NRJiUOTzW7DlCFMuC38rMA FbqA3wBKZuQR8gVCm2UZPb LIYmZtprtR3djOZePUCpzL 7gKGHjN5AjRlDfe53emRT3 eyCaUkSbULQvkb8ytY7nWK Ernz2qYUFyk7J0NNCmq5S4 HZPrAM57TDhbJX8uJOevAU 4xIGNtLCAwLjYgeCAwLjMg iFYpVsSdE47qYmUmXXinBR PyYMQwxGOtQMbfFID9Lv8l mREjCNNtjzQ5l2ZpYWplMO LdZkqeRLEhNAujgVJoXT7E DHXoMOgyxaLhIY9ETRWuZW gbOCMirDDGSEE4FO8kGDkk qXUxxjayRUFbQ3ImM3Nuhx FbtCBxOXZvztRra9fgLFT2 XHNsbXVsdDBcZnMxNlxwYX U9XNv5XOzsALVgF3IkQ4Nm UJtwWLD6UJZrUaWvBYDiSB CFXjIaNxHqKpV2Wuk3KzPz BMt3MXazY8LZRDOmCRM0AW O5CVU5DlT5TXj7VBLHCn2b NZFnTNI8DsE9QYA3LqC0EX xcdCAyIFxcZiBBcmlhbCBc KBQfLNjwpqB5DPYoAAGzhD jmeH3tXh1jIG4ypXKcPUBk vI1dMF9zFguyyBXqNHNlWS 1cjL5yCqaoXTAnZBbmPHXk B17ue4GPm5DsHS0WKUz1ay HbakcqeN9oHXJdpsWaQAsg hGGsT8dnY2CmXUGxHsKhQh LmXEx7SNSehW5cOz5gyBTc eL3kyIZdIRfdNBY7pRWwMW QtYGRhZHOtJP01CTsOHVWv bmFtZSwgbWVkaWNhbCByZW NvcmQgbnVtYmVyIGFuZCBc fUsnUiNzDLb7X6MjrBzdQR Goj6vbom4joDanbBGok8Bl gqCcpzaaMLTiECOeb34pwU P5zoAyDmCuzWm5qGWzFTX3 UU0haAxvvkjybHQuREl6sS OpPRDpLpGhxCavq8LeWIjs LjQgeCAyLjEgeCAwLjQgY2 0mlO3zSNwtwsOmQEBeET2b YLUsLSKyqUQzaY2zcrWjtg GsaEWlvGN8VUFaxW5txF65 duFkwzRCXA8olHYdHL5DSR BhciANClxjZjBcZnMyMiAN ClxwbGFpblxlcGljTmVzdE XkRhAheHaxqO97YDBrjDAo XHV2NV8kOGSwjmctCHMzKF QhALE4AIhgtB92bFDuLVWt WWDapMSzbH0Kg8wvEULdmB HyFBK2XKiyzOAqTTYmWINo LJnoNfIsB3VDSKMsYzJaID R7IEAkXAi4CHs2KZ6THxAu NMTbJRIdStI0VGIiLYh1IP olLG1FLFV1Aoa4UDB5XPD9 NTMyOCBcXHQgMiBcXGYgQX TpTQkrUHefhJYaEW8xzJys coZ0ZCUeTKdfEPMpMCPodD baIMMNb4clbqEaJHOdX9m5 S8AjG0ZbXGeiEt6fcAMsKX 1PSEYlqQRYSCV5YB6sUUVE ClxsdHJwYXJcbGluMFxyaW 4zCM4JGXp0nkEgSJRaDJae jwIdJNBdM4XeigNjPDcwUG Oarb0pcIasLQjmOpIjXZBh o4z0iOM0tPZmvRM7qJIzvA kpJbOqCH6jkPHaOX6eCVoy RWyygdWpt4WfVJ81mGNxxa GlovZvFYJ9ZzNdTRdsUFQu c0g3nTvzG67or78udgymsX MtZVVcWU1bmP6bCnBzxzNz B16bd2ubxVBcv5HzxDUwlK lwbGUgdGFuLXBpbmssIHBl CLVfV8KaDJZlVAVrj3C8HX Tky3S0APRfFq61VUvtRx9k EYwaOP68NZInAEjjAPPfD8 DwC5M4OEypLKNZcPJkm5Ah N3gkAK1qxZCdj1JspSj7wG ClZVdfKZZdjH6zuZ9kNhLe XHBhciANClxwYXIgDQpcY2 MiUGNqYxRoBEobhGvmzQ9k RXIjJ65na6WHs7OzQVGxIH gce9vdjJpij9VqoTLdHLtu NFDvmOItXUtlaH3cKuDcd8 arvFz7XFuvgoR4LXOiaj9W LizuArcmqVsps3YupKVkEP gqOYGvVFApITbfBBRbSQ3I VhXlCEmKLhboURbzGlS5ZX h5JPSDNkYnXbTuLczgUGC9 BnVgTUn3RRs9FOtMZjP0DN R7AKXtGjUqICYyPrzoIDe3 IDIgXFxmIEFyaWFsIFxcZm izERufY00bSuSiQjvtiSXw moACWlJJu8y1wUaaI33ws6 1sDDEXalAzl4BeycYuOfme JXRlBIfsIBLvG38my9MMy8 GhSV3NLTq6ulRcxgxktZ7w FAXzyuPtXYfbxSVgW5aeR9 WoDZLyZfEpCsEmPRx4JBQa qP7uUw4lhFWmlK0hpPUdFN kzFXU1iROrLKVfFZUaMXPw TU05LMcCJFWeplEoVYxgqG VkaWNhbCByZWNvcmQgbnVt YmVyIGFuZCBcdTgyMjAgXC e1D9PddFoqXGZbc0canh10 azAim4LtkyEcRQOstLMzJP 8vFejdnU39QHMmJMFbGZXx yUjwCJzuLuGqtoTvT70jt4 urzZFxh9DgmEJpbCoafYGn dGFuLXBpbmssIHBlZHVuY3 OtWUAySZVqv9P1JRXcv2M1 IVFnTz7zNMxsMk2mQFtdZO 55EXYcSXkqBJTzV1PdN5P0 GVdkKBVAfSUcq7VuW0ldWU 5ywWJlw5UjcRn9mQTbKIxp OGTneL3qwC4bMVXtXUPvDK KopsKMAfmvYFMaQGkAf1Nv rSkqVXFtN0j0m09iL7yulG WyPBIOKZD9tLIccvOczNQb BD4KBWRazvDFZvseMeMhZg MyMiANClxwbGFpblxlcGlj LrWwcBThFoDncEppgQ49IS RiuIEtPNY9QY6uHVQuqwom FPBpCHMxTIW1ADnzaU29kV DyGKUmCWTxkNJuuV9OXHPy XTF6NLkhoM41kVGzIJ8HXZ UdAQG8EBFfcCSuUOC0EZ9x fQ0KfQ== MICROSCOPIC DESCRIPTION w4wmzCPqPHBuzFA1PzNcFL (test code = 3371) Pxg8wle7KbfIHflUVuCMzy gLCencIohu37pJG5lD50BA 0zJSFqOeT5XTNwvfZ5Ebl5 CDIjDFZddNZgJ360s0bhv1 vuxrEbtAL2zSstBJYotbwt EeR3QHhuCPAhddgyCRg5FC rhDBJujIX7OCUniWKvC5Ud OJBmNA4bcat7KUY0JFsmFG QtFiH0NEPqgUTbXEHwsAtn BPkuk051VEP6JrMaOYGmox NihDfgtV7eXbYiDNMPPETw u1DtUGJgNRThvzmhFLUwFZ Bhcn0= [id number] 09:50:09 Test Item Value Reference Range Interpretation Comments Case Report (test code Surgical Pathology = 104) Report Case: [id number] Authorizing Provider: Angela Loco Collected: 07/03/2021 03:04 PM MD Brian Ordering Location: [address] Received: 07/06/2021 09:08 AM Service Pathologist: [...] clip x 1 DIAGNOSIS (test code = [id number] 3220) FuZzEwMzNcZnRuYmpcdWMx IHtccnRmMVxlcGljOTYwMV cqsjQiRQZscMEcE9Cdviqz CCetWY3mWU5irPameBFozP IcLCCtBcZoq8jxj881fDWl y5smUMKSsuxohYc9xChpA4 8gh9Z0MwbxP80fwVWfOLC5 DEPmMGNpaSUzSYMeLUX0MZ KxxRKsR4eeKVLgTA6ceeyl VFjjAVjoTCRmoGW8HIWonR EqY3IoXBYlAMmyEGUewde9 VaDnMt6ffIBrqGwwJIlbQP NcRAHvEIuvIUHeVzLtYA0x K31HO68vZSFPW8TKJZCTAV qWFBGJNW5RK8y2PPFplfMn LSAgVFVCVUxBUiBBREVOT0 1WZDUgmiqqEJFpQe0xD07T Q10eXPBDY8jHR8QBJ9MWVO nOZxTZG5oDADxmCgoWCCNE XyuoJJPnES5uNT3VCUJBGX tGDLSLRFuKXF9MKgHZInFD XQQWVFCUQKBILL2LFVCptW FyICAtICBORUdBVElWRSBG J3DjLErUTW6IKeCDKHJZDO KDHDTMCJCdL9PaXROJJYmU JA0ESUrdMJNtoJHuZCDxHT VLPT6PXFMGUTqGTF6AU4EL DaBTYrvjHX9WVBQtZWDUT4 BTWTpccGFyICAtICBNVUxU SVBMRSBGUkFHTUVOVFMgT0 EaTICSMUhXYmHYOPNOL44U XHBhciAgLSAgTkVHQVRJVk UvLd4EXBbIU0jaH6BXYOOi DEpWXBqJC2dDJG8BKZ9KIN lGRcEXS0amcDRqFAQcdkSl aWIyTWIuPNZVZF3HTDOFEd DEW8NSBzWXJQPUCMlZSQGB AG8QO8a7DCKureRqGTHdUH LFIPvKLMSmKlBBK81LKzEO XC3FPKMVDzVDUKNeWWVIXj 9WVMxnGTBaMZ7oIJ9XT8RR SVZFIEZPUiBISUdILUdSQU TCPHIXE6NVVQXQOCYQPoXM FEgLQ18RBzQANVHljw90PM J0DuYgj3P9PRK2OTVnZBHp x3cwHWZkyTTuUpBfWmRuRn JvNtnvuGCuUPXdBzJer7kz x385tXGyq5ujCEFmWkA7nO SiNZKmdLYsV896DUUgELot w7yys4ImQQPiqADzr8G2JE BMhuysfBz1kVjhN28nx1D8 MogfM1deQOUlLMHmI5TmTC 4rQFVwJex8MUT9CQX8TVCj TGUiS7PkMT8kGHQeqAIuQK y3c9txrMxsQVDqRYN5m2qa EFegwtWzIO8jpo7txLf8c8 xjczEgRGVmYXVsdCBQYXJh V3YapVlyAt6dkFj5mIhzUg auGPJ4Aje6UH2pfs60sgn1 eOjnGTHarhkkYpE1IYocOA NcoqleSIx2MTadWDHofSR9 SYVgpCKnQ4TwSHHaLN2nqj d6DWC2YMgdJQChElW8DUDh dMMnJTQuaBacZKlpy919KA C4UhMmXC1bZ7Jkq3E7gF5s aXRcZGVmdGFiNzIwXGZvcm 5euHIjBRlgq4YrVJQ3clY1 fIBzsVSfGGKrBkB5VTmbZM 9vjg99AJMgEAR5yj2amPWn rMgzkhImcUAwAEsuA9TpLD Rps829SYIrP0HcWXPro7J0 eyEbXjMjHETcqPV0qiE0RP YeVE1tslion0atQAzgRQbl FVWpzyJ5aeE9GCCaiMZnC8 NvrU4xWEUhBP0fvtuew2zl LRZ0XCdkJQOyBKC7XsPbNS Tco1Uqntc6HsUwk9KklHFe XTqbZ20oe730UZYrbvPbA1 xwbGFpblxwbGFpblxmMFxm ijD2JYSjFSqljyooOQBiSU mqF7atNoFqPJPfbUhqLPcd m9XqJWEeCKQqSfNbtSMcHT ItQfo2VTNytCFcKVSdWmTj I5aejnppLlOWYAOsr0coM9 jujYOUsIXaT9NkSKynkeFn EZebGQiqDSQmAUE3DB2fIS TkTMLhor69 CPT Code(s) (test code u2ukhYGzXKSiiQL3JmGkLH = 3357) Wpt7lna0CfuEFluRFbGYxq bAEfaiDzpe70qWQ0wA82FB 5wFJZeUkI2HZBbfdD1Wqr4 OCJsIGOjcBAxT894h1qlq5 anliIbfPI8kOgaRAQwmtlv HuJ0ZSjtEEWjxpqzMNr7VB rcRIBldGG0VJGfaZUeH8Zp NYMeSE7pkfz4PQY7SHxuJJ RyMbP1HOOqoOQaJLFyuZnr OWvca903XKK0KjJzXARxxg WdjRyodV3kSuYzIJU0WTEa PIv5ZENtit3= CLINICAL HISTORY (test l4hudKLlPXLpvRF5UqUgRI code = 3356) Qdf7jqh8OgkAXvqDOyXNry mYDijuMbbj72dBK3qK05DR 3kUVQyJpD7CTXwxaS8Yon7 FISvMMPykDFoQ019a7cwm8 nxbpRaeMW6CSFkOMWuZ7Gq WC9iTAGrgRQwT97qyYVlLG W4RRJbPKJqrCDcOOIcZGP9 MZSpjZZoV4chOACqAO2hid mdECrgRVjnAAXooWH9ATQq uUDfW7DlSDVfUItxFOHjic i8KwQiOf7esJOasKysSPyw YXJkXHJpMVxwbGFpblxmcz BmSDNyCZQEmi4lXTGbHqcc uKUgN3ebJX7yfEjmSWA2pw KsNNBaAhnmSYKlvd5dOWTe VeeilSDiR5ihLQ7tjEbkST O1lSQpOWTjoo2= GROSS DESCRIPTION (test e8ttcLSmJRXrzQOHCWDuOq code = 5649941995) fshgLaZTNphHYtD5Gnciuy ZTxaUG8qIJ9mtOlesNStlI WcEE4BDYFzPvCpWPWdbLXl fhXfTlUlBAAkrRNdcLV3WQ ZoIT2eqotlNSnySPvtHKDj ucX1JSBvrUMdU9GvXXIwIV 2rnhinGXA8JHdzvC6zlaIL LuenCl0bzWTkrFvkMpAuRn NoYXJzZXQwXGZuaWwgQXJp UAk6jB9QBqkbP01ge7Y1Yq p9QFItDLFvB7PhQS6fAUUp aNSiM68TRuvcKWO5PJTWFg mbJDFiUG1Wb3nfVXAeyXNv UKR7UTbccUTuZAPdCHGwAQ c6NYJcQLxmuUZuZG1uyCln VmzlkJirt9OcqQEjWJbyJX YmRFApPAjsMXUnLB4XYcHu CPpBRubsNUmlXoQ3NIt8JG EMFpJqMuXpBlcgPTP9UOqc KJy1ROa2LCrNMzS2JDH6SJ GqTLhvBNFcYekrJRg1ZIEv XFxmIEFyaWFsIFxcZmwgXF xkC47dwOutyL5dTF4uXY3w nIEgNQWntO0uXZ9pO8GjlJ 0uXHBhciANClxlcGljTmVz dERvYzEgDQpcbHRycGFyXG xpbjBccmluMCANClxsdHJj aFxjZjFcZnMyMCBSZWNlaX XzXICclcDsp1RwZIyqrrUx YWJlbGVkIHdpdGggdGhlIH XgbNzhqfWoC0Q5enTgZK4b CPGvZPXcN4HmEAAwV02kMZ AxlH6lBVQrII5jSYo6XDEm VVMuEwvqyO8bcOWjYTYbpK 7lTXZzC5CvWfNkf11eqTT4 ziKuXiJwTYChcf3tnK3zPN Yxyw8vYFWml3Q3XYBog5H6 AGPwWX96YSzyIK7kAZbjZV 4xIGNtLCAwLjYgeCAwLjMg oQJlZdAcW81xLuJzOMkpOU OlQPNorIOaINjpLPI2Jb1i dVBkNDVgsrM8k2KsYQymFM DzEpdgRBIaTFemcTFfIZ0I KKBlBPysgjHuWG1FYKRfXC wxOEMzqNMYOFL0OK8sLZng wUAgrgsmIRDrV2ZyU0Tdzk FgcIPiCFThkaRby9rnRLN2 XHNsbXVsdDBcZnMxNlxwYX E0IZq0BEmhZRRzI1LfY0Sc HTkwMTU6AIAgLwOmNALlCN MXRqImTgKdQkN2Ird0PsXq STg9HYleG0DDRDZoRXI8VS O6FZA9QsD8GMa2NBIQYo6d ZQSoDUH7XbL0VQV6IpS6CA xcdCAyIFxcZiBBcmlhbCBc VIEkXHyzcjQ6DSIyHVWqiD ygsF5bYz1zNV3viPQjGJWm vE3zDI1vFmeaqUObSYAaEX 1lfS9tFfpxGHNdSKowUTRl J80ps0FKt1VnOL0LEHj4og XqthblmQ4vEDSustOuOIis xCAbC7auE0VrJPJaTxVwAt PvVJa8XTZsdO7jOf9upUPi oZ9iaPWrSYdsSTP1lGThLV XwKKMtKOGwJD91RYtHLWHv bmFtZSwgbWVkaWNhbCByZW NvcmQgbnVtYmVyIGFuZCBc vWviAmLjXXt3N2FsnThtFC Foq1jrxf2plToxdEMsg7Jx cpKaawpeUVTtUXVff74uaG E3ajEoGpStnKp7pWNqTPG9 RG1zpDsnjmqheDZbBHj1zA RwWYJzHwElqNixt6HfAMxj LjQgeCAyLjEgeCAwLjQgY2 6szR1bVLpbiiAxLYLjWW9s XHEiLSRebTZdcG6qozKpvk SwkKLujAM8WNLnvZ9aqJ21 vsOttbVPNG6ndAUkSX4LYB BhciANClxjZjBcZnMyMiAN ClxwbGFpblxlcGljTmVzdE UkBgWydNczxI47UAZjmLKk GYV3DM8dWVCxymkaRRWbFJ ZcLZO8VVvlkG95pSOoEOQl LXAjqWTiiD7Lf5ntLXFfsL QvDXC4YInefCWtXGYhZYEb XQqeItWzN9HMZXTlCsPbEM T4KUHiEPc7PQd0MA2CRmAd OJUzIMBkDfD0YXCoSIk9UX keGH7CLZN9Swr3FIZ6AXC9 NTMyOCBcXHQgMiBcXGYgQX PwJYlrUOpbeYCuDK2ysFlj lfY1XMQvXUyzIQIxVZGceH lwDLMAk1pqdjCwCIAcP3h8 U6QgW7NdPKymZr7fySSjAA 8NDASjdWBOEMI2PN7dETGO ClxsdHJwYXJcbGluMFxyaW 8aPQ2KGBg3iuLqGPFxOYpb uhCfGSYwT9EivjCrVEoiWP Qlye7cjDycJJitMnFzGBFt l0b7tXV5fSSqfFF9zICunE bsLfVrKA9oaYOdNL7tMSwq TWmndaKnn7AjNT09iTZndv QupjTwPWS0ClLnWMqrUJDi q5p7mBmeF68pf62hcvevyH BjZCGjVT1uoU2cAhChgqOp W13bg4sfeADuf0JwzOYsxI lwbGUgdGFuLXBpbmssIHBl CXEsN2OqJPAaNRPyy6P1XP Qxf1O1KHPxUb77PJymBc0d CDxeDW55SEEdDRrcWEEyS0 QtF1W7HMbsRYYEsLObo4Oc T0iaIB3hqXEza6UqbMp2xK YjPKdsWFGjxO5raX3mMsPt XHBhciANClxwYXIgDQpcY2 PnOCAcVpSuNXfabRyvyP9v HYAoG28aw1FQb1XlYGRvBL wtw5bqfEafe2ItfUKbUMrx EKMkqKGiAEaikI5lBsVaj2 gcxIy3WSxqtoS0YQIqex1X YupxIksotVybc5YkkSSoAD kdANZcQMJaNMdaCPXdMZ5A HvNcYZkCKvqlZUtlPpY3KK e6DCRKJlAjNfApObvgFJK4 BzGfXRv4YCs1FSpZFgO5TC I9JCJcFrVuXZAoQraqOGz8 IDIgXFxmIEFyaWFsIFxcZm lbLHclF11cRlVsQyqmnNMc ntGMAwLEf8x1yXiyV32my0 1dTZTMfwXft7QsqwOeBjym LLCjPYbuMTImM35xn6CPz8 BxWO8WZRh2sbAwuvqvzJ6v ZXSdknSzXAwpxCDwU3kkB8 HgFQMoKxBjReRxLTn3WBKj zI4hCn8pvIHpyV2zoKHkAF ehVME2lAJwOWYdEFWlFNRn CN17XVqRBFJeskXbNCiroD VkaWNhbCByZWNvcmQgbnVt YmVyIGFuZCBcdTgyMjAgXC w6S3ZdxRdxUZPsc1vmpf64 bwPpx0GxxcNhZHVtnJCnML 5eTdkwoY65OWRoHBYnSZZf aGijCLxuCkHomaDmA35hw3 wgpAUit7BxbJOdnFlywACp dGFuLXBpbmssIHBlZHVuY3 AvQSWjSXJzd7Z5VHPji0B7 HJIiLs6rCTcdQv7iPIjjVR 22YBVqHKoyQHRiH8OgU5Y6 FAmwJIYPoYOxy5TbO3fpGL 1daPWmv1KaxCv5aIZzGXcv MIJtiB9oiU1gADYxNNQcNY LfleNEGshdIOMyLAiEt5Gx cEidQCPlA2a7e31vR8xhkN KyUXYKSCR5eONibpTojTUq MB6LMOXrjbYWXyhcKyXfMp MyMiANClxwbGFpblxlcGlj ZhPiaXTeQrXbyCqxeW39XD VqeQMvUTV0HH8kHJSbxxvn ZDOcPHJjWTH2CIojrE83cE GbXDGoOZStoIHhrX6LMPOk LVK9FVxkjJ93dNZrIY7THX ZaYVN0ZNOpyCWtBHB8LE7d fQ0KfQ== MICROSCOPIC DESCRIPTION q6ygeVYeWYQkaIO2TdYhXE (test code = 3371) Eif4ovn6ZzkVFpqTCiLHos hVMkuxJrsf57vWC1rP81RZ 4kSQMwAkZ7EUTdtsJ5Caz9 YFDgNNHomQKmH294p6huk4 xzbiQzaYQ3sRkyHNJfbllf ZyJ1BZotVAHhbacsKCh4VZ fpPUZbuYE0URBhwURfP6Aw CARuDF4dhec7TVJ9EEsmGL IkOiQ0AQLufWAaZQVzqDqb GVsce742HZY4UmUbPWUkzn OlxNcaqB3bCsGmGFUEEQBs a3ZtWZHgNMWdevzwDBKzAE Bhcn0= [facility] [id number] 09:50:09 Test Item Value Reference Range Interpretation Comments Case Report (test code Surgical Pathology = 104) Report Case: [id number] Authorizing Provider: Angela Loco Collected: 07/03/2021 03:04 PM MD Brian Ordering Location: [address] Received: 07/06/2021 09:08 AM Service Pathologist: [...] clip x 1 DIAGNOSIS (test code = [id number] 3220) FuZzEwMzNcZnRuYmpcdWMx IHtccnRmMVxlcGljOTYwMV nrofZxATNjrKZlZ6Adcbmx MCsxOY6jYJ8qvRvgoWDreC JaFEHfRuWnk6kgu167qKPq l9zpERJWvjavzKa0lEgxL2 0kf4Y6RhneP48jyGKaREH8 YJChPPZuqBCrOZIqETQ2NK PmvPLhW7euBWKsPP9fjypn VOmpFVdnWTFadHV1JJWvsN UsI8DzMXFcDPyqYZJfssk2 ArGtKc4pmMNtyTluOEraDK JdKFLsJVgfMJPyPbGcLX8f U30DG69uWXAUX9NUPTFSOT qHNOHICF5YB2v6JDNjnjQf LSAgVFVCVUxBUiBBREVOT0 6HVGPtjabdYGLvDc8yV89T U22dBZNVP5yHB1OGY2IOQJ hLEoIOR2rXUQtqNbsDOFWF McqsOOUfAF8mGY1YBOXKXK pMINFKVXpWPU9JTkUZHaYT LJNZIFNBEVNCXM6EUPNdsO FyICAtICBORUdBVElWRSBG C3AyFGzZMD4BQqQWUGRVCI ZYEAZCSKUvL2WxWCWAEJoG BP4RTMpmDRZbkNQmREGyRV UFTZ7HJNWOCUfGHN0JF2PQ EkFWGzcoRK9JSARjQQKIB1 BTWTpccGFyICAtICBNVUxU SVBMRSBGUkFHTUVOVFMgT0 BdRCEJSZjEFjDOFLFNA32K XHBhciAgLSAgTkVHQVRJVk LjIp0DHUaAT3mrI2MSNLYi YOwUMGwZL4tBQH5BAP5GUT dXFeTYP5jznCOtXAGefjDk zLSgGWTdBSICFR9FDZRDOf UAW0WEBdLRJSTRLCrYCWGZ TP9CL1b5SFSwkhSiMXNtTG MHOZpPXKPjPcSOM95AFbTG GP0EEUDFAgTSRMRgTEWQQe 7OJYbvOOIiBM1mPC2YV2QW SVZFIEZPUiBISUdILUdSQU NTHRUPV9KHCRMXYJLTPwQH GSmOO48OEeCNPXOlis03CZ G9HnJmm3O7ZOC7FNLeDBCx t5csBTKfqYAbVyDpKqSdNd OlTwtjqSUtDMSuEcCws1ui l341dZTeg5erZVChQqP2vM GhLVAnvJDsH464DPJoLIbz a7oet9DeDTKcuFDps2J8YV CDiqkdvZs9aNpzB45ys9X7 WnbbM7ikGCQzQTPgB5QbCA 4iWMGdIdn6ZAO4YDF6MUBn HCZdL1AdXQ9jNSZsvSGeVW d4r5atzDrfVHVgEKS5e8qs AXiooiSeXM2hey2mxEk4a7 xjczEgRGVmYXVsdCBQYXJh V1BlbZdaPj1lyEi6cKmwEx djLYS8Wml6MR2upx72eqy9 lLwoVACxflpuYgF6KYhnNE TqhfuyFWb5JHauDYHqyQJ3 GAZmiJLcB2OoGYBaUP0rav n1QWW6KMmrVEZnQgW0BOWa eRCrSAXmfCgkQIrqg932OT K2AdXgMZ2gK5Jtd6Y6iT7l aXRcZGVmdGFiNzIwXGZvcm 1ycTSlRAjur7EuVIR1hpQ7 vPFyuNSrAYZoUmV6MXbhSQ 0hsn26WKJeWUZ2se9xsPKu qTxlhiSffOKeIIcpZ7ZuFA Trd898WEXtQ5PfKJVlh3V6 tbYzSxHnKXFrtEK8ayS1HN IpLZ2kvvuyy3fnXBojQBtr QBUqpmO9haE7VPSobTUtV2 HclU6yJGFwUM7alirlg8rh VXD6ALwkCKLhWSB4ZkWnLA Vgf4Wqcry4IjXea4UjnYVl RHvoX35xd943ALDpbwLcA1 xwbGFpblxwbGFpblxmMFxm pxC2URIpQMegdqipGUYxYQ jfN8isTlHnEXDozVxlNCti c0VxCQBlYGXuGiYicIZdFB SgUbz1AGXpnYQcKZUqBwPs Y8mtpucuDuQNVYQvm4hpV2 qxdKWHtGSuU6HdBDeilgXm PQdmWOqtKDRyRUW5ED1jNM IrLTWlip90 CPT Code(s) (test code r3cbgHOqADLarCT4NoImYB = 3357) Xrj5aec1YtpBSobHFrRUnl hXOfhiJoca73xWW0pJ59QY 9uUOOmXzW9SGWgnjX1Llt8 RNKvTAEolBCzC407y5egc0 fkcjPtnDD6kBzbMEXaxbut AzD5CExsXSYpuzmkMPh9GC tdZERwtWJ2ZKXhhCVwU3Pb SYXpVK0qajx7KNI4ZKcwDW IfFeQ2MKOtgAMuTIWdkJmn ZCclr337MOQ8FeSkAKQpll GhcJqqoE0fAsPqEVK8APDj FIw4MEKeut2= CLINICAL HISTORY (test l8expPZqGGEfcBQ2LuWyQP code = 3356) Jwf2bdu2JglTYmyCEuFAbm hJDgsrWiuy36dSB1vS21BN 6kYDQbZzZ2ATLqwzW7Zfv0 PUFvSRFfhEMyO276n8swg4 agjnNahZQ2RAItDGXsF9Zx XL1dKEKssWNaM90ehFMuAV K5ZMFgRNKdfJPoVQTaEUS1 KGZpoRLuH6xdKORlYM1hro vaIFubYIhkLCRupBU7SGZt mHEaM2QuPLGfHGwjHQYdva p0JyDxMm9mbNMccVkxPKdg YXJkXHJpMVxwbGFpblxmcz GlIVKiIZZQua5hHTVrOime fMMzK9irXG4tsAzqRJO4oa XxOPFvQhjyPPMejf5jRLNu KaabmRQrU0dwQI9kiXogFL F0xFXfGGSpxu5= GROSS DESCRIPTION (test r3jxoDBtVDFuqHTVXPYnAs code = [id number]) akimRmTMZktBHhI4Tprhzm BMyoXD2eHE2rpGbmdJHnvE WjQO2EHHSxLsUoYDKbcOZx wwTsPaCpSYNuaEMlnIB4XB AnJV5oynpqYLkgTErcRJMz jxJ9LEKmuWCkW2ZcQTRnAJ 0gblywZDZ6GXmeuZ0tpaOD LnreJl9oqFUskKcpKyFyHq NoYXJzZXQwXGZuaWwgQXJp XEp3kD8HAleeD53dg0B3Qu l1CQUdAHPxD2BqPA5bSTDa sUMaZ22JUpqcZMM6RLQWLa zzHERwKK5Wt4llDPPeqXIs XLD6ELxpvSMeBTYnYIAwGW j8CXUsKYgjvPCkEN1ymKqd McbiuBnqy3YqxHGvVLksPY WxKNEvCZwoUBWlEH1SZvNe EYhLWbqlHDcjXkS4HKd8UJ FGAuDgNnMnYaviWJN2FHkg DId5ZPu1ZXbQNrJ3NPC2YM PyUTioDCIbQrjfNUd8CEYe XFxmIEFyaWFsIFxcZmwgXF yiU97glDmkoB4gXT5uLV5v oOZyZFWaaK5hFA3kN6RyvA 0uXHBhciANClxlcGljTmVz dERvYzEgDQpcbHRycGFyXG xpbjBccmluMCANClxsdHJj aFxjZjFcZnMyMCBSZWNlaX PcXLMmzrDmh3ZdZKsplrBp YWJlbGVkIHdpdGggdGhlIH QdyNagqaKjB5A7sjEmXK9y GVXbGWDfC6OtCPUwF50kJO NjxS2kOGAvVJ8qUWn7BDCv RHRnTssmbH9qnAFbRDSevS 0nRCVfI7ZeSjHbq64kpZN5 esWaPjThQPEcrw2kwF0fRI Ovvm9dXAYvx9X3MZDrb3E9 IAChSQ19MTbjFI1kPIrsUI 4xIGNtLCAwLjYgeCAwLjMg rGNqCaTdB92kAdRxPRfdTW NxPNRdxNJjQIbsIGD1Tl2l fVPvCNKscyE0c2OfKAbrSM QxTlyyCFZxWPlhhIZyPK3S BQWsQXtgfmNnAE5IHWMlDJ raKQZsmCWIDYJ7ZP6mFDwd xLLvufjdOJUyB8ZqU8Jmtq FbsJFrMUDwbkVwh6kxFUR0 XHNsbXVsdDBcZnMxNlxwYX I3DHz3YJnqMAFsZ2UjY9Aj CTrhHZF2LSOvKvPjWOQjPK YVQtXiLvZyCiF2Weg0VaAy XSb5MFcyA8HPEGRcLOJ7US O4SGK6YtU3NDp4BIQWOx1u AKZpRLW3YcQ9YLD3UlK7VC xcdCAyIFxcZiBBcmlhbCBc JKPeWJodljQ8MMEgTUMntV ptfW7bNa5uMO2oyCJcSIUe kK3xKI8pEmaokCQdADIcYR 9fiE6pBaqdEDYnGQfyQTUx Z32nk1AZk0UiXK0TWNr4qo FevzadzT7xHPBqioIjOTyi vOXsB5ziI9UfNFNnBdQsGe MdWUb4ZRNknX8dAg2peCYi bC4azKEsZObdJTV2sTDcBF ZcIJFcTNGeCH91MSoKHOAc bmFtZSwgbWVkaWNhbCByZW NvcmQgbnVtYmVyIGFuZCBc wMdjCoZeAUs9R8VgsSskBJ Dzs8ovna5lzQlbwYMib8Uv zqAthflgBWMbELTgu70brU F2yoIwBlFqsAj8mAGoULI8 LO8hmCmlszqglXSdVRq2zQ ClPQNbReBxgKxdn2TyCBdp LjQgeCAyLjEgeCAwLjQgY2 3eyO0rXMzibeZxIQWzUB5a EEEmCRGlhBIlfS1qwtAwea RmsGJngDT0TCCsiW2jzM23 soRhcsVXNG4ggJKmPW2MBD BhciANClxjZjBcZnMyMiAN ClxwbGFpblxlcGljTmVzdE WoHgDhcRphrX58WVCsxAJv MTM4MH3oOABmmzvdACTgRD VtWGN6WDmtvN68zPYdJXLt QKEugNUjuN5Rn3myOBKxvE BbSKR5FAyidRFsXQQaFJSp HTkzPdSnR3KNQUWjRbYjHJ K0ZXSmAXu7DTb4UU9XOhWk AKBcKTEqIiB8VZKeMVa1BP wnIH7TZLA2Eod9MUF1UHK9 NTMyOCBcXHQgMiBcXGYgQX RjUXlkHChffKMiJY8pmKul teU1BQKySAxnEAYaOHNyxE weGJGUx6iphoZiNUAtB0w0 B0OgV2CmRVfxYb5pnRDgFD 3JEPVwsMNTMEW1JG3mPFRU ClxsdHJwYXJcbGluMFxyaW 6qHC5BTSq7oqKjPCCxUHfn ewTrZXBdK2EypzViIHxeKC Cffu9ejDgvYXjgApQaANPs f0x2xDM0rVKjaMF9gUJlvH okMlLzDU5xqIFkHW1yRKfq RJeqzyNoq1HzVA42cBPlko HpffTdXNG2OaBxRNrqZYWv n5a0nWbiO59xu69thwhgrQ FfXFOvBS2nfT0sCrYkviNb A22yq4rekODge1BkcLKwtC lwbGUgdGFuLXBpbmssIHBl VQRkM6YiTGZtOGCfz6W4SM Dcb0E5BYEgRj99GIpsIe8w BSriWG15GTPvTOjtAQEaK3 ItQ5E1KEljPCMLfZFgg7Ac Y4twOM4ytTYap5UkpTk5iU XfQFzaPOLxdM9aiY6mIsVu XHBhciANClxwYXIgDQpcY2 SoZNNwOyZoEBiniQorcP3k CHQiN95cr6GFg7ClHJIpRT ndj0lizCftp9IygODyKUox AKPveZZgNQvogM6aHyGdm2 nyjHx0WEgtdbX9KJUhzf9W QprqVvhgtDdmg5JftRAgSE cwVWYhTZOhGVgqADMdRT6V KcQdZXiMOojbTMydYuK8NX p7ZRJSKnUyExAmJmtwRAR5 VxGpJXp0YXs5YOhJWnD2UK S3QDHyAkKqIECzFpluLSm4 IDIgXFxmIEFyaWFsIFxcZm kcMDtiP50gPjFpWroosNOu jeUPKjHPf8j4oIwxV98vj4 0hQMLUmbGbc0DsjvWcJjgy FUFhGIziLINnK23bh7SPr3 XaUR3YVVb3alKfpphcoN8u DCVwubLnLTkdzXBrN1afV0 LpAKLgVvYiIiVlHWt2FLAb iA2gFv4hmGRreK9gnNUgUR dkRDE8eDDmRUIcADJyVNVm DL32IPdLMPSaibTaDVtyaE VkaWNhbCByZWNvcmQgbnVt YmVyIGFuZCBcdTgyMjAgXC t6C4OdbAudSKKcr9klmh78 faSen4OeffOiCPOudVPhPL 6eGvlgmI75GGDkGAGgTKXf zSkdIDztViDnqjFcD32gy2 jwtFZci4LxoMLdvRhuoJWc dGFuLXBpbmssIHBlZHVuY3 OiMUSgMITzl7J2PXDko7P0 TNPqWk7vOWhqHw5hGOpzBJ 94PGFvUYplXYZwL5LgL2Z6 YSdfDAKPhPDkv8VoC4nvBJ 2mtRFvc6IegAc5aNOgQJdo LSNhjO9igY9aZWAmSUEsAE XmsvXUAqthYZKzBPhWo5Lf hNopMDFlL7q3j31dZ7eazS SzEQRDPXJ7mDUbmuCrwRYf HP0BCKHiwlJYYxvuDoZvZh MyMiANClxwbGFpblxlcGlj DsNeeVRbMnKzvOkadO27LM OldBUwDEO5EU7bHNQeblql OFOdBTZyILH7TRdmyW16oK SnJAOpFEAvmCPulU5VPTRv GQC9IRpusE44dNSjNB0CBW LcZQO5VGBiwVOaKCI8JH4a fQ0KfQ== MICROSCOPIC DESCRIPTION y3kgjBKpUNTwuBT3OfHwEC (test code = 3371) Gwk4guk6OfyJSmgNKiHMzj kPZrfyNvox79uPI4gR32IX 0pELFrRyB3VZJjdrD8Rmp7 YBCcHFCclSJtA546d3kxw6 uhbvGnqLN1tJiqZVLfppub SlL6ACsjEPNkdvfmYEa2QG tmCCMquYG6SVHtdSJlI5Bv RNCaKO2zfcj8BQJ4SMjnOJ BoQgY2QKDvjPCkEEPklIwg QAqmd961EHX1ZzAbREBqmv PxmOiyeX8mGtIuEIBINVTl z8EyVVIxFFLhqygjRZZaGI Bhcn0= [facility] [id number] 09:50:09Surgical Pathology Report Case: [id number] Authorizing Provider: Angela Loco Collected: 07/03/2021 03:04 PM MD Brian Ordering Location: [address] Received: 07/06/2021 09:08 AM Service Pathologist: [...] OR MALIGNANCY Signing Pathologist Direct Phone Line: [phone] signed by Michelle Fernándze MD on 07/07/2021 at 9:50 [id number] deficiency anemia, unspecified iron deficiency anemia type [...] in B1.C. Polyp, Colon - Right/Ascending.Received in formalinlabeled with the patient's name, medical record number and "polyp, colon-right ascending" and consists of multiple robert-pink, pedunculated soft tissue (2.4 x 2.1 x 0.4 cm in aggregate). The specimen is submitted in toto in C1.D. Polyp, Colon - Transverse.Received in formalin labeled with the patient's name, medical record number and "polyp, [id number]-[id number] taken by hot snare, clip x1" and consists of multiple robert- pink, pedunculated soft tissue (6.0 x 2.2 x 0.4 cm in aggregate). The specimen is submitted in toto in D1-D3.GRICELDA Andrew studentPerformed.POC- Glucose [id number] 08:45:23 Test Item Value Reference Range Interpretation Comments POC-Glucose Meter (test 92 mg/dL 70-110 : TE STED AT [facility] code = 1538) [address] [place] [address], [facility] 30: Bead Wrapper/Techni kelle ID = [id number] for ORPHEY, EDMUNDO Lab Interpretation (test Normal code = 09465-0) [facility]-Glucose [id number] 08:45:23 Test Item Value Reference Range Interpretation Comments POC-Glucose Meter (test 92 mg/dL 70-110 : TE STED AT [facility] code = 1538) [address] [place] [address], [facility] 30: Bead Wrapper/Techni kelle ID = [id number] for ORPHEY, EDMUNDO Lab Interpretation (test Normal code = 21882-0) [facility]-Glucose [id number] 08:45:23 Test Item Value Reference Range Interpretation Comments POC-Glucose Meter (test 92 mg/dL 70-110 : TE STED AT [facility] code = 1538) [address] [place] [address], [facility] 30: Bead Wrapper/Techni kelle ID = [id number] for ORPHEY, EDMUNDO Lab Interpretation (test Normal code = 39776-1) [facility] [id number] 08:45:23 Test Item Value Reference Range Interpretation Comments POC-Glucose Meter (test 92 mg/dL 70-110 : TE STED AT [facility] code = 1538) [address] [facility], [address] 30: Bead Wrapper/Techni kelle ID = [id number] for ORPHEY, EDMUNDO Lab Interpretation (test Normal code = 97123-4) [facility] [id number] 08:45:23 Test Item Value Reference Range Interpretation Comments POC-Glucose Meter (test 92 mg/dL 70-110 : TE STED AT [facility] code = 1538) [address] [facility], 770 30: Bead Wrapper/Techni kelle ID = [id number] for ORPHEY, EDMUNDO Lab Interpretation (test Normal code = 68850-4) [facility]-GLUCOSE [id number] 08:45:23 Test Item Value Reference Range Interpretation Comments POC-GLUCOSE METER 92 mg/dL 70-110 : TESTED A T [facility] 6720 (BEAKER) (test code = [facility], 1538) [address]: Bead Wrapper/Techni kelle ID = [id number] for ORPH EY, EDMUNDO RAD, CHEST, 1 VIEW, NON [id number] 07:59:00Reason for exam:->post-opShould this be performed at the bedside?->Yes [facility] LINDSAY : 1955 Sex: FFINAL [...] Cosme MDReport Verified Date/Time:07/04/2021 07:59:51 BASIC METABOLIC [id number] 06:24:45 Test Item Value Reference Range Interpretation [...] S NOT APPLICABLE FOR DIALYSIS PATIEN TS. Bead Wrapper ID - [id number] 06:15:51 Test Item Value Reference Range Interpretation Comments MAGNESIUM (BEAKER) (test code = 1.9 mg/dL 1.6-2.6 627) Bead Wrapper ID - [id number] 06:15:51 Test Item Value Reference Range Interpretation Comments PHOSPHORUS (BEAKER) (test code = 3.1 mg/dL 2.3-4.7 604) Bead Wrapper ID - [id number] (HEMOGRAM ONLY)2021-07-04 05:44:21 Test [...] Not Detected, (test code = Negative, See 94592-6) external report for linked test SARS-COV-2 [facility] FILIPE PERFORMING LAB (test code = 17583-8) BRANDI (test code = Negative result for [...] of the Act. Fact Sheet for Healthcare Providers:https://www.Yorn/sites/default/f radha/product/documents/F act_Sheet_HC_Providers_L krd_ISDV-RmN-0.pdf Fact Sheet for Healthcare Patients:https://www.Passman/sites/default/fi les/product/documents/Fa ct_Sheet_Patients_Lyra_S ARS-CoV-2.pdf Performing Laboratory:[facility] [facility] [place] [address] [facility]As[facility]omatic ONLY)2021-07-04 00:21:04 Test Item Value Reference Range Interpretation Comments SARS-COV2/RT-PCR Negative Not Detected, (test code = Negative, See 32599-5) external report for linked test SARS-COV-2 [facility] FILIPE PERFORMING LAB (test code = 43058-2) BRANDI (test code = Negative result for [...] of the Act. Fact Sheet for Healthcare Providers:https://www.Yorn/sites/default/f radha/product/documents/F act_Sheet_HC_Providers_L zaj_RNUV-EgU-8.pdf Fact Sheet for Healthcare Patients:https://www.9GAG.Afrigator Internet/sites/default/fi les/product/documents/Fa ct_Sheet_Patients_Lyra_S ARS-CoV-2.pdf Performing Laboratory:[facility] [place] [address] [facility] (Asymptomatic ONLY)2021-07-04 00:21:04 Test Item Value Reference Range Interpretation Comments SARS-COV2/RT-PCR Negative Not Detected, (test code = Negative, See 55558-1) external report for linked test SARS-COV-2 [facility] FILIPE PERFORMING LAB (test code = 08093-2) BRANDI (test code = Negative result for [...] of the Act. Fact Sheet for Healthcare Providers:https://www.Yorn/sites/default/f radha/product/documents/F act_Sheet_HC_Providers_L lpz_JSXT-XjZ-6.pdf Fact Sheet for Healthcare Patients:https://www.9GAG.Afrigator Internet/sites/default/fi les/product/documents/Fa ct_Sheet_Patients_Lyra_S ARS-CoV-2.pdf Performing Laboratory:[facility] [place] [address] [facility] (Asymptomatic ONLY)2021-07-04 00:21:04 Test Item Value Reference Range Interpretation Comments SARS-COV2/RT-PCR Negative Not Detected, (test code = Negative, See 88449-7) external report for linked test SARS-COV-2 [facility] FILIPE PERFORMING LAB (test code = 18260-2) BRANDI (test code = Negative result for [...] of the Act. Fact Sheet for Healthcare Providers:https://www.Colored Solar idel.com/sites/default/f radha/product/documents/F act_Sheet_HC_Providers_L qza_BHSC-WdG-9.pdf Fact Sheet for Healthcare Patients:https://www.ankur del.com/sites/default/fi les/product/documents/Fa ct_Sheet_Patients_Lyra_S ARS-CoV-2.pdf Performing Laboratory:[facility] [place] [address] [facility] (Asymptomatic ONLY)2021-07-04 00:21:04 Test Item Value Reference Range Interpretation Comments SARS-COV2/RT-PCR Negative Not Detected, (test code = Negative, See 82153-8) external report for linked test SARS-COV-2 [facility] FILIPE PERFORMING LAB (test code = 52582-8) BRANDI (test code = Negative result for [...] of the Act. Fact Sheet for Healthcare Providers:https://www.Colored Solar ideSkyn [place].Afrigator Internet/sites/default/f radha/product/documents/F act_Sheet_HC_Providers_L akg_BLXJ-MpF-5.pdf Fact Sheet for Healthcare Patients:https://www.9GAG.Afrigator Internet/sites/default/fi les/product/documents/Fa ct_Sheet_Patients_Lyra_S ARS-CoV-2.pdf Performing Laboratory:[facility] [place] [address] [facility] ([facility])2021-07-04 00:21:04 Test Item Value Reference Range Interpretation Comments SARS-COV2/RT-PCR (test Negative Not Detected, Negative, code = 9168743) See external report for linked test SARS-COV-[address] [facility] FILIPE (test code = 6181606) Negative result for this test determines that [...] of the Act.Fact Sheet for Healthcare Prov iders:https://www.Liveset/sites/default/files/product/documents/Fact_Sheet_HC _Lfkmzhgal_Edqe_UIVD-YcB-0.pdfFact Sheet for Healthcare Patients:https://www.Women of Coffee.Afrigator Internet/sites/default/files/product/docume nts/Hdzp_Zhroz_Uudgeepa_Rwqq_EAAS-NdA-0.pdfPerforming Laboratory:[facility], [place] [address]KAPI-ZWORODK METER 2021-07-03 21:29:18 Test Item Value Reference Range Interpretation Comments POC-GLUCOSE METER 169 mg/dL 70-110 H : TESTED A T [facility] 6720 (BEAKER) (test code = [facility], 153) [address]: Bead Wrapper/Techni kelle ID = [id number] for [place], [place] POCT-GLUCOSE [id number] 17:51:28 Test Item Value Reference Range Interpretation Comments POC-GLUCOSE METER 110 mg/dL 70-110 : TESTED A T [facility] 6720 (BEAKER) (test code = [facility], 153) 89686: Bead Wrapper/Techni kelle ID = [id number] for OR SUEDANIEL NailsIS POCT-GLUCOSE [id number] 16:18:01 Test Item Value Reference Range Interpretation Comments POC-GLUCOSE METER 78 mg/dL 70-110 : TESTED A T [facility] 6720 (BEAKER) (test code = [facility], 153) 33653: Bead Wrapper/Techni kelle ID = [id number] for Naren palacio Sarwat POC-Glucose [id number] 13:43:00 Test Item Value Reference Range Interpretation Comments POC-Glucose Meter (test 82 mg/dL 70-110 : TE STED AT [facility] code = 1538) [address] [place] [address], 770 30: Bead Wrapper/Techni kelle ID = [id number] for RENETTA STEARNS Lab Interpretation (test Normal code = 72455-1) [facility] [id number] 13:43:00 Test Item Value Reference Range Interpretation Comments POC-GLUCOSE METER 82 mg/dL 70-110 : TESTED A T [facility] 6720 (BEAKER) (test code = [facility], 153) 22061: Bead Wrapper/Techni kelle ID = [id number] for RENETTA STEARNS POCT-GLUCOSE [id number] 08:55:17 Test Item Value Reference Range Interpretation Comments POC-GLUCOSE METER 85 mg/dL 70-110 : TESTED A T [facility] 6720 (BEAKER) (test code = [place], 1538) [address]: Bead Wrapper/Techni kelle ID = [id number] for EDMUNDO DÍAZ RAD, CHEST, 1 VIEW, NON [id number] 07:19:00Reason for exam:->post-opShould this be performed at the bedside?->Yes [facility] : 1955 Sex: [...] Conteh Verified Date/Time: 07/03/2021 07:19:27 Reading Location: [facility] Radiology Reading Room BASIC METABOLIC [id number] 04:12:43 Test Item Value Reference Range Interpretation [...] S NOT APPLICABLE FOR DIALYSIS PATIEN TS. Bead Wrapper ID Bassam BLEDSOE [id number] 03:43:29 Test Item Value Reference Range Interpretation Comments MAGNESIUM (BEAKER) (test code = 2.1 mg/dL 1.6-2.6 627) Bead Wrapper ID Bassam BLED[place]E [id number] 03:43:29 Test Item Value Reference Range Interpretation Comments PHOSPHORUS (BEAKER) (test code = 3.4 mg/dL 2.3-4.7 604) Bead Wrapper ID Bassam BLEDSOE WCBC (HEMOGRAM ONLY)2021-07-03 03:25:24 [...] WBC 0-0 (test code = 413) POC-Glucose [id number] 21:37:50 Test Item Value Reference Range Interpretation Comments POC-Glucose Meter (test 97 mg/dL 70-110 : TE STED AT [facility] code = 1538) [address] [facility], 770 30: Bead Wrapper/Techni kelle ID = [id number] for WASHINGTON MACKENZIE Lab Interpretation (test Normal code = 45416-5) [facility] [id number] 21:37:50 Test Item Value Reference Range Interpretation Comments POC-GLUCOSE METER 97 mg/dL 70-110 : TESTED A T [facility] 6720 (BEAKER) (test code = [facility], 153) 68081: Bead Wrapper/Techni kelle ID = [id number] for NATALIA RO MACKENZIE POCT-GLUCOSE [id number] 18:00:54 Test Item Value Reference Range Interpretation Comments POC-GLUCOSE METER 166 mg/dL 70-110 H : TESTED A T [facility] 6720 (BEAKER) (test code = [facility], 153) 35511: Bead Wrapper/Techni kelle ID = [id number] for Ba rrera, Kayla POCT-GLUCOSE [id number] 13:01:12 Test Item Value Reference Range Interpretation Comments POC-GLUCOSE METER 169 mg/dL 70-110 H : TESTED A T [facility] 6720 (BEAKER) (test code = [facility], 153) 33625: Bead Wrapper/Techni kelle ID = [id number] for Ba rrera, Kayla POC-Glucose [id number] 08:45:07 Test Item Value Reference Range Interpretation Comments POC-Glucose Meter (test 134 mg/dL 70-110 H : TE STED AT [facility] code = 1538) [address] [facility], 770 30: Bead Wrapper/Techni kelle ID = [id number] for Nawaf Freitas Lab Interpretation (test Abnormal code = 98757-3) [facility] [id number] 08:45:07 Test Item Value Reference Range Interpretation Comments POC-GLUCOSE METER 134 mg/dL 70-110 H : TESTED A T [facility] 6720 (AKASH) (test code = [place]UD[place], 1538) 28786: Bead Wrapper/Techni kelle ID = [id number] for Kayla Emanuel RAD, CHEST, 1 VIEW, NON [id number] 08:36:00Reason for exam:->post-opShould this be performed at the bedside?->Yes [facility] 1955 Sex: FFINAL REPORT [...] Conteh MDReport Verified Date/Time: 07/02/2021 08:36:36Reading Location: [facility] Radiology Reading Room Basic Metabolic [id number] 07:06:58 Test Item Value Reference Range Interpretation Comments Sodium (test code = 137 meq/L 720-214 1462-2) Potassium (test code = 3.9 meq/L 3.5-5.1 2823-3) Chloride (test code = 101 meq/L 98-107 2075-0) CO2 (test code = 28 meq/L 22-29 2028-9) BUN (test code = 23 mg/dL 7-21 H 3094-0) Creatinine (test code 3.16 mg/dL 0.57-1.25 H = 2160-0) Glucose (test code = 150 mg/dL 70-105 H 2345-7) Calcium (test code = 8.1 mg/dL 8.4-10.2 L 88250-0) EGFR (test code = 15 mL/min/1.73 [place] [address]-2) NOT ACCURATE CREATININE CLEARANCE IN PREDICTING GLOMERULAR FILTRATION RATE . ESTIMATED GFR I S NOT APPLICABLE FOR DIALYSIS PATIENTS. BRANDI (test code = BRANDI) Bead Wrapper ID - PIAYA L Lab Interpretation Abnormal (test code = 63353-6) [facility] [id number] 07:06:58 Test Item Value Reference Range Interpretation Comments SODIUM (BEAKER) 137 meq/L 136-145 (test code = 381) POTASSIUM (BEAKER) 3.9 meq/L 3.5-5.1 (test code = 379) CHLORIDE (BEAKER) 101 meq/L 98-107 (test code = 382) CO2 (BEAKER) (test 28 meq/L -29 code = 355) BLOOD UREA NITROGEN 23 [...] S NOT APPLICABLE FOR DIALYSIS PATIEN TS. Bead Wrapper ID - LIANA FEnjrfeffq6700-92-02 07:06:52 Test Item Value Reference Range Interpretation Comments Magnesium (test code = 1.9 mg/dL 1.6-2.6 81228-8) BRANDI (test code = BRANDI) Bead Wrapper ID - LIANA L Lab Interpretation (test Normal code = 52138-2) [facility]2022-[facility] 07:06:52 Test Item Value Reference Range Interpretation Comments Phosphorus (test code = 2.6 mg/dL 2.3-4.7 2777-1) BRANDI (test code = BRANDI) Bead Wrapper ID - LIANA L Lab Interpretation (test Normal code = 82191-1) [facility]2022-[facility]-31 07:06:52 Test Item Value Reference Range Interpretation Comments MAGNESIUM (BEAKER) (test code = 1.9 mg/dL 1.6-2.6 627) Bead Wrapper ID - LIANA ROUSVLXLSTL9752-07-43 07:06:52 Test Item Value Reference Range Interpretation Comments PHOSPHORUS (BEAKER) (test code = 2.6 mg/dL 2.3-4.7 604) Bead Wrapper ID - LIANA LCBC (Hemogram only)2021-07-02 05:56:49 Test Item Value Reference Range Interpretation Comments WBC (test code = 6690-2) 4.6 See_Comment [A utomated message] The system Blaze D[employer] generated this result transmitted ref erence range: 3.5 - 10 .5 K/L. The refe rence range was not u sed to interpret this result as normal/abnor mal. RBC (test code = 789-8) 2.50 See_Comment L [Au tomated message] The system Blaze DFM generated this result transmitted ref erence range: 3.93 - 5 .22 M/L. The refe rence range was not u sed to interpret this result as normal/abnor mal. MCHC (test code = 786-4) 31.9 See_Comment L [A utomated message] The system Blaze DFM generated this result transmitted ref erence range: [...] L [Aut omated message] 777-3) The system Blaze DFM generated this result transmitted ref erence range: 150 - 45 0 K/CU MM. The referen ce range was not u sed to interpret this result as normal/abnor mal. MPV (test code = 11.3 fL 9.4-12.3 12079-6) nRBC (test code = 413) 0 See_Comment [Aut omated message] The system Blaze DFM generated this result transmitted ref erence range: 0 - 0 /1 00 WBC. The refere nce range was not u sed to interpret this result as normal/abnor mal. Lab Interpretation (test Abnormal code = 94710-1) [facility] (HEMOGRAM ONLY)2021-07-02 05:56:49 Test Item Value [...] WBC 0-0 (test code = 413) POCT-GLUCOSE [id number] 21:57:03 Test Item Value Reference Range Interpretation Comments POC-GLUCOSE METER 179 mg/dL 70-110 H : TESTED A T [facility] 6720 (BEAKER) (test code = [facility], 1538) 14765: Bead Wrapper/Techni kelle ID = [id number] for MACKENZIE GONZALEZ POCT-GLUCOSE [id number] 17:59:08 Test Item Value Reference Range Interpretation Comments POC-GLUCOSE METER 208 mg/dL 70-110 H : TESTED A T [facility] 6720 (BEAKER) (test code = [facility], 153) 16864: Bead Wrapper/Techni kelle ID = [id number] for Loco Hicks POCT-GLUCOSE [id number] 13:37:14 Test Item Value Reference Range Interpretation Comments POC-GLUCOSE METER 118 mg/dL 70-110 H : TESTED A T [facility] 6720 (BEAKER) (test code = [facility], 153) 78861: Bead Wrapper/Techni kelle ID = [id number] for Millie Toledo RAD, CHEST, 1 VIEW, NON [id number] 09:58:00Reason for exam:->post-opShould this be performed at the bedside?->Yes [facility] LINDSAY : 1955 Sex: FFINAL [...] Conteh Verified Date/Time: 07/01/2021 09:58:13 Reading Location: [facility] Radiology Reading Room POC-Glucose [id number] 08:48:09 Test Item Value Reference Range Interpretation Comments POC-Glucose Meter (test 127 mg/dL 70-110 H : TE STED AT [facility] code = 1538) 67[address] [facility], 770 30: Bead Wrapper/Techni kelle ID = [id number] for Loco Chapman Lab Interpretation (test Abnormal code = 84335-6) [facility] [id number] 08:48:09 Test Item Value Reference Range Interpretation Comments POC-GLUCOSE METER 127 mg/dL 70-110 H : TESTED A T [facility] 6720 (BEAKER) (test code = [facility], 1538) 04400: Bead Wrapper/Techni kelle ID = [id number] for Loco Hicks Basic Metabolic [id number] 06:34:36 Test Item Value Reference Range Interpretation [...] (test code = 8.2 mg/dL 8.4-10.2 L 39009-8) EGFR (test code = 10 mL/min/1.[place] [address]-9) NOT ACCURATE CREATININE CLEARANCE IN PREDICTING GLOMERULAR FILTRATION RATE . ESTIMATED GFR I S NOT APPLICABLE FOR DIALYSIS PATIENTS. BRANDI (test code = BRANDI) Bead Wrapper ID - PIAYA L Lab Interpretation Abnormal (test code = 06727-3) [facility] METABOLIC [id number] 06:34:36 Test Item Value Reference Range Interpretation [...] S NOT APPLICABLE FOR DIALYSIS PATIEN TS. Bead Wrapper ID - PIAYA VVexponzud0579-78-71 06:26:43 Test Item Value Reference Range Interpretation Comments Magnesium (test code = 2.1 mg/dL 1.6-2.6 01731-4) BRANDI (test code = BRANDI) Bead Wrapper ID - PIAYA L Lab Interpretation (test Normal code = 19619-3) [facility]2022-03-30 06:26:43 Test Item Value Reference Range Interpretation Comments Phosphorus (test code = 3.6 mg/dL 2.3-4.7 2777-1) BRANDI (test code = BRANDI) Bead Wrapper ID - LIANA Guevara Lab Interpretation (test Normal code = 59143-6) [id number] 06:26:43 Test Item Value Reference Range Interpretation Comments MAGNESIUM (BEAKER) (test code = 2.1 mg/dL 1.6-2.6 627) Bead Wrapper ID - LIANA GXJKGUQJRHQ0442-86-54 06:26:43 Test Item Value Reference Range Interpretation Comments PHOSPHORUS (BEAKER) (test code = 3.6 mg/dL 2.3-4.7 604) Bead Wrapper ID - LIANA LCBC (Hemogram only)2021-07-01 05:41:20 Test Item Value Reference Range Interpretation Comments WBC (test code = 6690-2) 4.8 See_Comment [A utomated message] The system Blaze DFM generated this result transmitted ref erence range: 3.5 - 10 .5 K/L. The refe rence range was not u sed to interpret this result as normal/abnor mal. RBC (test code = 789-8) 2.60 See_Comment L [Au tomated message] The system Blaze DFM generated this result transmitted ref erence range: 3.93 - 5 .22 M/L. The refe rence range was not u sed to interpret this result as normal/abnor mal. MCHC (test code = 786-4) 32.1 See_Comment L [A utomated message] The system Blaze DFM generated this result transmitted ref erence range: [...] = 75 See_Comment L [Aut omated message] 587-3) The system Blaze DFM generated this result transmitted ref erence range: 150 - 45 0 K/CU MM. The referen ce range was not u sed to interpret this result as normal/abnor mal. MPV (test code = 11.3 fL 9.4-12.3 35953-6) nRBC (test code = 413) 0 See_Comment [Aut omated message] The system Blaze DFM generated this result transmitted ref erence range: 0 - 0 /1 00 WBC. The refere nce range was not u sed to interpret this result as normal/abnor mal. Lab Interpretation (test Abnormal code = 92921-2) [facility] (HEMOGRAM ONLY)2021-07-01 05:41:20 Test Item Value [...] WBC 0-0 (test code = 413) POCT-GLUCOSE [id number] 21:14:47 Test Item Value Reference Range Interpretation Comments POC-GLUCOSE METER 159 mg/dL 70-110 H : TESTED A T [facility] 6720 (BEAKER) (test code = YUDY [place] [facility], 1538) 34234: Bead Wrapper/Techni kelle ID = [id number] for RO MACKENZIE DANIELS RAD, ABDOMEN/KUB, 1 VIEW [id number] 18:59:00Reason for exam:- >constipationShould this be performed at the bedside?->Yes [facility] : 1955 Sex: FFINAL REPORT Exam: RAD, ABDOMEN/KUB, 1 VIEW APDate: 06/30/2021 6:58 PM Indication:constipation COMPARISON: 06/24/2021 DISCUSSION/IMPRESSION: The lower thorax is within normal limits. Nonspecific bowel gas pattern. No evidence of free air within the limitations of this study. Signed: Kb Gregorio Verified Date/Time: 06/30/2021 18:59:30 Reading Location: [address] Reading Room POCT-GLUCOSE [id number] 17:39:03 Test Item Value Reference Range Interpretation Comments POC-GLUCOSE METER 204 mg/dL 70-110 H : TESTED A T [facility] 6720 (Macromill) (test code = YUDY [place] [facility], 153) 97452: Bead Wrapper/Techni kelel ID = [id number] for OR JAMIR EDMUNDO POCT-GLUCOSE [id number] 12:35:41 Test Item Value Reference Range Interpretation Comments POC-GLUCOSE METER 136 mg/dL 70-110 H : TESTED A T [facility] 6720 (AKASH) (test code = YUDY Vaca [facility], 1538) 90440: Bead Wrapper/Techni kelle ID = [id number] for OR EDMUNDO BOWIE RAD, CHEST, 1 VIEW, NON [id number] 09:21:00Reason for exam:->post-opShould this be performed at the bedside?->Yes [facility] : 1955 Sex: FFINAL REPORT [...] Conteh Verified Date/Time: 06/30/2021 09:21:42 Reading Location: [facility] Radiology Reading Room POCT-GLUCOSE [id number] 08:26:49 Test Item Value Reference Range Interpretation Comments POC-GLUCOSE METER 132 mg/dL 70-110 H : TESTED A T [facility] 6720 (AKASH) (test code = [place]UD[place], 153) 27933: Bead Wrapper/Techni kelle ID = [id number] for OR JAMIR EDMUNDO BASIC METABOLIC [id number] 05:31:46 Test Item Value Reference Range Interpretation Comments SODIUM (AKASH) 136 meq/L 136-145 (test code = 381) [...] 697) EGFR (BEAKER) (test 14 mL/min/1.73 ESTIMA LEIV GFR IS code = 1092) sq m NOT ACCURATE CREATININE CLEARANCE IN PREDICTING GLOMERULAR FILTRATION RATE . ESTIMATED GFR I S NOT APPLICABLE FOR DIALYSIS PATIEN TS. Bead Wrapper ID - PIKEZIA [id number] 05:28:01 Test Item Value Reference Range Interpretation Comments MAGNESIUM (BEAKER) (test code = 1.8 mg/dL 1.6-2.6 627) Bead Wrapper ID - PIKEZIA [id number] 05:28:01 Test Item Value Reference Range Interpretation Comments PHOSPHORUS (BEAKER) (test code = 2.6 mg/dL 2.3-4.7 604) Bead Wrapper ID - LIANA LCBC (HEMOGRAM ONLY)2021-06-30 05:03:10 [...] 0-0 (test code = 413) Prepare Leuko-Red [id number] 23:54:00 Test Item Value Reference Range Interpretation Comments CROSSMATCH (test code = 2264) COMPATIBLE Unit ABO (test code = O Pos 7875703) UNIT NUMBER (test code = [id number] 934-0) Status (test code = 4181379) [place]_TIMEINCHART Blood Bank Product (test code RED BLOOD CELLS = 2263) PRODUCT CODE (test code = Y1382F50 933-2) [facility] [id number] 23:54:00 Test Item Value Reference Range Interpretation Comments CROSSMATCH (test code = 2264) COMPATIBLE Unit ABO (test code = O Pos 3645942) UNIT NUMBER (test code = [id number] 934-0) Status (test code = 6952870) TX_TIMEINCHART Blood Bank Product (test code RED BLOOD CELLS = 2263) PRODUCT CODE (test code = P4178I51 933-2) [facility]uko[facility]Red [id number] 23:54:00 Test Item Value Reference Range Interpretation Comments CROSSMATCH (test code = 2264) COMPATIBLE Unit ABO (test code = O Pos 4375629) UNIT NUMBER (test code = [id number] 934-0) Status (test code = 0149518) TX_TIMEINCHART Blood Bank Product (test code RED BLOOD CELLS = 2263) PRODUCT CODE (test code = W1605F08 933-2) [facility] Leuko-Red [id number] 23:54:00 Test Item Value Reference Range Interpretation Comments CROSSMATCH (test code = 2264) COMPATIBLE Unit ABO (test code = O Pos 4574647) UNIT NUMBER (test code = [id number] 934-0) Status (test code = 3714265) TX_TIMEINCHART Blood Bank Product (test code RED BLOOD CELLS = 2263) PRODUCT CODE (test code = Q3576U97 933-2) [facility] Leuko-Red [id number] 23:54:00 Test Item Value Reference Range Interpretation Comments CROSSMATCH (test code = 2264) COMPATIBLE Unit ABO (test code = O Pos 3936349) UNIT NUMBER (test code = [id number] 934-0) Status (test code = 7768254) TX_TIMEINCHART Blood Bank Product (test code RED BLOOD CELLS = 2263) PRODUCT CODE (test code = H8994L36 933-2) [facility]Red [id number] 23:54:00 Test Item Value Reference Range Interpretation Comments CROSSMATCH (test code = 2264) COMPATIBLE Unit ABO (test code = O Pos 6367542) UNIT NUMBER (test code = [id number] 934-0) Status (test code = 9517365) [place]INCC[facility] Blood Bank Product (test code RED BLOOD CELLS = 2263) PRODUCT CODE (test code = W0778J49 933-2) [facility] Leuko-Red [id number] 23:54:00 Test Item Value Reference Range Interpretation Comments CROSSMATCH (test code = 2264) COMPATIBLE Unit ABO (test code = O Pos 5453958) UNIT NUMBER (test code = [id number] 934-0) Status (test code = 6728056) TX_TIMEINCHART Blood Bank Product (test code RED BLOOD CELLS = 2263) PRODUCT CODE (test code = K0354N43 933-2) [facility] Leuko-Red [id number] 23:54:00 Test Item Value Reference Range Interpretation Comments CROSSMATCH (test code = 2264) COMPATIBLE Unit ABO (test code = O Pos 0574137) UNIT NUMBER (test code = [id number] 934-0) Status (test code = 8742235) [place] Blood Bank Product (test code RED BLOOD CELLS = 2263) PRODUCT CODE (test code = T4771H62 933-2) [facility] Leuko-Red [id number] 23:54:00 Test Item Value Reference Range Interpretation Comments CROSSMATCH (test code = 2264) COMPATIBLE Unit ABO (test code = O Pos 4403261) UNIT NUMBER (test code = [id number] 934-0) Status (test code = 0852782) [place] Blood Bank Product (test code RED BLOOD CELLS = 2263) PRODUCT CODE (test code = F1155I64 933-2) [facility] HospitalPO[facility] [id number] 22:04:06 Test Item Value Reference Range Interpretation Comments POC-GLUCOSE METER 149 mg/dL 70-110 H : TESTED A T [facility] 6720 (BEAKER) (test code = [facility], 153) 30002: Bead Wrapper/Techni kelle ID = [id number] for [place]errada, Ti pastora POCT-GLUCOSE [id number] 17:55:17 Test Item Value Reference Range Interpretation Comments POC-GLUCOSE METER 150 mg/dL 70-110 H : TESTED A T [facility] 6720 (BEAKER) (test code = [facility], 1538) 00642: Bead Wrapper/Techni kelle ID = [id number] for OR PHEY, EDMUNDO POCT-GLUCOSE [id number] 15:31:47 Test Item Value Reference Range Interpretation Comments POC-GLUCOSE METER 155 mg/dL 70-110 H : TESTED A T [facility] 6720 (BEAKER) (test code = [facility], 1538) 16473: Bead Wrapper/Techni kelle ID = [id number] for OR PHEY, EDMUNDO RAD, CHEST, 1 VIEW, NON [id number] 10:41:00Reason for exam:->post-opShould this be performed at the bedside?->Yes [facility] : 1955 Sex: FFINAL REPORT [...] Conteh Verified Date/Time: 06/29/2021 10:41:18 Reading Location: [facility] Radiology Reading Room POC-Glucose [id number] 08:51:04 Test Item Value Reference Range Interpretation Comments POC-Glucose Meter (test 208 mg/dL 70-110 H : TE STED AT [facility] code = 1538) 67[address] [facility], 770 30: Bead Wrapper/Techni kelle ID = [id number] for ORPHEY, EDMUNDO Lab Interpretation (test Abnormal code = 68116-5) [facility] HospitalPOC-Glucose [id number] 08:51:04 Test Item Value Reference Range Interpretation Comments POC-Glucose Meter (test 208 mg/dL 70-110 H : TE STED AT [facility] code = 1538) 67[address] [facility], 770 30: Bead Wrapper/Techni kelle ID = [id number] for ORPHEY, EDMUNDO Lab Interpretation (test Abnormal code = 15627-0) [facility] HospitalPO[facility] [id number] 08:51:04 Test Item Value Reference Range Interpretation Comments POC-GLUCOSE METER 208 mg/dL 70-110 H : TESTED A T [facility] 6720 (BEAKER) (test code = [place]UD[place], 1538) 92701: Bead Wrapper/Techni kelle ID = [id number] for OR EDMUNDO BOWIE Basic Metabolic [id number] 06:07:27 Test Item Value Reference Range Interpretation [...] (test code = 8.0 mg/dL 8.4-10.2 L 66299-2) EGFR (test code = 9 mL/min/1.[place] [address]-9) NOT ACCURATE CREATININE CLEARANCE IN PREDICTING GLOMERULAR FILTRATION RATE . ESTIMATED GFR I S NOT APPLICABLE FOR DIALYSIS PATIENTS. BRANDI (test code = BRANDI) Bead Wrapper ID - HIEN Dennis Lab Interpretation Abnormal (test code = 40166-8) [facility] Hospital[facility] Metabolic [id number] 06:07:27 Test Item Value Reference Range Interpretation [...] (test code = 8.0 mg/dL 8.4-10.2 L 60622-6) EGFR (test code = 9 mL/min/1.[place] [address]-0) NOT ACCURATE CREATININE CLEARANCE IN PREDICTING GLOMERULAR FILTRATION RATE . ESTIMATED GFR I S NOT APPLICABLE FOR DIALYSIS PATIENTS. BRANDI (test code = BRANDI) Bead Wrapper [facility] - HIEN M Lab Interpretation Abnormal (test code = 74202-0) [facility] Metabolic [id number] 06:07:27 Test Item Value Reference Range Interpretation [...] (test code = 8.0 mg/dL 8.4-10.2 L 12460-3) EGFR (test code = 9 mL/min/1.[place] [address]-4) NOT ACCURATE CREATININE CLEARANCE IN PREDICTING GLOMERULAR FILTRATION RATE . ESTIMATED GFR I S NOT APPLICABLE FOR DIALYSIS PATIENTS. BRANDI (test code = BRANDI) Bead Wrapper [employer] Lab Interpretation Abnormal (test code = 36142-0) [facility] METABOLIC [id number] 06:07:27 Test Item Value Reference Range Interpretation [...] S NOT APPLICABLE FOR DIALYSIS PATIEN TS. Bead Wrapper ID - HIEN HMpjgycssas0195-26-76 06:05:44 Test Item Value Reference Range Interpretation Comments Phosphorus (test code = 2.5 mg/dL 2.3-4.7 2777-1) BRANDI (test code = BRANDI) Bead Wrapper ID - [facility] Lab Interpretation (test Normal code = 60479-4) [facility]2022-03-28 06:05:44 Test Item Value Reference Range Interpretation Comments Phosphorus (test code = 2.5 mg/dL 2.3-4.7 2777-1) BRANDI (test code = BRANDI) Bead Wrapper ID - [facility] Lab Interpretation (test Normal code = 71341-4) [facility]2022-03-28 06:05:44 Test Item Value Reference Range Interpretation Comments Phosphorus (test code = 2.5 mg/dL 2.3-4.7 2777-1) BRANDI (test code = BRANDI) Bead Wrapper ID - HIEN Lab Interpretation (test Normal code = 00088-3) [facility]OSPHORUS2022-03-28 06:05:44 Test Item Value Reference Range Interpretation Comments PHOSPHORUS (BEAKER) (test code = 2.5 mg/dL 2.3-4.7 604) Bead Wrapper ID - [facility] ZFxpnbpzgs1654-71-64 06:05:43 Test Item Value Reference Range Interpretation Comments Magnesium (test code = 2.2 mg/dL 1.6-2.6 17676-3) BRANDI (test code = BRANDI) Bead Wrapper ID - HIEN Lab Interpretation (test Normal code = 07623-5) [facility]2022-03-28 06:05:43 Test Item Value Reference Range Interpretation Comments Magnesium (test code = 2.2 mg/dL 1.6-2.6 81164-9) BRANDI (test code = BRANDI) Bead Wrapper ID - HIEN M Lab Interpretation (test Normal code = 77971-1) [facility] 06:05:43 Test Item Value Reference Range Interpretation Comments Magnesium (test code = 2.2 mg/dL 1.6-2.6 80237-0) BRANDI (test code = BRANDI) Bead Wrapper ID - HIEN M Lab Interpretation (test Normal code = 91553-1) [facility] 06:05:43 Test Item Value Reference Range Interpretation Comments MAGNESIUM (BEAKER) (test code = 2.2 mg/dL 1.6-2.6 627) Bead Wrapper ID - HIEN [facility] (Hemogram only)2021-06-29 05:32:19 Test Item Value Reference Range Interpretation Comments WBC (test code = 6690-2) 4.7 See_Comment [A utomated message] The system [employer]aze DFM generated this result transmitted ref erence range: 3.5 - 10 .5 K/L. The refe rence range was not u sed to interpret this result as normal/abnor mal. RBC (test code = 789-8) 2.94 See_Comment L [Au tomated message] The system [employer] D[employer] generated this result transmitted ref erence range: 3.93 - 5 .22 M/L. The refe rence range was not u sed to interpret this result as normal/abnor mal. MCHC (test code = 786-4) 31.8 See_Comment L [A utomated message] The system [employer] D[employer] generated this result transmitted ref erence range: [...] = 65 See_Comment L [Aut omated message] 427-3) The system [employer] D[employer] generated this result transmitted ref erence range: 150 - 45 0 K/CU MM. The referen ce range was not u sed to interpret this result as normal/abnor mal. MPV (test code = 12.2 fL 9.4-12.3 51501-0) nRBC (test code = 413) 0 See_Comment [Aut omated message] The system [employer] D[employer] generated this result transmitted ref erence range: 0 - 0 /1 00 WBC. The refere nce range was not u sed to interpret this result as normal/abnor mal. Lab Interpretation (test Abnormal code = 31240-5) [facility] (Hemogram only)2021-06-29 05:32:19 Test Item Value Reference Range Interpretation Comments WBC (test code = 6690-2) 4.7 See_Comment [A utomated message] The system [employer] D[employer] generated this result transmitted ref erence range: 3.5 - 10 .5 K/L. The refe rence range was not u sed to interpret this result as normal/abnor mal. RBC (test code = 789-8) 2.94 See_Comment L [Au tomated message] The system [employer] D[employer] generated this result transmitted ref erence range: 3.93 - 5 .22 M/L. The refe rence range was not u sed to interpret this result as normal/abnor mal. MCHC (test code = 786-4) 31.8 See_Comment L [A utomated message] The system [employer] generated this result transmitted ref erence range: [...] L [Aut omated message] 777-3) The system [employer] D[employer] generated this result transmitted ref erence range: 150 - 45 0 K/CU MM. The referen ce range was not u sed to interpret this result as normal/abnor mal. MPV (test code = 12.2 fL 9.4-12.3 88023-9) nRBC (test code = 413) 0 See_Comment [Aut omated message] The system [employer] D[employer] generated this result transmitted ref erence range: 0 - 0 /1 00 WBC. The refere nce range was not u sed to interpret this result as normal/abnor mal. Lab Interpretation (test Abnormal code = 36966-6) [facility] (Hemogram only)2021-06-29 05:32:19 Test Item Value Reference Range Interpretation Comments WBC (test code = 6690-2) 4.7 See_Comment [A utomated message] The system [employer] D[employer] generated this result transmitted ref erence range: 3.5 - 10 .5 K/L. The refe rence range was not u sed to interpret this result as normal/abnor mal. RBC (test code = 789-8) 2.94 See_Comment L [Au tomated message] The system [employer] D[employer] generated this result transmitted ref erence range: 3.93 - 5 .22 M/L. The refe rence range was not u sed to interpret this result as normal/abnor mal. MCHC (test code = 786-4) 31.8 See_Comment L [A utomated message] The system [employer] D[employer] generated this result transmitted ref erence range: [...] L [Aut omated message] 777-3) The system [employer] DFM generated this result transmitted ref erence range: 150 - 45 0 K/CU MM. The referen ce range was not u sed to interpret this result as normal/abnor mal. MPV (test code = 12.2 fL 9.4-12.3 16885-8) nRBC (test code = 413) 0 See_Comment [Aut omated message] The system [employer] generated this result transmitted ref erence range: 0 - 0 /1 00 WBC. The refere nce range was not u sed to interpret this result as normal/abnor mal. Lab Interpretation (test Abnormal code = 19622-2) [facility] (HEMOGRAM ONLY)2021-06-29 05:32:19 Test Item Value [...] WBC 0-0 (test code = 413) POC-Glucose [id number] 19:54:37 Test Item Value Reference Range Interpretation Comments POC-Glucose Meter (test 188 mg/dL 70-110 H : TE STED AT [facility] code = 1538) [address] [place], [address]: Bead Wrapper/Techni kelle ID = [id number] for RAMON SPRING Lab Interpretation (test Abnormal code = 45427-8) [id number] 19:54:37 Test Item Value Reference Range Interpretation Comments POC-GLUCOSE METER 188 mg/dL 70-110 H : TESTED A T [facility] (BEAKER) (test code = [address] [place], 1538) [address]: Bead Wrapper/Techni kelle ID = [id number] for RAMON FLORES POCT-GLUCOSE [id number] 17:33:41 Test Item Value Reference Range Interpretation Comments POC-GLUCOSE METER 166 mg/dL 70-110 H : TESTED A T [facility] [address] (BEAKER) (test code = [address] [place], [address]38) [address]: Bead Wrapper/Techni kelle ID = [id number] for Kayla Emanuel CBC with platelet count + automated [id number] 15:34:06 Test Item Value Reference Range Interpretation Comments WBC (test code = 6690-2) 4.6 See_Comment [A utomated message] The system [employer] generated this result transmitted ref erence range: 3.5 - 10 .5 K/L. The refe rence range was not u sed to interpret this result as normal/abnor mal. RBC (test code = 789-8) 2.86 See_Comment L [Au tomated message] The system [employer] generated this result transmitted ref erence range: 3.93 - 5 .22 M/L. The refe rence range was not u sed to interpret this result as normal/abnor mal. MCHC (test code = 786-4) 32.1 See_Comment L [A utomated message] The system [employer] generated this result transmitted ref erence range: [...] L [Aut omated message] 777-3) The system [employer] generated this result transmitted ref erence range: 150 - 45 0 K/CU MM. The referen ce range was not u sed to interpret this result as normal/abnor mal. MPV (test code = 11.0 fL 9.4-12.3 38943-7) nRBC (test code = 413) 0 See_Comment [Aut omated message] The system [employer] generated this result transmitted ref erence range: [...] See_Comment [Aut omated message] 670) The system [employer] generated this result transmitted ref erence range: 1.56 - 6 .13 K/L. The refe rence range was not u sed to interpret this result as normal/abnor mal. # Lymphs (test code = 0.73 See_Comment L [Auto mated message] 414) The system [employer] generated this result transmitted ref erence range: 1.18 - 3 .74 K/L. The refe rence range was not u sed to interpret this result as normal/abnor mal. # Monos (test code = 0.62 See_Comment H [Autom ated message] 415) The system [employer] generated this result transmitted ref erence range: 0.24 - 0 .36 K/L. The refe rence range was not u sed to interpret this result as normal/abnor mal. # Eos (test code = 416) 0.24 See_Comment [Au tomated message] The system [employer] generated this result transmitted ref erence range: 0.04 - 0 .36 K/L. The refe rence range was not u sed to interpret this result as normal/abnor mal. # Baso (test code = 417) 0.04 See_Comment [A utomated message] The system [employer] generated this result transmitted ref erence range: 0.01 - 0 .08 K/L. The refe rence range was not u sed to interpret this result as normal/abnor mal. Immature 0 % 0-1 Granulocytes-Relative (test code = 2801) Lab Interpretation (test Abnormal code = 98253-7) [facility] with platelet count + automated [id number] 15:34:06 Test Item Value Reference Range Interpretation Comments WBC (test code = 6690-2) 4.6 See_Comment [A utomated message] The system [employer] generated this result transmitted ref erence range: 3.5 - 10 .5 K/L. The refe rence range was not u sed to interpret this result as normal/abnor mal. RBC (test code = 789-8) 2.86 See_Comment L [Au tomated message] The system [employer] generated this result transmitted ref erence range: 3.93 - 5 .22 M/L. The refe rence range was not u sed to interpret this result as normal/abnor mal. MCHC (test code = 786-4) 32.1 See_Comment L [A utomated message] The system [employer] generated this result transmitted ref erence range: [...] L [Aut omated message] 777-3) The system [employer] generated this result transmitted ref erence range: 150 - 45 0 K/CU MM. The referen ce range was not u sed to interpret this result as normal/abnor mal. MPV (test code = 11.0 fL 9.4-12.3 51413-9) nRBC (test code = 413) 0 See_Comment [Aut omated message] The system [employer] generated this result transmitted ref erence range: [...] See_Comment [Aut omated message] 670) The system [employer] generated this result transmitted ref erence range: 1.56 - 6 .13 K/L. The refe rence range was not u sed to interpret this result as normal/abnor mal. # Lymphs (test code = 0.73 See_Comment L [Auto mated message] 414) The system [employer] generated this result transmitted ref erence range: 1.18 - 3 .74 K/L. The refe rence range was not u sed to interpret this result as normal/abnor mal. # Monos (test code = 0.62 See_Comment H [Autom ated message] 415) The system [employer] generated this result transmitted ref erence range: 0.24 - 0 .36 K/L. The refe rence range was not u sed to interpret this result as normal/abnor mal. # Eos (test code = 416) 0.24 See_Comment [Au tomated message] The system [employer] generated this result transmitted ref erence range: 0.04 - 0 .36 K/L. The refe rence range was not u sed to interpret this result as normal/abnor mal. # Baso (test code = 417) 0.04 See_Comment [A utomated message] The system [employer] generated this result transmitted ref erence range: 0.01 - 0 .08 K/L. The refe rence range was not u sed to interpret this result as normal/abnor mal. Immature 0 % 0-1 Granulocytes-Relative (test code = 2801) Lab Interpretation (test Abnormal code = 98441-5) [facility] with platelet count + automated [id number] 15:34:06 Test Item Value Reference Range Interpretation Comments WBC (test code = 6690-2) 4.6 See_Comment [A utomated message] The system [employer] generated this result transmitted ref erence range: 3.5 - 10 .5 K/L. The refe rence range was not u sed to interpret this result as normal/abnor mal. RBC (test code = 789-8) 2.86 See_Comment L [Au tomated message] The system [employer] generated this result transmitted ref erence range: 3.93 - 5 .22 M/L. The refe rence range was not u sed to interpret this result as normal/abnor mal. MCHC (test code = 786-4) 32.1 See_Comment L [A utomated message] The system [employer] generated this result transmitted ref erence range: [...] L [Aut omated message] 777-3) The system [employer] generated this result transmitted ref erence range: 150 - 45 0 K/CU MM. The referen ce range was not u sed to interpret this result as normal/abnor mal. MPV (test code = 11.0 fL 9.4-12.3 73425-9) nRBC (test code = 413) 0 See_Comment [Aut omated message] The system [employer] generated this result transmitted ref erence range: [...] See_Comment [Aut omated message] 670) The system [employer] generated this result transmitted ref erence range: 1.56 - 6 .13 K/L. The refe rence range was not u sed to interpret this result as normal/abnor mal. # Lymphs (test code = 0.73 See_Comment L [Auto mated message] 414) The system [employer] generated this result transmitted ref erence range: 1.18 - 3 .74 K/L. The refe rence range was not u sed to interpret this result as normal/abnor mal. # Monos (test code = 0.62 See_Comment H [Autom ated message] 415) The system [employer] generated this result transmitted ref erence range: 0.24 - 0 .36 K/L. The refe rence range was not u sed to interpret this result as normal/abnor mal. # Eos (test code = 416) 0.24 See_Comment [Au tomated message] The system [employer] generated this result transmitted ref erence range: 0.04 - 0 .36 K/L. The refe rence range was not u sed to interpret this result as normal/abnor mal. # Baso (test code = 417) 0.04 See_Comment [A utomated message] The system [employer] generated this result transmitted ref erence range: 0.01 - 0 .08 K/L. The refe rence range was not u sed to interpret this result as normal/abnor mal. Immature 0 % 0-1 Granulocytes-Relative (test code = 2801) Lab Interpretation (test Abnormal code = 25904-4) [facility] with platelet count + automated [id number] 15:34:06 Test Item Value Reference Range Interpretation Comments WBC (test code = 6690-2) 4.6 See_Comment [A utomated message] The system [employer] generated this result transmitted ref erence range: 3.5 - 10 .5 K/L. The refe rence range was not u sed to interpret this result as normal/abnor mal. RBC (test code = 789-8) 2.86 See_Comment L [Au tomated message] The system [employer] generated this result transmitted ref erence range: 3.93 - 5 .22 M/L. The refe rence range was not u sed to interpret this result as normal/abnor mal. MCHC (test code = 786-4) 32.1 See_Comment L [A utomated message] The system [employer] generated this result transmitted ref erence range: [...] L [Aut omated message] 777-3) The system [employer] generated this result transmitted ref erence range: 150 - 45 0 K/CU MM. The referen ce range was not u sed to interpret this result as normal/abnor mal. MPV (test code = 11.0 fL 9.4-12.3 68527-0) nRBC (test code = 413) 0 See_Comment [Aut omated message] The system [employer] generated this result transmitted ref erence range: [...] See_Comment [Aut omated message] 670) The system [employer] generated this result transmitted ref erence range: 1.56 - 6 .13 K/L. The refe rence range was not u sed to interpret this result as normal/abnor mal. # Lymphs (test code = 0.73 See_Comment L [Auto mated message] 414) The system [employer] generated this result transmitted ref erence range: 1.18 - 3 .74 K/L. The refe rence range was not u sed to interpret this result as normal/abnor mal. # Monos (test code = 0.62 See_Comment H [Autom ated message] 415) The system [employer] generated this result transmitted ref erence range: 0.24 - 0 .36 K/L. The refe rence range was not u sed to interpret this result as normal/abnor mal. # Eos (test code = 416) 0.24 See_Comment [Au tomated message] The system [employer] generated this result transmitted ref erence range: 0.04 - 0 .36 K/L. The refe rence range was not u sed to interpret this result as normal/abnor mal. # Baso (test code = 417) 0.04 See_Comment [A utomated message] The system [employer] generated this result transmitted ref erence range: 0.01 - 0 .08 K/L. The refe rence range was not u sed to interpret this result as normal/abnor mal. Immature 0 % 0-1 Granulocytes-Relative (test code = 2801) Lab Interpretation (test Abnormal code = 49242-5) [facility] with platelet count + automated [id number] 15:34:06 Test Item Value Reference Range Interpretation Comments WBC (test code = 6690-2) 4.6 See_Comment [A utomated message] The system [employer] generated this result transmitted ref erence range: 3.5 - 10 .5 K/L. The refe rence range was not u sed to interpret this result as normal/abnor mal. RBC (test code = 789-8) 2.86 See_Comment L [Au tomated message] The system [employer] generated this result transmitted ref erence range: 3.93 - 5 .22 M/L. The refe rence range was not u sed to interpret this result as normal/abnor mal. MCHC (test code = 786-4) 32.1 See_Comment L [A utomated message] The system [employer] generated this result transmitted ref erence range: [...] L [Aut omated message] 777-3) The system [employer] generated this result transmitted ref erence range: 150 - 45 0 K/CU MM. The referen ce range was not u sed to interpret this result as normal/abnor mal. MPV (test code = 11.0 fL 9.4-12.3 51883-1) nRBC (test code = 413) 0 See_Comment [Aut omated message] The system [employer] generated this result transmitted ref erence range: [...] See_Comment [Aut omated message] 670) The system [employer] generated this result transmitted ref erence range: 1.56 - 6 .13 K/L. The refe rence range was not u sed to interpret this result as normal/abnor mal. # Lymphs (test code = 0.73 See_Comment L [Auto mated message] 414) The system [employer] generated this result transmitted ref erence range: 1.18 - 3 .74 K/L. The refe rence range was not u sed to interpret this result as normal/abnor mal. # Monos (test code = 0.62 See_Comment H [Autom ated message] 415) The system [employer] generated this result transmitted ref erence range: 0.24 - 0 .36 K/L. The refe rence range was not u sed to interpret this result as normal/abnor mal. # Eos (test code = 416) 0.24 See_Comment [Au tomated message] The system [employer] generated this result transmitted ref erence range: 0.04 - 0 .36 K/L. The refe rence range was not u sed to interpret this result as normal/abnor mal. # Baso (test code = 417) 0.04 See_Comment [A utomated message] The system [employer] generated this result transmitted ref erence range: 0.01 - 0 .08 K/L. The refe rence range was not u sed to interpret this result as normal/abnor mal. Immature 0 % 0-1 Granulocytes-Relative (test code = 2801) Lab Interpretation (test Abnormal code = 22800-0) [facility] with platelet count + automated [id number] 15:34:06 Test Item Value Reference Range Interpretation Comments WBC (test code = 6690-2) 4.6 See_Comment [A utomated message] The system [employer] generated this result transmitted ref erence range: 3.5 - 10 .5 K/L. The refe rence range was not u sed to interpret this result as normal/abnor mal. RBC (test code = 789-8) 2.86 See_Comment L [Au tomated message] The system [employer] generated this result transmitted ref erence range: 3.93 - 5 .22 M/L. The refe rence range was not u sed to interpret this result as normal/abnor mal. MCHC (test code = 786-4) 32.1 See_Comment L [A utomated message] The system [employer] generated this result transmitted ref erence range: [...] L [Aut omated message] 777-3) The system [employer] generated this result transmitted ref erence range: 150 - 45 0 K/CU MM. The referen ce range was not u sed to interpret this result as normal/abnor mal. MPV (test code = 11.0 fL 9.4-12.3 35774-6) nRBC (test code = 413) 0 See_Comment [Aut omated message] The system [employer] generated this result transmitted ref erence range: [...] See_Comment [Aut omated message] 670) The system [employer] generated this result transmitted ref erence range: 1.56 - 6 .13 K/L. The refe rence range was not u sed to interpret this result as normal/abnor mal. # Lymphs (test code = 0.73 See_Comment L [Auto mated message] 414) The system [employer] generated this result transmitted ref erence range: 1.18 - 3 .74 K/L. The refe rence range was not u sed to interpret this result as normal/abnor mal. # Monos (test code = 0.62 See_Comment H [Autom ated message] 415) The system [employer] generated this result transmitted ref erence range: 0.24 - 0 .36 K/L. The refe rence range was not u sed to interpret this result as normal/abnor mal. # Eos (test code = 416) 0.24 See_Comment [Au tomated message] The system [employer] generated this result transmitted ref erence range: 0.04 - 0 .36 K/L. The refe rence range was not u sed to interpret this result as normal/abnor mal. # Baso (test code = 417) 0.04 See_Comment [A utomated message] The system [employer] generated this result transmitted ref erence range: 0.01 - 0 .08 K/L. The refe rence range was not u sed to interpret this result as normal/abnor mal. Immature 0 % 0-1 Granulocytes-Relative (test code = 2801) Lab Interpretation (test Abnormal code = 80821-6) [facility] [id number] 15:34:06 Test Item Value Reference Range Interpretation Comments WBC (test code = 6690-2) 4.6 See_Comment [A utomated message] The system [employer] generated this result transmitted ref erence range: 3.5 - 10 .5 K/L. The refe rence range was not u sed to interpret this result as normal/abnor mal. RBC (test code = 789-8) 2.86 See_Comment L [Au tomated message] The system [employer] generated this result transmitted ref erence range: 3.93 - 5 .22 M/L. The refe rence range was not u sed to interpret this result as normal/abnor mal. MCHC (test code = 786-4) 32.1 See_Comment L [A utomated message] The system [employer] generated this result transmitted ref erence range: [...] L [Aut omated message] 777-3) The system [employer] generated this result transmitted ref erence range: 150 - 45 0 K/CU MM. The referen ce range was not u sed to interpret this result as normal/abnor mal. MPV (test code = 11.0 fL 9.4-12.3 84342-3) nRBC (test code = 413) 0 See_Comment [Aut omated message] The system [employer] generated this result transmitted ref erence range: [...] See_Comment [Aut omated message] 670) The system [employer] generated this result transmitted ref erence range: 1.56 - 6 .13 K/L. The refe rence range was not u sed to interpret this result as normal/abnor mal. # Lymphs (test code = 0.73 See_Comment L [Auto mated message] 414) The system [employer] generated this result transmitted ref erence range: 1.18 - 3 .74 K/L. The refe rence range was not u sed to interpret this result as normal/abnor mal. # Monos (test code = 0.62 See_Comment H [Autom ated message] 415) The system [employer] generated this result transmitted ref erence range: 0.24 - 0 .36 K/L. The refe rence range was not u sed to interpret this result as normal/abnor mal. # Eos (test code = 416) 0.24 See_Comment [Au tomated message] The system [employer] generated this result transmitted ref erence range: 0.04 - 0 .36 K/L. The refe rence range was not u sed to interpret this result as normal/abnor mal. # Baso (test code = 417) 0.04 See_Comment [A utomated message] The system [employer] generated this result transmitted ref erence range: 0.01 - 0 .08 K/L. The refe rence range was not u sed to interpret this result as normal/abnor mal. Immature 0 % 0-1 Granulocytes-Relative (test code = 2801) Lab Interpretation (test Abnormal code = 71006-3) [facility] with platelet count + automated [id number] 15:34:06 Test Item Value Reference Range Interpretation Comments WBC (test code = 6690-2) 4.6 See_Comment [A utomated message] The system [employer] generated this result transmitted ref erence range: 3.5 - 10 .5 K/L. The refe rence range was not u sed to interpret this result as normal/abnor mal. RBC (test code = 789-8) 2.86 See_Comment L [Au tomated message] The system [employer] generated this result transmitted ref erence range: 3.93 - 5 .22 M/L. The refe rence range was not u sed to interpret this result as normal/abnor mal. MCHC (test code = 786-4) 32.1 See_Comment L [A utomated message] The system [employer] generated this result transmitted ref erence range: [...] L [Aut omated message] 777-3) The system [employer] generated this result transmitted ref erence range: 150 - 45 0 K/CU MM. The referen ce range was not u sed to interpret this result as normal/abnor mal. MPV (test code = 11.0 fL 9.4-12.3 45325-4) nRBC (test code = 413) 0 See_Comment [Aut omated message] The system [employer] generated this result transmitted ref erence range: [...] See_Comment [Aut omated message] 670) The system [employer] generated this result transmitted ref erence range: 1.56 - 6 .13 K/L. The refe rence range was not u sed to interpret this result as normal/abnor mal. # Lymphs (test code = 0.73 See_Comment L [Auto mated message] 414) The system [employer] generated this result transmitted ref erence range: 1.18 - 3 .74 K/L. The refe rence range was not u sed to interpret this result as normal/abnor mal. # Monos (test code = 0.62 See_Comment H [Autom ated message] 415) The system [employer] generated this result transmitted ref erence range: 0.24 - 0 .36 K/L. The refe rence range was not u sed to interpret this result as normal/abnor mal. # Eos (test code = 416) 0.24 See_Comment [Au tomated message] The system [employer] generated this result transmitted ref erence range: 0.04 - 0 .36 K/L. The refe rence range was not u sed to interpret this result as normal/abnor mal. # Baso (test code = 417) 0.04 See_Comment [A utomated message] The system [employer] generated this result transmitted ref erence range: 0.01 - 0 .08 K/L. The refe rence range was not u sed to interpret this result as normal/abnor mal. Immature 0 % 0-1 Granulocytes-Relative (test code = 2801) Lab Interpretation (test Abnormal code = 42224-5) [facility] with platelet count + automated [id number] 15:34:06 Test Item Value Reference Range Interpretation Comments WBC (test code = 6690-2) 4.6 See_Comment [A utomated message] The system [employer] generated this result transmitted ref erence range: 3.5 - 10 .5 K/L. The refe rence range was not u sed to interpret this result as normal/abnor mal. RBC (test code = 789-8) 2.86 See_Comment L [Au tomated message] The system [employer] generated this result transmitted ref erence range: 3.93 - 5 .22 M/L. The refe rence range was not u sed to interpret this result as normal/abnor mal. MCHC (test code = 786-4) 32.1 See_Comment L [A utomated message] The system [employer] generated this result transmitted ref erence range: [...] L [Aut omated message] 777-3) The system [employer] generated this result transmitted ref erence range: 150 - 45 0 K/CU MM. The referen ce range was not u sed to interpret this result as normal/abnor mal. MPV (test code = 11.0 fL 9.4-12.3 20937-8) nRBC (test code = 413) 0 See_Comment [Aut omated message] The system [employer] generated this result transmitted ref erence range: [...] See_Comment [Aut omated message] 670) The system [employer] generated this result transmitted ref erence range: 1.56 - 6 .13 K/L. The refe rence range was not u sed to interpret this result as normal/abnor mal. # Lymphs (test code = 0.73 See_Comment L [Auto mated message] 414) The system [employer] generated this result transmitted ref erence range: 1.18 - 3 .74 K/L. The refe rence range was not u sed to interpret this result as normal/abnor mal. # Monos (test code = 0.62 See_Comment H [Autom ated message] 415) The system [employer] generated this result transmitted ref erence range: 0.24 - 0 .36 K/L. The refe rence range was not u sed to interpret this result as normal/abnor mal. # Eos (test code = 416) 0.24 See_Comment [Au tomated message] The system [employer] generated this result transmitted ref erence range: 0.04 - 0 .36 K/L. The refe rence range was not u sed to interpret this result as normal/abnor mal. # Baso (test code = 417) 0.04 See_Comment [A utomated message] The system [employer] generated this result transmitted ref erence range: 0.01 - 0 .08 K/L. The refe rence range was not u sed to interpret this result as normal/abnor mal. Immature 0 % 0-1 Granulocytes-Relative (test code = 2801) Lab Interpretation (test Abnormal code = 93748-5) [facility] with platelet count + automated [id number] 15:34:06 Test Item Value Reference Range Interpretation Comments WBC (test code = 6690-2) 4.6 See_Comment [A utomated message] The system [employer] generated this result transmitted ref erence range: 3.5 - 10 .5 K/L. The refe rence range was not u sed to interpret this result as normal/abnor mal. RBC (test code = 789-8) 2.86 See_Comment L [Au tomated message] The system [employer] generated this result transmitted ref erence range: 3.93 - 5 .22 M/L. The refe rence range was not u sed to interpret this result as normal/abnor mal. MCHC (test code = 786-4) 32.1 See_Comment L [A utomated message] The system [employer] generated this result transmitted ref erence range: [...] L [Aut omated message] 777-3) The system [employer] generated this result transmitted ref erence range: 150 - 45 0 K/CU MM. The referen ce range was not u sed to interpret this result as normal/abnor mal. MPV (test code = 11.0 fL 9.4-12.3 60007-6) nRBC (test code = 413) 0 See_Comment [Aut omated message] The system Blaze D[employer] generated this result transmitted ref erence range: [...] See_Comment [Aut omated message] 670) The system [employer]aze D[employer] generated this result transmitted ref erence range: 1.56 - 6 .13 K/L. The refe rence range was not u sed to interpret this result as normal/abnor mal. # Lymphs (test code = 0.73 See_Comment L [Auto mated message] 414) The system Blaze DFM generated this result transmitted ref erence range: 1.18 - 3 .74 K/L. The refe rence range was not u sed to interpret this result as normal/abnor mal. # Monos (test code = 0.62 See_Comment H [Autom ated message] 415) The system Blaze D[employer] generated this result transmitted ref erence range: 0.24 - 0 .36 K/L. The refe rence range was not u sed to interpret this result as normal/abnor mal. # Eos (test code = 416) 0.24 See_Comment [Au tomated message] The system Blaze DFM generated this result transmitted ref erence range: 0.04 - 0 .36 K/L. The refe rence range was not u sed to interpret this result as normal/abnor mal. # Baso (test code = 417) 0.04 See_Comment [A utomated message] The system Blaze DFM generated this result transmitted ref erence range: 0.01 - 0 .08 K/L. The refe rence range was not u sed to interpret this result as normal/abnor mal. Immature 0 % 0-1 Granulocytes-Relative (test code = 2801) Lab Interpretation (test Abnormal code = 80494-2) [facility] with platelet count + automated [id number] 15:34:06 Test Item Value Reference Range Interpretation Comments WBC (test code = 6690-2) 4.6 See_Comment [A utomated message] The system Blaze DFM generated this result transmitted ref erence range: 3.5 - 10 .5 K/L. The refe rence range was not u sed to interpret this result as normal/abnor mal. RBC (test code = 789-8) 2.86 See_Comment L [Au tomated message] The system Blaze D[employer] generated this result transmitted ref erence range: 3.93 - 5 .22 M/L. The refe rence range was not u sed to interpret this result as normal/abnor mal. MCHC (test code = 786-4) 32.1 See_Comment L [A utomated message] The system Blaze D[employer] generated this result transmitted ref erence range: [...] L [Aut omated message] 777-3) The system Blaze DFM generated this result transmitted ref erence range: 150 - 45 0 K/CU MM. The referen ce range was not u sed to interpret this result as normal/abnor mal. MPV (test code = 11.0 fL 9.4-12.3 12687-4) nRBC (test code = 413) 0 See_Comment [Aut omated message] The system Blaze D[employer] generated this result transmitted ref erence range: [...] See_Comment [Aut omated message] 670) The system Blaze D[employer] generated this result transmitted ref erence range: 1.56 - 6 .13 K/L. The refe rence range was not u sed to interpret this result as normal/abnor mal. # Lymphs (test code = 0.73 See_Comment L [Auto mated message] 414) The system Bl[employer] D[employer] generated this result transmitted ref erence range: 1.18 - 3 .74 K/L. The refe rence range was not u sed to interpret this result as normal/abnor mal. # Monos (test code = 0.62 See_Comment H [Autom ated message] 415) The system Blaze D[employer] generated this result transmitted ref erence range: 0.24 - 0 .36 K/L. The refe rence range was not u sed to interpret this result as normal/abnor mal. # Eos (test code = 416) 0.24 See_Comment [Au tomated message] The system Blaze DFM generated this result transmitted ref erence range: 0.04 - 0 .36 K/L. The refe rence range was not u sed to interpret this result as normal/abnor mal. # Baso (test code = 417) 0.04 See_Comment [A utomated message] The system Blaze D[employer] generated this result transmitted ref erence range: 0.01 - 0 .08 K/L. The refe rence range was not u sed to interpret this result as normal/abnor mal. Immature 0 % 0-1 Granulocytes-Relative (test code = 2801) Lab Interpretation (test Abnormal code = 72533-7) [facility] with platelet count + automated [id number] 15:34:06 Test Item Value Reference Range Interpretation Comments WBC (test code = 6690-2) 4.6 See_Comment [A utomated message] The system Blaze D[employer] generated this result transmitted ref erence range: 3.5 - 10 .5 K/L. The refe rence range was not u sed to interpret this result as normal/abnor mal. RBC (test code = 789-8) 2.86 See_Comment L [Au tomated message] The system Blaze D[employer] generated this result transmitted ref erence range: 3.93 - 5 .22 M/L. The refe rence range was not u sed to interpret this result as normal/abnor mal. MCHC (test code = 786-4) 32.1 See_Comment L [A utomated message] The system Blaze DFM generated this result transmitted ref erence range: [...] L [Aut omated message] 777-3) The system Blaze D[employer] generated this result transmitted ref erence range: 150 - 45 0 K/CU MM. The referen ce range was not u sed to interpret this result as normal/abnor mal. MPV (test code = 11.0 fL 9.4-12.3 82004-8) nRBC (test code = 413) 0 See_Comment [Aut omated message] The system Blaze DFM generated this result transmitted ref erence range: [...] See_Comment [Aut omated message] 670) The system Blaze DFM generated this result transmitted ref erence range: 1.56 - 6 .13 K/L. The refe rence range was not u sed to interpret this result as normal/abnor mal. # Lymphs (test code = 0.73 See_Comment L [Auto mated message] 414) The system Blaze DFM generated this result transmitted ref erence range: 1.18 - 3 .74 K/L. The refe rence range was not u sed to interpret this result as normal/abnor mal. # Monos (test code = 0.62 See_Comment H [Autom ated message] 415) The system Blaze DFM generated this result transmitted ref erence range: 0.24 - 0 .36 K/L. The refe rence range was not u sed to interpret this result as normal/abnor mal. # Eos (test code = 416) 0.24 See_Comment [Au tomated message] The system Blaze DFM generated this result transmitted ref erence range: 0.04 - 0 .36 K/L. The refe rence range was not u sed to interpret this result as normal/abnor mal. # Baso (test code = 417) 0.04 See_Comment [A utomated message] The system Blaze DFM generated this result transmitted ref erence range: 0.01 - 0 .08 K/L. The refe rence range was not u sed to interpret this result as normal/abnor mal. Immature 0 % 0-1 Granulocytes-Relative (test code = 2801) Lab Interpretation (test Abnormal code = 69649-9) [facility] W/PLT COUNT & AUTO [id number] 15:34:06 Test Item Value Reference Range Interpretation [...] PERCENT (BEAKER) (test code = 2801) POCT-GLUCOSE [id number] 12:42:57 Test Item Value Reference Range Interpretation Comments POC-GLUCOSE METER 216 mg/dL 70-110 H : TESTED A T [facility] 6720 (BEAKER) (test code = YUDY Modebo [facility], 1538) 41994: Bead Wrapper/Techni kelle ID = [id number] for Kayla Emanuel Prepare Leuko-Red [id number] 10:49:00 Test Item Value Reference Range Interpretation Comments CROSSMATCH (test code = 2264) COMPATIBLE Unit ABO (test code = O Pos 3596927) UNIT NUMBER (test code = [id number] 934-0) Status (test code = 8399655) ISSUED Blood Bank Product (test code RED BLOOD CELLS = 2263) PRODUCT CODE (test code = N4225B91 933-2) [facility] [id number] 10:49:00 Test Item Value Reference Range Interpretation Comments CROSSMATCH (test code = 2264) COMPATIBLE Unit ABO (test code = O Pos 7967681) UNIT NUMBER (test code = [id number] 934-0) Status (test code = 9514004) ISSUED Blood Bank Product (test code RED BLOOD CELLS = 2263) PRODUCT CODE (test code = U5435R41 933-2) [facility] [id number] 10:49:00 Test Item Value Reference Range Interpretation Comments CROSSMATCH (test code = 2264) COMPATIBLE Unit ABO (test code = O Pos 2639709) UNIT NUMBER (test code = [id number] 934-0) Status (test code = 7362058) ISSUED Blood Bank Product (test code RED BLOOD CELLS = 2263) PRODUCT CODE (test code = F5270Q16 933-2) [facility] [id number] 08:43:51 Test Item Value Reference Range Interpretation Comments POC-GLUCOSE METER 209 mg/dL 70-110 H : TESTED A T [facility] 6720 (BEAKER) (test code = YUDY Vaca [facility], 1538) 55338: Bead Wrapper/Techni kelle ID = [id number] for Kayla Emanuel RAD, CHEST, 1 VIEW, NON [id number] 07:26:00Reason for exam:->post-opShould this be performed at the bedside?->Yes [facility] 1955 Sex: [...] MDReport Verified Date/Time: 06/28/2021 07:26:22 BASIC METABOLIC [id number] 04:56:45 Test Item Value Reference Range Interpretation [...] S NOT APPLICABLE FOR DIALYSIS PATIEN TS. Bead Wrapper ID - PIAYA [id number] 04:48:49 Test Item Value Reference Range Interpretation Comments MAGNESIUM (BEAKER) 2.0 mg/dL 1.6-2.6 Specimen slightly (test code = 627) hemolyzed Bead Wrapper ID - PIKEZIA [id number] 04:48:49 Test Item Value Reference Range Interpretation Comments PHOSPHORUS (BEAKER) 2.5 mg/dL 2.3-4.7 Specimen slightly (test code = 604) hemolyzed Bead Wrapper ID - PIAYA LCBC (HEMOGRAM ONLY)2021-06-28 04:28:17 [...] WBC 0-0 (test code = 413) POCT-GLUCOSE [id number] 21:38:17 Test Item Value Reference Range Interpretation Comments POC-GLUCOSE METER 200 mg/dL 70-110 H : TESTED A T [facility] 6720 (BEAKER) (test code = [facility], 1538) 45437: Bead Wrapper/Techni kelle ID = [id number] for RO JOSIE DANIELSO POCT-GLUCOSE [id number] 18:02:45 Test Item Value Reference Range Interpretation Comments POC-GLUCOSE METER 217 mg/dL 70-110 H : TESTED A T [facility] 6720 (BEAKER) (test code = [facility], 1538) 62555: Bead Wrapper/Techni kelle ID = [id number] for Ba rrera, Kayla POCT-GLUCOSE [id number] 15:14:18 Test Item Value Reference Range Interpretation Comments POC-GLUCOSE METER 229 mg/dL 70-110 H : TESTED A T [facility] 6720 (BEAKER) (test code = [facility], 1538) 23297: Bead Wrapper/Techni kelle ID = [id number] for Ba rrera, Kayla POCT-GLUCOSE [id number] 12:20:23 Test Item Value Reference Range Interpretation Comments POC-GLUCOSE METER 160 mg/dL 70-110 H : TESTED A T [facility] 67[address] (BEAKER) (test code = [facility], 1538) 33301: Bead Wrapper/Techni kelle ID = [id number] for Ba rrera, Kayla SARS-CoV2/RT-PCR (Asymptomatic ONLY)2021-06-27 10:39:35 Test Item Value Reference Range Interpretation Comments SARS-COV2/RT-PCR Negative Not Detected, (test code = Negative, See 73419-6) external report for linked test SARS-COV-2 [facility] PERFORMING LAB (test code = 80242-0) BRANDI (test code = Negative result for [...] of the Act. Fact Sheet for Healthcare Providers:https://www.Yorn/sites/default/f radha/product/documents/F act_Sheet_HC_Providers_L gqd_ZOCN-KfN-3.pdf Fact Sheet for Healthcare Patients:https://www.Passman/sites/default/fi les/product/documents/Fa ct_Sheet_Patients_Lyra_S ARS-CoV-2.pdf Performing Laboratory:[facility] [place] [address] [facility]2021-06-27 10:39:35 Test Item Value Reference Range Interpretation Comments SARS-COV2/RT-PCR Negative Not Detected, (test code = Negative, See 09768-5) external report for linked test SARS-COV-2 [facility] PERFORMING LAB (test code = 96629-0) BRANDI (test code = Negative result for [...] of the Act. Fact Sheet for Healthcare Providers:https://www.Colored Solar idel.[employer]/sites/default/f radha/product/documents/F act_Sheet_HC_Providers_L rle_UTVL-SfK-1.pdf Fact Sheet for Healthcare Patients:https://www.ankur del.com/sites/default/fi les/product/documents/Fa ct_Sheet_Patients_Lyra_S ARS-CoV-2.pdf Performing Laboratory:[facility], [place] [address] [place], [place] [address]ARS-CoV2/RT-PCR (Asymptomatic ONLY)2021-06-27 10:39:35 Test Item Value Reference Range Interpretation Comments SARS-COV2/RT-PCR Negative Not Detected, (test code = Negative, See 80752-3) external report for linked test SARS-COV-2 [facility] PERFORMING LAB (test code = 92263-4) BRANDI (test code = Negative result for [...] of the Act. Fact Sheet for Healthcare Providers:https://www.Colored Solar ideSkyn [place].[employer]/sites/default/f radha/product/documents/F act_Sheet_HC_Providers_L mvs_TAZD-JeC-6.pdf Fact Sheet for Healthcare Patients:https://www.9GAG.A[employer]igator [employer]/sites/default/fi les/product/documents/Fa ct_Sheet_Patients_Lyra_S ARS-CoV-2.pdf Performing Laboratory:[place] [id number] [place] [address] [facility] (Asymptomatic ONLY)2021-06-27 10:39:35 Test Item Value Reference Range Interpretation Comments SARS-COV2/RT-PCR Negative Not Detected, (test code = Negative, See 10831-1) external report for linked test SARS-COV-2 [facility] PERFORMING LAB (test code = 62886-4) BRANDI (test code = Negative result for [...] of the Act. Fact Sheet for Healthcare Providers:https://www.Orchid Software.[employer]/sites/default/f radah/product/documents/F act_Sheet_HC_Providers_L kio_VIUN-JmZ-5.pdf Fact Sheet for Healthcare Patients:https://www.9GAG.com/sites/default/fi les/product/documents/Fa ct_Sheet_Patients_Ly_S ARS-CoV-2.pdf Performing Laboratory:[facility] [place] [address] [facility] (Asymptomatic ONLY)2021-06-27 10:39:35 Test Item Value Reference Range Interpretation Comments SARS-COV2/RT-PCR Negative Not Detected, (test code = Negative, See 22612-7) external report for linked test SARS-COV-2 [facility] PERFORMING LAB (test code = 14775-9) BRANDI (test code = Negative result for [...] of the Act. Fact Sheet for Healthcare Providers:https://www.Orchid Software.com/sites/default/f radha/product/documents/F act_Sheet_HC_Providers_L chl_DECQ-ToA-8.pdf Fact Sheet for Healthcare Patients:https://www.9GAG.A[employer]igator Internet/sites/default/fi les/product/documents/Fa ct_Sheet_Patients_Ly_S ARS-CoV-2.pdf Performing Laboratory:[facility] [place] [address] [facility] (Asymptomatic ONLY)2021-06-27 10:39:35 Test Item Value Reference Range Interpretation Comments SARS-COV2/RT-PCR Negative Not Detected, (test code = Negative, See 31541-0) external report for linked test SARS-COV-2 [facility] PERFORMING LAB (test code = 19696-6) BRANDI (test code = Negative result for [...] of the Act. Fact Sheet for Healthcare Providers:https://www.Yorn/sites/default/f radha/product/documents/F act_Sheet_HC_Providers_L qqe_VBER-WrS-7.pdf Fact Sheet for Healthcare Patients:https://www.Passman/sites/default/fi les/product/documents/Fa ct_Sheet_Patients_Lyra_S ARS-CoV-2.pdf Performing Laboratory:[facility] [place] [address] [facility] (Asymptomatic ONLY)2021-06-27 10:39:35 Test Item Value Reference Range Interpretation Comments SARS-COV2/RT-PCR Negative Not Detected, (test code = Negative, See 67226-2) external report for linked test SARS-COV-2 [facility] FILPIE PERFORMING LAB (test code = 30757-0) BRANDI (test code = Negative result for [...] of the Act. Fact Sheet for Healthcare Providers:https://www.Yorn/sites/default/f radha/product/documents/F act_Sheet_HC_Providers_L gcy_VKEW-MyQ-6.pdf Fact Sheet for Healthcare Patients:https://www.Passman/sites/default/fi les/product/documents/Fa ct_Sheet_Patients_Lyra_S ARS-CoV-2.pdf Performing Laboratory:[facility], [place] [address] [place], [place] [address]ARS-COV2/RT-PCR ([facility])2021-06-27 10:39:35 Test Item Value Reference Range Interpretation Comments SARS-COV2/RT-PCR (test Negative Not Detected, Negative, code = 7382616) See external report for linked test SARS-COV-[address] [facility] FIL[facility] (test code = 4321973) Negative result for this test determines that [...] of the Act.Fact Sheet for Healthcare Prov iders:https://www.Liveset/sites/default/files/product/documents/Fact_Sheet_HC _Bvwhzkpce_Pqnc_AKOK-UoQ-8.pdfFact Sheet for Healthcare Patients:https://www.Liveset/sites/default/files/product/docume nts/Oznj_Hmotu_Btioytkq_Afpj_QUHI-PtE-4.pdfPerforming Laboratory:[facility], [place] [address]BUNR-KNWBQYK METER 2021-06-27 08:35:14 Test Item Value Reference Range Interpretation Comments POC-GLUCOSE METER 99 mg/dL 70-110 : TESTED A T [facility] 67[address] (AKASH) (test code = YUDY Vaca [facility], 1538) 19332: Bead Wrapper/Techni kelle ID = [id number] for Kayla Arenas RAD, CHEST, 1 VIEW, NON [id number] 08:17:00Reason for exam:->post-opShould this be performed at the bedside?->Yes [facility] : 1955 Sex: FFINAL REPORT Chest, one view HISTORY: Postoperative Comparison: 06/26/2021 Findings: Lungs: Mild bilateral interstitial opacities, likely pulmonary venous congestion. No significant change. Heart: Unchanged moderate cardiomegaly. Pleura: No pleural effusion or pneumothorax. Bones: Unremarkable. Lines/tubes: Unchanged in position. Signed: Erlin Carr MDReport Verified Date/Time: 06/27/2021 08:17:45 Reading Location: [address] Consult Reading Room BASIC METABOLIC [id number] 05:32:33 Test Item Value Reference Range Interpretation [...] S NOT APPLICABLE FOR DIALYSIS PATIEN TS. Bead Wrapper ID - HIEN [id number] 05:23:42 Test Item Value Reference Range Interpretation Comments PHOSPHORUS (BEAKER) (test code = 2.2 mg/dL 2.3-4.7 L 604) Bead Wrapper ID - HIEN [id number] 05:23:41 Test Item Value Reference Range Interpretation Comments MAGNESIUM (BEAKER) (test code = 1.8 mg/dL 1.6-2.6 627) Bead Wrapper ID - HIEN [id number] 05:19:04 Test Item Value Reference Range Interpretation Comments PTT (test code = 30993-9) 35.8 See_Comment [ Automated message] The system Blaze DFM generated this result transmitted ref erence range: 22.5 - 3 6.0 seconds. The re ference range was not u sed to interpret this result as normal/abnor mal. Lab Interpretation (test Normal code = 34808-7) [place] [id number] 05:19:04 Test Item Value Reference Range Interpretation Comments PTT (test code = 22889-0) 35.8 See_Comment [ Automated message] The system Blaze DFM generated this result transmitted ref erence range: 22.5 - 3 6.0 seconds. The re ference range was not u sed to interpret this result as normal/abnor mal. Lab Interpretation (test Normal code = 53637-3) [place] [id number] 05:19:04 Test Item Value Reference Range Interpretation Comments PTT (test code = 94086-6) 35.8 See_Comment [ Automated message] The system Blaze DFM generated this result transmitted ref erence range: 22.5 - 3 6.0 seconds. The re ference range was not u sed to interpret this result as normal/abnor mal. Lab Interpretation (test Normal code = 18790-1) [place] [id number] 05:19:04 Test Item Value Reference Range Interpretation Comments PTT (test code = 42641-3) 35.8 See_Comment [ Automated message] The system Blaze DFM generated this result transmitted ref erence range: 22.5 - 3 6.0 seconds. The re ference range was not u sed to interpret this result as normal/abnor mal. Lab Interpretation (test Normal code = 36468-9) [facility] Test Item Value Reference Range Interpretation Comments PTT (test code = 00363-7) 35.8 See_Comment [ Automated message] The system Blaze DFM generated this result transmitted ref erence range: 22.5 - 3 6.0 seconds. The re ference range was not u sed to interpret this result as normal/abnor mal. Lab Interpretation (test Normal code = 52687-1) [place] 052472-03-26 05:19:04 Test Item Value Reference Range Interpretation Comments PTT (test code = 91883-3) 35.8 See_Comment [ Automated message] The system Blaze DFM generated this result transmitted ref erence range: 22.5 - 3 6.0 seconds. The re ference range was not u sed to interpret this result as normal/abnor mal. Lab Interpretation (test Normal code = 16530-5) [place] [id number] 05:19:04 Test Item Value Reference Range Interpretation Comments PTT (test code = 52639-9) 35.8 See_Comment [ Automated message] The system Blaze DFM generated this result transmitted ref erence range: 22.5 - 3 6.0 seconds. The re ference range was not u sed to interpret this result as normal/abnor mal. Lab Interpretation (test Normal code = 84815-2) [place] [id number] 05:19:04 Test Item Value Reference Range Interpretation Comments PTT (test code = 36390-0) 35.8 See_Comment [ Automated message] The system Blaze DFM generated this result transmitted ref erence range: 22.5 - 3 6.0 seconds. The re ference range was not u sed to interpret this result as normal/abnor mal. Lab Interpretation (test Normal code = 29059-2) [place] [id number] 05:19:04 Test Item Value Reference Range Interpretation Comments PTT (test code = 13041-1) 35.8 See_Comment [ Automated message] The system Blaze DFM generated this result transmitted ref erence range: 22.5 - 3 6.0 seconds. The re ference range was not u sed to interpret this result as normal/abnor mal. Lab Interpretation (test Normal code = 17656-5) [place] [id number] 05:19:04 Test Item Value Reference Range Interpretation Comments PTT (test code = 31737-8) 35.8 See_Comment [ Automated message] The system Blaze DFM generated this result transmitted ref erence range: 22.5 - 3 6.0 seconds. The re ference range was not u sed to interpret this result as normal/abnor mal. Lab Interpretation (test Normal code = 57750-4) [facility] Test Item Value Reference Range Interpretation Comments PTT (test code = 26266-9) 35.8 See_Comment [ Automated message] The system Blaze DFM generated this result transmitted ref erence range: 22.5 - 3 6.0 seconds. The re ference range was not u sed to interpret this result as normal/abnor mal. Lab Interpretation (test Normal code = 77832-7) [facility] 05:19:04 Test Item Value Reference Range Interpretation Comments PTT (test code = 94050-9) 35.8 See_Comment [ Automated message] The system Blaze DFM generated this result transmitted ref erence range: 22.5 - 3 6.0 seconds. The re ference range was not u sed to interpret this result as normal/abnor mal. Lab Interpretation (test Normal code = 94400-2) [facility] 05:19:04 Test Item Value Reference Range Interpretation Comments PARTIAL THROMBOPLASTIN TIME 35.8 seconds 22.5-36.0 (BEAKER) (test code = 760) Prothrombin time/[id number] 05:18:23 Test Item Value Reference Interpretation Comments Range Protime (test code = 13.9 See_Comment [Autom ated 4552-2) message] The system which generated this result transmitted reference range : 11.9 - 14.2 seconds. The reference range was not used to interpret this result as normal/abnormal . INR (test code = 1.09 See_Comment [Automated 9411-6) message] The system which generated this result [...] valves. Lab Interpretation Normal (test code = 47130-2) [facility]/[id number] 05:18:23 Test Item Value Reference Interpretation Comments [...] valves. Lab Interpretation Normal (test code = 20365-1) [facility]/[id number] 05:18:23 Test Item Value Reference Interpretation Comments [...] valves. Lab Interpretation Normal (test code = 68921-9) [facility]/[id number] 05:18:23 Test Item Value Reference Interpretation Comments [...] valves. Lab Interpretation Normal (test code = 24799-0) [facility]/[id number] 05:18:23 Test Item Value Reference Interpretation Comments Range Protime (test code = 13.9 See_Comment [Autom ated 5902-2) message] The system which generated this result transmitted reference range : 11.9 - 14.2 seconds. The reference range was not used to interpret this result as normal/abnormal . INR (test code = 1.09 See_Comment [Automated [employer]1-6) message] The system which generated this result [...] valves. Lab Interpretation Normal (test code = 84353-3) [facility]/[id number] 05:18:23 Test Item Value Reference Interpretation Comments [...] valves. Lab Interpretation Normal (test code = 36079-2) [facility] HospitalProthrombin time/[id number] 05:18:23 Test Item Value Reference Interpretation Comments [...] valves. Lab Interpretation Normal (test code = 01018-2) [facility]Prothrom[facility] time/[id number] 05:18:23 Test Item Value Reference Interpretation Comments [...] valves. Lab Interpretation Normal (test code = 95196-4) [facility]Prothrombin time/[id number] 05:18:23 Test Item Value Reference Interpretation Comments [...] valves. Lab Interpretation Normal (test code = 01060-0) [facility]Proth[facility] time/[id number] 05:18:23 Test Item Value Reference Interpretation Comments [...] valves. Lab Interpretation Normal (test code = 11583-7) [facility] time/[id number] 05:18:23 Test Item Value Reference Interpretation Comments Range Protime (test code = 13.9 See_Comment [Autom ated 5902-2) message] The system which generated this result transmitted reference range : 11.9 - 14.2 seconds. The reference range was not used to interpret this result as normal/abnormal . INR (test code = 1.09 See_Comment [Automated 0871-6) message] The system which generated this result [...] valves. Lab Interpretation Normal (test code = 63082-8) [facility] time/[id number] 05:18:23 Test Item Value Reference Interpretation Comments Range Protime (test code = 13.9 See_Comment [Autom ated 5902-2) message] The system which generated this result transmitted reference range : 11.9 - 14.2 seconds. The reference range was not used to interpret this result as normal/abnormal . INR (test code = 1.09 See_Comment [Automated 7191-6) message] The system which generated this result [...] valves. Lab Interpretation Normal (test code = 45820-1) [facility] HospitalPROTHROMBIN TIME/[id number] 05:18:23 Test Item Value Reference Range Interpretation Comments PROTIME (BEAKER) 13.9 seconds 11.9-14.2 (test code = 759) INR (BEAKER) (test 1.09 See_Comment [Automat ed message] code = 370) The system [employer] generated this result transmitted ref erence range: [...] WBC 0-0 (test code = 413) POCT-GLUCOSE [id number] 21:11:10 Test Item Value Reference Range Interpretation Comments POC-GLUCOSE METER 158 mg/dL 70-110 H : TESTED A T [facility] 6720 (BEAKER) (test code = YUDY Vaca [facility], 1538) 295[address]: Bead Wrapper/Techni kelle ID = [id number] for Juliet Menjivar POCT-GLUCOSE [id number] 19:06:56 Test Item Value Reference Range Interpretation Comments POC-GLUCOSE METER 113 mg/dL 70-110 H : TESTED A T [facility] 6720 (BEAKER) (test code GISELLA [facility], = 1538) 11628: Bead Wrapper/Techni kelle ID = [id number] for Fadi Nolan Hemoglobin and oqsrmkdrgu0751-09-03 11:43:32 Test Item Value Reference Range Interpretation [...] = 4544-3) BRANDI (test code = BRANDI) Bead Wrapper ID - [id number] Lab Interpretation Abnormal (test code = 74698-5) [facility] HospitalHem[facility] and otumaqzqhe5651-63-28 11:43:32 Test Item Value Reference Range Interpretation [...] = 4544-3) BRANDI (test code = BRANDI) Bead Wrapper ID - [id number] Lab Interpretation Abnormal (test code = 75301-3) [facility] HospitalHemoglobin and ilbyacarxe7639-80-87 11:43:32 Test Item Value Reference Range Interpretation [...] = 4544-3) BRANDI (test code = BRANDI) Bead Wrapper ID - [id number] Lab Interpretation Abnormal (test code = 52997-8) [facility] HospitalH[facility] and jgvtydqapj8006-92-23 11:43:32 Test Item Value Reference Range Interpretation [...] = 4544-3) BRANDI (test code = BRANDI) Bead Wrapper ID - [id number] Lab Interpretation Abnormal (test code = 42387-3) [facility] HospitalH[facility] and zylvornbhi9445-79-49 11:43:32 Test Item Value Reference Range Interpretation [...] = 4544-3) BRANDI (test code = BRANDI) Bead Wrapper ID - [id number] Lab Interpretation Abnormal (test code = 66660-2) [facility] and etvzwvmyoz6571-13-42 11:43:32 Test Item Value Reference Range Interpretation [...] = 4544-3) BRANDI (test code = BRANDI) Bead Wrapper ID - [id number] Lab Interpretation Abnormal (test code = 09951-5) [facility] HospitalH[facility] and crppyzrezk1984-32-00 11:43:32 Test Item Value Reference Range Interpretation [...] = 4544-3) BRANDI (test code = BRANDI) Bead Wrapper ID - [id number] Lab Interpretation Abnormal (test code = 79105-0) [facility] HospitalH[facility] and pajvldbgvp8995-60-53 11:43:32 Test Item Value Reference Range Interpretation [...] = 4544-3) BRANDI (test code = BRANDI) Bead Wrapper ID - [id number] Lab Interpretation Abnormal (test code = 61436-5) [facility] HospitalH[facility] and kopuwqfzfm3942-85-35 11:43:32 Test Item Value Reference Range Interpretation [...] = 4544-3) BRANDI (test code = BRANDI) Bead Wrapper ID - [id number] Lab Interpretation Abnormal (test code = 62251-6) [facility] HospitalH[facility] and xppnjhesnp8939-38-19 11:43:32 Test Item Value Reference Range Interpretation [...] = 4544-3) BRANDI (test code = BRANDI) Bead Wrapper ID - [id number] Lab Interpretation Abnormal (test code = 59546-7) [facility] and midfkgfqxd8277-78-57 11:43:32 Test Item Value Reference Range Interpretation [...] = 4544-3) BRANDI (test code = BRANDI) Bead Wrapper ID - [id number] Lab Interpretation Abnormal (test code = 23981-2) [facility] HospitalH[facility] and dtokjcjkfj1862-49-36 11:43:32 Test Item Value Reference Range Interpretation [...] = 4544-3) BRANDI (test code = BRANDI) Bead Wrapper ID - [id number] Lab Interpretation Abnormal (test code = 73273-2) [facility] HospitalH[facility]oglobin and nyqthbyxso5714-12-90 11:43:32 Test Item Value Reference Range Interpretation [...] = 4544-3) BRANDI (test code = BRANDI) Bead Wrapper ID - [id number] Lab Interpretation Abnormal (test code = 83947-0) [facility] HospitalHEMOGLOBIN AND TLDBBGRSIQ1710-86-84 11:43:32 Test Item Value Reference Range Interpretation Comments HEMOGLOBIN (BEAKER) (test code = 8.5 GM/DL 11.2-15.7 L 410) HEMATOCRIT (BEAKER) (test code = 26.8 % 34.1-44.9 L 411) Bead Wrapper ID - 6000POC-Glucose gnopt0667-47-54 11:26:36 Test Item Value Reference Range Interpretation Comments POC-Glucose Meter (test 126 mg/dL 70-110 H : TE STED AT [facility] code = 1538) [address] [facility], 770 30: Bead Wrapper/Techni kelle ID = [id number] for Ector (contract)Meeta Lab Interpretation (test Abnormal code = 55618-5) [facility] HospitalPOCT-GLUCOSE [id number] 11:26:36 Test Item Value Reference Range Interpretation Comments POC-GLUCOSE METER 126 mg/dL 70-110 H : TESTED A T [facility] 6720 (BEAKER) (test code = YUDY Vaca [facility], 1538) 42363: Bead Wrapper/Techni kelle ID = [id number] for To n (contract)Marilee POCT-GLUCOSE [id number] 09:38:49 Test Item Value Reference Range Interpretation Comments POC-GLUCOSE METER 139 mg/dL 70-110 H : TESTED Cata Eid [facility] 6720 (AKASH) (test code = [place], 1538) [address]39: Bead Wrapper/Techni kelle ID = [id number] for IB SILVERA, SWEETIE ANG, TUNNELED CATHETER LOMZITXBV5467-48-49 08:44:00Reason for Central Line/PICC?->> 21 days of IV infusionReason for exam:->needs antibiotics > 10 days, ESRD, Nephrology does not approve PICC or midline. [facility] 1955 Sex: FFINAL REPORT [...] dose reported as (Ka,r): 6.1mGy Signed: Krzysztof Herediaeport Verified Date/Time: 06/26/2021 08:44:45 Reading Location: [place] [address] Angio Body Reading Room RAD, CHEST, 1 VIEW, NON [id number] 08:08:00Reason for exam:->post-opShould this be performed at the bedside?->Yes [facility] LINDSAY : 1955 Sex: FFINAL REPORT CLINICAL HISTORY: [...] Cain Verified Date/Time: 06/26/2021 08:08:37 [facility] [place] [facility] Prepare Leuko-Red [id number] 06:01:00 Test Item Value Reference Range Interpretation Comments CROSSMATCH (test code = 2264) COMPATIBLE Unit ABO (test code = O Pos 6356305) UNIT NUMBER (test code = [id number] 934-0) Status (test code = 5566778) ISSUED Blood Bank Product (test code RED BLOOD CELLS = 2263) PRODUCT CODE (test code = J3848T83 933-2) [facility] HospitalPrepare Leuko-Red [id number] 06:01:00 Test Item Value Reference Range Interpretation Comments CROSSMATCH (test code = 2264) COMPATIBLE Unit ABO (test code = O Pos 5775517) UNIT NUMBER (test code = [id number] 934-0) Status (test code = 5572938) ISSUED Blood Bank Product (test code RED BLOOD CELLS = 2263) PRODUCT CODE (test code = T8667P16 933-2) [facility] HospitalBasic Metabolic Zdduj1998-52-80 05:17:06 Test Item Value Reference Range Interpretation Comments Sodium (test code = 139 meq/L 588-296 1609-2) Potassium (test code = 3.7 meq/L 3.5-5.1 2823-3) Chloride (test code = 104 meq/L 98-107 2075-0) CO2 (test code = 23 meq/L 22-29 8-9) BUN (test code = 36 mg/dL 7-21 H 3094-0) Creatinine (test code 5.14 mg/dL 0.57-1.25 H = 2160-0) Glucose (test code = 170 mg/dL 70-105 H 2345-7) Calcium (test code = 8.2 mg/dL 8.4-10.2 L 44943-6) EGFR (test code = 8 mL/min/1.73 [place] [address]-2) NOT ACCURATE CREATININE CLEARANCE IN PREDICTING GLOMERULAR FILTRATION RATE . ESTIMATED GFR I S NOT APPLICABLE FOR DIALYSIS PATIENTS. BRANDI (test code = BRANDI) Bead Wrapper ID - RAKAN W Lab Interpretation Abnormal (test code = 17003-0) [facility] Metabolic [id number] 05:17:06 Test Item Value Reference Range Interpretation Comments Sodium (test code = 139 meq/L 064-150 5417-2) Potassium (test code = 3.7 meq/L 3.5-5.1 2823-3) Chloride (test code = 104 meq/L 98-107 2075-0) CO2 (test code = 23 meq/L 22-29 2028-9) BUN (test code = 36 mg/dL 7-21 H 3094-0) Creatinine (test code 5.14 mg/dL 0.57-1.25 H = 2160-0) Glucose (test code = 170 mg/dL 70-105 H 2345-7) Calcium (test code = 8.2 mg/dL 8.4-10.2 L 10585-8) EGFR (test code = 8 mL/min/1.[place] [address]-6) NOT ACCURATE CREATININE CLEARANCE IN PREDICTING GLOMERULAR FILTRATION RATE . ESTIMATED GFR I S NOT APPLICABLE FOR DIALYSIS PATIENTS. BRANDI (test code = BRANDI) Bead Wrapper ID - RAKAN W Lab Interpretation Abnormal (test code = 92655-1) [facility] METABOLIC [id number] 05:17:06 Test Item Value Reference Range Interpretation [...] S NOT APPLICABLE FOR DIALYSIS PATIEN TS. Bead Wrapper ID - RAKAN JSauaenvplt8213-14-52 05:00:22 Test Item Value Reference Range Interpretation Comments Phosphorus (test code = 3.7 mg/dL 2.3-4.7 2777-1) BRANDI (test code = BRANDI) Bead Wrapper ID - RAKAN W Lab Interpretation (test Normal code = 87748-7) [facility] HospitalPhosphorus2022-03-25 05:00:22 Test Item Value Reference Range Interpretation Comments Phosphorus (test code = 3.7 mg/dL 2.3-4.7 2777-1) BRANDI (test code = BRANDI) Bead Wrapper ID - RAKAN W Lab Interpretation (test Normal code = 51093-4) [facility] HospitalPHOSPHORUS2022-03-25 05:00:22 Test Item Value Reference Range Interpretation Comments PHOSPHORUS (BEAKER) (test code = 3.7 mg/dL 2.3-4.7 604) Bead Wrapper ID - RAKAN PIkbnddgtv6872-92-55 05:00:21 Test Item Value Reference Range Interpretation Comments Magnesium (test code = 2.2 mg/dL 1.6-2.6 97115-4) BRANDI (test code = BRANDI) Bead Wrapper ID - RAKAN W Lab Interpretation (test Normal code = 92175-4) [facility] HospitalMagnesium2022-03-25 05:00:21 Test Item Value Reference Range Interpretation Comments Magnesium (test code = 2.2 mg/dL 1.6-2.6 24973-9) BRANDI (test code = BRANDI) Bead Wrapper ID - RAKAN W Lab Interpretation (test Normal code = 37590-2) [facility]21 Test Item Value Reference Range Interpretation Comments MAGNESIUM (BEAKER) (test code = 2.2 mg/dL 1.6-2.6 627) Bead Wrapper ID Bassam BLEDSOE BoMYJ9874-35-84 04:21:04 Test Item Value Reference Range Interpretation Comments PTT (test code = 41874-1) 35.7 See_Comment [ Automated message] The system [employer] generated this result transmitted ref erence range: 22.5 - 3 6.0 seconds. The re ference range was not u sed to interpret this result as normal/abnor mal. Lab Interpretation (test Normal code = 90361-1) [facility] HospitalaPTT2022-03-25 04:21:04 Test Item Value Reference Range Interpretation Comments PTT (test code = 52848-8) 35.7 See_Comment [ Automated message] The system [employer] generated this result transmitted ref erence range: 22.5 - 3 6.0 seconds. The re ference range was not u sed to interpret this result as normal/abnor mal. Lab Interpretation (test Normal code = 52748-4) [facility] HospitalAPTT2022-03-25 04:21:04 Test Item Value Reference Range Interpretation Comments PARTIAL THROMBOPLASTIN TIME 35.7 seconds 22.5-36.0 (BEAKER) (test code = 760) Prothrombin time/[id number] 04:20:24 Test Item Value Reference Interpretation Comments [...] valves. Lab Interpretation Normal (test code = 67112-4) [facility] HospitalProthrombin time/[id number] 04:20:24 Test Item Value Reference Interpretation Comments [...] valves. Lab Interpretation Normal (test code = 33871-6) [facility] HospitalPROTHROMBIN TIME/[id number] 04:20:24 Test Item Value Reference Range Interpretation Comments PROTIME (BEAKER) 14.0 seconds 11.9-14.2 (test code = 759) INR (BEAKER) (test 1.10 See_Comment [Automat ed message] code = 370) The system [employer] generated this result transmitted ref erence range: [...] 4.0 See_Comment [A utomated message] The system [employer] generated this result transmitted ref erence range: 3.5 - 10 .5 K/L. The refe rence range was not u sed to interpret this result as normal/abnor mal. RBC (test code = 789-8) 2.54 See_Comment L [Au tomated message] The system [employer] generated this result transmitted ref erence range: 3.93 - 5 .22 M/L. The refe rence range was not u sed to interpret this result as normal/abnor mal. MCHC (test code = 786-4) 31.2 See_Comment L [A utomated message] The system [employer] generated this result transmitted ref erence range: [...] L [Aut omated message] 777-3) The system [employer] generated this result transmitted ref erence range: 150 - 45 0 K/CU MM. The referen ce range was not u sed to interpret this result as normal/abnor mal. MPV (test code = 10.7 fL 9.4-12.3 24615-2) nRBC (test code = 413) 0 See_Comment [Aut omated message] The system [employer] generated this result transmitted ref erence range: 0 - 0 /1 00 WBC. The refere nce range was not u sed to interpret this result as normal/abnor mal. Lab Interpretation (test Abnormal code = 70561-9) [facility] (Hemogram only)2021-06-26 04:04:58 Test Item Value Reference Range Interpretation Comments WBC (test code = 6690-2) 4.0 See_Comment [A utomated message] The system [employer] generated this result transmitted ref erence range: 3.5 - 10 .5 K/L. The refe rence range was not u sed to interpret this result as normal/abnor mal. RBC (test code = 789-8) 2.54 See_Comment L [Au tomated message] The system [employer] generated this result transmitted ref erence range: 3.93 - 5 .22 M/L. The refe rence range was not u sed to interpret this result as normal/abnor mal. MCHC (test code = 786-4) 31.2 See_Comment L [A utomated message] The system [employer] generated this result transmitted ref erence range: [...] L [Aut omated message] 777-3) The system [employer] generated this result transmitted ref erence range: 150 - 45 0 K/CU MM. The referen ce range was not u sed to interpret this result as normal/abnor mal. MPV (test code = 10.7 fL 9.4-12.3 87646-2) nRBC (test code = 413) 0 See_Comment [Aut omated message] The system [employer] generated this result transmitted ref erence range: 0 - 0 /1 00 WBC. The refere nce range was not u sed to interpret this result as normal/abnor mal. Lab Interpretation (test Abnormal code = 02443-8) [facility] (HEMOGRAM ONLY)2021-06-26 04:04:58 Test Item Value [...] WBC 0-0 (test code = 413) POC-Glucose anllr4030-35-81 21:57:30 Test Item Value Reference Range Interpretation Comments POC-Glucose Meter (test 204 mg/dL 70-110 H : TE STED AT [facility] code = 1538) [address] [facility], 770 30: Bead Wrapper/Techni kelle ID = [id number] for Rodríguez Cancino Lab Interpretation (test Abnormal code = 52834-5) [facility] HospitalPOCT-GLUCOSE [id number] 21:57:30 Test Item Value Reference Range Interpretation Comments POC-GLUCOSE METER 204 mg/dL 70-110 H : TESTED A T [facility] 6720 (AKER) (test code = [facility], 1538) [address]: Bead Wrapper/Techni kelle ID = [id number] for Ad alana, Kimetra Type and screen, automated ([facility] Lab)2021-06-25 19:44:00 Test Item Value Reference Range Interpretation Comments ABO/RH AUTOMATED (BEAKER) (test O POSITIVE code = 2260) Ab Scrn (test code = 890-4) NEGATIVE [facility] HospitalType and screen, automated ([facility] Lab)2021-06-25 19:44:00 Test Item Value Reference Range Interpretation Comments ABO/RH AUTOMATED (BEAKER) (test O POSITIVE code = 2260) Ab Scrn (test code = 890-4) NEGATIVE [facility] HospitalType and screen, automated ([facility] Lab)2021-06-25 19:44:00 Test Item Value Reference Range Interpretation Comments ABO/RH AUTOMATED (BEAKER) (test O POSITIVE code = 2260) Ab Scrn (test code = 890-4) NEGATIVE [facility] HospitalType and screen, automated ([facility] Lab)2021-06-25 19:44:00 Test Item Value Reference Range Interpretation Comments ABO/RH AUTOMATED (BEAKER) (test O POSITIVE code = 2260) Ab Scrn (test code = 890-4) NEGATIVE [facility] HospitalType and screen, automated ([facility] Lab)2021-06-25 19:44:00 Test Item Value Reference Range Interpretation Comments ABO/RH AUTOMATED (BEAKER) (test O POSITIVE code = 2260) Ab Scrn (test code = 890-4) NEGATIVE [facility] HospitalType and screen, automated ([facility] Lab)2021-06-25 19:44:00 Test Item Value Reference Range Interpretation Comments ABO/RH AUTOMATED (BEAKER) (test O POSITIVE code = 2260) Ab Scrn (test code = 890-4) NEGATIVE [facility] HospitalType and screen, automated ([facility] Lab)2021-06-25 19:44:00 Test Item Value Reference Range Interpretation Comments ABO/RH AUTOMATED (BEAKER) (test O POSITIVE code = 2260) Ab Scrn (test code = 890-4) NEGATIVE [facility] HospitalType and screen, automated ([facility] Lab)2021-06-25 19:44:00 Test Item Value Reference Range Interpretation Comments ABO/RH AUTOMATED (BEAKER) (test O POSITIVE code = 2260) Ab Scrn (test code = 890-4) NEGATIVE [facility] HospitalType and screen, automated ([facility] Lab)2021-06-25 19:44:00 Test Item Value Reference Range Interpretation Comments ABO/RH AUTOMATED (BEAKER) (test O POSITIVE code = 2260) Ab Scrn (test code = 890-4) NEGATIVE [facility] HospitalType and screen, automated ([facility] Lab)2021-06-25 19:44:00 Test Item Value Reference Range Interpretation Comments ABO/RH AUTOMATED (BEAKER) (test O POSITIVE code = 2260) Ab Scrn (test code = 890-4) NEGATIVE [facility] HospitalType and screen, automated ([facility] Lab)2021-06-25 19:44:00 Test Item Value Reference Range Interpretation Comments ABO/RH AUTOMATED (BEAKER) (test O POSITIVE code = 2260) Ab Scrn (test code = 890-4) NEGATIVE [facility] HospitalType and screen, automated ([facility] Lab)2021-06-25 19:44:00 Test Item Value Reference Range Interpretation Comments ABO/RH AUTOMATED (BEAKER) (test O POSITIVE code = 2260) Ab Scrn (test code = 890-4) NEGATIVE [facility] HospitalType and screen, automated [facility]2021-06-25 19:44:00 Test Item Value Reference Range Interpretation Comments ABO/RH AUTOMATED (BEAKER) (test O POSITIVE code = 2260) Ab Scrn (test code = 890-4) NEGATIVE [facility] HospitalType and screen, automated ([facility] Lab)2021-06-25 19:44:00 Test Item Value Reference Range Interpretation Comments ABO/RH AUTOMATED (BEAKER) (test O POSITIVE code = 2260) Ab Scrn (test code = 890-4) NEGATIVE [facility] HospitalPOCT-GLUCOSE FSKKU6086-04-03 11:31:12 Test Item Value Reference Range Interpretation Comments POC-GLUCOSE METER 130 mg/dL 70-110 H : TESTED A T [facility] 6720 (BEAKER) (test code = [place], 1538) [address]: Bead Wrapper/Techni kelle ID = [id number] for PH TONY-[place] (V), INES RAD, CHEST, 1 VIEW, NON [id number] 09:04:00Reason for exam:->post-opShould this be performed at the bedside?->Yes [facility] : 1955 Sex: FFINAL REPORT Chest AP portable Comparison exam: 06/24/2021 History provided: Postopevaluation Heart size magnified by projection. Lungs grossly free of acute disease and vascularity normal. Signed: Wero Alvarez Verified Date/Time: 06/25/2021 09:04:07 Reading Location: [facility] Diagnostic Imaging Reading Room - [place] [address] BASIC METABOLIC [id number] 03:58:40 Test Item Value Reference Range Interpretation [...] S NOT APPLICABLE FOR DIALYSIS PATIEN TS. Bead Wrapper ID - OAXMUE4080-65-04 03:40:57 Test Item Value Reference Range Interpretation Comments PARTIAL THROMBOPLASTIN TIME 46.7 seconds 22.5-36.0 H (BEAKER) (test code = 760) PROTHROMBIN TIME/[id number] 03:39:54 Test Item Value Reference Range Interpretation Comments PROTIME (BEAKER) 13.6 seconds 11.9-14.2 (test code = 759) INR (BEAKER) (test 1.05 See_Comment [Automat ed message] code = 370) The system [employer] generated this result transmitted ref erence range: <=5.90. The reference range was not used to int erpret this result as normal/abnormal . RECOMMENDED COUMADIN/WARFARIN INR THERAPY RANGESSTANDARD DOSE: 2.0 - 3.0 Includes: PROPHYLAXIS for venous thrombosis, systemic embolization; TREATMENT for venous thrombosis and/or pulmonary embolus.HIGH RISK: Target INR is 2.5-3.5 for patients with mechanical heart valves.ETFCICCANP5252-73-91 03:34:10 Test Item Value Reference Range Interpretation Comments PHOSPHORUS (BEAKER) (test code = 3.8 mg/dL 2.3-4.7 604) Bead Wrapper ID - DBBIPIVSJSL5378-07-69 03:34:09 Test Item Value Reference Range Interpretation Comments MAGNESIUM (BEAKER) (test code = 2.3 mg/dL 1.6-2.6 627) Bead Wrapper ID - BSCBC (HEMOGRAM ONLY)2021-06-25 03:11:29 Test [...] WBC 0-0 (test code = 413) POCT-GLUCOSE [id number] 22:14:10 Test Item Value Reference Range Interpretation Comments POC-GLUCOSE METER 185 mg/dL 70-110 H : TESTED A T [facility] 6720 (AKSAH) (test code = [place], 1538) [address]: Bead Wrapper/Techni kelle ID = [id number] for Sheryl Bergeron, ABDOMEN/KUB, 1 VIEW [id number] 19:49:00Reason for exam:->concern for ileusShould this be performed at the bedside?->Yes [facility] : 1955 Sex: FFINAL REPORT Abdomen dated 06/24/2021 Comment:Abdomen was examined in the supine and erect position. There is paucity of air in the small and large bowel. No mass, pathological calcification, or free air is present. Impression: Nonspecific gas pattern. Signed: Andrew Palmer [facility] Verified Date/Time: 06/24/2021 19:49:12 CT, CTA CORONARY, W/ YOEL [id number] 16:36:00 [facility] : 1955 Sex: FAddendum BeginsREPORT STATUS:A Impression: Mildly nodular appearance of the liver margins. Please correlate with underlying liver function tests to exclude chronic liver disease. No abnormally enhancing lesions in the liver parenchyma.Low-density lesion in the right lobe of the thyroid gland. 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 Signed: Lise Andrade MDReport Verified Date/Time: 06/24/2021 16:36:13 Reading Location: [address] [facility] Reading RoomAddendum EndsFINAL REPORT CT [...] (< 1mm) were obtained. Please refer to [facility] regarding the medication administered for [...] erformed. Coronary calcification was analyzed using the [employer] system software. These are the results of [...] arteries have normal origins. The left main coronaryartery arises from the left sinus of Valsalva and give rise to the left anterior descending of the left circumflex arteries in the normal fashion. The right coronary artery arises from the right sinus of Valsalva. Eccentric nonobstructive calcification is identified in the left main coronary artery. The proximal mid LAD has severe calcification identified. Patient is post coronary bypass surgery. Theleft internal mammary artery is patent, and in the available images, appears to connect to the LAD territory. It is patent. A bypass graft is identified, connecting to the LCx territory and this bypassgraft is widely patent. Tiny distal runoff is identified in the OM branch. A bypass graft is identified, connecting to the distal RCA and is widely patent. Distal runoff to the RCA is identified. Regarding the [place] coronary arteries, diffuse calcification identified the proximal LCx making accurate a ssessment limited. 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 NON-VASCULAR: A 1.2 cm hypodensity is identified in the right thyroid lobe at image 7. An addendum will be dictated thereafter by [employer] Radiologist if dedicated thyroid ultrasound scan is required. The chest wall and mediastinum appears unremarkable. Patient is post median sternotomy. No significant adenopathy is identified in the mediastinum. In the lung windows, no endobronchial lesion is seen. Moderate right pleural effusionis identified with associated atelectatic changes present. Trivial pericardial effusion identified in the left base. The pulmonary vascular appears to be somewhat prominent suggesting a degree of cardiac congestion. Correlate with clinical examination. A juxtapleural nodule is identified, at image 24,measures 6 to 7 mm in diameter. Limited [...] 7 mm juxtapleural nodule identified in the rightlung. 2017 Fleischner Society Recommendations for Multiple Solid Lung Nodules Follow-Up base on size(average of long- and short-axis diameters). Use most [...] An addendum will be dictated by the [employer] Radiologist regardingthe nonvascular findings. THE REPORT WILL ONLY BE CONSIDERED COMPLETE AFTER THE ADDENDUM HAS BEEN DICTATED. Signed: Dung Fletcher Verified Date/Time: 06/23/2021 08:29:48 POCT-GLUCOSE [id number] 16:19:22 Test Item Value Reference Range Interpretation Comments POC-GLUCOSE METER 108 mg/dL 70-110 : TESTED A T [facility] 6720 (BEAKER) (test code = YUDY Vaca [facility], 1538) [address]: Bead Wrapper/Techni kelle ID = [id number] for Aditya brewer (contract), [facility] Tissue [id number] 15:29:08 Test Item Value Reference Range Interpretation Comments Case Report (test code Surgical Pathology = 104) Report Case: [id number] Authorizing Provider: Logan Russo MD Collected: 06/18/2021 11:41 AM Ordering Location: [facility] Received: 06/19/2021 03:44 PM PERIOPERATIVE SERVICES Pathologist: Tom Paige MD Specimen: Mass, MITRAL VALVE MASS- for MICROBIOLOGY then pls send to Pathology DIAGNOSIS (test code = [id number] 3220) uZzEwMzNcZnRuYmpcdWMxIH tccnRmMVxlcGljOTYwMVxhb lYqMPDazTFvW9LcytwpTSzd CI8lMD2joTeffBYkoOGeSCW qFuSod1cdf033sMRms3soZQ XWnkgqnWf5mJmcI76kw2Y6O jcnN35kaXEkQUF6WRYqURMy sJPzPRCaING2OPOuoXZuD2o rEEDwWH5ucxlfYQvzXUfeDF JgeKK1VVVlvOIzZ1WxWHLxS ArcNIHxcre0JmRmJx5uhNQs eTcyMFxwYXJkXHBsYWluXGZ lAdYzRI9vMIXJUfPkAF0YXJ JBTCBWQUxWRSwgREVCUklER N2CGmTnMP9CVWPBSAFZUlqa cGFyIEZJQlJJTiwgQUNVVEU pJQ7KQEWSAFGQB7WUZEOLN3 JNI6QIZYMATxYhR0GEE6zZS XGADQsYGx8heLSjUUDCQDRA CCroK1JMQE2ZJDBFMlXNCvK TP9DQX9SAMF8UF2NQFWMVHu QHCN6KUL3YMJCVQYHNWbNIC OISHwBXV8iAR9xfRPiiPUOk M11JPsVEZNVJA91yS2hCTBX RSQFIS8AKI9zXY1mKZXxaN3 RCWBpJYpGKArOLEWHPLR6NM xCBNC5xEKByjp20FVN6HuZs x1R9FSA6HFEaTEXic4afAMX mbGFuZzEwMzNcZnRuYmpcdW JkGEBlEcGkl2zfj762iPAtw 9tnKMTmWjY9pFHeOHNmqVVe E857KGDuHSwxs4dhn2EsYWE poKGjx1A1BMKYdnnziFw0gT niE61nj6D6ZswyK7hbIGKhY TMrK1WeJQ9gYZCfQux5WXK9 UAA0OHIkQCVqR6LhLJ9hDEG keSOrYIs8j3ggvWwiUCNeIV X6e8wcQXlqvoKmCO8zyk4pu Qg4d2nwjxHeVNBoIOEsiSCT ILZgR3MhsVqrWd5ylZs5pYk oCybkRGP1Vhe9NZ2rkt43jq u8zQruVZTepnymYaO6KKogE ISnrzhtRZk8UAjzAHOmwFU0 WBTvrTSeU7ReZZMxGC9eefu 2FYJ4MDvnEDOyPoT9BAQbtZ XsQWGelMkdFAoyr411QHB6Z nDkQP3bU6Iyr7A3vA2ghSFi CCWilERhBlAkLWFxqr0vzPT zGGcle1QvHJJ1sxC7vCDuyD ZmMMDpXaJ5QOxdZS0ike95Q MQaAGS4ka4qgDDdlBzolqMm tZDuRZsnF5NyNNXsn324ICO fD7FpZWBpn0A5knAmJwQfHK WmwXW3tsE2TFZfQY6poiaxy 3keLAniQMyxYOCwhnA3rhH8 XJIbwFSoS9KngH6qKKXcFD8 wokjke9hpRZU6RXrfHAXgZD T8JzFqEXLro4Xaium5BgZta 9UwlSQsHVuvX65ov046XCDb ovUqJ3genCGdwlthzFCqpla aFXhnjsQ4UJDqQXdjalbbFG EwIFpyR6dgBpOkZLFcoMtyY Ewmr8MhTMJxAGWcTlXnpDQs BWOxVcq9MSLlbWBfQTMdMfF jJ3anxgahVdYDCPAll1ueU2 oygHHYxAHmF0TfVIihowHkF ApdMEvpOdMbKNRwNJ85JHX6 CGWkhy43 CPT Code(s) (test code i0pmdUErEXRkpKP3EeVuXCC = 3357) gk2gwx7EksDZpyTHcICnkhT HdkzVkex06gSP6rN02ND2wL ZPdIaC0AKGcmcV1Rdx4PESs GAIuvOXzN255r1bcg4eexaT qiOK8hBbxSHZbvlymHgZ7KP arZXKwuhxpRHm6NTowJVZgp IO6OWBeqKOpR3VhMWFxSP8w czm9FTJ2RTkeGDHjAlA1YIL pdVDbWMJsoKjtGIjos181IZ Q9IgGxXCBdyuKrcWzxtO1qI hCjXXB6UQQsYOjwHLjgONQK X6sqFTR1 CLINICAL HISTORY (test m0mrbSPcIXImzAM9PoBoFBF code = 3356) ih4iiu2AikWItdSWhSRusmN DqcqSkuj71dTQ9nM35AE1hT MJkElS2TYHoebT6Gaa6ISTk XRSuvXYjG843z5ijc7wftaS xaHB5zWgwSMVjrhbpEoJ8OD sxLSYplwhiCMp4ANgoSOEah XE4VRBdaDJlN4JyMSTtUK0b fpf7ZQZ3XNwpWBFeOoG4EKL ksESxACJbuRyfWYgwd878RE J9HxWiNIIbrwLzmFfeuT4kA lYbVMPWluArJ3NsDTm8sSUx cGFyfQ== SPECIMEN SOURCE (test n3mzxTDeNCUwxSQ7OuFjMAY code = 3377) ho9qeb0NgoOJoqIYkTRqyhE YvqvXatv48rEL4yR87RI6gF DOaBpC1CHGbfvB7Vfv0NETg QEKgrMMoT207o9zdp8qwszU ezTO1eNqqROShaohyInQ3FS dhXPKoefkuLHg6AFrgEPHbs RL2TFNdvLTnL2XnCSTiYS4r nna2AZQ7MLzgUSQjRbA2KGM jbCXhMIGtuNvzRAzye674AC B1PvDaRAQxxvMoeWsgxZ0tW nMyMCBNaXRyYWwgdmFsdmVc cGFyfQ== GROSS DESCRIPTION n0gtfFFxFYLrfXGcOzEtPTN (test code = 3366) eDFHwg7wpIIPxvWTfMiLjWf NcZnRuYmpcdWMxXGRlZmYwe 0sfo906bDBzb2hyGYTaPpW1 bEEcPMJuxIOxT205KEZuOQm hb4byp1QgJFNvkYVqq1L4EI GUaimnzPc7gLfhC48ym6I0U dktU1ttNHLjXJIaM0QzFL5y BUQgWsy8MTA8AGI3ZTYnOCE rM7HfUP1dWVPrrEMaVAv2v8 wetAsfLPKsEUE2o3osOBnot dLyQG9xns9dmUh6x7gxakPy EYBdECXvhPRVZZGpZ8ForRo kVe2khEt9aPvlThcmAER8Cn z5HQ0jat46rvs1cSucOVMzc gvrZgL5RJvrCCAqxppcDAd7 MFxtYXJnbDcyMFxtYXJncjc yMFxtYXJndDcyMFxtYXJnYj uaCWegHILjUWQ6PTsau236S PT0IEses9zol7falIRjQof3 BRGnCrLiQdayPVyei8Cyl4g tRCPlxd4kAWW2uKPktNqyv7 B9rQAaMVKoaXCrovPcSIPfZ vR0RBmcKR2vjp91GDWlFGA7 aa7ggKHwbPlgmcFqhGZeGQk tT0UpJAKlx515GLXiS7GqUF Dbi0R3weZoEnOfYHGmiFA8a kM2IMCgSRf5kSKqvvU8thNe hLJzR4rtrS00SsQjsYNrK5O epY38RbOmrEHcX0MalZ31Xp YdwDIeL1WvtI00HfAogCVeR HTncYAeUk0ssZWepXNlz7Eo mAOlPZkbG25ir608VMXlflF jK8mteAYmfnglfFHexymqIF xuamT7NPFkTOYiJDycYFRuR GZzMjBcbGFuZzEwMzNcaGlj kUgrMMeeNqGxSNGlKHsiC3f cZjBcZnMyMCBBLiAgUmVjZW j3NEJbtV4dPc0mnEBxbY7dt XYtCRplRYK2wBTeQSEiFASp HWPoJH59S7QvrB5wq3NyRMW tp94tUA6fPRGhlBTcCLxhlk FsdmUgbWFzcyIgaXMgYSAxL pAfT51arD0yjHUqM0JqVOC0 IDAuMyBjbSBpbiBkaWFtZXR yhzR1VU4seKsxzoQ2zMRowJ IjFZmleGUqSIihECZ6Yq2uv JVkPYHpurJ8j1AtDIqpWNMj r9VoaSGqJLTzTemlPCBjwDM pZMFlwxButPoxnS1aXdYpTz MyNFxwbGFpblxmMVxmczIwX XzlhektBKKhDJvoA8zbUeEn DCQugDamUQuep6LsAYQvYWL eGhLyGGKcPPRuq1ikGT73AR xwbGFpblxmMFxmczIwXGxhb xswYVTvSEemX8vgVpNoQJFa sFscREjdg2UjVEOrEHRcEiI ccGFyfQ== MICROSCOPIC q0eooJHfOLVjjRJ6QvNzLEI DESCRIPTION (test code fh3ppr0SpsUGpcETmGQzbdV = 3371) YapdJern68oBW7lE90NX9dK KKuPcN8LLZcsyP8Owq2FDXq HJMmgEQqF390r2zqe7kkiaI mhNM7dBsaXIOzsbnjSkQ5PA qkHGIlqsytFOl2WHreSMTdi VH3VUMgpJKwP8MzUDLhMW5g yws4XMZ6FIufTWAsKwO0YPH nhKErPCWpxTmpDMpoo766CB F0NuZuNHVusdJpaAdorW7yD nWyBLLMDGZes0WrGLObKWMo cn0= SPECIAL STUDIES (test j3pvzSGwOEItfLK3GiLbAEB code = 337) qr1nzw4JhiHBjvNXwJWtafQ VjteVjqd80pZF4uT96AW9sS CBvGbB4GIYznaD8Abe3RRCe WEBhjTZzH656ALSxPXGinAi fzyh4kK75QTVjmA5fyXRdBW ngcuNuDDfztcItusAzLjj8Z GE9jJtsTTWqrmexCtM3XHuv QJSjxijvEWt0PGggCSVolEB 2EVUgoETeD7OuZTKkFF3vjj y4XLL5NTegSIGiCfB4ZYZjy ARjLIFngFttYTrhx824CLD8 WdOaBHPbumPsxBarbB2qNtD cZnMyMlxjZjEgVGhlIGludG CilNTzjFK1hF5pRP9oFAAue RCfC2TiQHUjboCcmRMrHRI5 tSCckFBaOJ4lWJzrmTPik0x dw7VaH3mcuEzufPN1UC4kWP QdGYTfOCsrn0HeqL4qEkcyJ MSkO0PjNCZNC4GKSWNpYOUN Qa8QJnKOYrCkTqEGUz0lEIo NUywgQUZCXHBhclxwYXJkXG LhPKXEe424lu3lLNAskPFnn uBFtWCooR1rYBmjHHnuWJyc yMRsHJqqr3huIWXzm4j0kNW iYYEfdcPlx5phLYogadIdPW GeiCTkmYSwIUTsa18vVAclu EebgDmcKRSaf9PdkNmmh9Lq SqXdYVvip9DcG26ebVXflNJ qiCzaFARsqyDmCLKoe50xc1 krXCIsPiV8xEXdqZT5pSJsr DQfr4JkyRlvFQCmt2ibOQAh yf2rvhobbZSum9FitO3tttp wOJprmVStwkSrMRGln4q5eY NfALCdFLQqYLvagVb5YSHiq 866zf2cyvA7tJKbQEH0AEdp YWJsZSBhcmUgZXZhbHVhdGV uVSSvamDvTHQqreKRuT90lb 0fbWA7k7LgPM7zk3QhxRK8X WNobmljYWwgdGVzdGluZyB3 EAYkcUGdVk9dqPUdMHM9AFR ueJrlgcNCaK8cDGRoLWl6YC SnJtOwPlhbogWPVRSrQ1NaV LIaheNtyuofPJK9yN0ro0m8 CGicLn2dKMKhkfcty3mnubP ifAMpy0YqLBWpilRev8VaIH JizkCbaJNgASJduvOabu8qx tXhVFMcPHKzV2AuyuaupDfq goZ6ODVyLEFnxEGfcNhgPXU bKRm0DTkmefSii0TnHrOtjp TukYGkbaTjQP1dADDwiNPmd yDdZXM9VQSkVRRFDkUcXBJm r4WlUH7cLZIqzGgnNAInbN9 rm5HyNVJrr23oZMCyFTTGXL EgaGFzIGRldGVybWluZWQgd PdbhTAmaDPpREMnWMBaAR8c TGUcanDgfUZks1QulSQpraH gg2KuehSzMMJvVLV6XuNOfG DfmCVrvLPuapE7w7JcZBLvf yLcoSmliCBlnQKmvXSte6Wi ou3pKREtx1rokThbQU5spKA iZSByZWdhcmRlZCBhcyBpbn Dda5XhH1H2bV0qKErcs2SaJ z6wATYfo9DskjPaVtFFmJiw JCpyJb3fDYDixyqgvTPuE7N ydGlmaWVkIHVuZGVyIHRoZS USuPyznZQzcRINXYSebhP8d 2T1MMpakCWnafUnLK38XEJh AU3cvKKbxIGvb7AmCGx9RUW zC6vNHX98OGmeDXDjuKTxbE kntIQiCRTeGWIeogNuwr7mx QadoAZmn75wvVX7oLK8JGSa gJ8zW8IjQVscGp8qRQWwagc vtLPlgGpjRl4tpNBalY== Gross assessment was [facility] performed at ([facility], code = 2777) Department of Pathology, [address] [place] [id number], Technical component [facility] was performed at ([facility], code = 2778) Department of Pathology, [address] [place] [id number], Professional component [facility] was performed at ([facility], code = 2779) Department of Pathology, [address] [place] [id number], [id number] 15:29:08 Test Item Value Reference Range Interpretation Comments Case Report (test code Surgical Pathology = 104) Report Case: [id number] Authorizing Provider: Logan Russo MD Collected: 06/18/2021 11:41 AM Ordering Location: [facility] Received: 06/19/2021 03:44 PM PERIOPERATIVE SERVICES Pathologist: Tom Paige MD Specimen: Mass, MITRAL VALVE MASS- for MICROBIOLOGY then pls send to Pathology DIAGNOSIS (test code = [id number] 3220) uZzEwMzNcZnRuYmpcdWMxIH tccnRmMVxlcGljOTYwMVxhb dJuEGNjnROxC5FdvohmNQwf LJ5kVB8fpNdziQZaeBNsFDH oAiOud1qxe046wIFah7yjSP QSlloytWk2nRdjC46zi8T2N ajvV17xfNMqDQM9IJPbLIFy sZCzGPMrIYT6XGPpjCEdC3g sSQJsKX5oblfaPJqlAVmiYB IboWW2FJSnsGHfX5AcJCYyJ HvhWFDyokd8QsAzZa7pkQOb eTcyMFxwYXJkXHBsYWluXGZ fJvKoVU5dNUZEEsEmKB2ADF JBTCBWQUxWRSwgREVCUklER K1PByLqAY5MVDRURJOVLfia cGFyIEZJQlJJTiwgQUNVVEU hHF6CZABSIRBWG3TIIZDHR8 MXE8CBHJJPMnZyU1MFM4hKP JBOHJjUDp5wkCHhBBWSMSAH KTmgP4QGFG8YERJXWmZFViY AW2NLW2PZOP1FL8NIQVXREe CKAP5KQF0IMCQTXZQUKaNNY DVQDkJYG9nUB5yeKDlqAWBc D77VYsNEZPDTV48hL5cLCXO WEUJJQ6HXY9yZM5sOVMgcB8 BCEGzUXaRIUmQERIVFMA9OB kFZGK4yFHQudg23BJA1WiUn n9D7CVJ8RICbSKYgg0mlOKW mbGFuZzEwMzNcZnRuYmpcdW AaHEIqMyRmz3oqe754oEXny 8viOBPzGpD4hNHfDPYvuDUb N533PDXdYVyjy4nek5SrUED fqECra0D8FFAKkvqzbZg5yV wgX72bw2T4MrqqU1yaJVLfO NUzP7HhAQ2aJIPfFuv7LGG5 ZJF7LWQdHNHlJ3ZtEK4xTVH jkVSpIFm7c4pikZyyDWXjPY B0n9anATkfliDhIJ2qnl2aa Tm5a9rzfjXcHKNzOJEkwLPW KAKxF2RksIbnHn5nvZe7tDg iItdeFQW5Xaz8VA2jev55jw i3gFngYVAsyagpYhL7XDobQ MVnkexeZUi5WEgdNVEmvTN8 MJMhqRCwH6HiTGNnTX4cxtb 9ZLL9GMsvKSIaZgH3PCKtzZ IcGKNcjKizQDfpl087SLV8B gLaVQ8cU0Ykj3P6fS1yeVVc HZMllWEwRgJlFWQuce7saYP wDDooo1SkXSA9ziC1hRPobO XmJNMjOpI3IUvvTU8hjh94H YQrGRZ6jj1jnNWtvQbhxaSh bWOzOZgwB5JiMMCba064ZON hA8CsEXIkc4U2muKuMrVhWF YwbVY5pbA1WQQrCF9bvlqug 4jyEMfqOBjzMSBrdbZ0buO3 BCJfrHJgX8OegB6eHXQsBV2 fpgjmh4edAZU8ZVrdPJEvTU A5DmCjRSBit1Vfbum6FlZvn 7DqbXTzUStnX31lc072WDAk jlLoH0dpaPFcuqiiyBZljsf ePPhydxJ2BDNmKKpxstkpSV FoDQixB3tcDeXlELSanOdeE Ywqc3NlFUOhAGNdEfZbyESk GRGuHsv0DWWbtOSaDLXoNsB lK4suuvnbOwRJMWYuc5bwF8 hbeNMPwYDhF0DhGRwdvrUvN AidALgiBiGcBWPmNC26KAV4 LENiye72 CPT Code(s) (test code m0eioWIdUHVhbEN8AiTjZRY = 3357) pw7hbv8GulEGcfPRbKTeahF SgmbNcjl57wPT9fC39GX3aF EKbTjI1BEJlmcT1Rwa2NUNd OFXmjKStO844i0djw5izmqD lcFB4gWqjZHZimiijKcK0WD oxGSQbzhdvHLs9WGngNIQhz FY7YUZsnKCtO3VtFGXeFF2q hpj7GHR2WBfsJDSnLfV1ZKW viUKnQIUpkDxsHSdra759KB R4QnRoMJUftaJtyZpcxR5rK iSfWDQ4WJOtGEhqJLpyNWVX O8isEET2 CLINICAL HISTORY (test i8omgQXqGEJxqWU8YzGdFLN code = 3356) lm5mhn7OdeMHrdNDwLEzejT DoelMuuz21rWB4tJ84FN1gA ZCjOnF2SOPdgvA1Jre5WJNe YQEncTRpK260l8qos6rtfiR zvXA2qWgwQEOerlarEyP8VH nyCJBzieveGWv7XXzwQERqn VY7CUBbmFMwW5YoTJTsXR5i uzz5AIB5FRskYQNoPbY9CTR yxBHgAATsvJzlHLbpm451JD J8HyNlEIUikzNssZayxO0qX sIrTHHYpqVgV2QsZQs2tBMa cGFyfQ== SPECIMEN SOURCE (test z9xpcRMeXIUrfRC4OcSdXPB code = 3377) tl4tmf7WzlNMieFGrPWrfkR WwzuFjwb10lHZ0qQ40MR3xV QBgXrN3EGYuxkQ1Rae0SZTz RWYkpLIvC116i9csr8critB klKX9tMqcFUZsgfxnWuH4SU yxIIXojqjkCNs3OFrcDUIvz NG0TIYgmXDoW4ByYDBaVX8v dyc9FPZ6VXrlCHDeLoD2SLI lnTYcTZIxkYhnXZmxu940QV B1LeHkXFLacaOkmNnwvX8aQ nMyMCBNaXRyYWwgdmFsdmVc cGFyfQ== GROSS DESCRIPTION v5vyqXEqFKOjhIGyUwJeLFO (test code = 3366) dUOMja2icYTCflQGgBrRkKi NcZnRuYmpcdWMxXGRlZmYwe 2fln735xFOzr1qgQDKqDvA7 fPUqHXSekFFoD849KYSlIGr xp1txm6OjHDBrpCMeb3W8WU YMgvbesMj0tTmeI62xz7M5O yyvT1ffUBIzRJMsZ4DrNM4e CQPgYks9QIR9RUB1AJDjNAC jC1FdQX2sBJMdtPRrFTn3m2 jvzQtuLUPqXVE5f3oqJNaph jFwGU8iws3zhGn7b7nhmpTh OCMaQSJapMSGNZXmD7OqvMk iRq0jgGd4rBuyBrsoEBR9Yd i5HI5tpu92fvr3oWmjMENob onoUvQ2CUeoFXZmvgbbEIi8 MFxtYXJnbDcyMFxtYXJncjc yMFxtYXJndDcyMFxtYXJnYj fqRKtfBYLmNDP6QBlba302L JI5WEyfe1cet3anlCWbWdg5 CCVcZiKmXxghETjcm2Eal4l nVEWovb9dVUD5jYCkpLpyp2 B0aICsRZGtqUOqkxInDRRqI mC0NRutUQ1duu49HRUpOKU2 lu4nuDNjyLluryIasLMoMIn yL6CaVELmq288MURjA5CiJI Cfu6P4dqGhNrWqQBSjzOV2k oU9XDOhENb2mZSvbgN8arVk lPMeR8ekmQ95AtQizCOuN1N zuF82ZyKmcGSmQ8LocH24Vr KetMYiW8BiwV16HpLliMFpD ENikMJgMv7peZXjrGMff3Fy qHPqKHujP36el120AMGplsI zM2ibnZMornptiKBozyqgSE jdqxB7FBHvJZEwJRmcXBDuJ GZzMjBcbGFuZzEwMzNcaGlj wRtzOJumXtQkSUNyVCjeD2m cZjBcZnMyMCBBLiAgUmVjZW g9ZVSecQ1eLo9ocUAhkS1ya IXiQIfyXAU1rPPrZROmGTUc HVQfSP48I1KctY9td1JhKSO gx42eDV9qUSTxiLVmTJkliq FsdmUgbWFzcyIgaXMgYSAxL jExQ93hgO9ktDGrU2HxPJT8 IDAuMyBjbSBpbiBkaWFtZXR fwfM5MT0vtEtvarM6uAOdpH OuLLgugIEdBZloXAQ7Np0mt ROcUYGljsI8q1VlIXviUZUz j7FzfUBfNYEcKkkxRNRgbGY uRUDpbqCtgHfdbV5vAtQcVv MyNFxwbGFpblxmMVxmczIwX JxqmbgqLKNfFYiwY2jfOgGy TDGssKchLJyph2CoAZOdRKK uItKgRTMvHDUud2lvCK33ZZ xwbGFpblxmMFxmczIwXGxhb hvoQAOyHWstZ1iyWrWtURPw dQomJRvhy2VeEMVdNBCrGzX ccGFyfQ== MICROSCOPIC l3eiqJYnGZXwdRD4XiInWPL DESCRIPTION (test code sp7oob6QsdEEomPWjUVfefX = 3371) PmkbCcgl52bNW7hX94PF4zH MZoXuK6HLXcneR0Ipl5LVAs JEQjwEDdA895z4dwl8fxkkN woJJ1yRjlICNkbijnYsB3RW deRHKjkaenZHy9VNjaUQUam CI3HVLzgLIpY3KfEFIoXU0c qct7GBD1FUcfSZNwEyR8KYG jkMDlJFGhuHawMBsyq109TX E0PbBtXSRdcrGzyBchzX0zE xCpGQSBJLYvi5DpNJIyGCBq cn0= SPECIAL STUDIES (test a5wluJMgZQUvnCI1ItVpWVN code = 3376) vd5qpu9VgnVNjtPKnCLnbkD TdxbRwvk46rCW5aL39YK8vZ JFaNtO1CUYuyvB3Mjh7FLYl LDBoqTQsO061FGRvBUPhhGz rrvj2hP12TSHnvA4dfKZxRP ywkyKtJSstjgOnzkOvCwi4N IF1pCboXCNbpyfgDmL6QXhk VRByrzarKGi2YSfxFXNkzHM 4ZOXdlCSrJ7ZsHCVoWZ3ydj b5OIY5QStyTKOgKaC7RLKwb EHoGIWuyIgjXMlmv246SDW6 GyHeKTCkncPgcZppfR0mOkE cZnMyMlxjZjEgVGhlIGludG DddMVkaWQ4lX5jWZ6aUPMjj HUqV4UtGGGbveHrnXFmMEW0 vTIbbLTkEK7uMLokbSVyr8g yy7BmO8ahxKyapTR1CH5sYE DjAVCyCYnzz0AeiS3cAjfeG SRlF9JgRQEDI7ROXEIpZNXM Rh9AIwSZZbVmAiKHFu4tXKn NUywgQUZCXHBhclxwYXJkXG MmGCXCf087nj3wNQEshBVmv mGMmYAqjL2zVHcfULfaHPho qYRbTVemc9umDECsm1b6jAD oPQPdzbSqp0csEAsoimKxVP AljYErnCJjUMSjh48lGSvin CxloBrjUNHfi2NekOmkg2Ck GyAwADlcy0NnT24ykLJltJB rjDccPERfquFjBNBhl85yd3 egCNFpQaU9uVLyyEY9bKQif LNnn0UhdVlqCKFgt1trPKQm ga7ryeofqAChr3LoxB4ausz sSXqqdWDqmqGgRPNyf8i9hR BoEOJfBHOfFFhfaMm3ELSfs 040ic4ctkW5kIEpQSR2MVmz YWJsZSBhcmUgZXZhbHVhdGV tLJOmggJgPVVcngYBiC06pi 5vwEV1x0TvRM8bl3JqxDD9H WNobmljYWwgdGVzdGluZyB3 VXReoGGmJk7kzDRjOPM7GCR urDaadnTCvI5sHKMeGMl5HP KlNpOaAyseoaJEYNGyS5DqG BHrzeMcxcvqFPK2dD0rb0f0 SXohZe3gHJQculsve0wktpV ydEPds4AuXTYokdMts6GwME NoscTmePVuRYUffcMluu2fv eVzEJWzPCWhV7NqfmfocFox epN0LDCkJQPibDXmzGdiHQH pFAd1WAauouTeh7EsRsTffk QfaGArkfRtJD8iDQXltYJxs fBoVQZ2HBVxWTWIOgRnZQDr z9UxHT3lOFIniQqnEHDnjY4 rt0ThYXAos33wCDQhNTXJFH EgaGFzIGRldGVybWluZWQgd FrlzPUlcSBmXDGgGBTnXX6r YCYszyQxfBAnd6EqlEBevjL eg3YezxZoCDYwZQC5TxSMqI QtbWSahDSuycL2c2XqWOUmp fYtwWvxaWTgjHWdzGRho7My on4sWKScn7pbbOxtKK9ivKM iZSByZWdhcmRlZCBhcyBpbn Fql1NrG8C6qU8nKKgqd3IzJ q0tNZKsn6EkktZoYoTSkTcd WOmeJe4lZBPaifystPVuK5L ydGlmaWVkIHVuZGVyIHRoZS WLqJoghRZpzDHTGHVksoB1a 6J2GTyylRWkozZeAR29BXJp KP0cdPCpnYDzc1VeBZf9JIW qM9uMZH64TTedSHCapPQzfJ ocaUFhEJSdVNRorrQzuz2tt XzbkRLfu05nzBO0mOV0LVHw qL3hL9PvUBcxDj1xZHUooyr gbMWulBlnBw5baZIuzG== Gross assessment was [facility] performed at ([facility], code = 2777) Department of Pathology, [address] [place] [address], Technical component [facility] was performed at ([facility], code = 2778) Department of Pathology, [address] [place] [id number], Professional component [facility] was performed at ([facility], code = 2779) Department of Pathology, [address] [place] [id number], [facility] [id number] 15:29:08 Test Item Value Reference Range Interpretation Comments Case Report (test code Surgical Pathology = 104) Report Case: [id number] Authorizing Provider: Logan Russo MD Collected: 06/18/2021 11:41 AM Ordering Location: [facility] Received: 06/19/2021 03:44 PM PERIOPERATIVE SERVICES Pathologist: Tom Paige MD Specimen: Mass, MITRAL VALVE MASS- for MICROBIOLOGY then pls send to Pathology DIAGNOSIS (test code = [id number] 3220) uZzEwMzNcZnRuYmpcdWMxIH tccnRmMVxlcGljOTYwMVxhb iCyGUXddESqO7IaeihjZYry YA8zVH1xkRzefAXobBXyPIS iIdQcv4hwi469hKPfe0jsTB ZEjkvjaJq3jGgkP64pj0G5I cazA73toERnXIF5PYIoTTGj nRLvMMDcFNI8ADUxoNZaX5r mRFFfBH2wghqnALqtRTmoAO FlmZL4FHZhbIBaQ2SqWDLfJ QjnECCygdj0QeNeEa2fbTGx eTcyMFxwYXJkXHBsYWluXGZ pGcUdEW4uUWJFJeXwQI2UXC JBTCBWQUxWRSwgREVCUklER G2MPnXcER8REGHNOSRRTaes cGFyIEZJQlJJTiwgQUNVVEU fXR9QGBXFPLRED8JBQSWXG3 WZY3YXKBZBIbMnB2SIX8cCA JONQLpCZe7zdMAdHGIUIFNO EKfqG9NCIZ8CRJNDWjGXMfK JZ9WBI8VYBY1OH9YBOWXDDz FNCO6AYJ2UYWRIBPQRCySRR ILUJmDHR3jPR4vkJWqrKWSa B06RGgXUWUYIH19dA2hSMEK RWUTFV8FRD1vBJ7tYRVtdW1 IHTFnWIbRIRgJDCFOQRH6FL tTZEL1cHSBjgm68FMI3OwWs h6K2QDP4RLLwBNAgm7faNUL mbGFuZzEwMzNcZnRuYmpcdW WrKYUoQtMdo6oif848wTYza 8jfTOCmLjP8iHOzYXInhFDn R602ALJzODvbc3qjc5YcIFR tmSZrz9Y6GMQBieazqIg5eW snN34mf4V3QvqdX8mlEPQrG GEoP9BvGT8fQOBtUin7LRA8 FFF8HINiGQKrE3QvIM4fKLD nmJMyUYs7s3yntJmcVVPjDR S1m7yvMQhcxcEkBV7juu7yl Nb0d2wcddRoQZPnRDYdaOIR ATUgE7HwkJyyTy0kkEe4gKm rOeqaFAG1Egd6AO3mmr66vi w9tMrcGPKmbdpjOiV1BVqsB XWogwhnMQq0ELyvPDDzaWC0 WTJscFXjD4TfHSDrRH5lmwu 4OMT6PIpoZFKhQpT6TAIzuR CtLKIibWwwJKpjz930KRC7I hNrGC1fB2Hyc5R8yD7swJNc ICEemHWwZiBwKWVxeb8fbNU aLHpcf7BrKTD9csM9zYJasS HdBABuPnD5GZuiBZ6apg05J SRoWBJ9jo6jpFVeiQgcilNi cRKkNDulO5NsUGXwm714DVQ zA3GdHDIrm6M6xkYwHzBsOF TmaNT8jrX7RWHsLL3krgmtu 8ccKHosJUnpHFIfbyU2trQ5 MEKrtJXlF7NzgA9iLSJtGS2 ogpfsj0aqAVF7XGblXIUmHH V9ZaRyKVDvi6Zvzvx6RwCmh 3SkfGBvUFdnP48lm977NDEs itQeJ2xlvMSpdgxwjZWqtjb fRTxdclQ4HRKgWCpgjvelQV CfPNbaT2ygNqTaRGScgQkmC Egep5IrOLFoUBViWtVnxZYy TELgZjh4SSAncFAcOXNmJlF jW5qdumrbWxTZIDLjm8mbN6 dazPCIdIVkN4DjOBhksqZtU PqwZMdvUyBjJNPnGD06FBN0 IFSrgu60 CPT Code(s) (test code h0lppLLqESBeoLW0QnTtCVT = 3357) zi7gmz1XamOFxoLSgLEjhhS DsbvNogz34dCN2uN80WZ4zC TXfEiY1TVDspuO4Nzl7NUVv IOPtcAQqR982r9uag3iashC xiVH3kTqnUFAqqnzyKmP5CZ jsLJVeamhxTIc7LMcoSXHto JG7KGWcsUEtL2XpMKKoPR1y ztf6DKT1GLsxLRApXyZ1HYS ujSPiVHYzgSukYJdzr924AM I4AdWxVNDmewTodBmvlH7hS jNtBYK6WMVjZViyYPqaEZFB F8qyEDZ0 CLINICAL HISTORY (test l6nzfMAaDDJvjPO6UuYiPVP code = 3356) cm9klt1TwdNLsqUPyMFloeD NcmpLimg78qRE3yW78IF5uH VSbJxM4UDYlafL6Bhz5WHIx FVVtzUQcI790h5jvi0wkblX hnCO6iFcuKFUidezqMwN8WJ tgUGUqaknvCPy5BMraXQJjf ZP5CDCfuGDxA5UnRIOgCB5x ypi9AME0KAxkXYTgXjA6XUL vyRZbXFPmrZnbCMnjk350RZ N2ZaBfWGLdceFynSddvO4oE uOeJVJHbpRcF4UcYPc9wNEr cGFyfQ== SPECIMEN SOURCE (test u8vfpQWlJMWckHO4UdCzWCR code = 3377) ii0hjx4NztGNwpJKoBVifvM SxlfKhuh43kPJ3nS19UX8gS LDjKwT8XXHkkgR0Rsd9GQZh FRXceJWeI129s5ups3usafZ tgVG7dEhtNDWqdgynJlT7NL ttANGpztacDOm3PQtgTGKwu NL1HSXaeZCoP7IxMDOgOP8m ere4XAR5HEqoOZTdIcI9HQQ mbEOoHUXwrXriONbds483DK C5YoMwOLNmiyTtsOtxgL2qT nMyMCBNaXRyYWwgdmFsdmVc cGFyfQ== GROSS DESCRIPTION o4fuhWEzNACbcINpHaNnAVF (test code = 3366) pCNKqw5fnKKHheYRrRrFmMn NcZnRuYmpcdWMxXGRlZmYwe 5gky066aVEjv3axJJDkBhQ9 oGDaNHGhrOCoV492QECbCSv ak5qzb7EdNOAyaMWdd5R6VC VUqssnjMq8kYwgG50tx3R2R ckgG7qmATLpAVCxI1KpMR4p QVJyJub9PVJ0FHD9UVPfIKS iD8OmHN2jYDCtnYAhYEh3a6 bymBbiWLSnKJV5o5qlCMkbl jLgZJ4rjm9pcSx6w1ytcoOx UEXkYBPznXBQAALeR5UqqNm xPe2hkXr5tNqsWgwxCPK2Wo d5TR1lxl35cxr7hIveDJAaf nbuPbV0HCqsDMNpuevkPLd8 MFxtYXJnbDcyMFxtYXJncjc yMFxtYXJndDcyMFxtYXJnYj ghSPauUHCjJZG7XRdfc135C XO6JBcrt9jtc1jgrNQxAjp1 GFByYdSzTovvFQpiw8Cyj9m mPZWnfg8qVAW4vEPaxMfyj1 G9wVEnIKSjqFMfjyQtFPGsX yA5KRoeCA9dsv28DTXoXBV5 xz7wiQWabNzislTlwXVpOUa jI3XjXATku782BAVcM1TuBK Ggl3D5daUtKaLrCONytHW6s dF4MCOaNBy5zXDlcnL5uhQv yWNpC9pysG40PfXocWChT1D weA35FbHhoJGfO1PlkZ13Tg CkfFUjF6DcjL20BrMimBYrD VWecKMvDc6jmNXciMLcc1Ea xCRsVHmiI41ea051NPJutbY dM7xvbNSxmizweNUtvycyBG qsllU1RSZmXAPhXBrnQEAmU GZzMjBcbGFuZzEwMzNcaGlj wLxbNRjiFaUcBWFjYBabM0c cZjBcZnMyMCBBLiAgUmVjZW h1BLNifK3vPt2eaHRcqZ3vt HBqHJdbLMQ0jNJmEMHpJEVa DKTwLH68Y4EywF5oh9CnLYG pu67bDQ0mANPijCBiEEkzmy FsdmUgbWFzcyIgaXMgYSAxL hYrK30daB3reVSjA0YrAIO5 IDAuMyBjbSBpbiBkaWFtZXR ncaD8BV3voWyjaxU5aAKnxS FcMNuqfRRdYGbkOWP7Vv0jg ENtOISagoK0g7SnTUuyOEKx z6IwiAYgBSGbBnyvBWRjgTS gESNrvdChaRndmO9nYrYsBl MyNFxwbGFpblxmMVxmczIwX IrdinkiZMQhVTbeP0mqHsZb SHOiyYtrSRygo7NuNPXqDPM vWjMmXKCnAEOzo1vtCL72US xwbGFpblxmMFxmczIwXGxhb srpCEHbDWplM8dnNbTfXTWq hZtxECgfa2DjSRIaMKSiIyD ccGFyfQ== MICROSCOPIC c0oqlNUuDHFwyZJ3DvKaZEI DESCRIPTION (test code rx5xqd8DkuCRsnYQaOOlhlM = 3371) CkwvYlih15uFX4nW53YG9wS GKaRfS5GMCtseZ3Mrt0MXFz NNPwkQBmL114e8zfh0suhyZ sbCR3zCuuCSLgdkgdTuJ0VJ svREChgttjKVy3LIswXLLii EK1PWAiaZMpS7VfEUWwSL1h hky9HLP4EWinGRTgSrD4KVR ilVQvPYJodZagWDrhy728GT H4VaOiQXAooyYimBotkA6lE hQiESMRTWZyg3NrAGOaMNUt cn0= SPECIAL STUDIES (test c3pfsOLcNKAwpDS2LiRaVEK code = 3376) ww8wbr1VfsOTymVYaSEqrsW VojmKuic11xXS9nO10BN8dZ OOcDgN3ZEYdxmV9Mop8FUPl WAZkoNWyE917JFRqQNXybJi rvds8cP27IJOrwR0nrACsKH chucWsADbzrvYtsuAhLoa3W DW0kWfcWUAcskhtBmG7SQnb VPRjfgkoBWi1IYikSCGxhOA 8ERLtoAPdS6HtMQRkNY8wxy o2LQR6RDduHMPtUrS5KAPtk BUxDDJvyMfjYQqbe359UXR0 ImDbYNCwxfQnvOfbqP0dGmG cZnMyMlxjZjEgVGhlIGludG XvqTWbsGY6gU3oCZ9fDYNcu EBpE5EfDTQrmpDjnSVhRNI5 bVYusTUnIN7sKPgwvVNwx0r wu7ExS9uxuCmqwOW3XS6oHZ MqVPCmLKnrc7BesE9jGyotS SNoV0LlNTSEO0CZUJOlVKDR Ch4OKqAIPcOhSiAHIc2zKLf NUywgQUZCXHBhclxwYXJkXG ZxSOLBo189zv7bWRCnnUArd mWHxCQkhX9dOEhvYKbkQIla fNZpDOpws1obISXpe1d3oSF fKEIfegDma6bdQIywomGiGC QyyYJmjVRrKWVwc79hLBjdb XekgTdsUDFod2WerOavi1Jj NbSzZFjws8GuV12pvLBbaIH gpLzvPXQryzUeWCHxa27zs2 mrWRFfYfG2uDOufVF2pDLsk LXaa9KhzTypOVFem7qnCDVb pn3dwnybqFVcq3NmhU6cyfm eHBqkbINmjrUsYAXzj4b7dI UbBHXjNNMlBDyhrYd7LSXdy 389kw3qvzG9sQXrMZG9BYzc YWJsZSBhcmUgZXZhbHVhdGV xYWWdwaCvTJGnbrBGhA76xr 2zhQU3s1BrPS3wx2PrjUB6M WNobmljYWwgdGVzdGluZyB3 YIXutXUjDq2mjELkXLD5OBD gkFewjyWCtJ0oWHBpOBn9CK KnSeDiCwdwboIFITPnK7XhL QAqwjYzjkzjAXK9dN1ye7b9 QHmmGc1dDDGyhrjxd6sciiA awLFjs8SoPQIfmdUps3MqEM RbszVunMPiEEGabeZfpj9cx mVvGJVvQYEjN9BngpunbSyn grK8MWBvCEIvdPSloIemXMZ cSFj6NUpjyfOsy6RkGlSlkl DlpNEenoHyYE8vJPIpsXFoz aBvTUZ7LJKnVPGKBhIwXBWm g7TeHV4iICHyuNzoTFUkuS9 sh2JkJRQfr53sYVQkFTSTDY EgaGFzIGRldGVybWluZWQgd CgorBPiqCSaWQEtKKYoLP7q IGPojpEdyVWjg1RohHWiyxR td5BdwrIhOKZzKKS4OkEZmC RpjARopNFrzhT4p9IkZOPpk cYluCtynWBnqNFfgYGco5Rd mj1eRHXns2azfTvqVI7naFG iZSByZWdhcmRlZCBhcyBpbn Ymx6GwA1J5dT2pAVkpt8CoG g7tYOMls6VewrNmKcXNqLls MAovSu6zETKfabrvrIJsA5A ydGlmaWVkIHVuZGVyIHRoZS HJuHduhATwqDEKKOZsktD2n 8F3SAfczUJnutPkLL68AADw NC3bxRVnpXDqd2WmHZt1KIJ rJ0lLWD81ICknDSMrrAUkdJ wcsQEeRWJdNKRvddLfqv2so CofzEHpy03ytNL1tSF8GQDr jI9jM5SdZGvsUi8eOZYlhjz jaTCruWsgGc4vuNHkfW== Gross assessment was [facility] performed at ([facility], code = 2777) Department of Pathology, [address] [place] [phone], Technical component [facility] was performed at ([facility], code = 2778) Department of Pathology, [address] [place] [id number], Professional component [facility] was performed at ([facility], code = 2779) Department of Pathology, [address] [place] [id number], [facility] [id number] 15:29:08 Test Item Value Reference Range Interpretation Comments Case Report (test code Surgical Pathology = 104) Report Case: [id number] Authorizing Provider: Logan Russo MD Collected: 06/18/2021 11:41 AM Ordering Location: [facility] Received: 06/19/2021 03:44 PM PERIOPERATIVE SERVICES Pathologist: Tom Paige MD Specimen: Mass, MITRAL VALVE MASS- for MICROBIOLOGY then pls send to Pathology DIAGNOSIS (test code = [id number] 3220) uZzEwMzNcZnRuYmpcdWMxIH tccnRmMVxlcGljOTYwMVxhb mMgCPZznXFyY3MctyeiXJog RA7cYI8waJckkJGqeUEtSXO wXxNgg5rhx336sBSvl5boYW FWyotvkIt0oEjmS21fh5B4A ngqD99bmXCvRDY7BWWjTWDq cXJbICIyKZB3EDRygGBqV4y gEZFlDN3deoulIBljLHwnJD CfmKW1QMBrsXUpJ7QoNLUmH NcvCBNuvrf2PyUxSo8rbKVv eTcyMFxwYXJkXHBsYWluXGZ dJkEcGE1kFMZUMaKwKW5QGF JBTCBWQUxWRSwgREVCUklER G9RHpQjTX2UYKDLZRRIUpky cGFyIEZJQlJJTiwgQUNVVEU sMW1VHYXBFEQCK1JEFHQGW9 JVY2PRFXSOClWwA0NJJ3xAU YAYEXlGWt9vjRFnIVGTAHNW UTcmD6RHQT9PTVOURaUWJzD AF7YFE2MWPH8IK5FKQCKOSv QIQJ9CXC6YMVCQYGVIKfTNR HOFHfPAZ8bUY9ojJVsoNFAw M46GAjVRYZLXN17pI7yOMGU UYETDF5SFB9yYP0bIMPbnI4 BXJSmIErTWKcLKSGNKMQ6XN lZZTG0qZOJwai62QTP6XxEu b7D2SRL7WPNaFSKxh1oxPFH mbGFuZzEwMzNcZnRuYmpcdW LfEIEkIsEtk7zad434dSWcm 6ckQEAaWtK0xKYaPAWtvPYi E446TKXcLCmik1ywh6MhTUW lhSFur5B1NAEKuyluoEy8yJ cjX83dw6V1DvraO4qjLATxX PGhB5UrID6qEFFlOsx2YXG4 IVF6NEEwWUOzO9VrQD2mYOA ogPTqPLw8l7orqAhrDONqNO V2f7sfDUdbzvMmIH3ezs4bk Jp7d6udbtRwQJKxQBEioEUE ZLLqY0BaeQehQx5idMg2jEr bEjaoYQL2Pgp8KO8syk94fa c1zYbjYDAavpsdEjZ2UItxK JMpdmyuPLy5BOymAKJggLX2 IQUbhOVhN7ZjUHXuAR4dqad 9CYU5FVcsYFEgCaT8EFLnrO FuWZFbmZmrECcya582YPH7C sSqYM8rE1Wps1K7tE6npDOm PFRvxQHoUiJsZJDnek2vnXC gZMirp4BxKAI3zlL3sEWsvK FtFDDhShA1BBrqXT0xlf94X ZIfNAE9tv6uaRBxiAovmdAv vBQoOYufP4KbEXIyz514MGW qV2RiHSWmk8P8asWnJmVgIL PznHU9ouQ9DSIyFZ0yywelu 2njOIobVImtWPUgblS1pxB4 ABIdoKZtR1RshE8gQDJqDL9 fhjmqz2ibUQK2NGhyUVLfTD Z2VhCyRKGyz3Mbsik7ViMjn 2OmaCBrITejO87tj034UKEb zwAzI4cgaFSpuojlpXHezhu jFJhrzsM1QTKeUWvdzupuMJ WkKGzlQ3bpYjPbKVYanPszD Mwxr0CcDEWvSUQkEaXfgHNp YUVgJot8QUEgwIQvIYWiCjM qN2aarixrAoSSVIWmu5rqC9 bouIWPuHLoL9EdBWihfsZyS HieFDvsQfRwMVAxKN77DMM1 LFSxht47 CPT Code(s) (test code g4qhpMYoCABoxSJ0BmLwIPD = 3357) lc5lah5QfoFBymMEiMVekjH SqahVmzp86cFB7sM82KB7vW PQrXaT4XORokwS1Was7DRRs EBShoQRrW962m1wns1zhpeI ijTV8kOutQJNwoesnMeT2LJ gbGHTfbrdfOKm6MYmqHDVhx ZD2PMWuwLHyL9KuHVKjSZ4n jnf0HYJ0TQrnYXRbCyZ9KSK rzDOdYEFpyEmtCUsot521MV U9AbWbZYNtubMsdZyayC3tU cIyPWF7KKBeKGrlGUfhRVHA O5imERU5 CLINICAL HISTORY (test l5crtJCpLHBegTS8UoMeZPU code = 3356) ao2xkz6JdiEEsvRSnNIpyuV YaswNgay10uIK5uM57RV8pH IXjNgB0ZGJdamW9Qhr3EKMh HVGjcTGbM998r3soo5fihaC khXE6jIvmEMPahwzmAvG3FI nyZSPjxsrfILw0TUlkQLGqp XH5XBBsuMWtO8DpXXFkDI0r hlc0YJZ1TTkyULWfAyB6SEO xzBSnTBCtkQirXHfmq446FD V3QwBrHASudbTzmTpzkZ9nA fLaGRHVbyQcG5AlNJq0tIUb cGFyfQ== SPECIMEN SOURCE (test k8etkIGkOEZwkKL9PhLgUMS code = 3377) kx6hnj2GdsRDrkFRfDOhhdC GktiRqxa84fRC2oZ49IY7zL WGlZkW3QMHxdlK0Rqz2GHBj HCKeiNTxW111l6zaf8kwiuM bvSU4sWvoVLLqqdtlHqG8WR fbNWPljhzkICk3NLhnAJVer WH7UHAhxFTmB5UoYYYoWY4d dsq4LXI3OErpYGRfWqU8HQG oyQEwKCZiqZvoHCpdi702SZ V5JoKfGVMrvtOooSskzR6eU nMyMCBNaXRyYWwgdmFsdmVc cGFyfQ== GROSS DESCRIPTION a3elgVQmPHCxgSOnYzFaGSX (test code = 3366) jJPMkb5bkNVPboDAsQmUeVf NcZnRuYmpcdWMxXGRlZmYwe 2cuc101eOEjz4xyZRXqCmD7 rVDiPGTxpSBrW940GCZuNJh il2cjk5LxSDHkgVVws3Z2EQ YCcvyeqHp3uZclC14bo4G6L iqlE1ucEYRkBHRpV1TkGI4g MQItPxh6ZGR8CGE6MWSjPCG rV1WyDE8pPUMvdKCtVJf9u1 vgpVqmOEIxOQW5g5lzMXkoc iBfMV6yjd5zsRl6r7dcyzNb RYTyJETsqNJLCDNzH7DbhXd rVn2bhEb1yAfzOgouHYI3Bz h6SS2tpv24zyc3gIzwJKWuz cooOoT9QMucVAUnqkpmMOf8 MFxtYXJnbDcyMFxtYXJncjc yMFxtYXJndDcyMFxtYXJnYj ueUYypJEEhWRJ4ATdic709X BX1QUwnb2flv3vxiRHeYno6 RZQtWfOeSfybAAivu6Upb2u tXYNwok6bFFK8uKGcuWtzm4 E4cWQcZTLeoHWagmYrXZMkQ qO7YQxoOP3whx35BRRxKMJ7 tl3deYUbqCyajfClfYAkEVv iG8KmNCToo486UENwG0ZdFR Mrs8I8cvBfYmYaCWZgyLS1j jA9JURcBZi8kJHulxG2znQm pQVaD0isyA86VaOmvAZiW9D ivB07IjMkiALwJ8JftA43Gn SizURdR3VbgR22JpEelAVkO CYwmLToKx0qfIIjqUOdl3Ux pARsQRyyF13pp286VTWvhqT nA6jotROktbbhlIBujpgxKH byfpA1ZHUkHGZpRPuxZWJsP GZzMjBcbGFuZzEwMzNcaGlj aEskYVxiBvUoOUOpXKzlB1j cZjBcZnMyMCBBLiAgUmVjZW y9UXUwuO6wIi3pjCXgbY8nv SIvNQwvGDN8hETvAJDaDWVd RGWtTD53A0QnjU7ga0GpCSE ea31jFC5nZJBapYVaHIltkp FsdmUgbWFzcyIgaXMgYSAxL aXeL73ohF4ngRLtR6VzWRM8 IDAuMyBjbSBpbiBkaWFtZXR kerV1LE5chMzuvyF9fEYiyT TxQXfomZKkRNcoVJE7Mz0bx LDtBNLblpY5m2IqGKcwYYXv c9XquHTiMSLwNaiyNPBurBP gILVqruSmaGffxN5nUsWqVs MyNFxwbGFpblxmMVxmczIwX UfmfaubWDQtCAwtQ7hwUlDl BLIdgQglPSeha2AdXILdJIE cTwBcMOEoWJQwg8jdIM94ML xwbGFpblxmMFxmczIwXGxhb ylrDSZzHQxdN6piWrRjCZAq bMvpWQzqf7OgEPLrCYBjWvO ccGFyfQ== MICROSCOPIC e3eyjSJtWGLtqWE2VkRfQKJ DESCRIPTION (test code mw1zzl8VcwJDquHZeLForuW = 3371) RldxBhiy80qFR7hC72ZK2hJ KMuZzE3QCSyjkR7Hlo1DKJo DRRbkWGvU509o2nit7wsqkO xcIM2pIvmFEEzmdozYuF5NA ziJDBulcrkLCi6FHgmDMXiy UU7OEWcgLXmV8CqDXYpFG3t pda3RCE6TFgfIENjQfX8TLL vkAHoVLYohJouIMijk399OT G8FvQmWXLkrtGlmOkktP4jO tWdVUADBGWie0RjSRRvDDIp cn0= SPECIAL STUDIES (test b6awyPMmPBJyfLD5IzFaUXV code = 3376) wh1www9LzuXMhsXLiJXokpA RmxeUnrk28pBO2wH88SD3gA DXsLpZ3QCYwjvZ6Uae6BAUk KELoqPAkN370SMNvVSZoeQm fusk6kW73FVZqfE4fgCEtJY mwqpFnXYpsvaWjrwHbHoh3X SD0sPutYXDeixqvCiC6URno WGEaqacuMDt7WFqnEVVtbTT 9KGMcmQIuZ4WjMGPpPT1zxs h9KCX0UIaxOBBdYrK9ZWZtl ASzWVIqqKtsSWkbp367SDT0 RvMfZYZyhtRrcFsdvQ4mGzG cZnMyMlxjZjEgVGhlIGludG CugGTjsYB2eA3tGA0tPWGfz CUeQ0AyFSFgzwYfnYAnPDO6 hZUvbJRpVB3gJShmcJVsn1k fp4MoY7lmtTjdhQK7JV1sVO WyCSJnQIajx6UerU4vJjouC LVlJ4SvALVON0EVNVUtKTRW Hi8QKuODYqIyDbCLCr5cORy NUywgQUZCXHBhclxwYXJkXG HcSDZRt578on7iRNHhnZXsq pCNoYNqxD5kRIikMRuyJDwa iHMhUHtwg0nkBGNwu9x8jYP cKBVcpkGuj0wxPNfslzOmNJ FxvMIvbYKzWYZkk42gYLqhs NejbShvKETut6IgkXyns6Dp GdJiQBfdo4FpL90xnQIrnUR ruAbaJTYteaJjUIMff65az8 ddBBDyGsU5nEWttMX2lLFod RVnw8MswMjbUMCam6fqNOWr qe4xzlphpFRev5OkyY8qlfx pUSkoaPDkqaGdHOQzz9k5uB ZiBFCsRJFvWTwhwFf9IDLzj 020md1wptY4lUPhNEJ2IVyq YWJsZSBhcmUgZXZhbHVhdGV mPGOsqpAkZQCdkiGCtQ59ec 4xoBN1n6MjBQ0iv3KnnHB2W WNobmljYWwgdGVzdGluZyB3 TUYhqBUrTb9uqZBgIJC8FCD gpGbezbOFlZ6iOYTvDAn8CL GuFxWiMjyaeaEFJHEnV3QuV GJhnqPoealxRVI0yQ1xu4n9 CTzuWh5sELSygavlz9kauzM srQPyd5MhEPKxpgVqa6LlEJ DbxyLrnMCuCRVshcXoyo3so kOwBBZeDHDkR4PtsgxmnMii oeT6TBCuYDFjiQPacXgiHON mAIz4NYzvlnZcy7OmCsOyud JttEYmhtNrTL9hVFVleOBkm xPfCBW3JLVpCAETVpGuMPVy f5IfGN4mIYKbsQcdJVTooD7 ns6NqAFPya32iSZHaNMNMDA EgaGFzIGRldGVybWluZWQgd EkfoMPpzJLzAIAoGNRsKN2s QBCykxAzrBZif3PkbUCqoxL hx7BnhmCpGMRvWEZ7DcBKrL KhpTUquQFpzaK9r7HvZDImi gGzzUnnkWSlxPBmnXXex3Lj zm7mEVKxs5fkwTbuZV7saKH iZSByZWdhcmRlZCBhcyBpbn Rkg5TyD4F5xR5mKRjmo4RaF u8rYNBwo0DypmNgNjZPzZdk TSucRc0lARTgrgowvAReA7U ydGlmaWVkIHVuZGVyIHRoZS GNrSqqrGYmwXLMWVCyqiG1j 5P9BFqiqCRgosPlIM13HKEs XI6sqIQxsRVtd0JgNXf1RKX rQ6hNGF94IEvpQECjyFHtvO karAUrCTWwOTLxtpVhaq9uw IihaDDeq70anMM1cRL1HIVp dM6iV8CfTHngBz0dIKTltpm yqHNglVtxNs1aqIJqcY== Gross assessment was [facility] performed at ([facility], code = 2777) Department of Pathology, [address] [place] [address], Technical component [facility] was performed at ([facility], code = 2778) Department of Pathology, [address] [place] [phone], Professional component [facility] was performed at ([facility], code = 2779) Department of Pathology, [address] [place] [address], [facility] [id number] 15:29:08 Test Item Value Reference Range Interpretation Comments Case Report (test code Surgical Pathology = 104) Report Case: [id number] Authorizing Provider: Logan Russo MD Collected: 06/18/2021 11:41 AM Ordering Location: [facility] Received: 06/19/2021 03:44 PM PERIOPERATIVE SERVICES Pathologist: Tom Paige MD Specimen: Mass, MITRAL VALVE MASS- for MICROBIOLOGY then pls send to Pathology DIAGNOSIS (test code = [id number] 3220) uZzEwMzNcZnRuYmpcdWMxIH tccnRmMVxlcGljOTYwMVxhb yFbTOArdATrU5CusufmHTgd GP3fVQ5rfCeadWGgrJZzPFO lGeYqf4nll753wOXtf1trBU ERvsgfpBl3vEedT92zn7D3Y hgtA99owFXoWNW1TRCnYYNt eNVzLLQtXEI1FUHphKZvW0v bQHIqYA6frzrwZPxsVIifLI ZiwKR1AGBvcPGaE0UmHJZgI UszIINzufa9GvIeYh7phZOq eTcyMFxwYXJkXHBsYWluXGZ sSsImGR2jRINXYsCrWX5SCA JBTCBWQUxWRSwgREVCUklER F0IEbPsQH3ZHQYUPKSFLnzm cGFyIEZJQlJJTiwgQUNVVEU fWZ5YQUVCOKPBL8ZTTHXMV1 YVJ6KPWCRSPyXjR4DPU9dHM LKVWKcEWy7ttKUeEDVFWCTB TEaiK9XXJB2FUIZGIqTJXhN BB8KGX8SUFS5FS1ICXOXJVt EIOZ4HUF4LQQGMOYWFTqMNW UVFWxNGJ8lWR0qjNCqnZKDx Y97PLmCROPIRR26tO4tILXX PPOBOY8UHC7dUJ4iODRpdD5 VIQHdYAqOHGvUJXIOWGI3ET cEEAX8cTSQgmy09YML8CfJy s0P8VPK2NBJdNXLee7vjHOJ mbGFuZzEwMzNcZnRuYmpcdW SyBEVfXqLec4hif672sZFhv 1ukTEXhIzY9bRHhNANzoRGv M442VFHxDOkmk1nzb4UjTSU aeDQke9J4DAKZuifbsPk1aB eoH06ix7C9JzhsZ0noEKLaP IVqR4NqTK5eQBJmNps4GZW6 CAO6MHIjFAHiL5PlIR0rFSN ejMAsMQn5w6tqlTbbYMKgUE E9e9ukGIrrfxMwWC8esf0bg Ea4c3eycrEmRDIcLIJryMMW URJjP3ZffZmtQk4peZe4aFk qHoreCMM3Efb7PM8cmo41wr h1rLyiHKBqvbkyCmJ9HJcwP BXelovjGUj8RNorSRFwpHW2 ELJcbUBnQ1ZiLYDkQZ1euij 6XLP9CDrsDTYhJxJ9CUQxdT DeRIUyxVchXLhbs801PQD6H gHkRT9tE7Fbl7G2uC1ykJYs RRPgsGWiJwWlPEKrew3fjJL hBKzhi2RsPXW0umC8bUAfqW RvHQZvLlB9WSxkTW0kra09X UEpTML5mx0gxTIhyDxfngIy qWOlPBbaH8RpSRPnx418GJK uP1RdRTBrc4O9jyUeZjPzMM TobVA4srH0XGSyAP7ffnirn 7pxMCbyWQvsMMIiohX5ycG0 NLXfpSIqO1WgjW5pDOUeIN8 sblbhm7zwPCN2AWhkICKpEZ S0CnDcZJEma4Saprr4XeAyj 3EfmPSnBYuvS32xw892YIVz inElZ5zsnNDmxwsghVTriik lAUktttD9CRTlXWlqohsxAU UqOEtgJ3trQfNsXEZfaLqzJ Vdlw1BkMQUbMRJkTeOxcFQl ELXkFux7ILAkdXYzMOEgXoT qR8vlhtikIgFGWITaz5juD6 gctYVOfDKlU1JnRDhpxrFsA VibIAurSlCfWDNtBM82WUP1 JKTddy67 CPT Code(s) (test code i7cglKSmWMOlzZT3YqRlTNJ = 3357) dx5drt5DpjTIqyTIiMBtuoX CawtPkpx84cYA5uH80PY3dV UVzCnB8XLUxckU4Giq9QMPv OTLxzJFcS974s9hpd2zfbyN upYU1dAukLWGtkwskAmR7GG khVVCfxzqoXEt9DMjyWAIio UQ6AKHyzVSoA3ObRTZjMJ8p uuj4WMX9UGzzCQVrKlA2MWR erKQwSOEbjBoaGOhtu719QI D6JsFrECWhnsXbvYpcaS2oU xMsIYV5LKLvBKloICrqAYDU R7btLWY4 CLINICAL HISTORY (test x8nglXQgUYAdbKI8XkQtBGJ code = 3356) kt3myo0CkxVGfkNXeUCrlaC GimyJnsx40mVF1zL81BE2bW PYeMiJ3MUMeynU0Nfg5XHZb NQJiaYSeO688y9gtn8bmmrO ivCS4sFmvNADrvddyCsI0PI cxIZEwqbqfYZu4KKcpPYTxi HJ8BCCvlSRvR6FrYXUnAK4v gnk0WOF0HPjxUCOgIwE1NVS pqIUsGPNnzXtgYZsid217OV W5VpXfZDBgftIkbTcjzR9dW xLdYUFIvlPzP3VnBCi0nSEn cGFyfQ== SPECIMEN SOURCE (test s9vryVKnUNZxxQP6HaSpXAM code = 3377) nd7vlr2IznNIubZVfOSyrgO OplkPvly51vEF4uN56AO8cH SMmDmR4QSPiuoC2Ahs2UTEx RCHacQQkB777t7xmn9qumwF viUO0uStrYEBfsiunMoO7AI cjTMXpzfxpJJf0NWkzOFJxe GC0OQMopLFkJ1QdPPJwID8g szg9CKW3OPhnBGIgGuW5HRO hyEJnEWJmeSqwHSvku964BN O6OnUqYNMmpgMupYtcnQ4nC nMyMCBNaXRyYWwgdmFsdmVc cGFyfQ== GROSS DESCRIPTION s6ckvHAoTFPzeYZxXaDwUSA (test code = 3366) fRPNyh3omBNXpdIXbOyHeLm NcZnRuYmpcdWMxXGRlZmYwe 7gjz744oYEvh2xuJDYgDaY1 dBOtHRFiyFKdP201SBBcAGk il7zyj7YgYDSmsGAmk7U2XO TMdqvmkLg4dKwdH73eh7P7W hutN3dlXXZxLHOgS2XtKR1s HFOeTyz0TJK4UBO4UXKeJOD dS9AbGM3vDAQpzEYiWOn8h3 orbEzvXOAgIMD8c5smBUcso dKxAR5ztq9dlNm2u0kvaiVc XBTbQTAgzAPODVQhW9RcjDb lDs2erHw7cFmoUmemMIN1Ui j4BG7rwd63sfz8yJopXQWcj cpqByJ4XWdkPCPvekpuVJe0 MFxtYXJnbDcyMFxtYXJncjc yMFxtYXJndDcyMFxtYXJnYj hoSWebPGChBLO9PLrow478D BK3UUrwn1rfw7rsiFQaQrs3 ZQMdYhRuFkbzFZeke6Rcx8f iUMQtbg6oWLI8gAXmjJzbe1 L7nVBjVCOjcSByunUxOWDaK tZ6OVbpDR6aue51GWXvDPV8 ot3mjBYzrHgmezYayKWwXMz bV7CbHCZqa091WIXzT8IlKT Crq3G0wcAiXlLpJIQtiKK8b kI9JIGpMFj5mGSybrA3snWj yOQkQ7jvuB95YxKdjAFbN5I iwD58OoAzqVYmZ0WlzP52Zb DvzUPjL4JstL97WvTsfSLhA KEpaTFtBx4ugFVysBThv8Xb eNHxXKrcF35un038VDCahtG kA8wyoRHehibobYZloulmNI utltE7NBBgBFPqVAizMBZwA GZzMjBcbGFuZzEwMzNcaGlj lJtbDAekJvVcJFMsIHqfC4i cZjBcZnMyMCBBLiAgUmVjZW l8RVGuvT1kBp5imJKamT9le VCqEAxbPBM5qKDpIUWeXHHk ZECwRO74W5YzjC4xl0WsWHR xk12uPQ9dMGDlxPWeZCyfal FsdmUgbWFzcyIgaXMgYSAxL lYmT00uwK6prTNyJ1DdHMJ7 IDAuMyBjbSBpbiBkaWFtZXR uigB0WC8ekJfssjG5eMExbS VbNUfvsDSpZVtnQYD1Bq5lp EHsLHMxcpU1s1IeIObyGHUf z5CojSBgMFCjLkepJRJlcUD lIVUibgItfJdjbI9lMdGqBq MyNFxwbGFpblxmMVxmczIwX EmskgmlTNEiGHhkI1xwGhTs AYSoyVlqGDpfp1JaZMUgFXD xDqVdIHTsUPGjd7fwPI83FE xwbGFpblxmMFxmczIwXGxhb zslXNOyKSxkB5vwYdObRRXp nJhsSMyzr6DeGEKfPVCuCkK ccGFyfQ== MICROSCOPIC g1nhvGIfWHAhzXV0QgIvUWW DESCRIPTION (test code vr6ufi5AbiGUqqREuBSuqdC = 3371) HongQkvf91zHA7jQ19MR8sR WOkFdE1GAWzqdU9Fgj8ZIQf EPNkxOUzY928e3uuo6ennkR weYV4iEtiBSPbvszgBlT6XB ptKKVpfkhrBTg9DWmnMXHsz AC4UOJofFAvB5RtIYZfUB6p wyi0XME6VMisKNQvBaY6KGB wnTWuPZHryIboJOyhp546CV Q8GmIdPTDftlPgvEqqsZ2vA dMxXGOYBKHti9RgCAZpQBWm cn0= SPECIAL STUDIES (test n3dofQLkKWIgkPD9JcDpSNH code = 3376) sm5lxk6JsyMMxnLIaXZtmsA RjmgMvch18vEJ7zB04OS0jT KOoZpN0ODYllbM2Xmc6MYWw GWEdlHZpA871EBOqOENwxFj bfyp2uK24RGNudX1rcDNfTK buseAnUWghmkDckfPbVvo4X FS8rArsSUAnmrenOtN4XJoc EMKvhrkgIAi5SVcgTBRavKP 2KLNiwUCrB2QsGKCeNM8eht a1KTO0OIfxLEXqAbR5IJLnt FRqXLMdoKdxODaww210ZHH1 BmIbYEJbkbDszHpcbY3qYaF cZnMyMlxjZjEgVGhlIGludG LurMCguPQ3rK6pAB2vMFFan RYkK1LkHYAkgaCzkKWgJFB9 jGUtdIKhRL6eBRpepEPcn6g ce0KmQ9gkaObwuAI3UM5fIQ ZzTCFjHXoih9JgaY4kUxpuH ONhN7JoUESXZ2HEGKJcHTFR Me0OXsWJTjZrRfPKRe0sEMe NUywgQUZCXHBhclxwYXJkXG MiBLLMd353if7hFWSxvTLmw cDIiRHggH6eQJmfEOddIYjx tVCwYPctz7dpKFFya9n2mGQ oHOLrcoUbp7mmFCibxvBbIG RpfDVyuLPqMAMjg64fHHuuj UigtVnlGMQux5MeoCybb0Mc CbJbNSvao3EwI34xyHQnfBG fbHgrXRUevnYsKBSrm67so5 egLYUiHdY6zIFowGA0aAWcq ZCaj9NjaRswKWCax0fpQVPu hs5lnnxdnBQjw0XzvY4asbl bDYupaYQuhrHhZLGoy6a9kD WaYCEtXGYbKWvogSs1XPAzk 562je0nloX5lHQcCPE4EAcr YWJsZSBhcmUgZXZhbHVhdGV jIRHfjiUkBLJssnQZpL74wz 8qnUZ0n2TcOI0hj8DnqXF3F WNobmljYWwgdGVzdGluZyB3 TCGjbILgZm5wcFUeSZV5QNV amApxzqAZjR2jWUPiVIb9VL AiOdBkJreixmGHWMTaQ0UuA RVgbbFghuvbPKS3nK3jv6u6 YHnwUr1aJRKmhdflf3cvuxI kpOIbw6CtMIFbggYlx6ZsLB LbeuLlrPUdGHLjmpQzkj7rq jFvBKWqKILtO8BsmbjjeJja uzW6NITfTNXdaOTzpPdtDVA fAMn7TXhsrpFma9RzQtFwvg YttJKzwvMkZR6oSUPztYVjr zJhBOK7VVEjKJALZqXjJAOh a9TzZY3sTAQujFdkYKYtgF4 bm4FlVZDrd68yBUEkPWVSCZ EgaGFzIGRldGVybWluZWQgd FfwtYWueMEiXLXdEIVxKI6m QRItmbGnlBWbd0PirYGsgwC nz9BktxBsFKBjPFD2AoKDgI TkxLUqpDEbkmD4j0CtUMGoa uJelJemiKMczHGdnFMrr0Le yz9dECKan0ullRvfCI6euZJ iZSByZWdhcmRlZCBhcyBpbn Wbq1CkI5T6uS8lGDaup4TdV y9yQAKtb7GdudUqKkMTeGds KJacGc2jOQZfaufgtPUpA6H ydGlmaWVkIHVuZGVyIHRoZS HHnLwngHXcuNUBODMtoqI1s 9W0OFhpqLCyyvNoEC01KWZq CA0xgRWkkBHle6PyOIs5QSQ gP1jRFD50PJfbQYUgmSUmsS dudPBaGEZdFOIonrBayx6uj WkntZUxd43faXR3hFW0SPHj dU0tS0XjNFijYp5lPELqbgc cwBHlzQoqAy5zrSQfrO== Gross assessment was [facility] performed at ([facility], code = 2777) Department of Pathology, [address] [place] [address], Technical component [facility] was performed at ([facility], code = 2778) Department of Pathology, [address] [place] [id number], Professional component [facility] was performed at ([facility], code = 2779) Department of Pathology, [address] [place], [place] [id number], [facility] [id number] 15:29:08 Test Item Value Reference Range Interpretation Comments Case Report (test code Surgical Pathology = 104) Report Case: [id number] Authorizing Provider: Logan Russo MD Collected: 06/18/2021 11:41 AM Ordering Location: [facility] Received: 06/19/2021 03:44 PM PERIOPERATIVE SERVICES Pathologist: Tom Paige MD Specimen: Mass, MITRAL VALVE MASS- for MICROBIOLOGY then pls send to Pathology DIAGNOSIS (test code = [id number] 3220) uZzEwMzNcZnRuYmpcdWMxIH tccnRmMVxlcGljOTYwMVxhb gQqIVEljJWqV8TzbgdcQEca NA9gJO9syTbwpPOcgHLgMST zLbRwz4wij931hNEup2nuCF MCthyzyCj1sGroQ15ju1E4T cwtV59xqZGvLIH0BSByJGLq tJHoPOWvEZF8PTAchMQkQ6p hMUHlCT2apkihBLscWOwqYN FwdKF3BMHlkRWoW2PpIOImH JxnLUKvbig9ZwVeKe8bqPBt eTcyMFxwYXJkXHBsYWluXGZ oBwEyLN4fHTXHJcJvUU1AVL JBTCBWQUxWRSwgREVCUklER W4XVfEsOP4BQXFQYAYJIwmi cGFyIEZJQlJJTiwgQUNVVEU pUY5PXXGVJFBDJ0QUGMHKZ0 ZEG7ETZURDJsBuM7GMA9mVM QZYAHsZJg7xrRPoLHTBXTTD FZixJ7OOBQ3JTHEPCjRQImB VS2HSC3KEXV4LC6CNQNJOHl SWBZ2PPV2YNHKIXMDQQpGVM OHUEdSDE8dMX1fwRCbsZHYc H04JEnSSXGORQ01iJ5oJDMN DJYOVL7VZS6fJK6aZYAhfD3 UXMHfRHyPPNxXLOEUBPV6TE kICGO1xUIEkaq81GMB3XdBt j4V6HQI2CYIzKKDcx7nwPKI mbGFuZzEwMzNcZnRuYmpcdW YoXHAeGqElb5ita640kRTvx 9vzNGJnUuJ5qGFhENRiuCTo F861LGIdTCmtc6sas6IyCDJ pzSTnd0M6SFKIzjwqgEd7bY hpG79wv1Y0IswtY3sjGHTzN NUaS3ItIZ0nLGAsOok1IGJ7 TRI7TWHaYXGmI7AgZR6jFIH czYOpBRa9d9bsmRmpHVJdXK O5o2nrWMazlmEsBY2kfv3ux Ak3x1vislWqSLBaXONjcHXA KTPaS0WauUtoGc8bbBj8qFt jZfxpGOH0Sjf5VS6fjy77bh c4iHxoPIOwqqmeRrW9IIkiJ ODsfotiHOb2NGtgHHNogMT9 NSPwuZLoL1AkMFLuSK5ywyz 5CKB6DLzqCRDqTpS2ZMNcxZ ArTELrrUruVRstm290HKY6Q aZoHI8rS9Wxh2C3tP9cbSIq TRIkqYVyCtDjGKPloj8dhGV dGBjut7EeCHI0mfN8jCNurO CyISTvXtF4SCdmXN5ctq94L ECtZQL0rq2uvAEjcPrzkuXn yFBnRWwjX5PcSQThd541FKX kE4PoZISiv8R8mzKmJbInVA GivBV7rtK7FDZwRC7eervti 9ebIMnhDNewVUTolmV1vbI0 YTMhcALuZ1ZqwG2yUFYmQH8 fhlhqx5czDMU3OZgeWGBxXG J3OxYvNYYfr8Kdzuk3OlGgg 7MaoNYzBTsnQ99jo968VSEd ucLgI1ykpZJyfmptuZUelim yBXsojzD3HEQqYRzehzfqBB BmZHhkG0oeKdTuIVSqtDizZ Gvol2CdTOJiELNoGuIkdEDv KERlDch4TOHtwRCdEOKrKfH lX0ckdwqxWxQDRKNex9ozY7 pxoSHVvSMbK4VxZVsquvMuC LmxWVacGiGhZWEuYA74EOE2 EWXzyf74 CPT Code(s) (test code h6eycWSrLBWmvUZ6StSlZQG = 3357) uz6wlr7WltMHwxDNbGMuckQ TfzqTghr18lER7aH36DT6lT QGmAaX0MHCutaB9Xkb6UIQp PWJpvWLiQ219u1zvd5kmjbZ ryNR8kUmbKXYwncmdOkL4OL vjNHTcprfcREb9MIesZXDrs AS8KENdoCCrE4PfQLLjTW1t yvl5DBV1OOpxRCDaIdN9LHL rqXFvIZVkqIjeRYnig680TR P6FnTzAEFjfrQovGxzcW9jW jYwIOU4DXSkIWqwKErpEQWI B6ciTXY4 CLINICAL HISTORY (test m5wnnDXgVQWszLG9AxGkFHI code = 3356) oi7sgu3SdnTWyeQWoNEmnaL MqpbYswc84mRC4nA75SN5kU TUdPhS3KTParyR9Hth3FAKm VQHzaGQiF056r4mob0hbxfF naBO2zTnoTTMylkbyNlG1FS nrQJHykuxoLCm4WXkuDMTni GA2IXXvmSVuX1ArFQMnVQ9x dlp5YDG6AKwmKTSrAdK1VGZ kkCWnRRGwaAgvZMixb632ED U7SiCqPHPedvXvwGigvN1bF uDjRJKSnkFiV4XpBSt6vITw cGFyfQ== SPECIMEN SOURCE (test w3dogBGuVLZtaFF3LhLaXCH code = 3377) lr5mgl3KeeGDqgQJySOkguD YlkaPhjj71hTZ9uY71FE8kW PKhFrJ7GSUwwwG9Ssb6FANz TONuhKXxP617t1yet1govtV twIH9mWglFYYniizyWaK7LA jpTQOlqpahHVb9EChrLXIln UF4RWZysKGzL4NlWACmVP1e hum7VKI8OIrbIGReYyU4JYR glSOoEYUbhXruBHkvn732JR S9KyTeEJAoepMotJtisH5bT nMyMCBNaXRyYWwgdmFsdmVc cGFyfQ== GROSS DESCRIPTION g2ieyGGzUPHxzQIpKmKlRJE (test code = 3366) mFUBvq2khSKTbsXTlWsQeXi NcZnRuYmpcdWMxXGRlZmYwe 8wic002jLFcm1lxSUHsBfL1 aFByVENjwPVaX938NWDyBPh om6qiu2MxCHTxoNOhe6B5BA IRwbqvtPg9pTvjI36hf5B9Y mjsI2uzECJeFVLgI6CdMJ5t ZUSpMaw6LPH3FWH0NAJiBAN oI5JmYL7xIXZfaUWuHRy5l7 iuqPfnRLAkBOX5i6piYBfer pIlUA2ulc1yoNs3h4ejrdIi EUOhVZEmhYHPDCDfM1EecOt lUo4mcEf1bBtwGkadPAL7Rk h5FC5ncl58dig3uSreXOVtg chjKfA7ZIesJAKkvgolOQk3 MFxtYXJnbDcyMFxtYXJncjc yMFxtYXJndDcyMFxtYXJnYj lxLMmoXQZaYJQ1HUhkd246E WZ7IPerz1ixl7mzkGSeVnk5 TSSvRaCmPmnjOWquf6Txa7u wKNDfuo1pNFW8bMOxuRdwb5 S8uDWaCMRgsEJutsHeUIMhU eR4SNfjAB0yhd16GKWgBYT2 op9kwKFncJlzbjNpkSHvGJv gU1YsRBPhz559NQCnR4FdLM Peo9Z2ccKjLeLwHKDqdWF2i zD4FRGcEZr7zAJpetC2ncLp sRUgZ5kjcA10AfZftWFsH7H nyN30HqLwtKCbE6BftO08Ya ZbzKMjQ0EirI47TvNpnSDmI IZpiRSgYm4ziDOqeXFdo8Or sYJoWSqwC27xv342MWHdwtC jC0ilfCRxlyfzhVHvbfcqKB pbxuO2YGUvAUJgQHyxCIIoN GZzMjBcbGFuZzEwMzNcaGlj mOmxGDqeVxIaNYFfYDeyU2j cZjBcZnMyMCBBLiAgUmVjZW o2GTGukN2cHw6bhEXtxL0zh ZQpEPbaVGH7vVBlYPOqKTGf YEXrSJ06X2KiiQ2ys1UeSPE dm16rHX9zTPZkrCHdQYtume FsdmUgbWFzcyIgaXMgYSAxL iKlZ55juK1eeVPbL0ZsLHS7 IDAuMyBjbSBpbiBkaWFtZXR nylU7UL6heBhkplI9yHOjpS HrTVycsVMiHXvjDRD5Fg3ni ZUwQCAtrkA6v9DsMAisSUFy b8XjvIPxFBUpNkojYMKukJO aOAJzbwWpzCpdjT5vQtGeFx MyNFxwbGFpblxmMVxmczIwX SihzgfjEHLuQJzwB8txDoFf AWNgeQhzDZsqm5VnRRQxGSK uEmQfUWQxTKDmx3ezBQ82SU xwbGFpblxmMFxmczIwXGxhb aysIUHeQDwfA2eiOfOsFZAe hRjeVMejr9UvUFFaSRJgPtR ccGFyfQ== MICROSCOPIC c7iqkHCpUGHdzYZ5FaRpGVQ DESCRIPTION (test code nj6ymc5CzdDRkqNTcIFmsnS = 3371) YmktJvqu42cFT7iJ32MN4kT ZLhBjQ7YKXkiiJ9Tgd1HPPd STJzcDDsL000k4eju9voytC ysHB6zCceJACctuezJhQ9LZ tuGWFyalhzVSn6PHbtYUNld TQ7QLLgvHGtT5ZgCSDoWS7d ize2AFB2RVsdJTCmFsY1NZE sePHeROUggYxxLQgrf461DW T0YvKqHDShawWloDpgvY2rV pQiRONOQCKng0YyJBGgBDBk cn0= SPECIAL STUDIES (test p8effNZgNIUcqSU5QgEiDJF code = 3376) jb1glo4VjrBJxyKBbNChbeO YbnzMzrb10zTH9uT91ZA1qN CPlWtP2GIHmnpU7Npe4MDRh JWLocAAbR196QVRpCEUgsTk kuxs1fJ06IERvsQ6qeCIgKB qmysHaKQgthoEoooZnTwk1H RQ1fZuwPPOhootuAvL2MOzb CIVwchaoPLs8XGhqYSVtbDP 7MWRcoWRvK5CwGQBoDR3wyg w6CYR8MUmqFGLcQmO1AEBvx SBlUDAciNcfCOewb669NOD4 UyVeWIEdtzIfnPqcdD7mLtP cZnMyMlxjZjEgVGhlIGludG GaaBOacON8dX0bCQ1hXSUhm CErK2OsSXNqhsTciKCoTEY3 cMVctFNzEW0eXHibwQKcb4z xm7DsM7tpbZuilOF6OX6tDS IbBAEdVYhid3ZxyJ0dAzjoZ UPgR4JtPIIZJ6JTKMQmMZKK Im9QCgPTYxYfGkNUUl7vNRh NUywgQUZCXHBhclxwYXJkXG QnINRWb381ga7fKZJoyWEvk uDTvZDfkC9iIMrqSDgnIAdq mVZvFMjai8leRSAfk5l4cCE zGXIfxrUau8hrRPrzcpAfLL HehWMfeHRoRPQkp93zCEeml HtrfSeaGFBlp8GnoOkzp6Pc RfLyCBjns3JdN28tkKCsyAZ uuXwkXNLhzvScKRLpo55oy8 chKUQgAbI5wIDaoTZ4oVIaj UEcr2RmpOwpKAKuv9cxHDZz ua5jfyxarJAbo0RhmJ5rnux cFRbbuVSedwFiNOAad0n4hI SqGKRgATUsYLhidWr4USSvz 519dz2ctkU1zBBsQCT7VZjz YWJsZSBhcmUgZXZhbHVhdGV kQIVnftNdIIGhpsUKfR15bf 0gaET0h1DlBJ7eh0WpqQH6X WNobmljYWwgdGVzdGluZyB3 APTcyUFhCi9gsUZeHOB3JKA iqZfvutAIuI6kICEjBMj5EX NjHmXzHdgnonBEDMBkN1RfW MZsmbElqupuTRE7hN5pz2g1 CFrsLy5uONYtrpnew9toffN guNCaz9GyPPIqqmPoo9MgNK QnhePgnXHyKTVbidVcmm4sa oChMWCvMGOnM2TvjurmdMon hsC1UCYeQUYgtLCztHdlYBQ tLTc2ACtjqfDno7YlItWlcl QhqLXponFnRO8lVOJrgQKib vGvWTD6WDJgFYSNWkJjYCFy s0EeWQ8cXSYpdCmpOGWkdN4 ut9GgWPJso73rLOWkGHIHKL EgaGFzIGRldGVybWluZWQgd RacrYVfcIMmGYQdDWKnBN7s RWLcjdVpsFXdr8MadCKktaO im8TcvpFeAPCuSBN8SyNNsY GyhMJweBKoorY2l6TvWZXzh zZhgKmbhUFpuKUoyIGhq6Ge kz2uVBPft9vqxWtnPT8lqTM iZSByZWdhcmRlZCBhcyBpbn Hth5MgI6M2fU4hUAqax8ScZ o6vTXLzx3IwgrKaFvCRjFwz WWpvLa8xWCJlfkpjhGDuG7L ydGlmaWVkIHVuZGVyIHRoZS AYfHvtvRIqlEBPNKAwgfA8f 9D1UKrkaXOwwjCmVK86XSOr ER3iaQNssOWqv4YwVMv3TLA rO5zHMB41KUatZTMbbHQnqE vraZCvBDYjDZDlzaLtke0dm EuctYEmb80yqTA6wGU5COCy fB6iM4HsKJfwZr2nXOXtzvs fuCAlgNglCc3qaYYuuO== Gross assessment was [facility] performed at ([facility], code = 2777) Department of Pathology, [address] [place] [address], Technical component [facility] was performed at ([facility], code = 2778) Department of Pathology, [address] [place] [phone], Professional component [facility] was performed at ([facility], code = 2779) Department of Pathology, [address] [place], [place] [id number], [facility] [id number] 15:29:08 Test Item Value Reference Range Interpretation Comments Case Report (test code Surgical Pathology = 104) Report Case: [id number] Authorizing Provider: Logan Russo MD Collected: 06/18/2021 11:41 AM Ordering Location: [facility] Received: 06/19/2021 03:44 PM PERIOPERATIVE SERVICES Pathologist: Tom Paige MD Specimen: Mass, MITRAL VALVE MASS- for MICROBIOLOGY then pls send to Pathology DIAGNOSIS (test code = [id number] 3220) uZzEwMzNcZnRuYmpcdWMxIH tccnRmMVxlcGljOTYwMVxhb nChQLJnsANbW3IwrifwRLky OJ2mOV0kjGgwvYQopXSrQZI yEeNrf9sup000iEZnh9bkNM YYzyzjoEu1dAoeA12tg2R5H lmrL65mdXMnZTK3WOFaHKNt wESmGGFfMOI0ZAFsvVRnH2w kZBVzRQ3wqslhERdgEDszHG IadTZ7JQJwxGOqO7TwYEDkE SjeITFnnzr5PdCaKx1rxERj eTcyMFxwYXJkXHBsYWluXGZ kGbJjMQ1wDRJOBrExYK3LWG JBTCBWQUxWRSwgREVCUklER Q0XRbPsOL8DOVVLIHBJJpey cGFyIEZJQlJJTiwgQUNVVEU hMX8GIICAMKYYU5ZTSKDBL8 CEA5DWDCEOMmCmZ5JVG1wYQ JTWMYeHCf4xaZYkUOTHRUGI ZRjwQ6KOBO2GWYLDVzCRLeU DQ7ELI6ELGQ1VY1FPLQVWCy JKHT2AJX5UIXPORDOWRpXTC RDYAbZOH1zVB2hoFQukJAPw G97CEpZBSODDC05bH8sXEKP AYQQEF0VOW5nYL4eDPJscW5 BMYXmDFrJCFxSWDSVSQT5SM sHFJG6fANAcep10PPK6TrWv p4G1GVU1GOWdNSQqq5uhGSL mbGFuZzEwMzNcZnRuYmpcdW BcLPWqCrSmf7mei891pQQkp 9sfQXDfPeJ0fAGqRWJugTAw H238RQHvJYtvb7hms8YzLFA frLPce6W6WPZUsnqgtNy5iM isJ75xi5U1YpftU0doCSFcB QBtQ2DdXZ0tRMSxGor8NIG3 VJE6WKPdLNYgF4DrJX8sHRW niPXoDEk9b9jxgJlzEKRfQY O1b0rlZZcuojImKG5smt7da Hl7w3xhzhUrIGZrUGKjmXPW VVKlX5RpcCynRe4kvLs8oWi yShorLBO6Jal3DI6bki24io v4pSabYSXtwwicWfR5GFlbV GElbztwYAw0ZUeoNTAdgNH2 BFYvgNYcE5IcRFFsUQ1ifwo 1LAM5YKijKQUvCoE6IHMgeM NvHCZaeAhwWVxjv045AHI0M dItNX2kD3Qhc5L0tH1mfQGk CUBlpJIsXkDqZOLkbh0mqJD tYDbvy3GxBDH1szD9jQRdoU RgTMXaHfZ0ARnmXM0oev90T NQyOPY3bg7ntZAhcMtjcnUa rGTnGNcsV2WdSDUuz500CDC vB7CcWVZbv0Z1wvYfSiZkCJ XbiUN1rjA0CUXtSY0hibsre 7kjMMlaNPmaXUIzlpT4bvQ6 IWBnrNSbA0MftV4tABIpFN4 zfqnyc2wbDEQ8CGeuSKPlXU G5CzXfEMWty0Qiosf4DwQrx 1HxxXQyDCtzH93vu227SRHu xoBpJ9lxtDQmtsfkdXGwbvn vUWvijlE0FZNjVXdbwawxJC FzEOksT6ogUlTdRHVroQedB Vpfv7LuYQPmGMIfPkLfdRIq RNUwEgs4FXUheGWyPYJjNcT oH5ujglfpNwTEIULlj9xpX3 jlwKQBgABvG1TyMPsnszWsN CsvYIncNnAtSLWmZJ21JJX1 KXNjlk00 CPT Code(s) (test code r5tbgRXsEJCzrTC6CwKjKJR = 3357) si8ubc5NwiVYzxBFyEWgitM FdvkVidm06iVH0sE24GF9uP NYqMrA8DVDrmwZ1Ixd2TQZe VYRgnRAnP344k2ekc6ebgvI lbYY6kHzvJFJytypfNkJ3WU apSONfbycuERm8JCrzRWIak JN7TXPtlASlR8TyBPSiBA0d rmr5RQM7MKslEEGvMpZ7HPO ooSAdLJPekLpdXWbce393EB Q5QrEwFVPuqtKpfGqfcO5eB cBvNLO4YJXlMTwkUTbwHQHS B4abDEQ0 CLINICAL HISTORY (test j9kclTLaAPJwhKF9KbDoHNV code = 3356) gf4snz9RitZHtqPVmXUattY BdrtVesx30pRI9cI84ZG3sP CBzFuG0JPVaulM1Eie9TYFs IIKcoRJdS155t7nue3tjibN gjPH0aIkcJSTkfnsrYgB9AZ gnVEKubboiCPi9LOogGDSml GM2WYNbfDAxC6TeJCSiUH3y dsx8YXN8IIpmAHStYnQ9ZRM rgORcTAKnqYplXIjhy711DR G6CxSpVGIidjXftZoonE2dI hBmTVJRgfAxM1PxKUo7tYTa cGFyfQ== SPECIMEN SOURCE (test t7ikjCIcREJpoVY4AuSfKZD code = 3377) by5cge5BjlMVkkJPiQUqwdU IctcNifr09hYN5cA05AJ1yM SApDxA5YKVwwiZ8Mrm4QVBm FJEdeQDeD066s3gtd0dfbfW ndSK9eXbhZEVkrcztTgO5PB rbNEFmiinbNCk5NZejRHGlx ZS7MKRkfWDuE8VkUIKrDW6x mbv9ZEC3AVltULVxHjR9NEZ hbINaTCUiaCecFUdns141JM T0QhBqESIwgqPhkWctzO4sQ nMyMCBNaXRyYWwgdmFsdmVc cGFyfQ== GROSS DESCRIPTION w9yqkQKrOJBvyQEcZtGqQJV (test code = 3366) tRFRbp8wpDHZbuWDyJyOdSl NcZnRuYmpcdWMxXGRlZmYwe 6uko099tAWkf1myAPXaQpL8 mNLaONRyiOJwW831UWXaCMz tr8urz5UuLNKwbORrd9N3FL ADrrllaEm4aFsaJ68uu8F5F mleT1krTSTqVMRjB5TsDK5m ZAXzRnm5PJP6SIQ7GUKtFEG gA9WdOJ3cHKZrqPNrJIp5c8 cmkPizPITiQAM3e6kxWDnhp pCaXY6vnp3vqTv9e3atffUk SJAsATSthOEMJJXyQ0UjsGv pYg0hnNp3yEctHzwoKZH0Cd z9BL5srl85png9sOqqIHAbd jgqDeS2EByvKVHobjrkVTz3 MFxtYXJnbDcyMFxtYXJncjc yMFxtYXJndDcyMFxtYXJnYj xiJXrdAPDnCJU4TIdqz365Z QV4XUrbz1vse9cgmWMfTxz6 WHNrKtPcNlrsVGdca0Ezf5q dGRPjsh7kHNZ2vMPbdIcgl2 F1sSEyOFNhnOLhdfDmKZKoT lC8CJqhJV6iqe61MGGlIDR7 ts3mwQHyzZcrheVwdDVyRKt fP0IfJRMix351TLWbD4NsKI Qob2V8ugOsVvMeEUVgjCM1j jC0EKJuKAr9mUNyjtI2lgNn jGOnA2knzS58PeRdyRLdL8N kiB29ZnRcbMNkC4XroR53Jj JflKUlS8SmmY50CrMzlZUsK QHtjCIbMg3veFVtpHTol6Ug vCCuTTnfI35he087RFFsihA rC6einZWvmxtpjFDzvhpjXG heufM8ZBSjZSKcKEciPFXuR GZzMjBcbGFuZzEwMzNcaGlj vIcgSWgcVqAbVUDuAIjjB3y cZjBcZnMyMCBBLiAgUmVjZW d1YHCbjQ9uTn3puUBhvT7jx QVuGXdtJGZ1lCWbQPCsICXm HXRdKS16J0ZfsU0fv8AcTHM og37zNV4hRSBqqMVuVZneps FsdmUgbWFzcyIgaXMgYSAxL oWeJ41lqM7tzXIjT1AaLWN5 IDAuMyBjbSBpbiBkaWFtZXR mzfR1DL5fbPbikmM0iBExwC LaJGpeqYBeIMosYZD3Tt4ey SSpYMRitsT9l6LkFKvhPTBe l5BpnIMoFYXcOguvUVXdkYN nONTvqlOcqNeirV2qTgMtGj MyNFxwbGFpblxmMVxmczIwX KddajdkQRDfGGumR9tmKtGy QZObzFneNUokp4WxLJNvWZL aBkGbSGWiTNUhz2woKU69UY xwbGFpblxmMFxmczIwXGxhb rqsZALsQJtkC6hsOnZwWDVa jQkfAEdtv1TuOWBaRMWuGdV ccGFyfQ== MICROSCOPIC c2oejMAsAZSuuVL2DxKmSHS DESCRIPTION (test code bh9qam4TpfDNpsIJeZHsysF = 3371) UgkdGmcg28zXU3lF20OY4eL YRmAiN5MBPlbtL8Psy9QIMb FEQepYQuK495n4blt7gjluJ dnQK7gPstBAPpsvhlJaZ1SK noVSNcnavwDCz7NPuwYCGzs UR4SXEbmETfW2QlJRYgKU4i pxn3SMV0QYnqQWVtPqB0RPQ ivLNpZPDhsChcREhkf986VU Q0NxRzSXImmfDbwUbaeB3dB tMzYHQPHLZvb4YvVLWgVLFl cn0= SPECIAL STUDIES (test f6sbjIOnZWIenIK8DtTyFSK code = 3378) xg7wfa8IxlBIjjPHdOZkzgM AvumZnuc21tQJ0iZ47JS1fQ FVyBnN5SBAbmuF6Ohe6SPJh YCUnwNGwI616KVLiCPCwcPb ebjt4xD54YVJqeP0uuUCfPI wysrWvHTycmcJlamZwWke0A IM9uWtbTSRjjbgsOfU4PWue PXMziupoVKd8EGfcVHPcbTX 3KWCdyRLtT7MpQKRjRH5bhw c1KPL9SDcxUPQhFxU2KPQte JEpUTEddRwmXBlmm787XMH3 OnEqEPRdxhOlnFxftI8tYaM cZnMyMlxjZjEgVGhlIGludG EgiKWlzIN9uA4hVQ1cFWSoh CXqI6CgHRXhwhHjaNOzDRE3 fJNsgLHzYM2tFVeaoEJqq3y vg9SgS5vooVywaAD5BN8qGZ OnUXSgPGirw7ZxfR2oRwdqJ TGbM9HnQLTIH7KCALFdLZQI Yq9UDuCRLdMyEtEEAd7oWRd NUywgQUZCXHBhclxwYXJkXG VoYENMy452tz3yQQVlvILcv nEAqOXntM6mKLvyZHgbQMaf pOPiAGbxr0srFSJwj8w0uZB mAZKyjuPlx4lbUGlifkGkZW BvlNWvjLNfSICrd18mUNtwj ZqtrAozJJDip2QdwYleq7Ed KuQaONcuz3XuS84msEIwuMG lsZroKCJfmpMhMNNma98px7 mgWICwCsC4yHOitXC3sSUkr HFzm6GtwNryPRNws3xfNVYr ej3edtgdkOSpj1OcbD4tepo gLQvdnONtobOuDNZzh2k6mF LxJARlXYAxMMatoPd5EEWdh 037sl1endA9mTHcWHJ8UDeg YWJsZSBhcmUgZXZhbHVhdGV kWOXjrcZdXGYeokVMqQ64nq 1taWF8m2BqEF0nq0GgnYT1Q WNobmljYWwgdGVzdGluZyB3 IVIpvSUhVd8wjBXnRDS0MFO ydLfsprURrH3mPGThMSd5CU QmDzXuEgemprKWHCKpU2IeH UAetsKocfwwBLZ6wD3kw2z2 ATgdSt7aHDKkxouln3zlgvY hlAEvx0JfSTQycvXte6VqER VitqMaoXGhUWRhqpXwnn9op uQpTGRsMTEcN6LknpaliWnl reC0KFHfMGEvcPPuhEyuATN xXXb3CDgqaqBjk5VoSoGney ZfoSImxjKuJQ5kGFUvfUWdz xTxWNT4GTJvQOUTTgGhYMWa f0TpRR2rZOAqcSzgZMCvyZ6 bp7WvZOWly13jPIZsPKOFZR EgaGFzIGRldGVybWluZWQgd PyxcIPliLTmXMMyTTMmQZ2a XTFqgjYqwRFot6FklELqasJ km5FavoPvHNPoARV0KbLIrB KcdQKtvEBxcfY8g6MbQMPco oTtvWguwYDkaKNysDTri9Ff pm8fWSHqh9rrzTirFD5wdTK iZSByZWdhcmRlZCBhcyBpbn Zso8FsC6G4mP5lHBcso1SwF j2cGKNwe7QgeyScOgMIvFzh HXqyAn6gMPGnnuicgMUbW4L ydGlmaWVkIHVuZGVyIHRoZS ZZeJsxqFKmhUYDHMBrxiA2z 3I0WRjaxKYwgtJeDR66EESr IB1peRAicJUxa9QuCWk1VTH dG8tOVW66WLmqANFtgODihH dlvOUdQVYeMADdvfJbhr1ev MtueRJam22ywMI7hCV7JEZr dQ3yC5TgOLsmWo8uKXEgaub igNBxjSbqPj6bjEHltF== Gross assessment was [facility] performed at ([facility], code = 2777) Department of Pathology, [address] [place] [address], Technical component [facility] was performed at ([facility], code = 2778) Department of Pathology, [address] [place], [place] [id number], Professional component [facility] was performed at ([facility], code = 2779) Department of Pathology, [address] [place] [address], [facility] [id number] 15:29:08 Test Item Value Reference Range Interpretation Comments Case Report (test code Surgical Pathology = 104) Report Case: [id number] Authorizing Provider: Logan Russo MD Collected: 06/18/2021 11:41 AM Ordering Location: [facility] Received: 06/19/2021 03:44 PM PERIOPERATIVE SERVICES Pathologist: Tom Paige MD Specimen: Mass, MITRAL VALVE MASS- for MICROBIOLOGY then pls send to Pathology DIAGNOSIS (test code = [id number] 3220) uZzEwMzNcZnRuYmpcdWMxIH tccnRmMVxlcGljOTYwMVxhb gNvBVYrnMDcT7QncsvpIQcc VE3vOC4owRehkWMsxMNbWPM aVtLzc1hqp068uKXaa6frTJ MStqjriQq5lZciZ24os6T9M ufkH38zuFIaZXZ9HPGbPBKp sUKyANTxWHX2IMOqbSDpM2d cRWDdXX1lwojpDHutBNkvZH NbgNF7MEZxhUCqQ1OeOOSnO OryGDIdzue5SfCiLk9ejEYw eTcyMFxwYXJkXHBsYWluXGZ mGvLoMM2gPFUKHpTdRO2RWI JBTCBWQUxWRSwgREVCUklER C6LVsYkJD7UZOGELXLLFgzc cGFyIEZJQlJJTiwgQUNVVEU tNF8RRMFNYHKUC3PCTJGKD0 NDE5WLVAUQSoYwR7GJE9zVB FTNJYvTXh8xuCIlAALHKVEU PLssN6FSJO5OHUHKOzYVVeZ SI6LKF1BALZ3JS5FYBSLDKb ZPWQ5CJS3KQPOALVMNXfFII JAFPeSKE3mLA5vrRWrdJPDz D85LQeFVWOCMC25pZ2wFYTH QDIYLI8GZL9cBC5tKSVfxH8 MIBTdKVuZPIaKFIMQVPN4VE eYEVP0fCFRtzm48HIC1XcUr g4A1HMC3FRNgDOWpi5iaZGA mbGFuZzEwMzNcZnRuYmpcdW MwQHGdTbYgx5hnk090lRKpb 4zjPVZbLuV2oZQvSALthVZn M037UIHtGUyyp9rkm7ZxPMI pmIRey4B9QQNLrhulkYc8vG brE78qi1Q5RfvgR4qtKANeU CQpK5BcXR4iEWHjLuc3SKC4 DFK9IYDpRLYnE6BeSU5wRJY ecNJnBKn0m4kvtFswZRChFQ Y6a7gsWTgkpiGeLS5coe9ku Ls4u2exmoNlDQCjMWNplVJI ZQQzG0RsmJadRw2sbJr6bLq iXkkcQRQ2Pqf0FI6ova81ei u4zJgjOCDckvxdJoG6AHlyO WCqelxhPZr8CMznIDFsdLI1 MAHtjADgG2DzPRKaPI1zcei 0TYV1ZVwwPYDeBsN9APGlxL ZzGJRnfOpbMUfiv499OBW6S qAuFB1pR9Ini9M4uX5sxFHf AAEhtSAdQoQiAWQyph2abJC yOWwfm3ZhKRQ9hyG9qWNobZ GrCPSgZvX5OQzxQZ5xim39I UHdRIG9oh0tjCArmMzorsXl sPNoKNinU5NpASCys127HOT sU6UuABHho7C1gkHkMyDiVY PkvZX5cgR4QEHiLD7jfhtgn 6qzVSzsZUgxHQEluuJ7hhX8 DQDkhTGfF9RuvD4cFFBrYJ2 eorcgw9zdEEH4BNybRHCgSF L0YoSmFUYuo9Ntyxf3RdWnz 8DzbOYzOZtzA81bm640QREt cwIlO0vmtTMtktdalUUtndj oIGkvknQ1MWLvISvpcxxfRQ XsWFbeG0hiEbTbYWEgfSkiR Bnol8BaWPMySUHpAnEtdFBg CPNpNrh7KDUhmWCwLXNrVcU xK4nlgpobAtLYCRMnn4krN0 gtoXORhGNvG6ZzMAkvxvRrR YquCUqqApTqNNXpTU89ZMW0 FTFkgr94 CPT Code(s) (test code y6ytkGHcENCykIN6LiHsBTV = 3357) lu5rxj9TblMBivDPzEYbrpC JuodIrzj54uTZ5zS26WA2vG IBpFwW6UVFdllI3Coc7QXUp ATOuqOLiQ239n8uzx7ckpuC emRT8bXpkDHMbsexnAwX5DE srIKKnoaezNKu6ZYxfEPUrc QF3BOJnmNYtL2NoVTFtLE3n ioq1KXM7HElcQYWfWjD1WQG wkFIeXJSmeWvzNFgny922YC L8IvPgTFXjyvRzxZqnrM3wG kSrTSS9LQZuBUybWChmBKJK L8gtGGK4 CLINICAL HISTORY (test v9kfaLLlFLHjlEW4SjSfZBK code = 3356) lg3bhc7XvxBZyvUDkSDffhD OvdxSxjk50hYY2xI55UM4aG RJzShL5SALndkJ0Vts3OVBy JZCmkDVdW488y0dob0tmyrP qaPA9kEjkGTKsylakTwL0BY hvERCntcikCFo4MLefYPPgk TZ7IRUjkAFrW3LxNYXyKF6o hpj4YFF2VRbyVLKpMbU6SJY wqCJwEXOaoZeqHOwkr609FN V3IjVpHFVvzvEaaDwohA4oB bSjPVTHiqWtB1FsCDi3hZTa cGFyfQ== SPECIMEN SOURCE (test a0wlwUHbTHQfkRY2UuDnBQF code = 3377) oz3pbr9JefSOyePBfGDvckR YnfpLfzh13sGS0mB64EG1mK XDnDwV9TEQhhpS6Hgj2FZQn VIOqsHJwZ045m9niq4azrbG adWG7hUvsUQMpobjgWcD7DR yjLFNxdydfAZx7LIghIIKpw VR3HPQqrAPfB1IhLLRdEP9w bof0SAN2AFzcGYKrXtX3GTY zzSXiIYIqzGhqOOgst986MZ S3GhWnZIArrxRhcNlwlO5bP nMyMCBNaXRyYWwgdmFsdmVc cGFyfQ== GROSS DESCRIPTION i1ennCFnXGMytSWnRoBrVCR (test code = 3366) bKXRur6orKEZhmISiKbWrTl NcZnRuYmpcdWMxXGRlZmYwe 6jol137gQDne7kzEWPaIhA9 xLSvBVRfnDFqF343MQZxIGc kj8qig8NmHGImmLFlf7M3XE GKasqdpOf0uBqtO91mv0T5W qxlK0pfSTMmMPObY4TuTT2d VNStOes9XMT3ECL5YJKhOIC cB1GqUU8dNURgqCDwIOm6h2 nboXfnQZIbZOD7w4gkWEzlt lHyVO1nqw3bsHa6g6pqneQs IRKiTPBriFRMGUEdA7QoxYh uUx5wwHq1dFgfWlwdXCS4Yh a5JH5tmw25wcf4hMrgWHKxm wkqHeN4VYowZCSfldbwZGo0 MFxtYXJnbDcyMFxtYXJncjc yMFxtYXJndDcyMFxtYXJnYj pwEAjvBDCoRMV2OClqv074Z RZ3JRovk3ibp1qrcRIpLae1 YRRgXfJaOowkZBjvz2Qqb7l rYXObwl5eEPZ7sWBpnNwxg5 W0lYYbELJneZFuheClXJDcE fS2GOqgPG6frq95GDWhCGT2 cm4mjLPzaIjnyqHcaTXmRWw mD9EcZZDbm090GFUmA1DsYP Wwv4I0quHpDwXlCZEkbFU3h jQ1BVWeCYp5mNZllsJ9roWb fPLhP3lrwX79ZvDutFVkB5J mtJ18TyLksZWwX2QanT38Hg OhmQKiQ6KeuP74LoTlfGYdH RFacCTbFk6nuUHxoIPdb8Gl lGPaHTdyX81fy181KJCqrwH uP7hevAIvslejnLTurgvxVQ kqbxS1CTZgUNSxXNvsNLVcL GZzMjBcbGFuZzEwMzNcaGlj kWswYJzyXiLlVDRpUMqxL3p cZjBcZnMyMCBBLiAgUmVjZW w4PDTczT6lDm7jkLBwuM8mq FKbXStfESK0uGJfSQJpHZPj IOHtOO32F7GvsN5wc2HcNKQ xa06jEF3uIEPfzGDtYSivor FsdmUgbWFzcyIgaXMgYSAxL bOsO63pzM5nyWVhP5QwVYN7 IDAuMyBjbSBpbiBkaWFtZXR efiK2QT8tkOewkcZ0mGMujU HqILsgwBPkKPqjNUX6Iv5iw MElVQWnuaZ2g1JuNFeuLYVi o2LshGZhEWPkGrbzKWBfmJR jQASizjIhtKbloF4vSmNeEs MyNFxwbGFpblxmMVxmczIwX JnjsksxQVImBPbsQ7xwUqJq TAYugZzvTCmud1ZzUBUeXVB pKbVrFTLvJSIva9jdWG85TQ xwbGFpblxmMFxmczIwXGxhb ttbPRDkIRalW7ngArLuWDAw sLkfUDmho3NfPFOoUELoPjP ccGFyfQ== MICROSCOPIC e0mbeOZaBPFgzPD3PfRnSTG DESCRIPTION (test code iy0vme5GslLImfFVePWxqiU = 3371) OijpCbxt70oIX2bA37BK6rS WAyDwD2QSNkmwZ8Ltr4XZXp QOGklAJwZ817v9wcl8xiepZ izXL8iHewFGItpohxSqM6KT qfWEKqmttyAMz7TRkxJXIhs LW7LJLylSIpW0ViBYSgFO3p qss4FGC4LDhmXOIlLqN5IFP lwFQcXIEzvTmnGRlay238UU W1PaXpBDYbxqNobMxejB0tK lLbKGEBUWKqc1FqYEKtMKAp cn0= SPECIAL STUDIES (test n9bjcMUdAEZmqOM5ClEbTTN code = 3376) re3fiv4VcwDGrbLThTPxmmT SctbNsjn76vKX8rL69EW1gC OKsPqN3YTNgjpW0Mka3AFEy XXJaqHRrS184WVQqTWRulVu mrvp2vA00QPJbzB7vdAKjYS tsqsNsETlrfeDarbAkYdx0C HC3qEkgUHZqblwoUeV0NOuh TMDyhwwgJZc6MAbxKQVfaOZ 0LAJanJJfK3XhXPPgXW7pfq a5TBW1RBjkZATdOfN7QDEwc YKeCYTxhQklSQrbg024UYJ9 OpZgOPTybiWvwXuaaP0bGvW cZnMyMlxjZjEgVGhlIGludG ItbRZxzCS5gH3cVC3tQOYwe YYhQ3MiCPKfszVgsGZvUUU2 iNXdqHJpNW0zLSmjnHRxg4o mc6PdJ7iwkAixoTY0NY1iCM JhJEJqDMchs6CmlN6cSvbiY NBqW4KyDZXGV1STZVYzEKLW Rp4JTrONLhWrQzFXVj2xWBz NUywgQUZCXHBhclxwYXJkXG NcERKPl163fg8cXSRdnBHmf wOHbBSnxI3fHRzbAOsfOFzw yAAkFCpug4eeDSUmh5u8iWX gSBAwalNlz5mhKGaauwToSD ComZHcyWWyBTCqc62sBCdtf AxbyLkfQJRgn2CpaQlmi4Ql SaBgCMbdo0BdX93hiNGbmOL pcQfrBOBcaiZjXUEnq06yl4 dpHCXqBoS8oEYqyNB8iYJym LBrn9CzbGqhORNiz7ggGWQu mo0qoshvmQJwq0RcwO5bnpn qSAlnwAQlatHxOOIwy4e5oC HaWBEfHNYeYDrnbXm5IFVju 844gv2jskA2fEQdKQW3DSeu YWJsZSBhcmUgZXZhbHVhdGV iTYSuqiMcBQLlxpHAxE03pu 9guRX0t3ElMP1ye6PzbBZ6Z WNobmljYWwgdGVzdGluZyB3 MOKoeJJmAm0xjTKuETF8OWN nqDwglaPVvZ4lNYHwHMl1YJ BjUsIvQcmbxhVFRCDhI6UkV DEmidFxtixbCHO9sO5ag8i8 FGinOw6gMUNkbmuid5kyrgQ gtLUud2DoLLWbsiPzv6XzPH BakwAvqTYiDIXhboZsvv2jf xXxUWNzIPLoH0YfykdavSwa wzB9NBUsLCQhcQYqsDyrLRH lNMv8SJxepiVjq9PdErXpty AljBRsspZgEU8oYWZxyJYlp dOoNYH3BBXiHBEVAfQnTSDk r2BkXU3cRWKjlUwnIKYwsZ1 tk1LqIKFoz90mBHWsWFIEUG EgaGFzIGRldGVybWluZWQgd GcljPEduHWuVVNsPKRtPX2x VJSxzzHriHZxo4NtrDThwcV jz6BfmsYrKYSoMRH9AsUXtI AwcDNkeEWxdoY2s7NaABScl yUyhRkosFYtiPTrmGKua8Kp nb9tEESpk8qkrOxmWW6olTP iZSByZWdhcmRlZCBhcyBpbn Fzf0ElM4E4bI2lEXill5WaQ z5tQQTpp9AaifGpIoSJhFmb WWahDr1fOJChwnwyzBCpL8F ydGlmaWVkIHVuZGVyIHRoZS MVhBxuoUTdwRUWYKLqxcN7m 5J6FNputVAjkaAdQL69EWHu OL9inCXurYWyx8HjKVv8OAC rG9gUSY70ERmzBZPntVYckX dooVKwHJJnDPSvwiXvcd3nb IstlLXfr40tfAZ5uZS8GOAl eG4mM6LxEOmjTo9uWOWeogx hqWDgsRngFz4tmCCpkP== Gross assessment was [facility] performed at ([facility], code = 2777) Department of Pathology, [address] [place] [address], Technical component [facility] was performed at ([facility], code = 2778) Department of Pathology, [address] [place], [place] [id number], Professional component [facility] was performed at ([facility], code = 2779) Department of Pathology, [address] [place], [place] [address], [facility] [id number] 15:29:08 Test Item Value Reference Range Interpretation Comments Case Report (test code Surgical Pathology = 104) Report Case: [id number] Authorizing Provider: Logan Russo MD Collected: 06/18/2021 11:41 AM Ordering Location: [facility] Received: 06/19/2021 03:44 PM PERIOPERATIVE SERVICES Pathologist: Tom Paige MD Specimen: Mass, MITRAL VALVE MASS- for MICROBIOLOGY then pls send to Pathology DIAGNOSIS (test code = [id number] 3220) uZzEwMzNcZnRuYmpcdWMxIH tccnRmMVxlcGljOTYwMVxhb tHvZWXxmEJqO6SscaezJBne JV1dJA3adCdzvCWitDBeOWC tFfAci5xdb087bZFpb2peGL OKjihmyZh9bReqZ66ks5X5O lbcF92rpLDgLTQ7TRGdSFCs aGBaBHKqBFG6KQVnlDAdU0q uJYLvWN8vcjnvPIgcWPayDE JbkFX3YBRmgGWsA6XdTJDaF ZrqZNCfmxv4WnTjEw4pxRKt eTcyMFxwYXJkXHBsYWluXGZ bUkOaDE2dIYWCQuNgZK3CVA JBTCBWQUxWRSwgREVCUklER S9BPsNjMJ4HYIZLLWQTHggd cGFyIEZJQlJJTiwgQUNVVEU wIV1AXYJCHLKUK6PDFCRWC3 FQS3ITFOLCYrPqL2XNA1cBF WPNTGzLHg6vmFToROVZZRPE NDjjC9RITU1CMBMUUoVVVaU NT8JOH7DZOX7CY9TXCQWPYe CGUN8OPW6BCLFPRYQWWlRWL EUMQxJFV9iJZ4aqTTkgNZPa S83FVfOGPGROT44aP9kGIRX DIARLZ4NQI2tUZ7zHLItlI5 MXZQpGCvBJBoIJWWVSMJ5KX eSAEO3aWHXkbi99XHN9QvQy n9L3ECY9DJXlPTUcc8ppUWF mbGFuZzEwMzNcZnRuYmpcdW QhWEWxBzBqf5eep206jGGzc 6atTLGhJtF5hRCqOFOhoQGq K016PZApLUgbt9zum9HfMNQ clGFnp6A2HQYUnzewgLh2fY edQ23of0F7CzopB0kiINUzV JZqY4YtHW5kCKLpCct7YOX9 GSQ7WPVyJNApM4RpJA0uKZF doUUwGWv6m9wmkZcuSFRjHL W1a3ipTMngegNtTG6pqs1qv Em8a7hntbCbQRNxIVGyqWPC WJUvS3SsdVjoEg4hvXc9iKs oXcneIUQ2Wbv3ET7rwq22qy o4pIgkNRZamedbRnG6WCfpN WVftmnrYMh5NYgaFLYvsBV9 KZImwROfF9KrWIGfTH4cvuy 0WLX3KGoqGMArTeF8RTUvxS UiATBhhPuuJMhua732JXV1J dFtTW0cK9Qjw5R7iI5ffUEf PSTrgJIsMaLeNJEtij8ujSO qHXnht1AyRVA6ehC1aGVhsS TfQIIyItA4DGqgMH0nin60X NEaEQZ2ad9byUGvjRkjzdRl iTCrEOflN9KxTUNle143TQQ yT9XhDNKul4U3taOzOqOfPQ LniQZ1gvB4HEDnLY3ngxvoj 9gqFRmpLTkdSBKzpgY8wlP9 BMIacSWeJ4IfuA7zWBNfBP9 jdakut4ctUUV1NMfiWZPcSS N3UdLuUGZio6Pbmas7UyBfs 6YbeLJyJZlgW40we758LOQz qgYxZ0axyAIrqrwufDTspit pPGzciqY6MTGlZZhgrzwgEK EsQFvmI3ucWxDnALBrpQxxL Avgr2HfLJNnNJKaWiOsxSKd SKBkSoo6SMTfuSKcKMUvRvF xH7bhkowqImXIEWBgy1pxJ9 klmZAItYYsF6KlLSjzijLkL McwSIhoAxEpETKqHT23OJA0 GWYbej09 CPT Code(s) (test code o4hnzYZtBDItaJR3ZbTiGMP = 3357) cy1uhs0PxhKBwyCGiRTutuK FabeVmee35zQW9oT84BS5eO FIvVnQ0BSCfnrH1Efa6RFFm MIDrmIDgO831y4mnb1rosmF akCI1qQliERTlhpmjSlA7TB kzBAQuureeAJg2QYngLNCvl IH2WZGdyYOrN0FnBRZtIZ3m aww5ZSF9ZJjjLPIhSbF1ZFB zkZHfCEEkzGrbYDxis522CM Q0EhUcFIQoioDwbPlzdC6iI jDrGQJ0PRVhQSkmDKaoWJUY N4jiTOB4 CLINICAL HISTORY (test y2cbbVFeWGEhjDN7PyKbPDC code = 3356) cy5snn0IfoIMyiJZjNAbdvL BbmrEnyn94iVF6sD53GY0xT ZXwYmC7ONNtznC3Cwm8XWWe SADraKTjG413v2ghm9qncgY tzUI7mTxfMCXhmtibNmD2RP diQDSucynqSJd8QJviYOUnd HU7XJIahJKmQ3JxBBTzJJ9w xvj7QJW1JQgbDJXuCxD2GXA xeHCdWQDpiYmrKRgra580QR O6XrQbWSKstzDymJsrlX3bE aOzCHZFscNsS0XbVDh7sGCb cGFyfQ== SPECIMEN SOURCE (test m1fleQElVDYcmLE9AjObZBR code = 3377) bw5vxr2JogTBscYYzKXlddA KldnKhnz91vWZ6kE27XX6sV VXcXyL8IGWyypG3Lcf8UEGn PQOemCMkQ966g9zpu2ouqrS yuAM0zStmMQMkoeumNhN8CB auGNCywguwMRl0OMpmSFSpp RK9MGVnuMZqR7OlQZWzUA6a uci1ICD5SRyiUKVuGfT0OGA hxRRoNEZwvIthGGmdv990GG I9GsPeIYRfumEvsFjmlC9qS nMyMCBNaXRyYWwgdmFsdmVc cGFyfQ== GROSS DESCRIPTION g6msdGJqMGTjvSQzBzMdECK (test code = 3366) zOPQhf7kpXWAiwOOnYoUpTv NcZnRuYmpcdWMxXGRlZmYwe 7juq979rNAlq7xxDVOtGsQ6 dCZjZTSdgUVyV557UJTvLOv om9eax0FmXTPjwKPfu7C7FZ VMowhagSc8vVwjI06hu3G3Z wvrX4vyFKNqRHWbA7FpKR0t DROpCnj3MQI3REC2HSYnTNH yB0CqHK1iETBnvMYfMWk4u0 xikFnmVPZkYWY5k7gjRXhrv iEiOG3jgh7lfWa3y6oqxsXg CZSoNJSvpTMSOBQkT2FvrHv xEb9clGq4bArlHoeuKUQ9Jo j0VM6kwc29nem7uBwyTHIol ombLtF4JOdpNBRykvfiUBa3 MFxtYXJnbDcyMFxtYXJncjc yMFxtYXJndDcyMFxtYXJnYj zlPPmyWWHtUQY3RCxho965O NP3OTscu0ryz8ypqOJwBmj7 NNDdQpTuPuumXPoiw5Mjk3c xTOXims1wGAJ9wXJuwIlaf0 T3qTAyPCHjzTPfhtQxGWWnY eL2MQvqOR5rrm51XZHlSLE8 pz7vxKEbgUtlxlQpiRKpWJi qS6NrCACeo505IIXtK2FsTD Kev8X9avAdBcUpWFFeoYF0z bR9HAWhLJs5oWPrhzR5yaXv gSSuC0wsyA70YbKeqSRrK3W kmU86ZzWgdDBqE9DohI62Ec JxbLYyR8KhuB63VgJtgSGoQ EMhfXBlQv8rtLZmhPNfq3Kf lMFhMAgtM60qo726XLCiggC rS4lcwUXxtgbxmLDjdvgvZE hjfjH8DYPkEGGlWIrhGMZcS GZzMjBcbGFuZzEwMzNcaGlj aFphEGsbAuRfHRHbUTndU7m cZjBcZnMyMCBBLiAgUmVjZW c9RGDigY6jUz1qdOVbgB7ek JWbEUanXIJ9xNRmDXLdOSVe EMTxPZ40Q6KjtI3uh0AjZYG yp32gFZ1uDRYjiYUjNEzvyi FsdmUgbWFzcyIgaXMgYSAxL zYoJ03hrD7iaOVgI7EaYQY8 IDAuMyBjbSBpbiBkaWFtZXR pneI6AL7eoQznxnV3zMRzxK WxEMvvhZXjNDurSHJ4Ox6kf YCpYDSdhoG8w6VyWCrgJJRo k3VdcWHqBZHxQjfeKAAirUY gSLHrovNtkBemgP0jRhYaUj MyNFxwbGFpblxmMVxmczIwX DoyjlrbLLVqGEqkB8ydGnDx MLXoaRzuBRrra3OtADNfOHP pKlJcZMDqTZXyt9acYW65DL xwbGFpblxmMFxmczIwXGxhb jouQFNiMWfjQ7xbYlUlCQYq uCezZQfzm9YgBTKoBNSzHsU ccGFyfQ== MICROSCOPIC w5dodDRfCEQqcZJ8LcUaVDD DESCRIPTION (test code cx0oad9HbjFHpjJTjLGlsiQ = 3371) IqxqAdta89dLQ3uX14SV9mZ GNxKgW8NADcfmK2Gqc7OYKv MAUbtDWpP879g3mfe7ihwjE tgMK6yEwsZGMhuegaKjH2YG fuJHLeblmuSUy3KEdsINDaw HM6CTOxeYIbX8QkZUNtRD3x wri2SLN2RNwzTZEsTwF4UIR cmFFiEAWmhLbiBHugr496CR G1MlVfUTTpdzIttVoqkD4hN wChAQAILPYxe4BhHBKsVLGl cn0= SPECIAL STUDIES (test f1vehZZiWWHqmQL3MtDpYKB code = 3376) ad0emk6TwwAUnxUCcFXhvmU ZxhuLxji10tGH4cH95FD5kQ JXsZvS0ZMDzboB5Qlu5AQBg WGUroWExW003IQJyCUQalTh xrwk0xT44TWIkeO8uzPKhAL qfchLiRZnokeSzdyGvUmf2Y RP2gNypEMGczeejNzK5PYdb FBCnbstrOKp3OQdhDWMlaYG 5KXUljWOkF8AkUMDzDK0ovx k7ZLJ8EIqdEJVsTlK3QKWgp PEtHEGogQpxHJnfn891TJI1 XvKnTDTduiBdlSlqvO0xLwP cZnMyMlxjZjEgVGhlIGludG SwpKGtkAA7xY0mYI0kNEMrk IJiW5PcBVIhhcIqoGOlLHT9 uKSsuQSuIR0pHAsitGJqn9t zq1FiA3rmaKmjeVN3VE7sXF HuKKWtVBvgv8SyuT4aLkhiO IAwS0SyYYDEU0GGVRHxJJCR Nv1JZtQKQbPqEnOKCk7wQVe NUywgQUZCXHBhclxwYXJkXG VxADGHc773vc9jOTGwdDSrs fTMtEWutH1bTUklQPhuFXwa vJSaZOshv7scDEXmc0x7xFB dCXCtwpMpx4jwOCmhbtPnEU KzpVUxyAJhLFOdz70qPOhpi PxhzExfVWOny6WumTyaq9Ov YnSaYZopb8ZjC63ziEWpwJS lmMinNNYzzcLdAQZcs08vc8 uqAZSfXkX4xORnjFD5qTDas RNkf5UaeZvsAWIdn2jzWETo og4aubryvYMqq3QcdL3jtnv eQWmnjVGnbaNlQRJlp3w4hV PtTWBpCYZvSMxipLl8GYOvz 332rr0xuoJ6vREtUSZ8ENzh YWJsZSBhcmUgZXZhbHVhdGV zXFTaoeObDPJvfhDBaR12ij 4ylIR4s1CjBP3bw2YolZB1L WNobmljYWwgdGVzdGluZyB3 EXLrsABmTv4uwPVjLIU0SFF rbPjwpcNSmX8qMFUyXZq4TV DxTsScNqjnfmHFYLWfW4NiM CTsncHoqmhwFEO0tE8al9b7 HEqwYf6aQOVaxgmeh6yybwY dcORrw6SjTNPgbyHyy0MsWN WgoaGcoOLmFCEtlpHyts6ep nHtZSBoALYyU7LgxfdssCiv nrM2OIFiRDQlbYKxdMyeBBP jMBe8YAvnhsOfy8ZnIdCzye EzkUJnzdMkAV0aUXHnySXnr xNxKLF7QJQqDDREDeUnFINt x3IvZB1aNNJrzTqsGNJzmD9 dv6LfPYTrq97zZMOnLHGLOV EgaGFzIGRldGVybWluZWQgd IqpjDRrzZIsYNOrPBBbEK4f XTOitlHndZLyz6XphXPgkxT fs5OhfdQqNTVqXDM5XjBYdJ PniVEoiVLmojR8x2FaDXSia hWcbJxbrQXugCJhpYGdp8Xo bn3eFQFeq9kwzDrfPL2pxCA iZSByZWdhcmRlZCBhcyBpbn Lqy9GpO5M0vP5lHBmwc0OmS u1wPCUpn7OebkNaSvFXdMcg HSbzTw0fTRUvgdrdaQKkG2P ydGlmaWVkIHVuZGVyIHRoZS QSrXvbfDWeyFNVVAJslaK1t 1A7WCiobRKnfoQcPH53OSBc TC3gcCPuyFVuj8JiICf2GVR lQ6eFDR46HKykVMRauADnoS uatCCqOSHzAWHfcpAnpg9zg OsxmQJmf03jmBX2vXT7BMWd nM1hO6MzKNlbPo7mQTPcxws ckRLxuHvfGm2rnXMzdG== Gross assessment was [facility] performed at ([facility], code = 2777) Department of Pathology, [address] [place] [address], Technical component [facility] was performed at ([facility], code = 2778) Department of Pathology, [address] [place], [place] [id number], Professional component [facility] was performed at ([facility], code = 2779) Department of Pathology, [address] [place], [place] [address], [facility] [id number] 15:29:08 Test Item Value Reference Range Interpretation Comments Case Report (test code Surgical Pathology = 104) Report Case: [id number] Authorizing Provider: Logan Russo MD Collected: 06/18/2021 11:41 AM Ordering Location: [facility] Received: 06/19/2021 03:44 PM PERIOPERATIVE SERVICES Pathologist: Tom Paige MD Specimen: Mass, MITRAL VALVE MASS- for MICROBIOLOGY then pls send to Pathology DIAGNOSIS (test code = [id number] 3220) uZzEwMzNcZnRuYmpcdWMxIH tccnRmMVxlcGljOTYwMVxhb nUgBWNbpJDkK7OeddckAOmk QX0gCH5qtVwzhDJllBLfEDW jOkLka4nio869xNDzf2eiOV FGtsmpcEv7lLixT93kn6B5V slkT21ngJFbNRN0NXXoEDFk gVQgUBWzPEL9XJPtqNVaX4i xXOWlNI5atrtmVSpsCYhyML YunLF1QVZzpSAkF4WaWIBzJ HcqTCIipms3ZrDkCi0emENo eTcyMFxwYXJkXHBsYWluXGZ sWlBbTV2gCKOFGcLsRN7CMX JBTCBWQUxWRSwgREVCUklER M5KYwObAD2KBODADPUBCalg cGFyIEZJQlJJTiwgQUNVVEU uCA9RNCJXRSSDE7GLGPQXD1 VHE0WCDMSPThKeU4AYU0yAJ TYZKKxNSq7sqAHoRFWNDEOU GKgsZ0MZHX7NJBLRRqIZHsJ QX6YXP5JRTP7LY2XACSKQWa EMUT3ADB2XPZLGAGLXBzHXX TWZQcABO4oUC6ggBDayYHEg V31YJyWGHDERU98bC1iKHSW WRJWRK0FTU9wJG2yQQJamK6 EWTJzGQrIBAmYJHYKXSZ3SH fQNQT4kYBNiei26VME9MnGi t9W1EMW1BJBdWFJql1abHUO mbGFuZzEwMzNcZnRuYmpcdW PjQZJfReDgi8pnw883oCIlm 1upKEMdZtQ6mPFmFWGmlYLs G920ISXpXFdye7mha5HvIVV ybPPkc9K0LAWPudwceBl8iX idQ58qz6N0RjxlU8fjWCVtW VSeU9KaSU9rLQMrLhv1OJY0 SHI1ZZXrNAJaG9BiLZ0aXFZ kkBGmCKf5n9xwrFcwAORrRI F6x1gpLXtmiqQpQD5sqs0yg Tl9s9fvftCmWNSuDVIqhYNE ORCvI4XunYjhHu8obUs6rAu yVqhmNNG7Psn1BB9wkq54uv d9xDfyQNLyuvjfRsI5LThnD OVzlcidHEn4PCfbNDXlsJV7 CMOhmKLoK6PnDCWcDK3qdpn 6RMG3IXgqTRJbZpP9UXYodV RgDMYkrYqyBWkln101YWG7G xKhPZ6oE0Gkw0V2wQ0goLWf VBTwjRWsGsSyEKJflp0iyCC yFCdjy7LuLFB1ytU5pVMtsE VwACIeFwS7ILfdME0dre53U AVdZGR0py9enEXpdExfpfNc zZGgRFisR5AlYBWus213AAI wP6OmQROqp3M8iwQnOcZkYB KcqCB3qeJ1CEEiTA1zhejcf 8ucYIltPPleAZUefgQ7edF5 ODCmaJOjZ5SsrR0mODPwYI3 grtukr1jaRIV0TXmjIFHuGV D2IlVhJQBfz1Sptrj7NvGzf 6BbeYGhQJffL86ky361ALFp pjIfZ2hrqGMaefhkiLEeibe xMEguvqF7ORHgQJskzvtjKC PsDOetY8asIfCkAABuqKmnS Ibgs4NqMIOpBJRsGxOxaCAh RYKdNzw4OLGzxUHyDCYiYxM zH2jxvnziZbMKPHOan9rcX6 kqxIIWmZJxW7JsZZxkiyCpQ JirTDywCkHnHVQuCI31MBK1 ATAvwf02 CPT Code(s) (test code n0qyeRYfAQXciZO1OpAfIVT = 3357) hx5wwm4QrtJChxOZiGAehwT XqvoCyjk24dMC3dW84MC0mR LNiTjV3EZUmdxZ7Bxq6CRUz QMVzdUGiV577g1lsc8gxsnU qkFJ9mArsWDBilispBbM8JR feIKOtjzwyVUq8UAdvBZFfw ZN1TCOilDXkR0BiSZFpXE4h ohq6JMT6SZuaAYRjYiU1JUL roMMjNKYlpJhpEAtgd372PX Y3OiHbRRJpkyOtqHcqdW4vC oQcBKJ7MZJtOUwiRQjyQEUL U8grEXH1 CLINICAL HISTORY (test v6notAVdLOTufWN9XmBdTIG code = 3356) gg7kpu0XtaJSknCBzTNhkuX XhvfUbkj04yHQ6aK84JS4zR BEbDfS6SVYicbJ0Lgc9TWEz QDBksZBsR661s1vqa4hzqfQ trOS2nDgaNZJpdsvsBbD1LX ybRNZasuuhXLd0ARkxKOOnf JK7STUrgJSeZ6IfUYEzDG3e xjp7GMW3WXdqOBXuMnL9GOK fmWWmSUKogSsdGRehn857NV T1KnUcMBVddoVkxAwywU7mO xKfSBDCvmEbB0VmNVf7fXXm cGFyfQ== SPECIMEN SOURCE (test y4pehGHdLHMplDS0MwFkOTY code = 3377) ir8cyf3SdzVGcpBSnPJdpcB YntaUrsd96hCM6pH63CB3eR XSwCmA4TRFihaZ9Obk4RJZb VPXftUSyL819y5ndk1oqxvZ ucOL7iUtjZDItrgdxJoR9FG emIHRodwrfQUs3NBldHGCmj AJ8GHKikIWkM9RkQTSpCP1z ami6PJZ0MFbhDYBsNkL9PCC hzXEiWQVmbDlpDErvs920QF L2BuQlEJEbphDgfIvgbA4aH nMyMCBNaXRyYWwgdmFsdmVc cGFyfQ== GROSS DESCRIPTION r3kmmZRcLIYneIRtYjHrFFR (test code = 3366) tOLIlx3onJSYmmMWbOzNfBv NcZnRuYmpcdWMxXGRlZmYwe 1cav527xXVay8zcVFHhTsS2 fMOsZERsgBMdW102KKIrXRe xz5wxb0HhSBTubMVhx7K1BM XVdygpaAi3zIjdD29ak2H3L hrtP7trMVAwVZXpE8EbLN4t ZAOmYvm5IRG6HIR9PXZuFQX eR7FaBI1dIMJgqLRaZBu2a3 efkNsqCJVxOGE8f2gfQEyjm dVpPJ5qec4imDz2u0qjwyHd RXItVXCtpVOIZTYxM1MjdXw xGv0hcRe2xErmHzxwOJI7Uv t1UI0nga96swv0cRmoRKWme qnhTxR8GKgxBMDmddfxBDz6 MFxtYXJnbDcyMFxtYXJncjc yMFxtYXJndDcyMFxtYXJnYj clBLrvWXCkYNY0XBpap830G EL1AZuzk7roc5vrpRVxOmv3 WHVxUzAbGtekOZbwb5Rvb6j sKRJibk7zQCZ4mKNafYyli0 D2xBLmYSYtrFVwcvAxUIVdV uO1XWyeWV7klb50TKXfQMS2 ds3rqTVwnOwvziCxrOPyDNr pH8UcQKJry143RQRrY3RaEU Jdj4A8ncPvVmKvWHPxuKT2w pF0UEZfYKy3tMOkjxN7foBf hMJcL5wzsC83LbKvnOYwD4W zyR43KjIeqDNnQ9VmcR30Wp LjkICiH4BfzE13TrZgpVGaZ HCwnJBpPw2yfPUcoKChc0Bc bWDiFDctC69rs961WHQkubU wS7pyfITdarfyjBXrolhaVN fkhwF3PJXqPZFiUXjcQHDbS GZzMjBcbGFuZzEwMzNcaGlj zGvdUDbdRgLqMGEhPOfoY7f cZjBcZnMyMCBBLiAgUmVjZW d4FZRenW5oRm6ngWZrlP7of KXvPRisTYU9kNKcJPEuBXNf IZGnVS74Y1JulJ3mz7FyHNR rw26xUW5dQRZkePMeBOumtk FsdmUgbWFzcyIgaXMgYSAxL xJyI92aeQ9elCCxG8HePGD8 IDAuMyBjbSBpbiBkaWFtZXR tbbP5FM2brOfjvjZ5oVCmhF NuBTgarNWcTTbaIFE0Ln9up WMcTUCpzgE5p6UkDJlkOLHo w3TtyGHdRSVrNgooJOSfxQR dKETxqkCdiIqszW8sLbNvJv MyNFxwbGFpblxmMVxmczIwX ZmcwlewRDOzXGsyV4dqHiHx GXFasUvtRPluf3YvQEBbXNG gGhHfKGSwWOLuc8saEQ01ID xwbGFpblxmMFxmczIwXGxhb vzrPNVoEPebX0caImPqGCHl fVmwQNhzc0IcEHMwKTFoLcH ccGFyfQ== MICROSCOPIC u1tosSJuPJHkaXW2ZvToAJF DESCRIPTION (test code pu3tid3WxhRIarWBxMLlhdM = 3371) TdkrSxqg40lNY7tJ87WL8vR UNxTdW4WHEzqxK5Mso0AVMb EOTvqGFaT787h2mmk5fzwzM adMB7cDyvPBErntwaWjX7GD nyZQJmcjerZGc7ISdbQIUvt SZ6ZXWxsVPdR7IwVKXvLR2e vbb0GWW4STpjSDSrLfO8UKY zaBZcVTAckCntHUlge340TH P0KcDiKZWjfzBnkPjvpJ5zX zAkFZJPXFQky9EfUXWfYIGb cn0= SPECIAL STUDIES (test o5kosQLaHTWaxHD1AcGkEQD code = 3376) rl4kcq5TmdWDubEPfQLagsB OosuFprq87cYR7tU83UF4jB SGoFyY6LVNnuqR6Iiq0PMYf GVCjhQTeN027GHVeQOYjtRg wxos6yO27OVVqsD4nwEGeKE aycpVeRJjhxfPfbtNiYmt3D GI6nHyzQPNzgvraCaP8YBxy JKEwmadnEQm7RZujTIIxxGP 7RXFqaMPiG4RaNKRxIV4hpv m7DIN2SYrwHAZoZnC3ATSkd OYpAFEizLrrLTvig046WEO8 WaZoSEOpqePmyRrxsW7vOqU cZnMyMlxjZjEgVGhlIGludG VjdBCpaZH0kV5rGU0bPFEek GUoV1RyNYWfwkNthOShHXY1 gVHsfTEjDL4bIIctwKBcr4r yp6XhF2igaTxjqEU5ZH9pAU KoLMMwZOxaf4EzyM1tTxqdR VPpU2QeYAZRQ8YTYIViEFQR Ud6XAdWNGdIiBbXDNb4oSNq NUywgQUZCXHBhclxwYXJkXG DyRODGd372oz5hLQBwlKGga oQUnSKdiB6fPDceNTuwNYxd mRPtIUmdg3ekRMLme9e2qYW oTLCvnfSkt8keMSwbepEsLL WygIDuoWAqNCJzk92zTAcob OincPtyVTEog6TrnQhsm2Zr PlUqTBuxx2RvT87kkDLttYZ qaDkgSOUnxoWyLRPzn22kf3 paNNMmDbW5dOTmrLK5oPMnt OXcr9PajUzqVHVeo7ntMAFv kq6oiyhxiHFxq5ZeeJ2vugj uFQnbgFHpyoNvDYKjq3v4sD AbSOJmLWTiHXmqxUz6FYDrl 428my5bhgS8tLZjDXZ8PLdm YWJsZSBhcmUgZXZhbHVhdGV hLTZfwnBlTTExawZDoH43aj 9kqKW3r0ZgUB1ei2IgaCI3O WNobmljYWwgdGVzdGluZyB3 YIKsjLPaEk3rqTEmHUZ8KDU cdFdaoeSDvT7sQKQwJJc7AB XwPqEgFbgoezERXXXmW4IzU DBtmiYeantgVMK0bR2lk6t4 MRnsQc4kYEBtnxlsw2aomrG unHRgn0CxPPUvyrNbc5SjRI XsleNglBTeQNAnayPasw9aw pXvQPJwBAFsW9FawnsbaOaf aaG2BXCmRUIhpZPkdFyrUHV gARm4RNfawpKbh4OvPwWalt PsfXFwpiYxOM5oQJRmrWTnu zPtYCU3YCRyZYNPLoGeAUIe z6ZfNK8rNEOovBptFWDunM2 cn6PcKXEmq68sLZEoKOJZJG EgaGFzIGRldGVybWluZWQgd JzedWFcfYPnOWBdOEZoLT8b TYQwjfQzuOJzz5LyzLNessH si9ViwgKcYHWlRSF8CeIGjD VxfJAcvZLxtzE2w7DwZBJes iIkwPxxrKGaoMGgsDZsl8Er mh3gUBMzl0dwtKbsJM4ijMN iZSByZWdhcmRlZCBhcyBpbn Ppy6NeN2Z8fV9gQSrvp4OuT z5gHJDcv2MbftVwIsVCfLhm AVbqFv5eSHAwnsfieAHkL1D ydGlmaWVkIHVuZGVyIHRoZS MPgTiflTPqoPEJZYZmxxS2t 7C4DCvonZHdxiViGP72ULMo WW0hdRRmkWZlu1YiUMk3DIS iY7tTWU88TYehSTIfgGSmiB sopFXgVYEyRBHdfjXfgs0yf HtcmNZhx09ccRT3kMB4NVPu bG4uE8VbOGmyWt8zZVHbizh vbVLsxKlrCu9stJFbpN== Gross assessment was [facility]. Leon's performed at ([facility], code = 2777) Department of Pathology, [address] [place] [address] 22886, Technical component [facility] ke's was performed at ([facility], code = 2778) Department of Pathology, [address] [place] [address] 10136, Professional component [facility]. Leon's was performed at ([facility], code = 2779) Department of Pathology, [address] [place] [address], [facility] [id number] 12:37:44 Test Item Value Reference Range Interpretation Comments POC-GLUCOSE METER 98 mg/dL 70-110 : TESTED A T [facility] 50 (BEAKER) (test code = [facility] Nola [facility], 1538) 95357: Bead Wrapper/Techni kelle ID = [id number] for Daco sta (contract), Yohan POCT-GLUCOSE [id number] 08:40:16 Test Item Value Reference Range Interpretation Comments POC-GLUCOSE METER 120 mg/dL 70-110 H : TESTED A T [facility] 6720 (BEAKER) (test code = [facility], 1538) 84030: Bead Wrapper/Techni kelle ID = [id number] for Eze (contract), Yohan BASIC METABOLIC [id number] 04:46:57 Test Item Value Reference Range Interpretation [...] S NOT APPLICABLE FOR DIALYSIS PATIEN TS. Bead Wrapper ID - HIEN MRAD, CHEST, 1 VIEW, NON [id number] 04:07:00Reason for exam:->post-opShould this be performed at the bedside?->Yes [facility] : 1955 Sex: FFINAL REPORT RAD, CHEST, 1 VIEW, NON DEPT INDICATION: post-op COMPARISON: Prior day's exam FINDINGS: Portable frontal view of the chest. IMPRESSION: Support Lines: Stable. Lungs and pleura: No interval consolidation or sizable effusion. No pneumothorax. Heart and mediastinum: Stable contours. Additional findings: None. Signed: Andrew Caryepwade Verified Date/Time: 06/24/2021 04:07:26 [id number] 03:54:16 Test Item Value Reference Range Interpretation Comments PHOSPHORUS (BEAKER) (test code = 4.3 mg/dL 2.3-4.7 604) Bead Wrapper ID - HIEN [id number] 03:54:15 Test Item Value Reference Range Interpretation Comments MAGNESIUM (BEAKER) (test code = 2.4 mg/dL 1.6-2.6 627) Bead Wrapper ID - HIEN [id number] 03:40:54 Test Item Value Reference Range Interpretation Comments PARTIAL THROMBOPLASTIN TIME 40.8 seconds 22.5-36.0 H (BEAKER) (test code = 760) PROTHROMBIN TIME/[id number] 03:39:49 Test Item Value Reference Range Interpretation Comments PROTIME (BEAKER) 13.1 seconds 11.9-14.2 (test code = 759) INR (BEAKER) (test 1.01 See_Comment [Automat ed message] code = 370) The system [employer] D[employer] generated this result transmitted ref erence range: [...] WBC 0-0 (test code = 413) POCT-GLUCOSE [id number] 21:07:58 Test Item Value Reference Range Interpretation Comments POC-GLUCOSE METER 143 mg/dL 70-110 H : TESTED A T [facility] 6720 (BEAKER) (test code = [facility], 1538) 04605: Bead Wrapper/Techni kelle ID = [id number] for Sheryl Bergeron POCT-GLUCOSE [id number] 16:23:05 Test Item Value Reference Range Interpretation Comments POC-GLUCOSE METER 126 mg/dL 70-110 H : TESTED A T [facility] 6720 (BEAKER) (test code = [facility], 1538) 57945: Bead Wrapper/Techni kelle ID = [id number] for OSMANY VOGEL BASIC METABOLIC [id number] 13:28:45 Test Item Value Reference Range Interpretation [...] S NOT APPLICABLE FOR DIALYSIS PATIEN TS. Bead Wrapper ID - HIEN MPOCT-GLUCOSE [id number] 11:56:58 Test Item Value Reference Range Interpretation Comments POC-GLUCOSE METER 122 mg/dL 70-110 H : [facility] ([place] (test code = [facility] [place], 1538) 33736: Bead Wrapper/Techni kelle ID = [id number] for OSMANY VOGEL 2D Echo W/Doppler(CW/PW/Color)2021-06-23 08:20:29Ejection FractionSLEH ECHO HEART[facility]2D Echo W/Doppler(CW/PW/Color)2021-06-23 08:20:29Ejection FractionSLEH ECHO HEARTLAB [facility]2D Echo W/Doppler(CW/PW/Color) 2021-06-23 08:20:29Ejection FractionSLEH ECHO HEARTLAB [facility]2D Echo W/Doppler(CW/PW/Color)2021-06-23 08:20:29Ejection FractionSLEH ECHO HEARTLAB [facility]2D Echo W/Doppler(CW/PW/Color)2021-06-23 08:20:29Ejection FractionSLEH ECHO HEARTLAB [facility]2D Echo W/Doppler(CW/PW/Color) 2021-06-23 08:20:29Ejection FractionSLEH ECHO HEARTLAB [facility]2D Echo W/Doppler(CW/PW/Color)2021-06-23 08:20:29Ejection FractionSLEH ECHO HEARTLAB [facility]2D Echo W/Doppler(CW/PW/Color)2021-06-23 08:20:29Ejection FractionSLEH ECHO HEARTLAB [facility]2D Echo W/Doppler(CW/PW/Color) 2021-06-23 08:20:29Ejection FractionSLEH ECHO HEARTLAB [facility]2D Echo W/Doppler(CW/PW/Color)2021-06-23 08:20:29Ejection FractionSLEH ECHO HEARTLAB [facility]2D Echo W/Doppler(CW/PW/Color)2021-06-23 08:20:29Ejection FractionSLEH ECHO HEARTLAB [facility]2D Echo W/Doppler(CW/PW/Color) 2021-06-23 08:20:29Ejection FractionSLEH ECHO HEARTLAB [facility]2D Echo W/Doppler(CW/PW/Color)2021-06-23 08:20:29Ejection FractionSLEH ECHO HEARTLAB [facility]2D Echo W/Doppler(CW/PW/Color)2021-06-23 08:20:29Ejection FractionSLE [facility]CHO [facility] [id number] 07:43:14 Test Item Value Reference Range Interpretation Comments POC-GLUCOSE METER 111 mg/dL 70-110 H : TESTED A T [facility] 6720 ([place]) (test code = [place], 1538) 31537: Bead Wrapper/Techni kelle ID = [id number] for BE Skyn IcelandBE, OSMANY BASIC METABOLIC [id number] 05:48:55 Test Item Value Reference Range Interpretation [...] S NOT APPLICABLE FOR DIALYSIS PATIEN TS. Bead Wrapper ID - HIEN [id number] 05:28:52 Test Item Value Reference Range Interpretation Comments PHOSPHORUS (BEAKER) (test code = 3.7 mg/dL 2.3-4.7 604) Bead Wrapper ID - HIEN [id number] 05:28:51 Test Item Value Reference Range Interpretation Comments MAGNESIUM (BEAKER) (test code = 2.2 mg/dL 1.6-2.6 627) Bead Wrapper ID - HIEN MRAD, CHEST, 1 VIEW, NON [id number] 05:08:00Reason for exam:->post-opShould this be performed at the bedside?->Yes [facility] LINDSAY : 1955 Sex: FFINAL REPORT RAD, CHEST, 1 VIEW, NON DEPT INDICATION: post-op COMPARISON: Prior day's exam FINDINGS: Portable frontal view of the chest. IMPRESSION: Support Lines: Stable. Lungs and pleura: There is improved aeration of both lungs. No new airspace consolidation. No pneumothorax. Heart and mediastinum: Stable contours. Additional findings: None. Signed: Andrew Caryepwade Verified Date/Time: 06/23/2021 05:08:22 [id number] 03:01:03 Test Item Value Reference Range Interpretation Comments PARTIAL THROMBOPLASTIN TIME 35.7 seconds 22.5-36.0 (BEAKER) (test code = 760) PROTHROMBIN TIME/[id number] 03:00:01 Test Item Value Reference Range Interpretation Comments PROTIME (BEAKER) 13.3 seconds 11.9-14.2 (test code = 759) INR (BEAKER) (test 1.03 See_Comment [Automat ed message] code = 370) The system [employer] D[employer] generated this result transmitted ref erence range: [...] WBC 0-0 (test code = 413) POCT-GLUCOSE [id number] 22:23:22 Test Item Value Reference Range Interpretation Comments POC-GLUCOSE METER 146 mg/dL 70-110 H : TESTED A T [facility] 6720 (BEAKER) (test code = [facility], 1538) 60780: Bead Wrapper/Techni kelle ID = [id number] for DC MS, SENORA POCT-GLUCOSE [id number] 18:28:19 Test Item Value Reference Range Interpretation Comments POC-GLUCOSE METER 101 mg/dL 70-110 : TESTED A T [facility] 6720 (BEAKER) (test code = [facility], 1538) 53286: Bead Wrapper/Techni kelle ID = [id number] for Tacos rene (contract), Amb er BASIC METABOLIC [id number] 14:57:30 Test Item Value Reference Range Interpretation [...] S NOT APPLICABLE FOR DIALYSIS PATIEN TS. Bead Wrapper ID - AAHAMIDPOCT-GLUCOSE [id number] 12:37:53 Test Item Value Reference Range Interpretation Comments POC-GLUCOSE METER 69 mg/dL 70-110 L : TESTED A T [facility] 6720 (AKER) (test code = [facility] [place] [place], 1538) 91729: Bead Wrapper/Techni kelle ID = [id number] for Frances y (contract), Amb er Oxygen saturation, [id number] 10:49:59 Test Item Value Reference Range Interpretation Comments O2 Saturation (Measured) (test code = 79.8 % 86286-4) [facility], [id number] 10:49:59 Test Item Value Reference Range Interpretation Comments O2 Saturation (Measured) (test code = 79.8 % 43579-4) [facility], [id number] 10:49:59 Test Item Value Reference Range Interpretation Comments O2 Saturation (Measured) (test code = 79.8 % 13099-1) [facility], [id number] 10:49:59 Test Item Value Reference Range Interpretation Comments O2 Saturation (Measured) (test code = 79.8 % 27444-3) [facility], [id number] 10:49:59 Test Item Value Reference Range Interpretation Comments O2 Saturation (Measured) (test code = 79.8 % 41688-1) [facility], [id number] 10:49:59 Test Item Value Reference Range Interpretation Comments O2 Saturation (Measured) (test code = 79.8 % 59931-9) [facility], [id number] 10:49:59 Test Item Value Reference Range Interpretation Comments O2 Saturation (Measured) (test code = 79.8 % 52533-2) [facility], [id number] 10:49:59 Test Item Value Reference Range Interpretation Comments O2 Saturation (Measured) (test code = 79.8 % 17875-5) [facility], [id number] 10:49:59 Test Item Value Reference Range Interpretation Comments O2 Saturation (Measured) (test code = 79.8 % 86014-8) [facility], [id number] 10:49:59 Test Item Value Reference Range Interpretation Comments O2 Saturation (Measured) (test code = 79.8 % 41919-0) [facility], [id number] 10:49:59 Test Item Value Reference Range Interpretation Comments O2 Saturation (Measured) (test code = 79.8 % 98366-6) [facility], [id number] 10:49:59 Test Item Value Reference Range Interpretation Comments O2 Saturation (Measured) (test code = 79.8 % 71815-2) [facility], [id number] 10:49:59 Test Item Value Reference Range Interpretation Comments O2 Saturation (Measured) (test code = 79.8 % 62608-4) [facility], [id number] 10:49:59 Test Item Value Reference Range Interpretation Comments O2 Saturation (Measured) (test code = 79.8 % 91290-7) [facility] HospitalOXYGEN SATURATION, [id number] 10:49:59 Test Item Value Reference Range Interpretation Comments O2 SATURATION (MEASURED) (BEAKER) 79.8 % (test code = 1455) BASIC METABOLIC [id number] 07:15:45 Test Item Value Reference Range Interpretation [...] S NOT APPLICABLE FOR DIALYSIS PATIEN TS. Bead Wrapper ID - DBRAD, CHEST, 1 VIEW, NON [id number] 03:19:00Reason for exam:->post-opShould this be performed at the bedside?->Yes [facility] 1955 Sex: FFINAL REPORT CLINICAL INDICATION: post-op Comparison: 06/21/2021 The cardiomediastinal contours are stable. The lung volumes remain low. Central pulmonary vascular congestion and bilateral parenchymal opacities are unchanged. There is no pneumothorax. Support lines are stable. Signed:Braxton Quintero MDReport Verified Date/Time: 06/22/2021 03:19:08 BASIC METABOLIC [id number] 02:00:09 Test Item Value Reference Range Interpretation [...] S NOT APPLICABLE FOR DIALYSIS PATIEN TS. Bead Wrapper ID - [id number] 01:57:06 Test Item Value Reference Range Interpretation Comments MAGNESIUM (BEAKER) 2.5 mg/dL 1.6-2.6 Specimen slightly (test code = 627) hemolyzed Bead Wrapper ID - [id number] 01:57:06 Test Item Value Reference Range Interpretation Comments PHOSPHORUS (BEAKER) 5.0 mg/dL 2.3-4.7 H Specimen slightly (test code = 604) hemolyzed Bead Wrapper ID - [id number] 01:54:46 Test Item Value Reference Range Interpretation Comments PARTIAL THROMBOPLASTIN TIME 37.8 seconds 22.5-36.0 H (BEAKER) (test code = 760) PROTHROMBIN TIME/[id number] 01:53:47 Test Item Value Reference Range Interpretation Comments PROTIME (BEAKER) 16.4 seconds 11.9-14.2 H (test code = 759) INR (BEAKER) (test 1.34 See_Comment [Automat ed message] code = 370) The system [employer] D[employer] generated this result transmitted ref erence range: [...] WBC 0-0 (test code = 413) POCT-GLUCOSE [id number] 21:22:08 Test Item Value Reference Range Interpretation Comments POC-GLUCOSE METER 73 mg/dL 70-110 : TESTED A T [facility] 6720 (BEAKER) (test code = [facility], 1538) 14637: Bead Wrapper/Techni kelle ID = [id number] for Rodríguez Rojas POCT-GLUCOSE [id number] 19:10:01 Test Item Value Reference Range Interpretation Comments POC-GLUCOSE METER 83 mg/dL 70-110 : TESTED A T [facility] 6720 (BEAKER) (test code = [facility], 1538) 79136: Bead Wrapper/Techni kelle ID = [id number] for HATTIE SALAZAR BASIC METABOLIC [id number] 14:08:36 Test Item Value Reference Range Interpretation [...] S NOT APPLICABLE FOR DIALYSIS PATIEN TS. Bead Wrapper ID - DBPOCT-GLUCOSE [id number] 13:42:11 Test Item Value Reference Range Interpretation Comments POC-GLUCOSE METER 72 mg/dL 70-110 : TESTED A T [facility] 6720 (BEAKER) (test code = [facility] [place], 1538) 07331: Bead Wrapper/Techni kelle ID = [id number] for Sun(contract ) [facility]att Surgically obtained culture + gram [id number] 11:46:53 Test Item Value Reference Range Interpretation Comments Result (test code = 6463-4) No growth Gram Stain Result (test No organisms seen code = 1123) [facility] [id number] 11:46:53 Test Item Value Reference Range Interpretation Comments Result (test code = 6463-4) No growth Gram Stain Result (test No organisms seen code = 1123) [facility] + gram [id number] 11:46:53 Test Item Value Reference Range Interpretation Comments Result (test code = 6463-4) No growth Gram Stain Result (test No organisms seen code = 1123) [facility] + gram [id number] 11:46:53 Test Item Value Reference Range Interpretation Comments Result (test code = 6463-4) No growth Gram Stain Result (test No organisms seen code = 1123) [facility] + gram [id number] 11:46:53 Test Item Value Reference Range Interpretation Comments Result (test code = 6463-4) No growth Gram Stain Result (test No organisms seen code = 1123) [facility] + gram [id number] 11:46:53 Test Item Value Reference Range Interpretation Comments Result (test code = 6463-4) No growth Gram Stain Result (test No organisms seen code = 1123) [facility] + gram [id number] 11:46:53 Test Item Value Reference Range Interpretation Comments Result (test code = 6463-4) No growth Gram Stain Result (test No organisms seen code = 1123) [facility] + gram [id number] 11:46:53 Test Item Value Reference Range Interpretation Comments Result (test code = 6463-4) No growth Gram Stain Result (test No organisms seen code = 1123) [facility] + gram [id number] 11:46:53 Test Item Value Reference Range Interpretation Comments Result (test code = 6463-4) No growth Gram Stain Result (test No organisms seen code = 1123) [facility] + gram [id number] 11:46:53 Test Item Value Reference Range Interpretation Comments Result (test code = 6463-4) No growth Gram Stain Result (test No organisms seen code = 1123) [facility] + gram [id number] 11:46:53 Test Item Value Reference Range Interpretation Comments Result (test code = 6463-4) No growth Gram Stain Result (test No organisms seen code = 1123) [facility] + gram [id number] 11:46:53 Test Item Value Reference Range Interpretation Comments Result (test code = 6463-4) No growth Gram Stain Result (test No organisms seen code = 1123) [facility] + gram [id number] 11:46:53 Test Item Value Reference Range Interpretation Comments Result (test code = 6463-4) No growth Gram Stain Result (test No organisms seen code = 1123) [facility] + gram [id number] 11:46:53 Test Item Value Reference Range Interpretation Comments Result (test code = 6463-4) No growth Gram Stain Result (test No organisms seen code = 1123) [facility] + GRAM [id number] 11:46:53 Test Item Value Reference Range Interpretation Comments CULTURE (BEAKER) (test code No growth = 1095) GRAM STAIN RESULT (BEAKER) 1+ WBCs (test code = 1123) GRAM STAIN RESULT (BEAKER) No organisms seen (test code = 61565) RAD, CHEST, 1 VIEW, NON [id number] 06:05:00Reason for exam:->post-opShould this be performed at the bedside?->Yes [facility] : 1955 Sex: FFINAL REPORT RAD, CHEST, 1 VIEW, NON DEPT INDICATION: post-op COMPARISON: Prior day's exam FINDINGS: Portable frontal view of the chest. IMPRESSION: Support Lines: The pulmonary arterial catheter has been removed. Otherwise, stable. Lungs and pleura: Unchanged bilateral perihilar hazy lung opacities compatible with edema. No pneumothorax. Heart and mediastinum: Stable contours. Additional findings: None. Signed: Andrew Carywade Verified Date/Time: 06/21/2021 06:05:24 BASIC METABOLIC [id number] 03:54:19 Test Item Value Reference Range Interpretation [...] S NOT APPLICABLE FOR DIALYSIS PATIEN TS. Bead Wrapper ID - [id number] 03:49:06 Test Item Value Reference Range Interpretation Comments PHOSPHORUS (BEAKER) (test code = 4.5 mg/dL 2.3-4.7 604) Bead Wrapper ID - [id number] 03:49:05 Test Item Value Reference Range Interpretation Comments MAGNESIUM (BEAKER) (test code = 2.4 mg/dL 1.6-2.6 627) Bead Wrapper ID - DBCBC (HEMOGRAM ONLY)2021-06-21 03:45:10 Test [...] /100 WBC 0-0 (test code = 413) [id number] 03:45:00 Test Item Value Reference Range Interpretation Comments PARTIAL THROMBOPLASTIN TIME 35.5 seconds 22.5-36.0 (BEAKER) (test code = 760) PROTHROMBIN TIME/[id number] 03:44:22 Test Item Value Reference Range Interpretation Comments PROTIME (BEAKER) 14.1 seconds 11.9-14.2 (test code = 759) INR (BEAKER) (test 1.11 See_Comment [Automat ed message] code = 370) The system [employer] generated this result transmitted ref erence range: <=5.90. The reference range was not used to int erpret this result as normal/abnormal . RECOMMENDED COUMADIN/WARFARIN INR THERAPY RANGESSTANDARD DOSE: 2.0 - 3.0 Includes: PROPHYLAXIS for venous thrombosis, systemic embolization; TREATMENT for venous thrombosis and/or pulmonary embolus.HIGH RISK: Target INR is 2.5-3.5 for patients with mechanical heart valves.BASIC METABOLIC [id number] 18:24:15 Test Item Value Reference Range Interpretation [...] 358) GLUCOSE RANDOM 134 mg/dL 70-105 H (NABILAKER) (test code = 652) CALCIUM (BEAKER) 8.4 mg/dL 8.4-10.2 (test code = 697) EGFR (NABILAKER) (test 13 mL/min/1.73 ESTIMA LEVI GFR IS code = 1092) sq m NOT ACCURATE CREATININE CLEARANCE IN PREDICTING GLOMERULAR FILTRATION RATE . ESTIMATED GFR I S NOT APPLICABLE FOR DIALYSIS PATIEN TS. Bead Wrapper ID - PIAYA LPOCT-GLUCOSE [id number] 13:44:48 Test Item Value Reference Range Interpretation Comments POC-GLUCOSE METER 165 mg/dL 70-110 H : TESTED A T [facility] [facility] (test code = [place], 1538) [address]: Bead Wrapper/Techni kelle ID = [id number] for KOTA ARIAS SARS-CoV2/RT-PCR (Asymptomatic ONLY)2021-06-20 11:58:08 Test Item Value Reference Range Interpretation Comments SARS-COV2/RT-PCR Negative Not Detected, (test code = Negative, See 22966-7) external report for linked test SARS-COV-2 [facility] (test code = 29876-5) BRANDI (test code = Negative result for [...] of the Act. Fact Sheet for Healthcare Providers:https://www.Yorn/sites/default/f radha/product/documents/F act_Sheet_HC_Providers_L xsx_IYYJ-AkT-3.pdf Fact Sheet for Healthcare Patients:https://www.Passman/sites/default/fi les/product/documents/Fa ct_Sheet_Patients_Lyra_S ARS-CoV-2.pdf Performing Laboratory:[facility], [place] [id number] [place], [place] [address]ARS-CoV2/RT-PCR (Asymptomatic ONLY)2021-06-20 11:58:08 Test Item Value Reference Range Interpretation Comments SARS-COV2/RT-PCR Negative Not Detected, (test code = Negative, See 84236-3) external report for linked test SARS-COV-2 [facility] (test code = 75660-7) BRANDI (test code = Negative result for [...] of the Act. Fact Sheet for Healthcare Providers:https://www.Yorn/sites/default/f radha/product/documents/F act_Sheet_HC_Providers_L nxt_HNMK-QmE-9.pdf Fact Sheet for Healthcare Patients:https://www.Passman/sites/default/fi les/product/documents/Fa ct_Sheet_Patients_Lyra_S ARS-CoV-2.pdf Performing Laboratory:[place] [address] [address]OV[address]/RT-PCR ([facility])2021-06-20 11:58:08 Test Item Value Reference Range Interpretation Comments SARS-COV2/RT-PCR (test Negative Not Detected, Negative, code = 3822278) See external report for linked test SARS-COV-[address] [facility] FILIPE (test code = 8102822) Negative result for this test determines that [...] of the Act.Fact Sheet for Healthcare Prov iders:https://www.Liveset/sites/default/files/product/documents/Fact_Sheet_HC _Uxlywjyeo_Axmw_XMDL-WmQ-2.pdfFact Sheet for Healthcare Patients:https://www.Liveset/sites/default/files/product/docume nts/Iqpu_Tvyrs_Iiuypqcp_Aqhp_WKMH-WoL-0.pdfPerforming Laboratory:[facility], [place] [address]PAQN-ZAQPESH METER 2021-06-20 06:30:37 Test Item Value Reference Range Interpretation Comments POC-GLUCOSE METER 145 mg/dL 70-110 H : TESTED A T [facility] 6720 (BEAKER) (test code [facility], = 1538) [address]: Bead Wrapper/Techni kelle ID = [id number] for Tash wiseman (contract), [place] RAD, CHEST, 1 VIEW, NON [id number] 06:25:00Reason for exam:->post-opShould this be performed at the bedside?->Yes [facility] 1955 Sex: FFINAL REPORT RAD, CHEST, 1 VIEW, NON DEPT INDICATION: post-op COMPARISON: Prior day's exam FINDINGS: Portable frontal view of the chest. IMPRESSION: Support Lines: Interval extubation. A drainage catheter overlies the upper abdomen and lower hemidiaphragm in the center. Nicholson-Blayne tip overlies the pulmonary outflow tract. Pacer device and sternotomy wires are unchanged. Lungs and pleura: Bilateral effusions and adjacent compressive atelectasis are unchanged No significant pneumothorax. Heart and mediastinum: Normal contours. Additional findings: None. Signed: Bayron Cosme MDReport Verified Date/Time: 06/20/2021 06:25:51 [id number] 02:12:20 Test Item Value Reference Range Interpretation Comments PARTIAL THROMBOPLASTIN TIME 35.8 seconds 22.5-36.0 (BEAKER) (test code = 760) PROTHROMBIN TIME/TFR0140-12-14 02:11:37 Test Item Value Reference Range Interpretation Comments PROTIME (BEAKER) 15.4 seconds 11.9-14.2 H (test code = 759) INR (BEAKER) (test 1.24 See_Comment [Automat ed message] code = 370) The system [employer]aze DFM generated this result transmitted ref erence range: <=5.90. The reference range was not used to int erpret this result as normal/abnormal . RECOMMENDED COUMADIN/WARFARIN INR THERAPY RANGESSTANDARD DOSE: 2.0 - 3.0 Includes: PROPHYLAXIS for venous thrombosis, systemic embolization; TREATMENT for venous thrombosis and/or pulmonary embolus.HIGH RISK: Target INR is 2.5-3.5 for patients with mechanical heart valves.BASIC METABOLIC [id number] 02:08:36 Test Item Value Reference Range Interpretation [...] S NOT APPLICABLE FOR DIALYSIS PATIEN TS. Bead Wrapper ID - [id number] 01:57:56 Test Item Value Reference Range Interpretation Comments PHOSPHORUS (BEAKER) (test code = 4.1 mg/dL 2.3-4.7 604) Bead Wrapper ID - SVGCUGIEZUG5269-34-57 01:57:55 Test Item Value Reference Range Interpretation Comments MAGNESIUM (BEAKER) (test code = 2.2 mg/dL 1.6-2.6 627) Bead Wrapper ID - DBCBC (HEMOGRAM ONLY)2021-06-20 01:36:09 Test [...] 0-0 (test code = 413) Blood gas, hkjwvlpu2015-46-51 01:27:29 Test Item Value Reference Range Interpretation [...] 28 Lab Interpretation Abnormal (test code = 72623-9) [facility] uhmmturz7808-18-11 01:27:29 Test Item Value Reference Range Interpretation [...] 28 Lab Interpretation Abnormal (test code = 74461-5) [facility], rarkqpoe5946-73-47 01:27:29 Test Item Value Reference Range Interpretation [...] 28 Lab Interpretation Abnormal (test code = 55760-9) [facility], vydcvldc8542-12-38 01:27:29 Test Item Value Reference Range Interpretation [...] 28 Lab Interpretation Abnormal (test code = 87953-2) [facility], twckyjxz6625-77-77 01:27:29 Test Item Value Reference Range Interpretation [...] 28 Lab Interpretation Abnormal (test code = 64941-5) [facility], ogjsyoxp9982-64-98 01:27:29 Test Item Value Reference Range Interpretation [...] 28 Lab Interpretation Abnormal (test code = 23230-7) [facility], mfbbqxzp9607-89-07 01:27:29 Test Item Value Reference Range Interpretation [...] 28 Lab Interpretation Abnormal (test code = 43656-2) [facility], fkpvwhaz0748-35-27 01:27:29 Test Item Value Reference Range Interpretation [...] 28 Lab Interpretation Abnormal (test code = 01441-6) [facility], [id number] 01:27:29 Test Item Value Reference Range Interpretation [...] 28 Lab Interpretation Abnormal (test code = 85784-4) [facility], yjzwknus3864-42-73 01:27:29 Test Item Value Reference Range Interpretation [...] 28 Lab Interpretation Abnormal (test code = 14641-4) [facility] gas, rqjqpouz2457-90-63 01:27:29 Test Item Value Reference Range Interpretation [...] 28 Lab Interpretation Abnormal (test code = 88996-7) [facility], oybknzrj9369-29-73 01:27:29 Test Item Value Reference Range Interpretation Comments pH, Arterial (test code 7.41 7.35-7.45 = 2744-1) pCO2, Arterial (test 36 See_Comment [Autom ated code = 2018-11) message] The system which generated this result transmitted reference range : 35 - 45 mm Hg. The reference range was not used to interpret this result as normal/abnormal . pO2, Arterial (test 83 See_Comment [Automa leiv code = 2703-7) message] The system which [...] 28 Lab Interpretation Abnormal (test code = 04639-3) [facility] gas, rsqyyosc1106-71-38 01:27:29 Test Item Value Reference Range Interpretation [...] 28 Lab Interpretation Abnormal (test code = 27274-5) [facility], czcdsukz5127-17-56 01:27:29 Test Item Value Reference Range Interpretation [...] 28 Lab Interpretation Abnormal (test code = 06651-7) [facility] GAS, [id number] 01:27:29 Test Item Value Reference Range Interpretation [...] (BEAKER) (test code = 1819) 28.0 Calcium, Zbqjsbv7063-93-14 01:26:07 Test Item Value Reference Range Interpretation Comments Calcium, Ion (test code = 1993-06) 1.17 mmol/L 1.12-1.27 pH, Blood (test code = 87585-3) 7.39 [facility], Tjqycfq2611-95-55 01:26:07 Test Item Value Reference Range Interpretation Comments Calcium, Ion (test code = 1993-06) 1.17 mmol/L 1.12-1.27 pH, Blood (test code = 95641-6) 7.39 [facility], Uuiwxpc4756-35-10 01:26:07 Test Item Value Reference Range Interpretation Comments Calcium, Ion (test code = 1993-06) 1.17 mmol/L 1.12-1.27 pH, Blood (test code = 86789-8) 7.39 [facility], Bwyknaz7247-43-16 01:26:07 Test Item Value Reference Range Interpretation Comments Calcium, Ion (test code = 1993-06) 1.17 mmol/L 1.12-1.27 pH, Blood (test code = 82235-0) 7.39 [facility], Rwgfexr0553-84-27 01:26:07 Test Item Value Reference Range Interpretation Comments Calcium, Ion (test code = 1993-06) 1.17 mmol/L 1.12-1.27 pH, Blood (test code = 49456-3) 7.39 [facility], Cqphrzd0392-78-09 01:26:07 Test Item Value Reference Range Interpretation Comments Calcium, Ion (test code = 1993-06) 1.17 mmol/L 1.12-1.27 pH, Blood (test code = 42226-6) 7.39 [facility], Ewgexsc6452-90-20 01:26:07 Test Item Value Reference Range Interpretation Comments Calcium, Ion (test code = 1993-06) 1.17 mmol/L 1.12-1.27 pH, Blood (test code = 32656-5) 7.39 [facility], Upszzxg0319-14-66 01:26:07 Test Item Value Reference Range Interpretation Comments Calcium, Ion (test code = 1993-06) 1.17 mmol/L 1.12-1.27 pH, Blood (test code = 97989-1) 7.39 [facility], Dzqyrti9030-24-21 01:26:07 Test Item Value Reference Range Interpretation Comments Calcium, Ion (test code = 1993-06) 1.17 mmol/L 1.12-1.27 pH, Blood (test code = 90045-4) 7.39 [facility], [id number] 01:26:07 Test Item Value Reference Range Interpretation Comments Calcium, Ion (test code = 1993-06) 1.17 mmol/L 1.12-1.27 pH, Blood (test code = 71171-6) 7.39 [facility], Rdrrldk0582-90-91 01:26:07 Test Item Value Reference Range Interpretation Comments Calcium, Ion (test code = 1993-06) 1.17 mmol/L 1.12-1.27 pH, Blood (test code = 79197-0) 7.39 [facility], Fmqssgs2274-89-68 01:26:07 Test Item Value Reference Range Interpretation Comments Calcium, Ion (test code = 1993-06) 1.17 mmol/L 1.12-1.27 pH, Blood (test code = 59001-9) 7.39 [facility], Ikiribi3048-28-44 01:26:07 Test Item Value Reference Range Interpretation Comments Calcium, Ion (test code = 1993-06) 1.17 mmol/L 1.12-1.27 pH, Blood (test code = 68840-5) 7.39 [facility], [id number] 01:26:07 Test Item Value Reference Range Interpretation Comments Calcium, Ion (test code = 1993-06) 1.17 mmol/L 1.12-1.27 pH, Blood (test code = 13038-8) 7.39 [facility], [id number] 01:26:07 Test Item Value Reference Range Interpretation Comments CALCIUM IONIZED (BEAKER) (test 1.17 mmol/L 1.12-1.27 code = 698) PH, BLOOD (BEAKER) (test code = 7.39 1810) Prepare [id number] 23:55:00 Test Item Value Reference Range Interpretation Comments Unit ABO (test code = 5479193) A Pos UNIT NUMBER (test code = [id number] 934-0) Status (test code = 6690530) TX_TIMEINCHART Blood Bank Product (test code PLATELETS = 2263) PRODUCT CODE (test code = X0355O40 933-2) [facility] [id number] 23:55:00 Test Item Value Reference Range Interpretation Comments Unit ABO (test code = 8243705) A Pos UNIT NUMBER (test code = [id number] 934-0) Status (test code = 5429085) TX_TIMEINCHART Blood Bank Product (test code PLATELETS = 2263) PRODUCT CODE (test code = T2893G22 933-2) [facility] [id number] 23:55:00 Test Item Value Reference Range Interpretation Comments Unit ABO (test code = 7420242) A Pos UNIT NUMBER (test code = [id number] 934-0) Status (test code = 3179922) TX_TIMEINCHART Blood Bank Product (test code PLATELETS = 2263) PRODUCT CODE (test code = Q0607B67 933-2) [facility] [id number] 23:55:00 Test Item Value Reference Range Interpretation Comments Unit ABO (test code = 1809427) A Pos UNIT NUMBER (test code = [id number] 934-0) Status (test code = 0439289) TX_TIMEINCHART Blood Bank Product (test code PLATELETS = 2263) PRODUCT CODE (test code = X5869T72 933-2) [facility] [id number] 23:55:00 Test Item Value Reference Range Interpretation Comments Unit ABO (test code = 6163973) A Pos UNIT NUMBER (test code = [id number] 934-0) Status (test code = 2649705) TX_TIMEINCHART Blood Bank Product (test code PLATELETS = 2263) PRODUCT CODE (test code = A3469X89 933-2) [facility] [id number] 23:55:00 Test Item Value Reference Range Interpretation Comments Unit ABO (test code = 1203817) A Pos UNIT NUMBER (test code = [id number] 934-0) Status (test code = 4651001) TX_TIMEINCHART Blood Bank Product (test code PLATELETS = 2263) PRODUCT CODE (test code = L8935C81 933-2) [facility] [id number] 23:55:00 Test Item Value Reference Range Interpretation Comments Unit ABO (test code = 9665901) A Pos UNIT NUMBER (test code = I301586844175 934-0) Status (test code = 3281678) TX_TIMEINCHART Blood Bank Product (test code PLATELETS = 2263) PRODUCT CODE (test code = N7020M81 933-2) [facility] [id number] 23:55:00 Test Item Value Reference Range Interpretation Comments Unit ABO (test code = 6302604) A Pos UNIT NUMBER (test code = [id number] 934-0) Status (test code = 3872707) TX_TIMEINCHART Blood Bank Product (test code PLATELETS = 2263) PRODUCT CODE (test code = E6012Z12 933-2) [facility] [id number] 23:55:00 Test Item Value Reference Range Interpretation Comments Unit ABO (test code = 8134358) A Pos UNIT NUMBER (test code = X553710223629 934-0) Status (test code = 0624727) TX_TIMEINCHART Blood Bank Product (test code PLATELETS = 2263) PRODUCT CODE (test code = Y6156R07 933-2) [facility] [id number] 23:55:00 Test Item Value Reference Range Interpretation Comments Unit ABO (test code = 3319910) A Pos UNIT NUMBER (test code = I904195134352 934-0) Status (test code = 8205700) TX_TIMEINCHART Blood Bank Product (test code PLATELETS = 2263) PRODUCT CODE (test code = A7054C64 933-2) [facility] [id number] 23:55:00 Test Item Value Reference Range Interpretation Comments Unit ABO (test code = 5199837) A Pos UNIT NUMBER (test code = Q190478242764 934-0) Status (test code = 9386785) TX_TIMEINCHART Blood Bank Product (test code PLATELETS = 2263) PRODUCT CODE (test code = P0060F01 933-2) [facility] [id number] 23:55:00 Test Item Value Reference Range Interpretation Comments Unit ABO (test code = 1016414) A Pos UNIT NUMBER (test code = L451471445075 934-0) Status (test code = 3354674) TX_TIMEINCHART Blood Bank Product (test code PLATELETS = 2263) PRODUCT CODE (test code = F8796I53 933-2) [facility] [id number] 23:55:00 Test Item Value Reference Range Interpretation Comments Unit ABO (test code = 6293946) A Pos UNIT NUMBER (test code = [id number] 934-0) Status (test code = 2452858) TX_TIMEINCHART Blood Bank Product (test code PLATELETS = 2263) PRODUCT CODE (test code = M6563W79 933-2) [facility] [id number] 23:55:00 Test Item Value Reference Range Interpretation Comments Unit ABO (test code = 0937473) A Pos UNIT NUMBER (test code = V212714300843 934-0) Status (test code = 2349223) TX_TIMEINCHART Blood Bank Product (test code PLATELETS = 2263) PRODUCT CODE (test code = P2830L97 933-2) [facility] [id number] 23:54:00 Test Item Value Reference Range Interpretation Comments CROSSMATCH (test code = COMPATIBLE 2264) Unit ABO (test code = O Pos 0085681) UNIT NUMBER (test code = [id number] 934-0) Status (test code = RETURNED FROM ISSUE 3209095) Blood Bank Product (test RED BLOOD CELLS code = 2263) PRODUCT CODE (test code = Q3396P51 933-2) [facility] [id number] 23:54:00 Test Item Value Reference Range Interpretation Comments CROSSMATCH (test code = COMPATIBLE 2264) Unit ABO (test code = O Pos 8513797) UNIT NUMBER (test code = [id number] 934-0) Status (test code = RETURNED FROM ISSUE 15100613) Blood Bank Product (test RED BLOOD CELLS code = 2263) PRODUCT CODE (test code = J2252V17 933-2) [facility] [id number] 23:54:00 Test Item Value Reference Range Interpretation Comments CROSSMATCH (test code = COMPATIBLE 2264) Unit ABO (test code = O Pos 9343648) UNIT NUMBER (test code = P767395566048 934-0) Status (test code = RETURNED FROM ISSUE 15100613) Blood Bank Product (test RED BLOOD CELLS code = 2263) PRODUCT CODE (test code = Y0560V47 933-2) [facility] [id number] 23:54:00 Test Item Value Reference Range Interpretation Comments CROSSMATCH (test code = COMPATIBLE 2264) Unit ABO (test code = O Pos 4305599) UNIT NUMBER (test code = [id number] 934-0) Status (test code = RETURNED FROM ISSUE 15100613) Blood Bank Product (test RED BLOOD CELLS code = 2263) PRODUCT CODE (test code = O8647U61 933-2) [facility] [id number] 23:54:00 Test Item Value Reference Range Interpretation Comments CROSSMATCH (test code = COMPATIBLE 2264) Unit ABO (test code = O Pos 3961716) UNIT NUMBER (test code = B346824890515 934-0) Status (test code = RETURNED FROM ISSUE 15100613) Blood Bank Product (test RED BLOOD CELLS code = 2263) PRODUCT CODE (test code = K0516V60 933-2) [facility] [id number] 23:54:00 Test Item Value Reference Range Interpretation Comments CROSSMATCH (test code = COMPATIBLE 2264) Unit ABO (test code = O Pos 0902105) UNIT NUMBER (test code = [id number] 934-0) Status (test code = RETURNED FROM ISSUE 15100613) Blood Bank Product (test RED BLOOD CELLS code = 2263) PRODUCT CODE (test code = I4516Q04 933-2) [facility] [id number] 23:54:00 Test Item Value Reference Range Interpretation Comments CROSSMATCH (test code = COMPATIBLE 2264) Unit ABO (test code = O Pos 6022128) UNIT NUMBER (test code = P290996561770 934-0) Status (test code = RETURNED FROM ISSUE 15100613) Blood Bank Product (test RED BLOOD CELLS code = 2263) PRODUCT CODE (test code = M9548A40 933-2) [facility] [id number] 23:54:00 Test Item Value Reference Range Interpretation Comments CROSSMATCH (test code = COMPATIBLE 2264) Unit ABO (test code = O Pos 1193986) UNIT NUMBER (test code = [id number] 934-0) Status (test code = RETURNED FROM ISSUE 15100613) Blood Bank Product (test RED BLOOD CELLS code = 2263) PRODUCT CODE (test code = Z6408P22 933-2) [facility] [id number] 23:54:00 Test Item Value Reference Range Interpretation Comments CROSSMATCH (test code = COMPATIBLE 2264) Unit ABO (test code = O Pos 6880022) UNIT NUMBER (test code = S940783228778 934-0) Status (test code = RETURNED FROM ISSUE 15100613) Blood Bank Product (test RED BLOOD CELLS code = 2263) PRODUCT CODE (test code = R7291H57 933-2) [facility] [id number] 23:54:00 Test Item Value Reference Range Interpretation Comments CROSSMATCH (test code = COMPATIBLE 2264) Unit ABO (test code = O Pos 4912276) UNIT NUMBER (test code = V394012330086 934-0) Status (test code = RETURNED FROM ISSUE 15100613) Blood Bank Product (test RED BLOOD CELLS code = 2263) PRODUCT CODE (test code = U2212P46 933-2) [facility]2022-03-18 23:54:00 Test Item Value Reference Range Interpretation Comments CROSSMATCH (test code = COMPATIBLE 2264) Unit ABO (test code = O Pos 2066294) UNIT NUMBER (test code = [id number] 934-0) Status (test code = RETURNED FROM ISSUE 15100613) Blood Bank Product (test RED BLOOD CELLS code = 2263) PRODUCT CODE (test code = J4007K02 933-2) [facility] [id number] 23:54:00 Test Item Value Reference Range Interpretation Comments CROSSMATCH (test code = COMPATIBLE 2264) Unit ABO (test code = O Pos 7438558) UNIT NUMBER (test code = [id number] 934-0) Status (test code = RETURNED FROM ISSUE 15100613) Blood Bank Product (test RED BLOOD CELLS code = 2263) PRODUCT CODE (test code = G2589D24 933-2) [facility]2022-03-18 23:54:00 Test Item Value Reference Range Interpretation Comments CROSSMATCH (test code = COMPATIBLE 2264) Unit ABO (test code = O Pos 2250072) UNIT NUMBER (test code = [id number] 934-0) Status (test code = RETURNED FROM ISSUE 15100613) Blood Bank Product (test RED BLOOD CELLS code = 2263) PRODUCT CODE (test code = C0049X52 933-2) [facility] [id number] 23:54:00 Test Item Value Reference Range Interpretation Comments CROSSMATCH (test code = COMPATIBLE 2264) Unit ABO (test code = O Pos 6688411) UNIT NUMBER (test code = [id number] 934-0) Status (test code = RETURNED FROM ISSUE 15100613) Blood Bank Product (test RED BLOOD CELLS code = 2263) PRODUCT CODE (test code = E1614P12 933-2) [facility] [id number] 22:04:29 Test Item Value Reference Range Interpretation [...] S NOT APPLICABLE FOR DIALYSIS PATIEN TS. Bead Wrapper ID - [id number] 22:03:41 Test Item Value Reference Range Interpretation Comments PHOSPHORUS (BEAKER) (test code = 4.3 mg/dL 2.3-4.7 604) Bead Wrapper ID - [id number] 22:03:40 Test Item Value Reference Range Interpretation Comments MAGNESIUM (BEAKER) (test code = 2.2 mg/dL 1.6-2.6 627) Bead Wrapper ID - DBpH, lauosain8639-39-77 21:40:14 Test Item Value Reference Range Interpretation Comments pH, Arterial (test code = 2744-1) 7.37 7.35-7.45 Lab Interpretation (test code = Normal 61528-7) [facility], [id number] 21:40:14 Test Item Value Reference Range Interpretation Comments pH, Arterial (test code = 2744-1) 7.37 7.35-7.45 Lab Interpretation (test code = Normal 45256-9) [facility], [id number] 21:40:14 Test Item Value Reference Range Interpretation Comments pH, Arterial (test code = 2744-1) 7.37 7.35-7.45 Lab Interpretation (test code = Normal 05214-4) [facility], ilruxrdu0548-26-27 21:40:14 Test Item Value Reference Range Interpretation Comments pH, Arterial (test code = 2744-1) 7.37 7.35-7.45 Lab Interpretation (test code = Normal 63806-3) [facility] kuafxwpu1025-42-85 21:40:14 Test Item Value Reference Range Interpretation Comments pH, Arterial (test code = 2744-1) 7.37 7.35-7.45 Lab Interpretation (test code = Normal 05658-2) [facility]2022-03-18 21:40:14 Test Item Value Reference Range Interpretation Comments pH, Arterial (test code = 2744-1) 7.37 7.35-7.45 Lab Interpretation (test code = Normal 36260-6) [facility]2022-03-18 21:40:14 Test Item Value Reference Range Interpretation Comments pH, Arterial (test code = 2744-1) 7.37 7.35-7.45 Lab Interpretation (test code = Normal 16867-4) [facility]2022-03-18 21:40:14 Test Item Value Reference Range Interpretation Comments pH, Arterial (test code = 2744-1) 7.37 7.35-7.45 Lab Interpretation (test code = Normal 16776-6) [facility]2022-03-18 21:40:14 Test Item Value Reference Range Interpretation Comments pH, Arterial (test code = 2744-1) 7.37 7.35-7.45 Lab Interpretation (test code = Normal 95175-0) [facility]2022-03-18 21:40:14 Test Item Value Reference Range Interpretation Comments pH, Arterial (test code = 2744-1) 7.37 7.35-7.45 Lab Interpretation (test code = Normal 13580-6) [facility]2022-03-18 21:40:14 Test Item Value Reference Range Interpretation Comments pH, Arterial (test code = 2744-1) 7.37 7.35-7.45 Lab Interpretation (test code = Normal 00970-5) [facility]2022-03-18 21:40:14 Test Item Value Reference Range Interpretation Comments pH, Arterial (test code = 2744-1) 7.37 7.35-7.45 Lab Interpretation (test code = Normal 06430-4) [facility] xikqziux2806-83-02 21:40:14 Test Item Value Reference Range Interpretation Comments pH, Arterial (test code = 2744-1) 7.37 7.35-7.45 Lab Interpretation (test code = Normal 48626-5) [facility], hidayrph7477-63-58 21:40:14 Test Item Value Reference Range Interpretation Comments pH, Arterial (test code = 2744-1) 7.37 7.35-7.45 Lab Interpretation (test code = Normal 35711-5) [facility], [id number] 21:40:14 Test Item Value Reference Range Interpretation Comments PH ARTERIAL (BEAKER) (test code = 383) 7.37 7.35-7.45 POCT-GLUCOSE [id number] 18:07:04 Test Item Value Reference Range Interpretation Comments POC-GLUCOSE METER 208 mg/dL 70-110 H : TESTED A T [facility] 6720 (BEAKER) (test code = YUDY Vaca [facility], 1538) 19855: Bead Wrapper/Techni kelle ID = [id number] for Chilo Mccarty BLOOD GAS, [id number] 12:45:46 Test Item Value Reference Range Interpretation [...] (test code = 1819) 36.0 BLOOD GAS, [id number] 11:23:57 Test Item Value Reference Range Interpretation [...] FIO2 (BEAKER) (test code = 1819) 40.0 qgrri6722-81-31 09:37:11 Test Item Value Reference Range Interpretation Comments Scan Result (test code = See scanned report [id number]) BRANDI (test code = BRANDI) See scanned report [place] 92544022-03-18 09:37:11 Test Item Value Reference Range Interpretation Comments Scan Result (test code = See scanned report [id number]) BRANDI (test code = BRANDI) See scanned report [place] 92544022-03-18 09:37:11 Test Item Value Reference Range Interpretation Comments Scan Result (test code = See scanned report [id number]) BRANDI (test code = BRANDI) See scanned report [place] [id number] 09:37:11 Test Item Value Reference Range Interpretation Comments Scan Result (test code = See scanned report [id number]) BRANDI (test code = BRANDI) See scanned report [place] 389382-03-18 09:37:11 Test Item Value Reference Range Interpretation Comments Scan Result (test code = See scanned report [id number]) BRANDI (test code = BRANDI) See scanned report [place] 389382-03-18 09:37:11 Test Item Value Reference Range Interpretation Comments Scan Result (test code = See scanned report [id number]) BRANDI (test code = BRANDI) See scanned report [place] 389382-03-18 09:37:11 Test Item Value Reference Range Interpretation Comments Scan Result (test code = See scanned report [id number]) BRANDI (test code = BRANDI) See scanned report [place] 389382-03-18 09:37:11 Test Item Value Reference Range Interpretation Comments Scan Result (test code = See scanned report [id number]) BRANDI (test code = BRANDI) See scanned report [place] 92544022-03-18 09:37:11 Test Item Value Reference Range Interpretation Comments Scan Result (test code = See scanned report [id number]) BRANDI (test code = BRANDI) See scanned report [place] 92544022-03-18 09:37:11 Test Item Value Reference Range Interpretation Comments Scan Result (test code = See scanned report [id number]) BRANDI (test code = BRANDI) See scanned report [place] 92544022-03-18 09:37:11 Test Item Value Reference Range Interpretation Comments Scan Result (test code = See scanned report [id number]) BRANDI (test code = BRANDI) See scanned report [place] 92544022-03-18 09:37:11 Test Item Value Reference Range Interpretation Comments Scan Result (test code = See scanned report [id number]) BRANDI (test code = BRANDI) See scanned report [place] 92544022-03-18 09:37:11 Test Item Value Reference Range Interpretation Comments Scan Result (test code = See scanned report [id number]) BRANDI (test code = BRANDI) See scanned report [place] 92544022-03-18 09:37:11 Test Item Value Reference Range Interpretation Comments Scan Result (test code = See scanned report [id number]) BRANDI (test code = BRANDI) See scanned report [facility] [id number] 09:37:11 Test Item Value Reference Range Interpretation Comments SCAN RESULT (test code = See scanned report [id number]) See scanned reportPOCT-GLUCOSE [id number] 08:52:16 Test Item Value Reference Range Interpretation Comments POC-GLUCOSE METER 165 mg/dL 70-110 H : TESTED A T [facility] 6720 (BEAKER) (test code = YUDY LLOYD, 1538) 13813: Bead Wrapper/Techni kelle ID = [id number] for Br ooks, Chilo RAD, CHEST, 1 VIEW, NON [id number] 04:10:00Reason for exam:->post-opShould this be performed at the bedside?->Yes [facility] 1955 Sex: FFINAL REPORT RAD, CHEST, 1 VIEW, NON DEPT INDICATION: post-op COMPARISON: Prior day's exam FINDINGS: Portable frontal view of the chest. IMPRESSION: Support Lines: Stable Lungs and pleura: Unchanged central venous congestion. No new consolidation or effusion. No pneumothorax. Heart and mediastinum: Stable contours. Additional findings: None. Signed: Andrew Cary MDReport Verified Date/Time: 06/19/2021 04:10:04 BASIC METABOLIC [id number] 03:27:20 Test Item Value Reference Range Interpretation [...] S NOT APPLICABLE FOR DIALYSIS PATIEN TS. Bead Wrapper ID - RAKAN [id number] 03:26:39 Test Item Value Reference Range Interpretation Comments MAGNESIUM (BEAKER) (test code = 2.4 mg/dL 1.6-2.6 627) Bead Wrapper ID - RAKAN [id number] 03:26:39 Test Item Value Reference Range Interpretation Comments PHOSPHORUS (BEAKER) (test code = 4.8 mg/dL 2.3-4.7 H 604) Bead Wrapper ID - RAKAN [id number] 03:02:29 Test Item Value Reference Range Interpretation Comments PARTIAL THROMBOPLASTIN TIME 35.4 seconds 22.5-36.0 (BEAKER) (test code = 760) PROTHROMBIN TIME/[id number] 03:01:50 Test Item Value Reference Range Interpretation Comments PROTIME (BEAKER) 16.0 seconds 11.9-14.2 H (test code = 759) INR (BEAKER) (test 1.31 See_Comment [Automat ed message] code = 370) The system [employer] generated this result transmitted ref erence range: [...] 0-0 (test code = 413) OXYGEN SATURATION, [id number] 02:28:43 Test Item Value Reference Range Interpretation Comments O2 SATURATION (MEASURED) (BEAKER) 79.3 % (test code = 1455) BLOOD GAS, [id number] 02:25:53 Test Item Value Reference Range Interpretation [...] (BEAKER) (test code = 1819) 40.0 POCT-GLUCOSE [id number] 00:06:42 Test Item Value Reference Range Interpretation Comments POC-GLUCOSE METER 88 mg/dL 70-110 : TESTED A T [facility] 6720 (BEAKER) (test code = YUDY [place], 1538) 52871: Bead Wrapper/Techni kelle ID = [id number] for EVITA VictorAlexERICK Molina POCT-GLUCOSE [id number] 23:14:53 Test Item Value Reference Range Interpretation Comments POC-GLUCOSE METER 91 mg/dL 70-110 : TESTED A T [facility] 6720 (BEAKER) (test code = [facility], 1538) 73478: Bead Wrapper/Techni kelle ID = [id number] for EVITA METZGER (V), ERICK POCT-GLUCOSE [id number] 21:30:27 Test Item Value Reference Range Interpretation Comments POC-GLUCOSE METER 128 mg/dL 70-110 H : TESTED A T [facility] 6720 (BEAKER) (test code = [facility], 1538) 60783: Bead Wrapper/Techni kelle ID = [id number] for WILLARD HERZOG (V), ERICK POCT-GLUCOSE [id number] 19:05:18 Test Item Value Reference Range Interpretation Comments POC-GLUCOSE METER 165 mg/dL 70-110 H : TESTED A T [facility] 6720 (BEAKER) (test code = [facility], 1538) 37905: Bead Wrapper/Techni kelle ID = [id number] for MARIBEL BERUMENSMI BASIC METABOLIC [id number] 18:47:16 Test Item Value Reference Range Interpretation [...] S NOT APPLICABLE FOR DIALYSIS PATIEN TS. Bead Wrapper ID - HIEN [id number] 18:44:55 Test Item Value Reference Range Interpretation Comments MAGNESIUM (BEAKER) (test code = 2.5 mg/dL 1.6-2.6 627) Bead Wrapper ID - HIEN [id number] 18:44:55 Test Item Value Reference Range Interpretation Comments PHOSPHORUS (BEAKER) (test code = 4.7 mg/dL 2.3-4.7 604) Bead Wrapper ID - HIEN MBLOOD GAS, [id number] 18:43:01 Test Item Value Reference Range Interpretation [...] (test code = 1819) 60.0 OXYGEN SATURATION, [id number] 18:40:36 Test Item Value Reference Range Interpretation Comments O2 SATURATION (MEASURED) (BEAKER) 90.5 % (test code = 1455) Lactic Acid, [id number] 18:40:35 Test Item Value Reference Range Interpretation Comments Lactate, Art (test code = 2.1 mmol/L 0.5-2.2 2874) BRANDI (test code = BRANDI) Bead Wrapper ID Bassam STANFORD M Lab Interpretation (test Normal code = 03419-5) [facility], [id number] 18:40:35 Test Item Value Reference Range Interpretation Comments Lactate, Art (test code = 2.1 mmol/L 0.5-2.2 2874) BRANDI (test code = BRANDI) Bead Wrapper NORAH STANFORD M Lab Interpretation (test Normal code = 85409-8) [facility], [id number] 18:40:35 Test Item Value Reference Range Interpretation Comments Lactate, Art (test code = 2.1 mmol/L 0.5-2.2 2874) BRANDI (test code = BRANDI) Bead Wrapper ID - HIEN M Lab Interpretation (test Normal code = 60709-5) [facility], [id number] 18:40:35 Test Item Value Reference Range Interpretation Comments Lactate, Art (test code = 2.1 mmol/L 0.5-2.2 2874) BRANDI (test code = BRANDI) Bead Wrapper ID - HIEN M Lab Interpretation (test Normal code = 20404-8) [facility], [id number] 18:40:35 Test Item Value Reference Range Interpretation Comments Lactate, Art (test code = 2.1 mmol/L 0.5-2.2 2874) BRANDI (test code = BRANDI) Bead Wrapper ID - HIEN M Lab Interpretation (test Normal code = 20643-1) [facility], [id number] 18:40:35 Test Item Value Reference Range Interpretation Comments Lactate, Art (test code = 2.1 mmol/L 0.5-2.2 2874) BRANDI (test code = BRANDI) Bead Wrapper ID - HIEN M Lab Interpretation (test Normal code = 81838-0) [facility], [id number] 18:40:35 Test Item Value Reference Range Interpretation Comments Lactate, Art (test code = 2.1 mmol/L 0.5-2.2 2874) BRANDI (test code = BRANDI) Bead Wrapper ID - HIEN M Lab Interpretation (test Normal code = 52678-9) [facility], [id number] 18:40:35 Test Item Value Reference Range Interpretation Comments Lactate, Art (test code = 2.1 mmol/L 0.5-2.2 2874) BRANDI (test code = BRANDI) Bead Wrapper ID - HIEN M Lab Interpretation (test Normal code = 66386-8) [facility], [id number] 18:40:35 Test Item Value Reference Range Interpretation Comments Lactate, Art (test code = 2.1 mmol/L 0.5-2.2 2874) BRANDI (test code = BRANDI) Bead Wrapper ID - HIEN M Lab Interpretation (test Normal code = 31249-7) [facility], [id number] 18:40:35 Test Item Value Reference Range Interpretation Comments Lactate, Art (test code = 2.1 mmol/L 0.5-2.2 2874) BRANDI (test code = BRANDI) Bead Wrapper ID - [facility] Lab Interpretation (test Normal code = 55498-4) [facility], [id number] 18:40:35 Test Item Value Reference Range Interpretation Comments Lactate, Art (test code = 2.1 mmol/L 0.5-2.2 2874) BRANDI (test code = BRANDI) Bead Wrapper ID - [facility] Lab Interpretation (test Normal code = 66917-6) [facility], [id number] 18:40:35 Test Item Value Reference Range Interpretation Comments Lactate, Art (test code = 2.1 mmol/L 0.5-2.2 2874) BRANDI (test code = BRANDI) Bead Wrapper ID - [facility] Lab Interpretation (test Normal code = 92442-5) [facility], [id number] 18:40:35 Test Item Value Reference Range Interpretation Comments Lactate, Art (test code = 2.1 mmol/L 0.5-2.2 2874) BRANDI (test code = BRANDI) Bead Wrapper ID - [facility] Lab Interpretation (test Normal code = 47761-6) [facility], [id number] 18:40:35 Test Item Value Reference Range Interpretation Comments Lactate, Art (test code = 2.1 mmol/L 0.5-2.2 2874) BRANDI (test code = BRANDI) Bead Wrapper ID - [facility] Lab Interpretation (test Normal code = 47941-5) [facility] HospitalLA[facility] ACID, [id number] 18:40:35 Test Item Value Reference Range Interpretation Comments LACTATE BLOOD ARTERIAL (2) 2.1 mmol/L 0.5-2.2 (BEAKER) (test code = 2874) Bead Wrapper ID - HIEN [id number] 18:38:33 Test Item Value Reference Range Interpretation Comments PARTIAL THROMBOPLASTIN TIME 37.2 seconds 22.5-36.0 H (BEAKER) (test code = 760) PROTHROMBIN [id number] 18:37:33 Test Item Value Reference Range Interpretation Comments PROTIME (BEAKER) 16.6 seconds 11.9-14.2 H (test code = 759) INR (BEAKER) (test 1.37 See_Comment [Automat ed message] code = 370) The system [employer] generated this result transmitted ref erence range: [...] 0-0 (test code = 413) HGB/HCT (H&H)-Stat [id number] 16:13:19 Test Item Value Reference Range Interpretation Comments Hemoglobin (test code = 10.6 See_Comment L [Au tomated message] 786-4) The system [employer] D[employer] generated this result transmitted ref erence range: 12.0 - 1 5.0 GM/DL. The refe rence range was not u sed to interpret this result as normal/abnor mal. Hematocrit (test code = 31.0 % 36.0-45.0 L 4544-3) Lab Interpretation (test Abnormal code = 61979-0) [facility] [id number] 16:13:19 Test Item Value Reference Range Interpretation Comments Hemoglobin (test code = 10.6 See_Comment L [Au tomated message] 786-4) The system [employer] generated this result transmitted ref erence range: 12.0 - 1 5.0 GM/DL. The refe rence range was not u sed to interpret this result as normal/abnor mal. Hematocrit (test code = 31.0 % 36.0-45.0 L 4544-3) Lab Interpretation (test Abnormal code = 74706-7) [facility]Stat [id number] 16:13:19 Test Item Value Reference Range Interpretation Comments Hemoglobin (test code = 10.6 See_Comment L [Au tomated message] 786-4) The system [employer] generated this result transmitted ref erence range: 12.0 - 1 5.0 GM/DL. The refe rence range was not u sed to interpret this result as normal/abnor mal. Hematocrit (test code = 31.0 % 36.0-45.0 L 4544-3) Lab Interpretation (test Abnormal code = 74008-7) [facility]Stat [id number] 16:13:19 Test Item Value Reference Range Interpretation Comments Hemoglobin (test code = 10.6 See_Comment L [Au tomated message] 786-4) The system [employer] generated this result transmitted ref erence range: 12.0 - 1 5.0 GM/DL. The refe rence range was not u sed to interpret this result as normal/abnor mal. Hematocrit (test code = 31.0 % 36.0-45.0 L 4544-3) Lab Interpretation (test Abnormal code = 34986-7) [facility]Stat [id number] 16:13:19 Test Item Value Reference Range Interpretation Comments Hemoglobin (test code = 10.6 See_Comment L [Au tomated message] 786-4) The system [employer] generated this result transmitted ref erence range: 12.0 - 1 5.0 GM/DL. The refe rence range was not u sed to interpret this result as normal/abnor mal. Hematocrit (test code = 31.0 % 36.0-45.0 L 4544-3) Lab Interpretation (test Abnormal code = 38814-5) [facility]Stat [id number] 16:13:19 Test Item Value Reference Range Interpretation Comments Hemoglobin (test code = 10.6 See_Comment L [Au tomated message] 786-4) The system [employer] generated this result transmitted ref erence range: 12.0 - 1 5.0 GM/DL. The refe rence range was not u sed to interpret this result as normal/abnor mal. Hematocrit (test code = 31.0 % 36.0-45.0 L 4544-3) Lab Interpretation (test Abnormal code = 37998-1) [facility]Stat [id number] 16:13:19 Test Item Value Reference Range Interpretation Comments Hemoglobin (test code = 10.6 See_Comment L [Au tomated message] 786-4) The system [employer] generated this result transmitted ref erence range: 12.0 - 1 5.0 GM/DL. The refe rence range was not u sed to interpret this result as normal/abnor mal. Hematocrit (test code = 31.0 % 36.0-45.0 L 4544-3) Lab Interpretation (test Abnormal code = 66815-0) [facility]Stat [id number] 16:13:19 Test Item Value Reference Range Interpretation Comments Hemoglobin (test code = 10.6 See_Comment L [Au tomated message] 786-4) The system [employer] generated this result transmitted ref erence range: 12.0 - 1 5.0 GM/DL. The refe rence range was not u sed to interpret this result as normal/abnor mal. Hematocrit (test code = 31.0 % 36.0-45.0 L 4544-3) Lab Interpretation (test Abnormal code = 40786-7) [facility]Stat [id number] 16:13:19 Test Item Value Reference Range Interpretation Comments Hemoglobin (test code = 10.6 See_Comment L [Au tomated message] 786-4) The system [employer] generated this result transmitted ref erence range: 12.0 - 1 5.0 GM/DL. The refe rence range was not u sed to interpret this result as normal/abnor mal. Hematocrit (test code = 31.0 % 36.0-45.0 L 4544-3) Lab Interpretation (test Abnormal code = 02590-3) [facility]Stat [id number] 16:13:19 Test Item Value Reference Range Interpretation Comments Hemoglobin (test code = 10.6 See_Comment L [Au tomated message] 786-4) The system [employer] D[employer] generated this result transmitted ref erence range: 12.0 - 1 5.0 GM/DL. The refe rence range was not u sed to interpret this result as normal/abnor mal. Hematocrit (test code = 31.0 % 36.0-45.0 L 4544-3) Lab Interpretation (test Abnormal code = 22072-8) [facility]Stat [id number] 16:13:19 Test Item Value Reference Range Interpretation Comments Hemoglobin (test code = 10.6 See_Comment L [Au tomated message] 786-4) The system [employer] generated this result transmitted ref erence range: 12.0 - 1 5.0 GM/DL. The refe rence range was not u sed to interpret this result as normal/abnor mal. Hematocrit (test code = 31.0 % 36.0-45.0 L 4544-3) Lab Interpretation (test Abnormal code = 89057-2) [facility]Stat [id number] 16:13:19 Test Item Value Reference Range Interpretation Comments Hemoglobin (test code = 10.6 See_Comment L [Au tomated message] 786-4) The system [employer] D[employer] generated this result transmitted ref erence range: 12.0 - 1 5.0 GM/DL. The refe rence range was not u sed to interpret this result as normal/abnor mal. Hematocrit (test code = 31.0 % 36.0-45.0 L 4544-3) Lab Interpretation (test Abnormal code = 58990-5) [facility]Stat [id number] 16:13:19 Test Item Value Reference Range Interpretation Comments Hemoglobin (test code = 10.6 See_Comment L [Au tomated message] 786-4) The system [employer] generated this result transmitted ref erence range: 12.0 - 1 5.0 GM/DL. The refe rence range was not u sed to interpret this result as normal/abnor mal. Hematocrit (test code = 31.0 % 36.0-45.0 L 4544-3) Lab Interpretation (test Abnormal code = 79142-9) [facility]Stat [id number] 16:13:19 Test Item Value Reference Range Interpretation Comments Hemoglobin (test code = 10.6 See_Comment L [Au tomated message] 786-4) The system [employer] generated this result transmitted ref erence range: 12.0 - 1 5.0 GM/DL. The refe rence range was not u sed to interpret this result as normal/abnor mal. Hematocrit (test code = 31.0 % 36.0-45.0 L 4544-3) Lab Interpretation (test Abnormal code = 11289-0) [facility] - STAT [id number] 16:13:19 Test Item Value Reference Range Interpretation Comments HEMOGLOBIN (BEAKER) (test code = 10.6 GM/DL 12.0-15.0 L 410) HEMATOCRIT (BEAKER) (test code = 31.0 % 36.0-45.0 L 411) Glucose-Stat [id number] 16:13:18 Test Item Value Reference Range Interpretation Comments Glucose (test code = 2345-7) 205 mg/dL 70-110 H Lab Interpretation (test code = Abnormal 54681-1) [facility] [id number] 16:13:18 Test Item Value Reference Range Interpretation Comments Sodium (test code = 2951-2) 134 meq/L 136-145 L Lab Interpretation (test code = Abnormal 99397-3) [facility] HospitalGlucose[facility]Stat [id number] 16:13:18 Test Item Value Reference Range Interpretation Comments Glucose (test code = 2345-7) 205 mg/dL 70-110 H Lab Interpretation (test code = Abnormal 87091-1) [facility] [id number] 16:13:18 Test Item Value Reference Range Interpretation Comments Sodium (test code = 2951-2) 134 meq/L 136-145 L Lab Interpretation (test code = Abnormal 61487-8) [facility]Glucose[facility]Stat [id number] 16:13:18 Test Item Value Reference Range Interpretation Comments Glucose (test code = 2345-7) 205 mg/dL 70-110 H Lab Interpretation (test code = Abnormal 33477-8) [facility] [id number] 16:13:18 Test Item Value Reference Range Interpretation Comments Sodium (test code = 2951-2) 134 meq/L 136-145 L Lab Interpretation (test code = Abnormal 61460-6) [facility] HospitalGlucose-Stat [id number] 16:13:18 Test Item Value Reference Range Interpretation Comments Glucose (test code = 2345-7) 205 mg/dL 70-110 H Lab Interpretation (test code = Abnormal 05231-6) [facility] [id number] 16:13:18 Test Item Value Reference Range Interpretation Comments Sodium (test code = 2951-2) 134 meq/L 136-145 L Lab Interpretation (test code = Abnormal 27878-8) [facility] HospitalGlucose-Stat [id number] 16:13:18 Test Item Value Reference Range Interpretation Comments Glucose (test code = 2345-7) 205 mg/dL 70-110 H Lab Interpretation (test code = Abnormal 23498-2) [facility] [id number] 16:13:18 Test Item Value Reference Range Interpretation Comments Sodium (test code = 2951-2) 134 meq/L 136-145 L Lab Interpretation (test code = Abnormal 55668-8) [facility] HospitalGlucose-Stat [id number] 16:13:18 Test Item Value Reference Range Interpretation Comments Glucose (test code = 2345-7) 205 mg/dL 70-110 H Lab Interpretation (test code = Abnormal 09018-0) [facility] Na-Stat [id number] 16:13:18 Test Item Value Reference Range Interpretation Comments Sodium (test code = 2951-2) 134 meq/L 136-145 L Lab Interpretation (test code = Abnormal 86356-8) [facility] HospitalGlucose-Stat [id number] 16:13:18 Test Item Value Reference Range Interpretation Comments Glucose (test code = 2345-7) 205 mg/dL 70-110 H Lab Interpretation (test code = Abnormal 21441-9) [facility] [id number] 16:13:18 Test Item Value Reference Range Interpretation Comments Sodium (test code = 2951-2) 134 meq/L 136-145 L Lab Interpretation (test code = Abnormal 75335-5) [facility] HospitalGlucose-Stat [id number] 16:13:18 Test Item Value Reference Range Interpretation Comments Glucose (test code = 2345-7) 205 mg/dL 70-110 H Lab Interpretation (test code = Abnormal 86909-2) [facility] [id number] 16:13:18 Test Item Value Reference Range Interpretation Comments Sodium (test code = 2951-2) 134 meq/L 136-145 L Lab Interpretation (test code = Abnormal 84208-9) [facility]Glucose-Stat [id number] 16:13:18 Test Item Value Reference Range Interpretation Comments Glucose (test code = 2345-7) 205 mg/dL 70-110 H Lab Interpretation (test code = Abnormal 11144-2) [facility] [id number] 16:13:18 Test Item Value Reference Range Interpretation Comments Sodium (test code = 2951-2) 134 meq/L 136-145 L Lab Interpretation (test code = Abnormal 67265-8) [facility] HospitalGlucose-Stat [id number] 16:13:18 Test Item Value Reference Range Interpretation Comments Glucose (test code = 2345-7) 205 mg/dL 70-110 H Lab Interpretation (test code = Abnormal 86811-1) [facility] [id number] 16:13:18 Test Item Value Reference Range Interpretation Comments Sodium (test code = 2951-2) 134 meq/L 136-145 L Lab Interpretation (test code = Abnormal 45251-8) [facility]Glucose[facility]Stat [id number] 16:13:18 Test Item Value Reference Range Interpretation Comments Glucose (test code = 2345-7) 205 mg/dL 70-110 H Lab Interpretation (test code = Abnormal 35219-6) [facility] [id number] 16:13:18 Test Item Value Reference Range Interpretation Comments Sodium (test code = 2951-2) 134 meq/L 136-145 L Lab Interpretation (test code = Abnormal 50128-5) [facility]Glucose-Stat [id number] 16:13:18 Test Item Value Reference Range Interpretation Comments Glucose (test code = 2345-7) 205 mg/dL 70-110 H Lab Interpretation (test code = Abnormal 20948-5) [facility] [id number] 16:13:18 Test Item Value Reference Range Interpretation Comments Sodium (test code = 2951-2) 134 meq/L 136-145 L Lab Interpretation (test code = Abnormal 91318-8) [facility]Glucose[facility]Stat [id number] 16:13:18 Test Item Value Reference Range Interpretation Comments Glucose (test code = 2345-7) 205 mg/dL 70-110 H Lab Interpretation (test code = Abnormal 47777-3) [facility] [id number] 16:13:18 Test Item Value Reference Range Interpretation Comments Sodium (test code = 2951-2) 134 meq/L 136-145 L Lab Interpretation (test code = Abnormal 42077-8) [facility] HospitalGlucose-Stat [id number] 16:13:18 Test Item Value Reference Range Interpretation Comments Glucose (test code = 2345-7) 205 mg/dL 70-110 H Lab Interpretation (test code = Abnormal 84255-8) [facility] [id number] 16:13:18 Test Item Value Reference Range Interpretation Comments Sodium (test code = 2951-2) 134 meq/L 136-145 L Lab Interpretation (test code = Abnormal 80588-4) [facility] [id number] 16:13:18 Test Item Value Reference Range Interpretation Comments SODIUM (BEAKER) (test code = 381) 134 meq/L 136-145 L GLUCOSE-STAT [id number] 16:13:18 Test Item Value Reference Range Interpretation Comments GLUCOSE RANDOM (BEAKER) (test code 205 mg/dL 70-110 H = 652) BLOOD GAS, [id number] 16:13:17 Test Item Value Reference Range Interpretation [...] (BEAKER) (test code = 1819) 60.0 Potassium-Stat [id number] 16:11:46 Test Item Value Reference Range Interpretation Comments Potassium (test code = 2823-3) 4.5 meq/L 3.6-5.5 Lab Interpretation (test code = Normal 30719-3) [facility] [id number] 16:11:46 Test Item Value Reference Range Interpretation Comments Potassium (test code = 2823-3) 4.5 meq/L 3.6-5.5 Lab Interpretation (test code = Normal 37569-0) [facility] Sqf8962-67-26 16:11:46 Test Item Value Reference Range Interpretation Comments Potassium (test code = 2823-3) 4.5 meq/L 3.6-5.5 Lab Interpretation (test code = Normal 87480-4) [id number] 16:11:46 Test Item Value Reference Range Interpretation Comments Potassium (test code = 2823-3) 4.5 meq/L 3.6-5.5 Lab Interpretation (test code = Normal 56356-4) [facility] Ypu8509-01-13 16:11:46 Test Item Value Reference Range Interpretation Comments Potassium (test code = 2823-3) 4.5 meq/L 3.6-5.5 Lab Interpretation (test code = Normal 07828-9) [facility] [id number] 16:11:46 Test Item Value Reference Range Interpretation Comments Potassium (test code = 2823-3) 4.5 meq/L 3.6-5.5 Lab Interpretation (test code = Normal 64008-5) [facility] Pll9642-57-78 16:11:46 Test Item Value Reference Range Interpretation Comments Potassium (test code = 2823-3) 4.5 meq/L 3.6-5.5 Lab Interpretation (test code = Normal 59782-8) [facility] [id number] 16:11:46 Test Item Value Reference Range Interpretation Comments Potassium (test code = 2823-3) 4.5 meq/L 3.6-5.5 Lab Interpretation (test code = Normal 32689-2) [facility] [id number] 16:11:46 Test Item Value Reference Range Interpretation Comments Potassium (test code = 2823-3) 4.5 meq/L 3.6-5.5 Lab Interpretation (test code = Normal 03937-2) [facility] [id number] 16:11:46 Test Item Value Reference Range Interpretation Comments Potassium (test code = 2823-3) 4.5 meq/L 3.6-5.5 Lab Interpretation (test code = Normal 88253-3) [facility] [id number] 16:11:46 Test Item Value Reference Range Interpretation Comments Potassium (test code = 2823-3) 4.5 meq/L 3.6-5.5 Lab Interpretation (test code = Normal 56800-4) [facility] [id number] 16:11:46 Test Item Value Reference Range Interpretation Comments Potassium (test code = 2823-3) 4.5 meq/L 3.6-5.5 Lab Interpretation (test code = Normal 47025-5) [facility] [id number] 16:11:46 Test Item Value Reference Range Interpretation Comments Potassium (test code = 2823-3) 4.5 meq/L 3.6-5.5 Lab Interpretation (test code = Normal 91895-9) [facility] [id number] 16:11:46 Test Item Value Reference Range Interpretation Comments Potassium (test code = 2823-3) 4.5 meq/L 3.6-5.5 Lab Interpretation (test code = Normal 80827-5) [facility] [id number] 16:11:46 Test Item Value Reference Range Interpretation Comments POTASSIUM (BEAKER) (test code = 4.5 meq/L 3.6-5.5 379) CALCIUM, [id number] 16:11:08 Test Item Value Reference Range Interpretation Comments CALCIUM IONIZED (BEAKER) (test 1.16 mmol/L 1.12-1.27 code = 698) PH, BLOOD (BEAKER) (test code = 7.44 1810) Manual Eeiglqmslloa5205-98-67 16:00:23 Test Item Value Reference Range Interpretation [...] Poikilocytes (test code = 1+ few 966) Wild Horse Cells (test code = 1+ few 474) Artifact (test code = Present 3432) Platelet Conc (test code Decreased = 3438) BRANDI (test code = BRANDI) Bead Wrapper ID - Liza Tabitha comments: Slide comments: Lab Interpretation (test Abnormal code = 15905-2) [facility] Zypvsutkjukw4555-78-32 16:00:23 Test Item Value Reference Range Interpretation [...] = 3438) BRANDI (test code = BRANDI) Bead Wrapper ID - Liza Lu comments: Slide comments: Lab Interpretation (test Abnormal code = 57269-3) [facility] Dzzarsqjollv4511-88-59 16:00:23 Test Item Value Reference Range Interpretation [...] = 3438) BRANDI (test code = BRANDI) Bead Wrapper ID - Liza Lu comments: Slide comments: Lab Interpretation (test Abnormal code = 13386-3) [facility] Bxiwaphqagmv5323-61-30 16:00:23 Test Item Value Reference Range Interpretation [...] Poikilocytes (test code = 1+ few 966) Wild Horse Cells (test code = 1+ few 474) Artifact (test code = Present 3432) Platelet Conc (test code Decreased = 3438) BRANDI (test code = BRANDI) Bead Wrapper ID - Liza Lu comments: Slide comments: Lab Interpretation (test Abnormal code = 15366-3) [facility] Tdawmcwxjnvz8117-74-14 16:00:23 Test Item Value Reference Range Interpretation [...] Poikilocytes (test code = 1+ few 966) Wild Horse Cells (test code = 1+ few 474) Artifact (test code = Present 3432) Platelet Conc (test code Decreased = 3438) BRANDI (test code = BRANDI) Bead Wrapper ID - Liza Lu comments: Slide comments: Lab Interpretation (test Abnormal code = 66487-9) [facility] Zeboyqgerwnd6403-25-27 16:00:23 Test Item Value Reference Range Interpretation [...] = 3438) BRANDI (test code = BRANDI) Bead Wrapper ID - Liza Lu comments: Slide comments: Lab Interpretation (test Abnormal code = 82751-5) [facility] Zoksvvzryfyj4881-98-42 16:00:23 Test Item Value Reference Range Interpretation [...] Poikilocytes (test code = 1+ few 966) Wild Horse Cells (test code = 1+ few 474) Artifact (test code = Present 3432) Platelet Conc (test code Decreased = 3438) BRANDI (test code = BRANDI) Bead Wrapper ID - Liza Lu comments: Slide comments: Lab Interpretation (test Abnormal code = 91606-9) [facility] Illjnvlgjawr8316-81-49 16:00:23 Test Item Value Reference Range Interpretation [...] = 3438) BRANDI (test code = BRANDI) Bead Wrapper ID - Liza Lu comments: Slide comments: Lab Interpretation (test Abnormal code = 16280-8) [facility] Tdqxjockneei6007-42-76 16:00:23 Test Item Value Reference Range Interpretation [...] = 3438) BRANDI (test code = BRANDI) Bead Wrapper ID - Liza Lu comments: Slide comments: Lab Interpretation (test Abnormal code = 20891-8) [facility] Buzfblyceapu3104-82-68 16:00:23 Test Item Value Reference Range Interpretation [...] Poikilocytes (test code = 1+ few 966) Wild Horse Cells (test code = 1+ few 474) Artifact (test code = Present 3432) Platelet Conc (test code Decreased = 3438) BRANDI (test code = BRANDI) Bead Wrapper ID - Liza Lu comments: Slide comments: Lab Interpretation (test Abnormal code = 08625-1) [facility] Jkeukohzftyg3029-72-83 16:00:23 Test Item Value Reference Range Interpretation [...] Poikilocytes (test code = 1+ few 966) Wild Horse Cells (test code = 1+ few 474) Artifact (test code = Present 3432) Platelet Conc (test code Decreased = 3438) BRANDI (test code = BRANDI) Bead Wrapper ID - Liza Lu comments: Slide comments: Lab Interpretation (test Abnormal code = 84565-1) [facility] Xhlnpatvxers8469-49-08 16:00:23 Test Item Value Reference Range Interpretation [...] Poikilocytes (test code = 1+ few 966) Wild Horse Cells (test code = 1+ few 474) Artifact (test code = Present 3432) Platelet Conc (test code Decreased = 3438) BRANDI (test code = BRANDI) Bead Wrapper ID - Liza Lu comments: Slide comments: Lab Interpretation (test Abnormal code = 87461-1) [facility] Hcroceskechg3043-50-37 16:00:23 Test Item Value Reference Range Interpretation [...] Poikilocytes (test code = 1+ few 966) Wild Horse Cells (test code = 1+ few 474) Artifact (test code = Present 3432) Platelet Conc (test code Decreased = 3438) BRANDI (test code = BRANDI) Bead Wrapper ID - Liza Lu comments: Slide comments: Lab Interpretation (test Abnormal code = 13185-0) [facility] Kwvmrdaokpru2031-20-10 16:00:23 Test Item Value Reference Range Interpretation Comments % Neutros (test code = 89 % 2816) % Lymphs (test code = 4 % 2817) % Monos (test code = 6 % 2818) % Myelo (test code = 1 % 0-0 H 282) # Neutros (test code = 14.42 K/ul 1.56-6.13 H 283) # Lymphs (test code = 0.65 K/ul 1.18-3.74 L 283) # Monos (test code = 0.97 K/uL 0.24-0.36 H 283) # Myelo (test code = 0.16 K/uL 0.00-0.00 H 283) Total Counted (test code 100 = 1351) Platelet Morphology (test Normal code = 486) Smudge Cells (test code = Present 1371) Anisocytosis (test code = 1+ few 961) Macrocytes (test code = 1+ few 964) Poikilocytes (test code = 1+ few 966) Wild Horse Cells (test code = 1+ few 474) Artifact (test code = Present 3432) Platelet Conc (test code Decreased = 3438) BRANDI (test code = BRANDI) Bead Wrapper ID - Liza Lu comments: Slide comments: Lab Interpretation (test Abnormal code = 82030-1) [facility](CELLAVISION MANUAL DIFF)2021-06-18 16:00:23 Test Item Value [...] CONCENTRATION Decreased (CELLAVISION)(BEAKER) (test code = 3438) Bead Wrapper ID - Liza Tabitha comments: Slide comments:RAD, CHEST, 1 VIEW, NON [id number] 15:58:00Reason for exam:->Post-opShould this be performed at the bedside?->Yes [facility] : 1955 Sex: FFINAL REPORT CHEST AP PORTABLE COMPARISON STUDY: 06/10/2021 History provided: Postopevaluation ET tube in place with tip midway between clavicles and marlon. NG tip in the stomach. Right jugular Nicholson-Blayne catheter with tip in the right main pulmonary artery. Chest tubes with no pneumothorax. Mild right basilar atelectasis with trace right pleural effusion. Lungs otherwise grossly clear and vascularity normal. Signed: Wero Alvarez MDReport Verified Date/Time: 06/18/2021 15:58:54 Reading Location: [facility] Diagnostic Imaging Reading Room [place] [address] 1.310.12 C METABOLIC [id number] 15:57:50 Test Item Value Reference Range Interpretation [...] S NOT APPLICABLE FOR DIALYSIS PATIEN TS. Bead Wrapper ID - HIEN GYqawpiaor-KFBF4006-92-17 15:57:19 Test Item Value Reference Range Interpretation Comments Potassium (test code = 2823-3) 4.8 meq/L 3.5-5.1 Lab Interpretation (test code = Normal 20267-8) [facility]YOQW5969-80-42 15:57:19 Test Item Value Reference Range Interpretation Comments Potassium (test code = 2823-3) 4.8 meq/L 3.5-5.1 Lab Interpretation (test code = Normal 94233-1) [facility]-SKGS9713-73-37 15:57:19 Test Item Value Reference Range Interpretation Comments Potassium (test code = 2823-3) 4.8 meq/L 3.5-5.1 Lab Interpretation (test code = Normal 63012-1) [facility]-WHHW0719-61-54 15:57:19 Test Item Value Reference Range Interpretation Comments Potassium (test code = 2823-3) 4.8 meq/L 3.5-5.1 Lab Interpretation (test code = Normal 90742-9) [facility]-KJXT4071-03-24 15:57:19 Test Item Value Reference Range Interpretation Comments Potassium (test code = 2823-3) 4.8 meq/L 3.5-5.1 Lab Interpretation (test code = Normal 18734-5) [facility] 15:57:19 Test Item Value Reference Range Interpretation Comments Potassium (test code = 2823-3) 4.8 meq/L 3.5-5.1 Lab Interpretation (test code = Normal 25366-0) [facility]VM2007-38-71 15:57:19 Test Item Value Reference Range Interpretation Comments Potassium (test code = 2823-3) 4.8 meq/L 3.5-5.1 Lab Interpretation (test code = Normal 80768-2) [facility]QBKM5035-39-10 15:57:19 Test Item Value Reference Range Interpretation Comments Potassium (test code = 2823-3) 4.8 meq/L 3.5-5.1 Lab Interpretation (test code = Normal 59309-8) [facility]GHQP2666-49-71 15:57:19 Test Item Value Reference Range Interpretation Comments Potassium (test code = 2823-3) 4.8 meq/L 3.5-5.1 Lab Interpretation (test code = Normal 73145-3) [facility]KAFD4905-86-20 15:57:19 Test Item Value Reference Range Interpretation Comments Potassium (test code = 2823-3) 4.8 meq/L 3.5-5.1 Lab Interpretation (test code = Normal 09487-1) [facility]-UXMG3116-21-25 15:57:19 Test Item Value Reference Range Interpretation Comments Potassium (test code = 2823-3) 4.8 meq/L 3.5-5.1 Lab Interpretation (test code = Normal 50472-5) [facility]EVLD8554-81-86 15:57:19 Test Item Value Reference Range Interpretation Comments Potassium (test code = 2823-3) 4.8 meq/L 3.5-5.1 Lab Interpretation (test code = Normal 31082-7) [facility]-YOIA3432-71-06 15:57:19 Test Item Value Reference Range Interpretation Comments Potassium (test code = 2823-3) 4.8 meq/L 3.5-5.1 Lab Interpretation (test code = Normal 44687-5) [facility]-FHWP1836-65-65 15:57:19 Test Item Value Reference Range Interpretation Comments Potassium (test code = 2823-3) 4.8 meq/L 3.5-5.1 Lab Interpretation (test code = Normal 60270-6) [facility]2022-03-17 15:57:19 Test Item Value Reference Range Interpretation Comments POTASSIUM (BEAKER) (test code = 4.8 meq/L 3.5-5.1 379) CRJFJMGZDK2868-54-38 15:57:19 Test Item Value Reference Range Interpretation Comments PHOSPHORUS (BEAKER) (test code = 4.9 mg/dL 2.3-4.7 H 604) Bead Wrapper ID - HIEN PYSACBTWLJ0787-43-44 15:57:18 Test Item Value Reference Range Interpretation Comments MAGNESIUM (BEAKER) (test code = 2.6 mg/dL 1.6-2.6 627) Bead Wrapper ID - HIEN MPrepare vromgg5879-59-67 15:44:00 Test Item Value Reference Range Interpretation Comments Unit ABO (test code = O Neg 9487227) UNIT NUMBER (test code = [id number] 934-0) Status (test code = RETURNED FROM ISSUE 8921194) Blood Bank Product (test FFP code = 2263) PRODUCT CODE (test code = K2440E30 933-2) [facility] pqbcoz2944-76-99 15:44:00 Test Item Value Reference Range Interpretation Comments Unit ABO (test code = O Neg 4709741) UNIT NUMBER (test code = [id number] 934-0) Status (test code = RETURNED FROM ISSUE 3273092) Blood Bank Product (test FFP code = 2263) PRODUCT CODE (test code = X0537C97 933-2) [facility] brylpy3950-93-56 15:44:00 Test Item Value Reference Range Interpretation Comments Unit ABO (test code = O Neg 7185991) UNIT NUMBER (test code = [id number] 934-0) Status (test code = RETURNED FROM ISSUE 9565516) Blood Bank Product (test FFP code = 2263) PRODUCT CODE (test code = S5081G89 933-2) [facility]2022-03-17 15:44:00 Test Item Value Reference Range Interpretation Comments Unit ABO (test code = O Neg 5515261) UNIT NUMBER (test code = [id number] 934-0) Status (test code = RETURNED FROM ISSUE 1583365) Blood Bank Product (test FFP code = 2263) PRODUCT CODE (test code = Z4997J97 933-2) [facility] dqzaix7955-22-44 15:44:00 Test Item Value Reference Range Interpretation Comments Unit ABO (test code = O Neg 8871574) UNIT NUMBER (test code = O056045268246 934-0) Status (test code = RETURNED FROM ISSUE 4994323) Blood Bank Product (test FFP code = 2263) PRODUCT CODE (test code = N4407K63 933-2) [facility]2022-03-17 15:44:00 Test Item Value Reference Range Interpretation Comments Unit ABO (test code = O Neg 3004750) UNIT NUMBER (test code = [id number] 934-0) Status (test code = RETURNED FROM ISSUE 4759334) Blood Bank Product (test FFP code = 2263) PRODUCT CODE (test code = U3347E87 933-2) [facility] yeuunf4476-28-07 15:44:00 Test Item Value Reference Range Interpretation Comments Unit ABO (test code = O Neg 7357184) UNIT NUMBER (test code = [id number] 934-0) Status (test code = RETURNED FROM ISSUE 5319219) Blood Bank Product (test FFP code = 2263) PRODUCT CODE (test code = A0080T47 933-2) [facility] rugdmh6457-93-27 15:44:00 Test Item Value Reference Range Interpretation Comments Unit ABO (test code = O Neg 0898865) UNIT NUMBER (test code = [id number] 934-0) Status (test code = RETURNED FROM ISSUE 4183602) Blood Bank Product (test FFP code = 2263) PRODUCT CODE (test code = O4988J40 933-2) [facility] ysstbk9617-64-52 15:44:00 Test Item Value Reference Range Interpretation Comments Unit ABO (test code = O Neg 5379391) UNIT NUMBER (test code = [id number] 934-0) Status (test code = RETURNED FROM ISSUE 5927936) Blood Bank Product (test FFP code = 2263) PRODUCT CODE (test code = I0265W49 933-2) [facility] hfnubi6229-19-50 15:44:00 Test Item Value Reference Range Interpretation Comments Unit ABO (test code = O Neg 9300770) UNIT NUMBER (test code = X066031763139 934-0) Status (test code = RETURNED FROM ISSUE 4751637) Blood Bank Product (test FFP code = 2263) PRODUCT CODE (test code = F8949N63 933-2) [facility] jqvjwd4675-69-40 15:44:00 Test Item Value Reference Range Interpretation Comments Unit ABO (test code = O Neg 9793753) UNIT NUMBER (test code = [id number] 934-0) Status (test code = RETURNED FROM ISSUE 4251158) Blood Bank Product (test FFP code = 2263) PRODUCT CODE (test code = K2699E71 933-2) [facility] qgturi7370-19-16 15:44:00 Test Item Value Reference Range Interpretation Comments Unit ABO (test code = O Neg 6790798) UNIT NUMBER (test code = [id number] 934-0) Status (test code = RETURNED FROM ISSUE 0508042) Blood Bank Product (test FFP code = 2263) PRODUCT CODE (test code = D8029I69 933-2) [facility] ydfttr5505-11-43 15:44:00 Test Item Value Reference Range Interpretation Comments Unit ABO (test code = O Neg 9658061) UNIT NUMBER (test code = W550786224672 934-0) Status (test code = RETURNED FROM ISSUE 15100613) Blood Bank Product (test FFP code = 2263) PRODUCT CODE (test code = P7059Z15 933-2) [facility] lrjegv8531-23-36 15:44:00 Test Item Value Reference Range Interpretation Comments Unit ABO (test code = O Neg 3505517) UNIT NUMBER (test code = S400914587777 934-0) Status (test code = RETURNED FROM ISSUE 15100613) Blood Bank Product (test FFP code = 2263) PRODUCT CODE (test code = O0578Q47 933-2) [facility] 15:32:33 Test Item Value Reference Range Interpretation Comments PARTIAL THROMBOPLASTIN TIME 37.6 seconds 22.5-36.0 H (BEAKER) (test code = 760) PROTHROMBIN TIME/SOM5037-41-06 15:31:52 Test Item Value Reference Range Interpretation Comments PROTIME (BEAKER) 17.9 seconds 11.9-14.2 H (test code = 759) INR (BEAKER) (test 1.50 See_Comment [Automat ed message] code = 370) The system [employer] generated this result transmitted ref erence range: <=5.90. The reference range was not used to int erpret this result as normal/abnormal . RECOMMENDED COUMADIN/WARFARIN INR THERAPY RANGESSTANDARD DOSE: 2.0 - 3.0 Includes: PROPHYLAXIS for venous thrombosis, systemic embolization; TREATMENT for venous thrombosis and/or pulmonary embolus.HIGH RISK: Target INR is 2.5-3.5 for patients with mechanical heart valves.CBC with platelet count + automated vkwq5983-45-57 15:24:09 Test Item Value Reference Range Interpretation Comments WBC (test code = 6690-2) 16.2 See_Comment H [A utomated message] The system [employer] generated this result transmitted ref erence range: 3.5 - 10 .5 K/L. The refe rence range was not u sed to interpret this result as normal/abnor mal. RBC (test code = 789-8) 3.33 See_Comment L [Au tomated message] The system [employer] generated this result transmitted ref erence range: 3.93 - 5 .22 M/L. The refe rence range was not u sed to interpret this result as normal/abnor mal. MCHC (test code = 786-4) 31.8 See_Comment L [A utomated message] The system [employer] generated this result transmitted ref erence range: [...] L [Aut omated message] 777-3) The system [employer] generated this result transmitted ref erence range: 150 - 45 0 K/CU MM. The referen ce range was not u sed to interpret this result as normal/abnor mal. MPV (test code = 10.3 fL 9.4-12.3 51138-2) nRBC (test code = 413) 0 See_Comment [Aut omated message] The system [employer] generated this result transmitted ref erence range: 0 - 0 /1 00 WBC. The refere nce range was not u sed to interpret this result as normal/abnor mal. Lab Interpretation (test Abnormal code = 91274-2) [facility] with platelet count + automated xpbv4851-42-71 15:24:09 Test Item Value Reference Range Interpretation Comments WBC (test code = 6690-2) 16.2 See_Comment H [A utomated message] The system [employer] generated this result transmitted ref erence range: 3.5 - 10 .5 K/L. The refe rence range was not u sed to interpret this result as normal/abnor mal. RBC (test code = 789-8) 3.33 See_Comment L [Au tomated message] The system [employer] generated this result transmitted ref erence range: 3.93 - 5 .22 M/L. The refe rence range was not u sed to interpret this result as normal/abnor mal. MCHC (test code = 786-4) 31.8 See_Comment L [A utomated message] The system [employer] generated this result transmitted ref erence range: [...] L [Aut omated message] 777-3) The system [employer] generated this result transmitted ref erence range: 150 - 45 0 K/CU MM. The referen ce range was not u sed to interpret this result as normal/abnor mal. MPV (test code = 10.3 fL 9.4-12.3 54007-2) nRBC (test code = 413) 0 See_Comment [Aut omated message] The system [employer] generated this result transmitted ref erence range: 0 - 0 /1 00 WBC. The refere nce range was not u sed to interpret this result as normal/abnor mal. Lab Interpretation (test Abnormal code = 80409-4) [facility] W/PLT COUNT & AUTO PDNLNYEQBKQR0538-29-26 15:24:09 Test Item Value Reference Range Interpretation [...] (BEAKER) (test code = 413) Hemoglobin and mpaaxxldof4447-99-76 15:23:11 Test Item Value Reference Range Interpretation Comments Hemoglobin (test code = 10.0 See_Comment L [Au tomated message] 786-4) The system [employer] generated this result transmitted ref erence range: 11.2 - 1 5.7 GM/DL. The refe rence range was not u sed to interpret this result as normal/abnor mal. Hematocrit (test code = 31.4 % 34.1-44.9 L 4544-3) Lab Interpretation (test Abnormal code = 97271-6) [facility]MO[facility] AND HAYNPHHBXO8907-64-31 15:23:11 Test Item Value Reference Range Interpretation Comments HEMOGLOBIN (BEAKER) (test code = 10.0 GM/DL 11.2-15.7 L 410) HEMATOCRIT (BEAKER) (test code = 31.4 % 34.1-44.9 L 411) BLOOD GAS, [id number] 15:19:54 Test Item Value Reference Range Interpretation [...] = 1819) 75.0 HGB/HCT (H&H) - STAT [id number] 15:19:53 Test Item Value Reference Range Interpretation Comments HEMOGLOBIN (BEAKER) (test code = 10.6 GM/DL 12.0-15.0 L 410) HEMATOCRIT (BEAKER) (test code = 31.0 % 36.0-45.0 L 411) GLUCOSE-STAT [id number] 15:19:46 Test Item Value Reference Range Interpretation Comments GLUCOSE RANDOM (BEAKER) (test code 200 mg/dL 70-110 H = 652) OXYGEN SATURATION, XDEEKYIE1240-07-12 15:18:32 Test Item Value Reference Range Interpretation Comments O2 SATURATION (MEASURED) (BEAKER) 83.4 % (test code = 1455) POTASSIUM-STAT [id number] 15:18:10 Test Item Value Reference Range Interpretation Comments POTASSIUM (BEAKER) (test code = 4.5 meq/L 3.6-5.5 379) SODIUM NA-STAT [id number] 15:18:09 Test Item Value Reference Range Interpretation Comments SODIUM (BEAKER) (test code = 381) 136 meq/L 136-145 CALCIUM, [id number] 15:18:08 Test Item Value Reference Range Interpretation Comments CALCIUM IONIZED (BEAKER) (test 1.14 mmol/L 1.12-1.27 code = 698) PH, BLOOD (BEAKER) (test code = 7.39 1810) POC ACTIVATED CLOTTING [id number] 14:20:47 Test Item Value Reference Range Interpretation Comments Activated Clotting Time 130 sec : 74 -137 seconds, (test code = 441) Baseline: TESTED AT [address], [address]: Bead Wrapper/Techni kelle ID = [id number] for Rocky Danielle DIANE [facility] ACTIVATED CLOTTING [id number] 14:20:47 Test Item Value Reference Range Interpretation Comments Activated Clotting Time 130 sec : 74 -137 seconds, (test code = 441) Baseline: TESTED AT [facility] [address] [place] [address], [address]: Bead Wrapper/Techni kelle ID = [id number] for Me ndoza, Rocky CONTRERAS [facility] ACTIVATED CLOTTING [id number] 14:20:47 Test Item Value Reference Range Interpretation Comments Activated Clotting Time 130 sec : 74 -137 seconds, (test code = 441) Baseline: TESTED AT [address], [address]: Bead Wrapper/Techni kelle ID = [id number] for Me ndoza, Rocky CONTRERAS [facility] ACTIVATED CLOTTING [id number] 14:20:47 Test Item Value Reference Range Interpretation Comments Activated Clotting Time 130 sec : 74 -137 seconds, (test code = 441) Baseline: TESTED AT [address], [address]: Bead Wrapper/Techni kelle ID = [id number] for Me ndoza, Rocky CONTRERAS [facility] ACTIVATED CLOTTING [id number] 14:20:47 Test Item Value Reference Range Interpretation Comments Activated Clotting Time 130 sec : 74 -137 seconds, (test code = 441) Baseline: TESTED AT [address], [address]: Bead Wrapper/Techni kelle ID = [id number] for Me ndoza, Rocky CONTRERAS [facility] ACTIVATED CLOTTING [id number] 14:20:47 Test Item Value Reference Range Interpretation Comments Activated Clotting Time 130 sec : 74 -137 seconds, (test code = 441) Baseline: TESTED AT [address], [address]: Bead Wrapper/Techni kelle ID = [id number] for Me ndoza, Rocky CONTRERAS [facility] ACTIVATED CLOTTING [id number] 14:20:47 Test Item Value Reference Range Interpretation Comments Activated Clotting Time 130 sec : 74 -137 seconds, (test code = 441) Baseline: TESTED AT [address], [address]: Bead Wrapper/Techni kelle ID = [id number] for Me ndoza, Rocky CONTRERAS [facility] ACTIVATED CLOTTING [id number] 14:20:47 Test Item Value Reference Range Interpretation Comments Activated Clotting Time 130 sec : 74 -137 seconds, (test code = 441) Baseline: TESTED AT [address], [address]: Bead Wrapper/Techni kelle ID = [id number] for Me ndoza, Rocky CONTRERAS [facility] ACTIVATED CLOTTING [id number] 14:20:47 Test Item Value Reference Range Interpretation Comments Activated Clotting Time 130 sec : 74 -137 seconds, (test code = 441) Baseline: TESTED AT [address], [address]: Bead Wrapper/Techni kelle ID = [id number] for Me ndoza, Rocky CONTRERAS [facility] ACTIVATED CLOTTING [id number] 14:20:47 Test Item Value Reference Range Interpretation Comments Activated Clotting Time 130 sec : 74 -137 seconds, (test code = 441) Baseline: TESTED AT [address], [address]: Bead Wrapper/Techni kelle ID = [id number] for Me ndoza, Rocky CONTRERAS [facility] ACTIVATED CLOTTING [id number] 14:20:47 Test Item Value Reference Range Interpretation Comments Activated Clotting Time 130 sec : 74 -137 seconds, (test code = 441) Baseline: TESTED AT [address], [address]: Bead Wrapper/Techni kelle ID = [id number] for Me ndoza, Rocky CONTRERAS [facility] ACTIVATED CLOTTING [id number] 14:20:47 Test Item Value Reference Range Interpretation Comments Activated Clotting Time 130 sec : 74 -137 seconds, (test code = 441) Baseline: TESTED AT [address], [address]: Bead Wrapper/Techni kelle ID = [id number] for Me ndoza, Rocky CONTRERAS [facility] ACTIVATED CLOTTING [id number] 14:20:47 Test Item Value Reference Range Interpretation Comments Activated Clotting Time 130 sec : 74 -137 seconds, (test code = 441) Baseline: TESTED AT [address], [address] 30: Bead Wrapper/Techni kelle ID = [id number] for Me ndoza, Rocky CONTRERAS [facility] ACTIVATED CLOTTING [id number] 14:20:47 Test Item Value Reference Range Interpretation Comments Activated Clotting Time 130 sec : 74 -137 seconds, (test code = 441) Baseline: TESTED AT [address], [address] 30: Bead Wrapper/Techni kelle ID = [id number] for Me ndoza, [id number] 14:20:47 Test Item Value Reference Range Interpretation Comments ACTIVATED CLOTTING TIME 130 sec : 74 -137 seconds, (BEAKER) (test code = Baseli ne: TESTED AT 441) [address], [address] 30: Bead Wrapper/Techni kelle ID = [id number] for Me ndoza, Rocky [id number] 14:20:46 Test Item Value Reference Range Interpretation Comments ACTIVATED CLOTTING TIME 577 sec : 74 -137 seconds, (BEAKER) (test code = Baseli ne: TESTED AT 441) [address], [address] 30: Bead Wrapper/Techni kelle ID = [id number] for Me ndoza, Rocky [id number] 14:20:45 Test Item Value Reference Range Interpretation Comments ACTIVATED CLOTTING TIME 743 sec : 74 -137 seconds, (BEAKER) (test code = Baseli ne: TESTED AT 441) [address], [facility] 30: Bead Wrapper/Techni kelle ID = [id number] for Me ndoza, Rocky [id number] 14:20:45 Test Item Value Reference Range Interpretation Comments ACTIVATED CLOTTING TIME 618 sec : 74 -137 seconds, (BEAKER) (test code = Baseli ne: TESTED AT 441) [address], [facility] 30: Bead Wrapper/Techni kelle ID = [id number] for Me ndoza, Rocky [id number] 14:20:44 Test Item Value Reference Range Interpretation Comments ACTIVATED CLOTTING TIME 547 sec : 74 -137 seconds, (BEAKER) (test code = Baseli ne: TESTED AT 441) [address], [address] 30: Bead Wrapper/Techni kelle ID = [id number] for Me ndoza, Rocky [id number] 14:20:12 Test Item Value Reference Range Interpretation Comments ACTIVATED CLOTTING TIME 809 sec : 74 -137 seconds, (BEAKER) (test code = Baseli ne: TESTED AT 441) [address], [facility] 30: Bead Wrapper/Techni kelle ID = [id number] for Me ndoza, Rocky [id number] 13:49:05 Test Item Value Reference Range Interpretation Comments PARTIAL THROMBOPLASTIN TIME 38.3 seconds 22.5-36.0 H (BEAKER) (test code = 760) [id number] 13:48:43 Test Item Value Reference Range Interpretation Comments Fibrinogen (test code = 3255-7) 246 mg/dl 225-434 Lab Interpretation (test code = Normal 71102-1) [facility]43 Test Item Value Reference Range Interpretation Comments Fibrinogen (test code = 3255-7) 246 mg/dl 225-434 Lab Interpretation (test code = Normal 96322-1) [facility] 13:48:43 Test Item Value Reference Range Interpretation Comments Fibrinogen (test code = 3255-7) 246 mg/dl 225-434 Lab Interpretation (test code = Normal 72671-6) [facility] 13:48:43 Test Item Value Reference Range Interpretation Comments Fibrinogen (test code = 3255-7) 246 mg/dl 225-434 Lab Interpretation (test code = Normal 36851-4) [facility] 13:48:43 Test Item Value Reference Range Interpretation Comments Fibrinogen (test code = 3255-7) 246 mg/dl 225-434 Lab Interpretation (test code = Normal 54546-8) [facility] 13:48:43 Test Item Value Reference Range Interpretation Comments Fibrinogen (test code = 3255-7) 246 mg/dl 225-434 Lab Interpretation (test code = Normal 07232-4) [facility] 13:48[facility]43 Test Item Value Reference Range Interpretation Comments Fibrinogen (test code = 3255-7) 246 mg/dl 225-434 Lab Interpretation (test code = Normal 28142-5) [facility] 13:48:43 Test Item Value Reference Range Interpretation Comments Fibrinogen (test code = 3255-7) 246 mg/dl 225-434 Lab Interpretation (test code = Normal 57277-7) [facility] 13:48:43 Test Item Value Reference Range Interpretation Comments Fibrinogen (test code = 3255-7) 246 mg/dl 225-434 Lab Interpretation (test code = Normal 04662-9) [facility] 13:48:43 Test Item Value Reference Range Interpretation Comments Fibrinogen (test code = 3255-7) 246 mg/dl 225-434 Lab Interpretation (test code = Normal 04645-3) [facility]2022-03-17 13:48:43 Test Item Value Reference Range Interpretation Comments Fibrinogen (test code = 3255-7) 246 mg/dl 225-434 Lab Interpretation (test code = Normal 07909-4) [facility] 13:48:43 Test Item Value Reference Range Interpretation Comments Fibrinogen (test code = 3255-7) 246 mg/dl 225-434 Lab Interpretation (test code = Normal 28108-8) [facility]2022-03-17 13:48:43 Test Item Value Reference Range Interpretation Comments Fibrinogen (test code = 3255-7) 246 mg/dl 225-434 Lab Interpretation (test code = Normal 14577-7) [facility] 13:48:43 Test Item Value Reference Range Interpretation Comments Fibrinogen (test code = 3255-7) 246 mg/dl 225-434 Lab Interpretation (test code = Normal 46936-1) [facility]2022-03-17 13:48:43 Test Item Value Reference Range Interpretation Comments FIBRINOGEN LEVEL (BEAKER) (test 246 mg/dl 225-434 code = 658) PROTHROMBIN TIME/[id number] 13:48:05 Test Item Value Reference Range Interpretation Comments PROTIME (BEAKER) 19.5 seconds 11.9-14.2 H (test code = 759) INR (BEAKER) (test 1.67 See_Comment [Automat ed message] code = 370) The system [employer] generated this result transmitted ref erence range: <=5.90. The reference range was not used to int erpret this result as normal/abnormal . RECOMMENDED COUMADIN/WARFARIN INR THERAPY RANGESSTANDARD DOSE: 2.0 - 3.0 Includes: PROPHYLAXIS for venous thrombosis, systemic embolization; TREATMENT for venous thrombosis and/or pulmonary embolus.HIGH RISK: Target INR is 2.5-3.5 for patients with mechanical heart valves.Platelet [id number] 13:39:36 Test Item Value Reference Range Interpretation Comments Platelets (test code 133 See_Comment L [Autom ated = 777-3) message] The system which generated this result transmit levi reference range : 150 - 450 K/CU MM. The reference range was not u sed to interpret th is result as normal/abnormal . BRANDI (test code = BRANDI) Bead Wrapper ID - [id number] Lab Interpretation Abnormal (test code = 16046-6) [facility] [id number] 13:39:36 Test Item Value Reference Range Interpretation Comments Platelets (test code 133 See_Comment L [Autom ated = 777-3) message] The system which generated this result transmit levi reference range : 150 - 450 K/CU MM. The reference range was not u sed to interpret th is result as normal/abnormal . BRANDI (test code = BRANDI) Bead Wrapper ID - [id number] Lab Interpretation Abnormal (test code = 32940-4) [facility] [id number] 13:39:36 Test Item Value Reference Range Interpretation Comments Platelets (test code 133 See_Comment L [Autom ated = 777-3) message] The system which generated this result transmit levi reference range : 150 - 450 K/CU MM. The reference range was not u sed to interpret th is result as normal/abnormal . BRANDI (test code = BRANDI) Bead Wrapper ID - [id number] Lab Interpretation Abnormal (test code = 21061-4) [facility] [id number] 13:39:36 Test Item Value Reference Range Interpretation Comments Platelets (test code 133 See_Comment L [Autom ated = 777-3) message] The system which generated this result transmit levi reference range : 150 - 450 K/CU MM. The reference range was not u sed to interpret th is result as normal/abnormal . BRANDI (test code = BRANDI) Bead Wrapper ID - [id number] Lab Interpretation Abnormal (test code = 28546-5) [facility] [id number] 13:39:36 Test Item Value Reference Range Interpretation Comments Platelets (test code 133 See_Comment L [Autom ated = 777-3) message] The system which generated this result transmit levi reference range : 150 - 450 K/CU MM. The reference range was not u sed to interpret th is result as normal/abnormal . BRANDI (test code = BRANDI) Bead Wrapper ID - [id number] Lab Interpretation Abnormal (test code = 79249-5) [facility] [id number] 13:39:36 Test Item Value Reference Range Interpretation Comments Platelets (test code 133 See_Comment L [Autom ated = 777-3) message] The system which generated this result transmit levi reference range : 150 - 450 K/CU MM. The reference range was not u sed to interpret th is result as normal/abnormal . BRANDI (test code = BRANDI) Bead Wrapper ID - [id number] Lab Interpretation Abnormal (test code = 99029-8) [facility] [id number] 13:39:36 Test Item Value Reference Range Interpretation Comments Platelets (test code 133 See_Comment L [Autom ated = 777-3) message] The system which generated this result transmit levi reference range : 150 - 450 K/CU MM. The reference range was not u sed to interpret th is result as normal/abnormal . BRANDI (test code = BRANDI) Bead Wrapper ID - [id number] Lab Interpretation Abnormal (test code = 49252-6) [facility] [id number] 13:39:36 Test Item Value Reference Range Interpretation Comments Platelets (test code 133 See_Comment L [Autom ated = 777-3) message] The system which generated this result transmit levi reference range : 150 - 450 K/CU MM. The reference range was not u sed to interpret th is result as normal/abnormal . BRANDI (test code = BRANDI) Bead Wrapper ID - [id number] Lab Interpretation Abnormal (test code = 60490-1) [facility] [id number] 13:39:36 Test Item Value Reference Range Interpretation Comments Platelets (test code 133 See_Comment L [Autom ated = 777-3) message] The system which generated this result transmit levi reference range : 150 - 450 K/CU MM. The reference range was not u sed to interpret th is result as normal/abnormal . BRANDI (test code = BRANDI) Bead Wrapper ID - [id number] Lab Interpretation Abnormal (test code = 57260-5) [facility] [id number] 13:39:36 Test Item Value Reference Range Interpretation Comments Platelets (test code 133 See_Comment L [Autom ated = 777-3) message] The system which generated this result transmit levi reference range : 150 - 450 K/CU MM. The reference range was not u sed to interpret th is result as normal/abnormal . BRANDI (test code = BRANDI) Bead Wrapper ID - [id number] Lab Interpretation Abnormal (test code = 03023-6) [facility] [id number] 13:39:36 Test Item Value Reference Range Interpretation Comments Platelets (test code 133 See_Comment L [Autom ated = 777-3) message] The system which generated this result transmit levi reference range : 150 - 450 K/CU MM. The reference range was not u sed to interpret th is result as normal/abnormal . BRANDI (test code = BRANDI) Bead Wrapper ID - [id number] Lab Interpretation Abnormal (test code = 09781-6) [facility] [id number] 13:39:36 Test Item Value Reference Range Interpretation Comments Platelets (test code 133 See_Comment L [Autom ated = 777-3) message] The system which generated this result transmit levi reference range : 150 - 450 K/CU MM. The reference range was not u sed to interpret th is result as normal/abnormal . BRANDI (test code = BRANDI) Bead Wrapper ID - [id number] Lab Interpretation Abnormal (test code = 44044-5) [facility] [id number] 13:39:36 Test Item Value Reference Range Interpretation Comments Platelets (test code 133 See_Comment L [Autom ated = 777-3) message] The system which generated this result transmit levi reference range : 150 - 450 K/CU MM. The reference range was not u sed to interpret th is result as normal/abnormal . BRANDI (test code = BRANDI) Bead Wrapper ID - [id number] Lab Interpretation Abnormal (test code = 27726-1) [facility] [id number] 13:39:36 Test Item Value Reference Range Interpretation Comments Platelets (test code 133 See_Comment L [Autom ated = 777-3) message] The system which generated this result transmit levi reference range : 150 - 450 K/CU MM. The reference range was not u sed to interpret th is result as normal/abnormal . BRANDI (test code = BRANDI) Bead Wrapper ID - [id number] Lab Interpretation Abnormal (test code = 35102-7) [facility] [id number] 13:39:36 Test Item Value Reference Range Interpretation Comments PLATELET COUNT (BEAKER) (test 133 K/CU MM 150-450 L code = 756) Bead Wrapper ID - [id number]/HCT (H&H) - STAT [id number] 13:26:47 Test Item Value Reference Range Interpretation Comments HEMOGLOBIN (BEAKER) (test code = 7.4 GM/DL 12.0-15.0 L 410) HEMATOCRIT (BEAKER) (test code = 22.0 % 36.0-45.0 L 411) GLUCOSE-STAT [id number] 13:26:46 Test Item Value Reference Range Interpretation Comments GLUCOSE RANDOM (BEAKER) (test code 199 mg/dL 70-110 H = 652) SODIUM NA-STAT [id number] 13:26:46 Test Item Value Reference Range Interpretation Comments SODIUM (BEAKER) (test code = 381) 134 meq/L 136-145 L CALCIUM, [id number] 13:26:40 Test Item Value Reference Range Interpretation Comments CALCIUM IONIZED (BEAKER) (test 1.03 mmol/L 1.12-1.27 L code = 698) PH, BLOOD (BEAKER) (test code = 7.33 1810) BLOOD GAS, [id number] 13:26:34 Test Item Value Reference Range Interpretation [...] (BEAKER) (test code = 1819) 100.0 POTASSIUM-STAT [id number] 13:24:59 Test Item Value Reference Range Interpretation Comments POTASSIUM (BEAKER) (test code = 4.5 meq/L 3.6-5.5 379) PLATELET [id number] 13:18:08 Test Item Value Reference Range Interpretation Comments PLATELET COUNT (BEAKER) (test code 53 K/CU MM 150-450 L = 756) Bead Wrapper ID - [id number] ID - [id number] ID - [id number] 12:53:55 Test Item Value Reference Range Interpretation Comments PARTIAL THROMBOPLASTIN TIME > seconds 22.5-36.0 HH (BEAKER) (test code = 760) [id number] 12:36:04 Test Item Value Reference Range Interpretation Comments FIBRINOGEN LEVEL (BEAKER) (test 289 mg/dl 225-434 code = 658) PROTHROMBIN TIME/[id number] 12:35:28 Test Item Value Reference Range Interpretation Comments PROTIME (BEAKER) 25.4 seconds 11.9-14.2 H (test code = 759) INR (BEAKER) (test 2.35 See_Comment [Automat ed message] code = 370) The system [employer] generated this result transmitted ref erence range: <=5.90. The reference range was not used to int erpret this result as normal/abnormal . RECOMMENDED COUMADIN/WARFARIN INR THERAPY RANGESSTANDARD DOSE: 2.0 - 3.0 Includes: PROPHYLAXIS for venous thrombosis, systemic embolization; TREATMENT for venous thrombosis and/or pulmonary embolus.HIGH RISK: Target INR is 2.5-3.5 for patients with mechanical heart valves.HGB/HCT (H&H) - STAT [id number] 12:28:06 Test Item Value Reference Range Interpretation Comments HEMOGLOBIN (BEAKER) (test code = 9.3 GM/DL 12.0-15.0 L 410) HEMATOCRIT (BEAKER) (test code = 27.0 % 36.0-45.0 L 411) SODIUM NA-STAT [id number] 12:28:05 Test Item Value Reference Range Interpretation Comments SODIUM (BEAKER) (test code = 381) 133 meq/L 136-145 L GLUCOSE-STAT [id number] 12:28:05 Test Item Value Reference Range Interpretation Comments GLUCOSE RANDOM (BEAKER) (test code 189 mg/dL 70-110 H = 652) BLOOD GAS, [id number] 12:28:04 Test Item Value Reference Range Interpretation [...] (BEAKER) (test code = 1819) 75.0 POTASSIUM-STAT [id number] 12:27:48 Test Item Value Reference Range Interpretation Comments POTASSIUM (BEAKER) (test code = 5.5 meq/L 3.6-5.5 379) BLOOD GAS, [id number] 11:48:59 Test Item Value Reference Range Interpretation [...] (BEAKER) (test code = 1819) 70.0 GLUCOSE-STAT [id number] 11:47:10 Test Item Value Reference Range Interpretation Comments GLUCOSE RANDOM (BEAKER) (test code 186 mg/dL 70-110 H = 652) HGB/HCT (H&H) - STAT [id number] 11:47:10 Test Item Value Reference Range Interpretation Comments HEMOGLOBIN (BEAKER) (test code = 8.9 GM/DL 12.0-15.0 L 410) HEMATOCRIT (BEAKER) (test code = 26.0 % 36.0-45.0 L 411) SODIUM NA-STAT [id number] 11:47:09 Test Item Value Reference Range Interpretation Comments SODIUM (BEAKER) (test code = 381) 133 meq/L 136-145 L POTASSIUM-STAT [id number] 11:46:29 Test Item Value Reference Range Interpretation Comments POTASSIUM (BEAKER) (test code = 5.3 meq/L 3.6-5.5 379) HGB/HCT (H&H) - STAT [id number] 11:17:46 Test Item Value Reference Range Interpretation Comments HEMOGLOBIN (BEAKER) (test code = 9.6 GM/DL 12.0-15.0 L 410) HEMATOCRIT (BEAKER) (test code = 28.0 % 36.0-45.0 L 411) SODIUM NA-STAT [id number] 11:17:45 Test Item Value Reference Range Interpretation Comments SODIUM (BEAKER) (test code = 381) 133 meq/L 136-145 L BLOOD GAS, [id number] 11:17:39 Test Item Value Reference Range Interpretation [...] (BEAKER) (test code = 1819) 70.0 GLUCOSE-STAT [id number] 11:17:39 Test Item Value Reference Range Interpretation Comments GLUCOSE RANDOM (BEAKER) (test code 171 mg/dL 70-110 H = 652) POTASSIUM-STAT [id number] 11:17:36 Test Item Value Reference Range Interpretation Comments POTASSIUM (BEAKER) (test code = 5.1 meq/L 3.6-5.5 379) HGB/HCT (H&H) - STAT [id number] 10:50:26 Test Item Value Reference Range Interpretation Comments HEMOGLOBIN (BEAKER) (test code = 8.4 GM/DL 12.0-15.0 L 410) HEMATOCRIT (BEAKER) (test code = 25.0 % 36.0-45.0 L 411) SODIUM NA-STAT [id number] 10:50:25 Test Item Value Reference Range Interpretation Comments SODIUM (BEAKER) (test code = 381) 133 meq/L 136-145 L GLUCOSE-STAT [id number] 10:50:25 Test Item Value Reference Range Interpretation Comments GLUCOSE RANDOM (BEAKER) (test code 134 mg/dL 70-110 H = 652) BLOOD GAS, [id number] 10:50:24 Test Item Value Reference Range Interpretation [...] (BEAKER) (test code = 1819) 100.0 POTASSIUM-STAT [id number] 10:49:45 Test Item Value Reference Range Interpretation Comments POTASSIUM (BEAKER) (test code = 3.8 meq/L 3.6-5.5 379) Hemoglobin [id number] 09:30:26 Test Item Value Reference Range Interpretation [...] ADM Lab Interpretation Abnormal (test code = 06176-2) [facility] [id number] 09:30:26 Test Item Value Reference Range Interpretation [...] ADM Lab Interpretation Abnormal (test code = 80086-2) [facility] [id number] 09:30:26 Test Item Value Reference Range Interpretation [...] ADM Lab Interpretation Abnormal (test code = 18287-6) [facility] [id number] 09:30:26 Test Item Value Reference Range Interpretation [...] ADM Lab Interpretation Abnormal (test code = 78875-6) [facility] [id number] 09:30:26 Test Item Value Reference Range Interpretation [...] ADM Lab Interpretation Abnormal (test code = 67815-8) [facility] [id number] 09:30:26 Test Item Value Reference Range Interpretation [...] ADM Lab Interpretation Abnormal (test code = 64954-6) [facility] [id number] 09:30:26 Test Item Value Reference Range Interpretation [...] ADM Lab Interpretation Abnormal (test code = 88911-1) [facility] [id number] 09:30:26 Test Item Value Reference Range Interpretation [...] ADM Lab Interpretation Abnormal (test code = 85039-9) [facility] [id number] 09:30:26 Test Item Value Reference Range Interpretation [...] ADM Lab Interpretation Abnormal (test code = 56495-0) [facility] [id number] 09:30:26 Test Item Value Reference Range Interpretation [...] ADM Lab Interpretation Abnormal (test code = 24653-3) [facility] [id number] 09:30:26 Test Item Value Reference Range Interpretation [...] ADM Lab Interpretation Abnormal (test code = 13350-3) [facility] [id number] 09:30:26 Test Item Value Reference Range Interpretation [...] ADM Lab Interpretation Abnormal (test code = 85460-6) [facility] [id number] 09:30:26 Test Item Value Reference Range Interpretation [...] ADM Lab Interpretation Abnormal (test code = 29386-5) [facility] [id number] 09:30:26 Test Item Value Reference Range Interpretation [...] ADM Lab Interpretation Abnormal (test code = 55412-1) [facility] [id number] 09:30:26 Test Item Value Reference Range Interpretation [...] 5.7- 6.4% indicates increased risk for diabetes (prediabetes)."Bead Wrapper ID - ADM HGB/HCT (H&H) - STAT [id number] 09:13:03 Test Item Value Reference Range Interpretation Comments HEMOGLOBIN (BEAKER) (test code = 9.0 GM/DL 12.0-15.0 L 410) HEMATOCRIT (BEAKER) (test code = 26.0 % 36.0-45.0 L 411) SODIUM NA-STAT [id number] 09:13:02 Test Item Value Reference Range Interpretation Comments SODIUM (BEAKER) (test code = 381) 134 meq/L 136-145 L GLUCOSE-STAT [id number] 09:13:02 Test Item Value Reference Range Interpretation Comments GLUCOSE RANDOM (BEAKER) (test code 112 mg/dL 70-110 H = 652) BLOOD GAS, [id number] 09:13:01 Test Item Value Reference Range Interpretation [...] (BEAKER) (test code = 1819) 100.0 CALCIUM, [id number] 09:13:00 Test Item Value Reference Range Interpretation Comments CALCIUM IONIZED (BEAKER) (test 1.09 mmol/L 1.12-1.27 L code = 698) PH, BLOOD (BEAKER) (test code = 7.46 1810) POTASSIUM-STAT [id number] 09:12:15 Test Item Value Reference Range Interpretation Comments POTASSIUM (BEAKER) (test code = 3.7 meq/L 3.6-5.5 379) BASIC METABOLIC [id number] 07:11:03 Test Item Value Reference Range Interpretation [...] S NOT APPLICABLE FOR DIALYSIS PATIEN TS. Bead Wrapper ID - HIEN [id number] 06:29:42 Test Item Value Reference Range Interpretation Comments PHOSPHORUS (BEAKER) (test code = 4.7 mg/dL 2.3-4.7 604) Bead Wrapper ID - HIEN [id number] 06:29:41 Test Item Value Reference Range Interpretation Comments MAGNESIUM (BEAKER) (test code = 2.0 mg/dL 1.6-2.6 627) Bead Wrapper ID - HIEN MCBC W/PLT COUNT & AUTO [id number] 06:04:09 Test Item Value Reference Range Interpretation [...] code = 2801) RAD, ABDOMEN/KUB, 1 VIEW [id number] 02:55:00Reason for exam:->abdominal painCHILDREN'S [facility]GOName: JAK MERRILL : 1955 Sex: FFINAL REPORT [...] Quintero MDReport Verified Date/Time: 06/18/2021 02:55:15 POCT-GLUCOSE [id number] 21:39:12 Test Item Value Reference Range Interpretation Comments POC-GLUCOSE METER 135 mg/dL 70-110 H : TESTED A T [facility] 6720 (BEAKER) (test code = [place], 1538) [address]: Bead Wrapper/Techni kelle ID = [id number] for Eliezer Jerome HEMOGLOBIN AND [id number] 21:31:20 Test Item Value Reference Range Interpretation Comments HEMOGLOBIN (BEAKER) (test code = 6.9 GM/DL 11.2-15.7 L 410) HEMATOCRIT (BEAKER) (test code = 21.8 % 34.1-44.9 L 411) Bead Wrapper ID - [id number] ID - [id number], [id number] 18:33:00Unlisted Reason for Exam - Click Yes and Enter Reason Below->NoIs this for enterography?->NoPlease specify:->Renal Stone Protocolalso look for spleen if there is any infarct causing left flankpainWill this procedure require oral contrast?->NoCHILDREN[facility]GOName: JAK MERRILL : 1955 Sex: FFINAL REPORT [...] MDReport Verified Date/Time: 06/17/2021 18:33:28 Reading Location: [address] Reading Room Comprehensive metabolic [id number] 16:18:22 Test Item Value Reference Range Interpretation Comments Protein, Total (test 7.0 See_Comment [Autom ated code = 2885-2) message] The system which generated this result transmit levi reference range : 6.0 - 8.3 gm/dL . The reference range was not u sed to interpret th is result as normal/abnormal . Albumin (test code = 2.7 g/dL 3.5-5.0 L 11879-5) Alkaline Phosphatase 99 U/L 40-150 (test code = 6768-6) Total Bilirubin (test 0.4 mg/dL 0.2-1.2 code = 1974-2) Sodium (test code = 135 meq/L 136-145 L 2951-2) Potassium (test code 3.7 meq/L 3.5-5.1 = 2823-3) Chloride (test code = 100 meq/L 98-107 2074-0) CO2 (test code = 29 meq/L -29 2027-) BUN (test code = 17 mg/dL 7- 3094-0) Creatinine (test code 4.22 mg/dL 0.57-1.25 H = 2160-0) Glucose (test code = 109 mg/dL 70-105 H 2345-7) Calcium (test code = 8.4 mg/dL 8.4-10.2 78855-6) AST (test code = 17 U/L 0-8) ALT (test code = 10 U/L 2-6) EGFR (test code = 11 mL/min/1.[place] [address]-9) NOT ACCURATE CREATININE CLEARANCE IN PREDICTING GLOMERULAR FILTRATION RATE . ESTIMATED GFR I S NOT APPLICABLE FOR DIALYSIS PATIEN BRANDI (test code = BRANDI) Bead Wrapper ID - BS Lab Interpretation Abnormal (test code = 34840-2) [facility] [id number] 16:18:22 Test Item Value Reference Range Interpretation Comments Protein, Total (test 7.0 See_Comment [Autom ated code = 2885-2) message] The system which generated this result transmit levi reference range : 6.0 - 8.3 gm/dL . The reference range was not u sed to interpret th is result as normal/abnormal . Albumin (test code = 2.7 g/dL 3.5-5.0 L 29926-3) Alkaline Phosphatase 99 U/L 40-150 (test code [...] Calcium (test code = 8.4 mg/dL 8.4-10.2 10885-2) AST (test code = 17 U/L -0-8) ALT (test code = 10 U/L 2-6) EGFR (test code = 11 mL/min/1.[place] [address]-7) NOT ACCURATE CREATININE CLEARANCE IN PREDICTING GLOMERULAR FILTRATION RATE . ESTIMATED GFR I S NOT APPLICABLE FOR DIALYSIS PATIEN TSEsvin BRANDI (test code = BRANDI) Bead Wrapper ID - BS Lab Interpretation Abnormal (test code = 12034-6) [facility] [id number] 16:18:22 Test Item Value Reference Range Interpretation Comments Protein, Total (test 7.0 See_Comment [Autom ated code = 2885-2) message] The system which generated this result transmit levi reference range : 6.0 - 8.3 gm/dL . The reference range was not u sed to interpret th is result as normal/abnormal . Albumin (test code = 2.7 g/dL 3.5-5.0 L 42290-4) Alkaline Phosphatase 99 U/L 40-150 (test code [...] Calcium (test code = 8.4 mg/dL 8.4-10.2 52234-7) AST (test code = 17 U/L 5-34 1920-8) ALT (test code = 10 U/L 6-55 1742-6) EGFR (test code = 11 mL/min/1.[place] [address]-2) NOT ACCURATE CREATININE CLEARANCE IN PREDICTING GLOMERULAR FILTRATION RATE . ESTIMATED GFR I S NOT APPLICABLE FOR DIALYSIS PATIEN TS. BRANDI (test code = BRANDI) Bead Wrapper ID - BS Lab Interpretation Abnormal (test code = 71795-5) [facility] [id number] 16:18:22 Test Item Value Reference Range Interpretation Comments Protein, Total (test 7.0 See_Comment [Autom ated code = 2885-2) message] The system which generated this result transmit levi reference range : 6.0 - 8.3 gm/dL . The reference range was not u sed to interpret th is result as normal/abnormal . Albumin (test code = 2.7 g/dL 3.5-5.0 L 47271-2) Alkaline Phosphatase 99 U/L 40-150 (test code [...] Calcium (test code = 8.4 mg/dL 8.4-10.2 45677-5) AST (test code = 17 U/L 5-34 1920-8) ALT (test code = 10 U/L 6-55 1742-6) EGFR (test code = 11 mL/min/1.[place] [address]-6) NOT ACCURATE CREATININE CLEARANCE IN PREDICTING GLOMERULAR FILTRATION RATE . ESTIMATED GFR I S NOT APPLICABLE FOR DIALYSIS PATIEN TS. BRANDI (test code = BRANDI) Bead Wrapper ID - BS Lab Interpretation Abnormal (test code = 64312-2) [facility] [id number] 16:18:22 Test Item Value Reference Range Interpretation Comments Protein, Total (test 7.0 See_Comment [Autom ated code = 2885-2) message] The system which generated this result transmit levi reference range : 6.0 - 8.3 gm/dL . The reference range was not u sed to interpret th is result as normal/abnormal . Albumin (test code = 2.7 g/dL 3.5-5.0 L 37168-0) Alkaline Phosphatase 99 U/L 40-150 (test code [...] Calcium (test code = 8.4 mg/dL 8.4-10.2 77680-2) AST (test code = 17 U/L 5-34 1920-8) ALT (test code = 10 U/L 6-55 1741-6) EGFR (test code = 11 mL/min/1.[place] [address]-1) NOT ACCURATE CREATININE CLEARANCE IN PREDICTING GLOMERULAR FILTRATION RATE . ESTIMATED GFR I S NOT APPLICABLE FOR DIALYSIS PATIEN BRANDI (test code = BRANDI) Bead Wrapper ID - BS Lab Interpretation Abnormal (test code = 35617-8) [facility] [id number] 16:18:22 Test Item Value Reference Range Interpretation Comments Protein, Total (test 7.0 See_Comment [Autom ated code = 2885-2) message] The system which generated this result transmit levi reference range : 6.0 - 8.3 gm/dL . The reference range was not u sed to interpret th is result as normal/abnormal . Albumin (test code = 2.7 g/dL 3.5-5.0 L 90703-5) Alkaline Phosphatase 99 U/L 40-150 (test code [...] Calcium (test code = 8.4 mg/dL 8.4-10.2 69939-8) AST (test code = 17 U/L 5-34 1920-8) ALT (test code = 10 U/L 6-55 1742-6) EGFR (test code = 11 mL/min/1.[place] [address]-7) NOT ACCURATE CREATININE CLEARANCE IN PREDICTING GLOMERULAR FILTRATION RATE . ESTIMATED GFR I S NOT APPLICABLE FOR DIALYSIS PATIEN TS. BRANDI (test code = BRANDI) Bead Wrapper ID - BS Lab Interpretation Abnormal (test code = 00484-6) [facility] [id number] 16:18:22 Test Item Value Reference Range Interpretation Comments Protein, Total (test 7.0 See_Comment [Autom ated code = 2885-2) message] The system which generated this result transmit levi reference range : 6.0 - 8.3 gm/dL . The reference range was not u sed to interpret th is result as normal/abnormal . Albumin (test code = 2.7 g/dL 3.5-5.0 L 25055-4) Alkaline Phosphatase 99 U/L 40-150 (test code [...] Calcium (test code = 8.4 mg/dL 8.4-10.2 40835-5) AST (test code = 17 U/L -34 0-8) ALT (test code = 10 U/L 1742-6) EGFR (test code = 11 mL/min/1.[place] [address]-2) NOT ACCURATE CREATININE CLEARANCE IN PREDICTING GLOMERULAR FILTRATION RATE . ESTIMATED GFR I S NOT APPLICABLE FOR DIALYSIS PATIEN BRANDI (test code = BRANDI) Bead Wrapper ID - BS Lab Interpretation Abnormal (test code = 21829-7) [facility] [id number] 16:18:22 Test Item Value Reference Range Interpretation Comments Protein, Total (test 7.0 See_Comment [Autom ated code = 2885-2) message] The system which generated this result transmit levi reference range : 6.0 - 8.3 gm/dL . The reference range was not u sed to interpret th is result as normal/abnormal . Albumin (test code = 2.7 g/dL 3.5-5.0 L 46800-5) Alkaline Phosphatase 99 U/L 40-150 (test code [...] Calcium (test code = 8.4 mg/dL 8.4-10.2 46319-8) AST (test code = 17 U/L -34 1919-8) ALT (test code = 10 U/L 1742-6) EGFR (test code = 11 mL/min/1.[place] [address]-7) NOT ACCURATE CREATININE CLEARANCE IN PREDICTING GLOMERULAR FILTRATION RATE . ESTIMATED GFR I S NOT APPLICABLE FOR DIALYSIS PATIEN TS. BRANDI (test code = BRANDI) Bead Wrapper ID - BS Lab Interpretation Abnormal (test code = 52069-0) [facility] [id number] 16:18:22 Test Item Value Reference Range Interpretation Comments Protein, Total (test 7.0 See_Comment [Autom ated code = 2885-2) message] The system which generated this result transmit levi reference range : 6.0 - 8.3 gm/dL . The reference range was not u sed to interpret th is result as normal/abnormal . Albumin (test code = 2.7 g/dL 3.5-5.0 L 11517-7) Alkaline Phosphatase 99 U/L 40-150 (test code [...] Calcium (test code = 8.4 mg/dL 8.4-10.2 24203-9) AST (test code = 17 U/L 5-34 1920-8) ALT (test code = 10 U/L 1742-6) EGFR (test code = 11 mL/min/1.[place] [address]-3) NOT ACCURATE CREATININE CLEARANCE IN PREDICTING GLOMERULAR FILTRATION RATE . ESTIMATED GFR I S NOT APPLICABLE FOR DIALYSIS PATIEN TS. BRANDI (test code = BRANDI) Bead Wrapper ID - BS Lab Interpretation Abnormal (test code = 11442-8) [facility] [id number] 16:18:22 Test Item Value Reference Range Interpretation Comments Protein, Total (test 7.0 See_Comment [Autom ated code = 2885-2) message] The system which generated this result transmit levi reference range : 6.0 - 8.3 gm/dL . The reference range was not u sed to interpret th is result as normal/abnormal . Albumin (test code = 2.7 g/dL 3.5-5.0 L 24597-9) Alkaline Phosphatase 99 U/L 40-150 (test code [...] Calcium (test code = 8.4 mg/dL 8.4-10.2 83839-8) AST (test code = 17 U/L 5-34 1920-8) ALT (test code = 10 U/L 6-55 1742-6) EGFR (test code = 11 mL/min/1.[place] [address]-4) NOT ACCURATE CREATININE CLEARANCE IN PREDICTING GLOMERULAR FILTRATION RATE . ESTIMATED GFR I S NOT APPLICABLE FOR DIALYSIS PATIEN TS. BRANDI (test code = BRANDI) Bead Wrapper ID - BS Lab Interpretation Abnormal (test code = 05777-0) [facility] [id number] 16:18:22 Test Item Value Reference Range Interpretation Comments Protein, Total (test 7.0 See_Comment [Autom ated code = 2885-2) message] The system which generated this result transmit levi reference range : 6.0 - 8.3 gm/dL . The reference range was not u sed to interpret th is result as normal/abnormal . Albumin (test code = 2.7 g/dL 3.5-5.0 L 24070-5) Alkaline Phosphatase 99 U/L 40-150 (test code [...] Calcium (test code = 8.4 mg/dL 8.4-10.2 38596-5) AST (test code = 17 U/L 5-34 1920-8) ALT (test code = 10 U/L 6-55 1742-6) EGFR (test code = 11 mL/min/1.[place] [address]-9) NOT ACCURATE CREATININE CLEARANCE IN PREDICTING GLOMERULAR FILTRATION RATE . ESTIMATED GFR I S NOT APPLICABLE FOR DIALYSIS PATIEN BRANDI (test code = BRANDI) Bead Wrapper ID - BS Lab Interpretation Abnormal (test code = 94665-1) [facility] [id number] 16:18:22 Test Item Value Reference Range Interpretation Comments Protein, Total (test 7.0 See_Comment [Autom ated code = 2885-2) message] The system which generated this result transmit levi reference range : 6.0 - 8.3 gm/dL . The reference range was not u sed to interpret th is result as normal/abnormal . Albumin (test code = 2.7 g/dL 3.5-5.0 L 03432-9) Alkaline Phosphatase 99 U/L 40-150 (test code [...] Calcium (test code = 8.4 mg/dL 8.4-10.2 71962-6) AST (test code = 17 U/L 5-34 1920-8) ALT (test code = 10 U/L 6-55 1742-6) EGFR (test code = 11 mL/min/1.[place] [address]-0) NOT ACCURATE CREATININE CLEARANCE IN PREDICTING GLOMERULAR FILTRATION RATE . ESTIMATED GFR I S NOT APPLICABLE FOR DIALYSIS PATIEN TS. BRANDI (test code = BRANDI) Bead Wrapper ID - BS Lab Interpretation Abnormal (test code = 95908-6) [facility] [id number] 16:18:22 Test Item Value Reference Range Interpretation Comments Protein, Total (test 7.0 See_Comment [Autom ated code = 2885-2) message] The system which generated this result transmit levi reference range : 6.0 - 8.3 gm/dL . The reference range was not u sed to interpret th is result as normal/abnormal . Albumin (test code = 2.7 g/dL 3.5-5.0 L 35713-2) Alkaline Phosphatase 99 U/L 40-150 (test code [...] Calcium (test code = 8.4 mg/dL 8.4-10.2 51029-4) AST (test code = 17 U/L 5-34 1920-8) ALT (test code = 10 U/L 6-55 1742-6) EGFR (test code = 11 mL/min/1.[place] [address]-2) NOT ACCURATE CREATININE CLEARANCE IN PREDICTING GLOMERULAR FILTRATION RATE . ESTIMATED GFR I S NOT APPLICABLE FOR DIALYSIS PATIEN TS. BRANDI (test code = BRANDI) Bead Wrapper ID - BS Lab Interpretation Abnormal (test code = 11888-4) [facility] [id number] 16:18:22 Test Item Value Reference Range Interpretation Comments Protein, Total (test 7.0 See_Comment [Autom ated code = 2885-2) message] The system which generated this result transmit levi reference range : 6.0 - 8.3 gm/dL . The reference range was not u sed to interpret th is result as normal/abnormal . Albumin (test code = 2.7 g/dL 3.5-5.0 L 49887-7) Alkaline Phosphatase 99 U/L 40-150 (test code [...] Calcium (test code = 8.4 mg/dL 8.4-10.2 06253-3) AST (test code = 17 U/L 5-34 1920-8) ALT (test code = 10 U/L 6-55 1742-6) EGFR (test code = 11 mL/min/1.[place] [address]-7) NOT ACCURATE CREATININE CLEARANCE IN PREDICTING GLOMERULAR FILTRATION RATE . ESTIMATED GFR I S NOT APPLICABLE FOR DIALYSIS PATIEN TS. BRANDI (test code = BRANDI) Bead Wrapper ID - BS Lab Interpretation Abnormal (test code = 12111-8) [facility] [id number] 16:18:22 Test Item Value Reference Range Interpretation [...] S NOT APPLICABLE FOR DIALYSIS PATIEN TS. Bead Wrapper ID - [id number] 16:17:20 Test Item Value Reference Range Interpretation Comments MAGNESIUM (BEAKER) (test code = 1.8 mg/dL 1.6-2.6 627) Bead Wrapper ID - [id number] 16:10:37 Test Item Value Reference Range Interpretation Comments PARTIAL THROMBOPLASTIN TIME 34.5 seconds 22.5-36.0 (BEAKER) (test code = 760) PROTHROMBIN TIME/[id number] 16:10:03 Test Item Value Reference Range Interpretation Comments PROTIME (BEAKER) 17.2 seconds 11.9-14.2 H (test code = 759) INR (BEAKER) (test 1.43 See_Comment [Automat ed message] code = 370) The system [employer] generated this result transmitted ref erence range: <=5.90. The reference range was not used to int erpret this result as normal/abnormal . RECOMMENDED COUMADIN/WARFARIN INR THERAPY RANGESSTANDARD DOSE: 2.0 - 3.0 Includes: PROPHYLAXIS for venous thrombosis, systemic embolization; TREATMENT for venous thrombosis and/or pulmonary embolus.HIGH RISK: Target INR is 2.5-3.5 for patients with mechanical heart valves.CBC W/PLT COUNT & AUTO [id number] 16:01:31 Test Item Value Reference Range Interpretation [...] (BEAKER) (test code = 2801) NV, ANGIOGRAM, [id number] 09:13:00Reason for exam:->mycotic aneurysm rule outCH[facility]ame: JAK MERRILL : 1955 Sex: FFINAL REPORT DATE OF PROCEDURE: 06/16/2021 SURGEON: Mili Kent MD BOX OFFICE ATTENDANT: Eloy Portillo MD; Alisa Monae MD PREOPERATIVE DIAGNOSIS: Subarachnoid hemorrhage POST OPERATIVE DIAGNOSIS: Nonaneurysmal subarachnoid hemorrhage PROCEDURE: Diagnostic cerebral injury ANESTHESIA: Monitored anesthesia ESTIMATED BLOOD LOSS: Minimal COMPLICATIONS: None Vessels catheterized:Right common femoral arteryRight common carotid artery, cervicalRight common carotid, cerebralLeft common carotid artery, cervicalLeft common carotid, cerebralLeft vertebral artery *FEMORAL*5F sheathBentson WireVertebral CatheterTerumo Raynesford wireMynx Closure Device INDICATIONS: The patient is [...] arteries are patent. There is a right FIBERGLASS QUALITY TECHNICIAN variant anatomy. No evidence of aneurysm, vascular [...] cerebral artery is diminutive in size given FIBERGLASS QUALITY TECHNICIAN anatomy and the the left FIBERGLASS QUALITY TECHNICIAN is normal in caliber and contour. No [...] MDReport Verified Date/Time: 06/17/2021 09:13:43 Reading Location: [facility] Y026 Neuro Angio Reading Room BASIC METABOLIC [id number] 05:09:41 Test Item Value Reference Range Interpretation [...] S NOT APPLICABLE FOR DIALYSIS PATIEN TS. Bead Wrapper ID - HIEN [id number] 05:07:06 Test Item Value Reference Range Interpretation Comments MAGNESIUM (BEAKER) (test code = 2.1 mg/dL 1.6-2.6 627) Bead Wrapper ID - HIEN [id number] 05:07:06 Test Item Value Reference Range Interpretation Comments PHOSPHORUS (BEAKER) (test code = 5.7 mg/dL 2.3-4.7 H 604) Bead Wrapper ID - HIEN MCBC W/PLT COUNT & AUTO [id number] 04:38:56 Test Item Value Reference Range Interpretation [...] PERCENT (BEAKER) (test code = 2801) POCT-GLUCOSE [id number] 00:10:32 Test Item Value Reference Range Interpretation Comments POC-GLUCOSE METER 221 mg/dL 70-110 H : TESTED A T [facility] 6720 (BEAKER) (test code = [facility], 1538) [address]: Bead Wrapper/Techni kelle ID = [id number] for SHAHLA BARRY POCT-GLUCOSE [id number] 18:11:32 Test Item Value Reference Range Interpretation Comments POC-GLUCOSE METER 170 mg/dL 70-110 H : TESTED A T [facility] 6720 (BEAKER) (test code = [facility], 1538) 24352: Bead Wrapper/Techni kelle ID = [id number] for An Onelia ramirez Blood [id number] 14:00:39 Test Item Value Reference Range Interpretation Comments Result (test code = No growth in 5 days 6463-4) [facility]2022-03-15 14:00:39 Test Item Value Reference Range Interpretation Comments Result (test code = No growth in 5 days 6463-4) [facility]2022-03-15 14:00:39 Test Item Value Reference Range Interpretation Comments Result (test code = No growth in 5 days 6463-4) [facility]2022-03-15 14:00:39 Test Item Value Reference Range Interpretation Comments Result (test code = No growth in 5 days 6463-4) [place]002-03-15 14:00:39 Test Item Value Reference Range Interpretation Comments Result (test code = No growth in 5 days 6463-4) [facility]2022-03-15 14:00:39 Test Item Value Reference Range Interpretation Comments Result (test code = No growth in 5 days 6463-4) [facility]2022-03-15 14:00:39 Test Item Value Reference Range Interpretation Comments Result (test code = No growth in 5 days 6463-4) [facility]2022-03-15 14:00:39 Test Item Value Reference Range Interpretation Comments Result (test code = No growth in 5 days 6463-4) [facility]2022-03-15 14:00:39 Test Item Value Reference Range Interpretation Comments Result (test code = No growth in 5 days 6463-4) [facility]2022-03-15 14:00:39 Test Item Value Reference Range Interpretation Comments Result (test code = No growth in 5 days 6463-4) [facility]2022-03-15 14:00:39 Test Item Value Reference Range Interpretation Comments Result (test code = No growth in 5 days 6463-4) [facility]2022-03-15 14:00:39 Test Item Value Reference Range Interpretation Comments Result (test code = No growth in 5 days 6463-4) [facility] [id number] 14:00:39 Test Item Value Reference Range Interpretation Comments Result (test code = No growth in 5 days 6463-4) [facility] [id number] 14:00:39 Test Item Value Reference Range Interpretation Comments Result (test code = No growth in 5 days 6463-4) [facility] [id number] 14:00:39 Test Item Value Reference Range Interpretation Comments CULTURE (BEAKER) (test No growth in 5 days code = 1095) MR, BRAIN, WITHOUT [id number] 13:02:00Pt has [employer] ESSENTIO MRI L111/ [id number] Unlisted Reason for Exam - Click Yes and Enter Reason Below- >No Deos the patient have an implanted electronic device?->Yes [employer] ESSENTIO MRI L111/ [id number] [facility] : 1955 Sex: FFINAL REPORT [...] CSF suppression of the sulci. Signed: Bayron Cosmeeport Verified Date/Time: 06/16/2021 13:02:07 Reading Location: [facility] [id number] Neuro Reading Room D [id number] 08:00:27 Test Item Value Reference Range Interpretation Comments CULTURE (BEAKER) (test No growth in 5 days code = 1095) POCT-GLUCOSE [id number] 07:30:10 Test Item Value Reference Range Interpretation Comments POC-GLUCOSE METER 159 mg/dL 70-110 H : TESTED A T [facility] 6720 (BEAKER) (test code = [place], 1538) 27147: Bead Wrapper/Techni kelle ID = [id number] for An Onelia ramirez BASIC METABOLIC [id number] 05:42:18 Test Item Value Reference Range Interpretation [...] S NOT APPLICABLE FOR DIALYSIS PATIEN TS. Bead Wrapper ID - RAKAN [id number] 05:35:31 Test Item Value Reference Range Interpretation Comments MAGNESIUM (BEAKER) (test code = 2.1 mg/dL 1.6-2.6 627) Bead Wrapper ID Bassam [place] [id number] 05:35:31 Test Item Value Reference Range Interpretation Comments PHOSPHORUS (BEAKER) (test code = 4.5 mg/dL 2.3-4.7 604) Bead Wrapper ID Bassam [place] WCBC W/PLT COUNT & AUTO [id number] 04:43:33 Test Item Value Reference Range Interpretation [...] PERCENT (BEAKER) (test code = 2801) BLOOD [id number] 00:00:28 Test Item Value Reference Range Interpretation Comments CULTURE (BEAKER) (test No growth in 5 days code = 1095) The specimen volume collected for this blood culture was below the optimum (10 mL per bottle or 20 mL total). Use of lower volumes may adversely affect recovery and/or detection times of some organisms.POCT-GLUCOSE [id number] 21:39:58 Test Item Value Reference Range Interpretation Comments POC-GLUCOSE METER 173 mg/dL 70-110 H : Notified RN/MD: (AKASH) (test code = TESTED AT [facility] 6720 1538) [facility], [address]: Bead Wrapper/Techni kelle ID = [id number] for DE NNJANE, EMANUEL Hepatic function [id number] 15:52:11 Test Item Value Reference Range Interpretation Comments Protein, Total (test 6.8 See_Comment [Autom ated code = 2885-2) message] The system which generated this result transmit levi reference range : 6.0 - 8.3 gm/dL . The reference range was not u sed to interpret th is result as normal/abnormal . Albumin (test code = 2.6 g/dL 3.5-5.0 L 83889-8) Total Bilirubin (test 0.3 mg/dL 0.2-1.2 code = 1974-2) Bilirubin, Direct 0.2 mg/dL 0.1-0.5 (test code = 1967-7) Alkaline Phosphatase 90 U/L 40-150 (test code = 6768-6) AST (test code = 17 U/L 5-34 1920-8) ALT (test code = 11 U/L 6-55 1742-6) BRANDI (test code = BRANDI) Bead Wrapper ID - PIAYA L Lab Interpretation Abnormal (test code = 47589-8) [facility] [id number] 15:52:11 Test Item Value Reference Range Interpretation Comments Protein, Total (test 6.8 See_Comment [Autom ated code = 2885-2) message] The system which generated this result transmit levi reference range : 6.0 - 8.3 gm/dL . The reference range was not u sed to interpret th is result as normal/abnormal . Albumin (test code = 2.6 g/dL 3.5-5.0 L 71875-2) Total Bilirubin (test 0.3 mg/dL 0.2-1.2 code = 1974-) Bilirubin, Direct 0.2 mg/dL 0.1-0.5 (test code = 1967-) Alkaline Phosphatase 90 U/L 40-150 (test code = 6768-6) AST (test code = 17 U/L 5-34 1920-8) ALT (test code = 11 U/L 6-55 1742-6) BRANDI (test code = BRANDI) Bead Wrapper ID - PIAYA L Lab Interpretation Abnormal (test code = 34701-5) [facility] [id number] 15:52:11 Test Item Value Reference Range Interpretation Comments Protein, Total (test 6.8 See_Comment [Autom ated code = 2885-2) message] The system which generated this result transmit levi reference range : 6.0 - 8.3 gm/dL . The reference range was not u sed to interpret th is result as normal/abnormal . Albumin (test code = 2.6 g/dL 3.5-5.0 L 04301-3) Total Bilirubin (test 0.3 mg/dL 0.2-1.2 code = 1974-) Bilirubin, Direct 0.2 mg/dL 0.1-0.5 (test code = 1967-) Alkaline Phosphatase 90 U/L 40-150 (test code = 6768-6) AST (test code = 17 U/L 5-34 1920-8) ALT (test code = 11 U/L 6-55 1742-6) BRANDI (test code = BRANDI) Bead Wrapper ID - PIAYA L Lab Interpretation Abnormal (test code = 46605-4) [facility] [id number] 15:52:11 Test Item Value Reference Range Interpretation Comments Protein, Total (test 6.8 See_Comment [Autom ated code = 2885-2) message] The system which generated this result transmit levi reference range : 6.0 - 8.3 gm/dL . The reference range was not u sed to interpret th is result as normal/abnormal . Albumin (test code = 2.6 g/dL 3.5-5.0 L 52647-4) Total Bilirubin (test 0.3 mg/dL 0.2-1.2 code = 1974-2) Bilirubin, Direct 0.2 mg/dL 0.1-0.5 (test code = 1967-) Alkaline Phosphatase 90 U/L 40-150 (test code = 6768-6) AST (test code = 17 U/L 5-34 1920-8) ALT (test code = 11 U/L 6-55 1742-6) BRANDI (test code = BRANDI) Bead Wrapper ID - PIAYA L Lab Interpretation Abnormal (test code = 17062-0) [facility] [id number] 15:52:11 Test Item Value Reference Range Interpretation Comments Protein, Total (test 6.8 See_Comment [Autom ated code = 2885-2) message] The system which generated this result transmit levi reference range : 6.0 - 8.3 gm/dL . The reference range was not u sed to interpret th is result as normal/abnormal . Albumin (test code = 2.6 g/dL 3.5-5.0 L 24387-1) Total Bilirubin (test 0.3 mg/dL 0.2-1.2 code = 1974-) Bilirubin, Direct 0.2 mg/dL 0.1-0.5 (test code = 1967-) Alkaline Phosphatase 90 U/L 40-150 (test code = 6768-6) AST (test code = 17 U/L 5-34 1920-8) ALT (test code = 11 U/L 6-55 1742-6) BRANDI (test code = BRANDI) Bead Wrapper ID - PIAYA L Lab Interpretation Abnormal (test code = 88741-6) [facility] [id number] 15:52:11 Test Item Value Reference Range Interpretation Comments Protein, Total (test 6.8 See_Comment [Autom ated code = 2885-2) message] The system which generated this result transmit levi reference range : 6.0 - 8.3 gm/dL . The reference range was not u sed to interpret th is result as normal/abnormal . Albumin (test code = 2.6 g/dL 3.5-5.0 L 44699-7) Total Bilirubin (test 0.3 mg/dL 0.2-1.2 code = 1974-2) Bilirubin, Direct 0.2 mg/dL 0.1-0.5 (test code = 1967-7) Alkaline Phosphatase 90 U/L 40-150 (test code = 6768-6) AST (test code = 17 U/L 5-34 1920-8) ALT (test code = 11 U/L 6-55 1742-6) BRANDI (test code = BRANDI) Bead Wrapper ID - PIKEZIA L Lab Interpretation Abnormal (test code = 78198-3) [facility] [id number] 15:52:11 Test Item Value Reference Range Interpretation Comments Protein, Total (test 6.8 See_Comment [Autom ated code = 2885-2) message] The system which generated this result transmit levi reference range : 6.0 - 8.3 gm/dL . The reference range was not u sed to interpret th is result as normal/abnormal . Albumin (test code = 2.6 g/dL 3.5-5.0 L 40460-7) Total Bilirubin (test 0.3 mg/dL 0.2-1.2 code = 1974-2) Bilirubin, Direct 0.2 mg/dL 0.1-0.5 (test code = 1967-) Alkaline Phosphatase 90 U/L 40-150 (test code = 6768-6) AST (test code = 17 U/L 5-34 1920-8) ALT (test code = 11 U/L 6-55 1742-6) BRANDI (test code = BRANDI) Bead Wrapper ID - PIAYA L Lab Interpretation Abnormal (test code = 28712-4) [facility] [id number] 15:52:11 Test Item Value Reference Range Interpretation Comments Protein, Total (test 6.8 See_Comment [Autom ated code = 2885-2) message] The system which generated this result transmit levi reference range : 6.0 - 8.3 gm/dL . The reference range was not u sed to interpret th is result as normal/abnormal . Albumin (test code = 2.6 g/dL 3.5-5.0 L 02614-3) Total Bilirubin (test 0.3 mg/dL 0.2-1.2 code = 1974-2) Bilirubin, Direct 0.2 mg/dL 0.1-0.5 (test code = 1967-7) Alkaline Phosphatase 90 U/L 40-150 (test code = 6768-6) AST (test code = 17 U/L 534 1920-8) ALT (test code = 11 U/L 6-55 1742-6) BRANDI (test code = BRANDI) Bead Wrapper ID - LIANA L Lab Interpretation Abnormal (test code = 98518-7) [facility] [id number] 15:52:11 Test Item Value Reference Range Interpretation Comments Protein, Total (test 6.8 See_Comment [Autom ated code = 2885-2) message] The system which generated this result transmit levi reference range : 6.0 - 8.3 gm/dL . The reference range was not u sed to interpret th is result as normal/abnormal . Albumin (test code = 2.6 g/dL 3.5-5.0 L 70632-7) Total Bilirubin (test 0.3 mg/dL 0.2-1.2 code = 1974-2) Bilirubin, Direct 0.2 mg/dL 0.1-0.5 (test code = 1967-) Alkaline Phosphatase 90 U/L 40-150 (test code = 6768-6) AST (test code = 17 U/L 534 1920-8) ALT (test code = 11 U/L 6-55 1742-6) BRANDI (test code = BRANDI) Bead Wrapper ID - PIAYA L Lab Interpretation Abnormal (test code = 51849-6) [facility] [id number] 15:52:11 Test Item Value Reference Range Interpretation Comments Protein, Total (test 6.8 See_Comment [Autom ated code = 2885-2) message] The system which generated this result transmit levi reference range : 6.0 - 8.3 gm/dL . The reference range was not u sed to interpret th is result as normal/abnormal . Albumin (test code = 2.6 g/dL 3.5-5.0 L 86589-4) Total Bilirubin (test 0.3 mg/dL 0.2-1.2 code = 1974-05) Bilirubin, Direct 0.2 mg/dL 0.1-0.5 (test code = 1967-10) Alkaline Phosphatase 90 U/L 40-150 (test code = 6768-6) AST (test code = 17 U/L 1920-8) ALT (test code = 11 U/L 1742-6) BRANDI (test code = BRANDI) Bead Wrapper ID - PIAYA L Lab Interpretation Abnormal (test code = 67235-9) [facility] [id number] 15:52:11 Test Item Value Reference Range Interpretation Comments Protein, Total (test 6.8 See_Comment [Autom ated code = 2885-2) message] The system which generated this result transmit levi reference range : 6.0 - 8.3 gm/dL . The reference range was not u sed to interpret th is result as normal/abnormal . Albumin (test code = 2.6 g/dL 3.5-5.0 L 60813-8) Total Bilirubin (test 0.3 mg/dL 0.2-1.2 code = 1974-05) Bilirubin, Direct 0.2 mg/dL 0.1-0.5 (test code = 1967-10) Alkaline Phosphatase 90 U/L 40-150 (test code = 6768-6) AST (test code = 17 U/L 1920-8) ALT (test code = 11 U/L 1742-6) BRANDI (test code = BRANDI) Bead Wrapper ID - PIAYA L Lab Interpretation Abnormal (test code = 31856-5) [facility] [id number] 15:52:11 Test Item Value Reference Range Interpretation Comments Protein, Total (test 6.8 See_Comment [Autom ated code = 2885-2) message] The system which generated this result transmit levi reference range : 6.0 - 8.3 gm/dL . The reference range was not u sed to interpret th is result as normal/abnormal . Albumin (test code = 2.6 g/dL 3.5-5.0 L 57616-6) Total Bilirubin (test 0.3 mg/dL 0.2-1.2 code = 1974-05) Bilirubin, Direct 0.2 mg/dL 0.1-0.5 (test code = 1967-10) Alkaline Phosphatase 90 U/L 40-150 (test code = 6768-6) AST (test code = 17 U/L 5-34 1920-8) ALT (test code = 11 U/L 1742-6) BRANDI (test code = BRANDI) Bead Wrapper ID - PIAYA L Lab Interpretation Abnormal (test code = 46529-2) [facility] [id number] 15:52:11 Test Item Value Reference Range Interpretation Comments Protein, Total (test 6.8 See_Comment [Autom ated code = 2885-2) message] The system which generated this result transmit levi reference range : 6.0 - 8.3 gm/dL . The reference range was not u sed to interpret th is result as normal/abnormal . Albumin (test code = 2.6 g/dL 3.5-5.0 L 32318-2) Total Bilirubin (test 0.3 mg/dL 0.2-1.2 code = 1974-05) Bilirubin, Direct 0.2 mg/dL 0.1-0.5 (test code = 1967-10) Alkaline Phosphatase 90 U/L 40-150 (test code = 6768-6) AST (test code = 17 U/L 34 1920-8) ALT (test code = 11 U/L 1742-6) BRANDI (test code = BRANDI) Bead Wrapper ID - PIAYA L Lab Interpretation Abnormal (test code = 65589-7) [facility] [id number] 15:52:11 Test Item Value Reference Range Interpretation Comments Protein, Total (test 6.8 See_Comment [Autom ated code = 2885-2) message] The system which generated this result transmit levi reference range : 6.0 - 8.3 gm/dL . The reference range was not u sed to interpret th is result as normal/abnormal . Albumin (test code = 2.6 g/dL 3.5-5.0 L 30173-4) Total Bilirubin (test 0.3 mg/dL 0.2-1.2 code = 1975-2) Bilirubin, Direct 0.2 mg/dL 0.1-0.5 (test code = 1968-7) Alkaline Phosphatase 90 U/L 40-150 (test code = 6768-6) AST (test code = 17 U/L 5-34 1920-8) ALT (test code = 11 U/L 6-55 1742-6) BRANDI (test code = BRANDI) Bead Wrapper ID - LIANA L Lab Interpretation Abnormal (test code = 03250-8) [facility] [id number] 15:52:11 Test Item Value Reference Range Interpretation [...] (test code = 11 U/L -55 347) Bead Wrapper ID - LIANA LHeparin atrntmtn2338-05-14 12:21:31 Test Item Value Reference Range Interpretation Comments Heparin Ab (test code Negative Negative = 3267-2) Heparin Antibody 0.247 <0.400 Optical Density (test code = 2659) 4T Total Score (test 4 code = 2661) BRANDI (test code = BRANDI) Probability of HIT based on scoring system: 6-8 = High probability; 4-5 = intermediate probability; 0-3 = low probability [facility] [id number] 12:21:31 Test Item Value Reference Range Interpretation Comments Heparin Ab (test code Negative Negative = 3267-2) Heparin Antibody 0.247 <0.400 Optical Density (test code = 2659) 4T Total Score (test 4 code = 2661) BRANDI (test code = BRANDI) Probability of HIT based on scoring system: 6-8 = High probability; 4-5 = intermediate probability; 0-3 = low probability [facility] [id number] 12:21:31 Test Item Value Reference Range Interpretation Comments Heparin Ab (test code Negative Negative = 3267-2) Heparin Antibody 0.247 <0.400 Optical Density (test code = 2659) 4T Total Score (test 4 code = 2661) BRANDI (test code = BRANDI) Probability of HIT based on scoring system: 6-8 = High probability; 4-5 = intermediate probability; 0-3 = low probability [facility] [id number] 12:21:31 Test Item Value Reference Range Interpretation Comments Heparin Ab (test code Negative Negative = 3267-2) Heparin Antibody 0.247 <0.400 Optical Density (test code = 2659) 4T Total Score (test 4 code = 2661) BRANDI (test code = BRANDI) Probability of HIT based on scoring system: 6-8 = High probability; 4-5 = intermediate probability; 0-3 = low probability [facility] [id number] 12:21:31 Test Item Value Reference Range Interpretation Comments Heparin Ab (test code Negative Negative = 3267-2) Heparin Antibody 0.247 <0.400 Optical Density (test code = 2659) 4T Total Score (test 4 code = 2661) BRANDI (test code = BRANDI) Probability of HIT based on scoring system: 6-8 = High probability; 4-5 = intermediate probability; 0-3 = low probability [facility] [id number] 12:21:31 Test Item Value Reference Range Interpretation Comments Heparin Ab (test code Negative Negative = 3267-2) Heparin Antibody 0.247 <0.400 Optical Density (test code = 2659) 4T Total Score (test 4 code = 2661) BRANDI (test code = BRANDI) Probability of HIT based on scoring system: 6-8 = High probability; 4-5 = intermediate probability; 0-3 = low probability [facility] [id number] 12:21:31 Test Item Value Reference Range Interpretation Comments Heparin Ab (test code Negative Negative = 3267-2) Heparin Antibody 0.247 <0.400 Optical Density (test code = 2659) 4T Total Score (test 4 code = 2661) BRANDI (test code = BRANDI) Probability of HIT based on scoring system: 6-8 = High probability; 4-5 = intermediate probability; 0-3 = low probability [facility] [id number] 12:21:31 Test Item Value Reference Range Interpretation Comments Heparin Ab (test code Negative Negative = 3267-2) Heparin Antibody 0.247 <0.400 Optical Density (test code = 2659) 4T Total Score (test 4 code = 2661) BRANDI (test code = BRANDI) Probability of HIT based on scoring system: 6-8 = High probability; 4-5 = intermediate probability; 0-3 = low probability [facility] [id number] 12:21:31 Test Item Value Reference Range Interpretation Comments Heparin Ab (test code Negative Negative = 3267-2) Heparin Antibody 0.247 <0.400 Optical Density (test code = 2659) 4T Total Score (test 4 code = 2661) BRANDI (test code = BRANDI) Probability of HIT based on scoring system: 6-8 = High probability; 4-5 = intermediate probability; 0-3 = low probability [facility] godnwyco2108-02-09 12:21:31 Test Item Value Reference Range Interpretation Comments Heparin Ab (test code Negative Negative = 3267-2) Heparin Antibody 0.247 <0.400 Optical Density (test code = 2659) 4T Total Score (test 4 code = 2661) BRANDI (test code = BRANDI) Probability of HIT based on scoring system: 6-8 = High probability; 4-5 = intermediate probability; 0-3 = low probability [facility] [id number] 12:21:31 Test Item Value Reference Range Interpretation Comments Heparin Ab (test code Negative Negative = 3267-2) Heparin Antibody 0.247 <0.400 Optical Density (test code = 2659) 4T Total Score (test 4 code = 2661) BRANDI (test code = BRANDI) Probability of HIT based on scoring system: 6-8 = High probability; 4-5 = intermediate probability; 0-3 = low probability [facility] iiqtnehu9303-55-03 12:21:31 Test Item Value Reference Range Interpretation Comments Heparin Ab (test code Negative Negative = 3267-2) Heparin Antibody 0.247 <0.400 Optical Density (test code = 2659) 4T Total Score (test 4 code = 2661) BRANDI (test code = BRANDI) Probability of HIT based on scoring system: 6-8 = High probability; 4-5 = intermediate probability; 0-3 = low probability [facility] lgvcveuo1535-16-23 12:21:31 Test Item Value Reference Range Interpretation Comments Heparin Ab (test code Negative Negative = 3267-2) Heparin Antibody 0.247 <0.400 Optical Density (test code = 2659) 4T Total Score (test 4 code = 2661) BRANDI (test code = BRANDI) Probability of HIT based on scoring system: 6-8 = High probability; 4-5 = intermediate probability; 0-3 = low probability [facility] [id number] 12:21:31 Test Item Value Reference Range Interpretation Comments Heparin Ab (test code Negative Negative = 3267-2) Heparin Antibody 0.247 <0.400 Optical Density (test code = 2659) 4T Total Score (test 4 code = 2661) BRANDI (test code = BRANDI) Probability of HIT based on scoring system: 6-8 = High probability; 4-5 = intermediate probability; 0-3 = low probability [facility] [id number] 12:21:31 Test Item Value Reference Range Interpretation Comments HEPARIN ANTIBODY (BEAKER) (test code Negative Negative = 646) HEPARIN ANTIBODY OD (BEAKER) (test 0.247 <0.400 code = 2659) 4T TOTAL SCORE (BEAKER) (test code = 4 2661) Probability of HIT based on scoring system: 6-8 = High probability; 4-5 = intermediate probability; 0-3 = [facility] [id number] 08:07:00 Test Item Value Reference Range Interpretation Comments ABO Grouping (test code = 2588) O Rh Factor (test code = 2589) POS [facility], ktcffl9998-04-06 08:07:00 Test Item Value Reference Range Interpretation Comments ABO Grouping (test code = 2588) O Rh Factor (test code = 2589) POS [facility], [id number] 08:07:00 Test Item Value Reference Range Interpretation Comments ABO Grouping (test code = 2588) O Rh Factor (test code = 2589) [facility], [id number] 08:07:00 Test Item Value Reference Range Interpretation Comments ABO Grouping (test code = 2588) O Rh Factor (test code = 2589) [facility], [id number] 08:07:00 Test Item Value Reference Range Interpretation Comments ABO Grouping (test code = 2588) O Rh Factor (test code = 2589) [facility], raobik8794-93-43 08:07:00 Test Item Value Reference Range Interpretation Comments ABO Grouping (test code = 2588) O Rh Factor (test code = 2589) [facility], [id number] 08:07:00 Test Item Value Reference Range Interpretation Comments ABO Grouping (test code = 2588) O Rh Factor (test code = 2589) [facility], [id number] 08:07:00 Test Item Value Reference Range Interpretation Comments ABO Grouping (test code = 2588) O Rh Factor (test code = 2589) [facility], [id number] 08:07:00 Test Item Value Reference Range Interpretation Comments ABO Grouping (test code = 2588) O Rh Factor (test code = 2589) [facility], [id number] 08:07:00 Test Item Value Reference Range Interpretation Comments ABO Grouping (test code = 2588) O Rh Factor (test code = 2589) [facility], [id number] 08:07:00 Test Item Value Reference Range Interpretation Comments ABO Grouping (test code = 2588) O Rh Factor (test code = 2589) [facility], [id number] 08:07:00 Test Item Value Reference Range Interpretation Comments ABO Grouping (test code = 2588) O Rh Factor (test code = 2589) [facility], [id number] 08:07:00 Test Item Value Reference Range Interpretation Comments ABO Grouping (test code = 2588) O Rh Factor (test code = 2589) [facility], osvgrl7085-23-07 08:07:00 Test Item Value Reference Range Interpretation Comments ABO Grouping (test code = 2588) O Rh Factor (test code = 2589) POS [facility] [id number] 05:19:52 Test Item Value Reference Range Interpretation [...] S NOT APPLICABLE FOR DIALYSIS PATIEN TS. Bead Wrapper ID - LIANA [id number] 05:09:04 Test Item Value Reference Range Interpretation Comments PHOSPHORUS (BEAKER) (test code = 4.1 mg/dL 2.3-4.7 604) Bead Wrapper ID - LIANA [id number] 05:09:03 Test Item Value Reference Range Interpretation Comments MAGNESIUM (BEAKER) (test code = 2.0 mg/dL 1.6-2.6 627) Bead Wrapper ID - LIANA LPT/[id number] 04:53:34 Test Item Value Reference Interpretation Comments Range Protime (test code = 13.7 See_Comment [Autom ated 5902-2) message] The system which generated this result transmitted reference range : 11.9 - 14.2 seconds. The reference range was not used to interpret this result as normal/abnormal . INR (test code = 1.07 See_Comment [Automated 4381-6) message] The system which generated this result transmitted reference range : <=5.90. The reference range was not used to interpret this result as normal/abnormal . PTT (test code = 32.5 See_Comment [Automated 38405-1) message] The system which generated this result [...] valves. Lab Interpretation Normal (test code = 11118-0) [facility]vXXH7702-68-02 04:53:34 Test Item Value Reference Interpretation Comments [...] PTT (test code = 32.5 See_Comment [Automated 10801-3) message] The system which generated this result [...] valves. Lab Interpretation Normal (test code = 39478-2) [facility]/xTUR9837-88-61 04:53:34 Test Item Value Reference Interpretation Comments [...] PTT (test code = 32.5 See_Comment [Automated 73049-9) message] The system which generated this result [...] valves. Lab Interpretation Normal (test code = 96353-0) [facility]/vTCG9698-74-29 04:53:34 Test Item Value Reference Interpretation Comments [...] PTT (test code = 32.5 See_Comment [Automated 40166-9) message] The system which generated this result [...] valves. Lab Interpretation Normal (test code = 24089-2) [facility]/lVZG4869-92-97 04:53:34 Test Item Value Reference Interpretation Comments [...] PTT (test code = 32.5 See_Comment [Automated 98697-9) message] The system which generated this result [...] valves. Lab Interpretation Normal (test code = 02480-2) [facility]/xDJA4658-92-84 04:53:34 Test Item Value Reference Interpretation Comments [...] PTT (test code = 32.5 See_Comment [Automated 22335-5) message] The system which generated this result [...] valves. Lab Interpretation Normal (test code = 28304-0) [facility]/hFWN5407-18-86 04:53:34 Test Item Value Reference Interpretation Comments [...] PTT (test code = 32.5 See_Comment [Automated 14940-8) message] The system which generated this result [...] valves. Lab Interpretation Normal (test code = 52684-0) [facility]/fZMB9761-15-39 04:53:34 Test Item Value Reference Interpretation Comments [...] PTT (test code = 32.5 See_Comment [Automated 51568-6) message] The system which generated this result [...] valves. Lab Interpretation Normal (test code = 25136-0) [facility]/iUSZ1879-58-00 04:53:34 Test Item Value Reference Interpretation Comments [...] PTT (test code = 32.5 See_Comment [Automated 33431-4) message] The system which generated this result [...] valves. Lab Interpretation Normal (test code = 66488-1) [facility]/eOFV9112-62-05 04:53:34 Test Item Value Reference Interpretation Comments [...] PTT (test code = 32.5 See_Comment [Automated 99700-7) message] The system which generated this result [...] valves. Lab Interpretation Normal (test code = 95199-0) [facility]/lAAB9328-92-31 04:53:34 Test Item Value Reference Interpretation Comments [...] PTT (test code = 32.5 See_Comment [Automated 16664-0) message] The system which generated this result [...] valves. Lab Interpretation Normal (test code = 57102-5) [facility]/pBQI2598-79-22 04:53:34 Test Item Value Reference Interpretation Comments [...] PTT (test code = 32.5 See_Comment [Automated 59134-6) message] The system which generated this result [...] valves. Lab Interpretation Normal (test code = 40096-6) [facility]/zIDD5701-87-24 04:53:34 Test Item Value Reference Interpretation Comments Range Protime (test code = 13.7 See_Comment [Autom [employer] 5902-2) message] The system which generated this [...] PTT (test code = 32.5 See_Comment [Automated 98449-1) message] The system which generated this result [...] valves. Lab Interpretation Normal (test code = 68753-0) [facility]/yDSI3625-76-61 04:53:34 Test Item Value Reference Interpretation Comments [...] PTT (test code = 32.5 See_Comment [Automated 19790-0) message] The system which generated this result [...] valves. Lab Interpretation Normal (test code = 05133-0) [id number] 04:53:34 Test Item Value Reference Range Interpretation [...] mechanical heart valves.CBC W/PLT COUNT & AUTO [id number] 04:46:52 Test Item Value Reference Range Interpretation [...] PERCENT (BEAKER) (test code = 2801) POCT-GLUCOSE [id number] 11:21:11 Test Item Value Reference Range Interpretation Comments POC-GLUCOSE METER 204 mg/dL 70-110 H : TESTED Cata T [facility] 6720 (BEAKER) (test code = [place], 1538) 76824: Bead Wrapper/Techni kelle ID = [id number] for Meeta Mcfarlane POCT-GLUCOSE [id number] 07:42:50 Test Item Value Reference Range Interpretation Comments POC-GLUCOSE METER 226 mg/dL 70-110 H : TESTED A T [facility] 6720 (BEAKER) (test code = [place], 1538) 17598: Bead Wrapper/Techni kelle ID = [id number] for Meeta Mcfarlane BASIC METABOLIC [id number] 05:13:30 Test Item Value Reference Range Interpretation [...] S NOT APPLICABLE FOR DIALYSIS PATIEN TS. Bead Wrapper ID - LIANA [id number] 05:11:53 Test Item Value Reference Range Interpretation Comments PHOSPHORUS (BEAKER) (test code = 3.3 mg/dL 2.3-4.7 604) Bead Wrapper ID - LIANA [id number] 05:11:52 Test Item Value Reference Range Interpretation Comments MAGNESIUM (BEAKER) (test code = 2.0 mg/dL 1.6-2.6 627) Bead Wrapper ID - LIANA LCBC W/PLT COUNT & AUTO [id number] 04:23:17 Test Item Value Reference Range Interpretation [...] PERCENT (BEAKER) (test code = 2801) POCT-GLUCOSE [id number] 17:21:48 Test Item Value Reference Range Interpretation Comments POC-GLUCOSE METER 209 mg/dL 70-110 H : TESTED A T [facility] 6720 (BEAKER) (test code = YUDY [place], 1538) 21921: Bead Wrapper/Techni kelle ID = [id number] for PADMINI ALMANZAR POCT-GLUCOSE [id number] 12:56:45 Test Item Value Reference Range Interpretation Comments POC-GLUCOSE METER 81 mg/dL 70-110 : TESTED A T [facility] 6720 (BEAKER) (test code = YUDY [place], 1538) 99574: Bead Wrapper/Techni kelle ID = [id number] for PADMINI GRYA Pejbinwr4906-53-30 09:21:04 Test Item Value Reference Range Interpretation Comments Ferritin (test code = 1418.54 ng/mL 5.00-275.00 H 2276-4) BRANDI (test code = BRANDI) Bead Wrapper ID - HIEN M Lab Interpretation (test Abnormal code = 25590-9) [facility] 09:21:04 Test Item Value Reference Range Interpretation Comments Ferritin (test code = 1418.54 ng/mL 5.00-275.00 H 2276-4) BRANDI (test code = BRANDI) Bead Wrapper ID - HIEN M Lab Interpretation (test Abnormal code = 13713-8) [facility] 09:21:04 Test Item Value Reference Range Interpretation Comments Ferritin (test code = 1418.54 ng/mL 5.00-275.00 H 2276-4) BRANDI (test code = BRANDI) Bead Wrapper ID - HIEN M Lab Interpretation (test Abnormal code = 21567-3) [facility] 09:21:04 Test Item Value Reference Range Interpretation Comments Ferritin (test code = 1418.54 ng/mL 5.00-275.00 H 2276-4) BRANDI (test code = BRANDI) Bead Wrapper ID - HIEN M Lab Interpretation (test Abnormal code = 44038-2) [facility] 09:21:04 Test Item Value Reference Range Interpretation Comments Ferritin (test code = 1418.54 ng/mL 5.00-275.00 H 2276-4) BRANDI (test code = BRANDI) Bead Wrapper ID - HIEN M Lab Interpretation (test Abnormal code = 20199-3) [facility] 09:21:04 Test Item Value Reference Range Interpretation Comments Ferritin (test code = 1418.54 ng/mL 5.00-275.00 H 2276-4) BRANDI (test code = BRANDI) Bead Wrapper ID - HIEN M Lab Interpretation (test Abnormal code = 86582-9) [facility] 09:21:04 Test Item Value Reference Range Interpretation Comments Ferritin (test code = 1418.54 ng/mL 5.00-275.00 H 2276-4) BRANDI (test code = BRANDI) Bead Wrapper ID - HIEN M Lab Interpretation (test Abnormal code = 30724-5) [facility]2022-03-12 09:21:04 Test Item Value Reference Range Interpretation Comments Ferritin (test code = 1418.54 ng/mL 5.00-275.00 H 2276-4) BRANDI (test code = BRANDI) Bead Wrapper ID - HIEN M Lab Interpretation (test Abnormal code = 23082-8) [facility] 09:21:04 Test Item Value Reference Range Interpretation Comments Ferritin (test code = 1418.54 ng/mL 5.00-275.00 H 2276-4) BRANDI (test code = BRANDI) Bead Wrapper ID - HIEN M Lab Interpretation (test Abnormal code = 66076-3) [facility] 09:21:04 Test Item Value Reference Range Interpretation Comments Ferritin (test code = 1418.54 ng/mL 5.00-275.00 H 2276-4) BRANDI (test code = BRANDI) Bead Wrapper ID - HIEN M Lab Interpretation (test Abnormal code = 21783-8) [facility] 09:21:04 Test Item Value Reference Range Interpretation Comments Ferritin (test code = 1418.54 ng/mL 5.00-275.00 H 2276-4) BRANDI (test code = BRANDI) Bead Wrapper ID - HIEN M Lab Interpretation (test Abnormal code = 13486-1) [facility]2022-03-12 09:21:04 Test Item Value Reference Range Interpretation Comments Ferritin (test code = 1418.54 ng/mL 5.00-275.00 H 2276-4) BRANDI (test code = BRANDI) Bead Wrapper ID - HIEN M Lab Interpretation (test Abnormal code = 50245-6) [facility] 09:21:04 Test Item Value Reference Range Interpretation Comments Ferritin (test code = 1418.54 ng/mL 5.00-275.00 H 2276-4) BRANDI (test code = BRANDI) Bead Wrapper ID - HIEN M Lab Interpretation (test Abnormal code = 96398-9) [facility] 09:21:04 Test Item Value Reference Range Interpretation Comments Ferritin (test code = 1418.54 ng/mL 5.00-275.00 H 2276-4) BRANDI (test code = BRANDI) Bead Wrapper ID - HIEN M Lab Interpretation (test Abnormal code = 05312-9) [facility] 09:21:04 Test Item Value Reference Range Interpretation Comments FERRITIN (BEAKER) (test code = 1418.54 ng/mL 5.00-275.00 H 361) Bead Wrapper ID - HIEN [place], TIBC, % sat. (without ferritin)2021-06-13 09:01:39 Test Item Value Reference Range Interpretation Comments Iron (test code = 2498-4) 75.0 ug/dL 40.0-160.0 TIBC (test code = 2500-7) 145 ug/dL 250-450 L Iron % Saturation (test 52 % 20-55 code = 2502-3) BRANDI (test code = BRANDI) Bead Wrapper ID - HIEN M Lab Interpretation (test Abnormal code = 60840-2) [facility], [facility], % sat. (without ferritin)2021-06-13 09:01:39 Test Item Value Reference Range Interpretation Comments Iron (test code = 2498-4) 75.0 ug/dL 40.0-160.0 TIBC (test code = 2500-7) 145 ug/dL 250-450 L Iron % Saturation (test 52 % 20-55 code = 2502-3) BRANDI (test code = BRANDI) Bead Wrapper ID - HIEN M Lab Interpretation (test Abnormal code = 10644-5) [facility], TIBC, % sat. (without ferritin)2021-06-13 09:01:39 Test Item Value Reference Range Interpretation Comments Iron (test code = 2498-4) 75.0 ug/dL 40.0-160.0 TIBC (test code = 2500-7) 145 ug/dL 250-450 L Iron % Saturation (test 52 % 20-55 code = 2502-3) BRANDI (test code = BRANDI) Bead Wrapper ID - HIEN M Lab Interpretation (test Abnormal code = 52061-3) [facility], TIBC, % sat. (without ferritin)2021-06-13 09:01:39 Test Item Value Reference Range Interpretation Comments Iron (test code = 2498-4) 75.0 ug/dL 40.0-160.0 TIBC (test code = 2500-7) 145 ug/dL 250-450 L Iron % Saturation (test 52 % 20-55 code = 2502-3) BRANDI (test code = BRANDI) Bead Wrapper ID - HIEN M Lab Interpretation (test Abnormal code = 65797-9) [facility], TIBC, % sat. (without ferritin)2021-06-13 09:01:39 Test Item Value Reference Range Interpretation Comments Iron (test code = 2498-4) 75.0 ug/dL 40.0-160.0 TIBC (test code = 2500-7) 145 ug/dL 250-450 L Iron % Saturation (test 52 % 20-55 code = 2502-3) BRANDI (test code = BRANDI) Bead Wrapper ID - HIEN M Lab Interpretation (test Abnormal code = 39936-0) [facility], TIBC, % sat. (without ferritin)2021-06-13 09:01:39 Test Item Value Reference Range Interpretation Comments Iron (test code = 2498-4) 75.0 ug/dL 40.0-160.0 TIBC (test code = 2500-7) 145 ug/dL 250-450 L Iron % Saturation (test 52 % 20-55 code = 2502-3) BRANDI (test code = BRANDI) Bead Wrapper ID - HIEN M Lab Interpretation (test Abnormal code = 85083-2) [facility], TIBC, % sat. (without ferritin)2021-06-13 09:01:39 Test Item Value Reference Range Interpretation Comments Iron (test code = 2498-4) 75.0 ug/dL 40.0-160.0 TIBC (test code = 2500-7) 145 ug/dL 250-450 L Iron % Saturation (test 52 % 20-55 code = 2502-3) BRANDI (test code = BRANDI) Bead Wrapper ID - HIEN M Lab Interpretation (test Abnormal code = 59443-5) [facility], TIBC, % sat. (without ferritin)2021-06-13 09:01:39 Test Item Value Reference Range Interpretation Comments Iron (test code = 2498-4) 75.0 ug/dL 40.0-160.0 TIBC (test code = 2500-7) 145 ug/dL 250-450 L Iron % Saturation (test 52 % 20-55 code = 2502-3) BRANDI (test code = BRANDI) Bead Wrapper ID - HIEN M Lab Interpretation (test Abnormal code = 63066-2) [facility], TIBC, % sat. (without ferritin)2021-06-13 09:01:39 Test Item Value Reference Range Interpretation Comments Iron (test code = 2498-4) 75.0 ug/dL 40.0-160.0 TIBC (test code = 2500-7) 145 ug/dL 250-450 L Iron % Saturation (test 52 % 20-55 code = 2502-3) BRANDI (test code = BRANDI) Bead Wrapper ID - HIEN M Lab Interpretation (test Abnormal code = 89544-8) [facility], TIBC, % sat. (without ferritin)2021-06-13 09:01:39 Test Item Value Reference Range Interpretation Comments Iron (test code = 2498-4) 75.0 ug/dL 40.0-160.0 TIBC (test code = 2500-7) 145 ug/dL 250-450 L Iron % Saturation (test 52 % 20-55 code = 2502-3) BRANDI (test code = BRANDI) Bead Wrapper ID - HIEN M Lab Interpretation (test Abnormal code = 41039-2) [facility], TIBC, % sat. (without ferritin)2021-06-13 09:01:39 Test Item Value Reference Range Interpretation Comments Iron (test code = 2498-4) 75.0 ug/dL 40.0-160.0 TIBC (test code = 2500-7) 145 ug/dL 250-450 L Iron % Saturation (test 52 % 20-55 code = 2502-3) BRANDI (test code = BRANDI) Bead Wrapper ID - HIEN M Lab Interpretation (test Abnormal code = 78002-1) [facility], TIBC, % sat. (without ferritin)2021-06-13 09:01:39 Test Item Value Reference Range Interpretation Comments Iron (test code = 2498-4) 75.0 ug/dL 40.0-160.0 TIBC (test code = 2500-7) 145 ug/dL 250-450 L Iron % Saturation (test 52 % 20-55 code = 2502-3) BRANDI (test code = BRANDI) Bead Wrapper ID - HIEN M Lab Interpretation (test Abnormal code = 44805-7) [facility], TIBC, % sat. (without ferritin)2021-06-13 09:01:39 Test Item Value Reference Range Interpretation Comments Iron (test code = 2498-4) 75.0 ug/dL 40.0-160.0 TIBC (test code = 2500-7) 145 ug/dL 250-450 L Iron % Saturation (test 52 % 20-55 code = 2502-3) BRANDI (test code = BRANDI) Bead Wrapper ID - HIEN M Lab Interpretation (test Abnormal code = 97714-1) [facility], TIBC, % sat. (without ferritin)2021-06-13 09:01:39 Test Item Value Reference Range Interpretation Comments Iron (test code = 2498-4) 75.0 ug/dL 40.0-160.0 TIBC (test code = 2500-7) 145 ug/dL 250-450 L Iron % Saturation (test 52 % 20-55 code = 2502-3) BRANDI (test code = BRANDI) Bead Wrapper ID - HIEN M Lab Interpretation (test Abnormal code = 36169-0) [facility], TIBC, % SAT. (WITHOUT FERRITIN)2021-06-13 09:01:39 Test Item Value Reference Range Interpretation Comments IRON (BEAKER) (test code = 547) 75.0 ug/dL 40.0-160.0 TOTAL IRON BINDING CAPACITY 145 ug/dL 250-450 L (BEAKER) (test code = 769) IRON % SATURATION (2) (BEAKER) 52 % 20-55 (test code = 2590) Bead Wrapper ID Bassam [place] MPOCT-GLUCOSE [id number] 08:51:07 Test Item Value Reference Range Interpretation Comments POC-GLUCOSE METER 106 mg/dL 70-110 : TESTED A T [facility] 6720 (BEAKER) (test code = YUDY [place], 1538) 48075: Bead Wrapper/Techni kelle ID = [id number] for PADMINI ALMANZAR BASIC METABOLIC [id number] 04:21:54 Test Item Value Reference Range Interpretation [...] S NOT APPLICABLE FOR DIALYSIS PATIEN TS. Bead Wrapper ID - HIEN [id number] 04:17:34 Test Item Value Reference Range Interpretation Comments MAGNESIUM (BEAKER) (test code = 2.0 mg/dL 1.6-2.6 627) Bead Wrapper ID - HIEN [id number] 04:17:34 Test Item Value Reference Range Interpretation Comments PHOSPHORUS (BEAKER) (test code = 3.1 mg/dL 2.3-4.7 604) Bead Wrapper ID - HIEN MCBC W/PLT COUNT & AUTO [id number] 03:49:10 Test Item Value Reference Range Interpretation [...] 2801) SARS-COV2/RT-PCR ([facility])2021-06-13 02:28:08 Test Item Value Reference Range Interpretation Comments SARS-COV2/RT-PCR (test code = Negative Negative 3427583) Negative result for this test determines that [...] 564(g) of the Act.Testing was performed using ilustrum SARS-CoV-2 assay.Fact Sheet for Healthcare Providers:https://www.Mediastay.brown/ct/RT SARS-CoV-2 HCP Fact Sheet 51- 190549.pdfFact Sheet for Healthcare Patients:https://www.Mediastay.brown/ct/RT SARS-CoV-2 Patient Fact Sheet EN 51-336161U0.pdfPOCT-GLUCOSE [id number] 02:01:02 Test Item Value Reference Range Interpretation Comments POC-GLUCOSE METER 98 mg/dL 70-110 : TESTED A T [facility] 6720 (BEAKER) (test code = YUDY [place] [facility], 1538) 92895: Bead Wrapper/Techni kelle ID = [id number] for SREEKANTH ROSS POCT-GLUCOSE [id number] 02:00:06 Test Item Value Reference Range Interpretation Comments POC-GLUCOSE METER 151 mg/dL 70-110 H : TESTED A T [facility] 6720 (BEAKER) (test code = YUDY [place] [facility], 1538) 57830: Bead Wrapper/Techni kelle ID = [id number] for ALINE ROWE BLOOD [id number] 23:01:20 Test Item Value Reference Range Interpretation Comments CULTURE (BEAKER) (test No growth in 5 days code = 1095) BLOOD [id number] 23:01:19 Test Item Value Reference Range Interpretation Comments CULTURE (BEAKER) (test No growth in 5 days code = 1095) CT, BRAIN, WITHOUT [id number] 08:55:00Unlisted Reason for Exam - Click Yes and Enter Reason Below->No [facility] : 1955 Sex: FFINAL REPORT CT [...] MDReport Verified Date/Time: 06/12/2021 08:55:52 Reading Location: [address] Neuro Reading Room POCT-GLUCOSE [id number] 07:42:49 Test Item Value Reference Range Interpretation Comments POC-GLUCOSE METER 113 mg/dL 70-110 H : TESTED A T [facility] 6720 (BEAKER) (test code = [facility], 1538) 55785: Bead Wrapper/Techni kelle ID = [id number] for Sheryl Enciso POCT-GLUCOSE [id number] 07:42:05 Test Item Value Reference Range Interpretation Comments POC-GLUCOSE METER 131 mg/dL 70-110 H : TESTED A T [facility] 6720 (BEAKER) (test code = [facility], 1538) 61054: Bead Wrapper/Techni kelle ID = [id number] for JI MONTAÑO POCT-GLUCOSE [id number] 07:32:16 Test Item Value Reference Range Interpretation Comments POC-GLUCOSE METER 127 mg/dL 70-110 H : TESTED A T [facility] 6720 (BEAKER) (test code = [facility], 1538) 33230: Bead Wrapper/Techni kelle ID = [id number] for GURINDER VILLA CT, CTANGIO [id number] 03:03:00Reason for exam:->Symptoms onset less than 6 hours and NIHSS 6 or greater [facility] JAK MER[facility]LL : 1955 Sex: FFINAL REPORT [...] the film. IMPRESSION: No evidence of a [place] proximal branch vessel occlusion or [...] Nikole Baron MDReport Verified Date/Time: 06/12/2021 03:03:56 [facility] [place] [id number] 03:03:00Reason for exam:- >Symptoms onset less than 6 hours and NIHSS 6 or greater [facility] MER[facility] : 1955 Sex: FFINAL REPORT [...] the film. IMPRESSION: No evidence of a [place] of [place] proximal branch vessel occlusion or [...] Nikole Baron Verified Date/Time: 06/12/2021 03:03:56 PROTHROMBIN TIME/[id number] 01:46:16 Test Item Value Reference Range Interpretation Comments PROTIME (BEAKER) 15.0 seconds 11.9-14.2 H (test code = 759) INR (BEAKER) (test 1.20 See_Comment [Automat ed message] code = 370) The system [employer] generated this result transmitted ref erence range: <=5.90. The reference range was not used to int erpret this result as normal/abnormal . RECOMMENDED COUMADIN/WARFARIN INR THERAPY RANGESSTANDARD DOSE: 2.0 - 3.0 Includes: PROPHYLAXIS for venous thrombosis, systemic embolization; TREATMENT for venous thrombosis and/or pulmonary embolus.HIGH RISK: Target INR is 2.5-3.5 for patients with mechanical heart valves.CBC W/PLT COUNT & AUTO [id number] 01:45:34 Test Item Value Reference Range Interpretation [...] (test code = 2801) CT, BRAIN, WITHOUT [id number] 01:38:00Unlisted Reason for Exam - Click Yes and Enter Reason Below->No [facility] : 1955 Sex: FFINAL REPORT [...] 06/12/2021 01:38:35 High Sensitivity Troponin I ([facility]/Jin Only)2021-06-12 01:35:31 Test Item Value Reference Range Interpretation Comments Troponin I HS (test 231 pg/ml See_Comment H [Automa levi code = 98613-7) message] The system which generated this result transmitted reference range : <=17. The reference range was not used to interpret this result as normal/abnormal . BRANDI (test code = Bead Wrapper ID - BRANDI) DBThe FIREBOAT OPERATOR STAT High Sensitivity Troponin-I results should be used in conjunction with other diagnostic information such as ECG, clinical observations and information, and patient symptoms to aid in the diagnosis of DC. Lab Interpretation Abnormal (test code = 77850-8) [facility]in Only[facility] 2021-06-12 01:35:31 Test Item Value Reference Range Interpretation Comments Troponin I HS (test 231 pg/ml See_Comment H [Automa levi code = 38926-0) message] The system which generated this result transmitted reference range : <=17. The reference range was not used to interpret this result as normal/abnormal . BRANDI (test code = Bead Wrapper ID - BRANDI) DBThe FIREBOAT OPERATOR STAT High Sensitivity Troponin-I results should be used in conjunction with other diagnostic information such as ECG, clinical observations and information, and patient symptoms to aid in the diagnosis of DC. Lab Interpretation Abnormal (test code = 61075-7) [facility]Jin [facility] 2021-06-12 01:35:31 Test Item Value Reference Range Interpretation Comments Troponin I HS (test 231 pg/ml See_Comment H [Automa levi code = 48575-0) message] The system which generated this result transmitted reference range : <=17. The reference range was not used to interpret this result as normal/abnormal . BRANDI (test code = Bead Wrapper ID - BRANDI) DBThe FIREBOAT OPERATOR STAT High Sensitivity Troponin-I results should be used in conjunction with other diagnostic information such as ECG, clinical observations and information, and patient symptoms to aid in the diagnosis of DC. Lab Interpretation Abnormal (test code = 72732-9) [facility] 2021-06-12 01:35:31 Test Item Value Reference Range Interpretation Comments Troponin I HS (test 231 pg/ml See_Comment H [Automa levi code = 25257-2) message] The system which generated this result transmitted reference range : <=17. The reference range was not used to interpret this result as normal/abnormal . BRANDI (test code = Bead Wrapper ID - BRANDI) DBThe FIREBOAT OPERATOR STAT High Sensitivity Troponin-I results should be used in conjunction with other diagnostic information such as ECG, clinical observations and information, and patient symptoms to aid in the diagnosis of DC. Lab Interpretation Abnormal (test code = 56241-4) [facility] ([facility] Only[facility] 2021-06-12 01:35:31 Test Item Value Reference Range Interpretation Comments Troponin I HS (test 231 pg/ml See_Comment H [Automa levi code = 52174-8) message] The system which generated this result transmitted reference range : <=17. The reference range was not used to interpret this result as normal/abnormal . BRANDI (test code = Bead Wrapper ID - BRANDI) DBThe FIREBOAT OPERATOR STAT High Sensitivity Troponin-I results should be used in conjunction with other diagnostic information such as ECG, clinical observations and information, and patient symptoms to aid in the diagnosis of DC. Lab Interpretation Abnormal (test code = 29250-9) [facility] 2021-06-12 01:35:31 Test Item Value Reference Range Interpretation Comments Troponin I HS (test 231 pg/ml See_Comment H [Automa levi code = 89578-6) message] The system which generated this result transmitted reference range : <=17. The reference range was not used to interpret this result as normal/abnormal . BRANDI (test code = Bead Wrapper ID - BRANDI) DBThe FIREBOAT OPERATOR STAT High Sensitivity Troponin-I results should be used in conjunction with other diagnostic information such as ECG, clinical observations and information, and patient symptoms to aid in the diagnosis of DC. Lab Interpretation Abnormal (test code = 35508-8) [facility]in Only) 2021-06-12 01:35:31 Test Item Value Reference Range Interpretation Comments Troponin I HS (test 231 pg/ml See_Comment H [Automa levi code = 46578-0) message] The system which generated this result transmitted reference range : <=17. The reference range was not used to interpret this result as normal/abnormal . BRANDI (test code = Bead Wrapper ID - BRANDI) DBTCarefx FIREBOAT OPERATOR STAT High Sensitivity Troponin-I results should be used in conjunction with other diagnostic information such as ECG, clinical observations and information, and patient symptoms to aid in the diagnosis of DC. Lab Interpretation Abnormal (test code = 29267-3) [facility] ([facility]Jin Only) 2021-06-12 01:35:31 Test Item Value Reference Range Interpretation Comments Troponin I HS (test 231 pg/ml See_Comment H [Automa levi code = 96527-7) message] The system which generated this result transmitted reference range : <=17. The reference range was not used to interpret this result as normal/abnormal . BRANDI (test code = Bead Wrapper ID - BRANDI) DBThe FIREBOAT OPERATOR STAT High Sensitivity Troponin-I results should be used in conjunction with other diagnostic information such as ECG, clinical observations and information, and patient symptoms to aid in the diagnosis of DC. Lab Interpretation Abnormal (test code = 10979-8) [facility] ([facility] Only[facility] 2021-06-12 01:35:31 Test Item Value Reference Range Interpretation Comments Troponin I HS (test 231 pg/ml See_Comment H [Automa levi code = 56382-5) message] The system which generated this result transmitted reference range : <=17. The reference range was not used to interpret this result as normal/abnormal . BRANDI (test code = Bead Wrapper ID - BRANDI) DBThe FIREBOAT OPERATOR STAT High Sensitivity Troponin-I results should be used in conjunction with other diagnostic information such as ECG, clinical observations and information, and patient symptoms to aid in the diagnosis of DC. Lab Interpretation Abnormal (test code = 71446-1) [facility] ([facility] Only[facility] 2021-06-12 01:35:31 Test Item Value Reference Range Interpretation Comments Troponin I HS (test 231 pg/ml See_Comment H [Automa levi code = 70400-9) message] The system which generated this result transmitted reference range : <=17. The reference range was not used to interpret this result as normal/abnormal . BRANDI (test code = Bead Wrapper ID - BRANDI) DBThe FIREBOAT OPERATOR STAT High Sensitivity Troponin-I results should be used in conjunction with other diagnostic information such as ECG, clinical observations and information, and patient symptoms to aid in the diagnosis of DC. Lab Interpretation Abnormal (test code = 69190-2) [facility]Jin Only[facility] 2021-06-12 01:35:31 Test Item Value Reference Range Interpretation Comments Troponin I HS (test 231 pg/ml See_Comment H [Automa levi code = 56444-1) message] The system which generated this result transmitted reference range : <=17. The reference range was not used to interpret this result as normal/abnormal . BRANDI (test code = Bead Wrapper ID - BRANDI) DBThe FIREBOAT OPERATOR STAT High Sensitivity Troponin-I results should be used in conjunction with other diagnostic information such as ECG, clinical observations and information, and patient symptoms to aid in the diagnosis of DC. Lab Interpretation Abnormal (test code = 94814-8) [facility]Jin Only[facility] 2021-06-12 01:35:31 Test Item Value Reference Range Interpretation Comments Troponin I HS (test 231 pg/ml See_Comment H [Automa levi code = 55228-4) message] The system which generated this result transmitted reference range : <=17. The reference range was not used to interpret this result as normal/abnormal . BRANDI (test code = Bead Wrapper ID - BRANDI) DBThe FIREBOAT OPERATOR STAT High Sensitivity Troponin-I results should be used in conjunction with other diagnostic information such as ECG, clinical observations and information, and patient symptoms to aid in the diagnosis of DC. Lab Interpretation Abnormal (test code = 81402-5) [facility]Jin Only) 2021-06-12 01:35:31 Test Item Value Reference Range Interpretation Comments Troponin I HS (test 231 pg/ml See_Comment H [Automa levi code = 56859-6) message] The system which generated this result transmitted reference range : <=17. The reference range was not used to interpret this result as normal/abnormal . BRANDI (test code = Bead Wrapper ID - BRANDI) DBThe FIREBOAT OPERATOR STAT High Sensitivity Troponin-I results should be used in conjunction with other diagnostic information such as ECG, clinical observations and information, and patient symptoms to aid in the diagnosis of DC. Lab Interpretation Abnormal (test code = 25338-1) [facility]/Jin Only) 2021-06-12 01:35:31 Test Item Value Reference Range Interpretation Comments Troponin I HS (test 231 pg/ml See_Comment H [Automa levi code = 72338-4) message] The system which generated this result transmitted reference range : <=17. The reference range was not used to interpret this result as normal/abnormal . BRANDI (test code = Bead Wrapper ID - BRANDI) DBThe FIREBOAT OPERATOR STAT High Sensitivity Troponin-I results should be used in conjunction with other diagnostic information such as ECG, clinical observations and information, and patient symptoms to aid in the diagnosis of DC. Lab Interpretation Abnormal (test code = 98640-8) [facility] TROPONIN [id number] 01:35:31 Test Item Value Reference Range Interpretation Comments HIGH SENSITIVITY 231 pg/ml See_Comment H [Automated message] TROPONIN I (test code The sy stem which = 9321714) generated this result transmitted ref erence range: <=17. Th e reference range was not used to int erpret this result as normal/abnormal . Bead Wrapper ID - DBThe FIREBOAT OPERATOR STAT High Sensitivity Troponin-I results should be used in conjunctionwith other diagnostic information such as ECG, clinical observations and information, and patient symptoms to aid in the diagnosis of DC.BASIC METABOLIC [id number] 01:29:11 Test Item Value Reference Range Interpretation [...] S NOT APPLICABLE FOR DIALYSIS PATIEN TS. Bead Wrapper ID - [id number] 01:28:34 Test Item Value Reference Range Interpretation Comments PHOSPHORUS (BEAKER) 4.6 mg/dL 2.3-4.7 Specimen slightly (test code = 604) hemolyzed Bead Wrapper ID - [id number] 01:28:33 Test Item Value Reference Range Interpretation Comments MAGNESIUM (BEAKER) 2.2 mg/dL 1.6-2.6 Specimen slightly (test code = 627) hemolyzed Bead Wrapper ID - DBLactic acid, wgykbn1564-70-04 01:26:32 Test Item Value Reference Range Interpretation Comments Lactate, Venous (test code = 0.87 mmol/L 0.50-2.20 2872) BRANDI (test code = BRANDI) Bead Wrapper ID - DB Lab Interpretation (test Normal code = 82976-3) [facility], [id number] 01:26:32 Test Item Value Reference Range Interpretation Comments Lactate, Venous (test code = 0.87 mmol/L 0.50-2.20 2872) BRANDI (test code = BRANDI) Bead Wrapper ID - DB Lab Interpretation (test Normal code = 72352-1) [facility] [id number] 01:26:32 Test Item Value Reference Range Interpretation Comments Lactate, Venous (test code = 0.87 mmol/L 0.50-2.20 2872) BRANDI (test code = BRANDI) Bead Wrapper ID - DB Lab Interpretation (test Normal code = 18052-4) [facility], [id number] 01:26:32 Test Item Value Reference Range Interpretation Comments Lactate, Venous (test code = 0.87 mmol/L 0.50-2.20 2872) BRANDI (test code = BRANDI) Bead Wrapper ID - DB Lab Interpretation (test Normal code = 24113-0) [facility], [id number] 01:26:32 Test Item Value Reference Range Interpretation Comments Lactate, Venous (test code = 0.87 mmol/L 0.50-2.20 2872) BRANDI (test code = BRANDI) Bead Wrapper ID - DB Lab Interpretation (test Normal code = 69139-0) [facility], [id number] 01:26:32 Test Item Value Reference Range Interpretation Comments Lactate, Venous (test code = 0.87 mmol/L 0.50-2.20 2872) BRANDI (test code = BRANDI) Bead Wrapper ID - DB Lab Interpretation (test Normal code = 87016-7) [facility], [id number] 01:26:32 Test Item Value Reference Range Interpretation Comments Lactate, Venous (test code = 0.87 mmol/L 0.50-2.20 2872) BRANDI (test code = BRANDI) Bead Wrapper ID - DB Lab Interpretation (test Normal code = 84102-2) [facility], [id number] 01:26:32 Test Item Value Reference Range Interpretation Comments Lactate, Venous (test code = 0.87 mmol/L 0.50-2.20 2872) BRANDI (test code = BRANDI) Bead Wrapper ID - DB Lab Interpretation (test Normal code = 60949-7) [facility], [id number] 01:26:32 Test Item Value Reference Range Interpretation Comments Lactate, Venous (test code = 0.87 mmol/L 0.50-2.20 2872) BRANDI (test code = BRANDI) Bead Wrapper ID - DB Lab Interpretation (test Normal code = 27733-3) [facility], [id number] 01:26:32 Test Item Value Reference Range Interpretation Comments Lactate, Venous (test code = 0.87 mmol/L 0.50-2.20 2872) BRANDI (test code = BRANDI) Bead Wrapper ID - DB Lab Interpretation (test Normal code = 86308-7) [facility], [id number] 01:26:32 Test Item Value Reference Range Interpretation Comments Lactate, Venous (test code = 0.87 mmol/L 0.50-2.20 2872) BRANDI (test code = BRANDI) Bead Wrapper ID - DB Lab Interpretation (test Normal code = 13602-7) [facility], [id number] 01:26:32 Test Item Value Reference Range Interpretation Comments Lactate, Venous (test code = 0.87 mmol/L 0.50-2.20 2872) BRANDI (test code = BRANDI) Bead Wrapper ID - DB Lab Interpretation (test Normal code = 60169-3) [facility], [id number] 01:26:32 Test Item Value Reference Range Interpretation Comments Lactate, Venous (test code = 0.87 mmol/L 0.50-2.20 2872) BRANDI (test code = BRANDI) Bead Wrapper ID - DB Lab Interpretation (test Normal code = 79333-1) [facility], [id number] 01:26:32 Test Item Value Reference Range Interpretation Comments Lactate, Venous (test code = 0.87 mmol/L 0.50-2.20 2872) BRANDI (test code = BRANDI) Bead Wrapper ID - DB Lab Interpretation (test Normal code = 59548-6) [facility] [id number] 01:26:32 Test Item Value Reference Range Interpretation Comments LACTATE BLOOD VENOUS (2) (BEAKER) 0.87 mmol/L 0.50-2.20 (test code = 2872) Bead Wrapper ID - DBPOCT-GLUCOSE [id number] 16:24:28 Test Item Value Reference Range Interpretation Comments POC-GLUCOSE METER 244 mg/dL 70-110 H : TESTED A T [facility] 6720 (BEAKER) (test code = [facility], 1538) 92605: Bead Wrapper/Techni kelle ID = [id number] for Re yes, Maranda POCT-GLUCOSE [id number] 11:29:05 Test Item Value Reference Range Interpretation Comments POC-GLUCOSE METER 168 mg/dL 70-110 H : TESTED A T [facility] 6720 (BEAKER) (test code = [facility], 1538) 16879: Bead Wrapper/Techni kelle ID = [id number] for Re yes, Maranda POCT-GLUCOSE [id number] 06:45:50 Test Item Value Reference Range Interpretation Comments POC-GLUCOSE METER 132 mg/dL 70-110 H : TESTED A T [facility] 6720 (BEAKER) (test code = [facility], 1538) 68982: Bead Wrapper/Techni kelle ID = [id number] for UG GHADA HAMLIN BASIC METABOLIC [id number] 05:08:08 Test Item Value Reference Range Interpretation [...] S NOT APPLICABLE FOR DIALYSIS PATIEN TS. Bead Wrapper ID - HIEN [id number] 04:56:38 Test Item Value Reference Range Interpretation Comments MAGNESIUM (BEAKER) (test code = 1.9 mg/dL 1.6-2.6 627) Bead Wrapper ID - HIEN LIRIANOORSMWDEVBHX3965-93-25 04:56:38 Test Item Value Reference Range Interpretation Comments PHOSPHORUS (BEAKER) (test code = 3.7 mg/dL 2.3-4.7 604) Bead Wrapper ID - HIEN MCBC W/PLT COUNT & AUTO [id number] 04:33:28 Test Item Value Reference Range Interpretation [...] = 2801) CBC W/PLT COUNT & AUTO [id number] 22:57:11 Test Item Value Reference Range Interpretation [...] = 2801) RAD, CHEST, 1 VIEW, NON [id number] 22:44:00Reason for exam:- >dyspneaShould this be performed at the bedside?->Yes [facility] : 1955 Sex: FFINAL REPORT [...] signed by: BRAXTON QUINTERO M.D. on 0:44 [id number]-[id number] 22:43:07 Test Item Value Reference Range Interpretation Comments POC-Glucose (test code = 118 mg/dL 70-110 H : [facility] [address] [place] [address], [address]: Bead Wrapper/Techni kelle ID = [id number] for MARFIL, JOSE ARMANDO Lab Interpretation (test Abnormal code = 83631-9) [facility]2022-03-09 22:43:07 Test Item Value Reference Range Interpretation Comments POC-Glucose (test code = 118 mg/dL 70-110 H : T ESTED AT [facility] 1855) [address] [place] [address], 770 30: Bead Wrapper/Techni kelle ID = [id number] for MARFIL, JOSE ARMANDO Lab Interpretation (test Abnormal code = 44370-2) [facility]2022-03-09 22:43:07 Test Item Value Reference Range Interpretation Comments POC-Glucose (test code = 118 mg/dL 70-110 H : T ESTED AT [facility] 1855) [address] [place] [address], 770 30: Bead Wrapper/Techni kelle ID = [id number] for MARFIL, JOSE ARMANDO Lab Interpretation (test Abnormal code = 53198-0) [facility]2022-03-09 22:43:07 Test Item Value Reference Range Interpretation Comments POC-Glucose (test code = 118 mg/dL 70-110 H : T ESTED AT [facility] 1855) [address] [place] [address], [address] 30: Bead Wrapper/Techni kelle ID = [id number] for MARFIL, JOSE ARMANDO Lab Interpretation (test Abnormal code = 16198-5) [facility]2022-03-09 22:43:07 Test Item Value Reference Range Interpretation Comments POC-Glucose (test code = 118 mg/dL 70-110 H : T ESTED AT [facility] 1855) [address] [place] [address], [address] 30: Bead Wrapper/Techni kelle ID = [id number] for MARFIL, JOSE ARMANDO Lab Interpretation (test Abnormal code = 42354-8) [facility]2022-03-09 22:43:07 Test Item Value Reference Range Interpretation Comments POC-Glucose (test code = 118 mg/dL 70-110 H : T ESTED AT [facility] 1855) [address] [place] [address], [address] 30: Bead Wrapper/Techni kelle ID = [id number] for MARFIL, JOSE ARMANDO Lab Interpretation (test Abnormal code = 48241-6) [facility]2022-03-09 22:43:07 Test Item Value Reference Range Interpretation Comments POC-Glucose (test code = 118 mg/dL 70-110 H : T ESTED AT [facility] 1855) [address] [place] [address], 7[address] 30: Bead Wrapper/Techni kelle ID = [id number] for MARFIL, JOSE ARMANDO Lab Interpretation (test Abnormal code = 89576-1) [facility]2022-03-09 22:43:07 Test Item Value Reference Range Interpretation Comments POC-Glucose (test code = 118 mg/dL 70-110 H : T ESTED AT [facility] 1855) [address] [place] [address], 7[address] 30: Bead Wrapper/Techni kelle ID = [id number] for MARFIL, JOSE ARMANDO Lab Interpretation (test Abnormal code = 31658-4) [facility]2022-03-09 22:43:07 Test Item Value Reference Range Interpretation Comments POC-Glucose (test code = 118 mg/dL 70-110 H : T ESTED AT [facility] 1855) [address] [place] [address], 770 30: Bead Wrapper/Techni kelle ID = [id number] for MARFIL, JOSE ARMANDO Lab Interpretation (test Abnormal code = 33185-4) [facility]2022-03-09 22:43:07 Test Item Value Reference Range Interpretation Comments POC-Glucose (test code = 118 mg/dL 70-110 H : T ESTED AT [facility] 1855) [address] [place] [address], 7[address] 30: Bead Wrapper/Techni kelle ID = [id number] for MARFIL, JOSE ARMANDO Lab Interpretation (test Abnormal code = 25811-7) [facility]GF[facility]KR3023[facility] 22:43:07 Test Item Value Reference Range Interpretation Comments POC-Glucose (test code = 118 mg/dL 70-110 H : T ESTED AT [facility] 1855) [address] [place] [address], 770 30: Bead Wrapper/Techni kelle ID = [id number] for MARFIL, JOSE ARMANDO Lab Interpretation (test Abnormal code = 79571-3) [facility] [id number] 22:43:07 Test Item Value Reference Range Interpretation Comments POC-Glucose (test code = 118 mg/dL 70-110 H : T ESTED AT [facility] 1855) [address] [place] [address], 770 30: Bead Wrapper/Techni kelle ID = [id number] for MARFIL, JOSE ARMANDO Lab Interpretation (test Abnormal code = 05253-8) [facility]2022-03-09 22:43:07 Test Item Value Reference Range Interpretation Comments POC-Glucose (test code = 118 mg/dL 70-110 H : T ESTED AT [facility] 1855) [address] [place] [address], 770 30: Bead Wrapper/Techni kelle ID = [id number] for MARFIL, JOSE ARMANDO Lab Interpretation (test Abnormal code = 21605-4) [facility] CenterIULDDAO2742-62-10 22:43:07 Test Item Value Reference Range Interpretation Comments POC-Glucose (test code = 118 mg/dL 70-110 H : T ESTED AT [facility] 1855) [address] [place] [address], 770 30: Bead Wrapper/Techni kelle ID = [id number] for MARFIL, JOSE ARMANDO Lab Interpretation (test Abnormal code = 93950-1) [facility] CenterAJMXIBO7668-17-30 22:43:07 Test Item Value Reference Range Interpretation Comments POC-GLUCOSE (BEAKER) 118 mg/dL 70-110 H : TESTE D AT [facility] 6720 (test code = 1855) [facility], [address]: Bead Wrapper/Techni kelle ID = [id number] for MARF IL, JOSE ARMANDO GJDE-[id number] 22:43:06 Test Item Value Reference Range Interpretation Comments POC-Hemoglobin (test code 8.2 g/dL 12.0-15.0 L : TESTED AT [facility] = 1856) [address] [place] [address], [address] 30: Bead Wrapper/Techni kelle ID = [id number] for MARFIL, JOSE ARMANDO Lab Interpretation (test Abnormal code = 94948-3) [facility]-[id number] 22:43:06 Test Item Value Reference Range Interpretation Comments POC-Hematocrit (test code 24 % 36-45 L : = 1857) Bead Wrapper/Techni kelle ID = [id number] for MARFIL, JOSE ARMANDO Lab Interpretation (test Abnormal code = 75110-5) [facility]-[id number] 22:43:06 Test Item Value Reference Range Interpretation Comments POC-Hemoglobin (test code 8.2 g/dL 12.0-15.0 L : TESTED AT [facility] = 1856) [address] [place] [address], 770 30: Bead Wrapper/Techni kelle ID = [id number] for MARFIL, JOSE ARMANDO Lab Interpretation (test Abnormal code = 94280-7) [facility]-[id number] 22:43:06 Test Item Value Reference Range Interpretation Comments POC-Hematocrit (test code 24 % 36-45 L : = 1857) Bead Wrapper/Techni kelle ID = [id number] for MARFIL, JOSE ARMANDO Lab Interpretation (test Abnormal code = 97462-3) [facility]-[id number] 22:43:06 Test Item Value Reference Range Interpretation Comments POC-Hemoglobin (test code 8.2 g/dL 12.0-15.0 L : [facility] 1856[facility] [address] [place] [address], 770 30: Bead Wrapper/Techni kelle ID = [id number] for MARFIL, JOSE ARMANDO Lab Interpretation (test Abnormal code = 63651-1) [facility]-[id number] 22:43:06 Test Item Value Reference Range Interpretation Comments POC-Hematocrit (test code 24 % 36-45 L : = 1857) Bead Wrapper/Techni kelle ID = [id number] for MARFIL, JOSE ARMANDO Lab Interpretation (test Abnormal code = 98583-9) [facility]-[id number] 22:43:06 Test Item Value Reference Range Interpretation Comments POC-Hemoglobin (test code 8.2 g/dL 12.0-15.0 L : TESTED AT [facility] = 1856) [address] [place] [address], 770 30: Bead Wrapper/Techni kelle ID = [id number] for MARFIL, JOSE ARMANDO Lab Interpretation (test Abnormal code = 46250-1) [facility]-[id number] 22:43:06 Test Item Value Reference Range Interpretation Comments POC-Hematocrit (test code 24 % 36-45 L : = 1857) Bead Wrapper/Techni kelle ID = [id number] for MARFIL, JOSE ARMANDO Lab Interpretation (test Abnormal code = 24416-2) [facility]-[id number] 22:43:06 Test Item Value Reference Range Interpretation Comments POC-Hemoglobin (test code 8.2 g/dL 12.0-15.0 L : TESTED AT [facility] = 1856) [address] [place] [address], 770 30: Bead Wrapper/Techni kelle ID = [id number] for MARFIL, JOSE ARMANDO Lab Interpretation (test Abnormal code = 53911-3) [facility]-[id number] 22:43:06 Test Item Value Reference Range Interpretation Comments POC-Hematocrit (test code 24 % 36-45 L : = 1857) Bead Wrapper/Techni kelle ID = [id number] for MARFIL, JOSE ARMANDO Lab Interpretation (test Abnormal code = 53982-2) [facility]-[id number] 22:43:06 Test Item Value Reference Range Interpretation Comments POC-Hemoglobin (test code 8.2 g/dL 12.0-15.0 L : [facility] 1856) [address] [place] [address], 7[address] 30: Bead Wrapper/Techni kelle ID = [id number] for MARFIL, JOSE ARMANDO Lab Interpretation (test Abnormal code = 15635-3) [facility]-[id number] 22:43:06 Test Item Value Reference Range Interpretation Comments POC-Hematocrit (test code 24 % 36-45 L : = 1857) Bead Wrapper/Techni kelle ID = [id number] for MARFIL, JOSE ARMANDO Lab Interpretation (test Abnormal code = 88596-5) [facility]-[id number] 22:43:06 Test Item Value Reference Range Interpretation Comments POC-Hemoglobin (test code 8.2 g/dL 12.0-15.0 L : TESTED AT [facility] = 1856) [address] [place] [address], 7[address] 30: Bead Wrapper/Techni kelle ID = [id number] for MARFIL, JOSE ARMANDO Lab Interpretation (test Abnormal code = 39052-2) [facility]-[id number] 22:43:06 Test Item Value Reference Range Interpretation Comments POC-Hematocrit (test code 24 % 36-45 L : = 1857) Bead Wrapper/Techni kelle ID = [id number] for MARFIL, JOSE ARMANDO Lab Interpretation (test Abnormal code = 84620-7) [facility]-[id number] 22:43:06 Test Item Value Reference Range Interpretation Comments POC-Hemoglobin (test code 8.2 g/dL 12.0-15.0 L : TESTED AT [facility] = 1856) [address] [place] [address], 7[address] 30: Bead Wrapper/Techni kelle ID = [id number] for MARFIL, JOSE ARMANDO Lab Interpretation (test Abnormal code = 01714-5) [facility]-[id number] 22:43:06 Test Item Value Reference Range Interpretation Comments POC-Hematocrit (test code 24 % 36-45 L : = 1857) Bead Wrapper/Techni kelle ID = [id number] for MARFIL, JOSE ARMANDO Lab Interpretation (test Abnormal code = 14640-2) [facility]-[id number] 22:43:06 Test Item Value Reference Range Interpretation Comments POC-Hemoglobin (test code 8.2 g/dL 12.0-15.0 L : TESTED AT [facility] = 1856) [address] [place] [address], 770 30: Bead Wrapper/Techni kelle ID = [id number] for MARFIL, JOSE ARMANDO Lab Interpretation (test Abnormal code = 35340-6) [facility]-[id number] 22:43:06 Test Item Value Reference Range Interpretation Comments POC-Hematocrit (test code 24 % 36-45 L : = 1857) Bead Wrapper/Techni kelle ID = [id number] for MARFIL, JOSE ARMANDO Lab Interpretation (test Abnormal code = 65475-6) [facility]-[id number] 22:43:06 Test Item Value Reference Range Interpretation Comments POC-Hemoglobin (test code 8.2 g/dL 12.0-15.0 L : TESTED AT [facility] = 1856) [address] [place] [address], [address]: Bead Wrapper/Techni kelle ID = [id number] for MARFIL, JOSE ARMANDO Lab Interpretation (test Abnormal code = 56855-6) [facility]-[id number] 22:43:06 Test Item Value Reference Range Interpretation Comments POC-Hematocrit (test code 24 % 36-45 L : = 1857) Bead Wrapper/Techni kelle ID = [id number] for MARFIL, JOSE ARMANDO Lab Interpretation (test Abnormal code = 48128-9) [facility]-[id number] 22:43:06 Test Item Value Reference Range Interpretation Comments POC-Hemoglobin (test code 8.2 g/dL 12.0-15.0 L : TESTED AT [facility] = 1856) [address] [place] [address], 7[address] 30: Bead Wrapper/Techni kelle ID = [id number] for MARFIL, JOSE ARMANDO Lab Interpretation (test Abnormal code = 49542-4) [facility]-[id number] 22:43:06 Test Item Value Reference Range Interpretation Comments POC-Hematocrit (test code 24 % 36-45 L : = 1857) Bead Wrapper/Techni kelle ID = [id number] for MARFIL, JOSE ARMANDO Lab Interpretation (test Abnormal code = 00229-6) [facility]-[id number] 22:43:06 Test Item Value Reference Range Interpretation Comments POC-Hemoglobin (test code 8.2 g/dL 12.0-15.0 L : [facility] 1856) [address] [place] [address], [address] 30: Bead Wrapper/Techni kelle ID = [id number] for MARFIL, JOSE ARMANDO Lab Interpretation (test Abnormal code = 25851-8) [facility]-[id number] 22:43:06 Test Item Value Reference Range Interpretation Comments POC-Hematocrit (test code 24 % 36-45 L : = 1857) Bead Wrapper/Techni kelle ID = [id number] for MARFIL, JOSE ARMANDO Lab Interpretation (test Abnormal code = 38544-4) [facility][id number] 22:43:06 Test Item Value Reference Range Interpretation Comments POC-Hemoglobin (test code 8.2 g/dL 12.0-15.0 L : TESTED AT [facility] [facility] = 1856) 6720 [facility], 770 30: Bead Wrapper/Techni kelle ID = [id number] for MARFIL, JOSE ARMANDO Lab Interpretation (test Abnormal code = 69398-4) [facility]-VMHWGRZRKP1255-45-09 22:43:06 Test Item Value Reference Range Interpretation Comments POC-Hematocrit (test code 24 % 36-45 L : = 1857) Bead Wrapper/Techni kelle ID = [id number] for MARFIL, JOSE ARMANDO Lab Interpretation (test Abnormal code = 53477-1) [facility]-[id number] 22:43:06 Test Item Value Reference Range Interpretation Comments POC-Hemoglobin (test code 8.2 g/dL 12.0-15.0 L : TESTED AT [facility] = 1856) [address] [place] [address], 770 30: Bead Wrapper/Techni eklle ID = [id number] for MARFIL, JOSE ARMANDO Lab Interpretation (test Abnormal code = 54555-5) [facility]GylcvuOBZR-[id number] 22:43:06 Test Item Value Reference Range Interpretation Comments POC-Hematocrit (test code 24 % 36-45 L : = 1857) Bead Wrapper/Techni kelle ID = [id number] for MARFIL, JOSE ARMANDO Lab Interpretation (test Abnormal code = 32817-9) [facility] HospitalSawyfxIKCO-HHPWWTIBUZ7297-20-09 22:43:06 Test Item Value Reference Range Interpretation Comments POC-HEMOGLOBIN 8.2 g/dL 12.0-15.0 L : TESTED AT [facility] 6720 (BEAKER) (test code = QUIQUEOK Nola [facility], 1856) [address]: Bead Wrapper/Techni kelle ID = [id number] for MARF IL, JOSE ARMANDO SFFN-[id number] 22:43:06 Test Item Value Reference Range Interpretation Comments POC-HEMATOCRIT 24 % 36-45 L : Bead Wrapper/Te chnician ID = (BEAKER) (test code = 121696 for MARFIL, JOSE ARMANDO 1857) [facility]-Njvymuyql9542-02-09 22:43:05 Test Item Value Reference Range Interpretation Comments POC-Potassium (test code 3.4 meq/L 3.6-5.5 L : T ESTED AT [facility] = 1540) [address] [place] [address], 770 30: Bead Wrapper/Techni kelle ID = [id number] for MARFIL, JOSE ARMANDO Lab Interpretation (test Abnormal code = 69388-2) [facility]-Vqckxu5057-55-38 22:43:05 Test Item Value Reference Range Interpretation Comments POC-Sodium (test code = 137 meq/L 135-148 : TE STED AT [facility] 1542) [address] [place] [address], 770 30: Bead Wrapper/Techni kelle ID = [id number] for MARFIL, JOSE ARMANDO Lab Interpretation (test Normal code = 72059-3) [facility]-Vejuriwxk3483-94-38 22:43:05 Test Item Value Reference Range Interpretation Comments POC-Potassium (test code 3.4 meq/L 3.6-5.5 L : T ESTED AT [facility] = 1540) [address] [place] [address], 770 30: Bead Wrapper/Techni kelle ID = [id number] for MARFIL, JOSE ARMANDO Lab Interpretation (test Abnormal code = 60281-2) [facility]-Gsczbf0907-17-44 22:43:05 Test Item Value Reference Range Interpretation Comments POC-Sodium (test code = 137 meq/L 135-148 : TE STED AT [facility] 1542) [address] [place] [address], 770 30: Bead Wrapper/Techni kelle ID = [id number] for MARFIL, JOSE ARMANDO Lab Interpretation (test Normal code = 21245-6) [facility]-Tdvszupdb8611-68-05 22:43:05 Test Item Value Reference Range Interpretation Comments POC-Potassium (test code 3.4 meq/L 3.6-5.5 L : T ESTED AT [facility] = 1540) [address] [place] [address], 770 30: Bead Wrapper/Techni kelle ID = [id number] for MARFIL, JOSE ARMANDO Lab Interpretation (test Abnormal code = 47957-5) [facility]-Nwgiyo0675-56-08 22:43:05 Test Item Value Reference Range Interpretation Comments POC-Sodium (test code = 137 meq/L 135-148 : TE STED AT [facility] 1542) [address] [place] [address], 770 30: Bead Wrapper/Techni kelle ID = [id number] for MARFIL, JOSE ARMANDO Lab Interpretation (test Normal code = 83641-9) [facility]-Hitvjqkkd3831-95-02 22:43:05 Test Item Value Reference Range Interpretation Comments POC-Potassium (test code 3.4 meq/L 3.6-5.5 L : T ESTED AT [facility] = 1540) [address] [place] [address], 770 30: Bead Wrapper/Techni kelle ID = [id number] for MARFIL, JOSE ARMANDO Lab Interpretation (test Abnormal code = 90723-3) [facility] 22:43:05 Test Item Value Reference Range Interpretation Comments POC-Sodium (test code = 137 meq/L 135-148 : TE STED AT [facility] 1542) [address] [place] [address], 770 30: Bead Wrapper/Techni kelle ID = [id number] for MARFIL, JOSE ARMANDO Lab Interpretation (test Normal code = 38182-7) [facility]-Ksyugagss8717-61-49 22:43:05 Test Item Value Reference Range Interpretation Comments POC-Potassium (test code 3.4 meq/L 3.6-5.5 L : T ESTED AT [facility] = 1540) [address] [place] [address], 770 30: Bead Wrapper/Techni kelle ID = [id number] for MARFIL, JOSE ARMANDO Lab Interpretation (test Abnormal code = 25000-1) [facility]-[id number] 22:43:05 Test Item Value Reference Range Interpretation Comments POC-Sodium (test code = 137 meq/L 135-148 : TE STED AT [facility] 1542) [address] [place] [address], 770 30: Bead Wrapper/Techni kelle ID = [id number] for MARFIL, JOSE ARMANDO Lab Interpretation (test Normal code = 18485-6) [facility]-Sgxorglpl2006-18-39 22:43:05 Test Item Value Reference Range Interpretation Comments POC-Potassium (test code 3.4 meq/L 3.6-5.5 L : T ESTED AT [facility] = 1540) [address] [place] [address], [facility] 30: Bead Wrapper/Techni kelle ID = [id number] for MARFIL, JOSE ARMANDO Lab Interpretation (test Abnormal code = 29102-1) [facility]-[id number] 22:43:05 Test Item Value Reference Range Interpretation Comments POC-Sodium (test code = 137 meq/L 135-148 : TE STED AT [facility] 1542) [address] [place] [address], [facility] 30: Bead Wrapper/Techni kelle ID = [id number] for MARFIL, JOSE ARMANDO Lab Interpretation (test Normal code = 30206-4) [facility]-Legyirqfq4724-56-99 22:43:05 Test Item Value Reference Range Interpretation Comments POC-Potassium (test code 3.4 meq/L 3.6-5.5 L : T ESTED AT [facility] = 1540) [address] [place] [address], 770 30: Bead Wrapper/Techni kelle ID = [id number] for MARFIL, JOSE ARMANDO Lab Interpretation (test Abnormal code = 50182-7) [facility]-Bcbtkn4323-94-48 22:43:05 Test Item Value Reference Range Interpretation Comments POC-Sodium (test code = 137 meq/L 135-148 : TE STED AT [facility] 1542) [address] [place] [address], [facility] 30: Bead Wrapper/Techni kelle ID = [id number] for MARFIL, JOSE ARMANDO Lab Interpretation (test Normal code = 23159-1) [facility]-Kjiwghdhm3550-22-27 22:43:05 Test Item Value Reference Range Interpretation Comments POC-Potassium (test code 3.4 meq/L 3.6-5.5 L : T ESTED AT [facility] = 1540) [address] [place] [address], 770 30: Bead Wrapper/Techni kelle ID = [id number] for MARFIL, JOSE ARMANDO Lab Interpretation (test Abnormal code = 69537-9) [facility]3638[facility]48-45 22:43:05 Test Item Value Reference Range Interpretation Comments POC-Sodium (test code = 137 meq/L 135-148 : TE STED AT [facility] 1542) [address] [place] [address], 770 30: Bead Wrapper/Techni kelle ID = [id number] for MARFIL, JOSE ARMANDO Lab Interpretation (test Normal code = 08717-4) [facility]-Djijazjfy2247-77-80 22:43:05 Test Item Value Reference Range Interpretation Comments POC-Potassium (test code 3.4 meq/L 3.6-5.5 L : T ESTED AT [facility] = 1540) [address] [place] [address], 770 30: Bead Wrapper/Techni kelle ID = [id number] for MARFIL, JOSE ARMANDO Lab Interpretation (test Abnormal code = 00015-1) [facility]Eudabh6554-79-67 22:43:05 Test Item Value Reference Range Interpretation Comments POC-Sodium (test code = 137 meq/L 135-148 : TE STED AT [facility] 1542) [address] [place] [address], 770 30: Bead Wrapper/Techni kelle ID = [id number] for MARFIL, JOSE ARMANDO Lab Interpretation (test Normal code = 85679-2) [facility]-Lhlkamrof3302-22-32 22:43:05 Test Item Value Reference Range Interpretation Comments POC-Potassium (test code 3.4 meq/L 3.6-5.5 L : T ESTED AT [facility] = 1540) [address] [place] [address], 770 30: Bead Wrapper/Techni kelle ID = [id number] for MARFIL, JOSE ARMANDO Lab Interpretation (test Abnormal code = 87422-2) [facility]Rperlg2133-38-11 22:43:05 Test Item Value Reference Range Interpretation Comments POC-Sodium (test code = 137 meq/L 135-148 : TE STED AT [facility] 1542) [address] [place] [address], 770 30: Bead Wrapper/Techni kelle ID = [id number] for MARFIL, JOSE ARMANDO Lab Interpretation (test Normal code = 20358-3) [facility]Voxfoqxbf5105-64-66 22:43:05 Test Item Value Reference Range Interpretation Comments POC-Potassium (test code 3.4 meq/L 3.6-5.5 L : T ESTED AT [facility] = 1540) [address] [place] [address], 770 30: Bead Wrapper/Techni kelle ID = [id number] for MARFIL, JOSE ARMANDO Lab Interpretation (test Abnormal code = 69112-0) [facility]-Aiitut7587-39-32 22:43:05 Test Item Value Reference Range Interpretation Comments POC-Sodium (test code = 137 meq/L 135-148 : TE STED AT [facility] 1542) [address] [place] [address], [facility] 30: Bead Wrapper/Techni kelle ID = [id number] for MARFIL, JOSE ARMANDO Lab Interpretation (test Normal code = 85642-8) [facility]-Eusekkrbu5766-32-11 22:43:05 Test Item Value Reference Range Interpretation Comments POC-Potassium (test code 3.4 meq/L 3.6-5.5 L : T ESTED AT [facility] = 1540) [address] [place] [address], [facility] 30: Bead Wrapper/Techni kelle ID = [id number] for MARFIL, JOSE ARMANDO Lab Interpretation (test Abnormal code = 19067-2) [facility]-[id number] 22:43:05 Test Item Value Reference Range Interpretation Comments POC-Sodium (test code = 137 meq/L 135-148 : TE STED AT [facility] 1542) [address] [place] [address], [facility] 30: Bead Wrapper/Techni kelle ID = [id number] for MARFIL, JOSE ARMANDO Lab Interpretation (test Normal code = 76895-9) [facility]-Agmfnasvw0895-31-04 22:43:05 Test Item Value Reference Range Interpretation Comments POC-Potassium (test code 3.4 meq/L 3.6-5.5 L : T ESTED AT [facility] = 1540) [address] [place] [address], [facility] 30: Bead Wrapper/Techni kelle ID = [id number] for MARFIL, JOSE ARMANDO Lab Interpretation (test Abnormal code = 48422-8) [facility]-[id number] 22:43:05 Test Item Value Reference Range Interpretation Comments POC-Sodium (test code = 137 meq/L 135-148 : TE STED AT [facility] 1542) [address] [facility], 770 30: Bead Wrapper/Techni kelle ID = [id number] for MARFIL, JOSE ARMANDO Lab Interpretation (test Normal code = 95909-9) [facility]-Sqvpehdex8295-69-36 22:43:05 Test Item Value Reference Range Interpretation Comments POC-Potassium (test code 3.4 meq/L 3.6-5.5 L : T ESTED AT [facility] = 1540) 67[address] [facility], 770 30: Bead Wrapper/Techni kelle ID = [id number] for MARFIL, JOSE ARMANDO Lab Interpretation (test Abnormal code = 95360-9) [facility]-Lrhivh0246-54-82 22:43:05 Test Item Value Reference Range Interpretation Comments POC-Sodium (test code = 137 meq/L 135-148 : TE STED AT [facility] 1542) [address] [place] [address], 770 30: Bead Wrapper/Techni kelle ID = [id number] for MARFIL, JOSE ARMANDO Lab Interpretation (test Normal code = 44689-3) [facility]-[id number] 22:43:05 Test Item Value Reference Range Interpretation Comments POC-SODIUM (BEAKER) 137 meq/L 135-148 : TESTED AT [facility] 6720 (test code = 1542) [facility] [place], [address]: Bead Wrapper/Techni kelle ID = [id number] for MARF IL, JOSE ARMANDO DCBG-[id number] 22:43:05 Test Item Value Reference Range Interpretation Comments POC-POTASSIUM 3.4 meq/L 3.6-5.5 L : TESTED AT [facility] 6720 (BEAKER) (test code [facility], = 1540) [address]: Bead Wrapper/Techni kelle ID = [id number] for MARF IL, JOSE ARMANDO POC-Blood gases, [id number] 22:42:59 Test Item Value Reference Range Interpretation Comments Temp. Celsius-POC (test 101.3 code = 1834) FIO2-POC (test code = 28 1835) pH, Venous-POC (test 7.484 7.320-7.420 H : TESTE D AT [facility] code = 1842) 6720 [facility], [address] PCO2, Venous-POC (test 39.4 See_Comment L If [...] mated message] code = 1844) The system [employer] D[employer] generated this result transmit levi reference range : 25.0 - 40.0 mm Hg. The reference r alba was not used to interpret this result as normal/abnormal . SO2, Venous-POC (test 87.0 % 40.0-70.0 H code = 1845) HCO3, Venous-POC (test 29.3 meq/L 21.0-29.0 H code = 1846) BE, Venous-POC (test 6.0 meq/L -2.0-3.0 H : code = 1847) Bead Wrapper/Techni kelle ID = [id number] for JOSE ARMANDO CELIS Lab Interpretation Abnormal (test code = 68935-9) [facility]-Blood gases, [id number] 22:42:59 Test Item Value Reference Range Interpretation Comments Temp. Celsius-POC (test 101.3 code = 1834) FIO2-POC (test code = 28 1835) pH, Venous-POC (test 7.484 7.320-7.420 H : TESTE D AT [facility] code = 1842) 67[address] [facility], [address] PCO2, Venous-POC (test 39.4 See_Comment L If [...] mated message] code = 1844) The system [employer] D[employer] generated this result transmit levi reference range : 25.0 - 40.0 mm Hg. The reference r alba was not used to interpret this result as normal/abnormal . SO2, Venous-POC (test 87.0 % 40.0-70.0 H code = 1845) HCO3, Venous-POC (test 29.3 meq/L 21.0-29.0 H code = 1846) BE, Venous-POC (test 6.0 meq/L -2.0-3.0 H : code = 1847) Bead Wrapper/Techni kelle ID = [id number] for MARFIL, JOSE ARMANDO Lab Interpretation Abnormal (test code = 67168-3) [facility]-Blood gases, [id number] 22:42:59 Test Item Value Reference Range Interpretation Comments Temp. Celsius-POC (test 101.3 code = 1834) FIO2-POC (test code = 28 1835) pH, Venous-POC (test 7.484 7.320-7.420 H : TESTE D AT [facility] code = 1842) 6720 [facility], [address] PCO2, Venous-POC (test 39.4 See_Comment L If [...] mated message] code = 1844) The system [employer] Education Systems[employer] h generated this result transmit levi reference range : 25.0 - 40.0 mm Hg. The reference r alba was not used to interpret this result as normal/abnormal . SO2, Venous-POC (test 87.0 % 40.0-70.0 H code = 1845) HCO3, Venous-POC (test 29.3 meq/L 21.0-29.0 H code = 1846) BE, Venous-POC (test 6.0 meq/L -2.0-3.0 H : code = 1847) Bead Wrapper/Techni kelle ID = [id number] for MARFIL, JOSE ARMANDO Lab Interpretation Abnormal (test code = 06022-3) [facility]-Blood gases, [id number] 22:42:59 Test Item Value Reference Range Interpretation Comments Temp. Celsius-POC (test 101.3 code = 1834) FIO2-POC (test code = 1834) pH, Venous-POC (test 7.484 7.320-7.420 H : TESTE D AT [facility] code = 1842) [address] [facility] [place], [address] PCO2, Venous-POC (test 39.4 See_Comment L If [...] mated message] code = 1844) The system [employer] D[employer] generated this result transmit levi reference range : 25.0 - 40.0 mm Hg. The reference r alba was not used to interpret this result as normal/abnormal . SO2, Venous-POC (test 87.0 % 40.0-70.0 H code = 1845) HCO3, Venous-POC (test 29.3 meq/L 21.0-29.0 H code = 1846) BE, Venous-POC (test 6.0 meq/L -2.0-3.0 H : code = 1847) Bead Wrapper/Techni kelle ID = [id number] for HERBERT CELISE Lab Interpretation Abnormal (test code = 90632-2) [facility]-Blood gases, [id number] 22:42:59 Test Item Value Reference Range Interpretation Comments Temp. Celsius-POC (test 101.3 code = 1834) FIO2-POC (test code = 1834) pH, Venous-POC (test 7.484 7.320-7.420 H : TESTE D AT [facility] code = 184) [address] [facility] [place] [place], [address] PCO2, Venous-POC (test 39.4 See_Comment L If [...] mated message] code = 1844) The system [employer] D[employer] generated this result transmit levi reference range : 25.0 - 40.0 mm Hg. The reference r alba was not used to interpret this result as normal/abnormal . SO2, Venous-POC (test 87.0 % 40.0-70.0 H code = 1845) HCO3, Venous-POC (test 29.3 meq/L 21.0-29.0 H code = 1846) BE, Venous-POC (test 6.0 meq/L -2.0-3.0 H : code = 1847) Bead Wrapper/Techni kelle ID = [id number] for VIMAL JOSE ARMANDO Lab Interpretation Abnormal (test code = 73926-0) [facility]-Blood gases, [id number] 22:42:59 Test Item Value Reference Range Interpretation Comments Temp. Celsius-POC (test 101.3 code = 1834) FIO2-POC (test code = 28 1835) pH, Venous-POC (test 7.484 7.320-7.420 H : TESTE D AT [facility] code = 1842) [address] [facility] [place], [address] PCO2, Venous-POC (test 39.4 See_Comment L If [...] mated message] code = 1844) The system [employer] generated this result transmit levi reference range : 25.0 - 40.0 mm Hg. The reference r alba was not used to interpret this result as normal/abnormal . SO2, Venous-POC (test 87.0 % 40.0-70.0 H code = 1845) HCO3, Venous-POC (test 29.3 meq/L 21.0-29.0 H code = 1846) BE, Venous-POC (test 6.0 meq/L -2.0-3.0 H : code = 1847) Bead Wrapper/Techni kelle ID = [id number] for HERBERT CELISE Lab Interpretation Abnormal (test code = 06432-6) [facility]-Blood gases, [id number] 22:42:59 Test Item Value Reference Range Interpretation Comments Temp. Celsius-POC (test 101.3 code = 1834) FIO2-POC (test code = 28 1834) pH, Venous-POC (test 7.484 7.320-7.420 H : TESTE D AT [facility] code = 1842) [address] [facility] [place] [place], [address] PCO2, Venous-POC (test 39.4 See_Comment L If [...] mated message] code = 1844) The system [employer] D[employer] generated this result transmit levi reference range : 25.0 - 40.0 mm Hg. The reference r alba was not used to interpret this result as normal/abnormal . SO2, Venous-POC (test 87.0 % 40.0-70.0 H code = 1845) HCO3, Venous-POC (test 29.3 meq/L 21.0-29.0 H code = 1846) BE, Venous-POC (test 6.0 meq/L -2.0-3.0 H : code = 1847) Bead Wrapper/Techni kelle ID = [id number] for JOSE ARMANDO CELIS Lab Interpretation Abnormal (test code = 72057-1) [facility]-Blood gases, [id number] 22:42:59 Test Item Value Reference Range Interpretation Comments Temp. Celsius-POC (test 101.3 code = 1834) FIO2-POC (test code = 28 1834) pH, Venous-POC (test 7.484 7.320-7.420 H : TESTE D AT [facility] code = 1842) [address] [facility] [place] [place], [address] PCO2, Venous-POC (test 39.4 See_Comment L If [...] mated message] code = 1844) The system [employer] D[employer] generated this result transmit levi reference range : 25.0 - 40.0 mm Hg. The reference r alba was not used to interpret this result as normal/abnormal . SO2, Venous-POC (test 87.0 % 40.0-70.0 H code = 1845) HCO3, Venous-POC (test 29.3 meq/L 21.0-29.0 H code = 1846) BE, Venous-POC (test 6.0 meq/L -2.0-3.0 H : code = 1847) Bead Wrapper/Techni kelle ID = [id number] for VIMAL JOSE ARMANDO Lab Interpretation Abnormal (test code = 84586-5) [facility]-Blood gases, [id number] 22:42:59 Test Item Value Reference Range Interpretation Comments Temp. Celsius-POC (test 101.3 code = 1834) FIO2-POC (test code = 28 1835) pH, Venous-POC (test 7.484 7.320-7.420 H : TESTE D AT [facility] code = 1842) [address] [facility] [place] [place], [address] PCO2, Venous-POC (test 39.4 See_Comment L If [...] mated message] code = 1844) The system [employer] D[employer] generated this result transmit levi reference range : 25.0 - 40.0 mm Hg. The reference r alba was not used to interpret this result as normal/abnormal . SO2, Venous-POC (test 87.0 % 40.0-70.0 H code = 1845) HCO3, Venous-POC (test 29.3 meq/L 21.0-29.0 H code = 1846) BE, Venous-POC (test 6.0 meq/L -2.0-3.0 H : code = 1847) Bead Wrapper/Techni kelle ID = [id number] for MARFIL, JOSE ARMANDO Lab Interpretation Abnormal (test code = 68129-6) [facility]-Blood gases, [id number] 22:42:59 Test Item Value Reference Range Interpretation Comments Temp. Celsius-POC (test 101.3 code = 1834) FIO2-POC (test code = 28 1834) pH, Venous-POC (test 7.484 7.320-7.420 H : TESTE D AT [facility] code = 1842) [address] [facility] [place], [address] PCO2, Venous-POC (test 39.4 See_Comment L If [...] mated message] code = 1844) The system [employer] D[employer] generated this result transmit levi reference range : 25.0 - 40.0 mm Hg. The reference r alba was not used to interpret this result as normal/abnormal . SO2, Venous-POC (test 87.0 % 40.0-70.0 H code = 1845) HCO3, Venous-POC (test 29.3 meq/L 21.0-29.0 H code = 1846) BE, Venous-POC (test 6.0 meq/L -2.0-3.0 H : code = 1847) Bead Wrapper/Techni kelle ID = [id number] for MARFIL, JOSE ARMANDO Lab Interpretation Abnormal (test code = 26584-7) [facility]-Blood gases, [id number] 22:42:59 Test Item Value Reference Range Interpretation Comments Temp. Celsius-POC (test 101.3 code = 1834) FIO2-POC (test code = 28 1834) pH, Venous-POC (test 7.484 7.320-7.420 H : TESTE D AT [facility] code = 1842) [address] [facility] [place] [place], [address] PCO2, Venous-POC (test 39.4 See_Comment L If [...] mated message] code = 1844) The system [employer] D[employer] generated this result transmit levi reference range : 25.0 - 40.0 mm Hg. The reference r alba was not used to interpret this result as normal/abnormal . SO2, Venous-POC (test 87.0 % 40.0-70.0 H code = 1845) HCO3, Venous-POC (test 29.3 meq/L 21.0-29.0 H code = 1846) BE, Venous-POC (test 6.0 meq/L -2.0-3.0 H : code = 1847) Bead Wrapper/Techni kelle ID = [id number] for JOSE ARMANDO CELIS Lab Interpretation Abnormal (test code = 87059-2) [facility]-Blood gases, [id number] 22:42:59 Test Item Value Reference Range Interpretation Comments Temp. Celsius-POC (test 101.3 code = 1834) FIO2-POC (test code = 28 1835) pH, Venous-POC (test 7.484 7.320-7.420 H : TESTE D AT [facility] code = 1842) [address] [facility] [place] [place], [address] PCO2, Venous-POC (test 39.4 See_Comment L If [...] mated message] code = 1844) The system [employer] D[employer] generated this result transmit levi reference range : 25.0 - 40.0 mm Hg. The reference r alba was not used to interpret this result as normal/abnormal . SO2, Venous-POC (test 87.0 % 40.0-70.0 H code = 1845) HCO3, Venous-POC (test 29.3 meq/L 21.0-29.0 H code = 1846) BE, Venous-POC (test 6.0 meq/L -2.0-3.0 H : code = 1847) Bead Wrapper/Techni kelle ID = [id number] for MARFIL, JOSE ARMANDO Lab Interpretation Abnormal (test code = 01767-7) [facility]-Blood gases, [id number] 22:42:59 Test Item Value Reference Range Interpretation Comments Temp. Celsius-POC (test 101.3 code = 1834) FIO2-POC (test code = 28 1835) pH, Venous-POC (test 7.484 7.320-7.420 H : TESTE D AT [facility] code = 1842) [address] [facility], [id number] PCO2, Venous-POC (test 39.4 See_Comment L If [...] mated message] code = 1844) The system [employer] D[employer] generated this result transmit levi reference range : 25.0 - 40.0 mm Hg. The reference r alba was not used to interpret this result as normal/abnormal . SO2, Venous-POC (test 87.0 % 40.0-70.0 H code = 1845) HCO3, Venous-POC (test 29.3 meq/L 21.0-29.0 H code = 1846) BE, Venous-POC (test 6.0 meq/L -2.0-3.0 H : code = 1847) Bead Wrapper/Techni kelle ID = [id number] for MARFIL, JOSE ARMANDO Lab Interpretation Abnormal (test code = 25824-1) [facility]-Blood gases, [id number] 22:42:59 Test Item Value Reference Range Interpretation Comments Temp. Celsius-POC (test 101.3 code = 1834) FIO2-POC (test code = 28 1835) pH, Venous-POC (test 7.484 7.320-7.420 H : TESTE D AT [facility] code = 1842) [address] [facility] [place], [address] PCO2, Venous-POC (test 39.4 See_Comment L If [...] mated message] code = 1844) The system Blaze DFM generated this result transmit levi reference range : 25.0 - 40.0 mm Hg. The reference r alba was not used to interpret this result as normal/abnormal . SO2, Venous-POC (test 87.0 % 40.0-70.0 H code = 1845) HCO3, Venous-POC (test 29.3 meq/L 21.0-29.0 H code = 1846) BE, Venous-POC (test 6.0 meq/L -2.0-3.0 H : code = 1847) Bead Wrapper/Techni kelle ID = [id number] for JOSE ARMANDO CELIS Lab Interpretation Abnormal (test code = 45552-0) [facility] [id number] 22:42:59 Test Item Value Reference Range Interpretation Comments TEMP, CELSIUS-POC 101.3 (BEAKER) (test code = 1834) FIO2-POC (BEAKER) 28 (test code = 1835) PH, VENOUS-POC 7.484 7.320-7.420 H : TESTED AT [facility] [address] (BEAKER) (test code [address] [place], = 1842) [address] PCO2, VENOUS-POC 39.4 mm Hg 41.0-51.0 L [...] BASE EXCESS, 6.0 meq/L -2.0-3.0 H : Bead Wrapper/Tech nician ID VENOUS-POC (BEAKER) = [id number] for MARFIL, (test code = 1847) JOSE ARMANDO LACTIC ACID, [id number] 22:23:56 Test Item Value Reference Range Interpretation Comments LACTATE BLOOD VENOUS 0.92 mmol/L 0.50-2.20 Specime n moderately (2) ([facility]) (test hemolyzed code = 2872) Bead Wrapper ID - BSPOCT-GLUCOSE [id number] 21:35:23 Test Item Value Reference Range Interpretation Comments POC-GLUCOSE METER 125 mg/dL 70-110 H : TESTED A T [facility] [address] ([facility]) (test code = [facility], 153) [address]: Bead Wrapper/Techni kelle ID = [id number] for UG ORJI, GHADA POCT-GLUCOSE [id number] 17:05:43 Test Item Value Reference Range Interpretation Comments POC-GLUCOSE METER 224 mg/dL 70-110 H : TESTED A T [facility] [address] ([facility]) (test code = [facility], 153) [address]: Bead Wrapper/Techni kelle ID = [id number] for Re yes, Maranda POCT-GLUCOSE [id number] 16:33:44 Test Item Value Reference Range Interpretation Comments POC-GLUCOSE METER 108 mg/dL 70-110 : TESTED A T [facility] 67[address] ([facility]) (test code = [facility], 1538) [address]: Bead Wrapper/Techni kelle ID = [id number] for Ag lizzy Herminia POCT-GLUCOSE [id number] 07:38:21 Test Item Value Reference Range Interpretation Comments POC-GLUCOSE METER 185 mg/dL 70-110 H : TESTED A T [facility] 67[address] ([facility]) (test code = [facility], 1538) [address]: Bead Wrapper/Techni kelle ID = [id number] for Re yes, Maranda BASIC METABOLIC [id number] 07:20:13 Test Item Value Reference Range Interpretation [...] S NOT APPLICABLE FOR DIALYSIS PATIEN TS. Bead Wrapper ID - HIEN [id number] 06:54:10 Test Item Value Reference Range Interpretation Comments PHOSPHORUS (BEAKER) (test code = 4.6 mg/dL 2.3-4.7 604) Bead Wrapper ID - HIEN [id number] 06:54:09 Test Item Value Reference Range Interpretation Comments MAGNESIUM (BEAKER) (test code = 2.2 mg/dL 1.6-2.6 627) Bead Wrapper ID - HIEN [facility] W/PLT COUNT & AUTO [id number] 04:53:46 Test Item Value Reference Range Interpretation [...] PERCENT (BEAKER) (test code = 2801) POCT-GLUCOSE [id number] 21:34:14 Test Item Value Reference Range Interpretation Comments POC-GLUCOSE METER 260 mg/dL 70-110 H : TESTED [facility] [address] (BEAKER) (test code = [place], 1538) [address]: Bead Wrapper/Techni kelle ID = [id number] for GHADA BECK POCT-GLUCOSE [id number] 16:27:30 Test Item Value Reference Range Interpretation Comments POC-GLUCOSE METER 170 mg/dL 70-110 H : TESTED A T [facility] [address] (AKASH) (test code = [place], 1538) [address]: Bead Wrapper/Techni kelle ID = [id number] for Soledad Rivera 2D Echo W/Doppler(CW/PW/Color)2021-06-09 16:08:58Ejection [facility](CW/PW/Color)2021-06-09 16:08:58Ejection FractionSLEH ECHO HEARTLAB [facility]2D Echo W/Doppler(CW/PW/Color) 2021-06-09 16:08:58Ejection FractionSLEH ECHO HEARTLAB [facility]2D Echo W/Doppler(CW/PW/Color)2021-06-09 16:08:58Ejection FractionSLEH ECHO HEARTLAB [facility]2D Echo W/Doppler(CW/PW/Color)2021-06-09 16:08:58Ejection FractionSLEH ECHO HEARTLAB [facility]2D Echo W/Doppler(CW/PW/Color) 2021-06-09 16:08:58Ejection FractionSLEH ECHO HEARTLAB [facility]2D Echo W/Doppler(CW/PW/Color)2021-06-09 16:08:58Ejection [facility] W/Doppler(CW/PW/Color)2021-06-09 16:08:58Ejection FractionSLEH ECHO HEARTLAB [facility]2D Echo W/Doppler(CW/PW/Color) 2021-06-09 16:08:58Ejection FractionSLEH ECHO HEARTLAB [facility]2D Echo W/Doppler(CW/PW/Color)2021-06-09 16:08:58Ejection FractionSLEH ECHO HEARTLAB [facility]2D Echo W/Doppler(CW/PW/Color)2021-06-09 16:08:58Ejection FractionSLEH ECHO HEARTLAB SHANDRA [facility]2D Echo W/Doppler(CW/PW/Color) 2021-06-09 16:08:58Ejection FractionSLEH ECHO HEARTLAB SHANDRA [facility]2D Echo W/Doppler(CW/PW/Color)2021-06-09 16:08:58Ejection FractionSLEH ECHO HEARTLAB SHANDRA [facility]2D Echo W/Doppler(CW/PW/Color)2021-06-09 16:08:58Ejection FractionSLEH ECHO HEARTLAB [facility] [id number] 16:06:54Ejection FractionSLEH ECHO HEARTLAB [facility] [id number] 16:06:54Ejection FractionSLEH ECHO HEARTLAB [facility] [id number] 16:06:54Ejection FractionSLEH ECHO HEARTLAB [facility] [id number] 16:06:54Ejection FractionSLEH ECHO HEARTLAB [facility] [id number] 16:06:54Ejection FractionSLEH ECHO HEARTLAB [facility] [id number] 16:06:54Ejection FractionSLEH ECHO HEARTLAB MKALIDA [facility] [id number] 16:06:54Ejection FractionSLEH ECHO HEARTLAB [facility] [id number] 16:06:54Ejection FractionSLEH ECHO HEARTLAB [facility]A [facility] [id number] 16:06:54Ejection FractionSLEH ECHO HEARTLAB [facility] [id number] 16:06:54Ejection FractionSLEH ECHO HEARTLAB MKCKESSON [facility] [id number] 16:06:54Ejection FractionSLEH ECHO HEARTLAB MKCKESSON [facility] [id number] 16:06:54Ejection FractionSLEH ECHO HEARTLAB MKCKESSON [facility] [id number] 16:06:54Ejection FractionSLEH ECHO HEARTLAB MKCKESSON [facility] [id number] 16:06:54Ejection FractionSLEH ECHO [facility] MKWE[facility] SERVICESON [facility] HospitalPOCT-GLUCOSE [id number] 06:23:12 Test Item Value Reference Range Interpretation Comments POC-GLUCOSE METER 250 mg/dL 70-110 H : TESTED A T [facility] [address] (BEAKER) (test code = [place] [facility], 1538) [address]: Bead Wrapper/Techni kelle ID = [id number] for Tavia Bruce BASIC METABOLIC [id number] 04:37:07 Test Item Value Reference Range Interpretation [...] S NOT APPLICABLE FOR DIALYSIS PATIEN TS. Bead Wrapper ID - RAKAN [id number] 04:30:49 Test Item Value Reference Range Interpretation Comments PHOSPHORUS (BEAKER) (test code = 3.8 mg/dL 2.3-4.7 604) Bead Wrapper ID - RAKAN [id number] 04:30:48 Test Item Value Reference Range Interpretation Comments MAGNESIUM (BEAKER) (test code = 2.0 mg/dL 1.6-2.6 627) Bead Wrapper ID - RAKAN WCBC W/PLT COUNT & AUTO [id number] 03:53:11 Test Item Value Reference Range Interpretation [...] (BEAKER) (test code = 2801) Hepatitis panel, [id number] 23:49:54 Test Item Value Reference Range Interpretation Comments Hep A IgM (test code = Nonreactive Nonreactive 39010-9) Hep B C IgM (test code = Nonreactive Nonreactive 98851-4) Hepatitis C Ab (test code = Nonreactive Nonreactive 58188-0) Hepatitis B surface antigen Nonreactive Nonreactive (test code = 5195-3) BRANDI (test code = BRANDI) Bead Wrapper ID - DB Lab Interpretation (test Normal code = 81386-1) [facility] [id number] 23:49:54 Test Item Value Reference Range Interpretation Comments Hep A IgM (test code = Nonreactive Nonreactive 10097-5) Hep B C IgM (test code = Nonreactive Nonreactive 33141-1) Hepatitis C Ab (test code = Nonreactive Nonreactive 78442-9) Hepatitis B surface antigen Nonreactive Nonreactive (test code = 5195-3) BRANDI (test code = BRANDI) Bead Wrapper ID - DB Lab Interpretation (test Normal code = 37891-5) [facility], [id number] 23:49:54 Test Item Value Reference Range Interpretation Comments Hep A IgM (test code = Nonreactive Nonreactive 41234-1) Hep B C IgM (test code = Nonreactive Nonreactive 06890-7) Hepatitis C Ab (test code = Nonreactive Nonreactive 30257-8) Hepatitis B surface antigen Nonreactive Nonreactive (test code = 5195-3) BRANDI (test code = BRANDI) Bead Wrapper ID - DB Lab Interpretation (test Normal code = 41532-7) [facility], [id number] 23:49:54 Test Item Value Reference Range Interpretation Comments Hep A IgM (test code = Nonreactive Nonreactive 51643-9) Hep B C IgM (test code = Nonreactive Nonreactive 28383-7) Hepatitis C Ab (test code = Nonreactive Nonreactive 09224-9) Hepatitis B surface antigen Nonreactive Nonreactive (test code = 5195-3) BRANDI (test code = BRANDI) Bead Wrapper ID - DB Lab Interpretation (test Normal code = 61112-3) [facility] panel, [id number] 23:49:54 Test Item Value Reference Range Interpretation Comments Hep A IgM (test code = Nonreactive Nonreactive 62818-6) Hep B C IgM (test code = Nonreactive Nonreactive 90362-0) Hepatitis C Ab (test code = Nonreactive Nonreactive 74789-1) Hepatitis B surface antigen Nonreactive Nonreactive (test code = 5195-3) BRANDI (test code = BRANDI) Bead Wrapper ID - DB Lab Interpretation (test Normal code = 29516-0) [facility] panel, [id number] 23:49:54 Test Item Value Reference Range Interpretation Comments Hep A IgM (test code = Nonreactive Nonreactive 06379-5) Hep B C IgM (test code = Nonreactive Nonreactive 02832-5) Hepatitis C Ab (test code = Nonreactive Nonreactive 36343-1) Hepatitis B surface antigen Nonreactive Nonreactive (test code = 5195-3) BRANDI (test code = BRANDI) Bead Wrapper ID - DB Lab Interpretation (test Normal code = 83011-2) [facility] panel, [id number] 23:49:54 Test Item Value Reference Range Interpretation Comments Hep A IgM (test code = Nonreactive Nonreactive 66861-7) Hep B C IgM (test code = Nonreactive Nonreactive 67076-8) Hepatitis C Ab (test code = Nonreactive Nonreactive 27572-6) Hepatitis B surface antigen Nonreactive Nonreactive (test code = 5195-3) BRANDI (test code = BRANDI) Bead Wrapper ID - DB Lab Interpretation (test Normal code = 06461-8) [facility] panel, [id number] 23:49:54 Test Item Value Reference Range Interpretation Comments Hep A IgM (test code = Nonreactive Nonreactive 85374-6) Hep B C IgM (test code = Nonreactive Nonreactive 53258-3) Hepatitis C Ab (test code = Nonreactive Nonreactive 82505-7) Hepatitis B surface antigen Nonreactive Nonreactive (test code = 5195-3) BRANDI (test code = BRANDI) Bead Wrapper ID - DB Lab Interpretation (test Normal code = 16725-2) [facility] panel, [id number] 23:49:54 Test Item Value Reference Range Interpretation Comments Hep A IgM (test code = Nonreactive Nonreactive 29444-1) Hep B C IgM (test code = Nonreactive Nonreactive 89452-8) Hepatitis C Ab (test code = Nonreactive Nonreactive 09918-1) Hepatitis B surface antigen Nonreactive Nonreactive (test code = 5195-3) BRANDI (test code = BRANDI) Bead Wrapper ID - DB Lab Interpretation (test Normal code = 17223-1) [facility] panel, [id number] 23:49:54 Test Item Value Reference Range Interpretation Comments Hep A IgM (test code = Nonreactive Nonreactive 79248-7) Hep B C IgM (test code = Nonreactive Nonreactive 31061-6) Hepatitis C Ab (test code = Nonreactive Nonreactive 34303-0) Hepatitis B surface antigen Nonreactive Nonreactive (test code = 5195-3) BRANDI (test code = BRANDI) Bead Wrapper ID - DB Lab Interpretation (test Normal code = 36760-2) [facility] panel, [id number] 23:49:54 Test Item Value Reference Range Interpretation Comments Hep A IgM (test code = Nonreactive Nonreactive 17464-8) Hep B C IgM (test code = Nonreactive Nonreactive 36059-3) Hepatitis C Ab (test code = Nonreactive Nonreactive 06638-0) Hepatitis B surface antigen Nonreactive Nonreactive (test code = 5195-3) BRANDI (test code = BRANDI) Bead Wrapper ID - DB Lab Interpretation (test Normal code = 32681-9) [facility] panel, [id number] 23:49:54 Test Item Value Reference Range Interpretation Comments Hep A IgM (test code = Nonreactive Nonreactive 68187-0) Hep B C IgM (test code = Nonreactive Nonreactive 72917-2) Hepatitis C Ab (test code = Nonreactive Nonreactive 26318-0) Hepatitis B surface antigen Nonreactive Nonreactive (test code = 5195-3) BRANDI (test code = BRANDI) Bead Wrapper ID - DB Lab Interpretation (test Normal code = 72971-0) [facility] panel, [id number] 23:49:54 Test Item Value Reference Range Interpretation Comments Hep A IgM (test code = Nonreactive Nonreactive 19823-3) Hep B C IgM (test code = Nonreactive Nonreactive 55200-8) Hepatitis C Ab (test code = Nonreactive Nonreactive 69176-8) Hepatitis B surface antigen Nonreactive Nonreactive (test code = 5195-3) BRANDI (test code = BRANDI) Bead Wrapper ID - DB Lab Interpretation (test Normal code = 28158-3) [facility] panel, [id number] 23:49:54 Test Item Value Reference Range Interpretation Comments Hep A IgM (test code = Nonreactive Nonreactive 51249-9) Hep B C IgM (test code = Nonreactive Nonreactive 27439-1) Hepatitis C Ab (test code = Nonreactive Nonreactive 34103-0) Hepatitis B surface antigen Nonreactive Nonreactive (test code = 5195-3) BRANDI (test code = BRANDI) Bead Wrapper ID - DB Lab Interpretation (test Normal code = 47871-0) [facility] PANEL, [id number] 23:49:54 Test Item Value Reference Range Interpretation Comments HEPATITIS A IGM ANTIBODY (BEAKER) Nonreactive Nonreactive (test code = 498) HEPATITIS B CORE IGM ANTIBODY Nonreactive Nonreactive (BEAKER) (test code = 645) HEPATITIS C ANTIBODY (BEAKER) Nonreactive Nonreactive (test code = 367) HEPATITIS B SURFACE ANTIGEN (2) Nonreactive Nonreactive (BEAKER) (test code = 2585) Bead Wrapper ID - DBPOCT-GLUCOSE [id number] 21:22:04 Test Item Value Reference Range Interpretation Comments POC-GLUCOSE METER 193 mg/dL 70-110 H : TESTED A T [facility] [address] (BEAKER) (test code = [place], 1538) [address]: Bead Wrapper/Techni kelle ID = [id number] for Tavia Bruce Hepatitis B surface glzwrwp7547-18-02 13:29:36 Test Item Value Reference Range Interpretation Comments Hepatitis B surface Nonreactive Nonreactive antigen (test code = 5195-3) BRANDI (test code = BRANDI) Specimen is considered negative for HBsAg. Lab Interpretation (test Normal code = 94401-1) [facility] surface udhygnu8904-30-09 13:29:36 Test Item Value Reference Range Interpretation Comments Hepatitis B surface Nonreactive Nonreactive antigen (test code = 5195-3) BRANDI (test code = BRANDI) Specimen is considered negative for HBsAg. Lab Interpretation (test Normal code = 93879-5) [facility]He[facility] B surface koijorw3139-30-17 13:29:36 Test Item Value Reference Range Interpretation Comments Hepatitis B surface Nonreactive Nonreactive antigen (test code = 5195-3) BRANDI (test code = BRANDI) Specimen is considered negative for HBsAg. Lab Interpretation (test Normal code = 60054-8) [facility] B surface wldhwiq5055-06-07 13:29:36 Test Item Value Reference Range Interpretation Comments Hepatitis B surface Nonreactive Nonreactive antigen (test code = 5195-3) BRANDI (test code = BRANDI) Specimen is considered negative for HBsAg. Lab Interpretation (test Normal code = 87205-5) [facility] kuafypf8066-70-57 13:29:36 Test Item Value Reference Range Interpretation Comments Hepatitis B surface Nonreactive Nonreactive antigen (test code = 5195-3) BRANDI (test code = BRANDI) Specimen is considered negative for HBsAg. Lab Interpretation (test Normal code = 06625-4) [facility] mlymwuc9710-26-61 13:29:36 Test Item Value Reference Range Interpretation Comments Hepatitis B surface Nonreactive Nonreactive antigen (test code = 5195-3) BRANDI (test code = BRANDI) Specimen is considered negative for HBsAg. Lab Interpretation (test Normal code = 38637-2) [facility] [id number] 13:29:36 Test Item Value Reference Range Interpretation Comments Hepatitis B surface Nonreactive Nonreactive antigen (test code = 5195-3) BRANDI (test code = BRANDI) Specimen is considered negative for HBsAg. Lab Interpretation (test Normal code = 80805-6) [facility] surface [id number] 13:29:36 Test Item Value Reference Range Interpretation Comments Hepatitis B surface Nonreactive Nonreactive antigen (test code = 5195-3) BRANDI (test code = BRANDI) Specimen is considered negative for HBsAg. Lab Interpretation (test Normal code = 69756-6) [facility] surface [id number] 13:29:36 Test Item Value Reference Range Interpretation Comments Hepatitis B surface Nonreactive Nonreactive antigen (test code = 5195-3) BRANDI (test code = BRANDI) Specimen is considered negative for HBsAg. Lab Interpretation (test Normal code = 70452-9) [facility] surface [id number] 13:29:36 Test Item Value Reference Range Interpretation Comments Hepatitis B surface Nonreactive Nonreactive antigen (test code = 5195-3) BRANDI (test code = BRANDI) Specimen is considered negative for HBsAg. Lab Interpretation (test Normal code = 88263-4) [facility] B surface zhyjdde2040-96-09 13:29:36 Test Item Value Reference Range Interpretation Comments Hepatitis B surface Nonreactive Nonreactive antigen (test code = 5195-3) BRANDI (test code = BRANDI) Specimen is considered negative for HBsAg. Lab Interpretation (test Normal code = 28053-8) [facility] B surface [id number] 13:29:36 Test Item Value Reference Range Interpretation Comments Hepatitis B surface Nonreactive Nonreactive antigen (test code = 5195-3) BRANDI (test code = BRANDI) Specimen is considered negative for HBsAg. Lab Interpretation (test Normal code = 96104-6) [facility] surface toxmpcr0091-06-79 13:29:36 Test Item Value Reference Range Interpretation Comments Hepatitis B surface Nonreactive Nonreactive antigen (test code = 5195-3) BRANDI (test code = BRANDI) Specimen is considered negative for HBsAg. Lab Interpretation (test Normal code = 47823-0) [facility] surface uuechsk4332-19-36 13:29:36 Test Item Value Reference Range Interpretation Comments Hepatitis B surface Nonreactive Nonreactive antigen (test code = 5195-3) BRANDI (test code = BRANDI) Specimen is considered negative for HBsAg. Lab Interpretation (test Normal code = 24364-0) [facility] SURFACE [id number] 13:29:36 Test Item Value Reference Range Interpretation Comments HEPATITIS B SURFACE ANTIGEN (2) Nonreactive Nonreactive (BEAKER) (test code = 2585) Specimen is considered negative for HBsAg.U/S, ABDOMINAL, [id number] 13:10:00Abdomen limited area? Add comment if clarification is needed.- >LiverReason for exam:->hepatic nodularity reported [facility] : 1955 Sex: FFINAL REPORT [...] MDReport Verified Date/Time: 06/08/2021 13:10:45 SARS-COV2/RT-PCR ([facility])2021-06-08 12:35:29 Test Item Value Reference Range Interpretation Comments SARS-COV2/RT-PCR (test Negative Not Detected, Negative, code = 2720725) See external report for linked test SARS-COV-2 PERFORMING LAB [facility] (test code = 0445918) Negative result for this test determines that [...] of the Act.Fact Sheet for Healthcare Prov iders:https://www.[employer]/sites/default/files/product/documents/Fact_Sheet_HC _Bhthtplgu_Ndgl_OQDW-JuK-1.pdfFact Sheet for Healthcare Patients:https://www.[employer]/sites/default/files/product/docume nts/Haab_Lkljw_Ymyowjwt_Iwsn_XURU-PeA-7.pdfPerforming Laboratory:[facility], [place] [address]Mmndglj D, 25-Hydroxy 2021-06-08 11:10:06 Test Item Value Reference Range Interpretation Comments Vitamin D 25-Hydroxy 16.7 ng/mL 6.6-49.9 (test code = 2764) BRANDI (test code = BRANDI) Effective 01/12/2017: Reference Range ChangeNew: 6.6-49.9 ng/mL Previous: 13.0-47.8 ng/mL Recommended Vitamin D Target Range: 30.0-40.0 ng/mLOperator ID - DB Lab Interpretation (test Normal code = 96701-5) [facility], 64-Bcncpcx2279-39-07 11:10:06 Test Item Value Reference Range Interpretation Comments Vitamin D 25-Hydroxy 16.7 ng/mL 6.6-49.9 (test code = 2764) BRANDI (test code = BRANDI) Effective 01/12/2017: Reference Range ChangeNew: 6.6-49.9 ng/mL Previous: 13.0-47.8 ng/mL Recommended Vitamin D Target Range: 30.0-40.0 ng/mLOperator ID - DB Lab Interpretation (test Normal code = 86212-4) [facility], 96-Gcjbkft4721-96-07 11:10:06 Test Item Value Reference Range Interpretation Comments Vitamin D 25-Hydroxy 16.7 ng/mL 6.6-49.9 (test code = 2764) BRANDI (test code = BRANDI) Effective 01/12/2017: Reference Range ChangeNew: 6.6-49.9 ng/mL Previous: 13.0-47.8 ng/mL Recommended Vitamin D Target Range: 30.0-40.0 ng/mLOperator ID - DB Lab Interpretation (test Normal code = 42685-4) [facility], 63-Hjnwdrv2976-62-07 11:10:06 Test Item Value Reference Range Interpretation Comments Vitamin D 25-Hydroxy 16.7 ng/mL 6.6-49.9 (test code = 2764) BRANDI (test code = BRANDI) Effective 01/12/2017: Reference Range ChangeNew: 6.6-49.9 ng/mL Previous: 13.0-47.8 ng/mL Recommended Vitamin D Target Range: 30.0-40.0 ng/mLOperator ID - DB Lab Interpretation (test Normal code = 65151-9) [facility], 52-Rfcrwgn1909-07-07 11:10:06 Test Item Value Reference Range Interpretation Comments Vitamin D 25-Hydroxy 16.7 ng/mL 6.6-49.9 (test code = 2764) BRANDI (test code = BRANDI) Effective 01/12/2017: Reference Range ChangeNew: 6.6-49.9 ng/mL Previous: 13.0-47.8 ng/mL Recommended Vitamin D Target Range: 30.0-40.0 ng/mLOperator ID - DB Lab Interpretation (test Normal code = 68276-3) [facility], 12-Peomrmq1361-66-07 11:10:06 Test Item Value Reference Range Interpretation Comments Vitamin D 25-Hydroxy 16.7 ng/mL 6.6-49.9 (test code = 2764) BRANDI (test code = BRANDI) Effective 01/12/2017: Reference Range ChangeNew: 6.6-49.9 ng/mL Previous: 13.0-47.8 ng/mL Recommended Vitamin D Target Range: 30.0-40.0 ng/mLOperator ID - DB Lab Interpretation (test Normal code = 77888-6) [facility], 39-Nppgxie5579-80-07 11:10:06 Test Item Value Reference Range Interpretation Comments Vitamin D 25-Hydroxy 16.7 ng/mL 6.6-49.9 (test code = 2764) BRANDI (test code = BRANDI) Effective 01/12/2017: Reference Range ChangeNew: 6.6-49.9 ng/mL Previous: 13.0-47.8 ng/mL Recommended Vitamin D Target Range: 30.0-40.0 ng/mLOperator ID - DB Lab Interpretation (test Normal code = 38009-6) [facility] 82-[id number] 11:10:06 Test Item Value Reference Range Interpretation Comments Vitamin D 25-Hydroxy 16.7 ng/mL 6.6-49.9 (test code = 2764) BRANDI (test code = BRANDI) Effective 01/12/2017: Reference Range ChangeNew: 6.6-49.9 ng/mL Previous: 13.0-47.8 ng/mL Recommended Vitamin D Target Range: 30.0-40.0 ng/mLOperator ID - DB Lab Interpretation (test Normal code = 33227-9) [facility], 36-Dqalvue9367-85-07 11:10:06 Test Item Value Reference Range Interpretation Comments Vitamin D 25-Hydroxy 16.7 ng/mL 6.6-49.9 (test code = 2764) BRANDI (test code = BRANDI) Effective 01/12/2017: Reference Range ChangeNew: 6.6-49.9 ng/mL Previous: 13.0-47.8 ng/mL Recommended Vitamin D Target Range: 30.0-40.0 ng/mLOperator ID - DB Lab Interpretation (test Normal code = 83800-7) [facility], 67-Decckjj0495-61-07 11:10:06 Test Item Value Reference Range Interpretation Comments Vitamin D 25-Hydroxy 16.7 ng/mL 6.6-49.9 (test code = 2764) BRANDI (test code = BRANDI) Effective 01/12/2017: Reference Range ChangeNew: 6.6-49.9 ng/mL Previous: 13.0-47.8 ng/mL Recommended Vitamin D Target Range: 30.0-40.0 ng/mLOperator ID - DB Lab Interpretation (test Normal code = 87009-2) [facility], [id number] 11:10:06 Test Item Value Reference Range Interpretation Comments Vitamin D 25-Hydroxy 16.7 ng/mL 6.6-49.9 (test code = 2764) BRANDI (test code = BRANDI) Effective 01/12/2017: Reference Range ChangeNew: 6.6-49.9 ng/mL Previous: 13.0-47.8 ng/mL Recommended Vitamin D Target Range: 30.0-40.0 ng/mLOperator ID - DB Lab Interpretation (test Normal code = 74524-7) [facility], 18-Iujuyjr4293-25-07 11:10:06 Test Item Value Reference Range Interpretation Comments Vitamin D 25-Hydroxy 16.7 ng/mL 6.6-49.9 (test code = 2764) BRANDI (test code = BRANDI) Effective 01/12/2017: Reference Range ChangeNew: 6.6-49.9 ng/mL Previous: 13.0-47.8 ng/mL Recommended Vitamin D Target Range: 30.0-40.0 ng/mLOperator ID - DB Lab Interpretation (test Normal code = 95932-9) [facility], 20-[id number] 11:10:06 Test Item Value Reference Range Interpretation Comments Vitamin D 25-Hydroxy 16.7 ng/mL 6.6-49.9 (test code = 2764) BRANDI (test code = BRANDI) Effective 01/12/2017: Reference Range ChangeNew: 6.6-49.9 ng/mL Previous: 13.0-47.8 ng/mL Recommended Vitamin D Target Range: 30.0-40.0 ng/mLOperator ID - DB Lab Interpretation (test Normal code = 53630-8) [facility], 36-Fyogjcp4390-36-07 11:10:06 Test Item Value Reference Range Interpretation Comments Vitamin D 25-Hydroxy 16.7 ng/mL 6.6-49.9 (test code = 2764) BRANDI (test code = BRANDI) Effective 01/12/2017: Reference Range ChangeNew: 6.6-49.9 ng/mL Previous: 13.0-47.8 ng/mL Recommended Vitamin D Target Range: 30.0-40.0 ng/mLOperator ID - DB Lab Interpretation (test Normal code = 16305-0) [facility], [id number] 11:10:06 Test Item Value Reference Range Interpretation Comments VITAMIN D 25-OH (NABILAKER) (test 16.7 ng/mL 6.6-49.9 code = 2764) Effective 01/12/2017: Reference Range ChangeNew: 6.6-49.9 ng/mL Previous: 13.0- 47.8 ng/mLRecommendedVitamin D Target Range: 30.0-40.0 ng/mLOperator ID - DBPTH, [id number] 11:05:08 Test Item Value Reference Range Interpretation Comments PTH (test code = 2731-8) 449.7 pg/mL 8.5-72.5 H BRANDI (test code = BRANDI) Bead Wrapper ID - ADMIN Lab Interpretation (test Abnormal code = 33814-4) [facility], [id number] 11:05:08 Test Item Value Reference Range Interpretation Comments PTH (test code = 2731-8) 449.7 pg/mL 8.5-72.5 H BRANDI (test code = BRANDI) Bead Wrapper ID - ADMIN Lab Interpretation (test Abnormal code = 57931-8) [facility], [id number] 11:05:08 Test Item Value Reference Range Interpretation Comments PTH (test code = 2731-8) 449.7 pg/mL 8.5-72.5 H BRANDI (test code = BRANDI) Bead Wrapper ID - ADMIN Lab Interpretation (test Abnormal code = 59294-1) [facility], [id number] 11:05:08 Test Item Value Reference Range Interpretation Comments PTH (test code = 2731-8) 449.7 pg/mL 8.5-72.5 H BRANDI (test code = BRANDI) Bead Wrapper ID - ADMIN Lab Interpretation (test Abnormal code = 96965-4) [facility], [id number] 11:05:08 Test Item Value Reference Range Interpretation Comments PTH (test code = 2731-8) 449.7 pg/mL 8.5-72.5 H BRANDI (test code = BRANDI) Bead Wrapper ID - ADMIN Lab Interpretation (test Abnormal code = 28774-6) [facility], [id number] 11:05:08 Test Item Value Reference Range Interpretation Comments PTH (test code = 2731-8) 449.7 pg/mL 8.5-72.5 H BRANDI (test code = BRANDI) Bead Wrapper ID - ADMIN Lab Interpretation (test Abnormal code = 16118-5) [facility], [id number] 11:05:08 Test Item Value Reference Range Interpretation Comments PTH (test code = 2731-8) 449.7 pg/mL 8.5-72.5 H BRANDI (test code = BRANDI) Bead Wrapper ID - ADMIN Lab Interpretation (test Abnormal code = 04556-6) [facility], [id number] 11:05:08 Test Item Value Reference Range Interpretation Comments PTH (test code = 2731-8) 449.7 pg/mL 8.5-72.5 H BRANDI (test code = BRANDI) Bead Wrapper ID - ADMIN Lab Interpretation (test Abnormal code = 02943-5) [facility], [id number] 11:05:08 Test Item Value Reference Range Interpretation Comments PTH (test code = 2731-8) 449.7 pg/mL 8.5-72.5 H BRANDI (test code = BRANDI) Bead Wrapper ID - ADMIN Lab Interpretation (test Abnormal code = 43189-8) [facility], [id number] 11:05:08 Test Item Value Reference Range Interpretation Comments PTH (test code = 2731-8) 449.7 pg/mL 8.5-72.5 H BRANDI (test code = BRANDI) Bead Wrapper ID - ADMIN Lab Interpretation (test Abnormal code = 54546-1) [facility], [id number] 11:05:08 Test Item Value Reference Range Interpretation Comments PTH (test code = 2731-8) 449.7 pg/mL 8.5-72.5 H BRANDI (test code = BRANDI) Bead Wrapper ID - ADMIN Lab Interpretation (test Abnormal code = 52962-2) [facility], [id number] 11:05:08 Test Item Value Reference Range Interpretation Comments PTH (test code = 2731-8) 449.7 pg/mL 8.5-72.5 H BRANDI (test code = BRANDI) Bead Wrapper ID - ADMIN Lab Interpretation (test Abnormal code = 04615-5) [facility], [id number] 11:05:08 Test Item Value Reference Range Interpretation Comments PTH (test code = 2731-8) 449.7 pg/mL 8.5-72.5 H BRANDI (test code = BRANDI) Bead Wrapper ID - ADMIN Lab Interpretation (test Abnormal code = 43651-2) [facility], [id number] 11:05:08 Test Item Value Reference Range Interpretation Comments PTH (test code = 2731-8) 449.7 pg/mL 8.5-72.5 H BRANDI (test code = BRANDI) Bead Wrapper ID - ADMIN Lab Interpretation (test Abnormal code = 80878-0) [facility], [id number] 11:05:08 Test Item Value Reference Range Interpretation Comments PARATHYROID HORMONE INTACT 449.7 pg/mL 8.5-72.5 H (BEAKER) (test code = 577) Bead Wrapper ID - [id number] 09:50:35 Test Item Value Reference Range Interpretation Comments FERRITIN (BEAKER) (test code = 926.02 ng/mL 5.00-275.00 H 361) Bead Wrapper ID - ADMINIRON, TIBC, % SAT. (WITHOUT FERRITIN)2021-06-08 09:30:51 Test Item Value Reference Range Interpretation Comments IRON (BEAKER) (test code = 547) 110.0 ug/dL 40.0-160.0 TOTAL IRON BINDING CAPACITY 135 ug/dL 250-450 L (BEAKER) (test code = 769) IRON % SATURATION (2) (BEAKER) 81 % 20-55 H (test code = 2590) Bead Wrapper ID - ADMINPOCT-GLUCOSE [id number] 07:11:26 Test Item Value Reference Range Interpretation Comments POC-GLUCOSE METER 199 mg/dL 70-110 H : TESTED A T [facility] 6720 (BEAKER) (test code = YUDY [place], 1538) [address]889: Bead Wrapper/Techni kelle ID = [id number] for Tavia Bruce Vitamin [id number] 06:28:47 Test Item Value Reference Range Interpretation Comments Vitamin B12 (test code = 1626 pg/mL 213-816 H 2132-9) BRANDI (test code = BRANDI) Bead Wrapper ID - ADMIN Lab Interpretation (test Abnormal code = 63302-6) [facility] [id number] 06:28:47 Test Item Value Reference Range Interpretation Comments Vitamin B12 (test code = 1626 pg/mL 213-816 H 2132-9) BRANDI (test code = BRANDI) Bead Wrapper ID - ADMIN Lab Interpretation (test Abnormal code = 49638-5) [facility] [id number] 06:28:47 Test Item Value Reference Range Interpretation Comments Vitamin B12 (test code = 1626 pg/mL 213-816 H 2132-9) BRANDI (test code = BRANDI) Bead Wrapper ID - ADMIN Lab Interpretation (test Abnormal code = 87929-8) [facility] [id number] 06:28:47 Test Item Value Reference Range Interpretation Comments Vitamin B12 (test code = 1626 pg/mL 213-816 H 2132-9) BRANDI (test code = BRANDI) Bead Wrapper ID - ADMIN Lab Interpretation (test Abnormal code = 39136-6) [facility] [id number] 06:28:47 Test Item Value Reference Range Interpretation Comments Vitamin B12 (test code = 1626 pg/mL 213-816 H 2132-9) BRANDI (test code = BRANDI) Bead Wrapper ID - ADMIN Lab Interpretation (test Abnormal code = 70956-7) [facility] [id number] 06:28:47 Test Item Value Reference Range Interpretation Comments Vitamin B12 (test code = 1626 pg/mL 213-816 H 2132-9) BRANDI (test code = BRANDI) Bead Wrapper ID - ADMIN Lab Interpretation (test Abnormal code = 78345-3) [facility] [id number] 06:28:47 Test Item Value Reference Range Interpretation Comments Vitamin B12 (test code = 1626 pg/mL 213-816 H 2132-9) BRANDI (test code = BRANDI) Bead Wrapper ID - ADMIN Lab Interpretation (test Abnormal code = 00228-2) [facility] [id number] 06:28:47 Test Item Value Reference Range Interpretation Comments Vitamin B12 (test code = 1626 pg/mL 213-816 H 2132-9) BRANDI (test code = BRANDI) Bead Wrapper ID - ADMIN Lab Interpretation (test Abnormal code = 77627-9) [facility] [id number] 06:28:47 Test Item Value Reference Range Interpretation Comments Vitamin B12 (test code = 1626 pg/mL 213-816 H 2132-9) BRANDI (test code = BRANDI) Bead Wrapper ID - ADMIN Lab Interpretation (test Abnormal code = 75832-2) [facility] [id number] 06:28:47 Test Item Value Reference Range Interpretation Comments Vitamin B12 (test code = 1626 pg/mL 213-816 H 2132-9) BRANDI (test code = BRANDI) Bead Wrapper ID - ADMIN Lab Interpretation (test Abnormal code = 41797-1) [facility] [id number] 06:28:47 Test Item Value Reference Range Interpretation Comments Vitamin B12 (test code = 1626 pg/mL 213-816 H 2132-9) BRANDI (test code = BRANDI) Bead Wrapper ID - ADMIN Lab Interpretation (test Abnormal code = 76976-2) [facility] [id number] 06:28:47 Test Item Value Reference Range Interpretation Comments Vitamin B12 (test code = 1626 pg/mL 213-816 H 2132-9) BRANDI (test code = BRANDI) Bead Wrapper ID - ADMIN Lab Interpretation (test Abnormal code = 97886-9) [facility] [id number] 06:28:47 Test Item Value Reference Range Interpretation Comments Vitamin B12 (test code = 1626 pg/mL 213-816 H 2132-9) BRANDI (test code = BRANDI) Bead Wrapper ID - ADMIN Lab Interpretation (test Abnormal code = 34244-6) [facility] [id number] 06:28:47 Test Item Value Reference Range Interpretation Comments Vitamin B12 (test code = 1626 pg/mL 213-816 H 2132-9) BRANDI (test code = BRANDI) Bead Wrapper ID - ADMIN Lab Interpretation (test Abnormal code = 52569-7) [facility] [id number] 06:28:47 Test Item Value Reference Range Interpretation Comments VITAMIN B12 (BEAKER) (test code = 1626 pg/mL 213-816 H 774) Bead Wrapper ID - ADMINBASIC METABOLIC [id number] 06:22:27 Test Item Value Reference Range Interpretation [...] S NOT APPLICABLE FOR DIALYSIS PATIEN TS. Bead Wrapper ID - [id number] 06:08:16 Test Item Value Reference Range Interpretation Comments MAGNESIUM (BEAKER) (test code = 2.3 mg/dL 1.6-2.6 627) Bead Wrapper ID - [id number] 06:08:16 Test Item Value Reference Range Interpretation Comments PHOSPHORUS (BEAKER) (test code = 5.6 mg/dL 2.3-4.7 H 604) Bead Wrapper ID - DBPROTHROMBIN TIME/[id number] 05:55:08 Test Item Value Reference Range Interpretation Comments PROTIME (BEAKER) 14.2 seconds 11.9-14.2 (test code = 759) INR (BEAKER) (test 1.12 See_Comment [Automat ed message] code = 370) The system [employer] generated this result transmitted ref erence range: <=5.90. The reference range was not used to int erpret this result as normal/abnormal . RECOMMENDED COUMADIN/WARFARIN INR THERAPY RANGESSTANDARD DOSE: 2.0 - 3.0 Includes: PROPHYLAXIS for venous thrombosis, systemic embolization; TREATMENT for venous thrombosis and/or pulmonary embolus.HIGH RISK: Target INR is 2.5-3.5 for patients with mechanical heart valves.CBC W/PLT COUNT & AUTO [id number] 05:42:08 Test Item Value Reference Range Interpretation [...] = 2801) RAD, CHEST, 1 VIEW, NON [id number] 02:35:00Reason for exam:->shortness of breathShould this be performed at the bedside?->Yes [facility] : 1955 Sex: FFINAL REPORT [...] [place] MDReport Verified Date/Time: 06/08/2021 02:35:39 POCT-GLUCOSE [id number] 23:26:33 Test Item Value Reference Range Interpretation Comments POC-GLUCOSE METER 279 mg/dL 70-110 H : TESTED A T [facility] 6720 (BEAKER) (test code = UYDY [place], 1538) [address]7960: Bead Wrapper/Techni kelle ID = [id number] for Tavia rBuce COMPREHENSIVE METABOLIC [id number] 22:28:11 Test Item Value Reference Range Interpretation [...] S NOT APPLICABLE FOR DIALYSIS PATIEN TS. Bead Wrapper ID - DBVancomycin level, [id number] 22:19:31 Test Item Value Reference Range Interpretation Comments Vancomycin Rm (test 16.1 ug/mL code = 42307-8) BRANDI (test code = Reference Range: No BRANDI) NormalsOperator ID - DB [facility], [id number] 22:19:31 Test Item Value Reference Range Interpretation Comments Vancomycin Rm (test 16.1 ug/mL code = 04612-9) BRANDI (test code = Reference Range: No BRANDI) NormalsOperator ID - DB [facility], [id number] 22:19:31 Test Item Value Reference Range Interpretation Comments Vancomycin Rm (test 16.1 ug/mL code = 09360-2) BRANDI (test code = Reference Range: No BRANDI) NormalsOperator ID - DB [facility], [id number] 22:19:31 Test Item Value Reference Range Interpretation Comments Vancomycin Rm (test 16.1 ug/mL code = 61390-0) BRANDI (test code = Reference Range: No BRANDI) NormalsOperator ID - DB [facility], [id number] 22:19:31 Test Item Value Reference Range Interpretation Comments Vancomycin Rm (test 16.1 ug/mL code = 24431-9) BRANDI (test code = Reference Range: No BRANDI) NormalsOperator ID - DB [facility], [id number] 22:19:31 Test Item Value Reference Range Interpretation Comments Vancomycin Rm (test 16.1 ug/mL code = 18916-9) BRANDI (test code = Reference Range: No BRANDI) NormalsOperator ID - DB [facility], [id number] 22:19:31 Test Item Value Reference Range Interpretation Comments Vancomycin Rm (test 16.1 ug/mL code = 04081-5) BRANDI (test code = Reference Range: No BRANDI) NormalsOperator ID - DB [facility], [id number] 22:19:31 Test Item Value Reference Range Interpretation Comments Vancomycin Rm (test 16.1 ug/mL code = 84645-5) BRANDI (test code = Reference Range: No BRANDI) NormalsOperator ID - DB [facility], [id number] 22:19:31 Test Item Value Reference Range Interpretation Comments Vancomycin Rm (test 16.1 ug/mL code = 50577-9) BRANDI (test code = Reference Range: No BRANDI) NormalsOperator ID - DB [facility], [id number] 22:19:31 Test Item Value Reference Range Interpretation Comments Vancomycin Rm (test 16.1 ug/mL code = 68033-2) BRANDI (test code = Reference Range: No BRANDI) NormalsOperator ID - DB [facility], [id number] 22:19:31 Test Item Value Reference Range Interpretation Comments Vancomycin Rm (test 16.1 ug/mL code = 74610-8) BRANDI (test code = Reference Range: No BRANDI) NormalsOperator ID - DB [facility], [id number] 22:19:31 Test Item Value Reference Range Interpretation Comments Vancomycin Rm (test 16.1 ug/mL code = 03444-0) BRANDI (test code = Reference Range: No BRANDI) NormalsOperator ID - DB [facility], [id number] 22:19:31 Test Item Value Reference Range Interpretation Comments Vancomycin Rm (test 16.1 ug/mL code = 05221-3) BRANDI (test code = Reference Range: No BRANDI) NormalsOperator ID - DB [facility], [id number] 22:19:31 Test Item Value Reference Range Interpretation Comments Vancomycin Rm (test 16.1 ug/mL code = 01866-8) BRANDI (test code = Reference Range: No BRANDI) NormalsOperator ID - DB [facility], [id number] 22:19:31 Test Item Value Reference Range Interpretation Comments VANCOMYCIN RANDOM (BEAKER) (test 16.1 ug/mL code = 523) Reference Range: No NormalsOperator ID - DBCBC W/PLT COUNT & AUTO [id number] 22:05:27 Test Item Value Reference Range Interpretation [...] Interpretation Comments POCT GLU (test code = 1363346029) 129 mg/dL 70-110 H Lab Interpretation (test code = Abnormal 47286-0) [facility] GLUCOSE (AUTOMATED)2021-05-22 17:41:02 Test Item Value Reference Range Interpretation Comments POCT GLU (test code = 2534642329) 120 mg/dL 70-110 H Lab Interpretation (test code = Abnormal 52121-1) [facility]21-[facility]-22 13:46:20 Test Item Value Reference Range Interpretation Comments POCT GLU (test code = 8536039691) 174 mg/dL 70-110 H Lab Interpretation (test code = Abnormal 86465-4) [facility] METABOLIC PANEL (NA, K, CL, CO2, GLUCOSE, BUN, CREATININE, CA)2021-05-22 10:34:14 Test Item Value Reference Range Interpretation Comments NA (test code = 128 mmol/L 135-145 L 1138721956) K (test code = 5.2 mmol/L 3.5-5.0 H 1301003456) CL (test code = 95 mmol/L 98-108 L 1523321348) CO2 TOTAL (test code = 24 mmol/L 23-31 4507505013) AGAP (test code = 2-16 8833982868) BUN (test code = 43 mg/dL 7-23 H 6440957577) GLUCOSE (test code = 182 mg/dL 70-110 H 0584687152) CREATININE (test code = 5.93 mg/dL 0.50-1.04 H 1696588929) CALCIUM (test code = 8.0 mg/dL 8.6-10.6 L 1115390719) eGFR (test code = mL/min/1.73m2 7329120953) BRANDI (test code = BRANDI) Association of [...] tests). Lab Interpretation Abnormal (test code = 76480-1) [facility] WITH [id number] 10:25:51 Test Item Value Reference Range Interpretation [...] (test code = 50.7 fL 39.0-49.9 H 06828-0) RDW-CV (test code = 14.6 % 12.0-15.5 788-0) PLT (test code = See_Comment L [Automated 777-3) message] The sy stem which generated this result transmitted reference range : 166 - 358 10*3/ ?L. The reference r alba was not used to interpret this result as normal/abnormal . MPV (test code = 11.2 fL 9.5-12.9 30753-1) NRBC/100 WBC (test See_Comment [Automat ed code = 1876526268) message] The system which generated this result transmitted reference range : 0.0 - 10.0 /100 WBCs. The refer ence range was not u sed to interpret th is result as normal/abnormal . NRBC x10^3 (test code <0.01 See_Comment [Auto mated = 7041047599) message] The s ystem which generated this result transmitted reference range : 10*3/?L. The reference range was not used to interpret this result as normal/abnormal . GRAN MAT (NEUT) % 75.4 % (test code = 770-8) IMM GRAN % (test code 0.70 % = 4451673139) LYMPH % (test code = 12.5 % 736-9) MONO % (test code = 10.3 % 5905-5) EOS % (test code = 0.8 % 713-8) BASO % (test code = 0.3 % 706-2) GRAN MAT x10^3(ANC) 4.54 10*3/uL 1.88-7.09 (test code = 7898695478) IMM GRAN x10^3 (test 0.04 10*3/uL 0.00-0.06 code = 2661931062) LYMPH x10^3 (test code 0.75 10*3/uL 1.32-3.29 L = 731-0) MONO x10^3 (test code 0.62 10*3/uL 0.33-0.92 = 742-7) EOS x10^3 (test code = 0.05 10*3/uL 0.03-0.39 711-2) BASO x10^3 (test code <0.03 0.01-0.07 = 704-7) Lab Interpretation Abnormal (test code = 39126-1) [facility] [id number] 05:24:06 Test Item Value Reference Range Interpretation Comments NT-proBNP (test code 563516 pg/mL See_Comment H [Autom ated = 6003023325) message] The system which generated this result transmitted reference range : <=125. The reference range was not used to interpret this result as normal/abnormal . BRANDI (test code = BRANDI) Biotin has been reported to cause a negative bias, interpret results relative to patient's use of biotin. Lab Interpretation Abnormal (test code = 86500-6) [facility], [id number] 04:46:54 Test Item Value Reference Range Interpretation Comments GLUCOSE (test code = 6461294924) 107 mg/dL 70-110 Lab Interpretation (test code = Normal 80403-2) [facility] Total [id number] 04:46:34 Test Item Value Reference Range Interpretation Comments T PROTEIN (test code = 6008667495) 6.1 g/dL 6.3-8.2 L Lab Interpretation (test code = Abnormal 25974-6) [facility] HospitalLACTATE [id number] 04:46:18 Test Item Value Reference Range Interpretation Comments LDH (test code = 2602820509) 311 U/L 300-600 Lab Interpretation (test code = Normal 42476-8) [facility]TROP[facility] [id number] 00:24:29 Test Item Value Reference Interpretation Comments Range TROPONIN I (test 0.084 ng/mL See_Comment H [Automated code = 3092188017) message] The system which generated this result [...] biotin. Lab Interpretation Abnormal (test code = 11925-0) [facility] Hospital[facility]to Pleural [id number] 23:21:29 Test Item Value Reference Range Interpretation Comments Case Report (test code = Non-Gynecologic 2079598635) Cytology ?Case: [id number] ?Authorizing Provider: ?Candido Robison DO ?Collected: ? 05/20/2021 1604 ?Ordering Location: ? ? [facility] ?Received: ?05/20/2021 1631 ?Pathologist: ? Mariana, ? MD Duc ?Specimen: ? ?PLEURAL, RIGHT ? Final Diagnosis (test o0fbrVAzSZQpb6upVZPfa code = 6933061592) GFuZzEwMzNcZnRuYmpcdW MxIHtccnRmMVxlcGljOTY nCPsbabFjNYZhfJBnS5Gf fjrwJPvjHT6kXO0iyGzpc ZLwqFIhKCGsBsVot4tij6 31zJBdf9dlFSJFevdizOa 1sNnrR13ax1U0ObioJ83e uBEtGHJ9OVAwTGLmxMWiT IQvZWC3SSTbhCToW8aiCE XnWK6vrkwkSBlkIAxzJGZ gbBE1SPNyeZKrH5CiQCGx OWzyZJMvdzg5EiPoYn6ln GVyeTcyMFxwYXJkXHBsYW luXGJcZnMyMFxwYXIgQS4 gIFBMRVVSQSwgUklHSFQ7 SHEQM5DBT6IBWGNZHTNqA mzTVCY2TKYusxNvSZGwLT 8wKcTUTHLHGtDoFw7FPI8 BTElHTkFOVCBDRUxMUyBc ZkKdIBOXTGYYE97RGL9TX VxwYXJccGFyIFBhdWwgWW 58ngokHB9XUPMkeGYveEW pnZhwgj90AVT0GUAaHpX8 LzIwMjJccHJvdGVjdDAgX HBsYWluXGZzMjAgICAyOj F5CNCRKSTynkbtHSA9e0u ydGYxXHNzdGVjZjIyMDAw DUQvf1mhREOllGDdSoZcK zNcZnRuYmpcdWMxXGRlZm Dxu9fuc606aKQeu2msHFO dRfS5pVSqIUUgyVtmtro1 tMrhKfPhRXSus5icqrOzA mNoYXJzZXQwIEFyaWFsO3 31AGTzCUhmh8ygg3HoYOX bxUBem5V5CEUUSKhhSfRy Q895u5skv7zvsyEmxFO2M ZCxMPP9HIyziwBueoJ7VY rnjFBzIhF1DTcigkNvJXb aqsFffpEoAho6GXQbI061 OOI0bSywh3qlQIX2WUUfS PElDqbjAa8meRKuK973JI HaSTDPRFKdzFr4VCXgfiE cypNmpNQTs139Y291m5rp LKMrhiMizKrLxvrdy8suN 319XHBhcGVydzEyMjQwXH HviOThmCI7NICpYY4ojrb qFCpmXIziXSMysbB2NJAe dBAfK3EcVAFwXQ1hsezcE FC3IOcoVATcETI9FwGpLR Pii6Feyyg8DuXacm0pag3 4UCV6a8RppJdfWDD5AZM6 GkAfFa3huQYbCPQhFI0iV kHrzNLaQAFpqa13eWdaIR pupgEpjH1rInEnXIRrxKL fVOXjJE3fzPYmXDNenK4v cmxjXHBnYnJkcmhlYWRcc GppntTsLh9fzAfwSCX3HT thB0xyuL9vTcX1AZjaR2s unZ3cJAb6KQkwsCA8WKDu xI0nTL8vhvzrz4kwPGlaR FvbVBKhbcV6enH7YOOwhY OcG1AduW3nQMJeLG4hclx dk4dbPLH7SOpqLQRgPWZ8 LrNhDQXzh2Bzjhz2EnCtn 1SamSCfIVpwC85md264OA IlqjVtR8duhYTazgpufJI pboinLOuhxhJ4CAFmZMXk YWluXGYxXGZzMjBcbGFuZ zEwMzNcaGljaFxmMVxkYm TgBOGzQBvkF0wtChDmD4T yXGZzMjBccGFyIEkgaGF2 LOEmQSLob15lfLx7IPVcf wcip0HmROLsiEDtnSSlzC 6vjiEef2hyYLHrRJVjQLB oP1PpBHR5xFGmGWOxuJBx wCO7PL2aqqJeNY8jGYUqA nkgcmVzaWRlbnRzLCBmZW wvi2heUS3kOVDkcRlxpS7 hyIR4ZODxh6uquCLcwLCe v3nqd3VfkfQeGTpbQARiG NnzTPJfMFZuRK0vPDRntH BovsEzi5D9ZpjywXIdsui pOohqgyK7QKqfnyepICPa DYgkD5xwBpZpJPAosTpvB aqqg1ShIQFfCKIsLltbbC FyfX0= Final Diagnosis Comment r1idxJUgBIBlpYA5TwLzT (test code = 5173181753) WGpd8yok9VssSNulASiMU bqrYWlonStcc09rVI1aX0 7NO5tZGDbUbR4CUTbsgG9 Vfp1WPXzMVSltKSwD263j 9xfl9fatqJseQZ2gHzsSW PamfkkYiZ5CRynAVYvpeo qLHy1CHkwSVMmgCC6GWTl sGEoL2RqBAVmKE2frla3O FJ6RZftWEDyBwI5XYUxeD HgJMOyfAsoFOgrd069IMO 2KzPlDRPmfnFtyAermH7y ZnMyMCBTbWVhcnMgYXJlI LJizJQoA4OasDUwJELxNT 9hSNMeu6vwsqNtAUAyHA0 pX67aoKBge3ImKJtxDLjf J5AftDUiDA6sSPHgz72kY JEdDL6xufVlObFOskXpSS rqH75cvzQrU2QuoXZmjSM cnsFlAwqpGP4yQFPvyb1= Clinical Information Clinical Hx: ESRD (test code = 6802439473) Gross Description (test y4jguRHgNMXytBE4QfRyV code = 6476422380) HQmm7fzb1NruKFsdDLzCI oktQEbwvHiku38rYG2eT7 8HW8hWXLtThJ9BXLpihO2 Jxx3ZUJvXOBcySRiH292s 4ovi7digwCaoJZ3mLogHD XbqbfbWfF1XZuhRTBscdh bTRh7YYlvOFVvsWR6CDQw pTNoZ0ZuMLIfXJ9kecp6C QM7VWblKKZhFaE4FMCjaD OrWEDwcXsjZVyzk349EGT 8VlYrKBIxpxV9YHftBJGp C5ZkL4GxMZtlFCE0PMGaT CBcXHQgMSBcXGZsIFxcbm S9h3yzIPZqcMUzFVH8WGg caWQgNTEwMDIgXFxkYiBP HaFjFyIaXHS2IUI3AMQtE Vb7OQrkH3IFLXPlNQJ6NU UmXMh0UoM5EHc4XBQXMi9 iOOK0WEJaEPd7OEX3YWK9 NCBcXHQgMiBcXGZsIFxcZ iBBcmlhbCBcXGZzIDEwIF rrafV5ZWZnZRalNDFoMdA ccGFyXGZzMjJccGFyIEEx LiAgUExFVVJBLCBSSUdIV SwiMUaZEuZPQT2BGFTSHq BGTFVJRFxwYXIgUmVjZWl 5XKXhChGtf6ewrKCrPHUt UxoiFU1wUYswvEbmtzTjr HVpZCBccGFyIFByZXBhcm CcDMNhc3jfDBFiVTqlYVO hcGFuaWNvbGFvdSBjeXRv h3JaqqpwHL7vTXGiEl8uT O7fb1GfcAYmtWKdq3Atsp TuvyLtQZTmsKvcjjzmh7o hsOaoj3DqsYOvXD42QQPl tDWySPZ1EM1grOkdHDL7 Disclaimer (test code = c0msnNBjFWDcb2npISWvo 6064449488) GFuZzEwMzNcZnRuYmpcdW OqMRkwcsArYSpkv4EgH7G yMjAwMFxhbnNpXGRlZmxh wtnmCFMkZRI3mzOvOMMrQ OzxXEBaRDjgGd6vgVRekL gvZhLuHNVvw1odnvUWBHr iRjGaH982SULaVYbqf8gz s7XdHBZkxFGuf3J6CIZAe kioqHb1kSbuU44dr7M8Hg teP7eqAIVoPUXbL1FtBV5 sSYPzDkp7KQK7ISF9WKLj MBSdU4GtXY6gNCSazFBzH Qu2k7tyfEyiOTCzYPQ3p7 seNEkaxrZmAM0ogp8ihIb 1n5swqcWkRDBkFRFunTWF UNEuM3PosUpmMs0ftKu0r GnqZlsvZHF9Ghv0TY5kkg 15kji3rXwwDUHrituuBaE 2LLpvBSGeavziLGe1UIqc XMWtaJA8LNHoaONtV1JnT TUmAD2phic2AYR6COrwCT YkRuP6FQZqlZGwFXIoxMz eLRzwt986PCE1FvSeZP6q F3Tkm6Y2lJ6pbSSbMFMfu BJaLcDbIPCmni3doAZfIW ahz5InXFP2scR5fVAddLQ hRMWsBI32Lkiyl0QjOrxy k4UtX90jlFG8WQtxj9mtW G4bKgN7wxJlYGqeg1gpxR 9oUvQ6XSkyFY2eGH7tLZK mgP9yqthlPPAfSmKwavas PFJudLlqccBeKo0gxYlgL KO3WSzmA1jkmW4aNbJ4UB uiX0egqX8dSVb9XWecdWM 7ABNrzB4lGC4ujzdbl3wh CIulBJodJCGtdkR3xyC6C VWyfRJrT7FvcV0jXUViXY 7xytwwv0hoCJC5NHqrIHG hQJL5RtFqFSZlf8Hffap3 ItNmo3BwhFUoYQzqA19tf 545TWXrrkHpU2nztYEohv rjwHPocnmtFEraxsS6CGI rnpCrc4SxQNKoBGY4RNuq PEpjgFCeKNYcwGpii7okL 3RscGFyXHBsYWluXGYxXG ZzMjBcbGFuZzEwMzNcaGl jaFxmMVxkYmNoXGYxXGxv P7unGlRgB6JqLBAdWyJnm NRdR0fdGWqdpiUnMTUjvq LnsKN0EFzhP2v1MTYtuuW beAz0lhPvCtAiTOOsDAD2 EUvweUGxVCEpn6Xabsrsh GLnWl2naGBsLBOdcZ0uPD ZxSZJnYMqkKB4kkBj9HQD VjAIwuCYrWrLUNEXjCU91 moMwFPTXlgvqa0G1QOhmP TIrc2BgwTPpD1dyn4ZsSY Fov94nWX7oc8V4u2ciKVC 8SM2lb9SsLUTegJXgeYTv FFDpg2Xsnakiy2NpCBNaj jKsr6EjWIVthyNtcXKnQF UzjiFktu2lkdIaZSJxTKF oN0GlwlzghVdkdmTyTIWe jy7berKrLLN8ARLVBBPwL SYzy5ZjwO8gqVUANXO3iQ Zfyp1bgyORgRVbQAHfya9 1VZYnVH6rA9hpZOSuVUHb lpImtBNqg2VjGWIaxCX2z VVzFS8TGkIQl69sLRKgNG FXviOcPLTuwUqeaEG2rxN 7dE5sYZjOUDAvAsy+IFRo CPWADOQhCK1gqlOpx8Cxh cYnxKrlKHVkvJJoe1BpvI Mdh5AbyIozx3FoeXTbmZP rRY7eAMJrqxqoXAHbFREK HlGIUPLkdnN7p9KpBOAjR LVfXJP6gUqodjl1IKBitK 0zCOBtF9xcqggcUTveLMM ij4KlsX8nxTUKgQWbz1Rv wXNarMTMhHHnLM5qmkLnM NkVYLhSISE9rvPbHRJin1 KlGOvbK7jgP13htEtziTs 4qKX8PIA3qR8zIpn+IFxw YXJccGFyIEFwcHJvcHJpY QEurYfaoyZlM7AtbgAslX 5brCDjtiVmAH9jPQ7tA5E 8vSJkLYYygkVjn5fpFDnf dmUgYmVlbiByZXZpZXdlZ XGyl7GfLYpsLLX4GUpbqg BpbmNsdWRpbmcgSCZFLCB VyGStwPVgXJS0FCtmlyTl muCbFM8rjB0qpOohgA5xi ZMbjPA0uexqJZJvPWOizK lrYJOeLB9jvRYtVEUdmeC JqQctqQEfkH4nV0BoGDQa FJLhlj0oCGMijE6nADyds 2VydmljZXMgYXJlIHBlcm Jxff0fUMTbzKNLEK4QZGl xcKWec7SehxXpE3rMMLI4 NUQwNjYwMjgxKSBleGNlc QJvEBTbja16LWNztY0iqE tiORUsxK7bjP7oaRmxkP2 tGnTgJoQdETznOA3zNPNb G2lvuJLtNYGxUXCuL7joN qSrhJ2soSpcJObvXbRrZg IsBYffRPY1dZ== Embedded Images (test code = 5978405512) [facility]:17:01 Test Item Value Reference Range Interpretation Comments POCT GLU (test code = 1716563972) 109 mg/dL 70-110 Lab Interpretation (test code = Normal 93153-2) [facility] [id number] 21:50:44 UNREMARKABLE LEUKOCYTES WITH ABSOLUTE LYMPHOPENIA. MODERATE NORMOCYTIC NORMOCHROMIC ANEMIA. MILD THROMBOCYTOPENIA.[facility] VITAMIN B12, [id number] 18:38:08 Test Item Value Reference Range Interpretation Comments VIT B12 (test code = >1000 240-930 H 6730943950) BRANDI (test code = BRANDI) Biotin has been reported to cause a positive bias, interpret results relative to patient's use of biotin. Lab Interpretation (test Abnormal code = 38426-6) [facility], [id number] 17:51:01 Test Item Value Reference Range Interpretation Comments VIT D 25OH (test code = 24 ng/mL 25-80 L 56055-7) BRANDI (test code = BRANDI) Deficiency: <20 ng/mLInsufficiency: 20-24 ng/mLOptimal: 25-80 ng/mL Lab Interpretation (test Abnormal code = 59932-5) [facility] 17:42:20 Test Item Value Reference Range Interpretation Comments FOLATE SER (test code = 6.1 ng/mL 3.0-20.0 Biot in has been 1662489444) reported to cau se a positive bias, interpret resul ts relative to patient's use o f biotin. Lab Interpretation (test Normal code = 36495-3) [facility] GLUCOSE (AUTOMATED)2021-05-21 17:17:00 Test Item Value Reference Range Interpretation Comments POCT GLU (test code = 5220487591) 175 mg/dL 70-110 H Lab Interpretation (test code = Abnormal 30165-6) [facility] [id number] 14:52:32 Test Item Value Reference Interpretation Comments Range TROPONIN I (test 0.109 ng/mL See_Comment H [Automated code = 4208265299) message] The system which generated this result [...] biotin. Lab Interpretation Abnormal (test code = 05727-3) [facility] [id number] 14:49:31 Test Item Value Reference Range Interpretation Comments IRON (test code = 4369018529) 30 ug/dL 50-160 L TIBC (test code = 9078339456) 185 ug/dL 250-410 L % FE SAT (test code = 4771573463) 16 % 20-50 L Lab Interpretation (test code = Abnormal 56040-5) [facility] GLUCOSE (AUTOMATED)2021-05-21 14:06:00 Test Item Value Reference Range Interpretation Comments POCT GLU (test code = 4499706049) 191 mg/dL 70-110 H Lab Interpretation (test code = Abnormal 85179-8) [facility] [id number] 14:05:25 Test Item Value Reference Range Interpretation Comments FERRITIN (test code = 715.0 ng/mL 11.0-264.0 H 2577317551) BRANDI (test code = BRANDI) Biotin has been reported to cause a negative bias, interpret results relative to patient's use of biotin. Lab Interpretation (test Abnormal code = 57106-4) [facility] [id number] 13:56:37 Test Item Value Reference Range Interpretation Comments NT-proBNP (test code 046918 pg/mL See_Comment H [Autom ated = 5353960488) message] The system which generated this result transmitted reference range : <=125. The reference range was not used to interpret this result as normal/abnormal . BRANDI (test code = BRANDI) Biotin has been reported to cause a negative bias, interpret results relative to patient's use of biotin. Lab Interpretation Abnormal (test code = 97321-0) [facility] [id number] 13:43:04 Test Item Value Reference Interpretation Comments Range TROPONIN I (test 0.100 ng/mL See_Comment H [Automated code = 7746216850) message] The system which generated this result [...] biotin. Lab Interpretation Abnormal (test code = 44389-9) [facility] (ALB,T.PRO,BILI T,BU/BC,ALT,AST,ALK PHOS)2021-05-21 13:30:03 Test Item Value Reference Range Interpretation Comments TOTAL BILI (test code = 1622514361) 0.7 mg/dL 0.1-1.1 BILI UNCON (test code = 2966404805) 0.0 mg/dL 0.1-1.1 L BILI CONJ (test code = 9304742280) 0.0 mg/dL 0.0-0.3 T PROTEIN (test code = 1416751402) 7.2 g/dL 6.3-8.2 ALBUMIN (test code = 7785519015) 3.5 g/dL 3.5-5.0 ALK PHOS (test code = 4424112408) 156 U/L 34-122 H ALTv (test code = 1742-6) 12 U/L 5-35 AST(SGOT) (test code = 0521006225) 28 U/L 13-40 Lab Interpretation (test code = Abnormal 27594-9) [facility] WITH [id number] 10:18:09 Test Item Value Reference Range Interpretation Comments WBC (test code = See_Comment [Automated 6690-2) message] The sy stem which generated this result transmitted reference range : 4.30 - 11.10 10*3/?L. The reference range was not used to interpret this result as normal/abnormal . RBC (test code = See_Comment L [Automated 369-8) message] The sy stem which generated this [...] (test code = 52.3 fL 39.0-49.9 H 61544-9) RDW-CV (test code = 14.9 % 12.0-15.5 788-0) PLT (test code = See_Comment L [Automated 777-3) message] The sy stem which generated this result transmitted reference range : 166 - 358 10*3/ ?L. The reference r alba was not used to interpret this result as normal/abnormal . MPV (test code = 11.0 fL 9.5-12.9 05229-7) NRBC/100 WBC (test See_Comment [Automat ed code = 0081415146) message] The system which generated this result transmitted reference range : 0.0 - 10.0 /100 WBCs. The refer ence range was not u sed to interpret th is result as normal/abnormal . NRBC x10^3 (test code <0.01 See_Comment [Auto mated = 1245149037) message] The s ystem which generated this result transmitted reference range : 10*3/?L. The reference range was not used to interpret this result as normal/abnormal . GRAN MAT (NEUT) % 74.4 % (test code = 770-8) IMM GRAN % (test code 0.30 % = 3201749919) LYMPH % (test code = 12.9 % 736-9) MONO % (test code = 11.2 % 5905-5) EOS % (test code = 0.7 % 713-8) BASO % (test code = 0.5 % 706-2) GRAN MAT x10^3(ANC) 4.40 10*3/uL 1.88-7.09 (test code = 9015816886) IMM GRAN x10^3 (test <0.03 0.00-0.06 code = 7901166724) LYMPH x10^3 (test code 0.76 10*3/uL 1.32-3.29 L = 731-0) MONO x10^3 (test code 0.66 10*3/uL 0.33-0.92 = 742-7) EOS x10^3 (test code = 0.04 10*3/uL 0.03-0.39 711-2) BASO x10^3 (test code 0.03 10*3/uL 0.01-0.07 = 704-7) Lab Interpretation Abnormal (test code = 73529-0) [facility] METABOLIC PANEL (NA, K, CL, CO2, GLUCOSE, BUN, CREATININE, CA)2021-05-21 10:17:29 Test Item Value Reference Range Interpretation Comments NA (test code = 132 mmol/L 135-145 L 6648190681) K (test code = 4.6 mmol/L 3.5-5.0 8061793799) CL (test code = 99 mmol/L 98-108 0128710570) CO2 TOTAL (test code = 27 mmol/L 23-31 1091077139) AGAP (test code = 2-16 0657616375) BUN (test code = 30 mg/dL 7-23 H 3897297600) GLUCOSE (test code = 129 mg/dL 70-110 H 3040765095) CREATININE (test code = 4.51 mg/dL 0.50-1.04 H 2645665470) CALCIUM (test code = 8.1 mg/dL 8.6-10.6 L 4059416606) eGFR (test code = mL/min/1.73m2 8903115346) BRANDI (test code = BRANDI) Association of [...] tests). Lab Interpretation Abnormal (test code = 53048-5) [facility] GLUCOSE (AUTOMATED)2021-05-21 02:24:31 Test Item Value Reference Range Interpretation Comments POCT GLU (test code = 2915185877) 123 mg/dL 70-110 H Lab Interpretation (test code = Abnormal 03348-7) [facility] GLUCOSE (AUTOMATED)2021-05-20 22:40:15 Test Item Value Reference Range Interpretation Comments POCT GLU (test code = 5253859689) 193 mg/dL 70-110 H Lab Interpretation (test code = Abnormal 09235-8) [facility] GLUCOSE (AUTOMATED)2021-05-20 17:24:39 Test Item Value Reference Range Interpretation Comments POCT GLU (test code = 3137806401) 129 mg/dL 70-110 H Lab Interpretation (test code = Abnormal 02272-9) [facility] [id number] 16:20:09 Test Item Value Reference Range Interpretation Comments NT-proBNP (test code 912031 pg/mL See_Comment H [Autom ated = 0096183037) message] The system which generated this result transmitted reference range : <=125. The reference range was not used to interpret this result as normal/abnormal . BRANDI (test code = BRANDI) Biotin has been reported to cause a negative bias, interpret results relative to patient's use of biotin. Lab Interpretation Abnormal (test code = 12115-6) [facility] GLUCOSE (AUTOMATED)2021-05-20 13:50:50 Test Item Value Reference Range Interpretation Comments POCT GLU (test code = 8301952365) 142 mg/dL 70-110 H Lab Interpretation (test code = Abnormal 27749-7) [facility]LASC[facility] [id number] 11:29:26 Test Item Value Reference Range Interpretation Comments LDH (test code = 4305470188) 424 U/L 300-600 Slight hemolysis Lab Interpretation (test code Normal = 62069-9) [facility] METABOLIC PANEL (NA, K, CL, CO2, GLUCOSE, BUN, CREATININE, CA)2021-05-20 11:28:05 Test Item Value Reference Range Interpretation Comments NA (test code = 132 mmol/L 135-145 L 4038468921) K (test code = 4.6 mmol/L 3.5-5.0 0368062308) CL (test code = 97 mmol/L 98-108 L 2655995598) CO2 TOTAL (test code = 26 mmol/L 23-31 7596798265) AGAP (test code = 2-16 8199886070) BUN (test code = 44 mg/dL 7-23 H 1829848355) GLUCOSE (test code = 161 mg/dL 70-110 H 3701398937) CREATININE (test code = 6.29 mg/dL 0.50-1.04 H 8482119018) CALCIUM (test code = 8.0 mg/dL 8.6-10.6 L 8221904402) eGFR (test code = mL/min/1.73m2 5706795079) BRANDI (test code = BRANDI) Association of [...] tests). Lab Interpretation Abnormal (test code = 24740-8) [facility]PROT[facility] / [id number] 11:17:25 Test Item Value Reference Range Interpretation [...] tions. Lab Interpretation (test Normal code = 08596-4) [facility] GLUCOSE (AUTOMATED)2021-05-20 01:38:05 Test Item Value Reference Range Interpretation Comments POCT GLU (test code = 2623379665) 181 mg/dL 70-110 H Lab Interpretation (test code = Abnormal 84034-9) [facility] GLUCOSE (AUTOMATED)2021-05-19 23:12:33 Test Item Value Reference Range Interpretation Comments POCT GLU (test code = 5168469054) 129 mg/dL 70-110 H Lab Interpretation (test code = Abnormal 10393-6) [facility] GLUCOSE (AUTOMATED)2021-05-19 17:43:05 Test Item Value Reference Range Interpretation Comments POCT GLU (test code = 5127691649) 195 mg/dL 70-110 H Lab Interpretation (test code = Abnormal 65538-4) [facility] [id number] 16:56:37 Test Item Value Reference Range Interpretation Comments NT-proBNP (test code 409793 pg/mL See_Comment H [Autom ated = 9685506981) message] The system which generated this result transmitted reference range : <=125. The reference range was not used to interpret this result as normal/abnormal . BRANDI (test code = BRANDI) Biotin has been reported to cause a negative bias, interpret results relative to patient's use of biotin. Lab Interpretation Abnormal (test code = 20157-7) [facility] METABOLIC PANEL (NA, K, CL, CO2, GLUCOSE, BUN, CREATININE, CA)2021-05-19 15:16:19 Test Item Value Reference Range Interpretation Comments NA (test code = 132 mmol/L 135-145 L 5449976471) K (test code = 4.7 mmol/L 3.5-5.0 2542676569) CL (test code = 98 mmol/L 98-108 4805718620) CO2 TOTAL (test code = 24 mmol/L 23-31 2410470016) AGAP (test code = 2-16 9388710943) BUN (test code = 30 mg/dL 7-23 H 3003975075) GLUCOSE (test code = 101 mg/dL 70-110 3285361072) CREATININE (test code = 4.70 mg/dL 0.50-1.04 H 4534390836) CALCIUM (test code = 8.3 mg/dL 8.6-10.6 L 7362447629) eGFR (test code = mL/min/1.73m2 9119240038) BRANDI (test code = BRANDI) Association of [...] tests). Lab Interpretation Abnormal (test code = 26440-3) [facility] 14:16:27 Test Item Value Reference Range Interpretation Comments POCT GLU (test code = 1325843814) 112 mg/dL 70-110 H Lab Interpretation (test code = Abnormal 57329-0) [facility] WITH [id number] 13:09:08 Test Item Value Reference Range Interpretation [...] (test code = 51.2 fL 39.0-49.9 H 60438-2) RDW-CV (test code = 14.6 % 12.0-15.5 788-0) PLT (test code = See_Comment L [Automated 777-3) message] The sy stem which generated this result transmitted reference range : 166 - 358 10*3/ ?L. The reference r alba was not used to interpret this result as normal/abnormal . MPV (test code = 11.0 fL 9.5-12.9 31629-1) NRBC/100 WBC (test See_Comment [Automat ed code = 9051758104) message] The system which generated this result transmitted reference range : 0.0 - 10.0 /100 WBCs. The refer ence range was not u sed to interpret th is result as normal/abnormal . NRBC x10^3 (test code <0.01 See_Comment [Auto mated = 2085418357) message] The s ystem which generated this result transmitted reference range : 10*3/?L. The reference range was not used to interpret this result as normal/abnormal . GRAN MAT (NEUT) % 82.8 % (test code = 770-8) IMM GRAN % (test code 0.40 % = 8921658609) LYMPH % (test code = 7.8 % 736-9) MONO % (test code = 7.9 % 5905-5) EOS % (test code = 0.7 % 713-8) BASO % (test code = 0.4 % 706-2) GRAN MAT x10^3(ANC) 5.98 10*3/uL 1.88-7.09 (test code = 9529628893) IMM GRAN x10^3 (test 0.03 10*3/uL 0.00-0.06 code = 4382514294) LYMPH x10^3 (test code 0.56 10*3/uL 1.32-3.29 L = 731-0) MONO x10^3 (test code 0.57 10*3/uL 0.33-0.92 = 742-7) EOS x10^3 (test code = 0.05 10*3/uL 0.03-0.39 711-2) BASO x10^3 (test code 0.03 10*3/uL 0.01-0.07 = 704-7) Lab Interpretation Abnormal (test code = 43548-7) [facility] ([facility]Ab)2021-05-19 09:35:37 Test Item Value Reference Range Interpretation Comments HBsAB (test code = Positive 1006895219) HBsAb mIU/mL Semi-Quantitative (test code = 2095735966) BRANDI (test code = Interpretation: BRANDI) ?Hepatitis B Surface Antibody ? Negative - Patient is considered to be not immune to infection with HBV. ? ? Positive - Anti-HBs detected at greater than or equal to 12 mIU/mL. ?Patient is considered to be immune to infection with HBV. ? [facility]Heu[facility]utetis B Surface Antigen (HBsAg)2021-05-19 09:17:53 Test Item Value Reference Range Interpretation Comments HBsAg Semi-Quantitative (test code = Negative Negative 5195-3) [facility] GLUCOSE (AUTOMATED)2021-05-19 03:13:02 Test Item Value Reference Range Interpretation Comments POCT GLU (test code = 5200661905) 110 mg/dL 70-110 Lab Interpretation (test code = Normal 14202-3) [facility] GLUCOSE (AUTOMATED)2021-05-18 23:00:40 Test Item Value Reference Range Interpretation Comments POCT GLU (test code = 1685224762) 177 mg/dL 70-110 H Lab Interpretation (test code = Abnormal 03677-7) [facility] GLUCOSE (AUTOMATED)2021-05-18 17:50:50 Test Item Value Reference Range Interpretation Comments POCT GLU (test code = 4788819188) 179 mg/dL 70-110 H Lab Interpretation (test code = Abnormal 80648-8) [facility] GLUCOSE (AUTOMATED)2021-05-18 17:26:29 Test Item Value Reference Range Interpretation Comments POCT GLU (test code = 5313572677) 171 mg/dL 70-110 H Lab Interpretation (test code = Abnormal 76063-1) [facility] METABOLIC PANEL (NA, K, CL, CO2, GLUCOSE, BUN, CREATININE, CA)2021-05-18 15:43:01 Test Item Value Reference Range Interpretation Comments NA (test code = 128 mmol/L 135-145 L 1115718339) K (test code = 5.5 mmol/L 3.5-5.0 H 8583289672) CL (test code = 94 mmol/L 98-108 L 2245846270) CO2 TOTAL (test code = 24 mmol/L 23-31 5906511917) AGAP (test code = 2-16 3868353192) BUN (test code = 56 mg/dL 7-23 H 4385073893) GLUCOSE (test code = 130 mg/dL 70-110 H 2545475197) CREATININE (test code = 7.52 mg/dL 0.50-1.04 H 2710388495) CALCIUM (test code = 7.8 mg/dL 8.6-10.6 L 3733158479) eGFR (test code = mL/min/1.73m2 9526764357) BRANDI (test code = BRANDI) Association of [...] tests). Lab Interpretation Abnormal (test code = 20719-4) [facility] GLUCOSE (AUTOMATED)2021-05-18 13:33:12 Test Item Value Reference Range Interpretation Comments POCT GLU (test code = 6191012049) 129 mg/dL 70-110 H Lab Interpretation (test code = Abnormal 78346-1) [facility] GLUCOSE (AUTOMATED)2021-05-17 22:57:15 Test Item Value Reference Range Interpretation Comments POCT GLU (test code = 7520755883) 215 mg/dL 70-110 H Lab Interpretation (test code = Abnormal 38726-9) [facility]09 Test Item Value Reference Range Interpretation Comments LVOT diameter (test code 2.00 cm = 9967479342) MV Peak E [place] (test code 134.0 cm/s = 7736671541) MV Peak A [place] (test code 54.2 cm/s = 2178416854) E/A ratio (test code = ratio 9240322272) E wave decelartion time 0.22 s (test code = 6267591056) LA size (test code = 5.4 cm 0197598452) MV stenosis pressure 1/2 65.0 ms time (test code = 7525795445) MV dec slope (test code 604.00 cm/s2 = 4797945559) Ao root annulus (test 2.7 cm code = 5532325077) Ao root diam (test code 2.70 cm = 2909921739) Aortic root (test code = 2.7 cm 4718051198) LVIDD (test code = 5.10 cm 8967004016) IVS (test code = 1.06 cm 7643511107) Interventricular Septum 1.06 cm Diastolic Thickness by 2D (test code = 6041885) LVPWD (test code = 1.00 cm 0219250226) PW (test code = 1.00 cm 0.6-1.5 3432932887) LVIDS (test code = 3.70 cm 9211306138) FS (test code = 27 % 1091304087) EF(Teich) (test code = 52.60 % 6967946337) EF - 2D (test code = 52.60 % 14363018) MR max PG (test code = 123.90 mm[Hg] 8604564783) MR max [place] (test code = 556.50 cm/s 2247089585) Mr max [place] (test code = 556.5 m/s 6300110574) LAV(MOD-sp4) (test code 46.70 mL = 7058549967) LA Volume Index (BP) 29.2 mL/m2 (test code = 9906784957) LA volume (BP) (test 51.8 mL code = 0728527150) LAV(MOD-sp2) (test code 52.40 mL = 7461674049) Aortic valve mean 105.0 cm/s velocity (test code = 9166703532) Ao peak [place] (test code = 160.0 cm/s 0337701378) Ao VTI (test code = 30.0 cm 3958344340) Ao max PG (test code = 10.20 mm[Hg] 7676841169) AV peak gradient (test mmHg code = 0190859742) AV mean gradient (test mmHg code = 0833693899) LVOT stroke volume (test 63.60 cm3 code = 6464173243) LVOT peak [place] (test code 108.3 cm/s = 5366567554) LVOT mn grad (test code mmHg = 7294749755) AV LVOT peak gradient mmHg (test code = 7556949731) LVOT peak VTI (test code 20.2 cm = 9276590736) AV area by cont VTI 2.1 cm2 (test code = 9178174732) AV area peak [place] (test 2.1 cm2 code = 7211063044) LV V1 mean (test code = 66.80 cm/s 4184315722) AV valve area (test code 2.12 cm2 = 1782792930) TR Peak [place] (test code = 342.9 cm/s 4413583390) Triscuspid Valve mmHg Regurgitation Peak Gradient (test code = 6369134943) PV REGURGITATION PEAK mmHg GRADIENT (test code = 7817051654) PI dec slope (test code 438.00 cm/s2 = 4805347215) Pulmonic Regurgitant End 105.3 cm/s Max Velocity (test code = 9265474624) Inferior Vena Cava 2.33 cm Diameter (test code = 5522853438) MV Prop V (test code = 37.50 cm/s 3662379230) Radiology Study observation (narrative) (test code = 48854-8) ADD (test code = ADD) Addendum by Brenda Fuentes MD on 05/17/2021 3:16 PM [employer]OCI[employer] PROFESS[employer] STUDIES ?Left?Ventricle: Low normal systolic function with a [...] Interpretation Comments POCT GLU (test code = 7261837096) 134 mg/dL 70-110 H Lab Interpretation (test code = Abnormal 55555-9) [facility] GLUCOSE (AUTOMATED)2021-05-17 14:18:37 Test Item Value Reference Range Interpretation Comments POCT GLU (test code = 4623666035) 119 mg/dL 70-110 H Lab Interpretation (test code = Abnormal 65354-7) [id number]:21:13 Test Item Value Reference Range Interpretation Comments NT-proBNP (test code 566132 pg/mL See_Comment H [Autom ated = 5526794664) message] The system which generated this result transmitted reference range : <=125. The reference range was not used to interpret this result as normal/abnormal . BRANDI (test code = BRANDI) Biotin has been reported to cause a negative bias, interpret results relative to patient's use of biotin. Lab Interpretation Abnormal (test code = 43409-0) [facility] WITHOUT [id number] 11:09:22 Test Item Value Reference Range Interpretation Comments WBC (test code = 6690-2) See_Comment [A utomated message] The system [employer] generated this result transmit levi reference range : 4.30 - 11.10 10*3/?L. The reference range was not used to interpret this result as normal/abnormal . RBC (test code = 789-8) See_Comment L [Au tomated message] The system [employer] generated this result transmit levi reference range [...] See_Comment L [Au tomated message] The [facility] generated this result transmit levi reference range : 166 - 358 10*3/?L. The reference range was not used to interpret this result as normal/abnormal . MPV (test code = 11.1 fL 9.5-12.9 18305-8) RDW-CV (test code = 14.5 % 12.0-15.5 788-0) RDW-SD (test code = 50.8 fL 39.0-49.9 H 58613-8) NRBC x10^3 (test code = <0.01 See_Comment [Au tomated message] 3483505736) The system [facility] generated this result transmit levi reference range : 10*3/?L. The reference range was not used to interpret this result as normal/abnormal . NRBC/100 WBC (test code See_Comment [Au tomated message] = 2957657492) The system [facility] generated this result transmit levi reference range : 0.0 - 10.0 /100 WBC s. The reference r alba was not used to interpret this result as normal/abnormal . IPF % (test code = 1050335936) Lab Interpretation (test Abnormal code = 98866-6) [facility]23 Test Item Value Reference Range Interpretation Comments MAGNESIUM (test code = 9017012871) 2.1 mg/dL 1.7-2.4 Lab Interpretation (test code = Normal 46992-6) [facility] METABOLIC PANEL (NA, K, CL, CO2, GLUCOSE, BUN, CREATININE, CA)2021-05-17 10:56:22 Test Item Value Reference Range Interpretation Comments NA (test code = 130 mmol/L 135-145 L 6416436559) K (test code = 4.6 mmol/L 3.5-5.0 8713000558) CL (test code = 96 mmol/L 98-108 L 0999887002) CO2 TOTAL (test code = 26 mmol/L 23-31 2032195944) AGAP (test code = 2-16 2508996118) BUN (test code = 42 mg/dL 7-23 H 5555627615) GLUCOSE (test code = 148 mg/dL 70-110 H 1025957347) CREATININE (test code = 5.84 mg/dL 0.50-1.04 H 5451386404) CALCIUM (test code = 7.9 mg/dL 8.6-10.6 L 7050212690) eGFR (test code = mL/min/1.73m2 4120272219) BRANDI (test code = BRANDI) Association of [...] tests). Lab Interpretation Abnormal (test code = 08472-2) [facility]02 Test Item Value Reference Range Interpretation Comments PHOSPHORUS (test code = 1049795472) 5.8 mg/dL 2.5-5.0 H Lab Interpretation (test code = Abnormal 43195-2) [facility] GLUCOSE (AUTOMATED)2021-05-16 22:43:07 Test Item Value Reference Range Interpretation Comments POCT GLU (test code = 6227790607) 231 mg/dL 70-110 H Lab Interpretation (test code = Abnormal 37702-3) [facility] GLUCOSE (AUTOMATED)2021-05-16 17:43:53 Test Item Value Reference Range Interpretation Comments POCT GLU (test code = 1374211791) 154 mg/dL 70-110 H Lab Interpretation (test code = Abnormal 17436-0) [facility] GLUCOSE (AUTOMATED)2021-05-16 13:42:36 Test Item Value Reference Range Interpretation Comments POCT GLU (test code = 5007459901) 121 mg/dL 70-110 H Lab Interpretation (test code = Abnormal 02581-7) [facility] WITHOUT [id number] 09:48:31 Test Item Value Reference Range Interpretation Comments WBC (test code = 6690-2) See_Comment [A utomated message] The system [employer] generated this result transmit levi reference range : 4.30 - 11.10 10*3/?L. The reference range was not used to interpret this result as normal/abnormal . RBC (test code = 789-8) See_Comment L [Au tomated message] The system [employer] generated this result transmit levi reference range [...] See_Comment L [Au tomated message] The system [facility] generated this result transmit levi reference range : 166 - 358 10*3/?L. The reference range was not used to interpret this result as normal/abnormal . MPV (test code = 10.9 fL 9.5-12.9 54936-0) RDW-CV (test code = 15.0 % 12.0-15.5 788-0) RDW-SD (test code = 52.6 fL 39.0-49.9 H 70462-8) NRBC x10^3 (test code = <0.01 See_Comment [Au tomated message] 9373434354) The system [facility] generated this result transmit levi reference range : 10*3/?L. The reference range was not used to interpret this result as normal/abnormal . NRBC/100 WBC (test code See_Comment [Au tomated message] = 9921515604) The system [facility] generated this result transmit levi reference range : 0.0 - 10.0 /100 WBC s. The reference r alba was not used to interpret this result as normal/abnormal . IPF % (test code = 8609030527) Lab Interpretation (test Abnormal code = 83634-5) [facility] (Total Cholesterol, Triglycerides, HDL)2021-05-16 09:36:18 Test Item Value Reference Range Interpretation Comments CHOL (test code = 157 mg/dL 120-200 8069487181) HDL (test code = 26 mg/dL >50 L 3703952989) HDLC RATIO (test code = See_Comment H [Au tomated message] 2255165696) The system [facility] [employer] generated this result transmit levi reference range : <=4.5. The refe rence range was not u sed to interpret th is result as normal/abnormal . TRIG (test code = 146 mg/dL 30-170 0433068272) LDL CHOL (test code = 102 mg/dL See_Comment [Auto mated message] 15842-2) The system [facility] generated this result transmit levi reference range : <=160. The refe rence range was not u sed to interpret th is result as normal/abnormal . VLDL (test code = 29 mg/dL 5-60 9784478861) Lab Interpretation (test Abnormal code = 12547-8) [facility]cos[facility] Hemoglobin (A1C)2021-05-16 09:22:50 Test Item Value Reference Range Interpretation Comments HGB A1C (test code = 6.2 % 4.0-5.7 H 4548-4) BRANDI (test code = BRNADI) Reference RangesNormal: <5.7%Prediabetes: 5.7 - 6.4%Diabetes: > 6.5% Lab Interpretation (test Abnormal code = 62378-0) [facility]Trop[facility] [id number] 09:19:18 Test Item Value Reference Interpretation Comments Range TROPONIN I (test 0.028 ng/mL See_Comment [Automated code = 9291046065) message] The system which generated this result [...] biotin. Lab Interpretation Normal (test code = 84357-1) [facility] (NA, K, CL, CO2, GLUCOSE, BUN, CREATININE, CA)2021-05-16 09:08:35 Test Item Value Reference Range Interpretation Comments NA (test code = 134 mmol/L 135-145 L 0212101117) K (test code = 4.3 mmol/L 3.5-5.0 8381616535) CL (test code = 98 mmol/L 98-108 3245095941) CO2 TOTAL (test code = 27 mmol/L 23-31 7389902496) AGAP (test code = 2-16 0997089990) BUN (test code = 28 mg/dL 7-23 H 8033292355) GLUCOSE (test code = 114 mg/dL 70-110 H 7255094908) CREATININE (test code = 4.79 mg/dL 0.50-1.04 H 4683559710) CALCIUM (test code = 8.2 mg/dL 8.6-10.6 L 4515704312) eGFR (test code = mL/min/1.73m2 3041494241) BRANDI (test code = BRANDI) Association of [...] tests). Lab Interpretation Abnormal (test code = 36109-9) [facility]Magnesium Cvcyp8551-33-42 09:08:35 Test Item Value Reference Range Interpretation Comments MAGNESIUM (test code = 7622627899) 2.2 mg/dL 1.7-2.4 Lab Interpretation (test code = Normal 09309-0) [facility]Troponin [id number] 03:08:26 Test Item Value Reference Interpretation Comments Range TROPONIN I (test 0.019 ng/mL See_Comment [Automated code = 1602627978) message] The system which generated this result [...] biotin. Lab Interpretation Normal (test code = 56071-8) [facility]Phosph[facility] Lxzpa3866-50-06 02:56:02 Test Item Value Reference Range Interpretation Comments PHOSPHORUS (test code = 9484610315) 4.5 mg/dL 2.5-5.0 Lab Interpretation (test code = Normal 78959-8) [facility]2021-05-16 02:28:15 Test Item Value Reference Range Interpretation Comments POCT GLU (test code = 5813232755) 155 mg/dL 70-110 H Lab Interpretation (test code = Abnormal 79682-4) [facility] HospitalThyroid Stimulating Hormone (TSH)2021-05-16 01:56:53 Test Item Value Reference Range Interpretation Comments TSH (test code = See_Comment [Automated message] 9309516875) The system [employer] generated this result transmitted ref erence range: 0.45 - 4 .70 mIU/L. The refe rence range was not u sed to interpret this result as normal/abnor mal. Lab Interpretation (test Normal code = 24593-3) [facility] HospitalGlycosylated Hemoglobin (A1C)2021-05-16 01:17:48 Test Item Value Reference Range Interpretation Comments HGB A1C (test code = 6.3 % 4.0-5.7 H 4548-4) BRANDI (test code = BRANDI) Reference RangesNormal: <5.7%Prediabetes: 5.7 - 6.4%Diabetes: > 6.5% Lab Interpretation (test Abnormal code = 67585-1) [facility]N-TERMINAL THB-TRP0860-14-11 20:42:55 Test Item Value Reference Range Interpretation Comments NT-proBNP (test code 980847 pg/mL See_Comment H [Autom ated = 2485245182) message] The system which generated this result transmitted reference range : <=125. The reference range was not used to interpret this result as normal/abnormal . BRANDI (test code = BRANDI) Biotin has been reported to cause a negative bias, interpret results relative to patient's use of biotin. Lab Interpretation Abnormal (test code = 12863-4) [facility] HospitalTROPONIN [id number] 20:28:40 Test Item Value Reference Interpretation Comments Range TROPONIN I (test 0.012 ng/mL See_Comment [Automated code = 2284340352) message] The system which generated this result [...] biotin. Lab Interpretation Normal (test code = 42424-6) [facility] HospitalD-MJTII6198-79-33 20:27:34 Test Item Value Reference Interpretation Comments Range D-DIMER (test code = See_Comment H [Autom ated 5905799597) message] The system which generated this result [...] diagnosis. Lab Interpretation Abnormal (test code = 65359-6) [facility] 20:17:56 Test Item Value Reference Range Interpretation Comments MAGNESIUM (test code = 6563001498) 1.9 mg/dL 1.7-2.4 Lab Interpretation (test code = Normal 00872-1) [facility]COMP. METABOLIC PANEL (06795)2021-05-15 20:17:36 Test Item Value Reference Range Interpretation Comments NA (test code = 136 mmol/L 135-145 5881242178) K (test code = 4.2 mmol/L 3.5-5.0 2155270142) CL (test code = 99 mmol/L 98-108 4652060434) CO2 TOTAL (test code = 26 mmol/L 23-31 3642147719) AGAP (test code = 2-16 9991096146) BUN (test code = 24 mg/dL 7-23 H 4765678164) GLUCOSE (test code = 112 mg/dL 70-110 H 9064297192) CREATININE (test code = 3.82 mg/dL 0.50-1.04 H 4679134972) TOTAL BILI (test code = 1.0 mg/dL 0.1-1.6 9080543162) CALCIUM (test code = 8.5 mg/dL 8.6-10.6 L 3204004840) T PROTEIN (test code = 8.6 g/dL 6.3-8.2 H 0655378443) ALBUMIN (test code = 4.2 g/dL 3.5-5.0 3016568091) ALK PHOS (test code = 176 U/L 34-122 H 7915678471) ALTv (test code = 13 U/L 1742-6) AST(SGOT) (test code = 26 U/L 13-40 9936234125) eGFR (test code = mL/min/1.73m2 4112712028) BRANDI (test code = BRANDI) Association of [...] tests). Lab Interpretation Abnormal (test code = 54556-2) [facility]LIP[facility] 20:17:15 Test Item Value Reference Range Interpretation Comments LIPASE (test code = 6108765551) 125 U/L 0-220 Lab Interpretation (test code = Normal 18436-6) [facility] HospitalPROTHROMBIN TIME / [id number] 20:02:29 Test Item Value Reference Range Interpretation Comments PROTIME PATIENT (test See_Comment [Auto mated message] code = 5964-2) The system [employer] generated this result transmitted ref erence range: 12.0 - 1 4.7 Seconds. The re ference range was not u sed to interpret this result as normal/abnor mal. INR (test code = 6301-6) Nor mal INR <1.1; Warfarin Therap eutic range 2.0 to 3. 0 or 2.5 to 3.5, dep ending upon the indica tions. Lab Interpretation (test Normal code = 41464-1) [facility] WITH [id number] 19:52:47 Test Item Value Reference Range Interpretation [...] (test code = 52.6 fL 39.0-49.9 H 78043-0) RDW-CV (test code = 15.0 % 12.0-15.5 788-0) PLT (test code = See_Comment L [Automated 777-3) message] The sy stem which generated this result transmitted reference range : 166 - 358 10*3/ ?L. The reference r alba was not used to interpret this result as normal/abnormal . MPV (test code = 10.9 fL 9.5-12.9 20973-3) NRBC/100 WBC (test See_Comment [Automat ed code = 3200570274) message] The system which generated this result transmitted reference range : 0.0 - 10.0 /100 WBCs. The refer ence range was not u sed to interpret th is result as normal/abnormal . NRBC x10^3 (test code <0.01 See_Comment [Auto mated = 9876177782) message] The s ystem which generated this result transmitted reference range : 10*3/?L. The reference range was not used to interpret this result as normal/abnormal . GRAN MAT (NEUT) % 74.8 % (test code = 770-8) IMM GRAN % (test code 0.60 % = 1860158296) LYMPH % (test code = 12.4 % 736-9) MONO % (test code = 8.7 % 5905-5) EOS % (test code = 2.6 % 713-8) BASO % (test code = 0.9 % 706-2) GRAN MAT x10^3(ANC) 4.06 10*3/uL 1.88-7.09 (test code = 5622041117) IMM GRAN x10^3 (test 0.03 10*3/uL 0.00-0.06 code = 8716014952) LYMPH x10^3 (test code 0.67 10*3/uL 1.32-3.29 L = 731-0) MONO x10^3 (test code 0.47 10*3/uL 0.33-0.92 = 742-7) EOS x10^3 (test code = 0.14 10*3/uL 0.03-0.39 711-2) BASO x10^3 (test code 0.05 10*3/uL 0.01-0.07 = 704-7) Lab Interpretation Abnormal (test code = 57635-2) [facility] HospitalTroponin I.cardiac [Mass/volume] in Serum or Zszlkc8836-32-45 17:30:00 Test Item Value Reference Range Interpretation Comments Troponin I.cardiac 0.35 See_Comment [Automat ed message] The [Mass/volume] in Serum syste m which generated or Plasma (test code = this result transmitted Troponin I.cardiac reference range: <=0.045. [Mass/volume] in Serum The r eference range was or Plasma) not used to int erpret this result as normal/abnormal . [facility] lymphocyte hwctb4197-14-37 11:37:00 Test Item Value Reference Range Interpretation Comments Absolute lymphocyte count (test code = 0.7 0.7-4.9 Absolute lymphocyte count) [facility]2019-[facility] 11:37:00 Test Item Value Reference Range Interpretation Comments Basophil % (test code = 2.4 See_Comment [Au tomated message] The Basophil %) system which ge nerated this result tra nsmitted reference range : <=1.3. The reference r alba was not used to int erpret this result as normal/abnormal . [facility]annBlood anisocytosis cnjbxxlxl4441-38-37 11:37:00 Test Item Value Reference Range Interpretation [...] hematocrit (volume fraction)) [facility] morphology interpretation lugvnwdok7519-53-88 11:37:00 Test Item Value Reference Range Interpretation Comments Blood morphology interpretation Noted narrative (test code = Blood morphology interpretation narrative) [facility] platelet mean srnpau4685-67-90 11:37:00 Test Item Value Reference Range Interpretation Comments Blood platelet mean volume (test code = 9.8 7.6-11.3 Blood platelet mean volume) [facility]Blood poikilocytosis detection by light zuuqwfypce1023-51-88 11:37:00 Test Item Value Reference Range Interpretation Comments Blood poikilocytosis detection by light 1+ microscopy (test code = Blood poikilocytosis detection by light microscopy) [facility]annCalcium [Mass/volume] in Serum or Csfklf9945-10-22 11:37:00 Test Item Value Reference Range Interpretation [...] [Moles/volume] in Serum or Plasma) [facility]annChemistry wbsximwxa1285-68-09 11:37:00 Test Item Value Reference Range Interpretation Comments Chemistry procedure (test code = 95.3 80-100 Chemistry procedure) [facility]annChloride [Moles/volume] in Serum or Xturku7355-02-72 11:37:00 Test Item Value Reference Range Interpretation Comments Chloride [Moles/volume] in Serum or 98 98-107 Plasma (test code = Chloride [Moles/volume] in Serum or Plasma) [facility]annCreatinine [Mass/volume] in Serum or Zvwbtu9988-50-91 11:37:00 Test Item Value Reference Range Interpretation Comments Creatinine [Mass/volume] in Serum or 7.35 0.55-1.3 Plasma (test code = Creatinine [Mass/volume] in Serum or Plasma) [facility]annGlucose [Mass/volume] in Serum or Euhrvv7589-21-04 11:37:00 Test Item Value Reference Range Interpretation Comments Glucose [Mass/volume] in Serum or 110 74-106 Plasma (test code = Glucose [Mass/volume] in Serum or Plasma) [facility]annMagnesium [Mass/volume] in Serum or Oxnord2723-72-08 11:37:00 Test Item Value Reference Range Interpretation Comments Magnesium [Mass/volume] in Serum or 2.4 1.8-2.4 Plasma (test code = Magnesium [Mass/volume] in Serum or Plasma) [facility]annPhosphate [Mass/volume] in Serum or Otulfb2368-32-19 11:37:00 Test Item Value Reference Range Interpretation Comments Phosphate [Mass/volume] in Serum or 4.7 2.5-4.9 Plasma (test code = Phosphate [Mass/volume] in Serum or Plasma) [facility]annPotassium [Moles/volume] in Serum or Oxjbpc5779-21-40 11:37:00 Test Item Value Reference Range Interpretation [...] [facility]annUrea nitrogen [Mass/volume] in Serum or Zooqyn6897-16-88 11:37:00 Test Item Value Reference Range Interpretation Comments Urea nitrogen [Mass/volume] in Serum or 74 7-18 Plasma (test code = Urea nitrogen [Mass/volume] in Serum or Plasma) [facility]annUrine dipstick testing at yyuwr-ac-optb1595-11-17 11:37:00 Test Item Value Reference Range Interpretation Comments Urine dipstick testing at jlrcm-xn-ytgw 2.6 4.3-10.9 (test code = Urine dipstick testing at efkri-es-xjrv) [facility]annAlanine aminotransferase [Enzymatic activity/volume] in Serum or Plasma by With P-5'-2019-02-18 00:35:00 Test Item Value Reference Range Interpretation Comments Alanine aminotransferase [Enzymatic 64 12-78 activity/volume] in Serum or Plasma by With P-5'- (test code = Alanine aminotransferase [Enzymatic activity/volume] in Serum or Plasma by With P-5'-) [facility]annAlbumin [Mass/volume] in Serum or Plasma by Bromocresol purple (BCP) dye binding egkr0938-13-17 00:35:00 Test Item Value Reference Range Interpretation Comments Albumin [Mass/volume] in Serum or 3.6 3.4-5.0 Plasma by Bromocresol purple (BCP) dye binding meth (test code = Albumin [Mass/volume] in Serum or Plasma by Bromocresol purple (BCP) dye binding meth) [facility]annAlkaline phosphatase [Enzymatic activity/volume] in Serum or Qxuqiq2865-23-72 00:35:00 Test Item Value Reference Range Interpretation Comments Alkaline phosphatase [Enzymatic 236 45-117 activity/volume] in Serum or Plasma (test code = Alkaline phosphatase [Enzymatic activity/volume] in Serum or Plasma) [facility] HermannAspartate aminotransferase [Enzymatic activity/volume] in Serum or Plasma by With [id number] 00:35:00 Test Item Value Reference Range Interpretation Comments Aspartate aminotransferase [Enzymatic 48 15-37 activity/volume] in Serum or Plasma by With P-5 (test code = Aspartate aminotransferase [Enzymatic activity/volume] in Serum or Plasma by With P-5) [facility]annBilirubin.direct [Mass/volume] in Serum or Buyhkh1703-41-88 00:35:00 Test Item Value Reference Range Interpretation Comments Bilirubin.direct 0.2 See_Comment [Automated message] The [Mass/volume] in Serum syste m which generated or Plasma (test code = this result transmitted Bilirubin.direct reference r alba: <=0.2. [Mass/volume] in Serum The r eference range was or Plasma) not used to int erpret this result as emilee l/abnormal. [facility]annBilirubin.total [Mass/volume] in Serum or Iutxmg0842-29-15 00:35:00 Test Item Value Reference Range Interpretation Comments Bilirubin.total [Mass/volume] in Serum 0.6 0.2-1.0 or Plasma (test code = Bilirubin.total [Mass/volume] in Serum or Plasma) [facility]annINR in Blood by Coagulation vdzbk0060-92-92 00:35:00 Test Item Value Reference Range Interpretation Comments INR in Blood by Coagulation assay 1.15 1 (test code = INR in Blood by Coagulation assay) [facility]annNatriuretic peptide.B prohormone N-Terminal [Mass/volume] in Serum or Hcfgyx3593-06-37 00:35:00 Test Item Value Reference Range Interpretation Comments Natriuretic peptide.B prohormone > 378326 N-Terminal [Mass/volume] in Serum or Plasma (test code = Natriuretic peptide.B prohormone N-Terminal [Mass/volume] in Serum or Plasma) [facility]annProtein [Mass/volume] in Serum or Vifdqc5051-09-20 00:35:00 Test Item Value Reference Range Interpretation Comments Protein [Mass/volume] in Serum or 8.0 6.4-8.2 Plasma (test code = Protein [Mass/volume] in Serum or Plasma) [facility]annTroponin I.cardiac [Mass/volume] in Serum or Mleabc8280-58-92 00:35:00 Test Item Value Reference Range Interpretation [...] [facility]annUrea nitrogen [Mass/volume] in Serum or Eihxxp1591-37-31 04:05:00 Test Item Value Reference Range Interpretation Comments Urea nitrogen [Mass/volume] in Serum or 52 7-18 Plasma (test code = Urea nitrogen [Mass/volume] in Serum or Plasma) [facility]annUrine dipstick testing at kxfjh-cb-ptke4073-10-25 04:05:00 Test Item Value Reference Range Interpretation Comments Urine dipstick testing at ooruo-iw-oxfn 3.4 4.3-10.9 (test code = Urine dipstick testing at rtcjm-lc-mcoc) [facility] HermannAbsolute lymphocyte nrubn0321-44-59 04:05:00 Test Item Value Reference Range Interpretation Comments Absolute lymphocyte count (test code = 0.6 0.7-4.9 Absolute lymphocyte count) [facility] HermannBasophil %2019-01-26 04:05:00 Test Item Value Reference Range Interpretation Comments Basophil % (test code = 1.5 See_Comment [Au tomated message] The Basophil %) system which ge nerated this result tra nsmitted reference range : <=1.3. The reference r alba was not used to int erpret this result as normal/abnormal . [facility] count (number/volume)2019-01-26 04:05:00 Test Item Value Reference Range Interpretation Comments Blood erythrocytes count 3.64 3.86-4.86 (number/volume) (test code = Blood erythrocytes count (number/volume)) [facility]Blood hematocrit (volume fraction)2019-01-26 04:05:00 Test Item Value Reference Range Interpretation Comments Blood hematocrit (volume fraction) 35.7 36.0-45.0 (test code = Blood hematocrit (volume fraction)) [facility] HermannBlood morphology interpretation hnseyszfk2620-06-50 04:05:00 Test Item Value Reference Range Interpretation Comments Blood morphology interpretation Not seen narrative (test code = Blood morphology interpretation narrative) [facility]annBlood platelet mean dlmjxj6277-13-69 04:05:00 Test Item Value Reference Range Interpretation Comments Blood platelet mean volume (test code = 9.2 7.6-11.3 Blood platelet mean volume) [facility]annCalcium [Mass/volume] in Serum or Uthfpm8366-45-04 04:05:00 Test Item Value Reference Range Interpretation [...] [Moles/volume] in Serum or Plasma) [facility]annChemistry ayhdswxvn9317-05-54 04:05:00 Test Item Value Reference Range Interpretation Comments Chemistry procedure (test code = 98.1 80-100 Chemistry procedure) [facility]annChloride [Moles/volume] in Serum or Jxaevx2100-20-33 04:05:00 Test Item Value Reference Range Interpretation Comments Chloride [Moles/volume] in Serum or 98 98-107 Plasma (test code = Chloride [Moles/volume] in Serum or Plasma) [facility]annCreatinine [Mass/volume] in Serum or Uumnep6218-43-47 04:05:00 Test Item Value Reference Range Interpretation Comments Creatinine [Mass/volume] in Serum or 6.36 0.55-1.3 Plasma (test code = Creatinine [Mass/volume] in Serum or Plasma) [facility]annGlucose [Mass/volume] in Serum or Xwopij1641-51-60 04:05:00 Test Item Value Reference Range Interpretation Comments Glucose [Mass/volume] in Serum or 251 74-106 Plasma (test code = Glucose [Mass/volume] in Serum or Plasma) [facility]annPotassium [Moles/volume] in Serum or Hszjry2966-37-61 04:05:00 Test Item Value Reference Range Interpretation Comments Potassium [Moles/volume] in Serum or 4.7 3.5-5.1 Plasma (test code = Potassium [Moles/volume] in Serum or Plasma) [facility] [id number] 01:55:00 Test Item Value Reference Range Interpretation Comments Bacterial culture w ID NORMAL UPPER (test code = Bacterial RESPIRATORY HARI culture w ID) GROWN. [facility]2019-07-10 16:07:00 Test Item Value Reference Range Interpretation Comments Bedside Glucose (test code = Bedside 175 65-120 Glucose) [facility]2019-07-10 05:35:00 Test Item Value Reference Range Interpretation Comments Blood Morphology Blood Morphology Comment (test code = Comment Blood Morphology Comment) [facility]2019-07-10 05:35:00 Test Item Value Reference Range Interpretation Comments Total Bilirubin (test code = Total 0.5 0.2-1.0 Bilirubin) [facility]2019-07-10 05:35:00 Test Item Value Reference Range Interpretation Comments Sodium Level (test code = Sodium Level) 137 136-145 [facility]2019-07-10 05:35:00 Test Item Value Reference Range Interpretation Comments Serum Total Protein (test code = Serum 7.5 6.4-8.2 Total Protein) [facility]2019-07-10 05:35:00 Test Item Value Reference Range Interpretation Comments Potassium Level (test code = Potassium 4.8 3.5-5.1 Level) [facility]2019-07-10 05:35:00 Test Item Value Reference Range Interpretation Comments Glucose Level (test code = Glucose 90 74-106 Level) [facility]2019-07-10 05:35:00 Test Item Value Reference Range Interpretation Comments Globulin (test code = Globulin) 4.3 2.3-3.5 [facility]2019-07-10 05:35:00 Test Item Value Reference Range Interpretation Comments Estimat Glomerular 7 See_Comment [Automat ed message] The Filtration Rate (test system which generated code = Estimat this result t ransmitted Glomerular Filtration refere nce range: >=90. Rate) The reference r alba was not used to int erpret this result as normal/abnormal . [facility]2019-07-10 05:35:00 Test Item Value Reference Range Interpretation Comments Creatinine (test code = Creatinine) 6.02 0.55-1.3 [facility]2019-07-10 05:35:00 Test Item Value Reference Range Interpretation Comments Chloride Level (test code = Chloride 102 98-107 Level) [facility]2019-07-10 05:35:00 Test Item Value Reference Range Interpretation Comments Carbon Dioxide Level (test code = 25 21-32 Carbon Dioxide Level) [facility]2019-07-10 05:35:00 Test Item Value Reference Range Interpretation Comments Calcium Level (test code = Calcium 8.1 8.5-10.1 Level) [facility]2019-07-10 05:35:00 Test Item Value Reference Range Interpretation Comments Blood Urea Nitrogen (test code = Blood 43 7-18 Urea Nitrogen) [facility]2019-07-10 05:35:00 Test Item Value Reference Range Interpretation Comments Aspartate Amino Transf (AST/SGOT) (test 36 15-37 code = Aspartate Amino Transf (AST/SGOT)) [facility]2019-07-10 05:35:00 Test Item Value Reference Range Interpretation Comments Alkaline Phosphatase (test code = 252 45-117 Alkaline Phosphatase) [facility]2019-07-10 05:35:00 Test Item Value Reference Range Interpretation Comments Albumin/Globulin Ratio (test code = 0.7 1 1.1-1.8 Albumin/Globulin Ratio) [facility]2019-07-10 05:35:00 Test Item Value Reference Range Interpretation Comments Albumin (test code = Albumin) 3.2 3.4-5.0 [facility]2019-07-10 05:35:00 Test Item Value Reference Range Interpretation Comments Alanine Aminotransferase (ALT/SGPT) 57 12-78 (test code = Alanine Aminotransferase (ALT/SGPT)) [facility]2019-07-10 05:35:00 Test Item Value Reference Range Interpretation Comments White Blood Count (test code = White 2.9 4.3-10.9 Blood Count) [facility]2019-07-10 05:35:00 Test Item Value Reference Range Interpretation Comments Red Cell Distribution Width (test code 17.2 12.1-15.2 = Red Cell Distribution Width) [facility]2019-07-10 05:35:00 Test Item Value Reference Range Interpretation Comments Red Blood Count (test code = Red Blood 3.49 3.86-4.86 Count) [facility]2019-07-10 05:35:00 Test Item Value Reference Range Interpretation Comments Platelet Count (test code = Platelet 116 152-406 Count) [facility]2019-07-10 05:35:00 Test Item Value Reference Range Interpretation Comments Neutrophils % (test code = Neutrophils 49.4 41.7-73.7 %) [facility]2019-07-10 05:35:00 Test Item Value Reference Range Interpretation Comments Monocytes % (test code = Monocytes %) 10.4 3.3-12.3 [facility]2019-07-10 05:35:00 Test Item Value Reference Range Interpretation Comments Mean Platelet Volume (test code = Mean 8.7 7.6-11.3 Platelet Volume) [facility]2019-07-10 05:35:00 Test Item Value Reference Range Interpretation Comments Mean Corpuscular Volume (test code = 98.2 80-100 Mean Corpuscular Volume) [facility]2019-07-10 05:35:00 Test Item Value Reference Range Interpretation Comments Mean Corpuscular Hemoglobin Concent 33.0 32.0-36.0 (test code = Mean Corpuscular Hemoglobin Concent) [facility]2019-07-10 05:35:00 Test Item Value Reference Range Interpretation Comments Mean Corpuscular Hemoglobin (test 32.4 pg 27.0-35.0 code = Mean Corpuscular Hemoglobin) [facility]2019-07-10 05:35:00 Test Item Value Reference Range Interpretation Comments Lymphocytes % (test code = Lymphocytes 30.3 15.3-44.8 %) [facility]2019-07-10 05:35:00 Test Item Value Reference Range Interpretation Comments Hemoglobin (test code = Hemoglobin) 11.3 12.0-15.0 [facility]2019-07-10 05:35:00 Test Item Value Reference Range Interpretation Comments Hematocrit (test code = Hematocrit) 34.3 36.0-45.0 [facility]2019-07-10 05:35:00 Test Item Value Reference Range Interpretation Comments Eosinophils % (test code 8.8 See_Comment [A utomated message] The = Eosinophils %) system [facility] h generated this result tra nsmitted reference range : <=4.4. The reference r alba was not used to int erpret this result as normal/abnormal . [facility]2019-07-10 05:35:00 Test Item Value Reference Range Interpretation Comments Basophils % (test code 1.1 See_Comment [Aut omated message] The = Basophils %) system which generated this result tra nsmitted reference range : <=1.3. The reference r alba was not used to int erpret this result as normal/abnormal . [facility]2019-07-10 05:35:00 Test Item Value Reference Range Interpretation Comments Absolute Neutrophil (test code = 1.4 1.8-8.0 Absolute Neutrophil) [facility]2019-07-10 05:35:00 Test Item Value Reference Range Interpretation Comments Absolute Monocytes (CBC) (test code = 0.3 0.1-1.3 Absolute Monocytes (CBC)) [facility]2019-07-10 05:35:00 Test Item Value Reference Range Interpretation Comments Absolute Lymphocytes (CBC) (test code = 0.9 0.7-4.9 Absolute Lymphocytes (CBC)) [facility]2019-07-10 05:35:00 Test Item Value Reference Range Interpretation Comments Absolute Eosinophils 0.3 See_Comment [Autom ated message] The (CBC) (test code = system ich generated Absolute Eosinophils this re sult transmitted (CBC)) reference range : <=0.5. The reference r alba was not used to int erpret this result as normal/abnormal . [facility]2019-07-10 05:35:00 Test Item Value Reference Range Interpretation Comments Absolute Basophils 0.0 See_Comment [Automat ed message] The (CBC) (test code = system ich generated Absolute Basophils this resu lt transmitted (CBC)) reference range : <=0.5. The reference r alba was not used to int erpret this result as normal/abnormal . [facility]2019-07-09 05:43:00 Test Item Value Reference Range Interpretation Comments Prothrombin Time (test code = 12.9 9.5-12.5 Prothrombin Time) [facility]2019-07-09 05:43:00 Test Item Value Reference Range Interpretation Comments INR International Normalized Ratio 1.10 1 (test code = INR International Normalized Ratio) [facility]2019-07-09 05:43:00 Test Item Value Reference Range Interpretation Comments Triglycerides Level (test code = 89 Triglycerides Level) [facility]2019-07-09 05:43:00 Test Item Value Reference Range Interpretation Comments Phosphorus Level (test code = 6.3 2.5-4.9 Phosphorus Level) [facility]2019-07-09 05:43:00 Test Item Value Reference Range Interpretation Comments Magnesium Level (test code = Magnesium 2.3 1.8-2.4 Level) [facility]2019-07-09 05:43:00 Test Item Value Reference Range Interpretation Comments LDL Cholesterol, Calculated (test code 47 1 = LDL Cholesterol, Calculated) [facility]2019-07-09 05:43:00 Test Item Value Reference Range Interpretation Comments HDL Cholesterol (test code = HDL 57 40-60 Cholesterol) [facility]2019-07-09 05:43:00 Test Item Value Reference Range Interpretation Comments Cholesterol/HDL Ratio (test code = 2.14 1 Cholesterol/HDL Ratio) [facility]2019-07-09 05:43:00 Test Item Value Reference Range Interpretation Comments Cholesterol Level (test code = 122 Cholesterol Level) [facility]2019-07-08 19:49:00 Test Item Value Reference Range Interpretation Comments Troponin I (test code = 0.59 See_Comment [Au tomated message] The Troponin I) system which ge nerated this result tra nsmitted reference range : <=0.045. The reference r alba was not used to int erpret this result as normal/abnormal . [facility]2019-07-08 12:50:00 Test Item Value Reference Range Interpretation Comments Hepatitis B Surface Hepatitis B Surface Antigen (test code = Antigen Hepatitis B Surface Antigen) [facility]2019-07-08 12:50:00 Test Item Value Reference Range Interpretation Comments Hepatitis B Surface Hepatitis B Surface Antibody (test code = Antibody Hepatitis B Surface Antibody) [facility]2019-07-08 12:50:00 Test Item Value Reference Range Interpretation Comments Hepatitis B Core Total Hepatitis B Core Total Antibody (test code = Antibody Hepatitis B Core Total Antibody) [facility]2019-07-08 12:50:00 Test Item Value Reference Range Interpretation Comments Hepatitis C Antibody Hepatitis C Antibody (test code = Hepatitis C Antibody) [facility]2019-07-08 12:50:00 Test Item Value Reference Range Interpretation Comments Hepatitis C Ab Signal/Cutoff Ratio 0.05 ratio (test code = Hepatitis C Ab Signal/Cutoff Ratio) [facility]2019-07-08 07:36:00 Test Item Value Reference Range Interpretation Comments Rapid Troponin I (test 0.66 See_Comment [Aut omated message] The code = Rapid Troponin system which generated I) this result tra nsmitted reference range : <=0.045. The reference r alba was not used to int erpret this result as normal/abnormal . [facility]2019-07-08 07:36:00 Test Item Value Reference Range Interpretation Comments KM-[id number]-B-Type Natriuretic Peptide (test 09175 code = JY-Opd-[id number]-Type Natriuretic Peptide) [facility]
[2022-01-18 19:03] LABS: Hematocrit 21.5 % (36.0-45.0); Lymphocytes % 17.1 % (15.3-44.8); MCV 98.1 fL (80-100); MPV 8.5 fL (7.6-11.3)
[2022-01-18 19:05] LABS: Anisocytosis 1+; Blood Morphology Comment NOTED (NOT SEEN); Platelet Estimate ADEQ; White Blood Cell Scan OK (OK)
--- NOTE | 2022-01-18 19:24 | RAD REPORT ---
EXAM DESCRIPTION: RAD - Chest Single View - 01/18/2022 7:07 pm CLINICAL HISTORY: COUGH Chest pain. COMPARISON: Chest Single View dated 01/08/2022; Chest Single View dated 12/11/2021; Chest Single View d ated 12/07/2021; Chest Single View dated 11/25/2021; Thorax Wo Con dated 01/08/2022 FINDINGS: Portable technique limits examination quality. Hazy opacity is present in the inferior right hemithorax with moderate associated pleural effusion. L eft lung is grossly clear. The heart is mildly enlarged with sternotomy wires present. Dual lead pace r device is noted.
[2022-01-18 19:42] LABS: Albumin 3.1 g/dL (3.4-5.0); Potassium 4.2 mmol/L (3.5-5.1)
[2022-01-18 19:56] LABS: Bilirubin Direct 0.2 mg/dL (0-0.2); Bilirubin Total 0.8 mg/dL (0.2-1.0); Protein, Total 9.2 g/dL (6.4-8.2)
[2022-01-18 19:59] LABS: Magnesium 2.4 mg/dL (1.8-2.4); Troponin High Sensitivity 4709.7 pg/mL (<58.9)
[2022-01-18 20:42] LABS: Protime INR 1.2
--- NOTE | 2022-01-18 20:53 | RAD REPORT ---
EXAM DESCRIPTION: CT - Chest For Pe Angio - 01/18/2022 8:42 pm CLINICAL HISTORY: Chest pain. r/o pe COMPARISON: Thorax Wo Con dated 01/08/2022 TECHNIQUE: CT angiogram of the pulmonary arteries was performed with MIP. All CT scans are performed using dose optimization technique as appropriate and may include automated exposure control or mA/KV adjustment according to patient size. FINDINGS: No evidence of pulmonary thromboembolism. No acute aortic finding demonstrated. Heart size is prominent with pacer device noted. Small to moderate chronic loculated right pleural effusion. The lungs appear emphysematous with chronic atelectasis in the right lung base. Nodular liver contour likely representing cirrhosis. IMPRESSION: No evidence of pulmonary thromboembolism. Chronic small to moderate right pleural effusion and atelectasis right base.
--- NOTE | 2022-01-18 20:57 | EDPHYS ---
Physician Documentation [facility] Name: Qiana Valdez Age: 66 yrs Sex: Female : 1955 Arrival Date: 01/18/2022 Time: 16:34 Bed 24 Private MD: ED Physician Starr Huang HPI: 01/18 19:06 This 66 yrs old Female presents to ER via EMS with complaints of Cough - blood.snw 19:06 The patient or guardian reports cough, with productive sputum, blood clot. Severity of snw symptoms: At their worst the symptoms were moderate. Associated signs and symptoms: Pertinent positives: this patient has no pertinent positive symptoms. The patient has not experienced similar symptoms in the past. The patient has not recently seen a physician. finished 4 hours of dialysis today. Historical: - Allergies: 18:05 No Known Allergies; vg1 - PMHx: 18:05 Chronic ischemic heart disease; Diabetes - IDDM; DIALYSIS MWF; ESRD; GERD; High vg1 Cholesterol; hyperparathyroidism; Hypertension; IRON DEFICIENCY ANEMIA; Myocardial infarction; Pacemaker; - Immunization history:: Client reports receiving the 2nd dose of the Covid vaccine. - Social history:: Smoking status: Patient denies any tobacco usage or history of. ROS: 19:06 Constitutional: Negative for fever, chills, and weight loss, Eyes: Negative for injury, snw pain, redness, and discharge, ENT: Negative for injury, pain, and discharge, Neck: Negative for injury, pain, and swelling, Cardiovascular: Negative for chest pain, palpitations, and edema. 19:06 Abdomen/GI: Negative for abdominal pain, nausea, vomiting, diarrhea, and constipation, Back: Negative for injury and pain, : Negative for injury, bleeding, discharge, and swelling, MS/Extremity: Negative for injury and deformity, Skin: Negative for injury, rash, and discoloration, Neuro: Negative for headache, weakness, numbness, tingling, and seizure. 19:06 Respiratory: Positive for cough. Exam: 19:05 Constitutional: This is a well developed, well nourished patient who is awake, alert, snw and in no acute distress. Head/Face: Normocephalic, atraumatic. Eyes: Pupils equal round and reactive to light, extra-ocular motions intact. Lids and lashes normal. Conjunctiva and sclera are non-icteric and not injected. Cornea within normal limits. Periorbital areas with no swelling, redness, or edema. ENT: Nares patent. No nasal discharge, no septal abnormalities noted. Tympanic membranes are normal and external auditory canals are clear. Oropharynx with no redness, swelling, or masses, exudates, or evidence of obstruction, uvula midline. Mucous membranes moist. Neck: Trachea midline, no thyromegaly or masses palpated, and no cervical lymphadenopathy. Supple, full range of motion without nuchal rigidity, or vertebral point tenderness. No Meningismus. Chest/axilla: Normal chest wall appearance and motion. Nontender with no deformity. No lesions are appreciated. 19:05 Respiratory: Lungs have equal breath sounds bilaterally, clear to auscultation and percussion. No rales, rhonchi or wheezes noted. No increased work of breathing, no retractions or nasal flaring. Abdomen/GI: Soft, non-tender, with normal bowel sounds. No distension or tympany. No guarding or rebound. No evidence of tenderness throughout. Back: No spinal tenderness. No costovertebral tenderness. Full range of motion. Skin: Warm, dry with normal turgor. Normal color with no rashes, no lesions, and no evidence of cellulitis. MS/ Extremity: Pulses equal, no cyanosis. Neurovascular intact. Full, normal range of motion. Neuro: Awake and alert, GCS 15, oriented to person, place, time, and situation. Cranial nerves II-XII grossly intact. Motor strength 5/5 in all extremities. Sensory grossly intact. Cerebellar exam normal. Normal gait. 19:05 Cardiovascular: Rate: normal, Rhythm: regular, Heart sounds: murmur, systolic. 19:05 Special observations: completed 4 hours of dialysis today, coughed up "large blood clot". Vital Signs: 18:07 BP 154 / 72; Pulse 73; Resp 17; Temp 97.6(O); Pulse Ox 95% on R/A; Weight 58.97 kg; vg1 Height 5 ft. 3 in. (160.02 cm); Pain 0/10; 19:15 BP 169 / 77; Pulse 79; Resp 20; Pulse Ox 96% ; Pain 0/10; jj7 20:09 BP 174 / 86; Pulse 72; Resp 22; Pulse Ox 96% ; Pain 0/10; jj7 21:58 BP 196 / 88; Pulse 71; Resp 21; Pulse Ox 97% ; Pain 0/10; jj7 18:07 Body Mass Index 23.03 (58.97 kg, 160.02 cm) vg1 MDM: 18:58 Patient medically screened. snw 20:56 Data reviewed: vital signs, nurses notes. Data interpreted: Pulse oximetry: on room air snw is 95 %. Interpretation: acceptable. Counseling: I had a detailed discussion with the patient and/or guardian regarding: the historical points, exam findings, and any diagnostic results supporting the discharge/admit diagnosis, lab results, radiology results, the need for further work-up and treatment in the hospital. Physician consultation: Reny Hung PA-C was contacted at 20:57, regarding admission, would like admission per Dr. Ledy Argueta MD. 01/18 18:10 Order name: Basic Metabolic Panel; Complete Time: 20:10 snw 01/18 18:10 Order name: CBC with Diff; Complete Time: 19:07 snw 01/18 18:10 Order name: LFT's; Complete Time: 20:10 snw 01/18 18:10 Order name: Magnesium; Complete Time: 20:10 snw 01/18 18:10 Order name: NT PRO-BNP; Complete Time: 20:10 snw 01/18 18:10 Order name: PT-INR; Complete Time: 20:48 snw 01/18 18:10 Order name: Troponin HS; Complete Time: 20:10 snw 01/18 19:06 Order name: CBC Smear Scan; Complete Time: 19:07 EDMS 01/18 21:17 Order name: SARS-COV-2 Antigen Rapid; Complete Time: 22:11 mw2 01/18 23:57 Order name: PTT, Activated Partial Thromb; Complete Time: 00:54 EDMS 01/19 00:05 Order name: Creatine Phosphokinase; Complete Time: 00:54 EDMS 01/19 00:05 Order name: CKMB Creatine Kinase MB; Complete Time: 00:54 EDMS 01/19 00:05 Order name: Troponin High Sensitivity; Complete Time: 00:54 EDMS 01/19 04:44 Order name: CBC with Automated Diff; Complete Time: 05:06 EDMS 01/18 18:10 Order name: XRAY Chest (1 view); Complete Time: 20:03 snw 01/18 18:10 Order name: EKG; Complete Time: 18:12 snw 01/18 18:10 Order name: Cardiac monitoring snw 01/18 18:10 Order name: EKG - Nurse/Tech snw 01/18 18:10 Order name: IV Saline Lock; Complete Time: 20:58 snw 01/18 18:10 Order name: Labs collected and sent; Complete Time: 20:58 snw 01/18 18:10 Order name: O2 Per Protocol snw 01/18 18:10 Order name: CT Chest For PE Angio snw 01/18 18:29 Order name: Chest For Pe Angio; Complete Time: 20:57 EDMS 01/19 04:46 Order name: PTT, Activated Partial Thromb; Complete Time: 05:06 EDMS 01/19 05:01 Order name: Basic Metabolic Panel; Complete Time: 05:06 EDMS 01/19 05:01 Order name: Phosphorus; Complete Time: 05:06 EDMS 01/19 05:01 Order name: Troponin High Sensitivity; Complete Time: 05:06 EDMS 01/19 05:01 Order name: Lipid Profile; Complete Time: 05:06 EDMS 01/19 05:01 Order name: Magnesium; Complete Time: 05:06 EDMS 01/19 05:01 Order name: Thyroid Stimulating Hormone; Complete Time: 05:06 EDMS 01/18 18:10 Order name: O2 Sat Monitoring snw EC:32 Rate is 71 beats/min. Rhythm is regular. QT interval is prolonged. T waves are snw Inverted. Clinical impression: Abnormal EKG without significant change. Administered Medications: No medications were administered Disposition Summary: 01/18/22 20:56 Hospitalization Ordered Hospitalization Status: Inpatient Admission snw Provider: Ledy Argueta snw Condition: Fair snw Problem: an acute exacerbation snw Symptoms: have worsened snw Bed/Room Type: Standard snw Location: Telemetry/MedSurg (Inpatient)(01/19/22 13:21) bd Room Assignment: (01/19/22 15:38) ja1 Diagnosis - End stage renal disease snw - Hemoptysis snw - Pleural effusion in other conditions classified elsewhere snw - Elevated troponin snw Forms: - Medication Reconciliation Form snw - SBAR form snw Addendum: 01/21/2022 03:45 STAFF ATTESTATION STATEMENT: I was immediately available onsite in the emergency s d2 department for consultation in the care of this patient. I did not see or examine this patient. Starr Huang MD. Signatures: Dispatcher [employer] EDMS AdithyajeannieSarah Shelly, COMPO CONVEYOR OPERATOR-C COMPO CONVEYOR OPERATOR-Csnw Brianna Costello, RN RN cg Jose Aguilar RN RN ja1 Vivian Costello RN RN 1 Starr Huang MD MD sd2 Reny Hung, PA-C PA-C sb4 Corrections: (The following items were deleted from the chart) 01/18 21:15 20:56 [facility] 21:15 20:56 snw 01/19 13:21 01/18 21:15 [facility] ER HOLD cg 01/19 13:21 01/18 21:15 ERHOLD- cg 01/19 15:38 13:21 414 ja1
--- NOTE | 2022-01-18 20:57 | ER ---
Nurse's Notes [facility] Name: Qiana Valdez Age: 66 yrs Sex: Female : 1955 Arrival Date: 01/18/2022 Time: 16:34 Bed 24 Private MD: Diagnosis: End stage renal disease;Hemoptysis;Pleural effusion in other conditions classified elsewhere;Elevated troponin Presentation: 01/18 16:34 Chief complaint: EMS states: pt was at dialysis and she coughed a small blood clot up , iw she recently had a nose bleed in hospital and was told to stop her plavix per her financial director. Coronavirus screen: At this time, the client does not indicate any symptoms associated with coronavirus-19. Ebola Screen: Patient negative for fever greater than or equal to 101.5 degrees Fahrenheit, and additional compatible Ebola Virus Disease symptoms Patient denies exposure to infectious person. Patient denies travel to an Ebola-affected area in the 21 days before illness onset. No symptoms or risks identified at this time. Initial Sepsis Screen: Does the patient meet any 2 criteria? No. Patient's initial sepsis screen is negative. Does the patient have a suspected source of infection? No. Patient's initial sepsis screen is negative. Risk Assessment: Do you want to hurt yourself or someone else? Patient reports no desire to harm self or others. Onset of symptoms was January 18, 2022. 16:34 Method Of Arrival: EMS: [facility] iw 16:34 Acuity: SIXTO 3 iw 18:09 Note Pt denies cough or CP. vg1 Triage Assessment: 18:07 General: Appears in no apparent distress. comfortable, Behavior is calm, cooperative. vg1 Pain: Denies pain. EENT: Oral mucosa is moist. Historical: - Allergies: 18:05 No Known Allergies; vg1 - PMHx: 18:05 Chronic ischemic heart disease; Diabetes - IDDM; DIALYSIS MWF; ESRD; GERD; High vg1 Cholesterol; hyperparathyroidism; Hypertension; IRON DEFICIENCY ANEMIA; Myocardial infarction; Pacemaker; - Immunization history:: Client reports receiving the 2nd dose of the Covid vaccine. - Social history:: Smoking status: Patient denies any tobacco usage or history of. Screenin:08 Abuse screen: Denies threats or abuse. Nutritional screening: No deficits noted. jj7 Tuberculosis screening: No symptoms or risk factors identified. Fall Risk None identified. Assessment: 19:08 General: Appears in no apparent distress. comfortable, well groomed, Behavior is calm, jj7 cooperative, appropriate for age. Pain: Denies pain. Respiratory: No deficits noted. 19:08 Reassessment: ASSUMED CARE OF PT. PT SITTING IN WC. NO PAIN OR DISTRESS NOTED. NO NEEDS jj7 AT THIS TIME.. Vital Signs: 18:07 BP 154 / 72; Pulse 73; Resp 17; Temp 97.6(O); Pulse Ox 95% on R/A; Weight 58.97 kg; vg1 Height 5 ft. 3 in. (160.02 cm); Pain 0/10; 19:15 BP 169 / 77; Pulse 79; Resp 20; Pulse Ox 96% ; Pain 0/10; jj7 20:09 BP 174 / 86; Pulse 72; Resp 22; Pulse Ox 96% ; Pain 0/10; jj7 21:58 BP 196 / 88; Pulse 71; Resp 21; Pulse Ox 97% ; Pain 0/10; jj7 18:07 Body Mass Index 23.03 (58.97 kg, 160.02 cm) vg1 ED Course: 16:34 Patient arrived in ED. tp1 16:36 Triage completed. iw 16:55 [facility]C [facility]. snw 16:55 Starr Huang MD is Attending Physician. snw 18:07 Arm band placed on. vg1 19:08 Patient has correct armband on for positive identification. Call light in reach. jj7 19:09 XRAY Chest (1 view) In Process Unspecified. EDMS 19:17 Araceli Andrew, RN is Primary Nurse. jj7 20:31 Lab(s) recollected, by me, sent to lab. Accessed peripheral vein via ultrasound, bb utilizing dynamic ultrasound technique Powerglide midline 20g 8cm to left upper arm using hospital protocol with good blood return and flushes easily pt tolerated well. 20:44 Chest For Pe Angio In Process Unspecified. EDMS 20:55 Ledy Argueta MD is Hospitalizing Provider. snw 22:00 No provider procedures requiring assistance completed. jj7 Administered Medications: No medications were administered Medication: 19:08 VIS not applicable for this client. jj7 Outcome: 20:56 Decision to Hospitalize by Provider. ezequiel 01/19 16:27 Patient left the ED. Signatures: Dispatcher [employer] EDMS Karoline Villanueva, KADEN BUSINESS TEST ANALYST-Mei Day, RN RN bb Yvrose Fonseca, RN SUNITA iw Katt Olguin RN RN ss Vivian Costello, RN RN vg1 Soledad Grullon RN RN tp1 Araceli Andrew RN RN jj7
--- NOTE | 2022-01-18 21:32 | P.HP ---
Certification for Inpatient Patient admitted to: Inpatient With expected LOS: >2 Midnights Patient will require the following post-hospital care: None Practitioner: I am a practitioner with admitting privileges, knowledge of patient current condition, hospital course, and medical plan of care. Services: Services provided to patient in accordance with Admission requirements found in Title 42 Section 412.3 of the Code of Federal Regulations Patient History Date of Service: 01/19/22 Reason for admission: Elevated Troponin, ESRD History of Present Illness: Patient is a 66-year-old female with ESRD on HD MWF, afib, CHF, HTN, NIDDM, CAD, and anemia who presented to the ED after reportedly "coughing up a blood clot at dialysis." She states that cardiology has recently discontinued her plavix. She is not complaining of any pain, just concerned about the blood clot. Her labs today are significant for a BNP of 131,000, PT 13.2, troponin HS 4709, creat inine 3.15. CT chest angio negative for PE. COVID positive (but has been positive for over 1 month now). Patient admitted 10 days ago for afib RVR and required amiodarone and adenosine. She is not in afib RVR at this time and denies any chest pain. ED provider wishes to admit patient for further management. Allergies No Known Allergies Allergy (Verified 01/19/22 01:15) Home medications list reviewed: Yes Home Medications: Aspirin [Ecotrin 81 MG] 81 mg PO DAILY 10/13/21 Hydralazine [Apresoline*] 50 mg PO TID 10/13/21 Amoxicillin [Amoxil Cap*] 500 mg PO DAILY #7 cap 11/26/21 Nifedipine [Procardia Xl] 30 mg PO DAILY 01/09/22 Atorvastatin Calcium [Lipitor] 40 mg PO BEDTIME #30 tab 01/10/22 Metoprolol Tartrate [Lopressor*] 50 mg PO BID #60 tab 01/10/22 Hydrocodone 10/APAP 325 [Hendrix 10/325] 1 tab PO Q6H PRN #30 tab 01/11/22 - Past Medical/Surgical History Diabetic: Yes -: Hypertension -: Type 2 Diabetes Mellitus, Non-Insulin Dependent -: ESRD - MWF -: CAD with prior stent S/P CABG -: Hyperlipidemia -: GERD -: Anemia of chronic disease with iron deficiency -: Hyperparathyroidism -: Triple bypass 2016 -: Pacemaker -: Tubal ligation -: Fistula aneursym reconstruction 4 times -: Bilateral cataract surgery Psychosocial/ Personal History: Lives at home with daughter - Family History Mother -: Heart disease, Diabetes Father -: Heart disease, Diabetes - Social History Smoking Status: Never smoker Alcohol use: No CD- Drugs: No Caffeine use: Yes Place of Residence: Home Review of Systems Respiratory: Hemoptysis Physical Examination - Physical Exam General: Alert, In no apparent distress HEENT: Atraumatic, PERRLA, EOMI, Sclerae nonicteric Neck: Supple, 2+ carotid pulse no bruit, No LAD, Without JVD or thyroid abnormality Respiratory: Clear to auscultation bilaterally, Normal air movement Cardiovascular: Regular rate/rhythm, Normal S1 S2 Gastrointestinal: Normal bowel sounds, No tenderness Musculoskeletal: No tenderness Integumentary: No rashes Neurological: Normal speech, Normal strength at 5/5 x4 extr, Normal tone, Normal affect - Studies Laboratory Data (last 24 hrs) 01/18/22 20:24: PT 13.2 H, INR 1.20 01/18/22 18:53: WBC 5.90, Hgb 7.4 L, Hct 21.5 L, Plt Count 158 01/18/22 18:53: Sodium 133 L, Potassium 4.2, BUN 29 H, Creatinine 3.15 H, Glucose 123 H, Magnesium 2.4, Total Bilirubin 0.8, AST 37, ALT 32, Alkaline Phosphatase 192 H Assessment and Plan - Problems (Diagnosis) (1) Elevated troponin Current Visit: Yes Status: Acute (2) Atrial fibrillation Current Visit: Yes Status: Chronic Qualifiers: Atrial fibrillation type: paroxysmal Qualified Code(s): I48.0 - Paroxysmal atrial fibrillation (3) Congestive heart failure Current Visit: Yes Status: Chronic Qualifiers: Heart failure type: systolic Heart failure chronicity: acute on chronic Qualified Code(s): I50.23 - Acute on chronic systolic (congestive) heart failure (4) ESRD (end stage renal disease) Current Visit: Yes Status: Chronic (5) Hypertension Current Visit: Yes Status: Chronic Qualifiers: Hypertension type: primary hypertension Qualified Code(s): I10 - Essential (primary) hypertension (6) Type 2 diabetes mellitus Current Visit: Yes Status: Chronic Qualifiers: Diabetes mellitus warrant server insulin use: without warrant server use Diabetes mellitus complication status: with hyperglycemia Qualified Code(s): E11.65 - Type 2 diabetes mellitus with hyperglycemia - Plan -Heparin drip initiated. Follow protocol. Cardiology consulted. -Nephrology consulted for ESRD requiring HD -ACHS accu checks with mild sliding scale insulin -BP control. Monitor on telemetry -Trend serial cardiac enzymes. Trop has been elevated in the past but never this high. -Patient had adenosine and amiodarone about 10 days ago for afib RVR -COVID+ however patient initially tested positive over 1 month ago. Patient asymptomatic -Monitor and replete electrolytes per protocol -Reconcile and continue home medications -Full code Discharge Plan: Home Plan to discharge in: Greater than 2 days - Advance Directives Does patient have a Living Will: Yes Does patient have a Durable POA for Healthcare: No - Code Status/Comfort Care Code Status Assessed: Yes Critical Care: No Time Spent Managing Pts Care (In Minutes): 50
[2022-01-18 21:58] LABS: SARS-CoV-2 Antigen Rapid Res Positive (Negative)
[2022-01-18] MEDS ORDERED: ONDANSETRON 4 MG/2 ML VIAL IV PRN (23:08)
[2022-01-18] MEDS ORDERED: HEPARIN/D5W 25,000 UNIT/500 ML BAG IV SCH (23:08)
[2022-01-18] MEDS ORDERED: ACETAMINOPHEN 500 MG TAB PO PRN (23:08)
[2022-01-18] MEDS ORDERED: HYDRALAZINE HCL 20 MG/ML VIAL IV PRN (23:18)
[2022-01-18] MEDS ORDERED: HEPARIN/D5W 25,000 UNIT/500 ML BAG IV ONE (23:26)
[2022-01-19 00:04] LABS: CKMB Creatine Kinase MB 2.7 ng/mL (1.0-3.6)
[2022-01-19 00:05] LABS: Troponin High Sensitivity 4323.3 pg/mL (<58.9)
[2022-01-19 01:43] VITALS: O2SAT 100; BMI 23.6
[2022-01-19] MEDS ORDERED: OXYMETAZOLINE HCL 0.05% 15ML NAS PRN (02:57)
[2022-01-19] MEDS ORDERED: OXYMETAZOLINE HCL 0.05% 15ML NAS ONE (03:12)
[2022-01-19 04:42] LABS: Absolute Lymphocytes (CBC) 0.6 K/uL (0.7-4.9); Hematocrit 24.4 % (36.0-45.0); Lymphocytes % 20.6 % (15.3-44.8); MCV 98.9 fL (80-100); MPV 8.3 fL (7.6-11.3); RBC Red Blood Cell Count 2.46 M/uL (3.86-4.86)
[2022-01-19 05:00] LABS: Magnesium 2.3 mg/dL (1.8-2.4); Phosphorus 4.3 mg/dL (2.5-4.9); Potassium 4.4 mmol/L (3.5-5.1); Thyroid Stimulating Hormone 3.34 uIU/mL (0.360-3.740)
[2022-01-19 05:01] LABS: Troponin High Sensitivity 3865.8 pg/mL (<58.9)
[2022-01-19] MEDS ORDERED: ACETAMINOPHEN 500 MG TAB ONE (06:36)
[2022-01-19 13:27] VITALS: BP 176/65; TEMP 98
--- NOTE | 2022-01-19 14:02 | EKG ---
Test Date: 2022-01-18 Test Time: 21:28:52 Pbx Mechanic: DHARA MEASUREMENT RESULTS: Intervals: Rate: 71 [place]: 140 QRSD: 108 QT: 452 QTc: 491 [place]: P: 68 [place]: 140 QRS: -2 T: 220 INTERPRETIVE STATEMENTS: Normal sinus rhythm Incomplete right bundle branch block Minimal voltage criteria for LVH, may be normal variant ST & T wave abnormality, consider inferior ischemia ST & T wave abnormality, consider anterolateral ischemia Prolonged QT Abnormal ECG Electronically Signed On 01-19-22 14:00:53 CDT by Bradely Santamaria
--- NOTE | 2022-01-19 22:34 | CON ---
Date of Consultation: 01/19/2022 Reason For Consultation: Elevated troponin. History Of Present Illness: A 66-year-old female, history of end-stage renal disease on hemodialysis , atrial fibrillation, CHF, coronary artery disease, hypertension, diabetes, anemia, presented after she thought that she coughed up small blood streaks in dialysis. She was on Plavix that was recently discontinued. She denies having any chest pain. There is no shortness of breath. No nausea, vomit ing, diarrhea. No further episodes of cough. She does have positive COVID and it is chronic. The p atient does not have any other complaints. Past Medical History: As outlined above in HPI. Medications: Refer to reconciliation sheet for detailed list. Allergies: NO KNOWN DRUG ALLERGIES. Family History: No premature coronary artery disease or cancer. Social History: Does not smoke or drink. Does not use any drugs. Review of Systems: All systems reviewed and they are negative except for what is mentioned in HPI. Physical Examination: Vital Signs: Showed temperature is 98.0, pulse 72, breathing at 16, blood pressure 146/45, saturatin g 96% on room air. General: Pleasant middle-aged female, in no apparent distress. Head and Neck: Pupils are equal, reactive to light. Intact eye movements. No JVD. No cervical lym phadenopathy. Neck: Supple. Thyroid is not enlarged. Lungs: Clear to auscultation bilaterally. No rhonchi, rales, or crackles. No accessory muscle use. Heart: Regular rate and rhythm. No extra sounds. Abdomen: Soft, nontender. Bowel sounds positive. No organomegaly. No masses or hernia. No rigidi ty or rebound. Extremities: No clubbing or cyanosis. Intact pulses. Skin: No rashes. Neurologic: Alert, awake. No acute focal deficits appreciated. Investigations: Troponin peaked at 4700 and now it is 3800. The patient is chest pain-free. Assessment And Recommendations: 1.Elevated troponin. Patient has chronic troponin elevation. Does not have chest pain. She has co ronary artery disease that is not amenable to intervention. At the present time recommend medical ma nagement. Increase beta-kath, coronary vasodilator, aspirin daily, and follow up as an outpatient with ultrasound. 2.End-stage renal disease, on hemodialysis, to be continued as scheduled. 3.Hypertension. Blood pressure is acceptable. Continue home medications. SR/MODL Voice ID: [id number] Report ID: [id number]
== END 2022-01-19 16:27 | disposition home or self-care (01) | DRG 204 ==
LOC: ER 16:31 → INTOOBSV 21:07 → ERHOLD 21:07 → 4TH 01-19 14:35 → OBSVTOIN 01-19 15:38
PROVIDERS: ADMIT Hospitalist; ATTEND Hospitalist
DX: R04.2 Hemoptysis (principal); I50.23 Acute on chronic systolic (congestive) heart failure; N18.6 End stage renal disease; U07.1 COVID-19; I13.2 Hypertensive heart and chronic kidney disease with heart failure and with stage 5 chronic kidney disease, or end stage renal disease; E11.22 Type 2 diabetes mellitus with diabetic chronic kidney disease; E11.65 Type 2 diabetes mellitus with hyperglycemia; I25.10 Atherosclerotic heart disease of native coronary artery without angina pectoris; I48.0 Paroxysmal atrial fibrillation; K21.9 Gastro-esophageal reflux disease without esophagitis; E78.5 Hyperlipidemia, unspecified; I25.2 Old myocardial infarction; R77.8 Other specified abnormalities of plasma proteins; Z99.2 Dependence on renal dialysis; Z95.5 Presence of coronary angioplasty implant and graft; Z95.1 Presence of aortocoronary bypass graft; Z95.0 Presence of cardiac pacemaker; Z79.82 Long term (current) use of aspirin; Z79.899 Other long term (current) drug therapy
CPT/HCPCS: 36415; 71045; 71275; 80048; 80061; 80076; 82550; 82553; 83735; 83880; 84100; 84443; 84484; 85025; 85610; 85730; 87811; 93005; 99284; G0378; J1644; Q9967

== ENCOUNTER 2022-04-01 16:51 | Inpatient (IN) | payer OTHER ==
--- OUTSIDE RECORDS SUMMARY | 2022-04-01 17:32 | XMS REPORT | Continuity of Care Document ---
:1955 Author Organization [facility] t Address [address] [place] [address] Care Team Providers Name Role Phone Dianna Nunes MD, Wild Noel Primary Care Physician [phone] ANGELA LOCO Attending Clinician Unavail able Niki Dill RN Attending Clinician Unavailable BRENDA FUENTES Attending Clinician Unavailable FRACISCO HAYDEN Attending Clinician Unavailable Doctor Unassigned, [place] Attending Clinician Unavailable Fracisco Hayden MD Attending Clinician Brenda Fuentes MD Attending Clinician ROGER ARAUJO Attending Clinician Unavailable ROGER ARAUJO Attending Clinician Unavailable Lab, Ang - Db Attending Clinician Unavailable Adele Whitney Attending Clinician Jami Simms LMSW Attending Clinician Liz Sterling DO Attending Clinician ADELE CHESTER Attending Clinician Unavailable Billy Lu MD Attending Clinician Niki Pool RN Attending Clinician Unavailable NADYA MENDIOLA Attending Clinician Unavailable Neurology Attending Clinician Unavailable Blanka Kilpatrick RN Attending Clinician BILLY LU Attending Clinician Unavailable Kenny TRUJILLO, Joss Attending Clinician Kip TRUJILLO, Rony Attending Clinician Shiela TRUJILLO, Jameson Attending Clinician León TRUJILLO, Kanwal Attending Clinician Samia TRUJILLO, Mary Kate Christine Attending Clinician Ladarius Jc MD, Clary Resendiz Attending Clinici an Harjeet TRUJILLO, Luh Attending Clinician Logan Russo MD Attending Clinician LOGAN RUSSO Attending Clinician Unavailable Yeimy TRUJILLO, Angela Torres Attending Clinician [phone] Mitchel TRUJILLO, Nicola Thomas Attending Clinician Ju TRUJILLO, Krzysztof Biggs Attending Clinician Marissa TRUJILLO, Fadia Smith Attending Clinician Max TRUJILLO, Asad Whitman Attending Clinician [phone] Nikolay TRUJILLO, Vahid Mai Attending Clinician Ellie TRUJILLO, Sade Sandoval Attending Clinician Robert Allen Attending Clinician Donte TRUJILLO, Mili Attending Clinician Twin TRUJILLO, Bertrand Ivy Attending Clinician Dina Hudson Attending Clinician Unavailable Rakan Bennett RN Attending Clinician Unavailable NEIL THOMAS Attending Clinician Unavailable Dangelo Ibrahim DO Attending Clinician Neil Thomas MD Attending Clinician Jayjay Frazier Attending Clinician Unavailable THOMAS HUBBARD Attending Clinician Unavailable Alanis Cross PA-C Attending Clinician ALANIS CROSS Attending Clinician Unavailable ANGELA LOCO Admitting Clinician Unavail able BILLY LU Admitting Clinician Unavailable Billy Lu MD Admitting Clinician JAMESON KUO Admitting Clinician Unavailable NEIL THOMAS Admitting Clinician Unavailable Neil Thomas MD Admitting Clinician Payers Payer Name Policy Type Policy Number Effective Date Expiration Date S justice [employer] MEDICARE [id number] 2020 00:00:00 MEDICAID [facility] [id number] 2019 00:00:00 WELLMED/AARP MCARE [id number] 2021 ADV CHOICE PPO 00:00:00 MEDICAID OF [place] [id number] 2018 00:00:00 MEDICARE PART A [id number] 2014 \\T\\ B 00:00:00 VANDALIA [id number] 2020 HEALTHCARE/AARP 00:00:00 Problems Condition Condition Condition Status Onset Resolution Last Treating Co mments Source Name Details Category Date Date Treatment Clinician Date S/P MVR S/P MVR Disease Active Univers (mitral (mitral 09-29 ity of valve valve 00:00: [place] repair) repair) 00 Medical Branch S/P TVR S/P TVR Disease Active Univers (tricuspid (tricuspid 09-29 it y of valve valve 00:00: [place] repair) repair) 00 Medical Branch Endocardit Endocardit Disease Active U christian is and is and 09-04 ity of [...] (ADL) Branch Dyslipidem Dyslipidem Disease Active U christian ia ia 09-04 ity of 00:00: [place] 00 Medical Branch Decreased Decreased Disease Active Uni vers appetite appetite 6-03 ity of 00:00: [place] Medical [facility] Seizure Seizure Disease Active Univers 6-03 ity of 00:00: [place] [facility] 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 [place] 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 00 Medical depressive depressive Br anch disorder, disorder, without without psychotic psychotic features features Generalize Generalize Disease Active U nivers d anxiety d anxiety 6- ity of disorder disorder 00:00: [place] Medical Branch Panic Panic Disease Active Univers attacks attacks 6- ity of 00:00: [place] [address] Medical Branch Encounter Encounter Disease Active Uni vers to to 08-28 ity of establish establish 00:00: [facility] care care 00 [facility] Branch Hepatic Hepatic Disease Active Univers cirrhosis, cirrhosis, 08-28 it y of unspecifie unspecifie [place] hepatic [place] hepatic 00 Medi yoel cirrhosis cirrhosis Bran ch type, type, unspecifie unspecifie d whether d whether ascites ascites present present E44.1 Mild E44.1 Mild Disease Active U christian protein-ca protein-ca 4-05 it y of sadi sadi 00:00: [place] malnutriti malnutriti 00 Me dical on on Branch Hematochez Hematochez Disease Active U nivers ia ia 4-04 ity of 00:00: [address] Branch Moderate Moderate Disease [facility] [...] 65-70 PASP 65-70 00:00: Me dical 00 [place] PFO PFO Disease Active [facility] (patent (patent 3-17 [facility] foramen foramen 00:00: Medical ovale) ovale) 00 [place] small small Hypothermi Hypothermi Disease Active [facility] a, acute a, acute 3-17 [facility] post-op post-op 00:00: Medical 00 [place] Acute Acute Disease Active [facility] blood loss blood loss 3-17 [facility] kes anemia anemia 00:00: [address] Acute Acute Disease Active [facility] postoperat postoperat 3-17 [place] kes cristela pain cristela pain 00:00: Medica l 00 [place] MV MV Disease Active [facility] Endocardit Endocardit 3-17 [place] kes is is 00:00: [address] Acute Acute Disease Active [facility] encephalop encephalop 3-12 [place] kes athy athy 00:00: Medical 00 [place] HTN HTN Disease Active [facility] (hypertens (hypertens 3-12 [place] kes ion), ion), 00:00: Medical chronic chronic 00 [place] arterial arterial SAH SAH Disease Active [facility] (subarachn (subarachn 3-11 [place] kes oid oid 00:00: Medical hemorrhage hemorrhage 00 Ce nter ) ) Streptococ Streptococ Disease Active [facility] cus bovis cus bovis 3-07 [facility] infection infection 00:00: [facility] 00 [place] 06/18/21: 06/18/21: Disease Active [facility] t MV Repair MV Repair 3-06 [facility] s & TV & TV 00:00: Medical Repair Repair 00 [place] () (Russo) Pulmonary Pulmonary Disease Active Uni vers hypertensi hypertensi 2-13 it y of on on 00:00: [place] 00 Medical Branch Acute on Acute on Disease Active Unive rs chronic chronic 2-13 ity of respirator resp[place]ator [place] failure 00 Medi [place]el with with Branch hypoxia hypoxia Coronary Coronary Disease Active Unive rs artery artery 2-12 ity of disease disease 00:00: [place] involving involving 00 Medi yoel kenaitze kenaitze Branch coronary coronary artery of artery of kenaitze kenaitze heart with heart with angina angina pectoris [...] diabetes 2-12 ity of mellitus mellitus 00:00: [place] with with 00 Medical kidney kidney Branch complicati complicati on, on, without without long-term long-term current current use of use of insulin insulin Hypertensi Hypertensi Disease Active U nivers on, on, 2-11 ity of unspecifie unspecifie [place] type d type 00 Medical Branch 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 00:00: [place] with with 00 Medical diabetic diabetic Branch polyneurop polyneurop athy, athy, without without long-term long-term current current use of use of insulin insulin Cerebrovas Cerebrovas Disease Active U nivers cular cular 2-11 ity of accident accident 00:00: [place] (CVA), (CVA), 00 Medical unspecifie unspecifie Br anch d d mechanism mechanism ESRD on ESRD on Disease Active Univers dialysis dialysis 2-11 ity of 00:00: 00 Medical Branch Fall on Fall on [...] usal 4-20 ity of bleeding bleeding 00:00: [place] [facility] Branch Obesity Obesity Disease Active Univers [...] 22:28:00 l Condition Juanito 02/19/[address] [facility] Hypertensi Condition 2019-02-19 Memoria on with Hypertensi 22:28:00 l goal to be on with Patsy nn determined goal to be determined Condition 02/19/[address] [facility] Acute Acute Condition 2019-02-19 Mem oria respirator respirator 22:28:00 l y disease y disease Herm ivelisse Condition 02/19/[address] [facility] End-stage End-stage Condition 2019-02-19 Memoria renal renal 22:28:00 l disease on disease on He rmann hemodialys hemodialys is is Condition 02/19/[address] 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 End-stage Problem 2019-02-19 Me moria renal End-stage 22:28:00 l disease on renal Freddy n hemodialys disease on is hemodialys is Problem 02/19/[address] [facility] Upper Upper Problem 2019-02-19 Memor ia respirator respirator 22:28:00 l y y [place] infection infection Problem 02/19/[address] [facility] Elevated Elevated Problem 2019-02-19 Memoria troponin troponin 22:28:00 l level level Juanito Problem 02/19/[address] [facility] Pacemaker Pacemaker Disease [facility] Wears Wears Disease Active [facility]i glasses [facility] ESRD (end ESRD (end Disease Active [facility] stage stage [facility] renal renal Medical disease) disease) Center on on dialysis dialysis ([facility]), on (HCC), on dialysis dialysis via RUE via RUE AVF AVF Allergies, Adverse Reactions, Alerts Allergy Allergy Status Severity Reaction(s) Onset Inactive Treating Comm ents Source Name Type Date Date Clinician Heparin Propensi Active 0 "won't Methodi ty to [address] adverse 00:00: bleeding" Hospit a reaction 00 l s to drug NO KNOWN Drug Active Univers ALLERGIE Class ity of S [facility] [place] [facility] NO KNOWN Allergy Active [facility] ALLERGIE S Family History Family Member Diagnosis Comments Start Date Stop Date Source Natural brother [facility] Natural father [facility] mother [facility] sister [facility] Social History Social Habit Start Date Stop Date Quantity Comments Source History [facility] spital Alcohol Std Drinks History [facility] Alcohol Binge History [facility] spital Alcohol Comment Exposure to 2021-09-19 2021-09-29 Not sure [facility] 00:00:00 14:42:00 [facility] (event) Branch Tobacco use and 2020-07-24 2020-07-[address] [facility] Felicita keniall exposure 00:00:00 00:00:00 [facility] Social History 2019-02-19 2019-02-19 [facility] 22:28:00 22:28:00 Alcohol intake 2018-10-27 2018-10-27 [facility] 00:00:00 00:00:00 non-drinker of alcohol (finding) History SDOH 2018-10-26 2018-10-26 1 [facility] Alcohol Frequency 00:00:00 00:00:00 [birth year] DIANE Barraza 00:00:00 00:00:00 [facility] Smoking Status Start Date Stop Date Source Unknown if ever smoked Universit y [facility] Never smoked tobacco [facility] Medications Ordered Filled Start Stop Current Ordering Indication Dosage Frequency Signature Comments Components Source Medication Medication Date Date Medication? Clinician (SIG) Name Name atorazizatati Yes 40mg Take 40 mg Univers n 40 mg 6-28 by mouth ity of tablet 15:14: at [place] [address] bedtime. Medical Branch atorvastati Yes 40mg Take 40 mg Univers n 40 mg 6-28 by mouth ity of tablet 15:14: at [place] [address] bedtime. Medical Branch atorvastati Yes 40mg Take 40 mg Univers n 40 mg 6-28 by mouth ity of tablet 15:14: at [place] [address] bedtime. Medical Branch atorvastati Yes 40mg Take 40 mg Univers n 40 mg 6-28 by mouth ity of tablet 15:14: at [place] [address] bedtime. Medical Branch atorvastati Yes 40mg Take 40 mg Univers n 40 mg 6-28 by mouth ity of tablet 15:14: at [place] [address] bedtime. Medical Branch atorvastati Yes 40mg Take 40 mg Univers n 40 mg 6-28 by mouth ity of tablet 15:14: at [place] 02 bedtime. Medical Branch atorvastati 2021-0 Yes 40mg Take 40 mg Univers n 40 mg 6-28 by mouth ity of tablet 15:14: at [place] 02 bedtime. Medical Branch atorvastati 2021-0 Yes 40mg Take 40 mg Univers n 40 mg 6-28 by mouth ity of tablet 15:14: at [place] 02 bedtime. Medical Branch clopidogreL 2021-0 Yes [id number] 75mg Take 1 Univers 75 mg 6-28 tablet by ity of tablet 00:00: mouth [place] 00 daily. Medical Branch clopidogreL 2021-0 Yes [id number] 75mg Take 1 Univers 75 mg 6-28 tablet by ity of tablet 00:00: mouth [place] 00 daily. Medical Branch clopidogreL 2021-0 Yes [id number] 75mg Take 1 Univers 75 mg 6-28 tablet by ity of tablet 00:00: mouth [place] 00 daily. Medical Branch clopidogreL 2021-0 Yes [id number] 75mg Take 1 Univers 75 mg 6-28 tablet by ity of tablet 00:00: mouth [place] 00 daily. Medical Branch clopidogreL 2021-0 Yes [id number] 75mg Take 1 Univers 75 mg 6-28 tablet by ity of tablet 00:00: mouth [place] 00 daily. Medical Branch clopidogreL 2021-0 Yes [id number] 75mg Take 1 Univers 75 mg 6-28 tablet by ity of tablet 00:00: mouth [place] 00 daily. Medical Branch clopidogreL 2021-0 Yes [id number] 75mg Take 1 Univers 75 mg 6-28 tablet by ity of tablet 00:00: mouth [place] 00 daily. Medical Branch clopidogreL 2021-0 Yes [id number] 75mg Take 1 Univers 75 mg 6-28 tablet by ity of tablet 00:00: mouth [place] 00 daily. Medical Branch CARVEDILOL 2021-0 Yes 12.5mg Take 12.5 Univers ORAL 6-03 mg by ity of 10:47: mouth 2 [place] 33 (two) Medical times Branch daily. NIFEdipine [...] mouth 3 ity of capsule 10:47: (three) [place] 33 times Medical daily. Branch levETIRAcet 0 [...] mouth 3 ity of capsule 10:47: (three) [place] 33 times Medical daily. Branch levETIRAcet 0 [...] 33 (two) Medical times Branch daily. NIFEdipine 2022-0 Yes 10mg Take 10 mg U nivers 10 mg 6-03 by mouth 3 ity of capsule 10:47: (three) [place] 33 times Medical daily. Branch levETIRAcet 0 [...] mg by ity of 10:47: mouth 2 [place] 33 (two) Medical times [place] daily. NIFEdipine 0 Yes 10mg Take 10 mg U nivers 10 mg 6-03 by mouth 3 ity of capsule 10:47: (three) [place] 33 times Medical daily. Branch levETIRAcet 0 [...] mg by ity of 10:47: mouth 2 [place] 33 (two) Medical times [place] daily. NIFEdipine 2021-0 Yes 10mg Take 10 mg U nivers 10 mg 6-03 by mouth 3 ity of capsule 10:47: (three) [place] 33 times Medical daily. Branch levETIRAcet 0 [...] mouth 2 [place] 33 (two) Medical times [place] daily. NIFEdipine 2021-0 Yes 10mg Take 10 mg U nivers 10 mg 6-03 by mouth 3 ity of capsule 10:47: (three) [place] 33 times Medical daily. Branch levETIRAcet 2021-0 [...] mg by ity of 10:47: mouth 2 [place] 33 (two) Medical times [place] daily. NIFEdipine 2021-0 Yes 10mg Take 10 mg U nivers 10 mg 6-03 by mouth 3 ity of capsule 10:47: (three) [place] 33 times Medical daily. Branch levETIRAcet 2021-0 [...] and Tuesday. After dialysis mirtazapine 2021-0 Yes [id number] 15mg Take 1 Univers (REMERON) 6-03 tablet by ity o f 15 mg 00:00: mouth at [place] tablet 00 bedtime. Medical Branch traZODone 2021-0 Yes [id number] 50mg Take 1 Un kecia 50 mg 6-03 tablet by ity of tablet 00:00: mouth at [place] 00 bedtime. Medical Branch mirtazapine 2021-0 Yes [id number] 15mg Take 1 Univers (REMERON) 6-03 tablet by ity o f 15 mg 00:00: mouth at [place] tablet 00 bedtime. Medical Branch traZODone 2021-0 Yes [id number] 50mg Take 1 Un kecia 50 mg 6-03 tablet by ity of tablet 00:00: mouth at [place] 00 bedtime. Medical Branch mirtazapine 2021-0 Yes [id number] 15mg Take 1 Univers (REMERON) 6-03 tablet by ity o f 15 mg 00:00: mouth at [place] tablet 00 bedtime. Medical Branch traZODone 2021-0 Yes [id number] 50mg Take 1 Un kecia 50 mg 6-03 tablet by ity of tablet 00:00: mouth at [place] 00 bedtime. Medical Branch mirtazapine 2021-0 Yes [id number] 15mg Take 1 Univers (REMERON) 6-03 tablet by ity o f 15 mg 00:00: mouth at [place] tablet 00 bedtime. Medical Branch traZODone 2021-0 Yes [id number] 50mg Take 1 Un kecia 50 mg 6-03 tablet by ity of tablet 00:00: mouth at [place] 00 bedtime. Medical Branch mirtazapine 2021-0 Yes [id number] 15mg Take 1 Univers (REMERON) 6-03 tablet by ity o f 15 mg 00:00: mouth at [place] tablet 00 bedtime. Medical Branch traZODone 2021-0 Yes [id number] 50mg Take 1 Un kecia 50 mg 6-03 tablet by ity of tablet 00:00: mouth at [place] 00 bedtime. Medical Branch mirtazapine 2021-0 Yes [id number] 15mg Take 1 Univers (REMERON) 6-03 tablet by ity o f 15 mg 00:00: mouth at [place] tablet 00 bedtime. Medical Branch traZODone 2021-0 Yes [id number] 50mg Take 1 Un kecia 50 mg 6-03 tablet by ity of tablet 00:00: mouth at [place] 00 bedtime. Medical Branch mirtazapine 2021-0 Yes [id number] 15mg Take 1 Univers (REMERON) 6-03 tablet by ity o f 15 mg 00:00: mouth at [place] tablet 00 bedtime. Medical Branch traZODone 2021-0 Yes [id number] 50mg Take 1 Un [place] 50 mg 6-03 tablet by ity of tablet 00:00: mouth at [place] [address] bedtime. Medical Branch mirtazapine 2-0 Yes [id number] 15mg Take 1 Univers (REMERON) 6-03 tablet by ity o f 15 mg 00:00: mouth at [place] [address] bedtime. Medical Branch traZODone 2-0 Yes [id number] 50mg Take 1 Un kecia 50 mg 6-03 tablet by ity of tablet 00:00: mouth at [place] [address] bedtime. Medical Branch amoxicillin 2-0 Yes 500mg Take 500 U nivers 500 mg 5-24 mg by ity of capsule 00:00: mouth. [place] [address] Medical Branch amoxicillin 2-0 Yes 500mg Take 500 U nivers 500 mg 5-24 mg by ity of capsule 00:00: mouth. [place] [address] Medical Branch amoxicillin 2-0 Yes 500mg Take 500 U nivers 500 mg 5-24 mg by ity of capsule 00:00: mouth. [place] [address] Medical Branch amoxicillin 2-0 Yes 500mg Take 500 U nivers 500 mg 5-24 mg by ity of capsule 00:00: mouth. [place] [address] Medical Branch amoxicillin 2-0 Yes 500mg Take 500 U nivers 500 mg 5-24 mg by ity of capsule 00:00: mouth. [place] [address] Medical Branch amoxicillin 2-0 Yes 500mg Take 500 U nivers 500 mg 5-24 mg by ity of capsule 00:00: mouth. [place] [address] Medical Branch amoxicillin 2-0 Yes 500mg Take 500 U nivers 500 mg 5-24 mg by ity of capsule 00:00: mouth. [place] [address] Medical Branch amoxicillin 2-0 Yes 500mg Take 500 U nivers 500 mg 5-24 mg by ity of capsule 00:00: mouth. [place] [address] Medical Branch hydrALAZINE 2-0 Yes 50mg Take 50 mg Univers 50 mg 4-08 by mouth. ity of tablet 00:00: [place] [address] Medical Branch hydrALAZINE 2-0 Yes 50mg Take 50 mg Univers 50 mg 4-08 by mouth. ity of tablet 00:00: [place] [address] Medical Branch hydrALAZINE 2-0 Yes 50mg Take 50 mg Univers 50 mg 4-08 by mouth. ity of tablet 00:00: [place] [address] Medical Branch hydrALAZINE 2-0 Yes 50mg Take 50 mg Univers 50 mg 4-08 by mouth. ity of tablet 00:00: 00 Medical Branch hydrALAZINE 0 Yes 50mg Take 50 mg Univers 50 mg 4-08 by mouth. ity of tablet 00:00: Medical Branch hydrALAZINE 2021-0 Yes 50mg Take 50 mg Univers 50 mg 4-08 by mouth. ity of tablet 00:00: Medical Branch hydrALAZINE 0 Yes 50mg Take 50 mg Univers 50 mg 4-08 by mouth. ity of tablet 00:00: Medical Branch hydrALAZINE 0 Yes 50mg Take 50 mg Univers 50 mg 4-08 by mouth. ity of tablet 00:00: Medical Branch aspirin 81 2021-2021- No [id number] 81mg Take 1 Univers mg chewable 4-08 07-08 tablet by it y of tablet 00:00: 04:59 mouth [place] 00 :00 daily for Medical 90 days. Branch clopidogreL 2021-2021- No [id number] 75mg Take 1 Univers 75 mg 4-11 07- tablet by ity of tablet 00:00: 00:00 mouth [place] 00 :00 daily. Medical Branch levETIRAcet 2021- No 250mg Take [...] tablet 35 daily. Center sucroferric Yes 500mg Q.[id number] Take [address] oxyhydroxid 4-02 [id number] mg by L ukes e 500 mg 14:35: 3D mouth 3 Medica l Chew 35 (three) Center times daily. multivitami Yes 1{tbl} QD Take [address] [facility] with 4-02 tablet by [facility] minerals 14:35: mouth Medical tablet 35 daily. Center sucroferric Yes 500mg Q.[id number] Take [address] oxyhydroxid 4-02 [id number] mg by L ukes e 500 mg 14:35: 3D mouth 3 Medica l Chew 35 (three) Center times daily. multivitami Yes 1{tbl} QD Take [address] n with 4-02 tablet by [facility] minerals 14:35: mouth Medical tablet 35 daily. Center sucroferric Yes 500mg Q.[id number] Take [address] oxyhydroxid 4-02 [id number] mg by L ukes e 500 mg 14:35: 3D mouth 3 Medica l Chew 35 (three) Center times daily. multivitami Yes 1{tbl} QD Take [address] n with 4-02 tablet by [facility] minerals 14:35: mouth Medical tablet 35 daily. Center sucroferric Yes 500mg Q.[id number] Take [address] oxyhydroxid 4-02 [id number] mg by L ukes e 500 mg 14:35: 3D mouth 3 Medica l Chew 35 (three) Center times daily. multivitami Yes 1{tbl} QD Take [address] n with 4-02 tablet by [facility] minerals 14:35: mouth Medical tablet 35 daily. Center sucroferric Yes 500mg Q.[id number] Take [address] oxyhydroxid 4-02 [id number] mg by L ukes e 500 mg 14:35: 3D mouth 3 Medica l Chew 35 (three) Center times daily. multivitami Yes 1{tbl} QD Take [address] n with 4-02 tablet by [facility] minerals 14:35: mouth Medical tablet 35 daily. Center sucroferric Yes 500mg Q.[id number] Take [address] oxyhydroxid 4-02 [id number] mg by L ukes e 500 mg 14:35: 3D mouth 3 Medica l Chew 35 (three) Center times daily. multivitami Yes 1{tbl} QD Take [address] n with 4-02 tablet by [facility] minerals 14:35: mouth Medical tablet 35 daily. Center sucroferric Yes 500mg Q.[id number] Take [address] oxyhydroxid 4-02 [id number] mg by L ukes e 500 mg 14:35: 3D mouth 3 Medica l Chew 35 (three) Center times daily. aspirin 81 No 81mg QD Take [address] MG EC 07-04 by mouth [facility]ukes tablet 11:07: 00:00 daily. Medical 35 :00 [place] carvediloL No 12.5mg Take 12.[address] (COREG) 07-0402 mg by [facility] 12.5 MG 11:07: 00:00 mouth 2 Medica l tablet 35 :00 (two) Center times daily with breakfast and dinner. atorvastati No 40mg QD Take [address] [facility] n (LIPITOR) 07-04 by mouth Ned es 40 MG 11:07: 00:00 daily. Medical tablet 35 :00 [place] isosorbide 30mg QD Take [address] mononitrate 07-04 by mouth Ned es (IMDUR) 30 11:07: 00:00 daily. Medi yoel MG 24 hr 35 :00 Center tablet clopidogreL 75mg QD Take [address] (PLAVIX) 75 07-04 by mouth Ned es mg tablet 11:07: 00:00 daily. Medic al 35 :00 [place] NIFEdipine 60mg QD Take [address] (PROCARDIA- 07-04 by mouth Ned es XL) 60 MG 11:07: 00:00 daily. Medic al (OSM) 24 hr 35 :00 Center tablet hydrALAZINE 50mg Q.[id number] Take [address] (APRESOLINE 07-04 [id number] by mouth 3 [facility] ) 50 MG [...] tablet 11:07: 00:00 daily. Medical 35 :00 [place] carvediloL 2021- No 12.5mg Take 12.[address] (COREG) 4- 04-02 mg by [facility]ukes 12.5 MG 11:07: 00:00 mouth 2 Medica l tablet 35 :00 (two) Center times daily with breakfast and dinner. atorvastati 2021- No 40mg QD Take [address] n (LIPITOR) 07-04 by mouth Ned es 40 MG 11:07: 00:00 daily. Medical tablet 35 :00 [place] isosorbide No 30mg QD Take [address] mononitrate 07-04 by mouth Ned es (IMDUR) 30 11:07: 00:00 daily. Medi yoel MG 24 hr 35 :00 Center tablet clopidogreL No 75mg QD Take [address] [address] (PLAVIX) 75 07-04 by mouth Ned es mg tablet 11:07: 00:00 daily. Medic al 35 :00 [place] NIFEdipine No 60mg QD Take [address] [address] (PROCARDIA- 07-04 by mouth Ned es XL) 60 MG 11:07: 00:00 daily. Medic al (OSM) 24 hr 35 :00 Center tablet hydrALAZINE No 50mg Q.[id number] Take [address] (APRESOLINE 07-04 [id number] by mouth 3 [facility] ) 50 MG 11:07: 00:00 3D (three) Medica l tablet 35 :00 times Center daily. lisinopriL No 5mg QD Take [address] (PRINIVIL,Z 07-04 by mouth Ned es ESTRIL) 5 11:07: 00:00 daily. Medic al MG tablet 35 :00 [place] aspirin 81 2021- No 81mg QD Take [address] MG EC 07-04 by mouth [facility]ukes tablet 11:07: 00:00 daily. Medical 35 :00 [place] carvediloL 2021- No 12.5mg Take 12.5 [facility] [...] :00 Center tablet hydrALAZINE 2021- No 50mg Q.[id number] Take [address] (APRESOLINE 07-04 [id number] by mouth 3 [facility] ) 50 MG [...] hr 35 :00 Center tablet hydrALAZINE 50mg Q.[id number] Take [address] (APRESOLINE 07-04 [id number] [facility] ) 50 MG 11:07: 00:00 3D (three) Medica l tablet 35 :00 times Center daily. lisinopriL 5mg QD Take [address] [facility] (PRINIVIL,Z 07-04 by mouth [place] ESTRIL) 5 11:07: 00:00 daily. Medic al MG tablet 35 :00 [place] aspirin 81 No 81mg QD Take [address] [facility] MG EC 07-04 by mouth [facility] tablet 11:07: 00:00 daily. Medical 35 :00 [place] carvediloL 2021- No 12.5mg Take 12.[address] [facility] (COREG) 07-04-02 mg by [facility] 12.5 MG 11:07: 00:00 mouth 2 Medica l tablet 35 :00 (two) Center times daily with breakfast and dinner. atorvastati 2021- No 40mg QD Take [address] [facility] n (LIPITOR) 07-04 by mouth Ned es 40 MG 11:07: 00:00 daily. Medical tablet 35 :00 [place] isosorbide 2021- No 30mg QD Take [address] [facility] mononitrate 07-04 by mouth Ned es (IMDUR) 30 11:07: 00:00 daily. Medi yoel MG 24 hr 35 :00 Center tablet clopidogreL 2021- No 75mg QD Take [address] [facility] (PLAVIX) 75 07-04 by mouth Ned es mg tablet 11:07: 00:00 daily. Medic al 35 :00 [place] NIFEdipine 2021- No 60mg QD Take [address] [facility] (PROCARDIA- 07-04 by mouth Ned es XL) 60 MG 11:07: 00:00 daily. Medic al (OSM) 24 hr 35 :00 Center tablet hydrALAZINE No 50mg Q.[id number] Take [address] [facility] (APRESOLINE 07-04 [id number] by mouth 3 [facility] ) 50 MG 11:07: 00:00 3D (three) Medica l tablet 35 :00 times Center daily. lisinopriL No 5mg QD Take [address] (PRINIVIL,Z 07-04 by mouth [place] es ESTRIL) 5 11:07: 00:00 daily. Medic al MG tablet 35 :00 [place] aspirin 81 2021- No 81mg QD Take [address] [facility] MG EC 07-04 by mouth [facility] tablet 11:07: 00:00 daily. Medical 35 :00 [place] carvediloL No 12.5mg Take 12.[address] [facility] (COREG) 07-0402 mg by [facility] 12.5 MG 11:07: 00:00 mouth 2 Medica l tablet 35 :00 (two) Center times daily with breakfast and dinner. atorvastati 2021- No 40mg QD Take [address] [facility] (LIPITOR) 07-04 by mouth Ned es 40 MG 11:07: 00:00 daily. Medical tablet 35 :00 [place] isosorbide 2021- No 30mg QD Take 30 [...] 35 :00 Center tablet hydrALAZINE No 50mg Q.[id number] Take [address] [facility] (APRESOLINE 07-04 [id number] by mouth 3 [facility] ) 50 MG [...] tablet 11:07: 00:00 daily. Medical 35 :00 [place] carvediloL No 12.5mg Take 12.[address] [facility] [...] Take [address] [facility] (PLAVIX) 75 4-02 04-02 by mouth Ned es mg tablet 11:07: 00:00 daily. Medic al 35 :00 Center NIFEdipine 2021- No 60mg QD Take [address] [facility] (PROCARDIA- 07-04 by mouth Ned es XL) 60 MG 11:07: 00:00 daily. Medic al (OSM) 24 hr 35 :00 Center tablet hydrALAZINE 2021- No 50mg Q.[id number] Take [address] [facility] (APRESOLINE 07-04 [id number] by mouth 3 [facility] ) 50 MG 11:07: 00:00 3D (three) Medica l tablet 35 :00 times Center daily. lisinopriL 2021- No 5mg QD Take [address] (PRINIVIL,Z 07-04 by mouth Ned es ESTRIL) 5 11:07: 00:00 daily. Medic al MG tablet 35 :00 Center cefTRIAXone 2021-0 Yes 2g QD Inject 2 [...] % (NS) 100 mL (V2B) IVPB cefTRIAXone 2022-0 Yes 2g QD Inject [address] [facility] (ROCEPHIN) 4-02 intravenou Ned es 2 g in 00:00: sly daily. Medic al sodium 00 Center chloride 0.9 % (NS) 100 mL (V2B) IVPB cefTRIAXone 2021-0 Yes 2g QD Inject [address] [facility] (ROCEPHIN) -02 intravenou Ned es 2 g in 00:00: sly daily. Medic al sodium 00 Center chloride 0.9 % (NS) 100 mL (V2B) IVPB cefTRIAXone 2021-0 Yes 2g QD Inject [address] [facility] (ROCEPHIN) 02 intravenou Ned es 2 g in 00:00: [...] injection (three) times a week at bedtime TUE/ALEXANDRA/ T for 60 days. levETIRAcet 2021- No 500mg QD Take [address] [facility] (KEPPRA) 07-04 tablet [facility] 500 MG 00:00: 23:59 (500 mg Medical tablet 00 :00 total) by Center mouth nightly for 60 days. insulin 2021- No Use as [facility] regular 4-05 08- directed. [facility] (HumuLIN 00:00: 00:00 Medical R,NovoLIN 00 :00 Center R) 100 unit/mL injection insulin 2021- No Use as [facility] regular 4-05 08- directed. [facility] (HumuLIN 00:00: 00:00 Medical R,NovoLIN 00 :00 Center R) 100 unit/mL injection insulin 2021- No Use as [facility] regular -05 08- directed. [facility] (HumuLIN 00:00: 00:00 Medical R,NovoLIN 00 :00 Center R) 100 unit/mL injection insulin 2021- No Use as [facility] regular 4-05 08- directed. [facility] (HumuLIN 00:00: 00:00 Medical R,NovoLIN 00 :00 Center R) 100 unit/mL injection insulin 2021- No Use as [facility] regular 4-05 08- directed. [facility] (HumuLIN 00:00: 00:00 Medical R,NovoLIN 00 :00 Center R) 100 unit/mL injection insulin 2021- No Use as [facility] regular 4-05 08- directed. [facility] (HumuLIN 00:00: 00:00 Medical R,NovoLIN 00 :00 Center R) 100 unit/mL injection insulin 2021- No Use as [facility] regular 4-05 08- directed. [facility] (HumuLIN 00:00: 00:00 Medical R,NovoLIN 00 :00 Center R) 100 unit/mL injection insulin 2021- No Use as [facility] regular 4-05 08- directed. [facility] (HumuLIN 00:00: 00:00 Medical [...] Take [address] mononitrate - by mouth Luke [facility] (IMDUR) 30 13:18: [...] hr 59 Center tablet hydrALAZINE Yes 50mg Q.[id number] Take [address] [facility] (APRESOLINE 4-01 [id number] by mouth 3 [facility] ) 50 MG 13:18: 3D (three) Medical tablet 59 times Center daily. multivitami 0 Yes 1{tbl} QD Take [address] [facility] with 4- tablet by [facility] minerals 13:18: mouth Medical tablet 59 daily. [place] lisinopriL Yes 5mg QD Take [address] [facility] [address] [facility] (PRINIVIL,Z 4-01 by mouth Luke s ESTRIL) 5 13:18: daily. Medica l MG tablet 59 Center sucroferric Yes 500mg Q.[id number] Take [address] oxyhydroxid 4- [id number] mg by L ukes e 500 mg [...] hr 15 Center tablet hydrALAZINE Yes 50mg Q.[id number] Take [address] [facility] (APRESOLINE 3-30 [id number] by mouth [facility] ) 50 MG [...] tablet 15 Center sucroferric 0 Yes 500mg Q.[id number] Take [address] oxyhydroxid 3-30 [id number] mg by L ukes e 500 mg [...] hr 15 Center tablet hydrALAZINE Yes 50mg Q.[id number] Take [address] [facility] (APRESOLINE 3-30 [id number] by mouth 3 [facility] ) 50 MG 12:54: 3D (three) Medical tablet 15 times Center daily. multivitami 0 Yes 1{tbl} QD Take [address] [facility] with 3-30 tablet by [facility] minerals 12:54: mouth Medical tablet 15 daily. [place] lisinopriL 0 Yes 5mg QD Take [address] [facility] [address] [facility] (PRINIVIL,Z 3-30 by mouth Luke s ESTRIL) 5 12:54: daily. Medica l MG tablet 15 Center sucroferric 0 Yes 500mg Q.[id number] Take [address] oxyhydroxid 3-30 [id number] mg by L ukes e 500 mg 12:54: 3D mouth 3 Medica l Chew 15 (three) Center times daily. atorvastati 2022-0 Yes 40mg QD Take [address] [facility] (LIPITOR) 3-30 by mouth Luke s 40 MG 08:40: daily. Medical tablet 18 [place] isosorbide 0 Yes 30mg QD Take [address] mononitrate 3-30 by mouth Luke s (IMDUR) 30 08:40: daily. Medic al MG 24 hr 18 Center tablet clopidogreL 2021-0 Yes 75mg QD Take [address] [facility] (PLAVIX) 75 3-30 by mouth Luke s mg tablet 08:40: daily. Medica l 18 [place] NIFEdipine 2021-0 Yes 60mg QD Take [address] (PROCARDIA- 3-30 by mouth Luke s XL) 60 MG 08:40: daily. Medica l (OSM) 24 hr 18 Center tablet hydrALAZINE 0 Yes 50mg Q.[id number] Take [address] [facility] (APRESOLINE 3-30 [id number] by mouth 3 [facility] ) 50 MG 08:40: 3D (three) Medical tablet 18 times Center daily. multivitami 0 Yes 1{tbl} QD Take [address] [facility] with 3-30 tablet by [facility] minerals 08:40: mouth Medical tablet 18 daily. [place] lisinopriL 0 Yes 5mg QD Take [address] [facility] [address] [facility] (PRINIVIL,Z 3-30 by mouth Luke s ESTRIL) 5 08:40: daily. Medica l MG tablet 18 [place] sucroferric 0 Yes 500mg Q.63114600 Take [address] oxyhydroxid 3-30 [id number] mg by L ukes e 500 mg 08:40: 3D mouth 3 Medica l Chew 18 (three) Center times daily. atorvastati 0 Yes 40mg QD Take [address] [facility] (LIPITOR) 3-28 by mouth Luke s 40 MG 14:25: daily. Medical tablet 01 [place] isosorbide 0 Yes 30mg QD Take 30 [...] 24 hr Center tablet hydrALAZINE Yes 50mg Q.[id number] Take [address] [facility] (APRESOLINE 3-28 [id number] by mouth 3 [facility] ) 50 MG [...] MG tablet 01 Center sucroferric Yes 500mg Q.[id number] Take [address] oxyhydroxid 3-28 [id number] mg by L ukes e 500 mg [...] hr 22 Center tablet hydrALAZINE Yes 50mg Q.[id number] Take [address] [facility] (APRESOLINE 3-28 [id number] by mouth 3 [facility] ) 50 MG 09:34: 3D (three) Medical tablet 22 times Center daily. multivitami 2022-0 Yes 1{tbl} QD Take [address] [facility] with 3-28 tablet by [facility] minerals 09:34: mouth Medical tablet 22 daily. [place] lisinopriL 0 Yes 5mg QD Take [address] [facility] [address] [facility] (PRINIVIL,Z 3-28 by mouth Luke s ESTRIL) 5 09:34: daily. Medica l MG tablet 22 Center sucroferric Yes 500mg Q.[id number] Take [address] oxyhydroxid 3-28 [id number] mg by L ukes e 500 mg [...] 49 Center tablet hydrALAZINE 0 Yes 50mg Q.[id number] Take [address] [facility] (APRESOLINE 3-25 [id number] by mouth 3 [facility] ) 50 MG 20:31: 3D (three) Medical tablet 49 times Center daily. multivitami 0 Yes 1{tbl} QD Take [address] [facility] with 3-25 tablet by [facility] minerals 20:31: mouth Medical tablet 49 daily. [place] lisinopriL 0 Yes 5mg QD Take [address] [facility] [address] [facility] (PRINIVIL,Z 3-25 by mouth Luke s ESTRIL) 5 20:31: daily. Medica l MG tablet 49 Center sucroferric 0 Yes 500mg Q.[id number] Take [address] oxyhydroxid 3-25 [id number] mg by L ukes e 500 mg [...] 15 Center tablet hydrALAZINE 0 Yes 50mg Q.[id number] Take [address] [facility] (APRESOLINE 3-20 [id number] by mouth 3 [facility] ) 50 MG [...] tablet 15 Center sucroferric 0 Yes 500mg Q.[id number] Take [address] oxyhydroxid 3-20 [id number] mg by L ukes e 500 mg [...] 18:09: daily. Medica l 15 Center NIFEdipine Yes 60mg QD Take [address] (PROCARDIA- 3-20 by mouth Luke s XL) 60 MG 18:09: daily. Medica l (OSM) 24 hr 15 Center tablet hydrALAZINE 0 Yes 50mg Q.[id number] Take [address] [facility] (APRESOLINE 3-20 [id number] by mouth 3 [facility] ) 50 MG 18:09: 3D (three) Medical tablet 15 times Center daily. multivitami Yes 1{tbl} QD Take [address] [facility] with 3-20 tablet by [facility] minerals 18:09: mouth Medical tablet 15 daily. [place] lisinopriL Yes 5mg QD Take [address] [facility] [address] [facility] (PRINIVIL,Z 3-20 by mouth Luke s ESTRIL) 5 18:09: daily. Medica l MG tablet 15 [place] sucroferric Yes 500mg Q.[id number] Take [address] oxyhydroxid 3-20 [id number] mg by L ukes e 500 mg [...] 3-07 by mouth [facility] tablet 04:45: daily. [address] carvediloL Yes 12.5mg Take 12.[address] [facility] (COREG) 3-07 mg by [facility] 12.5 MG 04:45: mouth 2 Medical tablet 04 (two) Center times daily with breakfast and dinner. aspirin 81 0 Yes 81mg QD Take [address] MG EC 3-07 by mouth [facility] tablet 04:45: daily. [address] carvediloL 0 Yes 12.5mg Take 12.[address] [facility] (COREG) 3-07 mg by [facility] 12.5 MG 04:45: mouth 2 Medical tablet 04 (two) Center times daily with breakfast and dinner. aspirin 81 2021-0 Yes 81mg QD Take [address] MG EC 3-07 by mouth [facility] tablet 04:45: daily. [address] carvediloL 2021-0 Yes 12.5mg Take 12.[address] [facility] (COREG) 3-07 mg by [facility] 12.5 MG 04:45: mouth 2 Medical tablet 04 (two) Center times daily with breakfast and dinner. aspirin 81 2021-0 Yes 81mg QD Take [address] MG EC 3-07 by mouth [facility] tablet 04:45: daily. [address] carvediloL 2021-0 Yes 12.5mg Take 12.[address] [address] (COREG) 3-07 mg by [facility] 12.5 MG 04:45: mouth 2 Medical tablet 04 (two) Center times daily with breakfast and dinner. aspirin 81 2021-0 Yes 81mg QD Take [address] MG EC 3-07 by mouth [facility] tablet 04:45: daily. [address] carvediloL 0 Yes 12.5mg Take 12.[address] [facility] [address] (COREG) 3-07 mg by [facility] 12.5 MG 04:45: mouth 2 Medical tablet 04 (two) Center times daily with breakfast and dinner. aspirin 81 2021-0 Yes 81mg QD Take [address] MG EC 3-07 by mouth [facility] tablet 04:45: daily. [address] carvediloL 2021-0 Yes 12.5mg Take 12.[address] [facility] [address] (COREG) 3-07 mg by [facility] 12.5 MG 04:45: mouth 2 Medical tablet 04 (two) Center times daily with breakfast and dinner. aspirin 81 2021-0 Yes 81mg QD Take [address] MG EC 3-07 by mouth [facility] tablet 04:45: daily. [address] carvediloL 2021-0 Yes 12.5mg Take 12.[address] [address] (COREG) 3-07 mg by [facility] 12.5 MG 04:45: mouth 2 Medical tablet 04 (two) Center times daily with breakfast and dinner. aspirin 81 2021-0 Yes 81mg QD Take [address] MG EC 3-07 by mouth [facility] tablet 04:45: daily. [address] carvediloL 2021-0 Yes 12.5mg Take 12.5 [...] breakfast and dinner. aspirin 81 2021- No [id number] 81mg Take 1 [facility] mg chewable 05-23 tablet by it y of tablet 00:00: 04:59 mouth [place] 00 :00 daily for Medical 30 days. Branch clopidogreL 2021- No [id number] 75mg Take 1 [facility] 75 mg 05-23 tablet by ity of tablet 00:00: 04:59 mouth [place] 00 :00 daily for Medical 30 days. [place] isosorbide 2021- No [id number] 30mg Take 1 [facility] mononitrate 05-23 tablet by it y of 30 mg 24 hr 00:00: 04:59 mouth [place] tablet 00 :00 daily for Medical 30 days. [place] lisinopriL 2021- No [id number] 5mg Take 1 [facility] 5 mg tablet 05-23 tablet by it y of 00:00: 04:59 mouth [place] 00 :00 daily for Medical 30 days. [place] vitamin b 2021- No [id number] 1{tbl} Take 1 [facility] complex-vit 05-23 tablet by it y of [place] 00:00: 04:59 mouth [place] c-folic 00 :00 daily for Medical acid 0.8 mg 30 days. Bran ch tablet aspirin 81 2021- No [id number] 81mg Take 1 [facility] mg chewable 05-23 tablet by it y of tablet 00:00: 04:59 mouth [place] 00 :00 daily for Medical 30 days. Branch clopidogreL 2021- No [id number] 75mg Take 1 [facility] 75 mg 05-23 tablet by ity of tablet 00:00: 04:59 mouth [place] 00 :00 daily for Medical 30 days. Branch isosorbide 2021- No [id number] 30mg Take 1 [facility] mononitrate 05-23 tablet by it y of 30 mg 24 hr 00:00: 04:59 mouth [place] tablet 00 :00 daily for Medical 30 days. Branch lisinopriL 2021- No [id number] 5mg Take 1 [facility] 5 mg tablet 05-23 tablet by it y of 00:00: 04:59 mouth [place] 00 :00 daily for Medical 30 days. Branch vitamin b 2021- No [id number] 1{tbl} Take 1 [facility] complex-vit 05-23 tablet by it y of [place] 00:00: 04:59 mouth [place] c-folic 00 :00 daily for Medical acid 0.8 mg 30 days. Bran ch tablet aspirin 81 2021- No [id number] 81mg Take 1 [facility] mg chewable 05-23 tablet by it y of tablet 00:00: 04:59 mouth [place] 00 :00 daily for Medical 30 days. Branch clopidogreL 2021- No [id number] 75mg Take 1 [facility] 75 mg 05-23 tablet by ity of tablet 00:00: 04:59 mouth [place] 00 :00 daily for Medical 30 days. Branch isosorbide 2021- No [id number] 30mg Take 1 [facility] mononitrate 05-23 tablet by it y of 30 mg 24 hr 00:00: 04:59 mouth [place] tablet 00 :00 daily for Medical 30 days. Branch lisinopriL 2021- No [id number] 5mg Take 1 [facility] 5 mg tablet 05-23 tablet by it y of 00:00: 04:59 mouth [place] 00 :00 daily for Medical 30 days. Branch vitamin b 2021- No [id number] 1{tbl} Take 1 [facility] complex-vit 05-23 tablet by it y of [place] 00:00: 04:59 mouth [place] c-folic 00 :00 daily for Medical acid 0.8 mg 30 days. Bran ch tablet hydralazine Yes Take by Uni vers HCl 2-18 mouth. ity of (HYDRALAZIN 21:15: [place] E ORAL) 58 Medical Branch sucroferric 2022-0 Yes Take by Uni vers oxyhydroxid 2-18 [...] 81mg Take 81 mg [facility] mg chewable 2-18 18 by mouth ity of tablet 17:12: 00:00 daily. [place] 42 :00 Medical Branch nitroglycer [id number] 1 [facility] in 0.4 mg 2-18 tablet ity of sublingual 00:00: under the [place] tablet 00 tongue Medical every 5 Branch (five) minutes as needed for Chest pain. nitroglycer Yes [id number] .4mg Place 1 [facility] in 0.4 mg 2-18 tablet ity of sublingual 00:00: under the [place] tablet 00 tongue Medical every 5 Branch (five) minutes as needed for Chest pain. nitroglycer [id number] 1 [facility] in 0.4 mg 2-18 tablet ity of sublingual 00:00: under the [place] tablet 00 tongue Medical every 5 Branch (five) minutes as needed for Chest pain. atorvastati 2021- No [id number] 40mg Take 1 [facility] n 40 mg 2-18 06-22 tablet by ity of tablet 00:00: 04:59 mouth at [place] 00 :00 bedtime Medical for 30 Branch days. carvediloL 2021- No [id number] 6.25mg Take 1 [facility] 6.25 mg 2-18 -21 tablet by ity of tablet 00:00: 04:59 mouth 2 [place] 00 :00 ([facility]) Medical times Branch daily with meals for 30 days. NIFEdipine 2021- No [id number] 60mg Take 1 [facility] ER 60 mg 2-18 -21 tablet by ity o f tablet 00:00: 04:59 mouth 2 [place] 00 :00 ([facility]) Medical times Branch daily for 30 days. atorvastati 2021- No [id number] 40mg Take 1 [facility] n 40 mg 2-18 -21 tablet by ity of tablet 00:00: 04:59 mouth at [place] 00 :00 bedtime Medical for 30 Branch days. carvediloL 2021- No [id number] 6.25mg Take 1 [facility] 6.25 mg 2-18 -21 tablet by ity of tablet 00:00: 04:59 mouth 2 [place] 00 :00 ([facility]) Medical times Branch daily with meals for 30 days. NIFEdipine 2021- No [id number] 60mg Take 1 Univers ER 60 mg 2-18 -21 tablet by ity o f tablet 00:00: 04:59 mouth 2 [place] 00 :00 ([facility]) Medical times Branch daily for 30 days. atorvastati 2021- No [id number] 40mg Take 1 [facility] n 40 mg 2-18 -21 tablet by ity of tablet 00:00: 04:59 [facility] [place] [facility] Branch [facility] carvediloL 2021- No [id number] 6.25mg Take 1 [facility] 6.25 mg 2-18 -21 tablet by ity of tablet 00:00: 04:59 mouth 2 [place] 00 :00 ([facility]) Medical times Branch daily with meals for 30 days. NIFEdipine 2021- No [id number] 60mg Take 1 Univers ER 60 mg 2-18 -21 tablet by ity o f tablet 00:00: 04:59 mouth 2 [place] 00 :00 ([facility]) Medical times Branch daily for 30 days. clopidogreL Yes 75mg 75 mg, Univ ers (PLAVIX) 2-17 Oral, ity of tablet 75 15:00: DAILY, [place] mg 00 First dose Medical (after Branch last modificati on) on [facility] 05/21/21 at 0900, Until Discontinu ed, Routine morpHINE No 2mg 2 mg, Slow Un kecia injection 2 05-21 IV Push, ity of mg 13:30: 12:29 ONCE, 1 [place] 00 :00 dose, On Medical [facility] Branch 05/21/21 at 0730, Routine HYDROcodone 2021- No 1{tbl} 1 tablet, Univers -acetaminop 05-21 Oral, ity of hen (NORCO 01:00: 00:17 ONCE, 1 [place] as 5) 5-325 mg 00 :00 dose, On Medi yoel tablet 1 Tue [place] tablet 05/20/21 at 1900, Routine isosorbide Yes 30mg 30 mg, Unive rs mononitrate 2-16 Oral, ity of (IMDUR) 24 15:00: DAILY, [place] hr tablet 00 First dose Medi yoel 30 mg on Tue Branch 05/20/21 at 0900, Until Discontinu ed, Routine vitamin b Yes [id number] 1{tbl} 1 tablet, Univers complex-vit 16 Oral, ity of miller 15:00: DAILY, [place] c-folic 00 First dose Medica l acid on Tue [place] (NEPHRO-VIT 05/20/21 at E) 0.8 mg 0900, tablet 1 Until tablet Discontinu ed, Routine clopidogreL 2021- No 75mg 75 mg, Uni vers (PLAVIX) 05-20 Oral, ity of tablet 75 15:00: 15:04 DAILY, [place] mg 00 :38 First dose Medical on [facility] Branch 05/20/21 at 0900, Until Discontinu ed, Routine atorvastati Yes [id number] 40mg 40 mg, Univers n (LIPITOR) 2-16 Oral, QHS, it y of tablet 40 03:00: First dose [place] mg 00 on [facility] 05/19/21 at Branch 2100, Until Discontinu ed, Routine NIFEdipine 0 Yes [id number] 60mg 60 mg, U nivers ER tablet 2-16 Oral, BID, ity of 60 mg 02:00: First dose [place] 00 (after Medical last Branch modificati on) on Tue05/19/21 at 2000, Until Discontinu ed, Routine lisinopriL Yes [id number] 5mg 5 mg, Un kecia (PRINIVIL,Z 2-15 Oral, ity of ESTRIL) 20:45: DAILY, [place] tablet 5 mg 00 First dose Me dical on Branch 05/19/21 at 1445, Until Discontinu ed, Routine traMADoL Yes 50mg 50 mg, Univers (ULTRAM) 2-12 Oral, ity of tablet 50 21:59: Q6HPRN, [place] mg 37 Starting Medical on [facility] Branch 05/16/21 at 1559, Until Discontinu ed, Routine, Pain (scale 4-6) aspirin Yes 81mg 81 mg, Univers chewable 2-12 Oral, ity of tablet 81 15:00: DAILY, [place] mg 00 First dose Medical on [facility] Branch 05/16/21 at 0900, Until Discontinu ed, Routine NIFEdipine No 60mg 60 mg, Univ ers ER tablet 05-16 02-15 Oral, ity of 60 mg 15:00: 20:33 DAILY, [place] 00 :49 First dose Medical on [facility] 05/16/21 at 0900, Until Discontinu ed, Routine Sliding 0 Yes Subcutaneo Univ ers Scale 2-12 us, AC, ity of Insulin-Reg 13:30: First dose [place] ular + Fsbg 00 on [facility] Medica l Testing 05/16/21 at Branch [...] swallow or has mental status changes. heparin Yes 5000U 5,000 Univers (porcine) 2-12 Units, [...] 05/15/21 at 1900, Until Discontinu ed, Routine
philosophy faculty member approving Restricted medication : NEIL THOMAS aspirin 0 No 325mg 325 mg, Unive rs tablet 325 12 02-12 Oral, ity of mg 01:00: 01:57 ONCE, 1 [place] 00 :00 dose, On Medical Fri Branch [...] 05/15/21 at 1730, STAT iopamidol 2021- No [id number] 100mL 100 mL, Univers (ISOVUE 05-15 Intravenou ity o f 370-500 mL) 22:00: 22:00 s, ONCE, 1 injection 00 :00 dose, On Medica l 100 mL Fri Branch 05/15/21 at 1600, Routine aspirin 81 Yes 81mg QD Take [address] MG EC 5-27 by mouth [facility] tablet 15:07: daily. [address] carvediloL Yes 12.5mg Take 12.[address] [facility] (COREG) 5-27 mg by [facility] 12.5 MG 15:07: mouth 2 Medical tablet 20 (two) Center times daily with breakfast and dinner. aspirin 81 Yes 81mg QD Take [address] MG EC 5-27 by mouth [facility] tablet 15:07: daily. [address] carvediloL Yes 12.5mg Take 12.5 [facility] [...] a e 1-17 l 19:15: ergocalcife Yes [id number] Q7D Take Meth ale rol 7-25 50,000 [...] 24 hr 42 l tablet ergocalcife Yes [id number] Q7D Take Meth ale rol 7-25 50,000 st (VITAMIN 15:19: Units by Hospi ta D2) 50,000 42 mouth once l unit a week. capsule multivitami 2019-0 Yes 1{tbl} QD Take 1 Me thodi n 7-[address] (DAILY-LAORN 15:19: mouth Hospi ta ORAL) 42 daily. [...] hr 42 l tablet ergocalcife 2019-0 Yes [id number] Q7D Take Meth ale rol 7-25 50,000 [...] hr 42 l tablet ergocalcife 2019-0 Yes [id number] Q7D Take Meth ale rol 7-25 50,000 [...] hr 42 l tablet ergocalcife 2019-0 Yes [id number] Q7D Take Meth ale rol 7-25 50,000 st (VITAMIN 15:19: Units by Hospi ta D2) 50,000 42 mouth once l unit a week. capsule multivitami 2019-0 Yes 1{tbl} QD Take 1 Me thodi n 7-[address] (DAILY-LARON 15:19: mouth Hospi ta ORAL) 42 daily. l ergocalcife 2019-0 Yes [id number] Q7D Take Meth ale rol 7-25 50,000 [...] Hospita tablet 42 l ergocalcife 20190 Yes [id number] Q7D Take Meth ale rol 7-25 50,000 [...] hr 42 l tablet ergocalcife 2019-0 Yes [id number] Q7D Take Meth ale rol 7-25 50,000 [...] hr 42 l tablet ergocalcife 2019-0 Yes [id number] Q7D Take Meth ale rol 7-25 50,000 [...] hr 42 l tablet ergocalcife 2019-0 Yes [id number] Q7D Take Meth ale rol 7-25 50,000 [...] hr 42 l tablet ergocalcife 2019-0 Yes [id number] Q7D Take Meth ale rol 7-25 50,000 [...] hr 42 l tablet ergocalcife 2019-0 Yes [id number] Q7D Take Meth ale rol 7-25 50,000 [...] hr 42 l tablet ergocalcife 2019-0 Yes [id number] Q7D Take Meth ale rol 7-25 50,000 [...] hr 42 l tablet ergocalcife 2019-0 Yes [id number] Q7D Take Meth ale rol 7-25 50,000 [...] hr 42 l tablet ergocalcife 2019-0 Yes [id number] Q7D Take Meth ale rol 7-25 50,000 [...] hr 42 l tablet ergocalcife 2019-0 Yes [id number] Q7D Take Meth ale rol 7-25 50,000 st (VITAMIN 15:19: Units by Hospi ta D2) 50,000 42 mouth once l unit a week. capsule ergocalcife 2019-0 Yes [id number] Q7D Take Meth ale rol 7-25 50,000 [...] hr 42 l tablet ergocalcife 2019-0 Yes [id number] Q7D Take Meth ale rol 7-25 50,000 [...] hr 42 l tablet ergocalcife 2019-0 Yes [id number] Q7D Take Meth ale rol 7-25 50,000 [...] hr 42 l tablet ergocalcife 2019-0 Yes [id number] Q7D Take Meth ale rol 7-25 50,000 [...] Memori a n Calcium 7-09 l 10:23: [place] 00 Lisinopril 2019-0 Yes Memoria 7-09 l 10:23: Doxazosin 2019-0 Yes TWICE [facility] 7-09 DAILY l 00:00: Folic 2019-0 Yes DAILY [facility] Acid/Vit B 7-09 l Complex And 00:00: Freddy n C 00 Hydralazine 2019-0 Yes Q8H Memori a Hcl [...] Yes 1{tbl} Take 1 Me thodi (APRESOLINE 7- tablet by st ) 100 MG 00:00: mouth. Hospita tablet 00 l lactulose 2018-0 Yes Take by Metho di (CEPHULAC) 709 [...] Dose 2021-02-02 Completed Unive rsity of 00:00:00 [facility] [place] [facility] Influenza High Dose 2021-02-02 Completed Unive rsity of 00:00:00 [facility] [place] [facility] Influenza High Dose 2021-02-02 Completed Unive rsity of 00:00:00 [facility] [place] [facility] Influenza High Dose 2021-02-02 Completed Unive rsity of 00:00:00 [facility] [place] [facility] Influenza High Dose 2021-02-02 Completed Unive rsity of 00:00:00 [facility] [place] [facility] Influenza High Dose 2021-02-02 Completed Unive rsity of 00:00:00 [facility] [place] [facility] Influenza High Dose 2021-02-02 Completed Unive rsity of 00:00:00 [facility] [place] [facility] Influenza High Dose 2021-02-02 Completed Unive rsity of 00:00:00 [facility] [place] [facility] SARS-COV-2 COVID-19 2020-07-30 Completed Unive rsity of PFIZER VACCINE 00:00:00 [facility] SARS-COV-2 COVID-19 2020-07-30 Completed Unive rsity of PFIZER VACCINE 00:00:00 [facility] SARS-COV-2 COVID-19 2020-07-30 Completed Unive rsity of PFIZER VACCINE 00:00:00 [facility] SARS-COV-2 COVID-19 2020-07-30 Completed Unive rsity of PFIZER VACCINE 00:00:00 [facility] SARS-COV-2 COVID-19 2020-07-30 Completed Unive rsity of PFIZER VACCINE 00:00:00 [facility] SARS-COV-2 COVID-19 2020-07-30 Completed Unive rsity of PFIZER VACCINE 00:00:00 [facility] SARS-COV-2 COVID-19 2020-07-30 Completed Unive rsity of PFIZER VACCINE 00:00:00 [facility] SARS-COV-2 COVID-19 2020-07-30 Completed Unive rsity of PFIZER VACCINE 00:00:00 [facility] SARS-COV-2 COVID-19 2020-07-11 Completed Unive rsity of PFIZER VACCINE 00:00:00 [facility] SARS-COV-2 COVID-19 2020-07-11 Completed Unive rsity of PFIZER VACCINE 00:00:00 [facility] SARS-COV-2 COVID-19 2020-07-11 Completed Unive rsity of PFIZER VACCINE 00:00:00 [facility] SARS-COV-2 COVID-19 2020-07-11 Completed Unive rsity of PFIZER VACCINE 00:00:00 [facility] SARS-COV-2 COVID-19 2020-07-11 Completed Unive rsity of PFIZER VACCINE 00:00:00 [facility] SARS-COV-2 COVID-19 2020-07-11 Completed Unive rsity of PFIZER VACCINE 00:00:00 [facility] SARS-COV-2 COVID-19 2020-07-11 Completed Unive rsity of PFIZER VACCINE 00:00:00 [facility] SARS-COV-2 COVID-19 2020-07-11 Completed Unive rsity of PFIZER VACCINE 00:00:00 [facility] PPD (TB) 2018-03-20 Completed University of 00:00:00 [facility] PPD (TB) 2018-03-20 Completed University of 00:00:00 [facility] PPD (TB) 2018-03-20 Completed University of 00:00:00 [facility] PPD (TB) 2018-03-20 Completed University of 00:00:00 [facility] PPD (TB) 2018-03-20 Completed University of 00:00:00 [facility] PPD (TB) 2018-03-20 Completed University of 00:00:00 [facility] PPD (TB) 2018-03-20 Completed University of 00:00:00 [facility] PPD (TB) 2018-03-20 Completed University of 00:00:00 [facility] Influenza Virus 2018-01-20 Completed Universit y of Vaccine - Whole 00:00:00 [facility] Influenza Virus 2018-01-20 Completed Universit y of Vaccine - Whole 00:00:00 [facility] Influenza Virus 2018-01-20 Completed Universit y of Vaccine - Whole 00:00:00 [facility] Influenza Virus 2018-01-20 Completed Universit y of Vaccine - Whole 00:00:00 [facility] Influenza Virus 2018-01-20 Completed Universit y of Vaccine - Whole 00:00:00 [facility] Influenza Virus 2018-01-20 Completed Universit y of Vaccine - Whole 00:00:00 [facility] Influenza Virus 2018-01-20 Completed Universit y of Vaccine - Whole 00:00:00 [facility] Influenza Virus 2018-01-20 Completed Universit y of Vaccine - Whole 00:00:00 [facility] Pneumococcal 2014-08-02 Completed University o f Polysaccharide, 00:00:00 [facility] PPSV23 (PNEUMOVAX) [place] Pneumococcal 2014-08-02 Completed University o f Polysaccharide, 00:00:00 [facility] PPSV23 (PNEUMOVAX) [place] Pneumococcal 2014-08-02 Completed University o f Polysaccharide, 00:00:00 [facility] PPSV23 (PNEUMOVAX) [place] Pneumococcal 2014-08-02 Completed University o f Polysaccharide, 00:00:00 [facility] PPSV23 (PNEUMOVAX) Branch Pneumococcal 2014-08-02 Completed [place] o f Polysaccharide, 00:00:00 [place] [facility] PPSV23 (PNEUMOVAX) [facility] Pneumococcal 2014-08-02 Completed University o f Polysaccharide, 00:00:00 [place] [facility] PPSV23 (PNEUMOVAX) [facility] Pneumococcal 2014-08-02 Completed [place] o f Polysaccharide, 00:00:00 [place] [facility] PPSV23 (PNEUMOVAX) [facility] Pneumococcal 2014-08-02 Completed [place] o f Polysaccharide, 00:00:00 [place] [facility] PPSV23 (PNEUMOVAX) Branch Vital Signs Vital Name Observation Time Observation Value Comments Source Systolic blood 2021-09-29 20:09:00 139 mm[Hg] Univer sity of pressure [facility] Diastolic blood 2021-09-29 20:09:00 61 mm[Hg] Unive rsity of [facility] Heart rate 2021-09-29 20:09:00 73 /min [facility] Body temperature 2021-09-29 20:09:[address] [facility] Respiratory rate 2021-09-29 20:09:00 16 /min [facility] Body height 2021-09-29 20:09:00 160 cm [facility] Body weight 2021-09-29 20:09:00 61.326 kg [facility] BMI 2021-09-29 20:09:00 23.95 kg/m2 [facility] Oxygen saturation in 2021-09-29 20:09:00 93 /min [facility] Arterial blood by [facility] Pulse oximetry Branch Systolic blood 2021-09-29 20:09:00 139 mm[Hg] Univer sity of [facility] Diastolic blood 2021-09-29 20:09:00 61 mm[Hg] Unive rsity of [facility] Heart rate 2021-09-29 20:09:00 73 /min Universi ty [facility] Body temperature 2021-09-29 20:09:00 36.5 Priya Univ [facility] Respiratory rate 2021-09-29 20:09:00 16 /[facility] 2021-09-29 20:09:00 160 cm [facility] Body weight 2021-09-29 20:09:00 61.326 kg Universi of [facility] BMI 2021-09-29 20:09:00 23.95 kg/m2 [facility] Oxygen saturation in 2021-09-29 20:09:00 93 /min University of Arterial blood by [facility] Pulse oximetry Branch WEIGHT 2021-07-03 13:00:00 60.4 [...] 01:40:00 126 mm[Hg] Univer sity of pressure [facility] Diastolic blood 2021-05-23 01:40:00 46 mm[Hg] Unive rsity of [facility] Heart rate 2021-05-23 01:40:00 62 /min [facility] Body temperature 2021-05-23 01:40:00 35.67 Priya [facility] 2021-05-23 01:40:00 16 /min [facility] weight 2021-05-23 01:40:00 67.3 kg [facility] BMI 2021-05-23 01:40:00 26.28 kg/m2 [facility] Oxygen saturation in 2021-05-22 17:16:00 93 /min [facility] Arterial blood by [facility] Pulse oximetry Branch Body height 2021-05-19 19:34:00 160 cm [facility] Systolic blood 2021-07-04 08:10:00 149 mm[Hg] [facility] Diastolic blood 2021-07-04 08:10:00 65 mm[Hg] [facility] Heart rate 2021-07-04 08:10:00 71 /min [facility] Body temperature 2021-07-04 08:10:00 36.22 Priya [facility] Respiratory rate 2021-07-04 08:10:00 18 /min [facility] Oxygen saturation in 2021-07-04 08:10:00 93 /min [facility] Arterial blood by Medical Ce nter Pulse oximetry Systolic blood 2021-07-03 14:23:00 123 mm[Hg] [facility] Diastolic blood 2021-07-03 14:23:00 60 mm[Hg] [facility] Heart rate 2021-07-03 14:23:00 70 /min [facility] Body temperature 2021-07-03 14:23:00 35.94 Priya [facility] Respiratory rate 2021-07-03 14:23:00 18 /min [facility] Oxygen saturation in 2021-07-03 14:23:00 97 /min [facility] Arterial blood by Medical Ce [facility]ter Pulse oximetry Body weight 2021-07-03 13:00:00 60.4 kg [facility] BMI 2021-07-03 13:00:00 23.59 kg/m2 [facility] Systolic blood 2021-07-03 08:18:00 156 mm[Hg] [facility] Diastolic blood 2021-07-03 08:18:00 67 mm[Hg] [facility] Heart rate 2021-07-03 08:18:00 68 /min [facility] Body temperature 2021-07-03 08:18:00 36.22 Priya [facility] Respiratory rate 2021-07-03 08:18:00 20 /min [facility] Oxygen saturation in 2021-07-03 08:18:00 94 /min [facility] Arterial blood by Medical Ce [facility]ter Pulse oximetry Heart rate 2021-07-02 10:00:00 72 /min [facility] Systolic blood 2021-07-02 08:00:00 171 mm[Hg] [facility] Diastolic blood 2021-07-02 08:00:00 78 mm[Hg] [facility] Body temperature 2021-07-02 08:00:00 36.56 Priya [facility] Respiratory rate 2021-07-02 08:00:00 20 /min [facility] Oxygen saturation in 2021-07-02 08:00:00 94 /min [facility] Arterial blood by Medical Ce [facility] Pulse oximetry Body weight 2021-07-02 04:21:00 62.37 kg [facility] BMI 2021-07-02 04:21:00 24.36 kg/m2 [facility] Systolic blood 2021-07-01 09:15:00 167 mm[Hg] [facility] Diastolic blood 2021-07-01 09:15:00 71 mm[Hg] [facility] Heart rate 2021-07-01 09:15:00 71 /min [facility] Respiratory rate 2021-07-01 09:15:00 14 /min [facility] Oxygen saturation in 2021-07-01 09:15:00 96 /min [facility] Arterial blood by Medical Ce [facility]ter Pulse oximetry Body temperature 2021-07-01 09:00:00 36.44 Priya [facility] Systolic blood 2021-06-29 14:24:00 169 mm[Hg] [facility] Diastolic blood 2021-06-29 14:24:00 71 mm[Hg] [facility] Heart rate 2021-06-29 14:24:00 70 /min [facility] Body temperature 2021-06-29 14:24:00 36.67 Priya [facility] Respiratory rate 2021-06-29 14:24:00 20 /min [facility] Oxygen saturation in 2021-06-29 14:24:00 98 /min [facility] Arterial blood by Medical Ce [facility]ter Pulse oximetry Systolic blood 2021-06-29 07:46:00 133 mm[Hg] [facility] Diastolic blood 2021-06-29 07:46:00 63 mm[Hg] [facility] Heart rate 2021-06-29 07:46:00 70 /min [facility] Body temperature 2021-06-29 07:46:00 36.44 Priya [facility] Respiratory rate 2021-06-29 07:46:00 20 /min [facility] Oxygen saturation in 2021-06-29 07:46:00 97 /min [facility] Arterial blood by Medical Ce [facility]ter Pulse oximetry Systolic blood 2021-06-26 10:15:00 169 mm[Hg] [facility] Diastolic blood 2021-06-26 10:15:00 66 mm[Hg] [facility] Heart rate 2021-06-26 10:15:00 71 /min [facility] Body temperature 2021-06-26 10:15:00 36.56 Priya [facility] Respiratory rate 2021-06-26 10:15:00 16 /min [facility] Oxygen saturation in 2021-06-26 10:15:00 99 /min [facility] Arterial blood by Medical Ce [facility]ter Pulse oximetry Systolic blood 2021-06-26 08:15:00 128 mm[Hg] [facility] Diastolic blood 2021-06-26 08:15:00 53 mm[Hg] [facility] Heart rate 2021-06-26 08:15:00 70 /min [facility] Body temperature 2021-06-26 08:15:00 36.5 Priya [facility] Respiratory rate 2021-06-26 08:15:00 9 /min [facility] Oxygen saturation in 2021-06-26 08:15:00 97 /min [facility] Arterial blood by Medical [facility] Pulse oximetry Body weight 2021-06-25 00:00:00 64.5 kg [facility] BMI 2021-06-25 00:00:00 25.19 kg/m2 [facility] Body height 2021-06-13 11:09:00 160 cm [facility] Body height 2020-07-24 16:34:00 160 cm [facility] Body weight 2020-07-24 16:34:00 67 kg [facility] BMI 2020-07-24 16:34:00 26.17 kg/m2 [facility] Temperature Oral (F) 2019-02-19 22:00:00 98.3 F [facility] Heart Rate 2019-02-19 22:00:00 [facility] Respitory Rate 2019-02-19 22:00:00 [facility] Systolic (mm Hg) 2019-02-19 22:00:00 [facility]on [facility] [place] Diastolic (mm Hg) 2019-02-19 22:00:00 [facility] Height 2019-02-19 11:49:00 [facility] Weight 2019-02-19 11:49:00 [facility] Height 2019-01-26 05:47:00 [facility] Heart Rate 2019-01-26 05:47:00 [facility] Respitory Rate 2019-01-26 05:47:00 [facility] [place] Systolic (mm Hg) 2019-01-26 05:47:00 [facility] Diastolic (mm Hg) 2019-01-26 05:47:00 [facility] [place] Temperature Oral (F) 2019-01-26 05:19:00 101.3 F [facility] Weight 2019-01-26 01:51:00 [facility] Heart Rate 2018-10-11 20:05:00 [facility] Systolic (mm Hg) 2018-10-11 20:05:00 D[facility] [place] Diastolic (mm Hg) 2018-10-11 20:05:00 [facility] Temperature Oral (F) 2018-10-11 20:00:00 98.1 F [facility] Respitory Rate 2018-10-11 20:00:00 [facility] [place] Height 2018-10-10 13:16:00 [facility] Weight 2018-10-10 13:16:00 [facility] Procedures Procedure Date / Time Performing Clinician Source Performed EXTERNAL PROVIDER RECORDS 2021-12-15 05:01:00 Doctor Unassigned, No [facility] EXTERNAL PROVIDER - ADC 2021-10-21 05:01:00 Doctor Unassigned, N o [facility] REFERRAL [facility] ARRYTHMIA IMPLANT REPORT 2021-07-06 00:00:00 Provider, Judah ALEGRIA [facility] POCT-GLUCOSE METER 2021-07-04 08:33:00 Logan Russo [facility] CBC (HEMOGRAM ONLY) 2021-07-04 04:37:00 Martinez Ricardo [facility] BASIC METABOLIC PANEL 2021-07-04 04:37:00 Martinez Ricardo I [facility] MAGNESIUM 2021-07-04 04:37:00 Martinez Ricardo [facility] PHOSPHORUS 2021-07-04 04:37:00 Davion Martinez [facility] XR CHEST 1 VIEW PORTABLE 2021-07-04 04:30:00 Martinez Ricardo [facility] / BEDSIDE [facility] POCT-GLUCOSE METER 2021-07-03 21:18:00 RussoLogan [facility] POCT-GLUCOSE METER 2021-07-03 17:40:00 Logan Russo [facility] SARS-COV2/RT-PCR ([facility] & 2021-07-03 17:24:00 Martinez Ricardo [facility] REF LABS) [facility] POCT-GLUCOSE METER 2021-07-03 16:06:00 Logan Russo [facility] REPORT OF PROCEDURE - 2021-07-03 15:34:23 AmaratAngela croft [facility] ENDOSCOPY URL [facility] COLONOSCOPY 2021-07-03 15:05:[address] [facility] TISSUE EXAM 2021-07-03 15:04:[address] [facility] COLONOSCOPY,POLYPECTOMY 2021-07-03 14:39:00 AmaratRowan croft [facility] COLONOSCOPY, WITH 2021-07-03 14:39:00 Amluis Mayopremajaden [facility] POLYPECTOMY [facility] COLONOSCOPY 2021-07-03 14:00:[address] [facility] POCT-GLUCOSE METER 2021-07-03 13:31:00 RussoLogan [facility] COLONOSCOPY 2021-07-03 13:00:[address] [facility] HEMODIALYSIS INPATIENT 2021-07-03 10:32:50 Wilner Aponte [facility] POCT-GLUCOSE METER 2021-07-03 08:44:00 Russo, Logan Vaca [facility] XR CHEST 1 VIEW PORTABLE 2021-07-03 05:24:00 [facility] 2021-07-03 03:08:00 Davion [facility] BASIC METABOLIC PANEL 2021-07-03 03:08:00 Martinez Ricardo Mendoza [facility] MAGNESIUM 2021-07-03 03:08:00 Davion [facility] PHOSPHORUS 2021-07-03 03:08:00 Davion [facility] POCT-GLUCOSE METER 2021-07-02 21:26:00 RussoLogan [facility] POCT-GLUCOSE METER 2021-07-02 17:49:00 RussoLogan [facility] POCT-GLUCOSE METER 2021-07-02 12:48:00 RussoLogan [facility] POCT-GLUCOSE METER 2021-07-02 08:33:00 RussoLogan [facility] XR CHEST 1 VIEW PORTABLE 2021-07-02 06:45:00 Martinez Ricardo [facility] CBC (HEMOGRAM ONLY) 2021-07-02 05:29:00 Davion [facility] BASIC METABOLIC PANEL 2021-07-02 05:29:00 Martinez Ricardo CH [facility] MAGNESIUM 2021-07-02 05:29:00 Davion Martinez [facility] PHOSPHORUS 2021-07-02 05:29:00 Davion Martinez [facility] POCT-GLUCOSE METER 2021-07-01 21:45:00 RussoLogan [facility] POCT-GLUCOSE METER 2021-07-01 17:44:00 RussoLogan [facility] POCT-GLUCOSE METER 2021-07-01 13:26:00 Logan Russo [facility] HEMODIALYSIS INPATIENT 2021-07-01 12:51:00 Jersey Costello Wilner [facility] HEMODIALYSIS INPATIENT 2021-07-01 09:16:58 Jersey Costello Wilner [facility] POCT-GLUCOSE METER 2021-07-01 08:31:00 Logan Russo [facility] XR CHEST 1 VIEW PORTABLE 2021-07-01 05:38:00 Martinez Ricardo [facility] / BEDSIDE [facility] CBC (HEMOGRAM ONLY) 2021-07-01 05:15:00 Martinez Ricardo [facility] BASIC METABOLIC PANEL 2021-07-01 05:15:00 Martinez Ricardo CH [facility] MAGNESIUM 2021-07-01 05:15:00 Martinez Ricardo [facility] PHOSPHORUS 2021-07-01 05:15:00 Martinez Ricardo [facility] POCT-GLUCOSE METER 2021-06-30 21:03:00 Logan Russo [facility] VENOGRAM 2021-06-30 18:06:00 Krzysztof Dodd [facility] POCT-GLUCOSE METER 2021-06-30 17:27:00 Logan Russo [facility] XR ABDOMEN/KUB 1 VIEW 2021-06-30 17:21:00 Angela Loco [facility] PORTABLE [facility] POCT-GLUCOSE METER 2021-06-30 12:24:00 RussoLogan [facility] POCT-GLUCOSE METER 2021-06-30 08:15:00 RussoLogan [facility] CBC (HEMOGRAM ONLY) 2021-06-30 04:40:00 Martinez Ricardo [facility] BASIC METABOLIC PANEL 2021-06-30 04:40:00 Martinez Ricardo CH I [facility] MAGNESIUM 2021-06-30 04:40:00 Martinez Ricardo [facility] PHOSPHORUS 2021-06-30 04:40:00 Martinez Ricardo [facility] XR CHEST 1 VIEW PORTABLE 2021-06-30 03:46:00 Martinez Ricardo [facility] PREPARE LEUKO-REDUCED RBC 2021-06-29 23:54:00 Dillon Ricardo [facility] POCT-GLUCOSE METER 2021-06-29 21:53:00 RussoLogan [facility] POCT-GLUCOSE METER 2021-06-29 17:44:00 RussoLogan [facility] POCT-GLUCOSE METER 2021-06-29 14:20:00 RussoLogan [facility] HEMODIALYSIS INPATIENT 2021-06-29 13:25:00 Bertrand Bueno [facility] POCT-GLUCOSE METER 2021-06-29 08:39:00 RussoLogan [facility] XR CHEST 1 VIEW PORTABLE 2021-06-29 05:20:00 Martinez Ricardo [facility] CBC (HEMOGRAM ONLY) 2021-06-29 04:49:00 Martinez Ricardo [facility] BASIC METABOLIC PANEL 2021-06-29 04:49:00 Martinez Ricardo [facility] MAGNESIUM 2021-06-29 04:49:00 Martinez Ricardo [facility] PHOSPHORUS 2021-06-29 04:49:00 Martinez Ricardo [facility] POCT-GLUCOSE METER 2021-06-28 19:42:00 RussoLogan del cid [facility] POCT-GLUCOSE METER 2021-06-28 17:22:00 Logan Russo [facility] CBC W/PLT COUNT & AUTO 2021-06-28 15:23:[address] [facility] CBC W/PLT COUNT & AUTO 2021-06-28 15:23:[address] [facility] POCT-GLUCOSE METER 2021-06-28 12:31:00 Logan Russo [facility] TRANSFUSE LEUKO-REDUCED 2021-06-28 11:03:00 [facility]LOOD CELLS [facility] PREPARE LEUKO-REDUCED RBC 2021-06-28 10:49:00 Dillon Ricardo [facility] POCT-GLUCOSE METER 2021-06-28 08:32:00 Logan Russo [facility] XR CHEST 1 VIEW PORTABLE 2021-06-28 04:23:00 Martinez Ricrado [facility] / BEDSIDE [facility] CBC (HEMOGRAM ONLY) 2021-06-28 04:05:00 Martinez Ricardo [facility] BASIC METABOLIC PANEL 2021-06-28 04:05:00 Martinez Ricardo I [facility] MAGNESIUM 2021-06-28 04:05:00 Martinez Ricardo [facility] PHOSPHORUS 2021-06-28 04:05:00 [facility] RBC 2021-06-27 23:54:00 Dillon Ricardo [facility] POCT-GLUCOSE METER 2021-06-27 21:27:00 RussoLogan del cid [facility] POCT-GLUCOSE METER 2021-06-27 17:51:00 Logan Russo [facility] POCT-GLUCOSE METER 2021-06-27 15:02:00 Russo, Logan Vaca [facility] POCT-GLUCOSE METER 2021-06-27 12:08:00 Russo, Logan Vaca [facility] POCT-GLUCOSE METER 2021-06-27 08:23:00 Russo, Logan Vaca [facility] SARS-COV2/RT-PCR ([facility] & 2021-06-27 04:13:[address] [facility] REF LABS) [facility] CBC (HEMOGRAM ONLY) 2021-06-27 04:08:00 Davion [facility] BASIC METABOLIC PANEL 2021-06-27 04:08:00 Martinez Ricardo I [facility] MAGNESIUM 2021-06-27 04:08:00 [facility] 2021-06-27 04:08:00 Davion [facility] APTT 2021-06-27 04:08:00 Mary, [facility] PROTHROMBIN TIME/INR 2021-06-27 04:08:00 Mary, [facility] XR CHEST 1 VIEW PORTABLE 2021-06-27 03:58:00 Martinez Ricardo [facility] / BEDSIDE [facility] POCT-GLUCOSE METER 2021-06-26 20:59:00 Russo, Logan Vaca [facility] HEMODIALYSIS INPATIENT 2021-06-26 19:13:00 Wilner Aponte [facility] POCT-GLUCOSE METER 2021-06-26 18:55:00 Russo, Logan Vaca [facility] HEMOGLOBIN AND HEMATOCRIT 2021-06-26 11:31:00 Dannielle Erwin [facility] POCT-GLUCOSE METER 2021-06-26 11:15:00 Russo, Logan Vaca [facility] POCT-GLUCOSE METER 2021-06-26 09:16:00 RussoLogan [facility] LASER EXTRACTION,LEAD 2021-06-26 07:30:00 Krzysztof Dodd [facility] TRANSFUSE LEUKO-REDUCED 2021-06-26 06:15:00 Martinez Ricardo [facility] RED BLOOD CELLS [facility] PREPARE LEUKO-REDUCED RBC 2021-06-26 06:01:00 Dillon Ricardo [facility] CBC (HEMOGRAM ONLY) 2021-06-26 03:25:00 Martinez Ricardo [facility] BASIC METABOLIC PANEL 2021-06-26 03:25:00 Martinez Ricardo [facility] MAGNESIUM 2021-06-26 03:25:00 Martinez Ricardo [facility] PHOSPHORUS 2021-06-26 03:25:00 Martinez Ricardo [facility] APTT 2021-06-26 03:25:00 MaryAbel hernandez [facility] PROTHROMBIN TIME/INR 2021-06-26 03:25:00 MaryAbel hernandez [facility] XR CHEST 1 VIEW PORTABLE 2021-06-26 01:25:00 Martinez Ricardo [facility] / BEDSIDE [facility] POCT-GLUCOSE METER 2021-06-25 21:46:00 Logan Russo [facility] TYPE AND SCREEN, 2021-06-25 18:55:00 Krzysztof Dodd [facility] AUTOMATED [facility] IR TUNNELED CATHETER 2021-06-25 17:45:00 Gurinder Nash [facility] INSERTION [facility] POCT-GLUCOSE METER 2021-06-25 11:18:00 Logan Russo [facility] ECG 12-LEAD 2021-06-25 09:57:06 Unknown, Hl7 [facility] ECG 12-LEAD 2021-06-25 09:57:06 Unknown, Hl7 [facility] ECG 12-LEAD 2021-06-25 09:57:06 Unknown, 7 [facility] ECG 12-LEAD 2021-06-25 09:56:17 Unknown, Hl7 [facility] ECG 12-LEAD 2021-06-25 09:56:17 Unknown, Hl7 [facility] CBC (HEMOGRAM ONLY) 2021-06-25 02:56:00 Martinez Ric[facility] [facility] BASIC METABOLIC PANEL 2021-06-25 02:56:[address] [facility] MAGNESIUM 2021-06-25 02:56:00 [facility] 2021-06-25 02:56:00 Davion [facility] APTT 2021-06-25 02:56:00 MaryAbel hernandez [facility] PROTHROMBIN TIME/INR 2021-06-25 02:56:00 MaryAbel hernandez [facility] XR CHEST 1 VIEW PORTABLE 2021-06-25 02:31:00 Martinez Ricardo [facility] / BEDSIDE [facility] POCT-GLUCOSE METER 2021-06-24 22:02:00 [facility]so[facility]an [facility] XR ABDOMEN/KUB 1 VIEW 2021-06-24 18:29:[address] [facility] POCT-GLUCOSE METER 2021-06-24 16:07:00 RussoLogan del cid [facility] POCT-GLUCOSE METER 2021-06-24 12:26:00 Logan Russo [facility] HEMODIALYSIS INPATIENT 2021-06-24 11:25:03 Wilner Aponte [facility] POCT-GLUCOSE METER 2021-06-24 08:28:00 Logan Russo [facility] CBC (HEMOGRAM ONLY) 2021-06-24 03:01:00 [facility]OLIC PANEL 2021-06-24 03:01:00 Martinez Ricardo CH I [facility] MAGNESIUM 2021-06-24 03:01:00 [facility]US 2021-06-24 03:01:00 [facility] AP[facility] 2021-06-24 03:01:00 MaryAbel hernandez [facility] PROTHROMBIN TIME/INR 2021-06-24 03:01:00 MaryAbel hernandez [facility] XR CHEST 1 VIEW PORTABLE 2021-06-24 00:32:[address] [facility] POCT-GLUCOSE METER 2021-06-23 20:56:00 Russo, Logan Vaca [facility] POCT-GLUCOSE METER 2021-06-23 16:10:00 [facility]an [facility] BASIC METABOLIC PANEL 2021-06-23 12:59:00 Anumudu [facility] POCT-GLUCOSE METER 2021-06-23 11:20:00 RussoLogan [facility] POCT-GLUCOSE METER 2021-06-23 07:29:00 [facility]an [facility] BASIC METABOLIC PANEL 2021-06-23 04:49:00 Anum[address]maria m, [facility] MAGNESIUM 2021-06-23 04:49:00 Davion [facility] PHOSPHORUS 2021-06-23 04:49:00 Davion [facility] CBC (HEMOGRAM ONLY) 2021-06-23 02:41:00 Davion [facility] APTT 2021-06-23 02:41:00 MaryAbel hernandez [facility] PROTHROMBIN TIME/INR 2021-06-23 02:41:00 MaryAbel hernandez [facility] XR CHEST 1 VIEW PORTABLE 2021-06-23 01:19:[address] [facility] POCT-GLUCOSE METER 2021-06-22 22:11:00 [facility]an [facility] POCT-GLUCOSE METER 2021-06-22 18:02:00 [facility]an [facility] 2D ECHO W/ DOPPLER 2021-06-22 15:55:38 Lupis Erwin CH, I [facility]OLIC PANEL 2021-06-22 14:30:00 Omaira Manzo [facility] POCT-GLUCOSE METER 2021-06-22 12:25:00 Logan Russo [facility] HEMODIALYSIS INPATIENT 2021-06-22 11:44:15 Wilner Aponte [facility] OXYGEN SATURATION, 2021-06-22 10:35:00 Lupis Erwin CH, I [facility] BASIC METABOLIC PANEL 2021-06-22 05:37:00 Jovany [facility] CBC (HEMOGRAM ONLY) 2021-06-22 01:34:00 Davion [facility] APTT 2021-06-22 01:34:00 Mary [facility] PROTHROMBIN TIME/INR 2021-06-22 01:34:00 Abel Hernandez [facility] BASIC METABOLIC PANEL 2021-06-22 01:33:[address] [facility] MAGNESIUM 2021-06-22 01:33:00 Davion [facility] PHOSPHORUS 2021-06-22 01:33:00 [facility] XR CHEST 1 VIEW PORTABLE 2021-06-22 01:05:[address] [facility] / BEDSIDE [facility] POCT-GLUCOSE METER 2021-06-21 21:09:00 RussoLogan [facility] POCT-GLUCOSE METER 2021-06-21 18:58:00 [facility]Logan [facility] POCT-GLUCOSE METER 2021-06-21 13:30:00 [facility]an [facility] BASIC METABOLIC PANEL 2021-06-21 13:29:00 Jovany [facility] PREPARE LEUKO-REDUCED RBC 2021-06-21 03:28:00 Derick Carver Si [facility] BASIC METABOLIC PANEL 2021-06-21 03:21:00 [facility] 2021-06-21 03:21:00 Ahmad [facility] PHOSPHORUS 2021-06-21 03:21:00 Ahmad [facility] CBC (HEMOGRAM ONLY) 2021-06-21 03:21:00 Davion [facility] APTT 2021-06-21 03:21:00 Mary [facility] PROTHROMBIN TIME/INR 2021-06-21 03:21:00 Mary [facility] XR CHEST 1 VIEW PORTABLE 2021-06-21 01:34:[address] [facility] / BEDSIDE [facility] PREPARE LEUKO-REDUCED RBC 2021-06-20 23:54:00 Art Jiménez [facility] BASIC METABOLIC PANEL 2021-06-20 17:40:00 Omaira Manzo [facility] POCT-GLUCOSE METER 2021-06-20 13:33:00 RussoLogan [facility] POCT-GLUCOSE METER 2021-06-20 06:06:00 Logan Russo [facility] SARS-COV2/RT-PCR ([facility] & 2021-06-20 01:20:[address] [facility] REF LABS) [facility] BLOOD GAS, ARTERIAL 2021-06-20 01:20:00 MaryAbel hernandez [facility] BASIC METABOLIC PANEL 2021-06-20 01:19:00 Ahsarah [facility] MAGNESIUM 2021-06-20 01:19:00 Ahsarah [facility] PHOSPHORUS 2021-06-20 01:19:00 Roni [facility] CBC (HEMOGRAM ONLY) 2021-06-20 01:19:00 Davion [facility] APTT 2021-06-20 01:19:00 MaryAbel hernandez [facility] PROTHROMBIN TIME/INR 2021-06-20 01:19:00 MaryAbel hernandez [facility] CALCIUM, IONIZED 2021-06-20 01:19:00 Jersey Costello [facility] XR CHEST 1 VIEW PORTABLE 2021-06-20 01:05:00 Martinez Ricardo [facility] / BEDSIDE [facility] PREPARE PLATELETS 2021-06-19 23:55:00 Jameson Kuo [facility] PREPARE RBC 2021-06-19 23:54:00 Logan Russo [facility] MAGNESIUM 2021-06-19 21:32:00 Jersey Costello [facility] PH, ARTERIAL 2021-06-19 21:32:00 Jersey Costello [facility] PHOSPHORUS 2021-06-19 21:32:00 Jersey Costello [facility] BASIC METABOLIC PANEL 2021-06-19 21:32:00 Omaira Manzo [facility] POCT-GLUCOSE METER 2021-06-19 17:55:00 Logan Rus[facility] BLOOD GAS, ARTERIAL 2021-06-19 12:39:00 MaryAbel [facility] BLOOD GAS, ARTERIAL 2021-06-19 11:13:00 MaryAbel hernnadez [facility] POCT-GLUCOSE METER 2021-06-19 08:41:00 Logan Russo [facility] TRANSFUSE LEUKO-REDUCED 2021-06-19 07:45:00 Derick Carver [facility] RED BLOOD CELLS [facility] BASIC METABOLIC PANEL 2021-06-19 02:14:00 Ahmapamela [facility] MAGNESIUM 2021-06-19 02:14:00 Roni [facility] PHOSPHORUS 2021-06-19 02:14:00 Roni [facility] CBC (HEMOGRAM ONLY) 2021-06-19 02:14:00 Martinez Ricardo [facility] APTT 2021-06-19 02:14:00 MaryAbel [facility] PROTHROMBIN TIME/INR 2021-06-19 02:14:00 MaryAbel [facility] BLOOD GAS, ARTERIAL 2021-06-19 02:14:00 Mary, Abel Rey [facility] OXYGEN SATURATION, 2021-06-19 02:14:00 Art Jiménez [facility] XR CHEST 1 VIEW PORTABLE 2021-06-19 01:52:00 Nan Ricardochary [facility] / BEDSIDE [facility] POCT-GLUCOSE METER 2021-06-18 23:55:00 Russo, Logan Vaca [facility] PREPARE LEUKO-REDUCED RBC 2021-06-18 23:55:00 Shiva Jeter [facility] POCT-GLUCOSE METER 2021-06-18 23:03:00 Russo, Logan Vaca [facility] POCT-GLUCOSE METER 2021-06-18 21:14:00 Russo, Logan Vaca [facility] POCT-GLUCOSE METER 2021-06-18 18:54:00 Russo, Logan Vaca [facility] CBC (HEMOGRAM ONLY) 2021-06-18 18:15:00 MaryAbel [facility] BASIC METABOLIC PANEL 2021-06-18 18:15:00 Mary Abelscarlett Rey [facility] APTT 2021-06-18 18:15:00 MaryAbel [facility] PROTHROMBIN TIME/INR 2021-06-18 18:15:00 Mary Abel [facility] LACTIC ACID, ARTERIAL 2021-06-18 18:15:00 MaryAbel [facility] PHOSPHORUS 2021-06-18 18:15:00 MaryAbel [facility] MAGNESIUM 2021-06-18 18:15:00 Mary Abel [facility] BLOOD GAS, ARTERIAL 2021-06-18 18:15:00 Mary, [facility] OXYGEN SATURATION, 2021-06-18 18:15:00 Mary [facility] RRL CRITICAL LABS 2021-06-18 16:04:00 Mary [facility] (ABG,NA,K,H&H,GLUCOSE) Medical C enter CALCIUM, IONIZED 2021-06-18 16:04:00 Mary [facility] BLOOD GAS, ARTERIAL 2021-06-18 16:04:00 Mary [facility] SODIUM NA-STAT LAB 2021-06-18 16:04:00 Mary [facility] POTASSIUM-STAT LAB 2021-06-18 16:04:00 Mary, [facility] GLUCOSE-STAT LAB 2021-06-18 16:04:00 Mary [facility] HGB/HCT (H&H) - STAT LAB 2021-06-18 16:04:00 Mary [facility] PREPARE PLASMA 2021-06-18 15:44:00 Beth [facility] XR CHEST 1 VIEW PORTABLE 2021-06-18 15:33:00 Abel Hernandez [facility] / BEDSIDE Medical Center OXYGEN SATURATION, 2021-06-18 15:03:00 Mary Abel [facility] SURGICALLY OBTAINED 2021-06-18 15:01:35 Logan Russo CHI CULTURE + GRAM STAIN Medical [facility] FUNGUS CULTURE + SMEAR 2021-06-18 15:01:35 Logan Russo [facility] [employer] CULTURE + SMEAR 2021-06-18 15:01:35 Logan Russo CHI (NON-SPUTUM) [facility] HEMOGLOBIN AND HEMATOCRIT 2021-06-18 14:58:00 Luh Cosby CH I [facility] CBC W/PLT COUNT & AUTO 2021-06-18 14:58:00 Abel Hernandez [facility] CBC W/PLT COUNT & AUTO 2021-06-18 14:58:[address] [facility] (CELLAVISION MANUAL DIFF) 2021-06-18 14:58:00 Abel Hernandez [facility] BASIC METABOLIC PANEL 2021-06-18 14:57:00 Abel Hernandez CH I [facility] MAGNESIUM 2021-06-18 14:57:00 Abel Hernandez [facility] CALCIUM, IONIZED 2021-06-18 14:57:00 MaryAbel hernandez [facility] PROTHROMBIN TIME/INR 2021-06-18 14:57:00 Abel Hernandez [facility] APTT 2021-06-18 14:57:00 Abel Hernandez [facility] PHOSPHORUS 2021-06-18 14:57:00 Abel Hernandez [facility] POTASSIUM 2021-06-18 14:57:00 Abel Hernandez [facility] PREPARE PLATELETS 2021-06-18 14:20:00 Jameson Kuo [facility] PLATELET COUNT 2021-06-18 13:12:54 Max [facility] POCT-ACT 2021-06-18 13:08:00 Logan Russo [facility] RRL CRITICAL LABS 2021-06-18 13:05:56 [facility] (ABG,NA,K,H&H,GLUCOSE) [facility] enter CALCIUM, IONIZED 2021-06-18 13:05:56 [facility] FIBRINOGEN 2021-06-18 13:05:56 Max [facility] APTT 2021-06-18 13:05:56 Cottle [facility] PROTHROMBIN TIME/INR 2021-06-18 13:05:56 [facility] S t [facility] BLOOD GAS, ARTERIAL 2021-06-18 13:05:56 Cottle [facility] SODIUM NA-STAT LAB 2021-06-18 13:05:56 Max [facility] POTASSIUM-STAT LAB 2021-06-18 13:05:56 Max [facility] GLUCOSE-STAT LAB 2021-06-18 13:05:56 Max [facility] HGB/HCT (H&H) - STAT LAB 2021-06-18 13:05:56 Asad Santana [facility] TRANSFUSE LEUKO-REDUCED 2021-06-18 12:46:00 CottleAsad morel [facility] PLATELETS [facility] TRANSFUSE LEUKO-REDUCED 2021-06-18 12:45:00 MaxAsad morel [facility] RRL CRITICAL LABS 2021-06-18 12:22:57 [facility] (ABG,NA,K,H&H,GLUCOSE) Medical C enter BLOOD GAS, ARTERIAL 2021-06-18 12:22:57 Logan Russo [facility] SODIUM NA-STAT LAB 2021-06-18 12:22:57 Logan Russo [facility] POTASSIUM-STAT LAB 2021-06-18 12:22:57 Logan Russo [facility] GLUCOSE-STAT LAB 2021-06-18 12:22:57 Logan Russo [facility] HGB/HCT (H&H) - STAT LAB 2021-06-18 12:22:57 Logan Russo [facility] POCT-ACT 2021-06-18 12:20:00 Logan Russo [facility] RRL CRITICAL LABS 2021-06-18 12:17:57 [facility] (ABG,NA,K,H&H,GLUCOSE) Medical C enter BLOOD GAS, ARTERIAL 2021-06-18 12:17:57 Logan Russo [facility] SODIUM NA-STAT LAB 2021-06-18 12:17:57 Logan Russo [facility] POTASSIUM-STAT LAB 2021-06-18 12:17:57 Logan Russo [facility] GLUCOSE-STAT LAB 2021-06-18 12:17:57 Logan Russo [facility] HGB/HCT (H&H) - STAT LAB 2021-06-18 12:17:57 Logan Russo [facility] MISCELLANEOUS LAB ORDER 2021-06-18 11:59:38 Cottle [facility] PLATELET COUNT 2021-06-18 11:59:38 Cottle [facility] FIBRINOGEN 2021-06-18 11:59:38 [facility] PROTHROMBIN TIME/INR 2021-06-18 11:59:[address] [facility] APTT 2021-06-18 11:59:38 [facility] PO[facility] 2021-06-18 11:43:00 Logan Russo [facility] TISSUE EXAM 2021-06-18 11:41:00 Logan Russo [facility] RRL CRITICAL LABS 2021-06-18 11:40:27 Logan Russo [facility] (ABG,NA,K,H&H,GLUCOSE) Medical C enter BLOOD GAS, ARTERIAL 2021-06-18 11:40:27 Logan Russo [facility] SODIUM NA-STAT LAB 2021-06-18 11:40:27 Logan Russo [facility] POTASSIUM-STAT LAB 2021-06-18 11:40:27 Logan Russo [facility] GLUCOSE-STAT LAB 2021-06-18 11:40:27 Logan Russo [facility] HGB/HCT (H&H) - STAT LAB 2021-06-18 11:40:27 Logan Russo [facility] POCT-ACT 2021-06-18 11:15:00 Logan Russo [facility] RRL CRITICAL LABS 2021-06-18 11:13:46 Russo, [facility] (ABG,NA,K,H&H,GLUCOSE) Medical C enter BLOOD GAS, ARTERIAL 2021-06-18 11:13:46 Russo, [facility] SODIUM NA-STAT LAB 2021-06-18 11:13:46 Russo, [facility] POTASSIUM-STAT LAB 2021-06-18 11:13:46 Russo, [facility] GLUCOSE-STAT LAB 2021-06-18 11:13:46 Russo, [facility] HGB/HCT (H&H) - STAT LAB 2021-06-18 11:13:46 Russo, [facility] POCT-ACT 2021-06-18 10:47:00 Russo, [facility] RRL CRITICAL LABS 2021-06-18 10:45:20 Russo, [facility] (ABG,NA,K,H&H,GLUCOSE) Medical C enter BLOOD GAS, ARTERIAL 2021-06-18 10:45:20 Russo, [facility] SODIUM NA-STAT LAB 2021-06-18 10:45:20 Russo, [facility] POTASSIUM-STAT LAB 2021-06-18 10:45:20 Russo, [facility] GLUCOSE-STAT LAB 2021-06-18 10:45:20 Russo, [facility] HGB/HCT (H&H) - STAT LAB 2021-06-18 10:45:20 Russo, [facility] POCT-ACT 2021-06-18 10:14:00 Russo, [facility] ANESTHESIA NIMCO 2021-06-18 10:03:35 Lydia Marmolejo [facility] TRANSFUSE LEUKO-REDUCED 2021-06-18 09:26:00 Asad Santana [facility] RED BLOOD CELLS [facility] RRL CRITICAL LABS 2021-06-18 08:54:20 Max, [facility] (ABG,NA,K,H&H,GLUCOSE) [facility] enter CALCIUM, IONIZED 2021-06-18 08:54:20 Max [facility] BLOOD GAS, ARTERIAL 2021-06-18 08:54:20 [facility] NA-STAT LAB 2021-06-18 08:54:20 Cottle [facility] POTASSIUM-STAT LAB 2021-06-18 08:54:20 [facility] GLUCOSE-STAT LAB 2021-06-18 08:54:20 [facility] HGB/HCT (H&H) - STAT LAB 2021-06-18 08:54:[address] [facility] ECHOCARDIOGRAM, 2021-06-18 07:38:00 Russo, [facility] TRANSESOPHAGEAL [facility] REPAIR, MITRAL VALVE 2021-06-18 07:38:00 Russo, [facility] REPAIR, TRICUSPID VALVE 2021-06-18 07:38:00 Russo [facility] STERNOTOMY 2021-06-18 07:38:00 Russo, [facility] NIMCO 2021-06-18 07:38:00 Russo [facility] CBC W/PLT COUNT & AUTO 2021-06-18 05:37:00 Ahsarah [facility] BASIC METABOLIC PANEL 2021-06-18 05:37:00 Ahmad [facility] MAGNESIUM 2021-06-18 05:37:00 Ahmad [facility] PHOSPHORUS 2021-06-18 05:37:00 Ahmapamela [facility] CBC W/PLT COUNT & AUTO 2021-06-18 05:37:00 [facility]-REDUCED 2021-06-17 23:31:00 Shiva Jeter [facility] RED BLOOD CELLS [facility] POCT-GLUCOSE METER 2021-06-17 21:28:00 [facility] HEMOGLOBIN AND HEMATOCRIT 2021-06-17 21:16:00 [facility] ABDOMEN/PELVIS WITHOUT 2021-06-17 17:07:00 [facility] IV CONTRAST [facility] XR ABDOMEN/KUB 1 VIEW 2021-06-17 16:15:00 [facility] PORTABLE [facility] MAGNESIUM 2021-06-17 15:48:00 [facility] COMPREHENSIVE METABOLIC 2021-06-17 15:48:00 [facility] PANEL [facility] HEMOGLOBIN A1C 2021-06-17 15:48:00 [facility] CBC W/PLT COUNT & AUTO 2021-06-17 15:48:00 [facility] DIFFERENTIAL [facility] PROTHROMBIN TIME/INR 2021-06-17 15:48:00 [facility] APTT 2021-06-17 15:48:00 [facility] TYPE AND SCREEN, 2021-06-17 15:48:00 [facility] AUTOMATED [facility] CBC W/PLT COUNT & AUTO 2021-06-17 15:48:00 [facility] DIFFERENTIAL [facility] ECG 12-LEAD 2021-06-17 15:31:19 [facility] HEMODIALYSIS INPATIENT 2021-06-17 08:22:41 Wilner Aponte [facility] CBC W/PLT COUNT & AUTO 2021-06-17 04:15:00 Roni [facility] BASIC METABOLIC PANEL 2021-06-17 04:15:00 Roni [facility] MAGNESIUM 2021-06-17 04:15:00 Roni [facility] PHOSPHORUS 2021-06-17 04:15:00 Ahmapamela [facility] CBC W/PLT COUNT & AUTO 2021-06-17 04:15:00 Roni [facility] POCT-GLUCOSE METER 2021-06-16 23:59:00 Harjeet [facility] POCT-GLUCOSE METER 2021-06-16 18:00:00 Harjeet [facility] [place] CEREBRAL 4 VESSEL 2021-06-16 12:55:00 Eloy Portillo [facility] ANGIOGRAM [facility] PACEMAKER CHECK WITH 2021-06-16 10:00:06 Rosa [facility] REPROGRAMMING [facility] MR BRAIN WITHOUT IV 2021-06-16 09:57:00 Ladarius Jc [facility] CONTRAST [facility] PACEMAKER CHECK WITH 2021-06-16 09:31:48 Rosa [facility] REPROGRAMMING [facility] POCT-GLUCOSE METER 2021-06-16 07:18:00 Harjeet [facility] CBC W/PLT COUNT & AUTO 2021-06-16 04:21:00 Roni [facility] BASIC METABOLIC PANEL 2021-06-16 04:21:00 Roni [facility] MAGNESIUM 2021-06-16 04:21:00 Roni [facility] PHOSPHORUS 2021-06-16 04:21:00 Roni [facility] CBC W/PLT COUNT & AUTO 2021-06-16 04:21:00 Roni [facility] POCT-GLUCOSE METER 2021-06-15 21:28:00 Harjeet [facility] CTA HEART CORONARY WITH 2021-06-15 18:20:00 Roni [facility] CALCIUM EVALUATION Medical Cente r WITHOUT FFR HEPATIC FUNCTION PANEL 2021-06-15 15:18:00 Harjeet [facility] ABORH, MANUAL 2021-06-15 05:54:00 Desirae Kelli Tavia [facility] PT/APTT 2021-06-15 04:16:00 Ahmad, [facility] CBC W/PLT COUNT & AUTO 2021-06-15 04:16:00 Ahmad, [facility] BASIC METABOLIC PANEL 2021-06-15 04:16:00 Ahmad, [facility] MAGNESIUM 2021-06-15 04:16:00 Ahmad, [facility] PHOSPHORUS 2021-06-15 04:16:00 Ahmad, [facility] TYPE AND SCREEN, 2021-06-15 04:16:00 Ahmad, [facility] CBC W/PLT COUNT & AUTO 2021-06-15 04:16:00 sarah [facility] POCT-GLUCOSE METER 2021-06-14 11:09:00 Ladarius Jc [facility] nter POCT-GLUCOSE METER 2021-06-14 07:31:00 Ladarius Jc [facility] nter EEG 12-26 HR CONTINUOUS 2021-06-14 06:25:00 Ladarius Jc I [facility] MONITORING WITH VIDEO [facility] CBC W/PLT COUNT & AUTO 2021-06-14 04:05:00 Roni [facility] BASIC METABOLIC PANEL 2021-06-14 04:05:00 Ahsarah [facility] MAGNESIUM 2021-06-14 04:05:00 Ahsarah [facility] PHOSPHORUS 2021-06-14 04:05:00 Ahmad [facility] CBC W/PLT COUNT & AUTO 2021-06-14 04:05:00 Angel Saenz [facility] POCT-GLUCOSE METER 2021-06-13 17:10:00 Ladarius Jc [facility] nter POCT-GLUCOSE METER 2021-06-13 12:44:[address] HEPARIN ANTIBODY 2021-06-13 11:25:00 Kavitha Almodovar [facility] EEG 12-26 HR CONTINUOUS 2021-06-13 11:06:00 Pamela Orta [facility] MONITORING WITH VIDEO Medical Ce nter IRON, TIBC, % SAT. 2021-06-13 08:28:00 Jaron [facility] (WITHOUT FERRITIN) Medical Cente r FERRITIN 2021-06-13 08:28:00 [facility] PO[facility]-GLU[facility]SE [facility] 2021-06-13 08:27:00 Mary Kate Gracia [facility] CBC W/PLT COUNT & AUTO 2021-06-13 03:36:00 Roni [facility] BASIC METABOLIC PANEL 2021-06-13 03:36:00 Ahmapamela [facility] MAGNESIUM 2021-06-13 03:36:00 Ahmad [facility] PHOSPHORUS 2021-06-13 03:36:00 Ahmapamela [facility] CBC W/PLT COUNT & AUTO 2021-06-13 03:36:00 Angel Saenz [facility] POCT-GLUCOSE METER 2021-06-13 01:48:00 Mary Kate Gracia [facility] HEMODIALYSIS INPATIENT 2021-06-12 23:02:[address] [facility] POCT-GLUCOSE METER 2021-06-12 18:54:00 Mary Kate Gracia [facility] SARS-COV2/RT-PCR ([facility] & 2021-06-12 17:07:00 Martinez Ricardo [facility] REF LABS) [facility] EEG AWAKE AND DROWSY 2021-06-12 12:20:[address] [facility] CT BRAIN WITHOUT IV 2021-06-12 08:15:[address] [facility] POCT-GLUCOSE METER 2021-06-12 07:20:00 Mary Kate Graciahir [facility] CTA BRAIN 2021-06-12 01:53:00 Janina [facility] CTA CAROTID 2021-06-12 01:53:00 Janina [facility] CT BRAIN WITHOUT IV 2021-06-12 01:31:00 Janina, [facility] CBC W/PLT COUNT & AUTO 2021-06-12 01:07:00 Roni [facility] HIGH SENSITIVITY TROPONIN 2021-06-12 01:07:00 Mary Kate Gracia [facility] LACTIC ACID, VENOUS 2021-06-12 01:07:00 [facility] PROTHROMBIN TIME/INR 2021-06-12 01:07:00 Mary Kate Gracia [facility] CBC W/PLT COUNT & AUTO 2021-06-12 01:07:00 Anshul Acharya [facility] BASIC METABOLIC PANEL 2021-06-12 00:49:00 Ahmapamela [facility] MAGNESIUM 2021-06-12 00:49:00 Ahmad [facility] PHOSPHORUS 2021-06-12 00:49:00 Ahmad [facility] ECG 12-LEAD 2021-06-12 00:43:57 Unknown, Hl7 [facility] ECG 12-LEAD 2021-06-12 00:43:57 Unknown, Hl7 [facility] ECG 12-LEAD 2021-06-12 00:43:57 Unknown, 7 [facility] ECG 12-LEAD 2021-06-12 00:40:07 Unknown, 7 [facility] ECG 12-LEAD 2021-06-12 00:40:07 Unknown, 7 [facility] ECG 12-LEAD 2021-06-12 00:39:50 Unknown, Hl7 [facility] ECG 12-LEAD 2021-06-12 00:39:50 Unknown, Hl7 [facility] ECG 12-LEAD 2021-06-12 00:39:50 Unknown, Hl7 [facility] POCT-GLUCOSE METER 2021-06-12 00:35:00 [facility] POCT-GLUCOSE METER 2021-06-11 20:12:00 Samia [facility] POCT-GLUCOSE METER 2021-06-11 16:12:00 [facility] BLOOD CULTURE 2021-06-11 11:47:00 Jocelyne Alejandre [facility] POCT-GLUCOSE METER 2021-06-11 11:17:00 [facility] PACEMAKER CHECK 2021-06-11 10:59:25 Hernandez James [facility] POCT-GLUCOSE METER 2021-06-11 06:33:00 [facility] BLOOD CULTURE 2021-06-11 04:03:00 Jessica John [facility] CBC W/PLT COUNT & AUTO 2021-06-11 04:03:00 Roni [facility] BASIC METABOLIC PANEL 2021-06-11 04:03:00 AhmaSamia santiago [facility] MAGNESIUM 2021-06-11 04:03:00 AhmadSamia [facility] PHOSPHORUS 2021-06-11 04:03:00 Ahmad [facility] CBC W/PLT COUNT & AUTO 2021-06-11 04:03:00 Anshul Acharya [facility] POCT-BLOOD GASES, VENOUS 2021-06-10 22:25:00 [facility] POCT-SODIUM 2021-06-10 22:25:00 [facility] POCT-POTASSIUM 2021-06-10 22:25:00 Samia [facility] POCT-HEMOGLOBIN 2021-06-10 22:25:00 Samia [facility] POCT-HEMATOCRIT 2021-06-10 22:25:00 Samia [facility] POCT-GLUCOSE 2021-06-10 22:25:00 Samia [facility] CBC W/PLT COUNT & AUTO 2021-06-10 22:23:00 Jessica John [facility] CBC W/PLT COUNT & AUTO 2021-06-10 22:23:00 Jessica John [facility] XR CHEST 1 VIEW PORTABLE 2021-06-10 22:14:00 Jessica John [facility] / BEDSIDE [facility] BLOOD CULTURE 2021-06-10 22:08:00 Jessica John [facility] LACTIC ACID, VENOUS 2021-06-10 22:07:00 Jessica John [facility] POCT-GLUCOSE METER 2021-06-10 21:20:00 [facility] HEMODIALYSIS INPATIENT 2021-06-10 17:49:00 Wilner Aponte [facility] POCT-GLUCOSE METER 2021-06-10 16:22:00 [facility] POCT-GLUCOSE METER 2021-06-10 11:29:00 Samia [facility] POCT-GLUCOSE METER 2021-06-10 07:27:00 Samia [facility] CBC W/PLT COUNT & AUTO 2021-06-10 04:36:00 Samia Tamayo [facility] BASIC METABOLIC PANEL 2021-06-10 04:36:00 Samia Tamayo [facility] MAGNESIUM 2021-06-10 04:36:00 Samia Tamayo [facility] PHOSPHORUS 2021-06-10 04:36:00 Ahmad [facility] CBC W/PLT COUNT & AUTO 2021-06-10 04:36:00 Anshul Acharya [facility] POCT-GLUCOSE METER 2021-06-09 21:22:00 Haj-Ismail, [facility] POCT-GLUCOSE METER 2021-06-09 16:16:00 Haj-Ismail, [facility] 2D ECHO W/ DOPPLER 2021-06-09 12:21:49 Kip Rony [facility] (CW/PW/COLOR) [facility] TRANSESOPHAGEAL ECHO 2021-06-09 09:04:02 [facility] POCT-GLUCOSE METER 2021-06-09 06:11:00 Haj-Ismail, [facility] CBC W/PLT COUNT & AUTO 2021-06-09 03:34:00 Ahsarah [facility] BASIC METABOLIC PANEL 2021-06-09 03:34:00 Ahmad, [facility] MAGNESIUM 2021-06-09 03:34:00 Ahmad, [facility] PHOSPHORUS 2021-06-09 03:34:00 Ahmad, [facility] CBC W/PLT COUNT & AUTO 2021-06-09 03:34:00 Anshul Acharya [facility] POCT-GLUCOSE METER 2021-06-08 21:03:00 Haj-Ismail, [facility] HEMODIALYSIS INPATIENT 2021-06-08 15:21:58 Jersey Costello [facility] COLOR-FLOW MAPPING 2021-06-08 13:42:[address] [facility] CONT WAVE PULSED DOPPLER 2021-06-08 13:42:25 Hill [facility] PTH, INTACT 2021-06-08 10:29:00 Jersey Costello [facility] HEPATITIS B SURFACE 2021-06-08 10:29:00 Real Delgado [facility] HEPATITIS PANEL, ACUTE 2021-06-08 10:29:00 Nathen-Kanwal Frost [facility] POCT-GLUCOSE METER 2021-06-08 06:59:[address] [facility] CBC W/PLT COUNT & AUTO 2021-06-08 05:00:00 [facility] BASIC METABOLIC PANEL 2021-06-08 05:00:00 [facility] MAGN[facility]UM 2021-06-08 05:00[facility]00 [facility] 2021-06-08 05:00:00 [facility] PROTHROMBIN TIME/INR 2021-06-08 05:00:00 Patrizia [facility] VITAMIN B12 2021-06-08 05:00:00 Anshul Acharya [facility] FERRITIN 2021-06-08 05:00:00 Jersey [facility] IRON, TIBC, % SAT. 2021-06-08 05:00:00 Jersey Costello [facility] (WITHOUT FERRITIN) [facility] VITAMIN D, 25-HYDROXY 2021-06-08 05:00:00 Jersey Costello [facility] CBC W/PLT COUNT & AUTO 2021-06-08 05:00:00 Anshul Acharya [facility] US ABDOMEN LIMITED 2021-06-08 04:51:00 Anshul Acharya [facility] SARS-COV2/RT-PCR ([facility] & 2021-06-07 23:43:00 Angel Saenz [facility] REF LABS) [facility] POCT-GLUCOSE METER 2021-06-07 23:11:[address] [facility] ECG 12-LEAD 2021-06-07 23:06:38 Unknown, Hl7 [facility] ECG 12-LEAD 2021-06-07 23:06:38 Unknown, Hl7 [facility] ECG 12-LEAD 2021-06-07 23:06:38 Unknown, Hl7 [facility] BLOOD CULTURE 2021-06-07 21:48:00 Patrizia Anshul Sarah [facility] BLOOD CULTURE 2021-06-07 21:41:00 Patrizia Anshul Sarah [facility] CBC W/PLT COUNT & AUTO 2021-06-07 21:41:00 Patrizia Anshul Sarah [facility] COMPREHENSIVE METABOLIC 2021-06-07 21:41:00 Patrizia Anshul Sarah [facility] VANCOMYCIN LEVEL, RANDOM 2021-06-07 21:41:00 Patrizia Anshul Sarah [facility] CBC W/PLT COUNT & AUTO 2021-06-07 21:41:00 Patrizia Anshul Sarah [facility] XR CHEST 1 VIEW PORTABLE 2021-06-07 19:59:00 Patrizia Anshul Sarah [facility] / BEDSIDE [facility] VASCULAR DIAGRAM -SCAN 2021-06-07 00:00:00 Provider, Judah [facility] CARDIAC CATH REPORT - 2021-06-07 00:00:00 Provider, Judah [facility] ARRYTHMIA IMPLANT REPORT 2021-06-07 00:00:00 Provider, Judah Sarah [facility] POCT GLUCOSE (AUTOMATED) 2021-05-22 23:19:00 Neil Thomas [facility] POCT GLUCOSE (AUTOMATED) 2021-05-22 17:36:00 Neil Thomas [facility] POCT GLUCOSE (AUTOMATED) 2021-05-22 13:43:00 Neil Thomas [facility] BASIC METABOLIC PANEL 2021-05-22 09:37:00 José Miguel Horn [facility] (NA, K, CL, CO2, GLUCOSE, Medica l Branch BUN, CREATININE, CA) CBC WITH DIFF 2021-05-22 09:37:00 José Miguel Horn [facility] GLUCOSE 2021-05-21 23:41:00 Candido Robison [facility] PROTEIN TOTAL 2021-05-21 23:41:00 Candido Robison [facility] LACTATE DEHYDROGENASE 2021-05-21 23:41:00 Candido Robison [facility] TROPONIN I 2021-05-21 23:41:00 Tameka Mcdaniels [facility] N-TERMINAL PRO-BNP 2021-05-21 23:41:00 José Miguel Horn [facility] POCT GLUCOSE (AUTOMATED) 2021-05-21 23:14:00 Neil Thomas [facility] POCT GLUCOSE (AUTOMATED) 2021-05-21 16:58:00 Neil Thomas [facility] POCT GLUCOSE (AUTOMATED) 2021-05-21 13:47:00 [facility] 1 VW 2021-05-21 13:06:23 Gt [facility] VITAMIN B12, LEVEL 2021-05-21 12:51:00 Gt becky [facility] FOLATE 2021-05-21 12:51:00 Gt [facility] TROPONIN I 2021-05-21 12:51:00 Gt [facility] IRON PANEL 2021-05-21 12:51:00 Gt [facility] VITAMIN D, 25-OH 2021-05-21 12:51:00 Gt [facility] FERRITIN SERUM 2021-05-21 09:32:00 Gt [facility] TROPONIN I 2021-05-21 09:32:00 Gt [facility] HEPATIC FUNCTION PANEL 2021-05-21 09:32:00 Taina Del Real [facility] ([id number]) (ALB,T.PRO,BILI Medical Branch T,BU/BC,ALT,AST,ALK PHOS) BASIC METABOLIC PANEL 2021-05-21 09:32:00 José Miguel Horn [facility] (NA, K, CL, CO2, GLUCOSE, Medica l Branch BUN, CREATININE, CA) DIFF CONSULT 2021-05-21 09:32:00 Gt [facility] CBC WITH DIFF 2021-05-21 09:32:00 José Miguel Horn [facility] N-TERMINAL PRO-BNP 2021-05-21 09:32:00 Taina Del Real [facility] POCT GLUCOSE (AUTOMATED) 2021-05-21 02:22:00 Neil Thomas [facility] XR CHEST 1 VW 2021-05-20 22:21:01 Ricki [facility] POCT GLUCOSE (AUTOMATED) 2021-05-20 22:14:00 Neil Thomas [facility] PH, BODY FLUID 2021-05-20 22:04:00 Ricki [facility] T.PROTEIN BODY FLUID 2021-05-20 22:04:00 Candido Robison [facility] BODY FLUID DIRECT COUNT 2021-05-20 22:04:[address] [facility] CYTO PLEURAL FLUID 2021-05-20 22:04:00 Candido Robison [facility] LDH TOTAL BODY FLUID 2021-05-20 22:04:00 Holly Redding [facility] AFB CULTURE 2021-05-20 21:50:00 Candido Robison [facility] BODY FLUID 2021-05-20 21:50:00 Ricki [facility] CULTURE([facility]OB[facility] XR CHEST 1 VW 2021-05-20 19:13:56 Candido Robison [facility] POCT GLUCOSE (AUTOMATED) 2021-05-20 16:59:00 Neil Thomas [facility] POCT GLUCOSE (AUTOMATED) 2021-05-20 13:25:00 Neil Thomas [facility] LACTATE DEHYDROGENASE 2021-05-20 09:50:00 Holly Redding [facility] BASIC METABOLIC PANEL 2021-05-20 09:50:00 Holly Redding [facility] (NA, K, CL, CO2, GLUCOSE, Medica l Branch BUN, CREATININE, CA) PROTHROMBIN TIME / INR 2021-05-20 09:50:00 Holly Redding [facility] N-TERMINAL PRO-BNP 2021-05-20 09:50:[address] [facility] POCT GLUCOSE (AUTOMATED) 2021-05-20 01:35:00 Neil Thomas [facility] POCT GLUCOSE (AUTOMATED) 2021-05-19 23:08:00 Niel Thomas [facility] POCT GLUCOSE (AUTOMATED) 2021-05-19 17:39:00 Neil Thomas [facility] POCT GLUCOSE (AUTOMATED) 2021-05-19 14:04:00 Neil Thomas [facility] BASIC METABOLIC PANEL 2021-05-19 11:24:00 [facility] (NA, K, CL, CO2, GLUCOSE, Medica l Branch BUN, CREATININE, CA) CBC WITH DIFF 2021-05-19 11:24:00 [facility] N-TERMINAL PRO-BNP 2021-05-19 11:24:[address] [facility] HEPATITIS B SURFACE 2021-05-19 03:18:00 [place], [facility] ANTIBODY [facility] HEPATITIS B SURFACE 2021-05-19 03:18:00 [place], [facility] ANTIGEN [facility] POCT GLUCOSE (AUTOMATED) 2021-05-19 03:11:00 Neil Thomas Uni [facility] POCT GLUCOSE (AUTOMATED) 2021-05-18 22:43:00 Neil Thomas [facility] POCT GLUCOSE (AUTOMATED) 2021-05-18 17:46:00 Neil Thomas [facility] POCT GLUCOSE (AUTOMATED) 2021-05-18 17:04:00 Neil Thomas [facility] BASIC METABOLIC PANEL 2021-05-18 15:05:00 Holly Redding [facility] (NA, K, CL, CO2, GLUCOSE, Medica l Branch BUN, CREATININE, CA) POCT GLUCOSE (AUTOMATED) 2021-05-18 13:20:00 [facility] DISCLOSURE AND CONSENT, 2021-05-18 06:01:00 Doctor Unassigned, N o [facility] MEDICAL AND SURGICAL Name Medical [facility] PROCEDURES POCT GLUCOSE (AUTOMATED) 2021-05-17 22:51:00 [facility] POCT GLUCOSE (AUTOMATED) 2021-05-17 17:51:00 [facility] TRANSTHORACIC ECHO (TTE) 2021-05-17 15:04:[address] [facility] POCT GLUCOSE (AUTOMATED) 2021-05-17 14:14:00 [facility] PHOSPHORUS 2021-05-17 10:03:00 William [facility] MAGNESIUM 2021-05-17 10:03:00 William [facility] BASIC METABOLIC PANEL 2021-05-17 10:03:00 William [facility] (NA, K, CL, CO2, GLUCOSE, Medica l Branch BUN, CREATININE, CA) CBC WITHOUT DIFF 2021-05-17 10:03:00 William [facility] N-TERMINAL PRO-BNP 2021-05-17 10:03:00 William [facility] POCT GLUCOSE (AUTOMATED) 2021-05-16 22:34:00 [facility] POCT GLUCOSE (AUTOMATED) 2021-05-16 17:41:00 [facility] POCT GLUCOSE (AUTOMATED) 2021-05-16 13:39:00 [facility] MAGNESIUM 2021-05-16 08:09:00 William [facility] TROPONIN I 2021-05-16 08:09:00 William [facility] BASIC METABOLIC PANEL 2021-05-16 08:09:00 William [facility] (NA, K, CL, CO2, GLUCOSE, Medica l Branch BUN, CREATININE, CA) LIPID PANEL ([id number])(TOTAL 2021-05-16 08:09:00 Neil Thomas [facility] CHOLESTEROL, Medical Branch TRIGLYCERIDES, HDL) CBC WITHOUT DIFF 2021-05-16 08:09:00 William [facility] GLYCOSYLATED HEMOGLOBIN 2021-05-16 08:09:00 [facility] (A1C) Medical Branch PHOSPHORUS 2021-05-16 02:06:00 William [facility] TROPONIN I 2021-05-16 02:06:00 William [facility] POCT GLUCOSE (AUTOMATED) 2021-05-16 02:05:00 Neil Thomas [facility] COVID-19 (ID NOW RAPID 2021-05-15 22:31:00 Dangelo Ibrahim [facility] TESTING) Medical Branch LAB ONLY COVID 2021-05-15 22:31:00 Singer [facility] INTERPRETATION [facility] XR KNEE <3 VW RIGHT 2021-05-15 22:12:44 Singer Dangelo [facility] CHEST PULMONARY 2021-05-15 22:00:00 Dangelo Ibrahim [facility] ANGIOGRAM Medical Branch XR CHEST 1 VW 2021-05-15 20:32:18 Singer [facility] LIPASE 2021-05-15 19:37:00 Singer [facility] MAGNESIUM 2021-05-15 19:37:00 Singer [facility] TROPONIN I 2021-05-15 19:37:00 Singer [facility] THYROID STIMULATING 2021-05-15 19:37:00 William [facility] HORMONE [facility] COMP. METABOLIC PANEL 2021-05-15 19:37:00 Dangelo Ibrahim [facility] ([id number]) Medical Branch CBC WITH DIFF 2021-05-15 19:37:00 Singer [facility] GLYCOSYLATED HEMOGLOBIN 2021-05-15 19:37:00 Neil Thomas [facility] (A1C) [facility] PROTHROMBIN TIME / INR 2021-05-15 19:37:[address] [facility] D-DIMER 2021-05-15 19:37:00 Dangelo Ibrahim [place] [facility] N-TERMINAL PRO-BNP 2021-05-15 19:37:00 Dangelo Ibrahim [facility] HB ECG ROUTINE & RHYTHM 2021-05-15 19:13:17 Dangelo Ibrahim [facility] NOTICE OF PRIVACY 2021-05-15 18:55:45 Doctor Unassigned, No [facility] PRACTICES [facility] CONSENT/REFUSAL FOR 2021-05-15 18:55:20 Doctor Unassigned, [facility] HOSPITAL ADMISSION 2021-05-15 06:01:00 Doctor Unassigned, No [facility] Chest Single View 2019-02-17 00:00:00 [facility] Influenza Type A Antigen 2019-02-17 00:00:00 [facility] orial Juanito Screen Influenza Type B Antigen 2019-02-17 00:00:00 [facility] oridavid Solomon Screen Culture & Sensitivity 2019-01-25 00:00:00 Talisha Suarez Chest Pa And Lat (2 2019-01-25 00:00:[address] [facility] Anaerobic Blood Culture 2018-10-09 00:00:00 Dickson Solomon Aerobic Blood Culture 2018-10-09 00:00:00 Talisha Suarez Gram Stain 2018-10-09 00:00:[address] [facility] Anaerobic Culture 2018-10-09 00:00:00 [facility] Plan of Care Planned Activity Planned Date Details Comments Source Future Scheduled 2031-07-[address] [facility] colon (procedure) [code = 582172745] Future Scheduled 2031-07-[address] [facility] 00:00:00 [facility] colon (procedure) [code = 723186896] Future Scheduled 2031-07-[address] [facility] 00:00:00 [facility] colon (procedure) [code = 173437394] Future Scheduled 2031-07-[address] [facility] 00:00:00 [facility] colon (procedure) [code = 528811860] Future Scheduled 2031-07-[address] [facility] 00:00:00 [facility] colon (procedure) [code = 246430501] Future Scheduled 2031-07-[address] [facility] 00:00:00 [facility] colon (procedure) [code = 489827322] Future Scheduled 2031-07-[address] [facility] 00:00:00 [facility] colon (procedure) [code = 742505337] Future Scheduled 2031-07-[address] [facility] 00:00:00 [facility] colon (procedure) [code = 540300054] Future Scheduled 2031-07-[address] [facility] 00:00:00 [facility] colon (procedure) [code = 652714060] Future Scheduled 2031-07-[address] [facility] 00:00:00 [facility] colon (procedure) [code = 814635253] Future Scheduled 2031-07-[address] [facility] 00:00:00 [facility] colon (procedure) [code = 091022655] Future Scheduled 2031-07-[address] [facility] 00:00:00 [facility] colon (procedure) [code = 710932500] Future Scheduled 2031-07-[address] [facility] 00:00:00 [facility] colon (procedure) [code = 429060738] Future Scheduled 2031-07-[address] [facility] 00:00:00 [facility] colon (procedure) [code = 644857960] Future Scheduled 2023-04-[address] [facility] 00:00:00 malignant [facility] cervix (procedure) [code = 642443158] Future Scheduled 2023-04-[address] [facility] 00:00:00 malignant [facility] cervix (procedure) [code = 251920114] Future Scheduled 2023-04-[address] [facility] 00:00:00 malignant [facility] cervix (procedure) [code = 066451765] Future Scheduled 2023-04-[address] [facility] 00:00:00 malignant [facility] cervix (procedure) [code = 946453872] Future Scheduled 2023-04-[address] [facility] 00:00:00 malignant [facility] cervix (procedure) [code = 172488311] Future Scheduled 2023-04-[address] [facility] 00:00:00 malignant [facility]oplasm [facility] cervix (procedure) [code = 017634020] Future Scheduled 2023-04-[address] [facility] 00:00:00 malignant [facility]oplasm [facility] cervix (procedure) [code = 403748519] Future Scheduled 2023-04-[address] [facility] 00:00:00 malignant [facility]oplasm [facility] cervix (procedure) [code = 262127168] Future Scheduled 2023-04-[address] [facility] 00:00:00 malignant [facility] cervix (procedure) [code = 356665642] Future Scheduled 2023-04-[address] [facility] 00:00:00 malignant [facility] cervix (procedure) [code = 616707076] Future Scheduled 2023-04-[address] [facility] 00:00:00 malignant [facility] cervix (procedure) [code = 151331389] Future Scheduled 2023-04-[address] [facility] 00:00:00 malignant [facility] cervix (procedure) [code = 143370737] Future Scheduled 2023-04-[address] [facility] 00:00:00 malignant [facility] cervix (procedure) [code = 835453163] Future Scheduled 2023-04-[address] [facility] 00:00:00 malignant [facility] cervix (procedure) [code = 145150602] Future Scheduled 2023-04-[address]00[facility]00 [facility] [code = 827244917] Future Scheduled 2023-04-[address] [facility] 00:00:00 [facility]procedure) [code = 219645883] Future Scheduled [address] [...] (2 of 2 - PPSV23)] Future Scheduled 2022-06-[address] [facility] Test 00:00:00 [facility] Scre[facility] (12+) [code = Tobacco Cessation Counseling and Screening (12+)] Future Scheduled 2022-03-26 COVID-19 VACCINE (#1) [facility] Test 05:32:52 [code = COVID-19 VACCINE (#1)] Future Scheduled 2022-03-26 Screening for [facility] Test 05:32:52 malignant neoplasm of cervix (procedure) [code = 020772318] Future Scheduled 2022-03-26 COLONOSCOPY SCREENING [facility] Test 05:32:52 [code = COLONOSCOPY SCREENING] Future Scheduled 2022-03-26 SHINGLES VACCINES (1 Met [facility] Test 05:32:52 of 2) [code = SHINGLES VACCINES (1 of 2)] Future Scheduled 2022-03-26 BREAST CANCER [facility] Test 05:32:52 SCREENING [code = BREAST CANCER SCREENING] Future Scheduled 2022-03-26 INFLUENZA VACCINE [facility] Test 05:32:52 [code = INFLUENZA VACCINE] Future Scheduled 2022-02-05 HEPATITIS B VACCINES [facility] Test 07:30:57 (1 of 3 - 3-dose series) [code = HEPATITIS B VACCINES (1 of 3 - 3-dose series)] Future Scheduled 2022-02-05 COVID-19 VACCINE (#1) [facility] Test 07:30:57 [code = COVID-19 VACCINE (#1)] Future Scheduled 2022-02-05 Screening for [facility] Test 07:30:57 malignant neoplasm of cervix (procedure) [code = 470620172] Future Scheduled 2022-02-05 COLONOSCOPY SCREENING [facility] Test 07:30:57 [code = COLONOSCOPY SCREENING] Future Scheduled 2022-02-05 SHINGLES VACCINES (1 Met [facility] Test 07:30:57 of 2) [code = SHINGLES VACCINES (1 of 2)] Future Scheduled 2022-02-05 BREAST CANCER [facility] Test 07:30:57 SCREENING [code = BREAST CANCER SCREENING] Future Scheduled 2022-02-05 INFLUENZA VACCINE [facility] Test 07:30:57 [code = INFLUENZA VACCINE] Future Scheduled 2021-12-11 HEPATITIS B VACCINES Met [facility] Test 12:22:17 (1 of 3 - 3-dose series) [code = HEPATITIS B VACCINES (1 of 3 - 3-dose series)] Future Scheduled 2021-12-11 COVID-19 VACCINE (#1) [facility] Test 12:22:17 [code = COVID-19 VACCINE (#1)] Future Scheduled 2021-12-11 Screening for [facility] Test 12:22:17 malignant neoplasm of cervix (procedure) [code = [id number]] Future Scheduled 2021-12-11 COLONOSCOPY SCREENING [facility] Test 12:22:17 [code = COLONOSCOPY SCREENING] Future Scheduled 2021-12-11 SHINGLES VACCINES (1 Met [facility] Test 12:22:17 of 2) [code = SHINGLES VACCINES (1 of 2)] Future Scheduled 2021-12-11 BREAST CANCER [facility] Test 12:22:17 SCREENING [code = BREAST CANCER SCREENING] Future Scheduled 2021-12-11 INFLUENZA VACCINE [facility] Test 12:22:17 [code = INFLUENZA VACCINE] Future Scheduled 2021-12-11 HEPATITIS B VACCINES Met [facility] Test 12:22:17 (1 of 3 - 3-dose series) [code = HEPATITIS B VACCINES (1 of 3 - 3-dose series)] Future Scheduled 2021-12-11 COVID-19 VACCINE (#1) [facility] Test 12:22:17 [code = COVID-19 VACCINE (#1)] Future Scheduled 2021-12-11 Screening for [facility] Test 12:22:17 malignant neoplasm of cervix (procedure) [code = [id number]] Future Scheduled 2021-12-11 COLONOSCOPY SCREENING [facility] Test 12:22:17 [code = COLONOSCOPY SCREENING] Future Scheduled 2021-12-11 SHINGLES VACCINES (1 Met [facility] Test 12:22:17 of 2) [code = SHINGLES VACCINES (1 of 2)] Future Scheduled 2021-12-11 BREAST CANCER [facility] Test 12:22:17 SCREENING [code = BREAST CANCER SCREENING] Future Scheduled 2021-12-11 INFLUENZA VACCINE [facility] Test 12:22:17 [code = INFLUENZA VACCINE] Future Scheduled 2021-12-11 HEPATITIS B VACCINES Met [facility] Test 12:22:17 (1 of 3 - 3-dose series) [code = HEPATITIS B VACCINES (1 of 3 - 3-dose series)] Future Scheduled 2021-12-11 COVID-19 VACCINE (#1) [facility] Test 12:22:17 [code = COVID-19 VACCINE (#1)] Future Scheduled 2021-12-11 Screening for [facility] Test 12:22:17 malignant neoplasm of cervix (procedure) [code = [id number]] Future Scheduled 2021-12-11 COLONOSCOPY SCREENING [facility] Test 12:22:17 [code = COLONOSCOPY SCREENING] Future Scheduled 2021-12-11 SHINGLES VACCINES (1 Met [facility] Test 12:22:17 of 2) [code = SHINGLES VACCINES (1 of 2)] Future Scheduled 2021-12-11 BREAST CANCER [facility] Test 12:22:17 SCREENING [code = BREAST CANCER SCREENING] Future Scheduled 2021-12-11 INFLUENZA VACCINE Method [facility] Test 12:22:17 [code = INFLUENZA VACCINE] Future Scheduled 2021-12-11 HEPATITIS B VACCINES Met [facility] Test 12:22:17 (1 of 3 - 3-dose series) [code = HEPATITIS B VACCINES (1 of 3 - 3-dose series)] Future Scheduled 2021-12-11 COVID-19 VACCINE (#1) [facility] Test 12:22:17 [code = COVID-19 VACCINE (#1)] Future Scheduled 2021-12-11 Screening for [facility] Test 12:22:17 malignant neoplasm of cervix (procedure) [code = [id number]] Future Scheduled 2021-12-11 COLONOSCOPY SCREENING [facility] Test 12:22:17 [code = COLONOSCOPY SCREENING] Future Scheduled 2021-12-11 SHINGLES VACCINES (1 Met [facility] Test 12:22:17 of 2) [code = SHINGLES VACCINES (1 of 2)] Future Scheduled 2021-12-11 BREAST CANCER [facility] Test 12:22:17 SCREENING [code = BREAST CANCER SCREENING] Future Scheduled 2021-12-11 INFLUENZA VACCINE [facility] Test 12:22:17 [code = INFLUENZA [...] Future Scheduled 2021-12-02 HEPATITIS B VACCINES Met [facility] Test 19:59:35 (1 of 3 - 3-dose series) [code = HEPATITIS B VACCINES (1 of 3 - 3-dose series)] Future Scheduled 2021-12-02 COVID-19 VACCINE (#1) [facility] Test 19:59:35 [code = COVID-19 VACCINE (#1)] Future Scheduled 2021-12-02 Screening for [facility] Test 19:59:35 malignant neoplasm of cervix (procedure) [code = 122076510] Future Scheduled 2021-12-02 COLONOSCOPY SCREENING [facility] Test 19:59:35 [code = COLONOSCOPY SCREENING] Future Scheduled 2021-12-02 SHINGLES VACCINES (1 Met [facility] Test 19:59:35 of 2) [code = SHINGLES VACCINES (1 of 2)] Future Scheduled 2021-12-02 BREAST CANCER [facility] Test 19:59:35 SCREENING [code = BREAST CANCER SCREENING] Future Scheduled 2021-12-02 INFLU[facility]ZA VACCINE [facility] Test 19:59:35 [code = INFLUENZA VACCINE] Future Scheduled 2021-07-08 COVID-19 VACCINE (1) Met [facility] Test 18:18:56 [code = COVID-19 VACCINE (1)] Future Scheduled 2021-07-08 DIABETES: RETINAL EYE [facility] Test 18:18:56 EXAM [code = DIABETES: RETINAL EYE EXAM] Future Scheduled 2021-07-08 DIABETIC FOOT EXAM [facility] Test 18:18:56 [code = DIABETIC FOOT EXAM] Future Scheduled 2021-07-08 COLONOSCOPY SCREENING [facility] Test 18:18:56 [code = COLONOSCOPY SCREENING] Future Scheduled 2021-07-08 SHINGLES VACCINES (#1) M [facility] Test 18:18:56 [code = SHINGLES VACCINES (#1)] Future Scheduled 2021-07-08 BREAST CANCER [facility] Test 18:18:56 SCREENING [code = BREAST CANCER SCREENING] Future Scheduled 2021-07-08 Screening for [facility] Test 18:18:56 malignant neoplasm of cervix (procedure) [code = 567871096] Future Scheduled 2021-07-08 INFLUENZA VACCINE Method [facility] Test 18:18:56 [code = INFLUENZA VACCINE] Future Scheduled 2021-06-26 COVID-19 VACCINE (1) [facility] Test 14:10:19 [code = COVID-19 VACCINE (1)] Future Scheduled 2021-06-26 DIABETES: RETINAL EYE [facility] Test 14:10:19 EXAM [code = DIABETES: RETINAL EYE EXAM] Future Scheduled 2021-06-26 DIABETIC FOOT EXAM [facility] Test 14:10:19 [code = DIABETIC FOOT EXAM] Future Scheduled 2021-06-26 COLONOSCOPY SCREENING [facility] Test 14:10:19 [code = COLONOSCOPY SCREENING] Future Scheduled 2021-06-26 SHINGLES VACCINES (#1) M [facility] Test 14:10:19 [code = SHINGLES VACCINES (#1)] Future Scheduled 2021-06-26 BREAST CANCER [facility] Test 14:10:19 SCREENING [code = BREAST CANCER SCREENING] Future Scheduled 2021-06-26 Screening for [facility] Test 14:10:19 malignant neoplasm of cervix (procedure) [code = 438674530] Future Scheduled 2021-06-26 INFLUENZA VACCINE [facility] Test 14:10:19 [code = INFLUENZA VACCINE] Future Scheduled 2021-06-26 COVID-19 VACCINE (1) Met [facility] Test 14:10:19 [code = COVID-19 VACCINE (1)] Future Scheduled 2021-06-26 DIABETES: RETINAL EYE [facility] Test 14:10:19 EXAM [code = DIABETES: RETINAL EYE EXAM] Future Scheduled 2021-06-26 DIABETIC FOOT EXAM [facility] Test 14:10:19 [code = DIABETIC FOOT EXAM] Future Scheduled 2021-06-26 COLONOSCOPY SCREENING [facility] Test 14:10:19 [code = COLONOSCOPY SCREENING] Future Scheduled 2021-06-26 SHINGLES VACCINES (#1) M [facility] Test 14:10:19 [code = SHINGLES VACCINES (#1)] Future Scheduled 2021-06-26 BREAST CANCER [facility] Test 14:10:19 SCREENING [code = BREAST CANCER SCREENING] Future Scheduled 2021-06-26 Screening for [facility] Test 14:10:19 malignant neoplasm of cervix (procedure) [code = 655331297] Future Scheduled 2021-06-26 INFLUENZA VACCINE [facility] Test 14:10:19 [code = INFLUENZA VACCINE] Future Scheduled 2021-06-26 COVID-19 VACCINE (1) [facility] Test 14:10:19 [code = COVID-19 VACCINE (1)] Future Scheduled 2021-06-26 DIABETES: RETINAL EYE [facility] Test 14:10:19 EXAM [code = DIABETES: RETINAL EYE EXAM] Future Scheduled 2021-06-26 DIABETIC FOOT EXAM [facility] Test 14:10:19 [code = DIABETIC FOOT EXAM] Future Scheduled 2021-06-26 COLONOSCOPY SCREENING [facility] Test 14:10:19 [code = COLONOSCOPY SCREENING] Future Scheduled 2021-06-26 SHINGLES VACCINES (#1) M [facility] Test 14:10:19 [code = SHINGLES VACCINES (#1)] Future Scheduled 2021-06-26 BREAST CANCER [facility] Test 14:10:19 SCREENING [code = BREAST CANCER SCREENING] Future Scheduled 2021-06-26 Screening for [facility] Test 14:10:19 malignant neoplasm of cervix (procedure) [code = [id number]] Future Scheduled 2021-06-26 INFLU[facility]ZA VACCINE [facility] Test 14:10:19 [code = INFLUENZA VACCINE] Future Scheduled 2021-06-26 COVID-19 VACCINE (1) [facility] Test 14:10:19 [code = COVID-19 VACCINE (1)] Future Scheduled 2021-06-26 DIABETES: RETINAL EYE [facility] Test 14:10:19 EXAM [code = DIABETES: RETINAL EYE EXAM] Future Scheduled 2021-06-26 DIABETIC FOOT EXAM [facility] Test 14:10:19 [code = DIABETIC FOOT EXAM] Future Scheduled 2021-06-26 COLONOSCOPY SCREENING [facility] Test 14:10:19 [code = COLONOSCOPY SCREENING] Future Scheduled 2021-06-26 SHINGLES VACCINES (#1) M [facility] Test 14:10:19 [code = SHINGLES VACCINES (#1)] Future Scheduled 2021-06-26 BREAST CANCER [facility] Test 14:10:19 SCREENING [code = BREAST CANCER SCREENING] Future Scheduled 2021-06-26 Screening for [facility] Test 14:10:19 malignant neoplasm of cervix (procedure) [code = 792943529] Future Scheduled 2021-06-26 INFLUENZA VACCINE [facility] Test 14:10:19 [code = INFLUENZA VACCINE] Future Scheduled 2021-06-26 COVID-19 VACCINE (1) [facility] Test 14:10:19 [code = COVID-19 VACCINE (1)] Future Scheduled 2021-06-26 DIABETES: RETINAL EYE [facility] Test 14:10:19 EXAM [code = DIABETES: RETINAL EYE EXAM] Future Scheduled 2021-06-26 DIABETIC FOOT EXAM [facility] Test 14:10:19 [code = DIABETIC FOOT EXAM] Future Scheduled 2021-06-26 COLONOSCOPY SCREENING [facility] Test 14:10:19 [code = COLONOSCOPY SCREENING] Future Scheduled 2021-06-26 SHINGLES VACCINES (#1) M [facility] Test 14:10:19 [code = SHINGLES VACCINES (#1)] Future Scheduled 2021-06-26 BREAST CANCER [facility] Test 14:10:19 SCREENING [code = BREAST CANCER SCREENING] Future Scheduled 2021-06-26 Scre[facility] for [facility] Test 14:10:19 malignant neoplasm of cervix (procedure) [code = 374841215] Future Scheduled 2021-06-26 INFLUENZA VACCINE [facility] Test 14:10:19 [code = INFLUENZA VACCINE] Future Scheduled 2021-06-26 COVID-19 VACCINE (1) [facility] Test 14:10:19 [code = COVID-19 VACCINE (1)] Future Scheduled 2021-06-26 DIABETES: RETINAL EYE [facility] Test 14:10:19 EXAM [code = DIABETES: RETINAL EYE EXAM] Future Scheduled 2021-06-26 DIABETIC FOOT EXAM [facility] Test 14:10:19 [code = DIABETIC FOOT EXAM] Future Scheduled 2021-06-26 COLONOSCOPY SCREENING [facility] Test 14:10:19 [code = COLONOSCOPY SCREENING] Future Scheduled 2021-06-26 SHINGLES VACCINES (#1) M [facility] Test 14:10:19 [code = SHINGLES VACCINES (#1)] Future Scheduled 2021-06-26 BREAST CANCER [facility] Test 14:10:19 SCREENING [code = BREAST CANCER SCREENING] Future Scheduled 2021-06-26 Screening for [facility] Test 14:10:19 malignant neoplasm of cervix (procedure) [code = 333947380] Future Scheduled 2021-06-26 INFLUENZA VACCINE [facility] Test 14:10:19 [code = INFLUENZA VACCINE] Future Scheduled 2021-06-26 COVID-19 VACCINE (1) [facility] Test 14:10:19 [code = COVID-19 VACCINE (1)] Future Scheduled 2021-06-26 DIABETES: RETINAL EYE [facility] Test 14:10:19 EXAM [code = DIABETES: RETINAL EYE EXAM] Future Scheduled 2021-06-26 DIABETIC FOOT EXAM [facility] Test 14:10:19 [code = DIABETIC FOOT EXAM] Future Scheduled 2021-06-26 COLONOSCOPY SCREENING [facility] Test 14:10:19 [code = COLONOSCOPY SCREENING] Future Scheduled 2021-06-26 SHINGLES VACCINES (#1) M [facility] Test 14:10:19 [code = SHINGLES VACCINES (#1)] Future Scheduled 2021-06-26 BREAST CANCER [facility] Test 14:10:19 SCREENING [code = BREAST CANCER SCREENING] Future Scheduled 2021-06-26 [facility] Test 14:10:19 malignant neoplasm of cervix (procedure) [code = 026896672] Future Scheduled 2021-06-26 INFLUENZA VACCINE [facility] Test 14:10:19 [code = INFLUENZA VACCINE] Future Scheduled 2021-06-26 COVID-19 VACCINE (1) [facility] Test 14:10:19 [code = COVID-19 VACCINE (1)] Future Scheduled 2021-06-26 DIABETES: RETINAL EYE [facility] Test 14:10:19 EXAM [code = DIABETES: RETINAL EYE EXAM] Future Scheduled 2021-06-26 DIABETIC FOOT EXAM [facility] Test 14:10:19 [code = DIABETIC FOOT EXAM] Future Scheduled 2021-06-26 COLONOSCOPY SCREENING [facility] Test 14:10:19 [code = COLONOSCOPY SCREENING] Future Scheduled 2021-06-26 SHINGLES VACCINES (#1) [facility] Test 14:10:19 [code = SHINGLES VACCINES (#1)] Future Scheduled 2021-06-26 BREAST CANCER [facility] Test 14:10:19 SCREENING [code = BREAST CANCER SCREENING] Future Scheduled 2021-06-26 Screening for [facility] Test 14:10:19 malignant neoplasm of cervix (procedure) [code = 482966665] Future Scheduled 2021-06-26 INFLUENZA VACCINE Method [facility] Test 14:10:19 [code = INFLUENZA VACCINE] Future Scheduled 2021-06-26 COVID-19 VACCINE (1) [facility] Test 14:10:19 [code = COVID-19 VACCINE (1)] Future Scheduled 2021-06-26 DIABETES: RETINAL EYE [facility] Test 14:10:19 EXAM [code = DIABETES: RETINAL EYE EXAM] Future Scheduled 2021-06-26 DIABETIC FOOT EXAM [facility] Test 14:10:19 [code = DIABETIC FOOT EXAM] Future Scheduled 2021-06-26 COLONOSCOPY SCREENING [facility] Test 14:10:19 [code = COLONOSCOPY SCREENING] Future Scheduled 2021-06-26 SHINGLES VACCINES (#1) M [facility] Test 14:10:19 [code = SHINGLES VACCINES (#1)] Future Scheduled 2021-06-26 BREAST CANCER [facility] Test 14:10:19 SCREENING [code = BREAST CANCER SCREENING] Future Scheduled 2021-06-26 Screening for [facility] Test 14:10:19 malignant neoplasm of cervix (procedure) [code = 916678444] Future Scheduled 2021-06-26 INFLUENZA VACCINE [facility] Test 14:10:19 [code = INFLUENZA VACCINE] Future Scheduled 2021-06-[address] [facility] Test 00:00:00 (procedure) [code = [facility] [id number]] Future Scheduled 2021-06-[address] [facility] Test 00:00:00 (procedure) [code = Medical Center [id number]] Future Scheduled 2021-06-[address] [facility] Test 00:00:00 (procedure) [code = [facility] [id number]] Future Scheduled 2021-06-[address] [facility] Test 00:00:00 (procedure) [code = Medical Center [id number]] Future Scheduled 2021-06-[address] [facility] Test 00:00:00 (procedure) [code = Medical Center [id number]] Future Scheduled 2021-06-[address] [facility] Test 00:00:00 (procedure) [code = Medical Center [id number]] Future Scheduled 2021-06-[address] [facility] Test 00:00:00 (procedure) [code = Medical Center 65148613] Future Scheduled 2021-06-[address] [facility] Test 00:00:00 (procedure) [code = Medical Center [id number]] Future Scheduled 2021-06-[address] [facility] Test 00:00:00 (procedure) [code = Medical Center 70990845] Future Scheduled 2021-06-[address] [facility] Test 00:00:00 (procedure) [code = Medical Center 61292613] Future Scheduled 2021-06-[address] [facility] Test 00:00:00 (procedure) [code = Medical Center [id number]] Future Scheduled 2021-06-[address] [facility] Test 00:00:00 (procedure) [code = Medical Center 85278549] Future Scheduled 2021-06-[address] [facility] Test 00:00:00 (procedure) [code = Medical Center [id number]] Future Scheduled 2021-06-[address] [facility] Test 00:00:00 (procedure) [code = Medical Center 16945257] Future Scheduled 2021-06-[address] [facility] Test 00:00:00 (procedure) [code = Medical Center 25731032] Future Scheduled 2021-06-[address] [facility] Test 00:00:00 (procedure) [code = Medical Center [id number]] Future Scheduled 2021-06-10 COVID-19 VACCINE (1) [facility] Test 17:58:22 [code = COVID-19 VACCINE (1)] Future Scheduled 2021-06-10 DIABETES: RETINAL EYE [facility] Test 17:58:22 EXAM [code = DIABETES: RETINAL EYE EXAM] Future Scheduled 2021-06-10 DIABETIC FOOT EXAM [facility] Test 17:58:22 [code = DIABETIC FOOT EXAM] Future Scheduled 2021-06-10 COLONOSCOPY SCREENING [facility] Test 17:58:22 [code = COLONOSCOPY SCREENING] Future Scheduled 2021-06-10 SHINGLES VACCINES (#1[facility] Test 17:58:22 [code = SHINGLES VACCINES (#1)] Future Scheduled 2021-06-10 BRE[facility] Test 17:58:22 SCREENING [code = BREAST CANCER SCREENING] Future Scheduled 2021-06-10 Screening for [facility] Test 17:58:22 malignant neoplasm of cervix (procedure) [code = 953801487] Future Scheduled 2021-06-10 INFLUENZA VACCINE [facility] Test 17:58:22 [code = INFLUENZA VACCINE] Future Scheduled 2021-05-12 COVID-19 [facility]INE (1) [facility] 00:12:28 [code = COVID-19 VACCINE (1)] Future Scheduled 2021-05-12 DIABETES: RETINAL EYE [facility] Test 00:12:28 EXAM [code = DIABETES: RETINAL EYE EXAM] Future Scheduled 2021-05-12 DIABETIC FOOT EXAM [facility] Test 00:12:28 [code = DIABETIC FOOT EXAM] Future Scheduled 2021-05-12 COLONOSCOPY SCREENING [facility] Test 00:12:28 [code = COLONOSCOPY SCREENING] Future Scheduled 2021-05-12 SHINGLES VACCINES (#1) [facility] Test 00:12:28 [code = SHINGLES VACCINES (#1)] Future Scheduled 2021-05-12 BREAST CANCER [facility] Test 00:12:28 SCREENING [code = BREAST CANCER SCREENING] Future Scheduled 2021-05-12 Screening for [facility] Test 00:12:28 malignant neoplasm of cervix (procedure) [code = 183964493] Future Scheduled 2021-05-12 INFLUENZA VACCINE Method ist [...] Future Scheduled 2021-02-11 COVID-19 VACCINE (1) [facility] Test 13:55:42 [code = COVID-19 VACCINE (1)] Future Scheduled 2021-02-11 DIABETES: RETINAL EYE [facility] Test 13:55:42 EXAM [code = DIABETES: RETINAL EYE EXAM] Future Scheduled 2021-02-11 DIABETIC FOOT EXAM [facility] Test 13:55:42 [code = DIABETIC FOOT EXAM] Future Scheduled 2021-02-11 COLONOSCOPY SCREENING [facility] Test 13:55:42 [code = COLONOSCOPY SCREENING] Future Scheduled 2021-02-11 SHINGLES VACCINES (#1) M [facility] Test 13:55:42 [code = SHINGLES VACCINES (#1)] Future Scheduled 2021-02-11 BREAST CANCER [facility] Test 13:55:42 SCREENING [code = BREAST CANCER SCREENING] Future Scheduled 2021-02-11 Screening for [facility] Test 13:55:42 malignant neoplasm of cervix (procedure) [code = 542344069] Future Scheduled 2021-02-11 INFLUENZA VACCINE Method ist [...] 00:00:00 [facility] (procedure) [code = 34014356] Future Scheduled 2020-08-[address] [facility] (procedure) [code = 94959332] Future Scheduled 2020-08-[address] [facility] 00[facility] (procedure) [code = 02357395] Future Scheduled 2020-08-[address] [facility] (procedure) [code = 79608129] Future Scheduled 2020-08-[address] [facility] 00[facility] (procedure) [code = 45785981] Future Scheduled 2020-08-[address] [facility] 00:[facility] (procedure) [code = 61522997] Future Scheduled 2020-08-[address] [facility] 00:[facility] (procedure) [code = 81901232] Future Scheduled 2020-08-[address] [facility] 00:[facility] (procedure) [code = 55046943] Future Scheduled 2020-08-[address] [facility] 00:[facility] (procedure) [code = 88666050] Future Scheduled 2020-08-[address] [facility] 00:[facility] (procedure) [code = 44498652] Future Scheduled 2020-08-[address] [facility] 00:[facility] (procedure) [code = 45259602] Future Scheduled 2020-08-[address] [facility] 00:[facility] measurement [facility] (procedure) [code = 82250331] Future Scheduled 2020-08-[address] [facility] 00:[facility] (procedure) [code = 18225272] Future Scheduled 2020-08-[address] [facility] 00:[facility] (procedure) [code = 45121650] Future Scheduled 2020-08-[address] [facility] 00:[facility] measurement [facility] (procedure) [code = 99592624] Future Scheduled 2020-08-[address] [facility] 00:[facility] measurement [facility] (procedure) [code = 26028710] Future Scheduled 2019-11-[address] [facility] breast (procedure) [code = 132222027] Future Scheduled 2019-11-[address] [facility] Test 00:00:00 [facility] breast (procedure) [code = 651685890] Future Scheduled 2019-11-[address] [facility] Test 00:00:00 [facility] breast (procedure) [code = 727860829] Future Scheduled 2019-11-[address] [facility] Test 00:00:00 [facility] breast (procedure) [code = 278290329] Future Scheduled 2019-11-[address] [facility] Test 00:00:00 [facility] breast (procedure) [code = 132988704] Future Scheduled 2019-11-[address] [facility] breast (procedure) [code = 888730868] Future Scheduled 2019-11-[address] [facility]:00 [facility] breast (procedure) [code = 410665981] Future Scheduled 2019-11-[address] [facility] 00:[facility]:00 [facility] breast (procedure) [code = 127617190] Future Scheduled 2019-11-[address] [facility]:00 [facility] breast (procedure) [code = 545600103] Future Scheduled 2019-11-[address] [facility]:00 [facility] breast (procedure) [code = 421182433] Future Scheduled 2019-11-[address] [facility] 00:[facility]:00 [facility] breast (procedure) [code = 873692884] Future Scheduled 2019-11-[address] [facility] 00:[facility]:00 [facility] breast (procedure) [code = 220698856] Future Scheduled 2019-11-[address] [facility]:00 [facility] breast (procedure) [code = 094718448] Future Scheduled 2019-11-[address] [facility] 00:00:00 [facility] breast (procedure) [code = 857463532] Future Scheduled 2019-11-[address] [facility] breast (procedure) [code = 007349218] Future Scheduled 2019-11-[address] [facility] 00:[facility]:00 [facility] breast (procedure) [code = 248264021] Future Scheduled 2018-06-[address] [...] 00:00:00 examination Medical Center (regime/therapy) [code = 647022472] Future Scheduled 1967-09-05 Urine screening for [facility] 00:[facility]:00 protein (procedure) [facility] Center [code = 927793986] Future Scheduled 1967-09-[address] EX[address] [facility] 00:00:00 [code = DIABETIC EYE Medical Center EXAM] Future Scheduled 1967-09-[address] [facility] 00:[facility]:00 examination [facility] Center (regime/therapy) [code = 403362214] Future Scheduled 1967-09-05 Urine screening for [facility] 00:00:00 protein (procedure) [facility] [code = 476752159] Future Scheduled 1967-09-[address] [facility] [facility] 00:00:00 [code = DIABETIC EYE [facility] Center EXAM] Future Scheduled 1967-09-[address] [facility] 00:[facility]:00 examination [facility] Center (regime/therapy) [code = 899319898] Future Scheduled 1967-09-05 Urine screening for [facility] 00:00:00 protein (procedure) [facility] Center [code = 862164424] Future Scheduled 1967-09-[address] DI[address]YE EXAM [facility] 00:00:00 [code = DIABETIC EYE Medical Center EXAM] Future Scheduled 1967-09-[address] [facility] 00:[facility]:00 examination [facility] Center (regime/therapy) [code = 703867336] Future Scheduled 1967-09-05 Urine screening for [facility] 00:00:00 protein (procedure) [facility] Center [code = 651128621] Future Scheduled 1967-09-[address] DI[address]YE EXAM [facility] 00:00:00 [code = DIABETIC EYE [facility] Center EXAM] Future Scheduled 1967-09-[address] [facility] 00:00:00 examination [facility] Center (regime/therapy) [code = 796297244] Future Scheduled 1967-09-05 Urine screening for [facility] 00:00:00 protein (procedure) [facility] Center [code = 912031660] Future Scheduled 1967-09-[address] DIAB[address]YE EXAM [facility] 00:00:00 [code = DIABETIC EYE Medical Center EXAM] Future Scheduled 1967-09-[address] [facility] 00:[facility]:00 examination [facility] Center (regime/therapy) [code = 420398831] Future Scheduled 1967-09-05 Urine screening for [facility] 00:00:00 protein (procedure) [facility] Center [code = 296241617] Future Scheduled 1967-09-[address] DI[address]YE EXAM [facility] 00:00:00 [code = DIABETIC EYE [facility] EXAM] Future Scheduled 1967-09-[address] [facility] 00:00:00 examination [facility] Center (regime/therapy) [code = 403578830] Future Scheduled 1967-09-05 Urine screening for [facility] 00:00:00 protein (procedure) [facility] Center [code = 323004540] Future Scheduled 1967-09-[address] DI[address]YE EXAM [facility] 00:00:00 [code = DIABETIC EYE [facility] EXAM] Future Scheduled 1967-09-[address] [facility] 00:00:00 examination [facility] Center (regime/therapy) [code = 385747263] Future Scheduled 1967-09-05 Urine screening for [facility] 00:00:00 protein (procedure) [facility] Center [code = 571921104] Future Scheduled 1967-09-[address] DIAB[address]YE EXAM [facility] 00:00:00 [code = DIABETIC EYE [facility] Center EXAM] Future Scheduled 1967-09-[address] [facility] 00:00:00 examination [facility] Center (regime/therapy) [code = 166342600] Future Scheduled 1967-09-05 Urine screening for [facility] 00:00:00 protein (procedure) [facility] Center [code = 701022287] Future Scheduled 1967-09-[address] DIAB[address] EYE EXAM [facility] 00:00:00 [code = DIABETIC EYE [facility] Center EXAM] Future Scheduled 1967-09-[address] [facility] 00:00:00 examination [facility] Center (regime/therapy) [code = 635094080] Future Scheduled 1967-09-05 Urine screening for [facility] 00:00:00 protein (procedure) [facility] Center [code = 979068440] Future Scheduled 1967-09-[address] DIAB[address] EYE EXAM [facility] 00:00:00 [code = DIABETIC EYE Medical Center EXAM] Future Scheduled 1967-09-05 Urine screening for [facility] 00:00:00 protein (procedure) [facility] Center [code = 804416350] Future Scheduled 1967-09-[address] DIAB[address] EYE EXAM [facility] 00:00:00 [code = DIABETIC EYE [facility] Center EXAM] Future Scheduled 1967-09-05 Urine screening for [facility] 00:00:00 protein (procedure) [facility] Center [code = 986024100] Future Scheduled 1967-09-[address] DIAB[address] EYE EXAM [facility] 00:00:00 [code = DIABETIC EYE Medical Center EXAM] Future Scheduled 1967-09-05 Urine screening for [facility] 00:00:00 protein (procedure) [facility] Center [code = 898148244] Future Scheduled 1967-09-[address] DIAB[address] EYE EXAM [facility] 00:00:00 [code = DIABETIC EYE Medical Center EXAM] Future Scheduled 1967-09-[address] [facility] 00:00:00 examination [facility] Center (regime/therapy) [code = 907046321] Future Scheduled 1967-09-05 Urine screening for [facility] 00:00:00 protein (procedure) [facility] Center [code = 748915106] Future Scheduled 1967-09-[address] DIAB[address] EYE EXAM [facility] 00:00:00 [code = DIABETIC EYE Medical Center EXAM] Future Scheduled 1967-09-[address] [facility] 00:00:00 examination [facility] Center (regime/therapy) [code = 935240107] Future Scheduled 1967-09-05 Urine screening for [facility] 00:00:00 protein (procedure) [facility] Center [code = 682274018] Future Scheduled 1967-09-[address] DIAB[address] EYE EXAM [facility] 00:00:00 [code = DIABETIC EYE Medical Center EXAM] Future Scheduled 1967-09-05 Urine screening for [facility] 00:00:00 protein (procedure) [facility] Center [code = 717994732] Future Scheduled [address] [facility] 00:00:00 [facility] colon (procedure) [code = 578914590] Future Scheduled [address] [facility] 00:00:00 [facility] colon (procedure) [code = 669551548] Future Scheduled [address] [facility] 00:00:00 [facility] colon (procedure) [code = 698683671] Future Scheduled [address] [facility] 00:00:00 (combo) [code = CT Medical C enter Colonography (combo)] Future Scheduled [address] [facility] 00:00:00 [facility] colon (procedure) [code = 009352152] Future Scheduled [address] [facility] 00:00:00 [facility] colon (procedure) [code = 426902787] Future Scheduled [address] [facility] 00:00:00 malignant [facility] colon (procedure) [code = 115644009] Future Scheduled [address] [facility] 00:00:00 [facility] colon (procedure) [code = 048864911] Future Scheduled 1957 S[facility]oid[facility] Future Scheduled [address] [facility] 00:00:00 (combo) [code = CT Medical C enter Colonography (combo)] Future Scheduled [address] [facility] 00:00:00 [facility] colon (procedure) [code = 797729085] Future Scheduled [address] [facility] 00:00:00 [facility] colon (procedure) [code = 599538921] Future Scheduled [address] [facility] 00:00:00 [facility] colon (procedure) [code = 477296006] Future Scheduled [address] [facility] 00:00:00 malignant [facility] colon (procedure) [code = 633747253] Future Scheduled 1957 S[facility]oidoscopy [facility] Future Scheduled [address] [facility] 00:00:00 (combo) [code = CT Medical C enter Colonography (combo)] Future Scheduled [address] [facility] 00:00:00 malignant [facility] colon (procedure) [code = 538332951] Future Scheduled [address] [facility] 00:00:00 malignant [facility] colon (procedure) [code = 871334314] Future Scheduled [address] [facility] 00:00:00 malignant [facility] colon (procedure) [code = 671425519] Future Scheduled [address] [facility] 00:00:00 [facility] colon (procedure) [code = 930810481] Future Scheduled 1957 [facility]oscopy [facility] Future Scheduled [address] [facility] 00:00:00 (combo) [code = CT Medical C enter Colonography (combo)] Future Scheduled [address] [facility] 00:00:00 [facility] colon (procedure) [code = 718898327] Future Scheduled [address] [facility] 00:00:00 malignant [facility] colon (procedure) [code = 661140593] Future Scheduled [address] [facility] 00:00:00 malignant [facility]oplasm [facility] colon (procedure) [code = 628245781] Future Scheduled [address] [facility] 00:00:00 malignant [facility] colon (procedure) [code = 954201577] Future Scheduled 1957 [facility]oscopy [facility] Future Scheduled [address] [facility] 00:00:00 (combo) [code = CT Medical C enter Colonography (combo)] Future Scheduled [address] [facility] 00:00:00 malignant [facility] colon (procedure) [code = 304661535] Future Scheduled [address] [facility] 00:00:00 malignant neoplasm of [facility] colon (procedure) [code = 847305863] Future Scheduled 1957 S[facility]oscopy [facility] Future Scheduled [address] [facility] 00:00:00 (combo) [code = CT Medical C enter Colonography (combo)] Future Scheduled [address] [facility] 00:00:00 [facility] colon (procedure) [code = 278029793] Future Scheduled [address] [facility] 00:00:00 malignant [facility]oplasm [facility] colon (procedure) [code = 825046234] Future Scheduled 1957 [facility] Future Scheduled [address] [facility] 00:00:00 (combo) [code = CT Medical C enter Colonography (combo)] Future Scheduled [address] [facility] 00:00:00 malignant [facility] colon (procedure) [code = 213687272] Future Scheduled [address] [facility] 00:00:00 malignant [facility]oplasm [facility] colon (procedure) [code = 013039018] Future Scheduled 1957 [facility]oscopy [facility] Future Scheduled [address] [facility] 00:00:00 (combo) [code = CT Medical C enter Colonography (combo)] Future Scheduled [address] [facility] 00:00:00 malignant [facility] colon (procedure) [code = 959587666] Future Scheduled [address] [facility] 00:00:00 malignant [facility] colon (procedure) [code = 407564799] Future Scheduled 1957 [facility]oidoscopy [facility] Future Scheduled [address] [facility] 00:00:00 (combo) [code = CT Medical C enter Colonography (combo)] Future Scheduled [address] [facility] 00:00:00 malignant ne[facility] colon (procedure) [code = 816831656] Future Scheduled [address] [facility] 00:00:00 malignant neoplasm [facility] colon (procedure) [code = 280675377] Future Scheduled 1957 [facility]oscopy [facility] [address] [facility] 00:00:00 (combo) [code = CT Medical C enter Colonography (combo)] Future Scheduled [address] [facility] 00:00:00 malignant neoplasm of [facility] colon (procedure) [code = 718788303] Future Scheduled [address] [facility] 00:00:00 malignant neoplasm of [facility] colon (procedure) [code = 932972799] Future Scheduled 1957 S[facility]oidoscopy [facility] [address] [facility] 00:00:00 malignant ne[facility] colon (procedure) [code = 222583576] Future Scheduled [address] [facility] 00:00:00 malignant [facility] colon (procedure) [code = 859095643] Future Scheduled [address] [facility] 00:00:00 (combo) [code = CT Medical C enter Colonography (combo)] Future Scheduled [address] [facility] 00[facility]00:00 malignant [facility] colon (procedure) [code = 127994887] Future Scheduled [address] [facility] 00:00:00 malignant neoplasm [facility] colon (procedure) [code = 588448292] Future Scheduled 1957 [facility]oidoscopy [facility]] Medical Cente r Encounters Start End Encounter Admission Attending Care Care Encounter Source Date/Time Date/Time Type Type Clinicians Facility Department ID 2021-07-06 Inpatient EL YEIMY, [facility] Surgery [id number] [facility] 14:33:12 HARSHINIE 2021-07-06 [facility] [id number] [facility]:00 Encounter [facility] 2021-07-06 [facility] [id number] [facility] 00:[facility]:00 Encounter [facility] 2018-09-18 Outpatient [id number] 08:26:04 2022-02-08 2022-02-08 [facility] [id number] 00:[facility]00 00:00:00 [facility] 2022-02-08 2022-02-08 [facility] [id number] 00:00:00 00:00:00 [facility] 2022-01-29 2022-01-29 Outpatient Nola FUENTES [facility] [id number] Univers 08:00:00 08:00:00 BRENDA nuñez o [facility] 2022-01-28 2022-01-28 Outpatient R DORIAN [facility] [id number] Univers 08:00:00 08:00:00 BRENDA diasy o [facility] 2022-01-11 2022-01-11 Outpatient R DORIAN [facility] [id number] Univers 15:40:00 15:40:00 BRENDA nuñez o [facility] 2021-12-24 2021-12-24 Outpatient Nola HAYDEN [facility] [id number] Univers 15:40:00 15:40:00 PETER [facility] 2021-12-15 2021-12-15 Orders Doctor KRZYSZTOF 1.2.840.114 [id number] Univers 00:00:00 00:00:00 Only Unassigned, DEEDEE 350.1.13.10 ity of [place] [facility] [id number] Socrates as [id number] [address] 2021-12-08 2021-12-08 Refill [facility] 1.2.840.114 [id number] Univers 00:00:00 00:00:00 Fracisco GACRIA 350.1.13.10 i [id number] [phone] Ne dical NAL 044 [facility] 2021-12-08 2021-12-08 Telephone [facility] [id number] Univers 00:00:00 00:00:00 Brenda GARCIA [id number] [place]y of [id number] [phone] Ne dical NAL 059 [facility] 2021-11-27 2021-11-27 Outpatient ROGER KAUR [facility] [id number] Univers 15:00:00 15:00:00 ROGER ARAUJO [facility] 2021-11-24 2021-11-24 [address]840.114 [id number] Univers 00:00:00 00:00:00 Fracisco GARCIA [id number] i [id number] [phone] Ne dical NAL 044 [facility] 2021-11-16 2021-11-16 Telephone [facility] 12.840.114 [id number] Univers 00:00:00 00:00:00 Fracisco GARCIA [id number] i [id number] [id number] Ne dical NAL 044 [facility] 2021-11-10 2021-11-10 Outpatient ROGER KAUR [facility] [id number] Univers 08:00:00 08:00:00 ROGER ARAUJO [facility] 2021-10-23 2021-10-23 Outpatient R DORIAN, [facility] [id number] Univers 08:20:00 08:20:00 BRENDA blue [facility] 2021-10-21 2021-10-21 Orders Doctor KRZYSZTOF 1.2.840.114 [id number] Univers 00:00:00 00:00:00 Only Unassigned, DEEDEE 350.1.13.10 ity of [facility] [id number] Socrates as [phone] [address] 2021-10-20 2021-10-20 [facility] 1.2.059.286 [id number] Univers 00:00:00 00:00:00 Brenda GARCIA [id number] [id number] [phone] Ne dical NAL [address] [place] [address] 2021-10-13 2021-10-13 Outpatient R ROGER ARAUJO [facility] [id number] Univers 08:40:00 08:40:00 ROGER ARAUJO [facility] 2021-09-29 2021-09-29 Outpatient R DORIAN, [facility] [id number] Univers 15:00:00 15:29:27 BRENDA blue [facility] 2021-09-29 2021-09-29 Office [facility] 1.2.840.114 [id number] Univers 15:00:00 15:29:27 Visit Brenda GARCIA 350.1.13.10 [id number] [phone] Ne dical NAL [address] [place] [address] 2021-09-29 2021-09-29 [facility] [id number] Univers 15:00:00 15:29:27 BRENDA diaszenia honorio [facility] 2021-09-29 2021-09-29 [facility] 1..840.114 [id number] Univers 15:00:00 15:29:27 Visit Brenda GARCIA 350.1.13.10 [id number] [phone] Ne dical NAL 059 [facility] 2021-09-29 2021-09-29 Outpatient Nola DORIAN [facility] [id number] Univers 15:00:00 15:00:00 BRENDA nuñez o f [facility] 2021-09-29 2021-09-29 Telephone [facility] 1.2.840.114 [id number] Univers 00:00:00 00:00:00 Fracisco GARCIA 350.1.13.10 i ty [id number] [phone] Ne dicms NAL 044 [facility] 2021-09-24 2021-09-24 Telephone [facility] 1.2.840.114 [id number] Univers 00:00:00 00:00:00 Fracisco GARCIA 350.1.13.10 i [id number] [phone] Ne dicms NAL 044 [facility] 2021-09-22 2021-09-22 Outpatient ROGER KAUR [facility] [id number] Univers 15:00:00 15:00:00 ROGER ARAUJO zenia [facility] 2021-09-22 2021-09-22 Outpatient ROGER KAUR [facility] [id number] Univers 15:00:00 15:00:00 ROGER ARAUJO zenia [facility] 2021-09-18 2021-09-18 Orders Doctor STEARNS 1.2.840.114 [id number] Univers 00:00:00 00:00:00 Only Unassigned, DEEDEE 350.1.13.10 ity of [facility] 4.2.7.2.686 Socrates as [phone] [address] 2021-09-17 2021-09-17 Telephone [facility] 1.2.840.114 [id number] Univers 00:00:00 00:00:00 Fracisco GARCIA 350.1.13.10 i ty [place] [id number] [address] 2021-09-17 2021-09-17 Telephone [facility] 1.2.840.114 [id number] Univers 00:00:00 00:00:00 Fracisco GARCIA 350.1.13.10 i ty [place] [id number] [address] 2021-09-14 2021-09-14 Telephone [facility] 1.2.840.114 [id number] Univers 00:00:00 00:00:00 Fracisco GARCIA 350.1.13.10 [place] [id number] [address] 2021-09-14 2021-09-14 [facility] 1.2.840.114 [id number] [facility] 00:00:00 00:00:00 Fracisco GARCIA 350.1.13.10 [place] [phone] [address] 2021 2021 Outpatient R [facility] [id number] [facility] 10:00:00 12:16:20 FRACISCO nuñez [facility] 2021 2021 Office [facility] 1.2.840.114 [id number] [facility] 10:00:00 12:16:20 Visit Fracisco GARCIA 350.1.13.10 i ty [place] [id number] [address] 2021 2021 Office [facility] 1.2.840.114 [id number] [facility] 10:00:00 12:16:20 Visit Fracisco GARCIA 350.1.13.10 i ty [place] [phone] Ne adam GUADARRAMA [address] [place] [address] 2021 2021 Office [facility] 1.2.840.114 [id number] Univers 10:00:00 12:16:20 Visit Fracisco GARCIA 350.1.13.10 i ty [place] [phone] Ne adam [address] 2021 2021 Outpatient R [facility] [id number] Univers 10:00:00 12:16:20 FRACISCO zenia [facility] 2021 2021 Information Assistant Lab, Ang - Db [facility] 1.2.840.1 [id number] Univers 10:45:00 11:00:00 Visit Adele Chester [facility] 350.1.13.10 ity [facility] [id number] Socrates as SUAD?BLEA [phone] [facility] [address] [place] [address] OFFICE [facility] 2021 2021 Outpatient R [facility] [id number] Univers 10:00:00 10:00:00 FRACISCO nuñez [facility] 2021 2021 Telephone [facility] 1.2.840.114 [id number] Univers 00:00:00 00:00:00 Fracisco GARCIA 350.1.13.10 i [id number] [phone] Ne dante[address] 2021 2021 Telephone [facility] 1.2.840.114 [id number] Univers 00:00:00 00:00:00 Fracisco GARCIA 350.1.13.10 i [facility] [id number] [id number] Ne dante[address] 2021 2021 Telephone [facility] 1.2.840.114 [id number] Univers 00:00:00 00:00:00 Fracisco GARCIA 350.1.13.10 i [id number] [phone] Ne dical NAL [address] [place] [address] 2021 2021 Patient Mendez [facility] 1.2.840.114 [id number] Univers 00:00:00 00:00:00 Outreach Jami Guevara RADHA 350.1.13.10 ity of [id number] [id number] Ne dical NAL [address] [place] [address] 2021 2021 Telephone [facility] 1.2.840.114 [id number] Univers 00:00:00 00:00:00 Fracisco GARCIA 350.1.13.10 i ty [id number] [phone] Ne dical NAL [address] [place] [address] 2021 2021 Patient Mendez [facility] 1.2.840.114 [id number] Univers 00:00:00 00:00:00 Outreach Jami Guevara RADHA 350.1.13.10 ity of [id number] [id number] Ne dicms NAL [address] [place] [address] 2021 2021 Telephone [facility] 1.2.840.114 [id number] Univers 00:00:00 00:00:00 Fracisco GARCIA 350.1.13.10 [place] [place] [phone] Ne dical NAL [address] [place] [address] 2021 2021 Orders Doctor KRZYSZTOF 1.2.840.114 [id number] Univers 00:00:00 00:00:00 Only Unassigned, DEEDEE 350.1.13.10 ity of [place] [facility] 4.2.7.2.686 Socrates as [phone] [address] 2021 2021 Patient Mendez [facility] 1.2.840.114 [id number] Univers 00:00:00 00:00:00 Outreach Jami GARCIA 350.1.13.10 it[place] of [place] [id number] Ne danteal NAL 044 [facility] 2021-09-03 2021-09-03 Telephone [facility] 1.2.238.347 [id number] Univers 00:00:00 00:00:00 Liz PRIMARY 350.1.13.10 it y of [place] [phone] Ne dical [address] 2021-08-28 2021-08-28 Outpatient R NEMO [facility] [id number] Univers 16:30:00 17:19:04 ADELE ity [facility] 2021-08-28 2021-08-28 Office Nemo [facility] 1.2.840.114 [id number] Univers 16:30:00 17:19:04 Visit Critical access hospital 350.1.13.10 it y of [place] 4.2.7.2.686 Socrates as SUAD?BLEA [phone] [address] MEDICAL OFFICE [facility] 2021-08-19 2021-08-19 Telephone [facility] 1.2.840.114 [id number] Univers 00:00:00 00:00:00 Melissa PRIMARY 350.1.13.10 it[place] of [place] [phone] Ne dical [address] 2021-08-19 2021-08-19 Telephone [facility] 1.2.840.114 [id number] Univers 00:00:00 00:00:00 Melissa PRIMARY 350.1.13.10 it[place] of [place] [phone] Ne dical [address] 2021-08-19 2021-08-19 Telephone [facility] 1.2.840.114 [id number] Univers 00:00:00 00:00:00 Melissa PRIMARY 350.1.13.10 it[place] of [place] [id number] Ne dical [address] 2021-08-13 2021-08-13 [facility] 1.2.840.114 [id number] Univers 00:00:00 00:00:00 Melissa PRIMARY 350.1.13.10 it[place] of [place].2.[place] [id number] Ne dical [address] 2021-08-10 2021-08-10 [place] [facility] 1.2.840.114 [id number] Univers 00:00:00 00:00:00 Melissa PRIMARY 350.1.13.10 it[place] of [place] [phone] Ne dical [address] 2021-08-10 2021-08-10 Telephone [facility] [id number] [facility] 00[facility]00 [facility] 2021-08-10 2021-08-10 Telephone [facility] [id number] [facility] 00:[facility] 00:[facility]:00 [facility] 2021-08-07 2021-08-07 Outpatient SHASHANK MENDIOLA, [facility] [id number] [facility] 00:00:00 00:00:00 NADYA 2021-07-28 2021-07-28 Telephone [facility] 1.2.840.114 [id number] Univers 00:00:00 00:00:00 Melissa PRIMARY 350.1.13.10 it[place] of [place] [phone] Ne dical [address] 2021-07-25 2021-07-25 Letter Neurology [facility] 1.2.048.960 [id number] Univers 00:00:00 00:00:00 (Out) HEALTH 350.1.13.10 it y of [place] [phone] [facility] [address] OFFICE BUILDING 2021-07-17 2021-07-17 Telephone Billy Lu [facility] 1.2.840.114 [id number] Univers 00:00:00 00:00:00 Melissa PRIMARY 350.1.13.10 ity of [place].2.[place] [phone] Ne dical [address] 2021-07-13 2021-07-13 Transition DAKOTA Kilpatrick 1.2.840.114 [id number] Univers 00:00:00 00:00:00 of Care Blanka DE [place] ROS[place] 350.1.13.10 i ty of [place] [phone] [facility] [address] 2021-07-13 2021-07-13 Telephone Billy Lu [facility] 1.2.840.114 [id number] Univers 00:00:00 00:00:00 Melissa PRIMARY 350.1.13.10 ity of [place].2.[place] [phone] Ne dical [address] 2021-07-06 2021-07-10 Inpatient U BILLY LU [facility] NILESH [id number] Univers 20:21:00 18:16:00 ity of [facility] 2021-07-06 2021-07-10 [facility] Billy Lu 1.2.840.114 [id number] Univers 20:21:00 18:16:00 Encounter Melissa HERMANY 350.1.13.10 ity of [facility] 4.2.7.2.686 Socrates as [phone] [facility] [address] 2021-07-07 2021-07-07 Surgery Kenny [facility] 1.2.378.844 [id number] Univers 14:30:00 15:30:00 Joss ICAL 350.1.13.10 it y of SCIENCES 4.2.7.2.686 Socrates as BLDG [phone] [facility] [address] 2021-07-06 2021-07-06 Outpatient R [facility] [id number] Univers 10:30:00 10:30:00 ADELE ity [facility] 2021-06-072021-07-04 [facility] [id number] 19:44:00 14:34:00 Encounter Patricia Kuonharun [facility], [facility], [facility], [facility], [facility] Logan Russo 2021-06-07 2021-07-04 [facility] [id number] 19:44:00 14:34:00 [facility], [facility], [facility], [facility], Logan Yao 2021-06-07 2021-07-04 Inpatient ER LOGAN RUSSO [facility] Surgery [id number] SLEH 19:44:00 14:34:00 2021-07-03 2021-07-03 Surgery Amluis [facility] [id number] 15:05:00 16:05:00 Mayoinijaden Monteiro s [facility] 2021-07-03 2021-07-03 Surgery Yeimy [facility] [id number] 15:05:00 16:05:00 Mayoinijaden Monteiro s [facility] 2021-07-03 2021-07-03 Anesthesia Mitchel [facility] [id number] [id number] 14:49:00 15:35:00 Event [facility] 2021-07-03 2021-07-03 Anesthesia Mitchel [facility] [id number] 14:49:00 15:35:00 Event [facility] 2021-06-30 2021-06-30 Surgery Krzysztof Dodd [facility] [id number] 19:35:00 22:24:[address] [facility] 2021-06-30 2021-06-30 Surgery Krzysztof Dodd [facility] [id number] 19:35:00 22:24:[address] [facility] 2021-06-26 2021-06-26 Surgery Krzysztof Dodd [facility] [id number] 07:30:00 11:59:[address] [facility] 2021-06-25 2021-06-25 Anesthesia Marissa [facility] [id number] [id number] 23:59:59 23:59:59 Event [facility] 2021-06-25 2021-06-25 Anesthesia Marissa [facility] [id number] [id number] 23:59:59 23:59:59 Event [facility] 2021-06-18 2021-06-18 Anesthesia Asad Santana [facility] [id number] [facility] 07:58:00 14:52:00 Event [facility] 2021-06-18 2021-06-18 Anesthesia Asad Santana [facility] [id number] [facility] 07:58:00 14:52:00 Event [facility] 2021-06-18 2021-06-18 Surgery RussoLogan [facility] [id number] [id number] 08:00:00 14:45:00 [facility] 2021-06-18 2021-06-18 Surgery BethLogan [facility] [id number] [id number] 08:00:00 14:45:00 [facility] 2021-06-16 2021-06-16 Anesthesia Sade Argueta [facility] [id number] 11:58:00 13:03:00 [facility] 2021-06-16 2021-06-16 Anesthesia Sade Argueta [facility] [id number] 11:58:00 13:03:00 [facility] 2021-06-16 2021-06-16 Surgery Donte [facility] [id number] 10:30:00 12:00:00 [facility] 2021-06-16 2021-06-16 Surgery Donte [facility] [id number] 10:30:00 12:00:00 [facility] 2021-06-09 2021-06-09 Outpatient B[facility] [id number] [facility] 00:00:00 23:59:00 Colleg e of Medicin e 2021-06-08 2021-06-08 Committee Twin [facility] 1.2.840.114 [id number] [facility] 00:00:00 00:00:00 Review Bertrand Ivy MULTISPEC 350.1.13.10 itLorenzo 4.2.7.2.686 [facility] [id number] [facility] AND [address] DIABETES CLINIC 2021-06-07 2021-06-07 Outpatient BCM [facility] [id number] [facility] 19:44:00 23:59:00 Colleg e of Medicin e 2021-06-07 2021-06-07 Orders [facility] [id number] 00:00:00 00:00:00 [facility] 2021-06-07 2021-06-07 Travel [facility] [id number] [facility] 00:00:00 00:00:00 [facility] 2021-06-07 2021-06-07 Orders [facility] [id number] 00:00:00 00:00:00 [facility] 2021-06-07 2021-06-07 Travel [facility] [id number] [facility] 00:00:00 00:00:00 [facility] 2021-05-26 2021-05-26 Mauricio Hudson [facility] [id number] 00:00:00 00:00:00 [facility] 2021-05-26 2021-05-26 Transition DAKOTA Bennett 1.2.840.114 [id number] Univers 00:00:00 00:00:00 of Care Rakan B [place] 350.1.13.10 it [place] [id number] [facility] [address] 2021-05-26 2021-05-[address] [facility] [id number] [facility] 00:00:00 00:00:00 [facility] 2021-05-25 2021-05-25 Transition DAKOTA Bennett 1.2.840.114 [id number] Univers 00:00:00 00:00:00 of Care Rakan B [place] 350.1.13.10 [place] [id number] [facility] [address] 2021-05-15 2021-05-[address] [facility] NILESH [id number] Univers 13:03:00 21:15:00 NEIL ity of [facility] 2021-05-15 2021-05-22 [facility] Dangelo Ibrahim [facility] 1.2.840.1 [id number] Univers 13:03:00 21:15:00 Encounter Neil Thomas 350.1.13.10 ity of [place]2.[place]TH[place] [id number] [facility] [address] 2021-05-15 2021-05-22 Inpatient X RYANNEJAMES [facility] NILESH [id number] Univers 13:03:00 21:15:00 NEIL ity of [facility] 2021-05-18 2021-05-18 Patient [facility] 1.2.840.114 [id number] Univers 00:00:00 00:00:00 Outreach [facility] 350.1.13.10 i ty of [place] 4.2.7.2.686 Socrates as SUAD?BLEA [id number] Ne adam [address] MEDICAL OFFICE BUILDING 2021-05-18 2021-05-18 Telephone Twin [facility] 1.2.840.114 [id number] Univers 00:00:00 00:00:00 Bertrand Ivy MULTISPEC 350.1.13.10 ity of [place].2.[place].2.686 [place] CENTER [id number] [address] DIABETES CLINIC 2021-05-15 2021-05-15 Office [facility] 1.2.840.114 [id number] Univers 11:00:00 12:33:54 Visit Adele [facility] 350.1.13.10 it y of [place] 4.2.7.2.686 Socrates as SUAD?BLEA [id number] [address] OFFICE [facility] 2021-05-15 2021-05-15 [facility] [id number] Univers 11:00:00 12:33:54 ADELE nuñez [facility] 2021-05-15 2021-05-15 [facility] [id number] Univers 11:00:00 11:00:00 ADELE nuñez [facility] 2021-05-15 2021-05-15 Telephone [facility] [id number] [id number] Univers 00:00:00 00:00:00 Adele [facility] 350.1.13.10 it y of [place] 4.2.7.2.686 Socrates as SUAD?BLEA [id number] [address] OFFICE [facility] 2021-05-15 2021-05-15 [facility] 1.2.490.163 [id number] Univers 00:00:00 00:00:00 [facility] 350.1.13.10 it y [facility] 4.2.7.2.686 Socrates as SUAD?BLEA [id number] [address] OFFICE [facility] 2021-04-07 2021-04-07 Telephone [facility] 1.2.840.114 [id number] Univers 00:00:00 00:00:00 Bertrand Ivy MULTISPEC 350.1.13.10 ity of [place].2.[place].2.686 [place] CENTER [id number] [address] DIABETES CLINIC 2021-03-25 2021-03-25 Telephone [facility] 1.2.840.114 [id number] Univers 00:00:00 00:00:00 Bertrand Ivy MULTISPEC 350.1.13.10 ity of IALTY 4.2.7.2.686 [facility] [id number] [facility] [address] DIABETES CLINIC 2021-03-19 2021-03-19 Telephone [facility] 1.2.840.114 [id number] Univers 00:00:00 00:00:00 Bertrand Ivy MULTISPEC 350.1.13.10 ity of IALTY 4.2.7.2.686 [facility] [id number] [address] DIABETES CLINIC 2020-08-28 2020-08-28 Orders Fuentes [facility] [id number] 00:00:00 00:00:00 Only [facility] 2020-08-28 2020-08-28 Abstract Fuentes [facility] [id number] 00:00:00 00:00:00 [facility] 2020-08-06 2020-08-06 Telephone Freddie [facility] [id number] 00:00:00 00:00:00 [facility] 2020-08-06 2020-08-06 Documentcalli Frazier [facility] [id number] 00:00:00 00:00:00 [facility] 2020-08-06 2020-08-06 Abstract Freddie [facility] [id number] 00:00:00 00:00:00 [facility] 2020-08-04 2020-08-04 Documentcalli Frazier [facility] [id number] [id number] 00:00:00 00:00:00 [facility] 2020-07-31 2020-07-31 Outpatient [facility]AS [facility] [id number] Univers 10:00:00 10:00:00 ity of [facility] 2020-07-28 2020-07-28 Documentcalli Frazier [facility] [id number] 00:00:00 00:00:00 [facility] 2020-07-28 2020-07-28 [facility] [id number] 00:00:00 00:00:00 [facility] 2020-07-25 2020-07-25 Documentat [facility] [id number] 00:00:00 00:00:00 [facility] 2020-07-24 2020-07-24 [facility]at [facility] [id number] 00:00:00 00:00:00 [facility] 2020-07-24 2020-07-24 Documentat [facility] [id number] 00:00:00 00:00:00 [facility] 2020-07-24 2020-07-24 Abstract [facility] [id number] 00:00:00 00:00:00 [facility] 2020-07-22 2020-07-22 Outpatient Nola HUBBARD [facility] [id number] Univers 09:30:00 09:30:00 [facility] 2020-04-24 2020-04-24 Outpatient Nola HUBBARD [facility] [id number] Univers 10:45:00 10:45:00 [facility] 2020-04-16 2020-04-16 Office Arnaudgarnet [facility]alt[facility]osin[facility] 1.2.920.689 [id number] 12:56:21 13:26:21 Visit Alanis Garcia 350.1.13.10 [place] 4.2.7.2.686 [facility] [id number] [address] 2020-04-16 2020-04-16 Outpatient Nola CROSS [facility] [id number] Univers 13:15:00 13:15:00 ALANIS [facility] 2019-02-18 2019-02-[address] [id number] Memoria 03:46:00 22:27:00 Inpatient r [facility] TE[facility] 2019-01-26 2019-01-26 Departed Fidel Fuentes [id number] [facility] 01:39:00 06:10:00 Emergency r [facility] EMERGENCY DEPT 2018-10-09 2018-10-11 Discharged Fidel Fuentes [id number] [facility] 09:44:00 21:45:00 Inpatient r [facility] [address] [facility] Patsy 2018-01-22 2018-01-22 Emergency E MHSE [facility]SE [id number] 16:17:00 16:17:[address] [facility] Results Test Description Test Time Test Comments Results Result Comments Source AFB culture + smear (non-sputum) 2021-08-07 10:55:07 Test Item Value Reference Range Interpretation Comme nts Result (test code = 6463-4) No acid-fast bacilli isolated in 42 day s AFB Smear (test code = 21335-9) No acid fast bacilli [facility]2021-08-07 10:55:07 Test Item Value Reference Range Interpretation Comments Result (test code = No acid-fast bacilli 6463-4) isolated in 42 days AFB Smear (test code = No acid fast bacilli 94680-0) [facility] (non-sputum)2021-08-07 10:55:07 Test Item Value Reference Range Interpretation Comments Result (test code = No acid-fast bacilli 6463-4) isolated in 42 days AFB Smear (test code = No acid fast bacilli 55860-9) seen [facility] (non-sputum)2021-08-07 10:55:07 Test Item Value Reference Range Interpretation Comments Result (test code = No acid-fast bacilli 6463-4) isolated in 42 days AFB Smear (test code = No acid fast bacilli 10658-9) seen [facility] + SMEAR (NON-SPUTUM)2021-08-07 10:55:07 Test Item Value Reference Range Interpretation Comments CULTURE (BEAKER) (test No acid-fast bacilli code = 1095) isolated in 42 days AFB SMEAR (BEAKER) No acid fast bacilli (test code = 994) seen Fungus culture + [id number] 01:03:45 Test Item Value Reference Range Interpretation Comments Result (test code = No fungus isolated in 6463-4) 28 days Fungus Smear (test No fungi seen code = 1406) [facility] + [id number] 01:03:45 Test Item Value Reference Range Interpretation Comments Result (test code = No fungus isolated in 6463-4) 28 days Fungus Smear (test No fungi seen code = 1406) [facility] + [id number] 01:03:45 Test Item Value Reference Range Interpretation Comments Result (test code = No fungus isolated in 6463-4) 28 days Fungus Smear (test No fungi seen code = 1406) [facility] + [id number] 01:03:45 Test Item Value Reference Range Interpretation Comments Result (test code = No fungus isolated in 6463-4) 28 days Fungus Smear (test No fungi seen code = 1406) [facility] + [id number] 01:03:45 Test Item Value Reference Range Interpretation Comments Result (test code = No fungus isolated in 6463-4) 28 days Fungus Smear (test No fungi seen code = 1406) [facility] + [id number] 01:03:45 Test Item Value Reference Range Interpretation Comments Result (test code = No fungus isolated in 6463-4) 28 days Fungus Smear (test No fungi seen code = 1406) [facility] + [id number] 01:03:45 Test Item Value Reference Range Interpretation Comments CULTURE (BEAKER) (test No fungus isolated in code = 1095) 28 days FUNGUS SMEAR (BEAKER) No fungi seen (test code = 1406) TISSUE [id number] 12:44:09Surgical Pathology Report Case: [id number] Authorizing Provider: Logan Russo MD Collected: 06/18/2021 11:41 AM Ordering Location: [facility] Received: 06/19/2021 03:44 PM PERIOPERATIVE SERVICES P athologist: Tom Paige MD Specimen: Mass, MITRAL VALVE MASS- for MICROBIOLOGY then plssend to Pathology Special stains for acid fast bacilli are negative. Gram stain and GMS stain highlight possible bacterial aggregates. Correlation with microbiological studies is required for further coe bclassification. Addendum electronically signed by Tom Paige MD on 07/09/2021 at 12:44 PMA. HEART, MITRAL VALVE, DEBRIDEMENT AND REPAIR:FIBRIN, ACUTE INFLAMMATORY AGGREGATE AND CALCIFICATION.SPECIAL STAINS FOR INFECTIOUS ORGANISMS PENDING, ADDENDUM TO FOLLOW. CORRELATION WITH MICROBIOLOGICAL STUDIES IS RECOMMENDED. Signing Pathologist Direct Phone Line: [phone] signed by Tom Paige MD on 06/24/2021 at 3:29 [id number], [id number] valvePerformed.The interpretation of this case included the use of immunohistochemistry or special stains.BLOCK A1- BROWN AND NORMA JOHNSON, AFBControl Slides Examined: In-house known positive controls were evaluated along with the test tissue. These control slides run alongside of the patients sample show appropriate staining. Internal positive and negative controls when available are evaluated Immunohistochemistry technical testing was performed at [facility], Pathology Laboratory where it was [...] under the Clinical Laboratory Improvement Amendments of 1988(CLIA-88) as qualified to perform high complexity clinical laboratory testing.[facility], Department of Pathology, [address] [place] [address] 94102, [facility], [facility] of [facility]ology, [address] [place] [address] 8[address]18, [facility]hencxUCSF [facility], Department of Pathology, [address] [place] [address] 28430, a. Received in formalin labeled with the patient's information and "mitral valve mass" is a 1.5 cm in length by 0.3 cm in diameter robert-pink tissue, which is submitted in toto in cassette A1.MP (resident)Tissue [id number] 09:50:09 Test Item Value Reference Range Interpretation Comments Case Report (test code Surgical Pathology = 104) Report Case: [id number] Authorizing Provider: Camachojaden Angela Collected: 07/03/2021 03:04 PM MD Brian Ordering Location: [address] Received: 07/06/2021 09:08 AM Service Pathologist: [...] clip x 1 DIAGNOSIS (test code = [id number] 3220) FuZzEwMzNcZnRuYmpcdWMx IHtccnRmMVxlcGljOTYwMV tmijYuNBGyhZScF0Qejuul YXznJD1tZX9xgWxmjPEmpK CeHEVeEbPfc0uta665oUSa d8uaVNTNrvkqvCv5nRwtZ9 1kk2L7EgdmF46vmNKsEFW2 XCSiRFSlqXDnZNCrJGD7TE RtzYKkG0gtVOWnNT7jptyg YHzwEBuzWWXouSX6TFGgsH BzN6YlPBOuVPivWDZbrwc4 ZhJzYv9mdGYueAdjRUnsIJ IwZNXfWOctRSAuSzTkWU1f I83SK53rBGPVI7HKESHLVV hNHFONSY9NX4n7DYZhvyTg LSAgVFVCVUxBUiBBREVOT0 1CEXFmzmakQEPfHe8kF35L Z20pQIQUK3nKT5ANI1LJNM tNMoWDI8yMLGpuCsgHDNVN OdpdNTErEN0bMI5QUAYXNH bTNBYCXSxNTT3RFbOJXyMR MPTHOOKAYRCSTY6NIATqlA FyICAtICBORUdBVElWRSBG B4UkYCnPJS5EHyXLPIAQET ISAERGUWBbB0DkLQWKVGrL ES9HWBylSKCczBCpYHUwCC COMC8NQYPTIDvTNK8NY4CD BjIPDykyGC0HWFPjDBXND8 BTWTpccGFyICAtICBNVUxU SVBMRSBGUkFHTUVOVFMgT0 KyCWJXIPtMHtLTVODOP03Q XHBhciAgLSAgTkVHQVRJVk OxAm7UUSyDU4dnY7DEORWt IQmEMPzBO1rPFB0PYM6DWK xCPjIAX9ibtCCjIFLcclZw kXXfVDGsALIFKX3VECHKXd NGN0PHQnPASZKYSLmYHPGN JW3QK1s3IMDcnsHqRAXzZX DYENoSAYWaWvAQV84MNxLQ BT4OEROBAxIQBXBvMPQIDg 3EOIotTRLeXH3iRH5EZ8JV SVZFIEZPUiBISUdILUdSQU ONTKTGF0BJIJDPHRANJtLK OQcPO81ESyFXXQQvbi97JH J5EmCer3T3LID5PTSfYVBt g5gwAABbnKNwFqGgCuBqOa GdGmamiNFqVJZcRgVak4vj f533wNEpz7ouQXQwQtC1mW PpYXJtqQZjY462QXVvCFpz u0tuo6VrBZKsbSOif1W4EL QAjdjexNg3jYtaF10ae4O4 NxmxU9bmHAArGTAqK3WwXM 7nVIFrBax6RPZ1YUJ3MYKc KNSyI7ZxIE9rMHNnwLSjXA i7l5fhkBnyCJOfTLB8n3mi OPhaupAdKH6tnn1lzOn4n0 xjczEgRGVmYXVsdCBQYXJh T2VijJsyZb1guIy3qSfbXp djVED0Zpv3CP6vda72rhk7 kOrmFEXtgtglIvK4UEnoPO HndrqzLOq6MJvpXLCplYL4 CLQjtKUaC1XhDRWhZF3kja f7HMC5ETxfJKBvYkD8FXPg oXUdIRSqeLbcFIgsx016MB X8QvRbIB0uG1Oru0U8yL7k aXRcZGVmdGFiNzIwXGZvcm 2bcYTeYMpnm5WsVVJ3usM1 sMBfrHJhOODqKdN5QZdwYK 7wky78QIJkJTP0hz0nlVVi iIpazeQbuGPcQLggI1XiAI Byg349QNCtL8RyBKLdm7M1 kvQmWfBjIBZqsWW8btZ8JI VgBM5qrcwyz5laISjwSJaq CRPymmH2ztD8IUJqpHNbN0 RnqA0bKDBwBE5pcnpch5ci QNG9GOseFYJrRFQ3HfSgHB Wuz6Ggdcx2KvHfs2HvdPKa TGbfE17nx387PNJqaqHrM0 xwbGFpblxwbGFpblxmMFxm gbO9LZSdCGexandeSGBbMU ezT8uyNsUyZHCsuLziHNfj o0KmDASeXAJaNyMisMTsTY YlNkh5HLWrbISlUEQoPtDx Y1grsduuQcGHUDHjt5xdV4 hufRPVyHTbK5JzKShnhzFe OVyjYXspDVBuRYQ3FT0kZI DlTXXjmj16 CPT Code(s) (test code m5eypKXjDHKjpYD2SoOxFO = 3357) Jpr8otx6GpqUKfjTKqBWoa aVFeorXutb76lGW4fM18LI 4gABIvStM0VIChcrW6Eqs9 HEZwOWQhhFZoB994c5blq6 dlkrYarBU5mLgfVXClxovh BhM5CBvhYWVedbtdCVe3HG jvPUVuoZW7XAOxyNOrI8Wg EBJvRJ7cfwu7NXV1CRbfFP SyPjG7NRQevXTjEBYjhJpq FLruq413EZJ3SvIfACEtbb RhqUlorA4nZzBeANA1XSWv VBz1SKQcni8= CLINICAL HISTORY (test h5ywxLEoFTMqxWM6EaFaYE code = 3356) Ssl8meb6KrwHXjwIMqHGia dFHnzsGgjm60bFC3jZ01AQ 8bGVRmHtG9CXPhlsK5Elu2 SIIlWOIbiNMsG790o3nby7 njigNknZM2CAGfAXFmP6Wu BM2oHJQcfCGkT02giTIwEM U7WLCrKHRuzEYoGHUqNZR5 JKGrnNWmR1wcFIVlKZ1eds meDEdsGQfqBIVhtJH2UXQr bTBoX5QdHSApPTmjBVRctb n9BxZrBk5bfYSdeLgcSKsk YXJkXHJpMVxwbGFpblxmcz GnTKWdKSOKis3aNMZtOkyi oJJsA8czWL2fzGnjNFX2za QmMLLdFizxLGAkkq5tEUIv VauywBHuA3hwDP0wyZlsJY H3mHEkNKZthj1= GROSS DESCRIPTION (test d0ofkUTsIVKzgCBLWGSmXy code = [id number]) jetxTyVXOkeRTpO3Lvfemb SXttHZ0hPG8guEwmmFYueT VmTV7GTVCtUwGvOHNfpLEi czGiRoTzSEVepXNliTQ2IU HwUE8wzjcuKPfzPGscFJQp dhW2FCIqmMUnL1KiUNVcGF 6kqjhuANX0FUguvV6uslVX TvevKf8hpGUvxJbyXrDjUw NoYXJzZXQwXGZuaWwgQXJp EVf9oG2PCxcdN57lg2L6Yd y1ZDFrGFVuA0JfYO6uSEPj sCQfR49TWpqpHGM4UGIBPt mtIFHiDU3Bt5nlUOTumQOc WPA4DDcljRFtATOaINEhGL s7NXKaEFklcHJhFP4eePtr BomdlHqmc3AnqDGsCLiiJF AoKIKbGCxgLONgMY2IMsJw OXePVwslJIxpRrN7XOj4JP RORiNrZvKqLcejELU0KZpu AWi6EBt1FWfGMpE6KYP2YZ BwURuoFDHxJbywLEd8UJYq XFxmIEFyaWFsIFxcZmwgXF jpM43nuFdfvQ2bZV2cCU4o cIQsPXHpqM5dQO2iC0MlmM 0uXHBhciANClxlcGljTmVz dERvYzEgDQpcbHRycGFyXG xpbjBccmluMCANClxsdHJj aFxjZjFcZnMyMCBSZWNlaX NmRCZdxiGyl3RyOZwnfhNd YWJlbGVkIHdpdGggdGhlIH OzrUogimFkI0O5txXtSK5n TUFaXGYxT4PxVURxA28xGX ZkhU9iENEbPE7nBEt5XRLd XXUhZjwpzT9htTZnMADuvQ 4cAJIjJ5XfVnRtr51pzYD6 fuLmFoBxJMChct0agA5eZZ Isdd2dVBSzd0U2PJTjv9F7 GMIlJU95MOqmHQ7vGNctAK 4xIGNtLCAwLjYgeCAwLjMg tHQfIkBjP88kAqJqOGtlVD QeYWKtzAQmAZabGHL3Rt7l eXGdXSWcptQ2x6XxBHvwIU MqQbalAENuZVkupXNvYT5A DIGbHZrxpyMaFL2GUWOvZT bvVMNlrYHGHHA9EV4tRBzw hKZlnssqAYPeH9SrL6Zcwb NnoXQoJKCncoKsu8guYNY3 XHNsbXVsdDBcZnMxNlxwYX L1OJa0ZQqgCANpG8KxZ6Hg RWykNKF1KFIgIoVqVMOuJQ KMFwNdCnVvOoI3Gao8MrRt MXp1DQvwB9PHDARrIAP1HU T5YKW7LzQ7ABe5TCVAUs8a AVTcNZS5PvD8JAD9OmQ7QY xcdCAyIFxcZiBBcmlhbCBc EGNoQOubkjJ7NGIkXOJoeP dtlE4rTa1dIZ2gcZGxJEBk jZ2lPJ3jAvpwaRCaXFEkLL 3sdI3iFxgsYPHpRQmtBXFt M09ip5FUr3XmLV6QLXx8zz VgpiyfdL8hODTxxpVvCMaf bXKjJ3jjF2QtKLCtBzYbUg RjWIe4VCIcdV6jXl5pwAAg wV5weNCyCDebPJX0jMVzXT TeQEFwFURkFE49GCoCREJc bmFtZSwgbWVkaWNhbCByZW NvcmQgbnVtYmVyIGFuZCBc pPopDfTxLWe5K2UxnYefFJ Lmj6fmuk8lqRxlhYJqr6Vd gzSxgtuhTKVqKVVqr39bgW J6alMrHrKcpFi5sEVrSLA1 EE8zgYlmrzgzjXHxNUy7fM ScSYFbXjGhuGork1HdTSlj LjQgeCAyLjEgeCAwLjQgY2 5zoB0hXKucisIjNMOcZJ2j TBCyGQCexZToqH2lkhIdww McfYYcvUT7VQXsmE3vsX50 owKexqSMSB0sqTEdVV4OWC BhciANClxjZjBcZnMyMiAN ClxwbGFpblxlcGljTmVzdE DwKjBxyEnpjS46WOHdeAZc UAJ1EN8eKVXraqdxWEEvJL HmIVH2KGdfxC85nUXwNDRw GLKsvBKfeU0Ds9shWAQjfT HcQXS5GUytbYYfWWPfGBVm EZoiGxFcO7TTNHSjWrQmLW Q6GPAuSNe6RVb8HT3EVaNv WHTdJABfOrP9VZEmYBq2DT ypNK9SQGE9Twh6XRM8VLB5 NTMyOCBcXHQgMiBcXGYgQX QlDMklSFhqjVZoNW0zkFkv ddQ5BKMmTAcfBLZjWVYpxG diMVOQq6gqkcOjPPZaA5a3 Y0LtF0NuDZacXr4pxUOeJV 8LAZSubERWFNF3CN2uQZOZ ClxsdHJwYXJcbGluMFxyaW 5nSI4NYWd4ebRpRVEfPKug wuQxPSNdO0OhuzFsLCidMU Ozul6fuQmxPFpgAsGfONUh e0w3gOQ0kVWkrAU7dSNypA qjDyPwKB7hpYJhZI3jHStn BQmqejVit3TaVP27dNLmtj SiyxGfVSA4YjLfWUkrJNUg n0r0jRmiO41tq21fftcoiY CxDTXpKY8dmX2iGcNlfeNj K44it7owoWEss9LsgOLcgR lwbGUgdGFuLXBpbmssIHBl AIIbX1XtYFWoLTBum9R6OD Zxx3J3IAInLl04EXngDf7s BFvsDU98KRGoEAvrFAPxT8 ZcB7N2DCvfLVQSwLRgf4Cl A6ioJY9lzGFca5AdiJi1tF ZiKYlcMQCklW7ptK8dWyPg XHBhciANClxwYXIgDQpcY2 GsBURoLkFyTHqlfQxvqL5e WGXhZ64qv7DIp9FkMRAmNN mnm4qncXwtb5QmxPJqKLxv JRLjpOUyKWgppJ1uDkFxf3 nxkKf4OQsfhzM3IBXoqe9J EpkjDniowKexv2WnsXTgTJ fmQTMhKOTeGRmkELLrIX3Q YrRqWGvYDyttOSkfWcO1GX i6SVVQEzVtDoJxHnvuMRM8 VoEsFKx1BDl3LPwMOxW2LI V6OIVsNyJdKYRkVlrlUIz7 IDIgXFxmIEFyaWFsIFxcZm pqBVlmU53nIkQxAyaetGVp mdWQCcFWv9h0cDlgC30xl4 8mDSPSimPmp2RjimAaTqup UMAhXPisRDHcQ32al6VQi3 ViPX4XXGx5xgQyngwwaF9z DEYaixRvSXinsIPrS8hyW6 ZnUIWfFfEzGyTwVYu9JFIy zC4vHc6myGOhcI1xzOEfPB cuAAL2vMJlXYYsLHXuBFFy FF47KXfYOTSljiPyYOuedD VkaWNhbCByZWNvcmQgbnVt YmVyIGFuZCBcdTgyMjAgXC e1U3XarLtwPUPmo6adum57 ylOrk6JgbxNdDLVrkMUtTT 1dFvnnaR85MDFqTOMfEYTp rNnqDEatStAdehIeV23nt9 bdsLJio0VkuQKuiVyloGBu dGFuLXBpbmssIHBlZHVuY3 KuQCUdUJRcz2L7KWLau8I8 UGFyHp4pXNnaSa5kSFseBV 11WKEoSVukUTNnM0PhA5J6 LKlhOSRVrXRqw3HbZ7stJR 7wzWMsd2MtyJa8yVEsWUov DUMzrE2joR9wFXBfJKOzGX AataYIZrlqWEQsZOnCs1Xa qRezESDmE5l6u05uS1tavK DdLUPEOIY4sUNbsgEecROf MF6WVCXmsfZGGmsvVoHvNq MyMiANClxwbGFpblxlcGlj RcPgsVGwKeNouDtfqK28UO MszQHtYYK5AG0nZWMuciin LPQaMJSxSMC5OLtpvV12xW OwGUUhYBCkiQAebF8OBNMp GXD6XBubyP47wHLsFP0HIP GjUQA1VSSijNKfFSH2PL2v fQ0KfQ== MICROSCOPIC DESCRIPTION a6fwpRAaASIzyTO5DhLeSU (test code = 3371) Mnc9ywz4XtrDBqaNGbNVxd jAPetbGeoe27tWN0jS69EA 7mAPUgNoO8XFKhqcF0Xqt1 ZFCfYPOueQLyT827o3ive0 lfqgSeeXW3aIfsAKJqvszv RiG6WAvmNGCybaipPPm1FJ ktXEHlnBD9BOGxaXPqD4Re HEZlTV4gxpp9FRS8KGmfJI FfIjG4SNPqrHVvWVCkzBrf YBwqc404LBB0MwZpYGSsyd PfrDxkvB5iDnFnCKAGBGFg g3SdPGMeMJVccujmDUPfQN Bhcn0= [id number] 09:50:09 Test Item Value Reference Range Interpretation Comments Case Report (test code Surgical Pathology = 104) Report Case: [id number] Authorizing Provider: Angela Loco Collected: 07/03/2021 03:04 PM MD Brian Ordering Location: [address] Received: 07/06/2021 09:08 AM Service Pathologist: [...] clip x 1 DIAGNOSIS (test code = h3sorCYdZHXqf3kgQDPetP 3220) FuZzEwMzNcZnRuYmpcdWMx IHtccnRmMVxlcGljOTYwMV iojmJcYDUbgDLmR0Dmaeot MZhsQP5wLE9xkMztxKWuwZ MeCPTlXzTgp8vku995wAKc z0kfWVSIhgewkNg3zMdfP9 8ia1P3MacrD53rmURwQNK7 PLBdDNTifDGkREIsWFL3UC UxaACdS1nkURWdYN1ozcdr OFpeUNfcXAIgcHT0ZROlwN AlU4CrFWBtXYarECSamzz4 YkPgJf6mmORdoGgfDIiiLH KbJZVvCKgsYWSwLxJcOE2c Q77LD23mTVMQK4NXLHYHCG wZEUXPTB6NC0u8KLFuemRy LSAgVFVCVUxBUiBBREVOT0 2GYEQkdcjmDWYvLb0qW27U I02aCXQAS2uWE2SRB3RXGQ oSHxTNQ9pKSNsqCdnHUESU GuabMESfKO5dXT8FMUHSAG mUIUQMLQqHGZ7EWhCPLxIH WYWRXGZPJJMINE3ZXCPqsL FyICAtICBORUdBVElWRSBG K1OpSYdLAR0DTzPDGXXZQS FZMEHXQVOiY9KmFCLUOHtC GV3DQByyDXIfcAKzMZYhVP BLQC9KFZMGCFaMTY3VI4VQ KzCZXeqsRD6RFXVqPBAEW0 BTWTpccGFyICAtICBNVUxU SVBMRSBGUkFHTUVOVFMgT0 WpRVWOKEwOLmEYADUEE98G XHBhciAgLSAgTkVHQVRJVk AdDj7PWZaWG4nwK0OBTCSc YUiSFZsTI6zFWW5ZIB4SKP iBNoBEY0mmvIHdPKPbnjGq vOFjQPOkVWPNWD5JSWZKCx KQV6AXVxZGUMPNJOzEZCUA JB1FW1o9CLNakfItTEWyUQ SOANkRGKKwQmKLF28VFfQG PV5CZNTIZlQBGICzLDPMJd 2VYZgqLGGzJE6bWA0XV4GI SVZFIEZPUiBISUdILUdSQU FMYBCPC0IFGEJZRYHTTeDE RHjEC45WYlLGPXQthf26VE R0GdZcx7U4VUO0XUZzAWNf f9fjNFZlvTYyXhTsDhBdQw QyGywhwMOnDHOnKyDes8yl y782pNSpr4rcCGGwEoG9iR GwREPozEZxF410IGCqHCjn r1fzw7DjFYKhcZCfo2I8CZ NLamcovJq4zPvuH91ca1X2 XmrqH4zvZPYlANMzO7GbWT 5dDXBrPnh6VHD8YKX3RNZb EFZaA5HoJX5bSYCspJTaLU m5c9wbiAowZPRxUTR9w5oj WGokcsDqVH9til0llXp4d0 xjczEgRGVmYXVsdCBQYXJh R1HjsDymCo6mfIg0jQxvPq vlKBU6Iue2SO1lzg49bye9 nVpjXHZxdqivYvC3DIjqVB YazlvoKQq6VVuiLCXyrNY6 YPFbpCLkS1DlWTSaOO3vtq c0ZUA1VBfxXFXsRnB8QCFk tWFrBEYetPmoRYpmg536BA R5DbBdED8hQ2Lus8W3cV3f aXRcZGVmdGFiNzIwXGZvcm 7eaUCeWVgha7UoMGS4nrP2 mJAuqAOlVJJeSdH7EQfuWM 1mbf83IXQqZBG4cm0kfXPf lRgrxoTpwJHqQIqmK2TgPZ Bzk873UEKkU1XcZPSby7B5 nzIiWcToSNEdbPM1svP6SA CjHQ5kuvqcg8diHJjmVUwq LTKowqS2xlJ4EFNqfWTkP2 ZxkU5cBFOjAV9aoqvam3lb LUR6YEniJKApQID0CoZgTD Qba6Hfvks4UhJpu9QodDIi DKeqW45qt439BHNhqaZpD8 xwbGFpblxwbGFpblxmMFxm zdK3KAMeUHrcqvenJGLoPM nuM5zfPtQqGGZjoMohAQrd d9CpYFCnRYEaMyWhbODnLU TbDgl4LOLckWMmNKJkFdPu B8xhrwxxPwBYCQCet0gaB7 wnuZAIfYPvN8TjKXsbqaNm JRuzMHiySFUdPKC8QO9gHS FnUHNedd33 CPT Code(s) (test code t4ncmJTbRDWasAR1OaAkOA = 1898) Mfh9idj6PsnZLvaQLhCCbq tLDqhkTyut77lHL4rM88ZJ 1yKRGjPmK2DISyogG5Odt1 JCHhEJWhsASoH318u0bly4 vhgzPkyEI2dQksQFHmddfp UdS1ZKhiRIWlpbcqRAi3UX egKBCnvVE8OWTgtZIwI8Oe NTFqVV5mzoz6KRE9ZOomOF UfFcQ2ZAYseHIsLUKdoMqs SWmra333JTP8DkVuHNEwse CmhYqkuW7cPsMqEMU6NLEa BTz9ZEHoma0= CLINICAL HISTORY (test m9bfsFLyEAYxiXT6JkQaOP code = 3356) Fma4zhp3ScbYBcyQQfKFbh gHGfvtIgfm98dED6nC84KB 2aSKXlLfD5OSTzfbO2Slc0 PYDgJFGzuAQgQ594t4jin6 xcjcAdrCV8TNWlZLFiA3Yn EO8sSZLigYQmA94mmEIlER Q0SYRjGHEseAEsMYWsYCP8 SPUhxUQgF3sgUNUqVQ2mej lgTDnkDIjlOWUemRF4CGDx sTFhC8KnJQZoWLarZRMupn v3IkTcQk9coVOmvYxbFJrr YXJkXHJpMVxwbGFpblxmcz KePWNbMNWXkp6dSWImHyzj gUPpQ3mmLW1voRpdROI5wd JmQFQyDdmqTTPacd6qNZYh NshyeVQkE8guQB2ckTxrQF M2gTRxXKLrke1= GROSS DESCRIPTION (test v3xjuIJkVWJdrSDAPLAqWa code = [id number]) zzttMcZSObdBNkN6Mjhhni PKjjGQ6wIF5mgSaevIIyqP HnOS5YDJRjQmWpAQFeeOIo czDnNvWwZUQnyCSpiZQ1TV KyHS7deffgPSybVBczGIZd ttD0JJHmlVAnC7EoKJTyXB 2maddgSIP5NVtsaP0pcvGL HowgLp3ynISkoXauYgYhJe NoYXJzZXQwXGZuaWwgQXJp UIa0tG7HCjijJ35ix3A3Lx m4LDHlKPZgS3WjHC8rASYp nUScP58LEccqSJJ0KNZFLe mjHYLqZR4Kj3deXECzpFMp NJL8DFrolXNeXBAnCSAyCI h8SJHpWTapgIXaBQ2daOuf ZwdfeGyos0HyrNBwUSnqPW OxFOZcRIydKFNgDF9RUuBe BWoUHpsuKVcbAoH5QSn5ZF ZJUxGzPhVrCporVPM2OSbq HYo8YJr9GDkASxF8FPO3QD DnJJekURPdThbzXIv4OCUz XFxmIEFyaWFsIFxcZmwgXF klX12czPjykK7jHY1tIV6n oAMgGZEtpP1sEI8kI0FeeN 0uXHBhciANClxlcGljTmVz dERvYzEgDQpcbHRycGFyXG xpbjBccmluMCANClxsdHJj aFxjZjFcZnMyMCBSZWNlaX UjHXAcmqFgy2DgLQiiwiEd YWJlbGVkIHdpdGggdGhlIH HhnTthlaFpR7P2sfCsAX9p OJZxZYDgL7AwBQQoN44oGJ MruN8kLEYsVR1ePTk2ZLLp VPUeZufoxN7nrBLuTPGwpI 6lJKEaY3ZeZaUhh82dqXZ7 ttRoQhLoAUJufh1ewO6oLD Teid9gNGOkp0J7CIRmd5N9 UJYbQU28IAnqTQ3bWTyjFH 4xIGNtLCAwLjYgeCAwLjMg sUYrNqTfZ78hFfWdILqrYQ EsUGFgkOSmSLlqKLZ9Un9u bVWwHNJuaqD6r5OcCYkoKV EdWxqgRWFwAOzeaPTnLR5Y RQBmPZqzakGkHB9ELYBcEV cxUCXfrBTKBPU6JC1oBFza xPXunzqlHOPkY4MuH7Rdjp SilLIzLLZoshLny5ywQER2 XHNsbXVsdDBcZnMxNlxwYX T5VEp8WXgrVMXjK6GtB0Lc DHznZVJ4RGGdMfEhPDDvKJ TFAoQkAbKqNmW5Ymq4LqRo LBi4EXgzC5RJLLCwGDK3LS U5OVA9IjB2VDy6AQRBOo5l RUSxLPR7EgB6ACB3BlC9XR xcdCAyIFxcZiBBcmlhbCBc THEoDHqejzG7QCWvYNEzqN gohN9wRy9qYX2voWHjBGOt wJ4fKY5yHnjpeHBuVBOaII 8coA7eYluaUYFxQBtxEVHl J43dk7SOx5OyOE0DUHa8wt TevusndJ5sNJBkasMnXLzw kBSyX3wkI1SpXTYsNxHvTe HwQZn6SRBsaH3uAq9akFEh kG5eqRDaLFftVWG7fCVrOD MaAFYqYUAbBG97NCzUISBh bmFtZSwgbWVkaWNhbCByZW NvcmQgbnVtYmVyIGFuZCBc kWdkZeZaVCd5D3FqdBqcHL Hsv0xqyx0wvJybdGPps3Jb bvUtsnzqHXHyZPDfm53ciO L9yyHkKbJacCu1nVXkPFD0 DU6rwTatiqahzLRwEHc6aK ItUGKaJkSkdYtwu5XhMXix LjQgeCAyLjEgeCAwLjQgY2 8cqE4qEChybqMcBULqTN1p CGPxIAQmmYYonH2tbnZslj QorKBufAB8GUCcxW1qiQ37 uvHdxaWWCT9gtSWoRD9CYR BhciANClxjZjBcZnMyMiAN ClxwbGFpblxlcGljTmVzdE LoCtJkoTkqnX41AIQabHZc NYK3TD3jYMHfzrcfPMFuDX HePAK8UNzxgZ77qCJaCIPn YOJsuOFuvR0Mm8gqAFOtbH VuNDA9HTwrkXDiCILdOPCt NQvzNiJeX0NLEFQeUuDoXO O9JUWlJIq5PXo8AY3KIbSt YKByCOXgGtZ8OQPpMNm0MO wxZC5UEEI0Kqv9KEH3CAB8 NTMyOCBcXHQgMiBcXGYgQX OyDLmfSXjieOPtII4ilVez syT7QIJrYYyzGQZoRZRgrZ llMASPi5eekwNoLXTmY6c6 I4ScH0UsVVobUm4qdLGhTA 1NNZFkeJUCMBI7NH7qUVYY ClxsdHJwYXJcbGluMFxyaW 2jDF6TYAx4obUxZGUjGXtf plKzQBPrG6TjpqAeQSbnPO Eski8dfKfdRGfiWoJkZBXz u9y4bYT1dNQxzLS6oYOxvD diOkXtKT5frXWiQL0wMKxx UAiszmOqo7CtRV14uPIwkn AfetDgIWP6IvPiMQjjFYBp s5c1zAcfQ47nx02dvtfgxL KtMYGlSP4zvE5sDnNazjSz X80yp7lriWRrp2LcbRBixZ lwbGUgdGFuLXBpbmssIHBl RHRlL0PkCVQfXYGxo3S2IC Tnp5E4NUYcUh47NXkaJw9t OPhsTP15KXDfEObqBXXjC9 WpE6X1GSxqPXUSnKCub3Hf I1gfGZ6rlHAgu0FgjEo6yU FqSNwvQUHubD9fcR2hJfRn XHBhciANClxwYXIgDQpcY2 DhEYJjKzZqDNfskZeahQ2q YBXqN89ld8DHw1OeUACbZF uej5btmCdra7ZwzTOzJPvk IDWgzKVuCTbpkL8cIwUhu9 rbvBt9ZNyxgfS8FOQtwm7U FmemSvlizFbse1BwhDAnFI tuGWIqECMjPOmdPMHlCK3X JfEtBKeVUbyxKLknBcY7HO h4LOPYBzTgVqOfEmfjRXH5 QtFxKLs6JQa1ELpYOxJ7ZE K2YEOoBvOdNYIlYnyePLk8 IDIgXFxmIEFyaWFsIFxcZm hmDVgbS36oFeAbTchaqZFm wtTTGgHOr7k3mCpmW48fh7 0bIGGEkfEkx3DwpkWoWolr DPPwRLdcKHRhJ53fe6PAe2 RxTO2TFZd7giBwfhixuL3n USZzoeGnSEkcqZRkS2azL3 UyHJEtKuZaKtMzPBv6QNBo oB1aVf9bqMBcfV5urRKpSY jyUXI7oJCgTHVyLHXyMLIs RW78DMuAJUTxleLyMSafjA VkaWNhbCByZWNvcmQgbnVt YmVyIGFuZCBcdTgyMjAgXC j0Y1VmtXueNXDlx6ebgc09 rnGpm2PkvzArESOgvMUdOI 6cHocwjN97JGLzVZWaKNCh qRcdSTmjKbShhbXbB70zk3 kikYEda0DhpCSwaTzzqURu dGFuLXBpbmssIHBlZHVuY3 MzCYKjEBSef7X4VFCjk6G8 QEYhNw5eIUkuVs0xQOkiZK 25PIIzTIwbADLrK9FcF8V0 UUabNFCFeFWic3HrA9mgWG 2mgABha1SevPv8zURxUFos CRDieY3mdW0oFBSfGIJoOX JnlqTQAszbLAYtAYpVb6Uc bYweGUUoA9h1q32fV2tvnM DsUEUIJUG2hVVrxeElfDJm FK9WXCYpwtQMJdppCoRqNj MyMiANClxwbGFpblxlcGlj XoFrwKUtWgIveJmfzS71OY GprWKgFQD1NH6jNHCnlpvk ZEGbDOFwPLV4YSojxE77uP OyNPObEJYloDVrnE3YPNIf LRL2CEpjmS13kNQyQZ7KOS WuASC3YFBtoDMrCBE9HZ3w fQ0KfQ== MICROSCOPIC DESCRIPTION b5kkjPKoUWCiiLI2WbSvMY (test code = 3371) Fql2kyp7YvqJQlqVSlCUfo qZIloaFhnk29fEJ4vI72XG 9sFWNdIpC2XEGjxpQ8Oxy1 CXNyVZGmkLUpW251y4mvv0 pzdrGzyTT0uXtiUDHlxjcd RwO7ZZasIIUgfjdrQVn2EA dkPEOasCH7VTSiaDMuV2Zs NGYuWZ0skcc5VFP6EIuwUD VpBnQ9LQAjrRYwAGQukUiw EEzcg243KKH7ImZtXJGgvo AruAncjO8gBdGiKKAUOKQk s0RmTZXkRMIqmbrdMYFlGE [facility]0= [facility]j7721[facility]-11 09:50:09 Test Item Value Reference Range Interpretation Comments Case Report (test code Surgical Pathology = 104) Report Case: [id number] Authorizing Provider: Angela Loco Collected: 07/03/2021 03:04 PM MD Brian Ordering Location: [address] Received: 07/06/2021 09:08 AM Service Pathologist: [...] clip x 1 DIAGNOSIS (test code = [id number] 3220) FuZzEwMzNcZnRuYmpcdWMx IHtccnRmMVxlcGljOTYwMV qvapJdAADbvOQuQ7Kitcid QKzuZH9yRR9mhFmjvFBiaH NjFGGfIhKfs9okg708lWOs n0glFDKUtrudjQz6tIbpL5 0he8C8EygoC64eyDMdGFB6 OHXeVAOesDSyTLAqFNQ9JC RdeYJjC8jgWLGcFY6ksirj XOhjIDpcRXOdgWO8KAGmzN CcN9TaDWAwRDclQLDdfym1 NtWoHh4zdTXamGgyEWlxVA BxKSNfTIizVHFaOeQeLQ4v I83NH11eFSRVN9BXZNUSBC gPNKDADU8SF2z3FAVztlUn LSAgVFVCVUxBUiBBREVOT0 3XZKSumytiYEVvVy0eM44Q R84xGXXUF5mVI4HLZ0IPLS yOTbNBV5vRRKoaVujUQJAE UzbtBZItKW7iFK5GDDHGMI qQKENCGRiPOV2QJcUCQpTI SVVNPWXTTIECIL6GKXOwrT FyICAtICBORUdBVElWRSBG M2TiLYeRTS0IPyHXBCOAZF GFWWAMGAByK0JwYGIMUJoI ZG5WIErpQXMztZJqGGPhEE ILOK1EJTROSLbUVD8SK2ZV QyPMDvllAY4AUPPsWIQYZ6 BTWTpccGFyICAtICBNVUxU SVBMRSBGUkFHTUVOVFMgT0 FiOUQJZJyXCiYAGOXXW24B XHBhciAgLSAgTkVHQVRJVk LiIe6APLtVX8viC2JVFZMz QPqIOEdXQ0tMNQ1GVT3NCE hONhZQB6edyWPaGSTgweHh lMCuLFIkWCJAZE4RGTUESi ISM5MXWwFGQBXKDGhXVAUS KJ7HY3l9VJLmuuYqMSJaUL XCLMgQIPIdKaPTA34MCeYB VW0ACGXFAqHEAHIyFCIRNf 6OBSsiVFUcRN6sHZ6VA8RJ SVZFIEZPUiBISUdILUdSQU ATAJTBI5QVRJULAQEUHcXQ PDoSM03VOqLWZGOktb36KV J4QaAll6D6AUG8BDCpRFAi e6exHVVopJEmLiGiLcIoXj FiTjwhgIMeRGAnCwRtp4pi w602lHBje2jeICTeMcQ4eV WlJETwgRCmL693GQPzOMel z1xwp3BwCBXvyNFlc8E9AB QGmltjxSs9tLopD42ku7U1 YyrvZ0ryRQTaDRNjB1PpRQ 0vJJZgWiq6BUX8LAI0RAMu ZYWrI9TbDJ8jSIOurFFwZT z3h5ukyYenOTKhGHX6r6ld UBetnmMvVB4gjk9cqEi6c0 xjczEgRGVmYXVsdCBQYXJh D2HhsBvuPq6oqEf4mDtgOn zbUDL8Mxt2LX6pon88act3 xEyrZLVwwzfkTbW5UVyzZO YzvnifEPr1GAygGABlyUV4 JAUgoKJhL7LrQXBgHO9irw i0XOX4KNroOFAeRiL8MWNk mNMsBPBjzWtoINogp198RY U6HhFcEQ4zD2Ywo4R2zJ6p aXRcZGVmdGFiNzIwXGZvcm 1yiALpQItft9WkCPG2ecF4 nLAghLXuBGQjJoG5PTssTB 4oof55FJAvTFE6cx9kgVGs nJwrdlBmcXBjHEsgC4DsZD Xbu899REGjP8QaFCUns2Z6 byBhTxEvQMDdoGS6feU9OC FjPQ5behfwt1nyAXqyVUga JVOtjnJ7jvH5LYUqpEVeC4 CxdY3fTHJlOH3wasqos2op WLS8IThqQETlIXR7LsWoNZ Onr6Aiaxx6ImLvd7LcmLSn UQpbY11ts842XRPkymKbJ8 xwbGFpblxwbGFpblxmMFxm esD1LEGwFPzubwveDWTmBI dnU4ylJvNpXMJvaQmcCLcf d3OiKESaVRLhTdGfyPQtHK RcPej3PXBkrUPpAGXzKgAa I4aznhljSzLXPFKoh7zdE3 akfTNNoGJcB7DhLXamwxDb UVbcVWhvVZEaAXJ3SF7vYY YnAPUjer85 CPT Code(s) (test code x6umlGTeTHFpfZT5VdLnGG = 3357) Djx7wso4IlqFDubQRwTUfc jABsrnNhou75lLQ2zW05NU 2iXLBdQbV2CTIzdfP2Wjw0 URTuKZNigJKyG404h9zjv5 aimaLqfEN6lDgzOKRwlamb GqU6YQzlIAKxvnvyXCm1YN ywJCDiwVY8NGFfhOBzB9Pw QOIwBA1uylb9ZXM7KJckQH CiDuJ2XMYdmTGkNCSbrDfw RFokg789LXP5EqFyMYRwod QtiTyfpH1oHyNrWXE4GQOv DEq7OTEmzb2= CLINICAL HISTORY (test y9iuwIWnYFRnlIC5GgSnKC code = 3356) Eok1afj8LdjDMqxJSjNZzw cUAlmcQdds06hHN0uX45YW 8tFVVzSoO4EZJcqgF3Uhu2 KWTxUNEkoGDsY859a7ogu4 roxdOryLF0UNJlZTCgK3Zq UP7uKNIvcCEwI51utJSjOT H6TNXbTGQnxGHuUWOsCNC2 GSOjvKPmN1rfNOVxOD6nsl ftDKhnXCrrGSXwfKD3QIZd cPGlB3NyLNLyBWoeYYApkb x7UbPjDr1acNNtqIpdFNme YXJkXHJpMVxwbGFpblxmcz AyCFYxJLXYxz2nYJJzSsep zZAeN9ekJR3ygAexQRI5kh FaKVYuHyuqUKJnnv1iUPOg YfwytPNiT5bnGS5mwGuyHC J9iCCkBOAibw7= GROSS DESCRIPTION (test h9wsiYSnSIDxrYZVFNIcXt code = [id number]) kpddWmSCZcbBRzF6Ayrqxs RJuwMK5qDE9jkWwxkYXaiO FmOV2IQMMpIeDmUCTvyBNt tnRxIvGjJTSqsDJccTP8IO HkXR7bxqtpHDcaZAnnENCx uhW5SAVnkENcV7JcBANaLO 6yowjsYQN9AUklwT7kksLO ZswtBq2uhVAlbZqzXsFdIo NoYXJzZXQwXGZuaWwgQXJp JDr8uB7MXlyfF44bm0A3Jm y9EQOySUJqQ3MhBJ9yVOAy zSKzC56TAuuiUDJ3OQXUMt rnYRDaEP1Lc2fdNECmmJAu IMK6XIkdcPGxPIAtWQEvSK k7PZYnIRmxdDHaSA1hxNpc AkmyfAzqz1DfwVPeEMerFJ DrGNVrVLlqBOKkEF9YRiYe EQiSYngvVWlwBrL0ZBh5GN LFAuBrUeZcEsqaZNY7ZMnt NMg1NCp1LHxKHgQ2FQF5EL McKEbqTXMfFtnsKFy9GDBv XFxmIEFyaWFsIFxcZmwgXF jsK85npVtoaO6yBX2iLP5u mMPgCDBciC1pLH4zV4JkdJ 0uXHBhciANClxlcGljTmVz dERvYzEgDQpcbHRycGFyXG xpbjBccmluMCANClxsdHJj aFxjZjFcZnMyMCBSZWNlaX IwGALeatYsp1FsIHazqfNd YWJlbGVkIHdpdGggdGhlIH RxlLxmhaLaK3Z5doPnQO8g CKCfZZCuK1OfBVEhK13cKC AnpZ5oIYHfVN1zMXu0ELRl TMObNscylN8lgOMjEXCcvD 0sMBIaX7VxTtGxf07vnON4 feUdRxMrQURuvy1sdZ5gNN Jcvz4hTYNew5B4HSScf1C8 GSNoER73JMeqBK7tRXygDL 4xIGNtLCAwLjYgeCAwLjMg cILsKdSaR27kPqXaQBuvVC QyIJNtsPYiSXeqWEO0Xt6g bKKwLKLfowJ3h9CgIHwiRX AgSpwaLBFmVFnslKSvBT1V HLDxTMxdgeYnMK9UTHAvZA rjUCGueOCOAZW9OK1kQSuk yTEnfekgTNZaQ2QnL8Qpdq HddOPjZNNcbeJgg6odSMB9 XHNsbXVsdDBcZnMxNlxwYX R6ZUt2DBcdNGAuM6FtD5Be HVbnZPA6OMItJwDsFICiYY AUCxIzAuLwAaG4Bta9LiPq TVl5IJiuH0TQMPXzQIW9GG T0FZJ4WxL4MGj3CNTNPw6g SRXbBOR2NaL6BPK6VsN3YM xcdCAyIFxcZiBBcmlhbCBc LUUdLQjqaaH9WIYpQLAvkF uiaX3qCb8oFC7jiHNoQMFu tD5zFC9aDexehZCgTLZcQM 5luH5xMhxyNFZsGTzyUOSq C86ez6XGv4MdYM9JPJv2rq HragjmeF8kNNUewlMzPGtk vMYhX2duX8LdFAHgFbZeYs YtLEo5BYVwbY6sCg6pyYXj zC5ynKBtHLimZIO6uYHhUZ VhNTGhANRjLC46QRkVAQFc bmFtZSwgbWVkaWNhbCByZW NvcmQgbnVtYmVyIGFuZCBc jUddZhOrYQf1T7KrvUzuYE Cqh6acnk1mpXskoDBrv8Hd naMlltlfIVJaKOPns40qzY Q0fvAcSlHjoTb0fBJjWBU8 CX6oqVkklqrwxCVxKZu8iI TaVQLlWkDbbCxla8UxAZmo LjQgeCAyLjEgeCAwLjQgY2 8ufT9wCChgpcVmRDNaWQ2r RFKqHMNusZHsxI7lqhHswt QndYZciQV1DRFkqP0xmP59 rdIkkjLMME1dyKZjPZ7SKI BhciANClxjZjBcZnMyMiAN ClxwbGFpblxlcGljTmVzdE TtCdUqoGztwZ54EQDrsLDn MRK2FW0cBFGooqweKAOeFE TrSBT3QFcapV52iXThIISc GEEmzKBwxF2Yu2sbZRCqfK NpBGG8AYxweQXxHCSjBPRe ATjbFiSrU0LEXJKwQrWpFO L8ESZpHJf1ZBz6QT2HJbNo GLYfCNKfLxU4EWYwMWw7DW kxOV3GPXX8Rqg7ARN2XNE5 NTMyOCBcXHQgMiBcXGYgQX WwVJxuVGicqRFwOK1kcSey ihZ4SYWvZDguXFXdLFViyY cbHRABc0rxhjHgOTXxY2e7 E2YhP6UaZTbfWd8duADmSA 3XANMxjYIOBIV7VV7gSTEY ClxsdHJwYXJcbGluMFxyaW 4uLN3VCPv3gbFwUTHzJXjy awPbRVDwL0KljmDiSDbxYW Xxoo3xgTukLRchQcKtZMEl m8z6fEI8pAKqqCQ4dRErkJ ywScPiWU7kdUFxGK2cMDdg LQwhkfGhx8NkGN97jLAjbv UqjyIjGHF7UgWmDTvtRLYt r9c0xNpwZ36sb25eyupjfW LhQUFqUH9fuY8hWbNwvtLb X73zr4odpYSsv9ZdxLOaeC lwbGUgdGFuLXBpbmssIHBl XQGqU2AhCCQkPCYoo1T4VC Wfm9O0DTCnLr24KUaaYj1m OFwrGI46XGQpSNneEGZzT9 RoC0K3BBkkVKPFmCJhn7Go V2jpIK2xsQWzf3LeiXi2uA WkSOolXXAjwT8ceL2jFmGk XHBhciANClxwYXIgDQpcY2 WoXNAaGmIpGWfhjKbixK9v YZVpW39fl6BRt3FlQCUwBY xjn8fewSpmd1BrrIIvGIcf PFPdmXWbGJkciY5bTdHwj8 vywBx5FUuunqA8XHZrsv7T QcavRbxuzTqby7WqtNStON fxMXPtCEExOUugMULnQU8Z RwPfTXkBLqufPYsoRrL3TL b9WUZHHfMlKmBvVxcmYZF7 YsNeDLi7YMd4ECmCUrY2TF F8RYCrGmTcCTGsWcghBXk1 IDIgXFxmIEFyaWFsIFxcZm osZTguD40sKaUmEycgoZBy qwTYXaNMm3k8hTrzJ78xb3 6qFFJDdkJis5OzjtZrMhca XSZdZKpsPBQsX25hw7YLb2 DdGG1SPJw3sjCurdibnN3a KUEkrmPhRItbxWUhF9vcB9 QiMGQkNfJlGmOvPDy4SFZs tW3qEv4gdPShyY1jlVGqZN tpWEF3yFWgJJYnZTVgHJYb WF60XBxJUVBdwoOaKDurdM VkaWNhbCByZWNvcmQgbnVt YmVyIGFuZCBcdTgyMjAgXC l4E6FxoEjhNGDin5mqsu50 mmUae5BjyqSmBDEyrSBsVP 4sHqvluI33DBWaTHVnOEGo cZlfIDxeImGlaoEuI53ki6 axnKVhq7MfzREuwWjhcVMi dGFuLXBpbmssIHBlZHVuY3 SgPJBjNRQly8R5ZZEdj5K0 LASnHc7sMMmtXt8sZVtkMN 93AUDqRHbdAEVwZ0SoB0N8 CHgfCRHBpLSfk8PsT2ycVO 2izTOup4FkrEi1lQUzMGlr YFFviJ9auW5sDYFgPXWtJQ DhntNJOqbbKIBkOSgUv8Si qFknAUAxH0j7i41nC2ckuP UoUPXQDRD5yWWyrxAvqUOv SB7EAVWluhUHKpilTkJeEa MyMiANClxwbGFpblxlcGlj RgKvxYDdShMueUrioH98DX UfrVKiMDF1GT9hENGzmhcv GUVgSKHdWHC0LSssnE33xM CsCEAiUVBufSLlyL7ODNCf VNL8LJwqhJ34mUAbCQ5OJF ClXEO7RAYqfUDkYUA2TJ9h fQ0KfQ== MICROSCOPIC DESCRIPTION y8evkCPjVJYlrMU2WfDmAQ (test code = 3371) Pnx3smk9XpsVSkuGGyEYxt aSGxbaZmpw99lWH1qI08KJ 6nSAHpIjX1VGXuxcU5Zqs4 JLCzUYLbtERhM175r0uxl3 fcmmRzlGP4wLxoPOStchnl QmL5EUobXGVnmredVXc1ZJ crLRBnrUT4LOVbbEStS7Ey WAFoQX9djha6WCA4NUqnVS KdFgV3BMQmlMHiIZXsnKwy NAcwi791FEL2CuScJNYdgl CduEqbnY5rIiYrFUEFUSAi k3OdOQHpUURfbgrdRYRgDB Bhcn0= [facility] [id number] 09:50:09 Test Item Value Reference Range Interpretation Comments Case Report (test code Surgical Pathology = 104) Report Case: [id number] Authorizing Provider: Angela Loco Collected: 07/03/2021 03:04 PM MD Brian Ordering Location: [address] Received: 07/06/2021 09:08 AM Service Pathologist: [...] clip x 1 DIAGNOSIS (test code = [id number] 3220) FuZzEwMzNcZnRuYmpcdWMx IHtccnRmMVxlcGljOTYwMV syvvJnLMOslWCoI7Kvnsbk DFpyGS0mYX3eyIqwnLGucP GsLINeUmAjs7vyq466xORs f7waFYWTpkmrnRc4uHobY7 2cs2U5TjbcE26bcOWxXTO2 ZSZjSLJwlZBxWNAkOXI3LR KahMXoG3jjELNqLQ5gzczi YInvVAwxFHNamEO6SIDmhO QjC8GaVPDrPAbeKPJqahw7 EiKiTp9aqITqpOytSYtbJD AcUASrXPpyVADxPfIvSI5y I61PE41sAOBWV6BLOFYXUN uUREUELP9OW1v1KARoerTy LSAgVFVCVUxBUiBBREVOT0 1LYKNiphptGIIuTc4iQ93B U70nGOLRD3cIX0LKN4QNPM dFDrQUN9qGEHzlDuhVYYRT LrdhOQVaAS9lOV1AGIRJAB vCQVXAONwZSO5ARlJEAqWL RFHIQUSXHZZZPO8FFCHucT FyICAtICBORUdBVElWRSBG X3SlMSqCDY8KYyNEAHXUMM TDYYZTCPAgG4UcQANDIZyE PJ2VNWqcILFhtQCdAEPkPF BOXY7NCCYEVTnXYP4JB4SN LpZFNomdAK2VNBAeZDEVS9 BTWTpccGFyICAtICBNVUxU SVBMRSBGUkFHTUVOVFMgT0 TwHCYFJNgSLzCHDJWPA31R XHBhciAgLSAgTkVHQVRJVk OtAp9BFQvAW5blR9CFTTEz BHsVVMyCL5gKVP4CQH2LOR hOGeHTB8dimUJbQTBeeaWf bWHnRLMbLIBUTQ4TZPZCKi JZW3ORIkCCFYJMOCoMTVJK NO7TV1t9NIGdhfTjNYVzYZ ZYBXkQBBImIyQYD14NGjJB AJ9BEFAKYdLPHAZwFLBHLt 9NOQymDUJmGT4hYH2SI3HJ SVZFIEZPUiBISUdILUdSQU LPSFYAW8FZGMWWDFLYJaOH GTcVJ26YEcQFWTQjvy88UL C1DdYmf2Z0QVT1YGDnFHRh e8fkTPTblIVvMwQsNwNyUn WoYzepaWDyILTgSuAyp3vr c335rIXta4mpEDOlOuD4nR DtYOAbpGSgZ645WLAiAVeh w0uft8ZzDBPdoKEpi7N1AB LHsqicfDw8zFkgI45iz5N5 ZiykN9nyHYNdALThZ7JfKC 6aFEZyUpi1GLS6MRO5YGKi ZXMgG7RzEG9rIKJvlTCaYM i3p8urnGvlRJRnNVL3v6vj ZGjwxoHjRY6zvk8alDg0j0 xjczEgRGVmYXVsdCBQYXJh P1OczXqcHg4eiUr5aAreVs aoYJM6Ele6TN9geu08sms7 zCndGCDjueoqIiH8XBrzKK EnbowiCWf8RHunFZXytCU0 ZZVwsBSsZ6VtLXNiBG9qkf c5RGM7SQjxLKUsMzN8BSTj vTRrXEAyaObvVFmeu476IX E9MdGtIN9jC1Vsf2J8sF1f aXRcZGVmdGFiNzIwXGZvcm 9ggCRsWDnxq5PiGDM0tqJ4 yVCxrHNlLWJoHyT8BSbdKC 9kzv33DPRdBKP4oz6prIBf nCmdyuPhnPEwWCbpM9YoFH Esd861RBQnV7JrHOMdn8Y3 csGjEjZpJSDieCF1iwF5VA LsXD2jrnwax5wqGRmhNEeb FOOpgaY3cwE6YFZtmHLkK1 QtsE3xPVMbIT9jogpjv5uv IRC0KGtwXPHgBWG9CpFlCK Nco4Jdivu5NxWbo5BbvFRw WNcpG08kq408QFHachFaM0 xwbGFpblxwbGFpblxmMFxm vsI7SEDtKRfjvbelRNIfHX qgC1hkZdIgBPPfjIlgFFsa f8EqDDKwJQOlHcXxkQXjTX UrDba7DHTmjTNnXMNfYoOk Q9apkozrUsFXYRXwd8bqQ6 fhvBJJkDXhX4YkQVfjjcDh DWhgLDacYPUnUPC8VA5bWT MjKADbwc22 CPT Code(s) (test code w0xmcFMkBTUlsRT9EdBiGJ = 3357) Uxk3pnq2TbcGCoaSLpRGnf uDPmrdWanh29aST2dS76AK 6cMTAiIoN2KIUlrqM2Fhd5 GQRgRCPdrOSaO771i2apa4 rigmDoxWA8cEoeFEVhwwky GdF2ZLlrRSWmovrrAIp1MY nxELEmmMC1FRJxpQSuP9Kz RSQmJD1kfgw1NJY5AAhpZO MbYuP3RCSimYRjQKHxzPiv MAavg399EMO6EyMvEPOedh IpyQpziF4gGgXlTTH4ONCm GTp7PDTyow1= CLINICAL HISTORY (test l5bggCLyYRKksEO6HiPlWZ code = 3356) Jat0kzu4SatJDbiUYpQOto eWKetaLwkn80lHP7iV74HT 3nEWXuVbL9BISzkwA4Pdm1 GTKeLNEecAPfI076v2dbv0 ugusGnfJW9CJYnHQIuD7Kx XD6qUGMalAJbA50lmDFmPE R0WLSwDQQlvMOpLSSfAZP5 JBYukDTaA5rbDENsKA3pru pdVOfjGCzfRPRhpFX4JNNk oSBdM2CpBQEfARysYPEtnl d0KgAeQb8sdXVktVsmBXzs YXJkXHJpMVxwbGFpblxmcz ZpSKKeZKKScb6wBIVwFqfb cZNpK2btRQ7enRzmZDQ5yo YoPKBpOdlqCMHwck5yJETh GwvimNShL8gdWD0tlTsiRF F3wELpCCHxfr8= GROSS DESCRIPTION (test w5aysRMoILEjvCXPWSCsCx code = [id number]) nwdcVtGUVdqQNeP2Qtltid WHdnFV3wOD1lyBtegIIirI CfAJ4TBZFyIvHpFJRkcSWr ubPqSzInGEJygQLwwVJ0MJ JvJG7aqngcNWexOTcoQIMr bkI6EDQenDFtV1EjBFWbKU 0zrcdkNWF0WJltiA8ctcLY JoqwFe8srNQwiXmcIlVnZg NoYXJzZXQwXGZuaWwgQXJp PVr8mL6EKclkX27pi0K1Xy e0ZHYuIDGvJ1BwWR9fSIAg hRRqN39APnjtBYO8MMYDBh veYGCgMT7Pe9zyQLGxuOWl ONC5KDajeKCrZKKkVYCkGO p5CBYkHMyjxIXcAB3cbSwb JcixwNzpx5PkdDTlCMtnNX RpGPAyAGnoUYMmHP7QOyDv VMqMFqdwPDvdPjZ0TGg4XP AHAyVjXvVvWlxjKDR1JGnb DJs0DIe8YPhSJdK2NUX7UV FiESseGOOaKhrxZJy1DLHo XFxmIEFyaWFsIFxcZmwgXF hlO99mkXrupX7aXW4yBO0b xNTeLSUqmP6sAO5hG7FhqC 0uXHBhciANClxlcGljTmVz dERvYzEgDQpcbHRycGFyXG xpbjBccmluMCANClxsdHJj aFxjZjFcZnMyMCBSZWNlaX BvKGNffiKlk7DrYImjjkRk YWJlbGVkIHdpdGggdGhlIH OoeEsnibXtE9Q9hkHvBI7i BZXsGTIeB1QoZMLqC15kIK KelO5lZEBcSN0rSBv6RALg EPLbHyxkxK4saAJiLTRpeZ 6fYTVsG2WhXtVza38teDU8 uzVgOxRvCDYjaa9mmB7mHH Vmbt6oVJYuq8R6CBBnh6Z7 MZEiFC65YGnjZZ6dYWfrAY 4xIGNtLCAwLjYgeCAwLjMg mNAyGuAxZ98zQxBiHGovDB EpNNNuvDPhAKacQIJ8Zy0e pLGrHZEqqkJ3p9IkVDhsLT SyTlrwZLRnFQlrwRGhCQ1P ZPBaTHjxrqQzEK2MPASoMS rzDWGeoXKZDJR5NC3bGYad yUFmunsjKXJrW2SlX3Ykpw JjyKDdSMJlwmXot6aqFGG9 XHNsbXVsdDBcZnMxNlxwYX F6KOl8ZCcxBNQnS2ScH0Zv FMaqQXO1IFNmYeLfBBCnWN KEWzHtMmMwWvX0Wwu6EzAf CXi9JHafX7PIYXXfTKD5QB A2HJP3UvI2SCd0ZJYXGi0w FSUqIOH3TzB9RCZ2VdE3PA xcdCAyIFxcZiBBcmlhbCBc RAVvGKtbheL7LWYsEGUzpV wsiH2wQm2qDA1vvBGvIVJz iK4tDA1zHetlpFGlIHAyZZ 8oqL0mMncdCLCsTHftCUNy T24ik6EId1OgXZ0KFWd1qw BrchhofX8tHNSwzvMbDCca jLCjV7rpC8IeJEErVhGbPo HeIKx0JLNbrK4vDa3naHYh aG3scJFdLAtuKSK1eEHpDY FkNUXjHVGzUI65PXmLCZOx bmFtZSwgbWVkaWNhbCByZW NvcmQgbnVtYmVyIGFuZCBc nDywSbDiGXx6H3AfvUimLN Wan3bnes5cvMhdrXYbr6As wsCzygcdQODgVQZcu64jnY S6keJePuImvFw9mLWbTWO7 HM1bqPmpvpswqLFxLBa4vD FtVIOrRwLheEuyy5BiQIhb LjQgeCAyLjEgeCAwLjQgY2 5zpJ4pVBglesDzDBYfIU3y ZWFoHHBpbINrvZ2mvwMytj UmuFNktHB8IXIdwQ7pxT51 nfYolhBSVL1boVZxLT0FYG BhciANClxjZjBcZnMyMiAN ClxwbGFpblxlcGljTmVzdE WbHuPueDbgsE89ALXpaVOf FQN0PX5fFQHptyodASHbMZ XhODG8YWnvsD76lINlRHWv HETedVMphT5El1epAEApnU VmSKO7EKwgdZCwDCIsZTZl FLooLlInV9TQRPAbHlBbQK E2BAKcJVz9LCy1IB5ZPtGf QQYjBMQnQiB4FPClDTl4GW psUW7MNCV3Mmq0HZK2MSY7 NTMyOCBcXHQgMiBcXGYgQX LeRNvpIZihlVRaBV8qrRqm hqN7AKJuEEddUDXvTEGxyX yhDAVEl3ieubFsINCmP9z8 W1EfS4HuOTgpZo0joMScNU 9AHFAhtBJUEJG1HL4qSRYO ClxsdHJwYXJcbGluMFxyaW 1gAN8XCMk4xzYeIRDjEHnp jiCjOHZzH6LgktLvVVikSX Sidi5gaVyhLFnyFoSgSYJh r2g3mDZ8tNBxhYH5fLWkiL ljFhEfTV8qrXTkLH7mUIjc YMufvwLix2FpIB13mLNgqn TpjaHvAOO0JlSiRFtuSJLx a7k2cVkyE28gl09pasqhsZ CdFKKlKC2nxU6gJbZyirCp A14lx5cntOWiv4OdwNMuwW lwbGUgdGFuLXBpbmssIHBl NMEaA0IeYOZmEXFcr6B4QY Los4D5MBCrMf80VQkjFg1h PLcxVS26HZSfHWrnEJKlP4 XrI6B6QZwoENZZyICwn6Xt N6otCL8hnKDhd9BrwFk4fJ WkILbbIMErmA8iaZ5kKjXg XHBhciANClxwYXIgDQpcY2 KjZJZsBlStNZhbgRudtF5e NCLoX42xv5MFz7JcJNLnHE cex3zyfLaxr6VwsZMcHXkx YJGvpDLcERdusZ1oMzBzr2 nbmBo2BOnckuS7GQTcku4F HyjcLungyJkqd4NuxVFoCS ayUVEkXHYgRPngKWLiZN9Z OqEmLKfPCgjnYFmuHaQ3RM c3OQMKUgCrCoLgOnarNLI0 EbRoSVw7DLh2AYmYQzV1PW Z3NKYmEqFqTLIvNsdeAAd4 IDIgXFxmIEFyaWFsIFxcZm bsRKrrC05vEeDuDufngJHg bkKGSkWVw7b5kJizD75hl7 5iOFCKywUhc5BbtzOtCufv FUQbOTiwAYQmD30ea7RXw8 JrXU2QYOp2hkZgvyzxpE8u UXGmbwYcPYrlfKMzQ7wuE6 UvASItEsVnCzPhTNv1PWOi sE3mNu6keXWoyU6oyDZbQU baELI9tVNaOONhWZNjGBUd EF83NMrRXAYxdtZpJJixgP VkaWNhbCByZWNvcmQgbnVt YmVyIGFuZCBcdTgyMjAgXC d5X9QveGxtDOOhk5xgvp13 kfHiq5AgppQqREDqaIWsQN 1hDejnmF11AOQgBVClZZQw qYwpTYyuCrQtvzZxM82et4 ccmXWcw8UtoMYmaHoajFKw dGFuLXBpbmssIHBlZHVuY3 IcFPPjSEIzz7R3QIVch6D9 JAQrEg7eFZqrSm4jQKnxPS 16LWGeKWihJRRvW4FbH2R2 SZtfECCJhHSie6QzV4pyBE 6hwNYjr2JtoBe7hRSvCVfj HHHhxY6pnF1qXLCfTSQdLF PdeoBLWxlyNLDmVJyKm3Kf lPakRCAbJ2h4e97fE7fqkM NzXHVUSIE5eGOiuoZqzVXi MI7PUHZmshAVHmhpNkFgFu MyMiANClxwbGFpblxlcGlj HrBftBDbIiZvmTqnlR50JX BbhTBgSTL9HB0tLHCinptl ZJFhELXhHOT7ZDktvD56uM OwPVPsVMLhaTUreW7UFADn AIB5LPyzkY47uEKsTK9ZNX KwGQI8TKIefDGiLAW1MY7u fQ0KfQ== MICROSCOPIC DESCRIPTION o3kjbBUzJOVleHS9QhRoXI (test code = 3371) Lcu2mfc4TyhDXmbHYjXFxw iQEoprWcwx01pPH2eD75GQ 8eVBBpMqR6QDDugiG1Nav8 UHJaCFKqxHNgR743m4jsk3 ywqkRftAL4rArjZCBdmdgf FxD4RWfdETHmbjiuYWc3ZU duGCPsjWT6QUJwqRIlS0Qb IUMzTL9yben8CVM8PTlqNC CmSiD6MMHtaNWqLPRkpNsz CHzvq340QNO3WhJhWHGdts FtzJbntG7gThWfHQJWMSQh z5QbFIOnYNNpnqipHUNrYC Bhcn0= [id number] 09:50:09 Test Item Value Reference Range Interpretation Comments Case Report (test code Surgical Pathology = 104) Report Case: [id number] Authorizing Provider: Angela Loco Collected: 07/03/2021 03:04 PM MD Brian Ordering Location: [address] Received: 07/06/2021 09:08 AM Service Pathologist: [...] clip x 1 DIAGNOSIS (test code = [id number] 3220) FuZzEwMzNcZnRuYmpcdWMx IHtccnRmMVxlcGljOTYwMV vigvBfMFVhjIOvE3Ujcakf UQvaVZ4jAQ8fcNvslTAyfH BxWNHeIjHis6zvy122bAQz n8zcTTBLimynjYp5uVmjK7 3hx2T7GywtF48jzIUpKDP4 DUViNVIifOHcJQLiWXW9ZS IhnGKiD6fyCOKqMB4zdkkj LIuqTExhWULlwYL2WJQahW PeV6BdZHXwJSbnKRMrbgp9 ZvBuTh6bxEQdjSjaSVusMY TiKHIoWEshTBOoDpBaMW9s J90FO13aXRGLJ7TZVDJFJY nOCXBFDV6WK9z1GCAedsXw LSAgVFVCVUxBUiBBREVOT0 3JBOSvwzwdFFWkGy0sG90M J33zZTBVW2oLH0WFQ5XQRC dUOpAOG5wCFTuyBpsLNJVG OrlcGJDuQO1aKM7FBIVGDY zKDHGEJSuDRR2MNhJTDiPX RMALONEEZPNAVR2XCXFpoV FyICAtICBORUdBVElWRSBG L0XrHNeYAC3XMmRGIZTBXZ TPJGZSXBGqX6TdXHWVKQmW NJ1KZZgkBIMatFPsFQAoCP IKUX5AACYFSJxVRG5UZ0DK GrPBBhrqBA6EGEXzTGPTX7 BTWTpccGFyICAtICBNVUxU SVBMRSBGUkFHTUVOVFMgT0 NwNJTQJEeDIhZDPRZGR36Z XHBhciAgLSAgTkVHQVRJVk AnDd1TEBwAR0duN3ECMHOb GImZFUkJN7aJHG6VOJ1ACH uBOrAFD4izuJDjOBCdrsXr jQAuILErFWFGRW0SSMETQo FXE3ZLLwAAXIIYDNyAJBZU PV5JL4s3PUGzymHhKTPiSG KIGZyBRPRtZyVKO62GMkVS FW3GGXREYhFBAQVyCIREMq 7YYWuuRAUgMV7qAP7IM3MM SVZFIEZPUiBISUdILUdSQU FHZYCBZ2RRLIQJNMTUMpWJ YKgZK10OSwVRZAStgl36YK Q0XmWgp2Y3DRM9VUBdHLLm c2cnRRDkpOQsEbDrWoLoHg QbUqytlUYoYIYtWgBzd6jg l522iKLbc8krHRUrJzG5eO UsSHZsdVEqG151ALSgULea i3bjy1AgXRVydBBlq2M1EA UBydqveMc9pUbrB65kx8G5 JpulT9ixMQKqJWStB5ChPQ 5hFQDfLet0ZDW1MVN8HSKg FQSoN0TwSX9hRLJcfTWdNL g2m4oseRzoENKtCIL1i9lj TQagtrAkUD7rge5ueNk9d8 xjczEgRGVmYXVsdCBQYXJh I9GsrWplXm3auLy0zSzxNh xvCFM9Lfo3JS3meg00hnl3 dZfeJZLhvblsThS6GRchDV HuqineMWw6LTyaCWMvwFF4 TEJtyXPvO4YoXFHdTH4ncq q6FDT9URogSQTcRlR3EVIt tYCrFCMppQxtGGnig636QB J9QeLyVF9sU5Hqc6I7sW0q aXRcZGVmdGFiNzIwXGZvcm 3tcVHnGDwvg4CaHUH2hcQ0 rCTyhKSuDOWcXgJ0ERfgZT 4yyg68AIPzEND7iw8imHFb kUswyuWsqTMgKJemH8NnQX Ffu383ETUzH2UcDXYbi2Y0 akNiOfEzFHFlwZG3teI2QC ZnEW3qzyzcs2fdOMxjBSsu QTLkpzL3bdL2AAHbaLSbK4 GlsE6kTIKoUS7hzmarv8cm JKM6LOdeZXPpMXO9UgTrLU Myt9Tcgbi9ViSfy1FezQDe UMeqI53mi135UKDisiMzP6 xwbGFpblxwbGFpblxmMFxm mvG3TWBlVIcxqkpuHPHhHY jeP5qsMjMoPSBedOxaNUew z3ZjTHHpHLDiWzFxxMZpLY LxZxh9LBRivCBwAJJsLvVt J9kxlzxsZwRXNMGex5daK0 gdbSCPhVYsL7WxXUlqlpNm YJjpQSlwTTXtQHT4FB2uWL IxQZOvqv83 CPT Code(s) (test code v3dofKQiHLEwdEL2PzOxGL = 4924) Onq7htw2EbqQWxbAFpHHdc bSHtlfMrxu13tXE9zC67KU 9lNPMiOgG3WNYguxJ5Mxb0 RKCkLWCsjJByC886q5chs3 nyckLkuPW5oPokJTYyqfgv OkZ4KOsfANMkgsepHKz9PO uyQTLewAU1DXZvbZNyF2Nw DVPfLB0xslm3HHA8BFvwOO OzPeT3UTGgmXZuPWJtmTkp KMcid848OXR6DjSaJYAjsl VccScgfI0cKqQyAHK4RTNb GQa3TVBpyg4= CLINICAL HISTORY (test q1zdxTHlZPVtjKU1KiLdHK code = 3356) Pib5aqo4ZuiWBsnDVyNWfv zRFgxaOoha14dWF8oK09DT 2cVURjLkM5WAQlxxN3Lcf1 IEHlVQCnlDZxA185p1vgg1 zzhxIijQF3QNEyUUCpD9Wi SS7oTNLgjATjT29djEUxWA D6SSJpACQqdBGpNMIrQKT3 JAZyuDAtH0efEVKeHJ0sii noEHidPOpuVCDeoZG9YVXa lVCaK1AsLBQaBCzdFPEupk z8BcMoQs1xwZYdtZroWUzz YXJkXHJpMVxwbGFpblxmcz GaAFFvTZEAxp7oLXRrVctw zEClI0jqBJ6phBjrICF0ab YyWEWyIgwoYYCedi4rUWVf BsynqJLnA7pzWR4rzYicBP I1jBTjAJJzll3= GROSS DESCRIPTION (test h3pfvPFlWTXmgDYEKNDkSz code = [id number]) wknzAtDUYdrMOuJ8Strsmt XQurAR3wKV2ynXulyCCktL HsZO7ZUUAgKuJwQRWhhAAa laNeLoRcBIXavLAwmRN3NN KdFE9vzmjtDTchPXmgRDLz veQ5SOOmuZQpX2RaQBXeEP 0vxepaKEF3GMggtA2ckcIH CvjyRp4niICxaMnoLvRpNt NoYXJzZXQwXGZuaWwgQXJp MMx7eE0AVyavB65eb8J8Fk e8HXXaDSHvG4KjAM6iQUMm lATkV76QTrnxNBT7FMSSLz xeVOYiVO6Tv5suVCZqqTDe KME6TRpmlGDvLWZxLWJpZQ t1CHWhQQabeWRhAM5sjRbz YjftfGmwg0BqbGKqUNtjAZ KyZYHkCEfjFNJsIO8SGcWk QQnDYfzxGJzzCpJ5XAq3DQ YYTeYeHdTfSzghFAV9XCuw MPw5JDj3UPtOVjJ0WVL7LM GaZBcnARUqZdynUYi9XLIw XFxmIEFyaWFsIFxcZmwgXF giT88srLtmqZ8tAM5hKR5x lLGgQMFtnZ9rGQ2cV2SojN 0uXHBhciANClxlcGljTmVz dERvYzEgDQpcbHRycGFyXG xpbjBccmluMCANClxsdHJj aFxjZjFcZnMyMCBSZWNlaX RuQKLccgWgu2YjIRevftRc YWJlbGVkIHdpdGggdGhlIH YzpImqpiDgX9K1wrVqVR6n NGXyRPTcM2BtNSQvN26fJE HrrY1nDKQxJE5tCNw5UKIp UVIiToqdcR3udAOdBURtiJ 6jGJYxQ7IpPjNlj76umSX2 qgCnQrFwRSQefr1toE9wNU Hfoo9eBEGxd0L6DBUff1P0 BHCtNC37OKsaUM2cGKdaQB 4xIGNtLCAwLjYgeCAwLjMg cSAtMwEpQ33xSmYdEKsrMU OqAJTmkJJwMWttCLR8Yh0z rXHlFGAfmzW2e2FgLKwkXW JrOkidJRCyJRgezRCjOI5J UWUfPEbvabCbYE6VQLYhMN yvWVPjsBFJANB5UQ0tFLlq nTYywhnxNCNqL6DdR8Ugpm UuhXZmRYJbuhMzv4uhTXH5 XHNsbXVsdDBcZnMxNlxwYX Z2PIm7KNedAOFwI5HsN5Dr ETomBHE5KMHdArJxXVFmZN XPIpVfJyMoWcR7Qae6HfAf RZi5KZalF6DKHSRkZAS8UB I5PAI4JmK0ZRr9KKLMOi9k EMClFGR1KbU1DVY0BlF3LJ xcdCAyIFxcZiBBcmlhbCBc HVMuHJsnvbF4VRShTVOauU akaJ7gVj3mIB6sxGAhAKKq jN7lNP5jZacbpNAdWJNvTP 0vgK7dMhqbMYZsPCanAGQm A40he3UTk1NaXR4FKWl8td HfnjlumT3cFYSowqZvLOon wZMnY9slD0MnLYAcWfCkWw PrAUd7SQFkmX1wAl1yhNQz eL7mePPuRLhyMGS1qNWfDK BxMPSrVZKwTH12UPnKZNXt bmFtZSwgbWVkaWNhbCByZW NvcmQgbnVtYmVyIGFuZCBc aAviDfOaBEc3M6KldNkfVM Sqc7xmqs6eiHcrdKLvo0Hc dgZldpfyKQAgMUMmt78khU M1ifJgFiDudIi0dITkGUS1 ND0cgEgtzwuxoKVaXGm3oR JhQCCdQeXorXlom3KoJOtd LjQgeCAyLjEgeCAwLjQgY2 6oeQ4qTZcniyWfFVNoDE0x KWLuGUVgrLSblI6zzbYcjh UiiWTwiRC5KVJvkS8sxP34 huNnydIEPX9lqCGpCW8NDP BhciANClxjZjBcZnMyMiAN ClxwbGFpblxlcGljTmVzdE RkEtPebVxbyT66AOFujAZo FZB9EX5vATBayxpeGMVwRV TvKET0GNdzlV29yJPqLIIc CPCocRArwX6Zs2akAXVriK BbMIT6BOrscDJlVZZmJUBn WMzjXhMsM3JWWBIoWiUiTC L4LDBjPJc4KLs2SN2UPaJl CLKaLTMmPoZ5WAXqCKc6RZ tjST0SPTI9Dyx9KOC7YDX3 NTMyOCBcXHQgMiBcXGYgQX TaTVrgADqitPGfPC2ayYoo lpO7WZBiZTatGQVuLTEfkY hiBLHJe0kfwuYlIBFfT7n5 H1AuP3UxAOiwAp2rgVHrJU 9DIWDygUVGCMS2UF0nIWVT ClxsdHJwYXJcbGluMFxyaW 0nZR5GUGs5pjYvAQZfPMic bxYfLXYrT4SzxnDeKUjsNI Ukcw9dsUueORkvHpYxXEJu w8d8wGD2mSCunUP1gDJlhG odZpSjDX7xmYYtTW4vXLnt INrfieHxg9CjSK53vJNmvo OjptIoLCP5DnBxISruPIDz g1r8sFtvD12yw35lvdzwhB HwHBEhDU4ciH7xVtDzvsUn S29dr5khjAHlb6DbmYQogF lwbGUgdGFuLXBpbmssIHBl HTEtY5WqMWOfPVFhj0E8QL Axc0I3CSVqJl53VBsyTd6h DAsmGW25NACeDFgmBJJqZ6 NnF2W1XCjoFTTLtSNoq2Ir L0vkUU4vyWLkh8KquKb3vP ZpKTtgUPFkfI2guR2yLmFy XHBhciANClxwYXIgDQpcY2 BcXFWjNzDqKNwnpYtahN9x TLRdF03ma1EIa6YhZRHcDH ppb1hiaOynv5EdeMQyKHqj ZFLibLUuZQxclH4jNaFqz1 ztuXb4OMdouzL8VECzkv9X KqrvWcbikKwrr9RjtRTgEE uiOSOhFTTrTSqdDJPjNU3U GcHwIUiHSkkeFNhlMbL3EI i6YYZTLyBzVdHiMxopBAR5 EnRpIWj4XBx9MZiJLkK7UI Z8BNLdRjFuCRLoLcigCOs9 IDIgXFxmIEFyaWFsIFxcZm ldSWdxU50tRzByUefyhIDx tdPMRrVKl5x9zHsiC04nr2 6dJLIWhqTwf2QkjtPaEnuz LKAhIHopPGNfM28nn2AEv8 QjVL1ZEGh6fpUmrgqgeN3u ZPRvbjJcDAxufYDjC6rlL1 YlGZNiQmPaWyIaIYu8TELo jA4zWb4moQCpaE1bkWBkOC rpAOT3bACuPVLgELJjIFOr WZ34ZEwNZDYdaeZdOMdlzB VkaWNhbCByZWNvcmQgbnVt YmVyIGFuZCBcdTgyMjAgXC h4M0NesEsoEVNbd9yhlu71 jzAey9NkhfPmBUIwwDRwWW 2kEmldsR54LPHkRWSpLNNd hCmvXGgaPyZbrnQvB93id9 ounLBdh6ThpYVwzTjnmDWe dGFuLXBpbmssIHBlZHVuY3 XiSVQjXFUkg1P1MKHqp3J6 BLHeLc5cKNdxWc6cZEbcGQ 73OCEdEGvvPNVnA1MsD7S1 EFzvGEZAsUZnf4WzJ6nvKT 9xaFNck4PlaNn8xEWjPSdy KNXbzP1ohJ8bXKLfLSZhRY KykmQJUkgqMURqZBiDw7Ik mRajQIJhB6b1n36wP3heuA DdLIADAXJ5rLVmzjJguCUc HM7TAOGlbtILCthgDmGyFr MyMiANClxwbGFpblxlcGlj HqNwpIVwDwJmmSkgrL29OH AyfFDgQTK7BK2vNVIvsbnp FTDpODDbLJY3TZjyuH52nA YjLMHsNRLgpQKvaN4NAGTy PRF2UUfgcP04dGEkWR7UGJ MyVMR0TGVpbTKaGOQ8UD7n fQ0KfQ== MICROSCOPIC DESCRIPTION m3deiBOaXCPhxNO7QvDdPH (test code = 3371) Avb1lok4TkpFQzbEYuASbj bUXmynIyzb20wAN2xX87BL 2nVKCqJbB4LKAqbuW2Zvy9 LPQfRMDvfURpU272a3sgy9 gimoUqbJH3oYmjZKSrwtii MzG7KSxqGUQktqqvXWx2FA gmPUOuyBQ6TJNjkPSeY6Wm JHOkSS2escn0AJV1KCdhDJ WrClJ1BFQzcDViQXVvbWlc DVciv506CPG3VdCiTFZhka TipHxuuH2nFpCmUSRJJAQg b8TmZFQwPTHgfchsZHMnJD Bhcn0= [facility] [id number] 09:50:09 Test Item Value Reference Range Interpretation Comments Case Report (test code Surgical Pathology = 104) Report Case: [id number] Authorizing Provider: Angela Loco Collected: 07/03/2021 03:04 PM MD Brian Ordering Location: [address] Received: 07/06/2021 09:08 AM Service Pathologist: [...] clip x 1 DIAGNOSIS (test code = [id number] 3220) FuZzEwMzNcZnRuYmpcdWMx IHtccnRmMVxlcGljOTYwMV hxkxEsRDMljWDxA4Jgybcz LPhlXW0nNW4woLnilBQqyH MpYQYjDmVfx7cam454cKGh b7rgLVRAojgvfZz3cFocE8 6tn1L0MrueU19gqAMrNZP6 CARuZSVtvOIbKQIkOIU6IK WtlDTqH1soUTXkXQ1kfurk OZptMLcxUKJeeWT8PFDiuD ZgR7LrEDSvHAidKPIiyxy3 CuAuZf7ubIWenOygURyjAK AnTLXnZVerHVWsOgIpXH2f F50US22iECYVS3YOFKOHXO tCTRZSXE0NV5g3KOEziyJe LSAgVFVCVUxBUiBBREVOT0 7HBLSwigneHSYsSw0cS35M R38rHHPTI6xWI8QDT0WTZF eOWyQNW0iTMGucIxtAMFUK LdduCHIlNP8aUI7JWCICQI eBMGNVGPdGEH8AUjCSYzCD XKAKQBUNTEXLOZ3FHAXxhM FyICAtICBORUdBVElWRSBG F0PaBBaRSE8KMoOVHCCODA YQCBAVTNYoP2PhWELWVSiB EW1XGMkjMBFsfQOlRDYnUA RPIF6XCBNYMQbTMO5XV6PS DfBMCwmjIV9QVDBoMBIHA6 BTWTpccGFyICAtICBNVUxU SVBMRSBGUkFHTUVOVFMgT0 TcGODGAVsBJuIKKZZWV72K XHBhciAgLSAgTkVHQVRJVk EdQl9YRAgKV0rzR5JHPTTk YDfBNIpUM0xMNB6GCC0QTW vRJtSBX0cuuLSeSPJiohPl rJRwVGOlSXXUSO3LWLUCWc WJV1UTEqGPZOBDMGaXJWET TE2EM7x3AWPzswPxZDTdYZ QEKOhXRUPoTcKCW70IPqUH SO5MEIRRQmPFKVRoFFEZEv 7HJXwrPVFwNY6wGF3MT0NJ SVZFIEZPUiBISUdILUdSQU OCTHMNR0HBVHNKDWZDBsFT WXvVY08BQeQWCSTvse79ZS F4SmVji9C2YQH6YZExFPRa u4jjVZVrhWGaDgCiDhYiGd CkQecjfBPbIVBhQtStl5ex t006fXWax5ecERAyYaS4vX OmHJMycVDqF901YEBmCKus k8mpy1TpUBIltXCtr0J1CP RYuvoktSw3hGadX00mu9J0 JburZ3xqQBCwZPOvF8UfRT 9cHZDtNgp4XJE9RYU6QCXd RSZbQ4UrFC3iJIKldGGpMP w0q5ddbZtnHQOuQSU0r6fd DGtynwQlFX6sxx4ltSr5l1 xjczEgRGVmYXVsdCBQYXJh Q1DdaUyzJq5glFu8yOuyYh pnKZB7Exk4HI2iyd37vel6 xQlwUJFdepgsAlE6DUhkBM RdqontVGr6YTxtVDXcwZD7 VPRtiGXhG9UiABGyRQ2ibo n6QOX2PUjdHWAqIuY3PFSm lAYhYDUjsVqiLSltt449EG E0VuJkKM8aO3Hnm9C4eD6t aXRcZGVmdGFiNzIwXGZvcm 9nhDJoRHysb9PeKIH7idT7 zANvyHRxQXEsLwE1ZEolDB 3hiy58ZIYrHDP0ro1uaIRw qOenqdNcmEPlPJghH4AeVP Jbx239VYGrM4FbAIOwy3J7 mdRkCeHpWEOwqCD7uvR2GE BrTM2gazruw1hkOEkrILih QZKlgbS6icX2LKNfjCXpZ9 FqwF2dNAYyXK3vyybmq2gw WHY6ENhtPXHtHIH2BxUhMX Bpi3Eppeq0HvMfz0DywFVn RSjeX00if752AODfavGgV1 xwbGFpblxwbGFpblxmMFxm wvE8LQMfRLanypozELQlZW roT4kjVpMhULUynPnsNRcb g2KrURQaYGUyZnHljRQxIT PgXmn4BRMhzQDrYWOiEeOk L1fpmgpzIoPQZIQhi1hbR1 sgzIHMxQQkL0ErYYqeewIs OQsyPVhjZWHkMOU7FS0pLR PvZHEybo21 CPT Code(s) (test code m3iwrUTjLZNrvEB9HoPwDF = 3357) Qvp2qky3RwjLIaeFOqXUag nVHevuEvhe85nTA9jH88NZ 7jKUFqMxZ8JSIvihH5Yew7 AGCtSBXvxSRxQ983h1cix9 tndbGpdZP3fOchPIZqhajx OqJ8EEvtCEDxdsxpSZu9UD zkRWHjbUQ8HIRleFJcA4Wa CWKqGW4rgsz4HVB6PLxjGQ RxGlW8YOFgiMOlSVMxbEcl KOswx370SXP1GaWcNRGtmf YpeWbxiC3vSdUvCGN0YHSe LTj8QHRjbj1= CLINICAL HISTORY (test e5eqjCTyPUMhqIQ5MaVgOI code = 3356) Hwg1oir6NclUVmfOZfFOcq rCKhfaYrgm47zAG1hC66HV 9kAKBoXsP5VLIuedX9Tad1 VWYtCTGmiHZxT925b2kbe9 ineaFeeST4HNOzBGOzE1Rv PV9iJAKimQPqZ21tiQKfCU O7DCTuIKNaoYBvVYMjBUB8 NXTggNWaA7uuJHRxOP8gwi cxKRtyPAejASJcbOE6KIFn zVOhT1ElQPXzSZhuULIhhu s7JfQiHk1bqPGdpOkfURpe YXJkXHJpMVxwbGFpblxmcz VbEVJcJVSVft8fSKJqUeko yXEbF7alTS1cqCpyTOY9bd LhTJRyZgmxAEBzpq8xROGt DfbcvLKjP9leRH0jxPdfGT W4nLKvNAPjsk6= GROSS DESCRIPTION (test h5qksEAvTBEzqYFHRCPwQf code = [id number]) xtweFhBMYqtBLmE2Epsmmb SOhcBC2cWR9srNvavBWzmC FmDJ3IBXHnVoLjJAHyvCQe ycPqUyGsDXGtcDSqjIK5XF ChBE5vzjwwUWbeSXonOXNm akK3AFSvbMIqN0AiWPMdJX 1qugpjKQE5BPrmfQ6eamHX IidpJw6mxMZxkKwlMhEpFo NoYXJzZXQwXGZuaWwgQXJp YWq5gW7SIasgL53ei9H2Md h7SHYdEVCgC6PxMZ7mGXXx lNNsP49CKubzROH4JBASBy vrAGNbET9El6tlCDLryCWg MKF2ZZqfvGBxKRAoKRWxDC m1XMSyKGpmxEZoGL7kyBlc QlplbTiwg6XhgTQmLEckSK CiHMMuYEjoDKShLZ9OQkVk POaJPxteHMhhNoZ1MQj0YY EZJySnAfRxDoolKXA6CKse LSl5LYh2QDvJXlQ9WTU1BA LxIEseMHByCmluLPk8EHVj XFxmIEFyaWFsIFxcZmwgXF bvT23baJcppJ0lQD9jGE5r eANdWLVxwS5qOP2gT1ZdcI 0uXHBhciANClxlcGljTmVz dERvYzEgDQpcbHRycGFyXG xpbjBccmluMCANClxsdHJj aFxjZjFcZnMyMCBSZWNlaX AaXLUcasNmb0QxCDuplbNx YWJlbGVkIHdpdGggdGhlIH MahEwwzcXrC1H2hfEdXE1n BXItARZpW6EpCDRnI13oCS NigA9wPJCmJQ9jGFu0SJNf VVLaDvxnxB0huGVwIPWczF 8gWXCdT4DjNiJkr46fkIK6 toDqDjZaOQMeud2qkN0bHT Siep1lCGQaw1O5QCMvd7L4 XAGiYU23PSwmNT2bPDycMM 4xIGNtLCAwLjYgeCAwLjMg aQRoAaRaE00lSkMkPMigVA WcKDXnwGXeCWnaMEO2Kk1j ySQvMICgceG7t4OoKYlkUW McKuyjSEJcDQrzbHHnJV8Q OAPnGXmprwPyZW8LJRYtUG vbUZIqrVCENIH8DS7vVQnd kZNwsbyyAWGlI2ZnL0Zoab PvuLZeACYtowBpe2soROQ1 XHNsbXVsdDBcZnMxNlxwYX G5AYv1WVnoGQLfQ4LoF4Nj AIapTMG9TCXoBlCbKGPpEE FHTxNzCpWwAvX5Efy0XcSn IWy9ZCtsT9ZEKGQrQPH3RD T0YGO3VzH5ZBl4XMFZWy4n PRJaIDY0AeJ5QVB1XjF9US xcdCAyIFxcZiBBcmlhbCBc XOXaPIretcG1XIFbDJHiiY pwoT2lAn9lWH3gxMIhBGBo rU2tOM2fItgxyHVaPOKqBC 1pfU6uZegrFDBoZXcjIYJi S94fu2ZLh1HkNI9CFVu1kq LxhpngyR7hCPLoqfHoCCnq wASmX2avV7JxDAZgYrUtWw CdAHs6XOAlrF0jDw8glMAd lL5sxCSoGXtdQFV1rJJgPF YdYUYaQJYcBP26TByACYHz bmFtZSwgbWVkaWNhbCByZW NvcmQgbnVtYmVyIGFuZCBc uVmsBzCjSSd3E2ZarLhcFS Qtx9ryrr7oiYgcfWNbs0Nq hbLfsuzkERDpADZtm19jlG U9kpBrGtEnpTm6hPCaLYJ8 BC8oyAfnyrsbhWFiWTm5aG BgSLQqKfBihYblo5AcROhz LjQgeCAyLjEgeCAwLjQgY2 2azV6jRLvkvzSyGNVwPA3r EANdQFBeyABgcO9vcuRbsn GwyEQxcUA2UQZmxL9jvC83 yfNinuBINF6wxYTuKC8EWO BhciANClxjZjBcZnMyMiAN ClxwbGFpblxlcGljTmVzdE NmMkYscUdshQ02UEHxeEOj YZO4GI8tVEWvpfrpIILoUY BzLGY2RBslcY80oMUrPBOh XUZlgYSfoV2Pw4baDSPnuS IhAYT3WPplqPExINTpNLVv UCytWlMbU7ARZXZcOaJtVO P1VGMcSTe1JSr4LC0XLnUg NJWzCJDpTkA4SNEkPRx0AQ kjOF6LOOH6Ktc6SGJ1ILT3 NTMyOCBcXHQgMiBcXGYgQX WgDTciCRogtKZmCY4bpMnu mbQ7RNJtIVhqTPKmKZYlhL coOYUNp3uzioWnAXIhX3q1 Y7MrE5WoALhkBe6zgUAtDS 0ZNSTjbFGDYII9ZP6lXKZK ClxsdHJwYXJcbGluMFxyaW 7rHW5ETMh2xvVyHPBlPCuf iuVbNHRkO7TogvNgGRkgUG Iglp0pmMezFUjgGsIgWEEq o3v0aHT4qWOfuEL5cFEvfK ecDfVlMN1edCHxMA0oZRrr TNtswkJiv7NnAR68xYIptw DoklXdMFW2YcIiUBdrFYAd q2n0yQkkS20vb54wgdngfF NbFINzIR2svK0wBtUrzsLr C48os2wmfOFbf4DfdXXxwR lwbGUgdGFuLXBpbmssIHBl XEFwM7YuHHFqWZMft1G9IO Fvw4J9LEHxLw89PCyfOx6v RLodFE66TVSdRHksFEDtY8 KlL0M1LSpyALSVgSNdl1Io V9glCY0uoSCpw6VkgLz1uE TjXCfaXHTfqY5mlR2nJpCl XHBhciANClxwYXIgDQpcY2 UyDWBiRtXgBUhvlLjkjM9b PBUpX70ui1THq4WeCJKdZQ lnk7qfrDdzx5NarBApTFlz GSDngBHaUKeikZ1pBcTrd2 rteKb5SHgnjxL6RMHdjv2S IklkWlrbjRwrz9AzqNYbAC joMRPpEAPlTZulBIXyAL6U AyTlEZeRFllwCQviWyE1BY r2PZKUDeWmFaViLeqjNUC5 NyXdGKw9CFi2NQxCQvK0OK R8FFFjItGqLFFaXpfuASo9 IDIgXFxmIEFyaWFsIFxcZm uuIRcwY32yWmDoPalhxAQd reXJSnUAp2p1tQjtH70dm6 4yJLIRjfDfk0CemqHtRgxt HINhZGqhTNJvU81gn9RXc6 SrST6UUJg4nkNffuvdmG9z SRXfvfLmCLdteTYjJ0noL7 SpSLEqCwNcTeZkGHr3PNWe pV3iNn7wnQXfiI0wqPJlQG chIET7mKDhJUQcLTWlKEWh VY35GCqYWLZddsZkYXmiiA VkaWNhbCByZWNvcmQgbnVt YmVyIGFuZCBcdTgyMjAgXC v8E4DoaLskFUArg9gnjl01 vpMyt2GdblGqELZmrQTnEK 9vPlphnG97TTItIMArHBOp xNuzQNmzHzUkhvObN01ud6 ivsEZzg3RukRPfxNtmuORv dGFuLXBpbmssIHBlZHVuY3 ZjPEHiXCSac5L0GMWmg9W2 KYWgAi7vQVtnDe9yJHgwAB 09NWCrAMvyTXOpM7LwC3S0 CPlhFTNHlOOgb6EcC1dpGP 8bbHEds4WanJk4vYCqMQwo EIRdkS6vaG3dUHKiNFAoME QjypBLMnnnFEXlRCtIg3Qt fYktNHChA0b8u82eZ8qgcJ CbMQJMRGG8dMMacaSxrOEo YZ2FQHMepyPFHuqbLgYlAk MyMiANClxwbGFpblxlcGlj MkEfsLPfReDojThbvH30NZ IboHVpMUM5CY4uNMNkaqjh CQOcJKRxJFY1PCoheX15rQ IkNUCsETJrhMOxtH7CIIWd TMW2ZVnduP52eHUrSD0DXA RbFWC3NEOriOSxSYS9TI2p fQ0KfQ== MICROSCOPIC DESCRIPTION e1whwMVjICUrvKJ5VqHuZH (test code = 3371) Lib9icp2JqyQWwwQKpLRpp iIAcrtBixu47qVJ1bY57ES 8xXYWfZwM4OFQcihG7Qls3 RJCnLAUowQWzE248d5vir6 wxuqPpuSB3fSelFEEimznl ZsM3CHwyNLYhwcfjJPd0RI vgSEGovDC7GUWhzSJjY7Vc OEJwHW9ypvn2LWF4KCzdKB IxTaT6VFGxjEPnGFPbbYyv QCnqu123AET4EwMbPRWeiz YxaKuwbN2nIvGmAFDOKANm m5MlXWKhMVNyckyzTTNpBP Bhcn0= [id number] 09:50:09Surgical Pathology Report Case: [id number] Authorizing Provider: Angela Loco Collected: 07/03/2021 03:04 PM MD Brian Ordering Location: [address] Received: 07/06/2021 09:08 AM Service Pathologist: Michelle Fernández MD Specimens: A) - Polyp, Colon - Cecum, x1 taken byhot snare B) - Polyp, Colon - Right/Ascending, x 1 taken by hot snare C) - Polyp, Colon - Right/Ascending, x 1 taken by hot snare, clip x 1 D) - Polyp, Colon - Transverse, x 1 taken by hot snare, clip x 1A. COLON, CECAL POLYP, BIOPSY: - TUBULAR ADENOMAB. COLON, RIGHT/ASCENDING POLYP, BIOPSY: - MULTIPLE FRAGMENTS OF TUBULAR ADENOMA - NEGATIVE FOR HIGH-GRADE DYSPLASIA OR MALIGNANCYC. COLON, RIGHT/ASCENDING POLYP, BIOPSY: - MULTIPLE FRAGMENTS OF TUBULAR ADENOMA - NEGATIVE FOR HIGH-GRADE DYSPLASIA OR MALIGNANCYD. COLON, TRANSVERSE POLYP, BIOPSY: - MULTIPLE FRAGMENTS OF TUBULAR ADENOMA - NEGATIVE FOR HIGH-GRADE DYSPLASIA OR MALIGNANCY Signing Pathologist Direct Phone Line: [phone] signed by Michelle Fernández MD on 07/07/2021 at 9:50 [id number] deficiency anemia, unspecified iron deficiency anemia type A. Polyp, Colon - Cecum.Received in formalin labeled with the patient's name, medical record number and "polyp, colon-cecum" consists of 2 robert-pink, ovoid soft tissue (0.5 x 0.2 x0.1 cm, 0.6 x 0.3 x 0.3 cm). [...] patient's name, medical record number and "polyp, uudno-pwdaqnjoak-1 taken by hot snare, clip x1" and consists of multiple robert- pink, pedunculated soft tissue (6.0 x 2.2 x 0.4 cm in aggregate). The specimen is submitted in toto in D1-D3.GRICELDA Andrew studentPerformed.POC- Glucose [id number] 08:45:23 Test Item Value Reference Range Interpretation Comments POC-Glucose Meter (test 92 mg/dL 70-110 : TE STED AT [facility] code = 1538) [address] [facility], [address]70 30: [employer] Machine Operator/Techni kelle ID = [id number] for ORPHEY, EDMUNDO Lab Interpretation (test Normal code = 16436-3) [facility]-Glucose [id number] 08:45:23 Test Item Value Reference Range Interpretation Comments POC-Glucose Meter (test 92 mg/dL 70-110 : TE STED AT [facility] code = 1538) [address] [place] [address], 770 30: [employer] Machine Operator/Techni kelle ID = [id number] for ORPHEY, EDMUNDO Lab Interpretation (test Normal code = 25286-2) [facility]-Glucose [id number] 08:45:23 Test Item Value Reference Range Interpretation Comments POC-Glucose Meter (test 92 mg/dL 70-110 : TE STED AT [facility] code = 1538) [address] [place] [address], 770 30: [employer] Machine Operator/Techni kelle ID = [id number] for ORPHEY, EDMUNDO Lab Interpretation (test Normal code = 12060-7) [facility]-Glucose [id number] 08:45:23 Test Item Value Reference Range Interpretation Comments POC-Glucose Meter (test 92 mg/dL 70-110 : TE STED AT [facility] code = 1538) [address] [place] [address], 770 30: [employer] Machine Operator/Techni kelle ID = [id number] for ORPHEY, EDMUNDO Lab Interpretation (test Normal code = 94235-5) [facility]-Glucose [id number] 08:45:23 Test Item Value Reference Range Interpretation Comments POC-Glucose Meter (test 92 mg/dL 70-110 : TE STED AT [facility] code = 1538) [address] [place] [address], 770 30: [employer] Machine Operator/Techni kelle ID = [id number] for ORPHEY, EDMUNDO Lab Interpretation (test Normal code = 42202-9) [facility]-Glucose [id number] 08:45:23 Test Item Value Reference Range Interpretation Comments POC-Glucose Meter (test 92 mg/dL 70-110 : TE STED AT [facility] code = 1538) [address] [place] [address], 770 30: [employer] Machine Operator/Techni kelle ID = [id number] for ORPHEY, EDMUNDO Lab Interpretation (test Normal code = 85864-0) [facility] [id number] 08:45:23 Test Item Value Reference Range Interpretation Comments POC-Glucose Meter (test 92 mg/dL 70-110 : TE STED AT [facility] code = 1538) [address] [place], [address]: [employer] Machine Operator/Techni kelle ID = [id number] for ORDENIJOELDANIELIS Lab Interpretation (test Normal code = 69464-8) [facility] [id number] 08:45:23 Test Item Value Reference Range Interpretation Comments POC-GLUCOSE METER 92 mg/dL 70-110 : TESTED A T [facility] 6720 (BEAKER) (test code = [facility], 1538) [address]: [employer] Machine Operator/Techni kelle ID = [id number] for ORDENI MALDONADO, EDMUNDO RAD, CHEST, 1 VIEW, NON [id number] 07:59:00Reason for exam:->post-opShould this be performed at the bedside?->Yes [facility] : 1955 Sex: FFINAL [...] Bayron Cosme Verified Date/Time:07/04/2021 07:59:51 BASIC METABOLIC [id number] 06:24:45 Test Item Value Reference Range Interpretation [...] S NOT APPLICABLE FOR DIALYSIS PATIEN TS. [employer] Machine Operator ID - [id number] 06:15:51 Test Item Value Reference Range Interpretation Comments MAGNESIUM (BEAKER) (test code = 1.9 mg/dL 1.6-2.6 627) [employer] Machine Operator ID - [id number] 06:15:51 Test Item Value Reference Range Interpretation Comments PHOSPHORUS (BEAKER) (test code = 3.1 mg/dL 2.3-4.7 604) [employer] Machine Operator ID - [id number] (HEMOGRAM ONLY)2021-07-04 05:44:21 [...] Not Detected, (test code = Negative, See 42650-3) external report for linked test SARS-COV-2 [facility] (test code = 96094-9) BRANDI (test code = Negative result for [...] of the Act. Fact Sheet for Healthcare Providers:https://www.appMobi/sites/default/f radha/product/documents/F act_Sheet_HC_Providers_L ttj_EXZT-ReV-9.pdf Fact Sheet for Healthcare Patients:https://www.[employer]/sites/default/fi les/product/documents/Fa ct_Sheet_Patients_Lyra_S ARS-CoV-2.pdf Performing Laboratory:[facility], [place] [address] [place], [place] [address]ARS-CoV2/RT-PCR (Asymptomatic ONLY)2021-07-04 00:21:04 Test Item Value Reference Range Interpretation Comments SARS-COV2/RT-PCR Negative Not Detected, (test code = Negative, See 32524-7) external report for linked test SARS-COV-2 [facility] PERFORMING LAB (test code = 56539-1) BRANDI (test code = Negative result for [...] of the Act. Fact Sheet for Healthcare Providers:https://www.[employer]/sites/default/f radha/product/documents/F act_Sheet_HC_Providers_L gpm_IRNY-AvQ-8.pdf Fact Sheet for Healthcare Patients:https://www.[employer]/sites/default/fi les/product/documents/Fa ct_Sheet_Patients_Lyra_S ARS-CoV-2.pdf Performing Laboratory:[facility], [place] [address] [place], [place] [address]ARS-CoV2/RT-PCR (Asymptomatic ONLY)2021-07-04 00:21:04 Test Item Value Reference Range Interpretation Comments SARS-COV2/RT-PCR Negative Not Detected, (test code = Negative, See 91364-0) external report for linked test SARS-COV-2 [facility] PERFORMING LAB (test code = 54008-1) BRANDI (test code = Negative result for [...] of the Act. Fact Sheet for Healthcare Providers:https://www.[employer]/sites/default/f radha/product/documents/F act_Sheet_HC_Providers_L oey_KITD-GoV-4.pdf Fact Sheet for Healthcare Patients:https://www.[employer]/sites/default/fi les/product/documents/Fa ct_Sheet_Patients_Lyra_S ARS-CoV-2.pdf Performing Laboratory:[facility] [place] [address] [facility]2021-07-04 00:21:04 Test Item Value Reference Range Interpretation Comments SARS-COV2/RT-PCR Negative Not Detected, (test code = Negative, See 48028-8) external report for linked test SARS-COV-2 [facility] PERFORMING LAB (test code = 04040-0) BRANDI (test code = Negative result for [...] of the Act. Fact Sheet for Healthcare Providers:https://www.[employer]/sites/default/f radha/product/documents/F act_Sheet_HC_Providers_L oew_WTNJ-QwS-4.pdf Fact Sheet for Healthcare Patients:https://www.[employer]/sites/default/fi les/product/documents/Fa ct_Sheet_Patients_Lyra_S ARS-CoV-2.pdf Performing Laboratory:[facility] [place] [address] [facility] ONLY)2021-07-04 00:21:04 Test Item Value Reference Range Interpretation Comments SARS-COV2/RT-PCR Negative Not Detected, (test code = Negative, See 75578-5) external report for linked test SARS-COV-2 [facility] PERFORMING LAB (test code = 65424-3) BRANDI (test code = Negative result for [...] of the Act. Fact Sheet for Healthcare Providers:https://www.[employer]/sites/default/f radha/product/documents/F act_Sheet_HC_Providers_L svn_HTCX-XkP-8.pdf Fact Sheet for Healthcare Patients:https://www.[employer]/sites/default/fi les/product/documents/Fa ct_Sheet_Patients_Lyra_S ARS-CoV-2.pdf Performing Laboratory:[facility] [place] [address] [facility] (Asymptomatic ONLY)2021-07-04 00:21:04 Test Item Value Reference Range Interpretation Comments SARS-COV2/RT-PCR Negative Not Detected, (test code = Negative, See 49028-2) external report for linked test SARS-COV-2 [facility] PERFORMING LAB (test code = 40073-1) BRANDI (test code = Negative result for [...] of the Act. Fact Sheet for Healthcare Providers:https://www.[employer]/sites/default/f radha/product/documents/F act_Sheet_HC_Providers_L bap_JVEE-BgI-6.pdf Fact Sheet for Healthcare Patients:https://www.[employer]/sites/default/fi les/product/documents/Fa ct_Sheet_Patients_Lyra_S ARS-CoV-2.pdf Performing Laboratory:[facility] [place] [address] [facility]As[facility]omatic ONLY)2021-07-04 00:21:04 Test Item Value Reference Range Interpretation Comments SARS-COV2/RT-PCR Negative Not Detected, (test code = Negative, See 39616-8) external report for linked test SARS-COV-2 [facility] PERFORMING LAB (test code = 35826-7) BRANDI (test code = Negative result for [...] of the Act. Fact Sheet for Healthcare Providers:https://www.[employer]/sites/default/f radha/product/documents/F act_Sheet_HC_Providers_L osr_XWXM-LzY-9.pdf Fact Sheet for Healthcare Patients:https://www.[employer]/sites/default/fi les/product/documents/Fa ct_Sheet_Patients_Lyra_S ARS-CoV-2.pdf Performing Laboratory:[place] [address] [place] [address] [facility] ([facility])2021-07-04 00:21:04 Test Item Value Reference Range Interpretation Comments SARS-COV2/RT-PCR (test Negative Not Detected, Negative, code = 8099951) See external report for linked test SARS-COV-[address] [facility] (test code = 2731951) Negative result for this test determines that [...] of the Act.Fact Sheet for Healthcare Prov iders:https://www.[employer]/sites/default/files/product/documents/Fact_Sheet_HC _Xetovhams_Tnkt_TUTL-IfK-8.pdfFact Sheet for Healthcare Patients:https://www.[employer]/sites/default/files/product/docume nts/Cxkt_Qxpml_Xailwask_Gnyt_FRAA-XtH-9.pdfPerforming Laboratory:[facility], [place] [address]GCXR-IXYOVYL METER 2021-07-03 21:29:18 Test Item Value Reference Range Interpretation Comments POC-GLUCOSE METER 169 mg/dL 70-110 H : TESTED A T [facility] 6720 (BEAKER) (test code = [facility], 1538) 00270: Paper Products Machine Operator/Techni kelle ID = [id number] for Co rtez, [place] POCT-GLUCOSE [id number] 17:51:28 Test Item Value Reference Range Interpretation Comments POC-GLUCOSE METER 110 mg/dL 70-110 : TESTED A T [facility] 6720 (BEAKER) (test code = [facility], 1538) 91523: Paper Products Machine Operator/Techni kelle ID = [id number] for OR EDMUNDO BOWIE POCT-GLUCOSE [id number] 16:18:01 Test Item Value Reference Range Interpretation Comments POC-GLUCOSE METER 78 mg/dL 70-110 : TESTED A T [facility] 6720 (BEAKER) (test code = [facility], 1538) 61846: Paper Products Machine Operator/Techni kelle ID = [id number] for Sarwat Arenas POC-Glucose [id number] 13:43:00 Test Item Value Reference Range Interpretation Comments POC-Glucose Meter (test 82 mg/dL 70-110 : TE STED AT [facility] code = 1538) 6720 [facility], 770 30: Paper Products Machine Operator/Techni kelle ID = [id number] for RENETTA STEARNS Lab Interpretation (test Normal code = 05148-9) [facility] [id number] 13:43:00 Test Item Value Reference Range Interpretation Comments POC-GLUCOSE METER 82 mg/dL 70-110 : TESTED A T [facility] 6720 (BEAKER) (test code = [facility], 153) 88165: Paper Products Machine Operator/Techni kelle ID = [id number] for RENETTA STEARNS POCT-GLUCOSE [id number] 08:55:17 Test Item Value Reference Range Interpretation Comments POC-GLUCOSE METER 85 mg/dL 70-110 : TESTED A T [facility] 6720 (BEAKER) (test code = [place], 1538) 26912: Paper Products Machine Operator/Techni kelle ID = [id number] for EDMUNDO DÍAZ RAD, CHEST, 1 VIEW, NON [id number] 07:19:00Reason for exam:->post-opShould this be performed at the bedside?->Yes [facility] 1955 Sex: [...] Conteh Verified Date/Time: 07/03/2021 07:19:27 Reading Location: [facility] Radiology Reading Room BASIC METABOLIC [id number] 04:12:43 Test Item Value Reference Range Interpretation [...] S NOT APPLICABLE FOR DIALYSIS PATIEN TS. Paper Products Machine Operator ID - RAKAN [id number] 03:43:29 Test Item Value Reference Range Interpretation Comments MAGNESIUM (BEAKER) (test code = 2.1 mg/dL 1.6-2.6 627) Paper Products Machine Operator ID Bassam RAKAN [id number] 03:43:29 Test Item Value Reference Range Interpretation Comments PHOSPHORUS (BEAKER) (test code = 3.4 mg/dL 2.3-4.7 604) Paper Products Machine Operator ID - RAKAN WCBC (HEMOGRAM ONLY)2021-07-03 [...] WBC 0-0 (test code = 413) POC-Glucose [id number] 21:37:50 Test Item Value Reference Range Interpretation Comments POC-Glucose Meter (test 97 mg/dL 70-110 : TE STED AT [facility] code = 1538) 67[address] [facility], 770 30: Paper Products Machine Operator/Techni kelle ID = [id number] for WASHINGTON MACKENZIE Lab Interpretation (test Normal code = 57313-3) [facility] [id number] 21:37:50 Test Item Value Reference Range Interpretation Comments POC-GLUCOSE METER 97 mg/dL 70-110 : TESTED A T [facility] 6720 (BEAKER) (test code = [facility], 153) 87123: Paper Products Machine Operator/Techni kelle ID = [id number] for NATALIA RO MACKENZIE POCT-GLUCOSE [id number] 18:00:54 Test Item Value Reference Range Interpretation Comments POC-GLUCOSE METER 166 mg/dL 70-110 H : TESTED A T [facility] 6720 (BEAKER) (test code = [facility], 153) 67381: Paper Products Machine Operator/Techni kelle ID = [id number] for Ba rrera, Kayla POCT-GLUCOSE [id number] 13:01:12 Test Item Value Reference Range Interpretation Comments POC-GLUCOSE METER 169 mg/dL 70-110 H : TESTED A T [facility] 6720 (BEAKER) (test code = [facility], 153) 16953: Paper Products Machine Operator/Techni kelle ID = [id number] for Ba rrera, Kayla POC-Glucose [id number] 08:45:07 Test Item Value Reference Range Interpretation Comments POC-Glucose Meter (test 134 mg/dL 70-110 H : TE STED AT [facility] code = 1538) [address] [facility], 770 30: Paper Products Machine Operator/Techni kelle ID = [id number] for Nawaf Freitas Lab Interpretation (test Abnormal code = 71735-0) [facility] [id number] 08:45:07 Test Item Value Reference Range Interpretation Comments POC-GLUCOSE METER 134 mg/dL 70-110 H : TESTED A T [facility] 6720 ([place]) (test code = [place], 1538) 44222: Paper Products Machine Operator/Techni kelle ID = [id number] for Kayla Emanuel RAD, CHEST, 1 VIEW, NON [id number] 08:36:00Reason for exam:->post-opShould this be performed at the bedside?->Yes [facility] 1955 Sex: FFINAL [...] or small pleural effusion. Signed: Boogie Conteh MDRjasonort Verified Date/Time: 07/02/2021 08:36:36Reading Location: [facility] Radiology Reading Room Basic Metabolic [id number] 07:06:58 Test Item Value Reference Range Interpretation Comments Sodium (test code = 137 meq/L 218-749 5916-2) Potassium (test code = 3.9 meq/L 3.5-5.1 2823-3) Chloride (test code = 101 meq/L 98-107 2075-0) CO2 (test code = 28 meq/L 22-29 2028-9) BUN (test code = 23 mg/dL 7-21 H 3094-0) Creatinine (test code 3.16 mg/dL 0.57-1.25 H = 2160-0) Glucose (test code = 150 mg/dL 70-105 H 2345-7) Calcium (test code = 8.1 mg/dL 8.4-10.2 L 24887-2) EGFR (test code = 15 mL/min/1.73 [place] [address]-7) NOT ACCURATE CREATININE CLEARANCE IN PREDICTING GLOMERULAR FILTRATION RATE . ESTIMATED GFR I S NOT APPLICABLE FOR DIALYSIS PATIENTS. BRANDI (test code = BRANDI) Paper Products Machine Operator ID - PIAYA L Lab Interpretation Abnormal (test code = 59877-1) [facility] METABOLIC [id number] 07:06:58 Test Item Value Reference Range Interpretation [...] S NOT APPLICABLE FOR DIALYSIS PATIEN TS. Paper Products Machine Operator ID - PIAYAD CNbxyleqmu7789-52-64 07:06:52 Test Item Value Reference Range Interpretation Comments Magnesium (test code = 1.9 mg/dL 1.6-2.6 24594-1) BRANDI (test code = BRANDI) Paper Products Machine Operator ID - LIANA L Lab Interpretation (test Normal code = 35881-9) [facility]2022-03-31 07:06:52 Test Item Value Reference Range Interpretation Comments Phosphorus (test code = 2.6 mg/dL 2.3-4.7 2777-1) BRANDI (test code = BRANDI) Paper Products Machine Operator ID - LIANA L Lab Interpretation (test Normal code = 37082-2) [facility]UM2022-03-31 07:06:52 Test Item Value Reference Range Interpretation Comments MAGNESIUM (BEAKER) (test code = 1.9 mg/dL 1.6-2.6 627) Paper Products Machine Operator ID - LIANA [id number] 07:06:52 Test Item Value Reference Range Interpretation Comments PHOSPHORUS (BEAKER) (test code = 2.6 mg/dL 2.3-4.7 604) Paper Products Machine Operator ID - LIANA LCBC (Hemogram only)2021-07-02 05:56:49 Test Item Value Reference Range Interpretation Comments WBC (test code = 6690-2) 4.6 See_Comment [A utomated message] The system [employer] generated this result transmitted ref erence range: 3.5 - 10 .5 K/L. The refe rence range was not u sed to interpret this result as normal/abnor mal. RBC (test code = 789-8) 2.50 See_Comment L [Au tomated message] The system [employer] generated this result transmitted ref erence range: 3.93 - 5 .22 M/L. The refe rence range was not u sed to interpret this result as normal/abnor mal. MCHC (test code = 786-4) 31.9 See_Comment L [A utomated message] The system [employer] generated this result transmitted ref erence range: [...] L [Aut omated message] 777-3) The system [employer] generated this result transmitted ref erence range: 150 - 45 0 K/CU MM. The referen ce range was not u sed to interpret this result as normal/abnor mal. MPV (test code = 11.3 fL 9.4-12.3 62303-2) nRBC (test code = 413) 0 See_Comment [Aut omated message] The system [employer] generated this result transmitted ref erence range: 0 - 0 /1 00 WBC. The refere nce range was not u sed to interpret this result as normal/abnor mal. Lab Interpretation (test Abnormal code = 22700-3) [facility] (HEMOGRAM ONLY)2021-07-02 05:56:49 Test Item [...] WBC 0-0 (test code = 413) POCT-GLUCOSE [id number] 21:57:03 Test Item Value Reference Range Interpretation Comments POC-GLUCOSE METER 179 mg/dL 70-110 H : TESTED A T [facility] 6720 (BEAKER) (test code = [facility], 1538) 72126: Paper Products Machine Operator/Techni kelle ID = [id number] for MACKENZIE GONZALEZ POCT-GLUCOSE [id number] 17:59:08 Test Item Value Reference Range Interpretation Comments POC-GLUCOSE METER 208 mg/dL 70-110 H : TESTED A T [facility] 6720 (BEAKER) (test code = [facility], 153) 28680: Paper Products Machine Operator/Techni kelle ID = [id number] for Loco Hicks POCT-GLUCOSE [id number] 13:37:14 Test Item Value Reference Range Interpretation Comments POC-GLUCOSE METER 118 mg/dL 70-110 H : TESTED A T [facility] 6720 (BEAKER) (test code = [facility], 153) 83986: Paper Products Machine Operator/Techni kelle ID = [id number] for Millie Toledo RAD, CHEST, 1 VIEW, NON [id number] 09:58:00Reason for exam:->post-opShould this be performed at the bedside?->Yes [facility] LINDSAY : 1955 Sex: [...] MDReport Verified Date/Time: 07/01/2021 09:58:13 Reading Location: [facility] Radiology Reading Room POC-Glucose [id number] 08:48:09 Test Item Value Reference Range Interpretation Comments POC-Glucose Meter (test 127 mg/dL 70-110 H : TE STED AT [facility] code = 1538) 6720 [facility], 770 30: Paper Products Machine Operator/Techni kelle ID = [id number] for Loco Chapman Lab Interpretation (test Abnormal code = 20054-8) [facility] [id number] 08:48:09 Test Item Value Reference Range Interpretation Comments POC-GLUCOSE METER 127 mg/dL 70-110 H : TESTED A T [facility] 6720 (BEAKER) (test code = [facility], 1538) 33457: Paper Products Machine Operator/Techni kelle ID = [id number] for Zachary ramosjaden Loco Basic Metabolic [id number] 06:34:36 Test Item Value Reference Range Interpretation [...] (test code = 8.2 mg/dL 8.4-10.2 L 09218-5) EGFR (test code = 10 mL/min/1.[place] [address]-4) NOT ACCURATE CREATININE CLEARANCE IN PREDICTING GLOMERULAR FILTRATION RATE . ESTIMATED GFR I S NOT APPLICABLE FOR DIALYSIS PATIENTS. BRANDI (test code = BRANDI) Paper Products Machine Operator ID - PIAYA L Lab Interpretation Abnormal (test code = 30255-7) [facility]OL[facility] [id number] 06:34:36 Test Item Value Reference Range Interpretation [...] S NOT APPLICABLE FOR DIALYSIS PATIEN TS. Paper Products Machine Operator ID - PIAYA DRsnwtftcd2129-92-70 06:26:43 Test Item Value Reference Range Interpretation Comments Magnesium (test code = 2.1 mg/dL 1.6-2.6 41008-8) BRANDI (test code = BRANDI) Paper Products Machine Operator ID - PIAYA L Lab Interpretation (test Normal code = 76237-7) [facility]2022-03-30 06:26:43 Test Item Value Reference Range Interpretation Comments Phosphorus (test code = 3.6 mg/dL 2.3-4.7 2777-1) BRANDI (test code = BRANDI) Paper Products Machine Operator ID - LIANA L Lab Interpretation (test Normal code = 14202-6) [facility]bob[facility]XOTHHG8923-[facility] 06:26:43 Test Item Value Reference Range Interpretation Comments MAGNESIUM (BEAKER) (test code = 2.1 mg/dL 1.6-2.6 627) Paper Products Machine Operator ID - LIANA TOATQHGGDIE5171-90-46 06:26:43 Test Item Value Reference Range Interpretation Comments PHOSPHORUS (BEAKER) (test code = 3.6 mg/dL 2.3-4.7 604) Paper Products Machine Operator ID - LIANA LCBC (Hemogram only)2021-07-01 05:41:20 Test Item Value Reference Range Interpretation Comments WBC (test code = 6690-2) 4.8 See_Comment [A utomated message] The system [employer] generated this result transmitted ref erence range: 3.5 - 10 .5 K/L. The refe rence range was not u sed to interpret this result as normal/abnor mal. RBC (test code = 789-8) 2.60 See_Comment L [Au tomated message] The system [employer] generated this result transmitted ref erence range: 3.93 - 5 .22 M/L. The refe rence range was not u sed to interpret this result as normal/abnor mal. MCHC (test code = 786-4) 32.1 See_Comment L [A utomated message] The system [employer] generated this result transmitted ref erence range: [...] = 75 See_Comment L [Aut omated message] 147-3) The system [employer] generated this result transmitted ref erence range: 150 - 45 0 K/CU MM. The referen ce range was not u sed to interpret this result as normal/abnor mal. MPV (test code = 11.3 fL 9.4-12.3 28158-5) nRBC (test code = 413) 0 See_Comment [Aut omated message] The system [employer] h generated this result transmitted ref erence range: 0 - 0 /1 00 WBC. The refere nce range was not u sed to interpret this result as normal/abnor mal. Lab Interpretation (test Abnormal code = 11972-1) [facility] (HEMOGRAM ONLY)2021-07-01 05:41:20 Test Item [...] WBC 0-0 (test code = 413) POCT-GLUCOSE [id number] 21:14:47 Test Item Value Reference Range Interpretation Comments POC-GLUCOSE METER 159 mg/dL 70-110 H : TESTED A T [facility] 6720 (BEAKER) (test code = [place], 1538) 16772: Paper Products Machine Operator/Techni kelle ID = [id number] for RO MACKENZIE DANIELS RAD, ABDOMEN/KUB, 1 VIEW [id number] 18:59:00Reason for exam:- >constipationShould this be performed at the bedside?->Yes [facility] : 1955 Sex: FFINAL REPORT Exam: RAD, ABDOMEN/KUB, 1 VIEW APDate: 06/30/2021 6:58 PM Indication:constipation COMPARISON: 06/24/2021 DISCUSSION/IMPRESSION: The lower thorax is within normal limits. Nonspecific bowel gas pattern. No evidence of free air within the limitations of this study. Signed: Kb Gregorio Verified Date/Time: 06/30/2021 18:59:30 Reading Location: [address] Reading Room POCT-GLUCOSE [id number] 17:39:03 Test Item Value Reference Range Interpretation Comments POC-GLUCOSE METER 204 mg/dL 70-110 H : TESTED A T [facility] 6720 ([place]) (test code = QUIQUEMO Nola [facility], 153) 60126: Paper Products Machine Operator/Techni kelle ID = [id number] for OR EDMUNDO BOWIE POCT-GLUCOSE [id number] 12:35:41 Test Item Value Reference Range Interpretation Comments POC-GLUCOSE METER 136 mg/dL 70-110 H : TESTED A T [facility] 6720 ([place]) (test code = YUDY [place] [facility], 1538) 05030: Paper Products Machine Operator/Techni kelle ID = [id number] for OR PHEY, EDMUNDO RAD, CHEST, 1 VIEW, NON [id number] 09:21:00Reason for exam:->post-opShould this be performed at the bedside?->Yes [facility] : 1955 Sex: [...] Conteh Verified Date/Time: 06/30/2021 09:21:42 Reading Location: [facility] Radiology Reading Room POCT-GLUCOSE [id number] 08:26:49 Test Item Value Reference Range Interpretation Comments POC-GLUCOSE METER 132 mg/dL 70-110 H : TESTED A T [facility] 6720 (AKASH) (test code = YUDY [place] [facility], 1538) 17284: Paper Products Machine Operator/Techni kelle ID = [id number] for OR PHEY, EDMUNDO BASIC METABOLIC [id number] 05:31:46 Test Item Value Reference Range Interpretation [...] S NOT APPLICABLE FOR DIALYSIS PATIEN TS. Paper Products Machine Operator ID - LIANA KWZUFHLFCA7878-23-99 05:28:01 Test Item Value Reference Range Interpretation Comments MAGNESIUM (BEAKER) (test code = 1.8 mg/dL 1.6-2.6 627) Paper Products Machine Operator ID - BURKEAYAD OPAQADVEGMB8252-38-45 05:28:01 Test Item Value Reference Range Interpretation Comments PHOSPHORUS (BEAKER) (test code = 2.6 mg/dL 2.3-4.7 604) Paper Products Machine Operator ID - LIANA LCBC (HEMOGRAM ONLY)2021-06-30 [...] 0-0 (test code = 413) Prepare Leuko-Red [id number] 23:54:00 Test Item Value Reference Range Interpretation Comments CROSSMATCH (test code = 2264) COMPATIBLE Unit ABO (test code = O Pos 2652912) UNIT NUMBER (test code = [id number] 934-0) Status (test code = 3329761) [facility] Blood Bank Product (test code RED BLOOD CELLS = 2263) PRODUCT CODE (test code = [id number] 933-2) [facility] [id number] 23:54:00 Test Item Value Reference Range Interpretation Comments CROSSMATCH (test code = 2264) COMPATIBLE Unit ABO (test code = O Pos 8159599) UNIT NUMBER (test code = [id number] 934-0) Status (test code = 4269850) [facility] Blood Bank Product (test code RED BLOOD CELLS = 2263) PRODUCT CODE (test code = [id number] 933-2) [facility]uko[facility]Red [id number] 23:54:00 Test Item Value Reference Range Interpretation Comments CROSSMATCH (test code = 2264) COMPATIBLE Unit ABO (test code = O Pos 7821347) UNIT NUMBER (test code = [id number] 934-0) Status (test code = 0764592) [place]_TIMEINCHART Blood Bank Product (test code RED BLOOD CELLS = 2263) PRODUCT CODE (test code = [id number] 933-2) [facility]Red [id number] 23:54:00 Test Item Value Reference Range Interpretation Comments CROSSMATCH (test code = 2264) COMPATIBLE Unit ABO (test code = O Pos 8641315) UNIT NUMBER (test code = [id number] 934-0) Status (test code = 0624558) [place]_TIMEINCHART Blood Bank Product (test code RED BLOOD CELLS = 2263) PRODUCT CODE (test code = [id number] 933-2) [facility]Red [id number] 23:54:00 Test Item Value Reference Range Interpretation Comments CROSSMATCH (test code = 2264) COMPATIBLE Unit ABO (test code = O Pos 6966879) UNIT NUMBER (test code = [id number] 934-0) Status (test code = 9446059) [place]_TIMEINCHART Blood Bank Product (test code RED BLOOD CELLS = 2263) PRODUCT CODE (test code = [id number] 933-2) [facility] HospitalPre[facility] Leuko-Red [id number] 23:54:00 Test Item Value Reference Range Interpretation Comments CROSSMATCH (test code = 2264) COMPATIBLE Unit ABO (test code = O Pos [id number]) UNIT NUMBER (test code = [id number] 934-0) Status (test code = 3580992) TX_TIMEINCHART Blood Bank Product (test code RED BLOOD CELLS = 2263) PRODUCT CODE (test code = [id number] 933-2) [facility] [id number] 23:54:00 Test Item Value Reference Range Interpretation Comments CROSSMATCH (test code = 2264) COMPATIBLE Unit ABO (test code = O Pos 9909269) UNIT NUMBER (test code = [id number] 934-0) Status (test code = 1648413) TX_TIMEINCHART Blood Bank Product (test code RED BLOOD CELLS = 2263) PRODUCT CODE (test code = J4670P48 933-2) [facility] [id number] 23:54:00 Test Item Value Reference Range Interpretation Comments CROSSMATCH (test code = 2264) COMPATIBLE Unit ABO (test code = O Pos 8442907) UNIT NUMBER (test code = [id number] 934-0) Status (test code = 9957260) TX_TIMEINCHART Blood Bank Product (test code RED BLOOD CELLS = 2263) PRODUCT CODE (test code = Q1038K83 933-2) [facility] [id number] 23:54:00 Test Item Value Reference Range Interpretation Comments CROSSMATCH (test code = 2264) COMPATIBLE Unit ABO (test code = O Pos 6818440) UNIT NUMBER (test code = [id number] 934-0) Status (test code = 4247295) TX_TIMEINCHART Blood Bank Product (test code RED BLOOD CELLS = 2263) PRODUCT CODE (test code = Q0589O76 933-2) [facility] [id number] 23:54:00 Test Item Value Reference Range Interpretation Comments CROSSMATCH (test code = 2264) COMPATIBLE Unit ABO (test code = O Pos 1157877) UNIT NUMBER (test code = [id number] 934-0) Status (test code = 0149113) TX_TIMEINCHART Blood Bank Product (test code RED BLOOD CELLS = 2263) PRODUCT CODE (test code = K5502P07 933-2) [facility] [id number] 23:54:00 Test Item Value Reference Range Interpretation Comments CROSSMATCH (test code = 2264) COMPATIBLE Unit ABO (test code = O Pos 6585271) UNIT NUMBER (test code = [id number] 934-0) Status (test code = 9528819) TX_TIMEINCHART Blood Bank Product (test code RED BLOOD CELLS = 2263) PRODUCT CODE (test code = H0439P42 933-2) [facility] [id number] 22:04:06 Test Item Value Reference Range Interpretation Comments POC-GLUCOSE METER 149 mg/dL 70-110 H : TESTED A T [facility] 6720 (BEAKER) (test code = YUDY [place], 1538) [address]: Paper Products Machine Operator/Techni kelle ID = [id number] for Federico Overton pastora POCT-GLUCOSE [id number] 17:55:17 Test Item Value Reference Range Interpretation Comments POC-GLUCOSE METER 150 mg/dL 70-110 H : TESTED A T [facility] 6720 (AKASH) (test code = YUDY V[place] [facility], 1538) [address]: Paper Products Machine Operator/Techni kelle ID = [id number] for OR EDMUNDO BOWIE POCT-GLUCOSE [id number] 15:31:47 Test Item Value Reference Range Interpretation Comments POC-GLUCOSE METER 155 mg/dL 70-110 H : TESTED A T [facility] 6720 (AKASH) (test code = YUDY [place]ITE [place], 1538) [address]: Paper Products Machine Operator/Techni kelle ID = [id number] for OR PHEY, EDMUNDO RAD, CHEST, 1 VIEW, NON [id number] 10:41:00Reason for exam:->post-opShould this be performed at the bedside?->Yes [facility] 1955 Sex: FFINAL [...] Conteh Verified Date/Time: 06/29/2021 10:41:18 Reading Location: [facility] Radiology Reading Room POC-Glucose [id number] 08:51:04 Test Item Value Reference Range Interpretation Comments POC-Glucose Meter (test 208 mg/dL 70-110 H : TE STED AT [facility] code = 1538) [address] [facility], 770 30: Paper Products Machine Operator/Techni kelle ID = [id number] for EDMUNDO BARRAGAN Lab Interpretation (test Abnormal code = 88144-1) [facility] [id number] 08:51:04 Test Item Value Reference Range Interpretation Comments POC-Glucose Meter (test 208 mg/dL 70-110 H : TE STED AT [facility] code = 1538) [address] [facility], 770 30: Paper Products Machine Operator/Techni kelle ID = [id number] for ORPHEY, EDMUNDO Lab Interpretation (test Abnormal code = 53056-0) [facility]-GLU[facility]SE [id number] 08:51:04 Test Item Value Reference Range Interpretation Comments POC-GLUCOSE METER 208 mg/dL 70-110 H : TESTED A T [facility] 6720 (BEAKER) (test code = YUDY R [facility], 1538) [address]: [employer] Machine Operator/Techni kelle ID = [id number] for OR EDMUNDO BOWIE Basic Metabolic [id number] 06:07:27 Test Item Value Reference Range Interpretation [...] (test code = 8.0 mg/dL 8.4-10.2 L 12582-4) EGFR (test code = 9 mL/min/1.73 [place] [address]-1) NOT ACCURATE CREATININE CLEARANCE IN PREDICTING GLOMERULAR FILTRATION RATE . ESTIMATED GFR I S NOT APPLICABLE FOR DIALYSIS PATIENTS. BRANDI (test code = BRANDI) [employer] Machine Operator ID - HIEN M Lab Interpretation Abnormal (test code = 32887-0) [facility] Metabolic [id number] 06:07:27 Test Item Value Reference Range Interpretation [...] (test code = 8.0 mg/dL 8.4-10.2 L 66581-1) EGFR (test code = 9 mL/min/1.[place] [address]-0) NOT ACCURATE CREATININE CLEARANCE IN PREDICTING GLOMERULAR FILTRATION RATE . ESTIMATED GFR I S NOT APPLICABLE FOR DIALYSIS PATIENTS. BRANDI (test code = BRANDI) [employer] Machine Operator ID - HIEN M Lab Interpretation Abnormal (test code = 82780-8) [facility] Metabolic [id number] 06:07:27 Test Item Value Reference Range Interpretation [...] (test code = 8.0 mg/dL 8.4-10.2 L 71239-0) EGFR (test code = 9 mL/min/1.[place] [address]-8) NOT ACCURATE CREATININE CLEARANCE IN PREDICTING GLOMERULAR FILTRATION RATE . ESTIMATED GFR I S NOT APPLICABLE FOR DIALYSIS PATIENTS. BRANDI (test code = BRANDI) [employer] Machine Operator NORAH Hernandes Lab Interpretation Abnormal (test code = 04832-0) [facility] [id number] 06:07:27 Test Item Value Reference Range Interpretation [...] S NOT APPLICABLE FOR DIALYSIS PATIEN TS. [employer] Machine Operator NORAH STANFORD [id number] 06:05:44 Test Item Value Reference Range Interpretation Comments Phosphorus (test code = 2.5 mg/dL 2.3-4.7 2777-1) BRANDI (test code = BRANDI) [employer] Machine Operator NORAH STANFORD M Lab Interpretation (test Normal code = 70093-5) [facility] 06:05:44 Test Item Value Reference Range Interpretation Comments Phosphorus (test code = 2.5 mg/dL 2.3-4.7 2777-1) BRANDI (test code = BRANDI) [employer] Machine Operator ID - HIEN M Lab Interpretation (test Normal code = 37218-1) [facility] 06:05:44 Test Item Value Reference Range Interpretation Comments Phosphorus (test code = 2.5 mg/dL 2.3-4.7 2777-1) BRANDI (test code = BRANDI) [employer] Machine Operator ID - HIEN Lab Interpretation (test Normal code = 95919-4) [facility] 06:05[facility]44 Test Item Value Reference Range Interpretation Comments PHOSPHORUS (BEAKER) (test code = 2.5 mg/dL 2.3-4.7 604) [employer] Machine Operator ID - HIEN EFccsfgpxt6310-28-52 06:05:43 Test Item Value Reference Range Interpretation Comments Magnesium (test code = 2.2 mg/dL 1.6-2.6 29038-9) BRANDI (test code = BRANDI) [employer] Machine Operator ID - HIEN Lab Interpretation (test Normal code = 80488-1) [facility]2022-03-28 06:05:43 Test Item Value Reference Range Interpretation Comments Magnesium (test code = 2.2 mg/dL 1.6-2.6 38696-9) BRANDI (test code = BRANDI) Paper Products Machine Operator ID - [facility] Lab Interpretation (test Normal code = 67968-0) [facility]2022-03-28 06:05:43 Test Item Value Reference Range Interpretation Comments Magnesium (test code = 2.2 mg/dL 1.6-2.6 62738-6) BRANDI (test code = BRANDI) [employer] Machine Operator ID - HIEN Lab Interpretation (test Normal code = 48658-6) [facility]2022-03-28 06:05:43 Test Item Value Reference Range Interpretation Comments MAGNESIUM (BEAKER) (test code = 2.2 mg/dL 1.6-2.6 627) Paper [employer] Machine Operator ID - HIEN [facility] (Hemogram only)2021-06-29 05:32:19 Test Item Value Reference Range Interpretation Comments WBC (test code = 6690-2) 4.7 See_Comment [A utomated message] The system [employer] generated this result transmitted ref erence range: 3.5 - 10 .5 K/L. The refe rence range was not u sed to interpret this result as normal/abnor mal. RBC (test code = 789-8) 2.94 See_Comment L [Au tomated message] The system [employer] generated this result transmitted ref erence range: 3.93 - 5 .22 M/L. The refe rence range was not u sed to interpret this result as normal/abnor mal. MCHC (test code = 786-4) 31.8 See_Comment L [A utomated message] The system [employer] generated this result transmitted ref erence range: [...] L [Aut omated message] 777-3) The system [employer] generated this result transmitted ref erence range: 150 - 45 0 K/CU MM. The referen ce range was not u sed to interpret this result as normal/abnor mal. MPV (test code = 12.2 fL 9.4-12.3 92143-7) nRBC (test code = 413) 0 See_Comment [Aut omated message] The system [employer] generated this result transmitted ref erence range: 0 - 0 /1 00 WBC. The refere nce range was not u sed to interpret this result as normal/abnor mal. Lab Interpretation (test Abnormal code = 92747-1) [facility] (Hemogram only)2021-06-29 05:32:19 Test Item Value Reference Range Interpretation Comments WBC (test code = 6690-2) 4.7 See_Comment [A utomated message] The system [employer] generated this result transmitted ref erence range: 3.5 - 10 .5 K/L. The refe rence range was not u sed to interpret this result as normal/abnor mal. RBC (test code = 789-8) 2.94 See_Comment L [Au tomated message] The system [employer] generated this result transmitted ref erence range: 3.93 - 5 .22 M/L. The refe rence range was not u sed to interpret this result as normal/abnor mal. MCHC (test code = 786-4) 31.8 See_Comment L [A utomated message] The system [employer] generated this result transmitted ref erence range: [...] L [Aut omated message] 777-3) The system [employer] generated this result transmitted ref erence range: 150 - 45 0 K/CU MM. The referen ce range was not u sed to interpret this result as normal/abnor mal. MPV (test code = 12.2 fL 9.4-12.3 83028-3) nRBC (test code = 413) 0 See_Comment [Aut omated message] The system [employer] generated this result transmitted ref erence range: 0 - 0 /1 00 WBC. The refere nce range was not u sed to interpret this result as normal/abnor mal. Lab Interpretation (test Abnormal code = 18374-7) [facility] (Hemogram only)2021-06-29 05:32:19 Test Item Value Reference Range Interpretation Comments WBC (test code = 6690-2) 4.7 See_Comment [A utomated message] The system [employer] generated this result transmitted ref erence range: 3.5 - 10 .5 K/L. The refe rence range was not u sed to interpret this result as normal/abnor mal. RBC (test code = 789-8) 2.94 See_Comment L [Au tomated message] The system [employer] generated this result transmitted ref erence range: 3.93 - 5 .22 M/L. The refe rence range was not u sed to interpret this result as normal/abnor mal. MCHC (test code = 786-4) 31.8 See_Comment L [A utomated message] The system [employer] generated this result transmitted ref erence range: [...] L [Aut omated message] 777-3) The system [employer] generated this result transmitted ref erence range: 150 - 45 0 K/CU MM. The referen ce range was not u sed to interpret this result as normal/abnor mal. MPV (test code = 12.2 fL 9.4-12.3 71343-6) nRBC (test code = 413) 0 See_Comment [Aut omated message] The system [employer] generated this result transmitted ref erence range: 0 - 0 /1 00 WBC. The refere nce range was not u sed to interpret this result as normal/abnor mal. Lab Interpretation (test Abnormal code = 49374-0) [facility] (HEMOGRAM ONLY)2021-06-29 05:32:19 Test Item [...] WBC 0-0 (test code = 413) POC-Glucose [id number] 19:54:37 Test Item Value Reference Range Interpretation Comments POC-Glucose Meter (test 188 mg/dL 70-110 H : TE STED AT [facility] code = 1538) [address] [facility], 770 30: Paper Products Machine Operator/Techni kelle ID = [id number] for RAMON SPRING Lab Interpretation (test Abnormal code = 40697-3) [facility] [id number] 19:54:37 Test Item Value Reference Range Interpretation Comments POC-GLUCOSE METER 188 mg/dL 70-110 H : [facility] (BEAKER) (test code = [facility], 1538) [address]: Paper Products Machine Operator/Techni kelle ID = [id number] for BURKE BRIZUELA RAMON POCT-GLUCOSE [id number] 17:33:41 Test Item Value Reference Range Interpretation Comments POC-GLUCOSE METER 166 mg/dL 70-110 H : [facility] (BEAKER) (test code = [facility], 1538) 98507: Paper Products Machine Operator/Techni kelle ID = [id number] for Nitin hansen Kayla CBC with platelet count + automated [id number] 15:34:06 Test Item Value Reference Range Interpretation Comments WBC (test code = 6690-2) 4.6 See_Comment [A utomated message] The system [employer] generated this result transmitted ref erence range: 3.5 - 10 .5 K/L. The refe rence range was not u sed to interpret this result as normal/abnor mal. RBC (test code = 789-8) 2.86 See_Comment L [Au tomated message] The system [employer] generated this result transmitted ref erence range: 3.93 - 5 .22 M/L. The refe rence range was not u sed to interpret this result as normal/abnor mal. MCHC (test code = 786-4) 32.1 See_Comment L [A utomated message] The system [employer] generated this result transmitted ref erence range: [...] L [Aut omated message] 777-3) The system [employer] generated this result transmitted ref erence range: 150 - 45 0 K/CU MM. The referen ce range was not u sed to interpret this result as normal/abnor mal. MPV (test code = 11.0 fL 9.4-12.3 55247-5) nRBC (test code = 413) 0 See_Comment [Aut omated message] The system [employer] generated this result transmitted ref erence range: [...] See_Comment [Aut omated message] 670) The system [employer] generated this result transmitted ref erence range: 1.56 - 6 .13 K/L. The refe rence range was not u sed to interpret this result as normal/abnor mal. # Lymphs (test code = 0.73 See_Comment L [Auto mated message] 414) The system [employer] generated this result transmitted ref erence range: 1.18 - 3 .74 K/L. The refe rence range was not u sed to interpret this result as normal/abnor mal. # Monos (test code = 0.62 See_Comment H [Autom ated message] 415) The system [employer] generated this result transmitted ref erence range: 0.24 - 0 .36 K/L. The refe rence range was not u sed to interpret this result as normal/abnor mal. # Eos (test code = 416) 0.24 See_Comment [Au tomated message] The system [employer] generated this result transmitted ref erence range: 0.04 - 0 .36 K/L. The refe rence range was not u sed to interpret this result as normal/abnor mal. # Baso (test code = 417) 0.04 See_Comment [A utomated message] The system [employer] generated this result transmitted ref erence range: 0.01 - 0 .08 K/L. The refe rence range was not u sed to interpret this result as normal/abnor mal. Immature 0 % 0-1 Granulocytes-Relative (test code = 2801) Lab Interpretation (test Abnormal code = 06174-8) [facility] with platelet count + automated [id number] 15:34:06 Test Item Value Reference Range Interpretation Comments WBC (test code = 6690-2) 4.6 See_Comment [A utomated message] The system [employer] generated this result transmitted ref erence range: 3.5 - 10 .5 K/L. The refe rence range was not u sed to interpret this result as normal/abnor mal. RBC (test code = 789-8) 2.86 See_Comment L [Au tomated message] The system [employer] generated this result transmitted ref erence range: 3.93 - 5 .22 M/L. The refe rence range was not u sed to interpret this result as normal/abnor mal. MCHC (test code = 786-4) 32.1 See_Comment L [A utomated message] The system [employer] generated this result transmitted ref erence range: [...] L [Aut omated message] 777-3) The system [employer] generated this result transmitted ref erence range: 150 - 45 0 K/CU MM. The referen ce range was not u sed to interpret this result as normal/abnor mal. MPV (test code = 11.0 fL 9.4-12.3 35860-4) nRBC (test code = 413) 0 See_Comment [Aut omated message] The system [employer] generated this result transmitted ref erence range: [...] See_Comment [Aut omated message] 670) The system [employer] generated this result transmitted ref erence range: 1.56 - 6 .13 K/L. The refe rence range was not u sed to interpret this result as normal/abnor mal. # Lymphs (test code = 0.73 See_Comment L [Auto mated message] 414) The system [employer] generated this result transmitted ref erence range: 1.18 - 3 .74 K/L. The refe rence range was not u sed to interpret this result as normal/abnor mal. # Monos (test code = 0.62 See_Comment H [Autom ated message] 415) The system [employer] generated this result transmitted ref erence range: 0.24 - 0 .36 K/L. The refe rence range was not u sed to interpret this result as normal/abnor mal. # Eos (test code = 416) 0.24 See_Comment [Au tomated message] The system [employer] generated this result transmitted ref erence range: 0.04 - 0 .36 K/L. The refe rence range was not u sed to interpret this result as normal/abnor mal. # Baso (test code = 417) 0.04 See_Comment [A utomated message] The system [employer] generated this result transmitted ref erence range: 0.01 - 0 .08 K/L. The refe rence range was not u sed to interpret this result as normal/abnor mal. Immature 0 % 0-1 Granulocytes-Relative (test code = 2801) Lab Interpretation (test Abnormal code = 85653-0) [facility] with platelet count + automated [id number] 15:34:06 Test Item Value Reference Range Interpretation Comments WBC (test code = 6690-2) 4.6 See_Comment [A utomated message] The system [employer] generated this result transmitted ref erence range: 3.5 - 10 .5 K/L. The refe rence range was not u sed to interpret this result as normal/abnor mal. RBC (test code = 789-8) 2.86 See_Comment L [Au tomated message] The system [employer] generated this result transmitted ref erence range: 3.93 - 5 .22 M/L. The refe rence range was not u sed to interpret this result as normal/abnor mal. MCHC (test code = 786-4) 32.1 See_Comment L [A utomated message] The system [employer] generated this result transmitted ref erence range: [...] L [Aut omated message] 777-3) The system [employer] generated this result transmitted ref erence range: 150 - 45 0 K/CU MM. The referen ce range was not u sed to interpret this result as normal/abnor mal. MPV (test code = 11.0 fL 9.4-12.3 57932-9) nRBC (test code = 413) 0 See_Comment [Aut omated message] The system [employer] generated this result transmitted ref erence range: [...] See_Comment [Aut omated message] 670) The system [employer] generated this result transmitted ref erence range: 1.56 - 6 .13 K/L. The refe rence range was not u sed to interpret this result as normal/abnor mal. # Lymphs (test code = 0.73 See_Comment L [Auto mated message] 414) The system [employer] generated this result transmitted ref erence range: 1.18 - 3 .74 K/L. The refe rence range was not u sed to interpret this result as normal/abnor mal. # Monos (test code = 0.62 See_Comment H [Autom ated message] 415) The system [employer] generated this result transmitted ref erence range: 0.24 - 0 .36 K/L. The refe rence range was not u sed to interpret this result as normal/abnor mal. # Eos (test code = 416) 0.24 See_Comment [Au tomated message] The system [employer] generated this result transmitted ref erence range: 0.04 - 0 .36 K/L. The refe rence range was not u sed to interpret this result as normal/abnor mal. # Baso (test code = 417) 0.04 See_Comment [A utomated message] The system [employer] generated this result transmitted ref erence range: 0.01 - 0 .08 K/L. The refe rence range was not u sed to interpret this result as normal/abnor mal. Immature 0 % 0-1 Granulocytes-Relative (test code = 2801) Lab Interpretation (test Abnormal code = 29489-2) [facility] with platelet count + automated [id number] 15:34:06 Test Item Value Reference Range Interpretation Comments WBC (test code = 6690-2) 4.6 See_Comment [A utomated message] The system [employer] generated this result transmitted ref erence range: 3.5 - 10 .5 K/L. The refe rence range was not u sed to interpret this result as normal/abnor mal. RBC (test code = 789-8) 2.86 See_Comment L [Au tomated message] The system [employer] generated this result transmitted ref erence range: 3.93 - 5 .22 M/L. The refe rence range was not u sed to interpret this result as normal/abnor mal. MCHC (test code = 786-4) 32.1 See_Comment L [A utomated message] The system [employer] generated this result transmitted ref erence range: [...] L [Aut omated message] 777-3) The system [employer] generated this result transmitted ref erence range: 150 - 45 0 K/CU MM. The referen ce range was not u sed to interpret this result as normal/abnor mal. MPV (test code = 11.0 fL 9.4-12.3 22865-7) nRBC (test code = 413) 0 See_Comment [Aut omated message] The system [employer] generated this result transmitted ref erence range: [...] See_Comment [Aut omated message] 670) The system [employer] generated this result transmitted ref erence range: 1.56 - 6 .13 K/L. The refe rence range was not u sed to interpret this result as normal/abnor mal. # Lymphs (test code = 0.73 See_Comment L [Auto mated message] 414) The system [employer] generated this result transmitted ref erence range: 1.18 - 3 .74 K/L. The refe rence range was not u sed to interpret this result as normal/abnor mal. # Monos (test code = 0.62 See_Comment H [Autom ated message] 415) The system [employer] generated this result transmitted ref erence range: 0.24 - 0 .36 K/L. The refe rence range was not u sed to interpret this result as normal/abnor mal. # Eos (test code = 416) 0.24 See_Comment [Au tomated message] The system [employer] generated this result transmitted ref erence range: 0.04 - 0 .36 K/L. The refe rence range was not u sed to interpret this result as normal/abnor mal. # Baso (test code = 417) 0.04 See_Comment [A utomated message] The system [employer] generated this result transmitted ref erence range: 0.01 - 0 .08 K/L. The refe rence range was not u sed to interpret this result as normal/abnor mal. Immature 0 % 0-1 Granulocytes-Relative (test code = 2801) Lab Interpretation (test Abnormal code = 02129-2) [facility] [id number] 15:34:06 Test Item Value Reference Range Interpretation Comments WBC (test code = 6690-2) 4.6 See_Comment [A utomated message] The system [employer] generated this result transmitted ref erence range: 3.5 - 10 .5 K/L. The refe rence range was not u sed to interpret this result as normal/abnor mal. RBC (test code = 789-8) 2.86 See_Comment L [Au tomated message] The system [employer] generated this result transmitted ref erence range: 3.93 - 5 .22 M/L. The refe rence range was not u sed to interpret this result as normal/abnor mal. MCHC (test code = 786-4) 32.1 See_Comment L [A utomated message] The system [employer] generated this result transmitted ref erence range: [...] L [Aut omated message] 777-3) The system [employer] generated this result transmitted ref erence range: 150 - 45 0 K/CU MM. The referen ce range was not u sed to interpret this result as normal/abnor mal. MPV (test code = 11.0 fL 9.4-12.3 06031-2) nRBC (test code = 413) 0 See_Comment [Aut omated message] The system [employer] generated this result transmitted ref erence range: [...] See_Comment [Aut omated message] 670) The system [employer] generated this result transmitted ref erence range: 1.56 - 6 .13 K/L. The refe rence range was not u sed to interpret this result as normal/abnor mal. # Lymphs (test code = 0.73 See_Comment L [Auto mated message] 414) The system [employer] generated this result transmitted ref erence range: 1.18 - 3 .74 K/L. The refe rence range was not u sed to interpret this result as normal/abnor mal. # Monos (test code = 0.62 See_Comment H [Autom ated message] 415) The system [employer] generated this result transmitted ref erence range: 0.24 - 0 .36 K/L. The refe rence range was not u sed to interpret this result as normal/abnor mal. # Eos (test code = 416) 0.24 See_Comment [Au tomated message] The system [employer] generated this result transmitted ref erence range: 0.04 - 0 .36 K/L. The refe rence range was not u sed to interpret this result as normal/abnor mal. # Baso (test code = 417) 0.04 See_Comment [A utomated message] The system [employer] generated this result transmitted ref erence range: 0.01 - 0 .08 K/L. The refe rence range was not u sed to interpret this result as normal/abnor mal. Immature 0 % 0-1 Granulocytes-Relative (test code = 2801) Lab Interpretation (test Abnormal code = 00986-5) [facility] with platelet count + automated [id number] 15:34:06 Test Item Value Reference Range Interpretation Comments WBC (test code = 6690-2) 4.6 See_Comment [A utomated message] The system [employer] generated this result transmitted ref erence range: 3.5 - 10 .5 K/L. The refe rence range was not u sed to interpret this result as normal/abnor mal. RBC (test code = 789-8) 2.86 See_Comment L [Au tomated message] The system [employer] generated this result transmitted ref erence range: 3.93 - 5 .22 M/L. The refe rence range was not u sed to interpret this result as normal/abnor mal. MCHC (test code = 786-4) 32.1 See_Comment L [A utomated message] The system [employer] generated this result transmitted ref erence range: [...] L [Aut omated message] 777-3) The system [employer] generated this result transmitted ref erence range: 150 - 45 0 K/CU MM. The referen ce range was not u sed to interpret this result as normal/abnor mal. MPV (test code = 11.0 fL 9.4-12.3 29884-3) nRBC (test code = 413) 0 See_Comment [Aut omated message] The system [employer] generated this result transmitted ref erence range: [...] See_Comment [Aut omated message] 670) The system [employer] generated this result transmitted ref erence range: 1.56 - 6 .13 K/L. The refe rence range was not u sed to interpret this result as normal/abnor mal. # Lymphs (test code = 0.73 See_Comment L [Auto mated message] 414) The system [employer] generated this result transmitted ref erence range: 1.18 - 3 .74 K/L. The refe rence range was not u sed to interpret this result as normal/abnor mal. # Monos (test code = 0.62 See_Comment H [Autom ated message] 415) The system [employer] generated this result transmitted ref erence range: 0.24 - 0 .36 K/L. The refe rence range was not u sed to interpret this result as normal/abnor mal. # Eos (test code = 416) 0.24 See_Comment [Au tomated message] The system [employer] generated this result transmitted ref erence range: 0.04 - 0 .36 K/L. The refe rence range was not u sed to interpret this result as normal/abnor mal. # Baso (test code = 417) 0.04 See_Comment [A utomated message] The system [employer] generated this result transmitted ref erence range: 0.01 - 0 .08 K/L. The refe rence range was not u sed to interpret this result as normal/abnor mal. Immature 0 % 0-1 Granulocytes-Relative (test code = 2801) Lab Interpretation (test Abnormal code = 96327-2) [facility] with platelet count + automated [id number] 15:34:06 Test Item Value Reference Range Interpretation Comments WBC (test code = 6690-2) 4.6 See_Comment [A utomated message] The system [employer] generated this result transmitted ref erence range: 3.5 - 10 .5 K/L. The refe rence range was not u sed to interpret this result as normal/abnor mal. RBC (test code = 789-8) 2.86 See_Comment L [Au tomated message] The system [employer] generated this result transmitted ref erence range: 3.93 - 5 .22 M/L. The refe rence range was not u sed to interpret this result as normal/abnor mal. MCHC (test code = 786-4) 32.1 See_Comment L [A utomated message] The system [employer] generated this result transmitted ref erence range: [...] L [Aut omated message] 777-3) The system [employer] generated this result transmitted ref erence range: 150 - 45 0 K/CU MM. The referen ce range was not u sed to interpret this result as normal/abnor mal. MPV (test code = 11.0 fL 9.4-12.3 11198-5) nRBC (test code = 413) 0 See_Comment [Aut omated message] The system [employer] generated this result transmitted ref erence range: [...] See_Comment [Aut omated message] 670) The system [employer] generated this result transmitted ref erence range: 1.56 - 6 .13 K/L. The refe rence range was not u sed to interpret this result as normal/abnor mal. # Lymphs (test code = 0.73 See_Comment L [Auto mated message] 414) The system [employer] generated this result transmitted ref erence range: 1.18 - 3 .74 K/L. The refe rence range was not u sed to interpret this result as normal/abnor mal. # Monos (test code = 0.62 See_Comment H [Autom ated message] 415) The system [employer] generated this result transmitted ref erence range: 0.24 - 0 .36 K/L. The refe rence range was not u sed to interpret this result as normal/abnor mal. # Eos (test code = 416) 0.24 See_Comment [Au tomated message] The system [employer] generated this result transmitted ref erence range: 0.04 - 0 .36 K/L. The refe rence range was not u sed to interpret this result as normal/abnor mal. # Baso (test code = 417) 0.04 See_Comment [A utomated message] The system [employer] generated this result transmitted ref erence range: 0.01 - 0 .08 K/L. The refe rence range was not u sed to interpret this result as normal/abnor mal. Immature 0 % 0-1 Granulocytes-Relative (test code = 2801) Lab Interpretation (test Abnormal code = 95098-2) [facility] with platelet count + automated [id number] 15:34:06 Test Item Value Reference Range Interpretation Comments WBC (test code = 6690-2) 4.6 See_Comment [A utomated message] The system [employer] generated this result transmitted ref erence range: 3.5 - 10 .5 K/L. The refe rence range was not u sed to interpret this result as normal/abnor mal. RBC (test code = 789-8) 2.86 See_Comment L [Au tomated message] The system [employer] generated this result transmitted ref erence range: 3.93 - 5 .22 M/L. The refe rence range was not u sed to interpret this result as normal/abnor mal. MCHC (test code = 786-4) 32.1 See_Comment L [A utomated message] The system [employer] generated this result transmitted ref erence range: [...] L [Aut omated message] 777-3) The system [employer] generated this result transmitted ref erence range: 150 - 45 0 K/CU MM. The referen ce range was not u sed to interpret this result as normal/abnor mal. MPV (test code = 11.0 fL 9.4-12.3 66308-1) nRBC (test code = 413) 0 See_Comment [Aut omated message] The system [employer] generated this result transmitted ref erence range: [...] See_Comment [Aut omated message] 670) The system [employer] generated this result transmitted ref erence range: 1.56 - 6 .13 K/L. The refe rence range was not u sed to interpret this result as normal/abnor mal. # Lymphs (test code = 0.73 See_Comment L [Auto mated message] 414) The system [employer] generated this result transmitted ref erence range: 1.18 - 3 .74 K/L. The refe rence range was not u sed to interpret this result as normal/abnor mal. # Monos (test code = 0.62 See_Comment H [Autom ated message] 415) The system [employer] generated this result transmitted ref erence range: 0.24 - 0 .36 K/L. The refe rence range was not u sed to interpret this result as normal/abnor mal. # Eos (test code = 416) 0.24 See_Comment [Au tomated message] The system [employer] generated this result transmitted ref erence range: 0.04 - 0 .36 K/L. The refe rence range was not u sed to interpret this result as normal/abnor mal. # Baso (test code = 417) 0.04 See_Comment [A utomated message] The system [employer] generated this result transmitted ref erence range: 0.01 - 0 .08 K/L. The refe rence range was not u sed to interpret this result as normal/abnor mal. Immature 0 % 0-1 Granulocytes-Relative (test code = 2801) Lab Interpretation (test Abnormal code = 43111-0) [facility] with platelet count + automated [id number] 15:34:06 Test Item Value Reference Range Interpretation Comments WBC (test code = 6690-2) 4.6 See_Comment [A utomated message] The system [employer] generated this result transmitted ref erence range: 3.5 - 10 .5 K/L. The refe rence range was not u sed to interpret this result as normal/abnor mal. RBC (test code = 789-8) 2.86 See_Comment L [Au tomated message] The system [employer] generated this result transmitted ref erence range: 3.93 - 5 .22 M/L. The refe rence range was not u sed to interpret this result as normal/abnor mal. MCHC (test code = 786-4) 32.1 See_Comment L [A utomated message] The system [employer] generated this result transmitted ref erence range: [...] L [Aut omated message] 777-3) The system [employer] generated this result transmitted ref erence range: 150 - 45 0 K/CU MM. The referen ce range was not u sed to interpret this result as normal/abnor mal. MPV (test code = 11.0 fL 9.4-12.3 31281-3) nRBC (test code = 413) 0 See_Comment [Aut omated message] The system [employer] generated this result transmitted ref erence range: [...] See_Comment [Aut omated message] 670) The system [employer] generated this result transmitted ref erence range: 1.56 - 6 .13 K/L. The refe rence range was not u sed to interpret this result as normal/abnor mal. # Lymphs (test code = 0.73 See_Comment L [Auto mated message] 414) The system [employer] generated this result transmitted ref erence range: 1.18 - 3 .74 K/L. The refe rence range was not u sed to interpret this result as normal/abnor mal. # Monos (test code = 0.62 See_Comment H [Autom ated message] 415) The system [employer] generated this result transmitted ref erence range: 0.24 - 0 .36 K/L. The refe rence range was not u sed to interpret this result as normal/abnor mal. # Eos (test code = 416) 0.24 See_Comment [Au tomated message] The system [employer] generated this result transmitted ref erence range: 0.04 - 0 .36 K/L. The refe rence range was not u sed to interpret this result as normal/abnor mal. # Baso (test code = 417) 0.04 See_Comment [A utomated message] The system [employer] generated this result transmitted ref erence range: 0.01 - 0 .08 K/L. The refe rence range was not u sed to interpret this result as normal/abnor mal. Immature 0 % 0-1 Granulocytes-Relative (test code = 2801) Lab Interpretation (test Abnormal code = 34612-8) [facility] with platelet count + automated [id number] 15:34:06 Test Item Value Reference Range Interpretation Comments WBC (test code = 6690-2) 4.6 See_Comment [A utomated message] The system [employer] generated this result transmitted ref erence range: 3.5 - 10 .5 K/L. The refe rence range was not u sed to interpret this result as normal/abnor mal. RBC (test code = 789-8) 2.86 See_Comment L [Au tomated message] The system [employer] generated this result transmitted ref erence range: 3.93 - 5 .22 M/L. The refe rence range was not u sed to interpret this result as normal/abnor mal. MCHC (test code = 786-4) 32.1 See_Comment L [A utomated message] The system [employer] generated this result transmitted ref erence range: [...] L [Aut omated message] 777-3) The system [employer] generated this result transmitted ref erence range: 150 - 45 0 K/CU MM. The referen ce range was not u sed to interpret this result as normal/abnor mal. MPV (test code = 11.0 fL 9.4-12.3 45606-1) nRBC (test code = 413) 0 See_Comment [Aut omated message] The system [employer] generated this result transmitted ref erence range: [...] See_Comment [Aut omated message] 670) The system [employer] generated this result transmitted ref erence range: 1.56 - 6 .13 K/L. The refe rence range was not u sed to interpret this result as normal/abnor mal. # Lymphs (test code = 0.73 See_Comment L [Auto mated message] 414) The system [employer] generated this result transmitted ref erence range: 1.18 - 3 .74 K/L. The refe rence range was not u sed to interpret this result as normal/abnor mal. # Monos (test code = 0.62 See_Comment H [Autom ated message] 415) The system [employer] generated this result transmitted ref erence range: 0.24 - 0 .36 K/L. The refe rence range was not u sed to interpret this result as normal/abnor mal. # Eos (test code = 416) 0.24 See_Comment [Au tomated message] The system [employer] generated this result transmitted ref erence range: 0.04 - 0 .36 K/L. The refe rence range was not u sed to interpret this result as normal/abnor mal. # Baso (test code = 417) 0.04 See_Comment [A utomated message] The system [employer] generated this result transmitted ref erence range: 0.01 - 0 .08 K/L. The refe rence range was not u sed to interpret this result as normal/abnor mal. Immature 0 % 0-1 Granulocytes-Relative (test code = 2801) Lab Interpretation (test Abnormal code = 33789-8) [facility] with platelet count + automated [id number] 15:34:06 Test Item Value Reference Range Interpretation Comments WBC (test code = 6690-2) 4.6 See_Comment [A utomated message] The system [employer] generated this result transmitted ref erence range: 3.5 - 10 .5 K/L. The refe rence range was not u sed to interpret this result as normal/abnor mal. RBC (test code = 789-8) 2.86 See_Comment L [Au tomated message] The system [employer] generated this result transmitted ref erence range: 3.93 - 5 .22 M/L. The refe rence range was not u sed to interpret this result as normal/abnor mal. MCHC (test code = 786-4) 32.1 See_Comment L [A utomated message] The system [employer] generated this result transmitted ref erence range: [...] L [Aut omated message] 777-3) The system [employer] generated this result transmitted ref erence range: 150 - 45 0 K/CU MM. The referen ce range was not u sed to interpret this result as normal/abnor mal. MPV (test code = 11.0 fL 9.4-12.3 73259-9) nRBC (test code = 413) 0 See_Comment [Aut omated message] The system [employer] generated this result transmitted ref erence range: [...] See_Comment [Aut omated message] 670) The system [employer] generated this result transmitted ref erence range: 1.56 - 6 .13 K/L. The refe rence range was not u sed to interpret this result as normal/abnor mal. # Lymphs (test code = 0.73 See_Comment L [Auto mated message] 414) The system [employer] generated this result transmitted ref erence range: 1.18 - 3 .74 K/L. The refe rence range was not u sed to interpret this result as normal/abnor mal. # Monos (test code = 0.62 See_Comment H [Autom ated message] 415) The system [employer] generated this result transmitted ref erence range: 0.24 - 0 .36 K/L. The refe rence range was not u sed to interpret this result as normal/abnor mal. # Eos (test code = 416) 0.24 See_Comment [Au tomated message] The system [employer] generated this result transmitted ref erence range: 0.04 - 0 .36 K/L. The refe rence range was not u sed to interpret this result as normal/abnor mal. # Baso (test code = 417) 0.04 See_Comment [A utomated message] The system [employer] generated this result transmitted ref erence range: 0.01 - 0 .08 K/L. The refe rence range was not u sed to interpret this result as normal/abnor mal. Immature 0 % 0-1 Granulocytes-Relative (test code = 2801) Lab Interpretation (test Abnormal code = 79549-5) [facility] with platelet count + automated [id number] 15:34:06 Test Item Value Reference Range Interpretation Comments WBC (test code = 6690-2) 4.6 See_Comment [A utomated message] The system [employer] generated this result transmitted ref erence range: 3.5 - 10 .5 K/L. The refe rence range was not u sed to interpret this result as normal/abnor mal. RBC (test code = 789-8) 2.86 See_Comment L [Au tomated message] The system [employer] generated this result transmitted ref erence range: 3.93 - 5 .22 M/L. The refe rence range was not u sed to interpret this result as normal/abnor mal. MCHC (test code = 786-4) 32.1 See_Comment L [A utomated message] The system [employer] generated this result transmitted ref erence range: [...] L [Aut omated message] 777-3) The system [employer] generated this result transmitted ref erence range: 150 - 45 0 K/CU MM. The referen ce range was not u sed to interpret this result as normal/abnor mal. MPV (test code = 11.0 fL 9.4-12.3 99351-5) nRBC (test code = 413) 0 See_Comment [Aut omated message] The system [employer] generated this result transmitted ref erence range: [...] See_Comment [Aut omated message] 670) The system [employer] generated this result transmitted ref erence range: 1.56 - 6 .13 K/L. The refe rence range was not u sed to interpret this result as normal/abnor mal. # Lymphs (test code = 0.73 See_Comment L [Auto mated message] 414) The system [employer] generated this result transmitted ref erence range: 1.18 - 3 .74 K/L. The refe rence range was not u sed to interpret this result as normal/abnor mal. # Monos (test code = 0.62 See_Comment H [Autom ated message] 415) The system [employer] generated this result transmitted ref erence range: 0.24 - 0 .36 K/L. The refe rence range was not u sed to interpret this result as normal/abnor mal. # Eos (test code = 416) 0.24 See_Comment [Au tomated message] The system [employer] generated this result transmitted ref erence range: 0.04 - 0 .36 K/L. The refe rence range was not u sed to interpret this result as normal/abnor mal. # Baso (test code = 417) 0.04 See_Comment [A utomated message] The system [employer] generated this result transmitted ref erence range: 0.01 - 0 .08 K/L. The refe rence range was not u sed to interpret this result as normal/abnor mal. Immature 0 % 0-1 Granulocytes-Relative (test code = 2801) Lab Interpretation (test Abnormal code = 58295-0) [facility] with platelet count + automated [id number] 15:34:06 Test Item Value Reference Range Interpretation Comments WBC (test code = 6690-2) 4.6 See_Comment [A utomated message] The system [employer] generated this result transmitted ref erence range: 3.5 - 10 .5 K/L. The refe rence range was not u sed to interpret this result as normal/abnor mal. RBC (test code = 789-8) 2.86 See_Comment L [Au tomated message] The system [employer] generated this result transmitted ref erence range: 3.93 - 5 .22 M/L. The refe rence range was not u sed to interpret this result as normal/abnor mal. MCHC (test code = 786-4) 32.1 See_Comment L [A utomated message] The system [employer] generated this result transmitted ref erence range: [...] L [Aut omated message] 777-3) The system [employer] generated this result transmitted ref erence range: 150 - 45 0 K/CU MM. The referen ce range was not u sed to interpret this result as normal/abnor mal. MPV (test code = 11.0 fL 9.4-12.3 49563-1) nRBC (test code = 413) 0 See_Comment [Aut omated message] The system [employer] generated this result transmitted ref erence range: [...] See_Comment [Aut omated message] 670) The system [employer] generated this result transmitted ref erence range: 1.56 - 6 .13 K/L. The refe rence range was not u sed to interpret this result as normal/abnor mal. # Lymphs (test code = 0.73 See_Comment L [Auto mated message] 414) The system [employer] generated this result transmitted ref erence range: 1.18 - 3 .74 K/L. The refe rence range was not u sed to interpret this result as normal/abnor mal. # Monos (test code = 0.62 See_Comment H [Autom ated message] 415) The system [employer] generated this result transmitted ref erence range: 0.24 - 0 .36 K/L. The refe rence range was not u sed to interpret this result as normal/abnor mal. # Eos (test code = 416) 0.24 See_Comment [Au tomated message] The system [employer] generated this result transmitted ref erence range: 0.04 - 0 .36 K/L. The refe rence range was not u sed to interpret this result as normal/abnor mal. # Baso (test code = 417) 0.04 See_Comment [A utomated message] The system [employer] generated this result transmitted ref erence range: 0.01 - 0 .08 K/L. The refe rence range was not u sed to interpret this result as normal/abnor mal. Immature 0 % 0-1 Granulocytes-Relative (test code = 2801) Lab Interpretation (test Abnormal code = 80684-8) [facility] with platelet count + automated [id number] 15:34:06 Test Item Value Reference Range Interpretation Comments WBC (test code = 6690-2) 4.6 See_Comment [A utomated message] The system [employer] generated this result transmitted ref erence range: 3.5 - 10 .5 K/L. The refe rence range was not u sed to interpret this result as normal/abnor mal. RBC (test code = 789-8) 2.86 See_Comment L [Au tomated message] The system [employer] generated this result transmitted ref erence range: 3.93 - 5 .22 M/L. The refe rence range was not u sed to interpret this result as normal/abnor mal. MCHC (test code = 786-4) 32.1 See_Comment L [A utomated message] The system [employer] generated this result transmitted ref erence range: [...] L [Aut omated message] 777-3) The system [employer] generated this result transmitted ref erence range: 150 - 45 0 K/CU MM. The referen ce range was not u sed to interpret this result as normal/abnor mal. MPV (test code = 11.0 fL 9.4-12.3 32642-1) nRBC (test code = 413) 0 See_Comment [Aut omated message] The system [employer] generated this result transmitted ref erence range: [...] See_Comment [Aut omated message] 670) The system [employer] generated this result transmitted ref erence range: 1.56 - 6 .13 K/L. The refe rence range was not u sed to interpret this result as normal/abnor mal. # Lymphs (test code = 0.73 See_Comment L [Auto mated message] 414) The system [employer] generated this result transmitted ref erence range: 1.18 - 3 .74 K/L. The refe rence range was not u sed to interpret this result as normal/abnor mal. # Monos (test code = 0.62 See_Comment H [Autom ated message] 415) The system [employer] generated this result transmitted ref erence range: 0.24 - 0 .36 K/L. The refe rence range was not u sed to interpret this result as normal/abnor mal. # Eos (test code = 416) 0.24 See_Comment [Au tomated message] The system [employer] generated this result transmitted ref erence range: 0.04 - 0 .36 K/L. The refe rence range was not u sed to interpret this result as normal/abnor mal. # Baso (test code = 417) 0.04 See_Comment [A utomated message] The system [employer] generated this result transmitted ref erence range: 0.01 - 0 .08 K/L. The refe rence range was not u sed to interpret this result as normal/abnor mal. Immature 0 % 0-1 Granulocytes-Relative (test code = 2801) Lab Interpretation (test Abnormal code = 38432-4) [facility] W/PLT COUNT & AUTO [id number] 15:34:06 Test Item Value Reference Range Interpretation [...] PERCENT (BEAKER) (test code = 2801) POCT-GLUCOSE [id number] 12:42:57 Test Item Value Reference Range Interpretation Comments POC-GLUCOSE METER 216 mg/dL 70-110 H : TESTED A T [facility] 6720 (BEAKER) (test code = YUDY WHITE AL, 1538) 26824: [employer] Machine Operator/Techni kelle ID = [id number] for Kayla [facility]uk[facility] [id number] 10:49:00 Test Item Value Reference Range Interpretation Comments CROSSMATCH (test code = 2264) COMPATIBLE Unit ABO (test code = O Pos [id number]) UNIT NUMBER (test code = [id number] 934-0) Status (test code = 9143703) ISSUED Blood Bank Product (test code RED BLOOD CELLS = 2263) PRODUCT CODE (test code = [id number] 933-2) [facility] [id number] 10:49:00 Test Item Value Reference Range Interpretation Comments CROSSMATCH (test code = 2264) COMPATIBLE Unit ABO (test code = O Pos 4622608) UNIT NUMBER (test code = [id number] 934-0) Status (test code = 0760183) ISSUED Blood Bank Product (test code RED BLOOD CELLS = 2263) PRODUCT CODE (test code = [id number] 933-2) [facility] [id number] 10:49:00 Test Item Value Reference Range Interpretation Comments CROSSMATCH (test code = 2264) COMPATIBLE Unit ABO (test code = O Pos 6558624) UNIT NUMBER (test code = [id number] 934-0) Status (test code = 6957077) ISSUED Blood Bank Product (test code RED BLOOD CELLS = 2263) PRODUCT CODE (test code = [id number] 933-2) [facility] [id number] 08:43:51 Test Item Value Reference Range Interpretation Comments POC-GLUCOSE METER 209 mg/dL 70-110 H : TESTED A T [facility] 6720 (BEAKER) (test code = YUDY [place], 1538) 99482: Paper Products Machine Operator/Techni kelle ID = [id number] for Kayla Emanuel RAD, CHEST, 1 VIEW, NON [id number] 07:26:00Reason for exam:->post-opShould this be performed at the bedside?->Yes [facility] 1955 Sex: FFINAL [...] Cosme Verified Date/Time: 06/28/2021 07:26:22 BASIC METABOLIC [id number] 04:56:45 Test Item Value Reference Range Interpretation [...] S NOT APPLICABLE FOR DIALYSIS PATIEN TS. Paper Products Machine Operator ID - LIANA [id number] 04:48:49 Test Item Value Reference Range Interpretation Comments MAGNESIUM (BEAKER) 2.0 mg/dL 1.6-2.6 Specimen slightly (test code = 627) hemolyzed Paper Products Machine Operator ID - LIANA [id number] 04:48:49 Test Item Value Reference Range Interpretation Comments PHOSPHORUS (BEAKER) 2.5 mg/dL 2.3-4.7 Specimen slightly (test code = 604) hemolyzed Paper Products Machine Operator ID - LIANA LCBC (HEMOGRAM ONLY)2021-06-28 [...] WBC 0-0 (test code = 413) POCT-GLUCOSE [id number] 21:38:17 Test Item Value Reference Range Interpretation Comments POC-GLUCOSE METER 200 mg/dL 70-110 H : TESTED A T [facility] 6720 (BEAKER) (test code = [facility], 1538) 40074: Paper Products Machine Operator/Techni kelle ID = [id number] for RO JOSIE DANIELSO POCT-GLUCOSE [id number] 18:02:45 Test Item Value Reference Range Interpretation Comments POC-GLUCOSE METER 217 mg/dL 70-110 H : TESTED A T [facility] 6720 (BEAKER) (test code = [facility], 1538) 29452: Paper Products Machine Operator/Techni kelle ID = [id number] for Ba rrera, Kayla POCT-GLUCOSE [id number] 15:14:18 Test Item Value Reference Range Interpretation Comments POC-GLUCOSE METER 229 mg/dL 70-110 H : TESTED A T [facility] 6720 (BEAKER) (test code = [facility], 1538) 56328: Paper Products Machine Operator/Techni kelle ID = [id number] for Ba rrera, Kayla POCT-GLUCOSE [id number] 12:20:23 Test Item Value Reference Range Interpretation Comments POC-GLUCOSE METER 160 mg/dL 70-110 H : TESTED A T [facility] 6720 (BEAKER) (test code = [facility], 1538) 27503: Paper Products Machine Operator/Techni kelle ID = [id number] for Ba rrera, Kayla SARS-CoV2/RT-PCR (Asymptomatic ONLY)2021-06-27 10:39:35 Test Item Value Reference Range Interpretation Comments SARS-COV2/RT-PCR Negative Not Detected, (test code = Negative, See 05455-9) external report for linked test SARS-COV-2 [facility] PERFORMING LAB (test code = 17210-2) BRANDI (test code = Negative result for [...] of the Act. Fact Sheet for Healthcare Providers:https://www.[employer] idel.Academize/sites/default/f radha/product/documents/F act_Sheet_HC_Providers_L wxb_MAJM-TkW-6.pdf Fact Sheet for Healthcare Patients:https://www.Wattage del.Academize/sites/default/fi les/product/documents/Fa ct_Sheet_Patients_Lyra_S ARS-CoV-2.pdf Performing Laboratory:[facility] [place] [address] [facility]As[facility]omatic ONLY)2021-06-27 10:39:35 Test Item Value Reference Range Interpretation Comments SARS-COV2/RT-PCR Negative Not Detected, (test code = Negative, See 15128-0) external report for linked test SARS-COV-2 [facility] PERFORMING LAB (test code = 91834-0) BRANDI (test code = Negative result for [...] of the Act. Fact Sheet for Healthcare Providers:https://www.[employer] idel.Academize/sites/default/f radha/product/documents/F act_Sheet_HC_Providers_L hjx_OTQU-DzT-4.pdf Fact Sheet for Healthcare Patients:https://www.Picwing.Academize/sites/default/fi les/product/documents/Fa ct_Sheet_Patients_Lyra_S ARS-CoV-2.pdf Performing Laboratory:[place] [address] [place] [address] [facility] (Asymptomatic ONLY)2021-06-27 10:39:35 Test Item Value Reference Range Interpretation Comments SARS-COV2/RT-PCR Negative Not Detected, (test code = Negative, See 32730-4) external report for linked test SARS-COV-2 [facility] PERFORMING LAB (test code = 12009-0) BRANDI (test code = Negative result for [...] of the Act. Fact Sheet for Healthcare Providers:https://www.Champion Windows ideBigbasket.com.Academize/sites/default/f radha/product/documents/F act_Sheet_HC_Providers_L xxe_ENOM-XlM-7.pdf Fact Sheet for Healthcare Patients:https://www.Wattage del.com/sites/default/fi les/product/documents/Fa ct_Sheet_Patients_Lyra_S ARS-CoV-2.pdf Performing Laboratory:[facility] [place] [address] [facility] (Asymptomatic ONLY)2021-06-27 10:39:35 Test Item Value Reference Range Interpretation Comments SARS-COV2/RT-PCR Negative Not Detected, (test code = Negative, See 71075-9) external report for linked test SARS-COV-2 [facility] PERFORMING LAB (test code = 36649-3) BRANDI (test code = Negative result for [...] of the Act. Fact Sheet for Healthcare Providers:https://www.[employer].com/sites/default/f radha/product/documents/F act_Sheet_HC_Providers_L vlj_NGND-PiO-5.pdf Fact Sheet for Healthcare Patients:https://www.Picwing.com/sites/default/fi les/product/documents/Fa ct_Sheet_Patients_Alicia_S ARS-CoV-2.pdf Performing Laboratory:[facility] [place] [address] [facility] (Asymptomatic ONLY)2021-06-27 10:39:35 Test Item Value Reference Range Interpretation Comments SARS-COV2/RT-PCR Negative Not Detected, (test code = Negative, See 95820-5) external report for linked test SARS-COV-2 [facility] PERFORMING LAB (test code = 93677-3) BRANDI (test code = Negative result for [...] of the Act. Fact Sheet for Healthcare Providers:https://www.[employer].Academize/sites/default/f radha/product/documents/F act_Sheet_HC_Providers_L kob_GKSE-SeB-9.pdf Fact Sheet for Healthcare Patients:https://www.[employer]/sites/default/fi les/product/documents/Fa ct_Sheet_Patients_Lyra_S ARS-CoV-2.pdf Performing Laboratory:[facility] [place] [address] [facility] (Asymptomatic ONLY)2021-06-27 10:39:35 Test Item Value Reference Range Interpretation Comments SARS-COV2/RT-PCR Negative Not Detected, (test code = Negative, See 74131-2) external report for linked test SARS-COV-2 [facility] PERFORMING LAB (test code = 97791-9) BRANDI (test code = Negative result for [...] of the Act. Fact Sheet for Healthcare Providers:https://www.appMobi/sites/default/f radha/product/documents/F act_Sheet_HC_Providers_L idr_XFTX-TiC-9.pdf Fact Sheet for Healthcare Patients:https://www.[employer]/sites/default/fi les/product/documents/Fa ct_Sheet_Patients_Lyra_S ARS-CoV-2.pdf Performing Laboratory:[facility]/RT-PCR (Asymptomatic ONLY)2021-06-27 10:39:35 Test Item Value Reference Range Interpretation Comments SARS-COV2/RT-PCR Negative Not Detected, (test code = Negative, See 64859-6) external report for linked test SARS-COV-2 [facility] PERFORMING LAB (test code = 98959-4) BRANDI (test code = Negative result for [...] of the Act. Fact Sheet for Healthcare Providers:https://www.appMobi/sites/default/f radha/product/documents/F act_Sheet_HC_Providers_L dgf_MHEJ-TgP-0.pdf Fact Sheet for Healthcare Patients:https://www.[employer]/sites/default/fi les/product/documents/Fa ct_Sheet_Patients_Lyra_S ARS-CoV-2.pdf Performing Laboratory:[facility] [facility] [place] [address] [facility]ARS-[facility]OV[facility]-PCR ([facility])2021-06-27 10:39:35 Test Item Value Reference Range Interpretation Comments SARS-COV2/RT-PCR (test Negative Not Detected, Negative, code = 0497545) See external report for linked test SARS-COV-[address] [facility] ALICIA (test code = 5751654) Negative result for this test determines that [...] of the Act.Fact Sheet for Healthcare Prov iders:https://www.TrustHop/sites/default/files/product/documents/Fact_Sheet_HC _Wongffgtq_Tizn_UQNS-AmK-3.pdfFact Sheet for Healthcare Patients:https://www.TrustHop/sites/default/files/product/docume nts/Pddu_Zyldl_Xuemjdqg_Ohfs_DREX-MfF-5.pdfPerforming Laboratory:[facility], [place] [address]VOUY-YMQTUBF METER 2021-06-27 08:35:14 Test Item Value Reference Range Interpretation Comments POC-GLUCOSE METER 99 mg/dL 70-110 : TESTED A T [facility] 6720 (AKASH) (test code = YUDY [place] [facility], 1538) 28887: Paper Products Machine Operator/Techni kelle ID = [id number] for Kayla Arenas RAD, CHEST, 1 VIEW, NON [id number] 08:17:00Reason for exam:->post-opShould this be performed at the bedside?->Yes [facility] MONTOYA : 1955 Sex: FFINAL REPORT Chest, one view HISTORY: Postoperative Comparison: 06/26/2021 Findings: Lungs: Mild bilateral interstitial opacities, likely pulmonary venous congestion. No significant change. Heart: Unchanged moderate cardiomegaly. Pleura: No pleural effusion or pneumothorax. Bones: Unremarkable. Lines/tubes: Unchanged in position. Signed: Erlin Carr MDReport Verified Date/Time: 06/27/2021 08:17:45 Reading Location: [address] Consult Reading Room BASIC METABOLIC [id number] 05:32:33 Test Item Value Reference Range Interpretation [...] S NOT APPLICABLE FOR DIALYSIS PATIEN TS. Paper Products Machine Operator ID - HIEN [id number] 05:23:42 Test Item Value Reference Range Interpretation Comments PHOSPHORUS (BEAKER) (test code = 2.2 mg/dL 2.3-4.7 L 604) Paper Products Machine Operator ID - HIEN [id number] 05:23:41 Test Item Value Reference Range Interpretation Comments MAGNESIUM (BEAKER) (test code = 1.8 mg/dL 1.6-2.6 627) Paper Products Machine Operator ID - HIEN [id number] 05:19:04 Test Item Value Reference Range Interpretation Comments PTT (test code = 97780-6) 35.8 See_Comment [ Automated message] The system Flipzu generated this result transmitted ref erence range: 22.5 - 3 6.0 seconds. The re ference range was not u sed to interpret this result as normal/abnor mal. Lab Interpretation (test Normal code = 16498-4) [place] [id number] 05:19:04 Test Item Value Reference Range Interpretation Comments PTT (test code = 85688-9) 35.8 See_Comment [ Automated message] The system Flipzu generated this result transmitted ref erence range: 22.5 - 3 6.0 seconds. The re ference range was not u sed to interpret this result as normal/abnor mal. Lab Interpretation (test Normal code = 84595-2) [facility] Test Item Value Reference Range Interpretation Comments PTT (test code = 32073-9) 35.8 See_Comment [ Automated message] The system Flipzu generated this result transmitted ref erence range: 22.5 - 3 6.0 seconds. The re ference range was not u sed to interpret this result as normal/abnor mal. Lab Interpretation (test Normal code = 26891-8) [facility] 05:[facility]04 Test Item Value Reference Range Interpretation Comments PTT (test code = 40557-1) 35.8 See_Comment [ Automated message] The system Flipzu generated this result transmitted ref erence range: 22.5 - 3 6.0 seconds. The re ference range was not u sed to interpret this result as normal/abnor mal. Lab Interpretation (test Normal code = 41233-2) [place] 58956022-03-26 05:19:04 Test Item Value Reference Range Interpretation Comments PTT (test code = 08195-1) 35.8 See_Comment [ Automated message] The system Flipzu generated this result transmitted ref erence range: 22.5 - 3 6.0 seconds. The re ference range was not u sed to interpret this result as normal/abnor mal. Lab Interpretation (test Normal code = 76529-9) [place] 58956022-03-26 05:19:04 Test Item Value Reference Range Interpretation Comments PTT (test code = 41205-4) 35.8 See_Comment [ Automated message] The system Flipzu generated this result transmitted ref erence range: 22.5 - 3 6.0 seconds. The re ference range was not u sed to interpret this result as normal/abnor mal. Lab Interpretation (test Normal code = 04955-0) [place] 58956022-03-26 05:19:04 Test Item Value Reference Range Interpretation Comments PTT (test code = 03917-0) 35.8 See_Comment [ Automated message] The system Flipzu generated this result transmitted ref erence range: 22.5 - 3 6.0 seconds. The re ference range was not u sed to interpret this result as normal/abnor mal. Lab Interpretation (test Normal code = 72941-4) [place] 58956022-03-26 05:19:04 Test Item Value Reference Range Interpretation Comments PTT (test code = 27599-7) 35.8 See_Comment [ Automated message] The system Flipzu generated this result transmitted ref erence range: 22.5 - 3 6.0 seconds. The re ference range was not u sed to interpret this result as normal/abnor mal. Lab Interpretation (test Normal code = 07886-6) [place] 58956022-03-26 05:19:04 Test Item Value Reference Range Interpretation Comments PTT (test code = 51095-3) 35.8 See_Comment [ Automated message] The system Flipzu generated this result transmitted ref erence range: 22.5 - 3 6.0 seconds. The re ference range was not u sed to interpret this result as normal/abnor mal. Lab Interpretation (test Normal code = 34799-0) [place] 58956022-03-26 05:19:04 Test Item Value Reference Range Interpretation Comments PTT (test code = 05920-4) 35.8 See_Comment [ Automated message] The system Flipzu generated this result transmitted ref erence range: 22.5 - 3 6.0 seconds. The re ference range was not u sed to interpret this result as normal/abnor mal. Lab Interpretation (test Normal code = 93372-1) [place] 58956022-03-26 05:19:04 Test Item Value Reference Range Interpretation Comments PTT (test code = 05719-9) 35.8 See_Comment [ Automated message] The system Flipzu generated this result transmitted ref erence range: 22.5 - 3 6.0 seconds. The re ference range was not u sed to interpret this result as normal/abnor mal. Lab Interpretation (test Normal code = 65389-6) [place] 58956022-03-26 05:19:04 Test Item Value Reference Range Interpretation Comments PTT (test code = 48110-5) 35.8 See_Comment [ Automated message] The system Flipzu generated this result transmitted ref erence range: 22.5 - 3 6.0 seconds. The re ference range was not u sed to interpret this result as normal/abnor mal. Lab Interpretation (test Normal code = 20985-3) [place] 58956022-03-26 05:19:04 Test Item Value Reference Range Interpretation Comments PTT (test code = 15171-9) 35.8 See_Comment [ Automated message] The system Flipzu generated this result transmitted ref erence range: 22.5 - 3 6.0 seconds. The re ference range was not u sed to interpret this result as normal/abnor mal. Lab Interpretation (test Normal code = 25393-9) [place] 58956022-03-26 05:19:04 Test Item Value Reference Range Interpretation Comments PTT (test code = 98057-8) 35.8 See_Comment [ Automated message] The system Flipzu generated this result transmitted ref erence range: 22.5 - 3 6.0 seconds. The re ference range was not u sed to interpret this result as normal/abnor mal. Lab Interpretation (test Normal code = 90265-7) [place] 92992022-03-26 05:19:04 Test Item Value Reference Range Interpretation Comments PARTIAL THROMBOPLASTIN TIME 35.8 seconds 22.5-36.0 (BEAKER) (test code = 760) Prothrombin time/[id number] 05:18:23 Test Item Value Reference Interpretation Comments [...] valves. Lab Interpretation Normal (test code = 53378-6) [facility][id number] 05:18:23 Test Item Value Reference Interpretation Comments [...] valves. Lab Interpretation Normal (test code = 95638-1) [facility]/[id number] 05:18:23 Test Item Value Reference Interpretation Comments [...] valves. Lab Interpretation Normal (test code = 43518-5) [facility]/[id number] 05:18:23 Test Item Value Reference Interpretation Comments [...] valves. Lab Interpretation Normal (test code = 21135-9) [facility]/[id number] 05:18:23 Test Item Value Reference Interpretation Comments [...] valves. Lab Interpretation Normal (test code = 67988-6) [facility]/[id number] 05:18:23 Test Item Value Reference Interpretation Comments Range Protime (test code = 13.9 See_Comment [Autom ated 5902-2) message] The system which generated this result transmitted reference range : 11.9 - 14.2 seconds. The reference range was not used to interpret this result as normal/abnormal . INR (test code = 1.09 See_Comment [Automated PerfectPost1-6) message] The system which generated this result [...] valves. Lab Interpretation Normal (test code = 28841-7) [facility]/[id number] 05:18:23 Test Item Value Reference Interpretation Comments [...] valves. Lab Interpretation Normal (test code = 86807-2) [facility]/[id number] 05:18:23 Test Item Value Reference Interpretation Comments [...] valves. Lab Interpretation Normal (test code = 12956-2) [facility]/[id number] 05:18:23 Test Item Value Reference Interpretation Comments [...] valves. Lab Interpretation Normal (test code = 66354-8) [facility]/[id number] 05:18:23 Test Item Value Reference Interpretation Comments Range Protime (test code = 13.9 See_Comment [Autom ated 5902-2) message] The system which generated this result transmitted reference range : 11.9 - 14.2 seconds. The reference range was not used to interpret this result as normal/abnormal . INR (test code = 1.09 See_Comment [Automated PerfectPost1-6) message] The system which generated this result [...] valves. Lab Interpretation Normal (test code = 75152-1) [facility]/[id number] 05:18:23 Test Item Value Reference Interpretation Comments Range Protime (test code = 13.9 See_Comment [Autom ated 5902-2) message] The system which generated this result transmitted reference range : 11.9 - 14.2 seconds. The reference range was not used to interpret this result as normal/abnormal . INR (test code = 1.09 See_Comment [Automated PerfectPost1-6) message] The system which generated this result [...] valves. Lab Interpretation Normal (test code = 27435-2) [facility]/[id number] 05:18:23 Test Item Value Reference Interpretation Comments [...] valves. Lab Interpretation Normal (test code = 61258-1) [facility]/[id number] 05:18:23 Test Item Value Reference Interpretation Comments Range Protime (test code = 13.9 See_Comment [Autom ated 5902-2) message] The system which generated this result transmitted reference range : 11.9 - 14.2 seconds. The reference range was not used to interpret this result as normal/abnormal . INR (test code = 1.09 See_Comment [Automated PerfectPost1-6) message] The system which generated this result [...] valves. Lab Interpretation Normal (test code = 50600-9) [facility]/[id number] 05:18:23 Test Item Value Reference Interpretation Comments [...] valves. Lab Interpretation Normal (test code = 33371-1) [facility]/[id number] 05:18:23 Test Item Value Reference Range Interpretation Comments PROTIME (BEAKER) 13.9 seconds 11.9-14.2 (test code = 759) INR (BEAKER) (test 1.09 See_Comment [Automat ed message] code = 370) The system Flipzu generated this result transmitted ref erence range: [...] WBC 0-0 (test code = 413) POCT-GLUCOSE [id number] 21:11:10 Test Item Value Reference Range Interpretation Comments POC-GLUCOSE METER 158 mg/dL 70-110 H : TESTED A T [facility] 6720 (BEAKER) (test code = YUDY [place] [facility], 1538) 26660: Paper Products Machine Operator/Techni kelle ID = [id number] for Re yes, Sairy POCT-GLUCOSE [id number] 19:06:56 Test Item Value Reference Range Interpretation Comments POC-GLUCOSE METER 113 mg/dL 70-110 H : TESTED A T [facility] 6720 (BEAKER) (test code GISELLA [facility], = 1538) 03657: Paper Products Machine Operator/Techni kelle ID = [id number] for Sutt on, Fadi Hemoglobin and [id number] 11:43:32 Test Item Value Reference Range Interpretation [...] = 4544-3) BRANDI (test code = BRANDI) Paper Products Machine Operator ID - [id number] Lab Interpretation Abnormal (test code = 30511-0) [facility] innatejwhl4240-95-79 11:43:32 Test Item Value Reference Range Interpretation [...] = 4544-3) BRANDI (test code = BRANDI) Paper Products Machine Operator ID - [id number] Lab Interpretation Abnormal (test code = 41187-2) [facility] zrrkeuhrjh6844-70-38 11:43:32 Test Item Value Reference Range Interpretation [...] = 4544-3) BRANDI (test code = BRANDI) Paper Products Machine Operator ID - [id number] Lab Interpretation Abnormal (test code = 10588-0) [facility] and eovxtccgxg2432-64-29 11:43:32 Test Item Value Reference Range Interpretation [...] = 4544-3) BRANDI (test code = BRANDI) Paper Products Machine Operator ID - [id number] Lab Interpretation Abnormal (test code = 16361-9) [facility] kxmosvrgyi7147-45-99 11:43:32 Test Item Value Reference Range Interpretation [...] = 4544-3) BRANDI (test code = BRANDI) Paper Products Machine Operator ID - [id number] Lab Interpretation Abnormal (test code = 00344-8) [facility] eaqrjknfor7385-12-72 11:43:32 Test Item Value Reference Range Interpretation [...] = 4544-3) BRANDI (test code = BRANDI) Paper Products Machine Operator ID - [id number] Lab Interpretation Abnormal (test code = 18429-7) [facility] and rzquiimoie6459-11-45 11:43:32 Test Item Value Reference Range Interpretation [...] = 4544-3) BRANDI (test code = BRANDI) Paper Products Machine Operator ID - [id number] Lab Interpretation Abnormal (test code = 12365-2) [facility] and rcgnqztdwo9058-07-09 11:43:32 Test Item Value Reference Range Interpretation [...] = 4544-3) BRANDI (test code = BRANDI) Paper Products Machine Operator ID - [id number] Lab Interpretation Abnormal (test code = 25333-3) [facility] and bhgzjnzilo9047-95-80 11:43:32 Test Item Value Reference Range Interpretation [...] = 4544-3) BRANDI (test code = BRANDI) Paper Products Machine Operator ID - [id number] Lab Interpretation Abnormal (test code = 34994-9) [facility] and eywsmjkhkr7264-42-54 11:43:32 Test Item Value Reference Range Interpretation [...] = 4544-3) BRANDI (test code = BRANDI) Paper Products Machine Operator ID - [id number] Lab Interpretation Abnormal (test code = 55538-4) [facility] and zhajbuwimo4581-98-85 11:43:32 Test Item Value Reference Range Interpretation [...] = 4544-3) BRANDI (test code = BRANDI) Paper Products Machine Operator ID - [id number] Lab Interpretation Abnormal (test code = 15846-9) [facility] and ppqthsiekh3709-35-55 11:43:32 Test Item Value Reference Range Interpretation [...] = 4544-3) BRANDI (test code = BRANDI) Paper Products Machine Operator ID - [id number] Lab Interpretation Abnormal (test code = 95401-0) [facility] and ucdztzcdxt5503-02-91 11:43:32 Test Item Value Reference Range Interpretation [...] = 4544-3) BRANDI (test code = BRANDI) Paper Products Machine Operator ID - [id number] Lab Interpretation Abnormal (test code = 36735-8) [facility] and vokolnblfu9698-38-76 11:43:32 Test Item Value Reference Range Interpretation [...] = 4544-3) BRANDI (test code = BRANDI) Paper Products Machine Operator ID - [id number] Lab Interpretation Abnormal (test code = 29347-1) [place] [facility] HospitalHemoglobin and [id number] 11:43:32 Test Item Value Reference Range Interpretation [...] = 4544-3) BRANDI (test code = BRANDI) Paper Products Machine Operator ID - [id number] Lab Interpretation Abnormal (test code = 72989-8) [place] [facility] HospitalHEMOGLOBIN AND [id number] 11:43:32 Test Item Value Reference Range Interpretation Comments HEMOGLOBIN (BEAKER) (test code = 8.5 GM/DL 11.2-15.7 L 410) HEMATOCRIT (BEAKER) (test code = 26.8 % 34.1-44.9 L 411) Paper Products Machine Operator ID - [id number]-Glucose fvehr2800-25-53 11:26:36 Test Item Value Reference Range Interpretation Comments POC-Glucose Meter (test 126 mg/dL 70-110 H : TE STED AT [facility] code = 1538) [address] [facility], 770 30: Paper Products Machine Operator/Techni kelle ID = [id number] for Ector (contract)Meeta Lab Interpretation (test Abnormal code = 05006-2) [place] [facility]PO[facility]SE [id number] 11:26:36 Test Item Value Reference Range Interpretation Comments POC-GLUCOSE METER 126 mg/dL 70-110 H : TESTED A T [facility] 6720 (BEAKER) (test code = [facility], 1538) [address]: Paper Products Machine Operator/Techni kelle ID = [id number] for Brando wayne (contract)Marilee POCT-GLUCOSE [id number] 09:38:49 Test Item Value Reference Range Interpretation Comments POC-GLUCOSE METER 139 mg/dL 70-110 H : TESTED A T [facility] 6720 (BEAKER) (test code = [facility], 1538) 15240: Paper Products Machine Operator/Techni kelle ID = [id number] for IB SWEETIE CARDENAS, TUNNELED CATHETER [id number] 08:44:00Reason for Central Line/PICC?->> 21 days of IV infusionReason for exam:->needs antibiotics > 10 days, ESRD, Nephrology does not approve PICC or midline. [facility] 1955 Sex: [...] Heredia Verified Date/Time: 06/26/2021 08:44:45 Reading Location: [place] [id number] Angio Body Reading Room RAD, CHEST, 1 VIEW, NON [id number] 08:08:00Reason for exam:->post-opShould this be performed at the bedside?->Yes [facility] 1955 Sex: FFINAL [...] sternotomy wires and a pacemaker. Signed: Fadia Cainort Verified Date/Time: 06/26/2021 08:08:37 Reading Location: [facility] Reading Room Prepare Leuko-Red [id number] 06:01:00 Test Item Value Reference Range Interpretation Comments CROSSMATCH (test code = 2264) COMPATIBLE Unit ABO (test code = O Pos 4786017) UNIT NUMBER (test code = [id number] 934-0) Status (test code = 4038494) ISSUED Blood Bank Product (test code RED BLOOD CELLS = 2263) PRODUCT CODE (test code = A8787H67 933-2) [place] [facility] HospitalPrepare Leuko-Red [id number] 06:01:00 Test Item Value Reference Range Interpretation Comments CROSSMATCH (test code = 2264) COMPATIBLE Unit ABO (test code = O Pos 4742283) UNIT NUMBER (test code = [id number] 934-0) Status (test code = 6431975) ISSUED Blood Bank Product (test code RED BLOOD CELLS = 2263) PRODUCT CODE (test code = G1473P13 933-2) [place] [facility] HospitalBasic Metabolic [id number] 05:17:06 Test Item Value Reference Range Interpretation Comments Sodium (test code = 139 meq/L 740-889 7390-2) Potassium (test code = 3.7 meq/L 3.5-5.1 2823-3) Chloride (test code = 104 meq/L 98-107 2075-0) CO2 (test code = 23 meq/L 22-29 2028-9) BUN (test code = 36 mg/dL 7-21 H 3094-0) Creatinine (test code 5.14 mg/dL 0.57-1.25 H = 2160-0) Glucose (test code = 170 mg/dL 70-105 H 2345-7) Calcium (test code = 8.2 mg/dL 8.4-10.2 L 78252-2) EGFR (test code = 8 mL/min/1.73 [place] [address]-8) NOT ACCURATE CREATININE CLEARANCE IN PREDICTING GLOMERULAR FILTRATION RATE . ESTIMATED GFR I S NOT APPLICABLE FOR DIALYSIS PATIENTS. BRANDI (test code = BRANDI) Paper Products Machine Operator NORAH Littlejohn Lab Interpretation Abnormal (test code = 34661-6) [facility] Metabolic [id number] 05:17:06 Test Item Value Reference Range Interpretation Comments Sodium (test code = 139 meq/L 160-153 6383-2) Potassium (test code = 3.7 meq/L 3.5-5.1 2823-3) Chloride (test code = 104 meq/L 98-107 2075-0) CO2 (test code = 23 meq/L 22-29 2028-9) BUN (test code = 36 mg/dL 7-21 H 3094-0) Creatinine (test code 5.14 mg/dL 0.57-1.25 H = 2160-0) Glucose (test code = 170 mg/dL 70-105 H 2345-7) Calcium (test code = 8.2 mg/dL 8.4-10.2 L 23733-4) EGFR (test code = 8 mL/min/1.[place] [address]-1) NOT ACCURATE CREATININE CLEARANCE IN PREDICTING GLOMERULAR FILTRATION RATE . ESTIMATED GFR I S NOT APPLICABLE FOR DIALYSIS PATIENTS. BRANDI (test code = BRANDI) Paper Products Machine Operator ID - RAKAN W Lab Interpretation Abnormal (test code = 10915-4) [facility] METABOLIC [id number] 05:17:06 Test Item Value Reference Range Interpretation [...] S NOT APPLICABLE FOR DIALYSIS PATIEN TS. Paper Products Machine Operator ID - RAKAN UAldjctdtvz5543-32-83 05:00:22 Test Item Value Reference Range Interpretation Comments Phosphorus (test code = 3.7 mg/dL 2.3-4.7 2777-1) BRANDI (test code = BRANDI) Paper Products Machine Operator ID - RAKAN W Lab Interpretation (test Normal code = 42600-6) [place] [facility] HospitalPhosphorus2022-03-25 05:00:22 Test Item Value Reference Range Interpretation Comments Phosphorus (test code = 3.7 mg/dL 2.3-4.7 2777-1) BRANDI (test code = BRANDI) Paper Products Machine Operator ID - RAKAN W Lab Interpretation (test Normal code = 18355-2) [place] [facility] HospitalPHOSPHORUS2022-03-25 05:00:22 Test Item Value Reference Range Interpretation Comments PHOSPHORUS (BEAKER) (test code = 3.7 mg/dL 2.3-4.7 604) Paper Products Machine Operator ID - RAKAN ZDmxtpmpue3307-02-97 05:00:21 Test Item Value Reference Range Interpretation Comments Magnesium (test code = 2.2 mg/dL 1.6-2.6 72007-6) BRANDI (test code = BRANDI) Paper Products Machine Operator ID - RAKAN W Lab Interpretation (test Normal code = 53641-0) [place] [facility] HospitalMagnesium2022-03-25 05:00:21 Test Item Value Reference Range Interpretation Comments Magnesium (test code = 2.2 mg/dL 1.6-2.6 99826-8) BRANDI (test code = BRANDI) Paper Products Machine Operator ID - RAKAN W Lab Interpretation (test Normal code = 42468-3) [place] [facility] HospitalMAGNESIUM2022-03-25 05:00:21 Test Item Value Reference Range Interpretation Comments MAGNESIUM (BEAKER) (test code = 2.2 mg/dL 1.6-2.6 627) Paper Products Machine Operator ID - RAKAN [id number] 04:21:04 Test Item Value Reference Range Interpretation Comments PTT (test code = 10861-6) 35.7 See_Comment [ Automated message] The system Flipzu generated this result transmitted ref erence range: 22.5 - 3 6.0 seconds. The re ference range was not u sed to interpret this result as normal/abnor mal. Lab Interpretation (test Normal code = 96212-8) [place] [facility] HospitalaPTT2022-03-25 04:21:04 Test Item Value Reference Range Interpretation Comments PTT (test code = 87018-6) 35.7 See_Comment [ Automated message] The system whic h generated this result transmitted ref erence range: 22.5 - 3 6.0 seconds. The re ference range was not u sed to interpret this result as normal/abnor mal. Lab Interpretation (test Normal code = 10119-4) [place] [facility] HospitalAPTT2022-03-25 04:21:04 Test Item Value Reference Range Interpretation Comments PARTIAL THROMBOPLASTIN TIME 35.7 seconds 22.5-36.0 (BEAKER) (test code = 760) Prothrombin time/[id number] 04:20:24 Test Item Value Reference Interpretation Comments [...] valves. Lab Interpretation Normal (test code = 44467-9) [place] [facility] HospitalProthrombin time/[id number] 04:20:24 Test Item Value Reference Interpretation Comments [...] valves. Lab Interpretation Normal (test code = 58222-2) [place] [facility] HospitalPROTHROMBIN TIME/[id number] 04:20:24 Test Item Value Reference Range Interpretation Comments PROTIME (BEAKER) 14.0 seconds 11.9-14.2 (test code = 759) INR (BEAKER) (test 1.10 See_Comment [Automat ed message] code = 370) The system Flipzu generated this result transmitted ref erence range: [...] 4.0 See_Comment [A utomated message] The system Flipzu generated this result transmitted ref erence range: 3.5 - 10 .5 K/L. The refe rence range was not u sed to interpret this result as normal/abnor mal. RBC (test code = 789-8) 2.54 See_Comment L [Au tomated message] The system Flipzu generated this result transmitted ref erence range: 3.93 - 5 .22 M/L. The refe rence range was not u sed to interpret this result as normal/abnor mal. MCHC (test code = 786-4) 31.2 See_Comment L [A utomated message] The system Flipzu generated this result transmitted ref erence range: [...] L [Aut omated message] 777-3) The system Flipzu generated this result transmitted ref erence range: 150 - 45 0 K/CU MM. The referen ce range was not u sed to interpret this result as normal/abnor mal. MPV (test code = 10.7 fL 9.4-12.3 01468-5) nRBC (test code = 413) 0 See_Comment [Aut omated message] The system Flipzu generated this result transmitted ref erence range: 0 - 0 /1 00 WBC. The refere nce range was not u sed to interpret this result as normal/abnor mal. Lab Interpretation (test Abnormal code = 90532-4) [place] [facility] HospitalCB (Hemogram only)2021-06-26 04:04:58 Test Item Value Reference Range Interpretation Comments WBC (test code = 6690-2) 4.0 See_Comment [A utomated message] The system Flipzu generated this result transmitted ref erence range: 3.5 - 10 .5 K/L. The refe rence range was not u sed to interpret this result as normal/abnor mal. RBC (test code = 789-8) 2.54 See_Comment L [Au tomated message] The system Flipzu generated this result transmitted ref erence range: 3.93 - 5 .22 M/L. The refe rence range was not u sed to interpret this result as normal/abnor mal. MCHC (test code = 786-4) 31.2 See_Comment L [A utomated message] The system Flipzu generated this result transmitted ref erence range: [...] L [Aut omated message] 777-3) The system Flipzu generated this result transmitted ref erence range: 150 - 45 0 K/CU MM. The referen ce range was not u sed to interpret this result as normal/abnor mal. MPV (test code = 10.7 fL 9.4-12.3 07199-8) nRBC (test code = 413) 0 See_Comment [Aut omated message] The system Flipzu generated this result transmitted ref erence range: 0 - 0 /1 00 WBC. The refere nce range was not u sed to interpret this result as normal/abnor mal. Lab Interpretation (test Abnormal code = 66251-3) [facility] (HEMOGRAM ONLY)2021-06-26 04:04:58 Test Item [...] WBC 0-0 (test code = 413) POC-Glucose [id number] 21:57:30 Test Item Value Reference Range Interpretation Comments POC-Glucose Meter (test 204 mg/dL 70-110 H : TE STED AT [facility] code = 1538) [address] [facility], 770 30: Paper Products Machine Operator/Techni kelle ID = [id number] for Barak Rodríguez Lab Interpretation (test Abnormal code = 27642-0) [place] [facility] HospitalPOCT-GLUCOSE [id number] 21:57:30 Test Item Value Reference Range Interpretation Comments POC-GLUCOSE METER 204 mg/dL 70-110 H : TESTED A T [facility] 6720 (BEAKER) (test code = [facility], 1538) [address]: Paper Products Machine Operator/Techni kelle ID = [id number] for Ad ams, Kimetra Type and screen, automated ([facility] Lab)2021-06-25 19:44:00 Test Item Value Reference Range Interpretation Comments ABO/RH AUTOMATED (BEAKER) (test O POSITIVE code = 2260) Ab Scrn (test code = 890-4) NEGATIVE [place] [facility] HospitalType and screen, automated ([facility] Lab)2021-06-25 19:44:00 Test Item Value Reference Range Interpretation Comments ABO/RH AUTOMATED (BEAKER) (test O POSITIVE code = 2260) Ab Scrn (test code = 890-4) NEGATIVE [place] [facility] HospitalType and screen, automated ([facility] Lab)2021-06-25 19:44:00 Test Item Value Reference Range Interpretation Comments ABO/RH AUTOMATED (BEAKER) (test O POSITIVE code = 2260) Ab Scrn (test code = 890-4) NEGATIVE [place] [facility] HospitalType and screen, automated ([facility] Lab)2021-06-25 19:44:00 Test Item Value Reference Range Interpretation Comments ABO/RH AUTOMATED (BEAKER) (test O POSITIVE code = 2260) Ab Scrn (test code = 890-4) NEGATIVE [place] [facility] HospitalType and screen, automated ([facility] Lab)2021-06-25 19:44:00 Test Item Value Reference Range Interpretation Comments ABO/RH AUTOMATED (BEAKER) (test O POSITIVE code = 2260) Ab Scrn (test code = 890-4) NEGATIVE [place] [facility]Type [facility], automated ([facility])2021-06-25 19:44:00 Test Item Value Reference Range Interpretation Comments ABO/RH AUTOMATED (BEAKER) (test O POSITIVE code = 2260) Ab Scrn (test code = 890-4) NEGATIVE [place] [facility]Type [facility], automated ([facility])2021-06-25 19:44:00 Test Item Value Reference Range Interpretation Comments ABO/RH AUTOMATED (BEAKER) (test O POSITIVE code = 2260) Ab Scrn (test code = 890-4) NEGATIVE [place] [facility]Type [facility], automated ([facility])2021-06-25 19:44:00 Test Item Value Reference Range Interpretation Comments ABO/RH AUTOMATED (BEAKER) (test O POSITIVE code = 2260) Ab Scrn (test code = 890-4) NEGATIVE [place] [facility]Type [facility], automated ([facility])2021-06-25 19:44:00 Test Item Value Reference Range Interpretation Comments ABO/RH AUTOMATED (BEAKER) (test O POSITIVE code = 2260) Ab Scrn (test code = 890-4) NEGATIVE [place] [facility]Type [facility], automated ([facility])2021-06-25 19:44:00 Test Item Value Reference Range Interpretation Comments ABO/RH AUTOMATED (BEAKER) (test O POSITIVE code = 2260) Ab Scrn (test code = 890-4) NEGATIVE [place] [facility]Type [facility], automated ([facility])2021-06-25 19:44:00 Test Item Value Reference Range Interpretation Comments ABO/RH AUTOMATED (BEAKER) (test O POSITIVE code = 2260) Ab Scrn (test code = 890-4) NEGATIVE [place] [facility]Type [facility], automated ([facility])2021-06-25 19:44:00 Test Item Value Reference Range Interpretation Comments ABO/RH AUTOMATED (BEAKER) (test O POSITIVE code = 2260) Ab Scrn (test code = 890-4) NEGATIVE [place] [facility]Type [facility], automated ([facility]2021-06-25 19:44:00 Test Item Value Reference Range Interpretation Comments ABO/RH AUTOMATED (BEAKER) (test O POSITIVE code = 2260) Ab Scrn (test code = 890-4) NEGATIVE [place] [facility] HospitalType and screen, automated ([facility] Lab)2021-06-25 19:44:00 Test Item Value Reference Range Interpretation Comments ABO/RH AUTOMATED (BEAKER) (test O POSITIVE code = 2260) Ab Scrn (test code = 890-4) NEGATIVE [place] [facility] HospitalType and screen, automated ([facility] Lab)2021-06-25 19:44:00 Test Item Value Reference Range Interpretation Comments ABO/RH AUTOMATED (BEAKER) (test O POSITIVE code = 2260) Ab Scrn (test code = 890-4) NEGATIVE [place] [facility] HospitalType and screen, automated ([facility] Lab)2021-06-25 19:44:00 Test Item Value Reference Range Interpretation Comments ABO/RH AUTOMATED (BEAKER) (test O POSITIVE code = 2260) Ab Scrn (test code = 890-4) NEGATIVE [place] [facility] HospitalPOCT-GLUCOSE [id number] 11:31:12 Test Item Value Reference Range Interpretation Comments POC-GLUCOSE METER 130 mg/dL 70-110 H : [facility] (BEAKER) (test code = [place], 1538) [address]: Paper Products Machine Operator/Techni kelle ID = [id number] for PH EN-[place] (V), INES RAD, CHEST, 1 VIEW, NON [id number] 09:04:00Reason for exam:->post-opShould this be performed at the bedside?->Yes [facility] 1955 Sex: FFINAL REPORT Chest AP portable Comparison exam: 06/24/2021 History provided: Postopevaluation Heart size magnified by projection. Lungs grossly free of acute disease and vascularity normal. Signed: Wero Alvarezeport Verified Date/Time: 06/25/2021 09:04:07 Reading Location: [facility] Diagnostic Imaging Reading Room - [facility] 1.310.12 BASIC METABOLIC [id number] 03:58:40 Test Item Value Reference Range Interpretation [...] S NOT APPLICABLE FOR DIALYSIS PATIEN TS. Paper Products Machine Operator ID - [id number] 03:40:57 Test Item Value Reference Range Interpretation Comments PARTIAL THROMBOPLASTIN TIME 46.7 seconds 22.5-36.0 H (BEAKER) (test code = 760) PROTHROMBIN TIME/[id number] 03:39:54 Test Item Value Reference Range Interpretation Comments PROTIME (BEAKER) 13.6 seconds 11.9-14.2 (test code = 759) INR (BEAKER) (test 1.05 See_Comment [Automat ed message] code = 370) The system Flipzu generated this result transmitted ref erence range: <=5.90. The reference range was not used to int erpret this result as normal/abnormal . RECOMMENDED COUMADIN/WARFARIN INR THERAPY RANGESSTANDARD DOSE: 2.0 - 3.0 Includes: PROPHYLAXIS for venous thrombosis, systemic embolization; TREATMENT for venous thrombosis and/or pulmonary embolus.HIGH RISK: Target INR is 2.5-3.5 for patients with mechanical heart valves.[id number] 03:34:10 Test Item Value Reference Range Interpretation Comments PHOSPHORUS (BEAKER) (test code = 3.8 mg/dL 2.3-4.7 604) Paper Products Machine Operator ID - [id number] 03:34:09 Test Item Value Reference Range Interpretation Comments MAGNESIUM (BEAKER) (test code = 2.3 mg/dL 1.6-2.6 627) Paper Products Machine Operator ID - BSCBC (HEMOGRAM ONLY)2021-06-25 03:11:29 [...] WBC 0-0 (test code = 413) POCT-GLUCOSE [id number] 22:14:10 Test Item Value Reference Range Interpretation Comments POC-GLUCOSE METER 185 mg/dL 70-110 H : TESTED A T [facility] 6720 (BEAKER) (test code = [place], 1538) [address]: Paper Products Machine Operator/Techni kelle ID = [id number] for En nisSheryl RAD, ABDOMEN/KUB, 1 VIEW [id number] 19:49:00Reason for exam:->concern for ileusShould this be performed at the bedside?->Yes [facility] 1955 Sex: FFINAL REPORT Abdomen dated 06/24/2021 Comment:Abdomen was examined in the supine and erect position. There is paucity of air in the small and large bowel. No mass, pathological calcification, or free air is present. Impression: Nonspecific gas pattern. Signed: Andrew Palmer MDReport Verified Date/Time: 06/24/2021 19:49:12 CT, CTA CORONARY, W/ YOEL [id number] 16:36:00 [facility] 1955 Sex: FAddendum BeginsREPORT STATUS:A Impression: Mildly nodular appearance of the liver margins. Please correlate with underlying liver function tests to exclude chronic liver disease. No abnormally enhancing lesions in the liver parenchyma.Low-density lesion in the right lobe of the thyroid gland. Recommend dedicated thyroid ultrasound for further evaluation outpatient setting.Other findings as mentioned in the paper bags sewing machine operator report.No additional significant nonvascular findings identified. Signed: Lise Andrade MDReport Verified Date/Time: 06/24/2021 16:36:13 Reading Location: [address] Radiology Reading RoomAddendum EndsFINAL REPORT CT [...] (< 1mm) were obtained. Please refer to [facility] regarding the medication administered for this [...] erformed. Coronary calcification was analyzed using the [employer] system software. These are the results of [...] to the RCA is identified. Regarding the kenaitze coronary arteries, diffuse calcification identified the proximal LCx making accurate a ssessment limited. 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 NON-VASCULAR: A 1.2 cm hypodensity is identified in the right thyroid lobe at image 7. An addendum will be dictated thereafter by Fire Prevention Inspector Radiologist if dedicated thyroid ultrasound scan is [...] An addendum will be dictated by the Fire Prevention Inspector Radiologist regardingthe nonvascular findings. THE REPORT WILL ONLY BE CONSIDERED COMPLETE AFTER THE ADDENDUM HAS BEEN DICTATED. Signed: Dung Fletcher Verified Date/Time: 06/23/2021 08:29:48 POCT-GLUCOSE [id number] 16:19:22 Test Item Value Reference Range Interpretation Comments POC-GLUCOSE METER 108 mg/dL 70-110 : TESTED A T [facility] 6720 (BEAKER) (test code = [facility] [place] [facility], 1538) [address]: Paper Products Machine Operator/Techni kelle ID = [id number] for Eze (contract)[employer] [id number] 15:29:08 Test Item Value Reference Range Interpretation Comments Case Report (test code Surgical Pathology = 104) Report Case: [id number] Authorizing Provider: Logan Russo MD Collected: 06/18/2021 11:41 AM Ordering Location: [facility] Received: 06/19/2021 03:44 PM PERIOPERATIVE SERVICES Pathologist: Tom Paige MD Specimen: Mass, MITRAL VALVE MASS- for MICROBIOLOGY then pls send to Pathology DIAGNOSIS (test code = h0veiTAcRVUpa7ulUYRtfDV 3220) uZzEwMzNcZnRuYmpcdWMxIH tccnRmMVxlcGljOTYwMVxhb bFwHCMrvCUbB9JraaruXBwx BR4tPQ2pxGdebBFklVMuULU rSkXqi0emt280gKQka4frDE HCghgltYf4vDdoM82vd1R5Y ethB13qcORyFMG7DOLnKMAt oSNdVTDaNEY5RFXkpZAxX3i tOPOrTH4bzogyKVavKUltTK IzzGY8BXVckMCrS8WhFGEhU QszPXLlzqe1QtKhGw4qwMGb eTcyMFxwYXJkXHBsYWluXGZ iBjDsYL7zROHTJjXdHZ9GYU JBTCBWQUxWRSwgREVCUklER I1NIdMqZL4PRXHALXEFKgcx cGFyIEZJQlJJTiwgQUNVVEU cBN9FZRAUONRRP1MURSNQI0 IPW2MFQMDKLcRzS7ICG7nHQ RGIZBiYGf0zuIVeIPKUVIZQ UYqeX8NLJB0QFZEROtTLLhT SY9FZX4FZXF6CP6VNNAYTAx EPKV0LOH8HJCCSOARQDzJPW KWUEpZBK5aWY9oxQLqdSNKr C90NEuOFKUSRM46cM1wOEVT LLXZWA2MRY0rCT3cOQUhwI9 WBADwSHsPGTfIAOLCWSC3ZP lPZFG8wQAYkrj83UON2BqSm w2T3QPO7RCEcFFQri9oaBLY mbGFuZzEwMzNcZnRuYmpcdW EqTDKlXmVmr5hvz197jKUlu 8ytSTMaLnM0kXZpGNDoaMRc N359HHNoSCcjc5soe5SwRKI hyAJvt0D4HOAKrkvilEf0cE vnB97ie5J8FxydL6ggNKKgP CPfY3NmDY0iSVWuJry5ZPW6 HMB0VLAuKKHjQ4IqXT3bQMO mgXWjAKm7n2puzFebIDRpKD U4k7blGCkrgvHtPX4kty1dg Hm6p5orswGsASMbTVVzhGNI OPYvR4YdpLenJb9jgUs2rEk aUnneEZI1Mym0HA5pxo46sx p0tOnqRXFkprkjHlV7RNjrT XNjgjeaHJu5DQgiPBVbaHZ8 CNTzhVEvF6ZoLVKsPZ3pbbq 5XSB5LDaaUFQbBfE9HTUobS TzXEXywBlnRPnnb632VER1T vYaOY4bV4Xir8X4vK0tfUXj PYSjcDArQqBjRZOloz7ymRP oPZhnc0WgKUJ8voO0cIEkjC WmXWKeXkV6DMwfXA0dzw68N CQqRFL9ba6ilIWvoVoybsHx eHWcTTpzW4EuUYRtz795PDK qX8EkTBXjw2E2euPpBePzJP MbjBH6hlH2UJOrIM8tgkjpd 9jhDJwxJIcfAIBbshW0bfM4 CUZobINhZ1FjqZ5eIVFmJW9 dlqjzx9drFXJ7EStnIHPhSA T1HiCcAALnf2Tytmi5BbNpg 0GbtSSjHNdyJ48ir815MNYo ocLjM2fzqKDuksoisQCnzez dPNlcdwE9TWZbYGnquandVB ThURrcK6uhJdZlJHMloHqmD Vkan0GkQAFbRUWgBwSdmKZv IKCpJty7UUGyuGVhGGKrUdV xI7tlkxmrUxROXBZrj7szR3 tkiJUBaOPeF3PsWYazyzYiT TtzWKanYgHzLZFvXP36GIO4 RVWome34 CPT Code(s) (test code p5jynHEnRSHguMS8KiPxVCU = 3357) xq7wwy3OymQNjdBOdLDlnuU NehiYqio86jPR1tG91QF7vS KTvCfE0VRTeurJ4Tgk2UPCj HMVdxOOaD433h6cwq9gjvnR kgUN3gMesZSHircrxLxH9KC rbXPLtjsxdNIq8LQrdMPSau GE1UCYqsAQrC0KiWFAoPY3f cyl4ANN4TYfbGTRwFyA7VSA ucLYkURXldOwuOUhom020QF E2QbEfUAQodiCckJhgzG5oB gQbEMT1BBKaSGibGEtyCATL I6kkNKS8 CLINICAL HISTORY (test z9zcyVYgVAKfnHZ8KoWyHLL code = 3356) tp4zpr0PjbBOskZLcXTlxwE GffsWkxj19cOF8pX69UN2bP WJzAeP0QHApmtY1Hrc6TUXi STHeiRBpM192e2tiu2hvljS bmHW7yCaxXYWoncdoUsI5HY csGUMkferkCUm9KHmdATMoj SL4OGWxcJYgD5VdZGWwYS0g qaq3DOB8YAgbXYQoXrB5AGO mrXPuPPEajIndNUrly758UM K6KzJcIAVuyiGttKobpY6bW gZeTRCXncWjR0CiDFf3zKYx cGFyfQ== SPECIMEN SOURCE (test x5gdwUTyIGTbrXB5YkKyRDZ code = 3377) oi2dmj8BbtBOdyMXqPSputQ VfyoBfzy66sLO1sN03ME2gJ WVdRxO0CBInlkD8Vtl8UOTn NDJpzAMyD911z1eqp1qoesE tnFZ6eHrlHTXnmoleJyL4VO gjBXRuxavpPKb2HKehFIZjr JN3NNNfrQNxN8LwXMHlQK4j tvv6NXD2UUrlEJUaNiX5XVK mhJNsMQOibYtoBWywi058VT A4QfGrADFuehRdqDmcrQ6yR nMyMCBNaXRyYWwgdmFsdmVc cGFyfQ== GROSS DESCRIPTION j3vaiSHeMZZroSWrBcBjXRI (test code = 3366) aNPIbg9xkGRWuxUVdPfCwNm NcZnRuYmpcdWMxXGRlZmYwe 4zgi108vMXhv3wwBJIcFfP8 iFRyBOAjlWSgC054JUTqOIp bu6xta8QzMXFecUZdp7W3VH ZJqchbqXz3xSfpM72rs9I9H mitG6klWAJaSHRwX4VfBL9o UDXfAwq8HTL9RWG9XIMrHDN cJ0YaWN2eMOGwyVUbJEi3c3 nadBgzKDNgGUE8n8wiJTgrh rFyQD0xll9rwLx1e0svbxUv ZYOrSZUxbDDXUVOdS8QqwKj qOu6tqBv8gMcnXnnyGWY7Jw b5GB9ehn42joo4zJufYGAur jbxXxV2JJwrBFDrsxnfADt9 MFxtYXJnbDcyMFxtYXJncjc yMFxtYXJndDcyMFxtYXJnYj syEPdmPEScLVB4LHmyu116D OV1PIqmr4mwn6zbzXFlBmu9 PRWcYnGzGhjtVOhdh3Ort6c fRCOcml7jYGK5pDBupEgpb9 G0gVVrAVLtuNLilkJbKLIjH uK0WWepQJ0hig21SAWgDRG7 ep6huSVuyPcxzrLjhQKvKMv bB3GaXDNyu826KRUxX3XsKX Btw1R1qdYfJaCjESIvuVA1c wY4MSAiXKy6tYXgqaU7sjGe oGLcG2dedU99WzNzhUHoJ1V lmH52DeOltPKlD1VwzK80Jn DbvZDwK6KhsP36CzAzgKFrL IBiqBCqBd3kyEZhgYSom7Kb mWUnBAckA86pu526AZHwuyH bG4wqqTImuwaboRJddpjoTO ihmtZ8GRAyNEDeAPkeKRCoC GZzMjBcbGFuZzEwMzNcaGlj wVjdQEaxLsQnHMRwSJaoL0e cZjBcZnMyMCBBLiAgUmVjZW q9QUNptH8hBy3owSIfpM3ed UIyFDgaDCO2lDDtQCJiNKLn PREjDX74R2UfwS7sm6RcPEG qf17gVL3rTFYjhYOwCZiptj FsdmUgbWFzcyIgaXMgYSAxL qZxZ25vuO1qqIUeE2AwEFZ6 IDAuMyBjbSBpbiBkaWFtZXR lloQ7IZ8rtWxwqfD5bCIwtX GhSUeutFEuDWhtEMR9Cj8ia IRpTEVjcfM2z1XuMBfzKVOn u7KmnGJiGPSiOyohYTGetLY xTLNfjrFygFqmmL8bAoNlLo MyNFxwbGFpblxmMVxmczIwX ZzprbyxIARvUIizB1ooUjNi UQTpjTeaNKatb8BeFAPaYNI lPhZsWEBhGZTqj8wjGE37FG xwbGFpblxmMFxmczIwXGxhb zwjNSVwIGdlC9vfYsLwIYDf vSscWYqfc2ThRYLeLSTeFyN ccGFyfQ== MICROSCOPIC c6ogtCQjCBGkuWT6BmGeGQD DESCRIPTION (test code ii6tcv1XajUJapVMaYObogQ = 3371) TvncVvah89lGC0lC07IM9uU VLdGeQ2SNPuztW7Fuz0OKIj UARjzYXoK654v2ejc8uqppN pkPA1uEfaYRCafdfuZbN9CM hsXKOnjbwxBHa5TGgoPORcm OX6VXEuhBHsG1DgDCZtYR9f oou5LVN2NZpmHOZeXdR3IGX wlFJiGCUmiAzzPOahv502OU B0LcEeESDvgqGmjTgqpC5mL dXbQSLPQRXho3KfIMMqIUGf cn0= SPECIAL STUDIES (test j9irsFMjGREirOS0IwUmWQZ code = 3376) eu4uqv7WyiXWswQQoBTrhyD GoruTevf46pRN0vR87JP4eS NSvMeE7BAHyidJ8Opu1PNMr VHLtvEHiW352LCWrJIFcnNm agxj7fX96GGRkpP7keZXyUY gbvkVzGLirkpBzptZpVve8K LS6vEvvLNOwoluaYlO4POgv AHHkulbpXTc5YMgcJDLhfIY 9AXZfiETtL9JnFJDsMU3wea n5FFY3JWmpHEHgZuW4PXMsr RUnZITlsPfeDKwye320JQI7 YlTsOHWetkCosZzvjG4lBxK cZnMyMlxjZjEgVGhlIGludG FtfGQsvVF9mE5vVD0jVJQwh EByO1JzWGYyrzCngBQaMOA2 hPJjnDNcOP8iJRuxgIQov7z wu3MpC1smhJiywVY4TB1dNQ KyKOZzAUpkq0XlqE6cRbumJ NYkW6GtRPGZI4AVPUZuHIUV Lq9BYeSHXcErRjGNQc9bBIk NUywgQUZCXHBhclxwYXJkXG GfTZSEf057gn9wETWngMJiw uQYdNDyvM6kTIxiMXyyDDsf cPReWVvjc3xuADOqp5r9aZH xOPGrcvCat4ncWGzlqnWiTP IxdXDulUEqGCAvl06qCOill SknmBjsXBOnm1BerPdio9Ic VtCtBJymc5SsE80jnBLmtNH arXkjVFVxyxGwMYDrh30pg1 pmLRMtEeW1fHDvoJK9zNOzf BUor9MysJojLYLmd4rcWDVh zs0unxegqYVvg0VtzM1crtu qQRzwvFAticLrLNGzo0v4jX WxTAAtKKAtHBieyRz1UUMup 069vx5qagB8wUXbWZE8DYmj YWJsZSBhcmUgZXZhbHVhdGV tQHLoanYeJZEtabHGrE72yv 0exER4s3KgIV9jt9QwaLJ8W WNobmljYWwgdGVzdGluZyB3 DPWucPQgTm1rmQVrWYV6IOB eyCrcrcXXpY9oVATeQFb5RS AcWmIfPpidkvMGKZDeJ3VbN QUstsAnlxmkGIF9aA8ah4g4 TNljBq6uIVHmltuku2znboD siXBjp2ToEOTpmpAzm7GaZQ SpzcEsnSPzLBWhmcVoco8ra kPhVCCsWIYkE7KxqojdqMxf aaY4GGKdDBZtgJYxeUqfSPO yFPk1JWigydWdn4HoGkSelr VhcRDzwwDdVY2dKWPtjPSgk fToPNL9ZQHsKENWOoOpQDFq a3RaRA1lVHZnfSpcPEMxiH5 ul5BtRVUfm92sTORkBJFEKT EgaGFzIGRldGVybWluZWQgd DrmfTOdbNJmCDTfDRAfNY5c VTHkusTulIFep1GseTBouqS mb6ZcufUwMTThLOY1XzLPhZ IlxMKvkXEctgN3w9YbBMKyu rNwmIkrbNRgbOZcpULds5Fk ox3kWWLhw5gshBlaGX2oiEK iZSByZWdhcmRlZCBhcyBpbn Uye2OgN1B9wM5mSHrxk2EwO d5vTUMde7VeszHeKhVSgZle XDwmAw3sZCLberuzaBDoA7A ydGlmaWVkIHVuZGVyIHRoZS ZPnAzdsWFdaEGMHCMbqjS6z 6F2MLpydSHohhVzGU91CLJp CL5cgPBpeFEvv2SpQFu6BZM dM5hJPS90NKynSIMgmKZwxH dcwGLkIQZkHKLqmtMlnd7jf MjcvJYjv53uqNY5zRD6YFNb sG6uO4QxAWhmPz6xDQUgdot zoAHzrYwvYe6trUZbfD== Gross assessment was [facility] performed at ([facility], code = 2777) Department of Pathology, [address] [place] [address], Technical component [facility] was performed at ([facility], code = 2778) Department of Pathology, [address] [place] [id number], Professional component [facility] was performed at ([facility], code = 2779) Department of Pathology, [address] [place] [address], [facility] [id number] 15:29:08 Test Item Value Reference Range Interpretation Comments Case Report (test code Surgical Pathology = 104) Report Case: [id number] Authorizing Provider: Logan Russo MD Collected: 06/18/2021 11:41 AM Ordering Location: [facility] Received: 06/19/2021 03:44 PM PERIOPERATIVE SERVICES Pathologist: Tom Paige MD Specimen: Mass, MITRAL VALVE MASS- for MICROBIOLOGY then pls send to Pathology DIAGNOSIS (test code = [id number] 3220) uZzEwMzNcZnRuYmpcdWMxIH tccnRmMVxlcGljOTYwMVxhb aQaGRNpdVDrK3XbmdbvJUnd LD0uKZ3oyHivmJAkfUStNYM lMzMou8vhn174jFKkg3zmEV PQuefqwKa9nPvxB23rf9T2A wlhL32izBCwQOP8OYIvTDMa cMJqBKDrVJS7GMLjiIFgM3k jMMHcCQ6vfatfCEtcEAgvES UkuOA4IUCteJMcG2NsQRFxD LwdKVObsoo3CwMmLv2zrZSg eTcyMFxwYXJkXHBsYWluXGZ rOrOsEO0kVTZMIjFaOO9EHZ JBTCBWQUxWRSwgREVCUklER E5KVjUfEA6PHIFLFNOIYnwd cGFyIEZJQlJJTiwgQUNVVEU hQS6QGSJPAEYPA4DVEGXJA2 YEQ8NMMJEKHcCqK2NWC6sGR XJQZCjBFa1xwJMrESUELVDC SDcoJ7LVHO0UQJVWLiRNGdP OH3PXD9EYLV1VM1TDJFXEUe UBEY9CJN3ZRFTTGZIOReUHK UFBZgKND0mLW1jmQWvkIXKs K29OJiGADQFBA17iC4mVWGR HVPYKN6RIN7yLU2yLBQvdK0 QKBLeXSeGSUwAKCPGBVC1FO vXDWZ0bDHLszy67LPC2OpOf h1T2WJQ9QRQhIZNub2tcUMQ mbGFuZzEwMzNcZnRuYmpcdW KbNXPoRlKuq7ujk634gSTif 0kmQNVhRgG9hQKrONQksTJd E899TVBcTRkrh1tzr7EsXVD gzZZtb8Q7LMXOrfhxuFz7bK zjZ72jm8M6CccvJ0hnTJUdA ERdW3PfML9aHAXwImt6XEY8 EGM8USHpXGOpZ5NaYK8iQJH qnAJkOQh4e7dqzNjqFUCcQN T5j7riHRvtwvKyDE4arw1vs Qu7w8uwfxHlNSNpVQTzvTAN NWAhH8IenWltMr6rsYq0pYl bUstdHVI7Iti0IX6kki75uy d6jBlaEOMkgdgzQhH4QUxrP XSroqhsHEt4WQnqLJTxbZA0 INOwtYLmL1ClLJFjIB9mtix 6ZNK7NDayUAJqVuI5EBSnjN VbIXEisLthEJwfd022KII1P kKyBB6wT9Evu2P4eF9cmJVl YVGfoRGxVcGmPMYjkx7hjBC fQJarl6OuXCU1pbC6zFBxsM IfTKWxEuI9ZDyqOU5bdj77V WCeYQI4pb8ajDTinAypaxCg xNCyCJixT7MhUTOzc457GQP gS5VkUXGbo0M7gyGdXgEuOS EmpIC4ckH8BULuXB9rmipzr 3jnBNbaTUqwMGMjloQ6myC2 XDVnwZBhG2FwkM6iRLQbNH6 yuxuyw9aiGKS2RVxdXQElQS S4ZzGpKLRuh8Hlzkv7DoTjs 3CglOLsQGrsA62in537EKFq zmHsH8xwhNFohhtawWPxvac pCHyuusX3AZJuUUzhtvigUV IhHGntF3dnVcKaUYDrmYznM Xmzq0OuQQNrPSHfNiLatBFy AOJuJvf7WGDooQTcLADnXoG jR6hwtiopUyZWVGHqm0hjL5 jbdGWQhAUoG6KjYCvjanItC HtsWWzfVsPcQEKiIA70RIN2 XYWywl26 CPT Code(s) (test code u9ybeTUgBSLluHL0ZeTbMSA = 3354) ct2nge7LxjAZujMHtEPvyfF ByaiLrxh86iXJ4sM83KF8gS QMnSpU2BYHnbmU9Uwh6LDFg KQVwhFLfO457d3wai8hcdwJ jgHZ0eQrtZLZwozztMyO2QL alQKCjzemwJJm3ZEutFHGtd UA0EHLegQHgH1AyNTEhVJ3g tzm7CIU8GIrgGKXpTyI6MWO ktOXfJBNfhTqxORlib161LT I5GzRjDMZqctRhqTdppU5oN kTjAVB2PPNuFLifXPsiPDHO U5zoNCV4 CLINICAL HISTORY (test g1dsrVReRZDmmSM7RcKsAQL code = 3356) ai3fyk9CfzINxlWWnXAyniN XbfsTojo09sUQ4cW13ZD4kW ESuUwU2YKGjaqZ9Ejv8ZWVp QYNotRGcH356f2eox9ubvjN skCP0kCzeQIAqjptlKlC3NQ lmKECftsauUUn3PYmtLVRcd JG3JVEtjNYhT2UoFQFrQT5p mbm0TPQ7XHcwIGUlGwA7KNF guUAnETGrfGlxREian405DG X3IgPzMTFwtiLryIhdzM7lD aNoIUFGmwWrS3YyZDh9cGQb cGFyfQ== SPECIMEN SOURCE (test m0xeySAmUHZbzRE9CmBtOFY code = 3377) iy0sfv4IyiRVdtOYwKEoqfM WgrgQntg42wAQ7nS93RK6iX AErUmA6SVKfvgB0Sog7XGQf AGDrhJFeC319z5dog2khukT cqDZ5aBldUGZgfqtaKcE9XB chBAUxwzcxVCu9NSthXSNkf XJ9YQAhbFOpO3WoPEFdYB9e trk9RCW7LPlxLOUhUcN0DRW ezQDuQDNfnDrhXUtef224JO Y9YgXjLMCoqkGqiVjqtP4jG nMyMCBNaXRyYWwgdmFsdmVc cGFyfQ== GROSS DESCRIPTION i1lzfPJzGWFxsEMzVjGhGYW (test code = 3366) yOKFrx4ctFVOgqSSwJwAfUw NcZnRuYmpcdWMxXGRlZmYwe 4zvn550lIHjm6zcSMPlBsL2 qLZsGQEatIDzC010BQEgRUs yw7mmk1KwSEAknKDno8A3UH KEimoxkUh1fZleX71gx5T5R ahgL9txGKDtZRQkG8QdFQ5j IZMdAlv6PXQ9BHK6KWByQQM rL3TpDN3pPJChnNOxDLx0b0 zqqHgrQVWbOLT1z8fdYUynv kHbBA5fas9guKf0f5clieFh NVEjMDTziZGXPKDoP5UdlOn bPr5peAh3jDtgLifvTRM0Gy w5QJ9fud92pda6iIlgNWRqz yfxOrO0UTfwRWWoaeqvDHg9 MFxtYXJnbDcyMFxtYXJncjc yMFxtYXJndDcyMFxtYXJnYj lySSkoROIhRQS3LRcen624F KR9GEila4jyu9dabWOlHsq2 HADiDhPtMkmfJJknb8Jmo8m rFUTbly6tEIJ5mQLxiBvee4 R3tBHfCROhxVUmlySzBJBgT hF7DCkhMU4orz05ZXEdWBK3 oi1pmHAdhIxttwNsdBWvJPp iZ2DhNAQns363NJAoS8QdPS Pnw5N3tgQcTpCzLEJlzRZ7y aE5GTKfCCa3dQBsytH7hbAb gGWrD5slzC32ZwEtiQPyU5B lmG86OuPrfPRnC2YvxI11Tp VznNYkE0PxeE80HwFrvXYoM RWjjDFiZs4msTGydVBcs5He vWEyUTdhB26dl888DOHegbK oH1metWKrpxhmgUJeulolOG hogzP3MEMrKUQpKTpsPSBgT GZzMjBcbGFuZzEwMzNcaGlj bFayJSmsSaVuVODqWZgsT7f cZjBcZnMyMCBBLiAgUmVjZW y6AKCpvO3iVq0gzRFhrM2vl FUeSDumXHZ3jUGrXBAwBBEx GVOsXT80F5MykW0jc4KnQDS ij44gTT5xTSBboWDhAHjdng FsdmUgbWFzcyIgaXMgYSAxL jLlE60tnG0jiJUrH7UrNUY4 IDAuMyBjbSBpbiBkaWFtZXR dmkW1IS9pcYwtbmV3rENpuZ GaQKyfrYFnXVceWJK6Kq4wz TUmJJOobvB6g3DtIVlsHUSq z3BwsFOiHQWtGdzrJRUxbMP sTJGznyNupFfheJ2rCgFkDd MyNFxwbGFpblxmMVxmczIwX BoglmhrFVAvAYmkD4loShGv AUMwzYdsYZmht3WxOGYdPWX gVzJtHXOgQMDfo0srFQ05EQ xwbGFpblxmMFxmczIwXGxhb dkpJCYtOPxwK9ujLfGcGZRz gDqhJWaxg2EbCGEyKPIvZaQ ccGFyfQ== MICROSCOPIC m0klyOBvJCWdmWR4EnBvPTA DESCRIPTION (test code sd6dwt4OkmNPcnEWsKRlrmE = 3371) OsukMavx54jLV6mA12CE9mB WTdItB3ESUqcjY5Zhd8XRNc CFCqbXQlO606b0els3zgsxH wcFP4vWyuHKNjgihvXyN3PU vaJNZguzdzKFr5IVuvVSFtx MA2ZTFrpJLbI9WlVOAqYT8x hjb7TAL0CArfXUYsZgC8HRG biFGyODFwvCyzDThar300BD B8QoDyWIFszpFnqUyhzC3nZ kKpTXFJJXPkq1QbDKMdCDTk cn0= SPECIAL STUDIES (test o5yyoNOdXERglDN9JxJyCMO code = 3376) ce1ohv3KxlLIjoWSnXLpplA TjayNama24wBP0zW47II9tJ AYfIjF0GXXqtfT0Stj0HBYd UQMlaJHhP308GESwVPVnnCx wbtc4mX89HVPshM6rhJCiKU zdygGkJXumraOkfhImQrg0C QU7kTmqWTDroemfZuT7ETrq SVWtgxsvKZv0PTsfDNRgeQJ 0QQYnkIXnU4QxWWPoOY5qvh s3NBH3NYscAWNkOpF8YNZdg GOiPWKobVtzRCiux929YII7 CtHvUEJbtgJehFtowY0tShQ cZnMyMlxjZjEgVGhlIGludG FiiMCcnEO0kE3oVY6nFJGvc OErU4WjJHOqlnFpxKAxWSP2 iPDxdFEcXU0vBVkvuAYgk7t oz6UfS9uhvDvhmOF8XZ6lWZ MsILTyEDnoa2FknD1xCbtcU GLaG7YnORNZR3XNCVXcSYSW Si4RWeAZRuDjSvIVEb9uDIr NUywgQUZCXHBhclxwYXJkXG CxOFGPo536tr3jDZDvhQBcg fTYkSEoeL1uOGguXZdiYRev fBPpMQxit1ikAIGab9z3hZX dXGIuhrXef0ewBJpiiaEyJY HumLOrhIEnBHXda00nQJqqs PiqaLxbRXGjl4GtpNlwm9Pa XnNzQKfgu7XzD49zhSGncSH wzLinQTZqdfQbJONfh44se7 hiBQVqWiP7oVYztDK8gZHfv WIzq6JzcXmdPRWwe4jkOMPc jt7ykxyfkHKou5ZesF7yqfz mZYhkdRCyjqNqGVVsx3e4tA HjCGGnQBDvPAfkoMm8NRUgi 968tn8zyaN8cDSfNRP5SBem YWJsZSBhcmUgZXZhbHVhdGV sRWFgsnZzWFHnsdXEzH80lx 9dcXN1x6OcMO0ub6FgvRS7K WNobmljYWwgdGVzdGluZyB3 GFBdgDLaVw9iiVAsEHX7MVB bfOpkeoDGbW7hPWFdXSz9ED JoTaWpAcddbqKLUUAkO6FoC GVbdyMrnqsmZDV6uR4ca3i8 INcmAc4iPEGahwdey9kpqyG ttXBtb9XsPBMkabAgs3DaEO KdfkKnfTJqCYTnaaDdrq3vf nFvCWUlUSVeE1NxkfkpvUpc hpS3DMUqICEayXFepRulELZ kOYt7YUwclsLbw9VnJeMyoa EjcREzcpHoZN4zGINbkOFxd cLhBGI2YDJzTHNPEwWqAPHp v2EhWS3zAKZdbNjrSEXwaA4 tw9IzXOZrc35aXCTnLCZINT EgaGFzIGRldGVybWluZWQgd WqlaMRbfVBpUYXsPUVeAB9u YKBausGzoPRao0BhdNMdneH uc4IisaHwFEWzTVC8ZyBRvK WziBTmtMZatlV7l1VfCSTnr tBbkDoqfRJjhUJrdIYvd0Bq kf2hICPom3rfaHezQI6mqZS iZSByZWdhcmRlZCBhcyBpbn Gyc0FgZ8N5nE8nTBjkt6QpE m4yPFOuu2MylfMaXdUDgDmh UQcjAp9bXCFyzllldKAqU0W ydGlmaWVkIHVuZGVyIHRoZS DTfOtskVBowNUQMWLbggD7h 5I6MQpssULokgHjIY20ATGj UB5rtZHgzGCki1ZfWCa6KUT dW2eXLA23GFqpWXFxuZHkgF dqiRZaFBIzHHOsnxVdvn6pa WzmeEKbh53rsFN0uDS9DVQr zP0wJ3UlRUynWl4zPRGrxcv elAZwvXqmDn9taFWphM== Gross assessment was [facility] performed at ([facility], code = 2777) Department of Pathology, [address] [place] [address], Technical component [facility] was performed at ([facility], code = 2778) Department of Pathology, [address] [place] [id number], Professional component [facility] was performed at ([facility], code = 2779) Department of Pathology, [address] [place] [address], [facility] [id number] 15:29:08 Test Item Value Reference Range Interpretation Comments Case Report (test code Surgical Pathology = 104) Report Case: [id number] Authorizing Provider: Logan Russo MD Collected: 06/18/2021 11:41 AM Ordering Location: [facility] Received: 06/19/2021 03:44 PM PERIOPERATIVE SERVICES Pathologist: Tom Paige MD Specimen: Mass, MITRAL VALVE MASS- for MICROBIOLOGY then pls send to Pathology DIAGNOSIS (test code = [id number] 3220) uZzEwMzNcZnRuYmpcdWMxIH tccnRmMVxlcGljOTYwMVxhb vBzVBZklTGwM0KuirqcXGhd TL9qDZ5jfBgawNRwxPJlTQR bErQuh3dfy252dTXhr9dzYC RRmusftRp3oUjoP79wn5J7O rglQ95odJNuWRP3RDWfKDJh zOAbKDAtZOG6RJMjyJKvB2d lMFPnLE1rfzkhQFqdXCqmCF CsmBC7AAWhhKVoY6BuVQOfT SfoFCPgpec5UmMuRj1kzDZk eTcyMFxwYXJkXHBsYWluXGZ eIcRnNO9oJUHCFlVvEO1MHM JBTCBWQUxWRSwgREVCUklER S9EAvPlPG6ANSELYTFTYsnv cGFyIEZJQlJJTiwgQUNVVEU iDU9NHBGBPOJKY6JWMKQSU2 QWE3OINTYLIoNqL7YHL5pAA AVEJGsMHu6hkLBsWPKQNXUV DIehO8ZAVS7BZIJYVtQDIjT TB7IIO6HSPM7NE3GYTBMWAn FPKL2CRA6DJDHDJWDSIvZBU AELWrBCN2oOG7qaZUalCGQx V89GSxNPCGNUC38xY9zNXAF INECGM3EUR5iKW2uWIFrxC3 ZASJpXOjJTKkBKWJTMXB5RW hGCCE7oGMQbfj62AHW1CfWh q1V7CMI6YERiZBFkm0frBHZ mbGFuZzEwMzNcZnRuYmpcdW GoXDFtOkSoo2peb785sMFvp 1uuUFMiJcO9qYUpZRNtiAUu T059FSLrTLdis7uon3IvVDM zxAAss3S8KDVAdnwpgEg6aL gwV79dd1Y7CsxkG6csNNKxU MLeY3YdCM8mUEOpHsm1YDK2 MYC8ZHSpIQAqU7DyEL9rHWP ayWEjYVq2b8qroPmrWQFpIY V0o0qxSVjwbeSgYG1ktc0wx Na4f9cbqeBwVHKoGANdsMMN LCNcJ1IpcRyfTg5cuIf3gQa nQnpvVTB8Uzr9OT5zza61wy t1kYrlDSWbiptaFwX7RWjjO EMcfswwEJo0VJjcLPYvnZQ2 VAHgkUGbZ2IpZSCvLU8acna 5VEQ1QDdmXROhGzC7CDAsjR JyTHTjzLwdWJxdh558CEM8J jNdXC9oB0Bwj4C3kW0saFJj VECioLRcWxPcEIJtze8ncYC oAPbhn6WnTNT5vsW6pERcbC OhHZHiArO0RPikEE1mjx81A XQxEBM2uy1ttJBqhIttmdKj cBQwXJutV4OwWDSig703FHL kS7JnUEBql3N8wfZjHzIsSZ EupHU2cwS5VFTdCJ9xhavfj 1ngTDqdOJsxNBFfsdL9slW3 RMVdlXWkH7JaoW6pNJJsMR3 kjcngl9nbVLA1JZzjHPNjRG K7AzUyMBNtn8Ktnam7KuPev 2ZfoVJvRJtuQ21kn270SUEg rdLpZ5szpSSkaxaqpLTilri xCZotpwK1YXPtPFnkzczcJU QdVQnlJ4pvTmCvLJWdyDxgK Hdas2LtIBGyNVUdFgOlzJFd QFFgGiv3XTXteSGdLDYnPmM dW7sbzbnbTxHFCRLir5nvU1 ksiGKEaVXiD5CoJCapuyCcA NdkHEwtQrItSOZiQT27HKX2 DHXudt50 CPT Code(s) (test code k5fqwKReESXbpQU6LsFmUPO = 3357) sm8kih7CchNMajJNlGAaufN BlowPznl40yCV4dG69ZJ8fS ALpVsO8ICImixN4Atr5IQUe KXLfnMFrV733v7gvn9girvY oeOQ4nEqnHGAqqantUcU7MA ppGTDqmhtdLAj9UYqfUKCfj YM8WJGyoLKrB5RxINVeSJ7b fiu9VHV8JQayUREnKhR1BAG cfETdVPCeqAaiRRlsp507XS F8HyIzOJPhrxJmcPxfzP5uR xGsXGB2RJBzSBvfXOnrSPWF K6ksUDQ3 CLINICAL HISTORY (test s2otzOCjSMKmsWP2MaMyBCV code = 3356) bn0gnx8RqvLDtaVSqMNxpyB InmnYgxp26fYN1hA60AC7hD ZDgYnP4CLPbtdZ3Twt1FLEk XBLblSDqZ498l4clh3jhpuH xxBX1kGyrUHTgicxtEtD4XG csMNRezpwzNMq5HVkdBZFew JQ4TQJplIFvB8NsQCKuWK9g vqr7AEM3JReqBHWpMbJ5GXI quSCfLIQphXxbWDnvj512KC C9OkBpWMRorlRurQdecN8nW tTmUMOVnzXvL3RtNHh1bEVp cGFyfQ== SPECIMEN SOURCE (test n8takFFdMOLhkZT5ExPjOAI code = 3377) df6ynk6YveQBffHCvXFoevO TzekFcei06zCX1tG84CB4uZ HZcGaX7LYCxquG2Qcr5JCRr PUBbvUOmS585b7mrq0nsvcG bhXK4yNorCHQsaksuSnU0KV liYZOmipgiCZt2ZNdkFDCwd LQ3GHOugSUhE1TsONOfOV3y bzh5ZQP6SByhFQYuFtO9EQQ qbEQtRDZjvCwuBRdmu064PW V9XrSlPLIylyGutJletB7zZ nMyMCBNaXRyYWwgdmFsdmVc cGFyfQ== GROSS DESCRIPTION j4ekzGDcIZCgyOVtUaAuLTE (test code = 3366) yHQWpg3iuEYWfjELjHyCdNb NcZnRuYmpcdWMxXGRlZmYwe 0prz245hZNvy5ibTOViYjI5 wWFcEUIimJUtZ258PLHzMDw np5hyi5BjCWYycUIoe0U0RC AAqzqaeFv1lMjmM11zp9I4E flaZ9gfMUHzNBOpZ4YuCV4j QZOoScx4UIW3SYU0CKMcOIK rM0QbVG1eCYRpjPAaVAl7g4 kkoRzvQXBrOFD4i6lcDHgma dNlML1wme8lhNd8f1mdvkDv WFYxZSJlrLWKATYzV1MxcGl mWj3igSt1aKxmMkzzPGL2Af q3VS2nnv52pmx3sAoqPIPps xpgJxQ5LGjrEFTeayawECd6 MFxtYXJnbDcyMFxtYXJncjc yMFxtYXJndDcyMFxtYXJnYj zbSZykZGTyVQU8CTvbf090N OX3VByez9rse7lctFWsJtk5 BYOhXzLiGxyrHCjgy0Xek3o cEGVcky3jCWK7vALqlQcuk9 J8jGYoYDJxoFVeuqUnPYAiO hL6XQoaCY6vct82RGIdUVF3 xv1sbPInvKkfeyNvaTEqZFp oK1JzPVXal361QPWwL0ElTA Nvm1U4fzOoXkZnOIXwoQK6l lO8IDSaNSg6iLMiruF5lqFr wAOtB7xpiG02FgJeaDZqS9V sgJ75MsKrvGZzM7GzbP87Lz RpzOUoF0VfxL30NsChbHMrD KQlbRIcQa1uqTKzpOFwl2Eu fFNiVEueY22ck581JJQcbuO qK1gxxDYfdbfzaQPvdnevVE puapT7ROMeQQMsMYprJCTlK GZzMjBcbGFuZzEwMzNcaGlj yGruMGyfDxFjFTNfRNsbJ0o cZjBcZnMyMCBBLiAgUmVjZW r5BNFtlH5jZx5ruUYnrB2pa MSsKJpaWIO4fFUwXCBbREOi CUMsFU72E8RbsJ3gy4DeHHD dh04oUU6yDYKchREnTBdemr FsdmUgbWFzcyIgaXMgYSAxL hPiN43lhH3agLEdI1LfMFC4 IDAuMyBjbSBpbiBkaWFtZXR mtjR0WA5quZpufvW2cZIdjR ApIHkgfJIeHOsvONJ8Sp3pn TYsDQSlklS5n4EsAKddPSAj r0WfqUEoIGXoBymkAZQycRO pEDCkqdXnlRqizX6xPyMyFs MyNFxwbGFpblxmMVxmczIwX GiqjarcIGWeIRtvE8zjXrRd WBBumJyzIVcmv6FhLRYaXLC jChEyUPJnOMQwe6bfHV68FH xwbGFpblxmMFxmczIwXGxhb ezmTUFoKTjbQ8moPnIfTHNa eQidOKvio8PkHXJnUQZnVuT ccGFyfQ== MICROSCOPIC f1nijNCwJULcoPL3TpMuNAK DESCRIPTION (test code ks6gfh3RjcSEbgUTeRRqaqN = 3371) RvgpCjyw21zHZ9rD63IB2eC EAlRdZ0UVFlbjU0Ntp9ZVOy DLPbjSYdB852p8kkx5cnmmI fiBI4uLeuUOCcbefdXoM7ZM xbLPZtyldeVHl8YEamSKEld ZI5YJWnvIMrP3YdUWIeRT2v jrj8PEW1ZSrgSZUyAaT9IKC jkZDpLWLadUpzGAgae668EU I3TsTrFVCoorRvkFzqyY0zE wUdLBBFRTQna9HoQLYrEQQo cn0= SPECIAL STUDIES (test g1osiHXqHVYspBF9AaLgATG code = 3376) rm4gwt6ItoATpwTMxTYxxhU FmxbCmyn12dFK8aO50CF2mS SMhExK5ZWXorhC9Zgw7HIBa GWWcnBAlY780KRLiTQEipIf geif0mK95IOQsuI6mqFCsER jlhxSdEMqxfgIykiObPhw4F ME5sAmvHAKotvtmPaC8QXnr IWXfmkgaFSu0QXcsGURgcHY 9JROsfMMaT9GyODByHT2ejh o5CYY4QZhiVTPqTgG2QQVxi PMqTCVerLrxONhjo535DQL3 ZrLeITRaacTkcRlfsS2wPnJ cZnMyMlxjZjEgVGhlIGludG LfyRGepRC2oT7jPH9vIQFsj REoE6CqZAMmpwGkwBIkBOI4 pBOrnVQzDQ0eSQzjoIEwc0o hn2UmE6pgnQsupXP2HI9jAJ UpCDTcSJhot7VciQ1iXrtuZ DHqZ3KsCEFHT5GTZZEhXVYR Le3WBeRIFeBvPlXKSy7zSIt NUywgQUZCXHBhclxwYXJkXG BgITQYn427as0vENRxcFMdn yTBmUAigB1aOIynILkcNSrp pIVhFEsmz5enGQFyg1u9hRO tVFNjsuXog1bjNDhpbjZtEN CxkEXoxKRqXYCmu18fNZacz DnkpAlhLDNql6SjjWdqb8Pw IjOpIQsug2GiT08poBWdmUO psEobBHHohoFrUQZmz73pe8 raWPTfFrR9qEHowIV8hUOhn WIqw3OnnJehVZPxq3mlUBZf en1xdogubERbw4IpnF3lzor iJUwozJRteyLnLHBem8j0qF IcWVTtUPYkBZbufOa4QXQmr 239aj4jeyT4gVMxVLA7CPep YWJsZSBhcmUgZXZhbHVhdGV eQLLydzGtNRThvzIJdN71eg 4gbBR2g3SyQT2oy0KzrSU1D WNobmljYWwgdGVzdGluZyB3 HQOhtIDiMa3wjQKdARQ4OQL dnGxhfpTRsW7aMEJzOTl8KO BsHbApVctzwiSILBHxC1QxG KNxcxOqgamoDLL8eB6pv2p4 XHfzLd5hKWEkqdluw8daqmX xkJXxr5MlNOSzddZne7EbPU XozkTnaHHoSAValePrcx1nw lEfITZbVGVlK5TqvilsaNmk gpX1MLGwEKQroNDinUnqXWZ qJTr1NOdkltKyq8WxRmJnto PbeBPyybXvBD9fXFPyyCPpz wNtKSI7PUZyBAODYqWmBFCd m0BbMP6xAOXlyCqsEXMxyY9 ud0SfPPIyr44qQZJlBXMSNY EgaGFzIGRldGVybWluZWQgd TwolBDgiKKmUMKqYOYhLK1j WMBxlxUhwFEjn0WdeDTjloP ff2FglpAxESHbHPF1XoYCeK VeqRMxnYIwsgY0e3SwPHZpe jHkoYtwdQDlkGNmkNLxv3Vv px1gVDRma1hxmAubCU1iaRY iZSByZWdhcmRlZCBhcyBpbn Ory5UnR0Q7rK3aDEeow1QgF s8rCYNnu6SmaoFyPfTThEbd ISazMc3rSFUfnjbziIKeY7O ydGlmaWVkIHVuZGVyIHRoZS OYcUxbuZIxvDBWQWKtfrO2k 7N5LKxusXVffjUtJZ68QLGh SP7owIWnwDTlz2CkAQs1LVS mH1xAGU26POxcSGUbbHAqwA fnoWClKJBxYOYvsgBbxv9nt SmtbDUwt86esOQ6sFW4BVLa oW6cA7ImYQhkMc0gAFZvojn ogDHpaAptGp6wlXTsjT== Gross assessment was [facility] performed at ([facility], code = 2777) Department of Pathology, [address] [place] [address], Technical component [facility] was performed at ([facility], code = 2778) Department of Pathology, [address] [place] [id number], Professional component [facility] was performed at ([facility], code = 2779) Department of Pathology, [address] [place] [address], [id number] 15:29:08 Test Item Value Reference Range Interpretation Comments Case Report (test code Surgical Pathology = 104) Report Case: [id number] Authorizing Provider: Logan Russo MD Collected: 06/18/2021 11:41 AM Ordering Location: [facility] Received: 06/19/2021 03:44 PM PERIOPERATIVE SERVICES Pathologist: Tom Paige MD Specimen: Mass, MITRAL VALVE MASS- for MICROBIOLOGY then pls send to Pathology DIAGNOSIS (test code = [id number] 3220) uZzEwMzNcZnRuYmpcdWMxIH tccnRmMVxlcGljOTYwMVxhb sMoJKCkmELtL5YslifxPFgp ST5vFX8mkOevfAEdgTAuSIO pWkQhj4hcl131oIHlh5skDK AWpzzpmIk8wOwvT19qq7U1F swxZ38qaDNtYIY8PTUzDYXw sUTtSXIjRLG9HGAuzIFxD4t qSJBqVZ2ixwmnLTldSFlbIC VfgDH1QSZqrUQmX7BlFAMyO KgwWKJqmcf0UtSnRb1pmEBb eTcyMFxwYXJkXHBsYWluXGZ qXkWjSF2kHTMFRlPvEV4WXS JBTCBWQUxWRSwgREVCUklER Y0DJoDbEB5MHKDLKZXRVlrb cGFyIEZJQlJJTiwgQUNVVEU qFR3YLWDTZOWPL9QBTKILG4 RQR8MMZYCRVtCaO0RMQ1bPT NDMEDiULx8tfAOiPLSXGJRS MSylF9OBTG8OBRGKJlGXGnR XJ9FHA6JBKS5BK8KHYPQSUg RAWS2AYL2ZJJTBWDZRSxSVB DNSUlVHM9kVD4phSVynTBCw W82TGoYFTQGXW08qJ0tPWWU YFZVSX0MVX0lYN2uQUUasS0 ERVIuKFoZLHmSJYSGCJE9SI cSCWJ7pZBNwfl19EDQ6GeRx t4N9RSS7DMPaKJMzv4kzWLR mbGFuZzEwMzNcZnRuYmpcdW OlMGXvHoDmt0zvd673pUFdj 5naKPMsMpW3vBHnRKLnvVEf J422BKQtFUyno8lsf8VhLJY jwBFhk8D5IEIEzcgybHm1dL joT07oe0Z8PzuyA5cwIPLpN LJcI9MuUE6dERMwIev4XBC3 ZUG8YDCsPFFfK3JwQP1lYVR fmMDzSAx2b4xcwUgrMIDmMG F3y2gwWOsrawTfAK4zdx8tu Pq4s7jbjbYwFQVgCWMzlQYY VDDgL7UvqMdmFm6dfUc2mYc aVvndQLL7Lnv0EO1ryw94dm e5sZwjKKXvtfpuZeW6ULqyW CCjgwpePOl2ISywNICzvDB6 NVBgwQOpV0FuTPClRD4tgxw 8WQM8QXngPRXrYqE4NVLpkS VlQYZcuTavKRyea085SDU0D dXwDU1sG5Pyr5A1sW1yeXWl QTZnjOSvTyNsZYUidj9ehOD dXBzkh1XpAMR4xaR3hKDcjI OtWIBbXaS3PGduSK0rpt33A ZPfIES2xo5olNWluJnxjoVo wUGoKBoiP9TuNMJgo535KFE mY3WqBZDjc5P6yqBwLkGzIA VxmKU8diU7JVTkED0uhqrql 6tsSWxcRPrvVGGvdhM4egS6 SKObpNGgX4JoeE8jLRWnAL9 pemlik2nvYLB4MPreEUQwIA G6GwQdWCEag2Esjfu9FcObt 2TmcAKnVKooJ88sf367WYTn zaYlO4dsuLRoowhlyGVnlto nJHrnzdZ4WLVfNVgassqwFB WhKGphF7tuAkNqOKFvwWxvF Fagc5RuDWUhLYBqZmQxrDRh RAUwHqh5DODruGCcHXPhStF xJ2pazetcAqOTQPCsd7bfK2 fpjWWKqSInO7QhKRxpcbJaD CgoXVvkAhTuETEmIY78AEK5 QRVwpl07 CPT Code(s) (test code v7bgaGAhNVWiaNT2MkWdUSU = 3357) fr1agc9IokPNvzWFrGVwvcP HbglKksp82xAX8gH43MO3hQ EPzVpL0YUJaynL3Uzv5WUKz HOKhaKFkQ405p9jxv7feveP ifAG7iVwiYRGducrzQjF0QH beDZOptngjGPx9DEubGUJxg PM3KDTnnOFwI8ZbRAAhOE3h rpy1OXF6ZAvtRRFlNjB9XWM bqVJvRQEncXxuXJopw867SG V8KyEuJMSlyxIpxIpzcP6qV wPlBAV7MRTjNHbbMOobLFCZ U7pbGAQ2 CLINICAL HISTORY (test d4kijKNlJDKljZJ3QaBxRIH code = 3356) mn1eyq9DwfHRlwVUlUQeepX WkrvKszi16uJR9lY79ZX5vT FFvZyP3PVBxsoP2Fbx5BGPm GNTvmVFoY737p1kwx7heisL cyUT3xNajYLGsovbtRbR7GO joTFKoehraTNj6IXxpNVGgs SX4JCItwXXzN3NjYHDmKN9m hph2ZBK7AJhgIRUjPtM8WED gpRZbEEPqaQlyGJvbb406AW T2EbMdDILvdnXkiGtjcB9dO gYgAOBDjqJoY2UlRRf7yTVk cGFyfQ== SPECIMEN SOURCE (test d7vfmVByKNIcbJP5UqBgLGR code = 3377) ah6uxy3DszFUvrZYzRIlcnJ CghyAbcg81kAK6iF11JU9hA TVxVrN1NPZguoJ2Alu8ZHBp IWPisGPzV839y8xkk4fesvU taEZ7hEzrQJYowhpiLpA9DO ciCOVwndfcAVk5XRieLILki PW6KPYupQRwU8StVBKkXE2f vgc6GOA4CSnqVECnOuB0JNH afNNwTISxxComJBrib791FM D8BlGwMLClbuTgoVzvpN5lO nMyMCBNaXRyYWwgdmFsdmVc cGFyfQ== GROSS DESCRIPTION w5ezpLJeSBTgaEAbLvCoMBI (test code = 3366) xNERiq2tpRTXfeEJrFyKfEc NcZnRuYmpcdWMxXGRlZmYwe 4rfa112qEIia3nfWWHiKaM3 pJZwEPNtrYViA908PQHfMKe mh5dcs0HeSXGoqUVbr4F3TG ZXbpcahIs4bQohH99st1C6L likP5xmQNSpWNOsQ7BdSO9q REFeKgx4IJL4KWV1KSTsOLW wV8KtSZ0vFHOgqVIfYPs5i9 cpaDwyDTBnGAD5g7fmOLxzp vDuMG3wsu9olPu5i7oarbNf ONBoJGXahZOWGIWjK1EnlCn cCe4spHp4yAtvVzprNFO0Qn o9IQ2jim85qls9zTmmIMWcp jkpCkB3NNvrRUQdjukjUXo5 MFxtYXJnbDcyMFxtYXJncjc yMFxtYXJndDcyMFxtYXJnYj jkVAmpUCUvSNE6MFxmi148Z BH5DIfoj1syz0egzNRmYlf9 GKLbTaTnDqprBNruj4Xab1q aDHHthx9yMFO4zYMifEvzf5 W9sJLvJQLeyLUgkkGrYAUqI kX7EVxuZZ2vjq39KYSbBTK3 tw9euQXplOexoaMmkPNgXSc wG0QbKKTmh833BRMaY5AkXJ Wvt9P4tjTlRzNzGALfpNH7q fE8YGPvHNn6sZOckzH5orFm iARtA0ldaV47DjCznQVuE1N yuN44SzAbgGFdG4QzkG06Dj ZbtOZjA5DqmU24QmUtgQFnJ MPdhRHtRa3yrIWpjAFqp5Wr wVClOLocQ89yd258CIBimfE yL8ipwSUgmjsnbZCbmwjiKN pbalU8PXCzFXOsVYipAZCeY GZzMjBcbGFuZzEwMzNcaGlj xHzkYIhmEpPaHJVdVVoaR1d cZjBcZnMyMCBBLiAgUmVjZW j0CUArrV1jWl0gbQJvvP0zy VIhSZbkXFC3xFNiZUGpLYYg NIZlPB61S5HisF7jj4KsWGJ hy30fCV9cNMHspIHbDHrlnp FsdmUgbWFzcyIgaXMgYSAxL uVhA23xzW5noXVpD2MfNQA1 IDAuMyBjbSBpbiBkaWFtZXR amiX4GZ2jdKdcjcV4mCDwxE TtWOpblCDoZDplCOM0Yx7ut VBcQIFexoR2r8MfHFopGGJp n8JifPFoWCJeEsleGDPlmCJ aQDBnrkDzzHkryO1wVsVsZy MyNFxwbGFpblxmMVxmczIwX QnjbaotJAAvAFfsU0ahHzBv EZTddVfrHMjvr2GjAWXtGKD vIpTwKGEqFCJdt7akTZ66WS xwbGFpblxmMFxmczIwXGxhb sadPGRkYTtaD7cuXrFkNGKd aHyvCFxxv1ObPQUlVODdLeE ccGFyfQ== MICROSCOPIC s9mnqALgEYHkwWW5LsVvQDI DESCRIPTION (test code cy5hsm5WchYUnbBNlUCstmI = 3371) UlapXugq11xHY0qN60IU0mY DBlCzC9ETWriwB3Avb9VCKj AASxbQNpE612h0ugv1sgioO gyGB6hNylTYJhjizuZhS6GN qgODBcuapuRKb1WTyiNZFgh VV5NAZvgFLeG2RyZSSuHN1r pqo5MEG7WTreLZBiLmB8EWS zbVNnVPQefZivLVxxn988SJ Y1ObMrBFEyasVafTssuG7nX nZsTXIBRZFuj5OrSWAtNYWm cn0= SPECIAL STUDIES (test g7oasNPyBVUlhSU6QkGhWVL code = 3376) rc8goj9VgwJBvtUJdNJfmpK TeunIakj10hTM1xI67ED6sN XEdNjV4MXVsfyO0Wra8ZZUo FWBumXTmK191HEThPSBteYe bclg1bA61SZQmzK0qkQAbMP syjxJdQHwuawIupkBiJlw4X AD1uIsmMVYulwqzIvO6YQry MLKzybhkIEq3CXskJPCkvTE 7UEJaoJAkD6RvIZStTA6mdw v1RLT2FGepGODpVwH6OQPzb XInGYMdzMcbTHbrh192IAS2 GsEmFGZsxoXlqScwtX5ySaT cZnMyMlxjZjEgVGhlIGludG VupZJcgMN8eQ2lEZ0bSUZxy CFzC9XuSXEugsCvfELvDBQ5 uTKovSBpTN1zSGvhtFMwq8w ft4FxQ2ceoUsdkPV5UJ9vTN PgPCWhJJkpq9JdfM5wZhcgT UFeH5IvOAPJD9WRPQBiZXQY Sm6MGzMOJsPpSqBDAd7xPSf NUywgQUZCXHBhclxwYXJkXG GdTJXWk451mm2dEMUvlLRfk yGOtDVfjH8jVSlnBRvoJFbz bUZjNSxzj3yfWRXzr5f8sTV wJPCldyKuq7haUBcytwZdSB IezBQeeGZwLWQub27mRSnxa RqfnZpaRRYpi3NeoMeux5Wz CfOwWZpgf3ZaO20jhZUvnUT djLqcGNKscnUqMDWma23ll1 ofCOCbFdM4hLZjsYB8tPLmc OJaz5SznNocGTPle1gqSRYf zu6eyhktzDMah3YclH1cnkv fXBipaGAhpgTxTTHoj6m8gY IzWLCrFOSdRDxzoOt5QLGwn 941ec4pwtM1tIDmKXP8ZAfa YWJsZSBhcmUgZXZhbHVhdGV hMDPlfsCnJSDszgQSvN44zs 8zwFT7i0OgLG6wl7LkuZN2A WNobmljYWwgdGVzdGluZyB3 VAJbnTIiVl1ozDYdXIA4YWY nfBbdscGNuE4gNTGoXJy9VO QjEuLmDyavtuIDZQTbZ6GqK QUlcxUduyimPJE7uS9nu2f2 MRarYn7tZTOrpqmll4hvtjW bsYKak7SuFRXvbjRms5NfFQ AaskXclKLyTYHygvFmbw8oh cJpXHYlUQWzC5HorzpzlWcs ydT5PUUxGQMveBArtEdqOJJ pUGu6YCanftGsk1SgPhXvqt ZfpYAwxoVmUM8aSMHekHVaj tAqCYO9HXZgSCSNQoDkJHTq c5QqDI2gOCUhkXnjPJLcfZ3 kv7UeYOUyy36oYTUqSZDDTR EgaGFzIGRldGVybWluZWQgd NrhlIVdqBZxAMKyIJRmDP9v JEYfvvYphNJdp2MyeVKghzP au6PxpoUaNZCrVGU7ErMYlV JyzUWfsROoqvC0u4PoJJQli tNezLegzAXgmJQwxLAfv4Kp bo2zROAcv3thkIhoXI7ziLN iZSByZWdhcmRlZCBhcyBpbn Bid5EpQ5K6yL5fHBcae8AbW g6bJDRer1GwyqJnMaWGsVcv MIruIq4yABHtfdwvlNPtT9B ydGlmaWVkIHVuZGVyIHRoZS DCqTpzzQPisPIVZYYpvfP2j 9H2AMlytGJvwpLtFM76EFXh OP8lgJBfoSCtm3MwALy5DIR oF2bSMZ59YGqyZSFfuBLmqS jroYUkCAXqBGOfunEmpw9ti UhbmSWar75haDY5pII3HFVv pV9mU2KaCIisQo7wANCgcjt xfVFbkCjoFf2ypKEdhZ== Gross assessment was [facility] performed at ([facility], code = 2777) Department of Pathology, [address] [place] [address], Technical component [facility] was performed at ([facility], code = 2778) Department of Pathology, [address] [place], [place] [address], Professional component [facility] was performed at ([facility], code = 2779) Department of Pathology, [address] [place] [address], [facility] [id number] 15:29:08 Test Item Value Reference Range Interpretation Comments Case Report (test code Surgical Pathology = 104) Report Case: [id number] Authorizing Provider: Logan Russo MD Collected: 06/18/2021 11:41 AM Ordering Location: [facility] Received: 06/19/2021 03:44 PM PERIOPERATIVE SERVICES Pathologist: Tom Paige MD Specimen: Mass, MITRAL VALVE MASS- for MICROBIOLOGY then pls send to Pathology DIAGNOSIS (test code = [id number] 3220) uZzEwMzNcZnRuYmpcdWMxIH tccnRmMVxlcGljOTYwMVxhb oWeCLDbjGBlF1AdtadeARav VZ3zMZ1pwTaneRCvjELeCOR wPbZja5lte075hYUob0upWV MVdxhraGu9pNebC60bq5U9D giwK84gfJAiTXF2URIfTYUq hHEuIPKqBDR1TDQwnDAeS2u gYIIsLU9kvymnRImnCGnuRP MpgQY6CAZpwENcA3OfCGKrQ EspIZTwqma4SsKqQr8awAWs eTcyMFxwYXJkXHBsYWluXGZ eUtXpWF4sXSCHVeLdUB1ZUX JBTCBWQUxWRSwgREVCUklER L7CUbPuTU5VJWUFSCZVQvcd cGFyIEZJQlJJTiwgQUNVVEU lQK9LZKAVKXGCD0QTUTJDP9 YEF3FVVOQZVmKlO9KPB5qOA NPWJYpLVu2gnWEkXVMRVTHT OPbmC2IOFL1SDTRYRuFESfU VP2DBA7IOGN7FF0FMFGCOGl FMDO5NQZ1CUGSYKGJDHcBKQ ZHQCoJSU7bHW1viDXtaZQAj J73OThEUGFZPU50wY5eJAAU RHSFRB6ZGG4gPU1aGUNneM9 MWKJaNMnWCOxWPHPIVGI3UP fGJGL5nXFNkwc79DAV9BaPu n2H5IEY1CJAlHSBjq6awZDY mbGFuZzEwMzNcZnRuYmpcdW AtMQAmEkDpn0nkz321lQCiw 0lyGXPxZaU6qVGjHSCcpYPr I441RFVpPZhcq0qlv0GmYLL fjISlf8X9PJUOcytmhRt0gI fxF23lb3E6FrzoD4rtLTAdF VHgS3YySV6hDGJcZfl0HUL5 TEC5KZBuFJAvE7LjZA7uUNF okOXrDTw4q2teeLxwLKQnPU I9d0njIRbxuaJfTF4jyb5sd Nb4e9qdciWyTMNwTUXfkSBU UPFwL5HwdTwzHl3heHb1xIl jVlsmSLV0Cjw1NA5eyn80im z7aMgqUYVrrfdtZfE9UOkbZ RFueajhIQd7RPjpSURqfWJ1 BLGsjJKdM2UiUBEhDZ9bfai 0XZO1OPcpASQtXlF7LDFpyJ KoRDCknGbeYCqoo148PSS6M bWzWU1wQ2Yse2Q3mF6eoKAd QCRkoRSpQzHiMXDbsd3evRY uLCpfn8RiSGW2yiL7tYQciA YkVAMyWdE4DIgwXH9rxv32I LJlJVP8fr3qwYHgnKccyvYc yYRoEWmeF7OjIMTqj161FAY hK2HsPASql2G9haRjFgLhEH SjsVS8niJ4GLAxPG4udaawf 4wmSXreENsoYSJnxzH3yrN0 TYVqbTCtK0IqnP1sNATeCR1 ohxziw7szWJN7SZesUSHzZW J5LkOnVACow0Dtclq3DmIwd 3KqgGYtXWvuI30st430JMMb tpUlX5zpuCCstunclUJouzg xKSudvbY3FPIjBIxnvvaaET DyWYcxR9lyJlXkDVLehInzL Fwut8SbRWLuXBHfRbPmwZHh MPBtXla2KXKvwNGtAAGbUpZ qN1efzllhGaBZLKAfo4xnR6 fqeLGShUSaR0LvAHescfGaZ McjFXbpVpNiIGKgED30LHM1 BOEign20 CPT Code(s) (test code f6yqgKUfCTUpxZR9MmRbXNY = 3357) vl8dmd6SwiEFsmHWpCYqzvU VlwaSpiq72iOS1pH14EB8wE DIhHuJ1CJCcmmZ5Haa1MLSw ORLmtPRyG351e2vxt0dhvkW ooNM9pRtdVXWwtxqcVqA5YK mgTIOospqiXSg4UYjoIXUmr HP6XVQvkHBaS1VeAQSpOF6x bhy0VRG3RUoiMFBsGmW7XNM vlJYiOTTtsHhjFXncs546TX P7GuZoZLMrifHmrFeltP0oS sMsWRT4VPYrOJfcTDldRQIQ K0gsSRD2 CLINICAL HISTORY (test t1jgpGDzNYHjwAN1MxQuRFU code = 3356) mp0vxr5DbpJQxrSPtPXftrW SjgpScmv30iJU5mX91YB1cQ SLrKvR0UXHubkK4Oju1WGEn IRUnrBYbU435v9agp6equfT heBF0kHyfJZCnvaccEvG3JN vkVLZvnjyoECd8NTanXGCcj LO2SNHgjSRdK7JbDGVoAH3o bkn2CEP2CVxlVMUhJzN7RXU knICuAHZxiGihYGaif258US A7LrGyBJTitgDheSsjwP9cN eRkBLXBvlDvE0ZiWLe9uMBi cGFyfQ== SPECIMEN SOURCE (test z6iwxVSzLFXyeKY8KwBrYEC code = 3377) kr0qwc7SwsUGseAEcNAempF FeqyNvev60qIL8cG03KB0cU OFvHmC0WGYfplM9Vzx7OUGr XOUdpDUkV164n2flq0pljsR lgKO6yJxcUUBetulnQaX8JN exYZIveonxNWv3DSqxIOIfj GR1ZEClsCKvW5CgKCXfEQ9p etv0PTB9WZgpMYOtVcL9UVG pxCDuBEIomFfxQWrus603IE Z6KcHzCXNkggCfoOuyqU3rP nMyMCBNaXRyYWwgdmFsdmVc cGFyfQ== GROSS DESCRIPTION b0ngxTMyWMFqqIExTiYvKHY (test code = 3366) vNSMgj1zoDUWhxHYgAiOjOc NcZnRuYmpcdWMxXGRlZmYwe 0rum329cWBcn6zxDSZfUiX8 yKUoOUDhnRIqA987OVSrCQg sv4rpo3ClTBEgnFWls3S5HX EKbimmvQt1bJevP48au7C1U ggqF9cbYBUbCQCmK5AyRZ8s GRFcBzi3EER8XPS4YAJjWLS vW5WoSD7lPPPzmVIoYGx2b5 xiwWqeWWKlCTN6t7lcSPaey xTtOY3hjl6goXu7c3tjmmZm LWQmNCLrhVTFWSRmJ9YqiFd eEg7niPz0lBsmEchfOMG1Ti g9SA6lak16nbp2iTkpXFMur jmgKlH3QXjyOIZmiznxSSv0 MFxtYXJnbDcyMFxtYXJncjc yMFxtYXJndDcyMFxtYXJnYj ptCXfhYSItFXQ5WOfxj310I NT0GHvth3zwq4aujPLaPri3 MLIvHkWfFjcuXEsyk2Izs5y fEKHhan2aABB2dAQuhWfxl9 H8qCHnTKHmoTMazdUuSGUdE cT8KNljYF0yap89IVIwJQY4 cp5mdJOgkIelbjJjeGKwWCj aD7VePJIpc387LYSoR9XtIC Ezy6B7nrMuNtUwDXLaiJJ7o qG4NZFcIFi4xCDhehQ9ufKn uLFbX2gmnO58RcLycTJwE5Q vgE86UnDtoCJaQ1CupV27Qs AfvYUoW9RmzU64GaDfnIZnA FTiuDNaZy9lyIUdrIXds7Qq qTHeJOovA61bt837CFEdvaL iJ0zzgXYuhduhbKSkcgxrXN clhtD1UNWmJATgQBxuYTVeQ GZzMjBcbGFuZzEwMzNcaGlj vUfpISlvVhUhOSIsOTcaC8p cZjBcZnMyMCBBLiAgUmVjZW p1PVGlrW0fAl6tdHXmzP2gs AIeVQhzPSB5gCQhUXOrINOt CKTsEH09T6CboC9xj1DlUZI pg35rSQ6uLPPbjDPlKXhvgr FsdmUgbWFzcyIgaXMgYSAxL rTdC07jgS7omEYuJ3JaZRH2 IDAuMyBjbSBpbiBkaWFtZXR vnaC6ZY3rdWcynqJ0jHPvxE VlECxceJAmRVrhEIC6Yi3sh ZNwPBZrquA6e4DfHOneVLGv n0GzlNZbPFUpTwesIAFxvDS tZAVdyfGayJhceY0pAbRlAg MyNFxwbGFpblxmMVxmczIwX IklsmufOVLtCOfiX0wrCiKc QLKblYyaNIlxo6OeIMDhXHE rIhNlLVXlFMAot5zhFX16PS xwbGFpblxmMFxmczIwXGxhb cfsECTmAGqrA2jcNtCcECAh xKjuUVftw2NuWUHxBRMpPmJ ccGFyfQ== MICROSCOPIC p3uoiCSuVHKgtXG1YlAgQYK DESCRIPTION (test code fc5osi1QvyRHjtHEuZDdgeR = 3371) ZpkqYrsl20vVK9hF92OO9cU IHlKfL0VJCgrtU9Uri3FYRy GTLhbQEuX774v1xqt7gsiuW qsEP1nFquQDCrjbiuSzF4PK jkSLZyjigmBFn8FKrhOXCpx RF4ZEBhyDZaC4KtTHBwLE1e ffv8QKH0NVntKTXdMwM1XVQ tvBLsTEWdfFukVLipd095HY A3SeTjNGBnjnOzwCyitM7qL xOgOYVSKMLyx0PzYHBbCWXd cn0= SPECIAL STUDIES (test h1ygaXBhGZQfzVR6LwPtYJO code = 3376) pn2zlp0MuyCHurERmOInqsJ RkhmZlto13hGN7jQ65XE1yD RMwMiN0APRdciQ4Bxi5DMOp HWJhbQRhT283HZAtIVBwxTj uscq0nU05BIXndV6lgEIbLB tjkoGdQYowurXiqkZeYdr5N WZ5qZekALCesufcWdC1HZsb WTPidlmnOWl1EBdaJGHmgZK 6QKTmyTTfG8DfBIOeRH8qrg m4LBA3JLytKRUnCyH6KBQns WPnMKUxoKzaXUvkb525UMT4 TqVgOZSqzrSnhVtceV7dLyT cZnMyMlxjZjEgVGhlIGludG RzhIXkjHU1lA6pOM9mELVsm PSqM9GfOQFlivXhsJScKEK8 kAVlaHLoHA1eRWidwGWps3o zf1YaG3imdLhbcMN9GN3gXR LmYQYhIMeju9CxcE4gZtfiK DUeZ6LqTNMFQ5XZYGDxIIHN Oe3UCeFQBtTbOvDAWw5cWSn NUywgQUZCXHBhclxwYXJkXG JfCWYJl510kw8aEPVtaMGzc cYLgSCnfJ4eZIlcWBqrGZpc tHKeNJvtb6pxDCAhz6n2wLK uRYQranTjc4igBSbqpyNsUT FfgIYurBCeAJUjf55zWDuvs ComuIdgPFOib6LzgRnqb6Be FsLuQSulu2XgH29bvHTukXA twXnsLVTeejSqVADqz45zd1 jtWSItZyZ8uWOnuUI2oNEhz PJff7ZboNkhOAUgf1zrDQFr md9mbroqdJLgs7VloQ2fomt mVCozkXHervVwJZHkx9s5tS IrZHFkBFZvWFgxkEz6RCQft 342lx0lorV4mUVnXIX7ENrk YWJsZSBhcmUgZXZhbHVhdGV mRFDellSnXAPwhnPAmC88pz 7zyUJ1t1CwTH7oi2CdeNU2N WNobmljYWwgdGVzdGluZyB3 ATEtsPUkMj3qrGDtQBN3ARL nzQlkwaOWkQ3eSEIkQSi9OK SkJtGcMirdpbVWRPCvH0RqA ANnvzDwqvhvBUG9xX9dl3w1 WBoxGj5sQEQifpnla6ixhjO kkJLnq9XkGCLtlfRoj3HdOO OdibNcyHDhSBTwwpNmdh7ki pUnVRAiKTEzK5SrvchlsXlw naJ4HRWiTVShpTAuuIawERX uNYm9GTeistOdg8QwQcLrbn InjQPizpEiFP7bKSJqtWYno fQkHBM7QWViSXLAZaNpSWGm h2GsKI7tEWRtyCfxBEMatP7 lu8OcGATly08lJXInBZIILD EgaGFzIGRldGVybWluZWQgd RtuvOQdxVXqYOIlZLXfRV1z TNZabiHfeAWik9BexGMtqjJ oc9XpyoPdGNXoVKH2IvYAwC IupLSiaYOkmtV4o5NaKOHzr aLbxActbRReaJBfeFNzz1We ug3gTNFkd5nvqWvvUQ4qePW iZSByZWdhcmRlZCBhcyBpbn Igq6TaI4U7wO8lQQdhf7WyG f2nMFNao1NhokAbKbTZsDkk CItcYd4rISCgnejeuGDiY4S ydGlmaWVkIHVuZGVyIHRoZS XIcXcarAMowCMCPIWewkK8h 7F1TJcirMWkuzFbLF77NKBa WW6okSLizIJyn1QpGOj3JEI xS9iFZP46BMpsPEBjnMSrlX aamWMxEZCrCSOhkmOwtk3sy TnfzJRjf37avPF7hUB1GQKx mU8rI5TrJVcyCb9eJKVnvqm qsIOgdGpbIt0rrVIljU== Gross assessment was [facility] performed at ([facility], code = 2777) Department of Pathology, [address] [place] [address], Technical component [facility] was performed at ([facility], code = 2778) Department of Pathology, [address] [place], [place] [address], Professional component [facility] was performed at ([facility], code = 2779) Department of Pathology, [address] [place], [place] [address], [facility] [id number] 15:29:08 Test Item Value Reference Range Interpretation Comments Case Report (test code Surgical Pathology = 104) Report Case: [id number] Authorizing Provider: Logan Russo MD Collected: 06/18/2021 11:41 AM Ordering Location: [facility] Received: 06/19/2021 03:44 PM PERIOPERATIVE SERVICES Pathologist: Tom Paige MD Specimen: Mass, MITRAL VALVE MASS- for MICROBIOLOGY then pls send to Pathology DIAGNOSIS (test code = [id number] 3220) uZzEwMzNcZnRuYmpcdWMxIH tccnRmMVxlcGljOTYwMVxhb oVpHLPgjLXqO9SojojrWBtf BC3fCA3xiUtthVKfzBKtYJX yElRiz1tcy179pURwp0tvUL QDjpcccYj4gYpzY85db0F6V kduH97reSWfSLU1PXUqWWLw mFLrZLZdVGZ6ZXKpdVZaW9t mZJKsUM2eviuxZDgoZYpdCH HndTH4AHWebJKoL8TfVAErS VbcDXQewvz6OlNjAm1umVUv eTcyMFxwYXJkXHBsYWluXGZ bKcQqEM4mKLYRDtGuEL0XFZ JBTCBWQUxWRSwgREVCUklER I9FTrFvDY2AVBUYKDGKIohp cGFyIEZJQlJJTiwgQUNVVEU iNH0JYKXZROFDL3NMHGCMI7 QNO4RGOPLAVbNdT8YVJ9rNA RFQTNoTCs1nhINlXOLTRKRJ YZjeV9DUGA9HWWZOCdCTZrR NS7RTA9ITNT3CX6IWAFDHTb LLPZ4TTB5LHOPYQWFYGjEVC ICXYeSPI2sFJ9rfKBvfTPZg I25GQxJBBBELV82iB8sAJMZ DPRRBL1OQL0gJS9fFULsbF2 JRDKpTOoTHKsOELXXXQN9CX tIPOV9sTGInur96DPO3JzCz z9T6TTH5XLYmKOXpq8liMZD mbGFuZzEwMzNcZnRuYmpcdW KjBQAuXxFyc1wjr836dVTot 8lcKTGrYvN5nFRjVEOjaIOp D318EYJtERhrf9qul2WgHOZ xrZDpw3W0MEDDlfqerEs0oY bbE06it1Z7ZlfaT5vaRFQvN JPaN8JjXV6yAPCjQak9MFP2 GKZ0BVRnLJVbJ0WwAC6vPFV qzCAyNQr6b4lgbHuxUXJuMW P1i3twDTnampWxVB6rkd4qz Ix8g4yrsuPaFUWlHMStpNNN QAAbI2EzpAahSp1kdEl0fFq rUspxFES9Wge0SA9xvm09gw b3wUxoPYNhsiyoSeI0QSayP VIfdxabUUj9ARwyUVIedFB8 UYDzlTNvU9LlRINcHC0icfe 3SMC3LKmnODExIbS5DBAzwB AmVVMjxVwyHEjfg851DBH9E oZgDK6qA6Aer0Z2sT6lxSTr APWqbXJsNpXdVZGviy4cqEV uJIgqq3SxIHU3pwK8jFNuyT TtTWYgMwF8PSajGB2sne77A KPaDZS8jh7ekPGvtQshodRc nUMcIZciI5DtBKCpj166CSE lD0SaTWPwb4K7ukGyXmKtEZ WubJU0pgP6DJGqFN4wutddg 6vbXJvwWNizZDScrxO9xsA5 BCZblBZgM1FuqX8rGQGpMO4 phnrot8opGPF0JQmqFBDjAC P0SyVuCFDrq5Qvxla8KaXwy 3ZciZMmBXovS57nv654ICSg itZxD1pwvWUejxljiGVevrw kGTmgytV1QZTvBCqnvilcSK ZeSFaeS6aoEpHsXRBszDllR Mzfg4IwAZBcLWKxSlIdwTXf CEIlMmm9QQWorHHrZYUmPkR jM9gwuvwnCbOFOGIsh3qyM5 dcuQSOhVBbW2UkTPxwgaLqR SpmNWuhEtFeCDPtNY97WTZ0 PVXmsz64 CPT Code(s) (test code h1thkYGmRRPpmBN6YnZiLAZ = 3357) aj5zpu8DsrATzeHYvUDbajG PsatYiuy71fRH1xC48OA8qE BJvHbV5QOGedpR6Foa6IIUv COJkmCXpD034s1wna0tqlfT wmLM6aHibLSAeausnNdD6LS lsSORzgywcOJv0NRduBZHpb QP4AVTstPSfP5RpJYLxSO0u jgc7HES6GLwkMVUsUyS1SHO zkEFiWGRlgHcoGIyva053WG N9NvKvWXGpuuXehYtioK2eU eCfOBY9BYIkNJnjQOqwZLFE V1hxWRC0 CLINICAL HISTORY (test h9iqcTCmSVHswHF1QpUyTMT code = 3356) cu5baq1KhnGPlrRNbDZwabN GjixFxng11lIS5kT21UY6kA OGiZdO1XPTwnnD5Zgs0UFJp LPHgkBMjC099f4lvo1ksgfC uyYT5qPszPMXghilcFdS9DD hwGXIyicryLDw3KYuwDNXwb DF1JHAoiGGbB6BvSOBkVC0p vrb1FMR0KMwmWZQbNkS2INZ spLNlZREekBxwSXtwg207DA G1DkRgIILspdOxsPpbfN0sL nDvYSEJraHnP4KwGZw3tPNi cGFyfQ== SPECIMEN SOURCE (test g9dvpUTpODLvmEA4TvWaFVL code = 3377) xy6ebz0IiyNBroPOpPNqtfX YnusCcqr07aHU5kU24QD6bN KXlQnL6XCBtktC3Jqw2DPIx AYAlrVQrA788p2vrv9iyvyE pcBO8oJgvANVxvwcwPcP1ZZ igEMGoxburFCi5QLyuXYIup PV6WIAsqWNmU5HcUKVpQG2g ixc3SDW1PRwzILEcYxE0JYE vrWAuRMRctFikGTyny673RY Q6RlEbDTUmtxCrfUzoaZ2bO nMyMCBNaXRyYWwgdmFsdmVc cGFyfQ== GROSS DESCRIPTION e8fllXCyEBWwfWVkAdZwFVI (test code = 3366) gFRIoh7gcDJQztIMsDpHpAd NcZnRuYmpcdWMxXGRlZmYwe 9hpc880pTMye8znBQBiFmP3 fLEpTTDldZDxW165PPDhMJe uo7zmd3NyRZXtzMPll0X1VP YIdtcouUx0tXawZ11es1S7E fsoM0thBGByVRReW7DuMY0u OFOcVhe2TVJ7MEE1PRAtAAT rJ6OgUB2lVTCwrPLbALd7n8 ayfHhiCHDzDFP6d6syQSvhk xEbLQ6erw2vrJx0v7vosvOm ANAkHJEmlTBVKCRtS5EpdCq jUp5alFh5bMxfYpnsMGL4Vw x2AD4vxl13zgb7qVfoDOZgw rfxAfD5OPmeSQWizgpmATa0 MFxtYXJnbDcyMFxtYXJncjc yMFxtYXJndDcyMFxtYXJnYj olGBkdCWGbUBD7GWgfu999X YK5YNzlw7dty7zhuIMnOll5 NJWnBfAdVtttUHfrf9Iri7r pGBYymy7rYZR7lLOlxWmli0 G9bZOtIZOtbRRpuyMdOCRfV uW0WEyfXV4wcr67WZQbGYT5 jc3veQCpiZfvjuMdpPMyZXl dS1SpVZDnx308IAPiE0HfPY Eht0E8puVxZxIyUXNnmUZ3u zN9POFpKLy5fKFodhB2deXo uEFkF2zkxQ62AsQlhEMtX8Q bzJ76OcRsfEZvM8XirT74Rw EtpHZfQ1WexE54DgUupAGfU LOkzNYjPx8ghUHwbOPml7Hr cHBmZBqtN89we501ISGaenW dQ6nqaXCphhzlvBHlvalrFD bgehQ2GANnKLAuHRuaFJNbZ GZzMjBcbGFuZzEwMzNcaGlj dXpmBGphQrPfEVWbTXweP5x cZjBcZnMyMCBBLiAgUmVjZW n3IBSbcI1lRd3kcHHfoY2md BGdZHwcMCF6lTIgDCXjJJDu VDJhGG92Z9PtdJ9dk2QpAMW in80rSU4nTNBkcUFoQJujdx FsdmUgbWFzcyIgaXMgYSAxL uBjH85bsR9yyOApQ2VxXJG1 IDAuMyBjbSBpbiBkaWFtZXR jnzY8DS5hiMrjfcP0oUPjfU GsOYbikGZcGIgvLUH8Is0nq IEbDNPavkQ3a3KmFXwiVCSr g8AtlKNxBJMnYgcgEIYfrRN rRKVvdvOirFaagT7bUnLuHe MyNFxwbGFpblxmMVxmczIwX RgmqduaNJMpRAfzQ7tzZhDx KVGcrHebPPxyb9UqBDDyNPV lReXoGOFsDNPoa7omIM91UO xwbGFpblxmMFxmczIwXGxhb afoABPxWDusO8ejOxDkTZNb gPqiUWlvv3ZvLJMcSMYyOaJ ccGFyfQ== MICROSCOPIC j0bfgMZkIDYmaWO8YnOgHUZ DESCRIPTION (test code ci8naw6RszGOrlGRvBVcyuF = 3371) ErwdVcwd33wPN9uA72MP8bE BDoSlR2SONqbxM1Tcu4WQQq UYAukSTeW872e8fnf6dosrE tyDF6cKzjBZOzkbdtAzD9JQ ypCSVeriilJBn5AJovCXZyw CS3NAZueEUfJ9GjAGPiCB5a bby7ZZK7KEcfKAFePsK2UFQ ecOJcQYYxkMiaLEvor361BE P3ZiTvHZLirpIbwVdjoL9kC lKzGKOMHUEru6YjLFFoUBHp cn0= SPECIAL STUDIES (test n2oraBIzCJRuzHB7HbZsXRR code = 3376) ao8jow2SyhQLtkMCeYBvbnY UkgcRznh13eAM3tT39OC5gB PPeBpZ4EWXqtgH8Zth5GVOd JAQqpDNdP430PLVeCXTheTl vbkk7iX95KTLxzG0spXEkVQ xfhpDlDPtrguZkikMzYsj8I XQ8cNaaXJVcmgjdTsH0JXgz AHPaiyikLRh9LWsmKABenDI 3OOHvwAMwU1NkVUQvRN8lru j1YSF0RYcpWRQoLiF0TQFcc XOsMBXmoZcvVRydt259ZKS9 QxXrZCCviuBvmHzkuN9cIfI cZnMyMlxjZjEgVGhlIGludG QpqPWtkXW9bZ2iMQ2lXXUsl HArI2VwMXXigfCjdJRoVXW2 bHXumEOzRQ9kPCbhuRRuc1q zk8ItX6xjxBvlqMS0WY8dFW LaGCZvTJpms0TkjY8kFocyK RDpG1AxSXVKS6AUVASsNVJO Hw9JPfBIQzHcZmBDXr4yPLr NUywgQUZCXHBhclxwYXJkXG BxZDFMz179kx1tMWCsdLXig eWSzYIjfD4eDEwgUJuwGNul vFMzFAodn6vmUVVxd7n7fON wABItpzYuq5meIAfesrRbVW EqlRBnfTRiYPIpm19kTFcyh WfewChnCIMnt8BhoVvdc9Yk HrMfLHldj4IzK31lpOOjlYN fqAzsJDSrpmAaJJTwc66an2 hzWZCoIqF7wJGmnFF5kJAdy VCnc8KkyPzsNKMum1ezQQFx uc3jqridxHAaq5UemO6hhvz qOCwprWQeuxNxLHVdh4d7iL DdGNNqQNWeRCelvMn5KUApa 788bc7prpT8oGXkRBR3HGtc YWJsZSBhcmUgZXZhbHVhdGV xDEHvqpZzGOVpkoIZdJ40gw 6quRW6d7GaTD5us9LvxCW9A WNobmljYWwgdGVzdGluZyB3 NMWfnMEeKt1plYAdIUL6EIL wdTvfbmINoC8dUPEaEPd3OZ UrPlXyFoctutBLBKQoB7FwT MFzcnEukestFWX3oK6cs1f9 NWqoXx3mZXDnqzxde0gwnmI mbBDoc3QyWDCpppPrt9PxVC CojeQzdQNlSJIwlwWsnr4jz lHgXELrWVKmJ2MaxsxnvSpg pkG9PDRdVBSrfIRydFkdUZW xLWh3LGcyrhOly5KsUdGvbt RtgLWguaZkUR2bPYPouLRzy nQoSDY4YBBnXJZBUeXgUDUg r6OwAZ7lJVOgqMiwMGJrfP1 xq1WsNGQhf59kCXTeDSNFVC EgaGFzIGRldGVybWluZWQgd ApylJQbwASrQDKmZKThGI3l TDSsdoEosYZbn9WtjMTuicK wq9SvcvIlBTNoPHM0DuFKkP VtdBZocPHqveS0k0SvQMArw kNijTlvxNPaxENjwRYub1Zs ge5dEZBsw0zdnXfhWF1imSQ iZSByZWdhcmRlZCBhcyBpbn Mdf8EzX1B9bB6wHMcno6VoI w3eSMLou0XrnsKgQnUYjZvp NMntXr7sPODruhtuuARzU2H ydGlmaWVkIHVuZGVyIHRoZS VGxSvggDJedDRGLTCikoO8y 9B5VNlpdWTrwaLmXD47IVQn ML7gpQKegDQpc9RrNEg5GZQ dS7nOWS90MCmiUCBgnHHkqM lbgTSeMGYyXGIncbXuae4xa CgreQKda96vvMO1gDY8VBBr sT1tN3PmINwsXf6bKSGmrcn kyFJjxXpiCd6yqJYilH== Gross assessment was [facility] performed at ([facility], code = 2777) Department of Pathology, [address] [place] [address], Technical component [facility] was performed at ([facility], code = 2778) Department of Pathology, [address] [place], [place] [address], Professional component [facility] was performed at ([facility], code = 2779) Department of Pathology, [address] [place], [place] [address], [facility] [id number] 15:29:08 Test Item Value Reference Range Interpretation Comments Case Report (test code Surgical Pathology = 104) Report Case: [id number] Authorizing Provider: Logan Russo MD Collected: 06/18/2021 11:41 AM Ordering Location: [facility] Received: 06/19/2021 03:44 PM PERIOPERATIVE SERVICES Pathologist: Tom Paige MD Specimen: Mass, MITRAL VALVE MASS- for MICROBIOLOGY then pls send to Pathology DIAGNOSIS (test code = [id number] 3220) uZzEwMzNcZnRuYmpcdWMxIH tccnRmMVxlcGljOTYwMVxhb nNgYHErxGQtO6KzrvioTHtu WD9iEE6rpMrvzWZegVKjPXN iWjRaq6lxy251jQKbx4ocYC WZkmwfyGq8sRacO33eo4Q4R fmgK79pgJNfAAI3XSBiTKJx eSOdMMBkELO8ILFuqNAcI7w mLONnPI2tihkiDLiyWRksBU RuqSZ1FTLquGYnH1UxONBxY CpoTZBdrqf9UsImKy5gaILc eTcyMFxwYXJkXHBsYWluXGZ cFgRoAC0lGRLRHqWjTG9FLM JBTCBWQUxWRSwgREVCUklER A0MRfWtOJ7ZFXRMHGIYAmjj cGFyIEZJQlJJTiwgQUNVVEU rNO7DIPLIDJLXI5VOWTOUO3 QOR0MXCYAKJzBeM4GJM6bQB OARIRySKp5bhRZxCOPVYOGF OWtbN6YZLJ4JHALJKtBAWfH WS6PVI0GLWK3HK5PWIAOQNa NNIU4TLG3OXVSZFBUWHkKCF MSTSgTCG3zVH1arPXkpIGKh B62PYzHBQAXRT65hY4eKSKL REMBMD1ZOO0zRD6sYVDrcG5 JXYSwUKsDWCoNMCHUGAM6FQ vVNGO2eLONcoq35PVY8OrCi f8R4GBG7ZDPoRWJmi4chSGG mbGFuZzEwMzNcZnRuYmpcdW LgMFEqMjSig7pxx264eBPdp 2ndJLMjDaK3kIJsQEYwiYMw G830SWKvUKylv5ekr5IgFUN tyDTqo7R6KIVWxygtyGs2hR umP60zd1M2RxhzX9vvDUGkV VJtN2EvIW1sOCDgJli6LJZ6 TPO7XGKaHDSkM7GcMO0uELJ yrZBkEOu1h3ktvSgsOMWnSP P2j8cpWShlanXmRW6lbg1yw Gy5p8xvsdKtEFIgSSWbtSIT CWIfL7IqvAdyAu0ovVj6kQg uLgflFLB3Tel3OL6rpz90vc m6oHbnFYDsciaaRvX2YXmgL NOjlhwlZBe1PBmxCOYlrHT5 HYMnfBBlC4GlUHHeGB9qsph 4KNB5WBjiRBOjXfK8CNPhlK HqBIVkqPpwAUuzh551QFG2H zSpNW8zV2Bwb3O5bT4alOHa BYUhmHZhZeDdSMLgou0udPQ kXVrbv7LcEZZ6wpY3cDXbjG WvHEMyQyQ5KBzvNS7grx65I EHkDOP6xr9ieRUzpQurvaPx vDNwVQoeZ9SaFHUva168GTW rD2BwHMEjq0R4ebCxYqPeTC EmcXE8ekP7PNDyEV3upkaiz 5stHFiqAUgfJGHndnR9ziZ6 YXRgxHJrE4EguS1mPVLsTT1 inirbo9udGTW7WTlqLKWoZR V7WmQvHECge9Pjaip2ElFqv 4DzxOIyUEmrZ20kq189MNUj pqTwQ2aebZEyohqpqRNszzu aGZhqhzU9TWDzLBvelvyeMR TcIJklY2isNtLbNBTgbRqmM Pzbh6KlTFBmWPBhPlZvvARx OIYhBmu0DWUqqCTfGTPpTqA gI6ixwvumUhSTFDHld9dkP6 rnkZLVaWLjE4JwRNktqsDuT FdiYTpnFaNhJRXiAT38HDA7 MCQoty99 CPT Code(s) (test code g1rfoCAhDQCunCQ0PrCnEJO = 3357) ub2kxz1DqcDQsmWLtFQchdD YjsmJczw18pBF0sX33ER8dJ TKwOaL6BYIhtjN9Dzz4PSQs SBVwvBRkT456m2ubt1gobwH chUU3yOmvYIWekbwlVsO6ST dsIPTjnyjbRMd2SJpnURDvp WI3TQDlpNUpS6VuRNSsUM9a jly4AMW4NRvaBRDoYwY5RPA pyTSkFCOmyUlsLVbhy588MT K8RtKgUSRaapZpvYpazX5sW gLiMJW1TWApIMooZJuaAJSM J8ynCZK0 CLINICAL HISTORY (test g0nlsMAqJYOwqHJ6WgGmXJK code = 3356) gr2cxy1QklJCbcLXaKViuqL DxrvRjsu92zUT9lU71VI1fF TQrIiA8BSDnjkK5Sse2NPFh YMGhjGOiL613p9xnw7udioW kbFH8dOcyOAXyjdqnCeI5OE lcYMUorjkhNJt4FGtxQCEae LZ5JXFvvFSiF2PxXFUfNS1f pxt0XEL6ESwyATWeXsE8RKM rgEBdVFPaeWfgBKwmn232BU J0GwMtPYIrefTkvBfcqE6rG sWbTHAUviLvU3TzYPa7cHDd cGFyfQ== SPECIMEN SOURCE (test e2dnvWKeKRNyaUD5ZcKuBSJ code = 3377) bn4fqs4TgoEToiMJyERbwuX MudcJlpa52uZU4uR14SM3tO RDcRaX9GLRveqJ3Seb7CABu AJDkuXOdO175x3qhl8kxioZ awRP7nJotDDFiekvzXpA2QT ogFFFclvkiFGy3CRxmPZNcp XO2DNDdhDXoH8FaUODeRH4d ygv5XCV3UStaJVVaHgT3AQI nwQDeNGJqrMmsVPptc588BL W0RfZpCGUgnsKhkVfnzV2hK nMyMCBNaXRyYWwgdmFsdmVc cGFyfQ== GROSS DESCRIPTION k5fsgMRfNEDzzCDsPeGhXTK (test code = 3366) cOZIzl2mxQQTwxOSjUpZhSt NcZnRuYmpcdWMxXGRlZmYwe 0bhy750cIRow1chGMKdAeL4 lUTcSZBegOVwX015YOMkKBr od9fxd4PxASRuoMXrk8D6VM IEzpqkwSi2wWfwC05hq1B8R lhcL6gvLEHoMGRaD9GrCE1o YVSyGth1ZDO8DBI6UDAdFNS eU3TnCL8sJFQttIBdJFj1s9 mqyIhbGEMfNYO6n5ksKLhfc pJyEM6xgm8znSy3y2fpwxCx MGXbEPMyfQNDVVUwD4AqxKo eDv4akAz5dNasZiilBRJ7Bc b5BK4oyv56ghr8cDbxCPVsd lijRbK6WKqsRUFcphwbLEg2 MFxtYXJnbDcyMFxtYXJncjc yMFxtYXJndDcyMFxtYXJnYj chQUqiBOPrFOX0JSxzs641A PZ9TNray9jcw7waoWAuSus0 ZDJxZqPoTpyxBVqgy2Ykw3s kUCIlyx3dGCJ0hMPnfVgbs1 R2rZUzBDTwxCGnosZqDZOmZ pZ1KWdpKC3kis30XCItFMN9 us3baXWtuDwkizVlhKXpJJr nC7JzDUNdo193EABlG5KfMI Wiu1K7oyYwCwJxNGZioXD9n uZ0ZCIpHAv9fVRjixW1waSz mSLvF5mrpT34KrZkyFKpF8I bpH06BdGfeQApT5JbcM74Iu XvfXCtZ9ZkcS60TnCgvVRaU WTiwJAsXr3egHMedMIrq6Hw rAXeYHpxE00ib591KZQfzmL eE9hjcPZwhocbjSIbclcuCY myzzW4DMUpUDUgFZfbTRGdT GZzMjBcbGFuZzEwMzNcaGlj xSozUYimWeLvNXKbLZbvO6v cZjBcZnMyMCBBLiAgUmVjZW j1CXXfeZ0tDy1zpVRasT9bb EAxMPflSNR8iYLkGRUlWYHh WMYuTQ83D6NtmV0vo9WzGON ax96lLZ6bPMSkvRZvZMimhk FsdmUgbWFzcyIgaXMgYSAxL rOgP65wvN4ezBPzK8OaWCM3 IDAuMyBjbSBpbiBkaWFtZXR xufJ0ES5xbXpwurY8dMKwuW FmFWsjhVYuNIfaJQF5Xy8mv NKqHMRylvK7p2CcDKgcJXSb a4EswIGrNGOcVfhxHVRuuQS jIBMfjcPntDulpR9cAkRyLt MyNFxwbGFpblxmMVxmczIwX RrxecmwYVRmRNryI3yrIkZy CMWlvVbwYNnsl7XcOGLxJOX xZkXjAXQwABMzi8veBI66TW xwbGFpblxmMFxmczIwXGxhb esqBXVkXWgxF0teEpAsXJUl yLhuIOgvf7TwFHJhNUVeHrI ccGFyfQ== MICROSCOPIC q7dowTFoLCUpsWK8GoFzZMK DESCRIPTION (test code en0zan5XykCEekARkUNyiiX = 3371) UfvmUtjz54oRY1fB61OS2qU DQbHsR0VOBdmrY3Krx3QMDe RTWfzSCvR509k1jdq9dlaaG nqJV7tLkjLYXeuhuiSsT9NZ ykZWLtcbjuQMk1CXbyPCOvl FK5BPQcrGKvB0KzLEKuUK7z bum4MIJ1IMtpNZAjMpH4QLW ddYGsFVBeqJgkIBvmt003TP J4SfHbLCZoejWfmXsbjF5aA lOhVQXNSHTdi0DgWFGtQSEm cn0= SPECIAL STUDIES (test f1ifuNEyQPLwiHW8LsWvQNN code = 3376) sr3enq0BkmCZnsVUvASzceD IsenYnsf56fDR0eR69JP6bY MByUaZ7IKZzpeT5Ewm8XRRa XMLbaPSgX401ZYQvZCOsgZm pqfg1sR51MAEqgQ8zeSIgHP zgylRvBQjizdHjgwHuVfo8R ML6vViwCGNfwwlkIeG3MLgx IVUmlglcKKf7NTuzIRZzxWO 1FSErySNyF4OcWDWfLJ1blb y2TFG0REkoOWHuYvK5BHZrk QWzZYOkzGkkCEsng916LPV6 JrXxRFMkpwKbzQnvxB0xWdT cZnMyMlxjZjEgVGhlIGludG EztBFypRW8mP8hGP8gCEAwt PRtR5OaNDPtaiQitBOhAEW5 nQEodAYgIX8aAWgseMGmr6u xv0GsH6eiuQgzhWT5VF9iFA AjQREsQDrnh7UziQ2uOhnvZ TGeL2EqCJCYL9PYQFDiOBTT Pf6YWsHVHzFqDgSWPk7aIUn NUywgQUZCXHBhclxwYXJkXG AeVNNMz070nu4xCEDisVZck hFMxULnqO2xYJgiRBdrWAui jMQrLXtzo1ldZMZtx2f6iJK dNFOnwrGyv3seIIxnjoNtIN GtlXTjnBKbSUNda08oTUysj PvkvKphAPLpv7MpgHxdg4Tu NyRhUEyin0HtM61udHNscDL nuNwwYANsptZzGSDqe08jb3 njHRUlCvO6dXFcfKX2yDYxt YQne8DqrDchPGCou3qeMTTk lt0ewqvjfIWiz0BkoG4qhga tYNtduPJpskWkIMOrk1a0gS IzJCDoWRYkLZekiAw7GEInw 510ef8sdwB0sSSnXKQ0PLpv YWJsZSBhcmUgZXZhbHVhdGV iUTQbjfVpQZNbfpIRiY37do 0baVA3h3CqCW9br6BekZO5S WNobmljYWwgdGVzdGluZyB3 YLSjiWQrWq4nbGApESD6AGH zkQmacgGPvE6hAJHwOEh8XV ZpWrSiSrszplJVNNWeA5MrN WSdjbLfghfiHWP0gS6wh7r5 EOhnGf1fQGQgspevs2gmynI ntNOat2BaCVGkdlKuw4VePE JrekUhuWMxJIPcdlUbnr1hq zApTFZkATGbB6PewawxqAbk mrH7COEcKUIrdTIcmPwjXMB nCDz8WZdiqiTxh1YnRnOyal JnwOVcgfKnTG3gUHOjmPRuk eCcPZM6WEPdUAJWVfHoVZKu l3JbLV5hOFNalMbnNZAnhW6 fe8YtWAOdx19xHMWuQWLTVD EgaGFzIGRldGVybWluZWQgd UvrdUCuxWLtSFToBHOlPF8w LRZrehEwfMVok3OtvDUhnpY uy7WchpZpHUYaIYU1VsBJkM JfrEFdlMQtihQ6l3GxXNVpk mAixMrqxOOezPRpaBIsv8Jf ml7kEWHil5wtcRsiCB8jiED iZSByZWdhcmRlZCBhcyBpbn Nig1AjK0U3kP4yOFxth1OsZ d6xXZXzh1VzbkFjWxWPeEln JZvhPt3gWLFbmoihwCBwV6Y ydGlmaWVkIHVuZGVyIHRoZS JLdTpzmQUtvZMRZMMehwE1a 2S5WNtyxBEuktVoCC35CULx MJ6kzGBqkMUru9RxXWo6BCT aJ8iBPP70JXocKGFbhXItcS gmnDNwATMhPXLfvuSguh4bb XqqsJIpf71dtQY8rUO0GBXf vB7gE3WtWMalUq2rEXUtjvw uvRTxdWzpSg2tqMUwhR== Gross assessment was [facility] performed at ([facility], code = 2777) Department of Pathology, [address] [place] [address], Technical component [facility] was performed at ([facility], code = 2778) Department of Pathology, [address] [place] [address], Professional component [facility] was performed at ([facility], code = 2779) Department of Pathology, [address] [place] [address], [facility] [id number] 15:29:08 Test Item Value Reference Range Interpretation Comments Case Report (test code Surgical Pathology = 104) Report Case: [id number] Authorizing Provider: Logan Russo MD Collected: 06/18/2021 11:41 AM Ordering Location: [facility] Received: 06/19/2021 03:44 PM PERIOPERATIVE SERVICES Pathologist: Tom Paige MD Specimen: Mass, MITRAL VALVE MASS- for MICROBIOLOGY then pls send to Pathology DIAGNOSIS (test code = [id number] 3220) uZzEwMzNcZnRuYmpcdWMxIH tccnRmMVxlcGljOTYwMVxhb eYlJBWxuXYnI0PbogglHPdk JG0sHC0sjWdpjFWnfAJcIOL fGyGcn9rbx756rQHlr4qhPW VAbzcyxZz0aXbmW77lm3Q7M roiF07pkWRjSUA7XJYiDAQs fCJgRQQeQBB1GFElcXSyX2x wMHTjIU0cqpjaYSjuSYvtYE KnlEP2PJVklCKhK9KpIXHlJ FxjXGCvjsn8LeJjHo5dqJSs eTcyMFxwYXJkXHBsYWluXGZ xQpWeJQ2vWMYNAvSsDS8TXG JBTCBWQUxWRSwgREVCUklER H8OLkHyDJ5BWLRVLPKCCjlg cGFyIEZJQlJJTiwgQUNVVEU rFH2JLSEEFUSIL7WHGLWRE2 RWK8ZWIWADMpNyF0USI1vXT DXWYYgPSr7jqMFtWLRDQKIL ZDclQ3RBRK4UXDLYWcQBNgW YD7MGF8TEAV8QI4HPDSIYEx JPFB2WGA6VFXZUCOHFPuZDF MMHWbBJR1gPQ4pyLWowKHLf P89DIpJRHNPAZ08qD2oWREB IPFSVT0UNB6tSL2jEHKljP9 UPGSuROgAXFtGVYPGHVL1TU cAXIJ6hFZWjcp25CGL9OmGh v2S5MVF7QDUfQACki6qjWTF mbGFuZzEwMzNcZnRuYmpcdW EaEKPnVcHsa1iqw907zCMqz 2drNRYzChR2zYIpKAIktNBd L620MHMuIKjoh2han4JtIHM bcWKbt3T5XSZIfjefbLf4eK zgC39fd2S9QjuvC8tbAZOkS HYpK3WlZG6bQXVsRsb5AOA7 HUQ8TDZjFEJkR2CiCL8iHHC fcXXqKAu7x2iwfZviFMBhJF K2j8scSPlffvDxBX5nam2pn Wx8f2oumxXgZNMrPGCgkDBH AZOhX0YdnXzfVv0acUz2bZt iUtejTII2Rbb7XL7tsx87jv g2dVepCIOspjbsRiP4WUviJ EXjggfsYVn5HWevTJSfxKW1 YHAbgSYjS6JvPQPwXN4vbbz 1KBC5OFlxWKFfPbC4KIYhrD JsKQUixDwaHDtaw556KIQ9G bDtAC7sI2Wvh9L7bO1ldPTi YGUzhDXrFqIsNAToag1piFW uWAueg0FaNCJ8glG5pYJouG XiNUNwZaY3UFffJN3cvo50I DDoLBX4mb1vvRPcjPtyajUo bPFuNEriT7FhAQLat229THX cX2HzCJKdm7D8cyYwJjQtWE FhzYR8qxY7NALxNF8gdmhbi 3ggJYhvBBapTBAbkkS3etO1 QKCgvGCoN5NibO5kIHXfRY4 hptumm6ggTUO4NPshQRNuXC B5LdYdXLCzr9Pcles5RhSyv 0CmuGWlAUjpV10yn425KBMl mmSyC1arzGWeptmzaYNgjzd nBLrlqpS9FOLiSMhebezpDY TjWIpsL2jxXyKdNHBkbMxwL Rsem3BeAROxYIPeBvWtiNWg WROsWfm1OLFnhRHzDCFuQxV dH4wnghrbCbBBFUVhd9yeM9 uawHQDlYPuH3JgYKbktnWvP QleZNnbCzXtVKXmGT32ZDP7 YJWbgh03 CPT Code(s) (test code f7oyjXWvOGNybZX3EtTrNUW = 3357) zb6jsr3GpdPXggEBhHFbzoC DramAfbn83eHQ9eY38ZQ9qT ADyLtI8HDCnonV2Jqa5HIJh TUJdmGSfM300w1jng7cbdeT wsCA8gWkrBCKrzzahOiR4QS kaIDInnvexIBr4QGaxRIGoc RB5LYXznXZmY2PfLULtCB3z stv4HPH6TDfcFWMvMrM1NPK ghATnBELyrUjuZRbaf492JY I3EtXnJBCequNhlXokbG9eH rFxRTK0DLBoWAomCUgjDYNB D2ysLIB3 CLINICAL HISTORY (test n6ortACoJXLqxPQ8WiUlDQV code = 3356) yj1cye3FnqLRgmFCmVCpfkG OdhfHjxi32kFH4tW23TQ3xW ZToMoH5WPJnbdI6Rya7JEVo BPEerVPbE643e8qpc0pujeV tmUD4bJpjEXCxalrzVnV5ZL frQWGleexdJOg7QPspGMVbg HO5WOYxhZAgW8ZoDPQoAS5u mhe8NBG8ZPhoSOEgGrU2VGQ hlUEqILEnsLhfLYrjd989RR L2BfTrGPLvbyNmcNubhQ6eF bQuIAAWhqZpH9WuOCn8xLEt cGFyfQ== SPECIMEN SOURCE (test d0lajABdXZTzuAG9TnEfUIL code = 3377) nb9rau2WewWFrnZRiPUefbT KtbmIumk34hTC0lK70UG1iX BWbEmB1UBJfftO0Vof2UQOo LDSggUXtX259l7wjd8lavcM zeXR5dWjvGFXzrkylNrT5VK xoHRHnwenkLVn3MKrrQNCre ZB2TUIkoUAzY2TbXQAeFO7a ysx6MSF1NVdzLBCrQqA8NVY kvMEiCKPyfKszNPxkj129IF A6CmUuPAGuqhSpgUtqiS7eH nMyMCBNaXRyYWwgdmFsdmVc cGFyfQ== GROSS DESCRIPTION v3ejkTItEPPvrVZdPgZmGJL (test code = 3366) rRMYon9piLXOttIVlQbViXs NcZnRuYmpcdWMxXGRlZmYwe 4xrv417vUUox5cjCFBnLlY0 eRKlRJVzeUFqU821NXBlRAk op8ava7GiYBGfeZRgr2C7PG DCocpfmNs0sXtwM36hg8H1Y fufP5smTCGdPDQoX6WqGR8p NFVzMpr6IVF2MWT9SBIjJXI gL4AqOS9kDJQrkSPbNSx9m8 sbmRbqBWHaLJS9t8ljBKtsg lYiEO3nki7opNm9u1uemwNg UBPrPFYdpFTPEWCuS6YkjTm pYt8tcZf6wXsiNygrIQL5Cb w9RO1xzm58mip4pIeaKDCdm irjSuJ9OLymDWNsvhipDPr5 MFxtYXJnbDcyMFxtYXJncjc yMFxtYXJndDcyMFxtYXJnYj mzNNhtXOGiVZJ6HVpcd100L XV3LUqcp3avt2eiqEHsXay0 JWXaStPqFuztSDceo7Pkh9a bGAYldb1jXUG0bITvdUibp1 F6wIJnAAXlxFKupzRuIXLpK lN6FLebBN4xap96VFZbUNN0 nw7dzCNnxAcbmgYsqQLlQHp bT7ZaHBAry417JIWwE8CaZI Hrc5S2ewOmPhXjHJYndOK8a sQ2CERaXZb3pJKckfW2scUa pTKoS0pnkT54ZwSidKMzM4C wwN68PlQfpNRrP8HhkF07Mp ZguJAhO4PeiH12LrQojBGkA JOdvRJwSq1wsOIlvFMty3Ln bDBzDKchH40ml715ZNOmwkT tT4bllEYpihhrqIMqbismVI lpcaY9QMKjANYiBOuoHECcZ GZzMjBcbGFuZzEwMzNcaGlj hRbpTPxbBkKvTVKzQGvzO7r cZjBcZnMyMCBBLiAgUmVjZW n2CAXzxP0uQw0ljPZpxQ2mg NPnGNepUJP2fRVyKTJbBYOe NTNzYM06F2MfgM5ba5OhVKA pb15nDL1iXPKsfXMjWXlvvy FsdmUgbWFzcyIgaXMgYSAxL aSgF55inI1olCLfT2AjSTG0 IDAuMyBjbSBpbiBkaWFtZXR bytM5SN8qyWybvuW8xYVvnT YpYMuiiAMmRBhyJDS3Ka8gq FGlFNUmckT4v7IbUOxgCFZy a1DpsQLdHWJgXybgJPXngUE uVQGfvxFemIuahI4kJlKpDb MyNFxwbGFpblxmMVxmczIwX GimqimlDBLbSMnvY2jiBuWb UGVxdImpQDvis3AdKDSjYEB sYqOvPLGdVTGva8vzRA44ZG xwbGFpblxmMFxmczIwXGxhb vqvMXKbEMsdH6alXtGlMFCh aSixUHygz7JxIWTaZAEjCwY ccGFyfQ== MICROSCOPIC t3joxBBrSSZtlKD9PtSwHFL DESCRIPTION (test code sg4fdi0OcwZEpjZXfJEfglX = 3371) JevaBkiu45rNF7oK51UF7pT NRsFwZ8OLNoixN0Ech9FVYv SAVtwKDhN737s5eoc3ohczJ ctSF4aJgnKIUpzhdjZpJ2FG rePLNgbvuhOYa1FZcmMSLls UC4BXUsgHYuC9InINQjBX5g gbc7DYN7AZwxVPDuFnM8MYV uuVPbOZKtqCkiXIfhp576GV A7CmQaTIQizoFleWujvI8uK tEhBXUZFOMbk7EiBHVwKOHl cn0= SPECIAL STUDIES (test c8qrsKWbMJVdaQM0EpZuXYV code = 3376) mq7dfj9UbbVAyiDRyWYbgdF HvstDotb07oUY8cR44GY8iL CXiTaH0NAZhlzS2Zru9DWAq VKHrdOLcG299EDWjTGTkcCu alrj1eH63ASOkdI6wmJRsUZ kfoyPvXWmqnjYcryQaQyr1I MC0jFtpRFSybckwRqY2UNpk ZBXsuehtBWi1ONxbCEBlcSB 7ZQEuvVSbT7IjMFEwIE6uks g7KPX4RZcrVWDmJwE8SFXsw HVlTSPdvVkcIDgaj681AYF4 YzHpFEMtwnFgqNingE5iXpW cZnMyMlxjZjEgVGhlIGludG IeeYHebAG7oO7vID4dRCIxx SRpW6NfFHQrnyAhsHOxIMX8 uXDcsLCmKP3rREmywMCua3o jl2PgU8fbnJuqsPR6IP4iFL DnNMLzTGutk4AskT2qKxjtV BYbH0ElSEWEM4UHYPOgKBAK Ap6FDtKJTeOgRhUNZj8tJYj NUywgQUZCXHBhclxwYXJkXG FfNLETc859wo6cJJYaeJZwy fJNjUPdkU9rUOffHEmpIHly iBFfQExxr3owMADfy8h4tMH rMRJuycAra6wfYEzwjxApCP JinEOqcGVwBWClq33pTAuio DlieVbuOVTfi3BbdCbne6Cj QfKbMBsgq8OcO84erUBcgFN ccAczPMQtdpHlAZKpo68vt0 hnEZTeAfS7zDOaaPM9dUXio KVpy0MiuNbaXDSsf0wwNXFc cl3fqpapdVTch2ZxoD6zndl sSWlxmELqhrDvZSCvw3d2wY SqOYRxTCKcCOgzaIu0SFCka 006ey8aufA9mXZwPXR3MQsv YWJsZSBhcmUgZXZhbHVhdGV dFOMbktTuWXMjcoHXnC78my 5gqFP3e0LsAG3lk3BquQP3H WNobmljYWwgdGVzdGluZyB3 NSQrgXQrMm8cvSFuGIZ2OUV rnCiymmSKiJ6lWIQmVEo1FE NcPwDxTvaqkhFPKIXbA7JtN WCrjgBnsimfLSI2xI4cm9u3 JEwwYa7nCSHlxlvqe4cqxyQ xvEHqh8NjRUIlsdUfv0UsDD TkfcEquXEpTCQcsyMvmz8gt iDlUMBtFUUcB4BtmaqztUqx njV7OESwUHGciPRbeKypVJT tWFd0COrmzlRfy1RpNxYmyd UltBDrstXnXB4xYGRmbEZcl nPiPRA1HJOeMJDTRoMpWCJo a9JvWI7fCFIxnVbaCFZsrA1 vm5YrGHGrq66oVVJjZYYEAH EgaGFzIGRldGVybWluZWQgd WjdcRKzhOTfCLOdYESsKO5i JNPdwtDbxBNmy5RclEDpzrR nd7RetuQiKVEeTVO4AfUEaO WacEMrbYXgneW3l7SbYWYvb gMbxRjduFUhpFMryKPkw3Ha fe6yTJWqd5rxkLrmLO3ajDP iZSByZWdhcmRlZCBhcyBpbn Xqc6YuG0G7qR2jXUkfz0FgL p7gAQIwp3CjiyGrCuRTiCmq MLqmIo9hMFUvsyupqWUuU3W ydGlmaWVkIHVuZGVyIHRoZS IKbHmsvLZdaYWCZJQimhM9z 9W1UNmunGYftcEbHY91WPFd IW5jzZHxsGDzy9FcXHb2WTS yB5hHCX10CTqzUHZniWVfyH qabIWjROPpRQMamrSgvs7gy JzmmPAxt97tsME9bIA3NNYk wQ1wU3MqNQujMu1uHPUwtdl edNXxxJwfHu3ljGKyqZ== Gross assessment was [facility] performed at ([facility], code = 2777) Department of Pathology, [address] [place] [id number], Technical component [facility] was performed at ([facility], code = 2778) Department of Pathology, [address] [place] [id number], Professional component [facility] was performed at ([facility], code = 2779) Department of Pathology, [address] [place] [id number], [facility] [id number] 15:29:08 Test Item Value Reference Range Interpretation Comments Case Report (test code Surgical Pathology = 104) Report Case: [id number] Authorizing Provider: Logan Russo MD Collected: 06/18/2021 11:41 AM Ordering Location: [facility] Received: 06/19/2021 03:44 PM PERIOPERATIVE SERVICES Pathologist: Tom Paige MD Specimen: Mass, MITRAL VALVE MASS- for MICROBIOLOGY then pls send to Pathology DIAGNOSIS (test code = [id number] 3220) uZzEwMzNcZnRuYmpcdWMxIH tccnRmMVxlcGljOTYwMVxhb jAtQABtaQXkJ7SffaorLVdn XR5nIB6wqHoqhUMsrMKuBJA rZmBfn6rhn585fSAix5ppYQ XLzrubmDr9jUnuT90qo1L6S wyvJ36udMOnRHE5RNIlOXYk oZXmMPWaIJC5LVBtbDDkS0d jZSNoWO5jqhdjGMorGCzuYF EiwAF4XEPgbZTsM5RgOFFiD RocCIMkyzz7ZoQyWc6ijAQf eTcyMFxwYXJkXHBsYWluXGZ mDwGbSI2oGWNWDoVfTG4XHI JBTCBWQUxWRSwgREVCUklER M0EUiUvUR5KASAQDTGQCthn cGFyIEZJQlJJTiwgQUNVVEU tHI0TUJGAHDMYE7NVXTLRK4 NJC0BIFLAYZwGsA2OCH2aOX CCMRXqQYx7vzGAkEWTKXJXI AFauM7SENS8CDWARLvDDQsH MR0AGN9HWNU0UI6SIJDMECo OOCF9BOE0KBTAQZGGCGdVZS IDOCuQCO6zPC2ivRTiyTQOe B97EGzOLPRWIX51cS8lIZVJ FGBANO1YZA0wOK4zKCWdsX7 IUVUnZNnPPLrUWSLBQTF8RV yEAJJ1aFSYzur69TDD5GxDw y4Q3EIF5JJGlSRPef3wxIGR mbGFuZzEwMzNcZnRuYmpcdW OvIUElJlYha4oii505pTNes 0neNKXzAeX0pPMiFBFnbDGu I381ENPcYSvyi5yko4MoBVD rvDUvn2I4QXGOdrnwyJn9vT mhQ20ax7A0TatyC4ybZCQdU LEsK5MdCF6xQNYoQfw1HUS2 RJN4NVDoQCFzK9LuEY0xOFJ utLMtABn7s6kowPteHGFuOZ N2s0dlGHwquuRlIC7eam7hr Nb3v4gczqVlLRDlFMFjlUFF SCQbR7UvpQppCa8rzAg2aGz iKdatJIE8Hnt9XX3izp28ce o5zCwvOBRngalrGcE5RFhdV MXttktsLJx6FXexSMFcqZW2 ZEGfiRFgE9IlIESyJJ7qtjn 3NPK7NWmeHPOoBtZ5GDYxrS LeYXXwwTjyETqky216SKR5X vAgDY3aE3Wbl3F9wQ3ljTGm YZSrkJSvPdXbWISkhf1afUI sJSrkr1NzXAL1skQ9yWBujM OfMBWdAbB4GCjlPG1vpm22H YCnCNM7ib9zvSYxvMnskeMv nQGiCBvfK3TuGCHub832ASD wN5TsITGps6K7esOvHhIaSR PgeJT8tgN3CMXzAK6wmvwkm 7muKTeoZLapSNHjshM6zjY8 LCYxlUVoX2SjzM7lEOQeBV9 doyjai9dpBET6IKimZFDuTK O7DvLzKHNvb0Eonak1HwWdo 5QajFXtDVjvL88tk009EGUb jvKbM1vnhBSswjzpeOIzdrq tRWrqlfJ1XELoEYtnxlyeYZ JpNCunD9oqTqDgIUNqtQpeP Iahd3OiHWXsFHDuIzOrpWPm STSnTow6MAPcyPZpVJIaTlM dT4kedmiiCdWPGVGxx0cwD5 llrDLRdIAwY9AyHWyyhcArF VtaFZriGiXoIUWyMZ74FPJ6 FKUafj86 CPT Code(s) (test code t4kjbWLaZVImtTE7EqHuGHV = 3357) ri4wjf7WgtBUktRQoEOaqfM BoxtSwve25sTJ5dN56EM5hU TJhTsJ1ODPoqkN0Khg6CQXk ONRuoBHaK545b5xdi8uiglR lzJL3uGeuKVZyykscMeR0WI dtQYZanjcnLXv2JQunITUqc VO8RHCtcZMoS1OsYEJmUE9e iol9BJN4UIvrSDSeHyR4FUA nsJQjEZQrsLqsRDvpc307TS A9YgLuITAnreQbqEspuV9qT uBpAUE8KCAlRRgxHWpoWFRT H1hhMVC6 CLINICAL HISTORY (test k8rxiTPfYQCudUC4UoLwACS code = 3356) ma4tgc6DttGGioRYfKNehmJ TezlMfyt84dCD1eO98SR0mY SDwJgH1JXDhvqI9Zmo0TVXp QMGsrSEuD433p3yhb5hqtlT qkCX5tPhbQPJbzvjgViE7EP odUYWqmlpxAEj7PKahVBHri JA9KENuaPQvS6XqOHKpQG5h nzf5GQF4KJhpQIFrZyH6PKC cqTPiEVJkqFubYAeph719ON J2CqDwLUItjrPecEzbfT3gO xQaYZYFxpLhW9SxWYe6bOIp cGFyfQ== SPECIMEN SOURCE (test g5wqwKPcENQloBF2XqSuGLN code = 3377) hc4cpo1TcnOMzxBCrMKykfO RwogNvvy46fLI0cR73NQ9bA SWuArC7CFNctcC4Suv1VHQt MBNnlTYkR888k3ohj8znjjD vsRS5yQpbFBQnixytVzF8JW kpPPOutrzdINh4QSilJDBaa CA8LSZavRJvA5OmJHFeNC0v iwp4BCY0LEqcYWFrDiD3CID uxBAkEQFxdWqcPPdxj007CM C8KoLeKIWrdmVkkLzjyI0rO nMyMCBNaXRyYWwgdmFsdmVc cGFyfQ== GROSS DESCRIPTION m4jtqMPjMNTliQNwFoWxJDR (test code = 3366) wXUHan8ksHQZkqBTbZaRjJk NcZnRuYmpcdWMxXGRlZmYwe 5kvt013nNRrg0wlAASySnC9 qINsRVCjdRTaO337NUBhRSe in7atk7EnMXDohXQxo5U3QW XYrewneYs4cDtxF29ng7Z0P wpxT1boYURwUDKkD6NkQN2v LBJxOmv1QBS9UQH0KWNuFYE fK7LaDG8hXYHlbFGgZIk8x2 amfMskZQVdRYI6p0nfVRutj hQgKN4bxg7nqUn9b2oxxoLl GZIuSULjfESLIQKoP6MviPt eRy8mpTz6mMaeKnfwHXQ9Lh x7QH1rir16pjv8gJncRSBba nhhCuC8DDkdYSEqxhokGDb0 MFxtYXJnbDcyMFxtYXJncjc yMFxtYXJndDcyMFxtYXJnYj tzTNriNIDyUFR9VNwao234K ZX7PYkxf0uqy5jyoIOcAqc4 WDXhSfTnDyhbLAijx1Bmh0d kDZNxjm5dYTX5oKVpxTqbi4 W3mDHqOOYdkGMyhkOzDWZnX tD3HTkiJX8pnp86YKOlOCC6 sh9byQAtlYznddVsuIIvDFu tT9OzJYXnd379CWNuJ4CjWC Azf9K6jfHmKlTfXDCpgKY7d lG9TPKnOIh3gDKjgbY1xiGj iGGlT6wurP04JyZvjBEtF2G dgZ93TtWnnDYlW2LqhJ74Tx ScxLPpG7YagC12TpCdaLFvD PNymNAvCn4sySUpxKQiz0Qw xVXfMJbwK53cl576EMCyaeI gM3yatKQahzedyFShkwmbCO xzwlH4YJVdKWWcNXhiKDAdG GZzMjBcbGFuZzEwMzNcaGlj yKpnPBvzTeXiTWQaLAyaM1i cZjBcZnMyMCBBLiAgUmVjZW u3MVDzcO4sJo0qdVHoqB7lg GYvSLgqLFS2aCKfSWHfWZEu EHVdPE76H1NihE0uf1SuYWG mu07nTY4xPTCfxNKoTDjxat FsdmUgbWFzcyIgaXMgYSAxL vWoL21vfN3eqKOaD9VuZJE1 IDAuMyBjbSBpbiBkaWFtZXR pqxW5HF1ynCadogP1sOOlrT MtJNkerOLoLGajGRK2Iy8mn XChDKPchmA0l3YzIYsgXXIr t0UutCNwEMLkArfkCFKgnQU bMWVwxvMyhDlulO8fWrJfOh MyNFxwbGFpblxmMVxmczIwX FyvalqhDHVdRQqaN1xfLfOx JZLdzMruOIuiy2GvIXVdDHN aUrPzKHAcZHMgl8krHN88ZI xwbGFpblxmMFxmczIwXGxhb jiiGIHyBYvpR4xbWrPeTXCx iBtrFSaqg0WnLONuJVJcPrR ccGFyfQ== MICROSCOPIC i3irmDWjLBTacXK7MhBzOHA DESCRIPTION (test code dc6urf4PstZLilGBaOWthdU = 3371) JqykMpre24sWR2lX03EY5kS XTpDdC2AMJjtiC5Rmj2TKQu HFDayJLeL376h8sfa5trlwW ppIL4qMoyUSEfluuzWhK9EY sfBTAbotxmUJj1LVltYJUcl KD0YZQrzGTqB2JoRZYeTK0b gvw9AGW6JBpnVLOmNmR7EOA bsGNvKJYtqYrgDGnqo026WG H6XwEeBVLxcvKraMdfdQ1oB vQvOATSIBDnr3QxRPYuKHVn cn0= SPECIAL STUDIES (test b1tgzIRgAWGtxWL3IeXzPNF code = 3376) md1kzi9RfnTGusJSmHRmzlX MpihStln91bYJ9lR74TU9wF FMwJfR6CPCbmqZ6Tph0RGXq JESgjEWhX126GUEtLBJbdTq vlfu7uI28ZTIxdR7lzUKnHY xwnrLyNWakuaIqirUyYmj4R FT1yXslRYMgqeuhIwT1SDty YFAmdshfEVa0KFllAHVieMV 8VWWhxDOwT8AwILArJG6gqh x6JYD2NEviJHGnXmO9LBVoz SBtFTZclGrmJLwcx129WLE3 WrAkHTKwyzKpuPyhrW6zKaX cZnMyMlxjZjEgVGhlIGludG PcjTEqzKM8xK1iPV2cTFXva POpL4WqFBKbutHgmLUpKOO1 aNTipIRaTS5fENgpfOFpy9j ny9YyX9czpHtygPB3YU5vAG TgPTLlRWbgp3DvkK4eOawjY RLeF0EtOSXYU4FHATUoMOTH Dn8GUnGBUzGoBcGARx0jLIf NUywgQUZCXHBhclxwYXJkXG LlCFVRh872dl0qNMGgmCLgd jKCqKTexJ2nVEwcAKkwYHkm lSAaJYmec8yiLAIpy7b0sJS pUZHodtJva2juJFwgiqFsHI LcnGGgdYBhRLUqs34vRJzbj EfjqDhnDMTic6PqnGzof6Xp HhJuFEsud5GuN89bwKMnmYL fgVelRRWjooOtXYOfa24ih1 glAYDkVqP1vYAakGO7tXLct UNhm1YsmKpmHXPdo2kgNLAt hi0ljgoiwICex4TbgH6qlym rVHbzdNVkwePgYYPkv4d6nK VeIXCdDIDsNBouiIn8NHBck 177le5jroW3qXRjTZC8YThh YWJsZSBhcmUgZXZhbHVhdGV dCISeyvNtYSZqduMPvQ80fe 9mjQR0f3ZtGG7bo6MhxXI2W WNobmljYWwgdGVzdGluZyB3 UWKosPRoUf8jcAWyEIH2UAF eiQpodcRFoT9pYHSxKBv8JX ArMuEzWbajfyGLGIYzL8MdC WCmpwIdyiowDSD4iJ8pq9h9 AZvtIg3yHLJfrgzhp3bwhwX seCDrl1UmWTZckuCtd1TlUJ BkbgIabPAxCBRcyqHbeq0sy mQrNRTpCXRuX5BrktxpjAjc ncO8TEOpUDSkdDCdpEegCXD hETz5JQyhkcOjm3ViNqPyjt RsgMUhxjUrMT9eSHGglKLld jOqNDY5ISUiAXEEXuRiCMTq t2NiGF3mOJOkeSfiPVQjbH8 sr5VdCBJpq74rJJNzLXJUTO EgaGFzIGRldGVybWluZWQgd KvpePMauDYyZUIhXLOaEZ9k NRSvzjJltLFtt8FrmXRsjvP ze2GbugGoXRTcIZO0XnOAmK XsqGZfxBNevnH0i7OaLECqq gMfkGjwiSKbsPKbcLOge5Vr ig3dYZDdx9pcqYrkGM1esNQ iZSByZWdhcmRlZCBhcyBpbn Gvx5SqR7Q9xO0kGUmlq8QvZ u5kERHhm8FzhzVcQmYCvGls MVasHp2tVMNtvxcerNKgC7I ydGlmaWVkIHVuZGVyIHRoZS NVoRahdHDqsIFETZZowfW0k 7E3LWlgsBAtdnFaXE65OWTp LG9eyDTvtCQku4ImMPu0CJJ yG6zFJN80TJfmZGYgrEPfmN knbBNzZZAmMDKzwtVxfe2vo YiyxMIas53hoEN0xUE9KRGa gA6nD3HfMLlaYn5lYPPxuzg okXAymHujFu0jaTWtrK== Gross assessment was [facility] performed at ([facility], code = 2777) Department of Pathology, [address] [place] [address], Technical component [facility] was performed at ([facility], code = 2778) Department of Pathology, [address] [place] [address] 569[address], Professional component [facility] was performed at ([facility], code = 2779) Department of Pathology, [address] [place] [address], [place] [facility] Hospital[facility] [id number] 15:29:08 Test Item Value Reference Range Interpretation Comments Case Report (test code Surgical Pathology = 104) Report Case: [id number] Authorizing Provider: Logan Russo MD Collected: 06/18/2021 11:41 AM Ordering Location: [facility] Received: 06/19/2021 03:44 PM PERIOPERATIVE SERVICES Pathologist: Tom Paige MD Specimen: Mass, MITRAL VALVE MASS- for MICROBIOLOGY then pls send to Pathology DIAGNOSIS (test code = [id number] 3220) uZzEwMzNcZnRuYmpcdWMxIH tccnRmMVxlcGljOTYwMVxhb wGfKKGhfFPxU1TrqhhfZRyy GT6xUG2bpZxigDAjmVAoLBR zJvOuk2yjb169sBTap0pvMO VGrtphvWv2qSmbR98ar3C3Q styA30pvIQkGMT7TRUgHHRe rQFvJJSkIVV6ATMjeDXkQ9h aXWMdKV2qnwkvNQxyWQcnBZ MstJM4XRXxoIGpK3MrYVMhX UysPQIppvt5TeAuXt1zoLEb eTcyMFxwYXJkXHBsYWluXGZ tKaHhCP8wKWNTIxSmIN0BSF JBTCBWQUxWRSwgREVCUklER S2RDiYtYE6UHIEFLZWWIasa cGFyIEZJQlJJTiwgQUNVVEU mII4UJDVXIATHX6JOHDTVL0 BHZ7TGYJRUPxKuB9QMB2tBF RZTNZnEKc4krTEdSGIYMYET EEkhJ9KFIC9TRMDMUuQGKlF EF8SKF8RESJ1UJ4SYNIJVBd NCZL3RJR9GYLGBHLMAJiNBB WOIPzPRI6uWQ4buEPguTINf Z95DVwDDFTKXO44hW1fOLGK ODJSUI7RCR7hDJ7iORYzkC4 XPMNhXYmMMDsPUXSTKMU0VS zPZZB5xQKJsnc41ZJI1GfVh v1M4DTM6OXXkYSBma6ujDMU mbGFuZzEwMzNcZnRuYmpcdW BeYDDbAlKjk0ylk490uSHic 0nrUGRiGrM9wGSsKOGzmVNi U990MWMsHPgvw3pco5XvQXE qzMNew2D9MDXGuigqcWl8hF zvY94dx3P9ZhqoA4btNSMtI AMxY3UtTE2eSRQpQup1IFS0 IOR4STJkSQPoX4YoPY7aIYJ njVLdATr9r7adkPduHRXoKP R6p6lrZLsizmVuPF7wpf9kt Cg8o8wsurDtBYBjNIAlkDAE UOUvJ0BlaBftUk0nsIb2yWj lIkagIDV0Tmp5GR6nxu67gd o0hLatKBHkueutIxU3YQhoJ BZncghoIFw0NUnrXURxkXJ3 OHHxjXCkW9TyIGThAI1kqjk 0OCT0DGmgXGJbFuO3ELHjmY FaRPWmoSlnFNudj483YUP1S nIiZQ7pE5Xci8Z1jP8ntDSq SBCjnJBxTzFtXZHtlc6egGY ySMiyd2TkUZA0gnN5oRYyqJ ThGYCoQjS6ENjdWA1mtl57J VBtGWX1td2tuICkcVsahdQz zHGbDHjtT2HbSGYeu806NNJ kA4ZyXDDga6X4ycTcPfPvOD LdeJR5xoT7DSLxMT2vewyem 2clSMknMIltHVTsxmH4qfE4 HWYevOBfU0NveV6nUFWbWI9 dgeuuf3rlFGC0JCgxEWBgEM O3ZzCeIUTwj8Nqrxx8QmNok 8EqkZYpBBxoC03az136WJLq rvGfA7yfxTIdbzhigBCikja yUGvvihO0CUHzSSyiaoduGR NuQCmaG6fqAbZpIASdzEpnR Tbhg7PtFOQnWUWuNlOctWPr TUSyBty1GJMdkKOlGDBgQkE kH3bzdnakPlYOICWyk7lyA9 pfkURSwZTxO1ChQHzqfwQfE YgpMWvlJjIxYPWlLH25SCY4 VWVmxz80 CPT Code(s) (test code y6mavCXiLWPzmYH9DwDhXGG = 3357) ci4hyu2DtvYTjdJWuRFdnpK QqzsJqua87nUP0aO31JM3mN QGlSjD7XBTcmqF9Iwn6AUPb FMFucCLiE335o6hcx0rpuiR lnHI3uBqxCSBssxfrDbJ6GU vkDQTprtnuKIi0PXrcEOVbe AC8GQZdpBLcN8LbDGNbGH3j mik0KDL9IBzgSWArIaZ2QJG twMMnSPLdzTmtIMioh047VT E2YuXtYXDupdEorShzpI1qR oOzMAX6NJKuLNkxZCitMLPQ C4lmJHW8 CLINICAL HISTORY (test q4fecLZtIJNjiPK6IhIrXLF code = 3356) dq1fov3EszQAowJMxVBzrvP XgdoDfld25aIL2eE67EZ4vV XRpOjR0DJCwidU9Bpm9QPZk ODJhcJMqH244i2vjq0lyusG zlAH9oHedQGIimkbzQrR6CL wxRTDpegcoTBv2OIgdMKRpo OT9JTRtuGPqH4HnVBJnRB4h lcn4SBE7QTuqJNLeRgF3DYS hvUMvNRCpdJzpREptk534GE M9OlQhPISqfjZxzLnhdJ8fP tVmTJEItkZsU3RzURe9kNTw cGFyfQ== SPECIMEN SOURCE (test f0jtlCQwAVSnmLN6PyVyNUU code = 3377) ht6eqc0ArtZTvkZRrQTdlyX WgxlIrkx63hOT7xT83QM4dK JAbYlJ8TKAjayQ3Tgr9VSNi KQPioKCaT983u7ygo3qfieW nsFI4wIinULQjbrskSuU3SY qoYNTjsfzaIBr5ELiwJLHff CJ7KQLayBGsP1NaRAHtCR9i oyx0UWI2TMmzZQUkUuQ0MWT tbSFsLDYoiJwiQNzfb326OS J6BnLfWRAkddJcqRlxqU4lW nMyMCBNaXRyYWwgdmFsdmVc cGFyfQ== GROSS DESCRIPTION v9jrkFBeOZDdsMRmIkWdIPS (test code = 3366) iEHFkr2vnEZUreAZxDhHjBw NcZnRuYmpcdWMxXGRlZmYwe 8sid486pPPgr6ifJXJlUoQ7 uRCfUTUpsJCgW188RQOuIGo wa2hzm8LfZTJwlDXgw0L4NE ZUsxrkjFi7dOicV58ov7D9M fcqB1rbOAScMNKgZ0MaOR3o GGYfNjp6XLV2KTY8CXNaLKX dD6DeKA2eOWIljSBbMJa8n2 ddzZvvTEPxSHZ1y8etDTzmx aEzJQ5xhx2goXr3n4vpwmNt RJLdPQAmfKQPDYCjP0DkrIi gSg5geBu4yUqgOganIED8De b6ZI6mqh33jxr0dSffBGAor rrmZvO4UYcgBUKydrlfDGp6 MFxtYXJnbDcyMFxtYXJncjc yMFxtYXJndDcyMFxtYXJnYj ywVNueQIGzJDI7YJzmg329E FT5QTsmn5flm7ifqCRbCrj4 XBMbVtIrAjrnLLenx7Dgs1c rUBFkrh2oSHR7uATizRbhg3 Y8uOUsRGYnhCHokgNdUDKbR iF0ZArtPO3zyh87JHQqQQO2 vn0qoPKstIdbkfUhnKHdXKj sX6UoPCUqv009WKFlL2UkKL Nrc1V6cfPfQjMpKLCgfRB4u eF8CMJoTNq8pLZmimB1cmEf gVHtN5sqmZ24ZnChsVVeF9N noF67EzVscDAvG4OdjW75Qn TwrXNbN8SzbR73VdYdvNYzE IEijPAyTp3oxPShuERvy4Dp jTUhUIwwK84wd019ZACoyoK oX6evkBNeutexcDKtodynIC fdxnQ8LNRfJHCkWWkaWNMcR GZzMjBcbGFuZzEwMzNcaGlj tIhdUBvkUrFsYBIxBZpmB9q cZjBcZnMyMCBBLiAgUmVjZW s1NPHcwK6lNp9grZCmnG6lt BGyRGnuVGY2cRIuXOGlDEVa FQCoJL54B2ZlzV9rx5WdNAV nm72mUN4uFPSyrDYsFYesny FsdmUgbWFzcyIgaXMgYSAxL iSdE70ziD2sxEZzI4RrQST7 IDAuMyBjbSBpbiBkaWFtZXR fprH9YZ2pxGgstuU0fYFixA EhIBivrVGxDPrhHCZ7Mp8ik IHgYUMngoE4s4MvJCorFKLk x3IoeZTtBQTzAsjoLUAyuUZ mCRTaduCkkKlecC6cWiWpUw MyNFxwbGFpblxmMVxmczIwX AdilhswPAMuJCmuS5zuMiEi GFRqbCbvLYcja1IbOWFkQYG cRjVbRIRxPWRfj2evIH90NF xwbGFpblxmMFxmczIwXGxhb qilWNUvMEtlC2rkEsHeKSEv vCmrJYlzp2UnDHZmVAZaAuN ccGFyfQ== MICROSCOPIC y6ojfEKmLUJlbGF3CrLaRIE DESCRIPTION (test code zn2ymf9ExvYKqiDHvBPnlxI = 3371) BhweYeqj74hYP6fY25EU5zK WFtNjT2QFYkoqM5Iab7WTPu MRPixRFaZ467y1ucv0pbcbP jyUW3gZfxJLJixqjbQpL6DV maRMWqbxduAQs7HGdtSQZgl XC1WPAvnFXtF9XcWKQtWJ1p wuq3XMG6YImuTCNcRuR8VWP shRWcEVVueQqhVBewv992GE P4KzPjIPKfmsYthJokjX5aU jIyPEOSSPPbk4XlRUWhIQNc cn0= SPECIAL STUDIES (test e6hsdXRnBVSvyJB1MlTqNPI code = 3376) co4kyf7WkrPXnzGSfTWzlmI SxztKvlj99wKL9pM02HK8rM HAsZcH2COEbhzY0Jzg6UMEk YHQgsXMqT717FYYlFBCpsIx fbep4dR22RBMddX0fyOUdKJ zxbcBbNKpyujFykjKcTuo0F ZS8yBdiCVLtwtcbRtN6USos GHXwxnmkDPn5POiiFSHlpFS 4UGGywANaY3QcCSEgVB4osz e4HUZ4PIokPBSzHoL0AZCnh LXuMUYrcZcpJDetc551POZ4 AcDnOTRkteQdwFtwkW2uNqI cZnMyMlxjZjEgVGhlIGludG MimCDyvNM9aH8nER7wGWHkp XWeD3GnXVCfzcSyeGMwOJS6 kZNzjCHyUR8wVGwsxGWli1x zu7FhO7klsIjvzLQ2LR0aGC XvXHHlFWrvw2LfzV6hLmtuL CVzH5IgWGOPI4QKVUAhAMTQ Wh1URiYDHuFoTkNHWb2rKJp NUywgQUZCXHBhclxwYXJkXG RuFHQJc608ek8gQYImoXSvx aCGzOYkfA8fGRojJKuzNBrz rTCvXWyhe6hyCQRjr4g0iTN hNLRtpfJfz9abHNeevdWuUT FteOAmwOKhEQVbe16iZPxut GejuIyuKYEco5IynYppq6Up UoEaJRiva1UuG10glULklGJ koQgwFAYmvlGnWPHrp86ow9 prMKGcPzJ0fTXdjEG7vQGxn PBoq7ShjGzoHFBpd2uiZGHr fa3ccpqvbXPpg1FunU0jlrb pWVvhyYEcmgVsJSKax6j4iH QzWQFyHDFrZTbgjYr0BRQje 767gu2jnwV2sRNgAZK6ECdr YWJsZSBhcmUgZXZhbHVhdGV eJQWxxtMqZACeviLZiQ57ql 0kmKB0g9FmFN5pk2LmoHQ5M WNobmljYWwgdGVzdGluZyB3 GAYvlEPnQy5edDYaFSF3LJM goTmiisTKnC6vIBWnYYc4QE TeNcGbVmwonsGISSKhE6QvJ MUkxuMccdpmAQR9qS0ca3o1 PMffJu5vURMwoumkk9dinwQ fqASbr1AjNTVhafBvs3UmFB IvwjFgaXKhGLGpmvTeiu5rh rBaMIQdTJTuC2NreemzpEkw ojQ0KPRcSVKpiJZqqKmjXEK lRPg4LFrosyBon3TtSyOuig KhmPEqjlBiHI4uTGOlwJWmr uAwULC2XLHuEFSURuAsGUQg y1YwLZ8xFOAdgSmtVGXjpX1 av7WrAHEht83jADLxCIUBMG EgaGFzIGRldGVybWluZWQgd SbkpUPedDDjNCIkEQQqSD0s SQTuttEjqJCgb5NwmMJisiJ ci1GjirEdBTUvSQD8ToQOhO BdoFXlkECxnkJ7z9EmGEHhq vOsjLqbyHWybACpyEKvg6Kw rg1tBNPcp6kgiQchKI5omCI iZSByZWdhcmRlZCBhcyBpbn Ftp1SsR0X2yE4tWOvxa0XzW h8pSEQnw2PuntTnAoYArHhx BBrdWw0gLHQdlshhmHSkC4S ydGlmaWVkIHVuZGVyIHRoZS EJfAyfhYFzfVUPYZBwvfG1l 5F7GRduhVOdvwXfGO41DXMx JT9tdAMxaMHjn8QwBYl1HTQ xM7vWXK18LJevSFRvrCYzuO qddJDjMQCySRJoegUhgn5ik VockXZrs66xkTF9nQX1ZORg nP7gU2PaHXrfXh9bQAIybuw teYNqyNdmRj2vhOBooD== Gross assessment was [facility] performed at ([facility], code = 2777) Department of Pathology, [address] [place] [address], Technical component [facility] was performed at ([facility], code = 2778) Department of Pathology, [address] [place] [address] 59849, Professional component [facility] was performed at ([facility], code = 2779) Department of Pathology, [address] [place] [address], [place] [facility] [id number] 12:37:44 Test Item Value Reference Range Interpretation Comments POC-GLUCOSE METER 98 mg/dL 70-110 : TESTED A T [facility] 6720 (BEAKER) (test code = [facility], 1538) [id number]: [employer] Machine Operator/Techni kelle ID = [id number] for Kathleen sta (contract)[facility] POCT-GLUCOSE [id number] 08:40:16 Test Item Value Reference Range Interpretation Comments POC-GLUCOSE METER 120 mg/dL 70-110 H : TESTED A T [facility] 6720 (BEAKER) (test code = [facility], 1538) [id number]: [employer] Machine Operator/Techni kelle ID = [id number] for Eze (contract), [facility] BASIC METABOLIC [id number] 04:46:57 Test Item Value Reference Range Interpretation [...] S NOT APPLICABLE FOR DIALYSIS PATIEN TS. [employer] Machine Operator ID - HIEN MERAZ, CHEST, 1 VIEW, NON [id number] 04:07:00Reason for exam:->post-opShould this be performed at the bedside?->Yes [facility] : 1955 Sex: FFINAL REPORT RAD, CHEST, 1 VIEW, NON DEPT INDICATION: post-op COMPARISON: Prior day's exam FINDINGS: Portable frontal view of the chest. IMPRESSION: Support Lines: Stable. Lungs and pleura: No interval consolidation or sizable effusion. No pneumothorax. Heart and mediastinum: Stablecontours. Additional findings: None. Signed: Andrew Cary Verified Date/Time: 06/24/2021 04:07:26 [id number] 03:54:16 Test Item Value Reference Range Interpretation Comments PHOSPHORUS (BEAKER) (test code = 4.3 mg/dL 2.3-4.7 604) [employer] Machine Operator ID - HIEN [id number] 03:54:15 Test Item Value Reference Range Interpretation Comments MAGNESIUM (BEAKER) (test code = 2.4 mg/dL 1.6-2.6 627) [employer] Machine Operator ID - HIEN [id number] 03:40:54 Test Item Value Reference Range Interpretation Comments PARTIAL THROMBOPLASTIN TIME 40.8 seconds 22.5-36.0 H (BEAKER) (test code = 760) PROTHROMBIN TIME/[id number] 03:39:49 Test Item Value Reference Range Interpretation Comments PROTIME (BEAKER) 13.1 seconds 11.9-14.2 (test code = 759) INR (BEAKER) (test 1.01 See_Comment [Automat ed message] code = 370) The system [employer] generated this result transmitted ref erence range: [...] WBC 0-0 (test code = 413) POCT-GLUCOSE [id number] 21:07:58 Test Item Value Reference Range Interpretation Comments POC-GLUCOSE METER 143 mg/dL 70-110 H : TESTED [facility] 6720 (BEAKER) (test code = [facility], 1538) [id number]: Paper Products Machine Operator/Techni kelle ID = [id number] for Sheryl Bergeron POCT-GLUCOSE [id number] 16:23:05 Test Item Value Reference Range Interpretation Comments POC-GLUCOSE METER 126 mg/dL 70-110 H : TESTED A T [facility] 6720 (BEAKER) (test code = YUDY Vaca [place], 1538) [address]: Paper Products Machine Operator/Techni kelle ID = [id number] for OSMANY VOGEL BASIC METABOLIC [id number] 13:28:45 Test Item Value Reference Range Interpretation [...] S NOT APPLICABLE FOR DIALYSIS PATIEN TS. Paper Products Machine Operator ID - HIEN MPOCT-GLUCOSE [id number] 11:56:58 Test Item Value Reference Range Interpretation Comments POC-GLUCOSE METER 122 mg/dL 70-110 H : TESTED A T [facility] 6720 (BEAKER) (test code = YUDY Vaca [facility], 1538) [address]: Paper Products Machine Operator/Techni kelle ID = [id number] for OSMANY VOGEL 2D Echo W/Doppler(CW/PW/Color)2021-06-23 08:20:29Ejection FractionSLEH ECHO HEARTLAB [facility]2D Echo W/Doppler(CW/PW/Color)2021-06-23 08:20:29Ejection FractionSLEH ECHO HEARTLAB [facility]2D Echo W/Doppler(CW/PW/Color) 2021-06-23 08:20:29Ejection FractionSLEH ECHO HEARTLAB MKCKESSON [facility]2D Echo W/Doppler(CW/PW/Color)2021-06-23 08:20:29Ejection FractionSLEH ECHO HEARTLAB MKALIDA [facility]2D Echo W/Doppler(CW/PW/Color)2021-06-23 08:20:29Ejection FractionSLEH ECHO HEARTLAB MKPRIYANKA [facility]2D Echo W/Doppler(CW/PW/Color) 2021-06-23 08:20:29Ejection FractionSLEH ECHO HEARTLAB SHANDRA [facility]2D Echo W/Doppler(CW/PW/Color)2021-06-23 08:20:29Ejection FractionSLEH ECHO HEARTLAB GUILLEPRIYANKA [facility]2D Echo W/Doppler(CW/PW/Color)2021-06-23 08:20:29Ejection FractionSLEH ECHO HEARTLAB SHANDRA [facility]2D Echo W/Doppler(CW/PW/Color) 2021-06-23 08:20:29Ejection FractionSLEH ECHO [facility]Do[facility](CW/PW/Color)2021-06-23 08:20:29Ejection FractionSLEH ECHO HEARTLAB GUILLEPRIYANKA [facility]2D Echo W/Doppler(CW/PW/Color)2021-06-23 08:20:29Ejection FractionSLEH ECHO HEARTLAB SHANDRA [facility]2D Echo W/Doppler(CW/PW/Color) 2021-06-23 08:20:29Ejection FractionSLEH ECHO HEARTLAB DERRELLU.[facility]. [facility] W/Doppler(CW/PW/Color)2021-06-23 08:20:29Ejection FractionSLEH ECHO HEARTLAB [facility] W/Doppler(CW/PW/Color)2021-06-23 08:20:29Ejection FractionSLEH ECHO HEARTLAB [facility]ADDU[facility] W/Doppler(CW/PW/Color) 2021-06-23 08:20:29Ejection FractionSLEH ECHO HEARTLAB [facility]2D Echo W/Doppler(CW/PW/Color)2021-06-23 08:20:29Ejection FractionSLEH ECHO [facility]ARTLAB [facility]ington[facility] [id number] 07:43:14 Test Item Value Reference Range Interpretation Comments POC-GLUCOSE METER 111 mg/dL 70-110 H : TESTED A T [facility] 6720 (BEAKER) (test code = YUDY [place], 1538) [address]: Paper Products Machine Operator/Techni kelle ID = [id number] for OSMANY VOGEL BASIC METABOLIC [id number] 05:48:55 Test Item Value Reference Range Interpretation [...] S NOT APPLICABLE FOR DIALYSIS PATIEN TS. Paper Products Machine Operator ID - HIEN [id number] 05:28:52 Test Item Value Reference Range Interpretation Comments PHOSPHORUS (BEAKER) (test code = 3.7 mg/dL 2.3-4.7 604) [employer] Machine Operator ID - HIEN [id number] 05:28:51 Test Item Value Reference Range Interpretation Comments MAGNESIUM (BEAKER) (test code = 2.2 mg/dL 1.6-2.6 627) Paper Products Machine Operator ID - HIEN MRAD, CHEST, 1 VIEW, NON [id number] 05:08:00Reason for exam:->post-opShould this be performed at the bedside?->Yes [facility] 1955 Sex: FFINAL REPORT RAD, CHEST, 1 VIEW, NON DEPT INDICATION: post-op COMPARISON: Prior day's exam FINDINGS: Portable frontal view of the chest. IMPRESSION: Support Lines: Stable. Lungs and pleura: There is improved aeration of both lungs. No new airspace consolidation. No pneumothorax. Heart and mediastinum: Stable contours. Additional findings: None. Signed: Andrew Cary VerifiedDate/Time: 06/23/2021 05:08:22 [id number] 03:01:03 Test Item Value Reference Range Interpretation Comments PARTIAL THROMBOPLASTIN TIME 35.7 seconds 22.5-36.0 (BEAKER) (test code = 760) PROTHROMBIN TIME/[id number] 03:00:01 Test Item Value Reference Range Interpretation Comments PROTIME (BEAKER) 13.3 seconds 11.9-14.2 (test code = 759) INR (BEAKER) (test 1.03 See_Comment [Automat ed message] code = 370) The system Flipzu generated this result transmitted ref erence range: [...] WBC 0-0 (test code = 413) POCT-GLUCOSE [id number] 22:23:22 Test Item Value Reference Range Interpretation Comments POC-GLUCOSE METER 146 mg/dL 70-110 H : TESTED A T [facility] 6720 (BEAKER) (test code = [employer] [facility], 1538) [address]: Paper Products Machine Operator/Techni kelle ID = [id number] for CRISTINA LAM MS POCT-GLUCOSE [id number] 18:28:19 Test Item Value Reference Range Interpretation Comments POC-GLUCOSE METER 101 mg/dL 70-110 : TESTED A T [facility] 6720 (BEAKER) (test code = [employer] [facility], 1538) [address]: Paper Products Machine Operator/Techni kelle ID = [id number] for Tacos rene (contract), Amb er BASIC METABOLIC [id number] 14:57:30 Test Item Value Reference Range Interpretation [...] S NOT APPLICABLE FOR DIALYSIS PATIEN TS. Paper Products Machine Operator ID - AAHAMIDPOCT-GLUCOSE [id number] 12:37:53 Test Item Value Reference Range Interpretation Comments POC-GLUCOSE METER 69 mg/dL 70-110 L : TESTED A T [facility] 6720 (BEAKER) (test code = YUD[place], 1538) [address]: Paper Products Machine Operator/Techni kelle ID = [id number] for Frances knutson (contract), Amb er Oxygen saturation, [id number] 10:49:59 Test Item Value Reference Range Interpretation Comments O2 Saturation (Measured) (test code = 79.8 % 27041-0) [facility] [id number] 10:49:59 Test Item Value Reference Range Interpretation Comments O2 Saturation (Measured) (test code = 79.8 % 28339-8) [facility], [id number] 10:49:59 Test Item Value Reference Range Interpretation Comments O2 Saturation (Measured) (test code = 79.8 % 61348-1) [facility], [id number] 10:49:59 Test Item Value Reference Range Interpretation Comments O2 Saturation (Measured) (test code = 79.8 % 51191-8) [facility], [id number] 10:49:59 Test Item Value Reference Range Interpretation Comments O2 Saturation (Measured) (test code = 79.8 % 61573-4) [facility], [id number] 10:49:59 Test Item Value Reference Range Interpretation Comments O2 Saturation (Measured) (test code = 79.8 % 45080-4) [facility], [id number] 10:49:59 Test Item Value Reference Range Interpretation Comments O2 Saturation (Measured) (test code = 79.8 % 39692-9) [facility], [id number] 10:49:59 Test Item Value Reference Range Interpretation Comments O2 Saturation (Measured) (test code = 79.8 % 63169-2) [facility], [id number] 10:49:59 Test Item Value Reference Range Interpretation Comments O2 Saturation (Measured) (test code = 79.8 % 78365-8) [facility], [id number] 10:49:59 Test Item Value Reference Range Interpretation Comments O2 Saturation (Measured) (test code = 79.8 % 65324-6) [facility], [id number] 10:49:59 Test Item Value Reference Range Interpretation Comments O2 Saturation (Measured) (test code = 79.8 % 01035-4) [facility], [id number] 10:49:59 Test Item Value Reference Range Interpretation Comments O2 Saturation (Measured) (test code = 79.8 % 78934-0) [facility], [id number] 10:49:59 Test Item Value Reference Range Interpretation Comments O2 Saturation (Measured) (test code = 79.8 % 13195-7) [facility], [id number] 10:49:59 Test Item Value Reference Range Interpretation Comments O2 Saturation (Measured) (test code = 79.8 % 95638-6) [facility], [id number] 10:49:59 Test Item Value Reference Range Interpretation Comments O2 Saturation (Measured) (test code = 79.8 % 87154-0) [facility], [id number] 10:49:59 Test Item Value Reference Range Interpretation Comments O2 Saturation (Measured) (test code = 79.8 % 21369-4) [facility] HospitalOXYGEN SATURATION, [id number] 10:49:59 Test Item Value Reference Range Interpretation Comments O2 SATURATION (MEASURED) (BEAKER) 79.8 % (test code = 1455) BASIC METABOLIC [id number] 07:15:45 Test Item Value Reference Range Interpretation [...] S NOT APPLICABLE FOR DIALYSIS PATIEN TS. Paper Products Machine Operator ID - DBRAD, CHEST, 1 VIEW, NON [id number] 03:19:00Reason for exam:->post-opShould this be performed at the bedside?->Yes [facility] 1955 Sex: FFINAL REPORT CLINICAL INDICATION: post-op Comparison: 06/21/2021 The cardiomediastinal contours are stable. The lung volumes remain low. Central pulmonary vascular congestion and bilateral parenchymal opacities are unchanged. There is no pneumothorax. Support lines are stable. Signed: Braxton Quintero MDReport Verified Date/Time: 06/22/2021 03:19:08 BASIC METABOLIC [id number] 02:00:09 Test Item Value Reference Range Interpretation [...] S NOT APPLICABLE FOR DIALYSIS PATIEN TS. Paper Products Machine Operator ID - [id number] 01:57:06 Test Item Value Reference Range Interpretation Comments MAGNESIUM (BEAKER) 2.5 mg/dL 1.6-2.6 Specimen slightly (test code = 627) hemolyzed Paper Products Machine Operator ID - [id number] 01:57:06 Test Item Value Reference Range Interpretation Comments PHOSPHORUS (BEAKER) 5.0 mg/dL 2.3-4.7 H Specimen slightly (test code = 604) hemolyzed Paper Products Machine Operator ID - [id number] 01:54:46 Test Item Value Reference Range Interpretation Comments PARTIAL THROMBOPLASTIN TIME 37.8 seconds 22.5-36.0 H (BEAKER) (test code = 760) PROTHROMBIN TIME/[id number] 01:53:47 Test Item Value Reference Range Interpretation Comments PROTIME (BEAKER) 16.4 seconds 11.9-14.2 H (test code = 759) INR (BEAKER) (test 1.34 See_Comment [Automat ed message] code = 370) The system Flipzu generated this result transmitted ref erence range: [...] WBC 0-0 (test code = 413) POCT-GLUCOSE [id number] 21:22:08 Test Item Value Reference Range Interpretation Comments POC-GLUCOSE METER 73 mg/dL 70-110 : TESTED A T [facility] 6720 (BEAKER) (test code = [facility], 1538) [address]: Paper Products Machine Operator/Techni kelle ID = [id number] for Rodríguez Rojas POCT-GLUCOSE [id number] 19:10:01 Test Item Value Reference Range Interpretation Comments POC-GLUCOSE METER 83 mg/dL 70-110 : TESTED A T [facility] 6720 (BEAKER) (test code = [facility], 1538) [address]: Paper Products Machine Operator/Techni kelle ID = [id number] for HATTIE SALAZAR BASIC METABOLIC [id number] 14:08:36 Test Item Value Reference Range Interpretation [...] S NOT APPLICABLE FOR DIALYSIS PATIEN TS. Paper Products Machine Operator ID - DBPOCT-GLUCOSE [id number] 13:42:11 Test Item Value Reference Range Interpretation Comments POC-GLUCOSE METER 72 mg/dL 70-110 : TESTED A T [facility] 6720 (BEAKER) (test code = [place], 1538) [address]: Paper Products Machine Operator/Techni kelle ID = [id number] for Sun(contract )Katt Surgically obtained culture + gram [id number] 11:46:53 Test Item Value Reference Range Interpretation Comments Result (test code = 6463-4) No growth Gram Stain Result (test No organisms seen code = 1123) [facility] [id number] 11:46:53 Test Item Value Reference Range Interpretation Comments Result (test code = 6463-4) No growth Gram Stain Result (test No organisms seen code = 1123) [facility] + gram [id number] 11:46:53 Test Item Value Reference Range Interpretation Comments Result (test code = 6463-4) No growth Gram Stain Result (test No organisms seen code = 1123) [facility] + gram [id number] 11:46:53 Test Item Value Reference Range Interpretation Comments Result (test code = 6463-4) No growth Gram Stain Result (test No organisms seen code = 1123) [facility] + gram [id number] 11:46:53 Test Item Value Reference Range Interpretation Comments Result (test code = 6463-4) No growth Gram Stain Result (test No organisms seen code = 1123) [facility] + gram [id number] 11:46:53 Test Item Value Reference Range Interpretation Comments Result (test code = 6463-4) No growth Gram Stain Result (test No organisms seen code = 1123) [facility] + gram [id number] 11:46:53 Test Item Value Reference Range Interpretation Comments Result (test code = 6463-4) No growth Gram Stain Result (test No organisms seen code = 1123) [facility] + gram [id number] 11:46:53 Test Item Value Reference Range Interpretation Comments Result (test code = 6463-4) No growth Gram Stain Result (test No organisms seen code = 1123) [facility] + gram [id number] 11:46:53 Test Item Value Reference Range Interpretation Comments Result (test code = 6463-4) No growth Gram Stain Result (test No organisms seen code = 1123) [facility] + gram [id number] 11:46:53 Test Item Value Reference Range Interpretation Comments Result (test code = 6463-4) No growth Gram Stain Result (test No organisms seen code = 1123) [facility] + gram [id number] 11:46:53 Test Item Value Reference Range Interpretation Comments Result (test code = 6463-4) No growth Gram Stain Result (test No organisms seen code = 1123) [facility] [id number] 11:46:53 Test Item Value Reference Range Interpretation Comments Result (test code = 6463-4) No growth Gram Stain Result (test No organisms seen code = 1123) [facility] + gram [id number] 11:46:53 Test Item Value Reference Range Interpretation Comments Result (test code = 6463-4) No growth Gram Stain Result (test No organisms seen code = 1123) [facility] + gram [id number] 11:46:53 Test Item Value Reference Range Interpretation Comments Result (test code = 6463-4) No growth Gram Stain Result (test No organisms seen code = 1123) [facility] + gram [id number] 11:46:53 Test Item Value Reference Range Interpretation Comments Result (test code = 6463-4) No growth Gram Stain Result (test No organisms seen code = 1123) [facility] + gram [id number] 11:46:53 Test Item Value Reference Range Interpretation Comments Result (test code = 6463-4) No growth Gram Stain Result (test No organisms seen code = 1123) [facility] + GRAM [id number] 11:46:53 Test Item Value Reference Range Interpretation Comments CULTURE (BEAKER) (test code No growth = 1095) GRAM STAIN RESULT (BEAKER) 1+ WBCs (test code = 1123) GRAM STAIN RESULT (BEAKER) No organisms seen (test code = 47955) RAD, CHEST, 1 VIEW, NON [id number] 06:05:00Reason for exam:->post-opShould this be performed at the bedside?->Yes [facility] : 1955 Sex: [...] MDReport Verified Date/Time: 06/21/2021 06:05:24 BASIC METABOLIC [id number] 03:54:19 Test Item Value Reference Range Interpretation [...] S NOT APPLICABLE FOR DIALYSIS PATIEN TS. Paper Products Machine Operator ID - [id number] 03:49:06 Test Item Value Reference Range Interpretation Comments PHOSPHORUS (BEAKER) (test code = 4.5 mg/dL 2.3-4.7 604) Paper [employer] Machine Operator ID - [id number] 03:49:05 Test Item Value Reference Range Interpretation Comments MAGNESIUM (BEAKER) (test code = 2.4 mg/dL 1.6-2.6 627) Paper Products Machine Operator ID - DBCBC (HEMOGRAM ONLY)2021-06-21 03:45:10 [...] /100 WBC 0-0 (test code = 413) [id number] 03:45:00 Test Item Value Reference Range Interpretation Comments PARTIAL THROMBOPLASTIN TIME 35.5 seconds 22.5-36.0 (BEAKER) (test code = 760) PROTHROMBIN TIME/[id number] 03:44:22 Test Item Value Reference Range Interpretation Comments PROTIME (BEAKER) 14.1 seconds 11.9-14.2 (test code = 759) INR (BEAKER) (test 1.11 See_Comment [Automat ed message] code = 370) The system Flipzu generated this result transmitted ref erence range: <=5.90. The reference range was not used to int erpret this result as normal/abnormal . RECOMMENDED COUMADIN/WARFARIN INR THERAPY RANGESSTANDARD DOSE: 2.0 - 3.0 Includes: PROPHYLAXIS for venous thrombosis, systemic embolization; TREATMENT for venous thrombosis and/or pulmonary embolus.HIGH RISK: Target INR is 2.5-3.5 for patients with mechanical heart valves.BASIC METABOLIC [id number] 18:24:15 Test Item Value Reference Range Interpretation [...] S NOT APPLICABLE FOR DIALYSIS PATIEN TS. Paper Products Machine Operator ID - PIAYA LPOCT-GLUCOSE [id number] 13:44:48 Test Item Value Reference Range Interpretation Comments POC-GLUCOSE METER 165 mg/dL 70-110 H : TESTED [facility] 6720 (AKASH) (test code = [place], 1538) [address]: Paper Products Machine Operator/Techni kelle ID = [id number] for KOTA ARIAS SARS-CoV2/RT-PCR (Asymptomatic ONLY)2021-06-20 11:58:08 Test Item Value Reference Range Interpretation Comments SARS-COV2/RT-PCR Negative Not Detected, (test code = Negative, See 23600-1) external report for linked test SARS-COV-2 [facility] PERFORMING LAB (test code = 89405-0) BRANDI (test code = Negative result for [...] the Act. Fact Sheet for Healthcare Providers:https://www.qu idel.[employer]/sites/default/f radha/product/documents/F act_Sheet_HC_Providers_L qfa_TBAN-BjF-2.pdf Fact Sheet for Healthcare Patients:https://www.[employer]/sites/default/fi les/product/documents/Fa ct_Sheet_Patients_Ly_S ARS-CoV-2.pdf Performing Laboratory:[facility], [place] [address] [place], [place] [address]ARS-CoV2/RT-PCR (Asymptomatic ONLY)2021-06-20 11:58:08 Test Item Value Reference Range Interpretation Comments SARS-COV2/RT-PCR Negative Not Detected, (test code = Negative, See 58504-0) external report for linked test SARS-COV-2 [facility] PERFORMING LAB (test code = 25484-1) BRANDI (test code = Negative result for [...] of the Act. Fact Sheet for Healthcare Providers:https://www.appMobi/sites/default/f radha/product/documents/F act_Sheet_HC_Providers_L cjn_HURP-ZoX-2.pdf Fact Sheet for Healthcare Patients:https://www.[employer]/sites/default/fi les/product/documents/Fa ct_Sheet_Patients_Lyra_S ARS-CoV-2.pdf Performing Laboratory:[facility] [place] [address] [facility] ([facility])2021-06-20 11:58:08 Test Item Value Reference Range Interpretation Comments SARS-COV2/RT-PCR (test Negative Not Detected, Negative, code = 0947537) See external report for linked test SARS-COV-[address] [facility] AL[facility] (test code = 1356469) Negative result for this test determines that [...] of the Act.Fact Sheet for Healthcare Prov iders:https://www.[employer]/sites/default/files/product/documents/Fact_Sheet_HC _Uvyqcojmn_Ttgd_KAHH-ZlN-5.pdfFact Sheet for Healthcare Patients:https://www.[employer]/sites/default/files/product/docume nts/Quum_Lfapl_Girgcnai_Nqkl_GXSS-PwH-2.pdfPerforming Laboratory:[facility], [place] [address]EYEJ-UKNUCQO METER 2021-06-20 06:30:37 Test Item Value Reference Range Interpretation Comments POC-GLUCOSE METER 145 mg/dL 70-110 H : TESTED A T [facility] 6720 (NABILAKER) (test code [facility], = 1538) [address]: Paper Products Machine Operator/Techni kelle ID = [id number] for Tash wiseman (contract), [place] RAD, CHEST, 1 VIEW, NON [id number] 06:25:00Reason for exam:->post-opShould this be performed at the bedside?->Yes [facility] : 1955 Sex: FFINAL REPORT RAD, CHEST, 1 VIEW, NON DEPT INDICATION: post-op COMPARISON: Prior day's exam FINDINGS: Portable frontal view of the chest. IMPRESSION: Support Lines: Interval extubation. A drainage catheter overlies the upper abdomen and lower hemidiaphragm in the center. Harshaw-Blayne tip overlies the pulmonary outflow tract. Pacer device and sternotomy wires are unchanged. Lungs and pleura: Bilateral effusions and adjacent compressive atelectasis are unchanged No significant pneumothorax. Heart and mediastinum: Normal contours. Additional findings: None. Signed: Bayron Cosme Verified Date/Time: 06/20/2021 06:25:51 [id number] 02:12:20 Test Item Value Reference Range Interpretation Comments PARTIAL THROMBOPLASTIN TIME 35.8 seconds 22.5-36.0 (BEAKER) (test code = 760) PROTHROMBIN TIME/[id number] 02:11:37 Test Item Value Reference Range Interpretation Comments PROTIME (BEAKER) 15.4 seconds 11.9-14.2 H (test code = 759) INR (BEAKER) (test 1.24 See_Comment [Automat ed message] code = 370) The system Flipzu generated this result transmitted ref erence range: <=5.90. The reference range was not used to int erpret this result as normal/abnormal . RECOMMENDED COUMADIN/WARFARIN INR THERAPY RANGESSTANDARD DOSE: 2.0 - 3.0 Includes: PROPHYLAXIS for venous thrombosis, systemic embolization; TREATMENT for venous thrombosis and/or pulmonary embolus.HIGH RISK: Target INR is 2.5-3.5 for patients with mechanical heart valves.BASIC METABOLIC [id number] 02:08:36 Test Item Value Reference Range Interpretation [...] S NOT APPLICABLE FOR DIALYSIS PATIEN TS. Paper Products Machine Operator ID - [id number] 01:57:56 Test Item Value Reference Range Interpretation Comments PHOSPHORUS (BEAKER) (test code = 4.1 mg/dL 2.3-4.7 604) Paper Products Machine Operator ID - [id number] 01:57:55 Test Item Value Reference Range Interpretation Comments MAGNESIUM (BEAKER) (test code = 2.2 mg/dL 1.6-2.6 627) Paper Products Machine Operator ID - DBCBC (HEMOGRAM ONLY)2021-06-20 01:36:09 [...] 0-0 (test code = 413) Blood gas, [id number] 01:27:29 Test Item Value Reference Range Interpretation [...] 28 Lab Interpretation Abnormal (test code = 20674-6) [facility] [id number] 01:27:29 Test Item Value Reference Range Interpretation [...] 28 Lab Interpretation Abnormal (test code = 31618-0) [facility], [id number] 01:27:29 Test Item Value Reference Range Interpretation [...] 28 Lab Interpretation Abnormal (test code = 62806-6) [facility] gas, [id number] 01:27:29 Test Item Value Reference Range Interpretation [...] 28 Lab Interpretation Abnormal (test code = 85180-2) [facility], [id number] 01:27:29 Test Item Value Reference Range Interpretation [...] 28 Lab Interpretation Abnormal (test code = 94314-8) [facility] gas, [id number] 01:27:29 Test Item Value Reference Range Interpretation [...] 28 Lab Interpretation Abnormal (test code = 66437-2) [facility] gas, [id number] 01:27:29 Test Item Value Reference Range Interpretation [...] 28 Lab Interpretation Abnormal (test code = 31701-3) [facility] gas, [id number] 01:27:29 Test Item Value Reference Range Interpretation [...] 28 Lab Interpretation Abnormal (test code = 79943-7) [facility] [id number] 01:27:29 Test Item Value Reference Range Interpretation [...] 28 Lab Interpretation Abnormal (test code = 08631-2) [facility], [id number] 01:27:29 Test Item Value Reference Range Interpretation [...] 28 Lab Interpretation Abnormal (test code = 16146-4) [facility] pexkmdoe7116-84-22 01:27:29 Test Item Value Reference Range Interpretation [...] 28 Lab Interpretation Abnormal (test code = 31861-8) [facility] [id number] 01:27:29 Test Item Value Reference Range Interpretation [...] 28 Lab Interpretation Abnormal (test code = 19162-1) [facility] yawthzon8731-13-89 01:27:29 Test Item Value Reference Range Interpretation [...] 28 Lab Interpretation Abnormal (test code = 98179-7) [facility] [id number] 01:27:29 Test Item Value Reference Range Interpretation [...] 28 Lab Interpretation Abnormal (test code = 61271-0) [facility] xtizqzwx4993-79-60 01:27:29 Test Item Value Reference Range Interpretation [...] 28 Lab Interpretation Abnormal (test code = 25712-2) [facility] [id number] 01:27:29 Test Item Value Reference Range Interpretation [...] 28 Lab Interpretation Abnormal (test code = 15124-0) [facility], [id number] 01:27:29 Test Item Value Reference Range Interpretation [...] (BEAKER) (test code = 1819) 28.0 Calcium, Aneztii9044-28-17 01:26:07 Test Item Value Reference Range Interpretation Comments Calcium, Ion (test code = 1993-06) 1.17 mmol/L 1.12-1.27 pH, Blood (test code = 79339-0) 7.39 [facility], Duhhwdi1940-60-44 01:26:07 Test Item Value Reference Range Interpretation Comments Calcium, Ion (test code = 1993-06) 1.17 mmol/L 1.12-1.27 pH, Blood (test code = 31848-1) 7.39 [facility], Lbbvwxe0597-92-19 01:26:07 Test Item Value Reference Range Interpretation Comments Calcium, Ion (test code = 1993-06) 1.17 mmol/L 1.12-1.27 pH, Blood (test code = 25042-4) 7.39 [facility], Muklane6246-98-21 01:26:07 Test Item Value Reference Range Interpretation Comments Calcium, Ion (test code = 1993-06) 1.17 mmol/L 1.12-1.27 pH, Blood (test code = 67162-1) 7.39 [facility], Icoahcd8957-82-54 01:26:07 Test Item Value Reference Range Interpretation Comments Calcium, Ion (test code = 1993-06) 1.17 mmol/L 1.12-1.27 pH, Blood (test code = 76652-0) 7.39 [facility], Hkowatc2890-35-83 01:26:07 Test Item Value Reference Range Interpretation Comments Calcium, Ion (test code = 1993-06) 1.17 mmol/L 1.12-1.27 pH, Blood (test code = 70294-7) 7.39 [facility], Dlltdrw2921-27-48 01:26:07 Test Item Value Reference Range Interpretation Comments Calcium, Ion (test code = 1993-06) 1.17 mmol/L 1.12-1.27 pH, Blood (test code = 25677-7) 7.39 [facility], Dpibylp4553-40-06 01:26:07 Test Item Value Reference Range Interpretation Comments Calcium, Ion (test code = 1993-06) 1.17 mmol/L 1.12-1.27 pH, Blood (test code = 07876-2) 7.39 [facility], [id number] 01:26:07 Test Item Value Reference Range Interpretation Comments Calcium, Ion (test code = 1993-06) 1.17 mmol/L 1.12-1.27 pH, Blood (test code = 58628-5) 7.39 [facility], Iijqkiy6229-18-54 01:26:07 Test Item Value Reference Range Interpretation Comments Calcium, Ion (test code = 1993-06) 1.17 mmol/L 1.12-1.27 pH, Blood (test code = 88249-6) 7.39 [facility], Dukmfsy9746-30-16 01:26:07 Test Item Value Reference Range Interpretation Comments Calcium, Ion (test code = 1993-06) 1.17 mmol/L 1.12-1.27 pH, Blood (test code = 93892-1) 7.39 [facility] Xitddoc5867-78-51 01:26:07 Test Item Value Reference Range Interpretation Comments Calcium, Ion (test code = 1993-06) 1.17 mmol/L 1.12-1.27 pH, Blood (test code = 74997-6) 7.39 [facility], Lodslwq7381-72-18 01:26:07 Test Item Value Reference Range Interpretation Comments Calcium, Ion (test code = 1993-06) 1.17 mmol/L 1.12-1.27 pH, Blood (test code = 71116-8) 7.39 [facility], Kwaxztg7675-89-37 01:26:07 Test Item Value Reference Range Interpretation Comments Calcium, Ion (test code = 1993-06) 1.17 mmol/L 1.12-1.27 pH, Blood (test code = 53981-2) 7.39 [facility], Krbdmvo1875-84-26 01:26:07 Test Item Value Reference Range Interpretation Comments Calcium, Ion (test code = 1993-06) 1.17 mmol/L 1.12-1.27 pH, Blood (test code = 79762-5) 7.39 [facility], Javhcxi5565-62-89 01:26:07 Test Item Value Reference Range Interpretation Comments Calcium, Ion (test code = 1993-06) 1.17 mmol/L 1.12-1.27 pH, Blood (test code = 55023-2) 7.39 [facility] [id number] 01:26:07 Test Item Value Reference Range Interpretation Comments CALCIUM IONIZED (BEAKER) (test 1.17 mmol/L 1.12-1.27 code = 698) PH, BLOOD (BEAKER) (test code = 7.39 1810) Prepare [id number] 23:55:00 Test Item Value Reference Range Interpretation Comments Unit ABO (test code = 5797965) A Pos UNIT NUMBER (test code = [id number] 934-0) Status (test code = 9675103) TX_TIMEINCHART Blood Bank Product (test code PLATELETS = 2263) PRODUCT CODE (test code = G7174B29 933-2) [facility] [id number] 23:55:00 Test Item Value Reference Range Interpretation Comments Unit ABO (test code = 8426341) A Pos UNIT NUMBER (test code = [id number] 934-0) Status (test code = 4659968) TX_TIMEINCHART Blood Bank Product (test code PLATELETS = 2263) PRODUCT CODE (test code = Z9630X56 933-2) [facility] [id number] 23:55:00 Test Item Value Reference Range Interpretation Comments Unit ABO (test code = 5012117) A Pos UNIT NUMBER (test code = [id number] 934-0) Status (test code = 0802356) TX_TIMEINCHART Blood Bank Product (test code PLATELETS = 2263) PRODUCT CODE (test code = Y6098C81 933-2) [facility] [id number] 23:55:00 Test Item Value Reference Range Interpretation Comments Unit ABO (test code = 6685825) A Pos UNIT NUMBER (test code = [id number] 934-0) Status (test code = 7933500) TX_TIMEINCHART Blood Bank Product (test code PLATELETS = 2263) PRODUCT CODE (test code = R2451I29 933-2) [facility] [id number] 23:55:00 Test Item Value Reference Range Interpretation Comments Unit ABO (test code = 6618810) A Pos UNIT NUMBER (test code = [id number] 934-0) Status (test code = 2110869) TX_TIMEINCHART Blood Bank Product (test code PLATELETS = 2263) PRODUCT CODE (test code = M7103P76 933-2) [facility] [id number] 23:55:00 Test Item Value Reference Range Interpretation Comments Unit ABO (test code = 0827999) A Pos UNIT NUMBER (test code = [id number] 934-0) Status (test code = 8518681) TX_TIMEINCHART Blood Bank Product (test code PLATELETS = 2263) PRODUCT CODE (test code = J4293U76 933-2) [facility] [id number] 23:55:00 Test Item Value Reference Range Interpretation Comments Unit ABO (test code = 8155863) A Pos UNIT NUMBER (test code = [id number] 934-0) Status (test code = 8619981) TX_TIMEINCHART Blood Bank Product (test code PLATELETS = 2263) PRODUCT CODE (test code = X9138L89 933-2) [facility] [id number] 23:55:00 Test Item Value Reference Range Interpretation Comments Unit ABO (test code = 9812052) A Pos UNIT NUMBER (test code = [id number] 934-0) Status (test code = 4215793) TX_TIMEINCHART Blood Bank Product (test code PLATELETS = 2263) PRODUCT CODE (test code = T9943K26 933-2) [facility] [id number] 23:55:00 Test Item Value Reference Range Interpretation Comments Unit ABO (test code = 4147704) A Pos UNIT NUMBER (test code = [id number] 934-0) Status (test code = 2040345) TX_TIMEINCHART Blood Bank Product (test code PLATELETS = 2263) PRODUCT CODE (test code = S8872W49 933-2) [facility] [id number] 23:55:00 Test Item Value Reference Range Interpretation Comments Unit ABO (test code = 0419877) A Pos UNIT NUMBER (test code = [id number] 934-0) Status (test code = 8610811) TX_TIMEINCHART Blood Bank Product (test code PLATELETS = 2263) PRODUCT CODE (test code = Q7721B26 933-2) [facility] [id number] 23:55:00 Test Item Value Reference Range Interpretation Comments Unit ABO (test code = 5265266) A Pos UNIT NUMBER (test code = [id number] 934-0) Status (test code = 9452963) TX_TIMEINCHART Blood Bank Product (test code PLATELETS = 2263) PRODUCT CODE (test code = D8277Z57 933-2) [facility] [id number] 23:55:00 Test Item Value Reference Range Interpretation Comments Unit ABO (test code = 3709209) A Pos UNIT NUMBER (test code = [id number] 934-0) Status (test code = 5799832) TX_TIMEINCHART Blood Bank Product (test code PLATELETS = 2263) PRODUCT CODE (test code = M1190H73 933-2) [facility] [id number] 23:55:00 Test Item Value Reference Range Interpretation Comments Unit ABO (test code = 2886958) A Pos UNIT NUMBER (test code = [id number] 934-0) Status (test code = 5276891) TX_TIMEINCHART Blood Bank Product (test code PLATELETS = 2263) PRODUCT CODE (test code = U2539A18 933-2) [facility] [id number] 23:55:00 Test Item Value Reference Range Interpretation Comments Unit ABO (test code = 5322306) A Pos UNIT NUMBER (test code = [id number] 934-0) Status (test code = 2161473) TX_TIMEINCHART Blood Bank Product (test code PLATELETS = 2263) PRODUCT CODE (test code = L9157C34 933-2) [facility] [id number] 23:55:00 Test Item Value Reference Range Interpretation Comments Unit ABO (test code = 0243382) A Pos UNIT NUMBER (test code = X460154653508 934-0) Status (test code = 1777824) TX_TIMEINCHART Blood Bank Product (test code PLATELETS = 2263) PRODUCT CODE (test code = P5107X08 933-2) [facility] [id number] 23:55:00 Test Item Value Reference Range Interpretation Comments Unit ABO (test code = 2470986) A Pos UNIT NUMBER (test code = [id number] 934-0) Status (test code = 2354135) TX_TIMEINCHART Blood Bank Product (test code PLATELETS = 2263) PRODUCT CODE (test code = C4255L81 933-2) [facility] [id number] 23:54:00 Test Item Value Reference Range Interpretation Comments CROSSMATCH (test code = COMPATIBLE 2264) Unit ABO (test code = O Pos 6380388) UNIT NUMBER (test code = [id number] 934-0) Status (test code = RETURNED FROM ISSUE 15100613) Blood Bank Product (test RED BLOOD CELLS code = 2263) PRODUCT CODE (test code = M2458D18 933-2) [facility] [id number] 23:54:00 Test Item Value Reference Range Interpretation Comments CROSSMATCH (test code = COMPATIBLE 2264) Unit ABO (test code = O Pos 5909714) UNIT NUMBER (test code = [id number] 934-0) Status (test code = RETURNED FROM ISSUE 9831345) Blood Bank Product (test RED BLOOD CELLS code = 2263) PRODUCT CODE (test code = N4055C76 933-2) [facility] [id number] 23:54:00 Test Item Value Reference Range Interpretation Comments CROSSMATCH (test code = COMPATIBLE 2264) Unit ABO (test code = O Pos 0652952) UNIT NUMBER (test code = [id number] 934-0) Status (test code = RETURNED FROM ISSUE 15100613) Blood Bank Product (test RED BLOOD CELLS code = 2263) PRODUCT CODE (test code = R0201O18 933-2) [facility] [id number] 23:54:00 Test Item Value Reference Range Interpretation Comments CROSSMATCH (test code = COMPATIBLE 2264) Unit ABO (test code = O Pos 0821091) UNIT NUMBER (test code = [id number] 934-0) Status (test code = RETURNED FROM ISSUE 15100613) Blood Bank Product (test RED BLOOD CELLS code = 2263) PRODUCT CODE (test code = E1090N36 933-2) [facility] [id number] 23:54:00 Test Item Value Reference Range Interpretation Comments CROSSMATCH (test code = COMPATIBLE 2264) Unit ABO (test code = O Pos 5491023) UNIT NUMBER (test code = [id number] 934-0) Status (test code = RETURNED FROM ISSUE 15100613) Blood Bank Product (test RED BLOOD CELLS code = 2263) PRODUCT CODE (test code = N1801S94 933-2) [facility] [id number] 23:54:00 Test Item Value Reference Range Interpretation Comments CROSSMATCH (test code = COMPATIBLE 2264) Unit ABO (test code = O Pos 1853186) UNIT NUMBER (test code = [id number] 934-0) Status (test code = RETURNED FROM ISSUE 15100613) Blood Bank Product (test RED BLOOD CELLS code = 2263) PRODUCT CODE (test code = K5884T58 933-2) [facility] [id number] 23:54:00 Test Item Value Reference Range Interpretation Comments CROSSMATCH (test code = COMPATIBLE 2264) Unit ABO (test code = O Pos 1471180) UNIT NUMBER (test code = [id number] 934-0) Status (test code = RETURNED FROM ISSUE 15100613) Blood Bank Product (test RED BLOOD CELLS code = 2263) PRODUCT CODE (test code = L6709G27 933-2) [facility] [id number] 23:54:00 Test Item Value Reference Range Interpretation Comments CROSSMATCH (test code = COMPATIBLE 2264) Unit ABO (test code = O Pos 6931092) UNIT NUMBER (test code = [id number] 934-0) Status (test code = RETURNED FROM ISSUE 15100613) Blood Bank Product (test RED BLOOD CELLS code = 2263) PRODUCT CODE (test code = V3396H32 933-2) [facility] [id number] 23:54:00 Test Item Value Reference Range Interpretation Comments CROSSMATCH (test code = COMPATIBLE 2264) Unit ABO (test code = O Pos 2799711) UNIT NUMBER (test code = B700862442672 934-0) Status (test code = RETURNED FROM ISSUE 15100613) Blood Bank Product (test RED BLOOD CELLS code = 2263) PRODUCT CODE (test code = U8973P29 933-2) [facility] [id number] 23:54:00 Test Item Value Reference Range Interpretation Comments CROSSMATCH (test code = COMPATIBLE 2264) Unit ABO (test code = O Pos 7343389) UNIT NUMBER (test code = [id number] 934-0) Status (test code = RETURNED FROM ISSUE 15100613) Blood Bank Product (test RED BLOOD CELLS code = 2263) PRODUCT CODE (test code = Y2943W08 933-2) [facility]2022-03-18 23:54:00 Test Item Value Reference Range Interpretation Comments CROSSMATCH (test code = COMPATIBLE 2264) Unit ABO (test code = O Pos 0214735) UNIT NUMBER (test code = B494283627037 934-0) Status (test code = RETURNED FROM ISSUE 15100613) Blood Bank Product (test RED BLOOD CELLS code = 2263) PRODUCT CODE (test code = O2787G56 933-2) [facility]2022-03-18 23:54:00 Test Item Value Reference Range Interpretation Comments CROSSMATCH (test code = COMPATIBLE 2264) Unit ABO (test code = O Pos 2801294) UNIT NUMBER (test code = I710903138339 934-0) Status (test code = RETURNED FROM ISSUE 15100613) Blood Bank Product (test RED BLOOD CELLS code = 2263) PRODUCT CODE (test code = E6816E48 933-2) [facility]2022-03-18 23:54:00 Test Item Value Reference Range Interpretation Comments CROSSMATCH (test code = COMPATIBLE 2264) Unit ABO (test code = O Pos 5649324) UNIT NUMBER (test code = E140160100190 934-0) Status (test code = RETURNED FROM ISSUE 15100613) Blood Bank Product (test RED BLOOD CELLS code = 2263) PRODUCT CODE (test code = V4150S51 933-2) [facility] [id number] 23:54:00 Test Item Value Reference Range Interpretation Comments CROSSMATCH (test code = COMPATIBLE 2264) Unit ABO (test code = O Pos 9825034) UNIT NUMBER (test code = W613824308456 934-0) Status (test code = RETURNED FROM ISSUE 15100613) Blood Bank Product (test RED BLOOD CELLS code = 2263) PRODUCT CODE (test code = B6462D68 933-2) [facility] [id number] 23:54:00 Test Item Value Reference Range Interpretation Comments CROSSMATCH (test code = COMPATIBLE 2264) Unit ABO (test code = O Pos 9456631) UNIT NUMBER (test code = [id number] 934-0) Status (test code = RETURNED FROM ISSUE 15100613) Blood Bank Product (test RED BLOOD CELLS code = 2263) PRODUCT CODE (test code = N7708S87 933-2) [facility] [id number] 23:54:00 Test Item Value Reference Range Interpretation Comments CROSSMATCH (test code = COMPATIBLE 2264) Unit ABO (test code = O Pos 2711881) UNIT NUMBER (test code = [id number] 934-0) Status (test code = RETURNED FROM ISSUE 15100613) Blood Bank Product (test RED BLOOD CELLS code = 2263) PRODUCT CODE (test code = X7340L61 933-2) [facility] [id number] 22:04:29 Test Item Value Reference Range Interpretation [...] S NOT APPLICABLE FOR DIALYSIS PATIEN TS. [employer] Machine Operator ID - [id number] 22:03:41 Test Item Value Reference Range Interpretation Comments PHOSPHORUS (BEAKER) (test code = 4.3 mg/dL 2.3-4.7 604) [employer] Machine Operator ID - [id number] 22:03:40 Test Item Value Reference Range Interpretation Comments MAGNESIUM (BEAKER) (test code = 2.2 mg/dL 1.6-2.6 627) [employer] Machine Operator ID - DBpH, [id number] 21:40:14 Test Item Value Reference Range Interpretation Comments pH, Arterial (test code = 2744-1) 7.37 7.35-7.45 Lab Interpretation (test code = Normal 99208-4) [facility] teejcgbq1556-41-83 21:40:14 Test Item Value Reference Range Interpretation Comments pH, Arterial (test code = 2744-1) 7.37 7.35-7.45 Lab Interpretation (test code = Normal 29874-6) [facility], [id number] 21:40:14 Test Item Value Reference Range Interpretation Comments pH, Arterial (test code = 2744-1) 7.37 7.35-7.45 Lab Interpretation (test code = Normal 26582-6) [facility] nhmfvmfi5562-46-58 21:40:14 Test Item Value Reference Range Interpretation Comments pH, Arterial (test code = 2744-1) 7.37 7.35-7.45 Lab Interpretation (test code = Normal 40604-2) [facility] [id number] 21:40:14 Test Item Value Reference Range Interpretation Comments pH, Arterial (test code = 2744-1) 7.37 7.35-7.45 Lab Interpretation (test code = Normal 71276-4) [facility] idpjjmbu0114-48-06 21:40:14 Test Item Value Reference Range Interpretation Comments pH, Arterial (test code = 2744-1) 7.37 7.35-7.45 Lab Interpretation (test code = Normal 05021-6) [facility]2022-03-18 21:40:14 Test Item Value Reference Range Interpretation Comments pH, Arterial (test code = 2744-1) 7.37 7.35-7.45 Lab Interpretation (test code = Normal 63631-6) [facility]2022-03-18 21:40:14 Test Item Value Reference Range Interpretation Comments pH, Arterial (test code = 2744-1) 7.37 7.35-7.45 Lab Interpretation (test code = Normal 24846-3) [facility]2022-03-18 21:40:14 Test Item Value Reference Range Interpretation Comments pH, Arterial (test code = 2744-1) 7.37 7.35-7.45 Lab Interpretation (test code = Normal 40593-9) [facility]2022-03-18 21:40:14 Test Item Value Reference Range Interpretation Comments pH, Arterial (test code = 2744-1) 7.37 7.35-7.45 Lab Interpretation (test code = Normal 04127-1) [facility]2022-03-18 21:40:14 Test Item Value Reference Range Interpretation Comments pH, Arterial (test code = 2744-1) 7.37 7.35-7.45 Lab Interpretation (test code = Normal 16859-7) [facility]2022-03-18 21:40:14 Test Item Value Reference Range Interpretation Comments pH, Arterial (test code = 2744-1) 7.37 7.35-7.45 Lab Interpretation (test code = Normal 52149-9) [facility]2022-03-18 21:40:14 Test Item Value Reference Range Interpretation Comments pH, Arterial (test code = 2744-1) 7.37 7.35-7.45 Lab Interpretation (test code = Normal 05829-4) [facility], gvvtdvwf6331-64-44 21:40:14 Test Item Value Reference Range Interpretation Comments pH, Arterial (test code = 2744-1) 7.37 7.35-7.45 Lab Interpretation (test code = Normal 17940-6) [facility], tfcedfhd4137-07-94 21:40:14 Test Item Value Reference Range Interpretation Comments pH, Arterial (test code = 2744-1) 7.37 7.35-7.45 Lab Interpretation (test code = Normal 77063-2) [facility], xqmhhzlj0149-32-24 21:40:14 Test Item Value Reference Range Interpretation Comments pH, Arterial (test code = 2744-1) 7.37 7.35-7.45 Lab Interpretation (test code = Normal 88099-4) [facility], [id number] 21:40:14 Test Item Value Reference Range Interpretation Comments PH ARTERIAL (BEAKER) (test code = 383) 7.37 7.35-7.45 POCT-GLUCOSE [id number] 18:07:04 Test Item Value Reference Range Interpretation Comments POC-GLUCOSE METER 208 mg/dL 70-110 H : TESTED A T [facility] 6720 (BEAKER) (test code = YUDY WHITE AL, 1538) 05406: [employer] Machine Operator/Techni kelle ID = [id number] for Chilo Mccarty BLOOD GAS, [id number] 12:45:46 Test Item Value Reference Range Interpretation [...] (test code = 1819) 36.0 BLOOD GAS, [id number] 11:23:57 Test Item Value Reference Range Interpretation [...] FIO2 (BEAKER) (test code = 1819) 40.0 oqsbu3453-27-07 09:37:11 Test Item Value Reference Range Interpretation Comments Scan Result (test code = See scanned report [id number]) BRANDI (test code = BRANDI) See scanned report [place] 37126022-03-18 09:37:11 Test Item Value Reference Range Interpretation Comments Scan Result (test code = See scanned report [id number]) BRANDI (test code = BRANDI) See scanned report [place] 37126022-03-18 09:37:11 Test Item Value Reference Range Interpretation Comments Scan Result (test code = See scanned report [id number]) BRANDI (test code = BRANDI) See scanned report [place] 37126022-03-18 09:37:11 Test Item Value Reference Range Interpretation Comments Scan Result (test code = See scanned report [id number]) BRANDI (test code = BRANDI) See scanned report [place] 671182-03-18 09:37:11 Test Item Value Reference Range Interpretation Comments Scan Result (test code = See scanned report [id number]) BRANDI (test code = BRANDI) See scanned report [place] 37126022-03-18 09:37:11 Test Item Value Reference Range Interpretation Comments Scan Result (test code = See scanned report [id number]) BRANDI (test code = BRANDI) See scanned report [place] 671182-03-18 09:37:11 Test Item Value Reference Range Interpretation Comments Scan Result (test code = See scanned report [id number]) BRANDI (test code = BRANDI) See scanned report [place] 37126022-03-18 09:37:11 Test Item Value Reference Range Interpretation Comments Scan Result (test code = See scanned report [id number]) BRANDI (test code = BRANDI) See scanned report [place] 37126022-03-18 09:37:11 Test Item Value Reference Range Interpretation Comments Scan Result (test code = See scanned report [id number]) BRANDI (test code = BRANDI) See scanned report [place] 37126022-03-18 09:37:11 Test Item Value Reference Range Interpretation Comments Scan Result (test code = See scanned report [id number]) BRANDI (test code = BRANDI) See scanned report [place] 37126022-03-18 09:37:11 Test Item Value Reference Range Interpretation Comments Scan Result (test code = See scanned report [id number]) BRANDI (test code = BRANDI) See scanned report [place] 37126022-03-18 09:37:11 Test Item Value Reference Range Interpretation Comments Scan Result (test code = See scanned report [id number]) BRANDI (test code = BRANDI) See scanned report [place] 37126022-03-18 09:37:11 Test Item Value Reference Range Interpretation Comments Scan Result (test code = See scanned report [id number]) BRANDI (test code = BRANDI) See scanned report [place] 37126022-03-18 09:37:11 Test Item Value Reference Range Interpretation Comments Scan Result (test code = See scanned report [id number]) BRANDI (test code = BRANDI) See scanned report [place] [id number] 09:37:11 Test Item Value Reference Range Interpretation Comments Scan Result (test code = See scanned report [id number]) BRANDI (test code = BRANDI) See scanned report [place] [id number] 09:37:11 Test Item Value Reference Range Interpretation Comments Scan Result (test code = See scanned report [id number]) BRANDI (test code = BRANDI) See scanned report [facility] [id number] 09:37:11 Test Item Value Reference Range Interpretation Comments SCAN RESULT (test code = See scanned report [id number]) See scanned reportPOCT-GLUCOSE [id number] 08:52:16 Test Item Value Reference Range Interpretation Comments POC-GLUCOSE METER 165 mg/dL 70-110 H : TESTED A T [facility] 6720 (BEAKER) (test code = [place], 1538) [address]: [employer] Products Machine Operator/Techni kelle ID = [id number] for Chilo Mccarty RAD, CHEST, 1 VIEW, NON [id number] 04:10:00Reason for exam:->post-opShould this be performed at the bedside?->Yes [facility] 1955 Sex: FFINAL REPORT RAD, CHEST, 1 VIEW, NON DEPT INDICATION: post-op COMPARISON: Prior day's exam FINDINGS: Portable frontal view of the chest. IMPRESSION: Support Lines: Stable Lungs and pleura: Unchanged central venous congestion. No new consolidation or effusion. No pneumothorax. Heart and mediastinum: Stable contours. Additional findings: None. Signed: Andrew Cary Verified Date/Time: 06/19/2021 04:10:04 BASIC METABOLIC [id number] 03:27:20 Test Item Value Reference Range Interpretation [...] S NOT APPLICABLE FOR DIALYSIS PATIEN TS. [employer] Machine Operator ID Bassam [place] [id number] 03:26:39 Test Item Value Reference Range Interpretation Comments MAGNESIUM (BEAKER) (test code = 2.4 mg/dL 1.6-2.6 627) [employer] Machine Operator ID Bassam [place] [id number] 03:26:39 Test Item Value Reference Range Interpretation Comments PHOSPHORUS (BEAKER) (test code = 4.8 mg/dL 2.3-4.7 H 604) [employer] Machine Operator ID Bassam [place] [id number] 03:02:29 Test Item Value Reference Range Interpretation Comments PARTIAL THROMBOPLASTIN TIME 35.4 seconds 22.5-36.0 (BEAKER) (test code = 760) PROTHROMBIN [id number] 03:01:50 Test Item Value Reference Range Interpretation Comments PROTIME (BEAKER) 16.0 seconds 11.9-14.2 H (test code = 759) INR (BEAKER) (test 1.31 See_Comment [Automat ed message] code = 370) The system Flipzu generated this result transmitted ref erence range: [...] 0-0 (test code = 413) OXYGEN SATURATION, [id number] 02:28:43 Test Item Value Reference Range Interpretation Comments O2 SATURATION (MEASURED) (BEAKER) 79.3 % (test code = 1455) BLOOD GAS, [id number] 02:25:53 Test Item Value Reference Range Interpretation [...] (BEAKER) (test code = 1819) 40.0 POCT-GLUCOSE [id number] 00:06:42 Test Item Value Reference Range Interpretation Comments POC-GLUCOSE METER 88 mg/dL 70-110 : TESTED A T [facility] 6720 (BEAKER) (test code = [facility], [facility]8) [address]: Paper Products Machine Operator/Techni kelle ID = [id number] for JUGU ILON (V), ERICK POCT-GLUCOSE [id number] 23:14:53 Test Item Value Reference Range Interpretation Comments POC-GLUCOSE METER 91 mg/dL 70-110 : TESTED A T [facility] 6720 (BEAKER) (test code = [facility], [facility]8) [address]: [employer] Machine Operator/Techni kelle ID = [id number] for JUGU ILON (V), ERICK POCT-GLUCOSE [id number] 21:30:27 Test Item Value Reference Range Interpretation Comments POC-GLUCOSE METER 128 mg/dL 70-110 H : TESTED A T [facility] 6720 (BEAKER) (test code = [facility], 1538) [address]: [employer] Machine Operator/Techni kelle ID = [id number] for JU GUILON (V), ERICK POCT-GLUCOSE [id number] 19:05:18 Test Item Value Reference Range Interpretation Comments POC-GLUCOSE METER 165 mg/dL 70-110 H : TESTED A T [facility] 6720 (BEAKER) (test code = [facility], [facility]8) 04[address]: [employer] Machine Operator/Techni kelle ID = [id number] for JA COB, JESMI BASIC METABOLIC [id number] 18:47:16 Test Item Value Reference Range Interpretation [...] S NOT APPLICABLE FOR DIALYSIS PATIEN TS. [employer] Machine Operator ID - HIEN [id number] 18:44:55 Test Item Value Reference Range Interpretation Comments MAGNESIUM (BEAKER) (test code = 2.5 mg/dL 1.6-2.6 627) [employer] Machine Operator ID - HIEN [id number] 18:44:55 Test Item Value Reference Range Interpretation Comments PHOSPHORUS (BEAKER) (test code = 4.7 mg/dL 2.3-4.7 604) [employer] Machine Operator ID - HIEN MBLOOD GAS, [id number] 18:43:01 Test Item Value Reference Range Interpretation [...] (test code = 1819) 60.0 OXYGEN SATURATION, [id number] 18:40:36 Test Item Value Reference Range Interpretation Comments O2 SATURATION (MEASURED) (BEAKER) 90.5 % (test code = 1455) Lactic Acid, [id number] 18:40:35 Test Item Value Reference Range Interpretation Comments Lactate, Art (test code = 2.1 mmol/L 0.5-2.2 2874) BRANDI (test code = BRANDI) [employer] Machine Operator ID - HIEN M Lab Interpretation (test Normal code = 76696-7) [facility] [id number] 18:40:35 Test Item Value Reference Range Interpretation Comments Lactate, Art (test code = 2.1 mmol/L 0.5-2.2 2874) BRANDI (test code = BRANDI) [employer] Machine Operator ID - HIEN M Lab Interpretation (test Normal code = 01663-7) [facility], [id number] 18:40:35 Test Item Value Reference Range Interpretation Comments Lactate, Art (test code = 2.1 mmol/L 0.5-2.2 2874) BRANDI (test code = BRANDI) [employer] Machine Operator ID - HIEN M Lab Interpretation (test Normal code = 85676-1) [facility], [id number] 18:40:35 Test Item Value Reference Range Interpretation Comments Lactate, Art (test code = 2.1 mmol/L 0.5-2.2 2874) BRANDI (test code = BRANDI) [employer] Machine Operator ID - HIEN M Lab Interpretation (test Normal code = 65296-2) [facility], [id number] 18:40:35 Test Item Value Reference Range Interpretation Comments Lactate, Art (test code = 2.1 mmol/L 0.5-2.2 2874) BRANDI (test code = BRANDI) [employer] Machine Operator ID - HIEN M Lab Interpretation (test Normal code = 54111-1) [facility], [id number] 18:40:35 Test Item Value Reference Range Interpretation Comments Lactate, Art (test code = 2.1 mmol/L 0.5-2.2 2874) BRANDI (test code = BRANDI) [employer] Machine Operator ID - HIEN M Lab Interpretation (test Normal code = 47617-2) [facility], [id number] 18:40:35 Test Item Value Reference Range Interpretation Comments Lactate, Art (test code = 2.1 mmol/L 0.5-2.2 2874) BRANDI (test code = BRANDI) [employer] Machine Operator ID - HIEN M Lab Interpretation (test Normal code = 36072-8) [facility], [id number] 18:40:35 Test Item Value Reference Range Interpretation Comments Lactate, Art (test code = 2.1 mmol/L 0.5-2.2 2874) BRANDI (test code = BRANDI) [employer] Machine Operator ID - HIEN Lab Interpretation (test Normal code = 42994-6) [facility], [id number] 18:40:35 Test Item Value Reference Range Interpretation Comments Lactate, Art (test code = 2.1 mmol/L 0.5-2.2 2874) BRANDI (test code = BRANDI) Paper Products Machine Operator ID - [facility] Lab Interpretation (test Normal code = 91707-7) [facility], [id number] 18:40:35 Test Item Value Reference Range Interpretation Comments Lactate, Art (test code = 2.1 mmol/L 0.5-2.2 2874) BRANDI (test code = BRANDI) Paper [employer] Machine Operator ID - [facility] Lab Interpretation (test Normal code = 37349-9) [facility], [id number] 18:40:35 Test Item Value Reference Range Interpretation Comments Lactate, Art (test code = 2.1 mmol/L 0.5-2.2 2874) BRANDI (test code = BRANDI) Paper [employer] Machine Operator ID - [facility] Lab Interpretation (test Normal code = 97473-3) [facility], [id number] 18:40:35 Test Item Value Reference Range Interpretation Comments Lactate, Art (test code = 2.1 mmol/L 0.5-2.2 2874) BRANDI (test code = BRANDI) [employer] Machine Operator ID - HIEN Lab Interpretation (test Normal code = 89662-4) [facility], [id number] 18:40:35 Test Item Value Reference Range Interpretation Comments Lactate, Art (test code = 2.1 mmol/L 0.5-2.2 2874) BRANDI (test code = BRANDI) [employer] Machine Operator ID - HIEN Lab Interpretation (test Normal code = 38720-5) [facility], [id number] 18:40:35 Test Item Value Reference Range Interpretation Comments Lactate, Art (test code = 2.1 mmol/L 0.5-2.2 2874) BRANDI (test code = BRANDI) [employer] Machine Operator ID - HIEN M Lab Interpretation (test Normal code = 30429-4) [facility], [id number] 18:40:35 Test Item Value Reference Range Interpretation Comments Lactate, Art (test code = 2.1 mmol/L 0.5-2.2 2874) BRANDI (test code = BRANDI) [employer] Machine Operator ID - HIEN M Lab Interpretation (test Normal code = 76824-4) [facility], [id number] 18:40:35 Test Item Value Reference Range Interpretation Comments Lactate, Art (test code = 2.1 mmol/L 0.5-2.2 2874) BRANDI (test code = BRANDI) [employer] Machine Operator ID - HIEN M Lab Interpretation (test Normal code = 77905-2) [facility]LA[facility] ACID, [id number] 18:40:35 Test Item Value Reference Range Interpretation Comments LACTATE BLOOD ARTERIAL (2) 2.1 mmol/L 0.5-2.2 (BEAKER) (test code = 2874) Paper [employer] Machine Operator ID - HIEN [id number] 18:38:33 Test Item Value Reference Range Interpretation Comments PARTIAL THROMBOPLASTIN TIME 37.2 seconds 22.5-36.0 H (BEAKER) (test code = 760) PROTHROMBIN TIME/[id number] 18:37:33 Test Item Value Reference Range Interpretation Comments PROTIME (BEAKER) 16.6 seconds 11.9-14.2 H (test code = 759) INR (BEAKER) (test 1.37 See_Comment [Automat ed message] code = 370) The system Flipzu generated this result transmitted ref erence range: [...] 0-0 (test code = 413) HGB/HCT (H&H)-Stat [id number] 16:13:19 Test Item Value Reference Range Interpretation Comments Hemoglobin (test code = 10.6 See_Comment L [Au tomated message] 786-4) The system Flipzu generated this result transmitted ref erence range: 12.0 - 1 5.0 GM/DL. The refe rence range was not u sed to interpret this result as normal/abnor mal. Hematocrit (test code = 31.0 % 36.0-45.0 L 4544-3) Lab Interpretation (test Abnormal code = 75385-9) [facility]Stat [id number] 16:13:19 Test Item Value Reference Range Interpretation Comments Hemoglobin (test code = 10.6 See_Comment L [Au tomated message] 786-4) The system Flipzu generated this result transmitted ref erence range: 12.0 - 1 5.0 GM/DL. The refe rence range was not u sed to interpret this result as normal/abnor mal. Hematocrit (test code = 31.0 % 36.0-45.0 L 4544-3) Lab Interpretation (test Abnormal code = 03584-3) [facility] [id number] 16:13:19 Test Item Value Reference Range Interpretation Comments Hemoglobin (test code = 10.6 See_Comment L [Au tomated message] 786-4) The system Flipzu generated this result transmitted ref erence range: 12.0 - 1 5.0 GM/DL. The refe rence range was not u sed to interpret this result as normal/abnor mal. Hematocrit (test code = 31.0 % 36.0-45.0 L 4544-3) Lab Interpretation (test Abnormal code = 27462-3) [facility]Stat [id number] 16:13:19 Test Item Value Reference Range Interpretation Comments Hemoglobin (test code = 10.6 See_Comment L [Au tomated message] 786-4) The system Flipzu generated this result transmitted ref erence range: 12.0 - 1 5.0 GM/DL. The refe rence range was not u sed to interpret this result as normal/abnor mal. Hematocrit (test code = 31.0 % 36.0-45.0 L 4544-3) Lab Interpretation (test Abnormal code = 91510-0) [facility]Stat [id number] 16:13:19 Test Item Value Reference Range Interpretation Comments Hemoglobin (test code = 10.6 See_Comment L [Au tomated message] 786-4) The system Flipzu generated this result transmitted ref erence range: 12.0 - 1 5.0 GM/DL. The refe rence range was not u sed to interpret this result as normal/abnor mal. Hematocrit (test code = 31.0 % 36.0-45.0 L 4544-3) Lab Interpretation (test Abnormal code = 90973-4) [facility]Stat [id number] 16:13:19 Test Item Value Reference Range Interpretation Comments Hemoglobin (test code = 10.6 See_Comment L [Au tomated message] 786-4) The system Flipzu generated this result transmitted ref erence range: 12.0 - 1 5.0 GM/DL. The refe rence range was not u sed to interpret this result as normal/abnor mal. Hematocrit (test code = 31.0 % 36.0-45.0 L 4544-3) Lab Interpretation (test Abnormal code = 21547-3) [facility]Stat [id number] 16:13:19 Test Item Value Reference Range Interpretation Comments Hemoglobin (test code = 10.6 See_Comment L [Au tomated message] 786-4) The system Flipzu generated this result transmitted ref erence range: 12.0 - 1 5.0 GM/DL. The refe rence range was not u sed to interpret this result as normal/abnor mal. Hematocrit (test code = 31.0 % 36.0-45.0 L 4544-3) Lab Interpretation (test Abnormal code = 89558-9) [facility]Stat [id number] 16:13:19 Test Item Value Reference Range Interpretation Comments Hemoglobin (test code = 10.6 See_Comment L [Au tomated message] 786-4) The system Flipzu generated this result transmitted ref erence range: 12.0 - 1 5.0 GM/DL. The refe rence range was not u sed to interpret this result as normal/abnor mal. Hematocrit (test code = 31.0 % 36.0-45.0 L 4544-3) Lab Interpretation (test Abnormal code = 55396-5) [facility]Stat [id number] 16:13:19 Test Item Value Reference Range Interpretation Comments Hemoglobin (test code = 10.6 See_Comment L [Au tomated message] 786-4) The system Flipzu generated this result transmitted ref erence range: 12.0 - 1 5.0 GM/DL. The refe rence range was not u sed to interpret this result as normal/abnor mal. Hematocrit (test code = 31.0 % 36.0-45.0 L 4544-3) Lab Interpretation (test Abnormal code = 53980-1) [facility]Stat [id number] 16:13:19 Test Item Value Reference Range Interpretation Comments Hemoglobin (test code = 10.6 See_Comment L [Au tomated message] 786-4) The system Flipzu generated this result transmitted ref erence range: 12.0 - 1 5.0 GM/DL. The refe rence range was not u sed to interpret this result as normal/abnor mal. Hematocrit (test code = 31.0 % 36.0-45.0 L 4544-3) Lab Interpretation (test Abnormal code = 36065-6) [facility]Stat [id number] 16:13:19 Test Item Value Reference Range Interpretation Comments Hemoglobin (test code = 10.6 See_Comment L [Au tomated message] 786-4) The system Flipzu generated this result transmitted ref erence range: 12.0 - 1 5.0 GM/DL. The refe rence range was not u sed to interpret this result as normal/abnor mal. Hematocrit (test code = 31.0 % 36.0-45.0 L 4544-3) Lab Interpretation (test Abnormal code = 42506-4) [facility]Stat [id number] 16:13:19 Test Item Value Reference Range Interpretation Comments Hemoglobin (test code = 10.6 See_Comment L [Au tomated message] 786-4) The system Flipzu generated this result transmitted ref erence range: 12.0 - 1 5.0 GM/DL. The refe rence range was not u sed to interpret this result as normal/abnor mal. Hematocrit (test code = 31.0 % 36.0-45.0 L 4544-3) Lab Interpretation (test Abnormal code = 27899-2) [facility] [id number] 16:13:19 Test Item Value Reference Range Interpretation Comments Hemoglobin (test code = 10.6 See_Comment L [Au tomated message] 786-4) The system Flipzu generated this result transmitted ref erence range: 12.0 - 1 5.0 GM/DL. The refe rence range was not u sed to interpret this result as normal/abnor mal. Hematocrit (test code = 31.0 % 36.0-45.0 L 4544-3) Lab Interpretation (test Abnormal code = 11214-6) [facility]Stat [id number] 16:13:19 Test Item Value Reference Range Interpretation Comments Hemoglobin (test code = 10.6 See_Comment L [Au tomated message] 786-4) The system Flipzu generated this result transmitted ref erence range: 12.0 - 1 5.0 GM/DL. The refe rence range was not u sed to interpret this result as normal/abnor mal. Hematocrit (test code = 31.0 % 36.0-45.0 L 4544-3) Lab Interpretation (test Abnormal code = 59574-4) [facility]Stat [id number] 16:13:19 Test Item Value Reference Range Interpretation Comments Hemoglobin (test code = 10.6 See_Comment L [Au tomated message] 786-4) The system Flipzu generated this result transmitted ref erence range: 12.0 - 1 5.0 GM/DL. The refe rence range was not u sed to interpret this result as normal/abnor mal. Hematocrit (test code = 31.0 % 36.0-45.0 L 4544-3) Lab Interpretation (test Abnormal code = 89400-7) [facility]Stat [id number] 16:13:19 Test Item Value Reference Range Interpretation Comments Hemoglobin (test code = 10.6 See_Comment L [Au tomated message] 786-4) The system Flip[employer] generated this result transmitted ref erence range: 12.0 - 1 5.0 GM/DL. The refe rence range was not u sed to interpret this result as normal/abnor mal. Hematocrit (test code = 31.0 % 36.0-45.0 L 4544-3) Lab Interpretation (test Abnormal code = 24166-8) [facility] - STAT [id number] 16:13:19 Test Item Value Reference Range Interpretation Comments HEMOGLOBIN (BEAKER) (test code = 10.6 GM/DL 12.0-15.0 L 410) HEMATOCRIT (BEAKER) (test code = 31.0 % 36.0-45.0 L 411) Glucose-Stat [id number] 16:13:18 Test Item Value Reference Range Interpretation Comments Glucose (test code = 2345-7) 205 mg/dL 70-110 H Lab Interpretation (test code = Abnormal 31040-6) [facility] [id number] 16:13:18 Test Item Value Reference Range Interpretation Comments Sodium (test code = 2951-2) 134 meq/L 136-145 L Lab Interpretation (test code = Abnormal 04847-9) [facility]Gl[facility] [id number] 16:13:18 Test Item Value Reference Range Interpretation Comments Glucose (test code = 2345-7) 205 mg/dL 70-110 H Lab Interpretation (test code = Abnormal 53254-4) [facility] [id number] 16:13:18 Test Item Value Reference Range Interpretation Comments Sodium (test code = 2951-2) 134 meq/L 136-145 L Lab Interpretation (test code = Abnormal 79206-1) [facility]Gl[facility] [id number] 16:13:18 Test Item Value Reference Range Interpretation Comments Glucose (test code = 2345-7) 205 mg/dL 70-110 H Lab Interpretation (test code = Abnormal 24239-8) [facility] [id number] 16:13:18 Test Item Value Reference Range Interpretation Comments Sodium (test code = 2951-2) 134 meq/L 136-145 L Lab Interpretation (test code = Abnormal 42474-0) [facility]Glucose[facility] [id number] 16:13:18 Test Item Value Reference Range Interpretation Comments Glucose (test code = 2345-7) 205 mg/dL 70-110 H Lab Interpretation (test code = Abnormal 20171-7) [facility] [id number] 16:13:18 Test Item Value Reference Range Interpretation Comments Sodium (test code = 2951-2) 134 meq/L 136-145 L Lab Interpretation (test code = Abnormal 71484-4) [facility]Glucose[facility] [id number] 16:13:18 Test Item Value Reference Range Interpretation Comments Glucose (test code = 2345-7) 205 mg/dL 70-110 H Lab Interpretation (test code = Abnormal 95405-4) [facility] [id number] 16:13:18 Test Item Value Reference Range Interpretation Comments Sodium (test code = 2951-2) 134 meq/L 136-145 L Lab Interpretation (test code = Abnormal 54318-9) [facility] [id number] 16:13:18 Test Item Value Reference Range Interpretation Comments Glucose (test code = 2345-7) 205 mg/dL 70-110 H Lab Interpretation (test code = Abnormal 31145-4) [facility] [id number] 16:13:18 Test Item Value Reference Range Interpretation Comments Sodium (test code = 2951-2) 134 meq/L 136-145 L Lab Interpretation (test code = Abnormal 31022-0) [facility]Glucose[facility]Stat [id number] 16:13:18 Test Item Value Reference Range Interpretation Comments Glucose (test code = 2345-7) 205 mg/dL 70-110 H Lab Interpretation (test code = Abnormal 02301-6) [facility] [id number] 16:13:18 Test Item Value Reference Range Interpretation Comments Sodium (test code = 2951-2) 134 meq/L 136-145 L Lab Interpretation (test code = Abnormal 31977-0) [facility]Glucose[facility] [id number] 16:13:18 Test Item Value Reference Range Interpretation Comments Glucose (test code = 2345-7) 205 mg/dL 70-110 H Lab Interpretation (test code = Abnormal 69114-3) [facility] [id number] 16:13:18 Test Item Value Reference Range Interpretation Comments Sodium (test code = 2951-2) 134 meq/L 136-145 L Lab Interpretation (test code = Abnormal 60186-1) [facility]Gl[facility] [id number] 16:13:18 Test Item Value Reference Range Interpretation Comments Glucose (test code = 2345-7) 205 mg/dL 70-110 H Lab Interpretation (test code = Abnormal 17021-2) [facility] [id number] 16:13:18 Test Item Value Reference Range Interpretation Comments Sodium (test code = 2951-2) 134 meq/L 136-145 L Lab Interpretation (test code = Abnormal 67507-6) [facility]Gl[facility] [id number] 16:13:18 Test Item Value Reference Range Interpretation Comments Glucose (test code = 2345-7) 205 mg/dL 70-110 H Lab Interpretation (test code = Abnormal 96289-8) [facility] [id number] 16:13:18 Test Item Value Reference Range Interpretation Comments Sodium (test code = 2951-2) 134 meq/L 136-145 L Lab Interpretation (test code = Abnormal 76348-8) [facility] [id number] 16:13:18 Test Item Value Reference Range Interpretation Comments Glucose (test code = 2345-7) 205 mg/dL 70-110 H Lab Interpretation (test code = Abnormal 97961-8) [facility] [id number] 16:13:18 Test Item Value Reference Range Interpretation Comments Sodium (test code = 2951-2) 134 meq/L 136-145 L Lab Interpretation (test code = Abnormal 93124-5) [facility]Gl[facility] [id number] 16:13:18 Test Item Value Reference Range Interpretation Comments Glucose (test code = 2345-7) 205 mg/dL 70-110 H Lab Interpretation (test code = Abnormal 54888-7) [facility] [id number] 16:13:18 Test Item Value Reference Range Interpretation Comments Sodium (test code = 2951-2) 134 meq/L 136-145 L Lab Interpretation (test code = Abnormal 16552-7) [facility] [id number] 16:13:18 Test Item Value Reference Range Interpretation Comments Glucose (test code = 2345-7) 205 mg/dL 70-110 H Lab Interpretation (test code = Abnormal 19809-9) [facility] [id number] 16:13:18 Test Item Value Reference Range Interpretation Comments Sodium (test code = 2951-2) 134 meq/L 136-145 L Lab Interpretation (test code = Abnormal 40116-3) [facility] [id number] 16:13:18 Test Item Value Reference Range Interpretation Comments Glucose (test code = 2345-7) 205 mg/dL 70-110 H Lab Interpretation (test code = Abnormal 89130-3) [facility] [id number] 16:13:18 Test Item Value Reference Range Interpretation Comments Sodium (test code = 2951-2) 134 meq/L 136-145 L Lab Interpretation (test code = Abnormal 34518-3) [facility] Vyk3260[facility]35[facility]25 16:13:18 Test Item Value Reference Range Interpretation Comments Glucose (test code = 2345-7) 205 mg/dL 70-110 H Lab Interpretation (test code = Abnormal 74662-2) [facility] Ets6839-52-30 16:13:18 Test Item Value Reference Range Interpretation Comments Sodium (test code = 2951-2) 134 meq/L 136-145 L Lab Interpretation (test code = Abnormal 71309-1) [facility] [id number] 16:13:18 Test Item Value Reference Range Interpretation Comments Glucose (test code = 2345-7) 205 mg/dL 70-110 H Lab Interpretation (test code = Abnormal 86931-9) [facility] Aia7993-71-13 16:13:18 Test Item Value Reference Range Interpretation Comments Sodium (test code = 2951-2) 134 meq/L 136-145 L Lab Interpretation (test code = Abnormal 09922-2) [facility] [id number] 16:13:18 Test Item Value Reference Range Interpretation Comments SODIUM (BEAKER) (test code = 381) 134 meq/L 136-145 L GLUCOSE-STAT [id number] 16:13:18 Test Item Value Reference Range Interpretation Comments GLUCOSE RANDOM (BEAKER) (test code 205 mg/dL 70-110 H = 652) BLOOD GAS, [id number] 16:13:17 Test Item Value Reference Range Interpretation [...] (BEAKER) (test code = 1819) 60.0 Potassium-Stat Zpj4582-71-43 16:11:46 Test Item Value Reference Range Interpretation Comments Potassium (test code = 2823-3) 4.5 meq/L 3.6-5.5 Lab Interpretation (test code = Normal 03648-3) [facility] Apk4762-67-77 16:11:46 Test Item Value Reference Range Interpretation Comments Potassium (test code = 2823-3) 4.5 meq/L 3.6-5.5 Lab Interpretation (test code = Normal 13545-3) [facility] Hxs6635-24-24 16:11:46 Test Item Value Reference Range Interpretation Comments Potassium (test code = 2823-3) 4.5 meq/L 3.6-5.5 Lab Interpretation (test code = Normal 88276-3) [facility] Oqs7824-01-45 16:11:46 Test Item Value Reference Range Interpretation Comments Potassium (test code = 2823-3) 4.5 meq/L 3.6-5.5 Lab Interpretation (test code = Normal 79976-4) [facility] Kux7617-01-72 16:11:46 Test Item Value Reference Range Interpretation Comments Potassium (test code = 2823-3) 4.5 meq/L 3.6-5.5 Lab Interpretation (test code = Normal 91124-0) [facility] Yae4448-11-91 16:11:46 Test Item Value Reference Range Interpretation Comments Potassium (test code = 2823-3) 4.5 meq/L 3.6-5.5 Lab Interpretation (test code = Normal 02118-3) [facility] Fzi6927-24-28 16:11:46 Test Item Value Reference Range Interpretation Comments Potassium (test code = 2823-3) 4.5 meq/L 3.6-5.5 Lab Interpretation (test code = Normal 97505-9) [facility] Nnj5747-60-51 16:11:46 Test Item Value Reference Range Interpretation Comments Potassium (test code = 2823-3) 4.5 meq/L 3.6-5.5 Lab Interpretation (test code = Normal 17305-2) [facility] Lfq9961-20-79 16:11:46 Test Item Value Reference Range Interpretation Comments Potassium (test code = 2823-3) 4.5 meq/L 3.6-5.5 Lab Interpretation (test code = Normal 43008-9) [facility] [id number] 16:11:46 Test Item Value Reference Range Interpretation Comments Potassium (test code = 2823-3) 4.5 meq/L 3.6-5.5 Lab Interpretation (test code = Normal 44131-6) [facility] Lps9077-49-65 16:11:46 Test Item Value Reference Range Interpretation Comments Potassium (test code = 2823-3) 4.5 meq/L 3.6-5.5 Lab Interpretation (test code = Normal 14682-9) [facility] Xne5528-06-23 16:11:46 Test Item Value Reference Range Interpretation Comments Potassium (test code = 2823-3) 4.5 meq/L 3.6-5.5 Lab Interpretation (test code = Normal 53635-5) [facility] [id number] 16:11:46 Test Item Value Reference Range Interpretation Comments Potassium (test code = 2823-3) 4.5 meq/L 3.6-5.5 Lab Interpretation (test code = Normal 62244-4) [facility] Jzw8234-08-67 16:11:46 Test Item Value Reference Range Interpretation Comments Potassium (test code = 2823-3) 4.5 meq/L 3.6-5.5 Lab Interpretation (test code = Normal 86394-7) [facility] [id number] 16:11:46 Test Item Value Reference Range Interpretation Comments Potassium (test code = 2823-3) 4.5 meq/L 3.6-5.5 Lab Interpretation (test code = Normal 84020-7) [facility] Xep1408-41-85 16:11:46 Test Item Value Reference Range Interpretation Comments Potassium (test code = 2823-3) 4.5 meq/L 3.6-5.5 Lab Interpretation (test code = Normal 32151-9) [facility] [id number] 16:11:46 Test Item Value Reference Range Interpretation Comments POTASSIUM (BEAKER) (test code = 4.5 meq/L 3.6-5.5 379) CALCIUM, [id number] 16:11:08 Test Item Value Reference Range Interpretation Comments CALCIUM IONIZED (BEAKER) (test 1.16 mmol/L 1.12-1.27 code = 698) PH, BLOOD (BEAKER) (test code = 7.44 1810) Manual Jmtkjqmaujab1173-42-82 16:00:23 Test Item Value Reference Range Interpretation Comments % Neutros (test code = 89 % 281) % Lymphs (test code = 4 % 281) % Monos (test code = 6 % 281) % Myelo (test code = 1 % [...] = 3438) BRANDI (test code = BRANDI) [employer] Machine Operator ID - Liza Tabitha comments: Slide comments: Lab Interpretation (test Abnormal code = 87295-2) [facility] Thbgctwbszfm8163-98-28 16:00:23 Test Item Value Reference Range Interpretation [...] = 3438) BRANDI (test code = BRANDI) [employer] Machine Operator ID - Liza Lu comments: Slide comments: Lab Interpretation (test Abnormal code = 93893-0) [facility] Prmzsvksaydu5841-57-57 16:00:23 Test Item Value Reference Range Interpretation [...] = 3438) BRANDI (test code = BRANDI) [employer] Machine Operator ID - Liza Lu comments: Slide comments: Lab Interpretation (test Abnormal code = 39929-9) [facility] Qffujmrltmal0197-71-33 16:00:23 Test Item Value Reference Range Interpretation [...] = 3438) BRANDI (test code = BRANDI) [employer] Machine Operator ID - Liza Lu comments: Slide comments: Lab Interpretation (test Abnormal code = 30641-5) [facility] Nhnzmlepyphx9930-17-33 16:00:23 Test Item Value Reference Range Interpretation [...] Poikilocytes (test code = 1+ few 966) Dexter Cells (test code = 1+ few 474) Artifact (test code = Present 3432) Platelet Conc (test code Decreased = 3438) BRANDI (test code = BRANDI) [employer] Machine Operator ID - Liza Lu comments: Slide comments: Lab Interpretation (test Abnormal code = 34798-6) [facility] Dhancmfcjnay6892-96-62 16:00:23 Test Item Value Reference Range Interpretation [...] = 3438) BRANDI (test code = BRANDI) [employer] Machine Operator ID - Liza Lu comments: Slide comments: Lab Interpretation (test Abnormal code = 98472-1) [facility] Lnavcsaarjne2991-42-63 16:00:23 Test Item Value Reference Range Interpretation [...] Poikilocytes (test code = 1+ few 966) Dexter Cells (test code = 1+ few 474) Artifact (test code = Present 3432) Platelet Conc (test code Decreased = 3438) BRANDI (test code = BRANDI) [employer] Machine Operator ID - Liza Lu comments: Slide comments: Lab Interpretation (test Abnormal code = 16129-5) [facility] Shhmxrjpderq9554-57-47 16:00:23 Test Item Value Reference Range Interpretation [...] = 3438) BRANDI (test code = BRANDI) [employer] Machine Operator ID - Liza Lu comments: Slide comments: Lab Interpretation (test Abnormal code = 67778-3) [facility] Xfdompdttlwe0666-89-85 16:00:23 Test Item Value Reference Range Interpretation [...] = 3438) BRANDI (test code = BRANDI) [employer] Machine Operator ID - Liza Lu comments: Slide comments: Lab Interpretation (test Abnormal code = 50089-8) [facility] Bunmvszwlgls6803-56-68 16:00:23 Test Item Value Reference Range Interpretation [...] Poikilocytes (test code = 1+ few 966) Dexter Cells (test code = 1+ few 474) Artifact (test code = Present 3432) Platelet Conc (test code Decreased = 3438) BRANDI (test code = BRANDI) [employer] Machine Operator ID - Liza Lu comments: Slide comments: Lab Interpretation (test Abnormal code = 01834-8) [facility] Buxqprqongra9777-89-46 16:00:23 Test Item Value Reference Range Interpretation [...] = 3438) BRANDI (test code = BRANDI) [employer] Machine Operator ID - Liza Tabitha comments: Slide comments: Lab Interpretation (test Abnormal code = 17177-0) [facility] Zqpfeecyhefy1801-64-31 16:00:23 Test Item Value Reference Range Interpretation [...] Poikilocytes (test code = 1+ few 966) Dexter Cells (test code = 1+ few 474) Artifact (test code = Present 3432) Platelet Conc (test code Decreased = 3438) BRANDI (test code = BRANDI) [employer] Machine Operator ID - Liza Lu comments: Slide comments: Lab Interpretation (test Abnormal code = 01530-0) [facility] Enjraabcshiu6801-99-39 16:00:23 Test Item Value Reference Range Interpretation [...] = 3438) BRANDI (test code = BRANDI) [employer] Machine Operator ID - Liza Lu comments: Slide comments: Lab Interpretation (test Abnormal code = 64643-6) [facility] Ylixoqmmqohv4576-68-85 16:00:23 Test Item Value Reference Range Interpretation [...] = 3438) BRANDI (test code = BRANDI) [employer] Machine Operator ID - Liza Lu comments: Slide comments: Lab Interpretation (test Abnormal code = 12625-9) [facility] Laaojhshecrr2597-79-32 16:00:23 Test Item Value Reference Range Interpretation [...] Poikilocytes (test code = 1+ few 966) Dexter Cells (test code = 1+ few 474) Artifact (test code = Present 3432) Platelet Conc (test code Decreased = 3438) BRANDI (test code = BRANDI) [employer] Machine Operator ID - Liza Lu comments: Slide comments: Lab Interpretation (test Abnormal code = 55021-8) [facility] Cmmvtwrzzonj9315-69-56 16:00:23 Test Item Value Reference Range Interpretation [...] Poikilocytes (test code = 1+ few 966) Dexter Cells (test code = 1+ few 474) Artifact (test code = Present 3432) Platelet Conc (test code Decreased = 3438) BRANDI (test code = BRANDI) [employer] Machine Operator ID - Liza Lu comments: Slide comments: Lab Interpretation (test Abnormal code = 96610-8) [facility](CELLAVISION MANUAL DIFF)2021-06-18 16:00:23 Test Item Value [...] CONCENTRATION Decreased (CELLAVISION)(BEAKER) (test code = 3438) [employer] Machine Operator ID - Liza Lu comments: Slide comments:RAD, CHEST, 1 VIEW, NON [id number] 15:58:00Reason for exam:->Post-opShould this be performed at the bedside?->Yes [facility] 1955 Sex: FFINAL REPORT CHEST AP PORTABLE COMPARISON STUDY: 06/10/2021 History provided: Postopevaluation ET tube in place with tip midway between clavicles and marlon. NG tip in the stomach. Right jugular Harshaw-Blayne catheter with tip in the right main pulmonary artery. Chest tubes with no pneumothorax. Mild right basilar atelectasis with trace right pleural effusion. Lungs otherwise grossly clear and vascularity normal. Signed: Wero Alvarezort Verified Date/Time: 06/18/2021 15:58:54 Reading Location: [facility] Diagnostic Imaging Reading Room - [facility] 1.310.12 C METABOLIC [id number] 15:57:50 Test Item Value Reference Range Interpretation [...] S NOT APPLICABLE FOR DIALYSIS PATIEN TS. [employer] Machine Operator ID - HIEN QZqztopqlj-QGIS7580-53-17 15:57:19 Test Item Value Reference Range Interpretation Comments Potassium (test code = 2823-3) 4.8 meq/L 3.5-5.1 Lab Interpretation (test code = Normal 34095-2) [facility]-ITYM5620-48-85 15:57:19 Test Item Value Reference Range Interpretation Comments Potassium (test code = 2823-3) 4.8 meq/L 3.5-5.1 Lab Interpretation (test code = Normal 65505-3) [facility]DEAG0769-47-87 15:57:19 Test Item Value Reference Range Interpretation Comments Potassium (test code = 2823-3) 4.8 meq/L 3.5-5.1 Lab Interpretation (test code = Normal 04544-6) [facility]DPPC5318-57-98 15:57:19 Test Item Value Reference Range Interpretation Comments Potassium (test code = 2823-3) 4.8 meq/L 3.5-5.1 Lab Interpretation (test code = Normal 41930-8) [facility]JTOF0359-60-24 15:57:19 Test Item Value Reference Range Interpretation Comments Potassium (test code = 2823-3) 4.8 meq/L 3.5-5.1 Lab Interpretation (test code = Normal 93533-9) [facility]GFQK7190-39-47 15:57:19 Test Item Value Reference Range Interpretation Comments Potassium (test code = 2823-3) 4.8 meq/L 3.5-5.1 Lab Interpretation (test code = Normal 16277-9) [facility]LCVI9427-87-50 15:57:19 Test Item Value Reference Range Interpretation Comments Potassium (test code = 2823-3) 4.8 meq/L 3.5-5.1 Lab Interpretation (test code = Normal 97095-5) [facility]MXLV4003-15-14 15:57:19 Test Item Value Reference Range Interpretation Comments Potassium (test code = 2823-3) 4.8 meq/L 3.5-5.1 Lab Interpretation (test code = Normal 33502-0) [facility]QZAJ1151-89-64 15:57:19 Test Item Value Reference Range Interpretation Comments Potassium (test code = 2823-3) 4.8 meq/L 3.5-5.1 Lab Interpretation (test code = Normal 37683-2) [facility]ECSD6961-08-66 15:57:19 Test Item Value Reference Range Interpretation Comments Potassium (test code = 2823-3) 4.8 meq/L 3.5-5.1 Lab Interpretation (test code = Normal 33711-9) [facility]WCZX2632-66-78 15:57:19 Test Item Value Reference Range Interpretation Comments Potassium (test code = 2823-3) 4.8 meq/L 3.5-5.1 Lab Interpretation (test code = Normal 74977-3) [facility]AMMR1803-54-94 15:57:19 Test Item Value Reference Range Interpretation Comments Potassium (test code = 2823-3) 4.8 meq/L 3.5-5.1 Lab Interpretation (test code = Normal 06305-8) [facility]-FUNB9966-28-63 15:57:19 Test Item Value Reference Range Interpretation Comments Potassium (test code = 2823-3) 4.8 meq/L 3.5-5.1 Lab Interpretation (test code = Normal 51500-5) [facility]AKTM7116-22-85 15:57:19 Test Item Value Reference Range Interpretation Comments Potassium (test code = 2823-3) 4.8 meq/L 3.5-5.1 Lab Interpretation (test code = Normal 42709-6) [facility]LEQR1223-02-86 15:57:19 Test Item Value Reference Range Interpretation Comments Potassium (test code = 2823-3) 4.8 meq/L 3.5-5.1 Lab Interpretation (test code = Normal 39119-6) [facility]-BUOK9817-65-14 15:57:19 Test Item Value Reference Range Interpretation Comments Potassium (test code = 2823-3) 4.8 meq/L 3.5-5.1 Lab Interpretation (test code = Normal 51445-9) [facility] 15:57:19 Test Item Value Reference Range Interpretation Comments POTASSIUM (BEAKER) (test code = 4.8 meq/L 3.5-5.1 379) AHHSCOPLVM2404-90-77 15:57:19 Test Item Value Reference Range Interpretation Comments PHOSPHORUS (BEAKER) (test code = 4.9 mg/dL 2.3-4.7 H 604) [employer] Machine Operator ID - HIEN TMTZKKLAFG8404-03-50 15:57:18 Test Item Value Reference Range Interpretation Comments MAGNESIUM (BEAKER) (test code = 2.6 mg/dL 1.6-2.6 627) [employer] Machine Operator NORAH - HIEN MPrepare wuclkk1912-62-00 15:44:00 Test Item Value Reference Range Interpretation Comments Unit ABO (test code = O Neg 4552245) UNIT NUMBER (test code = [id number] 934-0) Status (test code = RETURNED FROM ISSUE 15100613) Blood Bank Product (test FFP code = 2263) PRODUCT CODE (test code = P6584V99 933-2) [facility]2022-03-17 15:44:00 Test Item Value Reference Range Interpretation Comments Unit ABO (test code = O Neg 9386942) UNIT NUMBER (test code = [id number] 934-0) Status (test code = RETURNED FROM ISSUE 6616922) Blood Bank Product (test FFP code = 2263) PRODUCT CODE (test code = F8329Z26 933-2) [facility]2022-03-17 15:44:00 Test Item Value Reference Range Interpretation Comments Unit ABO (test code = O Neg 5470106) UNIT NUMBER (test code = [id number] 934-0) Status (test code = RETURNED FROM ISSUE 4589948) [facility] Product (test FFP code = 2263) PRODUCT CODE (test code = Z3893Q11 933-2) [facility]2022-03-17 15:44:00 Test Item Value Reference Range Interpretation Comments Unit ABO (test code = O Neg 2320969) UNIT NUMBER (test code = [id number] 934-0) Status (test code = RETURNED FROM ISSUE 5716124) [facility] [employer] Product (test FFP code = 2263) PRODUCT CODE (test code = J0730H14 933-2) [facility] gffptp9063-08-33 15:44:00 Test Item Value Reference Range Interpretation Comments Unit ABO (test code = O Neg 2516273) UNIT NUMBER (test code = [id number] 934-0) Status (test code = RETURNED FROM ISSUE 1515127) [facility] [employer] Product (test FFP code = 2263) PRODUCT CODE (test code = G3892U44 933-2) [facility]2022-03-17 15:44:00 Test Item Value Reference Range Interpretation Comments Unit ABO (test code = O Neg 5513217) UNIT NUMBER (test code = [id number] 934-0) Status (test code = RETURNED FROM ISSUE 9188016) [facility] [employer] Product (test FFP code = 2263) PRODUCT CODE (test code = W7344B14 933-2) [facility] dojqmv3414-77-55 15:44:00 Test Item Value Reference Range Interpretation Comments Unit ABO (test code = O Neg 0044130) UNIT NUMBER (test code = [id number] 934-0) Status (test code = RETURNED FROM ISSUE 6566471) [facility] Product (test FFP code = 2263) PRODUCT CODE (test code = K1344K81 933-2) [facility] yobkfb1844-21-41 15:44:00 Test Item Value Reference Range Interpretation Comments Unit ABO (test code = O Neg 5095224) UNIT NUMBER (test code = [id number] 934-0) Status (test code = RETURNED FROM ISSUE 6947403) [facility] Product (test FFP code = 2263) PRODUCT CODE (test code = Y6511V06 933-2) [facility] xmajqt6882-39-08 15:44:00 Test Item Value Reference Range Interpretation Comments Unit ABO (test code = O Neg 4246967) UNIT NUMBER (test code = [id number] 934-0) Status (test code = RETURNED FROM ISSUE 7785813) [facility] [employer] Product (test FFP code = 2263) PRODUCT CODE (test code = G9646E64 933-2) [facility] ianuof5216-39-33 15:44:00 Test Item Value Reference Range Interpretation Comments Unit ABO (test code = O Neg 9798325) UNIT NUMBER (test code = [id number] 934-0) Status (test code = RETURNED FROM ISSUE 1404487) [facility] [employer] Product (test FFP code = 2263) PRODUCT CODE (test code = B5799N75 933-2) [facility] cftpbk5668-92-97 15:44:00 Test Item Value Reference Range Interpretation Comments Unit ABO (test code = O Neg 5269793) UNIT NUMBER (test code = [id number] 934-0) Status (test code = RETURNED FROM ISSUE 1401056) [facility] [employer] Product (test FFP code = 2263) PRODUCT CODE (test code = S9453I53 933-2) [facility] vvmnkn0560-87-43 15:44:00 Test Item Value Reference Range Interpretation Comments Unit ABO (test code = O Neg 7549071) UNIT NUMBER (test code = [id number] 934-0) Status (test code = RETURNED FROM ISSUE 7792311) [facility] [employer] Product (test FFP code = 2263) PRODUCT CODE (test code = V3932T94 933-2) [facility] rnufhu4247-38-68 15:44:00 Test Item Value Reference Range Interpretation Comments Unit ABO (test code = O Neg 2961576) UNIT NUMBER (test code = [id number] 934-0) Status (test code = RETURNED FROM ISSUE 4497775) [facility] Product (test FFP code = 2263) PRODUCT CODE (test code = R6926D87 933-2) [facility] qcwhpm8069-41-90 15:44:00 Test Item Value Reference Range Interpretation Comments Unit ABO (test code = O Neg 2286444) UNIT NUMBER (test code = [id number] 934-0) Status (test code = RETURNED FROM ISSUE 3559744) [facility] Product (test FFP code = 2263) PRODUCT CODE (test code = S5916C82 933-2) [facility] vatuxy8754-78-54 15:44:00 Test Item Value Reference Range Interpretation Comments Unit ABO (test code = O Neg 2829167) UNIT NUMBER (test code = [id number] 934-0) Status (test code = RETURNED FROM ISSUE 6268425) [facility] Product (test FFP code = 2263) PRODUCT CODE (test code = G4903H15 933-2) [facility] iuoxpn0893-63-24 15:44:00 Test Item Value Reference Range Interpretation Comments Unit ABO (test code = O Neg 3061759) UNIT NUMBER (test code = [id number] 934-0) Status (test code = RETURNED FROM ISSUE 2489109) [facility] Product (test FFP code = 2263) PRODUCT CODE (test code = Z8358T24 933-2) [facility] 15:32:33 Test Item Value Reference Range Interpretation Comments PARTIAL THROMBOPLASTIN TIME 37.6 seconds 22.5-36.0 H (BEAKER) (test code = 760) PROTHROMBIN TIME/LQZ4149-35-85 15:31:52 Test Item Value Reference Range Interpretation Comments PROTIME (BEAKER) 17.9 seconds 11.9-14.2 H (test code = 759) INR (BEAKER) (test 1.50 See_Comment [Automat ed message] code = 370) The system [employer] generated this result transmitted ref erence range: <=5.90. The reference range was not used to int erpret this result as normal/abnormal . RECOMMENDED COUMADIN/WARFARIN INR THERAPY RANGESSTANDARD DOSE: 2.0 - 3.0 Includes: PROPHYLAXIS for venous thrombosis, systemic embolization; TREATMENT for venous thrombosis and/or pulmonary embolus.HIGH RISK: Target INR is 2.5-3.5 for patients with mechanical heart valves.CBC with platelet count + automated bjpp6008-30-45 15:24:09 Test Item Value Reference Range Interpretation Comments WBC (test code = 6690-2) 16.2 See_Comment H [A utomated message] The system [employer] generated this result transmitted ref erence range: 3.5 - 10 .5 K/L. The refe rence range was not u sed to interpret this result as normal/abnor mal. RBC (test code = 789-8) 3.33 See_Comment L [Au tomated message] The system [employer] generated this result transmitted ref erence range: 3.93 - 5 .22 M/L. The refe rence range was not u sed to interpret this result as normal/abnor mal. MCHC (test code = 786-4) 31.8 See_Comment L [A utomated message] The system [employer] generated this result transmitted ref erence range: [...] L [Aut omated message] 777-3) The system [employer] generated this result transmitted ref erence range: 150 - 45 0 K/CU MM. The referen ce range was not u sed to interpret this result as normal/abnor mal. MPV (test code = 10.3 fL 9.4-12.3 28385-5) nRBC (test code = 413) 0 See_Comment [Aut omated message] The system [employer] generated this result transmitted ref erence range: 0 - 0 /1 00 WBC. The refere nce range was not u sed to interpret this result as normal/abnor mal. Lab Interpretation (test Abnormal code = 23558-1) [facility] with platelet count + automated unir6652-17-73 15:24:09 Test Item Value Reference Range Interpretation Comments WBC (test code = 6690-2) 16.2 See_Comment H [A utomated message] The system [employer] generated this result transmitted ref erence range: 3.5 - 10 .5 K/L. The refe rence range was not u sed to interpret this result as normal/abnor mal. RBC (test code = 789-8) 3.33 See_Comment L [Au tomated message] The system [employer] generated this result transmitted ref erence range: 3.93 - 5 .22 M/L. The refe rence range was not u sed to interpret this result as normal/abnor mal. MCHC (test code = 786-4) 31.8 See_Comment L [A utomated message] The system [employer] generated this result transmitted ref erence range: [...] L [Aut omated message] 777-3) The system [employer] generated this result transmitted ref erence range: 150 - 45 0 K/CU MM. The referen ce range was not u sed to interpret this result as normal/abnor mal. MPV (test code = 10.3 fL 9.4-12.3 27645-0) nRBC (test code = 413) 0 See_Comment [Aut omated message] The system [employer] generated this result transmitted ref erence range: 0 - 0 /1 00 WBC. The refere nce range was not u sed to interpret this result as normal/abnor mal. Lab Interpretation (test Abnormal code = 27842-7) [facility] W/PLT COUNT & AUTO [id number] 15:24:09 Test Item Value Reference Range Interpretation [...] (BEAKER) (test code = 413) Hemoglobin and [id number] 15:23:11 Test Item Value Reference Range Interpretation Comments Hemoglobin (test code = 10.0 See_Comment L [Au tomated message] 786-4) The system [employer] generated this result transmitted ref erence range: 11.2 - 1 5.7 GM/DL. The refe rence range was not u sed to interpret this result as normal/abnor mal. Hematocrit (test code = 31.4 % 34.1-44.9 L 4544-3) Lab Interpretation (test Abnormal code = 76981-7) [facility] [id number] 15:23:11 Test Item Value Reference Range Interpretation Comments HEMOGLOBIN (BEAKER) (test code = 10.0 GM/DL 11.2-15.7 L 410) HEMATOCRIT (BEAKER) (test code = 31.4 % 34.1-44.9 L 411) BLOOD GAS, [id number] 15:19:54 Test Item Value Reference Range Interpretation [...] = 1819) 75.0 HGB/HCT (H&H) - STAT [id number] 15:19:53 Test Item Value Reference Range Interpretation Comments HEMOGLOBIN (BEAKER) (test code = 10.6 GM/DL 12.0-15.0 L 410) HEMATOCRIT (BEAKER) (test code = 31.0 % 36.0-45.0 L 411) GLUCOSE-STAT [id number] 15:19:46 Test Item Value Reference Range Interpretation Comments GLUCOSE RANDOM (BEAKER) (test code 200 mg/dL 70-110 H = 652) OXYGEN SATURATION, [id number] 15:18:32 Test Item Value Reference Range Interpretation Comments O2 SATURATION (MEASURED) (BEAKER) 83.4 % (test code = 1455) POTASSIUM-STAT [id number] 15:18:10 Test Item Value Reference Range Interpretation Comments POTASSIUM (BEAKER) (test code = 4.5 meq/L 3.6-5.5 379) SODIUM NA-STAT [id number] 15:18:09 Test Item Value Reference Range Interpretation Comments SODIUM (BEAKER) (test code = 381) 136 meq/L 136-145 CALCIUM, [id number] 15:18:08 Test Item Value Reference Range Interpretation Comments CALCIUM IONIZED (BEAKER) (test 1.14 mmol/L 1.12-1.27 code = 698) PH, BLOOD (BEAKER) (test code = 7.39 1810) POC ACTIVATED CLOTTING [id number] 14:20:47 Test Item Value Reference Range Interpretation Comments Activated Clotting Time 130 sec : 74 -137 seconds, (test code = 441) Baseline: TESTED AT [address], [address]: [employer] Machine Operator/Techni kelle ID = [id number] for Me ndoza, [place] [facility] ACTIVATED CLOTTING [id number] 14:20:47 Test Item Value Reference Range Interpretation Comments Activated Clotting Time 130 sec : 74 -137 seconds, (test code = 441) Baseline: TESTED AT [address], [address]: [employer] Machine Operator/Techni kelle ID = [id number] for Me ndoza, [place] [facility] ACTIVATED CLOTTING [id number] 14:20:47 Test Item Value Reference Range Interpretation Comments Activated Clotting Time 130 sec : 74 -137 seconds, (test code = 441) Baseline: TESTED AT [address], [address]: [employer] Machine Operator/Techni kelle ID = [id number] for Me ndoza, [place] [facility] ACTIVATED CLOTTING [id number] 14:20:47 Test Item Value Reference Range Interpretation Comments Activated Clotting Time 130 sec : 74 -137 seconds, (test code = 441) Baseline: TESTED AT [address], [address]: [employer] Machine Operator/Techni kelle ID = [id number] for Me ndoza, Rocky [facility] ACTIVATED CLOTTING [id number] 14:20:47 Test Item Value Reference Range Interpretation Comments Activated Clotting Time 130 sec : 74 -137 seconds, (test code = 441) Baseline: TESTED AT [address], [address]: [employer] Machine Operator/Techni kelle ID = [id number] for Me ndoza, Rocky [facility] ACTIVATED CLOTTING [id number] 14:20:47 Test Item Value Reference Range Interpretation Comments Activated Clotting Time 130 sec : 74 -137 seconds, (test code = 441) Baseline: TESTED AT [address], [address]: [employer] Machine Operator/Techni kelle ID = [id number] for Me ndoza, Rocky [facility] ACTIVATED CLOTTING [id number] 14:20:47 Test Item Value Reference Range Interpretation Comments Activated Clotting Time 130 sec : 74 -137 seconds, (test code = 441) Baseline: TESTED AT [address], [address]: [employer] Machine Operator/Techni kelle ID = [id number] for Me ndoza, Rocky [facility] ACTIVATED CLOTTING [id number] 14:20:47 Test Item Value Reference Range Interpretation Comments Activated Clotting Time 130 sec : 74 -137 seconds, (test code = 441) Baseline: TESTED AT [address], [address]: [employer] Machine Operator/Techni kelle ID = [id number] for Me ndoza, Rocky [facility] ACTIVATED CLOTTING [id number] 14:20:47 Test Item Value Reference Range Interpretation Comments Activated Clotting Time 130 sec : 74 -137 seconds, (test code = 441) Baseline: TESTED AT [address], [address]: [employer] Machine Operator/Techni kelle ID = [id number] for Me ndoza, Rocky [facility] ACTIVATED CLOTTING [id number] 14:20:47 Test Item Value Reference Range Interpretation Comments Activated Clotting Time 130 sec : 74 -137 seconds, (test code = 441) Baseline: TESTED AT [address], [address]: [employer] Machine Operator/Techni kelle ID = [id number] for Me ndoza, Rocky [facility] ACTIVATED CLOTTING [id number] 14:20:47 Test Item Value Reference Range Interpretation Comments Activated Clotting Time 130 sec : 74 -137 seconds, (test code = 441) Baseline: TESTED AT [address], [address]: [employer] Machine Operator/Techni kelle ID = [id number] for Me ndoza, Rocky [facility] ACTIVATED CLOTTING [id number] 14:20:47 Test Item Value Reference Range Interpretation Comments Activated Clotting Time 130 sec : 74 -137 seconds, (test code = 441) Baseline: TESTED AT [address], [address]: [employer] Machine Operator/Techni kelle ID = [id number] for Me ndoza, [place] [facility] ACTIVATED CLOTTING [id number] 14:20:47 Test Item Value Reference Range Interpretation Comments Activated Clotting Time 130 sec : 74 -137 seconds, (test code = 3184-9) Baselin e: TESTED AT [address], [address]: [employer] Machine Operator/Techni kelle ID = [id number] for Me ndoza, [place] [facility] ACTIVATED CLOTTING [id number] 14:20:47 Test Item Value Reference Range Interpretation Comments Activated Clotting Time 130 sec : 74 -137 seconds, (test code = 441) Baseline: TESTED AT [address], [address]: [employer] Machine Operator/Techni kelle ID = [id number] for Me ndoza, Rocky [facility] ACTIVATED CLOTTING [id number] 14:20:47 Test Item Value Reference Range Interpretation Comments Activated Clotting Time 130 sec : 74 -137 seconds, (test code = 441) Baseline: TESTED AT [address], [address]: [employer] Machine Operator/Techni kelle ID = [id number] for Me ndoza, Rocky [facility] ACTIVATED CLOTTING [id number] 14:20:47 Test Item Value Reference Range Interpretation Comments Activated Clotting Time 130 sec : 74 -137 seconds, (test code = 3184-9) Baselin e: TESTED AT [address], [address]: [employer] Machine Operator/Techni kelle ID = [id number] for Rocky [id number] 14:20:47 Test Item Value Reference Range Interpretation Comments ACTIVATED CLOTTING TIME 130 sec : 74 -137 seconds, (BEAKER) (test code = Baseli ne: TESTED AT 441) [address], [address]: [employer] Machine Operator/Techni kelle ID = [id number] for Me islas, Rocky [id number] 14:20:46 Test Item Value Reference Range Interpretation Comments ACTIVATED CLOTTING TIME 577 sec : 74 -137 seconds, (BEAKER) (test code = Baseli ne: TESTED AT 441) [address], [address]: [employer] Machine Operator/Techni kelle ID = [id number] for Me islas, Rocky [id number] 14:20:45 Test Item Value Reference Range Interpretation Comments ACTIVATED CLOTTING TIME 743 sec : 74 -137 seconds, (BEAKER) (test code = Baseli ne: TESTED AT 441) [address], [address]: [employer] Machine Operator/Techni kelle ID = [id number] for Me islas, Rocky [id number]-[id number] 14:20:45 Test Item Value Reference Range Interpretation Comments ACTIVATED CLOTTING TIME 618 sec : 74 -137 seconds, (BEAKER) (test code = Baseli ne: TESTED AT 441) [address], [address]: [employer] Machine Operator/Techni kelle ID = [id number] for Me sanchezozcata, Rocky [id number] 14:20:44 Test Item Value Reference Range Interpretation Comments ACTIVATED CLOTTING TIME 547 sec : 74 -137 seconds, (BEAKER) (test code = Baseli ne: TESTED AT 441) [address], [facility] 30: [employer] Machine Operator/Techni kelle ID = [id number] for Me sanchezoza, Rocky [id number] 14:20:12 Test Item Value Reference Range Interpretation Comments ACTIVATED CLOTTING TIME 809 sec : 74 -137 seconds, (BEAKER) (test code = Baseli ne: TESTED AT 441) [facility] [address] [place], [address]: [employer] Machine Operator/Techni kelle ID = [id number] for Rocky Danielle [id number] 13:49:05 Test Item Value Reference Range Interpretation Comments PARTIAL THROMBOPLASTIN TIME 38.3 seconds 22.5-36.0 H (AKASH) (test code = 760) [id number] 13:48:43 Test Item Value Reference Range Interpretation Comments Fibrinogen (test code = 3255-7) 246 mg/dl 225-434 Lab Interpretation (test code = Normal 95779-3) [facility] 13:[facility]43 Test Item Value Reference Range Interpretation Comments Fibrinogen (test code = 3255-7) 246 mg/dl 225-434 Lab Interpretation (test code = Normal 85826-2) [facility] 13:48:43 Test Item Value Reference Range Interpretation Comments Fibrinogen (test code = 3255-7) 246 mg/dl 225-434 Lab Interpretation (test code = Normal 34712-5) [facility] 13:48:43 Test Item Value Reference Range Interpretation Comments Fibrinogen (test code = 3255-7) 246 mg/dl 225-434 Lab Interpretation (test code = Normal 52216-8) [facility] 13:48:43 Test Item Value Reference Range Interpretation Comments Fibrinogen (test code = 3255-7) 246 mg/dl 225-434 Lab Interpretation (test code = Normal 22185-7) [facility] 13:48:43 Test Item Value Reference Range Interpretation Comments Fibrinogen (test code = 3255-7) 246 mg/dl 225-434 Lab Interpretation (test code = Normal 88801-9) [facility] 13:48:43 Test Item Value Reference Range Interpretation Comments Fibrinogen (test code = 3255-7) 246 mg/dl 225-434 Lab Interpretation (test code = Normal 26663-0) [facility] 13:48:43 Test Item Value Reference Range Interpretation Comments Fibrinogen (test code = 3255-7) 246 mg/dl 225-434 Lab Interpretation (test code = Normal 89521-6) [facility]2022-03-17 13:48:43 Test Item Value Reference Range Interpretation Comments Fibrinogen (test code = 3255-7) 246 mg/dl 225-434 Lab Interpretation (test code = Normal 81905-0) [facility]2022-03-17 13:48:43 Test Item Value Reference Range Interpretation Comments Fibrinogen (test code = 3255-7) 246 mg/dl 225-434 Lab Interpretation (test code = Normal 27445-1) [facility]2022-03-17 13:48:43 Test Item Value Reference Range Interpretation Comments Fibrinogen (test code = 3255-7) 246 mg/dl 225-434 Lab Interpretation (test code = Normal 00476-6) [facility]2022-03-17 13:48:43 Test Item Value Reference Range Interpretation Comments Fibrinogen (test code = 3255-7) 246 mg/dl 225-434 Lab Interpretation (test code = Normal 51939-2) [facility]2022-03-17 13:48:43 Test Item Value Reference Range Interpretation Comments Fibrinogen (test code = 3255-7) 246 mg/dl 225-434 Lab Interpretation (test code = Normal 62647-3) [facility]2022-03-17 13:48:43 Test Item Value Reference Range Interpretation Comments Fibrinogen (test code = 3255-7) 246 mg/dl 225-434 Lab Interpretation (test code = Normal 29686-7) [facility]2022-03-17 13:48:43 Test Item Value Reference Range Interpretation Comments Fibrinogen (test code = 3255-7) 246 mg/dl 225-434 Lab Interpretation (test code = Normal 20476-7) [facility]2022-03-17 13:48:43 Test Item Value Reference Range Interpretation Comments Fibrinogen (test code = 3255-7) 246 mg/dl 225-434 Lab Interpretation (test code = Normal 32094-2) [address]03-17 13:48:43 Test Item Value Reference Range Interpretation Comments FIBRINOGEN LEVEL (BEAKER) (test 246 mg/dl 225-434 code = 658) PROTHROMBIN TIME/[id number] 13:48:05 Test Item Value Reference Range Interpretation Comments PROTIME (BEAKER) 19.5 seconds 11.9-14.2 H (test code = 759) INR (BEAKER) (test 1.67 See_Comment [Automat ed message] code = 370) The system [employer] h generated this result transmitted ref erence range: <=5.90. The reference range was not used to int erpret this result as normal/abnormal . RECOMMENDED COUMADIN/WARFARIN INR THERAPY RANGESSTANDARD DOSE: 2.0 - 3.0 Includes: PROPHYLAXIS for venous thrombosis, systemic embolization; TREATMENT for venous thrombosis and/or pulmonary embolus.HIGH RISK: Target INR is 2.5-3.5 for patients with mechanical heart valves.Platelet [id number] 13:39:36 Test Item Value Reference Range Interpretation Comments Platelets (test code 133 See_Comment L [Autom ated = 777-3) message] The system which generated this result transmit levi reference range : 150 - 450 K/CU MM. The reference range was not u sed to interpret th is result as normal/abnormal . BRANDI (test code = BRANDI) [employer] Machine Operator ID - [id number] Lab Interpretation Abnormal (test code = 09761-1) [facility] [id number] 13:39:36 Test Item Value Reference Range Interpretation Comments Platelets (test code 133 See_Comment L [Autom ated = 777-3) message] The system which generated this result transmit levi reference range : 150 - 450 K/CU MM. The reference range was not u sed to interpret th is result as normal/abnormal . BRANDI (test code = BRANDI) [employer] Machine Operator ID - [id number] Lab Interpretation Abnormal (test code = 53010-6) [facility] [id number] 13:39:36 Test Item Value Reference Range Interpretation Comments Platelets (test code 133 See_Comment L [Autom ated = 777-3) message] The system which generated this result transmit levi reference range : 150 - 450 K/CU MM. The reference range was not u sed to interpret th is result as normal/abnormal . BRANDI (test code = BRANDI) [employer] Machine Operator ID - [id number] Lab Interpretation Abnormal (test code = 66087-6) [facility] [place] [id number] 13:39:36 Test Item Value Reference Range Interpretation Comments Platelets (test code 133 See_Comment L [Autom ated = 777-3) message] The system which generated this result transmit levi reference range : 150 - 450 K/CU MM. The reference range was not u sed to interpret th is result as normal/abnormal . BRANDI (test code = BRANDI) [employer] Machine Operator ID - [id number] Lab Interpretation Abnormal (test code = 37832-4) [facility] [id number] 13:39:36 Test Item Value Reference Range Interpretation Comments Platelets (test code 133 See_Comment L [Autom ated = 777-3) message] The system which generated this result transmit levi reference range : 150 - 450 K/CU MM. The reference range was not u sed to interpret th is result as normal/abnormal . BRANDI (test code = BRANDI) [employer] Machine Operator ID - [id number] Lab Interpretation Abnormal (test code = 81521-8) [facility] [place] [id number] 13:39:36 Test Item Value Reference Range Interpretation Comments Platelets (test code 133 See_Comment L [Autom ated = 777-3) message] The system which generated this result transmit levi reference range : 150 - 450 K/CU MM. The reference range was not u sed to interpret th is result as normal/abnormal . BRANDI (test code = BRANDI) [employer] Machine Operator ID - [id number] Lab Interpretation Abnormal (test code = 18146-1) [facility] [place] [id number] 13:39:36 Test Item Value Reference Range Interpretation Comments Platelets (test code 133 See_Comment L [Autom ated = 777-3) message] The system which generated this result transmit levi reference range : 150 - 450 K/CU MM. The reference range was not u sed to interpret th is result as normal/abnormal . BRANDI (test code = BRANDI) [employer] Machine Operator ID - [id number] Lab Interpretation Abnormal (test code = 84474-9) [facility] [id number] 13:39:36 Test Item Value Reference Range Interpretation Comments Platelets (test code 133 See_Comment L [Autom ated = 777-3) message] The system which generated this result transmit levi reference range : 150 - 450 K/CU MM. The reference range was not u sed to interpret th is result as normal/abnormal . BRANDI (test code = BRANDI) [employer] Machine Operator ID - [id number] Lab Interpretation Abnormal (test code = 84563-9) [facility] [id number] 13:39:36 Test Item Value Reference Range Interpretation Comments Platelets (test code 133 See_Comment L [Autom ated = 777-3) message] The system which generated this result transmit levi reference range : 150 - 450 K/CU MM. The reference range was not u sed to interpret th is result as normal/abnormal . BRANDI (test code = BRANDI) [employer] Machine Operator ID - [id number] Lab Interpretation Abnormal (test code = 68666-4) [facility] [id number] 13:39:36 Test Item Value Reference Range Interpretation Comments Platelets (test code 133 See_Comment L [Autom ated = 777-3) message] The system which generated this result transmit levi reference range : 150 - 450 K/CU MM. The reference range was not u sed to interpret th is result as normal/abnormal . BRANDI (test code = BRANDI) [employer] Machine Operator ID - [id number] Lab Interpretation Abnormal (test code = 04199-6) [facility] [id number] 13:39:36 Test Item Value Reference Range Interpretation Comments Platelets (test code 133 See_Comment L [Autom ated = 777-3) message] The system which generated this result transmit levi reference range : 150 - 450 K/CU MM. The reference range was not u sed to interpret th is result as normal/abnormal . BRANDI (test code = BRANDI) [employer] Machine Operator ID - [id number] Lab Interpretation Abnormal (test code = 16373-7) [facility] [id number] 13:39:36 Test Item Value Reference Range Interpretation Comments Platelets (test code 133 See_Comment L [Autom ated = 777-3) message] The system which generated this result transmit levi reference range : 150 - 450 K/CU MM. The reference range was not u sed to interpret th is result as normal/abnormal . BRANDI (test code = BRANDI) [employer] Machine Operator ID - [id number] Lab Interpretation Abnormal (test code = 60634-9) [facility] [id number] 13:39:36 Test Item Value Reference Range Interpretation Comments Platelets (test code 133 See_Comment L [Autom ated = 777-3) message] The system which generated this result transmit levi reference range : 150 - 450 K/CU MM. The reference range was not u sed to interpret th is result as normal/abnormal . BRANDI (test code = BRANDI) [employer] Machine Operator ID - [id number] Lab Interpretation Abnormal (test code = 43959-9) [facility] [id number] 13:39:36 Test Item Value Reference Range Interpretation Comments Platelets (test code 133 See_Comment L [Autom ated = 777-3) message] The system which generated this result transmit levi reference range : 150 - 450 K/CU MM. The reference range was not u sed to interpret th is result as normal/abnormal . BRANDI (test code = BRANDI) [employer] Machine Operator ID - [id number] Lab Interpretation Abnormal (test code = 78113-2) [facility] [id number] 13:39:36 Test Item Value Reference Range Interpretation Comments Platelets (test code 133 See_Comment L [Autom ated = 777-3) message] The system which generated this result transmit levi reference range : 150 - 450 K/CU MM. The reference range was not u sed to interpret th is result as normal/abnormal . BRANDI (test code = BRANDI) [employer] Machine Operator ID - [id number] Lab Interpretation Abnormal (test code = 21826-4) [facility] [id number] 13:39:36 Test Item Value Reference Range Interpretation Comments Platelets (test code 133 See_Comment L [Autom ated = 777-3) message] The system which generated this result transmit levi reference range : 150 - 450 K/CU MM. The reference range was not u sed to interpret th is result as normal/abnormal . BRANDI (test code = BRANDI) [employer] Machine Operator ID - [id number] Lab Interpretation Abnormal (test code = 63689-5) [facility] [id number] 13:39:36 Test Item Value Reference Range Interpretation Comments PLATELET COUNT (BEAKER) (test 133 K/CU MM 150-450 L code = 756) [employer] Machine Operator ID - [id number] (H&H) - STAT [id number] 13:26:47 Test Item Value Reference Range Interpretation Comments HEMOGLOBIN (BEAKER) (test code = 7.4 GM/DL 12.0-15.0 L 410) HEMATOCRIT (BEAKER) (test code = 22.0 % 36.0-45.0 L 411) GLUCOSE-STAT [id number] 13:26:46 Test Item Value Reference Range Interpretation Comments GLUCOSE RANDOM (BEAKER) (test code 199 mg/dL 70-110 H = 652) SODIUM NA-STAT [id number] 13:26:46 Test Item Value Reference Range Interpretation Comments SODIUM (BEAKER) (test code = 381) 134 meq/L 136-145 L CALCIUM, [id number] 13:26:40 Test Item Value Reference Range Interpretation Comments CALCIUM IONIZED (BEAKER) (test 1.03 mmol/L 1.12-1.27 L code = 698) PH, BLOOD (BEAKER) (test code = 7.33 1810) BLOOD GAS, [id number] 13:26:34 Test Item Value Reference Range Interpretation [...] (BEAKER) (test code = 1819) 100.0 POTASSIUM-STAT [id number] 13:24:59 Test Item Value Reference Range Interpretation Comments POTASSIUM (BEAKER) (test code = 4.5 meq/L 3.6-5.5 379) PLATELET [id number] 13:18:08 Test Item Value Reference Range Interpretation Comments PLATELET COUNT (BEAKER) (test code 53 K/CU MM 150-450 L = 756) [employer] Machine Operator ID - [id number] ID - [id number] ID - [id number] 12:53:55 Test Item Value Reference Range Interpretation Comments PARTIAL THROMBOPLASTIN TIME > seconds 22.5-36.0 HH (BEAKER) (test code = 760) [id number] 12:36:04 Test Item Value Reference Range Interpretation Comments FIBRINOGEN LEVEL (BEAKER) (test 289 mg/dl 225-434 code = 658) PROTHROMBIN TIME/[id number] 12:35:28 Test Item Value Reference Range Interpretation Comments PROTIME (BEAKER) 25.4 seconds 11.9-14.2 H (test code = 759) INR (BEAKER) (test 2.35 See_Comment [Automat ed message] code = 370) The system [employer] generated this result transmitted ref erence range: <=5.90. The reference range was not used to int erpret this result as normal/abnormal . RECOMMENDED COUMADIN/WARFARIN INR THERAPY RANGESSTANDARD DOSE: 2.0 - 3.0 Includes: PROPHYLAXIS for venous thrombosis, systemic embolization; TREATMENT for venous thrombosis and/or pulmonary embolus.HIGH RISK: Target INR is 2.5-3.5 for patients with mechanical heart valves.HGB/HCT (H&H) - STAT [id number] 12:28:06 Test Item Value Reference Range Interpretation Comments HEMOGLOBIN (BEAKER) (test code = 9.3 GM/DL 12.0-15.0 L 410) HEMATOCRIT (BEAKER) (test code = 27.0 % 36.0-45.0 L 411) SODIUM NA-STAT [id number] 12:28:05 Test Item Value Reference Range Interpretation Comments SODIUM (BEAKER) (test code = 381) 133 meq/L 136-145 L GLUCOSE-STAT [id number] 12:28:05 Test Item Value Reference Range Interpretation Comments GLUCOSE RANDOM (BEAKER) (test code 189 mg/dL 70-110 H = 652) BLOOD GAS, [id number] 12:28:04 Test Item Value Reference Range Interpretation [...] (BEAKER) (test code = 1819) 75.0 POTASSIUM-STAT [id number] 12:27:48 Test Item Value Reference Range Interpretation Comments POTASSIUM (BEAKER) (test code = 5.5 meq/L 3.6-5.5 379) BLOOD GAS, [id number] 11:48:59 Test Item Value Reference Range Interpretation [...] (BEAKER) (test code = 1819) 70.0 GLUCOSE-STAT [id number] 11:47:10 Test Item Value Reference Range Interpretation Comments GLUCOSE RANDOM (BEAKER) (test code 186 mg/dL 70-110 H = 652) HGB/HCT (H&H) - STAT [id number] 11:47:10 Test Item Value Reference Range Interpretation Comments HEMOGLOBIN (BEAKER) (test code = 8.9 GM/DL 12.0-15.0 L 410) HEMATOCRIT (BEAKER) (test code = 26.0 % 36.0-45.0 L 411) SODIUM NA-STAT [id number] 11:47:09 Test Item Value Reference Range Interpretation Comments SODIUM (BEAKER) (test code = 381) 133 meq/L 136-145 L POTASSIUM-STAT [id number] 11:46:29 Test Item Value Reference Range Interpretation Comments POTASSIUM (BEAKER) (test code = 5.3 meq/L 3.6-5.5 379) HGB/HCT (H&H) - STAT [id number] 11:17:46 Test Item Value Reference Range Interpretation Comments HEMOGLOBIN (BEAKER) (test code = 9.6 GM/DL 12.0-15.0 L 410) HEMATOCRIT (BEAKER) (test code = 28.0 % 36.0-45.0 L 411) SODIUM NA-STAT [id number] 11:17:45 Test Item Value Reference Range Interpretation Comments SODIUM (BEAKER) (test code = 381) 133 meq/L 136-145 L BLOOD GAS, [id number] 11:17:39 Test Item Value Reference Range Interpretation [...] (BEAKER) (test code = 1819) 70.0 GLUCOSE-STAT [id number] 11:17:39 Test Item Value Reference Range Interpretation Comments GLUCOSE RANDOM (BEAKER) (test code 171 mg/dL 70-110 H = 652) POTASSIUM-STAT [id number] 11:17:36 Test Item Value Reference Range Interpretation Comments POTASSIUM (BEAKER) (test code = 5.1 meq/L 3.6-5.5 379) HGB/HCT (H&H) - STAT [id number] 10:50:26 Test Item Value Reference Range Interpretation Comments HEMOGLOBIN (BEAKER) (test code = 8.4 GM/DL 12.0-15.0 L 410) HEMATOCRIT (BEAKER) (test code = 25.0 % 36.0-45.0 L 411) SODIUM NA-STAT [id number] 10:50:25 Test Item Value Reference Range Interpretation Comments SODIUM (BEAKER) (test code = 381) 133 meq/L 136-145 L GLUCOSE-STAT [id number] 10:50:25 Test Item Value Reference Range Interpretation Comments GLUCOSE RANDOM (BEAKER) (test code 134 mg/dL 70-110 H = 652) BLOOD GAS, [id number] 10:50:24 Test Item Value Reference Range Interpretation [...] (BEAKER) (test code = 1819) 100.0 POTASSIUM-STAT [id number] 10:49:45 Test Item Value Reference Range Interpretation Comments POTASSIUM (BEAKER) (test code = 3.8 meq/L 3.6-5.5 379) Hemoglobin [id number] 09:30:26 Test Item Value Reference Range Interpretation [...] ADM Lab Interpretation Abnormal (test code = 47462-0) [id number]26 Test Item Value Reference Range Interpretation [...] ADM Lab Interpretation Abnormal (test code = 28644-7) [facility] [id number] 09:30:26 Test Item Value Reference Range Interpretation [...] ADM Lab Interpretation Abnormal (test code = 23182-6) [facility] [id number] 09:30:26 Test Item Value Reference Range Interpretation [...] ADM Lab Interpretation Abnormal (test code = 91163-2) [facility] [id number] 09:30:26 Test Item Value Reference Range Interpretation [...] ADM Lab Interpretation Abnormal (test code = 69659-5) [facility] [id number] 09:30:26 Test Item Value Reference Range Interpretation [...] ADM Lab Interpretation Abnormal (test code = 04614-7) [facility] [id number] 09:30:26 Test Item Value Reference Range Interpretation [...] ADM Lab Interpretation Abnormal (test code = 53960-0) [facility] [id number] 09:30:26 Test Item Value Reference Range Interpretation [...] ADM Lab Interpretation Abnormal (test code = 48871-0) [facility] [id number] 09:30:26 Test Item Value Reference Range Interpretation [...] ADM Lab Interpretation Abnormal (test code = 18800-2) [facility] [id number] 09:30:26 Test Item Value Reference Range Interpretation [...] ADM Lab Interpretation Abnormal (test code = 36473-2) [facility] [id number] 09:30:26 Test Item Value Reference Range Interpretation [...] ADM Lab Interpretation Abnormal (test code = 50133-1) [facility] [id number] 09:30:26 Test Item Value Reference Range Interpretation [...] ADM Lab Interpretation Abnormal (test code = 85785-1) [facility] [id number] 09:30:26 Test Item Value Reference Range Interpretation [...] ADM Lab Interpretation Abnormal (test code = 05498-9) [facility] [id number] 09:30:26 Test Item Value Reference Range Interpretation [...] ADM Lab Interpretation Abnormal (test code = 08011-4) [facility] [id number] 09:30:26 Test Item Value Reference Range Interpretation [...] ADM Lab Interpretation Abnormal (test code = 40017-5) [facility] [id number] 09:30:26 Test Item Value Reference Range Interpretation [...] ADM Lab Interpretation Abnormal (test code = 48850-6) [facility] [id number] 09:30:26 Test Item Value Reference Range Interpretation Comments HEMOGLOBIN A1C 6.9 % See_Comment H [Automated m essage] ELECTROPHORESIS (BEAKER) The system which (test code = 3811) generated this result transmitted ref erence range: <=5.6%. The reference range was not used to int erpret this result as normal/abnormal . "The A1c is measured using a [facility]-certified method. HbA1c value equal to or greater than 6.5% as thediagnosis cutoff for diabetes. An HbA1c value of 5.7- 6.4% indicates increased risk for diabetes (prediabetes)."[employer] Machine Operator ID - ADM HGB/HCT (H&H) - STAT [id number] 09:13:03 Test Item Value Reference Range Interpretation Comments HEMOGLOBIN (BEAKER) (test code = 9.0 GM/DL 12.0-15.0 L 410) HEMATOCRIT (BEAKER) (test code = 26.0 % 36.0-45.0 L 411) SODIUM NA-STAT [id number] 09:13:02 Test Item Value Reference Range Interpretation Comments SODIUM (BEAKER) (test code = 381) 134 meq/L 136-145 L GLUCOSE-STAT [id number] 09:13:02 Test Item Value Reference Range Interpretation Comments GLUCOSE RANDOM (BEAKER) (test code 112 mg/dL 70-110 H = 652) BLOOD GAS, [id number] 09:13:01 Test Item Value Reference Range Interpretation [...] (BEAKER) (test code = 1819) 100.0 CALCIUM, [id number] 09:13:00 Test Item Value Reference Range Interpretation Comments CALCIUM IONIZED (BEAKER) (test 1.09 mmol/L 1.12-1.27 L code = 698) PH, BLOOD (BEAKER) (test code = 7.46 1810) POTASSIUM-STAT [id number] 09:12:15 Test Item Value Reference Range Interpretation Comments POTASSIUM (BEAKER) (test code = 3.7 meq/L 3.6-5.5 379) BASIC METABOLIC [id number] 07:11:03 Test Item Value Reference Range Interpretation [...] S NOT APPLICABLE FOR DIALYSIS PATIEN TS. [employer] Machine Operator ID - HIEN [id number] 06:29:42 Test Item Value Reference Range Interpretation Comments PHOSPHORUS (BEAKER) (test code = 4.7 mg/dL 2.3-4.7 604) [employer] Machine Operator ID - HIEN [id number] 06:29:41 Test Item Value Reference Range Interpretation Comments MAGNESIUM (BEAKER) (test code = 2.0 mg/dL 1.6-2.6 627) [employer] Machine Operator ID - HIEN MCBC W/PLT COUNT & AUTO [id number] 06:04:09 Test Item Value Reference Range Interpretation [...] code = 2801) RAD, ABDOMEN/KUB, 1 VIEW [id number] 02:55:00Reason for exam:->abdominal painR[facility] : 1955 Sex: [...] no acute bony abnormality. Signed: [facility] Verified Date/Time: 06/18/2021 02:55:15 POCT-GLUCOSE [id number] 21:39:12 Test Item Value Reference Range Interpretation Comments POC-GLUCOSE METER 135 mg/dL 70-110 H : TESTED A T [facility] 6720 (BEAKER) (test code = YUDY [place]ITE [place], 1538) [address]: [employer] Machine Operator/Techni kelle ID = [id number] for Eliezer Jerome HEMOGLOBIN AND [id number] 21:31:20 Test Item Value Reference Range Interpretation Comments HEMOGLOBIN (BEAKER) (test code = 6.9 GM/DL 11.2-15.7 L 410) HEMATOCRIT (BEAKER) (test code = 21.8 % 34.1-44.9 L 411) [employer] Machine Operator ID - [id number] ID - [id number], [id number] 18:33:00Unlisted Reason for Exam - Click Yes and Enter Reason Below->NoIs this for enterography?->NoPlease specify:->Renal Stone Protocolalso look for spleen if there is any infarct causing left flankpainWill this procedure require oral contrast?->NoDIANE SAN [facility]Name: [facility] : 1955 Sex: [...] MDReport Verified Date/Time: 06/17/2021 18:33:28 Reading Location: [address] Reading Room Comprehensive metabolic [id number] 16:18:22 Test Item Value Reference Range Interpretation Comments Protein, Total (test 7.0 See_Comment [Autom ated code = 2885-2) message] The system which generated this result transmit levi reference range : 6.0 - 8.3 gm/dL . The reference range was not u sed to interpret th is result as normal/abnormal . Albumin (test code = 2.7 g/dL 3.5-5.0 L 03782-4) Alkaline Phosphatase 99 U/L 40-150 (test code [...] Calcium (test code = 8.4 mg/dL 8.4-10.2 27555-0) AST (test code = 17 U/L 5-34 1920-8) ALT (test code = 10 U/L 6-55 1742-6) EGFR (test code = 11 mL/min/1.[place] [address]-3) NOT ACCURATE CREATININE CLEARANCE IN PREDICTING GLOMERULAR FILTRATION RATE . ESTIMATED GFR I S NOT APPLICABLE FOR DIALYSIS PATIEN TSEsvin BRANDI (test code = BRANDI) [employer] Machine Operator ID - BS Lab Interpretation Abnormal (test code = 48613-9) [facility] [id number] 16:18:22 Test Item Value Reference Range Interpretation Comments Protein, Total (test 7.0 See_Comment [Autom ated code = 2885-2) message] The system which generated this result transmit levi reference range : 6.0 - 8.3 gm/dL . The reference range was not u sed to interpret th is result as normal/abnormal . Albumin (test code = 2.7 g/dL 3.5-5.0 L 12481-4) Alkaline Phosphatase 99 U/L 40-150 (test code [...] Calcium (test code = 8.4 mg/dL 8.4-10.2 54249-5) AST (test code = 17 U/L 5-34 1920-8) ALT (test code = 10 U/L 6-55 1742-6) EGFR (test code = 11 mL/min/1.[place] [address]-3) NOT ACCURATE CREATININE CLEARANCE IN PREDICTING GLOMERULAR FILTRATION RATE . ESTIMATED GFR I S NOT APPLICABLE FOR DIALYSIS PATIEN TS. BRANDI (test code = BRANDI) [employer] Machine Operator ID - BS Lab Interpretation Abnormal (test code = 32223-6) [facility] [id number] 16:18:22 Test Item Value Reference Range Interpretation Comments Protein, Total (test 7.0 See_Comment [Autom ated code = 2885-2) message] The system which generated this result transmit levi reference range : 6.0 - 8.3 gm/dL . The reference range was not u sed to interpret th is result as normal/abnormal . Albumin (test code = 2.7 g/dL 3.5-5.0 L 82190-3) Alkaline Phosphatase 99 U/L 40-150 (test code [...] Calcium (test code = 8.4 mg/dL 8.4-10.2 99632-2) AST (test code = 17 U/L 5-34 1920-8) ALT (test code = 10 U/L 6-55 1742-6) EGFR (test code = 11 mL/min/1.[place] [address]-5) NOT ACCURATE CREATININE CLEARANCE IN PREDICTING GLOMERULAR FILTRATION RATE . ESTIMATED GFR I S NOT APPLICABLE FOR DIALYSIS PATIEN TS. BRANDI (test code = BRANDI) [employer] Machine Operator ID - BS Lab Interpretation Abnormal (test code = 44294-8) [facility] [id number] 16:18:22 Test Item Value Reference Range Interpretation Comments Protein, Total (test 7.0 See_Comment [Autom ated code = 2885-2) message] The system which generated this result transmit levi reference range : 6.0 - 8.3 gm/dL . The reference range was not u sed to interpret th is result as normal/abnormal . Albumin (test code = 2.7 g/dL 3.5-5.0 L 54408-4) Alkaline Phosphatase 99 U/L 40-150 (test code [...] Calcium (test code = 8.4 mg/dL 8.4-10.2 01821-6) AST (test code = 17 U/L 5-1919-8) ALT (test code = 10 U/L 1742-6) EGFR (test code = 11 mL/min/1.[place] [address]-7) NOT ACCURATE CREATININE CLEARANCE IN PREDICTING GLOMERULAR FILTRATION RATE . ESTIMATED GFR I S NOT APPLICABLE FOR DIALYSIS PATIEN TSEsvin BRANDI (test code = BRANDI) [employer] Machine Operator ID - BS Lab Interpretation Abnormal (test code = 92092-0) [facility] [id number] 16:18:22 Test Item Value Reference Range Interpretation Comments Protein, Total (test 7.0 See_Comment [Autom ated code = 2885-2) message] The system which generated this result transmit levi reference range : 6.0 - 8.3 gm/dL . The reference range was not u sed to interpret th is result as normal/abnormal . Albumin (test code = 2.7 g/dL 3.5-5.0 L 04475-4) Alkaline Phosphatase 99 U/L 40-150 (test code = 6768-6) Total Bilirubin (test 0.4 mg/dL 0.2-1.2 code = 1975-2) Sodium (test code = 135 meq/L 136-145 L 2951-2) Potassium (test code 3.7 meq/L 3.5-5.1 = 2823-3) Chloride (test code = 100 meq/L 98-107 2075-0) CO2 (test code = 29 meq/L 22-29 2028-9) BUN (test code = 17 mg/dL 7- 3094-0) Creatinine (test code 4.22 mg/dL 0.57-1.25 H = 2160-0) Glucose (test code = 109 mg/dL 70-105 H 2345-7) Calcium (test code = 8.4 mg/dL 8.4-10.2 64982-7) AST (test code = 17 U/L -1919-8) ALT (test code = 10 U/L 2-6) EGFR (test code = 11 mL/min/1.[place] [address]-9) NOT ACCURATE CREATININE CLEARANCE IN PREDICTING GLOMERULAR FILTRATION RATE . ESTIMATED GFR I S NOT APPLICABLE FOR DIALYSIS PATIEN TSEsvin BRANDI (test code = BRANDI) [employer] Machine Operator ID - BS Lab Interpretation Abnormal (test code = 53980-5) [facility] [id number] 16:18:22 Test Item Value Reference Range Interpretation Comments Protein, Total (test 7.0 See_Comment [Autom ated code = 2885-2) message] The system which generated this result transmit levi reference range : 6.0 - 8.3 gm/dL . The reference range was not u sed to interpret th is result as normal/abnormal . Albumin (test code = 2.7 g/dL 3.5-5.0 L 29205-3) Alkaline Phosphatase 99 U/L 40-150 (test code [...] Calcium (test code = 8.4 mg/dL 8.4-10.2 06818-0) AST (test code = 17 U/L 5-34 1920-8) ALT (test code = 10 U/L 6-55 1742-6) EGFR (test code = 11 mL/min/1.[place] [address]-5) NOT ACCURATE CREATININE CLEARANCE IN PREDICTING GLOMERULAR FILTRATION RATE . ESTIMATED GFR I S NOT APPLICABLE FOR DIALYSIS PATIEN BRANDI (test code = BRANDI) [employer] Machine Operator ID - BS Lab Interpretation Abnormal (test code = 33398-1) [facility] [id number] 16:18:22 Test Item Value Reference Range Interpretation Comments Protein, Total (test 7.0 See_Comment [Autom ated code = 2885-2) message] The system which generated this result transmit levi reference range : 6.0 - 8.3 gm/dL . The reference range was not u sed to interpret th is result as normal/abnormal . Albumin (test code = 2.7 g/dL 3.5-5.0 L 22501-0) Alkaline Phosphatase 99 U/L 40-150 (test code [...] Calcium (test code = 8.4 mg/dL 8.4-10.2 04236-8) AST (test code = 17 U/L 5-34 1920-8) ALT (test code = 10 U/L 6-55 1742-6) EGFR (test code = 11 mL/min/1.[place] [address]-9) NOT ACCURATE CREATININE CLEARANCE IN PREDICTING GLOMERULAR FILTRATION RATE . ESTIMATED GFR I S NOT APPLICABLE FOR DIALYSIS PATIEN TS. BRANDI (test code = BRANDI) [employer] Machine Operator ID - BS Lab Interpretation Abnormal (test code = 06314-8) [facility] [id number] 16:18:22 Test Item Value Reference Range Interpretation Comments Protein, Total (test 7.0 See_Comment [Autom ated code = 2885-2) message] The system which generated this result transmit levi reference range : 6.0 - 8.3 gm/dL . The reference range was not u sed to interpret th is result as normal/abnormal . Albumin (test code = 2.7 g/dL 3.5-5.0 L 68355-7) Alkaline Phosphatase 99 U/L 40-150 (test code [...] Calcium (test code = 8.4 mg/dL 8.4-10.2 48455-5) AST (test code = 17 U/L 5-34 1920-8) ALT (test code = 10 U/L 6-55 1742-6) EGFR (test code = 11 mL/min/1.73 sq m [facility] [place] [address]-8) NOT ACCURATE CREATININE CLEARANCE IN PREDICTING GLOMERULAR FILTRATION RATE . ESTIMATED GFR I S NOT APPLICABLE FOR DIALYSIS PATIEN TS. BRANDI (test code = BRANDI) [employer] Machine Operator ID - BS Lab Interpretation Abnormal (test code = 37689-8) [facility] [id number] 16:18:22 Test Item Value Reference Range Interpretation Comments Protein, Total (test 7.0 See_Comment [Autom ated code = 2885-2) message] The system which generated this result transmit levi reference range : 6.0 - 8.3 gm/dL . The reference range was not u sed to interpret th is result as normal/abnormal . Albumin (test code = 2.7 g/dL 3.5-5.0 L 90984-8) Alkaline Phosphatase 99 U/L 40-150 (test code [...] Calcium (test code = 8.4 mg/dL 8.4-10.2 72317-6) AST (test code = 17 U/L 5-34 1920-8) ALT (test code = 10 U/L 6-55 1742-6) EGFR (test code = 11 mL/min/1.[place] [address]-4) NOT ACCURATE CREATININE CLEARANCE IN PREDICTING GLOMERULAR FILTRATION RATE . ESTIMATED GFR I S NOT APPLICABLE FOR DIALYSIS PATIEN BRANDI (test code = BRANDI) [employer] Machine Operator ID - BS Lab Interpretation Abnormal (test code = 40761-0) [facility] [id number] 16:18:22 Test Item Value Reference Range Interpretation Comments Protein, Total (test 7.0 See_Comment [Autom ated code = 2885-2) message] The system which generated this result transmit levi reference range : 6.0 - 8.3 gm/dL . The reference range was not u sed to interpret th is result as normal/abnormal . Albumin (test code = 2.7 g/dL 3.5-5.0 L 66318-6) Alkaline Phosphatase 99 U/L 40-150 (test code [...] Calcium (test code = 8.4 mg/dL 8.4-10.2 71369-1) AST (test code = 17 U/L -1919-8) ALT (test code = 10 U/L 1741-6) EGFR (test code = 11 mL/min/1.[place] [address]-6) NOT ACCURATE CREATININE CLEARANCE IN PREDICTING GLOMERULAR FILTRATION RATE . ESTIMATED GFR I S NOT APPLICABLE FOR DIALYSIS PATIEN BRANDI (test code = BRANDI) [employer] Machine Operator ID - BS Lab Interpretation Abnormal (test code = 34828-9) [facility] [id number] 16:18:22 Test Item Value Reference Range Interpretation Comments Protein, Total (test 7.0 See_Comment [Autom ated code = 2885-2) message] The system which generated this result transmit levi reference range : 6.0 - 8.3 gm/dL . The reference range was not u sed to interpret th is result as normal/abnormal . Albumin (test code = 2.7 g/dL 3.5-5.0 L 79393-7) Alkaline Phosphatase 99 U/L 40-150 (test code [...] Calcium (test code = 8.4 mg/dL 8.4-10.2 62254-5) AST (test code = 17 U/L -34 1919-8) ALT (test code = 10 U/L 1741-6) EGFR (test code = 11 mL/min/1.[place] [address]-6) NOT ACCURATE CREATININE CLEARANCE IN PREDICTING GLOMERULAR FILTRATION RATE . ESTIMATED GFR I S NOT APPLICABLE FOR DIALYSIS PATIEN TS. BRANDI (test code = BRANDI) [employer] Machine Operator ID - BS Lab Interpretation Abnormal (test code = 87939-0) [facility] [id number] 16:18:22 Test Item Value Reference Range Interpretation Comments Protein, Total (test 7.0 See_Comment [Autom ated code = 2885-2) message] The system which generated this result transmit levi reference range : 6.0 - 8.3 gm/dL . The reference range was not u sed to interpret th is result as normal/abnormal . Albumin (test code = 2.7 g/dL 3.5-5.0 L 74664-0) Alkaline Phosphatase 99 U/L 40-150 (test code [...] Calcium (test code = 8.4 mg/dL 8.4-10.2 49886-7) AST (test code = 17 U/L 5-34 1920-8) ALT (test code = 10 U/L 6-55 1742-6) EGFR (test code = 11 mL/min/1.[place] [address]-7) NOT ACCURATE CREATININE CLEARANCE IN PREDICTING GLOMERULAR FILTRATION RATE . ESTIMATED GFR I S NOT APPLICABLE FOR DIALYSIS PATIEN TS. BRANDI (test code = BRANDI) [employer] Machine Operator ID - BS Lab Interpretation Abnormal (test code = 93681-5) [facility] [id number] 16:18:22 Test Item Value Reference Range Interpretation Comments Protein, Total (test 7.0 See_Comment [Autom ated code = 2885-2) message] The system which generated this result transmit levi reference range : 6.0 - 8.3 gm/dL . The reference range was not u sed to interpret th is result as normal/abnormal . Albumin (test code = 2.7 g/dL 3.5-5.0 L 57428-3) Alkaline Phosphatase 99 U/L 40-150 (test code [...] Calcium (test code = 8.4 mg/dL 8.4-10.2 61272-4) AST (test code = 17 U/L 5-34 1920-8) ALT (test code = 10 U/L 6-55 1742-6) EGFR (test code = 11 mL/min/1.[place] [address]-1) NOT ACCURATE CREATININE CLEARANCE IN PREDICTING GLOMERULAR FILTRATION RATE . ESTIMATED GFR I S NOT APPLICABLE FOR DIALYSIS PATIEN TSEsvin BRANDI (test code = BRANDI) [employer] Machine Operator ID - BS Lab Interpretation Abnormal (test code = 21414-0) [facility] [id number] 16:18:22 Test Item Value Reference Range Interpretation Comments Protein, Total (test 7.0 See_Comment [Autom ated code = 2885-2) message] The system which generated this result transmit levi reference range : 6.0 - 8.3 gm/dL . The reference range was not u sed to interpret th is result as normal/abnormal . Albumin (test code = 2.7 g/dL 3.5-5.0 L 99636-4) Alkaline Phosphatase 99 U/L 40-150 (test code [...] Calcium (test code = 8.4 mg/dL 8.4-10.2 20341-4) AST (test code = 17 U/L 5-34 1920-8) ALT (test code = 10 U/L 6-55 1742-6) EGFR (test code = 11 mL/min/1.[place] [address]-6) NOT ACCURATE CREATININE CLEARANCE IN PREDICTING GLOMERULAR FILTRATION RATE . ESTIMATED GFR I S NOT APPLICABLE FOR DIALYSIS PATIEN BRANDI (test code = BRANDI) [employer] Machine Operator ID - BS Lab Interpretation Abnormal (test code = 43096-6) [facility] [id number] 16:18:22 Test Item Value Reference Range Interpretation Comments Protein, Total (test 7.0 See_Comment [Autom ated code = 2885-2) message] The system which generated this result transmit levi reference range : 6.0 - 8.3 gm/dL . The reference range was not u sed to interpret th is result as normal/abnormal . Albumin (test code = 2.7 g/dL 3.5-5.0 L 33210-5) Alkaline Phosphatase 99 U/L 40-150 (test code [...] Calcium (test code = 8.4 mg/dL 8.4-10.2 72271-3) AST (test code = 17 U/L 5-34 1920-8) ALT (test code = 10 U/L 655 174-6) EGFR (test code = 11 mL/min/1.[place] [address]-2) NOT ACCURATE CREATININE CLEARANCE IN PREDICTING GLOMERULAR FILTRATION RATE . ESTIMATED GFR I S NOT APPLICABLE FOR DIALYSIS PATIEN TS. BRANDI (test code = BRANDI) [employer] Machine Operator ID - BS Lab Interpretation Abnormal (test code = 84995-7) [facility] [id number] 16:18:22 Test Item Value Reference Range Interpretation Comments Protein, Total (test 7.0 See_Comment [Autom ated code = 2885-2) message] The system which generated this result transmit levi reference range : 6.0 - 8.3 gm/dL . The reference range was not u sed to interpret th is result as normal/abnormal . Albumin (test code = 2.7 g/dL 3.5-5.0 L 93331-5) Alkaline Phosphatase 99 U/L 40-150 (test code [...] Calcium (test code = 8.4 mg/dL 8.4-10.2 42067-5) AST (test code = 17 U/L 5-34 1920-8) ALT (test code = 10 U/L 6-55 1742-6) EGFR (test code = 11 mL/min/1.73 [place] [address]-6) NOT ACCURATE CREATININE CLEARANCE IN PREDICTING GLOMERULAR FILTRATION RATE . ESTIMATED GFR I S NOT APPLICABLE FOR DIALYSIS PATIEN TSEsvin BRANDI (test code = BRANDI) [employer] Machine Operator ID - BS Lab Interpretation Abnormal (test code = 03542-2) [facility] [id number] 16:18:22 Test Item Value Reference Range Interpretation [...] S NOT APPLICABLE FOR DIALYSIS PATIEN TS. [employer] Machine Operator ID - [id number] 16:17:20 Test Item Value Reference Range Interpretation Comments MAGNESIUM (BEAKER) (test code = 1.8 mg/dL 1.6-2.6 627) [employer] Machine Operator ID - [id number] 16:10:37 Test Item Value Reference Range Interpretation Comments PARTIAL THROMBOPLASTIN TIME 34.5 seconds 22.5-36.0 (BEAKER) (test code = 760) PROTHROMBIN TIME/[id number] 16:10:03 Test Item Value Reference Range Interpretation Comments PROTIME (BEAKER) 17.2 seconds 11.9-14.2 H (test code = 759) INR (BEAKER) (test 1.43 See_Comment [Automat ed message] code = 370) The system [employer] generated this result transmitted ref erence range: <=5.90. The reference range was not used to int erpret this result as normal/abnormal . RECOMMENDED COUMADIN/WARFARIN INR THERAPY RANGESSTANDARD DOSE: 2.0 - 3.0 Includes: PROPHYLAXIS for venous thrombosis, systemic embolization; TREATMENT for venous thrombosis and/or pulmonary embolus.HIGH RISK: Target INR is 2.5-3.5 for patients with mechanical heart valves.CBC W/PLT COUNT & AUTO [id number] 16:01:31 Test Item Value Reference Range Interpretation [...] (BEAKER) (test code = 2801) NV, ANGIOGRAM, [id number] 09:13:00Reason for exam:->mycotic aneurysm rule [facility] : 1955 Sex: FFINAL REPORT DATE OF PROCEDURE: 06/16/2021 SURGEON: Mili Kent MD SPECIAL PROCEDURE TECH: Eloy Portillo MD; Alisa Monae MD PREOPERATIVE DIAGNOSIS: Subarachnoid hemorrhage POST OPERATIVE DIAGNOSIS: Nonaneurysmal subarachnoid hemorrhage PROCEDURE: Diagnostic cerebral injury ANESTHESIA: Monitored anesthesia ESTIMATED BLOOD LOSS: Minimal COMPLICATIONS: None Vessels catheterized:Right common femoral arteryRight common carotid artery, cervicalRight common carotid, cerebralLeft common carotid artery, cervicalLeft common carotid, cerebralLeft vertebral artery *FEMORAL*5F sheathBentson WireVertebral CatheterTerumo [place] wireMynx Closure Device INDICATIONS: The patient is [...] arteries are patent. There is a right RIVET HEATER variant anatomy. No evidence of aneurysm, vascular [...] cerebral artery is diminutive in size given RIVET HEATER anatomy and the the left RIVET HEATER is normal in caliber and contour. No [...] MDReport Verified Date/Time: 06/17/2021 09:13:43 Reading Location: [facility] Y026 Neuro Angio Reading Room BASIC METABOLIC [id number] 05:09:41 Test Item Value Reference Range Interpretation [...] S NOT APPLICABLE FOR DIALYSIS PATIEN TS. [employer] Machine Operator ID - HIEN [id number] 05:07:06 Test Item Value Reference Range Interpretation Comments MAGNESIUM (BEAKER) (test code = 2.1 mg/dL 1.6-2.6 627) [employer] Machine Operator ID - HIEN [id number] 05:07:06 Test Item Value Reference Range Interpretation Comments PHOSPHORUS (BEAKER) (test code = 5.7 mg/dL 2.3-4.7 H 604) [employer] Machine Operator ID - HIEN MCBC W/PLT COUNT & AUTO [id number] 04:38:56 Test Item Value Reference Range Interpretation [...] PERCENT (BEAKER) (test code = 2801) POCT-GLUCOSE [id number] 00:10:32 Test Item Value Reference Range Interpretation Comments POC-GLUCOSE METER 221 mg/dL 70-110 H : TESTED [facility]ata [facility] 6720 (BEAKER) (test code = YUDY [place], 1538) 19522: Paper Products Machine Operator/Techni kelle ID = [id number] for ELROY HNSON, JEQUETTA POCT-GLUCOSE [id number] 18:11:32 Test Item Value Reference Range Interpretation Comments POC-GLUCOSE METER 170 mg/dL 70-110 H : TESTED A T [facility] 6720 (BEAKER) (test code = YUDY [place], 1538) 62282: [employer] Machine Operator/Techni kelle ID = [id number] for An Onelia ramirez Blood [id number] 14:00:39 Test Item Value Reference Range Interpretation Comments Result (test code = No growth in 5 days 6463-4) [facility] [id number] 14:00:39 Test Item Value Reference Range Interpretation Comments Result (test code = No growth in 5 days 6463-4) [facility] [id number] 14:00:39 Test Item Value Reference Range Interpretation Comments Result (test code = No growth in 5 days 6463-4) [facility] [id number] 14:00:39 Test Item Value Reference Range Interpretation Comments Result (test code = No growth in 5 days 6463-4) [facility] [id number] 14:00:39 Test Item Value Reference Range Interpretation Comments Result (test code = No growth in 5 days 6463-4) [facility] [id number] 14:00:39 Test Item Value Reference Range Interpretation Comments Result (test code = No growth in 5 days 6463-4) [facility]2022-03-15 14:00:39 Test Item Value Reference Range Interpretation Comments Result (test code = No growth in 5 days 6463-4) [facility] [id number] 14:00:39 Test Item Value Reference Range Interpretation Comments Result (test code = No growth in 5 days 6463-4) [facility]2022-03-15 14:00:39 Test Item Value Reference Range Interpretation Comments Result (test code = No growth in 5 days 6463-4) [facility]2022-03-15 14:00:39 Test Item Value Reference Range Interpretation Comments Result (test code = No growth in 5 days 6463-4) [facility]2022-03-15 14:00:39 Test Item Value Reference Range Interpretation Comments Result (test code = No growth in 5 days 6463-4) [facility]2022-03-15 14:00:39 Test Item Value Reference Range Interpretation Comments Result (test code = No growth in 5 days 6463-4) [facility]2022-03-15 14:00:39 Test Item Value Reference Range Interpretation Comments Result (test code = No growth in 5 days 6463-4) [facility]2022-03-15 14:00:39 Test Item Value Reference Range Interpretation Comments Result (test code = No growth in 5 days 6463-4) [facility]2022-03-15 14:00:39 Test Item Value Reference Range Interpretation Comments Result (test code = No growth in 5 days 6463-4) [facility]2022-03-15 14:00:39 Test Item Value Reference Range Interpretation Comments Result (test code = No growth in 5 days 6463-4) [facility]2022-03-15 14:00:39 Test Item Value Reference Range Interpretation Comments CULTURE (BEAKER) (test No growth in 5 days code = 1095) MR, BRAIN, WITHOUT [id number] 13:02:00Pt has [place] scientific ESSENTIO MRI L111/ [id number] Unlisted Reason for Exam - Click Yes and Enter Reason Below- >No Deos the patient have an implanted electronic device?->Yes [place] scientific ESSENTIO MRI L111/ [id number] [facility] MONTOYA : 1955 Sex: FFINAL REPORT MR, BRAIN, [...] Cosme Verified Date/Time: 06/16/2021 13:02:07 Reading Location: [address] Neuro Reading Room D [id number] 08:00:27 Test Item Value Reference Range Interpretation Comments CULTURE (BEAKER) (test No growth in 5 days code = 1095) POCT-GLUCOSE [id number] 07:30:10 Test Item Value Reference Range Interpretation Comments POC-GLUCOSE METER 159 mg/dL 70-110 H : TESTED A T [facility] 6720 (BEAKER) (test code = QUIQUEANTELMO [place]ITE [place], 1538) 78503: Paper Products Machine Operator/Techni kelle ID = [id number] for An Onelia ramirez BASIC METABOLIC [id number] 05:42:18 Test Item Value Reference Range Interpretation [...] S NOT APPLICABLE FOR DIALYSIS PATIEN TS. [employer] Machine Operator ID - RAKAN [id number] 05:35:31 Test Item Value Reference Range Interpretation Comments MAGNESIUM (BEAKER) (test code = 2.1 mg/dL 1.6-2.6 627) [employer] Machine Operator ID - RAKAN [id number] 05:35:31 Test Item Value Reference Range Interpretation Comments PHOSPHORUS (BEAKER) (test code = 4.5 mg/dL 2.3-4.7 604) [employer] Machine Operator ID - RAKAN WCBC W/PLT COUNT & AUTO [id number] 04:43:33 Test Item Value Reference Range Interpretation [...] PERCENT (BEAKER) (test code = 2801) BLOOD [id number] 00:00:28 Test Item Value Reference Range Interpretation Comments CULTURE (BEAKER) (test No growth in 5 days code = 1095) The specimen volume collected for this blood culture was below the optimum (10 mL per bottle or 20 mL total). Use of lower volumes may adversely affect recovery and/or detection times of some organisms.POCT-GLUCOSE [id number] 21:39:58 Test Item Value Reference Range Interpretation Comments POC-GLUCOSE METER 173 mg/dL 70-110 H : Notified RN/MD: (AKASH) (test code = TESTED AT [facility] 6720 1628) [facility], [address]: Paper Products Machine Operator/Techni kelle ID = [id number] for DE NNIS, EMANUEL Hepatic function [id number] 15:52:11 Test Item Value Reference Range Interpretation Comments Protein, Total (test 6.8 See_Comment [Autom ated code = 2885-2) message] The system which generated this result transmit levi reference range : 6.0 - 8.3 gm/dL . The reference range was not u sed to interpret th is result as normal/abnormal . Albumin (test code = 2.6 g/dL 3.5-5.0 L 47821-7) Total Bilirubin (test 0.3 mg/dL 0.2-1.2 code = 1974-) Bilirubin, Direct 0.2 mg/dL 0.1-0.5 (test code = 1967-10) Alkaline Phosphatase 90 U/L 40-150 (test code = 6768-6) AST (test code = 17 U/L 1920-8) ALT (test code = 11 U/L 1742-6) BRANDI (test code = BRANDI) [employer] Machine Operator ID - PIAYA L Lab Interpretation Abnormal (test code = 67426-8) [facility] [id number] 15:52:11 Test Item Value Reference Range Interpretation Comments Protein, Total (test 6.8 See_Comment [Autom ated code = 2885-2) message] The system which generated this result transmit levi reference range : 6.0 - 8.3 gm/dL . The reference range was not u sed to interpret th is result as normal/abnormal . Albumin (test code = 2.6 g/dL 3.5-5.0 L 03862-9) Total Bilirubin (test 0.3 mg/dL 0.2-1.2 code = 1974-05) Bilirubin, Direct 0.2 mg/dL 0.1-0.5 (test code = 1967-10) Alkaline Phosphatase 90 U/L 40-150 (test code = 6768-6) AST (test code = 17 U/L 34 1920-8) ALT (test code = 11 U/L 1742-6) BRANDI (test code = BRANDI) [employer] Machine Operator ID - PIAYA L Lab Interpretation Abnormal (test code = 67861-8) [facility] [id number] 15:52:11 Test Item Value Reference Range Interpretation Comments Protein, Total (test 6.8 See_Comment [Autom ated code = 2885-2) message] The system which generated this result transmit levi reference range : 6.0 - 8.3 gm/dL . The reference range was not u sed to interpret th is result as normal/abnormal . Albumin (test code = 2.6 g/dL 3.5-5.0 L 47470-1) Total Bilirubin (test 0.3 mg/dL 0.2-1.2 code = 1974-05) Bilirubin, Direct 0.2 mg/dL 0.1-0.5 (test code = 1967-10) Alkaline Phosphatase 90 U/L 40-150 (test code = 6768-6) AST (test code = 17 U/L 534 1920-8) ALT (test code = 11 U/L 1742-6) BRANDI (test code = BRANDI) [employer] Machine Operator ID - PIAYA L Lab Interpretation Abnormal (test code = 82183-6) [facility] [id number] 15:52:11 Test Item Value Reference Range Interpretation Comments Protein, Total (test 6.8 See_Comment [Autom ated code = 2885-2) message] The system which generated this result transmit levi reference range : 6.0 - 8.3 gm/dL . The reference range was not u sed to interpret th is result as normal/abnormal . Albumin (test code = 2.6 g/dL 3.5-5.0 L 73938-3) Total Bilirubin (test 0.3 mg/dL 0.2-1.2 code = 1974-05) Bilirubin, Direct 0.2 mg/dL 0.1-0.5 (test code = 1967-10) Alkaline Phosphatase 90 U/L 40-150 (test code = 6768-6) AST (test code = 17 U/L 34 1920-8) ALT (test code = 11 U/L 1742-6) BRANDI (test code = BRANDI) [employer] Machine Operator ID - PIAYA L Lab Interpretation Abnormal (test code = 74363-1) [facility] [id number] 15:52:11 Test Item Value Reference Range Interpretation Comments Protein, Total (test 6.8 See_Comment [Autom ated code = 2885-2) message] The system which generated this result transmit levi reference range : 6.0 - 8.3 gm/dL . The reference range was not u sed to interpret th is result as normal/abnormal . Albumin (test code = 2.6 g/dL 3.5-5.0 L 99493-1) Total Bilirubin (test 0.3 mg/dL 0.2-1.2 code = 1974-05) Bilirubin, Direct 0.2 mg/dL 0.1-0.5 (test code = 1967-10) Alkaline Phosphatase 90 U/L 40-150 (test code = 6768-6) AST (test code = 17 U/L 34 1919-8) ALT (test code = 11 U/L 1742-6) BRANDI (test code = BRANDI) [employer] Machine Operator ID - PIAYA L Lab Interpretation Abnormal (test code = 80148-6) [facility] [id number] 15:52:11 Test Item Value Reference Range Interpretation Comments Protein, Total (test 6.8 See_Comment [Autom ated code = 2885-2) message] The system which generated this result transmit levi reference range : 6.0 - 8.3 gm/dL . The reference range was not u sed to interpret th is result as normal/abnormal . Albumin (test code = 2.6 g/dL 3.5-5.0 L 01217-4) Total Bilirubin (test 0.3 mg/dL 0.2-1.2 code = 1974-05) Bilirubin, Direct 0.2 mg/dL 0.1-0.5 (test code = 1967-10) Alkaline Phosphatase 90 U/L 40-150 (test code = 6768-6) AST (test code = 17 U/L 1919-8) ALT (test code = 11 U/L 1742-6) BRANDI (test code = BRANDI) [employer] Machine Operator ID - PIAYA L Lab Interpretation Abnormal (test code = 72048-8) [facility] [id number] 15:52:11 Test Item Value Reference Range Interpretation Comments Protein, Total (test 6.8 See_Comment [Autom ated code = 2885-2) message] The system which generated this result transmit levi reference range : 6.0 - 8.3 gm/dL . The reference range was not u sed to interpret th is result as normal/abnormal . Albumin (test code = 2.6 g/dL 3.5-5.0 L 77734-8) Total Bilirubin (test 0.3 mg/dL 0.2-1.2 code = 1974-05) Bilirubin, Direct 0.2 mg/dL 0.1-0.5 (test code = 1967-10) Alkaline Phosphatase 90 U/L 40-150 (test code = 6768-6) AST (test code = 17 U/L 34 1920-8) ALT (test code = 11 U/L 1742-6) BRANDI (test code = BRANDI) [employer] Machine Operator ID - PIAYA L Lab Interpretation Abnormal (test code = 50499-5) [facility] [id number] 15:52:11 Test Item Value Reference Range Interpretation Comments Protein, Total (test 6.8 See_Comment [Autom ated code = 2885-2) message] The system which generated this result transmit levi reference range : 6.0 - 8.3 gm/dL . The reference range was not u sed to interpret th is result as normal/abnormal . Albumin (test code = 2.6 g/dL 3.5-5.0 L 74844-0) Total Bilirubin (test 0.3 mg/dL 0.2-1.2 code = 1974-05) Bilirubin, Direct 0.2 mg/dL 0.1-0.5 (test code = 1967-10) Alkaline Phosphatase 90 U/L 40-150 (test code = 6768-6) AST (test code = 17 U/L 34 1920-8) ALT (test code = 11 U/L 1742-6) BRANDI (test code = BRANDI) [employer] Machine Operator ID - PIAYA L Lab Interpretation Abnormal (test code = 28699-8) [facility] [id number] 15:52:11 Test Item Value Reference Range Interpretation Comments Protein, Total (test 6.8 See_Comment [Autom ated code = 2885-2) message] The system which generated this result transmit levi reference range : 6.0 - 8.3 gm/dL . The reference range was not u sed to interpret th is result as normal/abnormal . Albumin (test code = 2.6 g/dL 3.5-5.0 L 90049-0) Total Bilirubin (test 0.3 mg/dL 0.2-1.2 code = 1974-) Bilirubin, Direct 0.2 mg/dL 0.1-0.5 (test code = 1967-) Alkaline Phosphatase 90 U/L 40-150 (test code = 6768-6) AST (test code = 17 U/L 34 1920-8) ALT (test code = 11 U/L 655 1742-6) BRANDI (test code = BRANDI) [employer] Machine Operator ID - PIAYA L Lab Interpretation Abnormal (test code = 25684-0) [facility] [id number] 15:52:11 Test Item Value Reference Range Interpretation Comments Protein, Total (test 6.8 See_Comment [Autom ated code = 2885-2) message] The system which generated this result transmit levi reference range : 6.0 - 8.3 gm/dL . The reference range was not u sed to interpret th is result as normal/abnormal . Albumin (test code = 2.6 g/dL 3.5-5.0 L 02843-7) Total Bilirubin (test 0.3 mg/dL 0.2-1.2 code = 1974-) Bilirubin, Direct 0.2 mg/dL 0.1-0.5 (test code = 1967-) Alkaline Phosphatase 90 U/L 40-150 (test code = 6768-6) AST (test code = 17 U/L 34 1919-8) ALT (test code = 11 U/L 6 1742-6) BRANDI (test code = BRANDI) [employer] Machine Operator ID - PIAYA L Lab Interpretation Abnormal (test code = 06715-1) [facility] [id number] 15:52:11 Test Item Value Reference Range Interpretation Comments Protein, Total (test 6.8 See_Comment [Autom ated code = 2885-2) message] The system which generated this result transmit levi reference range : 6.0 - 8.3 gm/dL . The reference range was not u sed to interpret th is result as normal/abnormal . Albumin (test code = 2.6 g/dL 3.5-5.0 L 02979-4) Total Bilirubin (test 0.3 mg/dL 0.2-1.2 code = 1974-) Bilirubin, Direct 0.2 mg/dL 0.1-0.5 (test code = 1967-) Alkaline Phosphatase 90 U/L 40-150 (test code = 6768-6) AST (test code = 17 U/L 5-34 1920-8) ALT (test code = 11 U/L 6-55 1742-6) BRANDI (test code = BRANDI) [employer] Machine Operator ID - PIAYA L Lab Interpretation Abnormal (test code = 36215-4) [facility] [id number] 15:52:11 Test Item Value Reference Range Interpretation Comments Protein, Total (test 6.8 See_Comment [Autom ated code = 2885-2) message] The system which generated this result transmit levi reference range : 6.0 - 8.3 gm/dL . The reference range was not u sed to interpret th is result as normal/abnormal . Albumin (test code = 2.6 g/dL 3.5-5.0 L 59623-6) Total Bilirubin (test 0.3 mg/dL 0.2-1.2 code = 1974-05) Bilirubin, Direct 0.2 mg/dL 0.1-0.5 (test code = 1967-10) Alkaline Phosphatase 90 U/L 40-150 (test code = 6768-6) AST (test code = 17 U/L 1919-8) ALT (test code = 11 U/L 1742-6) BRANDI (test code = BRANDI) [employer] Machine Operator ID - PIAYA L Lab Interpretation Abnormal (test code = 30792-6) [facility] [id number] 15:52:11 Test Item Value Reference Range Interpretation Comments Protein, Total (test 6.8 See_Comment [Autom ated code = 2885-2) message] The system which generated this result transmit levi reference range : 6.0 - 8.3 gm/dL . The reference range was not u sed to interpret th is result as normal/abnormal . Albumin (test code = 2.6 g/dL 3.5-5.0 L 88822-1) Total Bilirubin (test 0.3 mg/dL 0.2-1.2 code = 1974-) Bilirubin, Direct 0.2 mg/dL 0.1-0.5 (test code = 1967-) Alkaline Phosphatase 90 U/L 40-150 (test code = 6768-6) AST (test code = 17 U/L 5-34 1920-8) ALT (test code = 11 U/L 6-55 1742-6) BRANDI (test code = BRANDI) [employer] Machine Operator ID - PIAYA L Lab Interpretation Abnormal (test code = 54978-9) [facility] [id number] 15:52:11 Test Item Value Reference Range Interpretation Comments Protein, Total (test 6.8 See_Comment [Autom ated code = 2885-2) message] The system which generated this result transmit levi reference range : 6.0 - 8.3 gm/dL . The reference range was not u sed to interpret th is result as normal/abnormal . Albumin (test code = 2.6 g/dL 3.5-5.0 L 14732-4) Total Bilirubin (test 0.3 mg/dL 0.2-1.2 code = 1974-) Bilirubin, Direct 0.2 mg/dL 0.1-0.5 (test code = 1967-) Alkaline Phosphatase 90 U/L 40-150 (test code = 6768-6) AST (test code = 17 U/L 5-34 1920-8) ALT (test code = 11 U/L 6-55 1742-6) BRANDI (test code = BRANDI) [employer] Products Machine Operator ID - BURKEAYAD L Lab Interpretation Abnormal (test code = 48933-1) [facility] [id number] 15:52:11 Test Item Value Reference Range Interpretation Comments Protein, Total (test 6.8 See_Comment [Autom ated code = 2885-2) message] The system which generated this result transmit levi reference range : 6.0 - 8.3 gm/dL . The reference range was not u sed to interpret th is result as normal/abnormal . Albumin (test code = 2.6 g/dL 3.5-5.0 L 77562-4) Total Bilirubin (test 0.3 mg/dL 0.2-1.2 code = 1974-) Bilirubin, Direct 0.2 mg/dL 0.1-0.5 (test code = 1967-) Alkaline Phosphatase 90 U/L 40-150 (test code = 6768-6) AST (test code = 17 U/L 5-34 1920-8) ALT (test code = 11 U/L 6-55 1742-6) BRANDI (test code = BRANDI) [employer] Products Machine Operator ID - PIAYA L Lab Interpretation Abnormal (test code = 27819-7) [facility] [id number] 15:52:11 Test Item Value Reference Range Interpretation Comments Protein, Total (test 6.8 See_Comment [Autom ated code = 2885-2) message] The system which generated this result transmit levi reference range : 6.0 - 8.3 gm/dL . The reference range was not u sed to interpret th is result as normal/abnormal . Albumin (test code = 2.6 g/dL 3.5-5.0 L 38821-8) Total Bilirubin (test 0.3 mg/dL 0.2-1.2 code = 1975-2) Bilirubin, Direct 0.2 mg/dL 0.1-0.5 (test code = 1968-7) Alkaline Phosphatase 90 U/L 40-150 (test code = 6768-6) AST (test code = 17 U/L 5-34 1920-8) ALT (test code = 11 U/L 6-55 1742-6) BRANDI (test code = BRANDI) [employer] Products Machine Operator ID - LIANA L Lab Interpretation Abnormal (test code = 92358-7) [facility] [id number] 15:52:11 Test Item Value Reference Range Interpretation [...] (test code = 11 U/L 6-55 347) [employer] Products Machine Operator ID - LIANA LHeparin [id number] 12:21:31 Test Item Value Reference Range Interpretation Comments Heparin Ab (test code Negative Negative = 3267-2) Heparin Antibody 0.247 <0.400 Optical Density (test code = 2659) 4T Total Score (test 4 code = 2661) BRANDI (test code = BRANDI) Probability of HIT based on scoring system: 6-8 = High probability; 4-5 = intermediate probability; 0-3 = low probability [facility] [id number] 12:21:31 Test Item Value Reference Range Interpretation Comments Heparin Ab (test code Negative Negative = 3267-2) Heparin Antibody 0.247 <0.400 Optical Density (test code = 2659) 4T Total Score (test 4 code = 2661) BRANDI (test code = BRANDI) Probability of HIT based on scoring system: 6-8 = High probability; 4-5 = intermediate probability; 0-3 = low probability [facility] [id number] 12:21:31 Test Item Value Reference Range Interpretation Comments Heparin Ab (test code Negative Negative = 3267-2) Heparin Antibody 0.247 <0.400 Optical Density (test code = 2659) 4T Total Score (test 4 code = 2661) BRANDI (test code = BRANDI) Probability of HIT based on scoring system: 6-8 = High probability; 4-5 = intermediate probability; 0-3 = low probability [facility] [id number] 12:21:31 Test Item Value Reference Range Interpretation Comments Heparin Ab (test code Negative Negative = 3267-2) Heparin Antibody 0.247 <0.400 Optical Density (test code = 2659) 4T Total Score (test 4 code = 2661) BRANDI (test code = BRANDI) Probability of HIT based on scoring system: 6-8 = High probability; 4-5 = intermediate probability; 0-3 = low probability [facility] [id number] 12:21:31 Test Item Value Reference Range Interpretation Comments Heparin Ab (test code Negative Negative = 3267-2) Heparin Antibody 0.247 <0.400 Optical Density (test code = 2659) 4T Total Score (test 4 code = 2661) BRANDI (test code = BRANDI) Probability of HIT based on scoring system: 6-8 = High probability; 4-5 = intermediate probability; 0-3 = low probability [facility] [id number] 12:21:31 Test Item Value Reference Range Interpretation Comments Heparin Ab (test code Negative Negative = 3267-2) Heparin Antibody 0.247 <0.400 Optical Density (test code = 2659) 4T Total Score (test 4 code = 2661) BRANDI (test code = BRANDI) Probability of HIT based on scoring system: 6-8 = High probability; 4-5 = intermediate probability; 0-3 = low probability [facility] [id number] 12:21:31 Test Item Value Reference Range Interpretation Comments Heparin Ab (test code Negative Negative = 3267-2) Heparin Antibody 0.247 <0.400 Optical Density (test code = 2659) 4T Total Score (test 4 code = 2661) BRANDI (test code = BRANDI) Probability of HIT based on scoring system: 6-8 = High probability; 4-5 = intermediate probability; 0-3 = low probability [facility] [id number] 12:21:31 Test Item Value Reference Range Interpretation Comments Heparin Ab (test code Negative Negative = 3267-2) Heparin Antibody 0.247 <0.400 Optical Density (test code = 2659) 4T Total Score (test 4 code = 2661) BRANDI (test code = BRANDI) Probability of HIT based on scoring system: 6-8 = High probability; 4-5 = intermediate probability; 0-3 = low probability [facility] [id number] 12:21:31 Test Item Value Reference Range Interpretation Comments Heparin Ab (test code Negative Negative = 3267-2) Heparin Antibody 0.247 <0.400 Optical Density (test code = 2659) 4T Total Score (test 4 code = 2661) BRANDI (test code = BRANDI) Probability of HIT based on scoring system: 6-8 = High probability; 4-5 = intermediate probability; 0-3 = low probability [facility] [id number] 12:21:31 Test Item Value Reference Range Interpretation Comments Heparin Ab (test code Negative Negative = 3267-2) Heparin Antibody 0.247 <0.400 Optical Density (test code = 2659) 4T Total Score (test 4 code = 2661) BRANDI (test code = BRANDI) Probability of HIT based on scoring system: 6-8 = High probability; 4-5 = intermediate probability; 0-3 = low probability [facility] [id number] 12:21:31 Test Item Value Reference Range Interpretation Comments Heparin Ab (test code Negative Negative = 3267-2) Heparin Antibody 0.247 <0.400 Optical Density (test code = 2659) 4T Total Score (test 4 code = 2661) BRANDI (test code = BRANDI) Probability of HIT based on scoring system: 6-8 = High probability; 4-5 = intermediate probability; 0-3 = low probability [facility] [id number] 12:21:31 Test Item Value Reference Range Interpretation Comments Heparin Ab (test code Negative Negative = 3267-2) Heparin Antibody 0.247 <0.400 Optical Density (test code = 2659) 4T Total Score (test 4 code = 2661) BRANDI (test code = BRANDI) Probability of HIT based on scoring system: 6-8 = High probability; 4-5 = intermediate probability; 0-3 = low probability [facility] [id number] 12:21:31 Test Item Value Reference Range Interpretation Comments Heparin Ab (test code Negative Negative = 3267-2) Heparin Antibody 0.247 <0.400 Optical Density (test code = 2659) 4T Total Score (test 4 code = 2661) BRANDI (test code = BRANDI) Probability of HIT based on scoring system: 6-8 = High probability; 4-5 = intermediate probability; 0-3 = low probability [facility] erigbzqh6039-56-22 12:21:31 Test Item Value Reference Range Interpretation Comments Heparin Ab (test code Negative Negative = 3267-2) Heparin Antibody 0.247 <0.400 Optical Density (test code = 2659) 4T Total Score (test 4 code = 2661) BRANDI (test code = BRANDI) Probability of HIT based on scoring system: 6-8 = High probability; 4-5 = intermediate probability; 0-3 = low probability [facility] [id number] 12:21:31 Test Item Value Reference Range Interpretation Comments Heparin Ab (test code Negative Negative = 3267-2) Heparin Antibody 0.247 <0.400 Optical Density (test code = 2659) 4T Total Score (test 4 code = 2661) BRANDI (test code = BRANDI) Probability of HIT based on scoring system: 6-8 = High probability; 4-5 = intermediate probability; 0-3 = low probability [facility] [id number] 12:21:31 Test Item Value Reference Range Interpretation Comments Heparin Ab (test code Negative Negative = 3267-2) Heparin Antibody 0.247 <0.400 Optical Density (test code = 2659) 4T Total Score (test 4 code = 2661) BRANDI (test code = BRANDI) Probability of HIT based on scoring system: 6-8 = High probability; 4-5 = intermediate probability; 0-3 = low probability [facility] [id number] 12:21:31 Test Item Value Reference Range Interpretation Comments HEPARIN ANTIBODY (BEAKER) (test code Negative Negative = 646) HEPARIN ANTIBODY OD (BEAKER) (test 0.247 <0.400 code = 2659) 4T TOTAL SCORE (BEAKER) (test code = 4 2661) Probability of HIT based on scoring system: 6-8 = High probability; 4-5 = intermediate probability; 0-3 = [facility], [id number] 08:07:00 Test Item Value Reference Range Interpretation Comments ABO Grouping (test code = 2588) O Rh Factor (test code = 2589) [facility], [id number] 08:07:00 Test Item Value Reference Range Interpretation Comments ABO Grouping (test code = 2588) O Rh Factor (test code = 2589) [facility], [id number] 08:07:00 Test Item Value Reference Range Interpretation Comments ABO Grouping (test code = 2588) O Rh Factor (test code = 2589) [facility], [id number] 08:07:00 Test Item Value Reference Range Interpretation Comments ABO Grouping (test code = 2588) O Rh Factor (test code = 2589) [facility], [id number] 08:07:00 Test Item Value Reference Range Interpretation Comments ABO Grouping (test code = 2588) O Rh Factor (test code = 2589) [facility], [id number] 08:07:00 Test Item Value Reference Range Interpretation Comments ABO Grouping (test code = 2588) O Rh Factor (test code = 2589) [facility], [id number] 08:07:00 Test Item Value Reference Range Interpretation Comments ABO Grouping (test code = 2588) O Rh Factor (test code = 2589) [facility], [id number] 08:07:00 Test Item Value Reference Range Interpretation Comments ABO Grouping (test code = 2588) O Rh Factor (test code = 2589) [facility], [id number] 08:07:00 Test Item Value Reference Range Interpretation Comments ABO Grouping (test code = 2588) O Rh Factor (test code = 2589) [facility], [id number] 08:07:00 Test Item Value Reference Range Interpretation Comments ABO Grouping (test code = 2588) O Rh Factor (test code = 2589) [facility], [id number] 08:07:00 Test Item Value Reference Range Interpretation Comments ABO Grouping (test code = 2588) O Rh Factor (test code = 2589) [facility], [id number] 08:07:00 Test Item Value Reference Range Interpretation Comments ABO Grouping (test code = 2588) O Rh Factor (test code = 2589) [facility], [id number] 08:07:00 Test Item Value Reference Range Interpretation Comments ABO Grouping (test code = 2588) O Rh Factor (test code = 2589) [facility], [id number] 08:07:00 Test Item Value Reference Range Interpretation Comments ABO Grouping (test code = 2588) O Rh Factor (test code = 2589) [facility], [id number] 08:07:00 Test Item Value Reference Range Interpretation Comments ABO Grouping (test code = 2588) O Rh Factor (test code = 2589) [facility], [id number] 08:07:00 Test Item Value Reference Range Interpretation Comments ABO Grouping (test code = 2588) O Rh Factor (test code = 2589) [id number] 05:19:52 Test Item Value Reference Range Interpretation [...] S NOT APPLICABLE FOR DIALYSIS PATIEN TS. [employer] Machine Operator ID - LIANA [id number] 05:09:04 Test Item Value Reference Range Interpretation Comments PHOSPHORUS (BEAKER) (test code = 4.1 mg/dL 2.3-4.7 604) [employer] Machine Operator ID - LIANA [id number] 05:09:03 Test Item Value Reference Range Interpretation Comments MAGNESIUM (BEAKER) (test code = 2.0 mg/dL 1.6-2.6 627) [employer] Machine Operator ID - LIANA LPT/[id number] 04:53:34 Test Item Value Reference Interpretation Comments Range Protime (test code = 13.7 See_Comment [Autom ated 2222-2) message] The system which generated this result transmitted reference range : 11.9 - 14.2 seconds. The reference range was not used to interpret this result as normal/abnormal . INR (test code = 1.07 See_Comment [Automated 0611-6) message] The system which generated this result transmitted reference range : <=5.90. The reference range was not used to interpret this result as normal/abnormal . PTT (test code = 32.5 See_Comment [Automated 57578-5) message] The system which generated this result [...] valves. Lab Interpretation Normal (test code = 02753-2) [facility]AP1892[facility]97-51 04:53:34 Test Item Value Reference Interpretation Comments [...] PTT (test code = 32.5 See_Comment [Automated 05822-8) message] The system which generated this result [...] valves. Lab Interpretation Normal (test code = 35522-3) [facility][id number] 04:53:34 Test Item Value Reference Interpretation Comments [...] PTT (test code = 32.5 See_Comment [Automated 89874-4) message] The system which generated this result [...] valves. Lab Interpretation Normal (test code = 82858-8) [facility]nEMD6583-78-59 04:53:34 Test Item Value Reference Interpretation Comments [...] PTT (test code = 32.5 See_Comment [Automated 55024-3) message] The system which generated this result [...] valves. Lab Interpretation Normal (test code = 51793-0) [facility][id number] 04:53:34 Test Item Value Reference Interpretation Comments [...] PTT (test code = 32.5 See_Comment [Automated 99964-8) message] The system which generated this result [...] valves. Lab Interpretation Normal (test code = 15783-8) [facility]oKZY5714-46-12 04:53:34 Test Item Value Reference Interpretation Comments [...] PTT (test code = 32.5 See_Comment [Automated 01958-1) message] The system which generated this result [...] valves. Lab Interpretation Normal (test code = 68824-2) [facility]yKNV8659-15-77 04:53:34 Test Item Value Reference Interpretation Comments [...] PTT (test code = 32.5 See_Comment [Automated 09058-3) message] The system which generated this result [...] valves. Lab Interpretation Normal (test code = 33147-4) [facility][id number] 04:53:34 Test Item Value Reference Interpretation Comments [...] PTT (test code = 32.5 See_Comment [Automated 73474-0) message] The system which generated this result [...] valves. Lab Interpretation Normal (test code = 21344-3) [facility][id number] 04:53:34 Test Item Value Reference Interpretation Comments [...] PTT (test code = 32.5 See_Comment [Automated 01991-8) message] The system which generated this result [...] valves. Lab Interpretation Normal (test code = 48139-3) [facility]iHNM1171-01-99 04:53:34 Test Item Value Reference Interpretation Comments [...] PTT (test code = 32.5 See_Comment [Automated 89199-3) message] The system which generated this result [...] valves. Lab Interpretation Normal (test code = 99633-5) [facility]eGPA7343-15-30 04:53:34 Test Item Value Reference Interpretation Comments [...] PTT (test code = 32.5 See_Comment [Automated 20440-4) message] The system which generated this result [...] valves. Lab Interpretation Normal (test code = 97609-9) [facility]rTFT3643-36-11 04:53:34 Test Item Value Reference Interpretation Comments [...] PTT (test code = 32.5 See_Comment [Automated 47603-2) message] The system which generated this result [...] valves. Lab Interpretation Normal (test code = 14087-8) [facility]pYDV6330-08-51 04:53:34 Test Item Value Reference Interpretation Comments [...] PTT (test code = 32.5 See_Comment [Automated 83290-9) message] The system which generated this result [...] valves. Lab Interpretation Normal (test code = 41878-5) [facility]aYKY5587-79-29 04:53:34 Test Item Value Reference Interpretation Comments [...] PTT (test code = 32.5 See_Comment [Automated 17501-2) message] The system which generated this result [...] valves. Lab Interpretation Normal (test code = 85680-8) [facility]tWPS6310-80-92 04:53:34 Test Item Value Reference Interpretation Comments [...] PTT (test code = 32.5 See_Comment [Automated 43913-3) message] The system which generated this result [...] valves. Lab Interpretation Normal (test code = 25602-8) [facility]kKUE6215-24-70 04:53:34 Test Item Value Reference Interpretation Comments [...] PTT (test code = 32.5 See_Comment [Automated 49038-1) message] The system which generated this result [...] valves. Lab Interpretation Normal (test code = 53940-8) [facility]XYKS1277-93-76 04:53:34 Test Item Value Reference Range Interpretation [...] mechanical heart valves.CBC W/PLT COUNT & AUTO [id number] 04:46:52 Test Item Value Reference Range Interpretation [...] PERCENT (BEAKER) (test code = 2801) POCT-GLUCOSE [id number] 11:21:11 Test Item Value Reference Range Interpretation Comments POC-GLUCOSE METER 204 mg/dL 70-110 H : TESTED A T [facility] 6720 (BEAKER) (test code = YUDY [place], 1538) 29923: [employer] Machine Operator/Techni kelle ID = [id number] for Meeta Mcfarlane POCT-GLUCOSE [id number] 07:42:50 Test Item Value Reference Range Interpretation Comments POC-GLUCOSE METER 226 mg/dL 70-110 H : TESTED A T [facility] 6720 (BEAKER) (test code = YUDY [place], 1538) 51125: [employer] Machine Operator/Techni kelle ID = [id number] for Meeta Mcfarlane BASIC METABOLIC [id number] 05:13:30 Test Item Value Reference Range Interpretation [...] S NOT APPLICABLE FOR DIALYSIS PATIEN TS. [employer] Machine Operator ID - LIANA [id number] 05:11:53 Test Item Value Reference Range Interpretation Comments PHOSPHORUS (BEAKER) (test code = 3.3 mg/dL 2.3-4.7 604) [employer] Machine Operator ID - LIANA [id number] 05:11:52 Test Item Value Reference Range Interpretation Comments MAGNESIUM (BEAKER) (test code = 2.0 mg/dL 1.6-2.6 627) [employer] Machine Operator ID - LIANA LCBC W/PLT COUNT & AUTO [id number] 04:23:17 Test Item Value Reference Range Interpretation [...] PERCENT (BEAKER) (test code = 2801) POCT-GLUCOSE [id number] 17:21:48 Test Item Value Reference Range Interpretation Comments POC-GLUCOSE METER 209 mg/dL 70-110 H : TESTED A T [facility] 6720 (BEAKER) (test code = YUDY [place], 1538) 68986: [employer] Machine Operator/Techni kelle ID = [id number] for PADMINI ALMANZAR POCT-GLUCOSE [id number] 12:56:45 Test Item Value Reference Range Interpretation Comments POC-GLUCOSE METER 81 mg/dL 70-110 : TESTED A T [facility] 67[address] (BEAKER) (test code = YUDY [place] [facility], 1538) 42959: [employer] Machine Operator/Techni kelle ID = [id number] for PADMINI GRAY Dublhezv8076-62-67 09:21:04 Test Item Value Reference Range Interpretation Comments Ferritin (test code = 1418.54 ng/mL 5.00-275.00 H 2276-4) BRANDI (test code = BRANDI) [employer] Machine Operator ID - HIEN M Lab Interpretation (test Abnormal code = 32119-4) [facility] 09:21:04 Test Item Value Reference Range Interpretation Comments Ferritin (test code = 1418.54 ng/mL 5.00-275.00 H 2276-4) BRANDI (test code = BRANDI) [employer] Machine Operator ID - HIEN M Lab Interpretation (test Abnormal code = 37126-5) [facility] 09:21:04 Test Item Value Reference Range Interpretation Comments Ferritin (test code = 1418.54 ng/mL 5.00-275.00 H 2276-4) BRANDI (test code = BRANDI) [employer] Machine Operator ID - HIEN M Lab Interpretation (test Abnormal code = 33664-7) [facility] 09:21:04 Test Item Value Reference Range Interpretation Comments Ferritin (test code = 1418.54 ng/mL 5.00-275.00 H 2276-4) BRANDI (test code = BRANDI) [employer] Machine Operator ID - HIEN M Lab Interpretation (test Abnormal code = 59797-3) [facility] 09:21:04 Test Item Value Reference Range Interpretation Comments Ferritin (test code = 1418.54 ng/mL 5.00-275.00 H 2276-4) BRANDI (test code = BRANDI) [employer] Machine Operator ID - HIEN M Lab Interpretation (test Abnormal code = 94964-1) [facility] 09:21:04 Test Item Value Reference Range Interpretation Comments Ferritin (test code = 1418.54 ng/mL 5.00-275.00 H 2276-4) BRANDI (test code = BRANDI) [employer] Machine Operator ID - HIEN M Lab Interpretation (test Abnormal code = 32186-5) [facility]2022-03-12 09:21:04 Test Item Value Reference Range Interpretation Comments Ferritin (test code = 1418.54 ng/mL 5.00-275.00 H 2276-4) BRANDI (test code = BRANDI) [employer] Machine Operator ID - HIEN M Lab Interpretation (test Abnormal code = 40503-0) [facility]2022-03-12 09:21:04 Test Item Value Reference Range Interpretation Comments Ferritin (test code = 1418.54 ng/mL 5.00-275.00 H 2276-4) BRANDI (test code = BRANDI) [employer] Machine Operator ID - HIEN M Lab Interpretation (test Abnormal code = 83650-9) [facility]2022-03-12 09:21:04 Test Item Value Reference Range Interpretation Comments Ferritin (test code = 1418.54 ng/mL 5.00-275.00 H 2276-4) BRANDI (test code = BRANDI) [employer] Machine Operator ID - HEIN M Lab Interpretation (test Abnormal code = 30473-7) [facility]2022-03-12 09:21:04 Test Item Value Reference Range Interpretation Comments Ferritin (test code = 1418.54 ng/mL 5.00-275.00 H 2276-4) BRANDI (test code = BRANDI) [employer] Machine Operator ID - HIEN M Lab Interpretation (test Abnormal code = 05168-4) [facility] 09:21:04 Test Item Value Reference Range Interpretation Comments Ferritin (test code = 1418.54 ng/mL 5.00-275.00 H 2276-4) BRANDI (test code = BRANDI) [employer] Machine Operator ID - HIEN M Lab Interpretation (test Abnormal code = 71357-9) [facility]2022-03-12 09:21:04 Test Item Value Reference Range Interpretation Comments Ferritin (test code = 1418.54 ng/mL 5.00-275.00 H 2276-4) BRANDI (test code = BRANDI) [employer] Machine Operator ID - HIEN M Lab Interpretation (test Abnormal code = 67483-8) [facility] 09:21:04 Test Item Value Reference Range Interpretation Comments Ferritin (test code = 1418.54 ng/mL 5.00-275.00 H 2276-4) BRANDI (test code = BRANDI) [employer] Machine Operator ID - HIEN M Lab Interpretation (test Abnormal code = 92561-4) [facility] 09:21:04 Test Item Value Reference Range Interpretation Comments Ferritin (test code = 1418.54 ng/mL 5.00-275.00 H 2276-4) BRANDI (test code = BRANDI) [employer] Machine Operator ID - HIEN M Lab Interpretation (test Abnormal code = 44225-7) [facility]2022-03-12 09:21:04 Test Item Value Reference Range Interpretation Comments Ferritin (test code = 1418.54 ng/mL 5.00-275.00 H 2276-4) BRANDI (test code = BRANDI) [employer] Machine Operator ID - HIEN M Lab Interpretation (test Abnormal code = 97592-6) [facility] 09:21:04 Test Item Value Reference Range Interpretation Comments Ferritin (test code = 1418.54 ng/mL 5.00-275.00 H 2276-4) BRANDI (test code = BRANDI) [employer] Machine Operator ID - HIEN M Lab Interpretation (test Abnormal code = 91731-6) [facility] 09:21:04 Test Item Value Reference Range Interpretation Comments FERRITIN (BEAKER) (test code = 1418.54 ng/mL 5.00-275.00 H 361) [employer] Machine Operator ID - HIEN [place], TIBC, % sat. (without ferritin)2021-06-13 09:01:39 Test Item Value Reference Range Interpretation Comments Iron (test code = 2498-4) 75.0 ug/dL 40.0-160.0 TIBC (test code = 2500-7) 145 ug/dL 250-450 L Iron % Saturation (test 52 % 20-55 code = 2502-3) BRANDI (test code = BRANDI) [employer] Machine Operator ID - HIEN M Lab Interpretation (test Abnormal code = 04574-3) [facility], TIBC, % sat. (without ferritin)2021-06-13 09:01:39 Test Item Value Reference Range Interpretation Comments Iron (test code = 2498-4) 75.0 ug/dL 40.0-160.0 TIBC (test code = 2500-7) 145 ug/dL 250-450 L Iron % Saturation (test 52 % 20-55 code = 2502-3) BRANDI (test code = BRANDI) [employer] Machine Operator ID - HIEN M Lab Interpretation (test Abnormal code = 01857-6) [facility], TIBC, % sat. (without ferritin)2021-06-13 09:01:39 Test Item Value Reference Range Interpretation Comments Iron (test code = 2498-4) 75.0 ug/dL 40.0-160.0 TIBC (test code = 2500-7) 145 ug/dL 250-450 L Iron % Saturation (test 52 % 20-55 code = 2502-3) BRANDI (test code = BRANDI) [employer] Machine Operator ID - HIEN M Lab Interpretation (test Abnormal code = 06558-5) [facility], TIBC, % sat. (without ferritin)2021-06-13 09:01:39 Test Item Value Reference Range Interpretation Comments Iron (test code = 2498-4) 75.0 ug/dL 40.0-160.0 TIBC (test code = 2500-7) 145 ug/dL 250-450 L Iron % Saturation (test 52 % 20-55 code = 2502-3) BRANDI (test code = BRANDI) [employer] Machine Operator ID - HIEN M Lab Interpretation (test Abnormal code = 02163-5) [facility], TIBC, % sat. (without ferritin)2021-06-13 09:01:39 Test Item Value Reference Range Interpretation Comments Iron (test code = 2498-4) 75.0 ug/dL 40.0-160.0 TIBC (test code = 2500-7) 145 ug/dL 250-450 L Iron % Saturation (test 52 % 20-55 code = 2502-3) BRANDI (test code = BRANDI) [employer] Machine Operator ID - HIEN M Lab Interpretation (test Abnormal code = 75605-1) [facility], TIBC, % sat. (without ferritin)2021-06-13 09:01:39 Test Item Value Reference Range Interpretation Comments Iron (test code = 2498-4) 75.0 ug/dL 40.0-160.0 TIBC (test code = 2500-7) 145 ug/dL 250-450 L Iron % Saturation (test 52 % 20-55 code = 2502-3) BRANDI (test code = BRANDI) [employer] Machine Operator ID - HIEN M Lab Interpretation (test Abnormal code = 30053-6) [facility], TIBC, % sat. (without ferritin)2021-06-13 09:01:39 Test Item Value Reference Range Interpretation Comments Iron (test code = 2498-4) 75.0 ug/dL 40.0-160.0 TIBC (test code = 2500-7) 145 ug/dL 250-450 L Iron % Saturation (test 52 % 20-55 code = 2502-3) BRANDI (test code = BRANDI) [employer] Machine Operator ID - HIEN M Lab Interpretation (test Abnormal code = 71614-3) [facility], TIBC, % sat. (without ferritin)2021-06-13 09:01:39 Test Item Value Reference Range Interpretation Comments Iron (test code = 2498-4) 75.0 ug/dL 40.0-160.0 TIBC (test code = 2500-7) 145 ug/dL 250-450 L Iron % Saturation (test 52 % 20-55 code = 2502-3) BRANDI (test code = BRANDI) [employer] Machine Operator ID - HIEN M Lab Interpretation (test Abnormal code = 26669-2) [facility], TIBC, % sat. (without ferritin)2021-06-13 09:01:39 Test Item Value Reference Range Interpretation Comments Iron (test code = 2498-4) 75.0 ug/dL 40.0-160.0 TIBC (test code = 2500-7) 145 ug/dL 250-450 L Iron % Saturation (test 52 % 20-55 code = 2502-3) BRANDI (test code = BRANDI) [employer] Machine Operator ID - HIEN M Lab Interpretation (test Abnormal code = 38658-8) [facility], TIBC, % sat. (without ferritin)2021-06-13 09:01:39 Test Item Value Reference Range Interpretation Comments Iron (test code = 2498-4) 75.0 ug/dL 40.0-160.0 TIBC (test code = 2500-7) 145 ug/dL 250-450 L Iron % Saturation (test 52 % 20-55 code = 2502-3) BRANDI (test code = BRANDI) Paper [employer] Machine Operator ID - HIEN M Lab Interpretation (test Abnormal code = 78152-3) [facility], TIBC, % sat. (without ferritin)2021-06-13 09:01:39 Test Item Value Reference Range Interpretation Comments Iron (test code = 2498-4) 75.0 ug/dL 40.0-160.0 TIBC (test code = 2500-7) 145 ug/dL 250-450 L Iron % Saturation (test 52 % 20-55 code = 2502-3) BRANDI (test code = BRANDI) Paper Products Machine Operator ID - HIEN M Lab Interpretation (test Abnormal code = 39362-6) [facility], TIBC, % sat. (without ferritin)2021-06-13 09:01:39 Test Item Value Reference Range Interpretation Comments Iron (test code = 2498-4) 75.0 ug/dL 40.0-160.0 TIBC (test code = 2500-7) 145 ug/dL 250-450 L Iron % Saturation (test 52 % 20-55 code = 2502-3) BRANDI (test code = BRANDI) Paper Products Machine Operator ID - HIEN M Lab Interpretation (test Abnormal code = 57052-7) [facility], TIBC, % sat. (without ferritin)2021-06-13 09:01:39 Test Item Value Reference Range Interpretation Comments Iron (test code = 2498-4) 75.0 ug/dL 40.0-160.0 TIBC (test code = 2500-7) 145 ug/dL 250-450 L Iron % Saturation (test 52 % 20-55 code = 2502-3) BRANDI (test code = BRANDI) Paper Products Machine Operator ID - HIEN M Lab Interpretation (test Abnormal code = 40226-5) [facility], TIBC, % sat. (without ferritin)2021-06-13 09:01:39 Test Item Value Reference Range Interpretation Comments Iron (test code = 2498-4) 75.0 ug/dL 40.0-160.0 TIBC (test code = 2500-7) 145 ug/dL 250-450 L Iron % Saturation (test 52 % 20-55 code = 2502-3) BRANDI (test code = BRANDI) Paper Products Machine Operator ID - HIEN Hernandes Lab Interpretation (test Abnormal code = 20002-0) [facility], TIBC, % sat. (without ferritin)2021-06-13 09:01:39 Test Item Value Reference Range Interpretation Comments Iron (test code = 2498-4) 75.0 ug/dL 40.0-160.0 TIBC (test code = 2500-7) 145 ug/dL 250-450 L Iron % Saturation (test 52 % 20-55 code = 2502-3) BRANDI (test code = BRANDI) [employer] Products Machine Operator ID - HIEN Hernandes Lab Interpretation (test Abnormal code = 97941-8) [facility], TIBC, % sat. (without ferritin)2021-06-13 09:01:39 Test Item Value Reference Range Interpretation Comments Iron (test code = 2498-4) 75.0 ug/dL 40.0-160.0 TIBC (test code = 2500-7) 145 ug/dL 250-450 L Iron % Saturation (test 52 % 20-55 code = 2502-3) BRANDI (test code = BRANDI) [employer] Machine Operator ID - HIEN Hernandes Lab Interpretation (test Abnormal code = 42049-0) [facility], TIBC, % SAT. (WITHOUT FERRITIN)2021-06-13 09:01:39 Test Item Value Reference Range Interpretation Comments IRON (BEAKER) (test code = 547) 75.0 ug/dL 40.0-160.0 TOTAL IRON BINDING CAPACITY 145 ug/dL 250-450 L (BEAKER) (test code = 769) IRON % SATURATION (2) (BEAKER) 52 % 20-55 (test code = 2590) Paper Products Machine Operator NORAH STANFORD MPOCT-GLUCOSE [id number] 08:51:07 Test Item Value Reference Range Interpretation Comments POC-GLUCOSE METER 106 mg/dL 70-110 : TESTED A T [facility] 6720 (BEAKER) (test code = [place], 1538) 39817: Paper Products Machine Operator/Techni kelle ID = [id number] for NE WBURY, PADMINI BASIC METABOLIC [id number] 04:21:54 Test Item Value Reference Range Interpretation [...] S NOT APPLICABLE FOR DIALYSIS PATIEN TS. [employer] Machine Operator ID - HIEN [id number] 04:17:34 Test Item Value Reference Range Interpretation Comments MAGNESIUM (BEAKER) (test code = 2.0 mg/dL 1.6-2.6 627) [employer] Machine Operator ID - HIEN [id number] 04:17:34 Test Item Value Reference Range Interpretation Comments PHOSPHORUS (BEAKER) (test code = 3.1 mg/dL 2.3-4.7 604) [employer] Machine Operator ID - HIEN MCBC W/PLT COUNT & AUTO [id number] 03:49:10 Test Item Value Reference Range Interpretation [...] PERCENT (BEAKER) (test code = 2801) SARS-COV2/RT-PCR ([facility])2021-06-13 02:28:08 Test Item Value Reference Range Interpretation Comments SARS-COV2/RT-PCR (test code = Negative Negative 7347276) Negative result for this test determines that [...] of the Act.Testing was performed using t Bambisa SARS-CoV-2 assay.Fact Sheet for Healthcare Providers:https://www.Style on Screen.brown/ct/RT SARS-CoV-2 HCP Fact Sheet 51- 615046.pdfFact Sheet for Healthcare Patients:https://www.Style on Screen.brown/tc/RT SARS-CoV-2 Patient Fact Sheet EN 51-526499Y8.pdfPOCT-GLUCOSE [id number] 02:01:02 Test Item Value Reference Range Interpretation Comments POC-GLUCOSE METER 98 mg/dL 70-110 : TESTED A T [facility] 6720 ([place]) (test code = YUDY [place] [facility], 1538) 947[address]: Paper Products Machine Operator/Techni kelle ID = [id number] for SREEKANTH ROSS POCT-GLUCOSE [id number] 02:00:06 Test Item Value Reference Range Interpretation Comments POC-GLUCOSE METER 151 mg/dL 70-110 H : TESTED A T [facility] 6720 ([place]) (test code = YUDY [place] [facility], 1538) 97140: Paper Products Machine Operator/Techni kelle ID = [id number] for ALINE ROWE BLOOD [id number] 23:01:20 Test Item Value Reference Range Interpretation Comments CULTURE (BEAKER) (test No growth in 5 days code = 1095) BLOOD [id number] 23:01:19 Test Item Value Reference Range Interpretation Comments CULTURE (BEAKER) (test No growth in 5 days code = 1095) CT, BRAIN, WITHOUT [id number] 08:55:00Unlisted Reason for Exam - Click Yes and Enter Reason Below->No [facility] 1955 Sex: [...] MDReport Verified Date/Time: 06/12/2021 08:55:52 Reading Location: [facility] B1 C013V Neuro Reading Room POCT-GLUCOSE [id number] 07:42:49 Test Item Value Reference Range Interpretation Comments POC-GLUCOSE METER 113 mg/dL 70-110 H : TESTED A T [facility] 6720 (BEAKER) (test code = [facility] [employer] [facility], 1538) 18530: Paper Products Machine Operator/Techni kelle ID = [id number] for Sheryl Enciso POCT-GLUCOSE [id number] 07:42:05 Test Item Value Reference Range Interpretation Comments POC-GLUCOSE METER 131 mg/dL 70-110 H : TESTED A T [facility] 6720 (BEAKER) (test code = [facility] [employer] [facility], 1538) 85043: Paper Products Machine Operator/Techni kelle ID = [id number] for JI MONTAÑO POCT-GLUCOSE [id number] 07:32:16 Test Item Value Reference Range Interpretation Comments POC-GLUCOSE METER 127 mg/dL 70-110 H : TESTED A T [facility] 6720 (BEAKER) (test code = ZANK.[employer] [place] [address] [facility], 1538) 26032: Paper Products Machine Operator/Techni kelle ID = [id number] for GURINDER VILLA CT, CTANGIO [id number] 03:03:00Reason for exam:->Symptoms onset less than 6 hours and NIHSS 6 or greater [facility] : 1955 Sex: FFINAL REPORT CLINICAL [...] the film. IMPRESSION: No evidence of a sh[place] of [place] proximal branch vessel occlusion or [...] MDReport Verified Date/Time: 06/12/2021 03:03:56 CT, CAROTID, [id number] 03:03:00Reason for exam:- >Symptoms onset less than 6 hours and NIHSS 6 or greater [facility] : 1955 Sex: [...] the film. IMPRESSION: No evidence of a [place] proximal branch vessel occlusion or [...] Nikole Baron Verified Date/Time: 06/12/2021 03:03:56 PROTHROMBIN TIME/[id number] 01:46:16 Test Item Value Reference Range Interpretation Comments PROTIME (BEAKER) 15.0 seconds 11.9-14.2 H (test code = 759) INR (BEAKER) (test 1.20 See_Comment [Automat ed message] code = 370) The system Flipzu generated this result transmitted ref erence range: <=5.90. The reference range was not used to int erpret this result as normal/abnormal . RECOMMENDED COUMADIN/WARFARIN INR THERAPY RANGESSTANDARD DOSE: 2.0 - 3.0 Includes: PROPHYLAXIS for venous thrombosis, systemic embolization; TREATMENT for venous thrombosis and/or pulmonary embolus.HIGH RISK: Target INR is 2.5-3.5 for patients with mechanical heart valves.CBC W/PLT COUNT & AUTO [id number] 01:45:34 Test Item Value Reference Range Interpretation [...] (test code = 2801) CT, BRAIN, WITHOUT [id number] 01:38:00Unlisted Reason for Exam - Click Yes and Enter Reason Below->No [facility] : 1955 Sex: [...] pg/ml See_Comment H [Automa levi code = 09268-5) message] The system which generated this result transmitted reference range : <=17. The reference range was not used to interpret this result as normal/abnormal . BRANDI (test code = Paper Products Machine Operator ID - BRANDI) DBThe HARDWOOD FLOOR SANDER STAT High Sensitivity Troponin-I results should be used in conjunction with other diagnostic information such as ECG, clinical observations and information, and patient symptoms to aid in the diagnosis of MO. Lab Interpretation Abnormal (test code = 78302-6) [facility] 2021-06-12 01:35:31 Test Item Value Reference Range Interpretation Comments Troponin I HS (test 231 pg/ml See_Comment H [Automa levi code = 89916-0) message] The system which generated this result transmitted reference range : <=17. The reference range was not used to interpret this result as normal/abnormal . BRANDI (test code = Paper Products Machine Operator ID - BRANDI) DBThe HARDWOOD FLOOR SANDER STAT High Sensitivity Troponin-I results should be used in conjunction with other diagnostic information such as ECG, clinical observations and information, and patient symptoms to aid in the diagnosis of MO. Lab Interpretation Abnormal (test code = 16756-5) [facility] 2021-06-12 01:35:31 Test Item Value Reference Range Interpretation Comments Troponin I HS (test 231 pg/ml See_Comment H [Automa levi code = 64441-3) message] The system which generated this result transmitted reference range : <=17. The reference range was not used to interpret this result as normal/abnormal . BRANDI (test code = Paper Products Machine Operator ID - BRANDI) DBThe HARDWOOD FLOOR SANDER STAT High Sensitivity Troponin-I results should be used in conjunction with other diagnostic information such as ECG, clinical observations and information, and patient symptoms to aid in the diagnosis of MO. Lab Interpretation Abnormal (test code = 91634-1) [facility]Jin Only[facility] 2021-06-12 01:35:31 Test Item Value Reference Range Interpretation Comments Troponin I HS (test 231 pg/ml See_Comment H [Automa levi code = 19306-9) message] The system which generated this result transmitted reference range : <=17. The reference range was not used to interpret this result as normal/abnormal . BRANDI (test code = Paper Products Machine Operator ID - BRANDI) DBThe HARDWOOD FLOOR SANDER STAT High Sensitivity Troponin-I results should be used in conjunction with other diagnostic information such as ECG, clinical observations and information, and patient symptoms to aid in the diagnosis of MO. Lab Interpretation Abnormal (test code = 29638-1) [facility]in Only[facility] 2021-06-12 01:35:31 Test Item Value Reference Range Interpretation Comments Troponin I HS (test 231 pg/ml See_Comment H [Automa levi code = 86782-8) message] The system which generated this result transmitted reference range : <=17. The reference range was not used to interpret this result as normal/abnormal . BRANDI (test code = Paper Products Machine Operator ID - BRANDI) DBThe HARDWOOD FLOOR SANDER STAT High Sensitivity Troponin-I results should be used in conjunction with other diagnostic information such as ECG, clinical observations and information, and patient symptoms to aid in the diagnosis of MO. Lab Interpretation Abnormal (test code = 98599-3) [facility]Jin Only[facility] 2021-06-12 01:35:31 Test Item Value Reference Range Interpretation Comments Troponin I HS (test 231 pg/ml See_Comment H [Automa levi code = 16106-0) message] The system which generated this result transmitted reference range : <=17. The reference range was not used to interpret this result as normal/abnormal . BRANDI (test code = Paper Products Machine Operator ID - BRANDI) DBThe HARDWOOD FLOOR SANDER STAT High Sensitivity Troponin-I results should be used in conjunction with other diagnostic information such as ECG, clinical observations and information, and patient symptoms to aid in the diagnosis of MO. Lab Interpretation Abnormal (test code = 88221-7) [facility] 2021-06-12 01:35:31 Test Item Value Reference Range Interpretation Comments Troponin I HS (test 231 pg/ml See_Comment H [Automa levi code = 58300-6) message] The system which generated this result transmitted reference range : <=17. The reference range was not used to interpret this result as normal/abnormal . BRANDI (test code = Paper Products Machine Operator ID - BRANDI) DBThe HARDWOOD FLOOR SANDER STAT High Sensitivity Troponin-I results should be used in conjunction with other diagnostic information such as ECG, clinical observations and information, and patient symptoms to aid in the diagnosis of MO. Lab Interpretation Abnormal (test code = 67613-7) [facility]Jin Only) 2021-06-12 01:35:31 Test Item Value Reference Range Interpretation Comments Troponin I HS (test 231 pg/ml See_Comment H [Automa levi code = 19102-4) message] The system which generated this result transmitted reference range : <=17. The reference range was not used to interpret this result as normal/abnormal . BRANDI (test code = Paper Products Machine Operator ID - BRANDI) DBThe HARDWOOD FLOOR SANDER STAT High Sensitivity Troponin-I results should be used in conjunction with other diagnostic information such as ECG, clinical observations and information, and patient symptoms to aid in the diagnosis of MO. Lab Interpretation Abnormal (test code = 98094-7) [facility]in Only) 2021-06-12 01:35:31 Test Item Value Reference Range Interpretation Comments Troponin I HS (test 231 pg/ml See_Comment H [Automa levi code = 69359-4) message] The system which generated this result transmitted reference range : <=17. The reference range was not used to interpret this result as normal/abnormal . BRANDI (test code = Paper Products Machine Operator ID - BRANDI) DBThe HARDWOOD FLOOR SANDER STAT High Sensitivity Troponin-I results should be used in conjunction with other diagnostic information such as ECG, clinical observations and information, and patient symptoms to aid in the diagnosis of MO. Lab Interpretation Abnormal (test code = 22408-7) [facility] 2021-06-12 01:35:31 Test Item Value Reference Range Interpretation Comments Troponin I HS (test 231 pg/ml See_Comment H [Automa levi code = 03585-9) message] The system which generated this result transmitted reference range : <=17. The reference range was not used to interpret this result as normal/abnormal . BRANDI (test code = Paper Products Machine Operator ID - BRANDI) DBThe HARDWOOD FLOOR SANDER STAT High Sensitivity Troponin-I results should be used in conjunction with other diagnostic information such as ECG, clinical observations and information, and patient symptoms to aid in the diagnosis of MO. Lab Interpretation Abnormal (test code = 87611-0) [facility] 2021-06-12 01:35:31 Test Item Value Reference Range Interpretation Comments Troponin I HS (test 231 pg/ml See_Comment H [Automa levi code = 39008-9) message] The system which generated this result transmitted reference range : <=17. The reference range was not used to interpret this result as normal/abnormal . BRANDI (test code = Paper Products Machine Operator ID - BRANDI) DBThe HARDWOOD FLOOR SANDER STAT High Sensitivity Troponin-I results should be used in conjunction with other diagnostic information such as ECG, clinical observations and information, and patient symptoms to aid in the diagnosis of MO. Lab Interpretation Abnormal (test code = 18685-5) [facility] 2021-06-12 01:35:31 Test Item Value Reference Range Interpretation Comments Troponin I HS (test 231 pg/ml See_Comment H [Automa levi code = 27049-1) message] The system which generated this result transmitted reference range : <=17. The reference range was not used to interpret this result as normal/abnormal . BRANDI (test code = Paper Products Machine Operator ID - BRANDI) DBThe HARDWOOD FLOOR SANDER STAT High Sensitivity Troponin-I results should be used in conjunction with other diagnostic information such as ECG, clinical observations and information, and patient symptoms to aid in the diagnosis of MO. Lab Interpretation Abnormal (test code = 01611-3) [facility] 2021-06-12 01:35:31 Test Item Value Reference Range Interpretation Comments Troponin I HS (test 231 pg/ml See_Comment H [Automa levi code = 20315-3) message] The system which generated this result transmitted reference range : <=17. The reference range was not used to interpret this result as normal/abnormal . BRANDI (test code = Paper Products Machine Operator ID - BRANDI) DBThe HARDWOOD FLOOR SANDER STAT High Sensitivity Troponin-I results should be used in conjunction with other diagnostic information such as ECG, clinical observations and information, and patient symptoms to aid in the diagnosis of MO. Lab Interpretation Abnormal (test code = 40358-8) [facility] 2021-06-12 01:35:31 Test Item Value Reference Range Interpretation Comments Troponin I HS (test 231 pg/ml See_Comment H [Automa levi code = 60031-0) message] The system which generated this result transmitted reference range : <=17. The reference range was not used to interpret this result as normal/abnormal . BRANDI (test code = Paper Products Machine Operator ID - BRANDI) DBT HARDWOOD FLOOR SANDER STAT High Sensitivity Troponin-I results should be used in conjunction with other diagnostic information such as ECG, clinical observations and information, and patient symptoms to aid in the diagnosis of MO. Lab Interpretation Abnormal (test code = 44729-4) [facility] 2021-06-12 01:35:31 Test Item Value Reference Range Interpretation Comments Troponin I HS (test 231 pg/ml See_Comment H [Automa levi code = 21412-2) message] The system which generated this result transmitted reference range : <=17. The reference range was not used to interpret this result as normal/abnormal . BRANDI (test code = Paper Products Machine Operator ID - BRANDI) DBThe HARDWOOD FLOOR SANDER STAT High Sensitivity Troponin-I results should be used in conjunction with other diagnostic information such as ECG, clinical observations and information, and patient symptoms to aid in the diagnosis of MO. Lab Interpretation Abnormal (test code = 57743-3) [facility] 2021-06-12 01:35:31 Test Item Value Reference Range Interpretation Comments Troponin I HS (test 231 pg/ml See_Comment H [Automa levi code = 67915-3) message] The system which generated this result transmitted reference range : <=17. The reference range was not used to interpret this result as normal/abnormal . BRANDI (test code = Paper Products Machine Operator ID - BRANDI) DBThe HARDWOOD FLOOR SANDER STAT High Sensitivity Troponin-I results should be used in conjunction with other diagnostic information such as ECG, clinical observations and information, and patient symptoms to aid in the diagnosis of MO. Lab Interpretation Abnormal (test code = 78687-0) [facility] TROPONIN [id number] 01:35:31 Test Item Value Reference Range Interpretation Comments HIGH SENSITIVITY 231 pg/ml See_Comment H [Automated message] TROPONIN I (test code The sy stem which = 8807922) generated this result transmitted ref erence range: <=17. Th e reference range was not used to int erpret this result as normal/abnormal . Paper Products Machine Operator ID - DBThe HARDWOOD FLOOR SANDER STAT High Sensitivity Troponin-I results should be used in conjunctionwith other diagnostic information such as ECG, clinical observations and information, and patient symptoms to aid in the diagnosis of MO.BASIC METABOLIC [id number] 01:29:11 Test Item Value Reference Range Interpretation [...] S NOT APPLICABLE FOR DIALYSIS PATIEN TS. Paper Products Machine Operator ID - [id number] 01:28:34 Test Item Value Reference Range Interpretation Comments PHOSPHORUS (BEAKER) 4.6 mg/dL 2.3-4.7 Specimen slightly (test code = 604) hemolyzed Paper Products Machine Operator ID - [id number] 01:28:33 Test Item Value Reference Range Interpretation Comments MAGNESIUM (BEAKER) 2.2 mg/dL 1.6-2.6 Specimen slightly (test code = 627) hemolyzed Paper Products Machine Operator ID - DBLactic acid, [id number] 01:26:32 Test Item Value Reference Range Interpretation Comments Lactate, Venous (test code = 0.87 mmol/L 0.50-2.20 2872) BRANDI (test code = BRANDI) Paper Products Machine Operator ID - DB Lab Interpretation (test Normal code = 14529-8) [facility] [id number] 01:26:32 Test Item Value Reference Range Interpretation Comments Lactate, Venous (test code = 0.87 mmol/L 0.50-2.20 2872) BRANDI (test code = BRANDI) Paper Products Machine Operator ID - DB Lab Interpretation (test Normal code = 92210-2) [facility] [id number] 01:26:32 Test Item Value Reference Range Interpretation Comments Lactate, Venous (test code = 0.87 mmol/L 0.50-2.20 2872) BRANDI (test code = BRANDI) Paper Products Machine Operator ID - DB Lab Interpretation (test Normal code = 60147-1) [facility] [id number] 01:26:32 Test Item Value Reference Range Interpretation Comments Lactate, Venous (test code = 0.87 mmol/L 0.50-2.20 2872) BRANDI (test code = BRANDI) Paper Products Machine Operator ID - DB Lab Interpretation (test Normal code = 83988-5) [facility] [id number] 01:26:32 Test Item Value Reference Range Interpretation Comments Lactate, Venous (test code = 0.87 mmol/L 0.50-2.20 2872) BRANDI (test code = BRANDI) Paper Products Machine Operator ID - DB Lab Interpretation (test Normal code = 50177-7) [facility], [id number] 01:26:32 Test Item Value Reference Range Interpretation Comments Lactate, Venous (test code = 0.87 mmol/L 0.50-2.20 2872) BRANDI (test code = BRANDI) Paper Products Machine Operator ID - DB Lab Interpretation (test Normal code = 91305-6) [facility] [id number] 01:26:32 Test Item Value Reference Range Interpretation Comments Lactate, Venous (test code = 0.87 mmol/L 0.50-2.20 2872) BRANDI (test code = BRANDI) Paper Products Machine Operator ID - DB Lab Interpretation (test Normal code = 94947-5) [facility] [id number] 01:26:32 Test Item Value Reference Range Interpretation Comments Lactate, Venous (test code = 0.87 mmol/L 0.50-2.20 2872) BRANDI (test code = BRANDI) [employer] Machine Operator ID - DB Lab Interpretation (test Normal code = 40271-1) [facility] nawfzr1060-09-14 01:26:32 Test Item Value Reference Range Interpretation Comments Lactate, Venous (test code = 0.87 mmol/L 0.50-2.20 2872) BRANDI (test code = BRANDI) [employer] Machine Operator ID - DB Lab Interpretation (test Normal code = 51736-3) [facility] [id number] 01:26:32 Test Item Value Reference Range Interpretation Comments Lactate, Venous (test code = 0.87 mmol/L 0.50-2.20 2872) BRANDI (test code = BRANDI) [employer] Machine Operator ID - DB Lab Interpretation (test Normal code = 00056-6) [facility] gswatm4867-13-85 01:26:32 Test Item Value Reference Range Interpretation Comments Lactate, Venous (test code = 0.87 mmol/L 0.50-2.20 2872) BRANDI (test code = BRANDI) [employer] Machine Operator ID - DB Lab Interpretation (test Normal code = 06485-0) [facility] oviida1725-54-36 01:26:32 Test Item Value Reference Range Interpretation Comments Lactate, Venous (test code = 0.87 mmol/L 0.50-2.20 2872) BRANDI (test code = BRANDI) [employer] Machine Operator ID - DB Lab Interpretation (test Normal code = 28014-2) [facility] zrv[facility]o1001[facility]37[facility]02 01:26:32 Test Item Value Reference Range Interpretation Comments Lactate, Venous (test code = 0.87 mmol/L 0.50-2.20 2872) BRANDI (test code = BRANDI) [employer] Machine Operator ID - DB Lab Interpretation (test Normal code = 88251-7) [facility] [id number] 01:26:32 Test Item Value Reference Range Interpretation Comments Lactate, Venous (test code = 0.87 mmol/L 0.50-2.20 2872) BRANDI (test code = BRANDI) [employer] Machine Operator ID - DB Lab Interpretation (test Normal code = 98444-9) [facility] preptg6385-85-16 01:26:32 Test Item Value Reference Range Interpretation Comments Lactate, Venous (test code = 0.87 mmol/L 0.50-2.20 2872) BRANDI (test code = BRANDI) [employer] Machine Operator ID - DB Lab Interpretation (test Normal code = 76822-9) [facility] upubhk7177-74-97 01:26:32 Test Item Value Reference Range Interpretation Comments Lactate, Venous (test code = 0.87 mmol/L 0.50-2.20 2872) BRANDI (test code = BRANDI) [employer] Machine Operator ID - DB Lab Interpretation (test Normal code = 70157-1) [facility], [id number] 01:26:32 Test Item Value Reference Range Interpretation Comments LACTATE BLOOD VENOUS (2) (BEAKER) 0.87 mmol/L 0.50-2.20 (test code = 2872) [employer] Machine Operator ID - DBPOCT-GLUCOSE [id number] 16:24:28 Test Item Value Reference Range Interpretation Comments POC-GLUCOSE METER 244 mg/dL 70-110 H : TESTED A T [facility] 6720 (BEAKER) (test code = [facility], 1538) 71341: Paper Products Machine Operator/Techni kelle ID = [id number] for Re yes, Maranda POCT-GLUCOSE [id number] 11:29:05 Test Item Value Reference Range Interpretation Comments POC-GLUCOSE METER 168 mg/dL 70-110 H : TESTED A T [facility] 6720 (BEAKER) (test code = [facility], 1538) 97854: Paper Products Machine Operator/Techni kelle ID = [id number] for Re yes, Maranda POCT-GLUCOSE [id number] 06:45:50 Test Item Value Reference Range Interpretation Comments POC-GLUCOSE METER 132 mg/dL 70-110 H : [facility] (BEAKER) (test code = [facility], 1538) 63189: Paper [employer] Machine Operator/Techni kelle ID = [id number] for GHADA BECK BASIC METABOLIC [id number] 05:08:08 Test Item Value Reference Range Interpretation [...] S NOT APPLICABLE FOR DIALYSIS PATIEN TS. [employer] Machine Operator ID - HIEN [id number] 04:56:38 Test Item Value Reference Range Interpretation Comments MAGNESIUM (BEAKER) (test code = 1.9 mg/dL 1.6-2.6 627) [employer] Machine Operator ID - HIEN [id number] 04:56:38 Test Item Value Reference Range Interpretation Comments PHOSPHORUS (BEAKER) (test code = 3.7 mg/dL 2.3-4.7 604) [employer] Machine Operator ID - HIEN MCBC W/PLT COUNT & AUTO [id number] 04:33:28 Test Item Value Reference Range Interpretation [...] = 2801) CBC W/PLT COUNT & AUTO [id number] 22:57:11 Test Item Value Reference Range Interpretation [...] = 2801) RAD, CHEST, 1 VIEW, NON [id number] 22:44:00Reason for exam:- >dyspneaShould this be performed at the bedside?->Yes [facility] 1955 Sex: FFINAL [...] signed by: BRAXTON QUINTERO M.D. on 0:44 KMVMQU-[id number] 22:43:07 Test Item Value Reference Range Interpretation Comments POC-Glucose (test code = 118 mg/dL 70-110 H : T LEEANN AT [facility] 1855) 6720 [facility], 770 30: Paper Products Machine Operator/Techni kelle ID = [id number] for MARFIL, JOSE ARMANDO Lab Interpretation (test Abnormal code = 85600-1) [facility]:07 Test Item Value Reference Range Interpretation Comments POC-Glucose (test code = 118 mg/dL 70-110 H : T ESTED AT [facility]) [address] [place] [address], 770 30: Paper Products Machine Operator/Techni kelle ID = [id number] for MARFIL, JOSE ARMANDO Lab Interpretation (test Abnormal code = 60520-9) [facility]2022-03-09 22:43:07 Test Item Value Reference Range Interpretation Comments POC-Glucose (test code = 118 mg/dL 70-110 H : T ESTED AT [facility]) [address] [place] [address], 770 30: Paper Products Machine Operator/Techni kelle ID = [id number] for MARFIL, JOSE ARMANDO Lab Interpretation (test Abnormal code = 55552-7) [facility]2022-03-09 22:43:07 Test Item Value Reference Range Interpretation Comments POC-Glucose (test code = 118 mg/dL 70-110 H : T ESTED AT [facility]) [address] [place] [address], 770 30: Paper Products Machine Operator/Techni kelle ID = [id number] for MARFIL, JOSE ARMANDO Lab Interpretation (test Abnormal code = 62775-5) [facility]2022-03-09 22:43:07 Test Item Value Reference Range Interpretation Comments POC-Glucose (test code = 118 mg/dL 70-110 H : T ESTED AT [facility]) [address] [place] [address], 770 30: Paper Products Machine Operator/Techni kelle ID = [id number] for MARFIL, JOSE ARMANDO Lab Interpretation (test Abnormal code = 58005-7) [facility]2022-03-09 22:43:07 Test Item Value Reference Range Interpretation Comments POC-Glucose (test code = 118 mg/dL 70-110 H : T ESTED AT [facility]) [address] [place] [address], 770 30: Paper Products Machine Operator/Techni kelle ID = [id number] for MARFIL, JOSE ARMANDO Lab Interpretation (test Abnormal code = 58756-2) [facility]2022-03-09 22:43:07 Test Item Value Reference Range Interpretation Comments POC-Glucose (test code = 118 mg/dL 70-110 H : T ESTED AT [facility]) [address] [place] [address], 770 30: Paper Products Machine Operator/Techni kelle ID = [id number] for MARFIL, JOSE ARMANDO Lab Interpretation (test Abnormal code = 50262-0) [facility]2022-03-09 22:43:07 Test Item Value Reference Range Interpretation Comments POC-Glucose (test code = 118 mg/dL 70-110 H : T ESTED AT [facility]) [address] [place] [address], 770 30: Paper Products Machine Operator/Techni kelle ID = [id number] for MARFIL, JOSE ARMANDO Lab Interpretation (test Abnormal code = 92287-6) [facility]2022-03-09 22:43:07 Test Item Value Reference Range Interpretation Comments POC-Glucose (test code = 118 mg/dL 70-110 H : T ESTED AT [facility]) [address] [place] [address], 770 30: Paper Products Machine Operator/Techni kelle ID = [id number] for MARFIL, JOSE ARMANDO Lab Interpretation (test Abnormal code = 97963-3) [facility]2022-03-09 22:43:07 Test Item Value Reference Range Interpretation Comments POC-Glucose (test code = 118 mg/dL 70-110 H : T ESTED AT [facility]) [address] [place] [address], 770 30: Paper Products Machine Operator/Techni kelle ID = [id number] for MARFIL, JOSE ARMANDO Lab Interpretation (test Abnormal code = 76500-0) [facility]2022-03-09 22:43:07 Test Item Value Reference Range Interpretation Comments POC-Glucose (test code = 118 mg/dL 70-110 H : T ESTED AT [facility]) [address] [place] [address], 770 30: Paper Products Machine Operator/Techni kelle ID = [id number] for MARFIL, JOSE ARMANDO Lab Interpretation (test Abnormal code = 62001-2) [facility]2022-03-09 22:43:07 Test Item Value Reference Range Interpretation Comments POC-Glucose (test code = 118 mg/dL 70-110 H : T ESTED AT [facility]) [address] [place] [address], 770 30: Paper Products Machine Operator/Techni kelle ID = [id number] for MARFIL, JOSE ARMANDO Lab Interpretation (test Abnormal code = 16832-0) [id number] 22:43:07 Test Item Value Reference Range Interpretation Comments POC-Glucose (test code = 118 mg/dL 70-110 H : T ESTED AT [facility] 1855) [address] [place] [address], 770 30: Paper Products Machine Operator/Techni kelle ID = [id number] for MARFIL, JOSE ARMANDO Lab Interpretation (test Abnormal code = 13066-4) [facility]areWXUXXXW1077-56-07 22:43:07 Test Item Value Reference Range Interpretation Comments POC-Glucose (test code = 118 mg/dL 70-110 H : T ESTED AT [facility] 1855) [address] [place] [address], 770 30: Paper Products Machine Operator/Techni kelle ID = [id number] for MARFIL, JOSE ARMANDO Lab Interpretation (test Abnormal code = 41867-1) [facility]2022-03-09 22:43:07 Test Item Value Reference Range Interpretation Comments POC-Glucose (test code = 118 mg/dL 70-110 H : T ESTED AT [facility] 1855) [address] [place] [address], 770 30: Paper Products Machine Operator/Techni kelle ID = [id number] for MARFIL, JOSE ARMANDO Lab Interpretation (test Abnormal code = 41655-5) [facility]areLODPMED0903-06-84 22:43:07 Test Item Value Reference Range Interpretation Comments POC-Glucose (test code = 118 mg/dL 70-110 H : T ESTED AT [facility] 1855) [address] [place] [address], 770 30: Paper Products Machine Operator/Techni kelle ID = [id number] for MARFIL, JOSE ARMANDO Lab Interpretation (test Abnormal code = 39235-8) [facility]areDYORUYK5093-22-67 22:43:07 Test Item Value Reference Range Interpretation Comments POC-GLUCOSE (BEAKER) 118 mg/dL 70-110 H : TESTE D AT [facility] 67 (test code = 1855) [facility], [address]: Paper Products Machine Operator/Techni kelle ID = [id number] for MARF IL, JOSE ARMANDO EIEY-[id number] 22:43:06 Test Item Value Reference Range Interpretation Comments POC-Hemoglobin (test code 8.2 g/dL 12.0-15.0 L : [facility] [address] [place] [address], 770 30: Paper Products Machine Operator/Techni kelle ID = [id number] for MARFIL, JOSE ARMANDO Lab Interpretation (test Abnormal code = 98467-6) [facility]SP-EXCNOVGIMU4966-48-09 22:43:06 Test Item Value Reference Range Interpretation Comments POC-Hematocrit (test code 24 % 36-45 L : = 1857) Paper Products Machine Operator/Techni kelle ID = [id number] for MARFIL, JOSE ARMANDO Lab Interpretation (test Abnormal code = 05367-8) [facility]-[id number] 22:43:06 Test Item Value Reference Range Interpretation Comments POC-Hemoglobin (test code 8.2 g/dL 12.0-15.0 L : TESTED AT [facility] = 1856) [address] [place] [address], 770 30: Paper Products Machine Operator/Techni kelle ID = [id number] for MARFIL, JOSE ARMANDO Lab Interpretation (test Abnormal code = 26254-8) [facility]-[id number] 22:43:06 Test Item Value Reference Range Interpretation Comments POC-Hematocrit (test code 24 % 36-45 L : = 1857) Paper [employer] Machine Operator/Techni kelle ID = [id number] for MARFIL, JOSE ARMANDO Lab Interpretation (test Abnormal code = 56624-6) [facility]-[id number] 22:43:06 Test Item Value Reference Range Interpretation Comments POC-Hemoglobin (test code 8.2 g/dL 12.0-15.0 L : [facility] [address] [place] [address], 770 30: Paper Products Machine Operator/Techni kelle ID = [id number] for MARFIL, JOSE ARMANDO Lab Interpretation (test Abnormal code = 97123-9) [facility]-[id number] 22:43:06 Test Item Value Reference Range Interpretation Comments POC-Hematocrit (test code 24 % 36-45 L : = 1857) Paper [employer] Machine Operator/Techni kelle ID = [id number] for MARFIL, JOSE ARMANDO Lab Interpretation (test Abnormal code = 80653-5) [facility]-[id number] 22:43:06 Test Item Value Reference Range Interpretation Comments POC-Hemoglobin (test code 8.2 g/dL 12.0-15.0 L : TESTED AT [facility] = 1856) [address] [place] [address], 770 30: Paper Products Machine Operator/Techni kelle ID = [id number] for MARFIL, JOSE ARMANDO Lab Interpretation (test Abnormal code = 23162-1) [facility]-[id number] 22:43:06 Test Item Value Reference Range Interpretation Comments POC-Hematocrit (test code 24 % 36-45 L : = 1857) Paper Products Machine Operator/Techni kelle ID = [id number] for MARFIL, JOSE ARMANDO Lab Interpretation (test Abnormal code = 08275-4) [facility]-[id number] 22:43:06 Test Item Value Reference Range Interpretation Comments POC-Hemoglobin (test code 8.2 g/dL 12.0-15.0 L : TESTED AT [facility] = 1856) [address] [place] [address], 770 30: Paper Products Machine Operator/Techni kelle ID = [id number] for MARFIL, JOSE ARMANDO Lab Interpretation (test Abnormal code = 61214-8) [facility]-[id number] 22:43:06 Test Item Value Reference Range Interpretation Comments POC-Hematocrit (test code 24 % 36-45 L : = 1857) Paper Products Machine Operator/Techni kelle ID = [id number] for MARFIL, JOSE ARMANDO Lab Interpretation (test Abnormal code = 08796-6) [facility]-NHPVGVQXVW0258-04-46 22:43:06 Test Item Value Reference Range Interpretation Comments POC-Hemoglobin (test code 8.2 g/dL 12.0-15.0 L : TESTED AT [facility] = 1856) [address] [place] [address], 770 30: Paper Products Machine Operator/Techni kelle ID = [id number] for MARFIL, JOSE ARMANDO Lab Interpretation (test Abnormal code = 22664-2) [facility]-UQXZQCUSSW6046-06-30 22:43:06 Test Item Value Reference Range Interpretation Comments POC-Hematocrit (test code 24 % 36-45 L : = 1857) Paper Products Machine Operator/Techni kelle ID = [id number] for MARFIL, JOSE ARMANDO Lab Interpretation (test Abnormal code = 63855-5) [facility]-[id number] 22:43:06 Test Item Value Reference Range Interpretation Comments POC-Hemoglobin (test code 8.2 g/dL 12.0-15.0 L : [facility] [address] [facility], 770 30: Paper Products Machine Operator/Techni kelle ID = [id number] for MARFIL, JOSE ARMANDO Lab Interpretation (test Abnormal code = 57847-2) [facility]-[id number] 22:43:06 Test Item Value Reference Range Interpretation Comments POC-Hematocrit (test code 24 % 36-45 L : = 1857) Paper Products Machine Operator/Techni kelle ID = [id number] for MARFIL, JOSE ARMANDO Lab Interpretation (test Abnormal code = 15764-2) [facility]-[id number] 22:43:06 Test Item Value Reference Range Interpretation Comments POC-Hemoglobin (test code 8.2 g/dL 12.0-15.0 L : TESTED AT [facility] = 1856) [address] [facility], 770 30: Paper Products Machine Operator/Techni kelle ID = [id number] for MARFIL, JOSE ARMANDO Lab Interpretation (test Abnormal code = 05173-6) [facility]-[id number] 22:43:06 Test Item Value Reference Range Interpretation Comments POC-Hematocrit (test code 24 % 36-45 L : = 1857) Paper [employer] Machine Operator/Techni kelle ID = [id number] for MARFIL, JOSE ARMANDO Lab Interpretation (test Abnormal code = 26583-0) [facility]-[id number] 22:43:06 Test Item Value Reference Range Interpretation Comments POC-Hemoglobin (test code 8.2 g/dL 12.0-15.0 L : TESTED AT [facility] = 1856) [address] [facility], 770 30: Paper Products Machine Operator/Techni kelle ID = [id number] for MARFIL, JOSE ARMANDO Lab Interpretation (test Abnormal code = 10528-6) [facility]-[id number] 22:43:06 Test Item Value Reference Range Interpretation Comments POC-Hematocrit (test code 24 % 36-45 L : = 1857) Paper [employer] Machine Operator/Techni kelle ID = [id number] for MARFIL, JOSE ARMANDO Lab Interpretation (test Abnormal code = 84795-9) [facility]-[id number] 22:43:06 Test Item Value Reference Range Interpretation Comments POC-Hemoglobin (test code 8.2 g/dL 12.0-15.0 L : [facility] [address] [facility], 770 30: Paper Products Machine Operator/Techni kelle ID = [id number] for MARFIL, JOSE ARMANDO Lab Interpretation (test Abnormal code = 39967-8) [facility]-[id number] 22:43:06 Test Item Value Reference Range Interpretation Comments POC-Hematocrit (test code 24 % 36-45 L : = 1857) Paper [employer] Machine Operator/Techni kelle ID = [id number] for MARFIL, JOSE ARMANDO Lab Interpretation (test Abnormal code = 98234-6) [facility]-[id number] 22:43:06 Test Item Value Reference Range Interpretation Comments POC-Hemoglobin (test code 8.2 g/dL 12.0-15.0 L : TESTED AT [facility] = 1856) [address] [place] [address], 770 30: Paper Products Machine Operator/Techni kelle ID = [id number] for MARFIL, JOSE ARMANDO Lab Interpretation (test Abnormal code = 66790-6) [facility]-[id number] 22:43:06 Test Item Value Reference Range Interpretation Comments POC-Hematocrit (test code 24 % 36-45 L : = 1857) Paper [employer] Machine Operator/Techni kelle ID = [id number] for MARFIL, JOSE ARMANDO Lab Interpretation (test Abnormal code = 41518-5) [facility]-[id number] 22:43:06 Test Item Value Reference Range Interpretation Comments POC-Hemoglobin (test code 8.2 g/dL 12.0-15.0 L : [facility]56[facility] [address] [place] [address], 770 30: Paper Products Machine Operator/Techni kelle ID = [id number] for MARFIL, JOSE ARMANDO Lab Interpretation (test Abnormal code = 40014-7) [facility]-[id number] 22:43:06 Test Item Value Reference Range Interpretation Comments POC-Hematocrit (test code 24 % 36-45 L : = 1857) [employer] Machine Operator/Techni kelle ID = [id number] for MARFIL, JOSE ARMANDO Lab Interpretation (test Abnormal code = 39997-5) [facility]-MPIWEXPKJQ8537-87-23 22:43:06 Test Item Value Reference Range Interpretation Comments POC-Hemoglobin (test code 8.2 g/dL 12.0-15.0 L : [facility]56[facility] [address] [place] [address], 770 30: Paper Products Machine Operator/Techni kelle ID = [id number] for MARFIL, JOSE ARMANDO Lab Interpretation (test Abnormal code = 75238-0) [facility]-[id number] 22:43:06 Test Item Value Reference Range Interpretation Comments POC-Hematocrit (test code 24 % 36-45 L : = 1857) [employer] Machine Operator/Techni kelle ID = [id number] for MARFIL, JOSE ARMANDO Lab Interpretation (test Abnormal code = 22282-3) [facility]-PCVYVWGRCL9842-74-87 22:43:06 Test Item Value Reference Range Interpretation Comments POC-Hemoglobin (test code 8.2 g/dL 12.0-15.0 L : [facility] 1856[facility] [address] [place] [address], 770 30: Paper Products Machine Operator/Techni kelle ID = [id number] for MARFIL, JOSE ARMANDO Lab Interpretation (test Abnormal code = 18021-4) [facility]-[id number] 22:43:06 Test Item Value Reference Range Interpretation Comments POC-Hematocrit (test code 24 % 36-45 L : = 1857) Paper [employer] Machine Operator/Techni kelle ID = [id number] for MARFIL, JOSE ARMANDO Lab Interpretation (test Abnormal code = 56199-6) [facility]OEFTR9760-13-16 22:43:06 Test Item Value Reference Range Interpretation Comments POC-Hemoglobin (test code 8.2 g/dL 12.0-15.0 L : [facility]56[facility] [address] [place] [address], 770 30: Paper Products Machine Operator/Techni kelle ID = [id number] for MARFIL, JOSE ARMANDO Lab Interpretation (test Abnormal code = 07598-4) [facility]uhsdbLOPH-LESTZCMVIF5974-47-09 22:43:06 Test Item Value Reference Range Interpretation Comments POC-Hematocrit (test code 24 % 36-45 L : = 1857) [employer] Machine Operator/Techni kelle ID = [id number] for MARFIL, JOSE ARMANDO Lab Interpretation (test Abnormal code = 68525-5) [facility] HospitalDxqgigRMFW-LTSNBFDJUM1032-41-09 22:43:06 Test Item Value Reference Range Interpretation Comments POC-Hemoglobin (test code 8.2 g/dL 12.0-15.0 L : TESTED AT [facility] = 1856) [address] [facility], 770 30: Paper Products Machine Operator/Techni kelle ID = [id number] for MARFIL, JOSE ARMANDO Lab Interpretation (test Abnormal code = 07181-5) [facility] HospitalZprrqgQBXX-FWYWQYZLIV7970-85-09 22:43:06 Test Item Value Reference Range Interpretation Comments POC-Hematocrit (test code 24 % 36-45 L : = 1857) [employer] Machine Operator/Techni kelle ID = [id number] for MARFIL, JOSE ARMANDO Lab Interpretation (test Abnormal code = 72046-3) [facility] HospitalOrjejbYZWA-LWYUUBVMXM0445-68-09 22:43:06 Test Item Value Reference Range Interpretation Comments POC-HEMOGLOBIN 8.2 g/dL 12.0-15.0 L : TESTED AT [facility] 6720 (BEAKER) (test code = [facility], 1856) [address]: Paper Products Machine Operator/Techni kelle ID = [id number] for MARF IL, JOSE ARMANDO KVDO-[id number] 22:43:06 Test Item Value Reference Range Interpretation Comments POC-HEMATOCRIT 24 % 36-45 L : [employer] Machine Operator/Te chnician ID = (BEAKER) (test code = 038718 for MARFIL, JOSE ARMANDO 1857) JMX-Qsdyrwyyk8132-25-09 22:43:05 Test Item Value Reference Range Interpretation Comments POC-Potassium (test code 3.4 meq/L 3.6-5.5 L : T ESTED AT [facility] = 1540) [address] [facility], 770 30: Paper Products Machine Operator/Techni kelle ID = [id number] for MARFIL, JOSE ARMANDO Lab Interpretation (test Abnormal code = 83819-9) [facility]-Rbzhwh1006-06-04 22:43:05 Test Item Value Reference Range Interpretation Comments POC-Sodium (test code = 137 meq/L 135-148 : TE STED AT [facility] 1542) [address] [place] [address], 770 30: Paper Products Machine Operator/Techni kelle ID = [id number] for MARFIL, JOSE ARMANDO Lab Interpretation (test Normal code = 93798-4) [facility]-[id number] 22:43:05 Test Item Value Reference Range Interpretation Comments POC-Potassium (test code 3.4 meq/L 3.6-5.5 L : T ESTED AT [facility] = 1540) [address] [place] [address], 770 30: Paper Products Machine Operator/Techni kelle ID = [id number] for MARFIL, JOSE ARMANDO Lab Interpretation (test Abnormal code = 88106-4) [facility] 22:43:05 Test Item Value Reference Range Interpretation Comments POC-Sodium (test code = 137 meq/L 135-148 : TE STED AT [facility] 1542) [address] [place] [address], 770 30: Paper Products Machine Operator/Techni kelle ID = [id number] for MARFIL, JOSE ARMANDO Lab Interpretation (test Normal code = 98618-9) [facility]-Yjwdmrtsz2796-69-27 22:43:05 Test Item Value Reference Range Interpretation Comments POC-Potassium (test code 3.4 meq/L 3.6-5.5 L : T ESTED AT [facility] = 1540) [address] [place] [address], 770 30: Paper Products Machine Operator/Techni kelle ID = [id number] for MARFIL, JOSE ARMANDO Lab Interpretation (test Abnormal code = 69888-4) [facility]-[id number] 22:43:05 Test Item Value Reference Range Interpretation Comments POC-Sodium (test code = 137 meq/L 135-148 : TE STED AT [facility] 1542) [address] [place] [address], 770 30: [employer] Machine Operator/Techni kelle ID = [id number] for MARFIL, JOSE ARMANDO Lab Interpretation (test Normal code = 26574-5) [facility]-[id number] 22:43:05 Test Item Value Reference Range Interpretation Comments POC-Potassium (test code 3.4 meq/L 3.6-5.5 L : T ESTED AT [facility] = 1540) [address] [place] [address], 770 30: [employer] Machine Operator/Techni kelle ID = [id number] for MARFIL, JOSE ARMANDO Lab Interpretation (test Abnormal code = 29242-4) [facility]-[id number] 22:43:05 Test Item Value Reference Range Interpretation Comments POC-Sodium (test code = 137 meq/L 135-148 : TE STED AT [facility] 1542) [address] [place] [address], [facility] 30: [employer] Products Machine Operator/Techni kelle ID = [id number] for MARFIL, JOSE ARMANDO Lab Interpretation (test Normal code = 75504-8) [facility]-[id number] 22:43:05 Test Item Value Reference Range Interpretation Comments POC-Potassium (test code 3.4 meq/L 3.6-5.5 L : T ESTED AT [facility] = 1540) [address] [place] [address], [facility] 30: [employer] Machine Operator/Techni kelle ID = [id number] for MARFIL, JOSE ARMANDO Lab Interpretation (test Abnormal code = 44229-4) [facility]-[id number] 22:43:05 Test Item Value Reference Range Interpretation Comments POC-Sodium (test code = 137 meq/L 135-148 : TE STED AT [facility] 1542) [address] [place] [address], [facility] 30: [employer] Machine Operator/Techni kelle ID = [id number] for MARFIL, JOSE ARMANDO Lab Interpretation (test Normal code = 44119-0) [facility]-Cyhnignad0597-74-14 22:43:05 Test Item Value Reference Range Interpretation Comments POC-Potassium (test code 3.4 meq/L 3.6-5.5 L : T ESTED AT [facility] = 1540) [address] [place] [address], [facility] 30: [employer] Machine Operator/Techni kelle ID = [id number] for MARFIL, JOSE ARMANDO Lab Interpretation (test Abnormal code = 93098-9) [facility]-[id number] 22:43:05 Test Item Value Reference Range Interpretation Comments POC-Sodium (test code = 137 meq/L 135-148 : TE STED AT [facility] 1542) [address] [facility], 770 30: Paper Products Machine Operator/Techni kelle ID = [id number] for MARFIL, JOSE ARMANDO Lab Interpretation (test Normal code = 58262-1) [facility]-[id number] 22:43:05 Test Item Value Reference Range Interpretation Comments POC-Potassium (test code 3.4 meq/L 3.6-5.5 L : T ESTED AT [facility] = 1540) [address] [place] [address], 770 30: Paper Products Machine Operator/Techni kelle ID = [id number] for MARFIL, JOSE ARMANDO Lab Interpretation (test Abnormal code = 41717-5) [facility]-[id number] 22:43:05 Test Item Value Reference Range Interpretation Comments POC-Sodium (test code = 137 meq/L 135-148 : TE STED AT [facility] 1542) [address] [place] [address], 770 30: Paper [employer] Machine Operator/Techni kelle ID = [id number] for MARFIL, JOSE ARMANDO Lab Interpretation (test Normal code = 69307-6) [facility]-Ayteyaocl2772-07-65 22:43:05 Test Item Value Reference Range Interpretation Comments POC-Potassium (test code 3.4 meq/L 3.6-5.5 L : T ESTED AT [facility] = 1540) [address] [place] [address], 770 30: Paper [employer] Machine Operator/Techni kelle ID = [id number] for MARFIL, JOSE ARMANDO Lab Interpretation (test Abnormal code = 45830-2) [facility]-[id number] 22:43:05 Test Item Value Reference Range Interpretation Comments POC-Sodium (test code = 137 meq/L 135-148 : TE STED AT [facility] 1542) [address] [place] [address], 770 30: Paper [employer] Machine Operator/Techni kelle ID = [id number] for MARFIL, JOSE ARMANDO Lab Interpretation (test Normal code = 69902-0) [facility]-[id number] 22:43:05 Test Item Value Reference Range Interpretation Comments POC-Potassium (test code 3.4 meq/L 3.6-5.5 L : T ESTED AT [facility] = 1540) [address] [place] [address], 770 30: Paper Products Machine Operator/Techni kelle ID = [id number] for MARFIL, JOSE ARMANDO Lab Interpretation (test Abnormal code = 51727-4) [facility]-[id number] 22:43:05 Test Item Value Reference Range Interpretation Comments POC-Sodium (test code = 137 meq/L 135-148 : TE STED AT [facility] 1542) [address] [place] [address], 770 30: Paper [employer] Machine Operator/Techni kelle ID = [id number] for MARFIL, JOSE ARMANDO Lab Interpretation (test Normal code = 56698-7) [facility]-Aebkrljhm9007-79-87 22:43:05 Test Item Value Reference Range Interpretation Comments POC-Potassium (test code 3.4 meq/L 3.6-5.5 L : T ESTED AT [facility] = 1540) [address] [place] [address], 770 30: Paper Products Machine Operator/Techni kelle ID = [id number] for MARFIL, JOSE ARMANDO Lab Interpretation (test Abnormal code = 42374-1) [facility]-[id number] 22:43:05 Test Item Value Reference Range Interpretation Comments POC-Sodium (test code = 137 meq/L 135-148 : TE STED AT [facility] 1542) [address] [place] [address], 770 30: Paper Products Machine Operator/Techni kelle ID = [id number] for MARFIL, JOSE ARMANDO Lab Interpretation (test Normal code = 46503-7) [facility]-Hlqurtuom1729-65-31 22:43:05 Test Item Value Reference Range Interpretation Comments POC-Potassium (test code 3.4 meq/L 3.6-5.5 L : T ESTED AT [facility] = 1540) [address] [place] [address], 770 30: Paper Products Machine Operator/Techni kelle ID = [id number] for MARFIL, JOSE ARMANDO Lab Interpretation (test Abnormal code = 28750-2) [facility]-[id number] 22:43:05 Test Item Value Reference Range Interpretation Comments POC-Sodium (test code = 137 meq/L 135-148 : TE STED AT [facility] 1542) [address] [place] [address], 770 30: Paper Products Machine Operator/Techni kelle ID = [id number] for MARFIL, JOSE ARMANDO Lab Interpretation (test Normal code = 30894-7) [facility]-[id number] 22:43:05 Test Item Value Reference Range Interpretation Comments POC-Potassium (test code 3.4 meq/L 3.6-5.5 L : T ESTED AT [facility] = 1540) [address] [place] [address], 770 30: Paper Products Machine Operator/Techni kelle ID = [id number] for MARFIL, JOSE ARMANDO Lab Interpretation (test Abnormal code = 54514-4) [facility]-[id number] 22:43:05 Test Item Value Reference Range Interpretation Comments POC-Sodium (test code = 137 meq/L 135-148 : TE STED AT [facility] 1542) [address] [place] [address], 770 30: Paper Products Machine Operator/Techni kelle ID = [id number] for MARFIL, JOSE ARMANDO Lab Interpretation (test Normal code = 42023-5) [facility]-[id number] 22:43:05 Test Item Value Reference Range Interpretation Comments POC-Potassium (test code 3.4 meq/L 3.6-5.5 L : T ESTED AT [facility] = 1540) [address] [place] [address], 770 30: Paper Products Machine Operator/Techni kelle ID = [id number] for MARFIL, JOSE ARMANDO Lab Interpretation (test Abnormal code = 92756-4) [facility]-[id number] 22:43:05 Test Item Value Reference Range Interpretation Comments POC-Sodium (test code = 137 meq/L 135-148 : TE STED AT [facility] 1542) [address] [place] [address], [facility] 30: Paper Products Machine Operator/Techni kelle ID = [id number] for MARFIL, JOSE ARMANDO Lab Interpretation (test Normal code = 05085-6) [facility]-[id number] 22:43:05 Test Item Value Reference Range Interpretation Comments POC-Potassium (test code 3.4 meq/L 3.6-5.5 L : T ESTED AT [facility] = 1540) [address] [place] [address], 770 30: Paper Products Machine Operator/Techni kelle ID = [id number] for MARFIL, JOSE ARMANDO Lab Interpretation (test Abnormal code = 40599-8) [facility]-[id number] 22:43:05 Test Item Value Reference Range Interpretation Comments POC-Sodium (test code = 137 meq/L 135-148 : TE STED AT [facility] 1542) [address] [place] [address], 770 30: Paper [employer] Machine Operator/Techni kelle ID = [id number] for MARFIL, JOSE ARMANDO Lab Interpretation (test Normal code = 61477-5) [facility]-Opzzkfydn0722-24-23 22:43:05 Test Item Value Reference Range Interpretation Comments POC-Potassium (test code 3.4 meq/L 3.6-5.5 L : T ESTED AT [facility] = 1540) [address] [place] [address], 770 30: Paper Products Machine Operator/Techni kelle ID = [id number] for MARFIL, JOSE ARMANDO Lab Interpretation (test Abnormal code = 66388-8) [facility]96 22:43:05 Test Item Value Reference Range Interpretation Comments POC-Sodium (test code = 137 meq/L 135-148 : TE STED AT [facility] 1542) [address] [place] [address], 770 30: Paper Products Machine Operator/Techni kelle ID = [id number] for MARFIL, JOSE ARMANDO Lab Interpretation (test Normal code = 68308-5) [facility]-[id number] 22:43:05 Test Item Value Reference Range Interpretation Comments POC-Potassium (test code 3.4 meq/L 3.6-5.5 L : T ESTED AT [facility] = 1540) [address] [place] [address], 770 30: Paper Products Machine Operator/Techni kelle ID = [id number] for MARFIL, JOSE ARMANDO Lab Interpretation (test Abnormal code = 63148-0) [facility]z1831-59-90 22:43:05 Test Item Value Reference Range Interpretation Comments POC-Sodium (test code = 137 meq/L 135-148 : TE STED AT [facility] 1542) [address] [place] [address], 770 30: Paper Products Machine Operator/Techni kelle ID = [id number] for MARFIL, JOSE ARMANDO Lab Interpretation (test Normal code = 83744-8) [facility]-[id number] 22:43:05 Test Item Value Reference Range Interpretation Comments POC-SODIUM (BEAKER) 137 meq/L 135-148 : TESTED AT [facility] 6720 (test code = 1542) [facility] [place] [place] [address]: Paper Products Machine Operator/Techni kelle ID = [id number] for MARF [place], JOSE ARMANDO FQRO-[id number] 22:43:05 Test Item Value Reference Range Interpretation Comments POC-POTASSIUM 3.4 meq/L 3.6-5.5 L : TESTED AT [facility] 6720 (BEAKER) (test code [facility], = 1540) [address]: Paper Products Machine Operator/Techni kelle ID = [id number] for MARF IL, JOSE ARMANDO POC-Blood gases, [id number] 22:42:59 Test Item Value Reference Range Interpretation Comments Temp. Celsius-POC (test 101.3 code = 1834) FIO2-POC (test code = 28 1835) pH, Venous-POC (test 7.484 7.320-7.420 H : TESTE D AT [facility] code = 1842) [address] [place], [address] PCO2, Venous-POC (test 39.4 See_Comment L If [...] mated message] code = 1844) The system [employer] generated this result transmit levi reference range : 25.0 - 40.0 mm Hg. The reference r alba was not used to interpret this result as normal/abnormal . SO2, Venous-POC (test 87.0 % 40.0-70.0 H code = 1845) HCO3, Venous-POC (test 29.3 meq/L 21.0-29.0 H code = 1846) BE, Venous-POC (test 6.0 meq/L -2.0-3.0 H : code = 1847) [employer] Machine Operator/Techni kelle ID = [id number] for MARFIL, JOSE ARMANDO Lab Interpretation Abnormal (test code = 48271-4) [facility]-Blood gases, [id number] 22:42:59 Test Item Value Reference Range Interpretation Comments Temp. Celsius-POC (test 101.3 code = 1834) FIO2-POC (test code = 1834) pH, Venous-POC (test 7.484 7.320-7.420 H : TESTE D AT [facility] code = 1842) [address] [facility] [place], [address] PCO2, Venous-POC (test 39.4 See_Comment L If [...] mated message] code = 1844) The system [employer] generated this result transmit levi reference range : 25.0 - 40.0 mm Hg. The reference r alba was not used to interpret this result as normal/abnormal . SO2, Venous-POC (test 87.0 % 40.0-70.0 H code = 1845) HCO3, Venous-POC (test 29.3 meq/L 21.0-29.0 H code = 1846) BE, Venous-POC (test 6.0 meq/L -2.0-3.0 H : code = 1847) [employer] Machine Operator/Techni kelle ID = [id number] for JOSE ARMANDO CELIS Lab Interpretation Abnormal (test code = 32193-8) [facility]-Blood gases, [id number] 22:42:59 Test Item Value Reference Range Interpretation Comments Temp. Celsius-POC (test 101.3 code = 1834) FIO2-POC (test code = 1834) pH, Venous-POC (test 7.484 7.320-7.420 H : TESTE D AT [facility] code = 1842) [address] [place], [address] PCO2, Venous-POC (test 39.4 See_Comment L If [...] mated message] code = 1844) The system [employer] generated this result transmit levi reference range : 25.0 - 40.0 mm Hg. The reference r alba was not used to interpret this result as normal/abnormal . SO2, Venous-POC (test 87.0 % 40.0-70.0 H code = 1845) HCO3, Venous-POC (test 29.3 meq/L 21.0-29.0 H code = 1846) BE, Venous-POC (test 6.0 meq/L -2.0-3.0 H : code = 1847) [employer] Machine Operator/Techni kelle ID = [id number] for JOSE ARMANDO CELIS Lab Interpretation Abnormal (test code = 16138-5) [facility]-Blood gases, [id number] 22:42:59 Test Item Value Reference Range Interpretation Comments Temp. Celsius-POC (test 101.3 code = 1834) FIO2-POC (test code = 28 1835) pH, Venous-POC (test 7.484 7.320-7.420 H : TESTE D AT [facility] code = 1842) [address] [place], [address] PCO2, Venous-POC (test 39.4 See_Comment L If [...] mated message] code = 1844) The system [employer] generated this result transmit levi reference range : 25.0 - 40.0 mm Hg. The reference r alba was not used to interpret this result as normal/abnormal . SO2, Venous-POC (test 87.0 % 40.0-70.0 H code = 1845) HCO3, Venous-POC (test 29.3 meq/L 21.0-29.0 H code = 1846) BE, Venous-POC (test 6.0 meq/L -2.0-3.0 H : code = 1847) [employer] Machine Operator/Techni kelle ID = [id number] for MARFIL, JOSE ARMANDO Lab Interpretation Abnormal (test code = 00245-4) [facility]-Blood gases, [id number] 22:42:59 Test Item Value Reference Range Interpretation Comments Temp. Celsius-POC (test 101.3 code = 1834) FIO2-POC (test code = 28 5) pH, Venous-POC (test 7.484 7.320-7.420 H : TESTE D AT [facility] code = 1842) [address] [facility] [place], [address] PCO2, Venous-POC (test 39.4 See_Comment L If [...] mated message] code = 1844) The system [employer] generated this result transmit levi reference range : 25.0 - 40.0 mm Hg. The reference r alba was not used to interpret this result as normal/abnormal . SO2, Venous-POC (test 87.0 % 40.0-70.0 H code = 1845) HCO3, Venous-POC (test 29.3 meq/L 21.0-29.0 H code = 1846) BE, Venous-POC (test 6.0 meq/L -2.0-3.0 H : code = 1847) [employer] Machine Operator/Techni kelle ID = [id number] for MARFIL, JOSE ARMANDO Lab Interpretation Abnormal (test code = 29560-2) [facility]-Blood gases, [id number] 22:42:59 Test Item Value Reference Range Interpretation Comments Temp. Celsius-POC (test 101.3 code = 1834) FIO2-POC (test code = 28 5) pH, Venous-POC (test 7.484 7.320-7.420 H : TESTE D AT [facility] code = 1842) [address] [place], [address] PCO2, Venous-POC (test 39.4 See_Comment L If [...] mated message] code = 1844) The system [employer] generated this result transmit levi reference range : 25.0 - 40.0 mm Hg. The reference r alba was not used to interpret this result as normal/abnormal . SO2, Venous-POC (test 87.0 % 40.0-70.0 H code = 1845) HCO3, Venous-POC (test 29.3 meq/L 21.0-29.0 H code = 1846) BE, Venous-POC (test 6.0 meq/L -2.0-3.0 H : code = 1847) [employer] Machine Operator/Techni kelle ID = [id number] for JOSE ARMANDO CELIS Lab Interpretation Abnormal (test code = 45489-2) [facility]-Blood gases, [id number] 22:42:59 Test Item Value Reference Range Interpretation Comments Temp. Celsius-POC (test 101.3 code = 1834) FIO2-POC (test code = 28 1835) pH, Venous-POC (test 7.484 7.320-7.420 H : TESTE D AT [facility] code = 1842) [address] [place], [address] PCO2, Venous-POC (test 39.4 See_Comment L If [...] mated message] code = 1844) The system [employer] generated this result transmit levi reference range : 25.0 - 40.0 mm Hg. The reference r alba was not used to interpret this result as normal/abnormal . SO2, Venous-POC (test 87.0 % 40.0-70.0 H code = 1845) HCO3, Venous-POC (test 29.3 meq/L 21.0-29.0 H code = 1846) BE, Venous-POC (test 6.0 meq/L -2.0-3.0 H : code = 1847) [employer] Machine Operator/Techni kelle ID = [id number] for MARFIL, JOSE ARMANDO Lab Interpretation Abnormal (test code = 90884-3) [facility]-Blood gases, [id number] 22:42:59 Test Item Value Reference Range Interpretation Comments Temp. Celsius-POC (test 101.3 code = 1834) FIO2-POC (test code = 28 1835) pH, Venous-POC (test 7.484 7.320-7.420 H : TESTE D AT [facility] code = 1842) [address] [place], [address] PCO2, Venous-POC (test 39.4 See_Comment L If [...] mated message] code = 1844) The system [employer] generated this result transmit levi reference range : 25.0 - 40.0 mm Hg. The reference r alba was not used to interpret this result as normal/abnormal . SO2, Venous-POC (test 87.0 % 40.0-70.0 H code = 1845) HCO3, Venous-POC (test 29.3 meq/L 21.0-29.0 H code = 1846) BE, Venous-POC (test 6.0 meq/L -2.0-3.0 H : code = 1847) [employer] Machine Operator/Techni kelle ID = [id number] for MARFIL, JOSE ARMANDO Lab Interpretation Abnormal (test code = 03612-6) [facility]-Blood gases, [id number] 22:42:59 Test Item Value Reference Range Interpretation Comments Temp. Celsius-POC (test 101.3 code = 1834) FIO2-POC (test code = 1834) pH, Venous-POC (test 7.484 7.320-7.420 H : TESTE D AT [facility] code = 1842) [address] [place], [address] PCO2, Venous-POC (test 39.4 See_Comment L If [...] mated message] code = 1844) The system [employer] generated this result transmit levi reference range : 25.0 - 40.0 mm Hg. The reference r alba was not used to interpret this result as normal/abnormal . SO2, Venous-POC (test 87.0 % 40.0-70.0 H code = 1845) HCO3, Venous-POC (test 29.3 meq/L 21.0-29.0 H code = 1846) BE, Venous-POC (test 6.0 meq/L -2.0-3.0 H : code = 1847) [employer] Machine Operator/Techni kelle ID = [id number] for HERBERT CELISE Lab Interpretation Abnormal (test code = 14650-6) [facility]-Blood gases, [id number] 22:42:59 Test Item Value Reference Range Interpretation Comments Temp. Celsius-POC (test 101.3 code = 1834) FIO2-POC (test code = 1834) pH, Venous-POC (test 7.484 7.320-7.420 H : TESTE D AT [facility] code = 1842) [address] [place], [address] PCO2, Venous-POC (test 39.4 See_Comment L If [...] mated message] code = 1844) The system [employer] generated this result transmit levi reference range : 25.0 - 40.0 mm Hg. The reference r alba was not used to interpret this result as normal/abnormal . SO2, Venous-POC (test 87.0 % 40.0-70.0 H code = 1845) HCO3, Venous-POC (test 29.3 meq/L 21.0-29.0 H code = 1846) BE, Venous-POC (test 6.0 meq/L -2.0-3.0 H : code = 1847) [employer] Machine Operator/Techni kelle ID = [id number] for JOSE ARMANDO CELIS Lab Interpretation Abnormal (test code = 39460-4) [facility]-Blood gases, [id number] 22:42:59 Test Item Value Reference Range Interpretation Comments Temp. Celsius-POC (test 101.3 code = 1834) FIO2-POC (test code = 28 1835) pH, Venous-POC (test 7.484 7.320-7.420 H : TESTE D AT [facility] code = 1842) [address] [facility], [address] PCO2, Venous-POC (test 39.4 See_Comment L If [...] mated message] code = 1844) The system [employer] generated this result transmit levi reference range : 25.0 - 40.0 mm Hg. The reference r alba was not used to interpret this result as normal/abnormal . SO2, Venous-POC (test 87.0 % 40.0-70.0 H code = 1845) HCO3, Venous-POC (test 29.3 meq/L 21.0-29.0 H code = 1846) BE, Venous-POC (test 6.0 meq/L -2.0-3.0 H : code = 1847) [employer] Machine Operator/Techni kelle ID = [id number] for MARFIL, JOSE ARMANDO Lab Interpretation Abnormal (test code = 21996-6) [facility]-Blood gases, [id number] 22:42:59 Test Item Value Reference Range Interpretation Comments Temp. Celsius-POC (test 101.3 code = 1834) FIO2-POC (test code = 1834) pH, Venous-POC (test 7.484 7.320-7.420 H : TESTE D AT [facility] code = 1842) [address] [place], [address] PCO2, Venous-POC (test 39.4 See_Comment L If [...] mated message] code = 1844) The system [employer] generated this result transmit levi reference range : 25.0 - 40.0 mm Hg. The reference r alba was not used to interpret this result as normal/abnormal . SO2, Venous-POC (test 87.0 % 40.0-70.0 H code = 1845) HCO3, Venous-POC (test 29.3 meq/L 21.0-29.0 H code = 1846) BE, Venous-POC (test 6.0 meq/L -2.0-3.0 H : code = 1847) [employer] Machine Operator/Techni kelle ID = [id number] for MARFILWILFRIDOJOSE ARMANDO Lab Interpretation Abnormal (test code = 68786-1) [facility]-Blood gases, [id number] 22:42:59 Test Item Value Reference Range Interpretation Comments Temp. Celsius-POC (test 101.3 code = 1834) FIO2-POC (test code = 5) pH, Venous-POC (test 7.484 7.320-7.420 H : TESTE D AT [facility] code = 1842) [address] [place], [address] PCO2, Venous-POC (test 39.4 See_Comment L If [...] mated message] code = 1844) The system [employer] generated this result transmit levi reference range : 25.0 - 40.0 mm Hg. The reference r alba was not used to interpret this result as normal/abnormal . SO2, Venous-POC (test 87.0 % 40.0-70.0 H code = 1845) HCO3, Venous-POC (test 29.3 meq/L 21.0-29.0 H code = 1846) BE, Venous-POC (test 6.0 meq/L -2.0-3.0 H : code = 1847) [employer] Machine Operator/Techni kelle ID = [id number] for VIMAL JOSE ARMANDO Lab Interpretation Abnormal (test code = 36631-0) [facility]-Blood gases, [id number] 22:42:59 Test Item Value Reference Range Interpretation Comments Temp. Celsius-POC (test 101.3 code = 1834) FIO2-POC (test code = 28 1835) pH, Venous-POC (test 7.484 7.320-7.420 H : TESTE D AT [facility] code = 1842) [address] [place], [address] PCO2, Venous-POC (test 39.4 See_Comment L If [...] mated message] code = 1844) The system [employer] generated this result transmit levi reference range : 25.0 - 40.0 mm Hg. The reference r alba was not used to interpret this result as normal/abnormal . SO2, Venous-POC (test 87.0 % 40.0-70.0 H code = 1845) HCO3, Venous-POC (test 29.3 meq/L 21.0-29.0 H code = 1846) BE, Venous-POC (test 6.0 meq/L -2.0-3.0 H : code = 1847) Paper Products Machine Operator/Techni kelle ID = [id number] for MARFIL, JOSE ARMANDO Lab Interpretation Abnormal (test code = 40334-3) [facility]-Blood gases, [id number] 22:42:59 Test Item Value Reference Range Interpretation Comments Temp. Celsius-POC (test 101.3 code = 1834) FIO2-POC (test code = 28 1834) pH, Venous-POC (test 7.484 7.320-7.420 H : TESTE D AT [facility] code = 1842) [address], [address] PCO2, Venous-POC (test 39.4 See_Comment L If [...] mated message] code = 1844) The system [employer] generated this result transmit levi reference range : 25.0 - 40.0 mm Hg. The reference r alba was not used to interpret this result as normal/abnormal . SO2, Venous-POC (test 87.0 % 40.0-70.0 H code = 1845) HCO3, Venous-POC (test 29.3 meq/L 21.0-29.0 H code = 1846) BE, Venous-POC (test 6.0 meq/L -2.0-3.0 H : code = 1847) Paper Products Machine Operator/Techni kelle ID = [id number] for MARFIL, JOSE ARMANDO Lab Interpretation Abnormal (test code = 06850-2) [facility]-Blood gases, [id number] 22:42:59 Test Item Value Reference Range Interpretation Comments Temp. Celsius-POC (test 101.3 code = 1834) FIO2-POC (test code = 28 1834) pH, Venous-POC (test 7.484 7.320-7.420 H : TESTE D AT [facility] code = 1842) [address] [place], [address] PCO2, Venous-POC (test 39.4 See_Comment L If [...] mated message] code = 1844) The system [employer] h generated this result transmit levi reference range : 25.0 - 40.0 mm Hg. The reference r alba was not used to interpret this result as normal/abnormal . SO2, Venous-POC (test 87.0 % 40.0-70.0 H code = 1845) HCO3, Venous-POC (test 29.3 meq/L 21.0-29.0 H code = 1846) BE, Venous-POC (test 6.0 meq/L -2.0-3.0 H : code = 1847) [employer] Machine Operator/Techni kelle ID = [id number] for JOSE ARMANDO CELIS Lab Interpretation Abnormal (test code = 36841-2) [facility]-BLOOD GASES, [id number] 22:42:59 Test Item Value Reference Range Interpretation Comments TEMP, CELSIUS-POC 101.3 (BEAKER) (test code = 1834) FIO2-POC (BEAKER) 28 (test code = 1835) PH, VENOUS-POC 7.484 7.320-7.420 H : TESTED AT [facility] [address] (BEAKER) (test code [address] [place], = 1842) [address] PCO2, VENOUS-POC 39.4 mm Hg 41.0-51.0 L [...] BASE EXCESS, 6.0 meq/L -2.0-3.0 H : Paper Products Machine Operator/Tech shitalian ID VENOUS-POC (BEAKER) = [id number] for MARFIL, (test code = 1847) JOSE ARMANDO LACTIC ACID, [id number] 22:23:56 Test Item Value Reference Range Interpretation Comments LACTATE BLOOD VENOUS 0.92 mmol/L 0.50-2.20 Specime n moderately (2) (BEAKER) (test hemolyzed code = 2872) [employer] Machine Operator ID - BSPOCT-GLUCOSE [id number] 21:35:23 Test Item Value Reference Range Interpretation Comments POC-GLUCOSE METER 125 mg/dL 70-110 H : TESTED A T [facility] 67[address] [facility] (test code = [facility], 153) [address]: Paper Products Machine Operator/Techni kelle ID = [id number] for UG ORJI, GHADA POCT-GLUCOSE [id number] 17:05:43 Test Item Value Reference Range Interpretation Comments POC-GLUCOSE METER 224 mg/dL 70-110 H : TESTED A T [facility] 6720 ([facility] (test code = [facility], 1538) [address]: Paper Products Machine Operator/Techni kelle ID = [id number] for Re yes, Maranda POCT-GLUCOSE [id number] 16:33:44 Test Item Value Reference Range Interpretation Comments POC-GLUCOSE METER 108 mg/dL 70-110 : TESTED A T [facility] 6720 ([facility] (test code = [facility] [place] [facility], 1538) [address]: Paper Products Machine Operator/Techni kelle ID = [id number] for Ag Herminia ball POCT-GLUCOSE [id number] 07:38:21 Test Item Value Reference Range Interpretation Comments POC-GLUCOSE METER 185 mg/dL 70-110 H : TESTED A T [facility] 6720 (BEAKER) (test code = [facility], 1538) [address]: Paper Products Machine Operator/Techni kelle ID = [id number] for Re yes, Maranda BASIC METABOLIC [id number] 07:20:13 Test Item Value Reference Range Interpretation [...] S NOT APPLICABLE FOR DIALYSIS PATIEN TS. Paper Products Machine Operator ID - HIEN [id number] 06:54:10 Test Item Value Reference Range Interpretation Comments PHOSPHORUS (BEAKER) (test code = 4.6 mg/dL 2.3-4.7 604) [employer] Machine Operator ID - HIEN [id number] 06:54:09 Test Item Value Reference Range Interpretation Comments MAGNESIUM (BEAKER) (test code = 2.2 mg/dL 1.6-2.6 627) Paper Products Machine Operator ID - HIEN [facility] W/PLT COUNT & AUTO [id number] 04:53:46 Test Item Value Reference Range Interpretation [...] PERCENT (BEAKER) (test code = 2801) POCT-GLUCOSE [id number] 21:34:14 Test Item Value Reference Range Interpretation Comments POC-GLUCOSE METER 260 mg/dL 70-110 H : TESTED A T [facility] 6720 (BEAKER) (test code = [facility], 1538) [address]: Paper Products Machine Operator/Techni kelle ID = [id number] for GHADA BECK POCT-GLUCOSE [id number] 16:27:30 Test Item Value Reference Range Interpretation Comments POC-GLUCOSE METER 170 mg/dL 70-110 H : TESTED A T [facility] 6720 (BEAKER) (test code = [facility], 1538) [address]: Paper Products Machine Operator/Techni kelle ID = [id number] for Soledad Rivera 2D Echo W/Doppler(CW/PW/Color)2021-06-09 16:08:58Ejection FractionSLEH ECHO HEARTLAB [facility]2D Echo W/Doppler(CW/PW/Color)2021-06-09 16:08:58Ejection FractionSLEH ECHO HEARTLAB [facility]2D Echo W/Doppler(CW/PW/Color) 2021-06-09 16:08:58Ejection FractionSLEH ECHO HEARTLAB [facility]2D Echo W/Doppler(CW/PW/Color)2021-06-09 16:08:58Ejection FractionSLEH ECHO HEARTLAB [facility]2D Echo W/Doppler(CW/PW/Color)2021-06-09 16:08:58Ejection FractionSLEH ECHO HEARTLAB [facility]2D Echo W/Doppler(CW/PW/Color) 2021-06-09 16:08:58Ejection FractionSLEH ECHO HEARTLAB [facility]2D Echo W/Doppler(CW/PW/Color)2021-06-09 16:08:58Ejection FractionSLEH ECHO HEARTLAB [facility]2D Echo W/Doppler(CW/PW/Color)2021-06-09 16:08:58Ejection FractionSLEH ECHO HEARTLAB [facility]2D Echo W/Doppler(CW/PW/Color) 2021-06-09 16:08:58Ejection FractionSLEH ECHO HEARTLAB [facility]2D Echo W/Doppler(CW/PW/Color)2021-06-09 16:08:58Ejection FractionSLEH ECHO HEARTLAB [facility]2D Echo W/Doppler(CW/PW/Color)2021-06-09 16:08:58Ejection FractionSLEH ECHO HEARTLAB [facility]2D Echo W/Doppler(CW/PW/Color) 2021-06-09 16:08:58Ejection FractionSLEH ECHO HEARTLAB MKALIDA [facility]2D Echo W/Doppler(CW/PW/Color)2021-06-09 16:08:58Ejection FractionSLEH ECHO HEARTLAB SHANDRA [facility]2D Echo W/Doppler(CW/PW/Color)2021-06-09 16:08:58Ejection FractionSLEH ECHO HEARTLAB SHANDRA [facility]2D Echo W/Doppler(CW/PW/Color) 2021-06-09 16:08:58Ejection FractionSLEH ECHO HEARTLAB SHANDRA [facility]2D Echo W/Doppler(CW/PW/Color)2021-06-09 16:08:58Ejection FractionSLEH ECHO HEARTLAB SHANDRA [facility] Transesophageal [id number] 16:06:54Ejection FractionSLEH ECHO HEARTLAB [facility]DRA [facility] [id number] 16:06:54Ejection FractionSLEH ECHO HEARTLAB [facility]DR[facility] [id number] 16:06:54Ejection FractionSLEH ECHO HEARTLAB [facility]DR[facility] [id number] 16:06:54Ejection FractionSLEH ECHO HEARTLAB [facility]DR[facility] [id number] 16:06:54Ejection FractionSLEH ECHO HEARTLAB [facility]ANDRA [facility] [id number] 16:06:54Ejection FractionSLEH ECHO HEARTLAB [facility]ANDRA [facility] [id number] 16:06:54Ejection FractionSLEH ECHO HEARTLAB [facility]ANDRA [facility] [id number] 16:06:54Ejection FractionSLEH ECHO HEARTLAB [facility]ANDR[facility] [id number] 16:06:54Ejection FractionSLEH ECHO HEARTLAB MKCKESSON [facility] [id number] 16:06:54Ejection FractionSLEH ECHO HEARTLAB MKCKESSON [facility] [id number] 16:06:54Ejection FractionSLEH ECHO HEARTLAB MKCKESSON [facility] [id number] 16:06:54Ejection FractionSLEH ECHO HEARTLAB MKCKESSON [facility] [id number] 16:06:54Ejection FractionSLEH ECHO HEARTLAB MKCKESSON [facility] [id number] 16:06:54Ejection FractionSLEH ECHO HEARTLAB MKCKESSON [facility] [id number] 16:06:54Ejection FractionSLEH ECHO HEARTLAB MKCKESSON [facility] [id number] 16:06:54Ejection FractionSLEH ECHO HEARTLAB MKCKESSON [facility] [id number] 06:23:12 Test Item Value Reference Range Interpretation Comments POC-GLUCOSE METER 250 mg/dL 70-110 H : TESTED A T [facility] 6720 (BEAKER) (test code = YUDY [place] [facility], 1538) [address]: Paper Products Machine Operator/Techni kelle ID = [id number] for Tavia Bruce BASIC METABOLIC [id number] 04:37:07 Test Item Value Reference Range Interpretation [...] S NOT APPLICABLE FOR DIALYSIS PATIEN TS. Paper [employer] Machine Operator ID - RAKAN [id number] 04:30:49 Test Item Value Reference Range Interpretation Comments PHOSPHORUS (BEAKER) (test code = 3.8 mg/dL 2.3-4.7 604) Paper Products Machine Operator ID - RAKAN [id number] 04:30:48 Test Item Value Reference Range Interpretation Comments MAGNESIUM (BEAKER) (test code = 2.0 mg/dL 1.6-2.6 627) Paper Products Machine Operator ID - RAKAN WCBC W/PLT COUNT & AUTO [id number] 03:53:11 Test Item Value Reference Range Interpretation [...] (BEAKER) (test code = 2801) Hepatitis panel, [id number] 23:49:54 Test Item Value Reference Range Interpretation Comments Hep A IgM (test code = Nonreactive Nonreactive 87215-2) Hep B C IgM (test code = Nonreactive Nonreactive 51306-4) Hepatitis C Ab (test code = Nonreactive Nonreactive 73168-4) Hepatitis B surface antigen Nonreactive Nonreactive (test code = 5195-3) BRANDI (test code = BRANDI) Paper Products Machine Operator ID - DB Lab Interpretation (test Normal code = 44725-7) [id number] 23:49:54 Test Item Value Reference Range Interpretation Comments Hep A IgM (test code = Nonreactive Nonreactive 56954-4) Hep B C IgM (test code = Nonreactive Nonreactive 25776-5) Hepatitis C Ab (test code = Nonreactive Nonreactive 17596-3) Hepatitis B surface antigen Nonreactive Nonreactive (test code = 5195-3) BRANDI (test code = BRANDI) Paper Products Machine Operator ID - DB Lab Interpretation (test Normal code = 78342-3) [facility] [id number] 23:49:54 Test Item Value Reference Range Interpretation Comments Hep A IgM (test code = Nonreactive Nonreactive 27980-7) Hep B C IgM (test code = Nonreactive Nonreactive 21605-8) Hepatitis C Ab (test code = Nonreactive Nonreactive 34793-2) Hepatitis B surface antigen Nonreactive Nonreactive (test code = 5195-3) BRANDI (test code = BRANDI) Paper Products Machine Operator ID - DB Lab Interpretation (test Normal code = 72493-7) [facility] panel, [id number] 23:49:54 Test Item Value Reference Range Interpretation Comments Hep A IgM (test code = Nonreactive Nonreactive 15627-2) Hep B C IgM (test code = Nonreactive Nonreactive 55313-1) Hepatitis C Ab (test code = Nonreactive Nonreactive 86738-7) Hepatitis B surface antigen Nonreactive Nonreactive (test code = 5195-3) BRANDI (test code = BRANDI) Paper Products Machine Operator ID - DB Lab Interpretation (test Normal code = 75764-2) [facility] panel, [id number] 23:49:54 Test Item Value Reference Range Interpretation Comments Hep A IgM (test code = Nonreactive Nonreactive 52758-1) Hep B C IgM (test code = Nonreactive Nonreactive 09631-9) Hepatitis C Ab (test code = Nonreactive Nonreactive 34971-7) Hepatitis B surface antigen Nonreactive Nonreactive (test code = 5195-3) BRANDI (test code = BRANDI) Paper Products Machine Operator ID - DB Lab Interpretation (test Normal code = 02318-7) [facility] panel, [id number] 23:49:54 Test Item Value Reference Range Interpretation Comments Hep A IgM (test code = Nonreactive Nonreactive 21446-9) Hep B C IgM (test code = Nonreactive Nonreactive 06876-5) Hepatitis C Ab (test code = Nonreactive Nonreactive 87517-1) Hepatitis B surface antigen Nonreactive Nonreactive (test code = 5195-3) BRANDI (test code = BRANDI) Paper Products Machine Operator ID - DB Lab Interpretation (test Normal code = 23720-0) [facility] panel, [id number] 23:49:54 Test Item Value Reference Range Interpretation Comments Hep A IgM (test code = Nonreactive Nonreactive 63801-4) Hep B C IgM (test code = Nonreactive Nonreactive 33134-5) Hepatitis C Ab (test code = Nonreactive Nonreactive 16710-1) Hepatitis B surface antigen Nonreactive Nonreactive (test code = 5195-3) BARNDI (test code = BRANDI) Paper Products Machine Operator ID - DB Lab Interpretation (test Normal code = 84283-2) [facility] panel, [id number] 23:49:54 Test Item Value Reference Range Interpretation Comments Hep A IgM (test code = Nonreactive Nonreactive 06146-2) Hep B C IgM (test code = Nonreactive Nonreactive 29413-6) Hepatitis C Ab (test code = Nonreactive Nonreactive 78535-9) Hepatitis B surface antigen Nonreactive Nonreactive (test code = 5195-3) BRANDI (test code = BRANDI) Paper Products Machine Operator ID - DB Lab Interpretation (test Normal code = 99310-6) [facility] panel, [id number] 23:49:54 Test Item Value Reference Range Interpretation Comments Hep A IgM (test code = Nonreactive Nonreactive 85062-9) Hep B C IgM (test code = Nonreactive Nonreactive 62843-5) Hepatitis C Ab (test code = Nonreactive Nonreactive 34396-4) Hepatitis B surface antigen Nonreactive Nonreactive (test code = 5195-3) BRANDI (test code = BRANDI) Paper Products Machine Operator ID - DB Lab Interpretation (test Normal code = 05344-4) [facility] panel, [id number] 23:49:54 Test Item Value Reference Range Interpretation Comments Hep A IgM (test code = Nonreactive Nonreactive 47356-9) Hep B C IgM (test code = Nonreactive Nonreactive 36685-8) Hepatitis C Ab (test code = Nonreactive Nonreactive 16146-2) Hepatitis B surface antigen Nonreactive Nonreactive (test code = 5195-3) BRANDI (test code = BRANDI) Paper Products Machine Operator ID - DB Lab Interpretation (test Normal code = 89070-3) [facility] panel, [id number] 23:49:54 Test Item Value Reference Range Interpretation Comments Hep A IgM (test code = Nonreactive Nonreactive 32597-1) Hep B C IgM (test code = Nonreactive Nonreactive 41827-1) Hepatitis C Ab (test code = Nonreactive Nonreactive 67533-2) Hepatitis B surface antigen Nonreactive Nonreactive (test code = 5195-3) BRANDI (test code = BRANDI) Paper Products Machine Operator ID - DB Lab Interpretation (test Normal code = 61388-2) [facility] panel, [id number] 23:49:54 Test Item Value Reference Range Interpretation Comments Hep A IgM (test code = Nonreactive Nonreactive 63391-3) Hep B C IgM (test code = Nonreactive Nonreactive 95567-0) Hepatitis C Ab (test code = Nonreactive Nonreactive 02450-5) Hepatitis B surface antigen Nonreactive Nonreactive (test code = 5195-3) BRANDI (test code = BRANDI) Paper Products Machine Operator ID - DB Lab Interpretation (test Normal code = 56722-0) [facility] panel, [id number] 23:49:54 Test Item Value Reference Range Interpretation Comments Hep A IgM (test code = Nonreactive Nonreactive 76452-4) Hep B C IgM (test code = Nonreactive Nonreactive 40637-4) Hepatitis C Ab (test code = Nonreactive Nonreactive 24704-2) Hepatitis B surface antigen Nonreactive Nonreactive (test code = 5195-3) BRANDI (test code = BRANDI) Paper Products Machine Operator ID - DB Lab Interpretation (test Normal code = 75589-3) [facility] panel, [id number] 23:49:54 Test Item Value Reference Range Interpretation Comments Hep A IgM (test code = Nonreactive Nonreactive 42504-5) Hep B C IgM (test code = Nonreactive Nonreactive 99377-3) Hepatitis C Ab (test code = Nonreactive Nonreactive 13334-8) Hepatitis B surface antigen Nonreactive Nonreactive (test code = 5195-3) BRANDI (test code = BRANDI) Paper Products Machine Operator ID - DB Lab Interpretation (test Normal code = 89998-1) [facility] panel, [id number] 23:49:54 Test Item Value Reference Range Interpretation Comments Hep A IgM (test code = Nonreactive Nonreactive 13503-2) Hep B C IgM (test code = Nonreactive Nonreactive 01530-7) Hepatitis C Ab (test code = Nonreactive Nonreactive 09096-6) Hepatitis B surface antigen Nonreactive Nonreactive (test code = 5195-3) BRANDI (test code = BRANDI) Paper Products Machine Operator ID - DB Lab Interpretation (test Normal code = 67037-3) [facility] [id number] 23:49:54 Test Item Value Reference Range Interpretation Comments Hep A IgM (test code = Nonreactive Nonreactive 99568-0) Hep B C IgM (test code = Nonreactive Nonreactive 43031-9) Hepatitis C Ab (test code = Nonreactive Nonreactive 83761-2) Hepatitis B surface antigen Nonreactive Nonreactive (test code = 5195-3) BRANDI (test code = BRANDI) Paper Products Machine Operator ID - DB Lab Interpretation (test Normal code = 30366-4) [facility] PANEL, [id number] 23:49:54 Test Item Value Reference Range Interpretation Comments HEPATITIS A IGM ANTIBODY (BEAKER) Nonreactive Nonreactive (test code = 498) HEPATITIS B CORE IGM ANTIBODY Nonreactive Nonreactive (BEAKER) (test code = 645) HEPATITIS C ANTIBODY (BEAKER) Nonreactive Nonreactive (test code = 367) HEPATITIS B SURFACE ANTIGEN (2) Nonreactive Nonreactive (BEAKER) (test code = 2585) Paper Products Machine Operator ID - DBPOCT-GLUCOSE [id number] 21:22:04 Test Item Value Reference Range Interpretation Comments POC-GLUCOSE METER 193 mg/dL 70-110 H : [facility] (BEAKER[facility] (test code = [place], 1538) [address]: Paper Products Machine Operator/Techni kelle ID = [id number] for Tavia Bruce Hepatitis B surface [id number] 13:29:36 Test Item Value Reference Range Interpretation Comments Hepatitis B surface Nonreactive Nonreactive antigen (test code = 5195-3) BRANDI (test code = BRANDI) Specimen is considered negative for HBsAg. Lab Interpretation (test Normal code = 65636-0) [facility] [id number] 13:29:36 Test Item Value Reference Range Interpretation Comments Hepatitis B surface Nonreactive Nonreactive antigen (test code = 5195-3) BRANDI (test code = BRANDI) Specimen is considered negative for HBsAg. Lab Interpretation (test Normal code = 89598-7) [facility] [id number] 13:29:36 Test Item Value Reference Range Interpretation Comments Hepatitis B surface Nonreactive Nonreactive antigen (test code = 5195-3) BRANDI (test code = BRANDI) Specimen is considered negative for HBsAg. Lab Interpretation (test Normal code = 64180-0) [facility] [id number] 13:29:36 Test Item Value Reference Range Interpretation Comments Hepatitis B surface Nonreactive Nonreactive antigen (test code = 5195-3) BRANDI (test code = BRANDI) Specimen is considered negative for HBsAg. Lab Interpretation (test Normal code = 54214-5) [facility] [id number] 13:29:36 Test Item Value Reference Range Interpretation Comments Hepatitis B surface Nonreactive Nonreactive antigen (test code = 5195-3) BRANDI (test code = BRANDI) Specimen is considered negative for HBsAg. Lab Interpretation (test Normal code = 00207-9) [facility] B surface [id number] 13:29:36 Test Item Value Reference Range Interpretation Comments Hepatitis B surface Nonreactive Nonreactive antigen (test code = 5195-3) BRANDI (test code = BRANDI) Specimen is considered negative for HBsAg. Lab Interpretation (test Normal code = 86135-4) [facility] [id number] 13:29:36 Test Item Value Reference Range Interpretation Comments Hepatitis B surface Nonreactive Nonreactive antigen (test code = 5195-3) BRANDI (test code = BRANDI) Specimen is considered negative for HBsAg. Lab Interpretation (test Normal code = 47499-3) [facility] [id number] 13:29:36 Test Item Value Reference Range Interpretation Comments Hepatitis B surface Nonreactive Nonreactive antigen (test code = 5195-3) BRANDI (test code = BRANDI) Specimen is considered negative for HBsAg. Lab Interpretation (test Normal code = 15374-0) [facility] [id number] 13:29:36 Test Item Value Reference Range Interpretation Comments Hepatitis B surface Nonreactive Nonreactive antigen (test code = 5195-3) BRANDI (test code = BRANDI) Specimen is considered negative for HBsAg. Lab Interpretation (test Normal code = 00124-6) [facility] [id number] 13:29:36 Test Item Value Reference Range Interpretation Comments Hepatitis B surface Nonreactive Nonreactive antigen (test code = 5195-3) BRANDI (test code = BRANDI) Specimen is considered negative for HBsAg. Lab Interpretation (test Normal code = 41194-7) [facility] [id number] 13:29:36 Test Item Value Reference Range Interpretation Comments Hepatitis B surface Nonreactive Nonreactive antigen (test code = 5195-3) BRANDI (test code = BRANDI) Specimen is considered negative for HBsAg. Lab Interpretation (test Normal code = 71591-3) [facility] surface [id number] 13:29:36 Test Item Value Reference Range Interpretation Comments Hepatitis B surface Nonreactive Nonreactive antigen (test code = 5195-3) BRANDI (test code = BRANDI) Specimen is considered negative for HBsAg. Lab Interpretation (test Normal code = 04207-9) [facility] B surface [id number] 13:29:36 Test Item Value Reference Range Interpretation Comments Hepatitis B surface Nonreactive Nonreactive antigen (test code = 5195-3) BRANDI (test code = BRANDI) Specimen is considered negative for HBsAg. Lab Interpretation (test Normal code = 66758-4) [facility] B surface [id number] 13:29:36 Test Item Value Reference Range Interpretation Comments Hepatitis B surface Nonreactive Nonreactive antigen (test code = 5195-3) BRANDI (test code = BRANDI) Specimen is considered negative for HBsAg. Lab Interpretation (test Normal code = 55083-1) [facility] [id number] 13:29:36 Test Item Value Reference Range Interpretation Comments Hepatitis B surface Nonreactive Nonreactive antigen (test code = 5195-3) BRANDI (test code = BRANDI) Specimen is considered negative for HBsAg. Lab Interpretation (test Normal code = 82195-8) [facility] [id number] 13:29:36 Test Item Value Reference Range Interpretation Comments Hepatitis B surface Nonreactive Nonreactive antigen (test code = 5195-3) BRANDI (test code = BRANDI) Specimen is considered negative for HBsAg. Lab Interpretation (test Normal code = 12342-4) [facility] [id number] 13:29:36 Test Item Value Reference Range Interpretation Comments HEPATITIS B SURFACE ANTIGEN (2) Nonreactive Nonreactive (BEAKER) (test code = 2585) Specimen is considered negative for HBsAg.U/S, ABDOMINAL, [id number] 13:10:00Abdomen limited area? Add comment if clarification is needed.- >LiverReason for exam:->hepatic nodularity reported [facility] : 1955 Sex: [...] Webb MDReport Verified Date/Time: 06/08/2021 13:10:45 SARS-COV2/RT-PCR ([facility])2021-06-08 12:35:29 Test Item Value Reference Range Interpretation Comments SARS-COV2/RT-PCR (test Negative Not Detected, Negative, code = 9822137) See external report for linked test SARS-COV-2 PERFORMING LAB [facility] (test code = 6668411) Negative result for this test determines that [...] of the Act.Fact Sheet for Healthcare Prov iders:https://www.TrustHop/sites/default/files/product/documents/Fact_Sheet_HC _Koiiezxey_Wbxq_IWTI-HqY-7.pdfFact Sheet for Healthcare Patients:https://www.TrustHop/sites/default/files/product/docume nts/Ggpk_Ydnnt_Gnatvagm_Ycyn_GACD-YpK-9.pdfPerforming Laboratory:[facility], [place] [address]Hiauico D, 25-Hydroxy 2021-06-08 11:10:06 Test Item Value Reference Range Interpretation Comments Vitamin D 25-Hydroxy 16.7 ng/mL 6.6-49.9 (test code = 2764) BRANDI (test code = BRANDI) Effective 01/12/2017: Reference Range ChangeNew: 6.6-49.9 ng/mL Previous: 13.0-47.8 ng/mL Recommended Vitamin D Target Range: 30.0-40.0 ng/mLOperator ID - DB Lab Interpretation (test Normal code = 49161-9) [facility], 96-[id number] 11:10:06 Test Item Value Reference Range Interpretation Comments Vitamin D 25-Hydroxy 16.7 ng/mL 6.6-49.9 (test code = 2764) BRANDI (test code = BRANDI) Effective 01/12/2017: Reference Range ChangeNew: 6.6-49.9 ng/mL Previous: 13.0-47.8 ng/mL Recommended Vitamin D Target Range: 30.0-40.0 ng/mLOperator ID - DB Lab Interpretation (test Normal code = 71682-8) [facility], 66-Prrpqch9365-03-07 11:10:06 Test Item Value Reference Range Interpretation Comments Vitamin D 25-Hydroxy 16.7 ng/mL 6.6-49.9 (test code = 2764) BRANDI (test code = BRANDI) Effective 01/12/2017: Reference Range ChangeNew: 6.6-49.9 ng/mL Previous: 13.0-47.8 ng/mL Recommended Vitamin D Target Range: 30.0-40.0 ng/mLOperator ID - DB Lab Interpretation (test Normal code = 31554-7) [facility], 74-[id number] 11:10:06 Test Item Value Reference Range Interpretation Comments Vitamin D 25-Hydroxy 16.7 ng/mL 6.6-49.9 (test code = 2764) BRANDI (test code = BRANDI) Effective 01/12/2017: Reference Range ChangeNew: 6.6-49.9 ng/mL Previous: 13.0-47.8 ng/mL Recommended Vitamin D Target Range: 30.0-40.0 ng/mLOperator ID - DB Lab Interpretation (test Normal code = 58935-6) [facility], 11-Yirnlth5512-76-07 11:10:06 Test Item Value Reference Range Interpretation Comments Vitamin D 25-Hydroxy 16.7 ng/mL 6.6-49.9 (test code = 2764) BRANDI (test code = BRANDI) Effective 01/12/2017: Reference Range ChangeNew: 6.6-49.9 ng/mL Previous: 13.0-47.8 ng/mL Recommended Vitamin D Target Range: 30.0-40.0 ng/mLOperator ID - DB Lab Interpretation (test Normal code = 75125-3) [facility], 71-[id number] 11:10:06 Test Item Value Reference Range Interpretation Comments Vitamin D 25-Hydroxy 16.7 ng/mL 6.6-49.9 (test code = 2764) BRANDI (test code = BRANDI) Effective 01/12/2017: Reference Range ChangeNew: 6.6-49.9 ng/mL Previous: 13.0-47.8 ng/mL Recommended Vitamin D Target Range: 30.0-40.0 ng/mLOperator ID - DB Lab Interpretation (test Normal code = 34040-1) [facility], 21-Ocbwqyc6687-81-07 11:10:06 Test Item Value Reference Range Interpretation Comments Vitamin D 25-Hydroxy 16.7 ng/mL 6.6-49.9 (test code = 2764) BRANDI (test code = BRANDI) Effective 01/12/2017: Reference Range ChangeNew: 6.6-49.9 ng/mL Previous: 13.0-47.8 ng/mL Recommended Vitamin D Target Range: 30.0-40.0 ng/mLOperator ID - DB Lab Interpretation (test Normal code = 57575-0) [facility], 49-Rzypqlo3839-07-07 11:10:06 Test Item Value Reference Range Interpretation Comments Vitamin D 25-Hydroxy 16.7 ng/mL 6.6-49.9 (test code = 2764) BRANDI (test code = BRANDI) Effective 01/12/2017: Reference Range ChangeNew: 6.6-49.9 ng/mL Previous: 13.0-47.8 ng/mL Recommended Vitamin D Target Range: 30.0-40.0 ng/mLOperator ID - DB Lab Interpretation (test Normal code = 96571-5) [facility], 27-Xydhekw5726-57-07 11:10:06 Test Item Value Reference Range Interpretation Comments Vitamin D 25-Hydroxy 16.7 ng/mL 6.6-49.9 (test code = 2764) BRANDI (test code = BRANDI) Effective 01/12/2017: Reference Range ChangeNew: 6.6-49.9 ng/mL Previous: 13.0-47.8 ng/mL Recommended Vitamin D Target Range: 30.0-40.0 ng/mLOperator ID - DB Lab Interpretation (test Normal code = 60314-1) [facility], 01-Vyveold4383-49-07 11:10:06 Test Item Value Reference Range Interpretation Comments Vitamin D 25-Hydroxy 16.7 ng/mL 6.6-49.9 (test code = 2764) BRANDI (test code = BRANDI) Effective 01/12/2017: Reference Range ChangeNew: 6.6-49.9 ng/mL Previous: 13.0-47.8 ng/mL Recommended Vitamin D Target Range: 30.0-40.0 ng/mLOperator ID - DB Lab Interpretation (test Normal code = 61593-2) [facility], 64-Ezrdbfg0884-72-07 11:10:06 Test Item Value Reference Range Interpretation Comments Vitamin D 25-Hydroxy 16.7 ng/mL 6.6-49.9 (test code = 2764) BRANDI (test code = BRANDI) Effective 01/12/2017: Reference Range ChangeNew: 6.6-49.9 ng/mL Previous: 13.0-47.8 ng/mL Recommended Vitamin D Target Range: 30.0-40.0 ng/mLOperator ID - DB Lab Interpretation (test Normal code = 98201-8) [facility], 33-Gufndce9636-39-07 11:10:06 Test Item Value Reference Range Interpretation Comments Vitamin D 25-Hydroxy 16.7 ng/mL 6.6-49.9 (test code = 2764) BRANDI (test code = BRANDI) Effective 01/12/2017: Reference Range ChangeNew: 6.6-49.9 ng/mL Previous: 13.0-47.8 ng/mL Recommended Vitamin D Target Range: 30.0-40.0 ng/mLOperator ID - DB Lab Interpretation (test Normal code = 53132-8) [facility], 15-Cqqjenk4859-04-07 11:10:06 Test Item Value Reference Range Interpretation Comments Vitamin D 25-Hydroxy 16.7 ng/mL 6.6-49.9 (test code = 1989-3) BRANDI (test code = BRANDI) Effective 01/12/2017: Reference Range ChangeNew: 6.6-49.9 ng/mL Previous: 13.0-47.8 ng/mL Recommended Vitamin D Target Range: 30.0-40.0 ng/mLOperator ID - DB Lab Interpretation (test Normal code = 87436-7) [facility], 83-Tselggs1615-81-07 11:10:06 Test Item Value Reference Range Interpretation Comments Vitamin D 25-Hydroxy 16.7 ng/mL 6.6-49.9 (test code = 2764) BRANDI (test code = BRANDI) Effective 01/12/2017: Reference Range ChangeNew: 6.6-49.9 ng/mL Previous: 13.0-47.8 ng/mL Recommended Vitamin D Target Range: 30.0-40.0 ng/mLOperator ID - DB Lab Interpretation (test Normal code = 60783-2) [facility], 51-Kcwiyzd7903-59-07 11:10:06 Test Item Value Reference Range Interpretation Comments Vitamin D 25-Hydroxy 16.7 ng/mL 6.6-49.9 (test code = 2764) BRANDI (test code = BRANDI) Effective 01/12/2017: Reference Range ChangeNew: 6.6-49.9 ng/mL Previous: 13.0-47.8 ng/mL Recommended Vitamin D Target Range: 30.0-40.0 ng/mLOperator ID - DB Lab Interpretation (test Normal code = 01845-4) [facility], 33-Jkqptmc5260-54-07 11:10:06 Test Item Value Reference Range Interpretation Comments Vitamin D 25-Hydroxy 16.7 ng/mL 6.6-49.9 (test code = 1989-3) BRANDI (test code = BRANDI) Effective 01/12/2017: Reference Range ChangeNew: 6.6-49.9 ng/mL Previous: 13.0-47.8 ng/mL Recommended Vitamin D Target Range: 30.0-40.0 ng/mLOperator ID - DB Lab Interpretation (test Normal code = 59612-0) [facility], 06-[id number] 11:10:06 Test Item Value Reference Range Interpretation Comments VITAMIN D 25-OH (BEAKER) (test 16.7 ng/mL 6.6-49.9 code = 2764) Effective 01/12/2017: Reference Range ChangeNew: 6.6-49.9 ng/mL Previous: 13.0- 47.8 ng/mLRecommendedVitamin D Target Range: 30.0-40.0 ng/mLOperator ID - DBPTH, [id number] 11:05:08 Test Item Value Reference Range Interpretation Comments PTH (test code = 2731-8) 449.7 pg/mL 8.5-72.5 H BRANDI (test code = BRANDI) [employer] Machine Operator ID - ADMIN Lab Interpretation (test Abnormal code = 72120-5) [facility], [id number] 11:05:08 Test Item Value Reference Range Interpretation Comments PTH (test code = 2731-8) 449.7 pg/mL 8.5-72.5 H BRANDI (test code = BRANDI) [employer] Machine Operator ID - ADMIN Lab Interpretation (test Abnormal code = 93380-6) [facility], [id number] 11:05:08 Test Item Value Reference Range Interpretation Comments PTH (test code = 2731-8) 449.7 pg/mL 8.5-72.5 H BRANDI (test code = BRANDI) [employer] Machine Operator ID - ADMIN Lab Interpretation (test Abnormal code = 57116-1) [facility], [id number] 11:05:08 Test Item Value Reference Range Interpretation Comments PTH (test code = 2731-8) 449.7 pg/mL 8.5-72.5 H BRANDI (test code = BRANDI) [employer] Machine Operator ID - ADMIN Lab Interpretation (test Abnormal code = 50837-7) [facility], [id number] 11:05:08 Test Item Value Reference Range Interpretation Comments PTH (test code = 2731-8) 449.7 pg/mL 8.5-72.5 H BRANDI (test code = BRANDI) [employer] Machine Operator ID - ADMIN Lab Interpretation (test Abnormal code = 37890-0) [facility], [id number] 11:05:08 Test Item Value Reference Range Interpretation Comments PTH (test code = 2731-8) 449.7 pg/mL 8.5-72.5 H BRANDI (test code = BRANDI) [employer] Machine Operator ID - ADMIN Lab Interpretation (test Abnormal code = 93479-6) [facility], [id number] 11:05:08 Test Item Value Reference Range Interpretation Comments PTH (test code = 2731-8) 449.7 pg/mL 8.5-72.5 H BRANDI (test code = BRANDI) [employer] Machine Operator ID - ADMIN Lab Interpretation (test Abnormal code = 56097-9) [facility], [id number] 11:05:08 Test Item Value Reference Range Interpretation Comments PTH (test code = 2731-8) 449.7 pg/mL 8.5-72.5 H BRANDI (test code = BRANDI) [employer] Machine Operator ID - ADMIN Lab Interpretation (test Abnormal code = 34838-0) [facility], [id number] 11:05:08 Test Item Value Reference Range Interpretation Comments PTH (test code = 2731-8) 449.7 pg/mL 8.5-72.5 H BRANDI (test code = BRANDI) [employer] Machine Operator ID - ADMIN Lab Interpretation (test Abnormal code = 39211-9) [facility], [id number] 11:05:08 Test Item Value Reference Range Interpretation Comments PTH (test code = 2731-8) 449.7 pg/mL 8.5-72.5 H BRANDI (test code = BRANDI) [employer] Machine Operator ID - ADMIN Lab Interpretation (test Abnormal code = 14595-7) [facility], [id number] 11:05:08 Test Item Value Reference Range Interpretation Comments PTH (test code = 2731-8) 449.7 pg/mL 8.5-72.5 H BRANDI (test code = BRANDI) [employer] Machine Operator ID - ADMIN Lab Interpretation (test Abnormal code = 05834-6) [facility], [id number] 11:05:08 Test Item Value Reference Range Interpretation Comments PTH (test code = 2731-8) 449.7 pg/mL 8.5-72.5 H BRANDI (test code = BRANDI) [employer] Machine Operator ID - ADMIN Lab Interpretation (test Abnormal code = 79105-7) [facility], [id number] 11:05:08 Test Item Value Reference Range Interpretation Comments PTH (test code = 2731-8) 449.7 pg/mL 8.5-72.5 H BRANDI (test code = BRANDI) [employer] Machine Operator ID - ADMIN Lab Interpretation (test Abnormal code = 78558-4) [facility], [id number] 11:05:08 Test Item Value Reference Range Interpretation Comments PTH (test code = 2731-8) 449.7 pg/mL 8.5-72.5 H BRANDI (test code = BRANDI) [employer] Machine Operator ID - ADMIN Lab Interpretation (test Abnormal code = 73017-5) [facility], [id number] 11:05:08 Test Item Value Reference Range Interpretation Comments PTH (test code = 2731-8) 449.7 pg/mL 8.5-72.5 H BRANDI (test code = BRANDI) [employer] Machine Operator ID - ADMIN Lab Interpretation (test Abnormal code = 93213-4) [facility], [id number] 11:05:08 Test Item Value Reference Range Interpretation Comments PTH (test code = 2731-8) 449.7 pg/mL 8.5-72.5 H BRANDI (test code = BRANDI) [employer] Machine Operator ID - ADMIN Lab Interpretation (test Abnormal code = 58306-4) [facility] [id number] 11:05:08 Test Item Value Reference Range Interpretation Comments PARATHYROID HORMONE INTACT 449.7 pg/mL 8.5-72.5 H (BEAKER) (test code = 577) [employer] Machine Operator ID - [id number] 09:50:35 Test Item Value Reference Range Interpretation Comments FERRITIN (BEAKER) (test code = 926.02 ng/mL 5.00-275.00 H 361) [employer] Machine Operator ID - ADMINIRON, TIBC, % SAT. (WITHOUT FERRITIN)2021-06-08 09:30:51 Test Item Value Reference Range Interpretation Comments IRON (BEAKER) (test code = 547) 110.0 ug/dL 40.0-160.0 TOTAL IRON BINDING CAPACITY 135 ug/dL 250-450 L (BEAKER) (test code = 769) IRON % SATURATION (2) (BEAKER) 81 % 20-55 H (test code = 2590) [employer] Machine Operator ID - ADMINPOCT-GLUCOSE [id number] 07:11:26 Test Item Value Reference Range Interpretation Comments POC-GLUCOSE METER 199 mg/dL 70-110 H : TESTED A T [facility] [address] (BEAKER) (test code = [place], 1538) [address]: [employer] Machine Operator/Techni kelle ID = [id number] for Tavia Bruce Vitamin [id number] 06:28:47 Test Item Value Reference Range Interpretation Comments Vitamin B12 (test code = 1626 pg/mL 213-816 H 2131-9) BRANDI (test code = BRANDI) [employer] Machine Operator ID - ADMIN Lab Interpretation (test Abnormal code = 41693-7) [facility] [id number] 06:28:47 Test Item Value Reference Range Interpretation Comments Vitamin B12 (test code = 1626 pg/mL 213-816 H 2131-9) BRANDI (test code = BRANDI) [employer] Machine Operator ID - ADMIN Lab Interpretation (test Abnormal code = 66036-3) [facility] [id number] 06:28:47 Test Item Value Reference Range Interpretation Comments Vitamin B12 (test code = 1626 pg/mL 213-816 H 2132-9) BRANDI (test code = BRANDI) [employer] Machine Operator ID - ADMIN Lab Interpretation (test Abnormal code = 13568-2) [facility] [id number] 06:28:47 Test Item Value Reference Range Interpretation Comments Vitamin B12 (test code = 1626 pg/mL 213-816 H 2132-9) BRANDI (test code = BRANDI) [employer] Machine Operator ID - ADMIN Lab Interpretation (test Abnormal code = 06020-2) [facility] [id number] 06:28:47 Test Item Value Reference Range Interpretation Comments Vitamin B12 (test code = 1626 pg/mL 213-816 H 2132-9) BRANDI (test code = BRANDI) [employer] Machine Operator ID - ADMIN Lab Interpretation (test Abnormal code = 67607-3) [facility] [id number] 06:28:47 Test Item Value Reference Range Interpretation Comments Vitamin B12 (test code = 1626 pg/mL 213-816 H 2132-9) BRANDI (test code = BRANDI) [employer] Machine Operator ID - ADMIN Lab Interpretation (test Abnormal code = 71197-0) [facility] [id number] 06:28:47 Test Item Value Reference Range Interpretation Comments Vitamin B12 (test code = 1626 pg/mL 213-816 H 2132-9) BRANDI (test code = BRANDI) [employer] Machine Operator ID - ADMIN Lab Interpretation (test Abnormal code = 44251-9) [facility] [id number] 06:28:47 Test Item Value Reference Range Interpretation Comments Vitamin B12 (test code = 1626 pg/mL 213-816 H 2132-9) BRANDI (test code = BRANDI) [employer] Machine Operator ID - ADMIN Lab Interpretation (test Abnormal code = 51577-2) [facility] [id number] 06:28:47 Test Item Value Reference Range Interpretation Comments Vitamin B12 (test code = 1626 pg/mL 213-816 H 2132-9) BRANDI (test code = BRANDI) [employer] Machine Operator ID - ADMIN Lab Interpretation (test Abnormal code = 34064-0) [facility] [id number] 06:28:47 Test Item Value Reference Range Interpretation Comments Vitamin B12 (test code = 1626 pg/mL 213-816 H 2132-9) BRANDI (test code = BRANDI) [employer] Machine Operator ID - ADMIN Lab Interpretation (test Abnormal code = 09295-5) [facility] [id number] 06:28:47 Test Item Value Reference Range Interpretation Comments Vitamin B12 (test code = 1626 pg/mL 213-816 H 2132-9) BRANDI (test code = BRANDI) [employer] Machine Operator ID - ADMIN Lab Interpretation (test Abnormal code = 61084-3) [facility] [id number] 06:28:47 Test Item Value Reference Range Interpretation Comments Vitamin B12 (test code = 1626 pg/mL 213-816 H 2132-9) BRANDI (test code = BRANDI) [employer] Machine Operator ID - ADMIN Lab Interpretation (test Abnormal code = 06191-2) [facility] [id number] 06:28:47 Test Item Value Reference Range Interpretation Comments Vitamin B12 (test code = 1626 pg/mL 213-816 H 2132-9) BRANDI (test code = BRANDI) [employer] Machine Operator ID - ADMIN Lab Interpretation (test Abnormal code = 83424-3) [facility] [id number] 06:28:47 Test Item Value Reference Range Interpretation Comments Vitamin B12 (test code = 1626 pg/mL 213-816 H 2132-9) BRANDI (test code = BRANDI) [employer] Machine Operator ID - ADMIN Lab Interpretation (test Abnormal code = 28152-9) [facility] [id number] 06:28:47 Test Item Value Reference Range Interpretation Comments Vitamin B12 (test code = 1626 pg/mL 213-816 H 2132-9) BRANDI (test code = BRANDI) [employer] Machine Operator ID - ADMIN Lab Interpretation (test Abnormal code = 42893-0) [facility] [id number] 06:28:47 Test Item Value Reference Range Interpretation Comments Vitamin B12 (test code = 1626 pg/mL 213-816 H 2132-9) BRANDI (test code = BRANDI) [employer] Machine Operator ID - ADMIN Lab Interpretation (test Abnormal code = 10637-6) [facility] [id number] 06:28:47 Test Item Value Reference Range Interpretation Comments VITAMIN B12 (BEAKER) (test code = 1626 pg/mL 213-816 H 774) [employer] Machine Operator ID - ADMINBASIC METABOLIC [id number] 06:22:27 Test Item Value Reference Range Interpretation [...] S NOT APPLICABLE FOR DIALYSIS PATIEN TS. [employer] Machine Operator ID - [id number] 06:08:16 Test Item Value Reference Range Interpretation Comments MAGNESIUM (BEAKER) (test code = 2.3 mg/dL 1.6-2.6 627) [employer] Machine Operator ID - [id number] 06:08:16 Test Item Value Reference Range Interpretation Comments PHOSPHORUS (BEAKER) (test code = 5.6 mg/dL 2.3-4.7 H 604) [employer] Machine Operator ID - DBPROTHROMBIN TIME/[id number] 05:55:08 Test Item Value Reference Range Interpretation Comments PROTIME (BEAKER) 14.2 seconds 11.9-14.2 (test code = 759) INR (BEAKER) (test 1.12 See_Comment [Automat ed message] code = 370) The system [employer] generated this result transmitted ref erence range: <=5.90. The reference range was not used to int erpret this result as normal/abnormal . RECOMMENDED COUMADIN/WARFARIN INR THERAPY RANGESSTANDARD DOSE: 2.0 - 3.0 Includes: PROPHYLAXIS for venous thrombosis, systemic embolization; TREATMENT for venous thrombosis and/or pulmonary embolus.HIGH RISK: Target INR is 2.5-3.5 for patients with mechanical heart valves.CBC W/PLT COUNT & AUTO [id number] 05:42:08 Test Item Value Reference Range Interpretation [...] = 2801) RAD, CHEST, 1 VIEW, NON [id number] 02:35:00Reason for exam:->shortness of breathShould this be performed at the bedside?->Yes [facility] 1955 Sex: FFINAL REPORT RAD, CHEST, 1 VIEW, NON DEPT INDICATION: shortness of breath COMPARISON: None FINDINGS: Portable frontal view of the chest. 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 Lungs and pleura: No airspace consolidation or effusion. No pneumothorax. Heart and mediastinum: Unremarkable cardiomediastinal contours. Additional findings: Status post median sternotomy. Signed: Andrew Cary Verified Date/Time: 06/08/2021 02:35:39 POCT-GLUCOSE [id number] 23:26:33 Test Item Value Reference Range Interpretation Comments POC-GLUCOSE METER 279 mg/dL 70-110 H : TESTED A T [facility] 6720 (BEAKER) (test code = [place], 1538) [address]: [employer] Machine Operator/Techni kelle ID = [id number] for Tavia Bruce COMPREHENSIVE METABOLIC [id number] 22:28:11 Test Item Value Reference Range Interpretation [...] S NOT APPLICABLE FOR DIALYSIS PATIEN TS. [employer] Machine Operator ID - DBVancomycin level, [id number] 22:19:31 Test Item Value Reference Range Interpretation Comments Vancomycin Rm (test 16.1 ug/mL code = 29725-2) BRANDI (test code = Reference Range: No BRANDI) NormalsOperator ID - DB [facility], [id number] 22:19:31 Test Item Value Reference Range Interpretation Comments Vancomycin Rm (test 16.1 ug/mL code = 80056-1) BRANDI (test code = Reference Range: No BRANDI) NormalsOperator ID - DB [facility], [id number] 22:19:31 Test Item Value Reference Range Interpretation Comments Vancomycin Rm (test 16.1 ug/mL code = 12953-9) BRANDI (test code = Reference Range: No BRANDI) NormalsOperator ID - DB [facility], [id number] 22:19:31 Test Item Value Reference Range Interpretation Comments Vancomycin Rm (test 16.1 ug/mL code = 44641-6) BRANDI (test code = Reference Range: No BRANDI) NormalsOperator ID - DB [facility], [id number] 22:19:31 Test Item Value Reference Range Interpretation Comments Vancomycin Rm (test 16.1 ug/mL code = 87081-8) BRANDI (test code = Reference Range: No BRANDI) NormalsOperator ID - DB [facility], [id number] 22:19:31 Test Item Value Reference Range Interpretation Comments Vancomycin Rm (test 16.1 ug/mL code = 07274-7) BRANDI (test code = Reference Range: No BRANDI) NormalsOperator ID - DB [facility], [id number] 22:19:31 Test Item Value Reference Range Interpretation Comments Vancomycin Rm (test 16.1 ug/mL code = 77362-2) BRANDI (test code = Reference Range: No BRANDI) NormalsOperator ID - DB [facility], [id number] 22:19:31 Test Item Value Reference Range Interpretation Comments Vancomycin Rm (test 16.1 ug/mL code = 38834-6) BRANDI (test code = Reference Range: No BRANDI) NormalsOperator ID - DB [facility], [id number] 22:19:31 Test Item Value Reference Range Interpretation Comments Vancomycin Rm (test 16.1 ug/mL code = 66003-8) BRANDI (test code = Reference Range: No BRANDI) NormalsOperator ID - [facility], [id number] 22:19:31 Test Item Value Reference Range Interpretation Comments Vancomycin Rm (test 16.1 ug/mL code = 38514-1) BRANDI (test code = Reference Range: No BRANDI) NormalsOperator ID - DB [facility] hospital, [id number] 22:19:31 Test Item Value Reference Range Interpretation Comments Vancomycin Rm (test 16.1 ug/mL code = 46363-0) BRANDI (test code = Reference Range: No BRANDI) NormalsOperator ID - [facility], [id number] 22:19:31 Test Item Value Reference Range Interpretation Comments Vancomycin Rm (test 16.1 ug/mL code = 08272-3) BRANDI (test code = Reference Range: No BRANDI) NormalsOperator ID - DB [facility], [id number] 22:19:31 Test Item Value Reference Range Interpretation Comments Vancomycin Rm (test 16.1 ug/mL code = 86643-9) BRANDI (test code = Reference Range: No BRANDI) NormalsOperator ID - DB [facility], [id number] 22:19:31 Test Item Value Reference Range Interpretation Comments Vancomycin Rm (test 16.1 ug/mL code = 88645-8) BRANDI (test code = Reference Range: No BRANDI) NormalsOperator ID - DB [facility], [id number] 22:19:31 Test Item Value Reference Range Interpretation Comments Vancomycin Rm (test 16.1 ug/mL code = 14625-1) BRANDI (test code = Reference Range: No BRANDI) NormalsOperator ID - DB [facility], [id number] 22:19:31 Test Item Value Reference Range Interpretation Comments Vancomycin Rm (test 16.1 ug/mL code = 81078-4) BRANDI (test code = Reference Range: No BRANDI) NormalsOperator ID - DB [facility], [id number] 22:19:31 Test Item Value Reference Range Interpretation Comments VANCOMYCIN RANDOM (BEAKER) (test 16.1 ug/mL code = 523) Reference Range: No NormalsOperator ID - DBCBC W/PLT COUNT & AUTO [id number] 22:05:27 Test Item Value Reference Range Interpretation [...] Interpretation Comments POCT GLU (test code = 1861742123) 129 mg/dL 70-110 H Lab Interpretation (test code = Abnormal 96286-0) [facility] GLUCOSE (AUTOMATED)2021-05-22 17:41:02 Test Item Value Reference Range Interpretation Comments POCT GLU (test code = 5131563248) 120 mg/dL 70-110 H Lab Interpretation (test code = Abnormal 69438-4) [facility] GLUCOSE (AUTOMATED)2021-05-22 13:46:20 Test Item Value Reference Range Interpretation Comments POCT GLU (test code = 2716234735) 174 mg/dL 70-110 H Lab Interpretation (test code = Abnormal 31829-9) [facility] METABOLIC PANEL (NA, K, CL, CO2, GLUCOSE, BUN, CREATININE, CA)2021-05-22 10:34:14 Test Item Value Reference Range Interpretation Comments NA (test code = 128 mmol/L 135-145 L 4250134012) K (test code = 5.2 mmol/L 3.5-5.0 H 9905593309) CL (test code = 95 mmol/L 98-108 L 6093634117) CO2 TOTAL (test code = 24 mmol/L 23-31 3960961761) AGAP (test code = 2-16 8210402358) BUN (test code = 43 mg/dL 7-23 H 2771699842) GLUCOSE (test code = 182 mg/dL 70-110 H 3032250447) CREATININE (test code = 5.93 mg/dL 0.50-1.04 H 5798288268) CALCIUM (test code = 8.0 mg/dL 8.6-10.6 L 5458074638) eGFR (test code = mL/min/1.73m2 6866631817) BRANDI (test code = BRANDI) Association of [...] tests). Lab Interpretation Abnormal (test code = 48685-8) [facility] WITH [id number] 10:25:51 Test Item Value Reference Range Interpretation Comments WBC (test code = See_Comment [Automated 0946-2) message] The sy stem which generated this result transmitted reference range : 4.30 - 11.10 10*3/?L. The reference range was not used to interpret this result as normal/abnormal . RBC (test code = See_Comment L [Automated 969-8) message] The sy stem which generated this [...] (test code = 50.7 fL 39.0-49.9 H 69573-4) RDW-CV (test code = 14.6 % 12.0-15.5 788-0) PLT (test code = See_Comment L [Automated 777-3) message] The sy stem which generated this result transmitted reference range : 166 - 358 10*3/ ?L. The reference r alba was not used to interpret this result as normal/abnormal . MPV (test code = 11.2 fL 9.5-12.9 47455-1) NRBC/100 WBC (test See_Comment [Automat ed code = 2019076026) message] The system which generated this result transmitted reference range : 0.0 - 10.0 /100 WBCs. The refer ence range was not u sed to interpret th is result as normal/abnormal . NRBC x10^3 (test code <0.01 See_Comment [Auto mated = 8673610572) message] The s ystem which generated this result transmitted reference range : 10*3/?L. The reference range was not used to interpret this result as normal/abnormal . GRAN MAT (NEUT) % 75.4 % (test code = 770-8) IMM GRAN % (test code 0.70 % = 0151619101) LYMPH % (test code = 12.5 % 736-9) MONO % (test code = 10.3 % 5905-5) EOS % (test code = 0.8 % 713-8) BASO % (test code = 0.3 % 706-2) GRAN MAT x10^3(ANC) 4.54 10*3/uL 1.88-7.09 (test code = 9973749122) IMM GRAN x10^3 (test 0.04 10*3/uL 0.00-0.06 code = 1101645558) LYMPH x10^3 (test code 0.75 10*3/uL 1.32-3.29 L = 731-0) MONO x10^3 (test code 0.62 10*3/uL 0.33-0.92 = 742-7) EOS x10^3 (test code = 0.05 10*3/uL 0.03-0.39 711-2) BASO x10^3 (test code <0.03 0.01-0.07 = 704-7) Lab Interpretation Abnormal (test code = 80844-0) [facility] [id number] 05:24:06 Test Item Value Reference Range Interpretation Comments NT-proBNP (test code 195256 pg/mL See_Comment H [Autom ated = 1758836368) message] The system which generated this result transmitted reference range : <=125. The reference range was not used to interpret this result as normal/abnormal . BRANDI (test code = BRANDI) Biotin has been reported to cause a negative bias, interpret results relative to patient's use of biotin. Lab Interpretation Abnormal (test code = 32257-4) [facility] CenterGl[facility], [id number] 04:46:54 Test Item Value Reference Range Interpretation Comments GLUCOSE (test code = 0636307701) 107 mg/dL 70-110 Lab Interpretation (test code = Normal 77550-6) [facility] CenterProtein Total [id number] 04:46:34 Test Item Value Reference Range Interpretation Comments T PROTEIN (test code = 1131251085) 6.1 g/dL 6.3-8.2 L Lab Interpretation (test code = Abnormal 37456-7) [facility] CenterLACTATE [id number] 04:46:18 Test Item Value Reference Range Interpretation Comments LDH (test code = 6589090542) 311 U/L 300-600 Lab Interpretation (test code = Normal 78314-9) [facility] CenterTROPONIN [id number] 00:24:29 Test Item Value Reference Interpretation Comments Range TROPONIN I (test 0.084 ng/mL See_Comment H [Automated code = 9162152651) message] The system which generated this result [...] biotin. Lab Interpretation Abnormal (test code = 29612-7) [facility] CenterCyto Pleural Olvle3448-46-96 23:21:29 Test Item Value Reference Range Interpretation Comments Case Report (test code = Non-Gynecologic 0227897158) Cytology ?Case: [id number] ?Authorizing Provider: ?Candido Robison DO ?Collected: ? 05/20/2021 1604 ?Ordering Location: ? ? [facility] Medicine Surgery Unit ?Received: ?05/20/2021 1631 ?Pathologist: ? Mariana, ? MD Duc ?Specimen: ? ?PLEURAL, RIGHT ? Final Diagnosis (test o1yszQNiFYOum5ovHZPdo code = 2755169298) GFuZzEwMzNcZnRuYmpcdW MxIHtccnRmMVxlcGljOTY tPAwwnlMmLWKixTIqO1Te szxpKQiuRU5aSE8kkAbzj DRnuZMpYMFcGqQew3goi1 96aYEpo9qyGFCBtwvdtYa 8rHbyK43an9F2TkckM13n kBLeYQN3ZQSlRHPutPGwU KPvILO0PIXmbNVyV2frCA CwTJ6xudldVJhgUHtrSXT ulLY9MLLsrEWlO9CfOBHp GSugRWExouv3NzFwYk6rc GVyeTcyMFxwYXJkXHBsYW luXGJcZnMyMFxwYXIgQS4 gIFBMRVVSQSwgUklHSFQ7 YOHGP0ZXQ9OZUPAKQSXxC oeOMFS1BDQklbOiWAPoLK 2zBmOEURQKTfPfXp7XLD2 BTElHTkFOVCBDRUxMUyBc QlXaCSDJZNDGM14MTC2ZR VxwYXJccGFyIFBhdWwgWW 82jummRW1PUOFktRVjpST vkNriyb46RBP5ARHpWfR2 LzIwMjJccHJvdGVjdDAgX HBsYWluXGZzMjAgICAyOj Q0KPUYEFShqqlfSDT9d3v ydGYxXHNzdGVjZjIyMDAw KXPrr2teNEVczMMcFkLrE zNcZnRuYmpcdWMxXGRlZm Bml2nuv299uXLao7weIBP kAgU9aEOuEEWmcMndbjz9 rJtwFmXoNCDbv0oompWcH mNoYXJzZXQwIEFyaWFsO3 37ZTXmKKlpw0zgz9NnHDH roEOvd7Z6PLENORqlZqMf P254f1yuc9xmdmJnkHK1I ORaPJN8BOnszfVegrI4VE bltVKbYhG3BEkimfItDSy dpcKzwkUoAdv8MFNgQ635 VBQ7xRcqp7vmHBP9MATfL UKtDmjrEn0ikRUqE227IP HlLYXTFIIgwYr2QSIltlM pulLzdIDEu467E269h6pw HJTsorZjcAdNablce5rqC 319XHBhcGVydzEyMjQwXH SruYGakIK5RHDfHZ8heyk hBVqkUQbbBSXtdjL0EHJx bLIlG1ItFKOvAF2kvuvnZ JA4IAxoGHQiPFX7FgGgDR Pba1Azrte5ZjPjcu6plv3 7SZH3t4CmcGwyAAC6OEK2 CnCqXb1daFBkBPJbDX9gW sJydZEdFZBeem58bYhcKC yuicOnrB1hNpPrCKOcwXP iKFWgCW9shYXkKJScxP1h cmxjXHBnYnJkcmhlYWRcc JffklXnCw1nnPjyEUF2BL qaR9myqN4hCtM4IIlbK5o ceF8nXAk0TCdvdKZ5RNPt aP3wVF1zqfajf5tyNLooP JmsYKZgemX0zcR8QJEihM EnR8SlxT5xHZBbBS5ljda hm8sbHYM6KPmaWILlGUL0 PxAqQGTkp1Vbasc0BeDof 5OouRZpHXdaX21lk925RE KhzfTmC7symCIbbatimDW mmzrmPPobiiP4EMNxHPLw YWluXGYxXGZzMjBcbGFuZ zEwMzNcaGljaFxmMVxkYm ZvXZChMAovO1vgVmNgX7N yXGZzMjBccGFyIEkgaGF2 NEEtJEDao90jmXi5XDTqp cpgf7VoNGSasPXhqDWydP 0jsfHvh5qwNOYgFNCsEEN zH2HdWNM7bHIsJTYdfSQi hSN0WS8qwoMiQC6iKWGzO nkgcmVzaWRlbnRzLCBmZW xww7veJQ0oDZXcyJzdeS7 gpFO0HKHkm5teoDOuaUVa m4rkd6EfutMhIHhzQCNoS PwkLMZbCPSwQE1xATEmhW UhvdJwd1G6YrcbiYUpdev sWfjspaI6XTehzfvcYDHe NLcaG3kuNcOpHZLsgFwpJ jaqz7RuXOJeQANeQvallQ FyfX0= Final Diagnosis Comment l0gnpSCqZZYljDW7LyOxN (test code = 4669941283) NYvp9luk4SteFXhsVUjJE ylhVXmrkMpyp66cDI8xN8 0CO6cNCOmCaR3YNZemxE8 Nun7MMDkRKNeuRJkQ128n 4jpt9xdsdGsxHP0cEklDP JpfygzByN9EWxsXWKxalh gSFv9KEyoMEGyhFG7PQEl jGTsB8IeHJBiPJ9nieq1F JQ2IIbcGXKrEcS9QMZvgC XuHKKezZplTYuqy941SCG 4WiLrPGRintYdvIshtT4c ZnMyMCBTbWVhcnMgYXJlI IPjmJZfU9PbsOQsOCWbML 7rZQFhb3dqizNsQSAzSK4 uL56xeRXge5VyUPcrMHrk Q3NixZZeCB7gSPEeh47uB UNbQY5soeHmZbKKauAvZW wsW57otfGrV1GmgUHkbXQ vsdQgKkhhEI5cLOTdpg8= Clinical Information Clinical Hx: ESRD (test code = 3710113265) Gross Description (test z2nzkYNiLTNteVD8IjXmB code = 2023470331) RIvo0idm6TceGEwdHVvNK gecJWnhjMpqe89bQW4iG1 1WL1oRMRuPkY3UCVknvG7 Sfg5OIHrMOEgvMHxN859i 7ahu2tvzwVttAT9dXqnPD FgwihuJkD2MLgzGODbgqt zDIf8CLzhJVEskXA0KVVm uVTnW8FpAJEeNV2yxsg9S UR9SIhmINKtMzS7USAngG DcUIPfoSurIXeok015ACT 1QzKoYKSqnkV3BScoKGGc Y7LwP7WoNIzeWSQ5UEKeT CBcXHQgMSBcXGZsIFxcbm G4i7dcTIGseJOvSUV3GTg caWQgNTEwMDIgXFxkYiBP JnBiWtNiRKH4VXG6FZErQ Cz6GEklC5HEJURpJNQ5VX GpMSa3TwL9FIs9CWTTMx9 qRAB3QXFvGGc4ROL3FKX7 NCBcXHQgMiBcXGZsIFxcZ iBBcmlhbCBcXGZzIDEwIF orxrZ8CRRsBFwwYHOcIhG ccGFyXGZzMjJccGFyIEEx LiAgUExFVVJBLCBSSUdIV XkfXCkNNkEFEO4YTUZLHj BGTFVJRFxwYXIgUmVjZWl 7MYSdQpOej3dcuVBdNPYp UrdoPU6uLQpgxXjkehIvw HVpZCBccGFyIFByZXBhcm WgIAJhu4xmHJZeWLwvLGY hcGFuaWNvbGFvdSBjeXRv c1WxjjkoLE0eZSMqIh6mM W1uw1AkfMKnxTUji0Hgdk AcgzQaVFZgwQgzeutrf2y elPjmb9SejMScDZ66YPDv yUEsHPS5AN8btXlhRCV1 Disclaimer (test code = p2pnuHYmEEQie5ykSNQjh 6032893891) GFuZzEwMzNcZnRuYmpcdW IaRVspvoMzPApyz8UfA2X yMjAwMFxhbnNpXGRlZmxh ywbtFZZfTYK0pfZyCEXxD ApaRPBhQZlnXm4npGAqmE nkOhMrBCIxo7tqipVZGZl fMcIjF586BMGhRKges0yo j3PzEVQkxYYii2H7PEOHy sykdEm8mDggG25eu8F3Fs xbP0yaIDGvAWVfS9QmNW6 hVAKeVtq8ACA8KIX2OOGh YBBzP1NcJM0vSLAszUDcF Iw0q9nwiNzzMHViDXS1i5 nvQHekwuQyEH9tto0udGx 6b0rmziYcYRUdVYWmaWFE QRReU5UqnVviOd5ihNq7v JobFptdNMO0Ncn1YX7qqn 81hvu9uVgxVPMgfvysOrO 6PMikCDVcbqpwINd3VFak NSUnuDL9EQYveZNaD1VxC IFaBQ2gats2NDU2AIurKB RuQyK5XBLesZBwPYQzgPm zUUbqz805DTM1WrIkOC8x O7Aqu2R5fX4abYFyUUTai YNhJxUgCLXrfk1lyQPpCW vky5KpYYR9ukQ9jEVdaNX rQTAdFH30Ocnbp6RgBxww g9PmG83oxTZ2QGssj2eiT E3hSuM6tmEbBEmwl1glqL 0cRrY3QGkuXC0hIK9jEKR brY1afoqsEGTeGyIgpeen JIHkgHasygBaTt1ocTrtS IZ7YXseS2ynqB3nZpS2DN eeO6vjkB9vNEn7TXlqeOI 2BGIzrV5pMO3mssrop3kg YEbqPEteJFVojvI2joB0R CLxoZMlV6JglM1yBDJkHR 5nblizf2evYDB6PKgqMRE jYBP6WlVeTVWhy6Zbicu3 JnMcw4TaiHMuVTxsS09ap 879VHHnkxYtM3kgpLXkcy elyTGnvggsRTwxqlQ2NHU floGte9MbCOJpFMG1GRyr IAmwvMOrKYZpnHzoy9nrS 3RscGFyXHBsYWluXGYxXG ZzMjBcbGFuZzEwMzNcaGl jaFxmMVxkYmNoXGYxXGxv Y5udHqDbC1YmZRZbYjRre YGaW8tcMWprvrYlHUYtkf UsvPA4SQzoI6x5QBSjywI dwHi0ghUpFaEbPONzIZH7 QNqhoUTwRDDyb3Tytzwzh ZQwRi4xoPPfAWRotX0nZO ZrPNJxVSboCZ3xlDn1DSH RpQLcxSFhLlQFQNVuBK89 ekEtJGZRfdnkq7Q1EFhxH OCjb8TciQFuT8kqm9ErGL Ssg00jAI2da2Q7k2noXIZ 7OV4zi5LtBSRsaDWshNYu ITTpj6Nzlrlme6KnAPSup vGik4EaEECmldCkcFCcQA ViytNhmd3slcDoZGNgAXG eR5TmasnujOnuzoVxMJXs hy1sogZzVKO2AVBTDJQhM OToe8PtyK0cfJEJFSR6kN Vffz0ljwOFrDIzFUFsjy6 6ERNcHE2gB1weEVWhJVYb mfMgqFOpy2JjUXCruUE2p TGbFT8KGvTXd71yIRMjWA SVbjOqREKxrDvqjYA3gjA 0aJ0eLRkOCUIaVrn+IFRo PEXZLTLrPE7exzZmf1Yon gXcjKyaYSQipOCjx6ImsO Rgv7ApnYyff6OkhHIwzRV gZO9gDRTivamtJSWnNXQM YeSOQGEfksF5y1RyNJPnZ WXtDHO4sWohkmn8LUEwgO 7lILStP5lkfmseHNefTUJ sa0HhaW6cnZPNnTRgk5Kx gJPkqVBOlZEnOM7urzNxH ZcLBNnZHDA5ytYgAOEex5 ZuFBwvZ0azD92ntDlrdOl 5oTV6KGI7oV9rFnn+IFxw YXJccGFyIEFwcHJvcHJpY QOvdEsfvfAtL6FcquOdbR 1puXUtcmPwPS8xIC1eG6K 6jBNlINWcnrLiw1vzSDvf dmUgYmVlbiByZXZpZXdlZ NYvk5WuDAnxTFP1HYtubu BpbmNsdWRpbmcgSCZFLCB WxJMfsWJqSSR4INncyoYy pbTcNY1aaQ8fuFvxnN2za TPhqAJ0eshgGXDgFBEmzC nwLEJyNK3ufSSmDZDotpN KaRxznUGnfS0oI2GnNFSn KRDbkr9cWVIutU7oVGgqe 2VydmljZXMgYXJlIHBlcm Sfms2hJLHtnRDUAU0XOMf nlOMwv3EbirIpL2pAAAA6 NUQwNjYwMjgxKSBleGNlc BZeJZUqcg20ERYciH7ldQ mdBYQsqE1caS1nmKxwaY0 oWtYuSxTxQRxbQW3gOSQu X4uorVZkWEHsLQZpT5ypV jVptD5dwHgzSYcpJaMzCa IhJCgpYVH1gB== Embedded Images (test code = 1425771330) [facility]2021-[facility]-21 23:17:01 Test Item Value Reference Range Interpretation Comments POCT GLU (test code = 3640096270) 109 mg/dL 70-110 Lab Interpretation (test code = Normal 95057-7) [facility] CenterDIFF CONSULT [id number] 21:50:44 UNREMARKABLE LEUKOCYTES WITH ABSOLUTE LYMPHOPENIA. MODERATE NORMOCYTIC NORMOCHROMIC ANEMIA. MILD THROMBOCYTOPENIA.[facility] VITAMIN B12, [id number] 18:38:08 Test Item Value Reference Range Interpretation Comments VIT B12 (test code = >1000 240-930 H 8043937959) BRANDI (test code = BRANDI) Biotin has been reported to cause a positive bias, interpret results relative to patient's use of biotin. Lab Interpretation (test Abnormal code = 84705-0) [facility] CenterVIT[facility] D, [id number] 17:51:01 Test Item Value Reference Range Interpretation Comments VIT D 25OH (test code = 24 ng/mL 25-80 L 87056-1) BRANDI (test code = BRANDI) Deficiency: <20 ng/mLInsufficiency: 20-24 ng/mLOptimal: 25-80 ng/mL Lab Interpretation (test Abnormal code = 61664-7) [facility] CenterFOLATE2022-02-17 17:42:20 Test Item Value Reference Range Interpretation Comments FOLATE SER (test code = 6.1 ng/mL 3.0-20.0 Biot in has been 7918892513) reported to cau se a positive bias, interpret resul ts relative to patient's use o f biotin. Lab Interpretation (test Normal code = 55050-1) [facility]2021-05-21 17:17:00 Test Item Value Reference Range Interpretation Comments POCT GLU (test code = 3800551985) 175 mg/dL 70-110 H Lab Interpretation (test code = Abnormal 55882-6) [facility] CenterTROPONIN [id number] 14:52:32 Test Item Value Reference Interpretation Comments Range TROPONIN I (test 0.109 ng/mL See_Comment H [Automated code = 9894789268) message] The system which generated this result [...] biotin. Lab Interpretation Abnormal (test code = 68771-1) [facility] CenterIRON [id number] 14:49:31 Test Item Value Reference Range Interpretation Comments IRON (test code = 3546210949) 30 ug/dL 50-160 L TIBC (test code = 4288516290) 185 ug/dL 250-410 L % FE SAT (test code = 0904117031) 16 % 20-50 L Lab Interpretation (test code = Abnormal 43426-8) [facility]2021-05-21 14:06:00 Test Item Value Reference Range Interpretation Comments POCT GLU (test code = 8301753366) 191 mg/dL 70-110 H Lab Interpretation (test code = Abnormal 69384-4) [facility] CenterFERRITIN [id number] 14:05:25 Test Item Value Reference Range Interpretation Comments FERRITIN (test code = 715.0 ng/mL 11.0-264.0 H 9405429101) BRANDI (test code = BRANDI) Biotin has been reported to cause a negative bias, interpret results relative to patient's use of biotin. Lab Interpretation (test Abnormal code = 40193-7) [facility] CenterN-TERMINAL [id number] 13:56:37 Test Item Value Reference Range Interpretation Comments NT-proBNP (test code 574026 pg/mL See_Comment H [Autom ated = 1298061366) message] The system which generated this result transmitted reference range : <=125. The reference range was not used to interpret this result as normal/abnormal . BRANDI (test code = BRANDI) Biotin has been reported to cause a negative bias, interpret results relative to patient's use of biotin. Lab Interpretation Abnormal (test code = 74179-9) [facility] CenterTROPONIN [id number] 13:43:04 Test Item Value Reference Interpretation Comments Range TROPONIN I (test 0.100 ng/mL See_Comment H [Automated code = 1851168736) message] The system which generated this result [...] biotin. Lab Interpretation Abnormal (test code = 49030-6) [facility] CenterHEPATIC FUNCTION PANEL (05921) (ALB,T.PRO,BILI T,BU/BC,ALT,AST,ALK PHOS)2021-05-21 13:30:03 Test Item Value Reference Range Interpretation Comments TOTAL BILI (test code = 6540378122) 0.7 mg/dL 0.1-1.1 BILI UNCON (test code = 2960944492) 0.0 mg/dL 0.1-1.1 L BILI CONJ (test code = 0331871914) 0.0 mg/dL 0.0-0.3 T PROTEIN (test code = 8998417078) 7.2 g/dL 6.3-8.2 ALBUMIN (test code = 6067037442) 3.5 g/dL 3.5-5.0 ALK PHOS (test code = 9562968547) 156 U/L 34-122 H ALTv (test code = 1742-6) 12 U/L 5-35 AST(SGOT) (test code = 1051242458) 28 U/L 13-40 Lab Interpretation (test code = Abnormal 96273-1) [facility] CenterCB WITH [id number] 10:18:09 Test Item Value Reference Range Interpretation Comments WBC (test code = See_Comment [Automated 8619-2) message] The sy stem which generated this [...] (test code = 52.3 fL 39.0-49.9 H 78084-2) RDW-CV (test code = 14.9 % 12.0-15.5 788-0) PLT (test code = See_Comment L [Automated 777-3) message] The sy stem which generated this result transmitted reference range : 166 - 358 10*3/ ?L. The reference r alba was not used to interpret this result as normal/abnormal . MPV (test code = 11.0 fL 9.5-12.9 77559-9) NRBC/100 WBC (test See_Comment [Automat ed code = 2100841837) message] The system which generated this result transmitted reference range : 0.0 - 10.0 /100 WBCs. The refer ence range was not u sed to interpret th is result as normal/abnormal . NRBC x10^3 (test code <0.01 See_Comment [Auto mated = 1122557865) message] The s ystem which generated this result transmitted reference range : 10*3/?L. The reference range was not used to interpret this result as normal/abnormal . GRAN MAT (NEUT) % 74.4 % (test code = 770-8) IMM GRAN % (test code 0.30 % = 8613820973) LYMPH % (test code = 12.9 % 736-9) MONO % (test code = 11.2 % 5905-5) EOS % (test code = 0.7 % 713-8) BASO % (test code = 0.5 % 706-2) GRAN MAT x10^3(ANC) 4.40 10*3/uL 1.88-7.09 (test code = 4581007376) IMM GRAN x10^3 (test <0.03 0.00-0.06 code = 1227486648) LYMPH x10^3 (test code 0.76 10*3/uL 1.32-3.29 L = 731-0) MONO x10^3 (test code 0.66 10*3/uL 0.33-0.92 = 742-7) EOS x10^3 (test code = 0.04 10*3/uL 0.03-0.39 711-2) BASO x10^3 (test code 0.03 10*3/uL 0.01-0.07 = 704-7) Lab Interpretation Abnormal (test code = 75044-5) [facility] METABOLIC PANEL (NA, K, CL, CO2, GLUCOSE, BUN, CREATININE, CA)2021-05-21 10:17:29 Test Item Value Reference Range Interpretation Comments NA (test code = 132 mmol/L 135-145 L 2252681548) K (test code = 4.6 mmol/L 3.5-5.0 9737747172) CL (test code = 99 mmol/L 98-108 3431857482) CO2 TOTAL (test code = 27 mmol/L 23-31 3055481589) AGAP (test code = 2-16 2579812061) BUN (test code = 30 mg/dL 7-23 H 6824361897) GLUCOSE (test code = 129 mg/dL 70-110 H 8501914429) CREATININE (test code = 4.51 mg/dL 0.50-1.04 H 7239876989) CALCIUM (test code = 8.1 mg/dL 8.6-10.6 L 7278966375) eGFR (test code = mL/min/1.73m2 4886289839) BRANDI (test code = BRANDI) Association of [...] tests). Lab Interpretation Abnormal (test code = 62832-0) [facility] GLUCOSE (AUTOMATED)2021-05-21 02:24:31 Test Item Value Reference Range Interpretation Comments POCT GLU (test code = 7846030108) 123 mg/dL 70-110 H Lab Interpretation (test code = Abnormal 08549-0) [facility] GLUCOSE (AUTOMATED)2021-05-20 22:40:15 Test Item Value Reference Range Interpretation Comments POCT GLU (test code = 4733174461) 193 mg/dL 70-110 H Lab Interpretation (test code = Abnormal 27491-7) [facility] GLUCOSE (AUTOMATED)2021-05-20 17:24:39 Test Item Value Reference Range Interpretation Comments POCT GLU (test code = 7551943225) 129 mg/dL 70-110 H Lab Interpretation (test code = Abnormal 79843-7) [id number] 16:20:09 Test Item Value Reference Range Interpretation Comments NT-proBNP (test code 783193 pg/mL See_Comment H [Autom ated = 4467311477) message] The system which generated this result transmitted reference range : <=125. The reference range was not used to interpret this result as normal/abnormal . BRANDI (test code = BRANDI) Biotin has been reported to cause a negative bias, interpret results relative to patient's use of biotin. Lab Interpretation Abnormal (test code = 16204-3) [facility] 13:50:50 Test Item Value Reference Range Interpretation Comments POCT GLU (test code = 7100178758) 142 mg/dL 70-110 H Lab Interpretation (test code = Abnormal 22211-9) [facility] [id number] 11:29:26 Test Item Value Reference Range Interpretation Comments LDH (test code = 8200359122) 424 U/L 300-600 Slight hemolysis Lab Interpretation (test code Normal = 58210-6) [facility] METABOLIC PANEL (NA, K, CL, CO2, GLUCOSE, BUN, CREATININE, CA)2021-05-20 11:28:05 Test Item Value Reference Range Interpretation Comments NA (test code = 132 mmol/L 135-145 L 0260708112) K (test code = 4.6 mmol/L 3.5-5.0 9770798388) CL (test code = 97 mmol/L 98-108 L 9951135151) CO2 TOTAL (test code = 26 mmol/L 23-31 3371632372) AGAP (test code = 2-16 5555996677) BUN (test code = 44 mg/dL 7-23 H 3247123402) GLUCOSE (test code = 161 mg/dL 70-110 H 0518029588) CREATININE (test code = 6.29 mg/dL 0.50-1.04 H 7596507359) CALCIUM (test code = 8.0 mg/dL 8.6-10.6 L 3920540013) eGFR (test code = mL/min/1.73m2 9349314146) BRANDI (test code = BRANDI) Association of [...] tests). Lab Interpretation Abnormal (test code = 54393-7) [facility] / [id number] 11:17:25 Test Item Value Reference Range Interpretation Comments PROTIME PATIENT (test See_Comment [Auto mated message] code = 5964-2) The system [employer] generated this result transmitted ref erence range: 12.0 - 1 4.7 Seconds. The re ference range was not u sed to interpret this result as normal/abnor mal. INR (test code = 6301-6) Nor mal INR <1.1; Warfarin Therap eutic range 2.0 to 3. 0 or 2.5 to 3.5, dep ending upon the indica tions. Lab Interpretation (test Normal code = 47264-4) [facility] GLUCOSE (AUTOMATED)2021-05-20 01:38:05 Test Item Value Reference Range Interpretation Comments POCT GLU (test code = 2009036851) 181 mg/dL 70-110 H Lab Interpretation (test code = Abnormal 17639-1) [facility] GLUCOSE (AUTOMATED)2021-05-19 23:12:33 Test Item Value Reference Range Interpretation Comments POCT GLU (test code = 7897439261) 129 mg/dL 70-110 H Lab Interpretation (test code = Abnormal 70971-4) [facility] 17:43:05 Test Item Value Reference Range Interpretation Comments POCT GLU (test code = 9570306349) 195 mg/dL 70-110 H Lab Interpretation (test code = Abnormal 09703-5) [facility] [id number] 16:56:37 Test Item Value Reference Range Interpretation Comments NT-proBNP (test code 144819 pg/mL See_Comment H [Autom ated = 7517457826) message] The system which generated this result transmitted reference range : <=125. The reference range was not used to interpret this result as normal/abnormal . BRANDI (test code = BRANDI) Biotin has been reported to cause a negative bias, interpret results relative to patient's use of biotin. Lab Interpretation Abnormal (test code = 95681-4) [facility] (NA, K, CL, CO2, GLUCOSE, BUN, CREATININE, [place])2021-05-19 15:16:19 Test Item Value Reference Range Interpretation Comments NA (test code = 132 mmol/L 135-145 L 3046066416) K (test code = 4.7 mmol/L 3.5-5.0 6761890977) CL (test code = 98 mmol/L 98-108 4087665220) CO2 TOTAL (test code = 24 mmol/L 23-31 9693842892) AGAP (test code = 2-16 4540825136) BUN (test code = 30 mg/dL 7-23 H 6238723810) GLUCOSE (test code = 101 mg/dL 70-110 0776514246) CREATININE (test code = 4.70 mg/dL 0.50-1.04 H 4104404727) CALCIUM (test code = 8.3 mg/dL 8.6-10.6 L 7034477982) eGFR (test code = mL/min/1.73m2 8771504430) BRANDI (test code = BRANDI) Association of [...] tests). Lab Interpretation Abnormal (test code = 62616-1) [facility] 14:16:27 Test Item Value Reference Range Interpretation Comments POCT GLU (test code = 5485065597) 112 mg/dL 70-110 H Lab Interpretation (test code = Abnormal 99271-8) [facility] WITH [id number] 13:09:08 Test Item Value Reference Range Interpretation Comments WBC (test code = See_Comment [Automated 3390-2) message] The sy stem which generated this result transmitted reference range : 4.30 - 11.10 10*3/?L. The reference range was not used to interpret this result as normal/abnormal . RBC (test code = See_Comment L [Automated 319-8) message] The sy stem which generated this [...] (test code = 51.2 fL 39.0-49.9 H 61564-4) RDW-CV (test code = 14.6 % 12.0-15.5 788-0) PLT (test code = See_Comment L [Automated 777-3) message] The sy stem which generated this result transmitted reference range : 166 - 358 10*3/ ?L. The reference r alba was not used to interpret this result as normal/abnormal . MPV (test code = 11.0 fL 9.5-12.9 29443-1) NRBC/100 WBC (test See_Comment [Automat ed code = 5491538366) message] The system which generated this result transmitted reference range : 0.0 - 10.0 /100 WBCs. The refer ence range was not u sed to interpret th is result as normal/abnormal . NRBC x10^3 (test code <0.01 See_Comment [Auto mated = 7981119736) message] The s ystem which generated this result transmitted reference range : 10*3/?L. The reference range was not used to interpret this result as normal/abnormal . GRAN MAT (NEUT) % 82.8 % (test code = 770-8) IMM GRAN % (test code 0.40 % = 8635379045) LYMPH % (test code = 7.8 % 736-9) MONO % (test code = 7.9 % 5905-5) EOS % (test code = 0.7 % 713-8) BASO % (test code = 0.4 % 706-2) GRAN MAT x10^3(ANC) 5.98 10*3/uL 1.88-7.09 (test code = 2784733937) IMM GRAN x10^3 (test 0.03 10*3/uL 0.00-0.06 code = 2413373097) LYMPH x10^3 (test code 0.56 10*3/uL 1.32-3.29 L = 731-0) MONO x10^3 (test code 0.57 10*3/uL 0.33-0.92 = 742-7) EOS x10^3 (test code = 0.05 10*3/uL 0.03-0.39 711-2) BASO x10^3 (test code 0.03 10*3/uL 0.01-0.07 = 704-7) Lab Interpretation Abnormal (test code = 88137-0) [facility] B Surface Antibody (HBsAb)2021-05-19 09:35:37 Test Item Value Reference Range Interpretation Comments HBsAB (test code = Positive 8950090920) HBsAb mIU/mL Semi-Quantitative (test code = 3122434845) BRANDI (test code = Interpretation: BRANDI) ?Hepatitis B Surface Antibody ? Negative - Patient is considered to be not immune to infection with HBV. ? ? Positive - Anti-HBs detected at greater than or equal to 12 mIU/mL. ?Patient is considered to be immune to infection with HBV. ? [facility] B Surface Antigen (HBsAg)2021-05-19 09:17:53 Test Item Value Reference Range Interpretation Comments HBsAg Semi-Quantitative (test code = Negative Negative 5195-3) [facility] GLUCOSE (AUTOMATED)2021-05-19 03:13:02 Test Item Value Reference Range Interpretation Comments POCT GLU (test code = 5242492055) 110 mg/dL 70-110 Lab Interpretation (test code = Normal 51775-5) [facility] GLUCOSE (AUTOMATED)2021-05-18 23:00:40 Test Item Value Reference Range Interpretation Comments POCT GLU (test code = 0536530707) 177 mg/dL 70-110 H Lab Interpretation (test code = Abnormal 56664-3) [facility] GLUCOSE (AUTOMATED)2021-05-18 17:50:50 Test Item Value Reference Range Interpretation Comments POCT GLU (test code = 7396026106) 179 mg/dL 70-110 H Lab Interpretation (test code = Abnormal 40935-3) [facility] GLUCOSE (AUTOMATED)2021-05-18 17:26:29 Test Item Value Reference Range Interpretation Comments POCT GLU (test code = 4142001689) 171 mg/dL 70-110 H Lab Interpretation (test code = Abnormal 48348-4) [facility] METABOLIC PANEL (NA, K, CL, CO2, GLUCOSE, BUN, CREATININE, CA)2021-05-18 15:43:01 Test Item Value Reference Range Interpretation Comments NA (test code = 128 mmol/L 135-145 L 6112861564) K (test code = 5.5 mmol/L 3.5-5.0 H 7032400689) CL (test code = 94 mmol/L 98-108 L 0265638616) CO2 TOTAL (test code = 24 mmol/L 23-31 1310354830) AGAP (test code = 2-16 4019126524) BUN (test code = 56 mg/dL 7-23 H 1051655646) GLUCOSE (test code = 130 mg/dL 70-110 H 2596537443) CREATININE (test code = 7.52 mg/dL 0.50-1.04 H 3831901485) CALCIUM (test code = 7.8 mg/dL 8.6-10.6 L 2702504527) eGFR (test code = mL/min/1.73m2 8777087498) BRANDI (test code = BRANDI) Association of [...] tests). Lab Interpretation Abnormal (test code = 17411-2) [facility] GLUCOSE (AUTOMATED)2021-05-18 13:33:12 Test Item Value Reference Range Interpretation Comments POCT GLU (test code = 3337318487) 129 mg/dL 70-110 H Lab Interpretation (test code = Abnormal 46941-2) [facility] GLUCOSE (AUTOMATED)2021-05-17 22:57:15 Test Item Value Reference Range Interpretation Comments POCT GLU (test code = 6195390378) 215 mg/dL 70-110 H Lab Interpretation (test code = Abnormal 78977-6) [facility] Center[facility]2021-05-17 18:02:09 Test Item Value Reference Range Interpretation Comments LVOT diameter (test code 2.00 cm = 6212891789) MV Peak E [place] (test code 134.0 cm/s = 7437159409) MV Peak A [place] (test code 54.2 cm/s = 9859230424) E/A ratio (test code = ratio 3424306795) E wave decelartion time 0.22 s (test code = 4882910241) LA size (test code = 5.4 cm 7087703839) MV stenosis pressure 1/2 65.0 ms time (test code = 8473032548) MV dec slope (test code 604.00 cm/s2 = 6219030662) Ao root annulus (test 2.7 cm code = 0343429068) Ao root diam (test code 2.70 cm = 2488505298) Aortic root (test code = 2.7 cm 2304668928) LVIDD (test code = 5.10 cm 2380028288) IVS (test code = 1.06 cm 6176177386) Interventricular Septum 1.06 cm Diastolic Thickness by 2D (test code = 6512842) LVPWD (test code = 1.00 cm 0694522008) PW (test code = 1.00 cm 0.6-1.1 4778150702) LVIDS (test code = 3.70 cm 7574748337) FS (test code = 27 % 6772504165) EF(Teich) (test code = 52.60 % 5900892814) EF - 2D (test code = 52.60 % 95257157) MR max PG (test code = 123.90 mm[Hg] 1634735027) MR max marietta (test code = 556.50 cm/s 4518852154) Mr max [place] (test code = 556.5 m/s 0023316486) LAV(MOD-sp4) (test code 46.70 mL = 6400593236) LA Volume Index (BP) 29.2 mL/m2 (test code = 7240477656) LA volume (BP) (test 51.8 mL code = 3867195513) LAV(MOD-sp2) (test code 52.40 mL = 4760280680) Aortic valve mean 105.0 cm/s velocity (test code = 5413734042) Ao peak m[place] (test code = 160.0 cm/s 3844482215) Ao VTI (test code = 30.0 cm 5492561668) Ao max PG (test code = 10.20 mm[Hg] 7843266920) AV peak gradient (test mmHg code = 8160093778) AV mean gradient (test mmHg code = 5475017021) LVOT stroke volume (test 63.60 cm3 code = 7667793138) LVOT peak [place] (test code 108.3 cm/s = 2079734297) LVOT mn grad (test code mmHg = 5509010235) AV LVOT peak gradient mmHg (test code = 4975104222) LVOT peak VTI (test code 20.2 cm = 9005443609) AV area by cont VTI 2.1 cm2 (test code = 5243262600) AV area peak [place] (test 2.1 cm2 code = 9850255225) LV V1 mean (test code = 66.80 cm/s 3476039488) AV valve area (test code 2.12 cm2 = 8429243461) TR Peak [place] (test code = 342.9 cm/s 0852031815) Triscuspid Valve mmHg Regurgitation Peak Gradient (test code = 9667547987) PV REGURGITATION PEAK mmHg GRADIENT (test code = 6061750457) PI dec slope (test code 438.00 cm/s2 = 7083033821) Pulmonic Regurgitant End 105.3 cm/s Max Velocity (test code = 7170139836) Inferior Vena Cava 2.33 cm Diameter (test code = 5509617671) MV Prop V (test code = 37.50 cm/s 5877241351) Radiology Study observation (narrative) (test code = 86959-6) ADD (test code = ADD) Addendum by Brenda Fuentes MD on 05/17/2021 3:16 PM PSYCHOLOGICAL OPERATIONS ?Left?Ventricle: Low normal systolic function with a [...] (73.9 kg) 1.81 sq meters 165/73 71 [facility] GLUCOSE (AUTOMATED)2021-05-17 17:54:17 Test Item Value Reference Range Interpretation Comments POCT GLU (test code = 2069620181) 134 mg/dL 70-110 H Lab Interpretation (test code = Abnormal 32797-8) [facility] GLUCOSE (AUTOMATED)2021-05-17 14:18:37 Test Item Value Reference Range Interpretation Comments POCT GLU (test code = 4091490193) 119 mg/dL 70-110 H Lab Interpretation (test code = Abnormal 14882-4) [facility] CenterN-TERMINAL [id number] 11:21:13 Test Item Value Reference Range Interpretation Comments NT-proBNP (test code 018517 pg/mL See_Comment H [Autom ated = 4174428981) message] The system which generated this result transmitted reference range : <=125. The reference range was not used to interpret this result as normal/abnormal . BRANDI (test code = BRANDI) Biotin has been reported to cause a negative bias, interpret results relative to patient's use of biotin. Lab Interpretation Abnormal (test code = 72117-1) [facility] WITHOUT [id number] 11:09:22 Test Item Value Reference Range Interpretation Comments WBC (test code = 6690-2) See_Comment [A utomated message] The system [employer] generated this result transmit levi reference range : 4.30 - 11.10 10*3/?L. The reference range was not used to interpret this result as normal/abnormal . RBC (test code = 789-8) See_Comment L [Au tomated message] The system [employer] generated this result transmit levi reference range [...] See_Comment L [Au tomated message] The system [employer] generated this result transmit levi reference range : 166 - 358 10*3/?L. The reference range was not used to interpret this result as normal/abnormal . MPV (test code = 11.1 fL 9.5-12.9 28713-6) RDW-CV (test code = 14.5 % 12.0-15.5 788-0) RDW-SD (test code = 50.8 fL 39.0-49.9 H 82698-4) NRBC x10^3 (test code = <0.01 See_Comment [Au tomated message] 3219513170) The system [employer] generated this result transmit levi reference range : 10*3/?L. The reference range was not used to interpret this result as normal/abnormal . NRBC/100 WBC (test code See_Comment [Au tomated message] = 5062798656) The system [facility] generated this result transmit levi reference range : 0.0 - 10.0 /100 WBC s. The reference r alba was not used to interpret this result as normal/abnormal . IPF % (test code = 0337461330) Lab Interpretation (test Abnormal code = 20890-1) [facility] CenterMAGNESIUM2022-02-13 10:56:23 Test Item Value Reference Range Interpretation Comments MAGNESIUM (test code = 9833632699) 2.1 mg/dL 1.7-2.4 Lab Interpretation (test code = Normal 54469-5) [facility] (NA, K, CL, CO2, GLUCOSE, BUN, CREATININE, CA)2021-05-17 10:56:22 Test Item Value Reference Range Interpretation Comments NA (test code = 130 mmol/L 135-145 L 0460489765) K (test code = 4.6 mmol/L 3.5-5.0 0636646614) CL (test code = 96 mmol/L 98-108 L 6123000515) CO2 TOTAL (test code = 26 mmol/L 23-31 0741233319) AGAP (test code = 2-16 9125772716) BUN (test code = 42 mg/dL 7-23 H 0594117572) GLUCOSE (test code = 148 mg/dL 70-110 H 7593304980) CREATININE (test code = 5.84 mg/dL 0.50-1.04 H 2276602270) CALCIUM (test code = 7.9 mg/dL 8.6-10.6 L 9839709821) eGFR (test code = mL/min/1.73m2 9327453055) BRANDI (test code = BRANDI) Association of [...] tests). Lab Interpretation Abnormal (test code = 84655-5) [facility] CenterPHOSPHORUS2022-02-13 10:56:02 Test Item Value Reference Range Interpretation Comments PHOSPHORUS (test code = 5051509635) 5.8 mg/dL 2.5-5.0 H Lab Interpretation (test code = Abnormal 03981-2) [facility] GLUCOSE (AUTOMATED)2021-05-16 22:43:07 Test Item Value Reference Range Interpretation Comments POCT GLU (test code = 7801892540) 231 mg/dL 70-110 H Lab Interpretation (test code = Abnormal 37866-2) [facility] GLUCOSE (AUTOMATED)2021-05-16 17:43:53 Test Item Value Reference Range Interpretation Comments POCT GLU (test code = 4912478074) 154 mg/dL 70-110 H Lab Interpretation (test code = Abnormal 50257-5) [facility] GLUCOSE (AUTOMATED)2021-05-16 13:42:36 Test Item Value Reference Range Interpretation Comments POCT GLU (test code = 6089605960) 121 mg/dL 70-110 H Lab Interpretation (test code = Abnormal 64514-1) [facility] CenterCB WITHOUT [id number] 09:48:31 Test Item Value Reference Range Interpretation Comments WBC (test code = 6690-2) See_Comment [A utomated message] The system [employer] generated this result transmit levi reference range : 4.30 - 11.10 10*3/?L. The reference range was not used to interpret this result as normal/abnormal . RBC (test code = 789-8) See_Comment L [Au tomated message] The system [employer] generated this result transmit levi reference range [...] See_Comment L [Au tomated message] The system [employer] generated this result transmit levi reference range : 166 - 358 10*3/?L. The reference range was not used to interpret this result as normal/abnormal . MPV (test code = 10.9 fL 9.5-12.9 86333-5) RDW-CV (test code = 15.0 % 12.0-15.5 788-0) RDW-SD (test code = 52.6 fL 39.0-49.9 H 73319-1) NRBC x10^3 (test code = <0.01 See_Comment [Au tomated message] 2097545825) The system [employer] generated this result transmit levi reference range : 10*3/?L. The reference range was not used to interpret this result as normal/abnormal . NRBC/100 WBC (test code See_Comment [Au tomated message] = 9185491671) The system [facility] generated this result transmit levi reference range : 0.0 - 10.0 /100 WBC s. The reference r alba was not used to interpret this result as normal/abnormal . IPF % (test code = 9513684801) Lab Interpretation (test Abnormal code = 20016-0) [facility] CenterLipid Panel (Total Cholesterol, Triglycerides, HDL)2021-05-16 09:36:18 Test Item Value Reference Range Interpretation Comments CHOL (test code = 157 mg/dL 120-200 6770143002) HDL (test code = 26 mg/dL >50 L 0330703678) HDLC RATIO (test code = See_Comment H [Au tomated message] 8440736099) The system [employer] generated this result transmit levi reference range : <=4.5. The refe rence range was not u sed to interpret th is result as normal/abnormal . TRIG (test code = 146 mg/dL 30-170 9572237588) LDL CHOL (test code = 102 mg/dL See_Comment [Auto mated message] 32263-6) The system [employer] generated this result transmit levi reference range : <=160. The refe rence range was not u sed to interpret th is result as normal/abnormal . VLDL (test code = 29 mg/dL 5-60 8380073383) Lab Interpretation (test Abnormal code = 92090-9) [facility] CenterGlycosylated Hemoglobin (A1C)2021-05-16 09:22:50 Test Item Value Reference Range Interpretation Comments HGB A1C (test code = 6.2 % 4.0-5.7 H 4548-4) BRANDI (test code = BRANDI) Reference RangesNormal: <5.7%Prediabetes: 5.7 - 6.4%Diabetes: > 6.5% Lab Interpretation (test Abnormal code = 85303-0) [facility] CenterTroponin [id number] 09:19:18 Test Item Value Reference Interpretation Comments Range TROPONIN I (test 0.028 ng/mL See_Comment [Automated code = 1207614316) message] The system which generated this result [...] biotin. Lab Interpretation Normal (test code = 41829-1) [facility]Ban[facility] (NA, K, CL, CO2, GLUCOSE, BUN, CREATININE, CA)2021-05-16 09:08:35 Test Item Value Reference Range Interpretation Comments NA (test code = 134 mmol/L 135-145 L 2152119470) K (test code = 4.3 mmol/L 3.5-5.0 7198244713) CL (test code = 98 mmol/L 98-108 1192516237) CO2 TOTAL (test code = 27 mmol/L 23-31 9457265455) AGAP (test code = 2-16 5146454734) BUN (test code = 28 mg/dL 7-23 H 5419285142) GLUCOSE (test code = 114 mg/dL 70-110 H 5313756322) CREATININE (test code = 4.79 mg/dL 0.50-1.04 H 9855574230) CALCIUM (test code = 8.2 mg/dL 8.6-10.6 L 2696015622) eGFR (test code = mL/min/1.73m2 0863652031) BRANDI (test code = BRANDI) Association of [...] tests). Lab Interpretation Abnormal (test code = 95521-4) [facility] CenterMagnesium [id number] 09:08:35 Test Item Value Reference Range Interpretation Comments MAGNESIUM (test code = 7850637109) 2.2 mg/dL 1.7-2.4 Lab Interpretation (test code = Normal 98144-5) [facility] CenterTroponin [id number] 03:08:26 Test Item Value Reference Interpretation Comments Range TROPONIN I (test 0.019 ng/mL See_Comment [Automated code = 4575663871) message] The system which generated this result [...] biotin. Lab Interpretation Normal (test code = 98996-4) [facility] CenterPhosphorus [id number] 02:56:02 Test Item Value Reference Range Interpretation Comments PHOSPHORUS (test code = 6751790473) 4.5 mg/dL 2.5-5.0 Lab Interpretation (test code = Normal 19563-0) [facility] CenterPO[facility]SE (AUT[facility]ATED)2021-05-16 02:28:15 Test Item Value Reference Range Interpretation Comments POCT GLU (test code = 5613495366) 155 mg/dL 70-110 H Lab Interpretation (test code = Abnormal 92211-2) [facility] CenterThyroid Stimulating Hormone (TSH)2021-05-16 01:56:53 Test Item Value Reference Range Interpretation Comments TSH (test code = See_Comment [Automated message] 0411385980) The system [employer] generated this result transmitted ref erence range: 0.45 - 4 .70 mIU/L. The refe rence range was not u sed to interpret this result as normal/abnor mal. Lab Interpretation (test Normal code = 16701-1) [facility] CenterGlycosylated Hemoglobin (A1C)2021-05-16 01:17:48 Test Item Value Reference Range Interpretation Comments HGB A1C (test code = 6.3 % 4.0-5.7 H 4548-4) BRANDI (test code = BRANDI) Reference RangesNormal: <5.7%Prediabetes: 5.7 - 6.4%Diabetes: > 6.5% Lab Interpretation (test Abnormal code = 08408-9) [facility] CenterN-TERMINAL [id number] 20:42:55 Test Item Value Reference Range Interpretation Comments NT-proBNP (test code 298824 pg/mL See_Comment H [Autom ated = 6525807456) message] The system which generated this result transmitted reference range : <=125. The reference range was not used to interpret this result as normal/abnormal . BRANDI (test code = BRANDI) Biotin has been reported to cause a negative bias, interpret results relative to patient's use of biotin. Lab Interpretation Abnormal (test code = 21973-6) [facility] CenterTROPONIN [id number] 20:28:40 Test Item Value Reference Interpretation Comments Range TROPONIN I (test 0.012 ng/mL See_Comment [Automated code = 5945523370) message] The system which generated this result [...] biotin. Lab Interpretation Normal (test code = 99317-3) [facility] CenterD-[id number] 20:27:34 Test Item Value Reference Interpretation Comments Range D-DIMER (test code = See_Comment H [Autom ated 5179810569) message] The system which generated this result [...] diagnosis. Lab Interpretation Abnormal (test code = 37611-6) [facility] CenterMAGNESIUM2022-02-11 20:17:56 Test Item Value Reference Range Interpretation Comments MAGNESIUM (test code = 8327642571) 1.9 mg/dL 1.7-2.4 Lab Interpretation (test code = Normal 27413-4) [facility] CenterCOMP. METABOLIC PANEL (82820)2021-05-15 20:17:36 Test Item Value Reference Range Interpretation Comments NA (test code = 136 mmol/L 135-145 9627783524) K (test code = 4.2 mmol/L 3.5-5.0 2735691542) CL (test code = 99 mmol/L 98-108 9614607514) CO2 TOTAL (test code = 26 mmol/L 23-31 1622801923) AGAP (test code = 2-16 1492238658) BUN (test code = 24 mg/dL 7-23 H 3709977435) GLUCOSE (test code = 112 mg/dL 70-110 H 9369422139) CREATININE (test code = 3.82 mg/dL 0.50-1.04 H 1888398110) TOTAL BILI (test code = 1.0 mg/dL 0.1-1.7 9427622958) CALCIUM (test code = 8.5 mg/dL 8.6-10.6 L 6557691760) T PROTEIN (test code = 8.6 g/dL 6.3-8.2 H 3318267536) ALBUMIN (test code = 4.2 g/dL 3.5-5.0 3593467036) ALK PHOS (test code = 176 U/L 34-122 H 7978687479) ALTv (test code = 13 U/L 5-35 1742-6) AST(SGOT) (test code = 26 U/L 13-40 9655478616) eGFR (test code = mL/min/1.73m2 9206902754) BRANDI (test code = BRANDI) Association of [...] tests). Lab Interpretation Abnormal (test code = 51313-4) [facility] CenterLIPASE2022-02-11 20:17:15 Test Item Value Reference Range Interpretation Comments LIPASE (test code = 5938486142) 125 U/L 0-220 Lab Interpretation (test code = Normal 36468-5) [facility] CenterPROTHROMBIN TIME / [id number] 20:02:29 Test Item Value Reference Range Interpretation Comments PROTIME PATIENT (test See_Comment [Auto mated message] code = 5964-2) The system [employer] generated this result transmitted ref erence range: 12.0 - 1 4.7 Seconds. The re ference range was not u sed to interpret this result as normal/abnor mal. INR (test code = 6301-6) Nor mal INR <1.1; Warfarin Therap eutic range 2.0 to 3. 0 or 2.5 to 3.5, dep ending upon the indica tions. Lab Interpretation (test Normal code = 93683-1) [facility] WITH [id number] 19:52:47 Test Item Value Reference Range Interpretation [...] (test code = 52.6 fL 39.0-49.9 H 61010-8) RDW-CV (test code = 15.0 % 12.0-15.5 788-0) PLT (test code = See_Comment L [Automated 777-3) message] The sy stem which generated this result transmitted reference range : 166 - 358 10*3/ ?L. The reference r alba was not used to interpret this result as normal/abnormal . MPV (test code = 10.9 fL 9.5-12.9 04195-7) NRBC/100 WBC (test See_Comment [Automat ed code = 4404821853) message] The system which generated this result transmitted reference range : 0.0 - 10.0 /100 WBCs. The refer ence range was not u sed to interpret th is result as normal/abnormal . NRBC x10^3 (test code <0.01 See_Comment [Auto mated = 3702801570) message] The s ystem which generated this result transmitted reference range : 10*3/?L. The reference range was not used to interpret this result as normal/abnormal . GRAN MAT (NEUT) % 74.8 % (test code = 770-8) IMM GRAN % (test code 0.60 % = 9447699350) LYMPH % (test code = 12.4 % 736-9) MONO % (test code = 8.7 % 5905-5) EOS % (test code = 2.6 % 713-8) BASO % (test code = 0.9 % 706-2) GRAN MAT x10^3(ANC) 4.06 10*3/uL 1.88-7.09 (test code = 3304153858) IMM GRAN x10^3 (test 0.03 10*3/uL 0.00-0.06 code = 0019350497) LYMPH x10^3 (test code 0.67 10*3/uL 1.32-3.29 L = 731-0) MONO x10^3 (test code 0.47 10*3/uL 0.33-0.92 = 742-7) EOS x10^3 (test code = 0.14 10*3/uL 0.03-0.39 711-2) BASO x10^3 (test code 0.05 10*3/uL 0.01-0.07 = 704-7) Lab Interpretation Abnormal (test code = 61079-0) [facility] CenterTroponin I.cardiac [Mass/volume] in Serum or [id number] 17:30:00 Test Item Value Reference Range Interpretation Comments Troponin I.cardiac 0.35 See_Comment [Automat ed message] The [Mass/volume] in Serum syste m which generated or Plasma (test code = this result transmitted Troponin I.cardiac reference range: <=0.045. [Mass/volume] in Serum The r eference range was or Plasma) not used to int erpret this result as normal/abnormal . [facility] HermannAbsolute lymphocyte [id number] 11:37:00 Test Item Value Reference Range Interpretation Comments Absolute lymphocyte count (test code = 0.7 0.7-4.9 Absolute lymphocyte count) [facility]annBas[facility] %2019-02-18 11:37:00 Test Item Value Reference Range Interpretation Comments Basophil % (test code = 2.4 See_Comment [Au tomated message] The Basophil %) system which ge nerated this result tra nsmitted reference range : <=1.3. The reference r alba was not used to int erpret this result as normal/abnormal . [facility]annBlood anisocytosis [id number] 11:37:00 Test Item Value Reference Range Interpretation Comments Blood anisocytosis detection (test code 2+ = Blood anisocytosis detection) [facility] count (number/volume)2019-02-18 11:37:00 Test Item Value Reference Range Interpretation Comments Blood erythrocytes count 3.34 3.86-4.86 (number/volume) (test code = Blood erythrocytes count (number/volume)) [facility]annBlood hematocrit (volume fraction)2019-02-18 11:37:00 Test Item Value Reference Range Interpretation Comments Blood hematocrit (volume fraction) 31.8 36.0-45.0 (test code = Blood hematocrit (volume fraction)) [facility] interpretation [id number] 11:37:00 Test Item Value Reference Range Interpretation Comments Blood morphology interpretation Noted narrative (test code = Blood morphology interpretation narrative) [facility]annBlood platelet mean [id number] 11:37:00 Test Item Value Reference Range Interpretation Comments Blood platelet mean volume (test code = 9.8 7.6-11.3 Blood platelet mean volume) [facility] poikilocytosis detection by light [id number] 11:37:00 Test Item Value Reference Range Interpretation Comments Blood poikilocytosis detection by light 1+ microscopy (test code = Blood poikilocytosis detection by light microscopy) [facility]annCalcium [Mass/volume] in Serum or [id number] 11:37:00 Test Item Value Reference Range Interpretation [...] dioxide, total [Moles/volume] in Serum or Plasma) [facility] HermannChemistry [id number] 11:37:00 Test Item Value Reference Range Interpretation Comments Chemistry procedure (test code = 95.3 80-100 Chemistry procedure) [facility]annChloride [Moles/volume] in Serum or [id number] 11:37:00 Test Item Value Reference Range Interpretation Comments Chloride [Moles/volume] in Serum or 98 98-107 Plasma (test code = Chloride [Moles/volume] in Serum or Plasma) [facility]annCreatinine [Mass/volume] in Serum or [id number] 11:37:00 Test Item Value Reference Range Interpretation Comments Creatinine [Mass/volume] in Serum or 7.35 0.55-1.3 Plasma (test code = Creatinine [Mass/volume] in Serum or Plasma) [facility]Glucose [Mass/volume] in Serum or [id number] 11:37:00 Test Item Value Reference Range Interpretation Comments Glucose [Mass/volume] in Serum or 110 74-106 Plasma (test code = Glucose [Mass/volume] in Serum or Plasma) [facility]annMagnesium [Mass/volume] in Serum or [id number] 11:37:00 Test Item Value Reference Range Interpretation Comments Magnesium [Mass/volume] in Serum or 2.4 1.8-2.4 Plasma (test code = Magnesium [Mass/volume] in Serum or Plasma) [facility]annPhosphate [Mass/volume] in Serum or [id number] 11:37:00 Test Item Value Reference Range Interpretation Comments Phosphate [Mass/volume] in Serum or 4.7 2.5-4.9 Plasma (test code = Phosphate [Mass/volume] in Serum or Plasma) [facility]annPotassium [Moles/volume] in Serum or [id number] 11:37:00 Test Item Value Reference Range Interpretation [...] [facility]annUrea nitrogen [Mass/volume] in Serum or [id number] 11:37:00 Test Item Value Reference Range Interpretation Comments Urea nitrogen [Mass/volume] in Serum or 74 7-18 Plasma (test code = Urea nitrogen [Mass/volume] in Serum or Plasma) [facility]annUrine dipstick testing at [id number]-bz-[id number] 11:37:00 Test Item Value Reference Range Interpretation Comments Urine dipstick testing at pmqje-fy-oxnu 2.6 4.3-10.9 (test code = Urine dipstick testing at lfmcx-rg-rnot) [facility]annAlanine aminotransferase [Enzymatic activity/volume] in Serum or Plasma by With P-5'-2019-02-18 00:35:00 Test Item Value Reference Range Interpretation Comments Alanine aminotransferase [Enzymatic 64 12-78 activity/volume] in Serum or Plasma by With P-5'- (test code = Alanine aminotransferase [Enzymatic activity/volume] in Serum or Plasma by With P-5'-) [facility]annAlbumin [Mass/volume] in Serum or Plasma by Bromocresol purple (BCP) dye binding [id number] 00:35:00 Test Item Value Reference Range Interpretation Comments Albumin [Mass/volume] in Serum or 3.6 3.4-5.0 Plasma by Bromocresol purple (BCP) dye binding meth (test code = Albumin [Mass/volume] in Serum or Plasma by Bromocresol purple (BCP) dye binding meth) [facility]annAlkaline phosphatase [Enzymatic activity/volume] in Serum or [id number] 00:35:00 Test Item Value Reference Range Interpretation Comments Alkaline phosphatase [Enzymatic 236 45-117 activity/volume] in Serum or Plasma (test code = Alkaline phosphatase [Enzymatic activity/volume] in Serum or Plasma) [facility] HermannAspartate aminotransferase [Enzymatic activity/volume] in Serum or Plasma by With [id number] 00:35:00 Test Item Value Reference Range Interpretation Comments Aspartate aminotransferase [Enzymatic 48 15-37 activity/volume] in Serum or Plasma by With P-5 (test code = Aspartate aminotransferase [Enzymatic activity/volume] in Serum or Plasma by With P-5) [facility]annBilirubin.direct [Mass/volume] in Serum or [id number] 00:35:00 Test Item Value Reference Range Interpretation Comments Bilirubin.direct 0.2 See_Comment [Automated message] The [Mass/volume] in Serum syste m which generated or Plasma (test code = this result transmitted Bilirubin.direct reference r alba: <=0.2. [Mass/volume] in Serum The r eference range was or Plasma) not used to int erpret this result as emilee l/abnormal. [facility]annBilirubin.total [Mass/volume] in Serum or [id number] 00:35:00 Test Item Value Reference Range Interpretation Comments Bilirubin.total [Mass/volume] in Serum 0.6 0.2-1.0 or Plasma (test code = Bilirubin.total [Mass/volume] in Serum or Plasma) [facility]annINR in Blood by Coagulation [id number] 00:35:00 Test Item Value Reference Range Interpretation Comments INR in Blood by Coagulation assay 1.15 1 (test code = INR in Blood by Coagulation assay) [facility]annNatriuretic peptide.B prohormone N-Terminal [Mass/volume] in Serum or [id number] 00:35:00 Test Item Value Reference Range Interpretation Comments Natriuretic peptide.B prohormone > [id number] N-Terminal [Mass/volume] in Serum or Plasma (test code = Natriuretic peptide.B prohormone N-Terminal [Mass/volume] in Serum or Plasma) [facility] HermannProtein [Mass/volume] in Serum or [id number] 00:35:00 Test Item Value Reference Range Interpretation Comments Protein [Mass/volume] in Serum or 8.0 6.4-8.2 Plasma (test code = Protein [Mass/volume] in Serum or Plasma) [facility] HermannTroponin I.cardiac [Mass/volume] in Serum or [id number] 00:35:00 Test Item Value Reference Range Interpretation Comments Troponin I.cardiac 0.32 See_Comment [Automat ed message] The [Mass/volume] in Serum syste m which generated or Plasma (test code = this result transmitted Troponin I.cardiac reference range: <=0.045. [Mass/volume] in Serum The r eference range was or Plasma) not used to int erpret this result as normal/abnormal . [facility] HermannSerum or plasma sodium measurement (moles/volume)2019-01-26 04:05:00 Test Item Value Reference Range Interpretation Comments Serum or plasma sodium measurement 136 136-145 (moles/volume) (test code = Serum or plasma sodium measurement (moles/volume)) [facility] HermannUrea nitrogen [Mass/volume] in Serum or [id number] 04:05:00 Test Item Value Reference Range Interpretation Comments Urea nitrogen [Mass/volume] in Serum or 52 7-18 Plasma (test code = Urea nitrogen [Mass/volume] in Serum or Plasma) [facility] HermannUrine dipstick testing at [id number]-uo-[id number] 04:05:00 Test Item Value Reference Range Interpretation Comments Urine dipstick testing at ngeuy-xy-zqwj 3.4 4.3-10.9 (test code = Urine dipstick testing at ortnl-fh-hbfs) [facility] HermannAbsolute lymphocyte [id number] 04:05:00 Test Item Value Reference Range Interpretation Comments Absolute lymphocyte count (test code = 0.6 0.7-4.9 Absolute lymphocyte count) [facility] HermannBasophil %2019-01-26 04:05:00 Test Item Value Reference [...] hematocrit (volume fraction)) [facility]annBlood morphology interpretation [id number] 04:05:00 Test Item Value Reference Range Interpretation Comments Blood morphology interpretation Not seen narrative (test code = Blood morphology interpretation narrative) [facility]annBlood platelet mean [id number] 04:05:00 Test Item Value Reference Range Interpretation Comments Blood platelet mean volume (test code = 9.2 7.6-11.3 Blood platelet mean volume) [facility]annCalcium [Mass/volume] in Serum or [id number] 04:05:00 Test Item Value Reference Range Interpretation [...] [Moles/volume] in Serum or Plasma) [facility]annChemistry [id number] 04:05:00 Test Item Value Reference Range Interpretation Comments Chemistry procedure (test code = 98.1 80-100 Chemistry procedure) [facility]annChloride [Moles/volume] in Serum or [id number] 04:05:00 Test Item Value Reference Range Interpretation Comments Chloride [Moles/volume] in Serum or 98 98-107 Plasma (test code = Chloride [Moles/volume] in Serum or Plasma) [facility]annCreatinine [Mass/volume] in Serum or [id number] 04:05:00 Test Item Value Reference Range Interpretation Comments Creatinine [Mass/volume] in Serum or 6.36 0.55-1.3 Plasma (test code = Creatinine [Mass/volume] in Serum or Plasma) [facility] HermannGlucose [Mass/volume] in Serum or [id number] 04:05:00 Test Item Value Reference Range Interpretation Comments Glucose [Mass/volume] in Serum or 251 74-106 Plasma (test code = Glucose [Mass/volume] in Serum or Plasma) [facility]Pot[facility] [Moles/volume] in Serum or [id number] 04:05:00 Test Item Value Reference Range Interpretation Comments Potassium [Moles/volume] in Serum or 4.7 3.5-5.1 Plasma (test code = Potassium [Moles/volume] in Serum or Plasma) [facility] Hospital[facility]Bacterial culture w [id number] 01:55:00 Test Item Value Reference Range Interpretation Comments Bacterial culture w ID NORMAL UPPER (test code = Bacterial RESPIRATORY HARI culture w ID) GROWN. [facility] [id number] 16:07:00 Test Item Value Reference Range Interpretation Comments Bedside Glucose (test code = Bedside 175 65-120 Glucose) [facility] [id number] 05:35:00 Test Item Value Reference Range Interpretation Comments Blood Morphology Blood Morphology Comment (test code = Comment Blood Morphology Comment) [facility] [id number] 05:35:00 Test Item Value Reference Range Interpretation Comments Total Bilirubin (test code = Total 0.5 0.2-1.0 Bilirubin) [facility] [id number] 05:35:00 Test Item Value Reference Range Interpretation Comments Sodium Level (test code = Sodium Level) 137 136-145 [facility] [id number] 05:35:00 Test Item Value Reference Range Interpretation Comments Serum Total Protein (test code = Serum 7.5 6.4-8.2 Total Protein) [facility] [id number] 05:35:00 Test Item Value Reference Range Interpretation Comments Potassium Level (test code = Potassium 4.8 3.5-5.1 Level) [facility] [id number] 05:35:00 Test Item Value Reference Range Interpretation Comments Glucose Level (test code = Glucose 90 74-106 Level) [facility]2019-07-10 05:35:00 Test Item Value Reference Range Interpretation Comments Globulin (test code = Globulin) 4.3 2.3-3.5 [facility]2019-07-10 05:35:00 Test Item Value Reference Range Interpretation Comments Estimat Glomerular 7 See_Comment [Automat ed message] The Filtration Rate (test system which generated code = Estimat this result t ransmitted Glomerular Filtration refere nce range: >=90. Rate) The reference r alba was not used to int erpret this result as normal/abnormal . [facility]2019-07-10 05:35:00 Test Item Value Reference Range Interpretation Comments Creatinine (test code = Creatinine) 6.02 0.55-1.3 [facility]2019-07-10 05:35:00 Test Item Value Reference Range Interpretation Comments Chloride Level (test code = Chloride 102 98-107 Level) [facility]2019-07-10 05:35:00 Test Item Value Reference Range Interpretation Comments Carbon Dioxide Level (test code = 25 21-32 Carbon Dioxide Level) [facility]2019-07-10 05:35:00 Test Item Value Reference Range Interpretation Comments Calcium Level (test code = Calcium 8.1 8.5-10.1 Level) [facility]2019-07-10 05:35:00 Test Item Value Reference Range Interpretation Comments Blood Urea Nitrogen (test code = Blood 43 7-18 Urea Nitrogen) [facility]2019-07-10 05:35:00 Test Item Value Reference Range Interpretation Comments Aspartate Amino Transf (AST/SGOT) (test 36 15-37 code = Aspartate Amino Transf (AST/SGOT)) [facility]2019-07-10 05:35:00 Test Item Value Reference Range Interpretation Comments Alkaline Phosphatase (test code = 252 45-117 Alkaline Phosphatase) [facility]2019-07-10 05:35:00 Test Item Value Reference Range Interpretation Comments Albumin/Globulin Ratio (test code = 0.7 1 1.1-1.8 Albumin/Globulin Ratio) [facility]2019-07-10 05:35:00 Test Item Value Reference Range Interpretation Comments Albumin (test code = Albumin) 3.2 3.4-5.0 [facility]2019-07-10 05:35:00 Test Item Value Reference Range Interpretation Comments Alanine Aminotransferase (ALT/SGPT) 57 12-78 (test code = Alanine Aminotransferase (ALT/SGPT)) [facility]2019-07-10 05:35:00 Test Item Value Reference Range Interpretation Comments White Blood Count (test code = White 2.9 4.3-10.9 Blood Count) [facility]2019-07-10 05:35:00 Test Item Value Reference Range Interpretation Comments Red Cell Distribution Width (test code 17.2 12.1-15.2 = Red Cell Distribution Width) [facility]2019-07-10 05:35:00 Test Item Value Reference Range Interpretation Comments Red Blood Count (test code = Red Blood 3.49 3.86-4.86 Count) [facility]2019-07-10 05:35:00 Test Item Value Reference Range Interpretation Comments Platelet Count (test code = Platelet 116 152-406 Count) [facility]2019-07-10 05:35:00 Test Item Value Reference Range Interpretation Comments Neutrophils % (test code = Neutrophils 49.4 41.7-73.7 %) [facility]2019-07-10 05:35:00 Test Item Value Reference Range Interpretation Comments Monocytes % (test code = Monocytes %) 10.4 3.3-12.3 [facility]2019-07-10 05:35:00 Test Item Value Reference Range Interpretation Comments Mean Platelet Volume (test code = Mean 8.7 7.6-11.3 Platelet Volume) [facility]2019-07-10 05:35:00 Test Item Value Reference Range Interpretation Comments Mean Corpuscular Volume (test code = 98.2 80-100 Mean Corpuscular Volume) [facility]2019-07-10 05:35:00 Test Item Value Reference Range Interpretation Comments Mean Corpuscular Hemoglobin Concent 33.0 32.0-36.0 (test code = Mean Corpuscular Hemoglobin Concent) [facility]2019-07-10 05:35:00 Test Item Value Reference Range Interpretation Comments Mean Corpuscular Hemoglobin (test 32.4 pg 27.0-35.0 code = Mean Corpuscular Hemoglobin) [facility]2019-07-10 05:35:00 Test Item Value Reference Range Interpretation Comments Lymphocytes % (test code = Lymphocytes 30.3 15.3-44.8 %) [facility]2019-07-10 05:35:00 Test Item Value Reference Range Interpretation Comments Hemoglobin (test code = Hemoglobin) 11.3 12.0-15.0 [facility]2019-07-10 05:35:00 Test Item Value Reference Range Interpretation Comments Hematocrit (test code = Hematocrit) 34.3 36.0-45.0 [facility]2019-07-10 05:35:00 Test Item Value Reference Range Interpretation Comments Eosinophils % (test code 8.8 See_Comment [A utomated message] The = Eosinophils %) system [facility] generated this result tra nsmitted reference range : <=4.4. The reference r alba was not used to int erpret this result as normal/abnormal . [facility]2019-07-10 05:35:00 Test Item Value Reference Range Interpretation Comments Basophils % (test code 1.1 See_Comment [Aut omated message] The = Basophils %) system which generated this result tra nsmitted reference range : <=1.3. The reference r alba was not used to int erpret this result as normal/abnormal . [facility]2019-07-10 05:35:00 Test Item Value Reference Range Interpretation Comments Absolute Neutrophil (test code = 1.4 1.8-8.0 Absolute Neutrophil) [facility]2019-07-10 05:35:00 Test Item Value Reference Range Interpretation Comments Absolute Monocytes (CBC) (test code = 0.3 0.1-1.3 Absolute Monocytes (CBC)) [facility]2019-07-10 05:35:00 Test Item Value Reference Range Interpretation Comments Absolute Lymphocytes (CBC) (test code = 0.9 0.7-4.9 Absolute Lymphocytes (CBC)) [facility]2019-07-10 05:35:00 Test Item Value Reference Range Interpretation Comments Absolute Eosinophils 0.3 See_Comment [Autom ated message] The (CBC) (test code = system wh ich generated Absolute Eosinophils this re sult transmitted (CBC)) reference range : <=0.5. The reference r alba was not used to int erpret this result as normal/abnormal . [facility]2019-07-10 05:35:00 Test Item Value Reference Range Interpretation Comments Absolute Basophils 0.0 See_Comment [Automat ed message] The (CBC) (test code = system wh ich generated Absolute Basophils this resu lt transmitted (CBC)) reference range : <=0.5. The reference r alba was not used to int erpret this result as normal/abnormal . [facility]2019-07-09 05:43:00 Test Item Value Reference Range Interpretation Comments Prothrombin Time (test code = 12.9 9.5-12.5 Prothrombin Time) [facility]2019-07-09 05:43:00 Test Item Value Reference Range Interpretation Comments INR International Normalized Ratio 1.10 1 (test code = INR International Normalized Ratio) [facility]2019-07-09 05:43:00 Test Item Value Reference Range Interpretation Comments Triglycerides Level (test code = 89 Triglycerides Level) [facility]2019-07-09 05:43:00 Test Item Value Reference Range Interpretation Comments Phosphorus Level (test code = 6.3 2.5-4.9 Phosphorus Level) [facility]2019-07-09 05:43:00 Test Item Value Reference Range Interpretation Comments Magnesium Level (test code = Magnesium 2.3 1.8-2.4 Level) [facility]2019-07-09 05:43:00 Test Item Value Reference Range Interpretation Comments LDL Cholesterol, Calculated (test code 47 1 = LDL Cholesterol, Calculated) [facility]2019-07-09 05:43:00 Test Item Value Reference Range Interpretation Comments HDL Cholesterol (test code = HDL 57 40-60 Cholesterol) [facility]2019-07-09 05:43:00 Test Item Value Reference Range Interpretation Comments Cholesterol/HDL Ratio (test code = 2.14 1 Cholesterol/HDL Ratio) [facility]2019-07-09 05:43:00 Test Item Value Reference Range Interpretation Comments Cholesterol Level (test code = 122 Cholesterol Level) [facility]2019-07-08 19:49:00 Test Item Value Reference Range Interpretation Comments Troponin I (test code = 0.59 See_Comment [Au tomated message] The Troponin I) system which ge nerated this result tra nsmitted reference range : <=0.045. The reference r alba was not used to int erpret this result as normal/abnormal . [facility]2019-07-08 12:50:00 Test Item Value Reference Range Interpretation Comments Hepatitis B Surface Hepatitis B Surface Antigen (test code = Antigen Hepatitis B Surface Antigen) [facility]2019-07-08 12:50:00 Test Item Value Reference Range Interpretation Comments Hepatitis B Surface Hepatitis B Surface Antibody (test code = Antibody Hepatitis B Surface Antibody) [facility]2019-07-08 12:50:00 Test Item Value Reference Range Interpretation Comments Hepatitis B Core Total Hepatitis B Core Total Antibody (test code = Antibody Hepatitis B Core Total Antibody) [facility]2019-07-08 12:50:00 Test Item Value Reference Range Interpretation Comments Hepatitis C Antibody Hepatitis C Antibody (test code = Hepatitis C Antibody) [facility]2019-07-08 12:50:00 Test Item Value Reference Range Interpretation Comments Hepatitis C Ab Signal/Cutoff Ratio 0.05 ratio (test code = Hepatitis C Ab Signal/Cutoff Ratio) [facility]2019-07-08 07:36:00 Test Item Value Reference Range Interpretation Comments Rapid Troponin I (test 0.66 See_Comment [Aut omated message] The code = Rapid Troponin system which generated I) this result tra nsmitted reference range : <=0.045. The reference r alba was not used to int erpret this result as normal/abnormal . [facility]2019-07-08 07:36:00 Test Item Value Reference Range Interpretation Comments TT-Gow-L-Type Natriuretic Peptide (test 93177 code = JR-Owh-E-Type Natriuretic Peptide) [facility]
[2022-04-01] MEDS ORDERED: MORPHINE 4 MG/ML SYR ONE (18:05)
[2022-04-01] MEDS ORDERED: ONDANSETRON 4 MG/2 ML VIAL ONE (18:05)
[2022-04-01 18:36] LABS: Absolute Lymphocytes (CBC) 0.9 K/uL (0.7-4.9); Hematocrit 27.8 % (36.0-45.0); Lymphocytes % 28.3 % (15.3-44.8); MCV 94.9 fL (80-100); MPV 8.2 fL (7.6-11.3); RBC Red Blood Cell Count 2.93 M/uL (3.86-4.86)
--- NOTE | 2022-04-01 18:52 | RAD REPORT ---
EXAM DESCRIPTION: RAD - Chest Single View - 04/01/2022 6:31 pm CLINICAL HISTORY: CHEST PAIN COMPARISON: Chest Single View dated 01/18/2022; Chest Single View dated 01/08/2022; Chest Single View dated 12/11/2021; Chest Single View dated 12/07/2021; Chest Single View dated 02/20/2020Chest Single Vie w dated 01/18/2022; Chest Single View dated 01/08/2022; Chest Single View dated 12/11/2021; Chest Single View dated 12/07/2021; Chest Single View dated 02/20/2020; Chest For Pe Angio dated 01/18/2022 FINDINGS: Lines: Pacemaker. Lungs: No evidence of edema or pneumonia. Pleural: Unchanged moderate right pleural effusion Cardiac: Cardiomegaly. Annuloplasty. Mediastinum: Within normal limits. Bones: No acute fractures. Other: Sternotomy. IMPRESSION: Chronic moderate right pleural effusion and likely underlying scarring and atelectasis. Left lung is clear.
[2022-04-01 19:36] LABS: Albumin 2.9 g/dL (3.4-5.0); Bilirubin Total 0.4 mg/dL (0.2-1.0); Protein, Total 8.4 g/dL (6.4-8.2)
[2022-04-01 19:37] LABS: Potassium 4.3 mmol/L (3.5-5.1)
[2022-04-01 19:39] LABS: Troponin High Sensitivity 433.5 pg/mL (<58.9)
--- NOTE | 2022-04-01 19:54 | EDPHYS ---
Physician Documentation [facility] Name: Qiana Valdez Age: 66 yrs Sex: Female : 1955 Arrival Date: 04/01/2022 Time: 16:56 Bed 7 Private MD: ED Physician Starr Huang HPI: 04/01 17:06 This 66 yrs old Female presents to ER via EMS with complaints of Chest Pain. sd2 17:06 66 yo F presents via EMS with CC of midsternal CP that started while sitting down to sd2 eat approximately 45 mins [employer]NA[employer]. Denies any radiation of the pain. Endorses associated SOB, nausea and diaphoresis. Pt is also on dialysis MWF and has had prior cardiac bypass, last performed for the second time as a single bypass in June. Denies fever, cough or recent illness. Reports recent palpitations with home monitor reading 160s HR and was seen by Dr. 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 She also complains of lower BP readings over the past week and a half and that EMS reported her initial BP to be 80/40s. . Historical: - Allergies: 17:00 No Known Allergies; hb - PMHx: 17:00 Chronic ischemic heart disease; Diabetes - IDDM; DIALYSIS MWF; ESRD; GERD; High hb Cholesterol; hyperparathyroidism; Hypertension; IRON DEFICIENCY ANEMIA; Myocardial infarction; Pacemaker; - PSHx: 17:00 Coronary artery bypass graft; hb - Immunization history:: Adult Immunizations up to date. - Social history:: Smoking status: Patient denies any tobacco usage or history of. ROS: 17:06 Constitutional: Negative for fever, chills, and weight loss, Eyes: Negative for injury, sd2 pain, redness, and discharge. 17:06 : Negative for dysuria, urinary frequency, hesitancy, urgency and hematuria. MS/Extremity: Negative for injury and deformity, Skin: Negative for injury, rash, and discoloration, Neuro: Negative for headache, numbness and tingling. 17:06 Cardiovascular: Positive for chest pain, palpitations, Negative for edema. 17:06 Respiratory: Positive for shortness of breath, Negative for cough, wheezing. 17:06 Abdomen/GI: Positive for nausea, Negative for abdominal pain, vomiting, diarrhea. Exam: 17:06 Constitutional: This is a well developed, well nourished patient who is awake, alert, sd2 and in no acute distress. Head/Face: Normocephalic, atraumatic. Eyes: EOMI, normal conjunctiva bilaterally Chest/axilla: Normal chest wall appearance and motion. TTP of midsternal area with no associated crepitus. Cardiovascular: Regular rate and rhythm with a normal S1 and S2. No gallops, murmurs, or rubs. 2+ distal pulses. Respiratory: Lungs have equal breath sounds bilaterally, clear to auscultation and percussion. No rales, rhonchi or wheezes noted. No increased work of breathing, no retractions or nasal flaring. Abdomen/GI: Soft, non-tender, with normal bowel sounds. No guarding or rebound. No evidence of tenderness throughout. Skin: Warm, dry with normal turgor. Normal color with no rashes, no lesions, and no evidence of cellulitis. MS/ Extremity: Pulses equal, no cyanosis. Neurovascular intact. Full, normal range of motion. Ambulatory without difficulty. Psych: Awake, alert, with orientation to person, place and time. Behavior, mood, and affect are within normal limits. 20:10 ECG was reviewed by the Attending Physician. NSR, rate 70, ST depressions and TWI in sd2 inferior and lateral leads unchanged from previous EKG Vital Signs: 16:57 BP 121 / 58; Pulse 70; Resp 16; Temp 98; Pulse Ox 97% on R/A; Weight 61.5 kg; Height 5 hb ft. 3 in. (160.02 cm); Pain 8/10; 17:45 BP 116 / 59; Pulse 70; Resp 17; Pulse Ox 99% on R/A; Pain 8/10; hb 19:00 BP 116 / 59; Pulse 72; Pulse Ox 99% ; ko1 20:36 BP 139 / 69; Pulse 70; Resp 17 S; Pulse Ox 95% on 3 lpm NC; as6 16:57 Body Mass Index 24.02 (61.50 kg, 160.02 cm) hb MDM: 16:57 Patient medically screened. sd2 17:06 Differential diagnosis: Differential diagnosis includes but is not limited to: ACS, sd2 DVT/PE, pneumothorax, dissection, musculoskeletal, anxiety, anemia, electrolyte abnormality, pneumonia, CHF, COPD among others. Data reviewed: vital signs, nurses notes. 04/01 17:52 Order name: CBC with Diff; Complete Time: 19:44 sd2 04/01 17:52 Order name: CMP; Complete Time: 20:51 sd2 04/01 17:52 Order name: Troponin High Sensitivity; Complete Time: 20:51 sd2 04/01 17:52 Order name: BNP; Complete Time: 20:51 sd2 04/01 17:52 Order name: XRAY Chest (1 view); Complete Time: 19:44 sd2 04/01 19:55 Order name: SARS-COV-2 Antigen Rapid; Complete Time: 21:10 wm 04/01 17:52 Order name: EKG - Nurse/Tech; Complete Time: 18:17 sd2 Administered Medications: 18:15 Drug: Zofran (Ondansetron) 4 mg Route: IVP; Site: left hand; hb 21:32 Follow up: Response: No adverse reaction as6 18:16 Drug: morphine 4 mg Route: IVP; Infused Over: 4 mins; Site: left hand; hb 21:32 Follow up: Response: No adverse reaction as6 Disposition Summary: 04/01/22 19:53 Hospitalization Ordered Hospitalization Status: Inpatient Admission sd2 Provider: Kalyan Lennon2 Location: Telemetry/MedSur (Inpatient) sd2 Condition: Stable sd2 Problem: new sd2 Symptoms: have improved sd2 Bed/Room [facility] Room Assignment: 418(04/01/22 21:18) mw Diagnosis - Subsequent non-ST elevation (NSTEMI) myocardial infarction sd2 Forms: - Medication Reconciliation Form sd2 - SBAR form sd2 Signatures: Dispatcher [employer] EDMS Gayle Perez RN RN mw Melodie Briggs RN RN Starr Huang MD MD sd2 Reny Hung PA-C PA-C sb4 Erik Santa RN as6 Corrections: (The following items were deleted from the chart) :18 19:53 sd2 mw
--- NOTE | 2022-04-01 19:54 | ER ---
Nurse's Notes [facility] Name: Qiana Valdez Age: 66 yrs Sex: Female : 1955 Arrival Date: 04/01/2022 Time: 16:56 Bed 7 Private MD: Diagnosis: Subsequent non-ST elevation (NSTEMI) myocardial infarction Presentation: 04/01 16:57 Chief complaint: EMS states: Sudden onset substernal chest pressure 8/10 that started hb while sitting at dining table 45 mins ago. Pt reports pain is similar to previous GA. Coronavirus screen: At this time, the client does not indicate any symptoms associated with coronavirus-19. Ebola Screen: No symptoms or risks identified at this time. Initial Sepsis Screen: Does the patient meet any 2 criteria? No. Patient's initial sepsis screen is negative. Does the patient have a suspected source of infection? No. Patient's initial sepsis screen is negative. Risk Assessment: Do you want to hurt yourself or someone else? Patient reports no desire to harm self or others. Onset of symptoms was April 01, 2022. 16:57 Method Of Arrival: EMS: [facility] hb 16:57 Acuity: SIXTO 3 hb Historical: - Allergies: 17:00 No Known Allergies; hb - PMHx: 17:00 Chronic ischemic heart disease; Diabetes - IDDM; DIALYSIS MWF; ESRD; GERD; High hb Cholesterol; hyperparathyroidism; Hypertension; IRON DEFICIENCY ANEMIA; Myocardial infarction; Pacemaker; - PSHx: 17:00 Coronary artery bypass graft; hb - Immunization history:: Adult Immunizations up to date. - Social history:: Smoking status: Patient denies any tobacco usage or history of. Screenin:45 [facility] ED Fall Risk Assessment (Adult) Score/Fall Risk Level 0 - 2 = Low Risk hb Oriented to surroundings, Maintained a safe environment. Abuse screen: Denies threats or abuse. Denies injuries from another. Nutritional screening: No deficits noted. Tuberculosis screening: No symptoms or risk factors identified. Assessment: 17:32 Reassessment: [email or web address] notified [phone], awaiting callback. hb 17:45 General: Appears in no apparent distress. Behavior is calm, cooperative. Pain: Pain hb currently is 8 out of 10 on a pain scale. Neuro: Level of Consciousness is awake, alert, obeys commands, Oriented to person, place, time, situation. Cardiovascular: Reports chest pain, Patient's skin is warm and dry. Respiratory: Respiratory effort is even, unlabored, Respiratory pattern is regular, symmetrical. GI: No signs and/or symptoms were reported involving the gastrointestinal system. : No signs and/or symptoms were reported regarding the genitourinary system. EENT: No signs and/or symptoms were reported regarding the EENT system. Derm: Skin is pink, warm \T\ dry. Musculoskeletal: No signs and/or symptoms reported regarding the musculoskeletal system. 18:44 Reassessment: Patient appears in no apparent distress at this time. Patient and/or hb family updated on plan of care and expected duration. Pain level reassessed. Patient is alert, oriented x 3, equal unlabored respirations, skin warm/dry/pink. 19:33 General: Appears comfortable, Behavior is calm, cooperative. Pain: Pain: Complains of ha1 pain in chest Pain does not radiate. Pain currently is 7 out of 10 on a pain scale. Quality of pain is described as pressure, Pain began gradually. Neuro: Level of Consciousness is awake, alert, obeys commands, Oriented to person, place, time, situation. Cardiovascular: Patient's skin is warm and dry. Respiratory: Respiratory effort is even, unlabored, Respiratory pattern is regular, symmetrical. Respiratory: GI: No signs and/or symptoms were reported involving the gastrointestinal system. GI: Abdomen is round non-distended. : No signs and/or symptoms were reported regarding the genitourinary system. : No signs and/or symptoms were reported regarding the genitourinary system. EENT: No deficits noted. No signs and/or symptoms were reported regarding the EENT system. Derm: Skin is normal. Musculoskeletal: Circulation, motion, and sensation intact. 20:30 Reassessment: Patient and/or family updated on plan of care and expected duration. Pain ha1 level reassessed. Patient is alert, oriented x 3, equal unlabored respirations, skin warm/dry/pink. Vital Signs: 16:57 BP 121 / 58; Pulse 70; Resp 16; Temp 98; Pulse Ox 97% on R/A; Weight 61.5 kg; Height 5 hb ft. 3 in. (160.02 cm); Pain 8/10; 17:45 BP 116 / 59; Pulse 70; Resp 17; Pulse Ox 99% on R/A; Pain 8/10; hb 19:00 BP 116 / 59; Pulse 72; Pulse Ox 99% ; ko1 20:36 BP 139 / 69; Pulse 70; Resp 17 S; Pulse Ox 95% on 3 lpm NC; as6 16:57 Body Mass Index 24.02 (61.50 kg, 160.02 cm) hb ED Course: 16:56 Patient arrived in ED. hb 16:57 Starr Huang MD is Attending Physician. sd2 17:00 Triage completed. hb 17:00 Arm band placed on. hb 17:32 Melodie Briggs, RN is Primary Nurse. hb 17:45 Patient has correct armband on for positive identification. Client placed on continuous hb cardiac and pulse oximetry monitoring. NIBP monitoring applied. 17:45 Patient maintains SpO2 saturation greater than 95% on room air. hb 18:16 Inserted saline lock: 22 gauge in left hand, using aseptic technique. Blood collected. hb 18:32 XRAY Chest (1 view) In Process Unspecified. EDMS 19:52 Kalyan Lennon is Hospitalizing Provider. sd2 21:33 No provider procedures requiring assistance completed. Patient admitted, IV remains in as6 place. Administered Medications: 18:15 Drug: Zofran (Ondansetron) 4 mg Route: IVP; Site: left hand; hb 21:32 Follow up: Response: No adverse reaction as6 18:16 Drug: morphine 4 mg Route: IVP; Infused Over: 4 mins; Site: left hand; hb 21:32 Follow up: Response: No adverse reaction as6 Medication: 17:45 VIS not applicable for this client. hb Outcome: 19:53 Decision to Hospitalize by Provider. sd2 21:32 Admitted to Tele accompanied by tech, via stretcher, with oxygen, with chart, Report as6 called to Viviane DORSEY 21:32 Condition: stable 21:32 Instructed on the need for admit. 21:33 Patient left the ED. as6 Signatures: Dispatcher [employer] EDPR Katt Olguin RN RN Melodie Briggs, RN RN Erik Santa RN RN as6 Starr Huang MD MD sd2 Jodi Moss RN RN ha1 Sara Correa RN RN ko1 Corrections: (The following items were deleted from the chart) 17:06 16:57 Chief complaint: EMS states: Sudden onset substernal chest pressure 8/10 that ss started while sitting at dining table 45 mins ago. Pt reports pain is similar to previous GA, on amoxicillin s/p pacemaker placement hb
--- NOTE | 2022-04-01 20:59 | P.HP ---
Certification for Inpatient Patient admitted to: Inpatient With expected LOS: >2 Midnights Patient will require the following post-hospital care: None Practitioner: I am a practitioner with admitting privileges, knowledge of patient current condition, hospital course, and medical plan of care. Services: Services provided to patient in accordance with Admission requirements found in Title 42 Section 412.3 of the Code of Federal Regulations Patient History Date of Service: 04/02/22 Reason for admission: NSTEMI History of Present Illness: Patient is a 66-year-old female with ESRD on HD MWF, afib, CHF, HTN, NIDDM, CAD, and anemia who presented to the ED with complaints of chest pain. She states that the pain began a few hours prior to arrival and that it feels similar to her previous MIs, like a heaviness in the center of her chest. EKG did not exhibit any significant changes compared to prior. Troponin was elevated at 433.5, although it does appear to be chronically elevated per chart review. Additional labs significant for hemoglobin 9.1, hematocrit 27.8, BNP 862,000. Chest xray showed "chronic moderate right pleural effusion and likely underlying scarring and atelectasis. Left lung is clear." Patient is admitted for further management. Allergies No Known Allergies Allergy (Verified 04/02/22 00:05) Home medications list reviewed: Yes Home Medications: Atorvastatin Calcium [Lipitor] 40 mg PO BEDTIME #30 tab 01/10/22 Aspirin [Aspirin EC 81 MG] 162 mg PO DAILY #60 tab 01/19/22 Amoxicillin 500 mg PO DAILY 04/01/22 Mirtazapine [Remeron] 15 mg PO BEDTIME 04/01/22 Nifedipine [Nifedipine ER] 60 mg PO BID 04/01/22 Sucroferric Oxyhydroxide [Velphoro] 1,000 mg PO TIDWM 04/01/22 Trazodone [Desyrel] 50 mg PO BEDTIME 04/01/22 - Past Medical/Surgical History Diabetic: Yes -: Hypertension -: Type 2 Diabetes Mellitus, Non-Insulin Dependent -: ESRD - MWF -: CAD with prior stent S/P CABG -: Hyperlipidemia -: GERD -: Anemia of chronic disease with iron deficiency -: Hyperparathyroidism -: Diabetic neuropathy -: Triple bypass 2016 -: Pacemaker -: Tubal ligation -: Fistula aneursym reconstruction 4 times -: Bilateral cataract surgery Psychosocial/ Personal History: Lives at home with daughter - Family History Mother -: Heart disease, Diabetes Father -: Heart disease, Diabetes - Social History Smoking Status: Never smoker Alcohol use: No CD- Drugs: No Caffeine use: Yes Place of Residence: Home Physical Examination - Studies Laboratory Data (last 24 hrs) 04/01/22 18:58: Sodium 136, Potassium 4.3, BUN 42 H, Creatinine 4.59 H, Glucose 282 H, Total Bilirubin 0.4, AST 36, ALT 24, Alkaline Phosphatase 158 H 04/01/22 18:15: WBC 3.10 L, Hgb 9.1 L, Hct 27.8 L, Plt Count 113 L Assessment and Plan - Problems (Diagnosis) (1) NSTEMI (non-ST elevated myocardial infarction) Current Visit: Yes Status: Acute (2) CAD (coronary artery disease) Current Visit: Yes Status: Chronic Qualifiers: Coronary Disease-Associated Artery/Lesion type: bypass graft [place] vs. transplanted heart: [place] heart Associated angina: with unspecified form of angina Qualified Code(s): I25.709 - Atherosclerosis of coronary artery bypass graft(s), unspecified, with unspecified angina pectoris (3) COVID-19 Current Visit: Yes Status: Acute (4) Atrial fibrillation Current Visit: Yes Status: Chronic Qualifiers: Atrial fibrillation type: paroxysmal Qualified Code(s): I48.0 - Paroxysmal atrial fibrillation (5) Congestive heart failure Current Visit: Yes Status: Chronic Qualifiers: Heart failure type: systolic Heart failure chronicity: acute on chronic Qualified Code(s): I50.23 - Acute on chronic systolic (congestive) heart failure (6) End-stage renal disease on hemodialysis Current Visit: Yes Status: Chronic (7) Hypertension Current Visit: Yes Status: Chronic Qualifiers: Hypertension type: primary hypertension Qualified Code(s): I10 - Essential (primary) hypertension (8) Type 2 diabetes mellitus Current Visit: Yes Status: Chronic Qualifiers: Diabetes mellitus joint terminal attack controller insulin use: without joint terminal attack controller use Diabetes mellitus complication status: with hyperglycemia Qualified Code(s): E11.65 - Type 2 diabetes mellitus with hyperglycemia - Plan Patient is admitted for further management of chest pain/elevated troponin. ACS is unlikely as troponin is chronically elevated, secondary to demand ischemia. Trend serial cardiac enzymes. Cardiology consulted. Heparin drip initiated in case of NSTEMI. NPO at midnight in case for cardiac intervention. Nephrology consulted for ESRD requiring HD. Last session on Tuesday. ACHS accu checks with mild sliding scale insulin. BP control. Monitor on telemetry. Anemia appears stable per chart review, secondary to ESRD. COVID+ however patient she has had a positive result for several months now. Monitor and replete electrolytes per protocol. Reconcile and continue home medications. Full code. Discharge Plan: Home Plan to discharge in: 48 Hours - Advance Directives Does patient have a Living Will: Yes Does patient have a Durable POA for Healthcare: No - Code Status/Comfort Care Code Status Assessed: Yes Code Status: Full Code Physician Review: Patient Assessed, Agree with Above Assessment and Plan Critical Care: No Time Spent Managing Pts Care (In Minutes): 50
[2022-04-01 21:09] LABS: SARS-CoV-2 Antigen Rapid Res Positive (Negative)
[2022-04-01] MEDS ORDERED: INSULIN -REGULAR HUMAN 50 UNIT/0.5 ML ML SQ SCH (21:51)
[2022-04-01] MEDS ORDERED: HEPARIN 5000 UNIT/ML 1 ML VIAL IV SCH (21:51)
[2022-04-01] MEDS ORDERED: ACETAMINOPHEN 500 MG TAB PO PRN (21:51)
[2022-04-01] MEDS ORDERED: HEPARIN/D5W 25,000 UNIT/500 ML BAG IV SCH (22:00)
[2022-04-01] MEDS: MORPHINE 4 MG/ML SYR IV PRN (22:26)
[2022-04-01 22:39] LABS: Protime INR 1.26
[2022-04-01 23:50] VITALS: BMI 25.3
[2022-04-02 02:05] LABS: Creatine Phosphokinase 50 U/L (26-192)
[2022-04-02 02:06] LABS: CKMB Creatine Kinase MB < 1.0 ng/mL (1.0-3.6)
[2022-04-02] MEDS: ONDANSETRON 4 MG/2 ML VIAL IV PRN ×2 (03:31→14:29)
[2022-04-02] MEDS: MORPHINE 4 MG/ML SYR IV PRN ×3 (03:31→21:43)
[2022-04-02] MEDS ORDERED: INSULIN -REGULAR HUMAN 50 UNIT/0.5 ML ML SQ SCH (06:00)
[2022-04-02 06:27] LABS: Absolute Lymphocytes (CBC) 0.7 K/uL (0.7-4.9); Hematocrit 27.5 % (36.0-45.0); Lymphocytes % 31.5 % (15.3-44.8); MCV 94.8 fL (80-100); MPV 8.3 fL (7.6-11.3); RBC Red Blood Cell Count 2.91 M/uL (3.86-4.86)
[2022-04-02 06:56] LABS: Magnesium 2.4 mg/dL (1.6-2.4); Phosphorus 5.2 mg/dL (2.5-4.9); Thyroid Stimulating Hormone 3.36 uIU/mL (0.358-3.740)
[2022-04-02 07:10] LABS: Platelet Estimate DECR; White Blood Cell Scan OK (OK)
[2022-04-02 07:11] LABS: Anisocytosis 1+; Blood Morphology Comment NOTED (NOT SEEN); Polychromasia SLIGHT; Target Cells FEW
[2022-04-02] MEDS: INSULIN -REGULAR HUMAN 50 UNIT/0.5 ML ML SQ SCH ×3 (12:00→21:00)
--- NOTE | 2022-04-02 15:45 | CON ---
Date of Consultation: 04/02/2022 Reason For Consultation: Elevated troponin. History Of Present Illness: A 66-year-old female with history of end-stage renal disease, on hemodia lysis; chronic atrial fibrillation; congestive heart failure; coronary artery disease; hypertension; diabetes; status post CABG in the past, presented with chest pain on the left side. No radiation and she has some shortness of breath, minimal cough. No nausea, vomiting, diarrhea, or diaphoresis. In itial troponin was elevated, but the second one was totally normal. Past Medical History: As outlined above in the HPI. Medications: Refer reconciliation sheet for detailed list. Allergies: NO KNOWN DRUG ALLERGIES. Family History: No premature coronary artery disease or cancer. Social History: She does not smoke or drink, does not use any drugs. Review of Systems: All systems reviewed and they were negative except what is mentioned in HPI. Physical Examination: Vital Signs: Reviewed. Head and Neck: Pupils are equal, reactive to light. Intact eye movements. Mild JVD elevation. No cervical lymphadenopathy. Neck: Supple. Thyroid is not enlarged. Lungs: Decreased breathing sounds. No accessory muscle use or muscle retraction. Heart: Irregularly irregular. No extra sounds. Abdomen: Soft, nontender. Bowel sounds positive. No organomegaly. No masses or hernia. No rigidi ty or rebound. Extremities: No edema, clubbing, cyanosis. Intact pulses. Skin: No rash. Neurologic: Alert, awake, oriented x3. No acute focal deficits appreciated. Investigations: Troponin initial was 433, the second one was 435. BUN is 46, creatinine 4.93, and h emoglobin is 9.1. Assessment/recommendations: 1.Chest pain with elevated troponin. This could be demand versus acute coronary syndrome. I would recommend baby aspirin 81 mg and continue heparin and plan for a Lexiscan nuclear stress test. If it is abnormal, then we will plan for coronary angiogram and please obtain an echocardiogram as well. 2.Shortness of breath due to fluid retention. Consult Nephrology for in-house dialysis. SR/MODL Voice ID: [id number] Report ID: [id number]
--- NOTE | 2022-04-02 16:01 | P.PN ---
Subjective Date of Service: 04/02/22 Chief Complaint: NSTEMI Patient denies any chest pain at the moment. Troponin trended flat. Physical Examination - Vital Signs Temperature: 98.4 F Blood Pressure: 173/78 Pulse: 70 Respirations: 16 Pulse Ox (%): 93 - Studies Laboratory Data (last 24 hrs) 04/01/22 18:58: Sodium 136, Potassium 4.3, BUN 42 H, Creatinine 4.59 H, Glucose 282 H, Total Bilirubin 0.4, AST 36, ALT 24, Alkaline Phosphatase 158 H 04/01/22 18:15: WBC 3.10 L, Hgb 9.1 L, Hct 27.8 L, Plt Count 113 L Assessment And Plan - Current Problems (Diagnosis) (1) COVID-19 Current Visit: Yes Status: Acute (2) NSTEMI (non-ST elevated myocardial infarction) Current Visit: Yes Status: Acute (3) CAD (coronary artery disease) Current Visit: Yes Status: Chronic Qualifiers: Coronary Disease-Associated Artery/Lesion type: bypass graft [place] vs. transplanted heart: [place] heart Associated angina: with unspecified form of angina Qualified Code(s): I25.709 - Atherosclerosis of coronary artery bypass graft(s), unspecified, with unspecified angina pectoris (4) End-stage renal disease on hemodialysis Current Visit: Yes Status: Chronic (5) Chronic diastolic heart failure Current Visit: Yes Status: Acute (6) Pulmonary hypertension Current Visit: Yes Status: Acute (7) Hypertension Current Visit: Yes Status: Chronic Qualifiers: Hypertension type: primary hypertension Qualified Code(s): I10 - Essential (primary) hypertension - Plan Cardiology input appreciated. Troponin trended flat but given patient history of NV could be ACS per Dr. Santamaria. Continue aspirin and heparin Resume home dose Lipitor. Resume home antihypertensives. Cardiology is recommending stress test-hopefully on Tuesday. Obtain echocardiogram. Nephrology consulted for hemodialysis.
[2022-04-02] MEDS ORDERED: cloNIDine HCL 0.1 MG TAB PO PRN (16:52)
--- NOTE | 2022-04-02 22:39 | PN ---
Date of Progress Note: 04/02/2022 Chief Complaint: End-stage renal disease. History Of Present Illness: The patient is admitted to the hospital for COVID pneumonia. She was fo und to have [id number] myocardial infarction. She was consulted by back tufter for elevated t roponin. The patient is a 66-year-old woman with end-stage renal disease, on hemodialysis Tuesday, We , Tuesday, chronic atrial fibrillation, congestive heart failure, coronary artery disease, hype rtension, diabetes, status post CABG in the past, presented with chest pain, which was left-sided wit h no radiation. She had some shortness of breath and minimal cough; nonproductive cough. She denied nausea, vomiting, diarrhea, diaphoresis. Initial troponin was elevated and second troponin was chec ked and was normal. Past Medical History: Multiple medical problems including diabetes mellitus, hypertension, hyperlipi demia, end-stage renal disease, diabetic kidney disease, peripheral neuropathy, coronary artery disea se, atrial fibrillation, congestive heart failure with a diastolic and systolic dysfunction, renal os teodystrophy, anemia in CKD, peripheral neuropathy. Family History: History of hypertension, diabetes, kidney disease. Social History: Denies tobacco, alcohol, or illicit drugs. Physical Examination: General: The patient is awake, alert, and follows commands. Eyes: Anicteric sclerae. Neck: Supple. Lungs: Decreased breath sounds bilaterally. Heart: Irregularly irregular. No pericardial friction rub. Abdomen: Soft, nontender. Extremities: No edema. Neurological: Patient is awake, alert, oriented x3. Review of Systems: General: Denies fever or chills eyes. Eyes: Denies vision changes. Ears, Nose, mouth and Throat: Denies sore throat or earache. Respiratory: Has some shortness of breath with activities. GI: Denies nausea or vomiting. : Denies dysuria or hematuria. Musculoskeletal: Denies muscle aches or joint swelling. Laboratory Data: Hemoglobin 9.1. Sodium 132, potassium 4.0, chloride 92, CO2 31, BUN 46, creatinine 4.93, glucose 290, phosphorus 5.2, calcium 7.9. Troponin 435.7. Recent set of troponin remains diana vated. Impression And Plan: 1.End-stage renal disease, congestive heart failure, chronic. Patient has mild fluid overload. Pat ient will have dialysis and ultrafiltration. 2.Patient was found to have acute coronary syndrome. Elevated troponin was found when she came with chest pain. Patient will have further cardiac workup. Continue p.o. fluid restriction, low-sodium diet. 3.Hyponatremia secondary to volume overload. Continue ultrafiltration with dialysis as tolerated to control congestive heart failure. 4.Hypertension. Continue blood pressure medication. 5.Anemia. Hemoglobin level is 9.1. Monitor hemoglobin level. 6.Hypertension. Blood pressure is elevated. Continue to adjust blood pressure medication. 7.Acute coronary syndrome. Continue beta-kath, further recommendation from Cardiology. 8.Pneumonia. The SpO2 is 90% on 2 L nasal cannula, recommend Pulmonary consult. EB/MODL Voice ID: [id number] Report ID: [id number]
[2022-04-02] MEDS: ATORVASTATIN 40 MG TAB PO SCH (23:51)
[2022-04-02] MEDS: METOPROLOL TAR 50 MG TAB PO SCH (23:51)
[2022-04-02] MEDS: MIRTAZAPINE 15 MG TAB PO SCH (23:52)
[2022-04-02] MEDS: NIFEDIPINE XL 60 MG TABLET PO SCH (23:52)
[2022-04-03] MEDS ORDERED: METOPROLOL TARTRATE 5 MG/5 ML INJ IV ONE ×2 (00:03→00:21)
[2022-04-03] MEDS ORDERED: METOPROLOL TARTRATE 5 MG/5 ML INJ IV STA ×2 (00:20)
[2022-04-03] MEDS ORDERED: MORPHINE 4 MG/ML SYR IV ONE (00:53)
[2022-04-03 01:52] LABS: Absolute Lymphocytes (CBC) 0.9 K/uL (0.7-4.9); Hematocrit 28.7 % (36.0-45.0); Lymphocytes % 28.6 % (15.3-44.8); MPV 7.8 fL (7.6-11.3); RBC Red Blood Cell Count 3.05 M/uL (3.86-4.86)
[2022-04-03 02:25] LABS: Potassium 3.9 mmol/L (3.5-5.1)
[2022-04-03] MEDS: HEPARIN/D5W 25,000 UNIT/500 ML BAG IV PRN (05:56)
[2022-04-03] MEDS: INSULIN -REGULAR HUMAN 50 UNIT/0.5 ML ML SQ SCH ×4 (07:30→20:44)
[2022-04-03] MEDS: NIFEDIPINE XL 60 MG TABLET PO SCH ×2 (08:15→20:43)
[2022-04-03] MEDS: LOSARTAN POTASSIUM 50 MG TABLET PO SCH (08:15)
[2022-04-03] MEDS: METOPROLOL TAR 50 MG TAB PO SCH ×2 (08:15→20:43)
--- NOTE | 2022-04-03 15:35 | P.PN ---
Subjective Date of Service: 04/03/22 Chief Complaint: NSTEMI Patient denies any chest pain at the moment. She currently denies any complaint. Physical Examination - Vital Signs Temperature: 98.0 F Blood Pressure: 131/63 Pulse: 68 Respirations: 18 Pulse Ox (%): 86 - Physical Exam General: Alert, In no apparent distress, Oriented x3 HEENT: Mucous membr. moist/pink Neck: JVD not distended Respiratory: Clear to auscultation bilaterally, Normal air movement Cardiovascular: Regular rate/rhythm, Normal S1 S2 Gastrointestinal: Soft and benign, Non-distended Musculoskeletal: No swelling Integumentary: No rashes, No cyanosis Neurological: Normal strength at 5/5 x4 extr Assessment And Plan - Current Problems (Diagnosis) (1) COVID-19 Current Visit: Yes Status: Acute (2) NSTEMI (non-ST elevated myocardial infarction) Current Visit: Yes Status: Acute (3) CAD (coronary artery disease) Current Visit: Yes Status: Chronic Qualifiers: Coronary Disease-Associated Artery/Lesion type: bypass graft [place] vs. transplanted heart: [place] heart Associated angina: with unspecified form of angina Qualified Code(s): I25.709 - Atherosclerosis of coronary artery bypass graft(s), unspecified, with unspecified angina pectoris (4) End-stage renal disease on hemodialysis Current Visit: Yes Status: Chronic (5) Chronic diastolic heart failure Current Visit: Yes Status: Acute (6) Pulmonary hypertension Current Visit: Yes Status: Acute (7) Hypertension Current Visit: Yes Status: Chronic Qualifiers: Hypertension type: primary hypertension Qualified Code(s): I10 - Essential (primary) hypertension - Plan Patient seen by cardiology. Troponin trended flat but given patient history of [place] could be ACS per Dr. Santamaria. Continue aspirin and heparin Count Lipitor. Continue home antihypertensives. Cardiology is recommending stress test-hopefully on Tuesday. Echocardiogram is pending. Hemodialysis per nephrology. Patient appeared to be asymptomatic from COVID-19 infection.
[2022-04-03] MEDS: MIRTAZAPINE 15 MG TAB PO SCH (20:43)
[2022-04-03] MEDS: ATORVASTATIN 40 MG TAB PO SCH (20:43)
--- NOTE | 2022-04-03 23:39 | PN ---
Date of Progress Note: 04/03/2022 Chief Complaint: Non-ST elevation myocardial infarction. COVID pneumonia. Subjective: The patient has end-stage renal disease, undergoing dialysis on Tuesday, Tuesday, and . She received dialysis yesterday to obtain negative fluid balance. The patient is on multiple blood pressure medication. She has izrmktupd-wt-srksyrn hypertension. Blood pressure has improved and today is stabilizing. Review of Systems: Denies fever, chills. Physical Examination: Lungs: Diminished breath sounds at bases. Heart: S1, S2. Abdomen: Soft. Extremities: No edema. Impression And Plan: 1.COVID pneumonia. Continue treatment per primary team. Patient may be a candidate for steroids. 2.Non-ST elevation myocardial infarction. The patient has multiple medical problems including histo ry of coronary artery disease. Cardiology is following. The patient denies angina and today. 3.Fluid overload controlled with dialysis. 4.Congestive heart failure management with beta-kath and angiotensin-receptor kath. Patient w ill continue p.o. fluid restriction and low-sodium diet. Dialysis will be done on Tuesday. The patie nt is to have a stress test done on Tuesday per Cardiology recommendation. Echocardiogram is pending. 5.Hypertension. Monitor blood pressure closely. GLENYS/EVAN Voice ID: [id number] Report ID: [id number]
[2022-04-04] MEDS: INSULIN -REGULAR HUMAN 50 UNIT/0.5 ML ML SQ SCH ×4 (07:30→19:41)
[2022-04-04] MEDS: LOSARTAN POTASSIUM 50 MG TABLET PO SCH (08:45)
[2022-04-04] MEDS: METOPROLOL TAR 50 MG TAB PO SCH ×2 (08:45→19:21)
[2022-04-04] MEDS: NIFEDIPINE XL 60 MG TABLET PO SCH ×2 (08:46→19:21)
[2022-04-04] MEDS: MORPHINE 4 MG/ML SYR IV PRN ×2 (08:50→19:21)
[2022-04-04] MEDS: HEPARIN/D5W 25,000 UNIT/500 ML BAG IV PRN (14:36)
--- NOTE | 2022-04-04 15:54 | P.PN ---
Subjective Date of Service: 04/04/22 Chief Complaint: NSTEMI Patient has no new complaint except generalized weakness. She is currently on 2 L oxygen by nasal cannula. Physical Examination - Vital Signs Temperature: 96.9 F Blood Pressure: 125/62 Pulse: 70 Respirations: 16 Pulse Ox (%): 93 - Physical Exam General: Alert, In no apparent distress, Oriented x3 HEENT: Mucous membr. moist/pink Neck: JVD not distended Respiratory: Clear to auscultation bilaterally, Normal air movement Cardiovascular: No edema, Regular rate/rhythm, Normal S1 S2 Gastrointestinal: Soft and benign, Non-distended, No tenderness Musculoskeletal: No swelling Integumentary: No rashes Neurological: Normal strength at 5/5 x4 extr Assessment And Plan - Current Problems (Diagnosis) (1) COVID-19 Current Visit: Yes Status: Acute (2) NSTEMI (non-ST elevated myocardial infarction) Current Visit: Yes Status: Acute (3) CAD (coronary artery disease) Current Visit: Yes Status: Chronic Qualifiers: Coronary Disease-Associated Artery/Lesion type: bypass graft [place] vs. transplanted heart: [place] heart Associated angina: with unspecified form of angina Qualified Code(s): I25.709 - Atherosclerosis of coronary artery bypass graft(s), unspecified, with unspecified angina pectoris (4) End-stage renal disease on hemodialysis Current Visit: Yes Status: Chronic (5) Chronic diastolic heart failure Current Visit: Yes Status: Acute (6) Pulmonary hypertension Current Visit: Yes Status: Acute (7) Hypertension Current Visit: Yes Status: Chronic Qualifiers: Hypertension type: primary hypertension Qualified Code(s): I10 - Essential (primary) hypertension - Plan Patient seen by cardiology-Dr. Santamaria. Troponin trended flat but given patient history of [place] could be ACS per Dr. Santamaria. Cardiology recommended echocardiogram and stress test which are ordered for tomorrow. Continue aspirin and heparin Count Lipitor. Continue home antihypertensives. Cardiology is recommending stress test-hopefully on Tuesday. Hemodialysis per nephrology. Patient appeared to be asymptomatic from COVID-19 infection.
[2022-04-04] MEDS: MIRTAZAPINE 15 MG TAB PO SCH (19:20)
[2022-04-04] MEDS: ATORVASTATIN 40 MG TAB PO SCH (19:20)
--- NOTE | 2022-04-05 00:01 | PN ---
Date of Progress Note: 04/04/2022 Review of Systems: Patient was seen by bedside. She continues to have chest pain on and off. Denies having any shortne ss of breath, nausea, vomiting, diarrhea. No other complaints. Review of Systems: Has chest pain as outlined above. No shortness of breath, orthopnea, cough. No nausea, vomiting, di arrhea. All other systems reviewed are negative. Physical Examination: Vital signs: Reviewed. Head and Neck: Pupils are equal, reactive to light. Intact eye movements. No JVD. No cervical lym phadenopathy. Neck: Supple. Thyroid is not enlarged. Lungs: Clear to auscultation bilaterally. No rhonchi, wheezing or crackles. No accessory muscle us e. Heart: Regular rate and rhythm with aortic ejection systolic murmur. Abdomen: Soft, nontender. Bowel sounds positive. No organomegaly. No masses or hernia. No rigidi ty or rebound. Extremities: No clubbing, cyanosis. Intact pulses. Skin: No rash. Neurologic: Alert, awake, oriented x3. No acute focal deficits appreciated. Investigation: Labs reviewed. Assessment/recommendation: 1.Chest pain with elevated troponin. She has chronic elevated troponin. She had a heart catheteriz ation back in November with patent grafts. Await on the nuclear stress test and echocardiogram[facility] 2.End-stage renal disease, on hemodialysis. Continue dialysis in- house. The patient appears to be euvolemic. 3.Hypertension. Blood pressure is controlled. SR/MODL Voice ID: [id number] Report ID: [id number]
[2022-04-05] MEDS ORDERED: MAGNES/ALUMIN/SIMET 30ML UCUP PO ONE (00:05)
[2022-04-05] MEDS: MORPHINE 4 MG/ML SYR IV PRN ×3 (00:21→22:01)
--- NOTE | 2022-04-05 01:57 | PN ---
Date of Progress Note: 04/04/2022 Chief Complaint: End-stage renal disease, congestive heart failure with diastolic dysfunction, non-S T elevation myocardial infarction, coronary artery disease, COVID infection. The patient has history of end-stage renal disease. She is undergoing dialysis on Tuesday, Tuesday, and Tuesday. She recei janusz dialysis on Tuesday to obtain metabolic clearance and ultrafiltration was done to control congesti ve heart failure. Patient resumed blood pressure medication. Blood pressure currently is improving. The patient is to have stress test tomorrow. Review of Systems: Denies fever, chills. Denies nausea, vomiting. Physical Examination: Lungs: Diminished breath sounds at the bases. Heart: S1, S2. Abdomen: Soft. Extremities: No edema. Impression And Plan: 1.COVID pneumonia, continue treatment per primary team. 2.Non-ST elevation myocardial infarction. Patient will stress test per cardiology recommendation. 3.History of coronary artery disease. Patient denies angina today. 4.Congestive heart failure with diastolic dysfunction. Dialysis will be done tomorrow to obtain neg ative fluid balance and to control electrolytes. 5.Hypertension. Monitor blood pressure closely. Continue current medication. 6.Anemia of chronic kidney disease. Monitor hemoglobin level and adjust MELA as needed. 7.Renal osteodystrophy. Continue binders. Monitor phosphorus level. GLENYS/EVAN Voice ID: [id number] Report ID: [id number]
[2022-04-05] MEDS: ONDANSETRON 4 MG/2 ML VIAL IV PRN (04:14)
[2022-04-05 04:26] LABS: Absolute Lymphocytes (CBC) 1.7 K/uL (0.7-4.9); Hematocrit 29.2 % (36.0-45.0); Lymphocytes % 32.2 % (15.3-44.8); MPV 8.6 fL (7.6-11.3); RBC Red Blood Cell Count 3.11 M/uL (3.86-4.86)
[2022-04-05 04:59] LABS: Potassium 4.8 mmol/L (3.5-5.1)
[2022-04-05] MEDS: INSULIN -REGULAR HUMAN 50 UNIT/0.5 ML ML SQ SCH ×4 (07:30→21:00)
[2022-04-05] MEDS: SEVELAMER CARBONATE 800 MG TABLET PO SCH ×3 (07:54→16:44)
[2022-04-05] MEDS: NIFEDIPINE XL 60 MG TABLET PO SCH ×2 (09:00→21:00)
[2022-04-05] MEDS: LOSARTAN POTASSIUM 50 MG TABLET PO SCH (09:00)
[2022-04-05] MEDS: METOPROLOL TAR 50 MG TAB PO SCH ×2 (09:10→21:45)
--- NOTE | 2022-04-05 17:09 | P.PN ---
Subjective Date of Service: 04/05/22 Chief Complaint: NSTEMI Patient reports intermittent chest pain, last episode last night. Described as retrosternal. She is currently on baseline 2 L oxygen by nasal cannula. Physical Examination - Vital Signs Temperature: 97.6 F Blood Pressure: 120/59 Pulse: 72 Respirations: 18 Pulse Ox (%): 90 - Physical Exam General: Alert, In no apparent distress HEENT: Mucous membr. moist/pink Neck: JVD not distended Respiratory: Clear to auscultation bilaterally, Normal air movement Cardiovascular: No edema, Regular rate/rhythm, Normal S1 S2 Gastrointestinal: Soft and benign, Non-distended Musculoskeletal: No swelling Integumentary: No rashes Neurological: Normal strength at 5/5 x4 extr Assessment And Plan - Current Problems (Diagnosis) (1) COVID-19 Current Visit: Yes Status: Acute (2) NSTEMI (non-ST elevated myocardial infarction) Current Visit: Yes Status: Acute (3) CAD (coronary artery disease) Current Visit: Yes Status: Chronic Qualifiers: Coronary Disease-Associated Artery/Lesion type: bypass graft [place] vs. transplanted heart: [place] heart Associated angina: with unspecified form of angina Qualified Code(s): I25.709 - Atherosclerosis of coronary artery bypass graft(s), unspecified, with unspecified angina pectoris (4) End-stage renal disease on hemodialysis Current Visit: Yes Status: Chronic (5) Chronic diastolic heart failure Current Visit: Yes Status: Acute (6) Pulmonary hypertension Current Visit: Yes Status: Acute (7) Hypertension Current Visit: Yes Status: Chronic Qualifiers: Hypertension type: primary hypertension Qualified Code(s): I10 - Essential (primary) hypertension - Plan Patient seen by cardiology-Dr. Santamaria. Troponin trended flat but given patient history of [place] could be ACS per Dr. Santamaria. Cardiology recommended echocardiogram and stress test. Awaiting for test to be done hopefully tomorrow. Continue aspirin and heparin drip Continue Lipitor. Continue home antihypertensives. Hemodialysis per nephrology. Patient is asymptomatic from COVID-19 infection. She is stable on her baseline oxygen. Physician Review: Patient Assessed, Agree with Above Assessment and Plan
--- NOTE | 2022-04-05 17:23 | PN ---
Date of Progress Note: 04/05/2022 Subjective: The patient is resting well. Does not have any active resting chest pain. No shortness of breath. No nausea, vomiting, diarrhea. No abdominal pain. No other complaints. Review of Systems: Denies having any active chest pain, shortness of breath, orthopnea, cough. No nausea, vomiting, bette rrhea. No dysuria, polyuria, or urinary urgency. All other systems reviewed and they were negative. Physical Examination: Vital Signs: Temperature is 97.8, pulse 70, breathing at 16, blood pressure is 118/57, saturating 97 %. General: This is a pleasant middle-aged female, in no apparent distress. Head and Neck: Pupils are equal, reactive to light. Intact eye movements. No JVD. No cervical lym phadenopathy. Neck is supple. Thyroid is not enlarged. Lungs: Clear to auscultation bilaterally. No rhonchi, wheezing, or crackles. No accessory muscle u se. Heart: Irregular with aortic systolic ejection murmur. Abdomen: Soft, nontender. Bowel sounds positive. No organomegaly. No masses or hernia. No rigidi ty or rebound. Extremities: No clubbing or cyanosis. Intact pulses. Skin: No rash. Neurologic: Alert, awake, oriented x3. No acute focal deficits appreciated. Investigations: BUN 65, creatinine is 6.7, and hemoglobin is 9.6. Assessment And Recommendations: 1.Chest pain with borderline elevated troponin and known history of coronary artery disease, status post bypass. Await on Lexiscan nuclear stress test. Further recommendation to follow accordingly an d please obtain echocardiogram. 2.Hypertension. Blood pressure is acceptable. Continue home medications. 3.End-stage renal disease, on hemodialysis. SR/MODL Voice ID: [id number] Report ID: [id number]
[2022-04-05] MEDS: IPRATROPIUM BROM 0.5MG/2.5ML NEB SCH (19:11)
[2022-04-05] MEDS: ALBUTEROL 2.5 MG/3 ML NEB SOL NEB SCH (19:11)
--- NOTE | 2022-04-05 20:56 | PN ---
Date of Progress Note: 04/05/2022 Chief Complaint: End-stage renal disease, congestive heart failure with diastolic dysfunction, non-S T elevation myocardial infarction, coronary artery disease, COVID infection. The patient was found to have fluid overload and dilutional hyponatremia. She was scheduled to have dialysis today to obtain negative fluid balance and provide metabolic clearance. Patient denies ches t pain or palpitation. Physical Examination: Lungs: Coarse breath sound at bases. Heart: S1, S2. Abdomen: Soft. Extremities: Minimal edema in both legs. Impression And Plan: 1.COVID pneumonia. Continue treatment per primary team. 2.Non-ST elevation myocardial infarction. Patient is to have further evaluation by executive wellness programs director. 3.Congestive heart failure with diastolic dysfunction, chronic. Patient has some fluid overload. C ontinue p.o. fluid restriction and continue dialysis to control volemia. 4.Hyponatremia, dilutional due to mild to moderate fluid overload. Ultrafiltration will be done to correct electrolytes and correct volemia. 5.Anemia of chronic kidney disease. Monitor hemoglobin level and continue MELA. EB/MODL Voice ID: [id number] Report ID: [id number]
[2022-04-05] MEDS: ATORVASTATIN 40 MG TAB PO SCH (21:45)
[2022-04-05] MEDS: MIRTAZAPINE 15 MG TAB PO SCH (21:45)
[2022-04-05] MEDS: HEPARIN/D5W 25,000 UNIT/500 ML BAG IV PRN (21:45)
--- NOTE | 2022-04-05 22:18 | P.PN ---
Date of Service: 04/06/22 Subjective: no acute events overnight continues with frequent chest pain / pressure stress test today breathing better ROS: A complete review of systems was performed and is negative except as mentioned above Physical Exam: Gen: NAD, AOx3 HEENT: normal conjunctiva, sclera anicteric CV: regular rate & rhythm, no edema Pulm: non-labored respirations on 2L NC, clear bilaterally Abd: soft, non-tender, non-distended MSK: tenderness with palpation of sternum Neuro: normal speech, normal affect, moves all extremities vitals reviewed Problem List NSTEMI COVID-19 h/o CAD, s/p CABG Chronic diastolic CHF h/o infective endocarditis ESRD on HD MWF Diabetes mellitus type 2insulin-dependent Hypertension Hyperlipidemia Iron deficiency anemia Thrombocytopenia, chronic Hyponatremia Patient seen by cardiology-Dr. Santamaria. Troponin trended flat but given patient history of [place] could be ACS per Dr. Santamaria. continues with chest pressure, intermittent over last 2 months Cardiology recommended echocardiogram and stress test stress test to be done tonday Continue aspirin and heparin drip Continue Lipitor. Continue home antihypertensives. Hemodialysis per nephrology. Patient is asymptomatic from COVID-19 infection. She is stable on her baseline oxygen. Code: full Dispo: home, ~1-2 days Time Spent Managing Pts Care (In Minutes): 35
[2022-04-06] MEDS: IPRATROPIUM BROM 0.5MG/2.5ML NEB SCH ×4 (02:00→20:00)
[2022-04-06] MEDS: ALBUTEROL 2.5 MG/3 ML NEB SOL NEB SCH ×4 (02:00→20:00)
[2022-04-06] MEDS: MORPHINE 4 MG/ML SYR IV PRN ×2 (03:18→22:03)
[2022-04-06 05:25] LABS: MCV 94.5 fL (80-100); MPV 8.6 fL (7.6-11.3); RBC Red Blood Cell Count 2.76 M/uL (3.86-4.86)
[2022-04-06 05:35] LABS: Magnesium 2.5 mg/dL (1.6-2.4); Potassium 4.6 mmol/L (3.5-5.1)
[2022-04-06] MEDS: INSULIN -REGULAR HUMAN 50 UNIT/0.5 ML ML SQ SCH ×4 (07:14→21:00)
[2022-04-06] MEDS: SEVELAMER CARBONATE 800 MG TABLET PO SCH ×3 (07:15→17:15)
[2022-04-06] MEDS ORDERED: REGADENOSON 0.4 MG/5 ML SYR IV ONE (07:47)
[2022-04-06] MEDS: NIFEDIPINE XL 60 MG TABLET PO SCH (10:42)
[2022-04-06] MEDS: METOPROLOL TAR 50 MG TAB PO SCH ×2 (10:42→21:34)
[2022-04-06] MEDS: LOSARTAN POTASSIUM 50 MG TABLET PO SCH (10:42)
[2022-04-06] MEDS: ONDANSETRON 4 MG/2 ML VIAL IV PRN (10:43)
--- NOTE | 2022-04-06 11:03 | RAD REPORT ---
EXAM DESCRIPTION: NM - Rest Stress Cardiac Imaging - 04/06/2022 10:42 am CLINICAL HISTORY: Chest pain. COMPARISON: October 2021 TECHNIQUE: The patient was administered 9.9 mCi of Tc 99m Sestamibi prior to resting SPECT imaging o f the heart. The patient was then administered 29.1 MCi of Tc 99m Sestamibi following exercise or pha rmacologic stress. Multiplanar SPECT images were reviewed. FINDINGS: Small area of diminished radiotracer activity involves the inferior and lateral left ventr icular myocardium on rest and stress images. The left ventricular ejection fraction equals 60% IMPRESSION: Small area of diminished radiotracer activity involves the inferior and lateral left huey tricular myocardium could be secondary to infarction or attenuation from the diaphragm/overlying soft tissue. There is no evidence of stress-induced ischemia
[2022-04-06] MEDS ORDERED: EPOETIN ALFA 10,000 UNIT/ML VIAL IV SCH (13:15)
--- NOTE | 2022-04-06 14:22 | PN ---
Date of Progress Note: 04/06/2022 Subjective: Patient was admitted with non-ST elevation MS. Patient is known to have CAD. Patient i s receiving dialysis. No event. Physical Examination: Vital Signs: Blood pressure 136/64, pulse of 69, afebrile. Chest: Clear to auscultation. Heart: S1, S2. Regular. Abdomen: Soft, nontender. Extremities: No edema. Neurologic: Nonfocal. Laboratory Data: WBC 3, H and H 8.6/26. Sodium 132, potassium 4.6, bicarb 30, BUN 49, creatinine 5. 2, calcium 8.3. Magnesium 2.5. Assessment And Plan: 1.End-stage renal disease. I am going to go ahead and maintain the patient on dialysis. Patient re ceived dialysis yesterday. We will arrange for the patient for tomorrow and we will follow up. 2.Over volume. We will challenge the patient. 3.Hyponatremia secondary to renal failure, will be corrected with dialysis. 4.Anemia of chronic kidney disease. Resume MELA. 5.Secondary hyperparathyroid. Continue Renvela. 6.Chronic endocarditis. Continue her antibiotic. 7.Non-ST elevation myocardial infarction. We will follow up with Cardiology. Patient had a stress test today. 8.Renal artery stenosis. Blood pressure been controlled, volume being controlled on dialysis. We w ill follow up. LEIGHANN Voice ID: [id number] Report ID: [id number]
--- NOTE | 2022-04-06 18:04 | PN ---
Date of Progress Note: 04/06/2022 Subjective: Seen at bedside, doing well. No further chest pain. Review of Systems: No chest pain, shortness of breath, orthopnea, or cough. No nausea, vomiting, or diarrhea. All othe r systems reviewed and they are negative. Physical Examination: Vital Signs: Reviewed. Head and Neck: Pupils are equal and reactive to light. Intact eye movements. No JVD. No cervical lymphadenopathy. Neck is supple. Thyroid is not enlarged. Lungs: Clear to auscultation bilaterally. No rhonchi, wheezing, or crackles. No accessory muscle u se. Heart: Regular rate and rhythm. No extra sounds. Abdomen: Soft, nontender. Bowel sounds positive. No organomegaly. No masses or hernia. No rigidi ty or rebound. Extremities: No edema, clubbing, or cyanosis. Intact pulses. Skin: No rash. Neurologic: Alert, awake, and oriented x3. No acute focal deficits appreciated. Investigations: A cardiac stress test was negative for ischemia with normal ejection fraction. Assessment/recommendations: 1.Coronary artery disease with chest pain and elevated troponin. She has chronically elevated tropo tenisha. Given the fact that the stress test was negative and recent heart catheterization had shown pat ent grafts, no further cardiac workup is required for chest pain. Can use a long-acting nitrate like Imdur and titrate the dose as needed and Imdur could replace the nifedipine and also recommend to in crease beta-kath for heart rate between 50 and 60 or symptom relief and with the above adjustment can discontinue the nifedipine. 2.End-stage renal disease, on hemodialysis. 3.Hypertension. Blood pressure is controlled. SR/MODL Voice ID: [id number] Report ID: [id number]
[2022-04-06] MEDS: ATORVASTATIN 40 MG TAB PO SCH (21:33)
[2022-04-06] MEDS: MIRTAZAPINE 15 MG TAB PO SCH (21:35)
[2022-04-07 04:40] LABS: Magnesium 2.6 mg/dL (1.6-2.4); Potassium 5.3 mmol/L (3.5-5.1)
[2022-04-07 04:47] LABS: Hematocrit 24.1 % (36.0-45.0); MCV 93.6 fL (80-100); MPV 8.6 fL (7.6-11.3); RBC Red Blood Cell Count 2.58 M/uL (3.86-4.86)
--- NOTE | 2022-04-07 07:17 | TREADPHA ---
DX: CHEST PAIN Date of Study: 04/06/2021 Ht: 5' 3 " Wt: 143 lb 0 oz Consulting Physician: ANASTASIA MEDICATIONS: HEPARIN, COZAAR, LOPRESSOR, PROCARDIA, NOVOLIN, RENVELA, LIPITOR, REMERON, NEB HISTORY: 66 YEAR OLD FEMALE WITH COMPLAINTS OF CHEST PAIN. HISTORY OF END STAGE RENAL DISEASE, DIABETES MELLITUS, HYPERTENSION, ATRIAL FIBRILLATION, PACEMAKER, CONGESTIVE HEART FAILURE, NON ST EVALUATION MYOCARDIAL INFARCTION, CORONARY ARTERY BYPASS GRAFT, DENIES ALCOHOL OR DRUG USE. PHYSICIAL EXAMINATION: RESTING B.P.: 135/66 RESTING H.R.: 70 RESTING EKG: ATIRAL PACED WITH DIFFUSE T WAVE DEPRESSION PROTOCOL: PHARMACOLOGIC EXERCISE TIME: 3:30 B.P. AT PEAK STRESS: 130/50 IMPRESSION: LEXISCAN INJECTED. CARDIOLITE GIVEN PER PROTOCOL. SEE NUCLEAR MEDICINE REPORT. PREMATURE VENTRICULAR COMPLEXES NOTED THROUGHOUT PROCEDURE. NON-DIAGNOSITC ELECTROCARDIOGRAM PART DUE TO ABNORMAL BASELINE ELECTROCARDIOGRAM.
[2022-04-07] MEDS: INSULIN -REGULAR HUMAN 50 UNIT/0.5 ML ML SQ SCH ×4 (07:30→21:00)
[2022-04-07] MEDS: SEVELAMER CARBONATE 800 MG TABLET PO SCH ×4 (08:28→18:02)
[2022-04-07] MEDS: LOSARTAN POTASSIUM 50 MG TABLET PO SCH (08:29)
[2022-04-07] MEDS: METOPROLOL TAR 50 MG TAB PO SCH ×2 (08:29→21:03)
[2022-04-07] MEDS: AMOXICILLIN TRIHYDR 250 MG CAP PO SCH (08:29)
[2022-04-07] MEDS: ISOSORBIDE MONO SR 60 MG TAB PO SCH (08:33)
--- NOTE | 2022-04-07 11:35 | PN ---
Date of Progress Note: 04/07/2022 Subjective: Seen by bedside. Doing clinically well. Chest pain is reproducible and stress test was negative. Review of Systems: No nausea, vomiting, diarrhea. No abdominal pain. No dysuria, polyuria, or urinary urgency. She giron s constant chest wall pain, but no exertional chest pain. All other systems reviewed and they were n egative. Physical Examination: Vital Signs: Temperature is 96.8, pulse 70, breathing at 16, blood pressure is 127/60, saturating 94 % on room air. General: Pleasant middle-aged female, in no apparent distress. Head and Neck: Pupils are equal, reactive to light. Intact eye movements. No JVD. No cervical lym phadenopathy. Neck is supple. Thyroid is not enlarged. Lungs: Clear to auscultation bilaterally. No rhonchi, wheezing, or crackles. No accessory muscle u se. Heart: Regular rate and rhythm. No extra sounds. Abdomen: Soft, nontender. Bowel sounds positive. No organomegaly. No masses or hernia. No rigidi ty or rebound. Extremities: No edema, clubbing, or cyanosis. Intact pulses. Skin: No rash. Neurologic: Alert, awake, oriented x3. No acute focal deficits appreciated. Investigations: Labs were reviewed. Assessment And Recommendations: 1.Chest pain with elevated troponin. This chest pain likely noncardiac. Stress test was negative a nd ejection fraction is about the same on echo. Recommend optimizing the coronary artery disease med ications, specifically beta-kath and coronary vasodilators and the patient can be released and fol low up as outpatient. 2.End-stage renal disease, on hemodialysis. 3.Systolic heart failure that is chronic. Tried to titrate beta- kath and we will further evaluate as followup in the outpatient arena, adjust her heart failure me dications. SR/MODL Voice ID: [id number] Report ID: [id number]
[2022-04-07] MEDS ORDERED: CODEINE 30MG/APAP 300MG TAB PO PRN (12:23)
--- NOTE | 2022-04-07 14:47 | PN ---
Date of Progress Note: 04/07/2022 Subjective: Patient was admitted with chest pain, questionable [id number] CO. Patient had COV ID. Patient's workup including stress test yesterday was negative. Patient had cardiac cath last ad mission, which was clean. Cardiology seeing her. Advice to change nifedipine to nitrate. Patient i s chest pain free. Physical Examination: Vital Signs: Blood pressure 126/63, pulse of 69. Chest: Clear to auscultation. Heart: S1, S2 regular. Abdomen: Soft, nontender. Extremities: No edema. Neurologic: Alert, oriented x3. Nonfocal. Laboratory Data: Hemoglobin 7.9. Sodium 132, potassium 5.3, bicarb 29, BUN 64, creatinine 6.3, calc ium 8.2. Phosphorus for 5.2, magnesium 2.6. Assessment And Plan: 1.End-stage renal disease with hyperkalemia, overvolume. We will do another dialysis today and we w ill follow up. 2.Hyperkalemia will be corrected with dialysis. 3.Hyponatremia will be corrected with dialysis. 4.Renal artery stenosis. Blood pressure been controlled. We will adjust the blood pressure as by C ardiology recommendation. 5.Infective endocarditis, chronic. Continue current antibiotic. Patient will follow up with ID as patient has finished 6-month treatment. 6.[id number] myocardial infarction, unstable angina as by Cardiology. LEIGHANN Voice ID: [id number] Report ID: [id number]
[2022-04-07] MEDS: ATORVASTATIN 40 MG TAB PO SCH (21:03)
[2022-04-07] MEDS: MIRTAZAPINE 15 MG TAB PO SCH (21:04)
--- NOTE | 2022-04-07 22:55 | P.PN ---
Date of Service: 04/07/22 Subjective: no acute events overnight feeling better continues with some chest discomfort, tenderness ROS: A complete review of systems was performed and is negative except as mentioned above Physical Exam: Gen: NAD, AOx3 HEENT: normal conjunctiva, sclera anicteric CV: regular rate & rhythm, no edema Pulm: non-labored respirations on 2L NC, clear bilaterally Abd: soft, non-tender, non-distended MSK: tenderness with palpation of sternum Neuro: normal speech, normal affect, moves all extremities vitals reviewed Problem List NSTEMI COVID-19 h/o CAD, s/p CABG Chronic diastolic CHF h/o infective endocarditis ESRD on HD MWF Diabetes mellitus type 2insulin-dependent Hypertension Hyperlipidemia Iron deficiency anemia Thrombocytopenia, chronic Hyponatremia Patient seen by cardiology-Dr. Santamaria. Troponin trended flat but given patient history of [place] could be ACS per Dr. Santamaria. continues with chest pressure, intermittent over last 2 months Cardiology recommended echocardiogram and stress test stress test negative - heparin drip discontinued echo with RV dilatation CTA chest ordered to r/o PE, will need HD tomorrow Continue aspirin Continue Lipitor. Continue home antihypertensives. Hemodialysis per nephrology. Patient is asymptomatic from COVID-19 infection. She is stable on her baseline oxygen. Code: full Dispo: home, ~1 day Time Spent Managing Pts Care (In Minutes): 25
[2022-04-08 04:14] LABS: Hematocrit 25.2 % (36.0-45.0); MCV 93.4 fL (80-100); RBC Red Blood Cell Count 2.69 M/uL (3.86-4.86)
[2022-04-08 04:15] LABS: MPV 8.1 fL (7.6-11.3)
[2022-04-08 04:27] LABS: Magnesium 2.5 mg/dL (1.6-2.4); Potassium 4.3 mmol/L (3.5-5.1)
--- NOTE | 2022-04-08 07:03 | ECHO ---
HEIGHT: 5 ft 3 in WEIGHT: 143 lb 0 oz DATE OF STUDY: 04/07/[address]: Kalyna Lennon MD 2-DIMENSIONAL: YES M.MODE: YES DOPPLER: YES COLOR FLOW: YES TDS: PORTABLE: YES DEFINITY: BUBBLE STUDY: DIAGNOSIS: ELEVATED TROPONIN CARDIAC HISTORY: CATHERIZATION: YES SURGERY: YES PROSTHETIC VALVE: NO PACEMAKER: YES MEASUREMENTS (cm) DIASTOLIC (NORMALS) SYSTOLIC (NORMALS) IVSd 1.0 (0.6-1.2) LA Diam 3.9 (1.9-4.0) LVEF 50% LVIDd 4.3 (3.5-5.7) LVIDs 3.3 (2.0-3.5) %FS 22% LVPWd 1.0 (0.6-1.2) Ao Diam 2.4 (2.0-3.7) 2 DIMENSIONAL ASSESSMENT: RIGHT ATRIUM: NORMAL LEFT ATRIUM: NORMAL RIGHT VENTRICLE: PACEMAKER WIRE LEFT VENTRICLE: MILD CONCENTRIC LEFT VENTRICULAR HYPERTROPHY TRICUSPID VALVE: SEVERE TRICUSPID REGURGITATION MITRAL VALVE: MILD MITRAL ANNULAR CALCIFICATION WITH MILD MITRAL REGURGITATION PULMONIC VALVE: MODERATE PULMONIC INSUFFICIENCY AORTIC VALVE: NORMAL PERICARDIAL EFFUSION: NONE AORTIC ROOT: NORMAL LEFT VENTRICULAR WALL MOTION: MILD GLOBAL HYPOKINESIS DOPPLER/COLOR FLOW: SEE BELOW COMMENTS: 1. LOW NORMAL LEFT VENTRICULAR EJECTION FRACTION OF 50% 2. MILD GLOBAL HYPOKINESIS 3. SEVERELY DILATED RIGHT VENTRICLE WITH MILD DYSFUNCTION 4. SEVERE TRICUSPID REGURGITATION AND MODERATE PULMONIC INSUFFICIENCY 5. MILD MITRAL REGUGITATION 6. SEVERE PULMONARY HYPERTENSION WITH RIGHT VENTRICULAR SYSTOLIC PRESSURE GREATER THAN 60 mmHg. TECHNOLOGIST: FERDINAND PERRY
[2022-04-08] MEDS: INSULIN -REGULAR HUMAN 50 UNIT/0.5 ML ML SQ SCH ×3 (07:30→16:30)
[2022-04-08] MEDS: LOSARTAN POTASSIUM 50 MG TABLET PO SCH (08:40)
[2022-04-08] MEDS: METOPROLOL TAR 50 MG TAB PO SCH (08:40)
[2022-04-08] MEDS: SEVELAMER CARBONATE 800 MG TABLET PO SCH ×3 (08:40→17:25)
[2022-04-08] MEDS: ISOSORBIDE MONO SR 60 MG TAB PO SCH (08:41)
[2022-04-08] MEDS: AMOXICILLIN TRIHYDR 250 MG CAP PO SCH (08:41)
--- NOTE | 2022-04-08 08:43 | RAD REPORT ---
EXAM DESCRIPTION: CT - Chest For Pe Angio - 04/08/2022 8:10 am CLINICAL HISTORY: r/o PE, RV dilatation COMPARISON: Chest For Pe Angio dated 01/18/2022; Thorax Wo Con dated 01/08/2022; Chest Abd Pelvis Wo Con dated 12/29/2020 TECHNIQUE: Dynamically enhanced axial 3 mm thick images of the chest were obtained during administra tion of <100> mL Isovue 370 IV contrast. Coronal and oblique reconstruction images were generated and reviewed. Exam utilizes a protocol for optimal evaluation of pulmonary arterial tree. Maximum intensity projections 3D imaging was utilized All CT scans are performed using dose optimization technique as appropriate and may include automated exposure control or mA/KV adjustment according to patient size. FINDINGS: Chest Wall: No suspicious thyroid nodules or pathologic lymphadenopathy. Lungs: Portions of the right lung are atelectatic. There is also subpleural thickening likely result of the chronic pleural effusion. Interstitial edema is present. Pleura: Moderate right chronic pleural effusion with increasing areas of pleural based and non pleura l based hypoattenuation. Mediastinum/hadley: Mild left hilar adenopathy is similar. Pulmonary arteries/Aorta: No filling defect identified. No aortic aneurysm. Enlarged main pulmonary a rtery. Heart: No significant pericardial effusion. Cardiomegaly. Pacemaker. Loculated pericardial fluid ante rior to the heart is unchanged. Upper abdomen: Reflux of contrast into the hepatic veins.Left adrenal nodule is unchanged. Bones: No acute abnormality. Body wall edema. IMPRESSION: Negative for pulmonary embolism. Chronic right pleural effusion with increasing areas of nodular hyperdensity. This could represent ei ther hemorrhage into the effusion or possibly a disseminated pleural neoplastic process. Congestive heart failure with interstitial edema. .
[2022-04-08 12:51] VITALS: BP 159/74; TEMP 97.4
--- NOTE | 2022-04-08 16:29 | P.DS ---
Admission Date: 04/01/22 Discharge Date: 04/08/22 Disposition: ROUTINE DISCHARGE Discharge Condition: GOOD Reason for Admission: NSTEMI Consultations: Cardiology - [facility] Nephrology - Manuel Brief History of Present Illness: 66-year-old female with ESRD on HD MWF, afib, CHF, HTN, NIDDM, CAD, and anemia who presented to the ED with complaints of chest pain. She states that the pain began a few hours prior to arrival and that it feels similar to her previous MIs, like a heaviness in the center of her chest. EKG did not exhibit any significant changes compared to prior. Troponin was elevated at 433.5, although it does appear to be chronically elevated per chart review. Additional labs significant for hemoglobin 9.1, hematocrit 27.8, BNP 862,000. Chest xray showed "chronic moderate right pleural effusion and likely underlying scarring and atelectasis. Left lung is clear." Patient is admitted for further management. Hospital Course: Problem List NSTEMI COVID-19 h/o CAD, s/p CABG Chronic diastolic CHF h/o infective endocarditis ESRD on HD MWF Diabetes mellitus type 2insulin-dependent Hypertension Hyperlipidemia Iron deficiency anemia Thrombocytopenia, chronic Hyponatremia Admitted for chest pain and shortness of breath. COVID-19 positive. Cardiology was consulted. No COVID-19 pneumonia on imaging. Troponins trended flat, but given her history, Dr. Santamaria recommended further evaluation. Cardiac stress testing was negative. Echocardiogram was the same as prior with new findings of dilated right ventricle. CTA chest was done on 04/07 to r/o PE, which was negative. Noted chronic right pleural effusion, and some increase in nodular hyperdensity Recommend follow up with Pulmonology, likely repeat CT chest in near future. Cardiology switched nifedipine to imdur and increased metoprolol from 50mg to 100mg twice daily, with hopes to possibly relieve some discomfort. Follow up with Cardiology in the office, in a few weeks, to further titrate these medications as needed. Blood pressure medications were also adjusted by her facility manager. Chest pain improved slightly, breathing was more comfortable, and patient felt better overall. Cardiology and Nephrology were consulted. Patient was deemed stable for discharge. Continue dialysis as scheduled. Vital Signs/Physical Exam: Temp Pulse Resp BP Pulse Ox 97.4 F 70 16 159/74 H 96 04/08/22 12:00 04/08/22 12:00 04/08/22 12:00 04/08/22 12:00 04/08/22 12:00 Physical Exam: Gen: NAD, AOx3 HEENT: normal conjunctiva, sclera anicteric CV: regular rate & rhythm, no edema Pulm: non-labored respirations on 2L NC, clear bilaterally, diminished at right base Abd: soft, non-tender, non-distended MSK: tenderness with palpation of sternum Neuro: normal speech, normal affect, moves all extremities Laboratory Data at Discharge: WBC 3.10 K/uL (4.3-10.9) L 04/08/22 03:39 Hgb 8.5 g/dL (12.0-15.0) L 04/08/22 03:39 Hct 25.2 % (36.0-45.0) L 04/08/22 03:39 Plt Count 108 K/uL (152-406) L 04/08/22 03:39 PT 13.9 SECONDS (9.5-12.5) H 04/01/22 22:19 INR 1.26 04/01/22 22:19 APTT 67.7 SECONDS (24.3-36.9) H 04/06/22 04:11 Sodium 134 mmol/L (136-145) L 04/08/22 03:39 Potassium 4.3 mmol/L (3.5-5.1) D 04/08/22 03:39 BUN 39 mg/dL (7-18) H 04/08/22 03:39 Creatinine 4.76 mg/dL (0.55-1.02) H 04/08/22 03:39 Glucose 113 mg/dL (74-106) H 04/08/22 03:39 Phosphorus 5.2 mg/dL (2.5-4.9) H 04/02/22 06:16 Magnesium 2.5 mg/dL (1.6-2.4) H 04/08/22 03:39 Total Bilirubin 0.4 mg/dL (0.2-1.0) 04/01/22 18:58 AST 36 U/L (15-37) 04/01/22 18:58 ALT 24 U/L (13-56) 04/01/22 18:58 Alkaline Phosphatase 158 U/L (45-117) H 04/01/22 18:58 Triglycerides 51 mg/dL (<150) 04/02/22 06:16 Cholesterol 119 mg/dL (<200) 04/02/22 06:16 HDL Cholesterol 48 mg/dL (40-60) 04/02/22 06:16 Cholesterol/HDL Ratio 2.48 04/02/22 06:16 Home Medications: Atorvastatin Calcium [Lipitor] 40 mg PO BEDTIME #30 tab 01/10/22 Aspirin [Aspirin EC 81 MG] 162 mg PO DAILY #60 tab 01/19/22 Amoxicillin 500 mg PO DAILY 04/01/22 Mirtazapine [Remeron*] 15 mg PO BEDTIME 04/01/22 Sucroferric Oxyhydroxide [Velphoro] 1,000 mg PO TIDWM 04/01/22 Trazodone [Desyrel*] 50 mg PO BEDTIME 04/01/22 Codeine/APAP [Tylenol #3*] 1 tab PO Q8H PRN #10 tab 04/08/22 Isosorbide Mononitrate [Isosorbide Mononitrate ER] 60 mg PO DAILY 30 Days #30 tab 04/08/22 Losartan Potassium 100 mg PO DAILY 30 Days #30 tab 04/08/22 Metoprolol Tartrate 100 mg PO BID 30 Days #60 tab 04/08/22 New Medications: Isosorbide Mononitrate [Isosorbide Mononitrate ER] 60 mg PO DAILY 30 Days #30 tab Losartan Potassium 100 mg PO DAILY 30 Days #30 tab Metoprolol Tartrate 100 mg PO BID 30 Days #60 tab Codeine/APAP [Tylenol #3*] 1 tab PO Q8H PRN #10 tab PRN Reason: Pain Scale 5-7 (Moderate) Physician Discharge Instructions: Admitted for chest pain and shortness of breath. COVID-19 positive. Cardiology was consulted. No COVID-19 pneumonia on imaging. Troponins trended flat, but given her history, Dr. Santamaria recommended further evaluation. Cardiac stress testing was negative. Echocardiogram was the same as prior with new findings of dilated right ventricle. CTA chest was done on 04/07 to r/o PE, which was negative. Noted chronic right pleural effusion, and some increase in nodular hyperdensity Recommend follow up with Pulmonology, likely repeat CT chest in near future. Cardiology switched nifedipine to imdur and increased metoprolol from 50mg to 100mg twice daily, with hopes to possibly relieve some discomfort. Follow up with Cardiology in the office, in a few weeks, to further titrate these medications as needed. Blood pressure medications were also adjusted by her facility manager. Chest pain improved slightly, breathing was more comfortable, and patient felt better overall. Cardiology and Nephrology were consulted. Patient was deemed stable for discharge. Continue dialysis as scheduled. Followup: Rosio Jackson MD [ACTIVE - CAN ADMIT] - 1-2 Weeks (Call for appointment.) Bradley Santamaria MD [ACTIVE - CAN ADMIT] - 1-2 Weeks (Call for appointment.) Robert Knapp MD [Primary Care Provider] - 1 Week (Call for appointment.) Time spent managing pt's care (in minutes): 45
[2022-04-08 18:47] VITALS: O2SAT 99
--- NOTE | 2022-04-09 00:02 | PN ---
Date of Progress Note: 04/08/2022 History: The patient was admitted with chest pain. Cardiac enzyme was negative. Stress test was ne gative. The patient recommendation from Cardiology only no intervention, conventional treatment. Th e patient because of the finding on the echocardiogram with severe pulmonary hypertension, the patien t undergo CT with contrast yesterday to evaluate for PE, which came negative. Physical Examination: Vital Signs: When I saw the patient, blood pressure 159/74, pulse of 70. Chest: Clear to auscultation. Heart: S1, S2, systolic murmur. Abdomen: Soft, nontender. Extremities: No edema. Laboratory Data: Hemoglobin 8.5. Sodium 134, potassium 4.3, bicarb 28, BUN 39, creatinine 4.7, calc ium 8.4, magnesium 2.5. Current Medications: The patient on include, 1.Heparin. 2.Amoxicillin. 3.Epogen. 4.Losartan 100. 5.Isosorbide 60. 6.Clonidine p.r.n. 7.Atorvastatin. 8.Metoprolol. 9.Renvela 2 tablets with each meal. Assessment And Plan: 1.End-stage renal disease, normal volume. I am going to continue the patient on dialysis Tuesday, We , Tuesday. The patient is going to be dialyzed today because of the exposure of contrast. 2.Hypertension, controlled, optimal. Continue current treatment. 3.Renal artery stenosis. No overt volume. Blood pressure being controlled status post stenting. W e will monitor. 4.Hypernatremia, dilutional, will be corrected with dialysis. 5.Coronary artery disease. No active and stable angina. We will follow up with Cardiology. Contin ue nitrate. LISETH/EVAN Voice ID: [id number] Report ID: [id number]
== END 2022-04-08 18:44 | disposition home or self-care (01) | DRG 280 ==
LOC: ER 16:51 → 4TH 20:50
PROVIDERS: ADMIT Internal Medicine; ATTEND Hospitalist
PROC: 5A1D70Z Performance of Urinary Filtration, Intermittent, Less than 6 Hours Per Day (ICD-10-PCS; 2022-04-05)
PROC: 5A1D70Z Performance of Urinary Filtration, Intermittent, Less than 6 Hours Per Day (ICD-10-PCS; 2022-04-07)
PROC: 5A1D70Z Performance of Urinary Filtration, Intermittent, Less than 6 Hours Per Day (ICD-10-PCS; principal; 2022-04-08)
DX: I25.810 Atherosclerosis of coronary artery bypass graft(s) without angina pectoris (principal); I21.4 Non-ST elevation (NSTEMI) myocardial infarction; N18.6 End stage renal disease; U07.1 COVID-19; I13.2 Hypertensive heart and chronic kidney disease with heart failure and with stage 5 chronic kidney disease, or end stage renal disease; I50.32 Chronic diastolic (congestive) heart failure; E87.1 Hypo-osmolality and hyponatremia; E87.0 Hyperosmolality and hypernatremia; I48.19 Other persistent atrial fibrillation; N25.81 Secondary hyperparathyroidism of renal origin; I24.9 Acute ischemic heart disease, unspecified; I27.20 Pulmonary hypertension, unspecified; E11.22 Type 2 diabetes mellitus with diabetic chronic kidney disease; I70.1 Atherosclerosis of renal artery; D63.1 Anemia in chronic kidney disease; E87.5 Hyperkalemia; D50.9 Iron deficiency anemia, unspecified; E78.5 Hyperlipidemia, unspecified; D69.6 Thrombocytopenia, unspecified; E11.40 Type 2 diabetes mellitus with diabetic neuropathy, unspecified; R01.1 Cardiac murmur, unspecified; N25.0 Renal osteodystrophy; I25.2 Old myocardial infarction; Z99.2 Dependence on renal dialysis; Z95.1 Presence of aortocoronary bypass graft; Z95.0 Presence of cardiac pacemaker; Z79.82 Long term (current) use of aspirin; Z79.899 Other long term (current) drug therapy; Z82.49 Family history of ischemic heart disease and other diseases of the circulatory system; Z83.3 Family history of diabetes mellitus; Z84.1 Family history of disorders of kidney and ureter
CPT/HCPCS: 36415; 71045; 71275; 78452; 80048; 80053; 80061; 82550; 82553; 82947; 83735; 83880; 84100; 84443; 84484; 85025; 85027; 85610; 85730; 87811; 90935; 93017; 93306; 94640; 94760; 96374; 96375; 99285; A9500; J1644; J1815; J2250; J2405; J2785; J7613; J7644; Q9967

== ENCOUNTER 2022-05-31 11:37 | Inpatient (IN) | payer OTHER ==
--- OUTSIDE RECORDS SUMMARY | 2022-05-31 12:29 | XMS REPORT | Continuity of Care Document ---
:1955 Author Organization [facility] t Address [address] [facility] [address] [place] [address] Care Team Providers Name Role Phone No ANP, Pcp [facility] Primary Care Physician ANGELA LOCO Attending Clinician Unavail able Fracisco Hayden MD Attending Clinician Doctor Unassigned, [place] Attending Clinician Unavailable Niki Dill RN Attending Clinician Unavailable BRENDA FUENTES Attending Clinician Unavailable FRACISCO HAYDEN Attending Clinician Unavailable Brenda Fuentes MD Attending Clinician ROGER ARAUJO [...] Clinician BILLY LU Attending Clinician Unavailable Kenny TRUJILLO Joss Attending Clinician Kip TRUJILLO, Rony Attending Clinician Shiela TRUJILLO, [place] Attending Clinician León TRUJILLO, Kanwal Attending Clinician Samia TRUJILLO, Mary Kate Christine Attending Clinician Ladarius Jc MD, Clary Resendiz Attending Clinici an Harjeet TRUJILLO, Luh Attending Clinician Logan Russo MD Attending Clinician LOGAN RUSSO Attending Clinician Unavailable Beronica TRUJILLO, Angela Torres Attending Clinician [phone] Mitchel TRUJILLO, Nicola Thomas Attending Clinician Ju TRUJILLO, Krzysztof Biggs Attending Clinician Marissa TRUJILLO, Fadia Smith Attending Clinician Max TRUJILLO, Asad Whitman Attending Clinician [phone] Nikolay TRUJILLO, Vahid Mai Attending Clinician Ellie [...] Clinician Unavailable ANGELA LOCO Admitting Clinician Unavail BILLY [place] Admitting Clinician Unavailable Billy Lu MD Admitting Clinician JAMESON KUO Admitting Clinician Unavailable NEIL THOMAS Admitting Clinician Unavailable Neil Thomas MD Admitting Clinician Payers Payer Name Policy Type Policy Number Effective Date Expiration Date Katelyn MELLO MEDICARE [id number] 2020 00:00:00 MEDICAID OF [place] [id number] 2019 00:00:00 MEDICARE PART A [id number] 2014 \\T\\ B 00:00:00 [place] [id number] 2020 HEALTHCARE/[employer]ARP 00:00:00 Problems Condition Condition Condition Status Onset Resolution Last Treating Co mments Source Name Details Category Date Date Treatment Clinician Date S/P MVR S/P MVR Disease Active Univers (mitral (mitral 09-29 ity of valve valve 00:00: [place] repair) repair) 00 Medical Branch S/P TVR S/P TVR Disease Active Univers (tricuspid (tricuspid 09-29 it y of valve valve 00:00: [place] repair) repair) 00 Medical Branch Endocardit Endocardit Disease Active U nivers is and is and 09-04 ity of heart heart 00:00: [place] valve valve 00 Medical disorders disorders Bran ch in in diseases diseases classified classified elsewhere elsewhere Insomnia Insomnia Disease Active Unive rs due to due to 09-04 ity of other other 00:00: [place] mental mental 00 Medical disorder disorder Branch Decreased Decreased Disease Active Uni vers activities activities - it y of of daily of daily 00:00: [place] living living 00 Medical (ADL) (ADL) Branch Dyslipidem Dyslipidem Disease Active U nivers ia ia 09-04 ity of 00:00: Medical Branch Decreased Decreased Disease Active Uni vers appetite appetite 09-04 ity of 00:00: Medical Branch Seizure Seizure Disease Active Univers 6- ity of 00:00: Medical Branch 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 it y 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 00 Medical depressive depressive Br anch disorder, disorder, without without psychotic psychotic features features Generalize Generalize Disease Active U nivers d anxiety d anxiety 6-03 ity of disorder disorder 00:00: [place] [address] Medical Branch Panic Panic Disease Active Univers attacks attacks 6-03 ity of 00:00: [place] [address] Medical Branch Encounter Encounter Disease Active Uni [...] 4-05 it y of sadi avitia 00:00: [place] malnutriti malnutriti 00 Me dical on on Branch Hematochez Hematochez Disease Active U nivers ia ia 4-04 ity of 00:00: [place] [address] Medical Branch Moderate Moderate Disease Active [facility] [...] 65-70 PASP 65-70 00:00: Me dical 00 [place] PFO PFO Disease Active [facility] (patent (patent 3-17 [facility] foramen foramen 00:00: Medical ovale) ovale) 00 [place] small small Hypothermi Hypothermi Disease Active [facility] a, acute a, acute 3-17 [facility] post-op post-op 00:00: Medical 00 [place] Acute Acute Disease Active [facility] blood loss blood loss 3-17 [facility] k[facility] anemia anemia 00:00: Medical 00 [place] Acute Acute Disease Active [facility] postoperat postoperat 3-17 [facility] cristela pain cristela pain 00:00: Medica l 00 [place] MV MV Disease Active [facility] Endocardit Endocardit 3-17 [facility] is is 00:00: [address] Acute Acute Disease Active [facility] encephalop encephalop 3-12 [facility] athy athy 00:00: [facility] 00 [place] HTN HTN Disease Active [facility] (hypertens (hypertens 3-12 Fel[facility] kes ion), ion), 00:00: Medical chronic chronic 00 [place] arterial arterial SAH SAH Disease Active [facility] (subarachn (subarachn 3-11 [facility] oid oid 00:00: Medical hemorrhage hemorrhage 00 Ce nter ) ) Streptococ Streptococ Disease Active [facility] cus bovis cus bovis 3-07 [facility] infection infection 00:00: [facility] 00 [place] 06/18/21: 06/18/21: Disease Active [facility] t MV Repair MV Repair 3-06 [facility] & TV & TV 00:00: Medical Repair Repair [address] [place] [address] (Russo) (Russo) Pulmonary Pulmonary Disease Active Uni vers hypertensi hypertensi 2-13 it y of on on 00:00: [place] [address] Medical Branch Acute on Acute on Disease Active Unive rs chronic chronic 2-13 ity of respirator [place] failure 00 [facility] with with Branch hypoxia hypoxia Coronary Coronary Disease Active Unive rs artery artery 2-12 ity of disease disease 00:00: [place] involving involving 00 [facility] shishmaref ira shishmaref ira Branch coronary [...] it y of on on 00:00: [place] Medical Branch 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 Hyperkalem Hyperkale Problem 2019-02-19 Memoria ia brett 22:28:00 l Problem [place] 02/19/[address] [facility] Elevated Elevated Condition 2019-02-19 Memoria brain brain 22:28:00 l natriureti natriureti He rmann c peptide c peptide (BNP) (BNP) level level Condition 02/19/[address] [facility] Episode of Episode Condition 2019-02-19 Memoria generalize of 22:28:00 l d weakness generalize He rmann d weakness Condition 02/19/2019 [facility] Hyperkalem Condition 2019-02-19 Memoria ia Hyperkalem 22:28:00 l ia Juanito Condition 02/19/[address] [facility] Hypertensi Hypertens Condition 2019-02-19 Memoria on with ion with 22:28:00 l goal to be goal to be He rmann determined determined Condition 02/19/[address] 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 emoria diabetes diabetes 22:28:00 l mellitus mellitus Freddy n Condition 02/19/2019 DIANE Simont End-stage End-stage Problem 2019-02-19 Memoria renal renal 22:28:00 l disease on disease on He rmann hemodialys hemodialys is is Problem 02/19/[address] [facility] [place] Upper Problem 2019-02-19 Memor ia respirator respirator 22:28:00 l y y Juanito infection infection Problem 02/19/[address] [facility] Elevated Elevated Problem 2019-02-19 Memoria troponin troponin 22:28:00 l level level [place] Problem 02/19/2019 DIANE Salcido Pacemaker Pacemaker Disease [facility] Wears Wears Disease Active [facility] glasses glasses [facility] ESRD (end ESRD (end Disease Active [facility] stage stage Lukimi renal renal Medical disease) disease) Center on [...] Active Univers ALLERGIE Class ity of S [facility] NO KNOWN Allergy Active [facility] ALLERGIE S Family History Family Member Diagnosis Comments Start Date Stop Date Source Natural brother [facility] Natural father [facility] mother [facility] sister [facility] Social History Social Habit Start Date Stop Date Quantity Comments Source History TEGANND Joshua Balderrama spital Alcohol Comment History [facility] Anabaptism Ho spital Alcohol Std Drinks History [facility] Anabaptism Ho spital Alcohol Binge Exposure to 2021-09-19 2021-09-29 Not sure [facility] SARS-CoV-2 00:00:00 14:42:00 [place] Medical (event) Branch Tobacco use and 2020-07-24 2020-07-[address] [facility] Felicita kes exposure 00:00:00 00:00:00 [facility] Social History 2019-02-19 2019-02-19 [facility] sue 22:28:00 22:28:00 Alcohol intake 2018-10-27 2018-10-27 [facility] 00:00:00 00:00:00 non-drinker of alcohol (finding) History SDOH 2018-10-26 2018-10-26 1 [facility] [place] spital Alcohol Frequency 00:00:00 00:00:00 [birth year] [facility] 00:00:00 00:00:00 Smoking Status Start Date Stop Date Source Unknown if ever smoked Universit y [facility] Never smoked tobacco [facility] Medications Ordered Filled Start Stop Current Ordering Indication Dosage Frequency Signature Comments Components Source Medication Medication Date Date Medication? Clinician (SIG) Name Name atorvastati Yes 40mg Take 40 mg Univers n 40 mg 6-28 by mouth ity of tablet 15:14: at [place] [address] bedtime. Medical Branch atorvastati Yes 40mg Take 40 mg Univers n 40 mg 6-28 by mouth ity of tablet 15:14: at [place] [address] bedtime. Medical Branch atorvastati Yes 40mg Take 40 mg Univers n 40 mg 6-28 by mouth ity of tablet 15:14: at [place] [address] bedtime. Medical Branch atorvastati Yes 40mg Take 40 mg Univers n 40 mg 6-28 by mouth ity of tablet 15:14: at [place] [address] bedtime. Medical Branch atorvastati Yes 40mg Take 40 mg Univers n 40 mg 6-28 by mouth ity of tablet 15:14: at [place] [address] bedtime. Medical Branch atorvastati Yes 40mg Take 40 mg Univers n 40 mg 6-28 by mouth ity of tablet 15:14: at [place] [address] bedtime. Medical Branch atorvastati Yes 40mg Take 40 mg Univers n 40 mg 6-28 by mouth ity of tablet 15:14: at [place] [address] bedtime. Medical Branch atorvastati 2021-0 Yes 40mg Take 40 mg Univers n 40 mg 6-28 by mouth ity of tablet 15:14: at [place] bedtime. Medical Branch atorvastati 2021-0 Yes 40mg Take 40 mg Univers n 40 mg 6-28 by mouth ity of tablet 15:14: at [place] bedtime. Medical Branch atorvastati 2021-0 Yes 40mg Take 40 mg Univers n 40 mg 6-28 by mouth ity of tablet 15:14: at [place] bedtime. Medical Branch atorvastati 2021-0 Yes 40mg Take 40 mg Univers n 40 mg 6-28 by mouth ity of tablet 15:14: at [place] bedtime. Medical Branch atorvastati 2021-0 Yes 40mg Take 40 mg Univers n 40 mg 6-28 by mouth ity of tablet 15:14: at [place] bedtime. Medical Branch atorvastati 2021-0 Yes 40mg Take 40 mg Univers n 40 mg 6-28 by mouth ity of tablet 15:14: at [place] bedtime. Medical Branch clopidogreL 2021-0 Yes [id number] 75mg Take 1 Univers 75 mg 6-28 tablet by ity of tablet 00:00: mouth [place] 00 daily. Medical Branch clopidogreL 2021-0 Yes [id number] 75mg Take 1 Univers 75 mg 6-28 tablet by ity of tablet 00:00: mouth [place] 00 daily. Medical Branch clopidogreL 2021-0 Yes [id number] 75mg Take 1 Univers 75 mg 6-28 tablet by ity of tablet 00:00: mouth [place] 00 daily. Medical Branch clopidogreL 2021-0 Yes [id number] 75mg Take 1 Univers 75 mg 6-28 tablet by ity of tablet 00:00: mouth [place] 00 daily. Medical Branch clopidogreL 2-0 Yes [id number] 75mg Take 1 Univers 75 mg 6-28 tablet by ity of tablet 00:00: mouth [place] 00 daily. Medical Branch clopidogreL 2-0 Yes [id number] 75mg Take 1 Univers 75 mg 6-28 tablet by ity of tablet 00:00: mouth [place] 00 daily. Medical Branch clopidogreL 2-0 Yes [id number] 75mg Take 1 Univers 75 mg 6-28 tablet by ity of tablet 00:00: mouth [place] 00 daily. Medical Branch clopidogreL 202-0 Yes [id number] 75mg Take 1 Univers 75 mg 6-28 tablet by ity of tablet 00:00: mouth [place] 00 daily. Medical Branch clopidogreL 2021-0 Yes [id number] 75mg Take 1 Univers 75 mg 6-28 tablet by ity of tablet 00:00: mouth [place] 00 daily. Medical Branch clopidogreL 2021-0 Yes [id number] 75mg Take 1 Univers 75 mg 6-28 tablet by ity of tablet 00:00: mouth [place] 00 daily. Medical Branch clopidogreL 2021-0 Yes [id number] 75mg Take 1 Univers 75 mg 6-28 tablet by ity of tablet 00:00: mouth [place] 00 daily. Medical Branch clopidogreL 2021-0 Yes [id number] 75mg Take 1 Univers 75 mg 6-28 tablet by ity of tablet 00:00: mouth [place] 00 daily. Medical Branch clopidogreL 2021-0 Yes [id number] 75mg Take 1 Univers 75 mg 6-28 [...] [place] 33 times Medical daily. Branch levETIRAcet 2022-0 Yes 500mg Take 500 U nivers am [...] mouth 3 ity of capsule 10:47: (three) [place] 33 times Medical daily. Branch levETIRAcet 0 [...] mouth 2 [place] 33 (two) Medical times [place] daily. NIFEdipine 0 Yes 10mg Take 10 mg U nivers 10 mg 6-03 by mouth 3 ity of capsule 10:47: (three) [place] 33 times Medical daily. Branch levETIRAcet 0 [...] mouth 2 [place] 33 (two) Medical times [place] daily. NIFEdipine 2021-0 Yes 10mg Take 10 mg U nivers 10 mg 6-03 by mouth 3 ity of capsule 10:47: (three) [place] [address] times Medical daily. Branch levETIRAcet 2021-0 Yes [...] mg by ity of 10:47: mouth 2 [place] [address] (two) Medical times [place] daily. NIFEdipine 2021-0 Yes 10mg Take 10 mg U nivers 10 mg 6-03 by mouth 3 ity of capsule 10:47: (three) [place] [address] times Medical daily. Branch levETIRAcet 0 Yes [...] mg by ity of 10:47: mouth 2 [place] [address] (two) Medical times [place] daily. NIFEdipine 2-0 Yes 10mg Take 10 mg U nivers 10 mg 6-03 by mouth 3 ity of capsule 10:47: (three) [place] [address] times Medical daily. Branch levETIRAcet 2021-0 Yes [...] mouth 3 ity of capsule 10:47: (three) [place] 33 times Medical daily. Branch levETIRAcet 2021-0 [...] mg by ity of 10:47: mouth 2 [place] 33 (two) Medical times [place] daily. NIFEdipine 2021-0 Yes 10mg Take 10 mg U nivers 10 mg 6-03 by mouth 3 ity of capsule 10:47: (three) [place] 33 times Medical daily. Branch levETIRAcet 0 [...] mouth 2 [place] 33 (two) Medical times [place] daily. NIFEdipine 2-0 Yes 10mg Take 10 mg U nivers 10 mg 6-03 by mouth 3 ity of capsule 10:47: (three) [place] 33 times Medical daily. Branch levETIRAcet 2021-0 [...] mouth 3 ity of capsule 10:47: (three) [place] 33 times Medical daily. Branch levETIRAcet 0 [...] mouth 3 ity of capsule 10:47: (three) [place] 33 times Medical daily. Branch levETIRAcet 0 [...] and Tuesday. After dialysis mirtazapine 2021-0 Yes [id number] 15mg Take 1 Univers (REMERON) 6-03 tablet by ity o f 15 mg 00:00: mouth at [place] tablet 00 bedtime. Medical Branch traZODone 2021-0 Yes [id number] 50mg Take 1 Un kecia 50 mg 6-03 tablet by ity of tablet 00:00: mouth at [place] 00 bedtime. Medical Branch mirtazapine 2021-0 Yes [id number] 15mg Take 1 Univers (REMERON) 6-03 tablet by ity o f 15 mg 00:00: mouth at [place] tablet 00 bedtime. Medical Branch traZODone 2021-0 Yes [id number] 50mg Take 1 Un kecia 50 mg 6-03 tablet by ity of tablet 00:00: mouth at [place] 00 bedtime. Medical Branch mirtazapine 2021-0 Yes [id number] 15mg Take 1 Univers (REMERON) 6-03 tablet by ity o f 15 mg 00:00: mouth at [place] tablet 00 bedtime. Medical Branch traZODone 2021-0 Yes [id number] 50mg Take 1 Un kecia 50 mg 6-03 tablet by ity of tablet 00:00: mouth at [place] 00 bedtime. Medical Branch mirtazapine 2021-0 Yes [id number] 15mg Take 1 Univers (REMERON) 6-03 tablet by ity o f 15 mg 00:00: mouth at [place] tablet 00 bedtime. Medical Branch traZODone 2021-0 Yes [id number] 50mg Take 1 Un kecia 50 mg 6-03 tablet by ity of tablet 00:00: mouth at [place] 00 bedtime. Medical Branch mirtazapine 2021-0 Yes [id number] 15mg Take 1 Univers (REMERON) 6-03 tablet by ity o f 15 mg 00:00: mouth at [place] tablet 00 bedtime. Medical Branch traZODone 2021-0 Yes [id number] 50mg Take 1 Un kecia 50 mg 6-03 tablet by ity of tablet 00:00: mouth at [place] 00 bedtime. Medical Branch mirtazapine 2021-0 Yes [id number] 15mg Take 1 Univers (REMERON) 6-03 tablet by ity o f 15 mg 00:00: mouth at [place] tablet 00 bedtime. Medical Branch traZODone 2021-0 Yes [id number] 50mg Take 1 Un kecia 50 mg 6-03 tablet by ity of tablet 00:00: mouth at [place] 00 bedtime. Medical Branch mirtazapine 2021-0 Yes [id number] 15mg Take 1 Univers (REMERON) 6-03 tablet by ity o f 15 mg 00:00: mouth at [place] tablet 00 bedtime. Medical Branch traZODone 2021-0 Yes [id number] 50mg Take 1 Un kecia 50 mg 6-03 tablet by ity of tablet 00:00: mouth at [place] 00 bedtime. Medical Branch mirtazapine 2021-0 Yes [id number] 15mg Take 1 Univers (REMERON) 6-03 tablet by ity o f 15 mg 00:00: mouth at [place] tablet 00 bedtime. Medical Branch traZODone 2021-0 Yes [id number] 50mg Take 1 Un kecia 50 mg 6-03 tablet by ity of tablet 00:00: mouth at [place] 00 bedtime. Medical Branch mirtazapine 2021-0 Yes [id number] 15mg Take 1 Univers (REMERON) 6-03 tablet by ity o f 15 mg 00:00: mouth at [place] tablet 00 bedtime. Medical Branch traZODone 2021-0 Yes [id number] 50mg Take 1 Un kecia 50 mg 6-03 tablet by ity of tablet 00:00: mouth at [place] 00 bedtime. Medical Branch mirtazapine 2021-0 Yes [id number] 15mg Take 1 Univers (REMERON) 6-03 tablet by ity o f 15 mg 00:00: mouth at [place] tablet 00 bedtime. Medical Branch traZODone 2-0 Yes [id number] 50mg Take 1 Un kecia 50 mg 6-03 tablet by ity of tablet 00:00: mouth at [place] 00 bedtime. Medical Branch mirtazapine 2-0 Yes [id number] 15mg Take 1 Univers (REMERON) 6-03 tablet by ity o f 15 mg 00:00: mouth at [place] tablet 00 bedtime. Medical Branch traZODone 2021-0 Yes [id number] 50mg Take 1 Un kecia 50 mg 6-03 tablet by ity of tablet 00:00: mouth at [place] 00 bedtime. Medical Branch mirtazapine 2021-0 Yes [id number] 15mg Take 1 Univers (REMERON) 6-03 tablet by ity o f 15 mg 00:00: mouth at [place] tablet 00 bedtime. Medical Branch traZODone 2021-0 Yes [id number] 50mg Take 1 Un kecia 50 mg 6-03 tablet by ity of tablet 00:00: mouth at [place] 00 bedtime. Medical Branch mirtazapine 2021-0 Yes [id number] 15mg Take 1 Univers (REMERON) 6-03 tablet by ity o f 15 mg 00:00: mouth at [place] tablet 00 bedtime. Medical Branch traZODone 2021-0 Yes [id number] 50mg Take 1 Un kecia 50 mg 6-03 tablet by ity of tablet 00:00: mouth at [place] 00 bedtime. Medical Branch amoxicillin 2021-0 Yes 500mg Take 500 U nivers 500 mg 5-24 mg by ity of capsule 00:00: mouth. Medical Branch amoxicillin 2-0 Yes 500mg Take 500 U nivers 500 mg 5-24 mg by ity of capsule 00:00: mouth. Medical Branch amoxicillin 2-0 Yes 500mg Take 500 U nivers 500 mg 5-24 mg by ity of capsule 00:00: mouth. Medical Branch amoxicillin 2-0 Yes 500mg Take 500 U nivers 500 mg 5-24 mg by ity of capsule 00:00: mouth. Medical Branch amoxicillin 2-0 Yes 500mg Take 500 U nivers 500 mg 5-24 mg by ity of capsule 00:00: mouth. Medical Branch amoxicillin 2022-0 Yes 500mg Take 500 U nivers 500 mg 5-24 mg by ity of capsule 00:00: mouth. [place] [address] Medical Branch amoxicillin 2022-0 Yes 500mg Take 500 U nivers 500 mg 5-24 mg by ity of capsule 00:00: mouth. [place] [address] Medical Branch amoxicillin 2022-0 Yes 500mg Take 500 U nivers 500 mg 5-24 mg by ity of capsule 00:00: mouth. [address] amoxicillin 2022-0 Yes 500mg Take 500 U nivers 500 mg 5-24 mg by ity of capsule 00:00: mouth. [address] amoxicillin 2022-0 Yes 500mg Take 500 U nivers 500 mg 5-24 mg by ity of capsule 00:00: mouth. [address] amoxicillin 2022-0 Yes 500mg Take 500 U nivers 500 mg 5-24 mg by ity of capsule 00:00: mouth. [address] amoxicillin 2022-0 Yes 500mg Take 500 U nivers 500 mg 5-24 mg by ity of capsule 00:00: mouth. [address] amoxicillin 2022-0 Yes 500mg Take 500 U nivers 500 mg 5-24 mg by ity of capsule 00:00: mouth. [address] Branch hydrALAZINE 2022-0 Yes 50mg Take 50 mg Univers 50 mg 4-08 by mouth. ity of tablet 00:00: [address] hydrALAZINE 2022-0 Yes 50mg Take 50 mg Univers 50 mg 4-08 by mouth. ity of tablet 00:00: [address] hydrALAZINE 2022-0 Yes 50mg Take 50 mg Univers 50 mg 4-08 by mouth. ity of tablet 00:00: [address] hydrALAZINE 2022-0 Yes 50mg Take 50 mg Univers 50 mg 4-08 by mouth. ity of tablet 00:00: [address] hydrALAZINE 2022-0 Yes 50mg Take 50 mg Univers 50 mg 4-08 by mouth. ity of tablet 00:00: [address] hydrALAZINE 2022-0 Yes 50mg Take 50 mg Univers 50 mg 4-08 by mouth. ity of tablet 00:00: [address] hydrALAZINE 2022-0 Yes 50mg Take 50 mg [...] Medical Branch aspirin 81 2021-0 2021- No [id number] 81mg Take 1 Univers mg chewable 4-08 tablet by it y of tablet 00:00: 04:59 mouth [place] 00 :00 daily for Medical 90 days. Branch clopidogreL 2021-0 2021- No [id number] 75mg Take 1 Univers 75 mg -11 07- tablet by ity of tablet 00:00: 00:00 mouth [place] 00 :00 daily. Medical Branch levETIRAcet 2021-2021- No 250mg Take [address] [facility] (KEPPRA) 07-06 tablet [facility] 250 MG 00:00: 23:59 (250 mg Medical tablet 00 :00 total) by Center mouth 3 (three) times a week after dialysis TUE/ I for 60 days. levETIRAcet 2021-2021- No 250mg Take [address] [...] tablet 35 daily. Center sucroferric Yes 500mg Q.[id number] Take [address] oxyhydroxid 4-02 [id number] mg by L ukes e 500 mg 14:35: 3D mouth 3 Medica l Chew 35 (three) Center times daily. multivitami Yes 1{tbl} QD Take [address] n with 4-02 tablet by [facility] minerals 14:35: mouth Medical tablet 35 daily. Center sucroferric Yes 500mg Q.[id number] Take [address] oxyhydroxid 4-02 [id number] mg by L ukes e 500 mg 14:35: 3D mouth 3 Medica l Chew 35 (three) Center times daily. multivitami Yes 1{tbl} QD Take [address] n with 4-02 tablet by [facility] 14:35: mouth Medical tablet 35 daily. Center sucroferric Yes 500mg Q.[id number] Take [address] oxyhydroxid 4-02 [id number] mg by L ukes e 500 mg 14:35: 3D mouth 3 Medica l Chew 35 (three) Center times daily. multivitami Yes 1{tbl} QD Take [address] n with 4-02 tablet by [facility] 14:35: mouth Medical tablet 35 daily. Center sucroferric Yes 500mg Q.[id number] Take [address] oxyhydroxid 4-02 [id number] mg by L ukes e 500 mg 14:35: 3D mouth 3 Medica l Chew 35 (three) Center times daily. multivitami Yes 1{tbl} QD Take [address] n with 4-02 tablet by [facility] 14:35: mouth Medical tablet 35 daily. Center sucroferric Yes 500mg Q.[id number] Take [address] oxyhydroxid 4-02 [id number] mg by L ukes e 500 mg 14:35: 3D mouth 3 Medica l Chew 35 (three) Center times daily. multivitami 2021-0 Yes 1{tbl} QD Take [address] n with 4-02 tablet by [facility] 14:35: mouth Medical tablet 35 daily. Center sucroferric Yes 500mg Q.[id number] Take [address] oxyhydroxid 4-02 [id number] mg by L ukes e 500 mg 14:35: 3D mouth 3 Medica l Chew 35 (three) Center times daily. multivitami Yes 1{tbl} QD Take [address] n with 4-02 tablet by [facility] 14:35: mouth Medical tablet 35 daily. Center sucroferric Yes 500mg Q.[id number] Take [address] oxyhydroxid 4-02 [id number] mg by L ukes e 500 mg 14:35: 3D mouth 3 Medica l Chew 35 (three) Center times daily. multivitami Yes 1{tbl} QD Take [address] n with 4-02 tablet by [facility] 14:35: mouth Medical tablet 35 daily. Center sucroferric Yes 500mg Q.[id number] Take [address] oxyhydroxid 4- [id number] mg by L ukes e 500 mg 14:35: 3D mouth 3 Medica l Chew 35 (three) Center times daily. aspirin 81 2021- No 81mg QD Take 81 mg [facility]I [facility] 07[facility]- [facility]:07[facility] 00:00 daily. Medical 35 :00 [place] carvediloL 2021- No 12.5mg Take 12.5 [facility] [...] QD Take [address] [facility] (PROCARDIA- 07-04- by mouth Ned es XL) 60 MG 11:07: 00:00 daily. Medic al (OSM) 24 hr 35 :00 Center tablet hydrALAZINE 2021- No 50mg Q.[id number] Take [address] [facility] (APRESOLINE 07-04 [id number] by mouth 3 [facility] ) 50 MG [...] tablet 11:07: 00:00 daily. Medical 35 :00 [place] carvediloL 2021- No 12.5mg Take 12.[address] (COREG) 07-04- mg by [facility] 12.5 MG 11:07: 00:00 mouth 2 Medica l tablet 35 :00 (two) Center times daily with breakfast and dinner. atorvastati No 40mg QD Take [address] [facility] (LIPITOR) 07-04 by mouth [facility] 40 MG 11:07: 00:00 daily. Medical tablet 35 :00 [place] isosorbide 2021- No 30mg QD Take 30 [...] :00 Center tablet hydrALAZINE 2021- No 50mg Q.[id number] Take [address] [facility] (APRESOLINE 07-04 [id number] by mouth 3 [facility] ) 50 MG [...] :00 Center tablet hydrALAZINE 2021- No 50mg Q.[id number] Take [address] [facility] (APRESOLINE -05 08- [id number] by mouth 3 [facility] ) 50 MG [...] EC 07-04 by mouth [facility] tablet 11:07: :00 daily. Medical 35 :00 Center carvediloL No [...] :00 Center tablet hydrALAZINE 2021- No 50mg Q.[id number] Take [address] [facility] (APRESOLINE -05 08- [id number] by mouth 3 [facility] ) 50 MG [...] :00 Center tablet hydrALAZINE 2021- No 50mg Q.[id number] Take [address] [facility] (APRESOLINE 07-04 [id number] by mouth 3 [facility] ) 50 MG [...] EC 07-04 by mouth [facility] tablet 11:07: :00 daily. Medical 35 :00 Center carvediloL No [...] 35 :00 Center tablet hydrALAZINE No 50mg Q.[id number] Take [address] [facility] (APRESOLINE 07-04 [id number] by mouth 3 [facility] ) 50 MG [...] tablet 11:07: 00:00 daily. Medical 35 :00 [place] carvediloL No 12.5mg Take 12.[address] [...] 35 :00 Center tablet hydrALAZINE No 50mg Q.[id number] Take [address] [facility] (APRESOLINE 07-04 [id number] by mouth 3 [facility] ) 50 MG [...] hr 35 :00 Center tablet hydrALAZINE 50mg Q.[id number] Take [address] [facility] (APRESOLINE 07-04 [id number] by mouth 3 [facility] ) 50 MG [...] 8 (eight) hours for 60 days. NIFEdipine 2021-0 2021- No 20mg Take [address] [facility] [...] 8 (eight) hours for 60 days. NIFEdipine 2021-2021- No 20mg Take [address] [facility] (PROCARDIA) [...] 2021- No Use as [facility] regular 4-02 -02 directed. [facility] (HumuLIN 00:00: 00:00 Medical R,NovoLIN 00 :00 Center R) 100 unit/mL injection insulin 2021-0 2021- No Use as [facility] regular 4-02 -02 directed. [facility] (HumuLIN 00:00: 00:00 Medical R,NovoLIN 00 :00 Center R) 100 unit/mL injection insulin 2021-0 2021- No Use as [facility] regular 4-02 -02 directed. [facility] (HumuLIN 00:00: 00:00 Medical R,NovoLIN 00 :00 Center R) 100 unit/mL injection insulin 2021-0 2021- No Use as [facility] regular 4-02 -02 directed. [facility] (HumuLIN 00:00: 00:00 Medical R,NovoLIN 00 :00 Center R) 100 unit/mL injection insulin 2021-0 2021- No Use as [facility] regular 4-02 -02 directed. [facility] (HumuLIN 00:00: 00:00 Medical R,NovoLIN 00 :00 Center R) 100 unit/mL injection insulin 2021-0 2021- No Use as [facility] regular 4-02 -02 directed. [facility] (HumuLIN 00:00: 00:00 Medical R,NovoLIN 00 :00 Center R) 100 unit/mL injection insulin 2021-0 2021- No Use as [facility] regular 4-02 -02 directed. [facility] (HumuLIN 00:00: 00:00 Medical R,NovoLIN 00 :00 Center R) 100 unit/mL injection insulin 2021-0 2021- No Use as [facility] regular 4-02 -02 directed. [facility] (HumuLIN 00:00: 00:00 Medical R,NovoLIN 00 :00 Center R) 100 unit/mL injection insulin 2021-0 2021- No Use as [facility] regular 4-02 -02 directed. [facility] (HumuLIN 00:00: 00:00 Medical R,NovoLIN 00 :00 Center R) 100 unit/mL injection insulin 2021-0 2021- No Use as [facility] regular 4-02 -02 directed. [facility] (HumuLIN 00:00: 00:00 Medical R,NovoLIN [...] Take [address] [facility] (LIPITOR) 01 by mouth [facility] 40 MG 13:18: [...] hr 59 Center tablet hydrALAZINE Yes 50mg Q.[id number] Take [address] [facility] (APRESOLINE 07-03 [id number] by mouth 3 [facility] ) 50 MG [...] MG tablet 59 Center sucroferric Yes 500mg Q.[id number] Take [address] oxyhydroxid 07-03 [id number] mg by L ukes e 500 mg [...] 15 Center tablet hydrALAZINE 0 Yes 50mg Q.[id number] Take [address] [facility] [address] (APRESOLINE 3-30 [id number] by mouth 3 [facility] ) 50 MG [...] MG tablet 15 Center sucroferric Yes 500mg Q.[id number] Take [address] oxyhydroxid 3-30 [id number] mg by L ukes e 500 mg [...] 15 Center tablet hydrALAZINE 0 Yes 50mg Q.[id number] Take [address] [facility] (APRESOLINE 3-30 [id number] by mouth 3 [facility] ) 50 MG [...] MG tablet 15 Center sucroferric Yes 500mg Q.[id number] Take [address] oxyhydroxid 3-30 [id number] mg by L ukes e 500 mg [...] (OSM) 24 hr 18 Center tablet hydrALAZINE Yes 50mg Q.[id number] Take [address] [facility] (APRESOLINE 3-30 [id number] by mouth 3 [facility] ) 50 MG 08:40: 3D (three) Medical tablet 18 times Center daily. multivitami 0 Yes 1{tbl} QD Take [address] [facility] with 3-30 tablet by [facility] minerals 08:40: mouth Medical tablet 18 daily. [place] lisinopriL 0 Yes 5mg QD Take [address] (PRINIVIL,Z 3-30 by mouth Luke s ESTRIL) 5 08:40: daily. Medica l MG tablet 18 [place] sucroferric Yes 500mg Q.90903175 Take [address] oxyhydroxid 3-30 [id number] mg by L ukes e 500 mg 08:40: 3D mouth 3 Medica l Chew 18 (three) Center times daily. atorvastati Yes 40mg QD Take [address] [facility] (LIPITOR) 3-28 by mouth Luke [facility] 40 MG 14:25: daily. Medical tablet [place] isosorbide Yes 30mg QD Take 30 mg [...] hr 01 Center tablet hydrALAZINE Yes 50mg Q.[id number] Take [address] [facility] [address] (APRESOLINE 3-28 [id number] by mouth 3 [facility] ) 50 MG 14:25: 3D (three) Medical tablet 01 times Center daily. multivitami Yes 1{tbl} QD Take [address] [facility] with 3-28 tablet by [facility] 14:25: mouth Medical tablet 01 daily. [place] lisinopriL Yes 5mg QD Take [address] (PRINIVIL,Z 3-28 by mouth Luke s ESTRIL) 5 14:25: daily. Medica l MG tablet Center sucroferric Yes 500mg Q.[id number] Take [address] oxyhydroxid 3-28 [id number] mg by L ukes e 500 mg [...] Take [address] (PROCARDIA- 3- by mouth Luke [facility] XL) 60 MG 09:34: daily. Medica l (OSM) 24 hr 22 Center tablet hydrALAZINE Yes 50mg Q.15010702 Take [address] [facility] (APRESOLINE - [id number] by mouth 3 [facility] ) 50 MG 09:34: 3D (three) Medical tablet 22 times Center daily. multivitami Yes 1{tbl} QD Take [address] [facility] with 3- tablet by [facility] 09:34: mouth Medical tablet 22 daily. Center lisinopriL Yes 5mg QD Take [address] (PRINIVIL,Z 3-28 by mouth Luke s ESTRIL) 5 09:34: daily. Medica l MG tablet 22 Center sucroferric Yes 500mg Q.19458711 Take [address] oxyhydroxid 3-28 [id number] mg by L ukes e 500 mg [...] 20:31: daily. Medica l 49 Center NIFEdipine 2021-0 Yes 60mg QD Take [address] (PROCARDIA- 3-25 by mouth [facility] XL) 60 MG 20:31: daily. Medica l (OSM) 24 hr 49 Center tablet hydrALAZINE 2021-0 Yes 50mg Q.[id number] Take [address] [facility] (APRESOLINE 3-25 [id number] by mouth 3 [facility] ) 50 MG [...] tablet 49 Center sucroferric 0 Yes 500mg Q.[id number] Take [address] oxyhydroxid 3-25 [id number] mg by L ukes e 500 mg [...] 15 Center tablet hydrALAZINE 2021-0 Yes 50mg Q.[id number] Take [address] [facility] (APRESOLINE 3-20 [id number] by mouth 3 [facility] ) 50 MG 18:09: 3D (three) Medical tablet 15 times Center daily. multivitami 0 Yes 1{tbl} QD Take [address] [facility] with 3-20 tablet by [facility] 18:09: mouth Medical tablet 15 daily. [place] lisinopriL 0 Yes 5mg QD Take [address] (PRINIVIL,Z 3-20 by mouth Luke s ESTRIL) 5 18:09: daily. Medica l MG tablet 15 Center sucroferric Yes 500mg Q.[id number] Take [address] oxyhydroxid 3-20 [id number] mg by L ukes e 500 mg [...] hr 15 Center tablet hydrALAZINE Yes 50mg Q.[id number] Take [address] [facility] (APRESOLINE 3-20 [id number] by mouth 3 [facility] ) 50 MG 18:09: 3D (three) Medical tablet 15 times Center daily. multivitami Yes 1{tbl} QD Take [address] [facility] with 3-20 tablet by [facility] 18:09: mouth Medical tablet 15 daily. [place] lisinopriL 0 Yes 5mg QD Take [address] (PRINIVIL,Z 3-20 by mouth Luke s ESTRIL) 5 18:09: daily. Medica l MG tablet 15 Center sucroferric Yes 500mg Q.85650154 Take [address] oxyhydroxid 3-20 [id number] mg by L ukes e 500 mg [...] 3-07 by mouth [facility] tablet 04:45: daily. [address] carvediloL 2021-0 Yes 12.5mg Take 12.[address] (COREG) 3-07 mg by [facility] 12.5 MG 04:45: mouth 2 Medical tablet 04 (two) Center times daily with breakfast and dinner. aspirin 81 2021-0 Yes 81mg QD Take [address] [facility] EC 3-07 by mouth [facility] tablet 04:45: daily. [address] carvediloL 0 Yes 12.5mg Take 12.[address] (COREG) 3-07 mg by [facility] 12.5 MG 04:45: mouth 2 Medical tablet 04 (two) Center times daily with breakfast and dinner. aspirin 81 2021-0 Yes 81mg QD Take [address] MG EC 3-07 by mouth [facility] tablet 04:45: daily. [address] carvediloL 0 Yes 12.5mg Take 12.[address] (COREG) 3-07 mg by [facility] 12.5 MG 04:45: mouth 2 Medical tablet 04 (two) Center times daily with breakfast and dinner. aspirin 81 2021-0 Yes 81mg QD Take [address] MG EC 3-07 by mouth [facility] tablet 04:45: daily. [address] carvediloL 2021-0 Yes 12.5mg Take 12.[address] (COREG) 3-07 mg by [facility] 12.5 MG 04:45: mouth 2 Medical tablet 04 (two) Center times daily with breakfast and dinner. aspirin 81 2021-0 Yes 81mg QD Take [address] MG EC 3-07 by mouth [facility] tablet 04:45: daily. [address] carvediloL 2021-0 Yes 12.5mg Take 12.[address] (COREG) 3-07 mg by [facility] 12.5 MG 04:45: mouth 2 Medical tablet 04 (two) Center times daily with breakfast and dinner. aspirin 81 2021-0 Yes 81mg QD Take [address] MG EC 3-07 by mouth [facility] tablet 04:45: daily. [address] carvediloL 0 Yes 12.5mg Take 12.[address] (COREG) 3-07 mg by [facility] 12.5 MG 04:45: mouth 2 Medical tablet 04 (two) Center times daily with breakfast and dinner. aspirin 81 2021-0 Yes 81mg QD Take [address] MG EC 3-07 by mouth [facility] tablet 04:45: daily. [address] carvediloL Yes 12.5mg Take 12.[address] (COREG) 3-07 mg by [facility] 12.5 MG 04:45: mouth 2 Medical tablet 04 (two) Center times daily with breakfast and dinner. aspirin 81 2021-0 Yes 81mg QD Take [address] MG EC 3-07 by mouth [facility] tablet 04:45: daily. [address] carvediloL 0 Yes 12.5mg Take 12.[address] (COREG) 3-07 mg by [facility] 12.5 MG 04:45: mouth 2 Medical tablet 04 (two) Center times daily with breakfast and dinner. aspirin 81 0 Yes 81mg QD Take [address] MG EC 3-07 by mouth [facility] tablet 04:45: daily. [address] carvediloL Yes 12.5mg Take 12.[address] (COREG) 3-07 mg by [facility] 12.5 MG 04:45: mouth 2 Medical tablet 04 (two) Center times daily with breakfast and dinner. aspirin 81 0 2021- No [id number] 81mg Take 1 [facility] mg chewable 05-23 tablet by it y of tablet 00:00: 04:59 mouth [place] 00 :00 daily for Medical 30 days. Branch clopidogreL 2021-2021- No [id number] 75mg Take 1 [facility] 75 mg -20 06- tablet by ity of tablet 00:00: 04:59 mouth [place] 00 :00 daily for Medical 30 days. Branch isosorbide 2021- No [id number] 30mg Take 1 [facility] mononitrate 05-23 tablet by it y of 30 mg 24 hr 00:00: 04:59 [place] tablet 00 :00 daily for Medical 30 days. Branch lisinopriL 2021- No [id number] 5mg Take 1 [facility] 5 mg tablet 05-23 tablet by it y of 00:00: 04:59 mouth [place] 00 :00 daily for Medical 30 days. Branch vitamin b 2021- No [id number] 1{tbl} Take 1 [facility] complex-vit 05-23 tablet by it y of [place] 00:00: 04:59 mouth [place] c-folic 00 :00 daily for Medical acid 0.8 mg 30 days. Bran ch tablet aspirin 81 2021- No [id number] 81mg Take 1 [facility] mg chewable 05-23 tablet by it y of tablet 00:00: 04:59 mouth [place] 00 :00 daily for Medical 30 days. Branch clopidogreL 2021- No [id number] 75mg Take 1 [facility] 75 mg 05-23 tablet by ity of tablet 00:00: 04:59 mouth [place] 00 :00 daily for Medical 30 days. Branch isosorbide 2021- No [id number] 30mg Take 1 [facility] mononitrate 05-23 tablet by it y of 30 mg 24 hr 00:00: 04:59 [place] tablet 00 :00 daily for Medical 30 days. Branch lisinopriL 2021- No [id number] 5mg Take 1 [facility] 5 mg tablet 05-23 tablet by it y of 00:00: 04:59 mouth [place] 00 :00 daily for Medical 30 days. Branch vitamin b 2021- No [id number] 1{tbl} Take 1 [facility] complex-vit 05-23 tablet by it y of [place] 00:00: 04:59 mouth [place] c-folic 00 :00 daily for Medical acid 0.8 mg 30 days. Bran ch tablet aspirin 81 2021- No [id number] 81mg Take 1 [facility] mg chewable 05-23 tablet by it y of tablet 00:00: 04:59 mouth [place] 00 :00 daily for Medical 30 days. Branch clopidogreL 2021- No [id number] 75mg Take 1 [facility] 75 mg 05-23 tablet by ity of tablet 00:00: 04:59 mouth [place] 00 :00 daily for Medical 30 days. Branch isosorbide 2021- No [id number] 30mg Take 1 [facility] mononitrate 05-23 tablet by it y of 30 mg 24 hr 00:00: 04:59 [place] tablet 00 :00 daily for Medical 30 days. Branch lisinopriL 2021- No [id number] 5mg Take 1 [facility] 5 mg tablet 05-23 tablet by it y of 00:00: 04:59 mouth [place] 00 :00 daily for Medical 30 days. Branch vitamin b 2021- No [id number] 1{tbl} Take 1 [facility] complex-vit 05-23 tablet [...] Take 81 mg [facility] mg chewable 2-18 -18 by mouth ity of tablet 17:12: 00:00 daily. [place] 42 :00 Medical Branch nitroglycer [id number] 1 [facility] in 0.4 mg 2-18 tablet ity of sublingual 00:00: under the [place] tablet 00 tongue Medical every 5 Branch (five) minutes as needed for Chest pain. nitroglycer Yes [id number] .4mg Place 1 [facility] in 0.4 mg 2-18 tablet ity of sublingual 00:00: under the [place] tablet 00 tongue Medical every 5 Branch (five) minutes as needed for Chest pain. nitroglycer Yes [id number] .4mg Place 1 [facility] in 0.4 mg 2-18 tablet ity of sublingual 00:00: under the [place] tablet 00 tongue Medical every 5 Branch (five) minutes as needed for Chest pain. atorvastati 2021- No [id number] 40mg Take 1 [facility] n 40 mg 2-18 - tablet by ity of tablet 00:00: 04:59 mouth at [place] 00 :00 bedtime Medical for 30 Branch days. carvediloL 2021- No [id number] 6.25mg Take 1 [facility] 6.25 mg 2-18 - tablet by ity of tablet 00:00: 04:59 mouth 2 [place] 00 :00 (two) Medical times Branch daily with meals for 30 days. NIFEdipine 2021- No [id number] 60mg Take 1 [facility] ER 60 mg 2-18 - tablet by ity o f tablet 00:00: 04:59 mouth 2 [place] 00 :00 (two) Medical times Branch daily for 30 days. atorvastati 2021- No [id number] 40mg Take 1 [facility] n 40 mg 2-18 - tablet by ity of tablet 00:00: 04:59 mouth at [place] 00 :00 bedtime Medical for 30 Branch days. carvediloL 2021- No [id number] 6.25mg Take 1 [facility] 6.25 mg 2-18 -21 tablet by ity of tablet 00:00: 04:59 mouth 2 [place] 00 :00 (two) Medical times Branch daily with meals for 30 days. NIFEdipine 2021- No [id number] 60mg Take 1 [facility] ER 60 mg 05-22 tablet by ity o f tablet 00:00: 04:59 mouth 2 [place] 00 :00 (two) Medical times Branch daily for 30 days. atorvastati 2021- No [id number] 40mg Take 1 [facility] n 40 mg 05-22 tablet by ity of tablet 00:00: 04:59 mouth at [place] 00 :00 bedtime Medical for 30 Branch days. carvediloL 2021- No [id number] 6.25mg Take 1 [facility] 6.25 mg 05-22 tablet by ity of tablet 00:00: 04:59 mouth 2 [place] 00 :00 (two) Medical times [place] daily with meals for 30 days. NIFEdipine 2021- No [id number] 60mg Take 1 [facility] ER 60 mg 05-22 tablet by ity o f tablet 00:00: 04:59 mouth 2 [place] 00 :00 (two) Medical times [place] daily for 30 days. clopidogreL Yes 75mg 75 mg, Univ ers (PLAVIX) 217 Oral, ity of tablet 75 15:00: DAILY, [...] Discontinu ed, Routine vitamin b 0 Yes [id number] 1{tbl} 1 tablet, Univers complex-vit 2-16 Oral, ity of miller 15:00: DAILY, [place] c-folic 00 First dose Medica l acid on Tue (NEPHRO-VIT 05/20/21 at E) 0.8 mg 0900, tablet 1 Until tablet Discontinu ed, Routine clopidogreL 0 2021- No 75mg 75 mg, Uni vers (PLAVIX) 2-16 02-16 Oral, ity of tablet 75 15:00: 15:04 DAILY, [place] mg 00 :38 First dose Medical on Tue [place] 05/20/21 at 0900, Until Discontinu ed, Routine atorvastati 0 Yes [id number] 40mg 40 mg, Univers n (LIPITOR) 2-16 Oral, QHS, it y of tablet 40 03:00: First dose [place] mg 00 on [facility] 05/19/21 at Branch 2100, Until Discontinu ed, Routine NIFEdipine 2021-0 Yes [id number] 60mg 60 mg, U nivers ER tablet 2-16 Oral, BID, ity of 60 mg 02:00: First dose [place] 00 (after Medical last Branch modificati on) on [facility] 05/19/21 at 2000, Until Discontinu ed, Routine lisinopriL 0 Yes [id number] 5mg 5 mg, Un kecia (PRINIVIL,Z 2-15 Oral, ity of ESTRIL) 20:45: DAILY, [place] tablet 5 mg 00 First dose Me dical on [facility] 05/19/21 at 1445, Until Discontinu ed, Routine traMADoL 0 Yes 50mg 50 mg, Univers (ULTRAM) 2-12 Oral, ity of tablet 50 21:59: Q6HPRN, [place] mg 37 Starting Medical on [facility] 05/16/21 at 1559, Until Discontinu ed, Routine, Pain (scale 4-6) aspirin 2021-0 Yes 81mg 81 mg, Univers chewable 2-12 Oral, ity of tablet 81 15:00: DAILY, [place] mg 00 First dose Medical on [facility] 05/16/21 at 0900, Until Discontinu ed, Routine NIFEdipine 0 2021- No 60mg 60 mg, Univ ers [...] swallow or has mental changes. dextrose 50 Yes 25mL 25 mL, Univ ers % [...] at 2200, Until Discontinu ed, Routine carvediloL 2022-0 Yes 6.25mg 6.25 mg, U nivers (COREG) 2-12 Oral, BID ity of tablet 6.25 01:00: MEALS, [place] mg 00 First dose Medical on Tue Branch 05/15/21 at 1900, Until Discontinu ed, Routine
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 Restricted medication : NEIL THOMAS aspirin 2021-0 2022- No 325mg 325 mg, Unive rs tablet 325 05-1612 Oral, ity of mg 01:00: 01:57 ONCE, 1 [place] 00 :00 dose, On Medical Fri Branch [...] IV Push, ity of (PF)) 00:56: Q6HPRN, [place] injection 4 53 Starting Medi yoel mg on Tue Branch 05/15/21 at 1856, Until Discontinu ed, Routine, Nausea and Vomiting (N/V) acetaminoph 0 Yes 650mg 650 mg, Un kecia en 05-16 Oral, ity of (TYLENOL) 00:56: Q6HPRN, [place] tablet 650 38 Starting Medic al mg on Tue Branch 05/15/21 at 1856, Until Discontinu ed, Routine, Pain (scale 1-3), Temp > 38.5 C ondansetron 2021-0 202- No 4mg 4 mg, Slow Univers (ZOFRAN 05-15 IV Push, ity of (PF)) 23:30: 22:34 ONCE, 1 [place] injection 4 00 :00 dose, On Medi yoel mg Tue Branch 05/15/21 at 1730, MATTHEW morpHINE 2021-0 202- No 4mg 4 mg, Slow Un kecia injection 4 05-15 IV Push, ity of mg 23:30: 22:34 ONCE, 1 [place] 00 :00 dose, On Medical Fri Branch 05/15/21 at 1730, STAT iopamidol 2021- No [id number] 100mL 100 mL, Univers (ISOVUE 05-15 Intravenou ity o f 370-500 mL) 22:00: 22:00 s, ONCE, 1 [place] injection 00 :00 dose, On Medica l 100 mL Fri Branch 05/15/21 at 1600, Routine aspirin 81 Yes 81mg QD Take [address] MG EC 5-27 by mouth [facility] tablet 15:07: daily. [address] carvediloL Yes 12.5mg Take 12.[address] (COREG) 5-27 mg by [facility] 12.5 MG 15:07: mouth 2 Medical tablet 20 (two) Center times daily with breakfast and dinner. aspirin 81 Yes 81mg QD Take [address] MG EC 5-27 by mouth [facility] tablet 15:07: daily. [address] carvediloL Yes 12.5mg Take 12.5 [facility] [...] a e 1-17 l 19:15: ergocalcife Yes [id number] Q7D Take Meth ale rol 7-25 50,000 [...] hr 42 l tablet ergocalcife 2019-0 Yes [id number] Q7D Take Meth ale rol 7-25 50,000 [...] hr 42 l tablet ergocalcife 2019-0 Yes [id number] Q7D Take Meth ale rol 7-25 50,000 [...] hr 42 l tablet ergocalcife 2019-0 Yes [id number] Q7D Take Meth ale rol 7-25 50,000 [...] hr 42 l tablet ergocalcife 2019-0 Yes [id number] Q7D Take Meth ale rol 7-25 50,000 st (VITAMIN 15:19: Units by Hospi ta D2) 50,000 42 mouth once l unit a week. capsule multivitami 2019-0 Yes 1{tbl} QD Take 1 Me thodi n 7-[address] (DAILY-LARON 15:19: mouth Hospi ta ORAL) 42 daily. l ergocalcife 2019-0 Yes [id number] Q7D Take Meth ale rol 7-25 50,000 [...] Hospita tablet 42 l ergocalcife 2019-0 Yes [id number] Q7D Take Meth ale rol 7-25 50,000 [...] hr 42 l tablet ergocalcife 2019-0 Yes [id number] Q7D Take Meth ale rol 7-25 50,000 [...] hr 42 l tablet ergocalcife 2019-0 Yes [id number] Q7D Take Meth ale rol 7-25 50,000 [...] hr 42 l tablet ergocalcife 2019-0 Yes [id number] Q7D Take Meth ale rol 7-25 50,000 [...] hr 42 l tablet ergocalcife 2019-0 Yes [id number] Q7D Take Meth ale rol 7-25 50,000 [...] hr 42 l tablet ergocalcife 2019-0 Yes [id number] Q7D Take Meth ale rol 7-25 50,000 [...] hr 42 l tablet ergocalcife 2019-0 Yes [id number] Q7D Take Meth ale rol 7-25 50,000 [...] hr 42 l tablet ergocalcife 2019-0 Yes [id number] Q7D Take Meth ale rol 7-25 50,000 [...] hr 42 l tablet ergocalcife 2019-0 Yes [id number] Q7D Take Meth ale rol 7-25 50,000 [...] hr 42 l tablet ergocalcife 2019-0 Yes [id number] Q7D Take Meth ale rol 7-25 50,000 st (VITAMIN 15:19: Units by Hospi ta D2) 50,000 42 mouth once l unit a week. capsule ergocalcife 2019-0 Yes [id number] Q7D Take Meth ale rol 7-25 50,000 [...] Hospita tablet 42 l ergocalcife 2019-0 Yes [id number] Q7D Take Meth ale rol 7-25 50,000 [...] hr 42 l tablet ergocalcife 2019-0 Yes [id number] Q7D Take Meth ale rol 7-25 50,000 [...] hr 42 l tablet ergocalcife 2019-0 Yes [id number] Q7D Take Meth ale rol 7-25 50,000 [...] hr 42 l tablet ergocalcife 2019-0 Yes [id number] Q7D Take Meth ale rol 7-25 50,000 [...] Hospita 42 times a l day. atorvastati 2019- Yes 40mg QD Take 40 mg Methodi [...] a 25 mg 00 l tablet Atorvastati 2018-0 Yes [place] AT BEDTIME Memoria n Calcium [...] Hospita enteric 00 l coated tablet furosemide 2019- Yes Take by Meth ale (LASIX) 40 7-[address] mg tablet 00:00: Hospita 00 l aspirin 2019- Yes Methodi (ECOTRIN) 7-10 st 81 MG [...] 00:00: mouth. Hospita tablet 00 l lactulose Yes Take by Metho di (CEPHULAC) 10-[address] 10 gram 00:00: Hospita packet 00 l lanthanum Yes Take by Meth[facility] di 1,[address] powder in 00:00: Hospita packet 00 l NIFEdipine Yes 1{tbl} Take 1 Met hodi XL 10-[address] (PROCARDIA 00:00: mouth. Hospi ta XL) 60 MG 00 l 24 hr tablet Immunizations Ordered Filled Immunization Date Status Comments [facility] e Immunization Name Name Influenza High Dose 2021-02-02 Completed Unive rsity of 00:00:00 [facility] Influenza High Dose 2021-02-02 Completed Unive rsity of 00:00:00 [facility] Influenza High Dose 2021-02-02 Completed Unive rsity of 00:00:00 [facility] Influenza High Dose 2021-02-02 Completed Unive rsity of 00:00:00 [facility] Influenza High Dose 2021-02-02 Completed Unive rsity of 00:00:00 [facility] Influenza High Dose 2021-02-02 Completed Unive rsity of 00:00:00 [facility] Influenza High Dose 2021-02-02 Completed Unive rsity of 00:00:00 [facility] Influenza High Dose 2021-02-02 Completed Unive rsity of 00:00:00 [facility] Influenza High Dose 2021-02-02 Completed Unive rsity of 00:00:00 [facility] Influenza High Dose 2021-02-02 Completed Unive rsity of 00:00:00 [facility] Influenza High Dose 2021-02-02 Completed Unive rsity of 00:00:00 [facility] Influenza High Dose 2021-02-02 Completed Unive rsity of 00:00:00 [facility] Influenza High Dose 2021-02-02 Completed Unive rsity of 00:00:00 [facility] SARS-COV-2 COVID-19 2020-07-30 Completed Unive rsity of PFIZER VACCINE 00:00:00 [facility] SARS-COV-2 COVID-19 2020-07-30 Completed Unive rsity of PFIZER VACCINE 00:00:00 [facility] Branch SARS-COV-2 COVID-19 2020-07-30 Completed Unive rsity of PFIZER VACCINE 00:00:00 [facility] Branch SARS-COV-2 COVID-19 2020-07-30 Completed Unive rsity of PFIZER VACCINE 00:00:00 [facility] Branch SARS-COV-2 COVID-19 2020-07-30 Completed Unive rsity of PFIZER VACCINE 00:00:00 [facility] Branch SARS-COV-2 COVID-19 2020-07-30 Completed Unive rsity of PFIZER VACCINE 00:00:00 [facility] Branch SARS-COV-2 COVID-19 2020-07-30 Completed Unive rsity of PFIZER VACCINE 00:00:00 [facility] Branch SARS-COV-2 COVID-19 2020-07-30 Completed Unive rsity of PFIZER VACCINE 00:00:00 [facility] Branch SARS-COV-2 COVID-19 2020-07-30 Completed Unive rsity of PFIZER VACCINE 00:00:00 [facility] Branch SARS-COV-2 COVID-19 2020-07-30 Completed Unive rsity of PFIZER VACCINE 00:00:00 [facility] Branch SARS-COV-2 COVID-19 2020-07-30 Completed Unive rsity of PFIZER VACCINE 00:00:00 [facility] Branch SARS-COV-2 COVID-19 2020-07-30 Completed Unive rsity of PFIZER VACCINE 00:00:00 [facility] [facility] SARS-COV-2 COVID-19 2020-07-30 Completed Unive rsity of PFIZER VACCINE 00:00:00 [facility] SARS-COV-2 COVID-19 2020-07-11 Completed Unive rsity of PFIZER VACCINE 00:00:00 [facility] SARS-COV-2 COVID-19 2020-07-11 Completed Unive rsity of PFIZER VACCINE 00:00:00 [facility] SARS-COV-2 COVID-19 2020-07-11 Completed Unive rsity of PFIZER VACCINE 00:00:00 [facility] SARS-COV-2 COVID-19 2020-07-11 Completed Unive rsity of PFIZER VACCINE 00:00:00 [facility] SARS-COV-2 COVID-19 2020-07-11 Completed Unive rsity of PFIZER VACCINE 00:00:00 [facility] SARS-COV-2 COVID-19 2020-07-11 Completed Unive rsity of PFIZER VACCINE 00:00:00 [facility] SARS-COV-2 COVID-19 2020-07-11 Completed Unive rsity of PFIZER VACCINE 00:00:00 [facility] SARS-COV-2 COVID-19 2020-07-11 Completed Unive rsity of PFIZER VACCINE 00:00:00 [facility] SARS-COV-2 COVID-19 2020-07-11 Completed Unive rsity of PFIZER VACCINE 00:00:00 [facility] SARS-COV-2 COVID-19 2020-07-11 Completed Unive rsity of PFIZER VACCINE 00:00:00 [facility] SARS-COV-2 COVID-19 2020-07-11 Completed Unive rsity of PFIZER VACCINE 00:00:00 [facility] SARS-COV-2 COVID-19 2020-07-11 Completed Unive rsity of PFIZER VACCINE 00:00:00 [facility] SARS-COV-2 COVID-19 2020-07-11 Completed Unive rsity of PFIZER VACCINE 00:00:00 [facility] PPD (TB) 2018-03-20 Completed University of 00:00:00 [facility] PPD (TB) 2018-03-20 Completed University of 00:00:00 [facility] PPD (TB) 2018-03-20 Completed University of 00:00:00 [facility] PPD (TB) 2018-03-20 Completed University of 00:00:00 [facility] PPD (TB) 2018-03-20 Completed University of 00:00:00 [facility] PPD (TB) 2018-03-20 Completed University of 00:00:00 [facility] PPD (TB) 2018-03-20 Completed University of 00:00:00 [facility] PPD (TB) 2018-03-20 Completed University of 00:00:00 [facility] PPD (TB) 2018-03-20 Completed University of 00:00:00 [facility] PPD (TB) 2018-03-20 Completed University of 00:00:00 [facility] PPD (TB) 2018-03-20 Completed University of 00:00:00 [facility] PPD (TB) 2018-03-20 Completed University of 00:00:00 [facility] PPD (TB) 2018-03-20 Completed University of 00:00:00 [facility] Influenza Virus 2018-01-20 Completed Universit y of Vaccine - Whole 00:00:00 [facility] Influenza Virus 2018-01-20 Completed Universit y of Vaccine - Whole 00:00:00 [facility] Influenza Virus 2018-01-20 Completed Universit y of Vaccine - Whole 00:00:00 [facility] Influenza Virus 2018-01-20 Completed Universit y of Vaccine - Whole 00:00:00 [facility] Influenza Virus 2018-01-20 Completed Universit y of Vaccine - Whole 00:00:00 [facility] Influenza Virus 2018-01-20 Completed Universit y of Vaccine - Whole 00:00:00 [facility] Influenza Virus 2018-01-20 Completed Universit y of Vaccine - Whole 00:00:00 [facility] Influenza Virus 2018-01-20 Completed Universit y of Vaccine - Whole 00:00:00 [facility] Influenza Virus 2018-01-20 Completed Universit y of Vaccine - Whole 00:00:00 [facility] Influenza Virus 2018-01-20 Completed Universit y of Vaccine - Whole 00:00:00 [facility] Influenza Virus 2018-01-20 Completed Universit y of Vaccine - Whole 00:00:00 [facility] Influenza Virus 2018-01-20 Completed Universit y of Vaccine - Whole 00:00:00 [facility] Influenza Virus 2018-01-20 Completed Universit y of Vaccine - Whole 00:00:00 [facility] Pneumococcal 2014-08-02 Completed University o f Polysaccharide, 00:00:00 [facility] PPSV23 (PNEUMOVAX) Branch Pneumococcal 2014-08-02 Completed University o f Polysaccharide, 00:00:00 [facility] PPSV23 (PNEUMOVAX) [place] Pneumococcal 2014-08-02 Completed University o f Polysaccharide, 00:00:00 [facility] PPSV23 (PNEUMOVAX) [place] Pneumococcal 2014-08-02 Completed University o f Polysaccharide, 00:00:00 [facility] PPSV23 (PNEUMOVAX) [place] Pneumococcal 2014-08-02 Completed University o f Polysaccharide, [...] 00:00:00 [place] [facility] PPSV23 (PNEUMOVAX) Branch Vital Signs Vital Name Observation Time Observation Value Comments Source Systolic blood 2021-09-29 20:09:00 139 mm[Hg] Univer sity [facility] Diastolic blood 2021-09-29 20:09:00 61 mm[Hg] Unive [facility] Heart rate 2021-09-29 20:09:00 73 /min [facility] Body temperature 2021-09-29 20:09:[address] [facility] Respiratory rate 2021-09-29 20:09:00 16 /min [facility] Body height 2021-09-29 20:09:00 160 cm [facility] Body weight 2021-09-29 20:09:00 61.326 kg [facility] BMI 2021-09-29 20:09:00 23.95 kg/m2 [facility] Oxygen saturation in 2021-09-29 20:09:00 93 /min [facility] Arterial blood by [facility] Pulse oximetry Branch Systolic blood 2021-09-29 20:09:00 139 mm[Hg] Univer sity of pressure [facility] Diastolic blood 2021-09-29 20:09:00 61 mm[Hg] Unive rsity of pressure [facility] Heart rate 2021-09-29 20:09:00 73 /min Universi ty [facility] Body temperature 2021-09-29 20:09:00 36.5 Priya [facility] 2021-09-29 20:09:00 16 /min [facility] Body height 2021-09-29 20:09:00 160 cm Universi ty of [facility] Body weight 2021-09-29 20:09:00 61.326 kg Universi ty [facility] BMI 2021-09-29 20:09:00 23.95 kg/m2 Universi ty [facility] Oxygen saturation in 2021-09-29 20:09:00 93 /min [facility] Arterial blood by [facility] Pulse oximetry Branch WEIGHT 2021-07-03 13:00:00 60.4 [...] 01:40:00 126 mm[Hg] Univer sity of pressure [facility] Diastolic blood 2021-05-23 01:40:00 46 mm[Hg] Unive rsity of [facility] Heart rate 2021-05-23 01:40:00 62 /min [facility] Body temperature 2021-05-23 01:40:[address] [facility] Respiratory rate 2021-05-23 01:40:00 16 /min [facility] Body weight 2021-05-23 01:40:00 67.3 kg [facility] BMI 2021-05-23 01:40:00 26.28 kg/m2 [facility] Oxygen saturation in 2021-05-22 17:16:00 93 /min University Arterial blood by [facility] Pulse oximetry Branch Body height 2021-05-19 19:34:00 160 cm [facility] Systolic blood 2021-07-04 08:10:00 149 mm[Hg] [facility] Diastolic blood 2021-07-04 08:10:00 65 mm[Hg] [facility] Heart rate 2021-07-04 08:10:00 71 /min [facility] Body temperature 2021-07-04 08:10:00 36.22 Priya [facility] Respiratory rate 2021-07-04 08:10:00 18 /min [facility] Oxygen saturation in 2021-07-04 08:10:00 93 /min [facility] Arterial blood by Medical Ce [facility]ter Pulse oximetry Systolic blood 2021-07-03 14:23:00 123 mm[Hg] [facility] Diastolic blood 2021-07-03 14:23:00 60 mm[Hg] [facility] Heart rate 2021-07-03 14:23:00 70 /min [facility] Body temperature 2021-07-03 14:23:00 35.94 Priya [facility] Respiratory rate 2021-07-03 14:23:00 18 /min [facility] Oxygen saturation in 2021-07-03 14:23:00 97 /min [facility] Arterial blood by [facility] Pulse oximetry Body weight 2021-07-03 13:00:00 60.4 kg [facility] BMI 2021-07-03 13:00:00 23.59 kg/m2 [facility] Systolic blood 2021-07-03 08:18:00 156 mm[Hg] [facility] Diastolic blood 2021-07-03 08:18:00 67 mm[Hg] [facility] Heart rate 2021-07-03 08:18:00 68 /min [facility] Body temperature 2021-07-03 08:18:00 36.22 Priya [facility] Respiratory rate 2021-07-03 08:18:00 20 /min [facility] Oxygen saturation in 2021-07-03 08:18:00 94 /min [facility] Arterial blood by Medical [facility] Pulse oximetry Heart rate 2021-07-02 10:00:00 72 /min [facility] Systolic blood 2021-07-02 08:00:00 171 mm[Hg] [facility] Diastolic blood 2021-07-02 08:00:00 78 mm[Hg] [facility] Body temperature 2021-07-02 08:00:00 36.56 Priya [facility] Respiratory rate 2021-07-02 08:00:00 20 /min [facility] Oxygen saturation in 2021-07-02 08:00:00 94 /min [facility] Arterial blood by Medical [facility] Pulse oximetry Body weight 2021-07-02 04:21:00 62.37 kg [facility] BMI 2021-07-02 04:21:00 24.36 kg/m2 [facility] Systolic blood 2021-07-01 09:15:00 167 mm[Hg] [facility] Diastolic blood 2021-07-01 09:15:00 71 mm[Hg] [facility] Heart rate 2021-07-01 09:15:00 71 /min [facility] Respiratory rate 2021-07-01 09:15:00 14 /min [facility] Oxygen saturation in 2021-07-01 09:15:00 96 /min [facility] Arterial blood by Medical Ce [facility]ter Pulse oximetry Body temperature 2021-07-01 09:00:00 36.44 Priya [facility] Systolic blood 2021-06-29 14:24:00 169 mm[Hg] [facility] Diastolic blood 2021-06-29 14:24:00 71 mm[Hg] [facility] Heart rate 2021-06-29 14:24:00 70 /min [facility] Body temperature 2021-06-29 14:24:00 36.67 Priya [facility] Respiratory rate 2021-06-29 14:24:00 20 /min [facility] Oxygen saturation in 2021-06-29 14:24:00 98 /min [facility] Arterial blood by Medical Ce [facility]ter Pulse oximetry Systolic blood 2021-06-29 07:46:00 133 mm[Hg] [facility] Diastolic blood 2021-06-29 07:46:00 63 mm[Hg] [facility] Heart rate 2021-06-29 07:46:00 70 /min [facility] Body temperature 2021-06-29 07:46:00 36.44 Priya [facility] Respiratory rate 2021-06-29 07:46:00 20 /min [facility] Oxygen saturation in 2021-06-29 07:46:00 97 /min [facility] Arterial blood by [facility] Pulse oximetry Systolic blood 2021-06-26 10:15:00 169 mm[Hg] [facility] Diastolic blood 2021-06-26 10:15:00 66 mm[Hg] [facility] Heart rate 2021-06-26 10:15:00 71 /min [facility] Body temperature 2021-06-26 10:15:00 36.56 Priya [facility] Respiratory rate 2021-06-26 10:15:00 16 /min [facility] Oxygen saturation in 2021-06-26 10:15:00 99 /min [facility] Arterial blood by Medical Ce [facility] Pulse oximetry Systolic blood 2021-06-26 08:15:00 128 mm[Hg] [facility] Diastolic blood 2021-06-26 08:15:00 53 mm[Hg] [facility] Heart rate 2021-06-26 08:15:00 70 /min [facility] Body temperature 2021-06-26 08:15:00 36.5 Priya [facility] Respiratory rate 2021-06-26 08:15:00 9 /min [facility] Oxygen saturation in 2021-06-26 08:15:00 97 /min [facility] Arterial blood by Medical [facility] Pulse oximetry Body weight 2021-06-25 00:00:00 64.5 kg [facility] BMI 2021-06-25 00:00:00 25.19 kg/m2 [facility] Body height 2021-06-13 11:09:00 160 cm [facility] Body height 2020-07-24 16:34:00 160 cm [facility] Body weight 2020-07-24 16:34:00 67 kg [facility] BMI 2020-07-24 16:34:00 26.17 kg/m2 [facility] Temperature Oral (F) 2019-02-19 22:00:00 98.3 F [facility] Heart Rate 2019-02-19 22:00:00 [facility] Respitory Rate 2019-02-19 22:00:00 [facility] Systolic (mm Hg) 2019-02-19 22:00:00 [facility] [place] Diastolic (mm Hg) 2019-02-19 22:00:00 [facility] Height 2019-02-19 11:49:00 [facility] Weight 2019-02-19 11:49:00 [facility] Height 2019-01-26 05:47:00 [facility] Heart Rate 2019-01-26 05:47:00 [facility] Respitory Rate 2019-01-26 05:47:00 [facility] [place] Systolic (mm Hg) 2019-01-26 05:47:00 [facility] Diastolic (mm Hg) 2019-01-26 05:47:00 [facility] Temperature Oral (F) 2019-01-26 05:19:00 101.3 F [facility] Weight 2019-01-26 01:51:00 [facility] Heart Rate 2018-10-11 20:05:00 [facility] Systolic (mm Hg) 2018-10-11 20:05:00 [facility]on [facility] Diastolic (mm Hg) 2018-10-11 20:05:00 [facility] [place] Temperature Oral (F) 2018-10-11 20:00:00 98.1 F [facility] Respitory Rate 2018-10-11 20:00:00 Talisha al [facility] Height 2018-10-10 13:16:00 [facility] Weight 2018-10-10 13:16:00 [facility] Procedures Procedure Date / Time Performing Clinician Source Performed EXTERNAL PROVIDER RECORDS 2022-04-06 06:01:00 Doctor Unassigned, No [facility] EXTERNAL PROVIDER RECORDS 2021-12-15 05:01:00 Doctor Unassigned, No [facility] EXTERNAL PROVIDER - ADC 2021-10-21 05:01:00 Doctor Unassigned, N o [facility] [place] ARRYTHMIA IMPLANT REPORT 2021-07-06 00:00:00 Provider, Default C [facility] POCT-GLUCOSE METER 2021-07-04 08:33:00 [facility] CBC (HEMOGRAM ONLY) 2021-07-04 04:37:00 Martinez Ricardo [facility] BASIC METABOLIC PANEL 2021-07-04 04:37:00 Martinez Ricardo [facility] MAGNESIUM 2021-07-04 04:37:[address] [facility] PHOSPHORUS 2021-07-04 04:37:[address] [facility] XR CHEST 1 VIEW PORTABLE 2021-07-04 04:30:[address] [facility] POCT-GLUCOSE METER 2021-07-03 21:18:00 Logan Russo [facility] POCT-GLUCOSE METER 2021-07-03 17:40:00 Logan Russo [facility] SARS-COV2/RT-PCR ([facility] & 2021-07-03 17:24:00 Martinez Ricardo [facility] PO[facility]-GLUCOSE METER 2021-07-03 16:06:00 Logan Russo [facility] REPORT OF PROCEDURE - 2021-07-03 15:34:[address] [facility] ENDOSCOPY URL [facility] COLONOSCOPY 2021-07-03 15:05:00 [facility] 2021-07-03 15:04:[address] [facility] COLONOSCOPY,POLYPECTOMY 2021-07-03 14:39:[address] [facility] COLONOSCOPY, WITH 2021-07-03 14:39:00 Amaratunge, Angela [facility] POLYPECTOMY [facility] COLONOSCOPY 2021-07-03 14:00:00 Amaratunge [facility] POCT-GLUCOSE METER 2021-07-03 13:31:00 Logan Russo [facility] COLONOSCOPY 2021-07-03 13:00:00 Amaratungzaida [facility] HEMODIALYSIS INPATIENT 2021-07-03 10:32:50 Wilner Aponte [facility] POCT-GLUCOSE METER 2021-07-03 08:44:00 Logan Russo [facility] XR CHEST 1 VIEW PORTABLE 2021-07-03 05:24:[address] [facility] CBC (HEMOGRAM ONLY) 2021-07-03 03:08:00 Martinez Ricardo [facility] BASIC METABOLIC PANEL 2021-07-03 03:08:00 Martinez Ricardo CH, [facility] MAGNESIUM 2021-07-03 03:08:[address] [facility] PHOSPHORUS 2021-07-03 03:08:00 Martinez Ricardo [facility] POCT-GLUCOSE METER 2021-07-02 21:26:00 [facility] POCT-GLUCOSE METER 2021-07-02 17:49:00 RussoLogan [facility] POCT-GLUCOSE METER 2021-07-02 12:48:00 RussoLogan [facility] POCT-GLUCOSE METER 2021-07-02 08:33:00 [facility] XR CHEST 1 VIEW PORTABLE 2021-07-02 06:45:00 Davion [facility] CBC (HEMOGRAM ONLY) 2021-07-02 05:29:00 Davion [facility] BASIC METABOLIC PANEL 2021-07-02 05:29:00 Martinez Ricardo [facility] MAGNESIUM 2021-07-02 05:29:00 Davion [facility] PHOSPHORUS 2021-07-02 05:29:00 Davion [facility] POCT-GLUCOSE METER 2021-07-01 21:45:00 [facility] POCT-GLUCOSE METER 2021-07-01 17:44:00 [facility] POCT-GLUCOSE METER 2021-07-01 13:26:00 Logan Russo [facility] HEMODIALYSIS INPATIENT 2021-07-01 12:51:00 Jersey Costello Wilner [facility] HEMODIALYSIS INPATIENT 2021-07-01 09:16:58 Wilner Aponte [facility] POCT-GLUCOSE METER 2021-07-01 08:31:00 [facility] XR CHEST 1 VIEW PORTABLE 2021-07-01 05:38:00 Davion [facility] CBC (HEMOGRAM ONLY) 2021-07-01 05:15:00 Davion [facility] BASIC METABOLIC PANEL 2021-07-01 05:15:00 Martinez Ricardo [facility] MAGNESIUM 2021-07-01 05:15:00 Martinez Ricardo [facility] PHOSPHORUS 2021-07-01 05:15:00 [facility] PO[facility]SE METER 2021-06-30 21:03:00 Russo, Logan Vaca [facility] VENOGRAM 2021-06-30 18:06:00 Krzysztof Dodd [facility] POCT-GLUCOSE METER 2021-06-30 17:27:00 Russo, Logan Vaca [facility] XR ABDOMEN/KUB 1 VIEW 2021-06-30 17:21:00 Angela Loco [facility] PORTABLE [facility] POCT-GLUCOSE METER 2021-06-30 12:24:00 Russo, Logan Vaca [facility] POCT-GLUCOSE METER 2021-06-30 08:15:00 RussoLogan [facility] CBC (HEMOGRAM ONLY) 2021-06-30 04:40:00 Martinez Ricardo [facility] BASIC METABOLIC PANEL 2021-06-30 04:40:00 Martinez Ricardo [facility] MAGNESIUM 2021-06-30 04:40:00 Martinez Ricardo [facility] PHOSPHORUS 2021-06-30 04:40:00 Davion [facility] XR CHEST 1 VIEW PORTABLE 2021-06-30 03:46:[address] [facility] PREPARE LEUKO-REDUCED RBC 2021-06-29 23:54:00 Dillon Ricardo [facility] POCT-GLUCOSE METER 2021-06-29 21:53:00 [facility] POCT-GLUCOSE METER 2021-06-29 17:44:00 [facility] POCT-GLUCOSE METER 2021-06-29 14:20:00 Logan Russo [facility] HEMODIALYSIS INPATIENT 2021-06-29 13:25:00 AjBertrand luevano DIANE [facility] POCT-GLUCOSE METER 2021-06-29 08:39:00 Logan Russo [facility] XR CHEST 1 VIEW PORTABLE 2021-06-29 05:20:00 Martinez Ricardo [facility] CBC (HEMOGRAM ONLY) 2021-06-29 04:49:00 Martinez Ricardo [facility] BASIC METABOLIC PANEL 2021-06-29 04:49:00 Martinez Ricardo [facility] MAGNESIUM 2021-06-29 04:49:[address] [facility] PHOSPHORUS 2021-06-29 04:49:00 Martinez Ricardo [facility] POCT-GLUCOSE METER 2021-06-28 19:42:00 Logan Russo [facility] POCT-GLUCOSE METER 2021-06-28 17:22:00 Logan Russo [facility] CBC W/PLT COUNT & AUTO 2021-06-28 15:23:00 Niki [facility] CBC W/PLT COUNT & AUTO 2021-06-28 15:23:00 Niki [facility] POCT-GLUCOSE METER 2021-06-28 12:31:00 Logan Russo [facility] TRANSFUSE LEUKO-REDUCED 2021-06-28 11:03:00 Martinez Ricardo [facility] RED BLOOD CELLS [facility] PREPARE LEUKO-REDUCED RBC 2021-06-28 10:49:00 Dillon Ricardo [facility] POCT-GLUCOSE METER 2021-06-28 08:32:00 Logan Russo [facility] XR CHEST 1 VIEW PORTABLE 2021-06-28 04:23:[address] [facility] CBC (HEMOGRAM ONLY) 2021-06-28 04:05:00 Martinez Ricardo [facility] BASIC METABOLIC PANEL 2021-06-28 04:05:00 Martinez Ricardo [facility] MAGNESIUM 2021-06-28 04:05:00 Martinez Ricardo [facility] PHOSPHORUS 2021-06-28 04:05:00 Martinez Ricardo [facility] PREPARE LEUKO-REDUCED RBC 2021-06-27 23:54:00 Dillon Ricardo [facility] POCT-GLUCOSE METER 2021-06-27 21:27:00 [facility]soLogan [facility] POCT-GLUCOSE METER 2021-06-27 17:51:00 RussoLogan [facility] POCT-GLUCOSE METER 2021-06-27 15:02:00 [facility]Log[facility] POCT-GLUCOSE METER 2021-06-27 12:08:00 [facility] POCT-GLUCOSE METER 2021-06-27 08:23:00 [facility] SARS-COV2/RT-PCR ([facility] & 2021-06-27 04:13:00 Martinez Ricardo [facility] REF LABS) [facility] CBC (HEMOGRAM ONLY) 2021-06-27 04:08:00 Martinez Ricardo [facility] BASIC METABOLIC PANEL 2021-06-27 04:08:00 Martinez Ricardo [facility] MAGNESIUM 2021-06-27 04:08:00 Martinez Ricardo [facility] PHOSPHORUS 2021-06-27 04:08:00 Martinez Ricardo [facility] APTT 2021-06-27 04:08:00 Abel Hernandez [facility] PROTHROMBIN TIME/INR 2021-06-27 04:08:00 Abel Hernandez [facility] XR CHEST 1 VIEW PORTABLE 2021-06-27 03:58:00 Martinez Ricardo [facility] / BEDSIDE [facility] POCT-GLUCOSE METER 2021-06-26 20:59:00 Russo, Logan Vaca [facility] HEMODIALYSIS INPATIENT 2021-06-26 19:13:00 Wilner Aponte [facility] POCT-GLUCOSE METER 2021-06-26 18:55:00 Russo, Logan Vaca [facility] HEMOGLOBIN AND HEMATOCRIT 2021-06-26 11:31:00 Dannielle Erwin [facility] POCT-GLUCOSE METER 2021-06-26 11:15:00 Russo, Logan Vaca [facility] POCT-GLUCOSE METER 2021-06-26 09:16:00 Russo, Logan Vaca [facility] LASER EXTRACTION,LEAD 2021-06-26 07:30:00 Krzysztof Dodd [facility] TRANSFUSE LEUKO-REDUCED 2021-06-26 06:15:00 Martinez Ricardo [facility] RED BLOOD CELLS [facility] PREPARE LEUKO-REDUCED RBC 2021-06-26 06:01:00 Dillon Ricardo [facility] CBC (HEMOGRAM ONLY) 2021-06-26 03:25:00 Martinez Ricardo [facility] BASIC METABOLIC PANEL 2021-06-26 03:25:00 Martinez Ricardo [facility] MAGNESIUM 2021-06-26 03:25:00 Martinez Ricardo [facility] PHOSPHORUS 2021-06-26 03:25:00 [facility] 2021-06-26 03:25:00 MaryAbel hernandez [facility] PROTHROMBIN TIME/INR 2021-06-26 03:25:00 Abel Hernandez [facility] XR CHEST 1 VIEW PORTABLE 2021-06-26 01:25:00 Martinez Ricardo [facility] / BEDSIDE [facility] POCT-GLUCOSE METER 2021-06-25 21:46:00 Beth, [facility] [facility] TYPE AND SCREEN, 2021-06-25 18:55:00 Krzysztof Dodd [facility] IR TUNNELED CATHETER 2021-06-25 17:45:00 Gurinder Nash [facility] INSERTION [facility] POCT-GLUCOSE METER 2021-06-25 11:18:00 Logan Russo [facility] ECG 12-LEAD 2021-06-25 09:57:06 Unknown, 7 [facility] ECG 12-LEAD 2021-06-25 09:57:06 Unknown, 7 [facility] ECG 12-LEAD 2021-06-25 09:57:06 Unknown, 7 [facility] ECG 12-LEAD 2021-06-25 09:56:17 Unknown, 7 [facility] ECG 12-LEAD 2021-06-25 09:56:17 Unknown, 7 [facility] CBC (HEMOGRAM ONLY) 2021-06-25 02:56:00 Martinez Ricardo [facility] BASIC METABOLIC PANEL 2021-06-25 02:56:00 Martinez Ricardo I [facility] MAGNESIUM 2021-06-25 02:56:00 Davion Martinez [facility] PHOSPHORUS 2021-06-25 02:56:00 Davino [facility] APTT 2021-06-25 02:56:00 Abel Hernandez [facility] PROTHROMBIN TIME/INR 2021-06-25 02:56:00 Abel Hernandez [facility] XR CHEST 1 VIEW PORTABLE 2021-06-25 02:31:00 Martinez Ricardo [facility] / BEDSIDE [facility] POCT-GLUCOSE METER 2021-06-24 22:02:00 Logan Russo [facility] XR ABDOMEN/KUB 1 VIEW 2021-06-24 18:29:00 Gurinder Nash [facility] POCT-GLUCOSE METER 2021-06-24 16:07:00 Logan Russo [facility] POCT-GLUCOSE METER 2021-06-24 12:26:00 Logan Russo [facility] HEMODIALYSIS INPATIENT 2021-06-24 11:25:03 Wilner Aponte [facility] POCT-GLUCOSE METER 2021-06-24 08:28:00 Logan Russo [facility] CBC (HEMOGRAM ONLY) 2021-06-24 03:01:00 Martinez Ricardo [facility] BASIC METABOLIC PANEL 2021-06-24 03:01:00 Martinez Ricardo I [facility] MAGNESIUM 2021-06-24 03:01:00 Martinez Ricardo [facility] PHOSPHORUS 2021-06-24 03:01:00 Davion [facility] APTT 2021-06-24 03:01:00 Abel Hernandez [facility] PROTHROMBIN TIME/INR 2021-06-24 03:01:00 Abel Hernandez [facility] XR CHEST 1 VIEW PORTABLE 2021-06-24 00:32:00 Martinez Ricardo [facility] / BEDSIDE [facility] POCT-GLUCOSE METER 2021-06-23 20:56:00 RussoLogan del cid [facility] POCT-GLUCOSE METER 2021-06-23 16:10:00 Logan Russo [facility] BASIC METABOLIC PANEL 2021-06-23 12:59:00 Omaira Manzo [facility] POCT-GLUCOSE METER 2021-06-23 11:20:00 RussoLogan del cid [facility] POCT-GLUCOSE METER 2021-06-23 07:29:00 Logan Russo [facility] BASIC METABOLIC PANEL 2021-06-23 04:49:00 Omaira Manzo [facility] MAGNESIUM 2021-06-23 04:49:00 Martinez Ricardo [facility] PHOSPHORUS 2021-06-23 04:49:00 Davion [facility] CBC (HEMOGRAM ONLY) 2021-06-23 02:41:00 [facility] 2021-06-23 02:41:00 MaryAbel hernandez [facility] PROTHROMBIN TIME/INR 2021-06-23 02:41:00 Abel Hernandez [facility] XR CHEST 1 VIEW PORTABLE 2021-06-23 01:19:00 Martinez Ricardo [facility] / BEDSIDE [facility] POCT-GLUCOSE METER 2021-06-22 22:11:00 RussoLogan [facility] POCT-GLUCOSE METER 2021-06-22 18:02:00 Logan Russo [facility] 2D ECHO W/ DOPPLER 2021-06-22 15:55:38 Lupis Erwin CH, I [facility] (CW/PW/COLOR) [facility] BASIC METABOLIC PANEL 2021-06-22 14:30:00 Jovany [facility] POCT-GLUCOSE METER 2021-06-22 12:25:00 Logan Russo [facility] HEMODIALYSIS INPATIENT 2021-06-22 11:44:15 Wilner Aponte [facility] OXYGEN SATURATION, 2021-06-22 10:35:00 Lupis Erwin CH, I [facility] BASIC METABOLIC PANEL 2021-06-22 05:37:00 Jovany [facility] CBC (HEMOGRAM ONLY) 2021-06-22 01:34:00 Martinez Ricardo [facility] APTT 2021-06-22 01:34:00 MaryAbel hernandez [facility] PROTHROMBIN TIME/INR 2021-06-22 01:34:00 Abel Hernandez [facility] BASIC METABOLIC PANEL 2021-06-22 01:33:00 [facility] 2021-06-22 01:33:00 [facility] 2021-06-22 01:33:00 [facility]ST 1 VIEW PORTABLE 2021-06-22 01:05:00 DavionMartinez [facility] POCT-GLUCOSE METER 2021-06-21 21:09:00 RussooLgan [facility] POCT-GLUCOSE METER 2021-06-21 18:58:00 RussoLogan [facility] POCT-GLUCOSE METER 2021-06-21 13:30:00 RussoLogan [facility] BASIC METABOLIC PANEL 2021-06-21 13:29:00 Jovany [facility] PREPARE LEUKO-REDUCED RBC 2021-06-21 03:28:00 Derick Carver Si [facility] BASIC METABOLIC PANEL 2021-06-21 03:21:00 [facility] MAGNESIUM 2021-06-21 03:21:00 Ahmapamela [facility] PHOSPHORUS 2021-06-21 03:21:00 sarah [facility] CBC (HEMOGRAM ONLY) 2021-06-21 03:21:00 Jaimeelynda [facility] APTT 2021-06-21 03:21:00 Mary, Abel [facility] PROTHROMBIN TIME/INR 2021-06-21 03:21:00 Abel Hernandez [facility] XR CHEST 1 VIEW PORTABLE 2021-06-21 01:34:00 Davion [facility] PREPARE LEUKO-REDUCED RBC 2021-06-20 23:54:[address] [facility] BASIC METABOLIC PANEL 2021-06-20 17:40:00 [facility] POCT-[facility]UCOSE METER 2021-06-20 13:33:00 RussoLogan [facility] POCT-GLUCOSE METER 2021-06-20 06:06:00 RussoLogan [facility] SARS-COV2/RT-PCR ([facility] & 2021-06-20 01:20:00 [facility] BLOOD GAS, ARTERIAL 2021-06-20 01:20:00 Abel Hernandez [facility] BASIC METABOLIC PANEL 2021-06-20 01:19:00 Ahmad [facility] MAGNESIUM 2021-06-20 01:19:00 Ahmapamela [facility] PHOSPHORUS 2021-06-20 01:19:00 sarah [facility] CBC (HEMOGRAM ONLY) 2021-06-20 01:19:00 Martinez Ricardo [facility] APTT 2021-06-20 01:19:00 Abel Hernandez [facility] PROTHROMBIN TIME/INR 2021-06-20 01:19:00 Abel Hernandez [facility] CALCIUM, IONIZED 2021-06-20 01:19:00 Wilner Aponte [facility] XR CHEST 1 VIEW PORTABLE 2021-06-20 01:05:00 Martinez Ricardo [facility] / BEDSIDE [facility] PREPARE PLATELETS 2021-06-19 23:55:00 Jameson Kuo [facility] PREPARE RBC 2021-06-19 23:54:00 Logan Russo [facility] MAGNESIUM 2021-06-19 21:32:00 [facility], [facility]ERIAL 2021-06-19 21:32:00 Wilner Aponte [facility] PHOSPHORUS 2021-06-19 21:32:00 Wilner Aponte [facility] BASIC METABOLIC PANEL 2021-06-19 21:32:00 Omaira Manzo [facility] POCT-GLUCOSE METER 2021-06-19 17:55:00 Logan Russo [facility] BLOOD GAS, ARTERIAL 2021-06-19 12:39:00 Abel Hernandez [facility] BLOOD GAS, ARTERIAL 2021-06-19 11:13:00 MaryAbel hernandez [facility] POCT-GLUCOSE METER 2021-06-19 08:41:00 Russo, Logan Vaca [facility] TRANSFUSE LEUKO-REDUCED 2021-06-19 07:45:00 Derick Carver [facility] RED BLOOD CELLS [facility] BASIC METABOLIC PANEL 2021-06-19 02:14:00 Ahmad, [facility] MAGNESIUM 2021-06-19 02:14:00 Ahmad, [facility] PHOSPHORUS 2021-06-19 02:14:00 Ahmad, [facility] CBC (HEMOGRAM ONLY) 2021-06-19 02:14:00 Davion [facility] APTT 2021-06-19 02:14:00 Mary, Abel [facility] PROTHROMBIN TIME/INR 2021-06-19 02:14:00 MaryAbel hernandez [facility] BLOOD GAS, ARTERIAL 2021-06-19 02:14:00 Mary, Abel [facility] OXYGEN SATURATION, 2021-06-19 02:14:00 Art Jiménez [facility] XR CHEST 1 VIEW PORTABLE 2021-06-19 01:52:00 Davion [facility] / BEDSIDE [facility] POCT-GLUCOSE METER 2021-06-18 23:55:00 Russo, Logan Vaca [facility] PREPARE LEUKO-REDUCED RBC 2021-06-18 23:55:00 Shiva Jeter [facility] POCT-GLUCOSE METER 2021-06-18 23:03:00 Russo, Logan Vaca [facility] POCT-GLUCOSE METER 2021-06-18 21:14:00 Russo, Logan Vaca [facility] POCT-GLUCOSE METER 2021-06-18 18:54:00 Russo, Logan Vaca [facility] CBC (HEMOGRAM ONLY) 2021-06-18 18:15:00 MaryAbel [facility] BASIC METABOLIC PANEL 2021-06-18 18:15:00 MaryAbel hernandez [facility] APTT 2021-06-18 18:15:00 Mary, Abel [facility] PROTHROMBIN TIME/INR 2021-06-18 18:15:00 MaryAbel hernandez [facility] LACTIC ACID, ARTERIAL 2021-06-18 18:15:00 Mary, Abel Rey [facility] PHOSPHORUS 2021-06-18 18:15:00 Mary, Abel [facility] MAGNESIUM 2021-06-18 18:15:00 Mary, Abel [facility] BLOOD GAS, ARTERIAL 2021-06-18 18:15:00 Mary, Abel [facility] OXYGEN SATURATION, 2021-06-18 18:15:00 MaryAbel hernandez [facility] RRL CRITICAL LABS 2021-06-18 16:04:00 Mary, [facility] (ABG,NA,K,H&H,GLUCOSE) Medical C enter CALCIUM, IONIZED 2021-06-18 16:04:00 MaryAbel hernandez [facility] BLOOD GAS, ARTERIAL 2021-06-18 16:04:00 Mary, Abel [facility] SODIUM NA-STAT LAB 2021-06-18 16:04:00 Mary, Abel [facility] POTASSIUM-STAT LAB 2021-06-18 16:04:00 Mary, Abel [facility] GLUCOSE-STAT LAB 2021-06-18 16:04:00 MaryAbel hernandez [facility] HGB/HCT (H&H) - STAT LAB 2021-06-18 16:04:00 Mary Abel [facility] PREPARE PLASMA 2021-06-18 15:44:00 Logan Russo [facility] XR CHEST 1 VIEW PORTABLE 2021-06-18 15:33:00 MaryAbel hernandez [facility] OXYGEN SATURATION, 2021-06-18 15:03:00 Mary, Abel Candido [facility] SURGICALLY OBTAINED 2021-06-18 15:01:35 Logan Russo [facility] CULTURE + GRAM STAIN Medical Kwesi ter FUNGUS CULTURE + SMEAR 2021-06-18 15:01:35 Logan Russo [facility] AFB CULTURE + SMEAR 2021-06-18 15:01:35 Logan Russo [facility] (NON-SPUTUM) [facility] HEMOGLOBIN AND HEMATOCRIT 2021-06-18 14:58:00 Luh Cosby CH [facility] CBC W/PLT COUNT & AUTO 2021-06-18 14:58:00 Abel Hernandez [facility] CBC W/PLT COUNT & AUTO 2021-06-18 14:58:00 Abel Hernandez [facility] (CELLAVISION MANUAL DIFF) 2021-06-18 14:58:00 Abel Hernandez [facility] BASIC METABOLIC PANEL 2021-06-18 14:57:00 Abel Hernandez [facility] MAGNESIUM 2021-06-18 14:57:00 Mary [facility] CALCIUM, IONIZED 2021-06-18 14:57:00 Mary [facility] PROTHROMBIN TIME/INR 2021-06-18 14:57:00 Mary [facility] APTT 2021-06-18 14:57:00 Mary Abel [facility] PHOSPHORUS 2021-06-18 14:57:00 Mary [facility] POTASSIUM 2021-06-18 14:57:00 [facility] PREPARE PLATELETS 2021-06-18 14:20:00 Jameson Kuo [facility] PLATELET COUNT 2021-06-18 13:12:54 Asad Santana [facility] POCT-ACT 2021-06-18 13:08:00 Logan Russo [facility] RRL CRITICAL LABS 2021-06-18 13:05:56 Asad Santana [facility] (ABG,NA,K,H&H,GLUCOSE) [facility] C enter CALCIUM, IONIZED 2021-06-18 13:05:[address] [facility] FIBRINOGEN 2021-06-18 13:05:56 Max [facility] APTT 2021-06-18 13:05:56 Max [facility] PROTHROMBIN TIME/INR 2021-06-18 13:05:[address] [facility] BLOOD GAS, ARTERIAL 2021-06-18 13:05:[address] [place] [facility] SODIUM NA-STAT LAB 2021-06-18 13:05:56 [place], [facility] POTASSIUM-STAT LAB 2021-06-18 13:05:56 Max, [facility] GLUCOSE-STAT LAB 2021-06-18 13:05:56 [facility] (H&H) - STAT LAB 2021-06-18 13:05:[address] [facility] TRANSFUSE LEUKO-REDUCED 2021-06-18 12:46:00 Asad Santana [facility] PLATELETS [facility] TRANSFUSE LEUKO-REDUCED 2021-06-18 12:45:00 Asad Santana [facility] PLATELETS [facility] RRL CRITICAL LABS 2021-06-18 12:22:57 Logan Russo [facility] (ABG,NA,K,H&H,GLUCOSE) Medical C enter BLOOD GAS, ARTERIAL 2021-06-18 12:22:57 Logan Russo [facility] SODIUM NA-STAT LAB 2021-06-18 12:22:57 Logan Russo [facility] POTASSIUM-STAT LAB 2021-06-18 12:22:57 Logan Russo [facility] GLUCOSE-STAT LAB 2021-06-18 12:22:57 Beth Logan Vaca [facility] HGB/HCT (H&H) - STAT LAB 2021-06-18 12:22:57 Beth Logan Vaca [facility] POCT-ACT 2021-06-18 12:20:00 Beth Logan Vaca [facility] RRL CRITICAL LABS 2021-06-18 12:17:57 Beth Logan Vaca [facility] (ABG,NA,K,H&H,GLUCOSE) Medical C enter BLOOD GAS, ARTERIAL 2021-06-18 12:17:57 Beth Logan Vaca [facility] SODIUM NA-STAT LAB 2021-06-18 12:17:57 Beth Logan Vaca [facility] POTASSIUM-STAT LAB 2021-06-18 12:17:57 Beth Logan Vaca [facility] GLUCOSE-STAT LAB 2021-06-18 12:17:57 Beth Logan Vaca [facility] HGB/HCT (H&H) - STAT LAB 2021-06-18 12:17:57 Beth Logan Vaca [facility] MISCELLANEOUS LAB ORDER 2021-06-18 11:59:38 Max [facility] PLATELET COUNT 2021-06-18 11:59:38 Max [facility] FIBRINOGEN 2021-06-18 11:59:38 [place] [facility] PROTHROMBIN TIME/INR 2021-06-18 11:59:38 Max [facility] APTT 2021-06-18 11:59:38 Max [facility] POCT-ACT 2021-06-18 11:43:00 Logan Russo [facility] TISSUE EXAM 2021-06-18 11:41:00 Logan Russo [facility] RRL CRITICAL LABS 2021-06-18 11:40:27 Logan Russo [facility] (ABG,NA,K,H&H,GLUCOSE) Medical C enter BLOOD GAS, ARTERIAL 2021-06-18 11:40:27 Russo, [facility] SODIUM NA-STAT LAB 2021-06-18 11:40:27 Russo, [facility] POTASSIUM-STAT LAB 2021-06-18 11:40:27 Russo, [facility] GLUCOSE-STAT LAB 2021-06-18 11:40:27 Russo, [facility] HGB/HCT (H&H) - STAT LAB 2021-06-18 11:40:27 Russo, [facility] POCT-ACT 2021-06-18 11:15:00 Russo, [facility] RRL CRITICAL LABS 2021-06-18 11:13:46 Russo, [facility] (ABG,NA,K,H&H,GLUCOSE) Medical C enter BLOOD GAS, ARTERIAL 2021-06-18 11:13:46 Russo, [facility] SODIUM NA-STAT LAB 2021-06-18 11:13:46 Russo, [facility] POTASSIUM-STAT LAB 2021-06-18 11:13:46 Russo, [facility] GLUCOSE-STAT LAB 2021-06-18 11:13:46 Russo, [facility] HGB/HCT (H&H) - STAT LAB 2021-06-18 11:13:46 Russo, [facility] POCT-ACT 2021-06-18 10:47:00 Russo, [facility] RRL CRITICAL LABS 2021-06-18 10:45:20 [facility] ([facility]G,NA,K,H&H,GLUCOSE) Medical C enter BLOOD GAS, ARTERIAL 2021-06-18 10:45:20 Russo, [facility] SODIUM NA-STAT LAB 2021-06-18 10:45:20 Russo, [facility] POTASSIUM-STAT LAB 2021-06-18 10:45:20 Russo, [facility] GLUCOSE-STAT LAB 2021-06-18 10:45:20 Russo, Logan Vaca [facility] HGB/HCT (H&H) - STAT LAB 2021-06-18 10:45:20 Russo, Logan Vaca [facility] POCT-ACT 2021-06-18 10:14:00 RussoLogan [facility] ANESTHESIA NIMCO 2021-06-18 10:03:35 Lydia Marmolejo [facility] TRANSFUSE LEUKO-REDUCED 2021-06-18 09:26:00 Asad Santana [facility] RED BLOOD CELLS [facility] RRL CRITICAL LABS 2021-06-18 08:54:20 Max [facility] (ABG,NA,K,H&H,GLUCOSE) [facility] enter CALCIUM, IONIZED 2021-06-18 08:54:[address] [facility] BLOOD GAS, ARTERIAL 2021-06-18 08:54:[address] [facility] SODIUM NA-STAT LAB 2021-06-18 08:54:[address] [facility] POTASSIUM-STAT LAB 2021-06-18 08:54:[address] [facility] GLUCOSE-STAT LAB 2021-06-18 08:54:[address] [facility] HGB/HCT (H&H) - STAT LAB 2021-06-18 08:54:20 Asad Santana [facility] ECHOCARDIOGRAM, 2021-06-18 07:38:00 Russo, Logan Vaca [facility] TRANSESOPHAGEAL [facility] REPAIR, MITRAL VALVE 2021-06-18 07:38:00 Russo, Logan Vaca [facility] REPAIR, TRICUSPID VALVE 2021-06-18 07:38:00 Russo, Logan Vaca [facility] STERNOTOMY 2021-06-18 07:38:00 Russo, Logan Vaca [facility] NIMCO 2021-06-18 07:38:00 Russo, Logan Vaca [facility] CBC W/PLT COUNT & AUTO 2021-06-18 05:37:00 [facility] BASIC METABOLIC PANEL 2021-06-18 05:37:00 [facility]UM 2021-06-18 05:37:00 [facility] PHOSPHORUS 2021-06-18 05:37:00 [facility] CBC W/PLT COUNT & AUTO 2021-06-18 05:37:00 [facility] TRANSFUSE LEUKO-REDUCED 2021-06-17 23:31:00 Shiva Jeter [facility] RED BLOOD CELLS [facility] POCT-GLUCOSE METER 2021-06-17 21:28:00 [facility] HEMOGLOBIN AND HEMATOCRIT 2021-06-17 21:16:[address] [facility] CT ABDOMEN/PELVIS WITHOUT 2021-06-17 17:07:00 [facility] IV CONTRAST [facility] XR ABDOMEN/KUB 1 VIEW 2021-06-17 16:15:00 [facility] PORTABLE [facility] MAGNESIUM 2021-06-17 15:48:00 [facility] COMPREHENSIVE METABOLIC 2021-06-17 15:48:00 [facility] PANEL [facility] HEMOGLOBIN A1C 2021-06-17 15:48[facility]00 [facility] W/[facility]T COUNT & AUTO 2021-06-17 15:48:00 [facility] DIFFERENTIAL [facility] PROTHROMBIN TIME/INR 2021-06-17 15:48:00 [facility] APTT 2021-06-17 15:48:00 [facility] TYPE AND SCREEN, 2021-06-17 15:48:00 [facility] AUTOMATED [facility] CBC W/PLT COUNT & AUTO 2021-06-17 15:48:00 Tino [facility] DIFFERENTIAL [facility] ECG 12-LEAD 2021-06-17 15:31:19 T[facility] HEMODIALYSIS INPATIENT 2021-06-17 08:22:41 Jersey Costello Wilner [facility] CBC W/PLT COUNT & AUTO 2021-06-17 04:15:00 Ahmad, [facility] BASIC METABOLIC PANEL 2021-06-17 04:15:00 Ahmad, [facility] MAGNESIUM 2021-06-17 04:15:00 Ahmad, [facility] PHOSPHORUS 2021-06-17 04:15:00 Ahmad, [facility] CBC W/PLT COUNT & AUTO 2021-06-17 04:15:00 Roni [facility] POCT-GLUCOSE METER 2021-06-16 23:59:00 [facility]SE [facility]ER 2021-06-16 18:00:00 Harjeet [facility] [place] CEREBRAL 4 VESSEL 2021-06-16 12:55:00 Eloy Portillo [facility] ANGIOGRAM [facility] PACEMAKER CHECK WITH 2021-06-16 10:00:[address] [facility] MR BRAIN WITHOUT IV 2021-06-16 09:57:00 Ladarius Jc [facility] CONTRAST [facility] PACEMAKER CHECK WITH 2021-06-16 09:31:48 Rosa Maria [facility] REPROGRAMMING [facility] POCT-GLUCOSE METER 2021-06-16 07:18:00 aHrjeet [facility] CBC W/PLT COUNT & AUTO 2021-06-16 04:21:00 Ahmad [facility] BASIC METABOLIC PANEL 2021-06-16 04:21:00 Ahmad, [facility] MAGNESIUM 2021-06-16 04:21:00 Ahmad [facility] PHOSPHORUS 2021-06-16 04:21:00 Ahmad, [facility] CBC W/PLT COUNT & AUTO 2021-06-16 04:21:00 Ahakild, [facility] POCT-GLUCOSE METER 2021-06-15 21:28:00 Harjeet [facility] CTA HEART CORONARY WITH 2021-06-15 18:20:00 Ahsarah, [facility] CALCIUM EVALUATION Medical Cente r WITHOUT FFR HEPATIC FUNCTION PANEL 2021-06-15 15:18:00 Harjeet [facility] ABORH, MANUAL 2021-06-15 05:54:00 Kelli Merrill [facility] PT/APTT 2021-06-15 04:16:00 Ahsarah [facility] CBC W/PLT COUNT & AUTO 2021-06-15 04:16:00 Ahsraah, [facility] BASIC METABOLIC PANEL 2021-06-15 04:16:00 Ahsarah, [facility] MAGNESIUM 2021-06-15 04:16:00 Ahsarah, [facility] PHOSPHORUS 2021-06-15 04:16:00 [facility], [facility] TYPE AND SCREEN, 2021-06-15 04:16:00 [facility], [facility] AUTOMATED [facility] CBC W/PLT COUNT & AUTO 2021-06-15 04:16:00 Ahmapamela, [facility] POCT-GLUCOSE METER 2021-06-14 11:09:00 Ladarius Jc [facility] nter POCT-GLUCOSE METER 2021-06-14 07:31:00 Ladarius Jc [facility] nter EEG 12-26 HR CONTINUOUS 2021-06-14 06:25:[address] [facility] MONITORING WITH VIDEO [facility] CBC W/PLT COUNT & AUTO 2021-06-14 04:05:00 Ahsarah [facility] BASIC METABOLIC PANEL 2021-06-14 04:05:00 Ahmad [facility] MAGNESIUM 2021-06-14 04:05:00 Ahmad [facility] PHOSPHORUS 2021-06-14 04:05:00 Ahmad, [facility] CBC W/PLT COUNT & AUTO 2021-06-14 04:05:00 Angel Saenz [facility] POCT-GLUCOSE METER 2021-06-13 17:10:00 Ladarius [facility] Ce nter POCT-GLUCOSE METER 2021-06-13 12:44:00 Ladarius Jc [facility] Ce nter HEPARIN ANTIBODY 2021-06-13 11:25:00 Kavitha Almodovar [facility] EEG 12-26 HR CONTINUOUS 2021-06-13 11:06:00 Pamela Orta [facility] MONITORING WITH VIDEO Medical Ce nter IRON, TIBC, % SAT. 2021-06-13 08:28:00 [facility]onAsh[facility]ClaudetteSt[facility] (WITHOUT FERRITIN[facility] Medical Cente r FERRITIN 2021-06-13 08:28:00 [facility] POCT-GLUCOSE METER 2021-06-13 08:27:00 Mary Kate Gracia [facility] CBC W/PLT COUNT & AUTO 2021-06-13 03:36:00 Ahsarah [facility] BASIC METABOLIC PANEL 2021-06-13 03:36:00 Ahmad [facility] MAGNESIUM 2021-06-13 03:36:00 Ahmad, [facility] PHOSPHORUS 2021-06-13 03:36:00 Ahmad, [facility] CBC W/PLT COUNT & AUTO 2021-06-13 03:36:00 Saenz, [facility] POCT-GLUCOSE METER 2021-06-13 01:48:00 Mary Kate Gracia [facility] HEMODIALYSIS INPATIENT 2021-06-12 23:02:53 FabienneBrienyl [facility] [facility] POCT-GLUCOSE METER 2021-06-12 18:54:00 Mary Kate Gracia [facility] SARS-COV2/RT-PCR ([facility] & 2021-06-12 17:07:00 Martinez Ricardo [facility] REF LABS) [facility] EEG AWAKE AND DROWSY 2021-06-12 12:20:00 Kavitha Almodovar [facility] CT BRAIN WITHOUT IV 2021-06-12 08:15:[address] [facility] POCT-GLUCOSE METER 2021-06-12 07:20:00 Mary Kate Gracia [facility] CTA BRAIN 2021-06-12 01:53[facility]00 [facility] 2021-06-12 01:53[facility] [facility] [address] [facility] WITHOUT IV 2021-06-12 01:31[facility]00 [facility] W/PLT COUNT & AUTO 2021-06-12 01:07:[address] [facility] HIGH SENSITIVITY TROPONIN 2021-06-12 01:07:00 Mary Kate Gracia I [facility] LACTIC ACID, VENOUS 2021-06-12 01:07:00 Mary Kate Gracia [facility] PROTHROMBIN TIME/INR 2021-06-12 01:07:00 Mary Kate Gracia [facility] CBC W/PLT COUNT & AUTO 2021-06-12 01:07:[address] [facility] BASIC METABOLIC PANEL 2021-06-12 00:49:00 Samia Tamayo [facility] MAGNESIUM 2021-06-12 00:49:00 Samia Tamayo [facility] PHOSPHORUS 2021-06-12 00:49:00 Roni, Samia [facility] ECG 12-LEAD 2021-06-12 00:43:57 Unknown, 7 [facility] ECG 12-LEAD 2021-06-12 00:43:57 Unknown, 7 [facility] ECG 12-LEAD 2021-06-12 00:43:57 Unknown, 7 [facility] ECG 12-LEAD 2021-06-12 00:40:07 Unknown, 7 [facility] ECG 12-LEAD 2021-06-12 00:40:07 Unknown, [address] ECG 12-LEAD 2021-06-12 00:39:50 Unknown, [address] ECG 12-LEAD 2021-06-12 00:39:50 Unknown, [address] ECG 12-LEAD 2021-06-12 00:39:50 Unknown, [address] POCT-GLUCOSE METER 2021-06-12 00:35:00 Samia [facility] POCT-GLUCOSE METER 2021-06-11 20:12:00 Samia [facility] POCT-GLUCOSE METER 2021-06-11 16:12:00 [facility] 2021-06-11 11:47:00 Jocelyne Alejandre [facility] POCT-GLUCOSE METER 2021-06-11 11:17:00 [facility] PACEMAKER CHECK 2021-06-11 10:59:25 Hernandez James [facility] POCT-GLUCOSE METER 2021-06-11 06:33:00 [facility] BLOOD CULTURE 2021-06-11 04:03:00 Jessica John [facility] CBC W/PLT COUNT & AUTO 2021-06-11 04:03:00 Ahmad, [facility] BASIC METABOLIC PANEL 2021-06-11 04:03:00 Ahmad [facility] MAGNESIUM 2021-06-11 04:03:00 Ahmad [facility] PHOSPHORUS 2021-06-11 04:03:00 Ahmad [facility] CBC W/PLT COUNT & AUTO 2021-06-11 04:03:[address] [facility] POCT-BLOOD GASES, VENOUS 2021-06-10 22:25:00 [facility] POCT-SODIUM 2021-06-10 22:25:00 [facility] POCT-POTASSIUM 2021-06-10 22:25:00 [facility] POCT-HEMOGLOBIN 2021-06-10 22:25:00 [facility] POCT-HEMATOCRIT 2021-06-10 22:25:00 [facility] POCT-GLUCOSE 2021-06-10 22:25:00 [facility] CBC W/PLT COUNT & AUTO 2021-06-10 22:23:00 Jessica John [facility] CBC W/PLT COUNT & AUTO 2021-06-10 22:23:00 Jessica John [facility] XR CHEST 1 VIEW PORTABLE 2021-06-10 22:14:00 Jessica John [facility] / BEDSIDE [facility] BLOOD CULTURE 2021-06-10 22:08:00 Jessica John [facility] LACTIC ACID, VENOUS 2021-06-10 22:07:00 Jessica John [facility] POCT-GLUCOSE METER 2021-06-10 21:20:00 Samia [facility] HEMODIALYSIS INPATIENT 2021-06-10 17:49:00 Wilner Aponte [facility] POCT-GLUCOSE METER 2021-06-10 16:22:00 [facility] POCT-GLUCOSE METER 2021-06-10 11:29:00 [facility] POCT-GLUCOSE METER 2021-06-10 07:27:00 [facility] CBC W/PLT COUNT & AUTO 2021-06-10 04:36[facility]OLIC PANEL 2021-06-10 04:36:00 Ahmad, [facility] MAGNESIUM 2021-06-10 04:36:00 Ahmad, [facility] PHOSPHORUS 2021-06-10 04:36:00 Ahmad, [facility] CBC W/PLT COUNT & AUTO 2021-06-10 04:36:[address] [facility] POCT-GLUCOSE METER 2021-06-09 21:22:00 Haj-Ismail, [facility] POCT-GLUCOSE METER 2021-06-09 16:16:00 Haj-Ismail, [facility] 2D ECHO W/ DOPPLER 2021-06-09 12:21:49 Rony Shin [facility] (CW/PW/COLOR) [facility] TRANSESOPHAGEAL ECHO 2021-06-09 09:04:02 Jocelyne Alejandre [facility] POCT-GLUCOSE METER 2021-06-09 06:11:00 Haj-Ismail, [facility] CBC W/PLT COUNT & AUTO 2021-06-09 03:34:00 [facility] BASIC METABOLIC PANEL 2021-06-09 03:34:00 Ahmad, [facility] MAGNESIUM 2021-06-09 03:34:00 Ahmad, [facility] PHOSPHORUS 2021-06-09 03:34:00 Ahmad, [facility] CBC W/PLT COUNT & AUTO 2021-06-09 03:34:[address] [facility] POCT-GLUCOSE METER 2021-06-08 21:03:00 bernardino-Isherbert [facility] HEMODIALYSIS INPATIENT 2021-06-08 15:21:58 Jersey Costello [facility] COLOR-FLOW MAPPING 2021-06-08 13:42:25 [facility] CONT WAVE PULSED DOPPLER 2021-06-08 13:42:25 Hill [facility] PTH, INTACT 2021-06-08 10:29:00 Jersey Costello [facility] HEPATITIS B SURFACE 2021-06-08 10:29:00 Real Delgado [facility] HEPATITIS PANEL, ACUTE 2021-06-08 10:29:00 Haj-Ismail [facility] POCT-GLUCOSE METER 2021-06-08 06:59:00 Jameson Kuo [facility] CBC W/PLT COUNT & AUTO 2021-06-08 05:00:00 [facility] BASIC METABOLIC PANEL 2021-06-08 05:00:00 sarah [facility] MAGNESIUM 2021-06-08 05:00:00 [facility] PHOSPHORUS 2021-06-08 05:00:00 [facility] PROTHROMBIN TIME/INR 2021-06-08 05:00:00 Anshul Acharya [facility] VITAMIN B12 2021-06-08 05:00:00 Anshul Acharya [facility] FERRITIN 2021-06-08 05:00:00 [facility]ON, [facility]BC, % SAT. 2021-06-08 05:00:00 Jersey Costello [facility] (WITHOUT FERRITIN) [facility] r VITAMIN D, 25-HYDROXY 2021-06-08 05:00:00 Jersey Costello [facility] CBC W/PLT COUNT & AUTO 2021-06-08 05:00:[address] [facility] US ABDOMEN LIMITED 2021-06-08 04:51:00 Anshul Acharya [facility] SARS-COV2/RT-PCR ([facility] & 2021-06-07 23:43:00 Angel Saenz Mikelcata dennis [facility] REF LABS) [facility] POCT-GLUCOSE METER 2021-06-07 23:11:00 ShielaJameson [facility] ECG 12-LEAD 2021-06-07 23:06:38 Unknown, Hl7 Doctor [facility] ECG 12-LEAD 2021-06-07 23:06:38 Unknown, Hl7 [facility] ECG 12-LEAD 2021-06-07 23:06:38 Unknown, 7 [facility] BLOOD CULTURE 2021-06-07 21:48:00 Anshul Acharya [facility] BLOOD CULTURE 2021-06-07 21:41:00 Anshul Acharya [facility] CBC W/PLT COUNT & AUTO 2021-06-07 21:41:[address] [facility] COMPREHENSIVE METABOLIC 2021-06-07 21:41:[address] [facility] VANCOMYCIN LEVEL, RANDOM 2021-06-07 21:41:00 Anshul Acharya [facility] CBC W/PLT COUNT & AUTO 2021-06-07 21:41:[address] [facility] XR CHEST 1 VIEW PORTABLE 2021-06-07 19:59:00 Anshul Acharya [facility] / BEDSIDE [facility] VASCULAR DIAGRAM -SCAN 2021-06-07 00:00:00 ProviderJudah [facility] CARDIAC CATH REPORT - 2021-06-07 00:00:00 ProviderJudah [facility] ARRYTHMIA IMPLANT REPORT 2021-06-07 00:00:00 ProviderJudah [facility] POCT GLUCOSE (AUTOMATED) 2021-05-22 23:19:00 Neil Thomas [facility] POCT GLUCOSE (AUTOMATED) 2021-05-22 17:36:00 Neil Thomas [facility] POCT GLUCOSE (AUTOMATED) 2021-05-22 13:43:00 Neil Thomas [facility] BASIC METABOLIC PANEL 2021-05-22 09:37:00 José Miguel Horn [facility] (NA, K, CL, CO2, GLUCOSE, Medica l Branch BUN, CREATININE, CA) CBC WITH DIFF 2021-05-22 09:37:00 José Miguel Horn [facility] GLUCOSE 2021-05-21 23:41:00 Ricki [facility] PROTEIN TOTAL 2021-05-21 23:41:00 Ricki [facility] LACTATE DEHYDROGENASE 2021-05-21 23:41:00 Candido Robison [facility] TROPONIN I 2021-05-21 23:41:00 Tameka Mcdaniels [facility] N-TERMINAL PRO-BNP 2021-05-21 23:41:00 José Miguel Horn [facility] POCT GLUCOSE (AUTOMATED) 2021-05-21 23:14:00 Neil Thomas [facility] POCT GLUCOSE (AUTOMATED) 2021-05-21 16:58:00 Neil Thomas [facility] POCT GLUCOSE (AUTOMATED) 2021-05-21 13:47:00 Neil Thomas [facility] XR CHEST 1 VW 2021-05-21 13:06:23 Gt becky [facility] VITAMIN B12, LEVEL 2021-05-21 12:51:00 Taina Del Real [facility] FOLATE 2021-05-21 12:51:00 Gt [facility] TROPONIN I 2021-05-21 12:51:00 Gt [facility] IRON PANEL 2021-05-21 12:51:00 Gt [facility] VITAMIN D, 25-OH 2021-05-21 12:51:00 Gt [facility] FERRITIN SERUM 2021-05-21 09:32:00 Gt [facility] TROPONIN I 2021-05-21 09:32:00 Gt [facility] HEPATIC FUNCTION PANEL 2021-05-21 09:32:00 Tiana Del Real [facility] ([id number]) (ALB,T.PRO,BILI Medical Branch T,BU/BC,ALT,AST,ALK PHOS) BASIC METABOLIC PANEL 2021-05-21 09:32:00 [facility] (NA, K, CL, CO2, GLUCOSE, Medica l Branch BUN, CREATININE, CA) DIFF CONSULT 2021-05-21 09:32:00 Gt [facility] CBC WITH DIFF 2021-05-21 09:32:00 [facility] N-TERMINAL PRO-BNP 2021-05-21 09:32:00 Gt [facility] POCT GLUCOSE (AUTOMATED) 2021-05-21 02:22:00 Neil Thomas [facility] XR CHEST 1 VW 2021-05-20 22:21:01 [facility]OM[facility]) 2021-05-20 22:14:00 Neil Thomas [facility] PH, BODY FLUID 2021-05-20 22:04:00 Candido Robison [facility] T.PROTEIN BODY FLUID 2021-05-20 22:04:00 Candido Robison [facility] BODY FLUID DIRECT COUNT 2021-05-20 22:04:[address] [facility] CYTO PLEURAL FLUID 2021-05-20 22:04:00 Candido Robison [facility] LDH TOTAL BODY FLUID 2021-05-20 22:04:00 Holly Redding [facility] AFB CULTURE 2021-05-20 21:50:00 Candido Robison [facility] BODY FLUID 2021-05-20 21:50:00 Candido Robison [facility] CULTURE(AEROBIC/ANAEROBIC Medica l Branch ) XR CHEST 1 VW 2021-05-20 19:13:[address] [facility] o f [facility] POCT GLUCOSE (AUTOMATED) 2021-05-20 16:59:00 [facility] ([facility]OMATED) 2021-05-20 13:25:00 Neil Thomas [facility] LACTATE DEHYDROGENASE 2021-05-20 09:50:00 [facility] BASIC METABOLIC PANEL 2021-05-20 09:50:00 Holly Redding [facility] (NA, K, CL, CO2, GLUCOSE, Medica l Branch BUN, CREATININE, CA) PROTHROMBIN TIME / INR 2021-05-20 09:50:00 Holly Red[facility] N-TERMINAL PRO-BNP 2021-05-20 09:50:00 Tameka Mcdaniels [facility] POCT GLUCOSE (AUTOMATED) 2021-05-20 01:35:00 Neil Thomas Uni [facility] POCT GLUCOSE (AUTOMATED) 2021-05-19 23:08:00 William Neil Uni [facility] POCT GLUCOSE (AUTOMATED) 2021-05-19 17:39:00 William Neil Uni [facility] POCT GLUCOSE (AUTOMATED) 2021-05-19 14:04:00 Neil Thomas Uni [facility] BASIC METABOLIC PANEL 2021-05-19 11:24:00 [facility] (NA, K, CL, CO2, GLUCOSE, Medica l Branch BUN, CREATININE, CA) CBC WITH DIFF 2021-05-19 11:24:00 [facility] N-TERMINAL PRO-BNP 2021-05-19 11:24:00 Tameka Mcdaniels [facility] HEPATITIS B SURFACE 2021-05-19 03:18:00 Sam[facility] ANTIBODY [facility] J [facility] HEPATITIS B SURFACE 2021-05-19 03:18:00 [facility] Francisca Baker [facility] POCT GLUCOSE (AUTOMATED) 2021-05-19 03:11:00 William Neil [facility] POCT GLUCOSE (AUTOMATED) 2021-05-18 22:43:00 Neil Thomas [facility] POCT GLUCOSE (AUTOMATED) 2021-05-18 17:46:00 [facility] ([facility]OMATED) 2021-05-18 17:04:00 William [facility] BASIC METABOLIC PANEL 2021-05-18 15:05:00 Holly Redding [facility] (NA, K, CL, CO2, GLUCOSE, Medica l Branch BUN, CREATININE, CA) POCT GLUCOSE (AUTOMATED) 2021-05-18 13:20:00 [facility] DISCLOSURE AND CONSENT, 2021-05-18 06:01:00 Doctor Unassigned, N o [facility] MEDICAL AND SURGICAL Name Medical Bra [facility] PROCEDURES POCT GLUCOSE (AUTOMATED) 2021-05-17 22:51:00 William Neil [facility] POCT GLUCOSE (AUTOMATED) 2021-05-17 17:51:00 William [facility] TRANSTHORACIC ECHO (TTE) 2021-05-17 15:04:37 [facility] ([facility]OMATED) 2021-05-17 14:14:00 [facility] PHOSPHORUS 2021-05-17 10:03:00 William [facility] MAGNESIUM 2021-05-17 10:03:00 William [facility] BASIC METABOLIC PANEL 2021-05-17 10:03:00 William [facility] (NA, K, CL, CO2, GLUCOSE, Medica l Branch BUN, CREATININE, CA) CBC WITHOUT DIFF 2021-05-17 10:03:00 William [facility] N-TERMINAL PRO-BNP 2021-05-17 10:03:00 [place] PO[facility]SE (AUTOMATED) 2021-05-16 22:34:00 [facility] POCT GLUCOSE (AUTOMATED) 2021-05-16 17:41:00 Neil Thomas [facility] POCT GLUCOSE (AUTOMATED) 2021-05-16 13:39:00 Neil Thomas [facility] MAGNESIUM 2021-05-16 08:09:00 William [facility] TROPONIN I 2021-05-16 08:09:00 William [facility] BASIC METABOLIC PANEL 2021-05-16 08:09:00 William [facility] (NA, K, CL, CO2, GLUCOSE, Medica l Branch BUN, CREATININE, CA) LIPID PANEL ([id number])(TOTAL 2021-05-16 08:09:00 Neil Thomas [facility] CHOLESTEROL, [facility] TRIGLYCERIDES, HDL) CBC WITHOUT DIFF 2021-05-16 08:09:00 William [facility] GLYCOSYLATED HEMOGLOBIN 2021-05-16 08:09:00 Hilario [facility] (A1C) Medical Branch PHOSPHORUS 2021-05-16 02:06:00 William [facility] TROPONIN I 2021-05-16 02:06:00 William [facility] POCT GLUCOSE (AUTOMATED) 2021-05-16 02:05:00 William Neil [facility] COVID-19 (ID NOW RAPID 2021-05-15 22:31:00 Dangelo Ibrahim [facility] TESTING) Medical Branch LAB ONLY COVID 2021-05-15 22:31:00 Dangelo Ibrahim [facility] INTERPRETATION [facility] XR KNEE <3 VW RIGHT 2021-05-15 22:12:44 Dangelo Ibrahim [facility] CT CHEST PULMONARY 2021-05-15 22:00:00 Dangelo Ibrahim [facility] ANGIOGRAM Medical Branch XR CHEST 1 VW 2021-05-15 20:32:18 [facility] LIPASE 2021-05-15 19:37:00 [facility] MAGNESIUM 2021-05-15 19:37:00 [facility] TROPONIN I 2021-05-15 19:37:00 [facility] THYROID STIMULATING 2021-05-15 19:37:00 [facility] COMP. METABOLIC PANEL 2021-05-15 19:37:00 [facility] ([id number]) Medical Branch CBC WITH DIFF 2021-05-15 19:37:00 [facility] GLYCOSYLATED HEMOGLOBIN 2021-05-15 19:37:00 [facility] PROTHROMBIN TIME / INR 2021-05-15 19:37:00 Singer Dangelo [facility] D-DIMER 2021-05-15 19:37:00 [facility] N-TERMINAL PRO-BNP 2021-05-15 19:37:00 Dangelo Ibrahim [facility] HB ECG ROUTINE & RHYTHM 2021-05-15 19:13:17 Singer Dangelo [facility] NOTICE OF PRIVACY 2021-05-15 18:55:45 Doctor Unassigned, No [facility] CONSENT/REFUSAL FOR 2021-05-15 18:55:20 [facility]assigned, [facility] HOSPITAL ADMISSION 2021-05-15 06:01:00 Doctor Unassigned, No [facility] Chest Single View 2019-02-17 00:00:00 [facility] ermivelisse Influenza Type A Antigen 2019-02-17 00:00:00 Mem oridavid Solomon Screen Influenza Type B Antigen 2019-02-17 00:00:00 Mem orial Juanito Screen Culture & Sensitivity 2019-01-25 00:00:00 Talisha Suarez Chest Pa And Lat (2 2019-01-25 00:00:00 [facility] Views) Anaerobic Blood Culture 2018-10-09 00:00:00 Dickson Solomon Aerobic Blood Culture 2018-10-09 00:00:00 Talisha Suarez Gram Stain 2018-10-09 00:00:00 [facility] Anaerobic Culture 2018-10-09 00:00:00 Trey rogers Plan of Care Planned Activity Planned Date Details Comments Source Future Scheduled 2031-07-[address] [facility] neoplasm [facility] colon (procedure) [code = 039310450] Future Scheduled 2031-07-[address] [facility] 00:00:00 [facility] colon (procedure) [code = 507592966] Future Scheduled 2031-07-[address] [facility] 00:00:00 [facility] colon (procedure) [code = 179736421] Future Scheduled 2031-07-[address] [facility] 00:00:00 [facility] colon (procedure) [code = 717160581] Future Scheduled 2031-07-[address] [facility] 00:00:00 [facility] colon (procedure) [code = 838622501] Future Scheduled 2031-07-[address] [facility] 00:00:00 [facility] colon (procedure) [code = 853722954] Future Scheduled 2031-07-[address] [facility] 00:00:00 [facility] colon (procedure) [code = 587717184] Future Scheduled 2031-07-[address] [facility] 00:00:00 [facility] colon (procedure) [code = 116660924] Future Scheduled 2031-07-[address] [facility] 00:00:00 [facility] colon (procedure) [code = 467069435] Future Scheduled 2031-07-[address] [facility] 00:00:00 [facility] colon (procedure) [code = 825544724] Future Scheduled 2031-07-[address] [facility] 00:00:00 [facility] colon (procedure) [code = 091459141] Future Scheduled 2031-07-[address] [facility] 00:00:00 [facility] colon (procedure) [code = 410047733] Future Scheduled 2031-07-[address] [facility] 00:00:00 [facility] colon (procedure) [code = 295920440] Future Scheduled 2031-07-[address] [facility] 00:00:00 [facility] colon (procedure) [code = 665820401] Future Scheduled 2031-07-[address] [facility] 00:00:00 [facility] colon (procedure) [code = 162760497] Future Scheduled 2031-07-[address] [facility] 00:00:00 [facility] colon (procedure) [code = 507496839] Future Scheduled 2023-04-[address] [facility] 00:00:00 [facility] cervix (procedure) [code = 914990975] Future Scheduled 2023-04-[address] [facility] 00:00:00 [facility] cervix (procedure) [code = 316574553] Future Scheduled 2023-04-[address] [facility] 00:00:00 [facility] cervix (procedure) [code = 423481097] Future Scheduled 2023-04-[address] [facility] 00:00:00 [facility] cervix (procedure) [code = 411830254] Future Scheduled 2023-04-[address] [facility] 00:00:00 [facility] cervix (procedure) [code = 531695206] Future Scheduled 2023-04-[address] [facility] 00:00:00 malignant [facility] cervix (procedure) [code = 629709014] Future Scheduled 2023-04-[address] [facility] 00:00:00 [facility] cervix (procedure) [code = 858367186] Future Scheduled 2023-04-[address] [facility] 00:00:00 [facility] cervix (procedure) [code = 033202346] Future Scheduled 2023-04-[address] [facility] 00:00:00 [facility] cervix (procedure) [code = 883706601] Future Scheduled 2023-04-[address] [facility] 00:00:00 [facility] cervix (procedure) [code = 213524690] Future Scheduled 2023-04-[address] [facility] 00:00:00 [facility] cervix (procedure) [code = 749669396] Future Scheduled 2023-04-[address] [facility] 00:00:00 malignant [facility] cervix (procedure) [code = 461320695] Future Scheduled 2023-04-[address] [facility] 00:00:00 malignant [facility] cervix (procedure) [code = 708825275] Future Scheduled 2023-04-[address] [facility] 00:00:00 malignant [facility] cervix (procedure) [code = 056604615] Future Scheduled 2023-04-[address] [facility] 00:00:00 malignant [facility] cervix (procedure) [code = 901205191] Future Scheduled 2023-04-[address] [facility] 00[facility]00:00 [facility] cervix (procedure) [code = 444155422] Future Scheduled 2023-04-[address] 00:00:00 malignant [facility] cervix (procedure) [code = 160974029] Future Scheduled [address] [...] Cessation Counseling and Screening (12+)] Future Scheduled 2022-06-[address] [facility] Test 00:00:00 Counseling and Medical Cente r Screening (12+) [code = Tobacco Cessation Counseling and Screening (12+)] Future Scheduled 2022-04-[address] [facility] Test 00:00:00 (12+) [code = Medical Center DEPRESSION SCREENING (12+)] Future Scheduled 2022-03-26 COVID-19 VACCINE (#1) [facility] Test 05:32:52 [code = COVID-19 VACCINE (#1)] Future Scheduled 2022-03-26 [facility] [facility]:52 malignant neoplasm of cervix (procedure) [code = [id number]] Future Scheduled 2022-03-26 COLONOSCOPY SCREENING [facility] Test 05:32:52 [code = COLONOSCOPY SCREENING] Future Scheduled 2022-03-26 SHINGLES VACCINES (1 Met [facility] Test 05:32:52 of 2) [code = SHINGLES VACCINES (1 of 2)] Future Scheduled 2022-03-26 BREAST CANCER [facility] Test 05:32:52 SCREENING [code = BREAST CANCER SCREENING] Future Scheduled 2022-03-26 INFLUENZA VACCINE Method [facility] Test 05:32:52 [code = INFLUENZA VACCINE] Future Scheduled 2022-03-26 COVID-19 VACCINE (#1) [facility] Test 05:32:52 [code = COVID-19 VACCINE (#1)] Future Scheduled 2022-03-26 Screening for [facility] Test 05:32:52 malignant neoplasm of cervix (procedure) [code = [id number]] Future Scheduled 2022-03-26 COLONOSCOPY SCREENING [facility] Test 05:32:52 [code = COLONOSCOPY SCREENING] Future Scheduled 2022-03-26 SHINGLES VACCINES (1 Met [facility] Test 05:32:52 of 2) [code = SHINGLES VACCINES (1 of 2)] Future Scheduled 2022-03-26 BREAST CANCER [facility] Test 05:32:52 SCREENING [code = BREAST CANCER SCREENING] Future Scheduled 2022-03-26 INFLUENZA VACCINE Method [facility] Test 05:32:52 [code = INFLUENZA VACCINE] Future Scheduled 2022-02-05 HEPATITIS B VACCINES Met [facility] Test 07:30:57 (1 of 3 - 3-dose series) [code = HEPATITIS B VACCINES (1 of 3 - 3-dose series)] Future Scheduled 2022-02-05 COVID-19 VACCINE (#1) [facility] Test 07:30:57 [code = COVID-19 VACCINE (#1)] Future Scheduled 2022-02-05 Screening for [facility] Test 07:30:57 malignant neoplasm of cervix (procedure) [code = [id number]] Future Scheduled 2022-02-05 COLONOSCOPY SCREENING [facility] Test 07:30:57 [code = COLONOSCOPY SCREENING] Future Scheduled 2022-02-05 SHINGLES VACCINES (1 Met [facility] Test 07:30:57 of 2) [code = SHINGLES VACCINES (1 of 2)] Future Scheduled 2022-02-05 BREAST CANCER [facility] Test 07:30:57 SCREENING [code = BREAST CANCER SCREENING] Future Scheduled 2022-02-05 INFLUENZA VACCINE Method [facility] Test 07:30:57 [code = INFLUENZA VACCINE] Future Scheduled 2021-12-11 HEPATITIS B VACCINES Met [facility] Test 12:22:17 (1 of 3 - 3-dose series) [code = HEPATITIS B VACCINES (1 of 3 - 3-dose series)] Future Scheduled 2021-12-11 COVID-19 VACCINE (#1) [facility] Test 12:22:17 [code = COVID-19 VACCINE (#1)] Future Scheduled 2021-12-11 Screening for [facility] Test 12:22:17 malignant neoplasm of cervix (procedure) [code = [id number]] Future Scheduled 2021-12-11 COLONOSCOPY SCREENING [facility] Test 12:22:17 [code = COLONOSCOPY SCREENING] Future Scheduled 2021-12-11 SHINGLES VACCINES (1 Met [facility] Test 12:22:17 of 2) [code = SHINGLES VACCINES (1 of 2)] Future Scheduled 2021-12-11 BREAST CANCER [facility] Test 12:22:17 SCREENING [code = BREAST CANCER SCREENING] Future Scheduled 2021-12-11 INFLUENZA VACCINE Method [facility] Test 12:22:17 [code = INFLUENZA VACCINE] Future Scheduled 2021-12-11 HEPATITIS B VACCINES Met [facility] Test 12:22:17 (1 of 3 - 3-dose series) [code = HEPATITIS B VACCINES (1 of 3 - 3-dose series)] Future Scheduled 2021-12-11 COVID-19 VACCINE (#1) [facility] Test 12:22:17 [code = COVID-19 VACCINE (#1)] Future Scheduled 2021-12-11 Screening for [facility] Test 12:22:17 malignant neoplasm of cervix (procedure) [code = [id number]] Future Scheduled 2021-12-11 COLONOSCOPY SCREENING [facility] Test 12:22:17 [code = COLONOSCOPY SCREENING] Future Scheduled 2021-12-11 SHINGLES VACCINES (1 Met [facility] Test 12:22:17 of 2) [code = SHINGLES VACCINES (1 of 2)] Future Scheduled 2021-12-11 BREAST CANCER [facility] Test 12:22:17 SCREENING [code = BREAST CANCER SCREENING] Future Scheduled 2021-12-11 INFLUENZA VACCINE Method [facility] Test 12:22:17 [code = INFLUENZA VACCINE] Future Scheduled 2021-12-11 HEPATITIS B VACCINES Met [facility] Test 12:22:17 (1 of 3 - 3-dose series) [code = HEPATITIS B VACCINES (1 of 3 - 3-dose series)] Future Scheduled 2021-12-11 COVID-19 VACCINE (#1) [facility] Test 12:22:17 [code = COVID-19 VACCINE (#1)] Future Scheduled 2021-12-11 Screening for [facility] Test 12:22:17 malignant neoplasm of cervix (procedure) [code = [id number]] Future Scheduled 2021-12-11 COLONOSCOPY SCREENING [facility] Test 12:22:17 [code = COLONOSCOPY SCREENING] Future Scheduled 2021-12-11 SHINGLES VACCINES (1 Met [facility] Test 12:22:17 of 2) [code = SHINGLES VACCINES (1 of 2)] Future Scheduled 2021-12-11 BREAST CANCER [facility] Test 12:22:17 SCREENING [code = BREAST CANCER SCREENING] Future Scheduled 2021-12-11 INFLUENZA VACCINE Method [facility] Test 12:22:17 [code = INFLUENZA VACCINE] Future Scheduled 2021-12-11 HEPATITIS B VACCINES Met [facility] Test 12:22:17 (1 of 3 - 3-dose series) [code = HEPATITIS B VACCINES (1 of 3 - 3-dose series)] Future Scheduled 2021-12-11 COVID-19 VACCINE (#1) [facility] Test 12:22:17 [code = COVID-19 VACCINE (#1)] Future Scheduled 2021-12-11 Screening for [facility] Test 12:22:17 malignant neoplasm of cervix (procedure) [code = [id number]] Future Scheduled 2021-12-11 COLONOSCOPY SCREENING [facility] Test 12:22:17 [code = COLONOSCOPY SCREENING] Future Scheduled 2021-12-11 SHINGLES VACCINES (1 Met [facility] Test 12:22:17 of 2) [code = SHINGLES VACCINES (1 of 2)] Future Scheduled 2021-12-11 BREAST CANCER [facility] Test 12:22:17 SCREENING [code = BREAST CANCER SCREENING] Future Scheduled 2021-12-11 INFLUENZA VACCINE Method [facility] Test 12:22:17 [code = INFLUENZA VACCINE] Future [...] Future Scheduled 2021-12-02 HEPATITIS B VACCINES Met [facility] Test 19:59:35 (1 of 3 - 3-dose series) [code = HEPATITIS B VACCINES (1 of 3 - 3-dose series)] Future Scheduled 2021-12-02 COVID-19 VACCINE (#1) [facility] Test 19:59:35 [code = COVID-19 VACCINE (#1)] Future Scheduled 2021-12-02 [facility] Test 19:59:35 malignant neoplasm of cervix (procedure) [code = [id number]] Future Scheduled 2021-12-02 COLONOSCOPY SCREENING [facility] Test 19:59:35 [code = COLONOSCOPY SCREENING] Future Scheduled 2021-12-02 SHINGLES VACCINES (1 Met [facility] Test 19:59:35 of 2) [code = SHINGLES VACCINES (1 of 2)] Future Scheduled 2021-12-02 BREAST CANCER [facility] Test 19:59:35 SCREENING [code = BREAST CANCER SCREENING] Future Scheduled 2021-12-02 INFLUENZA VACCINE Method [facility] Test 19:59:35 [code = INFLUENZA VACCINE] Future Scheduled 2021-07-08 COVID-19 VACCINE (1) Met [facility] Test 18:18:56 [code = COVID-19 VACCINE (1)] Future Scheduled 2021-07-08 DIABETES: RETINAL EYE [facility] Test 18:18:56 EXAM [code = DIABETES: RETINAL EYE EXAM] Future Scheduled 2021-07-08 DIABETIC FOOT EXAM [facility] Test 18:18:56 [code = DIABETIC FOOT EXAM] Future Scheduled 2021-07-08 COLONOSCOPY SCREENING [facility] Test 18:18:56 [code = COLONOSCOPY SCREENING] Future Scheduled 2021-07-08 SHINGLES VACCINES (#1) [facility] Test 18:18:56 [code = SHINGLES VACCINES (#1)] Future Scheduled 2021-07-08 [facility]ER [facility] 18:18:56 SCREENING [code = BREAST CANCER SCREENING] Future Scheduled 2021-07-08 Screening for [facility] Test 18:18:56 malignant neoplasm of cervix (procedure) [code = [id number]] Future Scheduled 2021-07-08 INFLUENZA VACCINE Method [facility] Test 18:18:56 [code = INFLUENZA VACCINE] Future Scheduled 2021-06-26 COVID-19 VACCINE (1) Met [facility] Test 14:10:19 [code = COVID-19 VACCINE (1)] Future Scheduled 2021-06-26 DIABETES: RETINAL EYE [facility] Test 14:10:19 EXAM [code = DIABETES: RETINAL EYE EXAM] Future Scheduled 2021-06-26 DIABETIC FOOT EXAM [facility] Test 14:10:19 [code = DIABETIC FOOT EXAM] Future Scheduled 2021-06-26 COLONOSCOPY SCREENING [facility] Test 14:10:19 [code = COLONOSCOPY SCREENING] Future Scheduled 2021-06-26 SHINGLES VACCINES (#1) M [facility] Test 14:10:19 [code = SHINGLES VACCINES (#1)] Future Scheduled 2021-06-26 BREAST CANCER [facility] Test 14:10:19 SCREENING [code = BREAST CANCER SCREENING] Future Scheduled 2021-06-26 [facility] for [facility] Test 14:10:19 malignant neoplasm of cervix (procedure) [code = 048020289] Future Scheduled 2021-06-26 INFLUENZA VACCINE [facility] Test 14:10:19 [code = INFLUENZA VACCINE] Future Scheduled 2021-06-26 COVID-19 VACCINE (1) Met [facility] Test 14:10:19 [code = COVID-19 VACCINE (1)] Future Scheduled 2021-06-26 DIABETES: RETINAL EYE [facility] Test 14:10:19 EXAM [code = DIABETES: RETINAL EYE EXAM] Future Scheduled 2021-06-26 DIABETIC FOOT EXAM [facility] Test 14:10:19 [code = DIABETIC FOOT EXAM] Future Scheduled 2021-06-26 COLONOSCOPY SCREENING [facility] Test 14:10:19 [code = COLONOSCOPY SCREENING] Future Scheduled 2021-06-26 SHINGLES VACCINES (#1) M [facility] Test 14:10:19 [code = SHINGLES VACCINES (#1)] Future Scheduled 2021-06-26 BREAST CANCER [facility] Test 14:10:19 SCREENING [code = BREAST CANCER SCREENING] Future Scheduled 2021-06-26 [facility] for [facility] Test 14:10:19 malignant neoplasm of cervix (procedure) [code = [id number]] Future Scheduled 2021-06-26 INFLUENZA VACCINE [facility] Test 14:10:19 [code = INFLUENZA VACCINE] Future Scheduled 2021-06-26 COVID-19 VACCINE (1) [facility] Test 14:10:19 [code = COVID-19 VACCINE (1)] Future Scheduled 2021-06-26 DIABETES: RETINAL EYE [facility] Test 14:10:19 EXAM [code = DIABETES: RETINAL EYE EXAM] Future Scheduled 2021-06-26 DIABETIC FOOT EXAM [facility] Test 14:10:19 [code = DIABETIC FOOT EXAM] Future Scheduled 2021-06-26 COLONOSCOPY SCREENING [facility] Test 14:10:19 [code = COLONOSCOPY SCREENING] Future Scheduled 2021-06-26 SHINGLES VACCINES (#1) M [facility] Test 14:10:19 [code = SHINGLES VACCINES (#1)] Future Scheduled 2021-06-26 BREAST CANCER [facility] Test 14:10:19 SCREENING [code = BREAST CANCER SCREENING] Future Scheduled 2021-06-26 [facility] Test 14:10:19 malignant neoplasm of cervix (procedure) [code = 504677541] Future Scheduled 2021-06-26 INFLUENZA VACCINE Method [facility] Test 14:10:19 [code = INFLUENZA VACCINE] Future Scheduled 2021-06-26 COVID-19 VACCINE (1) [facility] Test 14:10:19 [code = COVID-19 VACCINE (1)] Future Scheduled 2021-06-26 DIABETES: RETINAL EYE [facility] Test 14:10:19 EXAM [code = DIABETES: RETINAL EYE EXAM] Future Scheduled 2021-06-26 DIABETIC FOOT EXAM [facility] Test 14:10:19 [code = DIABETIC FOOT EXAM] Future Scheduled 2021-06-26 COLONOSCOPY SCREENING [facility] Test 14:10:19 [code = COLONOSCOPY SCREENING] Future Scheduled 2021-06-26 SHINGLES VACCINES (#1) M [facility] Test 14:10:19 [code = SHINGLES VACCINES (#1)] Future Scheduled 2021-06-26 BREAST CANCER [facility] Test 14:10:19 SCREENING [code = BREAST CANCER SCREENING] Future Scheduled 2021-06-26 [facility] Test 14:10:19 malignant neoplasm of cervix (procedure) [code = [id number]] Future Scheduled 2021-06-26 INFLUENZA VACCINE Method [facility] Test 14:10:19 [code = INFLUENZA VACCINE] Future Scheduled 2021-06-26 COVID-19 VACCINE (1) Met [facility] Test 14:10:19 [code = COVID-19 VACCINE (1)] Future Scheduled 2021-06-26 DIABETES: RETINAL EYE [facility] Test 14:10:19 EXAM [code = DIABETES: RETINAL EYE EXAM] Future Scheduled 2021-06-26 DIABETIC FOOT EXAM [facility] Test 14:10:19 [code = DIABETIC FOOT EXAM] Future Scheduled 2021-06-26 COLONOSCOPY SCREENING [facility] Test 14:10:19 [code = COLONOSCOPY SCREENING] Future Scheduled 2021-06-26 SHINGLES VACCINES (#1) M [facility] Test 14:10:19 [code = SHINGLES VACCINES (#1)] Future Scheduled 2021-06-26 BREAST CANCER [facility] Test 14:10:19 SCREENING [code = BREAST CANCER SCREENING] Future Scheduled 2021-06-26 [facility] Test 14:10:19 malignant neoplasm of cervix (procedure) [code = 080503079] Future Scheduled 2021-06-26 INFLUENZA VACCINE Method [facility] Test 14:10:19 [code = INFLUENZA VACCINE] Future Scheduled 2021-06-26 COVID-19 VACCINE (1) [facility] Test 14:10:19 [code = COVID-19 VACCINE (1)] Future Scheduled 2021-06-26 DIABETES: RETINAL EYE [facility] Test 14:10:19 EXAM [code = DIABETES: RETINAL EYE EXAM] Future Scheduled 2021-06-26 DIABETIC FOOT EXAM [facility] Test 14:10:19 [code = DIABETIC FOOT EXAM] Future Scheduled 2021-06-26 COLONOSCOPY SCREENING [facility] Test 14:10:19 [code = COLONOSCOPY SCREENING] Future Scheduled 2021-06-26 SHINGLES VACCINES (#1) [facility] Test 14:10:19 [code = SHINGLES VACCINES (#1)] Future Scheduled 2021-06-26 BREAST CANCER [facility] Test 14:10:19 SCREENING [code = BREAST CANCER SCREENING] Future Scheduled 2021-06-26 [facility] Test 14:10:19 malignant neoplasm of cervix (procedure) [code = [id number]] Future Scheduled 2021-06-26 INFLUENZA VACCINE Method [facility] Test 14:10:19 [code = INFLUENZA VACCINE] Future Scheduled 2021-06-26 COVID-19 VACCINE (1) [facility] Test 14:10:19 [code = COVID-19 VACCINE (1)] Future Scheduled 2021-06-26 DIABETES: RETINAL EYE [facility] Test 14:10:19 EXAM [code = DIABETES: RETINAL EYE EXAM] Future Scheduled 2021-06-26 DIABETIC FOOT EXAM [facility] Test 14:10:19 [code = DIABETIC FOOT EXAM] Future Scheduled 2021-06-26 COLONOSCOPY SCREENING [facility] Test 14:10:19 [code = COLONOSCOPY SCREENING] Future Scheduled 2021-06-26 SHINGLES VACCINES (#1) M [facility] Test 14:10:19 [code = SHINGLES VACCINES (#1)] Future Scheduled 2021-06-26 BREAST CANCER [facility] Test 14:10:19 SCREENING [code = BREAST CANCER SCREENING] Future Scheduled 2021-06-26 [facility] Test 14:10:19 malignant neoplasm of cervix (procedure) [code = 291301153] Future Scheduled 2021-06-26 INFLUENZA VACCINE [facility] Test 14:10:19 [code = INFLUENZA VACCINE] Future Scheduled 2021-06-26 COVID-19 VACCINE (1) [facility] Test 14:10:19 [code = COVID-19 VACCINE (1)] Future Scheduled 2021-06-26 DIABETES: RETINAL EYE [facility] Test 14:10:19 EXAM [code = DIABETES: RETINAL EYE EXAM] Future Scheduled 2021-06-26 DIABETIC FOOT EXAM [facility] Test 14:10:19 [code = DIABETIC FOOT EXAM] Future Scheduled 2021-06-26 COLONOSCOPY SCREENING [facility] Test 14:10:19 [code = COLONOSCOPY SCREENING] Future Scheduled 2021-06-26 SHINGLES VACCINES (#1) M [facility] Test 14:10:19 [code = SHINGLES VACCINES (#1)] Future Scheduled 2021-06-26 BREAST CANCER [facility] Test 14:10:19 SCREENING [code = BREAST CANCER SCREENING] Future Scheduled 2021-06-26 [facility] Test 14:10:19 malignant neoplasm of cervix (procedure) [code = 645654556] Future Scheduled 2021-06-26 INFLUENZA VACCINE Method [facility] Test 14:10:19 [code = INFLUENZA VACCINE] Future Scheduled 2021-06-26 COVID-19 VACCINE (1) [facility] Test 14:10:19 [code = COVID-19 VACCINE (1)] Future Scheduled 2021-06-26 DIABETES: RETINAL EYE [facility] Test 14:10:19 EXAM [code = DIABETES: RETINAL EYE EXAM] Future Scheduled 2021-06-26 DIABETIC FOOT EXAM [facility] Test 14:10:19 [code = DIABETIC FOOT EXAM] Future Scheduled 2021-06-26 COLONOSCOPY SCREENING [facility] Test 14:10:19 [code = COLONOSCOPY SCREENING] Future Scheduled 2021-06-26 SHINGLES VACCINES (#1) [facility] Test 14:10:19 [code = SHINGLES VACCINES (#1)] Future Scheduled 2021-06-26 BREAST CANCER [facility] Test 14:10:19 SCREENING [code = BREAST CANCER SCREENING] Future Scheduled 2021-06-26 [facility] Test 14:10:19 malignant neoplasm of cervix (procedure) [code = 036192527] Future Scheduled 2021-06-26 INFLUENZA VACCINE [facility] Test 14:10:19 [code = INFLUENZA VACCINE] Future Scheduled 2021-06-[address] [facility] Test 00:00:00 (procedure) [code = [facility] [id number]] Future Scheduled 2021-06-[address] [facility] Test 00:00:00 (procedure) [code = [facility] [id number]] Future Scheduled 2021-06-[address] [facility] Test 00:00:00 (procedure) [code = [facility] [id number]] Future Scheduled 2021-06-[address] [facility] Test 00:00:00 (procedure) [code = [facility] [id number]] Future Scheduled 2021-06-[address] [facility] Test 00:00:00 (procedure) [code = [facility] [id number]] Future Scheduled 2021-06-[address] [facility] Test 00:00:00 (procedure) [code = [facility] [id number]] Future Scheduled 2021-06-[address] [facility] Test 00:00:00 (procedure) [code = [facility] [id number]] Future Scheduled 2021-06-[address] [facility] Test 00:00:00 (procedure) [code = [facility] [id number]] Future Scheduled 2021-06-[address] [facility] Test 00:00:00 (procedure) [code = [facility] [id number]] Future Scheduled 2021-06-[address] [facility] Test 00:00:00 (procedure) [code = [facility] [id number]] Future Scheduled 2021-06-[address] [facility] Test 00:00:00 (procedure) [code = [facility] 70852879] Future Scheduled 2021-06-[address] [facility] Test 00:00:00 (procedure) [code = [facility] [id number]] Future Scheduled 2021-06-[address] [facility] Test 00:00:00 (procedure) [code = [facility] [id number]] Future Scheduled 2021-06-[address] [facility] Test 00:00:00 (procedure) [code = [facility] [id number]] Future Scheduled 2021-06-[address] [facility] Test 00:00:00 (procedure) [code = [facility] [id number]] Future Scheduled 2021-06-[address] [facility] Test 00:00:00 (procedure) [code = [facility] [id number]] Future Scheduled 2021-06-[address] [facility] Test 00:00:00 (procedure) [code = [facility] [id number]] Future Scheduled 2021-06-10 COVID-19 VACCINE (1) Met [facility] Test 17:58:22 [code = COVID-19 VACCINE (1)] Future Scheduled 2021-06-10 DIABETES: RETINAL EYE [facility] Test 17:58:22 EXAM [code = DIABETES: RETINAL EYE EXAM] Future Scheduled 2021-06-10 DIABETIC FOOT EXAM [facility] Test 17:58:22 [code = DIABETIC FOOT EXAM] Future Scheduled 2021-06-10 COLONOSCOPY SCREENING [facility] Test 17:58:22 [code = COLONOSCOPY SCREENING] Future Scheduled 2021-06-10 SHINGLES [facility]ACCIN[facility] (#1[facility] 17:58:22 [code = SHINGLES VACCINES (#1)] Future Scheduled 2021-06-10 BREAST CANCER [facility] Test 17:58:22 SCREENING [code = BREAST CANCER SCREENING] Future Scheduled 2021-06-10 [facility] Test 17:58:22 malignant neoplasm of cervix (procedure) [code = 584880445] Future Scheduled 2021-06-10 INFLUENZA VACCINE [facility] Test 17:58:22 [code = INFLUENZA VACCINE] Future Scheduled 2021-05-12 COVID-19 VACCINE (1) Met [facility] Test 00:12:28 [code = COVID-19 VACCINE (1)] Future Scheduled 2021-05-12 DIABETES: RETINAL EYE [facility] Test 00:12:28 EXAM [code = DIABETES: RETINAL EYE EXAM] Future Scheduled 2021-05-12 DIABETIC FOOT EXAM [facility] Test 00:12:28 [code = DIABETIC FOOT EXAM] Future Scheduled 2021-05-12 COLONOSCOPY SCREENING [facility] Test 00:12:28 [code = COLONOSCOPY SCREENING] Future Scheduled 2021-05-12 SHINGLES VACCINES (#1) [facility] Test 00:12:28 [code = SHINGLES VACCINES (#1)] Future Scheduled 2021-05-12 BREAST CANCER [facility] Test 00:12:28 SCREENING [code = BREAST CANCER SCREENING] Future Scheduled 2021-05-12 Screening for [facility] Test 00:12:28 malignant neoplasm of cervix (procedure) [code = 063223898] Future Scheduled 2021-05-12 INFLUENZA VACCINE [facility] Test 00:12:28 [code = INFLUENZA [...] (12+)] Future Scheduled 2021-02-11 COVID-19 VACCINE (1) [facility] Test 13:55:42 [code = COVID-19 VACCINE (1)] Future Scheduled 2021-02-11 DIABETES: RETINAL EYE [facility] Test 13:55:42 EXAM [code = DIABETES: RETINAL EYE EXAM] Future Scheduled 2021-02-11 DIABETIC FOOT EXAM [facility] Test 13:55:42 [code = DIABETIC FOOT EXAM] Future Scheduled 2021-02-11 COLONOSCOPY SCREENING [facility] Test 13:55:42 [code = COLONOSCOPY SCREENING] Future Scheduled 2021-02-11 SHINGLES VACCINES (#1) [facility] Test 13:55:42 [code = SHINGLES VACCINES (#1)] Future Scheduled 2021-02-11 BREAST CANCER [facility] Test 13:55:42 SCREENING [code = BREAST CANCER SCREENING] Future Scheduled 2021-02-11 Screening for [facility] Test 13:55:42 malignant neoplasm of cervix (procedure) [code = 770286017] Future Scheduled 2021-02-11 INFLUENZA VACCINE [facility] Test 13:55:42 [code = INFLUENZA [...] 00:00:00 [facility] (procedure) [code = 19724622] Future Scheduled 2020-08-[address] [facility] (procedure) [code = 01093466] Future Scheduled 2020-08-28 Hemoglobin A1c [facility] (procedure[facility] [code = 88148569] Future Scheduled 2020-08-[address] [facility] (procedure[facility] [code = 18491171] Future Scheduled 2020-08-[address] [facility] (procedure) [code = 96842398] Future Scheduled 2020-08-[address] [facility] (procedure) [code = 55381865] Future Scheduled 2020-08-[address] [facility] (procedure) [code = 59549506] Future Scheduled 2020-08-[address] [facility] (procedure) [code = 73029914] Future Scheduled 2020-08-[address] [facility] (procedure) [code = 45530169] Future Scheduled 2020-08-[address] [facility] (procedure) [code = 64379058] Future Scheduled 2020-08-[address] [facility] (procedure) [code = 63340151] Future Scheduled 2020-08-[address] [facility] (procedure) [code = 18400144] Future Scheduled 2020-08-[address] [facility] (procedure) [code = 03718067] Future Scheduled 2020-08-[address] [facility] (procedure) [code = 52164679] Future Scheduled 2020-08-[address] [facility] (procedure) [code = 41351011] Future Scheduled 2020-08-[address] [facility] 00:[facility]00 [facility] (procedure) [code = 70460947] Future Scheduled 2020-08-[address] [facility] 00:00:00 [facility] (procedure) [code = 14566341] Future Scheduled 2019-11-[address] [facility] breast (procedure) [code = 975872050] Future Scheduled 2019-11-[address] [facility] breast (procedure) [code = 954415151] Future Scheduled 2019-11-[address] [facility] breast (procedure) [code = 664490684] Future Scheduled 2019-11-[address] [facility] breast (procedure) [code = 263678390] Future Scheduled 2019-11-[address] [facility] breast (procedure) [code = 635023442] Future Scheduled 2019-11-[address] [facility] 00:[facility]:00 [facility] breast (procedure) [code = 024823900] Future Scheduled 2019-11-[address] [facility] 00:[facility] breast (procedure) [code = 033668062] Future Scheduled 2019-11-[address] [facility] 00[facility]00 [facility] breast (procedure) [code = 444702193] Future Scheduled 2019-11-[address] [facility] 00:[facility] breast (procedure) [code = 571875312] Future Scheduled 2019-11-[address] [facility] 00:[facility]:00 [facility] breast (procedure) [code = 746085961] Future Scheduled 2019-11-[address] [facility] 00:[facility] breast (procedure) [code = 375445424] Future Scheduled 2019-11-[address] [facility] 00:[facility]:00 [facility] breast (procedure) [code = 424627237] Future Scheduled 2019-11-[address] [facility] 00:[facility] breast (procedure) [code = 818020440] Future Scheduled 2019-11-[address] [facility] breast (procedure) [code = 743265189] Future Scheduled 2019-11-[address] [facility]:00 [facility] breast (procedure) [code = 391948063] Future Scheduled 2019-11-[address] [facility] 00:[facility]:00 [facility] breast (procedure) [code = 159929666] Future Scheduled 2019-11-[address] [facility]:00 [facility] breast (procedure) [code = 933230826] Future Scheduled 2018-06-[address] [...] 00:00:00 examination Medical Center (regime/therapy) [code = 894174737] Future Scheduled 1967-09-05 Urine screening [facility] 00:[facility]:00 protein (procedure) [facility] Center [code = 108085534] Future Scheduled 1967-09-[address] DI[address] EX[address] [facility] 00:00:00 [code = DIABETIC EYE Medical Center EXAM] Future Scheduled 1967-09-[address] [facility] examination [facility] Center (regime/therapy) [code = 650302703] Future Scheduled 1967-09-05 Urine screening [facility] 00:00:00 protein (procedure) [facility] Center [code = 693943470] Future Scheduled 1967-09-[address] DIAB[address]YE EXAM [facility] 00:00:00 [code = DIABETIC EYE Medical Center EXAM] Future Scheduled 1967-09-[address] [facility] examination [facility] Center (regime/therapy) [code = 491591428] Future Scheduled 1967-09-05 Urine screening for [facility] 00:00:00 protein (procedure) [facility] Center [code = 823555826] Future Scheduled 1967-09-[address] DIAB[address]YE EXAM [facility] 00:00:00 [code = DIABETIC EYE Medical Center EXAM] Future Scheduled 1967-09-[address] [facility] examination [facility] (regime/therapy) [code = 209879888] Future Scheduled 1967-09-05 Urine screening for [facility] 00:00:00 protein (procedure) [facility] Center [code = 117625336] Future Scheduled 1967-09-[address] DI[address]YE EXAM [facility] 00:00:00 [code = DIABETIC EYE Medical Center EXAM] Future Scheduled 1967-09-[address] [facility] examination [facility] (regime/therapy) [code = 343099993] Future Scheduled 1967-09-05 Urine screening for [facility] 00:00:00 protein (procedure) [facility] Center [code = 556146434] Future Scheduled 1967-09-[address] DI[address] EXAM [facility] 00:00:00 [code = DIABETIC EYE Medical Center EXAM] Future Scheduled 1967-09-[address] [facility] examination [facility] Center (regime/therapy) [code = 920570684] Future Scheduled 1967-09-05 Urine screening for [facility] 00:00:00 protein (procedure) Medical Center [code = 278778621] Future Scheduled 1967-09-[address] DI[address]YE EXAM [facility] 00:00:00 [code = DIABETIC EYE Medical Center EXAM] Future Scheduled 1967-09-[address] [facility] 00:[facility]00 examination [facility] Center (regime/therapy) [code = 702912470] Future Scheduled 1967-09-05 Urine screening for [facility] 00:00:00 protein (procedure) Medical Center [code = 943292431] Future Scheduled 1967-09-[address] DIAB[address]YE EXAM [facility] 00:00:00 [code = DIABETIC EYE Medical Center EXAM] Future Scheduled 1967-09-[address] [facility] 00:[facility]:00 examination [facility] Center (regime/therapy) [code = 079285314] Future Scheduled 1967-09-05 Urine screening for [facility] 00:00:00 protein (procedure) Medical Center [code = 465132178] Future Scheduled 1967-09-[address] DIAB[address] EYE EXAM [facility] 00:00:00 [code = DIABETIC EYE Medical Center EXAM] Future Scheduled 1967-09-[address] [facility] 00:[facility]:00 examination [facility] Center (regime/therapy) [code = 038352311] Future Scheduled 1967-09-05 Urine screening for [facility] 00:00:00 protein (procedure) Medical Center [code = 694644912] Future Scheduled 1967-09-[address] DIAB[address] EYE EXAM [facility] 00:00:00 [code = DIABETIC EYE Medical Center EXAM] Future Scheduled 1967-09-[address] [facility] 00:00:00 examination [facility] Center (regime/therapy) [code = 386550489] Future Scheduled 1967-09-05 Urine screening for [facility] 00:00:00 protein (procedure) Medical Center [code = 027944210] Future Scheduled 1967-09-[address] DIAB[address]YE EXAM [facility] 00:00:00 [code = DIABETIC EYE Medical Center EXAM] Future Scheduled 1967-09-05 Urine screening for [facility] 00:00:00 protein (procedure) Medical Center [code = 950294320] Future Scheduled 1967-09-[address] DIAB[address] EYE EXAM [facility] 00:00:00 [code = DIABETIC EYE Medical Center EXAM] Future Scheduled 1967-09-05 Urine screening for [facility] 00:00:00 protein (procedure) Medical Center [code = 734936477] Future Scheduled 1967-09-[address] DIAB[address] EYE EXAM [facility] 00:00:00 [code = DIABETIC EYE Medical Center EXAM] Future Scheduled 1967-09-05 Urine screening for [facility] 00:00:00 protein (procedure) Medical Center [code = 500739472] Future Scheduled 1967-09-[address] DIAB[address] EYE EXAM [facility] 00:00:00 [code = DIABETIC EYE Medical Center EXAM] Future Scheduled 1967-09-05 Urine screening for [facility] 00:00:00 protein (procedure) Medical Center [code = 646989334] Future Scheduled 1967-09-[address] DIAB[address] EYE EXAM [facility] 00:00:00 [code = DIABETIC EYE Medical Center EXAM] Future Scheduled 1967-09-[address] [facility] 00:[facility]:00 examination [facility] Center (regime/therapy) [code = 543517644] Future Scheduled 1967-09-05 Urine screening for [facility] 00:00:00 protein (procedure) Medical Center [code = 204240513] Future Scheduled 1967-09-[address] DI[address]YE EXAM [facility] 00:00:00 [code = DIABETIC EYE Medical Center EXAM] Future Scheduled 1967-09-[address] [facility] 00:00:00 examination Medical Center (regime/therapy) [code = 635618517] Future Scheduled 1967-09-05 Urine screening for [facility] 00:00:00 protein (procedure) Medical Center [code = 361650480] Future Scheduled 1967-09-[address] DI[address]YE EXAM [facility] 00:00:00 [code = DIABETIC EYE Medical Center EXAM] Future Scheduled 1967-09-05 Urine screening for [facility] 00:00:00 protein (procedure) Medical Center [code = 168530843] Future Scheduled [address] [facility] 00:00:00 [facility] colon (procedure) [code = 107063866] Future Scheduled [address] [facility] 00:00:00 [facility] colon (procedure) [code = 288591027] Future Scheduled [address] [facility] 00:00:00 [facility]oplasm [facility] colon (procedure) [code = 405183493] Future Scheduled [address] [facility] 00:00:00 (combo) [code = CT Medical C enter Colonography (combo)] Future Scheduled [address] [facility] 00:00:00 malignant [facility] colon (procedure) [code = 241798996] Future Scheduled [address] [facility] 00:00:00 malignant neoplasm of [facility] colon (procedure) [code = 345911049] Future Scheduled [address] [facility] 00:00:00 malignant neoplasm of [facility] colon (procedure) [code = 083871928] Future Scheduled [address] [facility] 00:00:00 malignant neoplasm of [facility] Center colon (procedure) [code = 363818709] Future Scheduled 1957 S[facility]oidoscopy [facility] [address] [facility] 00:00:00 (combo) [code = CT Medical C enter Colonography (combo)] Future Scheduled [address] [facility] 00:00:00 malignant [facility]oplasm of [facility] colon (procedure) [code = 613808135] Future Scheduled [address] [facility] 00:00:00 malignant [facility]oplasm of [facility] colon (procedure) [code = 813043895] Future Scheduled [address] [facility] 00:00:00 malignant neoplasm of [facility] colon (procedure) [code = 474742594] Future Scheduled [address] [facility] 00:00:00 malignant neoplasm of [facility] colon (procedure) [code = 138912857] Future Scheduled 1957 [facility]oscopy [facility] Future Scheduled [address] [facility] 00:00:00 (combo) [code = CT Medical C enter Colonography (combo)] Future Scheduled [address] [facility] 00:00:00 [facility] colon (procedure) [code = 531045032] Future Scheduled [address] [facility] 00:00:00 malignant neoplasm of [facility] colon (procedure) [code = 498277286] Future Scheduled [address] [facility] 00:00:00 malignant neoplasm of [facility] colon (procedure) [code = 626684765] Future Scheduled [address] [facility] 00:00:00 malignant neoplasm of [facility] colon (procedure) [code = 598143190] Future Scheduled 1957 [facility]oscopy [facility] [address] [facility] 00:00:00 (combo) [code = CT Medical C enter Colonography (combo)] Future Scheduled [address] [facility] 00:00:00 malignant [facility]oplasm [facility] colon (procedure) [code = 223212484] Future Scheduled [address] [facility] 00:00:00 malignant neoplasm of [facility] colon (procedure) [code = 003736841] Future Scheduled [address] [facility] 00:00:00 malignant neoplasm of [facility] colon (procedure) [code = 797493714] Future Scheduled [address] [facility] 00:00:00 malignant neoplasm of [facility] colon (procedure) [code = 570008054] Future Scheduled 1957 [facility]oscopy [facility] Future Scheduled [address] [facility] 00:00:00 (combo) [code = CT Medical C enter Colonography (combo)] Future Scheduled [address] [facility] 00:00:00 malignant [facility]oplasm [facility] colon (procedure) [code = 605670425] Future Scheduled [address] [facility] 00:00:00 malignant [facility]oplasm of [facility] colon (procedure) [code = 231605795] Future Scheduled 1957 S[facility]oidoscopy [facility] Future Scheduled [address] [facility] 00:00:00 (combo) [code = CT Medical C enter Colonography (combo)] Future Scheduled [address] [facility] 00:00:00 malignant [facility] colon (procedure) [code = 284270201] Future Scheduled [address] [facility] 00:00:00 malignant neoplasm of [facility] colon (procedure) [code = 828662721] Future Scheduled 1957 [facility]oscopy [facility] Future Scheduled [address] [facility] 00:00:00 (combo) [code = CT Medical C enter Colonography (combo)] Future Scheduled [address] [facility] 00:00:00 malignant [facility] colon (procedure) [code = 352908051] Future Scheduled [address] [facility] 00:00:00 malignant neoplasm of [facility] colon (procedure) [code = 883546326] Future Scheduled 1957 [facility]oscopy [facility] Future Scheduled [address] [facility] 00:00:00 (combo) [code = CT Medical C enter Colonography (combo)] Future Scheduled [address] [facility] 00:00:00 malignant neoplasm of [facility] colon (procedure) [code = 918679954] Future Scheduled [address] [facility] 00:00:00 malignant neoplasm of [facility] colon (procedure) [code = 132727221] Future Scheduled 1957 [facility]oidoscopy [facility]] [facility] Future Scheduled [address] [facility] 00:00:00 (combo) [code = CT Medical C enter Colonography (combo)] Future Scheduled [address] [facility] 00:00:00 malignant neoplasm of [facility] colon (procedure) [code = 832138215] Future Scheduled [address] [facility] 00:00:00 malignant neoplasm of [facility] colon (procedure) [code = 929725872] Future Scheduled 1957 [facility]oidoscopy [facility] [address] [facility] 00:00:00 (combo) [code = CT Medical C enter Colonography (combo)] Future Scheduled [address] [facility] 00:00:00 malignant neoplasm of [facility] Center colon (procedure) [code = 197662759] Future Scheduled [address] [facility] 00:00:00 malignant neoplasm of [facility] colon (procedure) [code = 663828313] Future Scheduled 1957 S[facility]oidoscopy [facility] [address] [facility] 00:00:00 (combo) [code = CT Medical C enter Colonography (combo)] Future Scheduled [address] [facility] 00:00:00 malignant neoplasm of [facility] colon (procedure) [code = 059779128] Future Scheduled [address] [facility] 00:00:00 malignant neoplasm of [facility] colon (procedure) [code = 906143141] Future Scheduled 1957 S[facility]oidoscopy [facility] S[facility]] Medical Cash r Future Scheduled [address] [facility] 00:00:00 malignant neoplasm of [facility] Center colon (procedure) [code = 728377736] Future Scheduled [address] [facility] 00:00:00 malignant neoplasm of [facility] colon (procedure) [code = 328554333] Future Scheduled [address] [facility] 00:00:00 (combo) [code = CT Medical C enter Colonography (combo)] Future Scheduled [address] [facility] 00:00:00 malignant neoplasm of [facility] colon (procedure) [code = 846580396] Future Scheduled [address] [facility] 00:00:00 malignant neoplasm of [facility] colon (procedure) [code = 169375951] Future Scheduled 1957 [facility]oidoscopy [facility]] Medical Cash r Encounters Start End Encounter Admission Attending Care Care Encounter Source Date/Time Date/Time Type Type Clinicians Facility Department ID 2021-07-06 [facility] Surgery [id number] [facility] 14:33:12 HARSHINIE 2021-07-06 [facility] [id number] [facility] 00[facility]:00 Encounter [facility] 2021-07-06 [facility] [id number] [facility] 00:00:00 Encounter [facility] 2018-09-18 Outpatient [facility] [id number] [facility] 08:26:04 2022-04-08 2022-04-08 Telephone JOSAFAT Hayden 1.2.840.114 [id number] Univers 00:00:00 00:00:00 Fracisco GARCIA 350.1.13.10 i [place] 4.2.7.2.686 Anaya UMAÑA [id number] Ut dical [address] 2022-04-06 2022-04-06 Orders Doctor KRZYSZTOF 1.2.840.114 [id number] [facility] 00:00:00 00:00:00 Only Unassigned, DEEDEE 350.1.13.10 ity of [place] [facility] 4.2.7.2.686 Socrates as [id number] [address] 2022-04-06 2022-04-06 Telephone [facility] 1.2.840.114 [id number] Univers 00:00:00 00:00:00 Fracisco GERMAINGALA 350.1.13.10 i [place] [id number] Ut dicdavid [address] 2022-04-02 2022-04-02 Telephone [facility] 1.2.840.114 [id number] Univers 00:00:00 00:00:00 Fracisco GERMAINGALA 350.1.13.10 i [place] [id number] Ut dicdavid [address] 2022-02-08 2022-02-08 [id number] 00:00[facility]00 00:00:00 [facility] 2022-02-08 2022-02-08 [facility] [id number] 00:00:00 00:00:00 [facility] 2022-01-29 2022-01-29 Outpatient Barb FUENTES [facility] [id number] Univers 08:00:00 08:00:00 LEDYCURT savannah olmedo [facility] 2022-01-28 2022-01-28 [facility] [id number] [facility] 08:00:00 08:00:00 BRENDA nuñez o [facility] 2022-01-11 2022-01-11 Outpatient Barb FUENTES [facility] [id number] Univers 15:40:00 15:40:00 BRENDA nuñez o [facility] 2021-12-24 2021-12-24 [id number] Univers 15:40:00 15:40:00 FRACISCO zenia [facility] 2021-12-15 2021-12-15 Orders Doctor KRZYSZTOF 1.2.840.114 [id number] [facility] 00:00:00 00:00:00 Only Unassigned, DEEDEE 350.1.13.10 ity of [place] [facility] 4.2.7.2.686 Socrates as [id number] [address] 2021-12-08 2021-12-08 Refill [facility] 1.2.840.114 [id number] Univers 00:00:00 00:00:00 Fracisco GARCIA 350.1.13.10 i [place] [id number] Ut dical NAL 044 [facility] 2021-12-08 2021-12-08 Telephone [facility] [id number] [facility] 00:00:00 00:00:00 Brenda GARCIA 350.1.13.10 [place] [id number] Ut dical NAL 059 [facility] 2021-11-27 2021-11-27 Outpatient ROGER KAUR [facility] [id number] Univers 15:00:00 15:00:00 ROGER ARAUJO [facility] 2021-11-24 2021-11-24 Telephone [facility] 1.2.840.114 [id number] Univers 00:00:00 00:00:00 Fracisco GARCIA 350.1.13.10 i ty [place] [id number] Ut dical NAL 044 [facility] 2021-11-16 2021-11-16 Telephone [facility] 1.2.840.114 [id number] Univers 00:00:00 00:00:00 Fracisco GARCIA 350.1.13.10 i [place] [id number] Ut dical NAL 044 [facility] 2021-11-10 2021-11-10 Outpatient R ROGER ARAUJO [facility] [id number] Univers 08:00:00 08:00:00 ROGER ARAUJO [facility] 2021-10-23 2021-10-23 Outpatient R DORIAN, [facility] [id number] Univers 08:20:00 08:20:00 BRENDA savannah o su [facility] 2021-10-21 2021-10-21 Orders Doctor KRZYSZTOF 1.2.840.114 [id number] Univers 00:00:00 00:00:00 Only Unassigned, DEEDEE 350.1.13.[address] [facility] 4.2.7.2.686 Socrates as [phone] [address] 2021-10-20 2021-10-20 [facility] [id number] [id number] Univers 00:00:00 00:00:00 Brenda GARCIA 350.1.13.10 [place] [id number] Ut dical NAL [address] [place] [address] 2021-10-13 2021-10-13 Outpatient R ROGER ARAUJO [facility] [id number] Univers 08:40:00 08:40:00 ROGER ARAUJO [facility] 2021-09-29 2021-09-29 Outpatient R DORIAN, [facility] [id number] Univers 15:00:00 15:29:27 BRENDA olmedo [facility] 2021-09-29 2021-09-29 Office [facility] 1.2.840.114 [id number] Univers 15:00:00 15:29:27 Visit Brenda GARCIA 350.1.13.10 [place] [facility] [place] [id number] Ut dical NAL [address] [place] [address] 2021-09-29 2021-09-29 Outpatient R DORIAN, [facility] [id number] Univers 15:00:00 15:29:27 BRENDA olmedo [facility] 2021-09-29 2021-09-29 Office [facility] 1..840.114 [id number] Univers 15:00:00 15:29:27 Visit Brenda GARCIA 350.1.13.10 [place] [id number] Ut dical NAL 059 [facility] 2021-09-29 2021-09-29 Outpatient Barb DORIAN [facility] [id number] Univers 15:00:00 15:00:00 BRENDA diasy o f [facility] 2021-09-29 2021-09-29 Telephone [facility] 1.2.840.114 [id number] Univers 00:00:00 00:00:00 Fracisco GARCIA 350.1.13.10 i [place] [id number] Ut dicwa NAL 044 [facility] 2021-09-24 2021-09-24 [facility] 1.2.840.114 [id number] Univers 00:00:00 00:00:00 Fracisco GARCIA 350.1.13.10 i ty of [place] [phone] Ut dicwa NAL 044 [facility] 2021-09-22 2021-09-22 Outpatient ROGER KAUR [facility] [id number] Univers 15:00:00 15:00:00 ROGER ARAUJO zenia [facility] 2021-09-22 2021-09-22 Outpatient ROGER KAUR [facility] [id number] Univers 15:00:00 15:00:00 ROGER ARAUJO [facility] 2021-09-18 2021-09-18 Orders Doctor STEARNS 1.2.840.114 [id number] Univers 00:00:00 00:00:00 Only Unassigned, DEEDEE 350.1.13.[address] [facility] 4.2.7.2.686 Socrates as [phone] [address] 2021-09-17 2021-09-17 Telephone [facility] 1.2.840.114 9 [id number] Univers 00:00:00 00:00:00 Fracisco GARCIA 350.1.13.10 i ty of [place] [phone] Ut dic[address] 2021-09-17 2021-09-17 Telephone [facility] 1.2.840.114 9 [id number] Univers 00:00:00 00:00:00 Fracisco GARCIA 350.1.13.10 i ty of [place] [phone] Ut dical NAL [address] [place] [address] 2021-09-14 2021-09-14 Telephone [facility] 1.2.840.114 9 [id number] Univers 00:00:00 00:00:00 Fracisco GARCIA 350.1.13.10 i ty of [facility] [place] [phone] [address] 2021-09-14 2021-09-14 [facility] 1.2.840.114 9 [id number] [facility] 00:00:00 00:00:00 Fracisco GARCIA 350.1.13.10 i ty of [place] [phone] [address] 2021 2021 Outpatient [facility] [place] [id number] [facility] 10:00:00 12:16:20 FRACISCO nuñez [facility] 2021 2021 Office [facility] 1.2.840.114 [id number] Univers 10:00:00 12:16:20 Visit Fracisco GARCIA 350.1.13.10 i ty of [place] [id number] [address] 2021 2021 Office [facility] 1.2.840.114 [id number] Univers 10:00:00 12:16:20 Visit Fracisco GARCIA 350.1.13.10 i ty of [place] 4[place] [phone] [address] 2021 2021 Office [facility] 1.2.840.114 [id number] Univers 10:00:00 12:16:20 Visit Fracisco GARCIA 350.1.13.10 i ty of [place] [id number] [address] 2021 2021 Outpatient R [facility] [id number] Univers 10:00:00 12:16:20 FRACISCO savannah [facility] 2021 2021 Ste[facility], Ang - Db [facility] 1.2.840.1 14 [id number] Univers 10:45:00 11:00:00 Visit Nemo On license of [facility] 350.1.13.10 ity of [place] 4.2.7.2.686 Socrates as SUAD?BLEA [phone] [address] OFFICE [facility] 2021 2021 Outpatient R [facility] [id number] [id number] Univers 10:00:00 10:00:00 FRACISCO savannah [facility] 2021 2021 Telephone [facility] 1.2.840.114 [id number] Univers 00:00:00 00:00:00 Fracisco GARCAI 350.1.13.10 i ty of [place] 4[place] [phone] [address] 2021 2021 Telephone [facility] 1.2.840.114 9 [id number] Univers 00:00:00 00:00:00 Fracisco GARCIA 350.1.13.10 i ty of [place] 4.[place] [phone] [address] 2021 2021 Telephone [facility] 1.2.840.114 9 [id number] Univers 00:00:00 00:00:00 Fracisco GARCIA 350.1.13.10 i ty of [place] 4.2.[place].2.[place] [phone] Ut dical NAL 044 [facility] 2021 2021 [facility] 1.2.840.114 [id number] Univers 00:00:00 00:00:00 Outreach Jami Guevara RADHA 350.1.13.10 ity of [place] 4.2.7.2.[place] [phone] Ut dical NAL [address] [place] [address] 2021 2021 Telephone [facility] 1.2.840.114 9 [id number] Univers 00:00:00 00:00:00 Fracisco GARCIA 350.1.13.10 i ty of [place] 4.2.7.2.[place] [phone] Ut dical NAL [address] [place] [address] 2021 2021 [facility] 1.2.840.114 [id number] Univers 00:00:00 00:00:00 Outreach Jami Paola GARCIA 350.1.13.10 ity of [place] 4.2.7.2.[place] [phone] Ut dicwa NAL 044 [facility] 2021 2021 Telephone [facility] 1.2.840.114 9 [id number] Univers 00:00:00 00:00:00 Fracisco GARCIA 350.1.13.10 i ty of [place] 4.2.7.2.[place] [id number] Ut dicwa NAL [address] [place] [address] 2021 2021 Orders Doctor KRZYSZTOF 1.2.840.114 [id number] Univers 00:00:00 00:00:00 Only Unassigned, DEEDEE 350.1.13.10 ity of [place] [facility] 4.2.7.2.686 Socrates as [phone] [address] 2021 2021 Patient [facility] 1.2.840.114 [id number] Univers 00:00:00 00:00:00 Outreach Jami GARCIA 350.1.13.10 ity of [place] [id number] [address] 2021-09-03 2021-09-03 Telephone [facility] 1.2.151.546 [id number] Univers 00:00:00 00:00:00 Liz PRIMARY 350.1.13.10 it y of [place] 4[place].2.[place] [phone] [facility] [address] 2021-08-28 2021-08-28 [facility] [id number] Univers 16:30:00 17:19:04 ADELE savannah [facility] 2021-08-28 2021-08-28 Office Nemo [facility] 1.2.840.114 [id number] Univers 16:30:00 17:19:04 Visit On license of [facility] 350.1.13.10 it y of [place] 4.2.7.2.686 Socrates as SUAD?BLEA [phone] [address] MEDICAL OFFICE [facility] 2021-08-19 2021-08-19 Telephone Billy Lu [facility] 1.2.840.114 [id number] Univers 00:00:00 00:00:00 Melissa PRIMARY 350.1.13.10 ity of [place] 4[place].2.[place] [phone] [facility] [address] 2021-08-19 2021-08-19 Tele[facility] 1.2.840.114 93 [id number] Univers 00:00:00 00:00:00 Melissa PRIMARY 350.1.13.10 ity of [place] 4.2.[place].2.[place] [id number] [facility] [address] 2021-08-19 2021-08-19 Telephone [facility] 1.2.840.114 93 [id number] Univers 00:00:00 00:00:00 Melissa PRIMARY 350.1.13.10 ity of [place] 4[place]2.[place].2.[place] [id number] Ut dical [address] 2021-08-13 2021-08-13 Telephone Billy Lu [facility] 1.2.840.114 93 [id number] Univers 00:00:00 00:00:00 Melissa PRIMARY 350.1.13.10 ity of [place] 4[place]2.[place].2.[place] [id number] Ut dical [address] 2021-08-10 2021-08-10 Telephone [facility] [id number] 00:00:00 00:00:00 [facility] 2021-08-10 2021-08-10 Mauricio Lu [facility] 1.2.840.114 [id number] Univers 00:00:00 00:00:00 Melissa PRIMARY 350.1.13.10 ity of [place] 4[place].2.[place] [phone] Ut dical [address] 2021-08-10 2021-08-10 Telephone [facility] [id number] [facility] 00:[facility] 00:00:00 [facility] 2021-08-07 2021-08-07 Outpatient MENDIOLA, [facility] [id number] SLE 00:00:00 00:00:00 NADYA 2021-07-28 2021-07-28 Telephone Aly [facility] 1.2.840.114 [id number] Univers 00:00:00 00:00:00 Melissa PRIMARY 350.1.13.10 ity of [place] 4[place].2.[place] [phone] Ut dical [address] 2021-07-25 2021-07-25 Letter Neurology [facility] 1.2.961.468 [id number] Univers 00:00:00 00:00:00 (Out) HEALTH 350.1.13.10 it y of [place]2.7.2.[place] [phone] Medi yoel MEDICAL [address] OFFICE BUILDING 2021-07-17 2021-07-17 Telephone Billy Lu [facility] 1.2.840.114 [id number] Univers 00:00:00 00:00:00 Melissa PRIMARY 350.1.13.10 ity of [place] 4[place]2.7.2.[place] [phone] Ut dical [address] 2021-07-13 2021-07-13 Transition DAKOTA Kilpatrick 1.2.840.114 [id number] [id number] Univers 00:00:00 00:00:00 of Care Blanka [place] 350.1.13.10 i ty of [place]2.[place].2.[place] [id number] [facility] [address] 2021-07-13 2021-07-13 Billy Medina [facility] 1.2.840.114 [id number] Univers 00:00:00 00:00:00 Melissa PRIMARY 350.1.13.10 ity of [place] 4[place].2.[place] [phone] Ut dical [address] 2021-07-06 2021-07-10 Inpatient U BILLY UL [facility] NILESH [id number] Univers 20:21:00 18:16:00 ity of [facility] 2021-07-06 2021-07-10 [facility] Billy Lu 1.2.840.114 [id number] Univers 20:21:00 18:16:00 Encounter Melissa DEEDEE 350.1.13.10 ity of [facility] 4.2.7.2.686 Socrates as [phone] [facility] [address] 2021-07-07 2021-07-07 Surgery Kenny [facility] 1.2.416.256 [id number] Univers 14:30:00 15:30:00 Joss ICAL 350.1.13.10 it y of [place]ENC[place] 4.2.7.2.686 Socrates as BLDG [phone] [facility] [address] 2021-07-06 2021-07-06 Outpatient R NEMO [facility] [id number] Univers 10:30:00 10:30:00 ADELELANDON nuñez [facility] 2021-06-07 2021-07-04 Hospital ER Rony Shin [facility] [id number] 19:44:00 14:34:00 [facility] Logan Yao 2021-06-07 2021-07-04 Inpatient ER LOGAN RUSSO [facility] Surgery [id number] [facility] 19:44:00 14:34:00 2021-06-07 2021-07-04 [facility] Rony Shin [facility] [id number] 19:44:00 14:34:00 [facility] 2021-07-03 2021-07-03 Surgery Amsteveungzaida [facility] [id number] 15:05:00 16:05:00 Angela Torres Medic [facility] 2021-07-03 2021-07-03 Surgery Beronica [facility] [id number] 15:05:00 16:05:00 Angela Torres Medic [facility] 2021-07-03 2021-07-03 Anesthesia Mitchel [facility] [id number] 14:49:00 15:35:00 Event [facility] 2021-07-03 2021-07-03 Anesthesia Mitchel [facility] [id number] 14:49:00 15:35:00 Event [facility] 2021-06-30 2021-06-30 Surgery Krzysztof Dodd [facility] [id number] 19:35:00 22:24:00 [facility] 2021-06-30 2021-06-30 Surgery Krzysztof Dodd [facility] [id number] 19:35:00 22:24:00 [facility] 2021-06-26 2021-06-26 Surgery Krzysztof Dodd [facility] [id number] 07:30:00 11:59:00 [facility] 2021-06-25 2021-06-25 Anesthesia Marissa [facility] [id number] 23:59:59 23:59:[address] [facility] 2021-06-25 2021-06-25 Anesthesia Marissa [facility] [id number] [id number] 23:59:59 23:59:[address] [facility] 2021-06-18 2021-06-18 Anesthesia KankakeeAsad romero [facility] [id number] [facility] 07:58:00 14:52:00 Event Nikolay [facility] 2021-06-18 2021-06-18 Anesthesia MaxAsad romero [facility] [id number] [facility] 07:58:00 14:52:00 Event Nikolay [facility] 2021-06-18 2021-06-18 Surgery Logan Russo [facility] [id number] [id number] 08:00:00 14:45:00 [facility] 2021-06-18 2021-06-18 Surgery Logan Russo [facility] [id number] [id number] 08:00:00 14:45:00 [facility] 2021-06-16 2021-06-16 Anesthesia Sade Argueta [facility] [id number] 11:58:00 13:03:00 [facility] 2021-06-16 2021-06-16 Anesthesia Sade Argueta [facility] [id number] 11:58:00 13:03:00 [facility] 2021-06-16 2021-06-16 Surgery Donte [facility] [id number] 10:30:00 12:00:00 [facility] 2021-06-16 2021-06-16 Surgery Donte [facility] [id number] 10:30:00 12:00:00 [facility] 2021-06-09 2021-06-09 Outpatient BCM [facility] [id number] [facility] 00:00:00 23:59:00 Colleg e of Medicin e 2021-06-08 2021-06-08 Committee Twin [facility] 1.2.840.114 [id number] [facility] 00:00:00 00:00:00 Review Bertrand Ivy MULTISPEC 350.1.13.10 itLorenzo 4.2.7.2.686 [facility] [phone] [address] [facility] 2021-06-07 2021-06-07 Outpatient BCM [facility] [id number] [facility] 19:44:00 23:59:00 Colleg e of Medicin e 2021-06-07 2021-06-07 Orders [facility] [id number] 00:00:00 00:00:00 [facility] 2021-06-07 2021-06-07 Travel [facility] [id number] [facility] 00:00:00 00:00:00 [facility] 2021-06-07 2021-06-07 Orders [facility] [id number] 00:00:00 00:00:00 [facility] 2021-06-07 2021-06-07 Travel [facility] [id number] [facility] 00:00:00 00:00:00 [facility] 2021-05-26 2021-05-26 Mauricio Hudson [facility] [id number] 00:00:00 00:00:00 [facility] 2021-05-26 2021-05-26 Transition DAKOTA Bennett 1.2.840.114 [id number] Univers 00:00:00 00:00:00 of Care Rakan B [place] 350.1.13.10 [place] [phone] [facility] [address] 2021-05-25 2021-05-25 Transition DAKOTA Bennett 1.2.840.114 [id number] Univers 00:00:00 00:00:00 of Care Rakan B [place] 350.1.13.10 [place] [id number] [facility] [address] 2021-05-15 2021-05-22 Inpatient X WILLIAM [facility] NILESH [id number] Univers 13:03:00 21:15:00 NEIL ity of [facility] 2021-05-15 2021-05-22 [facility] Moralesip [facility] 1.2.840.1 14 [id number] Univers 13:03:00 21:15:00 Encounter Neil Thomas 350.1.13.10 ity of [place] 4.2.7.2.686 [facility] [id number] [facility] [address] 2021-05-15 2021-05-22 Inpatient X WILLIAM [facility] NILESH [id number] Univers 13:03:00 21:15:00 NEIL nuñez [facility] 2021-05-18 2021-05-18 Patient Mendez [facility] 1.2.840.114 [id number] Univers 00:00:00 00:00:00 [facility] 350.1.13.10 i ty of [place] 4.2.7.2.686 Socrates as SUAD?BLEA [phone] [address] MEDICAL OFFICE BUILDING 2021-05-18 2021-05-18 Telephone Twin [facility] 1.2.840.114 [id number] Univers 00:00:00 00:00:00 Bertrand Ivy MULTISPEC 350.1.13.10 ity of [place] 4.2.7.2.686 [facility] [phone] [facility] AND ETOILE [address] [facility] 2021-05-15 2021-05-15 [facility] 1.[facility].840.114 [id number] Univers 11:00:00 12:33:54 Visit Adele HEALTH 350.1.13.10 it y of [place] 4.2.7.2.686 Socrates as SUAD?BLEA [id number] [address] OFFICE [facility] 2021-05-15 2021-05-15 Outpatient R NEMO [facility] [id number] Univers 11:00:00 12:33:54 ADELE nuñez [facility] 2021-05-15 2021-05-15 [facility] [id number] Univers 11:00:00 11:00:00 ADELE nuñez [facility] 2021-05-15 2021-05-15 [facility] 1.2.321.955 [id number] Univers 00:00:00 00:00:00 Adele HEALTH 350.1.13.10 it y of [place] 4.2.7.2.686 Socrates as SUAD?BLEA [phone] [address] OFFICE [facility] 2021-05-15 2021-05-15 Telephone [facility] 1.2.320.974 [id number] Univers 00:00:00 00:00:00 Adele HEALTH 350.1.13.10 it y of [place] 4.2.7.2.686 Socrates as SUAD?BLEA [phone] [address] OFFICE [facility] 2021-04-07 2021-04-07 Telephone [facility] 1.2.840.114 [id number] Univers 00:00:00 00:00:00 Thurston A MULTISPEC 350.1.13.10 it[place] of [place].2.[place] [phone] [address] [facility] 2021-03-25 2021-03-25 Telephone [facility] 1.2.840.114 [id number] Univers 00:00:00 00:00:00 Thurston A MULTISPEC 350.1.13.10 it[place] of [place] [id number] [facility] [address] DIABETES [facility]INIC 2021-03-19 2021-03-19 Telephone Twin [facility] 1.2.840.114 [id number] Univers 00:00:00 00:00:00 Bertrand Ivy MULTISPEC 350.1.13.10 ity [facility] 4.2.7.2.686 [facility] [phone] [address] DIABETES CLINIC 2020-08-28 2020-08-28 Orders Fuentes [facility] [id number] 00:00:00 00:00:00 Only [facility] 2020-08-28 2020-08-28 Melodie Dill [facility] [id number] 00:00:00 00:00:00 [facility] 2020-08-06 2020-08-06 Telephone Freddie [facility] [id number] 00:00:00 00:00:00 [facility] 2020-08-06 2020-08-06 Lulú Frazier [facility] [id number] 00:00:00 00:00:00 [facility] 2020-08-06 2020-08-06 Melodie Frazier [facility] [id number] 00:00:00 00:00:00 [facility] 2020-08-04 2020-08-04 Lulú Frazier [facility] [id number] [id number] 00:00:00 00:00:00 [facility] 2020-07-31 2020-07-31 Outpatient THOMAS WOOD [facility] [id number] Univers 10:00:00 10:00:00 ity of [facility] 2020-07-28 2020-07-28 Lulú Frazier [facility] [id number] 00:00:00 00:00:00 [facility] 2020-07-28 2020-07-28 Abstract Freddie [facility] [id number] 00:00:00 00:00:00 [facility] 2020-07-25 2020-07-25 Documentcalli [facility] [id number] 00:00:00 00:00:00 [facility] 2020-07-24 2020-07-24 Documentcalli [facility] [id number] 00:00:00 00:00:00 ion [facility] 2020-07-24 2020-07-24 Documentat [facility] [id number] 00:00:00 00:00:00 [facility] 2020-07-24 2020-07-24 Abstract [facility] [id number] 00:00:00 00:00:00 [facility] 2020-07-22 2020-07-22 Outpatient THOMAS WOOD [facility] [id number] Univers 09:30:00 09:30:00 [facility] 2020-04-24 2020-04-24 Outpatient THOMAS WOOD [facility] [id number] Univers 10:45:00 10:45:00 [facility] 2020-04-16 2020-04-16 Office [facility] [id number] [id number] 12:56:21 13:26:21 Visit Alanis Garcia 350.1.13.10 Kadie 4.2.7.2.686 Carmelina [phone] [address] 2020-04-16 2020-04-16 Outpatient Barb CROSS [facility] [id number] Univers 13:15:00 13:15:00 ALANIS nuñez [facility] 2019-02-18 2019-02-[address] [id number] Memoria 03:46:00 22:27:00 Inpatient barb Monte[facility] 22 l [facility] TELEMETRY UNIT 2019-01-26 2019-01-[address] [id number] Memoria 01:39:00 06:10:00 Emergency [facility] 28 l [facility] ivelisse EMERGENCY DEPT 2018-10-09 2018-10-11 Discharged Fidel Fuentes [id number] [facility] 09:44:00 21:45:00 Inpatient r [facility] 79 l Keiko Garner nn 2018-01-22 2018-01-22 Emergency E MHSE MHSE [id number] 16:17:00 16:17:00 [facility] l Results Test Description Test Time Test Comments Results Result Comments Source AFB culture + smear (non-sputum) 2021-08-07 10:55:07 Test Item Value Reference Range Interpretation Comme nts Result (test code = 6463-4) No acid-fast bacilli isolated in 42 day s AFB Smear (test code = 02284-6) No acid [facility]2021-08-07 10:55:07 Test Item Value Reference Range Interpretation Comments Result (test code = No acid-fast bacilli 6463-4) isolated in 42 days AFB Smear (test code = No acid fast bacilli 50568-3) [facility] (non-sputum)2021-08-07 10:55:07 Test Item Value Reference Range Interpretation Comments Result (test code = No acid-fast bacilli 6463-4) isolated in 42 days AFB Smear (test code = No acid fast bacilli 81940-9) [facility] (non-sputum)2021-08-07 10:55:07 Test Item Value Reference Range Interpretation Comments Result (test code = No acid-fast bacilli 6463-4) isolated in 42 days AFB Smear (test code = No acid fast bacilli 29829-4) seen [facility] (non-sputum)2021-08-07 10:55:07 Test Item Value Reference Range Interpretation Comments Result (test code = No acid-fast bacilli 6463-4) isolated in 42 days AFB Smear (test code = No acid fast bacilli 62976-4) [facility]-SPUTUM)2021-08-07 10:55:07 Test Item Value Reference Range Interpretation Comments CULTURE (BEAKER) (test No acid-fast bacilli code = 1095) isolated in 42 days AFB SMEAR (BEAKER) No acid fast bacilli (test code = 994) seen Fungus culture + [id number] 01:03:45 Test Item Value Reference Range Interpretation Comments Result (test code = No fungus isolated in [address]46[address]) 28 days Fungus Smear (test No fungi seen code = 1406) [facility] [id number] 01:03:45 Test Item Value Reference Range Interpretation Comments Result (test code = No fungus isolated in [address]46[address]) 28 days Fungus Smear (test No fungi seen code = 1406) [facility] [id number] 01:03:45 Test Item Value Reference Range Interpretation Comments Result (test code = No fungus isolated in 63) 28 days Fungus Smear (test No fungi seen code = 1406) [facility] [id number] 01:03:45 Test Item Value Reference Range Interpretation Comments Result (test code = No fungus isolated in 634) 28 days Fungus Smear (test No fungi seen code = 1406) [facility] [id number] 01:03:45 Test Item Value Reference Range Interpretation Comments Result (test code = No fungus isolated in [address]) 28 days Fungus Smear (test No fungi seen code = 1406) [facility] + [id number] 01:03:45 Test Item Value Reference Range Interpretation Comments Result (test code = No fungus isolated in [address]46[address]) 28 days Fungus Smear (test No fungi seen code = 1406) [facility] + [id number] 01:03:45 Test Item Value Reference Range Interpretation Comments Result (test code = No fungus isolated in 6463-4) 28 days Fungus Smear (test No fungi seen code = 1406) [facility] + [id number] 01:03:45 Test Item Value Reference Range Interpretation Comments CULTURE (BEAKER) (test No fungus isolated in code = 1095) 28 days FUNGUS SMEAR (BEAKER) No fungi seen (test code = 1406) TISSUE [id number] 12:44:09Surgical Pathology Report Case: [id number] Authorizing Provider: Logan Russo MD Collected: 06/18/2021 11:41 AM Ordering Location: [facility] Received: 06/19/2021 03:44 PM [...] IS RECOMMENDED. Signing Pathologist Direct Phone Line: [phone] signed byTom Paige MD on 06/24/2021 at 3:29 [id number], [id number] valvePerformed.The interpretation of this case included the use of immunohistochemistry or special stains.BLOCK A1- [employer]MA JOHNSON, AFBControl Slides Examined: In-house known positive controls were evaluated alongwith the test tissue. These control slides run alongside of the patients sample show appropriate staining. Internal positive and negative controls when available are evaluated Immunohistochemistry technical testing was performed at [facility], Pathology Laboratory where it was [...] to perform high complexity clinical laboratory testing.[facility], Department of Pathology, [address] [place] [id number], [facility], [facility] of [facility], [address] [place] [id number], [facility], [facility] of [facility], [address] [place] [address], [place] [address], a. Received in formalin labeled with the patient's information and "mitral valve mass" is a 1.5 cm in length by 0.3 cm in diameter robert-pink tissue, which is submitted in toto in cassette A1.MP (resident)Tissue [id number] 09:50:09 Test Item Value Reference Range Interpretation Comments Case Report (test code Surgical Pathology = 104) Report Case: [id number] Authorizing Provider: Angela Loco Collected: 07/03/2021 03:04 PM MD Brian Ordering Location: [address] Received: 07/06/2021 09:08 AM Service Pathologist: [...] clip x 1 DIAGNOSIS (test code = [id number] 3220) FuZzEwMzNcZnRuYmpcdWMx IHtccnRmMVxlcGljOTYwMV flhtWvJYSzcKQlJ2Kdvwrp BLcbSG8wNB4jrCbcpWJchX ScUWXnGvBri1vul450sENo f3naKQCLxesfrSi0tBqoF5 3xb5B4HpfeB77xrIUoVRP4 RFMyJNVzqELbKWScSPN9SD HmzGYsB6fwWDAfKO7dnfgt VHvyPPcjYHTdbLL4AUDcqQ GtL0IfHZNwNCbaSKHnlfl8 CdNmWa3qmAAliSejXFsdKZ TxFEEiXIkoGFPxFdXtMB0p W15AT23zEMWLH7IFNNSCQY lTRTIJID1WE5y8ETGqhaVc LSAgVFVCVUxBUiBBREVOT0 3KQPNjkvpfPXPiYq1nI10A C39bQZMYW4eTE5UBJ3ICCW gWIyPOO2xXAUmcMukVYTYD HaesNYNnGE2dDN9LDJWMMJ hSJWIDXPgYMZ0IYfDCSlXT ZRJJUJKNPHNTAN2KQCRxyI FyICAtICBORUdBVElWRSBG R9FbSPoCAF9CJaKIHZIQQN BYWNOLLECbF4GtTDMETCqU ZS3CBFkwCRAyoHTmORVcQS BFBX7SRHJRSAeQHW2YL5GN XkZJVtpdTI1EJDPnRWHPG5 BTWTpccGFyICAtICBNVUxU SVBMRSBGUkFHTUVOVFMgT0 GoWEVDNPhPEmXNSNYNP53W XHBhciAgLSAgTkVHQVRJVk VhBn1OFAnSD9jeD7PXVWEd JVvMKObOG2pJDR4VZS1QLF jSUaCZV6oqgAVaICMohlLa oOPlYNYxJGTQHU9PAOOPXo KDA5TNFzGAWBTSCMtWSYQO XO1HQ3k6MWNbiqLwXWGiGC PBSFnCGBWmCjHKY77KPiDW KZ5UXOVMFnTBETDkKGPEHw 9QXBouIJMxPK5xHY4CE6DM SVZFIEZPUiBISUdILUdSQU JLYKDZH0PJRRYRHPEHWyKY HIyFV87ZPaVCOOJimc71HV G6RuBrz6X7YKI2WNGiJZQv n5mjOSPeoIRsMwTeMnYoOx CmQeahvYQoKZSbAjFth3fs f830bWRsr6pzXUTcHhL2aJ ZnKHHwlCZtH983BKQvJEks i5afy2OmQQNogIZrv1U9PU ICsgzwlSc6uMliF42xb8J1 KuteD3ixBXYiMUBcI0MbTO 9pSSHvTpj8MFN8IPB0BHHk NUCbR8HuBA9gHYLiuETrYT f8z8eexGvxLWIpZAB1o5yt RSispiBnJM4bdd6cfUh4q3 xjczEgRGVmYXVsdCBQYXJh C0HzfNhzLb6liMl9vRhqOg frSAU5Ilc7SI2vma68hft3 yUlhLSVfwziqGuC1RGnyPD WrsgxbYWc8GAogPWBftPI9 YOSrgQFxV1VlSGHwBO7yrx p3ULF4OOezUMDrLiB7OWVu zVMcIYMnjFpyRDxxg299QN U9QjOeOA8sW8Mto3W5dF4e aXRcZGVmdGFiNzIwXGZvcm 9xmJVlMFqxm9HqHWO9dkR3 tDTmmPTvWNOtAbC8KLdrHJ 7poj66DMGdRWR8az3mzMKf kCnrxcSqmUNbSNeeA9NxAE Djf902AXOrJ0XjLRNhi0S0 neVoWeVvWFFqsLE2asD4XT RbUZ0hvhvua1wqESgeXZba DCYtrfA4jsJ0YNJexLFpI5 XbuC7xREXyYV4neeppw5sb YYX6CQujKIGdRJV6LxAwCJ Bnr5Wvcbq2QaDkm5WhxDJa SFdpU02pr462ULPtczXsM2 xwbGFpblxwbGFpblxmMFxm qcO1TKDvNNxwguuhEOCcUD wzC9dhEeNnDMQyzRxyYPcc u3KaHEPwSCRfFwRexKFeWZ HzQjk8UXEqcUPlRNNvTiFk D1uuwylyFwSTALCmc8joJ0 nsvGWUpFRdP9OeJItwjdRv IPkmPHlmNLPlEGW3ZQ7rOM SrGZYaxz45 CPT Code(s) (test code f4plfVJsTETjoKD9IiAzPM = 3357) Zxq1rtj5TuxXXciDTwIHei kQEedjSqic13wBO7oN23FW 9kARFvVeK4DEFeamR3Dmr5 BEVvENFeyQIcP222a0qhb5 oytmQheJN8rTuiAMCpprsm WoK9RYyrSJBqvlhvJIs5JI dwKVKsbKL7DEQhoXJyN2Gq MVUzWG4kiay0HJC5YSkjPH LtDlN6NYEzgNCkJJSkyVyq DEfdw970CWJ3SgYePBLrgo KsqElxsA2kGaPsHFG2OZAo LSl9ATBavy4= CLINICAL HISTORY (test x0jejQQiATFdrAL7JvBxJB code = 3356) Dss2gtf3InnOJxpUBoQTgi jQLyitXuln03gGP8lF34BN 4iOMZcUdK4SZGynaD0Gor3 WBPwVJWgoUYkL637w5tlh5 lxrsYmpQF8EXErKAPrK0Sn EJ8qDWPriMVtL25ltZChVO V9LPJqVJBkhFDyCMXaYFJ0 NIFyvALpW6cgZNEuMG3jht opNLjmWJxsJDUfqCX2WUYn iIGeV1BpWLWsCHksBBEqyy w7NiXmRy7uoEBgaTekXSzd YXJkXHJpMVxwbGFpblxmcz CsCOLiEENTpg4xCMEkFsbl rQNmU3mwBA1qzDwlVHV2at LuZPScJdeuHWRzfu1xHVKj LqyccETmL9rzJK3saLhoDQ U6dSWoTSKjer0= GROSS DESCRIPTION (test i4lzbJKdOOYsbTFPCZMcEw code = [id number]) hpvvQiGXOndNCfW3Uykate LScwUZ7mYH0goNruiATaqB ElVR9NABMjOvZrYJVakMQs uuYcFbJwDCUsxMZsjCC3GL QhDU6baluiNLpjSRpxOPBh ppK4WWXfzZYjK1MdTYVlYH 4uawrcDOK3PMmnkE8pcuAS OwaxMq4ioIVzkDsxKzLnPx NoYXJzZXQwXGZuaWwgQXJp WWz6pY9SBxvfT77ar5O1Ha w1EFGuSCIaY2VmUL9kEEXp oCUnL22XUugvEEA2NVWELe vtEIJyHG7Py9sxAMQorPLw QEK0BUyyfPMwJRMlEUUrJC o3OAQjDZylfZUeRN0uwLwv GyhczBhkl1ObhWOhNDxaKM GcEWSgMYfgXCQwDU9MTbEl IVbJAfsaUJrzOaR9NRi5FZ WKVaOdBtHmXuogONJ6UYfv AIr5CXt5REmDAoC9PVB6XW KmALjbBKRtEuwtWAj9OHKh XFxmIEFyaWFsIFxcZmwgXF anK03stSvbwG4uZJ1cDX0k jIDpNVSddI8nTY5vA2UbyK 0uXHBhciANClxlcGljTmVz dERvYzEgDQpcbHRycGFyXG xpbjBccmluMCANClxsdHJj aFxjZjFcZnMyMCBSZWNlaX IiLFLfaqBay7IgVXkyohLe YWJlbGVkIHdpdGggdGhlIH HpzDagqzUhM8A4ygPoNV0r FNJeNFNyG4LnTSCjA73iBG FhgP2xOEOwQR0fPEb2BDUu UDSyGaneeG8ycKCaAKUiwE 1vLWJeW9PnXbAyx62ktRD4 xiOdDzClWBLkwg6mpS7oDN Hwld3iDRLct7M8EBFtn9M9 ESPnTP78TGirGJ2aCFfgIV 4xIGNtLCAwLjYgeCAwLjMg dYGuJwOuS57uPyOaOAobHE PhTPKjbJCqXIpeKUE9Ud9b zUIwBOGvudZ6k6WzXTucNI QkIbtiLRLpNFzzrUJbBV0Q NWCjARrvloJnHQ4NANVlLN nxJQAxdWGRMBL7DX0mJTvo pDHorsxgPKYsT4RjG0Okeu HihBHrYVEzkuToa7mgGEH9 XHNsbXVsdDBcZnMxNlxwYX J1YNy5JOpvJIMuG7OeK6Rl EVwdVOT7KVQiZcWdWECrWU WVQzWyZiRaHoD1Uxg4VwRq LCy2JInfM4MUDNYoYYP5QZ E9FJT8PpS4AMr0NKSHFb7h HWXgBLV3ZgI1BFN6BgM7IU xcdCAyIFxcZiBBcmlhbCBc XEUmFNclarL3OFXgSUCebB jevS7oFk1sVK6kvHNjGQDk dP1aAO5mUadkjGBvWZAwPC 8qrH9qLdugFLJpLYblHWFw S68yw8QOi7NtNN7AZNl4bl SkvvrkyJ9lRFEkalVwNFwb gWEfB9bfE1LzSRIcQdYhNi PfBUp9PXQmgL9rIp2cmEGl aG2zhBAmKNyeCUI5uLXhGI JqMBTnIMWyVM92ZOzKIFTn bmFtZSwgbWVkaWNhbCByZW NvcmQgbnVtYmVyIGFuZCBc kBooTvEwHQb6I6UmlVjfKH Ele9yjao6ocMpjfSRqa3Qz gzWriprsEMBpRFUsg32ogO L7jlVfBeDujJr8cTJkFMZ7 BK2zgEmdymikzDRyTQy6iY TrTRTuYsBxqVkjf4WmFUpm LjQgeCAyLjEgeCAwLjQgY2 5bmD5bQYhmlsSdECAkIC9i NAApWBEyyIItaO8mdvKhxl FoyQNzwXR8AKYypT7tzO78 enOpafXPNZ5spACjDY6YZW BhciANClxjZjBcZnMyMiAN ClxwbGFpblxlcGljTmVzdE EqStJoeLpqwW49LMXltUKk DXG9UO4gUHXefpaeJTUgMH XtNRZ6AXeacW94yQEqLFZy HBAimEVrgJ7Gx3jtDVZmiG SbRLD7JDoqpLWtDIDuKARo RXslFaKoG9GMHDLdWqIiFY Q5ZXObIVs7VUz9AL7GMbTz MZGjFPEwMfJ3UCSbCNo6HE bpSJ0EYOU1Bnf3YKE9YUC5 NTMyOCBcXHQgMiBcXGYgQX WmPWksZKwanZFvDZ9adRgq ylG6VFFkNDncSGZuIPKdtK keBSUIc0mwsgYhPDJiE7e6 R1CdO4XaKObqNu5hyZWjNA 8HTEKjxWPKBEY8AI2kJFGM ClxsdHJwYXJcbGluMFxyaW 5iUX8FLSb3ngMxSZDiEYru kpVdOYWhR0WqwbEgQJezDT Xogs4egCxtDMxlSnEfGFBg v5s2yUS5kCCsdRA6cUQcyD lmGxFuGG3veUGwVN9pNEzv WQuclfKrp5IjKS47vFDkjx GobpUeKSV5KnJcJPhfPUQb b0m9tMapM70kq55qbbeacZ RnRWLaIO6mkT4nXpHghtAu X44su6grqZQys8XnjANjvD lwbGUgdGFuLXBpbmssIHBl QOFnV8MpHOQzQUIda3K9KA Gya7N4DZYzRs96JHriZm9v PBsdWM38JCMcHTvlMYUwY9 RaP1F6ILqtWCXZpTQgi4Jp Z8huHL5fpVAml7XmcVq9uU OwIQzqWMKfuD8onI7kYtNf XHBhciANClxwYXIgDQpcY2 XxGSVlHsDaUKojyYbsdG2r FNZuQ47je3WJg8UrVEBxYV aus0rqvFkni8SgrIIvQSwx GPLsnGBmTWdfkI9dZpBix2 fdeEa4CMuzyuA1BPIbjm7M DqklZxmmnKhab6HnlNKuBY zlRAFhUGYlCUqgUFHeXL8L XyXaLGwBCpeuSPfvHhT0QY j7NUOMAzVoWtWpFqfxKZH8 CpGyIOc9KVl5OVpUXpQ0NL T5HZBhPgRxHHLvHximIEx9 IDIgXFxmIEFyaWFsIFxcZm bcAAerN28aBfOcUalzvOAy owELOmGOi7d4kBwbF94mr8 6eSXMTutZau0NtkaGeTsyr ZTMsARftHFHiQ67op1ZBv9 OoQJ4YKIm7tkVoqyqfkU7u LGGfnlYlFWgztQUqU8tbC8 PdVOBvGtRaSvJhNPz8UNEj tQ7zQd1vxZKrbY7evMLfBF iaTVT0vZAdOAZzRWYeCSRl NC78EIbKXTOeydPxUExguX VkaWNhbCByZWNvcmQgbnVt YmVyIGFuZCBcdTgyMjAgXC z1A6TpiVfcGEQvq2cjab19 lnZjt4CjuwNyXVWqbLVoHP 8pHnkcoS42SGQgLXKyZYBl yJmxSSbcDrJgczHeR61pz3 srxADhb8KdhOJudCowwYJu dGFuLXBpbmssIHBlZHVuY3 CbAGAmVWJmy2O2HZYwt8Y3 XGKyEt0sSNusWx4mWNyjLG 54IZVfBHinNDEwO0CyJ4V4 ZZaaAHKNqLRlc4BsP9joVM 2erYQuh0GqeAl7wCHmBUko AXBezF1ohZ3gKORrOZLkQX OzytUZQzhnEBOiFQmWl5Yw nHiuHPHjH9t6n79aM6vhjI GuVGYDJRW4bUAdcvJdoZTd DP4TPOCnupGBDkpbSoDnHy MyMiANClxwbGFpblxlcGlj MxTymDRbRpEwrOscaW55AA PfkLUqRKI7GQ8pMPBtiwxk FHUqFLXqMEB3XNjdqA86aF MqKUGsNNFbsMSbmL5EOJYx HLP4PEzkgQ76nLIgKV1SKV KvWRJ1LMSupUWvHFB4SG2k fQ0KfQ== MICROSCOPIC DESCRIPTION m3kmbWKaSAYmsAZ9JyJtDJ (test code = 3371) Brs6ikn5BggSRnxBQaZDdm sKWpjwQgee51eSH0mH20FJ 4sEEZsUuK4WRElylU6Gfp9 ARDdJNEwbZUpO001h4yyk9 hyrcVvpNH6wMgsJHRqpvaa CnZ4JDbcIKVcmbtxNRw4RX qfRRYawPT1VWTmmZIcW7Rs XUTmYQ3qrja0VNJ5WQcqJL JvYdY8TJGjqLUwMBHnxTyp BHmxw116BMF3AuYnDMDnuq CgeDaaaI0yGfOmSGPCWPTc x1UxSABjVJKqgafsFSKeNJ Bhcn0= [facility] [id number] 09:50:09 Test Item Value Reference Range Interpretation Comments Case Report (test code Surgical Pathology = 104) Report Case: [id number] Authorizing Provider: Angela Loco Collected: 07/03/2021 03:04 PM MD Brian Ordering Location: [address] Received: 07/06/2021 09:08 AM Service Pathologist: [...] clip x 1 DIAGNOSIS (test code = [id number] 3220) FuZzEwMzNcZnRuYmpcdWMx IHtccnRmMVxlcGljOTYwMV unpvJxHGHmuAAvE0Nciepl GMaxTN6zGA0oqHgohYDomQ ZyMBJnQjJdo0rwj418wQSj a0uuELKMprmmzCj4dOfhN6 3nk3F5GkmuL65ysHKiWAD0 JOVaHZTziGLnKFBdRNW0LV WssKRoO4iuBRQhVA3nbzvj FGluPJslPVBrzFO6TKVyeU AfY8BjXNCmPOfeZOPijzw0 EjKsRy1dvQKehAytETjnXV RuKVBtBWxbYOUpItVtCC2g Y86ZZ08uVTLDK3ZDHBUEQF cDGABARW6WB2x8JWPzqeBb LSAgVFVCVUxBUiBBREVOT0 6GELLujxslBYThWb1wI90T T59dPFULC0hFK4GDH3JDNG dSCxZUR7rMYJniSvwJRKDL TiulLJDkHO1uLW3IMAJNUG rJBNOQZTuISD9LIlTFAsMA MPAYKYWFLHZVJC4XLKAzhM FyICAtICBORUdBVElWRSBG O0LdMVhEWT9FAjRYDRBGUE OXDAYMSJVcA1TzSVCWJUoD LG2VTEmfGPRceINiJFQuKS HZLP1KCVBFENjMSB5HE6RU JuZWMknqNH2ZIOExUQOEC8 BTWTpccGFyICAtICBNVUxU SVBMRSBGUkFHTUVOVFMgT0 FwLAPRXRrIAxIUTZTGP93J XHBhciAgLSAgTkVHQVRJVk PfUy3KZSsNC3lbK3YEQXEc UIeRQElLF7lDWP7YWX6OZV sRJsNGX2euoFRcMUMoevZy cHIoEOVeCJGFVB7DKTPXIh AVR1MNOlJXYNXOJWcJKZHB TX5PI1e3VHVsalOiTNKtTT GRPFfHCGBeRyIMS13UDdNE JJ3HCOBCUpCRDSQiZVEJSr 4BCLevJDCsPC8zPR3LV4YX SVZFIEZPUiBISUdILUdSQU ZPBJXTG5JOTWHNSWCYJqZH GVxTM74VVvXCOYSglf68SE J6IwAsv4V8BEL3TQGlRDPw d4imWWGdlRQlSzEcYxBpDd LwAkcspCYmYUBdGdFmw9ph a473hFHhq2kaCACtMwD2dN VnZXTwhXJnL230JLQmSNob o1yuy1MiOZBdpTWyc2D2SP LFpxtmdDf0oSakN62wn6E1 PobaD6jxTJVzJFYaS9OrRR 4rCTLkOrq0QTS4ECI3LCJe KPVfI6CiIS8sODDwqARpPI l7a0chwQliIUIrFYT7w0ad NDvqfgZeDF6cbr7ufQy6p0 xjczEgRGVmYXVsdCBQYXJh G7CcjHwlPm7rdPh4hVooAb vlAMA8Ojx8WH8cma27yro8 fBfwNVQpwoyxTwJ0DPeiQA BkoktsMJu4EIxsTGSjnYJ1 HMOfnVJjU5DuNTXxMK5uvh v7HEA7EDwaLSBwPbI5SIOv fKLwHDZcdZytHIdww361GH N7BqQhZZ6mJ3Adg4P3gZ9o aXRcZGVmdGFiNzIwXGZvcm 9paCQmUZshw2BdDVQ5fbW4 zLMpePEsONNnExQ5GGtlPF 0xzl28PLGmKNR4dw5jwYCq fEdniqNwiAMuWEqiT1YyUT Lve406ZTAlW3KkZKRdq8X5 dgRcMwErMVWrfOG1ziB1BH MdRX2ivqxfg5ycARbhLDoo TRVdztM3bsW4SIZxhGKuZ9 MoeZ0mSSIvPW0hjwvre2xl QHU4RSpeBDTiLXM9VyYwVN Evk6Avcqv0WqVed3LyzVXs KFbvK29np904ZGZtsdJtY5 xwbGFpblxwbGFpblxmMFxm rhZ2VLRyASbimspiASYuNH pkL5uqJaYuVKNnoEhnAVez p7DlZYHuHESkDmWdePKqFU VwYlc9GXIerQIdTFWdRkCv O3izpyxeKpYWCMEdy6ehZ9 zdiXBSnUHpD3ZiFVycmaPd KKhaBVhyTPKfAZQ6PJ2lKK VjITHjcl95 CPT Code(s) (test code u2bndXZaGAGgyOL2DqEiAD = 9687) Fxp1rpl2ZsyZAvqRWyAOhx iHDefyEnlq11hON3zO10YQ 3tCKLnBgA0TEEzlrR5Qgc6 RWDxVMVpmZQsF727j8piz3 sfltEzvUP1aUzdYFJjepsv OkS0VOicUFNbhyqjMBe9JI pmJHSksRP0BKQteAZuV2Cb HIMlQM8svxu8URA3LQitIQ YfJxW6OWBozXTuUSNvmRjo QUbhx149FFB7EuLxXHHabb ZhgJtvgK4yVfEvCLT5BCHa WYw0XDPjry2= CLINICAL HISTORY (test f1nqlTIxSNNlaXR9DxZzTJ code = 3356) Xcn9xaf4BadLYfhTOoTTpo tGBkzvEfww14wEW1mA45YQ 3dEUPcXwH1KOLcgwQ3Gta2 IKVlEKCxdTUlB948k4vca2 bvihDhhNO8WOBxZEVrF5Co KM7qSBBtdQRiJ11mvMCoWZ D9JPFrSIMrtFNiOKCtRGD3 ERIbdZMuX5zbANEtGX2tgi zyAFloZAqoHXEyjHM6ZYNy sHTnQ1WbUAWyYEylWSHxij l5PxLaGl2jgJZozBdnYKux YXJkXHJpMVxwbGFpblxmcz MkERNvXGWBkl6jXUKjNxpa pJZpO3tmQW6nmMhsTCM0ql JgPBCsDrspXREsjh6rCBZl GuodqZCyT5igHL4ubTxwTH Q6sWFpIOIzqr4= GROSS DESCRIPTION (test v4qtnMVkRJZntPJYKWYfQf code = [id number]) tulpGbLFWquJMeY5Cugsyo FEgpKK2zXN0rzInsqJBwqP OzRV5HVMTlAjJaWRQahGJx iqKvVcNwVGHulNVsvXG9HG MmCE7krawzRIbhQPhfKTHf ssH2DJVqdREgU7AgAYRaZW 2thlgrVFM1ABloqU4whsPH VbevSd0uyDNfrJooJwGkHw NoYXJzZXQwXGZuaWwgQXJp EMq1dO5FIyejG82kz4S0Zr w7OJEwKTExU6WqQT5sHHHt sAZmI56XFzcnLPJ2FSAPIz kaGGGrAQ2Jb6zlADCxoLBu INX6DXklfDNgSWHlTDXeEP k9LQPdWNhqbPAzTG9cqWmf OoihfArrg3GakUTfVIkuZZ XkRWWjJCpgMCDuUJ5PUgBe KHyGRpoiVIarDuU9ZPk5WZ YYVqBmYpIoXlagRAM4WGpm KYl0KEr3HUiIPzC1KKS0UB WqZYzyRRUbXiszYZx2SYSz XFxmIEFyaWFsIFxcZmwgXF puH44olKaysF5jXY8sUM0a gFVzKPOvaI0uVV5zX0JcbA 0uXHBhciANClxlcGljTmVz dERvYzEgDQpcbHRycGFyXG xpbjBccmluMCANClxsdHJj aFxjZjFcZnMyMCBSZWNlaX VyQTRqfkRac3KvKUmvsnFa YWJlbGVkIHdpdGggdGhlIH SvzFcojoXzN0Z8ndKbGT4q ELDbSCDpQ5NsKJJdX52jYG EtkC6bMLTaKH0jKBm4TCPl BKKpElwurE2ryJEhIBVdsI 7iMNPpU2LjNbXwc53eyKO5 xsNeAeUiABVgln0rgH1uNC Pecr1zRZIts0H2HDAim1D3 MKRwBQ09ATubRA1sKMntFU 4xIGNtLCAwLjYgeCAwLjMg zSJnNnZpR88ySpTgCBadUY GkCOIpdKDnCDcvABT3Qa3o iGHjMKIuztB1o7KeOKxeNR AkRrlqAOJjRXtyhZPnGW8L PRVhLYatfiMvFA0GECFeEQ gkDRClpJFNEBZ9GB7oRAui mIKpuhxtIWJnR2SsG7Ajhi UwdDKdRJXmgiRyv6leNIE7 XHNsbXVsdDBcZnMxNlxwYX I4DSm7PJneRHVqD4EfK9Fj SIclTUX7BBGuFsVlDHFmDY FVWaDhUvMkWcQ9Qqm4DaMk NBj7TGrlH2XIPWWuQYQ4OV L3QLR1ErV0USr7TPWZPu2x BKAtZIK8UeA7KED6XeJ5PJ xcdCAyIFxcZiBBcmlhbCBc ZQFyKUvbhyS4OIZwNDFczI vggQ7zKr5uGL3lwCWyIVHr iI5nUP8eShhghOVnHOZqTQ 1orV1gYodoJZFdCDmqDCWk Z18we4WMb9YbON4SFPf7go RoatrcjB7nPAUfgnRtKBks dHJsO8wjW2XfYMEqTyWmVw BdEAw7LDNajD2kAt8kzPVq cQ1zuHPhBHswLNX3aVTfMU PgOBVlJRPsYX64CHzWZRTu bmFtZSwgbWVkaWNhbCByZW NvcmQgbnVtYmVyIGFuZCBc fRkxMfWsGIv5W0EscUemWO Mnq7owjh0biOkilXXpa5Yx xlPqivpdOFMeAAEmr72hyZ V5byOaWeGnzCu1jQLvLIE4 AU4bpRsacakisXHxALf1kG MgEJVdTxDsgBuxm3RhAWze LjQgeCAyLjEgeCAwLjQgY2 6usM5lGAjeolUfZBQoCK7f RVEoNOGllJIknR5jqeGgbc WftCVtsPS7FEXqaT5nhG77 rxXdixWLAO2uqEEsZQ8WDU BhciANClxjZjBcZnMyMiAN ClxwbGFpblxlcGljTmVzdE GwZcSzkVnuwL96RAWxnTDw NWH1PO0gBZSowwaoVAUmNJ NsAUK6OPlgfS66bSZrQQIk CPLvnJTcuM9Mr5eaETDtoC KcKYQ4GVgrcKQkRXRuSSMn FYduBfTgH5KAGYBvZcDqDN N3BBYvJFy7NTz2SG7HEiEi YMOqAAZgCvH1ZGMpVQi6ZY asOY7FYTJ6Hvg0BQZ2RWT0 NTMyOCBcXHQgMiBcXGYgQX ZsURddKXgjjBDoDN7keVcb odQ9FVKwZEsjPUKdLNIreJ xsQXVWf6smpjAjJKArE5m7 M0NrS8WbFFfzMl1moAMsPU 5EIPErqSBCJMJ3XW9cSPVR ClxsdHJwYXJcbGluMFxyaW 4xGE7ZJDp2khHkPRBmNJpy ywLdJBHbF4XnztWbOOajRH Zutf2qqYooNAteAoJzTJNa h2a0wLH2eGEyfBO3dVEwqY jdHxFsCW2sjKLiGB4iGXii FFrfbsVyg3TqUW68zRRofw XvlcDnMEU8ZnEqEEmkQENh u0h5uQwpV53bw24mvhmonB DzTFHjAS1kiJ2kPdNklvZz K75kv5cgnMIai0GjiUKxdR lwbGUgdGFuLXBpbmssIHBl IYScF3OxSVZbRAQxt8D7UC Mfu0K9ZFMfKr32RGgbWr4g FKjfBR97CHHsZRdpNNYoZ2 AvM6N7TYqlQEJKzZRoe6Cq H4zhBD3gkIRaz8LrcTe1xF BjZSorWULtlP4kkY8oFfFo XHBhciANClxwYXIgDQpcY2 WhQMMoUvZoEYctvShcbN5a BYBnZ99kb2ADx3EfKXFuBU kyo6ascJhgj5SccUFsIZrq QYTfzCPyWAownF4dQvMgk8 rxxZs6ITltbcC3USVoxt1Z DeyqCysxsNiaw6PlyXRrZZ caMEMeUCLpRQfgZBCuLL2H CsLkZIiWKkobGIupOcR2TU r8GHTMMoQhVzNzNogrCCV9 RtNzRSf8FVd4EPsALdG8DE Y3LYPcSmSkNOQtKdfhLFc7 IDIgXFxmIEFyaWFsIFxcZm nyTTbkV49oDsSsPlbvoLCh csGWVzKQz3n2lSjrO65wi1 9wZCSAkhOcp4EfmgNfCuqd ILYnXTaqPZCiZ85av2BBm2 HkHH5OVLl6jsMmqgqylY5i XLBoasVfDHictEHlM1hlN0 MbOCUfHuKwKfCnEYk4ACPw bF0cZy2njIIcxB4csPEoON guIZX1eTEuYZKmCALhBDSj PP22GRdMXCUmobFdXQodtU VkaWNhbCByZWNvcmQgbnVt YmVyIGFuZCBcdTgyMjAgXC z8X9UkjLitCJBvq9hebt23 bbIcl7ZccjFcLYFryEOcEI 3pOmwpsE45NJWgGANxSDKo xIagGZjtQmGuatSfQ60ms6 upgSYey1GknPXmePpdcSWm dGFuLXBpbmssIHBlZHVuY3 JpJQLwHKGrn7E6AWVrq2E1 ATMqBs4hOHwzEg5fNFmpCD 92CHYeLVwvXCTaB4XzH9Z7 JGvfGYOWhTMsk8UpY6lvZL 2yvSJjr7TosNe7gTFnEPva CIVnbH1olJ3mSQLvYCIvES ElwiMAAcjmSBJhABgCu0Lj lKohOEEuE5d8d56gQ4bvvG UaYXTKBFX0pAEgzpBfwKSa KY5PORWvjjJHPlwiWwVpVw MyMiANClxwbGFpblxlcGlj WpIhzDXiLxJuzGfdqQ71HL MarYShMDA4KI8zTJZlttoz QDDcLVEhDRR4VDtatY61mB TfLCQqPQVosQZlaW0SLWAw YJS8OHdbpI34aNVaTS7TYJ VdQZK8XJIfdGFtHDR7VO5x fQ0KfQ== MICROSCOPIC DESCRIPTION t9wawJScONMrtST3LdAyKI (test code = 3371) Sez9ipd0HfoQNrvJLhROgs rUShxeLhol10tAO6uR86CR 5vPAJzHxH9WXWeccP0Ckf5 ARTiPNXaqCRvZ006z3eeo6 kiyzOttLN5gUfnACTjgxzo VxF8DBpiDPPjrkvhNGp8KF oiICMlsPG6XLRjdNApD2Fa LPZaFN5fhmp9RSQ3MNzfLE KaJkO1FKJygRKlRJAxuTvt UTzag863LYT8LzPaYBJkwe YbhDtybA5yJnXqKZWUBWMh h6KcSFUwMEFcyekqCHXoVI Bhcn0= [facility] Diego[facility] [id number] 09:50:09 Test Item Value Reference Range Interpretation Comments Case Report (test code Surgical Pathology = 104) Report Case: [id number] Authorizing Provider: Angela Loco Collected: 07/03/2021 03:04 PM MD Brian Ordering Location: [address] Received: 07/06/2021 09:08 AM Service Pathologist: [...] clip x 1 DIAGNOSIS (test code = [id number] 3220) FuZzEwMzNcZnRuYmpcdWMx IHtccnRmMVxlcGljOTYwMV shiaEnTWIklXDsM4Phzgmx URhnES4sGD8doZqtbYEgoN WeIWYkPhFrp9hsn184uIXy b3lbQLNBqdxhfYf9fRawX1 0cm8Q6YicyZ12ueDQgIZV7 RLIfTBSdqAZkOUSjGOJ8PD DnaAPqP1nxELAlEQ6rfrka HFnrOYvnQFAfvJU5ZVSqsO VbA1YtELRxWIahHSMjuia0 KeXeYx6eaRHhrDxmYZztNS QaVBApSYniLZLyQiKiHW2j O10HU39mBLPTJ8SXNYROJN zBOLGENN6WR3s5PSLxbsAy LSAgVFVCVUxBUiBBREVOT0 0BXYRcnbagHZYqAg6rP50Y R00xBPHYZ9uRY1AIX7OCAY pOTpKDA5eJQKtuKxuCRVIA KcysLGSjYI8tUX3MIKJUDI lNYLSVBCbQBV9EEaYOXbXZ RJEOJVYSUNKHCI3PCFXyzB FyICAtICBORUdBVElWRSBG N9TjRHmCGI4AVhMBFJEIYD UBGVZOVARxW5FeGUOXMWbR IX2XLKigGXEgiDRqSXHiZV TVBY9TWGHZZMpOOQ2CD5KZ EgPQLakuSZ4AJWIwJNVME6 BTWTpccGFyICAtICBNVUxU SVBMRSBGUkFHTUVOVFMgT0 KdAAYJBRqHLmZWWSWOH20R XHBhciAgLSAgTkVHQVRJVk FdAx1ROOrKR7rrX1HMIMBc ROtYVWkWQ0dEOU4OZV6YRD eXViLKY2uvnNGnDRWjisIu yJUiHGBrHUKBAL3BQVZBFn XXX5YSOmCHFFGLRAaVYCGQ WS7ZX7d5YHSggkCnBMWrMS GIMNrZJVRtUpRUT08GTyEQ UC6EAHBCDrKJGAKmWDOIDc 8VPVasEDOqWH2nQP2TX1LI SVZFIEZPUiBISUdILUdSQU TJPZCNP9ZUFWWNNROSImOU EYhOY28WDdIQFPSlps86FL D2KmHmq0A4WSZ9ASEtMAQa w4ecWRAtrQMnKvYxMyVfOi UyRzvuhLEqZDWuPzOys9wk f337jSWgm2krUVYzOhP0mC MaIENkjQUaR264VFEcMKjj q5vss7BrKTTniBJdr2T6YS AOdbedqXg6rMntJ50xw8D6 ZatkJ8uzQCYbKEIcE3KtEW 9cRKEoDsd0DKZ1MJM3FOJw ZEVeE8JhBJ4fUKKxbEVcYN k1f6wwoRhiHISyHVO4i6fn OJnoozFzWI4ash0imLu0v5 xjczEgRGVmYXVsdCBQYXJh D1OdtHizQt5uxJa0eMmjCf vxJNX8Wms2PW4kln44znw1 dCagCGMtnfutQtS7ULmzLO EzrsatTKh9STfwXEZolOS5 MINntVBoQ6BvQIZfPM5zcs j9ZMI1FTwfTGUvVoD0DJQn aKXcEYQvpHgvWMdml794GI A5HwYdQQ5oN7Ltz7Q1lB5b aXRcZGVmdGFiNzIwXGZvcm 3qtTNfZFgtv0UmOGJ8kvB9 qQAifURhVUFaWqN0JMgkYK 6vfc65RPNaLIL1na4wnVPp gDkwbfPonDDlPFgsV9ZkFV Aar691XRQkN1NpZQTqy6P6 zfThLjKlUKAfuMD2juH0OA OaIR1wvifvm2fxVGejLEdg LCXsyyP3puI3TGYrxVQoH7 MegR6iOCNyHK3eclabv1oy TFB0GFxtXJThDML1CmCgOL Mrk8Vfmik1FeXii3EeuHXi EUgzA11ml325HFGftgDeS9 xwbGFpblxwbGFpblxmMFxm lbH5REWpTDygkyjyHHDvZY diZ6vyLsQqKSSsiShjJWli m2HwHCOjKOWaKkZxiHMzJK ErFuq5JSTybYMoTKAxIyBv M7qetuwqDfNZSYHeg5smI0 pybCUEpWAaW0SeEVztbuMs NQcmKXqzJYFfDAM2GP7lVK PjJPXblb80 CPT Code(s) (test code b2urfLKaZMMbqZY5CyMcHS = 3357) Klc4izr6GqbHZiyAAuCRii lJAqtrFubl55bSE6yY30TD 9oWXDsViT2CHFezoI7Ejm0 WSHlVXKnpHKgO976n5bca1 isrhNlsQX3yDicZOGyirev OcX6KIjmLBBprdtlTGu2RZ twAGJzwWW7MQJxsVFwG6Eh OXOsFL7tran7YDB9KScfYG IvSfS9XLSteSHnSVGmuFes EKvnk362QOX1YpBgHCDbav UiaNssoW1kToTiYGM1MYMi SLq3ABSzxh8= CLINICAL HISTORY (test i1inpIWwRKNzqFC6HdWpVR code = 3356) Qur3psw0SftSLxjCSuLZeg eWDqdlWyda11tPW2hP64CB 0gYZVfRiX2VUBmrfM5Cmx6 EKDuKAPxiXLuF813y8way5 fbzkKhcCA1QMJbXPOlW4Ak VH8vMFRkwMVcD05ipESoXC M3FYCmHYUgcAUnTXQlVGJ2 BGVdvLLeX2elGSNhUX3zkp kzRSasQBcfWPNtsEQ2KCUa gCNaW5PpYFXdRWtnZAXhgv y0SbTyDd7hqCAiwJraMGcn YXJkXHJpMVxwbGFpblxmcz TuPFExOHQRcb6kRQRcQkyy nQCfB3atVF2kqGctJRI4vm GcNAHjWfmiOJDstq2oOUIk WoqirEFfL2uxGJ6jhKbcDA E7pTPpTOXyqz3= GROSS DESCRIPTION (test h2gvuGYoGYHwtZXGJMJnDz code = [id number]) uigiSnAOWudLHhX7Ljqaiw IZxgQF0gJE7ufXisdOPllS OiJA8NUQOrOtOyOCFvqFFv hqXsLfJrOFVlzVQsuWI6YR FhKN7ffuxrZJxkSXhvRJFm dnD7DPOwwRBkT2HwHFQpTL 1nypzrSPL4BSukiQ4eisXF OjkrFa2hgWYetQvkKbFfKi NoYXJzZXQwXGZuaWwgQXJp TAq8dD6GWmwiB87sd9Y5Fz l8GZDbPDGgK9LqQK6kZNOs uXRpK93ADivqMEA2JQWNLl pnXHBqXT4Tv8kyDATvjMEw NLQ9EIizeEQiBFSeVOZrWH u7XVMoQIxysDWvUT4raYyz LhmyoZykp6FahZQxMUnvSS JjSPAlCMhjLABtPO9RDsWt SGfUVrinYLocHmO1WUc1XO CLKhPiIkUqQzeeCXG6MEhn DIm6LAp5VHkNXcA7AIF4AH DjZJstEFErNtcnDTk4CFSb XFxmIEFyaWFsIFxcZmwgXF bwR74skTbaeP4cTS8zFS3k lIPcYLRhjU4pWZ6nG0YpaT 0uXHBhciANClxlcGljTmVz dERvYzEgDQpcbHRycGFyXG xpbjBccmluMCANClxsdHJj aFxjZjFcZnMyMCBSZWNlaX IwHGYhigTrx0DdMCjxyzMn YWJlbGVkIHdpdGggdGhlIH HvpTxqhoKuH2O3lkLjAC9k HTUaXYNrH3TfRFKlS99zQQ DhoV8nYCBtLC4iNXv0HMNa BCZiEzddkN7fbBFuRXCweB 0nOVEkK3EyLeZkf17jtHM4 fcCjNoLiXWTlde1xlN1zRW Qshh3rUXMjz5L1VTBpm6N8 PLZyGV98OTumCS1iFKahVK 4xIGNtLCAwLjYgeCAwLjMg jSDaBzExK78pPjHhBCodFQ EyULRygHSvDPfrCAD0Lu7j tSKvPIWqivP2y5OsJIqqXE MoTyjxWSWeRQywqJTnPR8Z ZHNlIIltrnWsNE7LQRCxTO dtYMTqnLQQLXV2IY5lKEcf sGErjomvRIFvN5VkP0Zwye IipAVuIWXkcbQys4ffXCZ8 XHNsbXVsdDBcZnMxNlxwYX U4NRm2BWkpFOVaN1YmJ1Zj WIcfIOJ5MBHtZtEwCZOtRZ KAXoLxYgCjXuK4Dvd9PhQi RAw0UGysS9HRNSCtWOB8UE V7QSO7ZzV7MRd0FROJEu3s OOPvFFE8FlX0PVN3DkU9OF xcdCAyIFxcZiBBcmlhbCBc PPXkFGnxojM1QCObXCPbbO ehuH8iUc4vUT6plZMhPKPk vC3kKR1kDrjbaITfTGAeUI 7ggB3xRqbsTVGdTKejLAYw Y16qk8QEs0WqBQ3YANv1kt SbpviraP6aKENgboAcRXek fJRzU0peJ9FsRSWkAvHxSe BgUTz7ZMHmgX1jLk7rwCRu rF8otVGhRMsbSXW9pEAxIU SjYCWpRWBeQD78PZxXWVLy bmFtZSwgbWVkaWNhbCByZW NvcmQgbnVtYmVyIGFuZCBc bHzsErHgCTi1D4RiyZsiLT Fkj2lopd6chEohoJQkk9Lb prVbixwpVXHtSIHca23cuC X4byRiWqQlsTq9pYOhKQL8 CO5otEhjyrthnCZnNOz1cC QlAUUgXvBpdOucf0OlYAbv LjQgeCAyLjEgeCAwLjQgY2 5liE9rKSgadjRzSEGhKK2d YVXnVVXjpMSclW3zioDodd IwhLPmgWB1UMAdkB6xoE72 soCdrlBNBI5hhUEoIY3WGX BhciANClxjZjBcZnMyMiAN ClxwbGFpblxlcGljTmVzdE TsGkKoaDdblA98EYGksIKk JIT0VU5gVRLrvhdkQQNoUJ FcEUX6MIjjmP13hEVhQEEn IKWtcVXzzX0Jo0kjSQXamB VzWNJ1THscoLMoCHNoJTXf YVihHxHxG0GDOKLnWiDjYX L0RSNpISy0TPk3JO6DNsSo RRSdUQUlTkL5FBDkNLr8UG gcFC0ENRE6Ntk0XVN4CTA6 NTMyOCBcXHQgMiBcXGYgQX DgWDboBQqolFKuQJ3zrXlo tmT3CBJxJAyoYMYsDNJhpA lhVMRKk8dqoaZmRAQwW4y3 H1OeD6NtSGhzNd6prDZaTZ 2ORBKqhHEKMCH3WA1zZMZP ClxsdHJwYXJcbGluMFxyaW 0rOC3GQVq2npHtAOCgSUvi hpFjZVAoG0NvtjKrQTnbWL Tzcf4nrDdaOXffKqXiJKMv k2y0eJE0pMYncZJ2fLFsiB rfZdXcFN6jvZFdQX1qQHvd DZbuiaPhf3BqRB80lACxbd UnldYlWYK1YyIdVKijQWBn f7s0qToqW30hi40popghzA FnTJEePD1ejQ7eTiImxwYx T07nr3rghHNqt3LzuVUeaR lwbGUgdGFuLXBpbmssIHBl OYRbD8UmJLAjZMEop4P1VJ Wie3T7WYCgEq71SBruPm6p GNvdVU92FHTxJQlbWBJfK2 UaS5M9FQdnCMVRpXNfx9Bo W6xaWZ5gqXNec3HnlIx8qH JnTRuwIGUgzU0pvS6yHnTp XHBhciANClxwYXIgDQpcY2 FfGMSpLtAuTIfbdLkcuS3d NKLeT17ni9WWb5TbHFAiQT sqq1nnoFqhv3PerAHqZIju JTEizEYqGTetgL5yQkQqd3 ycbQi8ONupswU5BHNcgo5C BcquIqzusNwsm3EbdVOaFR hdBUYwOYRgJEblUHIjZN0R RqTzKXjOOhcgHDcyXoS7FZ x9JHFURmZdApHhUzpePDV1 QwJlKFc2AUs3JVsHIkW9QL P2MKXmCnDjWKJiHqgrYAb8 IDIgXFxmIEFyaWFsIFxcZm mvDKlxT20bYkZbOxmysFJk xmZZHtVQw8s9cDbzO59bf3 1cWNXKgaSnj6SmfpIiPyxf DCSrKDuuPFJuW94vr5GWe8 HbBU5ZZNs3kjAbildfjB6p RQYzveEpQCrkdSJqR0fjX5 HjXWSiMiVmLzHtCJg8MGGe bX1zYc0qaIIymS3ijVVrIF xrUGH8zXKvCGZfXECvFTOe UI58KKsOLZLsvqNaMRoylX VkaWNhbCByZWNvcmQgbnVt YmVyIGFuZCBcdTgyMjAgXC j7O0EqlOxoRLSbr6tcws57 iwIdm4RrfxSyYBIrmPExHZ 6gJonbaL53BWHwOJJxYRLq sLmfLPtkHmVbvbTbQ06xv5 aauXBnm3FkrYUzlLmesUEm dGFuLXBpbmssIHBlZHVuY3 HwYGXqFFLyl3T1PHKyo1Y6 MOEzDm9kYZblJq2aHGwnBW 51JNYnQAwiSDVjK0CmA4K2 GHwxOCRIcNEpk3QrJ5dvKP 3avIObe6EwuPg0nNYzRYdu BOHqeA0kjZ1wPPWhFAXvCE LtedMFWnpnKETyTTpSt9Rj yYuhNSKnX3z8w59cE3vgcE TxMLNBLHN0xHWpwlCiyQZr HP2EKKZjkkMGIxglFdAoRm MyMiANClxwbGFpblxlcGlj HnCpyBHcOcXheRkolQ05SP YzwPOzYTI8RP3dISOhshuv CNIvPTJsAAM0UCfpgS92aC RsQALkOFAxePQzdN2FYAPz GGR2RDczmX33jUTmRO4VEA EpRKT7GQGmyEUvKDI2MQ2u fQ0KfQ== MICROSCOPIC DESCRIPTION z7kjhQTdCBLazJQ7LkOoIZ (test code = 3371) Suj5pcr5GpwZPgfWVdDRxj pHDsxzBcwb81uJQ4aI46HT 9aKEJaZjE3TDLkauV5Amx7 GRTpGXKaeIZkU392v4fkx2 mhlpFnzJB5hPwlCLAiblgn RyH5VIqzXFQavgahGWe3OH vrTONbaMC9EZTruZPfP5Ok TAKjUO2rjna5JSQ0STexRT DpTmD5AHDxkNCtFHEutXrp WBkts991RRS8WqZwLBNijg ZfqZefvX6sQgAdOFOFOORe l3DdCRWcZURmncmxGVAlNE Bhcn0= [facility] [id number] 09:50:09 Test Item Value Reference Range Interpretation Comments Case Report (test code Surgical Pathology = 104) Report Case: [id number] Authorizing Provider: Angela Loco Collected: 07/03/2021 03:04 PM MD Brian Ordering Location: [address] Received: 07/06/2021 09:08 AM Service Pathologist: [...] clip x 1 DIAGNOSIS (test code = [id number] 3220) FuZzEwMzNcZnRuYmpcdWMx IHtccnRmMVxlcGljOTYwMV vrqrTpBHTciODpG8Evbvcd BPbeST6rSU3bhUqfnGVgvS JfWRUvWcFkc9emf404pSCm r9keESRTskonkLw9lOdeQ3 3ew5C2KskjJ82zfPFmQLT1 VBMhQPYbjZWpUSOpMQP1KE IjeSLnO9jnFAGcRW1lydue VExuPAxvMFKewOH5MKCzhE GeC4IlIOWiVKuuHKCyydm5 MhGqJa8rrCTfdBxbGXquCA LiWETiKTgkFEWtYdXjIC5q J18NQ53oMSMHT4CKKXPIGT pGNADPLZ0DM2v9TPBrciYx LSAgVFVCVUxBUiBBREVOT0 1HJMQnpxsxHSJrOr9tJ25X R29tIBLEO9mPB1XYH6IAQZ wNPrBRW4aKJUheAziYENAG RngxZRBqIM6iNO8TEYBCPM uUMPOOZCeZKO2GEpZREvYF ZWKZMBURIBUFUK9AQWMnhF FyICAtICBORUdBVElWRSBG A4KqBDtQBL9VUdECZYLPHO TIWHJTKHLtB2RlLGYPMTwT AP2FPQlxPGXfjZHaZANkIL QDAT3PDZMQUQkLFR4KQ5LG RyEGJfwjGK4TDJNjFYTLY8 BTWTpccGFyICAtICBNVUxU SVBMRSBGUkFHTUVOVFMgT0 YhUSMFQFcPWmUYRVXEM28C XHBhciAgLSAgTkVHQVRJVk VtQq3OZZtLO0qqX8YAFLPn QDfDOJvRG7mMIZ8RNQ4LSI gDVuMQQ6fbaUWmOJUghjLo jBPbIJObMBFCRB3JMLDEXr UXQ5COLzWVHGCLNLeSNBTS OW8WT0r8UIVkpuZmQIVbBO NCVEgPMJVsKfSXW16IKaDM GI8WAFCRWnXSGNAjTJZNIr 3ITYdaMZAoVW1lWO6TS0AK SVZFIEZPUiBISUdILUdSQU KOXTHTE2TVPPQZBYBXEjVK AZvZC22PPqJVVYNrqy48IA C6PcNsl0C6OIG0YZWaPKQd h6uvICStuPOoSzAuFdCaCj RmFcofjZXjCTZxJxHyo8jx d610zOSkj5dyWCKaAhL9iN IzSHPfbBMuD362GITiTZud i3fxe2CzNXPheAYdn7C7AN IDzpkaqUm5fCylB32bu4E7 StcxT5erJTGxSUXeQ6OuDE 9rXNLsRoj3PWI1QRM9UZCp NUHvJ5LmYH2mOAChjQWuAR w2g7svjKapGFQqDIQ8p4ks IDptqxToYK3zqo9jcNo3x1 xjczEgRGVmYXVsdCBQYXJh R2SetFlpSw1fdKw2wZugEj vwLJH3Slg6DN6kqo73one6 aYapLVHmsfhfArW2BLgqED DcrshoGTm7MFbxKNWouVK4 VQPteAEeF5PkFGXsWL9gwa u7PNC5OJlkUEQlSoJ9XKYz oESiHEKshWuwXCjhz970ZT T8UhEnBX3pD8Bfp6U1uH7v aXRcZGVmdGFiNzIwXGZvcm 4hhIMyWHrkx0JgQHS7koV7 yKXawNVwUXCeKkJ2PShvKA 8vod04OCAzCXQ6pr3crZPa rCxanxXbkELzOSabT1ZfUO Vle930GKNnO8HoOSQyb7R0 utNsZiAtEKYymCS1ycY1ID WnKL5aixqyt6kxYNbnLNlb WFRshiX5raJ1XRWyrVWoB5 QduX3qPPMwRE3dwtemf3lx GAY2GHxmXKTgRJJ5XwZsCP Gms2Bahfu0YqReh3GggJLs VJluO75ma316ITKrxnVsG9 xwbGFpblxwbGFpblxmMFxm qnU8BAPmGXrpwjriNUSxWN qeC0ovJcCxFLPxjXisTHbi v4KxXUZqTDGpJvWrdIXyEI GhQlw9WVNiwQRtXASgLoRj F7enqaupOsLUDSXle9miD2 nguTLFeKDiF0DwSFpzvlQq QJffJEzlNQKrTAW8RD0jJP XjKHJnde76 CPT Code(s) (test code a9ppzWXlPUHsrON4KkEtFT = 3357) Kvx7cmr0GriBEruUSuWGle hIFzgkMhuj61vJZ0tU93OS 4fHZCdJfT9VNYlwdD0Idk6 RBUhIZMpvFAjO322q7rmz7 ymxlHvhQK3eLzmGZVnxrql UkV6YYzqHZAfxbufMXx3VE zmCAWntPN9BWOupYFcA4Sn JAIuON1ymze8TXY1GYqtSD LmHlC3OVTteYVnQNBskBuk RJvbu216CWM2ArUvSLDppq IxmLkxfI6rZuKfAOY9QBXb YIm2HNMivq1= CLINICAL HISTORY (test k7zioNLnJYUzbAL0WaZiGX code = 3356) Fqz9drd7UlnUZkcARzBPcu bVXxtxSyre32cTG0wM19YP 9tNSQuPpR6DYRzcnP6Yws8 QDEcPVCjvAUnH358y1mrt3 kqxaEcvMO1AWXiVBVzS8Ws LT6gSYQghTQkV30yuIMuRG B9YFFbFCEzqDFyWSYfYSP3 UKKnoLOgE0noNJGiJX3tth wyAMmdPJhtYUMlvKG3AKOm xQCeQ0NrETRbNMhiARJgep a2RyNbBv2xjMPwpPunBHmk YXJkXHJpMVxwbGFpblxmcz NoHAPwPOQFmd8gGBAwScig oAPzG6mxPN4xxNitJQB1ih HvCOTgRqvcPXUskf3cGZSm EsiwoEAkF2wtIR1zhKkoTO I8qNYbNPDvog3= GROSS DESCRIPTION (test g7cqxFDwMCOldRSMAMDdZa code = [phone]) ziwlXkJOWvnLPaW2Uihigw GAvuIW6tGM8ysJucpPPudE JxIV5AZZRxWiMjOIWapWFu gfWjLmZlMUKxtROuuHR5AJ CwKI5mxcmdFZqbVGrrUKLs faC3IUPlvUTcY0XeJJLbOM 1kbpddGDP1RBathO0mypNT BoauPu2jxBAxtRjsEzRsVx NoYXJzZXQwXGZuaWwgQXJp GIx9pO2WPkezZ28tb9Z8Ua h4DPRrRFZeU5UgKV7qQMGe rRFlO44WNjfhISE4RFRNKf knHLYtET8Yc9zpADXkkTTh NSF4KEfpcWLzQXKrOGEbPC v1CQGxONhyzHEfQL3zoHhm GfviuRnqb1GxmHMzBRqqLC XfZCFzAJmiQASeLX5GNnPp TSoDChliOCroOqZ7JOz0TA QCEuNiNeGoZbibWOL3AVrr UTp3BJo9QTaTZhQ5VII9HT SlGJcoGCFaVybrGBz5XLZa XFxmIEFyaWFsIFxcZmwgXF pvW33cgConrZ9fPQ7xOZ6f sNPpKUOaeV9qAO1tY2NakI 0uXHBhciANClxlcGljTmVz dERvYzEgDQpcbHRycGFyXG xpbjBccmluMCANClxsdHJj aFxjZjFcZnMyMCBSZWNlaX RlWQApgpEfk6ImUWxbxiWm YWJlbGVkIHdpdGggdGhlIH XiqLjnlwPuK0L0deTwUG3a FMPhNFHuY2HaHKQkN97mTG YqeA3lFCFgUS0nPSv8NNLu GOTcIdtkyY9uqBWgXBGpnB 1vNINxV7UkQrMwt16pbGX2 klPzTgRgOPXvnu1evU8iFW Xfog1cYWDdv1S0CAUsm7Y2 MHUvFP99WVgrXF5lGKzjTR 4xIGNtLCAwLjYgeCAwLjMg xZPaUxIzM92yMdYoKNueVE UuBQYhlQHzFXnrWKX5Yt4f iONpSOIoqpV9z3XzIIwjEU ObVerpVTPwOGavkZXxWQ4X MGLeWSbglyIdZR7AYNIjFN acXJQogZFCFKQ6UF7mXGgk gYFbfenqCBCvC1WkY5Gqis PrwWIgRDZepsXwv1gpFSG4 XHNsbXVsdDBcZnMxNlxwYX O3RAg5YSzlKKDuM6QhQ2Hi KZitNTE4QUAbBeQkDOCtSY UFLxVtVrMnKlY6Xum5SdKa OMc9ZLiyE1TMEVQzOWR0ZI E4PNO0KlE9GJf3ILAOLv9m MJJsWCL3LgU3PVV4KaU8DC xcdCAyIFxcZiBBcmlhbCBc PJZjCIcxfjP7NRUuFUAwhH zdqR0dOm6dMH2yhCAvCSZs bH1oVQ6bSikmtOAcOXBqFZ 9mqA6iTierIXMhTBolAKJn D95wi2OLn7AeFC2QXXg3ih GesybnxC5qTIVprkBvMMzz wEOpK0vqX1EfYNNwZlBmNw IbFSz4DJNwmA9jJy1sqUVe sQ0omQJhBGisIAG2gKHnXR YgGVXrTHItKC89EUlAOJOi bmFtZSwgbWVkaWNhbCByZW NvcmQgbnVtYmVyIGFuZCBc qTgkEcTbGKz1H5UwsIkwXX Xkq7fagt5whHlcwEVcn5Px vmEwsajrAMPqPRMdm41reF J4gnFaIlBxyWc3sDAbXWQ2 MS1njEvzqniykSUfAJw9hW AdLHRvKiKdnXkny6VfCZof LjQgeCAyLjEgeCAwLjQgY2 1ufU4jKEulukEmYVJrCI0t JMUpPTDfbADxtM0rstWerd AdzICzcGI1NNKxiK1lxT28 iePwjhLUQQ7aeDCeCM1ZGP BhciANClxjZjBcZnMyMiAN ClxwbGFpblxlcGljTmVzdE CuRnJbsQucmJ17MIHfuBRp SWB8RN0hDIIhdtysZIYqZA QwUHI3EZqscE24mQOjHYHb JLBmcMOafX3Kr2vwDEPwmX RpKRF5LJijjAYcDQMqZKXm XRtlEcZdY4ILGTDwOzSlEZ G5CABzTHe2XBu9HL0TVvYt EXSbOYYjDpI1JHHwZEz6WQ vmTB5BGUQ8Adb5HEI1CSD8 NTMyOCBcXHQgMiBcXGYgQX JjRXlrVYinbTNdBC5kiJvk hzA9UIToTUkqPKJkDWPcoE ugOOLUf7fjfjJcIJWpH8o6 C2MiA5MtGHhsSd3cwJXoMC 7GPSPlhHUMBEA6DK5yIBAY ClxsdHJwYXJcbGluMFxyaW 1fCC9KXXh2bpUoLEZkADiv sxShKCVgE2MdmzBfVYzjBO Yube6erMhcPQowZsRhWLJj w3h3rSQ9bHYsaEF1vNTtwU jiIzPeZE4jsOVdYN5cUYqg WUdhdsDvo6VtRG66vBUgll KnpaHwEGG5ZrIqNEdcCHWy e0q2wPtqI03pu79qwuwxhP GgUHIuNB6lnD0gTcFeisOs K81dl3xwwBPkm2UqyTPwtO lwbGUgdGFuLXBpbmssIHBl SGErN7DvSUKnERYyz3U1HS Hvf7F3ZYJsZj49TUsoBr6n CPewWY58XMKhILpiMLHuJ3 MqF6U4UCpkSWGEcLJxi9Wo B3kiOR0quULmr0SipQp6eV QcYWfhTTXsxP1fgG3bKfQg XHBhciANClxwYXIgDQpcY2 XlUEBlLvJfARdclDgdzZ8z GLUrF03yz8COm9LoPNBpMN ies3ewtCmbb0GiqCMmCLon VJHclPHxXEkvjE9uOlFia1 lrePl9KTkoqqI9MUJymd4I CscyEhjksXucn3SjhERhPC daMHVbFTJsOMjxOXEsZO3R OxIuBQfGJsjcVAphFeM8BQ l0ZLZAXaAyGbNiLisoGYP9 EdXxRPf8ZYn9GXdZMvX2LW D2JBEmPuAaGLFyOpfhNBm6 IDIgXFxmIEFyaWFsIFxcZm oiSJfmB80vGsLnYtuklMUv awFCKwBXh2z3wTqmF66fx3 9zYCIMpjErg8AgdeXcTnoc PHQcASsqJILtN25kc2EIh4 TtFI3EWBs2crIifedxyN3g VBRjroDjBPadbEXjJ1elB5 LjBVWvHvPjUrFxVCc9XHYt dK5oDs4fyTZuoJ8lnXJyRI olEUJ7wLTjDURfFDNeAODp HO31JWwVLDLfmoRfHLocsE VkaWNhbCByZWNvcmQgbnVt YmVyIGFuZCBcdTgyMjAgXC f3W4DlaRrnBHCip5oetr33 hrWua5DdlbGhDZEagBQsXI 1cBbbogM37JYUgGOBuSPKp gQrlMMwdMuOybzCrI23rp9 eyhMCsg2GnmOQcfGnoxBVz dGFuLXBpbmssIHBlZHVuY3 ZaCFTjGFJug9I0JAYdm9E3 LTDoCl4tDTojEc5gUDcjUW 64UZMdJFyqSGBpC8OpT6U1 QBauBNAOuXIqh7CqM1hoQY 3wrHBly7EhqMb2cSHmAIvd AJBprR7zoQ7fNPJeEXUnDP IjavHYKeejHPNfMZgHr9Qp oNuuIZVqF6e4y16wR4chlI QyNAFZAQV8yPHyndAjgKYu LX4TFIVilkMHEnwrWzRdVt MyMiANClxwbGFpblxlcGlj GeXrwOVzBcLywAaylQ39AS RbyRBpYIU4XB7mCIYuckrg UTOqWZXjLSP1XQuwbQ26uE OuYWBfHAUogMQlwW9JTOVm ORV1IHiemR61rRZhWY7HOL EkQKA4ZLRnhPXjPTQ4ZS5f fQ0KfQ== MICROSCOPIC DESCRIPTION d3lhrXHdPPTxnSX5OhSyUV (test code = 3371) Nct2hrm1CecYGxqIKtAHlh hVBocwEcce36pGJ7rQ64CH 7cFAObBdE3MEUxajF2Jug1 UYFkQWNuiZLsQ786q7vqh5 brjmHqsNZ7lRucMKXohorj FsE7XYthELIipaecOHq7KL mpLVMbgVL6SLZrkIUrV0Tq ENRzXE1ckfd2DXA9ZDtzGK UcHaE5ZYDheSMwFFRsmBgo YMclu031KNI7VnAzKZBxdl SmeTbuhG1yVtUiNIEVFHUd v6ReXEHhEXZtywkvJJLuWT Bhcn0= [facility] Diego[facility] [id number] 09:50:09 Test Item Value Reference Range Interpretation Comments Case Report (test code Surgical Pathology = 104) Report Case: [id number] Authorizing Provider: Angela Loco Collected: 07/03/2021 03:04 PM MD Brian Ordering Location: [address] Received: 07/06/2021 09:08 AM Service Pathologist: [...] clip x 1 DIAGNOSIS (test code = [id number] 3220) FuZzEwMzNcZnRuYmpcdWMx IHtccnRmMVxlcGljOTYwMV ogobVhYTNdgNNnN6Zgpcbn OEoqHW7gUX0gxHrliGWzfU HdIWNcDvVwi0nxs737wYQi w8qfXYKFozitjNl4nHhlK7 2jz4R3LahxG69dtCHdKGR3 OMUrZVGloVFoANYaZMA3HQ CyaTAdD0auMUQaGC9uysmw TKbwTHcrJBHniYN2LESocV ErM8GkRVOvBBozAZSxhah2 FdXyXj2fjUXreIlbGVroNT QeCKUqIZidPXOhUjTlUE6u H60ED70yGYSQR8VRPDYDOI lDDLMMAV4IR6e2CQFwaqFm LSAgVFVCVUxBUiBBREVOT0 4PFWLwvupoOWRpLf8sH59A F81gHLZYH7dEK2PEF8YLGS eLGiGTR8kILRsjLgoUSFAY DztzDFEcYT3yMX8UQITIZB jZDVIKXHcHQW8KLxDGEhDB FHWICFOKOGKMXU8HCXLrcW FyICAtICBORUdBVElWRSBG Z1HtRXcPGS6QNaRYYVXPBA LNQGYORQRaL7OwZFEHWFsS GS2ETNxtODGsoFTsDYMeAS JUHT4ENCMZMBgZUA8BK2YN MfJXYjbsWZ8QDLHuWPNLT6 BTWTpccGFyICAtICBNVUxU SVBMRSBGUkFHTUVOVFMgT0 IvHMIIJZnHBoHLSOQSH78T XHBhciAgLSAgTkVHQVRJVk UcDf9FEIyAC5leX0WWNJTf GPbRQJnRE0zKEO9VOV1OGW oLQzJNF4dxnEZvYPWqeuNw dENsUYJxOCWGZX8LGDLRVe QCK8UTPlLMOUIHRTgTQLYC TY6DL6r5KDFvluFmHCZcQO FSSOcLHBYtBiDXS30IAaJZ BI2WURLHDsHWOHJzHCAGEn 7MLXvdAQQfGB4kGA3TM3MO SVZFIEZPUiBISUdILUdSQU WMTUVFY8YAAWBMJKVDLxQH ABmPT00RCqKFEQLlqc23OX B3JoLcf2K4XMU6EGYiMIHl w2xsLGUlgWBzVxJcLrGeRj EnToxduJTcSVUwKfRmc5mr v828uJMtn7drUTEtOrZ5kN FcKJJatQCtR274GTHaYObd x8tqd6LcRTQeaVBnw8W5JB JXqmtjzCl1tHvpI18uv3A7 DtymO2stGPDoALCrU5ZhBK 8yUZImXnu5CXE9DNY5LRNw OIAyI1BwOY3iOPAzhAElBA u2i7zzrUqfJGSyMGK0n8ej EVchgzKzIB7agj9gaZg2j2 xjczEgRGVmYXVsdCBQYXJh U0ZtpIwiPp5wtDn7xDalUz taOPV6Ckh0CO1coc83jtb3 hVlzEUUpxndlHgF5PTafXT FllcdzQZx7PXfjCOWduNV1 YWEzhDZrU9AkYDBnUT5skq b7XWU8DNdtKKNzDyY0HZEk pFAfAYZhlTjoJWvrl862KL B5JkWoOW8uU4Ynd4H6gV7b aXRcZGVmdGFiNzIwXGZvcm 5viLZnHRgrd3QrLKK0zxX7 jOKqwLOxOJGwRnR1BDhcOI 3tfw61AZIjQYE3fj6xyFPm rLzvuvSnhCRkWZraQ4HvVP Kws341IRCnK5TmZBLhs9F1 znPeBdYbAQMiaFQ2gjH8ZT QdQG5alaouy4weCGcvCMiz SKGqcdA1rlL1CQIewMAtK1 RtmG2zXWDnYT9ditedq5mw RBE8MBkxXHMiEAH0RpEoVF Kmq4Jugsk7ZjRdc5JeaKJr ZWisV27ag112ORJdfeWbM8 xwbGFpblxwbGFpblxmMFxm qiH6WLIzMNnkhsxxBNDyEU yjE9biMzGhCTDzcQimJIxg p0GgSMZzFPMbFfOlzRYkYQ TqXry5NKYfgRJyKJEyZaDh B1hhaxhrFuOSETUju0hfH0 sqxBPAuYLgB4YgWLiqtaKs SJjeTFzpKTUwOIO7KX5eCK DhRJOhep02 CPT Code(s) (test code e1xcmGWhOQHrlCX1WmEiPV = 3357) Aei9yao1JcqUDzzGUwOAiy dBVtuiFkna37oAY5nB84VV 5bCNTvNaM5MCBtfiF0Zqf2 RWPuZXTysIOjE892k9ity3 cvibDkvDZ0nRhiLNGabeec GmK6PHayAGOtnguzYTs1WU ctXAHbaLX6XQXrbXJlS2Oi LQWxRZ8djma8HYW0QBfzTA JkCiQ4VGAswXMnDXFqyTsi HUxck840TKM9JpWbALZwsh KudYikfV7wSgGmCJX5YLZr NXw7ZXRebn5= CLINICAL HISTORY (test g0ogsEPyRBEetJB4UfGsKY code = 3356) Auu8vzc5EepSYlzWOaLKgd jRSscsVrxi04kWF5zT99UE 0dCJCiEaO0HHFcbjP1Pqv3 TRFwLPHhpNWbL385c4fpi1 coilChkTF6VXZwNZAaC6Ly UD9kWSUeqDIkH25utPTkEC T9WWLcQVQaoEFjTOQgOSV4 ZVCseZPyQ3nfXPYvPE7uxv ihNEohYNgzLFIbcQL8PWPw qCLgV5QvRWQpXYnkVJAipm a0VvWqQx4zqCWvnCgkSBqa YXJkXHJpMVxwbGFpblxmcz XtAUZiVCMWrb0tPTHwNufs cWQyZ1tiHP7xzGvtBOD2xd HiKIGdXsytGALeqw8sCSDg EfjddXIjW1bgOO4flYnrGG V9cBGyUCQhhm2= GROSS DESCRIPTION (test d5mmtVNsVHQztXAZHSZrQl code = [id number]) evzsGdULSamIScC2Miczdg NMecZY4oJO9ksVvifLTxiN BcQZ3UWCDvMkBnRWAzuCKn rsWzYgLkCZYcnGEwgNT3YS TxCI5tfrluPGcdGLfuHRLg svG3GZYqaLUjW9XfCFDdCB 6dpqgdVNI8KWamcB7dfaNK KmjqOa8hdBJrhTtkUvUtNx NoYXJzZXQwXGZuaWwgQXJp ASu5mU5BHcrjT62uo9H7Pv m1QXSnKZVfR2GdLZ8vFOCu gQUnA99SAzecXIW2WZARKq zkUIXeXC8Nx5ifKADjcGUo KMF1ZEtxzMKaPMVxSIXdER l6JTCeKOeprDNlFZ2wdVil VssbyLaup5CksJXqBTplCT JhYWYdFDbmMLTaFK3YKtNw MDlLRmnuNMdvTyN1OGe0JM TDWpTiYtAdJccoXIV6WHcq NXm3DZp4LWyZCvX4OOK6CM YeXBliLVPmXakcRKh0UBQb XFxmIEFyaWFsIFxcZmwgXF hxP37hsQyyeK2wUY7jTP5o vGBmOJJynH5wYP6qO5XelV 0uXHBhciANClxlcGljTmVz dERvYzEgDQpcbHRycGFyXG xpbjBccmluMCANClxsdHJj aFxjZjFcZnMyMCBSZWNlaX PpGBFxnuGri3LwUXklevDm YWJlbGVkIHdpdGggdGhlIH ImaOebfsMhM1E7kcGvZK4v VLKbMKVjT2KePVItC99lWN PcwS3gUFReQR5fNJt1FSEn FHLqTlzwbU1euQVwLXAigV 2bHTIdC0TbAyLpd98axYP6 yrRpHaUzOFUgyb6ixU7oGK Knws5cIBDwb1P9RXTed8H6 OPHwPU45KGeaQS7kSGofJZ 4xIGNtLCAwLjYgeCAwLjMg mLUhJaZmO35eFaJsXWevNG GfEANiaSWxRNhyCFE6Vq5v dBZpQGPaphB0k3OfVOfgVR TkWsrvBBQyJMoroPDgAM3X QYUbOSxhfoOxXS9BTMJkVW dzMWBahGZTZTZ2RO2iWPsh iFIbfsqkVEOrY3RkR8Kmek CtkTItFQMkvfAwb6odLQB4 XHNsbXVsdDBcZnMxNlxwYX I4RLx9ZWnmJVEbB3HrD4Ki GDsmCLF9CPZgPlWkOKEfXH RPGiEsQuPyUyD7Aiv5PvSd NAf6WYlqG0RBEBCsRUA7KL W7OAS6VtH1DZk5TJTRPr2v KALuLXQ8AlI3BZI2YwN6PE xcdCAyIFxcZiBBcmlhbCBc TWElFXlqfiI3ZBErQQNnuT flyF2aMx1cFQ8lhHDnAWNv sT5oHV2oZnocuBKtPFMfWQ 7vwN0cJojnRJElGMatSVGl U42ef8XZw4FiMK2DFXi4xu QwsyfvxU8qSYAgfkBpZFql jCDyE6pkC3XgIEEaTxSgVs CyRYi4OIZxrH5lWy6wrPBn zS7vfWOfJQerUFV4qZXkRA WsPRJfTFSdSK26YTvDTHXp bmFtZSwgbWVkaWNhbCByZW NvcmQgbnVtYmVyIGFuZCBc vPmrFmFhAXf9D2PwdNocJO Ixc1dsky6gkTniiGCre6Yu adTxotvkURFkYPHky38juY U1loEsRtUueKu1jWJmQIL9 RS1avJlqxrkmlGFhHGc8xT KnREPeCwHakHsnh5UkZGip LjQgeCAyLjEgeCAwLjQgY2 3zwT4gRObhwkOzCUOhHO3j HYOfJAYsyPPydP7pinTlmn EcbAQfqNF1VRUmyI8voJ07 kbCkpnDMEX4bfZTyJP5QNJ BhciANClxjZjBcZnMyMiAN ClxwbGFpblxlcGljTmVzdE GsFqKdgKybvA99RJIuiJNw CMS6RY8uCAVxguklQPXoLA OfMSR2LPhltS32tXHlRQWp KFWxsMWyaE6Zb8cdVXZjgU HdYKC5CFibeCSrTSGaOHMu UVhxCoJqX1DPJCKxRlPqDS X1DKLqFQr5FWv1BF0VYkHe LCYsULFbZiD1QCNfJXw6BP pdBG4HTNG1Sko7HWT7VCZ4 NTMyOCBcXHQgMiBcXGYgQX IbCSsoZHyqePQsXK2hhGgs xlW7ETLxRChwIPVtUPWcbN faSCJGd3idwsBvCYIhD7i4 K9NoF2QnHXmcBz0utMWhPE 6IROGacMBYTIV4IO4jUFTG ClxsdHJwYXJcbGluMFxyaW 9vXR2NJXy7fiQjJNZoQBrq wzMmITXoV9FrtaRgQNeoLV Ukrf3jsUvbMKngHaDnBYVl e7v4cVN0fSJnmDV0iZFzmC ojPwRxEW9ezLLzEG1yMKuv IWwqlyXxh1EwKB80aQXzht DeawHzBRH8JqMbNVjcKMUm c1g4tMviG59bq02vpoadsZ PhOLHlKG5daB3nYrSxjgZd H52ya4fywQQxd1KbmKCqyC lwbGUgdGFuLXBpbmssIHBl AKWjC1VqLXPmMBQgr7F1ZG Shj1F3IOPeFf83INctQq5k BUrpYG54AJPjCVntTPQpF9 AwN3O5LKgaEYMNzKQke0Yh D5lqYJ4ldRSbs8HkcXn5oY NdXNloQUHtrZ4mfX4xRgRk XHBhciANClxwYXIgDQpcY2 FwYSAqIvJcOVdbbXdggO7s OYFzL90nb1YSk8XuFAMcJA esw0sozSdzm9FjrQWhTNmx FTUyeKPwLEqhpU6wDvCjk3 cogIy3DGqeujM4NLLguy4A GnzuWlckgKjgf5EmmJJsQL diUADwVMOyLVmqOISgHZ2L SjUiBJhRWeesOFjiWgG0HN q8YKBKNdOiDuZsXgsrHRX0 RgEaANl8UJb1XWuJOdY5IO Y8AYVyWyXhYAYsKaeyUUw4 IDIgXFxmIEFyaWFsIFxcZm geHTppJ30aDgWvWyicwTSo qmRHWgKXl2c5kQtyU99qt2 0vULAIxsCjw6LzcwQbGkui UPXnNNfhSMSyN21uf2XYa3 MyAS8JUVu4qnHbnseqgL6g LFSrhdBpANrmwLMaV9fnW3 QcNTDpMlSfMrNsMTz3OHGi oR7wYd9aoBHynP9ooLMkNV qjDIE9dZXyZJTqZQGhCEOl DF33SNfBRMStqwZsOPcptS VkaWNhbCByZWNvcmQgbnVt YmVyIGFuZCBcdTgyMjAgXC n9H1VomRpqARFgg3qmbz70 fkZhz5FvcxIlEDPiyOXvLV 4yUnhfrP97ATReNJGzQYJq cSrnIHwtDwDgunSjI38lm1 slxDXlc2QaiDHhlSvqoLLx dGFuLXBpbmssIHBlZHVuY3 CnWPElYGAbd5A5YMFad6E1 CRPeZc1fRPmtAm0oKAntOB 82JVCjPBrdVLPtF3DiM7L2 DOaeRSCIeTWvx4HpL2hiVD 7oaYMme9RyiUe5nJLzMEps HDPpnZ2igQ8aMKDkSCWlST PghmABUygfNSYdREwNp6Ya vMlbKIPmG2t6v09cQ9tcuP FqEPDHWWZ5bPEwebHvyXOt NI8QMZLrflVITvpjKwOrBl MyMiANClxwbGFpblxlcGlj RnBqnHUaWpBskYrctR79KL BpaWHeXDB6KT3iLTQubewa HSIhMWVwFDS6NEratY70uV CkYGWyNMBpmNZptL0CDDPg JSU3PFdmwV62bFYrXI5HSZ GjOBB5NTQsmJSuKDC5DQ7d fQ0KfQ== MICROSCOPIC DESCRIPTION x4bxyDGwCWQclJH9PzLgJX (test code = 3371) Uup2esi9AcxMClwEVgWMxw wOOladTfvj50cQW3vL01ER 5vEGCvLrQ3HNHtdwL6Bfk2 DVGaOXWjjBMaH205a8pvp5 undxYeuZG5jTqxRRLflwhl YaJ7CFudBWEpwjvoWWh8HL xeBLAdbBI1BTCibOHxR8Iq WUXqUR6ejir7FOB1GUtiAH AkAyP3PZKjuYGsGPFpwTca CUync332IAQ9QfEaVHNdim KfePnqlN7oHvOvDCGOUMLj w3WmOGGyJQOjpwplNBIzHB Bhcn0= [facility]issue [id number] 09:50:09 Test Item Value Reference Range Interpretation Comments Case Report (test code Surgical Pathology = 104) Report Case: [id number] Authorizing Provider: Beronica Mayopremazaida Collected: 07/03/2021 03:04 PM MD Brian Ordering Location: [address] Received: 07/06/2021 09:08 AM Service Pathologist: [...] clip x 1 DIAGNOSIS (test code = o0vvmYJgPUWgl1bdBHShaQ 3220) FuZzEwMzNcZnRuYmpcdWMx IHtccnRmMVxlcGljOTYwMV jhrlItDZSojAWvX6Abxccj HWzkPK9oSA8ovGlcbEXgfF SxDHMxHiIis0vab393lNJr a3rsJYNZpaezlUa5rEaxW4 1kr4J2CgvsA16gxCDtCFW5 MBTjRIQrqIMhNNVjAJW1PO RawBAoN6shISJvJJ8saprc HNgeQDsyDPWwyNP8VVBwdH TkJ8RkMSHaOLhcOYBmuxk5 ZeSpEn4ldYGgmPhpOTzjFO HgLPCoZVjoECLtFfGvQV0p G71QW94gHUEDP0GBGFDEHT sNTQVQZK5BQ5e8CSHlouBo LSAgVFVCVUxBUiBBREVOT0 3RHOAhgjpkRKTmDq0fL48F A18uUDRUY5iEA5QAI4VINY vLZbXVI7jTDTnvMarHDVCH QnqkBBTzLJ6pZU8OXOVYSL nOMUPEPNiUYT0NNfYEZfFV QVDRGBIRPQUEZY0UGWPvwU FyICAtICBORUdBVElWRSBG S3UfHXiDJT0WEsLBNJNIVG EVTIWQFTByR7AxLYTNJAjR UG9RKOecKXPnpINaQMPcIV PXNN8FEGXYPAdNUX1GG5GY RzWCPwbmUE2ECSRgAWWZG5 BTWTpccGFyICAtICBNVUxU SVBMRSBGUkFHTUVOVFMgT0 EoDLYWRItTNcLCODKPF00W XHBhciAgLSAgTkVHQVRJVk RuLq2VGEeXS2rvY1WUOOLa AZyYXDxRA3iBLH3WDD9SJU tROiBCU0hvzFUgVMWexyUu iBAsGPLnJVGWTB3JPOIVMn RHM4OXKiKNXFFWKSjUAGOF DD2WU0p9HNJnsoHeYHWhYY SCAMoRMYJyLyKMI65UNhYY TC8ARPVGMzNKIWHsVNYJBw 4STIwjEPInMX9cTW2VA8SL SVZFIEZPUiBISUdILUdSQU PLNJJBT2AZNIYLALDBHbTA PZdCX11QDyGEQOXmiu11CZ E6VxFfh8D6BXM5OMAaPJHu h6tdHZGnoDDcYfBpVnMoRo GeZvihwZSdODJhBySyg9pp c436xQMhn4fsIWNuQbE3hO FkWIAoqRTpP568SMJtANbq w3fae3KmRIDlbZFbi4S9II LBzjsvpGy9hDzuU17ly3N6 KeijN8abBDDqGXDvH2DlUT 6eJZYqMnz3UWJ2CPS1UWTv BRCzK0EvBD5wZEJpeDRgVU s2p5jfuKjrVNToMPM9o1yh CPdmtqKlHQ5pzw1fpZf6w8 xjczEgRGVmYXVsdCBQYXJh W8FuvSfmMq5dnMr6eYqiPj kbEQT0Hhb7SD6uko29dky0 sKlsSEYazqtrRoI4VZhvET NmbygwMYb0ABsrNQGrhDC6 JNQruQIdH6MdLPXjLF3ysf k5SKB0MJdrFMYnWnI5IJGm aGRrAPQfkPbzMIxtl973NI D8DyQvTJ7bT5Tii3E7hV7i aXRcZGVmdGFiNzIwXGZvcm 6qcNDvVEyab2BxHYL9juK0 mRGdwWXhKKUzTvK0QJrrVO 7goe75KTTaGLH7mz7ubMAx ePfdhwBmyVNtCRquJ2UiZG Uuw049UQFnF1XpQXFxa6B8 zhQjZwLxRZZvgLK9poS1KZ HjFE6ftuhcf5hzKIhhOUms PNOgguN0guV6AKLxgNZsC4 ClfP4hKDQxFS2ywrgzs7wg JXA5ZDvsWYNqLEG3VqTmWC Meq2Kejmv1WoJho6KwwOVy VVztX60gm241EMHylqNbQ3 xwbGFpblxwbGFpblxmMFxm dkD8FBDaGTergvrqWBUeRP voL1xaIkRtMAPmiWlmAIcd a1MuMJUtWQMcIyPaxODjRQ MkPoi7PWOkgSJgESLfQnHu E3rqfbesJaQLXAEuo2vuV6 ogbPNRfLPtX7ZsZGuioqGv TXnjRYhwEYIaEEO2LE5pBQ WpXEQgrp58 CPT Code(s) (test code f7mnsTOlSLInsRS3IaCtGW = 0806) Jib7zxc9PsrDRzySTsMXqg eOJzdzDroy24vNN6wM98VD 5tFBJtHsI8PMAkzvD9Xvf0 JCKxUFTejYSsQ312n2opv6 vrelPnwAJ0qRyeARLdmmbg BtH4LUvdTGVsbdcmLLu1QS kuAQXtlRI1KTSnpTRzD4Jw IDHoVK2dxbb3NZV1AHwrDT ZcEkP5UXHskGFqXRDrrFja LLvxb450FRI8EoAmXJSzdu XrmSfplK6eYgDeKBA7KOEo ZUd4MVAztc5= CLINICAL HISTORY (test j1qcvYNyTRApcQE7VgLoIC code = 3356) Xxb4aud0MsnFEyhHJiUOgk hJOpfoMwjh96jDE3qA77VP 4wLXIhVpA3ZSUzwcD8Twl6 QNZnINKywTMcN085j7ubk0 ahtlBsjPU1RBBqWNQjL0Ei ZQ7dQJCrzOVxK03krMFvLC Y6NPPuPELseNCfCQUoAAV2 UGOurCXdN6btLMGxKH3lvc lgLVjnVEmiOQHleTP7LJVe eHHlS9WfLKTjLHicTAKjqg p2YwSbKh5xxVTmjLunFJxw YXJkXHJpMVxwbGFpblxmcz SzVFLjDITQys8hKFSrAdwb mCIqO3gsTK8chGehBZD0bu PrBCOoYqofWOWoch0xOOKk IxswnKXeD4jcJP6dwEipHM O3oSKpSHEalu6= GROSS DESCRIPTION (test k8apbUQnHIRnjBCPDDFtJj code = [id number]) qihlZuYKOyrJFoX8Wbhxsu MEaqVD8eJF2afUkitKQvtJ LwBU3VSWWpOlVjXHNdmSAu rmPiMtDyZIQzzUCbpJD4HH XaIK9ucaqzYOooDHqrKZFz lxY9EHFtlZAbZ0HkULXeVG 6hlncjZDZ1BHbmgC4uuiQX NbspQp8zcWZopBwgTyNfWe NoYXJzZXQwXGZuaWwgQXJp MRm0vO3FJqgbH00fg3L8Lw p8HSClJBMmX2IhBW5dRAZw vZTeV97RKbhrHRA5DKRKYk iwYQRhPS8Zk7pmTHGheNBp EOS6NXqujGBxAPBnAQKbFV f4IAMdWKsbfEKoJF9xmVbk VruizFgox5OnjNPzFDsbZI JcJILuEPmnJNVjWC3PXyCz SLbTKiivDXonPzB7BRv7DL GVCuIoTmYwLwkiEUP2COhk PRr4RFr3ETaNCtC8BUY6QC YhRKovXVRwYmtlWVd7INPn XFxmIEFyaWFsIFxcZmwgXF guU65qrCwkuW7uNU6dVV7y cYDjMTGxqH2aQJ7jB7HgoI 0uXHBhciANClxlcGljTmVz dERvYzEgDQpcbHRycGFyXG xpbjBccmluMCANClxsdHJj aFxjZjFcZnMyMCBSZWNlaX UnQFIyexKln3VrDVucoaDz YWJlbGVkIHdpdGggdGhlIH XgdRgmgtGzG1R5laZjWB7b PKDvPTZhI0RwFBDuH97tBK TzpE8eEZOlCI8hYZs2LUIw TCIvCjmnyG7waOLrGHTyoZ 3gMROkF8PuTbIkj73pkHP0 ezCkFtWwWFFvls9bkG0yVE Jqlx7mGHGyk2S6OFRxe9O2 IUQnNN29ZPhjMC5eLOmbTY 4xIGNtLCAwLjYgeCAwLjMg dLEhVaTdO55fOdDqDBtyRP JyDIZiiTTiAHuqGPP6Ej0p vTNlJJNfgcP5l2FqWTsjQZ PiTomaVCEeMIgnqBGaDD1B OWNjOBsdqtWwNR9WCJQjOF ylGEAitZPXTLH5FQ7pDPcc ePZzfilhNLOvX4MaF3Cfrm JkqGFtZGQuauYcu5nsWCS0 XHNsbXVsdDBcZnMxNlxwYX N8RYz8KIylHQUlP0UyZ4Ud QBwcPXM2NSJhYbVmOHNnSK FGDzIpEaAeEcT8Tyk4NvDk YFb2XGnvS0QASALmQSA4CE A5RQM6RnT9SRj4XUJFYq6q JYKjSVK0JxD9FNZ3YfC2FB xcdCAyIFxcZiBBcmlhbCBc HDQpSIzswvS3FJNyJUBlmN ljxE2oYu3nUY7moKLsDXJf oQ3dCT9uWudnpKGoXMEoKH 1qxF6aMnfoWUQjTMppBGWo X45tr9CPj4DzOF2JLTr9yv VsgwcwpU0sKAXobdOvRAxq tSAgI1lnX3HiEYXhMiQbBb HkGJp3ZKUmqB2xZh4asNDx nA4opJWkBEzsOKV3eOTwXX QvCCDwCINaOJ58ZZbYUSDh bmFtZSwgbWVkaWNhbCByZW NvcmQgbnVtYmVyIGFuZCBc xMohUaJfJNl5W9ZgnAzbXL Qac9kusi0fvVggxNAoj5Ck yuTrexqbAEOmWSUmk56lqR N0asOqPsZdzAw3gADiMTZ5 DF0qsTzdyoxfsDKkIJj3gZ IiJNPiSoDvfVuau7PgNNgg LjQgeCAyLjEgeCAwLjQgY2 6bgW8vXVyiouCxWQHpDN7q QVGqEMGcySEzlG6sgaHezs HpjZTwmEY0CYXabM4oeX58 isHfblHJZF8bdQDgAN3KUS BhciANClxjZjBcZnMyMiAN ClxwbGFpblxlcGljTmVzdE CcFyQynTfhyB18VOFgoPXm BUX0AW5jNPZaqyeeIMQuPF UdLOJ6VVnduP29lGZiSHYy YNMtuIGxfP3De4neLFRqjN JfFMW6CTjwwQUzCZDbJUSd WOtzWoPrI5BRBIUwWzOjQY B2CJSqDCv3NBs3YB0USuKb HJXgYIPhQdM9MDKsUOn7HD sdQP2HFZC7Uil4VMM9XUX5 NTMyOCBcXHQgMiBcXGYgQX SrFJtzHIotfCBwWR3xgWms cuL8ANOfBTzuVTDxPLBniF gcWZYVj3vxpoEeKEOgW8e7 S3QzR8IsUZqkJm5osYNjPI 9DMVUtxKONYCE6XY5nYIBQ ClxsdHJwYXJcbGluMFxyaW 7lXP8TFTk2bbEhIMLvXTdm qqGwDPOpE4RxxwGuBUgsZX Orkr8btImfBSjrKzRtCSKg t9n7kLT0eZGugHK8fSOxfD lsDoGuZU5uyTUfCI6gAKzi FArdusLmf6NxJA34fITsmt BnitJjLVL6SsIsYWqnSYLu b4w9oMhyR76tp48zbztnmA AcUNVuMG6hdF8zNiLpodQy S06ig6cjlRIpm2VdiPPmfF lwbGUgdGFuLXBpbmssIHBl SLWcP0HaIDLjWTShc7G0GE Ofl7Y7TPLuXk48GBwrUf6d SRyoWY97HHDcWIxjFVSsU3 AzI7W0FBmcIKKOsCHjq6Pb I3isPS7foORbo1PbaLp7xA XeSVseMJFpjU8vtF3nPyCu XHBhciANClxwYXIgDQpcY2 KnJXXwEtJnNSnsgWqulU4o GSUtG78tt5CDs1SnXMHwMM xdc0vefSqiz2IeoZJxVLva PUYqcXVtJBlyqT9gHuXwz2 dghGy9ULaxvdK8RXWkjq6W CfimIyvevWuhm2BliNTiKV poPPLuYHUsVOfpBTOwSM7F QrPhCYhHFltfPSibIhY0UE b3QABOJvWrTzMuCzlgDGD4 CvLdLQw3YEn6VPdPWqJ7OY Q8TVJkZhOrYBKlLerwDHp3 IDIgXFxmIEFyaWFsIFxcZm ijXEcdD33nEaXeLvkzjFTn lwQCDjTFw2t7eUavW36tl6 8zHIFTqcLyy2RckmUaZmkl VWYmVXxcLLRxO68zs6MTf8 QxER0CGYr6dbAiuhxkuP7o TVXiogTeVOfalBYbE3fwY4 HuFRYeBiXzPaQzLIj1ZYMk zV0wEy8yvJFryC3rmXUiNL uuLYW9nLEoRTGmTRNiDDQr QI16AIhAXIVkmxQdWCwowE VkaWNhbCByZWNvcmQgbnVt YmVyIGFuZCBcdTgyMjAgXC u3W1GhzKlwSDRis2ynln75 tsLno1BupsQrABRshUFtJW 4dExqrxG38FDCdOGZzNFVy zAqcDPbeLyJfitPtS32jh7 dqrKXax6ZlqBIejOnadPFu dGFuLXBpbmssIHBlZHVuY3 JfIHIzUXBbp7B9KFXry2J6 XQGcJs1gYJwwUm9zYDgyIS 60MJCsJSgcRJIbV7FmI7V1 BInsOVGVhQAmm7XoB1xdVP 5lnEZkg5MdiWt5gAPsDZmv QSPdrD3sqC9lYCXgFMIhZN OjohYAMaioIBGcRKsJv9Rr rMfvDKCuI1z8j81jD6viaW QlXSZSVRJ3oXHekaDccRCj EC8ILDOypwDUAcxnAvHeRx MyMiANClxwbGFpblxlcGlj DgTnzTWrPbQbzCwmfA98OA JfiKTxGKW9TU9wAFBqryjl ZZQiMBWnCGS8PLgnmZ48aG OdDETpLTTzjRLhpE1JAFDg FXG7FKnhcL49mNQvHG7TUG NcVIJ5HHSylVZvQDD1DH3l fQ0KfQ== MICROSCOPIC DESCRIPTION h0zpnPGqUAMntNL4MiPmBO (test code = 3371) Fxy9pgr7MszKZkjAZeIYwu mWZktkXjzf16xSP9dT57KJ 0tQDNeCwU7WUQmemN2Urr8 EKUxRVQlcHWuI827x9zgh6 cicgWxgAH5cIgoFVYxddjs YbK5ZUygEHLrgamsEEb0WF bsOXNxxAT0FBZprQItE9Pl GBTlYS0teeh5JWZ7JJxmJB EySuH6RLNzfATcUQLtjCgl ATlav257GQC8AcHqUDUrdg OefBxktY4hRyPaMNOSESXb z7VyCRKpEIJkidcrGVUfTH Bhcn0= [facility] [id number] 09:50:09 Test Item Value Reference Range Interpretation Comments Case Report (test code Surgical Pathology = 104) Report Case: [id number] Authorizing Provider: Angela Loco Collected: 07/03/2021 03:04 PM MD Brian Ordering Location: [address] Received: 07/06/2021 09:08 AM Service Pathologist: [...] clip x 1 DIAGNOSIS (test code = [id number] 3220) FuZzEwMzNcZnRuYmpcdWMx IHtccnRmMVxlcGljOTYwMV hgyrSaTXQcgMNzQ4Pwfvuf AHefZC6nUW2jrXwvsUEljR WzPSJlKqMdw3jce388sQDe y4gbPUPLcnzykDl1gZukK8 0bv0B8VhawS26bnJBlVMK1 JUFkLOHizCTzRSEjZIO6UU KlmPUmP1anNQSbTV6puwoo QAutUTibDABrzJA8GRSaaW SoN3TsBTWwOCrvZOUswtm9 TjTsXs9knPYffLgpAOfiHH FgWAAkFBodHGWnHgNbWF1c L60II84yWOYIN9PYRHOFQB wHVLHAVV8QY4s4YUOfkkJv LSAgVFVCVUxBUiBBREVOT0 4DKKGauzzzFHEhYa3sZ89T T56sSTTQA6sXE0WBQ2GCMZ mXVnSHX8dHVDonVcwQUHNP OadtJBQxNY0tDT4ASEOSIY wGRKLPMAcNTV5UBeIXKaZO FDEFWIGUFRAAQY8BBSUuxZ FyICAtICBORUdBVElWRSBG K5KyPBsVLX7GPsZHDNDMAH RXGKPXNIJfV6IaZEMABZwB MF6LUNabWXXsqWCeXAXpDR OSAD4QHNWAZMpAWO2LZ4RY WvMTWuteJN4VWTHsDANDX1 BTWTpccGFyICAtICBNVUxU SVBMRSBGUkFHTUVOVFMgT0 YvELKSIEqWUlOYAUATM41P XHBhciAgLSAgTkVHQVRJVk GdZf9OKTtPY1skS2DNELSq YAsZBIrNJ3rFMX1CKN1VHO nTOjENJ1ygvZIeTDLgybOh iDHzXVXlHMBVCR8EUKBJFa WKR8OFTuPSEALQJMxXQFGM JP4JK1r0GVPyvjChPNGuXP URCKgJDTCfIfRZU46GGgEF JO1XPBESHdLFBFDzFQOPWe 4YLYdpRMCnTC3lJZ7DY2FH SVZFIEZPUiBISUdILUdSQU SITXNKD3OIKGJENSSVJaUC YQrFN92RVmSLLAXdbt52QA M7CeKhh9K5GDM9JUKeQKIe c1raNOIuuXSpFkYuLvJsAx CjGlxwgWYwMAAuKvMtm0lo t586rLKlv5swYEUePyD5bB RyNARdhVOoX443FQAoKUmz k2ckm5AtCPOxtLNqd6H1UG YDtutdiIk8mPpcZ66tx2V3 AsveF8oyTMFcWCIqB6RqHK 1jXSAlPkg9RCN3CED8ODMu UBOeU6WwFY0oLWEqlUVkMW y4m1sluEfzYJNrMNN2b2mz NDtzhtFuIG2ayr7syNx8u7 xjczEgRGVmYXVsdCBQYXJh F7OxsNgcOb1qrQq2uBavKi pcWGF5Ape9QI3aql36ils9 oLhsHLCzsiajWmH6JStlQV CdyrjlCIn6CVwqUPTxwUT5 LWStjJJcY8WqZCKkKT6tol n9XPQ5XQqmLEVaIuC3KYQz jISkANUltEdbDEkgk126UC H1WsVhSS8lJ9Lgk0T8fK3s aXRcZGVmdGFiNzIwXGZvcm 6uhGTcKBmgc9EuJNK9fnV0 lSMzpJPtGTKoKfB4GByeKF 5lnx28DAPwDWM5br1ehJHi hEkateUmzXZhKPucL5NkMF Rvd685SICgT9YeFYXyj6G8 veGbQuMdUNGllUI2mjR2US GbFQ2vvuucc7pwFBqmAGmd KXUyotT6kvL9XFTuzWUzA2 LwsD7jCDKpDJ4yzdmee9gg THH0HUaxSZWaGBI2ElZdZL Rtm8Aedko4UmGly8CtxCTy XMitM04ih955OKOzdxOhE1 xwbGFpblxwbGFpblxmMFxm dcG7GTDeHEmgosowTFUcUU drT9uqNpKmBEXibPaoTWis p4FkPANqUKKlVwYsbNOcAY KpKvp8NAAcmZYbDKLtIwJa R2nsaisxAhOKUAXlu6mhS2 ceyFECmGQhV3QtVCsxlcBm XAevUEmgKIObVVZ5WU3aMU PpAOZmtr96 CPT Code(s) (test code c2eovOGdIQEusQL1ZvVnOI = 2863) Dgy0ymb6DykOYlcFEcHLyo cZSykfUgcy59fVM1jA87BQ 2cOWAyGzV1FGTzmpK1Okq6 FZPxMWAhqVGsV026i2tbq9 hqqbAcrFQ2sCjmYEFwcfst EsT5PUsoOVPipfzwVGa1YL svMPLmxRS7PTVguTMjB7Ya GDYcJE0doqd3VLQ7MMlmKF AgVdW3PTLlzGGzOMMrmPuv FJpvq175PDM0OaKlEKWghe RbnBywqG2qYmLjSYC0JKVi SOp1RJNddj9= CLINICAL HISTORY (test q1eveOJyWRQwiGS5IvSgPO code = 3356) Ckx5nva2LqkFAjmQEaMGkw cFNswkXavq56bMH1vX56MB 7nJXUeTqW5UQDtcsA9Wmz2 IRTnWIOixYAaR876d2itm7 ycibEtgMA8NRSjIBFoP0Vd AY0rSVRtwQIlC64gsTGbIC W6KNQxYPOlrHLtLMUpMXZ9 QFSezFQzM1zhGYYtWP2gab cwTWnlIBrxETHfqWE9ETYb aKSzJ9VyACQuLSyuYEMoyr x1AnZxEj2acCMfkAmlYNbr YXJkXHJpMVxwbGFpblxmcz CuYWQqKPHEom4vOBKhPdwq dKIzE3xnUQ8sqEubEQR5fp NiEBXtLzpoULMwdt8bYRMy CcjdiAPkK8eiMR5qnJxtAA I7uXPiGJKybc1= GROSS DESCRIPTION (test i9ylfGPdMNBxzYOFNUSkEj code = [id number]) uodxZvCANdkYEmQ0Chtyzb CRrhPS8iOA9tiLsoyRAjgY LzRC0DVFDsWrMnKRQmqHRw tkQiJnScELWquSHhfED4JS TiBF0fnnqrJMbiZMgmWPFp syS9FYTqpCFdP2CwIBGxHH 5alwyvUSE1THxhoW0odhHV IrlyPw9mfWExsEmeWxReCz NoYXJzZXQwXGZuaWwgQXJp BAb4zV2TCxypJ67ff0T1Du y5OURtZFBfJ0GhZU6lPFDb lWOcB20YJndhYCB7YLARBa nvRSLqEF1Gl9pjLWBquZFj MQP1EUhboLJjUCRgDVXwSS e7DYWvLFwkhKEoCR2jhMca SgxehVgpr7BqpTUhCGpfZH QmTWEsVEheSUVmEB6EHaAh VUaRJjsbPGurYfJ6HPx6SJ BPVqEmAoRlOagvUZK4WRsc LUq3TGz9UHxWSzD0VNS9UW IkBTzqOHEnLbqnIBd5LLWj XFxmIEFyaWFsIFxcZmwgXF daD08rhUgqgV2bFF4tDL0h cYLrJNEngO6sYA7oQ9RuiH 0uXHBhciANClxlcGljTmVz dERvYzEgDQpcbHRycGFyXG xpbjBccmluMCANClxsdHJj aFxjZjFcZnMyMCBSZWNlaX SrVYHhazQep1GjWLydjyYw YWJlbGVkIHdpdGggdGhlIH LuyKfokbDgV4F7puKpYT8j TAIpFVNjD2WaYDIcP14kJO QtuS2mSCVaLZ6yFQw1WHPr LWEaHueurR2peWUzERGguT 3nNIZuJ0IrUxMfb69thYK0 dxQgFjSqREIata8pmC4cWB Greb6dVWAtl4B3OBOge0Q1 WTDgFJ48IUtbNN8cLLazPE 4xIGNtLCAwLjYgeCAwLjMg kWXcLnBkD95iJyRzYRytGU YeSLVrqSDaPFfnVDO0Ki6h wMEaECPibtX6h7AkJVdxQM OiFyevSIBpTNnpsXRkEQ0R OVZrJPmfzlYvYM2NXPKlVI tbGFLetZEZFLW5JO8aBJsy gKMucpelGKQlJ6KdC7Qnmn YbkQKfUAZveaDnw5ntADU6 XHNsbXVsdDBcZnMxNlxwYX T9SFb6QPqvANHnB0AmM0At FTkuNNW5ZJNvYhZuKHYmIS DTSbSuPxHtDsB8Fqb5AwQr ZJf8BUuvY9UOQDJeTAE7VW S3EGE8ClV2ABv4CORLRm4m XUPkMII8XgS1MTL7KiG3BB xcdCAyIFxcZiBBcmlhbCBc ZMCuUKqkpsR8ODAzDNYuqB enaK4ySx2lQE5dbWGkMNHh lW5fJP4rYbyjkBSfRAUhKJ 4cyJ1fHpelEJRfCOrhOOIa S02nq6ZIg2XvNS2FNLn8lz IhduoyqY0hSYMjpzJlEMbs fEKqU3ylJ8JcECHvSwWpNr SgEBm8NQSrpF0zIo7biKAn nG3uvCSgWSfbGUC6qHXaSO QnZKZbKRSjXC71YQpWQXWj bmFtZSwgbWVkaWNhbCByZW NvcmQgbnVtYmVyIGFuZCBc bRlwJzOnKMf2V7ButNecAZ Gmq7umbk0slUoyxSPbb8Vz yrXgzrbzGVGlCBGiy03zqE F7mwUyCzHgsOt9yRLlSBU2 CQ0usWioudcpwDZmAUv4iS UaWMYoCwGugZfky1RfXLfo LjQgeCAyLjEgeCAwLjQgY2 0alA1xKExrkvTsLFHfXT7o JKWnBFEphBPkrY1greWcyc ZnnZFmkLF7WDFdkW5izR34 sqCzszSHEM7oaHOtBT1TWB BhciANClxjZjBcZnMyMiAN ClxwbGFpblxlcGljTmVzdE BbKaMneCamqT37TZAfrDQu DWF1PJ1pKNTcnxpzXGVyWO ZmKZD4ESohiH75iIJtCHBi VJDlmTIkyT2Uh1yhEEIrrC SyMJL6UPdcdUXjOXKkBGDb GSffEfCzH6OEJPPaCqEgMS N7BHQsYIk8DIb8IV5NEfOn MHNiIURlUvH8FXQnJMf9GC msYG0KNIS0Fzj0WSO7AZL7 NTMyOCBcXHQgMiBcXGYgQX XjLJvvZWdkfMEqBH3rjQgs qqF8IHHuTJmfKQBlIVWbbC mbQPUOb0yehzJdGOJxB8f9 C2ZeW9GcLJayHc3hiXVpRQ 7AQPSzkZBCEDX5VR2tCCEM ClxsdHJwYXJcbGluMFxyaW 7nMM1OMTm6nyQaYOWrHJik inWvRCAgP3FyysJbQQqeFR Pijf0iiMogCPgnWeKnPEUr y0b9rCR9oHFcrWW6rRFxqN bzGbUdXE6tmCXqGW8eNWkn LPqawbRiy5PdFJ41xTAqpr LflhHoKWM3EqIbRXsjLBCd e7q0mQymT03ql70yltnybF MzYVZoRA6ghA3zUhBsiiFe O73oj4anvSHwx3FchXElnM lwbGUgdGFuLXBpbmssIHBl CFAjG8NpHHMhVVIpt2B9IQ Emt9Q6CGRhQq63RSnaRe8q ALjxZS88AGKpNRjlPGXwC4 KaM7P5VViqWTSVtCRlg9Ai D2bnHE9nxYIvv0WpkMe6iH DzQXezEHKrnQ5isJ1rTnSv XHBhciANClxwYXIgDQpcY2 DgCWEfYzAzGYpavZxhzV7g FKSuE69ty1WXz2XvKZOyJJ lvb6hcuRqlc8ZxaOUxPLdw EMKlpQDrPJachH2nUxAun9 zqlLc3GQmbwpY1ZRMfkx9N DiynUvtsoVeeb4AqdGLhKD kxLJWnSAGxILpuVEVsWT6S FqAeJCsIHqupQOxtEzG0SV p3ODHTNtEcLbZxKedaRUW7 YqEiVOp2RTi4WUsJSbV0JQ M4SDPeQhKgMCRpRwmdITi1 IDIgXFxmIEFyaWFsIFxcZm coLIerL32iDpMuToqbqZGv gfXTWbFQh6g9yYrfT72hi5 3uYLNIseQas3NpuyThRvxf DGRkEZvoXPZzB53ta6DTf5 AsVI0RARv4fwCiiruzyD7e WDFunpEzKYwbqAXtL6xqG2 EcHNIzDdLhSnMeSNu3DSIs kZ4tXw0pnJHapO1qsDQvBO pzETY4tOFkNQXuSDBtJJJp EZ92EYlQQXGptqDvYCrerT VkaWNhbCByZWNvcmQgbnVt YmVyIGFuZCBcdTgyMjAgXC u8F2DbxFuiWFPsq9prwh00 xmDah5CwfhXnZMAjvEXgGF 2mEyazdO60DZLwJANgJUBw gOvbQNrrDsNpaqEyV05im8 qhaQDbo0ZgkGVnmGsprGQm dGFuLXBpbmssIHBlZHVuY3 RbYJSqDSGra9S6TVRkb1U9 OLQtHt3jGDruAj3oIRvsCF 99VRCdOGvvTRHtS4BnO7B8 KVxhOCXXkHOso2HfW5vxNI 6jqGRfw5KfaOy5lAMjVBcg AGPodJ2giE0sDQVlKUZsDN IskyOHBrkhXSEuBRiVh1Ia wBsuJQPeJ2c4r36cZ3bahA MwAONKAEP3dVOtvuWmhSNz HM7RBDEfdzVWJczgNsZqFj MyMiANClxwbGFpblxlcGlj UqAjbBZgEaYszQkdbC61AL SsrTGrICW7AZ2lKOXnxejd ZWWzRIAkLPU0NYnybB76nX LoBOUcRASbqAAfaS6SFGQa VMP6ENgskR50uHPcYB1CAW RgKLK6TIZqlJKeSBR2XY0k fQ0KfQ== MICROSCOPIC DESCRIPTION t5nidAZuICDerUV8JsAgRS (test code = 3371) Nxy5sbz1KwoQDmaKJzETsc zGKyjwOmlq23sXC0wZ74WZ 9eQJCgZhZ8WRTolhT0Zjr1 XFUoGVIwhGIjW050l4viy3 wcwoMcsHS6hNymPZZdafdl GhS2MMtsOYYastcwPPv3AN fcQAFgaEB0JEZjcRPeY2Hr GGPdDV3vpvg2IIB6PGudQY RoQjR4YUKccHOhKBSatWgb RWtnd723PSN2VqXvZLIuqb YapRscgX8oMxBkUHVBTXOh k7EsIZNaFDFqfzjxYOCzAT Bhcn0= [facility] [id number] 09:50:09Surgical Pathology Report Case: [id number] Authorizing Provider: Angela Loco Collected: 07/03/2021 03:04 PM MD Brian Ordering Location: [address] Received: 07/06/2021 09:08 AM Service Pathologist: [...] OR MALIGNANCY Signing Pathologist Direct Phone Line: [phone] signed by Michelle Fernández MD on 07/07/2021 at 9:50 [id number] deficiency anemia, unspecified iron deficiency anemia type [...] patient's name, medical record number and "polyp, colon-rightascending" and consists of multiple robert-pink, irregular soft [...] patient's name, medical record number and "polyp, fcqnz-nzjycnncsv-6 taken by hot snare, clip x1" and consists of multiple robert- pink, pedunculated soft tissue (6.0 x 2.2 x 0.4 cm in aggregate). The specimen is submitted in toto in D1-D3.GRICELDA Andrew studentPerformed.POC- Glucose [id number] 08:45:23 Test Item Value Reference Range Interpretation Comments POC-Glucose Meter (test 92 mg/dL 70-110 : TE STED AT [facility] code = 1538) [address] [facility], 770 30: Bird Raiser/Techni kelle ID = [id number] for EDMUNDO BARRAGAN Lab Interpretation (test Normal code = 09355-1) [facility] [id number] 08:45:23 Test Item Value Reference Range Interpretation Comments POC-Glucose Meter (test 92 mg/dL 70-110 : TE STED AT [facility] code = 1538) [address] [place] [address], 770 30: Bird Raiser/Techni kelle ID = [id number] for ORPHEY, EDMUNDO Lab Interpretation (test Normal code = 29242-2) [facility] [id number] 08:45:23 Test Item Value Reference Range Interpretation Comments POC-Glucose Meter (test 92 mg/dL 70-110 : TE STED AT [facility] code = 1538) [address] [place] [address], 770 30: Bird Raiser/Techni kelle ID = [id number] for ORPHEY, EDMUNDO Lab Interpretation (test Normal code = 38360-5) [facility]-Glucose [id number] 08:45:23 Test Item Value Reference Range Interpretation Comments POC-Glucose Meter (test 92 mg/dL 70-110 : TE STED AT [facility] code = 1538) [address] [place] [address], 770 30: Bird Raiser/Techni kelle ID = [id number] for ORPHEY, EDMUNDO Lab Interpretation (test Normal code = 54093-2) [facility]-Glucose [id number] 08:45:23 Test Item Value Reference Range Interpretation Comments POC-Glucose Meter (test 92 mg/dL 70-110 : TE STED AT [facility] code = 1538) [address] [place] [address], 770 30: Bird Raiser/Techni kelle ID = [id number] for ORPHEY, EDMUNDO Lab Interpretation (test Normal code = 87987-5) [facility]-Glucose [id number] 08:45:23 Test Item Value Reference Range Interpretation Comments POC-Glucose Meter (test 92 mg/dL 70-110 : TE STED AT [facility] code = 1538) [address] [place] [address], 770 30: Bird Raiser/Techni kelle ID = [id number] for ORPHEY, EDMUNDO Lab Interpretation (test Normal code = 78776-8) [facility] [id number] 08:45:23 Test Item Value Reference Range Interpretation Comments POC-Glucose Meter (test 92 mg/dL 70-110 : TE STED AT [facility] code = 1538) [address] [facility], 770 30: Bird Raiser/Techni kelle ID = [id number] for ORPHEY, EDMUNDO Lab Interpretation (test Normal code = 19744-4) [facility] [id number] 08:45:23 Test Item Value Reference Range Interpretation Comments POC-Glucose Meter (test 92 mg/dL 70-110 : TE STED AT [facility] code = 1538) [address] [facility], 770 30: Bird Raiser/Techni kelle ID = [id number] for ORPHEY, EDMUNDO Lab Interpretation (test Normal code = 28811-7) [facility] [id number] 08:45:23 Test Item Value Reference Range Interpretation Comments POC-GLUCOSE METER 92 mg/dL 70-110 : TESTED A T [facility] 6720 (BEAKER) (test code = [facility], 1538) [address]: Bird Raiser/Techni kelle ID = [id number] for ORPH EY, EDMUNDO RAD, CHEST, 1 VIEW, NON [id number] 07:59:00Reason for exam:->post-opShould this be performed at the bedside?->Yes [facility] : 1955 Sex: FFINAL [...] Bayron [place] Verified Date/Time:07/04/2021 07:59:51 BASIC METABOLIC [id number] 06:24:45 Test Item Value Reference Range Interpretation [...] S NOT APPLICABLE FOR DIALYSIS PATIEN TS. Bird Raiser ID - [id number] 06:15:51 Test Item Value Reference Range Interpretation Comments MAGNESIUM (BEAKER) (test code = 1.9 mg/dL 1.6-2.6 627) Bird Raiser ID - [id number] 06:15:51 Test Item Value Reference Range Interpretation Comments PHOSPHORUS (BEAKER) (test code = 3.1 mg/dL 2.3-4.7 604) Bird Raiser ID - DBCBC (HEMOGRAM ONLY)2021-07-04 05:44:21 Test [...] Not Detected, (test code = Negative, See 10549-1) external report for linked test [facility]OV[facility]2 [facility] (test code = 92164-7) BRANDI (test code = Negative result for [...] of the Act. Fact Sheet for Healthcare Providers:https://www.RentPost/sites/default/f radha/product/documents/F act_Sheet_HC_Providers_L zdz_XQME-FsV-6.pdf Fact Sheet for Healthcare Patients:https://www.Wesabe/sites/default/fi les/product/documents/Fa ct_Sheet_Patients_Lyra_S ARS-CoV-2.pdf Performing Laboratory:[facility], [place] [address] [place], [place] [address]ARS-CoV2/RT-PCR (Asymptomatic ONLY)2021-07-04 00:21:04 Test Item Value Reference Range Interpretation Comments SARS-COV2/RT-PCR Negative Not Detected, (test code = Negative, See 60074-4) external report for linked test SARS-COV-2 [facility] PERFORMING LAB (test code = 75437-8) BRANDI (test code = Negative result for [...] of the Act. Fact Sheet for Healthcare Providers:https://www.YouAppi.YuMingle/sites/default/f radha/product/documents/F act_Sheet_HC_Providers_L ool_VRPZ-QzV-6.pdf Fact Sheet for Healthcare Patients:https://www.Wesabe/sites/default/fi les/product/documents/Fa ct_Sheet_Patients_Lyra_S ARS-CoV-2.pdf Performing Laboratory:[facility], [place] [address] [place], [place] [address]ARS-CoV2/RT-PCR (Asymptomatic ONLY)2021-07-04 00:21:04 Test Item Value Reference Range Interpretation Comments SARS-COV2/RT-PCR Negative Not Detected, (test code = Negative, See 40294-0) external report for linked test SARS-COV-2 [facility] PERFORMING LAB (test code = 91775-3) BRANDI (test code = Negative result for [...] of the Act. Fact Sheet for Healthcare Providers:https://www.RentPost/sites/default/f radha/product/documents/F act_Sheet_HC_Providers_L iye_RHIG-SgH-0.pdf Fact Sheet for Healthcare Patients:https://www.Wesabe/sites/default/fi les/product/documents/Fa ct_Sheet_Patients_Lyra_S ARS-CoV-2.pdf Performing Laboratory:[facility] [place] [address] [facility]2021-07-04 00:21:04 Test Item Value Reference Range Interpretation Comments SARS-COV2/RT-PCR Negative Not Detected, (test code = Negative, See 17748-2) external report for linked test SARS-COV-2 [facility] PERFORMING LAB (test code = 12991-3) BRANDI (test code = Negative result for [...] of the Act. Fact Sheet for Healthcare Providers:https://www.KeyNeurotek Pharmaceuticalsl.YuMingle/sites/default/f radha/product/documents/F act_Sheet_HC_Providers_L inb_EDGX-LdD-8.pdf Fact Sheet for Healthcare Patients:https://www.[employer].YuMingle/sites/default/fi les/product/documents/Fa ct_Sheet_Patients_Lyra_S ARS-CoV-2.pdf Performing Laboratory:[facility] [place] [address] [facility] (Asymptomatic ONLY)2021-07-04 00:21:04 Test Item Value Reference Range Interpretation Comments SARS-COV2/RT-PCR Negative Not Detected, (test code = Negative, See 95431-1) external report for linked test SARS-COV-2 [facility] PERFORMING LAB (test code = 63673-4) BRANDI (test code = Negative result for [...] of the Act. Fact Sheet for Healthcare Providers:https://www.YouAppi.YuMingle/sites/default/f radha/product/documents/F act_Sheet_HC_Providers_L pex_GIMR-WsP-2.pdf Fact Sheet for Healthcare Patients:https://www.WeGame del.YuMingle/sites/default/fi les/product/documents/Fa ct_Sheet_Patients_Lyra_S ARS-CoV-2.pdf Performing Laboratory:[facility] [place] [address] [facility] (Asymptomatic ONLY)2021-07-04 00:21:04 Test Item Value Reference Range Interpretation Comments SARS-COV2/RT-PCR Negative Not Detected, (test code = Negative, See 04230-2) external report for linked test SARS-COV-2 [facility] PERFORMING LAB (test code = 90020-0) BRANDI (test code = Negative result for [...] of the Act. Fact Sheet for Healthcare Providers:https://www.YouAppi.YuMingle/sites/default/f radha/product/documents/F act_Sheet_HC_Providers_L lsd_EEKH-LyP-8.pdf Fact Sheet for Healthcare Patients:https://www.WeGame del.YuMingle/sites/default/fi les/product/documents/Fa ct_Sheet_Patients_Lyra_S ARS-CoV-2.pdf Performing Laboratory:[facility] [place] [address] [facility] (Asymptomatic ONLY)2021-07-04 00:21:04 Test Item Value Reference Range Interpretation Comments SARS-COV2/RT-PCR Negative Not Detected, (test code = Negative, See 26657-5) external report for linked test SARS-COV-2 [facility] PERFORMING LAB (test code = 05074-0) BRANDI (test code = Negative result for [...] of the Act. Fact Sheet for Healthcare Providers:https://www.YouAppi.YuMingle/sites/default/f radha/product/documents/F act_Sheet_HC_Providers_L uch_XTSJ-HkL-5.pdf Fact Sheet for Healthcare Patients:https://www.[employer] Corporation.YuMingle/sites/default/fi les/product/documents/Fa ct_Sheet_Patients_Alicia_S ARS-CoV-2.pdf Performing Laboratory:[facility] [place] [address] [facility] (Asymptomatic ONLY)2021-07-04 00:21:04 Test Item Value Reference Range Interpretation Comments SARS-COV2/RT-PCR Negative Not Detected, (test code = Negative, See 73630-0) external report for linked test SARS-COV-2 [facility] PERFORMING LAB (test code = 47153-6) BRANDI (test code = Negative result for [...] of the Act. Fact Sheet for Healthcare Providers:https://www.KeyNeurotek Pharmaceuticalsl.YuMingle/sites/default/f radha/product/documents/F act_Sheet_HC_Providers_L uvy_IRDH-RhM-9.pdf Fact Sheet for Healthcare Patients:https://www.Wesabe/sites/default/fi les/product/documents/Fa ct_Sheet_Patients_Lyra_S ARS-CoV-2.pdf Performing Laboratory:[facility], [place] [address] [place], [place] [address]ARS-COV2/RT-PCR ([facility])2021-07-04 00:21:04 Test Item Value Reference Range Interpretation Comments SARS-COV2/RT-PCR (test Negative Not Detected, Negative, code = 6085809) See external report for linked test SARS-COV-2 PERFORMING LAB [facility] (test code = 7762786) Negative result for this test determines that [...] of the Act.Fact Sheet for Healthcare Prov iders:https://www.Stylenda/sites/default/files/product/documents/Fact_Sheet_HC _Hkchrsimt_Glny_RFAQ-ZgX-1.pdfFact Sheet for Healthcare Patients:https://www.Stylenda/sites/default/files/product/docume nts/Cjiu_Gialx_Ogdrhaap_Jmvy_UIYR-JbQ-6.pdfPerforming Laboratory:[facility] [facility], [place] [address]ZDZD-WUCGQBC METER 2021-07-03 21:29:18 Test Item Value Reference Range Interpretation Comments POC-GLUCOSE METER 169 mg/dL 70-110 H : TESTED A T [facility] 6720 ([employer]) (test code = [facility], 1538) [address]: Bird Raiser/Techni kelle ID = [id number] for Co rtez, [place]gett POCT-GLUCOSE [id number] 17:51:28 Test Item Value Reference Range Interpretation Comments POC-GLUCOSE METER 110 mg/dL 70-110 : TESTED A T [facility] 67[address] (BEAKER) (test code = [facility], 1538) [address]88: Bird Raiser/Techni kelle ID = [id number] for OR JAMIR, EDMUNDO POCT-GLUCOSE [id number] 16:18:01 Test Item Value Reference Range Interpretation Comments POC-GLUCOSE METER 78 mg/dL 70-110 : TESTED A T [facility] 67[address] (BEAKER) (test code = [facility], 1538) 039[address]: Bird Raiser/Techni kelle ID = [id number] for Terr ell, [place] POC-Glucose [id number] 13:43:00 Test Item Value Reference Range Interpretation Comments POC-Glucose Meter (test 82 mg/dL 70-110 : TE STED AT [facility] code = 1538) [address] [place] [address], [address]: Bird Raiser/Techni kelle ID = [id number] for RENETTA STEARNS Lab Interpretation (test Normal code = 29845-3) [facility] [id number] 13:43:00 Test Item Value Reference Range Interpretation Comments POC-GLUCOSE METER 82 mg/dL 70-110 : TESTED A T [facility] 6720 (BEAKER) (test code = YUDY Vaca [facility], 1538) 82528: Bird Raiser/Techni kelle ID = [id number] for RENETTA STEARNS POCT-GLUCOSE [id number] 08:55:17 Test Item Value Reference Range Interpretation Comments POC-GLUCOSE METER 85 mg/dL 70-110 : TESTED A T [facility] 67[address] (NABILAKER) (test code = YUDY Vaca [facility], 1538) 28383: Bird Raiser/Techni kelle ID = [id number] for EDMUNDO DÍAZ RAD, CHEST, 1 VIEW, NON [id number] 07:19:00Reason for exam:->post-opShould this be performed at [...] Conteh Verified Date/Time: 07/03/2021 07:19:27 Reading Location: [facility] Reading Room BASIC METABOLIC [id number] 04:12:43 Test Item Value Reference Range Interpretation [...] S NOT APPLICABLE FOR DIALYSIS PATIEN TS. Bird Raiser ID - RAKAN [id number] 03:43:29 Test Item Value Reference Range Interpretation Comments MAGNESIUM (BEAKER) (test code = 2.1 mg/dL 1.6-2.6 627) Bird Raiser ID - RAKAN [id number] 03:43:29 Test Item Value Reference Range Interpretation Comments PHOSPHORUS (BEAKER) (test code = 3.4 mg/dL 2.3-4.7 604) Bird Raiser ID - RAKAN WCBC (HEMOGRAM ONLY)2021-07-03 03:25:24 [...] WBC 0-0 (test code = 413) POC-Glucose [id number] 21:37:50 Test Item Value Reference Range Interpretation Comments POC-Glucose Meter (test 97 mg/dL 70-110 : TE STED AT [facility] code = 1538) [address] [facility], 770 30: Bird Raiser/Techni kelle ID = [id number] for WASHINGTON MACKENZIE Lab Interpretation (test Normal code = 87139-2) [facility] [id number] 21:37:50 Test Item Value Reference Range Interpretation Comments POC-GLUCOSE METER 97 mg/dL 70-110 : TESTED A T [facility] [address] ([facility]) (test code = [facility], 1538) [address]: Bird Raiser/Techni kelle ID = [id number] for NATALIA RO, MACKENZIE POCT-GLUCOSE [id number] 18:00:54 Test Item Value Reference Range Interpretation Comments POC-GLUCOSE METER 166 mg/dL 70-110 H : TESTED A T [facility] 6720 (BEAKER) (test code = [facility], 1538) [address]: Bird Raiser/Techni kelle ID = [id number] for Kayla Emanuel POCT-GLUCOSE [id number] 13:01:12 Test Item Value Reference Range Interpretation Comments POC-GLUCOSE METER 169 mg/dL 70-110 H : TESTED A T [facility] 6720 (BEAKER) (test code = YUDY Vaca [facility], 1538) [address]: Bird Raiser/Techni kelle ID = [id number] for Kayla Emanuel POC-Glucose [id number] 08:45:07 Test Item Value Reference Range Interpretation Comments POC-Glucose Meter (test 134 mg/dL 70-110 H : TE STED AT [facility] code = 1538) [address] [facility], 770 30: Bird Raiser/Techni kelle ID = [id number] for Nawaf Freitas a Lab Interpretation (test Abnormal code = 28787-9) [facility] [id number] 08:45:07 Test Item Value Reference Range Interpretation Comments POC-GLUCOSE METER 134 mg/dL 70-110 H : TESTED A T [facility] 6720 (AKASH) (test code = YUDY Vaca [facility], 1538) [address]: Bird Raiser/Techni kelle ID = [id number] for Nitin rreraLiyaKayla RAD, CHEST, 1 VIEW, NON [id number] 08:36:00Reason for exam:->post-opShould this be performed at the bedside?->Yes [facility] : 1955 Sex: FFINAL REPORT RAD, CHEST, 1 VIEW, NON DEPT INDICATION: post-op COMPARISON: Prior day's exam TECHNIQUE: Portable frontal view of the chest. FINDINGS: Support Lines and Devices: Stable.Lungs and pleura: Unchanged airspace and pleural opacities. No pneumothorax identified. Heart and mediastinum: Mild to moderate cardiomegaly is present. Stable surgical changes. Additional findings: None. IMPRESSION: 1.No significant change from prior exam.2.Cardiomegaly with central pulmonary vascular congestion.3.Blunting of the right costophrenic sulcus, which may represent pleural thickening/scarring or small pleural effusion. Signed: Boogie Conteh MDReport Verified Date/Time: 07/02/2021 08:36:36 Reading Location: [facility] Radiology Reading Room Basic Metabolic [id number] 07:06:58 Test Item Value Reference Range Interpretation Comments Sodium (test code = 137 meq/L 497-839 3123-2) Potassium (test code = 3.9 meq/L 3.5-5.1 2823-3) Chloride (test code = 101 meq/L 98-107 2075-0) CO2 (test code = 28 meq/L 22-29 2028-9) BUN (test code = 23 mg/dL 7-21 H 3094-0) Creatinine (test code 3.16 mg/dL 0.57-1.25 H = 2160-0) Glucose (test code = 150 mg/dL 70-105 H 2345-7) Calcium (test code = 8.1 mg/dL 8.4-10.2 L 97015-0) EGFR (test code = 15 mL/min/1.73 [place] [address]-8) NOT ACCURATE CREATININE CLEARANCE IN PREDICTING GLOMERULAR FILTRATION RATE . ESTIMATED GFR I S NOT APPLICABLE FOR DIALYSIS PATIENTS. BRANDI (test code = BRANDI) Bird Raiser ID - PIAYA L Lab Interpretation Abnormal (test code = 71169-2) [facility]OL[facility] [id number] 07:06:58 Test Item Value Reference Range Interpretation [...] S NOT APPLICABLE FOR DIALYSIS PATIEN TS. Bird Raiser ID - LIANA [id number] 07:06:52 Test Item Value Reference Range Interpretation Comments Magnesium (test code = 1.9 mg/dL 1.6-2.6 41008-2) BRANDI (test code = BRANDI) Bird Raiser ID - LIANA L Lab Interpretation (test Normal code = 76487-6) [facility]2022-[facility] 07:06:52 Test Item Value Reference Range Interpretation Comments Phosphorus (test code = 2.6 mg/dL 2.3-4.7 2777-1) BRANDI (test code = BRANDI) Bird Raiser ID - LIANA L Lab Interpretation (test Normal code = 66606-7) [facility]2022-[facility]-31 07:06:52 Test Item Value Reference Range Interpretation Comments MAGNESIUM (BEAKER) (test code = 1.9 mg/dL 1.6-2.6 627) Bird Raiser ID - LIANA [id number] 07:06:52 Test Item Value Reference Range Interpretation Comments PHOSPHORUS (BEAKER) (test code = 2.6 mg/dL 2.3-4.7 604) Bird Raiser ID - LIANA LCBC (Hemogram only)2021-07-02 05:56:49 Test Item Value Reference Range Interpretation Comments WBC (test code = 6690-2) 4.6 See_Comment [A utomated message] The system [employer] generated this result transmitted ref erence range: 3.5 - 10 .5 K/L. The refe rence range was not u sed to interpret this result as normal/abnor mal. RBC (test code = 789-8) 2.50 See_Comment L [Au tomated message] The system [employer] generated this result transmitted ref erence range: 3.93 - 5 .22 M/L. The refe rence range was not u sed to interpret this result as normal/abnor mal. MCHC (test code = 786-4) 31.9 See_Comment L [A utomated message] The system [employer] generated this result transmitted ref erence range: [...] L [Aut omated message] 777-3) The system [employer] generated this result transmitted ref erence range: 150 - 45 0 K/CU MM. The referen ce range was not u sed to interpret this result as normal/abnor mal. MPV (test code = 11.3 fL 9.4-12.3 40549-8) nRBC (test code = 413) 0 See_Comment [Aut omated message] The system [employer] generated this result transmitted ref erence range: 0 - 0 /1 00 WBC. The refere nce range was not u sed to interpret this result as normal/abnor mal. Lab Interpretation (test Abnormal code = 77869-2) [facility] (HEMOGRAM ONLY)2021-07-02 05:56:49 Test Item Value [...] WBC 0-0 (test code = 413) POCT-GLUCOSE [id number] 21:57:03 Test Item Value Reference Range Interpretation Comments POC-GLUCOSE METER 179 mg/dL 70-110 H : TESTED A T [facility] 6720 (BEAKER) (test code = [facility], 153) 925[address]: Bird Raiser/Techni kelle ID = [id number] for JOSIE GONZALEZO POCT-GLUCOSE [id number] 17:59:08 Test Item Value Reference Range Interpretation Comments POC-GLUCOSE METER 208 mg/dL 70-110 H : TESTED A T [facility] 6720 (BEAKER) (test code = [facility], 153) 24258: Bird Raiser/Techni kelle ID = [id number] for Loco Hicks POCT-GLUCOSE [id number] 13:37:14 Test Item Value Reference Range Interpretation Comments POC-GLUCOSE METER 118 mg/dL 70-110 H : TESTED A T [facility] 6720 (BEAKER) (test code = [facility], 153) 83202: Bird Raiser/Techni kelle ID = [id number] for Millie Toledo RAD, CHEST, 1 VIEW, NON [id number] 09:58:00Reason for exam:->post-opShould this be performed at [...] Conteh Verified Date/Time: 07/01/2021 09:58:13 Reading Location: [facility] Radiology Reading Room POC-Glucose ofqpo1111-05-28 08:48:09 Test Item Value Reference Range Interpretation Comments POC-Glucose Meter (test 127 mg/dL 70-110 H : TE STED AT [facility] code = 1538) [address] [facility], 770 30: Bird Raiser/Techni kelle ID = [id number] for Loco Chapman Lab Interpretation (test Abnormal code = 20187-9) [facility] [id number] 08:48:09 Test Item Value Reference Range Interpretation Comments POC-GLUCOSE METER 127 mg/dL 70-110 H : TESTED A T [facility] 6720 (BEAKER) (test code = [facility] Barb [facility], 1538) 74907: Bird Raiser/Techni kelle ID = [id number] for Loco Hicks Basic Metabolic [id number] 06:34:36 Test Item Value Reference Range Interpretation [...] (test code = 8.2 mg/dL 8.4-10.2 L 60900-5) EGFR (test code = 10 mL/min/1.[place] [address]-2) NOT ACCURATE CREATININE CLEARANCE IN PREDICTING GLOMERULAR FILTRATION RATE . ESTIMATED GFR I S NOT APPLICABLE FOR DIALYSIS PATIENTS. BRANDI (test code = BRANDI) Bird Raiser ID - LIANA L Lab Interpretation Abnormal (test code = 28496-7) [facility] METABOLIC [id number] 06:34:36 Test Item Value Reference Range Interpretation [...] S NOT APPLICABLE FOR DIALYSIS PATIEN TS. Bird Raiser ID - LIANA HDldnalnhf8952-96-19 06:26:43 Test Item Value Reference Range Interpretation Comments Magnesium (test code = 2.1 mg/dL 1.6-2.6 09678-8) BRANDI (test code = BRANDI) Bird Raiser ID - LIANA L Lab Interpretation (test Normal code = 50295-8) [facility] 06:26:43 Test Item Value Reference Range Interpretation Comments Phosphorus (test code = 3.6 mg/dL 2.3-4.7 2777-1) BRANDI (test code = BRANDI) Bird Raiser ID - LIANA L Lab Interpretation (test Normal code = 31955-8) [facility]2022-[facility]-30 06:26:43 Test Item Value Reference Range Interpretation Comments MAGNESIUM (BEAKER) (test code = 2.1 mg/dL 1.6-2.6 627) Bird Raiser ID - LIANA ETLVIZPIHBX3728-53-09 06:26:43 Test Item Value Reference Range Interpretation Comments PHOSPHORUS (BEAKER) (test code = 3.6 mg/dL 2.3-4.7 604) Bird Raiser ID - LIANA LCBC (Hemogram only)2021-07-01 05:41:20 Test Item Value Reference Range Interpretation Comments WBC (test code = 6690-2) 4.8 See_Comment [A utomated message] The system [employer] generated this result transmitted ref erence range: 3.5 - 10 .5 K/L. The refe rence range was not u sed to interpret this result as normal/abnor mal. RBC (test code = 789-8) 2.60 See_Comment L [Au tomated message] The system [employer] generated this result transmitted ref erence range: 3.93 - 5 .22 M/L. The refe rence range was not u sed to interpret this result as normal/abnor mal. MCHC (test code = 786-4) 32.1 See_Comment L [A utomated message] The system [employer] generated this result transmitted ref erence range: [...] L [Aut omated message] 777-3) The system [employer] generated this result transmitted ref erence range: 150 - 45 0 K/CU MM. The referen ce range was not u sed to interpret this result as normal/abnor mal. MPV (test code = 11.3 fL 9.4-12.3 23925-7) nRBC (test code = 413) 0 See_Comment [Aut omated message] The system [employer] generated this result transmitted ref erence range: 0 - 0 /1 00 WBC. The refere nce range was not u sed to interpret this result as normal/abnor mal. Lab Interpretation (test Abnormal code = 98835-7) [facility] (HEMOGRAM ONLY)2021-07-01 05:41:20 Test Item Value [...] WBC 0-0 (test code = 413) POCT-GLUCOSE [id number] 21:14:47 Test Item Value Reference Range Interpretation Comments POC-GLUCOSE METER 159 mg/dL 70-110 H : TESTED A T [facility] 6720 (BEAKER) (test code = [place], 1538) 78[address]: Bird Raiser/Techni kelle ID = [id number] for RO FRANCESJOSIEO RAD, ABDOMEN/KUB, 1 VIEW [id number] 18:59:00Reason for exam:- >constipationShould this be performed at the bedside?->Yes [facility] : 1955 Sex: FFINAL REPORT Exam: RAD, ABDOMEN/KUB, 1 VIEW APDate: 06/30/2021 6:58 PM Indication:constipation COMPARISON: 06/24/2021 DISCUSSION/IMPRESSION: The lower thorax is within normal limits. Nonspecific bowel gas pattern. No evidence of free air within the limitations of this study. Signed: Kb Gregorio Verified Date/Time: 06/30/2021 18:59:30 Reading Location: [facility] [address] [place] [address] Reading Room POCT-GLUCOSE [id number] 17:39:03 Test Item Value Reference Range Interpretation Comments POC-GLUCOSE METER 204 mg/dL 70-110 H : TESTED A T [facility] 6720 (AKASH) (test code = YUDY [place] [facility], 1538) 04394: Bird Raiser/Techni kelle ID = [id number] for OR PHEY, EDMUNDO POCT-GLUCOSE [id number] 12:35:41 Test Item Value Reference Range Interpretation Comments POC-GLUCOSE METER 136 mg/dL 70-110 H : TESTED A T [facility] 6720 (AKASH) (test code = YUDY [place] [facility], 1538) 42172: Bird Raiser/Techni kelle ID = [id number] for OR PHEY, EDMUNDO RAD, CHEST, 1 VIEW, NON [id number] 09:21:00Reason for exam:->post-opShould this be performed at [...] Conteh Verified Date/Time: 06/30/2021 09:21:42 Reading Location: [facility] Radiology Reading Room POCT-GLUCOSE [id number] 08:26:49 Test Item Value Reference Range Interpretation Comments POC-GLUCOSE METER 132 mg/dL 70-110 H : TESTED A T [facility] 6720 (BEAKER) (test code = [facility] [place], 1538) [address]: Bird Raiser/Techni kelle ID = [id number] for OR EDMUNDO BOWIE BASIC METABOLIC [id number] 05:31:46 Test Item Value Reference Range Interpretation [...] S NOT APPLICABLE FOR DIALYSIS PATIEN TS. Bird Raiser ID - LIANA [id number] 05:28:01 Test Item Value Reference Range Interpretation Comments MAGNESIUM (BEAKER) (test code = 1.8 mg/dL 1.6-2.6 627) Bird Raiser ID - LIANA BQLJEHTTIDR5661-24-46 05:28:01 Test Item Value Reference Range Interpretation Comments PHOSPHORUS (BEAKER) (test code = 2.6 mg/dL 2.3-4.7 604) Bird Raiser ID - LIANA LCBC (HEMOGRAM ONLY)2021-06-30 05:03:10 [...] 0-0 (test code = 413) Prepare Leuko-Red [id number] 23:54:00 Test Item Value Reference Range Interpretation Comments CROSSMATCH (test code = 2264) COMPATIBLE Unit ABO (test code = O Pos 8932539) UNIT NUMBER (test code = [id number] 934-0) Status (test code = 4394711) [facility] Product (test code RED BLOOD CELLS = 2263) PRODUCT CODE (test code = J6073W28 933-2) [facility] [id number] 23:54:00 Test Item Value Reference Range Interpretation Comments CROSSMATCH (test code = 2264) COMPATIBLE Unit ABO (test code = O Pos 6433684) UNIT NUMBER (test code = [id number] 934-0) Status (test code = 7269901) [facility] Blood Bank Product (test code RED BLOOD CELLS = 2263) PRODUCT CODE (test code = V3743Y48 933-2) [facility] Leuko-Red [id number] 23:54:00 Test Item Value Reference Range Interpretation Comments CROSSMATCH (test code = 2264) COMPATIBLE Unit ABO (test code = O Pos 7734355) UNIT NUMBER (test code = [id number] 934-0) Status (test code = 8683542) TX_TIMEINCHART Blood Bank Product (test code RED BLOOD CELLS = 2263) PRODUCT CODE (test code = H5784W53 933-2) [facility] Leuko-Red [id number] 23:54:00 Test Item Value Reference Range Interpretation Comments CROSSMATCH (test code = 2264) COMPATIBLE Unit ABO (test code = O Pos 4343160) UNIT NUMBER (test code = [id number] 934-0) Status (test code = 4064886) TX_TIMEINCHART Blood Bank Product (test code RED BLOOD CELLS = 2263) PRODUCT CODE (test code = X0358E54 933-2) [facility] Leuko-Red [id number] 23:54:00 Test Item Value Reference Range Interpretation Comments CROSSMATCH (test code = 2264) COMPATIBLE Unit ABO (test code = O Pos 6855228) UNIT NUMBER (test code = [id number] 934-0) Status (test code = 1329444) TX_TIMEINCHART Blood Bank Product (test code RED BLOOD CELLS = 2263) PRODUCT CODE (test code = C1012X26 933-2) [facility]uko-Red [id number] 23:54:00 Test Item Value Reference Range Interpretation Comments CROSSMATCH (test code = 2264) COMPATIBLE Unit ABO (test code = O Pos 8363484) UNIT NUMBER (test code = [id number] 934-0) Status (test code = 0037338) TX_TIMEINCHART Blood Bank Product (test code RED BLOOD CELLS = 2263) PRODUCT CODE (test code = N3479S96 933-2) [facility]uko[facility]Red [id number] 23:54:00 Test Item Value Reference Range Interpretation Comments CROSSMATCH (test code = 2264) COMPATIBLE Unit ABO (test code = O Pos 3518632) UNIT NUMBER (test code = [id number] 934-0) Status (test code = 7014427) TX_TIMEINCHART Blood Bank Product (test code RED BLOOD CELLS = 2263) PRODUCT CODE (test code = P8492K92 933-2) [facility]uko[facility]Red [id number] 23:54:00 Test Item Value Reference Range Interpretation Comments CROSSMATCH (test code = 2264) COMPATIBLE Unit ABO (test code = O Pos 2319849) UNIT NUMBER (test code = [id number] 934-0) Status (test code = 1563829) TX_TIMEINCHART Blood Bank Product (test code RED BLOOD CELLS = 2263) PRODUCT CODE (test code = S4988I40 933-2) [facility] Leuko-Red [id number] 23:54:00 Test Item Value Reference Range Interpretation Comments CROSSMATCH (test code = 2264) COMPATIBLE Unit ABO (test code = O Pos 7811786) UNIT NUMBER (test code = [id number] 934-0) Status (test code = 3346582) TX_TIMEINCHART Blood Bank Product (test code RED BLOOD CELLS = 2263) PRODUCT CODE (test code = O4035K62 933-2) [facility] Leuko-Red [id number] 23:54:00 Test Item Value Reference Range Interpretation Comments CROSSMATCH (test code = 2264) COMPATIBLE Unit ABO (test code = O Pos 6280835) UNIT NUMBER (test code = [id number] 934-0) Status (test code = 3155559) TX_TIMEINCHART Blood Bank Product (test code RED BLOOD CELLS = 2263) PRODUCT CODE (test code = F0053U75 933-2) [facility] Leuko-Red [id number] 23:54:00 Test Item Value Reference Range Interpretation Comments CROSSMATCH (test code = 2264) COMPATIBLE Unit ABO (test code = O Pos 2251903) UNIT NUMBER (test code = [id number] 934-0) Status (test code = 0064693) TX_TIMEINCHART Blood Bank Product (test code RED BLOOD CELLS = 2263) PRODUCT CODE (test code = A4617G55 933-2) [facility]uko[facility]Red [id number] 23:54:00 Test Item Value Reference Range Interpretation Comments CROSSMATCH (test code = 2264) COMPATIBLE Unit ABO (test code = O Pos 5616742) UNIT NUMBER (test code = [id number] 934-0) Status (test code = 9330522) TX_TIMEINCHART Blood Bank Product (test code RED BLOOD CELLS = 2263) PRODUCT CODE (test code = F5311A20 933-2) [facility] [id number] 22:04:06 Test Item Value Reference Range Interpretation Comments POC-GLUCOSE METER 149 mg/dL 70-110 H : TESTED A T [facility] 6720 (BEAKER) (test code = [facility] Barb [facility], 1538) 95506: Bird Raiser/Techni kelle ID = [id number] for [place], Ti pastora POCT-GLUCOSE [id number] 17:55:17 Test Item Value Reference Range Interpretation Comments POC-GLUCOSE METER 150 mg/dL 70-110 H : TESTED A T [facility] 6720 (BEAKER) (test code = [facility], 1538) 86601: Bird Raiser/Techni kelle ID = [id number] for OR PHEY, EDMUNDO POCT-GLUCOSE [id number] 15:31:47 Test Item Value Reference Range Interpretation Comments POC-GLUCOSE METER 155 mg/dL 70-110 H : TESTED A T [facility] 6720 (BEAKER) (test code = [facility], 1538) 49995: Bird Raiser/Techni kelle ID = [id number] for OR PHEY, EDMUNDO RAD, CHEST, 1 VIEW, NON [id number] 10:41:00Reason for exam:->post-opShould this be performed at [...] Conteh Verified Date/Time: 06/29/2021 10:41:18 Reading Location: [facility] Radiology Reading Room POC-Glucose [id number] 08:51:04 Test Item Value Reference Range Interpretation Comments POC-Glucose Meter (test 208 mg/dL 70-110 H : TE STED AT [facility] code = 1538) [address] [facility], 770 30: Bird Raiser/Techni kelle ID = [id number] for ORPHEY, EDMUNDO Lab Interpretation (test Abnormal code = 46449-0) [facility] [id number] 08:51:04 Test Item Value Reference Range Interpretation Comments POC-Glucose Meter (test 208 mg/dL 70-110 H : TE STED AT [facility] code = 1538) [address] [facility], 770 30: Bird Raiser/Techni kelle ID = [id number] for ORPHEY, EDMUNDO Lab Interpretation (test Abnormal code = 95237-8) [facility]OP[facility] [id number] 08:51:04 Test Item Value Reference Range Interpretation Comments POC-GLUCOSE METER 208 mg/dL 70-110 H : TESTED A T [facility] 6720 (BEAKER) (test code = [facility], 1538) 17390: Bird Raiser/Techni kelle ID = [id number] for OR EDMUNDO BOWIE Basic Metabolic [id number] 06:07:27 Test Item Value Reference Range Interpretation Comments Sodium (test code = 133 meq/L 136-145 L 2951-2) Potassium (test code = 4.3 meq/L 3.5-5.1 2823-3) Chloride (test code = 99 meq/L 98-107 2075-0) CO2 (test code = 24 meq/L -2027-12) BUN (test code = 37 mg/dL 7-21 H 3094-0) Creatinine (test code 4.75 mg/dL 0.57-1.25 H = 2160-0) Glucose (test code = 257 mg/dL 70-105 H 2345-7) Calcium (test code = 8.0 mg/dL 8.4-10.2 L 23468-5) EGFR (test code = 9 mL/min/1.[place] [address]-0) NOT ACCURATE CREATININE CLEARANCE IN PREDICTING GLOMERULAR FILTRATION RATE . ESTIMATED GFR I S NOT APPLICABLE FOR DIALYSIS PATIENTS. BRANDI (test code = BRANDI) Bird Raiser ID - HIEN M Lab Interpretation Abnormal (test code = 85661-7) [facility] [id number] 06:07:27 Test Item Value Reference Range Interpretation Comments Sodium (test code = 133 meq/L 136-145 L 2951-2) Potassium (test code = 4.3 meq/L 3.5-5.1 2823-3) Chloride (test code = 99 meq/L 98-107 2075-0) CO2 (test code = 24 meq/L -29 9) BUN (test code = 37 mg/dL 7-21 H 3094-0) Creatinine (test code 4.75 mg/dL 0.57-1.25 H = 2160-0) Glucose (test code = 257 mg/dL 70-105 H 2345-7) Calcium (test code = 8.0 mg/dL 8.4-10.2 L 73040-8) EGFR (test code = 9 mL/min/1.[place] [address]-7) NOT ACCURATE CREATININE CLEARANCE IN PREDICTING GLOMERULAR FILTRATION RATE . ESTIMATED GFR I S NOT APPLICABLE FOR DIALYSIS PATIENTS. BRANDI (test code = BRANDI) Bird Raiser ID - HIEN M Lab Interpretation Abnormal (test code = 48746-8) [facility] Metabolic [id number] 06:07:27 Test Item Value Reference Range Interpretation [...] (test code = 8.0 mg/dL 8.4-10.2 L 93280-7) EGFR (test code = 9 mL/min/1.[place] [address]-3) NOT ACCURATE CREATININE CLEARANCE IN PREDICTING GLOMERULAR FILTRATION RATE . ESTIMATED GFR I S NOT APPLICABLE FOR DIALYSIS PATIENTS. BRANDI (test code = BRANDI) Bird Raiser ID - HIEN M Lab Interpretation Abnormal (test code = 10347-8) [facility] METABOLIC [id number] 06:07:27 Test Item Value Reference Range Interpretation [...] S NOT APPLICABLE FOR DIALYSIS PATIEN TS. Bird Raiser ID - HIEN XBqdshajxcm6626-47-86 06:05:44 Test Item Value Reference Range Interpretation Comments Phosphorus (test code = 2.5 mg/dL 2.3-4.7 2777-1) BRANDI (test code = BRANDI) Bird Raiser ID - HIEN Lab Interpretation (test Normal code = 36202-3) [facility]2022-03-28 06:05:44 Test Item Value Reference Range Interpretation Comments Phosphorus (test code = 2.5 mg/dL 2.3-4.7 2777-1) BRANDI (test code = BRANDI) Bird Raiser ID - HIEN M Lab Interpretation (test Normal code = 77709-3) [facility]2022-03-28 06:05:44 Test Item Value Reference Range Interpretation Comments Phosphorus (test code = 2.5 mg/dL 2.3-4.7 2777-1) BRANDI (test code = BRANDI) Bird Raiser ID - HIEN Lab Interpretation (test Normal code = 35779-4) [facility]2022-03-28 06:05:44 Test Item Value Reference Range Interpretation Comments PHOSPHORUS (BEAKER) (test code = 2.5 mg/dL 2.3-4.7 604) Bird Raiser ID - HIEN DRrwvorycv2982-83-05 06:05:43 Test Item Value Reference Range Interpretation Comments Magnesium (test code = 2.2 mg/dL 1.6-2.6 58783-3) BRANDI (test code = BRANDI) Bird Raiser ID - HIEN M Lab Interpretation (test Normal code = 02239-8) [facility]2022-03-28 06:05:43 Test Item Value Reference Range Interpretation Comments Magnesium (test code = 2.2 mg/dL 1.6-2.6 86938-5) BRANDI (test code = BRANDI) Bird Raiser ID - HIEN M Lab Interpretation (test Normal code = 20908-1) [facility] 06:05:43 Test Item Value Reference Range Interpretation Comments Magnesium (test code = 2.2 mg/dL 1.6-2.6 76211-0) BRANDI (test code = BRANDI) Bird Raiser ID - HIEN M Lab Interpretation (test Normal code = 52845-5) [facility]2022-03-28 06:05:43 Test Item Value Reference Range Interpretation Comments MAGNESIUM (BEAKER) (test code = 2.2 mg/dL 1.6-2.6 627) Bird Raiser ID - HIEN MCBC (Hemogram only)2021-06-29 05:32:19 Test Item Value Reference Range Interpretation Comments WBC (test code = 6690-2) 4.7 See_Comment [A utomated message] The system [employer] generated this result transmitted ref erence range: 3.5 - 10 .5 K/L. The refe rence range was not u sed to interpret this result as normal/abnor mal. RBC (test code = 789-8) 2.94 See_Comment L [Au tomated message] The system [employer] generated this result transmitted ref erence range: 3.93 - 5 .22 M/L. The refe rence range was not u sed to interpret this result as normal/abnor mal. MCHC (test code = 786-4) 31.8 See_Comment L [A utomated message] The system [employer] generated this result transmitted ref erence range: [...] L [Aut omated message] 777-3) The system [employer] generated this result transmitted ref erence range: 150 - 45 0 K/CU MM. The referen ce range was not u sed to interpret this result as normal/abnor mal. MPV (test code = 12.2 fL 9.4-12.3 75433-1) nRBC (test code = 413) 0 See_Comment [Aut omated message] The system [employer] generated this result transmitted ref erence range: 0 - 0 /1 00 WBC. The refere nce range was not u sed to interpret this result as normal/abnor mal. Lab Interpretation (test Abnormal code = 55644-1) [facility])2021-06-29 05:32:19 Test Item Value Reference Range Interpretation Comments WBC (test code = 6690-2) 4.7 See_Comment [A utomated message] The system [employer] generated this result transmitted ref erence range: 3.5 - 10 .5 K/L. The refe rence range was not u sed to interpret this result as normal/abnor mal. RBC (test code = 789-8) 2.94 See_Comment L [Au tomated message] The system [employer] generated this result transmitted ref erence range: 3.93 - 5 .22 M/L. The refe rence range was not u sed to interpret this result as normal/abnor mal. MCHC (test code = 786-4) 31.8 See_Comment L [A utomated message] The system [employer] generated this result transmitted ref erence range: [...] L [Aut omated message] 777-3) The system [employer] generated this result transmitted ref erence range: 150 - 45 0 K/CU MM. The referen ce range was not u sed to interpret this result as normal/abnor mal. MPV (test code = 12.2 fL 9.4-12.3 04997-2) nRBC (test code = 413) 0 See_Comment [Aut omated message] The system [employer] generated this result transmitted ref erence range: 0 - 0 /1 00 WBC. The refere nce range was not u sed to interpret this result as normal/abnor mal. Lab Interpretation (test Abnormal code = 00547-1) [facility] (Hemogram only)2021-06-29 05:32:19 Test Item Value Reference Range Interpretation Comments WBC (test code = 6690-2) 4.7 See_Comment [A utomated message] The system [employer] generated this result transmitted ref erence range: 3.5 - 10 .5 K/L. The refe rence range was not u sed to interpret this result as normal/abnor mal. RBC (test code = 789-8) 2.94 See_Comment L [Au tomated message] The system [employer] generated this result transmitted ref erence range: 3.93 - 5 .22 M/L. The refe rence range was not u sed to interpret this result as normal/abnor mal. MCHC (test code = 786-4) 31.8 See_Comment L [A utomated message] The system [employer] generated this result transmitted ref erence range: [...] L [Aut omated message] 777-3) The system [employer] generated this result transmitted ref erence range: 150 - 45 0 K/CU MM. The referen ce range was not u sed to interpret this result as normal/abnor mal. MPV (test code = 12.2 fL 9.4-12.3 51522-9) nRBC (test code = 413) 0 See_Comment [Aut omated message] The system [employer] generated this result transmitted ref erence range: 0 - 0 /1 00 WBC. The refere nce range was not u sed to interpret this result as normal/abnor mal. Lab Interpretation (test Abnormal code = 21171-6) [facility] (HEMOGRAM ONLY)2021-06-29 05:32:19 Test Item Value [...] WBC 0-0 (test code = 413) POC-Glucose [id number] 19:54:37 Test Item Value Reference Range Interpretation Comments POC-Glucose Meter (test 188 mg/dL 70-110 H : TE SHAHRIAR AT [facility] code = 1538) [address] [place], [address]: Bird Raiser/Techni kelle ID = [id number] for RAMON SPRING Lab Interpretation (test Abnormal code = 81287-9) [facility] [id number] 19:54:37 Test Item Value Reference Range Interpretation Comments POC-GLUCOSE METER 188 mg/dL 70-110 H : TESTED A T [facility] 6720 (BEAKER) (test code = [place], 1538) [address]: Bird Raiser/Techni kelle ID = [id number] for RAMON FLORES POCT-GLUCOSE [id number] 17:33:41 Test Item Value Reference Range Interpretation Comments POC-GLUCOSE METER 166 mg/dL 70-110 H : TESTED A T [facility] 6720 (BEAKER) (test code = [place]UD[place], 1538) [address]: Bird Raiser/Techni kelle ID = [id number] for Kayla Emanuel CBC with platelet count + automated vkwe6593-83-13 15:34:06 Test Item Value Reference Range Interpretation Comments WBC (test code = 6690-2) 4.6 See_Comment [A utomated message] The system [employer] generated this result transmitted ref erence range: 3.5 - 10 .5 K/L. The refe rence range was not u sed to interpret this result as normal/abnor mal. RBC (test code = 789-8) 2.86 See_Comment L [Au tomated message] The system [employer] generated this result transmitted ref erence range: 3.93 - 5 .22 M/L. The refe rence range was not u sed to interpret this result as normal/abnor mal. MCHC (test code = 786-4) 32.1 See_Comment L [A utomated message] The system [employer] generated this result transmitted ref erence range: [...] L [Aut omated message] 777-3) The system [employer] generated this result transmitted ref erence range: 150 - 45 0 K/CU MM. The referen ce range was not u sed to interpret this result as normal/abnor mal. MPV (test code = 11.0 fL 9.4-12.3 97243-2) nRBC (test code = 413) 0 See_Comment [Aut omated message] The system [employer] generated this result transmitted ref erence range: [...] See_Comment [Aut omated message] 670) The system [employer] generated this result transmitted ref erence range: 1.56 - 6 .13 K/L. The refe rence range was not u sed to interpret this result as normal/abnor mal. # Lymphs (test code = 0.73 See_Comment L [Auto mated message] 414) The system [employer] generated this result transmitted ref erence range: 1.18 - 3 .74 K/L. The refe rence range was not u sed to interpret this result as normal/abnor mal. # Monos (test code = 0.62 See_Comment H [Autom ated message] 415) The system [employer] generated this result transmitted ref erence range: 0.24 - 0 .36 K/L. The refe rence range was not u sed to interpret this result as normal/abnor mal. # Eos (test code = 416) 0.24 See_Comment [Au tomated message] The system [employer] generated this result transmitted ref erence range: 0.04 - 0 .36 K/L. The refe rence range was not u sed to interpret this result as normal/abnor mal. # Baso (test code = 417) 0.04 See_Comment [A utomated message] The system [employer] generated this result transmitted ref erence range: 0.01 - 0 .08 K/L. The refe rence range was not u sed to interpret this result as normal/abnor mal. Immature 0 % 0-1 Granulocytes-Relative (test code = 2801) Lab Interpretation (test Abnormal code = 53852-0) [facility] with platelet count + automated [id number] 15:34:06 Test Item Value Reference Range Interpretation Comments WBC (test code = 6690-2) 4.6 See_Comment [A utomated message] The system [employer] generated this result transmitted ref erence range: 3.5 - 10 .5 K/L. The refe rence range was not u sed to interpret this result as normal/abnor mal. RBC (test code = 789-8) 2.86 See_Comment L [Au tomated message] The system [employer] generated this result transmitted ref erence range: 3.93 - 5 .22 M/L. The refe rence range was not u sed to interpret this result as normal/abnor mal. MCHC (test code = 786-4) 32.1 See_Comment L [A utomated message] The system [employer] generated this result transmitted ref erence range: [...] L [Aut omated message] 777-3) The system [employer] generated this result transmitted ref erence range: 150 - 45 0 K/CU MM. The referen ce range was not u sed to interpret this result as normal/abnor mal. MPV (test code = 11.0 fL 9.4-12.3 59509-7) nRBC (test code = 413) 0 See_Comment [Aut omated message] The system [employer] generated this result transmitted ref erence range: [...] See_Comment [Aut omated message] 670) The system [employer] generated this result transmitted ref erence range: 1.56 - 6 .13 K/L. The refe rence range was not u sed to interpret this result as normal/abnor mal. # Lymphs (test code = 0.73 See_Comment L [Auto mated message] 414) The system [employer] generated this result transmitted ref erence range: 1.18 - 3 .74 K/L. The refe rence range was not u sed to interpret this result as normal/abnor mal. # Monos (test code = 0.62 See_Comment H [Autom ated message] 415) The system [employer] generated this result transmitted ref erence range: 0.24 - 0 .36 K/L. The refe rence range was not u sed to interpret this result as normal/abnor mal. # Eos (test code = 416) 0.24 See_Comment [Au tomated message] The system [employer] generated this result transmitted ref erence range: 0.04 - 0 .36 K/L. The refe rence range was not u sed to interpret this result as normal/abnor mal. # Baso (test code = 417) 0.04 See_Comment [A utomated message] The system [employer] generated this result transmitted ref erence range: 0.01 - 0 .08 K/L. The refe rence range was not u sed to interpret this result as normal/abnor mal. Immature 0 % 0-1 Granulocytes-Relative (test code = 2801) Lab Interpretation (test Abnormal code = 64610-6) [facility] with platelet count + automated [id number] 15:34:06 Test Item Value Reference Range Interpretation Comments WBC (test code = 6690-2) 4.6 See_Comment [A utomated message] The system [employer] generated this result transmitted ref erence range: 3.5 - 10 .5 K/L. The refe rence range was not u sed to interpret this result as normal/abnor mal. RBC (test code = 789-8) 2.86 See_Comment L [Au tomated message] The system [employer] generated this result transmitted ref erence range: 3.93 - 5 .22 M/L. The refe rence range was not u sed to interpret this result as normal/abnor mal. MCHC (test code = 786-4) 32.1 See_Comment L [A utomated message] The system [employer] generated this result transmitted ref erence range: [...] L [Aut omated message] 777-3) The system [employer] generated this result transmitted ref erence range: 150 - 45 0 K/CU MM. The referen ce range was not u sed to interpret this result as normal/abnor mal. MPV (test code = 11.0 fL 9.4-12.3 13088-0) nRBC (test code = 413) 0 See_Comment [Aut omated message] The system [employer] generated this result transmitted ref erence range: [...] See_Comment [Aut omated message] 670) The system [employer] generated this result transmitted ref erence range: 1.56 - 6 .13 K/L. The refe rence range was not u sed to interpret this result as normal/abnor mal. # Lymphs (test code = 0.73 See_Comment L [Auto mated message] 414) The system [employer] generated this result transmitted ref erence range: 1.18 - 3 .74 K/L. The refe rence range was not u sed to interpret this result as normal/abnor mal. # Monos (test code = 0.62 See_Comment H [Autom ated message] 415) The system [employer] generated this result transmitted ref erence range: 0.24 - 0 .36 K/L. The refe rence range was not u sed to interpret this result as normal/abnor mal. # Eos (test code = 416) 0.24 See_Comment [Au tomated message] The system [employer] generated this result transmitted ref erence range: 0.04 - 0 .36 K/L. The refe rence range was not u sed to interpret this result as normal/abnor mal. # Baso (test code = 417) 0.04 See_Comment [A utomated message] The system [employer] generated this result transmitted ref erence range: 0.01 - 0 .08 K/L. The refe rence range was not u sed to interpret this result as normal/abnor mal. Immature 0 % 0-1 Granulocytes-Relative (test code = 2801) Lab Interpretation (test Abnormal code = 17359-9) [facility] + automated [id number] 15:34:06 Test Item Value Reference Range Interpretation Comments WBC (test code = 6690-2) 4.6 See_Comment [A utomated message] The system [employer] generated this result transmitted ref erence range: 3.5 - 10 .5 K/L. The refe rence range was not u sed to interpret this result as normal/abnor mal. RBC (test code = 789-8) 2.86 See_Comment L [Au tomated message] The system [employer] generated this result transmitted ref erence range: 3.93 - 5 .22 M/L. The refe rence range was not u sed to interpret this result as normal/abnor mal. MCHC (test code = 786-4) 32.1 See_Comment L [A utomated message] The system [employer] generated this result transmitted ref erence range: [...] L [Aut omated message] 777-3) The system [employer] generated this result transmitted ref erence range: 150 - 45 0 K/CU MM. The referen ce range was not u sed to interpret this result as normal/abnor mal. MPV (test code = 11.0 fL 9.4-12.3 66376-5) nRBC (test code = 413) 0 See_Comment [Aut omated message] The system [employer] generated this result transmitted ref erence range: [...] See_Comment [Aut omated message] 670) The system [employer] generated this result transmitted ref erence range: 1.56 - 6 .13 K/L. The refe rence range was not u sed to interpret this result as normal/abnor mal. # Lymphs (test code = 0.73 See_Comment L [Auto mated message] 414) The system [employer] generated this result transmitted ref erence range: 1.18 - 3 .74 K/L. The refe rence range was not u sed to interpret this result as normal/abnor mal. # Monos (test code = 0.62 See_Comment H [Autom ated message] 415) The system [employer] generated this result transmitted ref erence range: 0.24 - 0 .36 K/L. The refe rence range was not u sed to interpret this result as normal/abnor mal. # Eos (test code = 416) 0.24 See_Comment [Au tomated message] The system [employer] generated this result transmitted ref erence range: 0.04 - 0 .36 K/L. The refe rence range was not u sed to interpret this result as normal/abnor mal. # Baso (test code = 417) 0.04 See_Comment [A utomated message] The system [employer] generated this result transmitted ref erence range: 0.01 - 0 .08 K/L. The refe rence range was not u sed to interpret this result as normal/abnor mal. Immature 0 % 0-1 Granulocytes-Relative (test code = 2801) Lab Interpretation (test Abnormal code = 62043-1) [facility] with platelet count + automated [id number] 15:34:06 Test Item Value Reference Range Interpretation Comments WBC (test code = 6690-2) 4.6 See_Comment [A utomated message] The system [employer] generated this result transmitted ref erence range: 3.5 - 10 .5 K/L. The refe rence range was not u sed to interpret this result as normal/abnor mal. RBC (test code = 789-8) 2.86 See_Comment L [Au tomated message] The system [employer] generated this result transmitted ref erence range: 3.93 - 5 .22 M/L. The refe rence range was not u sed to interpret this result as normal/abnor mal. MCHC (test code = 786-4) 32.1 See_Comment L [A utomated message] The system [employer] generated this result transmitted ref erence range: [...] L [Aut omated message] 777-3) The system [employer] generated this result transmitted ref erence range: 150 - 45 0 K/CU MM. The referen ce range was not u sed to interpret this result as normal/abnor mal. MPV (test code = 11.0 fL 9.4-12.3 39848-6) nRBC (test code = 413) 0 See_Comment [Aut omated message] The system [employer] generated this result transmitted ref erence range: [...] See_Comment [Aut omated message] 670) The system [employer] generated this result transmitted ref erence range: 1.56 - 6 .13 K/L. The refe rence range was not u sed to interpret this result as normal/abnor mal. # Lymphs (test code = 0.73 See_Comment L [Auto mated message] 414) The system [employer] generated this result transmitted ref erence range: 1.18 - 3 .74 K/L. The refe rence range was not u sed to interpret this result as normal/abnor mal. # Monos (test code = 0.62 See_Comment H [Autom ated message] 415) The system [employer] generated this result transmitted ref erence range: 0.24 - 0 .36 K/L. The refe rence range was not u sed to interpret this result as normal/abnor mal. # Eos (test code = 416) 0.24 See_Comment [Au tomated message] The system [employer] generated this result transmitted ref erence range: 0.04 - 0 .36 K/L. The refe rence range was not u sed to interpret this result as normal/abnor mal. # Baso (test code = 417) 0.04 See_Comment [A utomated message] The system [employer] generated this result transmitted ref erence range: 0.01 - 0 .08 K/L. The refe rence range was not u sed to interpret this result as normal/abnor mal. Immature 0 % 0-1 Granulocytes-Relative (test code = 2801) Lab Interpretation (test Abnormal code = 00163-9) [facility] with platelet count + automated [id number] 15:34:06 Test Item Value Reference Range Interpretation Comments WBC (test code = 6690-2) 4.6 See_Comment [A utomated message] The system [employer] generated this result transmitted ref erence range: 3.5 - 10 .5 K/L. The refe rence range was not u sed to interpret this result as normal/abnor mal. RBC (test code = 789-8) 2.86 See_Comment L [Au tomated message] The system [employer] generated this result transmitted ref erence range: 3.93 - 5 .22 M/L. The refe rence range was not u sed to interpret this result as normal/abnor mal. MCHC (test code = 786-4) 32.1 See_Comment L [A utomated message] The system [employer] generated this result transmitted ref erence range: [...] = 57 See_Comment L [Aut omated message] 427-3) The system [employer] generated this result transmitted ref erence range: 150 - 45 0 K/CU MM. The referen ce range was not u sed to interpret this result as normal/abnor mal. MPV (test code = 11.0 fL 9.4-12.3 79245-1) nRBC (test code = 413) 0 See_Comment [Aut omated message] The system [employer] generated this result transmitted ref erence range: [...] See_Comment [Aut omated message] 670) The system [employer] generated this result transmitted ref erence range: 1.56 - 6 .13 K/L. The refe rence range was not u sed to interpret this result as normal/abnor mal. # Lymphs (test code = 0.73 See_Comment L [Auto mated message] 414) The system [employer] generated this result transmitted ref erence range: 1.18 - 3 .74 K/L. The refe rence range was not u sed to interpret this result as normal/abnor mal. # Monos (test code = 0.62 See_Comment H [Autom ated message] 415) The system [employer] generated this result transmitted ref erence range: 0.24 - 0 .36 K/L. The refe rence range was not u sed to interpret this result as normal/abnor mal. # Eos (test code = 416) 0.24 See_Comment [Au tomated message] The system [employer] generated this result transmitted ref erence range: 0.04 - 0 .36 K/L. The refe rence range was not u sed to interpret this result as normal/abnor mal. # Baso (test code = 417) 0.04 See_Comment [A utomated message] The system [employer] generated this result transmitted ref erence range: 0.01 - 0 .08 K/L. The refe rence range was not u sed to interpret this result as normal/abnor mal. Immature 0 % 0-1 Granulocytes-Relative (test code = 2801) Lab Interpretation (test Abnormal code = 69826-3) [facility] with platelet count + automated [id number] 15:34:06 Test Item Value Reference Range Interpretation Comments WBC (test code = 6690-2) 4.6 See_Comment [A utomated message] The system [employer] generated this result transmitted ref erence range: 3.5 - 10 .5 K/L. The refe rence range was not u sed to interpret this result as normal/abnor mal. RBC (test code = 789-8) 2.86 See_Comment L [Au tomated message] The system [employer] generated this result transmitted ref erence range: 3.93 - 5 .22 M/L. The refe rence range was not u sed to interpret this result as normal/abnor mal. MCHC (test code = 786-4) 32.1 See_Comment L [A utomated message] The system [employer] generated this result transmitted ref erence range: [...] L [Aut omated message] 777-3) The system [employer] generated this result transmitted ref erence range: 150 - 45 0 K/CU MM. The referen ce range was not u sed to interpret this result as normal/abnor mal. MPV (test code = 11.0 fL 9.4-12.3 69338-8) nRBC (test code = 413) 0 See_Comment [Aut omated message] The system [employer] generated this result transmitted ref erence range: [...] See_Comment [Aut omated message] 670) The system [employer] generated this result transmitted ref erence range: 1.56 - 6 .13 K/L. The refe rence range was not u sed to interpret this result as normal/abnor mal. # Lymphs (test code = 0.73 See_Comment L [Auto mated message] 414) The system [employer] generated this result transmitted ref erence range: 1.18 - 3 .74 K/L. The refe rence range was not u sed to interpret this result as normal/abnor mal. # Monos (test code = 0.62 See_Comment H [Autom ated message] 415) The system [employer] generated this result transmitted ref erence range: 0.24 - 0 .36 K/L. The refe rence range was not u sed to interpret this result as normal/abnor mal. # Eos (test code = 416) 0.24 See_Comment [Au tomated message] The system [employer] generated this result transmitted ref erence range: 0.04 - 0 .36 K/L. The refe rence range was not u sed to interpret this result as normal/abnor mal. # Baso (test code = 417) 0.04 See_Comment [A utomated message] The system [employer] generated this result transmitted ref erence range: 0.01 - 0 .08 K/L. The refe rence range was not u sed to interpret this result as normal/abnor mal. Immature 0 % 0-1 Granulocytes-Relative (test code = 2801) Lab Interpretation (test Abnormal code = 46053-4) [facility] with platelet count + automated [id number] 15:34:06 Test Item Value Reference Range Interpretation Comments WBC (test code = 6690-2) 4.6 See_Comment [A utomated message] The system [employer] generated this result transmitted ref erence range: 3.5 - 10 .5 K/L. The refe rence range was not u sed to interpret this result as normal/abnor mal. RBC (test code = 789-8) 2.86 See_Comment L [Au tomated message] The system [employer] generated this result transmitted ref erence range: 3.93 - 5 .22 M/L. The refe rence range was not u sed to interpret this result as normal/abnor mal. MCHC (test code = 786-4) 32.1 See_Comment L [A utomated message] The system [employer] generated this result transmitted ref erence range: [...] L [Aut omated message] 777-3) The system [employer] generated this result transmitted ref erence range: 150 - 45 0 K/CU MM. The referen ce range was not u sed to interpret this result as normal/abnor mal. MPV (test code = 11.0 fL 9.4-12.3 51244-6) nRBC (test code = 413) 0 See_Comment [Aut omated message] The system [employer] generated this result transmitted ref erence range: [...] See_Comment [Aut omated message] 670) The system [employer] generated this result transmitted ref erence range: 1.56 - 6 .13 K/L. The refe rence range was not u sed to interpret this result as normal/abnor mal. # Lymphs (test code = 0.73 See_Comment L [Auto mated message] 414) The system [employer] generated this result transmitted ref erence range: 1.18 - 3 .74 K/L. The refe rence range was not u sed to interpret this result as normal/abnor mal. # Monos (test code = 0.62 See_Comment H [Autom ated message] 415) The system [employer] generated this result transmitted ref erence range: 0.24 - 0 .36 K/L. The refe rence range was not u sed to interpret this result as normal/abnor mal. # Eos (test code = 416) 0.24 See_Comment [Au tomated message] The system [employer] generated this result transmitted ref erence range: 0.04 - 0 .36 K/L. The refe rence range was not u sed to interpret this result as normal/abnor mal. # Baso (test code = 417) 0.04 See_Comment [A utomated message] The system [employer] generated this result transmitted ref erence range: 0.01 - 0 .08 K/L. The refe rence range was not u sed to interpret this result as normal/abnor mal. Immature 0 % 0-1 Granulocytes-Relative (test code = 2801) Lab Interpretation (test Abnormal code = 62480-4) [facility] with platelet count + automated [id number] 15:34:06 Test Item Value Reference Range Interpretation Comments WBC (test code = 6690-2) 4.6 See_Comment [A utomated message] The system [employer] generated this result transmitted ref erence range: 3.5 - 10 .5 K/L. The refe rence range was not u sed to interpret this result as normal/abnor mal. RBC (test code = 789-8) 2.86 See_Comment L [Au tomated message] The system [employer] generated this result transmitted ref erence range: 3.93 - 5 .22 M/L. The refe rence range was not u sed to interpret this result as normal/abnor mal. MCHC (test code = 786-4) 32.1 See_Comment L [A utomated message] The system [employer] generated this result transmitted ref erence range: [...] L [Aut omated message] 777-3) The system [employer] generated this result transmitted ref erence range: 150 - 45 0 K/CU MM. The referen ce range was not u sed to interpret this result as normal/abnor mal. MPV (test code = 11.0 fL 9.4-12.3 64223-5) nRBC (test code = 413) 0 See_Comment [Aut omated message] The system [employer] generated this result transmitted ref erence range: [...] See_Comment [Aut omated message] 670) The system [employer] generated this result transmitted ref erence range: 1.56 - 6 .13 K/L. The refe rence range was not u sed to interpret this result as normal/abnor mal. # Lymphs (test code = 0.73 See_Comment L [Auto mated message] 414) The system [employer] generated this result transmitted ref erence range: 1.18 - 3 .74 K/L. The refe rence range was not u sed to interpret this result as normal/abnor mal. # Monos (test code = 0.62 See_Comment H [Autom ated message] 415) The system [employer] generated this result transmitted ref erence range: 0.24 - 0 .36 K/L. The refe rence range was not u sed to interpret this result as normal/abnor mal. # Eos (test code = 416) 0.24 See_Comment [Au tomated message] The system [employer] generated this result transmitted ref erence range: 0.04 - 0 .36 K/L. The refe rence range was not u sed to interpret this result as normal/abnor mal. # Baso (test code = 417) 0.04 See_Comment [A utomated message] The system [employer] generated this result transmitted ref erence range: 0.01 - 0 .08 K/L. The refe rence range was not u sed to interpret this result as normal/abnor mal. Immature 0 % 0-1 Granulocytes-Relative (test code = 2801) Lab Interpretation (test Abnormal code = 52349-6) [facility] with platelet count + automated [id number] 15:34:06 Test Item Value Reference Range Interpretation Comments WBC (test code = 6690-2) 4.6 See_Comment [A utomated message] The system [employer] generated this result transmitted ref erence range: 3.5 - 10 .5 K/L. The refe rence range was not u sed to interpret this result as normal/abnor mal. RBC (test code = 789-8) 2.86 See_Comment L [Au tomated message] The system [employer] generated this result transmitted ref erence range: 3.93 - 5 .22 M/L. The refe rence range was not u sed to interpret this result as normal/abnor mal. MCHC (test code = 786-4) 32.1 See_Comment L [A utomated message] The system [employer] generated this result transmitted ref erence range: [...] L [Aut omated message] 777-3) The system [employer] generated this result transmitted ref erence range: 150 - 45 0 K/CU MM. The referen ce range was not u sed to interpret this result as normal/abnor mal. MPV (test code = 11.0 fL 9.4-12.3 97998-2) nRBC (test code = 413) 0 See_Comment [Aut omated message] The system [employer] generated this result transmitted ref erence range: [...] See_Comment [Aut omated message] 670) The system [employer] generated this result transmitted ref erence range: 1.56 - 6 .13 K/L. The refe rence range was not u sed to interpret this result as normal/abnor mal. # Lymphs (test code = 0.73 See_Comment L [Auto mated message] 414) The system [employer] generated this result transmitted ref erence range: 1.18 - 3 .74 K/L. The refe rence range was not u sed to interpret this result as normal/abnor mal. # Monos (test code = 0.62 See_Comment H [Autom ated message] 415) The system [employer] generated this result transmitted ref erence range: 0.24 - 0 .36 K/L. The refe rence range was not u sed to interpret this result as normal/abnor mal. # Eos (test code = 416) 0.24 See_Comment [Au tomated message] The system [employer] generated this result transmitted ref erence range: 0.04 - 0 .36 K/L. The refe rence range was not u sed to interpret this result as normal/abnor mal. # Baso (test code = 417) 0.04 See_Comment [A utomated message] The system [employer] generated this result transmitted ref erence range: 0.01 - 0 .08 K/L. The refe rence range was not u sed to interpret this result as normal/abnor mal. Immature 0 % 0-1 Granulocytes-Relative (test code = 2801) Lab Interpretation (test Abnormal code = 41390-2) [facility] with platelet count + automated [id number] 15:34:06 Test Item Value Reference Range Interpretation Comments WBC (test code = 6690-2) 4.6 See_Comment [A utomated message] The system [employer] generated this result transmitted ref erence range: 3.5 - 10 .5 K/L. The refe rence range was not u sed to interpret this result as normal/abnor mal. RBC (test code = 789-8) 2.86 See_Comment L [Au tomated message] The system [employer] generated this result transmitted ref erence range: 3.93 - 5 .22 M/L. The refe rence range was not u sed to interpret this result as normal/abnor mal. MCHC (test code = 786-4) 32.1 See_Comment L [A utomated message] The system [employer] generated this result transmitted ref erence range: [...] = 57 See_Comment L [Aut omated message] 167-3) The system [employer] generated this result transmitted ref erence range: 150 - 45 0 K/CU MM. The referen ce range was not u sed to interpret this result as normal/abnor mal. MPV (test code = 11.0 fL 9.4-12.3 64431-6) nRBC (test code = 413) 0 See_Comment [Aut omated message] The system [employer] generated this result transmitted ref erence range: [...] See_Comment [Aut omated message] 670) The system [employer] generated this result transmitted ref erence range: 1.56 - 6 .13 K/L. The refe rence range was not u sed to interpret this result as normal/abnor mal. # Lymphs (test code = 0.73 See_Comment L [Auto mated message] 414) The system [employer] generated this result transmitted ref erence range: 1.18 - 3 .74 K/L. The refe rence range was not u sed to interpret this result as normal/abnor mal. # Monos (test code = 0.62 See_Comment H [Autom ated message] 415) The system [employer] generated this result transmitted ref erence range: 0.24 - 0 .36 K/L. The refe rence range was not u sed to interpret this result as normal/abnor mal. # Eos (test code = 416) 0.24 See_Comment [Au tomated message] The system [employer] generated this result transmitted ref erence range: 0.04 - 0 .36 K/L. The refe rence range was not u sed to interpret this result as normal/abnor mal. # Baso (test code = 417) 0.04 See_Comment [A utomated message] The system [employer] generated this result transmitted ref erence range: 0.01 - 0 .08 K/L. The refe rence range was not u sed to interpret this result as normal/abnor mal. Immature 0 % 0-1 Granulocytes-Relative (test code = 2801) Lab Interpretation (test Abnormal code = 24422-0) [facility] with platelet count + automated [id number] 15:34:06 Test Item Value Reference Range Interpretation Comments WBC (test code = 6690-2) 4.6 See_Comment [A utomated message] The system [employer] generated this result transmitted ref erence range: 3.5 - 10 .5 K/L. The refe rence range was not u sed to interpret this result as normal/abnor mal. RBC (test code = 789-8) 2.86 See_Comment L [Au tomated message] The system [employer] generated this result transmitted ref erence range: 3.93 - 5 .22 M/L. The refe rence range was not u sed to interpret this result as normal/abnor mal. MCHC (test code = 786-4) 32.1 See_Comment L [A utomated message] The system [employer] generated this result transmitted ref erence range: [...] L [Aut omated message] 777-3) The system [employer] generated this result transmitted ref erence range: 150 - 45 0 K/CU MM. The referen ce range was not u sed to interpret this result as normal/abnor mal. MPV (test code = 11.0 fL 9.4-12.3 37395-3) nRBC (test code = 413) 0 See_Comment [Aut omated message] The system [employer] generated this result transmitted ref erence range: [...] See_Comment [Aut omated message] 670) The system [employer] generated this result transmitted ref erence range: 1.56 - 6 .13 K/L. The refe rence range was not u sed to interpret this result as normal/abnor mal. # Lymphs (test code = 0.73 See_Comment L [Auto mated message] 414) The system [employer] generated this result transmitted ref erence range: 1.18 - 3 .74 K/L. The refe rence range was not u sed to interpret this result as normal/abnor mal. # Monos (test code = 0.62 See_Comment H [Autom ated message] 415) The system [employer] generated this result transmitted ref erence range: 0.24 - 0 .36 K/L. The refe rence range was not u sed to interpret this result as normal/abnor mal. # Eos (test code = 416) 0.24 See_Comment [Au tomated message] The system [employer] generated this result transmitted ref erence range: 0.04 - 0 .36 K/L. The refe rence range was not u sed to interpret this result as normal/abnor mal. # Baso (test code = 417) 0.04 See_Comment [A utomated message] The system [employer] generated this result transmitted ref erence range: 0.01 - 0 .08 K/L. The refe rence range was not u sed to interpret this result as normal/abnor mal. Immature 0 % 0-1 Granulocytes-Relative (test code = 2801) Lab Interpretation (test Abnormal code = 35132-7) [facility] with platelet count + automated [id number] 15:34:06 Test Item Value Reference Range Interpretation Comments WBC (test code = 6690-2) 4.6 See_Comment [A utomated message] The system [employer] generated this result transmitted ref erence range: 3.5 - 10 .5 K/L. The refe rence range was not u sed to interpret this result as normal/abnor mal. RBC (test code = 789-8) 2.86 See_Comment L [Au tomated message] The system [employer] generated this result transmitted ref erence range: 3.93 - 5 .22 M/L. The refe rence range was not u sed to interpret this result as normal/abnor mal. MCHC (test code = 786-4) 32.1 See_Comment L [A utomated message] The system [employer] generated this result transmitted ref erence range: [...] L [Aut omated message] 777-3) The system [employer] generated this result transmitted ref erence range: 150 - 45 0 K/CU MM. The referen ce range was not u sed to interpret this result as normal/abnor mal. MPV (test code = 11.0 fL 9.4-12.3 67259-7) nRBC (test code = 413) 0 See_Comment [Aut omated message] The system [employer] generated this result transmitted ref erence range: [...] See_Comment [Aut omated message] 670) The system [employer] generated this result transmitted ref erence range: 1.56 - 6 .13 K/L. The refe rence range was not u sed to interpret this result as normal/abnor mal. # Lymphs (test code = 0.73 See_Comment L [Auto mated message] 414) The system [employer] generated this result transmitted ref erence range: 1.18 - 3 .74 K/L. The refe rence range was not u sed to interpret this result as normal/abnor mal. # Monos (test code = 0.62 See_Comment H [Autom ated message] 415) The system [employer] generated this result transmitted ref erence range: 0.24 - 0 .36 K/L. The refe rence range was not u sed to interpret this result as normal/abnor mal. # Eos (test code = 416) 0.24 See_Comment [Au tomated message] The system [employer] generated this result transmitted ref erence range: 0.04 - 0 .36 K/L. The refe rence range was not u sed to interpret this result as normal/abnor mal. # Baso (test code = 417) 0.04 See_Comment [A utomated message] The system [employer] generated this result transmitted ref erence range: 0.01 - 0 .08 K/L. The refe rence range was not u sed to interpret this result as normal/abnor mal. Immature 0 % 0-1 Granulocytes-Relative (test code = 2801) Lab Interpretation (test Abnormal code = 48960-6) [facility] with platelet count + automated [id number] 15:34:06 Test Item Value Reference Range Interpretation Comments WBC (test code = 6690-2) 4.6 See_Comment [A utomated message] The system [employer] generated this result transmitted ref erence range: 3.5 - 10 .5 K/L. The refe rence range was not u sed to interpret this result as normal/abnor mal. RBC (test code = 789-8) 2.86 See_Comment L [Au tomated message] The system [employer] generated this result transmitted ref erence range: 3.93 - 5 .22 M/L. The refe rence range was not u sed to interpret this result as normal/abnor mal. MCHC (test code = 786-4) 32.1 See_Comment L [A utomated message] The system [employer] generated this result transmitted ref erence range: [...] L [Aut omated message] 777-3) The system [employer] generated this result transmitted ref erence range: 150 - 45 0 K/CU MM. The referen ce range was not u sed to interpret this result as normal/abnor mal. MPV (test code = 11.0 fL 9.4-12.3 12426-7) nRBC (test code = 413) 0 See_Comment [Aut omated message] The system [employer] generated this result transmitted ref erence range: [...] See_Comment [Aut omated message] 670) The system [employer] generated this result transmitted ref erence range: 1.56 - 6 .13 K/L. The refe rence range was not u sed to interpret this result as normal/abnor mal. # Lymphs (test code = 0.73 See_Comment L [Auto mated message] 414) The system [employer] generated this result transmitted ref erence range: 1.18 - 3 .74 K/L. The refe rence range was not u sed to interpret this result as normal/abnor mal. # Monos (test code = 0.62 See_Comment H [Autom ated message] 415) The system [employer] generated this result transmitted ref erence range: 0.24 - 0 .36 K/L. The refe rence range was not u sed to interpret this result as normal/abnor mal. # Eos (test code = 416) 0.24 See_Comment [Au tomated message] The system [employer] generated this result transmitted ref erence range: 0.04 - 0 .36 K/L. The refe rence range was not u sed to interpret this result as normal/abnor mal. # Baso (test code = 417) 0.04 See_Comment [A utomated message] The system [employer] generated this result transmitted ref erence range: 0.01 - 0 .08 K/L. The refe rence range was not u sed to interpret this result as normal/abnor mal. Immature 0 % 0-1 Granulocytes-Relative (test code = 2801) Lab Interpretation (test Abnormal code = 17307-9) [facility] [id number] 15:34:06 Test Item Value Reference Range Interpretation Comments WBC (test code = 6690-2) 4.6 See_Comment [A utomated message] The system [employer] generated this result transmitted ref erence range: 3.5 - 10 .5 K/L. The refe rence range was not u sed to interpret this result as normal/abnor mal. RBC (test code = 789-8) 2.86 See_Comment L [Au tomated message] The system [employer] generated this result transmitted ref erence range: 3.93 - 5 .22 M/L. The refe rence range was not u sed to interpret this result as normal/abnor mal. MCHC (test code = 786-4) 32.1 See_Comment L [A utomated message] The system [employer] generated this result transmitted ref erence range: [...] L [Aut omated message] 777-3) The system [employer] generated this result transmitted ref erence range: 150 - 45 0 K/CU MM. The referen ce range was not u sed to interpret this result as normal/abnor mal. MPV (test code = 11.0 fL 9.4-12.3 30695-5) nRBC (test code = 413) 0 See_Comment [Aut omated message] The system [employer] generated this result transmitted ref erence range: [...] See_Comment [Aut omated message] 670) The system [employer] generated this result transmitted ref erence range: 1.56 - 6 .13 K/L. The refe rence range was not u sed to interpret this result as normal/abnor mal. # Lymphs (test code = 0.73 See_Comment L [Auto mated message] 414) The system [employer] generated this result transmitted ref erence range: 1.18 - 3 .74 K/L. The refe rence range was not u sed to interpret this result as normal/abnor mal. # Monos (test code = 0.62 See_Comment H [Autom ated message] 415) The system [employer] generated this result transmitted ref erence range: 0.24 - 0 .36 K/L. The refe rence range was not u sed to interpret this result as normal/abnor mal. # Eos (test code = 416) 0.24 See_Comment [Au tomated message] The system [employer] generated this result transmitted ref erence range: 0.04 - 0 .36 K/L. The refe rence range was not u sed to interpret this result as normal/abnor mal. # Baso (test code = 417) 0.04 See_Comment [A utomated message] The system [employer] generated this result transmitted ref erence range: 0.01 - 0 .08 K/L. The refe rence range was not u sed to interpret this result as normal/abnor mal. Immature 0 % 0-1 Granulocytes-Relative (test code = 2801) Lab Interpretation (test Abnormal code = 94567-4) [facility] W/PLT COUNT & AUTO [id number] 15:34:06 Test Item Value Reference Range Interpretation [...] PERCENT (BEAKER) (test code = 2801) POCT-GLUCOSE [id number] 12:42:57 Test Item Value Reference Range Interpretation Comments POC-GLUCOSE METER 216 mg/dL 70-110 H : TESTED A T [facility] 6720 (BEAKER) (test code = YUDY WHITE [place], 1538) 36848: Bird Raiser/Techni kelle ID = [id number] for Nitin hansen Kayla Prepare Leuko-Red [id number] 10:49:00 Test Item Value Reference Range Interpretation Comments CROSSMATCH (test code = 2264) COMPATIBLE Unit ABO (test code = O Pos 0010454) UNIT NUMBER (test code = [id number] 934-0) Status (test code = 3640810) ISSUED Blood Bank Product (test code RED BLOOD CELLS = 2263) PRODUCT CODE (test code = V2099F44 933-2) [facility] [id number] 10:49:00 Test Item Value Reference Range Interpretation Comments CROSSMATCH (test code = 2264) COMPATIBLE Unit ABO (test code = O Pos 6477528) UNIT NUMBER (test code = [id number] 934-0) Status (test code = 7799558) ISSUED Blood Bank Product (test code RED BLOOD CELLS = 2263) PRODUCT CODE (test code = Q1005L86 933-2) [facility] [id number] 10:49:00 Test Item Value Reference Range Interpretation Comments CROSSMATCH (test code = 2264) COMPATIBLE Unit ABO (test code = O Pos 8653586) UNIT NUMBER (test code = [id number] 934-0) Status (test code = 7348948) ISSUED Blood Bank Product (test code RED BLOOD CELLS = 2263) PRODUCT CODE (test code = G3828B00 933-2) [facility] [id number] 08:43:51 Test Item Value Reference Range Interpretation Comments POC-GLUCOSE METER 209 mg/dL 70-110 H : TESTED A T [facility] 67[address] (BEAKER) (test code = YUDY WHITE [place], 1538) 30[address]: Bird Raiser/Techni kelle ID = [id number] for Kayla Emanuel RAD, CHEST, 1 VIEW, NON [id number] 07:26:00Reason for exam:->post-opShould this be performed at [...] Cosme Verified Date/Time: 06/28/2021 07:26:22 BASIC METABOLIC [id number] 04:56:45 Test Item Value Reference Range Interpretation [...] S NOT APPLICABLE FOR DIALYSIS PATIEN TS. Bird Raiser ID - PIAYA [id number] 04:48:49 Test Item Value Reference Range Interpretation Comments MAGNESIUM (BEAKER) 2.0 mg/dL 1.6-2.6 Specimen slightly (test code = 627) hemolyzed Bird Raiser ID - PIAYA [id number] 04:48:49 Test Item Value Reference Range Interpretation Comments PHOSPHORUS (BEAKER) 2.5 mg/dL 2.3-4.7 Specimen slightly (test code = 604) hemolyzed Bird Raiser ID - PIAYA LCBC (HEMOGRAM ONLY)2021-06-28 04:28:17 [...] WBC 0-0 (test code = 413) POCT-GLUCOSE [id number] 21:38:17 Test Item Value Reference Range Interpretation Comments POC-GLUCOSE METER 200 mg/dL 70-110 H : TESTED A T [facility] 6720 (BEAKER) (test code = [facility], 153) 39504: Bird Raiser/Techni kelle ID = [id number] for RO FRANCES, MACKENZIE POCT-GLUCOSE [id number] 18:02:45 Test Item Value Reference Range Interpretation Comments POC-GLUCOSE METER 217 mg/dL 70-110 H : TESTED A T [facility] 6720 (BEAKER) (test code = [facility], 153) 61496: Bird Raiser/Techni kelle ID = [id number] for Ba rrera, Kayla POCT-GLUCOSE [id number] 15:14:18 Test Item Value Reference Range Interpretation Comments POC-GLUCOSE METER 229 mg/dL 70-110 H : TESTED A T [facility] 67[address] (BEAKER) (test code = [facility], 153) 09213: Bird Raiser/Techni kelle ID = [id number] for Ba rrera, Kayla POCT-GLUCOSE [id number] 12:20:23 Test Item Value Reference Range Interpretation Comments POC-GLUCOSE METER 160 mg/dL 70-110 H : TESTED A T [facility] 6720 (BEAKER) (test code = YUDY WHITE [place], 1538) 91776: Bird Raiser/Techni kelle ID = [id number] for Kayla Emanuel SARS-CoV2/RT-PCR (Asymptomatic ONLY)2021-06-27 10:39:35 Test Item Value Reference Range Interpretation Comments SARS-COV2/RT-PCR Negative Not Detected, (test code = Negative, See 62083-9) external report for linked test SARS-COV-2 [facility] ALICIA PERFORMING LAB (test code = 01821-9) BRANDI (test code = Negative result for [...] of the Act. Fact Sheet for Healthcare Providers:https://www.YouAppi.com/sites/default/f radha/product/documents/F act_Sheet_HC_Providers_L tco_MJBF-AlH-3.pdf Fact Sheet for Healthcare Patients:https://www.[employer].com/sites/default/fi les/product/documents/Fa ct_Sheet_Patients_Alicia_S ARS-CoV-2.pdf Performing Laboratory:[facility] [place] [address] [facility]2021-06-27 10:39:35 Test Item Value Reference Range Interpretation Comments SARS-COV2/RT-PCR Negative Not Detected, (test code = Negative, See 12087-9) external report for linked test SARS-COV-2 [facility] PERFORMING LAB (test code = 94518-5) BRANDI (test code = Negative result for [...] of the Act. Fact Sheet for Healthcare Providers:https://www.[employer].YuMingle/sites/default/f radha/product/documents/F act_Sheet_HC_Providers_L bfp_JGPF-CfG-2.pdf Fact Sheet for Healthcare Patients:https://www.[employer]/sites/default/fi les/product/documents/Fa ct_Sheet_Patients_Lyra_S ARS-CoV-2.pdf Performing Laboratory:[facility] [place] [address] [facility] (As[facility]omatic ONLY)2021-06-27 10:39:35 Test Item Value Reference Range Interpretation Comments SARS-COV2/RT-PCR Negative Not Detected, (test code = Negative, See 32089-9) external report for linked test SARS-COV-2 [facility] PERFORMING LAB (test code = 18570-1) BRANDI (test code = Negative result for [...] of the Act. Fact Sheet for Healthcare Providers:https://www.[employer]/sites/default/f radha/product/documents/F act_Sheet_HC_Providers_L mfp_ALSG-CfH-6.pdf Fact Sheet for Healthcare Patients:https://www.[employer]/sites/default/fi les/product/documents/Fa ct_Sheet_Patients_Lyra_S ARS-CoV-2.pdf Performing Laboratory:[facility] [place] [address] [facility] (Asymptomatic ONLY)2021-06-27 10:39:35 Test Item Value Reference Range Interpretation Comments SARS-COV2/RT-PCR Negative Not Detected, (test code = Negative, See 45702-9) external report for linked test SARS-COV-2 [facility] PERFORMING LAB (test code = 38293-0) BRANDI (test code = Negative result for [...] of the Act. Fact Sheet for Healthcare Providers:https://www.[employer]/sites/default/f radha/product/documents/F act_Sheet_HC_Providers_L wvm_TUKC-RfV-8.pdf Fact Sheet for Healthcare Patients:https://www.[employer]/sites/default/fi les/product/documents/Fa ct_Sheet_Patients_Lyra_S ARS-CoV-2.pdf Performing Laboratory:[facility] [place] [address] [facility] (Asymptomatic ONLY)2021-06-27 10:39:35 Test Item Value Reference Range Interpretation Comments SARS-COV2/RT-PCR Negative Not Detected, (test code = Negative, See 75027-2) external report for linked test SARS-COV-2 [facility] PERFORMING LAB (test code = 59089-3) BRANDI (test code = Negative result for [...] of the Act. Fact Sheet for Healthcare Providers:https://www.[employer]/sites/default/f radha/product/documents/F act_Sheet_HC_Providers_L iyk_BBAA-ZkC-4.pdf Fact Sheet for Healthcare Patients:https://www.[employer]/sites/default/fi les/product/documents/Fa ct_Sheet_Patients_Lyra_S ARS-CoV-2.pdf Performing Laboratory:[facility], [place] [address] [place], [place] [address]ARS-CoV2/RT-PCR (Asymptomatic ONLY)2021-06-27 10:39:35 Test Item Value Reference Range Interpretation Comments SARS-COV2/RT-PCR Negative Not Detected, (test code = Negative, See 51888-1) external report for linked test SARS-COV-2 [facility] PERFORMING LAB (test code = 31198-5) BRANDI (test code = Negative result for [...] of the Act. Fact Sheet for Healthcare Providers:https://www.[employer]/sites/default/f radha/product/documents/F act_Sheet_HC_Providers_L ucc_WHUJ-HaW-4.pdf Fact Sheet for Healthcare Patients:https://www.[employer]/sites/default/fi les/product/documents/Fa ct_Sheet_Patients_Lyra_S ARS-CoV-2.pdf Performing Laboratory:[facility]/RT-PCR (Asymptomatic ONLY)2021-06-27 10:39:35 Test Item Value Reference Range Interpretation Comments SARS-COV2/RT-PCR Negative Not Detected, (test code = Negative, See 19451-1) external report for linked test SARS-COV-2 [facility] PERFORMING LAB (test code = 87292-6) BRANDI (test code = Negative result for [...] of the Act. Fact Sheet for Healthcare Providers:https://www.[employer]/sites/default/f radha/product/documents/F act_Sheet_HC_Providers_L dmy_AAGL-FoQ-8.pdf Fact Sheet for Healthcare Patients:https://www.[employer]/sites/default/fi les/product/documents/Fa ct_Sheet_Patients_Lyra_S ARS-CoV-2.pdf Performing Laboratory:[facility] [place] [id number] [place], [place] [address]ARS-COV2/RT-PCR ([facility])2021-06-27 10:39:35 Test Item Value Reference Range Interpretation Comments SARS-COV2/RT-PCR (test Negative Not Detected, Negative, code = 1025486) See external report for linked test SARS-COV-2 PERFORMING LAB [facility] ALICIA (test code = 0334593) Negative result for this test determines that [...] of the Act.Fact Sheet for Healthcare Prov iders:https://www.[employer].YuMingle/sites/default/files/product/documents/Fact_Sheet_HC _Sglefavzu_Kaqm_BAKA-IiD-5.pdfFact Sheet for Healthcare Patients:https://www.[employer].com/sites/default/files/product/docume nts/Edqu_Yyimg_Uukclwcy_Tlte_KBMM-VeU-9.pdfPerforming Laboratory:[facility], [place] [address]CCOI-EKYKDSD METER 2021-06-27 08:35:14 Test Item Value Reference Range Interpretation Comments POC-GLUCOSE METER 99 mg/dL 70-110 : TESTED A T [facility] [address] (AKASH) (test code = YUDY [place] [facility], 1538) 78160: Bird Raiser/Techni kelle ID = [id number] for Kayla Arenas RAD, CHEST, 1 VIEW, NON [id number] 08:17:00Reason for exam:->post-opShould this be performed at the bedside?->Yes [facility] CENTERName: JAK MERRILL : 1955 Sex: FFINAL REPORT Chest, one view HISTORY: Postoperative Comparison: 06/26/2021 Findings: Lungs: Mild bilateral interstitial opacities, likely pulmonary venous congestion. No significant change. Heart: Unchanged moderate cardiomegaly. Pleura: No pleural effusion or pneumothorax. Bones: Unremarkable. Lines/tubes: Unchanged in position. Signed: Erlin Carr MDReport Verified Date/Time: 06/27/2021 08:17:45 Reading Location: [address] Consult Reading Room BASIC METABOLIC [id number] 05:32:33 Test Item Value Reference Range Interpretation [...] S NOT APPLICABLE FOR DIALYSIS PATIEN TS. Bird Raiser ID - HIEN [id number] 05:23:42 Test Item Value Reference Range Interpretation Comments PHOSPHORUS (BEAKER) (test code = 2.2 mg/dL 2.3-4.7 L 604) Bird Raiser ID - HIEN [id number] 05:23:41 Test Item Value Reference Range Interpretation Comments MAGNESIUM (BEAKER) (test code = 1.8 mg/dL 1.6-2.6 627) Bird Raiser ID - HIEN [id number] 05:19:04 Test Item Value Reference Range Interpretation Comments PTT (test code = 14565-8) 35.8 See_Comment [ Automated message] The system [employer] generated this result transmitted ref erence range: 22.5 - 3 6.0 seconds. The re ference range was not u sed to interpret this result as normal/abnor mal. Lab Interpretation (test Normal code = 71988-0) [facility] Test Item Value Reference Range Interpretation Comments PTT (test code = 90268-1) 35.8 See_Comment [ Automated message] The system [employer] generated this result transmitted ref erence range: 22.5 - 3 6.0 seconds. The re ference range was not u sed to interpret this result as normal/abnor mal. Lab Interpretation (test Normal code = 72350-5) [facility] 05:19:04 Test Item Value Reference Range Interpretation Comments PTT (test code = 74333-3) 35.8 See_Comment [ Automated message] The system [employer] generated this result transmitted ref erence range: 22.5 - 3 6.0 seconds. The re ference range was not u sed to interpret this result as normal/abnor mal. Lab Interpretation (test Normal code = 25040-3) [facility] Test Item Value Reference Range Interpretation Comments PTT (test code = 77091-7) 35.8 See_Comment [ Automated message] The system [employer] generated this result transmitted ref erence range: 22.5 - 3 6.0 seconds. The re ference range was not u sed to interpret this result as normal/abnor mal. Lab Interpretation (test Normal code = 20538-0) [place] 64817022-03-26 05:19:04 Test Item Value Reference Range Interpretation Comments PTT (test code = 47458-8) 35.8 See_Comment [ Automated message] The system [employer] generated this result transmitted ref erence range: 22.5 - 3 6.0 seconds. The re ference range was not u sed to interpret this result as normal/abnor mal. Lab Interpretation (test Normal code = 59339-5) [place] 64817022-03-26 05:19:04 Test Item Value Reference Range Interpretation Comments PTT (test code = 16479-8) 35.8 See_Comment [ Automated message] The system [employer] generated this result transmitted ref erence range: 22.5 - 3 6.0 seconds. The re ference range was not u sed to interpret this result as normal/abnor mal. Lab Interpretation (test Normal code = 72426-0) [place] 64817022-03-26 05:19:04 Test Item Value Reference Range Interpretation Comments PTT (test code = 12871-1) 35.8 See_Comment [ Automated message] The system [employer] generated this result transmitted ref erence range: 22.5 - 3 6.0 seconds. The re ference range was not u sed to interpret this result as normal/abnor mal. Lab Interpretation (test Normal code = 74047-3) [place] 64817022-03-26 05:19:04 Test Item Value Reference Range Interpretation Comments PTT (test code = 79960-9) 35.8 See_Comment [ Automated message] The system [employer] generated this result transmitted ref erence range: 22.5 - 3 6.0 seconds. The re ference range was not u sed to interpret this result as normal/abnor mal. Lab Interpretation (test Normal code = 70963-4) [place] 64817022-03-26 05:19:04 Test Item Value Reference Range Interpretation Comments PTT (test code = 73139-6) 35.8 See_Comment [ Automated message] The system [employer] generated this result transmitted ref erence range: 22.5 - 3 6.0 seconds. The re ference range was not u sed to interpret this result as normal/abnor mal. Lab Interpretation (test Normal code = 78044-5) [place] 64817022-03-26 05:19:04 Test Item Value Reference Range Interpretation Comments PTT (test code = 64777-5) 35.8 See_Comment [ Automated message] The system [employer] generated this result transmitted ref erence range: 22.5 - 3 6.0 seconds. The re ference range was not u sed to interpret this result as normal/abnor mal. Lab Interpretation (test Normal code = 75017-5) [place] 64817022-03-26 05:19:04 Test Item Value Reference Range Interpretation Comments PTT (test code = 87735-1) 35.8 See_Comment [ Automated message] The system [employer] generated this result transmitted ref erence range: 22.5 - 3 6.0 seconds. The re ference range was not u sed to interpret this result as normal/abnor mal. Lab Interpretation (test Normal code = 62441-3) [place] 64817022-03-26 05:19:04 Test Item Value Reference Range Interpretation Comments PTT (test code = 99654-8) 35.8 See_Comment [ Automated message] The system [employer] generated this result transmitted ref erence range: 22.5 - 3 6.0 seconds. The re ference range was not u sed to interpret this result as normal/abnor mal. Lab Interpretation (test Normal code = 32654-4) [place] 64817022-03-26 05:19:04 Test Item Value Reference Range Interpretation Comments PTT (test code = 33237-2) 35.8 See_Comment [ Automated message] The system [employer] generated this result transmitted ref erence range: 22.5 - 3 6.0 seconds. The re ference range was not u sed to interpret this result as normal/abnor mal. Lab Interpretation (test Normal code = 94509-1) [place] 64817022-03-26 05:19:04 Test Item Value Reference Range Interpretation Comments PTT (test code = 52521-1) 35.8 See_Comment [ Automated message] The system [employer] generated this result transmitted ref erence range: 22.5 - 3 6.0 seconds. The re ference range was not u sed to interpret this result as normal/abnor mal. Lab Interpretation (test Normal code = 35412-7) [facility] Test Item Value Reference Range Interpretation Comments PTT (test code = 81316-3) 35.8 See_Comment [ Automated message] The system [employer] generated this result transmitted ref erence range: 22.5 - 3 6.0 seconds. The re ference range was not u sed to interpret this result as normal/abnor mal. Lab Interpretation (test Normal code = 75183-7) [facility] Test Item Value Reference Range Interpretation Comments PARTIAL THROMBOPLASTIN TIME 35.8 seconds 22.5-36.0 (BEAKER) (test code = 760) Prothrombin time/[id number] 05:18:23 Test Item Value Reference Interpretation Comments Range Protime (test code = 13.9 See_Comment [Autom ated 5902-2) message] The system which generated this result transmitted reference range : 11.9 - 14.2 seconds. The reference range was not used to interpret this result as normal/abnormal . INR (test code = 1.09 <=5.90 6301-6) BRANDI (test code = RECOMMENDED BRANDI) COUMADIN/WARFARIN INR THERAPY RANGESSTANDARD DOSE: 2.0 - 3.0 Includes: PROPHYLAXIS for venous thrombosis, systemic embolization; TREATMENT for venous thrombosis and/or pulmonary embolus.HIGH RISK: Target INR is 2.5-3.5 for patients with mechanical heart valves. Lab Interpretation Normal (test code = 90315-4) [facility]/[id number] 05:18:23 Test Item Value Reference Interpretation Comments Range Protime (test code = 13.9 See_Comment [Autom ated 5902-2) message] The system which generated this result transmitted reference range : 11.9 - 14.2 seconds. The reference range was not used to interpret this result as normal/abnormal . INR (test code = 1.09 See_Comment [Automated [employer]1-6) message] The system which generated this [...] valves. Lab Interpretation Normal (test code = 69663-5) [facility]/[id number] 05:18:23 Test Item Value Reference Interpretation Comments Range Protime (test code = 13.9 See_Comment [Autom ated 5902-2) message] The system which generated this result transmitted reference range : 11.9 - 14.2 seconds. The reference range was not used to interpret this result as normal/abnormal . INR (test code = 1.09 See_Comment [Automated [employer]1-6) message] The system which generated this [...] valves. Lab Interpretation Normal (test code = 53906-2) [facility]/[id number] 05:18:23 Test Item Value Reference Interpretation Comments [...] valves. Lab Interpretation Normal (test code = 71795-3) [facility] time/[id number] 05:18:23 Test Item Value Reference Interpretation Comments [...] valves. Lab Interpretation Normal (test code = 02562-3) [facility] time/[id number] 05:18:23 Test Item Value Reference Interpretation Comments [...] valves. Lab Interpretation Normal (test code = 38145-5) [facility] time/[id number] 05:18:23 Test Item Value Reference Interpretation Comments [...] valves. Lab Interpretation Normal (test code = 64590-8) [facility] time/[id number] 05:18:23 Test Item Value Reference Interpretation Comments [...] valves. Lab Interpretation Normal (test code = 43690-1) [facility] time/[id number] 05:18:23 Test Item Value Reference Interpretation Comments Range Protime (test code = 13.9 See_Comment [Autom ated 5902-2) message] The system which generated this result transmitted reference range : 11.9 - 14.2 seconds. The reference range was not used to interpret this result as normal/abnormal . INR (test code = 1.09 See_Comment [Automated [employer]1-6) message] The system which generated this [...] valves. Lab Interpretation Normal (test code = 85754-2) [facility] time/[id number] 05:18:23 Test Item Value Reference Interpretation Comments Range Protime (test code = 13.9 See_Comment [Autom ated 5902-2) message] The system which generated this result transmitted reference range : 11.9 - 14.2 seconds. The reference range was not used to interpret this result as normal/abnormal . INR (test code = 1.09 See_Comment [Automated [employer]1-6) message] The system which generated this [...] valves. Lab Interpretation Normal (test code = 60389-8) [facility] time/[id number] 05:18:23 Test Item Value Reference Interpretation Comments [...] valves. Lab Interpretation Normal (test code = 07523-9) [facility] time/[id number] 05:18:23 Test Item Value Reference Interpretation Comments Range Protime (test code = 13.9 See_Comment [Autom ated 5902-2) message] The system which generated this result transmitted reference range : 11.9 - 14.2 seconds. The reference range was not used to interpret this result as normal/abnormal . INR (test code = 1.09 See_Comment [Automated [employer]1-6) message] The system which generated this [...] valves. Lab Interpretation Normal (test code = 30374-8) [facility]/[id number] 05:18:23 Test Item Value Reference Interpretation Comments [...] valves. Lab Interpretation Normal (test code = 07711-5) [facility]Pro[facility] time/[id number] 05:18:23 Test Item Value Reference Interpretation Comments [...] valves. Lab Interpretation Normal (test code = 34197-9) [facility]Pro[facility] time/[id number] 05:18:23 Test Item Value Reference Interpretation Comments [...] valves. Lab Interpretation Normal (test code = 42713-2) [facility]PROT[facility] TIME/[id number] 05:18:23 Test Item Value Reference Range Interpretation Comments PROTIME (BEAKER) 13.9 seconds 11.9-14.2 (test code = 759) INR (BEAKER) (test 1.09 See_Comment [Automat ed message] code = 370) The system [employer] generated this result transmitted ref erence range: [...] WBC 0-0 (test code = 413) POCT-GLUCOSE [id number] 21:11:10 Test Item Value Reference Range Interpretation Comments POC-GLUCOSE METER 158 mg/dL 70-110 H : TESTED A T [facility] 67[address] (BEAKER) (test code = [place]ERT[place] R [place], 1538) [address]: Bird Raiser/Techni kelle ID = [id number] for Re yes, Sairy POCT-GLUCOSE QPMBB0718-08-08 19:06:56 Test Item Value Reference Range Interpretation Comments POC-GLUCOSE METER 113 mg/dL 70-110 H : TESTED A T [facility] 67[address] (BEAKER) (test code GISELLA [facility], = 1538) [address]: Bird Raiser/Techni kelle ID = [id number] for Sutt on, Fadi Hemoglobin and ztauhkoxne7248-39-64 11:43:32 Test Item Value Reference Range Interpretation [...] = 4544-3) BRANDI (test code = BRANDI) Bird Raiser ID - 6000 Lab Interpretation Abnormal (test code = 06143-6) [facility] HospitalHemoglobin and namhuezjhx3531-81-73 11:43:32 Test Item Value Reference Range Interpretation [...] = 4544-3) BRANDI (test code = BRANDI) Bird Raiser ID - 6000 Lab Interpretation Abnormal (test code = 50914-5) [facility] HospitalHemoglobin and szvgpyfdum9539-39-06 11:43:32 Test Item Value Reference Range Interpretation [...] = 4544-3) BRANDI (test code = BRANDI) Bird Raiser ID - 6000 Lab Interpretation Abnormal (test code = 70356-8) [facility] HospitalHemoglobin and loqdedkbwg2108-94-58 11:43:32 Test Item Value Reference Range Interpretation [...] = 4544-3) BRANDI (test code = BRANDI) Bird Raiser ID - 6000 Lab Interpretation Abnormal (test code = 74496-4) [facility] HospitalHemoglobin and ybqfikptup6648-76-45 11:43:32 Test Item Value Reference Range Interpretation [...] = 4544-3) BRANDI (test code = BRANDI) Bird Raiser ID - 6000 Lab Interpretation Abnormal (test code = 35815-6) [facility] HospitalHemoglobin and dyjvrfvqml6475-02-26 11:43:32 Test Item Value Reference Range Interpretation [...] = 4544-3) BRANDI (test code = BRANDI) Bird Raiser ID - 6000 Lab Interpretation Abnormal (test code = 55644-1) [facility] HospitalH[facility] and rkvwnopgtg5980-12-36 11:43:32 Test Item Value Reference Range Interpretation [...] = 4544-3) BRANDI (test code = BRANDI) Bird Raiser ID - 6000 Lab Interpretation Abnormal (test code = 59695-3) [facility] HospitalHemoglobin and xfvihhxdjb1703-05-41 11:43:32 Test Item Value Reference Range Interpretation [...] = 4544-3) BRANDI (test code = BRANDI) Bird Raiser ID - 6000 Lab Interpretation Abnormal (test code = 24106-0) [facility] HospitalHemoglobin and hikglhyjsj7466-78-80 11:43:32 Test Item Value Reference Range Interpretation [...] = 4544-3) BRANDI (test code = BRANDI) Bird Raiser ID - 6000 Lab Interpretation Abnormal (test code = 99576-9) [facility] HospitalH[facility] and byuzhxztpa0918-74-69 11:43:32 Test Item Value Reference Range Interpretation [...] = 4544-3) BRANDI (test code = BRANDI) Bird Raiser ID - 6000 Lab Interpretation Abnormal (test code = 96365-3) [facility] Hospital[facility] and advqbkfxkj1395-14-73 11:43:32 Test Item Value Reference Range Interpretation [...] = 4544-3) BRANDI (test code = BRANDI) Bird Raiser ID - 6000 Lab Interpretation Abnormal (test code = 90494-0) [facility] HospitalH[facility] and ykkodafxdh5153-37-21 11:43:32 Test Item Value Reference Range Interpretation [...] = 4544-3) BRANDI (test code = BRANDI) Bird Raiser ID - 6000 Lab Interpretation Abnormal (test code = 07193-0) [facility] HospitalHem[facility] and fmhneugeov1289-17-73 11:43:32 Test Item Value Reference Range Interpretation [...] = 4544-3) BRANDI (test code = BRANDI) Bird Raiser ID - 6000 Lab Interpretation Abnormal (test code = 88406-4) [facility] HospitalH[facility] and wqbuwgdkhk3438-00-45 11:43:32 Test Item Value Reference Range Interpretation [...] = 4544-3) BRANDI (test code = BRANDI) Bird Raiser ID - 6000 Lab Interpretation Abnormal (test code = 82238-2) [facility] HospitalH[facility] and qixiiirygo6375-26-31 11:43:32 Test Item Value Reference Range Interpretation [...] = 4544-3) BRANDI (test code = BRANDI) Bird Raiser ID - 6000 Lab Interpretation Abnormal (test code = 24938-2) [facility] HospitalH[facility] and oiaurvqjlw5532-81-40 11:43:32 Test Item Value Reference Range Interpretation [...] = 4544-3) BRANDI (test code = BRANDI) Bird Raiser ID - 6000 Lab Interpretation Abnormal (test code = 31153-3) [facility] HospitalHEMOGLOBIN AND BUGIEUIOJW9254-12-36 11:43:32 Test Item Value Reference Range Interpretation Comments HEMOGLOBIN (BEAKER) (test code = 8.5 GM/DL 11.2-15.7 L 410) HEMATOCRIT (BEAKER) (test code = 26.8 % 34.1-44.9 L 411) Bird Raiser ID - 6000POC-Glucose pyxes9948-64-68 11:26:36 Test Item Value Reference Range Interpretation Comments POC-Glucose Meter (test 126 mg/dL 70-110 H : TE STED AT [facility] code = 1538) [address] [facility], [address]: Bird Raiser/Techni kelle ID = [id number] for Gala (contract)Meeta Lab Interpretation (test Abnormal code = 06145-0) [facility] HospitalPOCT-GLUCOSE [id number] 11:26:36 Test Item Value Reference Range Interpretation Comments POC-GLUCOSE METER 126 mg/dL 70-110 H : TESTED A T [facility] [address] (BEAKER) (test [facility] = [facility], 1538) [address]: Bird Raiser/Techni kelle ID = [id number] for Brando wayne (contract)Marilee POCT-GLUCOSE DHRJE7412-58-72 09:38:49 Test Item Value Reference Range Interpretation Comments POC-GLUCOSE METER 139 mg/dL 70-110 H : TESTED Cata Eid [facility] 67[address] (AKASH) (test code = YUDY [place], 1538) [address]: Bird Raiser/Techni kelle ID = [id number] for IB SILVERASWEETIE ANG, TUNNELED CATHETER RBVXSWNWI9104-86-08 08:44:00Reason for Central Line/PICC?->> 21 days of IV infusionReason for exam:->needs antibiotics > 10 days, ESRD, Nephrology does not approve PICC or midline. [facility] : 1955 Sex: FFINAL REPORT [...] MDReport Verified Date/Time: 06/26/2021 08:44:45 Reading Location: [address] Body Reading Room RAD, CHEST, 1 VIEW, NON [id number] 08:08:00Reason for exam:->post-opShould this be performed at [...] MDReport Verified Date/Time: 06/26/2021 08:08:37 Reading Location: [facility] Radiology Reading Room Prepare Leuko-Red [id number] 06:01:00 Test Item Value Reference Range Interpretation Comments CROSSMATCH (test code = 2264) COMPATIBLE Unit ABO (test code = O Pos 6983490) UNIT NUMBER (test code = [id number] 934-0) Status (test code = 1430418) ISSUED Blood Bank Product (test code RED BLOOD CELLS = 2263) PRODUCT CODE (test code = E6037O19 933-2) [facility] HospitalPrepare Leuko-Red [id number] 06:01:00 Test Item Value Reference Range Interpretation Comments CROSSMATCH (test code = 2264) COMPATIBLE Unit ABO (test code = O Pos 8036303) UNIT NUMBER (test code = [id number] 934-0) Status (test code = 7802089) ISSUED Blood Bank Product (test code RED BLOOD CELLS = 2263) PRODUCT CODE (test code = T0034Y05 933-2) [facility] HospitalBasic Metabolic Qvgmg5407-75-28 05:17:06 Test Item Value Reference Range Interpretation Comments Sodium (test code = 139 meq/L 959-907 7239-2) Potassium (test code = 3.7 meq/L 3.5-5.1 2823-3) Chloride (test code = 104 meq/L 98-107 2075-0) CO2 (test code = 23 meq/L 22-29 8-9) BUN (test code = 36 mg/dL 7-21 H 3094-0) Creatinine (test code 5.14 mg/dL 0.57-1.25 H = 2160-0) Glucose (test code = 170 mg/dL 70-105 H 2345-7) Calcium (test code = 8.2 mg/dL 8.4-10.2 L 86107-0) EGFR (test code = 8 mL/min/1.73 [place] [address]-3) NOT ACCURATE CREATININE CLEARANCE IN PREDICTING GLOMERULAR FILTRATION RATE . ESTIMATED GFR I S NOT APPLICABLE FOR DIALYSIS PATIENTS. BRANDI (test code = BRANDI) Bird Raiser ID - RAKAN W Lab Interpretation Abnormal (test code = 12502-2) [facility] Metabolic Dngsq1892-23-36 05:17:06 Test Item Value Reference Range Interpretation Comments Sodium (test code = 139 meq/L 054-671 3430-2) Potassium (test code = 3.7 meq/L 3.5-5.1 2823-3) Chloride (test code = 104 meq/L 98-107 2075-0) CO2 (test code = 23 meq/L 22-29 2028-9) BUN (test code = 36 mg/dL 7-21 H 3094-0) Creatinine (test code 5.14 mg/dL 0.57-1.25 H = 2160-0) Glucose (test code = 170 mg/dL 70-105 H 2345-7) Calcium (test code = 8.2 mg/dL 8.4-10.2 L 58449-8) EGFR (test code = 8 mL/min/1.73 [place] [address]-3) NOT ACCURATE CREATININE CLEARANCE IN PREDICTING GLOMERULAR FILTRATION RATE . ESTIMATED GFR I S NOT APPLICABLE FOR DIALYSIS PATIENTS. BRANDI (test code = BRANDI) Bird Raiser ID - RAKAN W Lab Interpretation Abnormal (test code = 13973-5) [facility] METABOLIC [id number] 05:17:06 Test Item Value Reference Range Interpretation [...] S NOT APPLICABLE FOR DIALYSIS PATIEN TS. Bird Raiser ID - RAKAN NJxqdwtqfac9226-10-32 05:00:22 Test Item Value Reference Range Interpretation Comments Phosphorus (test code = 3.7 mg/dL 2.3-4.7 2777-1) BRANDI (test code = BRANDI) Bird Raiser ID - RAKAN W Lab Interpretation (test Normal code = 91560-2) [facility]osph[facility] 05:00:22 Test Item Value Reference Range Interpretation Comments Phosphorus (test code = 3.7 mg/dL 2.3-4.7 2777-1) BRANDI (test code = BRANDI) Bird Raiser ID - RAKAN W Lab Interpretation (test Normal code = 86704-5) [facility]PHOSPHORUS2022-03-25 05:00:22 Test Item Value Reference Range Interpretation Comments PHOSPHORUS (BEAKER) (test code = 3.7 mg/dL 2.3-4.7 604) Bird Raiser ID - RAKAN KYoevvhxqd9255-94-23 05:00:21 Test Item Value Reference Range Interpretation Comments Magnesium (test code = 2.2 mg/dL 1.6-2.6 09955-4) BRANDI (test code = BRANDI) Bird Raiser ID - RAKAN W Lab Interpretation (test Normal code = 54981-3) [facility] HospitalMagnesium2022-03-25 05:00:21 Test Item Value Reference Range Interpretation Comments Magnesium (test code = 2.2 mg/dL 1.6-2.6 04929-4) BRANDI (test code = BRANDI) Bird Raiser ID - RAKAN W Lab Interpretation (test Normal code = 80540-2) [facility] HospitalMAGNESIUM2022-03-25 05:00:21 Test Item Value Reference Range Interpretation Comments MAGNESIUM (BEAKER) (test code = 2.2 mg/dL 1.6-2.6 627) Bird Raiser ID - RAKAN RqVOA0616-45-06 04:21:04 Test Item Value Reference Range Interpretation Comments PTT (test code = 47226-7) 35.7 See_Comment [ Automated message] The system [employer] generated this result transmitted ref erence range: 22.5 - 3 6.0 seconds. The re ference range was not u sed to interpret this result as normal/abnor mal. Lab Interpretation (test Normal code = 80884-7) [facility] 04:21:04 Test Item Value Reference Range Interpretation Comments PTT (test code = 84885-3) 35.7 See_Comment [ Automated message] The system [employer] generated this result transmitted ref erence range: 22.5 - 3 6.0 seconds. The re ference range was not u sed to interpret this result as normal/abnor mal. Lab Interpretation (test Normal code = 43213-7) [facility] 04:21:04 Test Item Value Reference Range Interpretation Comments PARTIAL THROMBOPLASTIN TIME 35.7 seconds 22.5-36.0 (BEAKER) (test code = 760) Prothrombin time/[id number] 04:20:24 Test Item Value Reference Interpretation Comments [...] valves. Lab Interpretation Normal (test code = 57094-2) [facility] HospitalProthrombin time/[id number] 04:20:24 Test Item Value Reference Interpretation Comments Range Protime (test code = 14.0 See_Comment [Autom ated 5902-2) message] The system which generated this result transmitted reference range : 11.9 - 14.2 seconds. The reference range was not used to interpret this result as normal/abnormal . INR (test code = 1.10 See_Comment [Automated 7701-6) message] The system which generated this result [...] valves. Lab Interpretation Normal (test code = 16000-5) [facility] HospitalPROTHROMBIN TIME/[id number] 04:20:24 Test Item Value Reference Range Interpretation Comments PROTIME (BEAKER) 14.0 seconds 11.9-14.2 (test code = 759) INR (BEAKER) (test 1.10 See_Comment [Automat ed message] code = 370) The system [employer] generated this result transmitted ref erence range: [...] 4.0 See_Comment [A utomated message] The system [employer] generated this result transmitted ref erence range: 3.5 - 10 .5 K/L. The refe rence range was not u sed to interpret this result as normal/abnor mal. RBC (test code = 789-8) 2.54 See_Comment L [Au tomated message] The system [employer] generated this result transmitted ref erence range: 3.93 - 5 .22 M/L. The refe rence range was not u sed to interpret this result as normal/abnor mal. MCHC (test code = 786-4) 31.2 See_Comment L [A utomated message] The system [employer] generated this result transmitted ref erence range: [...] L [Aut omated message] 777-3) The system [employer] generated this result transmitted ref erence range: 150 - 45 0 K/CU MM. The referen ce range was not u sed to interpret this result as normal/abnor mal. MPV (test code = 10.7 fL 9.4-12.3 05158-7) nRBC (test code = 413) 0 See_Comment [Aut omated message] The system [employer] generated this result transmitted ref erence range: 0 - 0 /1 00 WBC. The refere nce range was not u sed to interpret this result as normal/abnor mal. Lab Interpretation (test Abnormal code = 36166-6) [facility] (Hemogram only)2021-06-26 04:04:58 Test Item Value Reference Range Interpretation Comments WBC (test code = 6690-2) 4.0 See_Comment [A utomated message] The system [employer] generated this result transmitted ref erence range: 3.5 - 10 .5 K/L. The refe rence range was not u sed to interpret this result as normal/abnor mal. RBC (test code = 789-8) 2.54 See_Comment L [Au tomated message] The system [employer] generated this result transmitted ref erence range: 3.93 - 5 .22 M/L. The refe rence range was not u sed to interpret this result as normal/abnor mal. MCHC (test code = 786-4) 31.2 See_Comment L [A utomated message] The system [employer] generated this result transmitted ref erence range: [...] L [Aut omated message] 777-3) The system [employer] generated this result transmitted ref erence range: 150 - 45 0 K/CU MM. The referen ce range was not u sed to interpret this result as normal/abnor mal. MPV (test code = 10.7 fL 9.4-12.3 54812-1) nRBC (test code = 413) 0 See_Comment [Aut omated message] The system [employer] generated this result transmitted ref erence range: 0 - 0 /1 00 WBC. The refere nce range was not u sed to interpret this result as normal/abnor mal. Lab Interpretation (test Abnormal code = 74551-3) [facility] (HEMOGRAM ONLY)2021-06-26 04:04:58 Test Item Value [...] WBC 0-0 (test code = 413) POC-Glucose [id number] 21:57:30 Test Item Value Reference Range Interpretation Comments POC-Glucose Meter (test 204 mg/dL 70-110 H : TE STED AT [facility] code = 1538) [address] [facility], 770 30: Bird Raiser/Techni kelle ID = [id number] for Rodríguez Cancino Lab Interpretation (test Abnormal code = 89519-6) [facility] [id number] 21:57:30 Test Item Value Reference Range Interpretation Comments POC-GLUCOSE METER 204 mg/dL 70-110 H : TESTED A T [facility] 6720 (BEAKER) (test code = [facility] Barb [facility], 1538) [address]: Bird Raiser/Techni kelle ID = [id number] for Ad Rodríguez warner Type and screen, automated ([facility] Lab)2021-06-25 19:44:00 Test Item Value Reference Range Interpretation Comments ABO/RH AUTOMATED (BEAKER) (test O POSITIVE code = 2260) Ab Scrn (test code = 890-4) NEGATIVE [facility] ([facility] Lab)2021-06-25 19:44:00 Test Item Value Reference Range Interpretation Comments ABO/RH AUTOMATED (BEAKER) (test O POSITIVE code = 2260) Ab Scrn (test code = 890-4) NEGATIVE [facility] ([facility] Lab)2021-06-25 19:44:00 Test Item Value Reference [...] NEGATIVE [facility] ([facility])2021-06-25 19:44:00 [...] NEGATIVE [facility] ([facility])2021-06-25 19:44:00 [...] code = 890-4) NEGATIVE [facility] [id number] 11:31:12 Test Item Value Reference Range Interpretation Comments POC-GLUCOSE METER 130 mg/dL 70-110 H : TESTED A T [facility] 6720 (BEAKER) (test code = [place], 1538) [address]: Bird Raiser/Techni kelle ID = [id number] for PH EN-[place] (V), INES RAD, CHEST, 1 VIEW, NON [id number] 09:04:00Reason for exam:->post-opShould this be performed at the bedside?->Yes [facility] : 1955 Sex: FFINAL REPORT Chest AP portable Comparison exam: 06/24/2021 History provided: Postopevaluation Heart size magnified by projection. Lungs grossly free of acute disease and vascularity normal. Signed: Wero Alvarez Verified Date/Time: 06/25/2021 09:04:07 Reading Location: [facility] Diagnostic Imaging Reading Room - [facility] 1310. BASIC METABOLIC [id number] 03:58:40 Test Item Value Reference Range Interpretation [...] S NOT APPLICABLE FOR DIALYSIS PATIEN TS. Bird Raiser ID - [id number] 03:40:57 Test Item Value Reference Range Interpretation Comments PARTIAL THROMBOPLASTIN TIME 46.7 seconds 22.5-36.0 H (BEAKER) (test code = 760) PROTHROMBIN TIME/[id number] 03:39:54 Test Item Value Reference Range Interpretation Comments PROTIME (BEAKER) 13.6 seconds 11.9-14.2 (test code = 759) INR (BEAKER) (test 1.05 See_Comment [Automat ed message] code = 370) The system [employer] generated this result transmitted ref erence range: <=5.90. The reference range was not used to int erpret this result as normal/abnormal . RECOMMENDED COUMADIN/WARFARIN INR THERAPY RANGESSTANDARD DOSE: 2.0 - 3.0 Includes: PROPHYLAXIS for venous thrombosis, systemic embolization; TREATMENT for venous thrombosis and/or pulmonary embolus.HIGH RISK: Target INR is 2.5-3.5 for patients with mechanical heart valves.[id number] 03:34:10 Test Item Value Reference Range Interpretation Comments PHOSPHORUS (BEAKER) (test code = 3.8 mg/dL 2.3-4.7 604) Bird Raiser ID - [id number] 03:34:09 Test Item Value Reference Range Interpretation Comments MAGNESIUM (BEAKER) (test code = 2.3 mg/dL 1.6-2.6 627) Bird Raiser ID - BSCBC (HEMOGRAM ONLY)2021-06-25 03:11:29 Test [...] WBC 0-0 (test code = 413) POCT-GLUCOSE [id number] 22:14:10 Test Item Value Reference Range Interpretation Comments POC-GLUCOSE METER 185 mg/dL 70-110 H : TESTED A T [facility] 6720 (BEAKER) (test code = [place], 1538) [address]: Bird Raiser/Techni kelle ID = [id number] for En nisSheryl RAD, ABDOMEN/KUB, 1 VIEW [id number] 19:49:00Reason for exam:->concern for ileusShould this be [...] 06/24/2021 19:49:12 CT, CTA CORONARY, W/ YOEL [id number] 16:36:00 [facility] : 1955 Sex: FAddendum BeginsREPORT STATUS:A Impression: Mildly nodular appearance of the liver margins. Please correlate with underlying liver function tests to exclude chronic liver disease. No abnormally enhancing lesions in the liver parenchyma.Low-density lesion in the right lobe of the thyroid gland. Recommend dedicated thyroid ultrasound for further evaluation outpatient setting.Other findings as mentioned in the shingle weaver report.No additional significant nonvascular findings identified. Signed: Lise Andrade MDReport Verified Date/Time: 06/24/2021 16:36:13 Reading Location: [address] Radiology Reading RoomAddendum EndsFINAL REPORT CT [...] (< 1mm) were obtained. Please refer to [facility] regarding the medication administered for this [...] erformed. Coronary calcification was analyzed using the blogfostera system software. These are the results of [...] An addendum will be dictated thereafter by Low Raw [employer] Cutter Radiologist if dedicated thyroid ultrasound scan is [...] An addendum will be dictated by the [employer] C[employer] Radiologist regarding the nonvascular findings. THE REPORT WILL ONLY BE CONSIDERED COMPLETE AFTER THE ADDENDUM HAS BEEN DICTATED. Signed: Dung [facility] Verified Date/Time: 06/23/2021 08:29:48 POCT-GLUCOSE [id number] 16:19:22 Test Item Value Reference Range Interpretation Comments POC-GLUCOSE METER 108 mg/dL 70-110 : TESTED A T [facility] 6720 (BEAKER) (test code = QUIQUEANTELMO Vaca [facility], 1538) [address]: Bird Raiser/Techni kelle ID = [id number] for Eze (contract) Yohan Tissue [id number] 15:29:08 Test Item Value Reference Range Interpretation Comments Case Report (test code Surgical Pathology = 104) Report Case: [id number] Authorizing Provider: Logan Russo MD Collected: 06/18/2021 11:41 AM Ordering Location: [facility] Received: 06/19/2021 03:44 PM PERIOPERATIVE SERVICES Pathologist: Tom Paige MD Specimen: Mass, MITRAL VALVE MASS- for MICROBIOLOGY then pls send to Pathology DIAGNOSIS (test code = [id number] 3220) uZzEwMzNcZnRuYmpcdWMxIH tccnRmMVxlcGljOTYwMVxhb uJnKJFvxONsZ4VgzjimFExp AE4yYD5ndQkadUSxzCYsEWR hEgNhj1fcl069wARfc2gzPQ GVxegsjBt5wGjjT67re7G3H xmdB68kyVYdPYB5HKRmZVEe yKKgQZUzUXY5NQDnuAIoE4z pGFRqNJ3dbawiSNocQLuxKI ZrnIH2EJJzeLGfU8HyVISxO LabEXMtdrj4YgLmTk5ciVSz eTcyMFxwYXJkXHBsYWluXGZ iXpZzZG4mIUFQMiUpXH0HVM JBTCBWQUxWRSwgREVCUklER K8ZJfHbQK9PFWQFNWELEpkh cGFyIEZJQlJJTiwgQUNVVEU aDL9XJRZNDAVVX0WIWSNKW1 UPW2UXLLINMrPrH0QVF2zCF DIFEIiDSs0pjNXnNVJWHSBJ VOrrN2VCYI1SHCHVUcHQIcH HX0PXZ0QQGA9GG4SIDONRKx EVBR2TLW7DWJDUWJZECsEDB NNQTfYZW7vTT3ndPTysKQMt B19OTzTXLLMKO65qL9vGEME GQQWNL5GVJ8xWY3bQQByuL8 HFJMyEAqYQPzXGTBMKBC3GR bUHNG1iSFSkjt03LIT6WtKc t7P8NPW2NRAkAQDlf2foMGR mbGFuZzEwMzNcZnRuYmpcdW FxBAKlRzOzl7edu585hOVef 6idEYMuJbY7vAEtHQBemNOl N028SOUpXRjkg1dyi9ShLZR hpDOwl3W0DEWOmlugkXf3hO qxR47pi8R3ShpcB4nwQGJwH JWgD4ZtCZ7qNQYeOfk3MOQ3 YAV9JJXnRWCsX9XtZQ1kWEQ pySWeYXz0q8oqtLzqWUYlIJ I0i6mkJKdbkxWoPH5ixt3jt Ru5q9qvjuQdEKWiNELkuQOB BZMnZ0SbaUcyYg3lhBr8ePb lBfqvXPJ6Hip7NQ4jbc68ci n4iKysJFTupkcaLaJ6BMmxX CLrfkgyOPi9EFxgJDZzhBZ3 WJZtkHUeU9SfXWMnZD3qnzi 4GPJ1BCqcLYPrTeB9TDOhqA FzWRMewNvmWQiqu646LNK1O oZyRJ9xF6Hto3C1eT5nuWIm XUQjsOFxQgGbLPYhoz9wyCQ zXQmqa4EyVSE6gfK5nBFzcG LoREXxDgT8JNnlYH4bmb25U OXoBEW6tk7vtKOllJyrxkOh sSDiKLkrV9XbZJBxb149GWN vT2PqGQPuo5G8boQuRbOlWI CyrUL1bzK7OJZsIV4nfnqie 2duAYplQKbyFVZueuF9aaX2 VCPchEZhM6RgjL0kRASpRJ2 esfajc8rhDDC7KObhUQRhVV B3UfOtUXLrp2Lbaur0LoKpk 9UgsEJtONdoF92nq905XUFd ryJgB0uzcVFvorpoeYQgixz vKFyncwH7SPTmPUkvfcsiVI QmMJerP6eyPrLkBTXerUfnJ Guvj1OxNAUhZCGpClZvbDLl DXZcFci7YHDzxAKkWCJwJcV oV8gbkjxbUrDZTFDwe9hdP0 uckOZXmEGiQ5XhXFcfmfPiD UywUItzUkSoHODnVH68CUO9 PMDmup38 CPT Code(s) (test code w9nplIHhOQUlxPW8ZrNyDSN = 3357) ki0jsv0JatHIhySVnYSfwdW GuwjXsaj42qFY9tZ98FR3jU NWqIcV4RJEfxxA0Dyj3RUVb BILrzOXaZ459q0xxl3tetyY uhDT5vJsdDDKnpsoeCqZ8FG yrNTFhszgzXQp0UEjkTZPff VS3QCPecFTjG9YvCOAoNO2p jbd2XXV3ZNozJIEuQiV0SWH gdOZzITJqnJqxAHbxp160ZJ X3QnArEWVgjyUixWovmB9uN wXgLFT7RGGrQCwrLBjrRCII L1ebNDD1 CLINICAL HISTORY (test p6fdsCNeWDEeuUY0JaXyBWZ code = 3356) xt4kmd7VetENynVPpJQtsoF XxcgJxxe95kCC7cS65RY4aI MFgKpI9ESQtgiG0Tog9SLEf BVDmdHDgK745g0daw8tehpT fpRS0bTcxDLCwdxznFmH7LY vpNJEjlyooBHe5EMxuLVLks ZO4VLVelPFuC8RtHXBfSQ2m yhl8CUT0MSzfGRIkJyB3YEE maFBjFZMwbFniJKkhb305RQ F3HuJoJBNlvwJygZxyoP7jM rVhTXFNutVmW0KtOMa7cZIz cGFyfQ== SPECIMEN SOURCE (test p2csxICdPQOrwPA4FaFhRTS code = 3377) ki9ajh2HkaCHawPIvLSgsfQ FppnNuui15kJP6pT29CE5aR AQvRwD7KLPitpC1Hjn9HWKx DJCcxAWjC705l6ryl3lqywJ ufGF8gCtcNEDvqnrnDzT3UC lrJPTcnokmXUd5NHijOJBkb XM5RTCpsQVfF0CtCSBfQY3n rtv5SFA7OKvjTHPoTgG6YSN xbUAjPUAmfQvgBTjtn109WS B8JqZwXEFthmEwtHfqoP2uZ nMyMCBNaXRyYWwgdmFsdmVc cGFyfQ== GROSS DESCRIPTION g0iyhBOpSZIjvMOjDgMjFSR (test code = 3366) tKWSpq2oaHLDguTMdEsHgWq NcZnRuYmpcdWMxXGRlZmYwe 6lhq662oTLlh5xhFWRdYkW7 mPGgISStxDTuR047GDKrJOe le8nai0IcZLGjyZKqf6G2SI HWzrdpnRx7rBbgK17ko1R1A mphD1wwKWMgMQAfU0HiTD4e RWIgZpw1XKT2MLB6PKNsDSE rJ9RwYY5rSFZmnGYvNMj2u9 naxXzdXBWhBVY6i8tnZDvhe nDoOF4xfz8txZe8r6aguyTr YCNwSIUwyJGUBWExR3RbhAl kVz7dzIb8sUwrSfjzOOX8Jc q4CW5eyo02tsd0jCipATPha kivXmY5HIxpSHQonaxsTMy2 MFxtYXJnbDcyMFxtYXJncjc yMFxtYXJndDcyMFxtYXJnYj hiTBbsKMNoCAA5IGwqt257L BI9WYvvw3iqg1qopLQqJoo4 OQMxCrKuVptoCVbsp7Nml3w kICWxzr3yJLR1oJWkdFfng0 M3gGDdIXVirAQllbSlFKNxB cH5FWsuZX0btf76QPFyCHG1 fn4naSEfyMtmroAlsIWoAJa nC6TjJXNad044BENjO5YkPK Vfa0B1olJqDuNcBDEasWD4n nG8NNCgAWu1yAOmieW7nmNm gXLoM5pwsT89RoBzgOUaI6P ctT54BzRgiTDmU7JzyW74Xq LigKFvI7AbfP40YnGnwDOrQ LUnfAQeCk4blDOfvYGno1Rr fACxKXgbR72of796OHYzzvR mP7pkaFUkgrjbzWHpaathOJ jteyG7PSJgKYBvBDwyJYIpD GZzMjBcbGFuZzEwMzNcaGlj cMetUFpcWjVdJOVkNFljG8s cZjBcZnMyMCBBLiAgUmVjZW b4DSBbwP0jOh1uwNCfeC3lj WBtYQngQWY9hSGcISFvULQh GBXsKQ46Z1RlaT4yc3NdBBT vi03rKY1iBRVvoLTcNTbmvh FsdmUgbWFzcyIgaXMgYSAxL gFqJ91xsQ9qpQUfM3WlOQX6 IDAuMyBjbSBpbiBkaWFtZXR ebyC7CC8omMiyykV4hZKlnJ TwUVqvtOYdAEwiACS5Yc9no FHfHOZtmbA7m3NhNCguEUEe d1QohNEdAZNsCqlcNOWinNY vCQTbbnZpmLgyfQ4zGuMjVe MyNFxwbGFpblxmMVxmczIwX SqqspekMMHkNTdtY7meTwVx BBIkoRyrSEfqp3DsTQIaPMP jYpYjDKAvMCZoa6evIF62ZN xwbGFpblxmMFxmczIwXGxhb ovcHDDwCTbxG3gtFuMxGGZk vCbsHLgcn5ZiMJFlLZVtSiQ ccGFyfQ== MICROSCOPIC d9dizHUsFPUcoSM6KfGzBGW DESCRIPTION (test code et2brl4TiySQcxNNzSFuptC = 3371) VwyqHswm62oRT5nV69MJ9lA ZLlHkG0RCUfijI8Eqa9SWBd VQLbqNFtL471e8qgm2vawsD bdUV5sHtwYZUsjyexKxG4ME gpRZKltduvYAv8CMnhXMKmo GF8RLAnzURcL8HdFOLfYI0t cvp3RTM5VZdhASJaSjB9LSA ulPMgMVQzjSucXWgxk325DT D9XlGoBGHjnsBuaLaywA1iG bDvDMXDZAClx8EgVLYaSWCg cn0= SPECIAL STUDIES (test o6ijcLTyGORxhCB7EpMrHGW code = 3376) kp4ies9KepJCwyFXfANjecH DertTxnt40lNT7vF66QP5uR ZWzSfO1FCAyvpX6Krq0RTVp TAAcoUOlH571JAOzRUIaqOr aucj2xP39YZPjnK2wbXSlSE nfbeIkYHmgrlBagrTrYjh8S EN6eRipZDVbtiimTtK0AWxy QJMomvycCJn3HAijCWPiwFC 2VTHaqSZxQ5NtAYOeWR1zfy a0YRW6PHetUTWjJaU6VKHly SRaHPEpeMgsPOshz812ETG4 EgDtJBFpszYwtVbbhM6yRkT cZnMyMlxjZjEgVGhlIGludG EalFKalAI0mF7lWV7bDFQps HIuP1ZhLQHwkpBtsDUaJSR8 jHFqaBFwYI6gCJxyrNWff5k ne9CdT9suwRdypQV6UJ9mVB DqZEBtAAiyi1VrqT4jCokmN CJjI5RuQGVPX8UJOEZoAMVB Uk1QOnMMAsUlBsUTGh6uTCo NUywgQUZCXHBhclxwYXJkXG TnQUWVl592ze8qWHVryTUbl kNVtYHoyS2pQPrbRJlaIUqo zCDbEYooe7csOCAja5x6jEB gYUPzjwZxn9sxPHtgbwDwZG GyhPCtrBFvATQng27yYWnfe RljsCcsJHAhm0EgoUvpl0Nd AtAuNOnax7XmB91avPRngEM mhKyoZNGbekWlCKRtj46mg1 rgFDCvAyQ1dRZwvRD9hQChy OSfs7FxiSulVEDil6ziDROu ga4kowfqhHSjj3MehB2ptew rWNpktIRcghWwTOVwl6s3gU PtDUVtHWUyKSgmwAo3WKVdp 282oc6xukL4qWVjPYZ9MUzm YWJsZSBhcmUgZXZhbHVhdGV tWKDuuiMrFUNnzjQUkK21hf 0gtFS9y5QpBK7jv0OflCP8T WNobmljYWwgdGVzdGluZyB3 CNOgmRCyLb4qjKBgHUB8JYG rwHmjjkJMlJ5qIFQxICm7DI XnArGeFunanaVSMDIjW1WcD WLtdnNsyylrONS0iL3td1s5 HHpeLl3yZWRjiksvk9sbwzZ suDOlp9EiPCMgbwXho8KpYB XfwiLiqYGeSMEffsJhsc1uw nViNSQlBVUrL4ZaktjsqZye jnE4UYItKARweNSzqLveBXE kOIr1MAuhkfZcu1HoAiXnvv XzmZIjlsWwTI1fZIYiqRMeg oCyNAF4AOThWFQHIjRkLXMh p5ZiIN8rHJOpqNujOIOkzG1 gq2YcWFXxw55cOWBpVWOKGZ EgaGFzIGRldGVybWluZWQgd ZpioVZnaOOcIJEfERVeUD4s UOOyfuBntEEhy2AkqMVpycJ vz3UteaZpDHCbZFB6DsMZdU FvmNMsgUKmqcQ9h5EiUMQca qEunSmstYLnkGQipTHhd9Ui as0rJMKpo7ddgPdoBJ3rrCL iZSByZWdhcmRlZCBhcyBpbn Yxw9WgT7N4sN0sZYyvl4GlX b9eZMCpl6FbdzWbWkUJbHip LZnwMf5aJOMasmketGGkO1J ydGlmaWVkIHVuZGVyIHRoZS KOmCejpVKntRWXMRTlbbU9y 3U2IDtqcFGkxiGbNH65KEDs LB3ziWFxsQDhc6WyXLw5AFL lF3mPWY55ILbsQKKadKVzaJ gtyKItFALhRXJacrJgct7dc FoukTTog78goSI7oBX0MVWf rZ1nC2VfBLpdZm5rBQQmnrd lbHBgfWnjGt3maOMtxF== Gross assessment was [facility] performed at ([place], code = 2777) Department of Pathology, [address] [place] [address], Technical component [facility] was performed at ([place], code = 2778) Department of Pathology, [address] [place] [address], Professional component [facility] was performed at ([place], code = 2779) Department of Pathology, [address] [place] [address], [facility] [id number] 15:29:08 Test Item Value Reference Range Interpretation Comments Case Report (test code Surgical Pathology = 104) Report Case: [id number] Authorizing Provider: Logan Russo MD Collected: 06/18/2021 11:41 AM Ordering Location: [facility] Received: 06/19/2021 03:44 PM PERIOPERATIVE SERVICES Pathologist: Tom Paige MD Specimen: Mass, MITRAL VALVE MASS- for MICROBIOLOGY then pls send to Pathology DIAGNOSIS (test code = [id number] 3220) uZzEwMzNcZnRuYmpcdWMxIH tccnRmMVxlcGljOTYwMVxhb sOmPNQnoZJuD9KnhysaOCnh JO9uFO9ihElbaDPljIXoOKT dUnZcg4fri941eAZzo4qgAP ESjxhjbFo3uNgbX77jn8U7B blaK57odGCzOKI5FXClHTSu pTSlUGDtVDQ9TCUykEIfQ0b sGNDzQI8nhwwyYIywZTokWN VmkVR1RGXroQPzX1QyNQZeC PliHMFhdwz9BnYeHa6kgRNs eTcyMFxwYXJkXHBsYWluXGZ hThQgET6vLZRIHhHdLV5UZL JBTCBWQUxWRSwgREVCUklER G1PQmCaDV6TMKYMKKEEZlnl cGFyIEZJQlJJTiwgQUNVVEU qVC1VXEWUIDSJL9SIVBCDY8 JTD5CHGHGUPzAfK3SUD9hQN HUAMTpPKf0jqWPbNIJBQEIY PBbnZ0ZVEP3LHYMGRyKVCbM IS2HVQ1TEVS6DA7DGJTXGQd LQBU1XIC4FWUUCRFQYMtMHO XLHHdSFO8eQN1gvZVolLYIt B29HQcMZCHJOT57bF8tGETJ SWEKMA1YXQ0iKB9rOBNvaL4 WWZEcDDwSJBuESWQIPEA5YT oBLDC6dIXSkvd58SGQ1ZtCc g5M5SET7YVIqLPXgq6ltYON mbGFuZzEwMzNcZnRuYmpcdW EfKPIpAfBwi6fap394sQOzo 3mkBQAoQtS6mEUySJCwySVb N265BIMmCYtab3syv6KpBAT pkLOby1Y5FWOVsmeszTl8mE blG49ix4C2QtuzC4fsBHJjM MYmS4XcWJ2vJJGxKar4LGQ0 PIK1ARUeEKLuU9OoML1sFBK blATpQQd6e4ujpXfmNUSkCF T8h5byGKcqxfWuRU0kel7dd Py5x1lywoUbCLTzKTHaiANC WYXoA5YxcYelQp6zxJw9cOb dKjdtKIA0Rzq3CW2brh63nz l7uUoeJBGvtndnHaM9PWdkN JJnilnzIQf8ZGxlJJUbzLY8 WTOeeBXrS8GdHMEyTT9vdtv 8JTL2HRztNKCzMqF3ECWayB RiPSRlhRyeQQqeq349LOW6Q rYfBV2cN8Vji3A7pW8mrQBl OALsvVFxFwYdZQExbk3nvRF gTXcte7GnPPH0mfM2bORklT CkGRQsWhL1TLdwQD2bkh54O CBaNQW1yd5jdNYvvYayuaQt kBHbDEefN5LvFVLyy175BUS cV3ThAVIyk1B4prRgRoWiJL LseUG0lpM1DBIzMT1gxygga 0vkSIcqYMxwFCOhsjI3shE5 DVEfjNDuM1RsqN3iMZDyDO3 toxslg1nqMCN8XGlmZGFwWH Y9VoOuVVXgu2Lcvth2NgYzt 4VabQHnRBdrE49yv170EWWt rdJgF1xxyZWwwcpcbJPbmjv jIKxgpsK4AIUcAEeuodjwCC ZfONzqX1biGrDvZOZyaWiyM Fecf8VgRACcSUVqKlXtcIAe EEJaOxo8EPMksRGaILVsNqH qK4geoaqbIoLAGSAyi2gyW9 lqpFCVdLXrX5XgSIwwduYwB GmgJTaiPfVkPKPsMF27QLJ4 FUZfeb19 CPT Code(s) (test code z7fzaBYsALRixGU6ClPwGKH = 3357) ae6ryo9SncOOulZDuVHeaxP HukwCzdo29pGH1zL52EC5eG RVkMuR3QQVvczO1Hea0WMJs CYCbgOBqP080b5nnx8wjzdN axPT0qXcrNDZadsjhYoD3OB sqAGJfxnoyTBb5PRvyRWNib EE3HKJhaKMgS5EcXMJmHH0g xaa4YEQ6NKbsRKJvGvQ5JAW hwOXrVFAaqGuiXOglh755ZI F9TyWqUCOewqJnkRzurF1nV pAtKXW4ZYRbXZanBPllBTQH S3ytMJW2 CLINICAL HISTORY (test y0gseQJeKSZuuES8AfAeVNH code = 3356) pp8juy6ZniSDbcZWaOZwjrU WgkxAikd95cLJ1uX01ZR1aO EUbXdM0YQJgwhL5Wjv7MHTm VWGnwZGcF128a1wjn8kzfvW eiVW2sLovWRSjdrjxBcG3FW maFJBycmozDHb2XYcfCHWfw QH8RSKjgSSaI1HlRZTeMN3e kqg2PAG2NTocMSOePtX2REW rtBTyIPVcsVtgQZbvx083AE Q2TzKuRYCbxhYnlNwqyS0cB vSzDPPMnsXmZ7KiCYd4bSKc cGFyfQ== SPECIMEN SOURCE (test n5cbiRIvEWBspBF1YhIjLNR code = 3377) bi8jfj4PutJPliRPuTLvggL YnexGycd12sWL7tX51SE6mA KZdOpS7NGOmtkA7Fyo6VFRd MHZwmXKcX788m6yea8rnngL ojNJ3uKmaCUHhkfddCtY2ET iiHQBnmditFTb9NYpkXNUqd NX7CBHmoFOvR4JbGXQxMK2h nir0LFN6AApnDKQtMbY1KFM zpMUeBONmdFhcYFnhr098YL P0WbYiXQMtzyEpxRnioV7cQ nMyMCBNaXRyYWwgdmFsdmVc cGFyfQ== GROSS DESCRIPTION o7iugPTwOWHrwFUfTgDiGSE (test code = 3366) jPMHfa8izQISlxKUgUtPiEy NcZnRuYmpcdWMxXGRlZmYwe 9udl475kEYkh8iqETXlWoB6 fIDfGDVoqRRiP374EOQnGXo iz1wis3YjTXRuzQAdt0I7OX EMbltzmKn8gAuvD81ax7Q7C mrpZ3wrKMSlDRZzG2MyZB0c BYAxRup8UWW6VHH5FJPeRXC bO0VuMO7cPOLghJRfAYi5z3 ifzMtpNJQnNLR3w7ueXAufp gHjGR5iij6ajRt6f0qsuuVr KZKaHVAllAFDSCZpB0QseYx kAg6ayUu4zFejSefpJAU8Tg f2KK4yub16uoi7kQqyXIUeb fjqWfZ3KWsvQVDpqbogAXr5 MFxtYXJnbDcyMFxtYXJncjc yMFxtYXJndDcyMFxtYXJnYj heDTngQOWoVJC1AVfos041Q OT8JAvur2hao7sdcLGdSyw5 JUGcHqBwQhbzHEvef9Yfp9d vIURtmx0dAUZ4fNVumGpqz3 W9bIDtCIXkiEGrthCtUGFbR cB5CPneSH9vch39GCUoTLD2 em9mbHQomJqhybPmvZIoSHd kE7BfKLDye911BZGgL0PsNS Qxf8J7whRpWjItYKQyjFN9v tD5RDRjHNu8dMWuxwL2wvEg kMWmS7vcbS01FaWswTQqI2Z uuD01CcSfoQUpP1YaeE15Dn RimPHnG7QgmS41SwYdyHLxC HWhlTJgGp0xcJAghLJqh5Tq dIIwYShjA92ne319UFAjxjH zW9jpnMAjcsbyzPQulrevLM omfpP2DHHqCJVxIErrGZFfX GZzMjBcbGFuZzEwMzNcaGlj rEiwDDvcTcIgOIAfZXrvR8t cZjBcZnMyMCBBLiAgUmVjZW s7JHXfhK3zKm3gyWFugK8fg XNjVQfhLSU0lHCzWOJbMZOq HCBeGK41D0IrsI3ab5SoUWR kf62jAX3gMAEhbKVlCGvvcy FsdmUgbWFzcyIgaXMgYSAxL pXaC17xtG9tgBJaK9PwCGN8 IDAuMyBjbSBpbiBkaWFtZXR nuxO1QP0vcCifwnA9kMXhzH KkWPqqzZRaXSrmJMZ2Hz6cj DOzUIOzufK5r2RnDEopTVMu y1EfpJCuCDLxEgpjVEGvxAW yPQOtfmPzwEbykF6pDsNyVh MyNFxwbGFpblxmMVxmczIwX IkihrjbYNTlPLpaW1yzYcWn JQFrvUxpRYzth5LmZZPpVRJ qYuZlTWIsKWKii3qcTR05KD xwbGFpblxmMFxmczIwXGxhb zkjGRAbEMjmX0vcXkGcLEOy cXfbZCsro0WfFFLcYJNqDfN ccGFyfQ== MICROSCOPIC g0vxbXQiTDVagSM9GsTkVMX DESCRIPTION (test code gm8qux3QyvQYwtGYsNRhdmC = 3371) UvbvDeeu95vPK2sX05ZG1mN PXaQsQ5QPCiklI4Xyn6GGPk YWOpdIUgR865s4bvq6jarkY ngGR1yGzxPFMwygunZeZ1RJ ntWHZnirgxGKj3VIcyWTErn QQ8FGUmtDAxN0KoMQYcBC6u wrd7XAD0XSsmVEKeTgE5QTO rpOKgIUYzrVjaUSirm618PW M3CpSsQQPgeqZkxSzvqM9cO eXiDEYTMKKds4KrUGWdZKRc cn0= SPECIAL STUDIES (test j8qysLPnNGDrbFE2UaFoLBI code = 3376) ig3gtm5OjaXOdjEPrMFgpyH RzwcPxna47gHF8uV22SK6lJ RVdIkU4FAKkrcP8Zfc5BNBq GEXwuYYoL591OPWaJJJymWi fyzb3mT47NWUcyS8ctKKtBR puoqCsBCpwenKfbuZgBbe4J HF4jDciXOIocuqhQbP4XGtx FQIkvknpOWw8NFqjQFDwyTI 3NGOpaLZkH4EmMQFaJH6zqm w1AZO0XDtqYGNpBaE6EMWnf VRdHNRogHmrGJgfi344UTU5 IkRkDRCmllJevUjrwD3eZmS cZnMyMlxjZjEgVGhlIGludG QtoRJpxNC1aX9oBE6jHYWtk VAxR2NzMOZsuqUezQOpAFT5 bGSwwMNpGE5gFZlzhEFol9g uc1LzT5jveZngfSZ7HP5wWH AgFOQoMYkvf9AqfM2tGfhcW PDcM7PeAULCD6PFJIFzLDBS Oc7EQcBRErUbMdCHFr7kNXi NUywgQUZCXHBhclxwYXJkXG CwWSKPv931oe2yJNMigAQhb tPUjVCinG3bUDpxWXvrHCdq dXRpWJwjx2yhTXEki7c0iBZ gNCFxxhAqs6ocPXxkstCzZL RhvZCjePIeVDXxb62kLTqei VcuaDczKYIgp7SrlQnog7Tv YeStAFuip8KbC21zkEPneND joNhfKKFeiiOzSFDwf97we3 kqSIVeVzD4kVVryAR4xAWth ZEtw6MhaBonAJXki0oxXKTu lb3yxwbmfRXbp0HwpO0dxkq mCLwfiLScmoEpSUAco3b4rZ LlNJDoQTXrATnxlFo6ZBDfc 132nn0ffcS7hZZiYZL5UWcg YWJsZSBhcmUgZXZhbHVhdGV rBWJnfpIdRUHinlQHrD17we 5cmYK3d3NlUB6yy0HfuAQ7K WNobmljYWwgdGVzdGluZyB3 FRYrjVApQp3wwQXvLMO5XPW duDfwlkLXiG7jCUVmRFs5ST VeSzZlIwtebbXONVMxU6JbC LCbuiJwymevBNA9vT1cl0f5 PLciSc8sDCOaciwth3urlfM kwYMcl7EpICDlsvUnk7PaQF HymoTgkGEkQMOigdXoei0uv vAhAVXoVJDnT0CmefucrYaz ewJ7DVOfKRGwyWOdcNibLDA hXIh0EJypmyJtu1HnVoQjqa GotRUipfAiFO5pAIXrfPPtr qHsWNV8WITcAUFKRjRnHDEy l7MwNZ7wXJPagHhkYFPkwD4 ol8ToXBMzp41tURTwBZSUXY EgaGFzIGRldGVybWluZWQgd NgkxNOukJMnZHBjMLIdGG8f BPZnixAhqPIfd0ZgrFJqxcS qp0JlsmSuWCWfFFX0VoANzG GwcPRdfNDtpuR4s3WkGVCvc vVgjSkwiXTvdJMehOYmd6Pc gg2kJBLfu3rwzOjcTK6xgDJ iZSByZWdhcmRlZCBhcyBpbn Fuk5IuI8L5vH1fMQwno1WtA f7jSUEya7XtuwXrQwTNfXiv TUkyKe2mRYNdzqjmjOQzN1O ydGlmaWVkIHVuZGVyIHRoZS HFdBrnaVGlaUNWAVGhnxR9y 9R4OEdntICxsgSjDV75HGGs GQ5azOJkiKWbw8ApPJz0IHA oS4rZXA15UPqcSFCxhXIrvK spfGWmORYpJDVvsjKbsd8xu IrxoMWma01stCQ1qPM3BDAh xG5sA9DaRPkfGq6dBQXugyb ndLChzWzbIu0lvUGyxT== Gross assessment was [facility] performed at ([place], code = 2777) Department of Pathology, [address] [place] [address], Technical component [facility] was performed at ([place], code = 2778) Department of Pathology, [address] [place] [id number], Professional component [facility] was performed at ([place], code = 2779) Department of Pathology, [address] [place], [place] [id number], [facility] [id number] 15:29:08 Test Item Value Reference Range Interpretation Comments Case Report (test code Surgical Pathology = 104) Report Case: [id number] Authorizing Provider: Logan Russo MD Collected: 06/18/2021 11:41 AM Ordering Location: [facility] Received: 06/19/2021 03:44 PM PERIOPERATIVE SERVICES Pathologist: Tom Paige MD Specimen: Mass, MITRAL VALVE MASS- for MICROBIOLOGY then pls send to Pathology DIAGNOSIS (test code = [id number] 3220) uZzEwMzNcZnRuYmpcdWMxIH tccnRmMVxlcGljOTYwMVxhb pLsOEMqeIQrV0VvmexrCLeu AM9ePJ7jhVgtiVEwsZJlUSA oDrHtc3rvy721xEIky1zwIB NVltccfZv8nTwaJ79uh1K1O aziZ62czVEaOQP3SWVqVKOi xADkKNHvJUT6DRCskVUlV7x xHDLoNC4nzhkmYOuwYDygPV WpbTA2TLZnhUNeV1OuMEAmT DfjFPPuyzk1GnAeSo2ipVXi eTcyMFxwYXJkXHBsYWluXGZ jSoVsAG1qQWMARxDdWV6EJB JBTCBWQUxWRSwgREVCUklER G5YWdUcNP0GAPXMEWQMDzlz cGFyIEZJQlJJTiwgQUNVVEU dLO4IDWJFVOVZO1PNSUDIO7 ELB7JGYNAOVsYzM9NPX4aAZ BBEYChOGb5iyIYtOEVHYDXA KQuxM8JMOE2NZXFHVeLJEtV DR1GGQ1OCDO0ST2NJLJEUIc UEBW8QKB5VAYSCWBFZIyMTV ALLJhENK0aTW2fjHKuyUUOf L88BJdBVMMHAK86nX3nQALH BRWGUO0LPQ9oFC0zFENhpZ4 DYNHsTCvXOSbKHHTCIYD5XE aGUJS6sCNGhye37UTM0WmZo z8G3FRF3NXDpLGXxb6lbIFD mbGFuZzEwMzNcZnRuYmpcdW AaEXDdZcBfa1awm849aKJea 9bgYBRxBxP9pRLwEFXjbSMy Z367VROiHDrky7pdc1QlGNC sdYVlr4R0LSWIlgdetSh0tW mxF99wu5B5ZvxfQ5pyVCLpM DHjL6VeZX2iHQZtRto6EYS7 DDZ5PGOjZLTuW5KiYK1kAMD qzGGnXOf8x1ggfAbsLXHrZT J6e4eaOUjljmGtVN2set8ct He0w9iarvXqPVVdGYUjvFVJ QLLdU0TknMynSf9xwLk7kVh fJdvdKLW8Mqn3OT5cns64su n1kXlvKYVfkwydJmU0ZWrrJ MIpxephOIq6VLujKBPokTB1 FHJftVBlX0SoBBIeVS8xzfm 4BQQ6EEfmCLWzWmH8XHJutZ BiYYTdvTebTSeqs276LRG7H rQkZL0jK8Lha4N1cR0skCTq HHLhyIBrOmBvWWYrfj8jfTR fUMbea8HuPUM4ekT3tZEeuN AoABWsPtP2UTanUT6ylr90R HDbIRL0bx1udXMywQrqjeVc nGKkDHaaN0UcLNRgy090TKT jR1HeJTClc7T6crQyPvMxGT VopCD2fmW5GYSkUX5pcdgjo 5gyMDqqVDooNPFrabT9ruE3 DARqdQNmF8IvuJ5zNAYwIU8 nqnice0wxQLV6GFckJIXpHN F9GoUlEANua8Fdsbt5MsBsb 6XqjYNtIVvlK73vt770JZJd xyOnT7fyhMDrnjepgGWhkmx fVSlrzzV7JQAeINpcyttnKM KoCGmyK9ylXbToOMMmwTijY Pmxz5SmTGKqXTUkNmDnoDIi HYWyJyk4YDDbbSMyYWMfOtX qD6asntkzRsPCIFHad4jgC8 iygTVImLHzO7UzGOlsyxWkJ YlbORoxToGwVSXvAZ14QPC8 FHAgto52 CPT Code(s) (test code v4ivkHRdXHKhxBH1LtXnKUG = 3357) og5ilx9EybWBqtTJdWEbohH WsnkHbiy87qTT5sV33PA9bE UJoNnL3RWHadaV7Fap9EKLj MAZrrOUeY903t0cmq5bujuV nbMH6wFcfQMLtduxnSxR9OO apMQQbayutQLk1VDzuKCIyq PI8SECvrQGsE9FvYOFlJS2z poz2SQP2OUwwILKqOjQ7NSX ptWFmGCBuiShuDNvha322XQ A3SfJyYFXduoPioUfpxA7aY bIeUMJ9FNBeHQjyPHjxLGQV M2zkING6 CLINICAL HISTORY (test q3itcWZfTYGyrRS6FvYuTQS code = 3356) zk0yzi5KboIBgrFNaYXcmtU TlwsUajd65bJL6sC20VT8rZ PVgYcW9FPBooyI0Gfs9WHUj IRBwlFSjF820c2zrf9ujkyQ cxVO6xPlbKTFczxziTiH5NO veSMQrjootLVx6VIqsGLEor NU5MZYkhARyP2QjNCLaRW1p ayo4UZO4QAibLMHgIuI5UZV wkMDxUDAcbEvkYKihq443VE T1CbVxBQYzwvTvaEomyS8tS zVnULZDmpFaE0EwYOv5fANc cGFyfQ== SPECIMEN SOURCE (test j6mmsYXvJYMvkRM9MbAfGWX code = 3377) aw6vln7RbsJUjzCUvWJqrvT TxtjLndz78uXC2oR11NR5eG ESrRrO2NXZgdrK7Wxv3AJHg TOHqeMJkZ851i4xeg3ieanE qcPY8iYxiSWDpspirZeI2UO nfMLSfeonoDSj2PByiMENrt HR1OVPfmHOkU1RcYROfOS4v gyp0MTN9IWanEMIbKyT2DSS naPEuBBPuqZhsZAeev955UH H7CnWhCBQbebJnjRltoQ8zS nMyMCBNaXRyYWwgdmFsdmVc cGFyfQ== GROSS DESCRIPTION k4otcEBqMNLwkHSdJeOtQHD (test code = 3366) yEDQeb7orCYKocHOzDpKlAp NcZnRuYmpcdWMxXGRlZmYwe 3hgu548nBUnt1flMTXgKfF4 jXLhILTasQMnV776UCHwNKk ae0oao2IjVJZynCQka7X8MX VPhunhaUa8lBdyQ18ix7S7U ajdF3pqINBvOCSnR5DuAB5s LZMuNut9DWC2FYM7NDKwLJT cO6NzPK5cTEJpkWHlWQc3a0 rilWzfGIYwIJB1a5krMQdmj hZoCH5seq4uxRl7c9ccxbHe GYRrOLMvwAQQTEBsG0AedQx rXm0ptAy8yBehXypfJOG4Ua k4OK6bbc35qjz6zVlfZQWsx kzlYmC4RQikHFQjpswbOPm8 MFxtYXJnbDcyMFxtYXJncjc yMFxtYXJndDcyMFxtYXJnYj hzWTulNVCjYKF0FGxzt253S BH6XZqhf1qik6egsFQxKop2 BFWyTdTnBrrjHErkj6Qmu2l rIOCteq4kNSY0nGAkxTemb5 G2yGFqLKVpbPGlalHuKLLjK vK9DMsfMQ9voi92JNEqRIZ5 iw1ojICblHylrmAauFLrWUy xD8JaEKVky774ZMHcG2XqCW Dkh9D0plZeQzOtJRMxwIM7p wL4UBFfUJd5gUQgfaX6vfGy cAHwV8pxiY95LdTiiWMeC6M coL23HmBulRBqQ5RwiP05No RrgIGqJ0UdnK24CiRdaUOhH RQbnCUjIq2goQMzaYSsy9Gq eHPeDMzdB21od881NNJdyvQ hH6hfzLTaxqnhcPAzeahvYJ gjbfH8OEKjUMIvDGcpWCNyZ GZzMjBcbGFuZzEwMzNcaGlj hEocMStqFjXlAAGaCGqfA0c cZjBcZnMyMCBBLiAgUmVjZW w6IXEtxD4vWy8dcAEtpD0gz HYwBLfeLMS0gLRgMYAsDLSv IKXvNS86F2JivG3de0SoLGT xe45eXI6lVNGanMBqMJbnsd FsdmUgbWFzcyIgaXMgYSAxL cQtW29kcJ1klFNvD8NePUH5 IDAuMyBjbSBpbiBkaWFtZXR akrO0LU5moBppuyL4ePJloH QzDMgyuJHtEJgfIOX2Ee7me NOaPIWxymU3k9WdFPjsBIKz h4TniOZdVCRyElovCLOzoGR lUAVknzKsrXvcgN6aWoRzCi MyNFxwbGFpblxmMVxmczIwX PsfsukqWRSxNPpjZ3jwDkXp LMUyhIngEZevc7QmIGLyANW hBdDwSQQqGAIpe2qxRX50VX xwbGFpblxmMFxmczIwXGxhb gavKUUhMJgtA7rcWcXrAUSe wLreLShbh5NtIGUbYIPdNgL ccGFyfQ== MICROSCOPIC h1sugYHbGQDinCZ8OpZtYLU DESCRIPTION (test code zw1daq7EniLRbjXZcEGbgaW = 3371) HbtcUncm99lSY7oH87RI7kY DWoTqQ2XIZielE0Axl9CCJa VXPlsWRvA885f0hfh7uktaO iqBL5bOcsHLBvfcdcWpR8IW rgUEXrkbpjORa9MYirCETtw MS2NTTgfXXaG4LtDMShUQ9b ced9LTG2INccTTTwGmK2PHP jbDHyGPAgqEbdIXmfo798HK J4VyVkQPFwpgYdlIohlM4uI oTrQKWKYIZoo3SpFGBgAVUp cn0= SPECIAL STUDIES (test i5vbiEFtCUTqgRR1CsYbSWN code = 3376) yx7nin8OwyQZwaQLnHKkjjO SjwaCxxd28tLV6rF16WZ8nN QAaPrT0VQTpswS8Ttt7OOLp GYOlzCAzG978OGOmFTIlsUf jotp0sZ71UVQhbC6xrQIbBR ygtpSaXJbvkqPeggOwYmj1U MY7iOajCLHbsbqjNsO1DCzb UWQariwfGAs5UQgmDZHcwRH 6WVHnaFAcY7IeMQOuPC0afe y0CIF9NUeoUNRbOwF8OMPbr WBzLLTxuHedXBwrb622XMB8 DpJkEZQlezXmjPeefA5bQkV cZnMyMlxjZjEgVGhlIGludG YhkQGmvFO4pC4oHW0qXHTij JInP1SuOUCkyqUohJJbDEP9 kGOovLCeTC0fDUjsuRHes9i qo4IwU0ztyPjnrXI7OS1dZF GcXNGrZIkxe5LtzC0tCeftT YGbT5GpRYCIW6XMGMWdBUFQ Km8UGbKDNkUqNnKUEi5eSHo NUywgQUZCXHBhclxwYXJkXG VdVTVAx826lf6fKBXsfTOjp zYUwFBdfY4aTQmjKMfuQIcb eRXbVJbvj6mtEHHwr0j5sGN yXEHkgiRvj1xzMRuqvfIvHV NdlPJinINzIVXzi28wMCwfo BltdGmtAMCyw2ObmSjjv4Ae TnPyXYoog0CyB73ifAHjdCN dxWzqIRMdrqMlOSHqb52hw7 fbAXMwJqJ8yXSmhXB5uLEtq BRwh5MsoJkdDKCtb6ohYAUh ra1nbxcemBGtg1IbvT6rxij zPSbmvRWimnMkOPJsp4a0qD AxGJKiVHEeEAccuSi0TOFel 310ue5xqiY1gAFuUYV1RIkc YWJsZSBhcmUgZXZhbHVhdGV wSVSbjsMxHRVagnXDrT25yz 7dwZA0b0VvAL4ay8XiqWD9E WNobmljYWwgdGVzdGluZyB3 QLTcfZUbZv7ytPJcZJL3AXN tfIyidiVVnM8rHNQoBEr6ON WgWoWsJbrdqiMQOXKtV8EiC DJnlvRdtcyxXLM0tD0yw9u8 JPldWt4wHBKqesmxr2kgzwA ryFFfm8VyDYWgglFce1LdMR NfdxPmpXPjCUMspbUgdc0jd sElHCIkQSGoR2CaxkqegJps dzJ3ZZEbZIFmjAOgnPufLDU pSDi3NLjrjjGgu6IzQdWchr IebYMoleMmBB8fLBNwcTWms nKrRYA9WPUoWAESHlPzMZZf h3NxAH4aQFCenJynGHIzyK9 au5DcHMBaa47nUUPbAWNTGQ EgaGFzIGRldGVybWluZWQgd YwnxAFcrKGvMKMqSSAmJT3h EDThdkDqpARik5KzuBVpdpN ck7FmrrWcZXHlQOJ3QeXOgR OxnYFwzQBoraO5b4ImUXMke bGbsRifaOPsuLCikAMmu0Ou an6jGQGik5figBxqJD5prQM iZSByZWdhcmRlZCBhcyBpbn Rzo1JfH9D1mC7dTEfmt8XaT t9pXZSbw1EoywKwJgHTsLfw CAvsGn2zIOMpbdpspCBzM3Q ydGlmaWVkIHVuZGVyIHRoZS YJgAizbKJyqMPGDEJqepZ8d 8Y3QHuscIUgrwAcWJ54ICDc FW9jaGFplWBbs8HtKNm4TNO aH3rUQK37XApgXSKwlPVqxX zucYJlTYJlWNPhxyXzrs0dp XhiaKBjv25ukFX4lHG7IHSv cV3kP7EjAJseNv6hBYOyicp xbPGmkNdlQr8mrYJqrY== Gross assessment was [facility] performed at ([place], code = 2777) Department of Pathology, [address] [place], [place] [id number], Technical component [facility] was performed at ([place], code = 2778) Department of Pathology, [address] [place] [id number], Professional component [facility] was performed at ([place], code = 2779) Department of Pathology, [address] [place] [address], [facility] [id number] 15:29:08 Test Item Value Reference Range Interpretation Comments Case Report (test code Surgical Pathology = 104) Report Case: [id number] Authorizing Provider: Logan Russo MD Collected: 06/18/2021 11:41 AM Ordering Location: [facility] Received: 06/19/2021 03:44 PM PERIOPERATIVE SERVICES Pathologist: Tom Paige MD Specimen: Mass, MITRAL VALVE MASS- for MICROBIOLOGY then pls send to Pathology DIAGNOSIS (test code = [id number] 3220) uZzEwMzNcZnRuYmpcdWMxIH tccnRmMVxlcGljOTYwMVxhb nDiSZThjBIsJ5QuhakgERpx GG5uCF6iaNtpdJKuqCQuZXJ pBlNwa4sbu467mSJes6hkOH BOifimpRw6aMqqD23ls7Q1W qhcY51ksGOyOAY5LUWnTSMk eUAmPNYcNTM6KWXazXByE0n bCUYqTS0tnkuqWYtkZLatXI EurJB9PJQobXOhW1TjTXGdR NyvQRHavwa5OyTgYj6tdECf eTcyMFxwYXJkXHBsYWluXGZ eLyCeBT9uJPYBCrHeJV6CQE JBTCBWQUxWRSwgREVCUklER E9BZtVeJC6ZRQCYHXHFDqnc cGFyIEZJQlJJTiwgQUNVVEU uQE0POKJUIGOWH9LAKOXFK8 XGF3XLBMACErAnZ6UMU5lEY FBHEZuXDj1xuQFnQPGUTEIZ VKkdM3KAET8SSNQNSoSSPmR LX6RGL6RBRM3LR2BNKLPQVn QPWF3ADO3LRESFCIVJUrEAD HATOoARO2gTW3viYHpcHCBk B28RIcHFSRMBM83cM4rVNYM AYNLDL0SQC5lTF3sURHpgM0 VOQAhERhPRAsSHWMPZJU5NH nMGPT7jIVUibe02VWS5RtBf s4Z1YOW6CANdUUKzb8rxBYX mbGFuZzEwMzNcZnRuYmpcdW ZxEYZiHdSxf3glv494pWPpa 8yoVOSoNuY3hXCgMTQpeJDz M900TYMqOVohw5tcc2VvCDB jgMAbp4K9UASIslzasXc7eB yaF74wu5O9QusqG3aiWJOuW CQaX1IvFE3mOYGaBim3IVL5 DHQ7XSHaKFIpN8PtIA5dWGG zaBCoLAd1g8mxaHtiIPBnFS J3n4ppDCorumQqQO1ulh4kp Vy3x0xafcQsGZJjGVYpfUKN RVAiM1SfhUfsOc5heJb2wZw aDjgxJFN3Swy5DE6umk41xm v3wEdzNZCzwedvUfO7TNcrV FTvpdsaQXj7WCgqBEKxkUM8 QARtyHGnV5EuUFVrID6tiob 9UWU5SIhiSDRdTsL9MVLpzW CyBSNxlEfvDHiqi715HPG9N nFwJJ1yO4Coz8S7tB2soZVu VWTvuBInZwVhUBKqqm3xuZY aPMecz8CkOLN7xmB1kVSyzS DuFPNfAfI7SIdpGE1qpp45S XCaHOH8ip9neLIbjCzsceMg hMEoTZxvK4MxYRNym278RPK hN6RrQUEcb6F6gfZgLjSgID PqaWT6ukF5LPGoQZ7dtyzbw 9ieNRogAVuwONPojwJ3tzK4 JJJvdIMeZ0NdwC6gYCVlIU6 aopbcb0thCLL7SRrmLAImXL T2OvCbFKTzs4Lggla2XxEkm 3EuxWMbSPaoQ02oq357GRJn krOuM4fwxQLcqqpnmEQrwks ySTpvrcK7DLVpFOcizcseQR RtIHgrU3qiKdLeIDMpcOazU Otbv0UiPKWzYTTuHlVluNJq ASAeXes5LOTrtDKsFAUlVeM oR8rtorhoUnGWDMSzq3zrE9 fkgJGShNYnX2GjWMjshgCyG PxvHVaoOzLrMCSqPX96VAI2 MJBvga29 CPT Code(s) (test code c9ruiOYpIRLbxKO3YbHiYLM = 3357) bz3kwc2LnlMKceBUaSLyssE PwszHfmw84uQM6oT31LL4bO GDoZsT7BKJbcgY6Hnm2VOZd FFVluUZtC958j2byr0fhljD lvBN1kVekBISbtullVgS7TV oqKNNmxzsaCPo2DSwbPXZkx WL6EPGzdCUaA3NkTAGyRM8a rlq4CPD0XNelGDBgGiG6QZQ pxHUdNXBrjPtiFOcju895UV W1NfSoUVNtybVydQxyzR9fW eCkTNP2MRMzYRgqVXckALYW U4vpIRD5 CLINICAL HISTORY (test z9yveFQnUEYraPN5VgAnUHC code = 3356) nq7xbm8KabUXfdJNeSYwueS OmbnHihj08tXR1lD97ZK8kJ MNrMvR5HOQgncI2Dea9QAJg AXUidSBgL248i5ztb3yrzpD onPM6aIirKIJpwapvCsY9GM vsGNZhitrkZWl3DEluFTDvy LE4OJLkiHRvU9KuUOWhVP5a mik3ZHJ6QIroOQEgTvM7WBX xgXGwJAQglJwcJExcn626CL L0NdLzQJWpupKqaPrahS4tI vTvPVLCgpWoG2GbJWd4xDMv cGFyfQ== SPECIMEN SOURCE (test k1bunTLdLISphLB8QcDaPWF code = 3377) iy3rlw0QcbPNsbSNrRKgpaM UntgOwib82nOD9oB19AL5mP EBhGkM9JGZdesI4Avv8SKPn ZRSdwCLhN423f6gyy5mmqvJ lzHD5oXmgYHSulcidMfQ8TQ ueBYRimecnFWf5IRbpDAJqr DO3SMLouHBlY0IlHXSrCU7p ezx9NWC5HBvrXLGmEmV9DWH cdNDpWKWhmKpsJQayc846KG E6McEzWFTucfEotFyaoV1cC nMyMCBNaXRyYWwgdmFsdmVc cGFyfQ== GROSS DESCRIPTION q4apzHOxIDTwnYRrGgDzHOO (test code = 3366) zXDStl6fxZVGsdSDwGzQbGa NcZnRuYmpcdWMxXGRlZmYwe 4swf638fDGiq1hxIEKjHcC8 uXHhAXFnoUXwI071MFOuAGn ut9ufl7EmIQElyJYum5I1CF MXrnymbGy5lDjbD70zk7Q3I stlT3ooBWSbUIUuJ8QmAP8u TQWyJgw5AMT1AWH3UGCuVER cR6VvUA2sKDBbcYXfEQd7b2 dnwYbrMFAmHYR0s2ksTMwnt cGsFE4nmw4raRm6d7lvvhQp GLVnVRXnfUDQQMMoT6YtsOq cHp4abLk5lHawKucyNKO5Yo g1NA3gqr40vup7uAwjLDEsn oyuEdO7NSpgOUEduabpWOj7 MFxtYXJnbDcyMFxtYXJncjc yMFxtYXJndDcyMFxtYXJnYj tbTWzmULIgOYQ0TJwow308O AQ3AIdrv6cld4wbmWVmEca2 JRFdFkDiXwwmCAzdo1Sgx2g rXGEbwq2bEOJ9nYTxvFaka2 M3dWSzKKCunFOdjnYdIHMoN rO7NJefLP2bfm92LFQiTNQ8 zw3swOFufXihwzTxeFFaSBb vZ0YxGJXni118CPUgA8XjSZ Rbi3C6nkEcWsPiSAMieWF7d mE5QGErWLh3bZMmkzL2leTj pWZbJ9jlmT47XoBipDPdX7K ytE90ZqVznIIvF8ZscP63Sz McxMObV5RagO55EvFabYHbN ZDkjWKbFv6eyJGyhQUwh4Ej jKXuYUogG35jm205RGUuskS nP7flwDIybuchbQNjbhnvDZ hipfS7BOHoGVUwVWywFVRfS GZzMjBcbGFuZzEwMzNcaGlj hIrwGGgfMiFqISWaSAubW0d cZjBcZnMyMCBBLiAgUmVjZW j9UMWfkQ7aHv1frDEnsP7zs AKlMGjiSDM2rJOjRYWvTYEi YBAaDB71P7QxdF3bp8RtHZX pm68iLX7wTXFnuPPbFPxqbi FsdmUgbWFzcyIgaXMgYSAxL nCtF33wmP9cfQBaJ2YfMZE9 IDAuMyBjbSBpbiBkaWFtZXR kjhD0VM5bzDirzvU1sJQqdQ QrALjoaJMnAQapHLA2Vr2ld NYtHMWhbxH4a4HiWTfcWOMk h3FrmKKjIMSdDqhqFEJerGG iRNAjnyEymMywzT3dJgIlRc MyNFxwbGFpblxmMVxmczIwX KxyhnejCYEeVVrpP5smMiZr JNAreHzjMQpgg7VqXMQvSKQ cPbDqBJQdNZAkd0aqJM04TT xwbGFpblxmMFxmczIwXGxhb gwdVZOpEJloW3lrUjQmBGXa bPcqKUugp0UhARMuOJGcXzQ ccGFyfQ== MICROSCOPIC g9hvsHNrWAXazWU5JoVkBRF DESCRIPTION (test code om7wqi2XlzCWqhXJnONuamK = 3371) CmflUloc75tXZ5fP58KL6nL DVeMuT1NVQiszP4Pvi0XAKh JCUucAKaE051h8jsr2emngI htVB2iVuqETLxcsqtFhS5RJ gqMQCvnhybLIy4NLxhRUIkm AA2GAUsnPJyI5RaEKZbSK4d bap3ETJ7EGebISQdCtI1CGZ riYLbHRLpjHzmZRnte103SZ H2CmSbOGVlqwIhaDcmjD0rB nLiWVNPSVVft3FpXXOnVXDi cn0= SPECIAL STUDIES (test o9kbhXFeYXPigKJ2MmQdRIM code = 3376) bo3dzh6NwdVGxhOKeVYeniV QsjfVqtn90rBW4fU28UE4xF JCbKfU7JGQjxaT9Elf0ZDZj CPUezSOiT949LCKdMFJkfQd keie2oE32AGKveL7fqIHrHL zdarBfYQyifiVvpvGfNtw9L VS0pLrpFGQlqfehKsA6LMys BKFflmyyOWo1NFmdYPHaaQN 8OBEapHBdR2VkJODeZH4oqb h3RYW8IFcgTFUuImH7GMHqg ZQkYNKolNxbUGjog931RQK2 QtOtWCZwtlAepRzvyN6fUmJ cZnMyMlxjZjEgVGhlIGludG FzgHYfmHT8lB0tBO7gGDZfe IBoG1UoCNXpofZueBOdVII3 gREnqGJqUW3yUHxwzWVwu5g gh7MwU0tqpUrrhVF9VI2nLM GpPLIlQPige7TeoL0bLvgcN WSvA6TsPHZRC8RJAGYxJRKO An9FEaKMGlBrSbJLWu8tDDk NUywgQUZCXHBhclxwYXJkXG PhFMQKc324fy5hGHIwuXXeu mUBcWGvaY9nKVynYLwiNThj yWOzUXcqa5brLIGeb1e3wCH kPHAtxpSck3sgKZekijNpPT CrzFTafGSsJNVbq26fJWozr DukhPnyUEJbk8GghSinu1Dw OsBhUFigb6GqI19vrRFsvYH fzVmzZHJyrhLvHKNmg77wl2 llSXAzBfE8mWIfqWJ3eWLig SFiz9NxxXvnSRYrn8pyTIXs di9ygcmbgALwk0MknH6vwky yUPhtlXLtluTmRULrm3v7oW NxKJEjXDWcKFjtxIz4YSPac 003ui7jokU9iDYeOCH9ROnf YWJsZSBhcmUgZXZhbHVhdGV uWSUypxQxBECimpLVsN77yk 5twJT5q5LdMU3en9QgtGE1H WNobmljYWwgdGVzdGluZyB3 ISPaiEKdEh9fyVCnVYA3BPN nmEholmLZsG5fLUQcNFl9QE RkLnMyWrldowPOBFFgB3SqB ZTrgqAhcrxhCZF4jN9af8n7 HJtaOc1pUTNvvgpqc7ohcxQ mwTHel6TjDJBdxoExr7TkHK NnifYwaAHsUNFpmmEgwr7ey yUeJJNnWKAaE9ArcnrlmCgi zcT0PDPcJSGlgLRxoWhqJMT iDPo3OEtcnwVxa8FpYlSuvk AbfMCfdcQaMQ4uMSUkrAPzy qQbDTQ9XGKmBNPTEkNbXOTn y8PlFL0lLQMmyHdaVVGrhJ0 lv4DoNDBqy65kFJLlCLQQXS EgaGFzIGRldGVybWluZWQgd HhriBTeuZVpFNEeYROsKJ3n DVMlqrPzkZHfw6YtmLEheiX qd2EneySwPZVqONW7UyMVdF SwkJZszGYvreV0r1AnDTGdx jWbaPvqsNNcjKOxoDYht0Kp as1aAFOvx6qfoOfzHM6xqQQ iZSByZWdhcmRlZCBhcyBpbn Frf0GdR5O7dA4mHQeos3LdO q3gODEgt1UosdItFfODhZzp MLfbQf2gEKIulozesQKeB6S ydGlmaWVkIHVuZGVyIHRoZS HBhWcfiLQkzSYBSFGsqiW9z 7J3LTwvwXKafqQsFO09RFJf UX4caQAcjGAwz3ZvQWc2MNL rK1yFRV44WFgcRYMjiDFwtZ uwsIRqHBQmZZHugaOmgc5gz EqjgTAne45axXT2aPY2ILVs tK0kM8PdGKebXm5oJFZdplu guVShjFutZm6daSKinZ== Gross assessment was [facility] performed at ([place], code = 2777) Department of Pathology, [address] [place], [place] [id number], Technical component [facility] was performed at ([place], code = 2778) Department of Pathology, [address] [place] [id number], Professional component [facility] was performed at ([place], code = 2779) Department of Pathology, [address] [place] [address], [facility] [id number] 15:29:08 Test Item Value Reference Range Interpretation Comments Case Report (test code Surgical Pathology = 104) Report Case: [id number] Authorizing Provider: Logan Russo MD Collected: 06/18/2021 11:41 AM Ordering Location: [facility] Received: 06/19/2021 03:44 PM PERIOPERATIVE SERVICES Pathologist: Tom Paige MD Specimen: Mass, MITRAL VALVE MASS- for MICROBIOLOGY then pls send to Pathology DIAGNOSIS (test code = q5lbfKZbBBAwj1kgRRKhvSV 3220) uZzEwMzNcZnRuYmpcdWMxIH tccnRmMVxlcGljOTYwMVxhb sXdFXHhhOTgT7XuybavTUes TP8mLB9wnOgtcKWbfVTeEZD tWkXuy8vlr295xIRdn9vjKF JIcwltiIr9lBppU61te1G2H bmgM07atKWaPYB5WLIbCGYb wQGtSOErIMR8UXVljDZrO4j dTMPpSV3ablawSCtqTKucHK CowFX5VZHrtNTrM9QcMPWrT HojOFZoals6GbUaBj1woGQk eTcyMFxwYXJkXHBsYWluXGZ mSbInUM1oQRKMOxSlVN5TSC JBTCBWQUxWRSwgREVCUklER J7YLqQbNC1YMFWSAZRNAika cGFyIEZJQlJJTiwgQUNVVEU vZY2AZDBPITYPI8RBCRRXX7 QZU4OTWZGHFwZdE3MVK1mHW ICPZXsXMh1yoNRhGOJRBAYE BGvrP6HEVN8ULNNSEjAURvT LC7CSA0WSPU4BF0IKIKOUYy JZMA0DSV0OHVTERJTJFuVSK WKSWoUSV9lGF8eiKIuxGRKi B99QXiAWZMEPW75qQ5oLLDW AXVCQM5CYR3mOA3gAKExrX2 KPMGtVNvJWVbENVKWFSO6QJ vYHQT4pQUOkye09XSX5EtVf p8T7QNS8XBTcEENrl3uvKRF mbGFuZzEwMzNcZnRuYmpcdW HnBNFpQkIvh6wud567eFVvm 6cbLRIuNgJ3mDMhNYFfyZLo P819GBXyAFtkx1pef3AgVEY ycQWhj2R3HPQQvswkrZj3qU xfY53yw7N5GeoiF9enAWDwC HBuX2OcIE7aEIGfRni6GBO3 LKT0LOBqTXUwF2PxDV0qKIN dgHNcMYq4r2nhlQouURZwUV N5s2htUDitxdVmXK5gfm7sa Kp6q3nlswRlRECiWRTgeYGT BNSrI5QkiSsvOr1exZn6xRj kBfjqGXY3Rgd9GG6kdi24cd p7vEwfGKXpashvZxM9YDczG XZifvkqZFo7UWiiVUBxfKP8 WUGaoJWkE9MbDUWlWH3qmlt 7RZI7YXkgWCSbVgF1UXEssE SaZHUgcOvpORagd123SOB9L bQlIQ8aB1Klv1V3tK9amXTp CGWlvJAyBxVdNCUzkz4huTI aNTvdu9MjQSM9uoV0wKGivZ CqYAVeVkF2NZfpJS8ndi81P LZgDUO0zq0bhQXwzEyewqWo qOYvLYdyQ9UoOIAad664AEI eY9RuWRAhy0C7atWtSmKtTB YpxSX4lqB7TCPdHQ1wwvdte 0nvDTyhRVejUEXuvgQ4whC8 EFOgrWDoD8CtrS0qVAXeCN4 llyftm6ewGYU7OJfzBDPyJN X7TyJmCYKza6Kauqq0TvUss 1KnpYWnIPyrU66xe225CMNt rtFfC9rjzLOljhadeMCtyur wAGjgbeJ0WRSxLDirtdquBO ZfVGrcM5nkBoUxKNCkjTiiC Btxi7TjHNGfSRYzTgAnsCGp HGXtFsa7TTXdjBHzFDWkVuY rI6zpedvbGgMSBXRpv6grE2 rxmTYZcGFuO3NpZWgzmxXzN UovVHekLrTtLMGwOP09FVX2 WSBvaj42 CPT Code(s) (test code k9eqdYVzOPCbrPS2KoFxFXL = 3357) yh2ufc3BpgNZnzEAeRMgjzF SpxsBbfk95pWV2eI28MZ8nF GQuXpW9IBWjheE3Rme1SUAk HFPqoBDyZ123a5caf7qfpcP qtUF3wHcqVZInmlzqZlK4PY ipIATyulxgTRk3AUzkFDCly QP0QXQibVYqE5SdRJYwQK6y bvc9SJE4TItvPLYtBdQ3JQG shCAvXPUqkJarSFhxh809BL H8QwXbKBJsyaAgtYdtdO1wE dNqREU1FYGhVVorJBazMSHW V7stJMO0 CLINICAL HISTORY (test a2sfeEAkZIIvvYL4VnChWLR code = 3356) nx2fly8ItlWOkaBMmDVzayL QgewSscc32kUR0fL74UA4lA SMhIqB0FEBmygZ6Ksj0XNKt TWFccIZbQ926j6dtp3esdcR teKE2nQweYKTlndndUxR7NG zsZCWyttmjXTf7BPtnWDIqq ZL2WULknHKlD4ZgJZLpKA0n nry0QWB2NZprPRIbUaL2WHE btXXfFUCeoZtkSLstg038HV Q3XmYoAZOtppXegCjjsF6iC sYaJUXRynAhA5NvOOm1vYRk cGFyfQ== SPECIMEN SOURCE (test k1zmrWMqNBHfxSP5WdSyGBE code = 3377) pc3esm1MfmTDvcZUyQRoydO QjoqAawd62tQH1rG16CN3mA CTlLcI2EDEnikK8Ibm8AFOr EITozIFlC595e8dgd5itzcR osZT1aIfbJLNhmwpcXcD6WV rrQIZtdfmmKGg6HTmkWRFev SR1FTZwcJAwF7CsUVXmRK0j mcg2XVP0OQfjWPDjXzE0VXW xsYIeLPFomFnpFFfyb225VL J4NqFaCEFclrDysKgriZ3eL nMyMCBNaXRyYWwgdmFsdmVc cGFyfQ== GROSS DESCRIPTION j3dtgKZwIXEulDPiVaLaABX (test code = 3366) uGJSix2ggOBChmNWdHqQjTf NcZnRuYmpcdWMxXGRlZmYwe 6nym064wGQmf3onHMDfCjT8 fGTpAKHmtNOxJ297HLNiSUq gr2bde5YmTPEkrRJlz4Q8AH NIupjydHy4aSneU47um7J8P nwbE8nlQXLuOHUjI5ZvPQ9a JABaHwg8TCV6NUL2IWDcJAH tJ7YzGS8uGFUrpRHmIYr1b1 iuhArcMNXbIGP9e2feJSrma vZlTN0qfc9svXs2v6lilpEg KEGwYANjlJRTNRLwE9XrhJc cNm9ouHm1xBsqHldkIAD7Xw m3OK6cea77lzb1bLqsKJKbe juqNoZ3BZdmRCQxknkaJYq2 MFxtYXJnbDcyMFxtYXJncjc yMFxtYXJndDcyMFxtYXJnYj xqUXpoVBGmSXH7SDhey006D VR8OGwrz6gex0sedXDaPqe7 YWUpHwXnFodxZWijr8Mia8y vEPXnac6nINX8aZZcgMxmu0 Z1uSEtDRFnbBZpvjSbDSPvO iG2KWgiPI0pqh85GSYvRCT0 vj9uzHCefLiwmnHhpJJaLHo fL7RoMFXqs360LZIfH0JvBO Egq2Q2jjKfFsZwSKBtfLT8x nH3ZQImJRp4iSYvenA5yqXh sFVnV6kzxL04OwOjuCIiI7M mrZ78LfYfxKWbM2OsyD63Ss DsgFHnC9LkaL10OvHasNMaC KZntAPoFn8qjZDeoGBqu9Sm dCWiSPbuG06di568DKVftlI gI9fbxHDyjpfxbEEwblvtBI dpyuG2NFWpOPUzYGmsZYFaK GZzMjBcbGFuZzEwMzNcaGlj hHzfTMvlShTbWRRaSTppE1y cZjBcZnMyMCBBLiAgUmVjZW q5QCMrbX3jIc9thRKnkE8qr FSbEQmaHQZ5iOFuPWLvJUPt TZHbUO34A7PizA0ju6GmTOJ ua91mMW9aGGDgbOPwZPblvh FsdmUgbWFzcyIgaXMgYSAxL dVsN00yxB5ojVZhA1LbPHV0 IDAuMyBjbSBpbiBkaWFtZXR pzsJ6KI3paVexbjE8yUGwdR YjWBhnwHRyMNabKCH7Oh6is DWcPIScdjJ5s0OmTCpyCXSu g8VmrQXcHFAkPbabQCKsaAT oHRBcfcStlJdhzG0dMjJiQf MyNFxwbGFpblxmMVxmczIwX ZlslweuDNWqWBboF4ihPoZr PVZqaPteQTbfa8RuQIYlTYC hMeBrJIKbKEJzl9keLC65PD xwbGFpblxmMFxmczIwXGxhb dkpSJCpBYcpF5xjGsMkSQDj jRmbCUzya0XnNQCnZNWrGdC ccGFyfQ== MICROSCOPIC p5ukeIQtWVZktRC5OaKfNWH DESCRIPTION (test code hd8eem9LjpCZviUEwJEcaeR = 3371) VxmyYpyi25cIJ6fR54LN6rB RRrCpU4CQAryrM1Nzb0SXBx KXUkyNBpL520x7asr2sxauU qcJB7cGqpIWVfcaehWzS5BC vmYULspmqpWQq1XMrfZAKpp XQ2GLLkcBBfY7GsIIFpIX0g vdd9SXG6IOmmRGGaAmC1OLO igFEaLDCdiUpfSAvvr137RH I9BqHdDXIaacOkbXicbZ4nV cOuJENQVMWst4GoRGFnXGWv cn0= SPECIAL STUDIES (test h3jfqJVvIYNymBF8KlDjPTJ code = 3376) ls8wyq4PtfEDreOHeBLezsU EdeoRfvz57bEJ5lK09US5kS KEzNcV8PHMdobQ9Ivu5SXZz PEMvwCUxK660SYUxXNUcdDn wjsn1xJ08EQZsqR0zvYGcPB smhnKxPFyxupOvmxIqGfy6O FY0vUjhRXJcoglfHtM1ELfy DARvlvlfSYc1YHnoOFYodDF 4OCEfwHUtS4RyWPGqIV4ffd v2PTO5SZbjEDPnFcQ3TFAlp KRsBTAqnFodGFgiu763MAL0 TuZvLBAldfFswTixxT2mUbU cZnMyMlxjZjEgVGhlIGludG FyfYQhuYJ1rL6fNV3kEHPul FLlH9VhNITmjhRadNNiYFP2 kNScsSWtAT1cJBpcmORdi8i ua2FwE4nclFhlnSS7BN0aOY VkYATlRRffc4PpvP8wVpwlZ VXyW8AgQKZYK5ILZURdSIYC Sm9CXxOLMpRhWyCBYs4vAMz NUywgQUZCXHBhclxwYXJkXG HcZATFy020ry1oSSWujPHvj gEKiPHbhC7iLSstTCobRZyw jMPwJPbxm0vyAQXot8r4qUE zFYDcxnWqz1ngFOdsqeDtKW NdxIHujVAtCCNzq97dHNspw AkwmWmmYLBxg8RxdHmoy5Ge SyNtZNddf4HeO60piUTduAH gbFivAIAtvbHgVJAsb26qp2 sqMCJqGyJ0pMEhpBG2uDSrv KMsm4BekArnOKBkz3cxTCMn hc8kfugcoXJga4AhzX3fwmi uRDhmqTCgtcNvKUWje2n1pK WzHEVgYIVkFIhraNv1KXFju 289bo9hvgE3jUBqOPV3BJam YWJsZSBhcmUgZXZhbHVhdGV zUKEcwuYdLYVxoxCBnT67wo 4aeIL8d7CmQU6qu4BavZB3H WNobmljYWwgdGVzdGluZyB3 SJDviSCuSe4mhNVgNWV2HAK moVevkaSMrI4cQWBsXLa7ZX CmUsZgTviwqbSZZLBbB2BfH KMyavCtippgFWI4zF7bw1h6 DZsmQm2aGRNziwjdk3hhgoX mvOToq6VfWWPygrXsm5ZaHH JcocSfbWSwJJPuhdNcod2ib gLsMRSjBIYrV8SuvwthfUvh hcE8XHCpZITxvGMwbJgxZGU uDFl4YBofkfSwu4SrEzCaic TixQRtjpOgNG7sUTJqpPKcv zDwWTZ4FMEiLWWNVjTgUOMu c8QeAV0pFMKebTekXGFvyW0 kv5ZyMSDnq10oZMQsOXRTUR EgaGFzIGRldGVybWluZWQgd TaxmSLwcJMkYZQrWYXsFY1y SDDgdkGklPArj2WpuNQencS bb5WwwzXgCLJmGKT7ZvFOdX BfyCEjjWFpojC6h6VgDOSuu pPryJnjvNUggTGonTXub4Pi fo8dFAUha7smjTczEU6mrSY iZSByZWdhcmRlZCBhcyBpbn Mkh4ObB0J8fS3iTDtww5JzH f8wUXLeo4MlmnBgUdQIqZrb XZchTp5kPRTshnndxCErO2Z ydGlmaWVkIHVuZGVyIHRoZS RGoWhpvXCimFFPOCYejzN5k 3D8IFsjzJOejeApPM14PJBh AI3dsGJfaJQhg6LwTVo9CIB cZ5jWSP11AEqpVTKopITboT jnmRFxRSRqWNCirbSiks9mg TeffOIxj15vfVH4vGF5YJId lR5cV3PgBOjrOz4bSDPpjlf cxWPdzYbzBn3dzFQteU== Gross assessment was [facility] performed at ([place], code = 2777) Department of Pathology, [address] [place] [id number], Technical component [facility] was performed at ([place], code = 2778) Department of Pathology, [address] [place] [id number], Professional component [facility] was performed at ([place], code = 2779) Department of Pathology, [address] [place] [id number], [facility] [id number] 15:29:08 Test Item Value Reference Range Interpretation Comments Case Report (test code Surgical Pathology = 104) Report Case: [id number] Authorizing Provider: Logan Russo MD Collected: 06/18/2021 11:41 AM Ordering Location: [facility] Received: 06/19/2021 03:44 PM PERIOPERATIVE SERVICES Pathologist: Tom Paige MD Specimen: Mass, MITRAL VALVE MASS- for MICROBIOLOGY then pls send to Pathology DIAGNOSIS (test code = [id number] 3220) uZzEwMzNcZnRuYmpcdWMxIH tccnRmMVxlcGljOTYwMVxhb bCcXFImfEYkH5LxtsgkMZam MY3pZS1qbZuwtZKdbWBzWKQ wYbIfx2xuy665jBExt3goIA BCqoikhHf1cBxmT85xk0R0X lrpS27qeLPbZSO9YKTvTKHl rOKbDWGrRXC0SWTfsVBeX1z kYEMjYS8rwhhbNZpyNZrjQR AadEN5KSQlzEHuH2MbDDOaO ZymLSMaltq4LlWgQh7hwQGp eTcyMFxwYXJkXHBsYWluXGZ iPwZrSX6pPWYUJtFhFI1QLE JBTCBWQUxWRSwgREVCUklER Y8PZjYzVO9QLKADBEGHZvhc cGFyIEZJQlJJTiwgQUNVVEU fJH0PEMURAYIYM3YJSADUE6 SHB4TSZEELQdFvW9QDS7dVD CDYNAsFHl0hrKLaTCCGYWOL BVeeO2RWJA7ZKVZDLlFGRqG TP4EZF8VOKJ0YQ3XYWBNNLy GDWI6QVR7ZJZIQQWXFEcLPJ EQCUpOZG9oDC7ljBGpmXRNd Q21NQzOYTIPGQ27tR1ySMWT DFKOWL8VUE4gMV8sILMikS7 KFEIgSFxCOTeUHTHREUM9EO gBVKX7eYIOdgy09YFE7SoXw o8S9DDG5DHUgVOScm0cxPAZ mbGFuZzEwMzNcZnRuYmpcdW ZqQFNeBcCey5vhu232uLYbj 2gsSXDmYeO7gYJmHVJuhPOw A066YBXvGMqxh8fat6WaOMY vdWJki6R3KZCKzutgeEe0xU epX25wf8K5TdikG2qyRSHhA ULuB0ElCD6bXXBaQro0KXE2 ZJN6CDZfRFMiA4EvVT2pHYW cgUCvRNy2k6ypkCarDOPeOI V8w4tfUNvyhiSwBV5fio2yf Of4u4pdxzRhUHJxUONwaLLG BWHgL9WpvVnlJa8jeZf8yAx qXzpbGXE1Ehi1FB5ieu05tm j5lVxdPINwwhcpIuT3IEkaN MKujyaqFOn1NHayCRYgzDI1 FGJniLIxJ1RbZKKdBW8bexd 0JUC1XLzaYKFwAwK4EHWexU XhKHWdhXwaFAxzq019FIE1T tLyLX8gD0Zaq8N5kG7ajEYz QYQmrXXmVlTlZDYtus0oxFA vIDvcf9XiGPP6epO3fWDlbD NgVRVuPoO2XVsdQZ6fno57B AVqIBV3xi6lgNPkwRkcnbHw fEQxKHbpS4VjONUdl461LUY iC0FtHZCzu1H5kaEwQqVgDI FvyGA2vnN5GFUkGM9jjlezi 5xzBOsxPVxdDUHvqmM0rmE3 JXExaCFjZ6ZiyD7mTOXkIQ6 uqcsjh0jwACA5MUdnRDTlEG X6YjHwOPLnz9Gawwv8VhFgt 2OqkXMhEMbcV11it171ARWd okWxI6cbzLOpijlxfUWmplt ePIhkuhB8DVMbXUohkqhxKA WzUDywP7dmKlZqTYIjtTosF Bzxe0DkZXEdMMFkYpSvrTEo PMPnJtq4KODpiYYlSGMePfU pU1byynsjYeOZBTScs3msA1 vfaEFFlJAdP6CyITucsfMpJ KqpZRbyXqHrFRGgOD60CWQ8 DCTdco52 CPT Code(s) (test code t5mohNPtTGEnmUQ6NoXjVXF = 3357) ne7ynv1WcqVDxoBNbCJdzeH HeogDomu67sXP6mZ40CI1sL RZiVzZ6UAFjsfG9Vhi9RHJf ERIcjJStC554c1ekr0zomiR jmFK7yJtcGGXwvwrpSmQ5XV llGDAemekfZKf6HHidVLCun FH5WRHlmRSqG2WnTXKeLU9d swq7FVE9PRnqKRNnCgZ5GET spWDxKMUdrVjaZVgge203ER K7CjEuUSVlquCrtXdziK3mW lGtZAI2HXUxCWphZUjaMLDX X1enSPC1 CLINICAL HISTORY (test p6ztrLIxQZIvuVX1EqLsAQQ code = 3356) mv9amb3ElsMZsrKQbQIxrzS WmuxCzwz93jRQ5oE48JT3mS PVjTzJ0QEXbyiM1Upy4DGZb DSCxmNMuB559v1yps2iytmG bwYB9jKvxEWGwwghaOjN6XV bpJQWxaebdHPy1RGooRSZri WY8WYUgpMInG5YcIMTsEJ4w oux2WOO0ARhiQRHaSlH9VXV njALqPMJejGxaQQycw368SO D0AkBfPPEjgoCamRfxnF9mJ xYtLWXJdeHeH8BqLBl7rFVp cGFyfQ== SPECIMEN SOURCE (test u2ffqJEnQJUeiAT9WlJlWKL code = 3377) pm4zqw2QumWZkkDXnOJqbsS JgpfUadx23qNM1bM60BB3bT IRbWoT9UUMdagG6Lun1MEIf DRDwvAOlZ435r0vzt2tammZ smCN2yBioWYEwuyqxGeV1NB rkBQIphergZPa5SIjrNNDwa CZ3YIDdhZXiI8PwSPAmNZ8m jaz7GAP4ETttOCTuBhI9GQQ nwVYvAEGgbFutNLhjj443VH J5PvCgJTSbltKnbMfycO0vO nMyMCBNaXRyYWwgdmFsdmVc cGFyfQ== GROSS DESCRIPTION w9asaMDeAHHqgBGvEqEyQEV (test code = 3366) uFABkh5glZJNsaUVzAtWbGe NcZnRuYmpcdWMxXGRlZmYwe 9nkn754uYKhr1oqECAuAnR0 dRGrMFFtvTKzC867VZHoPDp zk7kco5DuHHCjrSVcy5I8LG EErrdbnMw1zKagG92ke3X5F oktF1zaDBSrAALuB1AiZG3n CBNiUmt8MIR4DVX5NVFiRSN kV5FsKV1iMVRndONmCFr8x1 bbiAnpDARgXJP8g0zxFJbwu wGvIF3obc1ydGy0i6yymfPw MUTlZCBoiDZWKRJcN7PdpCs sFx8juGv3sGibOugcIMJ9Ik x8TS3bwo57pmt9yJaqNPGai drlQuV6IVieYFHozcifFLc6 MFxtYXJnbDcyMFxtYXJncjc yMFxtYXJndDcyMFxtYXJnYj ofXElxUCLlIUP0WSafo312F IE4PCowt8voh6izuVMaFfm8 JKVkFtBoLxlqIMkrr1Oig5v jNVAwai6vJGX8rJSchKtnc1 J7pVQrDJFlgUEadlTsNAOzN gD2FViaNL9eex89CEQbQHI6 uf5hrZSogVlrhbXwvONzFMt pC9XcYGCwm254GTTrN8ZxMJ Dmq2N7pkFxFzTdTLTzcJW3d dV6TGGcFJl2sKQpibO2jeEf dEQgN3xyzM40DvGyyUHnO0B veF71VhPcvVBmL1VtnX84Lu NpyGEkK1MalD46HhEadXJpB GYfeMSjKx1caLXwcYFkv3Vw yILqAXrfU59bp935EXCpebI bZ3wpxOKfegsbqXQoeignKW flsqC0KLDjXTJyFNqvOWMjQ GZzMjBcbGFuZzEwMzNcaGlj oQrvHTvyLcVtCTJdQRjcF0g cZjBcZnMyMCBBLiAgUmVjZW h6KSRqsX1kTx9ixVLwtY2gw XCbVOusKCD6lKNbEOIhDXHx KDGkQV49T4HjtY5cd6RfASV sh28kYI3tHAXmlXWbTQoghb FsdmUgbWFzcyIgaXMgYSAxL xDnB64pnS0ngSOpU5LeNPW4 IDAuMyBjbSBpbiBkaWFtZXR xviS6LD4hlWxtwqF7nPIauQ NdVVimqUTyPOdcASZ5St8ev AViBDHitnP3d9KfCPchOMTr w9YtjFTbGKSlZzuwIAZrjDT iFJUjmgZucOdjhS3vOnYpLe MyNFxwbGFpblxmMVxmczIwX XzdkusvDNWnUZioJ5keQcDv JFYtiDftPDjeo7EzHAAzYVX mTuBtTJCjELLsu1cyWU80DK xwbGFpblxmMFxmczIwXGxhb xmmRTIfNUrqN3gzPgLdMUVh qBdwQRgft9XyLKOdHUPpJkR ccGFyfQ== MICROSCOPIC y2akaZRfAFDrjDG3EdUrLTC DESCRIPTION (test code zu0vok5UfdCTlwCFhFJpooI = 3371) FphpBaju65mYZ4mJ09NE8sO NUnSdM6AKCphhN0Xic5IEQc XBYydJTuC040p6qpy8zoxwF zrZX6iSmbFENhijfoFjL7SH nlDXFljrxcXYi2HAqfKWJmp KH6BJRdqSSoA2MoJRNaEL1b yry0JGK4ORlmGDFlWmR6VZV qqMBnXTQolLogUKyba063SG E6BxHiRZVehhHwiYyirM6vJ vZfMKDTJWOhv0ArSJVlEKCh cn0= SPECIAL STUDIES (test n3txnZGvRDDfsZP5CvFgUUE code = 3376) ip1wde0FueJMtqEIiOGdtbQ UznoLato05gXX4gF72KS6mO XErZzO8GEHqrgH6Zre4MPXn OKQzePCqX029ZXRwWQLjoTm awfm4hL37NKXfdO1cbJTbRU aqzxRrMVkuifJyzcKmEtw0Q WF3bGvhDUSlshuiAmQ2OGxl LIDcnpadEJq0YHqhHHSjgFR 9LMOrkPLiN6QmFOKmPK2gne h5NDG5IWwxTUGfWnX7EWTsq HCdDSMpaUfgBTabb986VZY6 LiXhWSWjrzRliZubaR1kFmN cZnMyMlxjZjEgVGhlIGludG TvvOOqsPV1rX7sCI0qFBUjl RRdS4VaAHDyccXvwXLaKTY4 rXKtnPUqWA4xQTwhoQTvb3l rr3LeB7beuLgqtBC5GK4qMK XtOAYdPBvoy4KvyV8tJvcpG ZKyU8VjVKQPA9OSJMQmPXNN Vc4ODtIBSgExTnMDEn9eFDn NUywgQUZCXHBhclxwYXJkXG VxINACf676un7kRKNcjKMim dKLlZWgvP3fYHgvTBuvBTej ePHtVTixc5hoUJCvp8y5dBY mYBXwtlDfj0yqCPwezlGvGB MnaRJbcOEiFAVcb38bQXivt YvblSabZWLwm9VxpUpmd5Jr NwSvDCwaj5HiI08rxRYjiLS ggPalLHYufwKfBOMxw27se8 hhUGWqYjG7kRUejTG1mETgn FJhf8PjaHmgWYDtc4mmWOVb sb7fldnabOLix1ZkmW3efdd zRUlxyKWclyPfPVVjq4b0lO YtZESqEHMzXSdzpZf1EUEwx 450pk5wmvZ3rICkGUK4SYoy YWJsZSBhcmUgZXZhbHVhdGV sBZHuohReFRTrzpBRfI13fw 4vxGM3h1RiAJ3oh4OrpUJ8Q WNobmljYWwgdGVzdGluZyB3 FQCsjKNwEm7zrJReBBC6OHA rnBtfwqHReH0oYVEtUNt2XF VoKxHhMhrigxKQBXAfC5LyZ EJtjlCkeemfARZ7eF5iq2i8 RGikDd2cMAJecjtaz1rkwdM gwXUqk9AaSIPslpEnr9HeFU AsxbPolTGhDTVnmlKgge8nb rIsRYPxNZKzF4NxhzxphYco deE8EBYkXTXwhYOvnQlnFDM jYWx1NOvyhiBks0YaGcKkas NzgQVnhbEeIP6lQWYquUDed nJjRCB1WMTuOVKOAbZwZIEv t8MnAG2dBEPysDrcCGSzuL8 mv2DqCALhd08kTOYaTNPXGY EgaGFzIGRldGVybWluZWQgd DqxtERbsIRcDWLjTHIwYB2e WSWrzmZzdLZfl4EwxZTexhI zo1DsgeFsEQNlZNE3HsGHrZ QzjYQslFUieoH9b9AaAPVtk oRllNhjoMKbhUOqdAHkk0Cr rr3rZQNzs5ukaEmxCM0qqLW iZSByZWdhcmRlZCBhcyBpbn Tkc6TkY7E4gU6wODduf9NmA y3wUTOhm1UfmkNsYxQAwZxm DNqvQh8lLGIfcldcxOXdR3U ydGlmaWVkIHVuZGVyIHRoZS ICmBlaiDDzlZWUJRWyciI5r 1R6XOfgmVZwzkCwPP41IQUg IH2juTYtsCIcg8SbQCf5XIT bK9kRNP08GAyeFBEwkKXncI kruXLuIQNbMFPdcrFqog9kc LrodZAjg80bfPL4fLM0BLAp uR5pK6UpAAibPo1uWYRyucy neTRdvPsdLe5orCZakE== Gross assessment was [facility] performed at ([place], code = 2777) Department of Pathology, [address] [place] [id number], Technical component [facility] was performed at ([place], code = 2778) Department of Pathology, [address] [place] [id number], Professional component [facility] was performed at ([place], code = 2779) Department of Pathology, [address] [place] [address], [place] [address], [facility] [id number] 15:29:08 Test Item Value Reference Range Interpretation Comments Case Report (test code Surgical Pathology = 104) Report Case: [id number] Authorizing Provider: Logan Russo MD Collected: 06/18/2021 11:41 AM Ordering Location: [facility] Received: 06/19/2021 03:44 PM PERIOPERATIVE SERVICES Pathologist: Tom Paige MD Specimen: Mass, MITRAL VALVE MASS- for MICROBIOLOGY then pls send to Pathology DIAGNOSIS (test code = [id number] 3220) uZzEwMzNcZnRuYmpcdWMxIH tccnRmMVxlcGljOTYwMVxhb qMnNZHazXAmD7PflohiIPix VI9wPO2qyBgziFQprCMfUMI aLnIqb1abg520xGFtq0mcWA RCoxutjKi2pZwpK12ku7P3H yizL57hpGChOJO3KOXbGEGs yAPuQRPrIWP7WGQbhYOnA4a zSXDrSK1mgsfkSFnuUUsxJR LgxRM7ZDUfwJMrL3NaUWWzP IwaMNYuabg7RqOhSf2dtIJy eTcyMFxwYXJkXHBsYWluXGZ tIhBoQR7lSJSCEyWvNC0PPD JBTCBWQUxWRSwgREVCUklER E5MEnViBR0GVFFDVORRFyfv cGFyIEZJQlJJTiwgQUNVVEU vMU3CNXECWKZLN4DTTDHTI8 BWG4KJIJOUSkKeK0MAF0xBZ SBLSJeAQl0icBJwSEYFXUDC KMbxP6RSRQ8EFIGCHpEEEsV SK2QWI3BZTP9MD5ZFJNOVYa WVND2GBP8WMMFNTZSMMiGEB FIYQcOVN8dBQ1roZJtuVIKb F56EZrKRACRAM22hG9uMQKE VRJNZJ2QWK4pKL8vNMFniH9 JDWZcTDlNMMhTXHQLZHZ9KC rQKVT9pSKQdqy17HRK7SpMw z0G5BID9QUPuSKQnn3xjKJK mbGFuZzEwMzNcZnRuYmpcdW UdINQcQnMnx0vjb092aYSfu 0hjHTQcTxX4tRKdXPFgpMQw A851BGErIEwqg2oli8WlYZD zzPSxy7Q5TQXDntwtgJf0jT twS42vn6R3WehzV5koXUHcD GMfE4IoSI4xYKVcPgf6CTV2 JHS4IYCjYLQaD2DpZU1nABW xlZMyCOp3c2gjyFhrMPOlDO K3f1zePYrtquHmQO0oed9bz Wq0d0sbuuNmTGPoRTJrpHOV XSXjU8UnuIgfNw3anAy7pJi dPlvcRPW5Ewk4NU2pjj70sk z0iGtbNWIqkhxtTxU9WRvsX XCngzylURp8ZVqxXNDtoYV6 QEKhfPYdY0XwAKGuXZ7vptu 3DLI1PEnoVDAhUxT4LMYvzN MmENOnmDgfQRomb077HHV3S rNqMM0aX9Gfm5N8hN1tdULg YSFrbBEmNhQrGTXorn5kzPI oXWtwh0RtZTY0akU6uTMubE UwCLWuSwD7DTxbNJ0qpm18Y FVoPJB8wf5wnYXksYldsyGb kGMkHKmoY5EiEMRai684BKW tH6HvVXSpc4C2trArBbEkIS IraYS5npD5TALuKD9kbnapv 0gpVBtrMCqvPCMvwwK1jjR4 WPOymMIyA8QqgN2mJQKuCK0 adpdqs0lfMHW6KVehIKCjKF Q5ZtGzHSJgo9Dxoux1IeKwi 2IklKCgNGagQ64re870TBUe keVeH6akbHFqzbrjmZZenkj wPHhrguV3IVUuFMjdxgslVF PfNXykO6taCdHoKRAifRrhS Ugrp4JnMWCbWNRvJiRnwCRt HQRtSiw3MUEerXRtEWWqPzG fG0kqxmrfVqTDLALyz2ocT9 mbpPQWdVImL5FrZRdqqyYfL AvfEIcaBdTeBJLyBV21NOW3 WVOzct24 CPT Code(s) (test code l4htnMJoODVxoCT5MfVyJBP = 3357) ps5yan2VdyQQqwMEgYAhjaJ NyymXoox28jDO4pL56RL8fP VHgKqH6JBUxigA1Gdl4QDSl QJWhbTZiJ172v1qoy4lbgkM vpGE0xJlcHYAhobpkIxR4TB viJQAdsorrGJc1KVedNYNnh BY7UZWkbPYbS0ZcCWLtOX3k gfh6TAU2LMiuTVChLfE7BIY jxNPxXUMrtBptBHook975IA S3QwKwRMWfdvTzfGppzJ8qO fVwKGS6LYZiNHjxBUlxAAHA T5wpKJB7 CLINICAL HISTORY (test l1iulJZvWGPgzCH3HcRfTKW code = 3356) qf6yzb3TkpKBdmQYwGJpctL FrabSsnm02oFV4rQ81YU4cR TNwKfO5YGIjcgI9Bmm0SBUw BFDhbUSxA137h1nlc0fhdgF oqFT4hKvdKPRcgqtfFfG6QU tlGESxcwwrXFl2NYxkYZUua QZ1YFEoqCQrS3NgXCOaYG2k gvp7ZUS8SUrpBRCuLlM2DVT byDNgADXpfVjeYIple138WR U6KkWvSGAomnIcwXwpsP5oI aBeABQSulSsJ2DjVNw2qFEa cGFyfQ== SPECIMEN SOURCE (test e2rikHIgZRDbzXG3VmMfDNW code = 3377) vz9saw0NksTMdkRQwVMhnbD EtrgKblg21vZV3gR85FW4zW IEqRhQ8GEJwzcD7Haq5KJKh XPKicQEpJ883w8ktf7yctbZ ysIU9yGcbGBMkynruFgE0RK afXCAagtgyYCu5YNdvKLYwt HI5UFQkaVBeM5ItPLTaCA5h yid0UIE0GFtuEZNzPwR3JRI imZGnTJLldMzqTHzuh626UP O4XjLwTIXcclOklDcbwG3aA nMyMCBNaXRyYWwgdmFsdmVc cGFyfQ== GROSS DESCRIPTION h9qkyPUxZSJhvCNpWyKcBTY (test code = 3366) uTXWnr8pfGJZopWDcWcJwFw NcZnRuYmpcdWMxXGRlZmYwe 4zim428bWAoq7keULZcOxS8 eVAaNLRjqJNnW618IBVrXEl db3oes9WjPZWoaQBis4Z5ZA EWovwwdFi1rXiuG71bg2F9P uvkF3koJWXdXGNhK8FaVF3n AFGzKsx5SBX0CGZ4TPErCZW wR3KuJA2nWHJlyYXkUKf9y7 awjWljIHMgQBU0c6ntKJhls wKbCC2ilo0zqEq4r1faiaIy MMJmFAMghUPFILJhY8WvdQs vBm0ixBp3cZdzAofkMHB7Lo v3AY0hwl95hed0rKkdXXYpd sgeVoH5DJwzBCFukaqtXWv0 MFxtYXJnbDcyMFxtYXJncjc yMFxtYXJndDcyMFxtYXJnYj gbWXywSCVlQZP6KBfzu408W LF1UFlbh9xms9vzuOPdEhp3 ONAoLdCuGepdQEqxd8Wqx4o iFEOgox5rFKA2zRCcpMzwa4 M5dGOgKSKtaSBkayAyVQCuX bN7WAbiHA7ulc90REWnZQZ2 ai6yhMRgwOadloEuoREtRTc hW4GoSZQsc196CDBzY3UiZY Vln3O6fxEfAvKrPIKfuIJ2z mD9TBZmHOz6uBBcgfI1pjYz rMRcH0ggmD53AtFkeXEtD0L myJ83IhExrOQhL0GlxR17Pa CtdTEqW6VyvO16YoRkbVSfR MTwwCRhEz4iaQRyhZTzq6Cf tFKyDKjfE94ng236PLNzsvH aQ6rdsVLiiyjitRVshhmnOE uvqoQ4EPTlHXTgFNatDXKlP GZzMjBcbGFuZzEwMzNcaGlj qSsoCPzeHdSlVKGqYHcdR9r cZjBcZnMyMCBBLiAgUmVjZW b9FLAgaV9tAf6mlYQtnP5rm CCuTOtwLEQ7rQWuLOWrEBZm SKEyFJ74O0SssJ4ab8QrCFY wy87iQQ3iGOKsqPMwRXcbmv FsdmUgbWFzcyIgaXMgYSAxL zXbR86cfL7xuHHwX6EqBFK2 IDAuMyBjbSBpbiBkaWFtZXR dbaD1QQ7neNtetfJ5yWViyX XdUCikiKAiEUuoBHK1Bs6wj PIcKHMbrnG4e8SaCWrtEDIt d4EpfNSfGLHgYgnfJDBzwHO mDTWqraBmxCazoK7iRaChMh MyNFxwbGFpblxmMVxmczIwX WwlxqmtPJEkHXdyV6vrBsQi VNZwrYdsDVvhz3AuJMFeFRW yZwDdWABdBQEln5shCS07GR xwbGFpblxmMFxmczIwXGxhb ymyONWsPXkxV1fgOpSnVNNt gJfpOQczl1GmGEYyLOCfDjY ccGFyfQ== MICROSCOPIC z5kqtVQtSIValIS0EjHyFZK DESCRIPTION (test code je6hjh8KjiWEfoWVmOHbfnT = 3371) MoxrTllg02hZG1xF56RE0pQ ZWbHdF5VCJbnyK7Zjy4BEKt SORwpPIwH684h2kqg9hltfC vlEQ4iAcbCRXnzeswYiD7WO elFEYgnkcfEMm7WRumXBZpo QI1BPSaqCTjZ6ZxHNOvBE9s ybh4VOR1OXbxOLZyBhC0WWZ ywNMiSSQqhShrLQeeh707AP V5MxTmBMCakqCvwAsqsG4qT bLzOIOTFGBid6ZmEEIzDJNd cn0= SPECIAL STUDIES (test e3upoJQbXEPixNN3LiOfLRX code = 3376) tv9nhe7UmgSEnlTVmXHvxoM BmyyYlgj32aRL3dR66OA0xG HOjIzM5XXZmjtK0Ume8HJQm LXZvcRRyM147MDPbIDWcbSi vxnd2jE03TKXazZ2bzDSePM pnisNeVCvlsfDtmzNiRcw9R AQ5gJvcWKXoosctKlA7PNtu JVRnqxlmLEh2XJumJLGqyMD 8IWSjrIKlP5IxOQLnSA7exh z3VDS4ACptDLWuKdX6XQLes IEdLTTrrFucDHtdq331EED1 PzJfBUPlzhJxbVbscH7jUwS cZnMyMlxjZjEgVGhlIGludG KwoPJnvNO7pA6fEU0sWLOxw QZbO4IkZHXpoeEdzVFzESK4 fMKuvWUeJK4jYKstxFEjg4p yd5WzZ5tcmGmapGX7IZ5vRF IyLJIeRJsfs7QgnX4nBnhgN HAuS3GbZMYZP1GTAHVrJKAL Cm0YYlOPBaBfTrDQOe5bPKq NUywgQUZCXHBhclxwYXJkXG XpJCMSh125sf7tBURxwHAet aPAtFXbqO2eWEzrUFxdOWye nGOuLWcnq3kuTJUge8q2xFG mNUVrszPzb0xiHGyjlzWdGN CcyFTpcYPvREMdb89jXXrkx MexdKxwULQte8SywYfkz4Gg EhJvADsew5XrH27naYOtiGT vrNfgAPRcteCmKJUlr84lc0 ccFWBkKoI2nKRslST7gRQld HOiu2LknXrdZUJws7rdJEFz dq8lmancwVWxm8CqmQ0dnjw uYRdrnFZfuyRtKDWzi8m6oO LtBUWuAWKqSZkehAr1JDMzr 479ey3volA4mQJsNQY7XPgy YWJsZSBhcmUgZXZhbHVhdGV jLFQdoqXoFWPbjpPXqL44bg 9rgLX5e1FuIS0nq5BqlMB9K WNobmljYWwgdGVzdGluZyB3 HCSoiLGrCv4xsVVoISC0VOY crAoonrZAwP6oKKIiEOw0BK CtFuUhZyfsdeICJDMkN7QrU PNvpmWourvnNOK5rL3qp6q6 BBpnCb0cDSJrrpexi1grgkI blLZfj3FoKVQuhcTut5LbIJ RhogJygDFfRYVqbkBkwl9zv mAmARThBXEjO2EbostzdPlp cnL2MUZkQSCsuPUeeCynINH oBUb4GBdhpeWey0DhJxRvqw RxwJAhjlZgRG6eEYKrpDWwd wLcDVC9SMCaHPNHQoRiIIPe x1HjAR0bQOYycWoyRPCvcK0 ur6KdEKNqc77jSJKvXPAQMA EgaGFzIGRldGVybWluZWQgd YnvbZRltFDnQEYsWDWoHP8d RVMluoAsnHVhh6NxsUNfolW ab8YdbdUwMGZlNQK2SnQGmZ GdbVDqeUOojxN8g0HhQNCjb hNxjCjxcYQmfDFkwQErm2Mw kq4lMGZkx1tcvGlkCS4srXK iZSByZWdhcmRlZCBhcyBpbn Koi1DzW7A5yO9kEGvhg0ShF z5uNJGqv8DddxWfIzKYjPul FXdvMl4nBYYvjhivgMBgG2Z ydGlmaWVkIHVuZGVyIHRoZS JJwInrvGGelHMUOAAsasG5k 8X6CRongHVrwaPgFC73GQLu DC6djVVpoUCrf1ArGHz3COI gZ2hBCS40DDalQLEdhBHdjH jioHCnPMHcEHSibjOzim1od QyywRXzt12ziWR6lXN6MRMt jF8oG8CxBBmaSf7vZONolvo yfKAieSemAb3qgQSywQ== Gross assessment was [facility] performed at ([place], code = 2777) Department of Pathology, [address] [place] [id number], Technical component [facility] was performed at ([place], code = 2778) Department of Pathology, [address] [place] [id number], Professional component [facility] was performed at ([place], code = 2779) Department of Pathology, [address] [place] [address], [place] [address], [id number] 15:29:08 Test Item Value Reference Range Interpretation Comments Case Report (test code Surgical Pathology = 104) Report Case: [id number] Authorizing Provider: Logan Russo MD Collected: 06/18/2021 11:41 AM Ordering Location: [facility] Received: 06/19/2021 03:44 PM PERIOPERATIVE SERVICES Pathologist: Tom Paige MD Specimen: Mass, MITRAL VALVE MASS- for MICROBIOLOGY then pls send to Pathology DIAGNOSIS (test code = [id number] 3220) uZzEwMzNcZnRuYmpcdWMxIH tccnRmMVxlcGljOTYwMVxhb fUiMYCyrEXfM0XnmugqHVsr HT5oLQ3mgGjucPBtuEIhLUS tZbMla3jjz587jEHxl0vsGX QEqtfhiKg3mRwvZ82bb9G8N pgvU65phDJePVQ5NTNgQXPg dRKeUNJoPZQ0DVJtbSBfQ0l fVTGwLW2qxutpDKpmHJtaMF WdgHA6RIObmXNfS8GlMAVjJ YdpEDToopx9WpPqHs8dqZSy eTcyMFxwYXJkXHBsYWluXGZ kHyPnME7qTTOXVlHhTC6YUP JBTCBWQUxWRSwgREVCUklER P2TKbIeUG8UICRDQMDLTqvx cGFyIEZJQlJJTiwgQUNVVEU lLW5PNSTRSZNAL5AKDXKGU0 XIE5YSPENLEgHsS6HVA5qBF PDJPOyZWi9gkSHrETPWUOLL KDfxM4ORFQ3GNPUXEgHFReX YW6QUZ0OGCH8FH4SZETKLEc QNAZ7ZIB6SPHPJCKSIPiCFB RTUZfYEW2gOV3wqGJrzKYKd Q08RTuZWNMFNE24bS2tEIST WRUGFA8CTJ2qEP2fTBWveY5 EXWXzKTvKVRbJOIAFKVQ7LA gAKWC8uXCEinc16GUN7VrIy h2V5QRN9EIAqYTLlz9dxRXB mbGFuZzEwMzNcZnRuYmpcdW KaIKMuNbQht6zbp323cGQcd 4ikPBIiDcU4kXXcPRIjyPGt D173PRXsDIoni2hxl2SfQOY crFCod6N4DVCEkcipgEp8hG ruQ23mj9O0ZnbuH1oaRCQxM AUgJ0OcJE8bTTZrToq8LZR9 FMM1BLBuVEZhL7WdKE9lRYZ vsQRyYLw0d3hrjPpiTXEzIN Q3e6ytZNwtasMeAZ2mlq5ld Oi6r6zrjdGkOKInOALrrETK CIMlC4EdcEizQe0phEs1tEm uOtilCSD1Huo5KX7syh32ub e6xHquPGCtbienYlF8QZuuN SMvgwfjSEe6JAyzKHQlrMG0 LXSygQZoF7LvUCGsFG5vqyd 7BOB7PLwxZUMoZxM2YDTxgG UyNMOznMhoYQumw989LBV9B eVrQP5tK0Nnc4B8uL4fkSXg TXCxnXKqXwErSTEreo7fkGN dLBbkn4MdLUS4rpM9gEYdsA ZeEJOlLuE7GArxRA5szk61T EUdTDG3mi8ujMQhnMljvpHl wXVqZJyuP2NaDWZds386JLW qQ0VhLLYyd5Y3hwGlCeDsWX NtrXK5dcM0VJCbXD0hbdsoj 0gtYIqmBGccREJunjY6roD1 WSArwDLeD5YyeN6pKJQuEH6 afqtrl3yqHVF7XDozUFGjQJ G2IfEdUFLhl5Agvjr8NyZwu 8BkoDQkSHaqF02wb099HADl ybTgQ4aovHIspcbzuQGeyou tOTgczfA6HJTgIMyrwtytVV VwWPwrG7imIoHfVAUybLspP Xrqa4RoVAVqTRExJyIbyUJm VSOvMmj2SBVjdODuOLOjHqI oL0bqgcslGaZKKNBtm4swZ6 jxvJTRuADaI8WhNEnilaYmB OmnJFaoWmLvDPFmLT97SKT9 WCAzqu36 CPT Code(s) (test code n1samWSoDWJglIY5SoQlFVR = 3357) df8ihx1CmsHMsdUOsJLtsoB JffoYikg27jOF0gD06EX5fL LKbNcT9HYTtoaQ0Zdm4KSYs SVMlnGIfV258q1njv2dlnyL kcFZ9sAsbQQFnhjzwOzW6UQ toOTHqpnsjWJi3YLgkGOAtu NI3VPAahPKtJ9FwDXRzQV7z roy0IOG3LWauCGKnWqN8RLW yvZHwNBJqgQfaTYoyc739PJ A6AwVvFHWyxsEplSzunM3kL tUqDPW4XAOnFGgpAVmaRGXV R9xlHTF4 CLINICAL HISTORY (test p6cbcESnCIIppSF7UbEmURG code = 3356) nw6hev7YyfLZliPHpLFvtpY CjpaWfvy24mHW2tW65II0bE CFrSkJ6VWWostN5Ksf2ICCc XNGvxNGlM578s4rhc7razpW rlLC8vQmxMNUnmrujEjX6DZ eoXOGwbvevUBn9LXerTLQoh RH4FPZgaNRoN7WtWKXlBN1y pzn0IGC6FEjcNZTrIyC0EKE abPByWUXdqBhiUFtet750TK A6HqMbYQOcoeTnqOadrZ1oB rEjAJQEjaJpU1NvDPp2sSTf cGFyfQ== SPECIMEN SOURCE (test k2zzxPIqPQKjoQL4UgUgPGD code = 3377) gf2whf6IsgDSvbDTwSRtioZ XjqdQgpl25lFP4eX46AO3pJ DRxLhO2YHMtubT4Zvh4TIGa OUQbeADxZ055k5som1bwhcL edEL0bOliFNOctnlcJiG1OE vxBWBavvhrANp2TTqgJBQsb WH4AIRugVCdZ4MvZAXcLM6n unx1OIL3BMxsMLXqKpV2YJD vdNAcYHCjpOzdIDate358EW A7VnGyXDJrxfGuxRofoX1gX nMyMCBNaXRyYWwgdmFsdmVc cGFyfQ== GROSS DESCRIPTION b4daoTUfGBAeuCTsFrMiHSD (test code = 3366) qYHDdc0mjBMPuyMYePtUwMs NcZnRuYmpcdWMxXGRlZmYwe 6dyb406bQXwv5bjJZDjKhV9 uGFwYBPyaWZtD566IKTeXBl lk0afx0XqKQYbeQVhl4D1AT LVycdaoVt7oRjyH51kt5D4K ijvU5wlXPWlEKJsZ8WpPY2s EZWjLvv8WUZ3KHI8ICHcUMS lD4LiAA5eFTGqkUWmPAb5y4 ucvLxwPYBhPYJ4e3vbEQwpp uPlIY7orl4qmXu0d3vfpxHi DGTpYPBagQIISIEpH7UnhXn rGv2wsYz0oEpbTgqcTQU7Pr t2BT9adv27vya4tOyzYADap qbpJlK6LZcfNAFgcwurOFi8 MFxtYXJnbDcyMFxtYXJncjc yMFxtYXJndDcyMFxtYXJnYj ihQNdoAJIaIWJ5VKiiw440P KZ4ORnbb0ntd4xqaAAkAzg3 EJFfHlCqYcnwNPbsb4Zhf1b wLVDtob0fXQC1tSDfwHuco4 B4nUWbBPFqiPZwgdDsPGYqU bT3JUugIP6uiu63OBIrQVW8 vk0vlIGfqIwkkbRljNXdNJu nS1HdDXKua442SWTaH6CwJI Xqf9X0snPxHbSoXBVgaRA5y tQ2QZPhWZi0nJYjldO5nwEt lCJjP5ylqU02JoAphFOyT9F zqG33LtSxhJOlS5FukW09Rv QaiLBtL7JakT97EuRwxHZwT IVhyUAqMx3rtDUwbCBsm1Uc kVZqXEatD94bv491TTNoccN qZ0hzxWTheyoqzARmjmlxKK syzyR6DFChZCFhLYimOHSvP GZzMjBcbGFuZzEwMzNcaGlj hDgmHCwjMzGcLAQmVCzzQ6r cZjBcZnMyMCBBLiAgUmVjZW w7QKItzR1bIk8vrZAzsZ2ww UVgHBsxEMD9nSXfNZBmMEQw XDCbHE13C2VuaA2qh4FkUIQ zx05xET0sCXWmxRSxEImptb FsdmUgbWFzcyIgaXMgYSAxL oXeD17wsY2vwBCrF9IbYMV5 IDAuMyBjbSBpbiBkaWFtZXR polJ0HN0dzJubaiL0jFSdxT MtDSofgHEgIFaaRTY8Hb3po GVeHABpwdC4n4YhFFtqMDZa g6XuyPAhWWJwItcbGNWwqMV yQJIkpsYvuFgxqE9hPeHhCe MyNFxwbGFpblxmMVxmczIwX GkpqyvpWRDoCDuqG0ggGxEn TXUloVemOXagr3CpZANbJGV yFgOjIYVyJJDdk2qnGO53RP xwbGFpblxmMFxmczIwXGxhb xxfRNLeOUizO2tdZvCaAJMs zKjbELzye7XpPNWwZAWxTvF ccGFyfQ== MICROSCOPIC q2uhuPGvCVSaqWP5IoDzEEM DESCRIPTION (test code zq1ekd2DqpVNmsWEtWEzajU = 3371) VbumKmcc62fGX6dB03VY8oK BVkPqF3IOBdroR0Wpu1IJSk TJXgyKMaR901r8ces1xznhP zqGT4pDdhRRXvvmahFlM8FP vmNHUltalgSVl5ZXrfBVXxl FA1BAKhlKQrO8MiKMRmNZ5c caq8JWA8DYhhBWMsDmY8FCJ hlTFbMRTlyIndGEutu100VQ V2QlRtDHMicmCfaGhxxJ1uI pYuAJPFCUQgk0MeTGClHGTo cn0= SPECIAL STUDIES (test k9xedZXoIFQszGB4GhSeHQU code = 3376) ar2rfm8WryHXazLKnARxazR NuulJosa29jRC2jG91RK8bH MQvViL0MHLhubA0Hag6NMCs ZLXcwSBsN107BMKeAOVgyYm ddte4pT82DWHkcI0ahZWcBQ iqcyXbDNuvrpIcudZbVem5Q YD0ePjtFSVcumfwXpZ2NDdv VVLltcnlDMy1MNnyTLLmgYN 4TYBzkKGyV1GgDGKkGK8pcf x2NVC8KAssUUGxFrX2MCVuk BTaLXMdtQhqNSpos000BIC7 TzMcMZCgazFscRvxmE2uLqE cZnMyMlxjZjEgVGhlIGludG ZpzRNvxXS8pZ7eDL2fNICcz CHiT2UyFQBhuuIekBPrSTT6 nYVgdNOvBE2xHBfxtVHig3n lu5KrJ8yrzNpbvQS6BH7hWS CcPEPyKKmxr7XpdI8hEsfrZ RLuP4WwVSDLC2NRZEUwAPGG Ie9TLaPQUoAhAbKVIu4oWKy NUywgQUZCXHBhclxwYXJkXG VlRXJEb992uk8uNSUccTVqc pZPfWEluL2jZWtqVZkcOCdz yIOhTNbhh1vrALMod4j8lCS tNRTabhBxj4xpRVbmdxCyOY JjqWAruRZdFBMzb21jEXbca ZxsqEcwEKHnr6NfsMzml8Yc FgWpJKfmm9YvJ97qpFPaqDO hvOycXZGkcoZcMOHnc47tz1 otTXKfJuA4kQCllNC8wEBhv VBzh2MmmFpnSMMpt6hfIOJx er0miaxybKJls3NtlN0itax iLSyydRDgtyLyDBSgo6d5nL CmOEGeSNFmKJgumQy0ISQkz 164cs7dywF0mCYtDCK0QZdf YWJsZSBhcmUgZXZhbHVhdGV vQJWkyxBhBMOcdcUTgC91zw 7yrHO8q6MnWD5ps4SeuHU7R WNobmljYWwgdGVzdGluZyB3 IQPhkPOtSk7xiJYvUMP9TPT xcDomhoKRmL6bTFAtZLi2US NjZrQtGsjzheXAHHQyD7CyK EYcnyDltnfjABU5sQ5qi4x5 JXawWl4hQDEqtrsjf2ubryM anQPlh5JfRKVwmwTks0KpBE DuruQrlCIsSHGlpwGfhi3vj vNqRPAcMUEvW5XpkgdxnOfh aiK6YINcDRFcwDDdxJlsQRZ qNQz8KOdhavGkd4FkRmVife MyjTMcvoOtZD3oNTLkbJAnj gJmVHZ0HOGqUJDWNaUiUIUa t5IgDS1yOXItfTbpVMNoiC7 qm4TmLSNsq93sCSDgWNCWQO EgaGFzIGRldGVybWluZWQgd BkqoMWokJXwQGInKNUoAK6c YQXceiImmRChe5VxhTHgqjA my5IfomMwAGLcSAE7ZhPReY QnvWGlrURwbtR3k2RnMOMpb hMppNcpyTLtpHVcyMLdt9Bp we1eVWWdp0pmwIfeQU2ojMM iZSByZWdhcmRlZCBhcyBpbn Jek3JpY8X6cD6rWLqsp4XvL r7aNNGyf8TstcMgShWEjZcb MHuiNt1dRCGtencngXFfI0D ydGlmaWVkIHVuZGVyIHRoZS OZvXjonUOqwVCAALXsseQ9i 0Q0MZfauFNuehAvOK91ZZAq RD7jzQCacEGky7CrQVh9HHC qN7pPLH58PPbnESJfuBSvcS uvnEXmHOEvFIAlytSlbi1af PqpyZZnu15piQY3dBD3NXCu xT1hB8AfDDmvYv5lMLAwdrx fqCUoiWjfJz4dcKQlkT== Gross assessment was [facility]'s performed at ([facility], code = 2777) Department of Pathology, [address] [place] [address], [place] [address], Technical component [facility] was performed at ([facility], code = 2778) Department of Pathology, [address] [place] [address], Professional component [facility]'s was performed at ([facility], code = 2779) Department of Pathology, [address] [place] [address], [facility] [id number] 15:29:08 Test Item Value Reference Range Interpretation Comments Case Report (test code Surgical Pathology = 104) Report Case: [id number] Authorizing Provider: Logan Russo MD Collected: 06/18/2021 11:41 AM Ordering Location: [facility] Received: 06/19/2021 03:44 PM PERIOPERATIVE SERVICES Pathologist: Tom Paige MD Specimen: Mass, MITRAL VALVE MASS- for MICROBIOLOGY then pls send to Pathology DIAGNOSIS (test code = [id number] 3220) uZzEwMzNcZnRuYmpcdWMxIH tccnRmMVxlcGljOTYwMVxhb wKuWRBxqVHfU9RchlttXRlo YY6eAA6coKunfNCtwPOsSKA zOtGgu9jnz288aYPqc8bgDE JAyzevyNr2rGqbI85bh7C1K sybU86plYLoSZP2ORWvZXXy sKGiBMXrGMM1KXYxdYGaX8z kUMRqAB7txxfaTNpjMAwtOR VaiFP5CEEhjGNhO7UpJJBfX XtnDKLwoqx6RjZlDg5oyASn eTcyMFxwYXJkXHBsYWluXGZ tIeEbMS9kZEZXCiQyIW4ZPN JBTCBWQUxWRSwgREVCUklER O2WTbLiDN0GPWPQKSXXNgfy cGFyIEZJQlJJTiwgQUNVVEU bKA3VYAQPOVPZI8GYDUYQF6 ZTG5ZMPONBYnIyS7WRH9eQO AELGKzJUa5cdBFqTIRMBNDK KZzbO8NGWB8TAYROPlUFBoN FL6AXI2ZJOU7YP7BPKAZLVv ZGAP9XVG6SXMQDBQBOJfHCM RDLMzSNC0aFM0vaKZzaXVMt N66VNrQQROBHY38hD3nHPZP BMZGDU9VRG9wLP0eUXNzsQ3 HCKEoZYnWCDbVICPEOML7UY mGFMT6yNXBefa17EVW3QbKu w0V8EHV8FYEhOZFqk8hhYUM mbGFuZzEwMzNcZnRuYmpcdW SeKHBdFrSok9zll015uNQow 2meXVMqEvP2jMFeBIDzmQHw T672TNDlOPfff8ehg0VbMSQ csKErj9G7MDRFsoznvTl2zM mkI31kp9V1ApfqO3ueYFWgF YNtG9FjMR9jBJRfWev5JPV0 ZED5USXnSWSbW1IxZR4bTNH qoDByYLn3h6gahXngZCWhIX X0x5ztDLhsyuBcWA7yuo8bj Lu0l6xpfqCbHTXcYQOreNUS RFVqG3GhqZlqLd1kvTx2sYm wQwyaFXG0Vlu1UN6zkt97kk b4cCpwKUUwuhejPiC6SKqeD TDovvjoLYo6EVelMUHpdYJ4 PDQtoCQcP3UbJCOiNG1uehm 3JUE6VBuuLSNeLdY2GMElzU PjDSBpuKsdYTbpf996SDM4E mDfEW9pK9Gbl6N2aT9jwGRb UIFimIOiBmNsAMClqr7gxJA wHDbnk5XbQNJ5cnP0cAHyxS TeAGPpSgV3FIwjHJ0oqm13Y JVoYIS2tj3rlPMtfEzqryJi kKHrNHwyD4CyGJRgk593FLK mM2HrGFLnp8M1yxDuTpZcRV MdpHT3ooV4ZWBsWR1tpjjpq 0uvFKbqKNgvIQKrwqR1wcJ0 VJVlmGKaV7FuiZ6vPRTjQW7 nwtcwl5plSCN2LOrnTKKvEA M1GyGdEDLur9Yiqwn7MjUij 4XqdAQwJMziN63tk338MUOl phTrC1kjtQLijxhsmKSwzox eLSzkgjP3XTJzJOzonsegFJ EcDDfaV1abKcMuVYHrvNqyL Xnos9NqEWDaXNYaRoNaaKLb RUAzWpx3ZVMjvUYcULBqBcB vF4fqsksgLhMRGBSik7ozB7 jxkBQSiOKnL0UeZLwaydSzW VzgSTqxJqRiKIUsZI14CSE1 WJKvpe23 CPT Code(s) (test code v8kivPOwOGRfsTB9CrFxHRV = 3357) pn9jnb8EhxYGusSZjVCitdG LnisMzzh92mMN1eQ25QK7eK VPjBeP4OJYzzwI8Yip4OQFg EKHmlXZyZ522j6wwn2lmfiQ mqVH3cIrsRUCrfehjBnX8BY enRCWajdivQBb8XSlwOGFhd MP7RKAerPByB2YbDLQtPJ8b iab0EUB7BVhbLRYmCmN2ZGL myREiKURpuGdzUYidb669PO C0CjGyTJBovbDwfTwpcZ8aY hVvZMH0RRDmNVqmAGarWVWS R3arTWB0 CLINICAL HISTORY (test t6tglNPrLLHqyNM9ElTeOBN code = 3356) gb8bbu8TfjOBncXYyQNeueZ RhruCfld76nWG2oX79SF5lO KUcDnX5WQUbnoZ7Dzj4DGZv JDXajNLsO878e5wjh5kqiuS olEI8iQktVTRuhbfhEpH2QG fdNWDspdprMTx6IUydHKGxa GS4OIOtvVDsF7QzAHNtRO6u qfd8PBZ5LQzdTAOqLbE5WFQ vlQPvSAQakBofRVpwy330TT A2UxNtTKOyurSteWjrgR2yX lZyHIFPojGqW5MyXXa6pAOq cGFyfQ== SPECIMEN SOURCE (test v1kjiOJbVQEalRC9BsDjHBJ code = 3377) rm8ent1BhvBFovLSmCAlfkK IgfoYrsp66uHR4fJ78MV8gG TNiKeL4FUWayfA7Shq0RZOh EOXeiQAwT761r4vcr2avzeS wrAO3zZgnRORkvyqsYvZ1FX ljVZUpqrrwSGr2ISwxPFLcg GS3ZYQhcRYaE1WaSQRrSH9s rth6LFV9IAdrAREbOwI8TRS swBSnQEMuqMmlMQbsj861UP L7WcIqHHXlegEhqWxwyR0cN nMyMCBNaXRyYWwgdmFsdmVc cGFyfQ== GROSS DESCRIPTION r6ewqSYpFAWvlHAxIgYpQMN (test code = 3366) sDMLgp0ueXMFncKQbWfOmMl NcZnRuYmpcdWMxXGRlZmYwe 0zza795hTCfl4rkBPBfZdR9 wXGjDBZmpPGkN439EZMfXNd dn0qwr6QqPEUwuXSwd4I9NS RYtddodCx6qAscU44gj1S2C itwF4igQSTlTTFaM7QqDD7c YKAfYqd4JCE7MKB0AXRrROC vO7TcGC9rROTowMEdNQv5a0 edmZlxPNRnZVN6p3vrSJrjv ySkKO4utc4uqPm8i3tglmQo UUZyUJBtxTTXAZLpL0VmyLw hWq8cyRw4uEvhKmjjNPW1Em r3CQ3lun60tts6xRfqHZFkt mecBuV0FCwjSGJffaosAWg4 MFxtYXJnbDcyMFxtYXJncjc yMFxtYXJndDcyMFxtYXJnYj ikCCawRPXkNAT8IXdkn029P UP9OCleq1kkk2vpjKPaUfj3 CSUxKrLzVzquCGqeu7Frz3w aZACaeh2gBAW5sMHezEaxi5 P6nZPzXAMqvLNsciWvYARtO uG3XJkqXP1jou70FARaQBB0 uw8pfSCxgIltzyYkrKAvIUi tC9EmCVMmf334HJHwX6PqTC Oab4U4acUdAyNdFSWmnJR2m vY2IGWuNJq5tVQykrG5egWb qHYzP1qhzV30ZmBucRImX9X opT10VtYmgHJmP0MkfE02Oy MepPZmF0FsdP13UhQgkQCxU BBuxQFxIq8dvWSilJJng3Cf zRQaMAldM25wu488FVFcitG iB4dipVUdbolyiWQfechqXD kytwW2IMJuKFFzIRhlEUApA GZzMjBcbGFuZzEwMzNcaGlj zHmwTMavWrKyJYIxVZibC5l cZjBcZnMyMCBBLiAgUmVjZW u4JOHsrS3gGs7vgCUqrL7jd WAuPEqiUVR0mAAsQXMxUIVr LSZfLF92J7IojA6xj0IzUMB hw73zRR2oQEQwgRJlDAakrz FsdmUgbWFzcyIgaXMgYSAxL wPwA13duF1ypHZtC5GcDQA9 IDAuMyBjbSBpbiBkaWFtZXR zuoI0CJ7vyIwcupT5pOAtoJ QaCXhlxFWiRZhaPUS9Kk8xq KNbQKXjzpH1p6IqBBgvHJOs b5CcmVNqFJKvHigiZXYvuYN zOGOgomEgzEjsgA2iKwGkNc MyNFxwbGFpblxmMVxmczIwX MjcjypdIHTfRPfvX8pqTuKp SESoxYgjEMnyq4HiNYTvLOY mSmBjJCUkEMGet3xxAI44NP xwbGFpblxmMFxmczIwXGxhb vwrLURvMZwiN5lvPnIrYRXn fLxpBVwsg3AlJYIwNKPqSxP ccGFyfQ== MICROSCOPIC a8zrmPOdGPVxoDB3BvZxNUH DESCRIPTION (test code az3tnz2GxpICemDWmCJatdL = 3371) PmppSlid91fMB2pA14YN3yE TMkDuC8CQOrnpY9Lmw0LEEt IHNbmWOaU099r8tjd8ssufQ puMB1wJtiQDUkwpsnYnR5SR lkGNGnfbbiLTg5PIuyKDKtz LF0ARMxkJIaP0LxXQJcZD9p gmh0NNQ9PCkbDLDeYcN1HCT icFJiFLZymAglFOamd492RE C7VhLeRHHqawZygWvbpS5dH jPuSCQGFCJyr4ZoNGQgACPm cn0= SPECIAL STUDIES (test k2ouhABtTQEweNL2KcGaYBY code = 3376) ir4klz2LqzDXpgKHbOSeqzB YitvSnlv25yIZ8nA77OH6pY PGkXkK8FPNlljT5Fwg9JRTz PMUvwSFyM999HHAqYLMltZs xcoi8eY73JQTfxL9oyEFbEK vxpuOpJIrpwnCzqsRuCmm2E KQ4pJdiIICgmscmNgQ4YNfm PTGhknstBDf0QDtvEWIzxJR 4WOFpeHTqK8WpCVFoWN5kqr d9IBX0BNaiNAGjAjH4NSNue OPsCSWloFmkVUjbz132IDO0 JnUkUBKruxEkeIqnkW0oNbC cZnMyMlxjZjEgVGhlIGludG NkoLQkqBK6dK7jXW2zYRTjz RWqR3EkCXQktlDmdOIvNER3 gXKquEGuYF1iHBxqpLNyt0u cg5VcV2maeDhahTC9DS7kYH TyLWGpICzkg6EyyV0fBbsqK QUyK6PnMUOQS6WYLCLyPCII Ho2UWtDSLiDfBoMOUs2oBKn NUywgQUZCXHBhclxwYXJkXG VoNMZPc231pj9aKEHlrHWat oJRpHKnnH1iJRwmLMekHWxi xJQbTRftk6zxWCLgx4o7eNH yVRGygtXub6hhVHfrppUdLO TrvBKmcLPlTLAif00dRUhip XevhAchEWXdg1EwqYnep8Ep YpQiRJbmy0PfQ28fsXWhmMH mxFwuFCSmllWoBEWtj41rj1 oaBOAbNbV1qRFlnIJ9kPZxl EKjy9QysHyqGVCrr1fhIKAo lm1hhtnqbYLsi3KyrQ6upzx eBFavgHUlbsXzVLAtt6w4fC WwGEHwZFKaZRmyxKy3OLQka 332zt7hqwG3nRCsFQZ5PWsb YWJsZSBhcmUgZXZhbHVhdGV tRLJedoTyBWLvtkNFaU29rp 7maXH0l5MpNF5uu3SrrCD6Y WNobmljYWwgdGVzdGluZyB3 WBNyiPPpNu1gnLLnJQF5ZXC agNtqtxWJzE4kTHExBQb8BU ZsIcVdCwrsdjLNTLSjB4JaT PDpqbWysllgASU8eD7vj4i5 UFeiPg0qSUYmhheza9uryxF sfNSca3JiVDJskmKvq0UhNR JwizMoyMSpIFLlejTgpd8pw iCbOXOgZEPeM9QelqcxrCdh kjH0CJKyFYMoqBRolQnhJPK aCYk0MRhjmvVqm2FkTlRpcl OblJKznmKbHZ9nSLTjcNAjm zEtFLR8THRvIIKKJqJaJGEz z8CaCF9uCFRvrBdvCFFtmO9 td8WrSRVur74fJYKtNPTIJJ EgaGFzIGRldGVybWluZWQgd MyryCEdqZWuSYBoZNDhOC5d EFQoluPsoXMpo0WmoEMjmtH mo9OuwmZxHTTyFEH7VyQKwY FgwNNwsPAgzlK2z0KrORDhc jMrtZumvNCgnPKrbBVjc7Nf kf7uOYAuc0hqrEvpXU9lcJR iZSByZWdhcmRlZCBhcyBpbn Dyx1SeP6B3gK4jVAjdf7HeZ q3qICLwu9FzbwSdBwNPxKvr GNumBz8yZEMkwlxhwZEaL3G ydGlmaWVkIHVuZGVyIHRoZS TOcApatTXeqSAMXUKdxhM8k 2O3UBhtaWJhbnLtCO95FJQs GA3frIJrfQEre4PuAHy5GQF cY1rXYB01TDkqIMKdxPIlmB jivKNaGIHwGDSilcRjxh2jt WefrBWov57voTR4yIO4EMFt qO0dG2NaCQhzUi6hIYNfbsr jkPLeqTbmCk5gbUKwxT== Gross assessment was [facility]'s performed at [facility], code = 2777) Department of Pathology, [address] [place] [address], [place] [address], Technical component [facility] was performed at ([facility], code = 2778) Department of Pathology, [address] [place] [id number], Professional component [facility] was performed at ([facility], code = 2779) Department of Pathology, [address] [place] [address], [facility] [id number] 15:29:08 Test Item Value Reference Range Interpretation Comments Case Report (test code Surgical Pathology = 104) Report Case: [id number] Authorizing Provider: Logan Russo MD Collected: 06/18/2021 11:41 AM Ordering Location: [facility] Received: 06/19/2021 03:44 PM PERIOPERATIVE SERVICES Pathologist: Tom Paige MD Specimen: Mass, MITRAL VALVE MASS- for MICROBIOLOGY then pls send to Pathology DIAGNOSIS (test code = [id number] 3220) uZzEwMzNcZnRuYmpcdWMxIH tccnRmMVxlcGljOTYwMVxhb sSnSTOhoWJxP5NokcbnGUzi GW0bKK9ohHujbBKwgZLdJSG kHmOix7ype864wNMbw0wxYL AQwcsekZe6cQtdY17wv3H9I tqcW97pvTJnXXL6JGLtVAPy pGItVPPvWLG7IBTjiSZvQ9a oTNVgHO3qcbzzOAewZUtdVO TogVQ8JNUatQWbL0YdEWWwW OtlZUVwlfe6VkJsYv4tdNMz eTcyMFxwYXJkXHBsYWluXGZ fOdFhAN5hUBGFXjRrOT9YGJ JBTCBWQUxWRSwgREVCUklER U5OXvHaKQ6ERPTRMXBIKmph cGFyIEZJQlJJTiwgQUNVVEU pCN3EEGGBGTVEX3YZHVBRX8 CLW3SDCBKBSrVdQ6WCV0gPS BUXMQzUXk2wnFCqKTFKEKZG JAgrA3KYVS9TKQHCYnNQFvG PG7SNX2LURH8BA3ZCGSTGQy PZKI5UGY2OFJWHJOQQMnNGP BEJCkTVJ9nLD2xwEJrgAJLh E50LZsSZVKHDJ53zE1zHQQG UWUESW8AVM5dTF1gMQIgtV9 RTJNgNAlICUtDMVYFNXU4LK eCWAW4eLNBcvt41CCM0IjTs l6R4SQH0HYQcCVPhg0frBML mbGFuZzEwMzNcZnRuYmpcdW CvIIJjIrVhd7ork214zBUnk 0egKXEqCpN4tOMdNWGwrRMj R524FIScNMuuw2jds8LhFNX tfLYsc9Y9QXNWkubvgCt9pZ rzH74ho8P5KmjsY0gbOZWvI PDxG5CeUE3gASBwQgs3JQW0 ADA6GYPyMZAlW7FpCT1bIBD ojHSdPEm5h0xrhBwrXYVwTF I9p8ohGXursnRsZR7zgs5ab Wy5b8sqcrXpUTIbQXPkbGDT YROmT8WnnDyjWe1bjHf0qJh yRotoNEY7Gxa5ZD3aag75mi w6xLcwMSLalhtfGnT9SEnhH DErnuuvZEv9NGviVMAktXR3 TDSgoYHeQ1AgNDAyQD4ccfq 4SCX8BLhvICHhIiI9ZVMhhA VhOGZnxSgkRIipg602QKB6H lQpMV2sZ3Rmn9N6rK6bbGMw ENPzbSJjMcWdHNUztx5xeKO oKHbgf6AcGQG1xhA2wOAqdH JjXPGnCaA3AFirYM8wmc02A XEhOGP6li5jeEDdyDpgfuDe iOPkBHiyE8OmLJGef965RCC cY7CyXAQzk5D3ceFuFnUuBY QdtRZ2hxW3XVYgVF5qwkjea 8jgWWwwIZodSHMkuaO0euS7 DJTgaAPyK0PzcO8gAFHdRR7 ctugah0coWYA4EHmuUJXxTV P4BrPhNQJlk8Suuok2BqVio 6XziNYkJZmoQ74tm718LKJv baLqZ2okaUYxmqatgHKkjto lHIokrdR6VNCyYVyxaqfqTO BpSSkdW2xaBiNwZINolSlyK Ycow5YxYUHgFVJuYcPwlOGt OBYmVif2GOOyjSRwXTRfUzH cD9qgjcpfEwNQQBMcq5cpE0 mqdKRSaDTlC8IvKKxhjhFvZ WazDZrtJaIrORBgUI96GYD7 EENotn96 CPT Code(s) (test code k1khwVJeOXFwsTF0AzEfJBT = 3357) cg1xjf4GqhPXtxXWhHYkjwR TuewQung46rWA6vS10MQ4zJ DWoIcZ0SFPqiuH0Uaf6DUUb NFJraGXrS170d1wji5hbknF waET1dJymLLRryjrvOsG5BZ sgWOQthgclQXs4QWmhURUal EL0PDWciRBqK9IuYGOfCX6h clu6UWM7SHlkCXMxEzE6IHR tiHAcTGIyjYytKRtfr021HE L0FuUdHBOfutJdrMsbxL3rD kMgYTP1GCDbZLgcJRivKEVG L1tpYMP4 CLINICAL HISTORY (test k6jaqKMlLIMeuGB7SbIjDPZ code = 3356) rn7ufi4IqvKXswYJmQBtamP HlwmElqd09gMR4lA16WW0bR KLvQlQ7VUVussJ3Rya7AHUp LHRlhJLaD208k6vmp1dlumU ybRU8bNcxGDFgqssyIoQ6DQ uqGLKybgegFBc0TIppPGUec IL3RAIdoFIwN6CjLOUpLA3l nnb5JVF4VIgtQXOuZpQ1SCJ rxXRnLRCrcSypGDmns420TJ K6OrSkTENigdKraPosiT3dM nWfEENWauXgI0CzGWs7kPCg cGFyfQ== SPECIMEN SOURCE (test e9chwLDmYTDwhYF1MyPtJWG code = 3377) rs0jvl4NosQOadIZwRGsgtA GpaxSwwq45tSH3sA71WK3dF HFdYeU3OVExzjN6Kfh1KIHp AFYauGEnV076w7uto3pycbM weVN6nIabHKMgxuldJvL4KQ poCFNglpoqPWg2JPoaQGArn BT6IEGjuINzW3OzRQPlRC5c vky5VGK3OZoiKKHfEjZ8PBH ppIRgXKHqoUqeVHrjf912LQ O0IeBsYWHnysWmbGieyL5qU nMyMCBNaXRyYWwgdmFsdmVc cGFyfQ== GROSS DESCRIPTION i4tbfWYfAPQetPKbOkJrSRY (test code = 3366) sQYDxv0gwIIBovTIcQuRrXq NcZnRuYmpcdWMxXGRlZmYwe 4zjh075wLTyb5bqSNAzTsT3 cWStLJFonWSwU752NFWwMHz cc3kzo9KwYTJpdLQmj3V0HV AMtvxtxXr9vDhvF03rr9Y8W ppjL1okJBFtDVGmD4LqTD7f CMKdDct3ZFN8RNN8CVWpEOR xZ8XyRY7dCYNwaGCaGKx4q3 fxyKuiOFHqPXL3m0ruAUqmb wXwNW7fps2ngAq4z9fjqjEl WPTdECWynIKRGOIfK8BvbFk nSi3mrWi8wHfgRfjnGEQ2Na g2MP1ahy42cdl0yUffXIEwa xdfZsG7ZRnrSIDvmxkhCIf9 MFxtYXJnbDcyMFxtYXJncjc yMFxtYXJndDcyMFxtYXJnYj iyCCabIFSvJAU4OEbtd651B UO2RDxhi4tla3hymNDgAbs0 BDUqWpEnBggiMSksy2Qay1f eHFSazp9tNBM0sUMamPgqk8 A6tYFjKUFspXZcbiCxRFGbE yC7RWszKS8zxk10XEDvZFT8 ka1puVTdiNqzdqAytYMaEQm zQ8UzKIEvm717WCFzV6WnIS Ivy5P8doOjIoLtLHCxgPT2k kP5RKOhBHf4kAKawhS1kdVe qUBnP6hyqN99QtBbpIKfJ3L mjD93FkHvvDLwA4YfrG59To SmiAVkX6KdnA31EuRgzRLwP NOsyCAnJb3lsDIvkIHvt7Uh bKJyUIrkF98nr249MFUmldA lK5wnzNIhauxfnCJsnbocNV uwcoP3ZWAnPYYrSYhjFICjT GZzMjBcbGFuZzEwMzNcaGlj bTutYDofDwGuWMGaQHszJ9d cZjBcZnMyMCBBLiAgUmVjZW e9ABWoeF5iMc0wmQAhaV3sr ZNuQBluKYY2oWWvPLPwIKTf RVCzKH45X7CnmN0ta9KbCLX oa65gIT4uKYPalDUeAMsgkz FsdmUgbWFzcyIgaXMgYSAxL zKfU58tvR8ydJFjX1MyJHO1 IDAuMyBjbSBpbiBkaWFtZXR ygnH8VR5uaLauzlM7mQHqyS ErDDletSZfUKcnMGA7Th0vp HXxGESpjcK0f7StJPwbQHYw k2CsmCJnYHPiPlemMSJwfPG xTULjdhKztGbhjN7rSzAtBz MyNFxwbGFpblxmMVxmczIwX EwiywddRMZgPNzeI8aaKeVx SOEicVhiZHizm9BtTWHsJKY bFrJyPPAwOSXza1emHH44BG xwbGFpblxmMFxmczIwXGxhb qbwERSuUZxfF5laSvHdWCCr tGriNYrrm7PvYPTwZECzVrB ccGFyfQ== MICROSCOPIC n1qrsWCiGSJboKG5NfTzKMU DESCRIPTION (test code be2nan8WicDYynVHgYNkmqE = 3371) GffjDeix67cHE4kQ22QJ6zF TJcJkS8YMPacxV2Uyx3NXRk MTSqdPCeR633d6vkk7usqeT cuBZ6kKgiWKZaxgqlOeJ3HZ gyRYXyhbjmBKf9OIbqHSSsb GH6ZXAjxGNuN0JuHZPxYD5u pui7NMR2HGlcOTYvYzE0BDP veKPiJZIpwUaiRXefe687FZ C1XdWjDDZfjwOyoWmnxI9hC nNkKORJCSIvw4LeSLPnPXAj cn0= SPECIAL STUDIES (test n9cffVIxBSAvdQF3ElZcVTN code = 3376) bd9gab3EagPSsdIFdHCbilU HykwSshz00oMV9tS62GP8qM CAdHxI1QCBymjA0Pnk8UGOv ZKObiXJjS392YPAlDOQzoOv wsdo9gJ05DLJuxQ9xmFXtEZ ypwrZtVTcutsAqdkRlMjl4V MT6yVheDQXmwxoeLzW0MDbd RVWtznupUVy6XBcoJPZsnQV 7XHTdaFEpB9ItVNLkBW8nej j8VRV6RWeoMMWvPxQ5GBZlj SQmAHXudAjvILnzd957MUJ7 JxTxJZMroqEgvUxdpI6cGeC cZnMyMlxjZjEgVGhlIGludG VseROxdSP4kT6jYU0yRFHzm NEaZ2RuSQPnzdOytLIuFWQ8 oZYveEFlRK8zKRsllGGmh2l ht3QuI2razVtaqQD2LM7dWB YwMHYuMXaoo6AtcZ4hMmuxT RSjZ2NsMVPYR5VLLIXwWFDU Qe1ETsMMIrNfWcYRXl4aAPp NUywgQUZCXHBhclxwYXJkXG QxVEMYq038wo8aWGOqbCMhj hLWxZNrhQ9pNLeuOVbaALou uRVhSMurw7jrEGAgq3i5sQD yGHBozmYgd7etKArpgwMnLH RezPNhtKVbRNLmv01bNRlmv KgpmWnpNGVfh3FrbMmon6Gd MxXzASumy6ZoI65tdKMxvVU kkQvyMPQvtiJyXFNfq73kk4 ejUFOqGkH8tZHraHX9xSCaq IQck1RhjDxgVRYal8ziVPSh xj4ltfdxdJQzz6AtiA8xuzz oBRspeEUohwEgQUFtu3w2jN UfNEDxNNGfTRifbWr8YIEvs 867kf6agnS2lCVeSFU8TYtv YWJsZSBhcmUgZXZhbHVhdGV uKNEslcIiYLLhujAGqQ93ua 9voKU3f7NlRN6tp9CopUT3S WNobmljYWwgdGVzdGluZyB3 GJFvtMXuVg4nhSVmKUB8GPQ riXxlxbXAxX9hFFMmQSi0IN FpXbEtJocjdfXJICXlC1QzT RVyycUujrxoRFP3yY6fm9b9 GKamTh3cUSFkrlgtz6nnjlT yyCAch4NuPIRtpsXgg6RkHM FzedZcrCCxFIEjclYonl9xf qPtFYVnSIDlX6ZnwjvhtXpy ueX8NMYxIQPeoQBfiDomMDN xCUl5UXbqvlRkm0XaQcIhkc DxdNIdvsRySX2rCWRmlQCod jBlZYA4TNRgELGZSoUmFOXa g6WyAI5rYWAcwSceBVRbiE2 wj3AuLWBai08yFSTzNAOUZX EgaGFzIGRldGVybWluZWQgd TfyaVKiuAIzIGYrASDrXS5u RZUqneKapYMbj4PhqKKihoF tw4PjiqDbVGZqUEM8BtSEqH BcfASomCJqvpR9w2MdRNEwp dWtuSmqfIUjcBPqaWXgp0Eg tf4kAQRwo6zejTjlBB2lsCY iZSByZWdhcmRlZCBhcyBpbn Tca8RoX2U3zE6dUAlqj4UmH h3lHTJgh9ValaMqWtNDzQdb UOnmYz3aSZWjualqpHWoG4M ydGlmaWVkIHVuZGVyIHRoZS YNmMxflLKasFIEBJUdvrT7j 6P1YDrksRBcqbScBQ41DBPe ZS6icEAxyQDel7FtUOi7NDF cG7dRMC93KVkjUZPysYLdhZ oefZSjTCIuFWCpjbAlgu0bq MxknCRhc38uvHL3pMN5ZPWn kK2bR1QdKNjyCg5mSFEjbli vaZZdyDqaBv7euUUgjY== Gross assessment was [facility]'s performed at [facility], code = 2777) Department of Pathology, [address] [place] [address] 10732, Technical component [facility] was performed at ([place], code = 2778) Department of Pathology, [address] [place] [address] 19030, Professional component [facility] was performed at ([place], code = 2779) Department of Pathology, [address] [place] [address] 65223, [facility] [id number] 12:37:44 Test Item Value Reference Range Interpretation Comments POC-GLUCOSE METER 98 mg/dL 70-110 : TESTED A T [facility] 6720 (BEAKER) (test code = [facility], 1538) 14135: Bird Raiser/Techni kelle ID = [id number] for Kathleen fay (contract)Yohan POCT-GLUCOSE [id number] 08:40:16 Test Item Value Reference Range Interpretation Comments POC-GLUCOSE METER 120 mg/dL 70-110 H : TESTED A T [facility] 6720 (BEAKER) (test code = [facility], 1538) 99693: Bird Raiser/Techni kelle ID = [id number] for Aditya brewer (contract), [facility] BASIC METABOLIC [id number] 04:46:57 Test Item Value Reference Range Interpretation [...] S NOT APPLICABLE FOR DIALYSIS PATIEN TS. Bird Raiser ID - HIEN MRAD, CHEST, 1 VIEW, NON [id number] 04:07:00Reason for exam:->post-opShould this be performed at the bedside?->Yes [facility] : 1955 Sex: FFINAL REPORT RAD, CHEST, 1 VIEW, NON DEPT INDICATION: post-op COMPARISON: Prior day's exam FINDINGS: Portable frontal view of the chest. IMPRESSION: Support Lines: Stable. Lungs and pleura: No interval consolidation or sizable effusion. No pneumothorax. Heart and mediastinum: Stablecontours. Additional findings: None. Signed: Andrew Cary Verified Date/Time: 06/24/2021 04:07:26 [id number] 03:54:16 Test Item Value Reference Range Interpretation Comments PHOSPHORUS (BEAKER) (test code = 4.3 mg/dL 2.3-4.7 604) Bird Raiser ID - HIEN [id number] 03:54:15 Test Item Value Reference Range Interpretation Comments MAGNESIUM (BEAKER) (test code = 2.4 mg/dL 1.6-2.6 627) Bird Raiser ID - HIEN [id number] 03:40:54 Test Item Value Reference Range Interpretation Comments PARTIAL THROMBOPLASTIN TIME 40.8 seconds 22.5-36.0 H (BEAKER) (test code = 760) PROTHROMBIN TIME/[id number] 03:39:49 Test Item Value Reference Range Interpretation Comments PROTIME (BEAKER) 13.1 seconds 11.9-14.2 (test code = 759) INR (BEAKER) (test 1.01 See_Comment [Automat ed message] code = 370) The system [employer] generated this result transmitted ref erence range: [...] WBC 0-0 (test code = 413) POCT-GLUCOSE [id number] 21:07:58 Test Item Value Reference Range Interpretation Comments POC-GLUCOSE METER 143 mg/dL 70-110 H : TESTED A T [facility] 6720 (BEAKER) (test code = [facility], 1538) 89775: Bird Raiser/Techni kelle ID = [id number] for Sheryl Bergeron POCT-GLUCOSE [id number] 16:23:05 Test Item Value Reference Range Interpretation Comments POC-GLUCOSE METER 126 mg/dL 70-110 H : TESTED A T [facility] 6720 (BEAKER) (test code = [facility], 1538) 35948: Bird Raiser/Techni kelle ID = [id number] for BE RNABE, OSMANY BASIC METABOLIC [id number] 13:28:45 Test Item Value Reference Range Interpretation [...] S NOT APPLICABLE FOR DIALYSIS PATIEN TS. Bird Raiser ID - HIEN MPOCT-GLUCOSE [id number] 11:56:58 Test Item Value Reference Range Interpretation Comments POC-GLUCOSE METER 122 mg/dL 70-110 H : TESTED A T [facility] 6720 (BEAKER) (test code = [facility], 1538) 48410: Bird Raiser/Techni kelle ID = [id number] for BE RNABE, OSMANY 2D Echo W/Doppler(CW/PW/Color)2021-06-23 08:20:29Ejection FractionSLEH ECHO HEARTLAB [facility]Do[facility](CW/PW/Color)2021-06-23 08:20:29Ejection [facility]SLEH [facility]CW/PW/Color[facility] 2021-06-23 08:20:29Ejection FractionSLEH [facility]/Doppler(CW/PW/Color)2021-06-23 08:20:29Ejection FractionSLEH ECHO HEARTLAB [facility] Echo W/Doppler(CW/PW/Color)2021-06-23 08:20:29Ejection FractionSLEH ECHO HEARTLAB [facility] W/Doppler(CW/PW/Color) 2021-06-23 08:20:29Ejection FractionSLEH ECHO HEARTLAB [facility] W/Doppler(CW/PW/Color)2021-06-23 08:20:29Ejection FractionSLEH ECHO HEARTLAB [facility] W/Doppler(CW/PW/Color)2021-06-23 08:20:29Ejection FractionSLEH ECHO HEARTLAB [facility] W/Doppler(CW/PW/Color) 2021-06-23 08:20:29Ejection FractionSLEH ECHO [facility]Doppler(CW/PW/Color)2021-06-23 08:20:29Ejection FractionSLEH ECHO HEARTLAB [facility] Echo W/Doppler(CW/PW/Color)2021-06-23 08:20:29Ejection FractionSLEH ECHO HEARTLAB [facility] W/Doppler(CW/PW/Color) 2021-06-23 08:20:29Ejection FractionSLEH ECHO HEARTLAB [facility] Echo W/Doppler(CW/PW/Color)2021-06-23 08:20:29Ejection FractionSLEH ECHO HEARTLAB [facility] Echo W/Doppler(CW/PW/Color)2021-06-23 08:20:29Ejection FractionSLEH ECHO HEARTLAB [facility] Echo W/Doppler(CW/PW/Color) 2021-06-23 08:20:29Ejection FractionSLEH ECHO HEARTLAB [facility] Echo W/Doppler(CW/PW/Color)2021-06-23 08:20:29Ejection FractionSLEH ECHO HEARTLAB [facility] Echo W/Doppler(CW/PW/Color)2021-06-23 08:20:29Ejection FractionSLE ECHO HEARTLAB [facility] [id number] 07:43:14 Test Item Value Reference Range Interpretation Comments POC-GLUCOSE METER 111 mg/dL 70-110 H : TESTED A T [facility] 6720 (BEAKER) (test code = YUDY [facility], 1538) 66842: Bird Raiser/Techni kelle ID = [id number] for OSMANY VOGEL BASIC METABOLIC [id number] 05:48:55 Test Item Value Reference Range Interpretation [...] S NOT APPLICABLE FOR DIALYSIS PATIEN TS. Bird Raiser ID - HIEN [id number] 05:28:52 Test Item Value Reference Range Interpretation Comments PHOSPHORUS (BEAKER) (test code = 3.7 mg/dL 2.3-4.7 604) Bird Raiser ID - HIEN [id number] 05:28:51 Test Item Value Reference Range Interpretation Comments MAGNESIUM (BEAKER) (test code = 2.2 mg/dL 1.6-2.6 627) Bird Raiser ID - HIEN MRAD, CHEST, 1 VIEW, NON [id number] 05:08:00Reason for exam:->post-opShould this be performed at [...] None. Signed: Andrew Cary VerifiedDate/Time: 06/23/2021 05:08:22 [id number] 03:01:03 Test Item Value Reference Range Interpretation Comments PARTIAL THROMBOPLASTIN TIME 35.7 seconds 22.5-36.0 (BEAKER) (test code = 760) PROTHROMBIN TIME/[id number] 03:00:01 Test Item Value Reference Range Interpretation Comments PROTIME (BEAKER) 13.3 seconds 11.9-14.2 (test code = 759) INR (BEAKER) (test 1.03 See_Comment [Automat ed message] code = 370) The system [employer] generated this result transmitted ref erence range: [...] WBC 0-0 (test code = 413) POCT-GLUCOSE [id number] 22:23:22 Test Item Value Reference Range Interpretation Comments POC-GLUCOSE METER 146 mg/dL 70-110 H : TESTED A T [facility] 6720 (BEAKER) (test code = [facility], 1538) 38140: Bird Raiser/Techni kelle ID = [id number] for [place] MS, S[place] POCT-GLUCOSE [id number] 18:28:19 Test Item Value Reference Range Interpretation Comments POC-GLUCOSE METER 101 mg/dL 70-110 : TESTED A T [facility] 6720 (BEAKER) (test code = [facility], 1538) 09692: Bird Raiser/Techni kelle ID = [id number] for [place] rene (contract), Amb er BASIC METABOLIC [id number] 14:57:30 Test Item Value Reference Range Interpretation [...] S NOT APPLICABLE FOR DIALYSIS PATIEN TS. Bird Raiser ID - AAHAMIDPOCT-GLUCOSE [id number] 12:37:53 Test Item Value Reference Range Interpretation Comments POC-GLUCOSE METER 69 mg/dL 70-110 L : TESTED A T [facility] 6720 (BEAKER) (test code = [facility], 1538) 04416: Bird Raiser/Techni kelle ID = [id number] for Hole y (contract), Amb er Oxygen saturation, [id number] 10:49:59 Test Item Value Reference Range Interpretation Comments O2 Saturation (Measured) (test code = 79.8 % 30889-7) [facility], [id number] 10:49:59 Test Item Value Reference Range Interpretation Comments O2 Saturation (Measured) (test code = 79.8 % 78981-2) [facility], [id number] 10:49:59 Test Item Value Reference Range Interpretation Comments O2 Saturation (Measured) (test code = 79.8 % 31224-2) [facility], [id number] 10:49:59 Test Item Value Reference Range Interpretation Comments O2 Saturation (Measured) (test code = 79.8 % 93240-5) [facility], [id number] 10:49:59 Test Item Value Reference Range Interpretation Comments O2 Saturation (Measured) (test code = 79.8 % 60149-6) [facility], [id number] 10:49:59 Test Item Value Reference Range Interpretation Comments O2 Saturation (Measured) (test code = 79.8 % 76708-0) [facility], [id number] 10:49:59 Test Item Value Reference Range Interpretation Comments O2 Saturation (Measured) (test code = 79.8 % 24834-7) [facility], [id number] 10:49:59 Test Item Value Reference Range Interpretation Comments O2 Saturation (Measured) (test code = 79.8 % 55367-3) [facility], [id number] 10:49:59 Test Item Value Reference Range Interpretation Comments O2 Saturation (Measured) (test code = 79.8 % 56013-7) [facility], [id number] 10:49:59 Test Item Value Reference Range Interpretation Comments O2 Saturation (Measured) (test code = 79.8 % 48193-3) [facility], [id number] 10:49:59 Test Item Value Reference Range Interpretation Comments O2 Saturation (Measured) (test code = 79.8 % 70184-2) [facility], [id number] 10:49:59 Test Item Value Reference Range Interpretation Comments O2 Saturation (Measured) (test code = 79.8 % 99999-6) [facility], [id number] 10:49:59 Test Item Value Reference Range Interpretation Comments O2 Saturation (Measured) (test code = 79.8 % 14230-1) [facility], [id number] 10:49:59 Test Item Value Reference Range Interpretation Comments O2 Saturation (Measured) (test code = 79.8 % 32161-8) [facility], [id number] 10:49:59 Test Item Value Reference Range Interpretation Comments O2 Saturation (Measured) (test code = 79.8 % 48860-9) [facility], [id number] 10:49:59 Test Item Value Reference Range Interpretation Comments O2 Saturation (Measured) (test code = 79.8 % 58181-2) [facility], [id number] 10:49:59 Test Item Value Reference Range Interpretation Comments O2 Saturation (Measured) (test code = 79.8 % 23289-9) [facility] HospitalOXYGEN SATURATION, [id number] 10:49:59 Test Item Value Reference Range Interpretation Comments O2 SATURATION (MEASURED) (BEAKER) 79.8 % (test code = 1455) BASIC METABOLIC [id number] 07:15:45 Test Item Value Reference Range Interpretation [...] S NOT APPLICABLE FOR DIALYSIS PATIEN TS. Bird Raiser ID - DBRAD, CHEST, 1 VIEW, NON [id number] 03:19:00Reason for exam:->post-opShould this be performed at the bedside?->Yes [facility] : 1955 Sex: FFINAL REPORT CLINICAL INDICATION: post-op Comparison: 06/21/2021 The cardiomediastinal contours are stable. The lung volumes remain low. Central pulmonary vascular congestion and bilateral parenchymal opacities are unchanged. There is no pneumothorax. Support lines are stable. Signed:Braxton Quintero MDReport Verified Date/Time: 06/22/2021 03:19:08 BASIC METABOLIC [id number] 02:00:09 Test Item Value Reference Range Interpretation [...] S NOT APPLICABLE FOR DIALYSIS PATIEN TS. Bird Raiser ID - [id number] 01:57:06 Test Item Value Reference Range Interpretation Comments MAGNESIUM (BEAKER) 2.5 mg/dL 1.6-2.6 Specimen slightly (test code = 627) hemolyzed Bird Raiser ID - [id number] 01:57:06 Test Item Value Reference Range Interpretation Comments PHOSPHORUS (BEAKER) 5.0 mg/dL 2.3-4.7 H Specimen slightly (test code = 604) hemolyzed Bird Raiser ID - [id number] 01:54:46 Test Item Value Reference Range Interpretation Comments PARTIAL THROMBOPLASTIN TIME 37.8 seconds 22.5-36.0 H (BEAKER) (test code = 760) PROTHROMBIN TIME/[id number] 01:53:47 Test Item Value Reference Range Interpretation Comments PROTIME (BEAKER) 16.4 seconds 11.9-14.2 H (test code = 759) INR (BEAKER) (test 1.34 See_Comment [Automat ed message] code = 370) The system [employer] generated this result transmitted ref erence range: [...] WBC 0-0 (test code = 413) POCT-GLUCOSE [id number] 21:22:08 Test Item Value Reference Range Interpretation Comments POC-GLUCOSE METER 73 mg/dL 70-110 : TESTED A T [facility] 6720 (BEAKER) (test code = [facility], 1538) [id number]: Bird Raiser/Techni kelle ID = [id number] for Rodríguez Rojas POCT-GLUCOSE [id number] 19:10:01 Test Item Value Reference Range Interpretation Comments POC-GLUCOSE METER 83 mg/dL 70-110 : TESTED A T [facility] 67[address] (BEAKER) (test code = [facility], 1538) 21497: Bird Raiser/Techni kelle ID = [id number] for AMALIABarb JANEHATTIE BASIC METABOLIC [id number] 14:08:36 Test Item Value Reference Range Interpretation [...] S NOT APPLICABLE FOR DIALYSIS PATIEN TS. Bird Raiser ID - DBPOCT-GLUCOSE [id number] 13:42:11 Test Item Value Reference Range Interpretation Comments POC-GLUCOSE METER 72 mg/dL 70-110 : TESTED A T [facility] 67[facility] (BEAKER) (test code = [facility] [place], 1538) 06265: Bird Raiser/Techni kelle ID = [id number] for Sun(contract )[facility] Surgically obtained culture + gram [id number] 11:46:53 Test Item Value Reference Range Interpretation Comments Result (test code = 6463-4) No growth Gram Stain Result (test No organisms seen code = 1123) [facility] [id number] 11:46:53 Test Item Value Reference Range Interpretation Comments Result (test code = 6463-4) No growth Gram Stain Result (test No organisms seen code = 1123) [facility] gram [id number] 11:46:53 Test Item Value Reference Range Interpretation Comments Result (test code = 6463-4) No growth Gram Stain Result (test No organisms seen code = 1123) [facility] gram [id number] 11:46:53 Test Item Value Reference Range Interpretation Comments Result (test code = 6463-4) No growth Gram Stain Result (test No organisms seen code = 1123) [facility] gram [id number] 11:46:53 Test Item Value Reference Range Interpretation Comments Result (test code = 6463-4) No growth Gram Stain Result (test No organisms seen code = 1123) [facility] gram [id number] 11:46:53 Test Item Value Reference Range Interpretation Comments Result (test code = 6463-4) No growth Gram Stain Result (test No organisms seen code = 1123) [facility] gram [id number] 11:46:53 Test Item Value Reference Range Interpretation Comments Result (test code = 6463-4) No growth Gram Stain Result (test No organisms seen code = 1123) [facility] [id number] 11:46:53 Test Item Value Reference Range Interpretation Comments Result (test code = 6463-4) No growth Gram Stain Result (test No organisms seen code = 1123) [facility] + gram [id number] 11:46:53 Test Item Value Reference Range Interpretation Comments Result (test code = 6463-4) No growth Gram Stain Result (test No organisms seen code = 1123) [facility] gram [id number] 11:46:53 Test Item Value Reference Range Interpretation Comments Result (test code = 6463-4) No growth Gram Stain Result (test No organisms seen code = 1123) [facility] gram [id number] 11:46:53 Test Item Value Reference Range Interpretation Comments Result (test code = 6463-4) No growth Gram Stain Result (test No organisms seen code = 1123) [facility] gram [id number] 11:46:53 Test Item Value Reference Range Interpretation Comments Result (test code = 6463-4) No growth Gram Stain Result (test No organisms seen code = 1123) [facility] + gram [id number] 11:46:53 Test Item Value Reference Range Interpretation Comments Result (test code = 6463-4) No growth Gram Stain Result (test No organisms seen code = 1123) [facility] gram [id number] 11:46:53 Test Item Value Reference Range Interpretation Comments Result (test code = 6463-4) No growth Gram Stain Result (test No organisms seen code = 1123) [facility] gram [id number] 11:46:53 Test Item Value Reference Range Interpretation Comments Result (test code = 6463-4) No growth Gram Stain Result (test No organisms seen code = 1123) [facility] gram [id number] 11:46:53 Test Item Value Reference Range Interpretation Comments Result (test code = 6463-4) No growth Gram Stain Result (test No organisms seen code = 1123) [facility] ihign6046-05-01 11:46:53 Test Item Value Reference Range Interpretation Comments Result (test code = 6463-4) No growth Gram Stain Result (test No organisms seen code = 1123) [facility] GRAM [id number] 11:46:53 Test Item Value Reference Range Interpretation Comments CULTURE (BEAKER) (test code No growth = 1095) GRAM STAIN RESULT (BEAKER) 1+ WBCs (test code = 1123) GRAM STAIN RESULT (BEAKER) No organisms seen (test code = 53381) RAD, CHEST, 1 VIEW, NON [id number] 06:05:00Reason for exam:->post-opShould this be performed at [...] findings: None. Signed: Andrew Caryeport Verified Date/Time: 06/21/2021 06:05:24 BASIC METABOLIC [id number] 03:54:19 Test Item Value Reference Range Interpretation [...] S NOT APPLICABLE FOR DIALYSIS PATIEN TS. Bird Raiser ID - [id number] 03:49:06 Test Item Value Reference Range Interpretation Comments PHOSPHORUS (BEAKER) (test code = 4.5 mg/dL 2.3-4.7 604) Bird Raiser ID - [id number] 03:49:05 Test Item Value Reference Range Interpretation Comments MAGNESIUM (BEAKER) (test code = 2.4 mg/dL 1.6-2.6 627) Bird Raiser ID - DBCBC (HEMOGRAM ONLY)2021-06-21 03:45:10 Test [...] /100 WBC 0-0 (test code = 413) [id number] 03:45:00 Test Item Value Reference Range Interpretation Comments PARTIAL THROMBOPLASTIN TIME 35.5 seconds 22.5-36.0 (BEAKER) (test code = 760) PROTHROMBIN TIME/[id number] 03:44:22 Test Item Value Reference Range Interpretation Comments PROTIME (BEAKER) 14.1 seconds 11.9-14.2 (test code = 759) INR (BEAKER) (test 1.11 See_Comment [Automat ed message] code = 370) The system [employer] generated this result transmitted ref erence range: <=5.90. The reference range was not used to int erpret this result as normal/abnormal . RECOMMENDED COUMADIN/WARFARIN INR THERAPY RANGESSTANDARD DOSE: 2.0 - 3.0 Includes: PROPHYLAXIS for venous thrombosis, systemic embolization; TREATMENT for venous thrombosis and/or pulmonary embolus.HIGH RISK: Target INR is 2.5-3.5 for patients with mechanical heart valves.BASIC METABOLIC [id number] 18:24:15 Test Item Value Reference Range Interpretation [...] S NOT APPLICABLE FOR DIALYSIS PATIEN TS. Bird Raiser ID - PIAYA LPOCT-GLUCOSE [id number] 13:44:48 Test Item Value Reference Range Interpretation Comments POC-GLUCOSE METER 165 mg/dL 70-110 H : TESTED A T [facility] 6720 (BEAKER) (test code = YUDY WHITE [place], 1538) [address]: Bird Raiser/Techni kelle ID = [id number] for KOTA ARIAS SARS-CoV2/RT-PCR (Asymptomatic ONLY)2021-06-20 11:58:08 Test Item Value Reference Range Interpretation Comments SARS-COV2/RT-PCR Negative Not Detected, (test code = Negative, See 14407-9) external report for linked test SARS-COV-2 [facility] ALICIA PERFORMING LAB (test code = 19745-7) BRANDI (test code = Negative result for [...] of the Act. Fact Sheet for Healthcare Providers:https://www.[employer]/sites/default/f radha/product/documents/F act_Sheet_HC_Providers_L cbg_DGEN-XwX-7.pdf Fact Sheet for Healthcare Patients:https://www.Wesabe/sites/default/fi les/product/documents/Fa ct_Sheet_Patients_Lyra_S ARS-CoV-2.pdf Performing Laboratory:[facility], [place] [address] [place], [place] [address]ARS-CoV2/RT-PCR (Asymptomatic ONLY)2021-06-20 11:58:08 Test Item Value Reference Range Interpretation Comments SARS-COV2/RT-PCR Negative Not Detected, (test code = Negative, See 55683-0) external report for linked test SARS-COV-2 [facility] ALICIA PERFORMING LAB (test code = 79892-4) BRANDI (test code = Negative result for [...] of the Act. Fact Sheet for Healthcare Providers:https://www.[employer]Post/sites/default/f radha/product/documents/F act_Sheet_HC_Providers_L pzb_JLAI-BzP-8.pdf Fact Sheet for Healthcare Patients:https://www.[employer].YuMingle/sites/default/fi les/product/documents/Fa ct_Sheet_Patients_Lyra_S ARS-CoV-2.pdf Performing Laboratory:[facility] [place] [address] [facility] ([facility])2021-06-20 11:58:08 Test Item Value Reference Range Interpretation Comments SARS-COV2/RT-PCR (test Negative Not Detected, Negative, code = 9680065) See external report for linked test SARS-COV-2 PERFORMING LAB [facility] ALICIA (test code = 9337276) Negative result for this test determines that [...] of the Act.Fact Sheet for Healthcare Prov iders:https://www.[employer].YuMingle/sites/default/files/product/documents/Fact_Sheet_HC _Nskverqaq_Rile_IWVE-YaX-9.pdfFact Sheet for Healthcare Patients:https://www.[employer].YuMingle/sites/default/files/product/docume nts/Orgl_Ogjlq_Agrdrqai_Hgml_QSPO-ViT-6.pdfPerforming Laboratory:[facility], [place] [address]QVRT-FBZEAVF METER 2021-06-20 06:30:37 Test Item Value Reference Range Interpretation Comments POC-GLUCOSE METER 145 mg/dL 70-110 H : TESTED A T [facility] [address] ([employer] [employer]) (test code GISELLA [facility], = 1538) [address]: Bird Raiser/Techni kelle ID = [id number] for Tash wiseman (contract), Adal hernandez RAD, CHEST, 1 VIEW, NON [id number] 06:25:00Reason for exam:->post-opShould this be performed at the bedside?->Yes [facility] : 1955 Sex: FFINAL REPORT RAD, CHEST, 1 VIEW, NON DEPT INDICATION: post-op COMPARISON: Prior day's exam FINDINGS: Portable frontal view of the chest. IMPRESSION: Support Lines: Interval extubation. A drainage catheter overlies the upper abdomen and lower hemidiaphragm in the center. [place] tipoverlies the pulmonary outflow tract. Pacer device and sternotomy wires are unchanged. Lungs and pleura: Bilateral effusions and adjacent compressive atelectasis are unchanged No significant pneumothorax. Heart and mediastinum: Normal contours. Additional findings: None. Signed: [facility] Verified Date/Time: 06/20/2021 06:25:51 Electronically signed by: BAYRON COSME MD on 0 06/20/2021 06:25 [id number] 02:12:20 Test Item Value Reference Range Interpretation Comments PARTIAL THROMBOPLASTIN TIME 35.8 seconds 22.5-36.0 (BEAKER) (test code = 760) PROTHROMBIN TIME/[id number] 02:11:37 Test Item Value Reference Range Interpretation Comments PROTIME (BEAKER) 15.4 seconds 11.9-14.2 H (test code = 759) INR (BEAKER) (test 1.24 See_Comment [Automat ed message] code = 370) The system [employer] generated this result transmitted ref erence range: <=5.90. The reference range was not used to int erpret this result as normal/abnormal . RECOMMENDED COUMADIN/WARFARIN INR THERAPY RANGESSTANDARD DOSE: 2.0 - 3.0 Includes: PROPHYLAXIS for venous thrombosis, systemic embolization; TREATMENT for venous thrombosis and/or pulmonary embolus.HIGH RISK: Target INR is 2.5-3.5 for patients with mechanical heart valves.BASIC METABOLIC [id number] 02:08:36 Test Item Value Reference Range Interpretation [...] S NOT APPLICABLE FOR DIALYSIS PATIEN TS. Bird Raiser ID - [id number] 01:57:56 Test Item Value Reference Range Interpretation Comments PHOSPHORUS (BEAKER) (test code = 4.1 mg/dL 2.3-4.7 604) Bird Raiser ID - [id number] 01:57:55 Test Item Value Reference Range Interpretation Comments MAGNESIUM (BEAKER) (test code = 2.2 mg/dL 1.6-2.6 627) Bird Raiser ID - DBCBC (HEMOGRAM ONLY)2021-06-20 01:36:09 Test [...] 0-0 (test code = 413) Blood gas, [id number] 01:27:29 Test Item Value Reference Range Interpretation [...] 28 Lab Interpretation Abnormal (test code = 00166-3) [facility] xewrspdt5468-69-80 01:27:29 Test Item Value Reference Range Interpretation [...] 28 Lab Interpretation Abnormal (test code = 44995-6) [facility], qmmcwidg5818-70-91 01:27:29 Test Item Value Reference Range Interpretation [...] 28 Lab Interpretation Abnormal (test code = 53515-6) [facility], zbgljouo5680-04-85 01:27:29 Test Item Value Reference Range Interpretation [...] 28 Lab Interpretation Abnormal (test code = 91802-5) [facility], rkdezmpd3538-52-79 01:27:29 Test Item Value Reference Range Interpretation [...] 28 Lab Interpretation Abnormal (test code = 80591-2) [facility], otfpkxee1457-12-02 01:27:29 Test Item Value Reference Range Interpretation [...] 28 Lab Interpretation Abnormal (test code = 31411-1) [facility] gas, vuldoyel9613-16-77 01:27:29 Test Item Value Reference Range Interpretation [...] 28 Lab Interpretation Abnormal (test code = 70367-2) [facility] gas, nxqhzkxq5466-36-86 01:27:29 Test Item Value Reference Range Interpretation [...] 28 Lab Interpretation Abnormal (test code = 23684-4) [facility] gas, elxenwri5375-92-14 01:27:29 Test Item Value Reference Range Interpretation [...] 28 Lab Interpretation Abnormal (test code = 84736-9) [facility], pegtdcuo3172-51-49 01:27:29 Test Item Value Reference Range Interpretation [...] 28 Lab Interpretation Abnormal (test code = 72956-4) [facility], qqrldnjs1575-41-51 01:27:29 Test Item Value Reference Range Interpretation [...] 28 Lab Interpretation Abnormal (test code = 33793-2) [facility], [id number] 01:27:29 Test Item Value Reference Range Interpretation [...] 28 Lab Interpretation Abnormal (test code = 20339-3) [facility], fgvlamtj9588-86-89 01:27:29 Test Item Value Reference Range Interpretation [...] 28 Lab Interpretation Abnormal (test code = 76466-8) [facility], gxhcrcwx3422-90-41 01:27:29 Test Item Value Reference Range Interpretation [...] 28 Lab Interpretation Abnormal (test code = 23884-2) [facility], iobnmnwi5155-46-72 01:27:29 Test Item Value Reference Range Interpretation [...] 28 Lab Interpretation Abnormal (test code = 98500-3) [facility], murchmjh5832-14-63 01:27:29 Test Item Value Reference Range Interpretation [...] 28 Lab Interpretation Abnormal (test code = 68707-6) [facility], cgynetgg1813-89-08 01:27:29 Test Item Value Reference Range Interpretation [...] 28 Lab Interpretation Abnormal (test code = 09763-6) [facility] GAS, [id number] 01:27:29 Test Item Value Reference Range Interpretation [...] (BEAKER) (test code = 1819) 28.0 Calcium, [id number] 01:26:07 Test Item Value Reference Range Interpretation Comments Calcium, Ion (test code = 1993-) 1.17 mmol/L 1.12-1.27 pH, Blood (test code = 07083-4) 7.39 [facility], Gzzmwlt0650-50-45 01:26:07 Test Item Value Reference Range Interpretation Comments Calcium, Ion (test code = 1993-06) 1.17 mmol/L 1.12-1.27 pH, Blood (test code = 91391-7) 7.39 [facility], Ccruyfq5774-67-66 01:26:07 Test Item Value Reference Range Interpretation Comments Calcium, Ion (test code = 1993-06) 1.17 mmol/L 1.12-1.27 pH, Blood (test code = 17243-8) 7.39 [facility], Gxpbdcs1730-06-78 01:26:07 Test Item Value Reference Range Interpretation Comments Calcium, Ion (test code = 1993-06) 1.17 mmol/L 1.12-1.27 pH, Blood (test code = 37058-1) 7.39 [facility], [id number] 01:26:07 Test Item Value Reference Range Interpretation Comments Calcium, Ion (test code = 1993-06) 1.17 mmol/L 1.12-1.27 pH, Blood (test code = 34134-3) 7.39 [facility], Vovwwwv9022-20-96 01:26:07 Test Item Value Reference Range Interpretation Comments Calcium, Ion (test code = 1993-06) 1.17 mmol/L 1.12-1.27 pH, Blood (test code = 38254-9) 7.39 [facility], Lisulzb2248-77-59 01:26:07 Test Item Value Reference Range Interpretation Comments Calcium, Ion (test code = 1993-06) 1.17 mmol/L 1.12-1.27 pH, Blood (test code = 13698-0) 7.39 [facility], Mkdjeha6519-41-64 01:26:07 Test Item Value Reference Range Interpretation Comments Calcium, Ion (test code = 1993-06) 1.17 mmol/L 1.12-1.27 pH, Blood (test code = 95111-0) 7.39 [facility], Jrqdzxs0714-64-96 01:26:07 Test Item Value Reference Range Interpretation Comments Calcium, Ion (test code = 1993-06) 1.17 mmol/L 1.12-1.27 pH, Blood (test code = 63271-2) 7.39 [facility], Eklpuyc8480-80-91 01:26:07 Test Item Value Reference Range Interpretation Comments Calcium, Ion (test code = 1993-06) 1.17 mmol/L 1.12-1.27 pH, Blood (test code = 39974-8) 7.39 [facility], Txxwjgd3878-02-75 01:26:07 Test Item Value Reference Range Interpretation Comments Calcium, Ion (test code = 1993-06) 1.17 mmol/L 1.12-1.27 pH, Blood (test code = 67621-0) 7.39 [facility], Mfcxgbz2794-22-52 01:26:07 Test Item Value Reference Range Interpretation Comments Calcium, Ion (test code = 1993-06) 1.17 mmol/L 1.12-1.27 pH, Blood (test code = 67505-4) 7.39 [facility], Dwshqsk7561-94-90 01:26:07 Test Item Value Reference Range Interpretation Comments Calcium, Ion (test code = 1993-06) 1.17 mmol/L 1.12-1.27 pH, Blood (test code = 29503-7) 7.39 [facility], [id number] 01:26:07 Test Item Value Reference Range Interpretation Comments Calcium, Ion (test code = 1993-06) 1.17 mmol/L 1.12-1.27 pH, Blood (test code = 75105-3) 7.39 [facility], Ecqcvgs6590-93-15 01:26:07 Test Item Value Reference Range Interpretation Comments Calcium, Ion (test code = 1993-06) 1.17 mmol/L 1.12-1.27 pH, Blood (test code = 76240-6) 7.39 [facility], Isvhmzv3330-68-32 01:26:07 Test Item Value Reference Range Interpretation Comments Calcium, Ion (test code = 1993-06) 1.17 mmol/L 1.12-1.27 pH, Blood (test code = 44610-9) 7.39 [facility], Nfcrioa1471-16-09 01:26:07 Test Item Value Reference Range Interpretation Comments Calcium, Ion (test code = 1994-3) 1.17 mmol/L 1.12-1.27 pH, Blood (test code = 40598-5) 7.39 [facility] HospitalCAL[facility], [id number] 01:26:07 Test Item Value Reference Range Interpretation Comments CALCIUM IONIZED (BEAKER) (test 1.17 mmol/L 1.12-1.27 code = 698) PH, BLOOD (BEAKER) (test code = 7.39 1810) Prepare [id number] 23:55:00 Test Item Value Reference Range Interpretation Comments Unit ABO (test code = 8577690) A Pos UNIT NUMBER (test code = [id number] 934-0) Status (test code = 2705174) [place]_TIMEINCHART Blood Bank Product (test code PLATELETS = 2263) PRODUCT CODE (test code = F1020S02 933-2) [facility] [id number] 23:55:00 Test Item Value Reference Range Interpretation Comments Unit ABO (test code = 0933399) A Pos UNIT NUMBER (test code = [id number] 934-0) Status (test code = 0579537) TX_TIMEINCHART Blood Bank Product (test code PLATELETS = 2263) PRODUCT CODE (test code = U5794G71 933-2) [facility] [id number] 23:55:00 Test Item Value Reference Range Interpretation Comments Unit ABO (test code = 2768444) A Pos UNIT NUMBER (test code = [id number] 934-0) Status (test code = 5854010) TX_TIMEINCHART Blood Bank Product (test code PLATELETS = 2263) PRODUCT CODE (test code = V5422F90 933-2) [facility] [id number] 23:55:00 Test Item Value Reference Range Interpretation Comments Unit ABO (test code = 8985115) A Pos UNIT NUMBER (test code = [id number] 934-0) Status (test code = 9790693) [place]_TIMEINCHART Blood Bank Product (test code PLATELETS = 2263) PRODUCT CODE (test code = P7554F31 933-2) [facility] [id number] 23:55:00 Test Item Value Reference Range Interpretation Comments Unit ABO (test code = 9918195) A Pos UNIT NUMBER (test code = [id number] 934-0) Status (test code = 5818747) TX_TIMEINCHART Blood Bank Product (test code PLATELETS = 2263) PRODUCT CODE (test code = S8331F86 933-2) [facility] [id number] 23:55:00 Test Item Value Reference Range Interpretation Comments Unit ABO (test code = 6589366) A Pos UNIT NUMBER (test code = [id number] 934-0) Status (test code = 8960280) [place]_TIMEINCHART Blood Bank Product (test code PLATELETS = 2263) PRODUCT CODE (test code = Y8852X76 933-2) [facility] [id number] 23:55:00 Test Item Value Reference Range Interpretation Comments Unit ABO (test code = 1355981) A Pos UNIT NUMBER (test code = [id number] 934-0) Status (test code = 6535348) TX_TIMEINCHART Blood Bank Product (test code PLATELETS = 2263) PRODUCT CODE (test code = A1814Y00 933-2) [facility] [id number] 23:55:00 Test Item Value Reference Range Interpretation Comments Unit ABO (test code = 1747602) A Pos UNIT NUMBER (test code = [id number] 934-0) Status (test code = 6011848) TX_TIMEINCHART Blood Bank Product (test code PLATELETS = 2263) PRODUCT CODE (test code = F6959P98 933-2) [facility] [id number] 23:55:00 Test Item Value Reference Range Interpretation Comments Unit ABO (test code = 5220672) A Pos UNIT NUMBER (test code = [id number] 934-0) Status (test code = 7424777) TX_TIMEINCHART Blood Bank Product (test code PLATELETS = 2263) PRODUCT CODE (test code = Z0545O70 933-2) [facility] [id number] 23:55:00 Test Item Value Reference Range Interpretation Comments Unit ABO (test code = 1712877) A Pos UNIT NUMBER (test code = [id number] 934-0) Status (test code = 7509387) TX_TIMEINCHART Blood Bank Product (test code PLATELETS = 2263) PRODUCT CODE (test code = L6571C75 933-2) [facility] [id number] 23:55:00 Test Item Value Reference Range Interpretation Comments Unit ABO (test code = 9420784) A Pos UNIT NUMBER (test code = [id number] 934-0) Status (test code = 4164600) TX_TIMEINCHART Blood Bank Product (test code PLATELETS = 2263) PRODUCT CODE (test code = Y6873D49 933-2) [facility] [id number] 23:55:00 Test Item Value Reference Range Interpretation Comments Unit ABO (test code = 6067822) A Pos UNIT NUMBER (test code = [id number] 934-0) Status (test code = 1576371) [place]_TIMEINCHART Blood Bank Product (test code PLATELETS = 2263) PRODUCT CODE (test code = X9670P39 933-2) [facility] [id number] 23:55:00 Test Item Value Reference Range Interpretation Comments Unit ABO (test code = 5915961) A Pos UNIT NUMBER (test code = [id number] 934-0) Status (test code = 8100735) [place]_TIMEINCHART Blood Bank Product (test code PLATELETS = 2263) PRODUCT CODE (test code = N7902Y04 933-2) [facility] [id number] 23:55:00 Test Item Value Reference Range Interpretation Comments Unit ABO (test code = 9125638) A Pos UNIT NUMBER (test code = [id number] 934-0) Status (test code = 1470197) [place]_TIMEINCHART Blood Bank Product (test code PLATELETS = 2263) PRODUCT CODE (test code = Q9897L24 933-2) [facility] [id number] 23:55:00 Test Item Value Reference Range Interpretation Comments Unit ABO (test code = 7397310) A Pos UNIT NUMBER (test code = [id number] 934-0) Status (test code = 4245358) [place]_TIMEINCHART Blood Bank Product (test code PLATELETS = 2263) PRODUCT CODE (test code = J8126U92 933-2) [facility] [id number] 23:55:00 Test Item Value Reference Range Interpretation Comments Unit ABO (test code = 4181589) A Pos UNIT NUMBER (test code = [id number] 934-0) Status (test code = 4990811) [place]_TIMEINCHART Blood Bank Product (test code PLATELETS = 2263) PRODUCT CODE (test code = E1794L30 933-2) [facility] [id number] 23:55:00 Test Item Value Reference Range Interpretation Comments Unit ABO (test code = 4723239) A Pos UNIT NUMBER (test code = [id number] 934-0) Status (test code = 1712003) [place]_TIMEINCHART Blood Bank Product (test code PLATELETS = 2263) PRODUCT CODE (test code = M7428P08 933-2) [facility] [id number] 23:54:00 Test Item Value Reference Range Interpretation Comments CROSSMATCH (test code = COMPATIBLE 2264) Unit ABO (test code = O Pos 1827487) UNIT NUMBER (test code = [id number] 934-0) Status (test code = RETURNED FROM ISSUE 2906181) Blood Bank Product (test RED BLOOD CELLS code = 2263) PRODUCT CODE (test code = V2046L58 933-2) [facility] [id number] 23:54:00 Test Item Value Reference Range Interpretation Comments CROSSMATCH (test code = COMPATIBLE 2264) Unit ABO (test code = O Pos 1274101) UNIT NUMBER (test code = [id number] 934-0) Status (test code = RETURNED FROM ISSUE 1177852) Blood Bank Product (test RED BLOOD CELLS code = 2263) PRODUCT CODE (test code = L6777H78 933-2) [facility] [id number] 23:54:00 Test Item Value Reference Range Interpretation Comments CROSSMATCH (test code = COMPATIBLE 2264) Unit ABO (test code = O Pos 7114008) UNIT NUMBER (test code = [id number] 934-0) Status (test code = RETURNED FROM ISSUE 15100613) Blood Bank Product (test RED BLOOD CELLS code = 2263) PRODUCT CODE (test code = O2008K90 933-2) [facility] [id number] 23:54:00 Test Item Value Reference Range Interpretation Comments CROSSMATCH (test code = COMPATIBLE 2264) Unit ABO (test code = O Pos 5823184) UNIT NUMBER (test code = [id number] 934-0) Status (test code = RETURNED FROM ISSUE 15100613) Blood Bank Product (test RED BLOOD CELLS code = 2263) PRODUCT CODE (test code = S2683B18 933-2) [facility]2022-03-18 23:54:00 Test Item Value Reference Range Interpretation Comments CROSSMATCH (test code = COMPATIBLE 2264) Unit ABO (test code = O Pos 9858851) UNIT NUMBER (test code = [id number] 934-0) Status (test code = RETURNED FROM ISSUE 15100613) Blood Bank Product (test RED BLOOD CELLS code = 2263) PRODUCT CODE (test code = Y4296V91 933-2) [facility] [id number] 23:54:00 Test Item Value Reference Range Interpretation Comments CROSSMATCH (test code = COMPATIBLE 2264) Unit ABO (test code = O Pos 5039342) UNIT NUMBER (test code = [id number] 934-0) Status (test code = RETURNED FROM ISSUE 15100613) Blood Bank Product (test RED BLOOD CELLS code = 2263) PRODUCT CODE (test code = A3710K90 933-2) [facility] [id number] 23:54:00 Test Item Value Reference Range Interpretation Comments CROSSMATCH (test code = COMPATIBLE 2264) Unit ABO (test code = O Pos 8219459) UNIT NUMBER (test code = [id number] 934-0) Status (test code = RETURNED FROM ISSUE 15100613) Blood Bank Product (test RED BLOOD CELLS code = 2263) PRODUCT CODE (test code = C9140R50 933-2) [facility] [id number] 23:54:00 Test Item Value Reference Range Interpretation Comments CROSSMATCH (test code = COMPATIBLE 2264) Unit ABO (test code = O Pos 0446729) UNIT NUMBER (test code = [id number] 934-0) Status (test code = RETURNED FROM ISSUE 15100613) Blood Bank Product (test RED BLOOD CELLS code = 2263) PRODUCT CODE (test code = B2176S37 933-2) [facility] [id number] 23:54:00 Test Item Value Reference Range Interpretation Comments CROSSMATCH (test code = COMPATIBLE 2264) Unit ABO (test code = O Pos 3201089) UNIT NUMBER (test code = [id number] 934-0) Status (test code = RETURNED FROM ISSUE 15100613) Blood Bank Product (test RED BLOOD CELLS code = 2263) PRODUCT CODE (test code = C1272K92 933-2) [facility] [id number] 23:54:00 Test Item Value Reference Range Interpretation Comments CROSSMATCH (test code = COMPATIBLE 2264) Unit ABO (test code = O Pos 3860108) UNIT NUMBER (test code = [id number] 934-0) Status (test code = RETURNED FROM ISSUE 15100613) Blood Bank Product (test RED BLOOD CELLS code = 2263) PRODUCT CODE (test code = D6711N78 933-2) [facility] [id number] 23:54:00 Test Item Value Reference Range Interpretation Comments CROSSMATCH (test code = COMPATIBLE 2264) Unit ABO (test code = O Pos 5724374) UNIT NUMBER (test code = [id number] 934-0) Status (test code = RETURNED FROM ISSUE 15100613) Blood Bank Product (test RED BLOOD CELLS code = 2263) PRODUCT CODE (test code = [id number] 933-2) [facility] [id number] 23:54:00 Test Item Value Reference Range Interpretation Comments CROSSMATCH (test code = COMPATIBLE 2264) Unit ABO (test code = O Pos 4091351) UNIT NUMBER (test code = [id number] 934-0) Status (test code = RETURNED FROM ISSUE 15100613) Blood Bank Product (test RED BLOOD CELLS code = 2263) PRODUCT CODE (test code = [id number] 933-2) [facility] [id number] 23:54:00 Test Item Value Reference Range Interpretation Comments CROSSMATCH (test code = COMPATIBLE 2264) Unit ABO (test code = O Pos 8724282) UNIT NUMBER (test code = [id number] 934-0) Status (test code = RETURNED FROM ISSUE 15100613) Blood Bank Product (test RED BLOOD CELLS code = 2263) PRODUCT CODE (test code = V1686I47 933-2) [facility] [id number] 23:54:00 Test Item Value Reference Range Interpretation Comments CROSSMATCH (test code = COMPATIBLE 2264) Unit ABO (test code = O Pos 5146239) UNIT NUMBER (test code = [id number] 934-0) Status (test code = RETURNED FROM ISSUE 15100613) Blood Bank Product (test RED BLOOD CELLS code = 2263) PRODUCT CODE (test code = B7458D05 933-2) [facility] [id number] 23:54:00 Test Item Value Reference Range Interpretation Comments CROSSMATCH (test code = COMPATIBLE 2264) Unit ABO (test code = O Pos 3679431) UNIT NUMBER (test code = [id number] 934-0) Status (test code = RETURNED FROM ISSUE 15100613) Blood Bank Product (test RED BLOOD CELLS code = 2263) PRODUCT CODE (test code = M8917X64 933-2) [facility] [id number] 23:54:00 Test Item Value Reference Range Interpretation Comments CROSSMATCH (test code = COMPATIBLE 2264) Unit ABO (test code = O Pos 6030984) UNIT NUMBER (test code = [id number] 934-0) Status (test code = RETURNED FROM ISSUE 8578011) Blood Bank Product (test RED BLOOD CELLS code = 2263) PRODUCT CODE (test code = I1762Y36 933-2) [facility] [id number] 23:54:00 Test Item Value Reference Range Interpretation Comments CROSSMATCH (test code = COMPATIBLE 2264) Unit ABO (test code = O Pos 0624310) UNIT NUMBER (test code = [id number] 934-0) Status (test code = RETURNED FROM ISSUE 2481155) Blood Bank Product (test RED BLOOD CELLS code = 2263) PRODUCT CODE (test code = J0225O26 933-2) [facility] [id number] 22:04:29 Test Item Value Reference Range Interpretation [...] S NOT APPLICABLE FOR DIALYSIS PATIEN TS. Bird Raiser ID - [id number] 22:03:41 Test Item Value Reference Range Interpretation Comments PHOSPHORUS (BEAKER) (test code = 4.3 mg/dL 2.3-4.7 604) Bird Raiser ID - [id number] 22:03:40 Test Item Value Reference Range Interpretation Comments MAGNESIUM (BEAKER) (test code = 2.2 mg/dL 1.6-2.6 627) Bird Raiser ID - DBpH, uejvvdqu7052-13-24 21:40:14 Test Item Value Reference Range Interpretation Comments pH, Arterial (test code = 2744-1) 7.37 7.35-7.45 Lab Interpretation (test code = Normal 42413-8) [facility]2022-03-18 21:40:14 Test Item Value Reference Range Interpretation Comments pH, Arterial (test code = 2744-1) 7.37 7.35-7.45 Lab Interpretation (test code = Normal 17460-1) [facility]2022-03-18 21:40:14 Test Item Value Reference Range Interpretation Comments pH, Arterial (test code = 2744-1) 7.37 7.35-7.45 Lab Interpretation (test code = Normal 32677-0) [facility]2022-03-18 21:40:14 Test Item Value Reference Range Interpretation Comments pH, Arterial (test code = 2744-1) 7.37 7.35-7.45 Lab Interpretation (test code = Normal 23496-1) [facility]2022-03-18 21:40:14 Test Item Value Reference Range Interpretation Comments pH, Arterial (test code = 2744-1) 7.37 7.35-7.45 Lab Interpretation (test code = Normal 71028-7) [facility]2022-03-18 21:40:14 Test Item Value Reference Range Interpretation Comments pH, Arterial (test code = 2744-1) 7.37 7.35-7.45 Lab Interpretation (test code = Normal 49596-5) [facility]2022-03-18 21:40:14 Test Item Value Reference Range Interpretation Comments pH, Arterial (test code = 2744-1) 7.37 7.35-7.45 Lab Interpretation (test code = Normal 86857-5) [facility]2022-03-18 21:40:14 Test Item Value Reference Range Interpretation Comments pH, Arterial (test code = 2744-1) 7.37 7.35-7.45 Lab Interpretation (test code = Normal 21845-8) [facility] [id number] 21:40:14 Test Item Value Reference Range Interpretation Comments pH, Arterial (test code = 2744-1) 7.37 7.35-7.45 Lab Interpretation (test code = Normal 45064-3) [facility]2022-03-18 21:40:14 Test Item Value Reference Range Interpretation Comments pH, Arterial (test code = 2744-1) 7.37 7.35-7.45 Lab Interpretation (test code = Normal 83678-8) [facility]2022-03-18 21:40:14 Test Item Value Reference Range Interpretation Comments pH, Arterial (test code = 2744-1) 7.37 7.35-7.45 Lab Interpretation (test code = Normal 67125-9) [facility]2022-03-18 21:40:14 Test Item Value Reference Range Interpretation Comments pH, Arterial (test code = 2744-1) 7.37 7.35-7.45 Lab Interpretation (test code = Normal 73216-6) [facility]2022-03-18 21:40:14 Test Item Value Reference Range Interpretation Comments pH, Arterial (test code = 2744-1) 7.37 7.35-7.45 Lab Interpretation (test code = Normal 02610-6) [facility]2022-03-18 21:40:14 Test Item Value Reference Range Interpretation Comments pH, Arterial (test code = 2744-1) 7.37 7.35-7.45 Lab Interpretation (test code = Normal 44862-8) [facility]2022-03-18 21:40:14 Test Item Value Reference Range Interpretation Comments pH, Arterial (test code = 2744-1) 7.37 7.35-7.45 Lab Interpretation (test code = Normal 88001-5) [facility]2022-03-18 21:40:14 Test Item Value Reference Range Interpretation Comments pH, Arterial (test code = 2744-1) 7.37 7.35-7.45 Lab Interpretation (test code = Normal 27962-6) [facility]2022-03-18 21:40:14 Test Item Value Reference Range Interpretation Comments pH, Arterial (test code = 2744-1) 7.37 7.35-7.45 Lab Interpretation (test code = Normal 55672-0) [facility] [id number] 21:40:14 Test Item Value Reference Range Interpretation Comments PH ARTERIAL (BEAKER) (test code = 383) 7.37 7.35-7.45 POCT-GLUCOSE [id number] 18:07:04 Test Item Value Reference Range Interpretation Comments POC-GLUCOSE METER 208 mg/dL 70-110 H : TESTED A T [facility] 6720 (BEAKER) (test code = YUDY WHITE [place], 1538) 10675: Bird Raiser/Techni kelle ID = [id number] for Chilo Mccarty BLOOD GAS, [id number] 12:45:46 Test Item Value Reference Range Interpretation [...] (test code = 1819) 36.0 BLOOD GAS, [id number] 11:23:57 Test Item Value Reference Range Interpretation [...] FIO2 (BEAKER) (test code = 1819) 40.0 [id number] 09:37:11 Test Item Value Reference Range Interpretation Comments Scan Result (test code = See scanned report [id number]) BRANDI (test code = BRANDI) See scanned report [place] 285602-03-18 09:37:11 Test Item Value Reference Range Interpretation Comments Scan Result (test code = See scanned report [id number]) BRANDI (test code = BRANDI) See scanned report [place] 285602-03-18 09:37:11 Test Item Value Reference Range Interpretation Comments Scan Result (test code = See scanned report [id number]) BRANDI (test code = BRANDI) See scanned report [place] 285602-03-18 09:37:11 Test Item Value Reference Range Interpretation Comments Scan Result (test code = See scanned report 2030351) BRANDI (test code = BRANDI) See scanned report [place] 17477022-03-18 09:37:11 Test Item Value Reference Range Interpretation Comments Scan Result (test code = See scanned report 3435175) BRANDI (test code = BRANDI) See scanned report [place] 17477022-03-18 09:37:11 Test Item Value Reference Range Interpretation Comments Scan Result (test code = See scanned report [id number]) BRANDI (test code = BRANDI) See scanned report [place] 17477022-03-18 09:37:11 Test Item Value Reference Range Interpretation Comments Scan Result (test code = See scanned report 5718962) BRANDI (test code = BRANDI) See scanned report [place] 285602-03-18 09:37:11 Test Item Value Reference Range Interpretation Comments Scan Result (test code = See scanned report 1454348) BRANDI (test code = BRANDI) See scanned report [place] 285602-03-18 09:37:11 Test Item Value Reference Range Interpretation Comments Scan Result (test code = See scanned report 1254406) BRANDI (test code = BRANDI) See scanned report [place] 285602-03-18 09:37:11 Test Item Value Reference Range Interpretation Comments Scan Result (test code = See scanned report 4363375) BRANDI (test code = BRANDI) See scanned report [place] 17477022-03-18 09:37:11 Test Item Value Reference Range Interpretation Comments Scan Result (test code = See scanned report 1039088) BRANDI (test code = BRANDI) See scanned report [place] 17477022-03-18 09:37:11 Test Item Value Reference Range Interpretation Comments Scan Result (test code = See scanned report 8626882) BRANDI (test code = BRANDI) See scanned report [place] 19578-03-18 09:37:11 Test Item Value Reference Range Interpretation Comments Scan Result (test code = See scanned report 2709218) BRANDI (test code = BRANDI) See scanned report [place] 17477022-03-18 09:37:11 Test Item Value Reference Range Interpretation Comments Scan Result (test code = See scanned report [id number]) BRANDI (test code = BRANDI) See scanned report [place] 17477022-03-18 09:37:11 Test Item Value Reference Range Interpretation Comments Scan Result (test code = See scanned report [id number]) BRANDI (test code = BRANDI) See scanned report [place] 285602-03-18 09:37:11 Test Item Value Reference Range Interpretation Comments Scan Result (test code = See scanned report 0206552) BRANDI (test code = BRANDI) See scanned report [place] 17477022-03-18 09:37:11 Test Item Value Reference Range Interpretation Comments Scan Result (test code = See scanned report 0781377) BRANDI (test code = BRANDI) See scanned report [facility] [id number] 09:37:11 Test Item Value Reference Range Interpretation Comments SCAN RESULT (test code = See scanned report [id number]) See scanned reportPOCT-GLUCOSE [id number] 08:52:16 Test Item Value Reference Range Interpretation Comments POC-GLUCOSE METER 165 mg/dL 70-110 H : TESTED A T [facility] 6720 (BEAKER) (test code = YUDY WHITE MA, [facility]8) [address]809: Bird Raiser/Techni kelle ID = [id number] for Chilo Mccarty RAD, CHEST, 1 VIEW, NON [id number] 04:10:00Reason for exam:->post-opShould this be performed at the bedside?->Yes [facility] : 1955 Sex: FFINAL REPORT RAD, CHEST, 1 VIEW, NON DEPT INDICATION: post-op COMPARISON: Prior day's exam FINDINGS: Portable frontal view of the chest. IMPRESSION: Support Lines: Stable Lungs and pleura: Unchanged central venous congestion. No new consolidation or effusion. No pneumothorax. Heart and mediastinum: Stable contours. Additional findings: None. Signed: Andrew Cary [facility] Verified Date/Time: 06/19/2021 04:10:04 BASIC METABOLIC [id number] 03:27:20 Test Item Value Reference Range Interpretation [...] S NOT APPLICABLE FOR DIALYSIS PATIEN TS. Bird Raiser ID - RAKAN [id number] 03:26:39 Test Item Value Reference Range Interpretation Comments MAGNESIUM (BEAKER) (test code = 2.4 mg/dL 1.6-2.6 627) Bird Raiser ID - RAKAN [id number] 03:26:39 Test Item Value Reference Range Interpretation Comments PHOSPHORUS (BEAKER) (test code = 4.8 mg/dL 2.3-4.7 H 604) Bird Raiser ID - RAKAN [id number] 03:02:29 Test Item Value Reference Range Interpretation Comments PARTIAL THROMBOPLASTIN TIME 35.4 seconds 22.5-36.0 (BEAKER) (test code = 760) PROTHROMBIN TIME/[id number] 03:01:50 Test Item Value Reference Range Interpretation Comments PROTIME (BEAKER) 16.0 seconds 11.9-14.2 H (test code = 759) INR (BEAKER) (test 1.31 See_Comment [Automat ed message] code = 370) The system [employer] generated this result transmitted ref erence range: [...] 0-0 (test code = 413) OXYGEN SATURATION, [id number] 02:28:43 Test Item Value Reference Range Interpretation Comments O2 SATURATION (MEASURED) (BEAKER) 79.3 % (test code = 1455) BLOOD GAS, [id number] 02:25:53 Test Item Value Reference Range Interpretation [...] (BEAKER) (test code = 1819) 40.0 POCT-GLUCOSE [id number] 00:06:42 Test Item Value Reference Range Interpretation Comments POC-GLUCOSE METER 88 mg/dL 70-110 : TESTED A T [facility] 6720 (BEAKER) (test code = [facility], 1538) 27835: Bird Raiser/Techni kelle ID = [id number] for JUGU ILON (V), ERICK POCT-GLUCOSE [id number] 23:14:53 Test Item Value Reference Range Interpretation Comments POC-GLUCOSE METER 91 mg/dL 70-110 : TESTED A T [facility] 6720 (BEAKER) (test code = [facility], 1538) 31058: Bird Raiser/Techni kelle ID = [id number] for JUGU ILON (V), ERICK POCT-GLUCOSE [id number] 21:30:27 Test Item Value Reference Range Interpretation Comments POC-GLUCOSE METER 128 mg/dL 70-110 H : TESTED A T [facility] 6720 (BEAKER) (test code = [facility], 1538) 56405: Bird Raiser/Techni kelle ID = [id number] for WILLARD GUILON (V), ERICK POCT-GLUCOSE [id number] 19:05:18 Test Item Value Reference Range Interpretation Comments POC-GLUCOSE METER 165 mg/dL 70-110 H : TESTED A T [facility] 6720 (BEAKER) (test code = [facility], 1538) 45593: Bird Raiser/Techni kelle ID = [id number] for DEIDRE BURRELL, MARIBELSMI BASIC METABOLIC [id number] 18:47:16 Test Item Value Reference Range Interpretation [...] S NOT APPLICABLE FOR DIALYSIS PATIEN TS. Bird Raiser ID - HIEN [id number] 18:44:55 Test Item Value Reference Range Interpretation Comments MAGNESIUM (BEAKER) (test code = 2.5 mg/dL 1.6-2.6 627) Bird Raiser ID - HIEN [id number] 18:44:55 Test Item Value Reference Range Interpretation Comments PHOSPHORUS (BEAKER) (test code = 4.7 mg/dL 2.3-4.7 604) Bird Raiser ID - HIEN MBLOOD GAS, [id number] 18:43:01 Test Item Value Reference Range Interpretation [...] (test code = 1819) 60.0 OXYGEN SATURATION, [id number] 18:40:36 Test Item Value Reference Range Interpretation Comments O2 SATURATION (MEASURED) (BEAKER) 90.5 % (test code = 1455) Lactic Acid, [id number] 18:40:35 Test Item Value Reference Range Interpretation Comments Lactate, Art (test code = 2.1 mmol/L 0.5-2.2 2874) BRANDI (test code = BRANDI) Bird Raiser ID Bassam Dennis Lab Interpretation (test Normal code = 67634-1) [facility], [id number] 18:40:35 Test Item Value Reference Range Interpretation Comments Lactate, Art (test code = 2.1 mmol/L 0.5-2.2 2874) BRANDI (test code = BRANDI) Bird Raiser ID Bassam Dennis Lab Interpretation (test Normal code = 45543-6) [facility] Hospital[facility], [id number] 18:40:35 Test Item Value Reference Range Interpretation Comments Lactate, Art (test code = 2.1 mmol/L 0.5-2.2 2874) BRANDI (test code = BRANDI) Bird Raiser ID - HIEN M Lab Interpretation (test Normal code = 28312-5) [facility], [id number] 18:40:35 Test Item Value Reference Range Interpretation Comments Lactate, Art (test code = 2.1 mmol/L 0.5-2.2 2874) BRANDI (test code = BRANDI) Bird Raiser ID - HIEN M Lab Interpretation (test Normal code = 14727-0) [facility], [id number] 18:40:35 Test Item Value Reference Range Interpretation Comments Lactate, Art (test code = 2.1 mmol/L 0.5-2.2 2874) BRANDI (test code = BRANDI) Bird Raiser ID - HIEN M Lab Interpretation (test Normal code = 84534-7) [facility], [id number] 18:40:35 Test Item Value Reference Range Interpretation Comments Lactate, Art (test code = 2.1 mmol/L 0.5-2.2 2874) BRANDI (test code = BRANDI) Bird Raiser ID - HIEN M Lab Interpretation (test Normal code = 17623-7) [facility], [id number] 18:40:35 Test Item Value Reference Range Interpretation Comments Lactate, Art (test code = 2.1 mmol/L 0.5-2.2 2874) BRANDI (test code = BRANDI) Bird Raiser ID - HIEN M Lab Interpretation (test Normal code = 03293-7) [facility], [id number] 18:40:35 Test Item Value Reference Range Interpretation Comments Lactate, Art (test code = 2.1 mmol/L 0.5-2.2 2874) BRANDI (test code = BRANDI) Bird Raiser ID - HIEN M Lab Interpretation (test Normal code = 23291-3) [facility], [id number] 18:40:35 Test Item Value Reference Range Interpretation Comments Lactate, Art (test code = 2.1 mmol/L 0.5-2.2 2874) BRANDI (test code = BRANDI) Bird Raiser ID - HIEN M Lab Interpretation (test Normal code = 85835-4) [facility], [id number] 18:40:35 Test Item Value Reference Range Interpretation Comments Lactate, Art (test code = 2.1 mmol/L 0.5-2.2 2874) BRANDI (test code = BRANDI) Bird Raiser ID - HIEN Lab Interpretation (test Normal code = 49839-7) [facility], [id number] 18:40:35 Test Item Value Reference Range Interpretation Comments Lactate, Art (test code = 2.1 mmol/L 0.5-2.2 2874) BRANDI (test code = BRANDI) Bird Raiser ID - [facility] Lab Interpretation (test Normal code = 74045-6) [facility], [id number] 18:40:35 Test Item Value Reference Range Interpretation Comments Lactate, Art (test code = 2.1 mmol/L 0.5-2.2 2874) BRANDI (test code = BRANDI) Bird Raiser ID - HIEN Lab Interpretation (test Normal code = 97633-1) [facility], [id number] 18:40:35 Test Item Value Reference Range Interpretation Comments Lactate, Art (test code = 2.1 mmol/L 0.5-2.2 2874) BRANDI (test code = BRANDI) Bird Raiser ID - HIEN Lab Interpretation (test Normal code = 39723-7) [facility], [id number] 18:40:35 Test Item Value Reference Range Interpretation Comments Lactate, Art (test code = 2.1 mmol/L 0.5-2.2 2874) BRANDI (test code = BRANDI) Bird Raiser ID - HIEN Lab Interpretation (test Normal code = 17048-3) [facility], [id number] 18:40:35 Test Item Value Reference Range Interpretation Comments Lactate, Art (test code = 2.1 mmol/L 0.5-2.2 2874) BRANDI (test code = BRANDI) Bird Raiser ID - HIEN M Lab Interpretation (test Normal code = 06275-6) [facility], [id number] 18:40:35 Test Item Value Reference Range Interpretation Comments Lactate, Art (test code = 2.1 mmol/L 0.5-2.2 2874) BRANDI (test code = BRANDI) Bird Raiser ID - HIEN M Lab Interpretation (test Normal code = 48014-3) [facility], [id number] 18:40:35 Test Item Value Reference Range Interpretation Comments Lactate, Art (test code = 2.1 mmol/L 0.5-2.2 2874) BRANDI (test code = BRANDI) Bird Raiser ID - HIEN M Lab Interpretation (test Normal code = 29026-7) [facility] Hospital[facility]CTIC ACID, [id number] 18:40:35 Test Item Value Reference Range Interpretation Comments LACTATE BLOOD ARTERIAL (2) 2.1 mmol/L 0.5-2.2 (BEAKER) (test code = 2874) Bird Raiser ID - HIEN [id number] 18:38:33 Test Item Value Reference Range Interpretation Comments PARTIAL THROMBOPLASTIN TIME 37.2 seconds 22.5-36.0 H (BEAKER) (test code = 760) PROTHROMBIN TIME/[id number] 18:37:33 Test Item Value Reference Range Interpretation Comments PROTIME (BEAKER) 16.6 seconds 11.9-14.2 H (test code = 759) INR (BEAKER) (test 1.37 See_Comment [Automat ed message] code = 370) The system [employer] generated this result transmitted ref erence range: [...] 0-0 (test code = 413) HGB/HCT (H&H)-Stat [id number] 16:13:19 Test Item Value Reference Range Interpretation Comments Hemoglobin (test code = 10.6 See_Comment L [Au tomated message] 786-4) The system [employer] generated this result transmitted ref erence range: 12.0 - 1 5.0 GM/DL. The refe rence range was not u sed to interpret this result as normal/abnor mal. Hematocrit (test code = 31.0 % 36.0-45.0 L 4544-3) Lab Interpretation (test Abnormal code = 22517-7) [facility]Stat [id number] 16:13:19 Test Item Value Reference Range Interpretation Comments Hemoglobin (test code = 10.6 See_Comment L [Au tomated message] 786-4) The system [employer] generated this result transmitted ref erence range: 12.0 - 1 5.0 GM/DL. The refe rence range was not u sed to interpret this result as normal/abnor mal. Hematocrit (test code = 31.0 % 36.0-45.0 L 4544-3) Lab Interpretation (test Abnormal code = 71614-9) [facility] ([facility]H)-Stat [id number] 16:13:19 Test Item Value Reference Range Interpretation Comments Hemoglobin (test code = 10.6 See_Comment L [Au tomated message] 786-4) The system [employer] generated this result transmitted ref erence range: 12.0 - 1 5.0 GM/DL. The refe rence range was not u sed to interpret this result as normal/abnor mal. Hematocrit (test code = 31.0 % 36.0-45.0 L 4544-3) Lab Interpretation (test Abnormal code = 55292-9) [facility] ([facility]H)-Stat [id number] 16:13:19 Test Item Value Reference Range Interpretation Comments Hemoglobin (test code = 10.6 See_Comment L [Au tomated message] 786-4) The system [employer] generated this result transmitted ref erence range: 12.0 - 1 5.0 GM/DL. The refe rence range was not u sed to interpret this result as normal/abnor mal. Hematocrit (test code = 31.0 % 36.0-45.0 L 4544-3) Lab Interpretation (test Abnormal code = 03312-8) [facility])-Stat [id number] 16:13:19 Test Item Value Reference Range Interpretation Comments Hemoglobin (test code = 10.6 See_Comment L [Au tomated message] 786-4) The system [employer] generated this result transmitted ref erence range: 12.0 - 1 5.0 GM/DL. The refe rence range was not u sed to interpret this result as normal/abnor mal. Hematocrit (test code = 31.0 % 36.0-45.0 L 4544-3) Lab Interpretation (test Abnormal code = 15880-3) [facility]H)-Stat [id number] 16:13:19 Test Item Value Reference Range Interpretation Comments Hemoglobin (test code = 10.6 See_Comment L [Au tomated message] 786-4) The system [employer] generated this result transmitted ref erence range: 12.0 - 1 5.0 GM/DL. The refe rence range was not u sed to interpret this result as normal/abnor mal. Hematocrit (test code = 31.0 % 36.0-45.0 L 4544-3) Lab Interpretation (test Abnormal code = 49551-7) [facility] ([facility]H)-Stat [id number] 16:13:19 Test Item Value Reference Range Interpretation Comments Hemoglobin (test code = 10.6 See_Comment L [Au tomated message] 786-4) The system [employer] generated this result transmitted ref erence range: 12.0 - 1 5.0 GM/DL. The refe rence range was not u sed to interpret this result as normal/abnor mal. Hematocrit (test code = 31.0 % 36.0-45.0 L 4544-3) Lab Interpretation (test Abnormal code = 59397-1) [facility]Stat [id number] 16:13:19 Test Item Value Reference Range Interpretation Comments Hemoglobin (test code = 10.6 See_Comment L [Au tomated message] 786-4) The system [employer] generated this result transmitted ref erence range: 12.0 - 1 5.0 GM/DL. The refe rence range was not u sed to interpret this result as normal/abnor mal. Hematocrit (test code = 31.0 % 36.0-45.0 L 4544-3) Lab Interpretation (test Abnormal code = 30935-5) [facility] ([facility]H)-Stat [id number] 16:13:19 Test Item Value Reference Range Interpretation Comments Hemoglobin (test code = 10.6 See_Comment L [Au tomated message] 786-4) The system [employer] generated this result transmitted ref erence range: 12.0 - 1 5.0 GM/DL. The refe rence range was not u sed to interpret this result as normal/abnor mal. Hematocrit (test code = 31.0 % 36.0-45.0 L 4544-3) Lab Interpretation (test Abnormal code = 05912-7) [facility] [id number] 16:13:19 Test Item Value Reference Range Interpretation Comments Hemoglobin (test code = 10.6 See_Comment L [Au tomated message] 786-4) The system [employer] generated this result transmitted ref erence range: 12.0 - 1 5.0 GM/DL. The refe rence range was not u sed to interpret this result as normal/abnor mal. Hematocrit (test code = 31.0 % 36.0-45.0 L 4544-3) Lab Interpretation (test Abnormal code = 72445-5) [facility] [id number] 16:13:19 Test Item Value Reference Range Interpretation Comments Hemoglobin (test code = 10.6 See_Comment L [Au tomated message] 786-4) The system [employer] generated this result transmitted ref erence range: 12.0 - 1 5.0 GM/DL. The refe rence range was not u sed to interpret this result as normal/abnor mal. Hematocrit (test code = 31.0 % 36.0-45.0 L 4544-3) Lab Interpretation (test Abnormal code = 67195-1) [facility] [id number] 16:13:19 Test Item Value Reference Range Interpretation Comments Hemoglobin (test code = 10.6 See_Comment L [Au tomated message] 786-4) The system [employer] generated this result transmitted ref erence range: 12.0 - 1 5.0 GM/DL. The refe rence range was not u sed to interpret this result as normal/abnor mal. Hematocrit (test code = 31.0 % 36.0-45.0 L 4544-3) Lab Interpretation (test Abnormal code = 60083-0) [facility] [id number] 16:13:19 Test Item Value Reference Range Interpretation Comments Hemoglobin (test code = 10.6 See_Comment L [Au tomated message] 786-4) The system [employer] generated this result transmitted ref erence range: 12.0 - 1 5.0 GM/DL. The refe rence range was not u sed to interpret this result as normal/abnor mal. Hematocrit (test code = 31.0 % 36.0-45.0 L 4544-3) Lab Interpretation (test Abnormal code = 16636-4) [facility] [id number] 16:13:19 Test Item Value Reference Range Interpretation Comments Hemoglobin (test code = 10.6 See_Comment L [Au tomated message] 786-4) The system [employer] generated this result transmitted ref erence range: 12.0 - 1 5.0 GM/DL. The refe rence range was not u sed to interpret this result as normal/abnor mal. Hematocrit (test code = 31.0 % 36.0-45.0 L 4544-3) Lab Interpretation (test Abnormal code = 09622-8) [facility] [id number] 16:13:19 Test Item Value Reference Range Interpretation Comments Hemoglobin (test code = 10.6 See_Comment L [Au tomated message] 786-4) The system [employer] generated this result transmitted ref erence range: 12.0 - 1 5.0 GM/DL. The refe rence range was not u sed to interpret this result as normal/abnor mal. Hematocrit (test code = 31.0 % 36.0-45.0 L 4544-3) Lab Interpretation (test Abnormal code = 87166-4) [facility] [id number] 16:13:19 Test Item Value Reference Range Interpretation Comments Hemoglobin (test code = 10.6 See_Comment L [Au tomated message] 786-4) The system [employer] generated this result transmitted ref erence range: 12.0 - 1 5.0 GM/DL. The refe rence range was not u sed to interpret this result as normal/abnor mal. Hematocrit (test code = 31.0 % 36.0-45.0 L 4544-3) Lab Interpretation (test Abnormal code = 31291-0) [facility] [id number] 16:13:19 Test Item Value Reference Range Interpretation Comments Hemoglobin (test code = 10.6 See_Comment L [Au tomated message] 786-4) The system [employer] generated this result transmitted ref erence range: 12.0 - 1 5.0 GM/DL. The refe rence range was not u sed to interpret this result as normal/abnor mal. Hematocrit (test code = 31.0 % 36.0-45.0 L 4544-3) Lab Interpretation (test Abnormal code = 47233-2) [facility] [id number] 16:13:19 Test Item Value Reference Range Interpretation Comments HEMOGLOBIN (BEAKER) (test code = 10.6 GM/DL 12.0-15.0 L 410) HEMATOCRIT (BEAKER) (test code = 31.0 % 36.0-45.0 L 411) Glucose-Stat [id number] 16:13:18 Test Item Value Reference Range Interpretation Comments Glucose (test code = 2345-7) 205 mg/dL 70-110 H Lab Interpretation (test code = Abnormal 16663-2) [facility] [id number] 16:13:18 Test Item Value Reference Range Interpretation Comments Sodium (test code = 2951-2) 134 meq/L 136-145 L Lab Interpretation (test code = Abnormal 07432-0) [facility] [id number] 16:13:18 Test Item Value Reference Range Interpretation Comments Glucose (test code = 2345-7) 205 mg/dL 70-110 H Lab Interpretation (test code = Abnormal 97012-4) [facility] [id number] 16:13:18 Test Item Value Reference Range Interpretation Comments Sodium (test code = 2951-2) 134 meq/L 136-145 L Lab Interpretation (test code = Abnormal 36373-1) [facility] [id number] 16:13:18 Test Item Value Reference Range Interpretation Comments Glucose (test code = 2345-7) 205 mg/dL 70-110 H Lab Interpretation (test code = Abnormal 92506-3) [facility] [id number] 16:13:18 Test Item Value Reference Range Interpretation Comments Sodium (test code = 2951-2) 134 meq/L 136-145 L Lab Interpretation (test code = Abnormal 87373-9) [facility] [id number] 16:13:18 Test Item Value Reference Range Interpretation Comments Glucose (test code = 2345-7) 205 mg/dL 70-110 H Lab Interpretation (test code = Abnormal 31781-4) [facility] [id number] 16:13:18 Test Item Value Reference Range Interpretation Comments Sodium (test code = 2951-2) 134 meq/L 136-145 L Lab Interpretation (test code = Abnormal 17201-2) [facility] [id number] 16:13:18 Test Item Value Reference Range Interpretation Comments Glucose (test code = 2345-7) 205 mg/dL 70-110 H Lab Interpretation (test code = Abnormal 90847-0) [facility] [id number] 16:13:18 Test Item Value Reference Range Interpretation Comments Sodium (test code = 2951-2) 134 meq/L 136-145 L Lab Interpretation (test code = Abnormal 26034-2) [facility] [id number] 16:13:18 Test Item Value Reference Range Interpretation Comments Glucose (test code = 2345-7) 205 mg/dL 70-110 H Lab Interpretation (test code = Abnormal 31378-5) [facility] [id number] 16:13:18 Test Item Value Reference Range Interpretation Comments Sodium (test code = 2951-2) 134 meq/L 136-145 L Lab Interpretation (test code = Abnormal 14019-9) [facility] [id number] 16:13:18 Test Item Value Reference Range Interpretation Comments Glucose (test code = 2345-7) 205 mg/dL 70-110 H Lab Interpretation (test code = Abnormal 92466-4) [facility] [id number] 16:13:18 Test Item Value Reference Range Interpretation Comments Sodium (test code = 2951-2) 134 meq/L 136-145 L Lab Interpretation (test code = Abnormal 14991-9) [facility] [id number] 16:13:18 Test Item Value Reference Range Interpretation Comments Glucose (test code = 2345-7) 205 mg/dL 70-110 H Lab Interpretation (test code = Abnormal 33495-1) [facility] [id number] 16:13:18 Test Item Value Reference Range Interpretation Comments Sodium (test code = 2951-2) 134 meq/L 136-145 L Lab Interpretation (test code = Abnormal 14720-3) [facility] [id number] 16:13:18 Test Item Value Reference Range Interpretation Comments Glucose (test code = 2345-7) 205 mg/dL 70-110 H Lab Interpretation (test code = Abnormal 12552-4) [facility] [id number] 16:13:18 Test Item Value Reference Range Interpretation Comments Sodium (test code = 2951-2) 134 meq/L 136-145 L Lab Interpretation (test code = Abnormal 79661-6) [facility] [id number] 16:13:18 Test Item Value Reference Range Interpretation Comments Glucose (test code = 2345-7) 205 mg/dL 70-110 H Lab Interpretation (test code = Abnormal 30461-5) [facility] [id number] 16:13:18 Test Item Value Reference Range Interpretation Comments Sodium (test code = 2951-2) 134 meq/L 136-145 L Lab Interpretation (test code = Abnormal 72339-6) [facility] [id number] 16:13:18 Test Item Value Reference Range Interpretation Comments Glucose (test code = 2345-7) 205 mg/dL 70-110 H Lab Interpretation (test code = Abnormal 17443-3) [facility] [id number] 16:13:18 Test Item Value Reference Range Interpretation Comments Sodium (test code = 2951-2) 134 meq/L 136-145 L Lab Interpretation (test code = Abnormal 94359-6) [facility] [id number] 16:13:18 Test Item Value Reference Range Interpretation Comments Glucose (test code = 2345-7) 205 mg/dL 70-110 H Lab Interpretation (test code = Abnormal 32716-7) [facility] [id number] 16:13:18 Test Item Value Reference Range Interpretation Comments Sodium (test code = 2951-2) 134 meq/L 136-145 L Lab Interpretation (test code = Abnormal 64791-0) [facility] [id number] 16:13:18 Test Item Value Reference Range Interpretation Comments Glucose (test code = 2345-7) 205 mg/dL 70-110 H Lab Interpretation (test code = Abnormal 33188-3) [facility] [id number] 16:13:18 Test Item Value Reference Range Interpretation Comments Sodium (test code = 2951-2) 134 meq/L 136-145 L Lab Interpretation (test code = Abnormal 14141-5) [facility] [id number] 16:13:18 Test Item Value Reference Range Interpretation Comments Glucose (test code = 2345-7) 205 mg/dL 70-110 H Lab Interpretation (test code = Abnormal 59658-7) [facility] [id number] 16:13:18 Test Item Value Reference Range Interpretation Comments Sodium (test code = 2951-2) 134 meq/L 136-145 L Lab Interpretation (test code = Abnormal 38017-1) [facility] [id number] 16:13:18 Test Item Value Reference Range Interpretation Comments Glucose (test code = 2345-7) 205 mg/dL 70-110 H Lab Interpretation (test code = Abnormal 55955-0) [facility] [id number] 16:13:18 Test Item Value Reference Range Interpretation Comments Sodium (test code = 2951-2) 134 meq/L 136-145 L Lab Interpretation (test code = Abnormal 13124-0) [facility] [id number] 16:13:18 Test Item Value Reference Range Interpretation Comments Glucose (test code = 2345-7) 205 mg/dL 70-110 H Lab Interpretation (test code = Abnormal 15305-0) [facility] [id number] 16:13:18 Test Item Value Reference Range Interpretation Comments Sodium (test code = 2951-2) 134 meq/L 136-145 L Lab Interpretation (test code = Abnormal 76982-0) [facility] [id number] 16:13:18 Test Item Value Reference Range Interpretation Comments Glucose (test code = 2345-7) 205 mg/dL 70-110 H Lab Interpretation (test code = Abnormal 26125-9) [facility] [id number] 16:13:18 Test Item Value Reference Range Interpretation Comments Sodium (test code = 2951-2) 134 meq/L 136-145 L Lab Interpretation (test code = Abnormal 59875-0) [facility] [id number] 16:13:18 Test Item Value Reference Range Interpretation Comments SODIUM (BEAKER) (test code = 381) 134 meq/L 136-145 L GLUCOSE-STAT [id number] 16:13:18 Test Item Value Reference Range Interpretation Comments GLUCOSE RANDOM (BEAKER) (test code 205 mg/dL 70-110 H = 652) BLOOD GAS, [id number] 16:13:17 Test Item Value Reference Range Interpretation [...] (BEAKER) (test code = 1819) 60.0 Potassium-Stat [id number] 16:11:46 Test Item Value Reference Range Interpretation Comments Potassium (test code = 2823-3) 4.5 meq/L 3.6-5.5 Lab Interpretation (test code = Normal 86952-3) [facility] [id number] 16:11:46 Test Item Value Reference Range Interpretation Comments Potassium (test code = 2823-3) 4.5 meq/L 3.6-5.5 Lab Interpretation (test code = Normal 15521-6) [facility] [id number] 16:11:46 Test Item Value Reference Range Interpretation Comments Potassium (test code = 2823-3) 4.5 meq/L 3.6-5.5 Lab Interpretation (test code = Normal 99513-0) [facility] [id number] 16:11:46 Test Item Value Reference Range Interpretation Comments Potassium (test code = 2823-3) 4.5 meq/L 3.6-5.5 Lab Interpretation (test code = Normal 60730-3) [facility] [id number] 16:11:46 Test Item Value Reference Range Interpretation Comments Potassium (test code = 2823-3) 4.5 meq/L 3.6-5.5 Lab Interpretation (test code = Normal 51685-1) [facility] [id number] 16:11:46 Test Item Value Reference Range Interpretation Comments Potassium (test code = 2823-3) 4.5 meq/L 3.6-5.5 Lab Interpretation (test code = Normal 34564-1) [facility] [id number] 16:11:46 Test Item Value Reference Range Interpretation Comments Potassium (test code = 2823-3) 4.5 meq/L 3.6-5.5 Lab Interpretation (test code = Normal 85382-3) [facility] [id number] 16:11:46 Test Item Value Reference Range Interpretation Comments Potassium (test code = 2823-3) 4.5 meq/L 3.6-5.5 Lab Interpretation (test code = Normal 26165-1) [facility] [id number] 16:11:46 Test Item Value Reference Range Interpretation Comments Potassium (test code = 2823-3) 4.5 meq/L 3.6-5.5 Lab Interpretation (test code = Normal 54871-0) [facility] [id number] 16:11:46 Test Item Value Reference Range Interpretation Comments Potassium (test code = 2823-3) 4.5 meq/L 3.6-5.5 Lab Interpretation (test code = Normal 74857-7) [facility] [id number] 16:11:46 Test Item Value Reference Range Interpretation Comments Potassium (test code = 2823-3) 4.5 meq/L 3.6-5.5 Lab Interpretation (test code = Normal 74468-7) [facility] [id number] 16:11:46 Test Item Value Reference Range Interpretation Comments Potassium (test code = 2823-3) 4.5 meq/L 3.6-5.5 Lab Interpretation (test code = Normal 30452-1) [facility] [id number] 16:11:46 Test Item Value Reference Range Interpretation Comments Potassium (test code = 2823-3) 4.5 meq/L 3.6-5.5 Lab Interpretation (test code = Normal 23974-7) [facility] [id number] 16:11:46 Test Item Value Reference Range Interpretation Comments Potassium (test code = 2823-3) 4.5 meq/L 3.6-5.5 Lab Interpretation (test code = Normal 33087-8) [facility] [id number] 16:11:46 Test Item Value Reference Range Interpretation Comments Potassium (test code = 2823-3) 4.5 meq/L 3.6-5.5 Lab Interpretation (test code = Normal 63197-4) [facility] [id number] 16:11:46 Test Item Value Reference Range Interpretation Comments Potassium (test code = 2823-3) 4.5 meq/L 3.6-5.5 Lab Interpretation (test code = Normal 33429-2) [facility] [id number] 16:11:46 Test Item Value Reference Range Interpretation Comments Potassium (test code = 2823-3) 4.5 meq/L 3.6-5.5 Lab Interpretation (test code = Normal 06480-9) [facility] [id number] 16:11:46 Test Item Value Reference Range Interpretation Comments POTASSIUM (BEAKER) (test code = 4.5 meq/L 3.6-5.5 379) CALCIUM, [id number] 16:11:08 Test Item Value Reference Range Interpretation Comments CALCIUM IONIZED (BEAKER) (test 1.16 mmol/L 1.12-1.27 code = 698) PH, BLOOD (BEAKER) (test code = 7.44 1810) Manual Lqxfufgjditz1037-95-95 16:00:23 Test Item Value Reference Range Interpretation [...] = 3438) BRANDI (test code = BRANDI) Bird Raiser ID - Liza Lu comments: Slide comments: Lab Interpretation (test Abnormal code = 82234-4) [facility] Vvtczqpwimyy1284-86-26 16:00:23 Test Item Value Reference Range Interpretation [...] = 3438) BRANDI (test code = BRANDI) Bird Raiser ID - Liza Lu comments: Slide comments: Lab Interpretation (test Abnormal code = 69094-9) [facility] Nxithcstunaa9467-04-16 16:00:23 Test Item Value Reference Range Interpretation [...] = 3438) BRANDI (test code = BRANDI) Bird Raiser ID - Liza Lu comments: Slide comments: Lab Interpretation (test Abnormal code = 63148-1) [facility] Nuafporrvitu9768-54-00 16:00:23 Test Item Value Reference Range Interpretation [...] Poikilocytes (test code = 1+ few 966) Avery Cells (test code = 1+ few 474) Artifact (test code = Present 3432) Platelet Conc (test code Decreased = 3438) BRANDI (test code = BRANDI) Bird Raiser ID - Liza Lu comments: Slide comments: Lab Interpretation (test Abnormal code = 22588-6) [facility] Wndskcijdvtk5982-37-68 16:00:23 Test Item Value Reference Range Interpretation [...] = 3438) BRANDI (test code = BRANDI) Bird Raiser ID - Liza Lu comments: Slide comments: Lab Interpretation (test Abnormal code = 81225-8) [facility] Drjolcjbptqw0141-79-53 16:00:23 Test Item Value Reference Range Interpretation [...] = 3438) BRANDI (test code = BRANDI) Bird Raiser ID - Liza Lu comments: Slide comments: Lab Interpretation (test Abnormal code = 60600-1) [facility] Ncidfcvqhsip5710-40-62 16:00:23 Test Item Value Reference Range Interpretation [...] Poikilocytes (test code = 1+ few 966) Avery Cells (test code = 1+ few 474) Artifact (test code = Present 3432) Platelet Conc (test code Decreased = 3438) BRANDI (test code = BRANDI) Bird Raiser ID - Liza Lu comments: Slide comments: Lab Interpretation (test Abnormal code = 19310-1) [facility] Fljpuygubiuk1280-76-57 16:00:23 Test Item Value Reference Range Interpretation [...] Poikilocytes (test code = 1+ few 966) Avery Cells (test code = 1+ few 474) Artifact (test code = Present 3432) Platelet Conc (test code Decreased = 3438) BRANDI (test code = BRANDI) Bird Raiser ID - Liza Lu comments: Slide comments: Lab Interpretation (test Abnormal code = 36447-7) [facility] Kswdjnkunxaj9838-11-64 16:00:23 Test Item Value Reference Range Interpretation [...] = 3438) BRANDI (test code = BRANDI) Bird Raiser ID - Liza Lu comments: Slide comments: Lab Interpretation (test Abnormal code = 80342-1) [facility] Ovroczownkxh6659-03-82 16:00:23 Test Item Value Reference Range Interpretation [...] = 3438) BRANDI (test code = BRANDI) Bird Raiser ID - Liza Tabitha comments: Slide comments: Lab Interpretation (test Abnormal code = 21058-1) [facility] Dikwknkvjbjc6474-08-29 16:00:23 Test Item Value Reference Range Interpretation [...] = 3438) BRANDI (test code = BRANDI) Bird Raiser ID - Liza Lu comments: Slide comments: Lab Interpretation (test Abnormal code = 97297-9) [facility] Sromtfqgswqk8553-40-38 16:00:23 Test Item Value Reference Range Interpretation [...] = 3438) BRANDI (test code = BRANDI) Bird Raiser ID - Liza Lu comments: Slide comments: Lab Interpretation (test Abnormal code = 89375-2) [facility] Zrukmyhumsjs4840-82-93 16:00:23 Test Item Value Reference Range Interpretation [...] = 3438) BRANDI (test code = BRANDI) Bird Raiser ID - Liza Lu comments: Slide comments: Lab Interpretation (test Abnormal code = 03467-2) [facility] Zlrdbiyumdwb7945-90-97 16:00:23 Test Item Value Reference Range Interpretation [...] Poikilocytes (test code = 1+ few 966) Avery Cells (test code = 1+ few 474) Artifact (test code = Present 3432) Platelet Conc (test code Decreased = 3438) BRANDI (test code = BRANDI) Bird Raiser ID - Liza Lu comments: Slide comments: Lab Interpretation (test Abnormal code = 21171-4) [facility] Nkoujdgnrfvc5159-35-77 16:00:23 Test Item Value Reference Range Interpretation [...] Poikilocytes (test code = 1+ few 966) Avery Cells (test code = 1+ few 474) Artifact (test code = Present 3432) Platelet Conc (test code Decreased = 3438) BRANDI (test code = BRANDI) Bird Raiser ID - Liza Lu comments: Slide comments: Lab Interpretation (test Abnormal code = 20716-2) [facility] Domxdombcfwt1309-20-74 16:00:23 Test Item Value Reference Range Interpretation [...] = 3438) BRANDI (test code = BRANDI) Bird Raiser ID - Liza Lu comments: Slide comments: Lab Interpretation (test Abnormal code = 20790-9) [facility] Xcxuusesjwzy9146-85-89 16:00:23 Test Item Value Reference Range Interpretation [...] = 3438) BRANDI (test code = BRANDI) Bird Raiser ID - Liza Lu comments: Slide comments: Lab Interpretation (test Abnormal code = 12881-9) [facility](CELLAVISION MANUAL DIFF)2021-06-18 16:00:23 Test [...] CONCENTRATION Decreased (CELLAVISION)(BEAKER) (test code = 3438) Bird Raiser ID - Liza Tabitha comments: Slide comments:RAD, CHEST, 1 VIEW, NON [id number] 15:58:00Reason for exam:->Post-opShould this be performed at the bedside?->Yes [facility] : 1955 Sex: FFINAL REPORT CHEST AP PORTABLE COMPARISON STUDY: 06/10/2021 History provided: Postopevaluation ET tube in place with tip midway between clavicles and marlon. NG tip in the stomach. Right jugular [place] catheter with tip in the right main pulmonary artery. Chest tubes with no pneumothorax. Mild right basilar atelectasis with trace right pleural effusion. Lungs otherwise grossly clear and vascularity normal. Signed: Wero Alvarez MDReport Verified Date/Time: 06/18/2021 15:58:54 Reading Location: [facility] Diagnostic Imaging Reading Room - [facility] 1.310.12 C METABOLIC [id number] 15:57:50 Test Item Value Reference Range Interpretation [...] S NOT APPLICABLE FOR DIALYSIS PATIEN TS. Bird Raiser ID - HIEN UYpvxnzxuw-DLQU5721-14-17 15:57:19 Test Item Value Reference Range Interpretation Comments Potassium (test code = 2823-3) 4.8 meq/L 3.5-5.1 Lab Interpretation (test code = Normal 81474-2) [facility]CU[facility] 15:57:19 Test Item Value Reference Range Interpretation Comments Potassium (test code = 2823-3) 4.8 meq/L 3.5-5.1 Lab Interpretation (test code = Normal 06454-2) [facility]MINX2090-12-06 15:57:19 Test Item Value Reference Range Interpretation Comments Potassium (test code = 2823-3) 4.8 meq/L 3.5-5.1 Lab Interpretation (test code = Normal 78026-8) [facility] CenterOEYN4722-05-72 15:57:19 Test Item Value Reference Range Interpretation Comments Potassium (test code = 2823-3) 4.8 meq/L 3.5-5.1 Lab Interpretation (test code = Normal 73708-9) [facility] CenterIPOJ3399-74-49 15:57:19 Test Item Value Reference Range Interpretation Comments Potassium (test code = 2823-3) 4.8 meq/L 3.5-5.1 Lab Interpretation (test code = Normal 43870-9) [facility] CenterYEVO1428-68-26 15:57:19 Test Item Value Reference Range Interpretation Comments Potassium (test code = 2823-3) 4.8 meq/L 3.5-5.1 Lab Interpretation (test code = Normal 00109-4) [facility] CenterXAIV3801-37-08 15:57:19 Test Item Value Reference Range Interpretation Comments Potassium (test code = 2823-3) 4.8 meq/L 3.5-5.1 Lab Interpretation (test code = Normal 89094-5) [facility] CenterAHUJ9473-59-52 15:57:19 Test Item Value Reference Range Interpretation Comments Potassium (test code = 2823-3) 4.8 meq/L 3.5-5.1 Lab Interpretation (test code = Normal 24520-6) [facility] CenterREQG8161-27-33 15:57:19 Test Item Value Reference Range Interpretation Comments Potassium (test code = 2823-3) 4.8 meq/L 3.5-5.1 Lab Interpretation (test code = Normal 63982-7) [facility] CenterTUDD9428-62-35 15:57:19 Test Item Value Reference Range Interpretation Comments Potassium (test code = 2823-3) 4.8 meq/L 3.5-5.1 Lab Interpretation (test code = Normal 84286-3) [facility]57:19 Test Item Value Reference Range Interpretation Comments Potassium (test code = 2823-3) 4.8 meq/L 3.5-5.1 Lab Interpretation (test code = Normal 33026-9) [id number] 15:57:19 Test Item Value Reference Range Interpretation Comments Potassium (test code = 2823-3) 4.8 meq/L 3.5-5.1 Lab Interpretation (test code = Normal 32339-5) [facility]AO[facility] 15:57:19 Test Item Value Reference Range Interpretation Comments Potassium (test code = 2823-3) 4.8 meq/L 3.5-5.1 Lab Interpretation (test code = Normal 18149-6) [facility]SHA[facility]12[facility]80[facility] 15:57:19 Test Item Value Reference Range Interpretation Comments Potassium (test code = 2823-3) 4.8 meq/L 3.5-5.1 Lab Interpretation (test code = Normal 46595-2) [facility]LPZJ2995-49-79 15:57:19 Test Item Value Reference Range Interpretation Comments Potassium (test code = 2823-3) 4.8 meq/L 3.5-5.1 Lab Interpretation (test code = Normal 98844-1) [facility]YMJ8909-[facility] 15:57:19 Test Item Value Reference Range Interpretation Comments Potassium (test code = 2823-3) 4.8 meq/L 3.5-5.1 Lab Interpretation (test code = Normal 37814-6) [facility]WPTU6317-90-39 15:57:19 Test Item Value Reference Range Interpretation Comments Potassium (test code = 2823-3) 4.8 meq/L 3.5-5.1 Lab Interpretation (test code = Normal 45644-6) [facility] 15:57:19 Test Item Value Reference Range Interpretation Comments POTASSIUM (BEAKER) (test code = 4.8 meq/L 3.5-5.1 379) [id number] 15:57:19 Test Item Value Reference Range Interpretation Comments PHOSPHORUS (BEAKER) (test code = 4.9 mg/dL 2.3-4.7 H 604) Bird Raiser ID - HIEN ZDZMBYHOVO1078-12-59 15:57:18 Test Item Value Reference Range Interpretation Comments MAGNESIUM (BEAKER) (test code = 2.6 mg/dL 1.6-2.6 627) Bird Raiser ID - HIEN MPrepare ocdpni2716-91-78 15:44:00 Test Item Value Reference Range Interpretation Comments Unit ABO (test code = O Neg 2531121) UNIT NUMBER (test code = [id number] 934-0) Status (test code = RETURNED FROM ISSUE 6768111) Blood Bank Product (test FFP code = 2263) PRODUCT CODE (test code = N1697B73 933-2) [facility] eweclq7371-32-72 15:44:00 Test Item Value Reference Range Interpretation Comments Unit ABO (test code = O Neg 6941906) UNIT NUMBER (test code = [id number] 934-0) Status (test code = RETURNED FROM ISSUE 5133993) Blood Bank Product (test FFP code = 2263) PRODUCT CODE (test code = N4367K45 933-2) [facility] zwujte3773-04-40 15:44:00 Test Item Value Reference Range Interpretation Comments Unit ABO (test code = O Neg 5893589) UNIT NUMBER (test code = [id number] 934-0) Status (test code = RETURNED FROM ISSUE 5635410) Blood Bank Product (test FFP code = 2263) PRODUCT CODE (test code = Q5709M20 933-2) [facility] tzficp7757-79-00 15:44:00 Test Item Value Reference Range Interpretation Comments Unit ABO (test code = O Neg 4723160) UNIT NUMBER (test code = [id number] 934-0) Status (test code = RETURNED FROM ISSUE 6861652) Blood Bank Product (test FFP code = 2263) PRODUCT CODE (test code = L0128Q00 933-2) [facility] wsoxvj2539-39-82 15:44:00 Test Item Value Reference Range Interpretation Comments Unit ABO (test code = O Neg 1974084) UNIT NUMBER (test code = [id number] 934-0) Status (test code = RETURNED FROM ISSUE 4012798) Blood Bank Product (test FFP code = 2263) PRODUCT CODE (test code = R6212W36 933-2) [facility] lgdzjo7428-75-76 15:44:00 Test Item Value Reference Range Interpretation Comments Unit ABO (test code = O Neg 0639166) UNIT NUMBER (test code = [id number] 934-0) Status (test code = RETURNED FROM ISSUE 1259399) Blood Bank Product (test FFP code = 2263) PRODUCT CODE (test code = S1339O20 933-2) [facility] acndhp6053-46-03 15:44:00 Test Item Value Reference Range Interpretation Comments Unit ABO (test code = O Neg 1174806) UNIT NUMBER (test code = [id number] 934-0) Status (test code = RETURNED FROM ISSUE 0582427) Blood Bank Product (test FFP code = 2263) PRODUCT CODE (test code = R9786O27 933-2) [facility] [id number] 15:44:00 Test Item Value Reference Range Interpretation Comments Unit ABO (test code = O Neg 9156018) UNIT NUMBER (test code = [id number] 934-0) Status (test code = RETURNED FROM ISSUE 1189745) Blood Bank Product (test FFP code = 2263) PRODUCT CODE (test code = S3817R54 933-2) [facility] peakad5410-38-41 15:44:00 Test Item Value Reference Range Interpretation Comments Unit ABO (test code = O Neg 8156729) UNIT NUMBER (test code = [id number] 934-0) Status (test code = RETURNED FROM ISSUE 0560368) Blood Bank Product (test FFP code = 2263) PRODUCT CODE (test code = E3486S27 933-2) [facility] rhzrpr7043-08-34 15:44:00 Test Item Value Reference Range Interpretation Comments Unit ABO (test code = O Neg 3623053) UNIT NUMBER (test code = [id number] 934-0) Status (test code = RETURNED FROM ISSUE 15100613) Blood Bank Product (test FFP code = 2263) PRODUCT CODE (test code = N2993U92 933-2) [facility] vmdvac9237-56-78 15:44:00 Test Item Value Reference Range Interpretation Comments Unit ABO (test code = O Neg 7933485) UNIT NUMBER (test code = [id number] 934-0) Status (test code = RETURNED FROM ISSUE 15100613) Blood Bank Product (test FFP code = 2263) PRODUCT CODE (test code = V5801U31 933-2) [facility] ehzshw4366-89-87 15:44:00 Test Item Value Reference Range Interpretation Comments Unit ABO (test code = O Neg 9611784) UNIT NUMBER (test code = [id number] 934-0) Status (test code = RETURNED FROM ISSUE 15100613) Blood Bank Product (test FFP code = 2263) PRODUCT CODE (test code = J8948I86 933-2) [facility] izerds1948-55-56 15:44:00 Test Item Value Reference Range Interpretation Comments Unit ABO (test code = O Neg 4205832) UNIT NUMBER (test code = M055462824241 934-0) Status (test code = RETURNED FROM ISSUE 15100613) Blood Bank Product (test FFP code = 2263) PRODUCT CODE (test code = G7489F06 933-2) [facility] svwwyf3007-97-68 15:44:00 Test Item Value Reference Range Interpretation Comments Unit ABO (test code = O Neg 7563232) UNIT NUMBER (test code = [id number] 934-0) Status (test code = RETURNED FROM ISSUE 15100613) Blood Bank Product (test FFP code = 2263) PRODUCT CODE (test code = B5018Y93 933-2) [facility] rjwzev4743-76-59 15:44:00 Test Item Value Reference Range Interpretation Comments Unit ABO (test code = O Neg 3248627) UNIT NUMBER (test code = [id number] 934-0) Status (test code = RETURNED FROM ISSUE 1574163) Blood Bank Product (test FFP code = 2263) PRODUCT CODE (test code = F7282K90 933-2) [facility] danptw1745-81-35 15:44:00 Test Item Value Reference Range Interpretation Comments Unit ABO (test code = O Neg 3888915) UNIT NUMBER (test code = [id number] 934-0) Status (test code = RETURNED FROM ISSUE 4670472) Blood Bank Product (test FFP code = 2263) PRODUCT CODE (test code = V2265P56 933-2) [facility] wzqrtb8066-27-48 15:44:00 Test Item Value Reference Range Interpretation Comments Unit ABO (test code = O Neg 6476181) UNIT NUMBER (test code = [id number] 934-0) Status (test code = RETURNED FROM ISSUE 9275997) Blood Bank Product (test FFP code = 2263) PRODUCT CODE (test code = T5254J43 933-2) [facility] 15:32:33 Test Item Value Reference Range Interpretation Comments PARTIAL THROMBOPLASTIN TIME 37.6 seconds 22.5-36.0 H (BEAKER) (test code = 760) PROTHROMBIN TIME/[id number] 15:31:52 Test Item Value Reference Range Interpretation Comments PROTIME (BEAKER) 17.9 seconds 11.9-14.2 H (test code = 759) INR (BEAKER) (test 1.50 See_Comment [Automat ed message] code = 370) The system [employer] generated this result transmitted ref erence range: <=5.90. The reference range was not used to int erpret this result as normal/abnormal . RECOMMENDED COUMADIN/WARFARIN INR THERAPY RANGESSTANDARD DOSE: 2.0 - 3.0 Includes: PROPHYLAXIS for venous thrombosis, systemic embolization; TREATMENT for venous thrombosis and/or pulmonary embolus.HIGH RISK: Target INR is 2.5-3.5 for patients with mechanical heart valves.CBC with platelet count + automated [id number] 15:24:09 Test Item Value Reference Range Interpretation Comments WBC (test code = 6690-2) 16.2 See_Comment H [A utomated message] The system [employer] generated this result transmitted ref erence range: 3.5 - 10 .5 K/L. The refe rence range was not u sed to interpret this result as normal/abnor mal. RBC (test code = 789-8) 3.33 See_Comment L [Au tomated message] The system [employer] generated this result transmitted ref erence range: 3.93 - 5 .22 M/L. The refe rence range was not u sed to interpret this result as normal/abnor mal. MCHC (test code = 786-4) 31.8 See_Comment L [A utomated message] The system [employer] generated this result transmitted ref erence range: [...] L [Aut omated message] 777-3) The system [employer] generated this result transmitted ref erence range: 150 - 45 0 K/CU MM. The referen ce range was not u sed to interpret this result as normal/abnor mal. MPV (test code = 10.3 fL 9.4-12.3 04543-9) nRBC (test code = 413) 0 See_Comment [Aut omated message] The system [employer] generated this result transmitted ref erence range: 0 - 0 /1 00 WBC. The refere nce range was not u sed to interpret this result as normal/abnor mal. Lab Interpretation (test Abnormal code = 11218-1) [facility] with platelet count + automated [id number] 15:24:09 Test Item Value Reference Range Interpretation Comments WBC (test code = 6690-2) 16.2 See_Comment H [A utomated message] The system [employer] generated this result transmitted ref erence range: 3.5 - 10 .5 K/L. The refe rence range was not u sed to interpret this result as normal/abnor mal. RBC (test code = 789-8) 3.33 See_Comment L [Au tomated message] The system [employer] generated this result transmitted ref erence range: 3.93 - 5 .22 M/L. The refe rence range was not u sed to interpret this result as normal/abnor mal. MCHC (test code = 786-4) 31.8 See_Comment L [A utomated message] The system [employer] generated this result transmitted ref erence range: [...] L [Aut omated message] 777-3) The system [employer] generated this result transmitted ref erence range: 150 - 45 0 K/CU MM. The referen ce range was not u sed to interpret this result as normal/abnor mal. MPV (test code = 10.3 fL 9.4-12.3 97540-0) nRBC (test code = 413) 0 See_Comment [Aut omated message] The system [employer] generated this result transmitted ref erence range: 0 - 0 /1 00 WBC. The refere nce range was not u sed to interpret this result as normal/abnor mal. Lab Interpretation (test Abnormal code = 97028-2) [facility] W/PLT COUNT & AUTO [id number] 15:24:09 Test Item Value Reference Range Interpretation [...] (BEAKER) (test code = 413) Hemoglobin and ckbbrhgyks2478-83-11 15:23:11 Test Item Value Reference Range Interpretation Comments Hemoglobin (test code = 10.0 See_Comment L [Au tomated message] 786-4) The system [employer] generated this result transmitted ref erence range: 11.2 - 1 5.7 GM/DL. The refe rence range was not u sed to interpret this result as normal/abnor mal. Hematocrit (test code = 31.4 % 34.1-44.9 L 4544-3) Lab Interpretation (test Abnormal code = 64309-0) [facility] [id number] 15:23:11 Test Item Value Reference Range Interpretation Comments HEMOGLOBIN (BEAKER) (test code = 10.0 GM/DL 11.2-15.7 L 410) HEMATOCRIT (BEAKER) (test code = 31.4 % 34.1-44.9 L 411) BLOOD GAS, [id number] 15:19:54 Test Item Value Reference Range Interpretation [...] = 1819) 75.0 HGB/HCT (H&H) - STAT [id number] 15:19:53 Test Item Value Reference Range Interpretation Comments HEMOGLOBIN (BEAKER) (test code = 10.6 GM/DL 12.0-15.0 L 410) HEMATOCRIT (BEAKER) (test code = 31.0 % 36.0-45.0 L 411) GLUCOSE-STAT [id number] 15:19:46 Test Item Value Reference Range Interpretation Comments GLUCOSE RANDOM (BEAKER) (test code 200 mg/dL 70-110 H = 652) OXYGEN SATURATION, [id number] 15:18:32 Test Item Value Reference Range Interpretation Comments O2 SATURATION (MEASURED) (BEAKER) 83.4 % (test code = 1455) POTASSIUM-STAT [id number] 15:18:10 Test Item Value Reference Range Interpretation Comments POTASSIUM (BEAKER) (test code = 4.5 meq/L 3.6-5.5 379) SODIUM NA-STAT [id number] 15:18:09 Test Item Value Reference Range Interpretation Comments SODIUM (BEAKER) (test code = 381) 136 meq/L 136-145 CALCIUM, [id number] 15:18:08 Test Item Value Reference Range Interpretation Comments CALCIUM IONIZED (BEAKER) (test 1.14 mmol/L 1.12-1.27 code = 698) PH, BLOOD (BEAKER) (test code = 7.39 1810) POC ACTIVATED CLOTTING [id number] 14:20:47 Test Item Value Reference Range Interpretation Comments Activated Clotting Time 130 sec : 74 -137 seconds, (test code = 441) Baseline: TESTED AT [address], [address]: Bird Raiser/Techni kelle ID = [id number] for Me ndoza, [place] [facility] ACTIVATED CLOTTING [id number] 14:20:47 Test Item Value Reference Range Interpretation Comments Activated Clotting Time 130 sec : 74 -137 seconds, (test code = 441) Baseline: TESTED AT [address], [address]: Bird Raiser/Techni kelle ID = [id number] for Me ndoza, [place] [facility] ACTIVATED CLOTTING [id number] 14:20:47 Test Item Value Reference Range Interpretation Comments Activated Clotting Time 130 sec : 74 -137 seconds, (test code = 441) Baseline: TESTED AT [address], [address]: Bird Raiser/Techni kelle ID = [id number] for Me ndoza, [place] [facility] ACTIVATED CLOTTING [id number] 14:20:47 Test Item Value Reference Range Interpretation Comments Activated Clotting Time 130 sec : 74 -137 seconds, (test code = 441) Baseline: TESTED AT [address], [address]: Bird Raiser/Techni kelle ID = [id number] for Me ndoza, [place] [facility] ACTIVATED CLOTTING [id number] 14:20:47 Test Item Value Reference Range Interpretation Comments Activated Clotting Time 130 sec : 74 -137 seconds, (test code = 441) Baseline: TESTED AT [address], [address]: Bird Raiser/Techni kelle ID = [id number] for Me ndoza, [place] [facility] ACTIVATED CLOTTING [id number] 14:20:47 Test Item Value Reference Range Interpretation Comments Activated Clotting Time 130 sec : 74 -137 seconds, (test code = 441) Baseline: TESTED AT [address], [address]: Bird Raiser/Techni kelle ID = [id number] for Me ndoza, [place] [facility] ACTIVATED CLOTTING [id number] 14:20:47 Test Item Value Reference Range Interpretation Comments Activated Clotting Time 130 sec : 74 -137 seconds, (test code = 441) Baseline: TESTED AT [address], [address]: Bird Raiser/Techni kelle ID = [id number] for Me ndoza, [place] [facility] ACTIVATED CLOTTING [id number] 14:20:47 Test Item Value Reference Range Interpretation Comments Activated Clotting Time 130 sec : 74 -137 seconds, (test code = 3184-9) Baselin e: TESTED AT [address], [address]: Bird Raiser/Techni kelle ID = [id number] for Me ndoza, [place] [facility] ACTIVATED CLOTTING [id number] 14:20:47 Test Item Value Reference Range Interpretation Comments Activated Clotting Time 130 sec : 74 -137 seconds, (test code = 3184-9) Baselin e: TESTED AT [address], [address]: Bird Raiser/Techni kelle ID = [id number] for Me ndoza, [place] [facility] ACTIVATED CLOTTING [id number] 14:20:47 Test Item Value Reference Range Interpretation Comments Activated Clotting Time 130 sec : 74 -137 seconds, (test code = 441) Baseline: TESTED AT [address], [address]: Bird Raiser/Techni kelle ID = [id number] for Me ndoza, [place] [facility] ACTIVATED CLOTTING [id number] 14:20:47 Test Item Value Reference Range Interpretation Comments Activated Clotting Time 130 sec : 74 -137 seconds, (test code = 441) Baseline: TESTED AT [address], [address]: Bird Raiser/Techni kelle ID = [id number] for Me ndoza, [place] [facility] ACTIVATED CLOTTING [id number] 14:20:47 Test Item Value Reference Range Interpretation Comments Activated Clotting Time 130 sec : 74 -137 seconds, (test code = 3184-9) Baselin e: TESTED AT [address], [address]: Bird Raiser/Techni kelle ID = [id number] for Me ndoza, [facility] ACTIVATED CLOTTING [id number] 14:20:47 Test Item Value Reference Range Interpretation Comments Activated Clotting Time 130 sec : 74 -137 seconds, (test code = 441) Baseline: TESTED AT [address], [address]: Bird Raiser/Techni kelle ID = [id number] for Me ndoza, [place] [facility] ACTIVATED CLOTTING [id number] 14:20:47 Test Item Value Reference Range Interpretation Comments Activated Clotting Time 130 sec : 74 -137 seconds, (test code = 441) Baseline: TESTED AT [address], [address]: Bird Raiser/Techni kelle ID = [id number] for Me ndoza, [place] [facility] ACTIVATED CLOTTING [id number] 14:20:47 Test Item Value Reference Range Interpretation Comments Activated Clotting Time 130 sec : 74 -137 seconds, (test code = 441) Baseline: TESTED AT [address], [address]: Bird Raiser/Techni kelle ID = [id number] for Me ndoza, [place] [facility] ACTIVATED CLOTTING [id number] 14:20:47 Test Item Value Reference Range Interpretation Comments Activated Clotting Time 130 sec : 74 -137 seconds, (test code = 441) Baseline: TESTED AT [address], [address]: Bird Raiser/Techni kelle ID = [id number] for Me ndoza, [place] [facility] ACTIVATED CLOTTING [id number] 14:20:47 Test Item Value Reference Range Interpretation Comments Activated Clotting Time 130 sec : 74 -137 seconds, (test code = 441) Baseline: TESTED AT [address], [address]: Bird Raiser/Techni kelle ID = [id number] for Me ndoza, [place] [facility][id number] 14:20:47 Test Item Value Reference Range Interpretation Comments ACTIVATED CLOTTING TIME 130 sec : 74 -137 seconds, (BEAKER) (test code = Baseli ne: TESTED AT [facility]) [address], [address]: Bird Raiser/Techni kelle ID = [id number] for Me ndoza, [place] ENOJ-[id number] 14:20:46 Test Item Value Reference Range Interpretation Comments ACTIVATED CLOTTING TIME 577 sec : 74 -137 seconds, (BEAKER) (test code = Baseli ne: TESTED AT 441) [address], [facility] 30: Bird Raiser/Techni kelle ID = [id number] for Rocky Danielle ARWM-[id number] 14:20:45 Test Item Value Reference Range Interpretation Comments ACTIVATED CLOTTING TIME 743 sec : 74 -137 seconds, (BEAKER) (test code = Baseli ne: TESTED AT 441) [address], [facility] 30: Bird Raiser/Techni kelle ID = [id number] for Me sanchezoza, [place] IUNQ-[id number] 14:20:45 Test Item Value Reference Range Interpretation Comments ACTIVATED CLOTTING TIME 618 sec : 74 -137 seconds, (BEAKER) (test code = Baseli ne: TESTED AT 441) [address], [facility] 30: Bird Raiser/Techni kelle ID = [id number] for Me sanchezozcata, [place] DQTW-[id number] 14:20:44 Test Item Value Reference Range Interpretation Comments ACTIVATED CLOTTING TIME 547 sec : 74 -137 seconds, (BEAKER) (test code = Baseli ne: TESTED AT 441) [address], [facility] 30: Bird Raiser/Techni kelle ID = [id number] for Me sanchezozcata, [place] VKGW-[id number] 14:20:12 Test Item Value Reference Range Interpretation Comments ACTIVATED CLOTTING TIME 809 sec : 74 -137 seconds, (BEAKER) (test code = Baseli ne: TESTED AT 441) [address], [facility] 30: Bird Raiser/Techni kelle ID = [id number] for Me sanchezozRocky ivy [id number] 13:49:05 Test Item Value Reference Range Interpretation Comments PARTIAL THROMBOPLASTIN TIME 38.3 seconds 22.5-36.0 H (BEAKER) (test code = 760) Hqvmgavxwk6146-27-14 13:48:43 Test Item Value Reference Range Interpretation Comments Fibrinogen (test code = 3255-7) 246 mg/dl 225-434 Lab Interpretation (test code = Normal 21324-7) [id number] 13:48:43 Test Item Value Reference Range Interpretation Comments Fibrinogen (test code = 3255-7) 246 mg/dl 225-434 Lab Interpretation (test code = Normal 46439-4) [facility]2022-03-17 13:48:43 Test Item Value Reference Range Interpretation Comments Fibrinogen (test code = 3255-7) 246 mg/dl 225-434 Lab Interpretation (test code = Normal 66927-8) [facility]2022-03-17 13:48:43 Test Item Value Reference Range Interpretation Comments Fibrinogen (test code = 3255-7) 246 mg/dl 225-434 Lab Interpretation (test code = Normal 60861-8) [facility]2022-03-17 13:48:43 Test Item Value Reference Range Interpretation Comments Fibrinogen (test code = 3255-7) 246 mg/dl 225-434 Lab Interpretation (test code = Normal 70061-7) [facility]2022-03-17 13:48:43 Test Item Value Reference Range Interpretation Comments Fibrinogen (test code = 3255-7) 246 mg/dl 225-434 Lab Interpretation (test code = Normal 37564-8) [facility]2022-03-17 13:48:43 Test Item Value Reference Range Interpretation Comments Fibrinogen (test code = 3255-7) 246 mg/dl 225-434 Lab Interpretation (test code = Normal 41920-1) [facility]2022-03-17 13:48:43 Test Item Value Reference Range Interpretation Comments Fibrinogen (test code = 3255-7) 246 mg/dl 225-434 Lab Interpretation (test code = Normal 53288-4) [facility]2022-03-17 13:48:43 Test Item Value Reference Range Interpretation Comments Fibrinogen (test code = 3255-7) 246 mg/dl 225-434 Lab Interpretation (test code = Normal 02142-7) [place] 144802-03-17 13:48:43 Test Item Value Reference Range Interpretation Comments Fibrinogen (test code = 3255-7) 246 mg/dl 225-434 Lab Interpretation (test code = Normal 28327-8) [facility] 13:48:43 Test Item Value Reference Range Interpretation Comments Fibrinogen (test code = 3255-7) 246 mg/dl 225-434 Lab Interpretation (test code = Normal 07592-5) [facility]2022-03-17 13:48:43 Test Item Value Reference Range Interpretation Comments Fibrinogen (test code = 3255-7) 246 mg/dl 225-434 Lab Interpretation (test code = Normal 53119-4) [facility] 13:48:43 Test Item Value Reference Range Interpretation Comments Fibrinogen (test code = 3255-7) 246 mg/dl 225-434 Lab Interpretation (test code = Normal 27767-9) [facility]2022-03-17 13:48:43 Test Item Value Reference Range Interpretation Comments Fibrinogen (test code = 3255-7) 246 mg/dl 225-434 Lab Interpretation (test code = Normal 63399-5) [facility]2022-03-17 13:48:43 Test Item Value Reference Range Interpretation Comments Fibrinogen (test code = 3255-7) 246 mg/dl 225-434 Lab Interpretation (test code = Normal 77727-7) [facility] 13:48:43 Test Item Value Reference Range Interpretation Comments Fibrinogen (test code = 3255-7) 246 mg/dl 225-434 Lab Interpretation (test code = Normal 43000-0) [facility] 13:48:43 Test Item Value Reference Range Interpretation Comments Fibrinogen (test code = 3255-7) 246 mg/dl 225-434 Lab Interpretation (test code = Normal 64591-5) [facility]2022-03-17 13:48:43 Test Item Value Reference Range Interpretation Comments FIBRINOGEN LEVEL (BEAKER) (test 246 mg/dl 225-434 code = 658) PROTHROMBIN TIME/[id number] 13:48:05 Test Item Value Reference Range Interpretation Comments PROTIME (BEAKER) 19.5 seconds 11.9-14.2 H (test code = 759) INR (BEAKER) (test 1.67 See_Comment [Automat ed message] code = 370) The system [employer] generated this result transmitted ref erence range: <=5.90. The reference range was not used to int erpret this result as normal/abnormal . RECOMMENDED COUMADIN/WARFARIN INR THERAPY RANGESSTANDARD DOSE: 2.0 - 3.0 Includes: PROPHYLAXIS for venous thrombosis, systemic embolization; TREATMENT for venous thrombosis and/or pulmonary embolus.HIGH RISK: Target INR is 2.5-3.5 for patients with mechanical heart valves.Platelet [id number] 13:39:36 Test Item Value Reference Range Interpretation Comments Platelets (test code 133 See_Comment L [Autom ated = 777-3) message] The system which generated this result transmit levi reference range : 150 - 450 K/CU MM. The reference range was not u sed to interpret th is result as normal/abnormal . BRANDI (test code = BRANDI) Bird Raiser ID - 6000 Lab Interpretation Abnormal (test code = 72178-4) [facility] [id number] 13:39:36 Test Item Value Reference Range Interpretation Comments Platelets (test code 133 See_Comment L [Autom ated = 777-3) message] The system which generated this result transmit levi reference range : 150 - 450 K/CU MM. The reference range was not u sed to interpret th is result as normal/abnormal . BRANDI (test code = BRANDI) Bird Raiser ID - 6000 Lab Interpretation Abnormal (test code = 31890-0) [facility] [id number] 13:39:36 Test Item Value Reference Range Interpretation Comments Platelets (test code 133 See_Comment L [Autom ated = 777-3) message] The system which generated this result transmit levi reference range : 150 - 450 K/CU MM. The reference range was not u sed to interpret th is result as normal/abnormal . BRANDI (test code = BRANDI) Bird Raiser ID - 6000 Lab Interpretation Abnormal (test code = 27518-1) [facility] [id number] 13:39:36 Test Item Value Reference Range Interpretation Comments Platelets (test code 133 See_Comment L [Autom ated = 777-3) message] The system which generated this result transmit levi reference range : 150 - 450 K/CU MM. The reference range was not u sed to interpret th is result as normal/abnormal . BRANDI (test code = BRANDI) Bird Raiser ID - 6000 Lab Interpretation Abnormal (test code = 97921-5) [facility] [id number] 13:39:36 Test Item Value Reference Range Interpretation Comments Platelets (test code 133 See_Comment L [Autom ated = 777-3) message] The system which generated this result transmit levi reference range : 150 - 450 K/CU MM. The reference range was not u sed to interpret th is result as normal/abnormal . BRANDI (test code = BRANDI) Bird Raiser ID - 6000 Lab Interpretation Abnormal (test code = 40907-7) [facility] [id number] 13:39:36 Test Item Value Reference Range Interpretation Comments Platelets (test code 133 See_Comment L [Autom ated = 777-3) message] The system which generated this result transmit levi reference range : 150 - 450 K/CU MM. The reference range was not u sed to interpret th is result as normal/abnormal . BRANDI (test code = BRANDI) Bird Raiser ID - 6000 Lab Interpretation Abnormal (test code = 74577-1) [facility] [id number] 13:39:36 Test Item Value Reference Range Interpretation Comments Platelets (test code 133 See_Comment L [Autom ated = 777-3) message] The system which generated this result transmit levi reference range : 150 - 450 K/CU MM. The reference range was not u sed to interpret th is result as normal/abnormal . BRANDI (test code = BRANDI) Bird Raiser ID - 6000 Lab Interpretation Abnormal (test code = 62131-9) [facility] [id number] 13:39:36 Test Item Value Reference Range Interpretation Comments Platelets (test code 133 See_Comment L [Autom ated = 777-3) message] The system which generated this result transmit levi reference range : 150 - 450 K/CU MM. The reference range was not u sed to interpret th is result as normal/abnormal . BRANDI (test code = BRANDI) Bird Raiser ID - 6000 Lab Interpretation Abnormal (test code = 06688-1) [facility] [id number] 13:39:36 Test Item Value Reference Range Interpretation Comments Platelets (test code 133 See_Comment L [Autom ated = 777-3) message] The system which generated this result transmit levi reference range : 150 - 450 K/CU MM. The reference range was not u sed to interpret th is result as normal/abnormal . BRANDI (test code = BRANDI) Bird Raiser ID - 6000 Lab Interpretation Abnormal (test code = 31338-8) [facility] [id number] 13:39:36 Test Item Value Reference Range Interpretation Comments Platelets (test code 133 See_Comment L [Autom ated = 777-3) message] The system which generated this result transmit levi reference range : 150 - 450 K/CU MM. The reference range was not u sed to interpret th is result as normal/abnormal . BRANDI (test code = BRANDI) Bird Raiser ID - 6000 Lab Interpretation Abnormal (test code = 81808-9) [facility] [id number] 13:39:36 Test Item Value Reference Range Interpretation Comments Platelets (test code 133 See_Comment L [Autom ated = 777-3) message] The system which generated this result transmit levi reference range : 150 - 450 K/CU MM. The reference range was not u sed to interpret th is result as normal/abnormal . BRANDI (test code = BRANDI) Bird Raiser ID - 6000 Lab Interpretation Abnormal (test code = 23436-5) [facility] [id number] 13:39:36 Test Item Value Reference Range Interpretation Comments Platelets (test code 133 See_Comment L [Autom ated = 777-3) message] The system which generated this result transmit levi reference range : 150 - 450 K/CU MM. The reference range was not u sed to interpret th is result as normal/abnormal . BRANDI (test code = BRANDI) Bird Raiser ID - 6000 Lab Interpretation Abnormal (test code = 71824-7) [facility] [id number] 13:39:36 Test Item Value Reference Range Interpretation Comments Platelets (test code 133 See_Comment L [Autom ated = 777-3) message] The system which generated this result transmit levi reference range : 150 - 450 K/CU MM. The reference range was not u sed to interpret th is result as normal/abnormal . BRANDI (test code = BRANDI) Bird Raiser ID - 6000 Lab Interpretation Abnormal (test code = 76373-3) [facility] [id number] 13:39:36 Test Item Value Reference Range Interpretation Comments Platelets (test code 133 See_Comment L [Autom ated = 777-3) message] The system which generated this result transmit levi reference range : 150 - 450 K/CU MM. The reference range was not u sed to interpret th is result as normal/abnormal . BRANDI (test code = BRANDI) Bird Raiser ID - 6000 Lab Interpretation Abnormal (test code = 06980-8) [facility] [id number] 13:39:36 Test Item Value Reference Range Interpretation Comments Platelets (test code 133 See_Comment L [Autom ated = 777-3) message] The system which generated this result transmit levi reference range : 150 - 450 K/CU MM. The reference range was not u sed to interpret th is result as normal/abnormal . BRANDI (test code = BRANDI) Bird Raiser ID - 6000 Lab Interpretation Abnormal (test code = 01021-4) [facility] [id number] 13:39:36 Test Item Value Reference Range Interpretation Comments Platelets (test code 133 See_Comment L [Autom ated = 777-3) message] The system which generated this result transmit levi reference range : 150 - 450 K/CU MM. The reference range was not u sed to interpret th is result as normal/abnormal . BRANDI (test code = BRANDI) Bird Raiser ID - 6000 Lab Interpretation Abnormal (test code = 31139-5) [facility] [id number] 13:39:36 Test Item Value Reference Range Interpretation Comments Platelets (test code 133 See_Comment L [Autom ated = 777-3) message] The system which generated this result transmit levi reference range : 150 - 450 K/CU MM. The reference range was not u sed to interpret th is result as normal/abnormal . BRANDI (test code = BRANDI) Bird Raiser ID - 6000 Lab Interpretation Abnormal (test code = 31190-6) [facility] [id number] 13:39:36 Test Item Value Reference Range Interpretation Comments PLATELET COUNT (BEAKER) (test 133 K/CU MM 150-450 L code = 756) Bird Raiser ID - 6000HGB/HCT (H&H) - STAT [id number] 13:26:47 Test Item Value Reference Range Interpretation Comments HEMOGLOBIN (BEAKER) (test code = 7.4 GM/DL 12.0-15.0 L 410) HEMATOCRIT (BEAKER) (test code = 22.0 % 36.0-45.0 L 411) GLUCOSE-STAT [id number] 13:26:46 Test Item Value Reference Range Interpretation Comments GLUCOSE RANDOM (BEAKER) (test code 199 mg/dL 70-110 H = 652) SODIUM NA-STAT [id number] 13:26:46 Test Item Value Reference Range Interpretation Comments SODIUM (BEAKER) (test code = 381) 134 meq/L 136-145 L CALCIUM, [id number] 13:26:40 Test Item Value Reference Range Interpretation Comments CALCIUM IONIZED (BEAKER) (test 1.03 mmol/L 1.12-1.27 L code = 698) PH, BLOOD (BEAKER) (test code = 7.33 1810) BLOOD GAS, [id number] 13:26:34 Test Item Value Reference Range Interpretation [...] (BEAKER) (test code = 1819) 100.0 POTASSIUM-STAT [id number] 13:24:59 Test Item Value Reference Range Interpretation Comments POTASSIUM (BEAKER) (test code = 4.5 meq/L 3.6-5.5 379) PLATELET [id number] 13:18:08 Test Item Value Reference Range Interpretation Comments PLATELET COUNT (BEAKER) (test code 53 K/CU MM 150-450 L = 756) Bird Raiser ID - 6000Operator ID - 6000Operator ID - [id number] 12:53:55 Test Item Value Reference Range Interpretation Comments PARTIAL THROMBOPLASTIN TIME > seconds 22.5-36.0 HH (BEAKER) (test code = 760) [id number] 12:36:04 Test Item Value Reference Range Interpretation Comments FIBRINOGEN LEVEL (BEAKER) (test 289 mg/dl 225-434 code = 658) PROTHROMBIN TIME/[id number] 12:35:28 Test Item Value Reference Range Interpretation Comments PROTIME (BEAKER) 25.4 seconds 11.9-14.2 H (test code = 759) INR (BEAKER) (test 2.35 See_Comment [Automat ed message] code = 370) The system [employer] generated this result transmitted ref erence range: <=5.90. The reference range was not used to int erpret this result as normal/abnormal . RECOMMENDED COUMADIN/WARFARIN INR THERAPY RANGESSTANDARD DOSE: 2.0 - 3.0 Includes: PROPHYLAXIS for venous thrombosis, systemic embolization; TREATMENT for venous thrombosis and/or pulmonary embolus.HIGH RISK: Target INR is 2.5-3.5 for patients with mechanical heart valves.HGB/HCT (H&H) - STAT [id number] 12:28:06 Test Item Value Reference Range Interpretation Comments HEMOGLOBIN (BEAKER) (test code = 9.3 GM/DL 12.0-15.0 L 410) HEMATOCRIT (BEAKER) (test code = 27.0 % 36.0-45.0 L 411) SODIUM NA-STAT [id number] 12:28:05 Test Item Value Reference Range Interpretation Comments SODIUM (BEAKER) (test code = 381) 133 meq/L 136-145 L GLUCOSE-STAT [id number] 12:28:05 Test Item Value Reference Range Interpretation Comments GLUCOSE RANDOM (BEAKER) (test code 189 mg/dL 70-110 H = 652) BLOOD GAS, [id number] 12:28:04 Test Item Value Reference Range Interpretation [...] (BEAKER) (test code = 1819) 75.0 POTASSIUM-STAT [id number] 12:27:48 Test Item Value Reference Range Interpretation Comments POTASSIUM (BEAKER) (test code = 5.5 meq/L 3.6-5.5 379) BLOOD GAS, [id number] 11:48:59 Test Item Value Reference Range Interpretation [...] (BEAKER) (test code = 1819) 70.0 GLUCOSE-STAT [id number] 11:47:10 Test Item Value Reference Range Interpretation Comments GLUCOSE RANDOM (BEAKER) (test code 186 mg/dL 70-110 H = 652) HGB/HCT (H&H) - STAT [id number] 11:47:10 Test Item Value Reference Range Interpretation Comments HEMOGLOBIN (BEAKER) (test code = 8.9 GM/DL 12.0-15.0 L 410) HEMATOCRIT (BEAKER) (test code = 26.0 % 36.0-45.0 L 411) SODIUM NA-STAT [id number] 11:47:09 Test Item Value Reference Range Interpretation Comments SODIUM (BEAKER) (test code = 381) 133 meq/L 136-145 L POTASSIUM-STAT [id number] 11:46:29 Test Item Value Reference Range Interpretation Comments POTASSIUM (BEAKER) (test code = 5.3 meq/L 3.6-5.5 379) HGB/HCT (H&H) - STAT [id number] 11:17:46 Test Item Value Reference Range Interpretation Comments HEMOGLOBIN (BEAKER) (test code = 9.6 GM/DL 12.0-15.0 L 410) HEMATOCRIT (BEAKER) (test code = 28.0 % 36.0-45.0 L 411) SODIUM NA-STAT [id number] 11:17:45 Test Item Value Reference Range Interpretation Comments SODIUM (BEAKER) (test code = 381) 133 meq/L 136-145 L BLOOD GAS, [id number] 11:17:39 Test Item Value Reference Range Interpretation [...] (BEAKER) (test code = 1819) 70.0 GLUCOSE-STAT [id number] 11:17:39 Test Item Value Reference Range Interpretation Comments GLUCOSE RANDOM (BEAKER) (test code 171 mg/dL 70-110 H = 652) POTASSIUM-STAT [id number] 11:17:36 Test Item Value Reference Range Interpretation Comments POTASSIUM (BEAKER) (test code = 5.1 meq/L 3.6-5.5 379) HGB/HCT (H&H) - STAT [id number] 10:50:26 Test Item Value Reference Range Interpretation Comments HEMOGLOBIN (BEAKER) (test code = 8.4 GM/DL 12.0-15.0 L 410) HEMATOCRIT (BEAKER) (test code = 25.0 % 36.0-45.0 L 411) SODIUM NA-STAT [id number] 10:50:25 Test Item Value Reference Range Interpretation Comments SODIUM (BEAKER) (test code = 381) 133 meq/L 136-145 L GLUCOSE-STAT [id number] 10:50:25 Test Item Value Reference Range Interpretation Comments GLUCOSE RANDOM (BEAKER) (test code 134 mg/dL 70-110 H = 652) BLOOD GAS, [id number] 10:50:24 Test Item Value Reference Range Interpretation [...] (BEAKER) (test code = 1819) 100.0 POTASSIUM-STAT [id number] 10:49:45 Test Item Value Reference Range Interpretation Comments POTASSIUM (BEAKER) (test code = 3.8 meq/L 3.6-5.5 379) Hemoglobin [id number] 09:30:26 Test Item Value Reference Range Interpretation [...] ADM Lab Interpretation Abnormal (test code = 81057-3) [facility] [id number] 09:30:26 Test Item Value Reference Range Interpretation [...] ADM Lab Interpretation Abnormal (test code = 00071-6) [facility] [id number] 09:30:26 Test Item Value Reference Range Interpretation [...] ADM Lab Interpretation Abnormal (test code = 30749-3) [facility] [id number] 09:30:26 Test Item Value Reference Range Interpretation [...] ADM Lab Interpretation Abnormal (test code = 25246-9) [facility] [id number] 09:30:26 Test Item Value Reference Range Interpretation [...] ADM Lab Interpretation Abnormal (test code = 42811-0) [facility] [id number] 09:30:26 Test Item Value Reference Range Interpretation [...] ADM Lab Interpretation Abnormal (test code = 46717-9) [facility] [id number] 09:30:26 Test Item Value Reference Range Interpretation [...] ADM Lab Interpretation Abnormal (test code = 67187-0) [facility] [id number] 09:30:26 Test Item Value Reference Range Interpretation [...] ADM Lab Interpretation Abnormal (test code = 43644-7) [facility] [id number] 09:30:26 Test Item Value Reference Range Interpretation [...] ADM Lab Interpretation Abnormal (test code = 23624-6) [facility] [id number] 09:30:26 Test Item Value Reference Range Interpretation [...] ADM Lab Interpretation Abnormal (test code = 56349-8) [facility] [id number] 09:30:26 Test Item Value Reference Range Interpretation [...] ADM Lab Interpretation Abnormal (test code = 03153-5) [facility] [id number] 09:30:26 Test Item Value Reference Range Interpretation [...] ADM Lab Interpretation Abnormal (test code = 91966-4) [facility] [id number] 09:30:26 Test Item Value Reference Range Interpretation [...] ADM Lab Interpretation Abnormal (test code = 71033-3) [facility] [id number] 09:30:26 Test Item Value Reference Range Interpretation [...] ADM Lab Interpretation Abnormal (test code = 25569-1) [facility] [id number] 09:30:26 Test Item Value Reference Range Interpretation [...] ADM Lab Interpretation Abnormal (test code = 16807-7) [facility] [id number] 09:30:26 Test Item Value Reference Range Interpretation [...] ADM Lab Interpretation Abnormal (test code = 93684-4) [facility] [id number] 09:30:26 Test Item Value Reference Range Interpretation [...] ADM Lab Interpretation Abnormal (test code = 43572-8) [facility] [id number] 09:30:26 Test Item Value Reference Range Interpretation [...] 5.7- 6.4% indicates increased risk for diabetes (prediabetes)."Bird Raiser ID - ADM HGB/HCT (H&H) - STAT [id number] 09:13:03 Test Item Value Reference Range Interpretation Comments HEMOGLOBIN (BEAKER) (test code = 9.0 GM/DL 12.0-15.0 L 410) HEMATOCRIT (BEAKER) (test code = 26.0 % 36.0-45.0 L 411) SODIUM NA-STAT [id number] 09:13:02 Test Item Value Reference Range Interpretation Comments SODIUM (BEAKER) (test code = 381) 134 meq/L 136-145 L GLUCOSE-STAT [id number] 09:13:02 Test Item Value Reference Range Interpretation Comments GLUCOSE RANDOM (BEAKER) (test code 112 mg/dL 70-110 H = 652) BLOOD GAS, [id number] 09:13:01 Test Item Value Reference Range Interpretation [...] (BEAKER) (test code = 1819) 100.0 CALCIUM, [id number] 09:13:00 Test Item Value Reference Range Interpretation Comments CALCIUM IONIZED (BEAKER) (test 1.09 mmol/L 1.12-1.27 L code = 698) PH, BLOOD (BEAKER) (test code = 7.46 1810) POTASSIUM-STAT [id number] 09:12:15 Test Item Value Reference Range Interpretation Comments POTASSIUM (BEAKER) (test code = 3.7 meq/L 3.6-5.5 379) BASIC METABOLIC [id number] 07:11:03 Test Item Value Reference Range Interpretation [...] S NOT APPLICABLE FOR DIALYSIS PATIEN TS. Bird Raiser ID - HIEN [id number] 06:29:42 Test Item Value Reference Range Interpretation Comments PHOSPHORUS (BEAKER) (test code = 4.7 mg/dL 2.3-4.7 604) Bird Raiser ID - HIEN [id number] 06:29:41 Test Item Value Reference Range Interpretation Comments MAGNESIUM (BEAKER) (test code = 2.0 mg/dL 1.6-2.6 627) Bird Raiser ID - HIEN [facility] W/PLT COUNT & AUTO [id number] 06:04:09 Test Item Value Reference Range Interpretation [...] code = 2801) RAD, ABDOMEN/KUB, 1 VIEW [id number] 02:55:00Reason for exam:->abdominal painMENDOCINO [facility] : 1955 [...] no acute bony abnormality. Signed: Braxton Quintero Verified Date/Time: 06/18/2021 02:55:15 POCT-GLUCOSE [id number] 21:39:12 Test Item Value Reference Range Interpretation Comments POC-GLUCOSE METER 135 mg/dL 70-110 H : TESTED A T [facility] 6720 (BEAKER) (test code = [place], 1538) [address]: Bird Raiser/Techni kelle ID = [id number] for Eliezer Jerome HEMOGLOBIN AND [id number] 21:31:20 Test Item Value Reference Range Interpretation Comments HEMOGLOBIN (BEAKER) (test code = 6.9 GM/DL 11.2-15.7 L 410) HEMATOCRIT (BEAKER) (test code = 21.8 % 34.1-44.9 L 411) Bird Raiser ID - 6000Operator ID - 6000CT, [id number] 18:33:00Unlisted Reason for Exam - Click Yes and Enter Reason Below->NoIs this for enterography?->NoPlease specify:->Renal Stone Protocolalso look for spleen if there is any infarct causing left flankpainWill this procedure require oral contrast?->NoHERRICK CAMPUSName: JAK MERRILL : 1955 Sex: FFINAL [...] ultrasound for further evaluation. Signed: Kb Gregorio Verified Date/Time: 06/17/2021 18:33:28 Reading Location: [address] Transitional Reading Room Comprehensive metabolic [id number] 16:18:22 Test Item Value Reference Range Interpretation Comments Protein, Total (test 7.0 See_Comment [Autom ated code = 2885-2) message] The system which generated this result transmit levi reference range : 6.0 - 8.3 gm/dL . The reference range was not u sed to interpret th is result as normal/abnormal . Albumin (test code = 2.7 g/dL 3.5-5.0 L 02943-2) Alkaline Phosphatase 99 U/L 40-150 (test code [...] Calcium (test code = 8.4 mg/dL 8.4-10.2 21297-1) AST (test code = 17 U/L 5-34 1920-8) ALT (test code = 10 U/L 6-55 1742-6) EGFR (test code = 11 mL/min/1.[place] [address]-0) NOT ACCURATE CREATININE CLEARANCE IN PREDICTING GLOMERULAR FILTRATION RATE . ESTIMATED GFR I S NOT APPLICABLE FOR DIALYSIS PATIEN TS. BRANDI (test code = BRANDI) Bird Raiser ID - BS Lab Interpretation Abnormal (test code = 10379-3) [facility] [id number] 16:18:22 Test Item Value Reference Range Interpretation Comments Protein, Total (test 7.0 See_Comment [Autom ated code = 2885-2) message] The system which generated this result transmit levi reference range : 6.0 - 8.3 gm/dL . The reference range was not u sed to interpret th is result as normal/abnormal . Albumin (test code = 2.7 g/dL 3.5-5.0 L 34769-1) Alkaline Phosphatase 99 U/L 40-150 (test code [...] Calcium (test code = 8.4 mg/dL 8.4-10.2 82329-9) AST (test code = 17 U/L 5-34 1920-8) ALT (test code = 10 U/L 6-55 1742-6) EGFR (test code = 11 mL/min/1.[place] [address]-7) NOT ACCURATE CREATININE CLEARANCE IN PREDICTING GLOMERULAR FILTRATION RATE . ESTIMATED GFR I S NOT APPLICABLE FOR DIALYSIS PATIEN TS. PAZ (test code = BRANDI) Bird Raiser ID - BS Lab Interpretation Abnormal (test code = 60559-8) [facility] [id number] 16:18:22 Test Item Value Reference Range Interpretation Comments Protein, Total (test 7.0 See_Comment [Autom ated code = 2885-2) message] The system which generated this result transmit levi reference range : 6.0 - 8.3 gm/dL . The reference range was not u sed to interpret th is result as normal/abnormal . Albumin (test code = 2.7 g/dL 3.5-5.0 L 34917-4) Alkaline Phosphatase 99 U/L 40-150 (test code [...] Calcium (test code = 8.4 mg/dL 8.4-10.2 61029-6) AST (test code = 17 U/L 5-34 1920-8) ALT (test code = 10 U/L 6-55 1742-6) EGFR (test code = 11 mL/min/1.73 [place] [address]-3) NOT ACCURATE CREATININE CLEARANCE IN PREDICTING GLOMERULAR FILTRATION RATE . ESTIMATED GFR I S NOT APPLICABLE FOR DIALYSIS PATIEN TS. BRANDI (test code = BRANDI) Bird Raiser ID - BS Lab Interpretation Abnormal (test code = 77800-6) [facility] [id number] 16:18:22 Test Item Value Reference Range Interpretation Comments Protein, Total (test 7.0 See_Comment [Autom ated code = 2885-2) message] The system which generated this result transmit levi reference range : 6.0 - 8.3 gm/dL . The reference range was not u sed to interpret th is result as normal/abnormal . Albumin (test code = 2.7 g/dL 3.5-5.0 L 13490-7) Alkaline Phosphatase 99 U/L 40-150 (test code [...] Calcium (test code = 8.4 mg/dL 8.4-10.2 74765-2) AST (test code = 17 U/L 5-34 1920-8) ALT (test code = 10 U/L 6-55 1742-6) EGFR (test code = 11 mL/min/1.73 [place] [address]-6) NOT ACCURATE CREATININE CLEARANCE IN PREDICTING GLOMERULAR FILTRATION RATE . ESTIMATED GFR I S NOT APPLICABLE FOR DIALYSIS PATIEN TS. BRANDI (test code = BRANDI) Bird Raiser ID - BS Lab Interpretation Abnormal (test code = 23708-0) [facility] [id number] 16:18:22 Test Item Value Reference Range Interpretation Comments Protein, Total (test 7.0 See_Comment [Autom ated code = 2885-2) message] The system which generated this result transmit levi reference range : 6.0 - 8.3 gm/dL . The reference range was not u sed to interpret th is result as normal/abnormal . Albumin (test code = 2.7 g/dL 3.5-5.0 L 39551-9) Alkaline Phosphatase 99 U/L 40-150 (test code [...] Calcium (test code = 8.4 mg/dL 8.4-10.2 33188-6) AST (test code = 17 U/L 34 1920-8) ALT (test code = 10 U/L 655 1742-6) EGFR (test code = 11 mL/min/1.[place] [address]-1) NOT ACCURATE CREATININE CLEARANCE IN PREDICTING GLOMERULAR FILTRATION RATE . ESTIMATED GFR I S NOT APPLICABLE FOR DIALYSIS PATIEN BRANDI (test code = BRANDI) Bird Raiser ID - BS Lab Interpretation Abnormal (test code = 23733-3) [facility] [id number] 16:18:22 Test Item Value Reference Range Interpretation Comments Protein, Total (test 7.0 See_Comment [Autom ated code = 2885-2) message] The system which generated this result transmit levi reference range : 6.0 - 8.3 gm/dL . The reference range was not u sed to interpret th is result as normal/abnormal . Albumin (test code = 2.7 g/dL 3.5-5.0 L 97780-5) Alkaline Phosphatase 99 U/L 40-150 (test code [...] Calcium (test code = 8.4 mg/dL 8.4-10.2 14679-0) AST (test code = 17 U/L 0-8) ALT (test code = 10 U/L 2-6) EGFR (test code = 11 mL/min/1.[place] [address]-2) NOT ACCURATE CREATININE CLEARANCE IN PREDICTING GLOMERULAR FILTRATION RATE . ESTIMATED GFR I S NOT APPLICABLE FOR DIALYSIS PATIEN BRANDI (test code = BRANDI) Bird Raiser ID - BS Lab Interpretation Abnormal (test code = 75910-5) [facility] [id number] 16:18:22 Test Item Value Reference Range Interpretation Comments Protein, Total (test 7.0 See_Comment [Autom ated code = 2885-2) message] The system which generated this result transmit levi reference range : 6.0 - 8.3 gm/dL . The reference range was not u sed to interpret th is result as normal/abnormal . Albumin (test code = 2.7 g/dL 3.5-5.0 L 12520-8) Alkaline Phosphatase 99 U/L 40-150 (test code [...] Calcium (test code = 8.4 mg/dL 8.4-10.2 88756-8) AST (test code = 17 U/L 1919-8) ALT (test code = 10 U/L 2-6) EGFR (test code = 11 mL/min/1.[place] [address]-7) NOT ACCURATE CREATININE CLEARANCE IN PREDICTING GLOMERULAR FILTRATION RATE . ESTIMATED GFR I S NOT APPLICABLE FOR DIALYSIS PATIEN TS. BRANDI (test code = BRANDI) Bird Raiser ID - BS Lab Interpretation Abnormal (test code = 24760-0) [facility] [id number] 16:18:22 Test Item Value Reference Range Interpretation Comments Protein, Total (test 7.0 See_Comment [Autom ated code = 2885-2) message] The system which generated this result transmit levi reference range : 6.0 - 8.3 gm/dL . The reference range was not u sed to interpret th is result as normal/abnormal . Albumin (test code = 2.7 g/dL 3.5-5.0 L 04133-8) Alkaline Phosphatase 99 U/L 40-150 (test code [...] Calcium (test code = 8.4 mg/dL 8.4-10.2 86171-3) AST (test code = 17 U/L 5-34 1920-8) ALT (test code = 10 U/L 6-55 1742-6) EGFR (test code = 11 mL/min/1.[place] [address]-9) NOT ACCURATE CREATININE CLEARANCE IN PREDICTING GLOMERULAR FILTRATION RATE . ESTIMATED GFR I S NOT APPLICABLE FOR DIALYSIS PATIEN TS. BRANDI (test code = BRANDI) Bird Raiser ID - BS Lab Interpretation Abnormal (test code = 58192-7) [facility] [id number] 16:18:22 Test Item Value Reference Range Interpretation Comments Protein, Total (test 7.0 See_Comment [Autom ated code = 2885-2) message] The system which generated this result transmit levi reference range : 6.0 - 8.3 gm/dL . The reference range was not u sed to interpret th is result as normal/abnormal . Albumin (test code = 2.7 g/dL 3.5-5.0 L 42774-0) Alkaline Phosphatase 99 U/L 40-150 (test code [...] Calcium (test code = 8.4 mg/dL 8.4-10.2 62856-9) AST (test code = 17 U/L 5-34 1920-8) ALT (test code = 10 U/L 6-55 1742-6) EGFR (test code = 11 mL/min/1.[place] [address]-2) NOT ACCURATE CREATININE CLEARANCE IN PREDICTING GLOMERULAR FILTRATION RATE . ESTIMATED GFR I S NOT APPLICABLE FOR DIALYSIS PATIEN TSEsvin BRANDI (test code = BRANDI) Bird Raiser ID - BS Lab Interpretation Abnormal (test code = 15303-4) [facility] [id number] 16:18:22 Test Item Value Reference Range Interpretation Comments Protein, Total (test 7.0 See_Comment [Autom ated code = 2885-2) message] The system which generated this result transmit levi reference range : 6.0 - 8.3 gm/dL . The reference range was not u sed to interpret th is result as normal/abnormal . Albumin (test code = 2.7 g/dL 3.5-5.0 L 90438-0) Alkaline Phosphatase 99 U/L 40-150 (test code [...] Calcium (test code = 8.4 mg/dL 8.4-10.2 51744-9) AST (test code = 17 U/L 5-34 192-8) ALT (test code = 10 U/L 6-55 1741-6) EGFR (test code = 11 mL/min/1.[place] [address]-0) NOT ACCURATE CREATININE CLEARANCE IN PREDICTING GLOMERULAR FILTRATION RATE . ESTIMATED GFR I S NOT APPLICABLE FOR DIALYSIS PATIEN BRANDI (test code = BRANDI) Bird Raiser ID - BS Lab Interpretation Abnormal (test code = 60892-7) [facility] [id number] 16:18:22 Test Item Value Reference Range Interpretation Comments Protein, Total (test 7.0 See_Comment [Autom ated code = 2885-2) message] The system which generated this result transmit levi reference range : 6.0 - 8.3 gm/dL . The reference range was not u sed to interpret th is result as normal/abnormal . Albumin (test code = 2.7 g/dL 3.5-5.0 L 97279-9) Alkaline Phosphatase 99 U/L 40-150 (test code [...] Calcium (test code = 8.4 mg/dL 8.4-10.2 34861-7) AST (test code = 17 U/L 5-34 1920-8) ALT (test code = 10 U/L 655 1742-6) EGFR (test code = 11 mL/min/1.[place] [address]-3) NOT ACCURATE CREATININE CLEARANCE IN PREDICTING GLOMERULAR FILTRATION RATE . ESTIMATED GFR I S NOT APPLICABLE FOR DIALYSIS PATIEN TS. BRANDI (test code = BRANDI) Bird Raiser ID - BS Lab Interpretation Abnormal (test code = 81766-0) [facility] [id number] 16:18:22 Test Item Value Reference Range Interpretation Comments Protein, Total (test 7.0 See_Comment [Autom ated code = 2885-2) message] The system which generated this result transmit levi reference range : 6.0 - 8.3 gm/dL . The reference range was not u sed to interpret th is result as normal/abnormal . Albumin (test code = 2.7 g/dL 3.5-5.0 L 68138-3) Alkaline Phosphatase 99 U/L 40-150 (test code [...] Calcium (test code = 8.4 mg/dL 8.4-10.2 29190-6) AST (test code = 17 U/L -34 1920-8) ALT (test code = 10 U/L 6-55 1742-6) EGFR (test code = 11 mL/min/1.[place] [address]-6) NOT ACCURATE CREATININE CLEARANCE IN PREDICTING GLOMERULAR FILTRATION RATE . ESTIMATED GFR I S NOT APPLICABLE FOR DIALYSIS PATIEN TSEsvin BRANDI (test code = BRANDI) Bird Raiser ID - BS Lab Interpretation Abnormal (test code = 04303-8) [facility] [id number] 16:18:22 Test Item Value Reference Range Interpretation Comments Protein, Total (test 7.0 See_Comment [Autom ated code = 2885-2) message] The system which generated this result transmit levi reference range : 6.0 - 8.3 gm/dL . The reference range was not u sed to interpret th is result as normal/abnormal . Albumin (test code = 2.7 g/dL 3.5-5.0 L 03801-3) Alkaline Phosphatase 99 U/L 40-150 (test code [...] Calcium (test code = 8.4 mg/dL 8.4-10.2 00162-7) AST (test code = 17 U/L -34 0-8) ALT (test code = 10 U/L 6-55 1742-6) EGFR (test code = 11 mL/min/1.[place] [address]-4) NOT ACCURATE CREATININE CLEARANCE IN PREDICTING GLOMERULAR FILTRATION RATE . ESTIMATED GFR I S NOT APPLICABLE FOR DIALYSIS PATIEN BRANDI (test code = BRANDI) Bird Raiser ID - BS Lab Interpretation Abnormal (test code = 01932-4) [facility] [id number] 16:18:22 Test Item Value Reference Range Interpretation Comments Protein, Total (test 7.0 See_Comment [Autom ated code = 2885-2) message] The system which generated this result transmit levi reference range : 6.0 - 8.3 gm/dL . The reference range was not u sed to interpret th is result as normal/abnormal . Albumin (test code = 2.7 g/dL 3.5-5.0 L 69792-5) Alkaline Phosphatase 99 U/L 40-150 (test code [...] Calcium (test code = 8.4 mg/dL 8.4-10.2 12908-8) AST (test code = 17 U/L 5-34 1920-8) ALT (test code = 10 U/L 1742-6) EGFR (test code = 11 mL/min/1.[place] [address]-9) NOT ACCURATE CREATININE CLEARANCE IN PREDICTING GLOMERULAR FILTRATION RATE . ESTIMATED GFR I S NOT APPLICABLE FOR DIALYSIS PATIEN BRANDI (test code = BRANDI) Bird Raiser ID - BS Lab Interpretation Abnormal (test code = 46746-2) [facility] [id number] 16:18:22 Test Item Value Reference Range Interpretation Comments Protein, Total (test 7.0 See_Comment [Autom ated code = 2885-2) message] The system which generated this result transmit levi reference range : 6.0 - 8.3 gm/dL . The reference range was not u sed to interpret th is result as normal/abnormal . Albumin (test code = 2.7 g/dL 3.5-5.0 L 54481-8) Alkaline Phosphatase 99 U/L 40-150 (test code [...] Calcium (test code = 8.4 mg/dL 8.4-10.2 32310-4) AST (test code = 17 U/L 5-34 1920-8) ALT (test code = 10 U/L 6-55 1742-6) EGFR (test code = 11 mL/min/1.73 sq [place] [address]-4) NOT ACCURATE CREATININE CLEARANCE IN PREDICTING GLOMERULAR FILTRATION RATE . ESTIMATED GFR I S NOT APPLICABLE FOR DIALYSIS PATIEN TS. BRANDI (test code = BRANDI) Bird Raiser ID - BS Lab Interpretation Abnormal (test code = 48973-2) [facility] [id number] 16:18:22 Test Item Value Reference Range Interpretation Comments Protein, Total (test 7.0 See_Comment [Autom ated code = 2885-2) message] The system which generated this result transmit levi reference range : 6.0 - 8.3 gm/dL . The reference range was not u sed to interpret th is result as normal/abnormal . Albumin (test code = 2.7 g/dL 3.5-5.0 L 06238-7) Alkaline Phosphatase 99 U/L 40-150 (test code [...] Calcium (test code = 8.4 mg/dL 8.4-10.2 92848-4) AST (test code = 17 U/L 5-34 1920-8) ALT (test code = 10 U/L 6-55 1742-6) EGFR (test code = 11 mL/min/1.[place] [address]-9) NOT ACCURATE CREATININE CLEARANCE IN PREDICTING GLOMERULAR FILTRATION RATE . ESTIMATED GFR I S NOT APPLICABLE FOR DIALYSIS PATIEN TSEsvin BRANDI (test code = BRANDI) Bird Raiser ID - BS Lab Interpretation Abnormal (test code = 22519-2) [facility] [id number] 16:18:22 Test Item Value Reference Range Interpretation Comments Protein, Total (test 7.0 See_Comment [Autom ated code = 2885-2) message] The system which generated this result transmit levi reference range : 6.0 - 8.3 gm/dL . The reference range was not u sed to interpret th is result as normal/abnormal . Albumin (test code = 2.7 g/dL 3.5-5.0 L 32149-7) Alkaline Phosphatase 99 U/L 40-150 (test code [...] Calcium (test code = 8.4 mg/dL 8.4-10.2 60465-3) AST (test code = 17 U/L 5-34 1920-8) ALT (test code = 10 U/L 6-55 1742-6) EGFR (test code = 11 mL/min/1.[place] [address]-7) NOT ACCURATE CREATININE CLEARANCE IN PREDICTING GLOMERULAR FILTRATION RATE . ESTIMATED GFR I S NOT APPLICABLE FOR DIALYSIS PATIEN TSEsvin BRANDI (test code = BRNADI) Bird Raiser ID - BS Lab Interpretation Abnormal (test code = 16143-2) [facility] [id number] 16:18:22 Test Item Value Reference Range Interpretation [...] S NOT APPLICABLE FOR DIALYSIS PATIEN TS. Bird Raiser ID - [id number] 16:17:20 Test Item Value Reference Range Interpretation Comments MAGNESIUM (BEAKER) (test code = 1.8 mg/dL 1.6-2.6 627) Bird Raiser ID - [id number] 16:10:37 Test Item Value Reference Range Interpretation Comments PARTIAL THROMBOPLASTIN TIME 34.5 seconds 22.5-36.0 (BEAKER) (test code = 760) PROTHROMBIN TIME/[id number] 16:10:03 Test Item Value Reference Range Interpretation Comments PROTIME (BEAKER) 17.2 seconds 11.9-14.2 H (test code = 759) INR (BEAKER) (test 1.43 See_Comment [Automat ed message] code = 370) The system [employer] generated this result transmitted ref erence range: <=5.90. The reference range was not used to int erpret this result as normal/abnormal . RECOMMENDED COUMADIN/WARFARIN INR THERAPY RANGESSTANDARD DOSE: 2.0 - 3.0 Includes: PROPHYLAXIS for venous thrombosis, systemic embolization; TREATMENT for venous thrombosis and/or pulmonary embolus.HIGH RISK: Target INR is 2.5-3.5 for patients with mechanical heart valves.CBC W/PLT COUNT & AUTO [id number] 16:01:31 Test Item Value Reference Range Interpretation [...] (BEAKER) (test code = 2801) NV, ANGIOGRAM, [id number] 09:13:00Reason for exam:->mycotic aneurysm rule [facility] : 1955 Sex: FFINAL REPORT DATE OF PROCEDURE: 06/16/2021 SURGEON: Mili Kent MD [employer] SAL[employer] REPRESENTATIVE: Eloy Portillo MD; Alisa Monae MD PREOPERATIVE DIAGNOSIS: Subarachnoid hemorrhage POST OPERATIVE DIAGNOSIS: Nonaneurysmal subarachnoid hemorrhage PROCEDURE: Diagnostic cerebral injury ANESTHESIA: Monitored anesthesia ESTIMATED BLOOD LOSS: Minimal COMPLICATIONS: None Vessels catheterized:Right common femoral arteryRight common carotid artery, cervicalRight common carotid, cerebralLeft common carotid artery, cervicalLeft common carotid, cerebralLeft vertebral artery *FEMORAL*5F sheathBentson WireVertebral CatheterTerumo Winger wireMynx Closure Device INDICATIONS: The patient is [...] arteries are patent. There is a right PRECISION AGRONOMIST variant anatomy. No evidence of aneurysm, vascular [...] cerebral artery is diminutive in size given PRECISION AGRONOMIST anatomy and the the left PRECISION AGRONOMIST is normal in caliber and contour. No [...] MDReport Verified Date/Time: 06/17/2021 09:13:43 Reading Location: [facility] Y026 Neuro Angio Reading Room BASIC METABOLIC [id number] 05:09:41 Test Item Value Reference Range Interpretation [...] S NOT APPLICABLE FOR DIALYSIS PATIEN TS. Bird Raiser ID - HIEN [id number] 05:07:06 Test Item Value Reference Range Interpretation Comments MAGNESIUM (BEAKER) (test code = 2.1 mg/dL 1.6-2.6 627) Bird Raiser ID - HIEN [id number] 05:07:06 Test Item Value Reference Range Interpretation Comments PHOSPHORUS (BEAKER) (test code = 5.7 mg/dL 2.3-4.7 H 604) Bird Raiser ID - HIEN MCBC W/PLT COUNT & AUTO [id number] 04:38:56 Test Item Value Reference Range Interpretation [...] PERCENT (BEAKER) (test code = 2801) POCT-GLUCOSE [id number] 00:10:32 Test Item Value Reference Range Interpretation Comments POC-GLUCOSE METER 221 mg/dL 70-110 H : TESTED A T [facility] 6720 (BEAKER) (test code = [place], 1538) [address]: Bird Raiser/Techni kelle ID = [id number] for SHAHLA BARRY POCT-GLUCOSE [id number] 18:11:32 Test Item Value Reference Range Interpretation Comments POC-GLUCOSE METER 170 mg/dL 70-110 H : TESTED A T [facility] 6720 (BEAKER) (test code = YUDY [place] [facility], 1538) [address]: Bird Raiser/Techni kelle ID = [id number] for Onelia Lorenz Blood [id number] 14:00:39 Test Item Value Reference Range Interpretation Comments Result (test code = No growth in 5 days 6463-4) [facility] [id number] 14:00:39 Test Item Value Reference Range Interpretation Comments Result (test code = No growth in 5 days 6463-4) [facility] [id number] 14:00:39 Test Item Value Reference Range Interpretation Comments Result (test code = No growth in 5 days 6463-4) [facility] [id number] 14:00:39 Test Item Value Reference Range Interpretation Comments Result (test code = No growth in 5 days 6463-4) [facility] [id number] 14:00:39 Test Item Value Reference Range Interpretation Comments Result (test code = No growth in 5 days 6463-4) [facility] [id number] 14:00:39 Test Item Value Reference Range Interpretation Comments Result (test code = No growth in 5 days 6463-4) [facility] [id number] 14:00:39 Test Item Value Reference Range Interpretation Comments Result (test code = No growth in 5 days 6463-4) [facility] [id number] 14:00:39 Test Item Value Reference Range Interpretation Comments Result (test code = No growth in 5 days 6463-4) [facility]2022-03-15 14:00:39 Test Item Value Reference Range Interpretation Comments Result (test code = No growth in 5 days 6463-4) [facility]2022-03-15 14:00:39 Test Item Value Reference Range Interpretation Comments Result (test code = No growth in 5 days 6463-4) [facility]2022-03-15 14:00:39 Test Item Value Reference Range Interpretation Comments Result (test code = No growth in 5 days 6463-4) [facility]2022-03-15 14:00:39 Test Item Value Reference Range Interpretation Comments Result (test code = No growth in 5 days 6463-4) [facility]2022-03-15 14:00:39 Test Item Value Reference Range Interpretation Comments Result (test code = No growth in 5 days 6463-4) [facility]2022-03-15 14:00:39 Test Item Value Reference Range Interpretation Comments Result (test code = No growth in 5 days 6463-4) [facility]2022-03-15 14:00:39 Test Item Value Reference Range Interpretation Comments Result (test code = No growth in 5 days 6463-4) [facility]2022-03-15 14:00:39 Test Item Value Reference Range Interpretation Comments Result (test code = No growth in 5 days 6463-4) [facility]2022-03-15 14:00:39 Test Item Value Reference Range Interpretation Comments Result (test code = No growth in 5 days 6463-4) [facility]2022-03-15 14:00:39 Test Item Value Reference Range Interpretation Comments CULTURE (BEAKER) (test No growth in 5 days code = 1095) MR, BRAIN, WITHOUT [id number] 13:02:00Pt has [place] [employer] ESSENTIO MRI L111/ [id number] Unlisted Reason for Exam - Click Yes and Enter Reason Below- >No Deos the patient have an implanted electronic device?->Yes [employer] scientific ESSENTIO MRI L111/ [id number] [facility] : 1955 Sex: FFINAL REPORT [...] MDReport Verified Date/Time: 06/16/2021 13:02:07 Reading Location: [address] Neuro Reading Room D [id number] 08:00:27 Test Item Value Reference Range Interpretation Comments CULTURE (BEAKER) (test No growth in 5 days code = 1095) POCT-GLUCOSE [id number] 07:30:10 Test Item Value Reference Range Interpretation Comments POC-GLUCOSE METER 159 mg/dL 70-110 H : TESTED A T [facility] 6720 (BEAKER) (test code = [place]UD[place], 1538) [address]: Bird Raiser/Techni kelle ID = [id number] for An Onelia ramirez BASIC METABOLIC [id number] 05:42:18 Test Item Value Reference Range Interpretation [...] S NOT APPLICABLE FOR DIALYSIS PATIEN TS. Bird Raiser ID - RAKAN [id number] 05:35:31 Test Item Value Reference Range Interpretation Comments MAGNESIUM (BEAKER) (test code = 2.1 mg/dL 1.6-2.6 627) Bird Raiser ID Bassam [place] [id number] 05:35:31 Test Item Value Reference Range Interpretation Comments PHOSPHORUS (BEAKER) (test code = 4.5 mg/dL 2.3-4.7 604) Bird Raiser ID Bassam RAKAN WCBC W/PLT COUNT & AUTO [id number] 04:43:33 Test Item Value Reference Range Interpretation [...] PERCENT (BEAKER) (test code = 2801) BLOOD [id number] 00:00:28 Test Item Value Reference Range Interpretation Comments CULTURE (BEAKER) (test No growth in 5 days code = 1095) The specimen volume collected for this blood culture was below the optimum (10 mL per bottle or 20 mL total). Use of lower volumes may adversely affect recovery and/or detection times of some organisms.POCT-GLUCOSE [id number] 21:39:58 Test Item Value Reference Range Interpretation Comments POC-GLUCOSE METER 173 mg/dL 70-110 H : Notified RN/MD: (AKASH) (test code = TESTED AT [facility] 1926 0495) GISELLA [facility], [address]: Bird Raiser/Techni kelle ID = [id number] for DE EMANUEL CHISHOLM Hepatic function [id number] 15:52:11 Test Item Value Reference Range Interpretation Comments Protein, Total (test 6.8 See_Comment [Autom ated code = 2885-2) message] The system which generated this result transmit levi reference range : 6.0 - 8.3 gm/dL . The reference range was not u sed to interpret th is result as normal/abnormal . Albumin (test code = 2.6 g/dL 3.5-5.0 L 74300-5) Total Bilirubin (test 0.3 mg/dL 0.2-1.2 code = 1974-) Bilirubin, Direct 0.2 mg/dL 0.1-0.5 (test code = 1967-) Alkaline Phosphatase 90 U/L 40-150 (test code = 6768-6) AST (test code = 17 U/L -34 1920-8) ALT (test code = 11 U/L 1741-6) BRANDI (test code = BRANDI) Bird Raiser ID - PIAYA L Lab Interpretation Abnormal (test code = 68197-4) [facility] [id number] 15:52:11 Test Item Value Reference Range Interpretation Comments Protein, Total (test 6.8 See_Comment [Autom ated code = 2885-2) message] The system which generated this result transmit levi reference range : 6.0 - 8.3 gm/dL . The reference range was not u sed to interpret th is result as normal/abnormal . Albumin (test code = 2.6 g/dL 3.5-5.0 L 51395-9) Total Bilirubin (test 0.3 mg/dL 0.2-1.2 code = 1974-) Bilirubin, Direct 0.2 mg/dL 0.1-0.5 (test code = 1967-7) Alkaline Phosphatase 90 U/L 40-150 (test code = 6768-6) AST (test code = 17 U/L 5-34 1920-8) ALT (test code = 11 U/L 655 1742-6) BRANDI (test code = BRANDI) Bird Raiser ID - PIAYA L Lab Interpretation Abnormal (test code = 29252-2) [facility] [id number] 15:52:11 Test Item Value Reference Range Interpretation Comments Protein, Total (test 6.8 See_Comment [Autom ated code = 2885-2) message] The system which generated this result transmit levi reference range : 6.0 - 8.3 gm/dL . The reference range was not u sed to interpret th is result as normal/abnormal . Albumin (test code = 2.6 g/dL 3.5-5.0 L 35329-3) Total Bilirubin (test 0.3 mg/dL 0.2-1.2 code = 1974-) Bilirubin, Direct 0.2 mg/dL 0.1-0.5 (test code = 1967-) Alkaline Phosphatase 90 U/L 40-150 (test code = 6768-6) AST (test code = 17 U/L 1919-8) ALT (test code = 11 U/L 1742-6) BRANDI (test code = BRANDI) Bird Raiser ID - PIAYA L Lab Interpretation Abnormal (test code = 33285-3) [facility] [id number] 15:52:11 Test Item Value Reference Range Interpretation Comments Protein, Total (test 6.8 See_Comment [Autom ated code = 2885-2) message] The system which generated this result transmit levi reference range : 6.0 - 8.3 gm/dL . The reference range was not u sed to interpret th is result as normal/abnormal . Albumin (test code = 2.6 g/dL 3.5-5.0 L 06479-1) Total Bilirubin (test 0.3 mg/dL 0.2-1.2 code = 1974-) Bilirubin, Direct 0.2 mg/dL 0.1-0.5 (test code = 1967-) Alkaline Phosphatase 90 U/L 40-150 (test code = 6768-6) AST (test code = 17 U/L 5-34 1920-8) ALT (test code = 11 U/L 655 1742-6) BRANDI (test code = BRANDI) Bird Raiser ID - PIAYAD L Lab Interpretation Abnormal (test code = 91737-6) [facility] [id number] 15:52:11 Test Item Value Reference Range Interpretation Comments Protein, Total (test 6.8 See_Comment [Autom ated code = 2885-2) message] The system which generated this result transmit levi reference range : 6.0 - 8.3 gm/dL . The reference range was not u sed to interpret th is result as normal/abnormal . Albumin (test code = 2.6 g/dL 3.5-5.0 L 28282-2) Total Bilirubin (test 0.3 mg/dL 0.2-1.2 code = 1974-) Bilirubin, Direct 0.2 mg/dL 0.1-0.5 (test code = 1967-) Alkaline Phosphatase 90 U/L 40-150 (test code = 6768-6) AST (test code = 17 U/L 192-8) ALT (test code = 11 U/L 1742-6) BRANDI (test code = BRANDI) Bird Raiser ID - LIANA L Lab Interpretation Abnormal (test code = 39495-4) [facility] [id number] 15:52:11 Test Item Value Reference Range Interpretation Comments Protein, Total (test 6.8 See_Comment [Autom ated code = 2885-2) message] The system which generated this result transmit levi reference range : 6.0 - 8.3 gm/dL . The reference range was not u sed to interpret th is result as normal/abnormal . Albumin (test code = 2.6 g/dL 3.5-5.0 L 12095-3) Total Bilirubin (test 0.3 mg/dL 0.2-1.2 code = 1974-) Bilirubin, Direct 0.2 mg/dL 0.1-0.5 (test code = 1967-) Alkaline Phosphatase 90 U/L 40-150 (test code = 6768-6) AST (test code = 17 U/L 5-34 1920-8) ALT (test code = 11 U/L 1742-6) BRANDI (test code = BRANDI) Bird Raiser ID - PIAYA L Lab Interpretation Abnormal (test code = 24511-2) [facility] [id number] 15:52:11 Test Item Value Reference Range Interpretation Comments Protein, Total (test 6.8 See_Comment [Autom ated code = 2885-2) message] The system which generated this result transmit elvi reference range : 6.0 - 8.3 gm/dL . The reference range was not u sed to interpret th is result as normal/abnormal . Albumin (test code = 2.6 g/dL 3.5-5.0 L 51397-2) Total Bilirubin (test 0.3 mg/dL 0.2-1.2 code = 1974-) Bilirubin, Direct 0.2 mg/dL 0.1-0.5 (test code = 1967-) Alkaline Phosphatase 90 U/L 40-150 (test code = 6768-6) AST (test code = 17 U/L 1919-8) ALT (test code = 11 U/L 1742-6) BRANDI (test code = BRANDI) Bird Raiser ID - PIAYA L Lab Interpretation Abnormal (test code = 08507-9) [facility] [id number] 15:52:11 Test Item Value Reference Range Interpretation Comments Protein, Total (test 6.8 See_Comment [Autom ated code = 2885-2) message] The system which generated this result transmit levi reference range : 6.0 - 8.3 gm/dL . The reference range was not u sed to interpret th is result as normal/abnormal . Albumin (test code = 2.6 g/dL 3.5-5.0 L 87936-9) Total Bilirubin (test 0.3 mg/dL 0.2-1.2 code = 1974-) Bilirubin, Direct 0.2 mg/dL 0.1-0.5 (test code = 1967-) Alkaline Phosphatase 90 U/L 40-150 (test code = 6768-6) AST (test code = 17 U/L 192-8) ALT (test code = 11 U/L 1742-6) BRANDI (test code = BRANDI) Bird Raiser ID - PIAYA L Lab Interpretation Abnormal (test code = 50602-6) [facility] [id number] 15:52:11 Test Item Value Reference Range Interpretation Comments Protein, Total (test 6.8 See_Comment [Autom ated code = 2885-2) message] The system which generated this result transmit levi reference range : 6.0 - 8.3 gm/dL . The reference range was not u sed to interpret th is result as normal/abnormal . Albumin (test code = 2.6 g/dL 3.5-5.0 L 08689-4) Total Bilirubin (test 0.3 mg/dL 0.2-1.2 code = 1974-2) Bilirubin, Direct 0.2 mg/dL 0.1-0.5 (test code = 1967-7) Alkaline Phosphatase 90 U/L 40-150 (test code = 6768-6) AST (test code = 17 U/L 5-34 1920-8) ALT (test code = 11 U/L 6- 1742-6) BRANDI (test code = BRANDI) Bird Raiser ID - PIAYAD L Lab Interpretation Abnormal (test code = 73939-0) [facility] [id number] 15:52:11 Test Item Value Reference Range Interpretation Comments Protein, Total (test 6.8 See_Comment [Autom ated code = 2885-2) message] The system which generated this result transmit levi reference range : 6.0 - 8.3 gm/dL . The reference range was not u sed to interpret th is result as normal/abnormal . Albumin (test code = 2.6 g/dL 3.5-5.0 L 60200-6) Total Bilirubin (test 0.3 mg/dL 0.2-1.2 code = 1974-) Bilirubin, Direct 0.2 mg/dL 0.1-0.5 (test code = 1967-) Alkaline Phosphatase 90 U/L 40-150 (test code = 6768-6) AST (test code = 17 U/L 5-34 1920-8) ALT (test code = 11 U/L 6-55 1742-6) BRANDI (test code = BRANDI) Bird Raiser ID - PIAYA L Lab Interpretation Abnormal (test code = 74518-4) [facility] [id number] 15:52:11 Test Item Value Reference Range Interpretation Comments Protein, Total (test 6.8 See_Comment [Autom ated code = 2885-2) message] The system which generated this result transmit levi reference range : 6.0 - 8.3 gm/dL . The reference range was not u sed to interpret th is result as normal/abnormal . Albumin (test code = 2.6 g/dL 3.5-5.0 L 89351-9) Total Bilirubin (test 0.3 mg/dL 0.2-1.2 code = 1974-2) Bilirubin, Direct 0.2 mg/dL 0.1-0.5 (test code = 1967-7) Alkaline Phosphatase 90 U/L 40-150 (test code = 6768-6) AST (test code = 17 U/L 5-34 1920-8) ALT (test code = 11 U/L 6-55 1742-6) BRANDI (test code = BRANDI) Bird Raiser ID - PIAYAD L Lab Interpretation Abnormal (test code = 80496-2) [facility] [id number] 15:52:11 Test Item Value Reference Range Interpretation Comments Protein, Total (test 6.8 See_Comment [Autom ated code = 2885-2) message] The system which generated this result transmit levi reference range : 6.0 - 8.3 gm/dL . The reference range was not u sed to interpret th is result as normal/abnormal . Albumin (test code = 2.6 g/dL 3.5-5.0 L 61734-7) Total Bilirubin (test 0.3 mg/dL 0.2-1.2 code = 1974-2) Bilirubin, Direct 0.2 mg/dL 0.1-0.5 (test code = 1967-) Alkaline Phosphatase 90 U/L 40-150 (test code = 6768-6) AST (test code = 17 U/L 5-34 1920-8) ALT (test code = 11 U/L 6-55 1742-6) BRANDI (test code = BRANDI) Bird Raiser ID - PIAYA L Lab Interpretation Abnormal (test code = 39562-7) [facility] [id number] 15:52:11 Test Item Value Reference Range Interpretation Comments Protein, Total (test 6.8 See_Comment [Autom ated code = 2885-2) message] The system which generated this result transmit levi reference range : 6.0 - 8.3 gm/dL . The reference range was not u sed to interpret th is result as normal/abnormal . Albumin (test code = 2.6 g/dL 3.5-5.0 L 19181-7) Total Bilirubin (test 0.3 mg/dL 0.2-1.2 code = 1974-2) Bilirubin, Direct 0.2 mg/dL 0.1-0.5 (test code = 1967-7) Alkaline Phosphatase 90 U/L 40-150 (test code = 6768-6) AST (test code = 17 U/L 192-8) ALT (test code = 11 U/L 1742-6) BRANDI (test code = BRANDI) Bird Raiser ID - PIAYA L Lab Interpretation Abnormal (test code = 98324-3) [facility] [id number] 15:52:11 Test Item Value Reference Range Interpretation Comments Protein, Total (test 6.8 See_Comment [Autom ated code = 2885-2) message] The system which generated this result transmit levi reference range : 6.0 - 8.3 gm/dL . The reference range was not u sed to interpret th is result as normal/abnormal . Albumin (test code = 2.6 g/dL 3.5-5.0 L 85480-1) Total Bilirubin (test 0.3 mg/dL 0.2-1.2 code = 1974-05) Bilirubin, Direct 0.2 mg/dL 0.1-0.5 (test code = 1967-10) Alkaline Phosphatase 90 U/L 40-150 (test code = 6768-6) AST (test code = 17 U/L 34 1920-8) ALT (test code = 11 U/L 1742-6) BRANDI (test code = BRANDI) Bird Raiser ID - PIAYA L Lab Interpretation Abnormal (test code = 92194-7) [facility] [id number] 15:52:11 Test Item Value Reference Range Interpretation Comments Protein, Total (test 6.8 See_Comment [Autom ated code = 2885-2) message] The system which generated this result transmit levi reference range : 6.0 - 8.3 gm/dL . The reference range was not u sed to interpret th is result as normal/abnormal . Albumin (test code = 2.6 g/dL 3.5-5.0 L 08886-5) Total Bilirubin (test 0.3 mg/dL 0.2-1.2 code = 1974-) Bilirubin, Direct 0.2 mg/dL 0.1-0.5 (test code = 1967-10) Alkaline Phosphatase 90 U/L 40-150 (test code = 6768-6) AST (test code = 17 U/L 34 1920-8) ALT (test code = 11 U/L 1742-6) BRANDI (test code = BRANDI) Bird Raiser ID - PIAYA L Lab Interpretation Abnormal (test code = 88902-7) [facility] [id number] 15:52:11 Test Item Value Reference Range Interpretation Comments Protein, Total (test 6.8 See_Comment [Autom ated code = 2885-2) message] The system which generated this result transmit levi reference range : 6.0 - 8.3 gm/dL . The reference range was not u sed to interpret th is result as normal/abnormal . Albumin (test code = 2.6 g/dL 3.5-5.0 L 36216-9) Total Bilirubin (test 0.3 mg/dL 0.2-1.2 code = 1974-05) Bilirubin, Direct 0.2 mg/dL 0.1-0.5 (test code = 1967-10) Alkaline Phosphatase 90 U/L 40-150 (test code = 6768-6) AST (test code = 17 U/L 34 1920-8) ALT (test code = 11 U/L 1742-6) BRANDI (test code = BRANDI) Bird Raiser ID - PIAYA L Lab Interpretation Abnormal (test code = 22151-5) [facility] [id number] 15:52:11 Test Item Value Reference Range Interpretation Comments Protein, Total (test 6.8 See_Comment [Autom ated code = 2885-2) message] The system which generated this result transmit levi reference range : 6.0 - 8.3 gm/dL . The reference range was not u sed to interpret th is result as normal/abnormal . Albumin (test code = 2.6 g/dL 3.5-5.0 L 41727-0) Total Bilirubin (test 0.3 mg/dL 0.2-1.2 code = 1975-2) Bilirubin, Direct 0.2 mg/dL 0.1-0.5 (test code = 1968-7) Alkaline Phosphatase 90 U/L 40-150 (test code = 6768-6) AST (test code = 17 U/L 5-34 1920-8) ALT (test code = 11 U/L 6-55 1742-6) BRANDI (test code = BRANDI) Bird Raiser ID - LIANA Guevara Lab Interpretation Abnormal (test code = 14235-9) [facility] [id number] 15:52:11 Test Item Value Reference Range Interpretation [...] (test code = 11 U/L -55 347) Bird Raiser ID Bassam GAINES LHeparin [id number] 12:21:31 Test Item Value Reference Range Interpretation Comments Heparin Ab (test code Negative Negative = 3267-2) Heparin Antibody 0.247 <0.400 Optical Density (test code = 2659) 4T Total Score (test 4 code = 2661) BRANDI (test code = BRANDI) Probability of HIT based on scoring system: 6-8 = High probability; 4-5 = intermediate probability; 0-3 = low probability [facility] [id number] 12:21:31 Test Item Value Reference Range Interpretation Comments Heparin Ab (test code Negative Negative = 3267-2) Heparin Antibody 0.247 <0.400 Optical Density (test code = 2659) 4T Total Score (test 4 code = 2661) BRANDI (test code = BRANDI) Probability of HIT based on scoring system: 6-8 = High probability; 4-5 = intermediate probability; 0-3 = low probability [facility] [id number] 12:21:31 Test Item Value Reference Range Interpretation Comments Heparin Ab (test code Negative Negative = 3267-2) Heparin Antibody 0.247 <0.400 Optical Density (test code = 2659) 4T Total Score (test 4 code = 2661) BRANDI (test code = BRANDI) Probability of HIT based on scoring system: 6-8 = High probability; 4-5 = intermediate probability; 0-3 = low probability [facility] [id number] 12:21:31 Test Item Value Reference Range Interpretation Comments Heparin Ab (test code Negative Negative = 3267-2) Heparin Antibody 0.247 <0.400 Optical Density (test code = 2659) 4T Total Score (test 4 code = 2661) BRANDI (test code = BRANDI) Probability of HIT based on scoring system: 6-8 = High probability; 4-5 = intermediate probability; 0-3 = low probability [facility] [id number] 12:21:31 Test Item Value Reference Range Interpretation Comments Heparin Ab (test code Negative Negative = 3267-2) Heparin Antibody 0.247 <0.400 Optical Density (test code = 2659) 4T Total Score (test 4 code = 2661) BRANDI (test code = BRANDI) Probability of HIT based on scoring system: 6-8 = High probability; 4-5 = intermediate probability; 0-3 = low probability [facility] [id number] 12:21:31 Test Item Value Reference Range Interpretation Comments Heparin Ab (test code Negative Negative = 3267-2) Heparin Antibody 0.247 <0.400 Optical Density (test code = 2659) 4T Total Score (test 4 code = 2661) BRANDI (test code = BRANDI) Probability of HIT based on scoring system: 6-8 = High probability; 4-5 = intermediate probability; 0-3 = low probability [facility] [id number] 12:21:31 Test Item Value Reference Range Interpretation Comments Heparin Ab (test code Negative Negative = 3267-2) Heparin Antibody 0.247 <0.400 Optical Density (test code = 2659) 4T Total Score (test 4 code = 2661) BRANDI (test code = BRANDI) Probability of HIT based on scoring system: 6-8 = High probability; 4-5 = intermediate probability; 0-3 = low probability [facility] [id number] 12:21:31 Test Item Value Reference Range Interpretation Comments Heparin Ab (test code Negative Negative = 3267-2) Heparin Antibody 0.247 <0.400 Optical Density (test code = 2659) 4T Total Score (test 4 code = 2661) BRANDI (test code = BRANDI) Probability of HIT based on scoring system: 6-8 = High probability; 4-5 = intermediate probability; 0-3 = low probability [facility] [id number] 12:21:31 Test Item Value Reference Range Interpretation Comments Heparin Ab (test code Negative Negative = 3267-2) Heparin Antibody 0.247 <0.400 Optical Density (test code = 2659) 4T Total Score (test 4 code = 2661) BRANDI (test code = BRANDI) Probability of HIT based on scoring system: 6-8 = High probability; 4-5 = intermediate probability; 0-3 = low probability [facility] [id number] 12:21:31 Test Item Value Reference Range Interpretation Comments Heparin Ab (test code Negative Negative = 3267-2) Heparin Antibody 0.247 <0.400 Optical Density (test code = 2659) 4T Total Score (test 4 code = 2661) BRANDI (test code = BRANDI) Probability of HIT based on scoring system: 6-8 = High probability; 4-5 = intermediate probability; 0-3 = low probability [facility] [id number] 12:21:31 Test Item Value Reference Range Interpretation Comments Heparin Ab (test code Negative Negative = 3267-2) Heparin Antibody 0.247 <0.400 Optical Density (test code = 2659) 4T Total Score (test 4 code = 2661) BRANDI (test code = BRANDI) Probability of HIT based on scoring system: 6-8 = High probability; 4-5 = intermediate probability; 0-3 = low probability [facility] [id number] 12:21:31 Test Item Value Reference Range Interpretation Comments Heparin Ab (test code Negative Negative = 3267-2) Heparin Antibody 0.247 <0.400 Optical Density (test code = 2659) 4T Total Score (test 4 code = 2661) BRANDI (test code = BRANDI) Probability of HIT based on scoring system: 6-8 = High probability; 4-5 = intermediate probability; 0-3 = low probability [facility] [id number] 12:21:31 Test Item Value Reference Range Interpretation Comments Heparin Ab (test code Negative Negative = 3267-2) Heparin Antibody 0.247 <0.400 Optical Density (test code = 2659) 4T Total Score (test 4 code = 2661) BRANDI (test code = BRANDI) Probability of HIT based on scoring system: 6-8 = High probability; 4-5 = intermediate probability; 0-3 = low probability [facility] [id number] 12:21:31 Test Item Value Reference Range Interpretation Comments Heparin Ab (test code Negative Negative = 3267-2) Heparin Antibody 0.247 <0.400 Optical Density (test code = 2659) 4T Total Score (test 4 code = 2661) BRANDI (test code = BRANDI) Probability of HIT based on scoring system: 6-8 = High probability; 4-5 = intermediate probability; 0-3 = low probability [facility] [id number] 12:21:31 Test Item Value Reference Range Interpretation Comments Heparin Ab (test code Negative Negative = 3267-2) Heparin Antibody 0.247 <0.400 Optical Density (test code = 2659) 4T Total Score (test 4 code = 2661) BRANDI (test code = BRANDI) Probability of HIT based on scoring system: 6-8 = High probability; 4-5 = intermediate probability; 0-3 = low probability [facility] [id number] 12:21:31 Test Item Value Reference Range Interpretation Comments Heparin Ab (test code Negative Negative = 3267-2) Heparin Antibody 0.247 <0.400 Optical Density (test code = 2659) 4T Total Score (test 4 code = 2661) BRANDI (test code = BRANDI) Probability of HIT based on scoring system: 6-8 = High probability; 4-5 = intermediate probability; 0-3 = low probability [facility] [id number] 12:21:31 Test Item Value Reference Range Interpretation Comments Heparin Ab (test code Negative Negative = 3267-2) Heparin Antibody 0.247 <0.400 Optical Density (test code = 2659) 4T Total Score (test 4 code = 2661) BRANDI (test code = BRANDI) Probability of HIT based on scoring system: 6-8 = High probability; 4-5 = intermediate probability; 0-3 = low probability [facility] [id number] 12:21:31 Test Item Value Reference Range Interpretation Comments HEPARIN ANTIBODY (BEAKER) (test code Negative Negative = 646) HEPARIN ANTIBODY OD (BEAKER) (test 0.247 <0.400 code = 2659) 4T TOTAL SCORE (BEAKER) (test code = 4 2661) Probability of HIT based on scoring system: 6-8 = High probability; 4-5 = intermediate probability; 0-3 = [facility], [id number] 08:07:00 Test Item Value Reference Range Interpretation Comments ABO Grouping (test code = 2588) O Rh Factor (test code = 2589) [facility], [id number] 08:07:00 Test Item Value Reference Range Interpretation Comments ABO Grouping (test code = 2588) O Rh Factor (test code = 2589) [facility], [id number] 08:07:00 Test Item Value Reference Range Interpretation Comments ABO Grouping (test code = 2588) O Rh Factor (test code = 2589) [facility], [id number] 08:07:00 Test Item Value Reference Range Interpretation Comments ABO Grouping (test code = 2588) O Rh Factor (test code = 2589) [facility], [id number] 08:07:00 Test Item Value Reference Range Interpretation Comments ABO Grouping (test code = 2588) O Rh Factor (test code = 2589) [facility], [id number] 08:07:00 Test Item Value Reference Range Interpretation Comments ABO Grouping (test code = 2588) O Rh Factor (test code = 2589) [facility], [id number] 08:07:00 Test Item Value Reference Range Interpretation Comments ABO Grouping (test code = 2588) O Rh Factor (test code = 2589) [facility], [id number] 08:07:00 Test Item Value Reference Range Interpretation Comments ABO Grouping (test code = 2588) O Rh Factor (test code = 2589) [facility], [id number] 08:07:00 Test Item Value Reference Range Interpretation Comments ABO Grouping (test code = 2588) O Rh Factor (test code = 2589) [facility], [id number] 08:07:00 Test Item Value Reference Range Interpretation Comments ABO Grouping (test code = 2588) O Rh Factor (test code = 2589) [facility], [id number] 08:07:00 Test Item Value Reference Range Interpretation Comments ABO Grouping (test code = 2588) O Rh Factor (test code = 2589) [facility], [id number] 08:07:00 Test Item Value Reference Range Interpretation Comments ABO Grouping (test code = 2588) O Rh Factor (test code = 2589) [facility], [id number] 08:07:00 Test Item Value Reference Range Interpretation Comments ABO Grouping (test code = 2588) O Rh Factor (test code = 2589) [facility], [id number] 08:07:00 Test Item Value Reference Range Interpretation Comments ABO Grouping (test code = 2588) O Rh Factor (test code = 2589) [facility], [id number] 08:07:00 Test Item Value Reference Range Interpretation Comments ABO Grouping (test code = 2588) O Rh Factor (test code = 2589) [facility], [id number] 08:07:00 Test Item Value Reference Range Interpretation Comments ABO Grouping (test code = 2588) O Rh Factor (test code = 2589) [facility], [id number] 08:07:00 Test Item Value Reference Range Interpretation Comments ABO Grouping (test code = 2588) O Rh Factor (test code = 2589) POS [facility] [id number] 05:19:52 Test Item Value Reference Range Interpretation [...] S NOT APPLICABLE FOR DIALYSIS PATIEN TS. Bird Raiser ID - LIANA [id number] 05:09:04 Test Item Value Reference Range Interpretation Comments PHOSPHORUS (BEAKER) (test code = 4.1 mg/dL 2.3-4.7 604) Bird Raiser ID - LIANA [id number] 05:09:03 Test Item Value Reference Range Interpretation Comments MAGNESIUM (BEAKER) (test code = 2.0 mg/dL 1.6-2.6 627) Bird Raiser ID - LIANA LPT/[id number] 04:53:34 Test Item Value Reference Interpretation Comments [...] PTT (test code = 32.5 See_Comment [Automated 11163-1) message] The system which generated this result [...] valves. Lab Interpretation Normal (test code = 88027-0) [facility][id number] 04:53:34 Test Item Value Reference Interpretation Comments Range Protime (test code = 13.7 See_Comment [Autom ated 5902-2) message] The system which generated this result transmitted reference range : 11.9 - 14.2 seconds. The reference range was not used to interpret this result as normal/abnormal . INR (test code = 1.07 See_Comment [Automated 2891-6) message] The system which generated this result transmitted reference range : <=5.90. The reference range was not used to interpret this result as normal/abnormal . PTT (test code = 32.5 See_Comment [Automated 59039-3) message] The system which generated this result [...] valves. Lab Interpretation Normal (test code = 97541-0) [facility]PT/sYOQ3101-72-94 04:53:34 Test Item Value Reference Interpretation Comments [...] PTT (test code = 32.5 See_Comment [Automated 04172-6) message] The system which generated this result [...] valves. Lab Interpretation Normal (test code = 76773-7) [facility]/oCCQ8782-26-61 04:53:34 Test Item Value Reference Interpretation Comments [...] PTT (test code = 32.5 See_Comment [Automated 39795-9) message] The system which generated this result [...] valves. Lab Interpretation Normal (test code = 06101-3) [facility]PT/[id number] 04:53:34 Test Item Value Reference Interpretation Comments [...] PTT (test code = 32.5 See_Comment [Automated 82115-7) message] The system which generated this result [...] valves. Lab Interpretation Normal (test code = 80066-0) [facility]/nSEB3537-62-26 04:53:34 Test Item Value Reference Interpretation Comments [...] PTT (test code = 32.5 See_Comment [Automated 23781-8) message] The system which generated this result [...] valves. Lab Interpretation Normal (test code = 11673-3) [facility]/eNZQ1157-03-29 04:53:34 Test Item Value Reference Interpretation Comments [...] PTT (test code = 32.5 See_Comment [Automated 70140-0) message] The system which generated this result [...] valves. Lab Interpretation Normal (test code = 33565-8) [facility]/cEIZ8669-82-33 04:53:34 Test Item Value Reference Interpretation Comments [...] PTT (test code = 32.5 See_Comment [Automated 67884-9) message] The system which generated this result [...] valves. Lab Interpretation Normal (test code = 68227-8) [facility]/nWTV8165-51-08 04:53:34 Test Item Value Reference Interpretation Comments [...] PTT (test code = 32.5 See_Comment [Automated 10496-5) message] The system which generated this result [...] valves. Lab Interpretation Normal (test code = 12848-5) [facility]/bIOU5991-18-70 04:53:34 Test Item Value Reference Interpretation Comments [...] PTT (test code = 32.5 See_Comment [Automated 23280-1) message] The system which generated this result [...] valves. Lab Interpretation Normal (test code = 07769-1) [facility]/iBHZ3427-28-72 04:53:34 Test Item Value Reference Interpretation Comments [...] PTT (test code = 32.5 See_Comment [Automated 14593-3) message] The system which generated this result [...] valves. Lab Interpretation Normal (test code = 24518-6) [facility]/jBHJ0536-96-13 04:53:34 Test Item Value Reference Interpretation Comments [...] PTT (test code = 32.5 See_Comment [Automated 33095-9) message] The system which generated this result [...] valves. Lab Interpretation Normal (test code = 25438-3) [facility]/uMJJ5326-05-17 04:53:34 Test Item Value Reference Interpretation Comments [...] PTT (test code = 32.5 See_Comment [Automated 28168-6) message] The system which generated this result [...] valves. Lab Interpretation Normal (test code = 27052-4) [facility]/fHHR5891-24-54 04:53:34 Test Item Value Reference Interpretation Comments [...] PTT (test code = 32.5 See_Comment [Automated 40226-3) message] The system which generated this result [...] valves. Lab Interpretation Normal (test code = 92980-0) [facility] HospitalPT/[id number] 04:53:34 Test Item Value Reference Interpretation Comments [...] PTT (test code = 32.5 See_Comment [Automated 77762-4) message] The system which generated this result [...] valves. Lab Interpretation Normal (test code = 07945-4) [id number] 04:53:34 Test Item Value Reference Interpretation Comments [...] PTT (test code = 32.5 See_Comment [Automated 92838-1) message] The system which generated this result [...] valves. Lab Interpretation Normal (test code = 45698-0) [facility]/[id number] 04:53:34 Test Item Value Reference Interpretation Comments Range Protime (test code = 13.7 See_Comment [Autom ated 5902-2) message] The system which generated this result transmitted reference range : 11.9 - 14.2 seconds. The reference range was not used to interpret this result as normal/abnormal . INR (test code = 1.07 <=5.90 6301-6) PTT (test code = 32.5 See_Comment [Automated 79810-5) message] The system which generated this result [...] valves. Lab Interpretation Normal (test code = 93337-6) [facility]/[id number] 04:53:34 Test Item Value Reference Range Interpretation [...] mechanical heart valves.CBC W/PLT COUNT & AUTO [id number] 04:46:52 Test Item Value Reference Range Interpretation [...] PERCENT (BEAKER) (test code = 2801) POCT-GLUCOSE [id number] 11:21:11 Test Item Value Reference Range Interpretation Comments POC-GLUCOSE METER 204 mg/dL 70-110 H : TESTED A T [facility] 6720 (BEAKER) (test code = [facility], 1538) 97306: Bird Raiser/Techni kelle ID = [id number] for Ag erinlar Meeta POCT-GLUCOSE [id number] 07:42:50 Test Item Value Reference Range Interpretation Comments POC-GLUCOSE METER 226 mg/dL 70-110 H : TESTED A T [facility] 6720 (BEAKER) (test code = [facility], 1538) 11031: Bird Raiser/Techni kelle ID = [id number] for Ag laviniarCindyMeeta BASIC METABOLIC [id number] 05:13:30 Test Item Value Reference Range Interpretation [...] S NOT APPLICABLE FOR DIALYSIS PATIEN TS. Bird Raiser ID - LIANA [id number] 05:11:53 Test Item Value Reference Range Interpretation Comments PHOSPHORUS (BEAKER) (test code = 3.3 mg/dL 2.3-4.7 604) Bird Raiser ID - LIANA [id number] 05:11:52 Test Item Value Reference Range Interpretation Comments MAGNESIUM (BEAKER) (test code = 2.0 mg/dL 1.6-2.6 627) Bird Raiser ID - LIANA LCBC W/PLT COUNT & AUTO [id number] 04:23:17 Test Item Value Reference Range Interpretation [...] PERCENT (BEAKER) (test code = 2801) POCT-GLUCOSE [id number] 17:21:48 Test Item Value Reference Range Interpretation Comments POC-GLUCOSE METER 209 mg/dL 70-110 H : TESTED A T [facility] 6720 (BEAKER) (test code = [facility], 1538) 77336: Bird Raiser/Techni kelle ID = [id number] for ANTELMO HOLGUIN, PADMINI POCT-GLUCOSE [id number] 12:56:45 Test Item Value Reference Range Interpretation Comments POC-GLUCOSE METER 81 mg/dL 70-110 : TESTED A T [facility] 6720 (BEAKER) (test code = [facility] [employer] [facility], 1538) 52160: Bird Raiser/Techni kelle ID = [id number] for MARY SKY, PADMINI [id number] 09:21:04 Test Item Value Reference Range Interpretation Comments Ferritin (test code = 1418.54 ng/mL 5.00-275.00 H 2276-4) BRANDI (test code = BRANDI) Bird Raiser ID - HIEN Dennis Lab Interpretation (test Abnormal code = 36038-3) [facility] 09:21:04 Test Item Value Reference Range Interpretation Comments Ferritin (test code = 1418.54 ng/mL 5.00-275.00 H 2276-4) BRANDI (test code = BRANDI) Bird Raiser ID - HIEN M Lab Interpretation (test Abnormal code = 87602-4) [facility] 09:21:04 Test Item Value Reference Range Interpretation Comments Ferritin (test code = 1418.54 ng/mL 5.00-275.00 H 2276-4) BRANDI (test code = BRANDI) Bird Raiser ID - HIEN M Lab Interpretation (test Abnormal code = 42111-9) [facility] 09:21:04 Test Item Value Reference Range Interpretation Comments Ferritin (test code = 1418.54 ng/mL 5.00-275.00 H 2276-4) BRANDI (test code = BRANDI) Bird Raiser ID - HIEN M Lab Interpretation (test Abnormal code = 59425-2) [facility]2022-03-12 09:21:04 Test Item Value Reference Range Interpretation Comments Ferritin (test code = 1418.54 ng/mL 5.00-275.00 H 2276-4) BRANDI (test code = BRANDI) Bird Raiser ID - HIEN M Lab Interpretation (test Abnormal code = 91678-6) [facility] 09:21:04 Test Item Value Reference Range Interpretation Comments Ferritin (test code = 1418.54 ng/mL 5.00-275.00 H 2276-4) BRANDI (test code = BRANDI) Bird Raiser ID - HIEN M Lab Interpretation (test Abnormal code = 13616-6) [facility] 09:21:04 Test Item Value Reference Range Interpretation Comments Ferritin (test code = 1418.54 ng/mL 5.00-275.00 H 2276-4) BRANDI (test code = BRANDI) Bird Raiser ID - HIEN M Lab Interpretation (test Abnormal code = 57209-5) [facility] 09:21:04 Test Item Value Reference Range Interpretation Comments Ferritin (test code = 1418.54 ng/mL 5.00-275.00 H 2276-4) BRANDI (test code = BRANDI) Bird Raiser ID - HIEN M Lab Interpretation (test Abnormal code = 67062-0) [address]03-12 09:21:04 Test Item Value Reference Range Interpretation Comments Ferritin (test code = 1418.54 ng/mL 5.00-275.00 H 2276-4) BRANDI (test code = BRANDI) Bird Raiser ID - IHEN M Lab Interpretation (test Abnormal code = 18729-4) [facility]2022-03-12 09:21:04 Test Item Value Reference Range Interpretation Comments Ferritin (test code = 1418.54 ng/mL 5.00-275.00 H 2276-4) BRANDI (test code = BRANDI) Bird Raiser ID - HIEN M Lab Interpretation (test Abnormal code = 35562-8) [place] [address]202-03-12 09:21:04 Test Item Value Reference Range Interpretation Comments Ferritin (test code = 1418.54 ng/mL 5.00-275.00 H 2276-4) BRANDI (test code = BRANDI) Bird Raiser ID - HIEN M Lab Interpretation (test Abnormal code = 18533-6) [facility]2022-03-12 09:21:04 Test Item Value Reference Range Interpretation Comments Ferritin (test code = 1418.54 ng/mL 5.00-275.00 H 2276-4) BRANDI (test code = BRANDI) Bird Raiser ID - HIEN M Lab Interpretation (test Abnormal code = 61390-9) [facility]2022-03-12 09:21:04 Test Item Value Reference Range Interpretation Comments Ferritin (test code = 1418.54 ng/mL 5.00-275.00 H 2276-4) BRANDI (test code = BRANDI) Bird Raiser ID - HIEN M Lab Interpretation (test Abnormal code = 58807-5) [place] 640202-03-12 09:21:04 Test Item Value Reference Range Interpretation Comments Ferritin (test code = 1418.54 ng/mL 5.00-275.00 H 2276-4) BRANDI (test code = BRANDI) Bird Raiser ID - HIEN M Lab Interpretation (test Abnormal code = 31546-5) [facility]2022-03-12 09:21:04 Test Item Value Reference Range Interpretation Comments Ferritin (test code = 1418.54 ng/mL 5.00-275.00 H 2276-4) BRANDI (test code = BRANDI) Bird Raiser ID - HIEN Dennis Lab Interpretation (test Abnormal code = 73141-1) [facility] 09:21:04 Test Item Value Reference Range Interpretation Comments Ferritin (test code = 1418.54 ng/mL 5.00-275.00 H 2276-4) BRANDI (test code = BRANDI) Bird Raiser ID - HIEN Dennis Lab Interpretation (test Abnormal code = 45062-7) [facility]2022-03-12 09:21:04 Test Item Value Reference Range Interpretation Comments Ferritin (test code = 1418.54 ng/mL 5.00-275.00 H 2276-4) BRANDI (test code = BRANDI) Bird Raiser ID - HIEN Dennis Lab Interpretation (test Abnormal code = 85920-0) [facility] 09:21:04 Test Item Value Reference Range Interpretation Comments FERRITIN (BEAKER) (test code = 1418.54 ng/mL 5.00-275.00 H 361) Bird Raiser NORAH Acostaon, TIBC, % sat. (without ferritin)2021-06-13 09:01:39 Test Item Value Reference Range Interpretation Comments Iron (test code = 2498-4) 75.0 ug/dL 40.0-160.0 TIBC (test code = 2500-7) 145 ug/dL 250-450 L Iron % Saturation (test 52 % 20-55 code = 2502-3) BRANDI (test code = BRANDI) Bird Raiser NORAH Dennis Lab Interpretation (test Abnormal code = 72022-0) [facility], [facility], % sat. (without ferritin)2021-06-13 09:01:39 Test Item Value Reference Range Interpretation Comments Iron (test code = 2498-4) 75.0 ug/dL 40.0-160.0 TIBC (test code = 2500-7) 145 ug/dL 250-450 L Iron % Saturation (test 52 % 20-55 code = 2502-3) BRANDI (test code = BRANDI) Bird Raiser ID - HIEN Dennis Lab Interpretation (test Abnormal code = 48127-8) [facility] (without ferritin)2021-06-13 09:01:39 Test Item Value Reference Range Interpretation Comments Iron (test code = 2498-4) 75.0 ug/dL 40.0-160.0 TIBC (test code = 2500-7) 145 ug/dL 250-450 L Iron % Saturation (test 52 % 20-55 code = 2502-3) BRANDI (test code = BRANDI) Bird Raiser ID - HIEN M Lab Interpretation (test Abnormal code = 70736-7) [facility], TIBC, % sat. (without ferritin)2021-06-13 09:01:39 Test Item Value Reference Range Interpretation Comments Iron (test code = 2498-4) 75.0 ug/dL 40.0-160.0 TIBC (test code = 2500-7) 145 ug/dL 250-450 L Iron % Saturation (test 52 % 20-55 code = 2502-3) BRANDI (test code = BRANDI) Bird Raiser ID - HIEN M Lab Interpretation (test Abnormal code = 28356-7) [facility], TIBC, % sat. (without ferritin)2021-06-13 09:01:39 Test Item Value Reference Range Interpretation Comments Iron (test code = 2498-4) 75.0 ug/dL 40.0-160.0 TIBC (test code = 2500-7) 145 ug/dL 250-450 L Iron % Saturation (test 52 % 20-55 code = 2502-3) BRANDI (test code = BRANDI) Bird Raiser ID - HIEN M Lab Interpretation (test Abnormal code = 04956-1) [facility], TIBC, % sat. (without ferritin)2021-06-13 09:01:39 Test Item Value Reference Range Interpretation Comments Iron (test code = 2498-4) 75.0 ug/dL 40.0-160.0 TIBC (test code = 2500-7) 145 ug/dL 250-450 L Iron % Saturation (test 52 % 20-55 code = 2502-3) BRANDI (test code = BRANDI) Bird Raiser ID - HIEN M Lab Interpretation (test Abnormal code = 19692-5) [facility], TIBC, % sat. (without ferritin)2021-06-13 09:01:39 Test Item Value Reference Range Interpretation Comments Iron (test code = 2498-4) 75.0 ug/dL 40.0-160.0 TIBC (test code = 2500-7) 145 ug/dL 250-450 L Iron % Saturation (test 52 % 20-55 code = 2502-3) BRANDI (test code = BRANDI) Bird Raiser ID - HIEN M Lab Interpretation (test Abnormal code = 45504-8) [facility], TIBC, % sat. (without ferritin)2021-06-13 09:01:39 Test Item Value Reference Range Interpretation Comments Iron (test code = 2498-4) 75.0 ug/dL 40.0-160.0 TIBC (test code = 2500-7) 145 ug/dL 250-450 L Iron % Saturation (test 52 % 20-55 code = 2502-3) BRANDI (test code = BRANDI) Bird Raiser ID - HIEN M Lab Interpretation (test Abnormal code = 92923-6) [facility], TIBC, % sat. (without ferritin)2021-06-13 09:01:39 Test Item Value Reference Range Interpretation Comments Iron (test code = 2498-4) 75.0 ug/dL 40.0-160.0 TIBC (test code = 2500-7) 145 ug/dL 250-450 L Iron % Saturation (test 52 % 20-55 code = 2502-3) BRANDI (test code = BRANDI) Bird Raiser ID - HIEN M Lab Interpretation (test Abnormal code = 23731-4) [facility], TIBC, % sat. (without ferritin)2021-06-13 09:01:39 Test Item Value Reference Range Interpretation Comments Iron (test code = 2498-4) 75.0 ug/dL 40.0-160.0 TIBC (test code = 2500-7) 145 ug/dL 250-450 L Iron % Saturation (test 52 % 20-55 code = 2502-3) BRANDI (test code = BRANDI) Bird Raiser ID - HIEN M Lab Interpretation (test Abnormal code = 64203-4) [facility], TIBC, % sat. (without ferritin)2021-06-13 09:01:39 Test Item Value Reference Range Interpretation Comments Iron (test code = 2498-4) 75.0 ug/dL 40.0-160.0 TIBC (test code = 2500-7) 145 ug/dL 250-450 L Iron % Saturation (test 52 % 20-55 code = 2502-3) BRANDI (test code = BRANDI) Bird Raiser ID - HIEN M Lab Interpretation (test Abnormal code = 95791-7) [facility], TIBC, % sat. (without ferritin)2021-06-13 09:01:39 Test Item Value Reference Range Interpretation Comments Iron (test code = 2498-4) 75.0 ug/dL 40.0-160.0 TIBC (test code = 2500-7) 145 ug/dL 250-450 L Iron % Saturation (test 52 % 20-55 code = 2502-3) BRANDI (test code = BRANDI) Bird Raiser ID - HIEN M Lab Interpretation (test Abnormal code = 38268-4) [facility], TIBC, % sat. (without ferritin)2021-06-13 09:01:39 Test Item Value Reference Range Interpretation Comments Iron (test code = 2498-4) 75.0 ug/dL 40.0-160.0 TIBC (test code = 2500-7) 145 ug/dL 250-450 L Iron % Saturation (test 52 % 20-55 code = 2502-3) BRANDI (test code = BRANDI) Bird Raiser ID - HIEN M Lab Interpretation (test Abnormal code = 43516-3) [facility], TIBC, % sat. (without ferritin)2021-06-13 09:01:39 Test Item Value Reference Range Interpretation Comments Iron (test code = 2498-4) 75.0 ug/dL 40.0-160.0 TIBC (test code = 2500-7) 145 ug/dL 250-450 L Iron % Saturation (test 52 % 20-55 code = 2502-3) BRANDI (test code = BRANDI) Bird Raiser ID - HIEN M Lab Interpretation (test Abnormal code = 78292-2) [facility], TIBC, % sat. (without ferritin)2021-06-13 09:01:39 Test Item Value Reference Range Interpretation Comments Iron (test code = 2498-4) 75.0 ug/dL 40.0-160.0 TIBC (test code = 2500-7) 145 ug/dL 250-450 L Iron % Saturation (test 52 % 20-55 code = 2502-3) BRANDI (test code = BRANDI) Bird Raiser ID - HIEN M Lab Interpretation (test Abnormal code = 29938-5) [facility], TIBC, % sat. (without ferritin)2021-06-13 09:01:39 Test Item Value Reference Range Interpretation Comments Iron (test code = 2498-4) 75.0 ug/dL 40.0-160.0 TIBC (test code = 2500-7) 145 ug/dL 250-450 L Iron % Saturation (test 52 % 20-55 code = 2502-3) BRANDI (test code = BRANDI) Bird Raiser ID - HIEN M Lab Interpretation (test Abnormal code = 98970-1) [facility], TIBC, % sat. (without ferritin)2021-06-13 09:01:39 Test Item Value Reference Range Interpretation Comments Iron (test code = 2498-4) 75.0 ug/dL 40.0-160.0 TIBC (test code = 2500-7) 145 ug/dL 250-450 L Iron % Saturation (test 52 % 20-55 code = 2502-3) BRANDI (test code = BRANDI) Bird Raiser ID - HIEN M Lab Interpretation (test Abnormal code = 98515-8) [facility], TIBC, % SAT. (WITHOUT FERRITIN)2021-06-13 09:01:39 Test Item Value Reference Range Interpretation Comments IRON (BEAKER) (test code = 547) 75.0 ug/dL 40.0-160.0 TOTAL IRON BINDING CAPACITY 145 ug/dL 250-450 L (BEAKER) (test code = 769) IRON % SATURATION (2) (BEAKER) 52 % 20-55 (test code = 2590) Bird Raiser ID - HIEN MPOCT-GLUCOSE [id number] 08:51:07 Test Item Value Reference Range Interpretation Comments POC-GLUCOSE METER 106 mg/dL 70-110 : TESTED A T [facility] (BEAKER) (test code = [facility] [place], 1538) 98184: Bird Raiser/Techni kelle ID = [id number] for ANTELMO HOLGUIN PADMINI BASIC METABOLIC [id number] 04:21:54 Test Item Value Reference Range Interpretation [...] S NOT APPLICABLE FOR DIALYSIS PATIEN TS. Bird Raiser ID - HIEN [id number] 04:17:34 Test Item Value Reference Range Interpretation Comments MAGNESIUM (BEAKER) (test code = 2.0 mg/dL 1.6-2.6 627) Bird Raiser ID - HIEN FAOCQBFGKTO5489-91-36 04:17:34 Test Item Value Reference Range Interpretation Comments PHOSPHORUS (BEAKER) (test code = 3.1 mg/dL 2.3-4.7 604) Bird Raiser ID - HIEN MCBC W/PLT COUNT & AUTO [id number] 03:49:10 Test Item Value Reference Range Interpretation [...] PERCENT (BEAKER) (test code = 2801) SARS-COV2/RT-PCR ([facility])2021-06-13 02:28:08 Test Item Value Reference Range Interpretation Comments SARS-COV2/RT-PCR (test code = Negative Negative 7255584) Negative result for this test determines that [...] 564(g) of the Act.Testing was performed using [employer] SARS-CoV-2 assay.Fact Sheet for Healthcare Providers:https://www.Knip.Skyepack/ct/RT SARS-CoV-2 HCP Fact Sheet 51- 708757.pdfFact Sheet for Healthcare Patients:https://www.Knip.brown/ct/RT SARS-CoV-2 Patient Fact Sheet EN 51-343509C3.pdfPOCT-GLUCOSE [id number] 02:01:02 Test Item Value Reference Range Interpretation Comments POC-GLUCOSE METER 98 mg/dL 70-110 : TESTED A T [facility] 6720 (Pediatric BioscienceAKER) (test code = [facility]) 31517: Bird Raiser/Techni kelle ID = [id number] for SREEKANTH ROSS POCT-GLUCOSE [id number] 02:00:06 Test Item Value Reference Range Interpretation Comments POC-GLUCOSE METER 151 mg/dL 70-110 H : TESTED A T [facility] 6720 (BEAKER) (test code = [facility], 1538) 05681: Bird Raiser/Techni kelle ID = [id number] for LL OYD, TIKEYA BLOOD [id number] 23:01:20 Test Item Value Reference Range Interpretation Comments CULTURE (BEAKER) (test No growth in 5 days code = 1095) BLOOD [id number] 23:01:19 Test Item Value Reference Range Interpretation Comments CULTURE (BEAKER) (test No growth in 5 days code = 1095) CT, BRAIN, WITHOUT [id number] 08:55:00Unlisted Reason for Exam - Click Yes [...] MDReport Verified Date/Time: 06/12/2021 08:55:52 Reading Location: [address] Neuro Reading Room POCT-GLUCOSE [id number] 07:42:49 Test Item Value Reference Range Interpretation Comments POC-GLUCOSE METER 113 mg/dL 70-110 H : TESTED A T [facility] 6720 (BEAKER) (test code = [facility], 1538) 27753: Bird Raiser/Techni kelle ID = [id number] for Sheryl Enciso POCT-GLUCOSE [id number] 07:42:05 Test Item Value Reference Range Interpretation Comments POC-GLUCOSE METER 131 mg/dL 70-110 H : TESTED A T [facility] 6720 (BEAKER) (test code = [facility], 1538) 67157: Bird Raiser/Techni kelle ID = [id number] for JI MONTAÑO POCT-GLUCOSE [id number] 07:32:16 Test Item Value Reference Range Interpretation Comments POC-GLUCOSE METER 127 mg/dL 70-110 H : TESTED A T [facility] 6720 ([facility]) (test code = [facility], 1538) 79318: Bird Raiser/Techni kelle ID = [id number] for MIMI GURINDER PEREZ CT, CTANGIO [id number] 03:03:00Reason for exam:->Symptoms onset less than 6 [...] the film. IMPRESSION: No evidence of a [place] proximal branch vessel occlusion or [...] and interstitial pulmonary edema. Signed: Nikole Baron [facility] Verified Date/Time: 06/12/2021 03:03:56 CT, CAROTID, [id number] 03:03:00Reason for exam:- >Symptoms onset less than 6 hours and NIHSS 6 or greater [facility] : 1955 Sex: FFINAL REPORT [...] the film. IMPRESSION: No evidence of a [place] proximal branch vessel occlusion or [...] Nikole Baron Verified Date/Time: 06/12/2021 03:03:56 PROTHROMBIN TIME/[id number] 01:46:16 Test Item Value Reference Range Interpretation Comments PROTIME (BEAKER) 15.0 seconds 11.9-14.2 H (test code = 759) INR (BEAKER) (test 1.20 See_Comment [Automat ed message] code = 370) The system [employer] generated this result transmitted ref erence range: <=5.90. The reference range was not used to int erpret this result as normal/abnormal . RECOMMENDED COUMADIN/WARFARIN INR THERAPY RANGESSTANDARD DOSE: 2.0 - 3.0 Includes: PROPHYLAXIS for venous thrombosis, systemic embolization; TREATMENT for venous thrombosis and/or pulmonary embolus.HIGH RISK: Target INR is 2.5-3.5 for patients with mechanical heart valves.CBC W/PLT COUNT & AUTO [id number] 01:45:34 Test Item Value Reference Range Interpretation [...] (test code = 2801) CT, BRAIN, WITHOUT [id number] 01:38:00Unlisted Reason for Exam - Click Yes and Enter Reason Below->No [facility] CENTER[facility]: [facility]AK MER[facility]LL : 1955 [...] Date/Time: 06/12/2021 01:38:35 High Sensitivity Troponin I ([facility]/Jin Only)2021-06-12 01:35:31 Test Item Value Reference Range Interpretation Comments Troponin I HS (test 231 pg/ml See_Comment H [Automa levi code = 29956-3) message] The system which generated this result transmitted reference range : <=17. The reference range was not used to interpret this result as normal/abnormal . BRANDI (test code = Bird Raiser ID - BRANDI) DBThe DELIVERY AND MAIL SORTER STAT High Sensitivity Troponin-I results should be used in conjunction with other diagnostic information such as ECG, clinical observations and information, and patient symptoms to aid in the diagnosis of [facility]. Lab Interpretation Abnormal (test code = 89184-2) [facility] 2021-06-12 01:35:31 Test Item Value Reference Range Interpretation Comments Troponin I HS (test 231 pg/ml See_Comment H [Automa levi code = 39499-1) message] The system which generated this result transmitted reference range : <=17. The reference range was not used to interpret this result as normal/abnormal . BRANDI (test code = Bird Raiser ID - BRANDI) DBThe DELIVERY AND MAIL SORTER STAT High Sensitivity Troponin-I results should be used in conjunction with other diagnostic information such as ECG, clinical observations and information, and patient symptoms to aid in the diagnosis of [facility]. Lab Interpretation Abnormal (test code = 89260-2) [facility] 2021-06-12 01:35:31 Test Item Value Reference Range Interpretation Comments Troponin I HS (test 231 pg/ml See_Comment H [Automa levi code = 65035-3) message] The system which generated this result transmitted reference range : <=17. The reference range was not used to interpret this result as normal/abnormal . BRANDI (test code = Bird Raiser ID - BRANDI) DBThe DELIVERY AND MAIL SORTER STAT High Sensitivity Troponin-I results should be used in conjunction with other diagnostic information such as ECG, clinical observations and information, and patient symptoms to aid in the diagnosis of [facility]. Lab Interpretation Abnormal (test code = 01060-2) [facility] ([facility]Jin Only[facility] 2021-06-12 01:35:31 Test Item Value Reference Range Interpretation Comments Troponin I HS (test 231 pg/ml See_Comment H [Automa levi code = 18229-5) message] The system which generated this result transmitted reference range : <=17. The reference range was not used to interpret this result as normal/abnormal . BRANDI (test code = Bird Raiser ID - BRANDI) DBThe DELIVERY AND MAIL SORTER STAT High Sensitivity Troponin-I results should be used in conjunction with other diagnostic information such as ECG, clinical observations and information, and patient symptoms to aid in the diagnosis of [facility]. Lab Interpretation Abnormal (test code = 99654-1) [facility] ([facility]in Only[facility] 2021-06-12 01:35:31 Test Item Value Reference Range Interpretation Comments Troponin I HS (test 231 pg/ml See_Comment H [Automa levi code = 31295-6) message] The system which generated this result transmitted reference range : <=17. The reference range was not used to interpret this result as normal/abnormal . BRANDI (test code = Bird Raiser ID - BRANDI) DBThe DELIVERY AND MAIL SORTER STAT High Sensitivity Troponin-I results should be used in conjunction with other diagnostic information such as ECG, clinical observations and information, and patient symptoms to aid in the diagnosis of [facility]. Lab Interpretation Abnormal (test code = 44332-6) [facility]in Only[facility] 2021-06-12 01:35:31 Test Item Value Reference Range Interpretation Comments Troponin I HS (test 231 pg/ml See_Comment H [Automa levi code = 11080-3) message] The system which generated this result transmitted reference range : <=17. The reference range was not used to interpret this result as normal/abnormal . BRANDI (test code = Bird Raiser ID - BRANDI) DBThe DELIVERY AND MAIL SORTER STAT High Sensitivity Troponin-I results should be used in conjunction with other diagnostic information such as ECG, clinical observations and information, and patient symptoms to aid in the diagnosis of [facility]. Lab Interpretation Abnormal (test code = 32549-9) [facility] Troponin I ([facility]in Only) 2021-06-12 01:35:31 Test Item Value Reference Range Interpretation Comments Troponin I HS (test 231 pg/ml See_Comment H [Automa levi code = 50933-6) message] The system which generated this result transmitted reference range : <=17. The reference range was not used to interpret this result as normal/abnormal . BRANDI (test code = Bird Raiser ID - BRANDI) DBThe DELIVERY AND MAIL SORTER STAT High Sensitivity Troponin-I results should be used in conjunction with other diagnostic information such as ECG, clinical observations and information, and patient symptoms to aid in the diagnosis of [facility]. Lab Interpretation Abnormal (test code = 36336-7) [facility] 2021-06-12 01:35:31 Test Item Value Reference Range Interpretation Comments Troponin I HS (test 231 pg/ml See_Comment H [Automa levi code = 73369-2) message] The system which generated this result transmitted reference range : <=17. The reference range was not used to interpret this result as normal/abnormal . BRANDI (test code = Bird Raiser ID - BRANDI) DBThe DELIVERY AND MAIL SORTER STAT High Sensitivity Troponin-I results should be used in conjunction with other diagnostic information such as ECG, clinical observations and information, and patient symptoms to aid in the diagnosis of [facility]. Lab Interpretation Abnormal (test code = 03159-4) [facility] ([facility]in Only) 2021-06-12 01:35:31 Test Item Value Reference Range Interpretation Comments Troponin I HS (test 231 pg/ml See_Comment H [Automa levi code = 53682-8) message] The system which generated this result transmitted reference range : <=17. The reference range was not used to interpret this result as normal/abnormal . BRANDI (test code = Bird Raiser ID - BRANDI) DBThe DELIVERY AND MAIL SORTER STAT High Sensitivity Troponin-I results should be used in conjunction with other diagnostic information such as ECG, clinical observations and information, and patient symptoms to aid in the diagnosis of [facility]. Lab Interpretation Abnormal (test code = 27657-9) [facility] ([facility] Only[facility] 2021-06-12 01:35:31 Test Item Value Reference Range Interpretation Comments Troponin I HS (test 231 pg/ml See_Comment H [Automa levi code = 20751-9) message] The system which generated this result transmitted reference range : <=17. The reference range was not used to interpret this result as normal/abnormal . BRANDI (test code = Bird Raiser ID - BRANDI) DBThe DELIVERY AND MAIL SORTER STAT High Sensitivity Troponin-I results should be used in conjunction with other diagnostic information such as ECG, clinical observations and information, and patient symptoms to aid in the diagnosis of [facility]. Lab Interpretation Abnormal (test code = 44581-3) [facility] Only[facility] 2021-06-12 01:35:31 Test Item Value Reference Range Interpretation Comments Troponin I HS (test 231 pg/ml See_Comment H [Automa levi code = 48491-0) message] The system which generated this result transmitted reference range : <=17. The reference range was not used to interpret this result as normal/abnormal . BRANDI (test code = Bird Raiser ID - BRANDI) DBThe DELIVERY AND MAIL SORTER STAT High Sensitivity Troponin-I results should be used in conjunction with other diagnostic information such as ECG, clinical observations and information, and patient symptoms to aid in the diagnosis of [facility]. Lab Interpretation Abnormal (test code = 97399-3) [facility] Only[facility] 2021-06-12 01:35:31 Test Item Value Reference Range Interpretation Comments Troponin I HS (test 231 pg/ml See_Comment H [Automa levi code = 58417-4) message] The system which generated this result transmitted reference range : <=17. The reference range was not used to interpret this result as normal/abnormal . BRANDI (test code = Bird Raiser ID - BRANDI) DBThe DELIVERY AND MAIL SORTER STAT High Sensitivity Troponin-I results should be used in conjunction with other diagnostic information such as ECG, clinical observations and information, and patient symptoms to aid in the diagnosis of [facility]. Lab Interpretation Abnormal (test code = 06942-4) [facility] Only[facility] 2021-06-12 01:35:31 Test Item Value Reference Range Interpretation Comments Troponin I HS (test 231 pg/ml See_Comment H [Automa levi code = 09978-0) message] The system which generated this result transmitted reference range : <=17. The reference range was not used to interpret this result as normal/abnormal . BRANDI (test code = Bird Raiser ID - BRANDI) DBThe DELIVERY AND MAIL SORTER STAT High Sensitivity Troponin-I results should be used in conjunction with other diagnostic information such as ECG, clinical observations and information, and patient symptoms to aid in the diagnosis of [facility]. Lab Interpretation Abnormal (test code = 58541-6) [facility] 2021-06-12 01:35:31 Test Item Value Reference Range Interpretation Comments Troponin I HS (test 231 pg/ml See_Comment H [Automa levi code = 90598-5) message] The system which generated this result transmitted reference range : <=17. The reference range was not used to interpret this result as normal/abnormal . BRANDI (test code = Bird Raiser ID - BRANDI) DBThe DELIVERY AND MAIL SORTER STAT High Sensitivity Troponin-I results should be used in conjunction with other diagnostic information such as ECG, clinical observations and information, and patient symptoms to aid in the diagnosis of [facility]. Lab Interpretation Abnormal (test code = 13301-8) [facility] 2021-06-12 01:35:31 Test Item Value Reference Range Interpretation Comments Troponin I HS (test 231 pg/ml See_Comment H [Automa levi code = 11408-7) message] The system which generated this result transmitted reference range : <=17. The reference range was not used to interpret this result as normal/abnormal . BRANDI (test code = Bird Raiser ID - BRANDI) DBThe DELIVERY AND MAIL SORTER STAT High Sensitivity Troponin-I results should be used in conjunction with other diagnostic information such as ECG, clinical observations and information, and patient symptoms to aid in the diagnosis of [facility]. Lab Interpretation Abnormal (test code = 06509-9) [facility] 2021-06-12 01:35:31 Test Item Value Reference Range Interpretation Comments Troponin I HS (test 231 pg/ml See_Comment H [Automa levi code = 46971-4) message] The system which generated this result transmitted reference range : <=17. The reference range was not used to interpret this result as normal/abnormal . BRANDI (test code = Bird Raiser ID - BRANDI) DBThe DELIVERY AND MAIL SORTER STAT High Sensitivity Troponin-I results should be used in conjunction with other diagnostic information such as ECG, clinical observations and information, and patient symptoms to aid in the diagnosis of [facility]. Lab Interpretation Abnormal (test code = 16763-6) [facility] ([facility] Only[facility] 2021-06-12 01:35:31 Test Item Value Reference Range Interpretation Comments Troponin I HS (test code 231 pg/ml <=17 H = 30699-7) BRANDI (test code = BRANDI) Bird Raiser ID - DBThe DELIVERY AND MAIL SORTER STAT High Sensitivity Troponin-I results should be used in conjunction with other diagnostic information such as ECG, clinical observations and information, and patient symptoms to aid in the diagnosis of [facility]. Lab Interpretation (test Abnormal code = 86881-8) [facility]IN [id number] 01:35:31 Test Item Value Reference Range Interpretation Comments HIGH SENSITIVITY 231 pg/ml See_Comment H [Automated message] TROPONIN I (test code The sy stem which = 1389035) generated this result transmitted ref erence range: <=17. Th e reference range was not used to int erpret this result as normal/abnormal . Bird Raiser ID - DBThe DELIVERY AND MAIL SORTER STAT High Sensitivity Troponin-I results should be used in conjunctionwith other diagnostic information such as ECG, clinical observations and information, and patient symptoms to aid in the diagnosis of [facility].BASIC METABOLIC [id number] 01:29:11 Test Item Value Reference Range Interpretation [...] S NOT APPLICABLE FOR DIALYSIS PATIEN TS. Bird Raiser ID - [id number] 01:28:34 Test Item Value Reference Range Interpretation Comments PHOSPHORUS (BEAKER) 4.6 mg/dL 2.3-4.7 Specimen slightly (test code = 604) hemolyzed Bird Raiser ID - [id number] 01:28:33 Test Item Value Reference Range Interpretation Comments MAGNESIUM (BEAKER) 2.2 mg/dL 1.6-2.6 Specimen slightly (test code = 627) hemolyzed Bird Raiser ID - DBLactic acid, [id number] 01:26:32 Test Item Value Reference Range Interpretation Comments Lactate, Venous (test code = 0.87 mmol/L 0.50-2.20 2872) BRANDI (test code = BRANDI) Bird Raiser ID - DB Lab Interpretation (test Normal code = 01551-2) [facility], [id number] 01:26:32 Test Item Value Reference Range Interpretation Comments Lactate, Venous (test code = 0.87 mmol/L 0.50-2.20 2872) BRANDI (test code = BRANDI) Bird Raiser ID - DB Lab Interpretation (test Normal code = 56340-2) [facility], [id number] 01:26:32 Test Item Value Reference Range Interpretation Comments Lactate, Venous (test code = 0.87 mmol/L 0.50-2.20 2872) BRANDI (test code = BRANDI) Bird Raiser ID - DB Lab Interpretation (test Normal code = 10859-8) [facility], [id number] 01:26:32 Test Item Value Reference Range Interpretation Comments Lactate, Venous (test code = 0.87 mmol/L 0.50-2.20 2872) BRANDI (test code = BRANDI) Bird Raiser ID - DB Lab Interpretation (test Normal code = 86909-9) [facility], [id number] 01:26:32 Test Item Value Reference Range Interpretation Comments Lactate, Venous (test code = 0.87 mmol/L 0.50-2.20 2872) BRANDI (test code = BRANDI) Bird Raiser ID - DB Lab Interpretation (test Normal code = 38733-1) [facility], [id number] 01:26:32 Test Item Value Reference Range Interpretation Comments Lactate, Venous (test code = 0.87 mmol/L 0.50-2.20 2872) BRANDI (test code = BRANDI) Bird Raiser ID - DB Lab Interpretation (test Normal code = 58463-6) [facility] [id number] 01:26:32 Test Item Value Reference Range Interpretation Comments Lactate, Venous (test code = 0.87 mmol/L 0.50-2.20 2872) BRANDI (test code = BRANDI) Bird Raiser ID - DB Lab Interpretation (test Normal code = 53879-3) [facility], [id number] 01:26:32 Test Item Value Reference Range Interpretation Comments Lactate, Venous (test code = 0.87 mmol/L 0.50-2.20 2872) BRANDI (test code = BRANDI) Bird Raiser ID - DB Lab Interpretation (test Normal code = 85263-7) [facility], [id number] 01:26:32 Test Item Value Reference Range Interpretation Comments Lactate, Venous (test code = 0.87 mmol/L 0.50-2.20 2872) BRANDI (test code = BRANDI) Bird Raiser ID - DB Lab Interpretation (test Normal code = 92764-0) [facility], [id number] 01:26:32 Test Item Value Reference Range Interpretation Comments Lactate, Venous (test code = 0.87 mmol/L 0.50-2.20 2872) BRANDI (test code = BRANDI) Bird Raiser ID - DB Lab Interpretation (test Normal code = 04967-4) [facility], [id number] 01:26:32 Test Item Value Reference Range Interpretation Comments Lactate, Venous (test code = 0.87 mmol/L 0.50-2.20 2872) BRANDI (test code = BRANDI) Bird Raiser ID - DB Lab Interpretation (test Normal code = 44461-5) [facility], [id number] 01:26:32 Test Item Value Reference Range Interpretation Comments Lactate, Venous (test code = 0.87 mmol/L 0.50-2.20 2872) BRANDI (test code = BRANDI) Bird Raiser ID - DB Lab Interpretation (test Normal code = 32613-6) [facility] [id number] 01:26:32 Test Item Value Reference Range Interpretation Comments Lactate, Venous (test code = 0.87 mmol/L 0.50-2.20 2872) BRANDI (test code = BRANDI) Bird Raiser ID - DB Lab Interpretation (test Normal code = 86653-1) [facility], [id number] 01:26:32 Test Item Value Reference Range Interpretation Comments Lactate, Venous (test code = 0.87 mmol/L 0.50-2.20 2872) BRANDI (test code = BRANDI) Bird Raiser ID - DB Lab Interpretation (test Normal code = 35901-4) [facility] acid, [id number] 01:26:32 Test Item Value Reference Range Interpretation Comments Lactate, Venous (test code = 0.87 mmol/L 0.50-2.20 2872) BRANDI (test code = BRANDI) Bird Raiser ID - DB Lab Interpretation (test Normal code = 60615-0) [facility], [id number] 01:26:32 Test Item Value Reference Range Interpretation Comments Lactate, Venous (test code = 0.87 mmol/L 0.50-2.20 2872) BRANDI (test code = BRANDI) Bird Raiser ID - DB Lab Interpretation (test Normal code = 53213-9) [facility], [id number] 01:26:32 Test Item Value Reference Range Interpretation Comments Lactate, Venous (test code = 0.87 mmol/L 0.50-2.20 2872) BRANDI (test code = BRANDI) Bird Raiser ID - DB Lab Interpretation (test Normal code = 49421-4) [facility] [id number] 01:26:32 Test Item Value Reference Range Interpretation Comments LACTATE BLOOD VENOUS (2) (BEAKER) 0.87 mmol/L 0.50-2.20 (test code = 2872) Bird Raiser ID - DBPOCT-GLUCOSE [id number] 16:24:28 Test Item Value Reference Range Interpretation Comments POC-GLUCOSE METER 244 mg/dL 70-110 H : TESTED A T [facility] 6720 (BEAKER) (test code = [facility], 1538) [address]: Bird Raiser/Techni kelle ID = [id number] for Re yes, Maranda POCT-GLUCOSE [id number] 11:29:05 Test Item Value Reference Range Interpretation Comments POC-GLUCOSE METER 168 mg/dL 70-110 H : TESTED A T [facility] 6720 (BEAKER) (test code = [facility], 1538) 16957: Bird Raiser/Techni kelle ID = [id number] for Re yes, Maranda POCT-GLUCOSE [id number] 06:45:50 Test Item Value Reference Range Interpretation Comments POC-GLUCOSE METER 132 mg/dL 70-110 H : TESTED A T [facility] 6720 (BEAKER) (test code = [facility], 1538) [address]: Bird Raiser/Techni kelle ID = [id number] for UG YAKELIN GHADA BASIC METABOLIC [id number] 05:08:08 Test Item Value Reference Range Interpretation [...] S NOT APPLICABLE FOR DIALYSIS PATIEN TS. Bird Raiser ID - HIEN [id number] 04:56:38 Test Item Value Reference Range Interpretation Comments MAGNESIUM (BEAKER) (test code = 1.9 mg/dL 1.6-2.6 627) Bird Raiser ID - HIEN [id number] 04:56:38 Test Item Value Reference Range Interpretation Comments PHOSPHORUS (BEAKER) (test code = 3.7 mg/dL 2.3-4.7 604) Bird Raiser ID - HIEN MCBC W/PLT COUNT & AUTO [id number] 04:33:28 Test Item Value Reference Range Interpretation [...] = 2801) CBC W/PLT COUNT & AUTO [id number] 22:57:11 Test Item Value Reference Range Interpretation [...] = 2801) RAD, CHEST, 1 VIEW, NON [id number] 22:44:00Reason for exam:- >dyspneaShould this be performed [...] signed by: BRAXTON QUINTERO M.D. on 0:44 [id number] 22:43:07 Test Item Value Reference Range Interpretation Comments POC-Glucose (test code = 118 mg/dL 70-110 H : T ESTED AT [facility] 1855) [address] [place] [address], [facility] 30: Bird Raiser/Techni kelle ID = [id number] for MARFIL, JOSE ARMANDO Lab Interpretation (test Abnormal code = 92650-8) [facility]2022-03-09 22:43:07 Test Item Value Reference Range Interpretation Comments POC-Glucose (test code = 118 mg/dL 70-110 H : [facility] [address] [place] [address], 770 30: Bird Raiser/Techni kelle ID = [id number] for MARFIL, JOSE ARMANDO Lab Interpretation (test Abnormal code = 73736-6) [facility]2022-03-09 22:43:07 Test Item Value Reference Range Interpretation Comments POC-Glucose (test code = 118 mg/dL 70-110 H : T [facility] AT [facility] 1855) [address] [place] [address], [facility] 30: Bird Raiser/Techni kelle ID = [id number] for MARFIL, JOSE ARMANDO Lab Interpretation (test Abnormal code = 51599-3) [id number]07 Test Item Value Reference Range Interpretation Comments POC-Glucose (test code = 118 mg/dL 70-110 H : T EST[facility] AT [facility] 1855) [address] [place] [address], 770 30: Bird Raiser/Techni kelle ID = [id number] for MARFIL, JOSE ARMANDO Lab Interpretation (test Abnormal code = 25366-4) [id number] 22:43:07 Test Item Value Reference Range Interpretation Comments POC-Glucose (test code = 118 mg/dL 70-110 H : T EST[facility] AT [facility] 1855) [address] [place] [address], 770 30: Bird Raiser/Techni kelle ID = [id number] for MARFIL, JOSE ARMANDO Lab Interpretation (test Abnormal code = 68136-6) [facility]2022-03-09 22:43:07 Test Item Value Reference Range Interpretation Comments POC-Glucose (test code = 118 mg/dL 70-110 H : T ESTED AT [facility] 1855) [address] [place] [address], 770 30: Bird Raiser/Techni kelle ID = [id number] for MARFIL, JOSE ARMANDO Lab Interpretation (test Abnormal code = 18303-8) [facility]2022-03-09 22:43:07 Test Item Value Reference Range Interpretation Comments POC-Glucose (test code = 118 mg/dL 70-110 H : T ESTED AT [facility] 1855) [address] [place] [address], 770 30: Bird Raiser/Techni kelle ID = [id number] for MARFIL, JOSE ARMANDO Lab Interpretation (test Abnormal code = 86431-2) [facility]2022-03-09 22:43:07 Test Item Value Reference Range Interpretation Comments POC-Glucose (test code = 118 mg/dL 70-110 H : T EST[facility] AT [facility] 1855) [address] [place] [address], 770 30: Bird Raiser/Techni kelle ID = [id number] for MARFIL, JOSE ARMANDO Lab Interpretation (test Abnormal code = 95158-4) [facility]2022-03-09 22:43:07 Test Item Value Reference Range Interpretation Comments POC-Glucose (test code = 118 mg/dL 70-110 H : T ESTED AT [facility] 1855) [address] [place] [address], 770 30: Bird Raiser/Techni kelle ID = [id number] for MARFIL, JOSE ARMANDO Lab Interpretation (test Abnormal code = 76307-8) [facility]2022-03-09 22:43:07 Test Item Value Reference Range Interpretation Comments POC-Glucose (test code = 118 mg/dL 70-110 H : T ESTED AT [facility] 1855) [address] [place] [address], 770 30: Bird Raiser/Techni kelle ID = [id number] for MARFIL, JOSE ARMANDO Lab Interpretation (test Abnormal code = 28892-1) [facility]UNQLEO5262-[facility]-28 22:43:07 Test Item Value Reference Range Interpretation Comments POC-Glucose (test code = 118 mg/dL 70-110 H : T ESTED AT [facility] 1855) [address] [place] [address], 770 30: Bird Raiser/Techni kelle ID = [id number] for MARFIL, JOSE ARMANDO Lab Interpretation (test Abnormal code = 19024-5) [facility]2022-03-09 22:43:07 Test Item Value Reference Range Interpretation Comments POC-Glucose (test code = 118 mg/dL 70-110 H : T ESTED AT [facility] 1855) [address] [place] [address], 770 30: Bird Raiser/Techni kelle ID = [id number] for MARFIL, JOSE ARMANDO Lab Interpretation (test Abnormal code = 55875-8) [facility]2022-03-09 22:43:07 Test Item Value Reference Range Interpretation Comments POC-Glucose (test code = 118 mg/dL 70-110 H : T ESTED AT [facility] 1855) [address] [place] [address], 770 30: Bird Raiser/Techni kelle ID = [id number] for MARFIL, JOSE ARMANDO Lab Interpretation (test Abnormal code = 79910-6) [facility]2022-03-09 22:43:07 Test Item Value Reference Range Interpretation Comments POC-Glucose (test code = 118 mg/dL 70-110 H : T [facility] AT [facility] 1855) [address] [place] [address], 770 30: Bird Raiser/Techni kelle ID = [id number] for MARFIL, JOSE ARMANDO Lab Interpretation (test Abnormal code = 59867-4) [facility]2022-03-09 22:43:07 Test Item Value Reference Range Interpretation Comments POC-Glucose (test code = 118 mg/dL 70-110 H : T ESTED AT [facility] 1855) [address] [place] [address], 770 30: Bird Raiser/Techni kelle ID = [id number] for MARFIL, JOSE ARMANDO Lab Interpretation (test Abnormal code = 77681-8) [facility]2022-03-09 22:43:07 Test Item Value Reference Range Interpretation Comments POC-Glucose (test code = 118 mg/dL 70-110 H : T ESTED AT [facility] 1855) [facility], 770 30: Bird Raiser/Techni kelle ID = [id number] for MARFIL, JOSE ARMANDO Lab Interpretation (test Abnormal code = 93964-5) [facility]-[id number] 22:43:07 Test Item Value Reference Range Interpretation Comments POC-Glucose (test code = 118 mg/dL 70-110 H : T ESTED AT [facility] 1855) [address] [place] [address], 770 30: Bird Raiser/Techni kelle ID = [id number] for MARFIL, JOSE ARMANDO Lab Interpretation (test Abnormal code = 92230-7) [facility]-[id number] 22:43:07 Test Item Value Reference Range Interpretation Comments POC-GLUCOSE (BEAKER) 118 mg/dL 70-110 H : TESTE D AT [facility] 6720 (test code = 1855) [facility], [address]: Bird Raiser/Techni kelle ID = [id number] for MARF IL, JOSE ARMANDO XJFE-[id number] 22:43:06 Test Item Value Reference Range Interpretation Comments POC-Hemoglobin (test code 8.2 g/dL 12.0-15.0 L : TESTED AT [facility] = 1856) [address] [place] [address], 770 30: Bird Raiser/Techni kelle ID = [id number] for MARFIL, JOSE ARMANDO Lab Interpretation (test Abnormal code = 42539-2) [facility]ccmipDPZB-NEKONEOEEY6886-14-09 22:43:06 Test Item Value Reference Range Interpretation Comments POC-Hematocrit (test code 24 % 36-45 L : = 1857) Bird Raiser/Techni kelle ID = [id number] for MARFIL, JOSE ARMANDO Lab Interpretation (test Abnormal code = 64995-9) [facility] HospitalKbqbntERIE-DTIVLHVBJJ1023-34-09 22:43:06 Test Item Value Reference Range Interpretation Comments POC-Hemoglobin (test code 8.2 g/dL 12.0-15.0 L : TESTED AT [facility] = 1856) [address] [place] [address], 770 30: Bird Raiser/Techni kelle ID = [id number] for MARFIL, JOSE ARMANDO Lab Interpretation (test Abnormal code = 95884-5) [facility]-[id number] 22:43:06 Test Item Value Reference Range Interpretation Comments POC-Hematocrit (test code 24 % 36-45 L : = 1857) Bird Raiser/Techni kelle ID = [id number] for MARFIL, JOSE ARMANDO Lab Interpretation (test Abnormal code = 42971-4) [facility]-[id number] 22:43:06 Test Item Value Reference Range Interpretation Comments POC-Hemoglobin (test code 8.2 g/dL 12.0-15.0 L : [facility] [facility] [place] [address] [place] [address], 770 30: Bird Raiser/Techni kelle ID = [id number] for MARFIL, JOSE ARMANDO Lab Interpretation (test Abnormal code = 77339-7) [facility]-LOSMJMYCBT9593-76-35 22:43:06 Test Item Value Reference Range Interpretation Comments POC-Hematocrit (test code 24 % 36-45 L : = 1857) Bird Raiser/Techni kelle ID = [id number] for MARFIL, JOSE ARMANDO Lab Interpretation (test Abnormal code = 09314-9) [facility]-[id number] 22:43:06 Test Item Value Reference Range Interpretation Comments POC-Hemoglobin (test code 8.2 g/dL 12.0-15.0 L : TESTED AT [facility] = 1856) [address] [place] [address], 770 30: Bird Raiser/Techni kelle ID = [id number] for MARFIL, JOSE ARMANOD Lab Interpretation (test Abnormal code = 34134-2) [facility]-[id number] 22:43:06 Test Item Value Reference Range Interpretation Comments POC-Hematocrit (test code 24 % 36-45 L : = 1857) Bird Raiser/Techni kelle ID = [id number] for MARFIL, JOSE ARMANDO Lab Interpretation (test Abnormal code = 38494-8) [facility]-[id number] 22:43:06 Test Item Value Reference Range Interpretation Comments POC-Hemoglobin (test code 8.2 g/dL 12.0-15.0 L : [place] [facility] [place] [address] [place] [address], [address]: Bird Raiser/Techni kelle ID = [id number] for MARFIL, JOSE ARMANDO Lab Interpretation (test Abnormal code = 41237-4) [facility]-[id number] 22:43:06 Test Item Value Reference Range Interpretation Comments POC-Hematocrit (test code 24 % 36-45 L : = 1857) Bird Raiser/Techni kelle ID = [id number] for MARFIL, JOSE ARMANDO Lab Interpretation (test Abnormal code = 18588-9) [facility]-[id number] 22:43:06 Test Item Value Reference Range Interpretation Comments POC-Hemoglobin (test code 8.2 g/dL 12.0-15.0 L : TESTED AT [facility] = 1856) [address] [place] [address], [address]: Bird Raiser/Techni kelle ID = [id number] for MARFIL, JOSE ARMANDO Lab Interpretation (test Abnormal code = 05191-1) [facility]-[id number] 22:43:06 Test Item Value Reference Range Interpretation Comments POC-Hematocrit (test code 24 % 36-45 L : = 1857) Bird Raiser/Techni kelle ID = [id number] for MARFIL, JOSE ARMANDO Lab Interpretation (test Abnormal code = 97699-3) [facility]-[id number] 22:43:06 Test Item Value Reference Range Interpretation Comments POC-Hemoglobin (test code 8.2 g/dL 12.0-15.0 L : TESTED AT [facility] = 1856) [address] [place] [address], [address]: Bird Raiser/Techni kelle ID = [id number] for MARFIL, JOSE ARMANDO Lab Interpretation (test Abnormal code = 83672-0) [facility]-[id number] 22:43:06 Test Item Value Reference Range Interpretation Comments POC-Hematocrit (test code 24 % 36-45 L : = 1857) Bird Raiser/Techni kelle ID = [id number] for MARFIL, JOSE ARMANDO Lab Interpretation (test Abnormal code = 44168-9) [facility]-[id number] 22:43:06 Test Item Value Reference Range Interpretation Comments POC-Hemoglobin (test code 8.2 g/dL 12.0-15.0 L : TESTED AT [facility] = 1856) [address] [facility], [address] 30: Bird Raiser/Techni kelle ID = [id number] for MARFIL, JOSE ARMANDO Lab Interpretation (test Abnormal code = 21554-9) [facility]-[id number] 22:43:06 Test Item Value Reference Range Interpretation Comments POC-Hematocrit (test code 24 % 36-45 L : = 1857) Bird Raiser/Techni kelle ID = [id number] for MARFIL, JOSE ARMANDO Lab Interpretation (test Abnormal code = 70095-2) [facility]-[id number] 22:43:06 Test Item Value Reference Range Interpretation Comments POC-Hemoglobin (test code 8.2 g/dL 12.0-15.0 L : TESTED AT [facility] = 1856) [address] [place] [address], [address] 30: Bird Raiser/Techni kelle ID = [id number] for MARFIL, JOSE ARMANDO Lab Interpretation (test Abnormal code = 89935-5) [facility]-[id number] 22:43:06 Test Item Value Reference Range Interpretation Comments POC-Hematocrit (test code 24 % 36-45 L : = 1857) Bird Raiser/Techni kelle ID = [id number] for MARFIL, JOSE ARMANDO Lab Interpretation (test Abnormal code = 16530-0) [facility]-[id number] 22:43:06 Test Item Value Reference Range Interpretation Comments POC-Hemoglobin (test code 8.2 g/dL 12.0-15.0 L : TESTED AT [facility] = 1856) [address] [place] [address], [address] 30: Bird Raiser/Techni kelle ID = [id number] for MARFIL, JOSE ARMANDO Lab Interpretation (test Abnormal code = 78584-0) [facility]-[id number] 22:43:06 Test Item Value Reference Range Interpretation Comments POC-Hematocrit (test code 24 % 36-45 L : = 1857) Bird Raiser/Techni kelle ID = [id number] for MARFIL, JOSE ARMANDO Lab Interpretation (test Abnormal code = 87895-1) [facility]-[id number] 22:43:06 Test Item Value Reference Range Interpretation Comments POC-Hemoglobin (test code 8.2 g/dL 12.0-15.0 L : TESTED AT [facility] = 1856) [address] [facility], 770 30: Bird Raiser/Techni kelle ID = [id number] for MARFIL, JOSE ARMANDO Lab Interpretation (test Abnormal code = 27599-9) [facility]-[id number] 22:43:06 Test Item Value Reference Range Interpretation Comments POC-Hematocrit (test code 24 % 36-45 L : = 1857) Bird Raiser/Techni kelle ID = [id number] for MARFIL, JOSE ARMANDO Lab Interpretation (test Abnormal code = 29133-7) [facility]-[id number] 22:43:06 Test Item Value Reference Range Interpretation Comments POC-Hemoglobin (test code 8.2 g/dL 12.0-15.0 L : TESTED AT [facility] = 1856) [address] [place] [address], [address] 30: Bird Raiser/Techni kelle ID = [id number] for MARFIL, JOSE ARMANDO Lab Interpretation (test Abnormal code = 17929-5) [facility]-[id number] 22:43:06 Test Item Value Reference Range Interpretation Comments POC-Hematocrit (test code 24 % 36-45 L : = 1857) Bird Raiser/Techni kelle ID = [id number] for MARFIL, JOSE ARMANDO Lab Interpretation (test Abnormal code = 55122-1) [facility]-[id number] 22:43:06 Test Item Value Reference Range Interpretation Comments POC-Hemoglobin (test code 8.2 g/dL 12.0-15.0 L : TESTED AT [facility] = 1856) [address] [place] [address], [address] 30: Bird Raiser/Techni kelle ID = [id number] for MARFIL, JOSE ARMANDO Lab Interpretation (test Abnormal code = 19780-2) [facility]-[id number] 22:43:06 Test Item Value Reference Range Interpretation Comments POC-Hematocrit (test code 24 % 36-45 L : = 1857) Bird Raiser/Techni kelle ID = [id number] for MARFIL, JOSE ARMANDO Lab Interpretation (test Abnormal code = 68907-8) [facility]-[id number] 22:43:06 Test Item Value Reference Range Interpretation Comments POC-Hemoglobin (test code 8.2 g/dL 12.0-15.0 L : TESTED AT [facility] = 1856) [address] [place] [address], 7[address] 30: Bird Raiser/Techni kelle ID = [id number] for MARFIL, JOSE ARMANDO Lab Interpretation (test Abnormal code = 62811-7) [facility]-[id number] 22:43:06 Test Item Value Reference Range Interpretation Comments POC-Hematocrit (test code 24 % 36-45 L : = 1857) Bird Raiser/Techni kelle ID = [id number] for MARFIL, JOSE ARMANDO Lab Interpretation (test Abnormal code = 44121-7) [facility]-[id number] 22:43:06 Test Item Value Reference Range Interpretation Comments POC-Hemoglobin (test code 8.2 g/dL 12.0-15.0 L : TESTED AT [facility] = 1856) [address] [place] [address], [address] 30: Bird Raiser/Techni kelle ID = [id number] for MARFIL, JOSE ARMANDO Lab Interpretation (test Abnormal code = 38169-8) [facility]-[id number] 22:43:06 Test Item Value Reference Range Interpretation Comments POC-Hematocrit (test code 24 % 36-45 L : = 1857) Bird Raiser/Techni kelle ID = [id number] for MARFIL, JOSE ARMANDO Lab Interpretation (test Abnormal code = 04259-5) [facility]-[id number] 22:43:06 Test Item Value Reference Range Interpretation Comments POC-Hemoglobin (test code 8.2 g/dL 12.0-15.0 L : TESTED AT [facility] = 1856) [address] [place] [address], [address] 30: Bird Raiser/Techni kelle ID = [id number] for MARFIL, JOSE ARMANDO Lab Interpretation (test Abnormal code = 78216-9) [facility]-[id number] 22:43:06 Test Item Value Reference Range Interpretation Comments POC-Hematocrit (test code 24 % 36-45 L : = 1857) Bird Raiser/Techni kelle ID = [id number] for MARFIL, JOSE ARMANDO Lab Interpretation (test Abnormal code = 67994-9) [facility]KPZB-[id number] 22:43:06 Test Item Value Reference Range Interpretation Comments POC-Hemoglobin (test code 8.2 g/dL 12.0-15.0 L : TESTED AT [facility] = 1856) [address] [place] [address], [address] 30: Bird Raiser/Techni kelle ID = [id number] for MARFIL, JOSE ARMANDO Lab Interpretation (test Abnormal code = 61680-5) [facility]HEBC-[id number] 22:43:06 Test Item Value Reference Range Interpretation Comments POC-Hematocrit (test code 24 % 36-45 L : = 1857) Bird Raiser/Techni kelle ID = [id number] for MARFIL, JOSE ARMANDO Lab Interpretation (test Abnormal code = 82308-6) [facility]-[id number] 22:43:06 Test Item Value Reference Range Interpretation Comments POC-HEMOGLOBIN 8.2 g/dL 12.0-15.0 L : TESTED AT [place] [address] (BEAKER) (test code = YUDY [place], 1856) [address]: Bird Raiser/Techni kelle ID = [id number] for MARF IL, JOSE ARMANDO YYKO-[id number] 22:43:06 Test Item Value Reference Range Interpretation Comments POC-HEMATOCRIT 24 % 36-45 L : Bird Raiser/Te chnician ID = (BEAKER) (test code = 708104 for MARFIL, JOSE ARMANDO 1857) NUQ-Juiwhdaua7522-12-09 22:43:05 Test Item Value Reference Range Interpretation Comments POC-Potassium (test code 3.4 meq/L 3.6-5.5 L : T ESTED AT [facility] = 1540) [address] [place] [address], 7[address] 30: Bird Raiser/Techni kelle ID = [id number] for MARFIL, JOSE ARMANDO Lab Interpretation (test Abnormal code = 70409-1) [facility]-Wjclhd6300-04-04 22:43:05 Test Item Value Reference Range Interpretation Comments POC-Sodium (test code = 137 meq/L 135-148 : TE STED AT [facility] 1542) [address] [place] [address], 7[address] 30: Bird Raiser/Techni kelle ID = [id number] for MARFIL, JOSE ARMANDO Lab Interpretation (test Normal code = 31299-9) [facility]-Mtotglqyh1346-73-03 22:43:05 Test Item Value Reference Range Interpretation Comments POC-Potassium (test code 3.4 meq/L 3.6-5.5 L : T ESTED AT [facility] = 1540) [address] [place] [address], 770 30: Bird Raiser/Techni kelle ID = [id number] for MARFIL, JOSE ARMANDO Lab Interpretation (test Abnormal code = 51887-7) [facility]-[id number] 22:43:05 Test Item Value Reference Range Interpretation Comments POC-Sodium (test code = 137 meq/L 135-148 : TE STED AT [facility] 1542) [address] [place] [address], 770 30: Bird Raiser/Techni kelle ID = [id number] for MARFIL, JOSE ARMANDO Lab Interpretation (test Normal code = 29241-0) [facility]-Rjxluwxcc6003-94-23 22:43:05 Test Item Value Reference Range Interpretation Comments POC-Potassium (test code 3.4 meq/L 3.6-5.5 L : T ESTED AT [facility] = 1540) [address] [place] [address], 7[address] 30: Bird Raiser/Techni kelle ID = [id number] for MARFIL, JOSE ARMANDO Lab Interpretation (test Abnormal code = 75594-6) [facility]-[id number] 22:43:05 Test Item Value Reference Range Interpretation Comments POC-Sodium (test code = 137 meq/L 135-148 : TE STED AT [facility] 1542) [address] [place] [address], 770 30: Bird Raiser/Techni kelle ID = [id number] for MARFIL, JOSE ARMANDO Lab Interpretation (test Normal code = 59507-3) [facility]-Fkhsgzvqo9592-32-15 22:43:05 Test Item Value Reference Range Interpretation Comments POC-Potassium (test code 3.4 meq/L 3.6-5.5 L : T ESTED AT [facility] = 1540) [address] [place] [address], [address] 30: Bird Raiser/Techni kelle ID = [id number] for MARFIL, JOSE ARMANDO Lab Interpretation (test Abnormal code = 02594-3) [facility]-[id number] 22:43:05 Test Item Value Reference Range Interpretation Comments POC-Sodium (test code = 137 meq/L 135-148 : TE STED AT [facility] 1542) [address] [place] [address], 7[address] 30: Bird Raiser/Techni kelle ID = [id number] for MARFIL, JOSE ARMANDO Lab Interpretation (test Normal code = 41681-8) [facility]-Lhmmeekka2385-75-25 22:43:05 Test Item Value Reference Range Interpretation Comments POC-Potassium (test code 3.4 meq/L 3.6-5.5 L : T ESTED AT [facility] = 1540) [address] [place] [address], 7[address] 30: Bird Raiser/Techni kelle ID = [id number] for MARFIL, JOSE ARMANDO Lab Interpretation (test Abnormal code = 52376-1) [facility]ipnjm[facility]91-[facility]-41 22:43:05 Test Item Value Reference Range Interpretation Comments POC-Sodium (test code = 137 meq/L 135-148 : TE STED AT [facility] 1542) [address] [place] [address], [address] 30: Bird Raiser/Techni kelle ID = [id number] for MARFIL, JOSE ARMANDO Lab Interpretation (test Normal code = 85236-8) [facility]-Jvftjwkzf2303-60-40 22:43:05 Test Item Value Reference Range Interpretation Comments POC-Potassium (test code 3.4 meq/L 3.6-5.5 L : T ESTED AT [facility] = 1540) [address] [place] [address], [address] 30: Bird Raiser/Techni kelle ID = [id number] for MARFIL, JOSE ARMANDO Lab Interpretation (test Abnormal code = 22247-8) [facility]-Znavyh2207-58-69 22:43:05 Test Item Value Reference Range Interpretation Comments POC-Sodium (test code = 137 meq/L 135-148 : TE STED AT [facility] 1542) [address] [place] [address], [address] 30: Bird Raiser/Techni kelle ID = [id number] for MARFIL, JOSE ARMANDO Lab Interpretation (test Normal code = 34401-7) [facility]-Djqcqznee9972-92-02 22:43:05 Test Item Value Reference Range Interpretation Comments POC-Potassium (test code 3.4 meq/L 3.6-5.5 L : T ESTED AT [facility] = 1540) [address] [place] [address], [address] 30: Bird Raiser/Techni kelle ID = [id number] for MARFIL, JOSE ARMANDO Lab Interpretation (test Abnormal code = 27932-8) [facility]-Cvxele2634-39-91 22:43:05 Test Item Value Reference Range Interpretation Comments POC-Sodium (test code = 137 meq/L 135-148 : TE STED AT [facility] 1542) [address] [place] [address], [facility] 30: Bird Raiser/Techni kelle ID = [id number] for MARFIL, JOSE ARMANDO Lab Interpretation (test Normal code = 36898-9) [facility]-Hpqxxzzfc7704-33-38 22:43:05 Test Item Value Reference Range Interpretation Comments POC-Potassium (test code 3.4 meq/L 3.6-5.5 L : T ESTED AT [facility] = 1540) [address] [place] [address], [address] 30: Bird Raiser/Techni kelle ID = [id number] for MARFIL, JOSE ARMANDO Lab Interpretation (test Abnormal code = 02154-6) [facility] CampusZguqhd3890-34-73 22:43:05 Test Item Value Reference Range Interpretation Comments POC-Sodium (test code = 137 meq/L 135-148 : TE STED AT [facility] 1542) [address] [place] [address], [facility] 30: Bird Raiser/Techni kelle ID = [id number] for MARFIL, JOSE ARMANDO Lab Interpretation (test Normal code = 50181-9) [facility] CampusPrpiyjcfl9607-41-67 22:43:05 Test Item Value Reference Range Interpretation Comments POC-Potassium (test code 3.4 meq/L 3.6-5.5 L : T ESTED AT [facility] = 1540) [address] [place] [address], [address] 30: Bird Raiser/Techni kelle ID = [id number] for MARFIL, JOSE ARMANDO Lab Interpretation (test Abnormal code = 43736-3) [facility]-Frnzif1715-86-27 22:43:05 Test Item Value Reference Range Interpretation Comments POC-Sodium (test code = 137 meq/L 135-148 : TE STED AT [facility] 1542) [address] [place] [address], [facility] 30: Bird Raiser/Techni kelle ID = [id number] for MARFIL, JOSE ARMANDO Lab Interpretation (test Normal code = 76545-4) [facility]-Ymetzsnas7223-78-17 22:43:05 Test Item Value Reference Range Interpretation Comments POC-Potassium (test code 3.4 meq/L 3.6-5.5 L : T ESTED AT [facility] = 1540) [address] [place] [address], [facility] 30: Bird Raiser/Techni kelle ID = [id number] for MARFIL, JOSE ARMANDO Lab Interpretation (test Abnormal code = 32108-7) [facility]-Ikrzmn1897-00-83 22:43:05 Test Item Value Reference Range Interpretation Comments POC-Sodium (test code = 137 meq/L 135-148 : TE STED AT [facility] 1542) [address] [place] [address], [facility] 30: Bird Raiser/Techni kelle ID = [id number] for MARFIL, JOSE ARMANDO Lab Interpretation (test Normal code = 74897-8) [facility]-Iuojzejsi8116-50-13 22:43:05 Test Item Value Reference Range Interpretation Comments POC-Potassium (test code 3.4 meq/L 3.6-5.5 L : T ESTED AT [facility] = 1540) [address] [place] [address], [facility] 30: Bird Raiser/Techni kelle ID = [id number] for MARFIL, JOSE ARMANDO Lab Interpretation (test Abnormal code = 82194-0) [facility]-Tksqvl0316-47-00 22:43:05 Test Item Value Reference Range Interpretation Comments POC-Sodium (test code = 137 meq/L 135-148 : TE STED AT [facility] 1542) [address] [place] [address], [facility] 30: Bird Raiser/Techni kelle ID = [id number] for MARFIL, JOSE ARMANDO Lab Interpretation (test Normal code = 69697-1) [facility]-Ygzlmatbg9338-48-55 22:43:05 Test Item Value Reference Range Interpretation Comments POC-Potassium (test code 3.4 meq/L 3.6-5.5 L : T ESTED AT [facility] = 1540) [address] [place] [address], [address] 30: Bird Raiser/Techni kelle ID = [id number] for MARFIL, JOSE ARMANDO Lab Interpretation (test Abnormal code = 01084-0) [facility]-Sunxna2310-96-98 22:43:05 Test Item Value Reference Range Interpretation Comments POC-Sodium (test code = 137 meq/L 135-148 : TE STED AT [facility] 1542) [address] [place] [address], [facility] 30: Bird Raiser/Techni kelle ID = [id number] for MARFIL, JOSE ARMANDO Lab Interpretation (test Normal code = 04559-1) [facility]-Zhiokzagu3677-21-65 22:43:05 Test Item Value Reference Range Interpretation Comments POC-Potassium (test code 3.4 meq/L 3.6-5.5 L : T ESTED AT [facility] = 1540) [address] [place] [address], [facility] 30: Bird Raiser/Techni kelle ID = [id number] for MARFIL, JOSE ARMANDO Lab Interpretation (test Abnormal code = 83234-6) [facility]-Zqepqd9516-89-12 22:43:05 Test Item Value Reference Range Interpretation Comments POC-Sodium (test code = 137 meq/L 135-148 : TE STED AT [facility] 1542) [address] [place] [address], [facility] 30: Bird Raiser/Techni kelle ID = [id number] for MARFIL, JOSE ARMANDO Lab Interpretation (test Normal code = 65178-0) [facility]-Kujkwadbd9967-90-46 22:43:05 Test Item Value Reference Range Interpretation Comments POC-Potassium (test code 3.4 meq/L 3.6-5.5 L : T ESTED AT [facility] = 1540) [address] [place] [address], [address] 30: Bird Raiser/Techni kelle ID = [id number] for MARFIL, JOSE ARMANDO Lab Interpretation (test Abnormal code = 60983-7) [facility]-Glfglc8843-97-53 22:43:05 Test Item Value Reference Range Interpretation Comments POC-Sodium (test code = 137 meq/L 135-148 : TE STED AT [facility] 1542) [address] [place] [address], [address] 30: Bird Raiser/Techni kelle ID = [id number] for MARFIL, JOSE ARMANDO Lab Interpretation (test Normal code = 37642-7) [facility]-Tkjuuzfdf6241-19-01 22:43:05 Test Item Value Reference Range Interpretation Comments POC-Potassium (test code 3.4 meq/L 3.6-5.5 L : T ESTED AT [facility] = 1540) [address] [place] [address], [address] 30: Bird Raiser/Techni kelle ID = [id number] for MARFIL, JOSE ARMANDO Lab Interpretation (test Abnormal code = 26954-0) [facility]-Zenajq6758-66-82 22:43:05 Test Item Value Reference Range Interpretation Comments POC-Sodium (test code = 137 meq/L 135-148 : TE STED AT [facility] 1542) [address] [place] [address], [address] 30: Bird Raiser/Techni kelle ID = [id number] for MARFIL, JOSE ARMANDO Lab Interpretation (test Normal code = 87757-7) [facility]-Kiqlfcugc2543-53-18 22:43:05 Test Item Value Reference Range Interpretation Comments POC-Potassium (test code 3.4 meq/L 3.6-5.5 L : T ESTED AT [facility] = 1540) [address] [place] [address], [address] 30: Bird Raiser/Techni kelle ID = [id number] for MARFIL, JOSE ARMANDO Lab Interpretation (test Abnormal code = 71759-2) [facility]-Pwkpdt7170-31-49 22:43:05 Test Item Value Reference Range Interpretation Comments POC-Sodium (test code = 137 meq/L 135-148 : TE STED AT [facility] 1542) [address] [place] [address], [address] 30: Bird Raiser/Techni kelle ID = [id number] for MARFIL, JOSE ARMANDO Lab Interpretation (test Normal code = 72411-3) [facility]-Mjflzxzkf3617-71-09 22:43:05 Test Item Value Reference Range Interpretation Comments POC-Potassium (test code 3.4 meq/L 3.6-5.5 L : T ESTED AT [facility] = 1540) [address] [place] [address], [address] 30: Bird Raiser/Techni kelle ID = [id number] for MARFIL, JOSE ARMANDO Lab Interpretation (test Abnormal code = 05450-3) [facility]Wtcovz0797-63-59 22:43:05 Test Item Value Reference Range Interpretation Comments POC-Sodium (test code = 137 meq/L 135-148 : TE STED AT [facility] 1542) [address] [facility] [place], [address] 30: Bird Raiser/Techni kelle ID = [id number] for MARFIL, JOSE ARMANDO Lab Interpretation (test Normal code = 87583-0) [facility]-[id number] 22:43:05 Test Item Value Reference Range Interpretation Comments POC-SODIUM (BEAKER) 137 meq/L 135-148 : TESTED AT [facility] 6720 (test code = 1542) [facility] [place] [place], [address]: Bird Raiser/Techni kelle ID = [id number] for MARF IL, JOSE ARMANDO FUEW-[id number] 22:43:05 Test Item Value Reference Range Interpretation Comments POC-POTASSIUM 3.4 meq/L 3.6-5.5 L : TESTED AT [facility] 6720 (BEAKER) (test code [facility], = 1540) [address]: Bird Raiser/Techni kelle ID = [id number] for MARF IL, JOSE ARMANDO POC-Blood gases, leawdz3754-06-41 22:42:59 Test Item Value Reference Range Interpretation Comments Temp. Celsius-POC (test 101.3 code = 1834) FIO2-POC (test code = 28 1835) pH, Venous-POC (test 7.484 7.320-7.420 H : TESTE D AT [facility] code = 1842) [address] [facility] [place], [address] PCO2, Venous-POC (test 39.4 See_Comment L If [...] mated message] code = 1844) The system [employer] generated this result transmit levi reference range : 25.0 - 40.0 mm Hg. The reference r alba was not used to interpret this result as normal/abnormal . SO2, Venous-POC (test 87.0 % 40.0-70.0 H code = 1845) HCO3, Venous-POC (test 29.3 meq/L 21.0-29.0 H code = 1846) BE, Venous-POC (test 6.0 meq/L -2.0-3.0 H : code = 1847) Bird Raiser/Techni kelle ID = [id number] for MARFIL, JOSE ARMANDO Lab Interpretation Abnormal (test code = 04083-8) [facility]-Blood gases, pflrms4217-56-61 22:42:59 Test Item Value Reference Range Interpretation Comments Temp. Celsius-POC (test 101.3 code = 1834) FIO2-POC (test code = 28 1835) pH, Venous-POC (test 7.484 7.320-7.420 H : TESTE D AT [facility] code = 1842) [address] [facility], [address] PCO2, Venous-POC (test 39.4 See_Comment L If [...] mated message] code = 1844) The system [employer] generated this result transmit levi reference range : 25.0 - 40.0 mm Hg. The reference r alba was not used to interpret this result as normal/abnormal . SO2, Venous-POC (test 87.0 % 40.0-70.0 H code = 1845) HCO3, Venous-POC (test 29.3 meq/L 21.0-29.0 H code = 1846) BE, Venous-POC (test 6.0 meq/L -2.0-3.0 H : code = 1847) Bird Raiser/Techni kelle ID = [id number] for MARFIL, JOSE ARMANDO Lab Interpretation Abnormal (test code = 41057-4) [facility]-Blood gases, [id number] 22:42:59 Test Item Value Reference Range Interpretation Comments Temp. Celsius-POC (test 101.3 code = 1834) FIO2-POC (test code = 1834) pH, Venous-POC (test 7.484 7.320-7.420 H : TESTE D AT [facility] code = 1842) [address] [facility] [place], [address] PCO2, Venous-POC (test 39.4 See_Comment L If [...] mated message] code = 1844) The system GroundWork generated this result transmit levi reference range : 25.0 - 40.0 mm Hg. The reference r alba was not used to interpret this result as normal/abnormal . SO2, Venous-POC (test 87.0 % 40.0-70.0 H code = 1845) HCO3, Venous-POC (test 29.3 meq/L 21.0-29.0 H code = 1846) BE, Venous-POC (test 6.0 meq/L -2.0-3.0 H : code = 1847) Bird Raiser/Techni kelle ID = [id number] for JOSE ARMANDO CELIS Lab Interpretation Abnormal (test code = 31992-1) [facility] gases, [id number] 22:42:59 Test Item Value Reference Range Interpretation Comments Temp. Celsius-POC (test 101.3 code = 1834) FIO2-POC (test code = 1834) pH, Venous-POC (test 7.484 7.320-7.420 H : TESTE D AT [facility] code = 1842) [address] [facility] [place], [address] PCO2, Venous-POC (test 39.4 See_Comment L If [...] mated message] code = 1844) The system GroundWork generated this result transmit levi reference range : 25.0 - 40.0 mm Hg. The reference r alba was not used to interpret this result as normal/abnormal . SO2, Venous-POC (test 87.0 % 40.0-70.0 H code = 1845) HCO3, Venous-POC (test 29.3 meq/L 21.0-29.0 H code = 1846) BE, Venous-POC (test 6.0 meq/L -2.0-3.0 H : code = 1847) Bird Raiser/Techni kelle ID = [id number] for JOSE ARMANDO CELIS Lab Interpretation Abnormal (test code = 47102-0) [facility], [id number] 22:42:59 Test Item Value Reference Range Interpretation Comments Temp. Celsius-POC (test 101.3 code = 1834) FIO2-POC (test code = 28 1835) pH, Venous-POC (test 7.484 7.320-7.420 H : TESTE D AT [facility] code = 1842) [address] [facility], [address] PCO2, Venous-POC (test 39.4 See_Comment L If [...] mated message] code = 1844) The system [employer] generated this result transmit levi reference range : 25.0 - 40.0 mm Hg. The reference r alba was not used to interpret this result as normal/abnormal . SO2, Venous-POC (test 87.0 % 40.0-70.0 H code = 1845) HCO3, Venous-POC (test 29.3 meq/L 21.0-29.0 H code = 1846) BE, Venous-POC (test 6.0 meq/L -2.0-3.0 H : code = 1847) Bird Raiser/Techni kelle ID = [id number] for MARFIL, JOSE ARMANDO Lab Interpretation Abnormal (test code = 51680-7) [facility], [id number] 22:42:59 Test Item Value Reference Range Interpretation Comments Temp. Celsius-POC (test 101.3 code = 1834) FIO2-POC (test code = 28 1834) pH, Venous-POC (test 7.484 7.320-7.420 H : TESTE D AT [facility] code = 1842) [address] [facility] [place], [address] PCO2, Venous-POC (test 39.4 See_Comment L If [...] mated message] code = 1844) The system [employer] generated this result transmit levi reference range : 25.0 - 40.0 mm Hg. The reference r alba was not used to interpret this result as normal/abnormal . SO2, Venous-POC (test 87.0 % 40.0-70.0 H code = 1845) HCO3, Venous-POC (test 29.3 meq/L 21.0-29.0 H code = 1846) BE, Venous-POC (test 6.0 meq/L -2.0-3.0 H : code = 1847) Bird Raiser/Techni kelle ID = [id number] for MARFIL, JOSE ARMANDO Lab Interpretation Abnormal (test code = 77855-0) [facility], [id number] 22:42:59 Test Item Value Reference Range Interpretation Comments Temp. Celsius-POC (test 101.3 code = 1834) FIO2-POC (test code = 28 5) pH, Venous-POC (test 7.484 7.320-7.420 H : TESTE D AT [facility] code = 1842) [address] [facility] [place], [address] PCO2, Venous-POC (test 39.4 See_Comment L If [...] mated message] code = 1844) The system [employer] generated this result transmit levi reference range : 25.0 - 40.0 mm Hg. The reference r alba was not used to interpret this result as normal/abnormal . SO2, Venous-POC (test 87.0 % 40.0-70.0 H code = 1845) HCO3, Venous-POC (test 29.3 meq/L 21.0-29.0 H code = 1846) BE, Venous-POC (test 6.0 meq/L -2.0-3.0 H : code = 1847) Bird Raiser/Techni kelle ID = [id number] for JOSE ARMANDO CELIS Lab Interpretation Abnormal (test code = 74869-6) [facility], [id number] 22:42:59 Test Item Value Reference Range Interpretation Comments Temp. Celsius-POC (test 101.3 code = 1834) FIO2-POC (test code = 28 1835) pH, Venous-POC (test 7.484 7.320-7.420 H : TESTE D AT [facility] code = 1842) [address] [facility] [place], [address] PCO2, Venous-POC (test 39.4 See_Comment L If [...] mated message] code = 1844) The system [employer] generated this result transmit levi reference range : 25.0 - 40.0 mm Hg. The reference r alba was not used to interpret this result as normal/abnormal . SO2, Venous-POC (test 87.0 % 40.0-70.0 H code = 1845) HCO3, Venous-POC (test 29.3 meq/L 21.0-29.0 H code = 1846) BE, Venous-POC (test 6.0 meq/L -2.0-3.0 H : code = 1847) Bird Raiser/Techni kelle ID = [id number] for MARFIL, JOSE ARMANDO Lab Interpretation Abnormal (test code = 83030-6) [facility], [id number] 22:42:59 Test Item Value Reference Range Interpretation Comments Temp. Celsius-POC (test 101.3 code = 1834) FIO2-POC (test code = 28 1835) pH, Venous-POC (test 7.484 7.320-7.420 H : TESTE D AT [facility] code = 1842) [address] [facility], [address] PCO2, Venous-POC (test 39.4 See_Comment L If [...] mated message] code = 1844) The system Fliteic h generated this result transmit levi reference range : 25.0 - 40.0 mm Hg. The reference r alba was not used to interpret this result as normal/abnormal . SO2, Venous-POC (test 87.0 % 40.0-70.0 H code = 1845) HCO3, Venous-POC (test 29.3 meq/L 21.0-29.0 H code = 1846) BE, Venous-POC (test 6.0 meq/L -2.0-3.0 H : code = 1847) Bird Raiser/Techni kelle ID = [id number] for MARFIL, JOSE ARMANDO Lab Interpretation Abnormal (test code = 89969-1) [facility], [id number] 22:42:59 Test Item Value Reference Range Interpretation Comments Temp. Celsius-POC (test 101.3 code = 1834) FIO2-POC (test code = 1834) pH, Venous-POC (test 7.484 7.320-7.420 H : TESTE D AT [facility] code = 1842) [address] [facility], [address] PCO2, Venous-POC (test 39.4 See_Comment L If [...] mated message] code = 1844) The system GroundWork generated this result transmit levi reference range : 25.0 - 40.0 mm Hg. The reference r alba was not used to interpret this result as normal/abnormal . SO2, Venous-POC (test 87.0 % 40.0-70.0 H code = 1845) HCO3, Venous-POC (test 29.3 meq/L 21.0-29.0 H code = 1846) BE, Venous-POC (test 6.0 meq/L -2.0-3.0 H : code = 1847) Bird Raiser/Techni kelle ID = [id number] for HERBERT CELISE Lab Interpretation Abnormal (test code = 49950-8) [facility], [id number] 22:42:59 Test Item Value Reference Range Interpretation Comments Temp. Celsius-POC (test 101.3 code = 183) FIO2-POC (test code = 1834) pH, Venous-POC (test 7.484 7.320-7.420 H : TESTE D AT [facility] code = 1842) [address] [facility] [place], [address] PCO2, Venous-POC (test 39.4 See_Comment L If [...] mated message] code = 1844) The system GroundWork generated this result transmit levi reference range : 25.0 - 40.0 mm Hg. The reference r alba was not used to interpret this result as normal/abnormal . SO2, Venous-POC (test 87.0 % 40.0-70.0 H code = 1845) HCO3, Venous-POC (test 29.3 meq/L 21.0-29.0 H code = 1846) BE, Venous-POC (test 6.0 meq/L -2.0-3.0 H : code = 1847) Bird Raiser/Techni kelle ID = [id number] for MARFIL, JOSE ARMANDO Lab Interpretation Abnormal (test code = 49216-2) [facility], [id number] 22:42:59 Test Item Value Reference Range Interpretation Comments Temp. Celsius-POC (test 101.3 code = 1834) FIO2-POC (test code = 28 1835) pH, Venous-POC (test 7.484 7.320-7.420 H : TESTE D AT [facility] code = 1842) [address] [facility], [address] PCO2, Venous-POC (test 39.4 See_Comment L If [...] mated message] code = 1844) The system GroundWork generated this result transmit levi reference range : 25.0 - 40.0 mm Hg. The reference r alba was not used to interpret this result as normal/abnormal . SO2, Venous-POC (test 87.0 % 40.0-70.0 H code = 1845) HCO3, Venous-POC (test 29.3 meq/L 21.0-29.0 H code = 1846) BE, Venous-POC (test 6.0 meq/L -2.0-3.0 H : code = 1847) Bird Raiser/Techni kelle ID = [id number] for MARFIL, JOSE ARMANDO Lab Interpretation Abnormal (test code = 89894-6) [facility], [id number] 22:42:59 Test Item Value Reference Range Interpretation Comments Temp. Celsius-POC (test 101.3 code = 1834) FIO2-POC (test code = 1834) pH, Venous-POC (test 7.484 7.320-7.420 H : TESTE D AT [facility] code = 1842) [address] [place], [address] PCO2, Venous-POC (test 39.4 See_Comment L If [...] mated message] code = 1844) The system GroundWork generated this result transmit levi reference range : 25.0 - 40.0 mm Hg. The reference r alba was not used to interpret this result as normal/abnormal . SO2, Venous-POC (test 87.0 % 40.0-70.0 H code = 1845) HCO3, Venous-POC (test 29.3 meq/L 21.0-29.0 H code = 1846) BE, Venous-POC (test 6.0 meq/L -2.0-3.0 H : code = 1847) Bird Raiser/Techni kelle ID = [id number] for JOSE ARMANDO CELIS Lab Interpretation Abnormal (test code = 33554-6) [facility], [id number] 22:42:59 Test Item Value Reference Range Interpretation Comments Temp. Celsius-POC (test 101.3 code = 1834) FIO2-POC (test code = 1834) pH, Venous-POC (test 7.484 7.320-7.420 H : TESTE D AT [facility] code = 1842) [address] [place], [address] PCO2, Venous-POC (test 39.4 See_Comment L If pO 2 is >180, pCO2 code = 1843) may be positive ly biased [Automat ed message] The sy stem which generated this result transmit levi reference range : 41.0 - 51.0 mm Hg. The reference r alab was not used to interpret this result as normal/abnormal . PO2, Venous-POC (test 53.0 See_Comment H [Auto mated message] code = 1844) The system [employer] generated this result transmit levi reference range : 25.0 - 40.0 mm Hg. The reference r alba was not used to interpret this result as normal/abnormal . SO2, Venous-POC (test 87.0 % 40.0-70.0 H code = 1845) HCO3, Venous-POC (test 29.3 meq/L 21.0-29.0 H code = 1846) BE, Venous-POC (test 6.0 meq/L -2.0-3.0 H : code = 1847) Bird Raiser/Techni kelle ID = [id number] for JOSE ARMANDO CELIS Lab Interpretation Abnormal (test code = 96609-3) [facility], [id number] 22:42:59 Test Item Value Reference Range Interpretation Comments Temp. Celsius-POC (test 101.3 code = 1834) FIO2-POC (test code = 28 1835) pH, Venous-POC (test 7.484 7.320-7.420 H : TESTE D AT [facility] code = 1842) [address] [facility], [address] PCO2, Venous-POC (test 39.4 See_Comment L If [...] mated message] code = 1844) The system [employer] generated this result transmit levi reference range : 25.0 - 40.0 mm Hg. The reference r alba was not used to interpret this result as normal/abnormal . SO2, Venous-POC (test 87.0 % 40.0-70.0 H code = 1845) HCO3, Venous-POC (test 29.3 meq/L 21.0-29.0 H code = 1846) BE, Venous-POC (test 6.0 meq/L -2.0-3.0 H : code = 1847) Bird Raiser/Techni kelle ID = [id number] for MARFIL, JOSE ARMANDO Lab Interpretation Abnormal (test code = 33641-5) [facility], [id number] 22:42:59 Test Item Value Reference Range Interpretation Comments Temp. Celsius-POC (test 101.3 code = 1834) FIO2-POC (test code = 28 1834) pH, Venous-POC (test 7.484 7.320-7.420 H : TESTE D AT [facility] code = 1842) [address] [place], [address] PCO2, Venous-POC (test 39.4 See_Comment L If [...] mated message] code = 1844) The system [employer] generated this result transmit levi reference range : 25.0 - 40.0 mm Hg. The reference r alba was not used to interpret this result as normal/abnormal . SO2, Venous-POC (test 87.0 % 40.0-70.0 H code = 1845) HCO3, Venous-POC (test 29.3 meq/L 21.0-29.0 H code = 1846) BE, Venous-POC (test 6.0 meq/L -2.0-3.0 H : code = 1847) Bird Raiser/Techni kelle ID = [id number] for MARFIL, JOSE ARMANDO Lab Interpretation Abnormal (test code = 28146-1) [facility], [id number] 22:42:59 Test Item Value Reference Range Interpretation Comments Temp. Celsius-POC (test 101.3 code = 1834) FIO2-POC (test code = 28 1834) pH, Venous-POC (test 7.484 7.320-7.420 H : TESTE D AT [facility] code = 1842) [address] [facility], [address] PCO2, Venous-POC (test 39.4 See_Comment L If [...] mated message] code = 1844) The system Hövding h generated this result transmit levi reference range : 25.0 - 40.0 mm Hg. The reference r alba was not used to interpret this result as normal/abnormal . SO2, Venous-POC (test 87.0 % 40.0-70.0 H code = 1845) HCO3, Venous-POC (test 29.3 meq/L 21.0-29.0 H code = 1846) BE, Venous-POC (test 6.0 meq/L -2.0-3.0 H : code = 1847) Bird Raiser/Techni kelle ID = [id number] for JOSE ARMANOD CELIS Lab Interpretation Abnormal (test code = 03000-4) [facility] [id number] 22:42:59 Test Item Value Reference Range Interpretation Comments TEMP, CELSIUS-POC 101.3 (BEAKER) (test code = 1834) FIO2-POC (BEAKER) 28 (test code = 1835) PH, VENOUS-POC 7.484 7.320-7.420 H : TESTED AT [facility] [address] (BEAKER) (test code [address] [facility], = 1842) [address] PCO2, VENOUS-POC 39.4 mm Hg 41.0-51.0 L [...] BASE EXCESS, 6.0 meq/L -2.0-3.0 H : Bird Raiser/Tech nician ID [facility] = [id number] for MARFIL, (test code = 1847) JOSE ARMANDO LACTIC ACID, [id number] 22:23:56 Test Item Value Reference Range Interpretation Comments LACTATE BLOOD VENOUS 0.92 mmol/L 0.50-2.20 Specime n moderately (2) (BEAKER) (test hemolyzed code = 2872) Bird Raiser ID - BSPOCT-GLUCOSE [id number] 21:35:23 Test Item Value Reference Range Interpretation Comments POC-GLUCOSE METER 125 mg/dL 70-110 H : TESTED A T [facility] [address] ([facility]) (test code = [facility], 1538) [address]: Bird Raiser/Techni kelle ID = [id number] for UG EM HAMLINA POCT-GLUCOSE [id number] 17:05:43 Test Item Value Reference Range Interpretation Comments POC-GLUCOSE METER 224 mg/dL 70-110 H : [facility] [address] [facility] ([facility] code = [facility] [employer] [facility], 1538) [address]: Bird Raiser/Techni kelle ID = [id number] for Re yes, Maranda POCT-GLUCOSE [id number] 16:33:44 Test Item Value Reference Range Interpretation Comments POC-GLUCOSE METER 108 mg/dL 70-110 : [facility] [address] [facility] (test code = [facility] [employer] [facility], 1538) [address]: Bird Raiser/Techni kelle ID = [id number] for Ag Herminia ball POCT-GLUCOSE [id number] 07:38:21 Test Item Value Reference Range Interpretation Comments POC-GLUCOSE METER 185 mg/dL 70-110 H : TESTED A T [facility] [address] ([employer]) (test code = [facility] [employer] [facility], 1538) [address]: Bird Raiser/Techni kelle ID = [id number] for Re yes, Maranda BASIC METABOLIC [id number] 07:20:13 Test Item Value Reference Range Interpretation [...] S NOT APPLICABLE FOR DIALYSIS PATIEN TS. Bird Raiser ID - HIEN [id number] 06:54:10 Test Item Value Reference Range Interpretation Comments PHOSPHORUS (BEAKER) (test code = 4.6 mg/dL 2.3-4.7 604) Bird Raiser ID - HIEN [id number] 06:54:09 Test Item Value Reference Range Interpretation Comments MAGNESIUM (BEAKER) (test code = 2.2 mg/dL 1.6-2.6 627) Bird Raiser ID - HIEN [facility] W/PLT COUNT & AUTO [id number] 04:53:46 Test Item Value Reference Range Interpretation [...] PERCENT (BEAKER) (test code = 2801) POCT-GLUCOSE [id number] 21:34:14 Test Item Value Reference Range Interpretation Comments POC-GLUCOSE METER 260 mg/dL 70-110 H : TESTED A T [facility] [address] (BEAKER) (test code = [facility], 1538) [address]: Bird Raiser/Techni kelle ID = [id number] for GHADA BECK POCT-GLUCOSE [id number] 16:27:30 Test Item Value Reference Range Interpretation Comments POC-GLUCOSE METER 170 mg/dL 70-110 H : TESTED A T [facility] [address] (BEAKER) (test code = [facility], 1538) [address]: Bird Raiser/Techni kelle ID = [id number] for Mc Fee, [place] 2D Echo W/Doppler(CW/PW/Color)2021-06-09 16:08:58Ejection FractionSLEH ECHO HEARTLAB [facility]Doppler(CW/PW/Color)2021-06-09 16:08:58Ejection FractionSLEH ECHO HEARTLAB [facility] W/Doppler(CW/PW/Color) 2021-06-09 16:08:58Ejection FractionSLEH ECHO HEARTLAB [facility] W/Doppler(CW/PW/Color)2021-06-09 16:08:58Ejection FractionSLEH ECHO HEARTLAB [facility] W/Doppler(CW/PW/Color)2021-06-09 16:08:58Ejection FractionSLEH ECHO HEARTLAB [facility] W/Doppler(CW/PW/Color) 2021-06-09 16:08:58Ejection FractionSLEH ECHO HEARTLAB [facility] W/Doppler(CW/PW/Color)2021-06-09 16:08:58Ejection FractionSLEH ECHO HEARTLAB [facility] W/Doppler(CW/PW/Color)2021-06-09 16:08:58Ejection FractionSLEH ECHO HEARTLAB [facility] W/Doppler(CW/PW/Color) 2021-06-09 16:08:58Ejection FractionSLEH ECHO HEARTLAB [facility] W/Doppler(CW/PW/Color)2021-06-09 16:08:58Ejection FractionSLEH ECHO HEARTLAB [facility] W/Doppler(CW/PW/Color)2021-06-09 16:08:58Ejection FractionSLEH ECHO HEARTLAB [facility] W/Doppler(CW/PW/Color) 2021-06-09 16:08:58Ejection FractionSLEH ECHO HEARTLAB [facility] Echo W/Doppler(CW/PW/Color)2021-06-09 16:08:58Ejection FractionSLEH ECHO HEARTLAB MKALIDA [facility]2D Echo W/Doppler(CW/PW/Color)2021-06-09 16:08:58Ejection FractionSLEH ECHO HEARTLAB MKALIDA [facility]2D Echo W/Doppler(CW/PW/Color) 2021-06-09 16:08:58Ejection FractionSLEH ECHO HEARTLAB SHANDRA [facility]2D Echo W/Doppler(CW/PW/Color)2021-06-09 16:08:58Ejection FractionSLEH ECHO HEARTLAB [facility]DR[facility] Echo W/Doppler(CW/PW/Color)2021-06-09 16:08:58Ejection FractionSLEH ECHO HEARTLAB [facility] [id number] 16:06:54Ejection FractionSLEH ECHO HEARTLAB [facility] [id number] 16:06:54Ejection FractionSLEH ECHO HEARTLAB [facility] [id number] 16:06:54Ejection FractionSLEH ECHO HEARTLAB [facility] [id number] 16:06:54Ejection FractionSLEH ECHO HEARTLAB [facility] [id number] 16:06:54Ejection FractionSLEH ECHO HEARTLAB [facility] [id number] 16:06:54Ejection FractionSLEH ECHO HEARTLAB [facility] [id number] 16:06:54Ejection FractionSLEH ECHO HEARTLAB [facility] [id number] 16:06:54Ejection FractionSLEH ECHO HEARTLAB [facility] [id number] 16:06:54Ejection FractionSLEH ECHO HEARTLAB [facility] [id number] 16:06:54Ejection FractionSLEH ECHO HEARTLAB [facility] [id number] 16:06:54Ejection FractionSLEH ECHO HEARTLAB [facility] [id number] 16:06:54Ejection FractionSLEH ECHO HEARTLAB [facility] [id number] 16:06:54Ejection FractionSLEH ECHO HEARTLAB [facility] [id number] 16:06:54Ejection FractionSLEH ECHO HEARTLAB MKMERIESSON [facility] [id number] 16:06:54Ejection FractionSLEH ECHO HEARTLAB [facility] [id number] 16:06:54Ejection FractionSLEH ECHO HEARTLAB MKMERIESSON [facility] [id number] 16:06:54Ejection FractionSLEH ECHO HEARTLAB [facility] [id number] 06:23:12 Test Item Value Reference Range Interpretation Comments POC-GLUCOSE METER 250 mg/dL 70-110 H : TESTED A T [facility] 6720 (BEAKER) (test code = [place] [facility], 1538) [address]: Bird Raiser/Techni kelle ID = [id number] for Tavia Bruce BASIC METABOLIC [id number] 04:37:07 Test Item Value Reference Range Interpretation [...] S NOT APPLICABLE FOR DIALYSIS PATIEN TS. Bird Raiser ID - RAKAN [id number] 04:30:49 Test Item Value Reference Range Interpretation Comments PHOSPHORUS (BEAKER) (test code = 3.8 mg/dL 2.3-4.7 604) Bird Raiser ID - RAKAN [id number] 04:30:48 Test Item Value Reference Range Interpretation Comments MAGNESIUM (BEAKER) (test code = 2.0 mg/dL 1.6-2.6 627) Bird Raiser ID - RAKAN WCBC W/PLT COUNT & AUTO [id number] 03:53:11 Test Item Value Reference Range Interpretation [...] (BEAKER) (test code = 2801) Hepatitis panel, [id number] 23:49:54 Test Item Value Reference Range Interpretation Comments Hep A IgM (test code = Nonreactive Nonreactive 38262-1) Hep B C IgM (test code = Nonreactive Nonreactive 30360-3) Hepatitis C Ab (test code = Nonreactive Nonreactive 45860-4) Hepatitis B surface antigen Nonreactive Nonreactive (test code = 5195-3) BRANDI (test code = BRANDI) Bird Raiser ID - DB Lab Interpretation (test Normal code = 42843-0) [facility], [id number] 23:49:54 Test Item Value Reference Range Interpretation Comments Hep A IgM (test code = Nonreactive Nonreactive 86561-5) Hep B C IgM (test code = Nonreactive Nonreactive 99959-4) Hepatitis C Ab (test code = Nonreactive Nonreactive 46268-5) Hepatitis B surface antigen Nonreactive Nonreactive (test code = 5195-3) BRANDI (test code = BRANDI) Bird Raiser ID - DB Lab Interpretation (test Normal code = 40560-4) [facility] panel, [id number] 23:49:54 Test Item Value Reference Range Interpretation Comments Hep A IgM (test code = Nonreactive Nonreactive 77573-8) Hep B C IgM (test code = Nonreactive Nonreactive 40778-3) Hepatitis C Ab (test code = Nonreactive Nonreactive 49869-6) Hepatitis B surface antigen Nonreactive Nonreactive (test code = 5195-3) BRANDI (test code = BRANDI) [facility] Raiser ID - DB Lab Interpretation (test Normal code = 86885-3) [facility] panel, [id number] 23:49:54 Test Item Value Reference Range Interpretation Comments Hep A IgM (test code = Nonreactive Nonreactive 59189-0) Hep B C IgM (test code = Nonreactive Nonreactive 64357-9) Hepatitis C Ab (test code = Nonreactive Nonreactive 06393-0) Hepatitis B surface antigen Nonreactive Nonreactive (test code = 5195-3) BRANDI (test code = BRANDI) [facility] Raiser ID - DB Lab Interpretation (test Normal code = 57532-2) [facility] panel, [id number] 23:49:54 Test Item Value Reference Range Interpretation Comments Hep A IgM (test code = Nonreactive Nonreactive 42846-9) Hep B C IgM (test code = Nonreactive Nonreactive 53685-8) Hepatitis C Ab (test code = Nonreactive Nonreactive 34961-6) Hepatitis B surface antigen Nonreactive Nonreactive (test code = 5195-3) BRANDI (test code = BRANDI) [facility]aiser ID - DB Lab Interpretation (test Normal code = 45088-2) [facility] [id number] 23:49:54 Test Item Value Reference Range Interpretation Comments Hep A IgM (test code = Nonreactive Nonreactive 01740-3) Hep B C IgM (test code = Nonreactive Nonreactive 87578-1) Hepatitis C Ab (test code = Nonreactive Nonreactive 68124-0) Hepatitis B surface antigen Nonreactive Nonreactive (test code = 5195-3) BRANDI (test code = BRANDI) Bird Raiser ID - DB Lab Interpretation (test Normal code = 45904-4) [facility] panel, [id number] 23:49:54 Test Item Value Reference Range Interpretation Comments Hep A IgM (test code = Nonreactive Nonreactive 99532-2) Hep B C IgM (test code = Nonreactive Nonreactive 72969-2) Hepatitis C Ab (test code = Nonreactive Nonreactive 08042-7) Hepatitis B surface antigen Nonreactive Nonreactive (test code = 5195-3) BRANDI (test code = BRANDI) Bird Raiser ID - DB Lab Interpretation (test Normal code = 31861-4) [facility] panel, [id number] 23:49:54 Test Item Value Reference Range Interpretation Comments Hep A IgM (test code = Nonreactive Nonreactive 71774-2) Hep B C IgM (test code = Nonreactive Nonreactive 68976-0) Hepatitis C Ab (test code = Nonreactive Nonreactive 01898-3) Hepatitis B surface antigen Nonreactive Nonreactive (test code = 5195-3) BRANDI (test code = BRANDI) Bird Raiser ID - DB Lab Interpretation (test Normal code = 60210-2) [facility] panel, [id number] 23:49:54 Test Item Value Reference Range Interpretation Comments Hep A IgM (test code = Nonreactive Nonreactive 82355-8) Hep B C IgM (test code = Nonreactive Nonreactive 83816-4) Hepatitis C Ab (test code = Nonreactive Nonreactive 15125-5) Hepatitis B surface antigen Nonreactive Nonreactive (test code = 5195-3) BRANDI (test code = BRANDI) Bird Raiser ID - DB Lab Interpretation (test Normal code = 89646-2) [facility] panel, [id number] 23:49:54 Test Item Value Reference Range Interpretation Comments Hep A IgM (test code = Nonreactive Nonreactive 22423-8) Hep B C IgM (test code = Nonreactive Nonreactive 14614-7) Hepatitis C Ab (test code = Nonreactive Nonreactive 57960-5) Hepatitis B surface antigen Nonreactive Nonreactive (test code = 5195-3) BRANDI (test code = BRANDI) Bird Raiser ID - DB Lab Interpretation (test Normal code = 83361-0) [facility] panel, [id number] 23:49:54 Test Item Value Reference Range Interpretation Comments Hep A IgM (test code = Nonreactive Nonreactive 45284-5) Hep B C IgM (test code = Nonreactive Nonreactive 14382-1) Hepatitis C Ab (test code = Nonreactive Nonreactive 09869-5) Hepatitis B surface antigen Nonreactive Nonreactive (test code = 5195-3) BRANDI (test code = BRANDI) Bird Raiser ID - DB Lab Interpretation (test Normal code = 40949-2) [facility] panel, [id number] 23:49:54 Test Item Value Reference Range Interpretation Comments Hep A IgM (test code = Nonreactive Nonreactive 74069-4) Hep B C IgM (test code = Nonreactive Nonreactive 90498-6) Hepatitis C Ab (test code = Nonreactive Nonreactive 96100-0) Hepatitis B surface antigen Nonreactive Nonreactive (test code = 5195-3) BRANDI (test code = BRANDI) Bird Raiser ID - DB Lab Interpretation (test Normal code = 74345-1) [facility] panel, [id number] 23:49:54 Test Item Value Reference Range Interpretation Comments Hep A IgM (test code = Nonreactive Nonreactive 97761-4) Hep B C IgM (test code = Nonreactive Nonreactive 32701-9) Hepatitis C Ab (test code = Nonreactive Nonreactive 68162-4) Hepatitis B surface antigen Nonreactive Nonreactive (test code = 5195-3) BRANDI (test code = BRANDI) Bird Raiser ID - DB Lab Interpretation (test Normal code = 15084-0) [facility] panel, [id number] 23:49:54 Test Item Value Reference Range Interpretation Comments Hep A IgM (test code = Nonreactive Nonreactive 18558-7) Hep B C IgM (test code = Nonreactive Nonreactive 35217-2) Hepatitis C Ab (test code = Nonreactive Nonreactive 65382-8) Hepatitis B surface antigen Nonreactive Nonreactive (test code = 5195-3) BRANDI (test code = BRANDI) Bird Raiser ID - DB Lab Interpretation (test Normal code = 69066-5) [facility] panel, [id number] 23:49:54 Test Item Value Reference Range Interpretation Comments Hep A IgM (test code = Nonreactive Nonreactive 31705-6) Hep B C IgM (test code = Nonreactive Nonreactive 92049-4) Hepatitis C Ab (test code = Nonreactive Nonreactive 59226-6) Hepatitis B surface antigen Nonreactive Nonreactive (test code = 5195-3) BRANDI (test code = BRANDI) Bird Raiser ID - DB Lab Interpretation (test Normal code = 60430-6) [facility] panel, [id number] 23:49:54 Test Item Value Reference Range Interpretation Comments Hep A IgM (test code = Nonreactive Nonreactive 08934-7) Hep B C IgM (test code = Nonreactive Nonreactive 75559-3) Hepatitis C Ab (test code = Nonreactive Nonreactive 92919-1) Hepatitis B surface antigen Nonreactive Nonreactive (test code = 5195-3) BRANDI (test code = BRANDI) Bird Raiser ID - DB Lab Interpretation (test Normal code = 18856-1) [facility] panel, [id number] 23:49:54 Test Item Value Reference Range Interpretation Comments Hep A IgM (test code = Nonreactive Nonreactive 58813-3) Hep B C IgM (test code = Nonreactive Nonreactive 02318-8) Hepatitis C Ab (test code = Nonreactive Nonreactive 45989-2) Hepatitis B surface antigen Nonreactive Nonreactive (test code = 5195-3) BRANDI (test code = BRANDI) Bird Raiser ID - DB Lab Interpretation (test Normal code = 57103-2) [facility] PANEL, [id number] 23:49:54 Test Item Value Reference Range Interpretation Comments HEPATITIS A IGM ANTIBODY (BEAKER) Nonreactive Nonreactive (test code = 498) HEPATITIS B CORE IGM ANTIBODY Nonreactive Nonreactive (BEAKER) (test code = 645) HEPATITIS C ANTIBODY (BEAKER) Nonreactive Nonreactive (test code = 367) HEPATITIS B SURFACE ANTIGEN (2) Nonreactive Nonreactive (BEAKER) (test code = 2585) Bird Raiser ID - DBPOCT-GLUCOSE [id number] 21:22:04 Test Item Value Reference Range Interpretation Comments POC-GLUCOSE METER 193 mg/dL 70-110 H : TESTED A T BSC 6720 (BEAKER) (test code = YUDY WHITE MA, 1538) 08014: Bird Raiser/Techni kelle ID = [id number] for Tavia Bruce Hepatitis B surface [id number] 13:29:36 Test Item Value Reference Range Interpretation Comments Hepatitis B surface Nonreactive Nonreactive antigen (test code = 5195-3) BRANDI (test code = BRANDI) Specimen is considered negative for HBsAg. Lab Interpretation (test Normal code = 26479-8) [facility] [id number] 13:29:36 Test Item Value Reference Range Interpretation Comments Hepatitis B surface Nonreactive Nonreactive antigen (test code = 5195-3) BRANDI (test code = BRANDI) Specimen is considered negative for HBsAg. Lab Interpretation (test Normal code = 14607-5) [facility] [id number] 13:29:36 Test Item Value Reference Range Interpretation Comments Hepatitis B surface Nonreactive Nonreactive antigen (test code = 5195-3) BRANDI (test code = BRANDI) Specimen is considered negative for HBsAg. Lab Interpretation (test Normal code = 35219-2) [facility] [id number] 13:29:36 Test Item Value Reference Range Interpretation Comments Hepatitis B surface Nonreactive Nonreactive antigen (test code = 5195-3) BRANDI (test code = BRANDI) Specimen is considered negative for HBsAg. Lab Interpretation (test Normal code = 07953-2) [facility] [id number] 13:29:36 Test Item Value Reference Range Interpretation Comments Hepatitis B surface Nonreactive Nonreactive antigen (test code = 5195-3) BRANDI (test code = BRANDI) Specimen is considered negative for HBsAg. Lab Interpretation (test Normal code = 33720-3) [facility] [id number] 13:29:36 Test Item Value Reference Range Interpretation Comments Hepatitis B surface Nonreactive Nonreactive antigen (test code = 5195-3) BRANDI (test code = BRANDI) Specimen is considered negative for HBsAg. Lab Interpretation (test Normal code = 72052-5) [facility] [id number] 13:29:36 Test Item Value Reference Range Interpretation Comments Hepatitis B surface Nonreactive Nonreactive antigen (test code = 5195-3) BRANDI (test code = BRANDI) Specimen is considered negative for HBsAg. Lab Interpretation (test Normal code = 13531-1) [facility] [id number] 13:29:36 Test Item Value Reference Range Interpretation Comments Hepatitis B surface Nonreactive Nonreactive antigen (test code = 5195-3) BRANDI (test code = BRANDI) Specimen is considered negative for HBsAg. Lab Interpretation (test Normal code = 72859-5) [facility] [id number] 13:29:36 Test Item Value Reference Range Interpretation Comments Hepatitis B surface Nonreactive Nonreactive antigen (test code = 5195-3) BRANDI (test code = BRANDI) Specimen is considered negative for HBsAg. Lab Interpretation (test Normal code = 53406-8) [facility] B surface [id number] 13:29:36 Test Item Value Reference Range Interpretation Comments Hepatitis B surface Nonreactive Nonreactive antigen (test code = 5195-3) BRANDI (test code = BRANDI) Specimen is considered negative for HBsAg. Lab Interpretation (test Normal code = 68778-9) [facility] B surface [id number] 13:29:36 Test Item Value Reference Range Interpretation Comments Hepatitis B surface Nonreactive Nonreactive antigen (test code = 5195-3) BRANDI (test code = BRANDI) Specimen is considered negative for HBsAg. Lab Interpretation (test Normal code = 16007-9) [facility] [id number] 13:29:36 Test Item Value Reference Range Interpretation Comments Hepatitis B surface Nonreactive Nonreactive antigen (test code = 5195-3) BRANDI (test code = BRANDI) Specimen is considered negative for HBsAg. Lab Interpretation (test Normal code = 47482-5) [facility] [id number] 13:29:36 Test Item Value Reference Range Interpretation Comments Hepatitis B surface Nonreactive Nonreactive antigen (test code = 5195-3) BRANDI (test code = BRANDI) Specimen is considered negative for HBsAg. Lab Interpretation (test Normal code = 98593-2) [facility] [id number] 13:29:36 Test Item Value Reference Range Interpretation Comments Hepatitis B surface Nonreactive Nonreactive antigen (test code = 5195-3) BRANDI (test code = BRANDI) Specimen is considered negative for HBsAg. Lab Interpretation (test Normal code = 89606-2) [facility] [id number] 13:29:36 Test Item Value Reference Range Interpretation Comments Hepatitis B surface Nonreactive Nonreactive antigen (test code = 5195-3) BRANDI (test code = BRANDI) Specimen is considered negative for HBsAg. Lab Interpretation (test Normal code = 48927-3) [facility] B surface gltucel3395-12-79 13:29:36 Test Item Value Reference Range Interpretation Comments Hepatitis B surface Nonreactive Nonreactive antigen (test code = 5195-3) BRANDI (test code = BRANDI) Specimen is considered negative for HBsAg. Lab Interpretation (test Normal code = 95261-5) [facility] B surface [id number] 13:29:36 Test Item Value Reference Range Interpretation Comments Hepatitis B surface Nonreactive Nonreactive antigen (test code = 5195-3) BRANDI (test code = BRANDI) Specimen is considered negative for HBsAg. Lab Interpretation (test Normal code = 59828-4) [facility] SURFACE [id number] 13:29:36 Test Item Value Reference Range Interpretation Comments HEPATITIS B SURFACE ANTIGEN (2) Nonreactive Nonreactive (BEAKER) (test code = 2585) Specimen is considered negative for HBsAg.U/S, ABDOMINAL, [id number] 13:10:00Abdomen limited area? Add comment if clarification is needed.- >LiverReason for exam:->hepatic nodularity reported [facility] : 1955 Sex: FFINAL REPORT TECHNIQUE: Grayscale [...] Webb MDReport Verified Date/Time: 06/08/2021 13:10:45 SARS-COV2/RT-PCR ([facility])2021-06-08 12:35:29 Test Item Value Reference Range Interpretation Comments SARS-COV2/RT-PCR (test Negative Not Detected, Negative, code = 4228655) See external report for linked test SARS-COV-2 PERFORMING LAB [facility] (test code = 1867894) Negative result for this test determines that [...] of the Act.Fact Sheet for Healthcare Prov iders:https://www.[employer]/sites/default/files/product/documents/Fact_Sheet_HC _Uukoagymj_Gkqj_EHUC-FdW-2.pdfFact Sheet for Healthcare Patients:https://www.[employer]/sites/default/files/product/docume nts/Rnbn_Aqqwv_Gosidhou_Lypx_LYKA-QoE-1.pdfPerforming Laboratory:[facility], [place] [address]Gqloepd D, 25-Hydroxy 2021-06-08 11:10:06 Test Item Value Reference Range Interpretation Comments Vitamin D 25-Hydroxy 16.7 ng/mL 6.6-49.9 (test code = 2764) BRANDI (test code = BRANDI) Effective 01/12/2017: Reference Range ChangeNew: 6.6-49.9 ng/mL Previous: 13.0-47.8 ng/mL Recommended Vitamin D Target Range: 30.0-40.0 ng/mLOperator ID - DB Lab Interpretation (test Normal code = 45188-1) [facility], 09-Yskbmsp2559-22-07 11:10:06 Test Item Value Reference Range Interpretation Comments Vitamin D 25-Hydroxy 16.7 ng/mL 6.6-49.9 (test code = 2764) BRANDI (test code = BRANDI) Effective 01/12/2017: Reference Range ChangeNew: 6.6-49.9 ng/mL Previous: 13.0-47.8 ng/mL Recommended Vitamin D Target Range: 30.0-40.0 ng/mLOperator ID - DB Lab Interpretation (test Normal code = 50478-8) [facility], 23-Geefhuh9256-57-07 11:10:06 Test Item Value Reference Range Interpretation Comments Vitamin D 25-Hydroxy 16.7 ng/mL 6.6-49.9 (test code = 2764) BRANDI (test code = BRANDI) Effective 01/12/2017: Reference Range ChangeNew: 6.6-49.9 ng/mL Previous: 13.0-47.8 ng/mL Recommended Vitamin D Target Range: 30.0-40.0 ng/mLOperator ID - DB Lab Interpretation (test Normal code = 33617-5) [facility], 78-[id number] 11:10:06 Test Item Value Reference Range Interpretation Comments Vitamin D 25-Hydroxy 16.7 ng/mL 6.6-49.9 (test code = 2764) BRANDI (test code = BRANDI) Effective 01/12/2017: Reference Range ChangeNew: 6.6-49.9 ng/mL Previous: 13.0-47.8 ng/mL Recommended Vitamin D Target Range: 30.0-40.0 ng/mLOperator ID - DB Lab Interpretation (test Normal code = 00829-5) [facility], 80-[id number] 11:10:06 Test Item Value Reference Range Interpretation Comments Vitamin D 25-Hydroxy 16.7 ng/mL 6.6-49.9 (test code = 2764) BRANDI (test code = BRANDI) Effective 01/12/2017: Reference Range ChangeNew: 6.6-49.9 ng/mL Previous: 13.0-47.8 ng/mL Recommended Vitamin D Target Range: 30.0-40.0 ng/mLOperator ID - DB Lab Interpretation (test Normal code = 71439-0) [facility], 05-Qhjjrtn3313-79-07 11:10:06 Test Item Value Reference Range Interpretation Comments Vitamin D 25-Hydroxy 16.7 ng/mL 6.6-49.9 (test code = 2764) BRANDI (test code = BRANDI) Effective 01/12/2017: Reference Range ChangeNew: 6.6-49.9 ng/mL Previous: 13.0-47.8 ng/mL Recommended Vitamin D Target Range: 30.0-40.0 ng/mLOperator ID - DB Lab Interpretation (test Normal code = 96625-9) [facility], 39-Lwyftlj6622-24-07 11:10:06 Test Item Value Reference Range Interpretation Comments Vitamin D 25-Hydroxy 16.7 ng/mL 6.6-49.9 (test code = 2764) BRANDI (test code = BRANDI) Effective 01/12/2017: Reference Range ChangeNew: 6.6-49.9 ng/mL Previous: 13.0-47.8 ng/mL Recommended Vitamin D Target Range: 30.0-40.0 ng/mLOperator ID - DB Lab Interpretation (test Normal code = 50495-1) [facility], 31-Vfnwjyc1762-80-07 11:10:06 Test Item Value Reference Range Interpretation Comments Vitamin D 25-Hydroxy 16.7 ng/mL 6.6-49.9 (test code = 2764) BRANDI (test code = BRANDI) Effective 01/12/2017: Reference Range ChangeNew: 6.6-49.9 ng/mL Previous: 13.0-47.8 ng/mL Recommended Vitamin D Target Range: 30.0-40.0 ng/mLOperator ID - DB Lab Interpretation (test Normal code = 09235-2) [facility], 15-Kguvqht8799-19-07 11:10:06 Test Item Value Reference Range Interpretation Comments Vitamin D 25-Hydroxy 16.7 ng/mL 6.6-49.9 (test code = 2764) BRANDI (test code = BRANDI) Effective 01/12/2017: Reference Range ChangeNew: 6.6-49.9 ng/mL Previous: 13.0-47.8 ng/mL Recommended Vitamin D Target Range: 30.0-40.0 ng/mLOperator ID - DB Lab Interpretation (test Normal code = 29966-3) [facility], 07-Pyydwjx3681-80-07 11:10:06 Test Item Value Reference Range Interpretation Comments Vitamin D 25-Hydroxy 16.7 ng/mL 6.6-49.9 (test code = 2764) BRANDI (test code = BRANDI) Effective 01/12/2017: Reference Range ChangeNew: 6.6-49.9 ng/mL Previous: 13.0-47.8 ng/mL Recommended Vitamin D Target Range: 30.0-40.0 ng/mLOperator ID - DB Lab Interpretation (test Normal code = 86488-0) [facility], 41-Mlmrdjd2724-32-07 11:10:06 Test Item Value Reference Range Interpretation Comments Vitamin D 25-Hydroxy 16.7 ng/mL 6.6-49.9 (test code = 2764) BRANDI (test code = BRANDI) Effective 01/12/2017: Reference Range ChangeNew: 6.6-49.9 ng/mL Previous: 13.0-47.8 ng/mL Recommended Vitamin D Target Range: 30.0-40.0 ng/mLOperator ID - DB Lab Interpretation (test Normal code = 12377-4) [facility], 42-Cbzirpr9355-81-07 11:10:06 Test Item Value Reference Range Interpretation Comments Vitamin D 25-Hydroxy 16.7 ng/mL 6.6-49.9 (test code = 2764) BRANDI (test code = BRANDI) Effective 01/12/2017: Reference Range ChangeNew: 6.6-49.9 ng/mL Previous: 13.0-47.8 ng/mL Recommended Vitamin D Target Range: 30.0-40.0 ng/mLOperator ID - DB Lab Interpretation (test Normal code = 36001-6) [facility], 31-Inytkkh8940-90-07 11:10:06 Test Item Value Reference Range Interpretation Comments Vitamin D 25-Hydroxy 16.7 ng/mL 6.6-49.9 (test code = 1989-3) BRANDI (test code = BRANDI) Effective 01/12/2017: Reference Range ChangeNew: 6.6-49.9 ng/mL Previous: 13.0-47.8 ng/mL Recommended Vitamin D Target Range: 30.0-40.0 ng/mLOperator ID - DB Lab Interpretation (test Normal code = 62909-2) [facility], 98-Aicysji6522-47-07 11:10:06 Test Item Value Reference Range Interpretation Comments Vitamin D 25-Hydroxy 16.7 ng/mL 6.6-49.9 (test code = 1989-) BRANDI (test code = BRANDI) Effective 01/12/2017: Reference Range ChangeNew: 6.6-49.9 ng/mL Previous: 13.0-47.8 ng/mL Recommended Vitamin D Target Range: 30.0-40.0 ng/mLOperator ID - DB Lab Interpretation (test Normal code = 95279-2) [facility], 03-Ncimogc8656-61-07 11:10:06 Test Item Value Reference Range Interpretation Comments Vitamin D 25-Hydroxy 16.7 ng/mL 6.6-49.9 (test code = 2764) BRANDI (test code = BRANDI) Effective 01/12/2017: Reference Range ChangeNew: 6.6-49.9 ng/mL Previous: 13.0-47.8 ng/mL Recommended Vitamin D Target Range: 30.0-40.0 ng/mLOperator ID - DB Lab Interpretation (test Normal code = 72339-7) [facility], 86-Dndywdx4344-98-07 11:10:06 Test Item Value Reference Range Interpretation Comments Vitamin D 25-Hydroxy 16.7 ng/mL 6.6-49.9 (test code = 2764) BRANDI (test code = BRANDI) Effective 01/12/2017: Reference Range ChangeNew: 6.6-49.9 ng/mL Previous: 13.0-47.8 ng/mL Recommended Vitamin D Target Range: 30.0-40.0 ng/mLOperator ID - DB Lab Interpretation (test Normal code = 84213-8) [facility], 95-Iwmuslf6417-42-07 11:10:06 Test Item Value Reference Range Interpretation Comments Vitamin D 25-Hydroxy 16.7 ng/mL 6.6-49.9 (test code = 1989-3) BRANDI (test code = BRANDI) Effective 01/12/2017: Reference Range ChangeNew: 6.6-49.9 ng/mL Previous: 13.0-47.8 ng/mL Recommended Vitamin D Target Range: 30.0-40.0 ng/mLOperator ID - DB Lab Interpretation (test Normal code = 94336-2) [facility], 76-IHWVFRX2192-11-07 11:10:06 Test Item Value Reference Range Interpretation Comments VITAMIN D 25-OH (BEAKER) (test 16.7 ng/mL 6.6-49.9 code = 2764) Effective 01/12/2017: Reference Range ChangeNew: 6.6-49.9 ng/mL Previous: 13.0- 47.8 ng/mLRecommendedVitamin D Target Range: 30.0-40.0 ng/mLOperator ID - DBPTH, [id number] 11:05:08 Test Item Value Reference Range Interpretation Comments PTH (test code = 2731-8) 449.7 pg/mL 8.5-72.5 H BRANDI (test code = BRANDI) Bird Raiser ID - ADMIN Lab Interpretation (test Abnormal code = 58106-8) [facility], [id number] 11:05:08 Test Item Value Reference Range Interpretation Comments PTH (test code = 2731-8) 449.7 pg/mL 8.5-72.5 H BRANDI (test code = BRANDI) Bird Raiser ID - ADMIN Lab Interpretation (test Abnormal code = 95894-7) [facility], [id number] 11:05:08 Test Item Value Reference Range Interpretation Comments PTH (test code = 2731-8) 449.7 pg/mL 8.5-72.5 H BRANDI (test code = BRANDI) Bird Raiser ID - ADMIN Lab Interpretation (test Abnormal code = 75686-3) [facility], [id number] 11:05:08 Test Item Value Reference Range Interpretation Comments PTH (test code = 2731-8) 449.7 pg/mL 8.5-72.5 H BRANDI (test code = BRANDI) Bird Raiser ID - ADMIN Lab Interpretation (test Abnormal code = 29351-8) [facility], [id number] 11:05:08 Test Item Value Reference Range Interpretation Comments PTH (test code = 2731-8) 449.7 pg/mL 8.5-72.5 H BRANDI (test code = BRANDI) Bird Raiser ID - ADMIN Lab Interpretation (test Abnormal code = 99273-0) [facility], [id number] 11:05:08 Test Item Value Reference Range Interpretation Comments PTH (test code = 2731-8) 449.7 pg/mL 8.5-72.5 H BRANDI (test code = BRANDI) Bird Raiser ID - ADMIN Lab Interpretation (test Abnormal code = 72076-6) [facility], [id number] 11:05:08 Test Item Value Reference Range Interpretation Comments PTH (test code = 2731-8) 449.7 pg/mL 8.5-72.5 H BRANDI (test code = BRANDI) Bird Raiser ID - ADMIN Lab Interpretation (test Abnormal code = 06682-5) [facility], [id number] 11:05:08 Test Item Value Reference Range Interpretation Comments PTH (test code = 2731-8) 449.7 pg/mL 8.5-72.5 H BRANDI (test code = BRANDI) Bird Raiser ID - ADMIN Lab Interpretation (test Abnormal code = 21071-1) [facility], [id number] 11:05:08 Test Item Value Reference Range Interpretation Comments PTH (test code = 2731-8) 449.7 pg/mL 8.5-72.5 H BRANDI (test code = BRANDI) Bird Raiser ID - ADMIN Lab Interpretation (test Abnormal code = 81551-9) [facility], [id number] 11:05:08 Test Item Value Reference Range Interpretation Comments PTH (test code = 2731-8) 449.7 pg/mL 8.5-72.5 H BRANDI (test code = BRANDI) Bird Raiser ID - ADMIN Lab Interpretation (test Abnormal code = 81942-4) [facility], [id number] 11:05:08 Test Item Value Reference Range Interpretation Comments PTH (test code = 2731-8) 449.7 pg/mL 8.5-72.5 H BRANDI (test code = BRANDI) Bird Raiser ID - ADMIN Lab Interpretation (test Abnormal code = 28895-0) [facility], [id number] 11:05:08 Test Item Value Reference Range Interpretation Comments PTH (test code = 2731-8) 449.7 pg/mL 8.5-72.5 H BRANDI (test code = BRANDI) Bird Raiser ID - ADMIN Lab Interpretation (test Abnormal code = 36449-2) [facility], [id number] 11:05:08 Test Item Value Reference Range Interpretation Comments PTH (test code = 2731-8) 449.7 pg/mL 8.5-72.5 H BRANDI (test code = BRANDI) Bird Raiser ID - ADMIN Lab Interpretation (test Abnormal code = 17767-1) [facility], [id number] 11:05:08 Test Item Value Reference Range Interpretation Comments PTH (test code = 2731-8) 449.7 pg/mL 8.5-72.5 H BRANDI (test code = BRANDI) Bird Raiser ID - ADMIN Lab Interpretation (test Abnormal code = 94232-2) [facility], [id number] 11:05:08 Test Item Value Reference Range Interpretation Comments PTH (test code = 2731-8) 449.7 pg/mL 8.5-72.5 H BRANDI (test code = BRANDI) Bird Raiser ID - ADMIN Lab Interpretation (test Abnormal code = 09083-8) [facility], [id number] 11:05:08 Test Item Value Reference Range Interpretation Comments PTH (test code = 2731-8) 449.7 pg/mL 8.5-72.5 H BRANDI (test code = BRANDI) Bird Raiser ID - ADMIN Lab Interpretation (test Abnormal code = 84254-3) [facility], [id number] 11:05:08 Test Item Value Reference Range Interpretation Comments PTH (test code = 2731-8) 449.7 pg/mL 8.5-72.5 H BRANDI (test code = BRANDI) Bird Raiser ID - ADMIN Lab Interpretation (test Abnormal code = 50371-8) [facility] [id number] 11:05:08 Test Item Value Reference Range Interpretation Comments PARATHYROID HORMONE INTACT 449.7 pg/mL 8.5-72.5 H (BEAKER) (test code = 577) Bird Raiser ID - [id number] 09:50:35 Test Item Value Reference Range Interpretation Comments FERRITIN (BEAKER) (test code = 926.02 ng/mL 5.00-275.00 H 361) Bird Raiser ID - ADMINIRON, TIBC, % SAT. (WITHOUT FERRITIN)2021-06-08 09:30:51 Test Item Value Reference Range Interpretation Comments IRON (BEAKER) (test code = 547) 110.0 ug/dL 40.0-160.0 TOTAL IRON BINDING CAPACITY 135 ug/dL 250-450 L (BEAKER) (test code = 769) IRON % SATURATION (2) (BEAKER) 81 % 20-55 H (test code = 2590) Bird Raiser ID - ADMINPOCT-GLUCOSE [id number] 07:11:26 Test Item Value Reference Range Interpretation Comments POC-GLUCOSE METER 199 mg/dL 70-110 H : TESTED A T [facility] 6720 (BEAKER) (test code = [place]MO [place], 1538) [address]: Bird Raiser/Techni kelle ID = [id number] for Tavia Bruce Vitamin [id number] 06:28:47 Test Item Value Reference Range Interpretation Comments Vitamin B12 (test code = 1626 pg/mL 213-816 H 2132-9) BRANDI (test code = BRANDI) Bird Raiser ID - ADMIN Lab Interpretation (test Abnormal code = 39537-5) [facility] [id number] 06:28:47 Test Item Value Reference Range Interpretation Comments Vitamin B12 (test code = 1626 pg/mL 213-816 H 2132-9) BRANDI (test code = BRANDI) Bird Raiser ID - ADMIN Lab Interpretation (test Abnormal code = 70584-4) [facility] [id number] 06:28:47 Test Item Value Reference Range Interpretation Comments Vitamin B12 (test code = 1626 pg/mL 213-816 H 2132-9) BRANDI (test code = BRANDI) Bird Raiser ID - ADMIN Lab Interpretation (test Abnormal code = 88073-8) [facility] [id number] 06:28:47 Test Item Value Reference Range Interpretation Comments Vitamin B12 (test code = 1626 pg/mL 213-816 H 2132-9) BRANDI (test code = BRANDI) Bird Raiser ID - ADMIN Lab Interpretation (test Abnormal code = 74893-3) [facility] [id number] 06:28:47 Test Item Value Reference Range Interpretation Comments Vitamin B12 (test code = 1626 pg/mL 213-816 H 2132-9) BRANDI (test code = BRANDI) Bird Raiser ID - ADMIN Lab Interpretation (test Abnormal code = 04379-3) [facility] [id number] 06:28:47 Test Item Value Reference Range Interpretation Comments Vitamin B12 (test code = 1626 pg/mL 213-816 H 2132-9) BRANDI (test code = BRANDI) Bird Raiser ID - ADMIN Lab Interpretation (test Abnormal code = 53242-2) [facility] [id number] 06:28:47 Test Item Value Reference Range Interpretation Comments Vitamin B12 (test code = 1626 pg/mL 213-816 H 2132-9) BRANDI (test code = BRANDI) Bird Raiser ID - ADMIN Lab Interpretation (test Abnormal code = 43078-3) [facility] [id number] 06:28:47 Test Item Value Reference Range Interpretation Comments Vitamin B12 (test code = 1626 pg/mL 213-816 H 2132-9) BRANDI (test code = BRANDI) Bird Raiser ID - ADMIN Lab Interpretation (test Abnormal code = 60117-2) [facility] [id number] 06:28:47 Test Item Value Reference Range Interpretation Comments Vitamin B12 (test code = 1626 pg/mL 213-816 H 2132-9) BRANDI (test code = BRANDI) Bird Raiser ID - ADMIN Lab Interpretation (test Abnormal code = 11230-6) [facility] [id number] 06:28:47 Test Item Value Reference Range Interpretation Comments Vitamin B12 (test code = 1626 pg/mL 213-816 H 2132-9) BRANDI (test code = BRANDI) Bird Raiser ID - ADMIN Lab Interpretation (test Abnormal code = 31875-0) [facility] [id number] 06:28:47 Test Item Value Reference Range Interpretation Comments Vitamin B12 (test code = 1626 pg/mL 213-816 H 2132-9) BRANDI (test code = BRANDI) Bird Raiser ID - ADMIN Lab Interpretation (test Abnormal code = 96751-5) [facility] [id number] 06:28:47 Test Item Value Reference Range Interpretation Comments Vitamin B12 (test code = 1626 pg/mL 213-816 H 2132-9) BRANDI (test code = BRANDI) Bird Raiser ID - ADMIN Lab Interpretation (test Abnormal code = 57842-5) [facility] [id number] 06:28:47 Test Item Value Reference Range Interpretation Comments Vitamin B12 (test code = 1626 pg/mL 213-816 H 2132-9) BRANDI (test code = BRANDI) Bird Raiser ID - ADMIN Lab Interpretation (test Abnormal code = 37915-2) [facility] [id number] 06:28:47 Test Item Value Reference Range Interpretation Comments Vitamin B12 (test code = 1626 pg/mL 213-816 H 2132-9) BRANDI (test code = BRANDI) Bird Raiser ID - ADMIN Lab Interpretation (test Abnormal code = 58047-1) [facility] [id number] 06:28:47 Test Item Value Reference Range Interpretation Comments Vitamin B12 (test code = 1626 pg/mL 213-816 H 2132-9) BRANDI (test code = BRANDI) Bird Raiser ID - ADMIN Lab Interpretation (test Abnormal code = 87091-9) [facility] [id number] 06:28:47 Test Item Value Reference Range Interpretation Comments Vitamin B12 (test code = 1626 pg/mL 213-816 H 2132-9) BRANDI (test code = BRANDI) Bird Raiser ID - ADMIN Lab Interpretation (test Abnormal code = 96821-5) [facility] [id number] 06:28:47 Test Item Value Reference Range Interpretation Comments Vitamin B12 (test code = 1626 pg/mL 213-816 H 2132-9) BRANDI (test code = BRANDI) Bird Raiser ID - ADMIN Lab Interpretation (test Abnormal code = 55407-2) [facility] [id number] 06:28:47 Test Item Value Reference Range Interpretation Comments VITAMIN B12 (BEAKER) (test code = 1626 pg/mL 213-816 H 774) Bird Raiser ID - ADMINBASIC METABOLIC [id number] 06:22:27 Test Item Value Reference Range Interpretation [...] S NOT APPLICABLE FOR DIALYSIS PATIEN TS. Bird Raiser ID - [id number] 06:08:16 Test Item Value Reference Range Interpretation Comments MAGNESIUM (BEAKER) (test code = 2.3 mg/dL 1.6-2.6 627) Bird Raiser ID - [id number] 06:08:16 Test Item Value Reference Range Interpretation Comments PHOSPHORUS (BEAKER) (test code = 5.6 mg/dL 2.3-4.7 H 604) Bird Raiser ID - DBPROTHROMBIN TIME/[id number] 05:55:08 Test Item Value Reference Range Interpretation Comments PROTIME (BEAKER) 14.2 seconds 11.9-14.2 (test code = 759) INR (BEAKER) (test 1.12 See_Comment [Automat ed message] code = 370) The system [employer] generated this result transmitted ref erence range: <=5.90. The reference range was not used to int erpret this result as normal/abnormal . RECOMMENDED COUMADIN/WARFARIN INR THERAPY RANGESSTANDARD DOSE: 2.0 - 3.0 Includes: PROPHYLAXIS for venous thrombosis, systemic embolization; TREATMENT for venous thrombosis and/or pulmonary embolus.HIGH RISK: Target INR is 2.5-3.5 for patients with mechanical heart valves.CBC W/PLT COUNT & AUTO [id number] 05:42:08 Test Item Value Reference Range Interpretation [...] = 2801) RAD, CHEST, 1 VIEW, NON [id number] 02:35:00Reason for exam:->shortness of breathShould this be performed at the bedside?->Yes HERRICK [...] [place] MDReport Verified Date/Time: 06/08/2021 02:35:39 POCT-GLUCOSE [id number] 23:26:33 Test Item Value Reference Range Interpretation Comments POC-GLUCOSE METER 279 mg/dL 70-110 H : TESTED A T [facility] 6720 (BEAKER) (test code = YUDY [place]ITE [place], 1538) [address]: Bird Raiser/Techni kelle ID = [id number] for Tavia Bruce COMPREHENSIVE METABOLIC [id number] 22:28:11 Test Item Value Reference Range Interpretation [...] S NOT APPLICABLE FOR DIALYSIS PATIEN TS. Bird Raiser ID - DBVancomycin level, [id number] 22:19:31 Test Item Value Reference Range Interpretation Comments Vancomycin Rm (test 16.1 ug/mL code = 10042-0) BRANDI (test code = Reference Range: No BRANDI) NormalsOperator ID - [facility], [id number] 22:19:31 Test Item Value Reference Range Interpretation Comments Vancomycin Rm (test 16.1 ug/mL code = 83772-0) BRANDI (test code = Reference Range: No BRANDI) NormalsOperator ID - [facility], [id number] 22:19:31 Test Item Value Reference Range Interpretation Comments Vancomycin Rm (test 16.1 ug/mL code = 92416-4) BRANDI (test code = Reference Range: No BRANDI) NormalsOperator ID - DB [facility], [id number] 22:19:31 Test Item Value Reference Range Interpretation Comments Vancomycin Rm (test 16.1 ug/mL code = 56474-6) BRANDI (test code = Reference Range: No BRANDI) NormalsOperator ID - DB [facility], [id number] 22:19:31 Test Item Value Reference Range Interpretation Comments Vancomycin Rm (test 16.1 ug/mL code = 57715-4) BRANDI (test code = Reference Range: No BRANDI) NormalsOperator ID - DB [facility], [id number] 22:19:31 Test Item Value Reference Range Interpretation Comments Vancomycin Rm (test 16.1 ug/mL code = 68595-7) BRANDI (test code = Reference Range: No BRANDI) NormalsOperator ID - DB [facility], [id number] 22:19:31 Test Item Value Reference Range Interpretation Comments Vancomycin Rm (test 16.1 ug/mL code = 54157-2) BRANDI (test code = Reference Range: No BRANDI) NormalsOperator ID - DB [facility], [id number] 22:19:31 Test Item Value Reference Range Interpretation Comments Vancomycin Rm (test 16.1 ug/mL code = 48902-9) BRANDI (test code = Reference Range: No BRANDI) NormalsOperator ID - DB [facility], [id number] 22:19:31 Test Item Value Reference Range Interpretation Comments Vancomycin Rm (test 16.1 ug/mL code = 40782-1) BRANDI (test code = Reference Range: No BRANDI) NormalsOperator ID - DB [facility], [id number] 22:19:31 Test Item Value Reference Range Interpretation Comments Vancomycin Rm (test 16.1 ug/mL code = 47305-6) BRANDI (test code = Reference Range: No BRANDI) NormalsOperator ID - DB [facility], [id number] 22:19:31 Test Item Value Reference Range Interpretation Comments Vancomycin Rm (test 16.1 ug/mL code = 04363-6) BRANDI (test code = Reference Range: No BRANDI) NormalsOperator ID - DB [facility], [id number] 22:19:31 Test Item Value Reference Range Interpretation Comments Vancomycin Rm (test 16.1 ug/mL code = 78779-8) BRANDI (test code = Reference Range: No BRANDI) NormalsOperator ID - DB [facility], [id number] 22:19:31 Test Item Value Reference Range Interpretation Comments Vancomycin Rm (test 16.1 ug/mL code = 95164-0) BRANDI (test code = Reference Range: No BRANDI) NormalsOperator ID - DB [facility], [id number] 22:19:31 Test Item Value Reference Range Interpretation Comments Vancomycin Rm (test 16.1 ug/mL code = 75448-8) BRANDI (test code = Reference Range: No BRANDI) NormalsOperator ID - DB [facility], [id number] 22:19:31 Test Item Value Reference Range Interpretation Comments Vancomycin Rm (test 16.1 ug/mL code = 05483-6) BRANDI (test code = Reference Range: No BRANDI) NormalsOperator ID - DB [facility], [id number] 22:19:31 Test Item Value Reference Range Interpretation Comments Vancomycin Rm (test 16.1 ug/mL code = 48553-3) BRANDI (test code = Reference Range: No BRANDI) NormalsOperator ID - DB [facility], [id number] 22:19:31 Test Item Value Reference Range Interpretation Comments Vancomycin Rm (test 16.1 ug/mL code = 38915-7) BRANDI (test code = Reference Range: No BRANDI) NormalsOperator ID - DB [facility], [id number] 22:19:31 Test Item Value Reference Range Interpretation Comments VANCOMYCIN RANDOM (BEAKER) (test 16.1 ug/mL code = 523) Reference Range: No NormalsOperator ID - DBCBC W/PLT COUNT & AUTO [id number] 22:05:27 Test Item Value Reference Range Interpretation [...] Interpretation Comments POCT GLU (test code = 6706292002) 129 mg/dL 70-110 H Lab Interpretation (test code = Abnormal 70200-3) [facility] GLUCOSE (AUTOMATED)2021-05-22 17:41:02 Test Item Value Reference Range Interpretation Comments POCT GLU (test code = 6746432066) 120 mg/dL 70-110 H Lab Interpretation (test code = Abnormal 84046-3) [facility] GLUCOSE (AUTOMATED)2021-05-22 13:46:20 Test Item Value Reference Range Interpretation Comments POCT GLU (test code = 5827430265) 174 mg/dL 70-110 H Lab Interpretation (test code = Abnormal 41092-7) [facility] METABOLIC PANEL (NA, K, CL, CO2, GLUCOSE, BUN, CREATININE, CA)2021-05-22 10:34:14 Test Item Value Reference Range Interpretation Comments NA (test code = 128 mmol/L 135-145 L 4547895754) K (test code = 5.2 mmol/L 3.5-5.0 H 0208111741) CL (test code = 95 mmol/L 98-108 L 7016332425) CO2 TOTAL (test code = 24 mmol/L 23-31 2909402342) AGAP (test code = 2-16 8775763254) BUN (test code = 43 mg/dL 7-23 H 0412906885) GLUCOSE (test code = 182 mg/dL 70-110 H 2750291503) CREATININE (test code = 5.93 mg/dL 0.50-1.04 H 1591394605) CALCIUM (test code = 8.0 mg/dL 8.6-10.6 L 0256840663) eGFR (test code = mL/min/1.73m2 9476344576) BRANDI (test code = BRANDI) Association of [...] tests). Lab Interpretation Abnormal (test code = 57543-0) [facility] WITH [id number] 10:25:51 Test Item Value Reference Range Interpretation Comments WBC (test code = See_Comment [Automated 4607-2) message] The sy stem which generated this result transmitted reference range : 4.30 - 11.10 10*3/?L. The reference range was not used to interpret this result as normal/abnormal . RBC (test code = See_Comment L [Automated 699-8) message] The sy stem which generated this [...] (test code = 50.7 fL 39.0-49.9 H 37001-4) RDW-CV (test code = 14.6 % 12.0-15.5 788-0) PLT (test code = See_Comment L [Automated 777-3) message] The sy stem which generated this result transmitted reference range : 166 - 358 10*3/ ?L. The reference r alba was not used to interpret this result as normal/abnormal . MPV (test code = 11.2 fL 9.5-12.9 85899-5) NRBC/100 WBC (test See_Comment [Automat ed code = 1387678897) message] The system which generated this result transmitted reference range : 0.0 - 10.0 /100 WBCs. The refer ence range was not u sed to interpret th is result as normal/abnormal . NRBC x10^3 (test code <0.01 See_Comment [Auto mated = 9404769947) message] The s ystem which generated this result transmitted reference range : 10*3/?L. The reference range was not used to interpret this result as normal/abnormal . GRAN MAT (NEUT) % 75.4 % (test code = 770-8) IMM GRAN % (test code 0.70 % = 3800010513) LYMPH % (test code = 12.5 % 736-9) MONO % (test code = 10.3 % 5905-5) EOS % (test code = 0.8 % 713-8) BASO % (test code = 0.3 % 706-2) GRAN MAT x10^3(ANC) 4.54 10*3/uL 1.88-7.09 (test code = 6020741768) IMM GRAN x10^3 (test 0.04 10*3/uL 0.00-0.06 code = 0015056761) LYMPH x10^3 (test code 0.75 10*3/uL 1.32-3.29 L = 731-0) MONO x10^3 (test code 0.62 10*3/uL 0.33-0.92 = 742-7) EOS x10^3 (test code = 0.05 10*3/uL 0.03-0.39 711-2) BASO x10^3 (test code <0.03 0.01-0.07 = 704-7) Lab Interpretation Abnormal (test code = 30165-0) [facility] [id number] 05:24:06 Test Item Value Reference Range Interpretation Comments NT-proBNP (test code 054285 pg/mL See_Comment H [Autom ated = 2720578854) message] The system which generated this result transmitted reference range : <=125. The reference range was not used to interpret this result as normal/abnormal . BRANDI (test code = BRANDI) Biotin has been reported to cause a negative bias, interpret results relative to patient's use of biotin. Lab Interpretation Abnormal (test code = 83337-7) [facility]Glucose, [id number] 04:46:54 Test Item Value Reference Range Interpretation Comments GLUCOSE (test code = 0764724123) 107 mg/dL 70-110 Lab Interpretation (test code = Normal 32450-7) [facility] HospitalProtein Total [id number] 04:46:34 Test Item Value Reference Range Interpretation Comments T PROTEIN (test code = 5289032329) 6.1 g/dL 6.3-8.2 L Lab Interpretation (test code = Abnormal 06245-9) [facility] HospitalLACTATE [id number] 04:46:18 Test Item Value Reference Range Interpretation Comments LDH (test code = 5713858845) 311 U/L 300-600 Lab Interpretation (test code = Normal 18273-0) [facility] HospitalTROPONIN [id number] 00:24:29 Test Item Value Reference Interpretation Comments Range TROPONIN I (test 0.084 ng/mL See_Comment H [Automated code = 1196822652) message] The system which generated this result [...] biotin. Lab Interpretation Abnormal (test code = 89291-1) [facility] HospitalCyto Pleural [id number] 23:21:29 Test Item Value Reference Range Interpretation Comments Case Report (test code = Non-Gynecologic 0575366715) Cytology ?Case: [id number] ?Authorizing Provider: ?Candido Robison DO ?Collected: ? 05/20/2021 1604 ?Ordering Location: ? ? [facility] Medicine Surgery Unit ?Received: ?05/20/2021 1631 ?Pathologist: ? Mariana, ? MD Duc ?Specimen: ? ?PLEURAL, RIGHT ? Final Diagnosis (test d8nmxFPrMWLnz1rfXYCvx code = 8269776133) GFuZzEwMzNcZnRuYmpcdW MxIHtccnRmMVxlcGljOTY lOBtfcuZaPTHbmIUzL5Cc kzpbUSeoOJ8fDK9byFwat TPypWKnEPZwPcPpi8qyr2 01bKJpk6guYCXKgseiqXg 8eJkkN57gz6I5OttxB08g bKNsZRD7ZBXfQYMntOGzL GIvWSV4MBSkqGXdZ8wfCI WvKZ1kjacaPSxnVKkoUWE bdCR6BAKipQXnF3AtXRJz CAvhLFWkzws6IzUiNb2tj GVyeTcyMFxwYXJkXHBsYW luXGJcZnMyMFxwYXIgQS4 gIFBMRVVSQSwgUklHSFQ7 CRBBV7KTB1XQAGFHDQQiA kbBWOB4SNNujtExPTCiUS 1aUxLDMIAWPvVzYd7GPK5 BTElHTkFOVCBDRUxMUyBc GeFvEFVUANGUL39HFS7GK VxwYXJccGFyIFBhdWwgWW 08pwcbTP6HTLTiaFZhzST mtAluni30FAP0CWYdEhS4 LzIwMjJccHJvdGVjdDAgX HBsYWluXGZzMjAgICAyOj R7ATZBRDQpveehUKK3x3w ydGYxXHNzdGVjZjIyMDAw MKZut6jxWTDigOVlEeKmW zNcZnRuYmpcdWMxXGRlZm Fvs4twx105wWDhj8rnDTZ rCbA0hAVrOOZslZdiarp9 eLizUdPyNWEit5ruteDuL mNoYXJzZXQwIEFyaWFsO3 48OPAwLJywv5lzq5SmFPQ jjMBmr8J2CIWSAHjqBlQp O562d4vnq5kaxxFjpLQ6M DFyZEV1OSoaceFwzeE7OQ otcLPsWcV2OFtopjTqSKu ksyBdroQzXeb7OTLkH079 ZJI5iFxft4nwTXZ2NLAhH QSuUjnvKt4xxAVxY423QZ SzZFGVMHSuhFq1IUMderR cysAliEDOp439Y178h4tc KBPhogKpoVsWkuzuv5vhB 319XHBhcGVydzEyMjQwXH XmyULzzVK4MZMwUB5hxzv zIGouAInuMEMbtyA2BFBh rDBeE8RbCGWdUN2yundyZ GM3ZDhnYOEjUVG4NyOuKT Fta8Yiybh1VqDpru4jze1 9DLU9n3HixLkiIEQ1YSD7 PnTiPb5eoOYvKARtUW8xF aNtlLYuCKYsxk61jSxjPM jopbTtwS2gDgTeMWUqxEH kCDKlST1kxZMoIAQpzG4o cmxjXHBnYnJkcmhlYWRcc VjjrrCySc6giTvjWZY6HA imF4bshS3xJzV8RFsuK9s wrV7xLZe2NYszoEA8RHTm lP1tJZ1zjkpxa1bxFQhrM ChfTUWeajI9mdS9QGBnyS AcP8NndA1pVPMhWX5xxxf ml1ixOSG6ZYtgKSSzBLJ4 NtWqHXXxi1Sdpnt6PlQtp 8PlpWUoGLovR71pn575UI OfzuKuM5pfjPFcdtensVI hhhptZJtdofD8ILIpLBKo YWluXGYxXGZzMjBcbGFuZ zEwMzNcaGljaFxmMVxkYm TuTYQlQWtiF0hmXbEhH6R yXGZzMjBccGFyIEkgaGF2 AJCsIFKla81wmGj4JSFdm regw0TfFTSauJGzjERgqQ 7ommNgy8jaDDZeBJLxEHL kK8PsAHB9pYOaLSGzgAFj dUI1GW6smpLuJA6yDQYgA nkgcmVzaWRlbnRzLCBmZW esf8lxOI7fAIZykIosaL6 clAC6YPNht3jklXYjcBAc o2tpk0LjoaJgIViuRFSpQ EklOHYvGEDfWX8uKFIxnT VwghMdz1H8TfsrsYSxrff rWesgnvL3SGxjkqyeDKJg EDinO2ijLnDjNOHqsLrnF hpsh8HhHGTfGRRkMwhmpJ FyfX0= Final Diagnosis Comment c8fuhOLyYHLqoTZ6CvMfJ (test code = 6954218321) ZDtl4ggq7VjyJHbuKSoCK kwsVPtmeCgtu67pND0jT9 9OA7oTLWnYoW0KWRukzX0 Off0AZLjOFWwhTAzG991m 0wsb4gaycLkbXP0cZceSM CncpvvVuJ6JAufVOSugse gWVe7ULrrHEWlxVD5OHTa nICoU6AhBGKxIO3fbbv1V YJ6FKoaGFHkSmU0MCBsaH BjXEFizRwwPEjtz350NED 5NwVvPDLiymIfhRzvfI7t ZnMyMCBTbWVhcnMgYXJlI YEnjLJcD0GltAOnFLTlKE 8xMZXyp1chmrDsHFUuFR4 jA43ypQBxx9YxEAxnVIkx J5AclKWaQR6gZFMoo53nD WYxVX2egrHxLySOwwXpRB viA42htrUiP0EmuKEtmNL lsnPaWhqmJG0yVZCqsw4= Clinical Information Clinical Hx: ESRD (test code = 3645763172) Gross Description (test h6ettFHvFIDmqEL3KkIqU code = 1309250723) BVfg5djj1RmvWIyiYIoOM rkuUEpseYlev95rHX5bB9 4GY5bFQZcSfD9ZQSnzlY3 Eds6VXLuRHIuhXDdV545b 4dew6ynxhQmpPY9oBfeXB YhoqcmExK4UYawYVMqspg mKTc7FKvsCZShsHH1IOCj cSRcC5AfJTHuRG2eaom5I OI4ZGpwNHLmNzB0VJOkxQ FgORYetFpcMAsal525VND 8NtNkVCQvxyQ3JYclFZRe S9OhG7EhIBogTBB2CZOgE CBcXHQgMSBcXGZsIFxcbm F7t1siCIPwoQLcANJ5WCk caWQgNTEwMDIgXFxkYiBP FfTnTuAaWSN2ICP4LRWsZ Vt7YOfhR6ZHPIWwFXY3LY JpWPx4XhQ5KBr9QHOUMk4 fANF3VMOfBMo3UHC0QHH4 NCBcXHQgMiBcXGZsIFxcZ iBBcmlhbCBcXGZzIDEwIF tchvC9CXMvBOhcDEJyEfP ccGFyXGZzMjJccGFyIEEx LiAgUExFVVJBLCBSSUdIV QlaRBjNTxWUFU1JCGOCNx BGTFVJRFxwYXIgUmVjZWl 0JDQhLjXkd4xjmEDwJRJg ZcriAL3rRZpgkBozwyCpf HVpZCBccGFyIFByZXBhcm VuKQEkj8mfOVNpXIytWJS hcGFuaWNvbGFvdSBjeXRv g2CqbvtaGN4xCJMrYh5aK P6wd1UpmBZzwLCup7Wlfb GsviGcMEFdkOhvsulvf9r spSfzi3MmoBAgCA74SSFe tJSeHGE1JT3ijCvkUHR0 Disclaimer (test code = h9bbxVKzDIOys1alLEPaz [id number]) GFuZzEwMzNcZnRuYmpcdW FuJGvtveCvSStfk5HgD3L yMjAwMFxhbnNpXGRlZmxh mspaLFFlRHT0koIkCBChG CppOEAuRQndRr6vfUOlaQ ztLeLeBHMpd6lbypGCYVz xNkLaI778EHSkOSwiq2dk x6MrJJGpwZKcf3C5BKIAp dkgnQe3yQzxD65kr0B4Qg wsT7pxVHIrIAYjM8ElNL6 hOIThTki4QPN7ALF0GTLi MQWkQ6HtCD9kNXOitISgM Vx2q9avlTazFGKmGEE3p0 pxLDlxomWpFQ4sxb6svQc 7c8mcyiGwBFWsTZOjzPDL ZJGqL2MarRdeWp2dcAh2x GzcPeomWCL8Iyw0OF1bwa 92ylk4xDgsRABahrubChW 9ZNxaEBZeyazgERq6JDso URDhsGZ2PSRtkERiQ4CcJ TLjNW5uahu2TUM7YNsnGP GkSnD3XXBpyNVyHNNhzJk gDKfwv860DTH5VnGbNM1u K6Qnp5R1tW8juXEyHLUoa AXbZxVpHEZfqy0qoNIkRF vgw4GxHST7xcT9sHHolLO pPDXvBS32Tuupp6TgZawm t7QrW92evDE5SEoca6lnW L2zXhS9goHcGFtnu0fsiV 1mBqJ8KBlgDF9tDU8hWUF seU7bmqhlGEFzOwOrnyad OMBxsDwwvpTbOn8xhIjoX UD7MMeiQ2vzhC7lWaN2XD ilI6kewW7uOLx6GAiaoMK 0GNXucT9jEY5pacast6qb YSusYQrbQVDgirE5woT0X FDsqXTjK5ReoA4xNTCcNO 3msblso3gfAOH9DWqzWFL xEAI1BpSfJKXte9Axnfo3 XtWof4NqzRWtTXevI97bd 521ECZqdqCiJ9pxcAZnll sqtTLnfxxdCTfshvS3ZUH dalBje0EkEBTpKEM8KXus YUcudQQfBOGmqYqra1evB 3RscGFyXHBsYWluXGYxXG ZzMjBcbGFuZzEwMzNcaGl jaFxmMVxkYmNoXGYxXGxv A9bvAnZjU2QuZCDhOcIee EMwM1lhGBnaaaEdCMSska KqmTB6WSjaQ0q7UBFlanR myWb1ueThVwWjGABuIIG5 LVvmzWVuXQYrt7Afjdhsi XFqKj6iiLAaFSAdkJ5lZJ FjAYVaCMcrVZ1rlXn8DOI TbIYwnSQlVzRGUXBvVI91 liWeGSKVkfhae6T7SPliL YDxe7XgmOPpP2rzf9CqLK Zrq12jMJ3ck2E4c9dzFSN 3BD9xh9KjLBFisSXkgKOc CVChf9Kooalty8ViZAKzy qCuk8MmTTDuvkZblXQeDS SaecLvzn6ypvJhWYLnJTR tK4GrlcznlSolflVfFTRd tc6fxkHxDNU2YFTGUNMeA RTpn3UozB8jkCIVFYR7vP Houw8wpeAFpLBlGUDqcc4 6IEJzON8eJ4juSTAsSJGn jmFkkAPuk1HaJEEgjLU3p UQvOZ9CFdOSm13iGEUsTR OXmpMaTGDjjScdhGK3cfN 6kS4uFLzXJVWvCli+IFRo JDRJXLEtED3rmdAkn1Ewc fElqSovDWQbzXNpt2NxdP Eue5KwvBblj0YkwLNdiVT mSM7wUGEhxrtkVFNrGBCP YvCAOLQxgjN2q3IpJNQsQ OYmSTA7yHrbbbd6MBRetT 5fMSLqY5lglcacOEjwFUZ gs1LxnW9ptRZZbFIey2Oq kPKacGMCmPPsCR9ineVuA DpZIJdOCDR1waYqPUUem3 XxURgsT9lqN33ctAkxnEh 4jIN5DWA9yF3fPbp+IFxw YXJccGFyIEFwcHJvcHJpY YWugEpwpxMdE7SgwgBmfC 5pxAQpicPtFS7zRE8bA3F 9hNHdIYNdzbRsu9asRNep dmUgYmVlbiByZXZpZXdlZ LAua8JxFRmqCQS6QRocxb BpbmNsdWRpbmcgSCZFLCB KuPLxjQWqPJD6DDhsenBl kiFgRB8ztP9hkQsnmY2pg ZTrmAJ9clmdSRVyTCZtpM xaJWAlOJ2weIUrRRWntjQ HyEqorZBabQ0vZ7MmIRLp PEPwsk6kWLQukP7yRLjvp 2VydmljZXMgYXJlIHBlcm Gwpx7aLXEboCIERN9GZYy haYOhu0TjqdTbL0cYNOT4 NUQwNjYwMjgxKSBleGNlc FEtDCGbct41GMIhxF8xjM noBXWsxG5lcO8enSdxsC6 pFlFaSfDhCCrbYO8lJIFt G3osfBJsOILdSHEmA7kxO jZkuS5jdMcbXGhcIhSnOs KpEPnsNID1dL== Embedded Images (test code = 2250749439) [facility]17:01 Test Item Value Reference Range Interpretation Comments POCT GLU (test code = 3039863068) 109 mg/dL 70-110 Lab Interpretation (test code = Normal 90085-2) [facility] [id number] 21:50:44 UNREMARKABLE LEUKOCYTES WITH ABSOLUTE LYMPHOPENIA. MODERATE NORMOCYTIC NORMOCHROMIC ANEMIA. MILD THROMBOCYTOPENIA.[facility] VITAMIN B12, [id number] 18:38:08 Test Item Value Reference Range Interpretation Comments VIT B12 (test code = >1000 240-930 H [id number]) BRANDI (test code = BRANDI) Biotin has been reported to cause a positive bias, interpret results relative to patient's use of biotin. Lab Interpretation (test Abnormal code = 97245-1) [facility] [id number] 17:51:01 Test Item Value Reference Range Interpretation Comments VIT D 25OH (test code = 24 ng/mL 25-80 L 37541-9) BRANDI (test code = BRANDI) Deficiency: <20 ng/mLInsufficiency: 20-24 ng/mLOptimal: 25-80 ng/mL Lab Interpretation (test Abnormal code = 33930-6) [facility] 17:42:20 Test Item Value Reference Range Interpretation Comments FOLATE SER (test code = 6.1 ng/mL 3.0-20.0 Biot in has been 9750599425) reported to cau se a positive bias, interpret resul ts relative to patient's use o f biotin. Lab Interpretation (test Normal code = 79590-0) [facility] GLUCOSE (AUTOMATED)2021-05-21 17:17:00 Test Item Value Reference Range Interpretation Comments POCT GLU (test code = 8931103176) 175 mg/dL 70-110 H Lab Interpretation (test code = Abnormal 87932-9) [facility] [id number] 14:52:32 Test Item Value Reference Interpretation Comments Range TROPONIN I (test 0.109 ng/mL See_Comment H [Automated code = 8762368970) message] The system which generated this result [...] biotin. Lab Interpretation Abnormal (test code = 59272-7) [facility] HospitalIR[facility] [id number] 14:49:31 Test Item Value Reference Range Interpretation Comments IRON (test code = 3094631711) 30 ug/dL 50-160 L TIBC (test code = 9460904162) 185 ug/dL 250-410 L % FE SAT (test code = 2025374866) 16 % 20-50 L Lab Interpretation (test code = Abnormal 27917-7) [facility]21-[facility]-21 14:06:00 Test Item Value Reference Range Interpretation Comments POCT GLU (test code = 1138384597) 191 mg/dL 70-110 H Lab Interpretation (test code = Abnormal 11550-5) [facility]FERRITIN [id number] 14:05:25 Test Item Value Reference Range Interpretation Comments FERRITIN (test code = 715.0 ng/mL 11.0-264.0 H 5666175335) BRANDI (test code = BRANDI) Biotin has been reported to cause a negative bias, interpret results relative to patient's use of biotin. Lab Interpretation (test Abnormal code = 07209-9) [facility]N-[facility]MINAL [id number] 13:56:37 Test Item Value Reference Range Interpretation Comments NT-proBNP (test code 501525 pg/mL See_Comment H [Autom ated = 0466563644) message] The system which generated this result transmitted reference range : <=125. The reference range was not used to interpret this result as normal/abnormal . BRANDI (test code = BRANDI) Biotin has been reported to cause a negative bias, interpret results relative to patient's use of biotin. Lab Interpretation Abnormal (test code = 70319-8) [facility]TR[facility] [id number] 13:43:04 Test Item Value Reference Interpretation Comments Range TROPONIN I (test 0.100 ng/mL See_Comment H [Automated code = 1356086853) message] The system which generated this result [...] biotin. Lab Interpretation Abnormal (test code = 41188-8) [facility] (78774[facility] (ALB,T.PRO,BILI T,BU/BC,ALT,AST,ALK PHOS)2021-05-21 13:30:03 Test Item Value Reference Range Interpretation Comments TOTAL BILI (test code = 0336445485) 0.7 mg/dL 0.1-1.1 BILI UNCON (test code = 4040307036) 0.0 mg/dL 0.1-1.1 L BILI CONJ (test code = 7114492156) 0.0 mg/dL 0.0-0.3 T PROTEIN (test code = 7253551545) 7.2 g/dL 6.3-8.2 ALBUMIN (test code = 3102035620) 3.5 g/dL 3.5-5.0 ALK PHOS (test code = 4111389436) 156 U/L 34-122 H ALTv (test code = 1742-6) 12 U/L 5-35 AST(SGOT) (test code = 6157733058) 28 U/L 13-40 Lab Interpretation (test code = Abnormal 45099-5) [facility] WITH [id number] 10:18:09 Test Item Value Reference Range Interpretation [...] (test code = 52.3 fL 39.0-49.9 H 39355-3) RDW-CV (test code = 14.9 % 12.0-15.5 788-0) PLT (test code = See_Comment L [Automated 777-3) message] The sy stem which generated this result transmitted reference range : 166 - 358 10*3/ ?L. The reference r alba was not used to interpret this result as normal/abnormal . MPV (test code = 11.0 fL 9.5-12.9 91252-8) NRBC/100 WBC (test See_Comment [Automat ed code = 4863585445) message] The system which generated this result transmitted reference range : 0.0 - 10.0 /100 WBCs. The refer ence range was not u sed to interpret th is result as normal/abnormal . NRBC x10^3 (test code <0.01 See_Comment [Auto mated = 8146563658) message] The s ystem which generated this result transmitted reference range : 10*3/?L. The reference range was not used to interpret this result as normal/abnormal . GRAN MAT (NEUT) % 74.4 % (test code = 770-8) IMM GRAN % (test code 0.30 % = 5792788401) LYMPH % (test code = 12.9 % 736-9) MONO % (test code = 11.2 % 5905-5) EOS % (test code = 0.7 % 713-8) BASO % (test code = 0.5 % 706-2) GRAN MAT x10^3(ANC) 4.40 10*3/uL 1.88-7.09 (test code = 3126205192) IMM GRAN x10^3 (test <0.03 0.00-0.06 code = 8399395895) LYMPH x10^3 (test code 0.76 10*3/uL 1.32-3.29 L = 731-0) MONO x10^3 (test code 0.66 10*3/uL 0.33-0.92 = 742-7) EOS x10^3 (test code = 0.04 10*3/uL 0.03-0.39 711-2) BASO x10^3 (test code 0.03 10*3/uL 0.01-0.07 = 704-7) Lab Interpretation Abnormal (test code = 63037-2) [facility] METABOLIC PANEL (NA, K, CL, CO2, GLUCOSE, BUN, CREATININE, CA)2021-05-21 10:17:29 Test Item Value Reference Range Interpretation Comments NA (test code = 132 mmol/L 135-145 L 0857536659) K (test code = 4.6 mmol/L 3.5-5.0 3694835859) CL (test code = 99 mmol/L 98-108 8501260763) CO2 TOTAL (test code = 27 mmol/L 23-31 8724223211) AGAP (test code = 2-16 0035664151) BUN (test code = 30 mg/dL 7-23 H 1517246088) GLUCOSE (test code = 129 mg/dL 70-110 H 3709599462) CREATININE (test code = 4.51 mg/dL 0.50-1.04 H 2258511147) CALCIUM (test code = 8.1 mg/dL 8.6-10.6 L 0093920533) eGFR (test code = mL/min/1.73m2 0380768012) BRANDI (test code = BRANDI) Association of [...] tests). Lab Interpretation Abnormal (test code = 49397-2) [facility] GLUCOSE (AUTOMATED)2021-05-21 02:24:31 Test Item Value Reference Range Interpretation Comments POCT GLU (test code = 1652635292) 123 mg/dL 70-110 H Lab Interpretation (test code = Abnormal 31856-1) [facility] GLUCOSE (AUTOMATED)2021-05-20 22:40:15 Test Item Value Reference Range Interpretation Comments POCT GLU (test code = 4027906358) 193 mg/dL 70-110 H Lab Interpretation (test code = Abnormal 94074-7) [facility] GLUCOSE (AUTOMATED)2021-05-20 17:24:39 Test Item Value Reference Range Interpretation Comments POCT GLU (test code = 5732465388) 129 mg/dL 70-110 H Lab Interpretation (test code = Abnormal 27784-4) [facility]AL [id number] 16:20:09 Test Item Value Reference Range Interpretation Comments NT-proBNP (test code 289809 pg/mL See_Comment H [Autom ated = 5996542316) message] The system which generated this result transmitted reference range : <=125. The reference range was not used to interpret this result as normal/abnormal . BRANDI (test code = BRANDI) Biotin has been reported to cause a negative bias, interpret results relative to patient's use of biotin. Lab Interpretation Abnormal (test code = 01738-8) [facility]2021-05-20 13:50:50 Test Item Value Reference Range Interpretation Comments POCT GLU (test code = 7907546109) 142 mg/dL 70-110 H Lab Interpretation (test code = Abnormal 31748-4) [facility] HospitalLAPRATE [id number] 11:29:26 Test Item Value Reference Range Interpretation Comments LDH (test code = 3330127379) 424 U/L 300-600 Slight hemolysis Lab Interpretation (test code Normal = 59448-1) [facility] HospitalBASI METABOLIC PANEL (NA, K, CL, CO2, GLUCOSE, BUN, CREATININE, CA)2021-05-20 11:28:05 Test Item Value Reference Range Interpretation Comments NA (test code = 132 mmol/L 135-145 L 2948388982) K (test code = 4.6 mmol/L 3.5-5.0 8358750855) CL (test code = 97 mmol/L 98-108 L 3793120084) CO2 TOTAL (test code = 26 mmol/L 23-31 7571529960) AGAP (test code = 2-16 6741093905) BUN (test code = 44 mg/dL 7-23 H 0975701846) GLUCOSE (test code = 161 mg/dL 70-110 H 3931031999) CREATININE (test code = 6.29 mg/dL 0.50-1.04 H 1904358840) CALCIUM (test code = 8.0 mg/dL 8.6-10.6 L 5737449166) eGFR (test code = mL/min/1.73m2 3407992472) BRANDI (test code = BRANDI) Association of [...] tests). Lab Interpretation Abnormal (test code = 45007-0) [facility] HospitalPROTHROMBIN TIME / [id number] 11:17:25 Test Item Value Reference Range Interpretation Comments PROTIME PATIENT (test See_Comment [Auto mated message] code = 5964-2) The system [employer] generated this result transmitted ref erence range: 12.0 - 1 4.7 Seconds. The re ference range was not u sed to interpret this result as normal/abnor mal. INR (test code = 6301-6) Nor mal INR <1.1; Warfarin Therap eutic range 2.0 to 3. 0 or 2.5 to 3.5, dep ending upon the indica tions. Lab Interpretation (test Normal code = 52857-1) [facility]2021-05-20 01:38:05 Test Item Value Reference Range Interpretation Comments POCT GLU (test code = 7767433494) 181 mg/dL 70-110 H Lab Interpretation (test code = Abnormal 92116-9) [facility] GLUCOSE (AUTOMATED)2021-05-19 23:12:33 Test Item Value Reference Range Interpretation Comments POCT GLU (test code = 8114675089) 129 mg/dL 70-110 H Lab Interpretation (test code = Abnormal 88250-7) [facility] GLUCOSE (AUTOMATED)2021-05-19 17:43:05 Test Item Value Reference Range Interpretation Comments POCT GLU (test code = 0092847974) 195 mg/dL 70-110 H Lab Interpretation (test code = Abnormal 61719-0) [facility] HospitalN-[facility]MINAL [id number] 16:56:37 Test Item Value Reference Range Interpretation Comments NT-proBNP (test code 925381 pg/mL See_Comment H [Autom ated = 2707253261) message] The system which generated this result transmitted reference range : <=125. The reference range was not used to interpret this result as normal/abnormal . BRANDI (test code = BRANDI) Biotin has been reported to cause a negative bias, interpret results relative to patient's use of biotin. Lab Interpretation Abnormal (test code = 97004-9) [facility] METABOLIC PANEL (NA, K, CL, CO2, GLUCOSE, BUN, CREATININE, CA)2021-05-19 15:16:19 Test Item Value Reference Range Interpretation Comments NA (test code = 132 mmol/L 135-145 L 9209274859) K (test code = 4.7 mmol/L 3.5-5.0 7826243455) CL (test code = 98 mmol/L 98-108 5575381125) CO2 TOTAL (test code = 24 mmol/L 23-31 0287259071) AGAP (test code = 2-16 7322261983) BUN (test code = 30 mg/dL 7-23 H 8376850172) GLUCOSE (test code = 101 mg/dL 70-110 1178555995) CREATININE (test code = 4.70 mg/dL 0.50-1.04 H 9677077337) CALCIUM (test code = 8.3 mg/dL 8.6-10.6 L 8443757000) eGFR (test code = mL/min/1.73m2 4060182217) BRANDI (test code = BRANDI) Association of [...] tests). Lab Interpretation Abnormal (test code = 55952-0) [facility] GLUCOSE (AUTOMATED)2021-05-19 14:16:27 Test Item Value Reference Range Interpretation Comments POCT GLU (test code = 1771610820) 112 mg/dL 70-110 H Lab Interpretation (test code = Abnormal 66016-1) [facility] WITH [id number] 13:09:08 Test Item Value Reference Range Interpretation [...] (test code = 51.2 fL 39.0-49.9 H 56559-3) RDW-CV (test code = 14.6 % 12.0-15.5 788-0) PLT (test code = See_Comment L [Automated 777-3) message] The sy stem which generated this result transmitted reference range : 166 - 358 10*3/ ?L. The reference r alba was not used to interpret this result as normal/abnormal . MPV (test code = 11.0 fL 9.5-12.9 51107-3) NRBC/100 WBC (test See_Comment [Automat ed code = 4388115077) message] The system which generated this result transmitted reference range : 0.0 - 10.0 /100 WBCs. The refer ence range was not u sed to interpret th is result as normal/abnormal . NRBC x10^3 (test code <0.01 See_Comment [Auto mated = 0137394866) message] The s ystem which generated this result transmitted reference range : 10*3/?L. The reference range was not used to interpret this result as normal/abnormal . GRAN MAT (NEUT) % 82.8 % (test code = 770-8) IMM GRAN % (test code 0.40 % = 0862748700) LYMPH % (test code = 7.8 % 736-9) MONO % (test code = 7.9 % 5905-5) EOS % (test code = 0.7 % 713-8) BASO % (test code = 0.4 % 706-2) GRAN MAT x10^3(ANC) 5.98 10*3/uL 1.88-7.09 (test code = 4149958295) IMM GRAN x10^3 (test 0.03 10*3/uL 0.00-0.06 code = 6713804788) LYMPH x10^3 (test code 0.56 10*3/uL 1.32-3.29 L = 731-0) MONO x10^3 (test code 0.57 10*3/uL 0.33-0.92 = 742-7) EOS x10^3 (test code = 0.05 10*3/uL 0.03-0.39 711-2) BASO x10^3 (test code 0.03 10*3/uL 0.01-0.07 = 704-7) Lab Interpretation Abnormal (test code = 32404-0) [facility] B Surface Antibody (HBsAb)2021-05-19 09:35:37 Test Item Value Reference Range Interpretation Comments HBsAB (test code = Positive 3282843923) HBsAb mIU/mL Semi-Quantitative (test code = 1570451213) BRANDI (test code = Interpretation: BRANDI) ?Hepatitis B Surface Antibody ? Negative - Patient is considered to be not immune to infection with HBV. ? ? Positive - Anti-HBs detected at greater than or equal to 12 mIU/mL. ?Patient is considered to be immune to infection with HBV. ? [facility] B Surface Antigen (HBsAg)2021-05-19 09:17:53 Test Item Value Reference Range Interpretation Comments HBsAg Semi-Quantitative (test code = Negative Negative 5195-3) [facility] GLUCOSE (AUTOMATED)2021-05-19 03:13:02 Test Item Value Reference Range Interpretation Comments POCT GLU (test code = 7232493434) 110 mg/dL 70-110 Lab Interpretation (test code = Normal 48935-3) [facility] GLUCOSE (AUTOMATED)2021-05-18 23:00:40 Test Item Value Reference Range Interpretation Comments POCT GLU (test code = 0250135519) 177 mg/dL 70-110 H Lab Interpretation (test code = Abnormal 27093-6) [facility] GLUCOSE (AUTOMATED)2021-05-18 17:50:50 Test Item Value Reference Range Interpretation Comments POCT GLU (test code = 0138978566) 179 mg/dL 70-110 H Lab Interpretation (test code = Abnormal 00456-0) [facility] GLUCOSE (AUTOMATED)2021-05-18 17:26:29 Test Item Value Reference Range Interpretation Comments POCT GLU (test code = 4769896523) 171 mg/dL 70-110 H Lab Interpretation (test code = Abnormal 66843-5) [facility] METABOLIC PANEL (NA, K, CL, CO2, GLUCOSE, BUN, CREATININE, CA)2021-05-18 15:43:01 Test Item Value Reference Range Interpretation Comments NA (test code = 128 mmol/L 135-145 L 9115303793) K (test code = 5.5 mmol/L 3.5-5.0 H 1974167581) CL (test code = 94 mmol/L 98-108 L 4153984746) CO2 TOTAL (test code = 24 mmol/L 23-31 7730871616) AGAP (test code = 2-16 3204945990) BUN (test code = 56 mg/dL 7-23 H 3764724378) GLUCOSE (test code = 130 mg/dL 70-110 H 8771194055) CREATININE (test code = 7.52 mg/dL 0.50-1.04 H 2236976110) CALCIUM (test code = 7.8 mg/dL 8.6-10.6 L 2950206391) eGFR (test code = mL/min/1.73m2 9334568573) BRANDI (test code = BRANDI) Association of [...] tests). Lab Interpretation Abnormal (test code = 76199-3) [facility] GLUCOSE (AUTOMATED)2021-05-18 13:33:12 Test Item Value Reference Range Interpretation Comments POCT GLU (test code = 4445376873) 129 mg/dL 70-110 H Lab Interpretation (test code = Abnormal 30130-5) [facility] GLUCOSE (AUTOMATED)2021-05-17 22:57:15 Test Item Value Reference Range Interpretation Comments POCT GLU (test code = 8930938784) 215 mg/dL 70-110 H Lab Interpretation (test code = Abnormal 59532-7) [facility]2021-05-17 18:02:09 Test Item Value Reference Range Interpretation Comments LVOT diameter (test code 2.00 cm = 0625087494) MV Peak E [place] (test code 134.0 cm/s = 7039787892) MV Peak A [place] (test code 54.2 cm/s = 4300077603) E/A ratio (test code = ratio 1475551466) E wave decelartion time 0.22 s (test code = 5964619754) LA size (test code = 5.4 cm 6027391648) MV stenosis pressure 1/2 65.0 ms time (test code = 9114623320) MV dec slope (test code 604.00 cm/s2 = 3818890228) Ao root annulus (test 2.7 cm code = 4903160292) Ao root diam (test code 2.70 cm = 7769664060) Aortic root (test code = 2.7 cm 4965799576) LVIDD (test code = 5.10 cm 6418844165) IVS (test code = 1.06 cm 5900685424) Interventricular Septum 1.06 cm Diastolic Thickness by 2D (test code = 5290828) LVPWD (test code = 1.00 cm 0271378756) PW (test code = 1.00 cm 0.6-1.0 8651614392) LVIDS (test code = 3.70 cm 8731252169) FS (test code = 27 % 5419348185) EF(Teich) (test code = 52.60 % 4309976055) EF - 2D (test code = 52.60 % 55722105) MR max PG (test code = 123.90 mm[Hg] 0973528693) MR max [place] (test code = 556.50 cm/s 9728653575) Mr max [place] (test code = 556.5 m/s 8263556302) LAV(MOD-sp4) (test code 46.70 mL = 6314143761) LA Volume Index (BP) 29.2 mL/m2 (test code = 2222898456) LA volume (BP) (test 51.8 mL code = 7619183949) LAV(MOD-sp2) (test code 52.40 mL = 5532494570) Aortic valve mean 105.0 cm/s velocity (test code = 5007505577) Ao peak [place] (test code = 160.0 cm/s 3382682713) Ao VTI (test code = 30.0 cm 4783470146) Ao max PG (test code = 10.20 mm[Hg] 8598553998) AV peak gradient (test mmHg code = 3523811323) AV mean gradient (test mmHg code = 1974118538) LVOT stroke volume (test 63.60 cm3 code = 5565067846) LVOT peak [place] (test code 108.3 cm/s = 5272599260) LVOT mn grad (test code mmHg = 5774043069) AV LVOT peak gradient mmHg (test code = 5599311691) LVOT peak VTI (test code 20.2 cm = 6272416203) AV area by cont VTI 2.1 cm2 (test code = 0649212937) AV area peak [place] (test 2.1 cm2 code = 5874105231) LV V1 mean (test code = 66.80 cm/s 0411750513) AV valve area (test code 2.12 cm2 = 5187445182) TR Peak [place] (test code = 342.9 cm/s 0099527158) Triscuspid Valve mmHg Regurgitation Peak Gradient (test code = 4272630080) PV REGURGITATION PEAK mmHg GRADIENT (test code = 6684231235) PI dec slope (test code 438.00 cm/s2 = 8112731917) Pulmonic Regurgitant End 105.3 cm/s Max Velocity (test code = 0035228729) Inferior Vena Cava 2.33 cm Diameter (test code = 5708297113) MV Prop V (test code = 37.50 cm/s 7782356495) Radiology Study observation (narrative) (test code = 26124-6) ADD (test code = ADD) Addendum by Brenda Fuentes MD on 05/17/2021 3:16 PM DATA ANALYST ?Left?Ventricle: Low normal systolic function with a [...] (73.9 kg) 1.81 sq meters 165/73 71 [facility] GLUCOSE (AUTOMATED)2021-05-17 17:54:17 Test Item Value Reference Range Interpretation Comments POCT GLU (test code = 2001130371) 134 mg/dL 70-110 H Lab Interpretation (test code = Abnormal 01335-6) [facility] GLUCOSE (AUTOMATED)2021-05-17 14:18:37 Test Item Value Reference Range Interpretation Comments POCT GLU (test code = 8158526473) 119 mg/dL 70-110 H Lab Interpretation (test code = Abnormal 19844-1) [facility] [id number] 11:21:13 Test Item Value Reference Range Interpretation Comments NT-proBNP (test code 164642 pg/mL See_Comment H [Autom ated = 6145587196) message] The system which generated this result transmitted reference range : <=125. The reference range was not used to interpret this result as normal/abnormal . BRANDI (test code = BRANDI) Biotin has been reported to cause a negative bias, interpret results relative to patient's use of biotin. Lab Interpretation Abnormal (test code = 16944-1) [facility] WITHOUT [id number] 11:09:22 Test Item Value Reference Range Interpretation Comments WBC (test code = 6690-2) See_Comment [A utomated message] The system [employer] generated this result transmit levi reference range : 4.30 - 11.10 10*3/?L. The reference range was not used to interpret this result as normal/abnormal . RBC (test code = 789-8) See_Comment L [Au tomated message] The system [employer] generated this result transmit levi reference range [...] See_Comment L [Au tomated message] The system [employer] generated this result transmit levi reference range : 166 - 358 10*3/?L. The reference range was not used to interpret this result as normal/abnormal . MPV (test code = 11.1 fL 9.5-12.9 71280-7) RDW-CV (test code = 14.5 % 12.0-15.5 788-0) RDW-SD (test code = 50.8 fL 39.0-49.9 H 67038-8) NRBC x10^3 (test code = <0.01 See_Comment [Au tomated message] 1262249082) The system whic h generated this result transmit levi reference range : 10*3/?L. The reference range was not used to interpret this result as normal/abnormal . NRBC/100 WBC (test code See_Comment [Au tomated message] = 5900906570) The system [employer] generated this result transmit levi reference range : 0.0 - 10.0 /100 WBC s. The reference r alba was not used to interpret this result as normal/abnormal . IPF % (test code = 4702613904) Lab Interpretation (test Abnormal code = 33801-8) [facility] 10:56:23 Test Item Value Reference Range Interpretation Comments MAGNESIUM (test code = 8688573433) 2.1 mg/dL 1.7-2.4 Lab Interpretation (test code = Normal 03867-8) [facility] METABOLIC PANEL (NA, K, CL, CO2, GLUCOSE, BUN, CREATININE, CA)2021-05-17 10:56:22 Test Item Value Reference Range Interpretation Comments NA (test code = 130 mmol/L 135-145 L 4616269639) K (test code = 4.6 mmol/L 3.5-5.0 6926618140) CL (test code = 96 mmol/L 98-108 L 4831253991) CO2 TOTAL (test code = 26 mmol/L 23-31 8202939414) AGAP (test code = 2-16 5709767606) BUN (test code = 42 mg/dL 7-23 H 8395643534) GLUCOSE (test code = 148 mg/dL 70-110 H 6330988868) CREATININE (test code = 5.84 mg/dL 0.50-1.04 H 8497675794) CALCIUM (test code = 7.9 mg/dL 8.6-10.6 L 6693709068) eGFR (test code = mL/min/1.73m2 6025955805) BRANDI (test code = BRANDI) Association of [...] tests). Lab Interpretation Abnormal (test code = 92915-9) [facility] 10:56:02 Test Item Value Reference Range Interpretation Comments PHOSPHORUS (test code = 4828710681) 5.8 mg/dL 2.5-5.0 H Lab Interpretation (test code = Abnormal 03318-1) [facility] GLUCOSE (AUTOMATED)2021-05-16 22:43:07 Test Item Value Reference Range Interpretation Comments POCT GLU (test code = 8686061940) 231 mg/dL 70-110 H Lab Interpretation (test code = Abnormal 28250-6) [facility] GLUCOSE (AUTOMATED)2021-05-16 17:43:53 Test Item Value Reference Range Interpretation Comments POCT GLU (test code = 1358936286) 154 mg/dL 70-110 H Lab Interpretation (test code = Abnormal 82582-4) [facility] GLUCOSE (AUTOMATED)2021-05-16 13:42:36 Test Item Value Reference Range Interpretation Comments POCT GLU (test code = 4221572936) 121 mg/dL 70-110 H Lab Interpretation (test code = Abnormal 81593-9) [facility] WITHOUT [id number] 09:48:31 Test Item Value Reference Range Interpretation Comments WBC (test code = 6690-2) See_Comment [A utomated message] The system [employer] generated this result transmit levi reference range : 4.30 - 11.10 10*3/?L. The reference range was not used to interpret this result as normal/abnormal . RBC (test code = 789-8) See_Comment L [Au tomated message] The system [employer] generated this result transmit levi reference range [...] See_Comment L [Au tomated message] The system [employer] generated this result transmit levi reference range : 166 - 358 10*3/?L. The reference range was not used to interpret this result as normal/abnormal . MPV (test code = 10.9 fL 9.5-12.9 13099-5) RDW-CV (test code = 15.0 % 12.0-15.5 788-0) RDW-SD (test code = 52.6 fL 39.0-49.9 H 95006-3) NRBC x10^3 (test code = <0.01 See_Comment [Au tomated message] 7885205976) The system [employer] generated this result transmit levi reference range : 10*3/?L. The reference range was not used to interpret this result as normal/abnormal . NRBC/100 WBC (test code See_Comment [Au tomated message] = 6860803703) The system [facility] generated this result transmit levi reference range : 0.0 - 10.0 /100 WBC s. The reference r alba was not used to interpret this result as normal/abnormal . IPF % (test code = 4480292198) Lab Interpretation (test Abnormal code = 61657-0) [facility] (Total Cholesterol, Triglycerides, HDL)2021-05-16 09:36:18 Test Item Value Reference Range Interpretation Comments CHOL (test code = 157 mg/dL 120-200 3463383404) HDL (test code = 26 mg/dL >50 L 3192987898) HDLC RATIO (test code = See_Comment H [Au tomated message] 3412208549) The system [employer] generated this result transmit levi reference range : <=4.5. The refe rence range was not u sed to interpret th is result as normal/abnormal . TRIG (test code = 146 mg/dL 30-170 0964028671) LDL CHOL (test code = 102 mg/dL See_Comment [Auto mated message] 72637-0) The system [employer] generated this result transmit levi reference range : <=160. The refe rence range was not u sed to interpret th is result as normal/abnormal . VLDL (test code = 29 mg/dL 5-60 0405053637) Lab Interpretation (test Abnormal code = 15605-9) [facility] HospitalGlycosylated Hemoglobin (A1C)2021-05-16 09:22:50 Test Item Value Reference Range Interpretation Comments HGB A1C (test code = 6.2 % 4.0-5.7 H 4548-4) BRANDI (test code = BRANDI) Reference RangesNormal: <5.7%Prediabetes: 5.7 - 6.4%Diabetes: > 6.5% Lab Interpretation (test Abnormal code = 24976-0) [facility] HospitalTroponin [id number] 09:19:18 Test Item Value Reference Interpretation Comments Range TROPONIN I (test 0.028 ng/mL See_Comment [Automated code = 6980601173) message] The system which generated this result [...] biotin. Lab Interpretation Normal (test code = 88463-1) [facility] Metabolic Panel (NA, K, CL, CO2, GLUCOSE, BUN, CREATININE, CA)2021-05-16 09:08:35 Test Item Value Reference Range Interpretation Comments NA (test code = 134 mmol/L 135-145 L 2352123831) K (test code = 4.3 mmol/L 3.5-5.0 4107250068) CL (test code = 98 mmol/L 98-108 0028754162) CO2 TOTAL (test code = 27 mmol/L 23-31 9052110420) AGAP (test code = 2-16 0806581439) BUN (test code = 28 mg/dL 7-23 H 0316049053) GLUCOSE (test code = 114 mg/dL 70-110 H 3628027976) CREATININE (test code = 4.79 mg/dL 0.50-1.04 H 9191829329) CALCIUM (test code = 8.2 mg/dL 8.6-10.6 L 2039653112) eGFR (test code = mL/min/1.73m2 3164378631) BRANDI (test code = BRANDI) Association of [...] tests). Lab Interpretation Abnormal (test code = 76255-4) [facility] HospitalMagnesium [id number] 09:08:35 Test Item Value Reference Range Interpretation Comments MAGNESIUM (test code = 4879174271) 2.2 mg/dL 1.7-2.4 Lab Interpretation (test code = Normal 04189-0) [facility] HospitalTroponin [id number] 03:08:26 Test Item Value Reference Interpretation Comments Range TROPONIN I (test 0.019 ng/mL See_Comment [Automated code = 9328823400) message] The system which generated this result [...] biotin. Lab Interpretation Normal (test code = 01035-7) [facility] HospitalPhosphorus Gkepy7295-50-43 02:56:02 Test Item Value Reference Range Interpretation Comments PHOSPHORUS (test code = 5728416789) 4.5 mg/dL 2.5-5.0 Lab Interpretation (test code = Normal 31821-1) [facility] HospitalPOCT GLUCOSE (AUTOMATED)2021-05-16 02:28:15 Test Item Value Reference Range Interpretation Comments POCT GLU (test code = 4268606490) 155 mg/dL 70-110 H Lab Interpretation (test code = Abnormal 51119-7) [facility] HospitalThyroid Stimulating Hormone (TSH)2021-05-16 01:56:53 Test Item Value Reference Range Interpretation Comments TSH (test code = See_Comment [Automated message] 7928431323) The system [employer] generated this result transmitted ref erence range: 0.45 - 4 .70 mIU/L. The refe rence range was not u sed to interpret this result as normal/abnor mal. Lab Interpretation (test Normal code = 55136-5) [facility] HospitalGlycosylated Hemoglobin (A1C)2021-05-16 01:17:48 Test Item Value Reference Range Interpretation Comments HGB A1C (test code = 6.3 % 4.0-5.7 H 4548-4) BRANDI (test code = BRANDI) Reference RangesNormal: <5.7%Prediabetes: 5.7 - 6.4%Diabetes: > 6.5% Lab Interpretation (test Abnormal code = 67870-4) [facility] HospitalN-TERMINAL [id number] 20:42:55 Test Item Value Reference Range Interpretation Comments NT-proBNP (test code 074530 pg/mL See_Comment H [Autom ated = 0325003548) message] The system which generated this result transmitted reference range : <=125. The reference range was not used to interpret this result as normal/abnormal . BRANDI (test code = BRANDI) Biotin has been reported to cause a negative bias, interpret results relative to patient's use of biotin. Lab Interpretation Abnormal (test code = 73952-4) [facility] HospitalTROPONIN [id number] 20:28:40 Test Item Value Reference Interpretation Comments Range TROPONIN I (test 0.012 ng/mL See_Comment [Automated code = 6677638074) message] The system which generated this result [...] biotin. Lab Interpretation Normal (test code = 44820-7) [facility] HospitalD-[id number] 20:27:34 Test Item Value Reference Interpretation Comments Range D-DIMER (test code = See_Comment H [Autom ated 1033644322) message] The system which generated this result [...] diagnosis. Lab Interpretation Abnormal (test code = 79918-1) [facility] HospitalMAGNESIUM2022-02-11 20:17:56 Test Item Value Reference Range Interpretation Comments MAGNESIUM (test code = 4391713318) 1.9 mg/dL 1.7-2.4 Lab Interpretation (test code = Normal 14810-5) [facility] HospitalCOMP. METABOLIC PANEL (92028)2021-05-15 20:17:36 Test Item Value Reference Range Interpretation Comments NA (test code = 136 mmol/L 135-145 0094754951) K (test code = 4.2 mmol/L 3.5-5.0 2415802941) CL (test code = 99 mmol/L 98-108 0088684491) CO2 TOTAL (test code = 26 mmol/L 23-31 0610645997) AGAP (test code = 2-16 7097920298) BUN (test code = 24 mg/dL 7-23 H 4807445565) GLUCOSE (test code = 112 mg/dL 70-110 H 6190129428) CREATININE (test code = 3.82 mg/dL 0.50-1.04 H 7023649791) TOTAL BILI (test code = 1.0 mg/dL 0.1-1.4 3489395736) CALCIUM (test code = 8.5 mg/dL 8.6-10.6 L 5451142710) T PROTEIN (test code = 8.6 g/dL 6.3-8.2 H 0797448328) ALBUMIN (test code = 4.2 g/dL 3.5-5.0 8920066006) ALK PHOS (test code = 176 U/L 34-122 H 7441187008) ALTv (test code = 13 U/L 5-35 1742-6) AST(SGOT) (test code = 26 U/L 13-40 7618249469) eGFR (test code = mL/min/1.73m2 5186348504) BRANDI (test code = BRANDI) Association of [...] tests). Lab Interpretation Abnormal (test code = 29524-3) [facility] HospitalLIPASE2022-02-11 20:17:15 Test Item Value Reference Range Interpretation Comments LIPASE (test code = 6487139235) 125 U/L 0-220 Lab Interpretation (test code = Normal 85048-2) [facility] HospitalPROTHROMBIN TIME / [id number] 20:02:29 Test Item Value Reference Range Interpretation [...] tions. Lab Interpretation (test Normal code = 32994-3) [facility] HospitalCBC WITH [id number] 19:52:47 Test Item Value Reference Range Interpretation Comments WBC (test code = See_Comment [Automated 0790-2) message] The sy stem which generated this result transmitted reference range : 4.30 - 11.10 10*3/?L. The reference range was not used to interpret this result as normal/abnormal . RBC (test code = See_Comment L [Automated 069-8) message] The sy stem which generated this [...] (test code = 52.6 fL 39.0-49.9 H 67961-7) RDW-CV (test code = 15.0 % 12.0-15.5 788-0) PLT (test code = See_Comment L [Automated 777-3) message] The sy stem which generated this result transmitted reference range : 166 - 358 10*3/ ?L. The reference r alba was not used to interpret this result as normal/abnormal . MPV (test code = 10.9 fL 9.5-12.9 17485-5) NRBC/100 WBC (test See_Comment [Automat ed code = 9417379587) message] The system which generated this result transmitted reference range : 0.0 - 10.0 /100 WBCs. The refer ence range was not u sed to interpret th is result as normal/abnormal . NRBC x10^3 (test code <0.01 See_Comment [Auto mated = 9737130102) message] The s ystem which generated this result transmitted reference range : 10*3/?L. The reference range was not used to interpret this result as normal/abnormal . GRAN MAT (NEUT) % 74.8 % (test code = 770-8) IMM GRAN % (test code 0.60 % = 0724445066) LYMPH % (test code = 12.4 % 736-9) MONO % (test code = 8.7 % 5905-5) EOS % (test code = 2.6 % 713-8) BASO % (test code = 0.9 % 706-2) GRAN MAT x10^3(ANC) 4.06 10*3/uL 1.88-7.09 (test code = 6855146992) IMM GRAN x10^3 (test 0.03 10*3/uL 0.00-0.06 code = 8732963401) LYMPH x10^3 (test code 0.67 10*3/uL 1.32-3.29 L = 731-0) MONO x10^3 (test code 0.47 10*3/uL 0.33-0.92 = 742-7) EOS x10^3 (test code = 0.14 10*3/uL 0.03-0.39 711-2) BASO x10^3 (test code 0.05 10*3/uL 0.01-0.07 = 704-7) Lab Interpretation Abnormal (test code = 44252-4) [facility] HospitalTroponin I.cardiac [Mass/volume] in Serum or Fqurhu3650-56-43 17:30:00 Test Item Value Reference Range Interpretation Comments Troponin I.cardiac 0.35 See_Comment [Automat ed message] The [Mass/volume] in Serum syste m which generated or Plasma (test code = this result transmitted Troponin I.cardiac reference range: <=0.045. [Mass/volume] in Serum The r eference range was or Plasma) not used to int erpret this result as normal/abnormal . [facility]annAbsolute lymphocyte pxjnl0101-49-99 11:37:00 Test Item Value Reference Range Interpretation Comments Absolute lymphocyte count (test code = 0.7 0.7-4.9 Absolute lymphocyte count) [facility] HospitalannBasophil %2019-02-18 11:37:00 Test Item Value Reference Range Interpretation Comments Basophil % (test code = 2.4 See_Comment [Au tomated message] The Basophil %) system which ge nerated this result tra nsmitted reference range : <=1.3. The reference r alba was not used to int erpret this result as normal/abnormal . [facility]annBlood anisocytosis fxoquoeos5314-63-80 11:37:00 Test Item Value Reference Range Interpretation Comments Blood anisocytosis detection (test code 2+ = Blood anisocytosis detection) [facility] HospitalannBlood erythrocytes count (number/volume)2019-02-18 11:37:00 Test Item Value Reference Range Interpretation Comments Blood erythrocytes count 3.34 3.86-4.86 (number/volume) (test code = Blood erythrocytes count (number/volume)) [facility] HospitalannBlood hematocrit (volume fraction)2019-02-18 11:37:00 Test Item Value Reference Range Interpretation Comments Blood hematocrit (volume fraction) 31.8 36.0-45.0 (test code = Blood hematocrit (volume fraction)) [facility]annBlood morphology interpretation lfxaneapd9993-44-46 11:37:00 Test Item Value Reference Range Interpretation Comments Blood morphology interpretation Noted narrative (test code = Blood morphology interpretation narrative) [facility]annBlood platelet mean tptrkj5009-04-47 11:37:00 Test Item Value Reference Range Interpretation Comments Blood platelet mean volume (test code = 9.8 7.6-11.3 Blood platelet mean volume) [facility]annBlood poikilocytosis detection by light ponfvkdboh7630-59-02 11:37:00 Test Item Value Reference Range Interpretation Comments Blood poikilocytosis detection by light 1+ microscopy (test code = Blood poikilocytosis detection by light microscopy) [facility]annCalcium [Mass/volume] in Serum or Ziqkns8584-32-06 11:37:00 Test Item Value Reference Range Interpretation [...] [Moles/volume] in Serum or Plasma) [facility]annChemistry zfqlzigpw6820-89-37 11:37:00 Test Item Value Reference Range Interpretation Comments Chemistry procedure (test code = 95.3 80-100 Chemistry procedure) [facility]annChloride [Moles/volume] in Serum or [id number] 11:37:00 Test Item Value Reference Range Interpretation Comments Chloride [Moles/volume] in Serum or 98 98-107 Plasma (test code = Chloride [Moles/volume] in Serum or Plasma) [facility]annCreatinine [Mass/volume] in Serum or Lzllkb2631-91-04 11:37:00 Test Item Value Reference Range Interpretation Comments Creatinine [Mass/volume] in Serum or 7.35 0.55-1.3 Plasma (test code = Creatinine [Mass/volume] in Serum or Plasma) [facility]annGlucose [Mass/volume] in Serum or Gplmyn7404-55-86 11:37:00 Test Item Value Reference Range Interpretation Comments Glucose [Mass/volume] in Serum or 110 74-106 Plasma (test code = Glucose [Mass/volume] in Serum or Plasma) [facility]annMagnesium [Mass/volume] in Serum or Biykpo6557-59-10 11:37:00 Test Item Value Reference Range Interpretation Comments Magnesium [Mass/volume] in Serum or 2.4 1.8-2.4 Plasma (test code = Magnesium [Mass/volume] in Serum or Plasma) [facility]annPhosphate [Mass/volume] in Serum or Vmlsai7003-95-00 11:37:00 Test Item Value Reference Range Interpretation Comments Phosphate [Mass/volume] in Serum or 4.7 2.5-4.9 Plasma (test code = Phosphate [Mass/volume] in Serum or Plasma) [facility]annPotassium [Moles/volume] in Serum or Piikfr0270-61-40 11:37:00 Test Item Value Reference Range Interpretation [...] [facility]annUrea nitrogen [Mass/volume] in Serum or Ebzarx0555-85-83 11:37:00 Test Item Value Reference Range Interpretation Comments Urea nitrogen [Mass/volume] in Serum or 74 7-18 Plasma (test code = Urea nitrogen [Mass/volume] in Serum or Plasma) [facility]annUrine dipstick testing at bbyxu-xq-maqk2601-11-17 11:37:00 Test Item Value Reference Range Interpretation Comments Urine dipstick testing at dexls-fg-grxy 2.6 4.3-10.9 (test code = Urine dipstick testing at ofwhv-vh-myqx) [facility] HospitalannAlanine aminotransferase [Enzymatic activity/volume] in Serum or Plasma by With P-5'-2019-02-18 00:35:00 Test Item Value Reference Range Interpretation Comments Alanine aminotransferase [Enzymatic 64 12-78 activity/volume] in Serum or Plasma by With P-5'- (test code = Alanine aminotransferase [Enzymatic activity/volume] in Serum or Plasma by With P-5'-) [facility]annAlbumin [Mass/volume] in Serum or Plasma by Bromocresol purple (BCP) dye binding [id number] 00:35:00 Test Item Value Reference Range Interpretation Comments Albumin [Mass/volume] in Serum or 3.6 3.4-5.0 Plasma by Bromocresol purple (BCP) dye binding meth (test code = Albumin [Mass/volume] in Serum or Plasma by Bromocresol purple (BCP) dye binding meth) [facility]annAlkaline phosphatase [Enzymatic activity/volume] in Serum or Yngjnm3265-10-10 00:35:00 Test Item Value Reference Range Interpretation Comments Alkaline phosphatase [Enzymatic 236 45-117 activity/volume] in Serum or Plasma (test code = Alkaline phosphatase [Enzymatic activity/volume] in Serum or Plasma) [facility]annAspartate aminotransferase [Enzymatic activity/volume] in Serum or Plasma by With [id number] 00:35:00 Test Item Value Reference Range Interpretation Comments Aspartate aminotransferase [Enzymatic 48 15-37 activity/volume] in Serum or Plasma by With P-5 (test code = Aspartate aminotransferase [Enzymatic activity/volume] in Serum or Plasma by With P-5) [facility]annBilirubin.direct [Mass/volume] in Serum or Gmgxzm8791-41-44 00:35:00 Test Item Value Reference Range Interpretation Comments Bilirubin.direct 0.2 See_Comment [Automated message] The [Mass/volume] in Serum syste m which generated or Plasma (test code = this result transmitted Bilirubin.direct reference r alba: <=0.2. [Mass/volume] in Serum The r eference range was or Plasma) not used to int erpret this result as emilee l/abnormal. [facility]annBilirubin.total [Mass/volume] in Serum or Wjqbht9756-42-12 00:35:00 Test Item Value Reference Range Interpretation Comments Bilirubin.total [Mass/volume] in Serum 0.6 0.2-1.0 or Plasma (test code = Bilirubin.total [Mass/volume] in Serum or Plasma) [facility]annINR in Blood by Coagulation [id number] 00:35:00 Test Item Value Reference Range Interpretation Comments INR in Blood by Coagulation assay 1.15 1 (test code = INR in Blood by Coagulation assay) [facility] HermannNatriuretic peptide.B prohormone N-Terminal [Mass/volume] in Serum or Mzdprj4904-00-11 00:35:00 Test Item Value Reference Range Interpretation Comments Natriuretic peptide.B prohormone > 247570 N-Terminal [Mass/volume] in Serum or Plasma (test code = Natriuretic peptide.B prohormone N-Terminal [Mass/volume] in Serum or Plasma) [facility]annProtein [Mass/volume] in Serum or Sdwddn6339-81-12 00:35:00 Test Item Value Reference Range Interpretation Comments Protein [Mass/volume] in Serum or 8.0 6.4-8.2 Plasma (test code = Protein [Mass/volume] in Serum or Plasma) [facility]annTroponin I.cardiac [Mass/volume] in Serum or Sdfpgr9561-79-87 00:35:00 Test Item Value Reference Range Interpretation [...] [facility]annUrea nitrogen [Mass/volume] in Serum or Qbgbtv1885-37-79 04:05:00 Test Item Value Reference Range Interpretation Comments Urea nitrogen [Mass/volume] in Serum or 52 7-18 Plasma (test code = Urea nitrogen [Mass/volume] in Serum or Plasma) [facility] HermannUrine dipstick testing at qdbzf-ro-jaij8584-10-25 04:05:00 Test Item Value Reference Range Interpretation Comments Urine dipstick testing at smxcn-go-pugb 3.4 4.3-10.9 (test code = Urine dipstick testing at hnopx-nh-htkp) [facility] HermannAbsolute lymphocyte bmpvc3385-28-73 04:05:00 Test Item Value Reference Range Interpretation [...] int erpret this result as normal/abnormal . [facility] HospitalannBlood erythrocytes count (number/volume)2019-01-26 04:05:00 Test Item Value Reference Range Interpretation Comments Blood erythrocytes count 3.64 3.86-4.86 (number/volume) (test code = Blood erythrocytes count (number/volume)) [facility] HospitalannBlood hematocrit (volume fraction)2019-01-26 04:05:00 Test Item Value Reference Range Interpretation Comments Blood hematocrit (volume fraction) 35.7 36.0-45.0 (test code = Blood hematocrit (volume fraction)) [facility]annBlood morphology interpretation zkwousrwt9629-06-46 04:05:00 Test Item Value Reference Range Interpretation Comments Blood morphology interpretation Not seen narrative (test code = Blood morphology interpretation narrative) [facility]annBlood platelet mean snqygf3801-58-31 04:05:00 Test Item Value Reference Range Interpretation Comments Blood platelet mean volume (test code = 9.2 7.6-11.3 Blood platelet mean volume) [facility] HermannCalcium [Mass/volume] in Serum or Cbxvmh1409-58-83 04:05:00 Test Item Value Reference Range Interpretation Comments Calcium [Mass/volume] in Serum or 6.8 8.5-10.1 Plasma (test code = Calcium [Mass/volume] in Serum or Plasma) [facility] HospitalannCarbon dioxide, total [Moles/volume] in Serum or Plasma 2019-01-26 04:05:00 Test Item Value Reference Range Interpretation Comments Carbon dioxide, total [Moles/volume] in 26 21-32 Serum or Plasma (test code = Carbon dioxide, total [Moles/volume] in Serum or Plasma) [facility] HospitalannChemistry yfmtlbvuq3784-22-09 04:05:00 Test Item Value Reference Range Interpretation Comments Chemistry procedure (test code = 98.1 80-100 Chemistry procedure) [facility]annChloride [Moles/volume] in Serum or Fvwqub8755-35-16 04:05:00 Test Item Value Reference Range Interpretation Comments Chloride [Moles/volume] in Serum or 98 98-107 Plasma (test code = Chloride [Moles/volume] in Serum or Plasma) [facility]annCreatinine [Mass/volume] in Serum or Lfvkzd1687-45-71 04:05:00 Test Item Value Reference Range Interpretation Comments Creatinine [Mass/volume] in Serum or 6.36 0.55-1.3 Plasma (test code = Creatinine [Mass/volume] in Serum or Plasma) [facility]annGlucose [Mass/volume] in Serum or Cubbil7255-09-39 04:05:00 Test Item Value Reference Range Interpretation Comments Glucose [Mass/volume] in Serum or 251 74-106 Plasma (test code = Glucose [Mass/volume] in Serum or Plasma) [facility]annPotassium [Moles/volume] in Serum or Wkhygo9270-18-31 04:05:00 Test Item Value Reference Range Interpretation Comments Potassium [Moles/volume] in Serum or 4.7 3.5-5.1 Plasma (test code = Potassium [Moles/volume] in Serum or Plasma) [facility] HospitalannBacterial culture w [id number] 01:55:00 Test Item Value Reference Range Interpretation Comments Bacterial culture w ID NORMAL UPPER (test code = Bacterial RESPIRATORY HARI culture w ID) GROWN. [facility] HospitalannLaboratory Swdeybl5607-51-79 16:07:00 Test Item Value Reference Range Interpretation Comments Bedside Glucose (test code = Bedside 175 65-[address]) [facility]annLabor[facility] Mvollwz0951-69-48 05:35:00 Test Item Value Reference Range Interpretation Comments Blood Morphology Blood Morphology Comment (test code = Comment Blood Morphology Comment) [facility] Vfpdout9581-92-57 05:35:00 Test Item Value Reference Range Interpretation Comments Total Bilirubin (test code = Total 0.5 0.2-1.0 Bilirubin) [facility]annLabor[facility] Oehtorn5790-81-72 05:35:00 Test Item Value Reference Range Interpretation Comments Sodium Level (test code = Sodium Level) 137 136-145 [facility]annLabor[facility] Uydaapz0118-25-68 05:35:00 Test Item Value Reference Range Interpretation Comments Serum Total Protein (test code = Serum 7.5 6.4-8.2 Total Protein) [facility]2019-07-10 05:35:00 Test Item Value Reference Range Interpretation Comments Potassium Level (test code = Potassium 4.8 3.5-5.1 Level) [facility]2019-07-10 05:35:00 Test Item Value Reference Range Interpretation Comments Glucose Level (test code = Glucose 90 74-106 Level) [facility]2019-07-10 05:35:00 Test Item Value Reference Range Interpretation Comments Globulin (test code = Globulin) 4.3 2.3-3.5 [facility]2019-07-10 05:35:00 Test Item Value Reference Range Interpretation Comments Estimat Glomerular 7 See_Comment [Automat ed message] The Filtration Rate (test system which generated code = Estimat this result t ransmitted Glomerular Filtration refere nce range: >=90. Rate) The reference r alba was not used to int erpret this result as normal/abnormal . [facility]2019-07-10 05:35:00 Test Item Value Reference Range Interpretation Comments Creatinine (test code = Creatinine) 6.02 0.55-1.3 [facility]2019-07-10 05:35:00 Test Item Value Reference Range Interpretation Comments Chloride Level (test code = Chloride 102 98-107 Level) [facility]2019-07-10 05:35:00 Test Item Value Reference Range Interpretation Comments Carbon Dioxide Level (test code = 25 21-32 Carbon Dioxide Level) [facility]2019-07-10 05:35:00 Test Item Value Reference Range Interpretation Comments Calcium Level (test code = Calcium 8.1 8.5-10.1 Level) [facility]2019-07-10 05:35:00 Test Item Value Reference Range Interpretation Comments Blood Urea Nitrogen (test code = Blood 43 7-18 Urea Nitrogen) [facility]2019-07-10 05:35:00 Test Item Value Reference Range Interpretation Comments Aspartate Amino Transf (AST/SGOT) (test 36 15-37 code = Aspartate Amino Transf (AST/SGOT)) [facility]2019-07-10 05:35:00 Test Item Value Reference Range Interpretation Comments Alkaline Phosphatase (test code = 252 45-117 Alkaline Phosphatase) [facility]2019-07-10 05:35:00 Test Item Value Reference Range Interpretation Comments Albumin/Globulin Ratio (test code = 0.7 1 1.1-1.8 Albumin/Globulin Ratio) [facility]2019-07-10 05:35:00 Test Item Value Reference Range Interpretation Comments Albumin (test code = Albumin) 3.2 3.4-5.0 [facility]2019-07-10 05:35:00 Test Item Value Reference Range Interpretation Comments Alanine Aminotransferase (ALT/SGPT) 57 12-78 (test code = Alanine Aminotransferase (ALT/SGPT)) [facility]2019-07-10 05:35:00 Test Item Value Reference Range Interpretation Comments White Blood Count (test code = White 2.9 4.3-10.9 Blood Count) [facility]2019-07-10 05:35:00 Test Item Value Reference Range Interpretation Comments Red Cell Distribution Width (test code 17.2 12.1-15.2 = Red Cell Distribution Width) [facility]2019-07-10 05:35:00 Test Item Value Reference Range Interpretation Comments Red Blood Count (test code = Red Blood 3.49 3.86-4.86 Count) [facility]2019-07-10 05:35:00 Test Item Value Reference Range Interpretation Comments Platelet Count (test code = Platelet 116 152-406 Count) [facility]2019-07-10 05:35:00 Test Item Value Reference Range Interpretation Comments Neutrophils % (test code = Neutrophils 49.4 41.7-73.7 %) [facility]2019-07-10 05:35:00 Test Item Value Reference Range Interpretation Comments Monocytes % (test code = Monocytes %) 10.4 3.3-12.3 [facility]2019-07-10 05:35:00 Test Item Value Reference Range Interpretation Comments Mean Platelet Volume (test code = Mean 8.7 7.6-11.3 Platelet Volume) [facility]2019-07-10 05:35:00 Test Item Value Reference Range Interpretation Comments Mean Corpuscular Volume (test code = 98.2 80-100 Mean Corpuscular Volume) [facility]2019-07-10 05:35:00 Test Item Value Reference Range Interpretation Comments Mean Corpuscular Hemoglobin Concent 33.0 32.0-36.0 (test code = Mean Corpuscular Hemoglobin Concent) [facility]2019-07-10 05:35:00 Test Item Value Reference Range Interpretation Comments Mean Corpuscular Hemoglobin (test 32.4 pg 27.0-35.0 code = Mean Corpuscular Hemoglobin) [facility]2019-07-10 05:35:00 Test Item Value Reference Range Interpretation Comments Lymphocytes % (test code = Lymphocytes 30.3 15.3-44.8 %) [facility]2019-07-10 05:35:00 Test Item Value Reference Range Interpretation Comments Hemoglobin (test code = Hemoglobin) 11.3 12.0-15.0 [facility]2019-07-10 05:35:00 Test Item Value Reference Range Interpretation Comments Hematocrit (test code = Hematocrit) 34.3 36.0-45.0 [facility]2019-07-10 05:35:00 Test Item Value Reference Range Interpretation Comments Eosinophils % (test code 8.8 See_Comment [A utomated message] The = Eosinophils %) system [facility] generated this result tra nsmitted reference range : <=4.4. The reference r alba was not used to int erpret this result as normal/abnormal . [facility]2019-07-10 05:35:00 Test Item Value Reference Range Interpretation Comments Basophils % (test code 1.1 See_Comment [Aut omated message] The = Basophils %) system which generated this result tra nsmitted reference range : <=1.3. The reference r alba was not used to int erpret this result as normal/abnormal . [facility]2019-07-10 05:35:00 Test Item Value Reference Range Interpretation Comments Absolute Neutrophil (test code = 1.4 1.8-8.0 Absolute Neutrophil) [facility]2019-07-10 05:35:00 Test Item Value Reference Range Interpretation Comments Absolute Monocytes (CBC) (test code = 0.3 0.1-1.3 Absolute Monocytes (CBC)) [facility]2019-07-10 05:35:00 Test Item Value Reference Range Interpretation Comments Absolute Lymphocytes (CBC) (test code = 0.9 0.7-4.9 Absolute Lymphocytes (CBC)) [facility]2019-07-10 05:35:00 Test Item Value Reference Range Interpretation Comments Absolute Eosinophils 0.3 See_Comment [Autom ated message] The (CBC) (test code = system wh ich generated Absolute Eosinophils this re sult transmitted (CBC)) reference range : <=0.5. The reference r alba was not used to int erpret this result as normal/abnormal . [facility]2019-07-10 05:35:00 Test Item Value Reference Range Interpretation Comments Absolute Basophils 0.0 See_Comment [Automat ed message] The (CBC) (test code = system wh ich generated Absolute Basophils this resu lt transmitted (CBC)) reference range : <=0.5. The reference r alba was not used to int erpret this result as normal/abnormal . [facility]2019-07-09 05:43:00 Test Item Value Reference Range Interpretation Comments Prothrombin Time (test code = 12.9 9.5-12.5 Prothrombin Time) [facility]2019-07-09 05:43:00 Test Item Value Reference Range Interpretation Comments INR International Normalized Ratio 1.10 1 (test code = INR International Normalized Ratio) [facility]2019-07-09 05:43:00 Test Item Value Reference Range Interpretation Comments Triglycerides Level (test code = 89 Triglycerides Level) [facility]2019-07-09 05:43:00 Test Item Value Reference Range Interpretation Comments Phosphorus Level (test code = 6.3 2.5-4.9 Phosphorus Level) [facility]2019-07-09 05:43:00 Test Item Value Reference Range Interpretation Comments Magnesium Level (test code = Magnesium 2.3 1.8-2.4 Level) [facility]2019-07-09 05:43:00 Test Item Value Reference Range Interpretation Comments LDL Cholesterol, Calculated (test code 47 1 = LDL Cholesterol, Calculated) [facility]2019-07-09 05:43:00 Test Item Value Reference Range Interpretation Comments HDL Cholesterol (test code = HDL 57 40-60 Cholesterol) [facility]2019-07-09 05:43:00 Test Item Value Reference Range Interpretation Comments Cholesterol/HDL Ratio (test code = 2.14 1 Cholesterol/HDL Ratio) [facility]2019-07-09 05:43:00 Test Item Value Reference Range Interpretation Comments Cholesterol Level (test code = 122 Cholesterol Level) [facility]2019-07-08 19:49:00 Test Item Value Reference Range Interpretation Comments Troponin I (test code = 0.59 See_Comment [Au tomated message] The Troponin I) system which ge nerated this result tra nsmitted reference range : <=0.045. The reference r alba was not used to int erpret this result as normal/abnormal . [facility]2019-07-08 12:50:00 Test Item Value Reference Range Interpretation Comments Hepatitis B Surface Hepatitis B Surface Antigen (test code = Antigen Hepatitis B Surface Antigen) [facility]2019-07-08 12:50:00 Test Item Value Reference Range Interpretation Comments Hepatitis B Surface Hepatitis B Surface Antibody (test code = Antibody Hepatitis B Surface Antibody) [facility]2019-07-08 12:50:00 Test Item Value Reference Range Interpretation Comments Hepatitis B Core Total Hepatitis B Core Total Antibody (test code = Antibody Hepatitis B Core Total Antibody) [facility]2019-07-08 12:50:00 Test Item Value Reference Range Interpretation Comments Hepatitis C Antibody Hepatitis C Antibody (test code = Hepatitis C Antibody) [facility]2019-07-08 12:50:00 Test Item Value Reference Range Interpretation Comments Hepatitis C Ab Signal/Cutoff Ratio 0.05 ratio (test code = Hepatitis C Ab Signal/Cutoff Ratio) [facility]2019-07-08 07:36:00 Test Item Value Reference Range Interpretation Comments Rapid Troponin I (test 0.66 See_Comment [Aut omated message] The code = Rapid Troponin system which generated I) this result tra nsmitted reference range : <=0.045. The reference r alba was not used to int erpret this result as normal/abnormal . [id number] 07:36:00 Test Item Value Reference Range Interpretation Comments WH-Ktl-Q-Type Natriuretic Peptide (test 88620 code = AF-Fmm-K-Type Natriuretic Peptide) [facility]
[2022-05-31] MEDS ORDERED: METOPROLOL TAR 50 MG TAB ONE (12:37)
[2022-05-31] MEDS ORDERED: METOPROLOL TARTRATE 5 MG/5 ML INJ IV ONE (12:38)
--- NOTE | 2022-05-31 12:58 | EDPHYS ---
Physician Documentation [facility] Name: Qiana Valdez Age: 66 yrs Sex: Female : 1955 Arrival Date: 05/31/2022 Time: 11:41 Bed 6 Private MD: ED Physician Duane Snigh HPI: 05/31 12:42 This 66 yrs old Female presents to ER via Wheelchair with complaints of ford Palpitations, >160 HR. 12:42 The patient presents with a history of irregular heart beat, heart racing. Context: The ford symptoms occur with light activity. Onset: The symptoms/episode began/occurred just prior to arrival, this morning. Duration: The patient or guardian reports multiple episodes, with no pattern. Modifying factors: The symptoms are aggravated by nothing. The symptoms are alleviated by nothing. Associated signs and symptoms: Pertinent positives: chest pain, lightheadedness, SOB, near-syncope, vomiting. Severity of symptoms: At their worst the symptoms were mild in the emergency department the symptoms are unchanged. The patient has experienced similar episodes in the past, a few times. Historical: - Allergies: 11:53 No Known Allergies; iw - PMHx: 11:53 Chronic ischemic heart disease; Diabetes - IDDM; DIALYSIS MWF; ESRD; GERD; High iw Cholesterol; hyperparathyroidism; Hypertension; IRON DEFICIENCY ANEMIA; Myocardial infarction; Pacemaker; - PSHx: 11:53 Coronary artery bypass graft; iw - Immunization history:: Client reports receiving the 2nd dose of the Covid vaccine. - Social history:: Smoking status: Patient denies any tobacco usage or history of. ROS: 12:44 Constitutional: Negative for fever, chills, and weight loss, Eyes: Negative for injury, ford pain, redness, and discharge, ENT: Negative for injury, pain, and discharge, Neck: Negative for injury, pain, and swelling, Abdomen/GI: Negative for abdominal pain, nausea, vomiting, diarrhea, and constipation, Back: Negative for injury and pain, : Negative for injury, bleeding, discharge, and swelling, MS/Extremity: Negative for injury and deformity, Skin: Negative for injury, rash, and discoloration, Neuro: Negative for headache, weakness, numbness, tingling, and seizure, Psych: Negative for depression, anxiety, suicide ideation, homicidal ideation, and hallucinations, Allergy/Immunology: Negative for hives, rash, and allergies, Endocrine: Negative for neck swelling, polydipsia, polyuria, polyphagia, and marked weight changes, Hematologic/Lymphatic: Negative for swollen nodes, abnormal bleeding, and unusual bruising. 12:44 Cardiovascular: Positive for palpitations. 12:44 Respiratory: Positive for shortness of breath, at rest. Exam: 12:44 Constitutional: This is a well developed, well nourished patient who is awake, alert, ford and in no acute distress. Head/Face: Normocephalic, atraumatic. Eyes: Pupils equal round and reactive to light, extra-ocular motions intact. Lids and lashes normal. Conjunctiva and sclera are non-icteric and not injected. Cornea within normal limits. Periorbital areas with no swelling, redness, or edema. ENT: Nares patent. No nasal discharge, no septal abnormalities noted. Tympanic membranes are normal and external auditory canals are clear. Oropharynx with no redness, swelling, or masses, exudates, or evidence of obstruction, uvula midline. Mucous membranes moist. Neck: Trachea midline, no thyromegaly or masses palpated, and no cervical lymphadenopathy. Supple, full range of motion without nuchal rigidity, or vertebral point tenderness. No Meningismus. Chest/axilla: Normal chest wall appearance and motion. Nontender with no deformity. No lesions are appreciated. Abdomen/GI: Soft, non-tender, with normal bowel sounds. No distension or tympany. No guarding or rebound. No evidence of tenderness throughout. Back: No spinal tenderness. No costovertebral tenderness. Full range of motion. Female : Normal external genitalia. Skin: Warm, dry with normal turgor. Normal color with no rashes, no lesions, and no evidence of cellulitis. MS/ Extremity: Pulses equal, no cyanosis. Neurovascular intact. Full, normal range of motion. Neuro: Awake and alert, GCS 15, oriented to person, place, time, and situation. Cranial nerves II-XII grossly intact. Motor strength 5/5 in all extremities. Sensory grossly intact. Cerebellar exam normal. Normal gait. Psych: Awake, alert, with orientation to person, place and time. Behavior, mood, and affect are within normal limits. 12:44 Cardiovascular: Rate: tachycardic, actual rate is 150 bpm, Rhythm: irregularly irregular, Pulses: Pulses are 4+ in bilateral radial, brachial, femoral, popliteal, posterior tibial and and dorsalis pedis arteries.. Heart sounds: normal, Edema: is not appreciated, JVD: is noted bilaterally, to 1 cm. 12:44 ECG was reviewed by the Attending Physician. Vital Signs: 11:50 BP 158 / 80; Pulse 81; Resp 20 S; Temp 98.1(O); Pulse Ox 99% on 3 lpm NC; Weight 63 kg; iw Height 5 ft. 3 in. (160.02 cm); Pain 7/10; 12:59 BP 114 / 88; Pulse 153; Resp 26; Pulse Ox 98% ; jh5 13:03 BP 114 / 88; Pulse 150; kc6 13:08 BP 153 / 78; Pulse 153; kc6 13:15 BP 122 / 78; Pulse 70; Resp 18 S; Pulse Ox 97% on R/A; kc6 13:51 BP 122 / 78; Pulse 71; Pulse Ox 97% on R/A; ap3 15:44 BP 143 / 68; Pulse 76; Resp 19 S; Pulse Ox 96% on R/A; kc6 17:02 BP 139 / 77; Pulse 70; Resp 13 S; Pulse Ox 96% on 5 lpm NC; kc6 11:50 Body Mass Index 24.60 (63.00 kg, 160.02 cm) iw MDM: 11:42 Patient medically screened. ford 12:47 CAPRI Risk Score: 1 - 3 or more CAD risk factors, [Family HX] [HTN] [Elevated ford Cholesterol] [DM] 1 - Known CAD, 1 - ASA use in past 7 days, Total Score = 3. Antibiotic administration: Not indicated. Differential diagnosis: Anemia asthma, Bronchitis CHF exacerbation, Chronic Obstructive Pulmonary Disease arrythmia, dehydration, pneumonia. Differential Diagnosis flu. Differential diagnosis: cardiac arrhythmia, generalized weakness, near-syncope, syncope. Immunization status: Influenza vaccine: Data reviewed: vital signs, nurses notes, lab test result(s), EKG, radiologic studies, plain films. Consideration of Admission/Observation Patient was admitted/placed on observation. I considered the following discharge prescriptions or medication management in the emergency department Medications were administered in the Emergency Department. See MAR. Independent interpretation of the following test(s) in the Emergency Department EKG: See my EKG interpretation above X-Ray: My interpretation is CHEST XRAY. Test considered but Not performed: CT: CT CHEST. 05/31 12:14 Order name: Basic Metabolic Panel; Complete Time: 15:56 05/31 12:14 Order name: CBC with Diff; Complete Time: 13:15 05/31 12:14 Order name: PT-INR 05/31 12:14 Order name: Troponin HS; Complete Time: 15:56 05/31 12:21 Order name: TSH; Complete Time: 15:56 [facility] 05/31 12:22 Order name: Ptt, Activated; Complete Time: 14:18 [facility] 05/31 13:15 Order name: SARS RAPID; Complete Time: 14:18 [facility] 05/31 17:50 Order name: Ptt, Activated kc6 05/31 18:43 Order name: Troponin High Sensitivity [facility] 05/31 18:43 Order name: Troponin High Sensitivity [facility] 05/31 18:44 Order name: Troponin High Sensitivity [facility] 05/31 18:44 Order name: Lipid Profile [facility] 05/31 18:44 Order name: Magnesium [facility] 05/31 18:44 Order name: Phosphorus [facility] 05/31 12:14 Order name: XRAY Chest (1 view) 05/31 12:14 Order name: EKG; Complete Time: 12:15 05/31 12:21 Order name: Echo w/ Doppler [facility] 05/31 18:44 Order name: T4 Free [facility] 05/31 18:44 Order name: Thyroid Stimulating Hormone [facility] 05/31 18:44 Order name: Urinalysis [facility] 05/31 18:44 Order name: Basic Metabolic Panel [facility] 05/31 18:44 Order name: Basic Metabolic Panel [facility] 05/31 18:44 Order name: CBC with Automated Diff [facility] 05/31 18:44 Order name: CBC with Automated Diff [facility] 05/31 12:14 Order name: Cardiac monitoring; Complete Time: 12:18 05/31 12:14 Order name: EKG - Nurse/Tech; Complete Time: 12:17 05/31 12:14 Order name: IV Saline Lock; Complete Time: 13:10 05/31 12:14 Order name: Labs collected and sent; Complete Time: 13:10 05/31 12:14 Order name: O2 Per Protocol; Complete Time: 12:18 05/31 12:14 Order name: O2 Sat Monitoring; Complete Time: 12:18 iw 05/31 13:13 Order name: Labs - recollect needed: recollect light blue top; Complete Time: 13:39 bd 05/31 18:44 Order name: Heart Healthy EDMS EC:44 Rate is 74 beats/min. Rhythm is regular. QRS [place] is Normal. AR interval is normal. QRS ford interval is normal. QT interval is normal. No Q waves. T waves are Inverted in leads I, II, III, aVL, aVF, V1, V2, V3, V4, V5, V6. No ST changes noted. Clinical impression: Abnormal EKG without significant change and No evidence of ischemia. Interpreted by me. Reviewed by me. Administered Medications: 13:03 Drug: Lopressor (metoprolol TARTRATE) 50 mg Route: PO; kc6 14:42 Follow up: Response: No adverse reaction; Cardiac rhythm is unchanged kc6 13:03 Drug: Lopressor (metoprolol) 2.5 mg Route: IVP; Site: left forearm; kc6 14:42 Follow up: Response: No adverse reaction; Cardiac rhythm changed kc6 13:08 Drug: Lopressor (metoprolol) 2.5 mg Route: IVP; Site: left forearm; kc6 15:16 Follow up: Response: No adverse reaction; Cardiac rhythm changed kc6 13:32 Drug: Pepcid (famotidine) 20 mg Route: IVP; Site: left forearm; kc6 14:43 Follow up: Response: No adverse reaction kc6 14:33 Drug: Heparin ([place] Drip) 12 units/kg/hr - (HEParin 91449 units, D5W 500 ml) kc6 {Co-Signature: vg1 (Vivian Costello RN).} Route: IV; Rate: calculated rate; Site: left forearm; 15:12 Follow up: Response: No adverse reaction; IV Status: Infusion continued upon admission kc6 14:33 Drug: Heparin ([place]-Bolus No thrombolytic) - HEParin 60 units/kg {Co-Signature: vg1 connor6 (Vivian Costello RN).} Route: IVP; Site: left forearm; 15:12 Follow up: Response: No adverse reaction kc6 Disposition Summary: 05/31/22 12:57 Hospitalization Ordered Hospitalization Status: Observation ford Provider: Kalyan Lennon cha Location: Telemetry/MedSurg (observation) ford Condition: Stable ford Problem: new ford Symptoms: have improved ford Bed/Room Type: Standard ford Room Assignment: [id number](05/31/22 18:24) bd Diagnosis - Dyspnea ford - Type 1 diabetes mellitus with hyperglycemia ford - Paroxysmal atrial fibrillation ford - Presence of cardiac pacemaker ford - End stage renal disease - ON HD M,W,F(05/31/22 13:16) ford - Anemia, unspecified ford - Coronavirus infection, unspecified ford - Pneumonia due to SARS-associated coronavirus ford - Non ST elevation [place] ford Forms: - Medication Reconciliation Form ford - SBAR form ford Signatures: Dispatcher [employer] EDMS Sarah Deleon Corey, MD MD cha Williams, Irene RN Joycelyn Deal RN RN kc6 Vivian Costello RN vg1 Corrections: (The following items were deleted from the chart) 13:16 12:57 End stage renal disease - ON HD ford ford 18:24 12:57 ford bd
--- NOTE | 2022-05-31 12:58 | ER ---
Nurse's Notes [facility] Name: Qiana Valdez Age: 66 yrs Sex: Female : 1955 Arrival Date: 05/31/2022 Time: 11:41 Bed 6 Private MD: Diagnosis: Dyspnea;End stage renal disease-ON HD M,W,F;Type 1 diabetes mellitus with hyperglycemia;Paroxysmal atrial fibrillation;Presence of cardiac pacemaker;Anemia, unspecified;Coronavirus infection, unspecified;Pneumonia due to SARS-associated coronavirus;Non ST elevation NM Presentation: 05/31 11:50 Chief complaint: Patient states: was at dialysis and they told her her heart rate was iw 160, did not do dialysis, she sometimes gets chest palpitations and she takes isosorbide for it, she ran out this weekend but has refilled her prescription today. Coronavirus screen: At this time, the client does not indicate any symptoms associated with coronavirus-19. Ebola Screen: Patient negative for fever greater than or equal to 101.5 degrees Fahrenheit, and additional compatible Ebola Virus Disease symptoms Patient denies exposure to infectious person. Patient denies travel to an Ebola-affected area in the 21 days before illness onset. No symptoms or risks identified at this time. Initial Sepsis Screen: Does the patient meet any 2 criteria? No. Patient's initial sepsis screen is negative. Does the patient have a suspected source of infection? No. Patient's initial sepsis screen is negative. Risk Assessment: Do you want to hurt yourself or someone else? Patient reports no desire to harm self or others. Onset of symptoms was May 31, 2022. 11:50 Method Of Arrival: Wheelchair iw 11:50 Acuity: SIXTO 3 iw 12:14 Acuity: SIXTO 2 iw Historical: - Allergies: 11:53 No Known Allergies; iw - PMHx: 11:53 Chronic ischemic heart disease; Diabetes - IDDM; DIALYSIS MWF; ESRD; GERD; High iw Cholesterol; hyperparathyroidism; Hypertension; IRON DEFICIENCY ANEMIA; Myocardial infarction; Pacemaker; - PSHx: 11:53 Coronary artery bypass graft; iw - Immunization history:: Client reports receiving the 2nd dose of the Covid vaccine. - Social history:: Smoking status: Patient denies any tobacco usage or history of. Screenin:04 [facility] ED Fall Risk Assessment (Adult) History of falling in the last 3 months, kc6 including since admission No falls in past 3 months (0 pts) Confusion or Disorientation No (0 pts) Intoxicated or Sedated No (0 pts) Impaired Gait No (0 pts) Mobility Assist Device Used No (0 pt) Altered Elimination No (0 pt) Score/Fall Risk Level 0 - 2 = Low Risk Oriented to surroundings, Maintained a safe environment, Educated pt \T\ family on fall prevention, incl call for assistance when getting out of bed, Assessed \T\ reinforced patient's understanding of fall precautions, Hourly rounding (assess needs \T\ fall precautionary measures) done. Abuse screen: Denies threats or abuse. Denies injuries from another. Nutritional screening: No deficits noted. Tuberculosis screening: No symptoms or risk factors identified. Assessment: 12:03 General: Appears in no apparent distress. comfortable, Behavior is calm, cooperative, kc6 appropriate for age. Pain: Denies pain. Neuro: Barnett Agitation-Sedation Scale (RASS): 0 - Alert and Calm Level of Consciousness is awake, alert, obeys commands, Oriented to person, place, time, situation, Appropriate for age. Cardiovascular: Reports palpitations, shortness of breath, Denies chest pain, lightheadedness, Capillary refill < 3 seconds Rhythm is sinus rhythm Chest pain is denied Dialysis shunt: in the right arm, with palpable thrill, with auscultated bruit, with no erythema, with no edema, no bleeding noted. Respiratory: Airway is patent Trachea midline Respiratory effort is even, unlabored, Respiratory pattern is regular, symmetrical. GI: No signs and/or symptoms were reported involving the gastrointestinal system. : No signs and/or symptoms were reported regarding the genitourinary system. EENT: No signs and/or symptoms were reported regarding the EENT system. Derm: No signs and/or symptoms reported regarding the dermatologic system. Skin is intact, Skin is pink, warm \T\ dry. Musculoskeletal: No signs and/or symptoms reported regarding the musculoskeletal system. Circulation, motion, and sensation intact. Capillary refill < 3 seconds, Range of motion: intact in all extremities. 13:03 Reassessment: Patient appears in no apparent distress at this time. No changes from kc6 previously documented assessment. Patient and/or family updated on plan of care and expected duration. Pain level reassessed. Patient is alert, oriented x 3, equal unlabored respirations, skin warm/dry/pink. 13:32 Reassessment: spoke with inside lab for assistance with recollect. stated she is on her kc6 way. 14:03 Reassessment: Patient appears in no apparent distress at this time. No changes from kc6 previously documented assessment. Patient and/or family updated on plan of care and expected duration. Pain level reassessed. Patient is alert, oriented x 3, equal unlabored respirations, skin warm/dry/pink. 15:03 Reassessment: Patient appears in no apparent distress at this time. No changes from kc6 previously documented assessment. Patient and/or family updated on plan of care and expected duration. Pain level reassessed. Patient is alert, oriented x 3, equal unlabored respirations, skin warm/dry/pink. 16:03 Reassessment: Patient appears in no apparent distress at this time. No changes from kc6 previously documented assessment. Patient and/or family updated on plan of care and expected duration. Pain level reassessed. Patient is alert, oriented x 3, equal unlabored respirations, skin warm/dry/pink. 17:02 Reassessment: Patient appears in no apparent distress at this time. No changes from kc6 previously documented assessment. Patient and/or family updated on plan of care and expected duration. Pain level reassessed. Patient is alert, oriented x 3, equal unlabored respirations, skin warm/dry/pink. 18:30 Reassessment: patient to dialysis. kc6 18:52 Reassessment: attempted to call report to 4th floor. Hannah stated she is going to find [facility] the nurse taking the patient and will call back. Vital Signs: 11:50 BP 158 / 80; Pulse 81; Resp 20 S; Temp 98.1(O); Pulse Ox 99% on 3 lpm NC; Weight 63 kg; iw Height 5 ft. 3 in. (160.02 cm); Pain 7/10; 12:59 BP 114 / 88; Pulse 153; Resp 26; Pulse Ox 98% ; jh5 13:03 BP 114 / 88; Pulse 150; kc6 13:08 BP 153 / 78; Pulse 153; kc6 13:15 BP 122 / 78; Pulse 70; Resp 18 S; Pulse Ox 97% on R/A; kc6 13:51 BP 122 / 78; Pulse 71; Pulse Ox 97% on R/A; ap3 15:44 BP 143 / 68; Pulse 76; Resp 19 S; Pulse Ox 96% on R/A; kc6 17:02 BP 139 / 77; Pulse 70; Resp 13 S; Pulse Ox 96% on 5 lpm NC; kc6 11:50 Body Mass Index 24.60 (63.00 kg, 160.02 cm) iw ED Course: 11:41 Patient arrived in ED. am2 11:42 Duane Singh MD is Attending Physician. ford 11:53 Triage completed. iw 11:53 Arm band placed on. iw 11:55 Joycelyn Laura, RN is Primary Nurse. kc6 11:58 EKG done, by ED staff, reviewed by Duane Singh MD. iw 12:04 Patient has correct armband on for positive identification. Bed in low position. Call kc6 light in reach. Side rails up X2. Adult w/ patient. 12:52 Kalyan Lennon is Hospitalizing Provider. ford 12:59 Inserted saline lock: 22 gauge in left forearm, using aseptic technique. Blood jh5 collected. 13:26 XRAY Chest (1 view) In Process Unspecified. EDMS 13:32 SARS RAPID Sent. kc6 17:58 Ptt, Activated Sent. kc6 19:08 No provider procedures requiring assistance completed. Patient admitted, IV remains in kc6 place. Administered Medications: 13:03 Drug: Lopressor (metoprolol TARTRATE) 50 mg Route: PO; kc6 14:42 Follow up: Response: No adverse reaction; Cardiac rhythm is unchanged kc6 13:03 Drug: Lopressor (metoprolol) 2.5 mg Route: IVP; Site: left forearm; kc6 14:42 Follow up: Response: No adverse reaction; Cardiac rhythm changed kc6 13:08 Drug: Lopressor (metoprolol) 2.5 mg Route: IVP; Site: left forearm; kc6 15:16 Follow up: Response: No adverse reaction; Cardiac rhythm changed kc6 13:32 Drug: Pepcid (famotidine) 20 mg Route: IVP; Site: left forearm; kc6 14:43 Follow up: Response: No adverse reaction kc6 14:33 Drug: Heparin (NM Drip) 12 units/kg/hr - (HEParin 12202 units, D5W 500 ml) kc6 {Co-Signature: vg1 (Vivian Costello RN).} Route: IV; Rate: calculated rate; Site: left forearm; 15:12 Follow up: Response: No adverse reaction; IV Status: Infusion continued upon admission kc6 14:33 Drug: Heparin (NM-Bolus No thrombolytic) - HEParin 60 units/kg {Co-Signature: vg1 kc6 (Vivian Costello RN).} Route: IVP; Site: left forearm; 15:12 Follow up: Response: No adverse reaction kc6 Medication: 19:08 VIS not applicable for this client. kc6 Outcome: 12:57 Decision to Hospitalize by Provider. ford 19:08 Admitted to Med/surg accompanied by nurse, via stretcher, room 418, with oxygen, with kc6 chart, Report called to SUNITA Young 19:08 Condition: stable 19:08 Instructed on the need for admit. 19:09 Patient left the ED. kc6 Signatures: Dispatcher [employer] EDMS Duane Singh MD MD cha Williams, Irene, RN RN iw Irina Mcknight am2 Irina Barber RN RN ap3 Cynthia Duarte RN RN jh5 Joycelyn Laura RN RN connor6 Vivian Costello RN vg1 Corrections: (The following items were deleted from the chart) 11:54 11:50 Acuity: SIXTO 2 iw iw 12:14 11:50 BP 158 / 80; Pulse 81bpm; Resp 20bpm; Spontaneous; Pulse Ox 99% 3 lpm Nasal iw Cannula; 63 kg; Height 5 ft. 3 in.; BMI: 24.6; Pain 7/10; iw 17:01 12:03 Cardiovascular: Capillary refill < 3 seconds Rhythm is sinus rhythm Chest pain is kc6 denied kc6 17:02 12:03 Cardiovascular: Capillary refill < 3 seconds Rhythm is sinus rhythm Chest pain is kc6 denied Dialysis shunt: in the right arm, with palpable thrill, with auscultated bruit, with no erythema, with no edema, no bleeding noted kc6
[2022-05-31 13:07] LABS: Absolute Lymphocytes (CBC) 1.1 K/uL (0.7-4.9); Hematocrit 29.1 % (36.0-45.0); MCV 95.4 fL (80-100); MPV 8.5 fL (7.6-11.3); RBC Red Blood Cell Count 3.05 M/uL (3.86-4.86)
[2022-05-31] MEDS ORDERED: FAMOTIDINE 20 MG/2 ML VIAL IV ONE (13:21)
[2022-05-31 13:48] LABS: SARS-CoV-2 Antigen Rapid Res Positive (Negative)
[2022-05-31 13:55] LABS: Potassium 4.3 mmol/L (3.5-5.1)
[2022-05-31] MEDS ORDERED: HEPARIN 5000 UNIT/ML 1 ML VIAL ONE (14:27)
[2022-05-31] MEDS ORDERED: HEPARIN/D5W 25,000 UNIT/500 ML BAG IV ONE (14:27)
[2022-05-31 14:46] LABS: Troponin High Sensitivity 470.2 pg/mL (<58.9)
[2022-05-31] MEDS ORDERED: HYDROCODONE/APAP 5/325 MG TAB PO PRN (17:16)
[2022-05-31] MEDS ORDERED: ACETAMINOPHEN 325 MG TABLET PO PRN (17:16)
[2022-05-31] MEDS ORDERED: ONDANSETRON 4 MG/2 ML VIAL IV PRN (17:21)
--- NOTE | 2022-05-31 17:24 | P.HP ---
Certification for Inpatient Patient admitted to: Inpatient With expected LOS: >2 Midnights Patient will require the following post-hospital care: None Practitioner: I am a practitioner with admitting privileges, knowledge of patient current condition, hospital course, and medical plan of care. Services: Services provided to patient in accordance with Admission requirements found in Title 42 Section 412.3 of the Code of Federal Regulations Patient History Date of Service: 06/01/22 Reason for admission: Palpitations History of Present Illness: Patient is a 66-year-old female with a past medical history significant for DM 2, ESRD, HLD, hypertension, ANDRY, CA, pacemaker, CABG who presents with complaint of palpitations onset yesterday. Patient also reports epigastric pain that has been ongoing for the past 1 month intermittently. Patient rated pain as 7 out of 10 in severity and described pain as sharp in quality. Patient reported asso ciated signs and symptoms of shortness of breath and headache. Patient denies any other signs or symptoms. Symptoms are aggravated or relieved by nothing. Patient reported that she went to dialysis today but could not undertake dialysis due to complaints of palpitations. Patient had to be sent to the ER for further evaluation. Allergies No Known Allergies Allergy (Verified 04/02/22 00:05) Home Medications: Atorvastatin Calcium [Lipitor] 40 mg PO BEDTIME #30 tab 01/10/22 Sucroferric Oxyhydroxide [Velphoro] 1,000 mg PO TIDWM 04/01/22 Trazodone [Desyrel*] 50 mg PO BEDTIME 04/01/22 Codeine/APAP [Tylenol #3*] 1 tab PO Q8H PRN #10 tab 04/08/22 Isosorbide Mononitrate [Isosorbide Mononitrate ER] 60 mg PO DAILY 30 Days #30 tab 04/08/22 Metoprolol Tartrate 100 mg PO DAILY 05/31/22 NIFEdipine [Nifedipine ER] 60 mg PO DAILY 05/31/22 - Past Medical/Surgical History Diabetic: Yes -: Hypertension -: Type 2 Diabetes Mellitus, Non-Insulin Dependent -: ESRD - MWF -: CAD with prior stent S/P CABG -: Hyperlipidemia -: GERD -: Anemia of chronic disease with iron deficiency -: Hyperparathyroidism -: Diabetic neuropathy -: Diabetic neuropathy -: COVID-19 01/21/2020 -: Triple bypass 2016 -: Pacemaker -: Tubal ligation -: Fistula aneursym reconstruction 4 times -: Bilateral cataract surgery Psychosocial/ Personal History: Lives at home with daughter - Family History Mother -: Heart disease, Diabetes Father -: Heart disease, Diabetes - Social History Smoking Status: Never smoker Alcohol use: No CD- Drugs: No Caffeine use: Yes Place of Residence: Home Review of Systems General: Unremarkable Eyes: Unremarkable ENT: Unremarkable Respiratory: Shortness of Breath Cardiovascular: Unremarkable Gastrointestinal: Abdominal Pain Genitourinary: Unremarkable Musculoskeletal: Unremarkable Integumentary: Unremarkable Neurological: Unremarkable Lymphatics: Unremarkable Physical Examination - Physical Exam General: Alert, In no apparent distress, Oriented x3, Cooperative HEENT: Atraumatic, PERRLA, Mucous membr. moist/pink, EOMI, Sclerae nonicteric Neck: Supple, 2+ carotid pulse no bruit, No LAD, Without JVD or thyroid abnormality Respiratory: Clear to auscultation bilaterally, Normal air movement Cardiovascular: No edema, Regular rate/rhythm, Normal S1 S2 Capillary refill: <2 Seconds Gastrointestinal: Normal bowel sounds, Non-distended, No tenderness Musculoskeletal: No clubbing, No swelling, No tenderness Integumentary: No rashes, No breakdown, No significant lesion Neurological: Normal speech, Normal tone, Normal affect Lymphatics: No axilla or inguinal lymphadenopathy - Studies Laboratory Data (last 24 hrs) 05/31/22 13:36: APTT 32.1 05/31/22 12:50: WBC 4.70, Hgb 9.5 L, Hct 29.1 L, Plt Count 140 L 05/31/22 12:50: Sodium 129 L, Potassium 4.3, BUN 71 H, Creatinine 6.63 H*, Glucose 183 H Assessment and Plan - Plan --A-fib with RVR. Patient given metoprolol IV in the ER. Repeat EKG indicates normal sinus rhythm and incomplete right bundle branch block. Cardiology consulted. Patient started on heparin drip in the ER. Will await further recommendation from project designer. --Elevated Troponin. We will continue to trend troponin levels--levels trending down. Information Receptionist on board. Telemetry to monitor for any significant arrhythmia. Continue heparin drip. Further management per project designer --History of CAD\CABG. Continue aspirin and heparin drip. --ESRD. Nephrology consulted. Dialysis schedule per product management analyst. --Headache. Tylenol as needed. --Hyponatremia. Further management per product management analyst. --COVID-19 infection. Patient asymptomatic. Continue supportive care. --Hypertension. Poorly controlled. Continue home medications and labetalol prn -- Hyperlipidemia. Continue statin. --ANDRY. Continue home medication. --DVT prophylaxis with heparin drip. Discharge Plan: Home Plan to discharge in: Greater than 2 days - Advance Directives Does patient have a Living Will: Yes Does patient have a Durable POA for Healthcare: No - Code Status/Comfort Care Code Status Assessed: Yes Physician Review: Patient Assessed, Agree with Above Assessment and Plan Critical Care: No
--- NOTE | 2022-05-31 17:34 | RAD REPORT ---
[facility] 5[facility]26 pm CLINICAL HISTORY: CHEST PAIN COMPARISON: Chest Single View dated 04/01/2022; Chest Single View dated 01/18/2022; Chest Single Vie w dated 01/08/2022; Chest Single View dated 12/11/2021 TECHNIQUE: Portable AP view of the chest. FINDINGS: Persistent patchy right basal opacification within moderate effusion. No pneumothorax. Sta ble cardiomegaly. . The mediastinal contours are unchanged. Sequelae of median sternotomy. Stable pos itioning of right chest wall dual lead pacer/AICD. . IMPRESSION: Stable findings as above, no other acute process is identified radiographically.
[2022-05-31] MEDS ORDERED: HEPARIN/D5W 25,000 UNIT/500 ML BAG IV PRN (18:00)
--- NOTE | 2022-05-31 18:37 | EKG ---
Test Date: 2022-05-31 Test Time: 11:53:15 Supervisor [employer]: KALPESH MEASUREMENT RESULTS: Intervals: Rate: 74 NM: 132 QRSD: 118 QT: 468 QTc: 519 [place]lin: P: 61 NM: 132 QRS: 31 T: 262 INTERPRETIVE STATEMENTS: Normal sinus rhythm Incomplete right bundle branch block T wave abnormality, consider inferior ischemia Prolonged QT Abnormal ECG Compared to ECG 04/01/2022 20:07:12 Incomplete right bundle-branch block now present T-wave abnormality now present Possible ischemia now present Prolonged QT interval now present Right bundle-branch block no longer present Electronically Signed On 05-31-22 18:36:47 MICRO COMPUTER DATA PROCESSOR by Bradley Santamaria
[2022-05-31 21:41] LABS: Protime INR 1.36
[2022-05-31 21:59] LABS: Magnesium 2.4 mg/dL (1.6-2.4); Phosphorus 2.7 mg/dL (2.5-4.9); Thyroid Stimulating Hormone 1.67 uIU/mL (0.358-3.740)
[2022-05-31] MEDS: METOPROLOL TAR 25 MG TAB PO SCH (23:15)
[2022-05-31] MEDS ORDERED: BENZONATATE 100 MG CAP PO PRN (23:48)
[2022-06-01 00:01] VITALS: BMI 25.3
[2022-06-01] MEDS ORDERED: D50W 25 GM/50 ML SYRINGE IV PRN ×2 (03:22→03:23)
[2022-06-01] MEDS ORDERED: GLUCAGON 1 MG/VIAL IM PRN ×2 (03:22→03:23)
[2022-06-01] MEDS ORDERED: D10W 125 ML IV PRN (03:25)
[2022-06-01] MEDS ORDERED: INSULIN -REGULAR HUMAN 50 UNIT/0.5 ML ML SQ ONE (03:30)
[2022-06-01] MEDS ORDERED: ACETAMINOPHEN 500 MG TAB PO PRN (04:34)
--- NOTE | 2022-06-01 05:35 | CON ---
Date of Consultation: 05/31/2022 Chief Complaint: Tachycardia, chest discomfort, shortness of breath. History Of Present Illness: The patient is admitted to the hospital because of generalized weakness. She was found to have tachycardia, heart rate was up to 150 and the patient was referred from [facility] to emergency room. The patient came to dialysis center for routine dialysis and pre-[facility] assessment was done. The patient was found to have heart rate of 150. She was complaining of so me shortness of breath and chest discomfort and was referred to emergency room. The patient has mult iple medical problems including history of coronary artery disease and bypass surgery was done in . She has a pacemaker. When in the emergency room, she had pace rate and heart rate was already in 70. Lab work revealed elevated troponin. The patient is admitted to the hospital for possible acut e coronary syndrome and she is scheduled to have dialysis to control congestive heart failure. The p atient was found to have hyponatremia due to fluid overload. She is asymptomatic as far as hyponatre brett symptom and currently she denies chest pain. Shortness of breath, resolved. Review of Systems: General: She denies fever, chills. Eyes: Denies vision changes. Ears, Nose, Mouth, And Throat: Denies sore throat or earache. Respiratory: She has dyspnea on exertion. Denies hemoptysis, wheezing. GI: Denies nausea, vomiting. : Denies dysuria or hematuria. Musculoskeletal: Denies muscle aches or joint swelling. All other systems reviewed and all are negative. Past Medical History: Hypertension; diabetes mellitus, type 2; end-stage renal disease, dialysis on Tuesday, Tuesday, Tuesday; coronary artery disease with prior history of stent and status post CABG; hyperlipidemia; GERD; anemia of chronic disease with iron deficiency; hyperparathyroid; diabetic neur opathy; nephropathy; COVID-19 January 21, 2020; triple bypass; pacemaker; tubal ligation; fistula; __ and reconstruction of the dialysis access; bilateral cataract surgery. Family History: Mother; heart disease and diabetes mellitus. Father; hypertension, diabetes mellitu s. Social History: Denies tobacco, alcohol, or illicit drugs. Physical Examination: General: The patient is awake, alert, follows commands. Eyes: Anicteric sclerae. EOMI. Ears, Nose, Mouth, And Throat: Oral mucosa moist. No pallor. Neck: Supple. No bruits. Lungs: Few rhonchi. Crackles bilaterally at bases. Heart: S1, S2. Abdomen: Soft, benign. Extremities: Slight edema. Laboratory Data: Sodium 129, potassium 4.3, BUN 71, creatinine 6.63, glucose 183. Hemoglobin 9.5, W BC 4.7, platelet count 114. Impression And Plan: 1.Congestive heart failure, acute on chronic with diastolic and systolic dysfunction. The patient h as mild fluid overload. The patient will have dialysis with ultrafiltration as soon as possible. Pl an is to adjust dialysis parameters in view of possible acute coronary syndrome. At this point, the patient is asymptomatic, although she was found to have elevated troponin and workup will be done by Cardiology for acute coronary syndrome. 2.Hypertension. Continue blood pressure medication. 3.Anemia, chronic kidney disease. Hemoglobin is 9.5. Resume MELA. 4.Renal osteodystrophy. Continue renal diet and binders. 5.Diabetes mellitus. Continue insulin. 6.Cardiac arrhythmia. Further recommendation from Cardiology. GLENYS/MODL Voice ID: [id number] Report ID: [id number]
[2022-06-01] MEDS: METOPROLOL TAR 25 MG TAB PO SCH ×2 (05:58→17:13)
[2022-06-01 06:24] LABS: Absolute Lymphocytes (CBC) 0.8 K/uL (0.7-4.9); Hematocrit 25.9 % (36.0-45.0); Lymphocytes % 26.1 % (15.3-44.8); MCV 94.3 fL (80-100); MPV 8.3 fL (7.6-11.3); RBC Red Blood Cell Count 2.75 M/uL (3.86-4.86)
[2022-06-01 06:41] LABS: Potassium 3.5 mmol/L (3.5-5.1)
[2022-06-01] MEDS: INSULIN -REGULAR HUMAN 50 UNIT/0.5 ML ML SQ SCH ×4 (07:30→21:00)
[2022-06-01 07:55] LABS: Anisocytosis 1+; Blood Morphology Comment NOTED (NOT SEEN); Platelet Estimate DECR; White Blood Cell Scan OK (OK)
[2022-06-01] MEDS: SEVELAMER CARBONATE 800 MG TABLET PO SCH ×3 (09:45→17:13)
[2022-06-01] MEDS: ASPIRIN 81 MG CHEWABLE TABLET PO SCH (09:45)
[2022-06-01] MEDS: FOLIC ACID 1 MG TABLET PO SCH (09:45)
[2022-06-01] MEDS: LABETALOL 20 MG/4ML SYRINGE IV PRN ×2 (12:16→22:36)
[2022-06-01] MEDS ORDERED: D10W 250 ML BAG IV PRN (15:00)
[2022-06-01] MEDS ORDERED: EPOETIN ALFA 10,000 UNIT/ML VIAL IV SCH (15:00)
--- NOTE | 2022-06-01 16:33 | PN ---
Date of Progress Note: 06/01/2022 Subjective: The patient was admitted with COVID. The patient is scheduled for dialysis Tuesday, , Tuesday. Physical Examination: Vital Signs: Blood pressure 170/77, pulse of 70, afebrile. Chest: Faint rales bilateral. Heart: S1, S2. Systolic murmur. Abdomen: Soft, nontender. Extremity: Trace edema. Neurologic: Alert. No focality. Laboratory Data: Hemoglobin 8.5. Sodium 134, potassium 3.5, bicarb 30, BUN 39, creatinine 4.2, calc ium 8.3. Current Medications: The patient on include; 1.Aspirin. 2.Heparin drip. 3.Metoprolol 25 b.i.d. 4.Tylenol. 5.Folic acid. Assessment And Plan: 1.End-stage renal disease, slightly on the wet side. I am going to go ahead and arrange for the bette lysis and we will challenge the patient on dialysis. 2.Hypertension, controlled, not optimal. We will utilize blood pressure for more ultrafiltration. 3.Hyponatremia will be corrected with dialysis. 4.Anemia of chronic kidney disease. We will resume MELA. 5.Diabetes as by primary. 6.Renal artery stenosis with recurrent over volume, status post stenting. We will continue to chall enge the patient. 7.Coronary artery disease. We will follow up with Cardiology. Continue heparin drip. 8.COVID as by hospitalist. LEIGHANN Voice ID: [id number] Report ID: [id number]
--- NOTE | 2022-06-01 18:32 | CON ---
Date of Consultation: 06/01/2022 Reason For Consultation: Elevated troponin. History Of Present Illness: This is a 66-year-old female, history of end-stage renal disease, on hem odialysis, coronary artery disease, diabetes, dyslipidemia, status post CABG, hypertension, who prese nted to the hospital with palpitations. She apparently had some nausea earlier. She could not take the metoprolol, she missed 4 doses. Heart rate was slightly fast and then she denies having any ches t pain. The patient has chronic positive COVID and chronic leak of her troponin at any time her test are ran. Past Medical History: As outlined above in HPI. Medications: Refer to reconciliation sheet for detailed list. Allergies: NO KNOWN DRUG ALLERGIES. Family History: No premature coronary artery disease or cancer. Social History: She is not a smoker. Does not drink or use any drugs. Review of Systems: All systems reviewed and they were negative except what mentioned in HPI. Physical Examination: Vital Signs: Reviewed. Head and Neck: Pupils are equal, reactive to light. Intact eye movements. No JVD. No cervical lym phadenopathy. Neck is supple. Thyroid is not enlarged. Lungs: Clear to auscultation bilaterally. No rhonchi, wheezing, or crackles. No accessory muscle u se. Heart: Irregular. No extra sounds. Abdomen: Soft, nontender. Bowel sounds positive. No organomegaly. No masses or hernia. No rigidi ty or rebound. Extremities: No clubbing or cyanosis. Intact pulses. Skin: No rash. Neurologic: Alert, awake, oriented x3. No acute focal deficits appreciated. Investigations: Troponin 470, then 439, 412. BUN 39, creatinine is 4.2. Assessment And Recommendations: 1.Palpitations, probably due to the fact that she did not take the metoprolol, so agree with 25 mg t wice a day and then increase the dose to 50 mg twice a day and adjust further to keep the heart rate close to 60 and to manage her blood pressure as well. 2.Hypertension, uncontrolled. Resume home medications. Adjust further if needed. 3.Elevated troponin. This is chronic. She has no chest pain. We will continue to monitor. 4.End-stage renal disease requiring inpatient hemodialysis. SR/MODL Voice ID: [id number] Report ID: [id number]
--- NOTE | 2022-06-01 22:41 | P.PN ---
Date of Service: 06/01/22 Subjective: no acute events overnight feeling better continues with some chest discomfort, tenderness ROS: A complete review of systems was performed and is negative except as mentioned above Physical Exam: Gen: NAD, AOx3 HEENT: normal conjunctiva, sclera anicteric CV: regular rate & rhythm, no edema Pulm: non-labored respirations on 2L NC, clear bilaterally Abd: soft, non-tender, non-distended MSK: tenderness with palpation of sternum Neuro: normal speech, normal affect, moves all extremities vitals reviewed Problem List NSTEMI COVID-19 positive h/o CAD, s/p CABG Chronic diastolic CHF h/o infective endocarditis ESRD on HD MWF Diabetes mellitus type 2insulin-dependent Hypertension Hyperlipidemia Iron deficiency anemia Thrombocytopenia, chronic Hyponatremia Patient seen by cardiology-Dr. Santamaria. Troponin trended flat; lower than prior admissions no further inpatient workup warranted recommended to ensure pt is on a high dose metoprolol as tolerated pt states she ran out of her metoprolol for aprox 3-4 days prior to admission confirm home meds, restart as appropriate Continue home antihypertensives. Hemodialysis per nephrology. Patient is asymptomatic from COVID-19 infection. improving Dispo: home, ~1-2 day
[2022-06-01] MEDS ORDERED: MELATONIN 5 MG TABLET PO PRN (23:00)
[2022-06-02] MEDS ORDERED: METOPROLOL TAR 50 MG TAB PO SCH (06:00)
[2022-06-02] MEDS: INSULIN -REGULAR HUMAN 50 UNIT/0.5 ML ML SQ SCH ×2 (07:30→11:30)
[2022-06-02] MEDS: SEVELAMER CARBONATE 800 MG TABLET PO SCH ×2 (08:00→12:00)
[2022-06-02 09:10] LABS: Absolute Lymphocytes (CBC) 0.8 K/uL (0.7-4.9); Hematocrit 28.3 % (36.0-45.0); Lymphocytes % 27.3 % (15.3-44.8); MCV 95.3 fL (80-100); MPV 8.2 fL (7.6-11.3); RBC Red Blood Cell Count 2.97 M/uL (3.86-4.86)
[2022-06-02 09:42] VITALS: O2SAT 94
[2022-06-02 09:50] LABS: Potassium 3.8 mmol/L (3.5-5.1)
[2022-06-02] MEDS: FOLIC ACID 1 MG TABLET PO SCH (10:47)
[2022-06-02] MEDS: ASPIRIN 81 MG CHEWABLE TABLET PO SCH (10:47)
--- NOTE | 2022-06-02 12:05 | P.DS ---
Admission Date: 05/31/22 Discharge Date: 06/02/22 Disposition: ROUTINE DISCHARGE Reason for Admission: Palpitations Consultations: Cardiology - Dr. Santamaria Nephrology - Dr. Singh Brief History of Present Illness: Patient is a 66-year-old female with a past medical history significant for DM 2, ESRD, HLD, hypertension, ANDRY, OR, pacemaker, CABG who presents with complaint of palpitations onset yesterday. Patient also reports epigastric pain that has been ongoing for the past 1 month intermittently. Patient rated pain as 7 out of 10 in severity and described pain as sharp in quality. Patient reported associated signs and symptoms of shortness of breath and headache. Patient denies any other signs or symptoms. Symptoms are aggravated or relieved by nothing. Patient reported that she went to dialysis today but could not undertake dialysis due to complaints of palpitations. Patient had to be sent to the ER for further evaluation. Hospital Course: Problem List NSTEMI COVID-19 positive h/o CAD, s/p CABG Chronic diastolic CHF h/o infective endocarditis ESRD on HD MWF Diabetes mellitus type 2insulin-dependent Hypertension Hyperlipidemia Iron deficiency anemia Thrombocytopenia, chronic Hyponatremia Patient's heart rate improved after restarting her metoprolol. Cardiology and Nephrology were consulted. Troponin was mildly elevated - at a much lower level than before, and chronically elevated. She underwent dialysis and was monitored on telemetry without any events. She felt well and was stable for discharge home. She will go to dialysis clinic today and resume her scheduled dialysis. Follow up: PCP Within a few days Nephrology in a few weeks Cardiology in a few weeks Vital Signs/Physical Exam: Temp Pulse Resp BP Pulse Ox 96.9 F 68 16 164/83 H 96 06/02/22 08:00 06/02/22 08:00 06/02/22 08:00 06/02/22 08:00 06/02/22 08:00 Physical Exam: Gen: NAD, AOx3 HEENT: normal conjunctiva, sclera anicteric CV: regular rate & rhythm, no edema Pulm: non-labored respirations on 2L NC, clear bilaterally Abd: soft, non-tender, non-distended MSK: tenderness with palpation of sternum Neuro: normal speech, normal affect, moves all extremities General: In no apparent distress, Oriented x3 Laboratory Data at Discharge: WBC 3.00 K/uL (4.3-10.9) L 06/02/22 08:52 Hgb 9.2 g/dL (12.0-15.0) L D 06/02/22 08:52 Hct 28.3 % (36.0-45.0) L 06/02/22 08:52 Plt Count 129 K/uL (152-406) L 06/02/22 08:52 PT 15.0 SECONDS (9.5-12.5) H 05/31/22 21:27 INR 1.36 05/31/22 21:27 APTT 33.2 SECONDS (24.3-36.9) 06/02/22 08:52 Sodium 130 mmol/L (136-145) L 06/02/22 08:52 Potassium 3.8 mmol/L (3.5-5.1) 06/02/22 08:52 BUN 56 mg/dL (7-18) H 06/02/22 08:52 Creatinine 5.38 mg/dL (0.55-1.02) H* 06/02/22 08:52 Glucose 123 mg/dL (74-106) H 06/02/22 08:52 Phosphorus 2.7 mg/dL (2.5-4.9) 05/31/22 21:27 Magnesium 2.4 mg/dL (1.6-2.4) 05/31/22 21:27 Triglycerides 50 mg/dL (<150) 06/01/22 05:54 Cholesterol 103 mg/dL (<200) 06/01/22 05:54 HDL Cholesterol 41 mg/dL (40-60) 06/01/22 05:54 Cholesterol/HDL Ratio 2.51 06/01/22 05:54 Home Medications: Atorvastatin Calcium [Lipitor] 40 mg PO BEDTIME #30 tab 01/10/22 Sucroferric Oxyhydroxide [Velphoro] 1,000 mg PO TIDWM 04/01/22 Trazodone [Desyrel*] 50 mg PO BEDTIME 04/01/22 Codeine/APAP [Tylenol #3*] 1 tab PO Q8H PRN #10 tab 04/08/22 Isosorbide Mononitrate [Isosorbide Mononitrate ER] 60 mg PO DAILY 30 Days #30 tab 04/08/22 Metoprolol Tartrate 100 mg PO DAILY 05/31/22 NIFEdipine [Nifedipine ER] 60 mg PO DAILY 05/31/22 Physician Discharge Instructions: Patient's heart rate improved after restarting her metoprolol. Cardiology and Nephrology were consulted. Troponin was mildly elevated - at a much lower level than before, and chronically elevated. She underwent dialysis and was monitored on telemetry without any events. She felt well and was stable for discharge home. She will go to dialysis clinic today and resume her scheduled dialysis. Follow up: PCP Within a few days Nephrology in a few weeks Cardiology in a few weeks Followup: Rosio Jackson MD [ACTIVE - CAN ADMIT] - Bradley Santamaria MD [ACTIVE - CAN ADMIT] - Robert Knapp MD [Primary Care Provider] - Time spent managing pt's care (in minutes): 45
[2022-06-02 12:15] VITALS: BP 157/77; TEMP 96.8
--- NOTE | 2022-06-02 13:37 | PN ---
Date of Progress Note: 06/02/2022 Subjective: The patient was admitted with chest pain, shortness of breath, COVID pneumonia. The pat ient had been dialyzed on Tuesday. The patient feeling okay. Physical Examination: Vital Signs: Blood pressure , pulse of 68, afebrile. Chest: Clear to auscultation. Heart: S1, S2. Regular. Abdomen: Soft, nontender. Extremity: AV fistula on the right arm. Enlargement on the right breast. No edema. Neurologic: Alert. No focality. Laboratory Data: Hemoglobin 9.2. Sodium 130, potassium 3.8, bicarb 26, BUN 56, creatinine 5.3, calc ium 8.3. Assessment And Plan: 1.End-stage renal disease with over volume, status post dialysis, currently normal volume. We will continue dialysis Tuesday, Tuesday, Tuesday. I will arrange for the dialysis as outpatient. The pat ient cleared for discharge planning. 2.Anemia of chronic kidney disease. Continue MELA. 3.Secondary hyperparathyroidism, stable. 4.Breast enlargement, possible secondary to venous stasis from the AV fistula. We will send for the workup as outpatient. 5.Over volume, status post dialysis, back to normal volume. Continue dialysis Tuesday, Tuesday, Fr waggoner. LEIGHANN Voice ID: [id number] Report ID: [id number]
== END 2022-06-02 13:05 | disposition home or self-care (01) | DRG 280 ==
LOC: ER 11:37 → ERHOLD 17:16 → 4TH 19:21
PROVIDERS: ADMIT Internal Medicine; ATTEND Hospitalist
PROC: 5A1D70Z Performance of Urinary Filtration, Intermittent, Less than 6 Hours Per Day (ICD-10-PCS; principal; 2022-05-31)
DX: I21.4 Non-ST elevation (NSTEMI) myocardial infarction (principal); N18.6 End stage renal disease; U07.1 COVID-19; I13.2 Hypertensive heart and chronic kidney disease with heart failure and with stage 5 chronic kidney disease, or end stage renal disease; E87.1 Hypo-osmolality and hyponatremia; N25.81 Secondary hyperparathyroidism of renal origin; I50.32 Chronic diastolic (congestive) heart failure; I48.0 Paroxysmal atrial fibrillation; E11.22 Type 2 diabetes mellitus with diabetic chronic kidney disease; E11.40 Type 2 diabetes mellitus with diabetic neuropathy, unspecified; D63.1 Anemia in chronic kidney disease; D50.9 Iron deficiency anemia, unspecified; E78.5 Hyperlipidemia, unspecified; K21.9 Gastro-esophageal reflux disease without esophagitis; I70.1 Atherosclerosis of renal artery; N25.0 Renal osteodystrophy; D69.6 Thrombocytopenia, unspecified; I45.10 Unspecified right bundle-branch block; I49.9 Cardiac arrhythmia, unspecified; I25.10 Atherosclerotic heart disease of native coronary artery without angina pectoris; I25.2 Old myocardial infarction; R77.8 Other specified abnormalities of plasma proteins; Z95.0 Presence of cardiac pacemaker; Z99.2 Dependence on renal dialysis; Z95.1 Presence of aortocoronary bypass graft; Z95.5 Presence of coronary angioplasty implant and graft; Z79.4 Long term (current) use of insulin; Z98.51 Tubal ligation status; Z79.899 Other long term (current) drug therapy
CPT/HCPCS: 36415; 71045; 80048; 80061; 82947; 83735; 84100; 84439; 84443; 84484; 85025; 85610; 85730; 87811; 90935; 93005; 96365; 96375; 99285; J1644; J1815

== ENCOUNTER 2022-09-11 10:40 | Emergency (ER) | payer OTHER ==
--- OUTSIDE RECORDS SUMMARY | 2022-09-11 11:26 | XMS REPORT | Continuity of Care Document ---
:1955 Author Organization [facility] t Address [address] [place] [address] Care Team Providers Name Role Phone Dianna Nunes MD, Wild Noel Primary Care Physician [phone] ANGELA LOCO Attending Clinician Unavail able Adele Whitney Attending Clinician Doctor Unassigned, [place] Attending Clinician Unavailable Fracisco Hayden MD Attending Clinician Candido Balderrama MD Attending Clinician Niki Dill RN Attending Clinician Unavailable BRENDA FUENTES Attending Clinician Unavailable FRACISCO HAYDEN Attending Clinician Unavailable Dorian TRUJILLO, Brenda Attending Clinician ROGER ARAUJO Attending Clinician Unavailable ROGER ARAUJO Attending Clinician Unavailable Lab, Ang - Db Attending Clinician Unavailable Jami Simms LMSW Attending Clinician Liz Sterling DO Attending Clinician ADELE CHESTER Attending Clinician Unavailable Billy Lu MD Attending Clinician Niki Pool RN Attending Clinician Unavailable NADYA MENDIOLA Attending Clinician Unavailable Neurology Attending Clinician Unavailable Finesse DORSEY, Blanka Hernandes Attending Clinician BILLY LU Attending Clinician Unavailable [...] Beronica TRUJILLO, Angela Torres Attending Clinician [phone] Mitchel TRUJILLO, Nicola Thomas Attending Clinician Ju TRUJILLO, Krzysztof Biggs Attending Clinician Marissa TRUJILLO, Fadia Smith Attending Clinician Max TRUJILLO, Asad Whitman Attending Clinician [phone] Nikolay TRUJILLO, Vahid Mai Attending Clinician Ellie TRUJILLO, Sade Sandoval Attending Clinician Robert Allen Attending Clinician Donte TRUJILLO, Mili Attending Clinician Twin TRUJILLO, Bertrand Ivy Attending Clinician Dina Hudson Attending Clinician Unavailable Rakan Bennett RN Attending Clinician Unavailable NEIL THOMAS Attending Clinician Unavailable Dangelo Ibrahim DO Attending Clinician William TRUJILLO, Neil Attending Clinician Jayjay Frazier Attending Clinician Unavailable [...] Number Effective Date Expiration Date S justice MELLO MEDICARE [id number] 2020 00:00:00 MEDICAID OF [place] [id number] 2019 00:00:00 MEDICARE PART A [id number] 2014 \\T\\ B 00:00:00 MINTO [id number] 2020 HEALTHCARE/AARP 00:00:00 Problems Condition Condition Condition Status Onset Resolution Last Treating Co mments Source Name Details Category Date Date Treatment Clinician Date S/P MVR S/P MVR Disease Active Univers (mitral (mitral 09-29 ity of valve valve 00:00: [place] repair) repair) 00 Medical Branch S/P TVR S/P TVR Disease Active Univers (tricuspid (tricuspid 09-29 it y of valve valve 00:00: [place] repair) repair) 00 Medical Branch Endocardit Endocardit Disease Active U nivers is and is and 09-04 ity of heart heart 00:00: [place] valve valve 00 Medical disorders disorders Bran ch in in diseases diseases classified classified elsewhere elsewhere Insomnia Insomnia Disease Active Unive rs due to due to 09-04 ity of other other 00:00: [place] mental mental 00 Medical disorder disorder Branch Decreased Decreased Disease Active Uni vers activities activities - it y of of daily of daily 00:00: [place] living living 00 Medical (ADL) (ADL) Branch Dyslipidem Dyslipidem Disease Active U nivers ia ia 09-04 ity of 00:00: [place] 00 Medical Branch Decreased Decreased Disease Active Uni vers appetite appetite 09-04 ity of 00:00: [place] [facility] Seizure Seizure Disease Active Univers 6-03 ity of 00:00: [place] [facility] 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 it y 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:00: [facility] s major major 00 [facility] depressive depressive Br anch disorder, disorder, without without psychotic psychotic features features Generalize Generalize Disease Active U nivers d anxiety d anxiety 6-03 ity of disorder disorder 00:00: [place] [address] Medical Branch Panic Panic Disease Active Univers attacks attacks 6- ity of 00:00: [place] [facility] Encounter Encounter Disease Active Uni vers to to 08-28 ity of establish establish 00:00: [facility] care care 00 [facility] Branch Hepatic Hepatic Disease Active Univers cirrhosis, cirrhosis, 08-28 it y of unspecifie unspecifie [place] hepatic [place] hepatic 00 Medi yoel cirrhosis cirrhosis Bran ch type, type, unspecifie unspecifie d whether d whether ascites ascites present present E44.1 Mild E44.1 Mild Disease Active U christian protein-ca protein-ca 4-05 it y of sadi sadi 00:00: [place] malnutriti malnutriti 00 Me dical on on Branch Hematochez Hematochez Disease Active U christian ia ia 4-04 ity of 00:00: [place] [facility] Moderate Moderate Disease [facility] tr[facility] tricuspid [facility]17 [facility] regurgitat regurgitat 00:00: Me dical ion S/P ion S/P 00 [facility] Tricuspid Tricuspid valve valve repair repair (Drs. Russo (Drs. Russo and and Preventza Preventza 06/18/2021 06/18/2021 ) ) S/P CABG x S/P CABG x Disease Active [facility] (BAUER>LAD, (BAUER>LAD, 00:00: Me dical SVG>OM, SVG>OM, 00 [facility] SVG>PDA, SVG>PDA, 2015) 2015) S/P S/P Disease Active [facility] placement placement 3-17 [facility] of cardiac of cardiac 00:00: Me dical pacemaker pacemaker 00 Cent er (2018) (2018) PFO PFO Disease Active [facility] (patent (patent 317 [facility] foramen foramen 00:00: Medical ovale) ovale) 00 Center small small Hypothermi Hypothermi Disease Active [facility] a, acute a, acute 3-17 [facility] post-op post-op 00:00: Medical 00 [facility] Acute Acute Disease Active [facility] blood loss blood loss 3-17 [facility] k[facility] anemia anemia 00:00: Medical 00 [place] Acute Acute Disease Active [facility] postoperat postoperat 3-17 [facility] cristela pain cristela pain 00:00: Medica l 00 Center MV MV Disease Active [facility] Endocardit Endocardit 3-17 [facility] k[facility] is is 00:00: [facility] 00 [facility] Pulmonary Pulmonary Disease Recurre [facility] HTN (HCC), HTN (HCC), nce 3-17 [facility] kes PASP 65-70 PASP 65-70 00:00: Me dical 00 [place] Acute Acute Disease Active [facility] encephalop encephalop 3-12 [facility] athy athy 00:00: Medical 00 [place] HTN HTN Disease Active [facility] (hypertens (hypertens 3-12 [facility] ion), ion), 00:00: Medical chronic chronic 00 Center arterial arterial SAH SAH Disease Recurre [facility] (subarachn (subarachn nce 3-11 [facility] oid oid 00:00: Medical hemorrhage hemorrhage 00 Ce nter ) ) Streptococ Streptococ Disease Active [facility] cus bovis cus bovis 3-07 [facility] infection infection [facility] 00 [facility] 06/18/21: 06/18/21: Disease Active [facility] MV Repair MV Repair 3-06 [facility] & TV & TV 00:00: Medical Repair Repair 00 [facility] (Russo) (Russo) Pulmonary Pulmonary Disease Active Uni vers hypertensi hypertensi 2-13 it y of on on 00:00: [place] 00 Medical Branch Acute on Acute on Disease Active Unive rs chronic chronic 2-13 ity of respirator [place]ator [place] [facility] with with Branch hypoxia hypoxia Coronary Coronary Disease Active Unive rs artery artery 2-12 ity of disease disease 00:00: [place] involving involving 00 Medi yoel circle circle Branch 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 2-12 ity of disease disease 00:00: [place] involving involving 00 Medi yoel circle circle Branch 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 Acute on Acute on Disease Active Unive rs chronic chronic 2-12 ity of diastolic diastolic 00:00: [facility] congestive congestive 00 Me dical heart heart Branch failure failure PAD PAD Disease Active Univers (periphera (periphera 2-12 it y of l artery l artery 00:00: [place] disease) disease) 00 Medica l Branch Primary Primary Disease Active Univers hypertensi hypertensi 2-12 it y of on on 00:00: [place] 00 Medical Branch 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 00:00: [place] with with 00 Medical kidney kidney Branch complicati complicati on, on, without without long-term long-term current current use of use of insulin insulin Hypertensi Hypertensi Disease Active U nivers on, on, 2-11 ity of unspecifie unspecifie [place] type d type 00 Medical Branch 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 Hypertensi Hypertens Condition 2019-02-19 Memoria on with ion with 22:28:00 l goal to be goal to be He rmann determined determined Condition 02/19/[address] [facility] Acute Acute Condition 2019-02-19 Mem oria respirator respirator 22:28:00 l y disease y disease Herm ivelisse Condition 02/19/[address] [facility] End-stage Condition 2019-02-19 [...] is Problem 02/19/[address] [facility] [facility] Upper Upper Problem 2019-02-19 Memor ia respirator respirator 22:28:00 l y y Juanito infection infection Problem 02/19/[address] [facility] Elevated Elevated Problem 2019-02-19 Memoria troponin troponin 22:28:00 l level level Juanito Problem 02/19/[address] [facility] Pacemaker Pacemaker Disease [facility] Wears Wears Disease Active [facility]i glasses glasses [facility] ESRD (end ESRD (end Disease Recurre [facility] stage stage nce [facility] renal renal Medical disease) disease) Center on on dialysis dialysis ([facility]), on ([facility]), on dialysis dialysis via RUE via RUE AVF AVF ESRD (end ESRD (end Disease Recurre [facility] stage stage [facility]ce [facility] renal renal Medical disease) disease) Center on on dialysis dialysis ([facility]), on ([facility]), on dialysis dialysis via RUE via RUE AVF AVF Allergies, Adverse Reactions, Alerts Allergy Allergy Status Severity Reaction(s) Onset Inactive Treating Comm ents Source Name Type Date Date Clinician Heparin Propensi Active "won't Methodi ty to 10-[address] adverse 00:00: bleeding" Hospit a reaction 00 l s to drug NO KNOWN Drug Active Univers ALLERGIE Class ity of S [facility] NO KNOWN Allergy Active [facility] ALLERGIE S Family History Family Member Diagnosis Comments Start Date Stop Date Source Natural brother [facility] Natural father Diabetes [facility] Natural mother Diabetes [facility] Natural sister [facility] Social History Social Habit Start Date Stop Date Quantity Comments Source History SDOH [facility] History S[facility] Comment [facility] Gender identity [facility] Sexual orientation [facility] Hospital History [facility] Alcohol Std Drinks Hospit al Exposure to 2021-09-19 2021-09-29 Not sure University SARS-CoV-2 (event) 00:00:00 14:42:00 [facility] Tobacco use and 2020-07-24 2020-07-[address] Felicita kes exposure 00:00:00 00:00:00 tobacco non-user [facility] Social History 2019-02-19 2019-02-19 [facility] 22:28:00 22:28:00 History of Social 2018-11-21 2018-11-[address] function 00:00:00 00:00:00 Hospital Alcohol intake 2018-10-27 2018-10-27 Current [facility] 00:00:00 00:00:00 non-drinker of Hospital alcohol (finding) History [facility] 2018-10-26 2018-10-26 1 [facility] Frequency 00:00:00 00:00:00 Hospita l Sex Ass[birth year] At [birth year] [facility] 00:00:00 00:00:00 Hospital Smoking Status Start Date Stop Date Source Unknown if ever smoked [facility] y of [facility] Never smoked tobacco [facility] Medications Ordered Filled Start Stop Current Ordering Indication Dosage Frequency Signature Comments Components Source Medication Medication Date Date Medication? Clinician (SIG) Name Name atorvastacyndie 2022- No 40mg Take 40 mg Univers n 40 mg 08-02 by mouth ity of tablet 10:24: 00:00 at [place] 30 :00 bedtime. Medical Branch atorvastati 2022- No 40mg Take 40 mg Univers n 40 mg 08-02 by mouth ity of tablet 10:24: 00:00 at [place] 30 :00 bedtime. Medical Branch ATORVASTATI Yes [id number] TAKE 1 Univers N 40 mg 5-01 TABLET BY ity of tablet 00:00: MOUTH AT BEDTIME Medical Branch ATORVASTATI 2022-0 Yes [id number] TAKE 1 Univers N 40 mg 5-01 TABLET BY ity of tablet 00:00: MOUTH AT BEDTIME Medical Branch atorvastati 2021-0 Yes 40mg Take 40 mg Univers n 40 mg 6-28 by mouth ity of tablet 15:14: at [place] bedtime. Medical Branch atorvastati 2021-0 Yes 40mg Take 40 mg Univers n 40 mg 6-28 by mouth ity of tablet 15:14: at [place] bedtime. Medical Branch atorvastati 2021-0 Yes 40mg Take 40 mg Univers n 40 mg 6-28 by mouth ity of tablet 15:14: at [place] bedtime. Medical Branch atorvastati 2021-0 Yes 40mg Take 40 mg Univers n 40 mg 6-28 by mouth ity of tablet 15:14: at [place] bedtime. Medical Branch atorvastati 2021-0 Yes 40mg Take 40 mg Univers n 40 mg 6-28 by mouth ity of tablet 15:14: at [place] bedtime. Medical Branch atorvastati 2021-0 Yes 40mg Take 40 mg Univers n 40 mg 6-28 by mouth ity of tablet 15:14: at [place] bedtime. Medical Branch atorvastati 2021-0 Yes 40mg Take 40 mg Univers n 40 mg 6-28 by mouth ity of tablet 15:14: at [place] bedtime. Medical Branch atorvastati 2021-0 Yes 40mg Take 40 mg Univers n 40 mg 6-28 by mouth ity of tablet 15:14: at [place] bedtime. Medical Branch atorvastati 2021-0 Yes 40mg Take 40 mg Univers n 40 mg 6-28 by mouth ity of tablet 15:14: at [place] bedtime. Medical Branch atorvastati 2021-0 Yes 40mg Take 40 mg Univers n 40 mg 6-28 by mouth ity of tablet 15:14: at [place] bedtime. Medical Branch atorvastati 2021-0 Yes 40mg Take 40 mg Univers n 40 mg 6-28 by mouth ity of tablet 15:14: at [place] bedtime. Medical Branch atorvastati 2022-0 Yes 40mg Take 40 mg Univers n 40 mg 6-28 by mouth ity of tablet 15:14: at [place] bedtime. Medical Branch atorvastati 2021-0 Yes 40mg Take 40 mg Univers n 40 mg 6-28 by mouth ity of tablet 15:14: at [place] bedtime. Medical Branch atorvastati 2021-0 Yes 40mg Take 40 mg Univers n 40 mg 6-28 by mouth ity of tablet 15:14: at [place] bedtime. Medical Branch atorvastati 2021-0 Yes 40mg Take 40 mg Univers n 40 mg 6-28 by mouth ity of tablet 15:14: at [place] bedtime. Medical Branch clopidogreL 2021-0 Yes [id number] 75mg Take 1 Univers 75 mg 6-28 tablet by ity of tablet 00:00: mouth [place] 00 daily. Medical Branch clopidogreL 2-0 Yes [id number] 75mg Take 1 Univers 75 mg 6-28 tablet by ity of tablet 00:00: mouth [place] 00 daily. Medical Branch clopidogreL 2021-0 Yes [id number] 75mg Take 1 Univers 75 mg 6-28 tablet by ity of tablet 00:00: mouth [place] 00 daily. Medical Branch clopidogreL 2-0 Yes [id number] 75mg Take 1 Univers 75 mg 6-28 tablet by ity of tablet 00:00: mouth [place] 00 daily. Medical Branch clopidogreL 2-0 Yes [id number] 75mg Take 1 Univers 75 mg 6-28 tablet by ity of tablet 00:00: mouth [place] 00 daily. Medical Branch clopidogreL 2-0 Yes [id number] 75mg Take 1 Univers 75 mg 6-28 tablet by ity of tablet 00:00: mouth [place] 00 daily. Medical Branch clopidogreL 2022-0 Yes [id number] 75mg Take 1 Univers 75 mg 6-28 tablet by ity of tablet 00:00: mouth [place] 00 daily. Medical Branch clopidogreL 2022-0 Yes [id number] 75mg Take 1 Univers 75 mg 6-28 tablet by ity of tablet 00:00: mouth [place] 00 daily. Medical Branch clopidogreL 2022-0 Yes [id number] 75mg Take 1 Univers 75 mg 6-28 tablet by ity of tablet 00:00: mouth [place] 00 daily. Medical Branch clopidogreL 2022-0 Yes [id number] 75mg Take 1 Univers 75 mg 6-28 tablet by ity of tablet 00:00: mouth [place] 00 daily. Medical Branch clopidogreL 2021-0 Yes [id number] 75mg Take 1 Univers 75 mg 6-28 tablet by ity of tablet 00:00: mouth [place] 00 daily. Medical Branch clopidogreL 2021-0 Yes [id number] 75mg Take 1 Univers 75 mg 6-28 tablet by ity of tablet 00:00: mouth [place] 00 daily. Medical Branch clopidogreL 2021-0 Yes [id number] 75mg Take 1 Univers 75 mg 6-28 tablet by ity of tablet 00:00: mouth [place] 00 daily. Medical Branch clopidogreL 2021-0 Yes [id number] 75mg Take 1 Univers 75 mg 6-28 tablet by ity of tablet 00:00: mouth [place] 00 daily. Medical Branch clopidogreL 2021-0 Yes [id number] 75mg Take 1 Univers 75 mg 6-28 tablet by ity of tablet 00:00: mouth [place] 00 daily. Medical Branch clopidogreL 2021-0 Yes [id number] 75mg Take 1 Univers 75 mg 6-28 tablet by ity of tablet 00:00: mouth [place] 00 daily. Medical Branch clopidogreL 2021-0 Yes [id number] 75mg Take 1 Univers 75 mg 6-28 [...] mouth 2 [place] 33 (two) Medical times [place] daily. NIFEdipine 2021-0 Yes 10mg Take 10 mg U nivers 10 mg 6-03 by mouth 3 ity of capsule 10:47: (three) [place] 33 times Medical daily. Branch levETIRAcet 2021-0 [...] mg by ity of 10:47: mouth 2 [place] 33 (two) Medical times [place] daily. NIFEdipine 2021-0 Yes 10mg Take 10 mg U nivers 10 mg 6-03 by mouth 3 ity of capsule 10:47: (three) [place] [address] times Medical daily. Branch levETIRAcet 0 Yes [...] mg by ity of 10:47: mouth 2 [place] 33 (two) Medical times [place] daily. NIFEdipine 2021-0 Yes 10mg Take 10 mg U nivers 10 mg 6-03 by mouth 3 ity of capsule 10:47: (three) [place] 33 times Medical daily. Branch levETIRAcet 2021-0 [...] mouth 2 [place] 33 (two) Medical times [place] daily. NIFEdipine 2021-0 Yes 10mg Take 10 mg U nivers 10 mg 6-03 by mouth 3 ity of capsule 10:47: (three) [place] 33 times Medical daily. Branch levETIRAcet 2021-0 [...] mg by ity of 10:47: mouth 2 [place] 33 (two) Medical times [place] daily. NIFEdipine 2021-0 Yes 10mg Take 10 mg U nivers 10 mg 6-03 by mouth 3 ity of capsule 10:47: (three) [place] 33 times Medical daily. Branch levETIRAcet 0 [...] mouth 2 [place] 33 (two) Medical times [place] daily. NIFEdipine 2-0 Yes 10mg Take 10 mg U nivers 10 mg 6-03 by mouth 3 ity of capsule 10:47: (three) [place] 33 times Medical daily. Branch levETIRAcet 2021-0 [...] mouth 3 ity of capsule 10:47: (three) [place] 33 times Medical daily. Branch levETIRAcet 0 [...] mg by ity of 10:47: mouth 2 [place] 33 (two) Medical times Branch daily. NIFEdipine 2021-0 Yes 10mg Take 10 mg U nivers 10 mg 6-03 by mouth 3 ity of capsule 10:47: (three) [place] 33 times Medical daily. Branch levETIRAcet 0 [...] mouth 2 [place] 33 (two) Medical times [place] daily. NIFEdipine 2021-0 Yes 10mg Take 10 mg U nivers 10 mg 6-03 by mouth 3 ity of capsule 10:47: (three) [place] 33 times Medical daily. Branch levETIRAcet 0 [...] mouth 2 [place] 33 (two) Medical times [place] daily. NIFEdipine 2021-0 Yes 10mg Take 10 mg U nivers 10 mg 6-03 by mouth 3 ity of capsule 10:47: (three) [place] 33 times Medical daily. Branch levETIRAcet 2021-0 [...] mg by ity of 10:47: mouth 2 [place] 33 (two) Medical times [place] daily. NIFEdipine 2021-0 Yes 10mg Take 10 mg U nivers 10 mg 6-03 by mouth 3 ity of capsule 10:47: (three) [place] 33 times Medical daily. Branch levETIRAcet 2021-0 [...] mg by ity of 10:47: mouth 2 [place] [address] (two) Medical times [place] daily. NIFEdipine 2021-0 Yes 10mg Take 10 mg U nivers 10 mg 6-03 by mouth 3 ity of capsule 10:47: (three) [place] 33 times Medical daily. Branch levETIRAcet 2021-0 Yes 500mg Take 500 U nivers am (KEPPRA) 6-03 mg by ity of 500 mg 10:47: mouth at [place] tablet 33 bedtime. Medical Branch levETIRAcet 2021-0 Yes 250mg Take 250 U nivers am (KEPPRA) 6-03 mg by ity of 250 mg 10:47: mouth [place] tablet 33 every Medical Tuesday, Branch Tuesday and Tuesday. After dialysis CARVEDILOL 2021-0 Yes 12.5mg Take 12.5 Univers ORAL 6-03 mg by ity of 10:47: mouth 2 [place] 33 (two) Medical times [place] daily. NIFEdipine 2-0 Yes 10mg Take 10 mg U nivers 10 mg 6-03 by mouth 3 ity of capsule 10:47: (three) [place] 33 times Medical daily. Branch levETIRAcet 2021-0 [...] mouth 2 [place] 33 (two) Medical times [place] daily. NIFEdipine 0 Yes 10mg Take 10 [...] mg by ity of 10:47: mouth 2 [place] 33 (two) Medical times [place] daily. NIFEdipine 0 Yes 10mg Take 10 mg U nivers 10 mg 6-03 by mouth 3 ity of capsule 10:47: (three) [place] 33 times Medical daily. Branch levETIRAcet 0 [...] and Tuesday. After dialysis mirtazapine 0 Yes [id number] 15mg Take 1 Univers (REMERON) 6-03 tablet by ity o f 15 mg 00:00: mouth at [place] tablet 00 bedtime. Medical Branch traZODone 2022-0 Yes [id number] 50mg Take 1 Un kecia 50 mg 6-03 tablet by ity of tablet 00:00: mouth at [place] 00 bedtime. Medical Branch mirtazapine 2021-0 Yes [id number] 15mg Take 1 Univers (REMERON) 6-03 tablet by ity o f 15 mg 00:00: mouth at [place] tablet 00 bedtime. Medical Branch traZODone 2021-0 Yes [id number] 50mg Take 1 Un kecia 50 mg 6-03 tablet by ity of tablet 00:00: mouth at [place] 00 bedtime. Medical Branch mirtazapine 2021-0 Yes [id number] 15mg Take 1 Univers (REMERON) 6-03 tablet by ity o f 15 mg 00:00: mouth at [place] tablet 00 bedtime. Medical Branch traZODone 2021-0 Yes [id number] 50mg Take 1 Un kecia 50 mg 6-03 tablet by ity of tablet 00:00: mouth at [place] 00 bedtime. Medical Branch mirtazapine 2021-0 Yes [id number] 15mg Take 1 Univers (REMERON) 6-03 tablet by ity o f 15 mg 00:00: mouth at [place] tablet 00 bedtime. Medical Branch traZODone 2021-0 Yes [id number] 50mg Take 1 Un kecia 50 mg 6-03 tablet by ity of tablet 00:00: mouth at [place] 00 bedtime. Medical Branch mirtazapine 2021-0 Yes [id number] 15mg Take 1 Univers (REMERON) 6-03 tablet by ity o f 15 mg 00:00: mouth at [place] tablet 00 bedtime. Medical Branch traZODone 2021-0 Yes [id number] 50mg Take 1 Un kecia 50 mg 6-03 tablet by ity of tablet 00:00: mouth at [place] 00 bedtime. Medical Branch mirtazapine 2021-0 Yes [id number] 15mg Take 1 Univers (REMERON) 6-03 tablet by ity o f 15 mg 00:00: mouth at [place] tablet 00 bedtime. Medical Branch traZODone 2021-0 Yes [id number] 50mg Take 1 Un kecia 50 mg 6-03 tablet by ity of tablet 00:00: mouth at [place] 00 bedtime. Medical Branch mirtazapine 2021-0 Yes [id number] 15mg Take 1 Univers (REMERON) 6-03 tablet by ity o f 15 mg 00:00: mouth at [place] tablet 00 bedtime. Medical Branch traZODone 2021-0 Yes [id number] 50mg Take 1 Un kecia 50 mg 6-03 tablet by ity of tablet 00:00: mouth at [place] 00 bedtime. Medical Branch mirtazapine 2021-0 Yes [id number] 15mg Take 1 Univers (REMERON) 6-03 tablet by ity o f 15 mg 00:00: mouth at [place] tablet 00 bedtime. Medical Branch traZODone 2021-0 Yes [id number] 50mg Take 1 Un kecia 50 mg 6-03 tablet by ity of tablet 00:00: mouth at [place] 00 bedtime. Medical Branch mirtazapine 2021-0 Yes [id number] 15mg Take 1 Univers (REMERON) 6-03 tablet by ity o f 15 mg 00:00: mouth at [place] tablet 00 bedtime. Medical Branch traZODone 2021-0 Yes [id number] 50mg Take 1 Un kecia 50 mg 6-03 tablet by ity of tablet 00:00: mouth at [place] 00 bedtime. Medical Branch mirtazapine 2021-0 Yes [id number] 15mg Take 1 Univers (REMERON) 6-03 tablet by ity o f 15 mg 00:00: mouth at [place] tablet 00 bedtime. Medical Branch traZODone 2021-0 Yes [id number] 50mg Take 1 Un kecia 50 mg 6-03 tablet by ity of tablet 00:00: mouth at [place] 00 bedtime. Medical Branch mirtazapine 2021-0 Yes [id number] 15mg Take 1 Univers (REMERON) 6-03 tablet by ity o f 15 mg 00:00: mouth at [place] tablet 00 bedtime. Medical Branch traZODone 2021-0 Yes [id number] 50mg Take 1 Un kecia 50 mg 6-03 tablet by ity of tablet 00:00: mouth at [place] 00 bedtime. Medical Branch mirtazapine 2021-0 Yes [id number] 15mg Take 1 Univers (REMERON) 6-03 tablet by ity o f 15 mg 00:00: mouth at [place] tablet 00 bedtime. Medical Branch traZODone 2021-0 Yes [id number] 50mg Take 1 Un kecia 50 mg 6-03 tablet by ity of tablet 00:00: mouth at [place] 00 bedtime. Medical Branch mirtazapine 2021-0 Yes [id number] 15mg Take 1 Univers (REMERON) 6-03 tablet by ity o f 15 mg 00:00: mouth at [place] tablet 00 bedtime. [facility] traZODone 2021-0 Yes [id number] 50mg Take 1 [facility] 50 mg 6-03 tablet by [facility] tablet 00:00: mouth at [place] 00 bedtime. [facility] mirtazapine 2021-0 Yes [id number] 15mg Take 1 [facility] (REMERON) 6-03 tablet by [facility] o f 15 mg 00:00: mouth at [place] tablet 00 bedtime. [facility] traZODone 2021-0 Yes [id number] 50mg Take 1 [facility] 50 mg 6-03 tablet by [facility] tablet 00:00: mouth at [place] 00 bedtime. [facility] mirtazapine 2021-0 Yes [id number] 15mg Take 1 [facility] (REMERON) 6-03 tablet by ity o f 15 mg 00:00: mouth at [place] tablet 00 bedtime. [facility] traZODone 2021-0 Yes [id number] 50mg Take 1 [facility] 50 mg 6-03 tablet by [facility] tablet 00:00: mouth at [place] 00 bedtime. [facility] mirtazapine 0 Yes [id number] 15mg Take 1 [facility] (REMERON) 6-03 tablet by [facility]y o f 15 mg 00:00: mouth at [place] tablet 00 bedtime. [facility] traZODone 2021-0 Yes [id number] 50mg Take 1 [facility] 50 mg 6-03 tablet by [facility] of tablet 00:00: mouth at [place] 00 bedtime. [facility] mirtazapine 2021-0 Yes [id number] 15mg Take 1 [facility] (REMERON) 6-03 tablet by [facility]y o f 15 mg 00:00: mouth at [place] tablet 00 bedtime. [facility] traZODone 2021-0 Yes [id number] 50mg Take 1 [facility] 50 mg 6-03 tablet by [facility] tablet 00:00: mouth at [place] 00 bedtime. [facility] amoxicillin 2021-0 Yes 500mg Take 500 [facility] 500 mg 5-24 mg by [facility] of capsule 00:00: mouth. [place] [facility] amoxicillin 2022-0 Yes 500mg Take 500 [facility] n[facility] 500 mg 5-24 mg by [facility]y of capsule 00:00: mouth. [place] [facility] amoxicillin 2022-0 Yes 500mg Take 500 [facility] 500 mg 5-24 mg by [facility]y of capsule 00:00: mouth. [place] [facility] amoxicillin 2022-0 Yes 500mg Take 500 [facility] 500 mg 5-24 mg by [facility]y of capsule 00:00: mouth. [place] [facility] amoxicillin 2022-0 Yes 500mg Take 500 [facility] 500 mg 5-24 mg by [facility]y of capsule 00:00: mouth. [place] [facility] amoxicillin 2022-0 Yes 500mg Take 500 [facility] 500 mg 5-24 mg by [facility]y of capsule 00:00: mouth. [place] [facility] amoxicillin 2022-0 Yes 500mg Take 500 [facility] 500 mg 5-24 mg by [facility]y of capsule 00:00: mouth. [place] [facility] amoxicillin 2022-0 Yes 500mg Take 500 [facility] 500 mg 5-24 mg by [facility]y of capsule 00:00: mouth. [place] [facility] amoxicillin 2022-0 Yes 500mg Take 500 [facility] 500 mg 5-24 mg by [facility]y of capsule 00:00: mouth. [place] [facility] amoxicillin 2022-0 Yes 500mg Take 500 [facility] 500 mg 5-24 mg by [facility]y of capsule 00:00: mouth. [place] [facility] amoxicillin 2022-0 Yes 500mg Take 500 [facility] 500 mg 5-24 mg by [facility]y of capsule 00:00: mouth. [place] [facility] amoxicillin 2022-0 Yes 500mg Take 500 [facility] n[facility] 500 mg 5-24 mg by ity of capsule 00:00: mouth. [place] [address] [facility] amoxicillin 2022-0 Yes 500mg Take 500 [facility] n[facility] 500 mg 5-24 mg by ity of capsule 00:00: mouth. [place] [address] [facility] amoxicillin 2022-0 Yes 500mg Take 500 [facility] 500 mg 5-24 mg by ity of capsule 00:00: mouth. [place] [address] [facility] amoxicillin 2022-0 Yes 500mg Take 500 [facility] 500 mg 5-24 mg by ity of capsule 00:00: mouth. [place] 00 [facility] amoxicillin 2022-0 Yes 500mg Take 500 [facility] 500 mg 5-24 mg by ity of capsule 00:00: mouth. [address] amoxicillin 2-0 Yes 500mg Take 500 [facility] n[facility] 500 mg 5-24 mg by ity of capsule 00:00: mouth. [address] hydrALAZINE 2021-0 Yes 50mg Take 50 mg [facility] 50 mg 4-08 by mouth. [facility] of tablet 00:00: [address] hydrALAZINE 2021-0 Yes 50mg Take 50 mg [facility] 50 mg 4-08 by mouth. [facility] of tablet 00:00: [address] hydrALAZINE 2021-0 Yes 50mg Take 50 mg [facility] 50 mg 4-08 by mouth. [facility] of tablet 00:00: [address] hydrALAZINE 2021-0 Yes 50mg Take 50 mg [facility] 50 mg 4-08 by mouth. [facility] of tablet 00:00: [address] hydrALAZINE 2021-0 Yes 50mg Take 50 mg [facility] 50 mg 4-08 by mouth. ity of tablet 00:00: [address] hydrALAZINE 2021-0 Yes 50mg Take 50 mg [facility] 50 mg 4-08 by mouth. [facility] of tablet 00:00: [address] hydrALAZINE 2021-0 Yes 50mg Take 50 mg [facility] 50 mg 4-08 by mouth. [facility] of tablet 00:00: [address] hydrALAZINE 2021-0 Yes 50mg Take 50 mg [facility] 50 mg 4-08 by mouth. [facility] of tablet 00:00: [address] hydrALAZINE 2021-0 Yes 50mg Take 50 mg [facility] 50 mg 4-08 by mouth. [facility]y of tablet 00:00: [address] hydrALAZINE 2021-0 Yes 50mg Take 50 mg [facility] 50 mg 4-08 by mouth. ity of tablet 00:00: [address] hydrALAZINE 2021-0 Yes 50mg Take 50 mg [facility] 50 mg 4-08 by mouth. [facility] of tablet 00:00: [address] hydrALAZINE 2-0 Yes 50mg Take 50 mg [facility] 50 mg 4-08 by mouth. [facility]y of tablet 00:00: [address] hydrALAZINE 2-0 Yes 50mg Take 50 mg [...] 00:00: Medical [facility] aspirin 81 2021-2021- No [id number] 81mg Take 1 [facility] mg chewable 07-10-08 tablet by it y of tablet 00:00: 04:59 mouth [place] 00 :00 daily for Medical 90 days. Branch clopidogreL 2021- No [id number] 75mg Take 1 [facility] 75 mg 07-10- tablet by [facility]y of tablet 00:00: 00:00 [...] Take [address] [facility] (KEPPRA) - 06-03 [facility] 250 MG 00:00: 23:59 (250 [...] minerals 14:35: mouth Medical tablet 35 daily. [place] sucroferric Yes 500mg Q.[id number] Take [address] [facility] oxyhydroxid 4-02 [id number] mg by [facility] e 500 mg 14:35: 3D mouth 3 Medica l Chew 35 (three) Center times daily. multivitami Yes 1{tbl} QD Take [address] [facility] with 4-02 tablet by [facility] 14:35: mouth Medical tablet 35 daily. [place] sucroferric Yes 500mg Q.[id number] Take [address] [facility] [address] oxyhydroxid 4-02 [id number] mg by L [facility] e 500 mg 14:35: 3D mouth 3 Medica l Chew 35 (three) Center times daily. multivitami Yes 1{tbl} QD Take [address] [facility] with 4-02 tablet by [facility] 14:35: mouth Medical tablet 35 daily. Center sucroferric Yes 500mg Q.[id number] Take [address] oxyhydroxid 4-02 [id number] mg by [facility] e 500 mg 14:35: 3D mouth 3 Medica l Chew 35 (three) Center times daily. multivitami Yes 1{tbl} QD Take [address] [facility] with 4-02 tablet by [facility] 14:35: mouth Medical tablet 35 daily. Center sucroferric Yes 500mg Q.[id number] Take [address] oxyhydroxid 4-02 [id number] mg by L [facility] e 500 mg 14:35: 3D mouth 3 Medica l Chew 35 (three) Center times daily. multivitami Yes 1{tbl} QD Take [address] [facility] with 4-02 tablet by [facility] 14:35: mouth Medical tablet 35 daily. Center sucroferric Yes 500mg Q.63852255 Take [address] oxyhydroxid 4-02 [id number] mg by [facility] e 500 mg 14:35: 3D mouth 3 Medica l Chew 35 (three) Center times daily. multivitami Yes 1{tbl} QD Take [address] [facility] with 4-02 tablet by [facility] 14:35: mouth Medical tablet 35 daily. Center sucroferric Yes 500mg Q.[id number] Take [address] oxyhydroxid 4-02 [id number] mg by [facility] e 500 mg 14:35: 3D mouth 3 Medica l Chew 35 (three) Center times daily. multivitami Yes 1{tbl} QD Take [address] [facility] with 4-02 tablet by [facility] 14:35: mouth Medical tablet 35 daily. [place] sucroferric Yes 500mg Q.[id number] Take [address] [facility] [address] oxyhydroxid 4-02 [id number] mg by [facility] e 500 mg 14:35: 3D mouth 3 Medica l Chew 35 (three) Center times daily. multivitami Yes 1{tbl} QD Take [address] [facility] with 4-02 tablet by [facility] 14:35: mouth Medical tablet 35 daily. Center sucroferric 2021- Yes 500mg Q.[id number] Take [address] oxyhydroxid 4-02 [id number] mg by [facility] e 500 mg 14:35: 3D mouth 3 Medica l Chew 35 (three) Center times daily. multivitami 2021- Yes 1{tbl} QD Take [address] [facility] with 4-02 tablet by [facility] 14:35: mouth Medical tablet 35 daily. Center sucroferric Yes 500mg Q.[id number] Take [address] oxyhydroxid 4-02 [id number] mg by L [facility] e 500 mg 14:35: 3D mouth 3 Medica l Chew 35 (three) Center times daily. multivitami Yes 1{tbl} QD Take [address] [facility] with 4-02 tablet by [facility] 14:35: mouth Medical tablet 35 daily. Center sucroferric Yes 500mg Q.[id number] Take [address] [facility] [address] oxyhydroxid 4-02 [id number] mg by [facility] e 500 mg 14:35: 3D mouth 3 Medica l Chew 35 (three) Center times daily. multivitami Yes 1{tbl} QD Take [address] [facility] with 4-02 tablet by [facility] 14:35: mouth Medical tablet 35 daily. Center sucroferric Yes 500mg Q.[id number] Take [address] oxyhydroxid 4-02 [id number] mg by [facility] e 500 mg 14:35: 3D mouth 3 Medica l Chew 35 (three) Center times daily. multivitami Yes 1{tbl} QD Take [address] [facility] with 4-02 tablet by [facility] 14:35: mouth Medical tablet 35 daily. [place] sucroferric Yes 500mg Q.[id number] Take [address] oxyhydroxid 4-02 [id number] mg by [facility] e 500 mg 14:35: 3D mouth 3 Medica l Chew 35 (three) Center times daily. multivitami Yes 1{tbl} QD Take [address] [facility] with 4-02 tablet by [facility] 14:35: mouth Medical tablet 35 daily. Center sucroferric Yes 500mg Q.[id number] Take [address] oxyhydroxid 4-02 [id number] mg by [facility] e 500 mg 14:35: 3D mouth 3 Medica l Chew 35 (three) Center times daily. aspirin 81 0 2- No 81mg QD Take [address] [facility] MG EC 07-04 by mouth [facility] tablet 11:07: 00:00 daily. Medical 35 :00 [place] carvediloL 2021- No 12.5mg Take 12.5 [facility] [...] 11:07: 00:00 daily. Medic al 35 :00 [place] NIFEdipine No 60mg QD Take [address] [facility] (PROCARDIA- 07-04 by mouth Ned es XL) 60 MG 11:07: 00:00 daily. Medic al (OSM) 24 hr 35 :00 Center tablet hydrALAZINE No 50mg Q.[id number] Take [address] [facility] (APRESOLINE 07-04 [id number] by mouth 3 [facility] ) 50 MG [...] tablet 11:07: 00:00 daily. Medical 35 :00 [place] carvediloL 2021- No 12.5mg Take 12.5 [facility] [...] 35 :00 Center tablet hydrALAZINE No 50mg Q.[id number] Take [address] [facility] (APRESOLINE 07-04 [id number] by mouth 3 [facility] ) 50 MG [...] 11:07: 00:00 daily. Medical tablet 35 :00 [place] isosorbide 2021- No 30mg QD Take 30 [...] 35 :00 Center tablet hydrALAZINE No 50mg Q.[id number] Take [address] [facility] (APRESOLINE 07-04 [id number] by mouth 3 [facility] ) 50 MG 11:07: 00:00 3D (three) Medica l tablet 35 :00 times Center daily. lisinopriL No 5mg QD Take [address] (PRINIVIL,Z 07-04 by mouth Ned es ESTRIL) 5 11:07: 00:00 daily. Medic al [facility] tablet 35 :00 [place] aspirin 81 No 81mg QD Take [address] [facility] MG EC 07-04 by mouth [facility] tablet 11:07: 00:00 daily. Medical 35 :00 [place] carvediloL No 12.5mg Take 12.[address] [facility] [...] 35 :00 Center tablet hydrALAZINE No 50mg Q.[id number] Take [address] [facility] (APRESOLINE 07-04 [id number] by mouth 3 [facility] ) 50 MG 11:07: 00:00 3D (three) Medica l tablet 35 :00 times Center daily. lisinopriL No 5mg QD Take [address] (PRINIVIL,Z 07-04 by mouth Ned es ESTRIL) 5 11:07: 00:00 daily. Medic al [facility] tablet 35 :00 [place] aspirin 81 No 81mg QD Take [address] [facility] MG EC 07-04 by mouth [facility] tablet 11:07: 00:00 daily. Medical 35 :00 [place] carvediloL No 12.5mg Take 12.[address] [facility] (COREG) 07-04-02 mg by [facility] 12.5 MG 11:07: 00:00 mouth 2 Medica l tablet 35 :00 (two) Center times daily with breakfast and dinner. atorvastati No 40mg QD Take [address] [facility] (LIPITOR) 07-04 by mouth Ned es 40 MG 11:07: 00:00 daily. Medical tablet 35 :00 [place] isosorbide 2021- No 30mg QD Take [address] [facility] mononitrate 4-02 04-02 by mouth Ned es (IMDUR) 30 11:07: [...] 35 :00 Center tablet hydrALAZINE No 50mg Q.32437302 Take [address] [facility] (APRESOLINE 07-04 [id number] by mouth 3 [facility] ) 50 MG [...] 35 :00 Center tablet hydrALAZINE No 50mg Q.01071929 Take [address] [facility] (APRESOLINE 07-04 [id number] by mouth 3 [facility] ) 50 MG 11:07: 00:00 3D (three) Medica l tablet 35 :00 times Center daily. lisinopriL 5mg QD Take [address] (PRINIVIL,Z 07-04 by mouth Ned es ESTRIL) 5 11:07: 00:00 daily. Medic al [facility] tablet 35 :00 [place] aspirin 81 No 81mg QD Take [address] [facility] MG EC 07-04 by mouth [facility] tablet 11:07: 00:00 daily. Medical 35 :00 [place] carvediloL No 12.5mg Take 12.[address] [facility] [address] [...] :00 Center tablet hydrALAZINE 2021- No 50mg Q.[id number] Take [address] [facility] (APRESOLINE 07-04- [id number] by mouth 3 [facility] ) 50 MG 11:07: 00:00 3D (three) Medica l tablet 35 :00 times Center daily. lisinopriL 2021- No 5mg QD Take [address] (PRINIVIL,Z 07-04 by mouth Ned es ESTRIL) 5 11:07: 00:00 daily. Medic al [facility] tablet 35 :00 [place] aspirin 81 2021- No 81mg QD Take [address] [facility] MG EC 07-04 by mouth [facility] tablet 11:07: 00:00 daily. Medical 35 :00 [place] carvediloL 2021- No 12.5mg Take 12.[address] [facility] (COREG) 07-04 mg by [facility] 12.5 MG 11:07: 00:00 mouth 2 Medica l tablet 35 :00 (two) Center times daily with breakfast and dinner. atorvastati No 40mg QD Take [address] [facility] n (LIPITOR) 07-04 by mouth Ned es 40 MG 11:07: 00:00 daily. Medical tablet 35 :00 [place] isosorbide 2021- No 30mg QD Take 30 [...] QD Take [address] [facility] (PROCARDIA- 4-02 04-02 by mouth [facility] es XL) 60 MG 11:07: 00:00 daily. Medic al (OSM) 24 hr 35 :00 Center tablet hydrALAZINE 2021- No 50mg Q.64771966 Take [address] [facility] (APRESOLINE 07-04 [id number] by mouth 3 [facility] ) 50 MG [...] :00 Center tablet hydrALAZINE 2021- No 50mg Q.31894301 Take [address] [facility] (APRESOLINE -05 08- [id number] by mouth 3 [facility] ) 50 MG [...] :00 Center tablet hydrALAZINE 2021- No 50mg Q.[id number] Take [address] [facility] (APRESOLINE -07-04 [id number] by mouth 3 [facility] ) 50 MG [...] :00 Center tablet hydrALAZINE 2021- No 50mg Q.[id number] Take [address] [facility] (APRESOLINE 07-04 [id number] by mouth 3 [facility] ) 50 MG 11:07: 00:00 3D (three) Medica l tablet 35 :00 times Center daily. lisinopriL 2021- No 5mg QD Take [address] (PRINIVIL,Z 4-02 04-02 by mouth Ned es ESTRIL) 5 11:07: 00:00 daily. Medic al MG tablet 35 :00 Center cefTRIAXone 2022-0 Yes 2g QD Inject 2 [...] [address] [facility] (ROCEPHIN) 4-02 intravenou End es 2 g in 00:00: sly daily. [...] % (NS) 100 mL (V2B) IVPB atorvastati 2021-0 202- No 40mg QD Take [address] [facility] (LIPITOR) 07-04 tablet (40 L ukes 40 MG 00:00: 23:59 mg total) Medica l tablet 00 :00 by mouth Center nightly for 60 days. carvediloL 2021-0 2021- No 12.5mg Q.5D Take [address] (COREG) 07-04 [facility] 12.5 MG 00:00: 23:59 (12.5 mg Medic al tablet 00 :00 total) by Center mouth 2 (two) times daily for 60 days. hydrALAZINE 2021-0 202- No 10mg Take [address] [facility] (APRESOLINE [...] Take [address] [facility] (KEPPRA) 4-02 06-01 [facility] 500 MG 00:00: 23:59 (500 [...] 8 (eight) hours for 60 days. epoetin No anemia in 6000U Inject 2 [facility] [...] (two) times daily for 60 days. hydrALAZINE 2021-2021- No 10mg Take [address] [facility] (APRESOLINE [...] (two) times daily for 60 days. hydrALAZINE 2021-0 2021- No 10mg Take [address] [facility] [...] No Use as [facility] regular 4-02 - directed. [facility] (HumuLIN 00:00: 00:00 Medical R,NovoLIN 00 :00 Center R) 100 unit/mL injection insulin 2021- No Use as [facility] regular 4-02 - directed. [facility] (HumuLIN 00:00: 00:00 Medical R,NovoLIN 00 :00 Center R) 100 unit/mL injection insulin 2021- No Use as [facility] regular 4-02 -02 directed. [facility] (HumuLIN 00:00: 00:00 Medical R,NovoLIN 00 :00 Center R) 100 unit/mL injection insulin 2021- No Use as [facility] regular 4-02 - directed. [facility] (HumuLIN 00:00: 00:00 Medical R,NovoLIN [...] No Use as [facility] regular 4-02 - directed. [facility] (HumuLIN 00:00: 00:00 Medical R,NovoLIN 00 :00 Center R) 100 unit/mL injection insulin 2021- No Use as [facility] regular 4-02 - directed. [facility] (HumuLIN 00:00: 00:00 Medical R,NovoLIN 00 :00 Center R) 100 unit/mL injection insulin 2021- No Use as [facility] regular 4-02 -02 directed. [facility] (HumuLIN 00:00: 00:00 Medical R,NovoLIN 00 :00 Center R) 100 unit/mL injection insulin 2021- No Use as [facility] regular 4-02 - directed. [facility] (HumuLIN 00:00: 00:00 Medical R,NovoLIN [...] :00 Center R) 100 unit/mL injection insulin No Use as [facility] regular 07-0402 directed. [facility] (HumuLIN 00:00: 00:00 Medical R,NovoLIN [...] hr 59 Center tablet hydrALAZINE Yes 50mg Q.15225518 Take [address] [facility] (APRESOLINE - [id number] by mouth 3 [facility] ) 50 MG [...] MG tablet 59 Center sucroferric Yes 500mg Q.19724604 Take [address] [facility] [address] oxyhydroxid 4- [id number] mg by L ukes e 500 mg [...] 15 Center tablet hydrALAZINE 0 Yes 50mg Q.[id number] Take [address] [facility] (APRESOLINE 3-30 [id number] by mouth 3 [facility] ) 50 MG [...] MG tablet 15 Center sucroferric Yes 500mg Q.[id number] Take [address] [facility] [address] oxyhydroxid 3-30 [id number] mg by L [facility] e 500 mg [...] 15 Center tablet hydrALAZINE 0 Yes 50mg Q.96254677 Take [address] [facility] (APRESOLINE 3-30 [id number] by mouth 3 [facility] ) 50 MG [...] MG tablet 15 Center sucroferric Yes 500mg Q.19873979 Take [address] [facility] [address] oxyhydroxid 3-30 [id number] mg by L [facility]kes e 500 mg [...] 18 Center tablet hydrALAZINE 0 Yes 50mg Q.37631796 Take [address] [facility] (APRESOLINE 3-30 [id number] by mouth 3 [facility] ) 50 MG 08:40: 3D (three) Medical tablet 18 times Center daily. multivitami Yes 1{tbl} QD Take [address] [facility] with 3-30 tablet by [facility] 08:40: mouth Medical tablet 18 daily. [place] lisinopriL 0 Yes 5mg QD Take [address] [facility] [address] [facility] (PRINIVIL,Z 3-30 by mouth [facility] ESTRIL) 5 08:40: daily. Medica l MG tablet 18 Center sucroferric Yes 500mg Q.08250027 Take [address] oxyhydroxid 3-30 [id number] mg by L [facility] e 500 mg [...] hr 01 Center tablet hydrALAZINE Yes 50mg Q.94042117 Take [address] [facility] (APRESOLINE 3-28 [id number] by mouth 3 [facility] ) 50 MG [...] MG tablet 01 Center sucroferric Yes 500mg Q.64680944 Take [address] [facility] [address] oxyhydroxid 3-28 [id number] mg by [facility] 500 mg [...] 22 Center tablet hydrALAZINE 0 Yes 50mg Q.85780147 Take [address] [facility] (APRESOLINE 06-29 [id number] by mouth 3 [facility] ) 50 MG 09:34: 3D (three) Medical tablet 22 times Center daily. multivitami Yes 1{tbl} QD Take [address] [facility] with 06-29 tablet by [facility] 09:34: mouth Medical tablet 22 daily. [place] lisinopriL Yes 5mg QD Take [address] [facility] [address] [facility] (PRINIVIL,Z - by mouth Luke s ESTRIL) 5 09:34: daily. Medica l MG tablet 22 Center sucroferric Yes 500mg Q.02287521 Take [address] [facility] [address] oxyhydroxid 06-29 [id number] mg by L [facility] 500 mg [...] 20:31: daily. Medica l 49 Center NIFEdipine 2022-0 Yes 60mg QD Take [address] [facility] (PROCARDIA- 3-25 by mouth [facility] XL) 60 MG 20:31: daily. Medica l (OSM) 24 hr 49 Center tablet hydrALAZINE 2021-0 Yes 50mg Q.[id number] Take [address] [facility] (APRESOLINE 3-25 [id number] by mouth 3 [facility] ) 50 MG [...] tablet 49 Center sucroferric 0 Yes 500mg Q.16030290 Take [address] oxyhydroxid 3-25 [id number] mg by L [facility] e 500 mg [...] 15 Center tablet hydrALAZINE 2021-0 Yes 50mg Q.[id number] Take [address] [facility] (APRESOLINE 3-20 [id number] by mouth 3 [facility] ) 50 MG 18:09: 3D (three) Medical tablet 15 times Center daily. multivitami 2021-0 Yes 1{tbl} QD Take [address] [facility] with 3-20 tablet by [facility] 18:09: mouth Medical tablet 15 daily. Center lisinopriL 2021-0 Yes 5mg QD Take [address] [facility] [address] [facility] (PRINIVIL,Z 3-20 by mouth Luke s ESTRIL) 5 18:09: daily. Medica l MG tablet 15 Center sucroferric 0 Yes 500mg Q.78256281 Take [address] [address] oxyhydroxid 3-20 [id number] mg by L [facility]kes e 500 mg [...] hr 15 Center tablet hydrALAZINE Yes 50mg Q.23170765 Take [address] [facility] (APRESOLINE 3-20 [id number] by mouth 3 [facility] ) 50 MG [...] tablet 15 Center sucroferric 0 Yes 500mg Q.[id number] Take [address] oxyhydroxid 3-20 [id number] mg by L [facility] e 500 mg [...] 3-07 by mouth [facility] tablet 04:45: daily. [address] carvediloL 0 Yes 12.5mg Take 12.[address] [facility] (COREG) 3-07 mg by [facility] 12.5 MG 04:45: mouth 2 Medical tablet 04 (two) Center times daily with breakfast and dinner. aspirin 81 0 Yes 81mg QD Take [address] MG EC 3-07 by mouth [facility] tablet 04:45: daily. [address] carvediloL 0 Yes 12.5mg Take 12.[address] [facility] (COREG) 3-07 mg by [facility] 12.5 MG 04:45: mouth 2 Medical tablet 04 (two) Center times daily with breakfast and dinner. aspirin 81 0 Yes 81mg QD Take [address] MG EC 3-07 by mouth [facility] tablet 04:45: daily. [address] carvediloL 0 Yes 12.5mg Take 12.[address] [facility] (COREG) 3-07 mg by [facility] 12.5 MG 04:45: mouth 2 Medical tablet 04 (two) Center times daily with breakfast and dinner. aspirin 81 0 Yes 81mg QD Take [address] MG EC 3-07 by mouth [facility] tablet 04:45: daily. [address] carvediloL Yes 12.5mg Take 12.[address] [facility] (COREG) 3-07 mg by [facility] 12.5 MG 04:45: mouth 2 Medical tablet 04 (two) Center times daily with breakfast and dinner. aspirin 81 0 Yes 81mg QD Take [address] MG EC 3-07 by mouth [facility] tablet 04:45: daily. [address] carvediloL 0 Yes 12.5mg Take 12.[address] [facility] (COREG) 3-07 mg by [facility] 12.5 MG 04:45: mouth 2 Medical tablet 04 (two) Center times daily with breakfast and dinner. aspirin 81 2021-0 Yes 81mg QD Take [address] MG EC 3-07 by mouth [facility] tablet 04:45: daily. [address] carvediloL 2022-0 Yes 12.5mg Take 12.[address] [facility] (COREG) 3-07 mg by [facility] 12.5 MG 04:45: mouth 2 Medical tablet 04 (two) Center times daily with breakfast and dinner. aspirin 81 2021-0 Yes 81mg QD Take [address] MG EC 3-07 by mouth [facility] tablet 04:45: daily. [address] carvediloL 0 Yes 12.5mg Take 12.[address] [facility] (COREG) 3-07 mg by [facility] 12.5 MG 04:45: mouth 2 Medical tablet 04 (two) Center times daily with breakfast and dinner. aspirin 81 0 Yes 81mg QD Take [address] MG EC 3-07 by mouth [facility] tablet 04:45: daily. [address] carvediloL Yes 12.5mg Take 12.[address] [facility] [address] (COREG) 3-07 mg by [facility] 12.5 MG 04:45: mouth 2 Medical tablet 04 (two) Center times daily with breakfast and dinner. aspirin 81 0 Yes 81mg QD Take [address] MG EC 3-07 by mouth [facility] tablet 04:45: daily. [address] carvediloL Yes 12.5mg Take 12.[address] [facility] [address] (COREG) 3-07 mg by [facility] 12.5 MG 04:45: mouth 2 Medical tablet 04 (two) Center times daily with breakfast and dinner. aspirin 81 2021- No [id number] 81mg Take 1 [facility] mg chewable 05-23 tablet by it y of tablet 00:00: 04:59 mouth [place] 00 :00 daily for Medical 30 days. [place] clopidogreL 2021- No [id number] 75mg Take 1 [facility] 75 mg 05-23 tablet by ity of tablet 00:00: 04:59 mouth [place] 00 :00 daily for Medical 30 days. [place] isosorbide 2021- No [id number] 30mg Take 1 [facility] mononitrate 05-23 tablet by it y of 30 mg 24 hr 00:00: 04:59 [place] tablet 00 :00 daily for Medical 30 days. [place] lisinopriL 2021- No [id number] 5mg Take 1 [facility] 5 mg tablet 05-23 tablet by it y of 00:00: 04:59 mouth [place] 00 :00 daily for Medical 30 days. Branch vitamin b 2021- No [id number] 1{tbl} Take 1 [facility] complex-vit 05-23 tablet by it y of [place] 00:00: 04:59 mouth [place] c-folic 00 :00 daily for Medical acid 0.8 mg 30 days. Bran ch tablet aspirin 81 2021- No [id number] 81mg Take 1 [facility] mg chewable 05-23 tablet by it y of tablet 00:00: 04:59 mouth [place] 00 :00 daily for Medical 30 days. Branch clopidogreL 2021- No [id number] 75mg Take 1 [facility] 75 mg 05-23 tablet by ity of tablet 00:00: 04:59 mouth [place] 00 :00 daily for Medical 30 days. Branch isosorbide 2021- No [id number] 30mg Take 1 [facility] mononitrate 05-23 tablet by it y of 30 mg 24 hr 00:00: 04:59 [place] tablet 00 :00 daily for Medical 30 days. Branch lisinopriL 2021- No [id number] 5mg Take 1 [facility] 5 mg tablet 05-23 tablet by it y of 00:00: 04:59 mouth [place] 00 :00 daily for Medical 30 days. Branch vitamin b 2021- No [id number] 1{tbl} Take 1 [facility] complex-vit 05-23 tablet by it y of [place] 00:00: 04:59 mouth [place] c-folic 00 :00 daily for Medical acid 0.8 mg 30 days. Bran ch tablet aspirin 81 2021- No [id number] 81mg Take 1 [facility] mg chewable 05-23 tablet by it y of tablet 00:00: 04:59 mouth [place] 00 :00 daily for Medical 30 days. Branch clopidogreL 2021- No [id number] 75mg Take 1 [facility] 75 mg 05-23 tablet by ity of tablet 00:00: 04:59 mouth [place] 00 :00 daily for Medical 30 days. Branch isosorbide 2021- No [id number] 30mg Take 1 [facility] mononitrate 05-23 tablet by it y of 30 mg 24 hr 00:00: 04:59 [place] tablet 00 :00 daily for Medical 30 days. Branch lisinopriL 2021- No [id number] 5mg Take 1 [facility] 5 mg tablet 05-23 tablet by it y of 00:00: 04:59 mouth [place] 00 :00 daily for Medical 30 days. Branch vitamin b 2021- No [id number] 1{tbl} Take 1 [facility] complex-vit 05-23 tablet [...] 21:15: [place] ORAL) 58 Medical Branch NIFEDIPINE No Take by [facility] vers ORAL -18 -18 mouth. ity of 17:12: 00:00 [place] 42 :00 Medical Branch aspirin 81 2021- No 81mg Take 81 mg [facility] mg chewable 05-2218 by mouth ity of tablet 17:12: 00:00 daily. [place] 42 :00 Medical Branch nitroglycer Yes [id number] .4mg Place 1 [facility] in 0.4 mg 2-18 tablet ity of sublingual 00:00: under the [place] tablet 00 tongue Medical every 5 Branch (five) minutes as needed for Chest pain. nitroglycer [id number] 1 [facility] in 0.4 mg 2-18 tablet ity of sublingual 00:00: under the [place] tablet 00 tongue Medical every 5 Branch (five) minutes as needed for Chest pain. nitroglycer Yes [id number] .4mg Place 1 [facility] in 0.4 mg 2-18 tablet ity of sublingual 00:00: under the [place] tablet 00 tongue Medical every 5 Branch (five) minutes as needed for Chest pain. atorvastati 2021- No [id number] 40mg Take 1 Univers n 40 mg 2-18 -21 tablet by ity of tablet 00:00: 04:59 mouth at [place] 00 :00 bedtime Medical for 30 Branch days. carvediloL 2021- No [id number] 6.25mg Take 1 Univers 6.25 mg 2-18 -21 tablet by ity of tablet 00:00: 04:59 mouth 2 [place] 00 :00 (two) Medical times Branch daily with meals for 30 days. NIFEdipine 2021- No [id number] 60mg Take 1 Univers ER 60 mg 2-18 -21 tablet by ity o f tablet 00:00: 04:59 mouth 2 [place] 00 :00 (two) Medical times Branch daily for 30 days. atorvastati 2021- No [id number] 40mg Take 1 Univers n 40 mg 2-18 -21 tablet by ity of tablet 00:00: 04:59 mouth at [place] 00 :00 bedtime Medical for 30 Branch days. carvediloL 2021- No [id number] 6.25mg Take 1 Univers 6.25 mg 2-18 03-21 tablet by ity of tablet 00:00: 04:59 mouth 2 [place] 00 :00 (two) Medical times Branch daily with meals for 30 days. NIFEdipine 2021- No [id number] 60mg Take 1 Univers ER 60 mg 2-18 03-21 tablet by ity o f tablet 00:00: 04:59 mouth 2 [place] 00 :00 (two) Medical times [place] daily for 30 days. atorvastati 2021- No [id number] 40mg Take 1 Univers n 40 mg 05-22 tablet by ity of tablet 00:00: 04:59 mouth at [place] 00 :00 bedtime Medical for 30 Branch days. carvediloL 2021- No [id number] 6.25mg Take 1 Univers 6.25 mg 05-22 tablet by ity of tablet 00:00: 04:59 mouth 2 [place] 00 :00 (two) [facility] times Branch daily with meals for 30 days. NIFEdipine 2021- No [id number] 60mg Take 1 Univers ER 60 mg 05-22 tablet by ity o f tablet 00:00: 04:59 mouth 2 [place] 00 :00 (two) [facility] times [place] daily for 30 days. clopidogreL Yes 75mg [...] 1 [place] 00 :00 dose, On Medical [facility] Branch 05/21/21 at 0730, Routine HYDROcodone 2021- No 1{tbl} 1 tablet, Univers -acetaminop 05-21-17 Oral, ity of hen (NORCO 01:00: 00:17 ONCE, 1 [facility] as 5) 5-325 mg 00 :00 dose, On Medi yoel tablet 1 [facility] Branch tablet 05/20/21 at 1900, Routine isosorbide 0 Yes 30mg 30 mg, Unive rs mononitrate 2-16 Oral, ity of (IMDUR) 24 15:00: DAILY, [place] hr tablet 00 First dose Medi yoel 30 mg on [facility] Branch 05/20/21 at 0900, Until Discontinu ed, Routine vitamin b Yes [id number] 1{tbl} 1 tablet, Univers complex-vit 2-16 Oral, ity of miller 15:00: DAILY, [place] c-folic 00 First dose Medica l acid on Tue [place] (NEPHRO-VIT 05/20/21 at E) 0.8 mg 0900, tablet 1 Until tablet Discontinu ed, Routine clopidogreL 0 2021- No 75mg 75 mg, Uni vers (PLAVIX) 2-16 02-16 Oral, ity of tablet 75 15:00: 15:04 DAILY, [place] mg 00 :38 First dose Medical on [facility] 05/20/21 at 0900, Until Discontinu ed, Routine atorvastati 0 Yes [id number] 40mg 40 mg, Univers n (LIPITOR) 2-16 Oral, QHS, it y of tablet 40 03:00: [place] 00 on [facility] 05/19/21 at Branch 2100, Until Discontinu ed, Routine NIFEdipine 0 Yes [id number] 60mg 60 mg, U nivers ER tablet 2-16 Oral, BID, ity of 60 mg 02:00: First dose [place] 00 (after Medical last Branch modificati on) on [facility] 05/19/21 at 2000, Until Discontinu ed, Routine lisinopriL 0 Yes [id number] 5mg 5 mg, Un kecia (PRINIVIL,Z 2-15 Oral, ity of ESTRIL) 20:45: DAILY, [place] tablet 5 mg 00 First dose Me dical on [facility] 05/19/21 at 1445, Until Discontinu ed, Routine traMADoL 0 Yes 50mg 50 mg, Univers (ULTRAM) 2-12 Oral, ity of tablet 50 21:59: Q6HPRN, [place] mg 37 Starting Medical on [facility] 05/16/21 at 1559, Until Discontinu ed, Routine, Pain (scale 4-6) aspirin 0 Yes 81mg 81 mg, Univers chewable 2-12 Oral, ity of tablet 81 15:00: DAILY, [place] mg 00 First dose Medical on [facility] 05/16/21 at 0900, Until Discontinu ed, Routine NIFEdipine 0 2021- No 60mg 60 mg, Univ ers ER tablet 12 -15 Oral, ity of 60 mg 15:00: 20:33 DAILY, [place] 00 :49 First dose Medical on [facility] 05/16/21 at 0900, Until Discontinu ed, Routine Sliding 2021-0 Yes Subcutaneo Univ ers Scale 2-12 us, [...] at 1900, Until Discontinu ed, Routine
member of congress approving Restricted medication : NEIL THOMAS aspirin [...] IV Push, ity of (PF)) 00:56: Q6HPRN, [place] injection 4 53 Starting Medi yoel mg on Tue Branch 05/15/21 at 1856, Until Discontinu ed, Routine, Nausea and Vomiting (N/V) acetaminoph Yes 650mg 650 mg, Un kecia en 05-16 Oral, ity of (TYLENOL) 00:56: Q6HPRN, [place] tablet 650 38 Starting Medic al mg [...] 1 [place] 00 :00 dose, On Medical Tue Branch 05/15/21 at 1730, STAT iopamidol 2021-0 202- No [id number] 100mL 100 mL, Univers (ISOVUE 05-15 Intravenou ity o f 370-500 mL) 22:00: 22:00 s, ONCE, 1 [place] injection 00 :00 dose, On Medica l 100 mL Fri Branch 05/15/21 at 1600, Routine aspirin 81 Yes 81mg QD Take [address] [facility] EC 5-27 [facility] tablet 15:07: daily. [address] carvediloL Yes 12.5mg Take 12.[address] (COREG) 5-27 mg by [facility] 12.5 MG 15:07: mouth 2 Medical tablet 20 (two) Center times daily with breakfast and dinner. aspirin 81 Yes 81mg QD Take [address] MG EC 5-27 by mouth [facility] tablet 15:07: daily. [address] carvediloL Yes 12.5mg Take 12.5 [facility] [...] a e 1-17 l 19:15: ergocalcife Yes [id number] Q7D Take Meth ale rol 7-25 50,000 [...] hr 42 l tablet ergocalcife 2019-0 Yes [id number] Q7D Take Meth ale rol 7-25 50,000 [...] hr 42 l tablet ergocalcife 2019-0 Yes [id number] Q7D Take Meth ale rol 7-25 50,000 [...] hr 42 l tablet ergocalcife 2019-0 Yes [id number] Q7D Take Meth ale rol 7-25 50,000 [...] hr 42 l tablet ergocalcife 2019-0 Yes [id number] Q7D Take Meth ale rol 7-25 50,000 st (VITAMIN 15:19: Units by Hospi ta D2) 50,000 42 mouth once l unit a week. capsule multivitami 2019-0 Yes 1{tbl} QD Take 1 Me thodi n 7-[address] (DAILY-LARON 15:19: mouth Hospi ta ORAL) 42 daily. l ergocalcife 2019-0 Yes [id number] Q7D Take Meth ale rol 7-25 50,000 [...] Hospita tablet 42 l ergocalcife 2019-0 Yes [id number] Q7D Take Meth ale rol 7-25 50,000 [...] hr 42 l tablet ergocalcife 2019-0 Yes [id number] Q7D Take Meth ale rol 7-25 50,000 [...] hr 42 l tablet ergocalcife 2019-0 Yes [id number] Q7D Take Meth ale rol 7-25 50,000 [...] hr 42 l tablet ergocalcife 2019-0 Yes [id number] Q7D Take Meth ale rol 7-25 50,000 [...] hr 42 l tablet ergocalcife 2019-0 Yes [id number] Q7D Take Meth ale rol 7-25 50,000 st (VITAMIN 15:19: Units by Hospi ta D2) 50,000 42 mouth once l unit a week. capsule ergocalcife 2019-0 Yes [id number] Q7D Take Meth ale rol 7-25 50,000 [...] ta MG 24 hr 42 l tablet multivitami 2019-0 Yes 1{tbl} QD Take 1 [...] hr 42 l tablet ergocalcife 2019-0 Yes [id number] Q7D Take Meth ale rol 7-25 50,000 [...] hr 42 l tablet ergocalcife 2019-0 Yes [id number] Q7D Take Meth ale rol 7-25 50,000 [...] hr 42 l tablet ergocalcife 2019-0 Yes [id number] Q7D Take Meth ale rol 7-25 50,000 [...] hr 42 l tablet ergocalcife 2019-0 Yes [id number] Q7D Take Meth ale rol 7-25 50,000 [...] hr 42 l tablet ergocalcife 2019-0 Yes [id number] Q7D Take Meth ale rol 7-25 50,000 st (VITAMIN 15:19: Units by Hospi ta D2) 50,000 42 mouth once l unit a week. capsule ergocalcife 2019-0 Yes [id number] Q7D Take Meth ale rol 7-25 50,000 [...] Hospita tablet 42 l ergocalcife 2019-0 Yes [id number] Q7D Take Meth ale rol 7-25 50,000 [...] hr 42 l tablet ergocalcife 2019-0 Yes [id number] Q7D Take Meth ale rol 7-25 50,000 [...] hr 42 l tablet ergocalcife 2019-0 Yes [id number] Q7D Take Meth ale rol 7-25 50,000 [...] hr 42 l tablet ergocalcife 2019-0 Yes [id number] Q7D Take Meth ale rol 7-25 50,000 [...] hr 42 l tablet ergocalcife 2019-0 Yes [id number] Q7D Take Meth ale rol 7-25 50,000 [...] hr 42 l tablet ergocalcife 2019-0 Yes [id number] Q7D Take Meth ale rol 7-25 50,000 [...] hr 42 l tablet ergocalcife 2019-0 Yes [id number] Q7D Take Meth ale rol 7-25 50,000 [...] a 25 mg 00 l tablet metoprolol 2019-0 Yes TK 1 T PO [...] DAILY Memoria 7-10 Paul l 00:00: Furosemide 2018-0 Yes Salman TWICE Dickson kulwinder 7-10 Paul [...] MG 00:00: mouth. Hospita tablet 00 l hydrALAZINE 2019-0 Yes 1{tbl} Take [...] 60 MG 00 l 24 hr tablet lactulose 2019-0 Yes Take by Metho di [...] Immunizations Ordered Filled Immunization Date Status Comments [facility] e Immunization Name Name Influenza High Dose 2021-02-02 Completed Unive rsity of 00:00:00 [facility] Influenza High Dose 2021-02-02 Completed Unive rsity of 00:00:00 [facility] Influenza High Dose 2021-02-02 Completed Unive rsity of 00:00:00 [facility] Influenza High Dose 2021-02-02 Completed Unive rsity of 00:00:00 [facility] Influenza High Dose 2021-02-02 Completed Unive rsity of 00:00:00 [facility] Influenza High Dose 2021-02-02 Completed Unive rsity of 00:00:00 [facility] Influenza High Dose 2021-02-02 Completed Unive rsity of 00:00:00 [facility] Influenza High Dose 2021-02-02 Completed Unive rsity of 00:00:00 [place] [facility] Influenza High Dose 2021-02-02 Completed Unive rsity of 00:00:00 [place] [facility] Influenza High Dose 2021-02-02 Completed Unive rsity of 00:00:00 [place] [facility] Influenza High Dose 2021-02-02 Completed Unive rsity of 00:00:00 [place] [facility] Influenza High Dose 2021-02-02 Completed Unive rsity of 00:00:00 [place] [facility] Influenza High Dose 2021-02-02 Completed Unive rsity of 00:00:00 [place] [facility] Influenza High Dose 2021-02-02 Completed Unive rsity of 00:00:00 [facility] Branch Influenza High Dose 2021-02-02 Completed Unive rsity of 00:00:00 [facility] Branch Influenza High Dose 2021-02-02 Completed Unive rsity of 00:00:00 [facility] Branch Influenza High Dose 2021-02-02 Completed Unive rsity of 00:00:00 [facility] SARS-COV-2 COVID-19 2020-07-30 Completed Unive rsity of PFIZER VACCINE 00:00:00 [facility] Branch SARS-COV-2 COVID-19 2020-07-30 Completed Unive rsity of PFIZER VACCINE 00:00:00 [facility] SARS-COV-2 COVID-19 2020-07-30 Completed Unive rsity of PFIZER VACCINE 00:00:00 [facility] SARS-COV-2 COVID-19 2020-07-30 Completed Unive rsity of PFIZER VACCINE 00:00:00 [facility] SARS-COV-2 COVID-19 2020-07-30 Completed Unive rsity of PFIZER VACCINE 00:00:00 [facility] Branch SARS-COV-2 COVID-19 2020-07-30 Completed Unive rsity of PFIZER VACCINE 00:00:00 [facility] Branch SARS-COV-2 COVID-19 2020-07-30 Completed Unive rsity of PFIZER VACCINE 00:00:00 [facility] SARS-COV-2 COVID-19 2020-07-30 Completed Unive rsity of PFIZER VACCINE 00:00:00 [facility] SARS-COV-2 COVID-19 2020-07-30 Completed Unive rsity of PFIZER VACCINE 00:00:00 [facility] SARS-COV-2 COVID-19 2020-07-30 Completed Unive rsity of PFIZER VACCINE 00:00:00 [facility] SARS-COV-2 COVID-19 2020-07-30 Completed Unive rsity of PFIZER VACCINE 00:00:00 [facility] SARS-COV-2 COVID-19 2020-07-30 Completed Unive rsity of PFIZER VACCINE 00:00:00 [facility] SARS-COV-2 COVID-19 2020-07-30 Completed Unive rsity of PFIZER VACCINE 00:00:00 [facility] Branch SARS-COV-2 COVID-19 2020-07-30 Completed Unive rsity of PFIZER VACCINE 00:00:00 [facility] SARS-COV-2 COVID-19 2020-07-30 Completed Unive rsity of PFIZER VACCINE 00:00:00 [facility] SARS-COV-2 COVID-19 2020-07-30 Completed Unive rsity of PFIZER VACCINE 00:00:00 [facility] SARS-COV-2 COVID-19 2020-07-30 Completed Unive rsity of PFIZER VACCINE 00:00:00 [facility] SARS-COV-2 COVID-19 2020-07-11 Completed Unive rsity of PFIZER VACCINE 00:00:00 [facility] SARS-COV-2 COVID-19 2020-07-11 Completed Unive rsity of PFIZER VACCINE 00:00:00 [facility] SARS-COV-2 COVID-19 2020-07-11 Completed Unive rsity of PFIZER VACCINE 00:00:00 [facility] SARS-COV-2 COVID-19 2020-07-11 Completed Unive rsity of PFIZER VACCINE 00:00:00 [facility] SARS-COV-2 COVID-19 2020-07-11 Completed Unive rsity of PFIZER VACCINE 00:00:00 [facility] SARS-COV-2 COVID-19 2020-07-11 Completed Unive rsity of PFIZER VACCINE 00:00:00 [facility] SARS-COV-2 COVID-19 2020-07-11 Completed Unive rsity of PFIZER VACCINE 00:00:00 [facility] SARS-COV-2 COVID-19 2020-07-11 Completed Unive rsity of PFIZER VACCINE 00:00:00 [facility] SARS-COV-2 COVID-19 2020-07-11 Completed Unive rsity of PFIZER VACCINE 00:00:00 [facility] SARS-COV-2 COVID-19 2020-07-11 Completed Unive rsity of PFIZER VACCINE 00:00:00 [facility] SARS-COV-2 COVID-19 2020-07-11 Completed Unive rsity of PFIZER VACCINE 00:00:00 [facility] SARS-COV-2 COVID-19 2020-07-11 Completed Unive rsity of PFIZER VACCINE 00:00:00 [facility] SARS-COV-2 COVID-19 2020-07-11 Completed Unive rsity of PFIZER VACCINE 00:00:00 [facility] SARS-COV-2 COVID-19 2020-07-11 Completed Unive rsity of PFIZER VACCINE 00:00:00 [facility] SARS-COV-2 COVID-19 2020-07-11 Completed Unive rsity of PFIZER VACCINE 00:00:00 [facility] SARS-COV-2 COVID-19 2020-07-11 Completed Unive rsity of PFIZER VACCINE 00:00:00 [facility] SARS-COV-2 COVID-19 2020-07-11 Completed Unive rsity of PFIZER VACCINE 00:00:00 [facility] PPD (TB) 2018-03-20 Completed University of 00:00:00 [facility] PPD (TB) 2018-03-20 Completed University of 00:00:00 [facility] PPD (TB) 2018-03-20 Completed University of 00:00:00 [facility] PPD (TB) 2018-03-20 Completed University of 00:00:00 [facility] PPD (TB) 2018-03-20 Completed University of 00:00:00 [facility] PPD (TB) 2018-03-20 Completed University of 00:00:00 [facility] PPD (TB) 2018-03-20 Completed University of 00:00:00 [facility] PPD (TB) 2018-03-20 Completed University of 00:00:00 [facility] PPD (TB) 2018-03-20 Completed University of 00:00:00 [facility] PPD (TB) 2018-03-20 Completed University of 00:00:00 [facility] PPD (TB) 2018-03-20 Completed University of 00:00:00 [facility] PPD (TB) 2018-03-20 Completed University of 00:00:00 [facility] PPD (TB) 2018-03-20 Completed University of 00:00:00 [facility] PPD (TB) 2018-03-20 Completed University of 00:00:00 [facility] PPD (TB) 2018-03-20 Completed University of 00:00:00 [facility] PPD (TB) 2018-03-20 Completed University of 00:00:00 [facility] PPD (TB) 2018-03-20 Completed University of 00:00:00 [facility] Influenza Virus 2018-01-20 Completed Universit y of Vaccine - Whole 00:00:00 [facility] Influenza Virus 2018-01-20 Completed Universit y of Vaccine - Whole 00:00:00 [facility] Influenza Virus 2018-01-20 Completed Universit y of Vaccine - Whole 00:00:00 [facility] Influenza Virus 2018-01-20 Completed Universit y of Vaccine - Whole 00:00:00 [facility] Influenza Virus 2018-01-20 Completed Universit y of Vaccine - Whole 00:00:00 [facility] Influenza Virus 2018-01-20 Completed Universit y of Vaccine - Whole 00:00:00 [facility] Influenza Virus 2018-01-20 Completed Universit y of Vaccine - Whole 00:00:00 [facility] Influenza Virus 2018-01-20 Completed Universit y of Vaccine - Whole 00:00:00 [facility] Influenza Virus 2018-01-20 Completed Universit y of Vaccine - Whole 00:00:00 [facility] Influenza Virus 2018-01-20 Completed Universit y of Vaccine - Whole 00:00:00 [facility] Influenza Virus 2018-01-20 Completed Universit y of Vaccine - Whole 00:00:00 [facility] Influenza Virus 2018-01-20 Completed Universit y of Vaccine - Whole 00:00:00 [facility] Influenza Virus 2018-01-20 Completed Universit y of Vaccine - Whole 00:00:00 [facility] Influenza Virus 2018-01-20 Completed Universit y of Vaccine - Whole 00:00:00 [facility] Influenza Virus 2018-01-20 Completed Universit y of Vaccine - Whole 00:00:00 [facility] Influenza Virus 2018-01-20 Completed Universit y of Vaccine - Whole 00:00:00 [facility] Influenza Virus 2018-01-20 Completed Universit y of Vaccine - Whole 00:00:00 [facility] Branch Pneumococcal 2014-08-02 Completed University o f [...] ical PPSV23 (PNEUMOVAX) Branch Pneumococcal 2014-08-02 Completed [place] o f Polysaccharide, 00:00:00 [place] Med ical PPSV23 (PNEUMOVAX) Branch Pneumococcal 2014-08-02 Completed [place] o f Polysaccharide, 00:00:00 [place] Med ical PPSV23 (PNEUMOVAX) Branch Vital Signs Vital Name Observation Time Observation Value Comments Source Systolic blood 2021-09-29 20:09:00 139 mm[Hg] Univer sity of pressure [facility] Diastolic blood 2021-09-29 20:09:00 61 mm[Hg] Unive rsity of pressure [facility] Heart rate 2021-09-29 20:09:00 73 /min Universi ty of [facility] Body temperature 2021-09-29 20:09:00 36.5 Priya Univ ersity of [facility] Respiratory rate 2021-09-29 20:09:00 16 /min Univ ersity of [facility] Body height 2021-09-29 20:09:00 160 cm Universi ty of [facility] Body weight 2021-09-29 20:09:00 61.326 kg Universi ty of [place] [facility] [place] BMI 2021-09-29 20:09:00 23.95 kg/m2 Universi ty of [facility] Oxygen saturation in 2021-09-29 20:09:00 93 /min [facility] Arterial blood by [facility] Pulse oximetry Branch Systolic blood 2021-09-29 20:09:00 139 mm[Hg] Univer sity of [facility] Diastolic blood 2021-09-29 20:09:00 61 mm[Hg] Unive rsity of pressure [facility] Heart rate 2021-09-29 20:09:00 73 /min Universi ty of [facility] Body temperature 2021-09-29 20:09:00 36.5 Priya Univ ersity of [facility] Respiratory rate 2021-09-29 20:09:00 16 /min Univ ersity of [facility] Body height 2021-09-29 20:09:00 160 cm Universi ty of [facility] Body weight 2021-09-29 20:09:00 61.326 kg Universi ty of [facility] BMI 2021-09-29 20:09:00 23.95 kg/m2 Universi ty of [place] [facility] Oxygen saturation in 2021-09-29 20:09:00 93 /min University of Arterial blood by [facility] Pulse oximetry Branch WEIGHT 2021-07-03 13:00:00 60.4 [...] 01:40:00 126 mm[Hg] Univer sity of pressure [facility] Diastolic blood 2021-05-23 01:40:00 46 mm[Hg] Unive rsity of [facility] Heart rate 2021-05-23 01:40:00 62 /min Universi ty [facility] Body temperature 2021-05-23 01:40:00 35.67 Priya Univ ersity of [facility] Respiratory rate 2021-05-23 01:40:00 16 /min [facility] weight 2021-05-23 01:40:00 67.3 [address]i ty [facility] BMI 2021-05-23 01:40:00 26[facility]28 [facility] 2021-05-22 17:16:00 93 /min [facility] Arterial blood by [facility] Pulse oximetry Branch Body height 2021-05-19 19:34:00 160 cm Universi [facility] Systolic blood 2021-07-04 08:10:00 149 mm[Hg] [facility] Diastolic blood 2021-07-04 08:10:00 65 mm[Hg] [facility] Heart rate 2021-07-04 08:10:00 71 /min [facility] Body temperature 2021-07-04 08:10:00 36.22 Priya [facility] Respiratory rate 2021-07-04 08:10:00 18 /min [facility] Oxygen saturation in 2021-07-04 08:10:00 93 /min [facility] Arterial blood by Medical nter Pulse oximetry Systolic blood 2021-07-03 14:23:00 123 mm[Hg] [facility] Diastolic blood 2021-07-03 14:23:00 60 mm[Hg] [facility] Heart rate 2021-07-03 14:23:00 70 /min [facility] Body temperature 2021-07-03 14:23:00 35.94 Priya [facility] Respiratory rate 2021-07-03 14:23:00 18 /min [facility] Oxygen saturation in 2021-07-03 14:23:00 97 /min [facility] Arterial blood by Medical Ce nter Pulse oximetry Body weight 2021-07-03 13:00:00 60.4 kg [facility] BMI 2021-07-03 13:00:00 23.59 kg/m2 [facility] Systolic blood 2021-07-03 08:18:00 156 mm[Hg] [facility] Diastolic blood 2021-07-03 08:18:00 67 mm[Hg] [facility] Heart rate 2021-07-03 08:18:00 68 /min [facility] Body temperature 2021-07-03 08:18:00 36.22 Priya [facility] Respiratory rate 2021-07-03 08:18:00 20 /min [facility] Oxygen saturation in 2021-07-03 08:18:00 94 /min [facility] Arterial blood by Medical Ce nter Pulse oximetry Heart rate 2021-07-02 10:00:00 72 /min [facility] Systolic blood 2021-07-02 08:00:00 171 mm[Hg] [facility] Diastolic blood 2021-07-02 08:00:00 78 mm[Hg] [facility] Body temperature 2021-07-02 08:00:00 36.56 Priya [facility] Respiratory rate 2021-07-02 08:00:00 20 /min [facility] Oxygen saturation in 2021-07-02 08:00:00 94 /min [facility] Arterial blood by Medical Ce nter Pulse oximetry Body weight 2021-07-02 04:21:00 62.37 kg [facility] BMI 2021-07-02 04:21:00 24.36 kg/m2 [facility] Systolic blood 2021-07-01 09:15:00 167 mm[Hg] [facility] Diastolic blood 2021-07-01 09:15:00 71 mm[Hg] [facility] Heart rate 2021-07-01 09:15:00 71 /min [facility] Respiratory rate 2021-07-01 09:15:00 14 /min [facility] Oxygen saturation in 2021-07-01 09:15:00 96 /min [facility] Arterial blood by Medical Ce nter Pulse oximetry Body temperature 2021-07-01 09:00:00 36.44 Priya [facility] Systolic blood 2021-06-29 14:24:00 169 mm[Hg] [facility] Diastolic blood 2021-06-29 14:24:00 71 mm[Hg] [facility] Heart rate 2021-06-29 14:24:00 70 /min [facility] Body temperature 2021-06-29 14:24:00 36.67 Priya [facility] Respiratory rate 2021-06-29 14:24:00 20 /min [facility] Oxygen saturation in 2021-06-29 14:24:00 98 /min [facility] Arterial blood by Medical Ce nter Pulse oximetry Systolic blood 2021-06-29 07:46:00 133 mm[Hg] [facility] Diastolic blood 2021-06-29 07:46:00 63 mm[Hg] [facility] Heart rate 2021-06-29 07:46:00 70 /min [facility] Body temperature 2021-06-29 07:46:00 36.44 Priya [facility] Respiratory rate 2021-06-29 07:46:00 20 /min [facility] Oxygen saturation in 2021-06-29 07:46:00 97 /min [facility] Arterial blood by Medical Ce nter Pulse oximetry Systolic blood 2021-06-26 10:15:00 169 mm[Hg] [facility] Diastolic blood 2021-06-26 10:15:00 66 mm[Hg] [facility] Heart rate 2021-06-26 10:15:00 71 /min [facility] Body temperature 2021-06-26 10:15:00 36.56 Priya [facility] Respiratory rate 2021-06-26 10:15:00 16 /min [facility] Oxygen saturation in 2021-06-26 10:15:00 99 /min [facility] Arterial blood by Medical Ce nter Pulse oximetry Systolic blood 2021-06-26 08:15:00 128 mm[Hg] [facility] Diastolic blood 2021-06-26 08:15:00 53 mm[Hg] [facility] Heart rate 2021-06-26 08:15:00 70 /min [facility] Body temperature 2021-06-26 08:15:00 36.5 Priya [facility] Respiratory rate 2021-06-26 08:15:00 9 /min [facility] Oxygen saturation in 2021-06-26 08:15:00 97 /min [facility] Arterial blood by Medical Ce nter Pulse oximetry Body weight 2021-06-25 00:00:00 64.5 kg [facility] BMI 2021-06-25 00:00:00 25.19 kg/m2 [facility] Body height 2021-06-13 11:09:00 160 cm [facility] Body height 2020-07-24 16:34:00 160 cm [facility] Body weight 2020-07-24 16:34:00 67 kg [facility] BMI 2020-07-24 16:34:00 26.17 kg/m2 [facility] Temperature Oral (F) 2019-02-19 22:00:[address] [facility] 2019-02-19 22:00:00 [facility] Respitory Rate 2019-02-19 22:00:00 [facility] Systolic (mm Hg) 2019-02-19 22:00:00 Dickson [facility] Diastolic (mm Hg) 2019-02-19 22:00:00 [facility] [place] Height 2019-02-19 11:49:00 [facility] Weight 2019-02-19 11:49:00 [facility] Height 2019-01-26 05:47:00 [facility] Heart Rate 2019-01-26 05:47:00 [facility] Respitory Rate 2019-01-26 05:47:00 [facility] Systolic (mm Hg) 2019-01-26 05:47:00 Dickson [facility] Diastolic (mm Hg) 2019-01-26 05:47:00 [facility] Temperature Oral (F) 2019-01-26 05:19:00 101.3 F [facility] Weight 2019-01-26 01:51:00 [facility] Heart Rate 2018-10-11 20:05:00 [facility] Systolic (mm Hg) 2018-10-11 20:05:00 Dickson [facility] [place] Diastolic (mm Hg) 2018-10-11 20:05:00 [facility] [place] Temperature Oral (F) 2018-10-11 20:00:00 98.1 F [facility] Respitory Rate 2018-10-11 20:00:00 [facility] Height 2018-10-10 13:16:00 [facility] Weight 2018-10-10 13:16:00 [facility] Procedures Procedure Date / Time Performing Clinician Source Performed EXTERNAL PROVIDER RECORDS 2022-06-02 06:01:00 Doctor Unassigned, No [facility] EXTERNAL PROVIDER RECORDS 2022-04-06 06:01:00 Doctor Unassigned, No [facility] EXTERNAL PROVIDER RECORDS 2021-12-15 05:01:00 Doctor Unassigned, No [facility] EXTERNAL PROVIDER - ADC 2021-10-21 05:01:00 Doctor Unassigned, N o [facility] ARRYTHMIA IMPLANT REPORT 2021-07-06 00:00:00 Provider, Default C [facility] POCT-GLUCOSE METER 2021-07-04 08:33:00 Logan Russo [facility] CBC (HEMOGRAM ONLY) 2021-07-04 04:37:00 Martinez Ricardo [facility] BASIC METABOLIC PANEL 2021-07-04 04:37:00 Martinez Ricardo [facility] MAGNESIUM 2021-07-04 04:37:00 Martinez Ricardo [facility] PHOSPHORUS 2021-07-04 04:37:00 Martinez Ricardo [facility] XR CHEST 1 VIEW PORTABLE 2021-07-04 04:30:00 Martinez Ricardo [facility] / BEDSIDE [facility] POCT-GLUCOSE METER 2021-07-03 21:18:00 RussoLogan del cid [facility] POCT-GLUCOSE METER 2021-07-03 17:40:00 Logan Russo [facility] SARS-COV2/RT-PCR ([facility] & 2021-07-03 17:24:00 Martinez Ricardo [facility] REF LABS) [facility] POCT-GLUCOSE METER 2021-07-03 16:06:00 Logan Russo [facility] REPORT OF PROCEDURE - 2021-07-03 15:34:23 AmaratungeAngela [facility] ENDOSCOPY URL [facility] COLONOSCOPY 2021-07-03 15:05:00 [facility] 2021-07-03 15:04:00 [facility] COLONOSCOPY,POLYPECTOMY 2021-07-03 14:39:00 AmaratungRowan cerda [facility] COLONOSCOPY, WITH 2021-07-03 14:39:00 [facility]OM[facility] COLONOSCOPY 2021-07-03 14:00:00 [facility]o [facility] POCT-GLUCOSE METER 2021-07-03 13:31:00 Logan Russo [facility] COLONOSCOPY 2021-07-03 13:00:00 AmaratAngela croft [facility] HEMODIALYSIS INPATIENT 2021-07-03 10:32:50 Wilner Aponte [facility] POCT-GLUCOSE METER 2021-07-03 08:44:00 Logan Russo [facility] XR CHEST 1 VIEW PORTABLE 2021-07-03 05:24:00 Martinez Ricardo [facility] / BEDSIDE [facility] CBC (HEMOGRAM ONLY) 2021-07-03 03:08:00 Martinez Ricardo [facility] BASIC METABOLIC PANEL 2021-07-03 03:08:[address] [facility] MAGNESIUM 2021-07-03 03:08:00 [facility] 2021-07-03 03:08:00 [facility] POCT-[facility]UCOSE METER 2021-07-02 21:26:00 RussoLogan [facility] POCT-GLUCOSE METER 2021-07-02 17:49:00 RussoLogan [facility] POCT-GLUCOSE METER 2021-07-02 12:48:00 RussoLogan [facility] POCT-GLUCOSE METER 2021-07-02 08:33:00 RussoLogan [facility] XR CHEST 1 VIEW PORTABLE 2021-07-02 06:45:00 Davion [facility] CBC (HEMOGRAM ONLY) 2021-07-02 05:29:00 [facility] METABOLIC PANEL 2021-07-02 05:29:[address] [facility] MAGNESIUM 2021-07-02 05:29:00 Davion [facility] PHOSPHORUS 2021-07-02 05:29:00 Davion [facility] POCT-GLUCOSE METER 2021-07-01 21:45:00 RussoLogan [facility] POCT-GLUCOSE METER 2021-07-01 17:44:00 RussoLogan [facility] POCT-GLUCOSE METER 2021-07-01 13:26:00 Logan Russo [facility] HEMODIALYSIS INPATIENT 2021-07-01 12:51:00 Wilner Aponte [facility] HEMODIALYSIS INPATIENT 2021-07-01 09:16:58 Wilner Aponte [facility] POCT-GLUCOSE METER 2021-07-01 08:31:00 Russo, Logan Vaca [facility] XR CHEST 1 VIEW PORTABLE 2021-07-01 05:38:00 Martinez Ricardo [facility] CBC (HEMOGRAM ONLY) 2021-07-01 05:15:00 Martinez Ricardo [facility] BASIC METABOLIC PANEL 2021-07-01 05:15:[address] [facility] MAGNESIUM 2021-07-01 05:15:00 Martinez Ricardo [facility] PHOSPHORUS 2021-07-01 05:15:00 Martinez Ricardo [facility] POCT-GLUCOSE METER 2021-06-30 21:03:00 Logan Russo [facility] VENOGRAM 2021-06-30 18:06:00 Krzysztof Ryan [facility] POCT-GLUCOSE METER 2021-06-30 17:27:00 Logan Russo [facility] XR ABDOMEN/KUB 1 VIEW 2021-06-30 17:21:00 Angela Loco [facility] POCT-GLUCOSE METER 2021-06-30 12:24:00 RussoLogan [facility] POCT-GLUCOSE METER 2021-06-30 08:15:00 Logan Russo [facility] CBC (HEMOGRAM ONLY) 2021-06-30 04:40:00 Martinez Ricardo [facility] BASIC METABOLIC PANEL 2021-06-30 04:40:00 Martinez Ricardo [facility] MAGNESIUM 2021-06-30 04:40:00 Martinez Ricardo [facility] PHOSPHORUS 2021-06-30 04:40:00 Martinez Ricardo [facility] XR CHEST 1 VIEW PORTABLE 2021-06-30 03:46:00 Martinez Ricardo [facility] PREPARE LEUKO-REDUCED RBC 2021-06-29 23:54:00 Dillon Ricardo [facility] POCT-GLUCOSE METER 2021-06-29 21:53:00 Russo, Logan Vaca [facility] POCT-GLUCOSE METER 2021-06-29 17:44:00 Russo, Logan Vaca [facility] POCT-GLUCOSE METER 2021-06-29 14:20:00 RussoLogan [facility] HEMODIALYSIS INPATIENT 2021-06-29 13:25:00 MylesBertrand DIANE [facility] POCT-GLUCOSE METER 2021-06-29 08:39:00 Russo, Logan Vaca [facility] XR CHEST 1 VIEW PORTABLE 2021-06-29 05:20:00 Martinez Ricardo [facility] / BEDSIDE [facility] CBC (HEMOGRAM ONLY) 2021-06-29 04:49:00 Martinez Ricardo [facility] BASIC METABOLIC PANEL 2021-06-29 04:49:00 Martinez Ricardo [facility] MAGNESIUM 2021-06-29 04:49:00 Martinez Ricardo [facility] PHOSPHORUS 2021-06-29 04:49:00 Martinez Ricardo [facility] POCT-GLUCOSE METER 2021-06-28 19:42:00 RussoLogan [facility] POCT-GLUCOSE METER 2021-06-28 17:22:00 Logan Russo [facility] CBC W/PLT COUNT & AUTO 2021-06-28 15:23:00 [facility] CBC W/PLT COUNT & AUTO 2021-06-28 15:23:00 Nathalie Prince [facility] POCT-GLUCOSE METER 2021-06-28 12:31:00 Logan Russo [facility] TRANSFUSE LEUKO-REDUCED 2021-06-28 11:03:00 Martinez Ricardo [facility] RED BLOOD CELLS [facility] PREPARE LEUKO-REDUCED RBC 2021-06-28 10:49:00 Kahlenberg, Zachar y [facility] POCT-GLUCOSE METER 2021-06-28 08:32:00 Logan Russo [facility] XR CHEST 1 VIEW PORTABLE 2021-06-28 04:23:00 Martinez Ricardo [facility] / BEDSIDE [facility] CBC (HEMOGRAM ONLY) 2021-06-28 04:05:00 Martinez Ricardo [facility] BASIC METABOLIC PANEL 2021-06-28 04:05:[address] [facility] MAGNESIUM 2021-06-28 04:05:00 Martinez Ricardo [facility] PHOSPHORUS 2021-06-28 04:05:00 Martinez Ricardo [facility] PREPARE LEUKO-REDUCED RBC 2021-06-27 23:54:00 Dillon Ricardo [facility] POCT-GLUCOSE METER 2021-06-27 21:27:00 Logan Russo [facility] POCT-GLUCOSE METER 2021-06-27 17:51:00 RussoLogan [facility] POCT-GLUCOSE METER 2021-06-27 15:02:00 Logan Russo [facility] POCT-GLUCOSE METER 2021-06-27 12:08:00 Logan Russo [facility] POCT-GLUCOSE METER 2021-06-27 08:23:00 Logan Russo [facility] SARS-COV2/RT-PCR ([facility] & 2021-06-27 04:13:00 Martinez Ricardo [facility] REF LABS) [facility] CBC (HEMOGRAM ONLY) 2021-06-27 04:08:00 Martinez Ricardo [facility] BASIC METABOLIC PANEL 2021-06-27 04:08:00 Martinez Ricardo [facility] MAGNESIUM 2021-06-27 04:08:00 Martinez Ricardo [facility] PHOSPHORUS 2021-06-27 04:08:00 Martinez Ricardo [facility] APTT 2021-06-27 04:08:00 MaryAbel hernandez [facility] PROTHROMBIN TIME/INR 2021-06-27 04:08:00 MaryAbel hernandez [facility] XR CHEST 1 VIEW PORTABLE 2021-06-27 03:58:00 Martinez Ricardo [facility] / BEDSIDE [facility] POCT-GLUCOSE METER 2021-06-26 20:59:00 Russo, Logan Vaca [facility] HEMODIALYSIS INPATIENT 2021-06-26 19:13:00 Wilner Aponte [facility] POCT-GLUCOSE METER 2021-06-26 18:55:00 Russo, Logna Vaca [facility] HEMOGLOBIN AND HEMATOCRIT 2021-06-26 11:31:00 Dannielle Erwin [facility] POCT-GLUCOSE METER 2021-06-26 11:15:00 Russo, Logan Vaca [facility] POCT-GLUCOSE METER 2021-06-26 09:16:00 RussoLogan [facility] LASER EXTRACTION,LEAD 2021-06-26 07:30:00 Krzysztof Ryan [facility] TRANSFUSE LEUKO-REDUCED 2021-06-26 06:15:00 Martinez Ricardo [facility] RED BLOOD CELLS [facility] PREPARE LEUKO-REDUCED RBC 2021-06-26 06:01:00 Dillon Ricardo [facility] CBC (HEMOGRAM ONLY) 2021-06-26 03:25:00 Martinez Ricardo [facility] BASIC METABOLIC PANEL 2021-06-26 03:25:00 Martinez Ricardo [facility] MAGNESIUM 2021-06-26 03:25:00 Martinez Ricardo [facility] PHOSPHORUS 2021-06-26 03:25:00 Martinez Ricardo [facility] APTT 2021-06-26 03:25:00 MaryAbel hernandez [facility] PROTHROMBIN TIME/INR 2021-06-26 03:25:00 MaryAbel hernandez [facility] XR CHEST 1 VIEW PORTABLE 2021-06-26 01:25:00 [facility] POCT-GLUCOSE METER 2021-06-25 21:46:00 Logan Russo [facility] TYPE AND SCREEN, 2021-06-25 18:55:00 Krzysztof Ryan [facility] AUTOMATED [facility] IR TUNNELED CATHETER 2021-06-25 17:45:00 Gurinder Nash [facility] INSERTION [facility] POCT-GLUCOSE METER 2021-06-25 11:18:00 Logan Russo [facility] ECG 12-LEAD 2021-06-25 09:57:06 Unknown, 7 [facility] ECG 12-LEAD 2021-06-25 09:57:06 Unknown, 7 [facility] ECG 12-LEAD 2021-06-25 09:56:17 Unknown, 7 [facility] CBC (HEMOGRAM ONLY) 2021-06-25 02:56:00 Davion Martinez [facility] BASIC METABOLIC PANEL 2021-06-25 02:56:00 Martinez Ricardo [facility] MAGNESIUM 2021-06-25 02:56:00 Davion [facility] PHOSPHORUS 2021-06-25 02:56:00 Davion [facility] APTT 2021-06-25 02:56:00 Abel Hernandez [facility] PROTHROMBIN TIME/INR 2021-06-25 02:56:00 Abel Hernandez [facility] XR CHEST 1 VIEW PORTABLE 2021-06-25 02:31:00 Davion [facility] / BEDSIDE [facility] POCT-GLUCOSE METER 2021-06-24 22:02:00 Logan Russo [facility] XR ABDOMEN/KUB 1 VIEW 2021-06-24 18:29:00 Gurinder Nash [facility] POCT-GLUCOSE METER 2021-06-24 16:07:00 RussoLogan [facility] POCT-GLUCOSE METER 2021-06-24 12:26:00 Beth, Logan Vaca [facility] HEMODIALYSIS INPATIENT 2021-06-24 11:25:03 Wilner Aponte [facility] POCT-GLUCOSE METER 2021-06-24 08:28:00 Beth, Logan Vaca [facility] CBC (HEMOGRAM ONLY) 2021-06-24 03:01:00 Martinez Ricardo [facility] BASIC METABOLIC PANEL 2021-06-24 03:01:[address] [facility] MAGNESIUM 2021-06-24 03:01:00 Martinez Ricardo [facility] PHOSPHORUS 2021-06-24 03:01:00 Davion [facility] APTT 2021-06-24 03:01:00 Abel Hernandez [facility] PROTHROMBIN TIME/INR 2021-06-24 03:01:00 Abel Hernandez [facility] XR CHEST 1 VIEW PORTABLE 2021-06-24 00:32:00 Martinez Ricardo [facility] / BEDSIDE [facility] POCT-GLUCOSE METER 2021-06-23 20:56:00 RussoLogan del cid [facility] POCT-GLUCOSE METER 2021-06-23 16:10:00 Logan Rsuso [facility] BASIC METABOLIC PANEL 2021-06-23 12:59:00 Omaira Manzo [facility] POCT-GLUCOSE METER 2021-06-23 11:20:00 RussoLogan del cid [facility] POCT-GLUCOSE METER 2021-06-23 07:29:00 Logan Russo [facility] BASIC METABOLIC PANEL 2021-06-23 04:49:00 Omaira Manzo [facility] MAGNESIUM 2021-06-23 04:49:00 Kahlenberg, [facility] PHOSPHORUS 2021-06-23 04:49:00 Jaimeelynda [facility] CBC (HEMOGRAM ONLY) 2021-06-23 02:41:00 Davion [facility] APTT 2021-06-23 02:41:00 MaryAbel hernandez [facility] PROTHROMBIN TIME/INR 2021-06-23 02:41:00 Abel Hernandez [facility] XR CHEST 1 VIEW PORTABLE 2021-06-23 01:19:00 [facility] POCT-GLUCOSE METER 2021-06-22 22:11:00 Logan Russo [facility] POCT-GLUCOSE METER 2021-06-22 18:02:00 Logan Russo [facility] 2D ECHO W/ DOPPLER 2021-06-22 15:55:38 Lupis Erwin [facility] METABOLIC PANEL 2021-06-22 14:30:00 Jovany [facility] POCT-GLUCOSE METER 2021-06-22 12:25:00 Logan Russo [facility] HEMODIALYSIS INPATIENT 2021-06-22 11:44:15 Wilner Aponte [facility] OXYGEN SATURATION, 2021-06-22 10:35:00 Lupis Erwin CH, I [facility] BASIC METABOLIC PANEL 2021-06-22 05:37:00 Omaira Manzo [facility] CBC (HEMOGRAM ONLY) 2021-06-22 01:34:00 Davion [facility] APTT 2021-06-22 01:34:00 Abel Hernandez [facility] PROTHROMBIN TIME/INR 2021-06-22 01:34:00 Abel Hernandez [facility] BASIC METABOLIC PANEL 2021-06-22 01:33:00 Jovany [facility] MAGNESIUM 2021-06-22 01:33:00 Davion [facility] PHOSPHORUS 2021-06-22 01:33:00 Davion [facility] XR CHEST 1 VIEW PORTABLE 2021-06-22 01:05:00 Davion [facility] POCT-GLUCOSE METER 2021-06-21 21:09:00 RussoLogan [facility] POCT-GLUCOSE METER 2021-06-21 18:58:00 RussoLogan [facility] POCT-GLUCOSE METER 2021-06-21 13:30:00 RussoLogan [facility] BASIC METABOLIC PANEL 2021-06-21 13:29:[address] [facility]KO-REDUCED RBC 2021-06-21 03:28:00 Derick Carver Si [facility] BASIC METABOLIC PANEL 2021-06-21 03:21:00 Omaira Manzo [facility] MAGNESIUM 2021-06-21 03:21:00 R[facility] PHOSPHORUS 2021-06-21 03:21:00 sarah [facility] CBC (HEMOGRAM ONLY) 2021-06-21 03:21:00 Davion [facility] APTT 2021-06-21 03:21:00 MaryAbel hernandez [facility] PROTHROMBIN TIME/INR 2021-06-21 03:21:00 Abel Hernandez [facility] XR CHEST 1 VIEW PORTABLE 2021-06-21 01:34:00 Davion [facility] PREPARE LEUKO-REDUCED RBC 2021-06-20 23:54:00 Art Jiménez [facility] BASIC METABOLIC PANEL 2021-06-20 17:40:00 Omaira Manzo [facility] POCT-GLUCOSE METER 2021-06-20 13:33:00 Russo Logan R [facility] POCT-GLUCOSE METER 2021-06-20 06:06:00 Logan Russo [facility] SARS-COV2/RT-PCR ([facility] & 2021-06-20 01:20:00 Davion [facility] REF LABS) [facility] BLOOD GAS, ARTERIAL 2021-06-20 01:20:00 MaryAbel [facility] BASIC METABOLIC PANEL 2021-06-20 01:19:00 Ahmad [facility] MAGNESIUM 2021-06-20 01:19:00 Ahsarah [facility] PHOSPHORUS 2021-06-20 01:19:00 Roni [facility] CBC (HEMOGRAM ONLY) 2021-06-20 01:19:00 Davion [facility] APTT 2021-06-20 01:19:00 Abel Hernandez [facility] PROTHROMBIN TIME/INR 2021-06-20 01:19:00 Mary [facility] CALCIUM, IONIZED 2021-06-20 01:19:00 Jersey Costello [facility] XR CHEST 1 VIEW PORTABLE 2021-06-20 01:05:00 [facility] PREPARE PLATELETS 2021-06-19 23:55:00 Jameson Kuo [facility] PREPARE RBC 2021-06-19 23:54:00 Logan Russo [facility] MAGNESIUM 2021-06-19 21:32:00 Jersey Costello [facility] PH, ARTERIAL 2021-06-19 21:32:00 Jersey [facility] 2021-06-19 21:32:00 Jersey Costello [facility] BASIC METABOLIC PANEL 2021-06-19 21:32:00 Omaira Manzo [facility] POCT-GLUCOSE METER 2021-06-19 17:55:00 Logan Russo [facility] BLOOD GAS, ARTERIAL 2021-06-19 12:39:00 Mary, Abel [facility] BLOOD GAS, ARTERIAL 2021-06-19 11:13:00 Mary, Abel [facility] POCT-GLUCOSE METER 2021-06-19 08:41:00 RussoLogan [facility] TRANSFUSE LEUKO-REDUCED 2021-06-19 07:45:00 Derick Carver [facility] RED BLOOD CELLS [facility] BASIC METABOLIC PANEL 2021-06-19 02:14:00 Ahmad, [facility] MAGNESIUM 2021-06-19 02:14:00 Ahmad, [facility] PHOSPHORUS 2021-06-19 02:14:00 Ahmad, [facility] CBC (HEMOGRAM ONLY) 2021-06-19 02:14:00 Martinez Ricardo [facility] APTT 2021-06-19 02:14:00 Mary, Abel [facility] PROTHROMBIN TIME/INR 2021-06-19 02:14:00 Mary, Abel [facility] BLOOD GAS, ARTERIAL 2021-06-19 02:14:00 Mary, [facility] OXYGEN SATURATION, 2021-06-19 02:14:[address] [facility] XR CHEST 1 VIEW PORTABLE 2021-06-19 01:52:00 Martinez Ricardo [facility] / BEDSIDE [facility] POCT-GLUCOSE METER 2021-06-18 23:55:00 Russo, Logan Vaca [facility] PREPARE LEUKO-REDUCED RBC 2021-06-18 23:55:00 Shiva Jeter [facility] POCT-GLUCOSE METER 2021-06-18 23:03:00 Russo, Logan Vaca [facility] POCT-GLUCOSE METER 2021-06-18 21:14:00 Russo, Logan Vaca [facility] POCT-GLUCOSE METER 2021-06-18 18:54:00 Russo, Logan Vaca [facility] CBC (HEMOGRAM ONLY) 2021-06-18 18:15:00 Mary, [facility] BASIC METABOLIC PANEL 2021-06-18 18:15:00 Mary, [facility] APTT 2021-06-18 18:15:00 Mary [facility] PROTHROMBIN TIME/INR 2021-06-18 18:15:00 Mary, [facility] LACTIC ACID, ARTERIAL 2021-06-18 18:15:00 Mary, [facility] PHOSPHORUS 2021-06-18 18:15:00 Mary, [facility] MAGNESIUM 2021-06-18 18:15:00 Mary [facility] BLOOD GAS, ARTERIAL 2021-06-18 18:15:00 Mary [facility] OXYGEN SATURATION, 2021-06-18 18:15:00 Mary [facility] RRL CRITICAL LABS 2021-06-18 16:04:00 [facility] (ABG,NA,K,H&H,GLUCOSE) Medical C enter CALCIUM, IONIZED 2021-06-18 16:04:00 [facility] BLOOD GAS, ARTERIAL 2021-06-18 16:04:00 [facility] SODIUM NA-STAT LAB 2021-06-18 16:04:00 Mary [facility] POTASSIUM-STAT LAB 2021-06-18 16:04:00 Mary [facility] GLUCOSE-STAT LAB 2021-06-18 16:04:00 [facility] HGB/HCT (H&H) - STAT LAB 2021-06-18 16:04:00 [facility] PREPARE PLASMA 2021-06-18 15:44:00 Logan Russo [facility] XR CHEST 1 VIEW PORTABLE 2021-06-18 15:33:00 Abel Hernandez [facility] Medical Center OXYGEN SATURATION, 2021-06-18 15:03:[address] [facility] SURGICALLY OBTAINED 2021-06-18 15:01:35 Logan Russo [facility] CULTURE + GRAM STAIN Medical Kwesi ter FUNGUS CULTURE + SMEAR 2021-06-18 15:01:[address] [facility] CULTURE + SMEAR 2021-06-18 15:01:35 Logan Russo [facility] (NON-SPUTUM) [facility] HEMOGLOBIN AND HEMATOCRIT 2021-06-18 14:58:00 Luh Cosby [facility] [facility] CBC W/PLT COUNT & AUTO 2021-06-18 14:58:00 Abel Hernandez [facility] CBC W/PLT COUNT & AUTO 2021-06-18 14:58:00 Abel Hernandez [facility] (CELLAVISION MANUAL DIFF) 2021-06-18 14:58:00 Abel Hernandez [facility] BASIC METABOLIC PANEL 2021-06-18 14:57:00 Abel Hernandez [facility] MAGNESIUM 2021-06-18 14:57:00 Abel Hernandez [facility] CALCIUM, IONIZED 2021-06-18 14:57:00 Abel Hernandez [facility] PROTHROMBIN TIME/INR 2021-06-18 14:57:00 Abel Hernandez [facility] APTT 2021-06-18 14:57:00 Abel Hernandez [facility] PHOSPHORUS 2021-06-18 14:57:00 Abel Hernandez [facility] POTASSIUM 2021-06-18 14:57:00 Abel Hernandez [facility] PREPARE PLATELETS 2021-06-18 14:20:00 Jameson Kuo [facility] PLATELET COUNT 2021-06-18 13:12:54 Asad Santana [facility] POCT-ACT 2021-06-18 13:08:00 Logan Russo [facility] RRL CRITICAL LABS 2021-06-18 13:05:56 [place] [facility] (ABG,NA,K,H&H,GLUCOSE) [facility] enter CALCIUM, IONIZED 2021-06-18 13:05:56 [facility] 2021-06-18 13:05:56 [facility] 2021-06-18 13:05:56 [facility] PROTHROMBIN TIME/INR 2021-06-18 13:05[facility] BLOOD GAS, ARTERIAL 2021-06-18 13:05:56 [place] [facility] SODIUM NA-STAT LAB 2021-06-18 13:05:56 [facility] POT[facility]SIUM-STAT LAB 2021-06-18 13:05:56 [place] [facility] GLUCOSE-STAT LAB 2021-06-18 13:05:56 [facility] HGB/HCT (H&H) - STAT LAB 2021-06-18 13:05:[address] [facility] TRANSFUSE LEUKO-REDUCED 2021-06-18 12:46:00 Max [facility] PLATELETS [facility] TRANSFUSE LEUKO-REDUCED 2021-06-18 12:45:00 Max [facility] PLATELETS [facility] RRL CRITICAL LABS 2021-06-18 12:22:[address] [facility] (ABG,NA,K,H&H,GLUCOSE) Medical C enter BLOOD GAS, ARTERIAL 2021-06-18 12:22:57 Logan Russo [facility] SODIUM NA-STAT LAB 2021-06-18 12:22:57 Logan Russo [facility] POTASSIUM-STAT LAB 2021-06-18 12:22:57 Logan Russo [facility] GLUCOSE-STAT LAB 2021-06-18 12:22:57 Logan Russo [facility] HGB/HCT (H&H) - STAT LAB 2021-06-18 12:22:57 Logan Russo [facility] POCT-ACT 2021-06-18 12:20:00 Logan Russo [facility] RRL CRITICAL LABS 2021-06-18 12:17:57 Logan Russo [facility] (ABG,NA,K,H&H,GLUCOSE) [facility] enter BLOOD GAS, ARTERIAL 2021-06-18 12:17:57 Logan Russo [facility] SODIUM NA-STAT LAB 2021-06-18 12:17:57 Logan Russo [facility] POTASSIUM-STAT LAB 2021-06-18 12:17:57 Logan Russo [facility] GLUCOSE-STAT LAB 2021-06-18 12:17:57 Logan Russo [facility] HGB/HCT (H&H) - STAT LAB 2021-06-18 12:17:57 Logan Russo [facility] MISCELLANEOUS LAB ORDER 2021-06-18 11:59:38 Max [facility] PLATELET COUNT 2021-06-18 11:59:[address] [facility] FIBRINOGEN 2021-06-18 11:59:[address] [facility] PROTHROMBIN TIME/INR 2021-06-18 11:59:38 Asad Santana [facility] APTT 2021-06-18 11:59:[address] [facility] POCT-ACT 2021-06-18 11:43:00 Logan Russo [facility] TISSUE EXAM 2021-06-18 11:41:00 Logan Russo [facility] RRL CRITICAL LABS 2021-06-18 11:40:27 Russo, Logan V[facility] (ABG,NA,K,H&H,GLUCOSE) Medical C enter BLOOD GAS, ARTERIAL 2021-06-18 11:40:27 Russo, [facility] SODIUM NA-STAT LAB 2021-06-18 11:40:27 Russo, [facility] POTASSIUM-STAT LAB 2021-06-18 11:40:27 Russo, [facility] GLUCOSE-STAT LAB 2021-06-18 11:40:27 Russo, [facility] HGB/HCT (H&H) - STAT LAB 2021-06-18 11:40:27 Russo, [facility] POCT-ACT 2021-06-18 11:15:00 Russo, [facility] RRL CRITICAL LABS 2021-06-18 11:13:46 Russo, Logan [facility] es (ABG,NA,K,H&H,GLUCOSE) Medical C enter BLOOD GAS, ARTERIAL 2021-06-18 11:13:46 Russo, [facility] SODIUM NA-STAT LAB 2021-06-18 11:13:46 Russo, [facility] POTASSIUM-STAT LAB 2021-06-18 11:13:46 Russo, [facility] GLUCOSE-STAT LAB 2021-06-18 11:13:46 Russo, [facility] HGB/HCT (H&H) - STAT LAB 2021-06-18 11:13:46 Russo, [facility] POCT-ACT 2021-06-18 10:47:00 Russo, [facility] RRL CRITICAL LABS 2021-06-18 10:45:20 [facility], [facility] (ABG,NA,K,H&H,GLUCOSE) Medical C enter BLOOD GAS, ARTERIAL 2021-06-18 10:45:20 Russo, [facility] SODIUM NA-STAT LAB 2021-06-18 10:45:20 Russo, Logan Vaca [facility] POTASSIUM-STAT LAB 2021-06-18 10:45:20 Russo, [facility] GLUCOSE-STAT LAB 2021-06-18 10:45:20 Russo, Logan Vaca [facility] HGB/HCT (H&H) - STAT LAB 2021-06-18 10:45:20 Russo, Logan Vaca [facility] POCT-ACT 2021-06-18 10:14:00 Russo, Logan Vaca [facility] ANESTHESIA NIMCO 2021-06-18 10:03:35 Lydia [facility] TRANSFUSE LEUKO-REDUCED 2021-06-18 09:26:00 Asad Santana [facility] RED BLOOD CELLS [facility] RRL CRITICAL LABS 2021-06-18 08:54:20 Max [facility] (ABG,NA,K,H&H,GLUCOSE) [facility] enter CALCIUM, IONIZED 2021-06-18 08:54:[address] [facility] BLOOD GAS, ARTERIAL 2021-06-18 08:54:20 [place] [facility] SODIUM NA-STAT LAB 2021-06-18 08:54:20 [facility] POTASSIUM-STAT LAB 2021-06-18 08:54:20 Max [facility] GLUCOSE-STAT LAB 2021-06-18 08:54:[address] [facility] HGB/HCT (H&H) - STAT LAB 2021-06-18 08:54:[address] [facility] ECHOCARDIOGRAM, 2021-06-18 07:38:00 Russo, Logan [facility] TRANSESOPHAGEAL [facility] REPAIR, MITRAL VALVE 2021-06-18 07:38:00 Russo, Logan Vaca [facility] REPAIR, TRICUSPID VALVE 2021-06-18 07:38:00 Russo, Logan Vaca [facility] STERNOTOMY 2021-06-18 07:38:00 Logan Russo [facility] NIMCO 2021-06-18 07:38:00 Logan Russo [facility] CBC W/PLT COUNT & AUTO 2021-06-18 05:37:00 Ahmapamela [facility] BASIC METABOLIC PANEL 2021-06-18 05:37:00 Ahmad [facility] MAGNESIUM 2021-06-18 05:37:00 Ahmad [facility] PHOSPHORUS 2021-06-18 05:37:00 [facility] W/PLT COUNT & AUTO 2021-06-18 05:37:00 [facility] TRANSFUSE LEUKO-REDUCED 2021-06-17 23:31:00 Shiva Jeter [facility] RED BLOOD CELLS [facility] POCT-GLUCOSE METER 2021-06-17 21:28:00 [facility] HEMOGLOBIN AND HEMATOCRIT 2021-06-17 21:16:[facility] ABDOMEN/PELVIS WITHOUT 2021-06-17 17:07:00 [facility] IV CONTRAST [facility] XR ABDOMEN/KUB 1 VIEW 2021-06-17 16:15:00 [facility] MAGNESIUM 2021-06-17 15:48:00 [facility] COMPREHENSIVE METABOLIC 2021-06-17 15:48:00 [facility] PANEL [facility] HEMOGLOBIN A1C 2021-06-17 15:48:00 [facility] CBC W/PLT COUNT & AUTO 2021-06-17 15:48:00 [facility] DIFFERENTIAL [facility] PROTHROMBIN TIME/INR 2021-06-17 15:48:00 [facility] APTT 2021-06-17 15:48:00 [facility] TYPE AND SCREEN, 2021-06-17 15:48:00 [facility] AUTOMATED [facility] CBC W/PLT COUNT & AUTO 2021-06-17 15:48:00 [facility] DIFFERENTIAL [facility] ECG 12-LEAD 2021-06-17 15:31:19 [facility] HEMODIALYSIS INPATIENT 2021-06-17 08:22:41 Wilner Aponte [facility] CBC W/PLT COUNT & AUTO 2021-06-17 04:15[facility] PANEL 2021-06-17 04:15:00 Ahakild [facility] MAGNESIUM 2021-06-17 04:15:00 Ahmapamela [facility] PHOSPHORUS 2021-06-17 04:15:00 Ahmad [facility] CBC W/PLT COUNT & AUTO 2021-06-17 04:15:00 Roni [facility] POCT-GLUCOSE METER 2021-06-16 23:59:00 Harjeet [facility] POCT-GLUCOSE METER 2021-06-16 18:00:00 Harjeet [facility] [place] CEREBRAL 4 VESSEL 2021-06-16 12:55:00 Eloy Portillo [facility] ANGIOGRAM [facility] PACEMAKER CHECK WITH 2021-06-16 10:00:06 Rosa Maria [facility] REPROGRAMMING [facility] MR BRAIN WITHOUT IV 2021-06-16 09:57:00 Ladarius Jc [facility] PACEMAKER CHECK WITH 2021-06-16 09:31:48 Rosa Maria [facility] REPROGRAMMING [facility] POCT-GLUCOSE METER 2021-06-16 07:18:00 Harjeet [facility] CBC W/PLT COUNT & AUTO 2021-06-16 04:21:00 Ahsarah, [facility] BASIC METABOLIC PANEL 2021-06-16 04:21:00 Ahmad, [facility] MAGNESIUM 2021-06-16 04:21:00 Ahmad, [facility] PHOSPHORUS 2021-06-16 04:21:00 Ahmad, [facility] CBC W/PLT COUNT & AUTO 2021-06-16 04:21:00 Ahsarah, [facility] POCT-GLUCOSE METER 2021-06-15 21:28:00 [facility] WITH 2021-06-15 18:20:00 [facility]ALU[facility] Cent[facility] r WITHOUT FFR HEPATIC FUNCTION PANEL 2021-06-15 15:18:00 [facility]H, MANUAL 2021-06-15 05:54:00 Kelli Merrill [facility] PT/APTT 2021-06-15 04:16:00 Ahsarah, [facility] CBC W/PLT COUNT & AUTO 2021-06-15 04:16:00 sarah, [facility] BASIC METABOLIC PANEL 2021-06-15 04:16:00 Ahsarah, [facility] MAGNESIUM 2021-06-15 04:16:00 Ahakild, [facility] PHOSPHORUS 2021-06-15 04:16:00 Ahsarah, [facility] TYPE AND SCREEN, 2021-06-15 04:16:00 Ahsarah, [facility] CBC W/PLT COUNT & AUTO 2021-06-15 04:16:00 Ahsarah, [facility] POCT-GLUCOSE METER 2021-06-14 11:09:00 Ladarius Jc [facility] Ce nter POCT-GLUCOSE METER 2021-06-14 07:31:00 Ladarius Jc [facility] Ce nter EEG 12-26 HR CONTINUOUS 2021-06-14 06:25:00 Count [facility]cludes [facility] M[facility] MONITORING WITH VIDEO [facility] CBC W/PLT COUNT & AUTO 2021-06-14 04:05:00 Ahsarah [facility] BASIC METABOLIC PANEL 2021-06-14 04:05:00 Ahmad [facility] MAGNESIUM 2021-06-14 04:05:00 Ahmad [facility] PHOSPHORUS 2021-06-14 04:05:00 Ahmad [facility] CBC W/PLT COUNT & AUTO 2021-06-14 04:05:00 Angel Saenz [facility] POCT-GLUCOSE METER 2021-06-13 17:10:00 [facility] nter POCT-GLUCOSE METER 2021-06-13 12:44:00 [facility] Ce nter HEPARIN ANTIBODY 2021-06-13 11:25:00 Kavitha Almodovar [facility] EEG 12-26 HR CONTINUOUS 2021-06-13 11:06:00 Pamela Orta [facility] MONITORING WITH VIDEO Medical Ce nter IRON, TIBC, % SAT. 2021-06-13 08:28:00 [facility] Medical Cent[facility] r FERRITIN 2021-06-13 08:28:00 Claudette Salmeron [facility] POCT-GLUCOSE METER 2021-06-13 08:27:00 Mary Kate Gracia [facility] CBC W/PLT COUNT & AUTO 2021-06-13 03:36:00 Roni [facility] BASIC METABOLIC PANEL 2021-06-13 03:36:00 Ahsarah [facility] MAGNESIUM 2021-06-13 03:36:00 Ahmad [facility] PHOSPHORUS 2021-06-13 03:36:00 Ahmad, Ali [facility] CBC W/PLT COUNT & AUTO 2021-06-13 03:36:00 Dany Angel [facility] POCT-GLUCOSE METER 2021-06-13 01:48:00 Samia Breecata Emmett [facility] HEMODIALYSIS INPATIENT 2021-06-12 23:02:53 Harshil Loving [facility] POCT-GLUCOSE METER 2021-06-12 18:54:00 Samia Breecata SteeleEmmett [facility] SARS-COV2/RT-PCR ([facility] & 2021-06-12 17:07:00 Martinez Ricardo [facility] REF LABS) [facility] EEG AWAKE AND DROWSY 2021-06-12 12:20:00 Kavitha Almodovar [facility] CT BRAIN WITHOUT IV 2021-06-12 08:15:00 Angel Saenz [facility] POCT-GLUCOSE METER 2021-06-12 07:20:00 Samia Breecata SteeleEmmett [facility] CTA BRAIN 2021-06-12 01:53:00 [facility] CAROT[facility] 2021-06-12 01:53:[address] [facility]RAIN WITHOUT IV 2021-06-12 01:31:00 Janina [facility] CBC W/PLT COUNT & AUTO 2021-06-12 01:07:00 Samia Tamayo [facility] HIGH SENSITIVITY TROPONIN 2021-06-12 01:07:00 Mary Kate Gracia I [facility] LACTIC ACID, VENOUS 2021-06-12 01:07:00 Mary Kate Gracia [facility] PROTHROMBIN TIME/INR 2021-06-12 01:07:00 Mary Kate Gracia [facility] CBC W/PLT COUNT & AUTO 2021-06-12 01:07:00 Anshul Acharya [facility] BASIC METABOLIC PANEL 2021-06-12 00:49:00 Roni [facility] MAGNESIUM 2021-06-12 00:49:00 AhSamia smith [facility] PHOSPHORUS 2021-06-12 00:49:00 Ahmad, [facility] ECG 12-LEAD 2021-06-12 00:43:57 Unknown, Hl7 [facility] ECG 12-LEAD 2021-06-12 00:43:57 Unknown, 7 [facility] ECG 12-LEAD 2021-06-12 00:40:07 Unknown, 7 [facility] ECG 12-LEAD 2021-06-12 00:39:50 Unknown, [address] ECG 12-LEAD 2021-06-12 00:39:50 Unknown, [address] POCT-GLUCOSE METER 2021-06-12 00:35:00 Samia [facility] Emmett [facility] POCT-GLUCOSE METER 2021-06-11 20:12:00 Samia [facility] POCT-GLUCOSE METER 2021-06-11 16:12:00 Samia [facility] BLOOD CULTURE 2021-06-11 11:47:[address] [facility] POCT-GLUCOSE METER 2021-06-11 11:17:00 Samia [facility] Emmett [facility] PACEMAKER CHECK 2021-06-11 10:59:25 Hernandez James [facility] POCT-GLUCOSE METER 2021-06-11 06:33:00 Samia [facility] Christine [facility] BLOOD CULTURE 2021-06-11 04:03:00 Jessica John [facility] CBC W/PLT COUNT & AUTO 2021-06-11 04:03:00 Samia Tamayo [facility] BASIC METABOLIC PANEL 2021-06-11 04:03:00 Roni [facility] MAGNESIUM 2021-06-11 04:03:00 Ahmapamela Samia [facility] PHOSPHORUS 2021-06-11 04:03:00 AhSamia smith [facility] CBC W/PLT COUNT & AUTO 2021-06-11 04:03:00 Patrizia Anshul Tyrel [facility] POCT-BLOOD GASES, VENOUS 2021-06-10 22:25:00 Samia [facility] POCT-SODIUM 2021-06-10 22:25:00 Samia [facility] POCT-POTASSIUM 2021-06-10 22:25:00 [facility] POCT-HEMOGLOBIN 2021-06-10 22:25:00 [facility] POCT-HEMATOCRIT 2021-06-10 22:25:00 [facility] POCT-GLUCOSE 2021-06-10 22:25:00 Samia [facility] CBC W/PLT COUNT & AUTO 2021-06-10 22:23:00 Jessica John [facility] CBC W/PLT COUNT & AUTO 2021-06-10 22:23:00 Jessica John [facility] XR CHEST 1 VIEW PORTABLE 2021-06-10 22:14:00 Jessica John [facility] / BEDSIDE [facility] BLOOD CULTURE 2021-06-10 22:08:00 Jessica John [facility] LACTIC ACID, VENOUS 2021-06-10 22:07:00 Jessica John [facility] POCT-GLUCOSE METER 2021-06-10 21:20:00 [facility] Emmett [facility] HEMODIALYSIS INPATIENT 2021-06-10 17:49:00 Wilner Aponte [facility] POCT-GLUCOSE METER 2021-06-10 16:22:00 Samia [facility] POCT-GLUCOSE METER 2021-06-10 11:29:00 Ali, Hiba Emmett [facility] POCT-GLUCOSE METER 2021-06-10 07:27:00 Ali [facility] CBC W/PLT COUNT & AUTO 2021-06-10 04:36:00 Ahmad [facility] BASIC METABOLIC PANEL 2021-06-10 04:36:00 Ahmad, [facility] MAGNESIUM 2021-06-10 04:36:00 Ahmad, [facility] PHOSPHORUS 2021-06-10 04:36:00 Ahmad, [facility] CBC W/PLT COUNT & AUTO 2021-06-10 04:36:00 Anshul Acharya [facility] POCT-GLUCOSE METER 2021-06-09 21:22:00 Haj-Ismail [facility] POCT-GLUCOSE METER 2021-06-09 16:16:00 Haj-Isherbert [facility] 2D ECHO W/ DOPPLER 2021-06-09 12:21:49 Rony Shin [facility] (CW/PW/COLOR) [facility] TRANSESOPHAGEAL ECHO 2021-06-09 09:04:02 Jocelyne De La Cruz [facility] POCT-GLUCOSE METER 2021-06-09 06:11:00 Haj-Ismarobert, [facility] CBC W/PLT COUNT & AUTO 2021-06-09 03:34:00 Ahmapamela [facility] BASIC METABOLIC PANEL 2021-06-09 03:34:00 Ahmad [facility] MAGNESIUM 2021-06-09 03:34:00 Ahmad, [facility] PHOSPHORUS 2021-06-09 03:34:00 Ahmad, [facility] CBC W/PLT COUNT & AUTO 2021-06-09 03:34:00 Anshul Acharya [facility] POCT-GLUCOSE METER 2021-06-08 21:03:00 Haj-Ismail [facility] HEMODIALYSIS INPATIENT 2021-06-08 15:21:58 Wilner Aponte [facility] COLOR-FLOW MAPPING 2021-06-08 13:42:[address] [facility] CONT WAVE PULSED DOPPLER 2021-06-08 13:42:[address] [facility] PTH, INTACT 2021-06-08 10:29:00 Jersey [facility] HE[facility] B SURFACE 2021-06-08 10:29:00 Real Delgado [facility] HEPATITIS PANEL, ACUTE 2021-06-08 10:29:00 Nathen-Kanwal Frost [facility] POCT-GLUCOSE METER 2021-06-08 06:59:00 Jameson Kuo [facility] CBC W/PLT COUNT & AUTO 2021-06-08 05:00:00 [facility] BASIC METABOLIC PANEL 2021-06-08 05:00:00 sarah [facility] MAGNESIUM 2021-06-08 05:00:00 [facility] PHOSPHORUS 2021-06-08 05:00:00 [facility] PROTHROMBIN TIME/INR 2021-06-08 05:00:00 Anshul Acharya [facility] VITAMIN B12 2021-06-08 05:00:00 Anshul Acharya [facility] FERRITIN 2021-06-08 05:00:00 Jersey [facility] IRON, TIBC, % SAT. 2021-06-08 05:00:00 Jersey Pravin [facility] (WITHOUT FERRITIN) [facility] D, 25-HYDROXY 2021-06-08 05:00:00 Jersey Costello [facility] CBC W/PLT COUNT & AUTO 2021-06-08 05:00:00 Anshul Acharya [facility] US ABDOMEN LIMITED 2021-06-08 04:51:00 Anshul Acharya [facility] SARS-COV2/RT-PCR ([facility] & 2021-06-07 23:43:00 Angel Saenz [facility] REF LABS) [facility] POCT-GLUCOSE METER 2021-06-07 23:11:00 Jameson Kuo [facility] ECG 12-LEAD 2021-06-07 23:06:38 Unknown, Hl7 [facility] ECG 12-LEAD 2021-06-07 23:06:38 Unknown, Hl7 [facility] BLOOD CULTURE 2021-06-07 21:48:00 Anshul Acharya [facility] BLOOD CULTURE 2021-06-07 21:41:00 Anshul Acharya [facility] CBC W/PLT COUNT & AUTO 2021-06-07 21:41:00 Anshul Acharya [facility] COMPREHENSIVE METABOLIC 2021-06-07 21:41:00 Anshul Acharya [facility] VANCOMYCIN LEVEL, RANDOM 2021-06-07 21:41:00 Anshul Acharya [facility] CBC W/PLT COUNT & AUTO 2021-06-07 21:41:00 Anshul Acharya [facility] XR CHEST 1 VIEW PORTABLE 2021-06-07 19:59:00 Anshul Acharya [facility] / BEDSIDE [facility] VASCULAR DIAGRAM -SCAN 2021-06-07 00:00:00 Provider, Judah [facility] CARDIAC CATH REPORT - 2021-06-07 00:00:00 Provider, Judah [facility] ARRYTHMIA IMPLANT REPORT 2021-06-07 00:00:00 Provider, Judah Sarah [facility] POCT GLUCOSE (AUTOMATED) 2021-05-22 23:19:00 Neil Thomas [facility] POCT GLUCOSE (AUTOMATED) 2021-05-22 17:36:00 Neil Thomas [facility] POCT GLUCOSE (AUTOMATED) 2021-05-22 13:43:00 Niel [facility] BASIC METABOLIC PANEL 2021-05-22 09:37:00 José Miguel Horn [facility] (NA, K, CL, CO2, GLUCOSE, Medica l Branch BUN, CREATININE, CA) CBC WITH DIFF 2021-05-22 09:37:00 José Miguel Horn [facility] GLUCOSE 2021-05-21 23:41:00 Ricki [facility] PROTEIN TOTAL 2021-05-21 23:41:00 Ricki [facility] LACTATE DEHYDROGENASE 2021-05-21 23:41:00 Candido Robison [facility] TROPONIN I 2021-05-21 23:41:00 Tameka Mcdaniels [facility] N-TERMINAL PRO-BNP 2021-05-21 23:41:00 José Miguel Horn [facility] POCT GLUCOSE (AUTOMATED) 2021-05-21 23:14:00 Neil Thomas [facility] POCT GLUCOSE (AUTOMATED) 2021-05-21 16:58:00 Neil Thomas [facility] POCT GLUCOSE (AUTOMATED) 2021-05-21 13:47:00 Neil Thomas [facility] XR CHEST 1 VW 2021-05-21 13:06:23 Gt [facility] VITAMIN B12, LEVEL 2021-05-21 12:51:00 Taina Del Real [facility] FOLATE 2021-05-21 12:51:00 Gt becky [facility] TROPONIN I 2021-05-21 12:51:00 Gt [facility] IRON PANEL 2021-05-21 12:51:00 Gt [facility] VITAMIN D, 25-OH 2021-05-21 12:51:00 Gt [facility] FERRITIN SERUM 2021-05-21 09:32:00 Gt becky [facility] TROPONIN I 2021-05-21 09:32:00 Gt [facility] HEPATIC FUNCTION PANEL 2021-05-21 09:32:00 Gt, [facility] ([id number]) (ALB,T.PRO,BILI Medical Branch T,BU/BC,ALT,AST,ALK PHOS) BASIC METABOLIC PANEL 2021-05-21 09:32:00 José Miguel Horn [facility] (NA, K, CL, CO2, GLUCOSE, Medica l Branch BUN, CREATININE, CA) DIFF CONSULT 2021-05-21 09:32:00 tG [facility] CBC WITH DIFF 2021-05-21 09:32:00 Kory [facility] N-TERMINAL PRO-BNP 2021-05-21 09:32:00 [facility]SE (AUTOMATED) 2021-05-21 02:22:00 Neil Thomas [facility] XR CHEST 1 VW 2021-05-20 22:21:01 [facility] PO[facility]SE (AUTOMATED) 2021-05-20 22:14:00 Neil Thomas [facility] PH, BODY FLUID 2021-05-20 22:04:00 Ricki [facility] T.PROTEIN BODY FLUID 2021-05-20 22:04:00 Candido Robison [facility] BODY FLUID DIRECT COUNT 2021-05-20 22:04:00 Nemesio [facility] CYTO PLEURAL FLUID 2021-05-20 22:04:00 Candido Robison [facility] LDH TOTAL BODY FLUID 2021-05-20 22:04:00 Holly Redding [facility] AFB CULTURE 2021-05-20 21:50:00 Ricki [facility] BODY FLUID 2021-05-20 21:50:00 [facility](AEROBIC/ANAEROBIC Medica l Branch ) XR CHEST 1 VW 2021-05-20 19:13:56 Ricki [facility] POCT GLUCOSE (AUTOMATED) 2021-05-20 16:59:00 Neil Thomas [facility] POCT GLUCOSE (AUTOMATED) 2021-05-20 13:25:00 Neil Thomas [facility] LACTATE DEHYDROGENASE 2021-05-20 09:50:00 [facility]ABOLIC PANEL 2021-05-20 09:50:00 Holly Redding [facility] (NA, K, CL, CO2, GLUCOSE, Medica l Branch BUN, CREATININE, CA) PROTHROMBIN TIME / INR 2021-05-20 09:50:00 [facility] N-TERMINAL PRO-BNP 2021-05-20 09:50:00 Tameka Mcdaniels [facility] POCT GLUCOSE (AUTOMATED) 2021-05-20 01:35:00 Neil Thomas Uni [facility] POCT GLUCOSE (AUTOMATED) 2021-05-19 23:08:00 Neil Thomas [facility] POCT GLUCOSE (AUTOMATED) 2021-05-19 17:39:00 Neil Thomas [facility] POCT GLUCOSE (AUTOMATED) 2021-05-19 14:04:00 Neil Thomas [facility] BASIC METABOLIC PANEL 2021-05-19 11:24:00 [facility] (NA, K, CL, CO2, GLUCOSE, Medica l Branch BUN, CREATININE, CA) CBC WITH DIFF 2021-05-19 11:24:00 [facility] N-TERMINAL PRO-BNP 2021-05-19 11:24:00 Tameka Mcdaniels [facility] HEPATITIS B SURFACE 2021-05-19 03:18:00 Samantha [facility] ANTIBODY [facility] HEPATITIS B SURFACE 2021-05-19 03:18:00 Samantha [facility] ANTIGEN [facility] POCT GLUCOSE (AUTOMATED) 2021-05-19 03:11:00 Neil Thomas Uni [facility] POCT GLUCOSE (AUTOMATED) 2021-05-18 22:43:00 Neil Thomas [facility] POCT GLUCOSE (AUTOMATED) 2021-05-18 17:46:00 [facility]) 2021-05-18 17:04:00 William Neil [facility] BASIC METABOLIC PANEL 2021-05-18 15:05:00 Holly Redding [facility] (NA, K, CL, CO2, GLUCOSE, Medica l Branch BUN, CREATININE, CA) POCT GLUCOSE (AUTOMATED) 2021-05-18 13:20:00 [facility]CLOSURE AND CONSENT, 2021-05-18 06:01:00 Doctor Unassigned, N o [facility] MEDICAL AND SURGICAL Name Medical [facility] PROCEDURES POCT GLUCOSE (AUTOMATED) 2021-05-17 22:51:00 [facility] (AUTOMATED) 2021-05-17 17:51:00 William [facility] TRANSTHORACIC ECHO (TTE) 2021-05-17 15:04:37 William [facility] POCT GLUCOSE (AUTOMATED) 2021-05-17 14:14:00 William [facility] PHOSPHORUS 2021-05-17 10:03:00 [facility] MAGNESIUM 2021-05-17 10:03:00 [facility] BASIC METABOLIC PANEL 2021-05-17 10:03:00 Neil Thomas [facility] (NA, K, CL, CO2, GLUCOSE, Medica l Branch BUN, CREATININE, CA) CBC WITHOUT DIFF 2021-05-17 10:03:00 William [facility] N-TERMINAL PRO-BNP 2021-05-17 10:03:00 Neil Thomas [facility] POCT GLUCOSE (AUTOMATED) 2021-05-16 22:34:00 William [facility] POCT GLUCOSE (AUTOMATED) 2021-05-16 17:41:00 [place], Neil [facility] POCT GLUCOSE (AUTOMATED) 2021-05-16 13:39:00 Neil Thomas [facility] MAGNESIUM 2021-05-16 08:09:00 [facility] 2021-05-16 08:09:00 [facility] MET[facility]OLIC PANEL 2021-05-16 08:09:00 [facility] ([facility], K, CL, CO2, GLUCOSE, Medica l Branch BUN, CREATININE, CA) LIPID PANEL ([id number])(TOTAL 2021-05-16 08:09:00 Neil Thomas [facility] CHOLESTEROL, [facility] TRIGLYCERIDES, HDL) CBC WITHOUT DIFF 2021-05-16 08:09:00 William [facility] GLYCOSYLATED HEMOGLOBIN 2021-05-16 08:09:00 [facility] PHOSPHORUS 2021-05-16 02:06:00 [facility] TROPONIN I 2021-05-16 02:06:00 [facility] POCT GLUCOSE (AUTOMATED) 2021-05-16 02:05:00 Neil Thomas [facility] COVID-19 (ID NOW RAPID 2021-05-15 22:31:00 Dangelo Ibrahim [facility] TESTING) Medical Branch LAB ONLY COVID 2021-05-15 22:31:[address] [facility] INTERPRETATION [facility] XR KNEE <3 VW RIGHT 2021-05-15 22:12:44 Dangelo Ibrahim [facility] [place] CT CHEST PULMONARY 2021-05-15 22:00:00 Dangelo Ibrahim [facility] ANGIOGRAM Medical Branch XR CHEST 1 VW 2021-05-15 20:32:18 Singer [facility] LIPASE 2021-05-15 19:37:00 Singer [facility] MAGNESIUM 2021-05-15 19:37:00 Singer [facility] TROPONIN I 2021-05-15 19:37:00 Singer [facility] THYROID STIMULATING 2021-05-15 19:37:00 Neil Thomas [facility] HORMONE [facility] COMP. METABOLIC PANEL 2021-05-15 19:37:00 Dangelo Ibrahim [facility] ([id number]) Medical Branch CBC WITH DIFF 2021-05-15 19:37:00 Singer [facility] GLYCOSYLATED HEMOGLOBIN 2021-05-15 19:37:00 William [facility] (A1C) [facility] PROTHROMBIN TIME / INR 2021-05-15 19:37:00 Singer Dangelo [facility] D-DIMER 2021-05-15 19:37:00 Singer [facility] N-TERMINAL PRO-BNP 2021-05-15 19:37:00 Dangelo Ibrahim [facility] HB ECG ROUTINE & RHYTHM 2021-05-15 19:13:17 Dangelo Ibrahim [facility] NOTICE OF PRIVACY 2021-05-15 18:55:45 Doctor Unassigned, No [facility] PRACTICES Name [facility] CONSENT/REFUSAL FOR 2021-05-15 18:55:20 Doctor Unassigned, [facility] HOSPITAL ADMISSION 2021-05-15 06:01:00 Doctor Unassigned, No Uni versity of [facility] Chest Single View 2019-02-17 00:00:00 [facility] sue Influenza Type A Antigen 2019-02-17 00:00:00 [facility] oridavid Solomon Screen Influenza Type B Antigen 2019-02-17 00:00:00 [facility] oridavid Solomon Screen Culture & Sensitivity 2019-01-25 00:00:00 Talisha Suarez Chest Pa And Lat (2 2019-01-25 00:00:00 [facility] Anaerobic Blood Culture 2018-10-09 00:00:00 Dickson Solomon Aerobic Blood Culture 2018-10-09 00:00:00 Talisha Suarez Gram Stain 2018-10-09 00:00:00 [facility] Anaerobic Culture 2018-10-09 00:00:00 [facility] sue Plan of Care Planned Activity Planned Date Details Comments Source Future Scheduled 2031-07-[address] [facility] 00:[facility]:00 malignant neoplasm of Medica [facility] Center colon (procedure) [code = 105065167] Future Scheduled 2031-07-[address] [facility] Test 00:00:00 [facility] colon (procedure) [code = 652812381] Future Scheduled 2031-07-[address] [facility] Test 00:00:00 [facility] colon (procedure) [code = 115140503] Future Scheduled 2031-07-[address] [facility] Test 00:00:00 malignant [facility]oplasm [facility] colon (procedure) [code = 323832385] Future Scheduled 2031-07-[address] [facility] Test 00:00:00 [facility] colon (procedure) [code = 305024904] Future Scheduled 2031-07-[address] [facility] Test 00:00:00 malignant [facility] colon (procedure) [code = 373659367] Future Scheduled 2031-07-[address] [facility] Test 00:00:00 malignant [facility] colon (procedure) [code = 275669530] Future Scheduled 2031-07-[address] [facility] 00:00:00 malignant [facility]oplasm [facility] colon (procedure) [code = 484128869] Future Scheduled 2031-07-[address] [facility] 00:00:00 malignant [facility]oplasm [facility] colon (procedure) [code = 487841508] Future Scheduled 2031-07-[address] [facility] 00:00:00 malignant [facility]oplasm [facility] colon (procedure) [code = 339538425] Future Scheduled 2031-07-[address] [facility] 00:00:00 malignant [facility]oplasm [facility] colon (procedure) [code = 904977563] Future Scheduled 2031-07-[address] [facility] 00:00:00 malignant neoplasm of [facility] Center colon (procedure) [code = 796590523] Future Scheduled 2031-07-[address] [facility] 00:00:00 malignant [facility]oplasm of [facility] Center colon (procedure) [code = 769010995] Future Scheduled 2031-07-[address] [facility] 00:00:00 malignant neoplasm [facility] Center colon (procedure) [code = 355908025] Future Scheduled 2031-07-[address] [facility] 00:00:00 malignant neoplasm of [facility] Center colon (procedure) [code = 352455702] Future Scheduled 2031-07-[address] [facility] 00:00:00 malignant neoplasm of [facility] Center colon (procedure) [code = 256902546] Future Scheduled 2031-07-[address] [facility] 00:00:00 malignant neoplasm of [facility] Center colon (procedure) [code = 649594130] Future Scheduled 2031-07-[address] [facility] 00:00:00 malignant neoplasm of [facility] colon (procedure) [code = 135458639] Future Scheduled 2031-07-[address] [facility] 00:00:00 malignant neoplasm of [facility] Center colon (procedure) [code = 258584883] Future Scheduled 2031-07-[address] [facility] 00:00:00 malignant neoplasm of [facility] Center colon (procedure) [code = 636657012] Future Scheduled 2031-07-[address] [facility] 00:00:00 malignant neoplasm of [facility] Center colon (procedure) [code = 639762242] Future Scheduled 2031-07-[address] [facility] 00:00:00 malignant neoplasm of [facility]ica [facility] Center colon (procedure) [code = 105936659] Future Scheduled 2031-07-[address] [facility] 00:00:00 malignant neoplasm of [facility] Center colon (procedure) [code = 040977795] Future Scheduled 2031-07-[address] [facility] 00:00:00 malignant neoplasm of [facility] Center colon (procedure) [code = 256173067] Future Scheduled 2031-07-[address] [facility] 00:00:00 malignant neoplasm of [facility] Center colon (procedure) [code = 142262335] Future Scheduled 2031-07-[address] [facility] 00:00:00 malignant neoplasm of [facility] Center colon (procedure) [code = 426662951] Future Scheduled 2023-04-[address] [facility] 00:00:00 malignant [facility] cervix (procedure) [code = 937735240] Future Scheduled 2023-04-[address] [facility] 00:00:00 malignant neoplasm of [facility] Center cervix (procedure) [code = 857940860] Future Scheduled 2023-04-[address] [facility] 00:00:00 malignant [facility]oplasm [facility] cervix (procedure) [code = 815583144] Future Scheduled 2023-04-[address] [facility] 00:00:00 malignant [facility]oplasm of [facility] Center cervix (procedure) [code = 532500059] Future Scheduled 2023-04-[address] [facility] 00:00:00 malignant neoplasm of [facility]ica [facility] Center cervix (procedure) [code = 611503835] Future Scheduled 2023-04-[address] [facility] 00:00:00 malignant neoplasm of [facility]ica [facility] Center cervix (procedure) [code = 581466492] Future Scheduled 2023-04-[address] [facility] 00:00:00 malignant neoplasm of [facility] Center cervix (procedure) [code = 171562958] Future Scheduled 2023-04-[address] [facility] 00:00:00 malignant neoplasm of [facility]ica [facility] Center cervix (procedure) [code = 156413248] Future Scheduled 2023-04-[address] [facility] 00:00:00 malignant neoplasm of [facility] Center cervix (procedure) [code = 063273148] Future Scheduled 2023-04-[address] [facility] 00:00:00 malignant neoplasm of [facility] Center cervix (procedure) [code = 227288253] Future Scheduled 2023-04-[address] [facility] 00:00:00 malignant neoplasm of [facility] Center cervix (procedure) [code = 073454083] Future Scheduled 2023-04-[address] [facility] 00:00:00 malignant neoplasm of [facility] Center cervix (procedure) [code = 956213226] Future Scheduled 2023-04-[address] [facility] 00:00:00 malignant neoplasm of [facility] Center cervix (procedure) [code = 955797864] Future Scheduled 2023-04-[address] [facility] 00:00:00 malignant neoplasm of [facility]ica [facility] Center cervix (procedure) [code = 359720984] Future Scheduled 2023-04-[address] [facility] 00:00:00 malignant neoplasm of [facility]ica [facility] Center cervix (procedure) [code = 840051331] Future Scheduled 2023-04-[address] [facility] 00:00:00 malignant neoplasm of [facility]ica [facility] Center cervix (procedure) [code = 481952421] Future Scheduled 2023-04-[address] [facility] 00:00:00 malignant neoplasm of [facility]ica [facility] Center cervix (procedure) [code = 294454660] Future Scheduled 2023-04-[address] [facility] 00:00:00 malignant neoplasm of [facility]ica [facility] Center cervix (procedure) [code = 502349959] Future Scheduled 2023-04-[address] [facility] 00:00:00 malignant neoplasm of [facility]ica [facility] Center cervix (procedure) [code = 186135251] Future Scheduled 2023-04-[address] [facility] 00:00:00 malignant neoplasm of [facility]ica [facility] Center cervix (procedure) [code = 744229286] Future Scheduled 2023-04-[address] [facility] 00:00:00 malignant neoplasm of [facility]ica [facility] Center cervix (procedure) [code = 574417968] Future Scheduled 2023-04-[address] [facility] 00:00:00 malignant neoplasm of Medica [facility] Center cervix (procedure) [code = 602264496] Future Scheduled 2022-12-[address] [facility] Test 00:00:00 (Season Ended) [code = Medic al Center INFLUENZA VACCINE (Season Ended)] Future Scheduled 2022-12-[address] [facility] Test 00:00:00 (Season Ended) [code = Medic al Center INFLUENZA VACCINE (Season Ended)] Future Scheduled 2022-10-13 PNEUMOCOCCAL 65+ YRS [facility] Test 00:00:00 (2 - PCV) [code = Medical Ce nter PNEUMOCOCCAL 65+ YRS (2 - PCV)] Future Scheduled 2022-10-[address] [facility] Test 00:00:00 0-64 YRS (2 - PCV) Medical C enter [code = PNEUMOCOCCAL VACCINE 0-64 YRS (2 - PCV)] Future Scheduled 2022-10-[address] [facility] Test 00:00:00 0-64 YRS (2 - PCV) Medical C enter [code = PNEUMOCOCCAL VACCINE 0-64 YRS (2 - PCV)] Future Scheduled 2022-10-[address] [facility] Test 00:00:00 0-64 YRS (2 - PCV) Medical C enter [code = PNEUMOCOCCAL VACCINE 0-64 YRS (2 - PCV)] Future Scheduled 2022-10-[address] [facility] Test 00:00:00 0-64 YRS (2 - PCV) Medical C enter [code = PNEUMOCOCCAL VACCINE 0-64 YRS (2 - PCV)] Future Scheduled 2022-09-09 Screening for [facility] Test 09:34:57 malignant neoplasm of colon (procedure) [code = 100713383] Future Scheduled 2022-09-09 Screening for [facility] Test 09:34:57 malignant neoplasm of colon (procedure) [code = 232136806] Future Scheduled 2022-09-09 COVID-[facility]34:57 [code = COVID-19 VACCINE (#1)] Future Scheduled 2022-09-09 Screening for [facility] Test 09:34:57 malignant neoplasm of cervix (procedure) [code = 619495806] Future Scheduled 2022-09-09 Screening for [facility] Test 09:34:57 malignant neoplasm of colon (procedure) [code = 455166114] Future Scheduled 2022-09-09 SHINGLES VACCINES ([facility] 09[facility]34:57 of 2) [code = SHINGLES VACCINES (1 of 2)] Future Scheduled 2022-09-09 Screening for [facility] Test 09:34:57 malignant neoplasm of colon (procedure) [code = 478958274] Future Scheduled 2022-09-09 Screening [facility] Test 09:34:57 malignant neoplasm of colon (procedure) [code = 628836317] Future Scheduled 2022-09-09 [facility]57 S[facility]EN[facility] [code = BREAST CANCER SCREENING] Future Scheduled 2022-09-09 65+ [facility] 09:34:57 VACCINE (1 - PCV) [code = 65+ PNEUMOCOCCAL VACCINE (1 - PCV)] Future Scheduled 2022-09-09 INFLUENZA VACCINE [facility] Test 09:34:57 [code = INFLUENZA VACCINE] Future Scheduled [address] [facility] [...] (2 of 2 - PPSV23)] Future Scheduled 2022-07-09 COVID-19 VACCINE (#1) [facility] Test 07:31:16 [code = COVID-19 VACCINE (#1)] Future Scheduled 2022-07-09 Screening for [facility] Test 07:31:16 malignant neoplasm of cervix (procedure) [code = 630202572] Future Scheduled 2022-07-09 COLONOSCOPY SCREENING [facility] Test 07:31:16 [code = COLONOSCOPY SCREENING] Future Scheduled 2022-07-09 SHINGLES VACCINES (1 Met [facility] Test 07:31:16 of 2) [code = SHINGLES VACCINES (1 of 2)] Future Scheduled 2022-07-09 BREAST CANCER [facility] Test 07:31:16 SCREENING [code = BREAST CANCER SCREENING] Future Scheduled 2022-07-09 INFLUENZA VACCINE [facility] Test 07:31:16 [code = INFLUENZA VACCINE] Future Scheduled 2022-06-[address] [facility] Medical Center DEPRESSION SCREENING (12+)] Future Scheduled 2022-04-04 FALLS RISK SCREENING [facility] Test 00:00:00 [code = FALLS RISK Medical C enter SCREENING] Future Scheduled 2022-04-[address] [facility] Test 00:00:00 (12+) [code = Medical Center DEPRESSION SCREENING (12+)] Future Scheduled 2022-04-[address] [facility] Test 00:00:00 (12+) [code = Medical Center DEPRESSION SCREENING (12+)] Future Scheduled 2022-04-[address] [facility] Test 00:00:00 (12+) [code = Medical Center DEPRESSION SCREENING (12+)] Future Scheduled 2022-04-[address] [facility] Test 00:00:00 (12+) [code = Medical Center DEPRESSION SCREENING (12+)] Future Scheduled 2022-04-[address] [facility] Test 00:00:00 (12+) [code = Medical Center DEPRESSION SCREENING (12+)] Future Scheduled 2022-03-26 COVID-19 VACCINE (#1) [facility] Test 05:32:52 [code = COVID-19 VACCINE (#1)] Future Scheduled 2022-03-26 Scre[facility] Test 05:32:52 malignant neoplasm of cervix (procedure) [code = 571713021] Future Scheduled 2022-03-26 [facility] 05:32:52 [code = COLONOSCOPY SCREENING] Future Scheduled 2022-03-26 SHINGLES VACCINES (1 Met [facility] Test 05:32:52 of 2) [code = SHINGLES VACCINES (1 of 2)] Future Scheduled 2022-03-26 BREAST CANCER [facility] Test 05:32:52 SCREENING [code = BREAST CANCER SCREENING] Future Scheduled 2022-03-26 INFLUENZA VACCINE [facility] Test 05:32:52 [code = INFLUENZA VACCINE] Future Scheduled 2022-03-26 COVID-19 VACCINE (#1) [facility] Test 05:32:52 [code = COVID-19 VACCINE (#1)] Future Scheduled 2022-03-26 [facility] Test 05:32:52 malignant neoplasm of cervix (procedure) [code = 463402725] Future Scheduled 2022-03-26 COLONOSCOPY SCREENING [facility] Test 05:32:52 [code = COLONOSCOPY SCREENING] Future Scheduled 2022-03-26 SHINGLES VACCINES (1 Met [facility] Test 05:32:52 of 2) [code = SHINGLES VACCINES (1 of 2)] Future Scheduled 2022-03-26 BREAST CANCER [facility] Test 05:32:52 SCREENING [code = BREAST CANCER SCREENING] Future Scheduled 2022-03-26 INFLUENZA VACCINE [facility] Test 05:32:52 [code = INFLUENZA VACCINE] Future Scheduled 2022-03-26 COVID-19 VACCINE (#1) [facility] Test 05:32:52 [code = COVID-19 VACCINE (#1)] Future Scheduled 2022-03-26 [facility] Test 05:32:52 malignant neoplasm of cervix (procedure) [code = 848493345] Future Scheduled 2022-03-26 COLONOSCOPY SCREENING [facility] Test 05:32:52 [code = COLONOSCOPY SCREENING] Future Scheduled 2022-03-26 SHINGLES VACCINES (1 Met [facility] Test 05:32:52 of 2) [code = SHINGLES VACCINES (1 of 2)] Future Scheduled 2022-03-26 BREAST CANCER [facility] Test 05:32:52 SCREENING [code = BREAST CANCER SCREENING] Future Scheduled 2022-03-26 INFLUENZA VACCINE [facility] Test 05:32:52 [code = INFLUENZA VACCINE] Future Scheduled 2022-03-26 COVID-19 VACCINE (#1) [facility] Test 05:32:52 [code = COVID-19 VACCINE (#1)] Future Scheduled 2022-03-26 Screening for [facility] Test 05:32:52 malignant neoplasm of cervix (procedure) [code = 186737728] Future Scheduled 2022-03-26 COLONOSCOPY SCREENING [facility] Test 05:32:52 [code = COLONOSCOPY SCREENING] Future Scheduled 2022-03-26 SHINGLES VACCINES (1 Met [facility] Test 05:32:52 of 2) [code = SHINGLES VACCINES (1 of 2)] Future Scheduled 2022-03-26 BREAST CANCER [facility] Test 05:32:52 SCREENING [code = BREAST CANCER SCREENING] Future Scheduled 2022-03-26 INFLUENZA VACCINE [facility] Test 05:32:52 [code = INFLUENZA VACCINE] Future Scheduled 2022-02-05 HEPATITIS B VACCINES Met [facility] Test 07:30:57 (1 of 3 - 3-dose series) [code = HEPATITIS B VACCINES (1 of 3 - 3-dose series)] Future Scheduled 2022-02-05 COVID-19 VACCINE (#1) [facility] Test 07:30:57 [code = COVID-19 VACCINE (#1)] Future Scheduled 2022-02-05 Screening for [facility] Test 07:30:57 malignant neoplasm of cervix (procedure) [code = 524577430] Future Scheduled 2022-02-05 COLONOSCOPY SCREENING [facility] Test 07:30:57 [code = COLONOSCOPY SCREENING] Future Scheduled 2022-02-05 SHINGLES VACCINES (1 [facility] Test 07:30:57 of 2) [code = SHINGLES VACCINES (1 of 2)] Future Scheduled 2022-02-05 BREAST CANCER [facility] Test 07:30:57 SCREENING [code = BREAST CANCER SCREENING] Future Scheduled 2022-02-05 INFLUENZA VACCINE [facility] Test 07:30:57 [code = INFLUENZA VACCINE] Future Scheduled 2021-12-11 HEPATITIS B VACCINES Met [facility] Test 12:22:17 (1 of 3 - 3-dose series) [code = HEPATITIS B VACCINES (1 of 3 - 3-dose series)] Future Scheduled 2021-12-11 COVID-19 [facility]INE (#[facility] 12:22:17 [code = COVID-19 VACCINE (#1)] Future Scheduled 2021-12-11 Screening for [facility] Test 12:22:17 malignant neoplasm of cervix (procedure) [code = 797746242] Future Scheduled 2021-12-11 COLONOSCOPY SCREENING [facility] Test 12:22:17 [code = COLONOSCOPY SCREENING] Future Scheduled 2021-12-11 SHINGLES VACCINES (1 Met [facility] Test 12:22:17 of 2) [code = SHINGLES VACCINES (1 of 2)] Future Scheduled 2021-12-11 BREAST CANCER [facility] Test 12:22:17 SCREENING [code = BREAST CANCER SCREENING] Future Scheduled 2021-12-11 INFLUENZA VACCINE Method [facility] Test 12:22:17 [code = INFLUENZA VACCINE] Future Scheduled 2021-12-11 HEPATITIS B VACCINES Met [facility] Test 12:22:17 (1 of 3 - 3-dose series) [code = HEPATITIS B VACCINES (1 of 3 - 3-dose series)] Future Scheduled 2021-12-11 COVID-19 VACCINE (#1) [facility] Test 12:22:17 [code = COVID-19 VACCINE (#1)] Future Scheduled 2021-12-11 Screening for [facility] Test 12:22:17 malignant neoplasm of cervix (procedure) [code = 844932525] Future Scheduled 2021-12-11 COLONOSCOPY SCREENING [facility] Test 12:22:17 [code = COLONOSCOPY SCREENING] Future Scheduled 2021-12-11 SHINGLES VACCINES (1 Met [facility] Test 12:22:17 of 2) [code = SHINGLES VACCINES (1 of 2)] Future Scheduled 2021-12-11 BREAST CANCER [facility] Test 12:22:17 SCREENING [code = BREAST CANCER SCREENING] Future Scheduled 2021-12-11 INFLUENZA VACCINE Method [facility] Test 12:22:17 [code = INFLUENZA VACCINE] Future Scheduled 2021-12-11 HEPATITIS B VACCINES Met [facility] Test 12:22:17 (1 of 3 - 3-dose series) [code = HEPATITIS B VACCINES (1 of 3 - 3-dose series)] Future Scheduled 2021-12-11 COVID-19 VACCINE (#1) [facility] Test 12:22:17 [code = COVID-19 VACCINE (#1)] Future Scheduled 2021-12-11 Screening for [facility] Test 12:22:17 malignant neoplasm of cervix (procedure) [code = [id number]] Future Scheduled 2021-12-11 COLONOSCOPY SCREENING [facility] Test 12:22:17 [code = COLONOSCOPY SCREENING] Future Scheduled 2021-12-11 SHINGLES VACCINES (1 Met [facility] Test 12:22:17 of 2) [code = SHINGLES VACCINES (1 of 2)] Future Scheduled 2021-12-11 BREAST CANCER [facility] Test 12:22:17 SCREENING [code = BREAST CANCER SCREENING] Future Scheduled 2021-12-11 INFLUENZA VACCINE Method [facility] Test 12:22:17 [code = INFLUENZA VACCINE] Future Scheduled 2021-12-11 HEPATITIS B VACCINES Met [facility] Test 12:22:17 (1 of 3 - 3-dose series) [code = HEPATITIS B VACCINES (1 of 3 - 3-dose series)] Future Scheduled 2021-12-11 COVID-19 VACCINE (#1) [facility] Test 12:22:17 [code = COVID-19 VACCINE (#1)] Future Scheduled 2021-12-11 Screening for [facility] Test 12:22:17 malignant neoplasm of cervix (procedure) [code = [id number]] Future Scheduled 2021-12-11 COLONOSCOPY SCREENING [facility] Test 12:22:17 [code = COLONOSCOPY SCREENING] Future Scheduled 2021-12-11 SHINGLES VACCINES (1 Met [facility] Test 12:22:17 of 2) [code = SHINGLES VACCINES (1 of 2)] Future Scheduled 2021-12-11 BREAST CANCER [facility] Test 12:22:17 SCREENING [code = BREAST CANCER SCREENING] Future Scheduled 2021-12-11 INFLUENZA VACCINE Method [facility] Test 12:22:17 [code = INFLUENZA [...] Future Scheduled 2021-12-02 HEPATITIS B VACCINES Met [facility] Test 19:59:35 (1 of 3 - 3-dose series) [code = HEPATITIS B VACCINES (1 of 3 - 3-dose series)] Future Scheduled 2021-12-02 COVID-19 VACCINE (#1) [facility] Test 19:59:35 [code = COVID-19 VACCINE (#1)] Future Scheduled 2021-12-02 Screening for [facility] Test 19:59:35 malignant neoplasm of cervix (procedure) [code = [id number]] Future Scheduled 2021-12-02 COLONOSCOPY SCREENING [facility] Test 19:59:35 [code = COLONOSCOPY SCREENING] Future Scheduled 2021-12-02 SHINGLES VACCINES (1 Met [facility] Test 19:59:35 of 2) [code = SHINGLES VACCINES (1 of 2)] Future Scheduled 2021-12-02 BREAST CANCER [facility] Test 19:59:35 SCREENING [code = BREAST CANCER SCREENING] Future Scheduled 2021-12-02 INFLUENZA VACCINE Method [facility] Test 19:59:35 [code = INFLUENZA VACCINE] Future Scheduled 2021-07-08 COVID-19 VACCINE (1) Met [facility] Test 18:18:56 [code = COVID-19 VACCINE (1)] Future Scheduled 2021-07-08 DIABETES: RETINAL EYE Me [facility] Test 18:18:56 EXAM [code = DIABETES: RETINAL EYE EXAM] Future Scheduled 2021-07-08 DIABETIC FOOT EXAM [facility] Test 18:18:56 [code = DIABETIC FOOT EXAM] Future Scheduled 2021-07-08 COLONOSCOPY SCREENING [facility] Test 18:18:56 [code = COLONOSCOPY SCREENING] Future Scheduled 2021-07-08 SHINGLES VACCINES (#1) [facility] Test 18:18:56 [code = SHINGLES VACCINES (#1)] Future Scheduled 2021-07-08 BREAST CANCER [facility] Test 18:18:56 SCREENING [code = BREAST CANCER SCREENING] Future Scheduled 2021-07-08 Screening for [facility] Test 18:18:56 malignant neoplasm of cervix (procedure) [code = [id number]] Future Scheduled 2021-07-08 INFLUENZA VACCINE Method ist [facility] Test 18:18:56 [code = INFLUENZA VACCINE] Future Scheduled 2021-06-26 COVID-19 VACCINE (1) Met [facility] Test 14:10:19 [code = COVID-19 VACCINE (1)] Future Scheduled 2021-06-26 DIABETES: RETINAL EYE [facility] Test 14:10:19 EXAM [code = DIABETES: RETINAL EYE EXAM] Future Scheduled 2021-06-26 DIABETIC FOOT EXAM [facility] Test 14:10:19 [code = DIABETIC FOOT EXAM] Future Scheduled 2021-06-26 COLONOSCOPY SCREENING [facility] Test 14:10:19 [code = COLONOSCOPY SCREENING] Future Scheduled 2021-06-26 SHINGLES VACCINES (#1) [facility] Test 14:10:19 [code = SHINGLES VACCINES (#1)] Future Scheduled 2021-06-26 BREAST CANCER [facility] Test 14:10:19 SCREENING [code = BREAST CANCER SCREENING] Future Scheduled 2021-06-26 Screening for [facility] Test 14:10:19 malignant neoplasm of cervix (procedure) [code = [id number]] Future Scheduled 2021-06-26 INFLUENZA VACCINE Method ist Hospital Test 14:10:19 [code = INFLUENZA VACCINE] Future Scheduled 2021-06-26 COVID-19 VACCINE (1) Met [facility] Test 14:10:19 [code = COVID-19 VACCINE (1)] Future Scheduled 2021-06-26 DIABETES: RETINAL EYE Me [facility] Test 14:10:19 EXAM [code = DIABETES: RETINAL EYE EXAM] Future Scheduled 2021-06-26 DIABETIC FOOT EXAM [facility] Test 14:10:19 [code = DIABETIC FOOT EXAM] Future Scheduled 2021-06-26 COLONOSCOPY SCREENING [facility] Test 14:10:19 [code = COLONOSCOPY SCREENING] Future Scheduled 2021-06-26 SHINGLES VACCINES (#1) [facility] Test 14:10:19 [code = SHINGLES VACCINES (#1)] Future Scheduled 2021-06-26 BREAST CANCER [facility] Test 14:10:19 SCREENING [code = BREAST CANCER SCREENING] Future Scheduled 2021-06-26 Screening for [facility] Test 14:10:19 malignant neoplasm of cervix (procedure) [code = [id number]] Future Scheduled 2021-06-26 INFLUENZA VACCINE Method ist Hospital Test 14:10:19 [code = INFLUENZA VACCINE] Future Scheduled 2021-06-26 COVID-19 VACCINE (1) Met [facility] Test 14:10:19 [code = COVID-19 VACCINE (1)] Future Scheduled 2021-06-26 DIABETES: RETINAL EYE [facility] Test 14:10:19 EXAM [code = DIABETES: RETINAL EYE EXAM] Future Scheduled 2021-06-26 DIABETIC FOOT EXAM [facility] Test 14:10:19 [code = DIABETIC FOOT EXAM] Future Scheduled 2021-06-26 COLONOSCOPY SCREENING [facility] Test 14:10:19 [code = COLONOSCOPY SCREENING] Future Scheduled 2021-06-26 SHINGLES VACCINES (#1) [facility] Test 14:10:19 [code = SHINGLES VACCINES (#1)] Future Scheduled 2021-06-26 BREAST CANCER [facility] Test 14:10:19 SCREENING [code = BREAST CANCER SCREENING] Future Scheduled 2021-06-26 Screening for [facility] Test 14:10:19 malignant neoplasm of cervix (procedure) [code = [id number]] Future Scheduled 2021-06-26 INFLUENZA VACCINE Method ist [facility] Test 14:10:19 [code = INFLUENZA VACCINE] Future Scheduled 2021-06-26 COVID-19 VACCINE (1) Met [facility] Test 14:10:19 [code = COVID-19 VACCINE (1)] Future Scheduled 2021-06-26 DIABETES: RETINAL EYE [facility] Test 14:10:19 EXAM [code = DIABETES: RETINAL EYE EXAM] Future Scheduled 2021-06-26 DIABETIC FOOT EXAM [facility] Test 14:10:19 [code = DIABETIC FOOT EXAM] Future Scheduled 2021-06-26 COLONOSCOPY SCREENING [facility] Test 14:10:19 [code = COLONOSCOPY SCREENING] Future Scheduled 2021-06-26 SHINGLES VACCINES (#1) [facility] Test 14:10:19 [code = SHINGLES VACCINES (#1)] Future Scheduled 2021-06-26 BREAST CANCER [facility] Test 14:10:19 SCREENING [code = BREAST CANCER SCREENING] Future Scheduled 2021-06-26 Screening for [facility] Test 14:10:19 malignant neoplasm of cervix (procedure) [code = [id number]] Future Scheduled 2021-06-26 INFLUENZA VACCINE Method ist Hospital Test 14:10:19 [code = INFLUENZA VACCINE] Future Scheduled 2021-06-26 COVID-19 VACCINE (1) Met [facility] Test 14:10:19 [code = COVID-19 VACCINE (1)] Future Scheduled 2021-06-26 DIABETES: RETINAL EYE [facility] Test 14:10:19 EXAM [code = DIABETES: RETINAL EYE EXAM] Future Scheduled 2021-06-26 DIABETIC FOOT EXAM [facility] Test 14:10:19 [code = DIABETIC FOOT EXAM] Future Scheduled 2021-06-26 COLONOSCOPY SCREENING [facility] Test 14:10:19 [code = COLONOSCOPY SCREENING] Future Scheduled 2021-06-26 SHINGLES VACCINES (#1) [facility] Test 14:10:19 [code = SHINGLES VACCINES (#1)] Future Scheduled 2021-06-26 BREAST CANCER [facility] Test 14:10:19 SCREENING [code = BREAST CANCER SCREENING] Future Scheduled 2021-06-26 Screening for [facility] Test 14:10:19 malignant neoplasm of cervix (procedure) [code = 948204401] Future Scheduled 2021-06-26 INFLUENZA VACCINE Method ist Hospital Test 14:10:19 [code = INFLUENZA VACCINE] Future Scheduled 2021-06-26 COVID-19 VACCINE (1) Met [facility] Test 14:10:19 [code = COVID-19 VACCINE (1)] Future Scheduled 2021-06-26 DIABETES: RETINAL EYE [facility] Test 14:10:19 EXAM [code = DIABETES: RETINAL EYE EXAM] Future Scheduled 2021-06-26 DIABETIC FOOT EXAM [facility] Test 14:10:19 [code = DIABETIC FOOT EXAM] Future Scheduled 2021-06-26 COLONOSCOPY SCREENING [facility] Test 14:10:19 [code = COLONOSCOPY SCREENING] Future Scheduled 2021-06-26 SHINGLES VACCINES (#1) [facility] Test 14:10:19 [code = SHINGLES VACCINES (#1)] Future Scheduled 2021-06-26 BREAST CANCER [facility] Test 14:10:19 SCREENING [code = BREAST CANCER SCREENING] Future Scheduled 2021-06-26 Screening for [facility] Test 14:10:19 malignant neoplasm of cervix (procedure) [code = [id number]] Future Scheduled 2021-06-26 INFLUENZA VACCINE Method [facility] Test 14:10:19 [code = INFLUENZA VACCINE] Future Scheduled 2021-06-26 COVID-19 VACCINE (1) Met [facility] Test 14:10:19 [code = COVID-19 VACCINE (1)] Future Scheduled 2021-06-26 DIABETES: RETINAL EYE [facility] Test 14:10:19 EXAM [code = DIABETES: RETINAL EYE EXAM] Future Scheduled 2021-06-26 DIABETIC FOOT EXAM [facility] Test 14:10:19 [code = DIABETIC FOOT EXAM] Future Scheduled 2021-06-26 COLONOSCOPY SCREENING [facility] Test 14:10:19 [code = COLONOSCOPY SCREENING] Future Scheduled 2021-06-26 SHINGLES VACCINES (#1) [facility] Test 14:10:19 [code = SHINGLES VACCINES (#1)] Future Scheduled 2021-06-26 BREAST CANCER [facility] Test 14:10:19 SCREENING [code = BREAST CANCER SCREENING] Future Scheduled 2021-06-26 Screening for [facility] Test 14:10:19 malignant neoplasm of cervix (procedure) [code = [id number]] Future Scheduled 2021-06-26 INFLUENZA VACCINE Method [facility] Test 14:10:19 [code = INFLUENZA VACCINE] Future Scheduled 2021-06-26 COVID-19 VACCINE (1) Met [facility] Test 14:10:19 [code = COVID-19 VACCINE (1)] Future Scheduled 2021-06-26 DIABETES: RETINAL EYE [facility] Test 14:10:19 EXAM [code = DIABETES: RETINAL EYE EXAM] Future Scheduled 2021-06-26 DIABETIC FOOT EXAM [facility] Test 14:10:19 [code = DIABETIC FOOT EXAM] Future Scheduled 2021-06-26 COLONOSCOPY SCREENING [facility] Test 14:10:19 [code = COLONOSCOPY SCREENING] Future Scheduled 2021-06-26 SHINGLES VACCINES (#1) [facility] Test 14:10:19 [code = SHINGLES VACCINES (#1)] Future Scheduled 2021-06-26 BREAST CANCER [facility] Test 14:10:19 SCREENING [code = BREAST CANCER SCREENING] Future Scheduled 2021-06-26 Screening for [facility] Test 14:10:19 malignant neoplasm of cervix (procedure) [code = 236372577] Future Scheduled 2021-06-26 INFLUENZA VACCINE Method [facility] Test 14:10:19 [code = INFLUENZA VACCINE] Future Scheduled 2021-06-26 COVID-19 VACCINE (1) Met [facility] Test 14:10:19 [code = COVID-19 VACCINE (1)] Future Scheduled 2021-06-26 DIABETES: RETINAL EYE [facility] Test 14:10:19 EXAM [code = DIABETES: RETINAL EYE EXAM] Future Scheduled 2021-06-26 DIABETIC FOOT EXAM [facility] Test 14:10:19 [code = DIABETIC FOOT EXAM] Future Scheduled 2021-06-26 COLONOSCOPY SCREENING [facility] Test 14:10:19 [code = COLONOSCOPY SCREENING] Future Scheduled 2021-06-26 SHINGLES VACCINES (#1) [facility] Test 14:10:19 [code = SHINGLES VACCINES (#1)] Future Scheduled 2021-06-26 BREAST CANCER [facility] Test 14:10:19 SCREENING [code = BREAST CANCER SCREENING] Future Scheduled 2021-06-26 Screening for [facility] Test 14:10:19 malignant neoplasm of cervix (procedure) [code = [id number]] Future Scheduled 2021-06-26 INFLUENZA VACCINE [facility] Test 14:10:19 [code = INFLUENZA VACCINE] Future Scheduled 2021-06-[address] [facility] Test 00:[facility] (procedure[facility] [code = [facility] [id number]] Future Scheduled 2021-06-[address] [facility] Test 00:00:00 (procedure) [code = Medical Center 53220075] Future Scheduled 2021-06-[address] [facility] Test 00:00:00 (procedure) [code = Medical Center [id number]] Future Scheduled 2021-06-[address] [facility] Test 00:00:00 (procedure) [code = Medical Center 97140529] Future Scheduled 2021-06-[address] [facility] Test 00:00:00 (procedure) [code = Medical Center 47660142] Future Scheduled 2021-06-[address] [facility] Test 00:00:00 (procedure) [code = Medical Center 25019185] Future Scheduled 2021-06-[address] [facility] Test 00:00:00 (procedure) [code = Medical Center [id number]] Future Scheduled 2021-06-[address] [facility] Test 00:00:00 (procedure) [code = Medical Center [id number]] Future Scheduled 2021-06-[address] [facility] Test 00:00:00 (procedure) [code = Medical Center 54011762] Future Scheduled 2021-06-[address] [facility] Test 00:00:00 (procedure) [code = Medical Center [id number]] Future Scheduled 2021-06-[address] [facility] Test 00:00:00 (procedure) [code = Medical Center [id number]] Future Scheduled 2021-06-[address] [facility] Test 00:00:00 (procedure) [code = Medical Center [id number]] Future Scheduled 2021-06-[address] [facility] Test 00:00:00 (procedure) [code = Medical Center 21934323] Future Scheduled 2021-06-[address] [facility] Test 00:00:00 (procedure) [code = Medical Center 52441134] Future Scheduled 2021-06-[address] [facility] Test 00:00:00 (procedure) [code = Medical Center 46589944] Future Scheduled 2021-06-[address] [facility] Test 00:00:00 (procedure) [code = Medical Center 85280122] Future Scheduled 2021-06-[address] [facility] Test 00:00:00 (procedure) [code = [facility] [id number]] Future Scheduled 2021-06-[address] [facility] Test 00:00:00 (procedure) [code = [facility] [id number]] Future Scheduled 2021-06-[address] [facility] Test 00:00:00 (procedure) [code = [facility] [id number]] Future Scheduled 2021-06-[address] [facility] Test 00:00:00 (procedure) [code = [facility] [id number]] Future Scheduled 2021-06-[address] [facility] Test 00:00:00 (procedure) [code = [facility] [id number]] Future Scheduled 2021-06-[address] [facility] Test 00:00:00 (procedure) [code = [facility] [id number]] Future Scheduled 2021-06-10 COVID-19 VACCINE (1) Met [facility] Test 17:58:22 [code = COVID-19 VACCINE (1)] Future Scheduled 2021-06-10 DIABETES: RETINAL EYE [facility] Test 17:58:22 EXAM [code = DIABETES: RETINAL EYE EXAM] Future Scheduled 2021-06-10 DIABETIC FOOT EXAM [facility] Test 17:58:22 [code = DIABETIC FOOT EXAM] Future Scheduled 2021-06-10 COLONOSCOPY SCREENING [facility] Test 17:58:22 [code = COLONOSCOPY SCREENING] Future Scheduled 2021-06-10 SHINGLES VACCINES (#1) [facility] Test 17:58:22 [code = SHINGLES VACCINES (#1)] Future Scheduled 2021-06-10 BREAST CANCER [facility] Test 17:58:22 SCREENING [code = BREAST CANCER SCREENING] Future Scheduled 2021-06-10 [facility] Test 17:58:22 malignant neoplasm of cervix (procedure) [code = 892584925] Future Scheduled 2021-06-10 INFLUENZA VACCINE [facility] Test 17:58:22 [code = INFLUENZA VACCINE] Future Scheduled 2021-05-12 COVID-19 VACCINE (1) Met [facility] Test 00:12:28 [code = COVID-19 VACCINE (1)] Future Scheduled 2021-05-12 DIABETES: RETINAL EYE [facility] Test 00:12:28 EXAM [code = DIABETES: RETINAL EYE EXAM] Future Scheduled 2021-05-12 DIABETIC FOOT EXAM [facility] Test 00:12:28 [code = DIABETIC FOOT EXAM] Future Scheduled 2021-05-12 COLONOSCOPY SCREENING [facility] Test 00:12:28 [code = COLONOSCOPY SCREENING] Future Scheduled 2021-05-12 SHINGLES VACCINES (#1) [facility] Test 00:12:28 [code = SHINGLES VACCINES (#1)] Future Scheduled 2021-05-12 BREAST CANCER [facility] Test 00:12:28 SCREENING [code = BREAST CANCER SCREENING] Future Scheduled 2021-05-12 Screening for [facility] Test 00:12:28 malignant neoplasm of cervix (procedure) [code = 042519668] Future Scheduled 2021-05-12 INFLUENZA VACCINE [facility] Test 00:12:28 [code = INFLUENZA VACCINE] [...] Future Scheduled 2021-02-11 COVID-19 VACCINE (1) Met [facility] Test 13:55:42 [code = COVID-19 VACCINE (1)] Future Scheduled 2021-02-11 DIABETES: RETINAL EYE [facility] Test 13:55:42 EXAM [code = DIABETES: RETINAL EYE EXAM] Future Scheduled 2021-02-11 DIABETIC FOOT EXAM [facility] Test 13:55:42 [code = DIABETIC FOOT EXAM] Future Scheduled 2021-02-11 COLONOSCOPY SCREENING [facility] Test 13:55:42 [code = COLONOSCOPY SCREENING] Future Scheduled 2021-02-11 SHINGLES VACCINES (#1) [facility] Test 13:55:42 [code = SHINGLES VACCINES (#1)] Future Scheduled 2021-02-11 BREAST CANCER [facility] Test 13:55:42 SCREENING [code = BREAST CANCER SCREENING] Future Scheduled 2021-02-11 Screening for [facility] Test 13:55:42 malignant neoplasm of cervix (procedure) [code = 427052622] Future Scheduled 2021-02-11 INFLUENZA VACCINE Method ist [...] - Booster for Pfizer series)] Future Scheduled 2020-09-24 COVID-19 VACCINE (3 - [facility] Booster for Pfizer Medical C enter series) [code = COVID-19 VACCINE (3 - Booster for Pfizer series)] Future Scheduled 2020-09-24 COVID-19 VACCINE (3 - [facility] 00:[facility]:00 Booster for Pfizer Medical C enter series) [code = COVID-19 VACCINE (3 - Booster for Pfizer series)] Future Scheduled 2020-09-24 COVID-19 VACCINE (3 - [facility] 00:00:00 Booster for Pfizer Medical C enter series) [code = COVID-19 VACCINE (3 - Booster for Pfizer series)] Future Scheduled 2020-09-24 COVID-19 VACCINE (3 - [facility] 00:00:00 Booster for Pfizer Medical C enter series) [code = COVID-19 VACCINE (3 - Booster for Pfizer series)] Future Scheduled 2020-08-[address] [facility] (procedure) [code = 39529621] Future Scheduled 2020-08-[address] [facility] (procedure) [code = 35379451] Future Scheduled 2020-08-[address] [facility] (procedure) [code = 45604572] Future Scheduled 2020-08-[address] [facility] (procedure) [code = 18634653] Future Scheduled 2020-08-[address] [facility] (procedure) [code = 06353722] Future Scheduled 2020-08-[address] [facility] (procedure) [code = 22467395] Future Scheduled 2020-08-[address] [facility] (procedure) [code = 34866446] Future Scheduled 2020-08-[address] [facility] (procedure) [code = 10590207] Future Scheduled 2020-08-[address] [facility] measurement [facility] (procedure) [code = 66145651] Future Scheduled 2020-08-[address] [facility] (procedure) [code = 48190347] Future Scheduled 2020-08-[address] [facility] measurement [facility] (procedure) [code = 47444021] Future Scheduled 2020-08-[address] [facility] 00:[facility] measurement [facility] (procedure) [code = 84617813] Future Scheduled 2020-08-[address] [facility] 00:[facility] measurement [facility] (procedure) [code = 25550318] Future Scheduled 2020-08-[address] [facility] 00[facility] measurement [facility] (procedure) [code = 23671788] Future Scheduled 2020-08-[address] [facility] measurement [facility] (procedure) [code = 04876461] Future Scheduled 2020-08-[address] [facility] 00:[facility] measurement [facility] (procedure) [code = 52205028] Future Scheduled 2020-08-[address] [facility] 00:[facility] measurement [facility] (procedure) [code = 97155748] Future Scheduled 2020-08-[address] [facility] 00:[facility] measurement [facility] (procedure) [code = 83410760] Future Scheduled 2020-08-[address] [facility] measurement [facility] (procedure) [code = 75786674] Future Scheduled 2020-08-[address] [facility] 00:[facility] measurement [facility] (procedure) [code = 72667174] Future Scheduled 2020-08-[address] [facility] 00:[facility] measurement [facility] (procedure) [code = 85056462] Future Scheduled 2020-08-[address] [facility] 00:[facility] measurement Medical Center (procedure) [code = 70638717] Future Scheduled 2019-11-[address] [facility]oplasm of [facility] Center breast (procedure) [code = 073490380] Future Scheduled 2019-11-[address] [facility] 00:00:[facility] breast (procedure) [code = 147971226] Future Scheduled 2019-11-[address] [facility] 00:00:00 [facility] breast (procedure) [code = 384116579] Future Scheduled 2019-11-[address] [facility] 00:00:00 [facility] breast (procedure) [code = 944279183] Future Scheduled 2019-11-[address] [facility] 00:00:00 [facility] breast (procedure) [code = 424758445] Future Scheduled 2019-11-[address] [facility] 00:00:00 [facility] breast (procedure) [code = 106758261] Future Scheduled 2019-11-[address] [facility] 00:00:00 [facility] Center breast (procedure) [code = 000231303] Future Scheduled 2019-11-[address] [facility] breast (procedure) [code = 539530923] Future Scheduled 2019-11-[address] [facility]:00 [facility] breast (procedure) [code = 799994594] Future Scheduled 2019-11-[address] [facility]:00 [facility] breast (procedure) [code = 128417254] Future Scheduled 2019-11-[address] [facility]:00 [facility] breast (procedure) [code = 940048865] Future Scheduled 2019-11-[address] [facility]:00 [facility] breast (procedure) [code = 268345576] Future Scheduled 2019-11-[address] [facility] 00:00:00 [facility] breast (procedure) [code = 862138946] Future Scheduled 2019-11-[address] [facility]:00:00 [facility] breast (procedure) [code = 639178209] Future Scheduled 2019-11-[address] [facility] 00:00:00 [facility] breast (procedure) [code = 146080382] Future Scheduled 2019-11-[address] [facility] 00:00:00 [facility] breast (procedure) [code = 942469159] Future Scheduled 2019-11-[address] [facility] 00:00:00 [facility] breast (procedure) [code = 770361927] Future Scheduled 2019-11-[address] [facility] 00:00:00 [facility] breast (procedure) [code = 495589924] Future Scheduled 2019-11-[address] [facility] 00:00:00 [facility] breast (procedure) [code = 044519818] Future Scheduled 2019-11-[address] [facility] 00:00:00 [facility] breast (procedure) [code = 078962885] Future Scheduled 2019-11-[address] [facility] breast (procedure) [code = 501420930] Future Scheduled 2019-11-[address] [facility]:00:00 [facility] breast (procedure) [code = 298890078] Future Scheduled 2018-06-[address] [...] DTAP/TDAP/TD VACCINES (1 - Tdap)] Future Scheduled [address] [facility] 00:[facility]:00 [facility] and [facility] Cent[facility] Screening (12+) [code = Tobacco Cessation Counseling and Screening (12+)] Future Scheduled [address] [facility] 00:00:00 [facility]ing and [facility] Cent[facility] r Screening (12+) [code = Tobacco Cessation Counseling and Screening (12+)] Future Scheduled 1967-09-[address] [facility] 00:00:00 [code = DIABETIC EYE [facility] Center EXAM] Future Scheduled 1967-09-05 Urine screening for [facility] 00:00:00 protein (procedure) [facility] Center [code = 710341458] Future Scheduled 1967-09-[address] DI[address] EX[address] [facility] 00:00:00 [code = DIABETIC EYE [facility] EXAM] Future Scheduled 1967-09-[address] [facility] 00:[facility]:00 examination Medical Center (regime/therapy) [code = 899830994] Future Scheduled 1967-09-05 Urine screening for [facility] 00:00:00 protein (procedure) [facility] [code = 271193421] Future Scheduled 1967-09-[address] [facility] EX[address] [facility] 00:00:00 [code = DIABETIC EYE [facility] EXAM] Future Scheduled 1967-09-[address] [facility] 00:[facility]:00 examination [facility] Center (regime/therapy) [code = 838259826] Future Scheduled 1967-09-05 Urine screening for [facility] 00:00:00 protein (procedure) [facility] [code = 115139165] Future Scheduled 1967-09-[address] [facility] [facility] 00:00:00 [code = DIABETIC EYE [facility] EXAM] Future Scheduled 1967-09-[address] [facility] 00:[facility]:00 examination [facility] Center (regime/therapy) [code = 373351713] Future Scheduled 1967-09-05 Urine screening for [facility] 00:00:00 protein (procedure) [facility] [code = 015638605] Future Scheduled 1967-09-[address] DI[address] EXAM [facility] 00:00:00 [code = DIABETIC EYE [facility] EXAM] Future Scheduled 1967-09-[address] [facility] 00:00:00 examination [facility] Center (regime/therapy) [code = 530530359] Future Scheduled 1967-09-05 Urine screening for [facility] 00:00:00 protein (procedure) [facility] [code = 635873169] Future Scheduled 1967-09-[address] EX[address] [facility] 00:00:00 [code = DIABETIC EYE [facility] EXAM] Future Scheduled 1967-09-[address] [facility] 00:00:00 examination [facility] Center (regime/therapy) [code = 608509152] Future Scheduled 1967-09-05 Urine screening for [facility] 00:00:00 protein (procedure) [facility] Center [code = 857186955] Future Scheduled 1967-09-[address] DI[address] EXAM [facility] 00:00:00 [code = DIABETIC EYE [facility] EXAM] Future Scheduled 1967-09-[address] [facility] 00:00:00 examination [facility] Center (regime/therapy) [code = 369015090] Future Scheduled 1967-09-05 Urine screening for [facility] 00:00:00 protein (procedure) [facility] Center [code = 212555399] Future Scheduled 1967-09-[address] DI[address] EXAM [facility] 00:00:00 [code = DIABETIC EYE [facility] EXAM] Future Scheduled 1967-09-[address] [facility] 00:00:00 examination [facility] Center (regime/therapy) [code = 834569552] Future Scheduled 1967-09-05 Urine screening for [facility] 00:00:00 protein (procedure) [facility] Center [code = 054370357] Future Scheduled 1967-09-[address] DIAB[address]YE EXAM [facility] 00:00:00 [code = DIABETIC EYE [facility] EXAM] Future Scheduled 1967-09-[address] [facility] 00:00:00 examination [facility] Center (regime/therapy) [code = 580607127] Future Scheduled 1967-09-05 Urine screening for [facility] 00:00:00 protein (procedure) [facility] Center [code = 434871334] Future Scheduled 1967-09-[address] DI[address]YE EXAM [facility] 00:00:00 [code = DIABETIC EYE [facility] EXAM] Future Scheduled 1967-09-[address] [facility] 00:00:00 examination [facility] Center (regime/therapy) [code = 122020348] Future Scheduled 1967-09-05 Urine screening for [facility] 00:00:00 protein (procedure) [facility] Center [code = 975054116] Future Scheduled 1967-09-[address] DI[address] EXAM [facility] 00:00:00 [code = DIABETIC EYE [facility] EXAM] Future Scheduled 1967-09-[address] [facility] 00:00:00 examination [facility] Center (regime/therapy) [code = 754585686] Future Scheduled 1967-09-05 Urine screening for [facility] 00:00:00 protein (procedure) [facility] Center [code = 796386904] Future Scheduled 1967-09-[address] DI[address] EXAM [facility] 00:00:00 [code = DIABETIC EYE [facility] Center EXAM] Future Scheduled 1967-09-05 Urine screening for [facility] 00:00:00 protein (procedure) [facility] Center [code = 116891080] Future Scheduled 1967-09-[address] EXAM [facility] 00:00:00 [code = DIABETIC EYE [facility] EXAM] Future Scheduled 1967-09-05 Urine screening for [facility] 00:00:00 protein (procedure) [facility] Center [code = 130204762] Future Scheduled 1967-09-[address] DI[address]YE EXAM [facility] 00:00:00 [code = DIABETIC EYE [facility] Center EXAM] Future Scheduled 1967-09-05 Urine screening for [facility] 00:00:00 protein (procedure) [facility] Center [code = 654879130] Future Scheduled 1967-09-[address] DI[address] EXAM [facility] 00:00:00 [code = DIABETIC EYE Medical Center EXAM] Future Scheduled 1967-09-05 Urine screening for [facility] 00:00:00 protein (procedure) [facility] Center [code = 162447297] Future Scheduled 1967-09-[address] DI[address]YE EXAM [facility] 00:00:00 [code = DIABETIC EYE [facility] Center EXAM] Future Scheduled 1967-09-05 Urine screening for [facility] 00:00:00 protein (procedure) [facility] Center [code = 604286548] Future Scheduled 1967-09-[address] EXAM [facility] 00:00:00 [code = DIABETIC EYE [facility] EXAM] Future Scheduled 1967-09-05 Urine screening for [facility] 00:00:00 protein (procedure) [facility] Center [code = 375476418] Future Scheduled 1967-09-[address] DI[address]YE EXAM [facility] 00:00:00 [code = DIABETIC EYE [facility] Center EXAM] Future Scheduled 1967-09-05 Urine screening for [facility] 00:00:00 protein (procedure) [facility] Center [code = 761311245] Future Scheduled 1967-09-[address] EXAM [facility] 00:00:00 [code = DIABETIC EYE Medical Center EXAM] Future Scheduled 1967-09-05 Urine screening for [facility] 00:00:00 protein (procedure) [facility] Center [code = 508075707] Future Scheduled 1967-09-[address] DI[address]YE EXAM [facility] 00:00:00 [code = DIABETIC EYE Medical Center EXAM] Future Scheduled 1967-09-05 Urine screening for [facility] 00:00:00 protein (procedure) [facility] Center [code = 304732612] Future Scheduled 1967-09-[address] DI[address] EXAM [facility] 00:00:00 [code = DIABETIC EYE [facility] EXAM] Future Scheduled 1967-09-[address] [facility] 00:00:00 examination Medical Center (regime/therapy) [code = 403841552] Future Scheduled 1967-09-05 Urine screening for [facility] 00:00:00 protein (procedure) [facility] Center [code = 944221396] Future Scheduled 1967-09-[address] DI[address] EXAM [facility] 00:00:00 [code = DIABETIC EYE Medical Center EXAM] Future Scheduled 1967-09-[address] [facility] 00:00:00 examination Medical Center (regime/therapy) [code = 194424755] Future Scheduled 1967-09-05 Urine screening for [facility] 00:00:00 protein (procedure) [facility] [code = 483776286] Future Scheduled [address] [facility] 00:00:00 (combo) [code = CT Medical C enter Colonography (combo)] Future Scheduled 1957 DXA SCAN [code = DXA [facility] 00[facility]00:00 SCAN] [facility] Future Scheduled [address] [facility] 00:00:00 [facility] colon (procedure) [code = 582048228] Future Scheduled [address] [facility] 00:00:00 [facility] colon (procedure) [code = 257098368] Future Scheduled 1957 Sigmoidoscopy [[facility] = [facility]] [facility] Future Scheduled [address] [facility] 00:00:00 [facility] colon (procedure) [code = 600078944] Future Scheduled [address] [facility] 00:00:00 [facility] colon (procedure) [code = 205311272] Future Scheduled [address] [facility] 00:00:00 [facility] colon (procedure) [code = 827878344] Future Scheduled [address] [facility] 00:00:00 (combo) [code = CT Medical C enter Colonography (combo)] Future Scheduled [address] [facility] 00:00:00 malignant [facility] colon (procedure) [code = 063412171] Future Scheduled [address] [facility] 00:00:00 malignant neoplasm [facility] colon (procedure) [code = 658288592] Future Scheduled [address] [facility] 00:00:00 malignant neoplasm [facility] colon (procedure) [code = 820100595] Future Scheduled [address] [facility] 00:00:00 malignant [facility] colon (procedure) [code = 424660292] Future Scheduled 1957 Sigmoidoscopy [facility] Future Scheduled [address] [facility] 00:00:00 (combo) [code = CT Medical C enter Colonography (combo)] Future Scheduled [address] [facility]:00 [facility] colon (procedure) [code = 946754293] Future Scheduled [address] [facility] 00:00:00 [facility] colon (procedure) [code = 649224805] Future Scheduled [address] [facility] 00:00:00 malignant [facility] colon (procedure) [code = 008388164] Future Scheduled [address] [facility] 00:00:00 malignant [facility] colon (procedure) [code = 599831701] Future Scheduled 1957 S[facility]oidoscopy [facility]] [facility] Future Scheduled [address] [facility] 00:00:00 (combo) [code = CT Medical C enter Colonography (combo)] Future Scheduled [address] [facility] 00:00:00 [facility] colon (procedure) [code = 569495582] Future Scheduled [address] [facility] 00:00:00 malignant [facility] colon (procedure) [code = 128734683] Future Scheduled [address] [facility] 00:00:00 malignant [facility] colon (procedure) [code = 934806363] Future Scheduled [address] [facility] 00:00:00 malignant neoplasm [facility] colon (procedure) [code = 747305580] Future Scheduled 1957 S[facility]oidoscopy [facility] [address] [facility] 00:00:00 (combo) [code = CT Medical C enter Colonography (combo)] Future Scheduled [address] [facility] 00:00:00 malignant neoplasm [facility] colon (procedure) [code = 284482889] Future Scheduled [address] [facility] 00:00:00 [facility] colon (procedure) [code = 388678406] Future Scheduled [address] [facility] 00:00:00 malignant neoplasm [facility] colon (procedure) [code = 013589774] Future Scheduled [address] [facility] 00:00:00 malignant neoplasm [facility] colon (procedure) [code = 817057639] Future Scheduled 1957 [facility] [address] [facility] 00:00:00 (combo) [code = CT Medical C enter Colonography (combo)] Future Scheduled [address] [facility] 00:00:00 malignant ne[facility] colon (procedure) [code = 842899711] Future Scheduled [address] [facility] 00:00:00 [facility] ne[facility] colon (procedure) [code = 645450502] Future Scheduled 1957 S[facility]oidoscopy [facility] [address] [facility] 00:00:00 (combo) [code = CT Medical C enter Colonography (combo)] Future Scheduled [address] [facility] 00:00:00 [facility] colon (procedure) [code = 499082118] Future Scheduled [address] [facility] 00:00:00 [facility] colon (procedure) [code = 415266139] Future Scheduled 1957 S[facility]oidoscopy [facility]] [facility] Future Scheduled [address] [facility] 00:00:00 (combo) [code = CT Medical C enter Colonography (combo)] Future Scheduled [address] [facility] 00:00:00 [facility] colon (procedure) [code = 021681137] Future Scheduled [address] [facility] 00:00:00 [facility] ne[facility] colon (procedure) [code = 657512165] Future Scheduled 1957 Sigmoidoscopy [[facility] = [facility]] [facility] Future Scheduled [address] [facility] 00:00:00 (combo) [code = CT Medical C enter Colonography (combo)] Future Scheduled [address] [facility] 00:00:00 [facility] colon (procedure) [code = 531800096] Future Scheduled [address] [facility] 00:00:00 malignant neoplasm [facility] colon (procedure) [code = 724888720] Future Scheduled 1957 Sigmoidoscopy [[facility]] [facility] Future Scheduled [address] [facility] 00:00:00 (combo) [code = CT Medical C enter Colonography (combo)] Future Scheduled [address] [facility] 00:00:00 [facility] colon (procedure) [code = 494383315] Future Scheduled [address] [facility] 00:00:00 malignant neoplasm [facility] colon (procedure) [code = 932308384] Future Scheduled 1957 Sigmoidoscopy [code [facility]] [facility] Future Scheduled [address] [facility] 00:00:00 (combo) [code = CT Medical C enter Colonography (combo)] Future Scheduled [address] [facility] 00:00:00 malignant neoplasm [facility] colon (procedure) [code = 331057242] Future Scheduled [address] [facility] 00:00:00 malignant neoplasm of [facility] colon (procedure) [code = 888393464] Future Scheduled 1957 Sigmoidoscopy [[facility]] [facility] Future Scheduled [address] [facility] 00:00:00 (combo) [code = CT Medical C enter Colonography (combo)] Future Scheduled [address] [facility] 00:00:00 malignant neoplasm [facility] colon (procedure) [code = 250780322] Future Scheduled [address] [facility] 00:00:00 malignant neoplasm of [facility] colon (procedure) [code = 931782891] Future Scheduled 1957 Sigmoidoscopy [[facility]] [facility] Future Scheduled [address] [facility] 00:00:00 (combo) [code = CT Medical C enter Colonography (combo)] Future Scheduled [address] [facility] 00:00:00 malignant neoplasm [facility] colon (procedure) [code = 133657492] Future Scheduled [address] [facility] 00:00:00 malignant neoplasm of [facility] colon (procedure) [code = 851999205] Future Scheduled 1957 Sigmoidoscopy [[facility]] [facility] [place] [facility] Future Scheduled [address] [facility] 00:00:00 (combo) [code = CT Medical C enter Colonography (combo)] Future Scheduled [address] [facility] 00:00:00 malignant neoplasm of [facility] colon (procedure) [code = 927733472] Future Scheduled [address] [facility] 00:00:00 malignant neoplasm of [facility] colon (procedure) [code = 657009370] Future Scheduled 1957 Sigmoidoscopy [[facility]] [facility] [place] [facility] Future Scheduled [address] [facility] 00:00:00 (combo) [code = CT Medical C enter Colonography (combo)] Future Scheduled [address] [facility] 00:00:00 malignant neoplasm [facility] colon (procedure) [code = 526970647] Future Scheduled [address] [facility] 00:00:00 malignant neoplasm of [facility] colon (procedure) [code = 177524645] Future Scheduled 1957 Sigmoidoscopy [code [facility]] [facility] [place] [facility] Future Scheduled [address] [facility] 00:00:00 (combo) [code = CT Medical C enter Colonography (combo)] Future Scheduled [address] [facility] 00:00:00 malignant neoplasm [facility] colon (procedure) [code = 339106149] Future Scheduled [address] [facility] 00:00:00 malignant neoplasm of [facility] colon (procedure) [code = 064450794] Future Scheduled 1957 Sigmoidoscopy [code [facility]oscopy] [facility] [place] [facility] Future Scheduled [address] [facility] 00:00:00 (combo) [code = CT Medical C enter Colonography (combo)] Future Scheduled [address] [facility] 00:00:00 malignant neoplasm of [facility] colon (procedure) [code = 847704153] Future Scheduled [address] [facility] 00:00:00 malignant neoplasm of [facility] colon (procedure) [code = 236359359] Future Scheduled 1957 Sigmoidoscopy [code [facility]] [facility] Future Scheduled [address] [facility] 00:00:00 [facility] colon (procedure) [code = 298057430] Future Scheduled [address] [facility] 00:00:00 [facility] colon (procedure) [code = 837058361] Encounters Start End Encounter Admission Attending Care Care Encounter Source Date/Time Date/Time Type Type Clinicians Facility Department ID 2021-07-06 [facility] Surgery [id number] [facility] 14:33:12 HARSHINIE 2021-07-06 Hospital [facility] [id number] [facility] 00:00:00 Encounter [facility] 2018-09-18 Outpatient [facility] [address] [facility] 08:26:04 2022-07-31 2022-07-31 Refill JOSAFAT [place] 1.2.840.114 [id number] [facility] 00:00:00 00:00:00 Adele PRIMARY 350.1.13.10 [place] [id number] Az dical [address] 2022-06-02 2022-06-02 Orders Doctor KRZYSZTOF 1.2.840.114 [id number] Univers 00:00:00 00:00:00 Only Unassigned, DEEDEE 350.1.13.10 ity of [place] [facility] 4.2.7.2.686 Socrates as [id number] [facility] yoel [address] 2022-06-012022-06-01 Telephone [facility] 1.2.840.114 1 [id number] Univers 00:00:00 00:00:00 Fracisco GARCIA 350.1.13.10 i [place] [id number] Az dical NAL [address] [place] [address] 2022-05-31 2022-05-31 Abstract Candido Balderarma 1.2.840.1 [id number] 2 [id number] Methodi 00:00:00 00:00:00 Emmie-Zaldivar 07950.1.1 461 s t 3.430.2.7 Hospit a .3.446320 l .8 2022-05-31 2022-05-31 Abstract Candido Balderrama 1.2.840.1 [id number] 2 [id number] Methodi 00:00:00 00:00:00 Emmie-Zaldivar 91770.1.1 461 s t 3.430.2.7 Hospit a .3.569091 l .8 2022-04-08 2022-04-08 Telephone [facility] 1.2.840.114 [id number] Univers 00:00:00 00:00:00 Fracisco GARCIA 350.1.13.10 i ty [place] [id number] Az dicar NAL [address] [place] [address] 2022-04-06 2022-04-06 Orders Doctor KRZYSZTOF 1.2.840.114 [id number] Univers 00:00:00 00:00:00 Only Unassigned, DEEDEE 350.1.13.10 ity of [place] [facility] 4.2.7.2.686 Socrates as [id number] [address] 2022-04-06 2022-04-06 Telephone [facility] 1.2.840.114 [id number] Univers 00:00:00 00:00:00 Fracisco GARCIA 350.1.13.10 i ty [place] [id number] Az dicar NAL [address] [place] [address] 2022-04-02 2022-04-02 Telephone [facility] 1.2.840.114 [id number] Univers 00:00:00 00:00:00 Fracisco GARCIA 350.1.13.10 i ty [place] [id number] Az dic[address] 2022-02-08 2022-02-08 [facility] [id number] 00:00:00 00:00:00 [facility] 2022-02-08 2022-02-08 [facility] [id number] 00:00:00 00:00:00 [facility] 2022-01-29 2022-01-29 Outpatient R DORIAN, [facility] [id number] Univers 08:00:00 08:00:00 BRENDA nuñez [facility] 2022-01-28 2022-01-28 Outpatient R DORIAN, [facility] [id number] Univers 08:00:00 08:00:00 [facility] 2022-01-11 2022-01-11 Outpatient R DORIAN, [facility] [id number] Univers 15:40:00 15:40:00 [facility] 2021-12-[facility] 2021-12-24 Out[facility] [id number] Univers 15:40:00 15:40:00 FRACISCO nuñez [facility] 2021-12-15 2021-12-15 Orders Doctor KRZYSZTOF 1.2.840.114 [id number] Univers 00:00:00 00:00:00 Only Unassigned, DEEDEE 350.1.13.10 ity of [place] [facility] 4.2.7.2.686 Socrates as [id number] [address] 2021-12-08 2021-12-08 [facility] 1.2.840.114 [id number] Univers 00:00:00 00:00:00 Fracisco GARCIA 350.1.13.10 i [facility] [place] [phone] Az dical NAL 044 [facility] 2021-12-08 2021-12-08 [facility]phone [facility] 1.2.697.598 [id number] Univers 00:00:00 00:00:00 Brenda GARCIA 350.1.13.10 ity of [facility] [place] [phone] Az dical NAL 059 [facility] 2021-11-27 2021-11-27 Outpatient R ROGER ARAUJO [facility] [id number] Univers 15:00:00 15:00:[address] [facility] 2021-11-24 2021-11-24 Telephone [facility] 1.2.840.114 [id number] Univers 00:00:00 00:00:00 Fracisco GARCIA 350.1.13.10 i ty of [place].2.7.2.[place] [id number] Az dical NAL 044 [facility] 2021-11-16 2021-11-16 Telephone [facility] 1.2.840.114 9 [id number] Univers 00:00:00 00:00:00 Fracisco GARCIA 350.1.13.10 i ty of [place] 4.[place].7.2.[place] [id number] Az dical NAL 044 [facility] 2021-11-10 2021-11-10 Outpatient R ROGER ARAUJO [facility] [id number] Univers 08:00:00 08:00:[address] [facility] 2021-10-23 2021-10-23 Outpatient Nola FUENTES [facility] [id number] Univers 08:20:00 08:20:00 BRENDA blue [facility] 2021-10-21 2021-10-21 Orders Doctor KRZYSZTOF 1.2.840.114 [id number] Univers 00:00:00 00:00:00 Only Unassigned, DEEDEE 350.1.13.10 ity of [place] [facility] 4.2.7.2.686 Socrates as [phone] [address] 2021-10-20 2021-10-20 Telephone [facility] 1.2.794.280 [id number] Univers 00:00:00 00:00:00 Brenda GARCIA 350.1.13.10 ity of [place].7.2.[place] [id number] Az dical NAL 9 [facility] 2021-10-13 2021-10-13 Outpatient R VANROGER Cerda [facility] [id number] Univers 08:40:00 08:40:[address] ity [facility] 2021-09-29 2021-09-29 Outpatient R DORIAN, [facility] [id number] Univers 15:00:00 15:29:27 BRENDA olmedo [facility] 2021-09-29 2021-09-29 Office [facility] 1.2.840.114 [id number] Univers 15:00:00 15:29:27 Visit Brenda GARCIA 350.1.13.10 ity of [facility] 4.2.7.2.[place] [phone] Az dical NAL 9 [facility] 2021-09-29 2021-09-29 Outpatient R DORIAN, [facility] [id number] Univers 15:00:00 15:29:27 BRENDA olmedo [facility] 2021-09-29 2021-09-29 Office [facility] 1.2.840.114 [id number] Univers 15:00:00 15:29:27 Visit Brenda GARCIA 350.1.13.10 ity of [facility] 4.2.7.2.[place] [phone] Az dical NAL 9 [facility] 2021-09-29 2021-09-29 Outpatient R DORIAN, [facility] [id number] Univers 15:00:00 15:00:00 BRENDA olmedo [facility] 2021-09-29 2021-09-29 Telephone [facility] 1.2.840.114 9 [id number] Univers 00:00:00 00:00:00 Fracisco GARCIA 350.1.13.10 i ty of [place] 4.2.7.2.[place] [phone] Az dic[address] 2021-09-24 2021-09-24 Telephone [facility] 1.2.840.114 9 [id number] Univers 00:00:00 00:00:00 Fracisco GARCIA 350.1.13.10 i ty of [place] 4.2.7.2.[place] [id number] [address] 2021-09-22 2021-09-22 Outpatient ROGER KAUR [facility] [id number] Univers 15:00:00 15:00:00 ROGER ARAUJO zenia [facility] 2021-09-22 2021-09-22 Outpatient ROGER KAUR [facility] [id number] Univers 15:00:00 15:00:[address] [facility] 2021-09-18 2021-09-18 Orders Doctor KRZYSZTOF 1.2.840.114 [id number] Univers 00:00:00 00:00:00 Only Unassigned, DEEDEE 350.1.13.10 ity of [place] [facility] 4.2.7.2.686 Socrates as [phone] [address] 2021-09-17 2021-09-17 Telephone [facility] 1.2.840.114 9 [id number] Univers 00:00:00 00:00:00 Fracisco GARCIA 350.1.13.10 i ty of [place] 4.2.7.2.[place] [phone] Az dic[address] 2021-09-17 2021-09-17 Telephone [facility] 1.2.840.114 9 [id number] Univers 00:00:00 00:00:00 Fracisco GARCIA 350.1.13.10 i ty of [place] 4.2.7.2.[place] [phone] [address] 2021-09-14 2021-09-14 Telephone [facility] 1.2.840.114 9 [id number] Univers 00:00:00 00:00:00 Fracisco GARCIA 350.1.13.10 i ty of [place] 4.2.7.2.[place] [phone] Az dical NAL [address] [place] [address] 2021-09-14 2021-09-14 Telephone [facility] 1.2.840.114 9 [id number] Univers 00:00:00 00:00:00 Fracisco GARCIA 350.1.13.10 i ty of [facility] 4.2.7.2.[place] [phone] Az dical NAL [address] [place] [address] 2021 2021 Outpatient R [facility] [id number] Univers 10:00:00 12:16:20 FRACISCO [facility] 2021 2021 Office [facility] 1.2.840.114 [id number] [facility] 10:00:00 12:16:20 Visit Fracisco GARCIA 350.1.13.10 i ty of [place] 4.2.7.2.[place] [id number] Az dicar NAL [address] [place] [address] 2021 2021 Office [facility] 1.2.840.114 [id number] [facility] 10:00:00 12:16:20 Visit Fracisco GARCIA 350.1.13.10 i ty of [facility] 4.2.7.2.[place] [id number] Az dical NAL [address] [place] [address] 2021 2021 Office [facility] 1.2.840.114 [id number] Univers 10:00:00 12:16:20 Visit Fracisco GARCIA 350.1.13.10 i ty of [facility] 4.2.7.2.[place] [id number] Az dical NAL [address] [place] [address] 2021 2021 Outpatient R [facility] [id number] Univers 10:00:00 12:16:20 FRACISCO [facility] 2021 2021 Business Director Lab, Ang - Db [facility] 1.2.840.1 14 [id number] Univers 10:45:00 11:00:00 Visit Adele Chester [facility] 350.1.13.10 ity of [place] 4.2.7.2.686 Socrates as SUAD?BLEA [phone] [address] 2021 2021 [facility] [id number] Univers 10:00:00 10:00:[address] [facility] 2021 2021 Telephone [facility] 1.2.840.114 9 [id number] Univers 00:00:00 00:00:00 Fracisco GARCIA 350.1.13.10 i ty of [facility] 4.2.7.2.[place] [id number] [address] 2021 2021 [facility] 1.2.840.114 9 [id number] Univers 00:00:00 00:00:00 Fracisco GARCIA 350.1.13.10 i ty of [place] 4.2.7.2.[place] [id number] [address] 2021 2021 Telephone [facility] 1.2.840.114 9 [id number] Univers 00:00:00 00:00:00 Fracisco GARCIA 350.1.13.10 i ty of [facility] 4.2.7.2.[place] [phone] [address] 2021 2021 Patient Mendez [facility] 1.2.840.114 [id number] Univers 00:00:00 00:00:00 Outreach Jami GARCIA 350.1.13.10 ity of [facility] 4.2.7.2.[place] [id number] [address] 2021 2021 Telephone [facility] 1.2.840.114 9 [id number] Univers 00:00:00 00:00:00 Fracisco GARCIA 350.1.13.10 i ty of [place] 4.2.7.2.[place] [id number] Az dical NAL 044 [facility] 2021 2021 Patient Mendez [facility] 1.2.840.114 [id number] Univers 00:00:00 00:00:00 Outreach Jami GARCIA 350.1.13.10 ity of [place] 4.2.7.2.[place] [phone] Az dical NAL 044 [facility] 2021 2021 [facility] 1.2.840.114 9 [id number] Univers 00:00:00 00:00:00 Fracisco GARCIA 350.1.13.10 i ty of [place] 4.2.7.2.[place] [phone] Az dical NAL 044 [facility] 2021 2021 Orders Doctor KRZYSZTOF 1.2.840.114 [id number] Univers 00:00:00 00:00:00 Only Unassigned, DEEDEE 350.1.13.10 ity of [place] [facility] 4.2.7.2.686 Socrates as [phone] [facility] [address] [place] 2021 2021 Patient Mendez [facility] 1.2.840.114 [id number] Univers 00:00:00 00:00:00 Outreach Jami GARCIA 350.1.13.10 ity of [facility] 4.2.7.2.[place] [id number] Az dical NAL 044 [facility] 2021-09-03 2021-09-03 Telephone [facility] 1.2.862.622 [id number] [id number] Univers 00:00:00 00:00:00 Liz PRIMARY 350.1.13.10 it y of [place] 4[place]2.7.2.[place] [id number] Az dical [address] [place] 2021-08-28 2021-08-28 Outpatient R NEMO [facility] [id number] Univers 16:30:00 17:19:04 ADELE ity of [facility] 2021-08-28 2021-08-28 Office Jersoncata [facility] 1.2.840.114 [id number] Univers 16:30:00 17:19:04 Visit Adele [facility] 350.1.13.10 it y of [place] 4.2.7.2.686 Socrates as SUAD?BLEA [id number] [address] MEDICAL OFFICE BUILDING 2021-08-19 2021-08-19 Telephone [facility] 1.2.840.114 93 [id number] Univers 00:00:00 00:00:00 Melissa PRIMARY 350.1.13.10 ity of [place] 4[place]2.7.2.[place] [phone] [address] 2021-08-19 2021-08-19 Telephone Aly [facility] 1.2.840.114 93 [id number] Univers 00:00:00 00:00:00 Melissa PRIMARY 350.1.13.10 ity of [place] 4.2.7.2.[place] [id number] [address] 2021-08-19 2021-08-19 Telephone [facility] 1.2.840.114 93 [id number] Univers 00:00:00 00:00:00 Melissa PRIMARY 350.1.13.10 ity of [place] 4.2.7.2.[place] [id number] [address] 2021-08-13 2021-08-13 Telephone Low [facility] 1.2.840.114 93 [id number] Univers 00:00:00 00:00:00 Melissa PRIMARY 350.1.13.10 ity of [place] 4.2.7.2.[place] [id number] [address] 2021-08-10 2021-08-10 Telephone Aly [facility] 1.2.840.114 93 [id number] Univers 00:00:00 00:00:00 Melissa PRIMARY 350.1.13.10 ity of [place] 4.2.7.2.[place] [id number] Az dical [address] 2021-08-10 2021-08-10 Telephone Yrn [facility] [id number] [id number] [facility] 00:00:00 00:00:00 [facility] 2021-08-07 2021-08-07 Outpatient SHASHANK MENDIOLA, [facility] SLE [id number] SLE 00:00:00 00:00:00 NADYA 2021-07-28 2021-07-28 Telephone [facility] 1.2.840.114 93 [id number] Univers 00:00:00 00:00:00 Melissa PRIMARY 350.1.13.10 ity of [place] 4[place]2.7.2.[place] [phone] Az dical [address] 2021-07-25 2021-07-25 Letter Neurology [facility] 1.2.079.591 6168 [id number] Univers 00:00:00 00:00:00 (Out) HEALTH 350.1.13.10 it y of [place]2.[place].2.[place] [id number] [facility] [address] OFFICE BUILDING 2021-07-17 2021-07-17 Telephone Billy Lu [facility] 1.2.840.114 [id number] Univers 00:00:00 00:00:00 Melissa PRIMARY 350.1.13.10 ity of [place] 4.2.7.2.[place] [id number] Az dical [address] 2021-07-13 2021-07-13 Transition EVE KilpatrickTracy 1.2.840.114 [id number] [id number] Univers 00:00:00 00:00:00 of Care Blankasa Cecilio [place] 350.1.13.10 i ty of [place] 4[place]2.7.2.[place] [phone] [facility] [address] 2021-07-13 2021-07-13 Telephone [facility] 1.2.840.114 92 [id number] Univers 00:00:00 00:00:00 Melissa PRIMARY 350.1.13.10 ity of [place] 4.2.7.2.686 [place]iall ISADORA [phone] Az dical [address] 2021-07-06 2021-07-10 Inpatient U BILLY LU [facility] NILESH [id number] Univers 20:21:00 18:16:00 ity of [facility] 2021-07-06 2021-07-10 Hospital Billy Lu 1.2.840.114 [id number] Univers 20:21:00 18:16:00 Encounter Melissa MARK 350.1.13.10 ity [facility] 4.2.7.2.686 Socrates as [phone] [facility] [address] 2021-07-07 2021-07-07 [facility] 1.2.902.626 [id number] 3939 Univers 14:30:00 15:30:00 Joss ICAL 350.1.13.10 it y of [place]ENC[place] 4.2.7.2.686 Socrates as BLDG [id number] [facility] [address] 2021-07-06 2021-07-06 [facility] [id number] Univers 10:30:00 10:30:00 ADELE ity of [facility] 2021-06-07 2021-07-04 Hospital ER Rony Shin [facility] [id number] 19:44:00 14:34:00 Encounter Jameson Kuo Kanwal Mary Kate Sosa [facility] Clary Ballard Umar Moon, Marc R 2021-06-07 2021-07-04 Inpatient ER LOGAN RUSSO SLE Surgery [id number] SLE 19:44:00 14:34:00 2021-07-03 2021-07-03 Surgery Beronica [facility] [id number] 15:05:00 16:05:00 Angela Torres [facility] 2021-07-03 2021-07-03 Anesthesia Mitchel [facility] [id number] 14:49:00 15:35:00 Event [facility] 2021-06-30 2021-06-30 Surgery Krzsyztof Ryan [facility] [id number] 19:35:00 22:24:00 [facility] 2021-06-26 2021-06-26 Surgery Krzysztof Ryan [facility] [id number] 07:30:00 11:59:00 [facility] 2021-06-25 2021-06-25 Anesthesia Marissa [facility] [id number] 23:59:59 23:59:59 Event Fadia [facility] 2021-06-18 2021-06-18 Anesthesia Asad Santana [facility] [id number] [facility] 07:58:00 14:52:00 Event Vahid Link [facility] 2021-06-18 2021-06-18 Surgery RussoLogan [facility] [id number] 08:00:00 14:45:00 [facility] 2021-06-16 2021-06-16 Anesthesia Argueta Calekatja Sandoval [facility] [id number] 11:58:00 13:03:00 Event EpifaniobrettguilleRobbjane [facility] 2021-06-16 2021-06-16 Surgery Donte [facility] [id number] 10:30:00 12:00:00 [facility] 2021-06-09 2021-06-09 Outpatient BCM BCM [id number] [address] [place] [address] 00:00:00 23:59:00 Aidee 2021-06-08 2021-06-08 Committee JOSAFAT Murcia 1.2.840.114 [id number] Univers 00:00:00 00:00:00 Review Bertrand Ivy MULTISPEC 350.1.13.10 itLorenzo 4.2.7.2.686 [facility] [id number] [facility] AND SONI [address] [facility] 2021-06-07 2021-06-07 Outpatient BCM BC [id number] [facility] 19:44:00 23:59:00 Snehalbernabe jaden maya Janicemagy cerda 2021-06-07 2021-06-07 Orders [facility] [id number] 00:00:00 00:00:00 Only [facility] 2021-06-07 2021-06-07 Travel [facility] [id number] [facility] 00:[facility] 00:00:00 [facility] 2021-05-26 2021-05-26 Telephone [facility] [id number] 00:00:00 00:00:00 [facility] 2021-05-26 2021-05-26 Transition DAKOTA Bennett 1.2.840.114 [id number] Univers 00:00:00 00:00:00 of Care Rakan Nelson [place] 350.1.13.10 [place] [id number] [facility] [address] 2021-05-25 2021-05-25 Transition DAKOTA Bennett 1.2.840.114 [id number] Univers 00:00:00 00:00:00 of Care Rakan JONESY 350.1.13.10 [place].2.[place] [id number] [facility] [address] 2021-05-15 2021-05-22 Inpatient X WILLIAM [facility] NILESH [id number] Univers 13:03:00 21:15:00 NEIL itzenia of [facility] 2021-05-15 2021-05-22 [facility] Dangelo Ibrahim [facility] 1.2.840.1 14 [id number] Univers 13:03:00 21:15:00 Encounter Neil Thomas 350.1.13.10 ity [facility] 4.2.7.2.[place] [id number] [facility] [address] 2021-05-15 2021-05-22 Inpatient X [facility] NILESH [id number] Univers 13:03:00 21:15:00 NEIL ity of [facility] 2021-05-18 2021-05-18 Patient Mendez [facility] 1.2.840.114 [id number] Univers 00:00:00 00:00:00 Outreach Jami LUBIN 350.1.13.10 i ty [facility] 4.2.7.2.686 Socrates as SUAD?BLEA [id number] [address] MEDICAL OFFICE BUILDING 2021-05-18 2021-05-18 Telephone Twin [facility] 1.2.840.114 [id number] Univers 00:00:00 00:00:00 Bertrand Ivy MULTISPEC 350.1.13.10 ity [facility] 4.2.7.2.686 [place] [facility] [id number] [address] [facility] 2021-05-15 2021-05-15 Office Nemo [facility] 1.2.840.114 [id number] Univers 11:00:00 12:33:54 Visit Adele [facility] 350.1.13.10 it y of [place] 4.2.7.2.686 Socrates as SUAD?BLEA [id number] [address] OFFICE [facility] 2021-05-15 2021-05-15 Outpatient R NEMO [facility] [id number] Univers 11:00:00 12:33:54 ADELE nuñez [facility] 2021-05-15 2021-05-15 Outpatient R NEMO [facility] [id number] Univers 11:00:00 11:00:00 ADELE nuñez [facility] 2021-05-15 2021-05-15 Telephone [facility] 1.2.409.469 [id number] Univers 00:00:00 00:00:00 Adele HEALTH 350.1.13.10 it y of [place] 4.2.7.2.686 Socrates as SUAD?BLEA [id number] [address] MEDICAL OFFICE [facility] 2021-05-15 2021-05-15 Telephone [facility] 1.2.838.086 [id number] Univers 00:00:00 00:00:00 Adele HEALTH 350.1.13.10 it y of [place] 4.2.7.2.686 Socrates as SUAD?BLEA [phone] Az adam [place] [address] [place] [address] MEDICAL OFFICE BUILDING 2021-04-07 2021-04-07 Telephone [facility] 1.2.840.114 [id number] Univers 00:00:00 00:00:00 Thurston A MULTISPEC 350.1.13.10 ity of [place].2.7.2.686 [place] C[place] [phone] [address] [facility] 2021-03-25 2021-03-25 Telephone [facility] 1.2.840.114 [id number] Univers 00:00:00 00:00:00 Thurston A MULTISPEC 350.1.13.10 ity of [place].2.7.2.[place] [id number] [address] [facility] 2021-03-19 2021-03-19 Telephone [facility] 1.2.840.114 [id number] Univers 00:00:00 00:00:00 Thurston A MULTISPEC 350.1.13.10 ity of [place] 4.2.7.2.686 [place] CENTER [phone] [facility] [address] [place] DIABETES CLINIC 2020-08-28 2020-08-28 Orders Fuentes [facility] [id number] 00:00:00 00:00:00 Only [facility] 2020-08-28 2020-08-28 Abstract Fuentes [facility] [id number] 00:00:00 00:00:00 [facility] 2020-08-06 2020-08-06 Telephone Freddie [facility] [id number] 00:00:00 00:00:00 [facility] 2020-08-06 2020-08-06 Documentat Freddie [facility] [id number] 00:00:00 00:00:00 [facility] 2020-08-06 2020-08-06 Abstract Frazier, [facility] [id number] 00:00:00 00:00:00 [facility] 2020-08-04 2020-08-04 [facility]i [facility] [id number] 00:00:00 00:00:00 [facility] 2020-07-31 2020-07-31 Outpatient Nola HUBBARD [facility] [id number] Univers 10:00:00 10:00:00 [facility] 2020-07-28 2020-07-28 [facility] [id number] 00:00:00 00:00:00 [facility] 2020-07-28 2020-07-28 Abstract Frazier, [facility] [id number] 00:00:00 00:00:00 [facility] 2020-07-25 2020-07-25 [facility]calli [facility] [id number] 00:00:00 00:00:00 [facility] 2020-07-24 2020-07-24 Documentcalli Frazier, [facility] [id number] 00:00:00 00:00:00 [facility] 2020-07-24 2020-07-24 Documentcalli Frazier [facility] [id number] 00:00:00 00:00:00 [facility] 2020-07-24 2020-07-24 Abstract Frazier, [facility] [id number] 00:00:00 00:00:00 [facility] 2020-07-22 2020-07-22 Outpatient Nola HUBBARD [facility] [id number] Univers 09:30:00 09:30:[facility] 2020-04-24 Outpatient Nola HUBBARD [facility] [id number] Univers 10:45:00 10:45:00 [facility] 2020-04-16 2020-04-16 Office [facility] 1.2.800.962 [id number] 12:56:21 13:26:21 Visit Alanis Garcia 350.1.13.10 [place] 4.2.7.2.686 chaddángela [id number] [address] 2020-04-16 2020-04-16 Outpatient R HERMELINDAARMIDA [facility] [id number] Univers 13:15:00 13:15:00 ALANIS nuñez [facility] 2019-02-18 2019-02-[address] [id number] Memoria 03:46:00 22:27:00 Inpatient r [facility] [address] [place] TELEMETRY [facility] 2019-01-26 2019-01-26 Departed Fidel Leonardo. [id number] [facility] 01:39:00 06:10:00 [facility] [place] EMERGENCY DEPT 2018-10-09 2018-10-[address] [id number] Mem[facility] 09:44:00 21:45:00 Inpatient [facility] [address] [place] Patsy nn 2018-01-22 2018-01-22 Emergency E MHSE MHSE 7532 MH 16:17:00 16:17:00 [facility] Results Test Description Test Time Test Comments Results Result Comments Source AFB culture + smear (non-sputum) 2021-08-07 10:55:07 Test Item Value Reference Range Interpretation Comme nts Result (test code = 6463-4) No acid-fast bacilli isolated in 42 day s AFB Smear (test code = 38407-0) No acid fast [facility]illi [facility]2021-08-07 10:55:07 Test Item Value Reference Range Interpretation Comments Result (test code = No acid-fast bacilli 6463-4) isolated in 42 days AFB Smear (test code = No acid fast bacilli 09407-5) [facility]2021-08-07 10:55:07 Test Item Value Reference Range Interpretation Comments Result (test code = No acid-fast bacilli 6463-4) isolated in 42 days AFB Smear (test code = No acid fast bacilli 74259-6) [facility]2021-08-07 10:55:07 Test Item Value Reference Range Interpretation Comments Result (test code = No acid-fast bacilli 6463-4) isolated in 42 days AFB Smear (test code = No acid fast bacilli 17894-0) [facility]2021-08-07 10:55:07 Test Item Value Reference Range Interpretation Comments Result (test code = No acid-fast bacilli 6463-4) isolated in 42 days AFB Smear (test code = No acid fast bacilli 89676-5) [facility]2021-08-07 10:55:07 Test Item Value Reference Range Interpretation Comments Result (test code = No acid-fast bacilli 6463-4) isolated in 42 days AFB Smear (test code = No acid fast bacilli 68206-3) [facility] ([facility]-SPUTUM)2021-08-07 10:55:07 Test Item Value Reference Range Interpretation Comments CULTURE (BEAKER) (test No acid-fast bacilli code = 1095) isolated in 42 days AFB SMEAR (BEAKER) No acid fast bacilli (test code = 994) seen Fungus culture + [id number] 01:03:45 Test Item Value Reference Range Interpretation Comments Result (test code = No fungus isolated in 6463-4) 28 days Fungus Smear (test No fungi seen code = 1406) [facility] [id number] 01:03:45 Test Item Value Reference Range Interpretation Comments Result (test code = No fungus isolated in 6463-4) 28 days Fungus Smear (test No fungi seen code = 1406) [facility] + [id number] 01:03:45 Test Item Value Reference Range Interpretation Comments Result (test code = No fungus isolated in 6463-4) 28 days Fungus Smear (test No fungi seen code = 1406) [facility] + [id number] 01:03:45 Test Item Value Reference Range Interpretation Comments Result (test code = No fungus isolated in 6463-4) 28 days Fungus Smear (test No fungi seen code = 1406) [facility] + [id number] 01:03:45 Test Item Value Reference Range Interpretation Comments Result (test code = No fungus isolated in 6463-4) 28 days Fungus Smear (test No fungi seen code = 1406) [facility] + [id number] 01:03:45 Test Item Value Reference Range Interpretation Comments Result (test code = No fungus isolated in 6463-4) 28 days Fungus Smear (test No fungi seen code = 1406) [facility] + [id number] 01:03:45 Test Item Value Reference Range Interpretation Comments Result (test code = No fungus isolated in 6463-4) 28 days Fungus Smear (test No fungi seen code = 1406) [facility] + [id number] 01:03:45 Test Item Value Reference Range Interpretation Comments Result (test code = No fungus isolated in 6463-4) 28 days Fungus Smear (test No fungi seen code = 1406) [facility] + [id number] 01:03:45 Test Item Value Reference Range Interpretation Comments CULTURE (BEAKER) (test No fungus isolated in code = 1095) 28 days FUNGUS SMEAR (BEAKER) No fungi seen (test code = 1406) TISSUE [id number] 12:44:09Surgical Pathology Report Case: [id number] Authorizing Provider: Logan Russo MD Collected: 06/18/2021 11:41 AM Ordering Location: [facility] Received: 06/19/2021 03:44 PM PERIOPERATIVE SERVICES [place] thologist: Tom Paige MD Specimen: Mass, MITRAL VALVE [...] IS RECOMMENDED. Signing Pathologist Direct Phone Line: [phone] signed by Tom Paige MD on 06/24/2021 at 3:29 [id number], [id number] valvePerformed.Theinterpretation of this case included the use of immunohistochemistry or special stains.BLOCK A1- [employer]OWN [employer]MA JOHNSON, AFBControl Slides Examined: In-house known positive controls were evaluated along with the test tissue. These control slides run alongside of the patients sample show appropriate staining. Internal positive and negative controls when available are evaluated Immunohistochemistry technical testing was performed at [facility], Pathology Laboratory where it was [...] qualified to perform high complexity clinical laboratory testing.[facility], Department of Pathology, [address] [place] [address], [facility], [address] [place] [address], [facility], [facility], [address] [place] [address], a. Received in formalin labeled with the patient's information and "mitral valve mass" is a 1.5 cm in length by 0.3 cm in diameter robert-pink tissue, which is submitted in toto in cassette A1.MP (resident)Tissue [id number] 09:50:09 Test Item Value Reference Range Interpretation Comments Case Report (test code Surgical Pathology = 104) Report Case: [id number] Authorizing Provider: Angela Loco Collected: 07/03/2021 03:04 PM MD Brian Ordering Location: [address] Received: 07/06/2021 09:08 AM Service Pathologist: [...] clip x 1 DIAGNOSIS (test code = [id number] 3220) FuZzEwMzNcZnRuYmpcdWMx IHtccnRmMVxlcGljOTYwMV smukAdOPRxeHVnJ1Gdmlzu RPrhGE8kHA2uoCgmtWOgzL WrAAApOtWdw9eqv923hEYm x6cfRJSQvntneEx1oTlnR2 1gm8E8BvboX03tlJHdUVP7 ZJNfGAUenUElQBUsJFF8XQ XasGUvF9whWATuRN7vgeki WGlcXDpqCWDvmAQ9YBAplT DaQ1XpVHErJEowQAKdszw9 OuWpZa3vdZBvvQvpSXwnLH GjTREmRFqsFWNmRfRuYA6i X51QY34bJFILB7EXAAKCAL wYTAPFIG3FO4c8MKGturUv LSAgVFVCVUxBUiBBREVOT0 3RKUYcgxlmGCJhPo0wB54Y X43jDTSIH7dCW4YFR4DWDM jICjRDG2jWTAlrXdrZLTGZ YbjrGQUdLD1pVJ5JTEHZHY mIYIYMEXoJWH1XKuWYGkGL YRAOINXNFVENLA9KJNIpfW FyICAtICBORUdBVElWRSBG I2RrJRsMVM9LQeCQLNERBS LOLITPNIOzQ3JzLYZJQMjB HM4KRTulVFVspQGrNYYwFZ IBVJ4CLEYTPOvIJF9RL5MB YmAPDpkrWP0KRDDsONMDA6 BTWTpccGFyICAtICBNVUxU SVBMRSBGUkFHTUVOVFMgT0 FqZNCDEVnUMtQKIFNYY06G XHBhciAgLSAgTkVHQVRJVk TfGg1EVAgNX2uoY1AOSVEc NZdYXAnUZ2dLHF1VJS3AKS rADzXUC7tfuYIwZJYxceSk zZKrSMReUOIIZE7SLVBIQr EOW6HWSmPZYTDDRCcWYBDL LU6YR2p8KEFumlMqKCWcWF MULOaUJTSzFfCOT17JIzVY HV2NPDWRFuPUBZAhBJTUAt 9RXUkdVQPaRT1jGH0SF1BK SVZFIEZPUiBISUdILUdSQU WZJQNGU6VOSBFJITLGLyPE ENjCP24VWjOCPLWmlt49TI R4IhTtz7N5SYX5BPAfXUPv h1wkAPRktMRvLqSyTbXtWa UyIegqqHIqUPOyPuVbx1uu q930fCWbf3kgZIItVhM3jZ RePMXzkYMbM002MKUyEUzz o6sle5LzMSNjmSIyg2X1TD CRykjztXg0oSyhX30ub8N8 MnsdD3faGDSeYIHmV4XpVW 9sKCMfYhz0OQE9FYZ9OCVd MXRhV7BrJI2yJUYqeKUpID o3o9iskPgxJSEyHQF1p3pk XPzuecFjDD2oaf9fxQt3u0 xjczEgRGVmYXVsdCBQYXJh E8PbxDmqFl9ioVx3uPrrBj sbVZV2Eyr4LE3czj67lyc4 oAboZOUjxwavJqW4GJpkYE BpbubfDWw5OEfgHUUjuTD0 QWOhvCRyS9WsWSEzBM3mur a2FVA8FUlyANUsYhK1ZDPe hFIqVCXclZyuHQhoz294AJ S9HzPzTV4lE9Axn8L1vJ8t aXRcZGVmdGFiNzIwXGZvcm 9leIDjTPead7VdDNT7xpB2 mOAerAPfNWTvRmY4ELneSZ 9nzv24AEReYFX0yz8dbPOb vExogkXcmNBsBAqyI6SqBH Pmf129ZCMvT2PkTXImk7D6 kmMgFoTmMVGksBB5fuO6QZ DjVR5dbtqng9enKDrgOOwo RAXyslT3oyC7UQSknOQlA3 QsmE8xUWXjEQ1oozvlx4eb SMH4ANhoXHVqQKL0VmMsJG Epa5Bdqqk8OpAzr9DxuQKb TBtpH53dr525TUJpmtKdY6 xwbGFpblxwbGFpblxmMFxm aqI6RHPgGLpbjrquGSMnPJ gfV9lzSvIpUWNguWlnNZkc i8MsUFSoFKCnAgNpjVHmOH FcVcr4RDDrpVQmHKKaUuCg U3lefjtcYaVOYOPma2dbM2 gbiFZYyGYgY5VlRUdbmpNp JMweLCojGRRqDAA9WH2xDG LaLMCdzc49 CPT Code(s) (test code r0iozMJhKBYjpUM5FbLpIV = 3357) Sdv9sdd0CvuUPfmXOnWMqx rPPoijKszz89pSD1yU98TE 6mSGQeNuW2LPWqyyS3Wdo5 QUVfOSThxUQrL715p3wsk9 veblKstMN9uZfkPMJqecfn ZbU4DXqbYWBmijjjZQa3BG ygHQQzzUP2JCUasRXtT2Ko KWCpAR0aror5BSP6HHkrND AhSyD4WBFolJPbRAPqjBoo MDoiq213ZCI3WkAdINSfsv VfcXmvbT9fFxSvWSY5MNXx IVm0OYDkdd9= CLINICAL HISTORY (test a3ztrHBgWDFpnIJ7UbCzLH code = 3356) Aou4nyo0AeeNCdkOYyREet aTVyksLkcy67hTU4xI74SF 8nBZLjEbR5OVOlwyA5Xai6 IDPcHTHadHCtO682s5xni7 dfwoFkjVZ1SRUvHETkE1Wi YE0bVBJcfGUmU36rhUAtNC I6KQXrWKAkdBVjKDIoSJN2 ZJLqlSBhT8rxFIAbKJ5sfk ltGTxcLGwaFEYyxBU4CTAi hAYnS9GtIKQjOFloMZMkaq n2EpFyKo7ebDVawMwyFYps YXJkXHJpMVxwbGFpblxmcz IhBOLsQOCUlh6lKCUnOnes tPJkW2jrEU4yrTzhFMT5id UtYRRsNphzUEXdun5kLOJp VgbxqQSzB3hxKJ2ghFwwXU E1kUZbWZWnzg1= GROSS DESCRIPTION (test k4uduVPjZLHptBGZDFTpDy code = [id number]) ounnSnPVUupPBeB0Oovknf SRgoMA3mXP3hyAryqLIxlC RmUQ7TVMJgNwAzKIUpkYYz xiDlNqMtAFChaDDwwPJ2IR WiKZ8klxpsQZglFXwdALXn eaH2VWQziXToW6GjEBQdIQ 2tebdrMCP9DYyluQ1jqwHD JopmWq4cjROfjHjyEuXfGr NoYXJzZXQwXGZuaWwgQXJp KXs6tA3YJkuiT42ue4M8Ct s4FDFeFDBaB6RrCG1bPDSv gKLbP30CBidyWBE6LGDHRz cwRMVnCK0Jt2hdUMGdkBMc EHH6PZzjfWMvQEXkODJkSU h0AWYuTPctiVOxWE1doFmb IwptgAdik1WebEAuGUvkRZ IiZHPhSUphYFPrDU9TQsEu YOjJIbfkHEnxJvK3LMi6NU YZBdAsSjUfUtmkERW7AHdp UGa6HSn4NVfFVlB8VMU7CF JrKEtpKREdRfqeGHp6YGRb XFxmIEFyaWFsIFxcZmwgXF liO89krOaybT7kOS3yQJ4n qOHcZXBffU0aSU4kH9CmgG 0uXHBhciANClxlcGljTmVz dERvYzEgDQpcbHRycGFyXG xpbjBccmluMCANClxsdHJj aFxjZjFcZnMyMCBSZWNlaX KqIQJjkrHvw0GvGBdllyWr YWJlbGVkIHdpdGggdGhlIH RvfLspyxWnX1G3xzHbUC0z TBIvDTJeL4KgJRRjC78lKS KbiA9hIVLyVT2oGVb0YRCu JZGkRuzriX4imADsLLNvkG 7bFDGsU3AyDvKad47cqCO3 rzSxBuEqSZQoji4nxR1iVL Fucx6hYTOpp3Z0GNKpa9R1 ZCSqXR48MMsxSX6lCHmhVB 4xIGNtLCAwLjYgeCAwLjMg jRBbLwXoX42cLwRsENrqGO IdCZGkyKCiAFjyKDM3Ec3t zCLyVNVsntQ7x7ZtFPaqOZ XeAttcYJDgRMkjqMRfLV0O BOHzYCfvkuAbZL8KLMUpRN mmOEWxiKUWPQN5AS0bDXpi bIXnyncoMWWbV1DmH9Meva DpeICuBLGpxsMkq1qnXLS0 XHNsbXVsdDBcZnMxNlxwYX S8WUu4KNgvHHMvU3IiA2Ds KBxiYYT4CQLdUsTfNBCzEN AKQeLyRhHuHlG4Cao9CsUe EOi8TSpoM6ISLUQmHRM4QM T2XHP9GeB3NZu5TTOZRu9w TNJlMTL8TsM9RYE7JpN3EW xcdCAyIFxcZiBBcmlhbCBc QDJgPDdjxwT8DFCxEGHqaT jnxY9nRo6nCU6ogLChTVFq qK1fYS8wWxqzaBRiQFQvUH 6xlW7oFwgvVZRfVEgvWXJg N15xo2FWq5XwAM3UMHa1gw CmifygmU4aEHEqfbFkIQpa kYLbB5daC2MhOBVmWhBhMl TiFCr9EWPqeX6uLs2mmNTw uY0koNVxDLmfDCW5tDTlUM VnRAZpAMToIZ11DYrSHDLt bmFtZSwgbWVkaWNhbCByZW NvcmQgbnVtYmVyIGFuZCBc qQogBrGqCEt6M9MwoRjuUE Uwc4heeq9joRlfyRSrb7Zv awAnqbkuAEHwBGFgl84zdK Y1ycHaAxQhtLh3iRXhXBN8 TQ8lgKgdewxivOJqVZi4pH OtBKKgUvXrgBzum4XmOGjz LjQgeCAyLjEgeCAwLjQgY2 1vdP8zJDuccfVnEAHuEU5z POQuPCXsyXWnnR4fsaHrmp ZplICvuEW9HWEdoA3pnM20 reDdrpMKGB9itENfGU9UCR BhciANClxjZjBcZnMyMiAN ClxwbGFpblxlcGljTmVzdE OhGlTlcUkdeG76OGAuuOBe YKY3CX0vNQGblgsfGSJkXA GwJOC3CTfkbB59bMEeEACe ZBSggOQkmY3Ns7gwMAToaX NaXIJ7XCggsLDsIRUbBIHo LKobNxSaA9OISSOoUnXxMB S7CIKbTVw6VTr0II8NQhUr AOPhFAAtSrR8NCOuYPv0GX mdKV8PYCI4Twn1RID2JSN3 NTMyOCBcXHQgMiBcXGYgQX WzDAruGUhdhVEvXH2ueMtp wsR3BAEaYSxyZQLvUGNddA tnGXZYu9mrxhQsBCAiE7j6 A4AuF5QkZLzlPp5yfCUoSY 3PJJOxtICDCJX1CV3hLJTL ClxsdHJwYXJcbGluMFxyaW 1yDA3UHDq2rqDkKXToQDbq tdRkHSWzN9CkdwNrNJrcGK Dpug4urShqYXcaLwOmQDWi s1p2hSZ4lLBumNO8tAQseL jjJrTxGI1vrAUcRD8iAZwq OAsrupXka6FnSB64jKIfwk NgsrTtTTL2EbStKQvdPQCr s5d6mNqbN53jx20avfrgnZ CtMKMgSE0jxK5xPcAevpPo S93aq6enlKJuk1TsqTYubT lwbGUgdGFuLXBpbmssIHBl UOUdG6KwSGJuJOPne3C5VG Nlm1D6JWZwUa71UIadIv4u VIpeJS74ACSrDAlvGKJtS1 TzN8T6MVreITXFbCOjf0Uy K1drOO9uwVIpm4OqdXq7jC TbNIrdMERhaW2rgI6bIaKi XHBhciANClxwYXIgDQpcY2 OyRMPlAiAbNDtfjHcymZ8r JWEfW89dh0IMb3IfFPNcUW jhu2bsdCypp4TdwMVwOCrk NLFjoMFhGKhvyK8gZfTuu5 avoRv5CLtsrnQ2KKStzd6M CnjpYorxwAsll1SheLLtJB ddANHoWDSiTOepLLJcWU5R IaNgGWaNWcxnUZcrRuS7KL s7SOQPHpOdJkXeMdyeGZM7 DgXoKAn7HJs5PRjSYxA8UJ Q9KXIzAwPnYXDyHvfuRHg0 IDIgXFxmIEFyaWFsIFxcZm leSYwfT22dFnIgLgveeXAs baZZYyMFv6i7bVryO66sn7 8oCJCKxcUae5ZihxTdLrzq PMJiWFpaZKJkH02lm8IJy2 PoXB7QWAr2wuHmvqdyhE6k VYGfinKmCGlusIBhD4yoN0 XuYFQmMdIbSsQyGFw0EGZu cT6zHe1hzNUvwN8dvUMcYD jkEBO7kQUnAIMePKXxOGWg IU77KQwVOLPbgsRwQLujiI VkaWNhbCByZWNvcmQgbnVt YmVyIGFuZCBcdTgyMjAgXC x8S3KphEdvVTHad9trvr95 wjIty7TgwsLkJUXgdCIlYT 0tMmtobI47WWAkSQRnQLSy aVtrCUlxMsMxxxXdH04by2 kfdFTdq4QayPZfuFatsIRj dGFuLXBpbmssIHBlZHVuY3 KdTJTiGSQxi9S7FRSub7X6 QOBnNn4nHMcpOo3wEMgrEM 27IHHrRDbcYBVeF8VqS2U7 QWavWUOXuWCdd3LuQ7dxBM 0haNRjo6SmvFl9jLPvMMzd NYOfwL3kfC0dVLWnKVXqVY NmndSYQebqGMBeFBwFt3Gc jIlvHDBiY5g2c76yD6glcB ApJASLOKC5dYPyjmKpcRHc FI2ONXBlkaJHMgqmDmDtTy MyMiANClxwbGFpblxlcGlj WwLbyBWeEsGxfLslxJ54IJ SndZWfFCC3ZH6iWYDgfjic CMDpFRXdLWL4OAkxoW45uD IrPKVoQWWhiDPujB7CLYSo ZBP5JKvhaH60lNOvVD9HAF YjIBJ1DSDiwPAwDCR6FX8g fQ0KfQ== MICROSCOPIC DESCRIPTION h6gkwBPgGIIuwIP6OwYqIL (test code = 3371) Gva1gfr0WwsBHonESbHGjb bMEakcBpti73tEA1kL60BF 9fBEJjEmX5FKFfolW6Xub6 MQYsHEXraIDlL714y2qik2 poajVkgLG7wLwaLTEpvtqw DkW8BBmiBYWqzgmvDLj6XB hkIPYsvVD0KJSseWFbM2Ss XBVmXY1pjbk4GAA7RHzoVD LvXgF7KPHnvQXoZSWsmSww MFjao530LSG3SuAwPWVkcw KrbHqgnO2xMsLrANTTTVOu r2DbOVTdYGBqmxtfKYGiXG Bhcn0= [facility] [id number] 09:50:09 Test Item Value Reference Range Interpretation Comments Case Report (test code Surgical Pathology = 104) Report Case: [id number] Authorizing Provider: Angela Loco Collected: 07/03/2021 03:04 PM MD Brian Ordering Location: [address] Received: 07/06/2021 09:08 AM Service Pathologist: [...] clip x 1 DIAGNOSIS (test code = [id number] 3220) FuZzEwMzNcZnRuYmpcdWMx IHtccnRmMVxlcGljOTYwMV zzapAxRFMumCJlS7Lqtuqu NScoAJ3pYI6acHbriEEpeM XmNREoRrXxb1tgj155pFFn p9abBTJQdqtuuTi9oHevA5 2ik7S7FvfaG79yiYDsWAN8 OQSdJTCkeJUwEGVbSUG0BW AjkBRwW5axZSQxKA8mwgji AVgdZEwqYLZnvEW9BHJrhX KzC7PjUHUeYCruHUVtukg5 McPaEr5wyFQirMufWXyvUC GiCKCxYUtxQKNlEgYxQK3r L26ZR89wGNXXL7BMBIXUXL cVCYVWXC0WA2o6WYDyasJh LSAgVFVCVUxBUiBBREVOT0 6RCCRdnnhoWUXlBh8xB52A E09cULQRZ5qXR4UVT8DBZL yQYpTIP0oKLWamEpjOZRNV SotnGZTjSM0fME0YNGUPPJ jPDERDBWuJFW9QKgLMXnGS RYFYTSNPAXPXLO0QGETtlL FyICAtICBORUdBVElWRSBG T2OgEMxPKA6ANfZPAGRQSM TBIZXKZLRlB4CtMBFWGOpK AH2UIIkqELJcfOQwDPGsBV NOGX9BLELQANvHLS9MB9QA NpTFOpogEY1OIKHnKYWHH6 BTWTpccGFyICAtICBNVUxU SVBMRSBGUkFHTUVOVFMgT0 WrJWPBYKwCMrUCMQIME18J XHBhciAgLSAgTkVHQVRJVk HpZz7LFDpQZ4dtI7PVPYRe QJcLKIcRJ4fURR4CEE3WCT oYVgLHI6vuqNLcTAKztpUb pLRpYVUkWSDHBD7TICMZAz DBA8ITGfDKISVSTIqXCZNX QE6PC1g2UBDczmRaCMDfTO ZSQWfZAIZlQeFQM99DFcOH MW9IRCLNWeTLPBJvYUYNNq 3XVSadLROkXS2gIK4UB4RH SVZFIEZPUiBISUdILUdSQU FHGWKDS2PSJOSQNYPYUaWL KHvDP06ODaLUSQFhbo20RY B5YbHko9Z1BUH3WHIkWNDi f1gpSJTwnMVrCvIpIeVwDq FmCapgdZYiBZCgEzNyx8fs w269rXKqj5coJPCmKaS6eX MlPSPpyFDcL247DTQsHRpq q3dor3IvNFXjlCYqz2W3BF KXobktwJj2mDqkQ60xm5W8 SreyN8hlBOMuUGDuK9InSY 7gSXQyOxm4CFX4FHY3PHPg EECiN1BeXT1oXOHusUVnKO m5a6sshHwhODFvIUN9a4ll ILviszGaCV5rqn7veXw4m6 xjczEgRGVmYXVsdCBQYXJh Z7UtqLrtEj4olYn9eVsfVa hjNAD8Liv4NC1dlx76ifa0 dPtcSKLqqyrcZkZ5XVzcSY AsbzdhGNe1RFaoBBXgpUD1 AOPnmBCkK1GkFCCuKK5lpd l6XZD2LZauKFChCtM3TGNb lFFjENEngFojHIqav962XJ Z1QpSiQY0sA6Mpe5J7oO7o aXRcZGVmdGFiNzIwXGZvcm 6swLXvXWkxs1KcJJO9erE5 vZPnhQLoFWYaPwV1TGpiKU 5dwv80JYQcVQD2yq8ckONe bZlqcjIzxDWvNBjiX2DtLO Coe042TKYrM4KpWKDne4Y5 rpEtMgPtNMRyyPT1qqK5JU OvJX7qhskgh4soILqvWJtx DXMfkbD8vdR2YBQmdGFzA5 YtkV7oJNXcTY1hdqcpw8fm YFI1SQizYDUyVFQ2FrGnHU Mra3Gjhqb4KkHxw6BuxXMu BLdeD23bw790IDOjzgYzN3 xwbGFpblxwbGFpblxmMFxm spQ9ENDxNElouuxyKJOwCQ cjN0tbIkOlKDMhnBeyWKii n0ZiTNUsSJPjMbVbnGWlEJ OcXlf1EFWfmBLwFBOtChSr E4przvzrPsIIKDSud1ntP6 oyeNXKqLCrV3ZjTKqotfRn UZpaKIzyKASpLLE5VZ8sYT ElKJUnck31 CPT Code(s) (test code s7ocxGNpYQXwuMS3HePgLG = 3357) Bul8qvj9LanUUqjDVnFErz lHDdveOaoe24sLO4sM09DY 3tOHWcSlE1KGPrisA9Woj7 BHKhJBByuVCeS257u3uhb2 cvdiGczHH1rEpmMKAnrkaz MzN5EEphQZYwrqhlAVr2DW alKWObwRT8UMGhkBIjY4Sq AEUhID6dvtu6GQI2NJbnWF OpGuR4XLVqwDUiEWWhcYns VHcxh331MVR1VqQzDZRbip MhgYnynH9wEgHfSLI2ZVYu KOx8SJVlfc0= CLINICAL HISTORY (test s3mgvDCgIQTfiZB1FvZsNH code = 3356) Cij7pfw5TkpAMxuMUqYKiw dIAmhhLemp84uND1xQ58UX 0eKJWtWeP4WQAukjV4Lqm4 QUYdTVGcwRJvR621k2wdd5 kqydPnnRO9ILPgHRHfH3Gp HW9pVCXdqNHcS54kvLFnOB Y0JVSdCMBpyYSjJHSmOOD9 CRTyvIZtA6xpWQSxRT8ves hlEKohZGssHYPfyXD4GTRl rQThU5ZoJZKnRFwuLBQekt a2RaQiGn6eoMOifPhhLQow YXJkXHJpMVxwbGFpblxmcz BpMJQvKENAvi9kEPIxKsyl yTLjN7huPA2xkJgcPPC2uu VtBAZzSxdlPEIdfu7fDVJw YsvkbUTiC0gxGF0lhVwgYO Y7hLUkLRAtzz6= GROSS DESCRIPTION (test e1egoKVfCANvzKGPYSCuEx code = [id number]) fxevAcCZRkoQZgB9Ylcchf ZNmoEW1qUZ4msEengBWrbI GaNT6CTQSsTrOlRTBxmNUw lhXkSvXbQXYdvRNlqDI8CF CbEG3wzxswGJrjRAarNUJt htS3NPZylKInI5YxSXBdCZ 7jizwvHMR9WNmqpY1twpNJ ThngRi1ipVDvlKimGwGqWb NoYXJzZXQwXGZuaWwgQXJp YMv7sM2CRwwoX67ce9X3Dv l0HGRjFRWvP3AdAV8jCAFk wPGsB09SVpkuLCR7ZANOUx rlRUGuIT5Jt3znPPUwfUPz BNR1QAefgYSmQXLhJUKfMT s7MIWvKCxarUEmDS5dcYum XkdoqJzit6ZkxHOmIChrKY QeHHHzUVdmAEVxMT5AIlDa ETsCIsahFRooEqG0LHf3CV YWEdYcIlCoBfweCBX2QRbq MKz0SEa8XCjRAjI3UFD9QX TkUTlvIRUxJvmgREh4VPMi XFxmIEFyaWFsIFxcZmwgXF lqL15sqKmxnZ7jUX2nBP6y nAKuKUNbjB6zBW1yM4NctX 0uXHBhciANClxlcGljTmVz dERvYzEgDQpcbHRycGFyXG xpbjBccmluMCANClxsdHJj aFxjZjFcZnMyMCBSZWNlaX IdIZAjleCoo7XrGUmhnxZx YWJlbGVkIHdpdGggdGhlIH RfwOzunkDxG1N3enOyGR9i RTFzOXQvR7CeSHXqF16wSX YctS1qDLDuEF0aTOk6SQEi IFWdEajjdT9sySTzYWTrlA 0nDRIcJ0ImBeJyi89ccWI5 liBqQrDgSLIdfd8mnD1uNY Lumn5tGEUbi0J5KSBii1I4 SBNeHH19GVjdGY8nUXbjZW 4xIGNtLCAwLjYgeCAwLjMg lEDdWhWnH87pMiTgKZzbNA LyRZLqsBObYPtkFYN8Zf7n pARfPBLpmtX6d9UjQIkkPI AhFgmkQXDjIWgfeCBmKP1Z PDSpGKzfytTyRD6XYSWeGK mmDRGyaMDTQYM4NO0qJFko uHMfnqhxTSHzA4GcK9Jlfh VcgOYzCKTxkzIkf2inQIO5 XHNsbXVsdDBcZnMxNlxwYX T6TFz8IEzdQGPfZ6JtT8Dc MOaqYFV4RYFnFdKoIZJkHO SHRgXyNeFgOzO9Ytb0XbEq QGy8UBnfJ2VFRNJoUQY2UE X5IKL2VtX4UGt5VFQJZo0r YFXlGLA6KdX5VXT0DzG2XM xcdCAyIFxcZiBBcmlhbCBc AATnERdufgO5LARfHPKzcD yryI6dUi7iZF4meFNtNJPw dQ3mIM8tZaihrEIcBATlVT 1nmS3oYrfwZSSaRIykHIKj R81uk9ZOu7JnWW3JJGg7ki LtgxyvuV3lDUFcigThJTxi wUDvG9nmP8QeFEUkUpSwGn OeAXd8LAQmeO4qUs4aaMBu rX9xkQFdJJxkAKA8tFJvKJ TbUWIlDTBwZU72TUgAYCGt bmFtZSwgbWVkaWNhbCByZW NvcmQgbnVtYmVyIGFuZCBc iMysAoNpSFz1U8JwbQlbJN Qda1pmmc5gqWcnwGSwv8Os gdJzwsaqTFAxMXZzz64bkB X9noWoVqIfgVo4sZOkWIP7 QQ8jsPstuqaahAHqYGa3dU RpMKZfHnLlvRvua0FzNRwh LjQgeCAyLjEgeCAwLjQgY2 1lhH8tXZnrwsKyVWObDJ3i UQKsIVOepGIxvH1pglCutk RfmTHlrBA7EKBvuJ6tdW08 hcWoxuIDSG3fiGUvGA2QRW BhciANClxjZjBcZnMyMiAN ClxwbGFpblxlcGljTmVzdE KvUlOkwJmwaG14MTAueZXp ORX5GO5vCSGkhnslQUUnBW LcYJT2YPeypY40eHKjQBEc SHArsQTduH3Os7dvFEGtkF VmTPX4AHobgOIvVJPtCTSb RAhoYsKdT6QTVUXpFdEwUX R0VSUaPIh6TKp4XH7CKuLt XPZrFQQiCeI3FNLbXYt4CX qgHQ7KYHT8Eob0TAS2ASF2 NTMyOCBcXHQgMiBcXGYgQX WfAZdfQNbcaNGvIP9gcHtt lmT8TZYxJEfpCTXuMJFeuO wqNQMId1zjebMsQPGhJ8k3 P5XkQ8MzLHliEd8dzCLrQC 5MOIGvwUMRQOZ1HO6bAQEX ClxsdHJwYXJcbGluMFxyaW 5fNJ3CGWo7cwCsLNNkZTgu zoJqTMYqD8EdmlHvTOihCT Bxqc0qgSraWGshDcWhQOHl j3b8rDM6tEWhcHV0ySNaeP ivOmRqWV5gkARhYT4aRKsn BWvndtMfn0PyWR99nGZcru BofiToWBC4KzItHJjuDDZh h1h4aMuuV87zp03qhhxplK OdCASvLU5alF2xCbTfmhLw Y52lx5uciWHwp2RofFNpuZ lwbGUgdGFuLXBpbmssIHBl YQLqD1EjVVSgXRNoe4L6XL Ttn9O6NASgCr01JSdmKn3x OAfjBB54VFAvNBjvMVEiM0 OrM9Q0EBdlTTWUzCEac4Wj L6jdYD1cjDDrx6AbiUy4sX NeOLbpIDVxqO5xwE8qJqFw XHBhciANClxwYXIgDQpcY2 YcSTFdKoTrPWlugOsjdC5d DMJzB34ri0IJq5HbEORmHH fso7pesLisv1OavPVqIIwy WZSlgKNkMNvcnB8cHzQxo0 gcuPp1QJibwqQ3RGQqwx1E DirsOlclaOwjc0MytGDhGQ chZSKdJPHpUSprUGRaYJ5W PwYwWCuHEbytITuwCzA7CI l7OYSXXbAxEcDsIpgxTSG1 LnDaRYr5LEo6OHsPRnP2IF S6JFCbJrWmNJKvYeknBTa5 IDIgXFxmIEFyaWFsIFxcZm nlZPhaE39zYeIyKqpeeAEq feOCPiJYs3r7nUduA19lw6 5nRIMPrlZnb1PhxoMxOcuq WRNgMEfaUQFhL76om2GQm4 XbNX4PDNe0kaShwdukvN6u MNYnfuGvPZrueZAhX3njC9 UaVGQfRpCbDwNoQEc5TORw tE6cCh8leDJbdP3nuFIzXJ hzWHX9iMFfEJIhAULfTVMh YY64EDqXGVSfmdQqLJpbkC VkaWNhbCByZWNvcmQgbnVt YmVyIGFuZCBcdTgyMjAgXC f7U3OlkVfpYCEod8yueu29 whOqc7LzerDbZKJmvSYvGY 0lOliubC62ESLxDJSyDMSw rPudIHidBzXucbEgU91ge7 bzsLMsd4DxlDMdrYqngQWv dGFuLXBpbmssIHBlZHVuY3 TzCCBzAIJpi9N1AAGnc9A4 YVAfMa6uIUmlRr4gIAatMM 44OCOaOUxwAATtP8QuD5Y8 ZHpkDYHApYAqd9SwF5ijKX 6tyQKyp9OvwGo5wJRnOPfo YHTqxJ6plM4sBMHvIULxAG QshyRLDieeXCFfXDjZv7Ou bFsjPKRxH2x1j82nA4gbbO OtXRZGNAE4kWOqsdSqaDIq FN3HBDCtmmQVMvnuSxSnKe MyMiANClxwbGFpblxlcGlj HmLmvYDqMrYueQxhkH22OI PelBDyRZD9JV3lCZIsehio LIElLBOmBFB1CGqxdY84cX RwQURvXOHxiMLidB2QOWVw SUI7IGmkuZ52mXKrLE3QKD LbHFY1JXGhlLXeKQE7BE2y fQ0KfQ== MICROSCOPIC DESCRIPTION k1lsdYDsWARnmIA6EvMbKD (test code = 3371) Pbt7sgu4GlaGEkzPFcGHlo yYJappKgwq49yVT2dG91YX 4uXFLeVwG1OYBmvyV7Hbn1 RFHeFFOxuEFhW098m0mdf5 jbisTaoYP0fRmyHQUuwpme JyE5IQwgLQZkzowfODi6OP baYXNwvGO2DBKfnBKwJ7Wn QBOcCG9bwsi1IKA2VZasCW AoXpR6QPRqiKTuXFMntZhe TXxih455SGX0GyDgHIFnzb GdjYtaiU6oAvVoPXPWLBOc f6DhTOHuXTFthyxgNXVhET Bhcn0= [facility] [place] [id number] 09:50:09 Test Item Value Reference Range Interpretation Comments Case Report (test code Surgical Pathology = 104) Report Case: [id number] Authorizing Provider: Angela Loco Collected: 07/03/2021 03:04 PM MD Brian Ordering Location: [address] Received: 07/06/2021 09:08 AM Service Pathologist: [...] clip x 1 DIAGNOSIS (test code = [id number] 3220) FuZzEwMzNcZnRuYmpcdWMx IHtccnRmMVxlcGljOTYwMV dizwWsHNTkhOIeP1Wyhpky GUoiFX1wRT4hkMtqsNObbZ XwWNVoFsZxy0bhy431sQJu b1toUKMWajmgvZn6jUvwZ6 9kn8E5XyfrB18apLCgXVI6 VCGuLYNyeKFrTLLwHYP2HO NmgOHeG3jzAZMvXX9vyipm VBxhRAmjTTObkHB0FFUcpV SrO8PpPORfYEgiLSNvrpe0 WdXdKw9mcRKqmElbESqyIM TpMOVeWMtnNJXsFcKfFM5a E07RP04hUUUBK9MGYMZVBQ kHZFDBWU8MZ4i9NUEeujVy LSAgVFVCVUxBUiBBREVOT0 5DBMAegyrwMZFfIp0nJ84M P47sBTNQY9cLA4YIM6ZIHR eUZaNPF7xMTZdiNqcJPPQR TumiDBAfLD4jDF7CTXXXQW cGXFAYDDnMDO0EDjNSYjNB TGNAFYCUKOZSHG7INPSpzY FyICAtICBORUdBVElWRSBG C7XoBKsULK6IXiGKWNQHOU LAXBNHQOTcK3NuKLOVESkA WF8PYPfqQMYwuLLfRVBdSM USHB0JNJQGUSdAXK1OB9UV KvSCHydzGT5WVRQdDJSSD9 BTWTpccGFyICAtICBNVUxU SVBMRSBGUkFHTUVOVFMgT0 QhQBTNJUfOFnYXDJNNQ70C XHBhciAgLSAgTkVHQVRJVk FrLo1VNZiIQ6wxA2DXEZYf HFtTXTaMT2tZKR7ZES2ELZ sMVkGYX3yyfFTxPEBvwyZm lJQaPIGoXNTDMQ9ZTINREp RGU5AYXqBNJIIXIBaYESAU AA2KR4o4STKbewXfPPMoDH BACRfPJHNqSxJDN27SBpMM GI2ZFFOLSzUREJLzMPYRMz 5GBZdiJTFiXL3iOO7HI7CJ SVZFIEZPUiBISUdILUdSQU CQFXUEJ1BIFEQMDDELCxUK LPcCK58UWpFICWAypx86TJ U8IqPpd2A8KPA9YXPlYWJb k2kxRYQjbUGlWnCiUfWqYb CyKprybTArKUVxEjEnv8lp m193qALbq3wbEVGdFyS2rQ McHDOxeICyV011VPCwOVdc g6rup0VmQIBztJXfc2K7BN DOvenzlLp7oJfhJ63nv0E5 HsypR7sqAQLmROQhO4ZeYB 7zTJKwYhh5URG6DYY8MJZk XPEnQ3HqHW3zADWezNDkIK f9c9evePpjUPKfWOQ1t0nq QIgjnuMmQR1kct5xsSv3f4 xjczEgRGVmYXVsdCBQYXJh B6SldDfnNo2zlBv2mJucGe tmROM9Ood1MS4akf60zjt3 yKqoNKRdytezFtS0MGmmDE JxnznyPLh6JCduITEyuRR6 HMWkjWUcZ0BjURQdYN5sxr k2YAV7ASczWOOuLaJ4BKAx wSEdTZXjzBcoASqng695HU H3OoDzIO9wD2Tmw3R2nK5l aXRcZGVmdGFiNzIwXGZvcm 5npJCwNNoio0HgKMT1tlS5 hITpeCGfUKGhTzO7EFwvYQ 7kre66FHGoJCX5hw4deJGp uLvhitPplGBbMIsbI3BqGY Uea617GWZbC7LaSECbt7A1 ynBhXyDlHROrrMS3oqQ4CV YaXQ0rsiame9gzDHnhAFgx QXNcniA7jrR6AKIdsJOeC1 TurP7rFFEoRH0ednlcf2od CVT3ZAtcBEOdPZK9YlSkCX Ueg5Ajetl1AdPuw0CmgIKd WOccE41ue353BPOnccGcG4 xwbGFpblxwbGFpblxmMFxm oqU7CEGpNWtuultqUZCqDK vzJ0hhNlDyERCctMljHNws z5TwMDXyPNNvPgUzkAOnHK CtOlu2ZOJvyKXmMAAuHdUn K0okervtQvOEWFUup1yfD0 ieaMMEnBYvQ9SpBOhyomDp MHbsBJctNIOgYRK5TU7iNU QzPMSoga82 CPT Code(s) (test code h2nmuDYhFZVexFO0EtFnQI = 3357) Bsd9zys7ReoBNvmKDcKPie wVAjtqDbnj64lIP8lT13LX 4wDHYmDfE5CKNsvrL7Vak6 JQQeURXzwZHkG056k6dzw2 jdnsPvbGX4rQdjWCEpucgy SaL6MFesPWQpxkoxSEq3HA khWZXiiVU3NNXsmKXoY1Fk QYQfUC7lcvd4CTL3ZAxqUP UoPoS7OHYefWIzQOAetMsq BEcuw411LKP1TmCyMQIxhk IwrLalaZ2aWbKxIXR3CEQl JEr5DSFrek6= CLINICAL HISTORY (test p5lxhWLkGEPmbUG9GoAaFZ code = 3356) Kpa5zsi6CewKQcsSKzBGfe xKGjxpPvse90wBJ7sB58EO 6sYLAzMuJ0ENWamcS7Tqo9 HPPtPSMxzUPfJ200t7rvd8 ejfzAcoRJ9VFToUFWmB9Ow HV2hKDRwnWLpP84rsQHgON F1QRTnSSDqkYPuTBDfBQD3 USMgfFHeM0rsBDHrCH6tiw eaUXmtQXzjGJOpmBY0BQQn dZZpH9IqLGLhXFwpRTFmua s2JvDdAb9luHYvlHuaZLuv YXJkXHJpMVxwbGFpblxmcz CwXGQkWONAeq5mEGYnSozc uPWzM3fsKU3iiSdiDRP3bm XaRQDiTplfMXXkoo5eOUYz RodyhUQeD4kdKA1goXlaMX M8qXBiLDYrfx2= GROSS DESCRIPTION (test v8jsjXWkYDHbwDRFQPOaMc code = [id number]) minuWoDPGciOGkG3Jkoopg UExvPU6iRU7tzCduiPXbxT AfDU7MAOIdSsEwKMMehSMf pvEqYzCqGVBldUYogQN3EL MqWP7duxstKPmkXUmbUWGf xwN6BYCrsLZaX1PrWMSuKK 7jzrtzCNT6GMpnmB0sufKG PhvvJz1pkWIqdZqoIzZoMd NoYXJzZXQwXGZuaWwgQXJp WPr5bB4DQusyL22gm7Z5Cy r8VEKtBTStM8MtJI3rTGAl rULyW69QWuotGWR1VNILHk qsWIGoQC9If7pnACEqkAIo RMK2RFjyeOHzQWXgCCFbFV j6CZIcYCsvqECxZS2ymMxj XgtncKyna1WpxYDhUAssHG CuKPPjQFttXTEfWK2AJnFi ZDkHArkdLOmjIpF1BWu3TZ NSIpUaHjAzGoacGXB7DWlg FTe4PFf6YVdTGtI1BHF8JS BnQNbvHZHwSnmoONp0GZWl XFxmIEFyaWFsIFxcZmwgXF urA06pkCapgI9kXI6vUR2w wLDuTXWkaG0zFC7uX4FqzH 0uXHBhciANClxlcGljTmVz dERvYzEgDQpcbHRycGFyXG xpbjBccmluMCANClxsdHJj aFxjZjFcZnMyMCBSZWNlaX MwEURgdqUkf2BxAEmwksTi YWJlbGVkIHdpdGggdGhlIH XhwLggmwQrV0Z3ugVvFO9j AMTiVNXuG5NhKLZmG38mWL YdkR5cZTJhCT1vTZo8VMOu BHInOnbiwS0pjJCjKFSfqU 7wSPGaU7XhIrRzb35sxFQ7 pvNhWaDgXUKzhl1ayI6kMX Lbxe1eLRVdl7Y3SJGbt0J2 OPIfSP56QPejSN1aZUanUS 4xIGNtLCAwLjYgeCAwLjMg vTUxMyGsM05iUdPwQCdoSX ZfQHOcgIRhOFrpNGL3Bm4z lGGpTQHpqmB5g4YxAJihIR PvXvzzEGHpQBqbpKQlCH7H EILtJPjeusQyAK9QFHDoCT bgDGDzkTXDSOP1KC8vAIwy qXWtylbwEALwA6SjH3Tmfd QcpKAcDUFvjoTyt1fcRDP3 XHNsbXVsdDBcZnMxNlxwYX L3KUv8AFxnEVLhP8DyO0Vz VMuxLQZ5DMWkZyAfRZOsVE FVUyTwNxGjFlR4Cgx4CaKu MWu2CMsoK5YWYDKtSRM5XG M7VEV5TkJ8DDi9TIZIBd1s XSKzTZR1EmU7CDJ3YmE1CP xcdCAyIFxcZiBBcmlhbCBc DDBlMMiyqiU0YDBnHMHrxZ rciT0hNl4jQL3trSGrOVKq bC3vZB4xChtdiYVrCCSvAM 6fwI7iKbqgPICkZEdmZFGp A75ci4BXi4FxKO6ZEGg4zj MsnivmoV8jANFytqOiBDzo xHJkZ5baQ3WqABRqTdJtPa XkKYd2QOPtyU4cTc8ysPCq iP6gnLHsXXsfQUZ5bICmEP LkYHQaRKBbPL85EBbWHUAm bmFtZSwgbWVkaWNhbCByZW NvcmQgbnVtYmVyIGFuZCBc bWzwCiTyUAg5E2ImfFamSP Vvh2qpay9tqTiuzNLkm3Uv emHtqufqRPPrALTbq15rmA W2zeIhYrOggLe2bFPfGBF9 DG5cfEwonvzgkDWsWVx7hD SpZWLgHlCwhIhcp5ZoPXxs LjQgeCAyLjEgeCAwLjQgY2 9fuO1iMQhyjwAxWEXrKU9k NABfBSZpsVGfoN8qtxDerm SciNEiiXC1YQIpkW2zvI00 rcGthvKQYD4rdSLcKT4LZA BhciANClxjZjBcZnMyMiAN ClxwbGFpblxlcGljTmVzdE DdXrEjdLxuvX90JQUjlXIf EYN2HA8oVWCdbybiNCQlEM ZnWUS9FGaodA60oHFxQEPh HCBxlIElcP0Cs5vmGGVihZ WfJLI4LUasqOKtIDZdVVCz SAeyRtHjL5RACXPiPqYmTZ E1BSZaEMc6YVx8GP7WGhLc MXYoZFOzWwG8BZUuVGe9RN muPT3RERF3Mnt1QTP6TOA4 NTMyOCBcXHQgMiBcXGYgQX GcJMliKUyfgEIzXZ7gsAxt llP1JCBiUQrjKSNlBDYnxC ddIGKBq0dnegCkMGPeE7n0 S4TxX3XfKDauUk0qjOPeNA 9UJMPmxIZPDCW8IW5yKBYA ClxsdHJwYXJcbGluMFxyaW 1kXV9HDDu8faIkPATyKNaz avOdFBJiQ4NtudKsKNeaLW Wose1ovZayAFwjPoUmIBDk p4d5nTQ7gKUpdPH5nEIyqI fwNjGtID2sbNWlQA9qMJob AQoaxjRud2ZpWS77fWFgfd AauuFyCNX1MeWbTLclYDPo t9q8jPscA27ur08wubbqdF XaWGKqMY2ylY3fTbJfnqIz G21gz2ypqSKfk7YedEJpaW lwbGUgdGFuLXBpbmssIHBl OZBhL6FgJTXiOFNqf9F2WA Ppy8A1GZVuOi21BCozWz4p QEeoFQ74ICSbWGhbNSClF3 QuB7I1RRclHIPJtKXbh5Ta R8clHT3wyJYlk3NevYl6nE DbGIpxSFFdiJ6nzZ9yOpXf XHBhciANClxwYXIgDQpcY2 BkAPGvWwMmXSiifKjaoH9z TNQxZ74zg9XYz1VyOBKeSK mvp6ducAzjk6IcwNKqGJrw VTCplSEwIDgcbN4cRuMhz5 uyqJw7CJsqfbX2USLfte3A IzhnBlnaiRcxi6CetEPoIZ xwICFyVKRtALdgNHEyOC3U ChNrRHaSRoahHOonHcE3TN e9OLVHHnPmXnPyGvpxRIQ0 OhXpOXc5ZBo5OJuRCcX5IP E0OLXsTuFbEBVjVsolBYh0 IDIgXFxmIEFyaWFsIFxcZm cjDZstD93xGpTxPkmcpCPz tnHKTpLLn7v8wIibG36lq6 1oQYOBcrEac9PlkoKvRroe RUQeWTfgCRBmC15ud8QNa3 WyOE5CJMr8fkGkfyrgmO6p WIRobcQsJYdthIMoG4kyS2 EtYJLrAdWpQsMjLSm6QYCc fI5pJu2bkEWcuJ7pqSJuTU keUNL3qQOmCTPmEUFfMACs KD71TJbLSRAeflEqOYdupH VkaWNhbCByZWNvcmQgbnVt YmVyIGFuZCBcdTgyMjAgXC s5V6IjhButNXHbs0twxs66 wlEtc7DyooXrRZOihJRgEU 3kRoibjP30EPYkPRIdYNIf tDqmMFsyOzSugqHcT89pp0 deeIGxt0CncXCmrRbbnMOi dGFuLXBpbmssIHBlZHVuY3 IeIGJcYVBqp4U6ZQHss1F8 XGTdEa5yGMbjZw6jTXjnNO 13LVJyPGpeATNuN4CpQ1G3 DLzvXUXTuSXcl4AbM0ntNP 2klUSfw3SpqJl8fUVgPDhi KPDicM1arG4gDAApTXTeEB DfxjWHIqliIRKlFFxWf5Fx jYmcFCSvL8o0v06lA5iwfD BoALPYPDW4iRWjdfAktGNu HI6SUTOyoxLPWedvQiIgMl MyMiANClxwbGFpblxlcGlj CzFdwWYxFlJnaCteaE57GS TjrXWvSFG8JS0lKBChfoaj LFKtEHIvKVR4IAngqY62nH HuQCToWXLeiWSgeJ8DDVXd AAH6TSympX87fRIePC3WHQ EuIIK3FARcyCIcIWV7CY5s fQ0KfQ== MICROSCOPIC DESCRIPTION p7uqkWMiVVOxdBY5JcAyHH (test code = 3371) Ous4szf4IpuPMxpKYnEGpy zKDtnmNeck72zRH7oT50XZ 5xCLHqTlL8WUBfqvF9Ixc2 PRNjBQKhyHSqH455t2bhb3 aazpQafZB1gVrsORXnrsvw IpL0BEwsRQDbncjvOKj3NU iuHSLirBS1CJFgxYRkV7Fg EERbLE2sdeh1WOL0ESdwYW YkNeN2RFGepKHfJSRsaRlc HOhjw785YNU2VqDcQHXicd YoaNqhuY3wVlLfKVXXRQDb j4MyQVNaCSLheefaJNZdIB Bhcn0= [facility] [place] Twpp5080-[facility]-25 09:50:09 Test Item Value Reference Range Interpretation Comments Case Report (test code Surgical Pathology = 104) Report Case: [id number] Authorizing Provider: Angela Loco Collected: 07/03/2021 03:04 PM MD Brian Ordering Location: [address] Received: 07/06/2021 09:08 AM Service Pathologist: [...] clip x 1 DIAGNOSIS (test code = n1qbvQSiBVDgt7xtNFCzwK 3220) FuZzEwMzNcZnRuYmpcdWMx IHtccnRmMVxlcGljOTYwMV xhhsMvTJDjeXKvB2Saqytv IEtnTK3hWZ8chGizoNAyaT CqMWSxSbFpi0zge648jZJd l4ejUNGNemwkmGa6bKozT1 5oj0Z8ProrI36gaZJiALH4 KXPlPGCvyLFhWQRfMLZ1WV KmxDYzT1ntMZQyTJ3cdclu NJplPLtuYZNsfQH7FWJcgA VgN7IeEKUnJIvwXWQmzvj4 QjPfFv2krTEvsRnsDMkzZQ RtDOBpBAbjLUJzDoUrDZ5o K80CR74iXAKXC8NRPWFXUM uZFJURQH8VH2d2EWDehnBd LSAgVFVCVUxBUiBBREVOT0 7ZTMOnxvzaDMFxCd2gJ70B D42tOJQEQ4gFQ5NIF1XGTU aBCzZLA0yDMHomSklGUQOJ SmquPLAxAM7dNV3GECNSUZ uWTXGIAHjFNU4DBvNPOhGJ WIVMGEQTABSRMK7IYNAobI FyICAtICBORUdBVElWRSBG N4PkOWbUTU3UKhQMNLVIMK YXDTJYHWEzS9NqEFOFNGuV BI6GBPxkZXXrsZMxVEOsMU TEIZ1QJHCROHwDRZ2KL4ZW QqIPKexrQE9NPXQnEIAGW0 BTWTpccGFyICAtICBNVUxU SVBMRSBGUkFHTUVOVFMgT0 ThRIKABCtUBlUZYLMNU55I XHBhciAgLSAgTkVHQVRJVk ZqTo4ELNhFM5bhF0SWEYMg LAvCSMdRQ6dGSH2KLN8NEC kFXhHBA4ynmWOtIHXjadGj sDHkPFWbONOISU5TUEASJa VBH7MSBkXYNJIEKUwMKVCY XV3YU7m2UFEtyrNbLDSyVK WOLCfIRKBhLvOSG21NHfND WO9GSQKSNkYGBSDlEIDYKq 0DXGldPLJeFV9lMA2VV3JJ SVZFIEZPUiBISUdILUdSQU BRJWTFJ2OIOARECKDBMtVZ LYyRC16FQzZTDGLomn25FH O2RzDis5U9YJZ3ZTUcWSLd k8icQHZarROqSgBiIiSmLt FaJupkkKDvZRBhFiBwc6nk q847vUCpl2hdUFRxEaG0yP PcPLWywZTtA993MQOaZLfu x1zrz4FoACRjdKXuk6L5DV CJkxftkWd4eHeeS99ak3V0 RzgkW2xuCYTkRSKrG8GlSL 0dWBXjJhj0GAU7SHJ3MNPv XLOvQ9LoBP7gOPMytCXhPA w1k0wezVwgBEWcRBJ7q2he JAibblVgEH7ups4abXx3s0 xjczEgRGVmYXVsdCBQYXJh U3JrrZtjFm2suOa7lXocXu axJHZ5Zar8EN3kbp60knv7 nXqrIYAvphdrLmD1MFhkDP QaibopPJd1FZghETHgmTC8 MLHokUFoZ5HpRXRbHO5xrf n4QRW3ZDnqHEHmHpC8TDNj bCSkBPRlmEigBWsws093WR R1GeXbSW0gV6Rtp4W7fN2i aXRcZGVmdGFiNzIwXGZvcm 2dgNIcEWkbw0GbQCL9tkF5 pOJxkJZzTVNdUdN5EEvfWU 3dis78LZWdKDI3xw9vuJDi aUgibzBjtHDuVFhbH3OoQZ Cic666JOUcF0KwMCAfi0L3 tkBnDfZiEXNfvFZ9znX3MQ UvGZ7qipmtf6uwGYzlHNun DWZjdmS9hnS1NFJhdEXlT1 HsdW9tCWDfBA2tdxfcw4wz UUU6UVrtTBCoIMC1JaBiPL Ayk0Dmvua8PuIgb6LonMJy UUifD48do542KKCjssXlB1 xwbGFpblxwbGFpblxmMFxm ioF4GPXrPZgdyjvjXYVaRD ziQ2efEnUjVBKqdFatNCmd t8XeBQGvNQIxSbNuxVZfBE VbMvm2MGLueOQkTDAiNdKh G8qxcxhfUzICDALew9mzL5 dkzCVUpODyM3LkRYjqtkPq EQtgLAdrCHDuOCJ9ZL9oDX TrYJDekb99 CPT Code(s) (test code t8qelOQbUTQazTS4SoHaXZ = 3357) Kmd1bsr3EucKTfzHJrQNfx fLJlisLdlv76kGF3mV28LB 5tHJPmJtH9ONVsgdA2Otw8 ZCCfBHSczFMwC652e1vhn4 fsoxVwkEM6pEvzNPTymggj RxO7NRoaUYBudthkLJe0VV jqICRbpYS6USDqyHPkO1Jo BXNhAB6xldz9WWB1YFhsJC DtVnX4GFGiqIUwHQEigDmz JQvrx918KWM5TnDiELOspe IdkQqlkC9uMrWlAIR6SWJm LOh8QQJwjk2= CLINICAL HISTORY (test l7zfcLHcINVhfTT1VqEySZ code = 3356) Mdw7hlx5IzaOBthSIzOIly nHNfzpDjum49rYE4bQ86PK 6jIYQyZaS5FSQmisU7Nfl4 PSJlTLJuiXKiX703c7pav5 vmlaIhnCR1IKGsENIkR2Fe BN2bVHTfkAMsE26cwFSkOK M6NDNwBQTtuQWaFSLsBIX3 KUJfzTExV4wzOGHbBZ9fzf owUBpmFYlpZFHwiMS2FHWn rPPhG7TtZRPuCBlrFLNwec e1UePyIk5azULssHotKKxr YXJkXHJpMVxwbGFpblxmcz GeOOTcVPMGak0tACVcNvng jYYxP1tyAE1syIzfSPR1sg IzWCQcBhtzKQUfxj2nCCLc ZmypbPNeX9xgQU7lnMvfBN O2kZUjSLIvke9= GROSS DESCRIPTION (test h6jedNIrJPCjrGZJCLVaRl code = [id number]) tayaMgYOFdzERnN8Ffkujd LVbaOG8qIW5gbBktaKGgrC JrHN9ENXZlXsClZRNaqEXn hvSyQmDuWCJlsKVpnWD8MA FwPO0ymowxSIjgLRsoBLPb vdD8NYGekPYaF0BgHEFjDV 5yybkwDPB0FUjucR9czfIX QubySf0aiIYsoLbgGmHuWn NoYXJzZXQwXGZuaWwgQXJp PVd5xF9IGlntT08ar1S7An w9TFKlZJAqU8VhBB4bUPUt uDTbY20ECqzkORJ5WSEASt clGAZbUW5Sy0glGESfoOWn NMY9AQpukYJuYICsWYLkMS m7KWHlQVijsNGjFA0mgQem MryplIqmp0JfiBVpGTfcAE YiKAWbHLpsKUXkQZ8ITkEv JWrLFgnrUYayGoO9AXp6VZ FQVaHpNsZbZcpnJCF9JCmv YNo5VBc9FIqWVdL6WQV1HI MmESovKIYbNwroFXe8FAIg XFxmIEFyaWFsIFxcZmwgXF axB59uoGnhuF3zJF5jSN6z bKGaLSFfmO7nLK5aG0JwaD 0uXHBhciANClxlcGljTmVz dERvYzEgDQpcbHRycGFyXG xpbjBccmluMCANClxsdHJj aFxjZjFcZnMyMCBSZWNlaX QyAJGvvcXeg7NrCFgeqdSb YWJlbGVkIHdpdGggdGhlIH QbdSjorqLuM4D0tkMsHZ3o WNLwHHXaB5PwAZLpY63sQT DpnM1aCXRqUU4xGUx4KRIe UIRgHyayoI3dbKBtUINmcO 7vAOSsC0DaJxTbv68sjSP8 loSwDeRcJDTunh8xlF1uFO Cbre5zCSZzr0E1XNMpn5N8 AEDdEY18OSlyKY3uQAxrZN 4xIGNtLCAwLjYgeCAwLjMg wJYwGvZxY02bEfNbJUtfGR SlVUUhfBDoBXzlYYV2Fw0h iWFjRTNsofH2q4AfTFlvIF TlNnahIFImXMpznNYeDM8U UTQhFMhneqRtRN1SOGJuXF tvSUNpeICZPIN3QN2sOOeg xRWwbtlfGKByC3HjS6Kbys GmrNAzIEJpdyKgq8zhFKJ7 XHNsbXVsdDBcZnMxNlxwYX G4HLr5AXkoTUDuB1BcN5De BQfzVAA4CMAfGwLdQPYtGT FDSaRiIaLeTxM7Gae7DwQz GRb7OWiqD2IGYTMnILE7YW Y4VAH2DgS3ZNg7VCDCKg8u QEZnOCW8RqP3BAM2TmP6YS xcdCAyIFxcZiBBcmlhbCBc TKVnWHnfbvX7JZQoENQzpH svnV6eSi3jFZ7mmXZpZPZb jI9vQY2bYoiqcRAeIAHwPX 4blK0bRvreKNHeLLdlKVWd B27np0FJu3DlZQ7NMGj8nk HcqmvseU9fGCDwhnKbZLxt xFLxJ7xrN6FnNXObSlYzMk TzXRi7GSGmwY6uBz7juKBk gR8lhMLdFNunFRL1uSZfUA FdIUSoWGAfVY93QLuTICAf bmFtZSwgbWVkaWNhbCByZW NvcmQgbnVtYmVyIGFuZCBc bMkkRwRxVGh5V7YwwRgxQT Ere1sdeo9iqGaxpCBvy0Pj eiTzonegADFgEIEfi89uxI V3icAwAiUrbSq4lBGsSHQ2 UD5miGiejuxtkIFdDOf8bR MwSLBvDvRqxGfjl8XmHDyb LjQgeCAyLjEgeCAwLjQgY2 5jmS5rOXqswgPwGROuBA2n ONKpTWWyyXHmjS0prfDhsh VpfGXsdJG0OMUchE8ekF66 fsHfnpGXVU8mtGOmPA7XZN BhciANClxjZjBcZnMyMiAN ClxwbGFpblxlcGljTmVzdE BwQmEkhDajgI20FJNuaQYb NYR9WW0vVNVsbipeEINrIO ZmCKP8YNytaS93cZSwXXCn LEOnmFWfhE5Lo4ftCHPcyW PuUQP1BXzgaQQtGVRnOBDz ZQqdIvRvH4QDDIBaWxUlPK P0WTLlQVg1QUx8KB0SKaKj BHGmXYScYmA8YEIrBOy0LX idYJ0DMIT1Pti8ZGG0TVN9 NTMyOCBcXHQgMiBcXGYgQX ZoTKlcNDubzQNvTD3jpOnt hqV6NGUtIIxbHJMsMPLpxA kwHXIEh3adqsFdJKKdX2g0 O8DwS7EuYDuyVc2lqLOiGJ 4KTEJieCUUCUR0HQ3oIRVS ClxsdHJwYXJcbGluMFxyaW 0hSR5LJMp0muMkEEZvNOef naKgYQAoU7JckoPkMKdeUS Isxc0cjOxbGXvzUpVvXXKw i5j0gVZ2xYHhpXL4xWVqoP ezVwEjOQ3yxRIxAE6xOLia BPixcqUke9GjSE26qFJjmb DnfoHtUIW0DxAiEHxgXHKt f0k9aWcoI17ox72uezpbmC ZaEDPlUA4znV6tWxJzgpVe O19hv6cbkRGko1VtcESikF lwbGUgdGFuLXBpbmssIHBl RNAxL0RaGHFvXAOlj1J6HC Dyn5J7PSEmKs94DBhnLf0u KVgeKQ87QGDmJCuhQBZsG7 ErT7Z0ZDdfYCFKbILgu8Am C9igWF4yqAKkd4VymXh3lN ZwYMkjHIRtgE8qsY3mZlOj XHBhciANClxwYXIgDQpcY2 TiHWNsAvSqVXskyVptuZ1z JYHoX52jn6JNv2JmXVSnMW yum1fwzNhxt0KflKKoGUgv HVGubOMrOXvixF8eScVzg7 beuCw5YIjsztM3HGFinc6Z JjomYoxviYjct5StqGCcNU hiQGZwPHWgBBoyVEYoCM3N IvNpNZhLTimgLGaiEcS7FG g4RHYPOkPmJrHxPkzvQHS2 WzTgMBn8URg6IVvOVzA5EY X0FLSpYhBjWTBoXxmvATf8 IDIgXFxmIEFyaWFsIFxcZm diFMrfQ24zTjZfIwndqYGo kyYYYoMXu3c8qFsfF54ma0 8tIZZWtaBjr8OwdcGrSmyx SVWkBZrnBUFiH96gk4ZZw0 BjDK8OVNy0bzRlatgpxO2u NXOyftQcHYaakHAfH2zeW2 GxPRZqTpDhTkChBSh1JIUq yS8gFu5tzVBrjX4uzWUmHC rsHNZ0pUBlDQGsAGWbQKQl RX93IKgKFLYbewUuMSxpuD VkaWNhbCByZWNvcmQgbnVt YmVyIGFuZCBcdTgyMjAgXC j4Q6IakDtqYEVhw2kuib23 axSfr0VxwdUgQGQmmONfZU 3mImmlzR52JVFjCQYiJKFx iEpyHNfcVqQqzyBeT71mw4 zyuBOlx0TxcOSriEbvnIMw dGFuLXBpbmssIHBlZHVuY3 AqGWVlALIek7F2OAUen4W8 TZTdNl8hPFgyUp6rZGzwNL 22BGPyHWemYXAzB2WyW9M4 WUdyPZCRsIMzf3NyB0fnVX 9gdJEkl3RbqDt0oRXoKJak FNGizE1hjQ2aXNAoPMSqSU FwwuXMEbivRDLsAOuIi1Ee xXetEQEbJ4f5a86lS4apkK ItPPCNFQW7dNIebqHkmPRz FC8JUTQbfeWAYiecNyIpGp MyMiANClxwbGFpblxlcGlj EjIkvPVpAiEavRndeI32FN IfaFLtIWT6OL9wTLWrihxx HDAaUUVyGSY4TTygpV92zM IaYNMvETAmcAXkrO0LEVMn GRI8FRobeX34jOCaUW6NNV GxDUM3BJCmrXLeIDD9BB1b fQ0KfQ== MICROSCOPIC DESCRIPTION c9zquTSoMNLhsDJ7TwLlNL (test code = 3371) Ogt1xit1PxeUAlaMEtALaa wKPjptBhht72jUA9hN22MQ 0zNVGaMrT8IYRvaxU4Los2 BMDjUQMazXVoN231s8qoe4 pkebWksBN7gNblAWMjnyiu QnK8BMfjFLNkmycrTTd3KQ hnTZMtnZZ9KXOzqPYvN3Vz WNIlKS1zigd5GXM8AIvrNO YqMpV9TXNhiEJqIXSqpRrn MRgyr261XRN1CjDuDIVjzb NvcZcynJ4cEiMsFMAYRMYt y5FqJUTrYDPejzavUKBxNM Bhcn0= [facility] [id number] 09:50:09 Test Item Value Reference Range Interpretation Comments Case Report (test code Surgical Pathology = 104) Report Case: [id number] Authorizing Provider: NicholaspastoraAngela valdivia Collected: 07/03/2021 03:04 PM MD Brian Ordering Location: [address] Received: 07/06/2021 09:08 AM Service Pathologist: [...] clip x 1 DIAGNOSIS (test code = [id number] 3220) FuZzEwMzNcZnRuYmpcdWMx IHtccnRmMVxlcGljOTYwMV tvhuDxAATrtRJeF8Uyofxz KBdbMR8pWB2caLmahJAabW YiYDWoXnPzf8acn090hKIu b9xrOGTKmgbtuIg4uAerO6 6ku4N2LxftL26vyLHaTPD3 KELmITTwwXVpILGlSRB8RO AclIMaP7ybWWJkUS1eknby RLkpEZzhCRIteYZ2HWZcuF YqC8YvDPAwMIqzMSWsnds1 KmPlBk3kcPEpjPklSCsxUE XfRRTmPDfbCVYdYeVdPG0u O50WR76cVUQBJ2XALKSOTM zFOVIDIY7BT4c4PURizdBy LSAgVFVCVUxBUiBBREVOT0 0VCNRrtxcpHVRjJs8bQ65L L60cRRYQS3pDZ5UTI2PDFS lWSyGJP9vAAToiSzwRDTKM JamjLUIlSQ3iQQ9ENBQDGV nAWDCCTWyAEZ4RMcLPWrJJ ORWLSRMGTLJGVN5JAFErhH FyICAtICBORUdBVElWRSBG Y4MyYOrYGP1KXxREHNAABE CADCKGBBVdS5IwCDRNBFcX FH4DFVmjYAImiVEzLIOfNX RPRF0OHAPQYPiBKV5YI4DW IwNRDqcvXB9JUSBjJBUBD6 BTWTpccGFyICAtICBNVUxU SVBMRSBGUkFHTUVOVFMgT0 UyFPJUXUgGMzDEHCDZJ11C XHBhciAgLSAgTkVHQVRJVk HvFq6TVWiPU9khF8ASDMJm NJkMYOrMJ2iNNL8VDP7RHM kTKnCTK4dbjWBdRXNovaWj uLAmOXGxJVBNOE2IFETXOu XVT8CBFdRPCSGJNGsBLXAH PC2MY4x8IXVwvuHnNUBuNX HSDLiWBPOqGmMUM61ESiQL XW8DASYLKyJCBYYrCMFQHw 2VJLwwJIZmFO6jMJ5UT7HQ SVZFIEZPUiBISUdILUdSQU TCCWKLW1OHWTRSJFDDWwZS VSvQC55RBnQFEDBwcs45QI F3YeFay3B7YKJ4DMSsMEHp f0zoLLDucISbCxZgFhCqMt SaVabixBQaMNDnOkMis9lo m730mGMjx9aoUMKbTmQ9uZ UtLZDzdNOfR061KXNcGJzm f8sxc7DzPMAssITpi5E0BU PYqvsbmOu5nMbxM50cf1U8 GqznO3srSLLcKLVvL3NnBJ 6uQSHwPhs3MIE4DIT3RSOr LKWgH3QyYT0tOLDyqCToEJ x1e3geqKszKGOyTRD3o2fp BIiyqoAfQC3gtu8gfBe1o7 xjczEgRGVmYXVsdCBQYXJh V1DqvAgfPi7tiOp2eIphUm rcTMS7Kya6SO6ezm45bjs9 zShsEEAzeneiAnH5ROvkYL YhhvcqJNa9UNcxUDYxyKQ4 IVJiqXXnU3UcFHRrIF1yrc m4SCT4UZtnWRApCpI8HREk dLZrJVJqoSxaVQizc883TK T6ZjBsVO4wS6Gsr1I0jS9d aXRcZGVmdGFiNzIwXGZvcm 4pdKAwUTcap4PqRLA5hiD5 hNMowIGnNGZiXaO3HNdxMS 7vgr01DPTiIBM9dt3mvDSr dQgztlSccTUnUKgrF5XjPR Eqf338XIGgX7VsBNBfr9Q9 yrMpErRaUSOzsGI6vxJ4HW YgYF3wzajbd8vsJKtnJAyn WREgmuV8bxQ6ZUMlkNJkA1 PxsO6dCAKzPK4lnwlom0nd ZFD3RRgyLXMoKCR5LnAiRK Ugj9Oulwb8MqKde3ZrrVEd DRetB04es933AJLxqjHdW5 xwbGFpblxwbGFpblxmMFxm ypI8AWJqEXywggukVQYsYH utZ1yaDgVoYXTmfKzeNLhy x0DrAZQrCXLgTfXyuVGwJO EqYjj0PAThoNZxYOBoZyTd P2nayanjLdQKZHHzr7neY4 ckwUEUkNNkN4FmMIlrgzQe GRjjRFoxFZDiPBT3NG5tWK FbVTRzam11 CPT Code(s) (test code s3mhqPHuYAGlaEN8IzZoWU = 3351) Odn8cse6QwfDMdqQFaJThx qKAmmgOfwx51uXZ8uR50AE 2dCBOoUfL0ZFTquvB5Rqn1 KPJvZBGtpHNuP922x5sdr8 nllpUioYO5oYapWFXynalo GvE8HBakPHJrlqhmSCs2FC xbEOXexXN4YJOtoWPqQ5Bf UVXsBR8mbdf9TXV3UZvdNG IqAdY7ZTQmwHJhJIPqzEcp RHqgc017CSY5DtHkLJAhql FwiPvpaW4cGhNwZEL8RCLe QUx7EWKfkl1= CLINICAL HISTORY (test f2ilgZFxOZMfwBM3QiDhEZ code = 3356) Bej6puj4GciMLaxYNbHRzu iYJqkqPzbi85bIN8iV34QY 4aWIIsRcC5KSHwfbF7Fam4 WHKvGZEggQHgW045h3qdd3 kuplOuzRW4SUBtUUIaK5Ei ZY5nHSUdzBMwY09fxJFlTG U1CLZmQIDrwYWbCDHdLNW2 ZTWykZIoM5knWWIqAE0yuj glHZgmPQfrCJGcgXA1JJHx lMFrB6FoAZChLTkvYXWiti q3HcMzSk0wmXPauAhtNKcy YXJkXHJpMVxwbGFpblxmcz NyTKLrVTHShq2uLPDeLwps wNGnD3muHA7vdWifHFD4js LbIGYjJhfaZOJnqh2jLNAc VkddxCSnM2wpSS9yqKfoVS E0zSVkOKScfj6= GROSS DESCRIPTION (test l1azvCLcVSFvgWITUHUrSu code = [id number]) gsiqZhHRRcfKIkM9Egknys JFobZI4vSI6wdZmvyBJjkS AfUN5ISZQjUnAdLHHtqVJh wmWoJyAfUAHxsBEahPK6BK YkCU3zzhrzYRseQWcbAWVd mwN8RTFtrKUrR7IxBUJcSB 0xnwfiTYE4KTwaoH1qqeJM TvndZb9nlIAjvLeyJpUtMy NoYXJzZXQwXGZuaWwgQXJp ZFb2bV6YCtswD85gl1Z6Kz t5RLJxFZHtK3HqWR0jKTTj rWCsQ20HZzlrYKT6JGHABu qkKKDaKV8Jp5ohXYYmuQZp UVB7RTbicIBcRKSgDNVoKU w1QBBlUOsdwSWnIY4btXvt KygwgUmri8WekAZgPShqTV IfFTLpWHhrNVJyYM3TLiEz TQfSSuuxNRgpLgP6YZj1US PFHhQuMvUmAinkJOP2SBzg FNg4IRk6JUpVCtF3USZ4FD CrXWbfIHDjBzamEXf8TBBq XFxmIEFyaWFsIFxcZmwgXF abM30dvYsvyN0sKJ9pXS2h iGHnFGFldH3zJQ6uP2HbuF 0uXHBhciANClxlcGljTmVz dERvYzEgDQpcbHRycGFyXG xpbjBccmluMCANClxsdHJj aFxjZjFcZnMyMCBSZWNlaX PvYMJxarReg4VtDNxtkmQr YWJlbGVkIHdpdGggdGhlIH LpvExppbEjK2G3rfUiTB7w QKJnSBKbK7WnXXFjX82kYH OzvK7fPXClXV0wGXk1ONPs DXSaPvcnzI6ypZHiXYRenJ 6jUSGzF1ZkDkMpn12niHZ4 caYvEbFvGIDewf6beH2yGM Lyqe6wOBUmm7H5CMUqo0V2 RXVtVV21HYtsDK9bNZsxFA 4xIGNtLCAwLjYgeCAwLjMg cNMsMxQwB79oBcZfGMjaLI DhQYGrlBNsBYheKDG8Du8t tSHlBIUhriP2h7CoUVwkXH CwPjruKHNsGWasmEFuWW1V AFKtMJajiwYkAM0KSNKaBT otNJZdwBFYSFJ0NN5aVMnv jBIsssetINYrF5PgV1Hlyy KppXHvZIVkgzXkl0jpTCS0 XHNsbXVsdDBcZnMxNlxwYX V2ZHr3UAgjDRKpL4JxL7Mu LBudTJW6OVIzEuUyVQXnFY BXHmLtPxXzInA1Vjy5WyRq RCq7OEhcF1TSOHZtPXV3FH K9FNF7SsI7FXv6PHPGIg3h EWVcBMU8BwL5ZCN7VnT8JA xcdCAyIFxcZiBBcmlhbCBc GBYtUPbnybA0OVJkQZDaoI cteM4zHp1lJR7fpGYaUBTl dY4qKW4sErhrdFPoJVAtXG 1buA8dOdvzNSNgZZvfAAEa W51vr4OVr2JjJR4FAOj7ns ThodxczT3pKRTdtiHuZEsw iDEmO1alO5XkDUKmXrZsId RpCVl9CTWbtM5uHu0qpLOz vW0hrITaPJdsOHC7dBMwGP XuTSTeYYKoLI27WObICXIx bmFtZSwgbWVkaWNhbCByZW NvcmQgbnVtYmVyIGFuZCBc wMoyPrHnOPn5B1KfjJfuUK Mql4tckw2vmYktwBGdz7Fn omGgydbqAYAuIPZde82vrL M0zwJcRfDpbLd1iAQwBFN9 AI3ulLqpsaaptEVrVGn1jH YlFKJiIoPrrSlci9DpNLpc LjQgeCAyLjEgeCAwLjQgY2 5utY5lZJdewoNpZXHjZG5r ATLtRBCpvROyeM6vrpVxmy FrgAKfcRL1NHEqyJ6btW39 gkJcciTIKS1vcRSlOC1MSY BhciANClxjZjBcZnMyMiAN ClxwbGFpblxlcGljTmVzdE OqEiKxxZyvqY08UIJwhMTe CYW0KS2jEXBbestuRNEhYG PaJOZ7WGusyO82bHIzZMZp PVBsiMBzyE0St5buPVUboN WuHUA0WAcrzANkTJMlFOYm WBguQnKaP7HWNBEmJfUzJI W4LQDvIJf8AUe6SS6VWoXi WQEbSPKvZcF8SOTcPDh0YI luUA9XWKX0Vpa9XZO0FLI5 NTMyOCBcXHQgMiBcXGYgQX GoGFgdEZjgaNXkXO1iaZae deD4UKAbZSplCWFrUKPubW anUQFOr0ooojAwYOMnM0h1 B5PhS6LfFNdtEk6lmRYuOC 6UFRBnrNOOGKD0ZY2bEMHL ClxsdHJwYXJcbGluMFxyaW 4sKP9SQLc9ymTcRIPlUPcy weNeDRFeY9EcvfXlWQncIU Ydue8lcVqbJIcaXpGdBOXp r5y1fFY5dEBkuHQ9nVRqiN rxHtHnOU7chRYmSR2kIZul DAwkcrSkw7NwQZ12aUEmdd KrbgQaMVV1QnAlGSxpWSDi g8l8sKkdH80qn84tjnynzF DyYJDwVC5viQ7gZsTuqrRx E01bc7xyvDEow4LehOHuoO lwbGUgdGFuLXBpbmssIHBl FNHuO6ZuTZDpSACbd3U5QN Tua1S1YMTdXm45YWhmQn0f ZWrsWX21FPLnXKfsMFBhM0 HnJ8G6CXlgTHOMvJEab9Ho Z9ixPP6xkYQsz6EfdOc4rF LbXVnpIUDxsK8krR2hAbPh XHBhciANClxwYXIgDQpcY2 JbENQiTmExUMnnpOxsbB9f IJKmW19xz4YMg2RyZEPcLR ujl5qjgNsss5DnlSPdBQkj OPWmzVRjXEhxnU9mLjWkw8 gtqVz0PDdkqqW8LMXsfr6L WvlwYmncsEgrk5ManGYaYQ ivBROyLRDcUJquDFMrER3L IiBtNVzSHvanBNteDdB8FK e1CGAERlLcWcBsBfhxXNP3 GjTwHZi9IHf7SWcQDpX8EQ P4ZQTnVyJbPUEsTqmmSEb3 IDIgXFxmIEFyaWFsIFxcZm neCElcS26xWhEyDvtlkBMp noRPPqPFo2h8nGquL30eo5 9jQDWAyoOca7DixoUcTuuc DIAvOPjnMCUbJ49ij5QQd3 OeCI6CINl6lgGblrtrxO2c IIPhqbAhLRfcuFXyQ3hgX5 NlDNMlXvBtEqOrSEh0MIMp zT7vWa5tiTBkpA8aaXPaXV hcKZC9iQIgCEWeYWDtLTYy IZ93OKvTZLRmdwOiMLfitW VkaWNhbCByZWNvcmQgbnVt YmVyIGFuZCBcdTgyMjAgXC d0N3TpdYziGRQnb4dgei64 bzRje1KppnPlPUEiuDZyVV 1eHhgegP69CHBfUIVzSMYn wZwyXArkBrSbxwFrR27qz1 gdhPAgm1ItfUTueVkqvNRk dGFuLXBpbmssIHBlZHVuY3 QtGVHpDQBkw1V7WEZlz7J1 AEHgJu4wEGurXs2sDAvuBS 63OBYyBYggTYFiS1MkI5Q8 LYzyPSBCrZWcw0BgH5xgYU 0jtSRkq9NxmGi5dHBoJWgv LIJssH9lcC9xSKBwMSSeVB SjypEYKdjhLEPnYCtEo3Bh lMbfEGVeF9m8d82lK2gqtM DjMTLFCGA3sUBysgBhqXLx KF3DIHIlwoRQEbvdRoGsKf MyMiANClxwbGFpblxlcGlj ZgAqjQIoNmKzlGulfB73LL QogRVsOFA5TQ3gSFKtxgsb XRDsFMXsEQM5JAgzzF13dK OhKTFxSNWbxOTvdP3CUCXn EJO7KKmidA03yAQgHJ9SNV WaDJT0HZWxcTOyGJH3US3b fQ0KfQ== MICROSCOPIC DESCRIPTION e9igtYTrASXseLE9ZvNkFL (test code = 3371) Eok8zzr9AqvJCgpGFoWMqo bGGxwrUgij00jYE4xD34LN 9tBOBoBxA6HEDnbvJ0Ayw1 XCRmLQYnnLWlU218a3yes8 ecanHtaQI2lGxdZJInbpri CjV4JEzhVVTodsqnWCg7JD agVMHuwVN7BZYucSEjF9In PFJuJR5opja2UQD6ZSmeMY AlZiL7DNJatZJzZVOaeUvj UAqyj009VFH6YmCsPLBdnw QspOsxtG4aRvIdCUVSBBCo j8PzGHDgVDZxjrzcJCCiED Bhcn0= [facility] [place] [id number] 09:50:09 Test Item Value Reference Range Interpretation Comments Case Report (test code Surgical Pathology = 104) Report Case: [id number] Authorizing Provider: Angela Loco Collected: 07/03/2021 03:04 PM MD Brian Ordering Location: [address] Received: 07/06/2021 09:08 AM Service Pathologist: [...] clip x 1 DIAGNOSIS (test code = [id number] 3220) FuZzEwMzNcZnRuYmpcdWMx IHtccnRmMVxlcGljOTYwMV bquoIvXDVbdSTvJ9Gkznru GIouNN6vBM9zhHjeeENnyT FlPSCkRkZfh2yxq669iYRo t0fwZJBCphkvwXo0iWhzT6 3bz9O6ScokM52voODyAFS9 HHKjMAGqkAUvEUJrIED8KL UviJBeX6nbGMIgYR0vtnkb RKdxABazCJXmqFO1LGZuvP WpR8KxEFQyNMbeSKEcnda9 LiJlOe4fkLNbmPjjYGhhVC DgCWPgVGiaPSAwPvAjAX7z D42MU10zOPGNY1CWNDNUTK aHNXLYTH3FQ8r5HGSeufRw LSAgVFVCVUxBUiBBREVOT0 2IKFOorcchLUNqXx1tH96Z V63zMJDPT1aTC7PED2DSYP bCLtUXY3cLHUpqSncTASMA CdltVHNvEN5tUW0ODEIBBY xVRYWRHWrOUJ8GVvQDIeHZ SBWEJGXRVDSVCZ9OEIMwiQ FyICAtICBORUdBVElWRSBG B4EkJEdTOU0AYsYQGLOVYI KBZCOFGCRlJ5RfOENMTPcW PU0YQOnlXMMfpDUuYSNxDY BNVY4DBXXINTlZML4ME2EW YvTTPudoVU7WZXApWCKHI9 BTWTpccGFyICAtICBNVUxU SVBMRSBGUkFHTUVOVFMgT0 AyDWGCMTbGVuWLHXNHW63P XHBhciAgLSAgTkVHQVRJVk IrDz9MUHhRU2sjL7CUOXQe CCaVARhMO1lWBV3OUX1NFC zUSzIRO4ktgKNeFBUhpoZf uIOdCCRaZTKCSR8ITASVPt HBZ6PBPjVGRIIGAYuMSHXC UD4WZ7b0XYZlfqOuSHIhUH VLKSqGJMCoRaFDI79CWhVW EG8VUAHILqJIUBPdGAHUTy 9UCMxhEZTbIO2tGC6YE6BV SVZFIEZPUiBISUdILUdSQU OSJJQOR8ZBYTBHWWVAWiNE OAqLQ41BUyBOJXUtwv72XB Z0OeKkk7M1RMA3PUHkXLEo n2akAJKpbLBxSuRbYeNqRa CwNafxhMAeKKYsDaVnd3zx s750bTArc4bdZQDiYeK2kS PuCPWgfFJwH088EFSwLCdx c8mvt3FoZEMcwHDca9G2XG VInuhiuUz7rRxgH43je2Z8 TghvI7byLCZeHWHiA6BfCW 8iPPWcOvc1EIT8RDD5SXFv MBHsR7JfKR4lTTEmrEQkTJ m1o4lfvIyhGZAiCIM4q0ry ADtowjKcFT4kbc8krFx2w6 xjczEgRGVmYXVsdCBQYXJh D7SquAbeYf5spZo5yWvbDx yiZOR1Jkn8OM5bvm65bzy7 nAlvZGVbiuyvXyG8PLyzKM ShxqxxBUe0UBwaYNFbdZS0 KCHltMTbW1OiZQYnCV5rtp o9VHN2VQasYJIbQyA8VXQp rOIyCMJzlZnyLNgpk747BF Y6YhJtBT4lW1Fsg8I0vK8r aXRcZGVmdGFiNzIwXGZvcm 4yfVRxJVwvm3VdOVW2jmY2 mNAhaXOqSCGeXyQ7BQhhDF 4rhh92KNKeJQV9ie5tmXQq oHyyymHitAKiQPdfN8FnOV Wng942UQZlY1GqPJZir0F1 epHlVzViUPBsrRP7qrB5XX BfVJ1hgnkll8bwEYfpTDdm XPSwdoY0owF0VUZnfNNnL0 VhnC6vKRAgNL0czgdyr1ed LMI8SNaeUPVdFCW4PcZfMZ Uno3Hoprp4WtNbr5FpaTId SArlV62zu820QQHptwRwQ3 xwbGFpblxwbGFpblxmMFxm eaC2FZWnZFosqgghEYRqBN ydG0rqPePcLQMvtDbnMMuw k8PgSEYgHORlNwYsoQKoBW SyXvk2ZRVrxZGoKLXaKrUh F4dvklleOjSMODWmu2bxN2 kipVGVwMAtR6WmNLpsugMk NWhxBXgvWOQgANX8HJ6ySM EcOXKxra17 CPT Code(s) (test code k0wfnSEdMEUzpQR6WrPyVM = 3357) Lxh4hah3LrcAUmxSHtZDbr mZXuqnYkec90gEC3zQ73YO 2eFWYbVwH9EZAtkwJ6Eqp8 NJSbNXMckTNkA200k0iec7 eameSxmHA5qWacENFcclxl CpV2ULpmJZAunfdwZCa4PO ldRFRhvDL5MDRhtTBbR9Hq VKCxZC2bsjj6XLM2RQbeOM WzBcA3IJDajNReIFRuzAqy ZWmdi318USU6MoGgUFDlwe WaoIqqtK7eVbUjHPC5YOYo ZXj4XAWhbf4= CLINICAL HISTORY (test a0bzqULiHFFwhGP9FlHyBG code = 3356) Imj8npa7AuqZRgjQHiOPsj vCCaukNemg76dME3xA54BI 9oKXXlBgE1QEGekjN5Dmh9 ECXwUUEopZRbD332x8iqs2 lpkzCqtLX8HNIxIRWuS0Md UJ7yCXDrxBWzU43nlBMjVJ T0CUPoKGQmlMEbEUGdQWS9 CXKjtMZkO5tqSZXdHD7pja baMLtoIUleGZMkgQJ9ZPSj bLHeC2KxVTXoDLscVUMhie r1XhJrDf4toLSdbUtkFKgx YXJkXHJpMVxwbGFpblxmcz HjXRLtKLSPww4kKALkEkii hRYsL6jyRL8tbYkxIUB5kd XrEJDsZpcbIPZfgl3kCGPx TcfkoZWzC9afKZ1hkAxhYV K5pNLwRKBloz0= GROSS DESCRIPTION (test c2bjlKMaUIAvwRXKSHFjRz code = [id number]) kyubFxAEEdlCIjJ1Coldql VTvcQS0gCW8zqZvflPRrsI JnWC5IJSJbIxVqCDYhzGRq xgGgXdMdPXCsjKDkcLO0YI KeAW7iextzHEjiVMfnAWYj yeC7HMYfjSNcA3EkTUSuXE 1qtgfqXTB8UFkmfV5czvMO KweoSl8tlVWimPibGfQdTi NoYXJzZXQwXGZuaWwgQXJp RZw7rJ7NLpfbC58yo0A1Zr i7CRIvZRFrN7DzQN3oDZNc uOLxE02XCzjwLAQ8DMBMWq mkRLMyJG5Fu3rfSVRzpAKn EQS0UWmrxKTnMEBuAERcSP u2MPSgJAvsnUQiTA6agVaj KbccqKmuz2DjoVLyJWujVJ PxBICtNSecWMTrII9OLyCc GPwCTyrzLEpdRqV1MXp8DX DIQuCdAmKtWphhPRF5NEit FZt3YZa7UDaBUmV6UGV4AL HjTFamCQYzBejyLBi7HXOk XFxmIEFyaWFsIFxcZmwgXF opE54leKviyP5yJQ7qVC7m xUNyLCSclD6cDC2xL8MaeJ 0uXHBhciANClxlcGljTmVz dERvYzEgDQpcbHRycGFyXG xpbjBccmluMCANClxsdHJj aFxjZjFcZnMyMCBSZWNlaX ByDWGrdlMow8DpAIxqngOb YWJlbGVkIHdpdGggdGhlIH XtqAlxcsBoS8T1bzWuGP0d ZXDcRRSoP7TqPHKdN95qTM FlaX9dCLFjSZ0kDPl0PSJs AEYxSxlxpU4zuPLsALNybU 6vENLvG8RyMzWtc07eaLZ0 ahEbQhUyZOQofo7fwD1zSR Imoi2oTGQzf3X0GCTzb4Y7 RJNsOJ69UKsaHL3eKCyiDC 4xIGNtLCAwLjYgeCAwLjMg vVMdZtNqO92eFxTkOJgeQI KxEOZveQBoZLdwDDJ7Tj8y nJMrDTWlkyL0u0EaGKpnHH NgXmbkOAPhIErbkUZeTL3Y ZFRxVFlmspBxCB4JSNEsRW ubFHBmgSPBGVI2MZ1oVPci wGClturiFLBoG0EfA1Sjst NvoBWmPAOtpcHpy8xpHRF4 XHNsbXVsdDBcZnMxNlxwYX G2CPo2MYaiTLMfY0UlT1Iw ZWutTUC5WJHgNzKnJMQuFW KZYkYoLuXqNpZ2Lxo0ZhOv JRd2LKtiC7IPCEHfIXQ0UO W6EHK7VtW4RBb8GOENYu8a BSXdEFJ0XxN9TXA6NgK8UL xcdCAyIFxcZiBBcmlhbCBc XQQkVEcincT9CLLtACLjeN jasJ5gEj7aUQ3kxMHqPCCd hO0oLL7zAszynYJdBPJzCR 8qmD5vXftzWDOtKGsjWGXt O00an7RVd5SsKW3TDXz9mm DzfkycwH4wOSHtenZaWVqz dVGyZ5zpE6BgLOMkAnOtCh MvLSm1HFPojK3jJi2upNZy gJ7llJOuYRvqNFP2gQRkPM RcRJZtQNGfAN87FHeYVOXc bmFtZSwgbWVkaWNhbCByZW NvcmQgbnVtYmVyIGFuZCBc hEpbHlOuDXc7M7IdbGwaIM Hzv5pcza8yvHtelTMop0Bx ucXhauhgKTDiBEWsa21jfA H8idJxTnMmbCn4gIBqZCM9 VG8zoYvvwntytKHwWEn8vH DbQPAlTcYujCoow1HoELch LjQgeCAyLjEgeCAwLjQgY2 7kzV9lDEpvauAxTHFmHU9g ZPYuZDJrzSZtbA1tndHvgd AcwHSsqSF7WYPqoC5kdD20 mbZbexKUFK5ewSOtMN6OEK BhciANClxjZjBcZnMyMiAN ClxwbGFpblxlcGljTmVzdE KqAkVunCjjxD50KVBhiIVg KVL5JC7sYPFmqjmtCGPgHY ZeJKB5FYvmxS23yHTvRQNs BUGmsVVzcH6Gd4wmFYJquB OrUBV1KQfgeJAvVXGqEHZc ANboWnZpO3FZOEOqZbIeCC P1FCUpGSc7YNg6GC0VRoZd VQCdZKHpSkM2HJVlXAy5KO mgMU2VRPB2Alg3WKI4BLV7 NTMyOCBcXHQgMiBcXGYgQX ZfVVhzEKzugGGuSV3dzYqe utG1CTHyKCdiEBWzYJLueV pnZUVDr4cmttJxHGMxS6v2 J6RhR4PvQLlcDm4usTYvUO 6OKLYovTVXPRM5VF9jMFCP ClxsdHJwYXJcbGluMFxyaW 4sEX5HBWk0ucCiBDXaJZqp yjOjODCzL4DcsvYgHFolCU Qrhm1uzDbtVLheKgKxFNHo e4f2sBI4cLVuxET5wESmwS thHyDwHQ4geAQzUU7gHBcv LTzhtuUzu9ZwUF04uYPnaq CpwvOaLAR7YoVvTZleUZNw p5c0dIcmA48lp28bsppqhF LqETMbMJ5deP6uMiIeylJs N99sq8uobYDnz9VabPTsxL lwbGUgdGFuLXBpbmssIHBl HGVkT7BsHIFaSPUee2L5ER Kod3V1NXJyKy66OPmwCx9m GYxxGJ57HTYvVYkrFJQjE2 TyR0C5NEzbFCTYrRCbc7Bb I2muKF3jiGRre1XesDs5jA BnGHpmGRPvvC0osA8iBzIz XHBhciANClxwYXIgDQpcY2 NqSSUqPuEnHYgfzFxfhC7l XDUeV45ha6XYk2AhRADoOC geq9yefWlcb1XonKRlVGyz OXFxmVTiRSoyaI0tNdBmq9 hijHm5YIwkybH9YLGxja3F MxayHbcmlIgsg5XidQLyIN jwKQQgOOScRAloQAWwAO4K SoGgHCiCDdylZFpiPsN3UX j5SQCGGdHdCvFkPaiqTPF8 XjJuIFk7HZh1YQkOMuA8ZX S6UPAdWpYnKIFzPuktKFl2 IDIgXFxmIEFyaWFsIFxcZm bjRXbyU42rXkXmTxiywTZw kzXRLvACh1o7jJeoH86fc5 7qSMGMlwQvh2IwnoFrUdek EKWpPQjxZMXaR64sh4BXy0 YbEV4PZOl5puTrhmmdgX4w VDUixsEoYBreqFYsD6stC2 HtGOMkIgBzLfNaKDa6WLTx wP5qMc6iaTIjhY4ybMUyIB byUVE7uTJmVFYgOZCfCFKg DU98BRzORYJyfvVtFJclsI VkaWNhbCByZWNvcmQgbnVt YmVyIGFuZCBcdTgyMjAgXC z2R0NdaAqcNFCci0jxsi33 laJnm7QepwOiCCXxcSGyJY 1lDnwloV10VRHjICTxPEGl bObfVWcuGhBhrnMfY02qn8 czrUCqt8JpvCUugHeyuXTg dGFuLXBpbmssIHBlZHVuY3 PiPBGzOXEft9W0WCHdx0C2 BBSeWb7kTXslOc2lUSgtIB 84IRPkWKpdRDMkG6BtJ7P2 BUmlUPXRpCSix7XlT9vdCB 1ncUAwa2BwmOo4mTPpLUao UHNlgR4qaE3zZHIlCYDxYL RangLDGpcaJDMdDWcYp8Jq eTyiVEPfP7t7y70qY5oqyM XbWGYBDAM6eZVabeSxkOFp TJ3WWUTcspNHHujbHvTzPw MyMiANClxwbGFpblxlcGlj WeNieSXdMuQsfTentI75WB ZqaITlRAQ0DA5uONWwfrbi FEQvDHUbAUR6REidbE26uV CdGSGpNONvlYHhqC8RUGNh HHY3WYymmZ67uXQgPS0VVY WxHTL6FULenOZsPSF4BP2w fQ0KfQ== MICROSCOPIC DESCRIPTION p5yqrSRwYIVigLZ3FgJvCQ (test code = 3371) Cxe6vjj6CpjTAxyPKnLTob wZJeuzImac25dDH7xV77AN 9dJGDiMoN6RILeqcD1Jih9 CXLsJXVqrEJrL175d2aco2 sfzaHkhIW9cZfgAUTfxoyj CfO1RBuqAUKzzlubSKc2OY bsQMLenSA4VXSivVGtB6Yf CQVgWM3duar3HDO1JGdsVI NhQcS3ONUjjUCqFCJblWbt XZgmi369LAS3YcYsIKJhen WhrUasnD6mToYfONQZVLLo i8KpJWCaXNDhegzpJBHmMW Bhcn0= [facility] [place] [id number] 09:50:09 Test Item Value Reference Range Interpretation Comments Case Report (test code Surgical Pathology = 104) Report Case: [id number] Authorizing Provider: Angela Loco Collected: 07/03/2021 03:04 PM MD Brian Ordering Location: [address] Received: 07/06/2021 09:08 AM Service Pathologist: [...] clip x 1 DIAGNOSIS (test code = [id number] 3220) FuZzEwMzNcZnRuYmpcdWMx IHtccnRmMVxlcGljOTYwMV emgnAcFFRsiRHcL3Dsvxsi OMxlUW4rAI5wzVtueYPapW IhZYLjEgClu8xgw938gSCl n0hoYAILicsozBm7sBzcM8 5bh3J9WqouJ56vlSYfLNS9 CINpNTOtaOYdNWPfZRB2FC AqpEXoC5anSUMuXJ7httkp MKpnIXbqJVCcqQJ6OJPpsP WzA4ErOWIvRIdfAGUsuzs5 UwDjXg2aiUNgwEheOQysWU YtJJUrIUdeBXSuPhEuVS1e R10TH39hTSJUE7NFHTFXKM kDXRQZCI4TF6s5CYAxivUz LSAgVFVCVUxBUiBBREVOT0 3ORXEqrmvmZMZdEs7cZ27R D52aHCBFF5iGB6AAY4DJLX lOGaVSF4zUOBbkCphCAEHM MchgDJVkGU5yEU7MQWQSQV aPOLQZVXcJMQ3SFvWKAkED PBNGHASKDVQKSC8ZHBQwjK FyICAtICBORUdBVElWRSBG H9LyIDyBIO3ZOqQUQSTKAE QJWPNCXVBrQ5TpFXQPLGaS NI5PCWnwYXRdlAJqOKTzGY YMKV8GQKJLJTsCWA2NU7XJ DeTVVwnjXK5FHZBwZTLRM1 BTWTpccGFyICAtICBNVUxU SVBMRSBGUkFHTUVOVFMgT0 YvFVRGEDrUKsEBNBHKB58I XHBhciAgLSAgTkVHQVRJVk MmHc4MNAtQL4jgJ0TSFCLk PLvHMBiXU4sSAV2LRY0TFS dVViXYE7osiNSgSVEjtkNq wKFbQNLoTFLZSM4QPSIHQo GTU3QYAuBFTFCWHDhYYVQR RP6RO8w2FWRpxtNgHCVqEI UWTQlPXHVdGgMAZ41GRfYG AZ5EBNSDXpGJDSBmXTQHKj 6HHMbqGWZuEM6dRY6JZ5CX SVZFIEZPUiBISUdILUdSQU ZTTNLAJ8MEBVRKVLBLVnVZ NUcQM99HUkMOWCHhbs23VZ G7MuHem0C4XOC5GWItUJBf e8xfMJQssWEuNhWfIwSdSm KqJpeogRCjREMjQaIfe6og n079rONav9hpYIHoLgZ8mW KbRSMltVSeH907YTQlXRjb h6ngf5MkXCFmmWJqp5R2SY SGiasqiWc8oBruN34yb9Q2 OvzvW9gqNINwRRXsC1IfDB 0tHBUzHgr1NEW7BMI9WUYn FVDzV1MfCJ3rVBNkkIPvMI a2p1mjiVvfLJPcDNT5p3iv BCswzcQtOT9gau7ybTf4y6 xjczEgRGVmYXVsdCBQYXJh R1DanRuwKr1riXi4sMuqNs eaCKY6Fxj2CP8tmq76ssi0 xUjjKEPeewlzLvX0ALjmZJ JznrvyFXs6OLsaLNOjvIU0 GRJmjJXbQ3QkHGQaHC1mxp v5NFO0NFniKNNlYfN8GXMi iGArIUDsvSrlXTpjx348JJ W4VnBoXO4yH3Gkl2P4pI6o aXRcZGVmdGFiNzIwXGZvcm 2yaIAwCHzki5PuJKL4xcX6 qDUwuVRiDBRiEtI1PAgtJQ 4tre61FRDvICF2en0zyTEv lFczzzMeaHIrXNscJ1RhNW Lum677IASzS5QrXMSod9V4 vuHuGtYkOTHsnRG3uiF5MB OsMX3fikjqp1ycVThtUPwq ZMIxqqX0qxA2RKPaqXOuX8 JrdK5hUOAwHD1enqpfz7fk WEG0UNvbCNXbUOA3GtEdJI Abw3Tdopp2SoUfk9AokQZz LTjwH79un242RMWzajPaJ2 xwbGFpblxwbGFpblxmMFxm efR8OZZaHQnnactpYPKpZZ uhX2rfKiKdMLXxwTwmYUph b1LsXMIhABSaRwVguEYvOY UsCcq9YLGqoYRdOIZfNuCe M6ernppsHnMTUBMlq9hfT0 zwiYVHsFQuH6SzUYqrioNt PWahNHypPYLaDYY5GW2wWU BhVZDxhg76 CPT Code(s) (test code c1ztoJDsKNOcpFA3BbLrWM = 3357) Hgr3ukm4LwyLUwsQRsEDkf zIQzlxIkxk09iFN5qL48XO 8fXKKeXjR5ATXaxjW9Uyh4 CJGbCQFqeTZaA366l0mio9 lpyvFleOA2zTnxCPQufuet LjS0VAgzFYSbqtbaJHn7PF reCXAprQZ7MHKcvXRyD3Il YSZzAE1alkd5PYE5DTvdEM EfLiP8MSAlhZTeBYBtfCty BQwrs007LWV1TcIoKJOkkw XrwVmpbS6vVgNbLLW5AHHp NAv0SIGrpx8= CLINICAL HISTORY (test s0xweOUiPZZduLH6PaQpFB code = 3356) Fuk6jxm6RelBKcfZJrEQaz gNStehKymh58wWP2eS98HQ 3bZQTsZaW1ETOjyuV2Fnq6 EBRnXLUwxHXfL481f6wcm5 efgtKooZF9GAUdVTLqY0Lh EH3eRUKsxSZqV20czFHwPM R7XCGcKPRyxYToXLCqMNU2 HTYunYAqZ8zzDMKgGN4swc bsJYenFSumJYEhmOE6WICl hRXnH9DyFABoNMbiPFHoko r3LeRvRc5zkMScqXxjGPnq YXJkXHJpMVxwbGFpblxmcz WuVWJwJGQGtt2kZBEcQmpv dQVxH8zmWA8zjIbaHYS7ha RjQOUsOudtWTLnop4wLSMr IfjsfMAyF9eoGA8zqLolMX A0rVFsSMNvpk6= GROSS DESCRIPTION (test d7oyzWWiTLXdiPFGBDWlHg code = [id number]) xkgjDwCPPtdEWcK5Uzfxew OIdrFI1uDK7nfZdxdIUrnS GgAP3RRLGrUlUnGYKssDSd tfEzLcLuSUVyyVSkzPR5FO EqAZ9umyneXDitZDhgOUXw fbR5ELTtzUQgQ4SbESJfVV 0rbmplEXV1NBsykT3gmpLG DuxkSy5geHNzkPjrVdWhBd NoYXJzZXQwXGZuaWwgQXJp KRq0wV8ERrdsF59ya0U7Dw l8GNInDAGgS4DdWA9lSHXg pDGbY11SWfzxOXA1GOSPSf nsFKDsRF2Fn2gxMTBbhMBf JYQ3YGmjhOAbQRPaQKNhYB i0YSCuYQobgVDgEZ3qlSsi AmzrdBgsx4TtnFXwWJobYZ VnWYQcARtqFGSdSQ0EMkTh GHmOBvnkOUvkMmS7MHj8IZ TCOaQwWbStKrflLBZ3KFxm SLm8MGj5MAvGRjT8CKO5ZA UsFMmnLOOyVorsVSo0NMPo XFxmIEFyaWFsIFxcZmwgXF nkL14ytEfyoT2gSO6cUB6n kMVqSQTfnW5qIN5xE5BzkZ 0uXHBhciANClxlcGljTmVz dERvYzEgDQpcbHRycGFyXG xpbjBccmluMCANClxsdHJj aFxjZjFcZnMyMCBSZWNlaX CiOCYltbJqe6CdHJbcruGb YWJlbGVkIHdpdGggdGhlIH DshUcfjjGdT1E5lyZgBO7u EQFbPYGuJ5BoSEQcW57wDM HpoE3lLEDyBH5pBUl6CQZn ZUPuUobrgG1jpLKwGHAyqD 8lIENtM4ZeQtRdl13zvBU3 pxLmGvTeICUxjb4feR8jFL Hhrz9oDNBgu3W5FCZbn3I7 JPKeSP20DMafQA9wKDijSS 4xIGNtLCAwLjYgeCAwLjMg iTBaZvLhW31hFmOxWIlaMM MvKAJlnIYxOZvpZDD2Qo0p kJIiGSHojkN3j3JoAXwfSQ XvWjwdYYOyUNtgzYVjFA8Z FTRaHCbxnjYsQQ5OSLEpAK epTLIizVVCAOC1YM6pOFmw vWLgdphsZPYfN5BwQ5Niqv MnlKUsSDTjrgGgs8kbVPS5 XHNsbXVsdDBcZnMxNlxwYX S2CYw5OPlkBTDzW9RbI5Hc YHgnDIW3TBKwKoBsEFIyNI SWGfMgUlJxCnM0Lxc5KzUl JLq4KGanL0UUFVAsUKD3ZL N2ICG2EyN8RYr1JHXAIo9s PAUlBZP2HgI8YVP2AiL8KW xcdCAyIFxcZiBBcmlhbCBc KVOxFQtxbwQ7GQOfYDZmvH vjsC0qAz7xJL6hzQTnWTFh hH3gGK7bSmbbwAZoNBZjWF 1nyZ5cWqjaIBNuXJoqQPFu M42qv7NEl1QhTE5ABUs3oi XccusetR1lFWCnxaZmGGej fTFnG8jgQ6UiLONyVtPtGf YyUSo8HUWjoN9cWg4vuZNk aY1ugMPlUJzxMMV0eOQiOC OqFMYtKKQvUI09XDaAFEQf bmFtZSwgbWVkaWNhbCByZW NvcmQgbnVtYmVyIGFuZCBc lQlmUoEbGDo0W5OnlUecDJ Chg5vgoy6thWtidVBzx7Qb esVsjnwmITSaOSGdp83doL L8dhXgTkJcyBx5gFQvFIH9 XP0qyWuaosstzVRcQZv6wG DfLVFmHsXqlEmiy8QuXGuv LjQgeCAyLjEgeCAwLjQgY2 4smA9xCKpiieNrFVEaRK3f JCAqICWpvMUezY8vlwQaox PdeEQhbBR2LRZveX3aqQ20 caKqgxLMHZ0npAKqKZ2OQY BhciANClxjZjBcZnMyMiAN ClxwbGFpblxlcGljTmVzdE KwJuYxnKtsvR90BHYclUJz FCH4RO4uILFnxlxiOJInKF AjLPK0VSnzbR90yNJvIBCn NSYruWBlqL9Ef0lbUQBewS SaOQK6USsisTEdDLScOSEz HXekKvXxD7JTJAHsWbHmDO T6IRKmVEy4EVp4QI7CQiHa NPYkSBHpGkZ4KQZdBAs0ZJ bdHX1EQCB0Rvr9ZDG7PYB9 NTMyOCBcXHQgMiBcXGYgQX BtIJloXAiqlBHrCZ9wjZep huC6WQTmMEfdTNOnSJFbyL ivEANIq6nggsNsBTJjP3h3 I2WuP8OuSKqmZp6peMOrEA 9TDLPnuYZGUHW4EZ0eCQCE ClxsdHJwYXJcbGluMFxyaW 3dLU0MPNn2alNoJWVpVJgr lcLxAIBgG2TcjsJiLXbvBA Hnit3trZrjDOfmDkGuSYMt h5q2rFF1yOMcsNR6xGMrdC rdPcKnOO5mbCMuWI2yNNmv ZFvyfeLfi1EiGO82dTPhex FxgvXqFUN9ZqQlNAbhFEAn z9d1xUoeB52gr82ytkjduC CeBRYdHQ8osC8iLxFhcpRz K18qv0lcbIMkr7VvcLSxlH lwbGUgdGFuLXBpbmssIHBl LZEoO5RxBZFiNUMiw1G8AH Zze6R2GDRcXm18NMdeCq6q XAbrQC28BZEeBMolPBUeE5 LdT7V8WXczNIHKoZDli4Dv F5qlYL9vvMDzd7MimSt9qI DoWXbuAQVosL7syF3iGhGo XHBhciANClxwYXIgDQpcY2 AcZDWjKmFnCZchcPnusV7o YBQxP86as3AKw9TjABJhNI vgs6qvvStok6IlpCXlOZlv DKBeiUWqGOvjoM6zPfLjg3 hbdZn4DRtcuxS7JZJzrf4E JbfxJxizcStuk8ImaUCqDL xmUSZtFSGnXQveUZYwVO7N QtOdHQaJRkifRMkhQmQ9VN s1UXPWJqWpLmYhLhqbDNG7 YcRvDHq1UJf5OIpTJzH0WM O7RGTuNyPbLKObJtihRJi3 IDIgXFxmIEFyaWFsIFxcZm qlQPgsN90qJjSaZpcagQJq ccCXRxJPl9y9aFljS73wq1 7wGPSGexUss4BegmStWtme ETEvFOuuUNNvR24ql1CEt3 JnKH9FSKb2xzPndjkzlP4m OZWrvqYlMNcyhPQzE9fxN3 MrJZBbUkHuNgTsCJl6GWWi xH8eZc4dbZEesM8huTZiIA zvBOL9kWKjGNPkYXQfADKw YN02VWzUQALdxiByVYgawC VkaWNhbCByZWNvcmQgbnVt YmVyIGFuZCBcdTgyMjAgXC j2Q5LhpGwjXCGdq1ginr09 vzGfr5JubjGtIYWmtGZcBD 8aUtxuzO74ZOAvBUHlCVYd dCwrZAfyBpAxxmQiB95eo6 elvXKyy4AemMNqqPuikHWl dGFuLXBpbmssIHBlZHVuY3 MvFDCpHZCym2Q8EEXvf0G1 EXClDg5jKExwVi6mEPlgQY 92HDZmVQlaSEJiK5JdI6H2 ECyuTYARbVOba3QqY1unSG 2ebCWiy9AhpXh3dDEyCEvx YIIgiZ4dmK9lOUCxZYYeMR NycpFOAaajGADkUWsPt6Yu jDmiWGHtQ8v1q54lK3avkG FiZLANLNY9zREutuQliJBt DG9CZPXtnaQHQepjAvWzVm MyMiANClxwbGFpblxlcGlj HjPxvHXoSqYtaUxsqQ81YM VueWBpWAF5CW9nWHTfjmxp EIMlHBBvGTA0WPipxP16bK UxHFRgZIAhuJTrhO5ZZPOd HBA5VVbzsB18xWTuJV4IUV AdBSM7SMYcmHNkULB4MX7f fQ0KfQ== MICROSCOPIC DESCRIPTION h4xatVVcCIPnvHB0YoQcEF (test code = 3371) Bjg9vpz3HhxIZewEYdKDyv nJTnxiOykf79xOX5wE08ML 5uRNItHiT1RJJqdyC1Jeh8 CZKfOMUahYKeP064v9ope9 fnokTejSR7wRqjQNNhrmji FmV1QOjfUKCojgjbNNc0IB ouLPAojUP6CDZwnGRsT3Na DVKsUU6mbzy0SSO2EAhhQQ TcXvF6GFWszLRaEGIenHsu FBiuh970NXZ2LqZcJOXxvo SaqFwpgI3zHmZhEPGFFRQk r5XxUKXpCURdmfxjNUEwXK Bhcn0= [facility] [place] [id number] 09:50:09 Test Item Value Reference Range Interpretation Comments Case Report (test code Surgical Pathology = 104) Report Case: [id number] Authorizing Provider: Angela Loco Collected: 07/03/2021 03:04 PM MD Brian Ordering Location: [address] Received: 07/06/2021 09:08 AM Service Pathologist: [...] clip x 1 DIAGNOSIS (test code = [id number] 3220) FuZzEwMzNcZnRuYmpcdWMx IHtccnRmMVxlcGljOTYwMV ssmkVrDAEbwGXcT8Bojnpg LEzhUM0fMB1tjRcihTYieR EaPCYsFxOcn6uyw651hUXf s8gdVUTMhdnjbCa7rXfnN1 7sv2X3RvarE49nlLXqVXD0 REMuOIFbgVGzKONoYNM4HQ KgoNRuR9hiFAWjPB6vsowp DOqmCDttQXCkgBS7NXSglC XaT4KjXWPqHJygKEXamyi4 ApMiIj7kqOIeqXybIYnuDW LxIEKfFAvxQJKmKlVcOY7d C40NS89dNSZQS3ADEQCUUV lYHNRCIT2WG0m3OCFiuuCj LSAgVFVCVUxBUiBBREVOT0 6LFJRwjwvwDUEiFn6sJ17G M88pVKLCM5pYD6QGY7VOKU yKHmFMH0oKJQqsGntSHLND EiknGKHuIB6gDZ8SBQCFZW vWHSFHRNbEXQ3RDnTASmAZ AQERPRLTPEVUPJ8UXVHsrZ FyICAtICBORUdBVElWRSBG A4OsGZmQUU4MAgHDAFDCVE TNUOHZGPGuX1TaIABTDCzN AH2WKRmfHUOjyFIuQVSuWP NXBP4KWHSCJEfYRY0NQ3BQ HtEXBgphSF5CZAXtFQWNW3 BTWTpccGFyICAtICBNVUxU SVBMRSBGUkFHTUVOVFMgT0 KtVSILCHnJKaYULNKRF58P XHBhciAgLSAgTkVHQVRJVk BwXh5EENvZW5fuI4VJOHQv CBkJBCiQI6fOIN9PZY4VWI oZHqJFI5mvkVDzAYTxxvTe uEZeDMHhUKSWTN7OMXUTRa BYN6MMAaMVRZQABTgUSRVA VR8FK5s9KDHnvqKqJOZmFM BLSBkFOVLbNyVFL21AHgCT OQ8QYNOMZmYINRVoPOGSJf 3ONDgkIVLzWU1cSW3ZL8FA SVZFIEZPUiBISUdILUdSQU BUBCUSE3ZPGJOZRIFXOtPI CBeHI24UXxEFBQPhqu27WM U5DdXzk0C2SDG4YAWnRSZx y1afWSYtjKCiUvKgZkAqBd XsBxntaMSmNDZuCuIkm9nm j496uMWkl4hvOSCdJwG5nT BbKNQugTFhR426UWGeZHka s1gka5SoALQlcTWfg3L8SK CMjpvlhHd7cUjmX19dz1F6 CjqaX0ovRIZsUEDlH6XuJJ 5gMLBeHpw4PIZ5HDQ9RYTk RUTaM8MfNL6uWZWzjWJpNL v9o6ezsOblVIGaNMV4q0mc GLllcuSdMP4bpo9hnAz8j7 xjczEgRGVmYXVsdCBQYXJh X0HxiGrtVz0nrHc5hFceYj fqNQV6Opm3KO7zjr13pax7 pSriMFUsnljfDtU9HSrtLJ LquwmpMUt8VTqvYIZbbVW5 IMOauJWgB8QuHKZqKP6lht g3BIM8QXynAFUqSyY0NQAu kJHfGBCtnFpfLLqlh646JZ W8CjZsJE4nY5Zlt7F2eI0g aXRcZGVmdGFiNzIwXGZvcm 4edRIsYBydj9GoCHB1rjD5 fWRsjHYyGMDjWtT4FKbsRQ 4vue70HPGxPLB3hr7ncGDo cAvqbuAwdQRlCIiaA8FvXN Tbf537QBWnT1JeONAeo8E4 onOfLjWjVVNdoLM3lgM9NQ UlDF4xgssau3ifBKzlKYoa PRGlnoS0kpK2HUApiLMnF1 XbjG9xINYvWW2gtpoua6gc KSC9LEgjLGMuSNW0RtChJJ Lkw9Tkjhe1EgKku0FurFWs DFgwZ54xp433NSRoljRhE7 xwbGFpblxwbGFpblxmMFxm cvQ5NZFkKJmoopfqAIUgCL ppJ1kzGvHzCJEcvIqvSWqy n7FkNFFcKKXyPkEjuJNvTO TpBbx6GNJtnXKbOEQlYmRb Q8ofculvTlYEYDCwd2rbH8 tuwPZRpBLvM0HlQBbiljPm DRhzWSxdEIJqQSX4GM8sKA VnIYUqbv82 CPT Code(s) (test code h0fjmJXkZOKlbYG0CfPhCY = 3357) Sob9uxm7VbxHDywYWoZFes xISvbgBunx76uGR4rO89CU 6mHAIxQjU2FNJjfmC4Mzh2 JKUpLFPwbLFrM006b4agp9 dfstFqjNM6eGhaVIBvpwol ItB6GQrxAPEgrlzpSOz3SY kxVJDywML3RHBclOSuE0Ji XBBrFT4amos6ZNL2WRwcIZ VqFcT6CFVifUViRKYcvRnt HLkai256XEL0BfKqMHRwjr XypZahhN0sDuWrHZY2MAZd VUi9WHTlxd3= CLINICAL HISTORY (test p0qujRGeALVemWL0EzSpVO code = 3356) Jcm1gsq0YmjOPqsYCeBVeh tOEltiYmid44fPI9dQ80NP 3sCFOvDrD6CSUairS8Hvk0 TKBrXMGlyTHlC364e3krd7 ozyvGkhTW7DLRqJHQqN8Uw RO6cOTHvcJEiV86xjSKiKO T9LPOnUPBkkNWsVVTgXUP9 QQSqaMMaQ2scHOSkBE0tmj xyRCksHQsjEXYmgFR9DETn gCKkT6HiCLAjGSbnVDEfzk p1ZaEgHn1oxCGdcRszKTkp YXJkXHJpMVxwbGFpblxmcz YeLNKwMKVStt0vQUUsRsqd vVEaC4giTH4vwOfcPZI7el RaRLPuZckuNGHydh5eZSEc AuafaLNxM2ppBO0uhBgtJL R5tCEgHCDyni5= GROSS DESCRIPTION (test e4fenKIkHQIgaGKLCINtWx code = [id number]) lcwgSrEIAhlQZmE7Pxoaov LPyeLL3iUP7afAhtmHQbzF AlWZ9JLICcRnGzQFWnuNZn mgOrSsOdAEYleUBekEN2YE OoCP4pfvyyOFfyDEzhSTMc wzI2ZPDixMKoP8NvETDlMB 3fzkndLBJ4EXpvdL3mylYW RzzyKh3eaKYknVifFbAmKz NoYXJzZXQwXGZuaWwgQXJp NKm9oV1MWtbnA83qq4H4Uk o6HZKbSZFbT5OsKO8dWCKh bZHbQ84DFowwWGC1HHXGFy oxHJDdNM8Oc6paEMMgoITe ZBQ4SLflcLJwQULtNZGlXO u4HPUqNOfuqBAaAF9kaXwn MnlehSfct1CkzSYiDHnkEK WrUBNnLMvgHMPqSC1RIaRt DIyCEbecMWnqPvN0YCy0KL GWVeMbVyZyTyalMOM2AQmd LJc1BOl5BTkPNfZ7PUB1DZ HeCIchAZIuWkfrNIf8NBXq XFxmIEFyaWFsIFxcZmwgXF gdK48yjLgwgQ2oUO2tIO8g rLTpCBSraI4vMG0bI5LmnE 0uXHBhciANClxlcGljTmVz dERvYzEgDQpcbHRycGFyXG xpbjBccmluMCANClxsdHJj aFxjZjFcZnMyMCBSZWNlaX QoLYKbslWbs7ThQQvyfyFo YWJlbGVkIHdpdGggdGhlIH UuyUjdpxVcL9C0wsEeLX2y HCJkDRVbZ8TbUTJuE77lBB DshA6dDDTxVI3jIAz9QUXf OEJpJzypiV6yrVMxGSZawL 3ePYHnZ8NcEkFpa63prOJ4 iuDiQvSiYNDhvz4edH7oII Gvfh7lPHWwx3G7LFZad8Z1 GLJhRQ60IOdxEV0jASexTX 4xIGNtLCAwLjYgeCAwLjMg zTYzVyQaC17wBuUlPIlxEB FkFNGidSVdUUdgWHW9Yc6z wTGuEBWrxsK6f2YzTPooDX DtKvnwEKGsFLkylZFfDB1T DTCdJZhfjnVaBO6PSKHwZJ pcQPEevJHXOIL3WO2fSWan gORdokofAKEhZ5UpI0Hbui WeiDLfTYUloxUjg1cmSYZ9 XHNsbXVsdDBcZnMxNlxwYX F9HGi0KTbhMLOxH0SpT7Wc KYexYAO9THFcLcHsCIHqIB CGWpQiMxUvQpQ8Qed7GePt NVk3PBfiX1LGGLPkJMT5VV N6WTI6MdF6NPs4FXBOEr5h TSYiOKC9MvD8DGM1CaK6KZ xcdCAyIFxcZiBBcmlhbCBc HCJgOEjdbdW6SGBqIXFqaE jdsH1xNe2zQU9qkAFrJISl iF2hOP8zJmowiHYoXONwBJ 8gdQ5gLagfJKYoVQaeUXUn W72od5XCy3RkTO2NOBi6rm HtporqqG2jRSTywdZwLVeh dTSiD3zyU3HcIKNoMgNuPc XiHFt0YFKvdN4fEt3pgAMv fW5abVNnPZedMVY4vBOoFY EsIRAcFEVzXF18XTmYMFNz bmFtZSwgbWVkaWNhbCByZW NvcmQgbnVtYmVyIGFuZCBc wPpjOiKjTTz1E0OgfVcvLN Eys4vsht6efYduxWPxh9Xk iyRyjecfRRQsRBTrb09cjO O7wlFdRiHjfXm1wCFaZYT3 FJ4gcLtnpklpbQPkWJr7uB FrCVCnZkVfcXjtv2PcASed LjQgeCAyLjEgeCAwLjQgY2 8ynV9bONgcldPhNYNtKM7g OBEwISVicHLdsI7pooXfuj ZwoVCkxBW5WSMghA5ssA89 dqXrmpSMWE3vcLUuXG2IGF BhciANClxjZjBcZnMyMiAN ClxwbGFpblxlcGljTmVzdE JnUpYxiLvuxC97DMIqkNIy INW8BO5zVZIsqyltCFLsFE SdRYX9SXguoU89uBQeWUPg XGZveYLlwI7Al8nkYXDcuP EmZXR1AZrisJQeKCXeGFGi LYpsZjCxN1OAQQSrEzHwOW A5VVOsWJg5XIs6JQ9FFdXc DYXxJRUfHgO2MTXoDBd5QH foOP2OTFI1Ews3NXD6BKR3 NTMyOCBcXHQgMiBcXGYgQX StLZguGSjqfINrXH4hoZor roE9DEQtXTefEACzRQKqaE mnWBNQz7qhtxMnESLyK2o1 G5CvN2AeNNofQl7imGPdIY 3MSRDxyVQKLAA8EL6pMXJN ClxsdHJwYXJcbGluMFxyaW 9mVB8JHJh3bpJwOKVsPXzc jyFyVQAnU1MadlUsRBzjLS Cixv5bhBjoKEzfIaRoZCLm x9s7iVP9sTHntUC8sGJyoL sdBxYvGK4pzFVzYV5gYWqh CBnqjaFjv6ClEU49xILlud BuniKjHZN6IjVmHDypWVVq c2z8dRomM72ee76yjvzjeW TwDCEwMP8zgL6mHqZxzgUe X23xz7sroYPsr6QskCRwmH lwbGUgdGFuLXBpbmssIHBl FNUdH0MyQCRgEHQte2K7WD Yvv5K3RTQvAv69PSzhOc4c TOtlAH03RPEcGRcrUSTmW6 QcT3C8PPkdFJNHiBAhp6Sq Z3hfHY0zdLRna3NebGo0nT IkTMjwODVprF0tjY2uBmUc XHBhciANClxwYXIgDQpcY2 EjQKAwDkQrLNgkvMkbsS5d ELVaS83wg6AHb3ZmGRBvAU vsh7wmcVkaa3TxfNJpCBgz YAWlsZIvXUpplT0ePzBti1 kwjXw2KYpjuxN4NBEtki1D YskcNvdmfEier0ZyfGClIH toQFLwOESiHMtzMKZhJU3U SdWxSGbILqzjECkpYkX5WW z7BTBGGdQjXmSjZjumXRJ3 OqAlYHn6FIm4KYmFCzC5JA Y9ROYwJtMtSMIbCkhcFUx9 IDIgXFxmIEFyaWFsIFxcZm fuSFqyI66aRdElThzcvDMt opGQRaMCc1c9tQlwD16qp8 1hPBKQoqEdt8HablNfDtrw XTUfLIlaQPBoU81at6ISl2 IoQA4JBFa8zhSroljdyV7t CAGmspTbLZewqFLuG0vtE3 XkOYRnBuTkEgGiZKs1JQWr aY6sRc1riNCucT1lpEKoPR cgOGM1kCRjTYDuECKsQSVw AI61SRyDCJUmroTzNMgutU VkaWNhbCByZWNvcmQgbnVt YmVyIGFuZCBcdTgyMjAgXC n6Q7KxfRfgMZJnc7aevy83 mtQyo7VputFcKLBhgMEfMP 4gSljsaH87IPYwMPCiSFEw bEtuQBsjWuVyjjWzA76lb2 poaQAsh1UvtBNtiBonhPBn dGFuLXBpbmssIHBlZHVuY3 QbHNLwOBHft5O0CLFdy0H3 SGXnAf7oYAskOg9qFOgfEG 82QBYpITsdZIQaR1CzL9A6 FGgvPYIDiHXfd6BwK0qqEU 2ctZGum5VekZw7yLLbVEfy ZGFboI6jwH1cYORpLNIfNO NieiRZGildHXHxZTxLw2Mk uGhyMYFzI2a1m81wC8zcyV UcSIPKGWP5ySFaqxXmkIRg EW5WTIVbkfOCTagpDgThCm MyMiANClxwbGFpblxlcGlj PlIlaTYgBcZreEfffO72LR SgjMZqXHV8AO1fZZPuobkn QDBnDFZgPYR5QPbwjD84uX GgECXzYFQzdVBedD4VCKSd GNJ7JKmqbA17cGMcZE0DLK JvOTF1RVVfsYErSVX5AE2a fQ0KfQ== MICROSCOPIC DESCRIPTION b5ypcRQqAEQdfVC3ZmMgWJ (test code = 3371) Izi6ani9UqjPKmcNFoFFda rIPqvmXtuu65cWQ9qX32OC 1iVXKpSaB4MHCjeqX9Fjs8 UZAyPSPtcVWqL405d9zla7 onwpRgvMN0lYgnURJazczn MuO4VHouSTWqrlbiTOu6YG uzICOfmKB5KOQfpMTzR9Fw NCXcXV0dtfu0AMX3JAtmOM KiVqW5FVDdbCQsMSUceLfv UKljc825ABP8CoNnCLEjto JdmSlbqP2aHnTwSEMFBVUn v1SyMISpIUAgmsqvNCCjBX Bhcn0= [facility] [id number] 09:50:09 Test Item Value Reference Range Interpretation Comments Case Report (test code Surgical Pathology = 104) Report Case: [id number] Authorizing Provider: CamachoAngela cerda Collected: 07/03/2021 03:04 PM MD Brian Ordering Location: [address] Received: 07/06/2021 09:08 AM Service Pathologist: [...] clip x 1 DIAGNOSIS (test code = [id number] 3220) FuZzEwMzNcZnRuYmpcdWMx IHtccnRmMVxlcGljOTYwMV mxjkQtUDDnbAIaO9Mtzgke XRyxHC7iTF2opGogwRHbsX FsQDSfQxYeo1mab780lIAa l4haFLLAyqroaNp3fIwzY2 8cc5R7OqxtC28cpHElDKG5 JZToPGUodNDqVXDfFVT5PQ TgsJJnE9ffQRJzWM5rvwpi SHboYYkgMFVkfSH2QWUyzS DlR7MoPPLbQFyuFDNgxfh2 TcYhEy0snIElwZhzIOjwXR UfNAMeAFmaCVFkInXwJW2u R19DO75mBBXDK2VEYWDREL bRPLUFWH9UK2u6UEYhfgRp LSAgVFVCVUxBUiBBREVOT0 2HAESoofnsYTPnVu3pA47L R47yHDCHL5eTB0VNC9FQVF yHQgCBC7gVWQuqOiqDTLKZ DbzmKTVtOL7oHS5RSVGYMM zJKPLSUVyLRR4YAsCTCdAC EMZVMBXWKCQTSN1DNOHmvY FyICAtICBORUdBVElWRSBG E3LkJUuLYB6HEzDJWIWLTJ POWDZKUBTiC3NqGSDRQEtA OK4PDVdsSNKqqRQmEGBwII VQOE6TENUEOGdMAO2TW5QJ ZgEIRigmBZ0RZFZuDCSSW1 BTWTpccGFyICAtICBNVUxU SVBMRSBGUkFHTUVOVFMgT0 KhAZMVPPxMHtIHRFPFM17O XHBhciAgLSAgTkVHQVRJVk MjQx6MBYmBJ7bwZ4SDLUWs QOhLNFpSD2zQMY6URR3SEU xYPzEMP7vroLEwADGahyGz jOPpTREsZUKODC8TCYJODy KGK2LZOzKLOZOWKUoIGZSE NT9YC3d5YWMknzXgJXCqUZ ZFXBaDJOZtFcKYO10DXjIU NK9BDCMCGmMTOZBmPOJSTz 3WRBcrCLGxZR9hTZ5CC7HA SVZFIEZPUiBISUdILUdSQU FQKQZDH7VLIPKPUMAXOsCT MSxSF79RCnESDEAhwr47OX T4NyCzm1C9ZVZ3SZToGUAg g0nwYVSnoRBjXcNyEjHrFj WuQcsxcOOjDDEgLwYft0jf v474dJYjd5whCYHkMbF4qC XkFMOkgAQgY748RFCuJDea a5nro4HuQAQncMGtz0O7WV PTchsdlCu7dRcfN93vf1D4 XynlC1tuBYZuFIKwT7SjQV 4kOCKqPjl1ESS1FQW7NBFz XSNkV6ZpWV3jTGTgaMHjXI e8n1ribHbcOYDdLPF0r4jw WAzqhrRxAY2iah9drPf0d8 xjczEgRGVmYXVsdCBQYXJh L8SutNfwUa9lsEo4jArhYn hpGQL7Ira4KO4hps35xbq9 hUymYLBkxsejDsU4SHpkGL UgdmtiUJl7JIjlQBSkyKO2 CYPqvPAsR1StMKEtYG0jgd j6KLL3DSwhZBDePpZ1JZIk vDVtSFGyqCepGEecn740YV Z8AiFqNF6zW3Qjk4Z5eS5m aXRcZGVmdGFiNzIwXGZvcm 6ktVSoFFkox0ItCHU5olJ2 xXCoeCYzENInHjV1NVgkJR 0ylt89PAGjCGA6fd9qrGQu jKtpcvUhrHDiHYbjL4OkNZ Hgf964TPZfS7KsFOYvt5Z2 bbWyMcJeFQNdvPJ6yiA6MU YbDC9llmltm8qnRHlsPLyr MOWmmfK2abO1BROvrRPeD8 RekI9fCCSuCQ5xrhqar9ec JNH6XYsuCQKoGUE2PnEeHU Sws0Mmspx9YlTug0PicENd STeqZ00ad318PVElvkInR4 xwbGFpblxwbGFpblxmMFxm tbN0WAVrSAhhvgefBHQjJB lyU0ffRdJyZPEquLniFDda r3TiKUEmTLFkTbOzlRMxNZ GlVtx4GVGmnZJyHNWdHkGd A9kpsffxOqJOFNQvf8reT9 wznUJZeXSiJ8VzFStigzQa ZGiwNTyzIDFgTDO2TZ6qHX UgMETwwx77 CPT Code(s) (test code f4ugrTDzYEPpcOQ4UlQoUQ = 3068) Ofx3zmt6RyiAHdtWBuEXxf kYSfhuIvra89iIW6oW65QR 2kSQVkCxE9RUUtrvV5Yom5 EZGqILAnnJCfG223e3nwg3 cqfiFbqNZ8dNbfPTYczcba ToB4CMjoMEMzakpiNBc9ND ylKXOvyFK6VTLteNKiV9Hr HNItAD6okfb2DGJ7DAfxGZ KxPqQ7FLAdfNDgZJTimHpg KEmef005SAB8BpSlWOGpge RzuOtshN9uSlKkDLK4JUJa SNl2HDFfbs4= CLINICAL HISTORY (test f6cmjALrTXIatKG4NiMjIM code = 3356) Znz7vbx0OscDHupBOlAOwv zWJuoaPoie96lHK9wM59RR 3nPXDyGmA4PTLshkR5Epa9 EOZaHEQpjNQnT251e8pst3 ncndFyvCT7CHAhQMIvR9Uw HK5rOPOwpHPgU94fxGPrOW R5KZGjYZRyiLZgXODuRSO5 XUUczLOcD8rsNTGqMA3guq yoAEiuWLrjNJThdIM7IKZa kZKpW8HgJWOaWDvuKWCrfm u2GuAwTo4veSFmiNrbZVql YXJkXHJpMVxwbGFpblxmcz OuITKaZJWRle3qZHOyXphm pPXmE6kvCC1ivMfbYDH9ln TkSMDtRdfvTBMczj1uREKq GvxdqDVyZ7nfVE9ixUiaYQ G4rNJtCCJdut1= GROSS DESCRIPTION (test x7ibtUZlUGTwcNLEOJWmOi code = [id number]) jkoyRsXDUvqDMiQ3Bharlh TLbtER7bXS0idGwrmBDmjC DjNS4AKAMnMaAeRQFqbHIz rsNeVgEeTBHxyMWerEH1XD EcSY9jkqmvINklDStaLLHh ciR5RQCygMPzG0NbOOEtTX 8pmssxBZV7LIswsC0afkOE TcptPj3lmDGvbXizBbReQd NoYXJzZXQwXGZuaWwgQXJp THn3vS2MGlgbP24eh5M3Ju w3AJMfBXCfD0JiMJ5yYDFl tXHnY40TOyilFUZ3HSZCCq urIIXyOE8Dm7sySOWnnZRb PMR3DNbymINzBXFfHUBsFB h4TGMcCBirnITcOG8xmFus LixqpHirm2FvrIRxCVedCY QqPWFiYNyiPNFkAL9LJeJj KMiXRfwvRRcdLpN7BGa3YW QXPqRjDsIdTcsqLKG1OIcu DPx7JLj1DXsFTxL8CTT3YF ZcHMzwTIIjOoajBWo8FOWg XFxmIEFyaWFsIFxcZmwgXF kjG26cqIxncZ2wMS8sQN9s yYCeGICpvN7qSU6iA0BclT 0uXHBhciANClxlcGljTmVz dERvYzEgDQpcbHRycGFyXG xpbjBccmluMCANClxsdHJj aFxjZjFcZnMyMCBSZWNlaX UjLBXmegHck2IpORbvfaTk YWJlbGVkIHdpdGggdGhlIH QhxVjjwnLqA3F2hgJcOA3r APBnAGSfH8DhFAPgN74aLW OqpZ3eNWDqKM0hMUb8SZHb YOYeWtohhG3cpYQvVUPgbX 2gIATaS6TcZsDri68okMW2 rcRvEyKnMKMwre9hbW4wOH Kbkw6tPRZxy1P9KAVta1P2 UEYoKJ27KCtjSJ8aIXkjPC 4xIGNtLCAwLjYgeCAwLjMg jNDoJeXbN24fAbCkPXgrCJ IdIFKhyLEoSIeuRSI0At5r zFLfTSZenhV0f3RdCHvoMG UcVqdgQMEkTZoutZNlAP0T LDPbITtnolFiCE1QFJIcZR vbKKCtqNBAJES9YU8lPCdx yWIwsiuhKKXbC1BfK4Qnwu RgvTZsNBXufoGtc5psVNU6 XHNsbXVsdDBcZnMxNlxwYX U3LXw5NEvqLXVaK7KjD6Mu OFxbSBX1ASPgBzZeXMPhHB TNXhXjWlGyVtJ4Tvu5CaCq TLo9ZSxhK1IDHEJkACD9WZ I5BMX1CbK6VXy7RASOSp1a ISLuELA3WqI8TYW6IpD9OO xcdCAyIFxcZiBBcmlhbCBc NPCzWLqfctS5WHObWOPyeT mzaT3hEm0oZA9klWBuJOOt eI4mLC7tAwnrfVObWPUbXE 4urY8oImdgKQIlAIzvRYHj S87hk0APr5BvKJ7UBTg2wc KnvtvqqW2hXKEmdjRwHUcx vXDrR0axH3RuITBlJmAaGh QrIIe6EWJagA2bGn1jmVVm gA3blPGxJOcdAGB8jZVhQW JyGBRlEWYbNP00WKzMRSGl bmFtZSwgbWVkaWNhbCByZW NvcmQgbnVtYmVyIGFuZCBc rFnyCgLqPSp0S1TzkUaaKV Typ8ptus0yyBbdkSCyn0Sk jnQzcdoaHHJbRDXoy36zfN W4jzCtVpQrmZf9sSOhBTU5 FU6jxWjmabameDNpOKm7qE WnRSAjLnWfeSlnw2ByWAxa LjQgeCAyLjEgeCAwLjQgY2 6kgF1kPNxxvrInATWjCM0f UCHeUXDwrHJwhH1xqdVxxo QgoVMotVW9KKLsvB9qsV49 ziJvylLNYV0onRZoHO7URS BhciANClxjZjBcZnMyMiAN ClxwbGFpblxlcGljTmVzdE FjVtBmwMhcuP70QLZfbRHb TBJ4OB7zWBRyuxhxDJFfUR PaOHR3JYlkhR93uCXoKWUp LMXejZUkhP3Tx3lkFMIteU PaMIZ3NYojzXHxMJRpDXQj WWnhYuBgJ3SUGNDgVtMxTU H6AVDaONw6KEa5KJ8OQlRr HLIxQXZdLgB3JTCfXBm7QB veLX9IXMZ0Uin9QSP6KML4 NTMyOCBcXHQgMiBcXGYgQX IiEVbqQOswhNXcAT9zpTva gjV2SGNxBCunPHSvGBSftX ysVNVIy3schiHdKTDsY2x7 O4YfQ8WcRVipRj8mpGXjRV 9TNGErmIGNVAV3ZL2mMIKH ClxsdHJwYXJcbGluMFxyaW 3nUM0CNAl0ieZxJVQrANbe sdPgBKCfH0AsksPhDOjcAL Afyh8axYjpMXqlXzRdUVMr i1t7mOL7jLMiuNN1lPMpbS icUrQoBG6zqRVfDD2fWRwd SDhztiWxa5KwZK32vBYqrr OfsoQfCXF2PeQoLQpkQOSq w2n6ePaoH56wo90sljsqyZ AoSIVaUC1uiY3nRuNjxsYs B00uj6olpWEod9BknWWmfM lwbGUgdGFuLXBpbmssIHBl NQDrB8YkFMNwTRTzr8E1DO Ajt5A8MUDmMw88DBycYv1c APlxGF91PBUwKSzbSFFeR8 RfM6M4MAnzKXAKsLJvo4Cw I2boHK6mtOVrd8AggWv5yJ MhLUtpEEEnqZ5jeD6kHhWp XHBhciANClxwYXIgDQpcY2 BhLNAoNpGaEQvbbIdfbM3c CMOrN31jt8GBy4OeISRdMV aqx0zslHmtl1DtsFNiOMcw XWDwyKHgGEbewR9nDuFvu8 voaAw9KEweayB3WKKxmt7P XnehZtvnjDiys9XnlKGpHN guPWAnLBGaQEpbASMnGZ8E ZtViOJbRWloaJCnjXaR8KF s1FGDPUnOfEcOdKuhoVZZ0 XnAeIRv8VCs4GGnHXbJ5QU F2WBYmPfRuKZYdWlczXZj8 IDIgXFxmIEFyaWFsIFxcZm aaLXsaZ28pXqRqRlevqSSb gxCCZpVUe8r2pFnwH43dl9 5sTXXZikKji2UfidYjHwqf NQPzVGaiFOWjE86ag9ABc7 JuQB2HUFi7jeJmiyrhkW1f VDOuxtTpKZkzcDDeN7ceD8 TlIJIuMxTfMfWsIRq8NHGv pU1cSc5nrQEzvW7hsIThLH jaGIM2cLBnGVTqCQCcXKGj PN09GCtAEJBqbsUsMPmwrE VkaWNhbCByZWNvcmQgbnVt YmVyIGFuZCBcdTgyMjAgXC k7B0AceByiKQWyd7eoeu30 itPxl8UggtVaDNVzcEKmUS 7pFgqdiL19SVAtCAOdHTSw nKteAMgaPwLhnlLbX47de1 rumXOhc2EwkFEddIgpzBGo dGFuLXBpbmssIHBlZHVuY3 XwYUYnAHZcw6I7CJVrv5S8 FEKzGs9aYNbrZf6qDHmfKQ 74WGQvLIvfTJFzF1QxH8X8 LDvbDPXBkLHgi3LmW3idVE 7kjJXpm0AzjIj1gVFiMMzd WNWuvB4elW9fVSMhKYYdSB HkweXWDnbdHRHgFQjRu8Oq zEgvPHHeE4v1o06gZ5ivgZ MfRAGHGCR1cMHnbmQedREg HL5JFBCugdGBDhwpYhSwJj MyMiANClxwbGFpblxlcGlj VoVoaBJuFfHqiQlqpU23FJ DnlQFiQUL6BP3rJJHoaxqy WGYqVVYpESE0DXgejP36lS ZwEZPxYZLjkKZkvP3BTDTh GAN0XUgayP75wXKtCQ7OPI XdLVT3YLAyyJXuMSX1KL8v fQ0KfQ== MICROSCOPIC DESCRIPTION i7mokVVoRNWfgVR0MvSbVT (test code = 3371) Hjv0jvm0ZlpMShxBEyRDma aNMimiYjax70sUD1jU40RD 0uVMZqQqT2PHHhymO9Sqx0 AVStROMnkOUqC962a9nru5 bhjpLdxGU0sKspHFScyafc MgC6GHosTSQimnppOXf1ML xmPFDhqBW6ZFRziUSsS2Ul PFPwWQ0fqzj4JWH5GBilDF LvSlJ7HNIlcLNrYKOauUdo EQgvo600CNO5XmCzAEWyuk YupQifnV7yKcApLDXGRLFo e8FzWTOsMAAvszhjRTZzRC Bhcn0= [facility] [id number] 09:50:09 Test Item Value Reference Range Interpretation Comments Case Report (test code Surgical Pathology = 104) Report Case: [id number] Authorizing Provider: Angela Loco Collected: 07/03/2021 03:04 PM MD Brian Ordering Location: [address] Received: 07/06/2021 09:08 AM Service Pathologist: [...] clip x 1 DIAGNOSIS (test code = [id number] 3220) FuZzEwMzNcZnRuYmpcdWMx IHtccnRmMVxlcGljOTYwMV scfeHuQOAivSIgV2Gcuszm WWefZJ6jEQ6soQrmtHUejW AmCADnPaIog6unw435rXWe k9veEICPkkdbtIc8sWbfG6 7vu3A2DgyoA75knDLgKEC4 CDOrNAEbmPDtMAWxTZV0MY OmpBBaL8moJXCyEC5ynlwc RIkfYXfmBRMxfGB8FXWteF XbV3WuRHQsCNifHTCasni1 RoOpRy8elABtgMghXQbwFG TxQUXdTJtlGYBcKiAqBF6t V84RS26pMLUQM3BVEYUUEY hRASSLBQ3QP5b6PNKiaoUh LSAgVFVCVUxBUiBBREVOT0 3DQZLtenenGGBkNx5uM79E A24sFNXRL9mTJ3QER0STWZ iBWtCHN8fRZGfsDsdRFRVC WqrxJOHaUA6dNO2SVIKCBR fMDVLUEDrOPR6HNbQDWaQV CTRXNBEXIVLOWD5CYJEbdL FyICAtICBORUdBVElWRSBG B2VtBWqRFM1EOaBBJXOAWL CLEOZHTBImQ5LvULUFTAiF ED8EALvwNSUtcWNlGIDvJL IBQB9YCQZZYItLZI9PW1ZR HuMVOvnwJD0YYMExISMXJ5 BTWTpccGFyICAtICBNVUxU SVBMRSBGUkFHTUVOVFMgT0 HtYQAYIZoWAsHWUWWME77V XHBhciAgLSAgTkVHQVRJVk ZeQd1KTHuUM2ruD9CHMMNq MFsSGQfFP2sYSJ4MTD5RHX sAOoZGP0boqVPwWXTegkJe sCUzTNVeTSNHAA6KOWBSRr QNM6PFJeODFJPPMZgPHKXB WK4HG3m2CTRsstUbMPWyQN DPWYoFWPYuCzBFG24MFvUG JF8NIAVYTvMQAZXvBDPQFj 4CLCrgMQUqSW3lCF1FY6IY SVZFIEZPUiBISUdILUdSQU LPWGAJW5SHDMQTKRAVCbWP CFuYW68LPdTBTARmyc58SG B5GdCrr6K8IIQ0XUBiGOOp v7eqWQMjuEBgRyViErFxMp LuZngkxDFxXEXzOzJuf8lv d146nVUpy7ikKGQjRqI8dK YqHDDmsEEkK478NCChDXqp c9hig9NaSYOvpSGsn8S8DZ SZjshwsTj6tRblQ19hd8K5 OvawF9tbWRZjOWQyC8ZqRO 8yRHJoQnh6HIF9DYQ0QSDf MKBfV5HvSS8gNVVuuOFmHT q7q9fjtGpdAFKjPNZ0k1jb OGylrtFeRY9des2slCg9z0 xjczEgRGVmYXVsdCBQYXJh F4RdoFjjSv8gySi2bKwkQp qlBPM2Krx8VB7hvh03hms5 yCmoIGTyaqeqUtR0TQkxHS QyfxdoJXk7KKeaVECwwXA9 SCHkeIKcS3SqXBEeCZ2qqg y0LDE6WTgmTZGaDrT1HEEr nWBfKWCliXqeUVrfz596NK I5AmZkLG1pT3Reb0P1iY4v aXRcZGVmdGFiNzIwXGZvcm 7oxUCaXWzsf7GxFTA9aoK8 rPEntOOlRGHaHqN4ZYhaXZ 6cxy69NAOkJHV4pt2ssJEd kLtiizVjpUAeHZtcP4QdVT Nwe431AWYtS8TeAXFcj5A8 buFnVhBiRTVgwJR0muV3XF EfSX4qbsuan3osFKgxWItq KLRvyrB9qlZ1RHWwaNZkI5 MafC9sRLRwDN1ldipya3ou WEP9YEqsUHQyHBM9QcXcDS Qcj7Yzwzz8GyPyz0ShoGCr MMeiG88ks246ACWmdrEhG2 xwbGFpblxwbGFpblxmMFxm koY4GSEnCLarvfmzXWPdZG bbN2glShKzDWUfhNluAIhs v0ItSTRwJZOeAbWjwZAdTP LwBsc7NBPazEZoCUVtExIn U5kfiiapBpYHICUiq8lrP0 mesAPToZJuR5DaHPxhifTs WHifJMssEQXvWPU2HY5tKD JaALJlat50 CPT Code(s) (test code a6ejaAPjZOZftUS4ZlRbLQ = 3002) Igu1jeq8QceWBzvWZsKKbi bEGzvnEioj93dRJ5bC59WM 1vEOGaLhC4OQZktoA2Swa0 NVEiLLRyzQHaG793i3byi1 nubnBuxXN8sTwyUUIsvrqz JmN2CXzjVVKtydooADi0ST jmWIRhiXS9JFHkkGQdI7Ao DLLtUV6xuty3SYJ6CDuuXH OaJyH5JULdlPNfFWFptYub QSzaf146RYD8OaIuZFIymz CncJskrN1nInZcCDE0YQDk XJg4ZOElsr4= CLINICAL HISTORY (test x1damXXcTTUauHR6SnKeLH code = 3356) Jgv1bkj1DvjEWlkKXoGEqh hOTfqhUpnl22hUD5vO28ZR 0tKRUlNpU3GPOqmpQ5Mce2 RXTuMRCifVNwM166f8hnz3 inyyMplUT4LWBcGHJiT2Ou LK0wLIZgyYAbE45xsJCfWV A1LKZbFFJokVQaYBKpEAR9 DQNpnVAtG3kgSYKwYV2pyu fdEWkgIBguLTGtwFX1GYZi iPRfX5QxSZEoOTjkSBOrex b0NhFoFv1moMBsmVntMIui YXJkXHJpMVxwbGFpblxmcz OqGFBxYABHon3gEDCbYnup oKMoD7hqNT6qoQfeTHY1ig RnCGXrOmmvEOClzu3eEPNk YpevjDSnS1uwHS9zoKmeZI G3jYVmBEXfnj4= GROSS DESCRIPTION (test v9tkzQIeHWHpnLCJRAPuCp code = [id number]) gqtgVjWFFwkONyP7Wyqjub HXozAZ9pOX4spTnenTLrnX GrDD2GMMOjFnJuLKSjiBFa dvNgItScZUQosTPuvJZ8LB DjZG0izqjcDIfmFPjfDACp xeJ8EBSjqZWvM4BgTFTzSI 9rluenEFA1BNspzM0lyeBJ LmlaWy2gkMRtxLekHpDzLp NoYXJzZXQwXGZuaWwgQXJp DVs2kF6QMbfvJ60ag7F3Nw t6LHPoPLAuN3GqZG3jNYRl eSYnW53RGvopYRV3DYPDRc paZFKeBO8Ag8wuFUVgwPKq HOT8BOzcrORmZLGpDULwQH v0KERkNUaakBGpHG4naPqr WeydrFjmy2SeaSMlNHvyHS QzCNYcGOdmHIPnBY0IEaSv VPhGBhwiJXnjNsA5YYv5JT ACWzHeBaIdLpvrZIU9IPjb AJl5ULh1HYrPIlB5AIP1XA QfVBszIMCyXnkbBRp0YXOh XFxmIEFyaWFsIFxcZmwgXF lmV87vjYswqT5iEJ4nAJ5r pKIpFKLprG2jVG7xO3SceW 0uXHBhciANClxlcGljTmVz dERvYzEgDQpcbHRycGFyXG xpbjBccmluMCANClxsdHJj aFxjZjFcZnMyMCBSZWNlaX TfOHWiwfMfd5VyAWojylWk YWJlbGVkIHdpdGggdGhlIH GtwIbnshKmB0W0zhWnHJ4f GWOrZUSqE4GxNFVyH10qRF VliW8wDXViKC3lHFs1VLMy JOXdPetyuD3wwTItQFMegF 0eCGIzG0WqEbJjd68pqHL9 neRyQoLmBELtyz6jrW1fNO Rpap6vOSKvx2T9KHAiu4W6 EGFaID39KBjkVC0fNMwbYH 4xIGNtLCAwLjYgeCAwLjMg zNWvSrGhZ88lNdTwPLjjTV JkOLWhjMDvTExtLXT1Yj7t dXGcFOLgtjQ6g1QbMZsyCL GlQlwbUHWoZSwwdEZuIJ6B VRUvNJyrclYnQX4XVJEvAG asPNDkvUSJFYV8BI7dAGrn wGQannpfZOZlX9JyJ6Pwzk EuaRRyNALqwjJyy8chHEJ1 XHNsbXVsdDBcZnMxNlxwYX D4PSd9DRrqYUPpG4PcQ6Vs JJqeWXT9AOKrWmWcPRDhRW CCCgLeLeAcKqY1Ltg3TcOu ICq5WEqvZ6ACHDSgDJX1KM U2QGO2AtG8ZDp7EZDUDm6q QXGpCFA0OkW8RII8CjK8TR xcdCAyIFxcZiBBcmlhbCBc SQOpHWabvkX8BUGkONRcvE apgU9mKu7bCM0yjCJyWQEi dA6qKL3fRncjeZNxKRRpEO 2mtC2aGmcgZUQoWHqiRGCn W60df6BHv1EyWZ7YRLx3dj QaxnjauL9iCOGhueYmOCif uXEpB8awP3NxKXDsKtYnDa CpDKo1VELcaS0lVq4mjQOp rU1iaVVhPPneONF1oFAlTP BuUCDdNXMeWE87RRkMUDOw bmFtZSwgbWVkaWNhbCByZW NvcmQgbnVtYmVyIGFuZCBc cBpvXpTeOLy5V9WreJyxRN Nih4yaah5kdZmxdJIxr6Bx gbCkomnnWWQlDXCdp09kwW X7euCgVcJjtGz1jNAaTXO5 SO0uwEixlthxnNNyTKt0sQ WpKPAbQpZcwGztg4AlWEsg LjQgeCAyLjEgeCAwLjQgY2 5urJ4zPTgtooTwZNKhBS0y XYWzXHLpiETuxM8uxsSwtz ShtDYumFN8ZNLmnC9buP83 joBaktMXXE2lqLShPT2KWF BhciANClxjZjBcZnMyMiAN ClxwbGFpblxlcGljTmVzdE AmTsBnuYfvkR94OWRacXFh ZND5DP1bITRbhbucPYFdKZ HjDNX9RCxveT49zIOoHWXv HMDemYJgcS7Uu9oySCJwdZ HgBYG8MLdbmEPeZBDrSTOi MHtmQhRvS3BQJJRaUcEfVV A5BZIaBLn4UNd0VK7YOsMi ZWAxKVPkIwB5RPDxVCl5VW ayEY7SZPQ7Ndo7ZYJ3GPP3 NTMyOCBcXHQgMiBcXGYgQX IfJEprSZxyiNRaLH1zoSff meE3OZYdUUhcTTOwXERniG zeAVQGy6uogqFdPHKvG6o8 K6SnI8XjSCbyIc4nmJRuRL 6PBGHoxWLBBIG1NY5eXRWY ClxsdHJwYXJcbGluMFxyaW 0dKK7AHPp0kjOeDFQaKWmm qdOeCBReI3OgzsVsATwjOM Wpcs6gfMrsLJlaDgReGSLp j8z3tZV6xOHzcHS0nNWipP rbPpTmEJ7wzUTeLM6rAPgv OWtryaKay9XkQA88nDUogj HyovSfSPE4TdMgVSatQIDe l7k7hVsqV26nd62rkwrjvL BdWMVrRS7prR0uFxOfsaWc V87hw0ovtBEkd5BdvOYagS lwbGUgdGFuLXBpbmssIHBl DOYlZ6NgVUVxGSJwk0C5VZ Krz1M1JIKjCc82ZKufPk9e CGteYJ37XRAnUKtiQBLoO8 EmC2Z1GPllHBYYiFMoh2Zr G8lvTC1ihPVtr5FbkRi3mT OyEGrhDZTbbA8byZ4tAsIi XHBhciANClxwYXIgDQpcY2 QjBZRsZnLnEBhvwXvdyE2l SITbK36zk4OTv6KcZBNmFG tft2rlvSzxg7KuvQIcOHem RTJbfAHtVOcntT9eTkMzd7 dxfQy9VBksvyW2DILigv7U JmklIfkkeGzvc7KppNRhLZ eqVZKfFLHfBUuyXPPcKM8V NlEmUFdVVsvdOZhwEoN5KV t6WBHJYmXpKhGbWswtFHX0 EyYfUIx9LEx7OQoLNoE3WR G4WMDsRxGuILQoWnuoUNj4 IDIgXFxmIEFyaWFsIFxcZm dkKRolD73pNxCzXbuwpPVf jjYNPqOPt4s2wEssP76hv8 5gTDXUoiOrr1ZhgjUkAonj CZYuCPlrAQWaO25sg7HHo3 YvOC1IBEm2njUsjfaygH3i YWKkqdMlHUwftQHqM5dcB2 WzBLGbTwCuZoHiARz7KCUk tH6dYq5xwHTxvP6mgEWkYR afEPN1wAUvFAHtKBHjETKe UN31XOjZZPSitsNaNSaghZ VkaWNhbCByZWNvcmQgbnVt YmVyIGFuZCBcdTgyMjAgXC p9L5EjsArsPHRln4sfuc06 wnOyd1GjutKnIYFzpIGjBP 4lCooubA91NNIiLWDkACZn yJswURfhSpOpkfNtQ93on7 sdiMXzj9ZpxGZueUclwLSv dGFuLXBpbmssIHBlZHVuY3 ZqGNRtCZJoe9B8FLRee2N4 FOKkKw5uTBpwXk5bNIimUA 21WCIvHTonKYKoE7TmZ3X8 HModPFDGbNLgx7NuS2wyRR 2xeCXjo2QrfZk5cHHdYBvo MDWljS8gbW3aJKFlBEThKK AhfySAKbojHKIfWBqVm9Oy tIalVTLdB3b9p33aI6odqX WlEMSINUM3eYZfzqRngTNq MH3FSWOqvdHXFckvZwRtMw MyMiANClxwbGFpblxlcGlj LzPprFXyRrJlmBccbQ22EH PcyGLcUOO7WL2yNJJsilbe TUSzULApLHA5PLqhuQ84gS UcJMEjQVEcwUJlqI7MRFZk OQB6RYggnC69wPTwFD0GDP SuWAY3NYFvlIFrFQH3UL1f fQ0KfQ== MICROSCOPIC DESCRIPTION u3muwOLcOTRldWV8PsNsGU (test code = 3371) Gpm7zym5PixOIfpESsBGoa hKTjhsQlam47mOJ1wS76RT 7wZRDvFgT1FDVnrtO7Sis6 YNUdWEOptFZeS692x6spc3 ugywEziOI1pItnDFQunman WrK6ISrvDQPkjhcvWSf6AO wxVENgnJK3UMHykXLeC0Dx NHAmLA8cxim3FIO1VEshFZ XqVyK4AMUugNLhOEXyhFfi KBcyz415NHG5UgHuDGAjlc AwaAawmG4eGjYmPBXKVAVp k0NxHLJlPTOeokviJFFdJQ Bhcn0= [facility] [id number] 09:50:09Surgical Pathology Report Case: [id number] Authorizing Provider: Angela Loco Collected: 07/03/2021 03:04 PM MD Brian Ordering Location: [address] Received: 07/06/2021 09:08AM Service Pathologist: Michelle [...] OR MALIGNANCY Signing Pathologist Direct Phone Line: [phone] signed by Michelle Fernández MD on 07/07/2021 at 9:50 [id number] deficiency anemia, unspecified iron deficiency anemia type [...] patient's name, medical record number and "polyp, ejnxy-ochzwwljgp-3 taken by hot snare, clip x1" and consists of multiple robert- pink, pedunculated soft tissue (6.0 x 2.2 x 0.4 cm in aggregate). The specimen is submitted in toto in D1-D3.GRICELDA Andrew studentPerformed.POC- Glucose [id number] 08:45:23 Test Item Value Reference Range Interpretation Comments POC-Glucose Meter (test 92 mg/dL 70-110 : TE STED AT [facility] code = 1538) [address] [facility], 770 30: Brewery Worker/Techni kelle ID = [id number] for EDMUNDO BARRAGAN Lab Interpretation (test Normal code = 94826-5) [facility]-Glucose [id number] 08:45:23 Test Item Value Reference Range Interpretation Comments POC-Glucose Meter (test 92 mg/dL 70-110 : TE STED AT [facility] code = 1538) [address] [place] [address], 770 30: Brewery Worker/Techni kelle ID = [id number] for ORPHEY, EDMUNDO Lab Interpretation (test Normal code = 96240-5) [facility]-Glucose [id number] 08:45:23 Test Item Value Reference Range Interpretation Comments POC-Glucose Meter (test 92 mg/dL 70-110 : TE STED AT [facility] code = 1538) [address] [place] [address], [facility] 30: Brewery Worker/Techni kelle ID = [id number] for ORPHEY, EDMUNDO Lab Interpretation (test Normal code = 46029-2) [facility]-Glucose [id number] 08:45:23 Test Item Value Reference Range Interpretation Comments POC-Glucose Meter (test 92 mg/dL 70-110 : TE STED AT [facility] code = 1538) [address] [place] [address], 770 30: Brewery Worker/Techni kelle ID = [id number] for ORPHEY, EDMUNDO Lab Interpretation (test Normal code = 60258-1) [facility]-Glucose [id number] 08:45:23 Test Item Value Reference Range Interpretation Comments POC-Glucose Meter (test 92 mg/dL 70-110 : TE STED AT [facility] code = 1538) [address] [place] [address], 770 30: Brewery Worker/Techni kelle ID = [id number] for ORPHEY, EDMUNDO Lab Interpretation (test Normal code = 66232-1) [facility]-Glucose [id number] 08:45:23 Test Item Value Reference Range Interpretation Comments POC-Glucose Meter (test 92 mg/dL 70-110 : TE STED AT [facility] code = 1538) [address] [place] [address], 770 30: Brewery Worker/Techni kelle ID = [id number] for ORPHEY, EDMUNDO Lab Interpretation (test Normal code = 10440-1) [facility] [id number] 08:45:23 Test Item Value Reference Range Interpretation Comments POC-Glucose Meter (test 92 mg/dL 70-110 : TE STED AT [facility] code = 1538) [address] [place] [address], 770 30: Brewery Worker/Techni kelle ID = [id number] for ORPHEY, EDMUNDO Lab Interpretation (test Normal code = 29802-3) [facility]-Glucose [id number] 08:45:23 Test Item Value Reference Range Interpretation Comments POC-Glucose Meter (test 92 mg/dL 70-110 : TE STED AT [facility] code = 1538) [address] [place] [address], 770 30: Brewery Worker/Techni kelle ID = [id number] for ORPHEY, EDMUNDO Lab Interpretation (test Normal code = 74720-2) [facility]-Glucose [id number] 08:45:23 Test Item Value Reference Range Interpretation Comments POC-Glucose Meter (test 92 mg/dL 70-110 : TE STED AT [facility] code = 1538) [address] [place] [address], 770 30: Brewery Worker/Techni kelle ID = [id number] for ORPHEY, EDMUNDO Lab Interpretation (test Normal code = 47174-9) [facility]-Glucose [id number] 08:45:23 Test Item Value Reference Range Interpretation Comments POC-Glucose Meter (test 92 mg/dL 70-110 : TE STED AT [facility] code = 1538) [address] [place] [address], 770 30: Brewery Worker/Techni kelle ID = [id number] for ORPHEY, EDMUNDO Lab Interpretation (test Normal code = 24002-0) [facility]-Glucose [id number] 08:45:23 Test Item Value Reference Range Interpretation Comments POC-Glucose Meter (test 92 mg/dL 70-110 : TE STED AT [facility] code = 1538) [address] [place] [address], 770 30: Brewery Worker/Techni kelle ID = [id number] for ORPHEY, EDMUNDO Lab Interpretation (test Normal code = 43408-3) [facility]-GLUCOSE [id number] 08:45:23 Test Item Value Reference Range Interpretation Comments POC-GLUCOSE METER 92 mg/dL 70-110 : TESTED A T [facility] 67 (BEAKER) (test code = [place], 1538) [address]: Brewery Worker/Techni kelle ID = [id number] for EDMUNDO DÍAZ RAD, CHEST, 1 VIEW, NON [id number] 07:59:00Reason for exam:->post-opShould this be performed at [...] changes. Additional findings: None. Signed: Bayron Cosme MDRthe [facility] Verified Date/Time:07/04/2021 07:59:51 BASIC METABOLIC [id number] 06:24:45 Test Item Value Reference Range Interpretation [...] S NOT APPLICABLE FOR DIALYSIS PATIEN TS. Brewery Worker ID - [id number] 06:15:51 Test Item Value Reference Range Interpretation Comments MAGNESIUM (BEAKER) (test code = 1.9 mg/dL 1.6-2.6 627) Brewery Worker ID - [id number] 06:15:51 Test Item Value Reference Range Interpretation Comments PHOSPHORUS (BEAKER) (test code = 3.1 mg/dL 2.3-4.7 604) Brewery Worker ID - [id number] (HEMOGRAM ONLY)2021-07-04 05:44:21 Test [...] Not Detected, (test code = Negative, See 00111-5) external report for linked test [facility]OV[facility]2 [facility] (test code = 05201-4) BRANDI (test code = Negative result for [...] the Act. Fact Sheet for Healthcare Providers:https://www.qu idel.com/sites/default/f radha/product/documents/F act_Sheet_HC_Providers_L npc_JMUG-UdR-8.pdf Fact Sheet for Healthcare Patients:https://www.Xenapto/sites/default/fi les/product/documents/Fa ct_Sheet_Patients_Ly_S ARS-CoV-2.pdf Performing Laboratory:[facility] [place] [address] [facility] (Asymptomatic ONLY)2021-07-04 00:21:04 Test Item Value Reference Range Interpretation Comments SARS-COV2/RT-PCR Negative Not Detected, (test code = Negative, See 91456-7) external report for linked test SARS-COV-2 [facility] PERFORMING [facility] (test code = 93002-3) BRANDI (test code = Negative result for [...] of the Act. Fact Sheet for Healthcare Providers:https://www.ApexPeak/sites/default/f radha/product/documents/F act_Sheet_HC_Providers_L nln_VJDN-TlN-9.pdf Fact Sheet for Healthcare Patients:https://www.Xenapto/sites/default/fi les/product/documents/Fa ct_Sheet_Patients_Lyra_S ARS-CoV-2.pdf Performing Laboratory:[facility] [place] [address] [facility] (Asymptomatic ONLY)2021-07-04 00:21:04 Test Item Value Reference Range Interpretation Comments SARS-COV2/RT-PCR Negative Not Detected, (test code = Negative, See 92204-7) external report for linked test SARS-COV-2 [facility] PERFORM[facility] (test code = 53241-4) BRANDI (test code = Negative result for [...] of the Act. Fact Sheet for Healthcare Providers:https://www.ApexPeak/sites/default/f radha/product/documents/F act_Sheet_HC_Providers_L syj_KTII-QgY-9.pdf Fact Sheet for Healthcare Patients:https://www.Xenapto/sites/default/fi les/product/documents/Fa ct_Sheet_Patients_Lyra_S ARS-CoV-2.pdf Performing Laboratory:[facility] [place] [address] [facility] (Asymptomatic ONLY)2021-07-04 00:21:04 Test Item Value Reference Range Interpretation Comments SARS-COV2/RT-PCR Negative Not Detected, (test code = Negative, See 97410-3) external report for linked test SARS-COV-2 [facility] PERFORM[facility] (test code = 95988-4) BRANDI (test code = Negative result for [...] of the Act. Fact Sheet for Healthcare Providers:https://www.ApexPeak/sites/default/f radha/product/documents/F act_Sheet_HC_Providers_L tmb_EBKQ-UoZ-6.pdf Fact Sheet for Healthcare Patients:https://www.Xenapto/sites/default/fi les/product/documents/Fa ct_Sheet_Patients_Lyra_S ARS-CoV-2.pdf Performing Laboratory:[facility]-CoV2/RT-PCR (Asymptomatic ONLY)2021-07-04 00:21:04 Test Item Value Reference Range Interpretation Comments SARS-COV2/RT-PCR Negative Not Detected, (test code = Negative, See 31930-3) external report for linked test SARS-COV-2 [facility] PER[facility] (test code = 43061-0) BRANDI (test code = Negative result for [...] of the Act. Fact Sheet for Healthcare Providers:https://www.ApexPeak/sites/default/f radha/product/documents/F act_Sheet_HC_Providers_L sbk_RFYF-HbG-3.pdf Fact Sheet for Healthcare Patients:https://www.Xenapto/sites/default/fi les/product/documents/Fa ct_Sheet_Patients_Lyra_S ARS-CoV-2.pdf Performing Laboratory:[facility] [facility] [place] [address] [facility] (Asymptomatic ONLY)2021-07-04 00:21:04 Test Item Value Reference Range Interpretation Comments SARS-COV2/RT-PCR Negative Not Detected, (test code = Negative, See 98080-3) external report for linked test SARS-COV-2 [facility] PER[facility] (test code = 38761-4) BRANDI (test code = Negative result for [...] of the Act. Fact Sheet for Healthcare Providers:https://www.ApexPeak/sites/default/f radha/product/documents/F act_Sheet_HC_Providers_L gyr_UTZA-HsN-2.pdf Fact Sheet for Healthcare Patients:https://www.Xenapto/sites/default/fi les/product/documents/Fa ct_Sheet_Patients_Lyra_S ARS-CoV-2.pdf Performing Laboratory:[facility], [place] [address] [place], [place] [address]ARS-CoV2/RT-PCR (Asymptomatic ONLY)2021-07-04 00:21:04 Test Item Value Reference Range Interpretation Comments SARS-COV2/RT-PCR Negative Not Detected, (test code = Negative, See 22968-6) external report for linked test SARS-COV-2 [facility] (test code = 98834-8) BRANDI (test code = Negative result for [...] of the Act. Fact Sheet for Healthcare Providers:https://www.ApexPeak/sites/default/f radha/product/documents/F act_Sheet_HC_Providers_L koa_SCIV-MjX-9.pdf Fact Sheet for Healthcare Patients:https://www.Xenapto/sites/default/fi les/product/documents/Fa ct_Sheet_Patients_Lyra_S ARS-CoV-2.pdf Performing Laboratory:[facility], [place] [address] [place], [place] [address]ARS-CoV2/RT-PCR (Asymptomatic ONLY)2021-07-04 00:21:04 Test Item Value Reference Range Interpretation Comments SARS-COV2/RT-PCR Negative Not Detected, (test code = Negative, See 80999-2) external report for linked test SARS-COV-2 [facility] (test code = 89656-8) BRANDI (test code = Negative result for [...] of the Act. Fact Sheet for Healthcare Providers:https://www.ApexPeak/sites/default/f radha/product/documents/F act_Sheet_HC_Providers_L mpd_UREY-UqC-9.pdf Fact Sheet for Healthcare Patients:https://www.Xenapto/sites/default/fi les/product/documents/Fa ct_Sheet_Patients_Lyra_S ARS-CoV-2.pdf Performing Laboratory:[facility] [place] [address] [facility] (Asymptomatic ONLY)2021-07-04 00:21:04 Test Item Value Reference Range Interpretation Comments SARS-COV2/RT-PCR Negative Not Detected, (test code = Negative, See 48171-8) external report for linked test SARS-COV-2 [facility] (test code = 55901-7) BRANDI (test code = Negative result for [...] of the Act. Fact Sheet for Healthcare Providers:https://www.Oncos Therapeuticsl.Secure Command/sites/default/f radha/product/documents/F act_Sheet_HC_Providers_L fms_USUT-ExZ-9.pdf Fact Sheet for Healthcare Patients:https://www.Virtualtwo.Secure Command/sites/default/fi les/product/documents/Fa ct_Sheet_Patients_Lyra_S ARS-CoV-2.pdf Performing Laboratory:[facility] [place] [address] [facility]/RT-PCR (Asymptomatic ONLY)2021-07-04 00:21:04 Test Item Value Reference Range Interpretation Comments SARS-COV2/RT-PCR Negative Not Detected, (test code = Negative, See 20344-1) external report for linked test SARS-COV-2 [facility] (test code = 03267-6) BRANDI (test code = Negative result for [...] of the Act. Fact Sheet for Healthcare Providers:https://www.TrackIF idel.Secure Command/sites/default/f radha/product/documents/F act_Sheet_HC_Providers_L tjg_FNDK-JcE-8.pdf Fact Sheet for Healthcare Patients:https://www.ankur del.com/sites/default/fi les/product/documents/Fa ct_Sheet_Patients_Lyra_S ARS-CoV-2.pdf Performing Laboratory:[facility], [place] [address] [place], [place] [address]ARS-CoV2/RT-PCR (Asymptomatic ONLY)2021-07-04 00:21:04 Test Item Value Reference Range Interpretation Comments SARS-COV2/RT-PCR Negative Not Detected, (test code = Negative, See 22899-9) external report for linked test SARS-COV-2 [facility] (test code = 93426-1) BRANDI (test code = Negative result for [...] of the Act. Fact Sheet for Healthcare Providers:https://www.TrackIF ideYoumiam.Secure Command/sites/default/f radha/product/documents/F act_Sheet_HC_Providers_L iua_SNDQ-FwO-1.pdf Fact Sheet for Healthcare Patients:https://www.Checkd.In del.com/sites/default/fi les/product/documents/Fa ct_Sheet_Patients_Lyra_S ARS-CoV-2.pdf Performing Laboratory:[facility] [place] [address] [facility]OV2/[facility] ([facility])2021-07-04 00:21:04 Test Item Value Reference Range Interpretation Comments SARS-COV2/RT-PCR (test Negative Not Detected, Negative, code = 2811698) See external report for linked test SARS-COV-[address] [facility] AL[facility] (test code = 7672433) Negative result for this test determines that [...] of the Act.Fact Sheet for Healthcare Prov iders:https://www.SmartAngels.fr.Secure Command/sites/default/files/product/documents/Fact_Sheet_HC _Gzerwdydu_Wxbe_AJFR-XmL-8.pdfFact Sheet for Healthcare Patients:https://www.SmartAngels.fr.Secure Command/sites/default/files/product/docume nts/Rqvh_Iphwq_Jibjgevk_Rzlf_ZKWN-QlK-2.pdfPerforming Laboratory:[facility], [place] [address]EZUI-BPKBUOA METER 2021-07-03 21:29:18 Test Item Value Reference Range Interpretation Comments POC-GLUCOSE METER 169 mg/dL 70-110 H : TESTED A T [facility] 6720 (BEAKER) (test code = [facility], 1538) [address]: Brewery Worker/Techni kelle ID = [id number] for Co rtez, Keyla POCT-GLUCOSE [id number] 17:51:28 Test Item Value Reference Range Interpretation Comments POC-GLUCOSE METER 110 mg/dL 70-110 : TESTED A T [facility] [address] ([facility]) (test code = [facility], 153) 19148: Brewery Worker/Techni kelle ID = [id number] for OR EDMUNDO BOWIE POCT-GLUCOSE [id number] 16:18:01 Test Item Value Reference Range Interpretation Comments POC-GLUCOSE METER 78 mg/dL 70-110 : TESTED A T [facility] [address] ([facility]) (test code = [facility], 153) 62496: Brewery Worker/Techni kelle ID = [id number] for Naren palacio, Sarwat POC-Glucose [id number] 13:43:00 Test Item Value Reference Range Interpretation Comments POC-Glucose Meter (test 82 mg/dL 70-110 : TE STED AT [facility] code = 1538) [address] [place] [address], 770 30: Brewery Worker/Techni kelle ID = [id number] for RENETTA STEARNS Lab Interpretation (test Normal code = 37013-3) [facility] [id number] 13:43:00 Test Item Value Reference Range Interpretation Comments POC-GLUCOSE METER 82 mg/dL 70-110 : TESTED A T [facility] 6720 (BEAKER) (test code = [facility], 153) 55236: Brewery Worker/Techni kelle ID = [id number] for RENETTA STEARNS POCT-GLUCOSE [id number] 08:55:17 Test Item Value Reference Range Interpretation Comments POC-GLUCOSE METER 85 mg/dL 70-110 : TESTED A T [facility] 67[address] (BEAKER) (test code = [place], 1538) [address]: Brewery Worker/Techni kelle ID = [id number] for EDMUNDO DÍAZ RAD, CHEST, 1 VIEW, NON [id number] 07:19:00Reason for exam:->post-opShould this be performed at [...] [facility] BASIC METABOLIC [id number] 04:12:43 Test Item Value Reference Range Interpretation [...] S NOT APPLICABLE FOR DIALYSIS PATIEN TS. Brewery Worker ID - RAKAN [id number] 03:43:29 Test Item Value Reference Range Interpretation Comments MAGNESIUM (BEAKER) (test code = 2.1 mg/dL 1.6-2.6 627) Brewery Worker ID Bassam [place] [id number] 03:43:29 Test Item Value Reference Range Interpretation Comments PHOSPHORUS (BEAKER) (test code = 3.4 mg/dL 2.3-4.7 604) Brewery Worker ID Bassam [place] [facility] (HEMOGRAM ONLY)2021-07-03 03:25:24 [...] WBC 0-0 (test code = 413) POC-Glucose [id number] 21:37:50 Test Item Value Reference Range Interpretation Comments POC-Glucose Meter (test 97 mg/dL 70-110 : TE STED AT [facility] code = 1538) [address] [facility], 770 30: Brewery Worker/Techni kelle ID = [id number] for PADMINI MACKENZIE Lab Interpretation (test Normal code = 32607-1) [facility] [id number] 21:37:50 Test Item Value Reference Range Interpretation Comments POC-GLUCOSE METER 97 mg/dL 70-110 : TESTED A T [facility] 6720 (BEAKER) (test code = [facility], 153) [address]: Brewery Worker/Techni kelle ID = [id number] for NATALIA ANGELES MACKENZIE POCT-GLUCOSE [id number] 18:00:54 Test Item Value Reference Range Interpretation Comments POC-GLUCOSE METER 166 mg/dL 70-110 H : TESTED A T [facility] 6720 (BEAKER) (test code = [facility], 153) [address]: Brewery Worker/Techni kelle ID = [id number] for Ba rrera, Kayla POCT-GLUCOSE [id number] 13:01:12 Test Item Value Reference Range Interpretation Comments POC-GLUCOSE METER 169 mg/dL 70-110 H : TESTED A T [facility] 6720 (BEAKER) (test code = [facility], 153) [address]: Brewery Worker/Techni kelle ID = [id number] for Ba rrera, Kayla POC-Glucose [id number] 08:45:07 Test Item Value Reference Range Interpretation Comments POC-Glucose Meter (test 134 mg/dL 70-110 H : TE STED AT [facility] code = 1538) [address] [facility], 770 30: Brewery Worker/Techni kelle ID = [id number] for Nawaf Freitas Lab Interpretation (test Abnormal code = 89881-0) [facility] [id number] 08:45:07 Test Item Value Reference Range Interpretation Comments POC-GLUCOSE METER 134 mg/dL 70-110 H : TESTED A T [facility] 67[address] (BEAKER) (test code = YUDY [place] [facility], 1538) [address]: Brewery Worker/Techni kelle ID = [id number] for Kayla Emanuel RAD, CHEST, 1 VIEW, NON [id number] 08:36:00Reason for exam:->post-opShould this be performed at the bedside?->Yes [facility] : 1955 Sex: [...] thickening/scarring or small pleural effusion. Signed: Boogie [place] Verified Date/Time: 07/02/2021 08:36:36 Reading Location: [facility] Radiology Reading Room Basic Metabolic [id number] 07:06:58 Test Item Value Reference Range Interpretation Comments Sodium (test code = 137 meq/L 925-468 4018-2) Potassium (test code = 3.9 meq/L 3.5-5.1 2823-3) Chloride (test code = 101 meq/L 98-107 2075-0) CO2 (test code = 28 meq/L 22-29 2028-9) BUN (test code = 23 mg/dL 7-21 H 3094-0) Creatinine (test code 3.16 mg/dL 0.57-1.25 H = 2160-0) Glucose (test code = 150 mg/dL 70-105 H 2345-7) Calcium (test code = 8.1 mg/dL 8.4-10.2 L 25522-9) EGFR (test code = 15 mL/min/1.73 [place] [address]-0) NOT ACCURATE CREATININE CLEARANCE IN PREDICTING GLOMERULAR FILTRATION RATE . ESTIMATED GFR I S NOT APPLICABLE FOR DIALYSIS PATIENTS. BRANDI (test code = BRANDI) Brewery Worker ID - PIAYA L Lab Interpretation Abnormal (test code = 53008-1) [facility] [id number] 07:06:58 Test Item Value Reference Range Interpretation [...] S NOT APPLICABLE FOR DIALYSIS PATIEN TS. Brewery Worker ID - LIANA WVuduoiitz4255-14-28 07:06:52 Test Item Value Reference Range Interpretation Comments Magnesium (test code = 1.9 mg/dL 1.6-2.6 47229-8) BRANDI (test code = BRANDI) Brewery Worker ID - BURKEKEZIA L Lab Interpretation (test Normal code = 86236-9) [facility]osph[facility]2022-03-31 07:06:52 Test Item Value Reference Range Interpretation Comments Phosphorus (test code = 2.6 mg/dL 2.3-4.7 2777-1) BRANDI (test code = BRANDI) Brewery Worker ID - BURKEKEZIA L Lab Interpretation (test Normal code = 35609-5) [facility]MAGN[facility]IUM2022-03-31 07:06:52 Test Item Value Reference Range Interpretation Comments MAGNESIUM (BEAKER) (test code = 1.9 mg/dL 1.6-2.6 627) Brewery Worker ID - LIANA [id number] 07:06:52 Test Item Value Reference Range Interpretation Comments PHOSPHORUS (BEAKER) (test code = 2.6 mg/dL 2.3-4.7 604) Brewery Worker ID - LIANA LCBC (Hemogram only)2021-07-02 05:56:49 Test Item Value Reference Range Interpretation Comments WBC (test code = 6690-2) 4.6 See_Comment [A utomated message] The system Pixel Qi generated this result transmitted ref erence range: 3.5 - 10 .5 K/L. The refe rence range was not u sed to interpret this result as normal/abnor mal. RBC (test code = 789-8) 2.50 See_Comment L [Au tomated message] The system Pixel Qi generated this result transmitted ref erence range: 3.93 - 5 .22 M/L. The refe rence range was not u sed to interpret this result as normal/abnor mal. MCHC (test code = 786-4) 31.9 See_Comment L [A utomated message] The system Pixel Qi generated this result transmitted ref erence range: [...] L [Aut omated message] 777-3) The system Pixel Qi generated this result transmitted ref erence range: 150 - 45 0 K/CU MM. The referen ce range was not u sed to interpret this result as normal/abnor mal. MPV (test code = 11.3 fL 9.4-12.3 89751-4) nRBC (test code = 413) 0 See_Comment [Aut omated message] The system Pixel Qi generated this result transmitted ref erence range: 0 - 0 /1 00 WBC. The refere nce range was not u sed to interpret this result as normal/abnor mal. Lab Interpretation (test Abnormal code = 99862-1) [facility] (HEMOGRAM ONLY)2021-07-02 05:56:49 Test Item Value [...] WBC 0-0 (test code = 413) POCT-GLUCOSE [id number] 21:57:03 Test Item Value Reference Range Interpretation Comments POC-GLUCOSE METER 179 mg/dL 70-110 H : TESTED A T [facility] 6720 (BEAKER) (test code = [facility], 1538) 13677: Brewery Worker/Techni kelle ID = [id number] for MACKENZIE GONZALEZ POCT-GLUCOSE [id number] 17:59:08 Test Item Value Reference Range Interpretation Comments POC-GLUCOSE METER 208 mg/dL 70-110 H : TESTED A T [facility] 6720 (BEAKER) (test code = [facility], 1538) 28367: Brewery Worker/Techni kelle ID = [id number] for Loco Hicks POCT-GLUCOSE [id number] 13:37:14 Test Item Value Reference Range Interpretation Comments POC-GLUCOSE METER 118 mg/dL 70-110 H : TESTED A T [facility] 6720 (BEAKER) (test code = [facility], 1538) 77375: Brewery Worker/Techni kelle ID = [id number] for Ra nicholasinMillie RAD, CHEST, 1 VIEW, NON [id number] 09:58:00Reason for exam:->post-opShould this be performed at the bedside?->Yes [facility] MONTOYA : 1955 Sex: [...] [facility] Radiology Reading Room POC-Glucose [id number] 08:48:09 Test Item Value Reference Range Interpretation Comments POC-Glucose Meter (test 127 mg/dL 70-110 H : TE STED AT [facility] code = 1538) 67[address] [facility], 770 30: Brewery Worker/Techni kelle ID = [id number] for Loco Chapman Lab Interpretation (test Abnormal code = 54617-1) [facility]PO[facility] [id number] 08:48:09 Test Item Value Reference Range Interpretation Comments POC-GLUCOSE METER 127 mg/dL 70-110 H : TESTED A T [facility] 6720 (BEAKER) (test code = [facility], 1538) 35505: Brewery Worker/Techni kelle ID = [id number] for Loco Hicks Basic Metabolic [id number] 06:34:36 Test Item Value Reference Range Interpretation Comments Sodium (test code = 134 meq/L 136-145 L 2951-2) Potassium (test code = 4.2 meq/L 3.5-5.1 2823-3) Chloride (test code = 99 meq/L 98-107 2074-0) CO2 (test code = 25 meq/L 22-29 2028-9) BUN (test code = 32 mg/dL 7-21 H 3094-0) Creatinine (test code 4.33 mg/dL 0.57-1.25 H = 2160-0) Glucose (test code = 167 mg/dL 70-105 H 2345-7) Calcium (test code = 8.2 mg/dL 8.4-10.2 L 57048-3) EGFR (test code = 10 mL/min/1.[place] [address]-8) NOT ACCURATE CREATININE CLEARANCE IN PREDICTING GLOMERULAR FILTRATION RATE . ESTIMATED GFR I S NOT APPLICABLE FOR DIALYSIS PATIENTS. BRANDI (test code = BRANDI) Brewery Worker ID - LIANA L Lab Interpretation Abnormal (test code = 89192-9) [facility]OLIC [id number] 06:34:36 Test Item Value Reference Range Interpretation [...] S NOT APPLICABLE FOR DIALYSIS PATIEN TS. Brewery Worker ID - LIANA LJjwvigsym4354-29-39 06:26:43 Test Item Value Reference Range Interpretation Comments Magnesium (test code = 2.1 mg/dL 1.6-2.6 26784-2) BRANDI (test code = BRANDI) Brewery Worker ID - LIANA L Lab Interpretation (test Normal code = 02906-8) [facility]Phosphorus2022-03-30 06:26:43 Test Item Value Reference Range Interpretation Comments Phosphorus (test code = 3.6 mg/dL 2.3-4.7 2777-1) BRANDI (test code = BRANDI) Brewery Worker ID - LIANA Guevara Lab Interpretation (test Normal code = 27502-5) [facility] [place]EscywzNPQKZQIJE7563-00-88 06:26:43 Test Item Value Reference Range Interpretation Comments MAGNESIUM (BEAKER) (test code = 2.1 mg/dL 1.6-2.6 627) Brewery Worker ID - LIANA [id number] 06:26:43 Test Item Value Reference Range Interpretation Comments PHOSPHORUS (BEAKER) (test code = 3.6 mg/dL 2.3-4.7 604) Brewery Worker ID - LIANA LCBC (Hemogram only)2021-07-01 05:41:20 Test Item Value Reference Range Interpretation Comments WBC (test code = 6690-2) 4.8 See_Comment [A utomated message] The system Pixel Qi generated this result transmitted ref erence range: 3.5 - 10 .5 K/L. The refe rence range was not u sed to interpret this result as normal/abnor mal. RBC (test code = 789-8) 2.60 See_Comment L [Au tomated message] The system Pixel Qi generated this result transmitted ref erence range: 3.93 - 5 .22 M/L. The refe rence range was not u sed to interpret this result as normal/abnor mal. MCHC (test code = 786-4) 32.1 See_Comment L [A utomated message] The system Pixel Qi generated this result transmitted ref erence range: [...] L [Aut omated message] 777-3) The system Pixel Qi generated this result transmitted ref erence range: 150 - 45 0 K/CU MM. The referen ce range was not u sed to interpret this result as normal/abnor mal. MPV (test code = 11.3 fL 9.4-12.3 84634-1) nRBC (test code = 413) 0 See_Comment [Aut omated message] The system Pixel Qi generated this result transmitted ref erence range: 0 - 0 /1 00 WBC. The refere nce range was not u sed to interpret this result as normal/abnor mal. Lab Interpretation (test Abnormal code = 62627-4) [facility] (HEMOGRAM ONLY)2021-07-01 05:41:20 Test Item Value [...] WBC 0-0 (test code = 413) POCT-GLUCOSE [id number] 21:14:47 Test Item Value Reference Range Interpretation Comments POC-GLUCOSE METER 159 mg/dL 70-110 H : TESTED A T [facility] 6720 (AKASH) (test code = [place] [facility], 1538) 61008: Brewery Worker/Techni kelle ID = [id number] for MACKENZIE GONZALEZ RAD, ABDOMEN/KUB, 1 VIEW [id number] 18:59:00Reason for exam:- >constipationShould this be performed at the bedside?->Yes [facility] 1955 Sex: FFINAL REPORT Exam: RAD, ABDOMEN/KUB, 1 VIEW APDate: 06/30/2021 6:58 PM Indication:constipation COMPARISON: 06/24/2021 DISCUSSION/IMPRESSION: The lower thorax is within normal limits. Nonspecific bowel gas pattern. No evidence of free air within the limitations of this study. Signed: Kb Gregorio Verified Date/Time: 06/30/2021 18:59:30 Reading Location: [address] Reading Room POCT-GLUCOSE [id number] 17:39:03 Test Item Value Reference Range Interpretation Comments POC-GLUCOSE METER 204 mg/dL 70-110 H : TESTED A T [facility] 6720 ([place]) (test code = [place], 153) 335[address]: Brewery Worker/Techni kelle ID = [id number] for OR JAMIR EDMUNDO POCT-GLUCOSE [id number] 12:35:41 Test Item Value Reference Range Interpretation Comments POC-GLUCOSE METER 136 mg/dL 70-110 H : [facility] (test code = [place], 1538) 81647: Brewery Worker/Techni kelle ID = [id number] for OR EDMUNDO BOWIE RAD, CHEST, 1 VIEW, NON [id number] 09:21:00Reason for exam:->post-opShould this be performed at the bedside?->Yes [facility] : 1955 Sex: [...] significant change from prior exam. Signed: Boogie Contehripley [facility] Verified Date/Time: 06/30/2021 09:21:42 Reading Location: [facility] Radiology Reading Room POCT-GLUCOSE [id number] 08:26:49 Test Item Value Reference Range Interpretation Comments POC-GLUCOSE METER 132 mg/dL 70-110 H : TESTED A T [facility] 6720 (AKASH) (test code = [place], 1538) 82166: Brewery Worker/Techni kelle ID = [id number] for OR EDMUNDO BOWIE BASIC METABOLIC [id number] 05:31:46 Test Item Value Reference Range Interpretation [...] S NOT APPLICABLE FOR DIALYSIS PATIEN TS. Brewery Worker ID - BURKEKEZIA [id number] 05:28:01 Test Item Value Reference Range Interpretation Comments MAGNESIUM (BEAKER) (test code = 1.8 mg/dL 1.6-2.6 627) Brewery Worker ID - BURKEKEZIA [id number] 05:28:01 Test Item Value Reference Range Interpretation Comments PHOSPHORUS (BEAKER) (test code = 2.6 mg/dL 2.3-4.7 604) Brewery Worker ID - BURKEKEZIA LCBC (HEMOGRAM ONLY)2021-06-30 05:03:10 Test Item Value [...] 0-0 (test code = 413) Prepare Leuko-Red [id number] 23:54:00 Test Item Value Reference Range Interpretation Comments CROSSMATCH (test code = 2264) COMPATIBLE Unit ABO (test code = O Pos 3730602) UNIT NUMBER (test code = [id number] 934-0) Status (test code = 8168564) [facility] Blood Bank Product (test code RED BLOOD CELLS = 2263) PRODUCT CODE (test code = F7515J71 933-2) [facility]uk[facility]Red [id number] 23:54:00 Test Item Value Reference Range Interpretation Comments CROSSMATCH (test code = 2264) COMPATIBLE Unit ABO (test code = O Pos 4040568) UNIT NUMBER (test code = [id number] 934-0) Status (test code = 8068088) [facility]IN[facility] Blood Bank Product (test code RED BLOOD CELLS = 2263) PRODUCT CODE (test code = V1622U54 933-2) [facility] Leuko-Red [id number] 23:54:00 Test Item Value Reference Range Interpretation Comments CROSSMATCH (test code = 2264) COMPATIBLE Unit ABO (test code = O Pos 5806926) UNIT NUMBER (test code = [id number] 934-0) Status (test code = 6435582) TX_TIMEINCHART Blood Bank Product (test code RED BLOOD CELLS = 2263) PRODUCT CODE (test code = T7860G62 933-2) [facility] Leuko-Red [id number] 23:54:00 Test Item Value Reference Range Interpretation Comments CROSSMATCH (test code = 2264) COMPATIBLE Unit ABO (test code = O Pos 3067001) UNIT NUMBER (test code = [id number] 934-0) Status (test code = 1388696) TX_TIMEINCHART Blood Bank Product (test code RED BLOOD CELLS = 2263) PRODUCT CODE (test code = M4230I00 933-2) [facility] Leuko-Red [id number] 23:54:00 Test Item Value Reference Range Interpretation Comments CROSSMATCH (test code = 2264) COMPATIBLE Unit ABO (test code = O Pos 2135147) UNIT NUMBER (test code = [id number] 934-0) Status (test code = 8811874) [facility] Blood Bank Product (test code RED BLOOD CELLS = 2263) PRODUCT CODE (test code = P0879L31 933-2) [facility] Leuko-Red [id number] 23:54:00 Test Item Value Reference Range Interpretation Comments CROSSMATCH (test code = 2264) COMPATIBLE Unit ABO (test code = O Pos 6553155) UNIT NUMBER (test code = [id number] 934-0) Status (test code = 0186365) TX_TIMEINCHART Blood Bank Product (test code RED BLOOD CELLS = 2263) PRODUCT CODE (test code = T4428G78 933-2) [facility] Leuko-Red [id number] 23:54:00 Test Item Value Reference Range Interpretation Comments CROSSMATCH (test code = 2264) COMPATIBLE Unit ABO (test code = O Pos 9964616) UNIT NUMBER (test code = [id number] 934-0) Status (test code = 0992262) TX_TIMEINCHART Blood Bank Product (test code RED BLOOD CELLS = 2263) PRODUCT CODE (test code = G3336S82 933-2) [facility] Leuko-Red [id number] 23:54:00 Test Item Value Reference Range Interpretation Comments CROSSMATCH (test code = 2264) COMPATIBLE Unit ABO (test code = O Pos 2153465) UNIT NUMBER (test code = [id number] 934-0) Status (test code = 4593492) TX_TIMEINCHART Blood Bank Product (test code RED BLOOD CELLS = 2263) PRODUCT CODE (test code = N5076I53 933-2) [facility] Leuko-Red [id number] 23:54:00 Test Item Value Reference Range Interpretation Comments CROSSMATCH (test code = 2264) COMPATIBLE Unit ABO (test code = O Pos 5892640) UNIT NUMBER (test code = [id number] 934-0) Status (test code = 8587618) TX_TIMEINCHART Blood Bank Product (test code RED BLOOD CELLS = 2263) PRODUCT CODE (test code = E8499Q53 933-2) [facility] Leuko-Red [id number] 23:54:00 Test Item Value Reference Range Interpretation Comments CROSSMATCH (test code = 2264) COMPATIBLE Unit ABO (test code = O Pos 9832307) UNIT NUMBER (test code = [id number] 934-0) Status (test code = 1022230) TX_TIMEINCHART Blood Bank Product (test code RED BLOOD CELLS = 2263) PRODUCT CODE (test code = G3804U84 933-2) [facility] Leuko-Red [id number] 23:54:00 Test Item Value Reference Range Interpretation Comments CROSSMATCH (test code = 2264) COMPATIBLE Unit ABO (test code = O Pos 5116688) UNIT NUMBER (test code = [id number] 934-0) Status (test code = 2858699) TX_TIMEINCHART Blood Bank Product (test code RED BLOOD CELLS = 2263) PRODUCT CODE (test code = T8439N73 933-2) [facility] Leuko-Red [id number] 23:54:00 Test Item Value Reference Range Interpretation Comments CROSSMATCH (test code = 2264) COMPATIBLE Unit ABO (test code = O Pos 9437695) UNIT NUMBER (test code = [id number] 934-0) Status (test code = 7575850) TX_TIMEINCHART Blood Bank Product (test code RED BLOOD CELLS = 2263) PRODUCT CODE (test code = P9414T14 933-2) [facility] Leuko-Red [id number] 23:54:00 Test Item Value Reference Range Interpretation Comments CROSSMATCH (test code = 2264) COMPATIBLE Unit ABO (test code = O Pos 4878774) UNIT NUMBER (test code = [id number] 934-0) Status (test code = 8330605) [facility] Blood Bank Product (test code RED BLOOD CELLS = 2263) PRODUCT CODE (test code = A8408D88 933-2) [facility] Leuko-Red [id number] 23:54:00 Test Item Value Reference Range Interpretation Comments CROSSMATCH (test code = 2264) COMPATIBLE Unit ABO (test code = O Pos 9257029) UNIT NUMBER (test code = [id number] 934-0) Status (test code = 8380676) [facility] Blood Bank Product (test code RED BLOOD CELLS = 2263) PRODUCT CODE (test code = W9153D31 933-2) [facility] CenterPOCT-GLUCOSE [id number] 22:04:06 Test Item Value Reference Range Interpretation Comments POC-GLUCOSE METER 149 mg/dL 70-110 H : TESTED A T [facility] 6720 (BEAKER) (test code = [facility], 1538) 06063: Brewery Worker/Techni kelle ID = [id number] for [place], Ti pastora POCT-GLUCOSE [id number] 17:55:17 Test Item Value Reference Range Interpretation Comments POC-GLUCOSE METER 150 mg/dL 70-110 H : TESTED A T [facility] 6720 (BEAKER) (test code = [facility], 1538) 79524: Brewery Worker/Techni kelle ID = [id number] for EDMUNDO JACKSON POCT-GLUCOSE [id number] 15:31:47 Test Item Value Reference Range Interpretation Comments POC-GLUCOSE METER 155 mg/dL 70-110 H : TESTED A T [facility] 6720 (BEAKER) (test code = [facility], 1538) 22694: Brewery Worker/Techni kelle ID = [id number] for EDMUNDO JACKSON RAD, CHEST, 1 VIEW, NON [id number] 10:41:00Reason for exam:->post-opShould this be performed at the bedside?->Yes [facility] : 1955 Sex: [...] edema or viral pneumonia. Signed: Boogie Conteh MDRepriple[facility] Verified Date/Time: 06/29/2021 10:41:18 Reading Location: [facility] Radiology Reading Room POC-Glucose [id number] 08:51:04 Test Item Value Reference Range Interpretation Comments POC-Glucose Meter (test 208 mg/dL 70-110 H : TE STED AT [facility] code = 1538) [address] [facility], 770 30: Brewery Worker/Techni kelle ID = [id number] for EDMUNDO BARRAGAN Lab Interpretation (test Abnormal code = 78054-7) [facility] CenterPOC-Glucose [id number] 08:51:04 Test Item Value Reference Range Interpretation Comments POC-Glucose Meter (test 208 mg/dL 70-110 H : TE STED [facility] code = 1538) [address] [place] [place], 770 30: Brewery Worker/Techni kelle ID = [id number] for EDMUNDO BARRAGAN Lab Interpretation (test Abnormal code = 49799-9) [facility] CenterPOCT-GLUCOSE [id number] 08:51:04 Test Item Value Reference Range Interpretation Comments POC-GLUCOSE METER 208 mg/dL 70-110 H : TESTED A T [facility] 6720 (BEAKER) (test code = [place] [facility], 1538) 85329: Brewery Worker/Techni kelle ID = [id number] for EDMUNDO JACKSON Basic Metabolic [id number] 06:07:27 Test Item Value Reference Range Interpretation [...] (test code = 8.0 mg/dL 8.4-10.2 L 86825-1) EGFR (test code = 9 mL/min/1.73 [place] [address]-5) NOT ACCURATE CREATININE CLEARANCE IN PREDICTING GLOMERULAR FILTRATION RATE . ESTIMATED GFR I S NOT APPLICABLE FOR DIALYSIS PATIENTS. BRANDI (test code = BRANDI) Brewery Worker ID - HIEN M Lab Interpretation Abnormal (test code = 73533-1) [facility] CenterBasic Metabolic [id number] 06:07:27 Test Item Value Reference Range Interpretation [...] (test code = 8.0 mg/dL 8.4-10.2 L 15834-8) EGFR (test code = 9 mL/min/1.[place] [address]-8) NOT ACCURATE CREATININE CLEARANCE IN PREDICTING GLOMERULAR FILTRATION RATE . ESTIMATED GFR I S NOT APPLICABLE FOR DIALYSIS PATIENTS. BRANDI (test code = BRANDI) Brewery Worker ID - HIEN M Lab Interpretation Abnormal (test code = 04641-9) [facility] Metabolic [id number] 06:07:27 Test Item Value Reference Range Interpretation [...] (test code = 8.0 mg/dL 8.4-10.2 L 16511-5) EGFR (test code = 9 mL/min/1.[place] [address]-6) NOT ACCURATE CREATININE CLEARANCE IN PREDICTING GLOMERULAR FILTRATION RATE . ESTIMATED GFR I S NOT APPLICABLE FOR DIALYSIS PATIENTS. BRANDI (test code = BRANDI) Brewery Worker ID - HIEN M Lab Interpretation Abnormal (test code = 75637-3) [facility] METABOLIC [id number] 06:07:27 Test Item Value Reference Range Interpretation [...] S NOT APPLICABLE FOR DIALYSIS PATIEN TS. Brewery Worker ID - HIEN [id number] 06:05:44 Test Item Value Reference Range Interpretation Comments Phosphorus (test code = 2.5 mg/dL 2.3-4.7 2777-1) BRANDI (test code = BRANDI) Brewery Worker ID - HIEN Lab Interpretation (test Normal code = 39713-9) [facility] CenterPhosphorus2022-03-28 06:05:44 Test Item Value Reference Range Interpretation Comments Phosphorus (test code = 2.5 mg/dL 2.3-4.7 2777-1) BRANDI (test code = BRANDI) Brewery Worker ID - HIEN M Lab Interpretation (test Normal code = 74652-3) [facility] CenterPhosphorus2022-03-28 06:05:44 Test Item Value Reference Range Interpretation Comments Phosphorus (test code = 2.5 mg/dL 2.3-4.7 2777-1) BRANDI (test code = BRANDI) Brewery Worker ID - HIEN M Lab Interpretation (test Normal code = 21796-4) [facility] CenterPHOSPHORUS2022-03-28 06:05:44 Test Item Value Reference Range Interpretation Comments PHOSPHORUS (BEAKER) (test code = 2.5 mg/dL 2.3-4.7 604) Brewery Worker ID - HIEN [id number] 06:05:43 Test Item Value Reference Range Interpretation Comments Magnesium (test code = 2.2 mg/dL 1.6-2.6 36753-9) BRANDI (test code = BRANDI) Brewery Worker ID - HIEN M Lab Interpretation (test Normal code = 30960-7) [facility]2022-03-28 06:05:43 Test Item Value Reference Range Interpretation Comments Magnesium (test code = 2.2 mg/dL 1.6-2.6 96085-1) BRANDI (test code = BRANDI) Brewery Worker ID - HIEN M Lab Interpretation (test Normal code = 25030-2) [facility]2022-03-28 06:05:43 Test Item Value Reference Range Interpretation Comments Magnesium (test code = 2.2 mg/dL 1.6-2.6 71838-9) BRANDI (test code = BRANDI) Brewery Worker ID - HIEN M Lab Interpretation (test Normal code = 81104-3) [facility]2022-03-28 06:05:43 Test Item Value Reference Range Interpretation Comments MAGNESIUM (BEAKER) (test code = 2.2 mg/dL 1.6-2.6 627) Brewery Worker ID - HIEN [facility] (Hemogram only)2021-06-29 05:32:19 Test Item Value Reference Range Interpretation Comments WBC (test code = 6690-2) 4.7 See_Comment [A utomated message] The system Pixel Qi generated this result transmitted ref erence range: 3.5 - 10 .5 K/L. The refe rence range was not u sed to interpret this result as normal/abnor mal. RBC (test code = 789-8) 2.94 See_Comment L [Au tomated message] The system appCREAR generated this result transmitted ref erence range: 3.93 - 5 .22 M/L. The refe rence range was not u sed to interpret this result as normal/abnor mal. MCHC (test code = 786-4) 31.8 See_Comment L [A utomated message] The system Pixel Qi generated this result transmitted ref erence range: [...] L [Aut omated message] 777-3) The system Pixel Qi generated this result transmitted ref erence range: 150 - 45 0 K/CU MM. The referen ce range was not u sed to interpret this result as normal/abnor mal. MPV (test code = 12.2 fL 9.4-12.3 97742-5) nRBC (test code = 413) 0 See_Comment [Aut omated message] The system Pixel Qi generated this result transmitted ref erence range: 0 - 0 /1 00 WBC. The refere nce range was not u sed to interpret this result as normal/abnor mal. Lab Interpretation (test Abnormal code = 29104-4) [facility]CBC (Hem[facility] only)2021-06-29 05:32:19 Test Item Value Reference Range Interpretation Comments WBC (test code = 6690-2) 4.7 See_Comment [A utomated message] The system Pixel Qi generated this result transmitted ref erence range: 3.5 - 10 .5 K/L. The refe rence range was not u sed to interpret this result as normal/abnor mal. RBC (test code = 789-8) 2.94 See_Comment L [Au tomated message] The system Pixel Qi generated this result transmitted ref erence range: 3.93 - 5 .22 M/L. The refe rence range was not u sed to interpret this result as normal/abnor mal. MCHC (test code = 786-4) 31.8 See_Comment L [A utomated message] The system Pixel Qi generated this result transmitted ref erence range: [...] L [Aut omated message] 777-3) The system Pixel [employer] generated this result transmitted ref erence range: 150 - 45 0 K/CU MM. The referen ce range was not u sed to interpret this result as normal/abnor mal. MPV (test code = 12.2 fL 9.4-12.3 84612-8) nRBC (test code = 413) 0 See_Comment [Aut omated message] The system Pixel Qi generated this result transmitted ref erence range: 0 - 0 /1 00 WBC. The refere nce range was not u sed to interpret this result as normal/abnor mal. Lab Interpretation (test Abnormal code = 88251-6) [facility] CenterCB (Hemogram only)2021-06-29 05:32:19 Test Item Value Reference Range Interpretation Comments WBC (test code = 6690-2) 4.7 See_Comment [A utomated message] The system Pixel Qi generated this result transmitted ref erence range: 3.5 - 10 .5 K/L. The refe rence range was not u sed to interpret this result as normal/abnor mal. RBC (test code = 789-8) 2.94 See_Comment L [Au tomated message] The system [employer] generated this result transmitted ref erence range: 3.93 - 5 .22 M/L. The refe rence range was not u sed to interpret this result as normal/abnor mal. MCHC (test code = 786-4) 31.8 See_Comment L [A utomated message] The system [employer] generated this result transmitted ref erence range: [...] L [Aut omated message] 777-3) The system [employer] generated this result transmitted ref erence range: 150 - 45 0 K/CU MM. The referen ce range was not u sed to interpret this result as normal/abnor mal. MPV (test code = 12.2 fL 9.4-12.3 81933-9) nRBC (test code = 413) 0 See_Comment [Aut omated message] The system [employer] generated this result transmitted ref erence range: 0 - 0 /1 00 WBC. The refere nce range was not u sed to interpret this result as normal/abnor mal. Lab Interpretation (test Abnormal code = 99634-2) [facility] (HEMOGRAM ONLY)2021-06-29 05:32:19 Test Item Value [...] WBC 0-0 (test code = 413) POC-Glucose [id number] 19:54:37 Test Item Value Reference Range Interpretation Comments POC-Glucose Meter (test 188 mg/dL 70-110 H : TE STED AT [facility] code = 1538) [address] [facility], 770 30: Brewery Worker/Techni kelle ID = [id number] for [place] Lab Interpretation (test Abnormal code = 38604-6) [facility] [id number] 19:54:37 Test Item Value Reference Range Interpretation Comments POC-GLUCOSE METER 188 mg/dL 70-110 H [facility] (test code = [facility], 1538) [address]: Brewery Worker/Techni kelle ID = [id number] for BURKE CHATA RAMON POCT-GLUCOSE [id number] 17:33:41 Test Item Value Reference Range Interpretation Comments POC-GLUCOSE METER 166 mg/dL 70-110 H : [facility] (test code = [facility], 1538) [address]: Brewery Worker/Techni kelle ID = [id number] for Kayla Emanuel CBC with platelet count + automated [id number] 15:34:06 Test Item Value Reference Range Interpretation Comments WBC (test code = 6690-2) 4.6 See_Comment [A utomated message] The system [employer] generated this result transmitted ref erence range: 3.5 - 10 .5 K/L. The refe rence range was not u sed to interpret this result as normal/abnor mal. RBC (test code = 789-8) 2.86 See_Comment L [Au tomated message] The system [employer] generated this result transmitted ref erence range: 3.93 - 5 .22 M/L. The refe rence range was not u sed to interpret this result as normal/abnor mal. MCHC (test code = 786-4) 32.1 See_Comment L [A utomated message] The system [employer] generated this result transmitted ref erence range: [...] L [Aut omated message] 777-3) The system [employer] generated this result transmitted ref erence range: 150 - 45 0 K/CU MM. The referen ce range was not u sed to interpret this result as normal/abnor mal. MPV (test code = 11.0 fL 9.4-12.3 01548-8) nRBC (test code = 413) 0 See_Comment [Aut omated message] The system [employer] generated this result transmitted ref erence range: [...] See_Comment [Aut omated message] 670) The system [employer] generated this result transmitted ref erence range: 1.56 - 6 .13 K/L. The refe rence range was not u sed to interpret this result as normal/abnor mal. # Lymphs (test code = 0.73 See_Comment L [Auto mated message] 414) The system [employer] generated this result transmitted ref erence range: 1.18 - 3 .74 K/L. The refe rence range was not u sed to interpret this result as normal/abnor mal. # Monos (test code = 0.62 See_Comment H [Autom ated message] 415) The system [employer] generated this result transmitted ref erence range: 0.24 - 0 .36 K/L. The refe rence range was not u sed to interpret this result as normal/abnor mal. # Eos (test code = 416) 0.24 See_Comment [Au tomated message] The system [employer] generated this result transmitted ref erence range: 0.04 - 0 .36 K/L. The refe rence range was not u sed to interpret this result as normal/abnor mal. # Baso (test code = 417) 0.04 See_Comment [A utomated message] The system [employer] generated this result transmitted ref erence range: 0.01 - 0 .08 K/L. The refe rence range was not u sed to interpret this result as normal/abnor mal. Immature 0 % 0-1 Granulocytes-Relative (test code = 2801) Lab Interpretation (test Abnormal code = 35877-4) [facility] with platelet count + automated [id number] 15:34:06 Test Item Value Reference Range Interpretation Comments WBC (test code = 6690-2) 4.6 See_Comment [A utomated message] The system [employer] generated this result transmitted ref erence range: 3.5 - 10 .5 K/L. The refe rence range was not u sed to interpret this result as normal/abnor mal. RBC (test code = 789-8) 2.86 See_Comment L [Au tomated message] The system [employer] generated this result transmitted ref erence range: 3.93 - 5 .22 M/L. The refe rence range was not u sed to interpret this result as normal/abnor mal. MCHC (test code = 786-4) 32.1 See_Comment L [A utomated message] The system [employer] generated this result transmitted ref erence range: [...] L [Aut omated message] 777-3) The system [employer] generated this result transmitted ref erence range: 150 - 45 0 K/CU MM. The referen ce range was not u sed to interpret this result as normal/abnor mal. MPV (test code = 11.0 fL 9.4-12.3 52907-0) nRBC (test code = 413) 0 See_Comment [Aut omated message] The system [employer] generated this result transmitted ref erence range: [...] See_Comment [Aut omated message] 670) The system [employer] generated this result transmitted ref erence range: 1.56 - 6 .13 K/L. The refe rence range was not u sed to interpret this result as normal/abnor mal. # Lymphs (test code = 0.73 See_Comment L [Auto mated message] 414) The system [employer] generated this result transmitted ref erence range: 1.18 - 3 .74 K/L. The refe rence range was not u sed to interpret this result as normal/abnor mal. # Monos (test code = 0.62 See_Comment H [Autom ated message] 415) The system [employer] generated this result transmitted ref erence range: 0.24 - 0 .36 K/L. The refe rence range was not u sed to interpret this result as normal/abnor mal. # Eos (test code = 416) 0.24 See_Comment [Au tomated message] The system [employer] generated this result transmitted ref erence range: 0.04 - 0 .36 K/L. The refe rence range was not u sed to interpret this result as normal/abnor mal. # Baso (test code = 417) 0.04 See_Comment [A utomated message] The system [employer] generated this result transmitted ref erence range: 0.01 - 0 .08 K/L. The refe rence range was not u sed to interpret this result as normal/abnor mal. Immature 0 % 0-1 Granulocytes-Relative (test code = 2801) Lab Interpretation (test Abnormal code = 85783-1) [facility] [id number] 15:34:06 Test Item Value Reference Range Interpretation Comments WBC (test code = 6690-2) 4.6 See_Comment [A utomated message] The system [employer] generated this result transmitted ref erence range: 3.5 - 10 .5 K/L. The refe rence range was not u sed to interpret this result as normal/abnor mal. RBC (test code = 789-8) 2.86 See_Comment L [Au tomated message] The system [employer] generated this result transmitted ref erence range: 3.93 - 5 .22 M/L. The refe rence range was not u sed to interpret this result as normal/abnor mal. MCHC (test code = 786-4) 32.1 See_Comment L [A utomated message] The system [employer] generated this result transmitted ref erence range: [...] = 57 See_Comment L [Aut omated message] 197-3) The system [employer] generated this result transmitted ref erence range: 150 - 45 0 K/CU MM. The referen ce range was not u sed to interpret this result as normal/abnor mal. MPV (test code = 11.0 fL 9.4-12.3 38837-6) nRBC (test code = 413) 0 See_Comment [Aut omated message] The system [employer] generated this result transmitted ref erence range: [...] See_Comment [Aut omated message] 670) The system [employer] generated this result transmitted ref erence range: 1.56 - 6 .13 K/L. The refe rence range was not u sed to interpret this result as normal/abnor mal. # Lymphs (test code = 0.73 See_Comment L [Auto mated message] 414) The system [employer] generated this result transmitted ref erence range: 1.18 - 3 .74 K/L. The refe rence range was not u sed to interpret this result as normal/abnor mal. # Monos (test code = 0.62 See_Comment H [Autom ated message] 415) The system [employer] generated this result transmitted ref erence range: 0.24 - 0 .36 K/L. The refe rence range was not u sed to interpret this result as normal/abnor mal. # Eos (test code = 416) 0.24 See_Comment [Au tomated message] The system [employer] generated this result transmitted ref erence range: 0.04 - 0 .36 K/L. The refe rence range was not u sed to interpret this result as normal/abnor mal. # Baso (test code = 417) 0.04 See_Comment [A utomated message] The system [employer] generated this result transmitted ref erence range: 0.01 - 0 .08 K/L. The refe rence range was not u sed to interpret this result as normal/abnor mal. Immature 0 % 0-1 Granulocytes-Relative (test code = 2801) Lab Interpretation (test Abnormal code = 35689-7) [facility] with platelet count + automated [id number] 15:34:06 Test Item Value Reference Range Interpretation Comments WBC (test code = 6690-2) 4.6 See_Comment [A utomated message] The system [employer] generated this result transmitted ref erence range: 3.5 - 10 .5 K/L. The refe rence range was not u sed to interpret this result as normal/abnor mal. RBC (test code = 789-8) 2.86 See_Comment L [Au tomated message] The system [employer] generated this result transmitted ref erence range: 3.93 - 5 .22 M/L. The refe rence range was not u sed to interpret this result as normal/abnor mal. MCHC (test code = 786-4) 32.1 See_Comment L [A utomated message] The system [employer] generated this result transmitted ref erence range: [...] L [Aut omated message] 777-3) The system [employer] generated this result transmitted ref erence range: 150 - 45 0 K/CU MM. The referen ce range was not u sed to interpret this result as normal/abnor mal. MPV (test code = 11.0 fL 9.4-12.3 50325-7) nRBC (test code = 413) 0 See_Comment [Aut omated message] The system [employer] generated this result transmitted ref erence range: [...] See_Comment [Aut omated message] 670) The system [employer] generated this result transmitted ref erence range: 1.56 - 6 .13 K/L. The refe rence range was not u sed to interpret this result as normal/abnor mal. # Lymphs (test code = 0.73 See_Comment L [Auto mated message] 414) The system [employer] generated this result transmitted ref erence range: 1.18 - 3 .74 K/L. The refe rence range was not u sed to interpret this result as normal/abnor mal. # Monos (test code = 0.62 See_Comment H [Autom ated message] 415) The system [employer] generated this result transmitted ref erence range: 0.24 - 0 .36 K/L. The refe rence range was not u sed to interpret this result as normal/abnor mal. # Eos (test code = 416) 0.24 See_Comment [Au tomated message] The system [employer] generated this result transmitted ref erence range: 0.04 - 0 .36 K/L. The refe rence range was not u sed to interpret this result as normal/abnor mal. # Baso (test code = 417) 0.04 See_Comment [A utomated message] The system [employer] generated this result transmitted ref erence range: 0.01 - 0 .08 K/L. The refe rence range was not u sed to interpret this result as normal/abnor mal. Immature 0 % 0-1 Granulocytes-Relative (test code = 2801) Lab Interpretation (test Abnormal code = 53238-5) [facility] with platelet count + automated [id number] 15:34:06 Test Item Value Reference Range Interpretation Comments WBC (test code = 6690-2) 4.6 See_Comment [A utomated message] The system [employer] generated this result transmitted ref erence range: 3.5 - 10 .5 K/L. The refe rence range was not u sed to interpret this result as normal/abnor mal. RBC (test code = 789-8) 2.86 See_Comment L [Au tomated message] The system [employer] generated this result transmitted ref erence range: 3.93 - 5 .22 M/L. The refe rence range was not u sed to interpret this result as normal/abnor mal. MCHC (test code = 786-4) 32.1 See_Comment L [A utomated message] The system [employer] generated this result transmitted ref erence range: [...] L [Aut omated message] 777-3) The system [employer] generated this result transmitted ref erence range: 150 - 45 0 K/CU MM. The referen ce range was not u sed to interpret this result as normal/abnor mal. MPV (test code = 11.0 fL 9.4-12.3 41052-7) nRBC (test code = 413) 0 See_Comment [Aut omated message] The system [employer] generated this result transmitted ref erence range: [...] See_Comment [Aut omated message] 670) The system [employer] generated this result transmitted ref erence range: 1.56 - 6 .13 K/L. The refe rence range was not u sed to interpret this result as normal/abnor mal. # Lymphs (test code = 0.73 See_Comment L [Auto mated message] 414) The system [employer] generated this result transmitted ref erence range: 1.18 - 3 .74 K/L. The refe rence range was not u sed to interpret this result as normal/abnor mal. # Monos (test code = 0.62 See_Comment H [Autom ated message] 415) The system [employer] generated this result transmitted ref erence range: 0.24 - 0 .36 K/L. The refe rence range was not u sed to interpret this result as normal/abnor mal. # Eos (test code = 416) 0.24 See_Comment [Au tomated message] The system [employer] generated this result transmitted ref erence range: 0.04 - 0 .36 K/L. The refe rence range was not u sed to interpret this result as normal/abnor mal. # Baso (test code = 417) 0.04 See_Comment [A utomated message] The system [employer] generated this result transmitted ref erence range: 0.01 - 0 .08 K/L. The refe rence range was not u sed to interpret this result as normal/abnor mal. Immature 0 % 0-1 Granulocytes-Relative (test code = 2801) Lab Interpretation (test Abnormal code = 95428-1) [facility] with platelet count + automated [id number] 15:34:06 Test Item Value Reference Range Interpretation Comments WBC (test code = 6690-2) 4.6 See_Comment [A utomated message] The system [employer] generated this result transmitted ref erence range: 3.5 - 10 .5 K/L. The refe rence range was not u sed to interpret this result as normal/abnor mal. RBC (test code = 789-8) 2.86 See_Comment L [Au tomated message] The system [employer] generated this result transmitted ref erence range: 3.93 - 5 .22 M/L. The refe rence range was not u sed to interpret this result as normal/abnor mal. MCHC (test code = 786-4) 32.1 See_Comment L [A utomated message] The system [employer] generated this result transmitted ref erence range: [...] L [Aut omated message] 777-3) The system [employer] generated this result transmitted ref erence range: 150 - 45 0 K/CU MM. The referen ce range was not u sed to interpret this result as normal/abnor mal. MPV (test code = 11.0 fL 9.4-12.3 31722-5) nRBC (test code = 413) 0 See_Comment [Aut omated message] The system [employer] generated this result transmitted ref erence range: [...] See_Comment [Aut omated message] 670) The system [employer] generated this result transmitted ref erence range: 1.56 - 6 .13 K/L. The refe rence range was not u sed to interpret this result as normal/abnor mal. # Lymphs (test code = 0.73 See_Comment L [Auto mated message] 414) The system [employer] generated this result transmitted ref erence range: 1.18 - 3 .74 K/L. The refe rence range was not u sed to interpret this result as normal/abnor mal. # Monos (test code = 0.62 See_Comment H [Autom ated message] 415) The system [employer] generated this result transmitted ref erence range: 0.24 - 0 .36 K/L. The refe rence range was not u sed to interpret this result as normal/abnor mal. # Eos (test code = 416) 0.24 See_Comment [Au tomated message] The system [employer] generated this result transmitted ref erence range: 0.04 - 0 .36 K/L. The refe rence range was not u sed to interpret this result as normal/abnor mal. # Baso (test code = 417) 0.04 See_Comment [A utomated message] The system [employer] generated this result transmitted ref erence range: 0.01 - 0 .08 K/L. The refe rence range was not u sed to interpret this result as normal/abnor mal. Immature 0 % 0-1 Granulocytes-Relative (test code = 2801) Lab Interpretation (test Abnormal code = 20581-9) [facility] with platelet count + automated [id number] 15:34:06 Test Item Value Reference Range Interpretation Comments WBC (test code = 6690-2) 4.6 See_Comment [A utomated message] The system [employer] generated this result transmitted ref erence range: 3.5 - 10 .5 K/L. The refe rence range was not u sed to interpret this result as normal/abnor mal. RBC (test code = 789-8) 2.86 See_Comment L [Au tomated message] The system [employer] generated this result transmitted ref erence range: 3.93 - 5 .22 M/L. The refe rence range was not u sed to interpret this result as normal/abnor mal. MCHC (test code = 786-4) 32.1 See_Comment L [A utomated message] The system [employer] generated this result transmitted ref erence range: [...] L [Aut omated message] 777-3) The system [employer] generated this result transmitted ref erence range: 150 - 45 0 K/CU MM. The referen ce range was not u sed to interpret this result as normal/abnor mal. MPV (test code = 11.0 fL 9.4-12.3 42372-8) nRBC (test code = 413) 0 See_Comment [Aut omated message] The system [employer] generated this result transmitted ref erence range: [...] See_Comment [Aut omated message] 670) The system [employer] generated this result transmitted ref erence range: 1.56 - 6 .13 K/L. The refe rence range was not u sed to interpret this result as normal/abnor mal. # Lymphs (test code = 0.73 See_Comment L [Auto mated message] 414) The system [employer] generated this result transmitted ref erence range: 1.18 - 3 .74 K/L. The refe rence range was not u sed to interpret this result as normal/abnor mal. # Monos (test code = 0.62 See_Comment H [Autom ated message] 415) The system [employer] generated this result transmitted ref erence range: 0.24 - 0 .36 K/L. The refe rence range was not u sed to interpret this result as normal/abnor mal. # Eos (test code = 416) 0.24 See_Comment [Au tomated message] The system [employer] generated this result transmitted ref erence range: 0.04 - 0 .36 K/L. The refe rence range was not u sed to interpret this result as normal/abnor mal. # Baso (test code = 417) 0.04 See_Comment [A utomated message] The system [employer] generated this result transmitted ref erence range: 0.01 - 0 .08 K/L. The refe rence range was not u sed to interpret this result as normal/abnor mal. Immature 0 % 0-1 Granulocytes-Relative (test code = 2801) Lab Interpretation (test Abnormal code = 44457-4) [facility] with platelet count + automated [id number] 15:34:06 Test Item Value Reference Range Interpretation Comments WBC (test code = 6690-2) 4.6 See_Comment [A utomated message] The system [employer] generated this result transmitted ref erence range: 3.5 - 10 .5 K/L. The refe rence range was not u sed to interpret this result as normal/abnor mal. RBC (test code = 789-8) 2.86 See_Comment L [Au tomated message] The system [employer] generated this result transmitted ref erence range: 3.93 - 5 .22 M/L. The refe rence range was not u sed to interpret this result as normal/abnor mal. MCHC (test code = 786-4) 32.1 See_Comment L [A utomated message] The system [employer] generated this result transmitted ref erence range: [...] L [Aut omated message] 777-3) The system [employer] generated this result transmitted ref erence range: 150 - 45 0 K/CU MM. The referen ce range was not u sed to interpret this result as normal/abnor mal. MPV (test code = 11.0 fL 9.4-12.3 68911-6) nRBC (test code = 413) 0 See_Comment [Aut omated message] The system [employer] generated this result transmitted ref erence range: [...] See_Comment [Aut omated message] 670) The system [employer] generated this result transmitted ref erence range: 1.56 - 6 .13 K/L. The refe rence range was not u sed to interpret this result as normal/abnor mal. # Lymphs (test code = 0.73 See_Comment L [Auto mated message] 414) The system [employer] generated this result transmitted ref erence range: 1.18 - 3 .74 K/L. The refe rence range was not u sed to interpret this result as normal/abnor mal. # Monos (test code = 0.62 See_Comment H [Autom ated message] 415) The system [employer] generated this result transmitted ref erence range: 0.24 - 0 .36 K/L. The refe rence range was not u sed to interpret this result as normal/abnor mal. # Eos (test code = 416) 0.24 See_Comment [Au tomated message] The system [employer] generated this result transmitted ref erence range: 0.04 - 0 .36 K/L. The refe rence range was not u sed to interpret this result as normal/abnor mal. # Baso (test code = 417) 0.04 See_Comment [A utomated message] The system [employer] generated this result transmitted ref erence range: 0.01 - 0 .08 K/L. The refe rence range was not u sed to interpret this result as normal/abnor mal. Immature 0 % 0-1 Granulocytes-Relative (test code = 2801) Lab Interpretation (test Abnormal code = 21172-0) [facility] with platelet count + automated [id number] 15:34:06 Test Item Value Reference Range Interpretation Comments WBC (test code = 6690-2) 4.6 See_Comment [A utomated message] The system [employer] generated this result transmitted ref erence range: 3.5 - 10 .5 K/L. The refe rence range was not u sed to interpret this result as normal/abnor mal. RBC (test code = 789-8) 2.86 See_Comment L [Au tomated message] The system [employer] generated this result transmitted ref erence range: 3.93 - 5 .22 M/L. The refe rence range was not u sed to interpret this result as normal/abnor mal. MCHC (test code = 786-4) 32.1 See_Comment L [A utomated message] The system [employer] generated this result transmitted ref erence range: [...] L [Aut omated message] 777-3) The system [employer] generated this result transmitted ref erence range: 150 - 45 0 K/CU MM. The referen ce range was not u sed to interpret this result as normal/abnor mal. MPV (test code = 11.0 fL 9.4-12.3 51023-9) nRBC (test code = 413) 0 See_Comment [Aut omated message] The system [employer] generated this result transmitted ref erence range: [...] See_Comment [Aut omated message] 670) The system [employer] generated this result transmitted ref erence range: 1.56 - 6 .13 K/L. The refe rence range was not u sed to interpret this result as normal/abnor mal. # Lymphs (test code = 0.73 See_Comment L [Auto mated message] 414) The system [employer] generated this result transmitted ref erence range: 1.18 - 3 .74 K/L. The refe rence range was not u sed to interpret this result as normal/abnor mal. # Monos (test code = 0.62 See_Comment H [Autom ated message] 415) The system [employer] generated this result transmitted ref erence range: 0.24 - 0 .36 K/L. The refe rence range was not u sed to interpret this result as normal/abnor mal. # Eos (test code = 416) 0.24 See_Comment [Au tomated message] The system [employer] generated this result transmitted ref erence range: 0.04 - 0 .36 K/L. The refe rence range was not u sed to interpret this result as normal/abnor mal. # Baso (test code = 417) 0.04 See_Comment [A utomated message] The system [employer] generated this result transmitted ref erence range: 0.01 - 0 .08 K/L. The refe rence range was not u sed to interpret this result as normal/abnor mal. Immature 0 % 0-1 Granulocytes-Relative (test code = 2801) Lab Interpretation (test Abnormal code = 82731-5) [facility] with platelet count + automated [id number] 15:34:06 Test Item Value Reference Range Interpretation Comments WBC (test code = 6690-2) 4.6 See_Comment [A utomated message] The system [employer] generated this result transmitted ref erence range: 3.5 - 10 .5 K/L. The refe rence range was not u sed to interpret this result as normal/abnor mal. RBC (test code = 789-8) 2.86 See_Comment L [Au tomated message] The system [employer] generated this result transmitted ref erence range: 3.93 - 5 .22 M/L. The refe rence range was not u sed to interpret this result as normal/abnor mal. MCHC (test code = 786-4) 32.1 See_Comment L [A utomated message] The system [employer] generated this result transmitted ref erence range: [...] L [Aut omated message] 777-3) The system [employer] generated this result transmitted ref erence range: 150 - 45 0 K/CU MM. The referen ce range was not u sed to interpret this result as normal/abnor mal. MPV (test code = 11.0 fL 9.4-12.3 48776-2) nRBC (test code = 413) 0 See_Comment [Aut omated message] The system [employer] generated this result transmitted ref erence range: [...] See_Comment [Aut omated message] 670) The system [employer] generated this result transmitted ref erence range: 1.56 - 6 .13 K/L. The refe rence range was not u sed to interpret this result as normal/abnor mal. # Lymphs (test code = 0.73 See_Comment L [Auto mated message] 414) The system [employer] generated this result transmitted ref erence range: 1.18 - 3 .74 K/L. The refe rence range was not u sed to interpret this result as normal/abnor mal. # Monos (test code = 0.62 See_Comment H [Autom ated message] 415) The system [employer] generated this result transmitted ref erence range: 0.24 - 0 .36 K/L. The refe rence range was not u sed to interpret this result as normal/abnor mal. # Eos (test code = 416) 0.24 See_Comment [Au tomated message] The system [employer] generated this result transmitted ref erence range: 0.04 - 0 .36 K/L. The refe rence range was not u sed to interpret this result as normal/abnor mal. # Baso (test code = 417) 0.04 See_Comment [A utomated message] The system [employer] generated this result transmitted ref erence range: 0.01 - 0 .08 K/L. The refe rence range was not u sed to interpret this result as normal/abnor mal. Immature 0 % 0-1 Granulocytes-Relative (test code = 2801) Lab Interpretation (test Abnormal code = 85406-8) [facility] with platelet count + automated [id number] 15:34:06 Test Item Value Reference Range Interpretation Comments WBC (test code = 6690-2) 4.6 See_Comment [A utomated message] The system [employer] generated this result transmitted ref erence range: 3.5 - 10 .5 K/L. The refe rence range was not u sed to interpret this result as normal/abnor mal. RBC (test code = 789-8) 2.86 See_Comment L [Au tomated message] The system [employer] generated this result transmitted ref erence range: 3.93 - 5 .22 M/L. The refe rence range was not u sed to interpret this result as normal/abnor mal. MCHC (test code = 786-4) 32.1 See_Comment L [A utomated message] The system [employer] generated this result transmitted ref erence range: [...] L [Aut omated message] 777-3) The system [employer] generated this result transmitted ref erence range: 150 - 45 0 K/CU MM. The referen ce range was not u sed to interpret this result as normal/abnor mal. MPV (test code = 11.0 fL 9.4-12.3 46357-9) nRBC (test code = 413) 0 See_Comment [Aut omated message] The system [employer] generated this result transmitted ref erence range: [...] See_Comment [Aut omated message] 670) The system [employer] generated this result transmitted ref erence range: 1.56 - 6 .13 K/L. The refe rence range was not u sed to interpret this result as normal/abnor mal. # Lymphs (test code = 0.73 See_Comment L [Auto mated message] 414) The system [employer] generated this result transmitted ref erence range: 1.18 - 3 .74 K/L. The refe rence range was not u sed to interpret this result as normal/abnor mal. # Monos (test code = 0.62 See_Comment H [Autom ated message] 415) The system [employer] generated this result transmitted ref erence range: 0.24 - 0 .36 K/L. The refe rence range was not u sed to interpret this result as normal/abnor mal. # Eos (test code = 416) 0.24 See_Comment [Au tomated message] The system [employer] generated this result transmitted ref erence range: 0.04 - 0 .36 K/L. The refe rence range was not u sed to interpret this result as normal/abnor mal. # Baso (test code = 417) 0.04 See_Comment [A utomated message] The system [employer] generated this result transmitted ref erence range: 0.01 - 0 .08 K/L. The refe rence range was not u sed to interpret this result as normal/abnor mal. Immature 0 % 0-1 Granulocytes-Relative (test code = 2801) Lab Interpretation (test Abnormal code = 78927-2) [facility] with platelet count + automated [id number] 15:34:06 Test Item Value Reference Range Interpretation Comments WBC (test code = 6690-2) 4.6 See_Comment [A utomated message] The system [employer] generated this result transmitted ref erence range: 3.5 - 10 .5 K/L. The refe rence range was not u sed to interpret this result as normal/abnor mal. RBC (test code = 789-8) 2.86 See_Comment L [Au tomated message] The system [employer] generated this result transmitted ref erence range: 3.93 - 5 .22 M/L. The refe rence range was not u sed to interpret this result as normal/abnor mal. MCHC (test code = 786-4) 32.1 See_Comment L [A utomated message] The system [employer] generated this result transmitted ref erence range: [...] L [Aut omated message] 777-3) The system [employer] generated this result transmitted ref erence range: 150 - 45 0 K/CU MM. The referen ce range was not u sed to interpret this result as normal/abnor mal. MPV (test code = 11.0 fL 9.4-12.3 01671-1) nRBC (test code = 413) 0 See_Comment [Aut omated message] The system [employer] generated this result transmitted ref erence range: [...] See_Comment [Aut omated message] 670) The system [employer] generated this result transmitted ref erence range: 1.56 - 6 .13 K/L. The refe rence range was not u sed to interpret this result as normal/abnor mal. # Lymphs (test code = 0.73 See_Comment L [Auto mated message] 414) The system [employer] generated this result transmitted ref erence range: 1.18 - 3 .74 K/L. The refe rence range was not u sed to interpret this result as normal/abnor mal. # Monos (test code = 0.62 See_Comment H [Autom ated message] 415) The system [employer] generated this result transmitted ref erence range: 0.24 - 0 .36 K/L. The refe rence range was not u sed to interpret this result as normal/abnor mal. # Eos (test code = 416) 0.24 See_Comment [Au tomated message] The system [employer] generated this result transmitted ref erence range: 0.04 - 0 .36 K/L. The refe rence range was not u sed to interpret this result as normal/abnor mal. # Baso (test code = 417) 0.04 See_Comment [A utomated message] The system [employer] generated this result transmitted ref erence range: 0.01 - 0 .08 K/L. The refe rence range was not u sed to interpret this result as normal/abnor mal. Immature 0 % 0-1 Granulocytes-Relative (test code = 2801) Lab Interpretation (test Abnormal code = 45035-2) [facility] with platelet count + automated [id number] 15:34:06 Test Item Value Reference Range Interpretation Comments WBC (test code = 6690-2) 4.6 See_Comment [A utomated message] The system [employer] generated this result transmitted ref erence range: 3.5 - 10 .5 K/L. The refe rence range was not u sed to interpret this result as normal/abnor mal. RBC (test code = 789-8) 2.86 See_Comment L [Au tomated message] The system [employer] generated this result transmitted ref erence range: 3.93 - 5 .22 M/L. The refe rence range was not u sed to interpret this result as normal/abnor mal. MCHC (test code = 786-4) 32.1 See_Comment L [A utomated message] The system [employer] generated this result transmitted ref erence range: [...] L [Aut omated message] 777-3) The system [employer] generated this result transmitted ref erence range: 150 - 45 0 K/CU MM. The referen ce range was not u sed to interpret this result as normal/abnor mal. MPV (test code = 11.0 fL 9.4-12.3 89160-8) nRBC (test code = 413) 0 See_Comment [Aut omated message] The system [employer] generated this result transmitted ref erence range: [...] See_Comment [Aut omated message] 670) The system [employer] generated this result transmitted ref erence range: 1.56 - 6 .13 K/L. The refe rence range was not u sed to interpret this result as normal/abnor mal. # Lymphs (test code = 0.73 See_Comment L [Auto mated message] 414) The system [employer] generated this result transmitted ref erence range: 1.18 - 3 .74 K/L. The refe rence range was not u sed to interpret this result as normal/abnor mal. # Monos (test code = 0.62 See_Comment H [Autom ated message] 415) The system [employer] generated this result transmitted ref erence range: 0.24 - 0 .36 K/L. The refe rence range was not u sed to interpret this result as normal/abnor mal. # Eos (test code = 416) 0.24 See_Comment [Au tomated message] The system [employer] generated this result transmitted ref erence range: 0.04 - 0 .36 K/L. The refe rence range was not u sed to interpret this result as normal/abnor mal. # Baso (test code = 417) 0.04 See_Comment [A utomated message] The system [employer] generated this result transmitted ref erence range: 0.01 - 0 .08 K/L. The refe rence range was not u sed to interpret this result as normal/abnor mal. Immature 0 % 0-1 Granulocytes-Relative (test code = 2801) Lab Interpretation (test Abnormal code = 74155-5) [facility] with platelet count + automated [id number] 15:34:06 Test Item Value Reference Range Interpretation Comments WBC (test code = 6690-2) 4.6 See_Comment [A utomated message] The system [employer] generated this result transmitted ref erence range: 3.5 - 10 .5 K/L. The refe rence range was not u sed to interpret this result as normal/abnor mal. RBC (test code = 789-8) 2.86 See_Comment L [Au tomated message] The system [employer] generated this result transmitted ref erence range: 3.93 - 5 .22 M/L. The refe rence range was not u sed to interpret this result as normal/abnor mal. MCHC (test code = 786-4) 32.1 See_Comment L [A utomated message] The system [employer] generated this result transmitted ref erence range: [...] L [Aut omated message] 777-3) The system [employer] generated this result transmitted ref erence range: 150 - 45 0 K/CU MM. The referen ce range was not u sed to interpret this result as normal/abnor mal. MPV (test code = 11.0 fL 9.4-12.3 86780-4) nRBC (test code = 413) 0 See_Comment [Aut omated message] The system [employer] generated this result transmitted ref erence range: [...] See_Comment [Aut omated message] 670) The system [employer] generated this result transmitted ref erence range: 1.56 - 6 .13 K/L. The refe rence range was not u sed to interpret this result as normal/abnor mal. # Lymphs (test code = 0.73 See_Comment L [Auto mated message] 414) The system [employer] generated this result transmitted ref erence range: 1.18 - 3 .74 K/L. The refe rence range was not u sed to interpret this result as normal/abnor mal. # Monos (test code = 0.62 See_Comment H [Autom ated message] 415) The system [employer] generated this result transmitted ref erence range: 0.24 - 0 .36 K/L. The refe rence range was not u sed to interpret this result as normal/abnor mal. # Eos (test code = 416) 0.24 See_Comment [Au tomated message] The system [employer] generated this result transmitted ref erence range: 0.04 - 0 .36 K/L. The refe rence range was not u sed to interpret this result as normal/abnor mal. # Baso (test code = 417) 0.04 See_Comment [A utomated message] The system [employer] generated this result transmitted ref erence range: 0.01 - 0 .08 K/L. The refe rence range was not u sed to interpret this result as normal/abnor mal. Immature 0 % 0-1 Granulocytes-Relative (test code = 2801) Lab Interpretation (test Abnormal code = 56364-8) [facility] with platelet count + automated [id number] 15:34:06 Test Item Value Reference Range Interpretation Comments WBC (test code = 6690-2) 4.6 See_Comment [A utomated message] The system [employer] generated this result transmitted ref erence range: 3.5 - 10 .5 K/L. The refe rence range was not u sed to interpret this result as normal/abnor mal. RBC (test code = 789-8) 2.86 See_Comment L [Au tomated message] The system [employer] generated this result transmitted ref erence range: 3.93 - 5 .22 M/L. The refe rence range was not u sed to interpret this result as normal/abnor mal. MCHC (test code = 786-4) 32.1 See_Comment L [A utomated message] The system [employer] generated this result transmitted ref erence range: [...] L [Aut omated message] 777-3) The system [employer] generated this result transmitted ref erence range: 150 - 45 0 K/CU MM. The referen ce range was not u sed to interpret this result as normal/abnor mal. MPV (test code = 11.0 fL 9.4-12.3 46378-2) nRBC (test code = 413) 0 See_Comment [Aut omated message] The system [employer] generated this result transmitted ref erence range: [...] See_Comment [Aut omated message] 670) The system [employer] generated this result transmitted ref erence range: 1.56 - 6 .13 K/L. The refe rence range was not u sed to interpret this result as normal/abnor mal. # Lymphs (test code = 0.73 See_Comment L [Auto mated message] 414) The system [employer] generated this result transmitted ref erence range: 1.18 - 3 .74 K/L. The refe rence range was not u sed to interpret this result as normal/abnor mal. # Monos (test code = 0.62 See_Comment H [Autom ated message] 415) The system [employer] generated this result transmitted ref erence range: 0.24 - 0 .36 K/L. The refe rence range was not u sed to interpret this result as normal/abnor mal. # Eos (test code = 416) 0.24 See_Comment [Au tomated message] The system [employer] generated this result transmitted ref erence range: 0.04 - 0 .36 K/L. The refe rence range was not u sed to interpret this result as normal/abnor mal. # Baso (test code = 417) 0.04 See_Comment [A utomated message] The system [employer] generated this result transmitted ref erence range: 0.01 - 0 .08 K/L. The refe rence range was not u sed to interpret this result as normal/abnor mal. Immature 0 % 0-1 Granulocytes-Relative (test code = 2801) Lab Interpretation (test Abnormal code = 68678-8) [facility] with platelet count + automated [id number] 15:34:06 Test Item Value Reference Range Interpretation Comments WBC (test code = 6690-2) 4.6 See_Comment [A utomated message] The system [employer] generated this result transmitted ref erence range: 3.5 - 10 .5 K/L. The refe rence range was not u sed to interpret this result as normal/abnor mal. RBC (test code = 789-8) 2.86 See_Comment L [Au tomated message] The system [employer] generated this result transmitted ref erence range: 3.93 - 5 .22 M/L. The refe rence range was not u sed to interpret this result as normal/abnor mal. MCHC (test code = 786-4) 32.1 See_Comment L [A utomated message] The system [employer] generated this result transmitted ref erence range: [...] L [Aut omated message] 777-3) The system [employer] generated this result transmitted ref erence range: 150 - 45 0 K/CU MM. The referen ce range was not u sed to interpret this result as normal/abnor mal. MPV (test code = 11.0 fL 9.4-12.3 01141-7) nRBC (test code = 413) 0 See_Comment [Aut omated message] The system [employer] generated this result transmitted ref erence range: [...] See_Comment [Aut omated message] 670) The system [employer] generated this result transmitted ref erence range: 1.56 - 6 .13 K/L. The refe rence range was not u sed to interpret this result as normal/abnor mal. # Lymphs (test code = 0.73 See_Comment L [Auto mated message] 414) The system [employer] generated this result transmitted ref erence range: 1.18 - 3 .74 K/L. The refe rence range was not u sed to interpret this result as normal/abnor mal. # Monos (test code = 0.62 See_Comment H [Autom ated message] 415) The system [employer] generated this result transmitted ref erence range: 0.24 - 0 .36 K/L. The refe rence range was not u sed to interpret this result as normal/abnor mal. # Eos (test code = 416) 0.24 See_Comment [Au tomated message] The system [employer] generated this result transmitted ref erence range: 0.04 - 0 .36 K/L. The refe rence range was not u sed to interpret this result as normal/abnor mal. # Baso (test code = 417) 0.04 See_Comment [A utomated message] The system [employer] generated this result transmitted ref erence range: 0.01 - 0 .08 K/L. The refe rence range was not u sed to interpret this result as normal/abnor mal. Immature 0 % 0-1 Granulocytes-Relative (test code = 2801) Lab Interpretation (test Abnormal code = 24357-9) [facility] with platelet count + automated [id number] 15:34:06 Test Item Value Reference Range Interpretation Comments WBC (test code = 6690-2) 4.6 See_Comment [A utomated message] The system [employer] generated this result transmitted ref erence range: 3.5 - 10 .5 K/L. The refe rence range was not u sed to interpret this result as normal/abnor mal. RBC (test code = 789-8) 2.86 See_Comment L [Au tomated message] The system [employer] generated this result transmitted ref erence range: 3.93 - 5 .22 M/L. The refe rence range was not u sed to interpret this result as normal/abnor mal. MCHC (test code = 786-4) 32.1 See_Comment L [A utomated message] The system [employer] generated this result transmitted ref erence range: [...] L [Aut omated message] 777-3) The system [employer] generated this result transmitted ref erence range: 150 - 45 0 K/CU MM. The referen ce range was not u sed to interpret this result as normal/abnor mal. MPV (test code = 11.0 fL 9.4-12.3 68492-2) nRBC (test code = 413) 0 See_Comment [Aut omated message] The system [employer] generated this result transmitted ref erence range: [...] See_Comment [Aut omated message] 670) The system [employer] generated this result transmitted ref erence range: 1.56 - 6 .13 K/L. The refe rence range was not u sed to interpret this result as normal/abnor mal. # Lymphs (test code = 0.73 See_Comment L [Auto mated message] 414) The system [employer] generated this result transmitted ref erence range: 1.18 - 3 .74 K/L. The refe rence range was not u sed to interpret this result as normal/abnor mal. # Monos (test code = 0.62 See_Comment H [Autom ated message] 415) The system [employer] generated this result transmitted ref erence range: 0.24 - 0 .36 K/L. The refe rence range was not u sed to interpret this result as normal/abnor mal. # Eos (test code = 416) 0.24 See_Comment [Au tomated message] The system [employer] generated this result transmitted ref erence range: 0.04 - 0 .36 K/L. The refe rence range was not u sed to interpret this result as normal/abnor mal. # Baso (test code = 417) 0.04 See_Comment [A utomated message] The system [employer] generated this result transmitted ref erence range: 0.01 - 0 .08 K/L. The refe rence range was not u sed to interpret this result as normal/abnor mal. Immature 0 % 0-1 Granulocytes-Relative (test code = 2801) Lab Interpretation (test Abnormal code = 27949-6) [facility] W/PLT COUNT & AUTO [id number] 15:34:06 Test Item Value Reference Range Interpretation [...] PERCENT (BEAKER) (test code = 2801) POCT-GLUCOSE [id number] 12:42:57 Test Item Value Reference Range Interpretation Comments POC-GLUCOSE METER 216 mg/dL 70-110 H : TESTED A T [facility] (BEAKER) (test code = [place], 1538) [address]: Brewery Worker/Techni kelle ID = [id number] for Kayla Emanuel Prepare Leuko-Red [id number] 10:49:00 Test Item Value Reference Range Interpretation Comments CROSSMATCH (test code = 2264) COMPATIBLE Unit ABO (test code = O Pos 4699746) UNIT NUMBER (test code = [id number] 934-0) Status (test code = 1063997) ISSUED Blood Bank Product (test code RED BLOOD CELLS = 2263) PRODUCT CODE (test code = Z6330X69 933-2) [facility] [id number] 10:49:00 Test Item Value Reference Range Interpretation Comments CROSSMATCH (test code = 2264) COMPATIBLE Unit ABO (test code = O Pos 1360075) UNIT NUMBER (test code = [id number] 934-0) Status (test code = 6555643) ISSUED Blood Bank Product (test code RED BLOOD CELLS = 2263) PRODUCT CODE (test code = B5516P61 933-2) [facility] [id number] 10:49:00 Test Item Value Reference Range Interpretation Comments CROSSMATCH (test code = 2264) COMPATIBLE Unit ABO (test code = O Pos 6127801) UNIT NUMBER (test code = [id number] 934-0) Status (test code = 4193290) ISSUED Blood Bank Product (test code RED BLOOD CELLS = 2263) PRODUCT CODE (test code = Q6937P08 933-2) [facility] CenterPO[facility]UCOSE [id number] 08:43:51 Test Item Value Reference Range Interpretation Comments POC-GLUCOSE METER 209 mg/dL 70-110 H : TESTED A T [facility] (BEAKER) (test code = [place], 1538) [address]: Brewery Worker/Techni kelle ID = [id number] for Kayla Emanuel RAD, CHEST, 1 VIEW, NON [id number] 07:26:00Reason for exam:->post-opShould this be performed at the bedside?->Yes [facility] 1955 Sex: [...] Cosme Verified Date/Time: 06/28/2021 07:26:22 BASIC METABOLIC [id number] 04:56:45 Test Item Value Reference Range Interpretation [...] S NOT APPLICABLE FOR DIALYSIS PATIEN TS. Brewery Worker ID - LIANA [id number] 04:48:49 Test Item Value Reference Range Interpretation Comments MAGNESIUM (BEAKER) 2.0 mg/dL 1.6-2.6 Specimen slightly (test code = 627) hemolyzed Brewery Worker ID - LIANA [id number] 04:48:49 Test Item Value Reference Range Interpretation Comments PHOSPHORUS (BEAKER) 2.5 mg/dL 2.3-4.7 Specimen slightly (test code = 604) hemolyzed Brewery Worker ID - LIANA LCBC (HEMOGRAM ONLY)2021-06-28 04:28:17 [...] WBC 0-0 (test code = 413) POCT-GLUCOSE [id number] 21:38:17 Test Item Value Reference Range Interpretation Comments POC-GLUCOSE METER 200 mg/dL 70-110 H : TESTED A T [facility] (BEAKER) (test code = [facility], [facility]) 31186: Brewery Worker/Techni kelle ID = [id number] for RO FRANCES, MACKENZIE POCT-GLUCOSE [id number] 18:02:45 Test Item Value Reference Range Interpretation Comments POC-GLUCOSE METER 217 mg/dL 70-110 H : TESTED A T [facility] [address] (BEAKER) (test code = [facility], [facility]) 13590: Brewery Worker/Techni kelle ID = [id number] for Ba rrera, Kayla POCT-GLUCOSE [id number] 15:14:18 Test Item Value Reference Range Interpretation Comments POC-GLUCOSE METER 229 mg/dL 70-110 H : TESTED A T [facility] [address] (BEAKER) (test code = [facility], 153) [address]53[address]: Brewery Worker/Techni kelle ID = [id number] for Ba rrera, Kayla POCT-GLUCOSE [id number] 12:20:23 Test Item Value Reference Range Interpretation Comments POC-GLUCOSE METER 160 mg/dL 70-110 H : TESTED A T [facility] [address] (BEAKER) (test code = [facility], [facility]) 90170: Brewery Worker/Techni kelle ID = [id number] for Ba rrera, Kayla SARS-CoV2/RT-PCR (Asymptomatic ONLY)2021-06-27 10:39:35 Test Item Value Reference Range Interpretation Comments SARS-COV2/RT-PCR Negative Not Detected, (test code = Negative, See 83107-6) external report for linked test SARS-COV-2 [facility] (test code = 54867-6) BRANDI (test code = Negative result for [...] of the Act. Fact Sheet for Healthcare Providers:https://www.[employer]/sites/default/f radha/product/documents/F act_Sheet_HC_Providers_L kgr_PTIJ-HrQ-0.pdf Fact Sheet for Healthcare Patients:https://www.Checkd.In del.[employer]/sites/default/fi les/product/documents/Fa ct_Sheet_Patients_Lyra_S ARS-CoV-2.pdf Performing Laboratory:[facility] [place] [address] [facility] (Asymptomatic ONLY)2021-06-27 10:39:35 Test Item Value Reference Range Interpretation Comments SARS-COV2/RT-PCR Negative Not Detected, (test code = Negative, See 33561-1) external report for linked test SARS-COV-2 [facility] (test code = 82260-0) BRANDI (test code = Negative result for [...] of the Act. Fact Sheet for Healthcare Providers:https://www.[employer] Command/sites/default/f radha/product/documents/F act_Sheet_HC_Providers_L pqu_VPAP-ByD-3.pdf Fact Sheet for Healthcare Patients:https://www.[employer]/sites/default/fi les/product/documents/Fa ct_Sheet_Patients_Alicia_S ARS-CoV-2.pdf Performing Laboratory:[facility] [place] [address] [facility] (Asymptomatic ONLY)2021-06-27 10:39:35 Test Item Value Reference Range Interpretation Comments SARS-COV2/RT-PCR Negative Not Detected, (test code = Negative, See 31623-6) external report for linked test SARS-COV-2 [facility] (test code = 01393-7) BRANDI (test code = Negative result for [...] of the Act. Fact Sheet for Healthcare Providers:https://www.Micreos.Secure Command/sites/default/f radha/product/documents/F act_Sheet_HC_Providers_L mcz_TMDD-DfU-7.pdf Fact Sheet for Healthcare Patients:https://www.Xenapto/sites/default/fi les/product/documents/Fa ct_Sheet_Patients_Alicia_S ARS-CoV-2.pdf Performing Laboratory:[facility] [place], [place] [address] [place], [place] [address]ARS-CoV2/RT-PCR (Asymptomatic ONLY)2021-06-27 10:39:35 Test Item Value Reference Range Interpretation Comments SARS-COV2/RT-PCR Negative Not Detected, (test code = Negative, See 43757-4) external report for linked test SARS-COV-2 [facility] (test code = 00469-7) BRANDI (test code = Negative result for [...] of the Act. Fact Sheet for Healthcare Providers:https://www.ApexPeak/sites/default/f radha/product/documents/F act_Sheet_HC_Providers_L ddh_KKQU-PjO-6.pdf Fact Sheet for Healthcare Patients:https://www.Xenapto/sites/default/fi les/product/documents/Fa ct_Sheet_Patients_Lyra_S ARS-CoV-2.pdf Performing Laboratory:[facility] [place] [address] [facility] (Asymptomatic ONLY)2021-06-27 10:39:35 Test Item Value Reference Range Interpretation Comments SARS-COV2/RT-PCR Negative Not Detected, (test code = Negative, See 36615-7) external report for linked test SARS-COV-2 [facility] (test code = 33081-9) BRANDI (test code = Negative result for [...] of the Act. Fact Sheet for Healthcare Providers:https://www.ApexPeak/sites/default/f radha/product/documents/F act_Sheet_HC_Providers_L wyt_VRCU-ScY-1.pdf Fact Sheet for Healthcare Patients:https://www.Xenapto/sites/default/fi les/product/documents/Fa ct_Sheet_Patients_Lyra_S ARS-CoV-2.pdf Performing Laboratory:[facility], [place] [address] [place], [place] [address]ARS-CoV2/RT-PCR (Asymptomatic ONLY)2021-06-27 10:39:35 Test Item Value Reference Range Interpretation Comments SARS-COV2/RT-PCR Negative Not Detected, (test code = Negative, See 94107-1) external report for linked test SARS-COV-2 [facility] (test code = 36690-8) BRANDI (test code = Negative result for [...] of the Act. Fact Sheet for Healthcare Providers:https://www.ApexPeak/sites/default/f radha/product/documents/F act_Sheet_HC_Providers_L ely_QVKE-NoE-7.pdf Fact Sheet for Healthcare Patients:https://www.Xenapto/sites/default/fi les/product/documents/Fa ct_Sheet_Patients_Lyra_S ARS-CoV-2.pdf Performing Laboratory:[facility], [place] [address] [place], [place] [address]ARS-CoV2/RT-PCR (Asymptomatic ONLY)2021-06-27 10:39:35 Test Item Value Reference Range Interpretation Comments SARS-COV2/RT-PCR Negative Not Detected, (test code = Negative, See 95825-7) external report for linked test SARS-COV-2 [facility] (test code = 75898-0) BRANDI (test code = Negative result for [...] of the Act. Fact Sheet for Healthcare Providers:https://www.ApexPeak/sites/default/f radha/product/documents/F act_Sheet_HC_Providers_L qcb_MNPJ-BjR-5.pdf Fact Sheet for Healthcare Patients:https://www.Xenapto/sites/default/fi les/product/documents/Fa ct_Sheet_Patients_Lyra_S ARS-CoV-2.pdf Performing Laboratory:[facility], [place] [address] [place], [place] [address]ARS-COV2/RT-PCR ([facility])2021-06-27 10:39:35 Test Item Value Reference Range Interpretation Comments SARS-COV2/RT-PCR (test Negative Not Detected, Negative, code = 2769344) See external report for linked test SARS-COV-[address] [facility] (test code = 7250123) Negative result for this test determines that [...] of the Act.Fact Sheet for Healthcare Prov iders:https://www.openPeople/sites/default/files/product/documents/Fact_Sheet_HC _Evkujcyqy_Uoer_REAN-XaU-2.pdfFact Sheet for Healthcare Patients:https://www.openPeople/sites/default/files/product/docume nts/Fbzw_Vakkk_Wvcxpjjx_Ybxf_WJMW-VtI-5.pdfPerforming Laboratory:[facility], [place] [address]QVLW-KBGIIIO METER 2021-06-27 08:35:14 Test Item Value Reference Range Interpretation Comments POC-GLUCOSE METER 99 mg/dL 70-110 : TESTED A T [facility] (AKASH) (test code = YUDY [place] [facility], 1538) [address]: Brewery Worker/Techni kelle ID = [id number] for Kayla Arenas RAD, CHEST, 1 VIEW, NON [id number] 08:17:00Reason for exam:->post-opShould this be performed at the bedside?->Yes [facility] : 1955 Sex: FFINAL REPORT Chest, one view HISTORY: Postoperative Comparison: 06/26/2021 Findings: Lungs: Mild bilateral interstitial opacities, likely pulmonary venous congestion. No significant change. Heart: Unchanged moderate cardiomegaly. Pleura: No pleural effusion or pneumothorax. Bones: Unremarkable. Lines/tubes: Unchanged in position. Signed: Erlin Carr MDReport Verified Date/Time: 06/27/2021 08:17:45 Reading Location: [address] Consult Reading Room BASIC METABOLIC [id number] 05:32:33 Test Item Value Reference Range Interpretation [...] S NOT APPLICABLE FOR DIALYSIS PATIEN TS. Brewery Worker ID - HIEN [id number] 05:23:42 Test Item Value Reference Range Interpretation Comments PHOSPHORUS (BEAKER) (test code = 2.2 mg/dL 2.3-4.7 L 604) Brewery Worker ID - HIEN RAMSEYSCYDVXKEBX8542-42-73 05:23:41 Test Item Value Reference Range Interpretation Comments MAGNESIUM (BEAKER) (test code = 1.8 mg/dL 1.6-2.6 627) Brewery Worker ID - HIEN CastañedaRsCBB5982-83-60 05:19:04 Test Item Value Reference Range Interpretation Comments PTT (test code = 63221-8) 35.8 See_Comment [ Automated message] The system Pixel Qi generated this result transmitted ref erence range: 22.5 - 3 6.0 seconds. The re ference range was not u sed to interpret this result as normal/abnor mal. Lab Interpretation (test Normal code = 59585-9) [place] [facility]04 Test Item Value Reference Range Interpretation Comments PTT (test code = 42849-8) 35.8 See_Comment [ Automated message] The system Pixel Qi generated this result transmitted ref erence range: 22.5 - 3 6.0 seconds. The re ference range was not u sed to interpret this result as normal/abnor mal. Lab Interpretation (test Normal code = 00800-5) [facility] 05:19:04 Test Item Value Reference Range Interpretation Comments PTT (test code = 88519-8) 35.8 See_Comment [ Automated message] The system Pixel Qi generated this result transmitted ref erence range: 22.5 - 3 6.0 seconds. The re ference range was not u sed to interpret this result as normal/abnor mal. Lab Interpretation (test Normal code = 26473-9) [place] 05:19:04 Test Item Value Reference Range Interpretation Comments PTT (test code = 21344-5) 35.8 See_Comment [ Automated message] The system Pixel Qi generated this result transmitted ref erence range: 22.5 - 3 6.0 seconds. The re ference range was not u sed to interpret this result as normal/abnor mal. Lab Interpretation (test Normal code = 93870-1) [place] 73146022-03-26 05:19:04 Test Item Value Reference Range Interpretation Comments PTT (test code = 57549-4) 35.8 See_Comment [ Automated message] The system Pixel Qi generated this result transmitted ref erence range: 22.5 - 3 6.0 seconds. The re ference range was not u sed to interpret this result as normal/abnor mal. Lab Interpretation (test Normal code = 23302-5) [place] 73146022-03-26 05:19:04 Test Item Value Reference Range Interpretation Comments PTT (test code = 60399-4) 35.8 See_Comment [ Automated message] The system Pixel Qi generated this result transmitted ref erence range: 22.5 - 3 6.0 seconds. The re ference range was not u sed to interpret this result as normal/abnor mal. Lab Interpretation (test Normal code = 37761-5) [place] 73146022-03-26 05:19:04 Test Item Value Reference Range Interpretation Comments PTT (test code = 92691-5) 35.8 See_Comment [ Automated message] The system Pixel Qi generated this result transmitted ref erence range: 22.5 - 3 6.0 seconds. The re ference range was not u sed to interpret this result as normal/abnor mal. Lab Interpretation (test Normal code = 36379-0) [place] 73146022-03-26 05:19:04 Test Item Value Reference Range Interpretation Comments PTT (test code = 55022-3) 35.8 See_Comment [ Automated message] The system Pixel Qi generated this result transmitted ref erence range: 22.5 - 3 6.0 seconds. The re ference range was not u sed to interpret this result as normal/abnor mal. Lab Interpretation (test Normal code = 23217-9) [place] 73146022-03-26 05:19:04 Test Item Value Reference Range Interpretation Comments PTT (test code = 53415-0) 35.8 See_Comment [ Automated message] The system Pixel Qi generated this result transmitted ref erence range: 22.5 - 3 6.0 seconds. The re ference range was not u sed to interpret this result as normal/abnor mal. Lab Interpretation (test Normal code = 99756-2) [place] 73146022-03-26 05:19:04 Test Item Value Reference Range Interpretation Comments PTT (test code = 91289-5) 35.8 See_Comment [ Automated message] The system Pixel Qi generated this result transmitted ref erence range: 22.5 - 3 6.0 seconds. The re ference range was not u sed to interpret this result as normal/abnor mal. Lab Interpretation (test Normal code = 14473-3) [place] 73146022-03-26 05:19:04 Test Item Value Reference Range Interpretation Comments PTT (test code = 08422-1) 35.8 See_Comment [ Automated message] The system Pixel Qi generated this result transmitted ref erence range: 22.5 - 3 6.0 seconds. The re ference range was not u sed to interpret this result as normal/abnor mal. Lab Interpretation (test Normal code = 32434-1) [place] 73146022-03-26 05:19:04 Test Item Value Reference Range Interpretation Comments PTT (test code = 04613-4) 35.8 See_Comment [ Automated message] The system Pixel Qi generated this result transmitted ref erence range: 22.5 - 3 6.0 seconds. The re ference range was not u sed to interpret this result as normal/abnor mal. Lab Interpretation (test Normal code = 89994-5) [place] 73146022-03-26 05:19:04 Test Item Value Reference Range Interpretation Comments PTT (test code = 84107-6) 35.8 See_Comment [ Automated message] The system Pixel Qi generated this result transmitted ref erence range: 22.5 - 3 6.0 seconds. The re ference range was not u sed to interpret this result as normal/abnor mal. Lab Interpretation (test Normal code = 58156-6) [place] 73146022-03-26 05:19:04 Test Item Value Reference Range Interpretation Comments PTT (test code = 23947-0) 35.8 See_Comment [ Automated message] The system Pixel Qi generated this result transmitted ref erence range: 22.5 - 3 6.0 seconds. The re ference range was not u sed to interpret this result as normal/abnor mal. Lab Interpretation (test Normal code = 92063-5) [place] 73146022-03-26 05:19:04 Test Item Value Reference Range Interpretation Comments PTT (test code = 61881-7) 35.8 See_Comment [ Automated message] The system Pixel Qi generated this result transmitted ref erence range: 22.5 - 3 6.0 seconds. The re ference range was not u sed to interpret this result as normal/abnor mal. Lab Interpretation (test Normal code = 25561-1) [place] 73146022-03-26 05:19:04 Test Item Value Reference Range Interpretation Comments PTT (test code = 26479-9) 35.8 See_Comment [ Automated message] The system Pixel Qi generated this result transmitted ref erence range: 22.5 - 3 6.0 seconds. The re ference range was not u sed to interpret this result as normal/abnor mal. Lab Interpretation (test Normal code = 61462-2) [facility] 05:[facility]:04 Test Item Value Reference Range Interpretation Comments PTT (test code = 01432-6) 35.8 See_Comment [ Automated message] The system Pixel Qi generated this result transmitted ref erence range: 22.5 - 3 6.0 seconds. The re ference range was not u sed to interpret this result as normal/abnor mal. Lab Interpretation (test Normal code = 39070-1) [place] 56924022-03-26 05:19:04 Test Item Value Reference Range Interpretation Comments PARTIAL THROMBOPLASTIN TIME 35.8 seconds 22.5-36.0 (BEAKER) (test code = 760) Prothrombin time/[id number] 05:18:23 Test Item Value Reference Interpretation Comments Range Protime (test code = 13.9 See_Comment [Autom ated 5902-2) message] The system which generated this result transmitted reference range : 11.9 - 14.2 seconds. The reference range was not used to interpret this result as normal/abnormal . INR (test code = 1.09 See_Comment [Automated 7071-6) message] The system which generated this result [...] valves. Lab Interpretation Normal (test code = 94138-2) [facility]Pro[facility]/[id number] 05:18:23 Test Item Value Reference Interpretation Comments Range Protime (test code = 13.9 See_Comment [Autom ated 5902-2) message] The system which generated this result transmitted reference range : 11.9 - 14.2 seconds. The reference range was not used to interpret this result as normal/abnormal . INR (test code = 1.09 See_Comment [Automated STRATUSCORE1-6) message] The system which generated this result [...] valves. Lab Interpretation Normal (test code = 41581-6) [facility] CenterProthrombin time/[id number] 05:18:23 Test Item Value Reference Interpretation Comments [...] valves. Lab Interpretation Normal (test code = 30015-8) [facility] CenterProthrombin time/[id number] 05:18:23 Test Item Value Reference Interpretation Comments [...] valves. Lab Interpretation Normal (test code = 94867-9) [facility] CenterProthrombin time/[id number] 05:18:23 Test Item Value Reference Interpretation Comments [...] valves. Lab Interpretation Normal (test code = 60794-3) [facility] CenterProthrombin time/[id number] 05:18:23 Test Item Value Reference Interpretation Comments [...] valves. Lab Interpretation Normal (test code = 65847-7) [facility] CenterProthrombin time/[id number] 05:18:23 Test Item Value Reference Interpretation Comments [...] valves. Lab Interpretation Normal (test code = 94330-7) [facility] CenterProthrombin time/[id number] 05:18:23 Test Item Value Reference Interpretation Comments Range Protime (test code = 13.9 See_Comment [Autom ated 5902-2) message] The system which generated this result transmitted reference range : 11.9 - 14.2 seconds. The reference range was not used to interpret this result as normal/abnormal . INR (test code = 1.09 See_Comment [Automated STRATUSCORE1-6) message] The system which generated this result [...] valves. Lab Interpretation Normal (test code = 14707-0) [facility] CenterProthrombin time/[id number] 05:18:23 Test Item Value Reference Interpretation Comments Range Protime (test code = 13.9 See_Comment [Autom ated 5902-2) message] The system which generated this result transmitted reference range : 11.9 - 14.2 seconds. The reference range was not used to interpret this result as normal/abnormal . INR (test code = 1.09 See_Comment [Automated STRATUSCORE1-6) message] The system which generated this result [...] valves. Lab Interpretation Normal (test code = 18674-9) [facility] CenterProthrombin time/[id number] 05:18:23 Test Item Value Reference Interpretation Comments Range Protime (test code = 13.9 See_Comment [Autom ated 5902-2) message] The system which generated this result transmitted reference range : 11.9 - 14.2 seconds. The reference range was not used to interpret this result as normal/abnormal . INR (test code = 1.09 See_Comment [Automated STRATUSCORE1-6) message] The system which generated this result [...] valves. Lab Interpretation Normal (test code = 06120-5) [facility] CenterProthrombin time/[id number] 05:18:23 Test Item Value Reference Interpretation Comments [...] valves. Lab Interpretation Normal (test code = 90428-4) [facility] CenterProthrombin time/[id number] 05:18:23 Test Item Value Reference Interpretation Comments [...] valves. Lab Interpretation Normal (test code = 86022-7) [facility] CenterProthrombin time/[id number] 05:18:23 Test Item Value Reference Interpretation Comments [...] valves. Lab Interpretation Normal (test code = 45805-2) [facility] CenterProthrombin time/[id number] 05:18:23 Test Item Value Reference Interpretation Comments [...] valves. Lab Interpretation Normal (test code = 90387-0) [facility] CenterProthrombin time/[id number] 05:18:23 Test Item Value Reference Interpretation Comments [...] valves. Lab Interpretation Normal (test code = 65785-0) [facility] CenterProthrombin time/[id number] 05:18:23 Test Item Value Reference Interpretation Comments [...] valves. Lab Interpretation Normal (test code = 62075-9) [facility] CenterProthrombin time/[id number] 05:18:23 Test Item Value Reference Interpretation Comments [...] valves. Lab Interpretation Normal (test code = 17693-8) [facility] CenterPROTHROMBIN TIME/[id number] 05:18:23 Test Item Value Reference Range Interpretation Comments PROTIME (BEAKER) 13.9 seconds 11.9-14.2 (test code = 759) INR (BEAKER) (test 1.09 See_Comment [Automat ed message] code = 370) The system Pixel Qi generated this result transmitted ref erence range: [...] WBC 0-0 (test code = 413) POCT-GLUCOSE [id number] 21:11:10 Test Item Value Reference Range Interpretation Comments POC-GLUCOSE METER 158 mg/dL 70-110 H : TESTED A T [facility] 6720 (BEAKER) (test code = YUDY [place] [facility], 1538) [address]: Brewery Worker/Techni kelle ID = [id number] for Re yes, Sairy POCT-GLUCOSE [id number] 19:06:56 Test Item Value Reference Range Interpretation Comments POC-GLUCOSE METER 113 mg/dL 70-110 H : TESTED A T [facility] 6720 (BEAKER) (test code GISELLA [facility], = 1538) [address]: Brewery Worker/Techni kelle ID = [id number] for Sutt on, Fadi Hemoglobin and eumihbhvnq8954-68-67 11:43:32 Test Item Value Reference Range Interpretation [...] = 4544-3) BRANDI (test code = BRANDI) Brewery Worker ID - [id number] Lab Interpretation Abnormal (test code = 09246-3) [facility] CenterHemoglobin and fjinegmwcx9107-09-38 11:43:32 Test Item Value Reference Range Interpretation [...] = 4544-3) BRANDI (test code = BRANDI) Brewery Worker ID - [id number] Lab Interpretation Abnormal (test code = 77407-6) [facility] CenterHemoglobin and tdnpjjqqqs4927-12-09 11:43:32 Test Item Value Reference Range Interpretation [...] = 4544-3) BRANDI (test code = BRANDI) Brewery Worker ID - [id number] Lab Interpretation Abnormal (test code = 09676-3) [facility] CenterHemoglobin and uzfibndlpf0347-47-20 11:43:32 Test Item Value Reference Range Interpretation [...] = 4544-3) BRANDI (test code = BRANDI) Brewery Worker ID - [id number] Lab Interpretation Abnormal (test code = 02709-2) [facility] CenterHem[facility] and degpsegayb5025-75-94 11:43:32 Test Item Value Reference Range Interpretation [...] = 4544-3) BRANDI (test code = BRANDI) Brewery Worker ID - [id number] Lab Interpretation Abnormal (test code = 88690-1) [facility] CenterHemoglobin and huvklfjtjo2362-98-04 11:43:32 Test Item Value Reference Range Interpretation [...] = 4544-3) BRANDI (test code = BRANDI) Brewery Worker ID - [id number] Lab Interpretation Abnormal (test code = 68715-3) [facility] CenterHemoglobin and nkydypjyvh4672-65-35 11:43:32 Test Item Value Reference Range Interpretation [...] = 4544-3) BRANDI (test code = BRANDI) Brewery Worker ID - [id number] Lab Interpretation Abnormal (test code = 04636-4) [facility] CenterHemoglobin and dkijbmhqmt9319-72-80 11:43:32 Test Item Value Reference Range Interpretation [...] = 4544-3) BRANDI (test code = BRANDI) Brewery Worker ID - [id number] Lab Interpretation Abnormal (test code = 09316-0) [facility] CenterHemoglobin and epqslvzfym9847-83-22 11:43:32 Test Item Value Reference Range Interpretation [...] = 4544-3) BRANDI (test code = BRANDI) Brewery Worker ID - [id number] Lab Interpretation Abnormal (test code = 33167-8) [facility] CenterH[facility] and aqanxeyvxc3452-54-97 11:43:32 Test Item Value Reference Range Interpretation [...] = 4544-3) BRANDI (test code = BRANDI) Brewery Worker ID - [id number] Lab Interpretation Abnormal (test code = 74684-2) [facility] CenterHem[facility] and nhurjjebmz0631-31-82 11:43:32 Test Item Value Reference Range Interpretation [...] = 4544-3) BRANDI (test code = BRANDI) Brewery Worker ID - [id number] Lab Interpretation Abnormal (test code = 11171-1) [facility] CenterHem[facility] and wrrkimxcwi3663-91-85 11:43:32 Test Item Value Reference Range Interpretation [...] = 4544-3) BRANDI (test code = BRANDI) Brewery Worker ID - [id number] Lab Interpretation Abnormal (test code = 27109-4) [facility] and zqhjijymfr5805-25-03 11:43:32 Test Item Value Reference Range Interpretation [...] = 4544-3) BRANDI (test code = BRANDI) Brewery Worker ID - [id number] Lab Interpretation Abnormal (test code = 07979-1) [facility] CenterHemoglobin and ixhfczmqdi5614-02-25 11:43:32 Test Item Value Reference Range Interpretation [...] = 4544-3) BRANDI (test code = BRANDI) Brewery Worker ID - [id number] Lab Interpretation Abnormal (test code = 52498-3) [facility] CenterHemoglobin and jvzudcjgkk6730-47-41 11:43:32 Test Item Value Reference Range Interpretation [...] = 4544-3) BRANDI (test code = BRANDI) Brewery Worker ID - [id number] Lab Interpretation Abnormal (test code = 70507-2) [facility] CenterHemoglobin and mujssdspck7572-47-47 11:43:32 Test Item Value Reference Range Interpretation [...] = 4544-3) BRANDI (test code = BRANDI) Brewery Worker ID - [id number] Lab Interpretation Abnormal (test code = 52419-8) [facility] CenterHemoglobin and ahbwjekpju9134-23-69 11:43:32 Test Item Value Reference Range Interpretation [...] = 4544-3) BRANDI (test code = BRANDI) Brewery Worker ID - [id number] Lab Interpretation Abnormal (test code = 90776-5) [facility] CenterHemoglobin and zntdujinlz0636-47-24 11:43:32 Test Item Value Reference Range Interpretation [...] = 4544-3) BRANDI (test code = BRANDI) Brewery Worker ID - [id number] Lab Interpretation Abnormal (test code = 67269-4) [facility] CenterHEMOGLOBIN AND CWIAEFJINQ5678-38-27 11:43:32 Test Item Value Reference Range Interpretation Comments HEMOGLOBIN (BEAKER) (test code = 8.5 GM/DL 11.2-15.7 L 410) HEMATOCRIT (BEAKER) (test code = 26.8 % 34.1-44.9 L 411) Brewery Worker ID - [id number]-Glucose lmpil2438-99-96 11:26:36 Test Item Value Reference Range Interpretation Comments POC-Glucose Meter (test 126 mg/dL 70-110 H : TE STED AT [facility] code = 1538) 6720 [facility], 770 30: Brewery Worker/Techni kelle ID = [id number] for Ector (contract)Meeta Lab Interpretation (test Abnormal code = 63499-2) [facility] CenterPOCT-GLUCOSE [id number] 11:26:36 Test Item Value Reference Range Interpretation Comments POC-GLUCOSE METER 126 mg/dL 70-110 H : [facility] (test code = [facility], 1538) [address]: Brewery Worker/Techni kelle ID = [id number] for Brando wayne (contract)Marilee POCT-GLUCOSE [id number] 09:38:49 Test Item Value Reference Range Interpretation Comments POC-GLUCOSE METER 139 mg/dL 70-110 H : [facility] ([facility] (test code = [facility], 1538) [address]: Brewery Worker/Techni kelle ID = [id number] for SWEETIE GASPAR, TUNNELED CATHETER VQVXXLZRI2936-24-29 08:44:00Reason for Central Line/PICC?->> 21 days of IV infusionReason for exam:->needs antibiotics > 10 days, ESRD, Nephrology does not approve PICC or midline. [facility] : 1955 Sex: [...] MDReport Verified Date/Time: 06/26/2021 08:44:45 Reading Location: [place] [address] Angio Body Reading Room RAD, CHEST, 1 VIEW, NON [id number] 08:08:00Reason for exam:->post-opShould this be performed at the bedside?->Yes [facility] : 1955 Sex: [...] Cain Verified Date/Time: 06/26/2021 08:08:37 Reading Location: [facility] Radiology Reading Room Prepare Leuko-Red [id number] 06:01:00 Test Item Value Reference Range Interpretation Comments CROSSMATCH (test code = 2264) COMPATIBLE Unit ABO (test code = O Pos 8319940) UNIT NUMBER (test code = [id number] 934-0) Status (test code = 1881209) ISSUED Blood Bank Product (test code RED BLOOD CELLS = 2263) PRODUCT CODE (test code = A3424S88 933-2) [facility] Center[facility]uko-Red [id number] 06:01:00 Test Item Value Reference Range Interpretation Comments CROSSMATCH (test code = 2264) COMPATIBLE Unit ABO (test code = O Pos 4591417) UNIT NUMBER (test code = [id number] 934-0) Status (test code = 6011095) ISSUED Blood Bank Product (test code RED BLOOD CELLS = 2263) PRODUCT CODE (test code = H3915W20 933-2) [facility] Metabolic [id number] 05:17:06 Test Item Value Reference Range Interpretation Comments Sodium (test code = 139 meq/L 291-595 2858-2) Potassium (test code = 3.7 meq/L 3.5-5.1 2823-3) Chloride (test code = 104 meq/L 98-107 2075-0) CO2 (test code = 23 meq/L -29 2027-9) BUN (test code = 36 mg/dL 7-21 H 3094-0) Creatinine (test code 5.14 mg/dL 0.57-1.25 H = 2160-0) Glucose (test code = 170 mg/dL 70-105 H 2345-7) Calcium (test code = 8.2 mg/dL 8.4-10.2 L 01379-8) EGFR (test code = 8 mL/min/1.[place] [address]-2) NOT ACCURATE CREATININE CLEARANCE IN PREDICTING GLOMERULAR FILTRATION RATE . ESTIMATED GFR I S NOT APPLICABLE FOR DIALYSIS PATIENTS. BRANDI (test code = BRANDI) Brewery Worker ID - RAKAN W Lab Interpretation Abnormal (test code = 91188-7) [facility] Metabolic [id number] 05:17:06 Test Item Value Reference Range Interpretation Comments Sodium (test code = 139 meq/L 941-133 9980-2) Potassium (test code = 3.7 meq/L 3.5-5.1 2823-3) Chloride (test code = 104 meq/L 98-107 2075-0) CO2 (test code = 23 meq/L -29 8-9) BUN (test code = 36 mg/dL 7-21 H 3094-0) Creatinine (test code 5.14 mg/dL 0.57-1.25 H = 2160-0) Glucose (test code = 170 mg/dL 70-105 H 2345-7) Calcium (test code = 8.2 mg/dL 8.4-10.2 L 44604-2) EGFR (test code = 8 mL/min/1.[place] [address]-5) NOT ACCURATE CREATININE CLEARANCE IN PREDICTING GLOMERULAR FILTRATION RATE . ESTIMATED GFR I S NOT APPLICABLE FOR DIALYSIS PATIENTS. BRANDI (test code = BRANDI) Brewery Worker ID - RAKAN W Lab Interpretation Abnormal (test code = 69669-0) [facility] CenterBASIC METABOLIC [id number] 05:17:06 Test Item Value Reference Range Interpretation [...] S NOT APPLICABLE FOR DIALYSIS PATIEN TS. Brewery Worker ID - RAKAN [id number] 05:00:22 Test Item Value Reference Range Interpretation Comments Phosphorus (test code = 3.7 mg/dL 2.3-4.7 2777-1) BRANDI (test code = BRANDI) Brewery Worker ID - RAKAN W Lab Interpretation (test Normal code = 02005-5) [facility] CenterPhosphorus2022-03-25 05:00:22 Test Item Value Reference Range Interpretation Comments Phosphorus (test code = 3.7 mg/dL 2.3-4.7 2777-1) BRANDI (test code = BRANDI) Brewery Worker ID - RAKAN W Lab Interpretation (test Normal code = 34970-4) [facility] CenterPHOSPHORUS2022-03-25 05:00:22 Test Item Value Reference Range Interpretation Comments PHOSPHORUS (BEAKER) (test code = 3.7 mg/dL 2.3-4.7 604) Brewery Worker ID - RAKAN [id number] 05:00:21 Test Item Value Reference Range Interpretation Comments Magnesium (test code = 2.2 mg/dL 1.6-2.6 40567-2) BRANDI (test code = BRANDI) Brewery Worker ID - RAKAN W Lab Interpretation (test Normal code = 50742-4) [facility] CenterMagnesium2022-03-25 05:00:21 Test Item Value Reference Range Interpretation Comments Magnesium (test code = 2.2 mg/dL 1.6-2.6 10051-9) BRANDI (test code = BRANDI) Brewery Worker ID - RAKAN W Lab Interpretation (test Normal code = 94218-0) [facility] 05:00:21 Test Item Value Reference Range Interpretation Comments MAGNESIUM (BEAKER) (test code = 2.2 mg/dL 1.6-2.6 627) Brewery Worker ID - RAKAN [id number] 04:21:04 Test Item Value Reference Range Interpretation Comments PTT (test code = 24699-8) 35.7 See_Comment [ Automated message] The system Pixel Qi generated this result transmitted ref erence range: 22.5 - 3 6.0 seconds. The re ference range was not u sed to interpret this result as normal/abnor mal. Lab Interpretation (test Normal code = 74105-1) [facility] CenteraPTT2022-03-25 04:21:04 Test Item Value Reference Range Interpretation Comments PTT (test code = 66560-9) 35.7 See_Comment [ Automated message] The system Pixel Qi generated this result transmitted ref erence range: 22.5 - 3 6.0 seconds. The re ference range was not u sed to interpret this result as normal/abnor mal. Lab Interpretation (test Normal code = 51082-7) [facility] Test Item Value Reference Range Interpretation Comments PARTIAL THROMBOPLASTIN TIME 35.7 seconds 22.5-36.0 (BEAKER) (test code = 760) Prothrombin time/[id number] 04:20:24 Test Item Value Reference Interpretation Comments [...] valves. Lab Interpretation Normal (test code = 53847-4) [facility] CenterProthrombin time/[id number] 04:20:24 Test Item Value Reference Interpretation Comments [...] valves. Lab Interpretation Normal (test code = 71900-2) [facility] CenterPROTHROMBIN TIME/[id number] 04:20:24 Test Item Value Reference Range Interpretation Comments PROTIME (BEAKER) 14.0 seconds 11.9-14.2 (test code = 759) INR (BEAKER) (test 1.10 See_Comment [Automat ed message] code = 370) The system Pixel Qi generated this result transmitted ref erence range: [...] 4.0 See_Comment [A utomated message] The system Pixel Qi generated this result transmitted ref erence range: 3.5 - 10 .5 K/L. The refe rence range was not u sed to interpret this result as normal/abnor mal. RBC (test code = 789-8) 2.54 See_Comment L [Au tomated message] The system Pixel Qi generated this result transmitted ref erence range: 3.93 - 5 .22 M/L. The refe rence range was not u sed to interpret this result as normal/abnor mal. MCHC (test code = 786-4) 31.2 See_Comment L [A utomated message] The system Pixel Qi generated this result transmitted ref erence range: [...] L [Aut omated message] 777-3) The system Pixel Qi generated this result transmitted ref erence range: 150 - 45 0 K/CU MM. The referen ce range was not u sed to interpret this result as normal/abnor mal. MPV (test code = 10.7 fL 9.4-12.3 12175-8) nRBC (test code = 413) 0 See_Comment [Aut omated message] The system Pixel Qi generated this result transmitted ref erence range: 0 - 0 /1 00 WBC. The refere nce range was not u sed to interpret this result as normal/abnor mal. Lab Interpretation (test Abnormal code = 47065-6) [facility] (Hemogram only)2021-06-26 04:04:58 Test Item Value Reference Range Interpretation Comments WBC (test code = 6690-2) 4.0 See_Comment [A utomated message] The system Pixel Qi generated this result transmitted ref erence range: 3.5 - 10 .5 K/L. The refe rence range was not u sed to interpret this result as normal/abnor mal. RBC (test code = 789-8) 2.54 See_Comment L [Au tomated message] The system Pixel Qi generated this result transmitted ref erence range: 3.93 - 5 .22 M/L. The refe rence range was not u sed to interpret this result as normal/abnor mal. MCHC (test code = 786-4) 31.2 See_Comment L [A utomated message] The system Pixel Qi generated this result transmitted ref erence range: [...] L [Aut omated message] 777-3) The system Pixel Qi generated this result transmitted ref erence range: 150 - 45 0 K/CU MM. The referen ce range was not u sed to interpret this result as normal/abnor mal. MPV (test code = 10.7 fL 9.4-12.3 96505-2) nRBC (test code = 413) 0 See_Comment [Aut omated message] The system Pixel Qi generated this result transmitted ref erence range: 0 - 0 /1 00 WBC. The refere nce range was not u sed to interpret this result as normal/abnor mal. Lab Interpretation (test Abnormal code = 26026-3) [facility] (HEMOGRAM ONLY)2021-06-26 04:04:58 Test Item Value [...] WBC 0-0 (test code = 413) POC-Glucose nwtbj0434-04-03 21:57:30 Test Item Value Reference Range Interpretation Comments POC-Glucose Meter (test 204 mg/dL 70-110 H : TE STED AT [facility] code = 1538) [address] [place], [address]: Brewery Worker/Techni kelle ID = [id number] for Rodríguez Cancino Lab Interpretation (test Abnormal code = 37793-5) [facility] CenterPOCT-GLUCOSE [id number] 21:57:30 Test Item Value Reference Range Interpretation Comments POC-GLUCOSE METER 204 mg/dL 70-110 H : TESTED A T [facility] 6720 (BEAKER) (test code = [place], 1538) [address]: Brewery Worker/Techni kelle ID = [id number] for Ad ams, Kimetra Type and screen, automated ([facility]2021-06-25 19:44:00 Test Item Value Reference Range Interpretation Comments ABO/RH AUTOMATED (BEAKER) (test O POSITIVE code = 2260) Ab Scrn (test code = 890-4) NEGATIVE [facility] CenterType and screen, automated ([facility])2021-06-25 19:44:00 Test Item Value Reference Range Interpretation Comments ABO/RH AUTOMATED (BEAKER) (test O POSITIVE code = 2260) Ab Scrn (test code = 890-4) NEGATIVE [facility] CenterType and screen, automated ([facility])2021-06-25 19:44:00 Test Item Value Reference Range Interpretation Comments ABO/RH AUTOMATED (BEAKER) (test O POSITIVE code = 2260) Ab Scrn (test code = 890-4) NEGATIVE [facility] CenterType and screen, automated ([facility])2021-06-25 19:44:00 Test Item Value Reference Range Interpretation Comments ABO/RH AUTOMATED (BEAKER) (test O POSITIVE code = 2260) Ab Scrn (test code = 890-4) NEGATIVE [facility] CenterType and screen, automated ([facility])2021-06-25 19:44:00 Test Item Value Reference Range Interpretation Comments ABO/RH AUTOMATED (BEAKER) (test O POSITIVE code = 2260) Ab Scrn (test code = 890-4) NEGATIVE [facility]Type and screen, automated ([facility])2021-06-25 19:44:00 Test Item Value Reference Range Interpretation Comments ABO/RH AUTOMATED (BEAKER) (test O POSITIVE code = 2260) Ab Scrn (test code = 890-4) NEGATIVE [facility] CenterType and screen, automated ([facility])2021-06-25 19:44:00 Test Item Value Reference Range Interpretation Comments ABO/RH AUTOMATED (BEAKER) (test O POSITIVE code = 2260) Ab Scrn (test code = 890-4) NEGATIVE [facility] CenterType and screen, automated ([facility])2021-06-25 19:44:00 Test Item Value Reference Range Interpretation Comments ABO/RH AUTOMATED (BEAKER) (test O POSITIVE code = 2260) Ab Scrn (test code = 890-4) NEGATIVE [facility] CenterType and screen, automated ([facility])2021-06-25 19:44:00 Test Item Value Reference Range Interpretation Comments ABO/RH AUTOMATED (BEAKER) (test O POSITIVE code = 2260) Ab Scrn (test code = 890-4) NEGATIVE [facility] CenterType and screen, automated ([facility])2021-06-25 19:44:00 Test Item Value Reference Range Interpretation Comments ABO/RH AUTOMATED (BEAKER) (test O POSITIVE code = 2260) Ab Scrn (test code = 890-4) NEGATIVE [facility]Type [facility], automated ([facility])2021-06-25 19:44:00 Test Item Value Reference Range Interpretation Comments ABO/RH AUTOMATED (BEAKER) (test O POSITIVE code = 2260) Ab Scrn (test code = 890-4) NEGATIVE [facility]Type and screen, automated ([facility])2021-06-25 19:44:00 Test Item Value Reference Range Interpretation Comments ABO/RH AUTOMATED (BEAKER) (test O POSITIVE code = 2260) Ab Scrn (test code = 890-4) NEGATIVE [facility]Type and screen, automated ([facility])2021-06-25 19:44:00 Test Item Value Reference Range Interpretation Comments ABO/RH AUTOMATED (BEAKER) (test O POSITIVE code = 2260) Ab Scrn (test code = 890-4) NEGATIVE [facility] CenterType and screen, automated ([facility])2021-06-25 19:44:00 Test Item Value Reference Range Interpretation Comments ABO/RH AUTOMATED (BEAKER) (test O POSITIVE code = 2260) Ab Scrn (test code = 890-4) NEGATIVE [facility] CenterType and screen, automated ([facility])2021-06-25 19:44:00 Test Item Value Reference Range Interpretation Comments ABO/RH AUTOMATED (BEAKER) (test O POSITIVE code = 2260) Ab Scrn (test code = 890-4) NEGATIVE [facility] CenterType and screen, automated [facility]2021-06-25 19:44:00 Test Item Value Reference Range Interpretation Comments ABO/RH AUTOMATED (BEAKER) (test O POSITIVE code = 2260) Ab Scrn (test code = 890-4) NEGATIVE [facility] CenterType and screen, automated ([facility])2021-06-25 19:44:00 Test Item Value Reference Range Interpretation Comments ABO/RH AUTOMATED (BEAKER) (test O POSITIVE code = 2260) Ab Scrn (test code = 890-4) NEGATIVE [facility] CenterType and screen, automated ([facility])2021-06-25 19:44:00 Test Item Value Reference Range Interpretation Comments ABO/RH AUTOMATED (BEAKER) (test O POSITIVE code = 2260) Ab Scrn (test code = 890-4) NEGATIVE [facility] CenterType and screen, automated ([facility])2021-06-25 19:44:00 Test Item Value Reference Range Interpretation Comments ABO/RH AUTOMATED (BEAKER) (test O POSITIVE code = 2260) Ab Scrn (test code = 890-4) NEGATIVE [facility] CenterPOCT-GLUCOSE [id number] 11:31:12 Test Item Value Reference Range Interpretation Comments POC-GLUCOSE METER 130 mg/dL 70-110 H : TESTED A T [facility] (BEAKER) (test code = [place], 1538) [address]: Brewery Worker/Techni kelle ID = [id number] for PH EN-[place] (V), INES RAD, CHEST, 1 VIEW, NON [id number] 09:04:00Reason for exam:->post-opShould this be performed at the bedside?->Yes [facility] : 1955 Sex: FFINAL REPORT Chest AP portable Comparison exam: 06/24/2021 History provided: Postopevaluation Heart size magnified by projection. Lungs grossly free of acute disease and vascularity normal. Signed: Wero Alvarezepwade Verified Date/Time: 06/25/2021 09:04:07 Reading Location: [facility] Diagnostic Imaging Reading Room - [facility] 1.310.12 BASIC METABOLIC [id number] 03:58:40 Test Item Value Reference Range Interpretation [...] S NOT APPLICABLE FOR DIALYSIS PATIEN TS. Brewery Worker ID - [id number] 03:40:57 Test Item Value Reference Range Interpretation Comments PARTIAL THROMBOPLASTIN TIME 46.7 seconds 22.5-36.0 H (BEAKER) (test code = 760) PROTHROMBIN TIME/[id number] 03:39:54 Test Item Value Reference Range Interpretation Comments PROTIME (BEAKER) 13.6 seconds 11.9-14.2 (test code = 759) INR (BEAKER) (test 1.05 See_Comment [Automat ed message] code = 370) The system Pixel Qi generated this result transmitted ref erence range: <=5.90. The reference range was not used to int erpret this result as normal/abnormal . RECOMMENDED COUMADIN/WARFARIN INR THERAPY RANGESSTANDARD DOSE: 2.0 - 3.0 Includes: PROPHYLAXIS for venous thrombosis, systemic embolization; TREATMENT for venous thrombosis and/or pulmonary embolus.HIGH RISK: Target INR is 2.5-3.5 for patients with mechanical heart valves.[id number] 03:34:10 Test Item Value Reference Range Interpretation Comments PHOSPHORUS (BEAKER) (test code = 3.8 mg/dL 2.3-4.7 604) Brewery Worker ID - [id number] 03:34:09 Test Item Value Reference Range Interpretation Comments MAGNESIUM (BEAKER) (test code = 2.3 mg/dL 1.6-2.6 627) Brewery Worker ID - BSCBC (HEMOGRAM ONLY)2021-06-25 03:11:29 Test [...] WBC 0-0 (test code = 413) POCT-GLUCOSE [id number] 22:14:10 Test Item Value Reference Range Interpretation Comments POC-GLUCOSE METER 185 mg/dL 70-110 H : TESTED A T [facility] (BEAKER) (test code = [place], 1538) [address]: Brewery Worker/Techni kelle ID = [id number] for En nisSheryl RAD, ABDOMEN/KUB, 1 VIEW [id number] 19:49:00Reason for exam:->concern for ileusShould this be performed at the bedside?->Yes [facility] 1955 Sex: FFINAL REPORT Abdomen dated 06/24/2021 Comment:Abdomen was examined in the supine and erect position. There is paucity of air in the small and large bowel. No mass, pathological calcification, or free air is present. Impression: Nonspecific gas pattern. Signed: Andrew Palmerort Verified Date/Time: 06/24/2021 19:49:12 CT, CTA CORONARY, W/ YOEL [id number] 16:36:00 [facility] CENTERName: J[facility] MERRILL : 1955 Sex: FAddendum BeginsREPORT STATUS:A Impression: Mildly nodular appearance of the liver margins. Please correlate with underlying liver function tests to exclude chronic liver disease. No abnormally enhancing lesions in the liver parenchyma.Low-density lesion in the right lobe of the thyroid gland. Recommend dedicated thyroid ultrasound for further evaluation outpatient setting.Other findings as mentioned in the assistant store manager trainee report.No additional significant nonvascular findings identified. Signed: Lise Andrade MDReport Verified Date/Time: 06/24/2021 16:36:13 Reading Location: [address] Radiology Reading RoomAddendum EndsFINAL REPORT CT [...] (< 1mm) were obtained. Please refer to [facility] regarding the medication administered [...] erformed. Coronary calcification was analyzed using the ROBLOX system software. These are the results of [...] to the RCA is identified. Regarding the circle coronary arteries, diffuse calcification identified the proximal LCx making accurate a ssessment limited. 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 NON-VASCULAR: A 1.2 cm hypodensity is identified in the right thyroid lobe at image 7. An addendum will be dictated thereafter by Wire Machine Operator Radiologist if dedicated thyroid ultrasound scan is [...] An addendum will be dictated by the Wire Machine Operator Radiologist regarding the nonvascular findings. THE REPORT WILL ONLY BE CONSIDERED COMPLETE AFTER THE ADDENDUM HAS BEEN DICTATED. Signed: Dung Fletchereport Verified Date/Time: 06/23/2021 08:29:48 POCT-GLUCOSE [id number] 16:19:22 Test Item Value Reference Range Interpretation Comments POC-GLUCOSE METER 108 mg/dL 70-110 : TESTED A T [facility] (BEAKER) (test code = [place]UDY [place] [facility], 1538) [address]: Brewery Worker/Techni kelle ID = [id number] for Aditya brewer (contract)[facility] [employer] [id number] 15:29:08 Test Item Value Reference Range Interpretation Comments Case Report (test code Surgical Pathology = 104) Report Case: [id number] Authorizing Provider: Logan Russo MD Collected: 06/18/2021 11:41 AM Ordering Location: [facility] Received: 06/19/2021 03:44 PM PERIOPERATIVE SERVICES Pathologist: Tom Paige MD Specimen: Mass, MITRAL VALVE MASS- for MICROBIOLOGY then pls send to Pathology DIAGNOSIS (test code = c1rqdVBpCILnq3wrGCUcyRF 3220) uZzEwMzNcZnRuYmpcdWMxIH tccnRmMVxlcGljOTYwMVxhb kPcUZUlsXSgX6ImuwqjFPdd PR2sPF1ulWgelFNzaRKgEWU wMeXpy7kua966sRKcr6deFC NXiwmgeNx7zSamF36zn2X6I pmlO62keQTwNJT9VLAmDCIy rVEiTNNeAEX6DKPsoZRaK8z sABOfZB3jaahgEWfySKhkMC OkdJO9FQJrkRTnK1HcLYGdM XdbMEGdjzz5UvJnCf4xaAHl eTcyMFxwYXJkXHBsYWluXGZ yHiIwWB8sBDWFPbMpGW1UXY JBTCBWQUxWRSwgREVCUklER P5BZyDmWC1DVJQPJGQXLqlc cGFyIEZJQlJJTiwgQUNVVEU nKH4JSVKILYJRG1ARITHEG0 YUW0QUZKLKQgRgA1KUF5sXD GFWXYlDGe4seONyLODGWSUM HNrzD3FSJP8DZQOSMbNEKjO UW3VXI0HLLJ6HR8ZLHFHINf FETZ8XGN0IRBLXJQWYNzLGY LYJFaGWA2vOP2vgAQvsWHBv H77KEjNRFMSPY53bM7mWKZP SZANDG4RNA7tBK2fRYCxjF4 JJCShXDcNXYlOWDAERQO9AE wGSCO5dQUAvjd13KQN3XsNh q2N5VIS0ZAGjGDTvq2csOWK mbGFuZzEwMzNcZnRuYmpcdW JvHNAbRfRlc8fcp091gQBvh 2noLTUcIgN2lXEvCYAgcQSr M421JAXwMUtdc6bgm0PlWTC kkOQdb4H6GERUetdzjYr8xJ qrQ04tu3W5RzvvR2uoGZArU UWkR0UyEN1fKSDmCoy5EGR2 PSF7WLXoZVFtV2BuGA3dQSO sqPFdOWc7d1axcIdpUYMpYG C2s1zaKUikcdIuIU0zce1ft So2n1obbjPwVDNdFPDclWLD UXTdD0CckAnyNo3hzXd2hUb hVtdhLZD2Nph0RF5som03mp r0mXqxEUYefeywJbE7KImsE WOnknopDBz1KJppAEWxwOG8 NRTvaFLwT6PvVSNqRY4sdmi 8GFS2ERtmFFMyWyD1CNCzbA ZgMHZquEtxQIphw603SJM5X aPoAT3sN7Dkn8R4tS1dpHQm VXOiwUFqVkPuOEScnm4rfKJ kQPemf6OoNKH1nkM8oTHnfK ZxQPFeFcL0ASocPH6fvv25K IInFLV8od4cjFKfgZzyzdKw xNObFJgrQ8MuJAEec141DTY pJ5KtZWDjd5Y4bhJfRqMeKB HybTA0aeV1OWHnNR2swvpcd 8ocBAigKUdfNMVwscB2dzK4 BKYgdFEzO6OgkH7uQIBcTC8 nyysif1hwDOO7PYieJEVuZS C1QsGyAYWsp2Njaqq5QpZmx 2ZjpRWwCFnrF82ez685QKTa xjPtR7gjpUYihngvoWHykeh rALajgvU0ARCyHRhgcqqhPT JwFVhhY3ezLpOfXWAdwZtuJ Dysh8KnPBElTMBfBeMweOCq XAJgIam1ZSFndEDzCQTyPlR bX7lyungbMpDGWUZoj7ykR0 xdaDJOzBGoC4JaZEtzfhVcV JzzAIgoKjCxFPEpPV72YLO5 QDVwwy26 CPT Code(s) (test code j7nubPSkGHQitGI8PhRmLAI = 3354) le5vft5RymPAixUSwFAxpiR QztxXltv96mMN4lW81SD8sC FYgXqM1YTXpckR1Wxr9FTCe VVSuhBIrY360t1lqt2dadtN tlQQ5mIidRSNpbsglNaO0DY lnRUFzkumaVAr9TCnwXULae AI3GPMmjWGqW3LgWBHjRA1i tba3NJC8BTgtFYCrPeD4VCZ imSDxLIDpxZtaONhqp553MC X7UdUbTMQdchRpaJqewO5cS nQzCXQ5MTKaLLwlMHhyNJCK O1ktGJF5 CLINICAL HISTORY (test f4xmhJKfHSGvuMG5ErJxRKX code = 3356) eg2fyu0EpxJUcvINpWHctcB BasqCadk46tHX6aD27HU1eH SSbBpU9EKTvboA0Cjn4URJi BDBhkHJaX068s9aqu8ffvdJ edVL9tRmeSRHkobldUxE3DE jiOAFsjzfvJIx3YYinCXRak ZH0VSTovOIyC8QiQGQnOT2y iiu3ZXL5RUxjXACiKeP4ZQP lbIKiSDTzbEsoIDkub474DW I9QtBzTBXejaGwlSogmL0tB vIdEMFVadSaW3GxQUc3qBUh cGFyfQ== SPECIMEN SOURCE (test n3rcyNKpQADmmHO2FmCzUBO code = 3377) vw2ncr7SlqXKmwBMlMGctrL IcygKmfj85gIJ8bG16FS6mQ KRnXlV8JPSixyT2Uwk6IHAs GVCjhMLeV411g3kjz1vofpC coRR5oUrvJWNlewywYrB1KS ovOGJfqysfMRe7ZMblUSGhf FH4COApkABgJ2GdRPYjBZ6z wvj9UUQ9QAkzPHSaKjX5IHV pwFPvYJIghOogANzre320DI P5CwSxBMCmaoTblYakmW7zQ nMyMCBNaXRyYWwgdmFsdmVc cGFyfQ== GROSS DESCRIPTION i1kisMWxLMAjiFAlTqXhBKD (test code = 3366) qBZBzo2sfYKBbvYWhZaTsTb NcZnRuYmpcdWMxXGRlZmYwe 2hmh965yVNpi0llLHGbHgQ5 hRDjHFZrrPJeQ290ZYAnWCj xn5cvk7SzHDQnxNMfr6B6KS VJxxbkgBh5nHbrF67ne0I4U jgpE7pmYHYzUEOcY9UoSU7e HDBnCxh5ZBA7HAS5DQPkOKF kB2OhJA6eWOFukGUvJUl6x5 lyeYhiUDFbIVL0f1erEAnko bFwEJ2bef5xyUd2x1yqzzPq ODXkDWQdmLHJWCSoJ9NxeFp tSe6gbFo0bIftUzbvHCQ5Mw c5KM9fgy77pxi8kDbgNWBck pqtUwJ8JGndSUJygttbWVy9 MFxtYXJnbDcyMFxtYXJncjc yMFxtYXJndDcyMFxtYXJnYj loWVwvAIKdUTO9JPgln625E LJ3GRguc9sic7dwtYLyPxi8 DJZiVwClRldlEWigt8Hdk2u rWZXwrs7sPFR7aMIaeSzuc4 S6tQLuBVKwqXUrwwIqLWExT rW6UPuxFU4fiq50YKEjTBH9 va2rxISjzRshdfTqzLAjHFq fI8NnPLYcb447GTIqA8CvPV Fpp4K9qvAqPgUoQUOtoXH0v jA5XUCzFVm6lSHqciF5ktVt cNZhR0eynO97UfWubIEgY4P yaJ63TeResYTjF1MxlB48Rt YmhYYuU7BgiK43ZjUfhOSjN KNxbZTlAx9rkVUtdHAgy8Pd iPRkIJprI45zi117FQGssrG vQ5qhrZBuohqhyBXbbhjdER hnqmN6SBNrJCFhLMwdVXIpJ GZzMjBcbGFuZzEwMzNcaGlj cOoqKIqtHkVbFYAsXJlgO2h cZjBcZnMyMCBBLiAgUmVjZW j2EWAvsB2wXl7vxENzdH4zv ODsTMpmNEU9qMRhMGPhWNQr UQRpHU22U7FgjA1px3SsZIK ev12kCR6sDOYroPEwYPbups FsdmUgbWFzcyIgaXMgYSAxL pMiG97bbG5ojHBzR8OtFIR7 IDAuMyBjbSBpbiBkaWFtZXR ijwW7BR6fjOdknlJ8qMKukR WiTXqutRHiFZguJYL0Cb3cs DJhVTYlojF5g7TeUGeyPJPr n2CfzXKrWGXmWvokIITwdJC gNCOrhkNrfSdgrQ7mRpXkHi MyNFxwbGFpblxmMVxmczIwX PblrhklRMDiMVyiU8kaDjXq GNEmoTntIMhyu3PeWUWwQXP lLmWfYDFbBFCzt9rnCI78ST xwbGFpblxmMFxmczIwXGxhb bofXYAiCIdxP1brWvCfIJQe hGnwHZuxr8MaRKEdZBPxIwU ccGFyfQ== MICROSCOPIC v6xvbTZdHFPlfSD5PsLyOVX DESCRIPTION (test code xr8iik1RplPKwmSSbRZnypP = 3371) GeflLtat73sQE5wP58JR6uR PLlZxI2EJTinkX6Jbm2ZIXf STOyuGMuY646d9ohl2iwniG iuPD9ePzeWOTfrhknIpX5OX zsODXrqrmkGBq4PUrlDKNge XQ3ZBGeeFOaP7GhPTKwSD2c cow5HVS7OJtzCVZqEjS6HWN unACiJANmzVobKCbfr391RQ F3HxLhRXQtdxNnuVgtdR5jK ySuJBYRWBKxf7YqCZWpRBZj cn0= SPECIAL STUDIES (test i4alcQKhLDDvzZP6AfPgNYN code = 3376) vx8xck8UdsXOooTWmIKbsdT SzpgAkzx42sSS2zD10XM6rY SExWxZ2OVRwfhB0Pau1SXLv GLUswGEbG891OOJsPBImrEm tfvo9eW93UFIokC0phOEkDN otgfIcGNdmkyGgxsTgXqe9T UC8hPepFNTgaqpsKnC2MTdz LBImclwuAGv0LPpcXPDppZR 7KSHslVYsX1GpPFYxYM3tzf g4QJW8QFtaQREgXyU2BHUwo WVzRSKfsIlfUMtsw466RIS6 EaKkDWOankWjdFqiwJ5kCxJ cZnMyMlxjZjEgVGhlIGludG YcwLMpqBH1zA0xYO4yKMWiw TQuL0ViSNUkinVimPNnUHC0 eVVymHOdGI0hYTbxjJJsh6y nh6PuY3lhcHfciZV5ID6eEA AsOLSgOLsta0OpzB3hLzvfI HWyT6XrCNAVT1VJPBHmMBWB So8PEtULHwDkKvVFJx4mLGf NUywgQUZCXHBhclxwYXJkXG QnFHNQm530iz3gDKYltOQmi gLGmPIuaL8nRCzeNWbiIKbb gOHuGOwsg7lqAJUvl4l7rNO aIHKglaXfu9xqOMagzsVbKK TkyKOlrXWdVAAua57yIVmob SrodNxySKLuo6LjxGoai2Gp UwBoYRdry5EbF65fzQLesTB stLukGVSdceKyTAXmu99hr5 hiBHAlXmT6oKDbqXU3wLRhw TFfw1LkiQwuALHbe7akLLZo gx6rlhykgAIfh0QvoT7ndqv aKXijcZKingKvZSOwm0n2rL RsCPAlBLOoWXtcwGf2VWAac 638pw7ipzM3kJWqKWK6MMcg YWJsZSBhcmUgZXZhbHVhdGV wUGSoyuQrONBuhxZKhL32jc 4tmOW0s4ZxBM9dc4TacFY7C WNobmljYWwgdGVzdGluZyB3 IARymWKiZm4qwXAxTJE7XSL gtZgpfuQFpH4nHQSuGKp2YH FtQpHmPhrgbqOSLGRlJ6WcJ FGotfRcpdoxZWQ0xP1mt1v8 AOvuHy1kSYNspuanq5gfbeC dtQCti4DbCBSjunSuy1VaOR UimwVyuWAgDBRdrjXlby9il jUwDEUzLIMtT3UzvtahtFjf bfA1GAUkAJViaPZfmJuaDZD gRFq3ZJlkggUla3WyMmVvvy JndEXujvIvYO3nNWMahQLws gCoREW9ZZXtVNQUXaTbFULb d1LbEH0eXUTerCyfFYDacG4 wg7CeLRIlb12uNUSmSOOQJV EgaGFzIGRldGVybWluZWQgd PrujJYkkOSdZJDaVMZcIO4t JJMusmOsyJSdg3IutMVdhtU tm3UybsVnKJXqTFW9MlQPdW KhgURnrMBrwzL1q3IgNOBlt lNvfFovxHAxoWAjrLEta7Gh qi3mBQAqf8sdcXbeZU5ylWX iZSByZWdhcmRlZCBhcyBpbn Ckb9YaB8G3dF5rHQxep5IrM l6lAYOvr6TasyMeEdLYsIpf PSdbVy7tAYOjaqtcaUNuD1C ydGlmaWVkIHVuZGVyIHRoZS LQvAzhdWQmsPAZYPQlxlU0b 0E7CMjmuFBcqqCiQM75KWKq KP2giZVdqGSjo5RbZVj6EWY tS6qQGX03NUutNRMlsULjyT bykZAdQAVtDTPtueOpoe6gv KnxcBXfn82ulVM2vRQ0PHNw aX2aO4FcSFmiXu2eJTOnpby ctFTqfZvyRw4kpIAouG== Gross assessment was [facility] performed at ([facility], code = 2777) Department of Pathology, [address] [place] [address], Technical component [facility] was performed at ([facility], code = 2778) Department of Pathology, [address] [place] [id number], Professional component [facility] was performed at ([facility], code = 2779) Department of Pathology, [address] [place] [address], [facility] [id number] 15:29:08 Test Item Value Reference Range Interpretation Comments Case Report (test code Surgical Pathology = 104) Report Case: [id number] Authorizing Provider: Logan Russo MD Collected: 06/18/2021 11:41 AM Ordering Location: [facility] Received: 06/19/2021 03:44 PM PERIOPERATIVE SERVICES Pathologist: Tom Paige MD Specimen: Mass, MITRAL VALVE MASS- for MICROBIOLOGY then pls send to Pathology DIAGNOSIS (test code = [id number] 3220) uZzEwMzNcZnRuYmpcdWMxIH tccnRmMVxlcGljOTYwMVxhb tUeDJJyfMPiS1AmuwvxOUnw ZZ9hYU5qeMmqdCLcaOAbFGP pWmEqk7wwx660yANaz1deZN WDoncrwAy9vRmnI44vm9P7M ujsX62roZAmOSN0GMEhIUDk bYNjVMIvTFJ5NPEulLQdY1g uDVUmBF5jxbbaAGvvGPmgBZ FyvZW4IECycCTjG0MzSZRiN BcyBPItjzm5AcBhUp4uzKOr eTcyMFxwYXJkXHBsYWluXGZ wIlMpCW6vYLOUAeHhIO9FER JBTCBWQUxWRSwgREVCUklER Z5XZlCxCT2KZPKHVOHTUbne cGFyIEZJQlJJTiwgQUNVVEU iIP7OITQHYZDEI0BPPSRVB2 YNX6ZJGKSEJbSmS4YFI9zGL LDUDBgDQi0ktQHqHNKYVLFT WRjeN8NAIQ2XTLXOBjJKVjE US6GCS4LZYM6ZJ4DVHWYJOr PZOL1HON4PFLKXYDOXLdYAE XDJQlNON3sFA2odNWplKCNt L72MMhZJSKOJG87eV5jTZLQ OONZVU6YKO2rMV3lMZVviL7 UTLOyOAtSTEqHYDRTBEC4JU nIOAP6nALBqmr88JZD9NkUd o9B4MLU4RTUzAWLqd3cfKQV mbGFuZzEwMzNcZnRuYmpcdW WiIGZeNvFmq7zsd888kWLea 3hvCZKcEcY7zEYpANUiaHRp A033CVNaHUtux8dbe2VcKJU elIEei7D3TEDAhpvcxDw5eN kzB51pw8N8AsrpK3dtEHDbA EUvK4DxNP5wLSWdXfu4GUE2 UVY8AXGaTCFkI8WtWW5wBMB mnWWrKOo8w0dwtLjjXHAuRF I8x1spOXmjgyRtDY2ajn6xr Us5n9vnbaBdHTDcJMEggTSF LFQdQ8FpoYsdEl6txTm4pJv bEuxbWPP0Oal0QN6qmx41sr g9bQggILMywtfnLpF5BWapT BAlgusqEMn3PWveMCHgaWF3 LTUcoQTjD0YyLNHuXB8dths 1IEW7FCdaDNHwSqM1ZEAsvX PlKJConAmsXHjry468NPZ3N vZmSB8bT3Itp3F3gZ2wqFDw IEMypCIoXdXaWUCukz9zpDY pUKkgo1OgDQH1kuW5pKWrtC DdTADhXjC4ATwjZG4pht76U ZKuPOZ5td0wjDFzkAwgsgUf uCZkYHgoA4LcHPEna186CSV tM7FjILSuj7W3vwTjDxYlPA OajXE9ynU2RSSyDB2xmzluh 5pjVHtkPKpvNCPosaQ6ctL6 CKBmyTMoW8RbuH4iOMCuWP7 ysbdag3cfOGE4PEdnLTCbCC Y3KmEeFBRmh4Orupw8FpItw 6TriNJgLUglK10hw186JCOg sgQpT1qyzYCspdfqiZMnuyn aEWawkfL2PIDsPDlsgqvbJF PkEJxjY5buMkPyRVUmgJbsL Hwbf1FiFUCzMMVtHqHljAGf HEZsRfs6FHOzcAXyGKLtSdD fN6smcbohSkOQZVEwn0pbC5 zfeMAUtBIjT0EoWIdshiLnE NwlPDppXiXvNERrGF90IWR1 XRVukt71 CPT Code(s) (test code b4zcuPYsPGVzpDE2OzIxLJX = 3357) au7fmr7EkhBLgcHGbAGaasY BhtdFkch78oPJ8jC49RF0qO VZvTuV6ISQiphU4Tzr2RWDv OAAhyDDzQ595n7fpv3zzjhM hfTC9qPnxLVGdeyolOoV9NH kvGKNijocnNMa2PKwnQZFil VD0ZLJkoQZeO6CgWCUwQJ1g awo5IOR3YHxxCCXbHvJ1ZZX xxPKkQKMclLaaPZivw728WD B1GyQuZFCukbOprNoohV0lI sQuTLD1XIXsSAcvROjgMMUN T0gaYNH0 CLINICAL HISTORY (test y7cvcRYrYPWewNM2WtNvFOG code = 3356) dw7aev5SznONsgGInUZsspK MukjYdgt28nOS4sD68ED7eA PAsDyG2NSUookE3Tak4YTHg BROnjOIbY166q4rta1dgiuC xxMG1rHngFOMkubxtOhT2WF yeTVXlmazkSKz9VZenLCFgr EX1RRGjhMEkD5OnYOVtOG8z fow3IZL4LMmyYPTvJxF8XWL uxZExKPUijSksRKrro249QG H8ItLqWNYanvUdsJgdgA7fS cWlMNENcgRmX0LyRWt8wODq cGFyfQ== SPECIMEN SOURCE (test y4ibqJNpIJDwvMD1PxXaENL code = 3377) vv4fqj5ZyiMTndCXoSCneyW EvolFrqd07dFX6kQ68BP0hY ATnOsI7UVIhijB2Oyq7VPTd QGDnzQMeT468g0rng8chirY ayET8cZqvCJTdebrqDwS8UC fcCNAdztmyDLx9VDdkEHKnb ND9CNQcuMUcW3WhUUXmWT2p aum3CJS5TYyiQMWwNqI1OQV uyIJpDONbpByvFTxyc819LO D2MgKsTAAvsqPmrMyrmE4oN nMyMCBNaXRyYWwgdmFsdmVc cGFyfQ== GROSS DESCRIPTION q4kwmKYsWDZcgTTrZpFhAFU (test code = 3366) kASJgl9oaRZRnxBNrGmJbBl NcZnRuYmpcdWMxXGRlZmYwe 8usq495qONzn8byLAOzUzH9 vFDwXSYxqEBmH140YMVjTUb rt7lrg7OtFBOgnZZjg0T4NH QKeiydnRw9sOhdY53np4E0J omqM8wuBFUzCVMzT4CkRU7e LNUbCtz5UGI3BXD3ONYwJJR eQ9AsGT1nEBNulAVxRMh0k9 pjqSreDTYqOYX0w9ssQMkcx pWhAG1wml4wnSo9k5xcaaHl KPSbZXHabAVNMTLpN8YxwAa uCf1rpAp2eUbxYgxbXFA4Lp j3WT1jey04jyl1uWzqUZVuh uoqBsT6ELflDJAcifmdZYc0 MFxtYXJnbDcyMFxtYXJncjc yMFxtYXJndDcyMFxtYXJnYj gxVHhmIWXoBQQ4RSfnz057Q YB4WSahp7wto8tckPKxSio8 YSJaMqHsAapmYXmbx8Rmk0h dXFOnyw3zJRN4kZEcvHagu4 H0pWBwNXSqtECdhlMwDRJeJ lO8JKwuKV3cmj09QOMiOCT8 om2mlCYnxPwltaSbxOEvMDv iL1TxJTJab731PFAmC7OlZH Whd0N6kvLpIfOvJRUxgMC8y eP8YDXwVPh6kNAjxaM4amOz gNQoZ9cfkT82CqAswCQvS7J kjA96WqNfnNLqD6NhuB45Cc XxmTJtY1UbeE11IgSacJLsP FSbwZAvAq5mrPCjfFMjm8Vv aVMoAAwxM92vl522EBOnaoN vI5hnrSZfxmulmPMofnxyKI jpieN0ZOBhOTKvNKpxIGWjB GZzMjBcbGFuZzEwMzNcaGlj sTofSLkvTbPcXDObCNkvQ2g cZjBcZnMyMCBBLiAgUmVjZW p6WHNzwF5jZg6djAPoyT8cu KEsXSfwDZY6lMSnTSFdDKSz SWUzKF17B5XjrX0wa8RpSMW pr95pXC8eBKNiyYTvBNvqco FsdmUgbWFzcyIgaXMgYSAxL pHfU68stO9thUElF8NuAVL6 IDAuMyBjbSBpbiBkaWFtZXR cbfB0OR3yaGtzgtU1zSMlsE RaRLmaiQHcEGsuBXP6Nh2ic MFvWKXjkeK1p3OjYFvkZXNm w8AvmPHlLUJkHtdtRIKemKX wCCVtxeIvrZegjI4qPvNhVg MyNFxwbGFpblxmMVxmczIwX AekxbknAYVbVCddK9toRwRl XKSezRrkFVqei4WwGWKqJSY wGnLvQPIrMAGhc0prWF64CR xwbGFpblxmMFxmczIwXGxhb jlbNPKlHElxV3ztDcEeVKBb gImfNLdbn8ZxBFGuHWHgVnP ccGFyfQ== MICROSCOPIC v6szdJQkUUIcjPO3YwVxGFB DESCRIPTION (test code cu0nck4MuwQYsgLAuENbpzX = 3371) NwlzYjvn75wWH5hS17KD2pU VVkXjR8SAOwioD2Xgb2BLZt SLHfkDAmM081t8hjx5thqdJ roEQ7sIaxIYPjwlkrOyN5HE zjIEPhovjmOKg1UGpjONErt FC6HQYnmIHiG4JnJMAkZA3r vez9JSP0RSpyABJdRkJ4YBG juGLvYYUsxUbxSGyrd456ND H7SxDyRMZeicMqaXezcE9qJ vZeEKGZNWAcx9AgVGRuZUYe cn0= SPECIAL STUDIES (test d0qhfNItRCRdsUB8PqWfGWP code = 3377) xg7nsc1RnyRKgxPWvLAkboT UiipKvmr67rBC0nZ37SY9qH MAeNuK5HFRiccJ8Qcq4IYQt PGPfrWZnK489WRMpDCCytBo qrkj8gY11UYRiaG3miTNjAQ jfgxByAStjfbMjcwXmEkr4Z FI2aFbyOPZcrowtFcX3WKaw YZStnxgdWTj1QBecPKCgrXF 1YRGlaKZnL7ZdJVIaSR9jbd n6TAZ6JPcuVQGuFpB7BRNif ALsBVQjhCljJNtmu949WFP8 WbTrDUVgvlVtxWmjdB3pUwX cZnMyMlxjZjEgVGhlIGludG XlbOUctMJ5fW9kAB7qPEQnq QEvQ3ZoRZVyciFaaOYwSWU6 pITpqTDyOA0gDHmgiZHpi7f ni0JdX1wqwRdujQC9YJ4yAB JjOAVzTLpgq9DarI9aQnvzW MKbU6ChLYJZG1NBRPYzUSXM Vk2XLtQWZyLfTySEOe5vQJm NUywgQUZCXHBhclxwYXJkXG LqOOHWk937ch2kZRSwnFUst pCLuDEozK5iMVcmXOnwGErq yJSaKMsyf4ddMIXxv0i3hYT jHUQkehQrh5ynLApqclHjJP MrrUPeoDKgCXBhe05fXMxyo TtrwBreQDTrp2MplPcmj4Cq UuZnMWaef7FxJ82nrTJxiAE jbAfxMAXztyZnTHYqq20fm0 yzIPGlNaF8fNRwdZT3bMNgk ZUwx2PevUkxFOBse7suIFDy ql2escbfkPIac9IroH9poqz yJUekzXIfokDcRAWhp4h9nZ YwCVYvLJJbOZblpBo2ONIbu 327tr3cwqE9rLCxSTL5BGwb YWJsZSBhcmUgZXZhbHVhdGV jHXYzwrUhDQKnnaEJpN43wt 7abWS4k1VpJD4ba7VpvUN0C WNobmljYWwgdGVzdGluZyB3 DBJkzHKmFr7zqEQgHRG7SAY shOwdzwIVnW0uWOFwABb6PI WfNlTaXtnkhqAZTDDjB6MvJ KIjjqFufgjtCYC8eM5os9p8 AVhaRg5bBTCzreqls7tgwkO zcVUvt9WmJDGdieBkp0MjFQ LuldYbeXMjUTMoggQayy2oz uDzJXDrIANoS1TkqjpilCfo iiI1KNDoXIRpgVWpvSulDNZ zXQw5FQabnzPpu2StHkJqif QmpRIpziOeEN6qDDPekPKgy uJrSNW2KPYuCKNKZlLcHXSd n2SeXB2yYNLfnOriEQScuA8 xj1MpICMtz08dVWOhMBTXOS EgaGFzIGRldGVybWluZWQgd VhdpPKsnCRxASSmKWKxUX9u ZZHpbvGcqHZrm3QnbWHvuqC vh5ZsgzXrYMIaAAF4TmXCdN KmiSUdmSSqlqW6b4FuHTAtm cPdiSxdlPPlgVGapQDpi5Ha qb3bMVEru2zcbPtqLM0vpFR iZSByZWdhcmRlZCBhcyBpbn Tkr1LfX2Z9xA7oHJyhj9FpH x5dUWYer2CdphEdMaQTlHbk TXkjXg6mRBYmofukkHDaR3R ydGlmaWVkIHVuZGVyIHRoZS IVlLkpgSLgmXVQQZJptbK9x 4J1QNvfvXEhkpMmQN69ALOa OA1isJIrzSUzr2HqBKy5VBT eA5fLIP82KIkmAVHrtJVecO feuPJeAPRzBIHtzaErko4sp DpyrRJsf74qcCP4qWX9NEKm xO6bT5MhXVhtBd2cZOVediu pwMFhbRevVf6bhHQaoH== Gross assessment was [facility] performed at ([facility], code = 2777) Department of Pathology, [address] [place] [address], Technical component [facility] was performed at ([facility], code = 2778) Department of Pathology, [address] [place] [id number], Professional component [facility] was performed at ([facility], code = 2779) Department of Pathology, [address] [place] [address], [facility] [id number] 15:29:08 Test Item Value Reference Range Interpretation Comments Case Report (test code Surgical Pathology = 104) Report Case: [id number] Authorizing Provider: Logan Russo MD Collected: 06/18/2021 11:41 AM Ordering Location: [facility] Received: 06/19/2021 03:44 PM PERIOPERATIVE SERVICES Pathologist: Tom Paige MD Specimen: Mass, MITRAL VALVE MASS- for MICROBIOLOGY then pls send to Pathology DIAGNOSIS (test code = [id number] 3220) uZzEwMzNcZnRuYmpcdWMxIH tccnRmMVxlcGljOTYwMVxhb fTsUFGzfVJzV6TclfhrVZeh HD4xLE8wwLeeiJBehXSwELS wZmMqw9uiv816yLTmu0mbPL ROaqakoQg7fBlqY74qc8K6W teaL89zaWPgHDA7ACBbJQXp pPQlGJJoUOW8LLGmnORqH5r xSKUuBO5mxgjeOBqcSTywFW GiiGY2JPSvbHMgT1JaEKMoA JqfHUGzdxp6GjXwNr1jzEHo eTcyMFxwYXJkXHBsYWluXGZ fFxOrRP5fIHXCPsHgWA8YLQ JBTCBWQUxWRSwgREVCUklER C3WAfLkMN0DUKBUCQYLEwrg cGFyIEZJQlJJTiwgQUNVVEU gMR2YHIVQXBJFV1TUCWZTG1 JHZ5ULRSAQIoLkO3LUI6oDF UGXBOlYJn0jlGZyFRWIITKZ QRgpA8RWQA7EWHTMAtNZCdO FP8OEY4ELBQ7EE0TIRZILUm EPYD3CTJ0TRQZIXOYRJvOCQ HSETwIGF3dVZ0lwEQfbFEOn Q61PGrFAGXAZF39tR3jFBST GGHKIK0ALF7eDN3gSGUskU7 CAKRnKZrULJaJZVNVFBI2AK cRMGF7sELJvsk80IOY1VwQc g7U7CMD2IQItASDco5ukKRR mbGFuZzEwMzNcZnRuYmpcdW DrNQBjXyInu3hfg131jTXnm 9ydHXRuMzV6eWVcYIUqbKKs P707JQEeCEhud2hyv0DmPXM kxKIpj3E8WUGBhastxGt2aU moH98lf3T5DurfF3gnJAAwV JBmP6SsFO5wXZVuZwj9WBA4 MQB4QWJkFZUsS6YpOF1pQJF qoYOsMUa5y8sgmHfxYGIoYD B9d7oaTTxsgeHxNM4ssn7ki Xe2e2lwsqJtTLNpPVTmoGBK YHCiN1HumYhpJq5giDl4cGo dBbnzQXW4Cky6EE1pox27yl c6qPtvYMNkerjuLdQ7YLtcA PGftvsyZLz1DOfdCNYsbMD3 IUKlnQGcH6QgQWEfMP2gabv 6ZJQ7POuqMXAhQfZ8MKRmkR KtZWOykBxeNZtcc109LUZ7W uIzVN8aO1Eer3J8wT3tcRFi EXOuzXXoKaSfTNZtck6zrUF gCDrzg3FhRNX4yiX4bRXcnE KfHKLjRwY6PAbxWX1sir64V APcRZO0kq2jvQTswSzrukQt vYTeKNsfN2VwCFHju016OHP cT6FsXGVjw1K5bxJaWaOaTX DnnHP2ujE3GGOtGE4lyjlxq 7tnLGciYFqzSFPoyqE5reK0 HRMyxADfN7ByyM2bLSYtNS7 lcpkwl6dwCMR7ENtnKFCkQS D1AkExZFHgz8Wsizp1HuIvu 7HixZOzKEpfD44vq402KIAb clHvS8bttRUwactkeNAnrxf sWWiywjG9VYWcJMubdrvpNT ViJUsgC6qgGfJsRMUbwImaG Oakj3YnCIHaWAXqHdZlvVEc XYXiGvv7UDLodHOiNITbMhN nK1bzxzrnPjCFUEVkl7zcE3 igkMOXpIVcK8RvAHwippGiA AhlTQejHnFcUUHoBV79YHQ3 EXMxri73 CPT Code(s) (test code o8jfvHDpIJGgjRP0VnDeMCE = 3357) nq0wtt3QqtJCgaJXfDKrroC IfnaPuvu54lPW6yV70XE8bY FBtKnU4PSCdhrK5Sjt6UWBa NDVkxGPnJ223z1pav2hcdnE dvJU8pAndSFOoltgxQgG5TW pcRCMxtkfyGJb9DHxqHRXfz LL0JIRljZBzO5PhPQGhOW9z tiz3LOU9KUyhIITaLuH8YCK jlQGaDSIfbJilKSgnt091NQ Z0UnVwQBGxgzRltElaqT8iQ qJpDKJ5ASHcRWyvPIwyKYBJ L6upKAG7 CLINICAL HISTORY (test b7gkqGYpNSUowCI4PeXmRBS code = 3356) ik9awd8GtoSUjsXZkENogxY JoeeCldq59jER0zG26RG4xP UHcLaG2EUMphlF9Iop7FQTx WEDawEIwP933m9xxm5sctiD faFL8kCfiGIFhsffeTyK3MV vcFPStlplmKDg9GOzoOKKrz OV5AMBjeCTrA8RcMJCyNA2k xtk0NGM5TUbbVTBbHxQ4TZP hvOQzLSKxiOwgIEccn958MQ V8ZbRhUCCsxdTlsReblC8jD xNmQYJUcjYjA7ViVCs1yODs cGFyfQ== SPECIMEN SOURCE (test w2vpfUZkGZLtuCP6KtSzPDZ code = 3377) na7iwt4TecMNjqVDqMBhsbC SyitUonz63cFO3oQ95WP1rT LWySlU5XNXqvoC3Fkv1CQRl RMWjzDTmU809q5vas3nyphJ qwBN5bGovTDNywjymAsC1IL syWZUmgpihXQd4ZEmrTXVpn WO4KPGgzNBqM8CuETCcLO6v usw7KAY3NRmnCDXiJkC1LDM bnRVtNXQeyKikNZlua989MB F6HlTvWMJotgGvhOhfcK8iE nMyMCBNaXRyYWwgdmFsdmVc cGFyfQ== GROSS DESCRIPTION u4cjzCVbNUAulVPrXiXsSGV (test code = 3366) zYYFgf2kcVGIwlYKoHdHaYm NcZnRuYmpcdWMxXGRlZmYwe 6miq499sQCci3msDQCdCfN6 sSQdKNOokTNeW483ZZDpSAm vq0rlf4XjFOZloNNep0E5XW QYfsqjeKr4mZvyV25pb2J0C eugS3liNKIcQTYoR8ZaTE8y FPLsGra5QFJ3ZCM1HTOtOPC yX3SlCG9qXPYlxDNeJOl2e4 nuyJghQIYfKUG1t4nhFTyvs jLlXJ2aqi6lwTv3x5uyhxRv LDBhAMRvnKUXOQZiC2BxbFw yGh2wbVf9uMnvHjwiVKE9Jk x0GL5evs22kki9vLiyMOJrq hpoFlI5HWkaHDCidkwvMNw2 MFxtYXJnbDcyMFxtYXJncjc yMFxtYXJndDcyMFxtYXJnYj cqSRusKOBmQUC8NYuje150H FJ6BFwtx8wgr8lipWAlZrv2 RPYiRnTkCviuHKnpl9Aqf8o wHPNmlk0qGLP3gTXlqCqsj0 G5qZXgEDUbfPRtsoKhGDLnE fL8PQcnHK5qdm70OTCgKRC9 fb2cmJFhnCxbtgNysIGoQXr jM0TvBESzn665MRHaA5UvRY Iuj7R7pwXcBhUlJNEccFI3w nB2UMMbWNa0uDWtftX1otDf pFBfN5udvT72ZjFyjKRoL2E dvL64FbAzlYSmS1QgrR64Ka WgpXXrA9CryN06XeQaiOIlC EFfbZOaJc5boLAypJHva5Mw vMKlLKenM08ms107FXPpfcR xY5grcMQkkmmqoNCelqubRZ ydrjF3CRCrQVWyWNeaZOVpR GZzMjBcbGFuZzEwMzNcaGlj cJokKVrdIkCoKYGnFBxcA7w cZjBcZnMyMCBBLiAgUmVjZW y7GRIecO7iXe4psYTauY4bc NFgKUrxFMG6iRTjZQBtTAQt NGIpNU59C8MqhJ1xm2SeDSE tk36pGV1cIHNmeIFeSQggeh FsdmUgbWFzcyIgaXMgYSAxL kTmW36svM0kvHYqO8TtALN8 IDAuMyBjbSBpbiBkaWFtZXR ztuD9HM6twQqzzkF1pRUusH LyBOxntLJvFOniUYD5Lj4cc OTmLCTuxhM2j7NrIDrdLSPi j5IajLGmSGMfJwulVYGjfFF mAHTkdhNvpXogoS5yAsQzHj MyNFxwbGFpblxmMVxmczIwX YiubpstXOVpSPtnT1kwOmXz RKChkHwbSNxyq6RoODWhLBG dEyQaFCJyHMPms2bsSC08LD xwbGFpblxmMFxmczIwXGxhb rbyQKIkBVrwX9xyCkIsBKBs tRbxTOkcy7KzWBMaUBIbZnB ccGFyfQ== MICROSCOPIC l2brcFDuNCTqqZW1CbJdJCH DESCRIPTION (test code ba6uby4EtsLSuyHVkWVgbxD = 3371) SwunDsnw72zCL5mJ21TK5xE UUtYqM2SPFiqnP9Huu2GJHk ATPpyNBhZ777m5tcr2btfqK piKO2yPaqJTChntguCsJ1WZ yqONFbejxbGWj1SKzhMXFsd DQ0HVCthEPzC7AqJLGaCP1j jrv5KTE5RPwsVPTvUfO5HLR orTXvWCTwtJhnALvhk322RC Z8NdQkQUDvdjOasFpdrC6hP qNgKGWKBRUno3TnNUTcUONb cn0= SPECIAL STUDIES (test t4xkiDJuCBNwxQP8TeSjFPD code = 3373) jt5lnh8FvfMQokNDcFRihvL RhhkQgvw27gWR7mL47PB6uH UStYmY0BVDcyoF4Hlo8OJAj HMFfjQUgL896PCItRDUihUp xszf5rD55WYSkaS8vrXIwLG mroxBaQGgdiyKpufWgIvt4C KL9hLjtKQPkxgywIdH4HVyj FPNtgyzxJXq3RJfcVGFqlVR 0BYDleGTgP5EhXLGoFG9rve l8TBI3ODkeBOWpFeW0YOBmz RPjQDHtvEllHVttt504CLQ4 KyMmRXWizpMseYjkhI7nIkE cZnMyMlxjZjEgVGhlIGludG LwxSFdtFV4mN6cXX3dPELab QSuR3BoIZZanlIpbGIdCSO7 gPUphNPaIN7tVBzjkYOfq3y dh8PiM8bihPsaeFQ2XU9uNN HiJFWrMFvpv9PsbS7gMmehD FBaS4QwRCZQP8UENYScCVID Oe1CSgUYQlApWnMJUr9xOQr NUywgQUZCXHBhclxwYXJkXG XwHDQEk816ir6lSXGtyGTal bGTzDJkoU2gKRqiLRqwWMpk eQTqKEwyf8urTQQdz9m3fEW dFKKixnQrz9lzFTaflrOsBD ZalARxnLHmVWDmi95vZXous IcypIcxNTAbh1MgiNjjq5Km AcCgNEqhq2ZlA87urPVsrDM ypVyoYLFaqfVvDQYcu28gr2 koPIKlUhG3rXVakIL5yZBuf DHsl6WrdKmqVXAaq2ydJUOs yc7apeyiwWTkx8YvnU2fsli yFEjxeZThhgYlSVPlz7t6aN LyLSNeGWFbCEgxjPn6GWUzm 369mj5hbtF5aZArEDM1JUcg YWJsZSBhcmUgZXZhbHVhdGV jRTVtcfWmIDFetcMJrD20jc 3tuQY4r0VxMK1uf4GdzEQ8X WNobmljYWwgdGVzdGluZyB3 HIUdqSSfZf7nmXFmOQF9YFO orKziodJNkZ9mADUuBMv3MB MbUiSwVermsgSTTCZpQ7RcB LXplkZrihlrYXR8pI6in0y1 OWigSx0pLOYorbbyv8cviuG scBVus2UxDIGyqbBhg0OeIP KjhtJtfPSyJITxpwHppw4hp zKyKOMmGQYlS1XcjozgoOoc ikB3LEFbMDXdpPXtwLxxDKD jHVt0QOwlfwMfu3ZjAyEsar HhpPSiagYrKX8oIQFybATws pYqNNQ5WODaBLWFOnLkKEZc v7PgMT7qNJTglKuqZISgzA4 em1ZgILXod64oMZUfCNWJWX EgaGFzIGRldGVybWluZWQgd LvniZYvpXEgWAJiMIBxTI9m WDEmxaGpcTDki2XrhAEshuB ki1TlsjSsWKNlWFP6JsJHeS LvwRTbuEUsogA2u2KtGTOya tVbaKlsrOGmhZDtzYEce8Rx br0lDHVns6qkaTodTU1jsBE iZSByZWdhcmRlZCBhcyBpbn Fsz4YdT2U9yF3sCOmnx8JbT z0aTBMrf4ZcvxJrVjIQlCie CAuuDi3nQCPuvxjlbMYgK5S ydGlmaWVkIHVuZGVyIHRoZS CSuRqhwFYnhJXMKDQflkQ5p 8Q4JPeloCCubpSlPJ72UNFw LO7auEAxaHGsj5KdXSm8QXC mO0oCSI24TRouBEWxuXPogI pfrKReLZQkMSKmqwJvmb5md DalxDQvx46cyXV8yOB7EVAl bE5qC8ObIGjsWj2iXQByfjv hmHRfcCvrQc9ktTWmoT== Gross assessment was [facility] performed at ([facility], code = 2777) Department of Pathology, [address] [place] [address], Technical component [facility] was performed at ([facility], code = 2778) Department of Pathology, [address] [place] [id number], Professional component [facility] was performed at ([facility], code = 2779) Department of Pathology, [address] [place] [address], [facility] CenterTissue [id number] 15:29:08 Test Item Value Reference Range Interpretation Comments Case Report (test code Surgical Pathology = 104) Report Case: [id number] Authorizing Provider: Logan Russo MD Collected: 06/18/2021 11:41 AM Ordering Location: [facility] Received: 06/19/2021 03:44 PM PERIOPERATIVE SERVICES Pathologist: Tom Paige MD Specimen: Mass, MITRAL VALVE MASS- for MICROBIOLOGY then pls send to Pathology DIAGNOSIS (test code = q2hvhCAzQPVtx6qvDSBarEP 3220) uZzEwMzNcZnRuYmpcdWMxIH tccnRmMVxlcGljOTYwMVxhb sZhYTPouNDnX6DpmnawZZbg MH2lNO9nkKvslIYxtMJcCPV gEdQjl6ifb930lFTuc4kjHY BLgruhbIz6gUneE51rp3A9R stxE85naXJaVWC2XSHxXLTx gTLvHMRgXDE4ZYOpyPRiJ1l rFMSvHA1pciqiPEcuZHohIA SorEW1TLSalVWiO0WsEZOkK XpsUXOrirl5HtUaHw9mmPMk eTcyMFxwYXJkXHBsYWluXGZ wJqXkZM2fZIWFAtZqUW7SUN JBTCBWQUxWRSwgREVCUklER Q5QFlOdNK2TBWCIJYUVDwii cGFyIEZJQlJJTiwgQUNVVEU iYZ2VPWBPPHOSM5VBKTYZP8 REZ5RGFCHQPiOcL4JSB8ySS MSGNDxPXk8viAUgUXRFMPBK IGouX3WCEK8XMONBEpMSWtR WS0DDS5TRHM0PR6XWAXIADq DMRV5BIN5FQMVPELDXJiBUY LYNLpQKG8xWH2swOQrgXBKm Q04MKkZSPPAHD83nN5dPEUD QHYGJP9MQX5eEV2tHUMvuK7 TJHHsCClYUHzUPBHBLAJ4NA pWBVE8vMQVfxu00NUN5NdQb b6C1UBZ3GQMvBIPzj9bsJUQ mbGFuZzEwMzNcZnRuYmpcdW XlEIGyXqLcq1zkp503kXIip 2oeYLRcSjK8fDUlIIJkgMSa X537MZLaZFxil7vdb8FeECM gqQCca4W9TFSOycotxOs6kC hmJ33tm1I9CgquX1vaLXPlR NIuL9IrUB6dWUKeAdb4CMJ0 ULK7UPPpVUVaM3LcCW1iEVI knGNoHYu5u9gkuNgzJUKqSH U2d3adAPjyzpJpTB9cdl7ip Ag7h4bslaAhCAPsRQMndEHH GXGhE1VuxVzrKk3vxIo2jPx kKpsaBOR2Klt9HN7qew29jw x9xOpfIPFoszxeKwA8ZUgiL UOsxafaEFu6LFbiILJosJR2 CJJjtQZnA4QuCEInEA2jdze 6NOO9HAidUCGmYnV3YTUidQ QrRRVzwJvyWFiuo439TLP9I yZvDY3nT7Mso9Y9xY4beWZs JYNbdVLqUvWeUBBobi3tgYQ eWXvgm4PrGWJ7rkU5vSTuxY DmHNFiAzO0BAszFX6zzj54I RLwDUY5vw0mmLJgnJyfptZc bRGtKKnzC6NpCLGmx781LJD yU3OlDOHhs9V8keEwKpYdTQ YvhYX8elQ4GDGcDD2gtzzqm 8tcTStiRPvnNHNmylB6mtE7 VRIkkVHbH3RpeM9oWOMhQO9 lfvkgb1fpTKF6CRokXQJlYY T5UrBeWVUcx6Tuocs8SmQkb 7RkkSEtWZkdW56qp012MZBc jzVcH3xavUChaamlrELatit nAPaiatU1DOEgEXasdpwcUL YzDMcwS6vvPmHiEDUpbOvfA Agkb2EiWOLzKKHyIwUnjTXs FPTuPul4MJDzyXSyFTEqKlY oU4irgxcyDjPPTMDfd7lxT0 fanXUOwNXsE3NlYSbuasBeZ TyqZYpdEuQoSVXoNR91FRQ7 PWJjxj92 CPT Code(s) (test code l4pjsWMoFPDmyPN6SsLfLXB = 3357) lo9mae3YjtWWmxWWkJUaqpT BkxyFdgu76yAR0zZ60PV0zG YSgIcW6LGUgeoX5Raf0MGRf NJCxkUHsN111u5cfg4vcttA ouRF2hKbhTGVkrpmwOoT3WS qyXEVczarbAXi2CYymVFOov ZB4RRHvbXTsG7PyXCNfKZ4y luo0LZZ4HCzzZDAuMjS1GJP rbJYuMARmdCsvYPfeb836GT C7CfTcJQPievZaaTuvdR5nK fOaGNF2IOXxZCbmZIvsBMOU U3zgPJP0 CLINICAL HISTORY (test o5bmaMJwUQDzqBV6IcOxKSD code = 3356) za1kcc0EdqJTyxZKcZXxwiX QwvpQqxt70kTY2cL81ZF2hM JHlAtQ4FKPcrrD2Xds2GWDz FDMvtXYrR991f7enz9avqmY kbQA3vIcfDKWzsmegMyC2FN nnHENligzfYLx0PIqzEDJid NW5CVRrrMWiP1YjHLIyFU0s kky6JDR5TZxyFXIeZxO7GPM mjQBwZPDusAnbFHyhn521MF Y7OfRfZBGskpUqmJinlF6iJ cDnBTFUozNvR9JdAUy9cEGl cGFyfQ== SPECIMEN SOURCE (test f9fnvGJpYWGzvLL5TwRgXYX code = 3377) bo1xdi7JigSJazHJhTXqatG GoheQxzc64zGP8uD16JC7iB KEvFxR0SGWqrfD0Yvd7NMRs WNRpbYRjJ567e1zyw1kktzM baJE4iGimZMEfrbbwVmQ8SP wzYPWzoiotUGu5JPddARWwq HO8DCYnjLPrI0AkWTMoLZ8d etu2QZZ7AZrtQXSeIoC3BZI zyJEfQPLiyFtrDXleg073PI V7UqUbVZQgkjTnaLjfwR7pW nMyMCBNaXRyYWwgdmFsdmVc cGFyfQ== GROSS DESCRIPTION q0njmEMcWUGqlTWxBoLyTWD (test code = 3366) yGGKst8chFHIhbDNrGxTzUj NcZnRuYmpcdWMxXGRlZmYwe 1mhd117aSBmb9kiAJHrVgC8 jXBwDLTcxUWgQ800UICxISx yb9fdv1ZbEQRmiBAjg7F3BZ JNvwinqEh2ySccE36wq2N1W vgtM1stTIDxUWMuR2JaUE7u UREmQlk1KBS2IME5KPHwKTF gT8OaOD1nBZKjmKSvUSh0v1 tvhUskUIJiMKU3o6seNFpfx hViPC6fnf8aaRu9q3mpfmVk VQBoDAVukUNHYCSpT1LhlWl iBd3arPz8mMrmQdnwGSJ4Qv j0GN6avp03zph2pJgaCMNmc ggoOaX5RTgoRMQwehdcNFx7 MFxtYXJnbDcyMFxtYXJncjc yMFxtYXJndDcyMFxtYXJnYj kdLBqkIGUhURT6QUioe098Y MN9JQyeu3qxh9coqMBbAdb1 BEAvFuGpJjvjJMnrm4Axm5y kCWSuii2mMWO4aTFkxZdmg6 S7tWAgTWOrqPLyumHbNPCoG fA8GMkrQX5cch06GLPyKHB3 vc6bbPZcnJyaktRkdCNgMQc sL2DeAZMtz442VAGoT8XyXU Mwx6X8aoKoLeSlPNOucYU8m cX9GOFbYAn6rNEbcxO3mgGz oGIjZ2knqC80LpMwmQQsQ8B arF48TmByxWWjJ1NtlV09Bb IyvIHgS7DeqQ52YpFnqCZaB AZriBBkBi4okBJfkJGlt0Jw wWGqDYfgF63qy635PQOmonY tG2egfQJxgqnxpUDyqmmaDQ rmdiV5ZBXiFWZyDPhgCUWtA GZzMjBcbGFuZzEwMzNcaGlj kWafWIybUmSgKEYrBUymR9b cZjBcZnMyMCBBLiAgUmVjZW m2VJXuvT2aVs4yvGWrgD8il GYiCRrtXQR2lYKuTQVzHTIe HDRpXT13M6PndF0tg5FhYDX rm96rNW4tIENokXKuVXtewg FsdmUgbWFzcyIgaXMgYSAxL nZuS57gsD3lcSTxK9XgJSV3 IDAuMyBjbSBpbiBkaWFtZXR xmwX8XX7rgWfktiQ0iRCqqU EtBRwylMTkZDfhLDZ7Se9eu SMqUCRgkwB2b2NzKZfoBBMa b8MidZWiWTQsDlyhUHUmuCD vOXIqjeUmlWmwsU7pGxGbXz MyNFxwbGFpblxmMVxmczIwX ZmqyqhaMDZtKBetR7vgRdZw URBtdTafEUqyl6SwFWJlEWU pCoStXCUhJWQjd1psRF50EI xwbGFpblxmMFxmczIwXGxhb vgpBIPpFJnrJ7foTlGkYDOh tEgsVFibp9NgOUTeHCHlHkH ccGFyfQ== MICROSCOPIC g4qttWFtJRNngFI6PkSlCAU DESCRIPTION (test code uz7svz0QbdLOgxFFgAXbyjE = 3371) HhjtMbuw62mKU5nF58TA3aJ EOuJsA8QSTypwW8Nww7HDTj HQCctFYeM545l5vhf7ekqsF ieTW5iRweXIRmxeixSnZ0CA zzUUVxikkpBGn6VBezNBBbd KV9BQNnvLSxH7QuPBAvDR1e pvt4SMZ6MJwoIZNmLoJ5QXA suPSdDILtnTdxNIybp220WV N6TfEbFJKjrcIlmSiagK1vP zNkYPAQCSNwt7VjTYHtRTEo cn0= SPECIAL STUDIES (test f4fcySHqJHIjfGJ1XrBnJDX code = 3376) bu2axe7GrtJPyxOMrCFuuqP LoutHetd87gQD4fU05NM0uC WWbBdW8QYRlqyQ6Atq4IYAv OEMufQVyF659IBTkMSEjlTq xtgk0aD42IOJskC1grEXuFK wtigXvFPpweyDpjuIaCcw6C QI3wKckEVHoleblCaY4KVwt AFBthputHWp3AMbcQLGvvTN 3FCXvzFTcC9WbVKGlQU4svv k5ISR6VTciTKVdTbW2SQRyq UAgJYSutUmcOLpsn020XHV2 LfBlDRCsswZryXlcdV4tGxQ cZnMyMlxjZjEgVGhlIGludG KjhNTmjWY8bZ5rLT0kOYBwo AAsN7YtFOUbhgWnoBJfZNF0 iIFfyUBeQN7nUMzisEMmi1i ce2CzF5sxdYnfwEZ1QX6oYU IlZAPrOZkfj4PhnZ8bXiagX DIgY5RkGHFVV2AXUJCmKXWM Sb1YXdEGWhAqTyOJQd9tXWa NUywgQUZCXHBhclxwYXJkXG MvHGOYr655oo8xHMGbhQVkl lURmUTyxI0vBWgfZGjdJMxc pEZzXRdyk7deYDUjo8b7oMD hRKBilnDsa9ldNTnwlgCsSI PtrGYvzWInCPSnm52iRUquz NebpGiyOIKyy1XkzYobl8Oo KcNhDEuxp8TrI94mfJDugIL tpEvoPVImqsGjQQJcy54kr9 llWWFzYaT3nLThqYN8rNNyw NFsr0SfbPbfAKTiz4ujGADc gy5jndfszLIpd3WwrV3afks sZHdfkZWqloPjBRPtj7m6uV FeAMLxWDIsFZoxrFj1LCNng 131im2sifP4rLTiZMW2QLwt YWJsZSBhcmUgZXZhbHVhdGV aUUJwedPjMGQdrfAFiC41bz 4ngLJ2k5UoHG4ds5DxvRR3P WNobmljYWwgdGVzdGluZyB3 BFDuyADyOc9afHRaITU2GAW meGuyfiZWmR6rCIHfHAb2DP NgEhXiKxxwqoWYCRGrX2AhF PIhbqHbfmhbKTG4vJ5nu9z8 URpgJw6cXDJrufyhh8jrtuS wwKXim2RvJOUnwqFfu6WmVS PcdqPisJTaDCXglxUyjo8en sGyFXYwRDEzX2NjspkoyEkx hrR5LSBpTTYpwYGohEvaLST jHVl9XCbjnxHhu6EnWqYcbf HqcWYojjChQH1tEDPycTSfm aJrWVE4SEXcAFGFLlKkCXUi s0WfEM2xPNZghIyoLVPuqC4 it3DtDOOiq96hKMZkWQZKJH EgaGFzIGRldGVybWluZWQgd DwprJSgqVZrOMDiJWIoTQ7s QZPtndUekMHsh1SdmOIdkiT iv1NdqnMfOQYrXPU4UhSQbW MobEGnaPXzisT0q9IiUGMqr zBxgJufeKNwlZPybXCwx9Ly nr3yYIVqc6vkvOvrSV4coEN iZSByZWdhcmRlZCBhcyBpbn Son1LsP5O2fQ3lIRvon4EhU y3nSQWkq5QjfbFzMtTQtCas EKmvSf9jRXQtpqxgdKNjU4W ydGlmaWVkIHVuZGVyIHRoZS EFkSuwzJEmpAVMXMWokoP8s 5W2TPfhcQNcxfEsZK17XVHc KF9syRWjyYNfa9IiJWh7UPT bE4gNGT63HIpfLDPrhXVenE yzsFUnWFMuUHXyiaDkiy3dq GlhvHVml46glTV4kAE6KQVm xR4bY5TqCYvsUt8dASGqmty xcTEzeIwaPd3vtSMpvB== Gross assessment was [facility] performed at ([facility], code = 2777) Department of Pathology, [address] [place] [address], Technical component [facility] was performed at ([facility], code = 2778) Department of Pathology, [address] [place] [address], Professional component [facility] was performed at ([facility], code = 2779) Department of Pathology, [address] [place] [address], [facility] CenterTise [id number] 15:29:08 Test Item Value Reference Range Interpretation Comments Case Report (test code Surgical Pathology = 104) Report Case: [id number] Authorizing Provider: Logan Russo MD Collected: 06/18/2021 11:41 AM Ordering Location: [facility] Received: 06/19/2021 03:44 PM PERIOPERATIVE SERVICES Pathologist: Tom Paige MD Specimen: Mass, MITRAL VALVE MASS- for MICROBIOLOGY then pls send to Pathology DIAGNOSIS (test code = m7ocwBMgYVFac5fkDZSurUR 3220) uZzEwMzNcZnRuYmpcdWMxIH tccnRmMVxlcGljOTYwMVxhb yRfRVJqaFKeE4RpkrvyVXoi ZV6nEW9qpIutfAOcnCJiCZO vYeXtd6vrb000tKSso0nvWH APnjwkuJe8mAngZ74qj6D9S lurK35egQMkQXS2XUKlOWCy qOFtNJCrQUS0TMTitXNrG4z nKIOzXB8pymanWBvdKRxhTI VbjYB7QGDzlYSrL4FjITScL DwoCAMbdmi9UtLbBj5vxKWj eTcyMFxwYXJkXHBsYWluXGZ jNeUnOB1dJYHXYvGcMT4XNM JBTCBWQUxWRSwgREVCUklER R5AIyUuDW4SLXZSMEKDRnjq cGFyIEZJQlJJTiwgQUNVVEU uBG8YPPIUOZGXF0BHYCQTJ4 JFQ7OQTYEIToIaR2QZA4oMY WRBFAuKVi5icFFhWQCFKMPN EGbzR2ZHDZ8KVSOGYaPFRdP UJ4YVR1AHAN7EF2SONFHCAj LAKA2OYD7SUHKKUWBRRgRNG MSRJbUOQ7iOL5tzLLxmGWRm D93NEiBMPSEGM18vF6lFLGT FKXRCG1FEA9oWC0wJMAjqX8 SZXCsIOpRJXhPAJCAAJY3SL mEIQY5dUTPgvw76SGN8ApDq l8W8PDI7CWVhMMKwy2whNTA mbGFuZzEwMzNcZnRuYmpcdW SbQBGkHiSzj7fqd177pIWky 2yaIIBpUfT1gIDpDDWvrXKz U261LISnONyzd0zvp7JoUAO ekBErn0T0MHKYuqfnfVv5yW xrK33bz0I4TbkwW8ksCMLsL IYtF5XaHC0gWXZbYdt7BOE4 LXE0MCUnQFCmQ8GrCN6qCQM tnSBcSSh3p0dstLgzBGKaAS U3t4qnDYzotjEfML9phs0ul Zo4y9posoVqEKOyHOQkkMZL LQVgQ5JxmUztWs5biBu4uAi aQfwmFUA1Myn4CS7fjc16kn z1rLlfWZEbalcyDnT2VFfzO UUcbmvePGs5UAzkVEEcxTT1 AZIypXDxY6DxLMBrGM4wkvm 8VGW1FIoaOAOeEhN8FVKgwW OqPIRnpYniMJytr946JQZ4L yTqSF3tP2Got3L7wO5hoPNg HOAhnPBgCgVwCLSlcd2fyZR zKWfsu1LfMWI4hgW9nVXbwK RvPMXhSuO8OHrlKE8nje20M DGiFRH9xr8nfBQkgMuqidMj rCDyQAhoV0PwPSXlo860JYV uF3QiIWAzq6K6siCqGlXoSF DrlTU6hiY9EOMmMC9pymwga 0cmYRewZCruGQVignW6inO8 XHSeuJBpM1ZjfP8bPCGzXA2 lktung9pnCPV5ZMvsSPBxMR X2YuAvGUCdb1Ftmiq3TzSeh 4CuvFIvANorX34bn194RIDf roPtU8krvDHzowianUQfnzi qPVoovyT1HEHiGPtrelluKK CvEBrrJ5dgKhWzYXHjtKdoE Mbtk1NcCSKpUMCfCtInqIDs WXOlKcg8FWHtqZDuRFFoAbO eL3ctwlkqIaEIZGRhl5mcQ1 zvfWUQnVSyU5KeSVreajItU BwpIDhvIiDuJMHkRV08MXT4 DCSbtw50 CPT Code(s) (test code s6vqoLYbBKRwdED9FbQeLRH = 3357) pr0lsl1OukCMfuUCqIQiktM DwdiIvnt36jHR7nK85BA2zG FWbZtN0MDJhinQ0Wdf7LXFw QIVzuDWpU323e9cgl8hjmpW xoBN5tDndCHQlnpflIjX7MW dxLBLhukznAVz6XUnxHGQmm EX1VKObmDLrV0GxXVXcEW7s ynm1NPK3AZizUPEpHjH8LVT ykXKdJFOsgAoaXNxww580MR O2YlKuYGLacoPfhQhqzU1rE fUgTFU7YGBpICibMShsAHYK B0pgBVE0 CLINICAL HISTORY (test s2jlpPLyDYLxfUG1YaXuBXX code = 3356) eh1yqp6AiqHQfpGGnSKoshQ AoduQezz24hAL1gN49NU5pW BUyReD9OAEkljS5Aut6ZOOu FZSjfJZeH637k3uaj2kbypU brOH2iVriEOFakrhfSsN1VB foPMUdqipxSUm0WCahAUCky ME6FPKafSFhG1XtRFVvPX3a mjk4ZYE2ACqnRJPuEwL7DXS sjOMwFUMwyPteBVwhj180OC R0HxXjZSMpbuEerMfssG4xF bCyKNRVzlDrO5PhAQb2aWAc cGFyfQ== SPECIMEN SOURCE (test c4otgPFzGCHqiOG2OlWnJPN code = 3377) pu6uuz1SgxFVqrEPwSOihhL AdshQhnn24aZS3hU95SC5aL ADdIhT9DJJrmnD4Sgy1NUOd DKItmMEpH255y2kjn5cuepX sqFL9kMcsDDNsfdldHjW8HM vkNVJfzgajBZn8LUizZXKlh WA3EYIigLOoK2DaIYReSV1t eks2YBK5OCbmUTKoVpG5WTI lbOAyVQMxoJeoGGvcn216YS J1XrAmDPNwfcGhvBsluF7tW nMyMCBNaXRyYWwgdmFsdmVc cGFyfQ== GROSS DESCRIPTION r6mvxHFfXNHzoVMuWbHfPGY (test code = 3366) hHTPlo1auOFVpyTJfYfQoRz NcZnRuYmpcdWMxXGRlZmYwe 8dbe317mOXzl7dlCDOlIaE0 dROoRWLgmVKdW018ZQFuQJy yf6vam4EtCYDshYTcj5B2XE OHopdomVc1rDvuB57rs3M7J bpkL2xqAIFoLPIgT8YnVQ9j NGNzDod7ONB9PNB0RQUcADY rL1LrNK1hCQSasUAcIEk1e1 duvGvvJDXwFST9a2jdAVwyv fCsXV6wdu4edVa7b7ovprWg NTPdTRJnnVNRSXLiS0HdqFi fFl8kwIv0lWcwFevqIKD6Uy y3EB9koy14dvl6eVkgWGAqi ihyGxR5KZcnPAGsoehpBZm9 MFxtYXJnbDcyMFxtYXJncjc yMFxtYXJndDcyMFxtYXJnYj ydUHxhNIDdLOL6VZnbg504Q MM3GWonz2azx5lwxSOaZxs3 CUOoMvFwPaveCOoiw0Qfq8u jILLnna4vZJB6rNHsuHzov7 E9tGZwWJXnsHOiyfLnNUWjM sR8NOhuSS6gmz84WSSbSXR8 nk4mmPRvdBblhlBptBZwOFe lW0NzRRKap303DKGeW7CfIX Tkg6B0uvYqOgWyIOEfsHI0r vD7CXUwRCu3lCCyunJ8tiVg rUAeX0ghlX10WaMdgZOkM5B oaB87BfCexJAiG7PksN40Zk WdtCGuV4NzfT06HeQdgXEeH VYqwNRrSb5ckMNkgTCvp0Xz cOKbDVvjE19rl512OXPdkrD mC7idwWPeualuiTTgzoedNY zybqA7TSKfCXXcVTviFFJjL GZzMjBcbGFuZzEwMzNcaGlj rQjpJIexPwRhOEKxANzxD6x cZjBcZnMyMCBBLiAgUmVjZW c1EQXsmC3bLf0hxAJerK8tj FDlLSigTYX8aQFvDMTnKPLq UIMuBW40T6IfrE6bk8VrUWT vq06tWJ2uWLWnwEFpFCtanq FsdmUgbWFzcyIgaXMgYSAxL wIrR08tzJ4juVBkS1VsRSM0 IDAuMyBjbSBpbiBkaWFtZXR qvxG1ED9ryXylwpW4dHTbsU IzHPmyjMVsQBanLLA7Zn1oo ZGiPNLywsV4b4PrAOhyIYYv l8RbzCWdAWIoCprgMIIypWP sKUUdzbVwvApzyP3hPkBjEo MyNFxwbGFpblxmMVxmczIwX LnfbienZEEsJHcrP0dcDcIl ZXUkvKjcLXwbo9JhZHJtAFV cArQpBEEyLSWxf6lbED73SK xwbGFpblxmMFxmczIwXGxhb nzgKEQxQKxcS2adEvQfIEWn aWjxYRbog7WxQUJuSTSoCtA ccGFyfQ== MICROSCOPIC q0fxkNZmWNAowXJ4PgUyVML DESCRIPTION (test code ei6ehd4PfgMInaOJcWVvroJ = 3371) JelwFgzk56iZR3mE48WP8fS ZRuFfF3TFLblbW8Ddr7MEDd KMDqlABcC784f1dlk7xkdwC koMW7zVinSFYnlpibAxW7JU qcKXMsjadsQLz2GZrfCLMxm UK9HOCmeDLrB7LuKUQyLB3t npj3GKY0CJpaHUVsAvQ6AKR brDKnWGWjoOnnGNmle551HE N4WpMfJLVwbcLalEqwcF8oH dUdXFNCSFEhi8ZhLBPcLKAh cn0= SPECIAL STUDIES (test w6usbKUyXJPquAW0ShQuJXN code = 3376) xo9ruv2ChoMVyjSScUPztlU XfoyKntc72gSO9zL34IU5kX RFoQaG4PBNuhoS3Ycr2HETq VDBrrCGnC788CKHxWJGafPu gfxo6qW06WSMfyK5czNPsAL tsihNfFIeujcSvtqViXek8S FH4qGstTXYcpxxcWuK2FWza TEEoajejBEa5NVxgLYOcuKU 2NVAecCMsY8AsSIMhGQ1iic w9LYS4VWlpDIAfXbW9TWOzw YAaHDRrfRwxVUrax757QLZ9 ZuNyWJFxzxUcyXoxkY7gSfK cZnMyMlxjZjEgVGhlIGludG DthXPphFL6vV4fXY2tHYXka PTwB9HkJECjccVdiKEjTRA5 uPFeyLOuFV5vPKmbgFUjt4h gz6AiJ1ytiFrjpCM9RX9gIR TyKPYvIZhpn9ZxnJ4hQreyC UKhS9WjZIVBJ3MRFSXjZASR Uw5ZGjVZOnPzWoKPZc1vZCl NUywgQUZCXHBhclxwYXJkXG HeNWHKy182ue6fAHRwaMBjp pEKwCLfcI0tIRbnLEfrGJut rBGhIHelf0zdNOWvk5o5nGJ nJOQajyAct1ygGSupufGmDT PdaQRyhFFeILOuh80xHJhuj EmrcHkqXFFnh1VgxJqum3Cw XeHmGFiqq1OsO19bcMMmwZB bcOgkGUIgibAsXJWve05ht5 ciEHSaHtW9fJIjpIA0eDGxe BHko1YyuYoyIVFxu8hkPDLh wv3uizfhvSIne1YydM1ylsr eGOgctVPvlkIuCDJdw3b4qX LiTVFgOJXyYNjkfXz6TSLap 086ta5zceW5qUKbWJI3WFvf YWJsZSBhcmUgZXZhbHVhdGV wUKGfwfTfCQRubgEVvO46xi 2tdUG9x8JfTN3tr5UtrJI2W WNobmljYWwgdGVzdGluZyB3 MZLuvMLkUx5apBSxBAN1NNG vtWntsnXQaH4pLPBzYYp8FU SeXrKbRnvolpQIPWEzB6LsU QRxbhNlmfxaPQL2mD7ov2i5 DZjeWi1bQFZnwmwvc5zaikH gcPAjk9GvNJUqdkLtz0WxLF BgaaXcbDQoGQStdrDfzp7xt jYiJISoIOVbW4BmojbzoXny wzR8QYFiKCBdcOVieEfjMGW mZTg5IMauquApv6FqFlFplo SnxVZayeLgGR1nEFSejYUdw rNjQFS6YNJrPHDLPrMuDCWh o3VvOK1dJRMlcOekVZPvqE2 gk8AsTFElp48vZMBiJISZOQ EgaGFzIGRldGVybWluZWQgd XatbCResTLkDYVgBPEbET0d DDAbleCavPDnm5TqbCLbvtV vi3JbwcBkBPZxGOX3WbLTwL DqnEEhrHLjsmJ0p6TkMQSdn pQwpChjoECyeCGlwUUpu7Hc ei7rWQIqo7awxGqaNU0ssFK iZSByZWdhcmRlZCBhcyBpbn Ufg4BiD3L5oE9gORzmc0VcQ c8cTAVlo0ZzgsQeOnQCnDhw SQktMw6eMUFhozbgxMQvQ5R ydGlmaWVkIHVuZGVyIHRoZS JBkKyqyOKcqSJAOENjrmC9i 2K7HKesaRNemkWwYP36ADXh DW3qdVFoqTCyt4XaQDd0KSN jP8kKGJ71NLprUNSrsTJdcL yhxJBfCCCfOYPnuuGclv3hy NcqgNNbr23cuCI5yAP2WPKt cZ0kQ0KgZEruIy0hCHVexpx beERyzSwbXi6pkBWqgO== Gross assessment was [facility] performed at ([facility], code = 2777) Department of Pathology, [address] [place] [address], Technical component [facility] was performed at ([facility], code = 2778) Department of Pathology, [address] [place] [address], Professional component [facility] was performed at ([facility], code = 2779) Department of Pathology, [address] [place] [address], [facility] [id number] 15:29:08 Test Item Value Reference Range Interpretation Comments Case Report (test code Surgical Pathology = 104) Report Case: [id number] Authorizing Provider: Logan Russo MD Collected: 06/18/2021 11:41 AM Ordering Location: [facility] Received: 06/19/2021 03:44 PM PERIOPERATIVE SERVICES Pathologist: Tom Paige MD Specimen: Mass, MITRAL VALVE MASS- for MICROBIOLOGY then pls send to Pathology DIAGNOSIS (test code = [id number] 3220) uZzEwMzNcZnRuYmpcdWMxIH tccnRmMVxlcGljOTYwMVxhb sYkJXRpgHJqA4JqhqkrJJnz JR6jYS0smWnrpWYvnMSpUWO lVrUyh0eng397eIKmk6pdEG TYxswmySs4wIyvR21ee5Z2R zhfV50flPYoSLM7BRNuXYRm sCVnNQBkAUJ9EMZsyKFwG8s xMDFnBB0svcczRTchZBlzXZ HlzZT2IQRymIHeS9FeWWVhZ PczFWJnxgp1AsHxHg9kaHOm eTcyMFxwYXJkXHBsYWluXGZ zXkZyUB1mJEQUXuVtQT8BUR JBTCBWQUxWRSwgREVCUklER X4PQoNjAO9AQMFCWELZRctw cGFyIEZJQlJJTiwgQUNVVEU jOS8VQSIENGXSQ0CLDLBFM7 LGX5KLESWKBmGwX7HAD2tSN CTVREoUNu0fpKTbBPSRYKWY ECnwA3TDLE4UWKHAJqOLZgR HN7OME1PGSR9MA6UZHJFGVs CMAA9VKN3FVAFHXWDAUoBMM IHCBpEVQ7lSA7ibNPtwHUGb S88VRxIFMHOZO94tG4aHYOK ZNAVDR5TKF1vWX2pPXGmkZ0 DGPSbLTqTZRbLNDDIIOS4PV nTXQP0jTPPjfe98TPJ4SpSo m7U9ZXL3HHCuYUIna3xhNUK mbGFuZzEwMzNcZnRuYmpcdW VzGMTcBoFsj7dhk171rYQfs 4yyWMMmGcM4wVNvYPZufDMi I177OSFrZNrjz8qpf4FwCMO cqEAvn6R1AGHAxubtnJl8wJ qzT55ki1N3VhfaD6qvNKXrM JCcG8BjLK2gIOZcVoa3LLA9 UGV8GHGhCASeV2SyBX6wHFX haLLcSJx7j9losTiwMDJjZI O0h9tjJCxjctOzXD1vtl2fy Xh0f9ixxhDbBITcTEJjoBOD ZBMhJ5JauFyeCg5nsKb1jXh wZweoNDS3Tzz3VZ9unv94jt v0hGmhDGFlhcwwDqH4SVzsJ AGnkvxsLQr3PXvgPISpdHO8 NWCbwKUyW1IdVQKqAP1qbft 4JKQ9XYqeWWPrRlJ0MEUvzA MqKTUnmDxqQSeeh234LEL6T jSnQQ7tU2Mxv2M3cL8drKDb LYRbgIDeXgRwOGDvnb0qhFX vWUlfz8GhYYY1pbM4gVDnxW RcXHKoYxN8KKuiTH4ccv94Q AQzPWO0wf7kxLYewCbayaKi sNIjFLbvW0TwKPLsn004KAP vN8RvFKNdw0J7spDfMhFiVH TueHJ5jiV1MGRyII2gdqfbt 7dbRVckKTnlBTZjzwL6twC4 OOYmxZBeT2BqvZ6oWKKjUH9 xhuipm2omSAO8NDshRTMlWF O2HwEsGRKll0Urgbh8YpBbt 2OgaQYkWUorA41er836DMFy amOiK4vyjGSxfqearPKruez dSSdylaM2TCJhPGxukljxEZ KeZGafR1rwInOpADYzsTocH Yzeo0VkIZKfFONsUcJjsNBa HJIzWvi0DUGceDXrQMYmMfM lL2aofkgwYrLWOUYez5txZ8 couTGFoJDuB0WqHKyxmjSlS FrlDSrbBnRgYTIhJL53GYJ3 ETIafs31 CPT Code(s) (test code w0xtnTSpNKYxxHF6TjGrFHA = 3357) zo9bdz5ZqgANqcXKgNMkwaG SywjSlxm91tSH6vE12MP0qC CWdXgK9RRMuarY2Mye3ERCm ILQnuCFlR084e7xub3xannY igGJ0oZqbXNCykgxcUdF9GB kiHJQpaadjRRg9VYmkOWNps KZ0EDRbuHCfM0DlUHHzPO4p wot1LZE4VArfIUNnRmB8AMO jeODzGQEypXirEEsgx180NH N1CiNeZDOgrcXoiYhgsK1fP hOdKXX6SAPaGTegQIwnXOWS W4fvTCI7 CLINICAL HISTORY (test z0wutYSjUNDdlGW5PyEfUPG code = 3356) hl0pwv0HcyWHhdNMtHIdqnG CtsnVrlo58hPY3qC20ZY2hU XUjByN5HKOnpfT5Kkl0REEn WDZemOMwW357r0zek0ihsnB xkIL8aNslEYSturmbTuR6AX weJKVckstjPVf9ECapJPLiu WE9HQRjaZDaZ3BnTPJuMG6d ofx6BGI8FQylSHMfTkI3QGN twBRcQLZscKbyITpbj674FD O6BfTwWMKttpGduEkywD5rF gQuUMEZwhKqC0EwYNt9mQGf cGFyfQ== SPECIMEN SOURCE (test a0nfnYTfTRWkiFJ2NhYnMDY code = 3377) va6ibt8WdwMAcsOKiQUqxyD XnjbNifl09nHA6rY16VC8sP JKgOzP4EXTpeuK5Cbx5NJGu BGAssTMrH686k2kcf5svieH hnKJ4wFzkUCArpjlgMmC6KA rvHDOicmvwUYa7EErmKFOkj JM5OMNqiINcC4DlMINqTB4e jzl5MZP3LBtxDRHoPbN6VON wyLJxTDEmsHlrVCozl252WX L4RwFrDSCopbRdsDlsaE2oD nMyMCBNaXRyYWwgdmFsdmVc cGFyfQ== GROSS DESCRIPTION i8gxiCSdGDSooWWzImEsOUI (test code = 3366) fILWnv5buZHIjeUCfBvPpNp NcZnRuYmpcdWMxXGRlZmYwe 1nwk266eHWsf4ilRYMtMyX5 dGYmMHRbuYVyY404WXRuFKh rn1vzn0AhADNslTYfe6L2VH GIvmeypAt9mJzwR03yp0S1W julP6ekKAZoEVIzR8MyYD7u EOGvKqb6LYT1ZNP3VLUfPIE xK1WxHM1iPKWpkMVtUYo7s6 wtvRcfVDIsKJJ0f5idXXzuh nWzMC3cvr1uvLv1q1qwysKv DLAuGHTqbLMEDEEgZ0OmgCc fJm3siLq0sUygYgaiFAW4Og k9UB8top78zai0xBexSUSsd wxeCbR9TZhjHNWxvihgFBr7 MFxtYXJnbDcyMFxtYXJncjc yMFxtYXJndDcyMFxtYXJnYj bwWZejFLIgXYF8WYwgo196K WL0SSanb6jtz7aqaIMbCsd6 NTStAlLzBrwaVVypz6Jzl8w dXCUjbl4lFZC7qZMijAvni8 T5rBCcVZHcoXRbnlKrGPOhF lN0YRyyVR4bth03DJRfPQM2 bn4ixPFnfZyslpAkwHCvELv iI0RgLVPrv342PQJyB1YpUU Aez7M8ovEhQuJlWFYepFV5i dP2WLIiMQq1xUChekY2xdKh xOOuF2qfcV85SoSwzOJwD3V hqD58HqEtaYMkT7AmrL59Fe ZfpNKkA8FtgU22LmCgeVQiL BVeuOSxFx1laTPahCUdq0Xf jUQkIKflQ58ag893QJFhweQ nO4pjyUHmgyrhxXJzzzkdAB xxcnA2WZQmXPJkYOvrPTIuX GZzMjBcbGFuZzEwMzNcaGlj dYskQWexBeEaQKQlNSnzR3s cZjBcZnMyMCBBLiAgUmVjZW b6OUWmoH5zGr7yrCPumA4ku XNnRGeuNMB6zZZcBFPgRKFv LJBnOJ77H6UdiL7pw9CyNVY te26bOM6xTYJjrBXjJCceww FsdmUgbWFzcyIgaXMgYSAxL zPgG60ueK7ttGBnM3JoKDO7 IDAuMyBjbSBpbiBkaWFtZXR dmgD5WV2cgZqwnhR8oBFdhC UtJWiakFPvNCkkTDW5Tr8zz SFhWBBnaiR4d1AoEHcjUDGo d0MbhXCiRVQsOvplHFFmxGD xZOHvjuWhoFjsdE4yBvLbJc MyNFxwbGFpblxmMVxmczIwX NyhibzcYAPoNJcnK4qlYrVp FSVybXcoTIafs7DvNWTwLEU qLvMxYEFyAMCxi0zmQD42GP xwbGFpblxmMFxmczIwXGxhb kuuUSXbTBfpV8fzZqPbIEAm bAeoTHvrt7ZaAOViAPGpQtU ccGFyfQ== MICROSCOPIC y7zclBRgLCCssZR0CoPxDQB DESCRIPTION (test code jc4sgw5PcnCWmoMVgQJbxjJ = 3371) VvdbTgti41yCP4dB88UF9iL MEnHfX9EITaicP0Byy4AAQa JFAlmMAjB304v1ecs6gyoaR npQU2lFzlDUWicopcTxW4QD heQQTwmyfzLCy5VMslOMMpz IJ2HZAswOUbW7LjAUUtSN3z oxy7RGM5VWbqCPRiPrR8SJA inDYtJRYbbZsgMUpsg486SA D2RyVtZICgehQjxPsmiK6cP yAjRUFNYDBmc0RpOMIaGNUk cn0= SPECIAL STUDIES (test h3clvTDzKHOswNH7OvUzWPT code = 3376) du7xbz0IfeZTakQSwOEimvG ObotDmus41hAD1wM88UB7sY IOdNiJ1YJIpxkH0Soa9QLWg ADDbjKFlK769OMJqPOYyyFa ixtx4gB55GVHpyQ2geUVvOW aftzRlTEjivbBaxwOiRvs5N AO7bDokNAMwqqykNsK3QOhc TLQlyxivDSj0CSofTPNiyVI 9SVApxKDqQ9KtRMGjAH5yxr u4KZD3EEonMXFyUaM0CZPmr PPwYXMehSngXYupd106XSH7 DjGqNYWyvgLmyTqyrC7yUyA cZnMyMlxjZjEgVGhlIGludG MaoTAufAY0pZ3zMX3jQOVra NMmB8ZkRCQhugRjmETiXFM5 qQLvcBMuJX2kFOhlmTHrm3h bw0GjK1mdbQmejIN6MO0vJL CuVXVeLMjnh9WmdN9tDoqrN JVqZ9ZdSCXQS8QUACCpJYOH Gc7UGiNQSpMoVoSDJr7dEOw NUywgQUZCXHBhclxwYXJkXG IfGWWBq282gz2aJNHjjAKma zTPkEMxlO4uFBqaKNvbHFgq iVAmNGkbv1hbHPVes0f6eBZ tCWDskxNwr5wmKHuxpdCmOL PaoSYgeVKnICJah03lRLtee ZryeQnqORPnx7JriYimi5Bb XpNfSWhnx4NvL05vgBDkaVD tpPpyREFcydBaKCBhi80nj2 wcXVKyYpD2dPWuzJM7sAYzu IVbg3IxiKzbDRSkr0waDEGp iz2xbniglDBab5IkrN1ygby zMZevdBNyebAyRIFvm6c1yT JwCCVxDKTgYSyoxOr6GGTrp 070yd9bkiF3cRXiSKA3LSgu YWJsZSBhcmUgZXZhbHVhdGV wTPRewdIcWHHanmRRhE05wc 7jyTJ8b2BaJL2vc5YgyXG8G WNobmljYWwgdGVzdGluZyB3 JTYfpCTvCt4wuSYjBFP0MJC pgCqzyhNDxW6jLRNvFPi9GW IcTzZyVdegmaWIRDSgV6SgR NZesyMkvpujCMT6qA4id3l1 VAfbCp5tPRKfwohlq3sbegH vuFSzh4UpDHGdqvOvl4KxRS AggyEoiFEbOEZrzvLvwq1ob gUfYBPpWUGwT3BnlispgZad muQ7MPDlZOEjyKGpkQcdAND gWTr1JGztjmAhs4XlAtCghk GuoAWvodYmZH9lQGKbqVXqr iPtUTC5CXXzBXCILcOpZTMt n4NlSY0gKYKmjNczMSOdiV9 pt3GzHPFzk09iZLFbBNSXAV EgaGFzIGRldGVybWluZWQgd EfuwQHmyHKqTHYrPRDiGH9l TFTqznOrtZUvt6CxeNTkeeL cc9DsuyNcXVNtFDA1UsMXoY CtgGMspPNhqzS8u7RlMBQxj jQxjTceyGYaiNJdxRAck2Em my1rJWEgp0qzyEzbFR5pfQU iZSByZWdhcmRlZCBhcyBpbn Yum2XnH1E9bY6hXGrcj5WjS w9lLJMlu3MnkjAtFfNTbVlh JJudPg5yMUDawrpfyBFfE0E ydGlmaWVkIHVuZGVyIHRoZS PLiHvtpLDwtSYSFOQemlX9x 1R9ROituQQqkmDhMY52GTAr SF1ljFXugKCgu5IrDXs9SGW rT3cJIV81NTaeZMWesNNzxI irrWKsCSXiQLYrnpRuhe4kv OszcOSmh91xcJQ8fIA9RDGn oM4vC1HsJPpeQa2lWVZyeir lxZFyvFrkOj4yrENwmN== Gross assessment was [facility] performed at ([facility], code = 2777) Department of Pathology, [address] [place] [address], Technical component [facility] was performed at ([facility], code = 2778) Department of Pathology, [address] [place] [id number], Professional component [facility] was performed at ([facility], code = 2779) Department of Pathology, [address] [place] [id number], [facility] [id number] 15:29:08 Test Item Value Reference Range Interpretation Comments Case Report (test code Surgical Pathology = 104) Report Case: [id number] Authorizing Provider: Logan Russo MD Collected: 06/18/2021 11:41 AM Ordering Location: [facility] Received: 06/19/2021 03:44 PM PERIOPERATIVE SERVICES Pathologist: Tom Paige MD Specimen: Mass, MITRAL VALVE MASS- for MICROBIOLOGY then pls send to Pathology DIAGNOSIS (test code = [id number] 3220) uZzEwMzNcZnRuYmpcdWMxIH tccnRmMVxlcGljOTYwMVxhb dOeWYAxeVJqZ2PjttszBNcd DB2pXK7kiVzabRZelKYsHRY hYlMoo7tde415mUWhu3dyKG OLivlvjPz9aAluQ67eu3D0W gqvA81brDSjROE1XMYgWDXj vJHwPLWjFDF0ZXYuuFGnT4b iTXDkAC0mdqjaYNqfNZfpVK PneBW9GVMnwSFnN9KcJGQyM HcsQHLovka6JbYtBi1yoXZu eTcyMFxwYXJkXHBsYWluXGZ dAlXoFY3gGEFTSpXvVA9HVB JBTCBWQUxWRSwgREVCUklER O4BZfHzPJ4CDKMITSVUQmqg cGFyIEZJQlJJTiwgQUNVVEU nII0VBNWUMBJHA9BWSKCDG1 MMO9FUBAQJKdYnB4QNU2xBR BELTVcRDm4nyDJvTYKQQWIJ JQiqZ7HIWD8JINHRXlXSPbJ ZM9VIE9LEPU1TE1YJDEMYTo COVW4GSC8OUQNFUKXSGgPSV MQFBqQIN2xZH2zeVYbiRAFq R35RIoWBXEMKU15mY5yPTKQ ZHMKMO0QTY8gKE1xFOAjsA7 HQRHuVZnPLMeLGJQMQWF3IE dSIYF8fKUGdxc32SKQ4OyAr w3M7OSE2RKYmEKIwt3ubCVW mbGFuZzEwMzNcZnRuYmpcdW GbWWHoHoDuu7jgg709xNFxu 9uzHGEbSiJ5wOUxUDJgaFGg M805OFUjDVuvi9jou1QbJVO wtPGuo5E4UAWCqlznwYw8vH ssH76os5V2NdjgP1ejQRVuK WSlQ3WfVD7pQISkFeu4TIP7 RUD5YFObCQAxG0TeNF4qGBO qdLKkDCp1d2lbnRstAUUbKL K8w6ayQJuhukFmVM4xaa2qe Yi2a2haeeZkWYQzUNGxjFPZ EQQgR4XweDbrMv0xiXx0vNi jLbdfOHG0Lfm2GZ7aiu88ga s3dEzvMGUpruskLyG0NAdrO QXlbbxsRDh6OCjnOMDdvDJ4 IAKyfBLqA4AhXJUlUZ2wseg 7MLB6SNcgCKBjNoE7IKFeyM BqOJZimIxpSFfqr299VWY5A hTcXC2kR4Wjs1H0mN9mgMWo UXMtnGNkThPwEXLwul9ceLO jKOxca2VaLGI8wnL6pKTguW LgCVOzZhU1RLenSD0zqb36L KXwDOP2sb7ovXXkfIakuaGv cHWgKTsxI4NrBLPvl353WII tL0BaKQLbf2G5drYnCyMrUU ZfnOO0twU1FDNmQM3rfedxk 8raCLcgVQuoPQNywoY2vpF3 FADwlALlE7JikG3gCXEjSU0 qwieoi9ivSDT1SOqpCWCwIO T3FsUzNIGfb8Lkyyc4JcBgk 9PlsSKlDMchA04vs009AXOs qrCkO4uceKBcrzotmWOfxoq uIOrsxbS3NXWaOQlfienlRM WtRZorH2pwDiNjBQAqlPuvX Raqg6ScDGBfKMKkWxIuwBNk BJVcBko9QNXhuUCcZGSfRpR wA0tsnqcxPqSOGPJde7lxZ6 ngaQGLeKNuZ3NtLQkhucGlK CdxETvlXjKuKUPdYW45WWY7 PSIrxr42 CPT Code(s) (test code q6fpqZSgYXWodGP5MlGfIZM = 3357) oe1wot1JyjFAywDBmSTxshP QxrbZopn50uMY7tD72CG1uL VTwFsU2WLYoxtO4Zkw9XBJr IMYviTTzX110d8sho8qnumO wrWU5qTyyJYQhqlxaPkU6WY zxUPOzmdktMMs1XRwjIQWbf YU0PMGroTOwR6XcCBUeTP0y odd7WYB8HJfrVXKjXgV8VBL mqHYlWTHrnIbsJCqxr892AD Z4YmWuHYUczpTgiHkrwQ6tR iTzTOI9NBOzONajONdeUBMK O2hoBZO0 CLINICAL HISTORY (test z9wujQKxRYZqrBC9TcNzUNN code = 3356) tz1ltn2CjkZKujUUdINicwC VkwjRmyy42nWN3uF63UL8bX ELtCvH6LRWhllZ3Zbc7GRUq HZQapYXlV400n9iek0yoyaW tkEL3mVqaWQVlxcdiZgW9JA bxZMMtpkmdGAo0VSdrQBXrw EY9PNMedIIkL4PnNYMwGV0q ikg7AIF8DWciDCTzRvB5FLE ruUFsXQEofSnlZSifs580ZN R3PxGwBCMferCryTrtuR8zE uAqZIPEwiAwB9JuKRw1oAPy cGFyfQ== SPECIMEN SOURCE (test f0dpyTTfTSUqwCO3GuQfJFD code = 3377) st5gxc8SliXGvxZJzHIeofT VtlxDypy83qPH6kB66IM5oW MEzTlS8EHKizdO1Ygy0OAMf ODFndZJkV996a4mhe7ekmxD jvTM6yDitDTFcosduIoJ3FM sxFEHnrnteUFg4PKaoMFVxo QP0LGVhmKZmD8OjSXUnYB5n npl2BQO4JPbiGDUoJiY1FUC rhPSiLICjaEreLSvng704DI V6VaCfSMFdapGksImscW9pB nMyMCBNaXRyYWwgdmFsdmVc cGFyfQ== GROSS DESCRIPTION y9vjhOLnZEIrmDEiAhRqBRB (test code = 3366) vDWDwd1xlZLOpjIUmXoQnDc NcZnRuYmpcdWMxXGRlZmYwe 3uep379wDHsj0vmZHJrRoG3 fKYbLXOihEUeR826JVFyDBm hj7yel9BxSKJteAGus9L1FY IEszqnmEk6pZmjO41wr3C8S owvD8dpGNNrMSQxC0YzGI3n JMXyKma0DEN0ZOT9DMWyFWJ fT8PmNI9wXRAglICuZTb2s8 nniKmyMJFaMVB7h4ldZAzaw eDsFM8bbb1arCq1q5dotfNu UJSoYKCocPZJNBGdH9AzsTm qFl0whOv8hLtoDzkyZJA8Lx z2WO3rfy22wvs8mDqyBFKtx yzaNfY1HYrdAIUullbdMJa6 MFxtYXJnbDcyMFxtYXJncjc yMFxtYXJndDcyMFxtYXJnYj hlCYpoPJXsXES7PJmmn696C GG3IDxcm4nps4fxiHOuZzq3 HJOjGvUvKsfmDExxo5Yig8g dDOWrtd4nKRP6pFVvxAtwx6 B0tZSuZJVyjRXtdjKcHDTmJ sM9OWyeOJ6vgj89MQToYEL7 rp5rnZEqnFcdjdAigYHxLXe zY1YeLIIxq579DLNmQ2UsBG Sif9L5azHrSiHbNGWddXV5f bT9EUEbQOi9kTXgtqF2zyDw hWBkS9ldhP32FoHcpSDoU2V rsI65EsSvqGUiZ7NngJ86Kn FswCFqH3EohI22VkUydXYkJ ORjcNLrPu3amRDnoICui9Tg zOGxZOgvZ55bv886ICLwldI qH5mxrAXgaqukgBRrinvhMC qtokI0MNZuLRMgVDcyDSUzE GZzMjBcbGFuZzEwMzNcaGlj vDvpHEfiCmRvPHHsNGzsO0v cZjBcZnMyMCBBLiAgUmVjZW t6EXEisT3gIl4hqMEfvI0ly WRxLMdvUPJ8nXAoHUYnRZFx LOLoEW90B0HhiZ2zn2QgAFK do05wDW7jODLndGCzIAbbtr FsdmUgbWFzcyIgaXMgYSAxL pYdQ60onL6klNKcS7JkNMB6 IDAuMyBjbSBpbiBkaWFtZXR rqmM7BL2ozYlcwrI9gUQraO TgLIwfcYLhKQlrUER4Ku1xu SQbOFWmoiR8v3KrZNkmMDUy e3KhkLSpTRTcRkcpQZOrgEV mYSRcenDadWvriK4eElIrAo MyNFxwbGFpblxmMVxmczIwX BqdtztfIUHpIShoS5juDkQv FLExaEhaRVwwo8BsUHDlEXB lOqWwQJHgQWWfn9kfAC10HW xwbGFpblxmMFxmczIwXGxhb bucDVShTFgtA4vkOpYbQAIp cAeuNSknx3ZxIDNtOUZkWwY ccGFyfQ== MICROSCOPIC z7xgbDKsINQhiOW2NiBnJAA DESCRIPTION (test code wi7pya0DogBJvvJQuPDykuY = 3371) PwcsHgxb86jTZ5aX92WV0nM YAaVkQ9XABcwdM6Bcl4AJUn VCKacBUkR407x9tmh3aysiH qhBW7pPdhLOBrqttsPnB9WL qbOBXxxcvgRYw9FOwcDFMna VC3DZByaVPwY8SwBQQrOD4q aoo4YCG4GEnjAYXoRzR5ECY ftHGwJUQmgKgkDMqhn713WL S2AjRjSTMqdlGurBktoX2fD mAtANNIQUHqw9DuMWQlDMLi cn0= SPECIAL STUDIES (test i4gijTKjLJPdoBZ4WaOxTAT code = 3376) jr9vqu5PdfNUaqVEaDEoncN VakhLqpd19rZV5eI73XB0sZ FLiFsG4WAUxlvY4Adl2VLDc RYNzqWAfH658GFNcEYZbfMv keyx5eX21RMTnuE3ocCXwFS alsbUaQWvvqmRnjlEvRwy6F YI3uYxhIOKvnhvuQnK2KSgs MUDbflmbQDw0JSmqCXFijIY 2NHDwdBUvX4ZtIOWbDC7hnz c3TAD8EKylKVVbNwH4PDNqn QIcZKWggZwjADpha488VBG8 OlBsPBNyudHuxEnbkI7gDbQ cZnMyMlxjZjEgVGhlIGludG MzkUUmjKY4nW3jSV9gGQZyb ZCpH2GeKPOzzmIfmEPkNQR5 lTCyzKPfIF1gZTuwjNUjz4o pb7DrU0jvmVkgpJB5OH2lJI BcXWLiAYavi5OsyR0rQatlF QBfY6FqWFQAZ2AWXRVjAELJ Ad3MCaDCQrRgPiYEZl1dQFe NUywgQUZCXHBhclxwYXJkXG QtVXRIl085bh3nHEFqmJXbq cTXePYdbS8tMMivPDlzDHor sJKbNWvpz4poHIMdg1n0tBI kSJVtxvQha1ddMPmxxnTzVK YebTJgbYGaWANge34pNYpcp AstgXuhDXCzz3MjxAdcl7Wv XwKrHZxie7YpX92tmJQkqOA pzCgxNCJkoqWrWJFuo32xt4 vcZKTsQfP8rEKdnWP4eTLuc IIqo3HcsAzeMLCzz5ptOKJs tf0syolsgZPcy8PalL7srwn pILdheSDaywNiBBYrk8p0gM VoZXLrOENqBCowyVe5IWWen 704py2hytF8nLYaJCR9PQav YWJsZSBhcmUgZXZhbHVhdGV mBCIfhoXvEUUjigFVqH97dt 0mxJM9m1KpJO4wu1CehHA0C WNobmljYWwgdGVzdGluZyB3 QVRizKWyGa8uhCXgPQH8OSQ wzYqzocOGtL5xFZTkQOi6KP MiKoFxXydrstWTZBLiO8CwF CYfxoQuknmvWCT4vF5gl2n8 SMymNv2mAMShrnllo8sxfhT miUPik2WfETPcwoGun6YdPR ItzgDujRJeCOYmetCejz3be fKwYLAnKMExR9KaxvfeeQwu cnD8WPSdPHGeyNAorSynUTO bLIl0VWmrfqZmc6XwQwElyb MulEGxbkUbOU0zIQKgiOKhl bSxIHR2HXOvNMQSJkXuPROf x3MbAH0eNXIveDxkGPBipU4 dn8WiCAZkh88cBMRzOHXXQL EgaGFzIGRldGVybWluZWQgd GfvpVVleLIwKUDqAHQdQK4y NYRjoeClxKRbf7MzbFMzfdJ hi8FrkfIcFKOgYCV8OoQYzT WuhQCppSMutuI6c0BmNZMac rHdsRiibRTgcOMkoAQkr3Du go4mOTTds3pnnFueDQ0unNZ iZSByZWdhcmRlZCBhcyBpbn Hzp9WgF8K7fF7zMGnen1ZqQ z3nBHRsf4OsxuCpQlRIiYuv NVgdEp5iSQBwfykcxNBsU2H ydGlmaWVkIHVuZGVyIHRoZS HMwPmlfNMqqHNOZWUyjjA6p 6E7DNtpuWWsojNvRS52HLLk NA4mvWTnmFQis7RtUQw7NXP rH8yGVW39SZsaOKKpuDRztZ najBLxMGAgXLTgnhTmmc6lj OjqoJHen92oaBU4mTQ9RODi yF0oB0FjMLrlAs2aZWAkvia uuNJbgIuzSg6sfAIvkU== Gross assessment was [facility] performed at ([facility], code = 2777) Department of Pathology, [address] [place], [place] [id number], Technical component [facility] was performed at ([facility], code = 2778) Department of Pathology, [address] [place] [address], Professional component [facility] was performed at ([facility], code = 2779) Department of Pathology, [address] [place] [address], [facility] [id number] 15:29:08 Test Item Value Reference Range Interpretation Comments Case Report (test code Surgical Pathology = 104) Report Case: [id number] Authorizing Provider: Logan Russo MD Collected: 06/18/2021 11:41 AM Ordering Location: [facility] Received: 06/19/2021 03:44 PM PERIOPERATIVE SERVICES Pathologist: Tom Paige MD Specimen: Mass, MITRAL VALVE MASS- for MICROBIOLOGY then pls send to Pathology DIAGNOSIS (test code = [id number] 3220) uZzEwMzNcZnRuYmpcdWMxIH tccnRmMVxlcGljOTYwMVxhb nQiARLpwVPpZ3DsdawpUSyd KN5xHT7jrWrmoFTljJAnDYZ pThVks2qlg217eNRyn4byVT DJqkmvdQk8lJhyM29tx4J1U aljM36ieDJoUCH0QWCsWEYj kAOrOCEtQKW9ZCYkmSIkA9z xXCZhZO9nstfeIWboSLtnQN AxkTD8PXCstFZgA8VrWYScE KoxXJFoweb4HiVkQu9ltASx eTcyMFxwYXJkXHBsYWluXGZ vRcBqBA0sGFYABoNwKX6XEL JBTCBWQUxWRSwgREVCUklER M9PWbMdXV6KFLJWJEREGtse cGFyIEZJQlJJTiwgQUNVVEU iRP7QSKNJKJVLB3POCLWIR7 QZD7NWHLGYCmEcY9IRA2vCP DKLPAkVAp0laMZeVYYAPJRL LArxB0ZHHL8DDCGMYvVQMyQ OG0YIV9TDEF6FK5UKUPBXWn SCGO4VAY6SVJWPKOTSLiTIH CIZXpRLH5cBG1qxHQjyNGRt T73SUpJSHCSIW64iJ4fPOJA VKEBOC6OJW5pFM6kKWEmrN7 JDGMgHTiDSLiMYGPOKYN6MA yHQPV5sNGZpaa58UEU9CiWa o5B7XNT5QOPjMEYbp6qdJAC mbGFuZzEwMzNcZnRuYmpcdW LtSTBmJdHmo6qdj658fYTxg 0wkMNNiJuF8lWNmKZFdkUBq E269LIVqUSdew3cbc9GhHFH ppAPac0C9NIBXdrgwyCk8yM kgU24fz9K2SncfM5paZAOfH NJxG3VzSR5pTXJxPqm5XOL5 QKG4SFRtUCRxV7VtJG8oFZY mcXLjUTl5c8rewBqwPJJyTL V4r7ytWOhqnhUoLH3mst6rx Ld8u1yfjlVsJXMjBMXfcXTE WIViE0IrgYmwDt3ojTn8yRw tFhoxZFY2Iqu2DS3bie03ag h8hYsuSFViipxiEbX9CDzoK DHxljrjTOo2NLxfKZKptME7 FDQwfELmN2DmQVKqRI5hjon 4QAA3UQlxRVTtGtO2DEBjuF NpZZAhgXkaBQvqj137AFE8Y oKrPA9cX6Ckp0L4fX6tpFEj OMGvgYOhVtOzYYUswq7vlSH kOJwzk4JqLOE0kvZ7vDOndD TvCNPdQnT4GAxbUD2rrn01J BKvKLM2yn1ebHVjhOeywlRv xTXoZPfgA8UfPXNbx914HVV sW7DdZMZgy2P5rnHkBzYhKX IyoOO2enL6EKJfBA4wsiurk 5djLAtwEOhlDNKdmxE7oxH7 BRGabUGwZ9VcoJ9nEPSzOR9 qspqwk6yyLLF6EXahWYDsKO X2QqBlVLLdw4Qgxys1IqTzx 7ZrgTVdXVibN66tf820VDFl ebUhK5eajTDymphufBQqgue tUDyhhsM3QPMqMMlirrucPE QyXFkhR3hmOlZyJXWphKkzC Cepm3LsRUUtSCJuPtJhfXHj AKViUxw6KHQqgLVcDPOlOnL eX3dsyctjYiBNREVkc1prD1 uavDGNaMUoQ7MaXEbbwiGzM TdgATgbHjOsTJCfWO45UDH6 GLHvzk62 CPT Code(s) (test code e8psbHYgDAIwoUJ5MvAtVZA = 3357) jb5azt0RxwOBaqVKvSGrdmB TqxnUxdx70qHZ5kD05QJ7dM PXuRxC0QEDtniU0Kpd6TNOj GSLukJGuE026k6iij6nadiI ftPZ2cUizVBYrukknEaS2KI fmCNNmmjtuHAz6ZKsrEERar FY8MBMreTPmA2HaGTAxNM0y fzp9DQS7QFyzHZZqWcT0NFI tsTIbEXJkwQjuWSppi888IW S1DjQuGPBbgoLngBgpgJ7zA lPwXMV8TFJwIQjkNAntZWXO M3psPHE4 CLINICAL HISTORY (test t3hctENvCKWtwJN4ZdImLWD code = 3356) ps9tdz7ClqJIsbPZaIJefsA XjvbMteg44dLG4xU52XP9aB PYgPoO2IUQpquG8Aow7DSLi WUYiyPHjT185m9rta6lwosQ tlBQ3bDgoRUMpyxwmFgR5CH tjDFIrwnbgPVq7FKomXMJhz UN4ZAQkrERgT8GxTGRbIL5c zsk5ZRM8AXdxBSGiElI8LFJ ytNPlKCBkdPhmVApwa274MR Z4VaVmBFNyzcVqaQmecR7wD tByAIDLhxEcX0TuUOm5cAFm cGFyfQ== SPECIMEN SOURCE (test m1rafMAwRZUdqVL0IxGgNLM code = 3377) bw9xra2EklBNsqUZcUMdnqI RmttDigg79jDE6lO45DA3nY FGfMgT7FGDeusS4Oep3TOWv UEUxcQOnR214a3mjv8hlveC fnFR2sNliBWGgoqivHhQ2AY jiGXExydrlEMc8LKuxCPAvh KY8RGAkkJIgC5RpYCAmAN4s ggd6HIZ1QPbeQVZmFiJ0MAI oqKUsDJCyzCmjKDota252IL W7UaVdPXGkhvAgsTxhtU8kP nMyMCBNaXRyYWwgdmFsdmVc cGFyfQ== GROSS DESCRIPTION h1mdoFNdEZPvnHUwRxEzHJZ (test code = 3366) wWFSmm1awWMBbpKVxNyIvWv NcZnRuYmpcdWMxXGRlZmYwe 1yhq385rGPzs7faBLWeVnL4 yFScXMMuaTVeI256HXZbZYw zj5dtb4EcXKOeoOSra3O8FC FTcnnhiBe7rQulM78po6A6T siiO0jgQXGdWETvY0NqWG8i BCOmWrk5DDF7VSW0KOXuRUT sI7ZkBU6tKIVegMRcHVi4z9 zbiNobVBCaQJT7v2qzIAuvd xWwQE0ept3cjPl4a2eiafMe VREeYGKpyTMKPXHvB5ZnyLv vQw3xnCp8vDwuVpymWXS1Eb p4GJ3fvp41hvu1zQbeLMUwf oirAqB5DHqdENSapcutBJn8 MFxtYXJnbDcyMFxtYXJncjc yMFxtYXJndDcyMFxtYXJnYj iuBApzLHYrTZZ5ZGhbn908B BP9HZgue5kig4fjiPEkMon4 NUGxWhFyCeglMVvav6Ztq1k oYQExqs4oZIB5aVIyjSldj0 W7vYMyRNDopGEidvEmAHLtS jI4ORbiDY0mwg43EOWyUBC9 xy1wfNLwgLwoboCqsJEzHDg sE9EpDPKmu882FLVhN6IcTT Wzh4C7blNxUyDhTJDuiOA1q dJ8VZXzBVj7lNZmwzA0bnDf bUFfU5mxpQ98QpBkyPGwP0H mlY49EwHxrURcO7RcqC47Tm IiuENeQ4PjyK87ThSrtZBtL TYpjKDwJx8vrPIgfIIju4Pi rMIqFOzmM49bn453KWKbjyR sU9bmvRZawysllULiseuoAY mzbaH7STKrHSYxYBuyAFSkD GZzMjBcbGFuZzEwMzNcaGlj yThsDLslQxTmTMKgFSuoK7y cZjBcZnMyMCBBLiAgUmVjZW v2DKEjgS6rNu7oiQMbdT2av MClLRiwPVS1lAZlONAlNHDy XTIxDI42F5PepO9we8LyDNH av12kLQ2vGFTwjRXgPQzqbk FsdmUgbWFzcyIgaXMgYSAxL qVoW46vgY8zmGJfJ0DdMHS1 IDAuMyBjbSBpbiBkaWFtZXR kxoS0GF0neXtvmqX0jUPooP RaLHptnHKzNIuvHSG5Jq9tx QXsKIWrpdX1y9DhYUlaLUEv f1YbqTVyIQBnMipgKVZoiSW cJWKiglPltMfnvQ3lQsNyDy MyNFxwbGFpblxmMVxmczIwX WiwlnurCZAqHWlsH5srItVw TYMfxVniXMsxb6CjWCUaUAT sAqMiJQDyJYTii1byYF16FO xwbGFpblxmMFxmczIwXGxhb cudDEUoAPtqB1xnPbPvXCKz mKxuPRfof4NhYQSxPDPpJiM ccGFyfQ== MICROSCOPIC m5udoPCtCQKlqYH5WfTjKQP DESCRIPTION (test code pu9rwl4AffEYgsQWzXHecaG = 3371) ZycuCrhh24nMK7sS12QP0rR FUpBeH6MKLpedB9Jea2PMCh ZFGnvZNvN299c7ool6wqeyP rrYS9yFxwGBRahoroYpG4YX jeSPDppgizTQu2SKuxCTByp IK0YGTciBYkZ3LtHUJcVD6y qdc2XSL9GEkfERMoFgD3LLF geWOoIRZabApwLVqvj143QR D3VrUdMLIajvCeeRgezW1pD lGqUJFRXGGvh3BzJAPbYPSf cn0= SPECIAL STUDIES (test q2vduPIpTXGibMK7LuPnFPI code = 3376) nw1loq9XehABzeOWaRMirdP WixkQlue51xBG6aU45MO6qV QSwIpX7YEAhiaS7Riz4EUDh BKLkfSMkF282RVIlNZRtvJl aikx2jX29FFYugG4tcDGhUE cppsIqFUjqjuHhsqDvEjf5C YG4rNxwLOVbguuvPjI9SHuv YFKszotvQJh6CAzuVWDvcTQ 5SKMnmVVzM5OzVSDbHS7dfe b9UHA0VTufDOMyGdJ1YYEwi FHlLGTshVmcYToqy268CJX5 JyOlLEOtjpFdqHwkwZ0cFzP cZnMyMlxjZjEgVGhlIGludG XkhFBjpLN9sD3bLE8jZENrm VFoH7XeAFHgeeQyfHMxRBM2 zISsiYZmKL7cQWnehIRkc8b bu7KtN8olvOyajOS4YH1yDF OsIVUdTPyfw1YauY0oApcvW OSdD7IfBMWBP3LHRGRmUHDY Qh3ZSzPLXmOnOyGIYg0yRFn NUywgQUZCXHBhclxwYXJkXG UpCSASo714zl6fUATauXBas wZTeACwpF8rSHuoAAuxMSek iAFoGXpaa3wiSHAuy2l0dOM lPGVtbuWci6sgZVdmvlSzHI VqtDTquWHqJQWbo90vOGzpc KvdkDmlVCOft0IdfDtlg5Eq GjAoLWjtr5AdM37dtBPwsOM dlPceIOTwbaYnBWCqp88qh4 taBNOyYuV1mXTcbZG4fGQcy ZVci3RfpDnxHZLwj8rqKLPv wf2tqfxqvHPbt1DdoP0fzoh pVSbdyWNirwAvKREzt9y3sK HzWCKmAFAxHYwasBs2BCJat 965rn5uhgS2kXNlRUC8APuz YWJsZSBhcmUgZXZhbHVhdGV jUXWgdpYaJQIzdvGVuU66oc 2bsQY4i3GzHR5ya6PsmZR9S WNobmljYWwgdGVzdGluZyB3 XTQkmQIkFa2zaQTcNVN6NQY joVgqovEYsQ2lAIKjJOa8LU QyBhFnQujvokUIRUVnV0TtC QYyicIojageMUI5vP2ye8r6 QEakQp3mAVQbxwuxs5wyofF tpNSzj9BmCIEkaiFkt5VvHI YbswMuwLFcHQOxneIqlb1ch jJzOGVfKAYkJ6RowumofDzb iuB3SWHrJDElgZIfaSgvBRO bLKf4WQhpojErw2IoYeCrny PkaGKhjsUzND9oJNOaeOUqt fOuGMS5CUSzXTYQOnGxQHEp q2RtSN8oJTUwjNivOALdnD5 cy7KlZXKfg34xXFUyKZUKCX EgaGFzIGRldGVybWluZWQgd CfmtNVeqJIuTQWbKDQmOC1z PDKrtlStzCSui1HmjVTyftT qx1BhmbEmMMOxOJQ4MlKZnV CqjVRphUKqopU3l9OkXIDvn rUbbIezyBOqoCHkoDVdr6Lp py7xKABji9dxrWjfFV9qgCM iZSByZWdhcmRlZCBhcyBpbn Run7GmP3F0sK4yVCnen3ZfX x2yODZqw7IdfzIuRkBHmXdj TKriQw4xRVUybxxsyIWnP9S ydGlmaWVkIHVuZGVyIHRoZS MCnIvkyPVlnQJDJVZzpmU3b 5M1DCspxWOmyyIbKU62HXWc RW1xvEHomSLhw7TaBFn0OHE jD2kAGC81QHufDMKxySUscO kcaZExHQZtQMSvsnRuga4vp XgpoLOvw57cmCU7oVW7KHGp bZ6uS3JaWBgmGv7fSVXwtfd eyYSxhYfyYh6lhTPjhV== Gross assessment was [facility] performed at ([facility], code = 2777) Department of Pathology, [address] [place] [address], Technical component [facility] was performed at ([facility], code = 2778) Department of Pathology, [address] [place] [address], Professional component [facility] was performed at ([facility], code = 2779) Department of Pathology, [address] [place] [address], [facility] [id number] 15:29:08 Test Item Value Reference Range Interpretation Comments Case Report (test code Surgical Pathology = 104) Report Case: [id number] Authorizing Provider: Logan Russo MD Collected: 06/18/2021 11:41 AM Ordering Location: [facility] Received: 06/19/2021 03:44 PM PERIOPERATIVE SERVICES Pathologist: Tom Paige MD Specimen: Mass, MITRAL VALVE MASS- for MICROBIOLOGY then pls send to Pathology DIAGNOSIS (test code = [id number] 3220) uZzEwMzNcZnRuYmpcdWMxIH tccnRmMVxlcGljOTYwMVxhb hCmKXMhrCFhN6PdnclyLZng TU4iCB5wrJweyQPsvIXdRQF hWoZhu0ejx042lNObc8ntST SLeisegGm2wPljT92po7L3G lvxM02hoYExOIZ3VPWgZLZu vLPhMLQsBAF4YNNnrGVvP4c yMHSzJY8tbvdkUUfoGXhtMT GpbGY7PSDftSJzL2XaKLWiW QkcLIHogar2YbQfLd2tgJRl eTcyMFxwYXJkXHBsYWluXGZ nCtLfOX6uWNXPOpEvBK9KSZ JBTCBWQUxWRSwgREVCUklER P7ZBmCyPU5TVXNDEHQGJlaq cGFyIEZJQlJJTiwgQUNVVEU tPL7PPWLARLJEI2FOCMEBI8 GOC5AXSARUDlWmL9FAH3dYO EDGKPlXOm9xjSXhOGLEQQBW HKdgJ6MBMW5CCHGAIdMUXpK ZZ5IVU0VQJE2AZ1OCBQUAZm FWNY5LKL5ZRSRSVAQMCrARB XNEZuLTY3mYH3lxCGlqPISi R52WHrKLHJFAC60oC7aAAMS MQYRDN8MHX5kYF2nJVMtvC6 UOWYtGOmGPLvOIMAICBD5NO pNEIV4hVKQmai98DBK3JkOr q0T4HMN7ZQNfZESqs3wdIKD mbGFuZzEwMzNcZnRuYmpcdW NnWPSmFuSdc0cig294mBUkz 2wuWCMwCzR3pZRnPQGdhKWs P745YFXxXYspm7qdv2MoUXX omGLio5E4YWLRtchrdDc9gQ qgM32fc5B9XpfvF7rbBQOwX DQqH6CdKG7nWJEwJsr6WCU0 RKA0EJIqXZYiG3MxFR5yPLU uyXDpCSi9a7jaaDtuLJBqQA D8c2hvHMgpwoYqIL2okq8rz Up4g3isusPvBIDdHVBhtQUT KUKpH2QziPvoWs9vjNa9yOu hRqgqJZE1Tzb3HG8lca44pq g4vTtsEROrtkwyDoB1QGloR CGmnmohPJf1TZfdCZIxtZF0 HESpgCAoP4HoWMKwRG1ozsc 9FTZ8PEgyPKCuVpE4LYAogV UyJQXniTbhPEnfz034JMD9L aAsDB4tN3Cdr9Q6bQ0kpCMh SNYhxWNlGxPaEUChtu6ejNR mNVorx7HtIOH0voD9vUIdlK NzDZQzYoO9MFriTZ9tdy71J BXhSHI1xq0ehPJcaHtfjwKe aVFwRRsrN6AqVWDaq889YTI pP6QmZYMsi9L5rzYpKeHtRB HabFP1qsR5PMOwJR6xiwxcl 6acKLsmJEbrTDLymlR5qpN1 FFIlwGVeR3ClaK5hWFFoVK0 fcdqdc1jkYPP5DLnfDKExEA W2CeWzWDYma7Aubgs2RxIzk 0FvpMZzDKmwU69tr465DQSf oaOnC4cnfCCjixkezATgwpf nCTfjdxR7ZOQtOQbeytfoIE FwOQixB1zfSwWzVXGbuHdeD Rtic8ZiFYOmDDRvTxCbgTOe QUPwBey1RIKwrRYyANLfBkB tX1qrtmspPrATTNGlw1ggU2 suwEWIgTQcC1BnOFbgpjXhC CwvWCjbUcZbLRHaOR31KPG8 KDEquj82 CPT Code(s) (test code k2gscIRsQTXueEC2UfKkBPK = 3357) cv2lnl1VziLPutZAkWFapwM OkrxPajp88vPI3nB03UH7wF HOoFcC9SHVrohL5Hst5FBZx SMVprEKzI503g1khy0oelnL srMI6rCtqOXYuybqtOcT2MR beSFUptxtrMIn4XIhsNXOwn YI6SMCxcPBvY7DcLQRcUJ2o uue0OPK1ASjwQFFzCkO6OAR yjRKrDUWaiIsdARcpo793EH W5AoFiPXOlsuNtoQwcyO5wD iEoJDR0DPQxEChuFCyiRQXJ I4djDFE3 CLINICAL HISTORY (test z5heyRLdXOOqnSF9OyRoVMH code = 3356) eo3kfl2ZunPFvuFRvLTnuoK CeicQmzi82hOF9hD02LL5zF FPbOfS6MKPkkyE9Bug6DVKf FGAsbAKsL340g5kkb0trmqA wlAL8kTvwGKBjtdimFqO3HN pmJFSjmdpmFQv8XNtzHXAol ZE3QDNakOOyL0HqKZIaGB9i taj3YAG1VWpzZZLzBgH1WCN neUIbSVLasBesGLdzs727PA G0KpQgUBVlzrHhmByxyB5tJ bVyYFKJiwAuE5YsKMt6xQJf cGFyfQ== SPECIMEN SOURCE (test z5tjaOAtFBPvlLW1NbSqWBO code = 3377) lf2sfa2MuqAEpgGDhHBjnwM DljfYwdz02nFO6hD93WZ1dT IUpVtP4FUQjuyW3Tvh5PIEw TTPbrFHuN444r3ztw0mxceT ohJF0zGqnTZFqoprfKoM8LG dgGDVmguxzUSl7EStaOLImm FY3HFXpbCMrC0HxMNYsWF4b har0WNH2QUlkNXIlMbM2LMF pgLAkLSGddLydZBcxw023UI F9CoNbUCTltaHlkEnazQ8wY nMyMCBNaXRyYWwgdmFsdmVc cGFyfQ== GROSS DESCRIPTION n6mtbKGiEIKuyNBbLfMxZHG (test code = 3366) wFVTah4ksQKEecZJeWoOlOp NcZnRuYmpcdWMxXGRlZmYwe 6lyp415hOLkm5jeIHQpIxB8 uVJhQGSgjGAcI175HJJmAEc cj8fio1JdNDCjtDLev6C8PW CEepxgfHh5yFceZ17um9I2J ovmE1ehSXVhOLMoK4EfUQ2p QDAfAlx0JON3QVN2RSKlZQG vJ2AdTI1uKIQsdKMwOXt8a2 mmsZboFQWqWOT0d9vxWWgtw bCkSB1naz5emPz2l1uvjpAd YITyWFYawDNNJQGsL9PrrQf aFe3olKp5hBfiNrecWSC1Mr p3DJ2xjt28zib7fUwxLPFbw mosCoF2AAtmLTZpokzfSVw0 MFxtYXJnbDcyMFxtYXJncjc yMFxtYXJndDcyMFxtYXJnYj fzFCjjKOIcFQJ7SBnql309M CH9CIrtg3var3uwjBEkUqx1 ODOsPiVgLslgXWdqq4Tpu9s sMMEcix9hPUW4zEKhrCczf3 S5bJIcWTMbzPDhzkPaTTGgE jS8HZajGF6ygh03SIHdAUU3 qq2suTZrgJskqsKsiMFeTLl bF4CuHYVep364VEHnN4YqMB Agb0F7kxJrIzYuNOXzdUK5v mQ4PLGuUJh2nVOwarN8hsYi kYGcM4uljS98BqEwyJPgK6M pbW69CtHmpSSsN7YebE47Qe IroOVrG5AlaP11IeGyzGIjX OZwvBIkEu0wuQDwoGNfm4Fh bNOyTDbyN96yw569FHYwowP pX4qfkEAvzlkmaEKgpellCN cajaK6RILsFFQfDBzgCNTeN GZzMjBcbGFuZzEwMzNcaGlj rJtyEAlePwQlMRShMWerE6r cZjBcZnMyMCBBLiAgUmVjZW g6BSWavR2nEv7enVJsmX8uc QVwRHdyVAI8eVAsMIPcTKAh AIVtPJ42U1OcxJ3wq9BqZMB wx04vYP0xYCEkhNXxKVvmak FsdmUgbWFzcyIgaXMgYSAxL qCkP19trK4gvFJhL8OqUZM0 IDAuMyBjbSBpbiBkaWFtZXR iriV5HU6lkMraawM8wAFmjN ThNRzbvCCyUYmsYJQ2Si0an MOuLBOzpcP1j4EzYHeqTMRs o0FscORlNEOsHlhbUXByzVS dWTTysfRhcGtdpW2gVuNdLh MyNFxwbGFpblxmMVxmczIwX ZeqbtgvURVfWXhjL8naCmZr ATYizWpfUCcmz7OxTBHaZUU aFyOdICTsOWUlw9xqHX57QF xwbGFpblxmMFxmczIwXGxhb jfaYONrMLinU6zpGxUyVTBm eIdcNXoye9YrPYSyIMIrChT ccGFyfQ== MICROSCOPIC y7qauVDfQUUqoKF0AaPbFJV DESCRIPTION (test code km1eiu9LjeUXhgIQtKJvhuA = 3371) ExboZrtl87yJU3qK29FL8cV OTsRgC6PINcwzL5Yox4HWWd TZLruHYuB097m3zis5euxxF svTY4aTwxOAEutkznFgG8KH niGGHjeyoyXHm4QEibNCVdx QB8MZYfbYFgN7HdGHZiLF4i mez6UWZ2YTfhIMVpEmP9JVC uePCqIYRohUicHDnuq136SP X5JpRmSTPobaVxjJqvbI3dT nIiIGVGMVKlm3CeYEMrYPAs cn0= SPECIAL STUDIES (test u4tzzHQmXVGsrNY5NhYaRWR code = 3376) vl0tto7JmkUNdoMRnQGvtmH GssdYcgl92mKD8nO38VA5eD MTbQsB5SFQhhmN3Wlw6LPNu MTSijBNqZ286SRAqGGZqnUj dtut4pD61AUTkrU1cfKBoWU viqcNgSTabkjGwiqMtEwl7O TH3jJmmRCSyhcqxZcZ7ADtf YTMtpmmrMWi6NHxwSDOlvUV 1TLHlwJKjE9SzUSEyUG9ohm j6CUK9TDmyKMEsTcP7MIBam SSvTKDdnIiyWQdai908GTF3 NqUgDYPbzmQlqGnwrR2bDrA cZnMyMlxjZjEgVGhlIGludG IztTAvlBQ8iA5tCN6fIQSje COjN0CpLXYehvHmkNJnDVR9 wKVroERqEH0nQJfsxRPau0j vc4LuR4uzbHihlJP8VX2bQM YmBYXrEYsxi2FbdG7eCrutJ AQjO0ZyZGIPA8FBDJQgMYEA Qz4UWaEKRpVrUgMNBd7kLZy NUywgQUZCXHBhclxwYXJkXG XrMYLDw885js4bJPCmeGKtk mWKxKAmkB3iAFexGWqlAYhp jRXsXBllt9eqLUBjx9j7eFE jHOFhxiGsc3yxJBgwahKjRB UgcRAdoKOrBRHbm11bWBnej ZzppWbkMKLae2SsfOjpx7Oh DxGkAGymp2ItE25efTCdaKO xbJgvNXKethIzAQRpz86vc5 epKEHgRkX1gVSxtCG7uHYas YTox9XrzYzwAAJlj0eaHKAc ya0jkuybfASmw1ZlbA4uirc wQQqdpMZwogZxIALkj0v4hK TzZRNyFCBvENrkyLt0XPLbr 786ub8qpcG6nEFqRRE8TKiw YWJsZSBhcmUgZXZhbHVhdGV oVHQbviRbZJBqvoCAfK18kd 4gaWB7f1ZpWC5cv9QbmXX1H WNobmljYWwgdGVzdGluZyB3 EEUnfZGmYg5gqANhAUW0VIJ xtIdjwjHXrB4vQABiFPb7OC AnCrZvZwacykFVPKCxZ2EoK URwexQduvssNSW5bE3ip5s6 CSnnBh2iIZOawnqho1hncbL mnLMze6NaCXKwvcAzo0CeFP WbtmHsaDRpQTLyjyIhot3dm gZqDVJfFQDfL0CplqsswIxi nrP1VCDyDNHchFHlsOpsHHQ vTVb7GImcjkWig0OqOpXknf DngGEbzjVwMR4rTFAtlJIrt zTwMTS1QHMpSASXLsSzXVLk r7WrGA9pYJSszLfhWMIeeC2 tc9YfEXEvs21sNQBuQYORDC EgaGFzIGRldGVybWluZWQgd UkfhTPqqUKfTRLpIAGiBZ4q KLIcipQgvIItz2XjvEAthoD re3LzqzWaRUBcVRT8HsMXhW IfrHGctPIyhiW2v4BiZJEym eNghWmvdQSudKSfuKHec2Mx lm5uYNGpk9odaBtzPX1mjOX iZSByZWdhcmRlZCBhcyBpbn Cja6VfL7P9nO5gWEjar1CqM w3rWPZem4PylrMhXoWJzFpd DHxsJm2cFKRvmhmykGHjG3O ydGlmaWVkIHVuZGVyIHRoZS GJiOtfmSXypGTMYIWhbrF6v 0L0MMqipNRibrWrCH74CCZd BG9ciYHgzXBgn1LtCEu8QRZ uN3tSTX95YHgvULGivEUndN ugqEYtSKKcZMSyntRgfa4un GdbzTYny71yaKJ1dYI5CAMc xI1aE4PqSNryBn3vYXWitnk iiYZiiYtiBo4xdUYgzL== Gross assessment was [facility] performed at ([facility], code = 2777) Department of Pathology, [address] [place] [address], Technical component [facility] was performed at ([facility], code = 2778) Department of Pathology, [address] [place] [address], Professional component [facility] was performed at ([facility], code = 2779) Department of Pathology, [address] [place] [address], [facility] [id number] 15:29:08 Test Item Value Reference Range Interpretation Comments Case Report (test code Surgical Pathology = 104) Report Case: [id number] Authorizing Provider: Logan Russo MD Collected: 06/18/2021 11:41 AM Ordering Location: [facility] Received: 06/19/2021 03:44 PM PERIOPERATIVE SERVICES Pathologist: Tom Paige MD Specimen: Mass, MITRAL VALVE MASS- for MICROBIOLOGY then pls send to Pathology DIAGNOSIS (test code = [id number] 3220) uZzEwMzNcZnRuYmpcdWMxIH tccnRmMVxlcGljOTYwMVxhb rMzAWXnwBKwT9HhfbrxHZzt QC4qEA1ajErmbFTqpOCnLQE nMrZpl6pmk513aXOgd8qxDC GKjaywjLh1gTxkJ15hv1R0U vfmP19ngXLyLCF4TNIcYSYy jSDyJZVtPIZ1AIEopCAfC3u qSRPkVJ3gtlivVUzbUPvbDJ QfrKS6UWObqLRtW9ZgOZSkM SpdUHPiopo9KuHxLg1piCOd eTcyMFxwYXJkXHBsYWluXGZ rUrRiSS7tLMROXeBcIQ5YSF JBTCBWQUxWRSwgREVCUklER M8XLtGcJU7EQDQQWDMCCloj cGFyIEZJQlJJTiwgQUNVVEU mPQ7SOLLXQQSWE1ZPKNORP0 OMW5QDKCXVPvUsF2MQN2rUV OEBERySKe4gfSYdKBTHFCWZ KMdrH3JRZD0ANGQZXtLLSlD FH6QDM3SNJS8VN5SGTBWPLk ZLOU6FRT8ZIQDTCBTODyDBA WWRWaOVM1eTG4hwRGfzBIYx N79AGzOBKTJHL27qZ8uMDHO DXRMVC2SYQ9uDQ0sOGGsmH7 XZNMaJDmPKZnNFLUASPT7KG dQDJO0bKUQteb61AII9SnIa j4Z4BBJ5EXJmCNYtd8qyCDD mbGFuZzEwMzNcZnRuYmpcdW MnSUQyZqFwv4gvb987lLHcz 6ofEVIiHmC4gMZcGGXfrOTt Q168JWGqFAgty4bbh4LoORW dvAAie6G6KCGRwcfdlCb7nD nuG29nj4L5IdblL1fcMGEwL YFqN3QyHO9mFYHtOaw1EOH5 XMG8YAFkUFFdC2KnKL2vSVY xhDHnLZi5f5thfFyxNSEvEU K4c2giCAnooaAfNF7gxa0si Pz7m5zhnqYnADMdGBXbaIKX APDcW0CazUpuTn7ooMr1nPl wJhkgYFZ5Ndr7HU7qex12lx i5aMudVJIceuaoMkA1ATgqT DBbcajbNNp0FSjhSWJeaSD8 VHVqyXJtJ1MkMASxFM0qicy 9PYX6JPmwDUDrJkB9CNXruP CaAGMmuLxjGRgqr965RGP7R rUtYZ3rO1Bfd9T0bI5cuNIf HQSzuBEvAqWhNPEkhe7qrHZ aLTrrf5AxILA6llD8wOGgpW CsRJQdXsI7GAweFQ5xod25O WDsLDH5ty8iiPVheNzkntDn lCGvSQyjY3AqQFZxt658VUV fZ1XlNINjp2R0raGgUiBcYI XceXS5sxL5DKJkSW7iousao 1csYFujTTecFWEjxyU8ecI6 WLPizDMlC3JpbK6qFVPgGC6 scpbtm6agXPS3VVrpXIShTJ I0DxZmJOQcl5Sisjj2ZwIir 0WxxMCtSQqiD17ck599DZWu ihExS9kodTKsabxosCPsyei dNMcypdR8VRIuTQipmhmxIH ZhKRzkO3vsVqVjPYHfjTepX Ixba9TvXTHpZXSkIjTvuMDa JLLlVmq7OKOczUHwPVXuLnY zE9mqdtrnGrZLRFCyn4msP6 ppmKMXrNAbP9LcJQebskXnV YmiPBwnUwSwGWJzFR09HSO8 IKHaus16 CPT Code(s) (test code v8zsfZRcVNUanHR8UbUcVEH = 3357) js3vfe6VtnGDguQFgEHiilP ZkysCeeq77kMT5wD33GV8pB LRzWzF4BVOskfC0Jpl6WHBm EWPzcNCoL227e0bqp9vtfuN ifZW2wZiqHKHvmvrrIpI3GW thXBYilwnbZVd3MNjjIBVjg ZM4HOPhbPUcN4XoWQJqQF3d yuv2QVT5WOxgXLRdAjH6MUD uxVBcIMSbeBbpFJrip918LD P8OkJbXMPryiXwvBeynW5cA cSsWCD9AFCkJMfjMDatQPQQ J6hwKNA4 CLINICAL HISTORY (test x7cuwJTwNXNxyEK8KwDfYQG code = 3356) ny6mru7UgmKZqxQYtMUmfyM VppeOsnu45pYN4wR50EU2cB MWqHlB2LEKzigU2Lzy2KAFy DBPngHYhN188k9rnl8frcnD fmKS9cRjzXWHmmaceAiK0RN mwMRZahkoqJTx0BVitNSZwz VY3MBYfuBIwO4DeAKXaBE6j pbl3WOS8HJcfIRKlShQ6IJI xjKZiKATowNygZLona996SS O8UxHmMVSwofWoqEenfM6cO zNeEJGQgzUhE3FlWQl1lFIe cGFyfQ== SPECIMEN SOURCE (test e8jmmEXdQLLkeJR8YdDsNBN code = 3377) bz2rxg7GzjYFzlOWnTBhurH QrboIafo15ePB4xT41LM3pS UJwPqL6XEBzywV5Jvy2AQKn FKAnyXLlZ394m3prn9rxqpR hiSF6lOavZGUbxgcfUxC4PL qxZNCzzbgbHEy3OIoqGHNdz YW6WJIdqTHqE7FoNEDuDO7o pzg9JQW1COxxPVVvFmA3SOW njDCwNWSfcDbqIHoda875YV S7WyOxMRMfcjZppSqyqL1fP nMyMCBNaXRyYWwgdmFsdmVc cGFyfQ== GROSS DESCRIPTION k3koyRFxTXQeyLWvXqKuJCW (test code = 3366) zDFCnb1jiQGFvlCFrMtRlTf NcZnRuYmpcdWMxXGRlZmYwe 1uhn860lRCwp2rlYGGeHyY2 fJFrJJWnwSWdW422YNAgIXg wy5kar5CiISNflULca4Z0PM AYuywcpYv8zVgkM75wv4T7X aqdH7ntHNQfNBFeQ4OwZP2y BPAzOqu4ATZ7NWY7BMQxZTH hT6ImJX3fRTPrcYOjHGm4e2 ihpJgrTTFoOWT0c3gxWOpmb fZvNT3zeb3djKa4p4ptlrUo ALSaNZBstUNPIUFuF7MzrQs bCg3uhNc1xAizSpidKCH5Wm s0NW7ota49kuf1dOdgKEHfq bcfBxQ3MVgwVWPloscoKOl6 MFxtYXJnbDcyMFxtYXJncjc yMFxtYXJndDcyMFxtYXJnYj ghBBlzOJUvZGR5TFwmy543A AR5WHiss8ygt0jhfKYzMqc1 PNGiZoUtPyotYOpvg8Hbf5z uYVEusf3yDSC2aLLcqYjyx7 N6kMIyCQHvrKNameYrWNYwS sK7PFcuSL0ksf70GRSxFPR0 px8oiIPtxWudxoMrqMZjLWw fY4HjAGPan856YNGiX1LjGT Cpz2S2jvSsRjCcFKDtlDK1f dC3EARqCTv9gDNitdD3umHw xVFjT3ukjC39ShLvgLLjF5K ysK70UaNlmCBoW2BzjF80Kk MsgYIwF4YkwQ22AbBoxWOcA OCgrGBuKb2bmYKavUTvm9Rv zUQoACbzK07yw499KRVppaB dG7fkpSKwtpwcpPYauueoOG cvdnK1NTWkYJYkXHypSOCmG GZzMjBcbGFuZzEwMzNcaGlj gFriMWtxDyWbLRNxEKduC8c cZjBcZnMyMCBBLiAgUmVjZW j5FMFrfR3fRm9jiHKrgE1ix IRvRYfpRKC2rLDoZFSuDVAd WCAkAC19Z0OtqA7bu3UtLFG pv86dHP6vITIhzYEzQAsaxk FsdmUgbWFzcyIgaXMgYSAxL bYaK11jdI8lpKJwQ5IoWVZ9 IDAuMyBjbSBpbiBkaWFtZXR izgN1RH3giDinhcN3zZSjjX IeYVqsfYPdFCjbEWZ7Gi0gi MMgILNpjaN2i9KiOAatKZNw s9FuoNDcUFSbXtapUZMttNV iQYFjnrOvsZmkgC4rLdUxHc MyNFxwbGFpblxmMVxmczIwX DtwbsabMOQfHPcoB3gcTxZf DWWawRwfCFqje9HbGPLzJAW hEeZlVFPbXDQsv8pnDX77DT xwbGFpblxmMFxmczIwXGxhb wnyLKWvZSvtU9rkOsQcYVJm oQjmHBixp5SaMVOpEBCpQeA ccGFyfQ== MICROSCOPIC j6ppzCEhHANpfFH0MiFqHGZ DESCRIPTION (test code rv0ync3EufLIcyNOvYSpikH = 3371) NqqgCjeq97aJQ0qW04AU3mD MGmYsH4VIEfayJ7Zbr0BXOp WDYvpNXvV722c1lra5shtwZ bwPI3sJwsIVSeeivyNsH0JD scJOIqooxqILy2CAuwWMWsh NX3RNXwxWQhR8TjQEQvVX4p hvo7DFB0MPasMMXzHfQ8GPN eoRUcQUBxfAxxMQrcv105HM Z0MqQkIPCxkqBikBfheP9pQ uUkDXSPNJXis3JlEICiDWYh cn0= SPECIAL STUDIES (test b4wnpGJwJNKzlNE3JrGoURA code = 3376) gq3csd4WapAGfdJRtIAaxlK NbxaVsby09sVB8gY51OQ4vV YIdPuN6QBVfejT2Vse4EOFi QPTqhSHkQ529HJLfAMMjzDg kaxw0pY66VBQiaB6ngFMrJR qwxzAvNAaakbBsvbSbXln3D SD7mZnoYJHxoplwEwJ0OShd OVGdlptjIKe9GQxgMRUlgPM 0JAKrxTYbD4JiZSXcST3cwj u2TST7UDqnXFFwDoJ4JBGsg WQePXDqcOrqFWqat848UTR3 ZyXsWFTqtuEzcFbrhM8bUhS cZnMyMlxjZjEgVGhlIGludG XjyKXzgCD0bR8xZW6eXMYvt LJgS7UlLXKkecSrtCRjNBD2 uEYesKMuPF2oRMlwwITfs7g mb3UfH1gzoPbvsKI2YP3gYD HfCZZcXLltt8BzkV1fFdirQ YHzV0ViTUTZM8KOLYHeINWO Jc6WIyOMLxJgTeXCXc5ySXy NUywgQUZCXHBhclxwYXJkXG YwYSCPk923wu1oCEHxjCZng fFVtKBbzA6mWYviQHezMCjj oINhVGhmq1bsOVLvw5b7yXY cTPXbarIgo1ouHYkasqNfNO HfaFRkfKTrUVAjo30mIHlmy QwjzRwdGBBgn9NjzPiko4Wz HnFwETkyd6TyU99usSKscQZ qcMzhATPyuyYoQEVqs02gg5 xaGHPcSyU8kQPwmNW0mWOif SCmp8NucAwfCFDrr1qaMUIl no5bahjasWZws7EzbP1vskm rKEmmwPXxcbKpLBFnr5x9wX UhHUYfNORyITvfjRn0HNGuo 214uk7dtrU4wFTtWIP9KPid YWJsZSBhcmUgZXZhbHVhdGV dHPXjjaZoEMDrouKJuX93tg 9xeLZ8i5VtSY2es1UjbIM5E WNobmljYWwgdGVzdGluZyB3 XKNddBXrBx0rsRKrRZJ3IBF lyQnpdzUAnA8oLLKhHLn0HE IaEqZhLuwisjZODIYeM4ArP FUfxjYytishSLW5dY8cr1a5 XWthXv9lIVMbognwd9etucI tfPCll7KmRLKdnuIjm4BdTM LhvqSdiRAaYKPuceRgmw0ux wWtJDZoJDDzJ4BziqtfpRqo qdJ0ZTWmWLFeyCVguGbyGBD cLKt9UEhplsCpf8JeLbVprz GflCCuqbTdRF0mKUMdfWEay iSqROP3MOBdRUWDQyUdWSOu k9VpGE3vPXGqiPxhEKIyaJ4 mm2DsUPXcx39jKKUhQYSWEG EgaGFzIGRldGVybWluZWQgd TaapDZcqLVyGXJaOFOkPU2n FXQswgQktJUff7MicSTrigU wd4BoqsNlHDZcANU0DqBKeZ FzgLFajQGtktP2g6UtULWfb hCygBcugTHskUElyCCmz4Vl kl1aZSWnh9rylFblMG4juET iZSByZWdhcmRlZCBhcyBpbn Rba9BwL5K4qY0kZOpip5BsR m6tWQXuj4IsmxHwYhHUjOws HVhjIl3vJTQfykocuBQsL7O ydGlmaWVkIHVuZGVyIHRoZS YFrHsfoILcaQLXGJHdhxQ0k 0G4TJobxQUqfhIjNZ97JLTw GE8qtRGacYWmt4OwBRx7UZN hF9aIKC05XTvlSQXsgVRbtO emsXYpKQEkBFBmmgWhif4ax FddqSXqs14ynBI8gCZ3JFNv oO6tC3RxJKtkUm2hFIEfyeb baSXcuLfeCq8amIYwtQ== Gross assessment was [facility] performed at ([facility], code = 2777) Department of Pathology, [address] [place] [id number], Technical component [facility]. [facility] was performed at ([facility], code = 2778) Department of Pathology, [address] [place] [id number], Professional component [facility]'s was performed at ([facility], code = 2779) Department of Pathology, [address] [facility], [place] [address], [facility] CenterPO[facility]SE [id number] 12:37:44 Test Item Value Reference Range Interpretation Comments POC-GLUCOSE METER 98 mg/dL 70-110 : TESTED A T [facility] 6720 (BEAKER) (test code = [facility], 1538) [id number]: Brewery Worker/Techni kelle ID = [id number] for Kathleen sta (contract), [facility] POCT-GLUCOSE [id number] 08:40:16 Test Item Value Reference Range Interpretation Comments POC-GLUCOSE METER 120 mg/dL 70-110 H : TESTED A T [facility] 6720 (BEAKER) (test code = [facility], 1538) 26192: Brewery Worker/Techni kelle ID = [id number] for Aditya brewer (contract), [facility] BASIC METABOLIC [id number] 04:46:57 Test Item Value Reference Range Interpretation [...] S NOT APPLICABLE FOR DIALYSIS PATIEN TS. Brewery Worker ID - HIEN MRAD, CHEST, 1 VIEW, NON [id number] 04:07:00Reason for exam:->post-opShould this be performed at the bedside?->Yes [facility] CENTERName: JAK MERRILL : 1955 Sex: FFINAL REPORT RAD, CHEST, 1 VIEW, NON DEPT INDICATION: post-op COMPARISON: Prior day's exam FINDINGS: Portable frontal view of the chest. IMPRESSION: Support Lines: Stable. Lungs and pleura: No interval consolidation or sizable effusion. No pneumothorax. Heart and mediastinum: Stable contours. Additional findings: None. Signed: Andrew Caryepwade Verified Date/Time: 06/24/2021 04:07:26 [id number] 03:54:16 Test Item Value Reference Range Interpretation Comments PHOSPHORUS (BEAKER) (test code = 4.3 mg/dL 2.3-4.7 604) Brewery Worker ID - HIEN [id number] 03:54:15 Test Item Value Reference Range Interpretation Comments MAGNESIUM (BEAKER) (test code = 2.4 mg/dL 1.6-2.6 627) Brewery Worker ID - HIEN [id number] 03:40:54 Test Item Value Reference Range Interpretation Comments PARTIAL THROMBOPLASTIN TIME 40.8 seconds 22.5-36.0 H (BEAKER) (test code = 760) PROTHROMBIN TIME/[id number] 03:39:49 Test Item Value Reference Range Interpretation Comments PROTIME (BEAKER) 13.1 seconds 11.9-14.2 (test code = 759) INR (BEAKER) (test 1.01 See_Comment [Automat ed message] code = 370) The system Pixel [employer] generated this result transmitted ref erence range: [...] WBC 0-0 (test code = 413) POCT-GLUCOSE [id number] 21:07:58 Test Item Value Reference Range Interpretation Comments POC-GLUCOSE METER 143 mg/dL 70-110 H : TESTED A T [facility] 67[facility] (BEAKER) (test code = [facility], 1538) 95247: Brewery Worker/Techni kelle ID = [id number] for Sheryl Bergeron POCT-GLUCOSE [id number] 16:23:05 Test Item Value Reference Range Interpretation Comments POC-GLUCOSE METER 126 mg/dL 70-110 H : TESTED A T [facility] 6720 (BEAKER) (test code = [facility] Nola [facility], 1538) [address]69[address]: Brewery Worker/Techni kelle ID = [id number] for OSMANY VOGEL BASIC METABOLIC [id number] 13:28:45 Test Item Value Reference Range Interpretation [...] S NOT APPLICABLE FOR DIALYSIS PATIEN TS. Brewery Worker ID - HIEN MPOCT-GLUCOSE [id number] 11:56:58 Test Item Value Reference Range Interpretation Comments POC-GLUCOSE METER 122 mg/dL 70-110 H : TESTED A T [facility] 6720 (BEAKER) (test code = [facility] [place] [facility], 1538) 48194: Brewery Worker/Techni kelle ID = [id number] for OSMANY VOGEL 2D Echo W/Doppler(CW/PW/Color)2021-06-23 08:20:29[facility]/PW/Color[facility]2021-06-23 08:20:29Ejection FractionSLEH ECHO HEARTLAB [facility](CW/PW/Color) 2021-06-23 08:20:29Ejection [facility]ractionSLEH ECHO [facility] W[facility]Doppler(CW/PW/Color)2021-06-23 08:20:29Ejection FractionSLEH ECHO [facility]ARTLAB [facility] W/Doppler(CW/PW/Color)2021-06-23 08:20:29Ejection [facility]LEH [facility](CW/PW/Color) 2021-06-23 08:20:29Ejection [facility]ractionSLEH ECHO [facility] W/Doppler(CW/PW/Color)2021-06-23 08:20:29Ejection [facility]SLEH [facility] W/Doppler(CW/PW/Color)2021-06-23 08:20:29Ejection FractionSLEH ECHO [facility] W/Doppler(CW/PW/Color) 2021-06-23 08:20:29Ejection [facility]ractionSLEH ECHO [facility] W/Doppler(CW/PW/Color)2021-06-23 08:20:29Ejection FractionSLEH ECHO [facility] W/Doppler(CW/PW/Color)2021-06-23 08:20:29Ejection [facility]LEH [facility]Do[facility](CW/PW/Color) 2021-06-23 08:20:29Ejection FractionSLEH ECHO [facility] W/Doppler(CW/PW/Color)2021-06-23 08:20:29Ejection FractionSLEH ECHO [facility] W/Doppler(CW/PW/Color)2021-06-23 08:20:29Ejection FractionSLEH ECHO [facility] W/Doppler(CW/PW/Color) 2021-06-23 08:20:29Ejection [facility]SLEH [facility] W/Doppler(CW/PW/Color)2021-06-23 08:20:29Ejection [facility]ractionSLE [facility] Echo W/Doppler(CW/PW/Color)2021-06-23 08:20:29Ejection FractionSLE ECHO HEARTLAB [facility]2D Echo W/Doppler(CW/PW/Color) 2021-06-23 08:20:29Ejection FractionSLE ECHO [facility] [id number] 07:43:14 Test Item Value Reference Range Interpretation Comments POC-GLUCOSE METER 111 mg/dL 70-110 H : TESTED A T [facility] ([place]) (test code = [place], 1538) [address]: Brewery Worker/Techni kelle ID = [id number] for OSMANY VOGEL BASIC METABOLIC [id number] 05:48:55 Test Item Value Reference Range Interpretation [...] S NOT APPLICABLE FOR DIALYSIS PATIEN TS. Brewery Worker ID - HIEN [id number] 05:28:52 Test Item Value Reference Range Interpretation Comments PHOSPHORUS (BEAKER) (test code = 3.7 mg/dL 2.3-4.7 604) Brewery Worker ID - HIEN [id number] 05:28:51 Test Item Value Reference Range Interpretation Comments MAGNESIUM (BEAKER) (test code = 2.2 mg/dL 1.6-2.6 627) Brewery Worker ID - HIEN MRAD, CHEST, 1 VIEW, NON [id number] 05:08:00Reason for exam:->post-opShould this be performed at the bedside?->Yes [facility] 1955 Sex: FFINAL REPORT RAD, CHEST, 1 VIEW, NON DEPT INDICATION: post-op COMPARISON: Prior day's exam FINDINGS: Portable frontal view of the chest. IMPRESSION: Support Lines: Stable. Lungs and pleura: There is improved aeration of both lungs. No new airspace consolidation. No pneumothorax. Heart and mediastinum: Stable contours. Additional findings: None. Signed: Andrew Cary VerifiedDate/Time: 06/23/2021 05:08:22 [id number] 03:01:03 Test Item Value Reference Range Interpretation Comments PARTIAL THROMBOPLASTIN TIME 35.7 seconds 22.5-36.0 (BEAKER) (test code = 760) PROTHROMBIN TIME/[id number] 03:00:01 Test Item Value Reference Range Interpretation Comments PROTIME (BEAKER) 13.3 seconds 11.9-14.2 (test code = 759) INR (BEAKER) (test 1.03 See_Comment [Automat ed message] code = 370) The system Pixel Qi generated this result transmitted ref erence range: [...] WBC 0-0 (test code = 413) POCT-GLUCOSE [id number] 22:23:22 Test Item Value Reference Range Interpretation Comments POC-GLUCOSE METER 146 mg/dL 70-110 H : TESTED A T [facility] 6720 (BEAKER) (test code = [facility], 1538) [address]: Brewery Worker/Techni kelle ID = [id number] for CRISTINA LAM MS POCT-GLUCOSE [id number] 18:28:19 Test Item Value Reference Range Interpretation Comments POC-GLUCOSE METER 101 mg/dL 70-110 : TESTED A T [facility] 6720 (BEAKER) (test code = [facility], 1538) 92171: Brewery Worker/Techni kelle ID = [id number] for Tacos rene (contract), [facility] er BASIC METABOLIC [id number] 14:57:30 Test Item Value Reference Range Interpretation [...] S NOT APPLICABLE FOR DIALYSIS PATIEN TS. Brewery Worker ID - AAHAMIDPOCT-GLUCOSE [id number] 12:37:53 Test Item Value Reference Range Interpretation Comments POC-GLUCOSE METER 69 mg/dL 70-110 L : TESTED A T [facility] 6720 (BEAKER) (test code = [facility], 1538) 71186: Brewery Worker/Techni kelle ID = [id number] for Frances y (contract), Amb er Oxygen saturation, [id number] 10:49:59 Test Item Value Reference Range Interpretation Comments O2 Saturation (Measured) (test code = 79.8 % 86365-8) [facility], [id number] 10:49:59 Test Item Value Reference Range Interpretation Comments O2 Saturation (Measured) (test code = 79.8 % 44141-3) [facility], [id number] 10:49:59 Test Item Value Reference Range Interpretation Comments O2 Saturation (Measured) (test code = 79.8 % 12451-3) [facility], [id number] 10:49:59 Test Item Value Reference Range Interpretation Comments O2 Saturation (Measured) (test code = 79.8 % 40490-0) [facility] saturation, [id number] 10:49:59 Test Item Value Reference Range Interpretation Comments O2 Saturation (Measured) (test code = 79.8 % 72389-9) [facility], [id number] 10:49:59 Test Item Value Reference Range Interpretation Comments O2 Saturation (Measured) (test code = 79.8 % 88036-4) [facility] saturation, [id number] 10:49:59 Test Item Value Reference Range Interpretation Comments O2 Saturation (Measured) (test code = 79.8 % 87665-5) [facility] saturation, [id number] 10:49:59 Test Item Value Reference Range Interpretation Comments O2 Saturation (Measured) (test code = 79.8 % 20476-6) [facility] Center[facility] saturation, [id number] 10:49:59 Test Item Value Reference Range Interpretation Comments O2 Saturation (Measured) (test code = 79.8 % 04360-1) [facility] CenterO[facility] saturation, [id number] 10:49:59 Test Item Value Reference Range Interpretation Comments O2 Saturation (Measured) (test code = 79.8 % 46235-9) [facility], [id number] 10:49:59 Test Item Value Reference Range Interpretation Comments O2 Saturation (Measured) (test code = 79.8 % 43307-8) [facility] CenterO[facility] saturation, [id number] 10:49:59 Test Item Value Reference Range Interpretation Comments O2 Saturation (Measured) (test code = 79.8 % 55325-2) [facility] saturation, [id number] 10:49:59 Test Item Value Reference Range Interpretation Comments O2 Saturation (Measured) (test code = 79.8 % 14658-9) [facility] saturation, [id number] 10:49:59 Test Item Value Reference Range Interpretation Comments O2 Saturation (Measured) (test code = 79.8 % 63291-5) [facility] saturation, [id number] 10:49:59 Test Item Value Reference Range Interpretation Comments O2 Saturation (Measured) (test code = 79.8 % 51001-3) [facility] CenterO[facility] saturation, [id number] 10:49:59 Test Item Value Reference Range Interpretation Comments O2 Saturation (Measured) (test code = 79.8 % 06975-6) [facility] CenterO[facility] saturation, [id number] 10:49:59 Test Item Value Reference Range Interpretation Comments O2 Saturation (Measured) (test code = 79.8 % 66328-2) [facility] CenterO[facility] saturation, [id number] 10:49:59 Test Item Value Reference Range Interpretation Comments O2 Saturation (Measured) (test code = 79.8 % 92904-8) [facility] CenterOXYGEN SATURATION, [id number] 10:49:59 Test Item Value Reference Range Interpretation Comments O2 SATURATION (MEASURED) (BEAKER) 79.8 % (test code = 1455) BASIC METABOLIC [id number] 07:15:45 Test Item Value Reference Range Interpretation [...] S NOT APPLICABLE FOR DIALYSIS PATIEN TS. Brewery Worker ID - DBRAD, CHEST, 1 VIEW, NON [id number] 03:19:00Reason for exam:->post-opShould this be performed at the bedside?->Yes [facility] : 1955 Sex: FFINAL REPORT CLINICAL INDICATION: post-op Comparison: 06/21/2021 The cardiomediastinal contours are stable. The lung volumes remain low. Central pulmonary vascular congestion and bilateral parenchymal opacities are unchanged. There is no pneumothorax. Support lines are stable. Signed:Braxton Quintero MDReport Verified Date/Time: 06/22/2021 03:19:08 BASIC METABOLIC [id number] 02:00:09 Test Item Value Reference Range Interpretation [...] S NOT APPLICABLE FOR DIALYSIS PATIEN TS. Brewery Worker ID - [id number] 01:57:06 Test Item Value Reference Range Interpretation Comments MAGNESIUM (BEAKER) 2.5 mg/dL 1.6-2.6 Specimen slightly (test code = 627) hemolyzed Brewery Worker ID - [id number] 01:57:06 Test Item Value Reference Range Interpretation Comments PHOSPHORUS (BEAKER) 5.0 mg/dL 2.3-4.7 H Specimen slightly (test code = 604) hemolyzed Brewery Worker ID - [id number] 01:54:46 Test Item Value Reference Range Interpretation Comments PARTIAL THROMBOPLASTIN TIME 37.8 seconds 22.5-36.0 H (BEAKER) (test code = 760) PROTHROMBIN TIME/[id number] 01:53:47 Test Item Value Reference Range Interpretation Comments PROTIME (BEAKER) 16.4 seconds 11.9-14.2 H (test code = 759) INR (BEAKER) (test 1.34 See_Comment [Automat ed message] code = 370) The system Pixel Qi generated this result transmitted ref erence range: [...] WBC 0-0 (test code = 413) POCT-GLUCOSE [id number] 21:22:08 Test Item Value Reference Range Interpretation Comments POC-GLUCOSE METER 73 mg/dL 70-110 : TESTED A T [facility] 67[address] (BEAKER) (test code = [place] [facility], 153) [address]: Brewery Worker/Techni kelle ID = [id number] for Rodríguez Rojas POCT-GLUCOSE [id number] 19:10:01 Test Item Value Reference Range Interpretation Comments POC-GLUCOSE METER 83 mg/dL 70-110 : TESTED A T [facility] 67[address] (BEAKER) (test code = [place] [facility], 153) 56668: Brewery Worker/Techni kelle ID = [id number] for HATTIE SALAZAR BASIC METABOLIC [id number] 14:08:36 Test Item Value Reference Range Interpretation [...] S NOT APPLICABLE FOR DIALYSIS PATIEN TS. Brewery Worker ID - DBPOCT-GLUCOSE [id number] 13:42:11 Test Item Value Reference Range Interpretation Comments POC-GLUCOSE METER 72 mg/dL 70-110 : TESTED A T [facility] (BEAKER) (test code = [facility] [place] [facility], 1538) 62120: Brewery Worker/Techni kelle ID = [id number] for Sun(contract ) Katt Surgically obtained culture + gram [id number] 11:46:53 Test Item Value Reference Range Interpretation Comments Result (test code = 6463-4) No growth Gram Stain Result (test No organisms seen code = 1123) [facility] + gram [id number] 11:46:53 Test Item Value Reference Range Interpretation Comments Result (test code = 6463-4) No growth Gram Stain Result (test No organisms seen code = 1123) [facility] + gram [id number] 11:46:53 Test Item Value Reference Range Interpretation Comments Result (test code = 6463-4) No growth Gram Stain Result (test No organisms seen code = 1123) [facility] + gram [id number] 11:46:53 Test Item Value Reference Range Interpretation Comments Result (test code = 6463-4) No growth Gram Stain Result (test No organisms seen code = 1123) [facility] + gram [id number] 11:46:53 Test Item Value Reference Range Interpretation Comments Result (test code = 6463-4) No growth Gram Stain Result (test No organisms seen code = 1123) [facility] + gram [id number] 11:46:53 Test Item Value Reference Range Interpretation Comments Result (test code = 6463-4) No growth Gram Stain Result (test No organisms seen code = 1123) [facility] + gram [id number] 11:46:53 Test Item Value Reference Range Interpretation Comments Result (test code = 6463-4) No growth Gram Stain Result (test No organisms seen code = 1123) [facility] + gram [id number] 11:46:53 Test Item Value Reference Range Interpretation Comments Result (test code = 6463-4) No growth Gram Stain Result (test No organisms seen code = 1123) [facility] + gram [id number] 11:46:53 Test Item Value Reference Range Interpretation Comments Result (test code = 6463-4) No growth Gram Stain Result (test No organisms seen code = 1123) [facility] + gram [id number] 11:46:53 Test Item Value Reference Range Interpretation Comments Result (test code = 6463-4) No growth Gram Stain Result (test No organisms seen code = 1123) [facility] + gram [id number] 11:46:53 Test Item Value Reference Range Interpretation Comments Result (test code = 6463-4) No growth Gram Stain Result (test No organisms seen code = 1123) [facility] + gram [id number] 11:46:53 Test Item Value Reference Range Interpretation Comments Result (test code = 6463-4) No growth Gram Stain Result (test No organisms seen code = 1123) [facility] + gram [id number] 11:46:53 Test Item Value Reference Range Interpretation Comments Result (test code = 6463-4) No growth Gram Stain Result (test No organisms seen code = 1123) [facility] + gram [id number] 11:46:53 Test Item Value Reference Range Interpretation Comments Result (test code = 6463-4) No growth Gram Stain Result (test No organisms seen code = 1123) [facility] + gram [id number] 11:46:53 Test Item Value Reference Range Interpretation Comments Result (test code = 6463-4) No growth Gram Stain Result (test No organisms seen code = 1123) [facility] + gram [id number] 11:46:53 Test Item Value Reference Range Interpretation Comments Result (test code = 6463-4) No growth Gram Stain Result (test No organisms seen code = 1123) [facility] + gram [id number] 11:46:53 Test Item Value Reference Range Interpretation Comments Result (test code = 6463-4) No growth Gram Stain Result (test No organisms seen code = 1123) [facility] + gram [id number] 11:46:53 Test Item Value Reference Range Interpretation Comments Result (test code = 6463-4) No growth Gram Stain Result (test No organisms seen code = 1123) [facility] CenterURGICALLY OBTAINED CULTURE + GRAM [id number] 11:46:53 Test Item Value Reference Range Interpretation Comments CULTURE (BEAKER) (test code No growth = 1095) GRAM STAIN RESULT (BEAKER) 1+ WBCs (test code = 1123) GRAM STAIN RESULT (BEAKER) No organisms seen (test code = 01447) RAD, CHEST, 1 VIEW, NON [id number] 06:05:00Reason for exam:->post-opShould this be performed at the bedside?->Yes [facility] : 1955 Sex: [...] MDReport Verified Date/Time: 06/21/2021 06:05:24 BASIC METABOLIC [id number] 03:54:19 Test Item Value Reference Range Interpretation [...] S NOT APPLICABLE FOR DIALYSIS PATIEN TS. Brewery Worker ID - [id number] 03:49:06 Test Item Value Reference Range Interpretation Comments PHOSPHORUS (BEAKER) (test code = 4.5 mg/dL 2.3-4.7 604) Brewery Worker ID - [id number] 03:49:05 Test Item Value Reference Range Interpretation Comments MAGNESIUM (BEAKER) (test code = 2.4 mg/dL 1.6-2.6 627) Brewery Worker ID - DBCBC (HEMOGRAM ONLY)2021-06-21 03:45:10 Test [...] /100 WBC 0-0 (test code = 413) [id number] 03:45:00 Test Item Value Reference Range Interpretation Comments PARTIAL THROMBOPLASTIN TIME 35.5 seconds 22.5-36.0 (BEAKER) (test code = 760) PROTHROMBIN TIME/[id number] 03:44:22 Test Item Value Reference Range Interpretation Comments PROTIME (BEAKER) 14.1 seconds 11.9-14.2 (test code = 759) INR (BEAKER) (test 1.11 See_Comment [Automat ed message] code = 370) The system Pixel Qi generated this result transmitted ref erence range: <=5.90. The reference range was not used to int erpret this result as normal/abnormal . RECOMMENDED COUMADIN/WARFARIN INR THERAPY RANGESSTANDARD DOSE: 2.0 - 3.0 Includes: PROPHYLAXIS for venous thrombosis, systemic embolization; TREATMENT for venous thrombosis and/or pulmonary embolus.HIGH RISK: Target INR is 2.5-3.5 for patients with mechanical heart valves.BASIC METABOLIC [id number] 18:24:15 Test Item Value Reference Range Interpretation [...] S NOT APPLICABLE FOR DIALYSIS PATIEN TS. Brewery Worker ID - PIAYA LPOCT-GLUCOSE [id number] 13:44:48 Test Item Value Reference Range Interpretation Comments POC-GLUCOSE METER 165 mg/dL 70-110 H : TESTED A T [facility] (BEAKER) (test code = [place], 1538) [address]: Brewery Worker/Techni kelle ID = [id number] for KOTA ARIAS SARS-CoV2/RT-PCR (Asymptomatic ONLY)2021-06-20 11:58:08 Test Item Value Reference Range Interpretation Comments SARS-COV2/RT-PCR Negative Not Detected, (test code = Negative, See 17298-0) external report for linked test SARS-COV-2 [facility]FORM[facility] (test code = 95910-5) BRANDI (test code = Negative result for [...] of the Act. Fact Sheet for Healthcare Providers:https://www.ApexPeak/sites/default/f radha/product/documents/F act_Sheet_HC_Providers_L qdb_ZBZZ-SlI-9.pdf Fact Sheet for Healthcare Patients:https://www.Xenapto/sites/default/fi les/product/documents/Fa ct_Sheet_Patients_Lyra_S ARS-CoV-2.pdf Performing Laboratory:[facility] [place] [address] [facility] CenterARS-[facility]2/RT-PCR (Asymptomatic ONLY)2021-06-20 11:58:08 Test Item Value Reference Range Interpretation Comments SARS-COV2/RT-PCR Negative Not Detected, (test code = Negative, See 66668-2) external report for linked test SARS-COV-2 [facility] (test code = 30127-3) BRANDI (test code = Negative result for [...] of the Act. Fact Sheet for Healthcare Providers:https://www.TrackIF idel.com/sites/default/f radha/product/documents/F act_Sheet_HC_Providers_L oqn_THNS-NjR-4.pdf Fact Sheet for Healthcare Patients:https://www.ankur del.Secure Command/sites/default/fi les/product/documents/Fa ct_Sheet_Patients_Lyra_S ARS-CoV-2.pdf Performing Laboratory:[facility] [place] [address] [facility] CenterARS-COV2/RT-PCR ([facility])2021-06-20 11:58:08 Test Item Value Reference Range Interpretation Comments SARS-COV2/RT-PCR (test Negative Not Detected, Negative, code = 0345067) See external report for linked test SARS-COV-[address] [facility] (test code = 5175429) Negative result for this test determines that [...] of the Act.Fact Sheet for Healthcare Prov iders:https://www.SmartAngels.fr.com/sites/default/files/product/documents/Fact_Sheet_HC _Zjrsvqies_Frml_IDPH-FzE-2.pdfFact Sheet for Healthcare Patients:https://www.SmartAngels.fr.com/sites/default/files/product/docume nts/Tlfu_Ooyvq_Gkvsuozj_Cyzl_QOJW-KeH-0.pdfPerforming Laboratory:[facility] [place], [place] [address]XRLE-WUSZONS METER 2021-06-20 06:30:37 Test Item Value Reference Range Interpretation Comments POC-GLUCOSE METER 145 mg/dL 70-110 H : TESTED A T 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 IMPRESSION: Support Lines: Interval extubation. A drainage catheter overlies the upper abdomen and lower hemidiaphragm in the center. [place] tipoverlies the pulmonary outflow tract. Pacer device and sternotomy wires are unchanged. Lungs and pleura: Bilateral effusions and adjacent compressive atelectasis are unchanged No significant pneumothorax. Heart and mediastinum: Normal contours. Additional findings: None. Signed: Bayron Cosme Verified Date/Time: 06/20/2021 06:25:51 Electronically signed by: BAYRON COSME MD on 0 06/20/2021 06:25 [id number] 02:12:20 Test Item Value Reference Range Interpretation Comments PARTIAL THROMBOPLASTIN TIME 35.8 seconds 22.5-36.0 (BEAKER) (test code = 760) PROTHROMBIN TIME/[id number] 02:11:37 Test Item Value Reference Range Interpretation Comments PROTIME (BEAKER) 15.4 seconds 11.9-14.2 H (test code = 759) INR (BEAKER) (test 1.24 See_Comment [Automat ed message] code = 370) The system Pixel Qi generated this result transmitted ref erence range: <=5.90. The reference range was not used to int erpret this result as normal/abnormal . RECOMMENDED COUMADIN/WARFARIN INR THERAPY RANGESSTANDARD DOSE: 2.0 - 3.0 Includes: PROPHYLAXIS for venous thrombosis, systemic embolization; TREATMENT for venous thrombosis and/or pulmonary embolus.HIGH RISK: Target INR is 2.5-3.5 for patients with mechanical heart valves.BASIC METABOLIC [id number] 02:08:36 Test Item Value Reference Range Interpretation [...] S NOT APPLICABLE FOR DIALYSIS PATIEN TS. Brewery Worker ID - [id number] 01:57:56 Test Item Value Reference Range Interpretation Comments PHOSPHORUS (BEAKER) (test code = 4.1 mg/dL 2.3-4.7 604) Brewery Worker ID - [id number] 01:57:55 Test Item Value Reference Range Interpretation Comments MAGNESIUM (BEAKER) (test code = 2.2 mg/dL 1.6-2.6 627) Brewery Worker ID - DBCBC (HEMOGRAM ONLY)2021-06-20 01:36:09 Test [...] 0-0 (test code = 413) Blood gas, [id number] 01:27:29 Test Item Value Reference Range Interpretation [...] 28 Lab Interpretation Abnormal (test code = 36892-8) [facility] [id number] 01:27:29 Test Item Value Reference Range Interpretation [...] 28 Lab Interpretation Abnormal (test code = 27064-9) [facility] gas, [id number] 01:27:29 Test Item Value Reference Range Interpretation [...] 28 Lab Interpretation Abnormal (test code = 95053-6) [facility], [id number] 01:27:29 Test Item Value Reference Range Interpretation [...] 28 Lab Interpretation Abnormal (test code = 63908-5) [facility], [id number] 01:27:29 Test Item Value Reference Range Interpretation [...] 28 Lab Interpretation Abnormal (test code = 82515-7) [facility], [id number] 01:27:29 Test Item Value Reference Range Interpretation [...] 28 Lab Interpretation Abnormal (test code = 26090-2) [facility], [id number] 01:27:29 Test Item Value Reference Range Interpretation [...] 28 Lab Interpretation Abnormal (test code = 31118-4) [facility], [id number] 01:27:29 Test Item Value Reference Range Interpretation [...] 28 Lab Interpretation Abnormal (test code = 72338-0) [facility], [id number] 01:27:29 Test Item Value Reference Range Interpretation [...] 28 Lab Interpretation Abnormal (test code = 72076-7) [facility], [id number] 01:27:29 Test Item Value Reference Range Interpretation [...] 28 Lab Interpretation Abnormal (test code = 89381-3) [facility], [id number] 01:27:29 Test Item Value Reference Range Interpretation [...] 28 Lab Interpretation Abnormal (test code = 29202-1) [facility], [id number] 01:27:29 Test Item Value Reference Range Interpretation [...] 28 Lab Interpretation Abnormal (test code = 58407-9) [facility], [id number] 01:27:29 Test Item Value Reference Range Interpretation [...] 28 Lab Interpretation Abnormal (test code = 58455-1) [facility], [id number] 01:27:29 Test Item Value Reference Range Interpretation [...] 28 Lab Interpretation Abnormal (test code = 81809-7) [facility], [id number] 01:27:29 Test Item Value Reference Range Interpretation [...] 28 Lab Interpretation Abnormal (test code = 85754-9) [facility] gas, ljjftqvo6386-30-46 01:27:29 Test Item Value Reference Range Interpretation [...] 28 Lab Interpretation Abnormal (test code = 45055-9) [facility], haxskjfa2277-49-78 01:27:29 Test Item Value Reference Range Interpretation [...] 28 Lab Interpretation Abnormal (test code = 78935-1) [facility], [id number] 01:27:29 Test Item Value Reference Range Interpretation [...] 28 Lab Interpretation Abnormal (test code = 71883-1) [facility] [id number] 01:27:29 Test Item Value Reference Range Interpretation [...] (BEAKER) (test code = 1819) 28.0 Calcium, [id number] 01:26:07 Test Item Value Reference Range Interpretation Comments Calcium, Ion (test code = 1993-06) 1.17 mmol/L 1.12-1.27 pH, Blood (test code = 89238-1) 7.39 [facility], [id number] 01:26:07 Test Item Value Reference Range Interpretation Comments Calcium, Ion (test code = 1993-06) 1.17 mmol/L 1.12-1.27 pH, Blood (test code = 25643-8) 7.39 [facility], [id number] 01:26:07 Test Item Value Reference Range Interpretation Comments Calcium, Ion (test code = 1993-06) 1.17 mmol/L 1.12-1.27 pH, Blood (test code = 19957-0) 7.39 [facility], [id number] 01:26:07 Test Item Value Reference Range Interpretation Comments Calcium, Ion (test code = 1993-06) 1.17 mmol/L 1.12-1.27 pH, Blood (test code = 98602-2) 7.39 [facility], [id number] 01:26:07 Test Item Value Reference Range Interpretation Comments Calcium, Ion (test code = 1993-06) 1.17 mmol/L 1.12-1.27 pH, Blood (test code = 51056-4) 7.39 [facility], [id number] 01:26:07 Test Item Value Reference Range Interpretation Comments Calcium, Ion (test code = 1993-06) 1.17 mmol/L 1.12-1.27 pH, Blood (test code = 49881-3) 7.39 [facility], [id number] 01:26:07 Test Item Value Reference Range Interpretation Comments Calcium, Ion (test code = 1993-06) 1.17 mmol/L 1.12-1.27 pH, Blood (test code = 95845-5) 7.39 [facility], [id number] 01:26:07 Test Item Value Reference Range Interpretation Comments Calcium, Ion (test code = 1993-06) 1.17 mmol/L 1.12-1.27 pH, Blood (test code = 94320-4) 7.39 [facility], [id number] 01:26:07 Test Item Value Reference Range Interpretation Comments Calcium, Ion (test code = 1993-06) 1.17 mmol/L 1.12-1.27 pH, Blood (test code = 40446-4) 7.39 [facility], [id number] 01:26:07 Test Item Value Reference Range Interpretation Comments Calcium, Ion (test code = 1993-06) 1.17 mmol/L 1.12-1.27 pH, Blood (test code = 80621-2) 7.39 [facility], [id number] 01:26:07 Test Item Value Reference Range Interpretation Comments Calcium, Ion (test code = 1993-06) 1.17 mmol/L 1.12-1.27 pH, Blood (test code = 48119-2) 7.39 [facility], [id number] 01:26:07 Test Item Value Reference Range Interpretation Comments Calcium, Ion (test code = 1993-06) 1.17 mmol/L 1.12-1.27 pH, Blood (test code = 57808-7) 7.39 [facility], [id number] 01:26:07 Test Item Value Reference Range Interpretation Comments Calcium, Ion (test code = 1993-06) 1.17 mmol/L 1.12-1.27 pH, Blood (test code = 59816-1) 7.39 [facility], [id number] 01:26:07 Test Item Value Reference Range Interpretation Comments Calcium, Ion (test code = 1993-06) 1.17 mmol/L 1.12-1.27 pH, Blood (test code = 53814-9) 7.39 [facility], [id number] 01:26:07 Test Item Value Reference Range Interpretation Comments Calcium, Ion (test code = 1993-06) 1.17 mmol/L 1.12-1.27 pH, Blood (test code = 61143-0) 7.39 [facility], [id number] 01:26:07 Test Item Value Reference Range Interpretation Comments Calcium, Ion (test code = 1993-06) 1.17 mmol/L 1.12-1.27 pH, Blood (test code = 54998-2) 7.39 [facility], [id number] 01:26:07 Test Item Value Reference Range Interpretation Comments Calcium, Ion (test code = 1993-06) 1.17 mmol/L 1.12-1.27 pH, Blood (test code = 17338-0) 7.39 [facility], Hzefuql0168-27-04 01:26:07 Test Item Value Reference Range Interpretation Comments Calcium, Ion (test code = 1993-06) 1.17 mmol/L 1.12-1.27 pH, Blood (test code = 65630-2) 7.39 [facility]CALCI[facility], [id number] 01:26:07 Test Item Value Reference Range Interpretation Comments CALCIUM IONIZED (BEAKER) (test 1.17 mmol/L 1.12-1.27 code = 698) PH, BLOOD (BEAKER) (test code = 7.39 1810) Prepare [id number] 23:55:00 Test Item Value Reference Range Interpretation Comments Unit ABO (test code = 5313110) A Pos UNIT NUMBER (test code = [id number] 934-0) Status (test code = 9074492) TX_TIMEINCHART Blood Bank Product (test code PLATELETS = 2263) PRODUCT CODE (test code = P7725D23 933-2) [facility] [id number] 23:55:00 Test Item Value Reference Range Interpretation Comments Unit ABO (test code = 0282868) A Pos UNIT NUMBER (test code = [id number] 934-0) Status (test code = 5271878) TX_TIMEINCHART Blood Bank Product (test code PLATELETS = 2263) PRODUCT CODE (test code = O5579N30 933-2) [facility] [id number] 23:55:00 Test Item Value Reference Range Interpretation Comments Unit ABO (test code = 2844984) A Pos UNIT NUMBER (test code = [id number] 934-0) Status (test code = 1208248) TX_TIMEINCHART Blood Bank Product (test code PLATELETS = 2263) PRODUCT CODE (test code = H6834N21 933-2) [facility] [id number] 23:55:00 Test Item Value Reference Range Interpretation Comments Unit ABO (test code = 2795441) A Pos UNIT NUMBER (test code = [id number] 934-0) Status (test code = 9649164) TX_TIMEINCHART Blood Bank Product (test code PLATELETS = 2263) PRODUCT CODE (test code = N1715L58 933-2) [facility] [id number] 23:55:00 Test Item Value Reference Range Interpretation Comments Unit ABO (test code = 2202676) A Pos UNIT NUMBER (test code = [id number] 934-0) Status (test code = 2877422) TX_TIMEINCHART Blood Bank Product (test code PLATELETS = 2263) PRODUCT CODE (test code = U1651A38 933-2) [facility] [id number] 23:55:00 Test Item Value Reference Range Interpretation Comments Unit ABO (test code = 9706871) A Pos UNIT NUMBER (test code = [id number] 934-0) Status (test code = 4192765) TX_TIMEINCHART Blood Bank Product (test code PLATELETS = 2263) PRODUCT CODE (test code = D2527A04 933-2) [facility] [id number] 23:55:00 Test Item Value Reference Range Interpretation Comments Unit ABO (test code = 6474832) A Pos UNIT NUMBER (test code = [id number] 934-0) Status (test code = 5787082) TX_TIMEINCHART Blood Bank Product (test code PLATELETS = 2263) PRODUCT CODE (test code = J3964D73 933-2) [facility] [id number] 23:55:00 Test Item Value Reference Range Interpretation Comments Unit ABO (test code = 5603127) A Pos UNIT NUMBER (test code = [id number] 934-0) Status (test code = 9198805) TX_TIMEINCHART Blood Bank Product (test code PLATELETS = 2263) PRODUCT CODE (test code = Q6568E20 933-2) [facility] [id number] 23:55:00 Test Item Value Reference Range Interpretation Comments Unit ABO (test code = 3620372) A Pos UNIT NUMBER (test code = [id number] 934-0) Status (test code = 9511905) TX_TIMEINCHART Blood Bank Product (test code PLATELETS = 2263) PRODUCT CODE (test code = A2800G61 933-2) [facility] [id number] 23:55:00 Test Item Value Reference Range Interpretation Comments Unit ABO (test code = 9357167) A Pos UNIT NUMBER (test code = [id number] 934-0) Status (test code = 7094637) TX_TIMEINCHART Blood Bank Product (test code PLATELETS = 2263) PRODUCT CODE (test code = L6708S57 933-2) [facility] [id number] 23:55:00 Test Item Value Reference Range Interpretation Comments Unit ABO (test code = 9039654) A Pos UNIT NUMBER (test code = [id number] 934-0) Status (test code = 3367331) TX_TIMEINCHART Blood Bank Product (test code PLATELETS = 2263) PRODUCT CODE (test code = A8562F85 933-2) [facility] [id number] 23:55:00 Test Item Value Reference Range Interpretation Comments Unit ABO (test code = 8145351) A Pos UNIT NUMBER (test code = [id number] 934-0) Status (test code = 7323159) TX_TIMEINCHART Blood Bank Product (test code PLATELETS = 2263) PRODUCT CODE (test code = W0376J26 933-2) [facility] [id number] 23:55:00 Test Item Value Reference Range Interpretation Comments Unit ABO (test code = 7589975) A Pos UNIT NUMBER (test code = [id number] 934-0) Status (test code = 8398282) TX_TIMEINCHART Blood Bank Product (test code PLATELETS = 2263) PRODUCT CODE (test code = V2611Q44 933-2) [facility] [id number] 23:55:00 Test Item Value Reference Range Interpretation Comments Unit ABO (test code = 4928189) A Pos UNIT NUMBER (test code = [id number] 934-0) Status (test code = 2558668) TX_TIMEINCHART Blood Bank Product (test code PLATELETS = 2263) PRODUCT CODE (test code = Y3679I78 933-2) [facility] [id number] 23:55:00 Test Item Value Reference Range Interpretation Comments Unit ABO (test code = 5648607) A Pos UNIT NUMBER (test code = [id number] 934-0) Status (test code = 2065099) TX_TIMEINCHART Blood Bank Product (test code PLATELETS = 2263) PRODUCT CODE (test code = V4280V96 933-2) [facility] [id number] 23:55:00 Test Item Value Reference Range Interpretation Comments Unit ABO (test code = 2294840) A Pos UNIT NUMBER (test code = [id number] 934-0) Status (test code = 4694878) TX_TIMEINCHART Blood Bank Product (test code PLATELETS = 2263) PRODUCT CODE (test code = M2159T51 933-2) [facility] [id number] 23:55:00 Test Item Value Reference Range Interpretation Comments Unit ABO (test code = 6047773) A Pos UNIT NUMBER (test code = [id number] 934-0) Status (test code = 8588716) TX_TIMEINCHART Blood Bank Product (test code PLATELETS = 2263) PRODUCT CODE (test code = V8562U25 933-2) [facility] [id number] 23:55:00 Test Item Value Reference Range Interpretation Comments Unit ABO (test code = 8793017) A Pos UNIT NUMBER (test code = [id number] 934-0) Status (test code = 3283100) TX_TIMEINCHART Blood Bank Product (test code PLATELETS = 2263) PRODUCT CODE (test code = K8642X44 933-2) [facility] [id number] 23:54:00 Test Item Value Reference Range Interpretation Comments CROSSMATCH (test code = COMPATIBLE 2264) Unit ABO (test code = O Pos 8613652) UNIT NUMBER (test code = [id number] 934-0) Status (test code = RETURNED FROM ISSUE 3403877) Blood Bank Product (test RED BLOOD CELLS code = 2263) PRODUCT CODE (test code = J9112A26 933-2) [facility] [id number] 23:54:00 Test Item Value Reference Range Interpretation Comments CROSSMATCH (test code = COMPATIBLE 2264) Unit ABO (test code = O Pos 8052393) UNIT NUMBER (test code = [id number] 934-0) Status (test code = RETURNED FROM ISSUE 7842215) Blood Bank Product (test RED BLOOD CELLS code = 2263) PRODUCT CODE (test code = U3843C29 933-2) [facility] [id number] 23:54:00 Test Item Value Reference Range Interpretation Comments CROSSMATCH (test code = COMPATIBLE 2264) Unit ABO (test code = O Pos 0340531) UNIT NUMBER (test code = [id number] 934-0) Status (test code = RETURNED FROM ISSUE 15100613) Blood Bank Product (test RED BLOOD CELLS code = 2263) PRODUCT CODE (test code = G0377S87 933-2) [facility] [id number] 23:54:00 Test Item Value Reference Range Interpretation Comments CROSSMATCH (test code = COMPATIBLE 2264) Unit ABO (test code = O Pos 4721634) UNIT NUMBER (test code = [id number] 934-0) Status (test code = RETURNED FROM ISSUE 15100613) Blood Bank Product (test RED BLOOD CELLS code = 2263) PRODUCT CODE (test code = U7610G71 933-2) [facility]2022-03-18 23:54:00 Test Item Value Reference Range Interpretation Comments CROSSMATCH (test code = COMPATIBLE 2264) Unit ABO (test code = O Pos 9393546) UNIT NUMBER (test code = [id number] 934-0) Status (test code = RETURNED FROM ISSUE 15100613) Blood Bank Product (test RED BLOOD CELLS code = 2263) PRODUCT CODE (test code = F1964F70 933-2) [facility] [id number] 23:54:00 Test Item Value Reference Range Interpretation Comments CROSSMATCH (test code = COMPATIBLE 2264) Unit ABO (test code = O Pos 8496571) UNIT NUMBER (test code = [id number] 934-0) Status (test code = RETURNED FROM ISSUE 15100613) Blood Bank Product (test RED BLOOD CELLS code = 2263) PRODUCT CODE (test code = C8810H49 933-2) [facility] [id number] 23:54:00 Test Item Value Reference Range Interpretation Comments CROSSMATCH (test code = COMPATIBLE 2264) Unit ABO (test code = O Pos 4779094) UNIT NUMBER (test code = [id number] 934-0) Status (test code = RETURNED FROM ISSUE 15100613) Blood Bank Product (test RED BLOOD CELLS code = 2263) PRODUCT CODE (test code = W6116T25 933-2) [facility] [id number] 23:54:00 Test Item Value Reference Range Interpretation Comments CROSSMATCH (test code = COMPATIBLE 2264) Unit ABO (test code = O Pos 4689909) UNIT NUMBER (test code = [id number] 934-0) Status (test code = RETURNED FROM ISSUE 15100613) Blood Bank Product (test RED BLOOD CELLS code = 2263) PRODUCT CODE (test code = O0390H43 933-2) [facility] [id number] 23:54:00 Test Item Value Reference Range Interpretation Comments CROSSMATCH (test code = COMPATIBLE 2264) Unit ABO (test code = O Pos 1135732) UNIT NUMBER (test code = [id number] 934-0) Status (test code = RETURNED FROM ISSUE 15100613) Blood Bank Product (test RED BLOOD CELLS code = 2263) PRODUCT CODE (test code = X0873X69 933-2) [facility] [id number] 23:54:00 Test Item Value Reference Range Interpretation Comments CROSSMATCH (test code = COMPATIBLE 2264) Unit ABO (test code = O Pos 5175687) UNIT NUMBER (test code = [id number] 934-0) Status (test code = RETURNED FROM ISSUE 15100613) Blood Bank Product (test RED BLOOD CELLS code = 2263) PRODUCT CODE (test code = U4816E98 933-2) [facility] [id number] 23:54:00 Test Item Value Reference Range Interpretation Comments CROSSMATCH (test code = COMPATIBLE 2264) Unit ABO (test code = O Pos 9909918) UNIT NUMBER (test code = [id number] 934-0) Status (test code = RETURNED FROM ISSUE 15100613) Blood Bank Product (test RED BLOOD CELLS code = 2263) PRODUCT CODE (test code = Z1812B90 933-2) [facility] [id number] 23:54:00 Test Item Value Reference Range Interpretation Comments CROSSMATCH (test code = COMPATIBLE 2264) Unit ABO (test code = O Pos 4234593) UNIT NUMBER (test code = [id number] 934-0) Status (test code = RETURNED FROM ISSUE 15100613) Blood Bank Product (test RED BLOOD CELLS code = 2263) PRODUCT CODE (test code = A0179M65 933-2) [facility]2022-03-18 23:54:00 Test Item Value Reference Range Interpretation Comments CROSSMATCH (test code = COMPATIBLE 2264) Unit ABO (test code = O Pos 7339197) UNIT NUMBER (test code = [id number] 934-0) Status (test code = RETURNED FROM ISSUE 15100613) Blood Bank Product (test RED BLOOD CELLS code = 2263) PRODUCT CODE (test code = B5777C83 933-2) [facility]2022-03-18 23:54:00 Test Item Value Reference Range Interpretation Comments CROSSMATCH (test code = COMPATIBLE 2264) Unit ABO (test code = O Pos 0028433) UNIT NUMBER (test code = [id number] 934-0) Status (test code = RETURNED FROM ISSUE 15100613) Blood Bank Product (test RED BLOOD CELLS code = 2263) PRODUCT CODE (test code = O2721X57 933-2) [facility]2022-03-18 23:54:00 Test Item Value Reference Range Interpretation Comments CROSSMATCH (test code = COMPATIBLE 2264) Unit ABO (test code = O Pos 8734537) UNIT NUMBER (test code = [id number] 934-0) Status (test code = RETURNED FROM ISSUE 15100613) Blood Bank Product (test RED BLOOD CELLS code = 2263) PRODUCT CODE (test code = F2834C73 933-2) [facility]2022-03-18 23:54:00 Test Item Value Reference Range Interpretation Comments CROSSMATCH (test code = COMPATIBLE 2264) Unit ABO (test code = O Pos 9264598) UNIT NUMBER (test code = [id number] 934-0) Status (test code = RETURNED FROM ISSUE 15100613) Blood Bank Product (test RED BLOOD CELLS code = 2263) PRODUCT CODE (test code = R3035L50 933-2) [facility] [id number] 23:54:00 Test Item Value Reference Range Interpretation Comments CROSSMATCH (test code = COMPATIBLE 2264) Unit ABO (test code = O Pos 2405871) UNIT NUMBER (test code = [id number] 934-0) Status (test code = RETURNED FROM ISSUE 15100613) Blood Bank Product (test RED BLOOD CELLS code = 2263) PRODUCT CODE (test code = L7200G97 933-2) [facility] [id number] 23:54:00 Test Item Value Reference Range Interpretation Comments CROSSMATCH (test code = COMPATIBLE 2264) Unit ABO (test code = O Pos 3246749) UNIT NUMBER (test code = [id number] 934-0) Status (test code = RETURNED FROM ISSUE 15100613) Blood Bank Product (test RED BLOOD CELLS code = 2263) PRODUCT CODE (test code = G1696Z67 933-2) [facility] [id number] 22:04:29 Test Item Value Reference Range Interpretation [...] S NOT APPLICABLE FOR DIALYSIS PATIEN TS. Brewery Worker ID - [id number] 22:03:41 Test Item Value Reference Range Interpretation Comments PHOSPHORUS (BEAKER) (test code = 4.3 mg/dL 2.3-4.7 604) Brewery Worker ID - [id number] 22:03:40 Test Item Value Reference Range Interpretation Comments MAGNESIUM (BEAKER) (test code = 2.2 mg/dL 1.6-2.6 627) Brewery Worker ID - DBpH, [id number] 21:40:14 Test Item Value Reference Range Interpretation Comments pH, Arterial (test code = 2744-1) 7.37 7.35-7.45 Lab Interpretation (test code = Normal 67959-1) [facility]2022-03-18 21:40:14 Test Item Value Reference Range Interpretation Comments pH, Arterial (test code = 2744-1) 7.37 7.35-7.45 Lab Interpretation (test code = Normal 75930-0) [facility]2022-03-18 21:40:14 Test Item Value Reference Range Interpretation Comments pH, Arterial (test code = 2744-1) 7.37 7.35-7.45 Lab Interpretation (test code = Normal 59140-6) [facility]2022-03-18 21:40:14 Test Item Value Reference Range Interpretation Comments pH, Arterial (test code = 2744-1) 7.37 7.35-7.45 Lab Interpretation (test code = Normal 52738-2) [facility]2022-03-18 21:40:14 Test Item Value Reference Range Interpretation Comments pH, Arterial (test code = 2744-1) 7.37 7.35-7.45 Lab Interpretation (test code = Normal 82638-6) [facility]2022-03-18 21:40:14 Test Item Value Reference Range Interpretation Comments pH, Arterial (test code = 2744-1) 7.37 7.35-7.45 Lab Interpretation (test code = Normal 68173-2) [facility]2022-03-18 21:40:14 Test Item Value Reference Range Interpretation Comments pH, Arterial (test code = 2744-1) 7.37 7.35-7.45 Lab Interpretation (test code = Normal 87580-6) [facility] [id number] 21:40:14 Test Item Value Reference Range Interpretation Comments pH, Arterial (test code = 2744-1) 7.37 7.35-7.45 Lab Interpretation (test code = Normal 21039-3) [facility]2022-03-18 21:40:14 Test Item Value Reference Range Interpretation Comments pH, Arterial (test code = 2744-1) 7.37 7.35-7.45 Lab Interpretation (test code = Normal 15317-2) [facility]2022-03-18 21:40:14 Test Item Value Reference Range Interpretation Comments pH, Arterial (test code = 2744-1) 7.37 7.35-7.45 Lab Interpretation (test code = Normal 85651-2) [facility]2022-03-18 21:40:14 Test Item Value Reference Range Interpretation Comments pH, Arterial (test code = 2744-1) 7.37 7.35-7.45 Lab Interpretation (test code = Normal 48847-8) [facility]2022-03-18 21:40:14 Test Item Value Reference Range Interpretation Comments pH, Arterial (test code = 2744-1) 7.37 7.35-7.45 Lab Interpretation (test code = Normal 25928-8) [facility]2022-03-18 21:40:14 Test Item Value Reference Range Interpretation Comments pH, Arterial (test code = 2744-1) 7.37 7.35-7.45 Lab Interpretation (test code = Normal 11175-2) [facility]2022-03-18 21:40:14 Test Item Value Reference Range Interpretation Comments pH, Arterial (test code = 2744-1) 7.37 7.35-7.45 Lab Interpretation (test code = Normal 67359-9) [facility]2022-03-18 21:40:14 Test Item Value Reference Range Interpretation Comments pH, Arterial (test code = 2744-1) 7.37 7.35-7.45 Lab Interpretation (test code = Normal 44329-1) [facility], [id number] 21:40:14 Test Item Value Reference Range Interpretation Comments pH, Arterial (test code = 2744-1) 7.37 7.35-7.45 Lab Interpretation (test code = Normal 76757-6) [facility], [id number] 21:40:14 Test Item Value Reference Range Interpretation Comments pH, Arterial (test code = 2744-1) 7.37 7.35-7.45 Lab Interpretation (test code = Normal 03133-3) [facility], [id number] 21:40:14 Test Item Value Reference Range Interpretation Comments pH, Arterial (test code = 2744-1) 7.37 7.35-7.45 Lab Interpretation (test code = Normal 43219-2) [facility], [id number] 21:40:14 Test Item Value Reference Range Interpretation Comments PH ARTERIAL (BEAKER) (test code = 383) 7.37 7.35-7.45 POCT-GLUCOSE [id number] 18:07:04 Test Item Value Reference Range Interpretation Comments POC-GLUCOSE METER 208 mg/dL 70-110 H : TESTED A T [facility] (BEAKER) (test code = [place], 1538) [address]: Brewery Worker/Techni kelle ID = [id number] for Chilo Mccarty BLOOD GAS, [id number] 12:45:46 Test Item Value Reference Range Interpretation [...] (test code = 1819) 36.0 BLOOD GAS, [id number] 11:23:57 Test Item Value Reference Range Interpretation [...] FIO2 (BEAKER) (test code = 1819) 40.0 [id number] 09:37:11 Test Item Value Reference Range Interpretation Comments Scan Result (test code = See scanned report [id number]) BRANDI (test code = BRANDI) See scanned report [place] [id number] 09:37:11 Test Item Value Reference Range Interpretation Comments Scan Result (test code = See scanned report [id number]) BRANDI (test code = BRANDI) See scanned report [place] 93993022-03-18 09:37:11 Test Item Value Reference Range Interpretation Comments Scan Result (test code = See scanned report [id number]) BRANDI (test code = BRANDI) See scanned report [place] [id number] 09:37:11 Test Item Value Reference Range Interpretation Comments Scan Result (test code = See scanned report [id number]) BRANDI (test code = BRANDI) See scanned report [place] 598322-03-18 09:37:11 Test Item Value Reference Range Interpretation Comments Scan Result (test code = See scanned report [id number]) BRANDI (test code = BRANDI) See scanned report [place] 598322-03-18 09:37:11 Test Item Value Reference Range Interpretation Comments Scan Result (test code = See scanned report [id number]) BRANDI (test code = BRANDI) See scanned report [address]03-18 09:37:11 Test Item Value Reference Range Interpretation Comments Scan Result (test code = See scanned report [id number]) BRANDI (test code = BRANDI) See scanned report [address]03-18 09:37:11 Test Item Value Reference Range Interpretation Comments Scan Result (test code = See scanned report [id number]) BRANDI (test code = BRANDI) See scanned report [address]03-18 09:37:11 Test Item Value Reference Range Interpretation Comments Scan Result (test code = See scanned report [id number]) BRANDI (test code = BRANDI) See scanned report [address]03-18 09:37:11 Test Item Value Reference Range Interpretation Comments Scan Result (test code = See scanned report [id number]) BRANDI (test code = BRANDI) See scanned report [address]03-18 09:37:11 Test Item Value Reference Range Interpretation Comments Scan Result (test code = See scanned report [id number]) BRANDI (test code = BRANDI) See scanned report [place] [address]-03-18 09:37:11 Test Item Value Reference Range Interpretation Comments Scan Result (test code = See scanned report [id number]) BRANDI (test code = BRANDI) See scanned report [address]03-18 09:37:11 Test Item Value Reference Range Interpretation Comments Scan Result (test code = See scanned report [id number]) BRANDI (test code = BRANDI) See scanned report [place] [address]-03-18 09:37:11 Test Item Value Reference Range Interpretation Comments Scan Result (test code = See scanned report [id number]) BRANDI (test code = BRANDI) See scanned report [address]03-18 09:37:11 Test Item Value Reference Range Interpretation Comments Scan Result (test code = See scanned report [id number]) BRANDI (test code = BRANDI) See scanned report [address]03[address]18 09:37:11 Test Item Value Reference Range Interpretation Comments Scan Result (test code = See scanned report [id number]) BRANDI (test code = BRANDI) See scanned report [facility]11 Test Item Value Reference Range Interpretation Comments Scan Result (test code = See scanned report [id number]) BRANDI (test code = BRANDI) See scanned report [facility] 09:37:11 Test Item Value Reference Range Interpretation Comments Scan Result (test code = See scanned report [id number]) BRANDI (test code = BRANDI) See scanned report [facility] [id number] 09:37:11 Test Item Value Reference Range Interpretation Comments SCAN RESULT (test code = See scanned report [id number]) See scanned reportPOCT-GLUCOSE [id number] 08:52:16 Test Item Value Reference Range Interpretation Comments POC-GLUCOSE METER 165 mg/dL 70-110 H : TESTED A T [facility] (BEAKER) (test code = [place], 1538) [address]: Brewery Worker/Techni kelle ID = [id number] for Chilo Mccarty RAD, CHEST, 1 VIEW, NON [id number] 04:10:00Reason for exam:->post-opShould this be performed at the bedside?->Yes [facility] MERRILLADITYA MONTOYA : 1955 Sex: FFINAL REPORT RAD, CHEST, 1 VIEW, NON DEPT INDICATION: post-op COMPARISON: Prior day's exam FINDINGS: Portable frontal view of the chest. IMPRESSION: Support Lines: Stable Lungs and pleura: Unchanged central venous congestion. No new consolidation or effusion. No pneumothorax. Heart and mediastinum: Stable contours. Additional findings: None. Signed: Andrew Caryeport Verified Date/Time: 06/19/2021 04:10:04 BASIC METABOLIC [id number] 03:27:20 Test Item Value Reference Range Interpretation [...] S NOT APPLICABLE FOR DIALYSIS PATIEN TS. Brewery Worker ID - RAKAN [id number] 03:26:39 Test Item Value Reference Range Interpretation Comments MAGNESIUM (BEAKER) (test code = 2.4 mg/dL 1.6-2.6 627) Brewery Worker ID - RAKAN [id number] 03:26:39 Test Item Value Reference Range Interpretation Comments PHOSPHORUS (BEAKER) (test code = 4.8 mg/dL 2.3-4.7 H 604) Brewery Worker ID - RAKAN [id number] 03:02:29 Test Item Value Reference Range Interpretation Comments PARTIAL THROMBOPLASTIN TIME 35.4 seconds 22.5-36.0 (BEAKER) (test code = 760) PROTHROMBIN [id number] 03:01:50 Test Item Value Reference Range Interpretation Comments PROTIME (BEAKER) 16.0 seconds 11.9-14.2 H (test code = 759) INR (BEAKER) (test 1.31 See_Comment [Automat ed message] code = 370) The system Pixel Qi generated this result transmitted ref erence range: [...] 0-0 (test code = 413) OXYGEN SATURATION, [id number] 02:28:43 Test Item Value Reference Range Interpretation Comments O2 SATURATION (MEASURED) (BEAKER) 79.3 % (test code = 1455) BLOOD GAS, [id number] 02:25:53 Test Item Value Reference Range Interpretation [...] (BEAKER) (test code = 1819) 40.0 POCT-GLUCOSE [id number] 00:06:42 Test Item Value Reference Range Interpretation Comments POC-GLUCOSE METER 88 mg/dL 70-110 : TESTED A T [facility] 67[facility] (BEAKER) (test code = [facility], 1538) [address]: Brewery Worker/Techni kelle ID = [id number] for JUGU ILON (V), ERICK POCT-GLUCOSE [id number] 23:14:53 Test Item Value Reference Range Interpretation Comments POC-GLUCOSE METER 91 mg/dL 70-110 : TESTED A T [facility] 67[address] (BEAKER) (test code = [facility], 1538) 14794: Brewery Worker/Techni kelle ID = [id number] for JUGU ILON (V), ERICK POCT-GLUCOSE [id number] 21:30:27 Test Item Value Reference Range Interpretation Comments POC-GLUCOSE METER 128 mg/dL 70-110 H : TESTED A T [facility] (BEAKER) (test code = [facility], 1538) 387[address]: Brewery Worker/Techni kelle ID = [id number] for JU GUILON (V), ERICK POCT-GLUCOSE [id number] 19:05:18 Test Item Value Reference Range Interpretation Comments POC-GLUCOSE METER 165 mg/dL 70-110 H : TESTED A T [facility] [address] (BEAKER) (test code = [facility], 1538) 477[address]: Brewery Worker/Techni kelle ID = [id number] for JA COB, JESMI BASIC METABOLIC [id number] 18:47:16 Test Item Value Reference Range Interpretation [...] S NOT APPLICABLE FOR DIALYSIS PATIEN TS. Brewery Worker ID - HIEN [id number] 18:44:55 Test Item Value Reference Range Interpretation Comments MAGNESIUM (BEAKER) (test code = 2.5 mg/dL 1.6-2.6 627) Brewery Worker ID - HIEN [id number] 18:44:55 Test Item Value Reference Range Interpretation Comments PHOSPHORUS (BEAKER) (test code = 4.7 mg/dL 2.3-4.7 604) Brewery Worker ID - HIEN MBLOOD GAS, [id number] 18:43:01 Test Item Value Reference Range Interpretation [...] (test code = 1819) 60.0 OXYGEN SATURATION, [id number] 18:40:36 Test Item Value Reference Range Interpretation Comments O2 SATURATION (MEASURED) (BEAKER) 90.5 % (test code = 1455) Lactic Acid, [id number] 18:40:35 Test Item Value Reference Range Interpretation Comments Lactate, Art (test code = 2.1 mmol/L 0.5-2.2 2874) BRANDI (test code = BRANDI) Brewery Worker ID - HIEN M Lab Interpretation (test Normal code = 16396-6) [facility], [id number] 18:40:35 Test Item Value Reference Range Interpretation Comments Lactate, Art (test code = 2.1 mmol/L 0.5-2.2 2874) BRANDI (test code = BRANDI) Brewery Worker ID - HIEN Lab Interpretation (test Normal code = 89267-8) [facility], [id number] 18:40:35 Test Item Value Reference Range Interpretation Comments Lactate, Art (test code = 2.1 mmol/L 0.5-2.2 2874) BRANDI (test code = BRANDI) Brewery Worker ID - HIEN Lab Interpretation (test Normal code = 72968-7) [facility] CenterL[facility] Acid, [id number] 18:40:35 Test Item Value Reference Range Interpretation Comments Lactate, Art (test code = 2.1 mmol/L 0.5-2.2 2874) BRANDI (test code = BRANDI) Brewery Worker ID - HIEN M Lab Interpretation (test Normal code = 94214-8) [facility] Acid, [id number] 18:40:35 Test Item Value Reference Range Interpretation Comments Lactate, Art (test code = 2.1 mmol/L 0.5-2.2 2874) BRANDI (test code = BRANDI) Brewery Worker ID - HIEN M Lab Interpretation (test Normal code = 17286-9) [facility] CenterL[facility] Acid, [id number] 18:40:35 Test Item Value Reference Range Interpretation Comments Lactate, Art (test code = 2.1 mmol/L 0.5-2.2 2874) BRANDI (test code = BRANDI) Brewery Worker ID - HIEN M Lab Interpretation (test Normal code = 36188-3) [facility], [id number] 18:40:35 Test Item Value Reference Range Interpretation Comments Lactate, Art (test code = 2.1 mmol/L 0.5-2.2 2874) BRANDI (test code = BRANDI) Brewery Worker ID - HIEN M Lab Interpretation (test Normal code = 93177-4) [facility] CenterL[facility] Acid, [id number] 18:40:35 Test Item Value Reference Range Interpretation Comments Lactate, Art (test code = 2.1 mmol/L 0.5-2.2 2874) BRANDI (test code = BRANDI) Brewery Worker ID - HIEN M Lab Interpretation (test Normal code = 75370-4) [facility] Acid, [id number] 18:40:35 Test Item Value Reference Range Interpretation Comments Lactate, Art (test code = 2.1 mmol/L 0.5-2.2 2874) BRANDI (test code = BRANDI) Brewery Worker ID - HIEN M Lab Interpretation (test Normal code = 51800-0) [facility] Acid, [id number] 18:40:35 Test Item Value Reference Range Interpretation Comments Lactate, Art (test code = 2.1 mmol/L 0.5-2.2 2874) BRANDI (test code = BRANDI) Brewery Worker ID - HIEN M Lab Interpretation (test Normal code = 73104-0) [facility] CenterLactic Acid, [id number] 18:40:35 Test Item Value Reference Range Interpretation Comments Lactate, Art (test code = 2.1 mmol/L 0.5-2.2 2874) BRANDI (test code = BRANDI) Brewery Worker ID - HIEN M Lab Interpretation (test Normal code = 37705-3) [facility] CenterLactic Acid, [id number] 18:40:35 Test Item Value Reference Range Interpretation Comments Lactate, Art (test code = 2.1 mmol/L 0.5-2.2 2874) BRANDI (test code = BRANDI) Brewery Worker ID - HIEN M Lab Interpretation (test Normal code = 88908-2) [facility] Acid, [id number] 18:40:35 Test Item Value Reference Range Interpretation Comments Lactate, Art (test code = 2.1 mmol/L 0.5-2.2 2874) BRANDI (test code = BRANDI) Brewery Worker ID - HIEN Lab Interpretation (test Normal code = 57897-8) [facility] Acid, [id number] 18:40:35 Test Item Value Reference Range Interpretation Comments Lactate, Art (test code = 2.1 mmol/L 0.5-2.2 2874) BRANDI (test code = BRANDI) Brewery Worker ID - [facility] Lab Interpretation (test Normal code = 69046-6) [facility] CenterLactic Acid, [id number] 18:40:35 Test Item Value Reference Range Interpretation Comments Lactate, Art (test code = 2.1 mmol/L 0.5-2.2 2874) BRANDI (test code = BRANDI) Brewery Worker ID - [facility] Lab Interpretation (test Normal code = 74756-4) [facility] CenterLactic Acid, [id number] 18:40:35 Test Item Value Reference Range Interpretation Comments Lactate, Art (test code = 2.1 mmol/L 0.5-2.2 2874) BRANDI (test code = BRANDI) Brewery Worker ID - HIEN Lab Interpretation (test Normal code = 28401-5) [facility] CenterLactic Acid, [id number] 18:40:35 Test Item Value Reference Range Interpretation Comments Lactate, Art (test code = 2.1 mmol/L 0.5-2.2 2874) BRANDI (test code = BRANDI) Brewery Worker ID - [facility] Lab Interpretation (test Normal code = 47432-7) [facility] CenterLactic Acid, [id number] 18:40:35 Test Item Value Reference Range Interpretation Comments Lactate, Art (test code = 2.1 mmol/L 0.5-2.2 2874) BRANDI (test code = BRANDI) Brewery Worker ID - HIEN Lab Interpretation (test Normal code = 78736-9) [facility] CenterLACTIC ACID, [id number] 18:40:35 Test Item Value Reference Range Interpretation Comments LACTATE BLOOD ARTERIAL (2) 2.1 mmol/L 0.5-2.2 (BEAKER) (test code = 2874) Brewery Worker ID Bassam [id number] 18:38:33 Test Item Value Reference Range Interpretation Comments PARTIAL THROMBOPLASTIN TIME 37.2 seconds 22.5-36.0 H (BEAKER) (test code = 760) PROTHROMBIN [id number] 18:37:33 Test Item Value Reference Range Interpretation Comments PROTIME (BEAKER) 16.6 seconds 11.9-14.2 H (test code = 759) INR (BEAKER) (test 1.37 See_Comment [Automat ed message] code = 370) The system Pixel Qi generated this result transmitted ref erence range: [...] 0-0 (test code = 413) HGB/HCT (H&H)-Stat [id number] 16:13:19 Test Item Value Reference Range Interpretation Comments Hemoglobin (test code = 10.6 See_Comment L [Au tomated message] 786-4) The system Pixel Qi generated this result transmitted ref erence range: 12.0 - 1 5.0 GM/DL. The refe rence range was not u sed to interpret this result as normal/abnor mal. Hematocrit (test code = 31.0 % 36.0-45.0 L 4544-3) Lab Interpretation (test Abnormal code = 70920-0) [facility]HGB[facility]HCT (H&H)-Stat [id number] 16:13:19 Test Item Value Reference Range Interpretation Comments Hemoglobin (test code = 10.6 See_Comment L [Au tomated message] 786-4) The system Pixel Qi generated this result transmitted ref erence range: 12.0 - 1 5.0 GM/DL. The refe rence range was not u sed to interpret this result as normal/abnor mal. Hematocrit (test code = 31.0 % 36.0-45.0 L 4544-3) Lab Interpretation (test Abnormal code = 54179-2) [facility]HCT ([facility]&H)-Stat [id number] 16:13:19 Test Item Value Reference Range Interpretation Comments Hemoglobin (test code = 10.6 See_Comment L [Au tomated message] 786-4) The system Pixel Qi generated this result transmitted ref erence range: 12.0 - 1 5.0 GM/DL. The refe rence range was not u sed to interpret this result as normal/abnor mal. Hematocrit (test code = 31.0 % 36.0-45.0 L 4544-3) Lab Interpretation (test Abnormal code = 02730-3) [facility] ([facility]H)-Stat [id number] 16:13:19 Test Item Value Reference Range Interpretation Comments Hemoglobin (test code = 10.6 See_Comment L [Au tomated message] 786-4) The system Pixel Qi generated this result transmitted ref erence range: 12.0 - 1 5.0 GM/DL. The refe rence range was not u sed to interpret this result as normal/abnor mal. Hematocrit (test code = 31.0 % 36.0-45.0 L 4544-3) Lab Interpretation (test Abnormal code = 61239-1) [facility]CT ([facility]&H)-Stat [id number] 16:13:19 Test Item Value Reference Range Interpretation Comments Hemoglobin (test code = 10.6 See_Comment L [Au tomated message] 786-4) The system Pixel Qi generated this result transmitted ref erence range: 12.0 - 1 5.0 GM/DL. The refe rence range was not u sed to interpret this result as normal/abnor mal. Hematocrit (test code = 31.0 % 36.0-45.0 L 4544-3) Lab Interpretation (test Abnormal code = 70441-7) [facility]HCT ([facility]&H)-Stat [id number] 16:13:19 Test Item Value Reference Range Interpretation Comments Hemoglobin (test code = 10.6 See_Comment L [Au tomated message] 786-4) The system Pixel Qi generated this result transmitted ref erence range: 12.0 - 1 5.0 GM/DL. The refe rence range was not u sed to interpret this result as normal/abnor mal. Hematocrit (test code = 31.0 % 36.0-45.0 L 4544-3) Lab Interpretation (test Abnormal code = 15401-8) [facility]HGB[facility]HCT (H&H)-Stat [id number] 16:13:19 Test Item Value Reference Range Interpretation Comments Hemoglobin (test code = 10.6 See_Comment L [Au tomated message] 786-4) The system Pixel Qi generated this result transmitted ref erence range: 12.0 - 1 5.0 GM/DL. The refe rence range was not u sed to interpret this result as normal/abnor mal. Hematocrit (test code = 31.0 % 36.0-45.0 L 4544-3) Lab Interpretation (test Abnormal code = 78539-9) [facility]HCT ([facility]&H)-Stat [id number] 16:13:19 Test Item Value Reference Range Interpretation Comments Hemoglobin (test code = 10.6 See_Comment L [Au tomated message] 786-4) The system Pixel Qi generated this result transmitted ref erence range: 12.0 - 1 5.0 GM/DL. The refe rence range was not u sed to interpret this result as normal/abnor mal. Hematocrit (test code = 31.0 % 36.0-45.0 L 4544-3) Lab Interpretation (test Abnormal code = 84750-9) [facility]CT ([facility]H)-Stat [id number] 16:13:19 Test Item Value Reference Range Interpretation Comments Hemoglobin (test code = 10.6 See_Comment L [Au tomated message] 786-4) The system Pixel Qi generated this result transmitted ref erence range: 12.0 - 1 5.0 GM/DL. The refe rence range was not u sed to interpret this result as normal/abnor mal. Hematocrit (test code = 31.0 % 36.0-45.0 L 4544-3) Lab Interpretation (test Abnormal code = 00166-6) [facility] ([facility])-Stat [id number] 16:13:19 Test Item Value Reference Range Interpretation Comments Hemoglobin (test code = 10.6 See_Comment L [Au tomated message] 786-4) The system Pixel Qi generated this result transmitted ref erence range: 12.0 - 1 5.0 GM/DL. The refe rence range was not u sed to interpret this result as normal/abnor mal. Hematocrit (test code = 31.0 % 36.0-45.0 L 4544-3) Lab Interpretation (test Abnormal code = 83900-0) [facility] ([facility])-Stat [id number] 16:13:19 Test Item Value Reference Range Interpretation Comments Hemoglobin (test code = 10.6 See_Comment L [Au tomated message] 786-4) The system Pixel Qi generated this result transmitted ref erence range: 12.0 - 1 5.0 GM/DL. The refe rence range was not u sed to interpret this result as normal/abnor mal. Hematocrit (test code = 31.0 % 36.0-45.0 L 4544-3) Lab Interpretation (test Abnormal code = 03287-1) [facility] ([facility]Stat [id number] 16:13:19 Test Item Value Reference Range Interpretation Comments Hemoglobin (test code = 10.6 See_Comment L [Au tomated message] 786-4) The system Pixel Qi generated this result transmitted ref erence range: 12.0 - 1 5.0 GM/DL. The refe rence range was not u sed to interpret this result as normal/abnor mal. Hematocrit (test code = 31.0 % 36.0-45.0 L 4544-3) Lab Interpretation (test Abnormal code = 60986-0) [facility] ([facility])-Stat [id number] 16:13:19 Test Item Value Reference Range Interpretation Comments Hemoglobin (test code = 10.6 See_Comment L [Au tomated message] 786-4) The system Pixel Qi generated this result transmitted ref erence range: 12.0 - 1 5.0 GM/DL. The refe rence range was not u sed to interpret this result as normal/abnor mal. Hematocrit (test code = 31.0 % 36.0-45.0 L 4544-3) Lab Interpretation (test Abnormal code = 55331-7) [facility] ([facility]H)-Stat [id number] 16:13:19 Test Item Value Reference Range Interpretation Comments Hemoglobin (test code = 10.6 See_Comment L [Au tomated message] 786-4) The system Pixel Qi generated this result transmitted ref erence range: 12.0 - 1 5.0 GM/DL. The refe rence range was not u sed to interpret this result as normal/abnor mal. Hematocrit (test code = 31.0 % 36.0-45.0 L 4544-3) Lab Interpretation (test Abnormal code = 62028-6) [facility] ([facility])-Stat [id number] 16:13:19 Test Item Value Reference Range Interpretation Comments Hemoglobin (test code = 10.6 See_Comment L [Au tomated message] 786-4) The system Pixel Qi generated this result transmitted ref erence range: 12.0 - 1 5.0 GM/DL. The refe rence range was not u sed to interpret this result as normal/abnor mal. Hematocrit (test code = 31.0 % 36.0-45.0 L 4544-3) Lab Interpretation (test Abnormal code = 86510-7) [facility] ([facility])-Stat [id number] 16:13:19 Test Item Value Reference Range Interpretation Comments Hemoglobin (test code = 10.6 See_Comment L [Au tomated message] 786-4) The system Pixel [employer] generated this result transmitted ref erence range: 12.0 - 1 5.0 GM/DL. The refe rence range was not u sed to interpret this result as normal/abnor mal. Hematocrit (test code = 31.0 % 36.0-45.0 L 4544-3) Lab Interpretation (test Abnormal code = 40255-3) [facility] ([facility])-Stat [id number] 16:13:19 Test Item Value Reference Range Interpretation Comments Hemoglobin (test code = 10.6 See_Comment L [Au tomated message] 786-4) The system Pixel [employer] generated this result transmitted ref erence range: 12.0 - 1 5.0 GM/DL. The refe rence range was not u sed to interpret this result as normal/abnor mal. Hematocrit (test code = 31.0 % 36.0-45.0 L 4544-3) Lab Interpretation (test Abnormal code = 35888-7) [facility] ([facility])-Stat [id number] 16:13:19 Test Item Value Reference Range Interpretation Comments Hemoglobin (test code = 10.6 See_Comment L [Au tomated message] 786-4) The system Pixel Qi generated this result transmitted ref erence range: 12.0 - 1 5.0 GM/DL. The refe rence range was not u sed to interpret this result as normal/abnor mal. Hematocrit (test code = 31.0 % 36.0-45.0 L 4544-3) Lab Interpretation (test Abnormal code = 35256-5) [facility]CT ([facility]&H) - STAT [id number] 16:13:19 Test Item Value Reference Range Interpretation Comments HEMOGLOBIN (BEAKER) (test code = 10.6 GM/DL 12.0-15.0 L 410) HEMATOCRIT (BEAKER) (test code = 31.0 % 36.0-45.0 L 411) Glucose-Stat [id number] 16:13:18 Test Item Value Reference Range Interpretation Comments Glucose (test code = 2345-7) 205 mg/dL 70-110 H Lab Interpretation (test code = Abnormal 41340-3) [facility] [id number] 16:13:18 Test Item Value Reference Range Interpretation Comments Sodium (test code = 2951-2) 134 meq/L 136-145 L Lab Interpretation (test code = Abnormal 27028-3) [facility] CenterGlucose-Stat [id number] 16:13:18 Test Item Value Reference Range Interpretation Comments Glucose (test code = 2345-7) 205 mg/dL 70-110 H Lab Interpretation (test code = Abnormal 16922-1) [facility]Stat [id number] 16:13:18 Test Item Value Reference Range Interpretation Comments Sodium (test code = 2951-2) 134 meq/L 136-145 L Lab Interpretation (test code = Abnormal 52598-6) [facility] CenterGlucose-Stat [id number] 16:13:18 Test Item Value Reference Range Interpretation Comments Glucose (test code = 2345-7) 205 mg/dL 70-110 H Lab Interpretation (test code = Abnormal 85243-5) [facility]Stat [id number] 16:13:18 Test Item Value Reference Range Interpretation Comments Sodium (test code = 2951-2) 134 meq/L 136-145 L Lab Interpretation (test code = Abnormal 25826-6) [facility] CenterGlucose-Stat [id number] 16:13:18 Test Item Value Reference Range Interpretation Comments Glucose (test code = 2345-7) 205 mg/dL 70-110 H Lab Interpretation (test code = Abnormal 62542-1) [facility]Stat [id number] 16:13:18 Test Item Value Reference Range Interpretation Comments Sodium (test code = 2951-2) 134 meq/L 136-145 L Lab Interpretation (test code = Abnormal 84757-5) [facility] CenterGlucose-Stat [id number] 16:13:18 Test Item Value Reference Range Interpretation Comments Glucose (test code = 2345-7) 205 mg/dL 70-110 H Lab Interpretation (test code = Abnormal 33713-1) [facility] Na-Stat [id number] 16:13:18 Test Item Value Reference Range Interpretation Comments Sodium (test code = 2951-2) 134 meq/L 136-145 L Lab Interpretation (test code = Abnormal 36823-4) [facility]Glucose-Stat [id number] 16:13:18 Test Item Value Reference Range Interpretation Comments Glucose (test code = 2345-7) 205 mg/dL 70-110 H Lab Interpretation (test code = Abnormal 24770-1) [facility] Na[facility]Stat [id number] 16:13:18 Test Item Value Reference Range Interpretation Comments Sodium (test code = 2951-2) 134 meq/L 136-145 L Lab Interpretation (test code = Abnormal 89978-6) [facility] CenterGlucose-Stat [id number] 16:13:18 Test Item Value Reference Range Interpretation Comments Glucose (test code = 2345-7) 205 mg/dL 70-110 H Lab Interpretation (test code = Abnormal 91828-4) [facility] Na-Stat [id number] 16:13:18 Test Item Value Reference Range Interpretation Comments Sodium (test code = 2951-2) 134 meq/L 136-145 L Lab Interpretation (test code = Abnormal 41454-6) [facility] CenterGlucose-Stat [id number] 16:13:18 Test Item Value Reference Range Interpretation Comments Glucose (test code = 2345-7) 205 mg/dL 70-110 H Lab Interpretation (test code = Abnormal 93594-7) [facility] Na[facility]Stat [id number] 16:13:18 Test Item Value Reference Range Interpretation Comments Sodium (test code = 2951-2) 134 meq/L 136-145 L Lab Interpretation (test code = Abnormal 50326-4) [facility] CenterGlucose-Stat [id number] 16:13:18 Test Item Value Reference Range Interpretation Comments Glucose (test code = 2345-7) 205 mg/dL 70-110 H Lab Interpretation (test code = Abnormal 40827-5) [facility] [id number] 16:13:18 Test Item Value Reference Range Interpretation Comments Sodium (test code = 2951-2) 134 meq/L 136-145 L Lab Interpretation (test code = Abnormal 71637-4) [facility] [id number] 16:13:18 Test Item Value Reference Range Interpretation Comments Glucose (test code = 2345-7) 205 mg/dL 70-110 H Lab Interpretation (test code = Abnormal 62612-4) [facility] [id number] 16:13:18 Test Item Value Reference Range Interpretation Comments Sodium (test code = 2951-2) 134 meq/L 136-145 L Lab Interpretation (test code = Abnormal 98963-7) [facility] [id number] 16:13:18 Test Item Value Reference Range Interpretation Comments Glucose (test code = 2345-7) 205 mg/dL 70-110 H Lab Interpretation (test code = Abnormal 45289-3) [facility] Pxt4823-59-73 16:13:18 Test Item Value Reference Range Interpretation Comments Sodium (test code = 2951-2) 134 meq/L 136-145 L Lab Interpretation (test code = Abnormal 67266-6) [facility]Gl[facility] [id number] 16:13:18 Test Item Value Reference Range Interpretation Comments Glucose (test code = 2345-7) 205 mg/dL 70-110 H Lab Interpretation (test code = Abnormal 40855-1) [facility] [id number] 16:13:18 Test Item Value Reference Range Interpretation Comments Sodium (test code = 2951-2) 134 meq/L 136-145 L Lab Interpretation (test code = Abnormal 54464-4) [facility] [id number] 16:13:18 Test Item Value Reference Range Interpretation Comments Glucose (test code = 2345-7) 205 mg/dL 70-110 H Lab Interpretation (test code = Abnormal 97077-5) [facility] Na-Stat [id number] 16:13:18 Test Item Value Reference Range Interpretation Comments Sodium (test code = 2951-2) 134 meq/L 136-145 L Lab Interpretation (test code = Abnormal 35373-3) [facility] Fbj4725-38-92 16:13:18 Test Item Value Reference Range Interpretation Comments Glucose (test code = 2345-7) 205 mg/dL 70-110 H Lab Interpretation (test code = Abnormal 83758-2) [facility] [id number] 16:13:18 Test Item Value Reference Range Interpretation Comments Sodium (test code = 2951-2) 134 meq/L 136-145 L Lab Interpretation (test code = Abnormal 24206-5) [facility] [id number] 16:13:18 Test Item Value Reference Range Interpretation Comments Glucose (test code = 2345-7) 205 mg/dL 70-110 H Lab Interpretation (test code = Abnormal 56778-4) [facility] [id number] 16:13:18 Test Item Value Reference Range Interpretation Comments Sodium (test code = 2951-2) 134 meq/L 136-145 L Lab Interpretation (test code = Abnormal 42828-0) [facility]Gl[facility] [id number] 16:13:18 Test Item Value Reference Range Interpretation Comments Glucose (test code = 2345-7) 205 mg/dL 70-110 H Lab Interpretation (test code = Abnormal 24905-8) [facility] [id number] 16:13:18 Test Item Value Reference Range Interpretation Comments Sodium (test code = 2951-2) 134 meq/L 136-145 L Lab Interpretation (test code = Abnormal 97891-6) [facility] [id number] 16:13:18 Test Item Value Reference Range Interpretation Comments Glucose (test code = 2345-7) 205 mg/dL 70-110 H Lab Interpretation (test code = Abnormal 89888-6) [facility] [id number] 16:13:18 Test Item Value Reference Range Interpretation Comments Sodium (test code = 2951-2) 134 meq/L 136-145 L Lab Interpretation (test code = Abnormal 61746-2) [facility]Gl[facility] Lik5681-44-29 16:13:18 Test Item Value Reference Range Interpretation Comments Glucose (test code = 2345-7) 205 mg/dL 70-110 H Lab Interpretation (test code = Abnormal 91852-7) [facility] [id number] 16:13:18 Test Item Value Reference Range Interpretation Comments Sodium (test code = 2951-2) 134 meq/L 136-145 L Lab Interpretation (test code = Abnormal 16758-0) [facility] NA-STAT [id number] 16:13:18 Test Item Value Reference Range Interpretation Comments SODIUM (BEAKER) (test code = 381) 134 meq/L 136-145 L GLUCOSE-STAT [id number] 16:13:18 Test Item Value Reference Range Interpretation Comments GLUCOSE RANDOM (BEAKER) (test code 205 mg/dL 70-110 H = 652) BLOOD GAS, [id number] 16:13:17 Test Item Value Reference Range Interpretation [...] (BEAKER) (test code = 1819) 60.0 Potassium-Stat [id number] 16:11:46 Test Item Value Reference Range Interpretation Comments Potassium (test code = 2823-3) 4.5 meq/L 3.6-5.5 Lab Interpretation (test code = Normal 79046-8) [facility] [id number] 16:11:46 Test Item Value Reference Range Interpretation Comments Potassium (test code = 2823-3) 4.5 meq/L 3.6-5.5 Lab Interpretation (test code = Normal 76667-8) [facility] [id number] 16:11:46 Test Item Value Reference Range Interpretation Comments Potassium (test code = 2823-3) 4.5 meq/L 3.6-5.5 Lab Interpretation (test code = Normal 66826-9) [facility] [id number] 16:11:46 Test Item Value Reference Range Interpretation Comments Potassium (test code = 2823-3) 4.5 meq/L 3.6-5.5 Lab Interpretation (test code = Normal 53819-7) [facility] Uif0925-08-57 16:11:46 Test Item Value Reference Range Interpretation Comments Potassium (test code = 2823-3) 4.5 meq/L 3.6-5.5 Lab Interpretation (test code = Normal 12510-6) [facility] [id number] 16:11:46 Test Item Value Reference Range Interpretation Comments Potassium (test code = 2823-3) 4.5 meq/L 3.6-5.5 Lab Interpretation (test code = Normal 14365-2) [facility] [id number] 16:11:46 Test Item Value Reference Range Interpretation Comments Potassium (test code = 2823-3) 4.5 meq/L 3.6-5.5 Lab Interpretation (test code = Normal 19641-1) [facility] [id number] 16:11:46 Test Item Value Reference Range Interpretation Comments Potassium (test code = 2823-3) 4.5 meq/L 3.6-5.5 Lab Interpretation (test code = Normal 41733-5) [facility] [id number] 16:11:46 Test Item Value Reference Range Interpretation Comments Potassium (test code = 2823-3) 4.5 meq/L 3.6-5.5 Lab Interpretation (test code = Normal 10918-8) [facility] [id number] 16:11:46 Test Item Value Reference Range Interpretation Comments Potassium (test code = 2823-3) 4.5 meq/L 3.6-5.5 Lab Interpretation (test code = Normal 58982-3) [facility] Sct6875-65-59 16:11:46 Test Item Value Reference Range Interpretation Comments Potassium (test code = 2823-3) 4.5 meq/L 3.6-5.5 Lab Interpretation (test code = Normal 41462-6) [facility] [id number] 16:11:46 Test Item Value Reference Range Interpretation Comments Potassium (test code = 2823-3) 4.5 meq/L 3.6-5.5 Lab Interpretation (test code = Normal 97805-8) [facility] Wez9469-28-21 16:11:46 Test Item Value Reference Range Interpretation Comments Potassium (test code = 2823-3) 4.5 meq/L 3.6-5.5 Lab Interpretation (test code = Normal 96065-6) [facility] [id number] 16:11:46 Test Item Value Reference Range Interpretation Comments Potassium (test code = 2823-3) 4.5 meq/L 3.6-5.5 Lab Interpretation (test code = Normal 89395-3) [facility] [id number] 16:11:46 Test Item Value Reference Range Interpretation Comments Potassium (test code = 2823-3) 4.5 meq/L 3.6-5.5 Lab Interpretation (test code = Normal 86753-0) [facility] [id number] 16:11:46 Test Item Value Reference Range Interpretation Comments Potassium (test code = 2823-3) 4.5 meq/L 3.6-5.5 Lab Interpretation (test code = Normal 79254-6) [facility] [id number] 16:11:46 Test Item Value Reference Range Interpretation Comments Potassium (test code = 2823-3) 4.5 meq/L 3.6-5.5 Lab Interpretation (test code = Normal 78900-7) [facility] [id number] 16:11:46 Test Item Value Reference Range Interpretation Comments Potassium (test code = 2823-3) 4.5 meq/L 3.6-5.5 Lab Interpretation (test code = Normal 34300-4) [facility]SI[facility] [id number] 16:11:46 Test Item Value Reference Range Interpretation Comments POTASSIUM (BEAKER) (test code = 4.5 meq/L 3.6-5.5 379) CALCIUM, [id number] 16:11:08 Test Item Value Reference Range Interpretation Comments CALCIUM IONIZED (BEAKER) (test 1.16 mmol/L 1.12-1.27 code = 698) PH, BLOOD (BEAKER) (test code = 7.44 1810) Manual Eutivdompcgt2839-13-89 16:00:23 Test Item Value Reference Range Interpretation [...] = 3438) BRANDI (test code = BRANDI) Brewery Worker ID - Liza Lu comments: Slide comments: Lab Interpretation (test Abnormal code = 97707-6) [facility] Pcgqokhfihdr7043-74-36 16:00:23 Test Item Value Reference Range Interpretation [...] Poikilocytes (test code = 1+ few 966) Hepler Cells (test code = 1+ few 474) Artifact (test code = Present 3432) Platelet Conc (test code Decreased = 3438) BRANDI (test code = BRANDI) Brewery Worker ID - Liza Lu comments: Slide comments: Lab Interpretation (test Abnormal code = 53975-1) [facility] Ajmcssepypoq3756-08-57 16:00:23 Test Item Value Reference Range Interpretation [...] = 3438) BRANDI (test code = BRANDI) Brewery Worker ID - Liza Lu comments: Slide comments: Lab Interpretation (test Abnormal code = 60789-6) [facility] CenterManual Lsmipumksfeb4122-69-58 16:00:23 Test Item Value Reference Range Interpretation [...] Poikilocytes (test code = 1+ few 966) Hepler Cells (test code = 1+ few 474) Artifact (test code = Present 3432) Platelet Conc (test code Decreased = 3438) BRANDI (test code = BRANDI) Brewery Worker ID - Liza Lu comments: Slide comments: Lab Interpretation (test Abnormal code = 15316-3) [facility] Pxtasyixguun8215-87-11 16:00:23 Test Item Value Reference Range Interpretation [...] = 3438) BRANDI (test code = BRANDI) Brewery Worker ID - Liza Lu comments: Slide comments: Lab Interpretation (test Abnormal code = 92633-7) [facility] Qeymyswkpmxh4108-27-86 16:00:23 Test Item Value Reference Range Interpretation [...] Poikilocytes (test code = 1+ few 966) Hepler Cells (test code = 1+ few 474) Artifact (test code = Present 3432) Platelet Conc (test code Decreased = 3438) BRANDI (test code = BRANDI) Brewery Worker ID - Liza Lu comments: Slide comments: Lab Interpretation (test Abnormal code = 17480-4) [facility] Hjzzfyqczoco3116-42-45 16:00:23 Test Item Value Reference Range Interpretation [...] Poikilocytes (test code = 1+ few 966) Hepler Cells (test code = 1+ few 474) Artifact (test code = Present 3432) Platelet Conc (test code Decreased = 3438) BRANDI (test code = BRANDI) Brewery Worker ID - Liza Lu comments: Slide comments: Lab Interpretation (test Abnormal code = 38612-1) [facility] Mkhrzukjlwbd6756-04-18 16:00:23 Test Item Value Reference Range Interpretation [...] = 3438) BRANDI (test code = BRANDI) Brewery Worker ID - Liza Tabitha comments: Slide comments: Lab Interpretation (test Abnormal code = 06418-5) [facility] Hsnpwvbaxldw7363-38-08 16:00:23 Test Item Value Reference Range Interpretation [...] = 3438) BRANDI (test code = BRANDI) Brewery Worker ID - Liza Lu comments: Slide comments: Lab Interpretation (test Abnormal code = 56727-0) [facility] Osfxcgonscur7686-92-87 16:00:23 Test Item Value Reference Range Interpretation [...] Poikilocytes (test code = 1+ few 966) Hepler Cells (test code = 1+ few 474) Artifact (test code = Present 3432) Platelet Conc (test code Decreased = 3438) BRANDI (test code = BRANDI) Brewery Worker ID - Liza Lu comments: Slide comments: Lab Interpretation (test Abnormal code = 29737-3) [facility] Zojwygxvyerv6558-39-26 16:00:23 Test Item Value Reference Range Interpretation [...] Poikilocytes (test code = 1+ few 966) Hepler Cells (test code = 1+ few 474) Artifact (test code = Present 3432) Platelet Conc (test code Decreased = 3438) BRANDI (test code = BRANDI) Brewery Worker ID - Liza Lu comments: Slide comments: Lab Interpretation (test Abnormal code = 34882-4) [facility] Udiljelumbkn0567-23-65 16:00:23 Test Item Value Reference Range Interpretation [...] = 3438) BRANDI (test code = BRANDI) Brewery Worker ID - Liza Lu comments: Slide comments: Lab Interpretation (test Abnormal code = 74130-8) [facility] Gmlcbjvqxsol4131-51-75 16:00:23 Test Item Value Reference Range Interpretation [...] Poikilocytes (test code = 1+ few 966) Hepler Cells (test code = 1+ few 474) Artifact (test code = Present 3432) Platelet Conc (test code Decreased = 3438) BRANDI (test code = BRANDI) Brewery Worker ID - Liza Tabitha comments: Slide comments: Lab Interpretation (test Abnormal code = 38317-5) [facility] Dvuschzdexrp1872-87-14 16:00:23 Test Item Value Reference Range Interpretation [...] = 3438) BRANDI (test code = BRANDI) Brewery Worker ID - Liza Lu comments: Slide comments: Lab Interpretation (test Abnormal code = 32012-5) [facility] Olyzasfqvdbu6521-46-68 16:00:23 Test Item Value Reference Range Interpretation [...] Poikilocytes (test code = 1+ few 966) Hepler Cells (test code = 1+ few 474) Artifact (test code = Present 3432) Platelet Conc (test code Decreased = 3438) BRANDI (test code = BRANDI) Brewery Worker ID - Liza Lu comments: Slide comments: Lab Interpretation (test Abnormal code = 22767-9) [facility] Ddojxrwxwruc1546-21-01 16:00:23 Test Item Value Reference Range Interpretation [...] Poikilocytes (test code = 1+ few 966) Hepler Cells (test code = 1+ few 474) Artifact (test code = Present 3432) Platelet Conc (test code Decreased = 3438) BRANDI (test code = BRANDI) Brewery Worker ID - Liza Tabitha comments: Slide comments: Lab Interpretation (test Abnormal code = 64328-9) [facility] Tduxheviqbge5921-53-54 16:00:23 Test Item Value Reference Range Interpretation [...] = 3438) BRANDI (test code = BRANDI) Brewery Worker ID - Liza Lu comments: Slide comments: Lab Interpretation (test Abnormal code = 76074-1) [facility] Eiqujtcmxfgd7669-70-66 16:00:23 Test Item Value Reference Range Interpretation [...] = 3438) BRANDI (test code = BRANDI) Brewery Worker ID - Liza Lu comments: Slide comments: Lab Interpretation (test Abnormal code = 73289-7) [facility](CELLAVISION MANUAL DIFF)2021-06-18 16:00:23 Test Item Value [...] CONCENTRATION Decreased (CELLAVISION)(BEAKER) (test code = 3438) Brewery Worker ID - Liza Lu comments: Slide comments:RAD, CHEST, 1 VIEW, NON [id number] 15:58:00Reason for exam:->Post-opShould this be performed at the bedside?->Yes [facility] : 1955 Sex: FFINAL REPORT CHEST AP PORTABLE COMPARISON STUDY: 06/10/2021 History provided: Postopevaluation ET tube in place with tip midway between clavicles and marlon. NG tip in the stomach. Right jugular [place] catheter with tip in the right main pulmonary artery. Chest tubes with no pneumothorax. Mild right basilar atelectasis with trace right pleural effusion. Lungs otherwise grossly clear and vascularity normal. Signed: Wero Alvarezeport Verified Date/Time: 06/18/2021 15:58:54 Reading Location: [facility] Diagnostic Imaging Reading Room - [facility] 1310.12 C METABOLIC [id number] 15:57:50 Test Item Value Reference Range Interpretation [...] S NOT APPLICABLE FOR DIALYSIS PATIEN TS. Brewery Worker ID - HIEN ZQaolzrejm-JZIN0297-31-17 15:57:19 Test Item Value Reference Range Interpretation Comments Potassium (test code = 2823-3) 4.8 meq/L 3.5-5.1 Lab Interpretation (test code = Normal 00673-7) [facility]assium-TNQI4693-67-14 15:57:19 Test Item Value Reference Range Interpretation Comments Potassium (test code = 2823-3) 4.8 meq/L 3.5-5.1 Lab Interpretation (test code = Normal 66593-9) [facility]2022-03-17 15:57:19 Test Item Value Reference Range Interpretation Comments Potassium (test code = 2823-3) 4.8 meq/L 3.5-5.1 Lab Interpretation (test code = Normal 55331-5) [facility]2022-03-17 15:57:19 Test Item Value Reference Range Interpretation Comments Potassium (test code = 2823-3) 4.8 meq/L 3.5-5.1 Lab Interpretation (test code = Normal 80044-1) [facility]2022-03-17 15:57:19 Test Item Value Reference Range Interpretation Comments Potassium (test code = 2823-3) 4.8 meq/L 3.5-5.1 Lab Interpretation (test code = Normal 71943-1) [facility]2022-03-17 15:57:19 Test Item Value Reference Range Interpretation Comments Potassium (test code = 2823-3) 4.8 meq/L 3.5-5.1 Lab Interpretation (test code = Normal 64317-6) [facility]2022-03-17 15:57:19 Test Item Value Reference Range Interpretation Comments Potassium (test code = 2823-3) 4.8 meq/L 3.5-5.1 Lab Interpretation (test code = Normal 69566-2) [facility]2022-03-17 15:57:19 Test Item Value Reference Range Interpretation Comments Potassium (test code = 2823-3) 4.8 meq/L 3.5-5.1 Lab Interpretation (test code = Normal 55258-7) [facility]2022-03-17 15:57:19 Test Item Value Reference Range Interpretation Comments Potassium (test code = 2823-3) 4.8 meq/L 3.5-5.1 Lab Interpretation (test code = Normal 82450-3) [facility]2022-03-17 15:57:19 Test Item Value Reference Range Interpretation Comments Potassium (test code = 2823-3) 4.8 meq/L 3.5-5.1 Lab Interpretation (test code = Normal 07592-1) [facility]2022-03-17 15:57:19 Test Item Value Reference Range Interpretation Comments Potassium (test code = 2823-3) 4.8 meq/L 3.5-5.1 Lab Interpretation (test code = Normal 17785-8) [facility]2022-03-17 15:57:19 Test Item Value Reference Range Interpretation Comments Potassium (test code = 2823-3) 4.8 meq/L 3.5-5.1 Lab Interpretation (test code = Normal 25907-7) [facility]2022-03-17 15:57:19 Test Item Value Reference Range Interpretation Comments Potassium (test code = 2823-3) 4.8 meq/L 3.5-5.1 Lab Interpretation (test code = Normal 96915-1) [facility]2022-03-17 15:57:19 Test Item Value Reference Range Interpretation Comments Potassium (test code = 2823-3) 4.8 meq/L 3.5-5.1 Lab Interpretation (test code = Normal 16809-1) [facility]2022-03-17 15:57:19 Test Item Value Reference Range Interpretation Comments Potassium (test code = 2823-3) 4.8 meq/L 3.5-5.1 Lab Interpretation (test code = Normal 95556-1) [facility]2022-03-17 15:57:19 Test Item Value Reference Range Interpretation Comments Potassium (test code = 2823-3) 4.8 meq/L 3.5-5.1 Lab Interpretation (test code = Normal 97619-4) [facility]2022-03-17 15:57:19 Test Item Value Reference Range Interpretation Comments Potassium (test code = 2823-3) 4.8 meq/L 3.5-5.1 Lab Interpretation (test code = Normal 49838-2) [facility] 15:57:19 Test Item Value Reference Range Interpretation Comments Potassium (test code = 2823-3) 4.8 meq/L 3.5-5.1 Lab Interpretation (test code = Normal 03025-6) [facility] 15:57:19 Test Item Value Reference Range Interpretation Comments POTASSIUM (BEAKER) (test code = 4.8 meq/L 3.5-5.1 379) JFVTXVLCNI0279-23-71 15:57:19 Test Item Value Reference Range Interpretation Comments PHOSPHORUS (BEAKER) (test code = 4.9 mg/dL 2.3-4.7 H 604) Brewery Worker ID - HIEN GVOKWJYYTK3973-01-99 15:57:18 Test Item Value Reference Range Interpretation Comments MAGNESIUM (BEAKER) (test code = 2.6 mg/dL 1.6-2.6 627) Brewery Worker ID - HIEN MPrepare qvqqmp6641-35-46 15:44:00 Test Item Value Reference Range Interpretation Comments Unit ABO (test code = O Neg 1054165) UNIT NUMBER (test code = [id number] 934-0) Status (test code = RETURNED FROM ISSUE 4569695) Blood Bank Product (test FFP code = 2263) PRODUCT CODE (test code = [id number] 933-2) [facility] cfezjb8761-09-72 15:44:00 Test Item Value Reference Range Interpretation Comments Unit ABO (test code = O Neg 8925779) UNIT NUMBER (test code = [id number] 934-0) Status (test code = RETURNED FROM ISSUE 8641524) Blood Bank Product (test FFP code = 2263) PRODUCT CODE (test code = [id number] 933-2) [facility] ksrbaa2932-85-05 15:44:00 Test Item Value Reference Range Interpretation Comments Unit ABO (test code = O Neg 3715253) UNIT NUMBER (test code = [id number] 934-0) Status (test code = RETURNED FROM ISSUE 3609527) Blood Bank Product (test FFP code = 2263) PRODUCT CODE (test code = [id number] 933-2) [facility] youyzn7249-85-46 15:44:00 Test Item Value Reference Range Interpretation Comments Unit ABO (test code = O Neg 1327152) UNIT NUMBER (test code = [id number] 934-0) Status (test code = RETURNED FROM ISSUE 6118096) Blood Bank Product (test FFP code = 2263) PRODUCT CODE (test code = Q2721U76 933-2) [facility] tnglij3219-75-73 15:44:00 Test Item Value Reference Range Interpretation Comments Unit ABO (test code = O Neg 6134733) UNIT NUMBER (test code = [id number] 934-0) Status (test code = RETURNED FROM ISSUE 15100613) Blood Bank Product (test FFP code = 2263) PRODUCT CODE (test code = [id number] 933-2) [facility] yvgjhe4707-81-13 15:44:00 Test Item Value Reference Range Interpretation Comments Unit ABO (test code = O Neg 4198265) UNIT NUMBER (test code = [id number] 934-0) Status (test code = RETURNED FROM ISSUE 4076836) Blood Bank Product (test FFP code = 2263) PRODUCT CODE (test code = [id number] 933-2) [facility] givfty9259-79-39 15:44:00 Test Item Value Reference Range Interpretation Comments Unit ABO (test code = O Neg 1427631) UNIT NUMBER (test code = [id number] 934-0) Status (test code = RETURNED FROM ISSUE 6168024) Blood Bank Product (test FFP code = 2263) PRODUCT CODE (test code = C9387U23 933-2) [facility] jkjkbw0320-54-17 15:44:00 Test Item Value Reference Range Interpretation Comments Unit ABO (test code = O Neg 7209376) UNIT NUMBER (test code = [id number] 934-0) Status (test code = RETURNED FROM ISSUE 3142523) Blood Bank Product (test FFP code = 2263) PRODUCT CODE (test code = C2539V96 933-2) [facility] pdmbtp2784-46-27 15:44:00 Test Item Value Reference Range Interpretation Comments Unit ABO (test code = O Neg 0630923) UNIT NUMBER (test code = [id number] 934-0) Status (test code = RETURNED FROM ISSUE 1655754) Blood Bank Product (test FFP code = 2263) PRODUCT CODE (test code = [id number] 933-2) [facility] banwfy2009-11-64 15:44:00 Test Item Value Reference Range Interpretation Comments Unit ABO (test code = O Neg 8603178) UNIT NUMBER (test code = [id number] 934-0) Status (test code = RETURNED FROM ISSUE 2315548) Blood Bank Product (test FFP code = 2263) PRODUCT CODE (test code = M4258P70 933-2) [facility] hktrcg2291-11-80 15:44:00 Test Item Value Reference Range Interpretation Comments Unit ABO (test code = O Neg 5637695) UNIT NUMBER (test code = [id number] 934-0) Status (test code = RETURNED FROM ISSUE 0799628) Blood Bank Product (test FFP code = 2263) PRODUCT CODE (test code = [id number] 933-2) [facility] mpztvi2925-55-38 15:44:00 Test Item Value Reference Range Interpretation Comments Unit ABO (test code = O Neg [id number]) UNIT NUMBER (test code = [id number] 934-0) Status (test code = RETURNED FROM ISSUE 3823507) Blood Bank Product (test FFP code = 2263) PRODUCT CODE (test code = T7548L16 933-2) [facility] [id number] 15:44:00 Test Item Value Reference Range Interpretation Comments Unit ABO (test code = O Neg 0074489) UNIT NUMBER (test code = [id number] 934-0) Status (test code = RETURNED FROM ISSUE 5526749) Blood Bank Product (test FFP code = 2263) PRODUCT CODE (test code = P9309T33 933-2) [facility] byvxke6975-35-61 15:44:00 Test Item Value Reference Range Interpretation Comments Unit ABO (test code = O Neg 1142870) UNIT NUMBER (test code = [id number] 934-0) Status (test code = RETURNED FROM ISSUE 8873686) Blood Bank Product (test FFP code = 2263) PRODUCT CODE (test code = G8823H96 933-2) [facility] [id number] 15:44:00 Test Item Value Reference Range Interpretation Comments Unit ABO (test code = O Neg 8235247) UNIT NUMBER (test code = [id number] 934-0) Status (test code = RETURNED FROM ISSUE 15100613) Blood Bank Product (test FFP code = 2263) PRODUCT CODE (test code = R6418B81 933-2) [facility] [id number] 15:44:00 Test Item Value Reference Range Interpretation Comments Unit ABO (test code = O Neg 0493819) UNIT NUMBER (test code = [id number] 934-0) Status (test code = RETURNED FROM ISSUE 7363860) Blood Bank Product (test FFP code = 2263) PRODUCT CODE (test code = K9066I96 933-2) [facility] [id number] 15:44:00 Test Item Value Reference Range Interpretation Comments Unit ABO (test code = O Neg [id number]) UNIT NUMBER (test code = [id number] 934-0) Status (test code = RETURNED FROM ISSUE 8879773) Blood Bank Product (test FFP code = 2263) PRODUCT CODE (test code = S7857D95 933-2) [facility] [id number] 15:44:00 Test Item Value Reference Range Interpretation Comments Unit ABO (test code = O Neg 9355890) UNIT NUMBER (test code = [id number] 934-0) Status (test code = RETURNED FROM ISSUE 1183238) Blood Bank Product (test FFP code = 2263) PRODUCT CODE (test code = I3821W59 933-2) [facility] Test Item Value Reference Range Interpretation Comments PARTIAL THROMBOPLASTIN TIME 37.6 seconds 22.5-36.0 H (BEAKER) (test code = 760) PROTHROMBIN TIME/[id number] 15:31:52 Test Item Value Reference Range Interpretation Comments PROTIME (BEAKER) 17.9 seconds 11.9-14.2 H (test code = 759) INR (BEAKER) (test 1.50 See_Comment [Automat ed message] code = 370) The system Pixel [employer] generated this result transmitted ref erence range: <=5.90. The reference range was not used to int erpret this result as normal/abnormal . RECOMMENDED COUMADIN/WARFARIN INR THERAPY RANGESSTANDARD DOSE: 2.0 - 3.0 Includes: PROPHYLAXIS for venous thrombosis, systemic embolization; TREATMENT for venous thrombosis and/or pulmonary embolus.HIGH RISK: Target INR is 2.5-3.5 for patients with mechanical heart valves.CBC with platelet count + automated [id number] 15:24:09 Test Item Value Reference Range Interpretation Comments WBC (test code = 6690-2) 16.2 See_Comment H [A utomated message] The system [employer] generated this result transmitted ref erence range: 3.5 - 10 .5 K/L. The refe rence range was not u sed to interpret this result as normal/abnor mal. RBC (test code = 789-8) 3.33 See_Comment L [Au tomated message] The system [employer] generated this result transmitted ref erence range: 3.93 - 5 .22 M/L. The refe rence range was not u sed to interpret this result as normal/abnor mal. MCHC (test code = 786-4) 31.8 See_Comment L [A utomated message] The system [employer] generated this result transmitted ref erence range: [...] L [Aut omated message] 777-3) The system [employer] generated this result transmitted ref erence range: 150 - 45 0 K/CU MM. The referen ce range was not u sed to interpret this result as normal/abnor mal. MPV (test code = 10.3 fL 9.4-12.3 68665-3) nRBC (test code = 413) 0 See_Comment [Aut omated message] The system [employer] generated this result transmitted ref erence range: 0 - 0 /1 00 WBC. The refere nce range was not u sed to interpret this result as normal/abnor mal. Lab Interpretation (test Abnormal code = 75502-1) [facility] with platelet count + automated [id number] 15:24:09 Test Item Value Reference Range Interpretation Comments WBC (test code = 6690-2) 16.2 See_Comment H [A utomated message] The system [employer] generated this result transmitted ref erence range: 3.5 - 10 .5 K/L. The refe rence range was not u sed to interpret this result as normal/abnor mal. RBC (test code = 789-8) 3.33 See_Comment L [Au tomated message] The system [employer] generated this result transmitted ref erence range: 3.93 - 5 .22 M/L. The refe rence range was not u sed to interpret this result as normal/abnor mal. MCHC (test code = 786-4) 31.8 See_Comment L [A utomated message] The system [employer] generated this result transmitted ref erence range: [...] L [Aut omated message] 777-3) The system [employer] generated this result transmitted ref erence range: 150 - 45 0 K/CU MM. The referen ce range was not u sed to interpret this result as normal/abnor mal. MPV (test code = 10.3 fL 9.4-12.3 26803-1) nRBC (test code = 413) 0 See_Comment [Aut omated message] The system [employer] generated this result transmitted ref erence range: 0 - 0 /1 00 WBC. The refere nce range was not u sed to interpret this result as normal/abnor mal. Lab Interpretation (test Abnormal code = 11386-5) [facility] W/PLT COUNT & AUTO [id number] 15:24:09 Test Item Value Reference Range Interpretation [...] (BEAKER) (test code = 413) Hemoglobin and oeiftcsifa8645-50-28 15:23:11 Test Item Value Reference Range Interpretation Comments Hemoglobin (test code = 10.0 See_Comment L [Au tomated message] 786-4) The system [employer] generated this result transmitted ref erence range: 11.2 - 1 5.7 GM/DL. The refe rence range was not u sed to interpret this result as normal/abnor mal. Hematocrit (test code = 31.4 % 34.1-44.9 L 4544-3) Lab Interpretation (test Abnormal code = 17898-7) [facility] [id number] 15:23:11 Test Item Value Reference Range Interpretation Comments HEMOGLOBIN (BEAKER) (test code = 10.0 GM/DL 11.2-15.7 L 410) HEMATOCRIT (BEAKER) (test code = 31.4 % 34.1-44.9 L 411) BLOOD GAS, [id number] 15:19:54 Test Item Value Reference Range Interpretation [...] = 1819) 75.0 HGB/HCT (H&H) - STAT [id number] 15:19:53 Test Item Value Reference Range Interpretation Comments HEMOGLOBIN (BEAKER) (test code = 10.6 GM/DL 12.0-15.0 L 410) HEMATOCRIT (BEAKER) (test code = 31.0 % 36.0-45.0 L 411) GLUCOSE-STAT [id number] 15:19:46 Test Item Value Reference Range Interpretation Comments GLUCOSE RANDOM (BEAKER) (test code 200 mg/dL 70-110 H = 652) OXYGEN SATURATION, [id number] 15:18:32 Test Item Value Reference Range Interpretation Comments O2 SATURATION (MEASURED) (BEAKER) 83.4 % (test code = 1455) POTASSIUM-STAT [id number] 15:18:10 Test Item Value Reference Range Interpretation Comments POTASSIUM (BEAKER) (test code = 4.5 meq/L 3.6-5.5 379) SODIUM NA-STAT [id number] 15:18:09 Test Item Value Reference Range Interpretation Comments SODIUM (BEAKER) (test code = 381) 136 meq/L 136-145 CALCIUM, [id number] 15:18:08 Test Item Value Reference Range Interpretation Comments CALCIUM IONIZED (BEAKER) (test 1.14 mmol/L 1.12-1.27 code = 698) PH, BLOOD (BEAKER) (test code = 7.39 1810) POC ACTIVATED CLOTTING [id number] 14:20:47 Test Item Value Reference Range Interpretation Comments Activated Clotting Time 130 sec : 74 -137 seconds, (test code = 441) Baseline: TESTED AT [address], [facility] 30: Brewery Worker/Techni kelle ID = [id number] for Me ndoza, [place] [facility] ACTIVATED CLOTTING [id number] 14:20:47 Test Item Value Reference Range Interpretation Comments Activated Clotting Time 130 sec : 74 -137 seconds, (test code = 441) Baseline: TESTED AT [address], [address]: Brewery Worker/Techni kelle ID = [id number] for Me ndoza, [place] [facility] ACTIVATED CLOTTING [id number] 14:20:47 Test Item Value Reference Range Interpretation Comments Activated Clotting Time 130 sec : 74 -137 seconds, (test code = 441) Baseline: TESTED AT [address], [address]: Brewery Worker/Techni kelle ID = [id number] for Me ndoza, [place] [facility] ACTIVATED CLOTTING [id number] 14:20:47 Test Item Value Reference Range Interpretation Comments Activated Clotting Time 130 sec : 74 -137 seconds, (test code = 441) Baseline: TESTED AT [address], [address]: Brewery Worker/Techni kelle ID = [id number] for Me ndoza, [place] [facility] ACTIVATED CLOTTING [id number] 14:20:47 Test Item Value Reference Range Interpretation Comments Activated Clotting Time 130 sec : 74 -137 seconds, (test code = 441) Baseline: TESTED AT [address], [address]: Brewery Worker/Techni kelle ID = [id number] for Me ndoza, [place] [facility] ACTIVATED CLOTTING [id number] 14:20:47 Test Item Value Reference Range Interpretation Comments Activated Clotting Time 130 sec : 74 -137 seconds, (test code = 441) Baseline: TESTED AT [address], [address]: Brewery Worker/Techni kelle ID = [id number] for Me ndoza, [place] [facility] ACTIVATED CLOTTING [id number] 14:20:47 Test Item Value Reference Range Interpretation Comments Activated Clotting Time 130 sec : 74 -137 seconds, (test code = 441) Baseline: TESTED AT [address], [address]: Brewery Worker/Techni kelle ID = [id number] for Me ndoza, [place] [facility] ACTIVATED CLOTTING [id number] 14:20:47 Test Item Value Reference Range Interpretation Comments Activated Clotting Time 130 sec : 74 -137 seconds, (test code = 441) Baseline: TESTED AT [address], [address]: Brewery Worker/Techni kelle ID = [id number] for Me ndoza, [place] [facility] ACTIVATED CLOTTING [id number] 14:20:47 Test Item Value Reference Range Interpretation Comments Activated Clotting Time 130 sec : 74 -137 seconds, (test code = 441) Baseline: TESTED AT [address], [address]: Brewery Worker/Techni kelle ID = [id number] for Me ndoza, [place] [facility] ACTIVATED CLOTTING [id number] 14:20:47 Test Item Value Reference Range Interpretation Comments Activated Clotting Time 130 sec : 74 -137 seconds, (test code = 441) Baseline: TESTED AT [address], [address]: Brewery Worker/Techni kelle ID = [id number] for Me ndoza, [place] [facility] ACTIVATED CLOTTING [id number] 14:20:47 Test Item Value Reference Range Interpretation Comments Activated Clotting Time 130 sec : 74 -137 seconds, (test code = 441) Baseline: TESTED AT [address], [address]: Brewery Worker/Techni kelle ID = [id number] for Me ndoza, [place] [facility] ACTIVATED CLOTTING [id number] 14:20:47 Test Item Value Reference Range Interpretation Comments Activated Clotting Time 130 sec : 74 -137 seconds, (test code = 441) Baseline: TESTED AT [address], [address]: Brewery Worker/Techni kelle ID = [id number] for Me ndoza, [place] [facility] ACTIVATED CLOTTING [id number] 14:20:47 Test Item Value Reference Range Interpretation Comments Activated Clotting Time 130 sec : 74 -137 seconds, (test code = 3184-9) Baselin e: TESTED AT [address], [address]: Brewery Worker/Techni kelle ID = [id number] for Me ndoza, [place] [facility] ACTIVATED CLOTTING [id number] 14:20:47 Test Item Value Reference Range Interpretation Comments Activated Clotting Time 130 sec : 74 -137 seconds, (test code = 3184-9) Baselin e: TESTED AT [address], [address]: Brewery Worker/Techni kelle ID = [id number] for Me ndoza, [place] [facility] ACTIVATED CLOTTING [id number] 14:20:47 Test Item Value Reference Range Interpretation Comments Activated Clotting Time 130 sec : 74 -137 seconds, (test code = 3184-9) Baselin e: TESTED AT [address], [address]: Brewery Worker/Techni kelle ID = [id number] for Me ndoza, [place] [facility] ACTIVATED CLOTTING [id number] 14:20:47 Test Item Value Reference Range Interpretation Comments Activated Clotting Time 130 sec : 74 -137 seconds, (test code = 3184-9) Baselin e: TESTED AT [address], [address]: Brewery Worker/Techni kelle ID = [id number] for Me ndoza, [place] [facility] ACTIVATED CLOTTING [id number] 14:20:47 Test Item Value Reference Range Interpretation Comments Activated Clotting Time 130 sec : 74 -137 seconds, (test code = 441) Baseline: TESTED AT [address], [address]: Brewery Worker/Techni kelle ID = [id number] for Me ndoza, [place] [facility] ACTIVATED CLOTTING [id number] 14:20:47 Test Item Value Reference Range Interpretation Comments Activated Clotting Time 130 sec : 74 -137 seconds, (test code = 441) Baseline: TESTED AT [address], [address]: Brewery Worker/Techni kelle ID = [id number] for Me sanchezozRocky ivy [facility] [place][id number] 14:20:47 Test Item Value Reference Range Interpretation Comments ACTIVATED CLOTTING TIME 130 sec : 74 -137 seconds, (BEAKER) (test code = Baseli ne: TESTED AT 441) [address], [address]: Brewery Worker/Techni kelle ID = [id number] for ndoza, Rocky [id number] 14:20:46 Test Item Value Reference Range Interpretation Comments ACTIVATED CLOTTING TIME 577 sec : 74 -137 seconds, (BEAKER) (test code = Baseli ne: TESTED AT 441) [address], [address]: Brewery Worker/Techni kelle ID = [id number] for Me sanchezoza, Rocky [id number] 14:20:45 Test Item Value Reference Range Interpretation Comments ACTIVATED CLOTTING TIME 743 sec : 74 -137 seconds, (BEAKER) (test code = Baseli ne: TESTED AT 441) [address], [address]: Brewery Worker/Techni kelle ID = [id number] for ndoza, Rocky [id number] 14:20:45 Test Item Value Reference Range Interpretation Comments ACTIVATED CLOTTING TIME 618 sec : 74 -137 seconds, (BEAKER) (test code = Baseli ne: TESTED AT 441) [address], [address]: Brewery Worker/Techni kelle ID = [id number] for Me ndoza, Rocky [id number] 14:20:44 Test Item Value Reference Range Interpretation Comments ACTIVATED CLOTTING TIME 547 sec : 74 -137 seconds, (BEAKER) (test code = Baseli ne: TESTED AT 441) [address], [address]: Brewery Worker/Techni kelle ID = [id number] for Me ndoza, Rocky [id number] 14:20:12 Test Item Value Reference Range Interpretation Comments ACTIVATED CLOTTING TIME 809 sec : 74 -137 seconds, (BEAKER) (test code = Baseli ne: TESTED AT 441) [facility] [address] [place] [place], [address]: Brewery Worker/Techni kelle ID = [id number] for Rocky Danielle [id number] 13:49:05 Test Item Value Reference Range Interpretation Comments PARTIAL THROMBOPLASTIN TIME 38.3 seconds 22.5-36.0 H (BEAKER) (test code = 760) [id number] 13:48:43 Test Item Value Reference Range Interpretation Comments Fibrinogen (test code = 3255-7) 246 mg/dl 225-434 Lab Interpretation (test code = Normal 63221-6) [facility] 13:48:43 Test Item Value Reference Range Interpretation Comments Fibrinogen (test code = 3255-7) 246 mg/dl 225-434 Lab Interpretation (test code = Normal 20781-5) [facility] 13:48:43 Test Item Value Reference Range Interpretation Comments Fibrinogen (test code = 3255-7) 246 mg/dl 225-434 Lab Interpretation (test code = Normal 74205-9) [facility] 13:48:43 Test Item Value Reference Range Interpretation Comments Fibrinogen (test code = 3255-7) 246 mg/dl 225-434 Lab Interpretation (test code = Normal 30805-3) [facility] 13:48:43 Test Item Value Reference Range Interpretation Comments Fibrinogen (test code = 3255-7) 246 mg/dl 225-434 Lab Interpretation (test code = Normal 81663-2) [facility] 13:48:43 Test Item Value Reference Range Interpretation Comments Fibrinogen (test code = 3255-7) 246 mg/dl 225-434 Lab Interpretation (test code = Normal 02932-0) [facility] 13:48:43 Test Item Value Reference Range Interpretation Comments Fibrinogen (test code = 3255-7) 246 mg/dl 225-434 Lab Interpretation (test code = Normal 27536-3) [place]642-03-17 13:48:43 Test Item Value Reference Range Interpretation Comments Fibrinogen (test code = 3255-7) 246 mg/dl 225-434 Lab Interpretation (test code = Normal 27941-3) [place] 352642-03-17 13:48:43 Test Item Value Reference Range Interpretation Comments Fibrinogen (test code = 3255-7) 246 mg/dl 225-434 Lab Interpretation (test code = Normal 91671-9) [facility]2022-03-17 13:48:43 Test Item Value Reference Range Interpretation Comments Fibrinogen (test code = 3255-7) 246 mg/dl 225-434 Lab Interpretation (test code = Normal 94045-0) [place] 352642-03-17 13:48:43 Test Item Value Reference Range Interpretation Comments Fibrinogen (test code = 3255-7) 246 mg/dl 225-434 Lab Interpretation (test code = Normal 55352-9) [facility]2022-03-17 13:48:43 Test Item Value Reference Range Interpretation Comments Fibrinogen (test code = 3255-7) 246 mg/dl 225-434 Lab Interpretation (test code = Normal 51571-3) [facility]2022-03-17 13:48:43 Test Item Value Reference Range Interpretation Comments Fibrinogen (test code = 3255-7) 246 mg/dl 225-434 Lab Interpretation (test code = Normal 52175-5) [facility]2022-03-17 13:48:43 Test Item Value Reference Range Interpretation Comments Fibrinogen (test code = 3255-7) 246 mg/dl 225-434 Lab Interpretation (test code = Normal 02318-6) [place] 352642-03-17 13:48:43 Test Item Value Reference Range Interpretation Comments Fibrinogen (test code = 3255-7) 246 mg/dl 225-434 Lab Interpretation (test code = Normal 76131-0) [place] 352642-03-17 13:48:43 Test Item Value Reference Range Interpretation Comments Fibrinogen (test code = 3255-7) 246 mg/dl 225-434 Lab Interpretation (test code = Normal 16903-0) [facility] 13:48:43 Test Item Value Reference Range Interpretation Comments Fibrinogen (test code = 3255-7) 246 mg/dl 225-434 Lab Interpretation (test code = Normal 68644-1) [facility] 13:48:43 Test Item Value Reference Range Interpretation Comments Fibrinogen (test code = 3255-7) 246 mg/dl 225-434 Lab Interpretation (test code = Normal 19956-6) [facility] 13:48:43 Test Item Value Reference Range Interpretation Comments FIBRINOGEN LEVEL (BEAKER) (test 246 mg/dl 225-434 code = 658) PROTHROMBIN TIME/[id number] 13:48:05 Test Item Value Reference Range Interpretation Comments PROTIME (BEAKER) 19.5 seconds 11.9-14.2 H (test code = 759) INR (BEAKER) (test 1.67 See_Comment [Automat ed message] code = 370) The system [employer] generated this result transmitted ref erence range: <=5.90. The reference range was not used to int erpret this result as normal/abnormal . RECOMMENDED COUMADIN/WARFARIN INR THERAPY RANGESSTANDARD DOSE: 2.0 - 3.0 Includes: PROPHYLAXIS for venous thrombosis, systemic embolization; TREATMENT for venous thrombosis and/or pulmonary embolus.HIGH RISK: Target INR is 2.5-3.5 for patients with mechanical heart valves.Platelet [id number] 13:39:36 Test Item Value Reference Range Interpretation Comments Platelets (test code 133 See_Comment L [Autom ated = 777-3) message] The system which generated this result transmit levi reference range : 150 - 450 K/CU MM. The reference range was not u sed to interpret th is result as normal/abnormal . BRANDI (test code = BRANDI) Brewery Worker ID - [id number] Lab Interpretation Abnormal (test code = 32155-8) [facility] [id number] 13:39:36 Test Item Value Reference Range Interpretation Comments Platelets (test code 133 See_Comment L [Autom ated = 777-3) message] The system which generated this result transmit levi reference range : 150 - 450 K/CU MM. The reference range was not u sed to interpret th is result as normal/abnormal . BRANDI (test code = BRANDI) Brewery Worker ID - [id number] Lab Interpretation Abnormal (test code = 85685-8) [facility] [id number] 13:39:36 Test Item Value Reference Range Interpretation Comments Platelets (test code 133 See_Comment L [Autom ated = 777-3) message] The system which generated this result transmit levi reference range : 150 - 450 K/CU MM. The reference range was not u sed to interpret th is result as normal/abnormal . BRANDI (test code = BRANDI) Brewery Worker ID - [id number] Lab Interpretation Abnormal (test code = 40400-7) [facility] [id number] 13:39:36 Test Item Value Reference Range Interpretation Comments Platelets (test code 133 See_Comment L [Autom ated = 777-3) message] The system which generated this result transmit levi reference range : 150 - 450 K/CU MM. The reference range was not u sed to interpret th is result as normal/abnormal . BRANDI (test code = BRANDI) Brewery Worker ID - [id number] Lab Interpretation Abnormal (test code = 97647-4) [facility] [id number] 13:39:36 Test Item Value Reference Range Interpretation Comments Platelets (test code 133 See_Comment L [Autom ated = 777-3) message] The system which generated this result transmit levi reference range : 150 - 450 K/CU MM. The reference range was not u sed to interpret th is result as normal/abnormal . BRANDI (test code = BRANDI) Brewery Worker ID - [id number] Lab Interpretation Abnormal (test code = 56329-2) [facility] [id number] 13:39:36 Test Item Value Reference Range Interpretation Comments Platelets (test code 133 See_Comment L [Autom ated = 777-3) message] The system which generated this result transmit levi reference range : 150 - 450 K/CU MM. The reference range was not u sed to interpret th is result as normal/abnormal . BRANDI (test code = BRANDI) Brewery Worker ID - [id number] Lab Interpretation Abnormal (test code = 52982-0) [facility] [id number] 13:39:36 Test Item Value Reference Range Interpretation Comments Platelets (test code 133 See_Comment L [Autom ated = 777-3) message] The system which generated this result transmit levi reference range : 150 - 450 K/CU MM. The reference range was not u sed to interpret th is result as normal/abnormal . BRANDI (test code = BRANDI) Brewery Worker ID - [id number] Lab Interpretation Abnormal (test code = 98106-1) [id number] 13:39:36 Test Item Value Reference Range Interpretation Comments Platelets (test code 133 See_Comment L [Autom ated = 777-3) message] The system which generated this result transmit levi reference range : 150 - 450 K/CU MM. The reference range was not u sed to interpret th is result as normal/abnormal . BRANDI (test code = BRANDI) Brewery Worker ID - [id number] Lab Interpretation Abnormal (test code = 48251-3) [facility] [id number] 13:39:36 Test Item Value Reference Range Interpretation Comments Platelets (test code 133 See_Comment L [Autom ated = 777-3) message] The system which generated this result transmit levi reference range : 150 - 450 K/CU MM. The reference range was not u sed to interpret th is result as normal/abnormal . BRANDI (test code = BRANDI) Brewery Worker ID - [id number] Lab Interpretation Abnormal (test code = 61909-1) [facility] [id number] 13:39:36 Test Item Value Reference Range Interpretation Comments Platelets (test code 133 See_Comment L [Autom ated = 777-3) message] The system which generated this result transmit levi reference range : 150 - 450 K/CU MM. The reference range was not u sed to interpret th is result as normal/abnormal . BRANDI (test code = BRANDI) Brewery Worker ID - [id number] Lab Interpretation Abnormal (test code = 70958-0) [facility] [id number] 13:39:36 Test Item Value Reference Range Interpretation Comments Platelets (test code 133 See_Comment L [Autom ated = 777-3) message] The system which generated this result transmit levi reference range : 150 - 450 K/CU MM. The reference range was not u sed to interpret th is result as normal/abnormal . BRANDI (test code = BRANDI) Brewery Worker ID - [id number] Lab Interpretation Abnormal (test code = 86102-3) [facility] [id number] 13:39:36 Test Item Value Reference Range Interpretation Comments Platelets (test code 133 See_Comment L [Autom ated = 777-3) message] The system which generated this result transmit levi reference range : 150 - 450 K/CU MM. The reference range was not u sed to interpret th is result as normal/abnormal . BRANDI (test code = BRANDI) Brewery Worker ID - [id number] Lab Interpretation Abnormal (test code = 73869-9) [facility] [id number] 13:39:36 Test Item Value Reference Range Interpretation Comments Platelets (test code 133 See_Comment L [Autom ated = 777-3) message] The system which generated this result transmit levi reference range : 150 - 450 K/CU MM. The reference range was not u sed to interpret th is result as normal/abnormal . BRANDI (test code = BRANDI) Brewery Worker ID - [id number] Lab Interpretation Abnormal (test code = 26951-8) [id number] 13:39:[facility] Test Item Value Reference Range Interpretation Comments Platelets (test code 133 See_Comment L [Autom ated = 777-3) message] The system which generated this result transmit levi reference range : 150 - 450 K/CU MM. The reference range was not u sed to interpret th is result as normal/abnormal . BRANDI (test code = BRANDI) Brewery Worker ID - [id number] Lab Interpretation Abnormal (test code = 25703-9) [facility] [id number] 13:39:36 Test Item Value Reference Range Interpretation Comments Platelets (test code 133 See_Comment L [Autom ated = 777-3) message] The system which generated this result transmit levi reference range : 150 - 450 K/CU MM. The reference range was not u sed to interpret th is result as normal/abnormal . BRANDI (test code = BRANDI) Brewery Worker ID - [id number] Lab Interpretation Abnormal (test code = 27371-8) [facility] [id number] 13:39:36 Test Item Value Reference Range Interpretation Comments Platelets (test code 133 See_Comment L [Autom ated = 777-3) message] The system which generated this result transmit levi reference range : 150 - 450 K/CU MM. The reference range was not u sed to interpret th is result as normal/abnormal . BRANDI (test code = BRANDI) Brewery Worker ID - [id number] Lab Interpretation Abnormal (test code = 48548-9) [facility] [id number] 13:39:36 Test Item Value Reference Range Interpretation Comments Platelets (test code 133 See_Comment L [Autom ated = 777-3) message] The system which generated this result transmit levi reference range : 150 - 450 K/CU MM. The reference range was not u sed to interpret th is result as normal/abnormal . BRANDI (test code = BRANDI) Brewery Worker ID - [id number] Lab Interpretation Abnormal (test code = 69851-1) [facility] [id number] 13:39:36 Test Item Value Reference Range Interpretation Comments Platelets (test code 133 See_Comment L [Autom ated = 777-3) message] The system which generated this result transmit levi reference range : 150 - 450 K/CU MM. The reference range was not u sed to interpret th is result as normal/abnormal . BRANDI (test code = BRANDI) Brewery Worker ID - [id number] Lab Interpretation Abnormal (test code = 93625-3) [facility] [id number] 13:39:36 Test Item Value Reference Range Interpretation Comments PLATELET COUNT (BEAKER) (test 133 K/CU MM 150-450 L code = 756) Brewery Worker ID - [id number]/HCT (H&H) - STAT [id number] 13:26:47 Test Item Value Reference Range Interpretation Comments HEMOGLOBIN (BEAKER) (test code = 7.4 GM/DL 12.0-15.0 L 410) HEMATOCRIT (BEAKER) (test code = 22.0 % 36.0-45.0 L 411) GLUCOSE-STAT [id number] 13:26:46 Test Item Value Reference Range Interpretation Comments GLUCOSE RANDOM (BEAKER) (test code 199 mg/dL 70-110 H = 652) SODIUM NA-STAT [id number] 13:26:46 Test Item Value Reference Range Interpretation Comments SODIUM (BEAKER) (test code = 381) 134 meq/L 136-145 L CALCIUM, [id number] 13:26:40 Test Item Value Reference Range Interpretation Comments CALCIUM IONIZED (BEAKER) (test 1.03 mmol/L 1.12-1.27 L code = 698) PH, BLOOD (BEAKER) (test code = 7.33 1810) BLOOD GAS, [id number] 13:26:34 Test Item Value Reference Range Interpretation [...] (BEAKER) (test code = 1819) 100.0 POTASSIUM-STAT [id number] 13:24:59 Test Item Value Reference Range Interpretation Comments POTASSIUM (BEAKER) (test code = 4.5 meq/L 3.6-5.5 379) PLATELET [id number] 13:18:08 Test Item Value Reference Range Interpretation Comments PLATELET COUNT (BEAKER) (test code 53 K/CU MM 150-450 L = 756) Brewery Worker ID - [id number] ID - [id number] ID - [id number] 12:53:55 Test Item Value Reference Range Interpretation Comments PARTIAL THROMBOPLASTIN TIME > seconds 22.5-36.0 HH (BEAKER) (test code = 760) [id number] 12:36:04 Test Item Value Reference Range Interpretation Comments FIBRINOGEN LEVEL (BEAKER) (test 289 mg/dl 225-434 code = 658) PROTHROMBIN [id number] 12:35:28 Test Item Value Reference Range Interpretation Comments PROTIME (BEAKER) 25.4 seconds 11.9-14.2 H (test code = 759) INR (BEAKER) (test 2.35 See_Comment [Automat ed message] code = 370) The system [employer] generated this result transmitted ref erence range: <=5.90. The reference range was not used to int erpret this result as normal/abnormal . RECOMMENDED COUMADIN/WARFARIN INR THERAPY RANGESSTANDARD DOSE: 2.0 - 3.0 Includes: PROPHYLAXIS for venous thrombosis, systemic embolization; TREATMENT for venous thrombosis and/or pulmonary embolus.HIGH RISK: Target INR is 2.5-3.5 for patients with mechanical heart valves.HGB/HCT (H&H) - STAT [id number] 12:28:06 Test Item Value Reference Range Interpretation Comments HEMOGLOBIN (BEAKER) (test code = 9.3 GM/DL 12.0-15.0 L 410) HEMATOCRIT (BEAKER) (test code = 27.0 % 36.0-45.0 L 411) SODIUM NA-STAT [id number] 12:28:05 Test Item Value Reference Range Interpretation Comments SODIUM (BEAKER) (test code = 381) 133 meq/L 136-145 L GLUCOSE-STAT [id number] 12:28:05 Test Item Value Reference Range Interpretation Comments GLUCOSE RANDOM (BEAKER) (test code 189 mg/dL 70-110 H = 652) BLOOD GAS, [id number] 12:28:04 Test Item Value Reference Range Interpretation [...] (BEAKER) (test code = 1819) 75.0 POTASSIUM-STAT [id number] 12:27:48 Test Item Value Reference Range Interpretation Comments POTASSIUM (BEAKER) (test code = 5.5 meq/L 3.6-5.5 379) BLOOD GAS, [id number] 11:48:59 Test Item Value Reference Range Interpretation [...] (BEAKER) (test code = 1819) 70.0 GLUCOSE-STAT [id number] 11:47:10 Test Item Value Reference Range Interpretation Comments GLUCOSE RANDOM (BEAKER) (test code 186 mg/dL 70-110 H = 652) HGB/HCT (H&H) - STAT [id number] 11:47:10 Test Item Value Reference Range Interpretation Comments HEMOGLOBIN (BEAKER) (test code = 8.9 GM/DL 12.0-15.0 L 410) HEMATOCRIT (BEAKER) (test code = 26.0 % 36.0-45.0 L 411) SODIUM NA-STAT [id number] 11:47:09 Test Item Value Reference Range Interpretation Comments SODIUM (BEAKER) (test code = 381) 133 meq/L 136-145 L POTASSIUM-STAT [id number] 11:46:29 Test Item Value Reference Range Interpretation Comments POTASSIUM (BEAKER) (test code = 5.3 meq/L 3.6-5.5 379) HGB/HCT (H&H) - STAT [id number] 11:17:46 Test Item Value Reference Range Interpretation Comments HEMOGLOBIN (BEAKER) (test code = 9.6 GM/DL 12.0-15.0 L 410) HEMATOCRIT (BEAKER) (test code = 28.0 % 36.0-45.0 L 411) SODIUM NA-STAT [id number] 11:17:45 Test Item Value Reference Range Interpretation Comments SODIUM (BEAKER) (test code = 381) 133 meq/L 136-145 L BLOOD GAS, [id number] 11:17:39 Test Item Value Reference Range Interpretation [...] (BEAKER) (test code = 1819) 70.0 GLUCOSE-STAT [id number] 11:17:39 Test Item Value Reference Range Interpretation Comments GLUCOSE RANDOM (BEAKER) (test code 171 mg/dL 70-110 H = 652) POTASSIUM-STAT [id number] 11:17:36 Test Item Value Reference Range Interpretation Comments POTASSIUM (BEAKER) (test code = 5.1 meq/L 3.6-5.5 379) HGB/HCT (H&H) - STAT [id number] 10:50:26 Test Item Value Reference Range Interpretation Comments HEMOGLOBIN (BEAKER) (test code = 8.4 GM/DL 12.0-15.0 L 410) HEMATOCRIT (BEAKER) (test code = 25.0 % 36.0-45.0 L 411) SODIUM NA-STAT [id number] 10:50:25 Test Item Value Reference Range Interpretation Comments SODIUM (BEAKER) (test code = 381) 133 meq/L 136-145 L GLUCOSE-STAT [id number] 10:50:25 Test Item Value Reference Range Interpretation Comments GLUCOSE RANDOM (BEAKER) (test code 134 mg/dL 70-110 H = 652) BLOOD GAS, [id number] 10:50:24 Test Item Value Reference Range Interpretation [...] (BEAKER) (test code = 1819) 100.0 POTASSIUM-STAT [id number] 10:49:45 Test Item Value Reference Range Interpretation Comments POTASSIUM (BEAKER) (test code = 3.8 meq/L 3.6-5.5 379) Hemoglobin [id number] 09:30:26 Test Item Value Reference Range Interpretation [...] ADM Lab Interpretation Abnormal (test code = 40818-7) [facility] [id number] 09:30:26 Test Item Value Reference Range Interpretation [...] ADM Lab Interpretation Abnormal (test code = 70677-7) [facility] [id number] 09:30:26 Test Item Value Reference Range Interpretation [...] ADM Lab Interpretation Abnormal (test code = 90832-1) [facility] [id number] 09:30:26 Test Item Value Reference Range Interpretation [...] ADM Lab Interpretation Abnormal (test code = 93551-9) [facility] [id number] 09:30:26 Test Item Value Reference Range Interpretation [...] ADM Lab Interpretation Abnormal (test code = 48890-2) [facility] [id number] 09:30:26 Test Item Value Reference Range Interpretation [...] ADM Lab Interpretation Abnormal (test code = 10035-7) [facility] [id number] 09:30:26 Test Item Value Reference Range Interpretation [...] ADM Lab Interpretation Abnormal (test code = 98818-4) [facility] [id number] 09:30:26 Test Item Value Reference Range Interpretation [...] ADM Lab Interpretation Abnormal (test code = 19776-5) [facility] [id number] 09:30:26 Test Item Value Reference Range Interpretation [...] ADM Lab Interpretation Abnormal (test code = 19062-4) [facility] [id number] 09:30:26 Test Item Value Reference Range Interpretation [...] ADM Lab Interpretation Abnormal (test code = 08449-2) [facility] [id number] 09:30:26 Test Item Value Reference Range Interpretation [...] ADM Lab Interpretation Abnormal (test code = 29537-0) [facility] [id number] 09:30:26 Test Item Value Reference Range Interpretation [...] ADM Lab Interpretation Abnormal (test code = 95706-8) [facility] [id number] 09:30:26 Test Item Value Reference Range Interpretation [...] ADM Lab Interpretation Abnormal (test code = 03936-7) [facility] [id number] 09:30:26 Test Item Value Reference Range Interpretation [...] ADM Lab Interpretation Abnormal (test code = 20702-5) [facility] [id number] 09:30:26 Test Item Value Reference Range Interpretation [...] ADM Lab Interpretation Abnormal (test code = 00444-7) [facility] [id number] 09:30:26 Test Item Value Reference Range Interpretation [...] ADM Lab Interpretation Abnormal (test code = 33659-7) [facility] [id number] 09:30:26 Test Item Value Reference Range Interpretation [...] ADM Lab Interpretation Abnormal (test code = 70820-7) [facility] [id number] 09:30:26 Test Item Value Reference Range Interpretation [...] ADM Lab Interpretation Abnormal (test code = 88561-4) [facility] [id number] 09:30:26 Test Item Value Reference Range Interpretation [...] 5.7- 6.4% indicates increased risk for diabetes (prediabetes)."Brewery Worker ID - ADM HGB/HCT (H&H) - STAT [id number] 09:13:03 Test Item Value Reference Range Interpretation Comments HEMOGLOBIN (BEAKER) (test code = 9.0 GM/DL 12.0-15.0 L 410) HEMATOCRIT (BEAKER) (test code = 26.0 % 36.0-45.0 L 411) SODIUM NA-STAT [id number] 09:13:02 Test Item Value Reference Range Interpretation Comments SODIUM (BEAKER) (test code = 381) 134 meq/L 136-145 L GLUCOSE-STAT [id number] 09:13:02 Test Item Value Reference Range Interpretation Comments GLUCOSE RANDOM (BEAKER) (test code 112 mg/dL 70-110 H = 652) BLOOD GAS, [id number] 09:13:01 Test Item Value Reference Range Interpretation [...] (BEAKER) (test code = 1819) 100.0 CALCIUM, [id number] 09:13:00 Test Item Value Reference Range Interpretation Comments CALCIUM IONIZED (BEAKER) (test 1.09 mmol/L 1.12-1.27 L code = 698) PH, BLOOD (BEAKER) (test code = 7.46 1810) POTASSIUM-STAT [id number] 09:12:15 Test Item Value Reference Range Interpretation Comments POTASSIUM (BEAKER) (test code = 3.7 meq/L 3.6-5.5 379) BASIC METABOLIC [id number] 07:11:03 Test Item Value Reference Range Interpretation [...] S NOT APPLICABLE FOR DIALYSIS PATIEN TS. Brewery Worker ID - HIEN [id number] 06:29:42 Test Item Value Reference Range Interpretation Comments PHOSPHORUS (BEAKER) (test code = 4.7 mg/dL 2.3-4.7 604) Brewery Worker ID - HIEN [id number] 06:29:41 Test Item Value Reference Range Interpretation Comments MAGNESIUM (BEAKER) (test code = 2.0 mg/dL 1.6-2.6 627) Brewery Worker ID - HIEN [facility] W/PLT COUNT & AUTO [id number] 06:04:09 Test Item Value Reference Range Interpretation [...] code = 2801) RAD, ABDOMEN/KUB, 1 VIEW [id number] 02:55:00Reason for exam:->abdominal painMATTEL [facility]: [facility] : 1955 Sex: FFINAL [...] Quintero MDReport Verified Date/Time: 06/18/2021 02:55:15 POCT-GLUCOSE [id number] 21:39:12 Test Item Value Reference Range Interpretation Comments POC-GLUCOSE METER 135 mg/dL 70-110 H : TESTED A T [facility] (BEAKER) (test code = [place], 1538) [address]: Brewery Worker/Techni kelle ID = [id number] for Eliezer Jerome HEMOGLOBIN AND [id number] 21:31:20 Test Item Value Reference Range Interpretation Comments HEMOGLOBIN (BEAKER) (test code = 6.9 GM/DL 11.2-15.7 L 410) HEMATOCRIT (BEAKER) (test code = 21.8 % 34.1-44.9 L 411) Brewery Worker ID - [id number] ID - [id number], [id number] 18:33:00Unlisted Reason for Exam - Click Yes and Enter Reason Below->NoIs this for enterography?->NoPlease specify:->Renal Stone Protocolalso look for spleen if there is any infarct causing left flankpainWill this procedure require oral contrast?->NoCHI [facility]: [facility] : 1955 [...] Gregorio Verified Date/Time: 06/17/2021 18:33:28 Reading Location: [facility] C013T Transitional Reading Room Comprehensive metabolic [id number] 16:18:22 Test Item Value Reference Range Interpretation Comments Protein, Total (test 7.0 See_Comment [Autom ated code = 2885-2) message] The system which generated this result transmit levi reference range : 6.0 - 8.3 gm/dL . The reference range was not u sed to interpret th is result as normal/abnormal . Albumin (test code = 2.7 g/dL 3.5-5.0 L 26349-5) Alkaline Phosphatase 99 U/L 40-150 (test code [...] Calcium (test code = 8.4 mg/dL 8.4-10.2 40938-7) AST (test code = 17 U/L 5-34 1920-8) ALT (test code = 10 U/L 6-55 1742-6) EGFR (test code = 11 mL/min/1.[place] [address]-1) NOT ACCURATE CREATININE CLEARANCE IN PREDICTING GLOMERULAR FILTRATION RATE . ESTIMATED GFR I S NOT APPLICABLE FOR DIALYSIS PATIEN TS. BRANDI (test code = BRANDI) Brewery Worker ID - BS Lab Interpretation Abnormal (test code = 69527-3) [facility] [id number] 16:18:22 Test Item Value Reference Range Interpretation Comments Protein, Total (test 7.0 See_Comment [Autom ated code = 2885-2) message] The system which generated this result transmit levi reference range : 6.0 - 8.3 gm/dL . The reference range was not u sed to interpret th is result as normal/abnormal . Albumin (test code = 2.7 g/dL 3.5-5.0 L 42865-8) Alkaline Phosphatase 99 U/L 40-150 (test code [...] Calcium (test code = 8.4 mg/dL 8.4-10.2 57064-7) AST (test code = 17 U/L 5-34 1920-8) ALT (test code = 10 U/L 6-55 1742-6) EGFR (test code = 11 mL/min/1.[place] [address]-3) NOT ACCURATE CREATININE CLEARANCE IN PREDICTING GLOMERULAR FILTRATION RATE . ESTIMATED GFR I S NOT APPLICABLE FOR DIALYSIS PATIEN TSEsvin BRANDI (test code = BRANDI) Brewery Worker ID - BS Lab Interpretation Abnormal (test code = 37288-9) [facility] [id number] 16:18:22 Test Item Value Reference Range Interpretation Comments Protein, Total (test 7.0 See_Comment [Autom ated code = 2885-2) message] The system which generated this result transmit levi reference range : 6.0 - 8.3 gm/dL . The reference range was not u sed to interpret th is result as normal/abnormal . Albumin (test code = 2.7 g/dL 3.5-5.0 L 54001-8) Alkaline Phosphatase 99 U/L 40-150 (test code [...] Calcium (test code = 8.4 mg/dL 8.4-10.2 02638-5) AST (test code = 17 U/L 5-34 1920-8) ALT (test code = 10 U/L 6-55 1742-6) EGFR (test code = 11 mL/min/1.73 sq m ESTIMA [facility] [place] [address]-0) NOT ACCURATE CREATININE CLEARANCE IN PREDICTING GLOMERULAR FILTRATION RATE . ESTIMATED GFR I S NOT APPLICABLE FOR DIALYSIS PATIEN TSEsvin BRANDI (test code = BRANDI) Brewery Worker ID - BS Lab Interpretation Abnormal (test code = 51312-4) [facility] [id number] 16:18:22 Test Item Value Reference Range Interpretation Comments Protein, Total (test 7.0 See_Comment [Autom ated code = 2885-2) message] The system which generated this result transmit leiv reference range : 6.0 - 8.3 gm/dL . The reference range was not u sed to interpret th is result as normal/abnormal . Albumin (test code = 2.7 g/dL 3.5-5.0 L 62129-9) Alkaline Phosphatase 99 U/L 40-150 (test code [...] Calcium (test code = 8.4 mg/dL 8.4-10.2 64101-5) AST (test code = 17 U/L 5-34 1920-8) ALT (test code = 10 U/L 6-55 1742-6) EGFR (test code = 11 mL/min/1.73 sq m [place] [place] [address]-2) NOT ACCURATE CREATININE CLEARANCE IN PREDICTING GLOMERULAR FILTRATION RATE . ESTIMATED GFR I S NOT APPLICABLE FOR DIALYSIS PATIEN TS. BRANDI (test code = BRANDI) Brewery Worker ID - BS Lab Interpretation Abnormal (test code = 31602-9) [facility] [id number] 16:18:22 Test Item Value Reference Range Interpretation Comments Protein, Total (test 7.0 See_Comment [Autom ated code = 2885-2) message] The system which generated this result transmit levi reference range : 6.0 - 8.3 gm/dL . The reference range was not u sed to interpret th is result as normal/abnormal . Albumin (test code = 2.7 g/dL 3.5-5.0 L 74142-2) Alkaline Phosphatase 99 U/L 40-150 (test code [...] Calcium (test code = 8.4 mg/dL 8.4-10.2 80965-8) AST (test code = 17 U/L 34 1920-8) ALT (test code = 10 U/L 55 1742-6) EGFR (test code = 11 mL/min/1.[place] [address]-1) NOT ACCURATE CREATININE CLEARANCE IN PREDICTING GLOMERULAR FILTRATION RATE . ESTIMATED GFR I S NOT APPLICABLE FOR DIALYSIS PATIEN BRANDI (test code = BRANDI) Brewery Worker ID - BS Lab Interpretation Abnormal (test code = 39302-3) [facility] [id number] 16:18:22 Test Item Value Reference Range Interpretation Comments Protein, Total (test 7.0 See_Comment [Autom ated code = 2885-2) message] The system which generated this result transmit levi reference range : 6.0 - 8.3 gm/dL . The reference range was not u sed to interpret th is result as normal/abnormal . Albumin (test code = 2.7 g/dL 3.5-5.0 L 18697-7) Alkaline Phosphatase 99 U/L 40-150 (test code [...] Calcium (test code = 8.4 mg/dL 8.4-10.2 40379-4) AST (test code = 17 U/L -0-8) ALT (test code = 10 U/L 2-6) EGFR (test code = 11 mL/min/1.[place] [address]-7) NOT ACCURATE CREATININE CLEARANCE IN PREDICTING GLOMERULAR FILTRATION RATE . ESTIMATED GFR I S NOT APPLICABLE FOR DIALYSIS PATIEN TS. PAZ (test code = BRANDI) Brewery Worker ID - BS Lab Interpretation Abnormal (test code = 41390-4) [facility] [id number] 16:18:22 Test Item Value Reference Range Interpretation Comments Protein, Total (test 7.0 See_Comment [Autom ated code = 2885-2) message] The system which generated this result transmit levi reference range : 6.0 - 8.3 gm/dL . The reference range was not u sed to interpret th is result as normal/abnormal . Albumin (test code = 2.7 g/dL 3.5-5.0 L 69883-4) Alkaline Phosphatase 99 U/L 40-150 (test code [...] Calcium (test code = 8.4 mg/dL 8.4-10.2 07362-0) AST (test code = 17 U/L -34 0-8) ALT (test code = 10 U/L 2-6) EGFR (test code = 11 mL/min/1.[place] [address]-0) NOT ACCURATE CREATININE CLEARANCE IN PREDICTING GLOMERULAR FILTRATION RATE . ESTIMATED GFR I S NOT APPLICABLE FOR DIALYSIS PATIEN TSEsvin BRANDI (test code = BRANDI) Brewery Worker ID - BS Lab Interpretation Abnormal (test code = 91109-3) [facility] [id number] 16:18:22 Test Item Value Reference Range Interpretation Comments Protein, Total (test 7.0 See_Comment [Autom ated code = 2885-2) message] The system which generated this result transmit levi reference range : 6.0 - 8.3 gm/dL . The reference range was not u sed to interpret th is result as normal/abnormal . Albumin (test code = 2.7 g/dL 3.5-5.0 L 06950-7) Alkaline Phosphatase 99 U/L 40-150 (test code [...] Calcium (test code = 8.4 mg/dL 8.4-10.2 68255-2) AST (test code = 17 U/L 5-34 1920-8) ALT (test code = 10 U/L 6-55 1742-6) EGFR (test code = 11 mL/min/1.[place] [address]-4) NOT ACCURATE CREATININE CLEARANCE IN PREDICTING GLOMERULAR FILTRATION RATE . ESTIMATED GFR I S NOT APPLICABLE FOR DIALYSIS PATIEN TSEsvin BRANDI (test code = BRANDI) Brewery Worker ID - BS Lab Interpretation Abnormal (test code = 84463-3) [facility] [id number] 16:18:22 Test Item Value Reference Range Interpretation Comments Protein, Total (test 7.0 See_Comment [Autom ated code = 2885-2) message] The system which generated this result transmit levi reference range : 6.0 - 8.3 gm/dL . The reference range was not u sed to interpret th is result as normal/abnormal . Albumin (test code = 2.7 g/dL 3.5-5.0 L 58526-4) Alkaline Phosphatase 99 U/L 40-150 (test code [...] Calcium (test code = 8.4 mg/dL 8.4-10.2 52342-5) AST (test code = 17 U/L 5-34 1920-8) ALT (test code = 10 U/L 6-55 1742-6) EGFR (test code = 11 mL/min/1.73 sq m ESTIMA [facility] [place] [address]-8) NOT ACCURATE CREATININE CLEARANCE IN PREDICTING GLOMERULAR FILTRATION RATE . ESTIMATED GFR I S NOT APPLICABLE FOR DIALYSIS PATIEN TS. BRANDI (test code = BRANDI) Brewery Worker ID - BS Lab Interpretation Abnormal (test code = 63731-7) [facility] [id number] 16:18:22 Test Item Value Reference Range Interpretation Comments Protein, Total (test 7.0 See_Comment [Autom ated code = 2885-2) message] The system which generated this result transmit levi reference range : 6.0 - 8.3 gm/dL . The reference range was not u sed to interpret th is result as normal/abnormal . Albumin (test code = 2.7 g/dL 3.5-5.0 L 46837-4) Alkaline Phosphatase 99 U/L 40-150 (test code [...] Calcium (test code = 8.4 mg/dL 8.4-10.2 19826-3) AST (test code = 17 U/L 5-34 1920-8) ALT (test code = 10 U/L 6-55 1741-6) EGFR (test code = 11 mL/min/1.73 [place] [address]-9) NOT ACCURATE CREATININE CLEARANCE IN PREDICTING GLOMERULAR FILTRATION RATE . ESTIMATED GFR I S NOT APPLICABLE FOR DIALYSIS PATIEN BRANDI (test code = BRANDI) Brewery Worker ID - BS Lab Interpretation Abnormal (test code = 08843-1) [facility] [id number] 16:18:22 Test Item Value Reference Range Interpretation Comments Protein, Total (test 7.0 See_Comment [Autom ated code = 2885-2) message] The system which generated this result transmit levi reference range : 6.0 - 8.3 gm/dL . The reference range was not u sed to interpret th is result as normal/abnormal . Albumin (test code = 2.7 g/dL 3.5-5.0 L 60817-1) Alkaline Phosphatase 99 U/L 40-150 (test code [...] Calcium (test code = 8.4 mg/dL 8.4-10.2 08204-7) AST (test code = 17 U/L 5-34 1920-8) ALT (test code = 10 U/L 6-55 1742-6) EGFR (test code = 11 mL/min/1.[place] [address]-2) NOT ACCURATE CREATININE CLEARANCE IN PREDICTING GLOMERULAR FILTRATION RATE . ESTIMATED GFR I S NOT APPLICABLE FOR DIALYSIS PATIEN TS. BRANDI (test code = BRANDI) Brewery Worker ID - BS Lab Interpretation Abnormal (test code = 16383-6) [facility] [id number] 16:18:22 Test Item Value Reference Range Interpretation Comments Protein, Total (test 7.0 See_Comment [Autom ated code = 2885-2) message] The system which generated this result transmit levi reference range : 6.0 - 8.3 gm/dL . The reference range was not u sed to interpret th is result as normal/abnormal . Albumin (test code = 2.7 g/dL 3.5-5.0 L 63803-4) Alkaline Phosphatase 99 U/L 40-150 (test code [...] Calcium (test code = 8.4 mg/dL 8.4-10.2 60183-9) AST (test code = 17 U/L -34 1919-8) ALT (test code = 10 U/L 1742-6) EGFR (test code = 11 mL/min/1.[place] [address]-4) NOT ACCURATE CREATININE CLEARANCE IN PREDICTING GLOMERULAR FILTRATION RATE . ESTIMATED GFR I S NOT APPLICABLE FOR DIALYSIS PATIEN BRANDI (test code = BRANDI) Brewery Worker ID - BS Lab Interpretation Abnormal (test code = 60421-5) [facility] [id number] 16:18:22 Test Item Value Reference Range Interpretation Comments Protein, Total (test 7.0 See_Comment [Autom ated code = 2885-2) message] The system which generated this result transmit levi reference range : 6.0 - 8.3 gm/dL . The reference range was not u sed to interpret th is result as normal/abnormal . Albumin (test code = 2.7 g/dL 3.5-5.0 L 36393-0) Alkaline Phosphatase 99 U/L 40-150 (test code [...] Calcium (test code = 8.4 mg/dL 8.4-10.2 77810-6) AST (test code = 17 U/L 34 1919-8) ALT (test code = 10 U/L 1742-6) EGFR (test code = 11 mL/min/1.[place] [address]-5) NOT ACCURATE CREATININE CLEARANCE IN PREDICTING GLOMERULAR FILTRATION RATE . ESTIMATED GFR I S NOT APPLICABLE FOR DIALYSIS PATIEN TSEsvin BRANDI (test code = BRANDI) Brewery Worker ID - BS Lab Interpretation Abnormal (test code = 55586-3) [facility] [id number] 16:18:22 Test Item Value Reference Range Interpretation Comments Protein, Total (test 7.0 See_Comment [Autom ated code = 2885-2) message] The system which generated this result transmit levi reference range : 6.0 - 8.3 gm/dL . The reference range was not u sed to interpret th is result as normal/abnormal . Albumin (test code = 2.7 g/dL 3.5-5.0 L 72453-0) Alkaline Phosphatase 99 U/L 40-150 (test code [...] Calcium (test code = 8.4 mg/dL 8.4-10.2 12584-1) AST (test code = 17 U/L 5-34 1920-8) ALT (test code = 10 U/L 1742-6) EGFR (test code = 11 mL/min/1.[place] [address]-2) NOT ACCURATE CREATININE CLEARANCE IN PREDICTING GLOMERULAR FILTRATION RATE . 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 The reference range was not u sed to interpret th is result as normal/abnormal . Albumin (test code = 2.7 g/dL 3.5-5.0 L 01044-4) Alkaline Phosphatase 99 U/L 40-150 (test code [...] Calcium (test code = 8.4 mg/dL 8.4-10.2 64041-6) AST (test code = 17 U/L 5-34 1920-8) ALT (test code = 10 U/L 6-55 1742-6) EGFR (test code = 11 mL/min/1.[place] [address]-0) NOT ACCURATE CREATININE CLEARANCE IN PREDICTING GLOMERULAR FILTRATION RATE . ESTIMATED GFR I S NOT APPLICABLE FOR DIALYSIS PATIEN TS. BRANDI (test code = BRANDI) Brewery Worker ID - BS Lab Interpretation Abnormal (test code = 30561-1) [facility] [id number] 16:18:22 Test Item Value Reference Range Interpretation Comments Protein, Total (test 7.0 See_Comment [Autom ated code = 2885-2) message] The system which generated this result transmit levi reference range : 6.0 - 8.3 gm/dL . The reference range was not u sed to interpret th is result as normal/abnormal . Albumin (test code = 2.7 g/dL 3.5-5.0 L 65061-9) Alkaline Phosphatase 99 U/L 40-150 (test code [...] Calcium (test code = 8.4 mg/dL 8.4-10.2 63358-7) AST (test code = 17 U/L 5-34 1920-8) ALT (test code = 10 U/L 6-55 1742-6) EGFR (test code = 11 mL/min/1.[place] [address]-2) NOT ACCURATE CREATININE CLEARANCE IN PREDICTING GLOMERULAR FILTRATION RATE . ESTIMATED GFR I S NOT APPLICABLE FOR DIALYSIS PATIEN TSEsvin BRANDI (test code = BRANDI) Brewery Worker ID - BS Lab Interpretation Abnormal (test code = 99037-5) [facility] [id number] 16:18:22 Test Item Value Reference Range Interpretation Comments Protein, Total (test 7.0 See_Comment [Autom ated code = 2885-2) message] The system which generated this result transmit levi reference range : 6.0 - 8.3 gm/dL . The reference range was not u sed to interpret th is result as normal/abnormal . Albumin (test code = 2.7 g/dL 3.5-5.0 L 29720-8) Alkaline Phosphatase 99 U/L 40-150 (test code [...] Calcium (test code = 8.4 mg/dL 8.4-10.2 79872-0) AST (test code = 17 U/L 5-34 1920-8) ALT (test code = 10 U/L 6-55 1742-6) EGFR (test code = 11 mL/min/1.[place] [address]-7) NOT ACCURATE CREATININE CLEARANCE IN PREDICTING GLOMERULAR FILTRATION RATE . ESTIMATED GFR I S NOT APPLICABLE FOR DIALYSIS PATIEN TSEsvin BRANDI (test code = BRANDI) Brewery Worker ID - BS Lab Interpretation Abnormal (test code = 20630-4) [facility] [id number] 16:18:22 Test Item Value Reference Range Interpretation Comments Protein, Total (test 7.0 See_Comment [Autom ated code = 2885-2) message] The system which generated this result transmit levi reference range : 6.0 - 8.3 gm/dL . The reference range was not u sed to interpret th is result as normal/abnormal . Albumin (test code = 2.7 g/dL 3.5-5.0 L 80016-3) Alkaline Phosphatase 99 U/L 40-150 (test code [...] Calcium (test code = 8.4 mg/dL 8.4-10.2 89345-1) AST (test code = 17 U/L 5-34 1920-8) ALT (test code = 10 U/L 6-55 1742-6) EGFR (test code = 11 mL/min/1.73 [place] [address]-9) NOT ACCURATE CREATININE CLEARANCE IN PREDICTING GLOMERULAR FILTRATION RATE . ESTIMATED GFR I S NOT APPLICABLE FOR DIALYSIS PATIEN TS. BRANDI (test code = BRANDI) Brewery Worker ID - BS Lab Interpretation Abnormal (test code = 93789-3) [facility] [id number] 16:18:22 Test Item Value Reference Range Interpretation [...] S NOT APPLICABLE FOR DIALYSIS PATIEN TS. Brewery Worker ID - [id number] 16:17:20 Test Item Value Reference Range Interpretation Comments MAGNESIUM (BEAKER) (test code = 1.8 mg/dL 1.6-2.6 627) Brewery Worker ID - [id number] 16:10:37 Test Item Value Reference Range Interpretation Comments PARTIAL THROMBOPLASTIN TIME 34.5 seconds 22.5-36.0 (BEAKER) (test code = 760) PROTHROMBIN TIME/[id number] 16:10:03 Test Item Value Reference Range Interpretation Comments PROTIME (BEAKER) 17.2 seconds 11.9-14.2 H (test code = 759) INR (BEAKER) (test 1.43 See_Comment [Automat ed message] code = 370) The system [employer] generated this result transmitted ref erence range: <=5.90. The reference range was not used to int erpret this result as normal/abnormal . RECOMMENDED COUMADIN/WARFARIN INR THERAPY RANGESSTANDARD DOSE: 2.0 - 3.0 Includes: PROPHYLAXIS for venous thrombosis, systemic embolization; TREATMENT for venous thrombosis and/or pulmonary embolus.HIGH RISK: Target INR is 2.5-3.5 for patients with mechanical heart valves.CBC W/PLT COUNT & AUTO [id number] 16:01:31 Test Item Value Reference Range Interpretation [...] (BEAKER) (test code = 2801) NV, ANGIOGRAM, [id number] 09:13:00Reason for exam:->mycotic aneurysm rule outCH[facility] : 1955 Sex: FFINAL REPORT DATE OF PROCEDURE: 06/16/2021 SURGEON: Mili Kent MD PRODUCTION ILLUSTRATOR: Eloy Portillo MD; Alisa Monae MD PREOPERATIVE DIAGNOSIS: Subarachnoid hemorrhage POST OPERATIVE DIAGNOSIS: Nonaneurysmal subarachnoid hemorrhage PROCEDURE: Diagnostic cerebral injury ANESTHESIA: Monitored anesthesia ESTIMATED BLOOD LOSS: Minimal COMPLICATIONS: None Vessels catheterized:Right common femoral arteryRight common carotid artery, cervicalRight common carotid, cerebralLeft common carotid artery, cervicalLeft common carotid, cerebralLeft vertebral artery *FEMORAL*5F sheathBentson WireVertebral CatheterTerumo Juliette wireMynx Closure Device INDICATIONS: The patient is [...] arteries are patent. 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 No evidence of aneurysm, vascular [...] cerebral artery is diminutive in size given WOOD WEB WEAVING MACHINE OPERATOR anatomy and the the left WOOD WEB WEAVING MACHINE OPERATOR is normal in caliber and contour. No [...] technical or clinical complications. Signed: Mili Kent [facility] Verified Date/Time: 06/17/2021 09:13:43 Reading Location: [facility] Y026 Neuro Angio Reading Room BASIC METABOLIC [id number] 05:09:41 Test Item Value Reference Range Interpretation [...] S NOT APPLICABLE FOR DIALYSIS PATIEN TS. Brewery Worker ID - HIEN [id number] 05:07:06 Test Item Value Reference Range Interpretation Comments MAGNESIUM (BEAKER) (test code = 2.1 mg/dL 1.6-2.6 627) Brewery Worker ID - HIEN [id number] 05:07:06 Test Item Value Reference Range Interpretation Comments PHOSPHORUS (BEAKER) (test code = 5.7 mg/dL 2.3-4.7 H 604) Brewery Worker ID - HIEN MCBC W/PLT COUNT & AUTO [id number] 04:38:56 Test Item Value Reference Range Interpretation [...] PERCENT (BEAKER) (test code = 2801) POCT-GLUCOSE [id number] 00:10:32 Test Item Value Reference Range Interpretation Comments POC-GLUCOSE METER 221 mg/dL 70-110 H : TESTED [facility] T [facility] (BEAKER) (test code = YUDY WHTIE [place], 1538) [address]: Brewery Worker/Techni kelle ID = [id number] for SHAHLA BARRY POCT-GLUCOSE [id number] 18:11:32 Test Item Value Reference Range Interpretation Comments POC-GLUCOSE METER 170 mg/dL 70-110 H : TESTED A [facility] (BEAKER) (test code = YUDY WHITE [place], 1538) 60627: Brewery Worker/Techni kelle ID = [id number] for Onelia Lorenz Blood [id number] 14:00:39 Test Item Value Reference Range Interpretation Comments Result (test code = No growth in 5 days 6463-4) [facility] [id number] 14:00:39 Test Item Value Reference Range Interpretation Comments Result (test code = No growth in 5 days 6463-4) [facility] [id number] 14:00:39 Test Item Value Reference Range Interpretation Comments Result (test code = No growth in 5 days 6463-4) [facility] [id number] 14:00:39 Test Item Value Reference Range Interpretation Comments Result (test code = No growth in 5 days 6463-4) [facility] [id number] 14:00:39 Test Item Value Reference Range Interpretation Comments Result (test code = No growth in 5 days 6463-4) [facility] [id number] 14:00:39 Test Item Value Reference Range Interpretation Comments Result (test code = No growth in 5 days 6463-4) [facility] [id number] 14:00:39 Test Item Value Reference Range Interpretation Comments Result (test code = No growth in 5 days 6463-4) [facility]2022-03-15 14:00:39 Test Item Value Reference Range Interpretation Comments Result (test code = No growth in 5 days 6463-4) [facility] [id number] 14:00:39 Test Item Value Reference Range Interpretation Comments Result (test code = No growth in 5 days 6463-4) [facility] [id number] 14:00:39 Test Item Value Reference Range Interpretation Comments Result (test code = No growth in 5 days 6463-4) [facility]2022-03-15 14:00:39 Test Item Value Reference Range Interpretation Comments Result (test code = No growth in 5 days 6463-4) [facility]2022-03-15 14:00:39 Test Item Value Reference Range Interpretation Comments Result (test code = No growth in 5 days 6463-4) [facility]2022-03-15 14:00:39 Test Item Value Reference Range Interpretation Comments Result (test code = No growth in 5 days 6463-4) [facility]2022-03-15 14:00:39 Test Item Value Reference Range Interpretation Comments Result (test code = No growth in 5 days 6463-4) [facility]2022-03-15 14:00:39 Test Item Value Reference Range Interpretation Comments Result (test code = No growth in 5 days 6463-4) [facility]2022-03-15 14:00:39 Test Item Value Reference Range Interpretation Comments Result (test code = No growth in 5 days 6463-4) [facility]2022-03-15 14:00:39 Test Item Value Reference Range Interpretation Comments Result (test code = No growth in 5 days 6463-4) [facility]2022-03-15 14:00:39 Test Item Value Reference Range Interpretation Comments CULTURE (BEAKER) (test No growth in 5 days code = 1095) MR, BRAIN, WITHOUT [id number] 13:02:00Pt has [place] scientific ESSENTIO MRI L111/ [id number] Unlisted Reason for Exam - Click Yes and Enter Reason Below- >No Deos the patient have an implanted electronic device?->Yes [place] scientific ESSENTIO MRI L111/ [id number] [facility] : 1955 Sex: [...] MDReport Verified Date/Time: 06/16/2021 13:02:07 Reading Location: [address] Neuro Reading Room D [id number] 08:00:27 Test Item Value Reference Range Interpretation Comments CULTURE (BEAKER) (test No growth in 5 days code = 1095) POCT-GLUCOSE [id number] 07:30:10 Test Item Value Reference Range Interpretation Comments POC-GLUCOSE METER 159 mg/dL 70-110 H : TESTED [facility] (BEAKER) (test code = YDUY WHITE [place], 1538) 94[address]: Brewery Worker/Techni kelle ID = [id number] for Onelia Lorenz BASIC METABOLIC [id number] 05:42:18 Test Item Value Reference Range Interpretation [...] S NOT APPLICABLE FOR DIALYSIS PATIEN TS. Brewery Worker ID - RAKAN [id number] 05:35:31 Test Item Value Reference Range Interpretation Comments MAGNESIUM (BEAKER) (test code = 2.1 mg/dL 1.6-2.6 627) Brewery Worker ID Bassam RAKAN [id number] 05:35:31 Test Item Value Reference Range Interpretation Comments PHOSPHORUS (BEAKER) (test code = 4.5 mg/dL 2.3-4.7 604) Brewery Worker ID - RAKAN WCBC W/PLT COUNT & AUTO [id number] 04:43:33 Test Item Value Reference Range Interpretation [...] PERCENT (BEAKER) (test code = 2801) BLOOD [id number] 00:00:28 Test Item Value Reference Range Interpretation Comments CULTURE (AKASH) (test No growth in 5 days code = 1095) The specimen volume collected for this blood culture was below the optimum (10 mL per bottle or 20 mL total). Use of lower volumes may adversely affect recovery and/or detection times of some organisms.POCT-GLUCOSE [id number] 21:39:58 Test Item Value Reference Range Interpretation Comments POC-GLUCOSE METER 173 mg/dL 70-110 H : Notified RN/MD: (AKASH) (test code = TESTED AT [facility] 1538) [facility], [address]: Brewery Worker/Techni kelle ID = [id number] for DE NNIS, EMANUEL Hepatic function [id number] 15:52:11 Test Item Value Reference Range Interpretation Comments Protein, Total (test 6.8 See_Comment [Autom ated code = 2885-2) message] The system which generated this result transmit levi reference range : 6.0 - 8.3 gm/dL . The reference range was not u sed to interpret th is result as normal/abnormal . Albumin (test code = 2.6 g/dL 3.5-5.0 L 18697-6) Total Bilirubin (test 0.3 mg/dL 0.2-1.2 code = 1974-) Bilirubin, Direct 0.2 mg/dL 0.1-0.5 (test code = 1967-) Alkaline Phosphatase 90 U/L 40-150 (test code = 6768-6) AST (test code = 17 U/L 5- 1920-8) ALT (test code = 11 U/L - 1742-6) BRANDI (test code = BRANDI) Brewery Worker ID - PIKEZIA L Lab Interpretation Abnormal (test code = 33245-4) [facility] [id number] 15:52:11 Test Item Value Reference Range Interpretation Comments Protein, Total (test 6.8 See_Comment [Autom ated code = 2885-2) message] The system which generated this result transmit levi reference range : 6.0 - 8.3 gm/dL . The reference range was not u sed to interpret th is result as normal/abnormal . Albumin (test code = 2.6 g/dL 3.5-5.0 L 54956-7) Total Bilirubin (test 0.3 mg/dL 0.2-1.2 code = 1974-) Bilirubin, Direct 0.2 mg/dL 0.1-0.5 (test code = 1967-) Alkaline Phosphatase 90 U/L 40-150 (test code = 6768-6) AST (test code = 17 U/L 5-34 1920-8) ALT (test code = 11 U/L 6-55 1742-6) BRANDI (test code = BRANDI) Brewery Worker ID - PIAYA L Lab Interpretation Abnormal (test code = 78194-8) [facility] [id number] 15:52:11 Test Item Value Reference Range Interpretation Comments Protein, Total (test 6.8 See_Comment [Autom ated code = 2885-2) message] The system which generated this result transmit levi reference range : 6.0 - 8.3 gm/dL . The reference range was not u sed to interpret th is result as normal/abnormal . Albumin (test code = 2.6 g/dL 3.5-5.0 L 31672-1) Total Bilirubin (test 0.3 mg/dL 0.2-1.2 code = 1974-2) Bilirubin, Direct 0.2 mg/dL 0.1-0.5 (test code = 1967-7) Alkaline Phosphatase 90 U/L 40-150 (test code = 6768-6) AST (test code = 17 U/L 5-34 1920-8) ALT (test code = 11 U/L 6- 1742-6) BRANDI (test code = BRANDI) Brewery Worker ID - LIANA L Lab Interpretation Abnormal (test code = 67598-0) [facility] [id number] 15:52:11 Test Item Value Reference Range Interpretation Comments Protein, Total (test 6.8 See_Comment [Autom ated code = 2885-2) message] The system which generated this result transmit levi reference range : 6.0 - 8.3 gm/dL . The reference range was not u sed to interpret th is result as normal/abnormal . Albumin (test code = 2.6 g/dL 3.5-5.0 L 26635-6) Total Bilirubin (test 0.3 mg/dL 0.2-1.2 code = 1974-2) Bilirubin, Direct 0.2 mg/dL 0.1-0.5 (test code = 1967-) Alkaline Phosphatase 90 U/L 40-150 (test code = 6768-6) AST (test code = 17 U/L 5-34 1920-8) ALT (test code = 11 U/L 6-55 1742-6) BRANDI (test code = BRANDI) Brewery Worker ID - PIAYA L Lab Interpretation Abnormal (test code = 16149-7) [facility] [id number] 15:52:11 Test Item Value Reference Range Interpretation Comments Protein, Total (test 6.8 See_Comment [Autom ated code = 2885-2) message] The system which generated this result transmit levi reference range : 6.0 - 8.3 gm/dL . The reference range was not u sed to interpret th is result as normal/abnormal . Albumin (test code = 2.6 g/dL 3.5-5.0 L 48169-9) Total Bilirubin (test 0.3 mg/dL 0.2-1.2 code = 1974-2) Bilirubin, Direct 0.2 mg/dL 0.1-0.5 (test code = 1967-7) Alkaline Phosphatase 90 U/L 40-150 (test code = 6768-6) AST (test code = 17 U/L 34 1920-8) ALT (test code = 11 U/L 655 1742-6) BRANDI (test code = BRANDI) Brewery Worker ID - PIAYA L Lab Interpretation Abnormal (test code = 69025-6) [facility] [id number] 15:52:11 Test Item Value Reference Range Interpretation Comments Protein, Total (test 6.8 See_Comment [Autom ated code = 2885-2) message] The system which generated this result transmit levi reference range : 6.0 - 8.3 gm/dL . The reference range was not u sed to interpret th is result as normal/abnormal . Albumin (test code = 2.6 g/dL 3.5-5.0 L 91782-2) Total Bilirubin (test 0.3 mg/dL 0.2-1.2 code = 1974-) Bilirubin, Direct 0.2 mg/dL 0.1-0.5 (test code = 1967-7) Alkaline Phosphatase 90 U/L 40-150 (test code = 6768-6) AST (test code = 17 U/L 34 1920-8) ALT (test code = 11 U/L 6-55 1742-6) BRANDI (test code = BRANDI) Brewery Worker ID - PIAYA L Lab Interpretation Abnormal (test code = 09986-5) [facility] [id number] 15:52:11 Test Item Value Reference Range Interpretation Comments Protein, Total (test 6.8 See_Comment [Autom ated code = 2885-2) message] The system which generated this result transmit levi reference range : 6.0 - 8.3 gm/dL . The reference range was not u sed to interpret th is result as normal/abnormal . Albumin (test code = 2.6 g/dL 3.5-5.0 L 45627-7) Total Bilirubin (test 0.3 mg/dL 0.2-1.2 code = 1974-05) Bilirubin, Direct 0.2 mg/dL 0.1-0.5 (test code = 1967-10) Alkaline Phosphatase 90 U/L 40-150 (test code = 6768-6) AST (test code = 17 U/L 1920-8) ALT (test code = 11 U/L 1742-6) BRANDI (test code = BRANDI) Brewery Worker ID - PIAYA L Lab Interpretation Abnormal (test code = 10494-8) [facility] [id number] 15:52:11 Test Item Value Reference Range Interpretation Comments Protein, Total (test 6.8 See_Comment [Autom ated code = 2885-2) message] The system which generated this result transmit levi reference range : 6.0 - 8.3 gm/dL . The reference range was not u sed to interpret th is result as normal/abnormal . Albumin (test code = 2.6 g/dL 3.5-5.0 L 48884-5) Total Bilirubin (test 0.3 mg/dL 0.2-1.2 code = 1974-05) Bilirubin, Direct 0.2 mg/dL 0.1-0.5 (test code = 1967-10) Alkaline Phosphatase 90 U/L 40-150 (test code = 6768-6) AST (test code = 17 U/L 34 1920-8) ALT (test code = 11 U/L 1742-6) BRANDI (test code = BRANDI) Brewery Worker ID - PIAYA L Lab Interpretation Abnormal (test code = 00088-7) [facility] [id number] 15:52:11 Test Item Value Reference Range Interpretation Comments Protein, Total (test 6.8 See_Comment [Autom ated code = 2885-2) message] The system which generated this result transmit levi reference range : 6.0 - 8.3 gm/dL . The reference range was not u sed to interpret th is result as normal/abnormal . Albumin (test code = 2.6 g/dL 3.5-5.0 L 99346-1) Total Bilirubin (test 0.3 mg/dL 0.2-1.2 code = 1974-) Bilirubin, Direct 0.2 mg/dL 0.1-0.5 (test code = 1967-10) Alkaline Phosphatase 90 U/L 40-150 (test code = 6768-6) AST (test code = 17 U/L 34 1920-8) ALT (test code = 11 U/L 1742-6) BRANDI (test code = BRANDI) Brewery Worker ID - LIANA L Lab Interpretation Abnormal (test code = 41309-6) [facility] [id number] 15:52:11 Test Item Value Reference Range Interpretation Comments Protein, Total (test 6.8 See_Comment [Autom ated code = 2885-2) message] The system which generated this result transmit levi reference range : 6.0 - 8.3 gm/dL . The reference range was not u sed to interpret th is result as normal/abnormal . Albumin (test code = 2.6 g/dL 3.5-5.0 L 27715-1) Total Bilirubin (test 0.3 mg/dL 0.2-1.2 code = 1974-05) Bilirubin, Direct 0.2 mg/dL 0.1-0.5 (test code = 1967-10) Alkaline Phosphatase 90 U/L 40-150 (test code = 6768-6) AST (test code = 17 U/L 192-8) ALT (test code = 11 U/L 1742-6) BRANDI (test code = BRANDI) Brewery Worker ID - PIAYA L Lab Interpretation Abnormal (test code = 31360-0) [facility] function [id number] 15:52:11 Test Item Value Reference Range Interpretation Comments Protein, Total (test 6.8 See_Comment [Autom ated code = 2885-2) message] The system which generated this result transmit levi reference range : 6.0 - 8.3 gm/dL . The reference range was not u sed to interpret th is result as normal/abnormal . Albumin (test code = 2.6 g/dL 3.5-5.0 L 69414-0) Total Bilirubin (test 0.3 mg/dL 0.2-1.2 code = 1974-05) Bilirubin, Direct 0.2 mg/dL 0.1-0.5 (test code = 1967-) Alkaline Phosphatase 90 U/L 40-150 (test code = 6768-6) AST (test code = 17 U/L 1919-8) ALT (test code = 11 U/L 1742-6) BRANDI (test code = BRANDI) Brewery Worker ID - PIAYA L Lab Interpretation Abnormal (test code = 77697-9) [facility] [id number] 15:52:11 Test Item Value Reference Range Interpretation Comments Protein, Total (test 6.8 See_Comment [Autom ated code = 2885-2) message] The system which generated this result transmit levi reference range : 6.0 - 8.3 gm/dL . The reference range was not u sed to interpret th is result as normal/abnormal . Albumin (test code = 2.6 g/dL 3.5-5.0 L 14682-3) Total Bilirubin (test 0.3 mg/dL 0.2-1.2 code = 1974-05) Bilirubin, Direct 0.2 mg/dL 0.1-0.5 (test code = 1967-10) Alkaline Phosphatase 90 U/L 40-150 (test code = 6768-6) AST (test code = 17 U/L 1919-8) ALT (test code = 11 U/L 1742-6) BRANDI (test code = BRANDI) Brewery Worker ID - PIAYA L Lab Interpretation Abnormal (test code = 90236-3) [facility] [id number] 15:52:11 Test Item Value Reference Range Interpretation Comments Protein, Total (test 6.8 See_Comment [Autom ated code = 2885-2) message] The system which generated this result transmit levi reference range : 6.0 - 8.3 gm/dL . The reference range was not u sed to interpret th is result as normal/abnormal . Albumin (test code = 2.6 g/dL 3.5-5.0 L 39390-6) Total Bilirubin (test 0.3 mg/dL 0.2-1.2 code = 1974-05) Bilirubin, Direct 0.2 mg/dL 0.1-0.5 (test code = 1967-10) Alkaline Phosphatase 90 U/L 40-150 (test code = 6768-6) AST (test code = 17 U/L 5-34 1920-8) ALT (test code = 11 U/L 55 1742-6) BRANDI (test code = BRANDI) Brewery Worker ID - PIAYA L Lab Interpretation Abnormal (test code = 98178-2) [facility] [id number] 15:52:11 Test Item Value Reference Range Interpretation Comments Protein, Total (test 6.8 See_Comment [Autom ated code = 2885-2) message] The system which generated this result transmit levi reference range : 6.0 - 8.3 gm/dL . The reference range was not u sed to interpret th is result as normal/abnormal . Albumin (test code = 2.6 g/dL 3.5-5.0 L 62131-9) Total Bilirubin (test 0.3 mg/dL 0.2-1.2 code = 1974-05) Bilirubin, Direct 0.2 mg/dL 0.1-0.5 (test code = 1967-) Alkaline Phosphatase 90 U/L 40-150 (test code = 6768-6) AST (test code = 17 U/L 5-34 1920-8) ALT (test code = 11 U/L 655 1742-6) BRANDI (test code = BRANDI) Brewery Worker ID - PIAYA L Lab Interpretation Abnormal (test code = 29279-1) [facility] [id number] 15:52:11 Test Item Value Reference Range Interpretation Comments Protein, Total (test 6.8 See_Comment [Autom ated code = 2885-2) message] The system which generated this result transmit levi reference range : 6.0 - 8.3 gm/dL . The reference range was not u sed to interpret th is result as normal/abnormal . Albumin (test code = 2.6 g/dL 3.5-5.0 L 19472-7) Total Bilirubin (test 0.3 mg/dL 0.2-1.2 code = 1974-) Bilirubin, Direct 0.2 mg/dL 0.1-0.5 (test code = 1967-7) Alkaline Phosphatase 90 U/L 40-150 (test code = 6768-6) AST (test code = 17 U/L 5-34 1920-8) ALT (test code = 11 U/L 6-55 1742-6) BRANDI (test code = BRANDI) Brewery Worker ID - PIAYA L Lab Interpretation Abnormal (test code = 74081-5) [facility] [id number] 15:52:11 Test Item Value Reference Range Interpretation Comments Protein, Total (test 6.8 See_Comment [Autom ated code = 2885-2) message] The system which generated this result transmit levi reference range : 6.0 - 8.3 gm/dL . The reference range was not u sed to interpret th is result as normal/abnormal . Albumin (test code = 2.6 g/dL 3.5-5.0 L 01888-4) Total Bilirubin (test 0.3 mg/dL 0.2-1.2 code = 1974-05) Bilirubin, Direct 0.2 mg/dL 0.1-0.5 (test code = 1967-10) Alkaline Phosphatase 90 U/L 40-150 (test code = 6768-6) AST (test code = 17 U/L 34 1919-8) ALT (test code = 11 U/L 6-55 1742-6) BRANDI (test code = BRANDI) Brewery Worker ID - PIAYA L Lab Interpretation Abnormal (test code = 43146-2) [facility] [id number] 15:52:11 Test Item Value Reference Range Interpretation Comments Protein, Total (test 6.8 See_Comment [Autom ated code = 2885-2) message] The system which generated this result transmit levi reference range : 6.0 - 8.3 gm/dL . The reference range was not u sed to interpret th is result as normal/abnormal . Albumin (test code = 2.6 g/dL 3.5-5.0 L 84166-9) Total Bilirubin (test 0.3 mg/dL 0.2-1.2 code = 1974-05) Bilirubin, Direct 0.2 mg/dL 0.1-0.5 (test code = 1967-) Alkaline Phosphatase 90 U/L 40-150 (test code = 6768-6) AST (test code = 17 U/L 5-34 1920-8) ALT (test code = 11 U/L 6-55 1742-6) BRANDI (test code = BRANDI) Brewery Worker ID - LIANA Guevara Lab Interpretation Abnormal (test code = 25182-9) [facility]CTION [id number] 15:52:11 Test Item Value Reference Range Interpretation [...] (test code = 11 U/L 6-55 347) Brewery Worker ID Bassam GAINES LHeparin [id number] 12:21:31 Test Item Value Reference Range Interpretation Comments Heparin Ab (test code Negative Negative = 3267-2) Heparin Antibody 0.247 <0.400 Optical Density (test code = 2659) 4T Total Score (test 4 code = 2661) BRANDI (test code = BRANDI) Probability of HIT based on scoring system: 6-8 = High probability; 4-5 = intermediate probability; 0-3 = low probability [facility] [id number] 12:21:31 Test Item Value Reference Range Interpretation Comments Heparin Ab (test code Negative Negative = 3267-2) Heparin Antibody 0.247 <0.400 Optical Density (test code = 2659) 4T Total Score (test 4 code = 2661) BRANDI (test code = BRANDI) Probability of HIT based on scoring system: 6-8 = High probability; 4-5 = intermediate probability; 0-3 = low probability [facility] [id number] 12:21:31 Test Item Value Reference Range Interpretation Comments Heparin Ab (test code Negative Negative = 3267-2) Heparin Antibody 0.247 <0.400 Optical Density (test code = 2659) 4T Total Score (test 4 code = 2661) BRANDI (test code = BRANDI) Probability of HIT based on scoring system: 6-8 = High probability; 4-5 = intermediate probability; 0-3 = low probability [facility] [id number] 12:21:31 Test Item Value Reference Range Interpretation Comments Heparin Ab (test code Negative Negative = 3267-2) Heparin Antibody 0.247 <0.400 Optical Density (test code = 2659) 4T Total Score (test 4 code = 2661) BRANDI (test code = BRANDI) Probability of HIT based on scoring system: 6-8 = High probability; 4-5 = intermediate probability; 0-3 = low probability [facility] [id number] 12:21:31 Test Item Value Reference Range Interpretation Comments Heparin Ab (test code Negative Negative = 3267-2) Heparin Antibody 0.247 <0.400 Optical Density (test code = 2659) 4T Total Score (test 4 code = 2661) BRANDI (test code = BRANDI) Probability of HIT based on scoring system: 6-8 = High probability; 4-5 = intermediate probability; 0-3 = low probability [facility] [id number] 12:21:31 Test Item Value Reference Range Interpretation Comments Heparin Ab (test code Negative Negative = 3267-2) Heparin Antibody 0.247 <0.400 Optical Density (test code = 2659) 4T Total Score (test 4 code = 2661) BRANDI (test code = BRANDI) Probability of HIT based on scoring system: 6-8 = High probability; 4-5 = intermediate probability; 0-3 = low probability [facility] [id number] 12:21:31 Test Item Value Reference Range Interpretation Comments Heparin Ab (test code Negative Negative = 3267-2) Heparin Antibody 0.247 <0.400 Optical Density (test code = 2659) 4T Total Score (test 4 code = 2661) BRANDI (test code = BRANDI) Probability of HIT based on scoring system: 6-8 = High probability; 4-5 = intermediate probability; 0-3 = low probability [facility] oriyltgp0130-69-57 12:21:31 Test Item Value Reference Range Interpretation Comments Heparin Ab (test code Negative Negative = 3267-2) Heparin Antibody 0.247 <0.400 Optical Density (test code = 2659) 4T Total Score (test 4 code = 2661) BRANDI (test code = BRANDI) Probability of HIT based on scoring system: 6-8 = High probability; 4-5 = intermediate probability; 0-3 = low probability [facility] [id number] 12:21:31 Test Item Value Reference Range Interpretation Comments Heparin Ab (test code Negative Negative = 3267-2) Heparin Antibody 0.247 <0.400 Optical Density (test code = 2659) 4T Total Score (test 4 code = 2661) BRANDI (test code = BRANDI) Probability of HIT based on scoring system: 6-8 = High probability; 4-5 = intermediate probability; 0-3 = low probability [facility] [id number] 12:21:31 Test Item Value Reference Range Interpretation Comments Heparin Ab (test code Negative Negative = 3267-2) Heparin Antibody 0.247 <0.400 Optical Density (test code = 2659) 4T Total Score (test 4 code = 2661) BRANDI (test code = BRANDI) Probability of HIT based on scoring system: 6-8 = High probability; 4-5 = intermediate probability; 0-3 = low probability [facility] [id number] 12:21:31 Test Item Value Reference Range Interpretation Comments Heparin Ab (test code Negative Negative = 3267-2) Heparin Antibody 0.247 <0.400 Optical Density (test code = 2659) 4T Total Score (test 4 code = 2661) BRANDI (test code = BRANDI) Probability of HIT based on scoring system: 6-8 = High probability; 4-5 = intermediate probability; 0-3 = low probability [facility] [place] [id number] 12:21:31 Test Item Value Reference Range Interpretation Comments Heparin Ab (test code Negative Negative = 3267-2) Heparin Antibody 0.247 <0.400 Optical Density (test code = 2659) 4T Total Score (test 4 code = 2661) BRANDI (test code = BRANDI) Probability of HIT based on scoring system: 6-8 = High probability; 4-5 = intermediate probability; 0-3 = low probability [facility] [place] ifoicvra1427-12-27 12:21:31 Test Item Value Reference Range Interpretation Comments Heparin Ab (test code Negative Negative = 3267-2) Heparin Antibody 0.247 <0.400 Optical Density (test code = 2659) 4T Total Score (test 4 code = 2661) BRANDI (test code = BRADNI) Probability of HIT based on scoring system: 6-8 = High probability; 4-5 = intermediate probability; 0-3 = low probability [facility] [id number] 12:21:31 Test Item Value Reference Range Interpretation Comments Heparin Ab (test code Negative Negative = 3267-2) Heparin Antibody 0.247 <0.400 Optical Density (test code = 2659) 4T Total Score (test 4 code = 2661) BRANDI (test code = BRANDI) Probability of HIT based on scoring system: 6-8 = High probability; 4-5 = intermediate probability; 0-3 = low probability [facility] [id number] 12:21:31 Test Item Value Reference Range Interpretation Comments Heparin Ab (test code Negative Negative = 3267-2) Heparin Antibody 0.247 <0.400 Optical Density (test code = 2659) 4T Total Score (test 4 code = 2661) BRANDI (test code = BRANDI) Probability of HIT based on scoring system: 6-8 = High probability; 4-5 = intermediate probability; 0-3 = low probability [facility] [id number] 12:21:31 Test Item Value Reference Range Interpretation Comments Heparin Ab (test code Negative Negative = 3267-2) Heparin Antibody 0.247 <0.400 Optical Density (test code = 2659) 4T Total Score (test 4 code = 2661) BRANDI (test code = BRANDI) Probability of HIT based on scoring system: 6-8 = High probability; 4-5 = intermediate probability; 0-3 = low probability [facility] [id number] 12:21:31 Test Item Value Reference Range Interpretation Comments Heparin Ab (test code Negative Negative = 3267-2) Heparin Antibody 0.247 <0.400 Optical Density (test code = 2659) 4T Total Score (test 4 code = 2661) BRANDI (test code = BRANDI) Probability of HIT based on scoring system: 6-8 = High probability; 4-5 = intermediate probability; 0-3 = low probability [facility] [id number] 12:21:31 Test Item Value Reference Range Interpretation Comments HEPARIN ANTIBODY (BEAKER) (test code Negative Negative = 646) HEPARIN ANTIBODY OD (BEAKER) (test 0.247 <0.400 code = 2659) 4T TOTAL SCORE (BEAKER) (test code = 4 2271) Probability of HIT based on scoring system: 6-8 = High probability; 4-5 = intermediate probability; 0-3 = low probabilityProvidence Healthdofisq0861-39-99 08:07:00 Test Item Value Reference Range Interpretation Comments ABO Grouping (test code = 2588) O Rh Factor (test code = 2589) [facility]2022-03-14 08:07:00 Test Item Value Reference Range Interpretation Comments ABO Grouping (test code = 2588) O Rh Factor (test code = 2589) [facility]2022-03-14 08:07:00 Test Item Value Reference Range Interpretation Comments ABO Grouping (test code = 2588) O Rh Factor (test code = 2589) [facility]2022-03-14 08:07:00 Test Item Value Reference Range Interpretation Comments ABO Grouping (test code = 2588) O Rh Factor (test code = 2589) [facility], [id number] 08:07:00 Test Item Value Reference Range Interpretation Comments ABO Grouping (test code = 2588) O Rh Factor (test code = 2589) [facility], [id number] 08:07:00 Test Item Value Reference Range Interpretation Comments ABO Grouping (test code = 2588) O Rh Factor (test code = 2589) [facility]2022-03-14 08:07:00 Test Item Value Reference Range Interpretation Comments ABO Grouping (test code = 2588) O Rh Factor (test code = 2589) [facility], [id number] 08:07:00 Test Item Value Reference Range Interpretation Comments ABO Grouping (test code = 2588) O Rh Factor (test code = 2589) [facility], [id number] 08:07:00 Test Item Value Reference Range Interpretation Comments ABO Grouping (test code = 2588) O Rh Factor (test code = 2589) [facility], [id number] 08:07:00 Test Item Value Reference Range Interpretation Comments ABO Grouping (test code = 2588) O Rh Factor (test code = 2589) [facility], [id number] 08:07:00 Test Item Value Reference Range Interpretation Comments ABO Grouping (test code = 2588) O Rh Factor (test code = 2589) [facility], [id number] 08:07:00 Test Item Value Reference Range Interpretation Comments ABO Grouping (test code = 2588) O Rh Factor (test code = 2589) [facility], [id number] 08:07:00 Test Item Value Reference Range Interpretation Comments ABO Grouping (test code = 2588) O Rh Factor (test code = 2589) [facility], xrvkeo7442-43-30 08:07:00 Test Item Value Reference Range Interpretation Comments ABO Grouping (test code = 2588) O Rh Factor (test code = 2589) [facility], [id number] 08:07:00 Test Item Value Reference Range Interpretation Comments ABO Grouping (test code = 2588) O Rh Factor (test code = 2589) [facility], [id number] 08:07:00 Test Item Value Reference Range Interpretation Comments ABO Grouping (test code = 2588) O Rh Factor (test code = 2589) [facility], xnywlc5319-74-31 08:07:00 Test Item Value Reference Range Interpretation Comments ABO Grouping (test code = 2588) O Rh Factor (test code = 2589) [id number] 05:19:52 Test Item Value Reference Range Interpretation [...] S NOT APPLICABLE FOR DIALYSIS PATIEN TS. Brewery Worker ID - BURKEKEZIA [id number] 05:09:04 Test Item Value Reference Range Interpretation Comments PHOSPHORUS (BEAKER) (test code = 4.1 mg/dL 2.3-4.7 604) Brewery Worker ID - BURKEKEZIA [id number] 05:09:03 Test Item Value Reference Range Interpretation Comments MAGNESIUM (BEAKER) (test code = 2.0 mg/dL 1.6-2.6 627) Brewery Worker ID - BURKEKEZIA LPT/qQVC9048-77-23 04:53:34 Test Item Value Reference Interpretation Comments Range Protime (test code = 13.7 See_Comment [Autom ated 7862-2) message] The system which generated this result transmitted reference range : 11.9 - 14.2 seconds. The reference range was not used to interpret this result as normal/abnormal . INR (test code = 1.07 See_Comment [Automated 3569-6) message] The system which generated this result transmitted reference range : <=5.90. The reference range was not used to interpret this result as normal/abnormal . PTT (test code = 32.5 See_Comment [Automated 28946-5) message] The system which generated this result [...] valves. Lab Interpretation Normal (test code = 08736-0) [facility]PT/hKQM2917-78-12 04:53:34 Test Item Value Reference Interpretation Comments [...] PTT (test code = 32.5 See_Comment [Automated 22057-3) message] The system which generated this result [...] valves. Lab Interpretation Normal (test code = 49853-9) [facility]PT/lWPU6655-47-48 04:53:34 Test Item Value Reference Interpretation Comments [...] PTT (test code = 32.5 See_Comment [Automated 56522-1) message] The system which generated this result [...] valves. Lab Interpretation Normal (test code = 56503-4) [facility]PT/oCYG7736-41-39 04:53:34 Test Item Value Reference Interpretation Comments [...] PTT (test code = 32.5 See_Comment [Automated 18109-5) message] The system which generated this result [...] valves. Lab Interpretation Normal (test code = 63828-9) [facility]PT/zZDM9999-13-91 04:53:34 Test Item Value Reference Interpretation Comments [...] PTT (test code = 32.5 See_Comment [Automated 18209-9) message] The system which generated this result [...] valves. Lab Interpretation Normal (test code = 06028-2) [facility]PT/bWSD4689-90-85 04:53:34 Test Item Value Reference Interpretation Comments Range Protime (test code = 13.7 See_Comment [Autom Tivityd 5902-2) message] The system which generated this [...] PTT (test code = 32.5 See_Comment [Automated 67050-2) message] The system which generated this result [...] valves. Lab Interpretation Normal (test code = 14639-9) [facility]PT/hBOW6426-34-84 04:53:34 Test Item Value Reference Interpretation Comments [...] PTT (test code = 32.5 See_Comment [Automated 22271-7) message] The system which generated this result [...] valves. Lab Interpretation Normal (test code = 58369-8) [facility]PT/xRSG6287-90-31 04:53:34 Test Item Value Reference Interpretation Comments Range Protime (test code = 13.7 See_Comment [Autom ated 5902-2) message] The system which generated this result transmitted reference range : 11.9 - 14.2 seconds. The reference range was not used to interpret this result as normal/abnormal . INR (test code = 1.07 See_Comment [Automated 7891-6) message] The system which generated this result transmitted reference range : <=5.90. The reference range was not used to interpret this result as normal/abnormal . PTT (test code = 32.5 See_Comment [Automated 32256-9) message] The system which generated this result [...] valves. Lab Interpretation Normal (test code = 42010-1) [facility]PT/kQCK8306-32-71 04:53:34 Test Item Value Reference Interpretation Comments [...] PTT (test code = 32.5 See_Comment [Automated 38038-0) message] The system which generated this result [...] valves. Lab Interpretation Normal (test code = 52117-4) [facility]PT/fNXR1300-56-88 04:53:34 Test Item Value Reference Interpretation Comments [...] PTT (test code = 32.5 See_Comment [Automated 02594-7) message] The system which generated this result [...] valves. Lab Interpretation Normal (test code = 20807-8) [facility]PT/dGSM1738-38-54 04:53:34 Test Item Value Reference Interpretation Comments Range Protime (test code = 13.7 See_Comment [Autom ated 5902-2) message] The system which generated this result transmitted reference range : 11.9 - 14.2 seconds. The reference range was not used to interpret this result as normal/abnormal . INR (test code = 1.07 See_Comment [Automated 0111-6) message] The system which generated this result transmitted reference range : <=5.90. The reference range was not used to interpret this result as normal/abnormal . PTT (test code = 32.5 See_Comment [Automated 77122-6) message] The system which generated this result [...] valves. Lab Interpretation Normal (test code = 60606-6) [facility]PT/jGWJ4866-62-80 04:53:34 Test Item Value Reference Interpretation Comments [...] PTT (test code = 32.5 See_Comment [Automated 65610-2) message] The system which generated this result [...] valves. Lab Interpretation Normal (test code = 55818-7) [facility]PT/uGMH0114-93-13 04:53:34 Test Item Value Reference Interpretation Comments [...] PTT (test code = 32.5 See_Comment [Automated 99204-0) message] The system which generated this result [...] valves. Lab Interpretation Normal (test code = 31470-0) [facility]PT/tXFN7622-91-35 04:53:34 Test Item Value Reference Interpretation Comments [...] PTT (test code = 32.5 See_Comment [Automated 12047-7) message] The system which generated this result [...] valves. Lab Interpretation Normal (test code = 34254-3) [facility]PT/oYXF3746-55-90 04:53:34 Test Item Value Reference Interpretation Comments Range Protime (test code = 13.7 See_Comment [Autom ated 5902-2) message] The system which generated this result transmitted reference range : 11.9 - 14.2 seconds. The reference range was not used to interpret this result as normal/abnormal . INR (test code = 1.07 <=5.90 6301-6) PTT (test code = 32.5 See_Comment [Automated 26454-9) message] The system which generated this result [...] valves. Lab Interpretation Normal (test code = 90368-1) [facility]PT/vMRG4105-76-67 04:53:34 Test Item Value Reference Interpretation Comments [...] PTT (test code = 32.5 See_Comment [Automated 08091-0) message] The system which generated this result [...] valves. Lab Interpretation Normal (test code = 12924-8) [facility]PT/sNPD0711-57-97 04:53:34 Test Item Value Reference Interpretation Comments Range Protime (test code = 13.7 See_Comment [Autom ated 5902-2) message] The system which generated this result transmitted reference range : 11.9 - 14.2 seconds. The reference range was not used to interpret this result as normal/abnormal . INR (test code = 1.07 See_Comment [Automated 8311-6) message] The system which generated this result transmitted reference range : <=5.90. The reference range was not used to interpret this result as normal/abnormal . PTT (test code = 32.5 See_Comment [Automated 23567-7) message] The system which generated this result [...] valves. Lab Interpretation Normal (test code = 89990-6) [facility]PT/ULLD3696-41-82 04:53:34 Test Item Value Reference Range Interpretation [...] mechanical heart valves.CBC W/PLT COUNT & AUTO CFLQWTQBHVNH3279-38-73 04:46:52 Test Item Value Reference Range Interpretation [...] PERCENT (BEAKER) (test code = 2801) POCT-GLUCOSE RCJOF3390-38-76 11:21:11 Test Item Value Reference Range Interpretation Comments POC-GLUCOSE METER 204 mg/dL 70-110 H : TESTED A T [facility] 6720 (BEAKER) (test code = [facility], 1538) [address]: Brewery Worker/Techni kelle ID = [id number] for Ag Meeta moody POCT-GLUCOSE HOUIR4308-97-96 07:42:50 Test Item Value Reference Range Interpretation Comments POC-GLUCOSE METER 226 mg/dL 70-110 H : TESTED A T [facility] 6720 (BEAKER) (test code = [facility], 1538) 84393: Brewery Worker/Techni kelle ID = [id number] for Ag laviniarMeeta BASIC METABOLIC [id number] 05:13:30 Test Item Value Reference Range Interpretation [...] S NOT APPLICABLE FOR DIALYSIS PATIEN TS. Brewery Worker ID - PIAYA [id number] 05:11:53 Test Item Value Reference Range Interpretation Comments PHOSPHORUS (BEAKER) (test code = 3.3 mg/dL 2.3-4.7 604) Brewery Worker ID Bassam GAINES [id number] 05:11:52 Test Item Value Reference Range Interpretation Comments MAGNESIUM (BEAKER) (test code = 2.0 mg/dL 1.6-2.6 627) Brewery Worker ID Bassam GAINES LCBC W/PLT COUNT & AUTO [id number] 04:23:17 Test Item Value Reference Range Interpretation [...] PERCENT (BEAKER) (test code = 2801) POCT-GLUCOSE [id number] 17:21:48 Test Item Value Reference Range Interpretation Comments POC-GLUCOSE METER 209 mg/dL 70-110 H : TESTED A T [facility] 6720 (BEAKER) (test code = [facility], 1538) 41928: Brewery Worker/Techni kelle ID = [id number] for PADMINI ALMANZAR POCT-GLUCOSE [id number] 12:56:45 Test Item Value Reference Range Interpretation Comments POC-GLUCOSE METER 81 mg/dL 70-110 : TESTED A T [facility] 6720 (BEAKER) (test code = [facility], 1538) 52724: Brewery Worker/Techni kelle ID = [id number] for PADMINI GRAY [id number] 09:21:04 Test Item Value Reference Range Interpretation Comments Ferritin (test code = 1418.54 ng/mL 5.00-275.00 H 2276-4) BRANDI (test code = BRANDI) Brewery Worker NORAH Hernandes Lab Interpretation (test Abnormal code = 80625-5) [facility]04 Test Item Value Reference Range Interpretation Comments Ferritin (test code = 1418.54 ng/mL 5.00-275.00 H 2276-4) BRANDI (test code = BRANDI) Brewery Worker NORAH Hernandes Lab Interpretation (test Abnormal code = 41101-2) [facility] 09:21:04 Test Item Value Reference Range Interpretation Comments Ferritin (test code = 1418.54 ng/mL 5.00-275.00 H 2276-4) BRANDI (test code = BRANDI) Brewery Worker ID - HIEN M Lab Interpretation (test Abnormal code = 79866-3) [facility] 09:21:04 Test Item Value Reference Range Interpretation Comments Ferritin (test code = 1418.54 ng/mL 5.00-275.00 H 2276-4) BRANDI (test code = BRANDI) Brewery Worker ID - HIEN M Lab Interpretation (test Abnormal code = 20477-2) [facility] 09:21:04 Test Item Value Reference Range Interpretation Comments Ferritin (test code = 1418.54 ng/mL 5.00-275.00 H 2276-4) BRANDI (test code = BRANDI) Brewery Worker ID - HIEN M Lab Interpretation (test Abnormal code = 47542-4) [facility]2022-03-12 09:21:04 Test Item Value Reference Range Interpretation Comments Ferritin (test code = 1418.54 ng/mL 5.00-275.00 H 2276-4) BRANDI (test code = BRANDI) Brewery Worker ID - HIEN M Lab Interpretation (test Abnormal code = 46232-3) [facility] 09:21:04 Test Item Value Reference Range Interpretation Comments Ferritin (test code = 1418.54 ng/mL 5.00-275.00 H 2276-4) BRANDI (test code = BRANDI) Brewery Worker ID - HIEN M Lab Interpretation (test Abnormal code = 72580-9) [facility] 09:21:04 Test Item Value Reference Range Interpretation Comments Ferritin (test code = 1418.54 ng/mL 5.00-275.00 H 2276-4) BRANDI (test code = BRANDI) Brewery Worker ID - HIEN M Lab Interpretation (test Abnormal code = 32321-9) [facility] 09:21:04 Test Item Value Reference Range Interpretation Comments Ferritin (test code = 1418.54 ng/mL 5.00-275.00 H 2276-4) BRANDI (test code = BRANDI) Brewery Worker ID - HIEN M Lab Interpretation (test Abnormal code = 22900-3) [facility] 09:21:04 Test Item Value Reference Range Interpretation Comments Ferritin (test code = 1418.54 ng/mL 5.00-275.00 H 2276-4) BRANDI (test code = BRANDI) Brewery Worker ID - HIEN M Lab Interpretation (test Abnormal code = 81280-5) [facility]2022-03-12 09:21:04 Test Item Value Reference Range Interpretation Comments Ferritin (test code = 1418.54 ng/mL 5.00-275.00 H 2276-4) BRANDI (test code = BRANDI) Brewery Worker ID - HIEN M Lab Interpretation (test Abnormal code = 30100-5) [facility]2022-03-12 09:21:04 Test Item Value Reference Range Interpretation Comments Ferritin (test code = 1418.54 ng/mL 5.00-275.00 H 2276-4) BRANDI (test code = BRANDI) Brewery Worker ID - HIEN M Lab Interpretation (test Abnormal code = 90007-6) [facility]2022-03-12 09:21:04 Test Item Value Reference Range Interpretation Comments Ferritin (test code = 1418.54 ng/mL 5.00-275.00 H 2276-4) BRANDI (test code = BRANDI) Brewery Worker ID - HIEN M Lab Interpretation (test Abnormal code = 53418-5) [facility]2022-03-12 09:21:04 Test Item Value Reference Range Interpretation Comments Ferritin (test code = 1418.54 ng/mL 5.00-275.00 H 2276-4) BRANDI (test code = BRANDI) Brewery Worker ID - HIEN M Lab Interpretation (test Abnormal code = 61990-3) [facility] 09:21:04 Test Item Value Reference Range Interpretation Comments Ferritin (test code = 1418.54 ng/mL 5.00-275.00 H 2276-4) BRANDI (test code = BRANDI) Brewery Worker ID - HIEN M Lab Interpretation (test Abnormal code = 80096-3) [facility]2022-03-12 09:21:04 Test Item Value Reference Range Interpretation Comments Ferritin (test code = 1418.54 ng/mL 5.00-275.00 H 2276-4) BRANDI (test code = BRANDI) Brewery Worker ID - HIEN M Lab Interpretation (test Abnormal code = 50587-2) [facility] 09:21:04 Test Item Value Reference Range Interpretation Comments Ferritin (test code = 1418.54 ng/mL 5.00-275.00 H 2276-4) BRANDI (test code = BRANDI) Brewery Worker ID - HIEN M Lab Interpretation (test Abnormal code = 56013-8) [facility] 09:21:04 Test Item Value Reference Range Interpretation Comments FERRITIN (BEAKER) (test code = 1418.54 ng/mL 5.00-275.00 H 361) Brewery Worker ID - HIENCata Bridges, TIBC, % sat. (without ferritin)2021-06-13 09:01:39 Test Item Value Reference Range Interpretation Comments Iron (test code = 2498-4) 75.0 ug/dL 40.0-160.0 TIBC (test code = 2500-7) 145 ug/dL 250-450 L Iron % Saturation (test 52 % 20-55 code = 2502-3) BRANDI (test code = BRANDI) Brewery Worker ID - HIEN M Lab Interpretation (test Abnormal code = 94852-8) [facility], TIBC, % sat. (without ferritin)2021-06-13 09:01:39 Test Item Value Reference Range Interpretation Comments Iron (test code = 2498-4) 75.0 ug/dL 40.0-160.0 TIBC (test code = 2500-7) 145 ug/dL 250-450 L Iron % Saturation (test 52 % 20-55 code = 2502-3) BRANDI (test code = BRANDI) Brewery Worker ID - HIEN M Lab Interpretation (test Abnormal code = 21540-9) [facility], TIBC, % sat. (without ferritin)2021-06-13 09:01:39 Test Item Value Reference Range Interpretation Comments Iron (test code = 2498-4) 75.0 ug/dL 40.0-160.0 TIBC (test code = 2500-7) 145 ug/dL 250-450 L Iron % Saturation (test 52 % 20-55 code = 2502-3) BRANDI (test code = BRANDI) Brewery Worker ID - HIEN M Lab Interpretation (test Abnormal code = 81689-9) [facility], TIBC, % sat. (without ferritin)2021-06-13 09:01:39 Test Item Value Reference Range Interpretation Comments Iron (test code = 2498-4) 75.0 ug/dL 40.0-160.0 TIBC (test code = 2500-7) 145 ug/dL 250-450 L Iron % Saturation (test 52 % 20-55 code = 2502-3) BRANDI (test code = BRANDI) Brewery Worker ID - HIEN M Lab Interpretation (test Abnormal code = 19905-8) [facility], TIBC, % sat. (without ferritin)2021-06-13 09:01:39 Test Item Value Reference Range Interpretation Comments Iron (test code = 2498-4) 75.0 ug/dL 40.0-160.0 TIBC (test code = 2500-7) 145 ug/dL 250-450 L Iron % Saturation (test 52 % 20-55 code = 2502-3) BRANDI (test code = BRANDI) Brewery Worker ID - HIEN M Lab Interpretation (test Abnormal code = 44431-6) [facility], TIBC, % sat. (without ferritin)2021-06-13 09:01:39 Test Item Value Reference Range Interpretation Comments Iron (test code = 2498-4) 75.0 ug/dL 40.0-160.0 TIBC (test code = 2500-7) 145 ug/dL 250-450 L Iron % Saturation (test 52 % 20-55 code = 2502-3) BRANDI (test code = BRANDI) Brewery Worker ID - HIEN M Lab Interpretation (test Abnormal code = 24425-5) [facility], TIBC, % sat. (without ferritin)2021-06-13 09:01:39 Test Item Value Reference Range Interpretation Comments Iron (test code = 2498-4) 75.0 ug/dL 40.0-160.0 TIBC (test code = 2500-7) 145 ug/dL 250-450 L Iron % Saturation (test 52 % 20-55 code = 2502-3) BRANDI (test code = BRANDI) Brewery Worker ID - HIEN M Lab Interpretation (test Abnormal code = 44761-2) [facility], TIBC, % sat. (without ferritin)2021-06-13 09:01:39 Test Item Value Reference Range Interpretation Comments Iron (test code = 2498-4) 75.0 ug/dL 40.0-160.0 TIBC (test code = 2500-7) 145 ug/dL 250-450 L Iron % Saturation (test 52 % 20-55 code = 2502-3) BRANDI (test code = BRANDI) Brewery Worker ID - HIEN M Lab Interpretation (test Abnormal code = 30327-2) [facility], TIBC, % sat. (without ferritin)2021-06-13 09:01:39 Test Item Value Reference Range Interpretation Comments Iron (test code = 2498-4) 75.0 ug/dL 40.0-160.0 TIBC (test code = 2500-7) 145 ug/dL 250-450 L Iron % Saturation (test 52 % 20-55 code = 2502-3) BRANDI (test code = BRANDI) Brewery Worker ID - HIEN M Lab Interpretation (test Abnormal code = 57637-1) [facility], TIBC, % sat. (without ferritin)2021-06-13 09:01:39 Test Item Value Reference Range Interpretation Comments Iron (test code = 2498-4) 75.0 ug/dL 40.0-160.0 TIBC (test code = 2500-7) 145 ug/dL 250-450 L Iron % Saturation (test 52 % 20-55 code = 2502-3) BRANDI (test code = BRANDI) Brewery Worker ID - HIEN M Lab Interpretation (test Abnormal code = 45691-5) [facility], TIBC, % sat. (without ferritin)2021-06-13 09:01:39 Test Item Value Reference Range Interpretation Comments Iron (test code = 2498-4) 75.0 ug/dL 40.0-160.0 TIBC (test code = 2500-7) 145 ug/dL 250-450 L Iron % Saturation (test 52 % 20-55 code = 2502-3) BRANDI (test code = BRANDI) Brewery Worker ID - HIEN M Lab Interpretation (test Abnormal code = 77117-0) [facility], TIBC, % sat. (without ferritin)2021-06-13 09:01:39 Test Item Value Reference Range Interpretation Comments Iron (test code = 2498-4) 75.0 ug/dL 40.0-160.0 TIBC (test code = 2500-7) 145 ug/dL 250-450 L Iron % Saturation (test 52 % 20-55 code = 2502-3) BRANDI (test code = BRANDI) Brewery Worker ID - HIEN M Lab Interpretation (test Abnormal code = 05143-4) [facility], TIBC, % sat. (without ferritin)2021-06-13 09:01:39 Test Item Value Reference Range Interpretation Comments Iron (test code = 2498-4) 75.0 ug/dL 40.0-160.0 TIBC (test code = 2500-7) 145 ug/dL 250-450 L Iron % Saturation (test 52 % 20-55 code = 2502-3) BRANDI (test code = BRANDI) Brewery Worker ID - HIEN M Lab Interpretation (test Abnormal code = 41075-4) [facility], TIBC, % sat. (without ferritin)2021-06-13 09:01:39 Test Item Value Reference Range Interpretation Comments Iron (test code = 2498-4) 75.0 ug/dL 40.0-160.0 TIBC (test code = 2500-7) 145 ug/dL 250-450 L Iron % Saturation (test 52 % 20-55 code = 2502-3) BRANDI (test code = BRANDI) Brewery Worker ID - HIEN M Lab Interpretation (test Abnormal code = 81195-8) [facility], TIBC, % sat. (without ferritin)2021-06-13 09:01:39 Test Item Value Reference Range Interpretation Comments Iron (test code = 2498-4) 75.0 ug/dL 40.0-160.0 TIBC (test code = 2500-7) 145 ug/dL 250-450 L Iron % Saturation (test 52 % 20-55 code = 2502-3) BRANDI (test code = BRANDI) Brewery Worker ID - HIEN M Lab Interpretation (test Abnormal code = 68396-0) [facility], TIBC, % sat. (without ferritin)2021-06-13 09:01:39 Test Item Value Reference Range Interpretation Comments Iron (test code = 2498-4) 75.0 ug/dL 40.0-160.0 TIBC (test code = 2500-7) 145 ug/dL 250-450 L Iron % Saturation (test 52 % 20-55 code = 2502-3) BRANDI (test code = BRANDI) Brewery Worker ID - HIEN Hernandes Lab Interpretation (test Abnormal code = 66653-6) [facility], [facility], % sat. (without ferritin)2021-06-13 09:01:39 Test Item Value Reference Range Interpretation Comments Iron (test code = 2498-4) 75.0 ug/dL 40.0-160.0 TIBC (test code = 2500-7) 145 ug/dL 250-450 L Iron % Saturation (test 52 % 20-55 code = 2502-3) BRANDI (test code = BRANDI) Brewery Worker ID - HIEN Hernandes Lab Interpretation (test Abnormal code = 82442-3) [facility], TIBC, % SAT. (WITHOUT FERRITIN)2021-06-13 09:01:39 Test Item Value Reference Range Interpretation Comments IRON (BEAKER) (test code = 547) 75.0 ug/dL 40.0-160.0 TOTAL IRON BINDING CAPACITY 145 ug/dL 250-450 L (BEAKER) (test code = 769) IRON % SATURATION (2) (BEAKER) 52 % 20-55 (test code = 2590) Brewery Worker ID Bassam STANFORD MPOCT-GLUCOSE [id number] 08:51:07 Test Item Value Reference Range Interpretation Comments POC-GLUCOSE METER 106 mg/dL 70-110 : TESTED A T [facility] 6720 (BEAKER) (test code = [facility] [place], 1538) 77575: Brewery Worker/Techni kelle ID = [id number] for PADMINI ALMANZAR BASIC METABOLIC [id number] 04:21:54 Test Item Value Reference Range Interpretation [...] S NOT APPLICABLE FOR DIALYSIS PATIEN TS. Brewery Worker ID - HIEN [id number] 04:17:34 Test Item Value Reference Range Interpretation Comments MAGNESIUM (BEAKER) (test code = 2.0 mg/dL 1.6-2.6 627) Brewery Worker ID - HIEN [id number] 04:17:34 Test Item Value Reference Range Interpretation Comments PHOSPHORUS (BEAKER) (test code = 3.1 mg/dL 2.3-4.7 604) Brewery Worker ID - HIEN MCBC W/PLT COUNT & AUTO [id number] 03:49:10 Test Item Value Reference Range Interpretation [...] PERCENT (BEAKER) (test code = 2801) SARS-COV2/RT-PCR ([facility])2021-06-13 02:28:08 Test Item Value Reference Range Interpretation Comments SARS-COV2/RT-PCR (test code = Negative Negative 1633875) Negative result for this test determines that [...] 564(g) of the Act.Testing was performed using [employer] SARS-CoV-2 assay.Fact Sheet for Healthcare Providers:https://www.[facility]/ct/RT SARS-CoV-2 HCP Fact Sheet 51- 608009.pdfFact Sheet for Healthcare Patients:https://www.[facility]/ct/RT SARS-CoV-2 Patient Fact Sheet EN 51-491660Y7.pdfPOCT-GLUCOSE [id number] 02:01:02 Test Item Value Reference Range Interpretation Comments POC-GLUCOSE METER 98 mg/dL 70-110 : TESTED A T [facility] 6720 (BEAKER) (test code = [facility], 1538) 75822: Brewery Worker/Techni kelle ID = [id number] for SREEKANTH ROSS POCT-GLUCOSE [id number] 02:00:06 Test Item Value Reference Range Interpretation Comments POC-GLUCOSE METER 151 mg/dL 70-110 H : TESTED A T [facility] 6720 (BEAKER) (test code = [facility] [place], 1538) 26134: Brewery Worker/Techni kelle ID = [id number] for LL REY, CECYA BLOOD [id number] 23:01:20 Test Item Value Reference Range Interpretation Comments CULTURE (BEAKER) (test No growth in 5 days code = 1095) BLOOD [id number] 23:01:19 Test Item Value Reference Range Interpretation Comments CULTURE (BEAKER) (test No growth in 5 days code = 1095) CT, BRAIN, WITHOUT [id number] 08:55:00Unlisted Reason for Exam - Click Yes [...] MDReport Verified Date/Time: 06/12/2021 08:55:52 Reading Location: [address] Neuro Reading Room POCT-GLUCOSE [id number] 07:42:49 Test Item Value Reference Range Interpretation Comments POC-GLUCOSE METER 113 mg/dL 70-110 H : TESTED A T [facility] 6720 (BEAKER) (test code = [facility] [place], 1538) 733[address]: Brewery Worker/Techni kelle ID = [id number] for Sheryl Enciso POCT-GLUCOSE [id number] 07:42:05 Test Item Value Reference Range Interpretation Comments POC-GLUCOSE METER 131 mg/dL 70-110 H : TESTED A T [facility] 6720 (BEAKER) (test code = [facility], 1538) 72738: Brewery Worker/Techni kelle ID = [id number] for JI MONTAÑO POCT-GLUCOSE [id number] 07:32:16 Test Item Value Reference Range Interpretation Comments POC-GLUCOSE METER 127 mg/dL 70-110 H : TESTED A T [facility] 6720 (BEAKER) (test code = [facility], 1538) 91943: Brewery Worker/Techni kelle ID = [id number] for GURINDER VILLA CT, CTANGIO [id number] 03:03:00Reason for exam:->Symptoms onset less than 6 hours and NIHSS 6 or greater [facility] 1955 Sex: [...] the film. IMPRESSION: No evidence of a kot[place] of Pandey proximal branch vessel occlusion or [...] and interstitial pulmonary edema. Signed: Nikole Baron [facility] Verified Date/Time: 06/12/2021 03:03:56 CT, CAROTID, [id number] 03:03:00Reason for exam:- >Symptoms onset less than 6 hours and NIHSS 6 or greater [facility] : 1955 Sex: FFINAL [...] the film. IMPRESSION: No evidence of a k[place] of Pandey proximal branch vessel occlusion or [...] Nikole Baron Verified Date/Time: 06/12/2021 03:03:56 PROTHROMBIN [id number] 01:46:16 Test Item Value Reference Range Interpretation Comments PROTIME (BEAKER) 15.0 seconds 11.9-14.2 H (test code = 759) INR (BEAKER) (test 1.20 See_Comment [Automat ed message] code = 370) The system [employer] generated this result transmitted ref erence range: <=5.90. The reference range was not used to int erpret this result as normal/abnormal . RECOMMENDED COUMADIN/WARFARIN INR THERAPY RANGESSTANDARD DOSE: 2.0 - 3.0 Includes: PROPHYLAXIS for venous thrombosis, systemic embolization; TREATMENT for venous thrombosis and/or pulmonary embolus.HIGH RISK: Target INR is 2.5-3.5 for patients with mechanical heart valves.CBC W/PLT COUNT & AUTO [id number] 01:45:34 Test Item Value Reference Range Interpretation [...] (test code = 2801) CT, BRAIN, WITHOUT [id number] 01:38:00Unlisted Reason for Exam - Click Yes [...] 01:38:35 High Sensitivity Troponin I ([facility]/Jin Only)2021-06-12 01:35:31 Test Item Value Reference Range Interpretation Comments Troponin I HS (test 231 pg/ml See_Comment H [Automa levi code = 16431-8) message] The system which generated this result transmitted reference range : <=17. The reference range was not used to interpret this result as normal/abnormal . BRANDI (test code = Brewery Worker ID - BRANDI) DBThe SIGN LANGUAGE TRANSLATOR STAT High Sensitivity Troponin-I results should be used in conjunction with other diagnostic information such as ECG, clinical observations and information, and patient symptoms to aid in the diagnosis of AR. Lab Interpretation Abnormal (test code = 82040-2) [facility] 2021-06-12 01:35:31 Test Item Value Reference Range Interpretation Comments Troponin I HS (test 231 pg/ml See_Comment H [Automa levi code = 96650-0) message] The system which generated this result transmitted reference range : <=17. The reference range was not used to interpret this result as normal/abnormal . BRANDI (test code = Brewery Worker ID - BRANDI) [employer] SIGN LANGUAGE TRANSLATOR STAT High Sensitivity Troponin-I results should be used in conjunction with other diagnostic information such as ECG, clinical observations and information, and patient symptoms to aid in the diagnosis of AR. Lab Interpretation Abnormal (test code = 11447-9) [facility] ([facility] Only[facility] 2021-06-12 01:35:31 Test Item Value Reference Range Interpretation Comments Troponin I HS (test 231 pg/ml See_Comment H [Automa levi code = 86718-7) message] The system which generated this result transmitted reference range : <=17. The reference range was not used to interpret this result as normal/abnormal . BRANDI (test code = Brewery Worker ID - BRANDI) DBThe SIGN LANGUAGE TRANSLATOR STAT High Sensitivity Troponin-I results should be used in conjunction with other diagnostic information such as ECG, clinical observations and information, and patient symptoms to aid in the diagnosis of AR. Lab Interpretation Abnormal (test code = 42111-7) [facility] 2021-06-12 01:35:31 Test Item Value Reference Range Interpretation Comments Troponin I HS (test 231 pg/ml See_Comment H [Automa levi code = 05784-5) message] The system which generated this result transmitted reference range : <=17. The reference range was not used to interpret this result as normal/abnormal . BRANDI (test code = Brewery Worker ID - BRANDI) DBThe SIGN LANGUAGE TRANSLATOR STAT High Sensitivity Troponin-I results should be used in conjunction with other diagnostic information such as ECG, clinical observations and information, and patient symptoms to aid in the diagnosis of AR. Lab Interpretation Abnormal (test code = 99900-7) [facility] 2021-06-12 01:35:31 Test Item Value Reference Range Interpretation Comments Troponin I HS (test 231 pg/ml See_Comment H [Automa levi code = 67001-7) message] The system which generated this result transmitted reference range : <=17. The reference range was not used to interpret this result as normal/abnormal . BRANDI (test code = Brewery Worker ID - BRANDI) DBThe SIGN LANGUAGE TRANSLATOR STAT High Sensitivity Troponin-I results should be used in conjunction with other diagnostic information such as ECG, clinical observations and information, and patient symptoms to aid in the diagnosis of AR. Lab Interpretation Abnormal (test code = 15683-6) [facility] 2021-06-12 01:35:31 Test Item Value Reference Range Interpretation Comments Troponin I HS (test 231 pg/ml See_Comment H [Automa levi code = 78163-1) message] The system which generated this result transmitted reference range : <=17. The reference range was not used to interpret this result as normal/abnormal . BRANDI (test code = Brewery Worker ID - BRANDI) DBThe SIGN LANGUAGE TRANSLATOR STAT High Sensitivity Troponin-I results should be used in conjunction with other diagnostic information such as ECG, clinical observations and information, and patient symptoms to aid in the diagnosis of AR. Lab Interpretation Abnormal (test code = 84043-5) [facility] 2021-06-12 01:35:31 Test Item Value Reference Range Interpretation Comments Troponin I HS (test 231 pg/ml See_Comment H [Automa levi code = 71029-5) message] The system which generated this result transmitted reference range : <=17. The reference range was not used to interpret this result as normal/abnormal . BRANDI (test code = Brewery Worker ID - BRANDI) DBThe SIGN LANGUAGE TRANSLATOR STAT High Sensitivity Troponin-I results should be used in conjunction with other diagnostic information such as ECG, clinical observations and information, and patient symptoms to aid in the diagnosis of AR. Lab Interpretation Abnormal (test code = 84290-9) [facility]Jin Only) 2021-06-12 01:35:31 Test Item Value Reference Range Interpretation Comments Troponin I HS (test 231 pg/ml See_Comment H [Automa levi code = 25321-3) message] The system which generated this result transmitted reference range : <=17. The reference range was not used to interpret this result as normal/abnormal . BRANDI (test code = Brewery Worker ID - BRANDI) DBThe SIGN LANGUAGE TRANSLATOR STAT High Sensitivity Troponin-I results should be used in conjunction with other diagnostic information such as ECG, clinical observations and information, and patient symptoms to aid in the diagnosis of AR. Lab Interpretation Abnormal (test code = 37010-0) [facility]Jin Only) 2021-06-12 01:35:31 Test Item Value Reference Range Interpretation Comments Troponin I HS (test 231 pg/ml See_Comment H [Automa levi code = 04126-8) message] The system which generated this result transmitted reference range : <=17. The reference range was not used to interpret this result as normal/abnormal . BRANDI (test code = Brewery Worker ID - BRANDI) DBThe SIGN LANGUAGE TRANSLATOR STAT High Sensitivity Troponin-I results should be used in conjunction with other diagnostic information such as ECG, clinical observations and information, and patient symptoms to aid in the diagnosis of AR. Lab Interpretation Abnormal (test code = 02052-0) [facility] ([facility]Jin Only) 2021-06-12 01:35:31 Test Item Value Reference Range Interpretation Comments Troponin I HS (test 231 pg/ml See_Comment H [Automa levi code = 48518-3) message] The system which generated this result transmitted reference range : <=17. The reference range was not used to interpret this result as normal/abnormal . BRANDI (test code = Brewery Worker ID - BRANDI) DBThe SIGN LANGUAGE TRANSLATOR STAT High Sensitivity Troponin-I results should be used in conjunction with other diagnostic information such as ECG, clinical observations and information, and patient symptoms to aid in the diagnosis of AR. Lab Interpretation Abnormal (test code = 27505-1) [facility] ([facility]Jin Only) 2021-06-12 01:35:31 Test Item Value Reference Range Interpretation Comments Troponin I HS (test 231 pg/ml See_Comment H [Automa levi code = 44291-0) message] The system which generated this result transmitted reference range : <=17. The reference range was not used to interpret this result as normal/abnormal . BRANDI (test code = Brewery Worker ID - BRANDI) DBThe SIGN LANGUAGE TRANSLATOR STAT High Sensitivity Troponin-I results should be used in conjunction with other diagnostic information such as ECG, clinical observations and information, and patient symptoms to aid in the diagnosis of AR. Lab Interpretation Abnormal (test code = 16022-2) [facility]Jin Only[facility] 2021-06-12 01:35:31 Test Item Value Reference Range Interpretation Comments Troponin I HS (test 231 pg/ml See_Comment H [Automa levi code = 36383-6) message] The system which generated this result transmitted reference range : <=17. The reference range was not used to interpret this result as normal/abnormal . BRANDI (test code = Brewery Worker ID - BRANDI) DBThe SIGN LANGUAGE TRANSLATOR STAT High Sensitivity Troponin-I results should be used in conjunction with other diagnostic information such as ECG, clinical observations and information, and patient symptoms to aid in the diagnosis of AR. Lab Interpretation Abnormal (test code = 92093-7) [facility] Only[facility] 2021-06-12 01:35:31 Test Item Value Reference Range Interpretation Comments Troponin I HS (test 231 pg/ml See_Comment H [Automa levi code = 08307-6) message] The system which generated this result transmitted reference range : <=17. The reference range was not used to interpret this result as normal/abnormal . BRANDI (test code = Brewery Worker ID - BRANDI) DBThe SIGN LANGUAGE TRANSLATOR STAT High Sensitivity Troponin-I results should be used in conjunction with other diagnostic information such as ECG, clinical observations and information, and patient symptoms to aid in the diagnosis of AR. Lab Interpretation Abnormal (test code = 56694-9) [facility] Only[facility] 2021-06-12 01:35:31 Test Item Value Reference Range Interpretation Comments Troponin I HS (test 231 pg/ml See_Comment H [Automa levi code = 74704-8) message] The system which generated this result transmitted reference range : <=17. The reference range was not used to interpret this result as normal/abnormal . BRANDI (test code = Brewery Worker ID - BRANDI) DBThe SIGN LANGUAGE TRANSLATOR STAT High Sensitivity Troponin-I results should be used in conjunction with other diagnostic information such as ECG, clinical observations and information, and patient symptoms to aid in the diagnosis of AR. Lab Interpretation Abnormal (test code = 82142-2) [facility] ([facility]Jin Only) 2021-06-12 01:35:31 Test Item Value Reference Range Interpretation Comments Troponin I HS (test code 231 pg/ml <=17 H = 58718-3) BRANDI (test code = BRANDI) Brewery Worker ID - DBThe SIGN LANGUAGE TRANSLATOR STAT High Sensitivity Troponin-I results should be used in conjunction with other diagnostic information such as ECG, clinical observations and information, and patient symptoms to aid in the diagnosis of AR. Lab Interpretation (test Abnormal code = 95716-8) [facility] ([facility] Only[facility] 2021-06-12 01:35:31 Test Item Value Reference Range Interpretation Comments Troponin I HS (test 231 pg/ml See_Comment H [Automa levi code = 84442-8) message] The system which generated this result transmitted reference range : <=17. The reference range was not used to interpret this result as normal/abnormal . BRANDI (test code = Brewery Worker ID - BRANDI) DBThe SIGN LANGUAGE TRANSLATOR STAT High Sensitivity Troponin-I results should be used in conjunction with other diagnostic information such as ECG, clinical observations and information, and patient symptoms to aid in the diagnosis of AR. Lab Interpretation Abnormal (test code = 74271-0) [facility] ([facility]in Only) 2021-06-12 01:35:31 Test Item Value Reference Range Interpretation Comments Troponin I HS (test 231 pg/ml See_Comment H [Automa levi code = 98932-7) message] The system which generated this result transmitted reference range : <=17. The reference range was not used to interpret this result as normal/abnormal . BRANDI (test code = Brewery Worker ID - BRANDI) DBThe SIGN LANGUAGE TRANSLATOR STAT High Sensitivity Troponin-I results should be used in conjunction with other diagnostic information such as ECG, clinical observations and information, and patient symptoms to aid in the diagnosis of AR. Lab Interpretation Abnormal (test code = 39491-9) [facility] TROPONIN [id number] 01:35:31 Test Item Value Reference Range Interpretation Comments HIGH SENSITIVITY 231 pg/ml See_Comment H [Automated message] TROPONIN I (test code The sy stem which = 2513306) generated this result transmitted ref erence range: <=17. Th e reference range was not used to int erpret this result as normal/abnormal . Brewery Worker ID - DBThe SIGN LANGUAGE TRANSLATOR STAT High Sensitivity Troponin-I results should be used in conjunctionwith other diagnostic information such as ECG, clinical observations and information, and patient symptoms to aid in the diagnosis of AR.BASIC METABOLIC [id number] 01:29:11 Test Item Value Reference Range Interpretation [...] S NOT APPLICABLE FOR DIALYSIS PATIEN TS. Brewery Worker ID - [id number] 01:28:34 Test Item Value Reference Range Interpretation Comments PHOSPHORUS (BEAKER) 4.6 mg/dL 2.3-4.7 Specimen slightly (test code = 604) hemolyzed Brewery Worker ID - [id number] 01:28:33 Test Item Value Reference Range Interpretation Comments MAGNESIUM (BEAKER) 2.2 mg/dL 1.6-2.6 Specimen slightly (test code = 627) hemolyzed Brewery Worker ID - DBLactic acid, [id number] 01:26:32 Test Item Value Reference Range Interpretation Comments Lactate, Venous (test code = 0.87 mmol/L 0.50-2.20 2872) BRANDI (test code = BRANDI) Brewery Worker ID - DB Lab Interpretation (test Normal code = 95488-9) [facility] [id number] 01:26:32 Test Item Value Reference Range Interpretation Comments Lactate, Venous (test code = 0.87 mmol/L 0.50-2.20 2872) BRANDI (test code = BRANDI) Brewery Worker ID - DB Lab Interpretation (test Normal code = 74780-5) [facility], [id number] 01:26:32 Test Item Value Reference Range Interpretation Comments Lactate, Venous (test code = 0.87 mmol/L 0.50-2.20 2872) BRANDI (test code = BRANDI) Brewery Worker ID - DB Lab Interpretation (test Normal code = 37511-6) [facility], [id number] 01:26:32 Test Item Value Reference Range Interpretation Comments Lactate, Venous (test code = 0.87 mmol/L 0.50-2.20 2872) BRANDI (test code = BRANDI) Brewery Worker ID - DB Lab Interpretation (test Normal code = 76834-4) [facility], [id number] 01:26:32 Test Item Value Reference Range Interpretation Comments Lactate, Venous (test code = 0.87 mmol/L 0.50-2.20 2872) BRANDI (test code = BRANDI) Brewery Worker ID - DB Lab Interpretation (test Normal code = 58574-9) [facility] [id number] 01:26:32 Test Item Value Reference Range Interpretation Comments Lactate, Venous (test code = 0.87 mmol/L 0.50-2.20 2872) BRANDI (test code = BRANDI) Brewery Worker ID - DB Lab Interpretation (test Normal code = 18080-4) [facility], [id number] 01:26:32 Test Item Value Reference Range Interpretation Comments Lactate, Venous (test code = 0.87 mmol/L 0.50-2.20 2872) BRANDI (test code = BRANDI) Brewery Worker ID - DB Lab Interpretation (test Normal code = 13181-0) [facility], [id number] 01:26:32 Test Item Value Reference Range Interpretation Comments Lactate, Venous (test code = 0.87 mmol/L 0.50-2.20 2872) BRANDI (test code = BRANDI) Brewery Worker ID - DB Lab Interpretation (test Normal code = 13499-1) [facility], [id number] 01:26:32 Test Item Value Reference Range Interpretation Comments Lactate, Venous (test code = 0.87 mmol/L 0.50-2.20 2872) BRANDI (test code = BRANDI) Brewery Worker ID - DB Lab Interpretation (test Normal code = 60873-4) [facility], [id number] 01:26:32 Test Item Value Reference Range Interpretation Comments Lactate, Venous (test code = 0.87 mmol/L 0.50-2.20 2872) BRANDI (test code = BRANDI) Brewery Worker ID - DB Lab Interpretation (test Normal code = 45388-3) [facility], [id number] 01:26:32 Test Item Value Reference Range Interpretation Comments Lactate, Venous (test code = 0.87 mmol/L 0.50-2.20 2872) BRANDI (test code = BRANDI) Brewery Worker ID - DB Lab Interpretation (test Normal code = 38616-5) [facility], [id number] 01:26:32 Test Item Value Reference Range Interpretation Comments Lactate, Venous (test code = 0.87 mmol/L 0.50-2.20 2872) BRANDI (test code = BRANDI) Brewery Worker ID - DB Lab Interpretation (test Normal code = 63098-1) [facility], [id number] 01:26:32 Test Item Value Reference Range Interpretation Comments Lactate, Venous (test code = 0.87 mmol/L 0.50-2.20 2872) BRANDI (test code = BRANDI) Brewery Worker ID - DB Lab Interpretation (test Normal code = 70078-4) [facility], [id number] 01:26:32 Test Item Value Reference Range Interpretation Comments Lactate, Venous (test code = 0.87 mmol/L 0.50-2.20 2872) BRANDI (test code = BRANDI) Brewery Worker ID - DB Lab Interpretation (test Normal code = 90656-9) [facility], [id number] 01:26:32 Test Item Value Reference Range Interpretation Comments Lactate, Venous (test code = 0.87 mmol/L 0.50-2.20 2872) BRANDI (test code = BRANDI) Brewery Worker ID - DB Lab Interpretation (test Normal code = 82689-0) [facility], [id number] 01:26:32 Test Item Value Reference Range Interpretation Comments Lactate, Venous (test code = 0.87 mmol/L 0.50-2.20 2872) BRANDI (test code = BRANDI) Brewery Worker ID - DB Lab Interpretation (test Normal code = 28479-2) [facility], [id number] 01:26:32 Test Item Value Reference Range Interpretation Comments Lactate, Venous (test code = 0.87 mmol/L 0.50-2.20 2872) BRANDI (test code = BRANDI) Brewery Worker ID - DB Lab Interpretation (test Normal code = 44088-7) [facility] [id number] 01:26:32 Test Item Value Reference Range Interpretation Comments LACTATE BLOOD VENOUS (2) (BEAKER) 0.87 mmol/L 0.50-2.20 (test code = 2872) Brewery Worker ID - DBPOCT-GLUCOSE [id number] 16:24:28 Test Item Value Reference Range Interpretation Comments POC-GLUCOSE METER 244 mg/dL 70-110 H : TESTED A T [facility] 6720 (BEAKER) (test code = [place], 1538) [address]: Brewery Worker/Techni kelle ID = [id number] for Maranda Menjivar POCT-GLUCOSE [id number] 11:29:05 Test Item Value Reference Range Interpretation Comments POC-GLUCOSE METER 168 mg/dL 70-110 H : TESTED A T [facility] 6720 (BEAKER) (test code = [facility], 1538) [address]703: Brewery Worker/Techni kelle ID = [id number] for Maranda Menjivar POCT-GLUCOSE [id number] 06:45:50 Test Item Value Reference Range Interpretation Comments POC-GLUCOSE METER 132 mg/dL 70-110 H : TESTED A T [facility] 6720 (BEAKER) (test code = [facility], 1538) [address]97: Brewery Worker/Techni kelle ID = [id number] for UG GHADA HAMLIN BASIC METABOLIC [id number] 05:08:08 Test Item Value Reference Range Interpretation [...] S NOT APPLICABLE FOR DIALYSIS PATIEN TS. Brewery Worker ID - HIEN [id number] 04:56:38 Test Item Value Reference Range Interpretation Comments MAGNESIUM (BEAKER) (test code = 1.9 mg/dL 1.6-2.6 627) Brewery Worker ID - HIEN [id number] 04:56:38 Test Item Value Reference Range Interpretation Comments PHOSPHORUS (BEAKER) (test code = 3.7 mg/dL 2.3-4.7 604) Brewery Worker ID - HIEN MCBC W/PLT COUNT & AUTO [id number] 04:33:28 Test Item Value Reference Range Interpretation [...] = 2801) CBC W/PLT COUNT & AUTO [id number] 22:57:11 Test Item Value Reference Range Interpretation [...] = 2801) RAD, CHEST, 1 VIEW, NON [id number] 22:44:00Reason for exam:- >dyspneaShould this be performed at the bedside?->Yes [facility] : 1955 Sex: [...] signed by: BRAXTON QUINTERO M.D. on 0:44 [id number] 22:43:07 Test Item Value Reference Range Interpretation Comments POC-Glucose (test code = 118 mg/dL 70-110 H : [facility] [address] [place] [address], [address]70 30: Brewery Worker/Techni kelle ID = [id number] for MARFIL, JOSE ARMANDO Lab Interpretation (test Abnormal code = 85874-3) [id number] 22:43:07 Test Item Value Reference Range Interpretation Comments POC-Glucose (test code = 118 mg/dL 70-110 H : [facility] [address] [place] [address], 770 30: Brewery Worker/Techni kelle ID = [id number] for MARFIL, JOSE ARMANDO Lab Interpretation (test Abnormal code = 03421-5) [facility]2022-03-09 22:43:07 Test Item Value Reference Range Interpretation Comments POC-Glucose (test code = 118 mg/dL 70-110 H : [facility] [address] [place] [address], 770 30: Brewery Worker/Techni kelle ID = [id number] for MARFIL, JOSE ARMANDO Lab Interpretation (test Abnormal code = 33055-4) [facility]2022-03-09 22:43:07 Test Item Value Reference Range Interpretation Comments POC-Glucose (test code = 118 mg/dL 70-110 H : [facility] [address] [place] [address], 770 30: Brewery Worker/Techni kelle ID = [id number] for MARFIL, JOSE ARMANDO Lab Interpretation (test Abnormal code = 64243-0) [facility]2022-03-09 22:43:07 Test Item Value Reference Range Interpretation Comments POC-Glucose (test code = 118 mg/dL 70-110 H : [facility] [address] [place] [address], 770 30: Brewery Worker/Techni kelle ID = [id number] for MARFIL, JOSE ARMANDO Lab Interpretation (test Abnormal code = 39626-5) [facility]2022-03-09 22:43:07 Test Item Value Reference Range Interpretation Comments POC-Glucose (test code = 118 mg/dL 70-110 H : T ESTED AT [facility] 1855) [address] [place] [address], 770 30: Brewery Worker/Techni kelle ID = [id number] for MARFIL, JOSE ARMANDO Lab Interpretation (test Abnormal code = 83913-8) [facility]2022-03-09 22:43:07 Test Item Value Reference Range Interpretation Comments POC-Glucose (test code = 118 mg/dL 70-110 H : T ESTED AT [facility] 1855) [address] [place] [address], 770 30: Brewery Worker/Techni kelle ID = [id number] for MARFIL, JOSE ARMANDO Lab Interpretation (test Abnormal code = 94833-6) [facility]2022-03-09 22:43:07 Test Item Value Reference Range Interpretation Comments POC-Glucose (test code = 118 mg/dL 70-110 H : T ESTED AT [facility] 1855) [address] [place] [address], 770 30: Brewery Worker/Techni kelle ID = [id number] for MARFIL, JOSE ARMANDO Lab Interpretation (test Abnormal code = 39983-8) [facility]2022-03-09 22:43:07 Test Item Value Reference Range Interpretation Comments POC-Glucose (test code = 118 mg/dL 70-110 H : T ESTED AT [facility] 1855) [address] [place] [address], 770 30: Brewery Worker/Techni kelle ID = [id number] for MARFIL, JOSE ARMANDO Lab Interpretation (test Abnormal code = 75712-2) [facility]2022-03-09 22:43:07 Test Item Value Reference Range Interpretation Comments POC-Glucose (test code = 118 mg/dL 70-110 H : T ESTED AT [facility] 1855) [address] [place] [address], 770 30: Brewery Worker/Techni kelle ID = [id number] for MARFIL, JOSE ARMANDO Lab Interpretation (test Abnormal code = 26776-8) [facility]2022-03-09 22:43:07 Test Item Value Reference Range Interpretation Comments POC-Glucose (test code = 118 mg/dL 70-110 H : T ESTED AT [facility] 1855) [address] [place] [address], 770 30: Brewery Worker/Techni kelle ID = [id number] for MARFIL, JOSE ARMANDO Lab Interpretation (test Abnormal code = 20841-2) [facility] [id number] 22:43:07 Test Item Value Reference Range Interpretation Comments POC-Glucose (test code = 118 mg/dL 70-110 H : T ESTED AT [facility] 1855) [address] [place] [address], 770 30: Brewery Worker/Techni kelle ID = [id number] for MARFIL, JOSE ARMANDO Lab Interpretation (test Abnormal code = 96353-0) [facility]2022-03-09 22:43:07 Test Item Value Reference Range Interpretation Comments POC-Glucose (test code = 118 mg/dL 70-110 H : T ESTED AT [facility] 1855) [address] [place] [address], 770 30: Brewery Worker/Techni kelle ID = [id number] for MARFIL, JOSE ARMANDO Lab Interpretation (test Abnormal code = 97169-5) [facility]2022-03-09 22:43:07 Test Item Value Reference Range Interpretation Comments POC-Glucose (test code = 118 mg/dL 70-110 H : [facility] [address] [place] [address], [address]70 30: Brewery Worker/Techni kelle ID = [id number] for MARFIL, JOSE ARMANDO Lab Interpretation (test Abnormal code = 28482-7) [facility]2022-03-09 22:43:07 Test Item Value Reference Range Interpretation Comments POC-Glucose (test code = 118 mg/dL 70-110 H : [facility] [address] [place] [address], 770 30: Brewery Worker/Techni kelle ID = [id number] for MARFIL, JOSE ARMANDO Lab Interpretation (test Abnormal code = 17648-3) [facility]2022-03-09 22:43:07 Test Item Value Reference Range Interpretation Comments POC-Glucose (test code = 118 mg/dL 70-110 H : T ESTED AT [facility] 1855) [address] [place] [address], 770 30: Brewery Worker/Techni kelle ID = [id number] for MARFIL, JOSE ARMANDO Lab Interpretation (test Abnormal code = 80689-6) [facility]2022-03-09 22:43:07 Test Item Value Reference Range Interpretation Comments POC-Glucose (test code = 118 mg/dL 70-110 H : T ESTED AT [facility] 1855) [address] [facility], 770 30: Brewery Worker/Techni kelle ID = [id number] for MARFIL, JOSE ARMANDO Lab Interpretation (test Abnormal code = 80064-9) [facility]POCT-[id number] 22:43:07 Test Item Value Reference Range Interpretation Comments POC-GLUCOSE (BEAKER) 118 mg/dL 70-110 H : TESTE D AT [facility] 6720 (test code = 1855) [facility], [address]: Brewery Worker/Techni kelle ID = [id number] for MARF IL, JOSE ARMANDO QMKG-[id number] 22:43:06 Test Item Value Reference Range Interpretation Comments POC-Hemoglobin (test code 8.2 g/dL 12.0-15.0 L : TESTED AT [facility] = 1856) [address] [facility], 770 30: Brewery Worker/Techni kelle ID = [id number] for MARFIL, JOSE ARMANDO Lab Interpretation (test Abnormal code = 01795-7) [facility] CenterXxymhcPOPL-[id number] 22:43:06 Test Item Value Reference Range Interpretation Comments POC-Hematocrit (test code 24 % 36-45 L : = 1857) Brewery Worker/Techni kelle ID = [id number] for MARFIL, JOSE ARMANDO Lab Interpretation (test Abnormal code = 35070-6) [facility] CenterBcbsmhMYKD-TOAIBTLCLS4209-59-09 22:43:06 Test Item Value Reference Range Interpretation Comments POC-Hemoglobin (test code 8.2 g/dL 12.0-15.0 L : [facility] [address] [place] [address], [address]70 30: Brewery Worker/Techni kelle ID = [id number] for MARFIL, JOSE ARMANDO Lab Interpretation (test Abnormal code = 37356-9) [facility] CenterRrefxuIQKB-[id number] 22:43:06 Test Item Value Reference Range Interpretation Comments POC-Hematocrit (test code 24 % 36-45 L : = 1857) Brewery Worker/Techni kelle ID = [id number] for MARFIL, JOSE ARMANDO Lab Interpretation (test Abnormal code = 97598-5) [facility]-HMEMVWJHLX1098-18-27 22:43:06 Test Item Value Reference Range Interpretation Comments POC-Hemoglobin (test code 8.2 g/dL 12.0-15.0 L : TESTED AT [facility] = 1856) [address] [place] [address], 770 30: Brewery Worker/Techni kelle ID = [id number] for MARFIL, JOSE ARMANDO Lab Interpretation (test Abnormal code = 62465-0) [facility]-[id number] 22:43:06 Test Item Value Reference Range Interpretation Comments POC-Hematocrit (test code 24 % 36-45 L : = 1857) Brewery Worker/Techni kelle ID = [id number] for MARFIL, JOSE ARMANDO Lab Interpretation (test Abnormal code = 54073-4) [facility]-[id number] 22:43:06 Test Item Value Reference Range Interpretation Comments POC-Hemoglobin (test code 8.2 g/dL 12.0-15.0 L : TESTED AT [facility] = 1856) [address] [place] [address], 770 30: Brewery Worker/Techni kelle ID = [id number] for MARFIL, JOSE ARMANDO Lab Interpretation (test Abnormal code = 53946-4) [facility]-[id number] 22:43:06 Test Item Value Reference Range Interpretation Comments POC-Hematocrit (test code 24 % 36-45 L : = 1857) Brewery Worker/Techni kelle ID = [id number] for MARFIL, JOSE ARMANDO Lab Interpretation (test Abnormal code = 51718-4) [facility]-VCCRWPXCYU9503-36-48 22:43:06 Test Item Value Reference Range Interpretation Comments POC-Hemoglobin (test code 8.2 g/dL 12.0-15.0 L : TESTED AT [facility] = 1856) [address] [place] [address], 770 30: Brewery Worker/Techni kelle ID = [id number] for MARFIL, JOSE ARMANDO Lab Interpretation (test Abnormal code = 28053-3) [facility]-JPTSVVKARX9662-30-08 22:43:06 Test Item Value Reference Range Interpretation Comments POC-Hematocrit (test code 24 % 36-45 L : = 1857) Brewery Worker/Techni kelle ID = [id number] for MARFIL, JOSE ARMANDO Lab Interpretation (test Abnormal code = 11199-3) [facility]-YGCLCXJBJM3285-21-53 22:43:06 Test Item Value Reference Range Interpretation Comments POC-Hemoglobin (test code 8.2 g/dL 12.0-15.0 L : [facility] [address] [place] [address], [address]70 30: Brewery Worker/Techni kelle ID = [id number] for MARFIL, JOSE ARMANDO Lab Interpretation (test Abnormal code = 98434-7) [facility]-[id number] 22:43:06 Test Item Value Reference Range Interpretation Comments POC-Hematocrit (test code 24 % 36-45 L : = 1857) Brewery Worker/Techni kelle ID = [id number] for MARFIL, JOSE ARMANDO Lab Interpretation (test Abnormal code = 29929-1) [facility]-[id number] 22:43:06 Test Item Value Reference Range Interpretation Comments POC-Hemoglobin (test code 8.2 g/dL 12.0-15.0 L : [place] [facility] [place] [address] [place] [address], [address] 30: Brewery Worker/Techni kelle ID = [id number] for MARFIL, JOSE ARMANDO Lab Interpretation (test Abnormal code = 20760-7) [facility]-[id number] 22:43:06 Test Item Value Reference Range Interpretation Comments POC-Hematocrit (test code 24 % 36-45 L : = 1857) Brewery Worker/Techni kelle ID = [id number] for MARFIL, JOSE ARMANDO Lab Interpretation (test Abnormal code = 95896-7) [facility]-[id number] 22:43:06 Test Item Value Reference Range Interpretation Comments POC-Hemoglobin (test code 8.2 g/dL 12.0-15.0 L : [facility] [facility] [place] 1856[place] [address] [place] [address], [address] 30: Brewery Worker/Techni kelle ID = [id number] for MARFIL, JOSE ARMANDO Lab Interpretation (test Abnormal code = 99501-9) [facility]-[id number] 22:43:06 Test Item Value Reference Range Interpretation Comments POC-Hematocrit (test code 24 % 36-45 L : = 1857) Brewery Worker/Techni kelle ID = [id number] for MARFIL, JOSE ARMANDO Lab Interpretation (test Abnormal code = 20767-5) [facility]-[id number] 22:43:06 Test Item Value Reference Range Interpretation Comments POC-Hemoglobin (test code 8.2 g/dL 12.0-15.0 L : TESTED AT [facility] = 1856) [address] [facility], 770 30: Brewery Worker/Techni kelle ID = [id number] for MARFIL, JOSE ARMANDO Lab Interpretation (test Abnormal code = 52933-6) [facility]-[id number] 22:43:06 Test Item Value Reference Range Interpretation Comments POC-Hematocrit (test code 24 % 36-45 L : = 1857) Brewery Worker/Techni kelle ID = [id number] for MARFIL, JOSE ARMANDO Lab Interpretation (test Abnormal code = 51831-5) [facility]-[id number] 22:43:06 Test Item Value Reference Range Interpretation Comments POC-Hemoglobin (test code 8.2 g/dL 12.0-15.0 L : TESTED AT [facility] = 1856) [address] [place] [address], 770 30: Brewery Worker/Techni kelle ID = [id number] for MARFIL, JOSE ARMANDO Lab Interpretation (test Abnormal code = 63036-8) [facility]-[id number] 22:43:06 Test Item Value Reference Range Interpretation Comments POC-Hematocrit (test code 24 % 36-45 L : = 1857) Brewery Worker/Techni kelle ID = [id number] for MARFIL, JOSE ARMANDO Lab Interpretation (test Abnormal code = 54317-9) [facility]-[id number] 22:43:06 Test Item Value Reference Range Interpretation Comments POC-Hemoglobin (test code 8.2 g/dL 12.0-15.0 L : TESTED AT [facility] = 1856) [address] [place] [address], [address] 30: Brewery Worker/Techni kelle ID = [id number] for MARFIL, JOSE ARMANDO Lab Interpretation (test Abnormal code = 48448-7) [facility]-[id number] 22:43:06 Test Item Value Reference Range Interpretation Comments POC-Hematocrit (test code 24 % 36-45 L : = 1857) Brewery Worker/Techni kelle ID = [id number] for MARFIL, JOSE ARMANDO Lab Interpretation (test Abnormal code = 32200-0) [facility]-[id number] 22:43:06 Test Item Value Reference Range Interpretation Comments POC-Hemoglobin (test code 8.2 g/dL 12.0-15.0 L : TESTED AT [facility] = 1856) [address] [place] [address], 770 30: Brewery Worker/Techni kelle ID = [id number] for MARFIL, JOSE ARMANDO Lab Interpretation (test Abnormal code = 76113-3) [facility]-[id number] 22:43:06 Test Item Value Reference Range Interpretation Comments POC-Hematocrit (test code 24 % 36-45 L : = 1857) Brewery Worker/Techni kelle ID = [id number] for MARFIL, JOSE ARMANDO Lab Interpretation (test Abnormal code = 95563-8) [facility]-[id number] 22:43:06 Test Item Value Reference Range Interpretation Comments POC-Hemoglobin (test code 8.2 g/dL 12.0-15.0 L : TESTED AT [facility] = 1856) [address] [place] [address], 770 30: Brewery Worker/Techni kelle ID = [id number] for MARFIL, JOSE ARMANDO Lab Interpretation (test Abnormal code = 13655-1) [facility]-[id number] 22:43:06 Test Item Value Reference Range Interpretation Comments POC-Hematocrit (test code 24 % 36-45 L : = 1857) Brewery Worker/Techni kelle ID = [id number] for MARFIL, JOSE ARMANDO Lab Interpretation (test Abnormal code = 86800-5) [facility]-[id number] 22:43:06 Test Item Value Reference Range Interpretation Comments POC-Hemoglobin (test code 8.2 g/dL 12.0-15.0 L : [place] [facility] [place] 1856[place] [address] [place] [address], 7[address] 30: Brewery Worker/Techni kelle ID = [id number] for MARFIL, JOSE ARMANDO Lab Interpretation (test Abnormal code = 21510-4) [facility]-[id number] 22:43:06 Test Item Value Reference Range Interpretation Comments POC-Hematocrit (test code 24 % 36-45 L : = 1857) Brewery Worker/Techni kelle ID = [id number] for MARFIL, JOSE ARMANDO Lab Interpretation (test Abnormal code = 65557-5) [facility]-[id number] 22:43:06 Test Item Value Reference Range Interpretation Comments POC-Hemoglobin (test code 8.2 g/dL 12.0-15.0 L : [place] [facility] [place] 1856[place] [address] [place] [address], 7[address] 30: Brewery Worker/Techni kelle ID = [id number] for MARFIL, JOSE ARMANDO Lab Interpretation (test Abnormal code = 57346-1) [facility]-[id number] 22:43:06 Test Item Value Reference Range Interpretation Comments POC-Hematocrit (test code 24 % 36-45 L : = 1857) Brewery Worker/Techni kelle ID = [id number] for MARFIL, JOSE ARMANDO Lab Interpretation (test Abnormal code = 93028-4) [facility]-[id number] 22:43:06 Test Item Value Reference Range Interpretation Comments POC-Hemoglobin (test code 8.2 g/dL 12.0-15.0 L : [place] [facility] [place] 1856[place] [address] [place] [address], 770 30: Brewery Worker/Techni kelle ID = [id number] for MARFIL, JOSE ARMANDO Lab Interpretation (test Abnormal code = 62012-2) [facility]-[id number] 22:43:06 Test Item Value Reference Range Interpretation Comments POC-Hematocrit (test code 24 % 36-45 L : = 1857) Brewery Worker/Techni kelle ID = [id number] for MARFIL, JOSE ARMANDO Lab Interpretation (test Abnormal code = 31718-5) [facility]-[id number] 22:43:06 Test Item Value Reference Range Interpretation Comments POC-Hemoglobin (test code 8.2 g/dL 12.0-15.0 L : TESTED AT [facility] = 1856) [address] [place] [address], 770 30: Brewery Worker/Techni kelle ID = [id number] for MARFIL, JOSE ARMANDO Lab Interpretation (test Abnormal code = 59723-7) [facility]fnpkfSVWY-WKGYYTBVXA6399-13-09 22:43:06 Test Item Value Reference Range Interpretation Comments POC-Hematocrit (test code 24 % 36-45 L : = 1857) Brewery Worker/Techni kelle ID = [id number] for MARFIL, JOSE ARMANDO Lab Interpretation (test Abnormal code = 54398-9) [facility]ZhwkgtXIFX-YLEDEJUBSL9279-21-09 22:43:06 Test Item Value Reference Range Interpretation Comments POC-HEMOGLOBIN 8.2 g/dL 12.0-15.0 L : TESTED AT [facility] 67 (AKASH) (test code = [facility] [place] [facility], 185) [address]: Brewery Worker/Techni kelle ID = [id number] for MARF IL, JOSE ARMANDO RZXO-[id number] 22:43:06 Test Item Value Reference Range Interpretation Comments POC-HEMATOCRIT 24 % 36-45 L : Brewery Worker/Te chnician ID = (BEAKER) (test code = 764691 for MARFIL, JOSE ARMANDO 1857) [facility]-Bvxinirmt6743-91-09 22:43:05 Test Item Value Reference Range Interpretation Comments POC-Potassium (test code 3.4 meq/L 3.6-5.5 L : T ESTED AT [facility] = 1540) [address] [facility], 770 30: Brewery Worker/Techni kelle ID = [id number] for MARFIL, JOSE ARMANDO Lab Interpretation (test Abnormal code = 99388-2) [facility]-Jbiwwv4516-14-81 22:43:05 Test Item Value Reference Range Interpretation Comments POC-Sodium (test code = 137 meq/L 135-148 : TE STED AT [facility] 1542) [address] [place] [address], 770 30: Brewery Worker/Techni kelle ID = [id number] for MARFIL, JOSE ARMANDO Lab Interpretation (test Normal code = 49190-4) [facility]-Hbgndhzcz9978-69-75 22:43:05 Test Item Value Reference Range Interpretation Comments POC-Potassium (test code 3.4 meq/L 3.6-5.5 L : T ESTED AT [facility] = 1540) [address] [place] [address], 770 30: Brewery Worker/Techni kelle ID = [id number] for MARFIL, JOSE ARMANDO Lab Interpretation (test Abnormal code = 39249-7) [facility]-Iojtrp4805-45-99 22:43:05 Test Item Value Reference Range Interpretation Comments POC-Sodium (test code = 137 meq/L 135-148 : TE STED AT [facility] 1542) [address] [place] [address], 770 30: Brewery Worker/Techni kelle ID = [id number] for MARFIL, JOSE ARMANDO Lab Interpretation (test Normal code = 58006-7) [facility]-Tdzvspewk7273-52-97 22:43:05 Test Item Value Reference Range Interpretation Comments POC-Potassium (test code 3.4 meq/L 3.6-5.5 L : T ESTED AT [facility] = 1540) [address] [place] [address], [facility] 30: Brewery Worker/Techni kelle ID = [id number] for MARFIL, JOSE ARMANDO Lab Interpretation (test Abnormal code = 81635-9) [facility]-Parwqz0015-79-84 22:43:05 Test Item Value Reference Range Interpretation Comments POC-Sodium (test code = 137 meq/L 135-148 : TE STED AT [facility] 1542) [address] [place] [address], 770 30: Brewery Worker/Techni kelle ID = [id number] for MARFIL, JOSE ARMANDO Lab Interpretation (test Normal code = 83501-9) [facility]-Pjwhfzfxu4396-06-22 22:43:05 Test Item Value Reference Range Interpretation Comments POC-Potassium (test code 3.4 meq/L 3.6-5.5 L : T ESTED AT [facility] = 1540) [address] [place] [address], 770 30: Brewery Worker/Techni kelle ID = [id number] for MARFIL, JOSE ARMANDO Lab Interpretation (test Abnormal code = 74225-5) [facility] 22:43:05 Test Item Value Reference Range Interpretation Comments POC-Sodium (test code = 137 meq/L 135-148 : TE STED AT [facility] 1542) [address] [place] [address], 770 30: Brewery Worker/Techni kelle ID = [id number] for MARFIL, JOSE ARMANDO Lab Interpretation (test Normal code = 35129-1) [facility]-Zitbagwla0280-81-14 22:43:05 Test Item Value Reference Range Interpretation Comments POC-Potassium (test code 3.4 meq/L 3.6-5.5 L : T ESTED AT [facility] = 1540) [address] [place] [address], 770 30: Brewery Worker/Techni kelle ID = [id number] for MARFIL, JOSE ARMANDO Lab Interpretation (test Abnormal code = 41971-1) [facility]-Dglidy0737-40-11 22:43:05 Test Item Value Reference Range Interpretation Comments POC-Sodium (test code = 137 meq/L 135-148 : TE STED AT [facility] 1542) [address] [place] [address], 770 30: Brewery Worker/Techni kelle ID = [id number] for MARFIL, JOSE ARMANDO Lab Interpretation (test Normal code = 28642-3) [facility]-Ohbzvzofi8783-01-71 22:43:05 Test Item Value Reference Range Interpretation Comments POC-Potassium (test code 3.4 meq/L 3.6-5.5 L : T ESTED AT [facility] = 1540) [address] [place] [address], 770 30: Brewery Worker/Techni kelle ID = [id number] for MARFIL, JOSE ARMANDO Lab Interpretation (test Abnormal code = 60464-2) [facility]-Mhxoxf0604-96-81 22:43:05 Test Item Value Reference Range Interpretation Comments POC-Sodium (test code = 137 meq/L 135-148 : TE STED AT [facility] 1542) [address] [place] [address], 770 30: Brewery Worker/Techni kelle ID = [id number] for MARFIL, JOSE ARMANDO Lab Interpretation (test Normal code = 35697-3) [facility]-Vcouseqzk6772-80-79 22:43:05 Test Item Value Reference Range Interpretation Comments POC-Potassium (test code 3.4 meq/L 3.6-5.5 L : T ESTED AT [facility] = 1540) [address] [place] [address], 770 30: Brewery Worker/Techni kelle ID = [id number] for MARFIL, JOSE ARMANDO Lab Interpretation (test Abnormal code = 56684-0) [facility]-Yxgfgg7610-69-29 22:43:05 Test Item Value Reference Range Interpretation Comments POC-Sodium (test code = 137 meq/L 135-148 : TE STED AT [facility] 1542) [address] [place] [address], 770 30: Brewery Worker/Techni kelle ID = [id number] for MARFIL, JOSE ARMANDO Lab Interpretation (test Normal code = 12442-6) [facility]-Qxvfrruux9559-98-40 22:43:05 Test Item Value Reference Range Interpretation Comments POC-Potassium (test code 3.4 meq/L 3.6-5.5 L : T ESTED AT [facility] = 1540) [address] [place] [address], 7[address] 30: Brewery Worker/Techni kelle ID = [id number] for MARFIL, JOSE ARMANDO Lab Interpretation (test Abnormal code = 35742-5) [facility]ipkx2352-90-87 22:43:05 Test Item Value Reference Range Interpretation Comments POC-Sodium (test code = 137 meq/L 135-148 : TE STED AT [facility] 1542) [address] [place] [address], [address] 30: Brewery Worker/Techni kelle ID = [id number] for MARFIL, JOSE ARMANDO Lab Interpretation (test Normal code = 97807-4) [facility]-Pfxhjfagi4658-05-22 22:43:05 Test Item Value Reference Range Interpretation Comments POC-Potassium (test code 3.4 meq/L 3.6-5.5 L : T ESTED AT [facility] = 1540) [address] [place] [address], [address]70 30: Brewery Worker/Techni kelle ID = [id number] for MARFIL, JOSE ARMANDO Lab Interpretation (test Abnormal code = 47474-2) [facility]-Ptsnwo2367-73-08 22:43:05 Test Item Value Reference Range Interpretation Comments POC-Sodium (test code = 137 meq/L 135-148 : TE STED AT [facility] 1542) [address] [place] [address], 770 30: Brewery Worker/Techni kelle ID = [id number] for MARFIL, JOSE ARMANDO Lab Interpretation (test Normal code = 75747-8) [facility]-Idwmtwnyy4389-08-85 22:43:05 Test Item Value Reference Range Interpretation Comments POC-Potassium (test code 3.4 meq/L 3.6-5.5 L : T ESTED AT [facility] = 1540) [address] [place] [address], [address] 30: Brewery Worker/Techni kelle ID = [id number] for MARFIL, JOSE ARMANDO Lab Interpretation (test Abnormal code = 64066-7) [facility]-Kghbmi1886-01-21 22:43:05 Test Item Value Reference Range Interpretation Comments POC-Sodium (test code = 137 meq/L 135-148 : TE STED AT [facility] 1542) [address] [place] [address], [address] 30: Brewery Worker/Techni kelle ID = [id number] for MARFIL, JOSE ARMANDO Lab Interpretation (test Normal code = 01519-2) [facility]-Avjorsstl5607-22-05 22:43:05 Test Item Value Reference Range Interpretation Comments POC-Potassium (test code 3.4 meq/L 3.6-5.5 L : T ESTED AT [facility] = 1540) [address] [place] [address], [address] 30: Brewery Worker/Techni kelle ID = [id number] for MARFIL, JOSE ARMANDO Lab Interpretation (test Abnormal code = 51831-2) [facility]vahtr0509-28-63 22:43:05 Test Item Value Reference Range Interpretation Comments POC-Sodium (test code = 137 meq/L 135-148 : TE STED AT [facility] 1542) [address] [place] [address], [address] 30: Brewery Worker/Techni kelle ID = [id number] for MARFIL, JOSE ARMANDO Lab Interpretation (test Normal code = 28858-3) [facility]-Qpyrdirtf4389-88-08 22:43:05 Test Item Value Reference Range Interpretation Comments POC-Potassium (test code 3.4 meq/L 3.6-5.5 L : T ESTED AT [facility] = 1540) [address] [place] [address], [address]70 30: Brewery Worker/Techni kelle ID = [id number] for MARFIL, JOSE ARMANDO Lab Interpretation (test Abnormal code = 87746-6) [facility] HospitalBafcnw1435-37-26 22:43:05 Test Item Value Reference Range Interpretation Comments POC-Sodium (test code = 137 meq/L 135-148 : TE STED AT [facility] 1542) [address] [facility], 770 30: Brewery Worker/Techni kelle ID = [id number] for MARFIL, JOSE ARMANDO Lab Interpretation (test Normal code = 94991-9) [facility]-Ptgnnpgir7482-72-32 22:43:05 Test Item Value Reference Range Interpretation Comments POC-Potassium (test code 3.4 meq/L 3.6-5.5 L : T ESTED AT [facility] = 1540) [address] [place] [address], [facility] 30: Brewery Worker/Techni kelle ID = [id number] for MARFIL, JOSE ARMANDO Lab Interpretation (test Abnormal code = 67377-1) [facility]-Hcdgdl6543-92-93 22:43:05 Test Item Value Reference Range Interpretation Comments POC-Sodium (test code = 137 meq/L 135-148 : TE STED AT [facility] 1542) [address] [place] [address], [facility] 30: Brewery Worker/Techni kelle ID = [id number] for MARFIL, JOSE ARMANDO Lab Interpretation (test Normal code = 18629-6) [facility]-Hldueewgr9160-57-82 22:43:05 Test Item Value Reference Range Interpretation Comments POC-Potassium (test code 3.4 meq/L 3.6-5.5 L : T ESTED AT [facility] = 1540) [address] [place] [address], [facility] 30: Brewery Worker/Techni kelle ID = [id number] for MARFIL, JOSE ARMANDO Lab Interpretation (test Abnormal code = 42889-5) [facility]-Atrcfg3914-45-25 22:43:05 Test Item Value Reference Range Interpretation Comments POC-Sodium (test code = 137 meq/L 135-148 : TE STED AT [facility] 1542) [address] [place] [address], [address]70 30: Brewery Worker/Techni kelle ID = [id number] for MARFIL, JOSE ARMANDO Lab Interpretation (test Normal code = 39695-4) [facility]-Ejdockviz5807-94-21 22:43:05 Test Item Value Reference Range Interpretation Comments POC-Potassium (test code 3.4 meq/L 3.6-5.5 L : T ESTED AT [facility] = 1540) [address] [place] [address], [address]70 30: Brewery Worker/Techni kelle ID = [id number] for MARFIL, JOSE ARMANDO Lab Interpretation (test Abnormal code = 58828-2) [facility]-Wfzslj1721-97-38 22:43:05 Test Item Value Reference Range Interpretation Comments POC-Sodium (test code = 137 meq/L 135-148 : TE STED AT [facility] 1542) [address] [place] [address], [address]70 30: Brewery Worker/Techni kelle ID = [id number] for MARFIL, JOSE ARMANDO Lab Interpretation (test Normal code = 18128-9) [facility]-Uljxzauxn3128-60-74 22:43:05 Test Item Value Reference Range Interpretation Comments POC-Potassium (test code 3.4 meq/L 3.6-5.5 L : T ESTED AT [facility] = 1540) [address] [place] [address], [address]70 30: Brewery Worker/Techni kelle ID = [id number] for MARFIL, JOSE ARMANDO Lab Interpretation (test Abnormal code = 79245-3) [facility]-Faufrn1182-76-68 22:43:05 Test Item Value Reference Range Interpretation Comments POC-Sodium (test code = 137 meq/L 135-148 : TE STED AT [facility] 1542) [address] [place] [address], [address]70 30: Brewery Worker/Techni kelle ID = [id number] for MARFIL, JOSE ARMANDO Lab Interpretation (test Normal code = 14232-2) [facility]-Wrgrcsrxi8502-52-55 22:43:05 Test Item Value Reference Range Interpretation Comments POC-Potassium (test code 3.4 meq/L 3.6-5.5 L : T ESTED AT [facility] = 1540) [address] [place] [address], [address]70 30: Brewery Worker/Techni kelle ID = [id number] for MARFIL, JOSE ARMANDO Lab Interpretation (test Abnormal code = 35704-9) [facility]-Edqvae2793-21-21 22:43:05 Test Item Value Reference Range Interpretation Comments POC-Sodium (test code = 137 meq/L 135-148 : TE STED AT [facility] 1542) [address] [place], [address] 30: Brewery Worker/Techni kelle ID = [id number] for MARFIL, JOSE ARMANDO Lab Interpretation (test Normal code = 60077-7) [facility]-PWCEYH4131-70-58 22:43:05 Test Item Value Reference Range Interpretation Comments POC-SODIUM (BEAKER) 137 meq/L 135-148 : TESTED AT [facility] 6720 (test code = 1542) [place], [address]: Brewery Worker/Techni kelle ID = [id number] for MARF IL, JOSE ARMANDO AEUN-[id number] 22:43:05 Test Item Value Reference Range Interpretation Comments POC-POTASSIUM 3.4 meq/L 3.6-5.5 L : TESTED AT [facility] 6720 (BEAKER) (test code [facility], = 1540) [address]: Brewery Worker/Techni kelle ID = [id number] for MARF IL, JOSE ARMANDO POC-Blood gases, czomiu8161-20-88 22:42:59 Test Item Value Reference Range Interpretation Comments Temp. Celsius-POC (test 101.3 code = 1834) FIO2-POC (test code = 28 1835) pH, Venous-POC (test 7.484 7.320-7.420 H : TESTE D AT [facility] code = 1842) [address] [facility] [place], [address] PCO2, Venous-POC (test 39.4 See_Comment L If [...] mated message] code = 1844) The system ic h generated this result transmit levi reference range : 25.0 - 40.0 mm Hg. The reference r alba was not used to interpret this result as normal/abnormal . SO2, Venous-POC (test 87.0 % 40.0-70.0 H code = 1845) HCO3, Venous-POC (test 29.3 meq/L 21.0-29.0 H code = 1846) BE, Venous-POC (test 6.0 meq/L -2.0-3.0 H : code = 1847) Brewery Worker/Techni kelle ID = [id number] for MARFIL, JOSE ARMANDO Lab Interpretation Abnormal (test code = 55302-0) [facility]-Blood gases, uulsup4864-56-32 22:42:59 Test Item Value Reference Range Interpretation Comments Temp. Celsius-POC (test 101.3 code = 1834) FIO2-POC (test code = 28 5) pH, Venous-POC (test 7.484 7.320-7.420 H : TESTE D AT [facility] code = 1842) [address] [facility] [place], [address] PCO2, Venous-POC (test 39.4 See_Comment L If [...] mated message] code = 1844) The system [employer] generated this result transmit levi reference range : 25.0 - 40.0 mm Hg. The reference r alba was not used to interpret this result as normal/abnormal . SO2, Venous-POC (test 87.0 % 40.0-70.0 H code = 1845) HCO3, Venous-POC (test 29.3 meq/L 21.0-29.0 H code = 1846) BE, Venous-POC (test 6.0 meq/L -2.0-3.0 H : code = 1847) Brewery Worker/Techni kelle ID = [id number] for MARFIL, JOSE ARMANDO Lab Interpretation Abnormal (test code = 37118-9) [facility]-Blood gases, pflnhg7800-56-44 22:42:59 Test Item Value Reference Range Interpretation Comments Temp. Celsius-POC (test 101.3 code = 1834) FIO2-POC (test code = 28 5) pH, Venous-POC (test 7.484 7.320-7.420 H : TESTE D AT [facility] code = 1842) [address] [facility] [place], [address] PCO2, Venous-POC (test 39.4 See_Comment L If [...] mated message] code = 1844) The system [employer] generated this result transmit levi reference range : 25.0 - 40.0 mm Hg. The reference r alba was not used to interpret this result as normal/abnormal . SO2, Venous-POC (test 87.0 % 40.0-70.0 H code = 1845) HCO3, Venous-POC (test 29.3 meq/L 21.0-29.0 H code = 1846) BE, Venous-POC (test 6.0 meq/L -2.0-3.0 H : code = 1847) Brewery Worker/Techni kelle ID = [id number] for VIMAL JOSE ARMANDO Lab Interpretation Abnormal (test code = 86001-9) [facility]-Blood gases, oewhbb0536-08-92 22:42:59 Test Item Value Reference Range Interpretation Comments Temp. Celsius-POC (test 101.3 code = 1834) FIO2-POC (test code = 28 1835) pH, Venous-POC (test 7.484 7.320-7.420 H : TESTE D AT [facility] code = 1842) [address] [facility] [place], [address] PCO2, Venous-POC (test 39.4 See_Comment L If [...] mated message] code = 1844) The system [employer] generated this result transmit levi reference range : 25.0 - 40.0 mm Hg. The reference r alba was not used to interpret this result as normal/abnormal . SO2, Venous-POC (test 87.0 % 40.0-70.0 H code = 1845) HCO3, Venous-POC (test 29.3 meq/L 21.0-29.0 H code = 1846) BE, Venous-POC (test 6.0 meq/L -2.0-3.0 H : code = 1847) Brewery Worker/Techni kelle ID = [id number] for MARFIL, JOSE ARMANDO Lab Interpretation Abnormal (test code = 18075-2) [facility]-Blood gases, [id number] 22:42:59 Test Item Value Reference Range Interpretation Comments Temp. Celsius-POC (test 101.3 code = 1834) FIO2-POC (test code = 28 1835) pH, Venous-POC (test 7.484 7.320-7.420 H : TESTE D AT [facility] code = 1842) [address] [facility] [place], [address] PCO2, Venous-POC (test 39.4 See_Comment L If [...] mated message] code = 1844) The system beneSolic h generated this result transmit levi reference range : 25.0 - 40.0 mm Hg. The reference r alba was not used to interpret this result as normal/abnormal . SO2, Venous-POC (test 87.0 % 40.0-70.0 H code = 1845) HCO3, Venous-POC (test 29.3 meq/L 21.0-29.0 H code = 1846) BE, Venous-POC (test 6.0 meq/L -2.0-3.0 H : code = 1847) Brewery Worker/Techni kelle ID = [id number] for MARFIL, JOSE ARMANDO Lab Interpretation Abnormal (test code = 85997-3) [facility]-Blood gases, [id number] 22:42:59 Test Item Value Reference Range Interpretation Comments Temp. Celsius-POC (test 101.3 code = 1834) FIO2-POC (test code = 28 1835) pH, Venous-POC (test 7.484 7.320-7.420 H : TESTE D AT [facility] code = 1842) [address] [facility] [place], [address] PCO2, Venous-POC (test 39.4 See_Comment L If [...] mated message] code = 1844) The system Pixel Qi generated this result transmit levi reference range : 25.0 - 40.0 mm Hg. The reference r alba was not used to interpret this result as normal/abnormal . SO2, Venous-POC (test 87.0 % 40.0-70.0 H code = 1845) HCO3, Venous-POC (test 29.3 meq/L 21.0-29.0 H code = 1846) BE, Venous-POC (test 6.0 meq/L -2.0-3.0 H : code = 1847) Brewery Worker/Techni kelle ID = [id number] for JOSE ARMANDO CELIS Lab Interpretation Abnormal (test code = 81772-9) [facility]-Blood gases, [id number] 22:42:59 Test Item Value Reference Range Interpretation Comments Temp. Celsius-POC (test 101.3 code = 1834) FIO2-POC (test code = 5) pH, Venous-POC (test 7.484 7.320-7.420 H : TESTE D AT [facility] code = 1842) [address] [facility] [place], [address] PCO2, Venous-POC (test 39.4 See_Comment L If [...] mated message] code = 1844) The system Pixel Qi generated this result transmit levi reference range : 25.0 - 40.0 mm Hg. The reference r alba was not used to interpret this result as normal/abnormal . SO2, Venous-POC (test 87.0 % 40.0-70.0 H code = 1845) HCO3, Venous-POC (test 29.3 meq/L 21.0-29.0 H code = 1846) BE, Venous-POC (test 6.0 meq/L -2.0-3.0 H : code = 1847) Brewery Worker/Techni kelle ID = [id number] for MARFIL, JOSE ARMANDO Lab Interpretation Abnormal (test code = 23161-3) [facility]-Blood gases, [id number] 22:42:59 Test Item Value Reference Range Interpretation Comments Temp. Celsius-POC (test 101.3 code = 1834) FIO2-POC (test code = 28 1835) pH, Venous-POC (test 7.484 7.320-7.420 H : TESTE D AT [facility] code = 1842) [address] [facility] [place], [address] PCO2, Venous-POC (test 39.4 See_Comment L If [...] mated message] code = 1844) The system Pixel Qi generated this result transmit levi reference range : 25.0 - 40.0 mm Hg. The reference r alba was not used to interpret this result as normal/abnormal . SO2, Venous-POC (test 87.0 % 40.0-70.0 H code = 1845) HCO3, Venous-POC (test 29.3 meq/L 21.0-29.0 H code = 1846) BE, Venous-POC (test 6.0 meq/L -2.0-3.0 H : code = 1847) Brewery Worker/Techni kelle ID = [id number] for MARFIL, JOSE ARMANDO Lab Interpretation Abnormal (test code = 78827-9) [facility]-Blood gases, [id number] 22:42:59 Test Item Value Reference Range Interpretation Comments Temp. Celsius-POC (test 101.3 code = 1834) FIO2-POC (test code = 28 5) pH, Venous-POC (test 7.484 7.320-7.420 H : TESTE D AT [facility] code = 1842) [address] [facility] [place], [address] PCO2, Venous-POC (test 39.4 See_Comment L If [...] mated message] code = 1844) The system Pixel Qi generated this result transmit levi reference range : 25.0 - 40.0 mm Hg. The reference r alba was not used to interpret this result as normal/abnormal . SO2, Venous-POC (test 87.0 % 40.0-70.0 H code = 1845) HCO3, Venous-POC (test 29.3 meq/L 21.0-29.0 H code = 1846) BE, Venous-POC (test 6.0 meq/L -2.0-3.0 H : code = 1847) Brewery Worker/Techni kelle ID = [id number] for VIMAL JOSE ARMANDO Lab Interpretation Abnormal (test code = 95184-9) [facility]-Blood gases, [id number] 22:42:59 Test Item Value Reference Range Interpretation Comments Temp. Celsius-POC (test 101.3 code = 1834) FIO2-POC (test code = 1834) pH, Venous-POC (test 7.484 7.320-7.420 H : TESTE D AT [facility] code = 1842) [address] [facility] [place], [address] PCO2, Venous-POC (test 39.4 See_Comment L If [...] mated message] code = 1844) The system Pixel Qi generated this result transmit levi reference range : 25.0 - 40.0 mm Hg. The reference r alba was not used to interpret this result as normal/abnormal . SO2, Venous-POC (test 87.0 % 40.0-70.0 H code = 1845) HCO3, Venous-POC (test 29.3 meq/L 21.0-29.0 H code = 1846) BE, Venous-POC (test 6.0 meq/L -2.0-3.0 H : code = 1847) Brewery Worker/Techni kelle ID = [id number] for WILFRIDO CELISDIE Lab Interpretation Abnormal (test code = 57052-8) [facility]-Blood gases, [id number] 22:42:59 Test Item Value Reference Range Interpretation Comments Temp. Celsius-POC (test 101.3 code = 1834) FIO2-POC (test code = 28 1835) pH, Venous-POC (test 7.484 7.320-7.420 H : TESTE D AT [facility] code = 1842) [address] [facility], [address] PCO2, Venous-POC (test 39.4 See_Comment L If [...] mated message] code = 1844) The system Pixel Qi generated this result transmit levi reference range : 25.0 - 40.0 mm Hg. The reference r alba was not used to interpret this result as normal/abnormal . SO2, Venous-POC (test 87.0 % 40.0-70.0 H code = 1845) HCO3, Venous-POC (test 29.3 meq/L 21.0-29.0 H code = 1846) BE, Venous-POC (test 6.0 meq/L -2.0-3.0 H : code = 1847) Brewery Worker/Techni kelle ID = [id number] for MARFIL, JOSE ARMANDO Lab Interpretation Abnormal (test code = 86186-1) [facility]-Blood gases, [id number] 22:42:59 Test Item Value Reference Range Interpretation Comments Temp. Celsius-POC (test 101.3 code = 1834) FIO2-POC (test code = 28 1834) pH, Venous-POC (test 7.484 7.320-7.420 H : TESTE D AT [facility] code = 1842) [address] [facility] [place], [address] PCO2, Venous-POC (test 39.4 See_Comment L If [...] mated message] code = 1844) The system Pixel Qi generated this result transmit levi reference range : 25.0 - 40.0 mm Hg. The reference r alba was not used to interpret this result as normal/abnormal . SO2, Venous-POC (test 87.0 % 40.0-70.0 H code = 1845) HCO3, Venous-POC (test 29.3 meq/L 21.0-29.0 H code = 1846) BE, Venous-POC (test 6.0 meq/L -2.0-3.0 H : code = 1847) Brewery Worker/Techni kelle ID = [id number] for MARFIL, JOSE ARMANDO Lab Interpretation Abnormal (test code = 44723-3) [facility]-Blood gases, [id number] 22:42:59 Test Item Value Reference Range Interpretation Comments Temp. Celsius-POC (test 101.3 code = 1834) FIO2-POC (test code = 28 5) pH, Venous-POC (test 7.484 7.320-7.420 H : TESTE D AT [facility] code = 1842) [address] [place], [address] PCO2, Venous-POC (test 39.4 See_Comment L If pO 2 is >180, pCO2 code = 1843) may be positive ly biased [Automat ed message] The sy stem which generated this result transmit levi reference range : 41.0 - 51.0 mm Hg. The reference r laba was not used to interpret this result as normal/abnormal . PO2, Venous-POC (test 53.0 See_Comment H [Auto mated message] code = 1844) The system Pixel Qi generated this result transmit levi reference range : 25.0 - 40.0 mm Hg. The reference r alba was not used to interpret this result as normal/abnormal . SO2, Venous-POC (test 87.0 % 40.0-70.0 H code = 1845) HCO3, Venous-POC (test 29.3 meq/L 21.0-29.0 H code = 1846) BE, Venous-POC (test 6.0 meq/L -2.0-3.0 H : code = 1847) Brewery Worker/Techni kelle ID = [id number] for JOSE ARMANDO CELIS Lab Interpretation Abnormal (test code = 05489-7) [facility]-Blood gases, [id number] 22:42:59 Test Item Value Reference Range Interpretation Comments Temp. Celsius-POC (test 101.3 code = 1834) FIO2-POC (test code = 28 1835) pH, Venous-POC (test 7.484 7.320-7.420 H : TESTE D AT [facility] code = 1842) [address] [facility] [place], [address] PCO2, Venous-POC (test 39.4 See_Comment L If [...] mated message] code = 1844) The system Pixel Qi generated this result transmit levi reference range : 25.0 - 40.0 mm Hg. The reference r alba was not used to interpret this result as normal/abnormal . SO2, Venous-POC (test 87.0 % 40.0-70.0 H code = 1845) HCO3, Venous-POC (test 29.3 meq/L 21.0-29.0 H code = 1846) BE, Venous-POC (test 6.0 meq/L -2.0-3.0 H : code = 1847) Brewery Worker/Techni kelle ID = [id number] for MARFIL, JOSE ARMANDO Lab Interpretation Abnormal (test code = 18838-1) [facility]-Blood gases, [id number] 22:42:59 Test Item Value Reference Range Interpretation Comments Temp. Celsius-POC (test 101.3 code = 1834) FIO2-POC (test code = 28 1835) pH, Venous-POC (test 7.484 7.320-7.420 H : TESTE D AT [facility] code = 1842) [address] [facility] [place], [address] PCO2, Venous-POC (test 39.4 See_Comment L If [...] mated message] code = 1844) The system Zinc software h generated this result transmit levi reference range : 25.0 - 40.0 mm Hg. The reference r alba was not used to interpret this result as normal/abnormal . SO2, Venous-POC (test 87.0 % 40.0-70.0 H code = 1845) HCO3, Venous-POC (test 29.3 meq/L 21.0-29.0 H code = 1846) BE, Venous-POC (test 6.0 meq/L -2.0-3.0 H : code = 1847) Brewery Worker/Techni kelle ID = [id number] for MARFIL, JOSE ARMANDO Lab Interpretation Abnormal (test code = 14041-7) [facility]-Blood gases, [id number] 22:42:59 Test Item Value Reference Range Interpretation Comments Temp. Celsius-POC (test 101.3 code = 1834) FIO2-POC (test code = 1834) pH, Venous-POC (test 7.484 7.320-7.420 H : TESTE D AT [facility] code = 1842) [address] [facility] [place], [address] PCO2, Venous-POC (test 39.4 See_Comment L If [...] mated message] code = 1844) The system Zinc software h generated this result transmit levi reference range : 25.0 - 40.0 mm Hg. The reference r alba was not used to interpret this result as normal/abnormal . SO2, Venous-POC (test 87.0 % 40.0-70.0 H code = 1845) HCO3, Venous-POC (test 29.3 meq/L 21.0-29.0 H code = 1846) BE, Venous-POC (test 6.0 meq/L -2.0-3.0 H : code = 1847) Brewery Worker/Techni kelle ID = [id number] for JOSE ARMANDO CELIS Lab Interpretation Abnormal (test code = 11759-6) [facility]-Blood gases, [id number] 22:42:59 Test Item Value Reference Range Interpretation Comments Temp. Celsius-POC (test 101.3 code = 1834) FIO2-POC (test code = 1834) pH, Venous-POC (test 7.484 7.320-7.420 H : TESTE D AT [facility] code = 1842) [address] [facility] [place], [address] PCO2, Venous-POC (test 39.4 See_Comment L If [...] mated message] code = 1844) The system Pixel Qi generated this result transmit levi reference range : 25.0 - 40.0 mm Hg. The reference r alba was not used to interpret this result as normal/abnormal . SO2, Venous-POC (test 87.0 % 40.0-70.0 H code = 1845) HCO3, Venous-POC (test 29.3 meq/L 21.0-29.0 H code = 1846) BE, Venous-POC (test 6.0 meq/L -2.0-3.0 H : code = 1847) Brewery Worker/Techni kelle ID = [id number] for MARFILWILFRIDOJOSE ARMANDO Lab Interpretation Abnormal (test code = 49153-2) [facility] [id number] 22:42:59 Test Item Value Reference Range Interpretation Comments TEMP, CELSIUS-POC 101.3 (BEAKER) (test code = 1834) FIO2-POC (BEAKER) 28 (test code = 1835) PH, VENOUS-POC 7.484 7.320-7.420 H : TESTED AT [facility] [address] (BEAKER) (test code [facility], = 1842) [address] PCO2, VENOUS-POC 39.4 mm Hg 41.0-51.0 L [...] BASE EXCESS, 6.0 meq/L -2.0-3.0 H : Brewery Worker/Tech nician ID VENOUS-POC (BEAKER) = [id number] for MARFIL, (test code = 1847) JOSE ARMANDO LACTIC ACID, [id number] 22:23:56 Test Item Value Reference Range Interpretation Comments LACTATE BLOOD VENOUS 0.92 mmol/L 0.50-2.20 Specime n moderately (2) (BEAKER) (test hemolyzed code = 2872) Brewery Worker ID - BSPOCT-GLUCOSE [id number] 21:35:23 Test Item Value Reference Range Interpretation Comments POC-GLUCOSE METER 125 mg/dL 70-110 H : TESTED A T [facility] [address] (BEAKER) (test code = [facility], [facility]8) [address]: Brewery Worker/Techni kelle ID = [id number] for UG GHADA HAMLIN POCT-GLUCOSE [id number] 17:05:43 Test Item Value Reference Range Interpretation Comments POC-GLUCOSE METER 224 mg/dL 70-110 H : TESTED A T [facility] [address] (BEAKER) (test code = [facility], [facility]8) [address]: Brewery Worker/Techni kelle ID = [id number] for Re yes, Maranda POCT-GLUCOSE [id number] 16:33:44 Test Item Value Reference Range Interpretation Comments POC-GLUCOSE METER 108 mg/dL 70-110 : TESTED A T [facility] [address] (BEAKER) (test code = [facility], [facility]8) [address]: Brewery Worker/Techni kelle ID = [id number] for Ag Herminia ball POCT-GLUCOSE [id number] 07:38:21 Test Item Value Reference Range Interpretation Comments POC-GLUCOSE METER 185 mg/dL 70-110 H : TESTED A T [facility] [address] (BEAKER) (test code = [facility], [facility]8) [address]: Brewery Worker/Techni kelle ID = [id number] for Re yes, Maranda BASIC METABOLIC [id number] 07:20:13 Test Item Value Reference Range Interpretation [...] S NOT APPLICABLE FOR DIALYSIS PATIEN TS. Brewery Worker ID - HIEN [id number] 06:54:10 Test Item Value Reference Range Interpretation Comments PHOSPHORUS (BEAKER) (test code = 4.6 mg/dL 2.3-4.7 604) Brewery Worker ID - HIEN [id number] 06:54:09 Test Item Value Reference Range Interpretation Comments MAGNESIUM (BEAKER) (test code = 2.2 mg/dL 1.6-2.6 627) Brewery Worker ID - HIEN [facility] W/PLT COUNT & AUTO [id number] 04:53:46 Test Item Value Reference Range Interpretation [...] PERCENT (BEAKER) (test code = 2801) POCT-GLUCOSE [id number] 21:34:14 Test Item Value Reference Range Interpretation Comments POC-GLUCOSE METER 260 mg/dL 70-110 H : TESTED A T [facility] [address] (BEAKER) (test code = [facility], 1538) [address]: Brewery Worker/Techni kelle ID = [id number] for GHADA BECK POCT-GLUCOSE [id number] 16:27:30 Test Item Value Reference Range Interpretation Comments POC-GLUCOSE METER 170 mg/dL 70-110 H : TESTED A T [facility] [address] (BEAKER) (test code = [facility], 1538) [address]: Brewery Worker/Techni kelle ID = [id number] for Soledad Rivera 2D Echo W/Doppler(CW/PW/Color)2021-06-09 16:08:58Ejection FractionSLEH ECHO HEART[facility] W/Doppler(CW/PW/Color)2021-06-09 16:08:58Ejection FractionSLEH ECHO HEARTLAB [facility] W/Doppler(CW/PW/Color) 2021-06-09 16:08:58Ejection FractionSLEH ECHO HEARTLAB GUILLEPRIYANKA [facility] Echo W/Doppler(CW/PW/Color)2021-06-09 16:08:58Ejection FractionSLEH ECHO HEARTLAB GUILLEPRIYANKA [facility]2D Echo W/Doppler(CW/PW/Color)2021-06-09 16:08:58Ejection FractionSLEH ECHO HEARTLAB GUILLEPRIYANKA [facility]2D Echo W/Doppler(CW/PW/Color) 2021-06-09 16:08:58[facility]/PW/Color[facility]2021-06-09 16:08:58Ejection FractionSLEH ECHO HEARTLAB GUILLEPRIYANKA [facility]2D Echo W/Doppler(CW/PW/Color)2021-06-09 16:08:58[facility]jection [facility](CW/PW/Color) 2021-06-09 16:08:58Ejection FractionSLEH ECHO [facility](CW/PW/Color)2021-06-09 16:08:58Ejection FractionSLEH ECHO HEARTLAB GUILLEPRIYANKA [facility]2D Echo W/Doppler(CW/PW/Color)2021-06-09 16:08:58Ejection FractionSLEH ECHO [facility]ARTLAB [facility]Do[facility](CW/PW/Color) 2021-06-09 16:08:58Ejection [facility]H [facility](CW/PW/Color)2021-06-09 16:08:58Ejection FractionSLEH ECHO HEARTLAB [facility]2D Echo W/Doppler(CW/PW/Color)2021-06-09 16:08:58Ejection FractionSLEH ECHO HEARTLAB MKALIDA [facility]2D Echo W/Doppler(CW/PW/Color) 2021-06-09 16:08:58Ejection FractionSLEH ECHO HEARTLAB MKALIDA [facility]2D Echo W/Doppler(CW/PW/Color)2021-06-09 16:08:58Ejection FractionSLEH ECHO HEARTLAB SHANDRA [facility]2D Echo W/Doppler(CW/PW/Color)2021-06-09 16:08:58Ejection FractionSLEH ECHO HEARTLAB MKALIDA [facility] [id number] 16:06:54Ejection FractionSLEH ECHO HEARTLAB MKALIDA [facility] [id number] 16:06:54Ejection FractionSLEH ECHO HEARTLAB MKALIDA [facility] [id number] 16:06:54Ejection FractionSLEH ECHO HEARTLAB SHANDRA [facility] [id number] 16:06:54Ejection FractionSLEH ECHO HEARTLAB SHANDRA [facility] [id number] 16:06:54Ejection FractionSLEH ECHO HEARTLAB MKALIDA [facility] [id number] 16:06:54Ejection FractionSLEH ECHO HEARTLAB SHANDRA [facility] [id number] 16:06:54Ejection FractionSLEH ECHO HEARTLAB MKALIDA [facility] [id number] 16:06:54Ejection FractionSLEH ECHO HEARTLAB SHANDRA [facility] [id number] 16:06:54Ejection FractionSLEH ECHO HEARTLAB MKALIDA [facility] [id number] 16:06:54Ejection FractionSLEH ECHO HEARTLAB MKALIDA [facility] [id number] 16:06:54Ejection FractionSLEH ECHO HEARTLAB MKCKESSON [facility] [id number] 16:06:54Ejection FractionSLEH ECHO HEARTLAB MKCKESSON [facility] [id number] 16:06:54Ejection FractionSLEH ECHO HEARTLAB MKCKESSON [facility] [id number] 16:06:54Ejection FractionSLEH ECHO HEARTLAB MKCKESSON [facility] [id number] 16:06:54Ejection FractionSLEH ECHO HEARTLAB MKCKESSON [facility] [id number] 16:06:54Ejection FractionSLEH ECHO HEARTLAB MKCKESSON [facility] [id number] 16:06:54Ejection FractionSLEH ECHO HEARTLAB MKCKESSON [facility] [id number] 06:23:12 Test Item Value Reference Range Interpretation Comments POC-GLUCOSE METER 250 mg/dL 70-110 H : TESTED A T [facility] 6720 (BEAKER) (test code = [place], 1538) [address]: Brewery Worker/Techni kelle ID = [id number] for Tavia Bruce BASIC METABOLIC [id number] 04:37:07 Test Item Value Reference Range Interpretation [...] S NOT APPLICABLE FOR DIALYSIS PATIEN TS. Brewery Worker ID Bassam [place] [id number] 04:30:49 Test Item Value Reference Range Interpretation Comments PHOSPHORUS (BEAKER) (test code = 3.8 mg/dL 2.3-4.7 604) Brewery Worker ID - RAKAN [id number] 04:30:48 Test Item Value Reference Range Interpretation Comments MAGNESIUM (BEAKER) (test code = 2.0 mg/dL 1.6-2.6 627) Brewery Worker ID - RAKAN WCBC W/PLT COUNT & AUTO [id number] 03:53:11 Test Item Value Reference Range Interpretation [...] (BEAKER) (test code = 2801) Hepatitis panel, [id number] 23:49:54 Test Item Value Reference Range Interpretation Comments Hep A IgM (test code = Nonreactive Nonreactive 19637-8) Hep B C IgM (test code = Nonreactive Nonreactive 15949-1) Hepatitis C Ab (test code = Nonreactive Nonreactive 42803-6) Hepatitis B surface antigen Nonreactive Nonreactive (test code = 5195-3) BRANDI (test code = BRANDI) Brewery Worker ID - DB Lab Interpretation (test Normal code = 68834-9) [facility] [id number] 23:49:54 Test Item Value Reference Range Interpretation Comments Hep A IgM (test code = Nonreactive Nonreactive 03419-2) Hep B C IgM (test code = Nonreactive Nonreactive 93894-2) Hepatitis C Ab (test code = Nonreactive Nonreactive 24264-4) Hepatitis B surface antigen Nonreactive Nonreactive (test code = 5195-3) BRANDI (test code = BRANDI) Brewery Worker ID - DB Lab Interpretation (test Normal code = 72421-7) [facility], [id number] 23:49:54 Test Item Value Reference Range Interpretation Comments Hep A IgM (test code = Nonreactive Nonreactive 47098-7) Hep B C IgM (test code = Nonreactive Nonreactive 20096-0) Hepatitis C Ab (test code = Nonreactive Nonreactive 26042-9) Hepatitis B surface antigen Nonreactive Nonreactive (test code = 5195-3) BRANDI (test code = BRANDI) Brewery Worker ID - DB Lab Interpretation (test Normal code = 72338-6) [facility] panel, [id number] 23:49:54 Test Item Value Reference Range Interpretation Comments Hep A IgM (test code = Nonreactive Nonreactive 24671-0) Hep B C IgM (test code = Nonreactive Nonreactive 76413-6) Hepatitis C Ab (test code = Nonreactive Nonreactive 00982-6) Hepatitis B surface antigen Nonreactive Nonreactive (test code = 5195-3) BRANDI (test code = BRANDI) Brewery Worker ID - DB Lab Interpretation (test Normal code = 63162-0) [facility] panel, [id number] 23:49:54 Test Item Value Reference Range Interpretation Comments Hep A IgM (test code = Nonreactive Nonreactive 82316-4) Hep B C IgM (test code = Nonreactive Nonreactive 46873-2) Hepatitis C Ab (test code = Nonreactive Nonreactive 09572-0) Hepatitis B surface antigen Nonreactive Nonreactive (test code = 5195-3) BRANDI (test code = BRANDI) Brewery Worker ID - DB Lab Interpretation (test Normal code = 93123-8) [facility] panel, [id number] 23:49:54 Test Item Value Reference Range Interpretation Comments Hep A IgM (test code = Nonreactive Nonreactive 29148-5) Hep B C IgM (test code = Nonreactive Nonreactive 08332-9) Hepatitis C Ab (test code = Nonreactive Nonreactive 66735-4) Hepatitis B surface antigen Nonreactive Nonreactive (test code = 5195-3) BRANDI (test code = BRANDI) Brewery Worker ID - DB Lab Interpretation (test Normal code = 35635-8) [facility] panel, [id number] 23:49:54 Test Item Value Reference Range Interpretation Comments Hep A IgM (test code = Nonreactive Nonreactive 94529-9) Hep B C IgM (test code = Nonreactive Nonreactive 46973-5) Hepatitis C Ab (test code = Nonreactive Nonreactive 12552-3) Hepatitis B surface antigen Nonreactive Nonreactive (test code = 5195-3) BRANDI (test code = BRANDI) Brewery Worker ID - DB Lab Interpretation (test Normal code = 70595-9) [facility] panel, [id number] 23:49:54 Test Item Value Reference Range Interpretation Comments Hep A IgM (test code = Nonreactive Nonreactive 59838-7) Hep B C IgM (test code = Nonreactive Nonreactive 27066-5) Hepatitis C Ab (test code = Nonreactive Nonreactive 15970-6) Hepatitis B surface antigen Nonreactive Nonreactive (test code = 5195-3) BRANDI (test code = BRANDI) Brewery Worker ID - DB Lab Interpretation (test Normal code = 84983-1) [facility] panel, [id number] 23:49:54 Test Item Value Reference Range Interpretation Comments Hep A IgM (test code = Nonreactive Nonreactive 40971-4) Hep B C IgM (test code = Nonreactive Nonreactive 80685-2) Hepatitis C Ab (test code = Nonreactive Nonreactive 34535-0) Hepatitis B surface antigen Nonreactive Nonreactive (test code = 5195-3) BRANDI (test code = BRANDI) Brewery Worker ID - DB Lab Interpretation (test Normal code = 95679-2) [facility] panel, [id number] 23:49:54 Test Item Value Reference Range Interpretation Comments Hep A IgM (test code = Nonreactive Nonreactive 33838-4) Hep B C IgM (test code = Nonreactive Nonreactive 06477-0) Hepatitis C Ab (test code = Nonreactive Nonreactive 04988-5) Hepatitis B surface antigen Nonreactive Nonreactive (test code = 5195-3) BRANDI (test code = BRANDI) Brewery Worker ID - DB Lab Interpretation (test Normal code = 34729-4) [facility] panel, [id number] 23:49:54 Test Item Value Reference Range Interpretation Comments Hep A IgM (test code = Nonreactive Nonreactive 52260-5) Hep B C IgM (test code = Nonreactive Nonreactive 76016-1) Hepatitis C Ab (test code = Nonreactive Nonreactive 18206-9) Hepatitis B surface antigen Nonreactive Nonreactive (test code = 5195-3) BRANDI (test code = BRANDI) Brewery Worker ID - DB Lab Interpretation (test Normal code = 00613-7) [facility] panel, [id number] 23:49:54 Test Item Value Reference Range Interpretation Comments Hep A IgM (test code = Nonreactive Nonreactive 95543-3) Hep B C IgM (test code = Nonreactive Nonreactive 41004-8) Hepatitis C Ab (test code = Nonreactive Nonreactive 93518-9) Hepatitis B surface antigen Nonreactive Nonreactive (test code = 5195-3) BRANDI (test code = BRANDI) Brewery Worker ID - DB Lab Interpretation (test Normal code = 57156-6) [facility] panel, [id number] 23:49:54 Test Item Value Reference Range Interpretation Comments Hep A IgM (test code = Nonreactive Nonreactive 81333-7) Hep B C IgM (test code = Nonreactive Nonreactive 05230-3) Hepatitis C Ab (test code = Nonreactive Nonreactive 92997-2) Hepatitis B surface antigen Nonreactive Nonreactive (test code = 5195-3) BRANDI (test code = BRANDI) Brewery Worker ID - DB Lab Interpretation (test Normal code = 58100-4) [facility] panel, [id number] 23:49:54 Test Item Value Reference Range Interpretation Comments Hep A IgM (test code = Nonreactive Nonreactive 52372-4) Hep B C IgM (test code = Nonreactive Nonreactive 04932-0) Hepatitis C Ab (test code = Nonreactive Nonreactive 02497-2) Hepatitis B surface antigen Nonreactive Nonreactive (test code = 5195-3) BRANDI (test code = BRANDI) Brewery Worker ID - DB Lab Interpretation (test Normal code = 57647-0) [facility] panel, [id number] 23:49:54 Test Item Value Reference Range Interpretation Comments Hep A IgM (test code = Nonreactive Nonreactive 99879-0) Hep B C IgM (test code = Nonreactive Nonreactive 44394-5) Hepatitis C Ab (test code = Nonreactive Nonreactive 58402-9) Hepatitis B surface antigen Nonreactive Nonreactive (test code = 5195-3) BRANDI (test code = BRANDI) Brewery Worker ID - DB Lab Interpretation (test Normal code = 59944-7) [facility] panel, [id number] 23:49:54 Test Item Value Reference Range Interpretation Comments Hep A IgM (test code = Nonreactive Nonreactive 74483-0) Hep B C IgM (test code = Nonreactive Nonreactive 67707-6) Hepatitis C Ab (test code = Nonreactive Nonreactive 06207-1) Hepatitis B surface antigen Nonreactive Nonreactive (test code = 5195-3) BRANDI (test code = BRANDI) Brewery Worker ID - DB Lab Interpretation (test Normal code = 30004-8) [facility], [id number] 23:49:54 Test Item Value Reference Range Interpretation Comments Hep A IgM (test code = Nonreactive Nonreactive 94418-0) Hep B C IgM (test code = Nonreactive Nonreactive 99525-5) Hepatitis C Ab (test code = Nonreactive Nonreactive 03455-9) Hepatitis B surface antigen Nonreactive Nonreactive (test code = 5195-3) BRANDI (test code = BRANDI) Brewery Worker ID - DB Lab Interpretation (test Normal code = 26580-1) [facility] PANEL, [id number] 23:49:54 Test Item Value Reference Range Interpretation Comments HEPATITIS A IGM ANTIBODY (BEAKER) Nonreactive Nonreactive (test code = 498) HEPATITIS B CORE IGM ANTIBODY Nonreactive Nonreactive (BEAKER) (test code = 645) HEPATITIS C ANTIBODY (BEAKER) Nonreactive Nonreactive (test code = 367) HEPATITIS B SURFACE ANTIGEN (2) Nonreactive Nonreactive (BEAKER) (test code = 2585) Brewery Worker ID - DBPOCT-GLUCOSE [id number] 21:22:04 Test Item Value Reference Range Interpretation Comments POC-GLUCOSE METER 193 mg/dL 70-110 H : [facility] ([facility] (test code = YUDY [place] [facility], 1538) [address]59: Brewery Worker/Techni kelle ID = [id number] for Tavia Bruce Hepatitis B surface [id number] 13:29:36 Test Item Value Reference Range Interpretation Comments Hepatitis B surface Nonreactive Nonreactive antigen (test code = 5195-3) BRANDI (test code = BRANDI) Specimen is considered negative for HBsAg. Lab Interpretation (test Normal code = 09025-4) [facility] surface [id number] 13:29:36 Test Item Value Reference Range Interpretation Comments Hepatitis B surface Nonreactive Nonreactive antigen (test code = 5195-3) BRANDI (test code = BRANDI) Specimen is considered negative for HBsAg. Lab Interpretation (test Normal code = 92285-4) [facility] [id number] 13:29:36 Test Item Value Reference Range Interpretation Comments Hepatitis B surface Nonreactive Nonreactive antigen (test code = 5195-3) BRANDI (test code = BRANDI) Specimen is considered negative for HBsAg. Lab Interpretation (test Normal code = 42030-7) [facility] B surface [id number] 13:29:36 Test Item Value Reference Range Interpretation Comments Hepatitis B surface Nonreactive Nonreactive antigen (test code = 5195-3) BRANDI (test code = BRANDI) Specimen is considered negative for HBsAg. Lab Interpretation (test Normal code = 87182-8) [facility] B surface [id number] 13:29:36 Test Item Value Reference Range Interpretation Comments Hepatitis B surface Nonreactive Nonreactive antigen (test code = 5195-3) BRANDI (test code = BRANDI) Specimen is considered negative for HBsAg. Lab Interpretation (test Normal code = 97808-0) [facility] [id number] 13:29:36 Test Item Value Reference Range Interpretation Comments Hepatitis B surface Nonreactive Nonreactive antigen (test code = 5195-3) BRANDI (test code = BRANDI) Specimen is considered negative for HBsAg. Lab Interpretation (test Normal code = 29748-5) [facility] surface [id number] 13:29:36 Test Item Value Reference Range Interpretation Comments Hepatitis B surface Nonreactive Nonreactive antigen (test code = 5195-3) BRANDI (test code = BRANDI) Specimen is considered negative for HBsAg. Lab Interpretation (test Normal code = 42524-2) [facility] B surface [id number] 13:29:36 Test Item Value Reference Range Interpretation Comments Hepatitis B surface Nonreactive Nonreactive antigen (test code = 5195-3) BRANDI (test code = BRANDI) Specimen is considered negative for HBsAg. Lab Interpretation (test Normal code = 26805-1) [facility] B surface [id number] 13:29:36 Test Item Value Reference Range Interpretation Comments Hepatitis B surface Nonreactive Nonreactive antigen (test code = 5195-3) BRANDI (test code = BRANDI) Specimen is considered negative for HBsAg. Lab Interpretation (test Normal code = 61133-7) [facility] B surface [id number] 13:29:36 Test Item Value Reference Range Interpretation Comments Hepatitis B surface Nonreactive Nonreactive antigen (test code = 5195-3) BRANDI (test code = BRANDI) Specimen is considered negative for HBsAg. Lab Interpretation (test Normal code = 96458-9) [facility] B surface [id number] 13:29:36 Test Item Value Reference Range Interpretation Comments Hepatitis B surface Nonreactive Nonreactive antigen (test code = 5195-3) BRANDI (test code = BRANDI) Specimen is considered negative for HBsAg. Lab Interpretation (test Normal code = 13943-6) [facility] B surface frybkui1933-17-05 13:29:36 Test Item Value Reference Range Interpretation Comments Hepatitis B surface Nonreactive Nonreactive antigen (test code = 5195-3) BRANDI (test code = BRANDI) Specimen is considered negative for HBsAg. Lab Interpretation (test Normal code = 99707-1) [facility] B surface [id number] 13:29:36 Test Item Value Reference Range Interpretation Comments Hepatitis B surface Nonreactive Nonreactive antigen (test code = 5195-3) BRANDI (test code = BRANDI) Specimen is considered negative for HBsAg. Lab Interpretation (test Normal code = 55106-9) [facility] B surface [id number] 13:29:36 Test Item Value Reference Range Interpretation Comments Hepatitis B surface Nonreactive Nonreactive antigen (test code = 5195-3) BRANDI (test code = BRANDI) Specimen is considered negative for HBsAg. Lab Interpretation (test Normal code = 97049-1) [facility] B surface [id number] 13:29:36 Test Item Value Reference Range Interpretation Comments Hepatitis B surface Nonreactive Nonreactive antigen (test code = 5195-3) BRANDI (test code = BRANDI) Specimen is considered negative for HBsAg. Lab Interpretation (test Normal code = 92044-4) [facility] kyaqard8385-07-85 13:29:36 Test Item Value Reference Range Interpretation Comments Hepatitis B surface Nonreactive Nonreactive antigen (test code = 5195-3) BRANDI (test code = BRANDI) Specimen is considered negative for HBsAg. Lab Interpretation (test Normal code = 30741-8) [facility] surface [id number] 13:29:36 Test Item Value Reference Range Interpretation Comments Hepatitis B surface Nonreactive Nonreactive antigen (test code = 5195-3) BRANDI (test code = BRANDI) Specimen is considered negative for HBsAg. Lab Interpretation (test Normal code = 00314-4) [facility] B SURFACE [id number] 13:29:36 Test Item Value Reference Range Interpretation Comments HEPATITIS B SURFACE ANTIGEN (2) Nonreactive Nonreactive (BEAKER) (test code = 2585) Specimen is considered negative for HBsAg.U/S, ABDOMINAL, [id number] 13:10:00Abdomen limited area? Add comment if clarification is needed.- >LiverReason for exam:->hepatic nodularity reported [facility] : 1955 Sex: FFINAL REPORT TECHNIQUE: Grayscale ultrasound of the right abdomen. INDICATION: hepatic nodularity reported. COMPARISON: None. FINDINGS: MIDLINE VASCULATURE: The visualized inferior vena cava is unremarkable. The maximum visualized aortic diameter is 1.7 cm. LIVER: The right hepatic lobe is mildly enlarged 17.3 cm in length. Heterogeneous echotexture with questionable nodularity. Nofocal lesions. The main portal vein is patent [...] is likely due to the liver disease giventhe lack of gallbladder distention. 3.There is heterogeneous liver echotexture with questionable liver nodularity. Consider further evaluation for underlying liver disease to exclude cirrhosis. Signed:Florian Webb [facility] Verified Date/Time: 06/08/2021 13:10:45 [facility] ([facility])2021-06-08 12:35:29 Test Item Value Reference Range Interpretation Comments SARS-COV2/RT-PCR (test Negative Not Detected, Negative, code = 8300656) See external report for linked test SARS-COV-[address] [facility] (test code = 4780211) Negative result for this test determines that [...] 564(g) of the Act.Fact Sheet for Healthcare Pro viders:https://www.[employer]Ang[employer].fr.[employer]/sites/default/files/product/documents/Fact_Sheet_H G_Ysgxcwqpg_Pwpj_JHTG-OsE-9.pdfFact Sheet for Healthcare Patients:https://www.[employer]Ang[employer].fr.com/sites/default/files/product/docum ents/Fopb_Hynwo_Qqtvoffl_Jdid_XPUL-UsD-7.pdfPerforming Laboratory:[place] [address] [place], [place] [address]Pxuvbgy D, 25-Hydroxy 2021-06-08 11:10:06 Test Item Value Reference Range Interpretation Comments Vitamin D 25-Hydroxy 16.7 ng/mL 6.6-49.9 (test code = 2764) BRANDI (test code = BRANDI) Effective 01/12/2017: Reference Range ChangeNew: 6.6-49.9 ng/mL Previous: 13.0-47.8 ng/mL Recommended Vitamin D Target Range: 30.0-40.0 ng/mLOperator ID - DB Lab Interpretation (test Normal code = 25108-6) [facility], 05-[id number] 11:10:06 Test Item Value Reference Range Interpretation Comments Vitamin D 25-Hydroxy 16.7 ng/mL 6.6-49.9 (test code = 2764) BRANDI (test code = BRANDI) Effective 01/12/2017: Reference Range ChangeNew: 6.6-49.9 ng/mL Previous: 13.0-47.8 ng/mL Recommended Vitamin D Target Range: 30.0-40.0 ng/mLOperator ID - DB Lab Interpretation (test Normal code = 33924-9) [facility], 90-[id number] 11:10:06 Test Item Value Reference Range Interpretation Comments Vitamin D 25-Hydroxy 16.7 ng/mL 6.6-49.9 (test code = 2764) BRANDI (test code = BRANDI) Effective 01/12/2017: Reference Range ChangeNew: 6.6-49.9 ng/mL Previous: 13.0-47.8 ng/mL Recommended Vitamin D Target Range: 30.0-40.0 ng/mLOperator ID - DB Lab Interpretation (test Normal code = 15625-0) [facility], 08-Kgxhdfq0592-57-07 11:10:06 Test Item Value Reference Range Interpretation Comments Vitamin D 25-Hydroxy 16.7 ng/mL 6.6-49.9 (test code = 2764) BRANDI (test code = BRANDI) Effective 01/12/2017: Reference Range ChangeNew: 6.6-49.9 ng/mL Previous: 13.0-47.8 ng/mL Recommended Vitamin D Target Range: 30.0-40.0 ng/mLOperator ID - DB Lab Interpretation (test Normal code = 29093-9) [facility], 72-Nwvybmn0060-34-07 11:10:06 Test Item Value Reference Range Interpretation Comments Vitamin D 25-Hydroxy 16.7 ng/mL 6.6-49.9 (test code = 2764) BRANDI (test code = BRANDI) Effective 01/12/2017: Reference Range ChangeNew: 6.6-49.9 ng/mL Previous: 13.0-47.8 ng/mL Recommended Vitamin D Target Range: 30.0-40.0 ng/mLOperator ID - DB Lab Interpretation (test Normal code = 65328-3) [facility], 31-Jlhfjni3406-40-07 11:10:06 Test Item Value Reference Range Interpretation Comments Vitamin D 25-Hydroxy 16.7 ng/mL 6.6-49.9 (test code = 2764) BRANDI (test code = BRANDI) Effective 01/12/2017: Reference Range ChangeNew: 6.6-49.9 ng/mL Previous: 13.0-47.8 ng/mL Recommended Vitamin D Target Range: 30.0-40.0 ng/mLOperator ID - DB Lab Interpretation (test Normal code = 79029-7) [facility], 44-Rhlfygs6746-27-07 11:10:06 Test Item Value Reference Range Interpretation Comments Vitamin D 25-Hydroxy 16.7 ng/mL 6.6-49.9 (test code = 2764) BRANDI (test code = BRANDI) Effective 01/12/2017: Reference Range ChangeNew: 6.6-49.9 ng/mL Previous: 13.0-47.8 ng/mL Recommended Vitamin D Target Range: 30.0-40.0 ng/mLOperator ID - DB Lab Interpretation (test Normal code = 21623-0) [facility], 90-Nufhjng1776-70-07 11:10:06 Test Item Value Reference Range Interpretation Comments Vitamin D 25-Hydroxy 16.7 ng/mL 6.6-49.9 (test code = 2764) BRANDI (test code = BRANDI) Effective 01/12/2017: Reference Range ChangeNew: 6.6-49.9 ng/mL Previous: 13.0-47.8 ng/mL Recommended Vitamin D Target Range: 30.0-40.0 ng/mLOperator ID - DB Lab Interpretation (test Normal code = 92883-7) [facility], 90-Yhlizgc7987-62-07 11:10:06 Test Item Value Reference Range Interpretation Comments Vitamin D 25-Hydroxy 16.7 ng/mL 6.6-49.9 (test code = 2764) BRANDI (test code = BRANDI) Effective 01/12/2017: Reference Range ChangeNew: 6.6-49.9 ng/mL Previous: 13.0-47.8 ng/mL Recommended Vitamin D Target Range: 30.0-40.0 ng/mLOperator ID - DB Lab Interpretation (test Normal code = 08667-4) [facility], 67-Mjggmcm6340-79-07 11:10:06 Test Item Value Reference Range Interpretation Comments Vitamin D 25-Hydroxy 16.7 ng/mL 6.6-49.9 (test code = 2764) BRANDI (test code = BRANDI) Effective 01/12/2017: Reference Range ChangeNew: 6.6-49.9 ng/mL Previous: 13.0-47.8 ng/mL Recommended Vitamin D Target Range: 30.0-40.0 ng/mLOperator ID - DB Lab Interpretation (test Normal code = 77792-9) [facility], 96-Ghaoaiv7627-46-07 11:10:06 Test Item Value Reference Range Interpretation Comments Vitamin D 25-Hydroxy 16.7 ng/mL 6.6-49.9 (test code = 2764) BRANDI (test code = BRANDI) Effective 01/12/2017: Reference Range ChangeNew: 6.6-49.9 ng/mL Previous: 13.0-47.8 ng/mL Recommended Vitamin D Target Range: 30.0-40.0 ng/mLOperator ID - DB Lab Interpretation (test Normal code = 97245-4) [facility], 85-Pkpdpix2147-38-07 11:10:06 Test Item Value Reference Range Interpretation Comments Vitamin D 25-Hydroxy 16.7 ng/mL 6.6-49.9 (test code = 2764) BRANDI (test code = BRANDI) Effective 01/12/2017: Reference Range ChangeNew: 6.6-49.9 ng/mL Previous: 13.0-47.8 ng/mL Recommended Vitamin D Target Range: 30.0-40.0 ng/mLOperator ID - DB Lab Interpretation (test Normal code = 00257-3) [facility], 62-Tbmmugu9160-20-07 11:10:06 Test Item Value Reference Range Interpretation Comments Vitamin D 25-Hydroxy 16.7 ng/mL 6.6-49.9 (test code = 1989-3) BRANDI (test code = BRANDI) Effective 01/12/2017: Reference Range ChangeNew: 6.6-49.9 ng/mL Previous: 13.0-47.8 ng/mL Recommended Vitamin D Target Range: 30.0-40.0 ng/mLOperator ID - DB Lab Interpretation (test Normal code = 51068-3) [facility], 17-Osywbev4054-97-07 11:10:06 Test Item Value Reference Range Interpretation Comments Vitamin D 25-Hydroxy 16.7 ng/mL 6.6-49.9 (test code = 1989-) BRANDI (test code = BRANDI) Effective 01/12/2017: Reference Range ChangeNew: 6.6-49.9 ng/mL Previous: 13.0-47.8 ng/mL Recommended Vitamin D Target Range: 30.0-40.0 ng/mLOperator ID - DB Lab Interpretation (test Normal code = 26881-5) [facility], 81-Ujicgiq8487-42-07 11:10:06 Test Item Value Reference Range Interpretation Comments Vitamin D 25-Hydroxy 16.7 ng/mL 6.6-49.9 (test code = 1988-) BRANDI (test code = BRANDI) Effective 01/12/2017: Reference Range ChangeNew: 6.6-49.9 ng/mL Previous: 13.0-47.8 ng/mL Recommended Vitamin D Target Range: 30.0-40.0 ng/mLOperator ID - DB Lab Interpretation (test Normal code = 18442-5) [facility], 07-Sfmlhmp0413-76-07 11:10:06 Test Item Value Reference Range Interpretation Comments Vitamin D 25-Hydroxy 16.7 ng/mL 6.6-49.9 (test code = 2764) BRANDI (test code = BRANDI) Effective 01/12/2017: Reference Range ChangeNew: 6.6-49.9 ng/mL Previous: 13.0-47.8 ng/mL Recommended Vitamin D Target Range: 30.0-40.0 ng/mLOperator ID - DB Lab Interpretation (test Normal code = 54342-1) [facility], 85-Hxjbrep7953-31-07 11:10:06 Test Item Value Reference Range Interpretation Comments Vitamin D 25-Hydroxy 16.7 ng/mL 6.6-49.9 (test code = 2764) BRANDI (test code = BRANDI) Effective 01/12/2017: Reference Range ChangeNew: 6.6-49.9 ng/mL Previous: 13.0-47.8 ng/mL Recommended Vitamin D Target Range: 30.0-40.0 ng/mLOperator ID - DB Lab Interpretation (test Normal code = 34597-4) [facility], 66-DZSHMVC2748-60-07 11:10:06 Test Item Value Reference Range Interpretation Comments VITAMIN D 25-OH (BEAKER) (test 16.7 ng/mL 6.6-49.9 code = 2764) Effective 01/12/2017: Reference Range ChangeNew: 6.6-49.9 ng/mL Previous: 13.0- 47.8 ng/mLRecommendedVitamin D Target Range: 30.0-40.0 ng/mLOperator ID - DBPTH, [id number] 11:05:08 Test Item Value Reference Range Interpretation Comments PTH (test code = 2731-8) 449.7 pg/mL 8.5-72.5 H BRANDI (test code = BRANDI) Brewery Worker ID - ADMIN Lab Interpretation (test Abnormal code = 85139-0) [facility], affyrp7877-07-09 11:05:08 Test Item Value Reference Range Interpretation Comments PTH (test code = 2731-8) 449.7 pg/mL 8.5-72.5 H BRANDI (test code = BRANDI) Brewery Worker ID - ADMIN Lab Interpretation (test Abnormal code = 97971-0) [facility], [id number] 11:05:08 Test Item Value Reference Range Interpretation Comments PTH (test code = 2731-8) 449.7 pg/mL 8.5-72.5 H BRANDI (test code = BRANDI) Brewery Worker ID - ADMIN Lab Interpretation (test Abnormal code = 77205-7) [facility], [id number] 11:05:08 Test Item Value Reference Range Interpretation Comments PTH (test code = 2731-8) 449.7 pg/mL 8.5-72.5 H BRANDI (test code = BRANDI) Brewery Worker ID - ADMIN Lab Interpretation (test Abnormal code = 64210-5) [facility], vphtic2928-10-25 11:05:08 Test Item Value Reference Range Interpretation Comments PTH (test code = 2731-8) 449.7 pg/mL 8.5-72.5 H BRANDI (test code = BRANDI) Brewery Worker ID - ADMIN Lab Interpretation (test Abnormal code = 88972-7) [facility], oxuzbg0105-07-12 11:05:08 Test Item Value Reference Range Interpretation Comments PTH (test code = 2731-8) 449.7 pg/mL 8.5-72.5 H BRANDI (test code = BRANDI) Brewery Worker ID - ADMIN Lab Interpretation (test Abnormal code = 07050-7) [facility], [id number] 11:05:08 Test Item Value Reference Range Interpretation Comments PTH (test code = 2731-8) 449.7 pg/mL 8.5-72.5 H BRANDI (test code = BRANDI) Brewery Worker ID - ADMIN Lab Interpretation (test Abnormal code = 91644-2) [facility], [id number] 11:05:08 Test Item Value Reference Range Interpretation Comments PTH (test code = 2731-8) 449.7 pg/mL 8.5-72.5 H BRANDI (test code = BRANDI) Brewery Worker ID - ADMIN Lab Interpretation (test Abnormal code = 05617-3) [facility], gqohdy0915-27-62 11:05:08 Test Item Value Reference Range Interpretation Comments PTH (test code = 2731-8) 449.7 pg/mL 8.5-72.5 H BRANDI (test code = BRANDI) Brewery Worker ID - ADMIN Lab Interpretation (test Abnormal code = 99775-1) [facility], [id number] 11:05:08 Test Item Value Reference Range Interpretation Comments PTH (test code = 2731-8) 449.7 pg/mL 8.5-72.5 H BRANDI (test code = BRANDI) Brewery Worker ID - ADMIN Lab Interpretation (test Abnormal code = 32785-3) [facility], frmjrz0978-07-88 11:05:08 Test Item Value Reference Range Interpretation Comments PTH (test code = 2731-8) 449.7 pg/mL 8.5-72.5 H BRANDI (test code = BRANDI) Brewery Worker ID - ADMIN Lab Interpretation (test Abnormal code = 77843-4) [facility], [id number] 11:05:08 Test Item Value Reference Range Interpretation Comments PTH (test code = 2731-8) 449.7 pg/mL 8.5-72.5 H BRANDI (test code = BRANDI) Brewery Worker ID - ADMIN Lab Interpretation (test Abnormal code = 26367-1) [facility], [id number] 11:05:08 Test Item Value Reference Range Interpretation Comments PTH (test code = 2731-8) 449.7 pg/mL 8.5-72.5 H BRANDI (test code = BRANDI) Brewery Worker ID - ADMIN Lab Interpretation (test Abnormal code = 06416-6) [facility], [id number] 11:05:08 Test Item Value Reference Range Interpretation Comments PTH (test code = 2731-8) 449.7 pg/mL 8.5-72.5 H BRANDI (test code = BRANDI) Brewery Worker ID - ADMIN Lab Interpretation (test Abnormal code = 87260-1) [facility], [id number] 11:05:08 Test Item Value Reference Range Interpretation Comments PTH (test code = 2731-8) 449.7 pg/mL 8.5-72.5 H BRANDI (test code = BRANDI) Brewery Worker ID - ADMIN Lab Interpretation (test Abnormal code = 67993-4) [facility], eenlkj3234-30-29 11:05:08 Test Item Value Reference Range Interpretation Comments PTH (test code = 2731-8) 449.7 pg/mL 8.5-72.5 H BRANDI (test code = BRANDI) Brewery Worker ID - ADMIN Lab Interpretation (test Abnormal code = 23961-0) [facility], [id number] 11:05:08 Test Item Value Reference Range Interpretation Comments PTH (test code = 2731-8) 449.7 pg/mL 8.5-72.5 H BRANDI (test code = BRANDI) Brewery Worker ID - ADMIN Lab Interpretation (test Abnormal code = 16871-0) [facility], [id number] 11:05:08 Test Item Value Reference Range Interpretation Comments PARATHYROID HORMONE INTACT 449.7 pg/mL 8.5-72.5 H (AKASH) (test code = 577) Brewery Worker ID - [id number] 09:50:35 Test Item Value Reference Range Interpretation Comments FERRITIN (BEAKER) (test code = 926.02 ng/mL 5.00-275.00 H 361) Brewery Worker ID - ADMINIRON, TIBC, % SAT. (WITHOUT FERRITIN)2021-06-08 09:30:51 Test Item Value Reference Range Interpretation Comments IRON (BEAKER) (test code = 547) 110.0 ug/dL 40.0-160.0 TOTAL IRON BINDING CAPACITY 135 ug/dL 250-450 L (BEAKER) (test code = 769) IRON % SATURATION (2) (BEAKER) 81 % 20-55 H (test code = 2590) Brewery Worker ID - ADMINPOCT-GLUCOSE [id number] 07:11:26 Test Item Value Reference Range Interpretation Comments POC-GLUCOSE METER 199 mg/dL 70-110 H : TESTED A T [facility] (BEAKER) (test code = [place], 1538) [address]: Brewery Worker/Techni kelle ID = [id number] for Tavia Bruce Vitamin [id number] 06:28:47 Test Item Value Reference Range Interpretation Comments Vitamin B12 (test code = 1626 pg/mL 213-816 H 2132-9) BRANDI (test code = BRANDI) Brewery Worker ID - ADMIN Lab Interpretation (test Abnormal code = 84289-3) [facility] [id number] 06:28:47 Test Item Value Reference Range Interpretation Comments Vitamin B12 (test code = 1626 pg/mL 213-816 H 2132-9) BRANDI (test code = BRANDI) Brewery Worker ID - ADMIN Lab Interpretation (test Abnormal code = 19415-9) [facility] [id number] 06:28:47 Test Item Value Reference Range Interpretation Comments Vitamin B12 (test code = 1626 pg/mL 213-816 H 2132-9) BRANDI (test code = BRANDI) Brewery Worker ID - ADMIN Lab Interpretation (test Abnormal code = 48742-4) [facility] [id number] 06:28:47 Test Item Value Reference Range Interpretation Comments Vitamin B12 (test code = 1626 pg/mL 213-816 H 2132-9) BRANDI (test code = BRANDI) Brewery Worker ID - ADMIN Lab Interpretation (test Abnormal code = 75284-8) [facility] [id number] 06:28:47 Test Item Value Reference Range Interpretation Comments Vitamin B12 (test code = 1626 pg/mL 213-816 H 2132-9) BRANDI (test code = BRANDI) Brewery Worker ID - ADMIN Lab Interpretation (test Abnormal code = 96467-5) [facility] [id number] 06:28:47 Test Item Value Reference Range Interpretation Comments Vitamin B12 (test code = 1626 pg/mL 213-816 H 2132-9) BRANDI (test code = BRANDI) Brewery Worker ID - ADMIN Lab Interpretation (test Abnormal code = 74599-7) [facility] [id number] 06:28:47 Test Item Value Reference Range Interpretation Comments Vitamin B12 (test code = 1626 pg/mL 213-816 H 2132-9) BRANDI (test code = BRANDI) Brewery Worker ID - ADMIN Lab Interpretation (test Abnormal code = 08684-2) [facility] [id number] 06:28:47 Test Item Value Reference Range Interpretation Comments Vitamin B12 (test code = 1626 pg/mL 213-816 H 2132-9) BRANDI (test code = BRANDI) Brewery Worker ID - ADMIN Lab Interpretation (test Abnormal code = 21779-8) [facility] [id number] 06:28:47 Test Item Value Reference Range Interpretation Comments Vitamin B12 (test code = 1626 pg/mL 213-816 H 2132-9) BRANDI (test code = BRANDI) Brewery Worker ID - ADMIN Lab Interpretation (test Abnormal code = 24930-1) [facility] [id number] 06:28:47 Test Item Value Reference Range Interpretation Comments Vitamin B12 (test code = 1626 pg/mL 213-816 H 2132-9) BRANDI (test code = BRANDI) Brewery Worker ID - ADMIN Lab Interpretation (test Abnormal code = 20553-2) [facility] [id number] 06:28:47 Test Item Value Reference Range Interpretation Comments Vitamin B12 (test code = 1626 pg/mL 213-816 H 2132-9) BRANDI (test code = BRANDI) Brewery Worker ID - ADMIN Lab Interpretation (test Abnormal code = 17494-1) [facility] [id number] 06:28:47 Test Item Value Reference Range Interpretation Comments Vitamin B12 (test code = 1626 pg/mL 213-816 H 2132-9) BRANDI (test code = BRANDI) Brewery Worker ID - ADMIN Lab Interpretation (test Abnormal code = 75885-0) [facility] [id number] 06:28:47 Test Item Value Reference Range Interpretation Comments Vitamin B12 (test code = 1626 pg/mL 213-816 H 2132-9) BRANDI (test code = BRANDI) Brewery Worker ID - ADMIN Lab Interpretation (test Abnormal code = 23916-4) [facility] [id number] 06:28:47 Test Item Value Reference Range Interpretation Comments Vitamin B12 (test code = 1626 pg/mL 213-816 H 2132-9) BRANDI (test code = BRANDI) Brewery Worker ID - ADMIN Lab Interpretation (test Abnormal code = 21047-6) [facility] [id number] 06:28:47 Test Item Value Reference Range Interpretation Comments Vitamin B12 (test code = 1626 pg/mL 213-816 H 2132-9) BRANDI (test code = BRANDI) Brewery Worker ID - ADMIN Lab Interpretation (test Abnormal code = 92471-1) [facility] [id number] 06:28:47 Test Item Value Reference Range Interpretation Comments Vitamin B12 (test code = 1626 pg/mL 213-816 H 2132-9) BRANDI (test code = BRANDI) Brewery Worker ID - ADMIN Lab Interpretation (test Abnormal code = 59490-2) [facility] [id number] 06:28:47 Test Item Value Reference Range Interpretation Comments Vitamin B12 (test code = 1626 pg/mL 213-816 H 2132-9) BRANDI (test code = BRANDI) Brewery Worker ID - ADMIN Lab Interpretation (test Abnormal code = 71468-9) [facility] [id number] 06:28:47 Test Item Value Reference Range Interpretation Comments VITAMIN B12 (BEAKER) (test code = 1626 pg/mL 213-816 H 774) Brewery Worker ID - ADMINBASIC METABOLIC [id number] 06:22:27 Test Item Value Reference Range Interpretation [...] S NOT APPLICABLE FOR DIALYSIS PATIEN TS. Brewery Worker ID - [id number] 06:08:16 Test Item Value Reference Range Interpretation Comments MAGNESIUM (BEAKER) (test code = 2.3 mg/dL 1.6-2.6 627) Brewery Worker ID - [id number] 06:08:16 Test Item Value Reference Range Interpretation Comments PHOSPHORUS (BEAKER) (test code = 5.6 mg/dL 2.3-4.7 H 604) Brewery Worker ID - DBPROTHROMBIN TIME/[id number] 05:55:08 Test Item Value Reference Range Interpretation Comments PROTIME (BEAKER) 14.2 seconds 11.9-14.2 (test code = 759) INR (BEAKER) (test 1.12 See_Comment [Automat ed message] code = 370) The system [employer] generated this result transmitted ref erence range: <=5.90. The reference range was not used to int erpret this result as normal/abnormal . RECOMMENDED COUMADIN/WARFARIN INR THERAPY RANGESSTANDARD DOSE: 2.0 - 3.0 Includes: PROPHYLAXIS for venous thrombosis, systemic embolization; TREATMENT for venous thrombosis and/or pulmonary embolus.HIGH RISK: Target INR is 2.5-3.5 for patients with mechanical heart valves.CBC W/PLT COUNT & AUTO [id number] 05:42:08 Test Item Value Reference Range Interpretation [...] = 2801) RAD, CHEST, 1 VIEW, NON [id number] 02:35:00Reason for exam:->shortness of breathShould this be performed at the bedside?->Yes [facility] : 1955 Sex: [...] [place] MDReport Verified Date/Time: 06/08/2021 02:35:39 POCT-GLUCOSE [id number] 23:26:33 Test Item Value Reference Range Interpretation Comments POC-GLUCOSE METER 279 mg/dL 70-110 H : TESTED A T [facility] (BEAKER) (test code = YUDY [place], 1538) [address]: Brewery Worker/Techni kelle ID = [id number] for Lakisha gibbonsTavia schafer COMPREHENSIVE METABOLIC [id number] 22:28:11 Test Item Value Reference Range Interpretation [...] S NOT APPLICABLE FOR DIALYSIS PATIEN TS. Brewery Worker ID - DBVancomycin level, [id number] 22:19:31 Test Item Value Reference Range Interpretation Comments Vancomycin Rm (test 16.1 ug/mL code = 63185-4) BRANDI (test code = Reference Range: No BRANDI) NormalsOperator ID - DB [facility] Center[facility]com[facility] level, [id number] 22:19:31 Test Item Value Reference Range Interpretation Comments Vancomycin Rm (test 16.1 ug/mL code = 43690-8) BRANDI (test code = Reference Range: No BRANDI) NormalsOperator ID - DB [facility], [id number] 22:19:31 Test Item Value Reference Range Interpretation Comments Vancomycin Rm (test 16.1 ug/mL code = 78002-0) BRANDI (test code = Reference Range: No BRANDI) NormalsOperator ID - DB [facility], [id number] 22:19:31 Test Item Value Reference Range Interpretation Comments Vancomycin Rm (test 16.1 ug/mL code = 06438-0) BRANDI (test code = Reference Range: No BRANDI) NormalsOperator ID - DB [facility], [id number] 22:19:31 Test Item Value Reference Range Interpretation Comments Vancomycin Rm (test 16.1 ug/mL code = 72464-7) BRANDI (test code = Reference Range: No BRANDI) NormalsOperator ID - DB [facility], [id number] 22:19:31 Test Item Value Reference Range Interpretation Comments Vancomycin Rm (test 16.1 ug/mL code = 62229-4) BRANDI (test code = Reference Range: No BRANDI) NormalsOperator ID - DB [facility], [id number] 22:19:31 Test Item Value Reference Range Interpretation Comments Vancomycin Rm (test 16.1 ug/mL code = 54109-5) BRANDI (test code = Reference Range: No BRANDI) NormalsOperator ID - DB [facility], [id number] 22:19:31 Test Item Value Reference Range Interpretation Comments Vancomycin Rm (test 16.1 ug/mL code = 35230-9) BRANDI (test code = Reference Range: No BRANDI) NormalsOperator ID - DB [facility], [id number] 22:19:31 Test Item Value Reference Range Interpretation Comments Vancomycin Rm (test 16.1 ug/mL code = 32007-2) BRANDI (test code = Reference Range: No BRANDI) NormalsOperator ID - DB [facility], [id number] 22:19:31 Test Item Value Reference Range Interpretation Comments Vancomycin Rm (test 16.1 ug/mL code = 66005-7) BRANDI (test code = Reference Range: No BRANDI) NormalsOperator ID - [facility] [id number] 22:19:31 Test Item Value Reference Range Interpretation Comments Vancomycin Rm (test 16.1 ug/mL code = 08938-5) BRANDI (test code = Reference Range: No BRANDI) NormalsOperator ID - [facility], [id number] 22:19:31 Test Item Value Reference Range Interpretation Comments Vancomycin Rm (test 16.1 ug/mL code = 71548-0) BRANDI (test code = Reference Range: No BRANDI) NormalsOperator ID - DB [facility], [id number] 22:19:31 Test Item Value Reference Range Interpretation Comments Vancomycin Rm (test 16.1 ug/mL code = 89965-3) BRANDI (test code = Reference Range: No BRANDI) NormalsOperator ID - DB [facility], [id number] 22:19:31 Test Item Value Reference Range Interpretation Comments Vancomycin Rm (test 16.1 ug/mL code = 46934-1) BRANDI (test code = Reference Range: No BRANDI) NormalsOperator ID - DB [facility], [id number] 22:19:31 Test Item Value Reference Range Interpretation Comments Vancomycin Rm (test 16.1 ug/mL code = 34760-8) BRANDI (test code = Reference Range: No BRANDI) NormalsOperator ID - DB [facility], [id number] 22:19:31 Test Item Value Reference Range Interpretation Comments Vancomycin Rm (test 16.1 ug/mL code = 50604-9) BRANDI (test code = Reference Range: No BRANDI) NormalsOperator ID - DB [facility], [id number] 22:19:31 Test Item Value Reference Range Interpretation Comments Vancomycin Rm (test 16.1 ug/mL code = 48492-8) BRANDI (test code = Reference Range: No BRANDI) NormalsOperator ID - DB [facility], [id number] 22:19:31 Test Item Value Reference Range Interpretation Comments VANCOMYCIN RANDOM (BEAKER) (test 16.1 ug/mL code = 523) Reference Range: No NormalsOperator ID - DBCBC W/PLT COUNT & AUTO [id number] 22:05:27 Test Item Value Reference Range Interpretation [...] Interpretation Comments POCT GLU (test code = 0049763484) 129 mg/dL 70-110 H Lab Interpretation (test code = Abnormal 08572-2) [facility] GLUCOSE (AUTOMATED)2021-05-22 17:41:02 Test Item Value Reference Range Interpretation Comments POCT GLU (test code = 9395694054) 120 mg/dL 70-110 H Lab Interpretation (test code = Abnormal 79106-9) [facility] GLUCOSE (AUTOMATED)2021-05-22 13:46:20 Test Item Value Reference Range Interpretation Comments POCT GLU (test code = 2398197761) 174 mg/dL 70-110 H Lab Interpretation (test code = Abnormal 52572-4) [facility] METABOLIC PANEL (NA, K, CL, CO2, GLUCOSE, BUN, CREATININE, CA)2021-05-22 10:34:14 Test Item Value Reference Range Interpretation Comments NA (test code = 128 mmol/L 135-145 L 1817155565) K (test code = 5.2 mmol/L 3.5-5.0 H 5162258208) CL (test code = 95 mmol/L 98-108 L 9149975732) CO2 TOTAL (test code = 24 mmol/L 23-31 2673819840) AGAP (test code = 2-16 3071590864) BUN (test code = 43 mg/dL 7-23 H 9190587883) GLUCOSE (test code = 182 mg/dL 70-110 H 1440474007) CREATININE (test code = 5.93 mg/dL 0.50-1.04 H 9159091060) CALCIUM (test code = 8.0 mg/dL 8.6-10.6 L 3019597100) eGFR (test code = mL/min/1.73m2 7460629020) BRANDI (test code = BRANDI) Association of [...] tests). Lab Interpretation Abnormal (test code = 95736-1) [facility] WITH [id number] 10:25:51 Test Item Value Reference Range Interpretation Comments WBC (test code = See_Comment [Automated 6187-2) message] The sy stem which generated this result transmitted reference range : 4.30 - 11.10 10*3/?L. The reference range was not used to interpret this result as normal/abnormal . RBC (test code = See_Comment L [Automated 493-8) message] The sy stem which generated this [...] (test code = 50.7 fL 39.0-49.9 H 24584-6) RDW-CV (test code = 14.6 % 12.0-15.5 788-0) PLT (test code = See_Comment L [Automated 777-3) message] The sy stem which generated this result transmitted reference range : 166 - 358 10*3/ ?L. The reference r alba was not used to interpret this result as normal/abnormal . MPV (test code = 11.2 fL 9.5-12.9 24665-2) NRBC/100 WBC (test See_Comment [Automat ed code = 3973313491) message] The system which generated this result transmitted reference range : 0.0 - 10.0 /100 WBCs. The refer ence range was not u sed to interpret th is result as normal/abnormal . NRBC x10^3 (test code <0.01 See_Comment [Auto mated = 8851523940) message] The s ystem which generated this result transmitted reference range : 10*3/?L. The reference range was not used to interpret this result as normal/abnormal . GRAN MAT (NEUT) % 75.4 % (test code = 770-8) IMM GRAN % (test code 0.70 % = 6458574758) LYMPH % (test code = 12.5 % 736-9) MONO % (test code = 10.3 % 5905-5) EOS % (test code = 0.8 % 713-8) BASO % (test code = 0.3 % 706-2) GRAN MAT x10^3(ANC) 4.54 10*3/uL 1.88-7.09 (test code = 9911614517) IMM GRAN x10^3 (test 0.04 10*3/uL 0.00-0.06 code = 7555207183) LYMPH x10^3 (test code 0.75 10*3/uL 1.32-3.29 L = 731-0) MONO x10^3 (test code 0.62 10*3/uL 0.33-0.92 = 742-7) EOS x10^3 (test code = 0.05 10*3/uL 0.03-0.39 711-2) BASO x10^3 (test code <0.03 0.01-0.07 = 704-7) Lab Interpretation Abnormal (test code = 25346-0) [id number] 05:24:06 Test Item Value Reference Range Interpretation Comments NT-proBNP (test code 830843 pg/mL See_Comment H [Autom ated = 2836449786) message] The system which generated this result transmitted reference range : <=125. The reference range was not used to interpret this result as normal/abnormal . BRANDI (test code = BRANDI) Biotin has been reported to cause a negative bias, interpret results relative to patient's use of biotin. Lab Interpretation Abnormal (test code = 47084-9) [facility], [id number] 04:46:54 Test Item Value Reference Range Interpretation Comments GLUCOSE (test code = 1176052108) 107 mg/dL 70-110 Lab Interpretation (test code = Normal 28293-5) [facility] Total [id number] 04:46:34 Test Item Value Reference Range Interpretation Comments T PROTEIN (test code = 2628639867) 6.1 g/dL 6.3-8.2 L Lab Interpretation (test code = Abnormal 66306-1) [facility] CampusLACTATE [id number] 04:46:18 Test Item Value Reference Range Interpretation Comments LDH (test code = 2633441899) 311 U/L 300-600 Lab Interpretation (test code = Normal 94298-8) [facility] CampusTROPONIN [id number] 00:24:29 Test Item Value Reference Interpretation Comments Range TROPONIN I (test 0.084 ng/mL See_Comment H [Automated code = 6708433199) message] The system which generated this result [...] biotin. Lab Interpretation Abnormal (test code = 04976-0) [facility] CampusCyto Pleural [id number] 23:21:29 Test Item Value Reference Range Interpretation Comments Case Report (test code = Non-Gynecologic 9232567600) Cytology ?Case: [id number] ?Authorizing Provider: ?Candido Robison DO ?Collected: ? 05/20/2021 1604 ?Ordering Location: ? ? [facility] Medicine Surgery Unit ?Received: ?05/20/2021 1631 ?Pathologist: ? Mariana, ? MD Duc ?Specimen: ? ?PLEURAL, RIGHT ? Final Diagnosis (test u6iweUFlOJYfy3rhJCTrx code = 5374521012) GFuZzEwMzNcZnRuYmpcdW MxIHtccnRmMVxlcGljOTY hQFkfzbRaMZEaiFIlO2Vy unyqDNvyIH4nLV9vwLgmh FOexBVbMQOyOmPvp7afj9 30rHKxd7vwXXTGjmuswGu 4uKstZ84kq3L0DevbT22j hXOiYKP1NWLbFOQnoXZhW XNyDSB7XCCtrYNjS7nkPW JnOF8kgwclKZcuBUnfZAE jmUE3ZJRnuJThE6ShYCKz ROmyEFUwbcs5YbQwZl8xg GVyeTcyMFxwYXJkXHBsYW luXGJcZnMyMFxwYXIgQS4 gIFBMRVVSQSwgUklHSFQ7 SDNFK9UZH7YJCPYZMBSwV pcDRVS0REFbusAuGVFxLI 4uWbISNZPZVlGjHj6LCS4 BTElHTkFOVCBDRUxMUyBc KhFrUBQMPEMHI92TRX2BW VxwYXJccGFyIFBhdWwgWW 79upjvBT7AJJOqmTNctSG msOjwcf75XEV7UJBeEeA0 LzIwMjJccHJvdGVjdDAgX HBsYWluXGZzMjAgICAyOj M0ZJBZDUNwnenzRWY9f3o ydGYxXHNzdGVjZjIyMDAw QLUgi4hdAISntYDeJwPlL zNcZnRuYmpcdWMxXGRlZm Xai8yih959hEIpr0cjMIF lQqN2zCLaPYGlwIdxcno4 gUaaFvOsEDTsq4hpmaKdN mNoYXJzZXQwIEFyaWFsO3 06HEJrUSpmg2gdj7EjSQS dsNMqi1E8GXYZOAxaYaUl G688m6jrr6tiutKwkZU2J MXyXES6FWkyggIantK3KW vzaHFgNzP4EKxaykCtTJj mflQyfgQxElg0MDEvK578 CES8oUvrr0ipVHA4EOLfI KLfCwbhQh7vcGTbC925WW MvXFTZXLJogCs0CZIrhsZ nrmFhjGVLi141O386p0gc PHMlnjCluYiQmhnpx4skK 319XHBhcGVydzEyMjQwXH WwqTFbpQM4PHCjEB8acyd rQSmaEJzgOIQnurN8EYVw xIZwW8AnDELyXR5qcdvgV HX7SSvmZXGmTWC1KtFeCS Hxk8Dfhiw7EjJbsi5esb0 8PYK9d4MqbJrcEPT8ZDD1 NsUiRj1rbYRvUFMmTC3hO fOpvOLiBWAbfy27tDyaWV gaskUbsX1dRsWsJUMfzWY oXNUuNN6rlKMuKOWutN8e cmxjXHBnYnJkcmhlYWRcc MrdoxEiOu5ttWjbLCS0HA uqU8zgwY5rQpR2WEofZ5m ycK2wFIv7TNoplGM0OVKp pR0dSI9cugujx9raWLyoT TflWIMzmvD5zuN0RZCpcL NcT0ZvrO6bGMLsIZ3sgww gh9ngUYY4TMspXAVuABF7 QhFaBEXed5Vgqfa7JqMrv 7IawDUhTAkjD67ae853OF JwceYiW9tntHDdyyulaBV vkfgjXQxqmxN5UFYxKTCm YWluXGYxXGZzMjBcbGFuZ zEwMzNcaGljaFxmMVxkYm EpAJEoCMqcZ3abNqQhW3D yXGZzMjBccGFyIEkgaGF2 IKVdLGKlz54saNq6IDEge tfjv5EnKQWyeLJqsHOhcT 5ohkSls8kdMGQaEPFsCLS wB9QkGWO6nVSpDBSzlXQn zIS0WH0etrVxVP0sSTCfJ nkgcmVzaWRlbnRzLCBmZW ncz3thVZ9lXUCyuUposM6 rmAL2FXOvl2ohlFMpyOXt i2wrh4MhynHmLRzuRVSfO FonIRDaXZTzEN9uQIHzoU HickUbs8W6CkbidSRmpmb uDtggwaI3FJdlhvovQOUr KAhjZ4ccEzMqUATjaYvnV lfwi3PgZWElDIAtQvdjiZ FyfX0= Final Diagnosis Comment b5pjlUUsJLPknCH4EfThG (test code = 5747466008) ZQdu2olf3BytDJzdRRxVY umaTVsloQuft06gIA9fH8 1FF9qOPEtTpB0KPDgupW1 Vca3JJZcGZBmlJNuD062g 6qat9vqvdMnrDJ8oOdnJO DmyrchYrX2FTyoRSZhryr yDYc1DTqxOSSjcXD4ZVHw pAVaG9UgESLlML5wuyw1G UK6XExeSQKbEeB6WFAbmD IqKECncLnxRRkdz321LJP 9XkXkXFLlkbYlfAjqaM4w ZnMyMCBTbWVhcnMgYXJlI DXtqYLeI3IztLTnPTKpYU 0sYYXfq3rmykHtDAFnPU8 aX15iiRDlf0VxCCkyFIsl A9AzvEYoHV2rHHYzz30lF NSsYO9txjXoLlFYndVvWM ftL07oetEzJ6ZulECcpSI ijbZxTyhkTA0tYCUwhb7= Clinical Information Clinical Hx: ESRD (test code = 4381516381) Gross Description (test v5xxpCTvFSFrnFM1FmXvN code = 5517399472) RWfe7rbv4PaiMGdrKSlSD bxcZXdeyOxxh26tXK5fE3 8PH3xQJDuViU9KAPpzjC7 Vdf7GCSlTZUvaHVdY221m 0sbz9cshgQdvTI3xOmwUS BijyhoQkY2URcvFZIclik uZNc7FRgtMAZwaVV5LWCm uPLbV0GsAVVdPS4wxbu2O VM7FJoqVAKqHaX7YTNifY VcXSWttMqlYUizl050RDS 6KdLvQNYozsI0IOubAJPs Z5ZwC7RaGNkvMQE4XBHdF CBcXHQgMSBcXGZsIFxcbm M0i9jqLAUrvXWmNDG9GNv caWQgNTEwMDIgXFxkYiBP AjRqUgZlKDT9DRI0XXNxH Gv8HQcqB1IIKQFbQJX3BF YbRYe9GqA1SNb6LPQHSh6 pDAL5NDOrFFs6YFH5OOL3 NCBcXHQgMiBcXGZsIFxcZ iBBcmlhbCBcXGZzIDEwIF qpshL7GTIaFHqsQPYtNrA ccGFyXGZzMjJccGFyIEEx LiAgUExFVVJBLCBSSUdIV BieNCrGPtKWXI3TRRXWGr BGTFVJRFxwYXIgUmVjZWl 6WQAjHhLnk8rnaLEsFCBe LyrwYA4zQUmutEaoujQhr HVpZCBccGFyIFByZXBhcm AkKIOyn1ijRAJbADvxUKI hcGFuaWNvbGFvdSBjeXRv a8WodwojMZ6vXIWjLd2kH G1fp5SpqMYbnGZib3Hyjz HqscThIRDtiNbuechba5i vuWrbp6LgpHZcWE90GWJe qAWyRVT6UY2jdTcfGZM0 Disclaimer (test code = y9wumMZvAMGmv2uiCMKzj 6060455136) GFuZzEwMzNcZnRuYmpcdW XgPQdvyqIdCKtqd6HrC1T yMjAwMFxhbnNpXGRlZmxh dyygCRXcDKW6alHyXXPzD ZtlIOBvKAsjIa1dvHLarE imBaVtWCOkh1lpxePGUAk mRrHlW256CDTiGVknh5sy o1LbSMHwuGWry9D0DBODt skpzJe0nMasZ52uj5F3Gc pcK4jdMRIqICYeT9SkIV9 wPRJaMiq3UTJ6JYR3CTKw GDWxG7OfAB6dSZYgbDGgE Ay1l8ieaTiaRWDkFAF2m0 xpIFrajsMrGN2bky5wgGg 0f1qoxsFxPZZtVFNanUCQ BTUwP4AuoWieJx0qhLj9w ZjyKsxcMPH1Qub5XH5nwv 56dqf9fWbyKYJyfuwbCtN 2VJgvXMHbrwvfDIn4VQvm XTKkwRA7NZRehKWrP9UgJ MWoFX1qrul8QCG4KWfrNJ SiFeE9PJYnjRXkCQOvsOz oNAfuk927FMX5KtKyMO1r W0Wik5O1vA9hjDOjUOOpc IQyFfNyKOZygs3tlGTpCQ xhk7BxUYK2huC6zWDkqLA oBAHiGJ13Otlig6OdHajm v5QcK65faWR7ACnul7gtY M5kSrO4tfWnPSyqe0ksbH 8hWsQ3LQpcFY4vVQ9tWWS fzX1zeitrYFXuAuIjvzgh DYXmbNzuzyQfMr8urMjkQ DB4ZBtfG9xopB1hEcS4RW fqA1pphT7gNUx7AGaecHX 8HABtdC8lFK7fjnays9nw KEzuNDvhEGDdjnR9lrC8S CFmvSQsG8PkfO1jVYJxRE 0trafzr0qjKSS4ZEegZJH mSMO2CsEoSXZei6Lazgw3 SbHbe4OcaYGlIExgB86ug 478ZEBlzfHgX9yzkEMseb kqdEMtrcgqFOxlxuF6ACG mzgBil2ZmBJEkCZD2ZDfc IMcuyFQsYQGwrIbxe7ndR 3RscGFyXHBsYWluXGYxXG ZzMjBcbGFuZzEwMzNcaGl jaFxmMVxkYmNoXGYxXGxv D1rrMdVbL7FvPTSbXfCwp ZRsK2efXGdtmmDlITEaft BejQF2LWdcI9p1IJVokuB ndQr4wpYqUeFdPGRmCTP1 AQxniKZfEROxn0Medxene MWlZk7upPBlCASpiC9tQH QhAKMuBAbbWP2kyOe5MTV CsTEoaDVxReTANPLjVG29 glDcUBUErwfaz7J1PUqnH CAvu9LufKDuZ4ckd0AoLO Klj00bQS3rl7H8b5abKTR 6PV6tf6HyGVXpoAByoSWr CTHdv8Kmkqibs9OgEWDfy xRpb0OzPMNnozTrnOCoYE YxokYsof5yhnVcHKSnFRE cO2FvpxhahXdlwnNxNYAt wt1iwtFhBLH8EOVIYEVnQ MBpw5IhkD2crSNKDMS3eZ Iben5jxmPJjOFnWSGzwf6 9FBFwHT7nF3yhSYVtLPUd pvKloKPuo9WgEGPjcIP8n JDsMM0CMhLDd64gPWScIC SDetFzTLNqkZfuaTT5mnZ 8uX9lSTuHKXOnDzy+IFRo AXJYTFShAT3jojFsi1Tps pErdTcrIEGyeEHcf6CfmG Unh0MeiPacm9PbwPIwlEE rGF3mFAWjrjlsSTDqIEAM CxZEPLWyktK8d5GaRGLlT QQwQCJ2vYesyxq6SBRymR 5rHLOzG3cizjbcFCejVGG vg7JzqR5qxFKSzVTno7Il vDXkpJHFtSOjCJ6snyEtX RvURJyUHMY3ckWaPWUdu9 MmBYtoN5erC67owOqwmQj 9nZC9DSL8pE0qIgl+IFxw YXJccGFyIEFwcHJvcHJpY LHthWyqolXxY4YbtwYclF 4hwFEvnqVkPC5mRJ9lW4O 4aFVbUMZvsiXod4zlHIji dmUgYmVlbiByZXZpZXdlZ UNuj4OpQEdsWJB5DMhbnb BpbmNsdWRpbmcgSCZFLCB McMOxgJFmNFV6TSgdnfGp sjZyTB0orZ5xgXkwwL9ls HTrqYK9lklkNQRlUCHgbM vqPLNnGF8qeAPtOWDgtzG VkQhbxFQtwH5zC3BkTEUj TGMaye4nQWGoyU1vKHxlp 2VydmljZXMgYXJlIHBlcm Dywd0qBBAzqZEUJC3GJZp igSTix7FymqTiS9mBWUL7 NUQwNjYwMjgxKSBleGNlc PDqLVOurg60PJDhcD2aeY nhOGRepI7mwQ5zcWpwmO3 bTcFfCjIkFMlhKT2xVGXr W5gyyQRfHQHqEQHmL6ccM yGghF2bcGpzLRsmFgEyPb AvYFjqUIP4lE== Embedded Images (test code = 8173296302) [facility] 23:17:01 Test Item Value Reference Range Interpretation Comments POCT GLU (test code = 3615200622) 109 mg/dL 70-110 Lab Interpretation (test code = Normal 80781-1) [facility] CON[facility]ULT [id number] 21:50:44 UNREMARKABLE LEUKOCYTES WITH ABSOLUTE LYMPHOPENIA. MODERATE NORMOCYTIC NORMOCHROMIC ANEMIA. MILD THROMBOCYTOPENIA.[facility] VITAMIN B12, [id number] 18:38:08 Test Item Value Reference Range Interpretation Comments VIT B12 (test code = >1000 240-930 H [id number]) BRANDI (test code = BRANDI) Biotin has been reported to cause a positive bias, interpret results relative to patient's use of biotin. Lab Interpretation (test Abnormal code = 03217-2) [facility], [id number] 17:51:01 Test Item Value Reference Range Interpretation Comments VIT D 25OH (test code = 24 ng/mL 25-80 L 98293-9) BRANDI (test code = BRANDI) Deficiency: <20 ng/mLInsufficiency: 20-24 ng/mLOptimal: 25-80 ng/mL Lab Interpretation (test Abnormal code = 27665-3) [facility] 17:42:20 Test Item Value Reference Range Interpretation Comments FOLATE SER (test code = 6.1 ng/mL 3.0-20.0 Biot in has been [id number]) reported to cau se a positive bias, interpret resul ts relative to patient's use o f biotin. Lab Interpretation (test Normal code = 41572-6) [facility]2021-05-21 17:17:00 Test Item Value Reference Range Interpretation Comments POCT GLU (test code = 3837920498) 175 mg/dL 70-110 H Lab Interpretation (test code = Abnormal 29694-9) [facility] [id number] 14:52:32 Test Item Value Reference Interpretation Comments Range TROPONIN I (test 0.109 ng/mL See_Comment H [Automated code = 4291574693) message] The system which generated this result [...] biotin. Lab Interpretation Abnormal (test code = 20779-3) [facility] [id number] 14:49:31 Test Item Value Reference Range Interpretation Comments IRON (test code = 0737748071) 30 ug/dL 50-160 L TIBC (test code = 1942943444) 185 ug/dL 250-410 L % FE SAT (test code = 0366634395) 16 % 20-50 L Lab Interpretation (test code = Abnormal 54267-8) [facility]2021-05-21 14:06:00 Test Item Value Reference Range Interpretation Comments POCT GLU (test code = 8421842231) 191 mg/dL 70-110 H Lab Interpretation (test code = Abnormal 53694-1) [facility]FERRITIN [id number] 14:05:25 Test Item Value Reference Range Interpretation Comments FERRITIN (test code = 715.0 ng/mL 11.0-264.0 H 0010067483) BRANDI (test code = BRANDI) Biotin has been reported to cause a negative bias, interpret results relative to patient's use of biotin. Lab Interpretation (test Abnormal code = 89732-9) [facility]AL [id number] 13:56:37 Test Item Value Reference Range Interpretation Comments NT-proBNP (test code 162452 pg/mL See_Comment H [Autom ated = 7009031173) message] The system which generated this result transmitted reference range : <=125. The reference range was not used to interpret this result as normal/abnormal . BRANDI (test code = BRANDI) Biotin has been reported to cause a negative bias, interpret results relative to patient's use of biotin. Lab Interpretation Abnormal (test code = 91322-4) [facility] [id number] 13:43:04 Test Item Value Reference Interpretation Comments Range TROPONIN I (test 0.100 ng/mL See_Comment H [Automated code = 2733921818) message] The system which generated this result [...] biotin. Lab Interpretation Abnormal (test code = 78152-4) [facility]HEPAT[facility] FUNCTION PANEL (20105) (ALB,T.PRO,BILI T,BU/BC,ALT,AST,ALK PHOS)2021-05-21 13:30:03 Test Item Value Reference Range Interpretation Comments TOTAL BILI (test code = 0439269540) 0.7 mg/dL 0.1-1.1 BILI UNCON (test code = 4863384453) 0.0 mg/dL 0.1-1.1 L BILI CONJ (test code = 3782518594) 0.0 mg/dL 0.0-0.3 T PROTEIN (test code = 7154563840) 7.2 g/dL 6.3-8.2 ALBUMIN (test code = 6577767903) 3.5 g/dL 3.5-5.0 ALK PHOS (test code = 3510846522) 156 U/L 34-122 H ALTv (test code = 1742-6) 12 U/L 5-35 AST(SGOT) (test code = 4904483666) 28 U/L 13-40 Lab Interpretation (test code = Abnormal 00802-9) [facility] WITH [id number] 10:18:09 Test Item Value Reference Range Interpretation [...] (test code = 52.3 fL 39.0-49.9 H 11504-1) RDW-CV (test code = 14.9 % 12.0-15.5 788-0) PLT (test code = See_Comment L [Automated 777-3) message] The sy stem which generated this result transmitted reference range : 166 - 358 10*3/ ?L. The reference r alba was not used to interpret this result as normal/abnormal . MPV (test code = 11.0 fL 9.5-12.9 30006-0) NRBC/100 WBC (test See_Comment [Automat ed code = 6871911821) message] The system which generated this result transmitted reference range : 0.0 - 10.0 /100 WBCs. The refer ence range was not u sed to interpret th is result as normal/abnormal . NRBC x10^3 (test code <0.01 See_Comment [Auto mated = 8209321960) message] The s ystem which generated this result transmitted reference range : 10*3/?L. The reference range was not used to interpret this result as normal/abnormal . GRAN MAT (NEUT) % 74.4 % (test code = 770-8) IMM GRAN % (test code 0.30 % = 3384788330) LYMPH % (test code = 12.9 % 736-9) MONO % (test code = 11.2 % 5905-5) EOS % (test code = 0.7 % 713-8) BASO % (test code = 0.5 % 706-2) GRAN MAT x10^3(ANC) 4.40 10*3/uL 1.88-7.09 (test code = 8966849847) IMM GRAN x10^3 (test <0.03 0.00-0.06 code = 9472006428) LYMPH x10^3 (test code 0.76 10*3/uL 1.32-3.29 L = 731-0) MONO x10^3 (test code 0.66 10*3/uL 0.33-0.92 = 742-7) EOS x10^3 (test code = 0.04 10*3/uL 0.03-0.39 711-2) BASO x10^3 (test code 0.03 10*3/uL 0.01-0.07 = 704-7) Lab Interpretation Abnormal (test code = 89482-1) [facility] METABOLIC PANEL (NA, K, CL, CO2, GLUCOSE, BUN, CREATININE, CA)2021-05-21 10:17:29 Test Item Value Reference Range Interpretation Comments NA (test code = 132 mmol/L 135-145 L 3820661026) K (test code = 4.6 mmol/L 3.5-5.0 4628894875) CL (test code = 99 mmol/L 98-108 4488918368) CO2 TOTAL (test code = 27 mmol/L 23-31 8357957037) AGAP (test code = 2-16 5760244709) BUN (test code = 30 mg/dL 7-23 H 4290136750) GLUCOSE (test code = 129 mg/dL 70-110 H 2059164596) CREATININE (test code = 4.51 mg/dL 0.50-1.04 H 8165907680) CALCIUM (test code = 8.1 mg/dL 8.6-10.6 L 2041710034) eGFR (test code = mL/min/1.73m2 6403648645) BRANDI (test code = BRANDI) Association of [...] tests). Lab Interpretation Abnormal (test code = 52308-5) [facility] GLUCOSE (AUTOMATED)2021-05-21 02:24:31 Test Item Value Reference Range Interpretation Comments POCT GLU (test code = 4256512276) 123 mg/dL 70-110 H Lab Interpretation (test code = Abnormal 29494-6) [facility] GLUCOSE (AUTOMATED)2021-05-20 22:40:15 Test Item Value Reference Range Interpretation Comments POCT GLU (test code = 5735674761) 193 mg/dL 70-110 H Lab Interpretation (test code = Abnormal 48150-0) [facility] GLUCOSE (AUTOMATED)2021-05-20 17:24:39 Test Item Value Reference Range Interpretation Comments POCT GLU (test code = 0643093936) 129 mg/dL 70-110 H Lab Interpretation (test code = Abnormal 56749-7) [facility] [id number] 16:20:09 Test Item Value Reference Range Interpretation Comments NT-proBNP (test code 636153 pg/mL See_Comment H [Autom ated = 0621193334) message] The system which generated this result transmitted reference range : <=125. The reference range was not used to interpret this result as normal/abnormal . BRANDI (test code = BRANDI) Biotin has been reported to cause a negative bias, interpret results relative to patient's use of biotin. Lab Interpretation Abnormal (test code = 39633-6) [facility] GLUCOSE (AUTOMATED)2021-05-20 13:50:50 Test Item Value Reference Range Interpretation Comments POCT GLU (test code = 3811818232) 142 mg/dL 70-110 H Lab Interpretation (test code = Abnormal 35962-0) [facility] CampusLAMSATE [id number] 11:29:26 Test Item Value Reference Range Interpretation Comments LDH (test code = 4058159751) 424 U/L 300-600 Slight hemolysis Lab Interpretation (test code Normal = 01377-7) [facility] METABOLIC PANEL (NA, K, CL, CO2, GLUCOSE, BUN, CREATININE, CA)2021-05-20 11:28:05 Test Item Value Reference Range Interpretation Comments NA (test code = 132 mmol/L 135-145 L 3243460949) K (test code = 4.6 mmol/L 3.5-5.0 4769173315) CL (test code = 97 mmol/L 98-108 L 2313162529) CO2 TOTAL (test code = 26 mmol/L 23-31 0260871820) AGAP (test code = 2-16 9767782720) BUN (test code = 44 mg/dL 7-23 H 2813197243) GLUCOSE (test code = 161 mg/dL 70-110 H 4321827928) CREATININE (test code = 6.29 mg/dL 0.50-1.04 H 8885432932) CALCIUM (test code = 8.0 mg/dL 8.6-10.6 L 3760892516) eGFR (test code = mL/min/1.73m2 7086107970) BRANDI (test code = BRANDI) Association of [...] tests). Lab Interpretation Abnormal (test code = 53731-5) [facility] CampusPROTHROMBIN TIME / [id number] 11:17:25 Test Item Value Reference Range Interpretation Comments PROTIME PATIENT (test See_Comment [Auto mated message] code = 5964-2) The system [employer] generated this result transmitted ref erence range: 12.0 - 1 4.7 Seconds. The re ference range was not u sed to interpret this result as normal/abnor mal. INR (test code = 6301-6) Nor mal INR <1.1; Warfarin Therap eutic range 2.0 to 3. 0 or 2.5 to 3.5, dep ending upon the indica tions. Lab Interpretation (test Normal code = 17486-5) [facility] GLUCOSE (AUTOMATED)2021-05-20 01:38:05 Test Item Value Reference Range Interpretation Comments POCT GLU (test code = 5570456793) 181 mg/dL 70-110 H Lab Interpretation (test code = Abnormal 24797-3) [facility] GLUCOSE (AUTOMATED)2021-05-19 23:12:33 Test Item Value Reference Range Interpretation Comments POCT GLU (test code = 2421391966) 129 mg/dL 70-110 H Lab Interpretation (test code = Abnormal 99235-1) [facility])2021-05-19 17:43:05 Test Item Value Reference Range Interpretation Comments POCT GLU (test code = 5920264793) 195 mg/dL 70-110 H Lab Interpretation (test code = Abnormal 24379-2) [facility]AL [id number] 16:56:37 Test Item Value Reference Range Interpretation Comments NT-proBNP (test code 479432 pg/mL See_Comment H [Autom ated = 5641992306) message] The system which generated this result transmitted reference range : <=125. The reference range was not used to interpret this result as normal/abnormal . BRANDI (test code = BRANDI) Biotin has been reported to cause a negative bias, interpret results relative to patient's use of biotin. Lab Interpretation Abnormal (test code = 72072-6) [facility] METABOLIC PANEL (NA, K, CL, CO2, GLUCOSE, BUN, CREATININE, CA)2021-05-19 15:16:19 Test Item Value Reference Range Interpretation Comments NA (test code = 132 mmol/L 135-145 L 9272985899) K (test code = 4.7 mmol/L 3.5-5.0 3946377100) CL (test code = 98 mmol/L 98-108 7958929163) CO2 TOTAL (test code = 24 mmol/L 23-31 2531445053) AGAP (test code = 2-16 5605740655) BUN (test code = 30 mg/dL 7-23 H 9259240378) GLUCOSE (test code = 101 mg/dL 70-110 7330738813) CREATININE (test code = 4.70 mg/dL 0.50-1.04 H 7348634730) CALCIUM (test code = 8.3 mg/dL 8.6-10.6 L 8304278981) eGFR (test code = mL/min/1.73m2 1679766325) BRANDI (test code = BRANDI) Association of [...] tests). Lab Interpretation Abnormal (test code = 20068-7) [facility])2021-05-19 14:16:27 Test Item Value Reference Range Interpretation Comments POCT GLU (test code = 1069761414) 112 mg/dL 70-110 H Lab Interpretation (test code = Abnormal 10110-2) [facility] WITH [id number] 13:09:08 Test Item Value Reference Range Interpretation Comments WBC (test code = See_Comment [Automated 6290-2) message] The sy stem which generated this result transmitted reference range : 4.30 - 11.10 10*3/?L. The reference range was not used to interpret this result as normal/abnormal . RBC (test code = See_Comment L [Automated 469-8) message] The sy stem which generated this [...] (test code = 51.2 fL 39.0-49.9 H 49673-6) RDW-CV (test code = 14.6 % 12.0-15.5 788-0) PLT (test code = See_Comment L [Automated 777-3) message] The sy stem which generated this result transmitted reference range : 166 - 358 10*3/ ?L. The reference r alba was not used to interpret this result as normal/abnormal . MPV (test code = 11.0 fL 9.5-12.9 93735-9) NRBC/100 WBC (test See_Comment [Automat ed code = 2711438764) message] The system which generated this result transmitted reference range : 0.0 - 10.0 /100 WBCs. The refer ence range was not u sed to interpret th is result as normal/abnormal . NRBC x10^3 (test code <0.01 See_Comment [Auto mated = 1914281748) message] The s ystem which generated this result transmitted reference range : 10*3/?L. The reference range was not used to interpret this result as normal/abnormal . GRAN MAT (NEUT) % 82.8 % (test code = 770-8) IMM GRAN % (test code 0.40 % = 6659011562) LYMPH % (test code = 7.8 % 736-9) MONO % (test code = 7.9 % 5905-5) EOS % (test code = 0.7 % 713-8) BASO % (test code = 0.4 % 706-2) GRAN MAT x10^3(ANC) 5.98 10*3/uL 1.88-7.09 (test code = 4179508589) IMM GRAN x10^3 (test 0.03 10*3/uL 0.00-0.06 code = 1561153977) LYMPH x10^3 (test code 0.56 10*3/uL 1.32-3.29 L = 731-0) MONO x10^3 (test code 0.57 10*3/uL 0.33-0.92 = 742-7) EOS x10^3 (test code = 0.05 10*3/uL 0.03-0.39 711-2) BASO x10^3 (test code 0.03 10*3/uL 0.01-0.07 = 704-7) Lab Interpretation Abnormal (test code = 16505-1) [facility] B Surface Antibody (HBsAb)2021-05-19 09:35:37 Test Item Value Reference Range Interpretation Comments HBsAB (test code = Positive 4575729478) HBsAb mIU/mL Semi-Quantitative (test code = 0558265204) BRANDI (test code = Interpretation: BRANDI) ?Hepatitis B Surface Antibody ? Negative - Patient is considered to be not immune to infection with HBV. ? ? Positive - Anti-HBs detected at greater than or equal to 12 mIU/mL. ?Patient is considered to be immune to infection with HBV. ? [facility] B Surface Antigen (HBsAg)2021-05-19 09:17:53 Test Item Value Reference Range Interpretation Comments HBsAg Semi-Quantitative (test code = Negative Negative 5195-3) [facility] GLUCOSE (AUTOMATED)2021-05-19 03:13:02 Test Item Value Reference Range Interpretation Comments POCT GLU (test code = 3084545923) 110 mg/dL 70-110 Lab Interpretation (test code = Normal 51113-1) [facility] GLUCOSE (AUTOMATED)2021-05-18 23:00:40 Test Item Value Reference Range Interpretation Comments POCT GLU (test code = 6481113842) 177 mg/dL 70-110 H Lab Interpretation (test code = Abnormal 51312-1) [facility] GLUCOSE (AUTOMATED)2021-05-18 17:50:50 Test Item Value Reference Range Interpretation Comments POCT GLU (test code = 6714016080) 179 mg/dL 70-110 H Lab Interpretation (test code = Abnormal 83595-8) [facility] GLUCOSE (AUTOMATED)2021-05-18 17:26:29 Test Item Value Reference Range Interpretation Comments POCT GLU (test code = 7656203395) 171 mg/dL 70-110 H Lab Interpretation (test code = Abnormal 26519-1) [facility] METABOLIC PANEL (NA, K, CL, CO2, GLUCOSE, BUN, CREATININE, CA)2021-05-18 15:43:01 Test Item Value Reference Range Interpretation Comments NA (test code = 128 mmol/L 135-145 L 4044890545) K (test code = 5.5 mmol/L 3.5-5.0 H 5408219310) CL (test code = 94 mmol/L 98-108 L 9161740920) CO2 TOTAL (test code = 24 mmol/L 23-31 1986093274) AGAP (test code = 2-16 9787869137) BUN (test code = 56 mg/dL 7-23 H 4925042730) GLUCOSE (test code = 130 mg/dL 70-110 H 8212731613) CREATININE (test code = 7.52 mg/dL 0.50-1.04 H 7677569492) CALCIUM (test code = 7.8 mg/dL 8.6-10.6 L 4154183046) eGFR (test code = mL/min/1.73m2 1337044197) BRANDI (test code = BRANDI) Association of [...] tests). Lab Interpretation Abnormal (test code = 53214-4) [facility] GLUCOSE (AUTOMATED)2021-05-18 13:33:12 Test Item Value Reference Range Interpretation Comments POCT GLU (test code = 4070251412) 129 mg/dL 70-110 H Lab Interpretation (test code = Abnormal 27716-9) [facility] GLUCOSE (AUTOMATED)2021-05-17 22:57:15 Test Item Value Reference Range Interpretation Comments POCT GLU (test code = 8338464717) 215 mg/dL 70-110 H Lab Interpretation (test code = Abnormal 38841-6) [facility]ansthoracic echo (TTE)2021-05-17 18:02:09 Test Item Value Reference Range Interpretation Comments LVOT diameter (test code 2.00 cm = 2532154690) MV Peak E [place] (test code 134.0 cm/s = 0422985179) MV Peak A [place] (test code 54.2 cm/s = 0525162818) E/A ratio (test code = ratio 8840518134) E wave decelartion time 0.22 s (test code = 8783080355) LA size (test code = 5.4 cm 2795889351) MV stenosis pressure 1/2 65.0 ms time (test code = 1117040754) MV dec slope (test code 604.00 cm/s2 = 7881306307) Ao root annulus (test 2.7 cm code = 7188746447) Ao root diam (test code 2.70 cm = 1385920601) Aortic root (test code = 2.7 cm 8082809026) LVIDD (test code = 5.10 cm 3034622225) IVS (test code = 1.06 cm 5316202887) Interventricular Septum 1.06 cm Diastolic Thickness by 2D (test code = 2280806) LVPWD (test code = 1.00 cm 7583545740) PW (test code = 1.00 cm 0.6-1.1 6181715871) LVIDS (test code = 3.70 cm 8709412639) FS (test code = 27 % 6770978322) EF(Teich) (test code = 52.60 % 1766860742) EF - 2D (test code = 52.60 % 59325403) MR max PG (test code = 123.90 mm[Hg] 2812528455) MR max marietta (test code = 556.50 cm/s 7630542417) Mr max [place] (test code = 556.5 m/s 4097846290) LAV(MOD-sp4) (test code 46.70 mL = 5218697905) LA Volume Index (BP) 29.2 mL/m2 (test code = 7542013023) LA volume (BP) (test 51.8 mL code = 7766057838) LAV(MOD-sp2) (test code 52.40 mL = 4926137776) Aortic valve mean 105.0 cm/s velocity (test code = 8433200231) Ao peak [place] (test code = 160.0 cm/s 4393649742) Ao VTI (test code = 30.0 cm 1475907541) Ao max PG (test code = 10.20 mm[Hg] 0455911906) AV peak gradient (test mmHg code = 1742835820) AV mean gradient (test mmHg code = 0598837304) LVOT stroke volume (test 63.60 cm3 code = 5038853524) LVOT peak [place] (test code 108.3 cm/s = 8128275234) LVOT mn grad (test code mmHg = 1904465722) AV LVOT peak gradient mmHg (test code = 7312096373) LVOT peak VTI (test code 20.2 cm = 5035596061) AV area by cont VTI 2.1 cm2 (test code = 6404368866) AV area peak [place] (test 2.1 cm2 code = 5589189813) LV V1 mean (test code = 66.80 cm/s 6127714809) AV valve area (test code 2.12 cm2 = 5643078562) TR Peak [place] (test code = 342.9 cm/s 0018712735) Triscuspid Valve mmHg Regurgitation Peak Gradient (test code = 3571096038) PV REGURGITATION PEAK mmHg GRADIENT (test code = 1247172370) PI dec slope (test code 438.00 cm/s2 = 9920597584) Pulmonic Regurgitant End 105.3 cm/s Max Velocity (test code = 2384969685) Inferior Vena Cava 2.33 cm Diameter (test code = 8914466917) MV Prop V (test code = 37.50 cm/s 4601919027) Radiology Study observation (narrative) (test code = 21716-5) ADD (test code = ADD) Addendum by Brenda Fuentes MD on 05/17/2021 3:16 PM [facility] ?Left?Ventricle: Low normal systolic function with a [...] (73.9 kg) 1.81 sq meters 165/73 71 [facility] GLUCOSE (AUTOMATED)2021-05-17 17:54:17 Test Item Value Reference Range Interpretation Comments POCT GLU (test code = 0119166037) 134 mg/dL 70-110 H Lab Interpretation (test code = Abnormal 79714-5) [facility] GLUCOSE (AUTOMATED)2021-05-17 14:18:37 Test Item Value Reference Range Interpretation Comments POCT GLU (test code = 5629423759) 119 mg/dL 70-110 H Lab Interpretation (test code = Abnormal 75043-5) [facility] [id number] 11:21:13 Test Item Value Reference Range Interpretation Comments NT-proBNP (test code 127407 pg/mL See_Comment H [Autom ated = 8582282401) message] The system which generated this result transmitted reference range : <=125. The reference range was not used to interpret this result as normal/abnormal . BRANDI (test code = BRANDI) Biotin has been reported to cause a negative bias, interpret results relative to patient's use of biotin. Lab Interpretation Abnormal (test code = 02992-3) [facility] WITHOUT [id number] 11:09:22 Test Item Value Reference Range Interpretation Comments WBC (test code = 6690-2) See_Comment [A utomated message] The system [employer] generated this result transmit levi reference range : 4.30 - 11.10 10*3/?L. The reference range was not used to interpret this result as normal/abnormal . RBC (test code = 789-8) See_Comment L [Au tomated message] The system [employer] generated this result transmit levi reference range [...] See_Comment L [Au tomated message] The system [employer] generated this result transmit levi reference range : 166 - 358 10*3/?L. The reference range was not used to interpret this result as normal/abnormal . MPV (test code = 11.1 fL 9.5-12.9 26565-4) RDW-CV (test code = 14.5 % 12.0-15.5 788-0) RDW-SD (test code = 50.8 fL 39.0-49.9 H 60998-4) NRBC x10^3 (test code = <0.01 See_Comment [Au tomated message] 5151996869) The system [employer] generated this result transmit levi reference range : 10*3/?L. The reference range was not used to interpret this result as normal/abnormal . NRBC/100 WBC (test code See_Comment [Au tomated message] = 5964556984) The system [facility] generated this result transmit levi reference range : 0.0 - 10.0 /100 WBC s. The reference r alba was not used to interpret this result as normal/abnormal . IPF % (test code = 4904767006) Lab Interpretation (test Abnormal code = 68207-1) [facility] 10:56:23 Test Item Value Reference Range Interpretation Comments MAGNESIUM (test code = 2655947693) 2.1 mg/dL 1.7-2.4 Lab Interpretation (test code = Normal 40765-4) [facility] METABOLIC PANEL (NA, K, CL, CO2, GLUCOSE, BUN, CREATININE, CA)2021-05-17 10:56:22 Test Item Value Reference Range Interpretation Comments NA (test code = 130 mmol/L 135-145 L 7334155394) K (test code = 4.6 mmol/L 3.5-5.0 9536801000) CL (test code = 96 mmol/L 98-108 L 3325375453) CO2 TOTAL (test code = 26 mmol/L 23-31 9599497742) AGAP (test code = 2-16 2838698615) BUN (test code = 42 mg/dL 7-23 H 5312820967) GLUCOSE (test code = 148 mg/dL 70-110 H 5482858609) CREATININE (test code = 5.84 mg/dL 0.50-1.04 H 8240629594) CALCIUM (test code = 7.9 mg/dL 8.6-10.6 L 0476261013) eGFR (test code = mL/min/1.73m2 0861451536) BRANDI (test code = BRANDI) Association of [...] tests). Lab Interpretation Abnormal (test code = 77491-0) [facility]20[facility] 10:56:02 Test Item Value Reference Range Interpretation Comments PHOSPHORUS (test code = 6707464247) 5.8 mg/dL 2.5-5.0 H Lab Interpretation (test code = Abnormal 84841-2) [facility] GLUCOSE (AUTOMATED)2021-05-16 22:43:07 Test Item Value Reference Range Interpretation Comments POCT GLU (test code = 5582225307) 231 mg/dL 70-110 H Lab Interpretation (test code = Abnormal 04581-7) [facility] GLUCOSE (AUTOMATED)2021-05-16 17:43:53 Test Item Value Reference Range Interpretation Comments POCT GLU (test code = 5027576819) 154 mg/dL 70-110 H Lab Interpretation (test code = Abnormal 80541-6) [facility] GLUCOSE (AUTOMATED)2021-05-16 13:42:36 Test Item Value Reference Range Interpretation Comments POCT GLU (test code = 2854488458) 121 mg/dL 70-110 H Lab Interpretation (test code = Abnormal 38059-8) [facility] WITHOUT [id number] 09:48:31 Test Item Value Reference Range Interpretation Comments WBC (test code = 6690-2) See_Comment [A utomated message] The system [employer] generated this result transmit levi reference range : 4.30 - 11.10 10*3/?L. The reference range was not used to interpret this result as normal/abnormal . RBC (test code = 789-8) See_Comment L [Au tomated message] The system [employer] generated this result transmit levi reference range [...] See_Comment L [Au tomated message] The system [employer] generated this result transmit levi reference range : 166 - 358 10*3/?L. The reference range was not used to interpret this result as normal/abnormal . MPV (test code = 10.9 fL 9.5-12.9 70172-9) RDW-CV (test code = 15.0 % 12.0-15.5 788-0) RDW-SD (test code = 52.6 fL 39.0-49.9 H 55802-2) NRBC x10^3 (test code = <0.01 See_Comment [Au tomated message] 5796282846) The system [employer] generated this result transmit levi reference range : 10*3/?L. The reference range was not used to interpret this result as normal/abnormal . NRBC/100 WBC (test code See_Comment [Au tomated message] = 9729596848) The system [facility] generated this result transmit levi reference range : 0.0 - 10.0 /100 WBC s. The reference r alba was not used to interpret this result as normal/abnormal . IPF % (test code = 0366925188) Lab Interpretation (test Abnormal code = 28783-3) [facility] (Total Cholesterol, Triglycerides, HDL)2021-05-16 09:36:18 Test Item Value Reference Range Interpretation Comments CHOL (test code = 157 mg/dL 120-200 3584794036) HDL (test code = 26 mg/dL >50 L 5758628541) HDLC RATIO (test code = See_Comment H [Au tomated message] 2760539621) The system Pixel [employer] generated this result transmit levi reference range : <=4.5. The refe rence range was not u sed to interpret th is result as normal/abnormal . TRIG (test code = 146 mg/dL 30-170 7546148441) LDL CHOL (test code = 102 mg/dL See_Comment [Auto mated message] 06930-3) The system [employer] generated this result transmit levi reference range : <=160. The refe rence range was not u sed to interpret th is result as normal/abnormal . VLDL (test code = 29 mg/dL 5-60 9658366762) Lab Interpretation (test Abnormal code = 36778-8) [facility] (A1C)2021-05-16 09:22:50 Test Item Value Reference Range Interpretation Comments HGB A1C (test code = 6.2 % 4.0-5.7 H 4548-4) BRANDI (test code = BRANDI) Reference RangesNormal: <5.7%Prediabetes: 5.7 - 6.4%Diabetes: > 6.5% Lab Interpretation (test Abnormal code = 28540-1) [facility]Troponin [id number] 09:19:18 Test Item Value Reference Interpretation Comments Range TROPONIN I (test 0.028 ng/mL See_Comment [Automated code = 3444643808) message] The system which generated this result [...] biotin. Lab Interpretation Normal (test code = 33381-7) [facility] Metabolic Panel (NA, K, CL, CO2, GLUCOSE, BUN, CREATININE, CA)2021-05-16 09:08:35 Test Item Value Reference Range Interpretation Comments NA (test code = 134 mmol/L 135-145 L 0737041214) K (test code = 4.3 mmol/L 3.5-5.0 7022024702) CL (test code = 98 mmol/L 98-108 6986062533) CO2 TOTAL (test code = 27 mmol/L 23-31 5365467093) AGAP (test code = 2-16 3073879413) BUN (test code = 28 mg/dL 7-23 H 7833810305) GLUCOSE (test code = 114 mg/dL 70-110 H 6329469603) CREATININE (test code = 4.79 mg/dL 0.50-1.04 H 3036180372) CALCIUM (test code = 8.2 mg/dL 8.6-10.6 L 2080193715) eGFR (test code = mL/min/1.73m2 2868156668) BRANDI (test code = BRANDI) Association of [...] tests). Lab Interpretation Abnormal (test code = 42122-3) [facility] CampusMagnesium Zakjb1627-24-61 09:08:35 Test Item Value Reference Range Interpretation Comments MAGNESIUM (test code = 4418509014) 2.2 mg/dL 1.7-2.4 Lab Interpretation (test code = Normal 66659-2) [facility] CampusTroponin [id number] 03:08:26 Test Item Value Reference Interpretation Comments Range TROPONIN I (test 0.019 ng/mL See_Comment [Automated code = 1496308222) message] The system which generated this result [...] biotin. Lab Interpretation Normal (test code = 81062-9) [facility] CampusPhosphorus Sdrrn9329-37-40 02:56:02 Test Item Value Reference Range Interpretation Comments PHOSPHORUS (test code = 2742646798) 4.5 mg/dL 2.5-5.0 Lab Interpretation (test code = Normal 75227-0) [facility] CampusPOCT GLUCOSE (AUTOMATED)2021-05-16 02:28:15 Test Item Value Reference Range Interpretation Comments POCT GLU (test code = 3784337098) 155 mg/dL 70-110 H Lab Interpretation (test code = Abnormal 60651-0) [facility] CampusThyroid Stimulating Hormone (TSH)2021-05-16 01:56:53 Test Item Value Reference Range Interpretation Comments TSH (test code = See_Comment [Automated message] 6918943622) The system [employer] generated this result transmitted ref erence range: 0.45 - 4 .70 mIU/L. The refe rence range was not u sed to interpret this result as normal/abnor mal. Lab Interpretation (test Normal code = 95683-7) [facility] CampusGlycosylated Hemoglobin (A1C)2021-05-16 01:17:48 Test Item Value Reference Range Interpretation Comments HGB A1C (test code = 6.3 % 4.0-5.7 H 4548-4) BRANDI (test code = BRANDI) Reference RangesNormal: <5.7%Prediabetes: 5.7 - 6.4%Diabetes: > 6.5% Lab Interpretation (test Abnormal code = 67536-3) [facility] CampusN-TERMINAL [id number]-LHO6811-18-11 20:42:55 Test Item Value Reference Range Interpretation Comments NT-proBNP (test code 895302 pg/mL See_Comment H [Autom ated = 0167133982) message] The system which generated this result transmitted reference range : <=125. The reference range was not used to interpret this result as normal/abnormal . BRANDI (test code = BRANDI) Biotin has been reported to cause a negative bias, interpret results relative to patient's use of biotin. Lab Interpretation Abnormal (test code = 03645-1) [facility] CampusTROPONIN [id number] 20:28:40 Test Item Value Reference Interpretation Comments Range TROPONIN I (test 0.012 ng/mL See_Comment [Automated code = 8890159077) message] The system which generated this result [...] biotin. Lab Interpretation Normal (test code = 99796-2) [facility] CampusD-LEEWA7456-18-97 20:27:34 Test Item Value Reference Interpretation Comments Range D-DIMER (test code = See_Comment H [Autom ated 8649338519) message] The system which generated this result [...] diagnosis. Lab Interpretation Abnormal (test code = 14907-9) [facility] CampusMAGNESIUM2022-02-11 20:17:56 Test Item Value Reference Range Interpretation Comments MAGNESIUM (test code = 3376417621) 1.9 mg/dL 1.7-2.4 Lab Interpretation (test code = Normal 97488-8) [facility] CampusCOMP. METABOLIC PANEL (87336)2021-05-15 20:17:36 Test Item Value Reference Range Interpretation Comments NA (test code = 136 mmol/L 135-145 2770840775) K (test code = 4.2 mmol/L 3.5-5.0 4692125064) CL (test code = 99 mmol/L 98-108 0563557028) CO2 TOTAL (test code = 26 mmol/L 23-31 4411754501) AGAP (test code = 2-16 9590889615) BUN (test code = 24 mg/dL 7-23 H 2312485451) GLUCOSE (test code = 112 mg/dL 70-110 H 4988786885) CREATININE (test code = 3.82 mg/dL 0.50-1.04 H 2162537348) TOTAL BILI (test code = 1.0 mg/dL 0.1-1.7 3204147138) CALCIUM (test code = 8.5 mg/dL 8.6-10.6 L 6384701272) T PROTEIN (test code = 8.6 g/dL 6.3-8.2 H 8237986413) ALBUMIN (test code = 4.2 g/dL 3.5-5.0 8403527662) ALK PHOS (test code = 176 U/L 34-122 H 2499221215) ALTv (test code = 13 U/L 5-35 1742-6) AST(SGOT) (test code = 26 U/L 13-40 0965728222) eGFR (test code = mL/min/1.73m2 4239204081) BRANDI (test code = BRANDI) Association of [...] tests). Lab Interpretation Abnormal (test code = 78401-1) [facility] CampusLIPASE2022-02-11 20:17:15 Test Item Value Reference Range Interpretation Comments LIPASE (test code = 8326447329) 125 U/L 0-220 Lab Interpretation (test code = Normal 76961-3) [facility] CampusPROTHROMBIN TIME / [id number] 20:02:29 Test Item Value Reference Range Interpretation Comments PROTIME PATIENT (test See_Comment [Auto mated message] code = 5964-2) The system beneSol ich generated this result transmitted ref erence range: 12.0 - 1 4.7 Seconds. The re ference range was not u sed to interpret this result as normal/abnor mal. INR (test code = 6301-6) Nor mal INR <1.1; Warfarin Therap eutic range 2.0 to 3. 0 or 2.5 to 3.5, dep ending upon the indica tions. Lab Interpretation (test Normal code = 51363-3) [facility] CampusCB WITH [id number] 19:52:47 Test Item Value Reference Range Interpretation Comments WBC (test code = See_Comment [Automated 6690-2) message] The sy stem which generated this result transmitted reference range : 4.30 - 11.10 10*3/?L. The reference range was not used to interpret this result as normal/abnormal . RBC (test code = See_Comment L [Automated 189-8) message] The sy stem which generated this [...] (test code = 52.6 fL 39.0-49.9 H 16147-7) RDW-CV (test code = 15.0 % 12.0-15.5 788-0) PLT (test code = See_Comment L [Automated 777-3) message] The sy stem which generated this result transmitted reference range : 166 - 358 10*3/ ?L. The reference r alba was not used to interpret this result as normal/abnormal . MPV (test code = 10.9 fL 9.5-12.9 66183-7) NRBC/100 WBC (test See_Comment [Automat ed code = 1147974525) message] The system which generated this result transmitted reference range : 0.0 - 10.0 /100 WBCs. The refer ence range was not u sed to interpret th is result as normal/abnormal . NRBC x10^3 (test code <0.01 See_Comment [Auto mated = 9187386962) message] The s ystem which generated this result transmitted reference range : 10*3/?L. The reference range was not used to interpret this result as normal/abnormal . GRAN MAT (NEUT) % 74.8 % (test code = 770-8) IMM GRAN % (test code 0.60 % = 6862818953) LYMPH % (test code = 12.4 % 736-9) MONO % (test code = 8.7 % 5905-5) EOS % (test code = 2.6 % 713-8) BASO % (test code = 0.9 % 706-2) GRAN MAT x10^3(ANC) 4.06 10*3/uL 1.88-7.09 (test code = 2041042371) IMM GRAN x10^3 (test 0.03 10*3/uL 0.00-0.06 code = 7787139340) LYMPH x10^3 (test code 0.67 10*3/uL 1.32-3.29 L = 731-0) MONO x10^3 (test code 0.47 10*3/uL 0.33-0.92 = 742-7) EOS x10^3 (test code = 0.14 10*3/uL 0.03-0.39 711-2) BASO x10^3 (test code 0.05 10*3/uL 0.01-0.07 = 704-7) Lab Interpretation Abnormal (test code = 35761-9) [facility] CampusTroponin I.cardiac [Mass/volume] in Serum or Jnjqol8574-06-53 17:30:00 Test Item Value Reference Range Interpretation Comments Troponin I.cardiac 0.35 See_Comment [Automat ed message] The [Mass/volume] in Serum syste m which generated or Plasma (test code = this result transmitted Troponin I.cardiac reference range: <=0.045. [Mass/volume] in Serum The r eference range was or Plasma) not used to int erpret this result as normal/abnormal . [facility]annAbsolute lymphocyte xoloz4134-00-75 11:37:00 Test Item Value Reference Range Interpretation Comments Absolute lymphocyte count (test code = 0.7 0.7-4.9 Absolute lymphocyte count) [facility]annBas[facility] %2019-02-18 11:37:00 Test Item Value Reference Range Interpretation Comments Basophil % (test code = 2.4 See_Comment [Au tomated message] The Basophil %) system which ge nerated this result tra nsmitted reference range : <=1.3. The reference r alba was not used to int erpret this result as normal/abnormal . [facility]annBlood anisocytosis vkjdpvqcw4030-53-02 11:37:00 Test Item Value Reference Range Interpretation Comments Blood anisocytosis detection (test code 2+ = Blood anisocytosis detection) [facility] MalloryannBlood erythrocytes count (number/volume)2019-02-18 11:37:00 Test Item Value Reference Range Interpretation Comments Blood erythrocytes count 3.34 3.86-4.86 (number/volume) (test code = Blood erythrocytes count (number/volume)) [facility]annBlood hematocrit (volume fraction)2019-02-18 11:37:00 Test Item Value Reference Range Interpretation Comments Blood hematocrit (volume fraction) 31.8 36.0-45.0 (test code = Blood hematocrit (volume fraction)) [facility]annBlood morphology interpretation roezkhwgq4677-50-38 11:37:00 Test Item Value Reference Range Interpretation Comments Blood morphology interpretation Noted narrative (test code = Blood morphology interpretation narrative) [facility] mean xsabuc5997-89-71 11:37:00 Test Item Value Reference Range Interpretation Comments Blood platelet mean volume (test code = 9.8 7.6-11.3 Blood platelet mean volume) [facility]annBlood poikilocytosis detection by light ksurkacxeb3177-03-09 11:37:00 Test Item Value Reference Range Interpretation Comments Blood poikilocytosis detection by light 1+ microscopy (test code = Blood poikilocytosis detection by light microscopy) [facility]annCalcium [Mass/volume] in Serum or Qpdqlu7789-99-50 11:37:00 Test Item Value Reference Range Interpretation [...] total [Moles/volume] in Serum or Plasma) [facility] HermannChemistry xvyhngfmo6294-08-37 11:37:00 Test Item Value Reference Range Interpretation Comments Chemistry procedure (test code = 95.3 80-100 Chemistry procedure) [facility]annChloride [Moles/volume] in Serum or Fdqeut7739-11-84 11:37:00 Test Item Value Reference Range Interpretation Comments Chloride [Moles/volume] in Serum or 98 98-107 Plasma (test code = Chloride [Moles/volume] in Serum or Plasma) [facility]annCreatinine [Mass/volume] in Serum or Qnpaez4959-69-73 11:37:00 Test Item Value Reference Range Interpretation Comments Creatinine [Mass/volume] in Serum or 7.35 0.55-1.3 Plasma (test code = Creatinine [Mass/volume] in Serum or Plasma) [facility]annGlucose [Mass/volume] in Serum or Vjcuhj0170-77-18 11:37:00 Test Item Value Reference Range Interpretation Comments Glucose [Mass/volume] in Serum or 110 74-106 Plasma (test code = Glucose [Mass/volume] in Serum or Plasma) [facility]annMagnesium [Mass/volume] in Serum or Uiorpo8230-96-70 11:37:00 Test Item Value Reference Range Interpretation Comments Magnesium [Mass/volume] in Serum or 2.4 1.8-2.4 Plasma (test code = Magnesium [Mass/volume] in Serum or Plasma) [facility]annPhosphate [Mass/volume] in Serum or Pvbase3175-40-79 11:37:00 Test Item Value Reference Range Interpretation Comments Phosphate [Mass/volume] in Serum or 4.7 2.5-4.9 Plasma (test code = Phosphate [Mass/volume] in Serum or Plasma) [facility]annPotassium [Moles/volume] in Serum or Ztaxwe4056-35-86 11:37:00 Test Item Value Reference Range Interpretation [...] [facility]annUrea nitrogen [Mass/volume] in Serum or Zgjctr7288-66-30 11:37:00 Test Item Value Reference Range Interpretation Comments Urea nitrogen [Mass/volume] in Serum or 74 7-18 Plasma (test code = Urea nitrogen [Mass/volume] in Serum or Plasma) [facility]annUrine dipstick testing at klxlv-pd-bbtu4627-11-17 11:37:00 Test Item Value Reference Range Interpretation Comments Urine dipstick testing at rllgf-rg-amfr 2.6 4.3-10.9 (test code = Urine dipstick testing at nmwsw-ps-tlcf) [facility]annAlanine aminotransferase [Enzymatic activity/volume] in Serum or Plasma by With P-5'-2019-02-18 00:35:00 Test Item Value Reference Range Interpretation Comments Alanine aminotransferase [Enzymatic 64 12-78 activity/volume] in Serum or Plasma by With P-5'- (test code = Alanine aminotransferase [Enzymatic activity/volume] in Serum or Plasma by With P-5'-) [facility]annAlbumin [Mass/volume] in Serum or Plasma by Bromocresol purple (BCP) dye binding [id number] 00:35:00 Test Item Value Reference Range Interpretation Comments Albumin [Mass/volume] in Serum or 3.6 3.4-5.0 Plasma by Bromocresol purple (BCP) dye binding meth (test code = Albumin [Mass/volume] in Serum or Plasma by Bromocresol purple (BCP) dye binding meth) [facility]annAlkaline phosphatase [Enzymatic activity/volume] in Serum or Beqptd5207-97-75 00:35:00 Test Item Value Reference Range Interpretation Comments Alkaline phosphatase [Enzymatic 236 45-117 activity/volume] in Serum or Plasma (test code = Alkaline phosphatase [Enzymatic activity/volume] in Serum or Plasma) [facility]annAspartate aminotransferase [Enzymatic activity/volume] in Serum or Plasma by With [id number] 00:35:00 Test Item Value Reference Range Interpretation Comments Aspartate aminotransferase [Enzymatic 48 15-37 activity/volume] in Serum or Plasma by With P-5 (test code = Aspartate aminotransferase [Enzymatic activity/volume] in Serum or Plasma by With P-5) [facility]annBilirubin.direct [Mass/volume] in Serum or Yjapnx1146-35-30 00:35:00 Test Item Value Reference Range Interpretation Comments Bilirubin.direct 0.2 See_Comment [Automated message] The [Mass/volume] in Serum syste m which generated or Plasma (test code = this result transmitted Bilirubin.direct reference r alba: <=0.2. [Mass/volume] in Serum The r eference range was or Plasma) not used to int erpret this result as emilee l/abnormal. [facility]annBilirubin.total [Mass/volume] in Serum or Wcykbk7843-96-52 00:35:00 Test Item Value Reference Range Interpretation Comments Bilirubin.total [Mass/volume] in Serum 0.6 0.2-1.0 or Plasma (test code = Bilirubin.total [Mass/volume] in Serum or Plasma) [facility]annINR in Blood by Coagulation [id number] 00:35:00 Test Item Value Reference Range Interpretation Comments INR in Blood by Coagulation assay 1.15 1 (test code = INR in Blood by Coagulation assay) [facility]annNatriuretic peptide.B prohormone N-Terminal [Mass/volume] in Serum or Svlujy1005-17-86 00:35:00 Test Item Value Reference Range Interpretation Comments Natriuretic peptide.B prohormone > 207550 N-Terminal [Mass/volume] in Serum or Plasma (test code = Natriuretic peptide.B prohormone N-Terminal [Mass/volume] in Serum or Plasma) [facility]annProtein [Mass/volume] in Serum or [id number] 00:35:00 Test Item Value Reference Range Interpretation Comments Protein [Mass/volume] in Serum or 8.0 6.4-8.2 Plasma (test code = Protein [Mass/volume] in Serum or Plasma) [facility]annTroponin I.cardiac [Mass/volume] in Serum or Mzlpqb4500-59-18 00:35:00 Test Item Value Reference Range Interpretation Comments Troponin I.cardiac 0.32 See_Comment [Automat ed message] The [Mass/volume] in Serum syste m which generated or Plasma (test code = this result transmitted Troponin I.cardiac reference range: <=0.045. [Mass/volume] in Serum The r eference range was or Plasma) not used to int erpret this result as normal/abnormal . [facility]annSerum or plasma sodium measurement (moles/volume)2019-01-26 04:05:00 Test Item Value Reference Range Interpretation Comments Serum or plasma sodium measurement 136 136-145 (moles/volume) (test code = Serum or plasma sodium measurement (moles/volume)) [facility]annUrea nitrogen [Mass/volume] in Serum or Gpqigu8560-00-36 04:05:00 Test Item Value Reference Range Interpretation Comments Urea nitrogen [Mass/volume] in Serum or 52 7-18 Plasma (test code = Urea nitrogen [Mass/volume] in Serum or Plasma) [facility]annUrine dipstick testing at txsqg-ot-nebo5007-10-25 04:05:00 Test Item Value Reference Range Interpretation Comments Urine dipstick testing at kuvll-bq-kkfm 3.4 4.3-10.9 (test code = Urine dipstick testing at roqjl-ha-ciek) [facility]annAbsolute lymphocyte tpkau7923-16-07 04:05:00 Test Item Value Reference Range Interpretation Comments Absolute lymphocyte count (test code = 0.6 0.7-4.9 Absolute lymphocyte count) [facility]annBasophil %2019-01-26 04:05:00 Test Item Value [...] hematocrit (volume fraction)) [facility]annBlood morphology interpretation ijiwxwduw4575-46-94 04:05:00 Test Item Value Reference Range Interpretation Comments Blood morphology interpretation Not seen narrative (test code = Blood morphology interpretation narrative) [facility]annBlood platelet mean [id number] 04:05:00 Test Item Value Reference Range Interpretation Comments Blood platelet mean volume (test code = 9.2 7.6-11.3 Blood platelet mean volume) [facility]annCalcium [Mass/volume] in Serum or Hngfnq8274-29-47 04:05:00 Test Item Value Reference Range Interpretation [...] [Moles/volume] in Serum or Plasma) [facility]annChemistry whdurivoe7480-41-51 04:05:00 Test Item Value Reference Range Interpretation Comments Chemistry procedure (test code = 98.1 80-100 Chemistry procedure) [facility]annChloride [Moles/volume] in Serum or Qpbdsi5492-51-00 04:05:00 Test Item Value Reference Range Interpretation Comments Chloride [Moles/volume] in Serum or 98 98-107 Plasma (test code = Chloride [Moles/volume] in Serum or Plasma) [facility]annCreatinine [Mass/volume] in Serum or Plblpi9180-34-60 04:05:00 Test Item Value Reference Range Interpretation Comments Creatinine [Mass/volume] in Serum or 6.36 0.55-1.3 Plasma (test code = Creatinine [Mass/volume] in Serum or Plasma) [facility]annGlucose [Mass/volume] in Serum or Xrpzpd1573-87-64 04:05:00 Test Item Value Reference Range Interpretation Comments Glucose [Mass/volume] in Serum or 251 74-106 Plasma (test code = Glucose [Mass/volume] in Serum or Plasma) [facility]annPotassium [Moles/volume] in Serum or Ajcolg7912-35-68 04:05:00 Test Item Value Reference Range Interpretation Comments Potassium [Moles/volume] in Serum or 4.7 3.5-5.1 Plasma (test code = Potassium [Moles/volume] in Serum or Plasma) [facility] CenterannBacterial culture w [id number] 01:55:00 Test Item Value Reference Range Interpretation Comments Bacterial culture w ID NORMAL UPPER (test code = Bacterial RESPIRATORY HARI culture w ID) GROWN. [facility] Uhydhaf1632-39-24 16:07:00 Test Item Value Reference Range Interpretation Comments Bedside Glucose (test code = Bedside 175 65-120 Glucose) [facility] Umdnbla0801-82-13 05:35:00 Test Item Value Reference Range Interpretation Comments Blood Morphology Blood Morphology Comment (test code = Comment Blood Morphology Comment) [facility] Scfcamh1303-43-22 05:35:00 Test Item Value Reference Range Interpretation Comments Total Bilirubin (test code = Total 0.5 0.2-1.0 Bilirubin) [facility] Wfydrxt8446-16-57 05:35:00 Test Item Value Reference Range Interpretation Comments Sodium Level (test code = Sodium Level) 137 136-145 [facility] Zubecgm0147-80-75 05:35:00 Test Item Value Reference Range Interpretation Comments Serum Total Protein (test code = Serum 7.5 6.4-8.2 Total Protein) [facility] Ycpmoka9982-02-14 05:35:00 Test Item Value Reference Range Interpretation Comments Potassium Level (test code = Potassium 4.8 3.5-5.1 Level) [facility]2019-07-10 05:35:00 Test Item Value Reference Range Interpretation Comments Glucose Level (test code = Glucose 90 74-106 Level) [facility]2019-07-10 05:35:00 Test Item Value Reference Range Interpretation Comments Globulin (test code = Globulin) 4.3 2.3-3.5 [facility]2019-07-10 05:35:00 Test Item Value Reference Range Interpretation Comments Estimat Glomerular 7 See_Comment [Automat ed message] The Filtration Rate (test system which generated code = Estimat this result t ransmitted Glomerular Filtration refere nce range: >=90. Rate) The reference r alba was not used to int erpret this result as normal/abnormal . [facility]2019-07-10 05:35:00 Test Item Value Reference Range Interpretation Comments Creatinine (test code = Creatinine) 6.02 0.55-1.3 [facility]2019-07-10 05:35:00 Test Item Value Reference Range Interpretation Comments Chloride Level (test code = Chloride 102 98-107 Level) [facility]2019-07-10 05:35:00 Test Item Value Reference Range Interpretation Comments Carbon Dioxide Level (test code = 25 21-32 Carbon Dioxide Level) [facility]2019-07-10 05:35:00 Test Item Value Reference Range Interpretation Comments Calcium Level (test code = Calcium 8.1 8.5-10.1 Level) [facility]2019-07-10 05:35:00 Test Item Value Reference Range Interpretation Comments Blood Urea Nitrogen (test code = Blood 43 7-18 Urea Nitrogen) [facility]2019-07-10 05:35:00 Test Item Value Reference Range Interpretation Comments Aspartate Amino Transf (AST/SGOT) (test 36 15-37 code = Aspartate Amino Transf (AST/SGOT)) [facility]2019-07-10 05:35:00 Test Item Value Reference Range Interpretation Comments Alkaline Phosphatase (test code = 252 45-117 Alkaline Phosphatase) [facility]2019-07-10 05:35:00 Test Item Value Reference Range Interpretation Comments Albumin/Globulin Ratio (test code = 0.7 1 1.1-1.8 Albumin/Globulin Ratio) [facility]2019-07-10 05:35:00 Test Item Value Reference Range Interpretation Comments Albumin (test code = Albumin) 3.2 3.4-5.0 [facility]2019-07-10 05:35:00 Test Item Value Reference Range Interpretation Comments Alanine Aminotransferase (ALT/SGPT) 57 12-78 (test code = Alanine Aminotransferase (ALT/SGPT)) [facility]2019-07-10 05:35:00 Test Item Value Reference Range Interpretation Comments White Blood Count (test code = White 2.9 4.3-10.9 Blood Count) [facility]2019-07-10 05:35:00 Test Item Value Reference Range Interpretation Comments Red Cell Distribution Width (test code 17.2 12.1-15.2 = Red Cell Distribution Width) [facility]2019-07-10 05:35:00 Test Item Value Reference Range Interpretation Comments Red Blood Count (test code = Red Blood 3.49 3.86-4.86 Count) [facility]2019-07-10 05:35:00 Test Item Value Reference Range Interpretation Comments Platelet Count (test code = Platelet 116 152-406 Count) [facility]2019-07-10 05:35:00 Test Item Value Reference Range Interpretation Comments Neutrophils % (test code = Neutrophils 49.4 41.7-73.7 %) [facility]2019-07-10 05:35:00 Test Item Value Reference Range Interpretation Comments Monocytes % (test code = Monocytes %) 10.4 3.3-12.3 [facility]2019-07-10 05:35:00 Test Item Value Reference Range Interpretation Comments Mean Platelet Volume (test code = Mean 8.7 7.6-11.3 Platelet Volume) [facility]2019-07-10 05:35:00 Test Item Value Reference Range Interpretation Comments Mean Corpuscular Volume (test code = 98.2 80-100 Mean Corpuscular Volume) [facility]2019-07-10 05:35:00 Test Item Value Reference Range Interpretation Comments Mean Corpuscular Hemoglobin Concent 33.0 32.0-36.0 (test code = Mean Corpuscular Hemoglobin Concent) [facility]2019-07-10 05:35:00 Test Item Value Reference Range Interpretation Comments Mean Corpuscular Hemoglobin (test 32.4 pg 27.0-35.0 code = Mean Corpuscular Hemoglobin) [facility]2019-07-10 05:35:00 Test Item Value Reference Range Interpretation Comments Lymphocytes % (test code = Lymphocytes 30.3 15.3-44.8 %) [facility]2019-07-10 05:35:00 Test Item Value Reference Range Interpretation Comments Hemoglobin (test code = Hemoglobin) 11.3 12.0-15.0 [facility]2019-07-10 05:35:00 Test Item Value Reference Range Interpretation Comments Hematocrit (test code = Hematocrit) 34.3 36.0-45.0 [facility]2019-07-10 05:35:00 Test Item Value Reference Range Interpretation Comments Eosinophils % (test code 8.8 See_Comment [A utomated message] The = Eosinophils %) system [facility] generated this result tra nsmitted reference range : <=4.4. The reference r alba was not used to int erpret this result as normal/abnormal . [facility]2019-07-10 05:35:00 Test Item Value Reference Range Interpretation Comments Basophils % (test code 1.1 See_Comment [Aut omated message] The = Basophils %) system which generated this result tra nsmitted reference range : <=1.3. The reference r alba was not used to int erpret this result as normal/abnormal . [facility]2019-07-10 05:35:00 Test Item Value Reference Range Interpretation Comments Absolute Neutrophil (test code = 1.4 1.8-8.0 Absolute Neutrophil) [facility]2019-07-10 05:35:00 Test Item Value Reference Range Interpretation Comments Absolute Monocytes (CBC) (test code = 0.3 0.1-1.3 Absolute Monocytes (CBC)) [facility]2019-07-10 05:35:00 Test Item Value Reference Range Interpretation Comments Absolute Lymphocytes (CBC) (test code = 0.9 0.7-4.9 Absolute Lymphocytes (CBC)) [facility]2019-07-10 05:35:00 Test Item Value Reference Range Interpretation Comments Absolute Eosinophils 0.3 See_Comment [Autom ated message] The (CBC) (test code = system wh ich generated Absolute Eosinophils this re sult transmitted (CBC)) reference range : <=0.5. The reference r alba was not used to int erpret this result as normal/abnormal . [facility]2019-07-10 05:35:00 Test Item Value Reference Range Interpretation Comments Absolute Basophils 0.0 See_Comment [Automat ed message] The (CBC) (test code = system wh ich generated Absolute Basophils this resu lt transmitted (CBC)) reference range : <=0.5. The reference r alba was not used to int erpret this result as normal/abnormal . [facility]2019-07-09 05:43:00 Test Item Value Reference Range Interpretation Comments Prothrombin Time (test code = 12.9 9.5-12.5 Prothrombin Time) [facility]2019-07-09 05:43:00 Test Item Value Reference Range Interpretation Comments INR International Normalized Ratio 1.10 1 (test code = INR International Normalized Ratio) [facility]2019-07-09 05:43:00 Test Item Value Reference Range Interpretation Comments Triglycerides Level (test code = 89 Triglycerides Level) [facility]2019-07-09 05:43:00 Test Item Value Reference Range Interpretation Comments Phosphorus Level (test code = 6.3 2.5-4.9 Phosphorus Level) [facility]2019-07-09 05:43:00 Test Item Value Reference Range Interpretation Comments Magnesium Level (test code = Magnesium 2.3 1.8-2.4 Level) [facility]2019-07-09 05:43:00 Test Item Value Reference Range Interpretation Comments LDL Cholesterol, Calculated (test code 47 1 = LDL Cholesterol, Calculated) [facility]2019-07-09 05:43:00 Test Item Value Reference Range Interpretation Comments HDL Cholesterol (test code = HDL 57 40-60 Cholesterol) [facility]2019-07-09 05:43:00 Test Item Value Reference Range Interpretation Comments Cholesterol/HDL Ratio (test code = 2.14 1 Cholesterol/HDL Ratio) [facility]2019-07-09 05:43:00 Test Item Value Reference Range Interpretation Comments Cholesterol Level (test code = 122 Cholesterol Level) [facility]2019-07-08 19:49:00 Test Item Value Reference Range Interpretation Comments Troponin I (test code = 0.59 See_Comment [Au tomated message] The Troponin I) system which ge nerated this result tra nsmitted reference range : <=0.045. The reference r alba was not used to int erpret this result as normal/abnormal . [facility]2019-07-08 12:50:00 Test Item Value Reference Range Interpretation Comments Hepatitis B Surface Hepatitis B Surface Antigen (test code = Antigen Hepatitis B Surface Antigen) [facility]2019-07-08 12:50:00 Test Item Value Reference Range Interpretation Comments Hepatitis B Surface Hepatitis B Surface Antibody (test code = Antibody Hepatitis B Surface Antibody) [facility]2019-07-08 12:50:00 Test Item Value Reference Range Interpretation Comments Hepatitis B Core Total Hepatitis B Core Total Antibody (test code = Antibody Hepatitis B Core Total Antibody) [facility]2019-07-08 12:50:00 Test Item Value Reference Range Interpretation Comments Hepatitis C Antibody Hepatitis C Antibody (test code = Hepatitis C Antibody) [facility]2019-07-08 12:50:00 Test Item Value Reference Range Interpretation Comments Hepatitis C Ab Signal/Cutoff Ratio 0.05 ratio (test code = Hepatitis C Ab Signal/Cutoff Ratio) [facility]2019-07-08 07:36:00 Test Item Value Reference Range Interpretation Comments Rapid Troponin I (test 0.66 See_Comment [Aut omated message] The code = Rapid Troponin system which generated I) this result tra nsmitted reference range : <=0.045. The reference r alba was not used to int erpret this result as normal/abnormal . 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 POSTOPERATIVE DIAGNOSIS: Patent, but significant stenosis of the right subclavian vein with extensive collate ral flow noted. OPERATIVE PROCEDURE: Right subclavian vein venog sofia via the right femoral approach. ANESTHESIA: Lidocaine, Versed, fentanyl. COMPLICATIONS: None. DESCRIPTION OF PROCEDURE: The patient was chinmay t to the electrophysiology laboratory. The right groin wa s prepped and draped in the standard manner. Local Xylocaine w as used. Standard sheaths were placed. Standard catheter advanced. Right subclavian vein venography was performed. All catheter sheaths were removed. No complications. QUIQUE/LYRICL /[id number] 2021-06-18 18:51:18-00:00 LOGAN RUSSO [facility] OPERATIVE/PROCEDURE REPORT JAK MERRILL FACILITY: [facility] Billing #: [id number] Room: [place] [address] MR #: [id number] : 1955 DATE OF PROCEDURE: 06/18/2021 SURGEON: Logan Russo MD PREOPERATIVE DIAGNOSES: 1. Infective endocarditis, Streptococcus bovis. 2. Large vegetation on middle scalp of the anter ior leaflet A2 segment with moderate to severe mitral regurgita tion, severe tricuspid regurgitation, status post previous co ronary artery bypass grafting x3. 3. Chronic end-stage renal disease, on dialysis. POSTOPERATIVE DIAGNOSES: 1. Infective endocarditis, Streptococcus bovis. 2. Large vegetation on middle scalp of the anter ior leaflet A2 segment with moderate to severe mitral regurgita tion, severe tricuspid regurgitation, status post previous co ronary artery bypass grafting x3. 3. Chronic end-stage renal disease, on dialysis. PROCEDURES PERFORMED: Redo sternotomy, extensive lysis of adhesions, complex mitral valve repair with removal of mitral valve mass with resection and mitral valve repair using a 28 mm simulus band f rom Medtronic, tricuspid valve repair with a 28 mm triad annulo plasty band from [employer], placement of left common femoral vein hemodialysis catheter, and ultrasound of femoral vein. PRODUCTION ILLUSTRATOR: Carol Parisi MD. ANESTHETIC: General endotracheal. SECOND COVER MAT MACHINE OPERATOR: Christopher Alvarez. Note: Dr. Parisi was required as my first ass istant. There was not a high enough level resident available f or this complex double valve operation. She helped with identifi cation of vital structures, exposure of the valves, weanin g from bypass, and lysis of adhesions. Myself and Dr. Parisi were present or available throughout the entire procedure. HISTORY: The patient presented with endocarditis . She previously had a BAUER to the LAD, vein to an OM, and a vein to a distal right. They were all patent, but she no w had a mass on her mitral valve with severe mitral regurgita tion and secondary severe tricuspid regurgitation with pu lmonary hypertension. She was in renal failure. She unde rstood the risks of stroke, bleeding, and , and agreed to proceed. FINDINGS: The patient had a mass present on her anterior leaflet of her mitral valve. We were able to get the mitral valve repaired and reconstructed. Heart function looked pretty good. We had to put in a dialysis catheter for c ontinuous dialysis for the Renal team. DESCRIPTION OF PROCEDURE: The patient's chest wa s draped and prepped. The old incision was opened up and the old sternal wires were removed. We then used the oscillating saw taking great care to avoid injury to the heart undernea th. We then freed up the left side and the right side. We th en did an extensive lysis of adhesions along the diaphragm , around the right atrium and left atrium, and carefully arou nd the vein graft on the right, then up and around the aorta . It took us an extra hour to free things up. Once we got thi ngs freed up, we were able to cannulate the aortic arch. We th en used a percutaneous cannula into the right femoral vein , put a superior vena cava cannula in, did an antegrade and retrograde, went on pump, decompressed the heart, crossclamp ed and arrested with cold antegrade and retrograde, which were u sed intermittently throughout the procedure with top ical gluing. We opened up the left atrium and put in the righ t superior pulmonary vein inferiorly. The findings were as noted above. We excised the mass present on the middle scalp of the anterior leaflet and shaved out some anterior leaflet. We freshened it up and it did not have any ruptured chord, so it took 2-0 Ethibond sutures in trigone. The trigone was bro ught up to the sewing ring of a 28 mm simulus band and secured in place. Closed up the left atrium with a single layer of running 3-0 Prolene suture. We meticulously de-aired and rem fide the crossclamp. I should say we also had the mammary clamped during that time and we released it. The heart t hen began to beat, and we placed a ventricular pacing wire an d chest tubes. We then opened up the right atrium medial to the vein graft. Exposure was difficult because of the limited ar ea where we could make an atriotomy, but we eventually were able to see good enough and then took 2-0 Ethibond sutures a round half of the posterior leaflet and three-quarters of the anterior leaflet, brought into the sewing ring with 28 mm triad band and tied in place. It secured in well, so we closed up the right atrium with a double layer of running 4-0 Prolen e suture, meticulously de-aired the heart, and then weaned the patient from pump on moderate inotropic support. Cannula s were removed, their sites secured, and the chest clos ed with wire and absorbable suture. We visualized the femoral vein under ultrasound. We identified it and used the Seldin gary technique and then placed a 5-Spanish catheter and then up- sheath to a 20 hemodialysis catheter. We secured it in place an d then flushed it, and capped in for use in the intensive care unit. We then placed a wound VAC on the closure. I directly pa rticipated in all lopez portions including redo sternotomy, rossi ulation, the entire period of cardiopulmonary bypass, placeme nt of the dialysis catheter, and was otherwise immediately available for the entire operation. TOTAL CARDIOPULMONARY BYPASS TIME: 119 minutes. TOTAL CROSSCLAMP TIME: 53 minutes. ANTIBIOTICS: Of note, we gave Ancef and vancomyc in for antibiotics, which we will discontinue within 48 hours. PROPHYLAXIS: We did not use any specific DVT pro phylaxis since this is not indicated for cardiac surgical proce dures. MRM/MODL /[id number]
[2022-09-11] MEDS ORDERED: ONDANSETRON 4 MG/2 ML VIAL ONE (11:58)
[2022-09-11 12:22] LABS: Absolute Lymphocytes (CBC) 0.8 K/uL (0.7-4.9); Lymphocytes % 22.7 % (15.3-44.8); MCV 98.7 fL (80-100); MPV 8.8 fL (7.6-11.3); RBC Red Blood Cell Count 3.44 M/uL (3.86-4.86)
--- NOTE | 2022-09-11 12:34 | RAD REPORT ---
EXAM DESCRIPTION: CTAbdomen Pelvis Wo Contrast - 09/11/2022 12:17 pm CLINICAL HISTORY: diarrhea, abd cramps COMPARISON: Abdomen Pelvis Wo Contrast dated 07/02/2022; Abdomen Pelvis Wo Contrast dated 2; Abdomen Pelvis W Contrast dated 06/07/2021; Abdomen Pelvis Wo Contrast dated 02/20/2020 TECHNIQUE: CT of the abdomen and pelvis was performed without contrast. All CT scans are performed using dose optimization technique as appropriate and may include automated exposure control or mA/KV adjustment according to patient size. FINDINGS: Lower chest: Chronic loculated right pleural effusion. Cardiomegaly. Chronic loculated jux ta pericardial fluid. Pacemaker. Coronary artery calcifications. Liver: Mild cirrhotic liver morphology. No focal mass is appreciated. Biliary: Cholelithiasis. Stomach: No significant focal abnormality. Duodenum: No significant focal abnormality. Pancreas: No significant abnormality. Spleen: Splenomegaly. Adrenal: No suspicious lesions. Kidney/ureter: No hydronephrosis. No renal calculi. Atrophic kidneys. Small low-density renal lesions are unchanged, probably benign. Retroperitoneum: No retroperitoneal adenopathy. Vascular: No aneurysm. Advanced atherosclerosis . Left renal artery stent. Bowel: No significant focal abnormality. Peritoneum: Periportal edema which may be due to fluid status. Mild anasarca. Mild to moderate ascite s. Bladder: Grossly unremarkable. Reproductive: No adnexal masses. Bones: No acute fracture. Other: n/a IMPRESSION: No acute intra-abdominal or pelvic finding. Numerous incidental findings as noted above which are similar to 07/02/2022.
[2022-09-11 12:37] LABS: Albumin 3.3 g/dL (3.4-5.0); Bilirubin Total 0.7 mg/dL (0.2-1.0); Potassium 3.8 mEq/L (3.5-5.1); Protein, Total 9.3 g/dL (6.4-8.2)
--- NOTE | 2022-09-11 13:47 | EDPHYS ---
Physician Documentation [facility] Name: Qiana Valdez Age: 67 yrs Sex: Female : 1955 Arrival Date: 09/11/2022 Time: 10:40 Bed 7 Private MD: ED Physician Adam Lau HPI: 09/11 11:49 This 67 yrs old Female presents to ER via Wheelchair with complaints of rn Abdominal Pain, Diarrhea, Ingested mold. 11:49 The patient presents to the emergency department with nausea, diarrhea, abdominal pain. rn Onset: The symptoms/episode began/occurred today. Possible causes: mold ingestion. The symptoms are aggravated by nothing. The symptoms are alleviated by nothing. Associated signs and symptoms: Pertinent positives: abdominal pain, diarrhea, nausea, Pertinent negatives: fever, GI bleeding. Severity of symptoms: At their worst the symptoms were moderate in the emergency department the symptoms are unchanged. The patient has experienced similar episodes in the past. The patient has not recently seen a physician. Pt reports abd cramping, diarrhea, nausea, began shortly after ingesting moldy salsa. NO fever. + diffuse cramping. Non-bloody diarrhea. . Historical: - Allergies: 11:17 No Known Allergies; bp - PMHx: 11:17 Chronic ischemic heart disease; Diabetes - IDDM; DIALYSIS MWF; ESRD; GERD; High bp Cholesterol; hyperparathyroidism; Hypertension; IRON DEFICIENCY ANEMIA; Myocardial infarction; Pacemaker; - PSHx: 11:17 Coronary artery bypass graft; bp - Immunization history:: Adult Immunizations up to date. - Social history:: Smoking status: Patient denies any tobacco usage or history of. - Family history:: not pertinent. - Hospitalizations: : No recent hospitalization is reported. ROS: 11:49 Constitutional: Negative for fever, chills, and weight loss, Eyes: Negative for injury, rn pain, redness, and discharge, Neck: Negative for injury, pain, and swelling, Cardiovascular: Negative for chest pain, palpitations, and edema, Respiratory: Negative for shortness of breath, cough, wheezing, and pleuritic chest pain, Abdomen/GI: + abd pain and nausea/diarrhea Back: Negative for injury and pain, MS/Extremity: Negative for injury and deformity, Skin: Negative for injury, rash, and discoloration, Neuro: Negative for headache, numbness, tingling, and seizure. Exam: 11:49 Constitutional: This is a well developed, well nourished patient who is awake, alert, rn appears uncomfortable Head/Face: Normocephalic, atraumatic. Cardiovascular: Regular rate and rhythm. No pulse deficits. Respiratory: No increased work of breathing, no retractions or nasal flaring. Abdomen/GI: soft, + mid abd tenderness, no rebound Skin: Warm, dry MS/ Extremity: Pulses equal, no cyanosis. Neuro: Awake and alert, GCS 15 Vital Signs: 11:15 BP 132 / 67; Pulse 73; Resp 16; Temp 97.5; Pulse Ox 94% on 3 lpm NC; bp 14:05 BP 136 / 82; Pulse 72; Resp 16; ss MDM: 10:54 Patient medically screened. rn 13:38 Differential diagnosis: Nonspecific abd pain, pancreatitis, viral gastroenteritis, rn gastroenteritis, exposure to mold. Data reviewed: vital signs, nurses notes, lab test result(s), radiologic studies, CT scan, and as a result, I will discharge patient. Counseling: I had a detailed discussion with the patient and/or guardian regarding: the historical points, exam findings, and any diagnostic results supporting the discharge/admit diagnosis, lab results, radiology results, the need for outpatient follow up, to return to the emergency department if symptoms worsen or persist or if there are any questions or concerns that arise at home. Response to treatment: the patient's symptoms have markedly improved after treatment, and as a result, I will discharge patient. Special discussion: Based on the patient's Hx, exam, and Dx evaluation, there is no indication for emergent surgery or inpatient Tx. It is understood by the patient/guardian that if the Sx's persist or worsen they need to return immediately for re-evaluation. I discussed with the patient/guardian in detail that at this point there is no indication for admission to the hospital. It is understood, however, that if the symptoms persist or worsen the patient needs to return immediately for re-evaluation. ED course: NO acute findings in blood or imaging, will dc home with zofran prn and pain meds, return precautions given and understood, family going to go through fridge to remove other moldy products. . 09/11 11:11 Order name: CBC with Diff; Complete Time: 12:49 rn 09/11 11:11 Order name: CMP; Complete Time: 12:49 rn 09/11 11:11 Order name: Lipase; Complete Time: 12:49 rn 09/11 11:11 Order name: CT Abd/Pelvis - Without Contrast; Complete Time: 12:49 rn 09/11 11:11 Order name: IV Saline Lock; Complete Time: 12:12 rn 09/11 11:11 Order name: Labs collected and sent; Complete Time: 12:12 rn Administered Medications: 12:12 Drug: Ondansetron IVP 4 mg Route: IVP; Site: left hand; mb9 14:11 Follow up: Response: No adverse reaction ss 13:50 Drug: traMADol PO 50 mg Route: PO; ss 14:11 Follow up: Response: Medication administered at discharge. Disposition Summary: 09/11/22 13:47 Discharge Ordered Location: Home rn Problem: new rn Symptoms: have improved rn Condition: Stable rn Diagnosis - Abdominal pain, unspecified rn - Diarrhea, unspecified rn - Ingestion of mold-containing food substance rn Followup: rn - With: Private Physician - When: As needed - Reason: Recheck today's complaints, Re-evaluation by your physician Discharge Instructions: - Discharge Summary Sheet rn - Abdominal Pain, Adult rn - Diarrhea, Adult rn Forms: - Medication Reconciliation Form rn - Thank You Letter rn - Antibiotic turner and former automatic - Prescription Opioid Use rn Prescriptions: - ondansetron 4 mg Oral Tablet,disintegrating - take 1 tablet by ORAL route every 8 hours As needed; 12 tablet; Refills: 0, rn Product Selection Permitted - Tramadol 50 mg Oral Tablet - take 1 tablet by ORAL route every 8 hours as needed; 12 tablet; Refills: 0, rn Product Selection Permitted Signatures: Dispatcher [employer] Adam Stuart MD MD rn Blanchard, Shelby, RN RN Koffi Marc RN RN Brittni Marroquin RN RN mb9
--- NOTE | 2022-09-11 13:47 | ER ---
Nurse's Notes [facility] Name: Qiana Valdez Age: 67 yrs Sex: Female : 1955 Arrival Date: 09/11/2022 Time: 10:40 Bed 7 Private MD: Diagnosis: Abdominal pain, unspecified;Diarrhea, unspecified;Ingestion of mold-containing food substance Presentation: 09/11 11:15 Chief complaint: Patient states: NAUSEA AND DIARRHEA AFTER EATING MOLDY SALSA LAST PM. bp Coronavirus screen: At this time, the client does not indicate any symptoms associated with coronavirus-19. Ebola Screen: No symptoms or risks identified at this time. Initial Sepsis Screen: Does the patient meet any 2 criteria? No. Patient's initial sepsis screen is negative. Does the patient have a suspected source of infection? No. Patient's initial sepsis screen is negative. Risk Assessment: Do you want to hurt yourself or someone else? Patient reports no desire to harm self or others. Onset of symptoms was September 11, 2022. 11:15 Method Of Arrival: Wheelchair bp 11:15 Acuity: SIXTO 3 bp Historical: - Allergies: 11:17 No Known Allergies; bp - PMHx: 11:17 Chronic ischemic heart disease; Diabetes - IDDM; DIALYSIS MWF; ESRD; GERD; High bp Cholesterol; hyperparathyroidism; Hypertension; IRON DEFICIENCY ANEMIA; Myocardial infarction; Pacemaker; - PSHx: 11:17 Coronary artery bypass graft; bp - Immunization history:: Adult Immunizations up to date. - Social history:: Smoking status: Patient denies any tobacco usage or history of. - Family history:: not pertinent. - Hospitalizations: : No recent hospitalization is reported. Screenin:05 [facility] ED Fall Risk Assessment (Adult) History of falling in the last 3 months, ss including since admission No falls in past 3 months (0 pts). Abuse screen: Denies threats or abuse. Denies injuries from another. Nutritional screening: No deficits noted. Tuberculosis screening: Never had TB. Assessment: 12:12 Reassessment: pt taken to CT via wheelchair. mb9 14:05 General: Appears in no apparent distress. comfortable, Behavior is calm, cooperative. ss Pain: Complains of pain in abdomen. Neuro: Level of Consciousness is awake, alert, obeys commands. Cardiovascular: Dialysis shunt: in the dorsal aspect of right forearm, with palpable thrill, with auscultated bruit, with no edema. Respiratory: Airway is patent Respiratory effort is even, unlabored, Respiratory pattern is regular, symmetrical. Derm: Skin is intact, is healthy with good turgor, Skin is dry, Skin is pink, warm \T\ dry. normal. Vital Signs: 11:15 BP 132 / 67; Pulse 73; Resp 16; Temp 97.5; Pulse Ox 94% on 3 lpm NC; bp 14:05 BP 136 / 82; Pulse 72; Resp 16; ss ED Course: 10:44 Patient arrived in ED. im 10:53 Adam Lau MD is Attending Physician. rn 11:17 Triage completed. bp 11:17 Arm band placed on. bp 12:12 CBC with Diff Sent. mb9 12:12 CMP Sent. mb9 12:12 Lipase Sent. mb9 12:12 Inserted saline lock: 24 gauge in left hand, using aseptic technique. mb9 12:19 CT Abd/Pelvis - Without Contrast In Process Unspecified. EDMS 13:50 Katt Olguin, SUNITA is Primary Nurse. ss 14:05 Patient has correct armband on for positive identification. Bed in low position. ss 14:05 No provider procedures requiring assistance completed. IV discontinued, intact, ss bleeding controlled, No redness/swelling at site. Pressure dressing applied. Administered Medications: 12:12 Drug: Ondansetron IVP 4 mg Route: IVP; Site: left hand; mb9 14:11 Follow up: Response: No adverse reaction ss 13:50 Drug: traMADol PO 50 mg Route: PO; ss 14:11 Follow up: Response: Medication administered at discharge. ss Medication: 14:05 VIS not applicable for this client. Outcome: 13:47 Discharge ordered by . rn 14:09 Discharged to home ambulatory. ss 14:09 Condition: good 14:09 Discharge instructions given to patient, family, Instructed on discharge instructions, follow up and referral plans. medication usage, Demonstrated understanding of instructions, follow-up care, medications, Prescriptions given X 2. 14:11 Patient left the ED. Signatures: Dispatcher [employer] EDMS Adam Lau MD MD rn Blanchard, Shelby, RN RN Koffi Dubose RN RN Brittni Marroquin RN RN mb9 Zaria Daigle im
[2022-09-11] MEDS ORDERED: TRAMADOL HCL 50 MG TAB ONE (13:55)
[2022-09-11 15:10] VITALS: TEMP 97.5; O2SAT 94
[2022-09-11 15:14] VITALS: BP 136/82
== END 2022-09-11 14:11 | disposition home or self-care (01) ==
LOC: ER 10:40
DX: R19.7 Diarrhea, unspecified (principal); T62.91XA Toxic effect of unspecified noxious substance eaten as food, accidental (unintentional), initial encounter; E11.22 Type 2 diabetes mellitus with diabetic chronic kidney disease; I12.0 Hypertensive chronic kidney disease with stage 5 chronic kidney disease or end stage renal disease; N18.6 End stage renal disease; Z99.2 Dependence on renal dialysis; Z95.1 Presence of aortocoronary bypass graft; Z95.0 Presence of cardiac pacemaker
CPT/HCPCS: 85025; 36415; 83690; 80053; 74176; 96374; 99284; J2405

== ENCOUNTER 2022-09-16 14:01 | Inpatient (IN) | payer OTHER ==
--- NOTE | 2022-09-16 14:39 | RAD REPORT ---
EXAM DESCRIPTION: RAD - Chest Single View - 09/16/2022 2:31 pm CLINICAL HISTORY: COUGH Chest pain. COMPARISON: <Comparisons> 07/21/2022 FINDINGS: Portable technique limits examination quality. Moderate chronic right pleural effusion is noted. Increased opacification of the right upper lobe may indicate pulmonary edema. The heart is moderately enlarged. Sternotomy wires.Dual lead pacer device noted.
[2022-09-16] MEDS ORDERED: NA CHLORIDE 0.9% 250 ML ONE (14:43)
[2022-09-16 14:45] LABS: Absolute Lymphocytes (CBC) 1.3 K/uL (0.7-4.9); Hematocrit 28.3 % (36.0-45.0); Lymphocytes % 23.7 % (15.3-44.8); MCV 100.4 fL (80-100); MPV 8.8 fL (7.6-11.3); RBC Red Blood Cell Count 2.82 M/uL (3.86-4.86)
--- OUTSIDE RECORDS SUMMARY | 2022-09-16 14:52 | XMS REPORT | Continuity of Care Document ---
:1955 Author Organization [facility] t Address [address] [place] [address] Care Team Providers Name Role Phone Dianna Nunes MD, Wild Noel Primary Care Physician [phone] ANGELA LOCO Attending Clinician Unavail able FRACISCO HAYDEN Attending Clinician Unavailable Adele Whitney Attending Clinician Doctor Unassigned, [place] Attending Clinician Unavailable Fracisco Hayden MD Attending Clinician Candido Balderrama MD Attending Clinician Niki Dill RN Attending Clinician Unavailable BRENDA FUENTES Attending Clinician Unavailable Dorian TRUJILLO, Brenda Attending [...] Clinician Unavailable Kenny TRUJILLO, Joss Attending Clinician Kpi TRUJILLO, Rony Attending Clinician Shiela TRUJILLO, Jameson Attending Clinician León TRUJILLO, Kanwal Attending Clinician Samia TRUJILLO, Mary Kate Christine Attending Clinician Ladarius Jc MD, Clary Resendiz Attending Clinici an Harjeet TRUJILLO, Luh Attending Clinician Logan Russo MD Attending Clinician LOGAN RUSSO Attending Clinician Unavailable Beronica TRUJILLO, Angela Torres Attending Clinician [phone] Mitchel TRUJILLO, Nicola Thomas Attending Clinician Ju TRUJILLO, Krzysztof Biggs Attending Clinician Marissa TRUJILLO, Fadia Smith Attending Clinician Max TRUJILLO, Asad Whitman Attending Clinician [phone] Nikolay TRUJILLO, Vahid Mai Attending Clinician Ellie [...] Date Expiration Date S justice [employer] MEDICARE [id number] 2020 00:00:00 MEDICAID [facility] [id number] 2019 00:00:00 WELLMED/AARP MCARE [id number] 2021 ADV CHOICE PPO 00:00:00 MEDICAID OF [place] [id number] 2018 00:00:00 MEDICARE PART A [id number] 2014 \\T\\ B 00:00:00 [place] [id number] 2020 HEALTHCARE/AARP 00:00:00 Problems Condition Condition Condition Status Onset Resolution Last Treating Co mments Source Name Details Category Date Date Treatment Clinician Date S/P MVR S/P MVR Disease Active Univers (mitral (mitral 09-29 ity of valve valve 00:00: [place] repair) repair) 00 Medical Branch S/P TVR [...] (ADL) (ADL) Branch Dyslipidem Dyslipidem Disease Active 2022-0 U nivers ia ia 6-03 ity of 00:00: [place] 00 Medical Branch Decreased Decreased Disease Active Uni vers appetite appetite 6-03 ity of 00:00: [place] [facility] Seizure Seizure Disease Active Univers 6-03 ity of 00:00: [place] [facility] 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 it 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 depressive depressive Br anch disorder, disorder, without without psychotic psychotic features features Generalize Generalize Disease Active U nivers d anxiety d anxiety 6 ity of disorder disorder 00:00: [place] 00 Medical Branch Panic Panic Disease Active Univers attacks attacks 09-04 ity of 00:00: [place] [address] Medical Branch Encounter Encounter Disease Active Uni vers to to 08-28 ity of establish establish 00:00: [facility] care care 00 [facility] Branch Hepatic Hepatic Disease Active Univers cirrhosis, cirrhosis, 08-28 it y of unspecifie unspecifie [place] hepatic 00 Medi yoel cirrhosis cirrhosis Bran ch type, type, unspecifie unspecifie d whether d whether ascites ascites present present E44.1 Mild E44.1 Mild Disease Active U yajairaers protein-ca protein-ca 4-05 it y of sadi sadi 00:00: [place] malnutriti malnutriti 00 Me dical on on Branch Hematochez Hematochez Disease Active U nivers ia ia 4-04 ity of 00:00: [place] 00 [facility] Branch MV MV Disease Active [facility] Endocardit Endocardit 3-17 Felicita kes is is 00:00: Medical [address] [place] [address] Moderate Moderate Disease Active [facility] t tricuspid tricuspid 3-17 [facility] regurgitat regurgitat 00:00: Me dical ion S/P ion S/P 00 [place] Tricuspid Tricuspid valve valve repair repair (Drs. Russo (Drs. Russo and and Isak Preventza 06/18/2021 06/18/2021 ) ) S/P CABG x S/P CABG x Disease Active [facility] 3 3 3[facility]17 [facility] (BAUER>LAD, (BAUER>LAD, 00:00: Me dical SVG>OM, SVG>OM, 00 Center SVG>PDA, SVG>PDA, 2016) 2016) S/P S/P Disease Active [facility] placement placement 3-17 [facility] s of cardiac of cardiac 00:00: Me dical pacemaker pacemaker 00 Cent er (2018) (2018) Pulmonary Pulmonary Disease Recurre [facility] HTN (HCC), HTN (HCC), nce 3-17 Felicita kes PASP 65-70 PASP 65-70 00:00: Me dical 00 Center PFO PFO Disease Active [facility] (patent (patent 3-17 [facility] foramen foramen 00:00: Medical ovale) ovale) 00 Center small small Hypothermi Hypothermi Disease Active [facility] a, acute a, acute 3-17 [facility] post-op post-op 00:00: Medical 00 [place] Acute Acute Disease Active [facility] blood loss blood loss 3-17 Felicit[facility] kes anemia anemia 00:00: Medical 00 [place] Acute Acute Disease Active [facility] postoperat postoperat 3-17 [facility] kes cristela pain cristela pain 00:00: Medica l 00 [place] Acute Acute Disease Active [facility] encephalop encephalop 3-12 Felicit[facility] kes athy athy 00:00: Medical 00 [place] HTN HTN Disease Active [facility] (hypertens [...] 2-13 it y of on on 00:00: [address] Branch Acute on Acute on Disease Active 2022-0 Unive rs chronic chronic 2-13 ity of respirator [place] failure 00 Medi [place]el with with Branch hypoxia hypoxia Coronary Coronary Disease Active Unive rs artery artery 2-12 ity of disease disease 00:00: [place] involving involving 00 Medi [place]el [place] Branch coronary coronary artery of artery of [place] heart with heart with angina angina pectoris pectoris ESRD (end ESRD (end Disease Active Uni vers stage stage 2-12 ity of renal renal 00:00: [place] disease) disease) 00 Medica l on on Branch dialysis dialysis Coronary Coronary Disease Active Unive rs artery artery 2-12 ity of disease disease 00:00: [place] involving involving 00 Medi yoel [place] Branch coronary coronary artery of artery of [place] heart with heart with angina angina pectoris pectoris Acute on Acute on Disease Active Unive rs chronic chronic 2-12 ity of diastolic diastolic 00:00: [place] congestive congestive 00 Me dical heart heart Branch failure failure PAD PAD Disease Active Univers (periphera (periphera 2-12 it y of l artery l artery 00:00: [place] disease) disease) 00 Medica l Branch Primary Primary Disease Active Univers hypertensi hypertensi 2-12 it y of on on 00:00: [place] 00 Medical Branch 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 00:00: [place] with with 00 Medical kidney kidney Branch complicati complicati on, on, without without long-term long-term current current use of use of insulin insulin Hypertensi Hypertensi Disease Active U nivcatherine on, on, 2-11 ity of unspecifie unspecifie [...] Univers concrete concrete 2-11 ity of 00:00: [place] [facility] Acute pain Acute pain Disease Active U nivers of right of right 2-11 ity of knee knee 00:00: [place] [facility] Dizziness Dizziness Disease Active Uni vers 2-11 ity of 00:00: [place] [facility] Lower leg Lower leg Disease Active Uni vers edema edema 2-11 ity of 00:00: [place] [facility] Abnormal Abnormal Disease Active Unive rs EKG EKG 2-11 ity of 00:00: [place] [facility] Chest Chest Disease Active Univers pressure pressure 2-11 ity of 00:00: [place] [facility] Chest pain Chest pain Disease Active U nivers 2-11 ity of 00:00: [place] [facility] Postmenopa Postmenopa Disease Active U nivers usal usal 4-20 ity of bleeding bleeding 00:00: [place] [facility] Obesity Obesity Disease Active Univers (BMI (BMI 4-20 ity of 30-39.9) 30-39.9) 00:00: [place] [facility] Hematoma Hematoma Disease Active Metho [...] of 22:28:00 l d weakness generalize He tyler d weakness Problem 02/19/[address] [facility] Hyperkalem Hyperkale Problem 2019-02-19 Memdariel ia brett 22:28:00 l Problem [place] 02/19/[address] [facility] Elevated Elevated Condition 2019-02-19 [place] brain brain 22:28:00 l natriureti natriureti He rmann c peptide c peptide (BNP) (BNP) level level Condition 02/19/2019 [facility] Episode of Episode Condition 2019-02-19 Memoria generalize of 22:28:00 l d weakness generalize He rmann d weakness Condition 02/19/2019 [facility] Hyperkalem Hyperkale Condition 2019-02-19 Memoria ia brett 22:28:00 l Condition [place] 02/19/2019 [facility] [place] Hypertensi Hypertens Condition 2019-02-19 Memoria on with ion with 22:28:00 l goal to be goal to be He rmann determined determined Condition 02/19/2019 [facility] [place] Acute Acute Condition 2019-02-19 Mem oria respirator respirator 22:28:00 l y disease y disease Herm ivelisse Condition 02/19/2019 [facility] [place] End-stage End-stage Condition 2019-02-19 Memoria renal renal 22:28:00 l disease on disease on He rmann hemodialys hemodialys is is Condition 02/19/2019 [facility] [place] Type 2 Type 2 Condition 2019-02-19 Me moria diabetes diabetes 22:28:00 l mellitus mellitus Freddy n Condition 02/19/2019 [facility] End-stage End-stage Problem 2019-02-19 Memoria renal renal 22:28:00 l disease on disease on He rmann hemodialys hemodialys is is Problem 02/19/2019 [facility] Upper Upper Problem 2019-02-19 Dickson kulwinder respirator respirator 22:28:00 l y y [place] infection infection Problem 02/19/2019 [facility] Elevated Elevated Problem 2019-02-19 Memoria troponin troponin 22:28:00 l level level Juanito Problem 02/19/2019 [facility] Pacemaker Pacemaker Disease [...] Active Univers ALLERGIE Class ity of S [facility] NO KNOWN Allergy Active [facility] ALLERGIE S Family History Family Member Diagnosis Comments Start Date Stop Date Source Natural brother [facility] Natural father Diabetes [facility] Natural mother Diabetes [facility] Natural sister [facility] Social History Social Habit Start Date Stop Date Quantity Comments Source History SDOH [facility] Alcohol Std Drinks Hospit al History SDOH [facility] Alcohol Binge Hospital History SDMA [facility] Alcohol Comment Hospital Gender identity [facility] Sexual orientation [facility] Hospital Exposure to 2021-09-19 2021-09-29 Not sure [facility] [place] [facility]-CoV-2 (event) 00:00:00 14:42:00 [facility] Tobacco use and 2020-07-24 2020-07-[address] Felicita kes exposure 00:00:00 00:00:00 tobacco non-user Medical Center Social History 2019-02-19 2019-02-19 [facility] 22:28:00 22:28:00 History of Social 2018-11-21 2018-11-[address] function 00:00:00 00:00:00 Hospital Alcohol intake 2018-10-27 2018-10-27 Current Taoist 00:00:00 00:00:00 non-drinker of Hospital alcohol (finding) History [facility] 2018-10-26 2018-10-26 1 Taoist Alcohol Frequency 00:00:00 00:00:00 Hospita l Sex [birth year] At [birth year] Taoist 00:00:00 00:00:00 Hospital Smoking Status Start Date Stop Date Source Unknown if ever smoked [facility]it y [facility] Never smoked tobacco [facility] Medications Ordered Filled Start Stop Current Ordering Indication Dosage Frequency Signature Comments Components Source Medication Medication Date Date Medication? Clinician (SIG) Name Name atorvastacyndie 2022- No 40mg Take 40 mg Univers n 40 mg 08-02 by mouth ity of tablet 10:24: 00:00 at [place] 30 :00 bedtime. Medical Branch atorvastati 2022- No 40mg Take 40 mg Univers n 40 mg 08-02 by mouth ity of tablet 10:24: 00:00 at [place] 30 :00 bedtime. Medical Branch ATORVASTATI Yes [id number] TAKE 1 Univers N 40 mg 5-01 TABLET BY ity of tablet 00:00: MOUTH AT [place] BEDTIME Medical Branch ATORVASTATI 2022-0 Yes [id number] TAKE 1 Univers N 40 mg 5-01 TABLET BY ity of tablet 00:00: MOUTH AT [place] BEDTIME Medical Branch atorvastati 2021-0 Yes 40mg [...] 15:14: at [place] bedtime. Medical Branch atorvastati 2-0 Yes 40mg Take 40 mg Univers n 40 mg 6-28 by mouth ity of tablet 15:14: at [place] bedtime. Medical Branch atorvastati 2-0 Yes 40mg Take 40 mg Univers n 40 mg 6-28 by mouth ity of tablet 15:14: at [place] bedtime. Medical Branch atorvastati 2-0 Yes 40mg Take 40 mg Univers n 40 mg 6-28 by mouth ity of tablet 15:14: at [place] bedtime. Medical Branch atorvastati 2-0 Yes 40mg Take 40 mg Univers n 40 mg 6-28 by mouth ity of tablet 15:14: at [place] bedtime. Medical Branch clopidogreL 2-0 Yes [id number] 75mg Take 1 Univers 75 mg 6-28 tablet by ity of tablet 00:00: mouth [place] 00 daily. Medical Branch clopidogreL 2-0 Yes [id number] 75mg Take 1 Univers 75 mg 6-28 tablet by ity of tablet 00:00: mouth [place] 00 daily. Medical Branch clopidogreL 2-0 Yes [id number] 75mg Take 1 Univers 75 mg 6-28 tablet by ity of tablet 00:00: mouth [place] 00 daily. Medical Branch clopidogreL 2-0 Yes [id number] 75mg Take 1 Univers 75 mg 6-28 tablet by ity of tablet 00:00: mouth [place] 00 daily. Medical Branch clopidogreL 2-0 Yes [id number] 75mg Take 1 Univers 75 mg 6-28 tablet by ity of tablet 00:00: mouth [place] 00 daily. Medical Branch clopidogreL 2-0 Yes [id number] 75mg Take 1 Univers 75 mg 6-28 tablet by ity of tablet 00:00: mouth [place] 00 daily. Medical Branch clopidogreL 2022-0 Yes [id number] 75mg Take 1 Univers 75 mg 6-28 tablet by ity of tablet 00:00: mouth [place] 00 daily. Medical Branch clopidogreL 2022-0 Yes [id number] 75mg Take 1 Univers 75 mg 6-28 tablet by ity of tablet 00:00: mouth [place] 00 daily. Medical Branch clopidogreL 2022-0 Yes [id number] 75mg Take 1 Univers 75 mg 6-28 tablet by ity of tablet 00:00: mouth [place] 00 daily. Medical Branch clopidogreL 2022-0 Yes [id number] 75mg Take 1 Univers 75 mg 6-28 tablet by ity of tablet 00:00: mouth [place] 00 daily. Medical Branch clopidogreL 2021-0 Yes [id number] 75mg Take 1 Univers 75 mg 6-28 tablet by ity of tablet 00:00: mouth [place] 00 daily. Medical Branch clopidogreL 2021-0 Yes [id number] 75mg Take 1 Univers 75 mg 6-28 tablet by ity of tablet 00:00: mouth [place] 00 daily. Medical Branch clopidogreL 2021-0 Yes [id number] 75mg Take 1 Univers 75 mg 6-28 tablet by ity of tablet 00:00: mouth [place] 00 daily. Medical Branch clopidogreL 2021-0 Yes [id number] 75mg Take 1 Univers 75 mg 6-28 tablet by ity of tablet 00:00: mouth [place] 00 daily. Medical Branch clopidogreL 2021-0 Yes [id number] 75mg Take 1 Univers 75 mg 6-28 tablet by ity of tablet 00:00: mouth [place] 00 daily. Medical Branch clopidogreL 2021-0 Yes [id number] 75mg Take 1 Univers 75 mg 6-28 tablet by ity of tablet 00:00: mouth [place] 00 daily. Medical Branch clopidogreL 2021-0 Yes [id number] 75mg Take 1 Univers 75 mg 6-28 [...] mouth 2 [place] 33 (two) Medical times [place] daily. NIFEdipine 2021-0 Yes 10mg Take 10 [...] mouth 2 [place] 33 (two) Medical times [place] daily. NIFEdipine 2021-0 Yes 10mg Take 10 [...] mouth 2 [place] 33 (two) Medical times [place] daily. NIFEdipine 2021-0 Yes 10mg Take 10 [...] mouth 2 [place] 33 (two) Medical times [place] daily. NIFEdipine 2021-0 Yes 10mg Take 10 [...] mg by ity of 10:47: mouth 2 [place] [address] (two) Medical times [place] daily. NIFEdipine 2021-0 Yes 10mg Take 10 mg U nivers 10 mg 6-03 by mouth 3 ity of capsule 10:47: (three) [place] [address] times Medical daily. Branch levETIRAcet 0 Yes [...] mg by ity of 10:47: mouth 2 [place] [address] (two) Medical times [place] daily. NIFEdipine 2021-0 Yes 10mg Take 10 [...] mouth 2 [place] 33 (two) Medical times [place] daily. NIFEdipine 2021-0 Yes 10mg Take 10 [...] mouth 2 [place] 33 (two) Medical times [place] daily. NIFEdipine 2-0 Yes 10mg Take 10 [...] [place] 33 times Medical daily. Branch levETIRAcet Yes [...] mouth 2 [place] 33 (two) Medical times [place] daily. NIFEdipine 0 Yes 10mg Take 10 [...] and Tuesday. After dialysis mirtazapine 0 Yes [id number] 15mg Take 1 Univers (REMERON) 6-03 tablet by ity o f 15 mg 00:00: mouth at [place] tablet 00 bedtime. Medical Branch traZODone 2021-0 Yes [id number] 50mg Take 1 Un kecia 50 mg 6-03 tablet by ity of tablet 00:00: mouth at [place] 00 bedtime. Medical Branch mirtazapine 2021-0 Yes [id number] 15mg Take 1 Univers (REMERON) 6-03 tablet by ity o f 15 mg 00:00: mouth at [place] tablet 00 bedtime. Medical Branch traZODone 2021-0 Yes [id number] 50mg Take 1 Un kecia 50 mg 6-03 tablet by ity of tablet 00:00: mouth at [place] 00 bedtime. Medical Branch mirtazapine 2021-0 Yes [id number] 15mg Take 1 Univers (REMERON) 6-03 tablet by ity o f 15 mg 00:00: mouth at [place] tablet 00 bedtime. Medical Branch traZODone 2021-0 Yes [id number] 50mg Take 1 Un kecia 50 mg 6-03 tablet by ity of tablet 00:00: mouth at [place] 00 bedtime. Medical Branch mirtazapine 2021-0 Yes [id number] 15mg Take 1 Univers (REMERON) 6-03 tablet by ity o f 15 mg 00:00: mouth at [place] tablet 00 bedtime. Medical Branch traZODone 2021-0 Yes [id number] 50mg Take 1 Un kecia 50 mg 6-03 tablet by ity of tablet 00:00: mouth at [place] 00 bedtime. Medical Branch mirtazapine 2021-0 Yes [id number] 15mg Take 1 Univers (REMERON) 6-03 tablet by ity o f 15 mg 00:00: mouth at [place] tablet 00 bedtime. Medical Branch traZODone 2021-0 Yes [id number] 50mg Take 1 Un kecia 50 mg 6-03 tablet by ity of tablet 00:00: mouth at [place] 00 bedtime. Medical Branch mirtazapine 2021-0 Yes [id number] 15mg Take 1 Univers (REMERON) 6-03 tablet by ity o f 15 mg 00:00: mouth at [place] tablet 00 bedtime. Medical Branch traZODone 2021-0 Yes [id number] 50mg Take 1 Un kecia 50 mg 6-03 tablet by ity of tablet 00:00: mouth at [place] 00 bedtime. Medical Branch mirtazapine 2021-0 Yes [id number] 15mg Take 1 Univers (REMERON) 6-03 tablet by ity o f 15 mg 00:00: mouth at [place] tablet 00 bedtime. Medical Branch traZODone 2021-0 Yes [id number] 50mg Take 1 Un kecia 50 mg 6-03 tablet by ity of tablet 00:00: mouth at [place] 00 bedtime. Medical Branch mirtazapine 2021-0 Yes [id number] 15mg Take 1 Univers (REMERON) 6-03 tablet by ity o f 15 mg 00:00: mouth at [place] tablet 00 bedtime. Medical Branch traZODone 2021-0 Yes [id number] 50mg Take 1 Un kecia 50 mg 6-03 tablet by ity of tablet 00:00: mouth at [place] 00 bedtime. Medical Branch mirtazapine 2021-0 Yes [id number] 15mg Take 1 Univers (REMERON) 6-03 tablet by ity o f 15 mg 00:00: mouth at [place] tablet 00 bedtime. Medical Branch traZODone 2021-0 Yes [id number] 50mg Take 1 Un kecia 50 mg 6-03 tablet by ity of tablet 00:00: mouth at [place] 00 bedtime. Medical Branch mirtazapine 2021-0 Yes [id number] 15mg Take 1 Univers (REMERON) 6-03 tablet by ity o f 15 mg 00:00: mouth at [place] tablet 00 bedtime. Medical Branch traZODone 2021-0 Yes [id number] 50mg Take 1 Un kecia 50 mg 6-03 tablet by ity of tablet 00:00: mouth at [place] 00 bedtime. Medical Branch mirtazapine 2021-0 Yes [id number] 15mg Take 1 Univers ([place]ER[place]) 6-03 tablet by ity o f 15 mg 00:00: mouth at [place] tablet 00 bedtime. Medical Branch traZODone 2021-0 Yes [id number] 50mg Take 1 Un kecia 50 mg 6-03 tablet by ity of tablet 00:00: mouth at [place] 00 bedtime. Medical Branch mirtazapine 2021-0 Yes [id number] 15mg Take 1 Univers (REMERON) 6-03 tablet by ity o f 15 mg 00:00: mouth at [place] tablet 00 bedtime. Medical Branch traZODone 2021-0 Yes [id number] 50mg Take 1 Un kecia 50 mg 6-03 tablet by ity of tablet 00:00: mouth at [place] 00 bedtime. Medical Branch mirtazapine 2021-0 Yes [id number] 15mg Take 1 Univers ([place]ER[place]) 6-03 tablet by ity o f 15 mg 00:00: mouth at [place] tablet 00 bedtime. Medical Branch traZODone 2021-0 Yes [id number] 50mg Take 1 Un kecia 50 mg 6-03 tablet by ity of tablet 00:00: mouth at [place] 00 bedtime. Medical Branch mirtazapine 2021-0 Yes [id number] 15mg Take 1 Univers (REMERON) 6-03 tablet by ity o f 15 mg 00:00: mouth at [place] tablet 00 bedtime. Medical Branch traZODone 2021-0 Yes [id number] 50mg Take 1 Un kecia 50 mg 6-03 tablet by ity of tablet 00:00: mouth at [place] 00 bedtime. Medical Branch mirtazapine 2021-0 Yes [id number] 15mg Take 1 Univers ([place]ER[place]) 6-03 tablet by ity o f 15 mg 00:00: mouth at [place] tablet 00 bedtime. Medical Branch traZODone 2021-0 Yes [id number] 50mg Take 1 Un kecia 50 mg 6-03 tablet by ity of tablet 00:00: mouth at [place] 00 bedtime. Medical Branch mirtazapine 2021-0 Yes [id number] 15mg Take 1 Univers (REMERON) 6-03 tablet by ity o f 15 mg 00:00: mouth at [place] tablet 00 bedtime. Medical Branch traZODone 2021-0 Yes [id number] 50mg Take 1 Un kecia 50 mg 6-03 tablet by ity of tablet 00:00: mouth at [place] 00 bedtime. Medical Branch mirtazapine 2021-0 Yes [id number] 15mg Take 1 Univers ([place]ER[place]) 6-03 tablet by ity o f 15 mg 00:00: mouth at [place] tablet 00 bedtime. Medical Branch traZODone 2021-0 Yes [id number] 50mg Take 1 Un kecia 50 mg 6-03 tablet by ity of tablet 00:00: mouth at [place] 00 bedtime. Medical Branch amoxicillin 2021-0 Yes 500mg Take 500 U nivers 500 mg 5-24 mg by ity of capsule 00:00: mouth. [place] [facility] amoxicillin 2022-0 Yes 500mg Take 500 U nivers 500 mg 5-24 mg by ity of capsule 00:00: mouth. [place] [facility] amoxicillin 2022-0 Yes 500mg Take 500 U nivers 500 mg 5-24 mg by ity of capsule 00:00: mouth. [place] [facility] amoxicillin 2022-0 Yes 500mg Take 500 U nivers 500 mg 5-24 mg by ity of capsule 00:00: mouth. [place] [facility] amoxicillin 2022-0 Yes 500mg Take 500 U nivers 500 mg 5-24 mg by ity of capsule 00:00: mouth. [place] [facility] amoxicillin 2022-0 Yes 500mg Take 500 U nivers 500 mg 5-24 mg by ity of capsule 00:00: mouth. [place] [facility] amoxicillin 2022-0 Yes 500mg Take 500 U nivers 500 mg 5-24 mg by ity of capsule 00:00: mouth. [place] [facility] amoxicillin 2022-0 Yes 500mg Take 500 U nivers 500 mg 5-24 mg by ity of capsule 00:00: mouth. [place] [facility] amoxicillin 2022-0 Yes 500mg Take 500 U nivers 500 mg 5-24 mg by ity of capsule 00:00: mouth. [place] [facility] amoxicillin 2022-0 Yes 500mg Take 500 U nivers 500 mg 5-24 mg by ity of capsule 00:00: mouth. [place] [facility] amoxicillin 2022-0 Yes 500mg Take 500 U nivers 500 mg 5-24 mg by ity of capsule 00:00: mouth. [place] [address] Medical Branch amoxicillin 2022-0 Yes 500mg Take 500 U nivers 500 mg 5-24 mg by ity of capsule 00:00: mouth. [place] [facility] amoxicillin 2022-0 Yes 500mg Take 500 U nivers 500 mg 5-24 mg by ity of capsule 00:00: mouth. [place] [address] Medical Branch amoxicillin 2022-0 Yes 500mg Take 500 U nivers 500 mg 5-24 mg by ity of capsule 00:00: mouth. [place] [address] Medical Branch amoxicillin 2022-0 Yes 500mg Take 500 U nivers 500 mg 5-24 mg by ity of capsule 00:00: mouth. [address] amoxicillin 2-0 Yes 500mg Take 500 U nivers 500 mg 5-24 mg by ity of capsule 00:00: mouth. [address] amoxicillin 2-0 Yes 500mg Take 500 U nivers 500 mg 5-24 mg by ity of capsule 00:00: mouth. [address] hydrALAZINE 2-0 Yes 50mg Take 50 mg Univers 50 mg 4-08 by mouth. ity of tablet 00:00: [address] hydrALAZINE 2-0 Yes 50mg Take 50 mg Univers 50 mg 4-08 by mouth. ity of tablet 00:00: [address] hydrALAZINE 2-0 Yes 50mg Take 50 mg Univers 50 mg 4-08 by mouth. ity of tablet 00:00: [place] [facility] hydrALAZINE 2021-0 Yes 50mg Take 50 mg Univers 50 mg 4-08 by mouth. ity of tablet 00:00: [address] hydrALAZINE 2-0 Yes 50mg Take 50 mg Univers 50 mg 4-08 by mouth. ity of tablet 00:00: [address] hydrALAZINE 2-0 Yes 50mg Take 50 mg Univers 50 mg 4-08 by mouth. ity of tablet 00:00: [address] hydrALAZINE 2-0 Yes 50mg Take 50 mg Univers 50 mg 4-08 by mouth. ity of tablet 00:00: [address] hydrALAZINE 2-0 Yes 50mg Take 50 mg Univers 50 mg 4-08 by mouth. ity of tablet 00:00: [address] hydrALAZINE 2-0 Yes 50mg Take 50 mg [facility] 50 mg 4-08 by mouth. ity of tablet 00:00: [address] hydrALAZINE 2-0 Yes 50mg Take 50 mg [facility] 50 mg 4-08 by mouth. ity of tablet 00:00: [address] hydrALAZINE 2-0 Yes 50mg Take 50 mg [facility] 50 mg 4-08 by mouth. ity of tablet 00:00: [address] hydrALAZINE 2-0 Yes 50mg Take 50 mg [facility] 50 mg 4-08 by mouth. ity of tablet 00:00: [address] hydrALAZINE 2022-0 Yes 50mg Take 50 mg [facility] 50 mg 4-08 by mouth. ity of tablet 00:00: 00 [facility] hydrALAZINE 2021-0 Yes 50mg Take 50 mg [facility] 50 mg 4-08 by mouth. ity of tablet 00:00: 00 [facility] hydrALAZINE 2021-0 Yes 50mg Take 50 mg [facility] 50 mg 4-08 by mouth. ity of tablet 00:00: 00 [facility] hydrALAZINE 2021-0 Yes 50mg Take 50 mg [facility] 50 mg 4-08 by mouth. ity of tablet 00:00: 00 [facility] hydrALAZINE 0 Yes 50mg Take 50 mg [facility] 50 mg 4-08 by mouth. ity of tablet 00:00: 00 [facility] aspirin 81 2021-0 2021- No [id number] 81mg Take 1 [facility] mg chewable 4-08 tablet by it y of tablet 00:00: 04:59 mouth [place] 00 :00 daily for Medical 90 days. Branch clopidogreL 2021-2021- No [id number] 75mg Take 1 [facility] 75 mg 07-10- tablet by ity of tablet 00:00: 00:00 mouth [place] 00 :00 daily. Medical Branch levETIRAcet 2021-0 2021- No 250mg Take [address] [facility] (KEPPRA) 07-06- [facility] 00:00: 23:59 (250 mg Medical tablet 00 :00 total) by Center mouth 3 (three) times a week after dialysis I for 60 days. levETIRAcet 2021-2021- No 250mg Take [address] [facility] (KEPPRA) 07-06- [facility] 250 MG 00:00: 23:59 (250 mg Medical tablet 00 :00 total) by Center mouth 3 (three) times a week after dialysis I for 60 days. levETIRAcet 2021-0 2021- [...] tablet 35 daily. Center sucroferric Yes 500mg Q.[id number] Take [address] [facility] [address] oxyhydroxid 4-02 [id number] mg by [facility] e 500 mg 14:35: 3D mouth 3 Medica l Chew 35 (three) Center times daily. multivitami Yes 1{tbl} QD Take [address] [facility] with 4-02 tablet by [facility] 14:35: mouth Medical tablet 35 daily. Center sucroferric Yes 500mg Q.88875953 Take [address] oxyhydroxid 4-02 [id number] mg by [facility] 500 mg 14:35: 3D mouth 3 Medica l Chew 35 (three) Center times daily. multivitami Yes 1{tbl} QD Take [address] [facility] with 4-02 tablet by [facility] 14:35: mouth Medical tablet 35 daily. Center sucroferric Yes 500mg Q.[id number] Take [address] oxyhydroxid 4-02 [id number] mg by [facility] 500 mg 14:35: 3D mouth 3 Medica l Chew 35 (three) Center times daily. multivitami Yes 1{tbl} QD Take [address] [facility] with 4-02 tablet by [facility] 14:35: mouth Medical tablet 35 daily. Center sucroferric Yes 500mg Q.[id number] Take [address] oxyhydroxid 4-02 [id number] mg by [facility] 500 mg 14:35: 3D mouth 3 Medica l Chew 35 (three) Center times daily. multivitami Yes 1{tbl} QD Take [address] [facility] with 4-02 tablet by [facility] 14:35: mouth Medical tablet 35 daily. Center sucroferric Yes 500mg Q.10247445 Take [address] oxyhydroxid 4-02 [id number] mg by [facility] 500 mg 14:35: 3D mouth 3 Medica l Chew 35 (three) Center times daily. multivitami Yes 1{tbl} QD Take [address] [facility] with 4-02 tablet by [facility] 14:35: mouth Medical tablet 35 daily. Center sucroferric Yes 500mg Q.[id number] Take [address] oxyhydroxid 4-02 [id number] mg by [facility] 500 mg 14:35: 3D mouth 3 Medica l Chew 35 (three) Center times daily. multivitami Yes 1{tbl} QD Take [address] [facility] with 4-02 tablet by [facility] 14:35: mouth Medical tablet 35 daily. [place] sucroferric Yes 500mg Q.18432408 Take [address] oxyhydroxid 4-02 [id number] mg by [facility] 500 mg 14:35: 3D mouth 3 Medica l Chew 35 (three) Center times daily. multivitami Yes 1{tbl} QD Take [address] [facility] with 4-02 tablet by [facility] 14:35: mouth Medical tablet 35 daily. Center sucroferric Yes 500mg Q.85684422 Take [address] oxyhydroxid 4-02 [id number] mg by [facility] 500 mg 14:35: 3D mouth 3 Medica l Chew 35 (three) Center times daily. multivitami Yes 1{tbl} QD Take [address] [facility] with 4-02 tablet by [facility] 14:35: mouth Medical tablet 35 daily. Center sucroferric Yes 500mg Q.69185341 Take [address] oxyhydroxid 4-02 [id number] mg by [facility] 500 mg 14:35: 3D mouth 3 Medica l Chew 35 (three) Center times daily. multivitami Yes 1{tbl} QD Take [address] [facility] with 4-02 tablet by [facility] 14:35: mouth Medical tablet 35 daily. Center sucroferric Yes 500mg Q.72487936 Take [address] oxyhydroxid 4-02 [id number] mg by [facility] 500 mg 14:35: 3D mouth 3 Medica l Chew 35 (three) Center times daily. multivitami Yes 1{tbl} QD Take [address] [facility] with 4-02 tablet by [facility] 14:35: mouth Medical tablet 35 daily. Center sucroferric Yes 500mg Q.68956409 Take [address] oxyhydroxid 4-02 [id number] mg by [facility] 500 mg 14:35: 3D mouth 3 Medica l Chew 35 (three) Center times daily. multivitami Yes 1{tbl} QD Take [address] [facility] with 4-02 tablet by [facility] 14:35: mouth Medical tablet 35 daily. [place] sucroferric Yes 500mg Q.28906101 Take [address] oxyhydroxid 4-02 [id number] mg by [facility] 500 mg 14:35: 3D mouth 3 Medica l Chew 35 (three) Center times daily. multivitami Yes 1{tbl} QD Take [address] [facility] with 4-02 tablet by [facility] 14:35: mouth Medical tablet 35 daily. Center sucroferric Yes 500mg Q.99629888 Take [address] oxyhydroxid 4-02 [id number] mg by [facility] 500 mg 14:35: 3D mouth 3 Medica l Chew 35 (three) Center times daily. aspirin 81 2021- No 81mg QD Take [address] [facility] [address] MG EC 4-02 04-02 by mouth [facility] tablet 11:07: 00:00 daily. Medical 35 :00 [place] carvediloL 2021- No 12.5mg Take 12.5 [facility] [...] :00 Center tablet hydrALAZINE 2021- No 50mg Q.75529373 Take [address] [facility] (APRESOLINE 07-04 [id number] by mouth 3 [facility] ) 50 MG [...] tablet 11:07: 00:00 daily. Medical 35 :00 [place] carvediloL No 12.5mg Take 12.[address] [...] hr 35 :00 Center tablet hydrALAZINE 50mg Q.70748157 Take [address] [facility] (APRESOLINE 07-04 [id number] by mouth 3 [facility] ) 50 MG [...] 35 :00 Center tablet hydrALAZINE No 50mg Q.[id number] Take [address] [facility] (APRESOLINE 07-04 [id number] by mouth 3 [facility] ) 50 MG [...] tablet 11:07: 00:00 daily. Medical 35 :00 [place] carvediloL 2021- No 12.5mg Take 12.5 [facility] [...] 35 :00 Center tablet hydrALAZINE No 50mg Q.08909135 Take [address] [facility] (APRESOLINE 07-04 [id number] by mouth 3 [facility] ) 50 MG [...] 35 :00 Center tablet hydrALAZINE No 50mg Q.74208713 Take [address] [facility] (APRESOLINE 07-04 [id number] by mouth 3 [facility] ) 50 MG [...] tablet 11:07: 00:00 daily. Medical 35 :00 [place] carvediloL No 12.5mg Take 12.[address] [...] :00 Center tablet hydrALAZINE 2021- No 50mg Q.70599533 Take [address] [facility] (APRESOLINE 07-04 [id number] by mouth 3 [facility] ) 50 MG [...] tablet 11:07: 00:00 daily. Medical 35 :00 [place] carvediloL No 12.5mg Take 12.[address] [...] :00 Center tablet hydrALAZINE 2021- No 50mg Q.07529763 Take [address] [facility] (APRESOLINE 07-04 [id number] by mouth 3 [facility] ) 50 MG [...] tablet 11:07: 00:00 daily. Medical 35 :00 [place] carvediloL 2021- No 12.5mg Take 12.5 [facility] [...] hr 35 :00 Center tablet hydrALAZINE 50mg Q.77884114 Take [address] [facility] (APRESOLINE 07-04 [id number] by mouth 3 [facility] ) 50 MG [...] 00:00 daily. Medical 35 :00 Center carvediloL 12.5mg Take 12.[address] [facility] [address] (COREG) 07-04 [...] 35 :00 Center tablet hydrALAZINE No 50mg Q.95127215 Take [address] [facility] (APRESOLINE 07-04 [id number] by mouth 3 [facility] ) 50 MG [...] :00 Center tablet hydrALAZINE 2021- No 50mg Q.64144105 Take [address] [facility] (APRESOLINE 07-04 [id number] by mouth 3 [facility] ) 50 MG [...] :00 Center tablet hydrALAZINE 2021- No 50mg Q.25024055 Take [address] [facility] (APRESOLINE 07-04 [id number] by mouth 3 [facility] ) 50 MG 11:07: 00:00 3D (three) Medica l tablet 35 :00 times Center daily. lisinopriL 2022-0 2022- No 5mg QD Take 5 mg C [...] mouth Center nightly for 60 days. carvediloL 0 2021- No 12.5mg Q.5D Take 1 CH [...] :00 Center R) 100 unit/mL injection insulin 202- No Use as [facility] regular 07-0402 [...] hr 59 Center tablet hydrALAZINE Yes 50mg Q.86259542 Take [address] [facility] (APRESOLINE - [id number] by mouth 3 [facility] ) 50 MG [...] MG tablet 59 Center sucroferric Yes 500mg Q.39242342 Take [address] oxyhydroxid 4- [id number] mg by [facility] 500 mg [...] hr 15 Center tablet hydrALAZINE Yes 50mg Q.10134116 Take [address] [facility] (APRESOLINE 3-30 [id number] by mouth 3 [facility] ) 50 MG [...] MG tablet 15 Center sucroferric Yes 500mg Q.75917802 Take [address] oxyhydroxid 3-30 [id number] mg by [facility] 500 mg [...] 15 Center tablet hydrALAZINE 0 Yes 50mg Q.85507964 Take [address] [facility] (APRESOLINE 3-30 [id number] by mouth 3 [facility] ) 50 MG [...] MG tablet 15 Center sucroferric Yes 500mg Q.93230674 Take [address] oxyhydroxid 3-30 [id number] mg by [facility] 500 mg [...] 18 Center tablet hydrALAZINE 0 Yes 50mg Q.00959404 Take [address] [facility] (APRESOLINE 3-30 [id number] by mouth 3 [facility] ) 50 MG 08:40: 3D (three) Medical tablet 18 times Center daily. multivitami 0 Yes 1{tbl} QD Take [address] [facility] with 3-30 tablet by [facility] 08:40: mouth Medical tablet 18 daily. Center lisinopriL 2022-0 Yes 5mg QD Take [address] (PRINIVIL,Z 3-30 by mouth [facility] ESTRIL) 5 08:40: daily. Medica l MG tablet 18 [place] sucroferric Yes 500mg Q.31594304 Take [address] oxyhydroxid 3-30 [id number] mg by [facility] 500 mg 08:40: 3D mouth 3 Medica l Chew 18 (three) Center times daily. atorvastati Yes 40mg QD Take [address] [facility] n (LIPITOR) 3-28 by mouth Luke s 40 MG 14:25: daily. Medical tablet 01 [place] isosorbide Yes 30mg QD Take [address] mononitrate 3-28 by mouth Luke s (IMDUR) 30 14:25: daily. Medic al MG 24 hr 01 Center tablet clopidogreL Yes 75mg QD Take [address] [facility] (PLAVIX) 75 3-28 by mouth Luke s mg tablet 14:25: daily. Medica l 01 [place] NIFEdipine Yes 60mg QD Take [address] (PROCARDIA- 3-28 by mouth Luke s XL) 60 MG 14:25: daily. Medica l (OSM) 24 hr Center tablet hydrALAZINE Yes 50mg Q.06868119 Take [address] [facility] (APRESOLINE 3-28 [id number] by mouth 3 [facility] ) 50 MG 14:25: 3D (three) Medical tablet 01 times Center daily. multivitami Yes 1{tbl} QD Take [address] [facility] with 3-28 tablet by [facility] 14:25: mouth Medical tablet 01 daily. [place] lisinopriL Yes 5mg QD Take [address] (PRINIVIL,Z 3-28 by mouth Luke s ESTRIL) 5 14:25: daily. Medica l MG tablet 01 Center sucroferric Yes 500mg Q.94375846 Take [address] oxyhydroxid 3-28 [id number] mg by [facility] 500 mg [...] hr 22 Center tablet hydrALAZINE Yes 50mg Q.89129453 Take [address] [facility] (APRESOLINE 06-29 [id number] by mouth 3 [facility] ) 50 MG 09:34: 3D (three) Medical tablet 22 times Center daily. multivitami Yes 1{tbl} QD Take [address] [facility] with 06-29 tablet by [facility] 09:34: mouth Medical tablet 22 daily. [place] lisinopriL Yes 5mg QD Take [address] (PRINIVIL,Z - by mouth Luke s ESTRIL) 5 09:34: daily. Medica l MG tablet 22 [place] sucroferric Yes 500mg Q.78740903 Take [address] oxyhydroxid 06-29 [id number] mg by L [facility] e 500 mg [...] 49 Center tablet hydrALAZINE 2021-0 Yes 50mg Q.10816095 Take [address] [facility] (APRESOLINE 3-25 [id number] by mouth 3 [facility] ) 50 MG [...] tablet 49 Center sucroferric 0 Yes 500mg Q.30364551 Take [address] oxyhydroxid 3-25 [id number] mg by L [facility] 500 mg [...] 15 Center tablet hydrALAZINE 2021-0 Yes 50mg Q.66474935 Take [address] [facility] (APRESOLINE 3-20 [id number] by mouth 3 [facility] ) 50 MG [...] tablet 15 Center sucroferric 0 Yes 500mg Q.98085625 Take [address] oxyhydroxid 3-20 [id number] mg by L [facility] 500 mg [...] 15 Center tablet hydrALAZINE 0 Yes 50mg Q.[id number] Take [address] [facility] (APRESOLINE 3-20 [id number] by mouth 3 [facility] ) 50 MG 18:09: 3D (three) Medical tablet 15 times Center daily. multivitami 0 Yes 1{tbl} QD Take [address] [facility] with 3-20 tablet by [facility] 18:09: mouth Medical tablet 15 daily. [place] lisinopriL 0 Yes 5mg QD Take [address] (PRINIVIL,Z 3-20 by mouth Luke s ESTRIL) 5 18:09: daily. Medica l MG tablet 15 Center sucroferric 0 Yes 500mg Q.39269066 Take [address] oxyhydroxid 3-20 [id number] mg by L [facility] 500 mg 18:09: 3D mouth 3 Medica l Chew 15 (three) Center times daily. atorvastati 0 Yes 40mg QD Take [address] [facility] (LIPITOR) 3-20 by mouth Luke s 40 MG 18:09: daily. Medical tablet [address] [place] [address] aspirin 81 0 Yes 81mg QD Take [address] MG EC 3-07 by mouth [facility] tablet 04:45: daily. [address] carvediloL 0 Yes 12.5mg Take 12.[address] (COREG) 3-07 mg by [facility] 12.5 MG 04:45: mouth 2 Medical tablet 04 (two) Center times daily with breakfast and dinner. aspirin 81 2021-0 Yes 81mg QD Take [address] MG EC 3-07 by mouth [facility] tablet 04:45: daily. [address] carvediloL 0 Yes 12.5mg Take 12.[address] (COREG) 3-07 mg by [facility] 12.5 MG 04:45: mouth 2 Medical tablet 04 (two) Center times daily with breakfast and dinner. aspirin 81 0 Yes 81mg QD Take [address] MG EC 3-07 by mouth [facility] tablet 04:45: daily. [address] carvediloL 0 Yes 12.5mg Take 12.[address] (COREG) 3-07 mg by [facility] 12.5 MG 04:45: mouth 2 Medical tablet 04 (two) Center times daily with breakfast and dinner. aspirin 81 2021-0 Yes 81mg QD Take [address] MG EC 3-07 by mouth [facility] tablet 04:45: daily. [address] carvediloL Yes 12.5mg Take 12.[address] [address] (COREG) 3-07 mg by [facility] 12.5 MG 04:45: mouth 2 Medical tablet 04 (two) Center times daily with breakfast and dinner. aspirin 81 2021-0 Yes 81mg QD Take [address] MG EC 3-07 by mouth [facility] tablet 04:45: daily. [address] carvediloL 0 Yes 12.5mg Take 12.[address] [address] (COREG) 3-07 mg by [facility] 12.5 MG 04:45: mouth 2 Medical tablet 04 (two) Center times daily with breakfast and dinner. aspirin 81 2021-0 Yes 81mg QD Take [address] MG EC 3-07 by mouth [facility] tablet 04:45: daily. [address] carvediloL 0 Yes 12.5mg Take 12.[address] [address] (COREG) 3-07 mg by [facility] 12.5 MG 04:45: mouth 2 Medical tablet 04 (two) Center times daily with breakfast and dinner. aspirin 81 2021-0 Yes 81mg QD Take [address] MG EC 3-07 by mouth [facility] tablet 04:45: daily. [address] carvediloL Yes 12.5mg Take 12.[address] (COREG) 3-07 mg by [facility] 12.5 MG 04:45: mouth 2 Medical tablet 04 (two) Center times daily with breakfast and dinner. aspirin 81 2021-0 Yes 81mg QD Take [address] MG EC 3-07 by mouth [facility] tablet 04:45: daily. [address] carvediloL Yes 12.5mg Take 12.[address] (COREG) 3-07 mg by [facility] 12.5 MG 04:45: mouth 2 Medical tablet 04 (two) Center times daily with breakfast and dinner. aspirin 81 2021-0 Yes 81mg QD Take [address] MG EC 3-07 by mouth [facility] tablet 04:45: daily. [address] carvediloL Yes 12.5mg Take 12.[address] [address] (COREG) 3-07 mg by [facility] 12.5 MG 04:45: mouth 2 Medical tablet 04 (two) Center times daily with breakfast and dinner. aspirin 81 2021- No [id number] 81mg Take 1 [facility] mg chewable 05-23 tablet by it y of tablet 00:00: 04:59 mouth [place] 00 :00 daily for Medical 30 days. [place] clopidogreL 2021- No [id number] 75mg Take 1 [facility] 75 mg 05-23 tablet by ity of tablet 00:00: 04:59 mouth [place] 00 :00 daily for Medical 30 days. [place] isosorbide 2021- No [id number] 30mg Take 1 [facility] mononitrate 05-23 tablet by it y of 30 mg 24 hr 00:00: 04:59 mouth [place] tablet 00 :00 daily for Medical 30 days. [place] lisinopriL 2021- No [id number] 5mg Take 1 [facility] 5 mg tablet 05-23 tablet by it y of 00:00: 04:59 mouth [place] 00 :00 daily for Medical 30 days. Branch vitamin b 2021- No [id number] 1{tbl} Take 1 [facility] complex-vit 05-23 tablet by it y of [place] 00:00: 04:59 mouth [place] c-folic 00 :00 daily for Medical acid 0.8 mg 30 days. Bran ch tablet aspirin 81 2021- No [id number] 81mg Take 1 [facility] mg chewable 05-23 tablet by it y of tablet 00:00: 04:59 mouth [place] 00 :00 daily for Medical 30 days. Branch clopidogreL 2021- No [id number] 75mg Take 1 [facility] 75 mg 05-23 tablet by ity of tablet 00:00: 04:59 mouth [place] 00 :00 daily for Medical 30 days. Branch isosorbide 2021- No [id number] 30mg Take 1 [facility] mononitrate 05-23 tablet by it y of 30 mg 24 hr 00:00: 04:59 mouth [place] tablet 00 :00 daily for Medical 30 days. Branch lisinopriL 2021- No [id number] 5mg Take 1 [facility] 5 mg tablet 05-23 tablet by it y of 00:00: 04:59 mouth [place] 00 :00 daily for Medical 30 days. Branch vitamin b 2021- No [id number] 1{tbl} Take 1 [facility] complex-vit 05-23 tablet by it y of [place] 00:00: 04:59 mouth [place] c-folic 00 :00 daily for Medical acid 0.8 mg 30 days. Bran ch tablet aspirin 81 2021- No [id number] 81mg Take 1 [facility] mg chewable 05-23 tablet by it y of tablet 00:00: 04:59 mouth [place] 00 :00 daily for Medical 30 days. Branch clopidogreL 2021- No [id number] 75mg Take 1 [facility] 75 mg 05-23 tablet by ity of tablet 00:00: 04:59 mouth [place] 00 :00 daily for Medical 30 days. Branch isosorbide 2021- No [id number] 30mg Take 1 [facility] mononitrate 05-23 tablet by it y of 30 mg 24 hr 00:00: 04:59 mouth [place] tablet 00 :00 daily for Medical 30 days. Branch lisinopriL 2021- No [id number] 5mg Take 1 [facility] 5 mg tablet 05-23 tablet by it y of 00:00: 04:59 mouth [place] 00 :00 daily for Medical 30 days. Branch vitamin b 2021- No [id number] 1{tbl} Take 1 [facility] complex-vit 05-23 tablet [...] NIFEDIPINE No Take by Uni vers ORAL 2-18 02-18 mouth. ity of 17:12: 00:00 [place] 42 :00 Medical Branch aspirin 81 2021- No 81mg Take 81 mg [facility] mg chewable 05-2218 by mouth ity of tablet 17:12: 00:00 daily. [place] 42 :00 Medical Branch nitroglycer Yes [id number] .4mg Place 1 [facility] in 0.4 mg 2-18 tablet ity of sublingual 00:00: under the [place] tablet 00 tongue Medical every 5 Branch (five) minutes as needed for Chest pain. nitroglycer Yes [id number] .4mg Place 1 [facility] in 0.4 mg 2-18 tablet ity of sublingual 00:00: under the [place] tablet 00 tongue Medical every 5 Branch (five) minutes as needed for Chest pain. nitroglycer Yes [id number] .4mg Place 1 [facility] in 0.4 mg 2-18 tablet ity of sublingual 00:00: under the [place] tablet 00 tongue Medical every 5 Branch (five) minutes as needed for Chest pain. atorvastati 2021- No [id number] 40mg Take 1 [facility] n 40 mg 2-18 -21 tablet by ity of tablet 00:00: 04:59 mouth at [place] 00 :00 bedtime Medical for 30 Branch days. carvediloL 2021- No [id number] 6.25mg Take 1 [facility] 6.25 mg 2-18 -21 tablet by ity of tablet 00:00: 04:59 mouth 2 [place] 00 :00 (two) Medical times Branch daily with meals for 30 days. NIFEdipine 2021- No [id number] 60mg Take 1 [facility] ER 60 mg 2-18 -21 tablet by ity o f tablet 00:00: 04:59 mouth 2 [place] 00 :00 (two) Medical times Branch daily for 30 days. atorvastati 2021- No [id number] 40mg Take 1 [facility] n 40 mg 2-18 03-21 tablet by ity of tablet 00:00: 04:59 mouth at [place] 00 :00 bedtime Medical for 30 Branch days. carvediloL 2021- No [id number] 6.25mg Take 1 [facility] 6.25 mg 2-18 03-21 tablet by ity of tablet 00:00: 04:59 mouth 2 [place] 00 :00 (two) Medical times Branch daily with meals for 30 days. NIFEdipine 2021- No [id number] 60mg Take 1 [facility] ER 60 mg 2-18 03-21 tablet by ity o f tablet 00:00: 04:59 mouth 2 [place] 00 :00 (two) Medical times Branch daily for 30 days. atorvastati 2021- No [id number] 40mg Take 1 [facility] n 40 mg 05-22 tablet by ity of tablet 00:00: 04:59 mouth at [place] 00 :00 bedtime Medical for 30 Branch days. carvediloL 2021- No [id number] 6.25mg Take 1 [facility] 6.25 mg 05-22 tablet by ity of tablet 00:00: 04:59 mouth 2 [place] 00 :00 (two) Medical times Branch daily with meals for 30 days. NIFEdipine 2021- No [id number] 60mg Take 1 [facility] ER 60 mg 05-22 tablet by ity o f tablet 00:00: 04:59 mouth 2 [place] 00 :00 (two) Medical times [place] daily for 30 days. clopidogreL Yes 75mg 75 mg, Univ ers (PLAVIX) 2-17 Oral, ity of tablet 75 15:00: DAILY, [place] mg 00 First dose Medical (after Branch last modificati on) on [place] 05/21/21 at 0900, Until Discontinu ed, Routine morpHINE 2021- No 2mg 2 mg, Slow Un [facility] injection 2 05-2117 IV Push, ity of mg 13:30: 12:29 [...] First dose Medi yoel 30 mg on Wed Branch 05/20/21 at 0900, Until Discontinu ed, Routine vitamin b Yes [id number] 1{tbl} 1 tablet, [facility] complex-vit 2-16 Oral, [...] 00 :38 First dose Medical on Tue [place] 05/20/21 at 0900, Until Discontinu ed, Routine atorvastati 2021-0 Yes [id number] 40mg 40 mg, Univers n (LIPITOR) 2-16 Oral, QHS, it y of tablet 40 03:00: First dose [place] mg 00 on [facility] 05/19/21 at Branch 2100, Until Discontinu ed, Routine NIFEdipine 0 Yes [id number] 60mg 60 mg, U nivers ER tablet 2-16 Oral, BID, ity of 60 mg 02:00: First dose [place] 00 (after Medical last Branch modificati on) on [facility] 05/19/21 at 2000, Until Discontinu ed, Routine lisinopriL 0 Yes [id number] 5mg 5 mg, [facility] (PRINIVIL,Z 2-15 Oral, ity of ESTRIL) 20:45: DAILY, [place] tablet 5 mg 00 First dose Me dical on [facility] 05/19/21 at 1445, Until Discontinu ed, Routine traMADoL 0 Yes 50mg 50 mg, Univers (ULTRAM) 2-12 Oral, ity of tablet 50 21:59: Q6HPRN, [place] mg 37 Starting Medical on [facility] 05/16/21 at 1559, Until Discontinu ed, Routine, Pain (scale 4-6) aspirin 0 Yes 81mg 81 mg, [facility] chewable 2-12 Oral, ity of tablet 81 15:00: DAILY, [place] mg 00 First dose Medical on [facility] 05/16/21 at 0900, Until Discontinu ed, Routine NIFEdipine 0 2021- No 60mg 60 mg, Univ ers ER tablet 212 02-15 Oral, ity of 60 mg 15:00: [...] Starting Medical injection 1 on Fri Branch 05/15/21 at 2330, Until [...] 05/15/21 at 1900, Until Discontinu ed, Routine
administrative appeals tribunal member approving Restricted medication : NEIL THOMAS [...] Until Discontinu ed, Routine, Chest pain ondansetron Yes 4mg 4 mg, Slow Univers (ZOFRAN [...] Fri Branch 05/15/21 at 1730, STAT iopamidol 2021-0 202- No [id number] 100mL 100 mL, Univers (ISOVUE 05-15 Intravenou ity o f 370-500 mL) 22:00: 22:00 s, ONCE, 1 [place] injection 00 :00 dose, On Medica l 100 mL Fri Branch 05/15/21 at 1600, Routine aspirin 81 Yes 81mg QD Take [address] MG EC 5-27 by mouth [facility] tablet 15:07: daily. [address] carvediloL Yes 12.5mg Take 12.[address] [facility] [address] (COREG) 5-27 mg by [facility] 12.5 MG 15:07: mouth 2 Medical tablet 20 (two) Center times daily with breakfast and dinner. aspirin 81 Yes 81mg QD Take [address] MG EC 5-27 by mouth [facility] tablet 15:07: daily. [address] carvediloL Yes 12.5mg Take 12.5 [facility] [...] a e 1-17 l 19:15: ergocalcife Yes [id number] Q7D Take Meth ale rol 7-25 50,000 [...] hr 42 l tablet ergocalcife 2019-0 Yes [id number] Q7D Take Meth ale rol 7-25 50,000 [...] hr 42 l tablet ergocalcife 2019-0 Yes [id number] Q7D Take Meth ale rol 7-25 50,000 [...] hr 42 l tablet ergocalcife 2019-0 Yes [id number] Q7D Take Meth ale rol 7-25 50,000 [...] hr 42 l tablet ergocalcife 2019-0 Yes [id number] Q7D Take Meth ale rol 7-25 50,000 st (VITAMIN 15:19: Units by Hospi ta D2) 50,000 42 mouth once l unit a week. capsule multivitami 2019-0 Yes 1{tbl} QD Take 1 Me thodi n 7-[address] (DAILY-LARON 15:19: mouth Hospi ta ORAL) 42 daily. l ergocalcife 2019-0 Yes [id number] Q7D Take Meth ale rol 7-25 50,000 [...] Hospita tablet 42 l ergocalcife 2019-0 Yes [id number] Q7D Take Meth ale rol 7-25 50,000 [...] hr 42 l tablet ergocalcife 2019-0 Yes [id number] Q7D Take Meth ale rol 7-25 50,000 [...] hr 42 l tablet ergocalcife 2019-0 Yes [id number] Q7D Take Meth ale rol 7-25 50,000 [...] hr 42 l tablet ergocalcife 2019-0 Yes [id number] Q7D Take Meth ale rol 7-25 50,000 [...] hr 42 l tablet ergocalcife 2019-0 Yes [id number] Q7D Take Meth ale rol 7-25 50,000 [...] hr 42 l tablet ergocalcife 2019-0 Yes [id number] Q7D Take Meth ale rol 7-25 50,000 [...] hr 42 l tablet ergocalcife 2019-0 Yes [id number] Q7D Take Meth ale rol 7-25 50,000 [...] hr 42 l tablet ergocalcife 2019-0 Yes [id number] Q7D Take Meth ale rol 7-25 50,000 [...] hr 42 l tablet ergocalcife 2019-0 Yes [id number] Q7D Take Meth ale rol 7-25 50,000 [...] hr 42 l tablet ergocalcife 2019-0 Yes [id number] Q7D Take Meth ale rol 7-25 50,000 st (VITAMIN 15:19: Units by Hospi ta D2) 50,000 42 mouth once l unit a week. capsule ergocalcife 2019-0 Yes [id number] Q7D Take Meth ale rol 7-25 50,000 [...] Hospita tablet 42 l ergocalcife 2019-0 Yes [id number] Q7D Take Meth ale rol 7-25 50,000 [...] hr 42 l tablet ergocalcife 2019-0 Yes [id number] Q7D Take Meth ale rol 7-25 50,000 [...] hr 42 l tablet ergocalcife 2019-0 Yes [id number] Q7D Take Meth ale rol 7-25 50,000 [...] hr 42 l tablet ergocalcife 2019-0 Yes [id number] Q7D Take Meth ale rol 7-25 50,000 [...] hr 42 l tablet ergocalcife 2019-0 Yes [id number] Q7D Take Meth ale rol 7-25 50,000 [...] hr 42 l tablet ergocalcife 2019-0 Yes [id number] Q7D Take Meth ale rol 7-25 50,000 [...] hr 42 l tablet ergocalcife 2019-0 Yes [id number] Q7D Take Meth ale rol 7-25 50,000 [...] hr 42 l tablet ergocalcife 2019-0 Yes [id number] Q7D Take Meth ale rol 7-25 50,000 [...] hr 42 l tablet ergocalcife 2018-0 Yes [id number] Q7D Take Meth ale rol 7-25 50,000 [...] MG 24 hr 42 l tablet metoprolol 2019-0 Yes TK 1 [...] DAILY Dickson kulwinder 7-10 Paul l 00:00: [place] 00 Aspirin 2019-0 Yes Salman DAILY Memoria 7-10 Paul l 00:00: [place] 00 Furosemide 2019-0 Yes [place] TWICE Dickson kulwinder 7-10 Paul DAILY AT l 00:00: 9am & 5pm [place] 00 aspirin 2019-0 Yes Methodi (ECOTRIN) 7-10 st [...] tablet furosemide 2018-0 Yes Take by Meth lae (LASIX) 40 7-[address] mg tablet [...] Memori a n Calcium 7-09 l 10:23: [place] 00 Lisinopril 2018-0 Yes Memoria 7-09 l 10:23: [place] 00 Doxazosin 2018-0 Yes TWICE Memoria 7-09 DAILY l 00:00: [place] 00 Folic 2018-0 Yes DAILY [place] Acid/Vit B [...] Dose 2021-02-02 Completed Unive rsity of 00:00:00 [facility] Influenza High Dose 2021-02-02 Completed Unive rsity of 00:00:00 [facility] Influenza High Dose 2021-02-02 Completed Unive rsity of 00:00:00 [facility] Influenza High Dose 2021-02-02 Completed Unive rsity of 00:00:00 [facility] Influenza High Dose 2021-02-02 Completed Unive rsity of 00:00:00 [facility] Influenza High Dose 2021-02-02 Completed Unive rsity of 00:00:00 [facility] Influenza High Dose 2021-02-02 Completed [...] Dose 2021-02-02 Completed Unive rsity of 00:00:00 [facility] Influenza High Dose 2021-02-02 Completed Unive rsity of 00:00:00 [facility] Influenza High Dose 2021-02-02 Completed Unive rsity of 00:00:00 [facility] Influenza High Dose 2021-02-02 Completed Unive rsity of 00:00:00 [facility] Influenza High Dose 2021-02-02 Completed Unive rsity of 00:00:00 [facility] Influenza High Dose 2021-02-02 Completed Unive rsity of 00:00:00 [facility] SARS-COV-2 COVID-19 2020-07-30 Completed Unive rsity of PFIZER VACCINE 00:00:00 [facility] SARS-COV-2 COVID-19 2020-07-30 Completed Unive rsity of PFIZER VACCINE 00:00:00 [facility] SARS-COV-2 COVID-19 2020-07-30 Completed Unive rsity of PFIZER VACCINE 00:00:00 [facility] SARS-COV-2 COVID-19 2020-07-30 Completed Unive rsity of PFIZER VACCINE 00:00:00 [facility] SARS-COV-2 COVID-19 2020-07-30 Completed Unive rsity of PFIZER VACCINE 00:00:00 [facility] SARS-COV-2 COVID-19 2020-07-30 Completed Unive rsity of PFIZER VACCINE 00:00:00 [facility] SARS-COV-2 COVID-19 2020-07-30 Completed Unive rsity of PFIZER VACCINE 00:00:00 [facility] SARS-COV-2 COVID-19 2020-07-30 Completed Unive rsity of PFIZER VACCINE 00:00:00 [facility] SARS-COV-2 COVID-19 2020-07-30 Completed Unive rsity of PFIZER VACCINE 00:00:00 [facility] SARS-COV-2 COVID-19 2020-07-30 Completed Unive rsity of PFIZER VACCINE 00:00:00 [facility] SARS-COV-2 COVID-19 2020-07-30 Completed Unive rsity of PFIZER VACCINE 00:00:00 [facility] SARS-COV-2 COVID-19 2020-07-30 Completed Unive rsity of PFIZER VACCINE 00:00:00 [facility] SARS-COV-2 COVID-19 2020-07-30 Completed Unive rsity of PFIZER VACCINE 00:00:00 [facility] SARS-COV-2 COVID-19 2020-07-30 Completed Unive rsity of PFIZER VACCINE 00:00:00 [facility] SARS-COV-2 COVID-19 2020-07-30 Completed Unive rsity of PFIZER VACCINE 00:00:00 [facility] SARS-COV-2 COVID-19 2020-07-30 Completed Unive rsity of PFIZER VACCINE 00:00:00 [facility] SARS-COV-2 COVID-19 2020-07-30 Completed Unive rsity of PFIZER VACCINE 00:00:00 [facility] SARS-COV-2 COVID-19 2020-07-11 Completed Unive rsity of PFIZER VACCINE 00:00:00 [facility] SARS-COV-2 COVID-19 2020-07-11 Completed Unive rsity of PFIZER VACCINE 00:00:00 [facility] SARS-COV-2 COVID-19 2020-07-11 Completed Unive rsity of PFIZER VACCINE 00:00:00 [facility] SARS-COV-2 COVID-19 2020-07-11 Completed Unive rsity of PFIZER VACCINE 00:00:00 [facility] SARS-COV-2 COVID-19 2020-07-11 Completed Unive rsity of PFIZER VACCINE 00:00:00 [facility] SARS-COV-2 COVID-19 2020-07-11 Completed Unive rsity of PFIZER VACCINE 00:00:00 [facility] SARS-COV-2 COVID-19 2020-07-11 Completed Unive rsity of PFIZER VACCINE 00:00:00 [facility] SARS-COV-2 COVID-19 2020-07-11 Completed Unive rsity of PFIZER VACCINE 00:00:00 [facility] SARS-COV-2 COVID-19 2020-07-11 Completed Unive rsity of PFIZER VACCINE 00:00:00 [facility] SARS-COV-2 COVID-19 2020-07-11 Completed Unive rsity of PFIZER VACCINE 00:00:00 [facility] SARS-COV-2 COVID-19 2020-07-11 Completed Unive rsity of PFIZER VACCINE 00:00:00 [facility] SARS-COV-2 COVID-19 2020-07-11 Completed Unive rsity of PFIZER VACCINE 00:00:00 [facility] SARS-COV-2 COVID-19 2020-07-11 Completed Unive rsity of PFIZER VACCINE 00:00:00 [facility] SARS-COV-2 COVID-19 2020-07-11 Completed Unive rsity of PFIZER VACCINE 00:00:00 [facility] SARS-COV-2 COVID-19 2020-07-11 Completed Unive rsity of PFIZER VACCINE 00:00:00 [facility] SARS-COV-2 COVID-19 2020-07-11 Completed Unive rsity of PFIZER VACCINE 00:00:00 [facility] SARS-COV-2 COVID-19 2020-07-11 Completed Unive rsity of PFIZER VACCINE 00:00:00 [facility] PPD (TB) 2018-03-20 Completed University of 00:00:00 [facility] PPD (TB) 2018-03-20 Completed University of 00:00:00 [facility] PPD (TB) 2018-03-20 Completed University of 00:00:00 [facility] PPD (TB) 2018-03-20 Completed University of 00:00:00 [facility] PPD (TB) 2018-03-20 Completed University of 00:00:00 [facility] PPD (TB) 2018-03-20 Completed University of 00:00:00 [facility] PPD (TB) 2018-03-20 Completed University of 00:00:00 [facility] PPD (TB) 2018-03-20 Completed University of 00:00:00 [facility] PPD (TB) 2018-03-20 Completed University of 00:00:00 [facility] PPD (TB) 2018-03-20 Completed University of 00:00:00 [facility] PPD (TB) 2018-03-20 Completed University of 00:00:00 [facility] PPD (TB) 2018-03-20 Completed University of 00:00:00 [facility] PPD (TB) 2018-03-20 Completed University of 00:00:00 [facility] PPD (TB) 2018-03-20 Completed University of 00:00:00 [facility] PPD (TB) 2018-03-20 Completed University of 00:00:00 [facility] PPD (TB) 2018-03-20 Completed University of 00:00:00 [facility] PPD (TB) 2018-03-20 Completed University of 00:00:00 [facility] Influenza Virus 2018-01-20 Completed Universit y of Vaccine - Whole 00:00:00 [facility] Influenza Virus 2018-01-20 Completed Universit y of Vaccine - Whole 00:00:00 [facility] Influenza Virus 2018-01-20 Completed Universit y of Vaccine - Whole 00:00:00 [facility] Influenza Virus 2018-01-20 Completed Universit y of Vaccine - Whole 00:00:00 [facility] Influenza Virus 2018-01-20 Completed Universit y of Vaccine - Whole 00:00:00 [facility] Influenza Virus 2018-01-20 Completed Universit y of Vaccine - Whole 00:00:00 [facility] Influenza Virus 2018-01-20 Completed Universit y of Vaccine - Whole 00:00:00 [facility] Influenza Virus 2018-01-20 Completed Universit y of Vaccine - Whole 00:00:00 [facility] Influenza Virus 2018-01-20 Completed Universit y of Vaccine - Whole 00:00:00 [facility] Influenza Virus 2018-01-20 Completed Universit y of Vaccine - Whole 00:00:00 [facility] Influenza Virus 2018-01-20 Completed Universit y of Vaccine - Whole 00:00:00 [facility] Influenza Virus 2018-01-20 Completed Universit y of Vaccine - Whole 00:00:00 [facility] Influenza Virus 2018-01-20 Completed Universit y of Vaccine - Whole 00:00:00 [facility] Influenza Virus 2018-01-20 Completed Universit y of Vaccine - Whole 00:00:00 [facility] Influenza Virus 2018-01-20 Completed Universit y of Vaccine - Whole 00:00:00 [facility] Influenza Virus 2018-01-20 Completed Universit y of Vaccine - Whole 00:00:00 [facility] Influenza Virus 2018-01-20 Completed Universit y of Vaccine - Whole 00:00:00 [facility] Pneumococcal 2014-08-02 Completed University o f Polysaccharide, 00:00:00 [place] [facility] PPSV23 (PNEUMOVAX) [facility] Pneumococcal 2014-08-02 Completed University o f Polysaccharide, 00:00:00 [place] [facility] PPSV23 (PNEUMOVAX) [facility] Pneumococcal 2014-08-02 [...] ical PPSV23 (PNEUMOVAX) Branch Pneumococcal 2014-08-02 Completed [place] [facility] Polysaccharide, 00:00:00 [place] [facility] PPSV23 (PNEUMOVAX) [facility] Pneumococcal 2014-08-02 Completed [place] [facility] Polysaccharide, 00:00:00 [place] [facility] PPSV23 (PNEUMOVAX) [facility] Vital Signs Vital Name Observation Time Observation Value Comments Source Systolic blood 2021-09-29 20:09:00 139 mm[Hg] Univer [facility]ity of [facility] Diastolic blood 2021-09-29 20:09:00 61 mm[Hg] Unive rsity of [facility] Heart rate 2021-09-29 20:09:00 73 /min [facility] Body temperature 2021-09-29 20:09:00 36.5 Priya [facility] Respiratory rate 2021-09-29 20:09:00 16 /min [facility] Body height 2021-09-29 20:09:00 160 cm [facility] Body weight 2021-09-29 20:09:00 61.326 kg [facility] BMI 2021-09-29 20:09:00 23.95 kg/m2 [facility] Oxygen saturation in 2021-09-29 20:09:00 93 /min [facility] Arterial blood by [facility] Pulse oximetry Branch Systolic blood 2021-09-29 20:09:00 139 mm[Hg] Univer sity of [facility] Diastolic blood 2021-09-29 20:09:00 61 mm[Hg] Unive rsity of [facility] Heart rate 2021-09-29 20:09:00 73 /min [facility] Body temperature 2021-09-29 20:09:00 36.5 Priya [facility] Respiratory rate 2021-09-29 20:09:00 16 /min [facility] Body height 2021-09-29 20:09:00 160 cm Universi [facility] Body weight 2021-09-29 20:09:00 61.326 kg Universi [facility] BMI 2021-09-29 20:09:00 23.95 kg/m2 [facility] Oxygen saturation in 2021-09-29 20:09:00 93 /min University of Arterial blood by [facility] Pulse oximetry Branch WEIGHT 2021-07-03 13:00:00 60.4 [...] 2021-05-23 01:40:00 126 mm[Hg] Univer sity of [facility] Diastolic blood 2021-05-23 01:40:00 46 mm[Hg] Unive rsity [facility] Heart rate 2021-05-23 01:40:00 62 /min Universi ty [facility] Body temperature 2021-05-23 01:40:00 35.67 Priya [facility] Res[facility] rate 2021-05-23 01:40:00 16 /min [facility] Body weight 2021-05-23 01:40:00 67.3 kg Universi [facility] BMI 2021-05-23 01:40:00 26.28 kg/m2 [facility] Oxygen saturation in 2021-05-22 17:16:00 93 /min [facility] Arterial blood by [facility] Pulse oximetry Branch Body height 2021-05-19 19:34:00 160 cm [facility] Systolic blood 2021-07-04 08:10:00 149 mm[Hg] [facility] Diastolic blood 2021-07-04 08:10:00 65 mm[Hg] [facility] Heart rate 2021-07-04 08:10:00 71 /min [facility] Body temperature 2021-07-04 08:10:00 36.22 Priya [facility] Respiratory rate 2021-07-04 08:10:00 18 /min [facility] Oxygen saturation in 2021-07-04 08:10:00 93 /min [facility] Arterial blood by Medical [facility] Pulse oximetry Systolic blood 2021-07-03 14:23:00 123 mm[Hg] [facility] Diastolic blood 2021-07-03 14:23:00 60 mm[Hg] [facility] Heart rate 2021-07-03 14:23:00 70 /min [facility] Body temperature 2021-07-03 14:23:00 35.94 Priya [facility] Respiratory rate 2021-07-03 14:23:00 18 /min [facility] Oxygen saturation in 2021-07-03 14:23:00 97 /min [facility] Arterial blood by Medical Ce nter Pulse oximetry Body weight 2021-07-03 13:00:00 60.4 kg [facility] BMI 2021-07-03 13:00:00 23.59 kg/m2 [facility] Systolic blood 2021-07-03 08:18:00 156 mm[Hg] [facility] Diastolic blood 2021-07-03 08:18:00 67 mm[Hg] [facility] Heart rate 2021-07-03 08:18:00 68 /min [facility] Body temperature 2021-07-03 08:18:00 36.22 Priya [facility] Respiratory rate 2021-07-03 08:18:00 20 /min [facility] Oxygen saturation in 2021-07-03 08:18:00 94 /min [facility] Arterial blood by Medical Ce nter Pulse oximetry Heart rate 2021-07-02 10:00:00 72 /min [facility] Systolic blood 2021-07-02 08:00:00 171 mm[Hg] [facility] Diastolic blood 2021-07-02 08:00:00 78 mm[Hg] [facility] Body temperature 2021-07-02 08:00:00 36.56 Priya [facility] Respiratory rate 2021-07-02 08:00:00 20 /min [facility] Oxygen saturation in 2021-07-02 08:00:00 94 /min [facility] Arterial blood by Medical Ce nter Pulse oximetry Body weight 2021-07-02 04:21:00 62.37 kg [facility] BMI 2021-07-02 04:21:00 24.36 kg/m2 [facility] Systolic blood 2021-07-01 09:15:00 167 mm[Hg] [facility] Diastolic blood 2021-07-01 09:15:00 71 mm[Hg] [facility] Heart rate 2021-07-01 09:15:00 71 /min [facility] Respiratory rate 2021-07-01 09:15:00 14 /min [facility] Oxygen saturation in 2021-07-01 09:15:00 96 /min [facility] Arterial blood by Medical Ce nter Pulse oximetry Body temperature 2021-07-01 09:00:00 36.44 Priya [facility] Systolic blood 2021-06-29 14:24:00 169 mm[Hg] [facility] Diastolic blood 2021-06-29 14:24:00 71 mm[Hg] [facility] Heart rate 2021-06-29 14:24:00 70 /min [facility] Body temperature 2021-06-29 14:24:00 36.67 Priya [facility] Respiratory rate 2021-06-29 14:24:00 20 /min [facility] Oxygen saturation in 2021-06-29 14:24:00 98 /min [facility] Arterial blood by Medical Ce nter Pulse oximetry Systolic blood 2021-06-29 07:46:00 133 mm[Hg] [facility] Diastolic blood 2021-06-29 07:46:00 63 mm[Hg] [facility] Heart rate 2021-06-29 07:46:00 70 /min [facility] Body temperature 2021-06-29 07:46:00 36.44 Priya [facility] Respiratory rate 2021-06-29 07:46:00 20 /min [facility] Oxygen saturation in 2021-06-29 07:46:00 97 /min [facility] Arterial blood by Medical Ce nter Pulse oximetry Systolic blood 2021-06-26 10:15:00 169 mm[Hg] [facility] Diastolic blood 2021-06-26 10:15:00 66 mm[Hg] [facility] Heart rate 2021-06-26 10:15:00 71 /min [facility] Body temperature 2021-06-26 10:15:00 36.56 Priya [facility] Respiratory rate 2021-06-26 10:15:00 16 /min [facility] Oxygen saturation in 2021-06-26 10:15:00 99 /min [facility] Arterial blood by Medical Ce nter Pulse oximetry Systolic blood 2021-06-26 08:15:00 128 mm[Hg] [facility] Diastolic blood 2021-06-26 08:15:00 53 mm[Hg] [facility] Heart rate 2021-06-26 08:15:00 70 /min [facility] Body temperature 2021-06-26 08:15:00 36.5 Priya [facility] Respiratory rate 2021-06-26 08:15:00 9 /min [facility] Oxygen saturation in 2021-06-26 08:15:00 97 /min [facility] Arterial blood by Medical Ce nter Pulse oximetry Body weight 2021-06-25 00:00:00 64.5 kg [facility] BMI 2021-06-25 00:00:00 25.19 kg/m2 [facility] Body height 2021-06-13 11:09:00 160 cm [facility] Body height 2020-07-24 16:34:00 160 cm [facility] Body weight 2020-07-24 16:34:00 67 kg [facility] BMI 2020-07-24 16:34:00 26.17 kg/m2 [facility] Temperature Oral (F) 2019-02-19 22:00:00 98.3 F [facility] [place] Heart Rate 2019-02-19 22:00:00 [facility] [place] Respitory Rate 2019-02-19 22:00:00 Talisha al [place] Systolic (mm Hg) 2019-02-19 22:00:00 Dickson arzate [place] Diastolic (mm Hg) 2019-02-19 22:00:00 Mem orial [place] Height 2019-02-19 11:49:00 [facility] [place] Weight 2019-02-19 11:49:00 [facility] [place] Height 2019-01-26 05:47:00 [facility] [place] Heart Rate 2019-01-26 05:47:00 [facility] [place] Respitory Rate 2019-01-26 05:47:00 Memori al [place] Systolic (mm Hg) 2019-01-26 05:47:00 Dickson rial [place] Diastolic (mm Hg) 2019-01-26 05:47:00 Mem orial [place] Temperature Oral (F) 2019-01-26 05:19:00 101.3 F [facility] [place] Weight 2019-01-26 01:51:00 [facility] [place] Heart Rate 2018-10-11 20:05:00 [facility] [place] Systolic (mm Hg) 2018-10-11 20:05:00 Dickson rial [place] Diastolic (mm Hg) 2018-10-11 20:05:00 Mem orial [place] Temperature Oral (F) 2018-10-11 20:00:00 98.1 F [facility] [place] Respitory Rate 2018-10-11 20:00:00 Memori al [place] Height 2018-10-10 13:16:00 [facility] [place] Weight 2018-10-10 13:16:00 [facility] [place] Procedures Procedure Date / Time Performing Clinician Source Performed EXTERNAL PROVIDER RECORDS 2022-06-02 06:01:00 Doctor Unassigned[facility] EXTERNAL PROVIDER RECORDS 2022-04-06 06:01:00 Doctor Unassigned, [facility] EXTERNAL PROVIDER RECORDS 2021-12-15 05:01:00 Doctor Unassigned, [facility] EXTERNAL PROVIDER - ADC 2021-10-21 05:01:00 Doctor Unassigned, N o [facility] ARRYTHMIA IMPLANT REPORT 2021-07-06 00:00:00 Provider, Default C AIRAM [facility] POCT-GLUCOSE METER 2021-07-04 08:33:[address] [facility] CBC (HEMOGRAM ONLY) 2021-07-04 04:37:00 Martinez Ricardo [facility] BASIC METABOLIC PANEL 2021-07-04 04:37:00 Martinez Ricardo [facility] MAGNESIUM 2021-07-04 04:37:00 [place], Martinez [facility] PHOSPHORUS 2021-07-04 04:37:[address] [facility] XR CHEST 1 VIEW PORTABLE 2021-07-04 04:30:00 Davion Martinez [facility] / BEDSIDE [facility] POCT-GLUCOSE METER 2021-07-03 21:18:00 RussoLogan [facility] POCT-GLUCOSE METER 2021-07-03 17:40:00 RussoLogan [facility] SARS-COV2/RT-PCR ([facility] 2021-07-03 17:24:00 [facility] POCT-GLUCOSE METER 2021-07-03 16:06:00 Logan Russo [facility] REPORT OF PROCEDURE - 2021-07-03 15:34:23 AmaratAngela croft [facility] ENDOSCOPY URL [facility] COLONOSCOPY 2021-07-03 15:05:00 AmaratAngela croft [facility] TISSUE EXAM 2021-07-03 15:04:00 [facility] COLONOSCOPY,POLYPECTOMY 2021-07-03 14:39:00 AmaratRowan croft [facility] COLONOSCOPY, WITH 2021-07-03 14:39:00 AmaratAngela croft [facility] POLYPECTOMY [facility] COLONOSCOPY 2021-07-03 14:00:00 AmaratAngela croft [facility] POCT-GLUCOSE METER 2021-07-03 13:31:00 Logan Russo [facility] COLONOSCOPY 2021-07-03 13:00:00 AmaratAngela croft [facility] HEMODIALYSIS INPATIENT 2021-07-03 10:32:50 Wilner Aponte [facility] POCT-GLUCOSE METER 2021-07-03 08:44:[address] [facility] XR CHEST 1 VIEW PORTABLE 2021-07-03 05:24:00 [facility] (HE[facility] ONLY[facility] 2021-07-03 03:08[facility] 2021-07-03 03:08:00 JaimeeMartinez howell [facility] MAGNESIUM 2021-07-03 03:08:00 [facility] 2021-07-03 03:08:00 Petermorelialynda [facility] POCT-GLUCOSE METER 2021-07-02 21:26:00 Russo, Logan Vaca [facility] POCT-GLUCOSE METER 2021-07-02 17:49:[address] [facility] POCT-GLUCOSE METER 2021-07-02 12:48:00 Russo, Logan Vaca [facility] POCT-GLUCOSE METER 2021-07-02 08:33:[address] [facility] XR CHEST 1 VIEW PORTABLE 2021-07-02 06:45:00 Davion [facility] CBC (HEMOGRAM ONLY) 2021-07-02 05:29:00 Davion [facility] BASIC METABOLIC PANEL 2021-07-02 05:29:00 DavionMartinez [facility] MAGNESIUM 2021-07-02 05:29:[address] [facility] PHOSPHORUS 2021-07-02 05:29:00 Davion [facility] POCT-GLUCOSE METER 2021-07-01 21:45:00 Russo, Logan Vaca [facility] POCT-GLUCOSE METER 2021-07-01 17:44:[address] [facility] POCT-GLUCOSE METER 2021-07-01 13:26:00 Russo, Logan Vaca [facility] HEMODIALYSIS INPATIENT 2021-07-01 12:51:00 Wilner Aponte [facility] HEMODIALYSIS INPATIENT 2021-07-01 09:16:58 Wilner Aponte [facility] POCT-GLUCOSE METER 2021-07-01 08:31:00 Logan Russo [facility] XR CHEST 1 VIEW PORTABLE 2021-07-01 05:38:00 Martinez Ricardo [facility] CBC (HEMOGRAM ONLY) 2021-07-01 05:15:00 Martinez Ricardo [facility] BASIC METABOLIC PANEL 2021-07-01 05:15:00 Martinez Ricardo [facility] MAGNESIUM 2021-07-01 05:15:00 [facility] 2021-07-01 05:15:00 Davion [facility] POCT-GLUCOSE METER 2021-06-30 21:03:[address] [facility] VENOGRAM 2021-06-30 18:06:[address] [facility] POCT-GLUCOSE METER 2021-06-30 17:27:[address] [facility] XR ABDOMEN/KUB 1 VIEW 2021-06-30 17:21:[address] [facility] POCT-GLUCOSE METER 2021-06-30 12:24:[address] [facility] POCT-GLUCOSE METER 2021-06-30 08:15:[address] [facility] CBC (HEMOGRAM ONLY) 2021-06-30 04:40:00 Davion [facility] BASIC METABOLIC PANEL 2021-06-30 04:40:00 Martinez Ricardo [facility] MAGNESIUM 2021-06-30 04:40:00 [facility] 2021-06-30 04:40:00 [facility]ST 1 VIEW PORTABLE 2021-06-30 03:46:00 Martinez Ricardo [facility] PREPARE LEUKO-REDUCED RBC 2021-06-29 23:54:00 Dillon Ricardo [facility] POCT-GLUCOSE METER 2021-06-29 21:53:[address] [facility] POCT-GLUCOSE METER 2021-06-29 17:44:[address] [facility] POCT-GLUCOSE METER 2021-06-29 14:20:[address] [facility] HEMODIALYSIS INPATIENT 2021-06-29 13:25:00 Bertrand Bueno [facility] POCT-GLUCOSE METER 2021-06-29 08:39:[address] [facility] XR CHEST 1 VIEW PORTABLE 2021-06-29 05:20:00 Martinez Ricardo [facility] CBC (HEMOGRAM ONLY) 2021-06-29 04:49:00 Martinez Ricardo [facility] BASIC METABOLIC PANEL 2021-06-29 04:49:00 Martinez Ricardo I [facility] MAGNESIUM 2021-06-29 04:49:[address] [facility] PHOSPHORUS 2021-06-29 04:49:[address] [facility] POCT-GLUCOSE METER 2021-06-28 19:42:[address] [facility] POCT-GLUCOSE METER 2021-06-28 17:22:[address] [facility] CBC W/PLT COUNT & AUTO 2021-06-28 15:23:00 Niki [facility] CBC W/PLT COUNT & AUTO 2021-06-28 15:23:00 Nathalie Prince [facility] POCT-GLUCOSE METER 2021-06-28 12:31:[address] [facility] TRANSFUSE LEUKO-REDUCED 2021-06-28 11:03:00 Martinez Ricardo [facility] RED BLOOD CELLS [facility] PREPARE LEUKO-REDUCED RBC 2021-06-28 10:49:00 Dillon Ricardo [facility] POCT-GLUCOSE METER 2021-06-28 08:32:00 Logan Russo [facility] XR CHEST 1 VIEW PORTABLE 2021-06-28 04:23:00 Martinez Ricardo [facility] / BEDSIDE [facility] CBC (HEMOGRAM ONLY) 2021-06-28 04:05:00 Martinez Ricardo [facility] BASIC METABOLIC PANEL 2021-06-28 04:05:00 Martinez Ricardo CH [facility] MAGNESIUM 2021-06-28 04:05:[address] [facility] PHOSPHORUS 2021-06-28 04:05:[address] [facility] PREPARE LEUKO-REDUCED RBC 2021-06-27 23:54:00 Dillon Ricardo [facility] POCT-GLUCOSE METER 2021-06-27 21:27:00 RussoLogan [facility] POCT-GLUCOSE METER 2021-06-27 17:51:[address] [facility] POCT-GLUCOSE METER 2021-06-27 15:02:00 UrssoLogan del cid [facility] POCT-GLUCOSE METER 2021-06-27 12:08:00 RussoLogan [facility] POCT-GLUCOSE METER 2021-06-27 08:23:[address] [facility] SARS-COV2/RT-PCR ([facility] & 2021-06-27 04:13:00 Martinez Ricardo [facility] REF LABS) [facility] CBC (HEMOGRAM ONLY) 2021-06-27 04:08:00 Martinez Ricardo [facility] BASIC METABOLIC PANEL 2021-06-27 04:08:00 Martinez Ricardo CH [facility] MAGNESIUM 2021-06-27 04:08:[address] [facility] PHOSPHORUS 2021-06-27 04:08:[address] [facility] APTT 2021-06-27 04:08:00 Abel Hernandez [facility] PROTHROMBIN TIME/INR 2021-06-27 04:08:00 Abel Hernandez [facility] XR CHEST 1 VIEW PORTABLE 2021-06-27 03:58:00 Martinez Ricardo [facility] BEDSIDE [facility] POCT-GLUCOSE METER 2021-06-26 20:59:00 Russo, Logan Vaca [facility] HEMODIALYSIS INPATIENT 2021-06-26 19:13:00 Wilner Aponte [facility] POCT-GLUCOSE METER 2021-06-26 18:55:00 Russo, Logan Vaca [facility] HEMOGLOBIN AND HEMATOCRIT 2021-06-26 11:31:00 Dannielle Erwin [facility] POCT-GLUCOSE METER 2021-06-26 11:15:00 Russo, Logan Vaca [facility] POCT-GLUCOSE METER 2021-06-26 09:16:[address] [facility] LASER EXTRACTION,LEAD 2021-06-26 07:30:00 Krzysztof Ryan [facility] TRANSFUSE LEUKO-REDUCED 2021-06-26 06:15:00 Martinez Ricardo [facility] RED BLOOD CELLS [facility] PREPARE LEUKO-REDUCED RBC 2021-06-26 06:01:00 Dillon Ricardo [facility] CBC (HEMOGRAM ONLY) 2021-06-26 03:25:00 Martinez Ricardo [facility] BASIC METABOLIC PANEL 2021-06-26 03:25:00 Martinez Ricardo CH I [facility] MAGNESIUM 2021-06-26 03:25:[address] [facility] PHOSPHORUS 2021-06-26 03:25:[address] [facility] APTT 2021-06-26 03:25:00 MaryAbel hernandez [facility] PROTHROMBIN TIME/INR 2021-06-26 03:25:00 MaryAbel hernandez [facility] XR CHEST 1 VIEW PORTABLE 2021-06-26 01:25:00 Martinez Ricardo [facility] POCT-GLUCOSE METER 2021-06-25 21:46:[address] [facility] TYPE AND SCREEN, 2021-06-25 18:55:00 Krzysztof Ryan [facility] AUTOMATED [facility] IR TUNNELED CATHETER 2021-06-25 17:45:[address] [facility] POCT-GLUCOSE METER 2021-06-25 11:18:[address] [facility] ECG 12-LEAD 2021-06-25 09:57:06 Unknown, Hl7 [facility] ECG 12-LEAD 2021-06-25 09:57:06 Unknown, 7 [facility] ECG 12-LEAD 2021-06-25 09:56:17 Unknown, 7 [facility] CBC (HEMOGRAM ONLY) 2021-06-25 02:56:00 [facility] 2021-06-25 02:56:00 Martinez Ricardo I [facility] MAGNESIUM 2021-06-25 02:56:[address] [facility] PHOSPHORUS 2021-06-25 02:56:00 Davion [facility] APTT 2021-06-25 02:56:00 MaryAbel hernandez [facility] PROTHROMBIN TIME/INR 2021-06-25 02:56:00 MaryAbel hernandez [facility] XR CHEST 1 VIEW PORTABLE 2021-06-25 02:31:00 [facility] POCT-GLUCOSE METER 2021-06-24 22:02:[address] [facility] XR ABDOMEN/KUB 1 VIEW 2021-06-24 18:29:00 Gurinder Nash [facility] POCT-GLUCOSE METER 2021-06-24 16:07:[address] [facility] POCT-GLUCOSE METER 2021-06-24 12:26:[address] [facility] HEMODIALYSIS INPATIENT 2021-06-24 11:25:03 Jersey CostelloGeronimoo [facility] POCT-GLUCOSE METER 2021-06-24 08:28:00 Beth, Logan Vaca [facility] CBC (HEMOGRAM ONLY) 2021-06-24 03:01:00 Davion [facility] BASIC METABOLIC PANEL 2021-06-24 03:01:00 Martinez Ricardo I [facility] MAGNESIUM 2021-06-24 03:01:[address] [facility] PHOSPHORUS 2021-06-24 03:01:00 Davion [facility] APTT 2021-06-24 03:01:00 Abel Hernandez [facility] PROTHROMBIN TIME/INR 2021-06-24 03:01:00 Abel Hernandez [facility] XR CHEST 1 VIEW PORTABLE 2021-06-24 00:32:00 Martinez Ricardo [facility] POCT-GLUCOSE METER 2021-06-23 20:56:[address] [facility] POCT-GLUCOSE METER 2021-06-23 16:10:[address] [facility] BASIC METABOLIC PANEL 2021-06-23 12:59:00 Omaira Manzo [facility] POCT-GLUCOSE METER 2021-06-23 11:20:[address] [facility] POCT-GLUCOSE METER 2021-06-23 07:29:[address] [facility] BASIC METABOLIC PANEL 2021-06-23 04:49:00 Omaira Manzo [facility] MAGNESIUM 2021-06-23 04:49:00 Davion [facility] PHOSPHORUS 2021-06-23 04:49:00 Davion [facility] CBC (HEMOGRAM ONLY) 2021-06-23 02:41:00 Davion [facility] APTT 2021-06-23 02:41:00 Abel Hernandez [facility] PROTHROMBIN TIME/INR 2021-06-23 02:41:00 Abel Hernandez [facility] XR CHEST 1 VIEW PORTABLE 2021-06-23 01:19:00 Nan Ricardochary [facility] / BEDSIDE [facility] POCT-GLUCOSE METER 2021-06-22 22:11:[address] [facility] POCT-GLUCOSE METER 2021-06-22 18:02:[address] [facility] 2D ECHO W/ DOPPLER 2021-06-22 15:55:38 Lupis Erwin CH [facility] (CW/PW/COLOR) [facility] BASIC METABOLIC PANEL 2021-06-22 14:30:00 Jovany [facility] POCT-GLUCOSE METER 2021-06-22 12:25:[address] [facility] HEMODIALYSIS INPATIENT 2021-06-22 11:44:15 Wilner Aponte [facility] OXYGEN SATURATION, 2021-06-22 10:35:00 Lupis Erwin CH, I [facility] BASIC METABOLIC PANEL 2021-06-22 05:37:00 Jovany [facility] CBC (HEMOGRAM ONLY) 2021-06-22 01:34:00 Davion [facility] APTT 2021-06-22 01:34:00 Abel Hernandez [facility] PROTHROMBIN TIME/INR 2021-06-22 01:34:00 MaryAbel hernandez [facility] BASIC METABOLIC PANEL 2021-06-22 01:33:00 Jovany [facility] MAGNESIUM 2021-06-22 01:33:00 Davion [facility] PHOSPHORUS 2021-06-22 01:33:00 Davion [facility] XR CHEST 1 VIEW PORTABLE 2021-06-22 01:05:[address] [facility] POCT-GLUCOSE METER 2021-06-21 21:09:00 RussoLogan [facility] POCT-GLUCOSE METER 2021-06-21 18:58:00 RussoLogan [facility] POCT-GLUCOSE METER 2021-06-21 13:30:[address] [facility] BASIC METABOLIC PANEL 2021-06-21 13:29:00 Anblanka [facility] PREPARE LEUKO-REDUCED RBC 2021-06-21 03:28:00 Derick Carver Si [facility] BASIC METABOLIC PANEL 2021-06-21 03:21:00 Jovany [facility] MAGNESIUM 2021-06-21 03:21:00 Roni [facility] PHOSPHORUS 2021-06-21 03:21:00 Roni [facility] CBC (HEMOGRAM ONLY) 2021-06-21 03:21:00 Davion [facility] APTT 2021-06-21 03:21:00 Abel Hernandez [facility] PROTHROMBIN TIME/INR 2021-06-21 03:21:00 [facility] PORTABLE 2021-06-21 01:34:[address] [facility] PREPARE LEUKO-REDUCED RBC 2021-06-20 23:54:00 Tino Art [facility] BASIC METABOLIC PANEL 2021-06-20 17:40:00 Jovany Chonayad Cohen [facility] POCT-GLUCOSE METER 2021-06-20 13:33:[address] [facility] POCT-GLUCOSE METER 2021-06-20 06:06:[address] [facility] SARS-COV2/RT-PCR ([facility] & 2021-06-20 01:20:00 Davion [facility] REF LABS) [facility] BLOOD GAS, ARTERIAL 2021-06-20 01:20:00 MaryAbel hernandez [facility] BASIC METABOLIC PANEL 2021-06-20 01:19:00 Ahmad [facility] MAGNESIUM 2021-06-20 01:19:00 Ahmad [facility] PHOSPHORUS 2021-06-20 01:19:00 Roni [facility] CBC (HEMOGRAM ONLY) 2021-06-20 01:19:00 Davion [facility] APTT 2021-06-20 01:19:00 Abel Hernandez [facility] PROTHROMBIN TIME/INR 2021-06-20 01:19:00 Mary [facility] CALCIUM, IONIZED 2021-06-20 01:19:00 Jersey Costello Wilner [facility] XR CHEST 1 VIEW PORTABLE 2021-06-20 01:05:00 Martinez Ricardo [facility] BEDSIDE [facility] PREPARE PLATELETS 2021-06-19 23:55:00 Jameson Kuo [facility] PREPARE RBC 2021-06-19 23:54:00 Logan Russo [facility] MAGNESIUM 2021-06-19 21:32:00 [facility] 2021-06-19 21:32:00 Jersey [facility] 2021-06-19 21:32:00 Wilner Aponte [facility] BASIC METABOLIC PANEL 2021-06-19 21:32:00 Omaira Manzo [facility] POCT-GLUCOSE METER 2021-06-19 17:55:[address] [facility] BLOOD GAS, ARTERIAL 2021-06-19 12:39:00 Mary, Abel Rey [facility] BLOOD GAS, ARTERIAL 2021-06-19 11:13:00 Mary, Abel Rey [facility] POCT-GLUCOSE METER 2021-06-19 08:41:00 Russo, Logan Vaca [facility] TRANSFUSE LEUKO-REDUCED 2021-06-19 07:45:00 Derick Carver [facility] RED BLOOD CELLS [facility] BASIC METABOLIC PANEL 2021-06-19 02:14:00 Ahmad [facility] MAGNESIUM 2021-06-19 02:14:00 Ahmad [facility] PHOSPHORUS 2021-06-19 02:14:00 Ahmad, [facility] CBC (HEMOGRAM ONLY) 2021-06-19 02:14:00 Davion Martinez [facility] APTT 2021-06-19 02:14:00 MaryAbel [facility] PROTHROMBIN TIME/INR 2021-06-19 02:14:00 MaryAbel [facility] BLOOD GAS, ARTERIAL 2021-06-19 02:14:00 MaryAbel [facility] OXYGEN SATURATION, 2021-06-19 02:14:[address] [facility] XR CHEST 1 VIEW PORTABLE 2021-06-19 01:52:00 Davion Martinez [facility] BEDSIDE [facility] POCT-GLUCOSE METER 2021-06-18 23:55:[address] [facility] PREPARE LEUKO-REDUCED RBC 2021-06-18 23:55:00 Shiva Jeter [facility] POCT-GLUCOSE METER 2021-06-18 23:03:[address] [facility] POCT-GLUCOSE METER 2021-06-18 21:14:[address] [facility] POCT-GLUCOSE METER 2021-06-18 18:54:[address] [facility] CBC (HEMOGRAM ONLY) 2021-06-18 18:15:00 Mary, [facility] BASIC METABOLIC PANEL 2021-06-18 18:15:00 Mary, [facility] APTT 2021-06-18 18:15:00 Mary, [facility] PROTHROMBIN TIME/INR 2021-06-18 18:15:00 Mary, [facility] LACTIC ACID, ARTERIAL 2021-06-18 18:15:00 Mary, [facility] PHOSPHORUS 2021-06-18 18:15:00 Mary, [facility] MAGNESIUM 2021-06-18 18:15:00 Mary, [facility] BLOOD GAS, ARTERIAL 2021-06-18 18:15:00 Mary [facility] OXYGEN SATURATION, 2021-06-18 18:15:[address] [facility] RRL CRITICAL LABS 2021-06-18 16:04:00 Mary [facility] (ABG,NA,K,H&H,GLUCOSE) Medical C enter CALCIUM, IONIZED 2021-06-18 16:04:00 Mary, [facility] BLOOD GAS, ARTERIAL 2021-06-18 16:04:00 Mary, [facility] SODIUM NA-STAT LAB 2021-06-18 16:04:00 Mary, [facility] POTASSIUM-STAT LAB 2021-06-18 16:04:00 Mary, [facility] GLUCOSE-STAT LAB 2021-06-18 16:04:00 Mary, [facility] HGB/HCT (H&H) - STAT LAB 2021-06-18 16:04:00 Abel Hernandez [facility] PREPARE PLASMA 2021-06-18 15:44:00 Logan Russo [facility] XR CHEST 1 VIEW PORTABLE 2021-06-18 15:33:00 Abel Hernandez [facility] OXYGEN SATURATION, 2021-06-18 15:03:00 Abel Hernandez [facility] SURGICALLY OBTAINED 2021-06-18 15:01:35 Logan Russo [facility] CULTURE + GRAM STAIN Medical [facility] ter FUNGUS CULTURE + SMEAR 2021-06-18 15:01:35 Logan Russo [facility] [employer] CULTURE + SMEAR 2021-06-18 15:01:35 Logan Russo [facility] (NON-SPUTUM) [facility] HEMOGLOBIN AND HEMATOCRIT 2021-06-18 14:58:00 Luh Cosby CH I [facility] CBC W/PLT COUNT & AUTO 2021-06-18 14:58:[address] [facility] CBC W/PLT COUNT & AUTO 2021-06-18 14:58:[address] [facility] (CELLAVISION MANUAL DIFF) 2021-06-18 14:58:00 Abel Hernandez [facility] BASIC METABOLIC PANEL 2021-06-18 14:57:00 Abel Hernandez CH I [facility] MAGNESIUM 2021-06-18 14:57:00 Abel Hernandez [facility] CALCIUM, IONIZED 2021-06-18 14:57:00 Abel Hernandez [facility] PROTHROMBIN TIME/INR 2021-06-18 14:57:00 Abel Hernandez [facility] APTT 2021-06-18 14:57:00 Abel Hernandez [facility] PHOSPHORUS 2021-06-18 14:57:00 Abel Hernandez [facility] POTASSIUM 2021-06-18 14:57:00 Abel Hernandez [facility] PREPARE PLATELETS 2021-06-18 14:20:00 Jameson Kuo [facility] PLATELET COUNT 2021-06-18 13:12:54 Max [facility] POCT-ACT 2021-06-18 13:08:00 Logan Russo [facility] RRL CRITICAL LABS 2021-06-18 13:05:56 Max [facility] (ABG,NA,K,H&H,GLUCOSE) [facility] enter CALCIUM, IONIZED 2021-06-18 13:05:[facility] 2021-06-18 13:05:56 Max [facility] APTT 2021-06-18 13:05:56 Simpson [facility] PROTHROMBIN TIME/INR 2021-06-18 13:05:[address] [facility] BLOOD GAS, ARTERIAL 2021-06-18 13:05:[address] [facility] SODIUM NA-STAT LAB 2021-06-18 13:05:[address] [facility] POTASSIUM-STAT LAB 2021-06-18 13:05:56 Max, [facility] GLUCOSE-STAT LAB 2021-06-18 13:05:56 Max [facility] HGB/HCT (H&H) - STAT LAB 2021-06-18 13:05:56 Asad Santana [facility] TRANSFUSE LEUKO-REDUCED 2021-06-18 12:46:00 Asad Santana [facility] TRANSFUSE LEUKO-REDUCED 2021-06-18 12:45:00 Asad Santana [facility] RRL CRITICAL LABS 2021-06-18 12:22:57 Logan Russo [facility] (ABG,NA,K,H&H,GLUCOSE) Medical C enter BLOOD GAS, ARTERIAL 2021-06-18 12:22:57 Beth [facility] SODIUM NA-STAT LAB 2021-06-18 12:22:57 Russo [facility] POTASSIUM-STAT LAB 2021-06-18 12:22:57 Beth [facility] GLUCOSE-STAT LAB 2021-06-18 12:22:57 Beth Logan [facility] HGB/HCT (H&H) - STAT LAB 2021-06-18 12:22:57 Beth [facility] POCT-ACT 2021-06-18 12:20:00 Beth [facility] RRL CRITICAL LABS 2021-06-18 12:17:57 Beth Logan [facility] (ABG,NA,K,H&H,GLUCOSE) Medical C enter BLOOD GAS, ARTERIAL 2021-06-18 12:17:57 Beth [facility] SODIUM NA-STAT LAB 2021-06-18 12:17:57 Beth [facility] POTASSIUM-STAT LAB 2021-06-18 12:17:57 Beth [facility] GLUCOSE-STAT LAB 2021-06-18 12:17:57 Beth [facility] HGB/HCT (H&H) - STAT LAB 2021-06-18 12:17:57 Beth Logan [facility] MISCELLANEOUS LAB ORDER 2021-06-18 11:59:38 Asad Santana I [facility] PLATELET COUNT 2021-06-18 11:59:38 Asad Santana [facility] FIBRINOGEN 2021-06-18 11:59:38 Max [facility] PROTHROMBIN TIME/INR 2021-06-18 11:59:38 Asad Santana [facility] APTT 2021-06-18 11:59:38 Asad Santana [facility] POCT-ACT 2021-06-18 11:43:00 Russo, Logan Vaca [facility] TISSUE EXAM 2021-06-18 11:41:00 Russo, Logan Vaca [facility] RRL CRITICAL LABS 2021-06-18 11:40:27 Russo, Logan Vaca [facility] (ABG,NA,K,H&H,GLUCOSE) Medical C enter BLOOD GAS, ARTERIAL 2021-06-18 11:40:27 Russo, Logan Vaca [facility] SODIUM NA-STAT LAB 2021-06-18 11:40:27 Russo, Logan Vaca [facility] POTASSIUM-STAT LAB 2021-06-18 11:40:27 Russo, Logan Nola [facility] GLUCOSE-STAT LAB 2021-06-18 11:40:27 Russo Logan Vaca [facility] HGB/HCT (H&H) - STAT LAB 2021-06-18 11:40:27 Russo Logan Vaca [facility] POCT-ACT 2021-06-18 11:15:00 Russo Logan Vaca [facility] RRL CRITICAL LABS 2021-06-18 11:13:46 Russo, Loagn Vaca [facility] (ABG,NA,K,H&H,GLUCOSE) Medical C enter BLOOD GAS, ARTERIAL 2021-06-18 11:13:46 RussoLogan del cid Nola [facility] SODIUM NA-STAT LAB 2021-06-18 11:13:[address] [facility] POTASSIUM-STAT LAB 2021-06-18 11:13:[address] [facility] GLUCOSE-STAT LAB 2021-06-18 11:13:46 Beth Logan Vaca [facility] HGB/HCT (H&H) - STAT LAB 2021-06-18 11:13:46 Beth Logan Vaca [facility] POCT-ACT 2021-06-18 10:47:00 RussoLogan del cid [facility] RRL CRITICAL LABS 2021-06-18 10:45:20 Russo, [facility] (ABG,NA,K,H&H,GLUCOSE) Medical C enter BLOOD GAS, ARTERIAL 2021-06-18 10:45:20 Russo, [facility] SODIUM NA-STAT LAB 2021-06-18 10:45:20 Russo, [facility] POTASSIUM-STAT LAB 2021-06-18 10:45:20 Russo, [facility] GLUCOSE-STAT LAB 2021-06-18 10:45:20 Russo, [facility] HGB/HCT (H&H) - STAT LAB 2021-06-18 10:45:20 Russo, [facility] POCT-ACT 2021-06-18 10:14:00 Russo, [facility] ANESTHESIA NIMCO 2021-06-18 10:03:35 Lydia Marmolejo [facility] TRANSFUSE LEUKO-REDUCED 2021-06-18 09:26:00 Asad Santana [facility] RED BLOOD CELLS [facility] RRL CRITICAL LABS 2021-06-18 08:54:20 Max [facility] (ABG,NA,K,H&H,GLUCOSE) [facility] enter CALCIUM, IONIZED 2021-06-18 08:54:20 Max [facility] BLOOD GAS, ARTERIAL 2021-06-18 08:54:[address] [facility] SODIUM NA-STAT LAB 2021-06-18 08:54:[address] [facility] POTASSIUM-STAT LAB 2021-06-18 08:54:[address] [facility] GLUCOSE-STAT LAB 2021-06-18 08:54:20 [facility] - STAT LAB 2021-06-18 08:54:20 Asad Santana [facility] ECHOCARDIOGRAM, 2021-06-18 07:38:00 Russo, Logan R [facility] TRANSESOPHAGEAL [facility] REPAIR, MITRAL VALVE 2021-06-18 07:38:00 Russo, Logan Vaca [facility] REPAIR, TRICUSPID VALVE 2021-06-18 07:38:00 RussoLogan [facility] STERNOTOMY 2021-06-18 07:38:00 RussoLogan [facility] NIMCO 2021-06-18 07:38:00 RussoLogan [facility] CBC W/PLT COUNT & AUTO 2021-06-18 05:37[facility] 2021-06-18 05:37:00 Ahmad [facility] MAGNESIUM 2021-06-18 05:37:00 [facility] 2021-06-18 05:37:00 [facility] W/PLT COUNT & AUTO 2021-06-18 05:37:00 [facility] TRANSFUSE LEUKO-REDUCED 2021-06-17 23:31:00 Shiva Jeter [facility] RED BLOOD CELLS [facility] POCT-GLUCOSE METER 2021-06-17 21:28:00 [facility] HEMOGLOBIN AND HEMATOCRIT 2021-06-17 21:16:[address] [facility] [address] ABDOMEN/PELVIS WITHOUT 2021-06-17 17:07:00 [facility] IV CONTRAST [facility] XR ABDOMEN/KUB 1 VIEW 2021-06-17 16:15:00 [facility] MAGNESIUM 2021-06-17 15:48:[address] [facility] COMPREHENSIVE METABOLIC 2021-06-17 15:48:00 Tino [facility] PANEL [facility] HEMOGLOBIN A1C 2021-06-17 15:48:00 [facility] CBC W/PLT COUNT & AUTO 2021-06-17 15:48:00 [facility] DIFFERENTIAL [facility] PROTHROMBIN TIME/INR 2021-06-17 15:48:00 [facility] APTT 2021-06-17 15:48:00 [facility] es [facility] TYPE AND SCREEN, 2021-06-17 15:48:00 [facility] AUTOMATED [facility] CBC W/PLT COUNT & AUTO 2021-06-17 15:48:00 [facility] DIFFERENTIAL [facility] ECG 12-LEAD 2021-06-17 15:31:19 [facility] HEMODIALYSIS INPATIENT 2021-06-17 08:22:41 Wilner Aponte [facility] CBC W/PLT COUNT & AUTO 2021-06-17 04:15[facility]OLIC PANEL 2021-06-17 04:15:00 Ahmad, [facility] MAGNESIUM 2021-06-17 04:15:00 [facility] 2021-06-17 04:15:00 [facility] CBC W/PLT COUNT & AUTO 2021-06-17 04:15:00 [facility] POCT-GLUCOSE METER 2021-06-16 23:59:00 [facility] 2021-06-16 18:00:[facility] [place] CEREBRAL 4 VESSEL 2021-06-16 12:55:00 Eloy Portillo [facility] ANGIOGRAM [facility] PACEMAKER CHECK WITH 2021-06-16 10:00:06 Mark Crane [facility] [facility] MR BRAIN WITHOUT IV 2021-06-16 09:57:00 Ladarius Jc [facility] CONTRAST [facility] PACEMAKER CHECK WITH 2021-06-16 09:31:48 Mrak Crane [facility] POCT-GLUCOSE METER 2021-06-16 07:18:[facility] W/PLT COUNT & AUTO 2021-06-16 04:21:00 Ahmad, [facility] BASIC METABOLIC PANEL 2021-06-16 04:21:00 Ahmad, [facility] MAGNESIUM 2021-06-16 04:21:00 Ahmad, [facility] PHOSPHORUS 2021-06-16 04:21:00 Ahmad, [facility] CBC W/PLT COUNT & AUTO 2021-06-16 04:21:00 Ahmad, [facility] POCT-GLUCOSE METER 2021-06-15 21:28:00 [facility] CT[facility] HEART CORONARY WITH 2021-06-15 18:20:00 Ahsarah [facility] CALCIUM EVALUATION Medical Cente r WITHOUT FFR HEPATIC FUNCTION PANEL 2021-06-15 15:18:00 [facility]et [facility] AB[facility], MANUAL 2021-06-15 05:54:00 Kelli [facility] PT/APTT 2021-06-15 04:16:00 Ahmapamela, [facility] CBC W/PLT COUNT & AUTO 2021-06-15 04:16:00 Ahmapamela, [facility] BASIC METABOLIC PANEL 2021-06-15 04:16:00 Ahmad, [facility] MAGNESIUM 2021-06-15 04:16:00 Ahmad, [facility] PHOSPHORUS 2021-06-15 04:16:00 Ahmad, [facility] TYPE AND SCREEN, 2021-06-15 04:16:00 Ahmad, [facility] CBC W/PLT COUNT & AUTO 2021-06-15 [facility]:16[facility]SE [facility]ER 2021-06-14 11:09:00 Ladarius Jc [facility] Ce nter POCT-GLUCOSE METER 2021-06-14 07:31:00 Ladarius Jc [facility] Ce nter EEG 12-26 HR CONTINUOUS 2021-06-14 06:25:[address] [facility] MONITORING WITH VIDEO [facility] CBC W/PLT COUNT & AUTO 2021-06-14 04:05:00 Roni [facility] BASIC METABOLIC PANEL 2021-06-14 04:05:00 Roni [facility] MAGNESIUM 2021-06-14 04:05:00 Roni [facility] PHOSPHORUS 2021-06-14 04:05:00 Roni [facility] CBC W/PLT COUNT & AUTO 2021-06-14 04:05:00 Angel Saenz [facility] POCT-GLUCOSE METER 2021-06-13 17:10:00 Ladarius Jc [facility] Ce nter POCT-GLUCOSE METER 2021-06-13 12:44:00 [facility] Ce nter HEPARIN ANTIBODY 2021-06-13 11:25:00 Kavitha Almodovar [facility] EEG 12-26 HR CONTINUOUS 2021-06-13 11:06:00 Pamela Orta [facility] MONITORING WITH VIDEO Medical Ce nter IRON, TIBC, % SAT. 2021-06-13 08:28:00 [facility] 2021-06-13 08:28:00 Claudette Salmeron [facility] POCT-GLUCOSE METER 2021-06-13 08:27:[address] [facility] CBC W/PLT COUNT & AUTO 2021-06-13 03:36:00 Samia Tamayo [facility] BASIC METABOLIC PANEL 2021-06-13 03:36:00 Sravansarah [facility] MAGNESIUM 2021-06-13 03:36:00 Ahakild [facility] PHOSPHORUS 2021-06-13 03:36:00 Sravansarah [facility] CBC W/PLT COUNT & AUTO 2021-06-13 03:36:00 Dany [facility] POCT-GLUCOSE METER 2021-06-13 01:48:[address] [facility] HEMODIALYSIS INPATIENT 2021-06-12 23:02:53 Harshil [facility] POCT-GLUCOSE METER 2021-06-12 18:54:[address] [facility] SARS-COV2/RT-PCR ([facility] & 2021-06-12 17:07:00 Martinez Ricardo [facility] REF LABS) [facility] EEG AWAKE AND DROWSY 2021-06-12 12:20:00 Kavitha Almodovar [facility] CT BRAIN WITHOUT IV 2021-06-12 08:15:[address] [facility] POCT-GLUCOSE METER 2021-06-12 07:20:[address] [facility] CTA BRAIN 2021-06-12 01:53:00 Janina [facility] CTA CAROTID 2021-06-12 01:53:00 Janina [facility] CT BRAIN WITHOUT IV 2021-06-12 01:31:00 [facility] CBC W/PLT COUNT & AUTO 2021-06-12 01:07:00 Roni [facility] HIGH SENSITIVITY TROPONIN 2021-06-12 01:07:00 Mary Kate Gracia [facility] LACTIC ACID, VENOUS 2021-06-12 01:07:00 Mary Kate Gracia [facility] PROTHROMBIN TIME/INR 2021-06-12 01:07:00 Mary Kate Graciahir [facility] CBC W/PLT COUNT & AUTO 2021-06-12 01:07:00 Patrizia Anshul Tyrel [facility] BASIC METABOLIC PANEL 2021-06-12 00:49:00 Ahmad, [facility] MAGNESIUM 2021-06-12 00:49:00 Ahmad, [facility] PHOSPHORUS 2021-06-12 00:49:00 Ahmad, [facility] ECG 12-LEAD 2021-06-12 00:43:57 Unknown, Hl7 [facility] ECG 12-LEAD 2021-06-12 00:43:57 Unknown, 7 [facility] ECG 12-LEAD 2021-06-12 00:40:07 Unknown, 7 [facility] ECG 12-LEAD 2021-06-12 00:39:50 Unknown, 7 [facility] ECG 12-LEAD 2021-06-12 00:39:50 Unknown, 7 [facility] POCT-GLUCOSE METER 2021-06-12 00:35:00 [facility] POCT-GLUCOSE METER 2021-06-11 20:12:00 [facility] POCT-GLUCOSE METER 2021-06-11 16:12:[address] [facility] BLOOD CULTURE 2021-06-11 11:47:[address] Cruz [facility] POCT-GLUCOSE METER 2021-06-11 11:17:00 Samia [facility] PACEMAKER CHECK 2021-06-11 10:59:25 Hernandez [facility] POCT-GLUCOSE METER 2021-06-11 06:33:[address] [facility] BLOOD CULTURE 2021-06-11 04:03:00 Jessica John [facility] CBC W/PLT COUNT & AUTO 2021-06-11 04:03:00 Ahsarah [facility] BASIC METABOLIC PANEL 2021-06-11 04:03:00 Ahmad, [facility] MAGNESIUM 2021-06-11 04:03:00 Ahmad, [facility] PHOSPHORUS 2021-06-11 04:03:00 Ahmad, [facility] CBC W/PLT COUNT & AUTO 2021-06-11 04:03:00 Asnhul Acharya [facility] POCT-BLOOD GASES, VENOUS 2021-06-10 22:25:00 [facility] POCT-SODIUM 2021-06-10 22:25:00 [facility] POCT-POTASSIUM 2021-06-10 22:25:00 [facility] POCT-HEMOGLOBIN 2021-06-10 22:25:00 [facility] POCT-HEMATOCRIT 2021-06-10 22:25:00 [facility] POCT-GLUCOSE 2021-06-10 22:25:00 [facility] CBC W/PLT COUNT & AUTO 2021-06-10 22:23:00 Jessica John [facility] CBC W/PLT COUNT & AUTO 2021-06-10 22:23:00 Jessica John [facility] XR CHEST 1 VIEW PORTABLE 2021-06-10 22:14:00 Jessica John [facility] / BEDSIDE [facility] BLOOD CULTURE 2021-06-10 22:08:00 Jessica John [facility] LACTIC ACID, VENOUS 2021-06-10 22:07:[address] [facility] POCT-GLUCOSE METER 2021-06-10 21:20:00 [facility] HEMODIALYSIS INPATIENT 2021-06-10 17:49:00 Wilner Aponte [facility] POCT-GLUCOSE METER 2021-06-10 16:22:[address] [facility] POCT-GLUCOSE METER 2021-06-10 11:29:00 [facility] POCT-GLUCOSE METER 2021-06-10 07:27:[address] [facility] CBC W/PLT COUNT & AUTO 2021-06-10 04:36[facility]OLIC PANEL 2021-06-10 04:36:00 [facility] 2021-06-10 04:36:00 [facility] PHOS[facility]US 2021-06-10 04:36:00 [facility] CBC W/PLT COUNT & AUTO 2021-06-10 04:36:00 Anshul Acharya [facility] POCT-GLUCOSE METER 2021-06-09 21:22:00 Haj-Ismail, [facility] POCT-GLUCOSE METER 2021-06-09 16:16:00 Haj-Ismail, [facility] 2D ECHO W/ DOPPLER 2021-06-09 12:21:49 Rony Shin [facility] (CW/PW/COLOR) [facility] TRANSESOPHAGEAL ECHO 2021-06-09 09:04:02 Jocelyne De La Cruz [facility] POCT-GLUCOSE METER 2021-06-09 06:11:00 Haj-Ismail, [facility] CBC W/PLT COUNT & AUTO 2021-06-09 03:34:00 [facility] BASIC METABOLIC PANEL 2021-06-09 03:34:00 Ahmad, [facility] MAGNESIUM 2021-06-09 03:34:00 Ahmad, [facility] PHOSPHORUS 2021-06-09 03:34:00 [facility] CBC W/PLT COUNT & AUTO 2021-06-09 03:34:00 Anshul Acharya [facility] POCT-GLUCOSE METER 2021-06-08 21:03:00 Nathen-Santosh [facility] HEMODIALYSIS INPATIENT 2021-06-08 15:21:58 Jersey Costello [facility] COLOR-FLOW MAPPING 2021-06-08 13:42:[address] [facility] CONT WAVE PULSED DOPPLER 2021-06-08 13:42:[address] [facility] PTH, INTACT 2021-06-08 10:29:00 Jersey Costello [facility] HEPATITIS B SURFACE 2021-06-08 10:29:00 Real Delgado [facility] HEPATITIS PANEL, ACUTE 2021-06-08 10:29:00 Habernardino-Isherbert [facility] POCT-GLUCOSE METER 2021-06-08 06:59:00 Jameson Kuo [facility] CBC W/PLT COUNT & AUTO 2021-06-08 05:00:00 Roni [facility] BASIC METABOLIC PANEL 2021-06-08 05:00:00 Roni [facility] MAGNESIUM 2021-06-08 05:00:00 [facility] PHOSPH[facility]US 2021-06-08 05:00:00 sarah [facility] PROTHROMBIN TIME/INR 2021-06-08 05:00:00 Anshul Acharya [facility] VITAMIN B12 2021-06-08 05:00:00 Anshul Acharya [facility] FERRITIN 2021-06-08 05:00:00 [facility]ON, TIBC, % SAT. 2021-06-08 05:00:00 Jersey Costello [facility] (WITHOUT FERRITIN) [facility] VITAMIN D, 25-HYDROXY 2021-06-08 05:00:00 [facility] CBC W/PLT COUNT & AUTO 2021-06-08 05:00:00 Anshul Acharya [facility] US ABDOMEN LIMITED 2021-06-08 04:51:[address] [facility] SARS-COV2/RT-PCR ([facility] & 2021-06-07 23:43:00 Angel Saenz [facility] REF LABS) [facility] POCT-GLUCOSE METER 2021-06-07 23:11:00 Shiela Jameson [facility] ECG 12-LEAD 2021-06-07 23:06:38 Unknown, Hl7 Doctor [facility] ECG 12-LEAD 2021-06-07 23:06:38 Unknown, Hl7 [facility] BLOOD CULTURE 2021-06-07 21:48:00 Anshul Acharya [facility] BLOOD CULTURE 2021-06-07 21:41:00 Anshul Acharya [facility] CBC W/PLT COUNT & AUTO 2021-06-07 21:41:00 Anshul Acharya [facility] COMPREHENSIVE METABOLIC 2021-06-07 21:41:00 Anshul Acharya [facility] VANCOMYCIN LEVEL, RANDOM 2021-06-07 21:41:00 Anshul Acharya [facility] CBC W/PLT COUNT & AUTO 2021-06-07 21:41:00 Anshul Acharya [facility] XR CHEST 1 VIEW PORTABLE 2021-06-07 19:59:00 Anshul Acharya [facility] BEDSIDE [facility] VASCULAR DIAGRAM -SCAN 2021-06-07 00:00:00 Judah Fernández [facility] CARDIAC CATH REPORT - 2021-06-07 00:00:00 ProviderJudah [facility] ARRYTHMIA IMPLANT REPORT 2021-06-07 00:00:[address] [facility] POCT GLUCOSE (AUTOMATED) 2021-05-22 23:19:00 Neil Thomas [facility] POCT GLUCOSE (AUTOMATED) 2021-05-22 17:36:00 Neil Thomas [facility] POCT GLUCOSE (AUTOMATED) 2021-05-22 13:43:00 Neil Thomas [facility] BASIC METABOLIC PANEL 2021-05-22 09:37:00 José Miguel Horn [facility] (NA, K, CL, CO2, GLUCOSE, Medica l Branch BUN, CREATININE, CA) CBC WITH DIFF 2021-05-22 09:37:00 José [facility] GLU[facility]SE 2021-05-21 23:41:00 Ricki [facility] PROTEIN TOTAL 2021-05-21 23:41:00 Ricki [facility] LACTATE DEHYDROGENASE 2021-05-21 23:41:00 Candido Robiosn [facility] TROPONIN I 2021-05-21 23:41:00 Tameka Mcdaniels [facility] N-TERMINAL PRO-BNP 2021-05-21 23:41:00 José Miguel Horn [facility] POCT GLUCOSE (AUTOMATED) 2021-05-21 23:14:00 Neil Thomas [facility] POCT GLUCOSE (AUTOMATED) 2021-05-21 16:58:00 Neil Thomas [facility] POCT GLUCOSE (AUTOMATED) 2021-05-21 13:47:00 Neil Thomas [facility] XR CHEST 1 VW 2021-05-21 13:06:23 Gt becky [facility] VITAMIN B12, LEVEL 2021-05-21 12:51:00 Taina DelR eal [facility] FOLATE 2021-05-21 12:51:00 Gt becky [facility] TROPONIN I 2021-05-21 12:51:00 Gt [facility] IRON PANEL 2021-05-21 12:51:00 Gt [facility] VITAMIN D, 25-OH 2021-05-21 12:51:00 Gt [facility] FERRITIN SERUM 2021-05-21 09:32:00 Gt becky [facility] TROPONIN I 2021-05-21 09:32:00 Gt [facility] HEPATIC FUNCTION PANEL 2021-05-21 09:32:00 Taina Del Real [facility] ([id number]) (ALB,T.PRO,BILI Medical Branch T,BU/BC,ALT,AST,ALK PHOS) BASIC METABOLIC PANEL 2021-05-21 09:32:00 José Miguel Horn [facility] (NA, K, CL, CO2, GLUCOSE, Medica l Branch BUN, CREATININE, CA) DIFF CONSULT 2021-05-21 09:32:00 Gt [facility] CBC WITH DIFF 2021-05-21 09:32:00 Kory [facility] N-TERMINAL PRO-BNP 2021-05-21 09:32:00 Gt [facility] POCT GLUCOSE (AUTOMATED) 2021-05-21 02:22:00 Neil Thomas [facility] XR CHEST 1 VW 2021-05-20 22:21:01 Ricki [facility] POCT GLUCOSE (AUTOMATED) 2021-05-20 22:14:00 Neil Thomas [facility] PH, BODY FLUID 2021-05-20 22:04:00 Candido Robison [facility] T.PROTEIN BODY FLUID 2021-05-20 22:04:00 Candido Robison [facility] BODY FLUID DIRECT COUNT 2021-05-20 22:04:00 Nem[facility] CYTO PLEURAL FLUID 2021-05-20 22:04:00 Candido Robison [facility] LDH TOTAL BODY FLUID 2021-05-20 22:04:00 Holly Redding [facility] AFB CULTURE 2021-05-20 21:50:00 Candido Robison [facility] BODY FLUID 2021-05-20 21:50:00 Candido Robison [facility] CULTURE(AEROBIC/ANAEROBIC Medica l Branch ) XR CHEST 1 VW 2021-05-20 19:13:56 Ricki [facility] o [facility] POCT GLUCOSE (AUTOMATED) 2021-05-20 16:59:00 Ovromero Neil Uni [facility] POCT GLUCOSE (AUTOMATED) 2021-05-20 13:25:00 Neil Thomas Felicia [facility] LACTATE DEHYDROGENASE 2021-05-20 09:50:00 Holly Redding [facility] BASIC METABOLIC PANEL 2021-05-20 09:50:00 Holly Redding [facility] (NA, K, CL, CO2, GLUCOSE, Medica l Branch BUN, CREATININE, CA) PROTHROMBIN TIME / INR 2021-05-20 09:50:00 Holly Redding [facility] N-TERMINAL PRO-BNP 2021-05-20 09:50:00 Tameka Mcdaniels [facility] POCT GLUCOSE (AUTOMATED) 2021-05-20 01:35:00 Neil Thomas Uni [facility] POCT GLUCOSE (AUTOMATED) 2021-05-19 23:08:00 William Neil Uni [facility] POCT GLUCOSE (AUTOMATED) 2021-05-19 17:39:00 William Neil Uni [facility] POCT GLUCOSE (AUTOMATED) 2021-05-19 14:04:00 William Neil Uni [facility] BASIC METABOLIC PANEL 2021-05-19 11:24:00 [facility] (NA, K, CL, CO2, GLUCOSE, Medica l Branch BUN, CREATININE, CA) CBC WITH DIFF 2021-05-19 11:24:00 [facility] N-TERMINAL PRO-BNP 2021-05-19 11:24:00 [facility] HEPATITIS B SURFACE 2021-05-19 03:18:00 Samantha [facility] ANTIBODY Francisca J [facility] HEPATITIS B SURFACE 2021-05-19 03:18:[address] [facility] Francisca Baker [facility] POCT GLUCOSE (AUTOMATED) 2021-05-19 03:11:00 OvNeil jasso [facility] POCT GLUCOSE (AUTOMATED) 2021-05-18 22:43:00 OvNeil jasso [facility] POCT GLUCOSE (AUTOMATED) 2021-05-18 17:46:00 [facility] POCT GLUCOSE (AUTOMATED) 2021-05-18 17:04:00 [facility] BASIC METABOLIC PANEL 2021-05-18 15:05:00 Holly Redding [facility] (NA, K, CL, CO2, GLUCOSE, Medica l Branch BUN, CREATININE, CA) POCT GLUCOSE (AUTOMATED) 2021-05-18 13:20:00 William Neil [facility] DISCLOSURE AND CONSENT, 2021-05-18 06:01:00 Doctor Unassigned, N o [facility] MEDICAL AND SURGICAL Name Medical [facility] PROCEDURES POCT GLUCOSE (AUTOMATED) 2021-05-17 22:51:00 William Neil [facility] POCT GLUCOSE (AUTOMATED) 2021-05-17 17:51:00 [facility] TRANSTHORACIC ECHO (TTE) 2021-05-17 15:04:37 [facility] POCT GLUCOSE (AUTOMATED) 2021-05-17 14:14:00 Neil Thomas [facility] PHOSPHORUS 2021-05-17 10:03:00 William [facility] MAGNESIUM 2021-05-17 10:03:00 William [facility] BASIC METABOLIC PANEL 2021-05-17 10:03:00 Neil Thomas [facility] (NA, K, CL, CO2, GLUCOSE, Medica l Branch BUN, CREATININE, CA) CBC WITHOUT DIFF 2021-05-17 10:03:00 William [facility] N-TERMINAL PRO-BNP 2021-05-17 10:03:00 Neil Thomas [facility] POCT GLUCOSE (AUTOMATED) 2021-05-16 22:34:00 William Neil [facility] POCT GLUCOSE (AUTOMATED) 2021-05-16 17:41:00 Neil Thomas [facility] POCT GLUCOSE (AUTOMATED) 2021-05-16 13:39:00 Neil Thomas [facility] MAGNESIUM 2021-05-16 08:09:00 William [facility] TROPONIN I 2021-05-16 08:09:00 William [facility] BASIC METABOLIC PANEL 2021-05-16 08:09:00 William [facility] (NA, K, CL, CO2, GLUCOSE, Medica l Branch BUN, CREATININE, CA) LIPID PANEL ([id number])(TOTAL 2021-05-16 08:09:00 Neil Thomas [facility] CHOLESTEROL, Medical [place] TRIGLYCERIDES, HDL) CBC WITHOUT DIFF 2021-05-16 08:09:00 William [facility] GLYCOSYLATED HEMOGLOBIN 2021-05-16 08:09:00 [facility] (A1C[facility] Medical Branch PHOSPHORUS 2021-05-16 02:06:00 William [facility] TROPONIN I 2021-05-16 02:06:00 William [facility] POCT GLUCOSE (AUTOMATED) 2021-05-16 02:05:00 William Neil [facility] LAB ONLY COVID 2021-05-15 22:31:00 Dangelo Ibrahim [facility] INTERPRETATION [facility] COVID-19 (ID NOW RAPID 2021-05-15 22:31:00 Dangelo Ibrahim [facility] TESTING) Medical Branch XR KNEE <3 VW RIGHT 2021-05-15 22:12:44 Dangelo Ibrahim [facility] Medical [place] CT CHEST PULMONARY 2021-05-15 22:00:00 Dangelo Ibrahim [facility] ANGIOGRAM Medical Branch XR CHEST 1 VW 2021-05-15 20:32:18 Singer [facility] LIPASE 2021-05-15 19:37:00 Singer [facility] MAGNESIUM 2021-05-15 19:37:00 Singer [facility] TROPONIN I 2021-05-15 19:37:00 Singer [facility] THYROID STIMULATING 2021-05-15 19:37:00 William [facility] HORMONE [facility] COMP. METABOLIC PANEL 2021-05-15 19:37:00 Singer Dangelo [facility] ([id number]) Medical Branch CBC WITH DIFF 2021-05-15 19:37:00 Singer [facility] GLYCOSYLATED HEMOGLOBIN 2021-05-15 19:37:00 [facility] PROTHROMBIN TIME / INR 2021-05-15 19:37:00 Singer [facility] D-DIMER 2021-05-15 19:37:00 Singer [facility] N-TERMINAL PRO-BNP 2021-05-15 19:37:00 Singer Dangelo [facility] HB ECG ROUTINE & RHYTHM 2021-05-15 19:13:17 Singer [facility] NOTICE OF PRIVACY 2021-05-15 18:55:45 Doctor Unassigned, No [facility] CONSENT/REFUSAL FOR 2021-05-15 18:55:20 [facility] HOSPITAL ADMISSION 2021-05-15 06:01:00 Doctor Unassigned, No [facility] Chest Single View 2019-02-17 00:00:00 [facility] ermann Influenza Type A Antigen 2019-02-17 00:00:00 Mem orial [place] Screen Influenza Type B Antigen 2019-02-17 00:00:00 Mem orial Juanito Screen Culture & Sensitivity 2019-01-25 00:00:00 Talisha Suarez Chest Pa And Lat (2 2019-01-25 00:00:00 [facility] Anaerobic Blood Culture 2018-10-09 00:00:00 Dickson Solomon Aerobic Blood Culture 2018-10-09 00:00:00 Talisha Suarez Gram Stain 2018-10-09 00:00:00 [facility] Anaerobic Culture 2018-10-09 00:00:00 [facility] sue Plan of Care Planned Activity Planned Date Details Comments Source Future Scheduled 2031-07-[address] [facility] 00:[facility]:00 [facility] colon (procedure) [code = 839564644] Future Scheduled 2031-07-[address] [facility] 00:00:00 [facility] colon (procedure) [code = 108772140] Future Scheduled 2031-07-[address] [facility] 00[facility]00:00 [facility] colon (procedure) [code = 587427553] Future Scheduled 2031-07-[address] [facility] 00:00:00 [facility] colon (procedure) [code = [id number]] Future Scheduled 2031-07-[address] [facility] 00:00:00 [facility] colon (procedure) [code = 242078478] Future Scheduled 2031-07-[address] [facility] 00:00:00 [facility] colon (procedure) [code = 877354769] Future Scheduled 2031-07-[address] [facility] 00:00:00 [facility] colon (procedure) [code = 526529982] Future Scheduled 2031-07-[address] [facility] 00:00:00 [facility] colon (procedure) [code = 353213725] Future Scheduled 2031-07-[address] [facility] 00:00:00 [facility] colon (procedure) [code = 663353248] Future Scheduled 2031-07-[address] [facility] 00:00:00 [facility] colon (procedure) [code = 825568066] Future Scheduled 2031-07-[address] [facility] 00:00:00 [facility] colon (procedure) [code = 269785754] Future Scheduled 2031-07-[address] [facility] 00:00:00 [facility] colon (procedure) [code = 522882122] Future Scheduled 2031-07-[address] [facility] 00:00:00 [facility] colon (procedure) [code = 806137919] Future Scheduled 2031-07-[address] [facility] 00:00:00 [facility] colon (procedure) [code = 546985410] Future Scheduled 2031-07-[address] [facility] 00:00:00 [facility] colon (procedure) [code = 789113325] Future Scheduled 2031-07-[address] [facility] 00:00:00 [facility] colon (procedure) [code = 188146459] Future Scheduled 2031-07-[address] 00:00:00 malignant [facility] colon (procedure) [code = 265733031] Future Scheduled 2031-07-[address] 00:00:00 malignant [facility] colon (procedure) [code = 733091073] Future Scheduled 2031-07-[address] [address] [facility] 00:00:00 malignant neoplasm of [facility] Center colon (procedure) [code = [id number]] Future Scheduled 2031-07-[address] [facility] colon (procedure) [code = 376560963] Future Scheduled 2031-07-[address] [facility]:00 [facility] colon (procedure) [code = 036549821] Future Scheduled 2031-07-[address] [facility]:00 [facility] colon (procedure) [code = 213196486] Future Scheduled 2031-07-[address] [facility]:00 [facility] colon (procedure) [code = 191054124] Future Scheduled 2031-07-[address] [facility] colon (procedure) [code = 780653060] Future Scheduled 2031-07-[address] [facility]:00:00 [facility] colon (procedure) [code = 831606423] Future Scheduled 2031-07-[address] [facility]:00:00 [facility] colon (procedure) [code = 419770602] Future Scheduled 2023-04-[address] [facility]:00:00 [facility] cervix (procedure) [code = 678402394] Future Scheduled 2023-04-[address] [facility] 00:00:00 [facility] cervix (procedure) [code = 988735492] Future Scheduled 2023-04-[address] [facility] 00:00:00 [facility] cervix (procedure) [code = 438607202] Future Scheduled 2023-04-[address] [facility] 00:00:00 [facility] cervix (procedure) [code = 977779586] Future Scheduled 2023-04-[address] [facility] 00:00:00 [facility] cervix (procedure) [code = 213125040] Future Scheduled 2023-04-[address] [facility] 00:00:00 [facility] cervix (procedure) [code = 692274998] Future Scheduled 2023-04-[address] [facility] 00:00:00 [facility] cervix (procedure) [code = 374728366] Future Scheduled 2023-04-[address] [facility] 00:00:00 [facility] cervix (procedure) [code = 237773853] Future Scheduled 2023-04-[address] [facility] 00:00:00 [facility] cervix (procedure) [code = 296956414] Future Scheduled 2023-04-[address] [facility] 00:00:00 [facility] cervix (procedure) [code = 861893795] Future Scheduled 2023-04-[address] [facility] 00:00:00 [facility] cervix (procedure) [code = 665907788] Future Scheduled 2023-04-[address] [facility] 00:00:00 [facility] cervix (procedure) [code = 568447308] Future Scheduled 2023-04-[address] [facility] 00:00:00 [facility] cervix (procedure) [code = 289214826] Future Scheduled 2023-04-[address] [facility] 00:00:00 [facility] cervix (procedure) [code = 958380839] Future Scheduled 2023-04-[address] [facility] 00:00:00 [facility] cervix (procedure) [code = 849837836] Future Scheduled 2023-04-[address] [facility] 00:00:00 [facility] cervix (procedure) [code = 669951626] Future Scheduled 2023-04-[address] [facility] 00:00:00 [facility] cervix (procedure) [code = 854931042] Future Scheduled 2023-04-[address] [facility] 00:00:00 [facility] cervix (procedure) [code = 395324838] Future Scheduled 2023-04-[address] [facility] 00:00:00 [facility] cervix (procedure) [code = 772570675] Future Scheduled 2023-04-[address] [facility] 00:00:00 [facility] cervix (procedure) [code = 974045933] Future Scheduled 2023-04-[address] [facility] 00:00:00 [facility] cervix (procedure) [code = 723546181] Future Scheduled 2023-04-[address] [facility]:00:[facility] cervix (procedure) [code = 014262114] Future Scheduled 2022-12-[address] [facility] 00:00:00 (Season Ended) [code = [facility] Center INFLUENZA VACCINE (Season Ended)] Future Scheduled 2022-12-[address] [facility] 00:00:00 (Season Ended) [code = [facility] Center INFLUENZA VACCINE (Season Ended)] Future Scheduled 2022-10-[address] [address] [...] (2 - PCV)] Future Scheduled 2022-10-13 PNEUMOCOCCAL 65+ YRS [facility] 00:00:00 (2 - PCV) [code = Medical Ce nter PNEUMOCOCCAL 65+ YRS (2 - PCV)] Future Scheduled 2022-09-16 Screening for [facility] Test 14:03:46 malignant neoplasm of colon (procedure) [code = 970677463] Future Scheduled 2022-09-16 Screening [facility] 14:03:46 malignant neoplasm of colon (procedure) [code = 962074328] Future Scheduled 2022-09-16 COVID-19 VACCINE (#1) [facility] Test 14:03:46 [code = COVID-19 VACCINE (#1)] Future Scheduled 2022-09-16 Screening for [facility] 14:03:46 malignant neoplasm of cervix (procedure) [code = 826903488] Future Scheduled 2022-09-16 Screening for [facility] Test 14:03:46 malignant neoplasm of colon (procedure) [code = 993936108] Future Scheduled 2022-09-16 [facility]INES (1 [facility] 14:03:46 of 2) [code = SHINGLES VACCINES (1 of 2)] Future Scheduled 2022-09-16 Screening for [facility] Test 14:03:46 malignant neoplasm of colon (procedure) [code = 322243243] Future Scheduled 2022-09-16 Screening [facility] Test 14:03:46 malignant neoplasm of colon (procedure) [code = 760940231] Future Scheduled 2022-09-16 BREAST CANCER [facility] Test 14:03:46 SCREENING [code = BREAST CANCER SCREENING] Future Scheduled 2022-09-16 65+ PNEUMOCOCCAL [facility] Test 14:03:46 VACCINE (1 - PCV) [code = 65+ PNEUMOCOCCAL VACCINE (1 - PCV)] Future Scheduled 2022-09-16 INFLUENZA VACCINE [facility] Test 14:03:46 [code = INFLUENZA VACCINE] Future Scheduled 2022-09-09 Screening for [facility] Test 09:34:57 malignant neoplasm of colon (procedure) [code = 681820236] Future Scheduled 2022-09-09 Screening for [facility] Test 09:34:57 malignant neoplasm of colon (procedure) [code = 200263549] Future Scheduled 2022-09-09 COVID-19 VACCINE (#1) [facility] Test 09:34:57 [code = COVID-19 VACCINE (#1)] Future Scheduled 2022-09-09 Screening for [facility] Test 09:34:57 malignant neoplasm of cervix (procedure) [code = 492975197] Future Scheduled 2022-09-09 Screening for [facility] Test 09:34:57 malignant neoplasm of colon (procedure) [code = 704442456] Future Scheduled 2022-09-09 SHINGLES VACCINES (1 [facility] 09:34:57 of 2) [code = SHINGLES VACCINES (1 of 2)] Future Scheduled 2022-09-09 Screening for [facility] Test 09:34:57 malignant neoplasm of colon (procedure) [code = 443664678] Future Scheduled 2022-09-09 Screening for [facility] Test 09:34:57 malignant neoplasm of colon (procedure) [code = 952362490] Future Scheduled 2022-09-09 BREAST CANCER [facility] Test 09:34:57 SCREENING [code = BREAST CANCER SCREENING] Future Scheduled 2022-09-09 65+ PNEUMOCOCCAL [facility] Test 09:34:57 VACCINE (1 - PCV) [code = 65+ PNEUMOCOCCAL VACCINE (1 - PCV)] Future Scheduled 2022-09-09 [facility]ACCINE [facility] 09:34:57 [code = INFLUENZA VACCINE] [...] [id number])] Future Scheduled 2022-07-09 COVID-19 VACCINE (#1) [facility] Test 07:31:16 [code = COVID-19 VACCINE (#1)] Future Scheduled 2022-07-09 Screening for [facility] Test 07:31:16 malignant neoplasm of cervix (procedure) [code = 508693221] Future Scheduled 2022-07-09 COLONOSCOPY SCREENING [facility] Test 07:31:16 [code = COLONOSCOPY SCREENING] Future Scheduled 2022-07-09 SHINGLES VACCINES (1 Met [facility] Test 07:31:16 of 2) [code = SHINGLES VACCINES (1 of 2)] Future Scheduled 2022-07-09 BREAST CANCER [facility] Test 07:31:16 SCREENING [code = BREAST CANCER SCREENING] Future Scheduled 2022-07-09 INFLUENZA VACCINE [facility] Test 07:31:16 [code = INFLUENZA [...] RISK Medical C enter SCREENING] Future Scheduled 2022-03-26 COVID-19 VACCINE (#1) [facility] Test 05:32:52 [code = COVID-19 VACCINE (#1)] Future Scheduled 2022-03-26 Screening for [facility] Test 05:32:52 malignant neoplasm of cervix (procedure) [code = 673998272] Future Scheduled 2022-03-26 COLONOSCOPY SCREENING [facility] Test 05:32:52 [code = COLONOSCOPY SCREENING] Future Scheduled 2022-03-26 SHINGLES VACCINES (1 Met [facility] Test 05:32:52 of 2) [code = SHINGLES VACCINES (1 of 2)] Future Scheduled 2022-03-26 BREAST CANCER [facility] Test 05:32:52 SCREENING [code = BREAST CANCER SCREENING] Future Scheduled 2022-03-26 IN[facility]UENZA VACCINE [facility] 05:32:52 [code = INFLUENZA VACCINE] Future Scheduled 2022-03-26 COVID-19 [facility]ACCINE (#1) [facility] 05:32:52 [code = COVID-19 VACCINE (#1)] Future Scheduled 2022-03-26 Scre[facility] Test 05:32:52 malignant neoplasm of cervix (procedure) [code = 947331611] Future Scheduled 2022-03-26 [facility] 05:32:52 [code = COLONOSCOPY SCREENING] Future Scheduled 2022-03-26 SHINGLES VACCINES (1 Met [facility] Test 05:32:52 of 2) [code = SHINGLES VACCINES (1 of 2)] Future Scheduled 2022-03-26 BREAST CANCER [facility] Test 05:32:52 SCREENING [code = BREAST CANCER SCREENING] Future Scheduled 2022-03-26 INFLUENZA VACCINE [facility] 05:32:52 [code = INFLUENZA VACCINE] Future Scheduled 2022-03-26 COVID-19 VACCINE (#1) [facility] Test 05:32:52 [code = COVID-19 VACCINE (#1)] Future Scheduled 2022-03-26 Screening [facility] Test 05:32:52 malignant neoplasm of cervix (procedure) [code = 029955056] Future Scheduled 2022-03-26 COLONOSCOPY SCREENING [facility] Test 05:32:52 [code = COLONOSCOPY SCREENING] Future Scheduled 2022-03-26 SHINGLES VACCINES (1 Met [facility] Test 05:32:52 of 2) [code = SHINGLES VACCINES (1 of 2)] Future Scheduled 2022-03-26 BREAST CANCER [facility] Test 05:32:52 SCREENING [code = BREAST CANCER SCREENING] Future Scheduled 2022-03-26 INFLUENZA VACCINE [facility] 05:32:52 [code = INFLUENZA VACCINE] Future Scheduled 2022-03-26 COVID-19 [facility]INE (#1) [facility] 05:32:52 [code = COVID-19 VACCINE (#1)] Future Scheduled 2022-03-26 Scre[facility] Test 05:32:52 malignant neoplasm of cervix (procedure) [code = 804040814] Future Scheduled 2022-03-26 COLONOSCOPY SCREENING [facility] Test 05:32:52 [code = COLONOSCOPY SCREENING] Future Scheduled 2022-03-26 SHINGLES VACCINES (1 Met [facility] Test 05:32:52 of 2) [code = SHINGLES VACCINES (1 of 2)] Future Scheduled 2022-03-26 BREAST CANCER [facility] Test 05:32:52 SCREENING [code = BREAST CANCER SCREENING] Future Scheduled 2022-03-26 INFLUENZA VACCINE [facility] Test 05:32:52 [code = INFLUENZA VACCINE] Future Scheduled 2022-02-05 HEPATITIS B VACCINES Met [facility] Test 07:30:57 (1 of 3 - 3-dose series) [code = HEPATITIS B VACCINES (1 of 3 - 3-dose series)] Future Scheduled 2022-02-05 COVID-19 VACCINE (#1) [facility] Test 07:30:57 [code = COVID-19 VACCINE (#1)] Future Scheduled 2022-02-05 Screening for [facility] Test 07:30:57 malignant neoplasm of cervix (procedure) [code = 400225982] Future Scheduled 2022-02-05 COLONOSCOPY SCREENING [facility] Test 07:30:57 [code = COLONOSCOPY SCREENING] Future Scheduled 2022-02-05 SHINGLES VACCINES (1 Met [facility] Test 07:30:57 of 2) [code = SHINGLES VACCINES (1 of 2)] Future Scheduled 2022-02-05 BREAST CANCER [facility] Test 07:30:57 SCREENING [code = BREAST CANCER SCREENING] Future Scheduled 2022-02-05 INFLUENZA VACCINE [facility] Test 07:30:57 [code = INFLUENZA VACCINE] Future Scheduled 2021-12-11 HEPATITIS B VACCINES Met [facility] Test 12:22:17 (1 of 3 - 3-dose series) [code = HEPATITIS B VACCINES (1 of 3 - 3-dose series)] Future Scheduled 2021-12-11 COVID-19 VACCINE (#1) [facility] Test 12:22:17 [code = COVID-19 VACCINE (#1)] Future Scheduled 2021-12-11 Screening for [facility] Test 12:22:17 malignant neoplasm of cervix (procedure) [code = 543451220] Future Scheduled 2021-12-11 COLONOSCOPY SCREENING [facility] Test 12:22:17 [code = COLONOSCOPY SCREENING] Future Scheduled 2021-12-11 SHINGLES VACCINES (1 Met [facility] Test 12:22:17 of 2) [code = SHINGLES VACCINES (1 of 2)] Future Scheduled 2021-12-11 BREAST CANCER [facility] Test 12:22:17 SCREENING [code = BREAST CANCER SCREENING] Future Scheduled 2021-12-11 INFLUENZA VACCINE Method [facility] Test 12:22:17 [code = INFLUENZA VACCINE] Future Scheduled 2021-12-11 HEPATITIS B VACCINES Met [facility] Test 12:22:17 (1 of 3 - 3-dose series) [code = HEPATITIS B VACCINES (1 of 3 - 3-dose series)] Future Scheduled 2021-12-11 COVID-19 VACCINE (#1) [facility] Test 12:22:17 [code = COVID-19 VACCINE (#1)] Future Scheduled 2021-12-11 Screening for [facility] Test 12:22:17 malignant neoplasm of cervix (procedure) [code = 511425343] Future Scheduled 2021-12-11 COLONOSCOPY SCREENING [facility] Test 12:22:17 [code = COLONOSCOPY SCREENING] Future Scheduled 2021-12-11 SHINGLES VACCINES (1 Met [facility] Test 12:22:17 of 2) [code = SHINGLES VACCINES (1 of 2)] Future Scheduled 2021-12-11 BREAST CANCER [facility] Test 12:22:17 SCREENING [code = BREAST CANCER SCREENING] Future Scheduled 2021-12-11 INFLUENZA VACCINE Method [facility] Test 12:22:17 [code = INFLUENZA VACCINE] Future Scheduled 2021-12-11 HEPATITIS B VACCINES Met [facility] Test 12:22:17 (1 of 3 - 3-dose series) [code = HEPATITIS B VACCINES (1 of 3 - 3-dose series)] Future Scheduled 2021-12-11 COVID-19 VACCINE (#1) [facility] Test 12:22:17 [code = COVID-19 VACCINE (#1)] Future Scheduled 2021-12-11 Screening for [facility] Test 12:22:17 malignant neoplasm of cervix (procedure) [code = 410625260] Future Scheduled 2021-12-11 COLONOSCOPY SCREENING [facility] Test 12:22:17 [code = COLONOSCOPY SCREENING] Future Scheduled 2021-12-11 SHINGLES VACCINES (1 Met [facility] Test 12:22:17 of 2) [code = SHINGLES VACCINES (1 of 2)] Future Scheduled 2021-12-11 BREAST CANCER [facility] Test 12:22:17 SCREENING [code = BREAST CANCER SCREENING] Future Scheduled 2021-12-11 INFLUENZA VACCINE Method [facility] Test 12:22:17 [code = INFLUENZA VACCINE] Future Scheduled 2021-12-11 HEPATITIS B VACCINES Met [facility] Test 12:22:17 (1 of 3 - 3-dose series) [code = HEPATITIS B VACCINES (1 of 3 - 3-dose series)] Future Scheduled 2021-12-11 COVID-19 VACCINE (#1) [facility] Test 12:22:17 [code = COVID-19 VACCINE (#1)] Future Scheduled 2021-12-11 Screening for [facility] Test 12:22:17 malignant neoplasm of cervix (procedure) [code = 521075184] Future Scheduled 2021-12-11 COLONOSCOPY SCREENING [facility] Test 12:22:17 [code = COLONOSCOPY SCREENING] Future Scheduled 2021-12-11 SHINGLES VACCINES (1 Met [facility] Test 12:22:17 of 2) [code = SHINGLES VACCINES (1 of 2)] Future Scheduled 2021-12-11 BREAST CANCER [facility] Test 12:22:17 SCREENING [code = BREAST CANCER SCREENING] Future Scheduled 2021-12-11 INFLUENZA VACCINE Method [facility] Test 12:22:17 [code = INFLUENZA VACCINE] Future [...] Future Scheduled 2021-12-02 HEPATITIS B VACCINES Met [facility] Test 19:59:35 (1 of 3 - 3-dose series) [code = HEPATITIS B VACCINES (1 of 3 - 3-dose series)] Future Scheduled 2021-12-02 COVID-19 VACCINE (#1) [facility] Test 19:59:35 [code = COVID-19 VACCINE (#1)] Future Scheduled 2021-12-02 Screening for [facility] Test 19:59:35 malignant neoplasm of cervix (procedure) [code = 778683247] Future Scheduled 2021-12-02 COLONOSCOPY SCREENING [facility] Test 19:59:35 [code = COLONOSCOPY SCREENING] Future Scheduled 2021-12-02 SHINGLES VACCINES (1 Met [facility] Test 19:59:35 of 2) [code = SHINGLES VACCINES (1 of 2)] Future Scheduled 2021-12-02 BREAST CANCER [facility] Test 19:59:35 SCREENING [code = BREAST CANCER SCREENING] Future Scheduled 2021-12-02 INFLUENZA VACCINE [facility] Test 19:59:35 [code = INFLUENZA VACCINE] Future Scheduled 2021-07-08 COVID-19 VACCINE (1) Met [facility] Test 18:18:56 [code = COVID-19 VACCINE (1)] Future Scheduled 2021-07-08 DIABETES: RETINAL EYE [facility] Test 18:18:56 EXAM [code = DIABETES: RETINAL EYE EXAM] Future Scheduled 2021-07-08 DIABETIC FOOT EXAM [facility] Test 18:18:56 [code = DIABETIC FOOT EXAM] Future Scheduled 2021-07-08 [facility] 18:18:56 [code = COLONOSCOPY SCREENING] Future Scheduled 2021-07-08 SHINGLES VACCINES (#1) [facility] Test 18:18:56 [code = SHINGLES VACCINES (#1)] Future Scheduled 2021-07-08 BREAST CANCER [facility] Test 18:18:56 SCREENING [code = BREAST CANCER SCREENING] Future Scheduled 2021-07-08 Screening [facility] Test 18:18:56 malignant neoplasm of cervix (procedure) [code = 792862268] Future Scheduled 2021-07-08 IN[facility]UENZA VACCINE [facility] 18:18:56 [code = INFLUENZA VACCINE] Future Scheduled 2021-06-26 COVID-19 VACCINE (1) [facility] Test 14:10:19 [code = COVID-19 VACCINE (1)] Future Scheduled 2021-06-26 DIABETES: RETINAL EYE [facility] Test 14:10:19 EXAM [code = DIABETES: RETINAL EYE EXAM] Future Scheduled 2021-06-26 DIABETIC FOOT EXAM [facility] Test 14:10:19 [code = DIABETIC FOOT EXAM] Future Scheduled 2021-06-26 COLONOSCOPY SCREENING [facility] Test 14:10:19 [code = COLONOSCOPY SCREENING] Future Scheduled 2021-06-26 SHINGLES VACCINES (#1) [facility] Test 14:10:19 [code = SHINGLES VACCINES (#1)] Future Scheduled 2021-06-26 BREAST CANCER [facility] Test 14:10:19 SCREENING [code = BREAST CANCER SCREENING] Future Scheduled 2021-06-26 Scre[facility] Test 14:10:19 malignant neoplasm of cervix (procedure) [code = 512053110] Future Scheduled 2021-06-26 INFLUENZA VACCINE [facility] 14:10:19 [code = INFLUENZA VACCINE] Future Scheduled 2021-06-26 COVID-19 VACCINE (1) [facility] Test 14:10:19 [code = COVID-19 VACCINE (1)] Future Scheduled 2021-06-26 DIABETES: RETINAL EYE [facility] Test 14:10:19 EXAM [code = DIABETES: RETINAL EYE EXAM] Future Scheduled 2021-06-26 DIABETIC FOOT EXAM [facility] Test 14:10:19 [code = DIABETIC FOOT EXAM] Future Scheduled 2021-06-26 COLONOSCOPY SCREENING [facility] Test 14:10:19 [code = COLONOSCOPY SCREENING] Future Scheduled 2021-06-26 SHINGLES VACCINES (#1) [facility] Test 14:10:19 [code = SHINGLES VACCINES (#1)] Future Scheduled 2021-06-26 BREAST CANCER [facility] Test 14:10:19 SCREENING [code = BREAST CANCER SCREENING] Future Scheduled 2021-06-26 Scre[facility] Test 14:10:19 malignant neoplasm of cervix (procedure) [code = 940377565] Future Scheduled 2021-06-26 INFLUENZA VACCINE [facility] 14:10:19 [code = INFLUENZA VACCINE] Future Scheduled 2021-06-26 COVID-19 VACCINE (1) [facility] Test 14:10:19 [code = COVID-19 VACCINE (1)] Future Scheduled 2021-06-26 DIABETES: RETINAL EYE [facility] Test 14:10:19 EXAM [code = DIABETES: RETINAL EYE EXAM] Future Scheduled 2021-06-26 DIABETIC FOOT EXAM [facility] Test 14:10:19 [code = DIABETIC FOOT EXAM] Future Scheduled 2021-06-26 COLONOSCOPY SCREENING [facility] Test 14:10:19 [code = COLONOSCOPY SCREENING] Future Scheduled 2021-06-26 SHINGLES VACCINES (#1) [facility] Test 14:10:19 [code = SHINGLES VACCINES (#1)] Future Scheduled 2021-06-26 BREAST CANCER [facility] Test 14:10:19 SCREENING [code = BREAST CANCER SCREENING] Future Scheduled 2021-06-26 Scre[facility] Test 14:10:19 malignant neoplasm of cervix (procedure) [code = 864468760] Future Scheduled 2021-06-26 INFLUENZA VACCINE [facility] 14:10:19 [code = INFLUENZA VACCINE] Future Scheduled 2021-06-26 COVID-19 VACCINE (1) [facility] Test 14:10:19 [code = COVID-19 VACCINE (1)] Future Scheduled 2021-06-26 DIABETES: RETINAL EYE [facility] Test 14:10:19 EXAM [code = DIABETES: RETINAL EYE EXAM] Future Scheduled 2021-06-26 DIABETIC FOOT EXAM [facility] Test 14:10:19 [code = DIABETIC FOOT EXAM] Future Scheduled 2021-06-26 COLONOSCOPY SCREENING [facility] Test 14:10:19 [code = COLONOSCOPY SCREENING] Future Scheduled 2021-06-26 SHINGLES VACCINES (#1) [facility] Test 14:10:19 [code = SHINGLES VACCINES (#1)] Future Scheduled 2021-06-26 BREAST CANCER [facility] Test 14:10:19 SCREENING [code = BREAST CANCER SCREENING] Future Scheduled 2021-06-26 Scre[facility] Test 14:10:19 malignant neoplasm of cervix (procedure) [code = 483296896] Future Scheduled 2021-06-26 INFLUENZA VACCINE [facility] 14:10:19 [code = INFLUENZA VACCINE] Future Scheduled 2021-06-26 COVID-19 VACCINE (1) [facility] Test 14:10:19 [code = COVID-19 VACCINE (1)] Future Scheduled 2021-06-26 DIABETES: RETINAL EYE [facility] Test 14:10:19 EXAM [code = DIABETES: RETINAL EYE EXAM] Future Scheduled 2021-06-26 DIABETIC FOOT EXAM [facility] Test 14:10:19 [code = DIABETIC FOOT EXAM] Future Scheduled 2021-06-26 COLONOSCOPY SCREENING [facility] Test 14:10:19 [code = COLONOSCOPY SCREENING] Future Scheduled 2021-06-26 SHINGLES VACCINES (#1) [facility] Test 14:10:19 [code = SHINGLES VACCINES (#1)] Future Scheduled 2021-06-26 BREAST CANCER [facility] Test 14:10:19 SCREENING [code = BREAST CANCER SCREENING] Future Scheduled 2021-06-26 Scre[facility] Test 14:10:19 malignant neoplasm of cervix (procedure) [code = 226423812] Future Scheduled 2021-06-26 IN[facility]ZA VACCINE [facility] 14:10:19 [code = INFLUENZA VACCINE] Future Scheduled 2021-06-26 COVID-19 VACCINE (1) [facility] Test 14:10:19 [code = COVID-19 VACCINE (1)] Future Scheduled 2021-06-26 DIABETES: RETINAL EYE [facility] Test 14:10:19 EXAM [code = DIABETES: RETINAL EYE EXAM] Future Scheduled 2021-06-26 DIABETIC FOOT EXAM [facility] Test 14:10:19 [code = DIABETIC FOOT EXAM] Future Scheduled 2021-06-26 COLONOSCOPY SCREENING [facility] Test 14:10:19 [code = COLONOSCOPY SCREENING] Future Scheduled 2021-06-26 SHINGLES VACCINES (#1) [facility] Test 14:10:19 [code = SHINGLES VACCINES (#1)] Future Scheduled 2021-06-26 BREAST CANCER [facility] Test 14:10:19 SCREENING [code = BREAST CANCER SCREENING] Future Scheduled 2021-06-26 Scre[facility] Test 14:10:19 malignant neoplasm of cervix (procedure) [code = [id number]] Future Scheduled 2021-06-26 [facility]ACCINE [facility] 14:10:19 [code = INFLUENZA VACCINE] Future Scheduled 2021-06-26 COVID-19 VACCINE (1) Met [facility] Test 14:10:19 [code = COVID-19 VACCINE (1)] Future Scheduled 2021-06-26 DIABETES: RETINAL EYE [facility] Test 14:10:19 EXAM [code = DIABETES: RETINAL EYE EXAM] Future Scheduled 2021-06-26 DIABETIC FOOT EXAM [facility] Test 14:10:19 [code = DIABETIC FOOT EXAM] Future Scheduled 2021-06-26 COLONOSCOPY SCREENING [facility] Test 14:10:19 [code = COLONOSCOPY SCREENING] Future Scheduled 2021-06-26 SHINGLES VACCINES (#1) [facility] Test 14:10:19 [code = SHINGLES VACCINES (#1)] Future Scheduled 2021-06-26 BREAST CANCER [facility] Test 14:10:19 SCREENING [code = BREAST CANCER SCREENING] Future Scheduled 2021-06-26 [facility] Test 14:10:19 malignant neoplasm of cervix (procedure) [code = [id number]] Future Scheduled 2021-06-26 [facility]ACCINE [facility] 14:10:19 [code = INFLUENZA VACCINE] Future Scheduled 2021-06-26 COVID-19 VACCINE (1) Met [facility] Test 14:10:19 [code = COVID-19 VACCINE (1)] Future Scheduled 2021-06-26 DIABETES: RETINAL EYE [facility] Test 14:10:19 EXAM [code = DIABETES: RETINAL EYE EXAM] Future Scheduled 2021-06-26 DIABETIC FOOT EXAM [facility] Test 14:10:19 [code = DIABETIC FOOT EXAM] Future Scheduled 2021-06-26 COLONOSCOPY SCREENING [facility] Test 14:10:19 [code = COLONOSCOPY SCREENING] Future Scheduled 2021-06-26 SHINGLES VACCINES (#1) [facility] Test 14:10:19 [code = SHINGLES VACCINES (#1)] Future Scheduled 2021-06-26 BREAST CANCER [facility] Test 14:10:19 SCREENING [code = BREAST CANCER SCREENING] Future Scheduled 2021-06-26 [facility] Test 14:10:19 malignant neoplasm of cervix (procedure) [code = [id number]] Future Scheduled 2021-06-26 [facility]ZA VACCINE [facility] 14:10:19 [code = INFLUENZA VACCINE] Future Scheduled 2021-06-26 COVID-19 VACCINE (1) [facility] Test 14:10:19 [code = COVID-19 VACCINE (1)] Future Scheduled 2021-06-26 DIABETES: RETINAL EYE [facility] Test 14:10:19 EXAM [code = DIABETES: RETINAL EYE EXAM] Future Scheduled 2021-06-26 DIABETIC FOOT EXAM [facility] Test 14:10:19 [code = DIABETIC FOOT EXAM] Future Scheduled 2021-06-26 COLONOSCOPY SCREENING [facility] Test 14:10:19 [code = COLONOSCOPY SCREENING] Future Scheduled 2021-06-26 SHINGLES VACCINES (#1) [facility] Test 14:10:19 [code = SHINGLES VACCINES (#1)] Future Scheduled 2021-06-26 [facility] 14:10:19 SCREENING [code = BREAST CANCER SCREENING] Future Scheduled 2021-06-26 [facility] Test 14:10:19 malignant neoplasm of cervix (procedure) [code = [id number]] Future Scheduled 2021-06-26 IN[facility]ZA VACCINE [facility] 14:10:19 [code = INFLUENZA VACCINE] Future Scheduled 2021-06-[address] [facility] Test 00:00:00 (procedure) [code = [facility] [id number]] Future Scheduled 2021-06-[address] [facility] Test 00:00:00 (procedure) [code = [facility] [id number]] Future Scheduled 2021-06-[address] [facility] Test 00:00:00 (procedure) [code = [facility] [id number]] Future Scheduled 2021-06-[address] [facility] Test 00:00:00 (procedure) [code = [facility] [id number]] Future Scheduled 2021-06-[address] [facility] Test 00:00:00 (procedure) [code = [facility] [id number]] Future Scheduled 2021-06-[address] [facility] Test 00:00:00 (procedure) [code = [facility] [id number]] Future Scheduled 2021-06-[address] [facility] Test 00:00:00 (procedure) [code = [facility] [id number]] Future Scheduled 2021-06-[address] [facility] Test 00:00:00 (procedure) [code = [facility] [id number]] Future Scheduled 2021-06-[address] [facility] Test 00:00:00 (procedure) [code = [facility] [id number]] Future Scheduled 2021-06-[address] [facility] Test 00:00:00 (procedure) [code = [facility] [id number]] Future Scheduled 2021-06-[address] [facility] Test 00:00:00 (procedure) [code = [facility] 70403783] Future Scheduled 2021-06-[address] [facility] Test 00:00:00 (procedure) [code = [facility] [id number]] Future Scheduled 2021-06-[address] [facility] Test 00:00:00 (procedure) [code = [facility] [id number]] Future Scheduled 2021-06-[address] [facility] Test 00:00:00 (procedure) [code = [facility] [id number]] Future Scheduled 2021-06-[address] [facility] Test 00:00:00 (procedure) [code = [facility] [id number]] Future Scheduled 2021-06-[address] [facility] Test 00:00:00 (procedure) [code = [facility] 85854472] Future Scheduled 2021-06-[address] [facility] Test 00:00:00 (procedure) [code = [facility] [id number]] Future Scheduled 2021-06-[address] [facility] Test 00:00:00 (procedure) [code = [facility] Center [id number]] Future Scheduled 2021-06-[address] [facility] Test 00:00:00 (procedure) [code = [facility] Center [id number]] Future Scheduled 2021-06-[address] [facility] Test 00:00:00 (procedure) [code = [facility] Center 54087242] Future Scheduled 2021-06-[address] [facility] Test 00:00:00 (procedure) [code = [facility] Center 52591132] Future Scheduled 2021-06-[address] [facility] Test 00:00:00 (procedure) [code = Medical Center [id number]] Future Scheduled 2021-06-10 COVID-19 VACCINE (1) Met [facility] Test 17:58:22 [code = COVID-19 VACCINE (1)] Future Scheduled 2021-06-10 DIABETES: RETINAL EYE [facility] Test 17:58:22 EXAM [code = DIABETES: RETINAL EYE EXAM] Future Scheduled 2021-06-10 DIABETIC FOOT EXAM [facility] Test 17:58:22 [code = DIABETIC FOOT EXAM] Future Scheduled 2021-06-10 COLONOSCOPY SCREENING [facility] Test 17:58:22 [code = COLONOSCOPY SCREENING] Future Scheduled 2021-06-10 SHINGLES VACCINES (#1) [facility] Test 17:58:22 [code = SHINGLES VACCINES (#1)] Future Scheduled 2021-06-10 BREAST CANCER [facility] Test 17:58:22 SCREENING [code = BREAST CANCER SCREENING] Future Scheduled 2021-06-10 Screening for [facility] Test 17:58:22 malignant neoplasm of cervix (procedure) [code = 607697964] Future Scheduled 2021-06-10 INFLUENZA VACCINE [facility] 17:58:22 [code = INFLUENZA VACCINE] Future Scheduled 2021-05-12 [facility]19 [facility] 00:12:28 [code = COVID-19 VACCINE (1)] Future Scheduled 2021-05-12 DIABETES: RETINAL EYE [facility] Test 00:12:28 EXAM [code = DIABETES: RETINAL EYE EXAM] Future Scheduled 2021-05-12 [facility] Test 00:12:28 [code = DIABETIC FOOT EXAM] Future Scheduled 2021-05-12 COLONOSCOPY SCREENING [facility] Test 00:12:28 [code = COLONOSCOPY SCREENING] Future Scheduled 2021-05-12 SHINGLES VACCINES (#1) [facility] 00:12:28 [code = SHINGLES VACCINES (#1)] Future Scheduled 2021-05-12 BREAST CANCER [facility] Test 00:12:28 SCREENING [code = BREAST CANCER SCREENING] Future Scheduled 2021-05-12 Screening for [facility] Test 00:12:28 malignant neoplasm of cervix (procedure) [code = 272582672] Future Scheduled 2021-05-12 INFLUENZA VACCINE Method ist [...] Future Scheduled 2021-02-11 COVID-19 VACCINE (1) Met [facility] Test 13:55:42 [code = COVID-19 VACCINE (1)] Future Scheduled 2021-02-11 DIABETES: RETINAL EYE [facility] Test 13:55:42 EXAM [code = DIABETES: RETINAL EYE EXAM] Future Scheduled 2021-02-11 DIABETIC FOOT EXAM [facility] Test 13:55:42 [code = DIABETIC FOOT EXAM] Future Scheduled 2021-02-11 COLONOSCOPY SCREENING [facility] Test 13:55:42 [code = COLONOSCOPY SCREENING] Future Scheduled 2021-02-11 SHINGLES VACCINES (#1) [facility] Test 13:55:42 [code = SHINGLES VACCINES (#1)] Future Scheduled 2021-02-11 BREAST CANCER [facility] Test 13:55:42 SCREENING [code = BREAST CANCER SCREENING] Future Scheduled 2021-02-11 Screening for [facility] Test 13:55:42 malignant neoplasm of cervix (procedure) [code = 238600013] Future Scheduled 2021-02-11 INFLUENZA VACCINE [facility] Test 13:55:42 [code = INFLUENZA [...] 00:00:00 measurement Medical Center (procedure) [code = 82383919] Future Scheduled 2020-08-[address] [facility] (procedure) [code = 91857920] Future Scheduled 2020-08-[address] [facility] measurement [facility] (procedure) [code = 00119534] Future Scheduled 2020-08-[address] [facility] 00[facility] measurement [facility] (procedure) [code = 32693573] Future Scheduled 2020-08-[address] [facility] 00[facility]:00 measurement [facility] (procedure) [code = 08263973] Future Scheduled 2020-08-[address] [facility] 00:[facility]:00 measurement [facility] (procedure) [code = 11429295] Future Scheduled 2020-08-[address] [facility] 00:00:00 measurement Medical Center (procedure) [code = 49771937] Future Scheduled 2020-08-[address] [facility] 00:00:00 measurement Medical Center (procedure) [code = 89072384] Future Scheduled 2020-08-[address] [facility] 00:00:00 measurement Medical Center (procedure) [code = 85568027] Future Scheduled 2020-08-[address] [facility] 00:00:00 measurement Medical Center (procedure) [code = 93127152] Future Scheduled 2020-08-[address] [facility] 00:00:00 measurement Medical Center (procedure) [code = 89740855] Future Scheduled 2020-08-[address] [facility] 00:00:00 measurement [facility] (procedure) [code = 06366668] Future Scheduled 2020-08-[address] [facility] 00:00:00 measurement Medical Center (procedure) [code = 13306673] Future Scheduled 2020-08-[address] [facility] 00:00:00 measurement [facility] (procedure) [code = 08453410] Future Scheduled 2020-08-[address] [facility] 00:00:00 measurement [facility] (procedure) [code = 63355671] Future Scheduled 2020-08-[address] [facility] 00:00:00 measurement Medical Center (procedure) [code = 71819206] Future Scheduled 2020-08-[address] [facility] 00:00:00 measurement [facility] (procedure) [code = 08311678] Future Scheduled 2020-08-[address] [facility] 00:00:00 measurement Medical Center (procedure) [code = 52532901] Future Scheduled 2020-08-[address] [facility] 00:00:00 measurement [facility] (procedure) [code = 83437618] Future Scheduled 2020-08-[address] [facility] 00:00:00 measurement Medical Center (procedure) [code = 69049729] Future Scheduled 2020-08-[address] [facility] 00:00:00 measurement Medical Center (procedure) [code = 17180831] Future Scheduled 2020-08-[address] [facility] 00:00:00 measurement Medical Center (procedure) [code = 80530099] Future Scheduled 2019-11-[address] [facility] breast (procedure) [code = 859087245] Future Scheduled 2019-11-[address] [facility] 00:00:00 [facility] breast (procedure) [code = 428743811] Future Scheduled 2019-11-[address] [facility] 00:00:00 [facility] breast (procedure) [code = 841697015] Future Scheduled 2019-11-[address] [facility] 00:00:00 [facility] breast (procedure) [code = 010468317] Future Scheduled 2019-11-[address] [facility] 00:00:00 [facility] breast (procedure) [code = 495461627] Future Scheduled 2019-11-[address] [facility] 00:00:00 [facility] breast (procedure) [code = 956881983] Future Scheduled 2019-11-[address] [facility] 00:00:00 [facility] breast (procedure) [code = 236806531] Future Scheduled 2019-11-[address] [facility] 00:00:00 [facility] breast (procedure) [code = 176788371] Future Scheduled 2019-11-[address] [facility] 00:00:00 [facility] breast (procedure) [code = 846858674] Future Scheduled 2019-11-[address] [facility] 00:00:00 [facility] breast (procedure) [code = 818042471] Future Scheduled 2019-11-[address] [facility] 00:00:00 [facility] breast (procedure) [code = 726486347] Future Scheduled 2019-11-[address] [facility] 00:00:00 [facility] breast (procedure) [code = 498487626] Future Scheduled 2019-11-[address] [facility] 00:00:00 [facility] breast (procedure) [code = 338690412] Future Scheduled 2019-11-[address] [facility] 00:00:00 [facility] breast (procedure) [code = 114841066] Future Scheduled 2019-11-[address] [facility] 00:00:00 [facility] breast (procedure) [code = 008475523] Future Scheduled 2019-11-[address] [facility] 00:00:00 [facility] breast (procedure) [code = 655951999] Future Scheduled 2019-11-[address] [facility] 00:00:00 [facility] breast (procedure) [code = 698990416] Future Scheduled 2019-11-[address] [facility] 00:00:00 [facility] breast (procedure) [code = 936703804] Future Scheduled 2019-11-[address] [facility] 00:00:00 [facility] breast (procedure) [code = 492884285] Future Scheduled 2019-11-[address] [facility] 00:00:00 [facility] breast (procedure) [code = 640511958] Future Scheduled 2019-11-[address] [facility] 00:00:00 [facility] breast (procedure) [code = 116048081] Future Scheduled 2019-11-[address] [facility] 00:00:00 malignant [facility] of [facility] breast (procedure) [code = 544214769] Future Scheduled 2018-06-[address] [...] 00:00:00 examination Medical Center (regime/therapy) [code = 400600523] Future Scheduled 1967-09-05 Urine screening for [facility] Test 00:00:00 protein (procedure) Medical Center [code = 616036689] Future Scheduled 1967-09-[address] DIAB[address] EYE EXAM [facility] Test 00:00:00 [code = DIABETIC EYE Medical Center EXAM] Future Scheduled 1967-09-[address] [facility] 00:00:00 examination Medical Center (regime/therapy) [code = 005212004] Future Scheduled 1967-09-05 Urine screening for [facility] Test 00:00:00 protein (procedure) Medical Center [code = 553078659] Future Scheduled 1967-09-[address] DIAB[address] EYE EXAM [facility] Test 00:00:00 [code = DIABETIC EYE Medical Center EXAM] Future Scheduled 1967-09-[address] [facility] 00:00:00 examination Medical Center (regime/therapy) [code = 049426427] Future Scheduled 1967-09-05 Urine screening for [facility] Test 00:00:00 protein (procedure) Medical Center [code = 332195337] Future Scheduled 1967-09-[address] DIAB[address]IC EYE EXAM [facility] Test 00:00:00 [code = DIABETIC EYE Medical Center EXAM] Future Scheduled 1967-09-[address] [facility] 00:00:00 examination Medical Center (regime/therapy) [code = 540372945] Future Scheduled 1967-09-05 Urine screening for [facility] 00:00:00 protein (procedure) Medical Center [code = 587814338] Future Scheduled 1967-09-[address] DIAB[address] EYE EXAM [facility] 00:00:00 [code = DIABETIC EYE Medical Center EXAM] Future Scheduled 1967-09-[address] [facility] 00:00:00 examination Medical Center (regime/therapy) [code = 201083462] Future Scheduled 1967-09-05 Urine screening for [facility] 00:00:00 protein (procedure) Medical Center [code = 935238147] Future Scheduled 1967-09-[address] DIAB[address] EYE EXAM [facility] Test 00:00:00 [code = DIABETIC EYE Medical Center EXAM] Future Scheduled 1967-09-[address] [facility] 00:00:00 examination Medical Center (regime/therapy) [code = 739735489] Future Scheduled 1967-09-05 Urine screening for [facility] 00:00:00 protein (procedure) Medical Center [code = 266106578] Future Scheduled 1967-09-[address] DIAB[address] EYE EXAM [facility] 00:00:00 [code = DIABETIC EYE Medical Center EXAM] Future Scheduled 1967-09-[address] [facility] 00:00:00 examination Medical Center (regime/therapy) [code = 894388555] Future Scheduled 1967-09-05 Urine screening for [facility] 00:00:00 protein (procedure) Medical Center [code = 018909243] Future Scheduled 1967-09-[address] DIAB[address] EYE EXAM [facility] 00:00:00 [code = DIABETIC EYE Medical Center EXAM] Future Scheduled 1967-09-[address] [facility] 00:00:00 examination Medical Center (regime/therapy) [code = 066513581] Future Scheduled 1967-09-05 Urine screening for [facility] 00:00:00 protein (procedure) Medical Center [code = 450933118] Future Scheduled 1967-09-05 DIABETIC EYE EXAM [facility] 00:00:00 [code = DIABETIC EYE Medical Center EXAM] Future Scheduled 1967-09-[address] [facility] 00:00:00 examination Medical Center (regime/therapy) [code = 823468674] Future Scheduled 1967-09-05 Urine screening for [facility] 00:00:00 protein (procedure) Medical Center [code = 589656577] Future Scheduled 1967-09-05 DIABETIC EYE EXAM [facility] 00:00:00 [code = DIABETIC EYE Medical Center EXAM] Future Scheduled 1967-09-[address] [facility] 00:00:00 examination Medical Center (regime/therapy) [code = 747880346] Future Scheduled 1967-09-05 Urine screening for [facility] 00:00:00 protein (procedure) Medical Center [code = 002078462] Future Scheduled 1967-09-05 DIABETIC EYE EXAM [facility] 00:00:00 [code = DIABETIC EYE Medical Center EXAM] Future Scheduled 1967-09-05 Urine screening for [facility] Test 00:00:00 protein (procedure) Medical Center [code = 971484645] Future Scheduled 1967-09-05 DIABETIC EYE EXAM [facility] 00:00:00 [code = DIABETIC EYE Medical Center EXAM] Future Scheduled 1967-09-05 Urine screening for [facility] 00:00:00 protein (procedure) Medical Center [code = 203699752] Future Scheduled 1967-09-05 DIABETIC EYE EXAM [facility] 00:00:00 [code = DIABETIC EYE Medical Center EXAM] Future Scheduled 1967-09-05 Urine screening for [facility] Test 00:00:00 protein (procedure) Medical Center [code = 126786664] Future Scheduled 1967-09-05 DIABETIC EYE EXAM [facility] 00:00:00 [code = DIABETIC EYE Medical Center EXAM] Future Scheduled 1967-09-05 Urine screening for [facility] Test 00:00:00 protein (procedure) Medical Center [code = 641663948] Future Scheduled 1967-09-[address] DIAB[address] EYE EXAM [facility] 00:00:00 [code = DIABETIC EYE Medical Center EXAM] Future Scheduled 1967-09-05 Urine screening for [facility] Test 00:00:00 protein (procedure) Medical Center [code = 845214111] Future Scheduled 1967-09-05 DIABETIC EYE EXAM [facility] 00:00:00 [code = DIABETIC EYE Medical Center EXAM] Future Scheduled 1967-09-05 Urine screening for [facility] Test 00:00:00 protein (procedure) Medical Center [code = 732780680] Future Scheduled 1967-09-[address] DIABETIC EYE EXAM [facility] 00:00:00 [code = DIABETIC EYE Medical Center EXAM] Future Scheduled 1967-09-05 Urine screening for [facility] Test 00:00:00 protein (procedure) Medical Center [code = 830376402] Future Scheduled 1967-09-05 DIABETIC EYE EXAM [facility] 00:00:00 [code = DIABETIC EYE Medical Center EXAM] Future Scheduled 1967-09-05 Urine screening for [facility] Test 00:00:00 protein (procedure) Medical Center [code = 129052665] Future Scheduled 1967-09-05 DIABETIC EYE EXAM [facility] 00:00:00 [code = DIABETIC EYE Medical Center EXAM] Future Scheduled 1967-09-05 Urine screening for [facility] 00:00:00 protein (procedure) Medical Center [code = 167865642] Future Scheduled 1967-09-05 DIABETIC EYE EXAM [facility] 00:00:00 [code = DIABETIC EYE Medical Center EXAM] Future Scheduled 1967-09-05 Urine screening for [facility] 00:00:00 protein (procedure) Medical Center [code = 220604671] Future Scheduled 1967-09-05 DIABETIC EYE EXAM [facility] 00:00:00 [code = DIABETIC EYE Medical Center EXAM] Future Scheduled 1967-09-[address] [facility] 00:00:00 examination Medical Center (regime/therapy) [code = 528188996] Future Scheduled 1967-09-05 Urine screening for [facility] 00:00:00 protein (procedure) Medical Center [code = 626527316] Future Scheduled 1967-09-[address] DIABETIC EYE EXAM [facility] 00:00:00 [code = DIABETIC EYE Medical Center EXAM] Future Scheduled 1967-09-[address] [facility] 00:00:00 examination Medical Center (regime/therapy) [code = 280476477] Future Scheduled 1967-09-05 Urine screening for [facility] 00:00:00 protein (procedure) Medical Center [code = 753943539] Future Scheduled [address] [facility] 00:00:00 malignant [facility] of [facility] colon (procedure) [code = 730123974] Future Scheduled [address] [facility] 00:00:00 [facility] colon (procedure) [code = 214374879] Future Scheduled [address] [facility] 00:00:00 [facility] colon (procedure) [code = 830529552] Future Scheduled [address] [facility] 00:00:00 (combo) [code = CT Medical C enter Colonography (combo)] Future Scheduled [address] [facility] 00:00:00 [facility] colon (procedure) [code = 696953966] Future Scheduled [address] [facility] 00:00:00 [facility] colon (procedure) [code = 728761261] Future Scheduled [address] [facility] 00:00:00 [facility] colon (procedure) [code = 082233078] Future Scheduled [address] [facility] 00:00:00 [facility] colon (procedure) [code = 023504317] Future Scheduled 1957 Sigmoid[facility] [address] [facility] 00:00:00 (combo) [code = CT Medical C enter Colonography (combo)] Future Scheduled [address] [facility] 00:00:00 [facility] colon (procedure) [code = 782784327] Future Scheduled [address] [facility] 00:00:00 [facility] colon (procedure) [code = 573952326] Future Scheduled [address] [facility] colon (procedure) [code = 118049589] Future Scheduled [address] [facility] (procedure) [code = 771151609] Future Scheduled 1957 [facility] Future Scheduled [address] [facility] 00:[facility]:00 (combo) [code = CT Medical C enter Colonography (combo)] Future Scheduled [address] [facility] 00:[facility]:00 [facility] colon (procedure) [code = 995177584] Future Scheduled [address] [facility] 00:[facility] colon (procedure) [code = 197880182] Future Scheduled [address] [facility] 00:[facility] colon (procedure) [code = 368274873] Future Scheduled [address] [facility] 00:[facility] colon (procedure) [code = 232565954] Future Scheduled 1957 Sigmoidoscopy [facility]] [facility] Cent[facility] r Future Scheduled [address] [facility] 00:00:00 (combo) [code = CT Medical C enter Colonography (combo)] Future Scheduled [address] [facility] 00:[facility]:00 [facility] colon (procedure) [code = 364586956] Future Scheduled [address] [facility] 00:[facility]:00 [facility] colon (procedure) [code = 718093696] Future Scheduled [address] [facility] 00:[facility]:00 [facility] colon (procedure) [code = 731225786] Future Scheduled [address] [facility] 00:00:[facility] colon (procedure) [code = 114218343] Future Scheduled 1957 Sigmoidoscopy [facility]] [facility] Cent[facility] Future Scheduled [address] [facility] 00:00:00 (combo) [code = CT Medical C enter Colonography (combo)] Future Scheduled [address] [facility] 00:00:00 [facility] colon (procedure) [code = 954985322] Future Scheduled [address] [facility] 00:00:[facility] colon (procedure) [code = 848882361] Future Scheduled 1957 S[facility]oidoscopy [facility]] [facility] Cent[facility] r Future Scheduled [address] [facility] 00:00:00 (combo) [code = CT Medical C enter Colonography (combo)] Future Scheduled [address] [facility] 00:00:00 [facility] colon (procedure) [code = 987158408] Future Scheduled [address] [facility] 00:00:00 [facility] colon (procedure) [code = 481587621] Future Scheduled 1957 [facility]oidoscopy [facility]] Medical Cent[facility] r Future Scheduled [address] [facility] 00:00:00 (combo) [code = CT Medical C enter Colonography (combo)] Future Scheduled [address] [facility] 00:00:00 [facility] colon (procedure) [code = 807640494] Future Scheduled [address] [facility] 00:00:00 [facility] colon (procedure) [code = 627252801] Future Scheduled 1957 [facility]oidoscopy [facility]] Medical Cent[facility] r Future Scheduled [address] [facility] 00:00:00 (combo) [code = CT Medical C enter Colonography (combo)] Future Scheduled [address] [facility] 00[facility]00:00 [facility] colon (procedure) [code = 453837218] Future Scheduled [address] [facility] 00:00:00 malignant [facility] colon (procedure) [code = 829405047] Future Scheduled 1957 [facility]oidoscopy [facility]oscopy] Medical Isaele r Future Scheduled [address] [facility] 00:00:00 (combo) [code = CT Medical C enter Colonography (combo)] Future Scheduled [address] [facility] 00:00:00 [facility] colon (procedure) [code = 475300373] Future Scheduled [address] [facility] 00:00:00 malignant [facility] colon (procedure) [code = 835931262] Future Scheduled 1957 Sigmoidoscopy [facility] S[facility]oscopy] Medical Isaele r Future Scheduled [address] [facility] 00:00:00 (combo) [code = CT Medical C enter Colonography (combo)] Future Scheduled [address] [facility] 00:00:00 [facility] colon (procedure) [code = 873986040] Future Scheduled [address] [facility] 00:00:00 malignant ne[facility] colon (procedure) [code = 339747026] Future Scheduled 1957 [facility]oscopy [facility]] Medical Isaele r Future Scheduled [address] [facility] 00:00:00 (combo) [code = CT Medical C enter Colonography (combo)] Future Scheduled [address] [facility] 00:00:00 malignant [facility] colon (procedure) [code = 611050902] Future Scheduled [address] [facility] 00:00:00 [facility] colon (procedure) [code = 468256725] Future Scheduled 1957 Sigmoidoscopy [facility]oscopy] Medical Isaele r Future Scheduled [address] [facility] 00:00:00 (combo) [code = CT Medical C enter Colonography (combo)] Future Scheduled [address] [facility] 00:00:00 malignant ne[facility] colon (procedure) [code = 234219783] Future Scheduled [address] [facility] 00:00:00 malignant [facility] colon (procedure) [code = 574713621] Future Scheduled 1957 S[facility]oidoscopy [facility]oscopy] Medical [place]aele r Future Scheduled [address] [facility] 00:00:00 (combo) [code = CT Medical C enter Colonography (combo)] Future Scheduled [address] [facility] 00:00:00 malignant [facility] colon (procedure) [code = 404842266] Future Scheduled [address] [facility] 00:00:00 malignant [facility] colon (procedure) [code = 843239814] Future Scheduled 1957 Sigmoidoscopy [facility]oscopy] Medical Isaele r Future Scheduled [address] [facility] 00:00:00 (combo) [code = CT Medical C enter Colonography (combo)] Future Scheduled [address] [facility] 00:00:00 malignant [facility] colon (procedure) [code = 095479114] Future Scheduled [address] [facility] 00:00:00 malignant neoplasm [facility] colon (procedure) [code = 406460341] Future Scheduled 1957 [facility]oidoscopy [facility]] Medical Cente r Future Scheduled [address] [facility] 00:00:00 (combo) [code = CT Medical C enter Colonography (combo)] Future Scheduled [address] [facility] 00:00:00 malignant neoplasm [facility] colon (procedure) [code = 029525077] Future Scheduled [address] [facility] 00:00:00 malignant neoplasm [facility] colon (procedure) [code = 756786097] Future Scheduled 1957 [facility]oidoscopy [facility] [address] [facility] 00:00:00 (combo) [code = CT Medical C enter Colonography (combo)] Future Scheduled [address] [facility] 00:00:00 malignant neoplasm [facility] colon (procedure) [code = 318632910] Future Scheduled [address] [facility] 00:00:00 malignant neoplasm [facility] colon (procedure) [code = 132911559] Future Scheduled 1957 [facility]oscopy [facility] [address] [facility] 00:00:00 (combo) [code = CT Medical C enter Colonography (combo)] Future Scheduled 1957 DXA SCAN [code = [facility]XA [facility] 00:00:00 SCAN] [facility] Future Scheduled [address] [facility] 00:00:00 malignant neoplasm [facility] colon (procedure) [code = 717832136] Future Scheduled [address] [facility] 00:00:00 malignant neoplasm [facility] colon (procedure) [code = 918084273] Future Scheduled 1957 [facility]oidoscopy [facility]] Medical Cash r Future Scheduled [address] [facility] 00:00:00 malignant neoplasm [facility] colon (procedure) [code = 855066130] Future Scheduled [address] [facility] 00:00:00 malignant neoplasm [facility] colon (procedure) [code = 245665415] Encounters Start End Encounter Admission Attending Care Care Encounter Source Date/Time Date/Time Type Type Clinicians Facility Department ID 2021-07-06 [facility] [place] Surgery [id number] [facility] 14:33:12 HARSHINIE 2021-07-06 Hospital [facility] [id number] [facility] 00:00:00 Encounter [facility] 2018-09-18 Outpatient [facility] [id number] MH 08:26:04 2022-09-30 2022-09-30 Outpatient R CATRACHO [facility] [id number] Univers 14:40:00 14:40:00 FRACISCO ity of [facility] 2022-07-31 2022-07-31 Reftiana Chester [facility] 1.2.840.114 [id number] Univers 00:00:00 00:00:00 Adele PRIMARY 350.1.13.10 it [place] [phone] Mn dical [address] 2022-06-02 2022-06-02 Orders Doctor KRZYSZTOF 1.2.840.114 [id number] Univers 00:00:00 00:00:00 Only Unassigned, DEEDEE 350.1.13.10 ity of [place] [facility] 4.2.7.2.686 Socrates as [id number] [facility] [address] 2022-06-01 2022-06-01 Telephone Catracho [facility] 1.2.840.114 1 [id number] Univers 00:00:00 00:00:00 Fracisco GARCIA 350.1.13.10 i [place] [phone] [address] 2022-05-31 2022-05-31 Abstract Candido Balderrama 1.2.840.1 [id number] 2 [id number] Methodi 00:00:00 00:00:00 Emmie-Zaldivar 40853.1.1 461 s t 3.430.2.7 Hospit a .3.997192 l .8 2022-05-31 2022-05-31 Abstract Candido Balderrama 1.2.840.1 [id number] 2 [id number] Methodi 00:00:00 00:00:00 Emmie-Zaldivar 53863.1.1 461 s t 3.430.2.7 Hospit a .3.121878 l .8 2022-04-08 2022-04-08 Telephone [facility] 1.2.840.114 9 [id number] Univers 00:00:00 00:00:00 Fracisco GARCIA 350.1.13.10 i ty [place] [id number] [address] 2022-04-06 2022-04-06 Orders Doctor KRZYSZTOF 1.2.840.114 [id number] Univers 00:00:00 00:00:00 Only Unassigned, DEEEDE 350.1.13.10 ity of [place] [facility] 4.2.7.2.686 Socrates as [phone] [address] 2022-04-06 2022-04-06 Telephone [facility] 1.2.840.114 [id number] Univers 00:00:00 00:00:00 Fracisco GARCIA 350.1.13.10 i ty [place] [phone] [address] 2022-04-02 2022-04-02 Telephone [facility] 1.2.840.114 9 [id number] Univers 00:00:00 00:00:00 Fracisco GARCIA 350.1.13.10 i ty [place] [id number] [address] 2022-02-08 2022-02-08 [id number] 00:00:00 00:00:00 [facility] 2022-01-29 2022-01-29 Outpatient R DORIAN, [facility] [id number] Univers 08:00:00 08:00:00 LEDYCURT larissazenia o [facility] 2022-01-28 2022-01-28 Outpatient R DORIAN, [facility] [id number] Univers 08:00:00 08:00:00 LEDYCURT [place] [facility] 2022-01-11 2022-01-11 Outpatient R DORIAN, [facility] [id number] Univers 15:40:00 15:40:00 LEDYCURT [place] [facility] 2021-12-24 2021-12-24 Outpatient R EDEMEHEATHER, [facility] [id number] Univers 15:40:00 15:40:00 FRACISCO nuñez [facility] 2021-12-15 2021-12-15 Orders Doctor KRZYSZTOF 1.2.840.114 [id number] Univers 00:00:00 00:00:00 Only Unassigned, DEEDEE 350.1.13.10 ity of [place] [facility] 4.2.7.2.686 Socrates as [phone] [address] 2021-12-08 2021-12-08 [facility] 1.2.840.114 [id number] Univers 00:00:00 00:00:00 Fracisco GARCIA 350.1.13.10 i [place] [phone] [address] 2021-12-08 2021-12-08 Telephone [facility] 1.2.970.403 [id number] Univers 00:00:00 00:00:00 Brenda GARCIA 350.1.13.10 it[place] [phone] Mn dical NAL 059 [facility] 2021-11-27 2021-11-27 Outpatient ROGER KARU [facility] [id number] Univers 15:00:00 15:00:00 VAN, ROGER nuñez [facility] 2021-11-24 2021-11-24 Telephone [facility] 1.2.840.114 [id number] Univers 00:00:00 00:00:00 Fracisco GARCIA 350.1.13.10 i ty [place] [phone] Mn dicdavid NAL 044 [facility] 2021-11-16 2021-11-16 Telephone [facility] 1.2.840.114 9 [id number] Univers 00:00:00 00:00:00 Fracisco GARCIA 350.1.13.10 i ty [place] [phone] Mn dicdavid NAL 044 [facility] 2021-11-10 2021-11-10 Outpatient R ROGER ARAUJO [facility] [id number] Univers 08:00:00 08:00:[address] [facility] 2021-10-23 2021-10-23 [facility] [id number] Univers 08:20:00 08:20:00 BRENDA nuñez o f [facility] 2021-10-21 2021-10-21 Orders Doctor KRZYSZTOF 1.2.840.114 [id number] Univers 00:00:00 00:00:00 Only Unassigned, DEEDEE 350.1.13.10 ity of [place] [facility] 4.2.7.2.686 Socrates as [id number] [address] 2021-10-20 2021-10-20 [facility] 1.2.926.377 [id number] Univers 00:00:00 00:00:00 Brenda GARCIA 350.1.13.10 [place] [id number] Mn dical NAL 059 [facility] 2021-10-13 2021-10-13 Outpatient R ROGER ARAUJO [facility] [id number] Univers 08:40:00 08:40:[address] ity [facility] 2021-09-29 2021-09-29 Outpatient R DORIAN, [facility] [id number] Univers 15:00:00 15:29:27 BRENDA ity o f [facility] 2021-09-29 2021-09-29 Office [facility] 1.2.840.114 [id number] Univers 15:00:00 15:29:27 Visit Brenda GARCIA 350.1.13.10 ity [facility] [place] [phone] Mn dical NAL 059 [facility] 2021-09-29 2021-09-29 Outpatient R DORIAN, [facility] [id number] Univers 15:00:00 15:29:27 BRENDA larissay o f [facility] 2021-09-29 2021-09-29 Office [facility] 1.2.840.114 [id number] Univers 15:00:00 15:29:27 Visit Brenda GARCIA 350.1.13.10 ity [facility] 4[place] [phone] Mn dical NAL 059 [facility] 2021-09-29 2021-09-29 Outpatient R DORIAN, [facility] [id number] Univers 15:00:00 15:00:00 LEDYCURT sav[place] o f [facility] 2021-09-29 2021-09-29 Telephone [facility] 1.2.840.114 9 [id number] Univers 00:00:00 00:00:00 Fracisco GARCIA 350.1.13.10 i ty [facility] 4.[place] [phone] Mn dical NAL 044 [facility] 2021-09-24 2021-09-24 Telephone [facility] 1.2.840.114 9 [id number] Univers 00:00:00 00:00:00 Fracisco GARCIA 350.1.13.10 i ty [place] [phone] Mn dical NAL 044 [facility] 2021-09-22 2021-09-22 Outpatient ROGER KAUR [facility] [id number] Univers 15:00:00 15:00:[address] ROGER ARAUJO zenia [facility] 2021-09-22 2021-09-22 Outpatient ROGER KAUR [facility] [id number] Univers 15:00:00 15:00:00 ROGER ARAUJO zenia [facility] 2021-09-18 2021-09-18 Orders Doctor KRZYSZTOF 1.2.840.114 [id number] Univers 00:00:00 00:00:00 Only Unassigned, DEEDEE 350.1.13.10 ity of [place] [facility] 4.2.7.2.686 Socrates as [phone] [address] 2021-09-17 2021-09-17 Telephone [facility] 1.2.840.114 9 [id number] Univers 00:00:00 00:00:00 Fracisco GARCIA 350.1.13.10 i ty [place] [id number] Mn dicmn NAL [address] [place] [address] 2021-09-17 2021-09-17 Telephone [facility] 1.2.840.114 9 [id number] Univers 00:00:00 00:00:00 Fracisco GARCIA 350.1.13.10 i ty [place] [phone] Mn dical NAL [address] [place] [address] 2021-09-14 2021-09-14 Telephone [facility] 1.2.840.114 9 [id number] Univers 00:00:00 00:00:00 Fracisco GARCIA 350.1.13.10 i ty [place] [id number] Mn dical [address] 2021-09-14 2021-09-14 Telephone [facility] 1.2.840.114 9 [id number] Univers 00:00:00 00:00:00 Fracisco GARCIA 350.1.13.10 i ty [facility] 4.2.7.2.[place] [id number] [address] 2021 2021 [facility] [id number] Univers 10:00:00 12:16:[address] [facility] 2021 2021 Office [facility] 1.2.840.114 [id number] Univers 10:00:00 12:16:20 Visit Fracisco GARCIA 350.1.13.10 i ty [place]2.[place] [phone] [address] 2021 2021 Office [facility] 1.2.840.114 [id number] Univers 10:00:00 12:16:20 Visit Fracisco GARCIA 350.1.13.10 i ty of [facility] 4.2.7.2.[place] [id number] [address] 2021 2021 Office [facility] 1.2.840.114 [id number] Univers 10:00:00 12:16:20 Visit Fracisco GARCIA 350.1.13.10 i ty of [facility] 4.2.7.2.[place] [phone] [address] 2021 2021 Outpatient [facility] [id number] Univers 10:00:00 12:16:[facility] 2021 2021 [employer], Ang - Db [facility] 1.2.840.1 14 [id number] Univers 10:45:00 11:00:00 Visit Adele Chester 350.1.13.10 ity of [place] 4.2.7.2.686 Socrates as SUAD?BLEA [phone] Mn adam [place] [address] [place] [address] 2021 2021 [facility] 1040 [id number] Univers 10:00:00 10:00:00 PETER ity of [facility] 2021 2021 Telephone [facility] 1.2.840.114 9 [id number] Univers 00:00:00 00:00:00 Fracisco GARCIA 350.1.13.10 i ty of [facility] 4.2.7.2.[place] [phone] Mn dicdavid GUADARRAMA [address] [place] [address] 2021 2021 [facility] 1.2.840.114 9 [id number] Univers 00:00:00 00:00:00 Fracisco GARCIA 350.1.13.10 i ty of [facility] 4.2.7.2.[place] [id number] Mn dical [address] 2021 2021 [facility] 1.2.840.114 9 [id number] Univers 00:00:00 00:00:00 Fracisco GARCIA 350.1.13.10 i ty of [facility] 4.2.7.2.[place] [phone] Mn dical NAL [address] [place] [address] [facility] 1.2.840.114 [id number] Univers 00:00:00 00:00:00 Outreach Jami GARCIA 350.1.13.10 ity of [facility] 4.2.7.2.[place] [id number] Mn dical NAL [address] [place] [address] 2021 2021 Telephone [facility] 1.2.840.114 9 [id number] Univers 00:00:00 00:00:00 Fracisco GARCIA 350.1.13.10 i ty of [facility] 4.2.7.2.[place] [id number] Me dical NAL 044 [facility] 2021 2021 Patient Mendez [facility] 1.2.840.114 [id number] Univers 00:00:00 00:00:00 Outreach Jami Paola GARCIA 350.1.13.10 ity of [facility] 4.2.7.2.[place] [id number] Mn dical NAL 044 [facility] 2021 2021 [facility]phone [facility] 1.2.840.114 9 [id number] Univers 00:00:00 00:00:00 Fracisco GARCIA 350.1.13.10 i ty of [place] [id number] [facility] NAL [address] [place] [address] 2021 2021 Orders Doctor KRZYSZTOF 1.2.840.114 [id number] Univers 00:00:00 00:00:00 Only Unassigned, DEEDEE 350.1.13.10 ity of [place] [facility] 4.2.7.2.686 Socrates as [phone] [address] 2021 2021 Patient Mendez [facility] 1.2.840.114 [id number] Univers 00:00:00 00:00:00 Outreach Jami Guevara RADHA 350.1.13.10 ity of [facility] 4.2.7.2.[place] [phone] Mn dical NAL 044 [facility] 2021-09-03 2021-09-03 Telephone [facility] 1.2.654.293 [id number] Univers 00:00:00 00:00:00 Liz PRIMARY 350.1.13.10 it [place] [id number] [facility] [address] 2021-08-28 2021-08-28 Outpatient R NEMO [facility] [id number] Univers 16:30:00 17:19:04 ADELE nuñez of [facility] 2021-08-28 2021-08-28 Office Nemo [facility] 1.2.840.114 [id number] Univers 16:30:00 17:19:04 Visit Adele [facility] 350.1.13.10 it y of [place] 4.2.7.2.686 Socrates as SUAD?BLEA [id number] Mn adam [address] MEDICAL OFFICE BUILDING 2021-08-19 2021-08-19 Telephone Billy Lu [facility] 1.2.840.114 [id number] Univers 00:00:00 00:00:00 Melissa PRIMARY 350.1.13.10 [place] [phone] Mn adam [address] 2021-08-19 2021-08-19 Telephone Billy Lu [facility] 1.2.840.114 [id number] Univers 00:00:00 00:00:00 Melissa PRIMARY 350.1.13.10 it[place] [phone] Mn adam [address] 2021-08-19 2021-08-19 [facility] 1.2.840.114 [id number] Univers 00:00:00 00:00:00 Melissa PRIMARY 350.1.13.10 [place] [phone] Mn dical [address] 2021-08-13 2021-08-13 Telephone Billy Lu [facility] 1.2.840.114 [id number] Univers 00:00:00 00:00:00 Melissa PRIMARY 350.1.13.10 it[place] [phone] Mn dical [address] 2021-08-10 2021-08-10 Telephone Billy Lu [facility] 1.2.840.114 [id number] Univers 00:00:00 00:00:00 Melissa PRIMARY 350.1.13.10 it[place] [id number] Mn dical [address] 2021-08-10 2021-08-10 [id number] [id number] [facility] 00:00:00 00:00:00 [facility] 2021-08-07 2021-08-07 Outpatient RADHA TRAMMELL SLE [id number] [facility] 00:00:00 00:00:00 NADYA 2021-07-28 2021-07-28 Billy Medina [facility] [id number] [facility] 00:00:00 00:00:00 Melissa PRIMARY [id number] [id number] [id number] Mn dical [address] 2021-07-25 2021-07-25 Letter Neurology [facility] [id number] Univers 00:00:00 00:00:00 (Out) HEALTH 350.1.13.10 [id number] [id number] [facility] [address] OFFICE BUILDING 2021-07-17 2021-07-17 Telephone Aly [facility] 1.2.840.114 [id number] Univers 00:00:00 00:00:00 Melissa PRIMARY 350.1.13.10 it[place] of [place] [id number] Mn dical [address] 2021-07-13 2021-07-13 Transition Finesse EVETracy 1.2.840.114 [id number] Univers 00:00:00 00:00:00 of Care Blanka DE LA ROSA 350.1.13.10 i ty of [place] [id number] [facility] [address] 2021-07-13 2021-07-13 [place] [facility] 1.2.840.114 [id number] Univers 00:00:00 00:00:00 Melissa PRIMARY 350.1.13.10 it[place] [id number] Mn dical [address] 2021-07-06 2021-07-10 Inpatient U L[id number] Univers 20:21:00 18:16:[address] [facility] 2021-07-06 2021-07-10 Hospital Billy Lu 1.2.840.114 [id number] Univers 20:21:00 18:16:00 Encounter Melissa [facility] 350.1.13.10 [facility] 4.2.7.2.686 Socrates as [id number] [facility] 094 Branch 2021-07-07 2021-07-07 [facility] [id number] Univers 14:30:00 15:30:00 Joss ICAL 350.1.13.10 [facility] 4.2.7.2.686 Socrates as BLDG [id number] [facility] 020 Branch 2021-07-06 2021-07-06 Out[facility] [id number] Univers 10:30:00 10:30:00 [facility] 2021-06-07 2021-07-04 Hospital ER Rony Shin [facility] [id number] [facility] 19:44:00 14:34:00 [facility] B[facility] Clary Ballard Umar Moon, Marc R 2021-06-07 2021-07-04 Inpatient ER LOGAN [facility]SO [facility] [id number] [facility] 19:44:00 14:34:00 2021-07-03 2021-07-03 Surgery Breonica [facility] [id number] 15:05:00 16:05:00 Angela Torres [facility] 2021-07-03 2021-07-03 Anesthesia Mitchel [facility] [id number] 14:49:00 15:35:00 Event [facility] 2021-06-30 2021-06-30 Surgery Krzysztof Ryan [facility] [id number] 19:35:00 22:24:00 [facility] 2021-06-26 2021-06-26 Surgery Krzysztof Ryan [facility] [id number] 07:30:00 11:59:00 [facility] 2021-06-25 2021-06-25 Anesthesia Marissa [facility] [id number] [id number] 23:59:59 23:59:59 Event [facility] 2021-06-18 2021-06-18 Anesthesia Asad Santana [facility] [id number] [facility] 07:58:00 14:52:00 Event Vahid Link [facility] 2021-06-18 2021-06-18 Surgery Logan Russo [facility] [id number] 08:00:00 14:45:00 [facility] 2021-06-16 2021-06-16 Anesthesia Sade Argueta [facility] [id number] [facility] 11:58:00 13:03:00 Event Robert Allen [facility] 2021-06-16 2021-06-16 Surgery Adalmatthew [facility] [id number] 10:30:00 12:00:00 [facility] 2021-06-09 2021-06-09 Outpatient [facility] [id number] [facility] 00:00:00 23:59:00 Herberth e of Medicin e 2021-06-08 2021-06-08 Committee Twin [facility] 1.2.840.114 [id number] Univers 00:00:00 00:00:00 Review Bertrand Ivy MULTISPEC 350.1.13.10 Hermilo 4.2.7.2.686 [facility] [id number] [facility] AND SONI [address] [place] [address] DIABETES CLINIC 2021-06-07 2021-06-07 Outpatient [facility] [id number] [facility] 19:44:00 23:59:00 [facility] Medicin e 2021-06-07 2021-06-07 [facility] [id number] 00:00:00 00:00:00 Only [facility] 2021-06-07 2021-06-07 Travel [facility] [id number] [facility] 00:00:00 00:00:00 [facility] 2021-05-26 2021-05-26 Mauricio Hudson [facility] [id number] 00:00:00 00:00:00 [facility] 2021-05-26 2021-05-26 Transition EVE BennettTracy 1.2.840.114 [id number] Univers 00:00:00 00:00:00 of Care Rakan JONESY 350.1.13.10 it y [place] [id number] [facility] [address] 2021-05-25 2021-05-25 Transition Bennett EVETracy 1.2.840.114 [id number] Univers 00:00:00 00:00:00 of Care Rakan JONESY 350.1.13.10 it y [place] [id number] [facility] 403 [address] 2021-05-15 2021-05-22 Inpatient X WILLIAM [facility] NILESH [id number] Univers 13:03:00 21:15:[address] [facility] 2021-05-15 2021-05-22 [facility] Dangelo Ibarhim [facility] 1.2.840.1 [id number] Univers 13:03:00 21:15:00 Encounter Neil Thomas 350.1.13.10 [place] [id number] [facility] 081 Branch 2021-05-15 2021-05-22 Inpatient X WILLIAM [facility] NILESH [id number] Univers 13:03:00 21:15:00 NEIL nuñez [facility] 2021-05-18 2021-05-18 Patient Mendez [facility] 1.2.840.114 [id number] Univers 00:00:00 00:00:00 Outreach Jami L HEALTH 350.1.13.10 i ty of [place] 4.2.7.2.686 Socrates as SUAD?BLEA [phone] Mn adam [place] [address] [place] [address] MEDICAL OFFICE BUILDING 2021-05-18 2021-05-18 [facility]phone [facility] 1.2.840.114 [id number] Univers 00:00:00 00:00:00 Bertrand Ivy MULTISPEC 350.1.13.10 it[place] of [place] [employer] [id number] [address] [facility]ES [facility]INIC 2021-05-15 2021-05-15 [facility] 1.2.840.114 [id number] Univers 11:00:00 12:33:54 Visit Adele [facility] 350.1.13.10 it y of [place] 4.2.7.2.686 Socrates as SUAD?BLEA [id number] Mn adam [address] OFFICE [facility] 2021-05-15 2021-05-15 Outpatient R NEMO [facility] [id number] Univers 11:00:00 12:33:[address] [facility] 2021-05-15 2021-05-15 Outpatient R NEMO [facility] [id number] Univers 11:00:00 11:00:[address] [facility] 2021-05-15 2021-05-[address] [facility] [id number] Univers 00:00:00 00:00:00 Adele [facility] 350.1.13.10 it y of [place] 4.2.7.2.686 Socrates as SUAD?BLEA [id number] Mn adam [place] [address] [place] [address] OFFICE [facility] 2021-05-15 2021-05-15 [facility] [id number] Univers 00:00:00 00:00:00 Adele HEALTH 350.1.13.10 it y of [place] 4.2.7.2.686 Socrates as SUAD?BLEA [id number] Mn adam [address] OFFICE [facility] 2021-04-07 2021-04-07 Telephone [facility] 1.2.840.114 [id number] Univers 00:00:00 00:00:00 Thurston Cata MULTISPEC 350.1.13.10 ity of IALTY 4.2.7.2.686 [facility] [id number] [facility] [address] [facility] 2021-03-25 2021-03-25 Telephone [facility] 1.2.840.114 [id number] Univers 00:00:00 00:00:00 Thurston A MULTISPEC 350.1.13.10 ity of IALTY 4.2.7.2.686 [facility] [id number] [facility] [address] [facility] 2021-03-19 2021-03-19 Telephone [facility] 1.2.840.114 [id number] Univers 00:00:00 00:00:00 Thurston Cata MULTISPEC 350.1.13.10 ity of IALTY 4.2.7.2.686 [facility] [id number] [facility] [address] [facility] 2020-08-28 2020-08-28 Orders Fuentes [facility] [id number] 00:00:00 00:00:00 Only [facility] 2020-08-28 2020-08-28 Melodie Dill [facility] [id number] 00:00:00 00:00:00 [facility] 2020-08-06 2020-08-06 Telephone Freddie [facility] [id number] 00:00:00 00:00:00 [facility] 2020-08-06 2020-08-06 Documentat Freddie [facility] [id number] 00:00:00 00:00:[address] [facility] 2020-08-06 2020-08-06 Abstract Freddie [facility] [id number] 00:00:00 00:00:00 [facility] 2020-08-04 2020-08-04 [facility] [id number] 00:[facility]00 00:00:00 [facility] 2020-07-31 2020-07-31 Outpatient Nola HUBBARDTHOMAS [facility] [id number] Univers 10:00:00 10:00:00 [facility] 2020-07-28 2020-07-28 Documentcalli Frazier [facility] [id number] 00:00:00 00:00:00 [facility] 2020-07-28 2020-07-28 Abstract [facility] [id number] 00:00:00 00:00:00 [facility] 2020-07-25 2020-07-25 Lul[facility] [id number] 00:00:00 00:00:00 [facility] 2020-07-24 2020-07-24 [facility] [id number] 00:00:00 00:00:00 [facility] 2020-07-24 2020-07-24 Documentcalli [facility] [id number] 00:00:00 00:00:00 [facility] 2020-07-24 2020-07-24 Abstract [facility] [id number] 00:00:00 00:00:00 [facility] 2020-07-22 2020-07-22 Outpatient Nola HUBBARDTHOMAS [facility] [id number] Univers 09:30:00 09:30:00 [facility] 2020-04-24 2020-04-24 Outpatient Nola HUBBARDTHOMAS [facility] [id number] Univers 10:45:00 10:45:00 [facility] 2020-04-16 2020-04-16 [facility] [id number] 12:56:21 13:26:21 Visit Alanis aGrcia 350.1.13.10 [place] 4.2.7.2.686 Profch[address] [id number] [address] 2020-04-16 2020-04-16 Outpatient R AMERICA [facility] [id number] Univers 13:15:00 13:15:00 ALANIS nuñez [facility] 2019-02-18 2019-02-19 Discharged Fidel Leonardo. [id number] Memoria 03:46:00 22:27:00 [facility] ivelisse TELEMETRY [facility] 2019-01-26 2019-01-26 Departed Fidel Leonardo. [id number] Memoria 01:39:00 06:10:00 [facility] Herm ivelisse EMERGENCY DEPT 2018-10-09 2018-10-11 Discharged Fidel Leonardo. [id number] Memoria 09:44:00 21:45:00 Inpatient [facility] 79 [...] day s AFB Smear (test code = 34897-0) No acid fast [facility]illi [facility]sp[facility]2021-08-07 10:55:07 Test Item Value Reference Range Interpretation Comments Result (test code = No acid-fast bacilli 6463-4) isolated in 42 days AFB Smear (test code = No acid fast bacilli 63430-9) [facility] (non-sputum)2021-08-07 10:55:07 Test Item Value Reference Range Interpretation Comments Result (test code = No acid-fast bacilli 6463-4) isolated in 42 days AFB Smear (test code = No acid fast bacilli 29432-7) [facility] (non-sputum)2021-08-07 10:55:07 Test Item Value Reference Range Interpretation Comments Result (test code = No acid-fast bacilli 6463-4) isolated in 42 days AFB Smear (test code = No acid fast bacilli 37816-9) [facility] (non-sputum)2021-08-07 10:55:07 Test Item Value Reference Range Interpretation Comments Result (test code = No acid-fast bacilli 6463-4) isolated in 42 days AFB Smear (test code = No acid fast bacilli 16896-4) [facility] smear (non-sputum)2021-08-07 10:55:07 Test Item Value Reference Range Interpretation Comments Result (test code = No acid-fast bacilli 6463-4) isolated in 42 days AFB Smear (test code = No acid fast bacilli 57607-8) [facility] + [facility]MEAR (NON-SPUTUM)2021-08-07 10:55:07 Test Item Value Reference Range Interpretation Comments CULTURE (BEAKER) (test No acid-fast bacilli code = 1095) isolated in 42 days AFB SMEAR (BEAKER) No acid fast bacilli (test code = 994) seen Fungus culture + [id number] 01:03:45 Test Item Value Reference Range Interpretation Comments Result (test code = No fungus isolated in 6463-4) 28 days Fungus Smear (test No fungi seen code = 1406) [facility] + [id number] 01:03:45 Test Item Value Reference Range Interpretation Comments Result (test code = No fungus isolated in 6463-4) 28 days Fungus Smear (test No fungi seen code = 1406) [facility] + [id number] 01:03:45 Test Item Value Reference Range Interpretation Comments Result (test code = No fungus isolated in 6463-4) 28 days Fungus Smear (test No fungi seen code = 1406) [facility] + [id number] 01:03:45 Test Item Value Reference Range Interpretation Comments Result (test code = No fungus isolated in 6463-4) 28 days Fungus Smear (test No fungi seen code = 1406) [facility] + [id number] 01:03:45 Test Item Value Reference Range Interpretation Comments Result (test code = No fungus isolated in 6463-4) 28 days Fungus Smear (test No fungi seen code = 1406) [facility] + [id number] 01:03:45 Test Item Value Reference Range Interpretation Comments Result (test code = No fungus isolated in 6463-4) 28 days Fungus Smear (test No fungi seen code = 1406) [facility] + [id number] 01:03:45 Test Item Value Reference Range Interpretation Comments Result (test code = No fungus isolated in 6463-4) 28 days Fungus Smear (test No fungi seen code = 1406) [facility] + [id number] 01:03:45 Test Item Value Reference Range Interpretation Comments Result (test code = No fungus isolated in 6463-4) 28 days Fungus Smear (test No fungi seen code = 1406) [facility] + [id number] 01:03:45 Test Item Value Reference Range Interpretation Comments CULTURE (BEAKER) (test No fungus isolated in code = 1095) 28 days FUNGUS SMEAR (BEAKER) No fungi seen (test code = 1406) TISSUE [id number] 12:44:09Surgical Pathology Report Case: [id number] Authorizing Provider: Logan Russo MD Collected: 06/18/2021 11:41 AM Ordering Location: [facility] Received: 06/19/2021 03:44 PM PERIOPERATIVE SERVICES P [...] IS RECOMMENDED. Signing Pathologist Direct Phone Line: [phone] signed by Tom Paige MD on 06/24/2021 at 3:29 [id number], [id number] valvePerformed.The interpretation of this case included the use of immunohistochemistry or special stains.PRASHANT A1Bassam ROMERO AND NORMA JOHNSON, AFontrol Slides Examined: In-house known positive controls were evaluated along with the test tissue. These control slides run alongside of the patients sample show appropriate staining. Internal positive and negative controls when available are evaluated Immunohistochemistry technical testing was performed at [facility], Pathology Laboratory where it was [...] to perform high complexity clinical laboratory testing.[facility], Department of Pathology, [address] [place] [address], [facility], [facility] of [facility], [address] [place] [address], [facility], Department of Pathology, [address] [place] [address], a. Received in formalin labeled with the patient's information and "mitral valve mass" is a 1.5 cm in length by 0.3 cm in diameter robert-pink tissue, which is submitted in toto in cassette A1.MP (resident)Tissue [id number] 09:50:09 Test Item Value Reference Range Interpretation Comments Case Report (test code Surgical Pathology = 104) Report Case: [id number] Authorizing Provider: Angela Loco Collected: 07/03/2021 03:04 PM MD Brian Ordering Location: [address] Received: 07/06/2021 09:08 AM Service Pathologist: [...] clip x 1 DIAGNOSIS (test code = [id number] 3220) FuZzEwMzNcZnRuYmpcdWMx IHtccnRmMVxlcGljOTYwMV iukbBlLYQzeYMkL1Mzzgjt PCbbUD5qOK4viQtqdBJlqB EmDSRzKvFey7utz547fFJk v4ssGUBUzfhblMm7jIsaL9 3rc5C9OwbdI49ixXOwGUK8 NIYhBVVjnTYgYADiITU8YG WsmFOxZ5yeMEDuOM3peyts DVyaUHjxFEAwwCZ3TVLpqP CxW8DuTPGfRRyqOSLwyip0 CbMlIo7miWGvwKjoVBugIA UpNXDwMTwzTCWmIuZpAW4v I23CI47eQWTQB4RWGZHTSH mJGJKGVI2PG0h7CBLhvaZm LSAgVFVCVUxBUiBBREVOT0 4MVZNqitmjSRElWg2kX77E J24wGXGFW5aBG9RQK7UYGP oCHzXCW9wLYFvaNcnNJJTI SbfeVAJvRW5lMW4EGYSMWR qOJVGOYMhXEG9XSfISMrSN CPLPHSNCJVANCI8YIZEksI FyICAtICBORUdBVElWRSBG L8FgYVnWKZ9FYuLGCHLRON YVDJUVQRTuB6FlTKLWVQpJ FL9GUGbsGIWyhCViSTMdQX JRMA2RAIZQVUgBYN0MR0AT FjFPCqcbHE6CYTFbFNVRY4 BTWTpccGFyICAtICBNVUxU SVBMRSBGUkFHTUVOVFMgT0 QoGCKZJUnHAtBICSENE72T XHBhciAgLSAgTkVHQVRJVk JrUv2FOGrGX9qrG9QAETSx QIaELFtDD3xYAI6SKW6PFV bOGjJHM3kqrVLiIPAhpwOu eCXwIGQiANMXTO2JGHATCc BQY7DMUvCTXGOSGCcULLHI TH6HO0c6VESzjmJrEFYkHQ BIINbFDPJzEzPFW17UCaBG ZF6GRTMMWeJEYNPbWQDOVa 5NSCxnVZKkYF7aBX9LA4FQ SVZFIEZPUiBISUdILUdSQU XGROOWI5NEZVQWQRMLKyYW IFwTU70FWgSOZSVpjg37XS N8GoDlk6J6ZCE8GXDxDQNj k0dqRLMkeIXwYqXzJdPtRo NxBejqhEQyMLKnRuAvd5fr z970rJVvp2aaPRLpFxH8lU CzLWBogILvD815AULhFKpe d5alr9PoZRRtkVCrk7K2DB BYyqyruMs1dLjhE83qk9X6 LjzgW6vfXTEgUZGbF7WuDO 0oRIZzPid0NNK6KFP1AIOl CVOnN0FeFS2zDDBhbRVzHY k7y0gwmIuvKXFeIAP7p9rw QNzjqmJwTH0slt1feDh2e7 xjczEgRGVmYXVsdCBQYXJh S9YtoNwyVz1mxEv9dEflEt euEJH7Hhy2KV6sox28gwi4 aZfiHHYawgsmFhQ7GVneQS ZtdmzqXDn5XHhxVDJhxJZ1 UYSqtCYnQ4TkTZEvBL4tcz h7VOE0KFyaSTDoFwZ1SMOa hVQmVSMxoLldOCpvl189BF B4CzBnNE7wL1Xql2B2bK4n aXRcZGVmdGFiNzIwXGZvcm 9rlELoNGvoc8YvBJS7gnD3 wIFlgRQzGUEzHlI5EGtxBB 5rcg82SZZiTDJ7kr0dwMFu uSwjndQfhACtFJkhI3GuJQ Ibi007WLWiW6NzMVZsc9X0 ywHiMaJkGFUlkLE2wbU5FZ DzHI7iijprz9mvYArxENgz KVRjpiR7snO2XRYphMKkZ6 FanT0qTUNoBB0bsnkyl1og JUE1OGsvFFTsEWB1RkYcHG Zxh9Tnjxz4OtEsp7EhxRJz SMttW37mz762SUDfjhHnL5 xwbGFpblxwbGFpblxmMFxm vwX5PUJeUTwjjtbpEYHjQX pdH5sfYvCmFIYxuWheRNoa x0DjUWMdRLEzZjKikLOpZU UqBab5LYMjxFHwTEZnTrDu O5eotrpsHsJCJCKdk7sqZ1 gqsJGXwLTvB4OkGEhmfnWa FQdjKIcbVMYjWMA0BL8vGM SqMNLjap29 CPT Code(s) (test code w0sghARxSKOzyXF8DiJyPZ = 3357) Osp2tyn2XxsQMryBCaWAji sKSialWbzo04uWC5uQ59EF 7bVQNpAbY0IHQlqrG7Zpz4 NFMsAMIzjOJfU056e7gvt6 gdusMndOW4hHfnLMAbtqmx KyT9GUdqSQIfbwpkOOn4TV keBCVyfRI9HSHvnZBfY3Ba RICgYX2yzss1NPJ0DSagGJ JrOzG4JQLldUWaQUKypXpq NDiyj853UWX8RhFtIQBupw WtiWtmcF1zSvPaKTI1CWTx VCu4NRMdzb9= CLINICAL HISTORY (test k3fakQFkPYAxzCY4ZiNmOH code = 3356) Uqu7gfx6WstDRvyKOlLYzp vOPeksSpmt73qWY4zJ07CM 5eYSNeNnL4PGHkskQ0Kre7 GBLjXSXcbVFlT755n8ylk7 nvzmMgcPS9RMMxTLKrU3Zh NH5lNEMglCOxI66wpDZjMM D4JAMtJTChvKTkRBThMOM7 MBHryHNiZ7vjPAHpGD9tug rgAHgjGEbmVMDbbOT7AYLx iNNgB9GsDRAlYItiFRHrlh s2FvKyGn4tnAWjyZvnAZlh YXJkXHJpMVxwbGFpblxmcz YwIQEoBTKZsf1dBGOrYvsk pAQfA7wiOQ8oiMwaEFZ4ns XzVRZwMafxAQGnse5aEKSr NqrsfZFpQ1hyQS3oyXwpNY N6xCXjLNKlbv9= GROSS DESCRIPTION (test d0mhsBZbOMSdbIIDAMKwBs code = [id number]) vhvhFpIZZapPEuZ1Vpvczc CLvlOO7pMQ4heOjqfOFnzV UjXB8OHFYbKaHiOPUakLQe wlJqLrRxRCSjkRDffNT0VR PmYV2mwvaeOYpyXRkxHQPg tjO6KRVoyHTsP6QsAVRkGD 1seilrYCX9KBxhwZ5pspRD PugjZv1rkTFugSjpDxYfAn NoYXJzZXQwXGZuaWwgQXJp NEe9sQ7SYidpQ24tu2I6Eb a3IAHuHCGfR2MzBH0jSIQa tTAcD67NLjamOFJ4RZNPLr mfOTPcAA6Cl5yvLORfaCVk YJG6XXjymPShXJXxDSPqLP a2LNDbZIlbdFUuHX3hiGji IolbdEbqt3HixCSrFBarXK KxNZSyQPidVHAfRH5XPnYr HIeNKppsIApuNgQ8WId2SV OYQqEyZtRqBbxhUTQ6ACir YSw2XGf4SDvOJyX1XRK7JY ZlGHtoQCGmVjlaOBs1ZAOs XFxmIEFyaWFsIFxcZmwgXF ctE26kqTulbD5bOT0uHK3c qKPuCAFomI7iYZ6xV3JjwU 0uXHBhciANClxlcGljTmVz dERvYzEgDQpcbHRycGFyXG xpbjBccmluMCANClxsdHJj aFxjZjFcZnMyMCBSZWNlaX XuFMJgcgNni1XcZEcrfqDy YWJlbGVkIHdpdGggdGhlIH UxvGahzkTcK0W8guCnVE4d OZKnZFHnM0PsROUqI06bUS SbcC2lBRLeAO1jRAv2LWTc MPByXkpmoU8zoGFjMPFqkA 9tSKYaU3UsFiMsq73ysIH7 jdQuQhMgGTCkbs9erV1sFN Rcvc6aESCdw4D9UBEeq4H6 XLUuSM94NJkqKG9yCPruXB 4xIGNtLCAwLjYgeCAwLjMg nGQySvMvC86hMuHnNBvkRW PbXQYqkEHbUVbuTOB1Pn6n tLYzSVMecvK3p0ZgKFjzGP DgTadtKXUyYCdmgGBaJQ4F UBHbXHqoccFhKZ7TYHHjCC oaJFBgrLORDVD7JY2cHYou rLWnnitrATVdK2AuI3Vwjw YulBTcOBAbtiCvb6scCVZ2 XHNsbXVsdDBcZnMxNlxwYX B9MKq0HJmjGRYiX4RvH1Ze XYjnQTU9TUAzHhKdZKAqKP GKNeVmZaItOuI3Anj5DmTe CZs7AUroJ6AIVNNkAGN5BF M2YLY1QrC4KTu9KOVGLe7h SPGyIDD5FcD3KLQ0SiE9KC xcdCAyIFxcZiBBcmlhbCBc OOQwGRrdaoS9TOWuPFYmzI nqsY7aWx6oBM1hvGLwAABw tI9qFV8pLrtviDLnDOSgTJ 3skA8iAqptNIOxUYkzMRJu Y31dm8FGk7KfTQ9QDTt4nx SdvvuprV6xDOWbskIgIFqi uKUjV1joL5WxENVoUpBpLm BpYTm7VXLulK5yUf2riSOj oI7kqGBbRNliMVB7iMJmEZ SoJVDnVYFfEN02WAmRYRHc bmFtZSwgbWVkaWNhbCByZW NvcmQgbnVtYmVyIGFuZCBc zOzfIkHyMRt9B8ZfdHkfJO Xpf1bkcs2wtAvztAXmx9Zs gmCqidmgHMHbSVBqd93lyG Z9njNdRvHuhAt9nOBaNWH9 ZF6gkRbxkhxiySDbSIp4eA WrCKPpOxFkaCuaw9UoVXru LjQgeCAyLjEgeCAwLjQgY2 4yzR4cUAylwjBvFVGdED5j XMOgHXJxoJAmkL6pxiTvje YcqQDtcNN8JXYftP1kuE06 pvXwckEYID9fxFTiMR8RCT BhciANClxjZjBcZnMyMiAN ClxwbGFpblxlcGljTmVzdE VtRsAmeDhlxD69UUGztXNo FTF0XJ6yBXQodhknWWBvBN GlUOX7NHtwrQ95fOPeSYVt CNLjfFPuhW2Qp5wnGOVitU NmAGO4FUdxoOGbXOIzFMNx JLgvKkLbL2IYREHcIqSbON Q2YJSbGAz0WEv5TJ0KEaNe LGBaEQNzVoS0IFPcWGi1TC pdJS6DRDT1Hgq9ZLC8DQL8 NTMyOCBcXHQgMiBcXGYgQX CeYYspBDcmlJGkXE4dvVqf acG3TREnGJtwNSLgJHZhyG rfMWSPt4qlayJuNFDiC0k2 P8NuS3ZlUCsxLk3rbLPwWS 8SLGKcfUTQLUH1DD0iHMYB ClxsdHJwYXJcbGluMFxyaW 0uOO5IBYx1shJeLZPyVWel duLvDAKuE7FlxpLlKXdcGW Bmae2izMwqFRypQjWwIETj n8u9jHK5aTTniCA9uLPpqP gsBiGkHI6euWQaIS4lUOgo GXkzlbLxk9GsAV74qYYzpg WpnkWcCJK9TaNvNHllWDYf y2r9gVnyJ62fg16acvqayQ NnJUNqAG1ksS1aOuIcajNj P28dm6dacHCff5LsuDDpzN lwbGUgdGFuLXBpbmssIHBl XIFlH8EuJOYeSOCim3V7IU Cmg3V0VDBeMw08GDvyZo0g SWrbYH68LZNwPHdpVIWbJ0 GxM2K0QRtqQELNwYZkn4Wh G1gfLQ0weMLnu5MppMe2dZ QmIZmeZXAnmC0zuX1wZkTe XHBhciANClxwYXIgDQpcY2 MkAIFcQuJnODnvzAljuO8t LIVpX40fs7QVa4KgTGFvHI gui8xxiLbxy8TtzLXkYKln KDJzkFHkBGaykI0sDnQxj8 hzdNs6YMaoqoO5SEExmm1Y YygnDffrwQicz4UwpEAyIF rnMKFgHVNiSBqtWILnRS3Q LjKhPQwPDxmyUEoqZwG8VN h5FPTWOuQhXhPfHflbUME3 KwWqFEa7VCw8WRyEDcV7JL S6AQArFtRkNTAqAsvfAWa1 IDIgXFxmIEFyaWFsIFxcZm ytIVorE89cQbEoEeezxJVp onFPNgVZu3a0jUgxN45ce6 8jKFDImnWin8HvppLeQvei OSPgKFwnVWYpY04ee3OCw9 SnCN0BLFk2drNfqzjguA2b JJNtgkUiAWoyoZHjV4exS8 DqEGAgGtQpTtCzKVn3XHYs tP2vRe8szUCymV8kmXQyXD zeIKN6dEOdLURfTXHjRDQz QI19ILkGBQOzneFvAGlhgS VkaWNhbCByZWNvcmQgbnVt YmVyIGFuZCBcdTgyMjAgXC h2C3LgvWjhHKKaq6jkji25 jqKke3JwkyIcGXBrkEJdWP 8vQghoyL91UJSzVYJcEIDx hQvsDTlzJhXfazNnZ44th5 bmdBTvq0NrkUXukOqofMUp dGFuLXBpbmssIHBlZHVuY3 GxYBWvYUFdi4C8STZeb1H2 GIDmXo1wCCzxXb7kLXgkXT 27SYDzATldQDYeF7FnR1X0 MXdhTDYSgCZbx8TtN1nwKN 5vdMRhc0DmdAt6aUNmCUos WOBxtJ8vpB6dAGLdFAYcEJ HhzuFAFgteQMWiEKgKv4Js xUdlIDFqG3q3x16qP6lcfZ LqTVGDJLS1aHJnziLdeBYe DU5VLLIebbMESsbsWfLnSc MyMiANClxwbGFpblxlcGlj MqMylOSzOuLobPfppF26RI FjcQRkFIG5JF5tZONxqmpb LBMwAIXuAOH5DByxxH29lD QjSCBuKOXcyIAfzL6USONd BKT9ONmfmL59wVYuIV2JRZ YnMSI8OJSwbWYdDYW3FQ1l fQ0KfQ== MICROSCOPIC DESCRIPTION c7xunSFkPNRdcZO5WdRpZA (test code = 3371) Ucx5uuq2KqtMXogPTjEDvd ySNcmlMywm41sED9uG15XN 0oKRCaZtY5UJAimiI6Mmk0 MZGhGPBdjJYjA920k9van8 xohuZwaIG5gXivEUTbtcyy ObD7WLboAQUxafqrJSe7NJ jcOTPhuRX7ODUhbCCzW1Qi ATJqGT0rtdc9TVE8IZmvMC GgPyM8SEZsoUMkURTxdXuw HCznx927LIK7LqNkZQZksl MevXjexD6cIxXuOMLOGJHg l1WcCJEuTZBnqisrSPZwTW Bhcn0= [facility] [id number] 09:50:09 Test Item Value Reference Range Interpretation Comments Case Report (test code Surgical Pathology = 104) Report Case: [id number] Authorizing Provider: Angela Loco Collected: 07/03/2021 03:04 PM MD Brian Ordering Location: [address] Received: 07/06/2021 09:08 AM Service Pathologist: [...] clip x 1 DIAGNOSIS (test code = [id number] 3220) FuZzEwMzNcZnRuYmpcdWMx IHtccnRmMVxlcGljOTYwMV bvryKbTLWyaDOtK8Ozuthe NQfxNK0kWI4pvWbaiDVtcP RkLCMuTiAot9jmy163iYGr g6bmRWXCfczdaWh4kIaeQ5 2sw6W5SadjR32mwSZeWRC1 PFXxLPKwrFAcSSZiDHN8YL QoyMFeQ8cnKVFxLB1lvunc XKccHQrcHCVceTH9KLRwaW NbP4PfKDCfRFnuBWNirjq7 ThTjUp7wdKZayZjdFHixZG IzRLHiMMqgTONdCpJpVH1v T03OW54uCNQWZ1IDROHKOO rSPXWMHJ9EG0i2ZJAvxxDb LSAgVFVCVUxBUiBBREVOT0 8DJVXtotsuCWHuHa3zK94N A30lYLDOV2iSC9SHA8MFDB gTLbLWK7xYHUgpKrbGDVDG FmqkOSGtYT4nHY7NTLNXKA rQUXSGVYdKHU2RZtFSEeRS VQPUXHGLRURAVM6TDBPhqG FyICAtICBORUdBVElWRSBG P3LrXNpLBK3KBuOVGAGBHW TWFIFEYOXnZ6QtYRPWKJqI UV3NSNdnKVZuhVQcWHFaKI UCAM0DMJERZHdYGW4DW6SF HhTNTwmmTS8GHAQfTCIQP8 BTWTpccGFyICAtICBNVUxU SVBMRSBGUkFHTUVOVFMgT0 NzBCSWNGuESsZDCUKET68K XHBhciAgLSAgTkVHQVRJVk AkCc6QAVyUF1lhS6YPHCSc DYdTAKyHQ3cVDS0AIR4XRZ nGSqAOG1gntEHiGEFaszCi zXWuIDPfVMRGBD1GCZUDPx EYP3ZGOzINAYXUNPyGOKHU JX7QW4g8QHUmpvKpKPUoID IKJIxPMOVmLfERF70RVxRA SI0LKNVCCmWPXKFqZOLEZp 0NYIbiNJXiAS1eSG8YH6QM SVZFIEZPUiBISUdILUdSQU UXLHQXW5RQANOZZRXDRvNT AQwKO01CSmAXZPGecu94LA T3FkGhm4D8CZW9PAOtPPNw a8kmQJLlnILbTeUqLqIxFh GsYumciFWtZMFvJlNvj8xu u425bNTwd1snSXTzApS7mB AhKMHgkCYhL886XMCkZWdd q4zpr5GuDHCopLMso1S0AP NYmkzlcVz9jZzfB85wr2Z9 AqvmL6puNPWqNPNwH4AmXW 7tNZLsQtn3KKL5OXU5BZCm ZKZyV1OmIM4wWDXdyTXkTP n0k1jjaWqcPBLoNEI9g0hn ODdrciBbGT6nlv2tjHx5l1 xjczEgRGVmYXVsdCBQYXJh C6UltGhiMa2uhPx6fAdsIh siTTS2Dns1NY7nef67ktu6 zQsoGHRfjcnoRvE5BRgkNW KcfmrzMJg5PObwFDYqsPW7 KRSuvZFcU6IhQIGjIH8fff x2FIJ5PZwsHQDcPaC2OHHr pUToOBZlkGecTIllz707BJ C0AzLsWH4lG4Nim9O8eG9u aXRcZGVmdGFiNzIwXGZvcm 5aeXSiHVxwt0ZvCWB7wzD7 bALviUXyGOBxIqE1LJfdQK 6glt46DVPwKUK3ed4cyYHv aCumdfKetEEdYCvlO7PvZC Foo008MTUlU7GjTZUon0I0 xwEwObRmKRGvbQR6qlW6QD ZtLJ5qmuilz7qcESewBLvq NBWoffY7wqF3PXKzrXJvO8 ZauM7iAXQeSP6qapnqt3sm SJN1BJqxJCOcVLZ8DgHjWW Gqc1Enbqk3EvNrt5OpfKFy KLhlP11sq065JRAgnmBeL1 xwbGFpblxwbGFpblxmMFxm vjQ6PURtBDeuirwnVMAhFJ spA3rgYlXgGERhbAttLNao g2IuYCFoZZLpMkKqmYIjZR JuOwa3BNGtaWJlGEMkHzBv B8nrgsknNeQAPIUff7gpR5 buoECPjSNrC5OjGGmtteLb IJmtHFqySKYxKOB2ID0vYS OqNJQexm66 CPT Code(s) (test code i7pdoUFqONQhhOL3HzJoQS = 3357) Gki1nyt9UjwYLelVKgGFmy nWDevyAgoo60oON2fV32RG 4dCUXlQuA6CLYynmX1Xzp0 GCLoXHAfmNTbJ041c2tfv1 ekreKyuCH7sCyfNOKdftcq CeZ8NBjsXSMgjjieRQt7BS mzAIHbrDG8GUGfbYBmV3Ex AGGsZF5tmoc2EDY0VYspVJ TaNtN5UVTumPWjVWNuiKxf PAaev694NSM3GuJjNHQsgv XzyNfwlQ0uRoRmZST2KGXh PTk6KVFmdt8= CLINICAL HISTORY (test l6bgmLJeOSVfmAO2BbBbQX code = 3356) Zim5hne1RxvSBfsMDrRUdn zXXpftSipq51nEF7sR18CZ 2hSVOzXzB5PCHedlG8Wyu1 CXZxIIKftYUrI563d3ipo2 hrzaEezSU6AVLjMTSuV1Fo WP3vXJRtvWEfU87bxLWcEJ Y1HBMdAYIdcRZjHQWgUXA1 XDLtnUHfV3sfUJUeWB2qed anTSbhKXzhUIEcaKF3WSBt fUEvI8XlCKFgBWpnAFOyyz m4QeQnFq5sfJOpvCsiDYil YXJkXHJpMVxwbGFpblxmcz ZuUROwWAMLjn9gBKUeWtsh eNDiW5uhNO3ubMefRAZ6az KaVDHkNvkgVLQsct2cKBUl HleucEAlC3azQM7ioGbbNK U8fBDgETGtvo6= GROSS DESCRIPTION (test u8dxtNGfICHueCQSGEVaRi code = [id number]) imwgKsWKKytMUuW7Hygaaz AQrhQW6fNN9zeXcweKPmcP HtOP9QGZMmPpTnALTiwOZm ywOwVuHkGDFhrFRigWI3AM IjVZ3zlqgpRJhrHRclVBVm jhV4TQSzvDCoX6VdKUHuPF 8feozqEPH6NYzxsA9laqNU ZiahHy6wfFLwrBhkTdQhSs NoYXJzZXQwXGZuaWwgQXJp GUx8uP2QZqvlJ93zb0U3Uz w9PIClARDtA9OxFT3tKQBh kPFyG76RInvxGNC9JERCSq uqCTMlKN7Gq1aeEEMeaPBf GQI9QCdcgWBoGCWoNNLmVK i7HOQzJZlfbCLbVA6idSyz OgsybEcvk9EikKKcFJdhAR BsSBZySKdwCXNxZC3WEhYk RCfAMqqfDZsgBsZ8YQo0WZ TLSjIqReXaDsuxXXK3YNvm RSe7QMv1TIgFXjO3RGO0WK RxKFvvNUVxXvacSBs2HBYy XFxmIEFyaWFsIFxcZmwgXF ocM44caVlycZ2eVD4cWT9d sPOjIGUjqR9yUT6cL4JthG 0uXHBhciANClxlcGljTmVz dERvYzEgDQpcbHRycGFyXG xpbjBccmluMCANClxsdHJj aFxjZjFcZnMyMCBSZWNlaX MeYOTwdtGer2IoMIhzogSq YWJlbGVkIHdpdGggdGhlIH IzwAzvksFfY8C8sbZaKP1r SRWcNAWkE3SmUBShN89tGC MdoW3iJZEgBF1hQGz2UDUj UILpEgzlbR4dvMFtLHPvyN 9dKXRuD9CsJgDeb83dfZM1 uaNhTlLwEIXmfj9pbP5dFA Ctws6kHVMsp9G6SPBwa0H1 DQAfMF02WOsvQH7uXKovKR 4xIGNtLCAwLjYgeCAwLjMg nADzYjQzK93jWjQwIAfuMW YfKNNlnBMqXJbnCKS7Vt2s rVZrEZWcujJ9e2EwGUriSB TaXjuaJUTaQRraaAKdRO4V WVCcOOlhfbXfNW8HBFKgOW slHLIddXMHFAI2ZU7iWTld pCXoljtdJTGhC7NdE0Sgvv OavFEnRSUuekRdh4ebZRS1 XHNsbXVsdDBcZnMxNlxwYX F7SUy1XWdfLNQmA2BuL7Zl TZwgNAB9EEMhXqJwWEXkKN FAOyRlNkJwXpV3Lgz7DeKt IEj0KNfhO7RKQBIoPEC4XD B3MGS1LgQ3YRy1PUNDDg5i VGWpLSF0PpG1FFE8HbV4ER xcdCAyIFxcZiBBcmlhbCBc CTFoFCfkgwQ5VVMzATYfoV jteS9oJb1oCO1vnVWgDNMg qM2aRU9sAnlmsLJkVVUoQI 9pjV1nRxvvUGCxANaaJXZn W81fj7GDl6OyDZ1TLVr8pi IztrukrG5tVAVkvnCeTCin tAXzS1flX7JsVYXaWfRaEl PkKYm5EWZmmC2rZr7rrNHc sY6ayJLxUZpeSCV4pJGfBY RsJTDzACTkXB47YIiLDRHz bmFtZSwgbWVkaWNhbCByZW NvcmQgbnVtYmVyIGFuZCBc vAwvRcMfUCl5V7KbnOgjBD Sfk7qlty1rxCcrgZFzh4Al rmGcvqfxIRGhKWHuv78ofX E1ezJsDhNtqTh0cVCoHXD8 VO5rjWqxfacuaRItNTc8oG WdMZLsPjIyiBksc7GkWPum LjQgeCAyLjEgeCAwLjQgY2 2nxF5iBGzxijEpKKXiWV7s TSVtHDZnbCInzG4riuKikl ReqOHleDS0WMCgoK7jlP49 dlMlozHTLY1fbTIwXN4QKD BhciANClxjZjBcZnMyMiAN ClxwbGFpblxlcGljTmVzdE AlVjUzwZaacO46WHXpuLRp ISE0SG8fAMWuuiisCOItPK DdIKF5MWriuI12lCYwMNPb CGDyaBBopQ9Ti7owQFYdaT ZzORA6GGafpRYnFZDyKFAf CHtwQjUfL2MQEOKlWgXfJR O9ARYdNAa1EQv2TZ2VCbKw IEKiGAAbTgB2AOYcFSd7KV iuVU9JUPI2Vux1QWZ1AEI8 NTMyOCBcXHQgMiBcXGYgQX YmPJnsWNqxtNPiSA7lhCzq liL4KAEdRTqpESOcLXNxnN nlLYRBq4eyyeWhVDBjH3j3 L0QrQ0HpNGspDd8drZEtFZ 4LQTXziZIAUAZ9PR9hCTHW ClxsdHJwYXJcbGluMFxyaW 7bUO9GZXg2flSdSTNdJGuq ywItCHKjJ2TjerFsQXbvWK Fhja6owUyqTHlbIpHuYQDt e7k3zND0tEUlgLK6jZDalM jdPjIgGK8yaZIuXC3oAQio NLjcqiBcy6SuSB97rQIiyn InnrDlIHP7SfHmYTlhZNTg d9f0bFezG06gh26otyugrG VmJRXzIP6kpJ7lLfAyvgUf W77zh0ysyQKyc4RubZZfaM lwbGUgdGFuLXBpbmssIHBl CXArG3HhZFEdDEIex7F0SF Jes1A8PSMbPb17BYbaDd9z POibCN02GPNkAWeoXYSsK5 LdM5A3CPviZPKIrQMuu9Ke H7daVE6xmOEox0XotMx1bT OvAUzgZWPxiA1bgY2mBwSs XHBhciANClxwYXIgDQpcY2 CpVNClSoJvUGpwwVrmtR4l LWPgV39nb0DIs7DqURZtGY dzr0hduMzpf6KexXYxVHrv RNZnfRIeALzqsX6lEwIni6 ffmPc3DQjhkrC1KAWqlf0U ZhspTvsarBuvd5BhxDJsUI jsZHSaKRTrOBolOVApLY6W AsTpPEgDMmhmPZasXaQ3MH c9JNGUVfQsFaGpKbcgUIQ2 AkXuMEy6HFa4KVqJQyB2WR Z2AFHkPiCuCENjNngiEOn3 IDIgXFxmIEFyaWFsIFxcZm jgKZtbW71rHoClAubsaPAf nfHEWcLGo4r2lYfpL92kf4 3bYVNEyjWuq1MedbDbAqrd AKCaARxdUJBtA04iq9YRg2 ZtJR0EGTi4xzRkfccjbV3p OYSkuyCyLVpxiTXhJ4ydO2 SpKKPzGhOzTnDfZFh4VJGh zO0qDs7nfIUkpZ0rdPGpIR leOTZ3cPYdSECdBXQdQBMc DK33FBxGJBNixlSsBPdqzG VkaWNhbCByZWNvcmQgbnVt YmVyIGFuZCBcdTgyMjAgXC s2D8DeuRxyDFVgy6bonr63 ojSmt9DgcqTeWGLldULvNU 2sHajxlX23HUYbDYNjPQQh qUnvHJivFxLwivLtC91wh0 xlqNMma3QaeSBfwLnpwRUo dGFuLXBpbmssIHBlZHVuY3 JcQUQkGTZcm9Q4KOXtm1J2 NWMhUf5fWGxkYv9mRXibVC 47AESySUjpRITyH6MhG6L6 EFmjWAVAaWPmr8QnJ1uoVJ 6soRPym0FipSq6mMGmSBxn PEKsmC0uaK3oIZDhVOImBP MfmtXNOggeORMwTOjLn0Up rArpABGpE7m6r26bB6zauG RpHKZFZNS4lQJxvtLiyBHe KW0PPISfggRUGpqeWqMiFx MyMiANClxwbGFpblxlcGlj GmZudUBoEzOsjEhhwW14YW QmmGUjKKM6NF4vWRZspfox QSNmAWQxHXS5UMmwiJ63uP LfPJBmYRLrnYEauV0ZCXHj VTL9TIizrW65sOTdFH5MXM QiCOJ9MWPppPBhNCB9PT0i fQ0KfQ== MICROSCOPIC DESCRIPTION f1thoFPfHDNodKO7JbXnCO (test code = 3371) Mwp1pyd2KwhZIxuIHwHXuc bJJqpcDhie87mUQ2tP31AZ 2aAPPcBgS3ULAjgzR6Sop3 XEIhIZUrjYOkJ764a7xep1 baxsUffCV1oIxkJIHilokv NhK2JBtmVOSqrycpBSw0QG eoOYCyfNK0TTNgkSNyT7Gx PSFfNZ6reof5CCW0NHqnPS FqXyQ2NURovZLkPYRtcEbr FPvli574MKY0HnDtKCAorg OogKuuiO6zUdMzYKWNOIWd d4PqEYArSLMfnfaoHAJeYC Bhcn0= [facility] [id number] 09:50:09 Test Item Value Reference Range Interpretation Comments Case Report (test code Surgical Pathology = 104) Report Case: [id number] Authorizing Provider: Angela Loco Collected: 07/03/2021 03:04 PM MD Brian Ordering Location: [address] Received: 07/06/2021 09:08 AM Service Pathologist: [...] clip x 1 DIAGNOSIS (test code = o3gbxXStGYYmy3xhNTDqdU 3220) FuZzEwMzNcZnRuYmpcdWMx IHtccnRmMVxlcGljOTYwMV ocuvMzCZRxnTZpF7Cbruoz HZoqDJ1iRW6jjHecmLLqhZ LnRMAlAqLck4umw570uOCy l1wnDSVLqojktAr5tXgcL7 9ed9K6XyocW10pmMPgTOZ6 VIRjXIDxrLAfMISnLKN1CN ZvsUTnT3lhPDKsXW3fousr RSxzDChsGEBwsFB3PIKnqC UvE1XiWTOdFYzlVKBjkqz1 SrBeNn4teGDnlZkzEHsuJW IgWODmRJgkTCFxHvZdZX5b A10XK32bZTNMH0UXMYBPLG hOOTPNYM1FZ3x5IIHrwpAv LSAgVFVCVUxBUiBBREVOT0 5CEYCbdssgZGFbNv5kK30D W37sTJJGO0dCJ8YED3FCCT sTNrTLL4gVDKwgBunXRHXG OjuvGQDyAL9eAG8ZQROOHB xWMZRZDHhDSR9ZGwFXYqQW SFORTFAXNIPZGO6RKGTewI FyICAtICBORUdBVElWRSBG L3RnMKaVIJ5GBsQSOVHLWP CWTKNOAXDqK7QiCLOTMBiS PK9SPAknAUOfpJMeCCOgAN JZIO6PXROIPHyCFY4DV9BI WfBWQonnCA1UFWUhZPUTM7 BTWTpccGFyICAtICBNVUxU SVBMRSBGUkFHTUVOVFMgT0 NqKQOVWTaBHzBBLPYZF08H XHBhciAgLSAgTkVHQVRJVk TlQt3GZElER3euW5LJOWFi JJgBUXaOS9cXES8LFK0IMG zCCfOYR2dmxYXfBZRgcyLr uWYbKKAaGINFYP4SKBZUUf FXW3ERUvZIJTGPAWdGHJJN YT6AZ1q6BQXcpxFgJJTiTO QSAJqEITRtQeORQ01ENfUD LZ2JVULRRoUWPNOoKGVIJs 3KFPezIVCmJU4jVM4PY1QF SVZFIEZPUiBISUdILUdSQU EOQPRQH7GVRRLLUGNSZqEK ZZyIG57LMkXDWIMmsa12YO E5RaAgs5V5QIN1HLFsCFVr v3nzIMHmsACsIwSlQgFmWb PtDfndjUYfJKQcMcKva6pw a892kRKgw7rhXXEmFyZ2dZ AwROUntCYuU447DNPwKOsx i0ywp3KkWPGwhPVmg1C2ZZ PSitrfqOa1jSqpP79dp8Q7 KfgjN2yiZYLzQFPgL4DfIN 7qUVTiWxl9CST3CBJ4HZXw RBSrK5GsYZ8oZQDzkLYmGJ b0o5ufcIjkZNZsVPT1o6yt TOqwekCpXT1ohb0swQy4f9 xjczEgRGVmYXVsdCBQYXJh N8ZspBfrMw8pgVp3sCnyWw umQJZ5Kie5RK5kgj36nse7 sDxdZYCxzktcNnQ3FHtjQQ MhkimoQSn4BVumPJAcwYE4 TTBanVMaX6YkWELcPI6lmm h5ENZ0MFttKVSsQyA7MDPa iKMrJDRjnMqySYatk404HF U0EbDmUT3wJ6Qsw7C6gN1m aXRcZGVmdGFiNzIwXGZvcm 2ekBWdNSzgj1MuBUK6duP6 lEZjkCCqITTpBhW3STzaNH 3hwp81LABqVKP7jf0wyUNt kAlzbvYlyJExZBpvL8NgAV Qup288SJRsR0XqITDyh1Q9 gkWeKzVqOQQqmUC4fsQ7LJ FpYS8getdhk9rqFYjkFSql UGGyjwX0duN8HCFquQKnL5 VcfJ1tCQXqEB4kvcpnx8qf XTH8PVtsYGVsWHJ1YtBtSK Jlb0Vfemm7KcHin5FbkRBm SOqhU33bm790RVHukqXzJ5 xwbGFpblxwbGFpblxmMFxm paE6ZWLxEKbrctngNKTrLM tgN7aqTiCySDQfeLiiOAbd n7KdBZQbOOLrBwHuwLOdVQ TlFfk0WZUrzXZaDDUnOuMt M2uvcwkkSaAMPKUer7nrC3 nzbAMUaADcO4WtVChmhoSb HQsbGKqyOAJgPIB6KN6tIJ SfGYDexw37 CPT Code(s) (test code o8vhjMJqGVPkgFV5VxQnOO = 3357) Znv5mkt3YocRUgyMCsNEzh tFDmnaVgzd20fVU4lY52RR 3iHFRhPsH3XWAwfeN7Vyi3 GLMuYYPxeGZdO048k2poe1 dplaLcgMU4oQczPHSrzwyb ZwK4EBmcPFRpsvwiTOk9ZI qlXYErjVN8TNYfeWNaO8Tp AUDrAM9yati1SLZ8FVryEL BaBiP0PTAsxSHyFWToxJoi CMvme578ZQA1WsRzOOGcnu VtvHbrbY2mMaUrWWG5YILl YKu6IPPtyw8= CLINICAL HISTORY (test b3nosGVnNIEpaYP8KeLnNA code = 3356) Plq8ugo3MzwOAkwDFwJFfu bSAgpfIstb70zAD6xL22XJ 8oNHAzJwE9SSLczwX9Wxu1 NHJbMQOaoUKgW619t3bpx5 ikdnArcCF2ZVCwZGGtU5Yo WO5vLKOfuTAtX70gtNXnLD I8NVYyQIEemCBjRWJzEBY3 UECpzXWjP1mxUKNtSP0evp lwPJdtTYonZRNmtUM3DZYf kLEgH1GfFXMrXGljUXYnnw e0FrEuKf2kzEZhlSkuHUxl YXJkXHJpMVxwbGFpblxmcz JaOZUmGLXMsp0uTAZgRgml tXEwZ4ppCE2ndYfcGYF1gk ZxCAVoDnbyQBPswj1rRCNn HmyhpKKdP8efVQ3mmDsgJZ N1eKHmOPSahj5= GROSS DESCRIPTION (test u0oluVNgIZXsoCIFCCZdIw code = [id number]) vimoTaNXMfmNKiV1Gpcozy RMdaJH2nFJ0gjDwcnFPibF QxFJ6CTMZgBaJmEWAoxQTg voDvMhTtIPDvuNBmiZG0LH ZqHH6vcfooLTznCWffTVYs wbC0JVQkhJEdD2ZaBVWpWX 5fnbsmBAE9OWfvnJ1cjzRS SfofFx8oaHRvzFezVwSqKh NoYXJzZXQwXGZuaWwgQXJp HLc1dM2EEwshH94kk1U3Ir r3ZMXbDXWoA4MxZZ1dZJQc rHDrZ79MJmjwRTB6OWBPOr gyLFDuVO6Sa6olEVMirWOk YOO6CAetrKSnSCHdWPMlPX y8JJJnSIgkxSXbPI8tlNyc HrkbhScwu8RooQFzMAmuRE IuMZKsDSbwMZWuHW5IItMw QNbTHxgoLAxvKsV7OYu7AO GVZyCfPjLrAyrqDCJ0NRea ADg6TXo1YSdIIuV3WOS4DM GpNDhoHNEaRuzrDYs1DDRz XFxmIEFyaWFsIFxcZmwgXF yjU88zyFwwmD3hDO1hSA8u gFIaABFpaG3xXK0zP2FfsY 0uXHBhciANClxlcGljTmVz dERvYzEgDQpcbHRycGFyXG xpbjBccmluMCANClxsdHJj aFxjZjFcZnMyMCBSZWNlaX PzNZByebOoh9WkATcwgtWi YWJlbGVkIHdpdGggdGhlIH KnjBrzidLcZ9L2ooGfOS7b VMIyBNKxE3UcEGTsC49uOP KymZ7zFOXcQV6tNEa6CJMq YTRvHpearS5otLWlBYLpfH 1sMGRqR4CvJsIga34fgPU4 dtIsIkCfVFJutm5skG0cXG Nlvc8gVLZuh0N6OMKeo7X7 CFVlBE15WVtwFR4pFBizCK 4xIGNtLCAwLjYgeCAwLjMg zIShNwPqN06bJwVzGUrrLQ FcBJSlrSHzLRxcOPX4Sn7y hFUtDGIyvzH2x8MfXCjpBP XnRrpfLZFwBXpivEBfNQ6H FQMdUSkqieErDR3CEXMjPR drLTAouAXYERT3CX6uUFso hYMbnmxhCVTtV4TwD2Dqon WioWDbHFZltiKxw8wtROL9 XHNsbXVsdDBcZnMxNlxwYX M2BXh8NCxvTYXrG7VpE3Cn XWkgPZK1JZNqZbYdYWPeQI IDDqJdAbFzHjG9Cbq4SbBu VJu2GTzuL8TWRHHsQBH6ER Q6GDH3IzU1SGb9NKNGWy4v ZRZhNZQ5AuQ3TOF6LgD1XP xcdCAyIFxcZiBBcmlhbCBc BTFjQQdonqP5DAHjHPHyoV vijQ3mVj5bYV6ahJYhTAUt bD7iHS5qZvmomCOgIBKoXC 1qzD3lBaktHRXdNEwqCMOq O79vu2FZx4LvRA2YNKk6tz MqpoktuG6rBYPeyqYdZNkf cDRsD4kzA0UlOYLeRgJdMq UgMTm4RAEjeD7sYe5byDNn dM4haYRjFJqlUYY9wLJkXX DjMTIrCDQrUG65PMnUYKTd bmFtZSwgbWVkaWNhbCByZW NvcmQgbnVtYmVyIGFuZCBc qZmxBaWdNHf1M7WihOytOK Aag6skff7ocBnqzRWzv4Mi bhHsgmtfKLMcXRFvv72hjF A1irCzFoTwpSh5vWDuADS8 KH9lvPkzngqjxJMaCVy9pW OsETVwAsPrmGbfm0KsCAym LjQgeCAyLjEgeCAwLjQgY2 2ukL5sQFvnhoBkSQJuSM9z TIEnLXXttXTyaK8gtqXulu QpqPSxiRK6QTQulL2btA19 vrXqmnYQLR4gpUIvWS0UIC BhciANClxjZjBcZnMyMiAN ClxwbGFpblxlcGljTmVzdE PuFyTytDgciE98DBGagHZx NIM5BF1vEWVcimysUUNoGO CtQQF2HRjihN45zVXlAPJz WEUvvRUnlR8Wu1xuVTCxdP CzQMM0OVnexTLdISUjUFSl JJttOnMnV9FJNSZnQkOqSX H9LGYdIKx2HDc3JB1MLxFl AUEjGUMcTnS4FRVcZXa1RY xoRX3GVUO4Bpq8FRZ8SEB8 NTMyOCBcXHQgMiBcXGYgQX KuEWusSWkncGOqBH7cbNvk xhX3DRNzTJuxRNByBEBmbD iwKFVUr9vkyjInQRRfK7q4 Z5VlW2ObUEngLo3dcYQrIG 6TQIQsbYHRNBZ0ZU1wRFTX ClxsdHJwYXJcbGluMFxyaW 2nRG5TDNt0qeWnPSQaNOua lePuCJMwV3OichExTWvoAT Sqdz7xoMrcIClvStKkFKJq q1e2hFS2lRFcfKK4mALqaM zwVbPcYB8vcUUeNP6qAHqy YJgsrxUxe3YiQD57cYUvfg TcsoOkBIW9YjBaEIitKOHf s9i9aWxiT50gs98iigffcT SoPORuAF7xuU5dZyAkbkVj W90gp8pweMQxa9EkfSGcvM lwbGUgdGFuLXBpbmssIHBl KUOwD3XkARLxXRPsb8I5RW Jtr9I5NZIjIo11ORrySf5f VZimQH17JAPvLRntXJHlQ8 DaY1W4PFafWTKZrEPzw1Xo E4erYR3vzZOql8FpyRk7dY FuSPifJWAwrD7rxY1bGgMg XHBhciANClxwYXIgDQpcY2 UeGSBlQoJqCGzlpEpikY5r WHQrN23ep6NWw9HyEKRhWX hfz4nulZlfl8RoyPTpSKht CXQleIZtTQfzsS7jHsYjg7 jasUy7VFlroaH8CHRany3T GzyeYxaugJgxc0DtsXSnLJ uqNAJkBFUcQZbnQJIdDC9B XwShNMgISztlNQfcZfG4GJ u3OERXWaHbQdBeTnazDHY8 LkMcLUh3AOs9LGbPMaD3HK D5DLHqLfAdMCBhIhzwXQr3 IDIgXFxmIEFyaWFsIFxcZm lhUUjoT19eUdMnCmptkSAa kcSUNaNSk2l8oJhjK16gz2 0tNCZSnwWpf7YsigYkVpwz OBEqWPffIITzB84zo1SZq5 JqAQ0BNPc8nvMxqbxrcX7m RPYbybDrRUnenSNeZ6jkP4 VmUIBjZrKlJkWvLSe4AHKz jB3qDj9evZQwrZ0vxYBhQZ olOGQ5iLGuHUGdXNPrHBTa VG45DIlBGYHsqbHmXDiubT VkaWNhbCByZWNvcmQgbnVt YmVyIGFuZCBcdTgyMjAgXC d2S8OtsNimZGPjo9upia20 qiZxx6RjxgEnZUSztVHkVT 6wJingbG65ULRqGNQqUGEv kVoiYNpfAuPfokWhA42ho3 csrNQgm9AinUXlxFdgdHRj dGFuLXBpbmssIHBlZHVuY3 OpMGBpFKAlm6I7XVBrn7F7 WVPxHc5xTBqeFj3fFRlaBG 48UURmRXfyQSNjX6UuA8F6 PDcdJEOUlHOgx9DvV4xyQF 0idWDzg9TpdVh1gMYrEAfp IAZlpZ5ugC3oXFHmVCSeFM PisoVZHcpzIHHwGRtIu1Or xNjvCBQwE6y8y29pE3yiaV TpQUEJHYW5jHBsizUjyUXf RL9WEJDodrVUOyipUsMvGg MyMiANClxwbGFpblxlcGlj UfXonJIdBcJqmSqcuW35KU JhzCXwTPN0NV0sBPHexwye HJWtMFQtBJC9JMvdiZ66kN BuZMXgVJQifNGahL9SSGEe YWT5ZDlghT57gRMkJP6XMG MnZQL3ICIcyAPnWXG0SX8b fQ0KfQ== MICROSCOPIC DESCRIPTION o3mitYSrXFZouYM6NbZwQJ (test code = 3371) Ijb8imz9QusUQvxJPcMZca iLDrlkOttr89vXT3tX18BN 5hWEDtGyL3QMXntxK7Psd1 ZSThWCJbkPYxC760q3wmj3 dgllZxnGP8aZigIABymcqf ByV2EGhpZKPzbwopIFa4XL krXRWilDQ4HXOofYQxW6Qj HVEcDC7mtox4EPV0ZNdrWX MuXyG2RJKdiYHmUWSkxTjo AVfod615YEK1NsNvDAOblh KjtPscbH9vMfSqHATMIQEs p3SsEEBbCAQibcdyGUBiNI [facility]0= [facility] [id number] 09:50:09 Test Item Value Reference Range Interpretation Comments Case Report (test code Surgical Pathology = 104) Report Case: [id number] Authorizing Provider: Angela Loco Collected: 07/03/2021 03:04 PM MD Brian Ordering Location: [address] Received: 07/06/2021 09:08 AM Service Pathologist: [...] clip x 1 DIAGNOSIS (test code = [id number] 3220) FuZzEwMzNcZnRuYmpcdWMx IHtccnRmMVxlcGljOTYwMV oymqThTZIauDVyI6Aekudy CGalQI9tTS5raDpqaZWnwA OgHOElTyYoq2fog236wCOn i7hhWPLNpdpgzUg9hOqvO8 6qf5Y3JiedO76joPHaEOP2 FLNgWJFtqDRkAKNrHJS0KY IxeINuA1gyHDAeKJ7ktyas TYhoFPsxJYYbcOT6XVKqnV KyI2TlVXTuHQtbTYVzrkf5 MbEvHq6ggLHqeWjjTGqcMJ FgCGGgYHhyFTUoYrTfDL4q Y37HT30oKPPBX0CQKZBLTV eXTYVTGD4BO0i8RMCyrkMw LSAgVFVCVUxBUiBBREVOT0 4GNWHifmevCREgAg1uO20L Z98uZFNOM9yTL1MTW3OTYR hPAjAXP6nYWXxmVboFWHVO OowrFFBjXE5uQE5GRBLWPL oQKRUJCNyICE1AHgATAhJA JMDFTPNVNZIQYX3DHWExrA FyICAtICBORUdBVElWRSBG J9SlSOrBIA3YVlWWVUDCNC ZUOIMLSFPwN7XxWZIGSZqK VD3TFCxkWTCwzYQyBGNdUT DSZV2MPVCSRDjDZC0YI3MJ AyJKOawaYT9BGNCsULZTA8 BTWTpccGFyICAtICBNVUxU SVBMRSBGUkFHTUVOVFMgT0 MnGIMESUtIQzDSZKEDZ30J XHBhciAgLSAgTkVHQVRJVk QhVa8CSWjAT1jnF3AVTVZi OSiDXHdEI3yKGC1KOV1PGQ oPBcYQD3rzoYUuYGDnetHo hHLpTCDrOBMXJP7DZSFEYh NPE7CWTqPHYREZMWfGLYXK ZP1TS2f8XLWslwFnGQLeSI MAXZtEOAWmUiXPG44XGoTZ KO3VREHBErKMPTRzMITVUu 3FKIyvGBNaNK5mIZ6KW6KW SVZFIEZPUiBISUdILUdSQU NGIXOCQ2BFWIMMHGQXMdWB ZQlNS20YGdLNVUXwju84OT Y4NiDfx2F8PSB6YGCpYMYi p2pbITCqmMJvPzEfIiZjRf YwZmwoiIMoIIXpWrVzw0no m623wRTxa7zfGJFeOnX2oR UiZOVmjORfK023DACpFPyp a1jxp7DqPLFvoUPgt8C3WS TLytikeKb1jZalM93sh2R1 FqvuE9wuAJXgBGZaN4WeBM 8iBMRoEcn9JHE7NPS9UJNg UMOmA3AxFU0vQBXdyMDbFA u2v1yqdBgvPQRhERK2j4tg IIjhewWiFL3any0cbOx1z5 xjczEgRGVmYXVsdCBQYXJh F7VsoRinZm1tcTr5bXweCx oiNWB9Rog9CC2ymb04urg7 tBchVREtajfnAjT4SNaaAE WsygviYOy3KGouHSGjrGQ6 QVKipOOaA2EvAIPxOL3nkj k3YMA1ZRseXXGqKiT2KBZn wYOnUCDycJokYKvid047HA I3AsCoTZ1zB4Qbd8Q2uP1u aXRcZGVmdGFiNzIwXGZvcm 1ukNSjBMjvb2HmHGM6lfO3 nUNezMCtEJEzHjV9ZHrsQT 9sjq92QYZsRQS2in1rqUIr aFhczfQcqJZpEIepW9JuMH Ylh753WAGsC2NgYSFpv6H5 kwHtInDyREHdkDM8nvY2YP MaAC5qjtvxw4srLLzxOVvb OMNtowL5oxS8IYDagIFmA3 BmiW8kLSWuOG7dksald9sf FUE2FTivIXVzUPP8IgWpMS Kaz3Fufey9BzBmg2OumTAi SHjfW84qz264FBLhrbCtG9 xwbGFpblxwbGFpblxmMFxm wfO0DIZcDIoxxfdhZPQhVT zdD4jvAjOuTZKfpOtfHYgg d1BwHZKtJEWzEbUiuWIyPR VkWeu1WNLxeFPvTQLqRbTt N7hwaupcOoOBKVSnj2ukC6 bmhPPXmXAoT0VxUBrlfpSy YSpcRXynFXLbOJZ7LK9yTQ KpMTTroj16 CPT Code(s) (test code m8djnGXjJRVwvPI0OdQtGW = 3697) Xbq9awk1VdtFSesFQvZJye yTRykrLgom66zUE3nK70RJ 7iAFDmYxC6IREkytR7Zmn7 VCHgYOJlzSImM793m3drj2 zcfmQkvZF8eIibOERsdybg FcH7QDtqGJRlcnxbZDz0WX pjOORsvPY9LEVirOExM7Ek QWZeXN4bhfu6VNM2BVzqXI MiGwQ2WUHhwBBrXKXpoZst CGawy020FVK9QuCoHJUvpq FhcUmxwM0pJjNpWBH8XOVn BEu1HBPdcs6= CLINICAL HISTORY (test h5cpfGLyRMPdkTL7DfGeHW code = 3356) Kbv1akt5PryRZwdTJgTFbg fXJlieFghd05fNY9iP28KM 6zZEGoKhH8GPCnbkT2Vqx7 TIJwHYPvnYMmV405c0kvo8 mzwfHwlEY4BDUqPVQdP3Ie RI6qETLvyWOoR23apLWgYO S5FXVoDKBfaQMgQJUsWMC7 XROvjBAfM1btWXPlNZ9cvs ajDOpvKLyqTYFukRU3NZIf xDNjF6FkDDMkUHcjRDOmcd n4OoKiUi7ygMLixFkrNVwy YXJkXHJpMVxwbGFpblxmcz WeBMBrIOWSwc4gKCZeKomp iOIqQ6tsHR5cbIhbBGU9np QeSEJgQlaqWWVvhc1kZTLc MsfcpLBtZ4wyWU8wkAfyJH K2fXCfGLGzmp2= GROSS DESCRIPTION (test d0flxWOxVSSruIAPNSSfZg code = [id number]) lnxhPiGADfwRKzF9Kcxsdi OPfwHI6hVC3oaDmxfINxdB UvHT3WKRZbGdHeGUInnEPy daPiAaZnFNRtjPIkfJL7MK KrVZ7twhadWTmeQVspQSMq agB3YFQhmWHcF0MeUEOiYI 3gvodzKNK0LVwgiQ9hioOC OfpbVk3ybEAyyKmeWjIgVh NoYXJzZXQwXGZuaWwgQXJp PPo2oQ9FIpxlP18wc1E2Ib q9DEFgEPQaE7WgAW4rTICi oGGrY44LXiufMFQ9TPNWTi hfZSDfWV3Xw0vrVGBbcYTc JVA9UVxgdWCePEYaHHVxXE w8QDSyRZizcEZkWL6zqMsu AugieJkaj8MssEDlRPagMX QuPEVjYYigXWNsVC9QGlWg VMmEZclsTPnoGdW4IKp9WW PQPmKtPnXqZbgiSZJ1FAyj KNt9VRs9ARsUZbC7TVE6NW OvHYfvBSKkLmaiUOe5EZZw XFxmIEFyaWFsIFxcZmwgXF ldB12hlYbyyI6iKW8aEB7t xCBfWSDuxM1qAE9aS4VxcU 0uXHBhciANClxlcGljTmVz dERvYzEgDQpcbHRycGFyXG xpbjBccmluMCANClxsdHJj aFxjZjFcZnMyMCBSZWNlaX HkLXPlplBlb2PmWHfhqlBq YWJlbGVkIHdpdGggdGhlIH NocLaaxpPrG5L0vqXvZI0j YITdKIOnH1UaHRMrT58yED GouD1eLRDxCI3pPBd7TCSn FQHoBxaniO3arAVwHKUxaX 7wJFNpF8NbIgIds30lxIT0 mkMyCxTeWQVrlh7doR6mBM Hcpv9mTZHnb4N7ULUsv4C1 PVZvVX29JRtkHZ7kONntUZ 4xIGNtLCAwLjYgeCAwLjMg qVNyKbCjS43wQiVeMGfhLE ZuPWWdrFZiDSawSOE0Sb1d yTQkNTZmkiV6o5MiXSudHC SwUuasMBLdTDtpqJTbGQ7J RGOoYDhedtFoQO0QOWUqCH zcRZTzgYIYGGH7RE1aRJqt yEZazuizPGCzW6VwE3Ylip MtrVUuZNSpxpQnl5rrKTV0 XHNsbXVsdDBcZnMxNlxwYX W3XCa8PAufAKTjJ5OcM5Ym YMeiYHC6WRWfDlByFQDgCV LVOvRhNnCfIoW1Qiy7AnIn IJa0PWurY0IYHZYrISZ7JN X9ELE4GbY2QYc6GJOFPu0f WWLwGJS7UhP1OMX0ZvJ9XS xcdCAyIFxcZiBBcmlhbCBc XZRzLQwlbzC3JVVdVCGfyR kkjT0nEi4vGT4mwCMvRNCz gZ2mRX2aXgthdUVnIBKxMQ 2qsM2oMrsfDHMgCMtrRYEp G82kl7JJp2TaRZ0PLKg1gy SbhueonL6eRKLakwKnIUqr eRNyN9snI8JlODYfYlEpGm HwQJy9JPApzV0ySx4etJTp eY8bkIBhANvtOSJ9aCHiZW DlAFWwNHLsMP28ODjUZQXo bmFtZSwgbWVkaWNhbCByZW NvcmQgbnVtYmVyIGFuZCBc wIfhCoYbGAm8Y5GtsAlkAM Mgr9rhva3lzCqusRUbp7Lb ooBndhywPZHuKXEvk38nyF G9ihWoEkYziOl6jPVqBFU5 OZ8lcYyyncdsqTQcEMv6wD YsDWEaUqZbzTacl3HtEMxj LjQgeCAyLjEgeCAwLjQgY2 4htC4jCIbibkPdGALyMG2q RCEbQBWinWPatF0miyZcbp EmiFJrkAX9HKOcxF4pqP57 iaSwemDEAI5vjGZzRN2NIK BhciANClxjZjBcZnMyMiAN ClxwbGFpblxlcGljTmVzdE EqHwJoeZmilG30ZZRasCXz SSS4DS5dIRNqyhifLRPzOS CeHHT0ONftiU42lJBcHIBo KFFkpNCijX2Jl6reECQjjD LmMSN9RPgmdHOgDXBuXXGo JBidKxHsI6AKKCPgSyHsNM Y6GPHfZLo8LBl4YB9JZhLa CXIzKKLoUsL5GZJbHRj2OI luSR4LXPP0Sut5ZGJ5RIQ7 NTMyOCBcXHQgMiBcXGYgQX TzPZhdLKbluXCiHN2kxHsa yyZ1OURxNIpgJXAuYCAgtG ziGRHAw1vmipBvBTTjH8q8 J9XbX5JeGIilJp4oyCIiOF 9QETGlgYKVBJF2GC0hCISJ ClxsdHJwYXJcbGluMFxyaW 2jNG8GLYi8lwXmSMMyDQdk amYyZQCfE0SdshEkNJsrQQ Skdx5hsTdbDSsjYkJqOAWc t9s0oLT3aZDodPQ0zWDjdV ttKbHmJI8siBIwAG1xLFpg YUohowJft3HhIN23hGTusb NidgHbBDH3IdCiQXznYEOu t4n4qFlrI50co33rsldsmA CwTVLjCS6gtA7eIfHuinFn Y40yg9erxCWpp8UaxFJvrN lwbGUgdGFuLXBpbmssIHBl ZTGuR1CsEBLuICFcd7K7VO Pur5H1AYYeDa70VZqqQf4c GAuhKI97QTXpNNtjXNBgK6 NiL6Q1JDkbZCQIlCSua5Yd B1ipSP3lqZTte2PbvIk7jX WcWOkaRQKldZ7ycA7fBfJd XHBhciANClxwYXIgDQpcY2 YfWFQzEoNdUBvfcWramS8e OVYmF88am6HNu0HsBUVwNB ace6waaJzsd9DbqKRvIRen AVIswUDhJLcjhB7xXePia6 eaiLx5KByrloZ2LYYxeu1A QjpqDdhztEzxb0JoxKNcNW olZAQyNIExQGilFKSkRF2S EbVrHDeFOvgmAOwuXmH0LB e7OJTSGlCeNiMiHdtlTJF8 YfYfZOq9CMf9NMxYUwU1TJ H7ASFzTaCjPACvFfbjOPo8 IDIgXFxmIEFyaWFsIFxcZm prRDtyX46jXiEtKnqedKXw rkEYOnVBa8i7fTnuC27zh8 4iWJPYobIcr7YcdqIfGzof ZPFcOIkpFARcG91ez9QWl0 YsOT8TTLg5rsYqflrjjQ5h TAOksrCiPDfyjFNdU4vzL6 NoPCOgScDdNcDsKMn3KVIa eY7gLu9rkZIurE9alVOoLF jqXLJ0vWSkKWQiQXEfERVb BM40ZKcFEYDtvwZgWYxwcB VkaWNhbCByZWNvcmQgbnVt YmVyIGFuZCBcdTgyMjAgXC o8O5QbiXqvCMSky6mthm17 lbCgn0RidfAbMKDfoAFcFO 2lTvcriB95SGXrTNBsHPIo tYzgMOdfBpGjtnZgC91it2 psaGPhg9QbdTHolBpiuFSu dGFuLXBpbmssIHBlZHVuY3 JaCJYtMIVpx1W6UZRzp6R3 EMLpRd4vLEndQs2mQDogBR 18SWFaYNqzEDJdN0AaS0B7 HFycMBECkUPof5AyI6lfWT 7udTJcq2VrrTe0qJZlOHtj QAZizB9bkQ7oTTEzOGHxHK FkytRLYlnaJWMxVAkOb6Wu iCdxCZOvE3f9b15nX8xraK NzAJGSASV1pPLipsFmjAKl AC8NICZvewGFDqzuUvMqHx MyMiANClxwbGFpblxlcGlj IzQidBHfCeFneBzkjF78CD TbqPTzRAP8FM9yBUPtqaxg QTEvPASyGYL8BVselA68bE AqVBVcUANjiJYggY2KCHBh JNM3IRyexX52iYJmJZ8KFZ ZvWTR7HMYlsASwPQA8KC7n fQ0KfQ== MICROSCOPIC DESCRIPTION n3nlaOWpQBXrgDY2PxNfFI (test code = 3371) Znr3rig8CerNQaqUZuKJgy bOTbfvRkbo23aJW7hF11IU 6wGTZdKfS9XTXdrrZ4Dzy8 CXLlKBWmwDBzO784h4lki4 sstaWdqWB6uWqiGXRkmchr SaN2HOykNEWsocrzVXg8EV roAUXuzNQ9VZZrxZSbW2Bq EQKsPO9gvvq7CFW3QMlrMH LtIiI0WMTzqPPdIBYbtTgt REkbd827WQH9HxOwCQGpvi YlwYrxpZ4lZcLfENJJTWQf g2JcWLRcLOSqvjapXBYhEG Bhcn0= [facility] [id number] 09:50:09 Test Item Value Reference Range Interpretation Comments Case Report (test code Surgical Pathology = 104) Report Case: [id number] Authorizing Provider: Angela Loco Collected: 07/03/2021 03:04 PM MD Brian Ordering Location: [address] Received: 07/06/2021 09:08 AM Service Pathologist: [...] clip x 1 DIAGNOSIS (test code = [id number] 3220) FuZzEwMzNcZnRuYmpcdWMx IHtccnRmMVxlcGljOTYwMV qutzHuSMPcvNWrE5Pctnta TJixKG7uRT1smPrxjGFvtT PlAIRpKhNbc3qtb488fUNk q3fwMHFWaoipeEt2mFzsF3 5mz5M7CbupP39vmEIzKVP3 HGJuYYJdwRSzRMJgUQL3SB LeoTRiA6pzIZCeHB2nnipk XLduRUnvDLXbvLI5EWYqqH XnA5TdMYWqQDczPVMucrx5 IgBrEl7jqQCotIbbAQuwVB QmDJGwLQgnCZGnPyZnIY8g Z57LD48vBJTCS7FCKJRXGX qMQRGWFQ3FX0i6WVLqopLw LSAgVFVCVUxBUiBBREVOT0 8KXJMczpexXIYgHu3lM49W W35rVITJU2nGF2DMM8UKSX lUOhHRE5pVQEevZhzWSHNC TuzrFNDcVV8cKZ9QNBGFXR cGLLHKUPuXXD8LFvFNCbIE CGIEUUTKDHRNQO4POEBjvZ FyICAtICBORUdBVElWRSBG C4TfJQtYTD6GRhYUHFINYL QHQZORZUZxC5IfMMDRXHpO UA9CFYhbLKVpjGMuQGGhCF HAHI4RGZUWTVpEYU8AA4IV IxDWVeqzWZ6SMDTsHGFQH5 BTWTpccGFyICAtICBNVUxU SVBMRSBGUkFHTUVOVFMgT0 ArDBLNYEvYKkYFEQSRO94R XHBhciAgLSAgTkVHQVRJVk MoJw9QLZuAC3qiH2USYPDz QZePOZeSY6jHTQ1RHE9FQA oZGbARG7yrrGMrUEPtsoRx rYMxMPGmRTAJBW1MLSRZPs QUS7FIUrNWRZEQNAbUARSW XR2YO4v2JTMrvnJbLKGiIP FADKlILJNfHcOKR86KBkNF IP8NEYIZLuUVRLRzYASZAj 7WPImcRZTrDT3eDF8KY9QQ SVZFIEZPUiBISUdILUdSQU HXDAJLZ2PBJUUUDYBXVaIK MYuZL50NEzACNSSjml43ZZ F7DfUuj0D2ZWP9TTMvIYTq q5auEQXrgPNwVlMiGdUcHe QtWxokcFAzLRRiOsAop8yq n141xNGjx7wcFXZqLeE5cF UuJBMkoEEaO640EJPsMYpp x5rda0MvGKJslLLjs3X8TW NRghckqUn1hXrhK08zr1P3 NrvaV3kxOJBwQLXyN1JqNW 1tJPFlTyn3NVC0XJZ7AQPo DUWlT0AhXD6sLOIgeXCjEO c0i3gyeDfsSRXwEFZ9a5vq CMjkidGsZD1jyk5jfEg9s8 xjczEgRGVmYXVsdCBQYXJh E3YnlBskBx4ywKv7nLctCp dzSYY6Noy4NO4tpq59nlp2 gIflFRMfwjxeNyF3UNnfVT VprnpoVWw2TKvjMHFmyCR6 TFDxaITcP7CbDNNfIH8fpv d8ZNZ7PQwpFKDxVtW4PNWr jDHwCYLcrOunJTxpj299CY T7OeHjYC4zD0Wea3F4wK8p aXRcZGVmdGFiNzIwXGZvcm 2clASnOUtev6WfJTD2ewB8 zRPbuGUbHTTfPlV1NDwkFR 7wgk18RLNoFDL8wz9bbUKg oHirtkEgzDIaTBymB2IdKJ Sio831TWXjJ3IdUTXed4R0 uuQtUmBpYIUbmRA8dqZ3YR JlFN8saktdz0yiVYidLEhg HHCspdE6qpT7PXJipXJbV7 BzjO1jFDKyKF2fujpfu6su ESH0DDvrAVEpQHH0SeUyMV Fdo0Mrnrx2AiIql1IadIXx AOpxK99fe415YZAjemYcF2 xwbGFpblxwbGFpblxmMFxm bkJ2JBGfKTmlphouMFRcOQ pdD5mtAhGwXZNjqHugSChc f2DwLTUyEEZwThScjIFeAV UkBkl0IFDnrNUrBTGpQoJo N4najzbfGxXXAPCyk2agT9 zrwGSKxBHqT8XmYYzfxaVb QGpuEBoqHMWhBVE1EZ3vTH JdVXSirp07 CPT Code(s) (test code d0wvqJEhUBFibRN6MzWiBV = 3357) Xnk7dte8YtnWOcrZTnCSgu zOVnahTebc07oUA3oA42YK 1qKOHqVfN1DNZldqI7Dvn3 FBTdUBRywQPkU739k1wka8 lupoGhoBA2fTkrSFArrdkb MsY4TNjoIOWqdakbEDp8DL khTDRhqAM8WYGlwRPoN6It FHKbZC5jjif2KWF7HUscLQ SxVwY3FQKbcLLzUAXvpOip KFetg110CSY6XmFtFPRdfi HdcSowhA9dFbMqYAS6AJHh KOn4THBhow6= CLINICAL HISTORY (test g9yrzYCjYIAulEE8KlCuET code = 3356) Gmq4mst0ZcdZHjiBWeCOxf wWDnhoJuwx47zIL9fV45MF 2ePLLjWuY8IORnxzV2Hct8 YHLcSIZstFUvP252u9wvi3 coekGzgCY8DHWxSNKtH6Hn JP6kFNHyqRXcF48tbYKvHY I1ANYtRPYriKVuGQHhFWO6 LABcoHFgS2syTNYyGW6ojl bdZZtoZIijRPTbuLA5VPJt mGWlB8MbVACbTWteWVYrqd f3GuIpOp6inAFdcBntZYiq YXJkXHJpMVxwbGFpblxmcz KrOAAjHAUYqv1sPBOjQxyo ePZkR5ntWG8fuQhwUYL4gu JtCOLeEaroVCCgoh7tLPCk RkkwxZMzF2vlIC8xxPsxIN B5cNSzVHYkke2= GROSS DESCRIPTION (test t8apoYBqVRFqmKUVCGSdNa code = [id number]) ooxsIlSCXpbLTgK8Qxucms OUwqFE7rPD8ysSearYBeqI PdZS3JJULvVhUdLUOgmKZx qfXrCuDdHNQjmYUhpJD4RM FbZL1tjzzeECikWThtKQXy hfR8FZLrrYHiK9FwDULrWE 0ypomrJDJ1JAidsW8eekRY OghqJp0ukMYdrPsqXvXkMj NoYXJzZXQwXGZuaWwgQXJp ZBf8qE7PPlscS40cu1Z3Tf e4HDEwMBQxE6HyTC9wILAk aHOoY94EUwwdXWY1DQQOAb dbKDZlQC3Yo6hlRYLxfBBc GDY1IBkkqOBrVRAjQFKtPM n8LWJkVNmxyQXrVW7whJaf OofpaYdgk7LpdJKmNQsjMA MgIJPiPCnbUMYnOO9NFbJx CHbQBzeaKYnfEfI7QMz2VY AZQrRzQeWqAjjiLXD7UFrl SIb0NHp1KViWFlD3QSZ4CJ EoBXesMKAySqcvHMj0SEAb XFxmIEFyaWFsIFxcZmwgXF agO14udKfqmH1wSI1wBP8p sAJuALRymN2mZN3kT2QyhL 0uXHBhciANClxlcGljTmVz dERvYzEgDQpcbHRycGFyXG xpbjBccmluMCANClxsdHJj aFxjZjFcZnMyMCBSZWNlaX KvAGUmjeHrh9TqCBiujpLd YWJlbGVkIHdpdGggdGhlIH YdgNhbkiJyG5Z4lkWwKF4m UVUpMJHnN7VrHVLiR96yIC TtbN7qEGHjTC4rTXw8NPWz PFJzZnusjR5zvTZfRPJetZ 7gUKTnE0IrDpOqo26zrUO5 haFhLzMhOSKyfx4bsT4sKB Ryyp3fNAPrm5A8GULbz7S2 DPXkQU05EVcpOV0eFHshLB 4xIGNtLCAwLjYgeCAwLjMg zQSaSxVhI69mHhBhGEdsPH KhYSTohJBfTSsgBWH1Wy4d kINxOKErzgN2o3NhIBmqRJ QiKlcxSNCoERoukKFjYR4U CQPlRDxsbcZmHT5WQPDpAF tpGFFzeFRRVKB9XG7aNRuu wHLakdkwGPTnC7LaU9Ylmj WtkCGkUSGmryJii7zqTEX6 XHNsbXVsdDBcZnMxNlxwYX L8SKs4XJcxUSSjK4DoP2Nu RAxdSBT9CYMfSqJaEFIqCZ VZXdHdGlMzGmL2Nfb2ChBo QNn1SBxxD3AJCZRyUIH6OK J1LWM9BkA9NSm1EEVREm2v EQWlLCJ9OrX2DGO4UdP8BB xcdCAyIFxcZiBBcmlhbCBc AZGdLNwsidP1JLMzFKEqpN ozsT9lUy6pRO9djGQtQSVb kR5nFF2vRvhpvHEgJTTeJH 4nfD7vBddgOPSrBCenNCBl Q74gf0EGz0FrGO0OCRj6xf QbasapvR3pBGEgfaNoUTtg xVFdB0szK0RxYSWtVkAuCk LrKMl2NWQpkS3wJh3ivIEs nC0ozLRfWZoeHHW3xNYlKI LsGHUlLVVrAD59IDbOIPJe bmFtZSwgbWVkaWNhbCByZW NvcmQgbnVtYmVyIGFuZCBc pRnoKaIySPq5A8DubFxwGB Sez1ifkc9jmBwlnGXfi1Df hrJxexfvLADbKKZxi16ljQ D3puSuMrJyfFi7cJBqRTM2 GB4raXaqtiwyeYJbGBy1nP UqJKBeOhOptShey7BmNMyw LjQgeCAyLjEgeCAwLjQgY2 8tzD2hSVcyzeSrTZQwIN4w OZVzGXIzeSImiS6jhhLxin EdtNJuyBN3HXRwkW3gdQ68 gmLjfkAPDX5daRQvQH3XSN BhciANClxjZjBcZnMyMiAN ClxwbGFpblxlcGljTmVzdE NxZqYxoWecdI75ASMxbGMt FDU3RU5aUIVgdtldHBVnDE SxNBQ4LCyegA49nATfIAGh WALjzVHhwF5Qa8vhKCHhqT GsDMR4YFkmvTPhREVsUPSb JAldCtQvG9LJPZKuYnMaQK L8OTVzVLu6XFp5LW5JIzKn YOGbSYNzTpK0JNQdBCe8ZI ftSF2KXOA2Jzo4JPA7VEE8 NTMyOCBcXHQgMiBcXGYgQX CuOJulMZbibVYiHH5xxGmc qnE6ADDdKLkxIGNoXUGwnG dgTUNOo2yfpeKrWEUvB9d6 L8YvE3NzQDkyEn5bgOHgGK 4ILKEhrYMXGCI5MW3kFXXC ClxsdHJwYXJcbGluMFxyaW 6eUH8NSZw1gvWbHGTwVFgw emGvBNKsT2BbwuZsRNmiWC Qemc8seSymZJzlTsTuFVCm a1g4uOG6qKPipVL4hYYblS kcUuHjPC9hgSAmGM6xHNhd ENukznUrr0JcBQ80zKSkho AbmkZuGXM4QpJkJDpaSGFk f4f0nXppC86hb99dcgomkU YrKVOzHY6kgR4bPaJvajHv L67gq5pobBMvd7MflDBwuX lwbGUgdGFuLXBpbmssIHBl RWGlB4LaPTLfZOIyi0H2YH Nvb2S9VTAyGx59ZTsfCn2d IRdxIN20KYBpUOthONXbV4 WfI9M0URtsYAVYvZCmm4Mc N7lfBQ5umOWid9GonCa1kG KhIPctFGTumO7sbL4vMfSp XHBhciANClxwYXIgDQpcY2 OfUZTgGfAwGZlbpStivD1n LQHnM97md8YUq9JkKIVpXL ygi5imoAqyf8VwbVDvADcl RDCioEQiBXgdeA3oTdAki9 jerCs6KPawneK5WTYgtg8Q SfwwLjcuoTzvm7OjyBIsPB bcOFIxBDDhBDnpFOKuCI1V ClTwQHcWQihbASfyCnZ1WX q6MFFKBvTrAjThFyhzRNH2 FcXlSTb6ZNh0FFcIMoB5EU F7TNNxQmPuOOKmRzicYGv3 IDIgXFxmIEFyaWFsIFxcZm inAOrhU71jRrLyMhkdlFDh qoKBOfPDy2k3gIhfF54qj7 3vJPNEruNoi9QbeuZxEhix TCXmERuvGWZlY71sq4YGw9 HqFT5PJQj6isPmswfbaK3k CZVwudNyMHjwrPRgM5lfV5 MaFVZfGsNlUyIrNSw3WEUo fD0yQz4dhORifS9hxTUiML pbRIF5tCPfLPDmNMRgUQCg EI76DElUTZKcapSlDMxwcH VkaWNhbCByZWNvcmQgbnVt YmVyIGFuZCBcdTgyMjAgXC y5D9IecVxfNODnd3hpru06 kcNrh3GdmeKsRDXlcKLfGZ 7uBaooiA52NLTcGYGoIAXa tTqkAQdvZqRnpwAcM97px1 knyJRxz5GejLTezXrhcGNb dGFuLXBpbmssIHBlZHVuY3 UtYPMyJVJjq8J4OIKyq2M4 QZKfWf1nJAioHs6yKXedDZ 66MESzJKsuCNNwW6LuL1G9 QSoiZHAYmCJnx1WdT5vuQC 3ypIOlm1NtvWy5fQMgWQrf XLZfmV2baP6iEGFoUSDqSF RaadSQSrfzJLGoCLcOs8Ju kIomANLiD5a4a24fF1euyD CaLEWVNDE5bREhfuWjkOHf SQ8SMOYstvZPVhnpMdXnFq MyMiANClxwbGFpblxlcGlj FpNahVVnSnWqsMiaeT36IT MwbADuLME1KP5mRCRtzppz FKVvXOQyHLX5JPaaxN09xV NgBRNjPNWogTLowC2DLDVh TTJ3YCvnaO30nDWaBJ8QEG KcUEY6PMAgfWBaIPR1XT9f fQ0KfQ== MICROSCOPIC DESCRIPTION u7hugFBiTEYroCY2SjAsER (test code = 3371) Wvl5svn5LauZAujHLdVHqx qCHdtjCkom02jTA3yG00MK 5eZEKaScR0VPFknuH4Vyl5 CRTfMPQpwCScP632q4cbm9 pcajLhiHQ8yHcmSMYrzccq SqS5XIjrAJXknwliTCj4QR nrPCFnpXO7FSIeeOWiT5Du EXNtOB3nsac5TFX2GBlmDE YqYjH5LZHfsLReTMTgcCzr REhdb814PLQ5SxZeVLGzfh KdjMaxkN8yEfDbGDJVRDGy w3ObOMGoXWYibofbFMReQV Bhcn0= [facility] [id number] 09:50:09 Test Item Value Reference Range Interpretation Comments Case Report (test code Surgical Pathology = 104) Report Case: [id number] Authorizing Provider: Angela Loco Collected: 07/03/2021 03:04 PM MD Brian Ordering Location: [address] Received: 07/06/2021 09:08 AM Service Pathologist: [...] clip x 1 DIAGNOSIS (test code = [id number] 3220) FuZzEwMzNcZnRuYmpcdWMx IHtccnRmMVxlcGljOTYwMV tngqUdQGYjaHTnU2Jmuazs WApyFE2hRF4vuJqkpMBnoT AdOLTeSrQhh0ttk256mMBx j3bwJCYFrprltOa8lRfkM4 2rm3T7KmjgC99ozWZpRAU7 VTHtHOTmkTLvSHSdRUS4RS ChlSCwK3thQYPpYB2ledop NOufJOsfCGEmmVN9RGWiyN KcO9HuRRFmXMdoMDZdpwf1 TbMoNx6wqKNyxCpzBEftJC BzGJZaOFqjGDOpZbJuZW3a F18JT17uULEQX2FKNIEECJ lGZLWOKD5AW5f5BHPadzAa LSAgVFVCVUxBUiBBREVOT0 9TYYJzodxxPOKzNd8oF20C K46pHUZZH3cTC1NST9GEDQ qLHuHYV7vYPCrbTrnRGFNQ EubhRZUiIZ9kAF8FKOVRGN pWLRUNFOwMWC4XJqRLSbTZ QHUMSNYJKLOPFI2ABGWfqD FyICAtICBORUdBVElWRSBG T1HcFBvJMM5NTgOHMKAVXF RECVBMPTOqT4MkVVGOXMlB YC7URTzrPLQduDTrQJInNE GMZP8WVKBPVDoVCC2EO4MK CrOPGskyBS5NUUTmYTNWW7 BTWTpccGFyICAtICBNVUxU SVBMRSBGUkFHTUVOVFMgT0 YhAUFYBFoLZuLECVHUH67T XHBhciAgLSAgTkVHQVRJVk CyOq8DLBrFL4eiS3SZTEKw AHrNNDhYK9iEQP1MWW0HBJ bMJfURG0hpcZIhVKMiiqVg hXVtHKNnFXCPTW1CZHDGMd RNH0BWBeCQBKQERTgSANQW FH0FP6m5TGFffnRcKEAxZJ FMLAvTSTFsLqEBE13UDnQO RY1YQCGZBdNHJZNwNUODZa 0OIZzeOQGyRZ8sDH4AX7DN SVZFIEZPUiBISUdILUdSQU HZYXQSL3TXZWZJVVGVNuCV SQgET11OEtEPZNDzka29HZ W9IxFyx0D9DVD8QCVfUURr h7ihXUDmkJOmNrFnUaNrYj NuHvmqeEHvOCMbQhYih5yu c858uOZsb6hyJTJoNwU0wL IlSRJflTKvG244AOArXVfk i4srn1GjQPXpmFSym1Q2YP ZDhupgzQk2mVagL35px4V4 SecyJ9xdBFHhDOMeF7RnFF 5sESNxLxb2QIX6XIA4QYKu JNMvW3WlQO7kNZSxvCHlYL e2l8ctlEbsSWNgRBI6b6ee CVklqbTpRP9ynt7mqZe5v9 xjczEgRGVmYXVsdCBQYXJh R1DxbQpzLt2kuCb6fUicVv jjZSH0Gsd2SD3ksl59zrn6 xTyvJQVvtvlkHjZ3SVajPJ KdnsrnAKx3SQynWJSemWE1 KICnwUCnD8CvFPWoTH5swm u6FOV3FXnzXTBuEjA5PWHg jCBcHSGuhKrgKHwnw689AC B6CmKcER4nE6Ayc3U9qZ5e aXRcZGVmdGFiNzIwXGZvcm 1ngVUsJXhyk0SsFFS4jcK2 wMFhrXAzNGLnAfA3CDfkXA 2kad75BZSkWZN0zv8hxEPe hHdlhfJebUXzVKcvG3IbWB Eln825TXLbJ7RxJSQfk2V0 ohPfMtKnDLHysLM3dfA4TJ UcVX1sndbia8gzLTkoYFci ACWcvgS0uxX6UJClbXLdN5 VokM5eNFOcQT9drrtqq0lp AVL4TBtlIDQvHJX5BrXtLW Oss1Kelpr1OlAyj2BvkSLi AVdtQ29zs608BECyngDdF7 xwbGFpblxwbGFpblxmMFxm juB3LOAuTUqouxjvXAQwMI avY8hdTfRpHJCprMrbUYtd j6UxOQJqXDCgExCdeXDsQP UnBiz9SZVkmCGuRORgWjKe U3xehrirXiDTSRShr1hvU0 smhXIChMSfP8IcUBmeeoUm ZCzuPXrgSVVqGKD0RH6xKS OmTWGorn40 CPT Code(s) (test code i2wcgTMlHTInvYU0QsRcYW = 3357) Syw4clx7YfnPDqbAUxQCse lDEjcoRnyz14gYV1tD00HK 6lMRXmVpA7VEUrifA3Dwl0 EITjUZFuaESgP567d9nyh3 vojtUzsJL0aIhaRWEekavq QwP3MLueBWVgiikdYSp8LF alVBXpnDU4APSvxNAoX8Nm VDLoJN8nskl0FPX8WThdDJ TpQsT3CSAcyHVlFVQeeTbg CMrvx367GEV6HbUwEUGohc UovXbxgZ9wGjZsGUL3YVYd CKw9AFEeem2= CLINICAL HISTORY (test d8cpjYGxQNPesHQ2QdOjRY code = 3356) Nbf6bua6RpiUQosJEsYUde wHHjdsRere12gPY3xR49NG 3tRNXcUiQ7FEYlblQ6Dzb6 AGRrAECrtKPpY790n4iop0 srvmNouEU8ENTgAOVpY6Zc AC0fOSLspPSlJ63bbPSaQJ G5HVEtNCMocPVkMYYwRVB7 FGSotBNuE9rjRFIuOG0cim tdKHujWHarGRSrhTU2NIXu gFWvB4EhEIBbDZnpJTHyln v0TrTbNa2oqUCwpQkqEKqg YXJkXHJpMVxwbGFpblxmcz CiZZKaIARLzg8xIDTfAnwr oJNsS9rlZK2mhYefRMV2hx ViIYLiQywaHBPzzx0aBEOq YjqxfHNzW6njKO9gdNqgYM V6uYKzXDPvul6= GROSS DESCRIPTION (test h1ecmVIfTJPrtGFQHHVkWd code = [id number]) bhcjCjWTGogKGwO8Wnkemq LHwsVN0wPA0spGbbyILvwR GwSH4XZRDoXlKmCTIrfTQl dmVpGdBdDQQhiVNeiWJ8AR JoBA6mjfehDSheKLzwOHZl uzU1LDSuoTHkL7EjKVOqJX 2dsimfOEX9ZYcuhO1mnkBE RgazKz3ijSFcuXmiPdZpBy NoYXJzZXQwXGZuaWwgQXJp DWl1rS0SCjcfQ70yd2E2Vf e0QJBdTSTaM7LrVW4xMZNu wPVjG69QVholEMC5MHRMBh bfYWNwDA0Zt0lhEPCsjYVy ZDS1JEvikZMqPZWiEGZyAM m7GFTpZWlmkANcLE7lhLxs JsnzcLame6EbtBOtTGgbIU GfRKPdQRruYQVzBK1JGeSk DVxIOtawYUysDnB6RZi0TO FSPbDwLvZnYlwnEJY1POme SJi5PUz0GXpJXxW2SNA2UW FiFLrdUGPgQzxwNSs9WPKo XFxmIEFyaWFsIFxcZmwgXF gbK27dzEeslE1yZU6zEH5q pJSlZVWmfZ0aBM2dE3QaaQ 0uXHBhciANClxlcGljTmVz dERvYzEgDQpcbHRycGFyXG xpbjBccmluMCANClxsdHJj aFxjZjFcZnMyMCBSZWNlaX WpKWFqngJkf3ImMOnvulEf YWJlbGVkIHdpdGggdGhlIH TlhHytwfTpI9V8aoMfND7y MTAoXRFkE3KnHCXnQ11dGJ VidJ1pOWNsTT9qGRg8EIFf AEJoFdfbbS3gyMAeITSlkV 8lDXMlC2LiZwIfj78fjES7 mxQzJlZgMQNjvw1wfN4vGA Uzdy8vOTDxb5M8XSCqm6Y1 BBYmFP47TWjlVH4oTClhOK 4xIGNtLCAwLjYgeCAwLjMg qBOqHlJoW10cHuKqWRnvYD KeXVOwbNPqTPcqSLT7Um6r fDQyYHXkzrO3r4EhZVroAC YkCsdnPAUzAHsojFDzGO5Y JQRoWDjmbbQdIY3FSQDqPY meLPInmWYUGWJ2KT5dLByq rIDdoovnXPJvS3NeW7Yjac YxmBMiTUAaqxWxf6vsRFH4 XHNsbXVsdDBcZnMxNlxwYX B2AOa1RLllKLEwU9QbI6Ui UAojVSM2SDGuUhYkOBJpDV LRFwCoUbSiYfS4Ghx8SfXl GXu6BXxsZ6UXFWHsCQM0RF P6COC5MrA9VDs6GVZNDy5w WQObOWY7YjX7WJQ1GnW9XP xcdCAyIFxcZiBBcmlhbCBc KLZmUTfsktY2NCVfMWDfsA szjT8wVq0gAF5hyBDkCIXi bC7bKS0oLjathEFxJICoRY 2lwY8vUhkhYYDmIOosEMBh H93jy0NTe3TcUJ2XQCm8og QanggqvK4gMOZfatCjIXkt kLJqE3ogL7VhUURqMpWxKe XeHQb4ISBirX1sJx9gfEQc nD2uyQWbFWqjIXN4gUUcQP ItCUVsEDBoSP41PPjIYVWe bmFtZSwgbWVkaWNhbCByZW NvcmQgbnVtYmVyIGFuZCBc sGrmJpYvFYb9A9LvoMxlCP Wur6xxuh8znCjawHJgn8Kp jgNxzjidTCNfFMRtv64wxJ B5vuNbKoHbwAy7zTPrWKA1 WA1pzIkopvdumAQiOUv2wD UkSGSqJjZdgVgso5MnHSye LjQgeCAyLjEgeCAwLjQgY2 8oeA3jWWmpltLnWKJkKC2s MTTiXSVkfJGhtO6awoFkqx FbkUGozBO4KHPwnP0otJ71 woInwxAVCP6hxWTlPV2BZL BhciANClxjZjBcZnMyMiAN ClxwbGFpblxlcGljTmVzdE ZiOaKpgOlcrB47SJEwkKNw FUF9MV1pNMUrodaeHGZcFK LtEWI7CZxzeE07iFQmHLQl JSCusGJcmT8Ap1mqVNRlkW NeAUE7ABllvUCtEZOuZOVg WTxjHcEoB2TQRAYnMyEhZH A5TVCtHQi5BJr2SB7HXgXh TOEkQLHyKzB6ILPoUSd4LS cdVH2IJED2Ouy9PSA2OBF5 NTMyOCBcXHQgMiBcXGYgQX BfJYuwASldaENgUS2yaRep zdT9RIPtEPrfVSEoWXSoqC jyIPAXh0temjRzRHNmO4k1 T6GfF9SwCVzgZz0tjJMhMG 2DPLDnzTTIPFQ3KC3ePXVY ClxsdHJwYXJcbGluMFxyaW 6hLL4CLKm4kjFxDCLjZYij pnFuSKBkX0EkrxDxJKwwVS Iayq3ozLpjWZbcSvJsTMGz p4l0vBL3tPAenMJ5vNMkmV bwIzHjXO6npSBwFC2oYJto PNvcgrSii9GkYM42kDUxqw NaqzOdICA7HhRfBZcuXVHn q8k9aCtoR56wa81plgolvG YjUIYsDZ7jzE4aRnAsokMg W68qj5nalMDci7ZntAHemJ lwbGUgdGFuLXBpbmssIHBl HLFjB1OfLGSxMHKra5R9IN Jsm5U0VDNnWj36KNcbGv2q ZRrtLX64SOUmCKmkSZNjN4 DnE9K9OUxvBSSTjACvs9St L3ytGU8cwFIhk9TokFj5uY NyCHtlZVItnS9tcU0uUwGs XHBhciANClxwYXIgDQpcY2 YeBFElRkLmLIkutVifkN8m HPBkW37xo1KCt0PtHWXcAF ari7mqgJrqb7TyaNTwVGra JBDepWJcEZdehK9tSjWqy3 qvqZl2ZWjbhtN0MSSehk1P RnfhOpommDdrh3RfiARtDX ibPQAeRRMcXXujANDsQH1X OfJaDBjMNfjyBHhpHdZ3PZ m5SCZVUqLdSxQjQrbfYSW9 PyAfGJt8WTw2AFeBPfQ9SG S6JRWtVnZiKHPaEhzsAPw8 IDIgXFxmIEFyaWFsIFxcZm rjIIauR92oDmUpZsmzmMOl wuUIXyRDn4w9jTfkH49kj1 3qWBREpoYvb8JjopFcYfaw CMIhSJtbEHSoZ57ru6VXo9 XzAE3RPCz9nfLuqpejqX6t SXQzcaTdSRmzbLSaY3jyX7 MbCAEtHrPmQlKtEZd9KCXe lD2lRy0sbIBusY3wqJZtHL kxFCJ3rOQoZRAtWKKgRZUc GL01FCmLWWKlmvKpFBvknQ VkaWNhbCByZWNvcmQgbnVt YmVyIGFuZCBcdTgyMjAgXC g1E9EiaBejUNUec6tsfz79 reBsm6DwhcRlVLJdoYDcUJ 0fTrnenG88BVApGRGsRUDs hKxjQKjeNoSctgJrF46bp4 vqsMQnl1BcvABsaSrnyXLv dGFuLXBpbmssIHBlZHVuY3 NxJBTuFFZoh2E9PWXjb1V2 NQJlLw7oDOvbFh9fPCvmSX 87JPCfAIvfLGVdY3CzI9H6 EMapIANKdGPjd0TrN8owNI 2zeQBei2QtuJo6lVQqFGst WLLgoJ9kpX7bGHUuZTFvZJ UulsQDXxooPMNmXZmTs0Tr mFbwREBmR0j3l30lB3iizL VyKVRFNOG8uMFqowNcpZBm WK5HKUTklvEIQjzsUgVkMv MyMiANClxwbGFpblxlcGlj XyZlbHEeFuUhbIzfgS86CL PweQKkFGA1XP4zWDDvvpoy TCMkTIMsEFO9IRidfJ59mT YfKGZrPOJrvPOdqB9MJXWr TEH6CYcfpJ89hSZvCL5LCF UjTLY6XUHsnLTqFHG9YR8a fQ0KfQ== MICROSCOPIC DESCRIPTION h1oauFApXZQynFO7EoMsRL (test code = 3371) Nod0spa9DdrWKgxKOqHQxl dDMvmuCoog31vLJ8yA09QS 2zBPVpGaV8FELatfO9Wzj5 SGMjDERjcAQgD972w3nsv1 wqkgRpmOE8gSokCTQdndkn FwR7JTtfVBJpqbkjMNt7QZ ajDEOzbYF8SPJexWVkX4Pm YOFeGZ0tgke7TSI5WIpqQR AtZxF7NGVyfVStNRTacEvf JDpzb813NAE3HvZpTWGper LepWnmjH7xApYiQFAADZNy x6DeQYGyRUOgyibwTIHhLJ Bhcn0= [facility] [id number] 09:50:09 Test Item Value Reference Range Interpretation Comments Case Report (test code Surgical Pathology = 104) Report Case: [id number] Authorizing Provider: Angela Loco Collected: 07/03/2021 03:04 PM MD Brian Ordering Location: [address] Received: 07/06/2021 09:08 AM Service Pathologist: [...] clip x 1 DIAGNOSIS (test code = [id number] 3220) FuZzEwMzNcZnRuYmpcdWMx IHtccnRmMVxlcGljOTYwMV jdjlPsGVZmjMKyQ7Xfagrz BBgcLX3qIC4plJwluAMrqI KcCEIlEnWcn4yyf481rXYe i5jfHZGBfghraDf1lAueP0 7py5E7AenlG49njIUhLVA9 CQVkICXvyZUyOHBwPYU4HB KgiNQcD9fcVMQuHH7aougk CNqkSTqrYISfnSX6CKDbeL RiH2YsOSLwQCoeRKFhjff0 EdFjCw1peSCehLwvWPneIG NpMNUcATglDDHyTsWgCV1a T94XT96jTVOBI0NPURGGLN sNQMNYHL7RA7n3ZKApjrSd LSAgVFVCVUxBUiBBREVOT0 8UGPYvxcdpLDYyRq0yO30I V62rNPLTQ9iLD9XEX8CFOA yAGbNLK0rKMDdsSwwURVWR YzwjVOTnQX3oHD3GMQPMVM fQVGFNFWsFRM3CUxXRFgJV PCVTSBHQVPDNCS9XKPZwdV FyICAtICBORUdBVElWRSBG F6QnPUvNMJ5CLxUHDXEHYV WXFAMISKDwG5SdFPFJHFzH BH2ECUacOQRrdKWgUNJqQY DXWJ5OKHWRZKqIUS0UD6SA HpEKWvigMR6THTAmCBTQX2 BTWTpccGFyICAtICBNVUxU SVBMRSBGUkFHTUVOVFMgT0 DwJXCMWBhWSnAYOLKGI71A XHBhciAgLSAgTkVHQVRJVk AtSw7TYBnAK7eaV8SWMKOo YDpZXSzWU9kVSC4VDL1CIY jSWbHMO3iteVRbOWJqqnPj cKVxDOUaTBFMZU5KYCMBHt YBY8BAAlTDDRRCZIuCBSIE PV4JH7y2UFOrbeTtUTTaLK QTYGcOWYEjAfWJX71AJgBB RK9PUWEJKfTCWDThVRUGCx 4ZIGfvMGKqGK9vFJ8IG7TJ SVZFIEZPUiBISUdILUdSQU DKALKCF2UPFLWLZMFMKiXR KVrTZ81TZdOQPNAnjs86SG X7BeZkh0R7EIW5LTHyTQMo n0bvEBIrnJVmMrXpRfCtFu MhXhoyzUKbNCDmJyAki1pu z028vIDmo7mzJOUwZnI5gQ VvNODqaLGbR360RPEnJRdi n9whb5UkLKCkpOUyy4K1DW BZqhifaIu8nSfnJ92ox9T0 WrvdA2arFAZhUPIfS4CjGB 8tSHHrXpn0SWC9QED7WKVm BPMoE1UwFI9vCGRibWNbYC l0s0imlEeaTJLdVNP6l3ke RKuivePlRW5odo9vePl8b8 xjczEgRGVmYXVsdCBQYXJh A5HxtEjzQv9haKh7hXaiFk flDON5Ycm0RU3kox15xlr2 zRktNGGitkvpRiH2YQwsYL EdlcplLXv5ZZocJFDloCK3 ZNWtiNOzJ6TsHUZjLY7qkd k3JHP6YFjbAZPpHkI2DWTx dHNcNMVdtWerEYspt064HS M0BxUuWH3fF0Lqn2B3mB4i aXRcZGVmdGFiNzIwXGZvcm 8njZBeVFmju8UwMWZ5pwG9 mUUgmNUbBRVfQyK1IMauXG 9kxj87EZCnQCJ0ok5nwDJi bMelhkQndANbNXlyL2LxAT Njr629OMTbJ0SeIMBtv4B8 scFjLfQmRLGbrQR8sqR8MB GyTR0zqzcin5cgWFrwEHds EGFtzuT3sgD5SGIhbKVgE3 SywU3nVRKtRS6mjrcqo3og SLD7BYseQDHnADW7TsLzLN Vxw7Hibwp0SfQht2PjsXZl QGchJ13iq245XCGjpmDbY1 xwbGFpblxwbGFpblxmMFxm wtY6TVRuXRnadovaTDHwSW meA2hqStGlKQItoFxiIKqu o9AvTWDgLMKhGrWknBAqOF SvHnr5LURpcLHaMLGqCmSm U3riffqyPwDHSSZph6ctF5 sdhRWYyFNgO7QmXMeoclCi XRirPGlaIGKlCEV1AP1wXN NtVGCxdh24 CPT Code(s) (test code e4mjnVCkDJCphZC0TzOkGD = 3357) Bxn9pic3UafBGgmDTzEFbm eSNhhfHwxi60bGB2fH78DO 4gXDUaVvL1FXEfhiJ7Fjb6 GTUzQBDjbGHyA380u4cvd7 tgtrUrkUO2gGxmVZEfxnvd QvH5DPhuCKLewygpOUq9WH hjQERjyUM0ZIQrwZLjY5Rf FNOfWH2olcm7MMD1VUnsFJ KkKhE8FEYyzKMyCQHzwTsj BSuyp691FHE4UfTzXBJzev LumEvwxP3wRuMrHZG0QSSr PUe3CLMqyy7= CLINICAL HISTORY (test l5mrhBRhCVRynQL8QhNrFC code = 3356) Fcz2njo2WcwVSgmFXiRNze bFXyjmPxdr87nDC7eE41ZS 2xORBmMpV7BOAbggH5Mek1 EEVoMFJfaIKmW045b1gxs1 wyogSchSW7CEUvVKNxQ0Bn ZY3hIVCpbYLdT55gjMEcJY S1ZGUqXBPigOTbMMWuISX6 KRSlyITrX8pwMMNlHX3ytb szVTakKLliQMYclIP9WKIu zOYkW3CjYHPiNNknADXfxg c8WlVcVg6igQQogRitNVwl YXJkXHJpMVxwbGFpblxmcz PaPPNdXUMAlm9iMDKwNruc gXUdH3faWF2jyQeaQJU8ju ZvMEVmQxcmZRXfgq2rGCKb TolbbAWqB1ldHQ0boLafMX G8lAFmFDOjxb9= GROSS DESCRIPTION (test v4ltfDOjLQNepSOLBANvEc code = [id number]) deslDtITFnsBEzP6Wvoysb CKteIG5xSE7zgApeiMGnrR CsAA6ZWECyGtQcBCZykHBm opQlKgBjHWTiiXPxiRW8FK WiIR2njkhuIWnpEUupGPPv zjF9HCWtnYXdT3JhBLRjYM 9joglfXJK4YGqjzF8jitTO XuloTw0jwHUusNwpJgTtCy NoYXJzZXQwXGZuaWwgQXJp ZBn4sK0TVdzwW36rq1W1Xm t3UURpEKKoN5EcYY3aBCKf qMHdJ40VZqouKPS7EZTFLw dyRRHwHY0Gc5vpJWSjvPFe SUJ5ELuboCMnCAEtGJXfAS l0SWCyJVfaeSIvAR9guRur OnrjoGmcb3ZfiNCtQOvhER JaPYNwALmrVKXgIN3MEaKn UFuVYgozWQaaWxO3PJm8YD KSEnXaFvRaQsmgQUJ3IYyw WLw7HCw8VOnGTwK6WSY3EN GsWOvrHHRePukcPSz0BXDk XFxmIEFyaWFsIFxcZmwgXF reZ33nhExxmA8mWX7tBX7y pGCgTPKklH9iXV2vJ8QznR 0uXHBhciANClxlcGljTmVz dERvYzEgDQpcbHRycGFyXG xpbjBccmluMCANClxsdHJj aFxjZjFcZnMyMCBSZWNlaX LvQJGnjeQhe5PcQVsantCs YWJlbGVkIHdpdGggdGhlIH ZwtSehuhOrX7S8jgUyZT4h FJDgCJNtQ7UsZQQwD78pVM OobX1uOHAaGO0fHDp9FREi SRMoIrejvM7ayZQkLGTlqU 6fYLVmZ6OaEdEas39ioYE6 euNbRmEjDGZqps5gcL7hZQ Tfja2gXZOrp5E8VFAmq5Q7 WRCvPE69NSfkHH3wHZtnOG 4xIGNtLCAwLjYgeCAwLjMg uATkOhPzH11dDzNvPXyvDP LkHQFnmTNbOTveNYK5Ph0w jDTyJNLwbuP2h1JuDEroXY MeMrjsVLRbSGuxqINvJV3F DVIyIGjzlzFsKP4HFDKdZS ozWAEvpLCIBYZ8BV2rIHwd qVFetlkpKNYxJ9JxK0Mxfm JfuFPeLRYznyMmk8gaATV2 XHNsbXVsdDBcZnMxNlxwYX I9DNr4GNweCBRyE1BtI7Un CQbuWZL8IEIsRsRyMQEfPI HZKiAtUkXvKwU4Umu5FzSi NPr6IPfjX7GXKSMsCGT0WY X0ZGP2SaQ5HRy8FAXWVr0o TJFkUDK0OhE0NSN8WkU6TK xcdCAyIFxcZiBBcmlhbCBc VGIlLQhrhgQ8QJWaUBMybC jcdA8tYn2cAL1afEBdTXFv eG4qLU6fRhnooNKdOYGvNI 3ghD7fBtohNSKtGHjkHIAa Y07cc0FHa8QhYB4WROs5hy ArjpntjM6nGJZiinPvCAvu xOLiJ5mtD6KmHMNoWpKkCf IeAIz0QKDdbV3gMy5skZYe xX6dcVYtNWrtGYS5oRNxRF JpXIWdQKGbWD77YYwUQRUr bmFtZSwgbWVkaWNhbCByZW NvcmQgbnVtYmVyIGFuZCBc kEqoYhPmJCp4G6IbrUqtDY Ush8fagn4enBxunQJvr5Wp cjZgbswqPTCpOYUxx87voF S5gvPrOpZhzCl8iPLsGXX4 LY9tcYdiltcmsXOeJXq8mB GbTCMlSdPmvBabs4AtORrj LjQgeCAyLjEgeCAwLjQgY2 2hvB2wJTddzzNbXPStWC2d XPLuFLBcjUHyoO1wosJmmr FckVReyBN9OAVwyO5jgX86 rnVgayFHSX0jjWPuSB1UMU BhciANClxjZjBcZnMyMiAN ClxwbGFpblxlcGljTmVzdE XiRcFdtUrvtS95AEVnpJJk SGK9MT1iWHWupivgKIVgQD JdEBT6MWqepM97uZUbFVXl VWKydYLpcL9Wf1mnHMXujD TjQPD9YYxogUMrIBGwQQYl QYbbYzIqT4LVDQLjQlGxNG U3NECoDKp9DYd8BB5ZRjAb UMOuRFQsVdS0SAMnRGz5RK ubYE1WHVB9Uaf4BJQ0SUH9 NTMyOCBcXHQgMiBcXGYgQX WkQSgzVCdydIOdBF0skQnw ctH4HOAfEAibYDJxDILzcU iwIXNUt0inkfWsQTShI5k4 O8VwT0SaCYkyGa5ptWZyUE 5MKOPsaWSLPLG9VI0lDEWK ClxsdHJwYXJcbGluMFxyaW 5hEV3WHNg5weLmMBMxYRdr zcOxIMNvX5VfinNoOWopOA Cztb0lwNocXDcfJwAlSBDs z0p6dQX1sNGpfMX6hIQdiJ vzQhNvFW0ovJEyRU4pXSvl LMxjdcBpc0FkXE82pSBdes SlntTcNKG9FhDcSCkjOIVy a4o7mItlI66ii75kslsptF IePRCeLG0qmX1pSgKewxHu I27ip0hrqOJpj6GlpSWwsZ lwbGUgdGFuLXBpbmssIHBl MQIgG7LoAPDdLQZhz6O9PN Uqa0A6WGDnSu54LMwvUe7f DQcyBA81ITMtNQgdCBVpD7 LuQ4L2SMmbCYFTqFZbz7Xf V7wsLK7tuMSxk2NxkPp4uY KgECozYECqcJ7riX3eJoRj XHBhciANClxwYXIgDQpcY2 VfALHfKoEoSXykgXvkaP9v PLWbR63fx0FYy6ByXMAfKN xjg2xxtQbxo6GqvIElCDil TVDgaDApTCtdvF8tKsUyr5 yiqRn6QFytrpH3XHFmiv9Z SfroBibjoGffg4RkuVGsTP osDQByCKSaQSncGDPxWI2U WfDxELwOOuxpDQuqIjZ2FB f8RSGDMeEvLvLxTkxhWMN3 DbGxSIl4VZr4KPtJAwM5SL T9SQFhBoUaJFVjZnotIWn9 IDIgXFxmIEFyaWFsIFxcZm dsZUzxA71bRcGmSxzjgIGh nbWRJsKZk4y5dCirB96pq2 6cKJLAbcVkc3AoxnRuGyll CMAcOEpaFLZuN09oa9BGa6 JhOS8MSRk0seTtxvimiZ8z KKNhtmKxJLnohJPhH8nkJ3 YqESGdZbUvBdQnOEx0LFMz eR1xPi8crZJwoL0akCIoZH pvIBK6aOJrAIYkBWEaCGBh AJ17KQtDTELhbtBkPAeylI VkaWNhbCByZWNvcmQgbnVt YmVyIGFuZCBcdTgyMjAgXC p2V7XdqWvqIKLzc5xioq77 jqFnz4IpvmUgSEFlxLKvLX 9xFbqdwO61PMZbWSWgADFd aFfsSUydUeCzttEwE99xh1 ghsJRcb4LcrRTzuWoneOFw dGFuLXBpbmssIHBlZHVuY3 JnTHDqKMZlo5Q1BKZjl6W8 XXNrNa4pONyyVr8uQNiyJP 97FOThFFeqONBiE8UdU5Q1 UCskLTORrIGik6WxV0zvAC 0owQJfc6OceMd0wBQcIHul RERvdG0jrQ6xDQUbNOZxPU FjuwASBxzpXXEbGWnXh6Fz oXbnHAJfX5l4s62dV3gquJ QsDRZQYQA6dJCdlkAzpDOn VL0YOEDnuuHXVxhmRuUeUb MyMiANClxwbGFpblxlcGlj KyFxeDPhIoXfeFyntK30QX UeyTSwCZU6BY4bHMVrbzhm FPXcCQSwAUP3RFiknD01oK LvMLTxLHAcgTVehA4RYVPt PFX5FFkqzE09sFXgMI7DCT GpAVS9SLPvzOBrSOK4NG6g fQ0KfQ== MICROSCOPIC DESCRIPTION f8qaoSSpIOJzeOS1XvLlLT (test code = 3371) Uxl0tch0ThlLHpbMPxLFbk mUAtcoUvbu84fZM3sU94GP 7xJJCjSvW2NTRqcdQ7Pjg7 WHKkIWSycZPrJ983w4atx6 aavwTbcPV0cPrwEBSbciak SiS8WGamFRPpzboaTNm0QL iiKQStbRS3SBLgwCLoD8Af UBCoHQ3hsfl9EXQ9YGfpPP YnOuQ4TZWlqKTzUILrlMgk RDtty476IZG1CfOjSLYoas QqeAioqN3tLsXkYALMYCRr a8QaMBFnQECautfvBFMiTW Bhcn0= [facility] [id number] 09:50:09 Test Item Value Reference Range Interpretation Comments Case Report (test code Surgical Pathology = 104) Report Case: [id number] Authorizing Provider: Angela Loco Collected: 07/03/2021 03:04 PM MD Brian Ordering Location: [address] Received: 07/06/2021 09:08 AM Service Pathologist: [...] clip x 1 DIAGNOSIS (test code = [id number] 3220) FuZzEwMzNcZnRuYmpcdWMx IHtccnRmMVxlcGljOTYwMV jwgwQsOJUrsIFcJ9Lflwyn UGztSL8aNX2zmLugiUCoxV VgOOScNjXie5fly658rLRe e7veAOMAoqyoyUa6rBpmA7 9nn0Q1PbymQ21pwRUuRDS8 VXHrJREueRKuKEAbYRW1IV WtzQTmC7reNNPtEL6vlttr LVqxCKfxHYKgoTH5KIAnhT VvL1SgAFToOMuoOBOykme6 OeFnJg1huUCaaRvpJJgrQV WhVNVsVEgqFGSsIzHbFQ5w T62SJ36vKIYBD6WPKQUEIC mLRUPYQB5LY7u6CWUagnKd LSAgVFVCVUxBUiBBREVOT0 6JQWAjfpelXYDeTk2nD27Q N40jEFTDD1nJK5VAI0CIVN lQJdBYU1xSOWxqYrkGNNRF YbmmPVQiGJ8mAT6DZZKPRA yGZRBWDDrFZH5OJjQQGnTL RJCZRDNRDCSEDB3WOTPvzJ FyICAtICBORUdBVElWRSBG U0OwQQiEXR1DNfCNUMJBTO PFBEPRGHRdU7BxWQADSThY FS9BLQfvRCHtcREkJPUdFG MRSD2YXGBOLRfJQF4JA7GI SrFSAfdvQG8BOBSuPCFMC7 BTWTpccGFyICAtICBNVUxU SVBMRSBGUkFHTUVOVFMgT0 QxQIBUOZuVTbTCDALYN91T XHBhciAgLSAgTkVHQVRJVk LgFo0BVCoUP6ycZ0MFDWBy FMoIXZvQH0hDKY0VXB6YYX xYGePHY0oqiNMgVJBbfmDu sPOuKJNvCYOLHD7DTOEOKm YLQ7TKGdDAXNLNXWcRRPCH XR5YP4g2KFDuhxGiOFAkUM MEBOwWYIDlWcYTB86OOzGQ NO1CADGZMiQMYYEvEJGNUu 5HJCjuMXJbDM3dPV5WI1TK SVZFIEZPUiBISUdILUdSQU LOJMBFJ0NXUTDLBXSJRnZT FUxAN76BVwQBFYWmzd11AV M8MmWht3G5NXC8WRNrQEYs m4jfZMUmkFDcRnXkVxDqVq ThKqqceRLqGZByHxVpp4rx y092vVNcr5yuCMIxFnZ1yS QlETJzgQGoC165YRTgWDnv r2pkt0SkGXLqyFRhu4A9JR CXdziblMc9bXxpY18nn2J8 CsktR3znADIoKTLbT0ZsIA 6tBGGbYew9DUR9IKV4LSXl AGXqV8QmCW5zEOJfuNZmDC s7r9ngnWolQDTqOGB7s1ch MGavngTwNT1cie9dlXt9k5 xjczEgRGVmYXVsdCBQYXJh E2KipWgrAs4rjKp7vSjxLp qkMZC6Rge9AP6zvo46rso4 iKisRNRqezrjNwF7ZYskVK JooytwEJg4JSpfPICaaIS1 ONFroYZsS2QnFMRuWG7hqo p3SZT5GWbqQREoIgO7DNPq vUUwBMOxuPylYPtrp332WI A3KdEmJA5vQ9Bdh4P8jF0o aXRcZGVmdGFiNzIwXGZvcm 2kkWBiVUlqo1OtSWU5doP6 iUOvmJWcXTPjZmP8QHcxAR 9goh12DKDmWUN8kt2mwGDp nJmtngRqvVLtWXokB9CxRA Lae524EQNwW7ErPZAhl7W0 usSdIxJiJKFqhKK9phF8OY NjNM6jbueas2crRBjcGIhn BKAytkY4hwV3TJYgtLWlI2 BowD2gBLKwEG1nzrepj4yl NUR1NCjxGKPqFVE4YnVjCB Yyo8Nhkgm7QzXzr2UvbWQj DErnM45zo688OPPevfJkR1 xwbGFpblxwbGFpblxmMFxm bwX7XLQmFCepgggaVZZzKF hnN5ylNyKkJCVcpNpfIJgf k3SsUJLcJKBqMlUuxXKgIR BcSzc4OJTnjASuBMIvXoSc R6nxynvmPvMPGDWoq0asQ4 ouoNJDsNPtJ3GlQThgqtKz MQklASwrKSWnVVJ3GY2kFJ UzITAsws45 CPT Code(s) (test code e5sqpFNnTMIksFH6HdWpED = 3357) Ray7jrj1VwjWCmxKSoZDdf iHLnjpIaxr06nQM1uI85WK 5hZWYgCiR2QGQiuhG1Fkc3 UHPrWYAnqQUyK588c7ohr6 mjbeNixTE4cMjsROZxwlgn HfY9AEmeAGKvzcxmPDh5GR brAZWxgBK4ECBfkPFaH2Rc CYZcQK7tkiq6PED7PNzkEK CjNwK3DKVccZImIWMzhUzc FJlzv252BZC5LlWqIUXuiv LpyDlzgW0bRaBgMOY0YWEu EJj9KPJtqn1= CLINICAL HISTORY (test l8rdrRBgYLJzxBQ2ZdOpJX code = 3356) Cpr3san4LktWWpdIXeTUxj uGAhgvQory03eUD4nB18XV 5bXFRcNxG6KXSixyE3Nib4 ULByJIJywMXxL252f6owo1 efbgCxlJA8LKRaQEZaV7Sr GG4wZLBiyXDtF13ivKQlRL E9ESUtBBMurRQdJXQbZGY3 DUIhaYYnT3wqXQOwBI1xwx kbPHjbVAflBCFgqXM6UYNo yZZkI7RbLXCrFXroLEHved x5VsTeUl0hhDIucPqmALma YXJkXHJpMVxwbGFpblxmcz PiBODaBSEZlq7oIELbOrhi iIEhL3myIQ8dqSxhWRS7za MwBKBlUjwtOKPqsv9pPNGk SeiimNNjQ4yfEQ8tzQprYJ Z4dLFaXSDfco0= GROSS DESCRIPTION (test s7uetTAnJWXvfQHLBQQgHu code = [id number]) fbuuPuRYJdkLUlR5Eqhjcf LCxuJY5fDM6ehDwwuQVylE TjIQ3DQQSmXwXdJWKyhSTs qqIzMuVmZUYceKLewPQ6YZ TuHU5ypfvsVXyhSXezSFRk ajL8ZGRxvNLrH4SfPDIqXE 0ibzvlLBZ7HEvgwP5jxrAL AvrbOu5adDGnkRffSqObDn NoYXJzZXQwXGZuaWwgQXJp QVj3yS3DZwrnG07cp8F9Uk j5RSJwMNPpU0OqDB1gEXMd tSMyY35EXprcJYE0PLPYXn xzXGCmXH4Jx6udCROqnWDg CFZ0FAhniTTuURZuIIYmIA p5CDDkXIasmYFtHA5saFos BzsusBahb6EljLGtDQdeOB NjPXUqYVjjUCHlEJ7TKaCk JWfEWgfaOCdkHlQ8UMe9YQ TMUxDwNcHbIktiOFV4YDty CMq9PPl2JDeMWeS3LMO9ON GaICerFDOhZmqnDBz7GLUg XFxmIEFyaWFsIFxcZmwgXF dcC31ydRrrsQ2lKZ3uZD4y yQFiBLVnpC7lKI9nN0WlwJ 0uXHBhciANClxlcGljTmVz dERvYzEgDQpcbHRycGFyXG xpbjBccmluMCANClxsdHJj aFxjZjFcZnMyMCBSZWNlaX UlVKHecwQgm9GzFQjjxyHm YWJlbGVkIHdpdGggdGhlIH YhzNrnkqFzD1J7rzBwFC2y ODYqLUCcK6ZkNHVpR45wOS XtkG9rMKNeTK6wVKy5NPNn YWGuRovqhM1szDHzFXVowT 8lKJEnF8ViInAwn47aaFT0 coVxNoQeCYIymt9dpD0xMI Csqr5oXWCed3A6EYDpm7E2 GZRmUA41KRkdLY9jPZvqTO 4xIGNtLCAwLjYgeCAwLjMg yCQvJrUiC07xEqIjUBnzSX UrLTJikXVmPUmjIFY4Lm8i hSAbSIEntdF2c3ZfIUiiPP NjKwulYVJwKKueyFOpZY5L ILDrTWrkupVpFI9XTZZmZI rcQDKlkSEYSKF7YM2aKXij jLDqvlvoGONtJ7LxL1Thmp PowYOvASWshyMdv9lzBWO6 XHNsbXVsdDBcZnMxNlxwYX F0DIm5DZhrWDShY0HzK5Lw OOsdERX3KIXdCsZzFOIsRH UUTaXqWhGaExY8Pxa1FlYx QFb1XJjuX0ARKRRpANJ8FZ S1CXS6RdS1TJm1PJXFYa2r LFCaGJC4WeO1RUJ6IhQ8AS xcdCAyIFxcZiBBcmlhbCBc OJJoHHzrexF6RAIzBMEwnH rypZ8dEt9oCU4euXCnHXBn iB6wAO1kCukwoPTdCEXqQQ 5whY3tAdjvIJElJPrvVLXf C64kn9BUa2BiDM5VMKd6kp ZfzjxtkT6zUWKkxiDwUCmz eRSlS6qjY5OfEIOiYpRaMa LxOMy1LHKlrK6nPg2wrRQq mU3lhFIbLYveAPO7aBLyEB DuZTJrVHMvOR27VZhPTIQg bmFtZSwgbWVkaWNhbCByZW NvcmQgbnVtYmVyIGFuZCBc mQrnHvJcKOw2V2WjrBuwFC Ytn3mtvo8fcKiloJNtg2Fs mqWymnbwRWFoLAMfd01oaN B9quSsPhPbsQn0kKZjROR9 HX6okFyrzrhufPJlOQs3eY RtOFLfSbVolVkdo3BdARhp LjQgeCAyLjEgeCAwLjQgY2 6sqR3aNYvbxdSmWAMrPW1n YUZwJCQvpCSbdQ0ulyJlcj NifYRjcVA7KEBclV9ttN40 rhJmcyQQPQ6lgPPiPK8GRJ BhciANClxjZjBcZnMyMiAN ClxwbGFpblxlcGljTmVzdE HrNbMceMtifO07YROkbHBj ZAJ2XF4dDTWgapkyJIXiTB CtSZD2BYoqeM18rQEuSMLt IMNrjSEdiD6Pq4wkXRMugI GmRZS6TNnknCIiZTRoFIPi WKyyMeLsQ7BFJHJwZaWsGK L1FWIfVRy2YNa4HY9PUgLx PQKkEYQrXbE0SZSfRPl0HL gqFX8RUEG8Xxh7YCC3BBU6 NTMyOCBcXHQgMiBcXGYgQX MzPRkfXTrobTXmWC7loTzg sjF3TDCwAQfrDRXoLNPppK zbGVJNo5wzasDaTLWlO7s5 X6KmL5DwOIniUu5rrOSdMP 3DRLWasBFHVAT9QL3eYUPP ClxsdHJwYXJcbGluMFxyaW 9tMQ9SHQo4yaHvJQPmKQpi ljMuFHYrT6OhceYjWCzgWV Gjxl7sdNwqGFwzMnHsVVAf n7y7kLZ8iNFgaWQ8zCCelI lnQaVvKK4vvRGmMX0cBNhc AZiyxdMep0ZjIB24qSDstd AtozCqQYR6QoDaMDsrTVVm i1c6mUewV95bm45xjfycgX WyESRxMQ1ocA9aJmIughMt W22em5duxLZea6UedGZinX lwbGUgdGFuLXBpbmssIHBl AUFxP2RjDHSlOGFkx9E0HC Orp8A1GXQeIx26VIqaTm5g TJbjAY47YXIyXEsoWKKwO8 PkF8J4LHpaMYTZdVEpv8Ov C1mxHP6ojFOdj2QpaEr7pP WuPBrfSQSmnH4olL0kDyEi XHBhciANClxwYXIgDQpcY2 UsUOCfDfDjWScdbWedpW0h GTAtQ97ja5UUz0EvFJUdGY hjt9twxBbud2UqaQYuFUyh AXClgGPyUHkfhM3gSsQsj2 avjXq7KFbxxnM2JEUnqo3N NqstFdvfcBihi8LqsHAvDY nhSPOqYOVxHDgvWJKiTC8G ZrMcNHgVGyxmCJwpZgS2ON k4VAQPSyNqDaNzQytvHXI9 QkNgSKd3TMp0DRtMRdF3PI W2VTRcOsMfRFGzBfcaMBq9 IDIgXFxmIEFyaWFsIFxcZm ivQHmqL95nTuQbAxqwaVDt jhDPDiZAd5w8tMnfV39qh0 1vEEQUxdTvg7UyspHgZugc WVVjYHatXCUhI80er5LKd9 CoDY3AAAm5zrCzuuzkiU1y HGAewoGbGJhdzAHqL4qcW7 OkCAQhSqFcKrPxUWv5SHPv cK8jKh7uuKFxrR0kcFCjBH ifTUP7uXEdPVKaTUXlNPJm AV68DEaNMWFuejTpGTnncT VkaWNhbCByZWNvcmQgbnVt YmVyIGFuZCBcdTgyMjAgXC y5H7TvaVqpFZMdl8jyfd80 rcPur0MehxIbVUPthPXpVD 4iQhmtmM99DTGgGLHuARCg iKdcKMovSqJxrrTxU51ci1 ixzQYjf7OuxRLssGosvDIy dGFuLXBpbmssIHBlZHVuY3 VnYWQoYPKup7V9VDLtv5B4 IHGlMd2bLEjgGd4zXWvrKP 10ZPXqFFxpXDHvK3HyB1Q3 UDkuPHIFvVXjr5VnT4ioPW 6yxBNks5QucAm7vJCoEDgg GKBuyP8ctC2uAFIfCODlDK YeeuNCFwceCNZmEOiDq4Oq jXzvOXYkD2k4t22wK4tdfN VhLTIUQJI6oQMoavZeyVHs YP8RBFNxlnOLMmjhLdRlCa MyMiANClxwbGFpblxlcGlj DfIsvDNcAwOtvBvfwO21UT JyeFPaICJ9AB3sUKIqaclk AWJdQOUtKPM1ROnneB75pU OwLWCxBVRivTWggC9RUKKj MWY4JErwvH23zRCgBM9IGG AtUCW0PSAguCKiKKZ0FD7a fQ0KfQ== MICROSCOPIC DESCRIPTION m9zupJCtTFZxdUA9MhMoOJ (test code = 3371) Ndl6hax4SpkCRhpEAnTPke qXPzawRgkn53cMV5cU05ZR 3dTUZpXuJ6OZGmfgT3Ocw1 LMRrUWBhkNApY402e1sbb8 oukoBfyAB8eTpaSEOpovcj PyH5TRbdRCEqtbesIIz2EY riCJQflON3YZWncUJiK7Qz LGShIY4iouu3ZGA3VPfbUH BbWdE2CFXjcIWmAVWdzJsw NQjbu741ATC4CqLlCPHeko PcjIkyzX5jMgJwXEVGPTCj m7UsSOPtGSCvlbijTJDeRD Bhcn0= [facility] [id number] 09:50:09 Test Item Value Reference Range Interpretation Comments Case Report (test code Surgical Pathology = 104) Report Case: [id number] Authorizing Provider: Angela Loco Collected: 07/03/2021 03:04 PM MD Brian Ordering Location: [address] Received: 07/06/2021 09:08 AM Service Pathologist: [...] clip x 1 DIAGNOSIS (test code = [id number] 3220) FuZzEwMzNcZnRuYmpcdWMx IHtccnRmMVxlcGljOTYwMV shtiAfCTBmcBXeB3Eytzzt CXwnOG8iQM2ugFmpjMKwjH DvMURnUiAse8rnu057zPVg h8raAHCAjrqfmVn0jKmqO5 8xn7Q2JrroA48loQAsBHV4 ZKFvSFLqnHBbSYKqBCK7OK MagGWkO0ijREJyMR8eqtvg QQjpCObyVOLfeVR5LCMzdW ZoT1ZaDIQiBOrkUQEsgih1 ByZzBp1hlQWwoFbjETerOY NtBBSvQIfzBPWiLzQqAU7g I13SL80bRAJAL9AISKZYLH xZJECLOA7OK1e2YGHowaBe LSAgVFVCVUxBUiBBREVOT0 7MVSElnoyaSYSuBz2wE24R Q88kLWVVT4mNE6IPN7BPUK qYXiEFI4gETOgjEhiWRXUE QnthUEOqYJ2qJG9QFHVXGB cJFEVOPNgUHU0GJjJTNbNO YTECYQNHDMHAOJ9LHLOhqV FyICAtICBORUdBVElWRSBG X8GoIGnLGP7EByURWQCWAH GHZJWXLCMyQ1IcSYYODIcH WH1SJYjkEAWgqQYhSCPtYE JZFY9EBUVVIVrREO0NF8NE DdAHCtwaCQ6COTMwOGWQJ5 BTWTpccGFyICAtICBNVUxU SVBMRSBGUkFHTUVOVFMgT0 UrUMFKBZmOIwVRDTPHL27G XHBhciAgLSAgTkVHQVRJVk YlWs4MIWaZN0wpF7XMRSLx OIwNAOsXL0bPLL0UXE3EAE gZGhOZM7thpXPwFNNsqdOc fBDtRSEaDBHXQU5LAWGTWb JVE0MDJmBWJFRYNTuGVEKD DE7ZY9r7WNPceaHcZYQgVU KDVSfJXTLeJuNVT87UFtVV HN2KRXPDWsBELWOeHFUEPe 8PYFloHHWpRJ2tXH9RJ0TE SVZFIEZPUiBISUdILUdSQU NWXWJNR8UGROVPGTGDCzTU QDfQT22PAkVGWQLbxy47HM Y2YfFdo3M5XUN0EUYiXUAp s5evQIHvrSYtTwHwScPvIf YiYlsttACcDMVbZuAlz3dg i093mNYhj4udVKSnWzR6oX VbVBKslIBxK039NNFwZXzx b8moh8YcHDTmnKBiw6K4ZL QZczvdgLj3eDmlQ91gt7L6 QidtP8rlRAGyDZBiM3OuML 9lQKSoGtu5UYN5WUR6OPBi NVOzQ2WmWK3fKZAcsBXpDL h7j4thbAquVHFlGKS0k7pk YKvswoIxFJ8wdl9kxVa4l7 xjczEgRGVmYXVsdCBQYXJh Q5RgbVunSa9hhSz3iGfpJc yzUKP1Yeo5AX5upu45dlm7 gNohEPXbezanHrT9XTktVM OnvbgsQPx6GAosXTJvxAY5 NBDsnZAlV9AaTAOoYD1yss f6WEX3JNcjEOPxTdO1SCAu wWIxXHNqaOcmLFgko705KI F5QbJvLP9wW6Ypu0Q3zH1h aXRcZGVmdGFiNzIwXGZvcm 2ekRAoECbvj8WmBSI4jaA3 oBQifYFxJSMhErJ1CMjsPR 2bsi49NGCoBYO3ho1nqSWq sKvvljBmxVEcDNmkB4XnCN Sgu696TNHwG9PfOGFra2H3 xkBsBrUnYVJclEB6yrG7TK MdUT7wbmiey2lxWChjSAqm TGQzfoI5hpO1DIWjrQNfF7 LtpF1gCXTcJQ6djtqow7il HLC6DZwiGNYhSPU2ZyLdQP Bts6Qdtbu5QdHya9FbjYWw FBbiC86nv888IGIgyaTxP1 xwbGFpblxwbGFpblxmMFxm zuH0UESgIOdarkasYMOdOA zyV4wiBnMdIHBpdMwmSVjf c4TpXZQpYKTvPzPlqCQnBH BiSfw0XZDrjSSvPIYjYiUx X3cvriydGmOUQRXlm4xmS2 qadXIPyPJxN6LpALijneAh VAtaXImaGYTkUCY5IC6dVX AmHJBteq46 CPT Code(s) (test code g6kvaUJzXWNquBI9OzWlKB = 4016) Hdp7idt4LxtJXhdRXtRBfn qHHqgpFupz65pIK3gU70YL 2rBUVfPkF7TMUkvhW9Fmr6 BUEbGNBfnRKuE415r8azg2 wikmRuaWD5kYdsSWZgxypi XwA6VAuoQRWtmeojRIg9OI aeQGXhtIJ7WRItiKCsO5Vu QETuOG8pxxr4WKF5YKqnCF SrMmA5JKIizFJaWOTmlXqq QOqxa904GHO0BgSbDINtzd ChsXspqQ5fEjPuOFJ4BJIj DEa3VSAdvf7= CLINICAL HISTORY (test c0pgaSAuSXGzvQQ2KfKsQP code = 3356) Vqy8pjc5PspQKjxWPsXFis yLBlltKxug75eOX6oF34QT 0rXYLbWbE1GDAysgV3Aiq1 YJDdDLIauGAoU332l2qob6 gbppAauON4DUHtUSCvB7Bo HP3dQMWjfHLuJ62jiPOzPS J2HGLtXJKbcXVeNONlXUQ3 HSIpvCHcH4rqLOQnFC2hyr vaYUugPBgcVJGlqVK5CNRn iILrG9LrZXBuAQodNQEuif d1VoDvWp2oqYKiaJgbXBkk YXJkXHJpMVxwbGFpblxmcz KlFVUdTQLSsz8mGSBfErre kLNaV8bfJT6niOnxGNZ0qk PkEMKnNgnhMXLddl8wQDCr HadshYXeV9waGZ2ouZojUT W6kDWpDBQzie5= GROSS DESCRIPTION (test u8qldTAdUOSdgAUEOMAqWz code = 4729705815) bwutGmYWCpuFDpQ3Xymvqb JYygDZ7pHM6llGbueYJjkH GaVT2EEFHlYpKtLSXrrISr bvSfPsRkWCJooSOohVB9VK CxLG7kxmbaMAnxQMcqQCVy lyX3KADbhKJgK9WsVAFfKH 9amjncQVK2ATrxpY2dixHX QhhqGq9qvMFvhCamCpHrTt NoYXJzZXQwXGZuaWwgQXJp NYx1tQ7REirjK95re7K5Ez k7GXQsPFRmU8RkIQ9hGEGd pZQzR25GTfyeUDW8ORDJXk efJVVtOV2Tf2kpFYQnfUNi EEG8CUeyzQBrOYTnIXImPY k8XTCmMOelmXEeFD5izDww XvrxcOfit6GfyRSnCEjkOM TtXJCnRGygWHSzXZ4CNcWe VOsJVgeoJNzvImG2VZj0PE GMGpDzRpBoXaryLLQ4ZJlu WDt7NLv2DOyEPiO0SJA4KP VtOTtlWQQpXsgrOEz7RWPn XFxmIEFyaWFsIFxcZmwgXF wcT22urYgywZ7hXR4uIS3q uPDgCZRezT0aXU5qA0SupW 0uXHBhciANClxlcGljTmVz dERvYzEgDQpcbHRycGFyXG xpbjBccmluMCANClxsdHJj aFxjZjFcZnMyMCBSZWNlaX LbIYKbeoWjq1OkDKdyxcCj YWJlbGVkIHdpdGggdGhlIH DjfCgeqeMaC5Z0oxKuEH6e OEAwUSFcV5JvPFAnJ38uJT UtbQ9dOPTnYG9xREx7ZGHo IZMgFzczkU7tcITzWXTogZ 4dZHUuS1PpZpJnt29ppGC7 mlQzHwHiONDjpq0paB0zDL Adbh8pKAKto3R1AFGjm2U4 EKPzID90ZPsqQD7gQOorLE 4xIGNtLCAwLjYgeCAwLjMg tPDqYvCfY74dRqMiZLmnCY KnHREeaERnZPjwZFB5Wu2t uLLhNCLkbsB7x9DsPDmsEP InFyrsIAPjJYbqlTYdYT4S GVFyOFuofqNaHI2UPLAgJY ieTWMcaGRZYYE0FX8lTNbc cUEccezsLGXtW4XmI2Mnvs NmaVEoBJWezrKkv0rxNOT9 XHNsbXVsdDBcZnMxNlxwYX V5RKz1YYdiTNPfT8PhX3Hm FGbpHNA4OTQrIdZkOFBqVB XNKrOfEfRaCyA2Mzd6GjHz PGx6IRobR5FGGWLwUFQ4XY G3GZB6RsP4OOp7LZCMHv3m LSErAZI6MuM6EAG6VcX2ZI xcdCAyIFxcZiBBcmlhbCBc ZGMxSZguteO0KKXhEPPihA kybN2hKc9jST1duLAoKABm uP6kMW6fEjotmNQwSNPwKG 9jnP7zBbpuUTZhAFapDXTg S12os5UVs6SuCM5ELXm2vq ImupplmR4uGJCwegZpBYug xREhS5euJ1OhHQDbAqPwQn JbPKs1FOTrhI3vBj3avUZq lO7rdYLrYGueGZQ1lJMcDS MiQDYjQEGhMK67GZuJHXVl bmFtZSwgbWVkaWNhbCByZW NvcmQgbnVtYmVyIGFuZCBc jMtiKgDfJGy0E8KntCkzLM Spf7tfnz7adLnlcYNuh0Tp vzJlfcvrSEJfUFJcd37vcM D5bvZxDgArnMd9uZZtQOR3 RT3lvYeiekapmYLcNYq6kM HdYOAhGoMfcOfdz3JhSMcy LjQgeCAyLjEgeCAwLjQgY2 4lvN4jVDhyflDaUCRiLS5s BYBhHPKybPZamH0akwYgnr MatRBbiGM4JMYorU1vhJ75 ljOslrZWDJ4yyGWoMY7OLJ BhciANClxjZjBcZnMyMiAN ClxwbGFpblxlcGljTmVzdE RtMsZyfXjwfO41JRRjwSGm XEQ7OI5fSECavusyCWZgRL OqXNS7VCidpA69dGYnTAAu TIDnaRMqsQ9Wx7neMLHfgR FxHEC1HPfphMUsANOuESHj NQtmMnMrY9AHFLJkCbMsRT K8IHHfCYy7LGh5ZA6KVuVn XNCgSBUpCfO2MDDjJCr5QQ npHP5DRJK7Djy4VIV2BDT1 NTMyOCBcXHQgMiBcXGYgQX MqFEieJBmhsDLpHB9rlBti diZ1KYFwOPpcBXBgLIPkuQ oyVRLJr4yglfHhAVJkE1n3 T4EiC3JlEJfyId0zuHOvPR 8YBFVxxPRFUZR0JD6hIIPA ClxsdHJwYXJcbGluMFxyaW 0wPZ8PIRu8ieVgTNRrFKkz syDtLDPhJ3RtgyFdDLyuNC Tptl0qvVjiGCdkIrHcDAVf i5f1yPI2hSHxqJI8kMHobF hvFlLvYD6btGMyBV7lVDxt QBxvkiCmf0YyGM19xHTtlj NoswChUSP4YiKlLPkcTQQu y9b4vQkyO03pu97eackbgA OrEWRvBA2qwU9zZqKnhhIs C72dh9yntSLiw4XdiLImuS lwbGUgdGFuLXBpbmssIHBl KEKyU4EyICCeQHFbt6G2HS Fuj0T6NKBjQy02OXalDf9p GRacJG97HYJtZIadOVDkB0 YtM0D6YZauTRILkUHsv3Bj E8aiNZ3xnXTli5JrgQv5rM DmDQklSNLldZ6xoE2zFcSs XHBhciANClxwYXIgDQpcY2 KgTGTmVaRaPQxjpNukaR2q ETHkJ96lv8VKd0GkNQAkOH psk3xpcVhys8DqfMZyMZbc EDQyjIWjWUtuuC8uFnJie6 ubjSt5LPnsggU9QJLols8F JqshOigfkAwus1AanZBiWG piNIOxYCLaEBzvJXAfFR8P WmThQMnBYsytMGpmAzZ6XB r9WLRXJiPfGfEwQzevXMS2 JiQmDBj6NJn8KFfOAdE6SW Q6MIXoXaAyVNMsJzzhCJu0 IDIgXFxmIEFyaWFsIFxcZm kePVyjV21iEeDrJpwtpCDz ruKQZiWTn9s9uKhlH23jk7 7kFSXHnlDfk8DwtiCvEvht RRPuMQdvNZZgM40pt6TIo4 DgQN1KXKt1oqMajmmrbO3l CDHwfeIqUMnimFJzF2ubA1 KgXBKwLdOjPnFwRRu9YDUp wR9uVh2gzSEhxV9shYOsFJ ygHEU9zJViNIAjVZBiNSCc OK31VDcGROVmiiZdHAjjsI VkaWNhbCByZWNvcmQgbnVt YmVyIGFuZCBcdTgyMjAgXC q7V0PnsWfyZFTzn5uhnq35 ctRcb5ZtsoNsSZZjySLmHP 9aZoeapZ97RGHyIYFoQCWz hXtdJMvlIiGkdmNiH23tu5 uieSNgu0BifUBmeFjmoGXk dGFuLXBpbmssIHBlZHVuY3 ImXOJhRPMaz6R1AJLsw2X6 ILCyJp2mVGdsOa6xRZmaHL 30KKVeDCiiYPFtG2FhH3P9 PNrbXEQVeCIlt3MdY2siPV 9gbGKag3DqgPi7kKAkWFft VTTnuM3peS1jCWYsGTOnPJ JtqoWHTtddWCZhRNlDq0Cm uDqkEAZvQ8c6j21wE3urgS OaJTGSRHA6xRVvlsUfpHBi VP7ODZFbzsZVVvqlMqXcKy MyMiANClxwbGFpblxlcGlj TqAzsZMoDeHoqFdkyO36AJ CjwZBnOXH4UM7iAMJjxdxj AHRvJPQuGMG2TArciI61pJ JkWHEtVQXqxFSbgB0HPXFm ZKC7VKsmdU68lKAyCO2DLS RvCBT1UAVafOIdCTC5DF6t fQ0KfQ== MICROSCOPIC DESCRIPTION o8aanWIqCEAtiRL1TdQzOU (test code = 3371) Wpr0jkm3NbwFIgzRRwZUyq lXMynvZcoi95vYG2hF08KZ 2xIWTiMaZ8YMLemnM0Ckr7 BQDvEDRkpSGaF926b2iaq4 jaqdKtrEE8xPugHFZwpcqg CoL9WJqvZKTtswgoSEn2BR ijPCOzjRI0HXIqzVMiZ4Ac KONxHK6agkg8YLH6SWrwZS YgCdU2GMDzzASvIZYieFac NZyyb101ALB1KoSeWGTrsc YoiNljuA1iCbFqTSSOCJLw l0IgBAOjXOGpotbtFWTkKB Bhcn0= [facility] [id number] 09:50:09 Test Item Value Reference Range Interpretation Comments Case Report (test code Surgical Pathology = 104) Report Case: [id number] Authorizing Provider: Angela Loco Collected: 07/03/2021 03:04 PM MD Brian Ordering Location: [address] Received: 07/06/2021 09:08 AM Service Pathologist: [...] clip x 1 DIAGNOSIS (test code = [id number] 3220) FuZzEwMzNcZnRuYmpcdWMx IHtccnRmMVxlcGljOTYwMV xbbcWtDUPbuUDeL7Pamzmf PRjcAZ5tNX2swVgydDNkxW UcOPThFyXqq7oan492aLQm i1obXNPHnnlymEq4rPsyY3 8hb8T8GrnvP01dcRDmHMM9 JQJuHFIatQIjLQNlFKE4IZ LmhXVdT2bbHQLoCL6fpnty CSabOMgiULImnPY2JNZbzZ EeY9BoKEOtYOllXXCriip0 JuQkGj7etBTbbJerNHxlMC JsXEJzGQgiSOEfCvOaRR6z C25FL36cXYAOQ8TRGCKPVQ iCPEFSNI2AT8u1QZZtpsPn LSAgVFVCVUxBUiBBREVOT0 1VYRYvvmsdWTQhIm0iE72V I00lJUTTI3mIS4PII7LOEQ hNPuWZH0iBHYvyCgtZTLNQ ZctuKQAhMU9wZX4TNFCAPK wXAWBZLIqYBD9LUeNNIuRO KSVQWSFUKWFMLN0ZEIZthM FyICAtICBORUdBVElWRSBG X8JiRMeEYT5AYoYULQJBKF WFWESHDULxC2XoKRLKYEqN QB5PFYzhROIpzVYzGDWuZA MMGU4URQHQMNcTXR7UM9UA IeNEUxfxOR5KDOLtHSIBQ7 BTWTpccGFyICAtICBNVUxU SVBMRSBGUkFHTUVOVFMgT0 ErNIWTZNuFRfITAZXKL09K XHBhciAgLSAgTkVHQVRJVk TkAh5DGIlWD7umF1SKUSOm FMgTJHlDK9bRQY9OZO8SUV vQOcILV2nciAOoZEJowwMg jVHmYTHwYVDXGB0HDKTMSc ZYI3FKFzESEEUFPBuAXWWA NG3EF9x8TWRyerUdNQCcIZ QSDJsBTVDkYzKAA92FOtAH GL2KIUELNaZYFBBsGUAUNc 6NIOovFLTyCR2iSY3OP9MU SVZFIEZPUiBISUdILUdSQU HCLILWA9DWGDTRBCGBKjSL IZnQM89TSrRRPQHvrt85IV B9DaPmp1L9YAZ0JNVeXUYp l1mdWAWyyTCmYfHwBhIhLx UrFpdwoPHsKKVaDzSwc8nr w102jAFzf4wiRGLzNlX8mI ZgWGZqnARgH855BIZkPChs t8nxr9EeCLXxpPMxm0S3IB ZEncltqUe2uMmkF04gn6T5 MlsaT8lrEEYyARTgP7MeJT 9mLNPwUlz5TMC0DYT3HBXw WNYrU1XnDQ6wLITeuSAiLP g5z8xgiJelZZXqIAS5s4zy XUefpwUnEK2may8vxNw5g2 xjczEgRGVmYXVsdCBQYXJh K9RtiUmfZi2tuLe2rQsyHa ihJIC3Wyo6VD3amj10wjb4 yXrmRVYryuibXaJ8KYixEB ZkhofiPEp4JCwhUZLcnZD3 PNCbgWPeD8UjTEAjQV5jqd r1UDC7MHliNXGwTrF4YKLm tKDdGTOrnGskRLhph206EH U9ZxDyZL1nT7Onh5H2wK6h aXRcZGVmdGFiNzIwXGZvcm 7gqKXeKNzxm0AzFSA7wsG6 iHVjuMTiXTWzMzQ4TUwmYJ 9kic43EKVbVEU5tg2fzKMy yLgkzgNysCQfUGeaB6YgBO Bse971KRDlS2XwZPJac4D7 oaEwGpBiEKHycKR2cdH9HB QqBQ0dspxyi5ihQQabDPny WFXzfiI3pdI4SCUkvZGuE1 VwyL9nWZTcVB4jbelma6pe UYB0WBlnBVCuCLU1GeFxPU Asj5Ebfpq7NbIgk8YevPQn HThtR69tz742VDBzhmPmY8 xwbGFpblxwbGFpblxmMFxm jnD9DMKoQQwhzvqcAKTcHH tpD3boMnDeGTDlbRsfPEoo b3CxOYPjSEEqRaHkwRZeVK DcZgw1OOZuvMVwUCNkMnMv Y5tcsrukRjCKYYDok7fuB4 mcoARFeUNtS3KdEFqcnuPn SQdnTEzcUKUwFMS7LS1eFA LjQVVdem75 CPT Code(s) (test code p9fzpFInBYXvjSI6QeItRP = 3357) Uqc9pyj8UyuXYajDYoOJeq yTQgazJsta75eUQ7oB02BM 7uKMEtQvO3THRfjjU3Kbf9 QYRmPKJwcTDoT753g9ugx2 zniiQdtDZ2sTufKHOeiwhz CkM1SKylBZLkfbgkYWq3XZ ghOUDcsMG3EMRtcABkF0Ir BILuEK4ynli5YYX2DEasEZ FmVcD6VJApuNBbMBVgvRtv WFcwj526TII2OwSwXWPdfe RqmKsvaR5wGtTiBFP2BSBh IZy5HCVkvk6= CLINICAL HISTORY (test u7kqsCFcWRPboJG0GjLpNI code = 3356) Fza0oid8OwiAZibBVzSBha iHRdosXitd34dQK3hG39MR 2rQLEgTtG4DCKlimJ9Yiz3 IWUqEWJljKOoK748m4ozn1 cuzxSjzDI1GGFzZFIxG5Fd HW9vJSCcrLIiW72gpRTuMM K7RDTwBPNdiUUdMGXgVDU8 DMDzsUZdG5epTSNyUZ8gzg hbVHqkBWeoYIEhiTK1KRKx dKYtP0XiTBAuGRbbOVLaxc h3XdNcIt1wzZMscRmvBVij YXJkXHJpMVxwbGFpblxmcz BaWVOvREVQoq3yAMGfQwxw jRUbN9iwHK3vkQjkCWC5pq NkMCDaYcdhSTDzbn4rBBWf QpbbbOIdQ6kqVL5lqJrjDJ K5tKRwDZQqzb1= GROSS DESCRIPTION (test j4qzeHYqTBPqhACTOTHhZf code = 3433789727) gwdtNqEKQyrWTgU1Absfez QFbtQY2yKU0vuWfryGLsoN OyIA7OCEXxTfYcBDStvLIl glIrEeFiFDMgcEOhfGH7UU SgPY8bnazeVEeqFZseGECc amW4XPQofLCuG0XxLBTsGI 1tohunGJC3ZDvcbM3lrzNB WivtRr0ajRQslVfiJqIuHx NoYXJzZXQwXGZuaWwgQXJp PPc5cW9CMrtoA16lq7R7Xc p2FZUqNCAsE7TmHC4oHLVt hNHxA06SZhvxUGP7FJFGXf fxBWYdVZ4Si5jfIBUfhKCh TYA9IXcbuOOtLFIqAUMzZF z7WRLhUIgwoFTxBQ8zjXcp ObrfhHidg5UcdKJeCBpoVV IyTNCuZTxzEDLvBO1GJdDr XFpURuoiCPdnQrH6NOh1CA OBXxNtHoFfGenbJRB8HFlf JRs1ZDs8NUwLZjQ3HTH3QZ LrXRzxAMCfHvixPKt9TWJp XFxmIEFyaWFsIFxcZmwgXF mrX31zyBwppX5wQA3nVU5l pTVxJVOsiZ3uJV1tJ4LwmR 0uXHBhciANClxlcGljTmVz dERvYzEgDQpcbHRycGFyXG xpbjBccmluMCANClxsdHJj aFxjZjFcZnMyMCBSZWNlaX RlSUBykxUkw4IlZNowgkEt YWJlbGVkIHdpdGggdGhlIH XnjYbpidNlP2K4ivSgQQ1m HKRkEOLpW4DfVDMxI25nQK ZwpS3fMGOpIN2eNVg1HHGf WYGmCmapaG2hkTBfLCKkmH 7hBOMbZ8JbUdHnz06pdPM4 npPdUdLiOCPcrq6sxX4yXB Djea1lJYFsp1C8NKNcs8Z1 PSCbTK29YTddND2wYIfvEO 4xIGNtLCAwLjYgeCAwLjMg oVTlAgRjE44pMdOnPGfzBQ RuXYIgrQWrQYcbYYX3Wl1i eXFfVQSiqkC8s3PzOIizTT XwEuclWWBeDShszIIeUH5K YGHyBBsgvzNdYG5LDCBnUR jaNOMncQKRMUL3QL5yNBxa qJKqcdanXJOeQ1DeS7Ygwu KbtNOuNVIgybFxo7qzCZF5 XHNsbXVsdDBcZnMxNlxwYX B1QRw7FBswJXDpK5WsU0Uu IFniDBQ5HOYdFnLtXAZuLA OSQeDzEeWcLlC8Wqa0VwDl FJo8JKxzT3KLCYCuNXV8YT G5KAI9DuW9XAy2RIPQGx6l XXLfQYA6DhR1ZUB8FyS0VI xcdCAyIFxcZiBBcmlhbCBc PTJdUUebfeT1UXPrGGOodN ioxR4vOa2aFC1hpJBzCMFp lP6iNZ1nIpmmiRMnFFQxMC 3prK9fApcbALXuYSrkHILk W14jz5YJa4EmIA7EDXf7os TrfpdblX6mHOVhzzFgJTss uRFuD1wlK2AeHAGoYdNqUx TbYMh7HTCxaY4rBr9uhAKh hL6tmIHeAZxpHKZ8uCCtXU DbCWYnNNRvHJ86TFmZDVUd bmFtZSwgbWVkaWNhbCByZW NvcmQgbnVtYmVyIGFuZCBc bTxqDoIrCIv0Q4GjiShaSL Ydn5lobp8vkVnfdOOdd4Ry usVyebmrTLWdSRGnz84zqB H3szSlBtOzkJb7yZIaZAL2 BY4peXohypoyyLOxAWe3cT KpMMIqPyWyzKtua7SsAVzg LjQgeCAyLjEgeCAwLjQgY2 7weZ6wJZsbhmTbMEDvAQ0h JKBkOJOpwZTflD8utdThfv EvdDQpdYM6TJDgeA3ufL69 dnQdjrCPYY2wuUVwSM9ZRC BhciANClxjZjBcZnMyMiAN ClxwbGFpblxlcGljTmVzdE QjPtOuhUlliR64GKDceHKw EHX3YK3oARTixdxhZALfDW PzMTY5WXnvwK19dJMwPXIh YRSohMKprP7Tq3jrXRRjeQ JrPIK2BIckpTHdUTAvPJXk CTpmEvPoG7AMTPPgZmXcBG C6AQQvSRf9DPg5MV2ZDqRg PILvCCNhDiI8LZAcRMh7BP ptQQ2VHEV9Ire0XNB6HRH6 NTMyOCBcXHQgMiBcXGYgQX WhZAvbGHagaWCnOU3imIgs izE7NZVaBYttXSZqLDQawC nvYTORl1cmldWySZUsB7c7 H2IoP2QdLPibYf1plYUgHC 1GXHVcsJFEXOK6DT5qMTBA ClxsdHJwYXJcbGluMFxyaW 8zZC2SIPd5jgIsLMFkKUnr fzRhSJMzW0DodbIzEPxjVL Ubmy8qpTfnBIolLtZiGLSr f6z4hYE8gPSotYI1mADjbT lzTmWiBO1qaBIuOA7nGGyy MWfhqtRbz3OrVI42lCBvvp VwaqLbFEP7MuZcCQliHHZw d6x2fKctZ50it02teghwmX EcFTUrWO6rnS2zCyJjwmCo E70ud0okrHUbp3QqmSXofM lwbGUgdGFuLXBpbmssIHBl ZEBsR3WtAHMdYMRgb0C0YQ Xhn8E2UTPpKt06DOeiKk5e BAuwNQ94MQGvJIskUIKcS1 PiH8G3EPngHEVVcTTen0Fq L0dhXF5dmWOfi1KueCe8jX YyPBixUKNffM7ktZ2oKoWz XHBhciANClxwYXIgDQpcY2 LgQFRlVxDqKTmdnJpxpC6z DSWnP24hw1IZz0EgVQFsQH pyn3dfwJvbn9QoyZRvYAtc RLUmmOHkULmdlY2mDeIct2 nevVq3PRqrlqM1MIQnre7B PfeoMxhepGegn9CrdSKrJC cvDTAxKSTmRHfyRXGjKK9C SoOmOEnSIpgqMLkkEfC5NW r1FRFUTeJeAkKrHmlcUDA0 GhZqOPa3VYr1IFlEBlO3SN H0XUClLkSiWHElVczoINz5 IDIgXFxmIEFyaWFsIFxcZm evHQhgQ08qYfTmSfwfsZSc xzEFIzLWp0d6wHosQ89jq9 3yIPFNmoOem8GbtpPmYhuf VQRpLUzdESGtD34uh0PQk9 VqBN8DYWo7nrLaypeayT8u VLFwqwGlBUyrhCKnY4qhL1 HwUMEiQtFgNbOcVGd5MGHj qY9xQb8enXMuhU3jiXAgIT dcLGA7fBTpLGUvSODlURQn XC72AHeZGIRoeaWqSGtqsZ VkaWNhbCByZWNvcmQgbnVt YmVyIGFuZCBcdTgyMjAgXC f9A4DxuMduPUVmi8rnga06 vwMko7GwojTsBHHsvWUkYN 2qNeflpV06TEObMKPaKCKu oEowDAfdQtTbuqBcF11ma9 zkjEQml5WrkGIguMylhJLg dGFuLXBpbmssIHBlZHVuY3 AkWKArMSWbm0T7JYVfr0O1 ZCJvLt1sRCnjBa9rBWodIY 81BRHqMPmkYRErV9TwL4T2 WDedZRRUkDNzu9CrH3ewAS 6hoZIhn5MxkMt8sGDbNEqr JSXxwT8qoJ7mIPEhBASfCP AnzcUADkvpTSKdPQlRh4Fd gTukEBBpE4k6i65bF2kspO VaDJTAOJS6uJAgmyIkfGXc LK6FGAHgadJFAdvnObVfVp MyMiANClxwbGFpblxlcGlj QxEwlRFmMvGjuDeedO64DE VrgXEuULG6IP2fHLEtxhgx JDDmWXAwEOL2PXchtP98wV NsKREkCOPkbRHsxU5GQPRi EOG9DQadrS46bVHxLA3BLO JvCDD9BBVoeKDhQHB3GP5b fQ0KfQ== MICROSCOPIC DESCRIPTION j7abdQYuKKWthDN5HmXlNV (test code = 3371) Sra4vuo5BhnMCwtLVeHFhf lLGkmrOwnu05pPR7cF42NK 1tXLPmEcA0UQZqsuB0Tod4 MXFaPVIiwUJwZ024m4dve8 mqdvNnvVS1nBnnQQHpxqfh YiF1YGlsOLIjuiwmTGq3DX isQAZwyCW1QZUdkCZtI2Tp ZNYsQI4edqc0DAE2LLbtHL LjPmV9RUPqaMXpJJRfdIfw XJehu292IFU6GiSdARZjgj JsiSvdsZ5mPgEdSBXXHVRj e1JhZKTjSTZqydqqPOKwRF Bhcn0= [facility] [id number] 09:50:09Surgical Pathology Report Case: [id number] Authorizing Provider: Angela Loco Collected: 07/03/2021 03:04 PM MD Brian Ordering Location: [address] Received: 07/06/2021 09:08AM Service Pathologist: Michelle [...] OR MALIGNANCY Signing Pathologist Direct Phone Line: [phone] signed by Michelle Fernández MD on 07/07/2021 at 9:50 [id number] deficiency anemia, unspecified iron deficiency anemia type [...] patient's name, medical record number and "polyp, [id number] taken by hot snare, clip x1" and consists of multiple robert- pink, pedunculated soft tissue (6.0 x 2.2 x 0.4 cm in aggregate). The specimen is submitted in toto in D1-D3.GRICELDA Andrew studentPerformed.POC- Glucose [id number] 08:45:23 Test Item Value Reference Range Interpretation Comments POC-Glucose Meter (test 92 mg/dL 70-110 : TE STED AT [facility] code = 1538) [address] [place] [address], [facility] 30: Child Attendant/Techni kelle ID = [id number] for EDMUNDO BARRAGAN Lab Interpretation (test Normal code = 98219-9) [facility] [id number] 08:45:23 Test Item Value Reference Range Interpretation Comments POC-Glucose Meter (test 92 mg/dL 70-110 : TE STED AT [facility] code = 1538) [address] [place] [address], 770 30: Child Attendant/Techni kelle ID = [id number] for ORPHEY, EDMUNDO Lab Interpretation (test Normal code = 91430-6) [facility] [id number] 08:45:23 Test Item Value Reference Range Interpretation Comments POC-Glucose Meter (test 92 mg/dL 70-110 : TE STED AT [facility] code = 1538) [address] [place] [address], 770 30: Child Attendant/Techni kelle ID = [id number] for ORPHEY, EDMUNDO Lab Interpretation (test Normal code = 49435-9) [facility]-Glucose [id number] 08:45:23 Test Item Value Reference Range Interpretation Comments POC-Glucose Meter (test 92 mg/dL 70-110 : TE STED AT [facility] code = 1538) [address] [place] [address], 770 30: Child Attendant/Techni kelle ID = [id number] for ORPHEY, EDMUNDO Lab Interpretation (test Normal code = 27386-0) [facility]-Glucose [id number] 08:45:23 Test Item Value Reference Range Interpretation Comments POC-Glucose Meter (test 92 mg/dL 70-110 : TE STED AT [facility] code = 1538) [address] [place] [address], 770 30: Child Attendant/Techni kelle ID = [id number] for ORPHEY, EDMUNDO Lab Interpretation (test Normal code = 16004-2) [facility]-Glucose [id number] 08:45:23 Test Item Value Reference Range Interpretation Comments POC-Glucose Meter (test 92 mg/dL 70-110 : TE STED AT [facility] code = 1538) [address] [place] [address], 770 30: Child Attendant/Techni kelle ID = [id number] for ORPHEY, EDMUNDO Lab Interpretation (test Normal code = 17617-2) [facility] [id number] 08:45:23 Test Item Value Reference Range Interpretation Comments POC-Glucose Meter (test 92 mg/dL 70-110 : TE STED AT [facility] code = 1538) [address] [place] [address], 770 30: Child Attendant/Techni kelle ID = [id number] for ORPHEY, EDMUNDO Lab Interpretation (test Normal code = 16135-5) [facility]-Glucose [id number] 08:45:23 Test Item Value Reference Range Interpretation Comments POC-Glucose Meter (test 92 mg/dL 70-110 : TE STED AT [facility] code = 1538) [address] [place] [address], 770 30: Child Attendant/Techni kelle ID = [id number] for ORPHEY, EDMUNDO Lab Interpretation (test Normal code = 50701-5) [facility]-Glucose [id number] 08:45:23 Test Item Value Reference Range Interpretation Comments POC-Glucose Meter (test 92 mg/dL 70-110 : TE STED AT [facility] code = 1538) [address] [place] [address], 770 30: Child Attendant/Techni kelle ID = [id number] for ORPHEY, EDMUNDO Lab Interpretation (test Normal code = 56629-3) [facility]-Glucose [id number] 08:45:23 Test Item Value Reference Range Interpretation Comments POC-Glucose Meter (test 92 mg/dL 70-110 : TE STED AT [facility] code = 1538) [address] [place] [address], 770 30: Child Attendant/Techni kelle ID = [id number] for ORPHEY, EDMUNDO Lab Interpretation (test Normal code = 77114-1) [facility]-Glucose [id number] 08:45:23 Test Item Value Reference Range Interpretation Comments POC-Glucose Meter (test 92 mg/dL 70-110 : TE STED AT [facility] code = 1538) [address] [place] [address], 770 30: Child Attendant/Techni kelle ID = [id number] for ORPHEY, EDMUNDO Lab Interpretation (test Normal code = 95197-9) [facility]-GLUCOSE [id number] 08:45:23 Test Item Value Reference Range Interpretation Comments POC-GLUCOSE METER 92 mg/dL 70-110 : TESTED A T [facility] 6720 (BEAKER) (test code = YUDY V[facility], 1538) [address]: Child Attendant/Techni kelle ID = [id number] for ORPH EY, EDMUNDO RAD, CHEST, 1 VIEW, NON [id number] 07:59:00Reason for exam:->post-opShould this be performed at the bedside?->Yes [facility] 1955 Sex: FFINAL [...] Bayron Cosme Verified Date/Time:07/04/2021 07:59:51 BASIC METABOLIC [id number] 06:24:45 Test Item Value Reference Range Interpretation [...] S NOT APPLICABLE FOR DIALYSIS PATIEN TS. Child Attendant ID - [id number] 06:15:51 Test Item Value Reference Range Interpretation Comments MAGNESIUM (BEAKER) (test code = 1.9 mg/dL 1.6-2.6 627) Child Attendant ID - [id number] 06:15:51 Test Item Value Reference Range Interpretation Comments PHOSPHORUS (BEAKER) (test code = 3.1 mg/dL 2.3-4.7 604) Child Attendant ID - [id number] (HEMOGRAM ONLY)2021-07-04 05:44:21 Test [...] Not Detected, (test code = Negative, See 47882-0) external report for linked test SARS-COV-2 [facility] ALICIA PERFORMING LAB (test code = 48559-5) BRANDI (test code = Negative result for [...] of the Act. Fact Sheet for Healthcare Providers:https://www.[employer].Privepass/sites/default/f radha/product/documents/F act_Sheet_HC_Providers_L nab_YJQX-IbW-1.pdf Fact Sheet for Healthcare Patients:https://www.[employer] del.[employer]rivepass/sites/default/fi les/product/documents/Fa ct_Sheet_Patients_Lyra_S ARS-CoV-2.pdf Performing Laboratory:[facility] [place] [address] [facility] (Asymptomatic ONLY)2021-07-04 00:21:04 Test Item Value Reference Range Interpretation Comments SARS-COV2/RT-PCR Negative Not Detected, (test code = Negative, See 69462-3) external report for linked test SARS-COV-2 [facility] ALICIA PERFORMING LAB (test code = 45914-2) BRANDI (test code = Negative result for [...] of the Act. Fact Sheet for Healthcare Providers:https://www.LMN-1.com/sites/default/f radha/product/documents/F act_Sheet_HC_Providers_L qtg_WDRJ-RlV-4.pdf Fact Sheet for Healthcare Patients:https://www.S.[employer]. Safe[employer]Software.com/sites/default/fi les/product/documents/Fa ct_Sheet_Patients_Alicia_S ARS-CoV-2.pdf Performing Laboratory:[facility] [place] [address] [facility]omatic ONLY[facility]2021-07-04 00:21:04 Test Item Value Reference Range Interpretation Comments SARS-COV2/RT-PCR Negative Not Detected, (test code = Negative, See 09436-4) external report for linked test SARS-COV-2 [facility] PERFORMING LAB (test code = 79918-1) BRANDI (test code = Negative result for [...] of the Act. Fact Sheet for Healthcare Providers:https://www.Aruspex/sites/default/f radha/product/documents/F act_Sheet_HC_Providers_L rnu_MNJI-OoT-1.pdf Fact Sheet for Healthcare Patients:https://www.BandPage/sites/default/fi les/product/documents/Fa ct_Sheet_Patients_Lyra_S ARS-CoV-2.pdf Performing Laboratory:[facility] [place] [address] [facility] (Asymptomatic ONLY)2021-07-04 00:21:04 Test Item Value Reference Range Interpretation Comments SARS-COV2/RT-PCR Negative Not Detected, (test code = Negative, See 27391-8) external report for linked test SARS-COV-2 [facility] PERFORMING LAB (test code = 58349-7) BRANDI (test code = Negative result for [...] of the Act. Fact Sheet for Healthcare Providers:https://www.Aruspex/sites/default/f radha/product/documents/F act_Sheet_HC_Providers_L abi_CIWO-NpS-8.pdf Fact Sheet for Healthcare Patients:https://www.BandPage/sites/default/fi les/product/documents/Fa ct_Sheet_Patients_Lyra_S ARS-CoV-2.pdf Performing Laboratory:[facility]-CoV2/RT-PCR (Asymptomatic ONLY)2021-07-04 00:21:04 Test Item Value Reference Range Interpretation Comments SARS-COV2/RT-PCR Negative Not Detected, (test code = Negative, See 66769-8) external report for linked test SARS-COV-2 [facility] PERFORMING LAB (test code = 20320-9) BRANDI (test code = Negative result for [...] of the Act. Fact Sheet for Healthcare Providers:https://www.Ar[employer]pex/sites/default/f radha/product/documents/F act_Sheet_HC_Providers_L hrc_IMNF-HgS-3.pdf Fact Sheet for Healthcare Patients:https://www.BandPage/sites/default/fi les/product/documents/Fa ct_Sheet_Patients_Lyra_S ARS-CoV-2.pdf Performing Laboratory:[facility] [place] [address] [facility] (Asymptomatic ONLY)2021-07-04 00:21:04 Test Item Value Reference Range Interpretation Comments SARS-COV2/RT-PCR Negative Not Detected, (test code = Negative, See 96926-1) external report for linked test SARS-COV-2 [facility] PERFORMING LAB (test code = 54988-9) BRANDI (test code = Negative result for [...] of the Act. Fact Sheet for Healthcare Providers:https://www.Aruspex/sites/default/f radha/product/documents/F act_Sheet_HC_Providers_L jrr_KVTM-PvS-8.pdf Fact Sheet for Healthcare Patients:https://www.BandPage/sites/default/fi les/product/documents/Fa ct_Sheet_Patients_Lyra_S ARS-CoV-2.pdf Performing Laboratory:[facility] [facility] [address], [place] [address] [place], [place] [address]ARS-CoV2/RT-PCR (Asymptomatic ONLY)2021-07-04 00:21:04 Test Item Value Reference Range Interpretation Comments SARS-COV2/RT-PCR Negative Not Detected, (test code = Negative, See 25095-3) external report for linked test SARS-COV-2 [facility] PERFORMING LAB (test code = 28455-2) BRANDI (test code = Negative result for [...] of the Act. Fact Sheet for Healthcare Providers:https://www.Aruspex/sites/default/f radha/product/documents/F act_Sheet_HC_Providers_L naj_MXCM-StZ-6.pdf Fact Sheet for Healthcare Patients:https://www.BandPage/sites/default/fi les/product/documents/Fa ct_Sheet_Patients_Lyra_S ARS-CoV-2.pdf Performing Laboratory:[facility]-CoV2/RT-PCR (Asymptomatic ONLY)2021-07-04 00:21:04 Test Item Value Reference Range Interpretation Comments SARS-COV2/RT-PCR Negative Not Detected, (test code = Negative, See 13572-0) external report for linked test SARS-COV-2 [facility] PERFORMING LAB (test code = 99087-8) BRANDI (test code = Negative result for [...] of the Act. Fact Sheet for Healthcare Providers:https://www.Aruspex/sites/default/f radha/product/documents/F act_Sheet_HC_Providers_L msv_PBFT-ZsR-2.pdf Fact Sheet for Healthcare Patients:https://www.BandPage/sites/default/fi les/product/documents/Fa ct_Sheet_Patients_Lyra_S ARS-CoV-2.pdf Performing Laboratory:[facility] [place] [address] [facility] (Asymptomatic ONLY)2021-07-04 00:21:04 Test Item Value Reference Range Interpretation Comments SARS-COV2/RT-PCR Negative Not Detected, (test code = Negative, See 09044-0) external report for linked test SARS-COV-2 [facility] PERFORMING LAB (test code = 31837-9) BRANDI (test code = Negative result for [...] of the Act. Fact Sheet for Healthcare Providers:https://www.Aruspex/sites/default/f radha/product/documents/F act_Sheet_HC_Providers_L ayq_MJGR-NfQ-5.pdf Fact Sheet for Healthcare Patients:https://www.BandPage/sites/default/fi les/product/documents/Fa ct_Sheet_Patients_Lyra_S ARS-CoV-2.pdf Performing Laboratory:[facility] [place] [address] [facility] (Asymptomatic ONLY)2021-07-04 00:21:04 Test Item Value Reference Range Interpretation Comments SARS-COV2/RT-PCR Negative Not Detected, (test code = Negative, See 39554-6) external report for linked test SARS-COV-2 [facility] PERFORMING LAB (test code = 24705-7) BRANDI (test code = Negative result for [...] of the Act. Fact Sheet for Healthcare Providers:https://www.Aruspex/sites/default/f radha/product/documents/F act_Sheet_HC_Providers_L nmd_YSKX-WwX-0.pdf Fact Sheet for Healthcare Patients:https://www.BandPage/sites/default/fi les/product/documents/Fa ct_Sheet_Patients_Lyra_S ARS-CoV-2.pdf Performing Laboratory:[facility] [place] [address] [facility] (Asymptomatic ONLY)2021-07-04 00:21:04 Test Item Value Reference Range Interpretation Comments SARS-COV2/RT-PCR Negative Not Detected, (test code = Negative, See 58640-1) external report for linked test SARS-COV-2 [facility] PERFORMING LAB (test code = 36349-9) BRANDI (test code = Negative result for [...] of the Act. Fact Sheet for Healthcare Providers:https://www.[employer] idel.Privepass/sites/default/f radha/product/documents/F act_Sheet_HC_Providers_L num_OMNU-EkL-1.pdf Fact Sheet for Healthcare Patients:https://www.ankur del.com/sites/default/fi les/product/documents/Fa ct_Sheet_Patients_Lyra_S ARS-CoV-2.pdf Performing Laboratory:[facility] [place] [address] [facility] ([facility])2021-07-04 00:21:04 Test Item Value Reference Range Interpretation Comments SARS-COV2/RT-PCR (test Negative Not Detected, Negative, code = 5153821) See external report for linked test SARS-COV-2 PERFORMING LAB [facility] (test code = 4743325) Negative result for this test determines that [...] of the Act.Fact Sheet for Healthcare Prov iders:https://www.[employer] Consumer.com/sites/default/files/product/documents/Fact_Sheet_HC _Bgxwcbhwl_Ermf_QTQT-FqU-7.pdfFact Sheet for Healthcare Patients:https://www.[employer].Privepass/sites/default/files/product/docume nts/Ofeh_Wnost_Jxfwweot_Ejan_OQPE-ZgC-8.pdfPerforming Laboratory:[place] [address], [place] [address]GBLF-UYWAMAX METER 2021-07-03 21:29:18 Test Item Value Reference Range Interpretation Comments POC-GLUCOSE METER 169 mg/dL 70-110 H : TESTED A T [facility] 6720 (BEAKER) (test code = [facility], 1538) 755[address]: Child Attendant/Techni kelle ID = [id number] for Co rtez, Keyla POCT-GLUCOSE [id number] 17:51:28 Test Item Value Reference Range Interpretation Comments POC-GLUCOSE METER 110 mg/dL 70-110 : TESTED A T [facility] 6720 (BEAKER) (test code = [facility], 1538) 08708: Child Attendant/Techni kelle ID = [id number] for EDMUNDO JACKSON POCT-GLUCOSE [id number] 16:18:01 Test Item Value Reference Range Interpretation Comments POC-GLUCOSE METER 78 mg/dL 70-110 : [facility] (test code = [facility], 153) 83260: Child Attendant/Techni kelle ID = [id number] for Naren palacio, Sarwat POC-Glucose [id number] 13:43:00 Test Item Value Reference Range Interpretation Comments POC-Glucose Meter (test 82 mg/dL 70-110 : TE STED AT [facility] code = 1538) [address] [place] [address], 770 30: Child Attendant/Techni kelle ID = [id number] for RENETTA STEARNS Lab Interpretation (test Normal code = 94096-9) [facility] [id number] 13:43:00 Test Item Value Reference Range Interpretation Comments POC-GLUCOSE METER 82 mg/dL 70-110 : TESTED A T [facility] [address]20 (BEAKER) (test code = [facility], 1538) 32142: Child Attendant/Techni kelle ID = [id number] for RENETTA STEARNS POCT-GLUCOSE [id number] 08:55:17 Test Item Value Reference Range Interpretation Comments POC-GLUCOSE METER 85 mg/dL 70-110 : TESTED A T [facility] [address]20 (BEAKER) (test code = [facility], 153) 94203: Child Attendant/Techni kelle ID = [id number] for EDMUNDO DÍAZ RAD, CHEST, 1 VIEW, NON [id number] 07:19:00Reason for exam:->post-opShould this be performed at the bedside?->Yes [facility] 1955 Sex: FFINAL [...] Conteh Verified Date/Time: 07/03/2021 07:19:27 Reading Location: [facility] Radiology Reading Room BASIC METABOLIC [id number] 04:12:43 Test Item Value Reference Range Interpretation [...] S NOT APPLICABLE FOR DIALYSIS PATIEN TS. Child Attendant ID - RAKAN [id number] 03:43:29 Test Item Value Reference Range Interpretation Comments MAGNESIUM (BEAKER) (test code = 2.1 mg/dL 1.6-2.6 627) Child Attendant ID Bassam BLEDSOE [id number] 03:43:29 Test Item Value Reference Range Interpretation Comments PHOSPHORUS (BEAKER) (test code = 3.4 mg/dL 2.3-4.7 604) Child Attendant ID Bassam BLEDSOE [facility] (HEMOGRAM ONLY)2021-07-03 03:25:24 [...] 150-450 L = 756) MEAN PLATELET VOLUME (AKER) 10.3 fL 9.4-12.3 (test code = 754) NUCLEATED RED BLOOD CELLS (BEAKER) 0 /100 WBC 0-0 (test code = 413) POC-Glucose [id number] 21:37:50 Test Item Value Reference Range Interpretation Comments POC-Glucose Meter (test 97 mg/dL 70-110 : TE STED AT [facility] code = 1538) 20 [facility], 770 30: Child Attendant/Techni kelle ID = [id number] for W[place], MACKENZIE Lab Interpretation (test Normal code = 28046-9) [facility] [id number] 21:37:50 Test Item Value Reference Range Interpretation Comments POC-GLUCOSE METER 97 mg/dL 70-110 : TESTED A T [facility] 6720 (BEAKER) (test code = [facility], 1538) 83798: Child Attendant/Techni kelle ID = [id number] for NATALIA RO, MACKENZIE POCT-GLUCOSE [id number] 18:00:54 Test Item Value Reference Range Interpretation Comments POC-GLUCOSE METER 166 mg/dL 70-110 H : TESTED A T [facility] 6720 (BEAKER) (test code = [facility], 1538) 28712: Child Attendant/Techni kelle ID = [id number] for Ba rrera, Kayla POCT-GLUCOSE [id number] 13:01:12 Test Item Value Reference Range Interpretation Comments POC-GLUCOSE METER 169 mg/dL 70-110 H : TESTED A T [facility] 6720 (BEAKER) (test code = [facility], 1538) 31117: Child Attendant/Techni kelle ID = [id number] for Ba rrera, Kayla POC-Glucose [id number] 08:45:07 Test Item Value Reference Range Interpretation Comments POC-Glucose Meter (test 134 mg/dL 70-110 H : TE STED AT [facility] code = 1538) 20 [facility], 770 30: Child Attendant/Techni kelle ID = [id number] for Freitas, Mariss a Lab Interpretation (test Abnormal code = 78736-9) [facility] [id number] 08:45:07 Test Item Value Reference Range Interpretation Comments POC-GLUCOSE METER 134 mg/dL 70-110 H : TESTED A T [facility] 6720 (AKASH) (test code = [place], 1538) [address]: Child Attendant/Techni kelle ID = [id number] for Kayla Emanuel RAD, CHEST, 1 VIEW, NON [id number] 08:36:00Reason for exam:->post-opShould this be performed at the bedside?->Yes [facility] 1955 Sex: FFINAL REPORT RAD, CHEST, 1 VIEW, NON DEPT INDICATION: post-op COMPARISON: Prior day's exam TECHNIQUE: Portable frontal view of the chest. FINDINGS: Support Lines and Devices: Stable.Lungs and pleura: Unchanged airspace and pleural opacities. No pneumothorax identified. Heart and med iastinum: Mild to moderate cardiomegaly is present. Stable surgical changes. Additional findings: None. IMPRESSION: 1.No significant change from prior exam.2.Cardiomegaly with central pulmonary vascular congestion.3.Blunting of the right costophrenic sulcus, which may represent pleural thickening/scarring or small pleural effusion. Signed: Boogie Conteh Verified Date/Time: 07/02/2021 08:36:36 Reading Location: [facility] Radiology Reading Room Basic Metabolic [id number] 07:06:58 Test Item Value Reference Range Interpretation Comments Sodium (test code = 137 meq/L 738-545 3248-2) Potassium (test code = 3.9 meq/L 3.5-5.1 2823-3) Chloride (test code = 101 meq/L 98-107 2075-0) CO2 (test code = 28 meq/L 22-29 2028-9) BUN (test code = 23 mg/dL 7-21 H 3094-0) Creatinine (test code 3.16 mg/dL 0.57-1.25 H = 2160-0) Glucose (test code = 150 mg/dL 70-105 H 2345-7) Calcium (test code = 8.1 mg/dL 8.4-10.2 L 18571-8) EGFR (test code = 15 mL/min/1.73 [place] [address]-7) NOT ACCURATE CREATININE CLEARANCE IN PREDICTING GLOMERULAR FILTRATION RATE . ESTIMATED GFR I S NOT APPLICABLE FOR DIALYSIS PATIENTS. BRANDI (test code = BRANDI) Child Attendant ID - PIAYA L Lab Interpretation Abnormal (test code = 54346-3) [facility] Center[facility]I [facility]OLIC [id number] 07:06:58 Test Item Value Reference Range Interpretation [...] S NOT APPLICABLE FOR DIALYSIS PATIEN TS. Child Attendant ID - PIAYA [id number] 07:06:52 Test Item Value Reference Range Interpretation Comments Magnesium (test code = 1.9 mg/dL 1.6-2.6 66735-6) BRANDI (test code = BRANDI) Child Attendant ID - LIANA L Lab Interpretation (test Normal code = 08901-3) [facility]2022-[facility]-31 07:06:52 Test Item Value Reference Range Interpretation Comments Phosphorus (test code = 2.6 mg/dL 2.3-4.7 2777-1) BRANDI (test code = BRANDI) Child Attendant ID - LIANA L Lab Interpretation (test Normal code = 29090-2) [facility]UM2022-03-31 07:06:52 Test Item Value Reference Range Interpretation Comments MAGNESIUM (BEAKER) (test code = 1.9 mg/dL 1.6-2.6 627) Child Attendant ID - LIANA [id number] 07:06:52 Test Item Value Reference Range Interpretation Comments PHOSPHORUS (BEAKER) (test code = 2.6 mg/dL 2.3-4.7 604) Child Attendant ID - LIANA LCBC (Hemogram only)2021-07-02 05:56:49 Test Item Value Reference Range Interpretation Comments WBC (test code = 6690-2) 4.6 See_Comment [A utomated message] The system bettermarks generated this result transmitted ref erence range: 3.5 - 10 .5 K/L. The refe rence range was not u sed to interpret this result as normal/abnor mal. RBC (test code = 789-8) 2.50 See_Comment L [Au tomated message] The system bettermarks generated this result transmitted ref erence range: 3.93 - 5 .22 M/L. The refe rence range was not u sed to interpret this result as normal/abnor mal. MCHC (test code = 786-4) 31.9 See_Comment L [A utomated message] The system bettermarks generated this result transmitted ref erence range: [...] L [Aut omated message] 777-3) The system bettermarks generated this result transmitted ref erence range: 150 - 45 0 K/CU MM. The referen ce range was not u sed to interpret this result as normal/abnor mal. MPV (test code = 11.3 fL 9.4-12.3 46500-1) nRBC (test code = 413) 0 See_Comment [Aut omated message] The system bettermarks generated this result transmitted ref erence range: 0 - 0 /1 00 WBC. The refere nce range was not u sed to interpret this result as normal/abnor mal. Lab Interpretation (test Abnormal code = 65546-6) [facility] (HEMOGRAM ONLY)2021-07-02 05:56:49 Test Item Value [...] WBC 0-0 (test code = 413) POCT-GLUCOSE [id number] 21:57:03 Test Item Value Reference Range Interpretation Comments POC-GLUCOSE METER 179 mg/dL 70-110 H : TESTED A T [facility] 6720 (BEAKER) (test code = [facility], 1538) 78685: Child Attendant/Techni kelle ID = [id number] for MACKENZIE GONZALEZ POCT-GLUCOSE [id number] 17:59:08 Test Item Value Reference Range Interpretation Comments POC-GLUCOSE METER 208 mg/dL 70-110 H : TESTED A T [facility] 6720 (BEAKER) (test code = [facility], 1538) 86745: Child Attendant/Techni kelle ID = [id number] for Loco Hicks POCT-GLUCOSE [id number] 13:37:14 Test Item Value Reference Range Interpretation Comments POC-GLUCOSE METER 118 mg/dL 70-110 H : TESTED A T [facility] 6720 (BEAKER) (test code = [facility], 1538) 88906: Child Attendant/Techni kelle ID = [id number] for Millie Toledo RAD, CHEST, 1 VIEW, NON [id number] 09:58:00Reason for exam:->post-opShould this be performed at the bedside?->Yes [facility] : 1955 Sex: FFINAL REPORT RAD, CHEST, [...] Conteheport Verified Date/Time: 07/01/2021 09:58:13 Reading Location: [facility] Radiology Reading Room POC-Glucose [id number] 08:48:09 Test Item Value Reference Range Interpretation Comments POC-Glucose Meter (test 127 mg/dL 70-110 H : TE STED AT [facility] code = 1538) 67[address] [facility], 770 30: Child Attendant/Techni kelle ID = [id number] for Loco Chapman Lab Interpretation (test Abnormal code = 77238-0) [facility]PO[facility] [id number] 08:48:09 Test Item Value Reference Range Interpretation Comments POC-GLUCOSE METER 127 mg/dL 70-110 H : TESTED A T [facility] 6720 (BEAKER) (test code = [facility], 1538) 34463: Child Attendant/Techni kelle ID = [id number] for Loco Hicks Basic Metabolic [id number] 06:34:36 Test Item Value Reference Range Interpretation [...] (test code = 8.2 mg/dL 8.4-10.2 L 98436-7) EGFR (test code = 10 mL/min/1.[place] [address]-1) NOT ACCURATE CREATININE CLEARANCE IN PREDICTING GLOMERULAR FILTRATION RATE . ESTIMATED GFR I S NOT APPLICABLE FOR DIALYSIS PATIENTS. BRANDI (test code = BRANDI) Child Attendant ID - PIAYAD L Lab Interpretation Abnormal (test code = 40526-2) [facility] [id number] 06:34:36 Test Item Value Reference Range Interpretation [...] S NOT APPLICABLE FOR DIALYSIS PATIEN TS. Child Attendant ID - LIANA [id number] 06:26:43 Test Item Value Reference Range Interpretation Comments Magnesium (test code = 2.1 mg/dL 1.6-2.6 53735-9) BRANDI (test code = BRANDI) Child Attendant ID - PIAYAD L Lab Interpretation (test Normal code = 83394-8) [facility]2022-[facility]-30 06:26:43 Test Item Value Reference Range Interpretation Comments Phosphorus (test code = 3.6 mg/dL 2.3-4.7 2777-1) BRANDI (test code = BRANDI) Child Attendant ID - PIAYAD L Lab Interpretation (test Normal code = 73306-1) [facility]UM2022-03-30 06:26:43 Test Item Value Reference Range Interpretation Comments MAGNESIUM (BEAKER) (test code = 2.1 mg/dL 1.6-2.6 627) Child Attendant ID - LIANA [id number] 06:26:43 Test Item Value Reference Range Interpretation Comments PHOSPHORUS (BEAKER) (test code = 3.6 mg/dL 2.3-4.7 604) Child Attendant ID - LIANA LCBC (Hemogram only)2021-07-01 05:41:20 Test Item Value Reference Range Interpretation Comments WBC (test code = 6690-2) 4.8 See_Comment [A utomated message] The system bettermarks generated this result transmitted ref erence range: 3.5 - 10 .5 K/L. The refe rence range was not u sed to interpret this result as normal/abnor mal. RBC (test code = 789-8) 2.60 See_Comment L [Au tomated message] The system bettermarks generated this result transmitted ref erence range: 3.93 - 5 .22 M/L. The refe rence range was not u sed to interpret this result as normal/abnor mal. MCHC (test code = 786-4) 32.1 See_Comment L [A utomated message] The system bettermarks generated this result transmitted ref erence range: [...] L [Aut omated message] 777-3) The system bettermarks generated this result transmitted ref erence range: 150 - 45 0 K/CU MM. The referen ce range was not u sed to interpret this result as normal/abnor mal. MPV (test code = 11.3 fL 9.4-12.3 28584-5) nRBC (test code = 413) 0 See_Comment [Aut omated message] The system bettermarks generated this result transmitted ref erence range: 0 - 0 /1 00 WBC. The refere nce range was not u sed to interpret this result as normal/abnor mal. Lab Interpretation (test Abnormal code = 31179-4) [facility] (HEMOGRAM ONLY)2021-07-01 05:41:20 Test Item Value [...] WBC 0-0 (test code = 413) POCT-GLUCOSE [id number] 21:14:47 Test Item Value Reference Range Interpretation Comments POC-GLUCOSE METER 159 mg/dL 70-110 H : TESTED A T [facility] 6720 (BEAKER) (test code = [place] [place], 1538) [address]: Child Attendant/Techni kelle ID = [id number] for RO FRANCES, MACKENZIE RAD, ABDOMEN/KUB, 1 VIEW [id number] 18:59:00Reason for exam:- >constipationShould this be performed at the bedside?->Yes [facility] : 1955 Sex: FFINAL REPORT Exam: RAD, ABDOMEN/KUB, 1 VIEW APDate: 06/30/2021 6:58 PM Indication:constipation COMPARISON: 06/24/2021 DISCUSSION/IMPRESSION: The lower thorax is within normal limits. Nonspecific bowel gas pattern. No evidence of free air within the limitations of this study. Signed: Kb Gregorio Verified Date/Time: 06/30/2021 18:59:30 Reading Location: [address] Reading Room POCT-GLUCOSE [id number] 17:39:03 Test Item Value Reference Range Interpretation Comments POC-GLUCOSE METER 204 mg/dL 70-110 H : [facility] T [facility] ([employer]) (test code = [facility], 1538) 04536: Child Attendant/Techni kelle ID = [id number] for OR PHEY, EDMUNDO POCT-GLUCOSE [id number] 12:35:41 Test Item Value Reference Range Interpretation Comments POC-GLUCOSE METER 136 mg/dL 70-110 H : TESTED A T [facility] 6720 ([employer]) (test code = [facility], 1538) 90013: Child Attendant/Techni kelle ID = [id number] for OR PHEY, EDMUNDO RAD, CHEST, 1 VIEW, NON [id number] 09:21:00Reason for exam:->post-opShould this be performed at the bedside?->Yes [facility] : 1955 Sex: FFINAL [...] Conteh Verified Date/Time: 06/30/2021 09:21:42 Reading Location: [facility] Radiology Reading Room POCT-GLUCOSE [id number] 08:26:49 Test Item Value Reference Range Interpretation Comments POC-GLUCOSE METER 132 mg/dL 70-110 H : TESTED A T [facility] 6720 (BEAKER) (test code = [facility], 1538) [address]: Child Attendant/Techni kelle ID = [id number] for OR EDMUNDO BOWIE BASIC METABOLIC [id number] 05:31:46 Test Item Value Reference Range Interpretation [...] S NOT APPLICABLE FOR DIALYSIS PATIEN TS. Child Attendant ID - LIANA [id number] 05:28:01 Test Item Value Reference Range Interpretation Comments MAGNESIUM (BEAKER) (test code = 1.8 mg/dL 1.6-2.6 627) Child Attendant ID - BURKEAYAD [id number] 05:28:01 Test Item Value Reference Range Interpretation Comments PHOSPHORUS (BEAKER) (test code = 2.6 mg/dL 2.3-4.7 604) Child Attendant ID - BURKEAYAD [facility] (HEMOGRAM ONLY)2021-06-30 05:03:10 Test Item Value [...] 0-0 (test code = 413) Prepare Leuko-Red [id number] 23:54:00 Test Item Value Reference Range Interpretation Comments CROSSMATCH (test code = 2264) COMPATIBLE Unit ABO (test code = O Pos 0359971) UNIT NUMBER (test code = [id number] 934-0) Status (test code = 7697336) TX_TIMEINCHART Blood Bank Product (test code RED BLOOD CELLS = 2263) PRODUCT CODE (test code = L8370J18 933-2) [facility] [id number] 23:54:00 Test Item Value Reference Range Interpretation Comments CROSSMATCH (test code = 2264) COMPATIBLE Unit ABO (test code = O Pos 0219119) UNIT NUMBER (test code = [id number] 934-0) Status (test code = 5066819) [facility] Blood [facility] Product (test code RED BLOOD CELLS = 2263) PRODUCT CODE (test code = E3381V89 933-2) [facility] [id number] 23:54:00 Test Item Value Reference Range Interpretation Comments CROSSMATCH (test code = 2264) COMPATIBLE Unit ABO (test code = O Pos 3639529) UNIT NUMBER (test code = [id number] 934-0) Status (test code = 8423120) TX_TIMEINCHART Blood Bank Product (test code RED BLOOD CELLS = 2263) PRODUCT CODE (test code = W1342R81 933-2) [facility] [id number] 23:54:00 Test Item Value Reference Range Interpretation Comments CROSSMATCH (test code = 2264) COMPATIBLE Unit ABO (test code = O Pos 9500183) UNIT NUMBER (test code = [id number] 934-0) Status (test code = 2878386) TX_TIMEINCHART Blood Bank Product (test code RED BLOOD CELLS = 2263) PRODUCT CODE (test code = Z5905S98 933-2) [facility] [id number] 23:54:00 Test Item Value Reference Range Interpretation Comments CROSSMATCH (test code = 2264) COMPATIBLE Unit ABO (test code = O Pos 2587598) UNIT NUMBER (test code = [id number] 934-0) Status (test code = 0066954) [facility] Blood Bank Product (test code RED BLOOD CELLS = 2263) PRODUCT CODE (test code = F6659K31 933-2) [facility] [id number] 23:54:00 Test Item Value Reference Range Interpretation Comments CROSSMATCH (test code = 2264) COMPATIBLE Unit ABO (test code = O Pos 8515202) UNIT NUMBER (test code = [id number] 934-0) Status (test code = 3810574) TX_TIMEINCHART Blood Bank Product (test code RED BLOOD CELLS = 2263) PRODUCT CODE (test code = D7988F53 933-2) [facility]uk[facility] [id number] 23:54:00 Test Item Value Reference Range Interpretation Comments CROSSMATCH (test code = 2264) COMPATIBLE Unit ABO (test code = O Pos 2558480) UNIT NUMBER (test code = [id number] 934-0) Status (test code = 0639269) TX_TIMEINCHART Blood Bank Product (test code RED BLOOD CELLS = 2263) PRODUCT CODE (test code = A0196T92 933-2) [facility] Leuk[facility]Red [id number] 23:54:00 Test Item Value Reference Range Interpretation Comments CROSSMATCH (test code = 2264) COMPATIBLE Unit ABO (test code = O Pos 8603775) UNIT NUMBER (test code = [id number] 934-0) Status (test code = 7938377) TX_TIMEINCHART Blood Bank Product (test code RED BLOOD CELLS = 2263) PRODUCT CODE (test code = H4838S00 933-2) [facility] [id number] 23:54:00 Test Item Value Reference Range Interpretation Comments CROSSMATCH (test code = 2264) COMPATIBLE Unit ABO (test code = O Pos 4452876) UNIT NUMBER (test code = [id number] 934-0) Status (test code = 4165107) TX_TIMEINCHART Blood Bank Product (test code RED BLOOD CELLS = 2263) PRODUCT CODE (test code = U1163H30 933-2) [facility] [id number] 23:54:00 Test Item Value Reference Range Interpretation Comments CROSSMATCH (test code = 2264) COMPATIBLE Unit ABO (test code = O Pos 2647368) UNIT NUMBER (test code = [id number] 934-0) Status (test code = 8081938) TX_TIMEINCHART Blood Bank Product (test code RED BLOOD CELLS = 2263) PRODUCT CODE (test code = J1298O08 933-2) [facility] Leuk[facility]-Red [id number] 23:54:00 Test Item Value Reference Range Interpretation Comments CROSSMATCH (test code = 2264) COMPATIBLE Unit ABO (test code = O Pos 6923211) UNIT NUMBER (test code = [id number] 934-0) Status (test code = 3645090) TX_TIMEINCHART Blood Bank Product (test code RED BLOOD CELLS = 2263) PRODUCT CODE (test code = W3263S24 933-2) [facility] [id number] 23:54:00 Test Item Value Reference Range Interpretation Comments CROSSMATCH (test code = 2264) COMPATIBLE Unit ABO (test code = O Pos 5320255) UNIT NUMBER (test code = [id number] 934-0) Status (test code = 1974829) TX_TIMEINCHART Blood Bank Product (test code RED BLOOD CELLS = 2263) PRODUCT CODE (test code = H2913E00 933-2) [facility] [id number] 23:54:00 Test Item Value Reference Range Interpretation Comments CROSSMATCH (test code = 2264) COMPATIBLE Unit ABO (test code = O Pos 7494215) UNIT NUMBER (test code = [id number] 934-0) Status (test code = 4095230) [facility] Product (test code RED BLOOD CELLS = 2263) PRODUCT CODE (test code = L7528O47 933-2) [facility] [id number] 23:54:00 Test Item Value Reference Range Interpretation Comments CROSSMATCH (test code = 2264) COMPATIBLE Unit ABO (test code = O Pos 3785701) UNIT NUMBER (test code = [id number] 934-0) Status (test code = 8956405) [facility] Blood Bank Product (test code RED BLOOD CELLS = 2263) PRODUCT CODE (test code = M2882I02 933-2) [facility] [id number] 22:04:06 Test Item Value Reference Range Interpretation Comments POC-GLUCOSE METER 149 mg/dL 70-110 H : TESTED A T [facility] 6720 (BEAKER) (test code = [facility], 1538) [address]: Child Attendant/Techni kelle ID = [id number] for [place]acerrada, Ti pastora POCT-GLUCOSE [id number] 17:55:17 Test Item Value Reference Range Interpretation Comments POC-GLUCOSE METER 150 mg/dL 70-110 H : TESTED A T [facility] 6720 (BEAKER) (test code = [facility], 1538) [address]: Child Attendant/Techni kelle ID = [id number] for OR PHEY, EDMUNDO POCT-GLUCOSE [id number] 15:31:47 Test Item Value Reference Range Interpretation Comments POC-GLUCOSE METER 155 mg/dL 70-110 H : TESTED A T [facility] 6720 (BEAKER) (test code = [facility], 1538) [address]: Child Attendant/Techni kelle ID = [id number] for OR PHEY, EDMUNDO RAD, CHEST, 1 VIEW, NON [id number] 10:41:00Reason for exam:->post-opShould this be performed at the bedside?->Yes [facility] 1955 Sex: [...] edema or viral pneumonia. Signed: Boogie Conteh MDReport Verified Date/Time: 06/29/2021 10:41:18 Reading Location: [facility] Radiology Reading Room POC-Glucose [id number] 08:51:04 Test Item Value Reference Range Interpretation Comments POC-Glucose Meter (test 208 mg/dL 70-110 H : TE STED AT [facility] code = 1538) [address] [facility], 770 30: Child Attendant/Techni kelle ID = [id number] for ORPHEY, EDMUNDO Lab Interpretation (test Abnormal code = 03391-6) [facility] [id number] 08:51:04 Test Item Value Reference Range Interpretation Comments POC-Glucose Meter (test 208 mg/dL 70-110 H : TE STED AT [facility] code = 1538) 20 [facility], 770 30: Child Attendant/Techni kelle ID = [id number] for ORPHEY, EDMUNDO Lab Interpretation (test Abnormal code = 22826-9) [facility] CenterPO[facility] [id number] 08:51:04 Test Item Value Reference Range Interpretation Comments POC-GLUCOSE METER 208 mg/dL 70-110 H : TESTED [facility] 6720 (BEAKER) (test code = [place], 1538) [address]: Child Attendant/Techni kelle ID = [id number] for OR JAMIR EDMUNDO Basic Metabolic [id number] 06:07:27 Test Item Value Reference Range Interpretation [...] (test code = 8.0 mg/dL 8.4-10.2 L 97843-4) EGFR (test code = 9 mL/min/1.73 [place] [address]-8) NOT ACCURATE CREATININE CLEARANCE IN PREDICTING GLOMERULAR FILTRATION RATE . ESTIMATED GFR I S NOT APPLICABLE FOR DIALYSIS PATIENTS. BRANDI (test code = BRANDI) Child Attendant ID - HIEN M Lab Interpretation Abnormal (test code = 64780-9) [facility] Metabolic [id number] 06:07:27 Test Item Value Reference Range Interpretation [...] (test code = 8.0 mg/dL 8.4-10.2 L 09038-0) EGFR (test code = 9 mL/min/1.[place] [address]-9) NOT ACCURATE CREATININE CLEARANCE IN PREDICTING GLOMERULAR FILTRATION RATE . ESTIMATED GFR I S NOT APPLICABLE FOR DIALYSIS PATIENTS. BRANDI (test code = BRANDI) Child Attendant [employer] Lab Interpretation Abnormal (test code = 43703-5) [facility] Metabolic [id number] 06:07:27 Test Item Value Reference Range Interpretation [...] (test code = 8.0 mg/dL 8.4-10.2 L 56640-3) EGFR (test code = 9 mL/min/1.[place] [address]-9) NOT ACCURATE CREATININE CLEARANCE IN PREDICTING GLOMERULAR FILTRATION RATE . ESTIMATED GFR I S NOT APPLICABLE FOR DIALYSIS PATIENTS. BRANDI (test code = BRANDI) Child Attendant [employer] Lab Interpretation Abnormal (test code = 57377-3) [facility] METABOLIC [id number] 06:07:27 Test Item Value Reference Range Interpretation [...] S NOT APPLICABLE FOR DIALYSIS PATIEN TS. Child Attendant ID - [facility] [id number] 06:05:44 Test Item Value Reference Range Interpretation Comments Phosphorus (test code = 2.5 mg/dL 2.3-4.7 2777-1) BRANDI (test code = BRANDI) Child Attendant ID - [facility] Lab Interpretation (test Normal code = 14053-4) [facility]2022-[facility]-28 06:05:44 Test Item Value Reference Range Interpretation Comments Phosphorus (test code = 2.5 mg/dL 2.3-4.7 2777-1) BRANDI (test code = BRANDI) Child Attendant ID - [facility] Lab Interpretation (test Normal code = 11434-5) [facility]2022-03-28 06:05:44 Test Item Value Reference Range Interpretation Comments Phosphorus (test code = 2.5 mg/dL 2.3-4.7 2777-1) BRANDI (test code = BRANDI) Child Attendant ID - [facility] Lab Interpretation (test Normal code = 69730-8) [facility]OSPH[facility]US2022-03-28 06:05:44 Test Item Value Reference Range Interpretation Comments PHOSPHORUS (BEAKER) (test code = 2.5 mg/dL 2.3-4.7 604) Child Attendant ID - [facility] [id number] 06:05:43 Test Item Value Reference Range Interpretation Comments Magnesium (test code = 2.2 mg/dL 1.6-2.6 73755-0) BRANDI (test code = BRANDI) Child Attendant ID - [facility] Lab Interpretation (test Normal code = 45070-0) [facility] Center[facility]2022-03-28 06:05:43 Test Item Value Reference Range Interpretation Comments Magnesium (test code = 2.2 mg/dL 1.6-2.6 78707-0) BRANDI (test code = BRANDI) Child Attendant ID - HIEN M Lab Interpretation (test Normal code = 38503-1) [facility]2022-03-28 06:05:43 Test Item Value Reference Range Interpretation Comments Magnesium (test code = 2.2 mg/dL 1.6-2.6 58689-7) BRANDI (test code = BRANDI) Child Attendant ID - HIEN M Lab Interpretation (test Normal code = 05660-5) [facility]2022-03-28 06:05:43 Test Item Value Reference Range Interpretation Comments MAGNESIUM (BEAKER) (test code = 2.2 mg/dL 1.6-2.6 627) Child Attendant ID - HIEN [facility] (Hemogram only)2021-06-29 05:32:19 Test Item Value Reference Range Interpretation Comments WBC (test code = 6690-2) 4.7 See_Comment [A utomated message] The system bettermarks generated this result transmitted ref erence range: 3.5 - 10 .5 K/L. The refe rence range was not u sed to interpret this result as normal/abnor mal. RBC (test code = 789-8) 2.94 See_Comment L [Au tomated message] The system [employer] generated this result transmitted ref erence range: 3.93 - 5 .22 M/L. The refe rence range was not u sed to interpret this result as normal/abnor mal. MCHC (test code = 786-4) 31.8 See_Comment L [A utomated message] The system [employer] generated this result transmitted ref erence range: [...] L [Aut omated message] 777-3) The system [employer] generated this result transmitted ref erence range: 150 - 45 0 K/CU MM. The referen ce range was not u sed to interpret this result as normal/abnor mal. MPV (test code = 12.2 fL 9.4-12.3 70408-6) nRBC (test code = 413) 0 See_Comment [Aut omated message] The system [employer] generated this result transmitted ref erence range: 0 - 0 /1 00 WBC. The refere nce range was not u sed to interpret this result as normal/abnor mal. Lab Interpretation (test Abnormal code = 25570-3) [facility] (Hemogram only)2021-06-29 05:32:19 Test Item Value Reference Range Interpretation Comments WBC (test code = 6690-2) 4.7 See_Comment [A utomated message] The system [employer] generated this result transmitted ref erence range: 3.5 - 10 .5 K/L. The refe rence range was not u sed to interpret this result as normal/abnor mal. RBC (test code = 789-8) 2.94 See_Comment L [Au tomated message] The system [employer] generated this result transmitted ref erence range: 3.93 - 5 .22 M/L. The refe rence range was not u sed to interpret this result as normal/abnor mal. MCHC (test code = 786-4) 31.8 See_Comment L [A utomated message] The system [employer] generated this result transmitted ref erence range: [...] L [Aut omated message] 777-3) The system [employer] generated this result transmitted ref erence range: 150 - 45 0 K/CU MM. The referen ce range was not u sed to interpret this result as normal/abnor mal. MPV (test code = 12.2 fL 9.4-12.3 73733-2) nRBC (test code = 413) 0 See_Comment [Aut omated message] The system [employer] generated this result transmitted ref erence range: 0 - 0 /1 00 WBC. The refere nce range was not u sed to interpret this result as normal/abnor mal. Lab Interpretation (test Abnormal code = 82747-1) [facility] (Hemogram only)2021-06-29 05:32:19 Test Item Value Reference Range Interpretation Comments WBC (test code = 6690-2) 4.7 See_Comment [A utomated message] The system [employer] generated this result transmitted ref erence range: 3.5 - 10 .5 K/L. The refe rence range was not u sed to interpret this result as normal/abnor mal. RBC (test code = 789-8) 2.94 See_Comment L [Au tomated message] The system [employer] generated this result transmitted ref erence range: 3.93 - 5 .22 M/L. The refe rence range was not u sed to interpret this result as normal/abnor mal. MCHC (test code = 786-4) 31.8 See_Comment L [A utomated message] The system [employer] generated this result transmitted ref erence range: [...] L [Aut omated message] 777-3) The system [employer] generated this result transmitted ref erence range: 150 - 45 0 K/CU MM. The referen ce range was not u sed to interpret this result as normal/abnor mal. MPV (test code = 12.2 fL 9.4-12.3 77381-3) nRBC (test code = 413) 0 See_Comment [Aut omated message] The system [employer]marks generated this result transmitted ref erence range: 0 - 0 /1 00 WBC. The refere nce range was not u sed to interpret this result as normal/abnor mal. Lab Interpretation (test Abnormal code = 66331-4) [facility] (HEMOGRAM ONLY)2021-06-29 05:32:19 Test Item Value [...] WBC 0-0 (test code = 413) POC-Glucose [id number] 19:54:37 Test Item Value Reference Range Interpretation Comments POC-Glucose Meter (test 188 mg/dL 70-110 H : TE STED AT [facility] code = 1538) [address] [place], [address]: Child Attendant/Techni kelle ID = [id number] for RAMON SPRING Lab Interpretation (test Abnormal code = 05231-0) [facility] [id number] 19:54:37 Test Item Value Reference Range Interpretation Comments POC-GLUCOSE METER 188 mg/dL 70-110 H : TESTED A T [facility] 6720 (BEAKER) (test code = [place] [facility], 1538) [address]: Child Attendant/Techni kelle ID = [id number] for RAMON FLORES POCT-GLUCOSE [id number] 17:33:41 Test Item Value Reference Range Interpretation Comments POC-GLUCOSE METER 166 mg/dL 70-110 H : TESTED A T [facility] 6720 (BEAKER) (test code = [facility] [place] [facility], 1538) [address]: Child Attendant/Techni kelle ID = [id number] for Kayla Emanuel CBC with platelet count + automated [id number] 15:34:06 Test Item Value Reference Range Interpretation Comments WBC (test code = 6690-2) 4.6 See_Comment [A utomated message] The system bettermarks generated this result transmitted ref erence range: 3.5 - 10 .5 K/L. The refe rence range was not u sed to interpret this result as normal/abnor mal. RBC (test code = 789-8) 2.86 See_Comment L [Au tomated message] The system [employer] generated this result transmitted ref erence range: 3.93 - 5 .22 M/L. The refe rence range was not u sed to interpret this result as normal/abnor mal. MCHC (test code = 786-4) 32.1 See_Comment L [A utomated message] The system [employer]marks generated this result transmitted ref erence range: [...] L [Aut omated message] 777-3) The system [employer]marks generated this result transmitted ref erence range: 150 - 45 0 K/CU MM. The referen ce range was not u sed to interpret this result as normal/abnor mal. MPV (test code = 11.0 fL 9.4-12.3 43239-0) nRBC (test code = 413) 0 See_Comment [Aut omated message] The system bettermarks generated this result transmitted ref erence range: [...] See_Comment [Aut omated message] 670) The system bettermarks generated this result transmitted ref erence range: 1.56 - 6 .13 K/L. The refe rence range was not u sed to interpret this result as normal/abnor mal. # Lymphs (test code = 0.73 See_Comment L [Auto mated message] 414) The system bettermarks generated this result transmitted ref erence range: 1.18 - 3 .74 K/L. The refe rence range was not u sed to interpret this result as normal/abnor mal. # Monos (test code = 0.62 See_Comment H [Autom ated message] 415) The system bettermarks generated this result transmitted ref erence range: 0.24 - 0 .36 K/L. The refe rence range was not u sed to interpret this result as normal/abnor mal. # Eos (test code = 416) 0.24 See_Comment [Au tomated message] The system bettermarks generated this result transmitted ref erence range: 0.04 - 0 .36 K/L. The refe rence range was not u sed to interpret this result as normal/abnor mal. # Baso (test code = 417) 0.04 See_Comment [A utomated message] The system bettermarks generated this result transmitted ref erence range: 0.01 - 0 .08 K/L. The refe rence range was not u sed to interpret this result as normal/abnor mal. Immature 0 % 0-1 Granulocytes-Relative (test code = 2801) Lab Interpretation (test Abnormal code = 85555-5) [facility] with platelet count + automated [id number] 15:34:06 Test Item Value Reference Range Interpretation Comments WBC (test code = 6690-2) 4.6 See_Comment [A utomated message] The system bettermarks generated this result transmitted ref erence range: 3.5 - 10 .5 K/L. The refe rence range was not u sed to interpret this result as normal/abnor mal. RBC (test code = 789-8) 2.86 See_Comment L [Au tomated message] The system bettermarks generated this result transmitted ref erence range: 3.93 - 5 .22 M/L. The refe rence range was not u sed to interpret this result as normal/abnor mal. MCHC (test code = 786-4) 32.1 See_Comment L [A utomated message] The system [employer]marks generated this result transmitted ref erence range: [...] L [Aut omated message] 777-3) The system bettermarks generated this result transmitted ref erence range: 150 - 45 0 K/CU MM. The referen ce range was not u sed to interpret this result as normal/abnor mal. MPV (test code = 11.0 fL 9.4-12.3 71275-7) nRBC (test code = 413) 0 See_Comment [Aut omated message] The system bettermarks generated this result transmitted ref erence range: [...] See_Comment [Aut omated message] 670) The system bettermarks generated this result transmitted ref erence range: 1.56 - 6 .13 K/L. The refe rence range was not u sed to interpret this result as normal/abnor mal. # Lymphs (test code = 0.73 See_Comment L [Auto mated message] 414) The system bettermarks generated this result transmitted ref erence range: 1.18 - 3 .74 K/L. The refe rence range was not u sed to interpret this result as normal/abnor mal. # Monos (test code = 0.62 See_Comment H [Autom ated message] 415) The system bettermarks generated this result transmitted ref erence range: 0.24 - 0 .36 K/L. The refe rence range was not u sed to interpret this result as normal/abnor mal. # Eos (test code = 416) 0.24 See_Comment [Au tomated message] The system bettermarks generated this result transmitted ref erence range: 0.04 - 0 .36 K/L. The refe rence range was not u sed to interpret this result as normal/abnor mal. # Baso (test code = 417) 0.04 See_Comment [A utomated message] The system bettermarks generated this result transmitted ref erence range: 0.01 - 0 .08 K/L. The refe rence range was not u sed to interpret this result as normal/abnor mal. Immature 0 % 0-1 Granulocytes-Relative (test code = 2801) Lab Interpretation (test Abnormal code = 30102-0) [facility] + automated [id number] 15:34:06 Test Item Value Reference Range Interpretation Comments WBC (test code = 6690-2) 4.6 See_Comment [A utomated message] The system bettermarks generated this result transmitted ref erence range: 3.5 - 10 .5 K/L. The refe rence range was not u sed to interpret this result as normal/abnor mal. RBC (test code = 789-8) 2.86 See_Comment L [Au tomated message] The system bettermarks generated this result transmitted ref erence range: 3.93 - 5 .22 M/L. The refe rence range was not u sed to interpret this result as normal/abnor mal. MCHC (test code = 786-4) 32.1 See_Comment L [A utomated message] The system bettermarks generated this result transmitted ref erence range: [...] L [Aut omated message] 777-3) The system bettermarks generated this result transmitted ref erence range: 150 - 45 0 K/CU MM. The referen ce range was not u sed to interpret this result as normal/abnor mal. MPV (test code = 11.0 fL 9.4-12.3 40003-5) nRBC (test code = 413) 0 See_Comment [Aut omated message] The system bettermarks generated this result transmitted ref erence range: [...] See_Comment [Aut omated message] 670) The system bettermarks generated this result transmitted ref erence range: 1.56 - 6 .13 K/L. The refe rence range was not u sed to interpret this result as normal/abnor mal. # Lymphs (test code = 0.73 See_Comment L [Auto mated message] 414) The system bettermarks generated this result transmitted ref erence range: 1.18 - 3 .74 K/L. The refe rence range was not u sed to interpret this result as normal/abnor mal. # Monos (test code = 0.62 See_Comment H [Autom ated message] 415) The system [employer]marks generated this result transmitted ref erence range: 0.24 - 0 .36 K/L. The refe rence range was not u sed to interpret this result as normal/abnor mal. # Eos (test code = 416) 0.24 See_Comment [Au tomated message] The system bettermarks generated this result transmitted ref erence range: 0.04 - 0 .36 K/L. The refe rence range was not u sed to interpret this result as normal/abnor mal. # Baso (test code = 417) 0.04 See_Comment [A utomated message] The system bettermarks generated this result transmitted ref erence range: 0.01 - 0 .08 K/L. The refe rence range was not u sed to interpret this result as normal/abnor mal. Immature 0 % 0-1 Granulocytes-Relative (test code = 2801) Lab Interpretation (test Abnormal code = 22758-8) [facility] with platelet count + automated [id number] 15:34:06 Test Item Value Reference Range Interpretation Comments WBC (test code = 6690-2) 4.6 See_Comment [A utomated message] The system bettermarks generated this result transmitted ref erence range: 3.5 - 10 .5 K/L. The refe rence range was not u sed to interpret this result as normal/abnor mal. RBC (test code = 789-8) 2.86 See_Comment L [Au tomated message] The system bettermarks generated this result transmitted ref erence range: 3.93 - 5 .22 M/L. The refe rence range was not u sed to interpret this result as normal/abnor mal. MCHC (test code = 786-4) 32.1 See_Comment L [A utomated message] The system bettermarks generated this result transmitted ref erence range: [...] L [Aut omated message] 777-3) The system bettermarks generated this result transmitted ref erence range: 150 - 45 0 K/CU MM. The referen ce range was not u sed to interpret this result as normal/abnor mal. MPV (test code = 11.0 fL 9.4-12.3 25336-3) nRBC (test code = 413) 0 See_Comment [Aut omated message] The system bettermarks generated this result transmitted ref erence range: [...] See_Comment [Aut omated message] 670) The system bettermarks generated this result transmitted ref erence range: 1.56 - 6 .13 K/L. The refe rence range was not u sed to interpret this result as normal/abnor mal. # Lymphs (test code = 0.73 See_Comment L [Auto mated message] 414) The system bettermarks generated this result transmitted ref erence range: 1.18 - 3 .74 K/L. The refe rence range was not u sed to interpret this result as normal/abnor mal. # Monos (test code = 0.62 See_Comment H [Autom ated message] 415) The system bettermarks generated this result transmitted ref erence range: 0.24 - 0 .36 K/L. The refe rence range was not u sed to interpret this result as normal/abnor mal. # Eos (test code = 416) 0.24 See_Comment [Au tomated message] The system bettermarks generated this result transmitted ref erence range: 0.04 - 0 .36 K/L. The refe rence range was not u sed to interpret this result as normal/abnor mal. # Baso (test code = 417) 0.04 See_Comment [A utomated message] The system bettermarks generated this result transmitted ref erence range: 0.01 - 0 .08 K/L. The refe rence range was not u sed to interpret this result as normal/abnor mal. Immature 0 % 0-1 Granulocytes-Relative (test code = 2801) Lab Interpretation (test Abnormal code = 36755-2) [facility] [id number] 15:34:06 Test Item Value Reference Range Interpretation Comments WBC (test code = 6690-2) 4.6 See_Comment [A utomated message] The system bettermarks generated this result transmitted ref erence range: 3.5 - 10 .5 K/L. The refe rence range was not u sed to interpret this result as normal/abnor mal. RBC (test code = 789-8) 2.86 See_Comment L [Au tomated message] The system bettermarks generated this result transmitted ref erence range: 3.93 - 5 .22 M/L. The refe rence range was not u sed to interpret this result as normal/abnor mal. MCHC (test code = 786-4) 32.1 See_Comment L [A utomated message] The system bettermarks generated this result transmitted ref erence range: [...] L [Aut omated message] 777-3) The system bettermarks generated this result transmitted ref erence range: 150 - 45 0 K/CU MM. The referen ce range was not u sed to interpret this result as normal/abnor mal. MPV (test code = 11.0 fL 9.4-12.3 66366-5) nRBC (test code = 413) 0 See_Comment [Aut omated message] The system bettermarks generated this result transmitted ref erence range: [...] See_Comment [Aut omated message] 670) The system bettermarks generated this result transmitted ref erence range: 1.56 - 6 .13 K/L. The refe rence range was not u sed to interpret this result as normal/abnor mal. # Lymphs (test code = 0.73 See_Comment L [Auto mated message] 414) The system bettermarks generated this result transmitted ref erence range: 1.18 - 3 .74 K/L. The refe rence range was not u sed to interpret this result as normal/abnor mal. # Monos (test code = 0.62 See_Comment H [Autom ated message] 415) The system bettermarks generated this result transmitted ref erence range: 0.24 - 0 .36 K/L. The refe rence range was not u sed to interpret this result as normal/abnor mal. # Eos (test code = 416) 0.24 See_Comment [Au tomated message] The system bettermarks generated this result transmitted ref erence range: 0.04 - 0 .36 K/L. The refe rence range was not u sed to interpret this result as normal/abnor mal. # Baso (test code = 417) 0.04 See_Comment [A utomated message] The system bettermarks generated this result transmitted ref erence range: 0.01 - 0 .08 K/L. The refe rence range was not u sed to interpret this result as normal/abnor mal. Immature 0 % 0-1 Granulocytes-Relative (test code = 2801) Lab Interpretation (test Abnormal code = 54186-0) [facility] with platelet count + automated [id number] 15:34:06 Test Item Value Reference Range Interpretation Comments WBC (test code = 6690-2) 4.6 See_Comment [A utomated message] The system bettermarks generated this result transmitted ref erence range: 3.5 - 10 .5 K/L. The refe rence range was not u sed to interpret this result as normal/abnor mal. RBC (test code = 789-8) 2.86 See_Comment L [Au tomated message] The system bettermarks generated this result transmitted ref erence range: 3.93 - 5 .22 M/L. The refe rence range was not u sed to interpret this result as normal/abnor mal. MCHC (test code = 786-4) 32.1 See_Comment L [A utomated message] The system bettermarks generated this result transmitted ref erence range: [...] L [Aut omated message] 777-3) The system bettermarks generated this result transmitted ref erence range: 150 - 45 0 K/CU MM. The referen ce range was not u sed to interpret this result as normal/abnor mal. MPV (test code = 11.0 fL 9.4-12.3 47200-9) nRBC (test code = 413) 0 See_Comment [Aut omated message] The system bettermarks generated this result transmitted ref erence range: [...] See_Comment [Aut omated message] 670) The system bettermarks generated this result transmitted ref erence range: 1.56 - 6 .13 K/L. The refe rence range was not u sed to interpret this result as normal/abnor mal. # Lymphs (test code = 0.73 See_Comment L [Auto mated message] 414) The system bettermarks generated this result transmitted ref erence range: 1.18 - 3 .74 K/L. The refe rence range was not u sed to interpret this result as normal/abnor mal. # Monos (test code = 0.62 See_Comment H [Autom ated message] 415) The system bettermarks generated this result transmitted ref erence range: 0.24 - 0 .36 K/L. The refe rence range was not u sed to interpret this result as normal/abnor mal. # Eos (test code = 416) 0.24 See_Comment [Au tomated message] The system bettermarks generated this result transmitted ref erence range: 0.04 - 0 .36 K/L. The refe rence range was not u sed to interpret this result as normal/abnor mal. # Baso (test code = 417) 0.04 See_Comment [A utomated message] The system bettermarks generated this result transmitted ref erence range: 0.01 - 0 .08 K/L. The refe rence range was not u sed to interpret this result as normal/abnor mal. Immature 0 % 0-1 Granulocytes-Relative (test code = 2801) Lab Interpretation (test Abnormal code = 69152-9) [facility] with platelet count + automated [id number] 15:34:06 Test Item Value Reference Range Interpretation Comments WBC (test code = 6690-2) 4.6 See_Comment [A utomated message] The system bettermarks generated this result transmitted ref erence range: 3.5 - 10 .5 K/L. The refe rence range was not u sed to interpret this result as normal/abnor mal. RBC (test code = 789-8) 2.86 See_Comment L [Au tomated message] The system bettermarks generated this result transmitted ref erence range: 3.93 - 5 .22 M/L. The refe rence range was not u sed to interpret this result as normal/abnor mal. MCHC (test code = 786-4) 32.1 See_Comment L [A utomated message] The system bettermarks generated this result transmitted ref erence range: [...] = 57 See_Comment L [Aut omated message] 887-3) The system bettermarks generated this result transmitted ref erence range: 150 - 45 0 K/CU MM. The referen ce range was not u sed to interpret this result as normal/abnor mal. MPV (test code = 11.0 fL 9.4-12.3 11193-1) nRBC (test code = 413) 0 See_Comment [Aut omated message] The system bettermarks generated this result transmitted ref erence range: [...] See_Comment [Aut omated message] 670) The system bettermarks generated this result transmitted ref erence range: 1.56 - 6 .13 K/L. The refe rence range was not u sed to interpret this result as normal/abnor mal. # Lymphs (test code = 0.73 See_Comment L [Auto mated message] 414) The system bettermarks generated this result transmitted ref erence range: 1.18 - 3 .74 K/L. The refe rence range was not u sed to interpret this result as normal/abnor mal. # Monos (test code = 0.62 See_Comment H [Autom ated message] 415) The system bettermarks generated this result transmitted ref erence range: 0.24 - 0 .36 K/L. The refe rence range was not u sed to interpret this result as normal/abnor mal. # Eos (test code = 416) 0.24 See_Comment [Au tomated message] The system bettermarks generated this result transmitted ref erence range: 0.04 - 0 .36 K/L. The refe rence range was not u sed to interpret this result as normal/abnor mal. # Baso (test code = 417) 0.04 See_Comment [A utomated message] The system bettermarks generated this result transmitted ref erence range: 0.01 - 0 .08 K/L. The refe rence range was not u sed to interpret this result as normal/abnor mal. Immature 0 % 0-1 Granulocytes-Relative (test code = 2801) Lab Interpretation (test Abnormal code = 05289-9) [facility] [id number] 15:34:06 Test Item Value Reference Range Interpretation Comments WBC (test code = 6690-2) 4.6 See_Comment [A utomated message] The system bettermarks generated this result transmitted ref erence range: 3.5 - 10 .5 K/L. The refe rence range was not u sed to interpret this result as normal/abnor mal. RBC (test code = 789-8) 2.86 See_Comment L [Au tomated message] The system bettermarks generated this result transmitted ref erence range: 3.93 - 5 .22 M/L. The refe rence range was not u sed to interpret this result as normal/abnor mal. MCHC (test code = 786-4) 32.1 See_Comment L [A utomated message] The system bettermarks generated this result transmitted ref erence range: [...] L [Aut omated message] 777-3) The system bettermarks generated this result transmitted ref erence range: 150 - 45 0 K/CU MM. The referen ce range was not u sed to interpret this result as normal/abnor mal. MPV (test code = 11.0 fL 9.4-12.3 66249-7) nRBC (test code = 413) 0 See_Comment [Aut omated message] The system bettermarks generated this result transmitted ref erence range: [...] See_Comment [Aut omated message] 670) The system bettermarks generated this result transmitted ref erence range: 1.56 - 6 .13 K/L. The refe rence range was not u sed to interpret this result as normal/abnor mal. # Lymphs (test code = 0.73 See_Comment L [Auto mated message] 414) The system bettermarks generated this result transmitted ref erence range: 1.18 - 3 .74 K/L. The refe rence range was not u sed to interpret this result as normal/abnor mal. # Monos (test code = 0.62 See_Comment H [Autom ated message] 415) The system bettermarks generated this result transmitted ref erence range: 0.24 - 0 .36 K/L. The refe rence range was not u sed to interpret this result as normal/abnor mal. # Eos (test code = 416) 0.24 See_Comment [Au tomated message] The system bettermarks generated this result transmitted ref erence range: 0.04 - 0 .36 K/L. The refe rence range was not u sed to interpret this result as normal/abnor mal. # Baso (test code = 417) 0.04 See_Comment [A utomated message] The system bettermarks generated this result transmitted ref erence range: 0.01 - 0 .08 K/L. The refe rence range was not u sed to interpret this result as normal/abnor mal. Immature 0 % 0-1 Granulocytes-Relative (test code = 2801) Lab Interpretation (test Abnormal code = 89210-2) [facility] with platelet count + automated [id number] 15:34:06 Test Item Value Reference Range Interpretation Comments WBC (test code = 6690-2) 4.6 See_Comment [A utomated message] The system bettermarks generated this result transmitted ref erence range: 3.5 - 10 .5 K/L. The refe rence range was not u sed to interpret this result as normal/abnor mal. RBC (test code = 789-8) 2.86 See_Comment L [Au tomated message] The system bettermarks generated this result transmitted ref erence range: 3.93 - 5 .22 M/L. The refe rence range was not u sed to interpret this result as normal/abnor mal. MCHC (test code = 786-4) 32.1 See_Comment L [A utomated message] The system bettermarks generated this result transmitted ref erence range: [...] L [Aut omated message] 777-3) The system bettermarks generated this result transmitted ref erence range: 150 - 45 0 K/CU MM. The referen ce range was not u sed to interpret this result as normal/abnor mal. MPV (test code = 11.0 fL 9.4-12.3 76293-5) nRBC (test code = 413) 0 See_Comment [Aut omated message] The system bettermarks generated this result transmitted ref erence range: [...] See_Comment [Aut omated message] 670) The system bettermarks generated this result transmitted ref erence range: 1.56 - 6 .13 K/L. The refe rence range was not u sed to interpret this result as normal/abnor mal. # Lymphs (test code = 0.73 See_Comment L [Auto mated message] 414) The system bettermarks generated this result transmitted ref erence range: 1.18 - 3 .74 K/L. The refe rence range was not u sed to interpret this result as normal/abnor mal. # Monos (test code = 0.62 See_Comment H [Autom ated message] 415) The system bettermarks generated this result transmitted ref erence range: 0.24 - 0 .36 K/L. The refe rence range was not u sed to interpret this result as normal/abnor mal. # Eos (test code = 416) 0.24 See_Comment [Au tomated message] The system bettermarks generated this result transmitted ref erence range: 0.04 - 0 .36 K/L. The refe rence range was not u sed to interpret this result as normal/abnor mal. # Baso (test code = 417) 0.04 See_Comment [A utomated message] The system bettermarks generated this result transmitted ref erence range: 0.01 - 0 .08 K/L. The refe rence range was not u sed to interpret this result as normal/abnor mal. Immature 0 % 0-1 Granulocytes-Relative (test code = 2801) Lab Interpretation (test Abnormal code = 06811-7) [facility] with platelet count + automated [id number] 15:34:06 Test Item Value Reference Range Interpretation Comments WBC (test code = 6690-2) 4.6 See_Comment [A utomated message] The system bettermarks generated this result transmitted ref erence range: 3.5 - 10 .5 K/L. The refe rence range was not u sed to interpret this result as normal/abnor mal. RBC (test code = 789-8) 2.86 See_Comment L [Au tomated message] The system bettermarks generated this result transmitted ref erence range: 3.93 - 5 .22 M/L. The refe rence range was not u sed to interpret this result as normal/abnor mal. MCHC (test code = 786-4) 32.1 See_Comment L [A utomated message] The system bettermarks generated this result transmitted ref erence range: [...] L [Aut omated message] 777-3) The system bettermarks generated this result transmitted ref erence range: 150 - 45 0 K/CU MM. The referen ce range was not u sed to interpret this result as normal/abnor mal. MPV (test code = 11.0 fL 9.4-12.3 88669-3) nRBC (test code = 413) 0 See_Comment [Aut omated message] The system bettermarks generated this result transmitted ref erence range: [...] See_Comment [Aut omated message] 670) The system bettermarks generated this result transmitted ref erence range: 1.56 - 6 .13 K/L. The refe rence range was not u sed to interpret this result as normal/abnor mal. # Lymphs (test code = 0.73 See_Comment L [Auto mated message] 414) The system bettermarks generated this result transmitted ref erence range: 1.18 - 3 .74 K/L. The refe rence range was not u sed to interpret this result as normal/abnor mal. # Monos (test code = 0.62 See_Comment H [Autom ated message] 415) The system bettermarks generated this result transmitted ref erence range: 0.24 - 0 .36 K/L. The refe rence range was not u sed to interpret this result as normal/abnor mal. # Eos (test code = 416) 0.24 See_Comment [Au tomated message] The system bettermarks generated this result transmitted ref erence range: 0.04 - 0 .36 K/L. The refe rence range was not u sed to interpret this result as normal/abnor mal. # Baso (test code = 417) 0.04 See_Comment [A utomated message] The system bettermarks generated this result transmitted ref erence range: 0.01 - 0 .08 K/L. The refe rence range was not u sed to interpret this result as normal/abnor mal. Immature 0 % 0-1 Granulocytes-Relative (test code = 2801) Lab Interpretation (test Abnormal code = 46470-2) [facility] with platelet count + automated [id number] 15:34:06 Test Item Value Reference Range Interpretation Comments WBC (test code = 6690-2) 4.6 See_Comment [A utomated message] The system bettermarks generated this result transmitted ref erence range: 3.5 - 10 .5 K/L. The refe rence range was not u sed to interpret this result as normal/abnor mal. RBC (test code = 789-8) 2.86 See_Comment L [Au tomated message] The system bettermarks generated this result transmitted ref erence range: 3.93 - 5 .22 M/L. The refe rence range was not u sed to interpret this result as normal/abnor mal. MCHC (test code = 786-4) 32.1 See_Comment L [A utomated message] The system bettermarks generated this result transmitted ref erence range: [...] L [Aut omated message] 777-3) The system bettermarks generated this result transmitted ref erence range: 150 - 45 0 K/CU MM. The referen ce range was not u sed to interpret this result as normal/abnor mal. MPV (test code = 11.0 fL 9.4-12.3 39520-2) nRBC (test code = 413) 0 See_Comment [Aut omated message] The system bettermarks generated this result transmitted ref erence range: [...] See_Comment [Aut omated message] 670) The system bettermarks generated this result transmitted ref erence range: 1.56 - 6 .13 K/L. The refe rence range was not u sed to interpret this result as normal/abnor mal. # Lymphs (test code = 0.73 See_Comment L [Auto mated message] 414) The system bettermarks generated this result transmitted ref erence range: 1.18 - 3 .74 K/L. The refe rence range was not u sed to interpret this result as normal/abnor mal. # Monos (test code = 0.62 See_Comment H [Autom ated message] 415) The system bettermarks generated this result transmitted ref erence range: 0.24 - 0 .36 K/L. The refe rence range was not u sed to interpret this result as normal/abnor mal. # Eos (test code = 416) 0.24 See_Comment [Au tomated message] The system bettermarks generated this result transmitted ref erence range: 0.04 - 0 .36 K/L. The refe rence range was not u sed to interpret this result as normal/abnor mal. # Baso (test code = 417) 0.04 See_Comment [A utomated message] The system bettermarks generated this result transmitted ref erence range: 0.01 - 0 .08 K/L. The refe rence range was not u sed to interpret this result as normal/abnor mal. Immature 0 % 0-1 Granulocytes-Relative (test code = 2801) Lab Interpretation (test Abnormal code = 53643-5) [facility] with platelet count + automated [id number] 15:34:06 Test Item Value Reference Range Interpretation Comments WBC (test code = 6690-2) 4.6 See_Comment [A utomated message] The system bettermarks generated this result transmitted ref erence range: 3.5 - 10 .5 K/L. The refe rence range was not u sed to interpret this result as normal/abnor mal. RBC (test code = 789-8) 2.86 See_Comment L [Au tomated message] The system bettermarks generated this result transmitted ref erence range: 3.93 - 5 .22 M/L. The refe rence range was not u sed to interpret this result as normal/abnor mal. MCHC (test code = 786-4) 32.1 See_Comment L [A utomated message] The system bettermarks generated this result transmitted ref erence range: [...] = 57 See_Comment L [Aut omated message] 497-3) The system bettermarks generated this result transmitted ref erence range: 150 - 45 0 K/CU MM. The referen ce range was not u sed to interpret this result as normal/abnor mal. MPV (test code = 11.0 fL 9.4-12.3 74663-4) nRBC (test code = 413) 0 See_Comment [Aut omated message] The system bettermarks generated this result transmitted ref erence range: [...] See_Comment [Aut omated message] 670) The system bettermarks generated this result transmitted ref erence range: 1.56 - 6 .13 K/L. The refe rence range was not u sed to interpret this result as normal/abnor mal. # Lymphs (test code = 0.73 See_Comment L [Auto mated message] 414) The system bettermarks generated this result transmitted ref erence range: 1.18 - 3 .74 K/L. The refe rence range was not u sed to interpret this result as normal/abnor mal. # Monos (test code = 0.62 See_Comment H [Autom ated message] 415) The system bettermarks generated this result transmitted ref erence range: 0.24 - 0 .36 K/L. The refe rence range was not u sed to interpret this result as normal/abnor mal. # Eos (test code = 416) 0.24 See_Comment [Au tomated message] The system bettermarks generated this result transmitted ref erence range: 0.04 - 0 .36 K/L. The refe rence range was not u sed to interpret this result as normal/abnor mal. # Baso (test code = 417) 0.04 See_Comment [A utomated message] The system bettermarks generated this result transmitted ref erence range: 0.01 - 0 .08 K/L. The refe rence range was not u sed to interpret this result as normal/abnor mal. Immature 0 % 0-1 Granulocytes-Relative (test code = 2801) Lab Interpretation (test Abnormal code = 70164-0) [facility] with platelet count + automated [id number] 15:34:06 Test Item Value Reference Range Interpretation Comments WBC (test code = 6690-2) 4.6 See_Comment [A utomated message] The system bettermarks generated this result transmitted ref erence range: 3.5 - 10 .5 K/L. The refe rence range was not u sed to interpret this result as normal/abnor mal. RBC (test code = 789-8) 2.86 See_Comment L [Au tomated message] The system bettermarks generated this result transmitted ref erence range: 3.93 - 5 .22 M/L. The refe rence range was not u sed to interpret this result as normal/abnor mal. MCHC (test code = 786-4) 32.1 See_Comment L [A utomated message] The system bettermarks generated this result transmitted ref erence range: [...] L [Aut omated message] 777-3) The system bettermarks generated this result transmitted ref erence range: 150 - 45 0 K/CU MM. The referen ce range was not u sed to interpret this result as normal/abnor mal. MPV (test code = 11.0 fL 9.4-12.3 64833-8) nRBC (test code = 413) 0 See_Comment [Aut omated message] The system bettermarks generated this result transmitted ref erence range: [...] See_Comment [Aut omated message] 670) The system bettermarks generated this result transmitted ref erence range: 1.56 - 6 .13 K/L. The refe rence range was not u sed to interpret this result as normal/abnor mal. # Lymphs (test code = 0.73 See_Comment L [Auto mated message] 414) The system bettermarks generated this result transmitted ref erence range: 1.18 - 3 .74 K/L. The refe rence range was not u sed to interpret this result as normal/abnor mal. # Monos (test code = 0.62 See_Comment H [Autom ated message] 415) The system bettermarks generated this result transmitted ref erence range: 0.24 - 0 .36 K/L. The refe rence range was not u sed to interpret this result as normal/abnor mal. # Eos (test code = 416) 0.24 See_Comment [Au tomated message] The system bettermarks generated this result transmitted ref erence range: 0.04 - 0 .36 K/L. The refe rence range was not u sed to interpret this result as normal/abnor mal. # Baso (test code = 417) 0.04 See_Comment [A utomated message] The system bettermarks generated this result transmitted ref erence range: 0.01 - 0 .08 K/L. The refe rence range was not u sed to interpret this result as normal/abnor mal. Immature 0 % 0-1 Granulocytes-Relative (test code = 2801) Lab Interpretation (test Abnormal code = 79222-2) [facility] with platelet count + automated [id number] 15:34:06 Test Item Value Reference Range Interpretation Comments WBC (test code = 6690-2) 4.6 See_Comment [A utomated message] The system bettermarks generated this result transmitted ref erence range: 3.5 - 10 .5 K/L. The refe rence range was not u sed to interpret this result as normal/abnor mal. RBC (test code = 789-8) 2.86 See_Comment L [Au tomated message] The system bettermarks generated this result transmitted ref erence range: 3.93 - 5 .22 M/L. The refe rence range was not u sed to interpret this result as normal/abnor mal. MCHC (test code = 786-4) 32.1 See_Comment L [A utomated message] The system bettermarks generated this result transmitted ref erence range: [...] L [Aut omated message] 777-3) The system bettermarks generated this result transmitted ref erence range: 150 - 45 0 K/CU MM. The referen ce range was not u sed to interpret this result as normal/abnor mal. MPV (test code = 11.0 fL 9.4-12.3 13181-4) nRBC (test code = 413) 0 See_Comment [Aut omated message] The system bettermarks generated this result transmitted ref erence range: [...] See_Comment [Aut omated message] 670) The system bettermarks generated this result transmitted ref erence range: 1.56 - 6 .13 K/L. The refe rence range was not u sed to interpret this result as normal/abnor mal. # Lymphs (test code = 0.73 See_Comment L [Auto mated message] 414) The system bettermarks generated this result transmitted ref erence range: 1.18 - 3 .74 K/L. The refe rence range was not u sed to interpret this result as normal/abnor mal. # Monos (test code = 0.62 See_Comment H [Autom ated message] 415) The system bettermarks generated this result transmitted ref erence range: 0.24 - 0 .36 K/L. The refe rence range was not u sed to interpret this result as normal/abnor mal. # Eos (test code = 416) 0.24 See_Comment [Au tomated message] The system bettermarks generated this result transmitted ref erence range: 0.04 - 0 .36 K/L. The refe rence range was not u sed to interpret this result as normal/abnor mal. # Baso (test code = 417) 0.04 See_Comment [A utomated message] The system bettermarks generated this result transmitted ref erence range: 0.01 - 0 .08 K/L. The refe rence range was not u sed to interpret this result as normal/abnor mal. Immature 0 % 0-1 Granulocytes-Relative (test code = 2801) Lab Interpretation (test Abnormal code = 49819-3) [facility] [id number] 15:34:06 Test Item Value Reference Range Interpretation Comments WBC (test code = 6690-2) 4.6 See_Comment [A utomated message] The system bettermarks generated this result transmitted ref erence range: 3.5 - 10 .5 K/L. The refe rence range was not u sed to interpret this result as normal/abnor mal. RBC (test code = 789-8) 2.86 See_Comment L [Au tomated message] The system bettermarks generated this result transmitted ref erence range: 3.93 - 5 .22 M/L. The refe rence range was not u sed to interpret this result as normal/abnor mal. MCHC (test code = 786-4) 32.1 See_Comment L [A utomated message] The system bettermarks generated this result transmitted ref erence range: [...] L [Aut omated message] 777-3) The system bettermarks generated this result transmitted ref erence range: 150 - 45 0 K/CU MM. The referen ce range was not u sed to interpret this result as normal/abnor mal. MPV (test code = 11.0 fL 9.4-12.3 66631-6) nRBC (test code = 413) 0 See_Comment [Aut omated message] The system bettermarks generated this result transmitted ref erence range: [...] See_Comment [Aut omated message] 670) The system bettermarks generated this result transmitted ref erence range: 1.56 - 6 .13 K/L. The refe rence range was not u sed to interpret this result as normal/abnor mal. # Lymphs (test code = 0.73 See_Comment L [Auto mated message] 414) The system bettermarks generated this result transmitted ref erence range: 1.18 - 3 .74 K/L. The refe rence range was not u sed to interpret this result as normal/abnor mal. # Monos (test code = 0.62 See_Comment H [Autom ated message] 415) The system bettermarks generated this result transmitted ref erence range: 0.24 - 0 .36 K/L. The refe rence range was not u sed to interpret this result as normal/abnor mal. # Eos (test code = 416) 0.24 See_Comment [Au tomated message] The system bettermarks generated this result transmitted ref erence range: 0.04 - 0 .36 K/L. The refe rence range was not u sed to interpret this result as normal/abnor mal. # Baso (test code = 417) 0.04 See_Comment [A utomated message] The system bettermarks generated this result transmitted ref erence range: 0.01 - 0 .08 K/L. The refe rence range was not u sed to interpret this result as normal/abnor mal. Immature 0 % 0-1 Granulocytes-Relative (test code = 2801) Lab Interpretation (test Abnormal code = 97655-3) [facility] with platelet count + automated [id number] 15:34:06 Test Item Value Reference Range Interpretation Comments WBC (test code = 6690-2) 4.6 See_Comment [A utomated message] The system bettermarks generated this result transmitted ref erence range: 3.5 - 10 .5 K/L. The refe rence range was not u sed to interpret this result as normal/abnor mal. RBC (test code = 789-8) 2.86 See_Comment L [Au tomated message] The system bettermarks generated this result transmitted ref erence range: 3.93 - 5 .22 M/L. The refe rence range was not u sed to interpret this result as normal/abnor mal. MCHC (test code = 786-4) 32.1 See_Comment L [A utomated message] The system bettermarks generated this result transmitted ref erence range: [...] L [Aut omated message] 777-3) The system bettermarks generated this result transmitted ref erence range: 150 - 45 0 K/CU MM. The referen ce range was not u sed to interpret this result as normal/abnor mal. MPV (test code = 11.0 fL 9.4-12.3 38965-3) nRBC (test code = 413) 0 See_Comment [Aut omated message] The system bettermarks generated this result transmitted ref erence range: [...] See_Comment [Aut omated message] 670) The system bettermarks generated this result transmitted ref erence range: 1.56 - 6 .13 K/L. The refe rence range was not u sed to interpret this result as normal/abnor mal. # Lymphs (test code = 0.73 See_Comment L [Auto mated message] 414) The system bettermarks generated this result transmitted ref erence range: 1.18 - 3 .74 K/L. The refe rence range was not u sed to interpret this result as normal/abnor mal. # Monos (test code = 0.62 See_Comment H [Autom ated message] 415) The system bettermarks generated this result transmitted ref erence range: 0.24 - 0 .36 K/L. The refe rence range was not u sed to interpret this result as normal/abnor mal. # Eos (test code = 416) 0.24 See_Comment [Au tomated message] The system bettermarks generated this result transmitted ref erence range: 0.04 - 0 .36 K/L. The refe rence range was not u sed to interpret this result as normal/abnor mal. # Baso (test code = 417) 0.04 See_Comment [A utomated message] The system bettermarks generated this result transmitted ref erence range: 0.01 - 0 .08 K/L. The refe rence range was not u sed to interpret this result as normal/abnor mal. Immature 0 % 0-1 Granulocytes-Relative (test code = 2801) Lab Interpretation (test Abnormal code = 34786-1) [facility] with platelet count + automated [id number] 15:34:06 Test Item Value Reference Range Interpretation Comments WBC (test code = 6690-2) 4.6 See_Comment [A utomated message] The system bettermarks generated this result transmitted ref erence range: 3.5 - 10 .5 K/L. The refe rence range was not u sed to interpret this result as normal/abnor mal. RBC (test code = 789-8) 2.86 See_Comment L [Au tomated message] The system bettermarks generated this result transmitted ref erence range: 3.93 - 5 .22 M/L. The refe rence range was not u sed to interpret this result as normal/abnor mal. MCHC (test code = 786-4) 32.1 See_Comment L [A utomated message] The system bettermarks generated this result transmitted ref erence range: [...] = 57 See_Comment L [Aut omated message] 587-3) The system bettermarks generated this result transmitted ref erence range: 150 - 45 0 K/CU MM. The referen ce range was not u sed to interpret this result as normal/abnor mal. MPV (test code = 11.0 fL 9.4-12.3 28660-3) nRBC (test code = 413) 0 See_Comment [Aut omated message] The system bettermarks generated this result transmitted ref erence range: [...] See_Comment [Aut omated message] 670) The system bettermarks generated this result transmitted ref erence range: 1.56 - 6 .13 K/L. The refe rence range was not u sed to interpret this result as normal/abnor mal. # Lymphs (test code = 0.73 See_Comment L [Auto mated message] 414) The system bettermarks generated this result transmitted ref erence range: 1.18 - 3 .74 K/L. The refe rence range was not u sed to interpret this result as normal/abnor mal. # Monos (test code = 0.62 See_Comment H [Autom ated message] 415) The system bettermarks generated this result transmitted ref erence range: 0.24 - 0 .36 K/L. The refe rence range was not u sed to interpret this result as normal/abnor mal. # Eos (test code = 416) 0.24 See_Comment [Au tomated message] The system bettermarks generated this result transmitted ref erence range: 0.04 - 0 .36 K/L. The refe rence range was not u sed to interpret this result as normal/abnor mal. # Baso (test code = 417) 0.04 See_Comment [A utomated message] The system bettermarks generated this result transmitted ref erence range: 0.01 - 0 .08 K/L. The refe rence range was not u sed to interpret this result as normal/abnor mal. Immature 0 % 0-1 Granulocytes-Relative (test code = 2801) Lab Interpretation (test Abnormal code = 69665-2) [facility] W/PLT COUNT & AUTO [id number] 15:34:06 Test Item Value Reference Range Interpretation [...] PERCENT (BEAKER) (test code = 2801) POCT-GLUCOSE [id number] 12:42:57 Test Item Value Reference Range Interpretation Comments POC-GLUCOSE METER 216 mg/dL 70-110 H : TESTED A T [facility] (BEAKER) (test code = [place], 1538) [address]: Child Attendant/Techni kelle ID = [id number] for Kayla Emanuel Prepare Leuko-Red [id number] 10:49:00 Test Item Value Reference Range Interpretation Comments CROSSMATCH (test code = 2264) COMPATIBLE Unit ABO (test code = O Pos 5238991) UNIT NUMBER (test code = [id number] 934-0) Status (test code = 3178251) ISSUED Blood Bank Product (test code RED BLOOD CELLS = 2263) PRODUCT CODE (test code = V7517T14 933-2) [facility] [id number] 10:49:00 Test Item Value Reference Range Interpretation Comments CROSSMATCH (test code = 2264) COMPATIBLE Unit ABO (test code = O Pos 1531677) UNIT NUMBER (test code = [id number] 934-0) Status (test code = 1358271) ISSUED Blood Bank Product (test code RED BLOOD CELLS = 2263) PRODUCT CODE (test code = K4430X65 933-2) [facility] [id number] 10:49:00 Test Item Value Reference Range Interpretation Comments CROSSMATCH (test code = 2264) COMPATIBLE Unit ABO (test code = O Pos 1401173) UNIT NUMBER (test code = [id number] 934-0) Status (test code = 9287586) ISSUED Blood Bank Product (test code RED BLOOD CELLS = 2263) PRODUCT CODE (test code = J5592S67 933-2) [facility] [id number] 08:43:51 Test Item Value Reference Range Interpretation Comments POC-GLUCOSE METER 209 mg/dL 70-110 H : TESTED A T [facility] 6720 (BEAKER) (test code = [place], 1538) [address]: Child Attendant/Techni kelle ID = [id number] for Kayla Emanuel RAD, CHEST, 1 VIEW, NON [id number] 07:26:00Reason for exam:->post-opShould this be performed at the bedside?->Yes [facility] 1955 Sex: FFINAL [...] Cosme Verified Date/Time: 06/28/2021 07:26:22 BASIC METABOLIC [id number] 04:56:45 Test Item Value Reference Range Interpretation [...] S NOT APPLICABLE FOR DIALYSIS PATIEN TS. Child Attendant ID Bassam GAINES [id number] 04:48:49 Test Item Value Reference Range Interpretation Comments MAGNESIUM (BEAKER) 2.0 mg/dL 1.6-2.6 Specimen slightly (test code = 627) hemolyzed Child Attendant ID Bassam GAINES [id number] 04:48:49 Test Item Value Reference Range Interpretation Comments PHOSPHORUS (BEAKER) 2.5 mg/dL 2.3-4.7 Specimen slightly (test code = 604) hemolyzed Child Attendant NORAH GAINES LCBC (HEMOGRAM ONLY)2021-06-28 04:28:17 Test Item [...] WBC 0-0 (test code = 413) POCT-GLUCOSE [id number] 21:38:17 Test Item Value Reference Range Interpretation Comments POC-GLUCOSE METER 200 mg/dL 70-110 H : TESTED A T [facility] 6720 (BEAKER) (test code = [facility], 1538) [address]: Child Attendant/Techni kelle ID = [id number] for RO PAZ DANIELSGIO POCT-GLUCOSE [id number] 18:02:45 Test Item Value Reference Range Interpretation Comments POC-GLUCOSE METER 217 mg/dL 70-110 H : TESTED A T [facility] 6720 (BEAKER) (test code = [facility], 1538) 18153: Child Attendant/Techni kelle ID = [id number] for Ba rrera, Kayla POCT-GLUCOSE [id number] 15:14:18 Test Item Value Reference Range Interpretation Comments POC-GLUCOSE METER 229 mg/dL 70-110 H : TESTED A T [facility] 6720 (BEAKER) (test code = [facility], 1538) 78451: Child Attendant/Techni kelle ID = [id number] for Ba rrera, Kayla POCT-GLUCOSE [id number] 12:20:23 Test Item Value Reference Range Interpretation Comments POC-GLUCOSE METER 160 mg/dL 70-110 H : TESTED A T [facility] 6720 (BEAKER) (test code = [facility], 1538) 27702: Child Attendant/Techni kelle ID = [id number] for Ba rrera, Kayla SARS-CoV2/RT-PCR (Asymptomatic ONLY)2021-06-27 10:39:35 Test Item Value Reference Range Interpretation Comments SARS-COV2/RT-PCR Negative Not Detected, (test code = Negative, See 23558-2) external report for linked test SARS-COV-2 [facility] PERFORMING LAB (test code = 28548-2) BRANDI (test code = Negative result for [...] of the Act. Fact Sheet for Healthcare Providers:https://www.[employer] idel.com/sites/default/f radha/product/documents/F act_Sheet_HC_Providers_L vya_WMJF-GsX-4.pdf Fact Sheet for Healthcare Patients:https://www.ankur del.com/sites/default/fi les/product/documents/Fa ct_Sheet_Patients_Lyra_S ARS-CoV-2.pdf Performing Laboratory:[facility], [place] [address] [place], [place] [address]ARS-CoV2/RT-PCR (Asymptomatic ONLY)2021-06-27 10:39:35 Test Item Value Reference Range Interpretation Comments SARS-COV2/RT-PCR Negative Not Detected, (test code = Negative, See 00843-8) external report for linked test SARS-COV-2 [facility] ALICIA PERFORMING LAB (test code = 68128-1) BRANDI (test code = Negative result for [...] of the Act. Fact Sheet for Healthcare Providers:https://www.[employer] ideBioTeSys.Privepass/sites/default/f radha/product/documents/F act_Sheet_HC_Providers_L ifs_PTJV-UnG-6.pdf Fact Sheet for Healthcare Patients:https://www.S.[employer]. Safe[employer]Software.Privepass/sites/default/fi les/product/documents/Fa ct_Sheet_Patients_Lyra_S ARS-CoV-2.pdf Performing Laboratory:[facility] [place] [address] [facility] (As[facility]omatic ONLY)2021-06-27 10:39:35 Test Item Value Reference Range Interpretation Comments SARS-COV2/RT-PCR Negative Not Detected, (test code = Negative, See 22220-6) external report for linked test SARS-COV-2 [facility]ICIA PERFORMING LAB (test code = 40761-6) BRANDI (test code = Negative result for [...] of the Act. Fact Sheet for Healthcare Providers:https://www.LMN-1.Privepass/sites/default/f radha/product/documents/F act_Sheet_HC_Providers_L wgz_OXSH-YiU-1.pdf Fact Sheet for Healthcare Patients:https://www.S.N. Safe[employer]Software.com/sites/default/fi les/product/documents/Fa ct_Sheet_Patients_Ly_S ARS-CoV-2.pdf Performing Laboratory:[facility] [place] [address] [facility] (Asymptomatic ONLY)2021-06-27 10:39:35 Test Item Value Reference Range Interpretation Comments SARS-COV2/RT-PCR Negative Not Detected, (test code = Negative, See 43279-0) external report for linked test SARS-COV-2 [facility] ALICIA PERFORMING LAB (test code = 89312-8) BRANDI (test code = Negative result for [...] of the Act. Fact Sheet for Healthcare Providers:https://www.LMN-1.Privepass/sites/default/f radha/product/documents/F act_Sheet_HC_Providers_L kvn_CLMU-HtR-9.pdf Fact Sheet for Healthcare Patients:https://www.S.N. Safe[employer]Software.Privepass/sites/default/fi les/product/documents/Fa ct_Sheet_Patients_Ly_S ARS-CoV-2.pdf Performing Laboratory:[facility] [place] [address] [facility] (Asymptomatic ONLY)2021-06-27 10:39:35 Test Item Value Reference Range Interpretation Comments SARS-COV2/RT-PCR Negative Not Detected, (test code = Negative, See 36765-9) external report for linked test SARS-COV-2 [facility] PERFORMING LAB (test code = 95753-7) BRANDI (test code = Negative result for [...] of the Act. Fact Sheet for Healthcare Providers:https://www.[employer]/sites/default/f radha/product/documents/F act_Sheet_HC_Providers_L sez_XKAL-UqF-4.pdf Fact Sheet for Healthcare Patients:https://www.BandPage/sites/default/fi les/product/documents/Fa ct_Sheet_Patients_Lyra_S ARS-CoV-2.pdf Performing Laboratory:[facility] [place] [address] [facility] (Asymptomatic ONLY)2021-06-27 10:39:35 Test Item Value Reference Range Interpretation Comments SARS-COV2/RT-PCR Negative Not Detected, (test code = Negative, See 13299-8) external report for linked test SARS-COV-2 [facility] PERFORMING LAB (test code = 62351-1) BRANDI (test code = Negative result for [...] of the Act. Fact Sheet for Healthcare Providers:https://www.Ar[employer]/sites/default/f radha/product/documents/F act_Sheet_HC_Providers_L vvj_CFVI-SgE-6.pdf Fact Sheet for Healthcare Patients:https://www.BandPage/sites/default/fi les/product/documents/Fa ct_Sheet_Patients_Lyra_S ARS-CoV-2.pdf Performing Laboratory:[facility] [place] [address] [facility] (Asymptomatic ONLY)2021-06-27 10:39:35 Test Item Value Reference Range Interpretation Comments SARS-COV2/RT-PCR Negative Not Detected, (test code = Negative, See 16994-8) external report for linked test SARS-COV-2 [facility] PERFORMING LAB (test code = 06749-5) BRANDI (test code = Negative result for [...] of the Act. Fact Sheet for Healthcare Providers:https://www.Ar[employer]/sites/default/f radha/product/documents/F act_Sheet_HC_Providers_L gat_TVTZ-PcJ-1.pdf Fact Sheet for Healthcare Patients:https://www.BandPage/sites/default/fi les/product/documents/Fa ct_Sheet_Patients_Lyra_S ARS-CoV-2.pdf Performing Laboratory:[facility]OV[address]-PCR ([facility])2021-06-27 10:39:35 Test Item Value Reference Range Interpretation Comments SARS-COV2/RT-PCR (test Negative Not Detected, Negative, code = 8665408) See external report for linked test SARS-COV-2 PERFORMING LAB [facility] ALICIA (test code = 7207736) Negative result for this test determines that [...] of the Act.Fact Sheet for Healthcare Pro viders:https://www.[employer]/sites/default/files/product/documents/Fact_Sheet_H Q_Pctwemwfu_Rdow_ZZYU-BzM-1.pdfFact Sheet for Healthcare Patients:https://www.[employer]/sites/default/files/product/docum ents/Lgil_Pnvlm_Wektvdbv_Igew_LBNW-XjX-4.pdfPerforming Laboratory:[facility], [place] [address]VHRW-EVLAJAQ METER 2021-06-27 08:35:14 Test Item Value Reference Range Interpretation Comments POC-GLUCOSE METER 99 mg/dL 70-110 : TESTED A T [facility] 6720 ([place]) (test code = [facility]UD[facility] [place] [facility], 1538) [address]: Child Attendant/Techni kelle ID = [id number] for Huerta bamKayla RAD, CHEST, 1 VIEW, NON [id number] 08:17:00Reason for exam:->post-opShould this be performed at the bedside?->Yes [facility]Y : 1955 Sex: FFINAL REPORT Chest, one view HISTORY: Postoperative Comparison: 06/26/2021 Findings: Lungs: Mild bilateral interstitial opacities, likely pulmonary venous congestion. No significant change. Heart: Unchanged moderate cardiomegaly. Pleura: No pleural effusion or pneumothorax. Bones: Unremarkable. Lines/tubes: Unchanged in position. Signed: Erlin Carr MDReport Verified Date/Time: 06/27/2021 08:17:45 Reading Location: [address] Consult Reading Room BASIC METABOLIC [id number] 05:32:33 Test Item Value Reference Range Interpretation [...] S NOT APPLICABLE FOR DIALYSIS PATIEN TS. Child Attendant ID - HIEN [id number] 05:23:42 Test Item Value Reference Range Interpretation Comments PHOSPHORUS (BEAKER) (test code = 2.2 mg/dL 2.3-4.7 L 604) Child Attendant ID - HIEN [id number] 05:23:41 Test Item Value Reference Range Interpretation Comments MAGNESIUM (BEAKER) (test code = 1.8 mg/dL 1.6-2.6 627) Child Attendant ID - HIEN [id number] 05:19:04 Test Item Value Reference Range Interpretation Comments PTT (test code = 41575-4) 35.8 See_Comment [ Automated message] The system bettermarks generated this result transmitted ref erence range: 22.5 - 3 6.0 seconds. The re ference range was not u sed to interpret this result as normal/abnor mal. Lab Interpretation (test Normal code = 79963-7) [place] [id number] 05:19:04 Test Item Value Reference Range Interpretation Comments PTT (test code = 03303-1) 35.8 See_Comment [ Automated message] The system bettermarks generated this result transmitted ref erence range: 22.5 - 3 6.0 seconds. The re ference range was not u sed to interpret this result as normal/abnor mal. Lab Interpretation (test Normal code = 72758-0) [facility] Test Item Value Reference Range Interpretation Comments PTT (test code = 25421-6) 35.8 See_Comment [ Automated message] The system bettermarks generated this result transmitted ref erence range: 22.5 - 3 6.0 seconds. The re ference range was not u sed to interpret this result as normal/abnor mal. Lab Interpretation (test Normal code = 85905-1) [place] 29770022-03-26 05:19:04 Test Item Value Reference Range Interpretation Comments PTT (test code = 18560-2) 35.8 See_Comment [ Automated message] The system bettermarks generated this result transmitted ref erence range: 22.5 - 3 6.0 seconds. The re ference range was not u sed to interpret this result as normal/abnor mal. Lab Interpretation (test Normal code = 35670-6) [place] 29770022-03-26 05:19:04 Test Item Value Reference Range Interpretation Comments PTT (test code = 85181-3) 35.8 See_Comment [ Automated message] The system bettermarks generated this result transmitted ref erence range: 22.5 - 3 6.0 seconds. The re ference range was not u sed to interpret this result as normal/abnor mal. Lab Interpretation (test Normal code = 93582-6) [place] 29770022-03-26 05:19:04 Test Item Value Reference Range Interpretation Comments PTT (test code = 69509-8) 35.8 See_Comment [ Automated message] The system bettermarks generated this result transmitted ref erence range: 22.5 - 3 6.0 seconds. The re ference range was not u sed to interpret this result as normal/abnor mal. Lab Interpretation (test Normal code = 18435-8) [place] 29770022-03-26 05:19:04 Test Item Value Reference Range Interpretation Comments PTT (test code = 76672-2) 35.8 See_Comment [ Automated message] The system bettermarks generated this result transmitted ref erence range: 22.5 - 3 6.0 seconds. The re ference range was not u sed to interpret this result as normal/abnor mal. Lab Interpretation (test Normal code = 78002-6) [place] 29770022-03-26 05:19:04 Test Item Value Reference Range Interpretation Comments PTT (test code = 11681-7) 35.8 See_Comment [ Automated message] The system bettermarks generated this result transmitted ref erence range: 22.5 - 3 6.0 seconds. The re ference range was not u sed to interpret this result as normal/abnor mal. Lab Interpretation (test Normal code = 89021-1) [place] 29770022-03-26 05:19:04 Test Item Value Reference Range Interpretation Comments PTT (test code = 17414-2) 35.8 See_Comment [ Automated message] The system bettermarks generated this result transmitted ref erence range: 22.5 - 3 6.0 seconds. The re ference range was not u sed to interpret this result as normal/abnor mal. Lab Interpretation (test Normal code = 00658-3) [place] 29770022-03-26 05:19:04 Test Item Value Reference Range Interpretation Comments PTT (test code = 69161-6) 35.8 See_Comment [ Automated message] The system bettermarks generated this result transmitted ref erence range: 22.5 - 3 6.0 seconds. The re ference range was not u sed to interpret this result as normal/abnor mal. Lab Interpretation (test Normal code = 72205-7) [place] 29770022-03-26 05:19:04 Test Item Value Reference Range Interpretation Comments PTT (test code = 59037-4) 35.8 See_Comment [ Automated message] The system bettermarks generated this result transmitted ref erence range: 22.5 - 3 6.0 seconds. The re ference range was not u sed to interpret this result as normal/abnor mal. Lab Interpretation (test Normal code = 28939-5) [place] 29770022-03-26 05:19:04 Test Item Value Reference Range Interpretation Comments PTT (test code = 28398-5) 35.8 See_Comment [ Automated message] The system bettermarks generated this result transmitted ref erence range: 22.5 - 3 6.0 seconds. The re ference range was not u sed to interpret this result as normal/abnor mal. Lab Interpretation (test Normal code = 30880-3) [place] 29770022-03-26 05:19:04 Test Item Value Reference Range Interpretation Comments PTT (test code = 15266-0) 35.8 See_Comment [ Automated message] The system bettermarks generated this result transmitted ref erence range: 22.5 - 3 6.0 seconds. The re ference range was not u sed to interpret this result as normal/abnor mal. Lab Interpretation (test Normal code = 85309-3) [place] 29770022-03-26 05:19:04 Test Item Value Reference Range Interpretation Comments PTT (test code = 81714-6) 35.8 See_Comment [ Automated message] The system bettermarks generated this result transmitted ref erence range: 22.5 - 3 6.0 seconds. The re ference range was not u sed to interpret this result as normal/abnor mal. Lab Interpretation (test Normal code = 17165-1) [place] 29770022-03-26 05:19:04 Test Item Value Reference Range Interpretation Comments PTT (test code = 77658-0) 35.8 See_Comment [ Automated message] The system bettermarks generated this result transmitted ref erence range: 22.5 - 3 6.0 seconds. The re ference range was not u sed to interpret this result as normal/abnor mal. Lab Interpretation (test Normal code = 30118-5) [facility] Test Item Value Reference Range Interpretation Comments PTT (test code = 10207-1) 35.8 See_Comment [ Automated message] The system bettermarks generated this result transmitted ref erence range: 22.5 - 3 6.0 seconds. The re ference range was not u sed to interpret this result as normal/abnor mal. Lab Interpretation (test Normal code = 57022-6) [facility] Test Item Value Reference Range Interpretation Comments PTT (test code = 38948-1) 35.8 See_Comment [ Automated message] The system bettermarks generated this result transmitted ref erence range: 22.5 - 3 6.0 seconds. The re ference range was not u sed to interpret this result as normal/abnor mal. Lab Interpretation (test Normal code = 53863-2) [facility] Test Item Value Reference Range Interpretation Comments PARTIAL THROMBOPLASTIN TIME 35.8 seconds 22.5-36.0 (BEAKER) (test code = 760) Prothrombin time/EIJ3893-20-06 05:18:23 Test Item Value Reference Interpretation Comments [...] valves. Lab Interpretation Normal (test code = 44658-4) [facility]/[id number] 05:18:23 Test Item Value Reference Interpretation Comments [...] valves. Lab Interpretation Normal (test code = 90222-0) [facility]/[id number] 05:18:23 Test Item Value Reference Interpretation Comments [...] valves. Lab Interpretation Normal (test code = 22010-9) [facility]/[id number] 05:18:23 Test Item Value Reference Interpretation Comments [...] valves. Lab Interpretation Normal (test code = 45545-7) [facility]/[id number] 05:18:23 Test Item Value Reference Interpretation Comments [...] valves. Lab Interpretation Normal (test code = 30379-5) [facility]/[id number] 05:18:23 Test Item Value Reference Interpretation Comments [...] valves. Lab Interpretation Normal (test code = 07615-8) [facility]/[id number] 05:18:23 Test Item Value Reference Interpretation Comments Range Protime (test code = 13.9 See_Comment [Autom ated 5902-2) message] The system which generated this result transmitted reference range : 11.9 - 14.2 seconds. The reference range was not used to interpret this result as normal/abnormal . INR (test code = 1.09 See_Comment [Automated [employer]-6) message] The system which generated this result [...] valves. Lab Interpretation Normal (test code = 79726-0) [facility]/[id number] 05:18:23 Test Item Value Reference Interpretation Comments [...] valves. Lab Interpretation Normal (test code = 49416-3) [facility]/[id number] 05:18:23 Test Item Value Reference Interpretation Comments [...] valves. Lab Interpretation Normal (test code = 00798-8) [facility]/[id number] 05:18:23 Test Item Value Reference Interpretation Comments [...] valves. Lab Interpretation Normal (test code = 28324-5) [facility]Prothrom[facility]/SDL5327-04-06 05:18:23 Test Item Value Reference Interpretation Comments [...] valves. Lab Interpretation Normal (test code = 92451-0) [facility]Proth[facility] time/[id number] 05:18:23 Test Item Value Reference Interpretation Comments [...] valves. Lab Interpretation Normal (test code = 98207-4) [facility] CenterProthrom[facility] time/[id number] 05:18:23 Test Item Value Reference Interpretation Comments [...] valves. Lab Interpretation Normal (test code = 83704-4) [facility]Pro[facility] time/[id number] 05:18:23 Test Item Value Reference Interpretation Comments [...] valves. Lab Interpretation Normal (test code = 33850-4) [facility] time/[id number] 05:18:23 Test Item Value Reference Interpretation Comments [...] valves. Lab Interpretation Normal (test code = 91716-6) [facility]Prothrom[facility] time/[id number] 05:18:23 Test Item Value Reference Interpretation Comments [...] valves. Lab Interpretation Normal (test code = 03999-3) [facility] CenterProthrom[facility] time/[id number] 05:18:23 Test Item Value Reference Interpretation Comments [...] valves. Lab Interpretation Normal (test code = 02899-7) [facility] CenterPROTHR[facility]/[id number] 05:18:23 Test Item Value Reference Range Interpretation Comments PROTIME (BEAKER) 13.9 seconds 11.9-14.2 (test code = 759) INR (BEAKER) (test 1.09 See_Comment [Automat ed message] code = 370) The system bettermarks generated this result transmitted ref erence range: [...] WBC 0-0 (test code = 413) POCT-GLUCOSE BLKMP5023-30-20 21:11:10 Test Item Value Reference Range Interpretation Comments POC-GLUCOSE METER 158 mg/dL 70-110 H : TESTED A T [facility] 6720 (BEAKER) (test code = [place], 1538) [address]: Child Attendant/Techni kelle ID = [id number] for Re yes, Sairy POCT-GLUCOSE WPGJQ7431-73-38 19:06:56 Test Item Value Reference Range Interpretation Comments POC-GLUCOSE METER 113 mg/dL 70-110 H : TESTED A T [facility] 6720 (BEAKER) (test code [facility], = 1538) [address]: Child Attendant/Techni kelle ID = [id number] for Sutt on, Fadi Hemoglobin and ymigvmpozh0638-82-78 11:43:32 Test Item Value Reference Range Interpretation [...] = 4544-3) BRANDI (test code = BRANDI) Child Attendant ID - [id number] Lab Interpretation Abnormal (test code = 84745-3) [facility] Center[facility] and vsthjyiokz0829-97-30 11:43:32 Test Item Value Reference Range Interpretation [...] = 4544-3) BRANDI (test code = BRANDI) Child Attendant ID - [id number] Lab Interpretation Abnormal (test code = 57615-2) [facility] CenterH[facility] and pkloblrfih9590-99-82 11:43:32 Test Item Value Reference Range Interpretation [...] = 4544-3) BRANDI (test code = BRANDI) Child Attendant ID - [id number] Lab Interpretation Abnormal (test code = 20607-6) [facility] CenterH[facility] and hhnhaeuyim8961-02-94 11:43:32 Test Item Value Reference Range Interpretation [...] = 4544-3) BRANDI (test code = BRANDI) Child Attendant ID - [id number] Lab Interpretation Abnormal (test code = 22154-8) [facility] CenterH[facility] and ctgebzeztn6651-96-04 11:43:32 Test Item Value Reference Range Interpretation [...] = 4544-3) BRANDI (test code = BRANDI) Child Attendant ID - [id number] Lab Interpretation Abnormal (test code = 64782-5) [facility] CenterH[facility] and sdpzqwqugw2311-10-19 11:43:32 Test Item Value Reference Range Interpretation [...] = 4544-3) BRANDI (test code = BRANDI) Child Attendant ID - [id number] Lab Interpretation Abnormal (test code = 05393-9) [facility] CenterH[facility] and edwxuacleu0596-22-96 11:43:32 Test Item Value Reference Range Interpretation [...] = 4544-3) BRANDI (test code = BRANDI) Child Attendant ID - [id number] Lab Interpretation Abnormal (test code = 18462-6) [facility] CenterH[facility] and fsncvzdmbt1656-06-18 11:43:32 Test Item Value Reference Range Interpretation [...] = 4544-3) BRANDI (test code = BRANDI) Child Attendant ID - [id number] Lab Interpretation Abnormal (test code = 89605-9) [facility] CenterH[facility] and gexsvlpwdr4788-03-27 11:43:32 Test Item Value Reference Range Interpretation [...] = 4544-3) BRANDI (test code = BRANDI) Child Attendant ID - 6000 Lab Interpretation Abnormal (test code = 73750-7) [facility] CenterH[facility] and glxfowhpia7495-88-97 11:43:32 Test Item Value Reference Range Interpretation [...] = 4544-3) BRANDI (test code = BRANDI) Child Attendant ID - [id number] Lab Interpretation Abnormal (test code = 90416-2) [facility] CenterH[facility] and wzyyifagmw8486-03-39 11:43:32 Test Item Value Reference Range Interpretation [...] = 4544-3) BRANDI (test code = BRANDI) Child Attendant ID - [id number] Lab Interpretation Abnormal (test code = 42019-0) [facility] CenterH[facility] and fipfzrqsmb1343-20-75 11:43:32 Test Item Value Reference Range Interpretation [...] = 4544-3) BRANDI (test code = BRANDI) Child Attendant ID - 6000 Lab Interpretation Abnormal (test code = 41670-6) [facility] CenterH[facility] and tcmtwarunf5010-96-57 11:43:32 Test Item Value Reference Range Interpretation [...] = 4544-3) BRANDI (test code = BRANDI) Child Attendant ID - [id number] Lab Interpretation Abnormal (test code = 09664-1) [facility] CenterH[facility] and wiqyqucxrf1425-66-16 11:43:32 Test Item Value Reference Range Interpretation [...] = 4544-3) BRANDI (test code = BRANDI) Child Attendant ID - [id number] Lab Interpretation Abnormal (test code = 07016-3) [facility] CenterH[facility] and vitdlkjobe5726-44-51 11:43:32 Test Item Value Reference Range Interpretation [...] = 4544-3) BRANDI (test code = BRANDI) Child Attendant ID - 6000 Lab Interpretation Abnormal (test code = 97206-8) [facility] CenterH[facility] and wfrimmqokh2646-87-24 11:43:32 Test Item Value Reference Range Interpretation [...] = 4544-3) BRANDI (test code = BRANDI) Child Attendant ID - 6000 Lab Interpretation Abnormal (test code = 98673-3) [facility] CenterH[facility] and ndmlmlganf1955-80-22 11:43:32 Test Item Value Reference Range Interpretation [...] = 4544-3) BRANDI (test code = BRANDI) Child Attendant ID - 6000 Lab Interpretation Abnormal (test code = 89436-1) [facility] CenterHem[facility] and wmmvigyyiy3416-83-99 11:43:32 Test Item Value Reference Range Interpretation [...] = 4544-3) BRANDI (test code = BRANDI) Child Attendant ID - 6000 Lab Interpretation Abnormal (test code = 86986-5) [facility] CenterHEMOGLOBIN AND CIZFQCCJFV8190-43-74 11:43:32 Test Item Value Reference Range Interpretation Comments HEMOGLOBIN (BEAKER) (test code = 8.5 GM/DL 11.2-15.7 L 410) HEMATOCRIT (BEAKER) (test code = 26.8 % 34.1-44.9 L 411) Child Attendant ID - 6000POC-Glucose eyzob3316-15-32 11:26:36 Test Item Value Reference Range Interpretation Comments POC-Glucose Meter (test 126 mg/dL 70-110 H : TE STED AT [facility] code = 1538) [address] [facility], [address]70 30: Child Attendant/Techni kelle ID = [id number] for Ector (contract)Meeta Lab Interpretation (test Abnormal code = 57008-5) [facility] CenterPOCT-GLUCOSE QEMYG4667-18-04 11:26:36 Test Item Value Reference Range Interpretation Comments POC-GLUCOSE METER 126 mg/dL 70-110 H : TESTED A T [facility] 6720 (BEAKER) (test code = YUDY [place] [facility], 1538) [address]: Child Attendant/Techni kelle ID = [id number] for Brando wayne (contract)Marilee POCT-GLUCOSE SUIRI2849-12-24 09:38:49 Test Item Value Reference Range Interpretation Comments POC-GLUCOSE METER 139 mg/dL 70-110 H : TESTED A T [facility] 6720 (BEAKER) (test code = [facility], 1538) [address]: Child Attendant/Techni kelle ID = [id number] for SWEETIE GASPAR, TUNNELED CATHETER LUAEYBHEE4196-15-05 08:44:00Reason for Central Line/PICC?->> 21 days of IV infusionReason for exam:->needs antibiotics > 10 days, ESRD, Nephrology does not approve PICC or midline. [facility] 1955 Sex: [...] MDReport Verified Date/Time: 06/26/2021 08:44:45 Reading Location: [place] [address] Angio Body Reading Room RAD, CHEST, 1 VIEW, NON [id number] 08:08:00Reason for exam:->post-opShould this be performed at the bedside?->Yes [facility] : 1955 Sex: [...] MDReport Verified Date/Time: 06/26/2021 08:08:37 Reading Location: [facility] Radiology Reading Room Prepare Leuko-Red EKG0492-65-05 06:01:00 Test Item Value Reference Range Interpretation Comments CROSSMATCH (test code = 2264) COMPATIBLE Unit ABO (test code = O Pos 4734659) UNIT NUMBER (test code = [id number] 934-0) Status (test code = 5237928) ISSUED Blood Bank Product (test code RED BLOOD CELLS = 2263) PRODUCT CODE (test code = E6133D61 933-2) [facility] Center[facility] Leuko-Red [id number] 06:01:00 Test Item Value Reference Range Interpretation Comments CROSSMATCH (test code = 2264) COMPATIBLE Unit ABO (test code = O Pos 4163887) UNIT NUMBER (test code = [id number] 934-0) Status (test code = 7191347) ISSUED Blood Bank Product (test code RED BLOOD CELLS = 2263) PRODUCT CODE (test code = F3747T98 933-2) [facility] Metabolic Kxoas6896-07-46 05:17:06 Test Item Value Reference Range Interpretation Comments Sodium (test code = 139 meq/L 714-722 6839-2) Potassium (test code = 3.7 meq/L 3.5-5.1 2823-3) Chloride (test code = 104 meq/L 98-107 2075-0) CO2 (test code = 23 meq/L -2027-12) BUN (test code = 36 mg/dL 7-21 H 3094-0) Creatinine (test code 5.14 mg/dL 0.57-1.25 H = 2160-0) Glucose (test code = 170 mg/dL 70-105 H 2345-7) Calcium (test code = 8.2 mg/dL 8.4-10.2 L 92599-2) EGFR (test code = 8 mL/min/1.73 [place] [address]-9) NOT ACCURATE CREATININE CLEARANCE IN PREDICTING GLOMERULAR FILTRATION RATE . ESTIMATED GFR I S NOT APPLICABLE FOR DIALYSIS PATIENTS. BRANDI (test code = BRANDI) Child Attendant ID - RAKAN W Lab Interpretation Abnormal (test code = 26037-0) [facility] Metabolic Vpvtg7575-78-89 05:17:06 Test Item Value Reference Range Interpretation Comments Sodium (test code = 139 meq/L 480-670 3619-2) Potassium (test code = 3.7 meq/L 3.5-5.1 2823-3) Chloride (test code = 104 meq/L 98-107 5-0) CO2 (test code = 23 meq/L -29 9) BUN (test code = 36 mg/dL 7-21 H 3094-0) Creatinine (test code 5.14 mg/dL 0.57-1.25 H = 2160-0) Glucose (test code = 170 mg/dL 70-105 H 2345-7) Calcium (test code = 8.2 mg/dL 8.4-10.2 L 57236-2) EGFR (test code = 8 mL/min/1.73 [place] [address]-1) NOT ACCURATE CREATININE CLEARANCE IN PREDICTING GLOMERULAR FILTRATION RATE . ESTIMATED GFR I S NOT APPLICABLE FOR DIALYSIS PATIENTS. BRANDI (test code = BRANDI) Child Attendant ID Bassam KAURNA W Lab Interpretation Abnormal (test code = 08543-5) [facility] CenterBASIC METABOLIC [id number] 05:17:06 Test Item Value Reference Range Interpretation [...] S NOT APPLICABLE FOR DIALYSIS PATIEN TS. Child Attendant ID - RAKAN TUegetblhvl6343-24-75 05:00:22 Test Item Value Reference Range Interpretation Comments Phosphorus (test code = 3.7 mg/dL 2.3-4.7 2777-1) BRANDI (test code = BRANDI) Child Attendant ID Bassam RAKAN W Lab Interpretation (test Normal code = 80718-0) [facility] CenterPhosphorus[facility] 05:00:22 Test Item Value Reference Range Interpretation Comments Phosphorus (test code = 3.7 mg/dL 2.3-4.7 2777-1) BRANDI (test code = BRANDI) Child Attendant ID - RAKAN W Lab Interpretation (test Normal code = 12686-7) [facility] CenterPHOSPHORUS2022-03-25 05:00:22 Test Item Value Reference Range Interpretation Comments PHOSPHORUS (BEAKER) (test code = 3.7 mg/dL 2.3-4.7 604) Child Attendant ID - RAKAN ZThailguql5875-11-07 05:00:21 Test Item Value Reference Range Interpretation Comments Magnesium (test code = 2.2 mg/dL 1.6-2.6 67732-4) BRANDI (test code = BRANDI) Child Attendant ID - RAKAN W Lab Interpretation (test Normal code = 15181-3) [facility] CenterMagnesium2022-[facility]-25 05:00:21 Test Item Value Reference Range Interpretation Comments Magnesium (test code = 2.2 mg/dL 1.6-2.6 65061-1) BRANDI (test code = BRANDI) Child Attendant ID - RAKAN W Lab Interpretation (test Normal code = 67394-7) [facility] 05:00:21 Test Item Value Reference Range Interpretation Comments MAGNESIUM (BEAKER) (test code = 2.2 mg/dL 1.6-2.6 627) Child Attendant ID - RAKAN LbQGS0083-73-10 04:21:04 Test Item Value Reference Range Interpretation Comments PTT (test code = 73984-8) 35.7 See_Comment [ Automated message] The system bettermarks generated this result transmitted ref erence range: 22.5 - 3 6.0 seconds. The re ference range was not u sed to interpret this result as normal/abnor mal. Lab Interpretation (test Normal code = 14332-3) [facility] Test Item Value Reference Range Interpretation Comments PTT (test code = 06304-6) 35.7 See_Comment [ Automated message] The system bettermarks generated this result transmitted ref erence range: 22.5 - 3 6.0 seconds. The re ference range was not u sed to interpret this result as normal/abnor mal. Lab Interpretation (test Normal code = 99190-4) [facility] 04:[facility] Test Item Value Reference Range Interpretation Comments PARTIAL THROMBOPLASTIN TIME 35.7 seconds 22.5-36.0 (BEAKER) (test code = 760) Prothrombin time/KEC7398-75-86 04:20:24 Test Item Value Reference Interpretation Comments Range Protime (test code = 14.0 See_Comment [Autom ated 5902-2) message] The system which generated this result transmitted reference range : 11.9 - 14.2 seconds. The reference range was not used to interpret this result as normal/abnormal . INR (test code = 1.10 See_Comment [Automated 2671-6) message] The system which generated this result [...] valves. Lab Interpretation Normal (test code = 92432-5) [facility] CenterProthrombin time/[id number] 04:20:24 Test Item Value Reference Interpretation Comments Range Protime (test code = 14.0 See_Comment [Autom ated 5902-2) message] The system which generated this result transmitted reference range : 11.9 - 14.2 seconds. The reference range was not used to interpret this result as normal/abnormal . INR (test code = 1.10 See_Comment [Automated 7751-6) message] The system which generated this result [...] valves. Lab Interpretation Normal (test code = 57161-7) [facility] CenterPROTHROMBIN TIME/[id number] 04:20:24 Test Item Value Reference Range Interpretation Comments PROTIME (BEAKER) 14.0 seconds 11.9-14.2 (test code = 759) INR (BEAKER) (test 1.10 See_Comment [Automat ed message] code = 370) The system bettermarks generated this result transmitted ref erence range: [...] 4.0 See_Comment [A utomated message] The system bettermarks generated this result transmitted ref erence range: 3.5 - 10 .5 K/L. The refe rence range was not u sed to interpret this result as normal/abnor mal. RBC (test code = 789-8) 2.54 See_Comment L [Au tomated message] The system bettermarks generated this result transmitted ref erence range: 3.93 - 5 .22 M/L. The refe rence range was not u sed to interpret this result as normal/abnor mal. MCHC (test code = 786-4) 31.2 See_Comment L [A utomated message] The system bettermarks generated this result transmitted ref erence range: [...] L [Aut omated message] 777-3) The system bettermarks generated this result transmitted ref erence range: 150 - 45 0 K/CU MM. The referen ce range was not u sed to interpret this result as normal/abnor mal. MPV (test code = 10.7 fL 9.4-12.3 17718-5) nRBC (test code = 413) 0 See_Comment [Aut omated message] The system bettermarks generated this result transmitted ref erence range: 0 - 0 /1 00 WBC. The refere nce range was not u sed to interpret this result as normal/abnor mal. Lab Interpretation (test Abnormal code = 87241-5) [facility] (Hemogram only)2021-06-26 04:04:58 Test Item Value Reference Range Interpretation Comments WBC (test code = 6690-2) 4.0 See_Comment [A utomated message] The system bettermarks generated this result transmitted ref erence range: 3.5 - 10 .5 K/L. The refe rence range was not u sed to interpret this result as normal/abnor mal. RBC (test code = 789-8) 2.54 See_Comment L [Au tomated message] The system bettermarks generated this result transmitted ref erence range: 3.93 - 5 .22 M/L. The refe rence range was not u sed to interpret this result as normal/abnor mal. MCHC (test code = 786-4) 31.2 See_Comment L [A utomated message] The system bettermarks generated this result transmitted ref erence range: [...] L [Aut omated message] 777-3) The system bettermarks generated this result transmitted ref erence range: 150 - 45 0 K/CU MM. The referen ce range was not u sed to interpret this result as normal/abnor mal. MPV (test code = 10.7 fL 9.4-12.3 70540-8) nRBC (test code = 413) 0 See_Comment [Aut omated message] The system bettermarks generated this result transmitted ref erence range: 0 - 0 /1 00 WBC. The refere nce range was not u sed to interpret this result as normal/abnor mal. Lab Interpretation (test Abnormal code = 93436-2) [facility] (HEMOGRAM ONLY)2021-06-26 04:04:58 Test Item Value [...] WBC 0-0 (test code = 413) POC-Glucose mkbma8619-54-61 21:57:30 Test Item Value Reference Range Interpretation Comments POC-Glucose Meter (test 204 mg/dL 70-110 H : TE STED AT [facility] code = 1538) [address] [facility] [place], [address]70 30: Child Attendant/Techni kelle ID = [id number] for Estela Cancinoradha Lab Interpretation (test Abnormal code = 21150-3) [facility] CenterPOCT[facility]UCOSE [id number] 21:57:30 Test Item Value Reference Range Interpretation Comments POC-GLUCOSE METER 204 mg/dL 70-110 H : TESTED A T [facility] 6720 (BEAKER) (test code = YUDY V[place] [facility], 1538) [address]: Child Attendant/Techni kelle ID = [id number] for Ad ams, Kimetra Type and screen, automated ([facility])2021-06-25 19:44:00 Test Item Value Reference Range Interpretation Comments ABO/RH AUTOMATED (BEAKER) (test O POSITIVE code = 2260) Ab Scrn (test code = 890-4) [facility]2021-06-25 19:44:00 Test Item Value Reference Range Interpretation Comments ABO/RH AUTOMATED (BEAKER) (test O POSITIVE code = 2260) Ab Scrn (test code = 890-4) [facility]2021-06-25 19:44:00 Test Item Value Reference Range Interpretation Comments ABO/RH AUTOMATED (BEAKER) (test O POSITIVE code = 2260) Ab Scrn (test code = 890-4) [facility]IVE [facility]2021-06-25 19:44:00 Test Item Value Reference Range Interpretation Comments ABO/RH AUTOMATED (BEAKER) (test O POSITIVE code = 2260) Ab Scrn (test code = 890-4) [facility]2021-06-25 19:44:00 Test Item Value Reference Range Interpretation Comments ABO/RH AUTOMATED (BEAKER) (test O POSITIVE code = 2260) Ab Scrn (test code = 890-4) [facility]2021-06-25 19:44:00 Test Item Value Reference Range Interpretation Comments ABO/RH AUTOMATED (BEAKER) (test O POSITIVE code = 2260) Ab Scrn (test code = 890-4) [facility]2021-06-25 19:44:00 Test Item Value Reference Range Interpretation Comments ABO/RH AUTOMATED (BEAKER) (test O POSITIVE code = 2260) Ab Scrn (test code = 890-4) [facility]2021-06-25 19:44:00 Test Item Value Reference Range Interpretation Comments ABO/RH AUTOMATED (BEAKER) (test O POSITIVE code = 2260) Ab Scrn (test code = 890-4) [facility]2021-06-25 19:44:00 Test Item Value Reference Range Interpretation Comments ABO/RH AUTOMATED (BEAKER) (test O POSITIVE code = 2260) Ab Scrn (test code = 890-4) [facility]2021-06-25 19:44:00 Test Item Value Reference Range Interpretation Comments ABO/RH AUTOMATED (BEAKER) (test O POSITIVE code = 2260) Ab Scrn (test code = 890-4) [facility]2021-06-25 19:44:00 Test Item Value Reference Range Interpretation Comments ABO/RH AUTOMATED (BEAKER) (test O POSITIVE code = 2260) Ab Scrn (test code = 890-4) [facility]2021-06-25 19:44:00 Test Item Value Reference Range Interpretation Comments ABO/RH AUTOMATED (BEAKER) (test O POSITIVE code = 2260) Ab Scrn (test code = 890-4) [facility]IVE [facility]2021-06-25 19:44:00 Test Item Value Reference Range Interpretation Comments ABO/RH AUTOMATED (BEAKER) (test O POSITIVE code = 2260) Ab Scrn (test code = 890-4) [facility]2021-06-25 19:44:00 Test Item Value Reference Range Interpretation Comments ABO/RH AUTOMATED (BEAKER) (test O POSITIVE code = 2260) Ab Scrn (test code = 890-4) [facility]IVE [facility]2021-06-25 19:44:00 Test Item Value Reference Range Interpretation Comments ABO/RH AUTOMATED (BEAKER) (test O POSITIVE code = 2260) Ab Scrn (test code = 890-4) [facility]IVE [facility]2021-06-25 19:44:00 Test Item Value Reference Range Interpretation Comments ABO/RH AUTOMATED (BEAKER) (test O POSITIVE code = 2260) Ab Scrn (test code = 890-4) [facility]2021-06-25 19:44:00 Test Item Value Reference Range Interpretation Comments ABO/RH AUTOMATED (BEAKER) (test O POSITIVE code = 2260) Ab Scrn (test code = 890-4) [facility]IVE [facility]2021-06-25 19:44:00 Test Item Value Reference Range Interpretation Comments ABO/RH AUTOMATED (BEAKER) (test O POSITIVE code = 2260) Ab Scrn (test code = 890-4) [facility]IVE [facility] ([facility])2021-06-25 19:44:00 Test Item Value Reference Range Interpretation Comments ABO/RH AUTOMATED (BEAKER) (test O POSITIVE code = 2260) Ab Scrn (test code = 890-4) NEGATIVE [facility] CenterPOCT-GLUCOSE [id number] 11:31:12 Test Item Value Reference Range Interpretation Comments POC-GLUCOSE METER 130 mg/dL 70-110 H [facility] ([facility] (test code = [place], 1538) [address]: Child Attendant/Techni kelle ID = [id number] for PH EN-[place] (V), INES RAD, CHEST, 1 VIEW, NON [id number] 09:04:00Reason for exam:->post-opShould this be performed at the bedside?->Yes [facility] LIND[facility]Y : 1955 Sex: FFINAL REPORT Chest AP portable Comparison exam: 06/24/2021 History provided: Postop evaluation Heart size magnified by projection. Lungs grossly free of acute disease and vascularity normal. Signed: Wero Alvarez Verified Date/Time: 06/25/2021 09:04:07 [facility] 1.310.12 BASIC METABOLIC [id number] 03:58:40 Test Item Value Reference Range Interpretation [...] S NOT APPLICABLE FOR DIALYSIS PATIEN TS. Child Attendant ID - [id number] 03:40:57 Test Item Value Reference Range Interpretation Comments PARTIAL THROMBOPLASTIN TIME 46.7 seconds 22.5-36.0 H (BEAKER) (test code = 760) PROTHROMBIN TIME/[id number] 03:39:54 Test Item Value Reference Range Interpretation Comments PROTIME (BEAKER) 13.6 seconds 11.9-14.2 (test code = 759) INR (BEAKER) (test 1.05 See_Comment [Automat ed message] code = 370) The system bettermarks generated this result transmitted ref erence range: <=5.90. The reference range was not used to int erpret this result as normal/abnormal . RECOMMENDED COUMADIN/WARFARIN INR THERAPY RANGESSTANDARD DOSE: 2.0 - 3.0 Includes: PROPHYLAXIS for venous thrombosis, systemic embolization; TREATMENT for venous thrombosis and/or pulmonary embolus.HIGH RISK: Target INR is 2.5-3.5 for patients with mechanical heart valves.[id number] 03:34:10 Test Item Value Reference Range Interpretation Comments PHOSPHORUS (BEAKER) (test code = 3.8 mg/dL 2.3-4.7 604) Child Attendant ID - [id number] 03:34:09 Test Item Value Reference Range Interpretation Comments MAGNESIUM (BEAKER) (test code = 2.3 mg/dL 1.6-2.6 627) Child Attendant ID - [id number] (HEMOGRAM ONLY)2021-06-25 03:11:29 Test [...] WBC 0-0 (test code = 413) POCT-GLUCOSE [id number] 22:14:10 Test Item Value Reference Range Interpretation Comments POC-GLUCOSE METER 185 mg/dL 70-110 H : TESTED A T [facility] 6720 (BEAKER) (test code = [place], 1538) [id number]: Child Attendant/Techni kelle ID = [id number] for En Sheryl cordero RAD, ABDOMEN/KUB, 1 VIEW [id number] 19:49:00Reason for exam:->concern for ileusShould this be performed at the bedside?->Yes [facility] MONTOYA : 1955 Sex: FFINAL REPORT Abdomen dated 06/24/2021 Comment:Abdomen was examined in the supine and erect position. There is paucity of air in the small and large bowel. No mass, pathological calcification, or free air is present. Impression: Nonspecific gas pattern. Signed: Andrew Palmer MDReport Verified Date/Time: 06/24/2021 19:49:12 CT, CTA CORONARY, W/ YOEL [id number] 16:36:00 [facility] : 1955 Sex: FAddendum BeginsREPORT STATUS:A Impression: Mildly nodular appearance of the liver margins. Please correlate with underlying liver function tests to exclude chronic liver disease. No abnormally enhancing lesions in the liver parenchyma.Low-density lesion in the right lobe of the thyroid gland. Recommend dedicated thyroid ultrasound for further evaluation outpatient setting.Other findings as mentioned in the job order clerk report.No additional significant nonvascular findings identified. Signed: RaymondLise benjamin MDReport Verified Date/Time: 06/24/2021 16:36:13 Reading Location: [address] Radiology Reading RoomAddendum EndsFINAL REPORT CT [...] (< 1mm) were obtained. Please refer to [facility] regarding the medication administered for this [...] erformed. Coronary calcification was analyzed using the AlchemyAPI system software. These are the results of [...] to the RCA is identified. Regarding the [place] coronary arteries, diffuse calcification identified the proximal LCx making accurate as sessment limited. 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 NON-VASCULAR: A 1.2 cm hypodensity is identified in the right thyroid lobe at image 7. An addendum will be dictated thereafter by Drilling Supervisor Radiologist if dedicated thyroid ultrasound scan is [...] An addendum will be dictated by the Drilling Supervisor Radiologist regarding the nonvascular findings. THE REPORT WILL ONLY BE CONSIDERED COMPLETE AFTER THE ADDENDUM HAS BEEN DICTATED. Signed: Dung Fletcherort Verified Date/Time: 06/23/2021 08:29:48 POCT-GLUCOSE [id number] 16:19:22 Test Item Value Reference Range Interpretation Comments POC-GLUCOSE METER 108 mg/dL 70-110 : TESTED A T [facility] (test code = [place]UDY [place] [facility], 1538) [address]: Child Attendant/Techni kelle ID = [id number] for Aditya brewer (contract), [facility] Tissue [id number] 15:29:08 Test Item Value Reference Range Interpretation Comments Case Report (test code Surgical Pathology = 104) Report Case: [id number] Authorizing Provider: Logan Russo MD Collected: 06/18/2021 11:41 AM Ordering Location: [facility] Received: 06/19/2021 03:44 PM PERIOPERATIVE SERVICES Pathologist: Tom Paige MD Specimen: Mass, MITRAL VALVE MASS- for MICROBIOLOGY then pls send to Pathology DIAGNOSIS (test code = [id number] 3220) uZzEwMzNcZnRuYmpcdWMxIH tccnRmMVxlcGljOTYwMVxhb bIiCFBsfPRnJ9IsdlnrCVaf HD0bIE0xwMnrrJVylMSfJDJ wGhSoq0gej834hBYqj1yaNS YZvylsaHc9xMucK58un8S3U doeC42wjVXqESV1KNJpZGZf tREgXGCzBQT5TZSeyONzA6m jPDXwAQ3isfsaOCrpSXkwBJ IjtKJ6WTMxwFIkB5WcHMXwM HebMKIswkz9IrVnHm1xfSFq eTcyMFxwYXJkXHBsYWluXGZ gSdTyDQ1hEDGNJyIuSF3ZWS JBTCBWQUxWRSwgREVCUklER K2IXoUmTU9PPTSJFLJPMklx cGFyIEZJQlJJTiwgQUNVVEU dEZ1NRLTMNKIGW3OURGBFJ2 QMP1GTNMLAVvNcN7EGV8dHG HGWIVwNRp7odFPtOQCISRCF GFchR2UEUJ4JIRPTHtPZBuU XJ4EFR7QMFZ3TA3CQSXWTBz NOPF2PDP7KQHLLNJHZVuKFN OXNJxPVK9bDO1gwZFoxRCMu Q14PAkFTVUAWA00rW0kBLWZ KTPBJL8SUY7wXO3kKAXpzR0 ENMBuYEhKFXbAMDVIQTS6ZI iWGDN1pFHQxtt91WMK6BqQm z1C9FFK8JDXaKDEzz3gwMOQ mbGFuZzEwMzNcZnRuYmpcdW TcHHZbCuBhi0zxp188tRAcg 9dlTAAaEtT7jDVwHKWcqYAl A816IFWeYZtdm2pfb5BoWMW vjTDne2K0EORRznpnpDs5eW csB83ky7I4FhghW1yoPKRnZ UXxF6BlRU7rSBXiDjf6MQB1 OVF2EVBuFBUpB5BzVF1nSTX jgXMnAHr8q2mmkXsdSNKbTY M6n2fbFWvepkJwDW9nfn3cj Lu8v8fyvdWlEVQnYYJojDWS TKBfB9QsnBosWe0ylWy7nEj jOxynGVG4Wzk8HJ7tsr87nt l2kUsoJNVpnqfhChY0WIihZ YTwfaybFNt9XZjcGHUqyEH6 KCAfzAIfL3QjAZQoZD1lpae 1JGY8WOalGKXvFdK9SIVgcC AoXXUkiDgcWYsao093CPS0B sGpLY3zW8Rnr9I1yC6yeQSz MBDyoMLsUiJuFLLism8hwNJ fNIyee5SyOEG2boK7iRNdaE IkZAGmAlH3HChtFW0xli52P CWyBSP2li5ayVPrzFywooPf dGHkGQugX3WhYSXmk472FUI tN1GaGBYre9T2htYiJxPzGN PolQY0ubJ2KENiSC8hlxovi 0goEXjoWApxECLscvI6azP9 IGGxvKUwW3DunT5yOSZoZE6 xrjoij6enEKE9UUreQEQsNU G4JfHyCSIhz6Yklqo4HsVlq 0ZaiIUhXRolS85tu135NOPa uzQrD6wytTItmhgbiCZgdsj mGOqqjeX5EQZoOPlstcytJD NaYGldR8gbLyBuHKHcxYfmL Teae2SvDYCtGZPjDkXaaRFq KCLjSsu8BDIdbGTiKFNwPgO vZ9lpyqoqBoQAEVBqs8soV7 jruDOPpGVgQ2QsURuohrZgT TbbQNdgSdHuHQOoKW76JNW9 IIXpaj63 CPT Code(s) (test code y4fiiHMzIQKvnCY3CxBpDNA = 3357) vs1nwa4PiaKDlgNXqFUhplU CdblBtke63hHI0sM73WV8jG JZdFsQ2ARHnyiG2Wan0WZYg TFYxmCCtC141o7das1cgzwQ bhNK2iRyqUJDfrywnCyP4GD hzKZTuxsdeXXt4CZgxQWEhg NA2SSVisUNgU5TxAZCrCZ8z gej9VSC9PWxgACBbAxK1IWW dhWYsRVDxpOlnKVzfp099MN V0DhWbUIQoogOutDbohN3wI dQaFFT4NSAfHMcaBVwlYPDO I9rfPOF5 CLINICAL HISTORY (test s0ekyCViICRqlDK7QtZyGRG code = 3356) xj9dlj2SpzWTdcHTqENbzdJ CfjeIsiq31rMY7eP78XC3eN JPnXeH7NJPynkI4San2GXKr IGNaoJCrE917i4ljs7qgbqY roNA2eByhIQSdcuhhFvA4EY tdECQlbslyUIy9TSfuQGYzd UG5VPQpqXFfX7QvJBDiER7p ycx7CDV5AVdmSWFoKfR3DPX twEVsTQPumKzmZWgtm867RC I4TjMdSTLbzoHslLzyfZ2oB hBwIEIMidAlZ9DsBYo4zULn cGFyfQ== SPECIMEN SOURCE (test l7ibaEMkDGSejHQ9GfMgBAI code = 3377) kr5ios2FhtQCdcSCsZIlgjP NdxyCixh03iER2cH87CJ8vS FFpJgT0IRPposM3Trc8GUCn CSKcvFRuU205n6wuv3cpdkN gzAL4fLmsWAWaznbqPcH5PP kdSKLxellxKRv2LHklOTXmv BL5GVFsvDYwT5FrJBEmOZ0m iwn9AKG0WRxhBDVhSgJ8KUA dkTCwFZJcaEfgNRdfs649PG W1JkUtWIRfveMkbElbfP1iF nMyMCBNaXRyYWwgdmFsdmVc cGFyfQ== GROSS DESCRIPTION g1irgWRuBOPkzLQeBcZdACG (test code = 3366) nEZEsg8ksBLThwSDoFdElQq NcZnRuYmpcdWMxXGRlZmYwe 6ejt803xXHep1gjVCSvUvP9 qFNiEVVgpKIrV830AUMiKQb ov6mhl2FiJPSvvNThh1M1XW MOodfsdJa2lHyeS61gt1B7B itgZ7emVJDvWVMpX3CoHI2h GTJlVis4PBS9VWF0CDBqCIK gA0YwZY0kZICrwTEwOCa4y7 tsxNinEPZwUWH7y2bjKNgew dHpBN2jfb0btQa5z7vwsfSc VCXgKZGpnEMPRTGvC3DnoUs bNg7bcYu8uGexQpyyVOM7Zh a7EZ4jzl72nhx7yVpcEDGgy hlnBqI2CJlySUDcglebPPv5 MFxtYXJnbDcyMFxtYXJncjc yMFxtYXJndDcyMFxtYXJnYj mgBZdeVKMrLNU2HOxbu856K ZO8RLiyt0kwi4lzxRVoWgc8 ICOwIeTmAavuPCbfm3Uzv8m jIMOlrp6mMXQ6eXVuqJydo7 Y7yDMwQZTtnISduuEuMAMuX fL4VMsxAA6rti44CWThJGW2 mv7oqJTtdLzowmFlkWLzCAs vV1NyQHExx189RZRvZ1XjEX Mly5L0cfFoBgSuWZYkhKN3n hT4QYYdCDe9pMYsimS5nbDc dIDfL8gwqL61EyDumLAsP1S vlT44HjLdkFKpK8NhfB86Fi OzrAFnT7GdjB37JuPfyMHzL YJkeYMzVi5fuSDytBZla6Za lHCbSXfuO55jj374KNQvhgZ vX2ijsESujhhgxTMcuyatLE hpffQ6QNSwCBUpDTttSPLaL GZzMjBcbGFuZzEwMzNcaGlj oTekQIckTyWiVUPcGBugK6z cZjBcZnMyMCBBLiAgUmVjZW r9WOKdcA3qLy8mbRLqbV0ag OXoQWlxJHC6kGHzQRWwMMHf HZTpIN66X9GnlV2km5QmXGQ gi33fDU2eEMJrzREqAPtmep FsdmUgbWFzcyIgaXMgYSAxL vGtR75mwZ2veKJxD7RrLAF7 IDAuMyBjbSBpbiBkaWFtZXR szjH8UY8haQsarsY7bLSucT NaBJspoLIrYNfmGHG1Xg1ma NEsYPFpdbJ5l8BmGXtmQFQb y7FnzASpKPPwKowkMWTlaBS aIDTjndHiaTnsqC9uKgEtHd MyNFxwbGFpblxmMVxmczIwX MlgrkwuEFBrTXrkI1ikTyHy HKVhqNlqSDhln4GyEEZmZCN bDlEyACHmPNBbl4oqGJ06FR xwbGFpblxmMFxmczIwXGxhb rgfQHRbZAnfO4tfLlWgJLBy hWsbWNmfk9CeQDYaJVFwGnV ccGFyfQ== MICROSCOPIC j5zmtKSaBAWqvNI9VuAtDOK DESCRIPTION (test code yo3mpk5TgsMZmaOUpRWaanW = 3371) BrpzIlfd41fKB6tN63DL9yH OMcWrM7RKXelvQ9Rsl2JEFx CSUsnFHhN231o1mhu3pfumU cdFP4yTqnDHIfoeqpCoT2MU ttRZUajnyeIDu2UXwrFLNks SQ0MKZgyRLfD4SbXCUsXS6c mbf2NFL4APpeFFXaUtL4IRP csTQyCNKtxOyoLRqtq357PE D9GwEmASYsvoLfkIbviQ3eD xPeIKBSYQGln3CnYLPnKAUs cn0= SPECIAL STUDIES (test g4itnZKlOPWecPQ1VlZuHIT code = 3376) xz3zqp5QiuQKfrFLkKLklpQ MrvfApwg68cYN9yZ07QC1cQ TVnWjR6ZSJabeN7Wjl3FYDa SIQiiFRrT362ZYTjGAAjqHn btmi4bU82RITwdS6xtLMpJT jsouFnOScwndJnuuCxGge0I NY6jZcgSGPjjeupQoK9FTjx BVKgvpmfKGh8EMxqOTBdvEP 4LZJucNQcR4KnOCHyDM2sah u9JQZ8AUbqZBPzOyK6OAHsy SRrBIJegJbqQSdcp260KJA0 VxMaPDPhbfJtlZuqvA9xZaT cZnMyMlxjZjEgVGhlIGludG KouRGxrLN7cG3hDU8cSXQsv YApS1GrRVIzwjXpnEFbXZB3 gIHojPOoZU4bVXjuzQNav6r cx7DhB1egjKjwyAA1YT2aEM ObQBIsJWelu3RhvB3vXtnwA RZdP5QhTPGNC3TXFUEhCADF Iv6QBlSEEdWeNcALJq2wKRy NUywgQUZCXHBhclxwYXJkXG YbHYQTq389vp8qCPZfaUPqc aABsXUdtJ5jOTwzZOczJBpe zHScOMdlo1puMQYfi3u5yLK uERCwaxOnv4nbYZxgjpLeFG IrkAUnpTGuQAWev44aLTnal McjvTenZRAaf5IcoJglq1Jm WrVdMCgcm2StN07uuANzpMI yiMftJJWglxWjBMBkt41yj2 vlMXLnMqN4vDRhwAO2fIIji TCqr0HkoXjnULFkr8frOZVw ip0lhimmpTIrr1CnuT0pqjm hEEpgqJGghgGlUPUih0r9fT MrAIUxZIIfCEvthDm2CQGlw 038ge4zczQ1dMTgAIJ7GZhh YWJsZSBhcmUgZXZhbHVhdGV fJHCyrwZlQYJzzgEQkE42dh 3aqUR1t6KfVP1ix2IhcNJ6T WNobmljYWwgdGVzdGluZyB3 YJIxuPMdUx8euRKtPAB2RJS eaWwnnrBYfR3vFMDlVJi3UP BzMeRyHybvddYAUWMxK6QhQ URoloPqkdetBUD6kY7cn5j7 RJbfQb8pEGYhyouhx0eooaQ whTIml9JdWFLztaBzh5PjSS McziVgkBVtQYYtnpPrnl5fu xJrPMEoFDOlE8OxonbsjQty pwM4YAGaLQOitNQosFlfNRM xIGh0VKmeeeClb1KoWhBgvn TjsSTlbsOnQU0vMKNijPZsk vFoNWP9JMJhYEELCnPlNJJf g1FbFO8gNDVrjJlqVORteW5 jv3XvCLKay90tNVVeZSFUAS EgaGFzIGRldGVybWluZWQgd IpboZIlsKBjOFUwBCLeGQ3n PXGnfnBmqHBlc3CmqUYmkqO jl3LfkhEuNIMfJLZ9RaPYfC MslFRtaJWsmcT0t2MeFMFhd iBrgUjdrFRmsFEoxWJcg5Ea cr9uLIHjc5ftiZouQH5slME iZSByZWdhcmRlZCBhcyBpbn Ota0RaE2A0qO9xWBpag3KyY y6rYUEvx4TzjnBpPdBFvBta ALxvMh9eKMEdigbrrPBxK0Q ydGlmaWVkIHVuZGVyIHRoZS MZzBtzoWKiqKUFICTeegK0u 7H1IWxdsFRlxyUlON79PEIz JR6wsRDzdKFsi6JiUYc6XNS oX4pSQW38KQtbXDHpcLNpbF byjYWfLKWlXCIbjdJtqt5mc WeqdASek45qlEY9qGL1AOLc vU6fW6WiYSbtWc3jJWWjgvn rqGXznRoyUx7efCSvvJ== Gross assessment was [facility] performed at ([facility], code = 2777) Department of Pathology, [address] [place] [address], Technical component [facility] was performed at ([facility], code = 2778) Department of Pathology, [address] [place] [address], Professional component [facility] ke[facility] was performed at ([facility], code = 2779) Department of Pathology, [address] [place] [address], [facility] [id number] 15:29:08 Test Item Value Reference Range Interpretation Comments Case Report (test code Surgical Pathology = 104) Report Case: [id number] Authorizing Provider: Logan Russo MD Collected: 06/18/2021 11:41 AM Ordering Location: [facility] Received: 06/19/2021 03:44 PM PERIOPERATIVE SERVICES Pathologist: Tom Paige MD Specimen: Mass, MITRAL VALVE MASS- for MICROBIOLOGY then pls send to Pathology DIAGNOSIS (test code = [id number] 3220) uZzEwMzNcZnRuYmpcdWMxIH tccnRmMVxlcGljOTYwMVxhb jBjNBKswDHeJ3WnxuzmHMgi WK2qCF6ifAlukRFhmIOuWQB bJaFnd2mlq412wLJrh9qwAS IJvcofyPw1aJinM04pm9D6J iefF52vtICrWKK9XYNqOOXo eLKsHTFiKEF1HPQelQGeX7j vEWSlDU5lbhjjLPspAVawGM DosYT6DFIjsMFzY9CyZHVdQ DxhFKZoywe8EhCeFz3olUTm eTcyMFxwYXJkXHBsYWluXGZ xIcFsLM6pMQUQLxPlOW3VMP JBTCBWQUxWRSwgREVCUklER O6RAsGlPX5IZFYWDPTMVowl cGFyIEZJQlJJTiwgQUNVVEU uSR2XSCUAJEOKI4WCSEYJP5 GGD8HXVDPMGzQbD7FQS2yYN OWXSZiAQw8jbUTmCVVZKKGI XDibL5LHCG5NQOIPBsAELkW YS9ENZ1IZVD3IV6TPGBFWFp RPNA8SWG6IVUFGHDLFWeBYD CTHRwGOR7zYF6vcGRomPDOv A82BGcTYRWLJN85nJ8pCQYE LUIYZD1FOX3mZK6uZATuqC5 WYPRnMShPGWaDMEATYOI8JV mZJNB6jYEGegv35NJD8YpXb b3J3FGW4FJPdSRGgb3ubMOB mbGFuZzEwMzNcZnRuYmpcdW FkGDFeLsTqq4bws237tKMzf 2ejVWTfZcP6sUPiFAEsaJQl D990JGRgTOomo5iov6SkZCF skHNuk5E5FGTVzoavaKq3nO fcU47cp1K9RcfbX6rtXDCiB ILyW2KaUE1kYLXwXmc7PXZ8 XZY8YUPwFNTmJ0OyOT7qNAL nsOWwCGb6g3brfImxLGNvUH T9z0sgQGblbfQlWE2vse3rk Hf3z6kdmcWuPKPpBNYctWET NCZpK1LlbMzxSe0egFm8eFq bRioiMVR6Jzp9YO6tou82wt q2oAeeGZBivtfyDoY6UYxoY MTaqibgJYn2MSjzLWEmoNJ1 LMYqyVZxM5EpDNPxAF5uviq 9BFZ8XMphYTZaNyX7OFVjnW KnXTVcpLyaBXiqf524UQW2H fSeMQ5jX9Hiq4C4fN9xvGVg KZAgxVYlZvQxQIWhiv3kaYO mYFcsf7GjOJK0dyM6jRDuzR BxUTHzHzY7VOlsEP6bos54H VYsTHD7ol6srZAkbCrznwJe nHKnGXwmL6KyWFApp958ERH nI2AuBKOkl6E9cuRiNzVyPS KbjFZ3ovI5ETXkFE7nceipb 1deFRvkFWkzQWRbejZ5lhW8 JCVdpANxW7OvlE5uCERaWE4 xfycjb8edTWL5NErqALRaSL Z0ZoXbAMCru9Fwyah0AfUbk 4LdvCAsPRjaJ37mh037JTNf wmYlD2jqhTRcoqpxeGTtnku qJOxlttS8UYYpNHrginebZD IyXQscS0dvUrYaCCYftJtmH Eaup7XeUTJyVCCnAiTslNDx GKHzNko6FDGgvTZaYKSpKdR aV3wjylvrUeWQPSPte5nfW2 wlnCBNgVCbS0NjTRtxdzIsB EdvNPweMgDmIPCyRQ05YFC4 CFTytt38 CPT Code(s) (test code l1pczZKiQSPyxLU2SpOpHMN = 3357) td4yjt4RmxCEaaPCqKFdfiW KwmcKjft17zSB4tY38RU2kC WMfIfA9AYYpxbN3Eka4CLQg BEUovZGlQ050b9czj3tzegO flHH6rXwhEYEimrfqKbZ4DV upXBWvsnjeBQj6VLojXYGqv QR6LTMvbHNnC7ViGJKbVW3p jsd6ISM3QLbcGSVbDlK0TDH axYNjIWOtjGuzZJefw236TM Z5NbIfXHPssjSvnTyknO7eU tMwTOP8DQQfGDsfKWkuKVRN D5foZRM5 CLINICAL HISTORY (test p7hykDGdBEIhpCO1RmOnJAG code = 3356) he0rhq8OvqDYioUZyKYxbmQ IcqjVbuv76mBV9wU20NJ5kK SItFbH9SUAizvN2Wpp1ONLb ZHKvhETeN806s4fmm5pjzsK tpZR6iPypJSEnqnctDsC5EX saFQNiyodeNGc7FVvkJFNag QM7VMYfcWStJ0HuQBZbCO4o wjx7BKU1AMfeENUxYjM6FJN kiVLhGKUbhBofUPdwo908TQ I0AoZjPROnggFpcMkvmX9uD mLgFJOYheMiD6GkCZt3wTRb cGFyfQ== SPECIMEN SOURCE (test q7iyyDSsUJOgpJD3QaOuDAI code = 3377) qd5hma1KlmNPfsWFoWBjhxS MqocIwvq06xVV6qT91BZ6kH DAfTiF7FXOhxlZ2Jbg9QLFh AKDivEHfG560q6kfj1mxxvP zeAL3yAvbARJyfxfsUtM8EF jpYXUbsqcsBKz4JYvkAANpf IK4KPUuiVCfV6NdCBNkKQ5j vis8OXA6IJypWDVkJgM6TMQ rcLJnOTYuiMylVQdyr162KR R6KgRxRYXrvySeuZculN1qQ nMyMCBNaXRyYWwgdmFsdmVc cGFyfQ== GROSS DESCRIPTION r3brrYVxGBTgdQEeSfPiIJA (test code = 3366) nDHAao2ovXSYksYTuBpEoGk NcZnRuYmpcdWMxXGRlZmYwe 1por727kCJhs0thZGUcSwX9 kGVdIUVhgAQiF114JZCxREb yx5tvn0QeFLIreMDuo4Y1QM QNhqxrzPz1cGmoT22vj2B9A izaL7xbOBNwALLhA9AhWH0h JZYyObk2WNN0PLG6ABPhBGA wI4SmTL0uMNMavFVrXYb8g4 ieuAulUIHsEBU4n5qeRVllb mZtMV2ljn0nqNl0n7iizpJh SILhQPSdmYBJEETqQ0UbmXv fLh7hpOb5rEntWgzjWBC4Cj g6FH3mim39wrn1jIfcGSFow fgvMkY8DSvkXOLnstbtKGl2 MFxtYXJnbDcyMFxtYXJncjc yMFxtYXJndDcyMFxtYXJnYj drFFgkZYVmHKZ4AGubx007P HV5QKfyt7tjp3oyfECdGiu4 ZWHiQhZaInecHQbug7Xnf4y rYAChko5fXSD3mNUseBgnb6 K8pOVtHTRdgBNdzmSySIQoF jI4CIbtYN3fvv57EPWjTZT3 zb3snWMboIwwraAecBDrAHb vG4IrMATkh531IKEbS0WoON Pip2D5nvDfVhRfWTKasVX2z yQ4GLOuBJp0vNNirlV1lxWu uFRmE8gfvE54MeRyeQCqQ3A upY75GbOrgVReO8MugC26Zi ObuKBuS6MbcK52SzWubFQlE RUwuGKvZr9uiIYwpGMhv8Ko cKYiVCzhT68yq765IGYhrfW yO5soaCGivqmylMIxbhqcDU eamkY9WSWdMLAyDNqdUCZbK GZzMjBcbGFuZzEwMzNcaGlj wVhfLEpbMkEbMPPoLLoeG5g cZjBcZnMyMCBBLiAgUmVjZW b1UPJrvS1sXe8dwGBchW4so GKbXGsiAZS2dROwANZrUWVe AXKoKE79Z9XetI1qf7FcWOH xb22xKN9hUBQemNFoFReowm FsdmUgbWFzcyIgaXMgYSAxL nLkP06mjP7qkFEqO4NlKVX5 IDAuMyBjbSBpbiBkaWFtZXR axnD2MN6rfZytvdA7tXDyeC HmBIqpfWIkVQlsRFL6Ra8qc PJdELTbgxX5s9TgRHukHGTc d9XcvRQeEAWsFhsyCGWmtNA rLCZwlrDhrXxblL5dZwAeSk MyNFxwbGFpblxmMVxmczIwX EakgpykEIGyEXfbI0jzWdHm SGQqmWtuFUorn2OuMNSsBGN jVzMxWDToCZFnr9xrGM54UV xwbGFpblxmMFxmczIwXGxhb nugASWfFVeoG7qtXaGlQWQr oAdlHWznx9IzKNKvMSQkHfR ccGFyfQ== MICROSCOPIC b6gbiVRmMNMcuGD6QfAuSFI DESCRIPTION (test code ab4vou5OkiRFtwCCuZOfecH = 3371) KomoQibs20cAN4vX56XK6hN MJmHiV9JURtkxS8Nex3HVYp EHLjuNCfI432y3hjs7hkrrV leGK4qJdjGXGnsitaBuD9JH miMMXrenfgHTs1YYlgPOSki PK8GMPvcJEcX7VxPODsWJ9w txk7BSB7UDahJGDsFpG3JLS yiVFxXUHgsKgxVQnlz064MF H2MzKmNBSgfqUrpQvcqM5fB rYrNJZCJJSms7EfMPAbMJRn cn0= SPECIAL STUDIES (test z4katRXaJBBxdUQ8OjEvKOX code = 3375) dn4pre6PpjNKabQNeEThmuU PugjCnhp63tJL9dW74UC2gI FDjVwN3ANPeieU3Tjm9HUIq TAEsfHQxV189QVTaBDKflTr wxbv0xH64PFIlxT4xsBElDF bfwlMiEWmyxiHoksVbHgz0B UI4iAkkNXLkiwyuYrC6CZub ZBNrselkKVv1QYxgPFGczPB 0LLGqlRLsN1RgDRUyHN4ool m6TYF7IVmoGESePkM4IRLla LNsXCPcgOmrRVtao651DOK2 SwMoYLUnyaWzxKdgtS9fXfJ cZnMyMlxjZjEgVGhlIGludG NshJHheDJ8oC1wEO5xVSExo INoK0PzEZBaigUyeIDtLJS2 tRRvsWPaOQ0tYOykkMFbn7h gr6ThC9nqjIgnyTW1GT9tBQ VlJZIwGWfio3AfjO3wPwvrB XBrS6AgHSZIT6JFESHlQREL Zs3LRbXOVqDlRaTVAs4mZGr NUywgQUZCXHBhclxwYXJkXG TdHXECi750rw2kKAJjeYAnx wEXnMJcvP3eMQhwRGvxAMto yPTfEWsro6ymXIOnt7i0mRZ nAJBzjxAho3zkPDfiszRcNU KymXNgsWXuXKCeq57iUMipx YuqdRjvEQQqr1FbpCivo1Ij AhNyXQsol8LhD90fxHWlzQV acHdzJMKyrjWoBZCay64vn1 xrTHAlOlM4nVVklIT5wSOcy HBeu8DuaAfwBRAme0dgDPDz lh2bqadzjVLme4ApyK2jfbq qOZiucBPljvGhLNNiz5x7aR VpOPNkZDCdHDqyeEa4OYLot 967wj9yyeX9uERtMAE8KVrf YWJsZSBhcmUgZXZhbHVhdGV mVUKiusJwYQKkspLUyM22pe 9hiPF4t4IrPF1rx6KwvPL8H WNobmljYWwgdGVzdGluZyB3 QCHvoIZqEe5nbJShNDA9DEH ghTqrrzEFpQ5gHJQyWUu4KO AhEjIpKbccdnKFGHJxV0ZcE GYycoSsgodvFFU8eH8xk3y6 PQwfGq6qNRHbznfyz4vvhxD lnIGnn9ElKRFdzlDuv1MoXS YvciSorJMvNEMucuDqhk8wf wWyGTWbFQIaI1XnwcrzsEqk biL4DPVuSZRuxSWxdMriFOS oMFp0DZdgkeAkp0GlZyNodn JstHPtitClRZ0hPGDieGJzm dUdJPK6OCRnYLHPJlEpLIKu f4NeIT9sKUBsrSqlWZIfeE2 ci4HkNSKcv29sDMSsSJZCIL EgaGFzIGRldGVybWluZWQgd RbobUZadJAdZSDqTNWmQC4g VXQhdyOpqTJdb0VamHIngdI pg3IpnzTpPTFwOZJ0SmSNdL DxkHBbpGAgpyU1a0RtCNKai rHkvNiukLWfzOVjyPAkv4Qm cx8nCYLpl2tytAuwKY0fzFW iZSByZWdhcmRlZCBhcyBpbn Coi1HaL6W0zJ5uQTqmm8EiB s5oRFBif2YsycIhIoGIlDkm GSenAy9pYPXlnpjbiGUcI5D ydGlmaWVkIHVuZGVyIHRoZS WGuXdgcZLhcRHBUENycdQ5l 5W3GWuvrLMvvxUqKW71PUCo NH3hlDHegVZcq4RiJSr5QCH jB3tDBR16GJxkKFSwcQDggI uwnAIhRMUwDXZbziVmig7ux DcsdROyn34ueOH9qXX9WPRm mJ9qU9PkPNljGn7iJUOejnm yrRKncIecDf0zsNXnxA== Gross assessment was [facility] performed at ([facility], code = 2777) Department of Pathology, [address] [place] [address], Technical component [facility] was performed at ([facility], code = 2778) Department of Pathology, [address] [place] [id number], Professional component [facility] was performed at ([facility], code = 2779) Department of Pathology, [address] [place] [address], [id number] 15:29:08 Test Item Value Reference Range Interpretation Comments Case Report (test code Surgical Pathology = 104) Report Case: [id number] Authorizing Provider: Logan Russo MD Collected: 06/18/2021 11:41 AM Ordering Location: [facility] Received: 06/19/2021 03:44 PM PERIOPERATIVE SERVICES Pathologist: Tom Paige MD Specimen: Mass, MITRAL VALVE MASS- for MICROBIOLOGY then pls send to Pathology DIAGNOSIS (test code = [id number] 3220) uZzEwMzNcZnRuYmpcdWMxIH tccnRmMVxlcGljOTYwMVxhb nQjYCPbdCTuQ0TvrgmxJHdt SJ1oAE8gjEqcrOSvhQTlPKM jNrOdq6pxh120eMPql9iqTT HZssnxvZh4oUipF33pf3Q8M itxS02ecMVxKDF5JYArHVUq pEMhPJOqYXC5NJXvuYCpE5v tOIYnOJ0tuijyMFcsITsiCU YjoGU6VTQxcMNzL3UtUCYnI EjrQVUvlmd2OdBnTs0vcHCp eTcyMFxwYXJkXHBsYWluXGZ mAbXuBY8aAMWSGbFuZK7AKZ JBTCBWQUxWRSwgREVCUklER V4FLqXcWG6HWBPZWEAAMnqy cGFyIEZJQlJJTiwgQUNVVEU sHL6RDAKAXJSBZ9VGTDOLP9 PAR0QZJFNRUqWsN9KAY1bIS QZTQKcVKw9wzCKrRVYPQLYS EDypD2JZKD7AQZHNWgURGxV QV7KJR1GGHH6VG3NYZSHJIr OVFT6HFH5INVMBGOYSBpFCK OSHGzSBR4gNL5maBFusVEGo E75OSwHZLTXFP33tE8dTHEU LTLRVW4HQE7xJC1uVGNzzZ4 NPEWsRKpJPMiMJTKDEPK4XP qRZIK9pABArmw01VZJ0NsNg k4H3MSE6JMYmTMRge2acZJD mbGFuZzEwMzNcZnRuYmpcdW AqTLByKvRwh8edr772vIJjq 7faFPHgAlG8yVAnSDXsdEQd L740CWDqMEctq1auu4EgFOI wwNBhm7L4PRWKlzurfFe5dS baP02vx8U6NzewN4whFKScZ JJqQ8ZpFA5gNPUxMed6OOV1 RRA1IFQoOIMdW3CrTM6dGCE osPNkGFv3z9qtaEzkAWJgUK M2u5fxGFgbgbOpQL0fri6kx Bt1p1ynifEfXSGoOTUraMIC LYJnE9AxeAvkLn8rfCz9oAb vEdvjUMN7Cjm8VD3xiz12ta u8lRneQEAsnzcgKlE3YUttL SDnhwlwNMd5FJxmFCLuhQF8 SIWhuAEmM8HiXCUzLW3cvad 3URT7AVzzOGYmSnN3QKOrtP ZpADHjsVxfOKcum532AUB6F gMcLC6gS3Aie9T7mE1xpYJs LLEamFEmDcHbTHFycf7hhTX hZQozf1DaTGK7gvA7dQDogA KqLIUtKvS9BLmrFJ5zyq17O ZExKBG8va3bzLIpmZklvwPi aVWtVHafN4YrXLXpw048CKU yV5HaQKUwl3S9lsXqWnZoDL RnfAC2pwI7XMKkPF0bvtbrq 0akDDklKSjkJQRermB4erF4 RVObmQYwL1AooD1hKESlGG4 flvwgw3cyOGM5ECbcXIZlWP M9ErCmMOYrb6Ynqxp0HcFxb 4PfgTSrLGlaW19zl440JYDp ffDbV6gxsVJmkkrfhYUuwix rOQogipF4KUTyXImamhkzJJ QdZRhsH8lvNjZcWQIpwIvkC Lpmi2EbXOSoYYHyNrKfeBHs JNKeLhc2FRKcxZPqGIPkVxN jH2hyfrcjIjALAQEdt4uvF7 tjtSEKiPWaZ7XsSTtjotUfT UefFYnvGwMcKAYvGN56ZPU4 QGGxzg48 CPT Code(s) (test code f6pnfORiYMHhzEX0HyFmVWK = 3351) yj1xyg0MwiIFooNZlFQuxiE KjzkUzeq15aEX8dW23XS2hO OKsSjR9VVKlqdZ8Elq7JRSe XJDzbWTvK278p4pvx5qdzuP dbEE5rThjIJVjqveoMcC7EQ siSPKaqklaKBe9MGnaDUMlo QD9EUNqeLFbN1YnDBJoIP7d xwl3FLF8RXmsLNHfLoC9AWD axEIbFHWojHqvPJbjd817AQ W5NoFiKNPtobNusDuvgR5lT wQlPWD3TCWvJQvfSWrrYHYH A6ofSBX5 CLINICAL HISTORY (test u6zamBBqYBRvqDP3VmVxZHJ code = 3356) fk8dxi7TuxUDvoVCmCDifaZ PqhpAzag19wMP3nB00MN9mL MPaKrH5NZMumoO4Vou7YVLk XMBymHJiA744z9kbs6bcuuF buOF6dMaxZLOqhlohHzT2DK nbSWUgtviwHZk7WLnjUEGyj RT4RITjnWZaD9ScAGOxHK6s qol5AIY8BZdzHPJvLuE5BTP cqIAuWOQjhYkjJUdbr046FC R9MbStUEJpdtSkcGpgxH5qP sEyDTSHtsZyX2FoEZk4pBWg cGFyfQ== SPECIMEN SOURCE (test m5mslHZeUZEuwYW8YeBtVYK code = 3377) bd0afl8WasMUtnXKiFSnpxG HavtMabc30tDR9vD18CL9cI GAkZtX6LUYvujT1Nhj2FIIp EQSdwYIpR236a9evw6refoH uqKB7fAupXIEhldnbMxV1HO irRLChvqgiHYr0ALojOIQqb IZ8FORrtRAyQ9RdEONmAV7f bho6VXU2ACoxQQGvCjW6RQY qoQUaNLUehOeeOFsaz479PG M9UaSjSQZtmrUexWyxyM0iS nMyMCBNaXRyYWwgdmFsdmVc cGFyfQ== GROSS DESCRIPTION c5kfgUNgIROqzLYqKkZbUTY (test code = 3366) mYHYfr3rcWDDufSWoLkCvMb NcZnRuYmpcdWMxXGRlZmYwe 0qhr783lITdq6myMIMtCkX5 zGPyTWIdnLQzY558GKClDFv mc1chy5XcYYCtcAOxk1N4IN DPgmmyeSx4wNqkC94hr1U4V jspP7swNHPtMQMjI8DdCF3y TMLsVjb9QPO0SHL6BWWqVNC bA8LvVS6iLTNcsGHpCFy4g9 mvwWwwACKoDAA0m4ivHSyvd xTuUE5uqn7vzIm0w0xqhtCn AIPhCLZhcTXYEYHzU5KwxPe mDo7ayOn3nFjaEnxoIRL0Cy p0FM4fva09afz8nEimRYWsn webXqP0AVbqJZOqvyleURz3 MFxtYXJnbDcyMFxtYXJncjc yMFxtYXJndDcyMFxtYXJnYj gnAPpmNPHpRVA7QHzxf818K VR0SYqyz3avf2zwjYVzDou8 GSYnRoUnZsmrJRdng6Bho0f nVQTkkl2zOGZ3qSXgpFyuu2 N0wIEkQBZxiPWmjlKcMRKsA uP9XNvoZY1kdm41GANnNEP6 cs7eeSIodDqmpqGyxYLoLQq oS7PeQDXfe877ZAWyZ5XwIR Ynn0F1cjBmKyNrFTLhhDD3s aU0VQQqWAy0zBXysyO0xpNz aTMgC5ehdT39MjWshUEhC9L ntX21FwEylTHtR3ZnlL14Cc TecIIfF1XreP05HzBavCZlV PIibTHoFw6aiSVocGDzn3Cl vVYrLJjcL56fn048UFCyrhK sT5rwxTMvhxnpzRUlpoowRY rbarE9LRBwMYHaQVzgPEXwK GZzMjBcbGFuZzEwMzNcaGlj kGmkTKgiHzIuJQCrGXebV2a cZjBcZnMyMCBBLiAgUmVjZW q4ZKWrpV3eAf5hpYZteD7vw DQeGGzlOLU3rOSoZLLvRGQy EOAjOB13E4PkjI7xj8MoIIZ lm86lAQ7lGEItiGXnYGhcrb FsdmUgbWFzcyIgaXMgYSAxL kAcR54pfH1nxKNfW5EzLBQ0 IDAuMyBjbSBpbiBkaWFtZXR zfdS7XJ7trQpgrsE1hWQvdO HtROsaiUByORgfHJB9Ck9qb TFcRAGdvjI9q8ZmKAfxSQRf y9PwmKDhENIgMfgqMJFnqIU iNXEbkiDrnYmqkY9tTxWfHf MyNFxwbGFpblxmMVxmczIwX JbmnztdKGWuCNjmX6qhLbCr ALZwwWcxXAetc4ZfZUWoDDZ hLuSrBEXhZVCmo1reZZ76RH xwbGFpblxmMFxmczIwXGxhb gwxXGLhYYxoN8acMvKnZAJh cDstDBaow7PuKKJeHMDqJnE ccGFyfQ== MICROSCOPIC j4igrEMoNJLzmAV5CjBxYLJ DESCRIPTION (test code vv6nsm1QmmGWnzHGdBDarnY = 3371) GwxsSmwk29hLN9uT99KS3iD JTeMnZ4HCQfobK1Jln3DYOx WJEynDQfQ956z0rvf2fxkqH rjFG5jBkbPNSrskeqVmZ5QK msOMDahbxcGCq1KBzuKZErd GX2IDBpiQGtH4DhPCIdNE5a ivq1GXO8VBzdUOHmVaZ8BRG gyNUqFTUelNrdCHmgz467KL D0GyGvLTHfiwDmnJzqnQ3xI tImBDGJMQUqz9XzURDhBAVs cn0= SPECIAL STUDIES (test y6awpLTfVTFjeEB4DbTeBAQ code = 3376) na8yuq2XmmIIoaYWkOWjhtF RohmXmps88rJW0aQ41BO4bZ GAeAiF6FYEgxxL2Dtq3BNIi ZVYcyQQhF363NYHgPHLbkYs dalz4hW70NBSsrX8mbWKdUZ kxxwAgWNfkikHgfhMrRrd3Y KK2xVnmIHSwsbmhYsR4TGoa NLLrbxerROg3DZipUMXzqNS 6BLEknFHuS2WiDBHmGK2qgz k0XES6VHndADZyRaK7NSWxs RQwHEAtvWstCPabv021DEC7 PfOcCORtteXtgIzvbW2kVpV cZnMyMlxjZjEgVGhlIGludG AlfOFyqLN6xG5cAS2pLRTcn IOqJ6YzNJJlnxDpvZApAUZ4 wKXvtQFyYW0eQHauyZXcd1z rl3UsA3xqmZhvyAB3ER1zXD ViJVIyURfgq0ZezX2qNodsP JMkF1MnOCFHC5DXJWRyXEDS Pk6TAyOKFjUjFeJLIw9dINk NUywgQUZCXHBhclxwYXJkXG MhPOWFv154tf8yFFOtfUBmu bSHpMJfjR3sIAoqBOlpXWlv gEKxAXwuu4tzCBUaw4b8aPD rOEWlerPqv0yzBDngysMiDZ YwcSPzkFYkDBXuh26gYTvja QbuxUjhFUDte9JukNbla6Yt AdZzWVzxw5BfL51wpFCwgMC ojTojKZJcvmMxKMHyy50al8 igMNHqVnQ2qIBsqKF8uBPvq WIup9SdeScgIVCsm5qrAJWt eq1zmghrjVPof1GtcW3ohzj qZBhhqMTjlzJoEVLcc5m8oE ZpSNPoONPmOMdubOu1SAKek 527dd5qveM8wNHhCND5FTmm YWJsZSBhcmUgZXZhbHVhdGV mTBOtbzBaIFKdzbKYyU08tw 6jfRS3m9DjZH2ib9FyvRJ0T WNobmljYWwgdGVzdGluZyB3 IZMljFXdHt6hnAYvOMB9DQT osQfxzwBSaG4kUNQzICu3RX XeVoCgOlodmsYWEWSdU7HdX GQmykVpnilkEYC0yR7gd0q3 LWvgTg3oVEFvjdgdz5ptgaL txNGaa8AkDQTigjZfq8BgLU AyukStcJKvSYKfrzGlyk6ug bFeSLIvZHUsQ1RjuwhfjWxf vyQ6DJEzXIXekMJmkUsoWEZ rMCw6GAghyyRaq8TrSyTxag WgpLGhgnUpTE6oPTZqmGPfy jMjZUW9WFQxFYBKNkXuKOZm n3DtTR0rFONiwUmnKOGuyC7 rd0DlWRAil81nFFKlBRHSWG EgaGFzIGRldGVybWluZWQgd BnxpQVdxOUbBUBtCPNzHH0w GMMevsPalIFoq2JsrOQpnyA vv7ThbyCfDHOeOMM1QaFKyJ MtvUKxtVBuftO7v2BpGOEzi kPubLqkwWZenELnbEKkh8Yg xk5iYGYxi0vfwUglNT2nqDL iZSByZWdhcmRlZCBhcyBpbn Jvq0OlQ7Q3rH1wSBdcg2OmT g5xWHHag1ZztkMtHyGPnKgk BKsbJp6nZJQuoacumCDeJ7D ydGlmaWVkIHVuZGVyIHRoZS YClMfhdEPlrEKHVTCxlfI4o 5G2VVuraAQfspRhDY57FGOl IM4axTJitUKoc6KaJKp7TPH mU5qKEE04JVvrPVEisSXutN uuiKEqLRPfNRFlheCvoy5sh DvzgIDup98maXH9nBN5MSIv zG0hO0VpVYhnKs1cYFPibdb gnTOjoTbvVw5aaDAlnI== Gross assessment was [facility] performed at ([facility], code = 2777) Department of Pathology, [address] [place] [address], Technical component [facility] was performed at ([facility], code = 2778) Department of Pathology, [address] [place] [id number], Professional component [facility] was performed at ([facility], code = 2779) Department of Pathology, [address] [place], [place] [id number], [id number] 15:29:08 Test Item Value Reference Range Interpretation Comments Case Report (test code Surgical Pathology = 104) Report Case: [id number] Authorizing Provider: Logan Russo MD Collected: 06/18/2021 11:41 AM Ordering Location: [facility] Received: 06/19/2021 03:44 PM PERIOPERATIVE SERVICES Pathologist: Tom Paige MD Specimen: Mass, MITRAL VALVE MASS- for MICROBIOLOGY then pls send to Pathology DIAGNOSIS (test code = [id number] 3220) uZzEwMzNcZnRuYmpcdWMxIH tccnRmMVxlcGljOTYwMVxhb jSyYPVcsMMrG4BlmddoMPou RA9nMN4paOfovPVmnIMqXXN uPvLar0gwk406wCEoj6wnNK KVxbjwfGj8zRroO46ht7B3H ajqH13sjWBgNBZ5YALgKSMa sMNzDGAyONV3QJZaiWIzR9w mKYGyBS1ftgrlBCglZWobNV EqoXW0ONFgaSVgQ2LqHHPpR OcmUJRybxg8TtSpJi3lsZLd eTcyMFxwYXJkXHBsYWluXGZ oErZoPY3wMZRRIyOvCX6YIP JBTCBWQUxWRSwgREVCUklER L0ALfRaOL6DVIYQBIYTXtjv cGFyIEZJQlJJTiwgQUNVVEU aKA7OKOHVTZRFX2AEZQNWB9 IEP6SCRUGTKeMtX8FBK8sOS TQNHEoRGw3fpVKhYDKOBGTD BOzjG2ZAED6FZJCZTsHQFnM LO6DIM6JRNB9EZ7GESYCDKp TNZV0BBI8WZPUZTXNWNoOGQ MZDFoZAW1nVX3wlBXsbQAFn A05UWeAXWTEQJ90fC7qCOUG RDVGHB5UPM3yFE0kSIEjfN4 RETKfBMsAAEeURDTWAWL4JH eBLUZ3wPPLjjf36ELD4GwQf f4V6TPP5NKNuMYBpt9zgZMC mbGFuZzEwMzNcZnRuYmpcdW BmEZDpUsGww4axs883wGOzo 0ubINEbTxK5zJUlXXXotNCr F789UNLdHZsad4cld7XzASL hlIMab6O6IJOYjmvruPz3aS kzT16ox3D3RdolV8lmVSQjU EKfR5CvJH6uFLDzFmx8MWS4 LQJ8VGQcDIOjC6RtSO2nYAI ieCQrYRw6n6frbPveLKXgDP Z9p7seUXpmheHrME6tow5jr Ne1v2fxacWzRIYyOLDtyKLB CHStD7KwwLdaGh0suEc8wMq gCkboIBI0Xlk9ZS5uvh93dl z8vQrzKBJxtjmxRnB6PYpjG PWzuqvpMGl1YWhhZEEucVC2 KADhrCRoV8RoGKJbNA0owdl 4WQG4XXohIDPlPyZ7XWRzhE KnPXYdwZlsOYcla732FVG1F vTvCS5yI7Rsd4Y0kL1hqNMy RJPxiAAdGjBfYGAyfx8cqLH sLZjef0KkMRU4xdR7oJNexC QlJSDxWbL4MDlbKZ0xhc07T LNqKZB0lt7ffVXsyCvdllEt xIJsCYbxA8AwRHUiz518MOO tX5MhUWAaa0I5uhWeIoCeVU UfmAB8wmT6SSQtGU8bpgobw 1dqWCfvTMdbKAEfouA4ysZ9 UQNksDPmG1ZbmF8mKCLjPB5 ofuuzu5jtXPR9PFvnPPWgNP R8AmNhZGJtl1Zcuch0IiCme 7KqmHTtRQlcU54vh002GPKt wrYtO0gfhKWmulmooFRfwyo jYXnhznS8YKPuWYfszvplVB LeKLdlB2umNaSyZXItcBzuL Jdwl9IzEOGbCPBoYcYsvWEt ZGUyFxn9MOLzoHZgVQFbPnC nO3cuqdsmXnEUKWDce1msF1 gqbMGJyZXnL6RmGGheifJfW KpvLJwnWuOjDCVlWQ75IWF6 JIJexd15 CPT Code(s) (test code u2wkzLMcAVLkgGI2XyGnULS = 3357) ri3sni0EaeCEvuWObFEjlnL UqmsJikc47qRT7lB73XU5iJ IYyEaK2HAKxeyP1Fsq0DKIr LTDodFRwO353u2wav7joczO gbFG6fZefDMFfzcdkFnD1MQ oaHQXqntboORd5LPvqKHDdu AS2OZVibBRqL8SlEKPdNU7f juy0NCY4NLllXPJtMbJ5BQG kaZWcKCCtrHatTCmpi645QN N9XkTfKFVrivHkcQdzeY9rA jZyPHK2SHHaQNtxGKcqNGRS L8pdZJC5 CLINICAL HISTORY (test d0uueFXzZJBmjBO7RqGxUFH code = 3356) eo7gmg1KkrRXgpQQyXThbyS YrnmKpao15tDZ4tS71LP1eE KNdXdW5BHFhgaG2Zqd8ONZv EKPyaXIsB017u0dyy1gphiY rdAV4iCcnHFGzvngdWcM1PM saAEOtnoeiNRw4XNocOGQir VK9HLRnhUWxI4BqKECcAB1l uwx9YQX9QKynPETwAxN1AXF jjXPmQQXsuQktPSgdq449FK M8AsWtJGLhppRzjPaskE4uJ tLvNCPVuaOvP0VvJPb4bMRv cGFyfQ== SPECIMEN SOURCE (test h8godMTzEDLniAT8LkSbFKD code = 3377) tt7qrm3FgiUUilGXtNOfwgG NoomHdzk45fBM3kN03SB1pQ HYeMrX0IVWvxaT0Zbc2ZBQb YWFktKMwL841b0zvi8snabE enPD2zQiyNVBhkkqaAeG0ZE ecQYSigwreDWl7VCgbFTLby WP9HPDuyDIyA0PxUTXzAU4n vfl3WQT9OAhcMORgOzZ2VBN yqOQvFZPnpLzwBNluy446IY Z3UqMnYJOvvsCehBsobU8fR nMyMCBNaXRyYWwgdmFsdmVc cGFyfQ== GROSS DESCRIPTION k4cqxUYdKEHizQHqLiVmICO (test code = 3366) wRTYak1ivHGXfoNAoGsJqWz NcZnRuYmpcdWMxXGRlZmYwe 7oul426jNNlq2muJGYkAvS1 zIZjVLQgyUAxZ264NLGlFCp tk4htp4OuWBPwlDMth7N8KE NKpegifJq1zCxvV92kp8T5K cudC0qaUTJcFUZsY5CoRF1u NXEeEnj0IAS6QCF6MFFnOQA cR6JgGE1xPHRwlYYiTEk5t9 yfsUmzKHGrHUJ1l3qhZXlql dVsFS7yla4fsGv8e9trgiGf XQFcAETllHBDUFKbH5HdtAg pHb8qqLs5sLjsGzkkWLN0Lw d2NB6zok85tmn7vKhoFBCww utrDcS9KYcvHHXasvurZDq6 MFxtYXJnbDcyMFxtYXJncjc yMFxtYXJndDcyMFxtYXJnYj dbSHlwULWoWKM0SQxfk284T BW6COflo3sry6kkrKDpVom4 IBWnXgEvAwzoGAcdt6Ink2p mWXMjgm5nNUC1yUXyaDwhs9 C0aQKsGEKruXXconKxUQWxF rA9JSzhFY3tzs34RPAsIEK0 te4fsMKfgMuottCprSElREd sQ9KcQXZad910PIXxG2WgEU Odo6A2xkImEwBqFWMkrWL6y vJ8AKSgUNp6hEViunZ9uoQs uXXdZ5xbzN30PwSsoOPtI1P zgQ66XkGkqUFcF9FrmA14No KjsCDfJ9YznS76LmFugEDtQ WMqiPQuUf4fuXNdrOKcl8Dl pIQiYNcbN98rc459RATczvM wL6tpkGLjzuchfCCkymhzVX mkinX2PVNgOHJmAChyTNOaD GZzMjBcbGFuZzEwMzNcaGlj zCjbIPlbIjFbNRUgSNizK6m cZjBcZnMyMCBBLiAgUmVjZW t9HJAgyD4zZb1mxDIeiN5qb KXlWXmhSPH3yVObQQKlJYMb WKLkWB81B5FhoD0xx5BkPVY pm65mVY9bFAJocACtVWtrti FsdmUgbWFzcyIgaXMgYSAxL iYdK79vqY8kwSKcF1JaTIE1 IDAuMyBjbSBpbiBkaWFtZXR cmzK5LP9xsGakrsP8bUYnrC EtMKmycBVjKOpvMOU7Pu9te VJtFGYtheT1u1HaKFdcTHGq c6ElmPAyCOYcBshcRQYsoCU zLYSlwkDglYyieP7wNhCmZz MyNFxwbGFpblxmMVxmczIwX XamwvodRUNtXXnqQ0qlAcGr PRAyaZydFTlma7QbMUTkTNJ uChWoDJDsYZVff9egVU01DI xwbGFpblxmMFxmczIwXGxhb xxvXRCmGRvnU5utPlPwTTAd eHgvXUqlq4RgWVIxKZVxNwM ccGFyfQ== MICROSCOPIC w3zosJVcOGGpyAR4DbJdWHF DESCRIPTION (test code vx3sxf0AllSSwlXEoEMqylG = 3371) QkkcPhex83kCH1fT77MQ7fZ GDmXwD6HGZvwnG6Duq2YUJy QUCswMBnF877f0kwa3gvezC gtNJ5hMzpGEMhqthzHoM0JG teUUPslmlmYHd4MRdlBLWln CW2DCPnmHEbP9WrJQNzUN9y qfr4EYA9ALqsKFOfTvV1KKQ gpPWcPCFseZefXHzqt744BG O6DkXvBNQqftEwpMkeeT0qF hHbDTMFZVNps0OdRFFwTKNs cn0= SPECIAL STUDIES (test s3pyiDZbSEDelQO9WpGiPCL code = 3376) xl5wiz7GojDJgvXNjMFsbxO TvozTimo79cMS6vU56AJ8fJ YDaIxL6FWCrqyK9Vxy7AQFk CJLljPBiP781HLSnWXIroTg bqvs7oF43AVGgkN6gpORuTO cvruUjKYhrljGshkEvHhr6F BB7yJjhAJLyupsoRzK9YFaw PDLacjceEJf1PRqlKFRxsUG 9UDLijEFiE9AqODGeIB4esa e7WKB5LBnxLEIjByU5BYQsu MLxHSHmrRvjVCuqw582SLU2 SbKbUHNizxWloYphsZ3bTfX cZnMyMlxjZjEgVGhlIGludG FlnZHdeNG7sX0gDS8uQQItr WHeA5JvJGVqjrNbbIToBMC9 rLMaqHImZW4uUOufpMTwt5j ha6NoX2njhMdpiXS6EW8rUW CvTIBnFVelz0OcbE9kPxgnC QNwD3MqDJMIT3LRLRLnEKDT Rp9ZUeZBRxRhQkNSRj3bIHv NUywgQUZCXHBhclxwYXJkXG TiAXKIg079un3eDTQbrYPng oXNzIYxfS0mBBncRJgyPNlw cWCyARpdu1laLWEdx6e3rTE vOAPdeoGnq5muYWuswyTeAD EuxQCrvKPsZCXhs90uYOazu VicsPmfASSci5OypEnsj9Tl EmZsMGlww2ViL99enVFzwZJ rwExcZPMiszQyUBCtk84pa3 qiMVGxBmP2cIMbeXP7qZLgj KHfk0UuvJibFNQqm9gyUDOh zs0uavygrBOfl5VwvF0uubz pQYcomXVlsuZrNDTqt3i6sW EyODIbWJGlNItfdSx4NWAto 143ui5szxT2fGYzKZX9ZDzd YWJsZSBhcmUgZXZhbHVhdGV iXRDlwpCkBYPwnsFRnS44vl 6xaGI7c0KvCW3cr3CeyNT2Q WNobmljYWwgdGVzdGluZyB3 IWGigEIfLg4wyFPeKBM2ZKO agJvlhuBMiL6rTXYtIJi9HL BmYqCwBpcagzDRSAIbQ4MgC JIvvhVcejrmEZI1cS8zk7q4 EBuaPm0kNFBdxanri7mvoqF whODjs6ZzIPWqsbXqd8YwVV LoypEmjJOpAAJltpMiln1vc fKsKFLzSDZhL9MloqszbIvb quW1HQQbVKTsxNTzeAxxPVA qZLd2LPwhiuGeh8ZbYfVvri YwrIJqveHuSU1hGGGnlBFdx cJmJXL6KUWyLYSLYdPwEOWf f2NdJM1qPZIbyPkaSEDpxC0 pl2TySEZzy80mXMPmJGTLQB EgaGFzIGRldGVybWluZWQgd GaehXKiuHDyPJEvOWGxSX7n SKAhmcTkqGWqe7UqkGKswwK wh8QanrGxKSAlUJN4MiSJqD IfjBNcgNBuwgL8d1YtLSAji yNxqTywoZJkfKAuqJSwi4Zn di2bYYSzk1boaZzgAD5koLN iZSByZWdhcmRlZCBhcyBpbn Gfo9XaY2V9pK8pUNnzr1IfG m1jIKXrf0WmxjWqRaPCkEdh KMyfIb6wIXTzvnjfsUIqN0N ydGlmaWVkIHVuZGVyIHRoZS AEdOtsyAIfyRBISUPibiA0w 5X8MXwfgGYagqAqTJ16AOMy CV5nmJMevKXwy6KsBVe5XHY nC2vUZX67BXmuNFQltUYvlR ubyEQoUSLbDCDrfeDmro8uy GuhrNWfc50rdWW2hEW4HSXi dU8nC3HtRFknHr7kXXZhxtn ccMBnwXwlRa1gqYTfdV== Gross assessment was [facility] performed at ([facility], code = 2777) Department of Pathology, [address] [place] [address], Technical component [facility] was performed at ([facility], code = 2778) Department of Pathology, [address] [place] [address], Professional component [facility] was performed at ([facility], code = 2779) Department of Pathology, [address] [place] [address], [facility] [id number] 15:29:08 Test Item Value Reference Range Interpretation Comments Case Report (test code Surgical Pathology = 104) Report Case: [id number] Authorizing Provider: Logan Russo MD Collected: 06/18/2021 11:41 AM Ordering Location: [facility] Received: 06/19/2021 03:44 PM PERIOPERATIVE SERVICES Pathologist: Tom Paige MD Specimen: Mass, MITRAL VALVE MASS- for MICROBIOLOGY then pls send to Pathology DIAGNOSIS (test code = [id number] 3220) uZzEwMzNcZnRuYmpcdWMxIH tccnRmMVxlcGljOTYwMVxhb hOtIPLcwVYcZ8FvvhkvURqi TT9kLE8obCqgjEXfsPVcSPV oCpZpi1pss518pFYwz6nbNU QTogeeyEo2dFghN33tn4P9Y ujxO93wcZRrFXH8LFSxWIQg wTYmSCCfEBX2TSWevGZeC7k hJOXgYH3pjohtYIqqFNzwZX GlqNJ9CNBddLQvM3PwVACbP EsuTTBeqll7VqDrBf9bwWCb eTcyMFxwYXJkXHBsYWluXGZ oXeTwZI1pQZVCEkPcPV6KAG JBTCBWQUxWRSwgREVCUklER O1ZSrVtJT0AGRBQAPFQQdoh cGFyIEZJQlJJTiwgQUNVVEU bUQ2ZXZZOSOMZQ3CUIFYCB8 JOT8KXPOSKQfIaU5WBL4hTZ FJCWWkZTg4ujZIdLWTVHXYT JEjlO1ODPD9OVWXAEzJERcE EG9FPH5QZNF3VS8SBNRISUh ECGM1PGX3EQIVZZHOERwXHD SDSPbEUV9rUJ9juJKybVGVz F91DKgQPRRFSD96vJ2nMPDF UNFSMR0NOZ8sRG3fRJEryW2 ICXUfSRaNCHwUZMWFOZN8DZ kXXGS0lLMIvlw93YSX6QpAa v7O5IVG2NVLmXDEkj0tnMGB mbGFuZzEwMzNcZnRuYmpcdW FsKCKbObZqg3crm522lGZsa 3qqEIDdViJ6sWPfEDKqhJUp H669VFHtCCqry2sls3NqPZH frFItw8W6CONRybryhJo7mJ mrU50og6X2NvthR0szQCSyY RGrE2ZgFK8sXFPcIgy3ZWG5 WLQ9XGXrHXQvK3FxAW5sBYR mqGYkQKn7m7kjaWvlHSBlBL K9c0ynVXfaqoCiAB2hjf5or Rn4k6oqulFhYERpFGEzsOCU DIXtW2MuyDegNi5opVe4rPq zNvjmBAY1Cwe8SE2kct86xg c1vXvrZOPgwdxoYmA5INwzW VOdyybdOCx0DDdjSBBmhMC4 EKZbyEZiY7RqWTQoIU6flso 6ZHI3IQtzAHDlQuU8TSKlyE LcGMFyfKfgWDxjp626KBQ9V aQdCY5aZ5Btk6J5pG4woNCy LXOfuXZzTaQuHDQqqs7ubVM bFTkbc4OiWEC6niM0gOBxoK KuWYLdXzV8UUmlWV7ztb13E XQrFBY2rt2zxTEzvHmslsUt mEOkBFbeY5GvXCLzl945ECK lY6IiYVWop3P6wmRcLnNwSZ EklKR8acU1ENMgYD6dynlyh 7neDTreKIstAQXnkfG0llZ2 HUKfrRAjQ1MkhK5yBJOqSR1 iqhqrz3niSQU0SEsyNGIgQK G4HiWgDVGqd1Lqyok7XtTfj 9KjhQNnOMxhO41yu116XXBw taNuB1qzyFIdfqjhyPOssjj hJOfiluT0JVYiEAshcoqlGL HiWHlvR3llUaGsVVQnrUotS Eqbm3YiVGKdDFBnYjAuxYWl DNWmJmv9ZBGyxVVvDBNgMjP nZ2ucnsxpQjGFDMZmw6iaT0 tweLFUnNLbH8ScFMebccHbU DquFKjcZlTdEFNdIS96KTI4 XMBhwj50 CPT Code(s) (test code v7ktlXQbJBAzgAF6AoSfHKG = 3357) ma0agd9UunDGrgYYmGSelsH OgfhNnwm82sJU3sD51EC7aN XJbKmM4COGlcbQ2Tfi6ZLKe MLYkuHUkY119i3mnv5zfpcP wtFU2lYkxPLZhalciLqQ9OV zuFOOfdtuxSDh8DLglUPTux UH5NNKxySPqK0IrQFTmZO1g asy4WRQ9ADilXQWnOwR1EXQ meKFzSEXzaPjfZKexw347CG C2MtEkIDEsloJkyApviN4qY fStBTI9JLLyDLacBVwaOBIM E1fyIQQ1 CLINICAL HISTORY (test d0dgoTSiPIYucGX2JnXiDYE code = 3356) ov8uie8XbtJOquXPoENxiwB GgcpEngr24tVO8qJ55RX0nR FMbMlW0TERcopB6Ffg7BIKe BLJjaBAhE100t1zqy2dyipA ktIT4uDwbVLFkeqrmAnY3CG pcLVYwxmtfYQk0TOywRYFlz VK5ZLNxjWMvB8RuJKDnOU1k hyp8YVZ9CPrrJXTzArE5GJJ hxCWgMKBtdFetXImyd312DL W6MjIlTZWlvdIepExysU2aE oBpQTRRvdUqZ1WsZPc2jYAs cGFyfQ== SPECIMEN SOURCE (test d8afxOQvAQTuoTX1VxQvFUP code = 3377) pu0gnh2HfvICeuSCqHSsnqK VywsNguf59lBX7iW20FS7zF TLrGhO1ZANsjnL0Jpm5BPKg XMWcrTRoP607h9nkn8rggdW tbTF5zHszVINyegbiWyX7XN zzFRQzcmssATp4FVjbISXro MO8FAOohKWrC4SsRVWxRX8n fmp4EWX4LUcgATDwVmX7JLW wxRFlEAGpnVmaTHhko700CS O8JtJaCGDlofAhaEmozW5hB nMyMCBNaXRyYWwgdmFsdmVc cGFyfQ== GROSS DESCRIPTION x2erdGDzAKTuqKMhBeXwFGH (test code = 3366) jSYJsm0qlGRTfaLIgTfFkOl NcZnRuYmpcdWMxXGRlZmYwe 0dan497lGIeu5ixPNEsXgY4 dDHsSTArtPSqB424AGRkZHq td7hua5AgVKWxyYTpo9O7LB TChsnovEl8nNgsL11vy3J7N krqN4zbUCFvDTYuP5AoMY9t DKDuZcb8IBL0UDN3YLCaINB gW3FgVC2yOECpoHPfPRx6u8 qwxMzjPTHgTWB3y9vyVZety fJfRF7sbd7tyPs7n3nzcrLw CRDtOMTsdESAIRXuP9CoeGo fWk3yuTa5eYvkBrxxBXV4Qu k8MT8znb00fca7lOhhZAZxm gtdJvJ9ANruUWGozattCKm9 MFxtYXJnbDcyMFxtYXJncjc yMFxtYXJndDcyMFxtYXJnYj pnLYkqKPCsWWQ7WMzou929Z PX5LJmvg0ele2pxeSMwRkv1 KCViRbYrXtaaRDefi8Dkc7m cYFKtrz2kTZA2qKTwnVhwt9 C2cAYxBNRxiJSpxaXkKMPjX fQ8DHbeBY2cbl08UTVuEZW9 gv2jnKAddVtnrpGcnEPqWQx aK0CsCUNwy410LMSgT5UiJI Ndx7A1duVfJnEuFZAcxYS6a rZ3RBUnMSp8gVTkyqU9fiZz wEMqS1ingX34ZmLrcWUdG4D wbC77YyAllGGtT7YyeB98Ka JghKRmP4SylW33WsQbtHJrX HTqpJQpCq2peIGucJGqq2Xi iSGlRLzhJ03kl978MJXsxwI kE5xyvQZxzwqpuBGvplveWR lttpT3YLZvFDSaUYbvXVXuK GZzMjBcbGFuZzEwMzNcaGlj iRudNKccDpZzKGFaCHboT2w cZjBcZnMyMCBBLiAgUmVjZW t8WUKxhL2wMm7ujFFakB5ri NClXBiuUPG9aIGxMJVxSAFn YHCgSH32N0YssU2mh4BlRDF xh01lPJ4bHXGylDCoFLrgke FsdmUgbWFzcyIgaXMgYSAxL wNkA86xfK8suTQcE0AyVLG4 IDAuMyBjbSBpbiBkaWFtZXR vieN6QR7imUmzhcM5cWFojR AfYFyspJCqIFthFNG8Ky3ai VAkGRZsvwT7l7MvELngIOHh n7IwxCShMQVsHjobVJFlgPN fQTSrepRxdAawnC9cQyZpQa MyNFxwbGFpblxmMVxmczIwX MpoopwuLDPjFIjvR8nlLpDe JNRmoVuwQSbev1ZlUVCuGSN nYuAmAPHeAEMfc9dvUH89PE xwbGFpblxmMFxmczIwXGxhb scmXKEtCTqsT7ixUhAwFLNd cWprDXrqg3LnSBJfXEAzDfI ccGFyfQ== MICROSCOPIC g2sedGWcMVYdcDP1EeFfNPS DESCRIPTION (test code mt8hij2TztKWteUCfTRiqqE = 3371) MjgnXpnn19pMA3pJ54GR2tU QIrMdQ7CTIpxaC4Ada4MJQe KAEgoGTfL646e4zhn1yecaB fqRL3xJidALGpvqesIkO7ZC fcIRYkeqmnZGa0KBbwEKHfy CT7RPVqbCZdH6MfVOUzAI5z gbd6AYN6JWsaCZSdYkY9SDO lsZAnDLLdmJjrCWmtp109EZ R1WwShMZOntbPqeFdieZ8pX cHxHFLLNUGsu8SbBPVpFJOg cn0= SPECIAL STUDIES (test c4heaGWbSVAisDQ3UoOpICL code = 3376) jk1nmp8LuoQMvsDNmQAynhO BucdBpfi22kVU9qZ88OJ7sH CMvGhO7XJWwdlG7Rgw2XBOe CIBavTPpM097LZBfSANmjMg fsqb4kO89YPOqdF2xiBVaWI gyaeMqGAgdhtRtszAcFao6Z GF0xPkwLWRcfpwvPxH4FLjm TRNlwlpcFFb9BIguIHJkbWR 5YJNalPZaH4LaDAZpOE3exl p9NPO1ATuiWLEbMtE7ACLji DXuKJDtkSyuNNebc689UUB4 NtWkMXKnajOcgSjdfQ9mSkA cZnMyMlxjZjEgVGhlIGludG QtgYWobVF6uH4yOM3uFHJth WXoX1PuGQPkcmGlcNJfXEQ7 gTJrjGQoFE9pTDuffEIcm0f ed5CnF0yycQvodMO3GB5lLJ MtYBEoGYzem7BpcU6vVeifN IYzO8VtTYBQW4OQKNSlEMOE Fk9TKnXCJtIiZhPXYu5bGSe NUywgQUZCXHBhclxwYXJkXG KmNGMDk665lv8aKTNwkRJok aPRyQGtgP9wILiiYNhyFYoy iBNvWVtlj7odBAUgu2l7aTZ kLHKyadTwz1oqZRalzsQySS CcaDLktUBrUTFmi32cQTflh TbcuJlsDJBpd3OtqCxez7Im HqDsPYsix6XaX00edXMysOB nfWjbPBRafwTkJHLxy11pw7 gjFVUgCbJ2nYEnuZT5lTBcb OLhd0XvuYwqFQLuy8hpWVJf ym9knsgbgYRal7OscW5xjrt aCYfquDWrnxFcMCGrg0w6sY WoORKbSDWgLZqprNf9PFHoj 671eh6ykmY6aSBpGVG3FXic YWJsZSBhcmUgZXZhbHVhdGV uNPXvyzOzPRModpPBkM41ms 7ofCR2f3QoAR8ge5XtnRD9D WNobmljYWwgdGVzdGluZyB3 CJAslXGgIi5aiHFgIIC0JZM fhTuhbtPNxP4bRYLiFZw6VC QkFcEqGvnvjbVEGBFcB1SsZ QSchlWdtgldXYH3fR3wt9r7 SPgxBg8vCEFqciazu9nbzqF crXReo6TqXVEretZzx5BqKC HimwXmiWZnFXNmqhSgmb3wu zCtJIIxOBZpC6UwqupnpAyo ioG2YYEpBPWtdMPurCcbMTF aJQe5FDtpxoWdy3EgCcYsgx UjeNFotxRxLU5bVBCvaBUte zNsBYZ4FKGoVLVUAnIeSKBc x4ZsRY4iCSFiaMrsGQQvrP3 jm8BmCSYtg94oJUKlYSJCLN EgaGFzIGRldGVybWluZWQgd PzabOZxvOIzSYZkMQYhPQ6t PHLuutAqxWBui2XxfRUssjQ gc4RvnuPrIOJpRIJ5XdZUlL NkhQXbpOLgjqG5z2OjOHBdv sNzcEunyWXhyLOgaYKnd6Aa ki0dUVJwi3hkdSroOF1jmQY iZSByZWdhcmRlZCBhcyBpbn Lym1EuE9I0pO6xLLepq2LkM d5vSUEhe5OmqxZpBhHDoVcl CEetZb4hEURxgznenPSxY0F ydGlmaWVkIHVuZGVyIHRoZS BRkTcdoADynJOGPHUghbV0q 2R4STncyLXbpjXyRK73GXXz HL3wwPZszJMkj8ArCTj3USD yG7jZVP09ODxeOUYtwMUggL rjuIInKGJwPSWwdzXgog0at XcduCHpq28wrDT3bCR0HFAk dK8iY9TvZPcvKl7iYXKrwtr jaSEmyOvgBh3fpWVzlB== Gross assessment was [facility] performed at ([facility], code = 2777) Department of Pathology, [address] [place] [address], Technical component [facility] was performed at ([facility], code = 2778) Department of Pathology, [address] [place], [place] [address], Professional component [facility] was performed at ([facility], code = 2779) Department of Pathology, [address] [place] [address], [facility] [id number] 15:29:08 Test Item Value Reference Range Interpretation Comments Case Report (test code Surgical Pathology = 104) Report Case: [id number] Authorizing Provider: Logan Russo MD Collected: 06/18/2021 11:41 AM Ordering Location: [facility] Received: 06/19/2021 03:44 PM PERIOPERATIVE SERVICES Pathologist: Tom Paige MD Specimen: Mass, MITRAL VALVE MASS- for MICROBIOLOGY then pls send to Pathology DIAGNOSIS (test code = [id number] 3220) uZzEwMzNcZnRuYmpcdWMxIH tccnRmMVxlcGljOTYwMVxhb iOcKYOzmZJiV7WbdxifIHey CZ2qNY3hwQvuqSMsdVMtIXL sImUjp1abs782gHThm7qyJM EVeneufGa6pAgrZ03tt5B7O thgU39opOGoAYA4EJSiOAWv cXScZVHyMUP6BFAwoTJcL8o sCOIiBE4pwvoxHPwaAZdwDF RsxKY7CBGqiSWxS2YyOIAtN VmaHCLalqh2CcOqJp7ajDNj eTcyMFxwYXJkXHBsYWluXGZ xBcXjNK9yMAUOSeNhGG1PBZ JBTCBWQUxWRSwgREVCUklER O5YDmHgER3HGNUCULOUNwbh cGFyIEZJQlJJTiwgQUNVVEU wRZ7TQOMTCLLRU9OUETUOQ7 CAY3TAXEECTcWdX6FZD1qKI WVOTMcJUt8zeNPiMEFOGAXN SWwtF9PAOA3PAKQVUnBXVfC XF4CCD5AIOV5RT0NGQCTMJs DNHM6QPI9SMUAIEBDXMgOXY QHVJrQVR3xNI3ztXKrhWQUu K90LJpZAJQYIY49yL9cFOTM TIWJAN0MXC0rEB4kZAYktZ5 ZHGFaIIpAWKkEJKDRTWH8VQ uDOLP8gRYPvwh71IKQ8JwRa s2U2YPZ9XKMfPMBbe6gmBNT mbGFuZzEwMzNcZnRuYmpcdW AuSOLcBqZtf6usj985sJLqt 5lxGKWvYoD2lDIrCCYujVMc O227RMRhKCwbk1uvu8GwREV yhAUfq2O4UCGGezmxmAx4nP nfN91xj7B4CudcV0bnUBYeW ELwV6FeUC1qAYBkZpo9GPB4 UCT3RFQiUWKtF6RrMV9nBGW zmHWiLLy7e8albGrfCOGtDV H2k7kmRYhyxlMqUP6krd9wg Dp3i3elvoClGJZmTTTcjLOO PKQfS8UojTvaIo6czXh5zOj kNdamJAC9Snq1IR0beh97jf h2vEvvFRMycbjsBuT3PNwzU EIazuxsUZd4AKdnNIZqqDA9 CIKyuSNfK6AvGEXyJI3sbtg 5NEA5HUotLCDrZjN1KEVfcG RjGLDsjPpsTLfqk530YFX6K iCtVJ2iD5Nqd3T4vG1xwWQo IIDmuVOgMnSyGUYnpg1bvLP mDMamx2MoPDE7ldB9yZFgqS QqRIXnXmQ7ADppLB7toj69U BVfGOF0jm6tnMPsoSxyymDa hQTxBGryX6EhPXPuc583AEY xT8IrMZQcu9K7vmNlLhBjHP KliXF6fgH1CMFcFQ4qaozus 1dfDMmuMGepFEMftkM4scV5 HDZcaBWtN0HktR6zOYMkEO2 rmdipn4ilXOZ0LYteNVWhLR G2TbAtENXjy0Zxvbo4QpBje 5WriJElNKebE53xm536USXb fuFcV6cpgLPyrinwaLNlwmc iUYidgcH8ERYbFMvvcpauCD RpQSaxQ7pyGwGcVKNlmSzuD Eynr8DkGDRwHLImPaXxpKEf STXbYqr9PCJtkNJiWTBgAoI vI3fhtcpjXqQZOXDec0grH5 dgsVJUtNBxM3RhHLrumgQyX QutZBkoXwTzUDBpIS37MYR8 NXXnzb71 CPT Code(s) (test code i4rebKPoUSLzsCW4MfRjHVP = 3357) ay2myb8KyaFMrjQOhSBregF ZqrnCmuj94gCE0fH80AG6pT CZvNoN5IDLvlyZ7Xls9JPRg HXLcaTEgE159m3qot5cfkjV yuHY3gFoaFTZasezuIcK5OA qbMNNjnbgaZTp7TCjzCSIfo MO9DIYzrUXaF9RuZUAxGZ4l zgg9DZM1YNvxGRGeNdH2HBZ pdLViWAYxuMkfYJiqe588MH L5JkXcSGHuepOdlKareY1aD iVcRTN7WWUoHXpfQSqpNYGI N4wqKEY6 CLINICAL HISTORY (test l3wahCKgVQVddBY2OcTzWYJ code = 3356) ra7vur1YrsKHdvRUwLDmiiL NqgzGwwm36yUE7cI98AJ7iZ YMnKbZ1QHWrkcG3Ohf1BIOd IAMzzPOiC949w1wbe0rllbY tyPB6aRfrIJSmajcvLjL6AD xpVIWdnckrQQs7AZpaJACla FO2BBRntEVoS4KwPRGaCQ5q elb9TFQ9AHdnMESbTdR4FIP aqQQcCHTazHgzTBjlb823YS H7BpDpTELstnCxoOtpxE1eO wOnJSYLquLzI4VdJVm4vANp cGFyfQ== SPECIMEN SOURCE (test y9xptBEsWLMnpLH4WeIzESC code = 3377) pe0aiw6SmcFNruDMvKDxgkG DdeyKmzv66tPU5vK74JQ8fW IUpUeL1WJRaoeN6Opk8JCXm MRZmeZFwI914d8lus7ztyvZ cfSZ2uJeyYZPjicnbFwF3HW lrMHFlzaedSXe8XBxfWXUgs PC7TSKqbQEkG9JbMBAqHN1z upa4BMD9RWffBIBtFjT8CKE vaKHsZGYnaXxyWZxgf397TZ T5AuCoFIMmeoHmvBqmbG8pM nMyMCBNaXRyYWwgdmFsdmVc cGFyfQ== GROSS DESCRIPTION l9jujPZbPTIddDCkQrGbQNU (test code = 3366) rBNTba2arIZNobIWcHtMuRy NcZnRuYmpcdWMxXGRlZmYwe 2vmc340qGDte1inZQVkWxW3 dRChZFViyBDzG866BJSzRRw sm9god1RbIBJdmZDjw5S1YC VCkmehmJj3yAvmS50kp1J0G eswL0ceDZAkJCJgN1TwMJ0d DGTqVyx4HFE5BZP8QDLjFYT zD3GpKW3yDSXpmJTkVRd1u1 sloXvvXYLdVJX1h5rvARuub hEoNO7hoi5zgNh7p2jivkSb KHPqERRrzYVCCJByZ8UscLa kNi5iyMl6fBeiPeixLHD9Xb c5XB0leb03tgv6fJxzTIHtj ozwEvP7NSsjDZGindjkRZc3 MFxtYXJnbDcyMFxtYXJncjc yMFxtYXJndDcyMFxtYXJnYj muSOvcXYVsYLN0JCrpm603W YW1JXpgf0fay7rkhCHiXpc4 GYJtVmMtGfucOTibm0Mqv8y xSUGcls1tYZW4sOXxjPmlq0 G5yHYzVJUawRRufwMeCAHmT kQ8GIzpBT6trg22DKZvGCP7 qo6nkQSbvTjxhtIgqKOuNOu iK3IeCCDgg903AXEiP9FtZF Ctd6I7qgBpApGoXIUdbYF0a nK8HPUaCUe7wYWyckQ4jtLa pDQrF9uriB82KyGisOPhX3P ggP40JwQtmOTfF0SdlC66Ow DzsSToL5HqpQ89TyHelFDiB POzqJFqFd9jpANosREyy5Ln kGRoWSnjS87ix667SGNpcpX yH9rqbBPrxgzorSZozjlxNM wmdvA4HXHfOLTeICdtTMLjN GZzMjBcbGFuZzEwMzNcaGlj gKzdOPudAkBnNBPsAYpcE6y cZjBcZnMyMCBBLiAgUmVjZW w4GNEwgS7iZk2fgHXpnY6dn ZUsPBkkOFU1rILfPIEzDGQu FYNeBE13T5ZcdQ3nt4EdUFL kw53cRC6kFDDmfZYzLMvjxt FsdmUgbWFzcyIgaXMgYSAxL cGiW33zmS1jyCHoT1YvZDR6 IDAuMyBjbSBpbiBkaWFtZXR bnmS0TT0biTsyvdH6fTKgyE UxTPbxdTQnQRjwAFM7Su2im TWqOTXnhgW0u5YvPPyrOAYx d6JtnVKhZXOgTcljRMNqrZK kYAQgnjLfuExopD3kLlWlTw MyNFxwbGFpblxmMVxmczIwX NezddmnZZWkYQpgB8ibYnVn QXXgqPdjUMrps0VyRZZdTRG gBuNoJJSsKFIty9jpPF43TM xwbGFpblxmMFxmczIwXGxhb nfiKFZxZExeJ1glCsLsWLOb cIdeWNhlx7TxREBvRYXwFyU ccGFyfQ== MICROSCOPIC n6qfqAPbUDScaRF2XlYoXBZ DESCRIPTION (test code rj7bbj9HukKUsgVFgFMmyvA = 3371) SipbMxcp90iTG8lR58GO3pR NGeTaW4QAQnhuX5Jgf9JRNr KUEdfKKkE868q2vsv1jgtgG zdCA2oNdxXLJtqxcsMqE3YY rpAJGttwzdGZf1YKazJJFyd ZR3YCKedEPjM7EyHKPxDL2h dhs8XZN4IPjeAUYwYfG9BQB bcCAnJKBsiRvaSVcin051CC M6YrFpEAOriuQzdMogrO9wT cGsNHCOGINzu8RfXJQtGNWb cn0= SPECIAL STUDIES (test n6fsaPYxNJMkoQN9FeIoFUA code = 3376) kn1hof2BvmRRgdEPnYXbhcN HuqvEdyf51eMX8rH19EI3lI ECdIcX8HWSmsjX0Wgw3VJFx TYPlzNKsY188JRPbORIxvCk xgbp1dZ04RPJziN2eyGYrED rzouCwGBbdwaKolvKwUaq3D JG8dJqgNOCptchuYhV6INbk ETDhegjaGJl9ZIacIRLsbSM 8VGBzbGMzJ4EgWPBtPF3kjx g6WVW4UHwnEKLrKvM1YNVuk MHlLJUaxFwyNSgnd762GXA5 QfNpBSQqzzQkbCmymZ5zPuG cZnMyMlxjZjEgVGhlIGludG AxbLNgoBL5wA1bFZ1uTDGqd TVdN5IlZTWemcZnaUKfDJV4 bTBsrGZnCP5mEKunzSNil3e da3SsD7mepYkaaPK1VR9rLI LfOBUwRPhmm7KvqD4bQabaS SZhL7LcSYVZY4ZCWCBaWPCT Kw3SMfATHeFbOwEAQc5tNZe NUywgQUZCXHBhclxwYXJkXG IxFMYEw164iq6fQHCdsGThu sHJzCAsgF1oOUujIHknHKmc sAYmRKrzr0uoXRIqh2t0nTG vWIYobvXwn5euHWbgssWzZV AieGNroVFxUYBri04mRLitu MxxaUbdOECmc5PcvZizr5Ux ZtGqDLbiu8XlD21zoBFkmRL crJfrBOFkuyRcXIAqs53aw2 zmHHHiShQ7uUGbpZJ4nNVah YHtz1ZwkZcoQMAgt1wtYUMa fo6brywswKUzj0LhsO9ggtm wNWlubRLfigPtVDOxa5m1jS RbCYUlDFUyPBclsZr2EDYab 887el4lzfV5eZVgKGN9NYwy YWJsZSBhcmUgZXZhbHVhdGV zDKQsiwHeTHIsfgJGsW32lx 7prGL5b3LuHX0pc6MvsBN4J WNobmljYWwgdGVzdGluZyB3 CAPpdXIuKk9fjMVoLJA3GIQ dwLscyfRJcI3mLYRmCYb2BS GfTcIyQbcgmlKAIUWwU5JwW JFglqUpsjavPQR2zQ6iz0y1 HZmeYl3pINYeptvug2vhtiL ozJMvn4SrIXNjfmUsa0IzFK FwknUyhMZaHTLuyaKnpd1kd jDsHZHhFOFsD6FsclbxaNht leX1VKEnCJCjtHZdkBozJRR uUZu9JVjdsxSfu7RnMaOmqi CcaRThmaXkEP3gPHGrnQGjb qVjXWP2DLTjJRGZAxWdHMVc h9AeZR8hIXNcaForOVIdyO6 vl8SiZWFkr79lCNDeLQNUUA EgaGFzIGRldGVybWluZWQgd PlqzDXpjGPiVEOnXKIdYO0t UGMlwrWgiJKfi1BooYWklyE sj3DuypAcFFMuIDG2UmXYjI MibUWpgESzhqJ6m5VrDDNba wQqaAoqfZQuaQYkeZCkm7Sl gc0cPPGde3cvnOduLG3zoNZ iZSByZWdhcmRlZCBhcyBpbn Jza4XsB5T0wX4bFXtnd7IzC z5uRJPvl3BkywDiUjOVhIpe TXpxWs4vRYXdggrlyLCeL5T ydGlmaWVkIHVuZGVyIHRoZS EAoIgurJQcaHDUOHQsebJ6j 0A7PZnuuREzknJqDC17OZHa SK5pfPDnyYYld7EnZRr4FSC vO0fJWF58NLrdESUmfGOfxN gajUVtGUXgGYQlfxZiim8wd ZqapAYho26iqRQ2qLM8BSYe hF9nL5PaSLbdAg9zNTWoctv buXXfvIdqMj6bgLMqqL== Gross assessment was [facility] performed at ([facility], code = 2777) Department of Pathology, [address] [place] [address], Technical component [facility] was performed at ([facility], code = 2778) Department of Pathology, [address] [place] [address], Professional component [facility] was performed at ([facility], code = 2779) Department of Pathology, [address] [place] [address], [facility] [id number] 15:29:08 Test Item Value Reference Range Interpretation Comments Case Report (test code Surgical Pathology = 104) Report Case: [id number] Authorizing Provider: Logan Russo MD Collected: 06/18/2021 11:41 AM Ordering Location: [facility] Received: 06/19/2021 03:44 PM PERIOPERATIVE SERVICES Pathologist: Tom Paige MD Specimen: Mass, MITRAL VALVE MASS- for MICROBIOLOGY then pls send to Pathology DIAGNOSIS (test code = [id number] 3220) uZzEwMzNcZnRuYmpcdWMxIH tccnRmMVxlcGljOTYwMVxhb oLdPBPeuXZdJ0KsfquiRVha XE0pHG7wuNzalBSdcWNuEAT eMsKnd4kko118lQHju1epYS BCqjnmcRq2uTjwF26id1B8O qkpH19spXDpSKF1YDQgASGq bYNhNKQgDWX7JIJusXEyE9p bJRUcQM1dtexnLDfiIKzhZT MkhIP8YJZlxIDlL0HyYDDkW VgxKYIbiry9GsPuJr9qjUEh eTcyMFxwYXJkXHBsYWluXGZ vSqWbFU8oELSOKuCxLY1MCS JBTCBWQUxWRSwgREVCUklER I9EYgUqQG1IRTTFJDFXOywh cGFyIEZJQlJJTiwgQUNVVEU kAD6TXIQELISJU6UREOPIE2 EXB8OEJRKNGlRnV6RCX3lZO VLSYHeNHa3mnAXtILDWRTCX BKtrS6RAPM2IJZVBQwAAFoI HO5QAQ2BQMD6MN7UTSNQAYx MIFA0JKO7WDAXXKKKNUjGOA NRHWdIRT2oEC7gpCUpzIQWs G54LQxWLHRIXJ74dY2lPEVN ZODWMV6WJO4vFH3sIZBquS8 KVXSxCBpUVOcKONACBGK3MX gHQJQ9tVNSunu62ZIW3LoPq c9R5CCO1JUQpCUXbb6slQRV mbGFuZzEwMzNcZnRuYmpcdW GqLLKtLuJoq1ogk774cHZrp 2jmIMRuVfG3rFSrNSObdVXr W100HSLjNHzau3rrr8HwZIO bhVGxq0P4BRUPaaxyxJl7mP egH99bj0C1SpakT5zpBJZbD QNeQ3MhQY3qSQBzQua2JJZ6 OQN3NESrAQSwL7BgBL2pLAJ unGMgTBm5t0mdsEicAVHpYC D5s3gpPIbdiwFqMM5iey5jw Vh0q3xpmaYhJDQkOQWtoGCZ LCHqO8UayExyHr7mkEs5pTe dWfeeJOE3Gwk9XM8chp55cq n9oZsvZPWuanbvUdM9TVhiY KStwqaqHKp6WCeqELZoiVV6 CYKxrHJlI4VqCMVqOC7iobi 7MWL8PFfeDJZzMvV2DKYspJ TaUBQinBqgQWrni168IWW5L wYcZE5nK6Iyu1Y5sN3fqJEj DFDhgXDaWaApSKYqht6fbLH kXClzj7NfZIJ3kgR2lJEatQ NiYUYsMvI9LPquYC0pwg75Z YBoDNQ7wc3hhUGlpLtquiAs bQCnORrfY7ClXMBaa435RTF qB1EdFMBis0P6fvUlBaKbET LpmIO6tkX1ERJeJO4xmksam 1onYPciQWfvNAWjmlW7zmX7 DSQzyHSwJ9QkwZ3nKSGdRO3 mejexa2sfOQK7EFejQUSoPD W8RqDjBTJto6Ddusb5DbGqo 9FueVFtSCkfT03av633JXUa lmUpF4yjpVGuggahaGTtewm fYJqpjeF1MKDgLVhpbvatIY HxZHevK3txIsVkZEJvwWphK Cjwt2PuJXFvXTDfBkQkuWXf JPAgVem3SETzcVRjZBXwVbU aZ6fukyruQyFJYTGqt1ptM7 wcpEDHzBAhI2RjSSpcygJnT ZixURsePzVhYMGuGS54KAI1 NQJdyt66 CPT Code(s) (test code p2csuOZcCIBiuZB0CtWjGSI = 3357) ab1nkv9LhaEXpcLVoDGzwwA QhpfEnne37wZQ8eM38ZN6eH BPbVnV9PIUtygU8Iik1XTLl VOKukZZmN918z4euz7deiiI slEE4nQtzVEJcuangWhT2DN zlVVEueuguKSm6DMslYCSvv SK7PPYtaUCeX0HtQBLnHX4a exb3USW9HHsjQTInLnR5FFT emGMbHXDphOvgYLhsw140CM M3FuWjSPGrgxVwcGiooO0uA qJzBXN5JWNoHUybSUwnLIWJ V5reWHU2 CLINICAL HISTORY (test r8pqoKPvIRVfsXF0KrEaZBB code = 3356) ke6ugk3NmaSSjqTMmOJhegU BmmoLkjl99zTV2lS81OO1nD EHzAvZ0GKVmprS9Eck9XFZr YBTjsCTvY030e2ffr3nibyW huJI5nCyaTEPeypfuBdQ5OM siOCOhalceSIh9GBilNJSyk AP2IRByzRMhD4KgVCTpFD9t ncp0LYX8PIcdGLAjSzY4GEQ psHMyXSNmeZfsPKebs015MD H5SkZbMGCzvhDjdNpsuF2nF bZlRGLWqrHzK6YnGPx1iEBf cGFyfQ== SPECIMEN SOURCE (test y5ijsTSkKKWbuLB4ZqYtRVA code = 3377) tx5afm4QkdJJtcBUeIOfnwD UgscYbei61sXE5jX97ST0aC VKyEiA6FEJmtkG1Qme3JBLt OMOwyOHxB753s8wuk4qzbdD lkSX6jKrqUXHjhtqaDjJ5VM wiIYZmvlwfONq8SFgbQBQjl CK9EODzmJPoW7CbYVBaYP3q gyp5LZF8ETxfOYObNlD6QHI lbGJnFZRqlKopZVqqa866MA L2GbPlUONrjmJqaKxyrP1vK nMyMCBNaXRyYWwgdmFsdmVc cGFyfQ== GROSS DESCRIPTION d1tjaJYiWMJrjIVaQkSyOSQ (test code = 3366) eSFNrn0erBYNfiROvNnIaJl NcZnRuYmpcdWMxXGRlZmYwe 5osk549cSWky2olYCWbRcV8 tUJiGJKfbVWtF189RRYiHHw xp0tsn2CmKNLwwSIck5A7IX EIlgsooBu3jKkiK21ax3T0T gomE4hsMBRfBLVsM8VpEL1r ZVAjDtp8QTO2CFU8ZPZrDJX zR2IhGU6yTMLlmBUqIIi1t8 kxtCpgVFLiSSR3z8xeIEgsd wJeBH1uci5etEc9x0rvliPc XKZpLUUvnGFRXKDnI2PhwRf mQi7pjEh3jOocUebgGAY0Gn n2VA4fmk37ket7sPacMEDma chjNtI9OHluFQBrajuoDCu0 MFxtYXJnbDcyMFxtYXJncjc yMFxtYXJndDcyMFxtYXJnYj azAHzuFEUhOUI8EIfdd161D NQ5PWykw2khz8hvcOKuImo5 FQVpTeGgHndgJTrzh2Ylp5g rRZGvqv6vTEA9nBBodLuot0 M9wZJsPADrgCTudqCwFGWsK fF7BFecBT8hcm21UXHsXRI5 zp6nrRJibXyqtfGabDNsRZd rW2BqOSDjd628FSIjH2PtUG Oan8W1ecSfOiTwSGOshEA6n zT2ZXGbTEl8yUZjjhL2peCr dLYfN5fgzX98QwYlbUQqB5Y alQ94XdQleKJoE8WgvK96Pa YgbMIfS8AeqN66FoQnqRPxV GSnvVJePb6ddWLkhCSeu4Tv vSMjIDcvT84eo351KMAymjR nP9cvjFJbenemeSMnemyvGS swlxC2AZCcPUXjKLirCCPeD GZzMjBcbGFuZzEwMzNcaGlj zJldJHqgBfJiYVVtGDbwV8k cZjBcZnMyMCBBLiAgUmVjZW p3CXHjjF0zMc5gvOJqbX1fh CVeHUlfEAM8bVIcVKEwJZFd ENHcGM45D9XueQ3ix1NuDLR mb37iUC9lCTLzlBHmCUoncg FsdmUgbWFzcyIgaXMgYSAxL gUyF51lpH1kiIYzT4RtHWK1 IDAuMyBjbSBpbiBkaWFtZXR lphR9ID2riUelshV4pWFziF JzPWxhnKDuYCfiBBR9Jh1fb EXoXBIsysJ0l8AsEBehRKGx d4DflAVyVHRvFmqpLYQzaQJ fEXSxcdPjhLjnlC1gDmZuSs MyNFxwbGFpblxmMVxmczIwX JxfdffuHZEuYIdjY0raYfJl XGGgcYqkLKjdd4ZuNSAkIAR mLbOcHVUkYAGka0szFG76KG xwbGFpblxmMFxmczIwXGxhb nieVYVaNRvjO4qiHkZtBICx gZyzMUhuc0KkIKWsQVTcFaI ccGFyfQ== MICROSCOPIC t9vquHQfFHImxMS8TqWwDUG DESCRIPTION (test code ab1zft4XenPElmQOmFCmoyF = 3371) TzeoNvmo12dGO4qJ20RF4kQ FMoEuV7MKUmkmR9Kkp4DYXq FTSsmOOpX630j7jjn7zeyrR jrFH1lIdoFJDuyztaAsD4RO knZABvacavVUr9WOzoQBNpd TA0YSEykHRcW5DpVAHaSA0i cnl2GID7RXslCATcEuP4DVB tqGQqCIAimBaoRPios588KD T7LtTfHNUnxoYqsNipeC3mR vGrZZNQFJUnz8QnZDWsBCOa cn0= SPECIAL STUDIES (test a5jxsEKwSUBunRT3DeAbXYS code = 3376) dx3tdw5JphNAqsESeZHzerM VkhjIscf23qVT3fN26IL4zD EHaLuS1JYEnorE9Cmr4EKFs IOWwsBVsZ134LFAeEZXxvKu pqvu4gV70ZABpaA2uyNIdVR tzarTjFUwldhOdxlYqPbz7I ME5tRyfFMIliqnkByM0OTdz MXMjnljpVYu0EWqdXPUpbIC 6CKQbpFVwK7QhQNDrRM1vrp w7RGG7FFkyATKcLdM4WEWdj VIxKCAefZwsSUdst822ZNV6 YgNuSNAvymVspMkqoZ1eByQ cZnMyMlxjZjEgVGhlIGludG VlhGUrsVJ8nB4hFU5nZNWiz NRxU3DgFLBrtiLijEJtFGO1 sVZmqJKvCY4uHTtnmPVuu5d uc0NrU1hjqElkwBH7QW6xBA JaVEVuEUdwe8YkyZ8nHlytO DCwW2EuUQUGF2QQOWRtURIE Jt2HEyXNNqIiEbILOd5pSGn NUywgQUZCXHBhclxwYXJkXG VcGRZLn903uv5tBFWxgIHtu cYKsVKfwR3wFVmkOZpyHOgb aIDoGJxum1ivKZQqr2r3rPV hRPLemnZir4uyFXgepjAqQT BmyHKihHNlABRvv18lTSnox ClmuIlwSVLqm7TdhYbmo7Ti IhRtRVfsf7TyP87kdTVygUS uxBhcJAQjiwBmKLRbt87qf9 owVPUnGoD8tWEyvYU9vYSyo QRin2HxuJhaIVPlb8rlPGAk ec2ogbqydMAbg0CcyG5quox lHUboxCIdbqTbRXWaz0j5iW FwDYLkWCKaKXwgsBh2CFZjr 120ic6vnsG5hNUeKKK8HEex YWJsZSBhcmUgZXZhbHVhdGV rDSBewpPgLJEokqLMxU21fk 9ziJV1e7LqZM5on6BoaOS1S WNobmljYWwgdGVzdGluZyB3 MZJpyLYsTc4veSVjYKD0DQL fhEkyluAPyR7gHNNlVHg1LX JpTkScFtfirfAUPQFyK2JqN PWtktDcwnscZLI0lR1zt6r7 SYptRe1rFUOmestnc0uofoJ tmVKnk3IiZFXykzRgp3OxKX JfmxVokGOcQSXtjzZghm7ph tNrBRDtGIBwK7UrusmexLcn bjZ7NYPzZOFexWMgtVwgTGY tRNk7BPwczgIeu3AbFgIods VzoJFcewJzZL1gNIWnvIBhx oWgGZG3ZKYdAVRIIdMhGSYq g9CnDN8aPEFfbGwvOGIefO4 jm5PaYYLes10fGPDmNRHKMT EgaGFzIGRldGVybWluZWQgd YcjtNGnqPZfGKIoOWEuDF3g GNOwwzSktDUxm9UwmBRuhfX bc1RwclPkMGEeVRE7LpSIjF QexRIxsBZoivG0y3KoEIHcl wGtoFohxXJhfJAueRPde0Ys ml6aRSTen3imaDnoSF3fwOE iZSByZWdhcmRlZCBhcyBpbn Tem3VvI3H2qT7mCPdtu6CcR d0nXRAog0QkigZcEmWEbBsc NXtjIh5eODJcounrxMGbQ6O ydGlmaWVkIHVuZGVyIHRoZS NUoPqbuUJhmEDBLESiymP3k 7T5YWhusARpoaSkEP74LXHz KT7nzTFmePIxu9AfVCt6DPP pE8iPDC44FNxbQGZpjRWtlN qzmVTfKWRxAKLneqMisc8bi IddhGIdm29dbDM4qST0QEDq xF1qS2HqACtyDm1rUYCjbgl reEUazAxtAu6ogIZihE== Gross assessment was [facility] performed at ([facility], code = 2777) Department of Pathology, [address] [place] [address], Technical component [facility] was performed at ([facility], code = 2778) Department of Pathology, [address] [place] [address], Professional component [facility] was performed at ([facility], code = 2779) Department of Pathology, [address] [place] [address], [facility] [id number] 15:29:08 Test Item Value Reference Range Interpretation Comments Case Report (test code Surgical Pathology = 104) Report Case: [id number] Authorizing Provider: Logan Russo MD Collected: 06/18/2021 11:41 AM Ordering Location: [facility] Received: 06/19/2021 03:44 PM PERIOPERATIVE SERVICES Pathologist: Tom Paige MD Specimen: Mass, MITRAL VALVE MASS- for MICROBIOLOGY then pls send to Pathology DIAGNOSIS (test code = [id number] 3220) uZzEwMzNcZnRuYmpcdWMxIH tccnRmMVxlcGljOTYwMVxhb dIaWNRxfZSeM2PbsjrbDVcn JH5jWR3xxQtpfZUlwPWxWCW kHeJak1jxj294rDXst2flFD COcbvgwGe3tPwcL57gv7N6Q vmxB92oxHWfCAI0ZZYcVAIz qOXfJHTeTFL3WBZbdIHiH2a yQVZdHJ0pjphwPXmjMFgfQS OaeDL5AJQdbZCpX2DeNQDwJ UocCWQiuji1ShZyVg3zlTQx eTcyMFxwYXJkXHBsYWluXGZ bKbDrNP7nTMIHMzBkJD2VED JBTCBWQUxWRSwgREVCUklER A9BAmAaYH0CHGUPDYENUgog cGFyIEZJQlJJTiwgQUNVVEU dOH0PLGBMJMCVT1THYPQEC9 AZR0JMTALDIfXyE7KIW7mJP GEXGRmSPg2lxYLrZMLLRCLV ZJeaR1SAWF2HXDSLZmILTyN MJ0NBG2JZGO0SM7SNYFRWDh LABV0CVB5BFSKEVVBEZzKRV CQUVlGQK2dLU8yuKXimNKWb U90DOjTKOTOTS66aB4jWMBF JTFUJS8GVF8gBX6vFIVeyM2 PLDIpKKbYDKhVQDRYFEU9BI mWYBK2eMAKsef77VBL7EkPo t4E9JCF3HNSfUSLsi4veTEI mbGFuZzEwMzNcZnRuYmpcdW PoQSLfBrQxk1bih599xGApc 9odXTOtDqS6fYYuYZNmgZYh S293KTFjARbbd3smn6QiPTZ stBCfs0M8YGCQrzmhhLl9lS ksW32gv0C5PoaiX1ibFPKvV HCgP4NjWG8eKPIbZas1TZQ5 EJB0ZRYwFBBwJ4ZcHM0vSZO huGTnFEf3i8yzcEqwSSIdGL F6e6kuFYambgCkZD9ctc0pf Dy8c2yhspAyFQXjXHHmoEIH WOMyH2YglNfzQr0vdSb9gSy iYtedTDT6Mkm5ZH8jpm72jk t5oCbiXPGraoheErU1YKajZ UAlsamfPVs4JLwdLMOioMS9 OUBslKHeG7DaDSKjAH8rajj 4OPR3MIpwNNYaSxJ7BQQuwE VoVILhxTywEXqpm187NVZ6Y xXtFE2dS3Dgy8H1rE0mdMQw BAHjjSIwHyGvMJMjvo9tuZP zKMphd5QxOZA7znT0bCZazQ SdIEGlQiV7DGikKU5eoj63P DFpYKV5es9zdEEcqLnvstEt eYEfAQlcH6EuEHKop032YAM lA8PaVWHix8F5muIuBwNnYR MqqZG1huI2RGNkVQ6uqecpd 4xjWOqmDLhlGGZydaB2ukQ1 IWSbqIJbG3XsgJ6uXDFmNS9 atfrjp6isTYJ2NQcvPXJdPG U5ZxIrVYXvu0Sxoeh4LfLwu 0SylGFgYCxjC41od987KEHq ijJkX1gskOFmncuisINwrjf uQOorkwM2GYRqRUhvtcvdNV GtTGlpA1kwHhWyQCNhjHybR Inel3FpIPFwLUAaZeLlqXIq SIGuXkj2JMSieQBnAZLhOvB zS6rukeswZvSYSTLnq2knW4 gquLQBkDAbM8FuZKukinVkA JdmNKlwEcPuIIKdGL56MFQ8 GLVgpr64 CPT Code(s) (test code d0frrUSgMEAncZW2JwNlBYC = 3357) cf0ewo9EblZFqqZZqHRmijI FqbpDttd84hNW4cH72AL5iK XJsAjK0FUXidsK5Wkd5KTDr WMGaxQShJ049c8vns9mwyeY vlOC9fBydURGozlypXzS7AK neVWGindlbQGd5MErlDLTox VQ9DBOypRLuU1BoCXZuTL1b vvy6KYK2BUdjVHJwQmM2GBE bfOPyRYPtuSvvJAtmo679EB U4QeDvAGUxfvWatOhxuN8zP dEjKSV1YDSjPJcmRLcxEHTR M0hiLUO1 CLINICAL HISTORY (test a6xvtQNpDWPoeXF2MeCoDQG code = 3356) ay7eti6CbgZGxdNEvLYnzvX BrhnEsya25sFV0fZ68UT3jD BLnUwD6FIGtmlN9Eym0PUOg UIPdjHUqS200a8zod4fosaE khJZ9mXqeNTZrqyxtXfM9SK vaWBEelqowCCt9ENfkSBNfw CD6HGYtqLCkK3IuNEXfTD7e ezg3QBV2XDkoBDBmHaI6QUQ tuQWoQAUvdWkgGPdkj518ZA V9XaZaYGQoxsFffZelxE4xC jOdWQGWwgDpF9CcSGv1hESm cGFyfQ== SPECIMEN SOURCE (test k0korMVmKQSxwFQ6IhTpZHX code = 3377) uz2gcd7DtaGMzdNLaMTwocK GzfdHpoi66bZR2uM59OQ9fB JYdPwD5FHZjycW3Syd4SCGg JPFgbDWcI546z8vhg4qlpdL waWK4cDxkITYcozovLtP1SH qbGFSbjdaqRJa7JLvpZZHjy SF2ZSJzvCNaW7XxBWRqSJ7k axz8AUZ1XTtxYIQfSeI1HUU lvNObENFbgCpmHHqzl577VN G5VnTpGJQkxeAgkLxdyO5bK nMyMCBNaXRyYWwgdmFsdmVc cGFyfQ== GROSS DESCRIPTION y2bjpYWuQTXscHJyQtKaNQC (test code = 3366) pJOGvw6bpLFWoaUFoKnSdGl NcZnRuYmpcdWMxXGRlZmYwe 8zvc056vDNts1neLWOuCiD9 cQIoQPXcmYRnC284KXRuQIa uw4edm3QzFHKvzDFyn5Z5VF GOqpkbsWb6qLwqR90oo4C2W tswL3ccHMJdDWWvI8EiVV2d AIYpOwd4LKW6BGI3FVNuTRA dT6LnKJ3pTEIhxOHsYPm7e8 wkgHvfMKMqRLC0h0wtEKmnf tLqKI9uwv3scFb0w9dkaqEi HTDgBEIvhBZEEYTzP7IkfRa vFv2pdWk6iEolAjiqHOD2Sd q9JS8bsg22eii7gQypLJDvh ofjMkA7QHcfXSBjzysgBYp3 MFxtYXJnbDcyMFxtYXJncjc yMFxtYXJndDcyMFxtYXJnYj epRXubYSGzEUE6UMqcw393R OP4LXoso6kju0aejJUtIaj0 GJHpUnCnItbnRVqob2Gxq9d jFVCopx7sARE5mFOvhEuxg4 T9tXOuBQYjlXEdeuBcXZWkD gR5EIfvDR1mte94CTPoOTX1 wk7irKZuyVpnypXbcZXvNOl bU7VhYRLat071WBFwV7DvQG Wit0Q5lfVsNePyXKSejMH9n fY4KXAuFGf1zGRjedE0bzGm zPFnT2kflT56OoNrcBFuJ7A fcG51MaIejDLlY9PswW19Wm YveFXyJ9SsaG67OhBojQFmV RGdnSBcDe3yaXTmcVYxi9St tZZnMGmyP25yj167ZPMjlrT fQ9emiNMeklbnwBNwklyfFU ngttI8NRUkVDYkJCvzQNMdX GZzMjBcbGFuZzEwMzNcaGlj rLehAMwwQdSiLATcSJykV3z cZjBcZnMyMCBBLiAgUmVjZW e3RCXxzQ8jSx4idNYxjF1pc LRmVKrrQYB4hWFbIVBpBEWy VGQpJL76T5AwsC4bi4RvQTF ff21uQS7vYTBhgOGkEFffgu FsdmUgbWFzcyIgaXMgYSAxL xNsM83mgX5buKZsK1ZnIFZ2 IDAuMyBjbSBpbiBkaWFtZXR eexB2PE2teFiiwvB3kHLnwU WlJCeneQBdIYquGNU7Vw6nc NStQTHpalN4z3GeSJvzHXGv x6MprZFpJMWfVfxlHPBbjOD xSOSltoMswYkdtD5dCcQzYb MyNFxwbGFpblxmMVxmczIwX KwmusspMWBuTCgeC3fiUbEo BXGstSzuTNfcp1SeBGHtYDO tIkPsFQRpWTZax6vbEM11PD xwbGFpblxmMFxmczIwXGxhb igtSTNwUDqoM7ksYqQpGDLb yIdmKMfmn1GwRKRpSBYfGaC ccGFyfQ== MICROSCOPIC h5ruhZFjXRMxeHJ0GcKkNCI DESCRIPTION (test code rr2kkf0ZwtHPkfDXkDZnkrR = 3371) TjhtOxny92zOK1aR51CA8aN FIjMcW2RSXevrO6Cgv6NCEq OOIskJLvP757v2dse8rscvI cnGA5jDegDWAhklhkHmV2XP eiLJFrxywtSKf6RLbcFLDad MM5VSGopHLfC0TgGGGgDT7z lvl5KIT8CLpePDRtNtX0CSS ffKRzVPLfqYcmMHoce026DH U4LdCgPSFhliCcnRkduE2fJ lVtZBWJUJOfq8WcKWHaZEZy cn0= SPECIAL STUDIES (test l1wxiMTzZEByiSW6OgFeFXT code = 3376) yo3vyj5LmwBNtlIXaJLmxrM UrjhZvsb33mXT5hA26UZ7lR KVwWyL6FARngnT1Wzc9XCKh ABEsnWZlS595OTTzVTWknKl zyku6xD32KOXpkO4iwDJgQZ pxjhXeHGuekdPozgBmAjv1S VP2oAlhSUMmxoulJuN8EFju YRVqsbehPMf3WYteQWKhaMB 5CMVdeBZyW4BeFPFsNG5rix m3GLF0XZpdOZBeIhE4NFEtm ONaDTAknKgaBPuot265YLC9 HvKbGASaptNjjOyipD4tYyV cZnMyMlxjZjEgVGhlIGludG FjmALbwWR8nR0xOO0cMXAbj RXxL5QtTZGlxxNekGVzGRJ9 pWHokTWoIO5kVJzbrHAje1l pt9GhL4xffPlzwSJ9AW3pMC RzVBQePEnlz2KwfA0gGkbpO LUdX5AuZSNNE0WSBQRtKCPU Xk5EPvKHRdKjFjTJGb5lFVv NUywgQUZCXHBhclxwYXJkXG TsFZETg375oa1wKEIiuPKqb pWGdMUuzD8kEMneRFucHCki aCWsUYots8aeZOCnp6i6sLJ dGULkugLxm8zwIShmsgDdVI DgaIXqtUQgOSXei52sSIvvu BoctGvgAJEnc0LmeDyjx2Dl NgYuBLxhz7JuW78yiDJxlBL mtPcpEVZcphYsJWJtl21jo8 tdUKOwJbX0bVYtcEM9rUXuf QCxh9GcgYbdWVYsa7nbGXCd qo9yzeooaWTnd7DtxB9dibt uQSkrxOBgqyMhRDHdf2z5lM ZiEACtYJTyPNkkrIg8TWYvo 668ut9zwmD7eUBePEJ0YWnd YWJsZSBhcmUgZXZhbHVhdGV bCKTcjtKwCYJsahIVlS59zg 3hsZX5v6EiDP2ci1SpgCW9U WNobmljYWwgdGVzdGluZyB3 GRXknFBaXy5xrLRcQTP3DRG djSpvmuPOaV3uHARlAXa1DN RtUuMiTdiwaiFEIGXdZ5TmW JItcbMikybyXWS9cK0sk3o7 BJijJq3wUYJxuvibz6awquJ ayGVep1XeVXPstcVny1WmQR RghqApkATfPCXsjrVtot1eb eEmHWBwJODoK7KmczawdIhm boQ7HPFuBESsoMCxmThbRQH tBJy7SAlzgoDaz5SjKcRqxq MzgMDpxyHqWL0eMBJssFExz tEnRSN0AKLoQCGUNhPnSAKb q7UtFE7qOVThjMufDDEcaI5 rr8BaXYQgp56oHIEaMFCAKN EgaGFzIGRldGVybWluZWQgd XeybZZbvURpSJSxSYIpXQ3w OMKnikFdpQImv8KnkWUwvwE yd9FiiqYnQCUeKNM8AkBRkX OzrTQujIJrokE9j2MqGSWxj hMyzZkguUOlaUKdzDLuy7Zx lh7iGZCdd2nkiJooIP4rxEZ iZSByZWdhcmRlZCBhcyBpbn Fgo3IrZ6S1oM9rTIygt1FnT u8rMTEzs0VlcyPvRuWIxSby XYddFn9yAHLkhaqmtAMoE0F ydGlmaWVkIHVuZGVyIHRoZS WWfHqacFTncUZEWWTgumB8j 7N3ASftuUVrocYbLB97RPUw TT5ipDJxmKMdt0YfRNz5TAX tH5iZKR18WYbvIADswRRgiN pztZPyLVXeZDSdhuBtuq8qb QojyYZab09zhJN3oEK5QKFr rJ3oL5LiZZlpOt4rFMDickt wzAAkiFifTm2ydDFjiE== Gross assessment was [facility] performed at ([facility], code = 2777) Department of Pathology, [address] [place] [address], Technical component [facility] was performed at ([facility], code = 2778) Department of Pathology, [address] [place] [id number], Professional component [facility] was performed at ([facility], code = 2779) Department of Pathology, [address] [place], [place] [address], [facility] [id number] 15:29:08 Test Item Value Reference Range Interpretation Comments Case Report (test code Surgical Pathology = 104) Report Case: [id number] Authorizing Provider: Logan Russo MD Collected: 06/18/2021 11:41 AM Ordering Location: [facility] Received: 06/19/2021 03:44 PM PERIOPERATIVE SERVICES Pathologist: Tom Paige MD Specimen: Mass, MITRAL VALVE MASS- for MICROBIOLOGY then pls send to Pathology DIAGNOSIS (test code = [id number] 3220) uZzEwMzNcZnRuYmpcdWMxIH tccnRmMVxlcGljOTYwMVxhb qMjPHFbxZMuS0UbhjshHHff NL8vGT7niGermDHswYOzACU dBiCto9gss639oVEbr4hwIF SMvcdcePg4rLhvL90lh1T8S gfrH61uqGNeBMA9IXJhEVLx tVPpZUGbIRE9HVBzjRVqE4t oTQKnOR9mcruiNNxiESzySW AduDJ4PJBdpWEbE6PoPQQjQ NurMRTjlfk7YwEaQj5riTMx eTcyMFxwYXJkXHBsYWluXGZ sYhXaYA2dTFVATfTkLW0KEO JBTCBWQUxWRSwgREVCUklER C3DQoAaBD1NPLWXNPCEYtws cGFyIEZJQlJJTiwgQUNVVEU yPA8MNXBYYYWFR3EMYWDOF3 BYT0RCQAICXgEuD6TOD5uYH DCXXFdNIf9yeXSqCBYPXSPS YXagY2PZAQ0WKQRLYvQOCzG PV0CJD6OGCB7MS9MAJVROTu CBHW8YCM0XWPAAACAFDoTVA HUFLxYBQ3hKQ8nyIZfqJEYg K03FGbKEOJXTK32mX5hLCSK MGANJF9XNU0jTJ4xRCTgsV5 VZJNmRMpYNGyNNHHBICV1QT aOXJU0kLRUraa03GKI9IvFo j6D1BGA3HZUfNPPzo4bjYTU mbGFuZzEwMzNcZnRuYmpcdW NwJZHlNvBzv9vhe031kUMgt 3reYYHaAlG9kOBxIKAosVTz I417BNWfVXnwy8jcd4ZeEDP urLXtb3B2LAOUfxsxsCd4zK vpW03jb8K1FthuF1dbLQUjY YYfA6PbMN2xTEVsHfh3BWI0 YJA2IBAhZTAnT5WxHA4iOPE gvUXqCKi7c1nmrLgkIFOmEU Y9s9spATtzxeYrEA6jmw1ar Tr2b3hajjXdBGYjQYRsiPDS KWUfK0EmjSjzGe9biZk3oKz qOwoqGJF2Vhw6VM6upy94ly m8rWarOWKpdwtrMaU7JAxcY FIrdnonAZf3WNyvKDVhrZV6 WZNssTMnN4QuMIHrEF3mitk 7OEE1FTsrUUHiFvP5XNWigC CqVQDxcMveOBpeg748EWS2J hPyLE0aI0Umt8B2zA7ayRZa VHUolMRaSyFiFCJtqv2qzMW lTOxgu9FkUXB0hkD7mDHqzP VfIHLjZbG5UTfdZJ8zfo75G IDoIEF4xp8ygTWsmSqaeyAk tQExFOfiC6FrOUVax686AGZ tG7FlMDSyg7U8erOzStKxHW PjtNM7kkQ4UQLbOE7znnxsb 3iuCTqoJZccTIJoboC2iiY9 PDOkjLUwJ0IemF9fLCBcOR4 pjeawz0axDQW1KSwbVMBcHR L0XxVnGEYge9Pmobw4GhZax 9NpkDJzTBzlN14rp719HJBf lyDjQ9rhuAFbldmadYFadfd qIFnykbJ2KLNwSNrfsaokYL RtSCxvY8szLsIhFOXihZrzT Qbce0IpTGNgKLOpYsJmxXBe TVCsNxl0PFYylDIaYQEhKsO oW8jgixzvTaVYFTNqw7ruR8 iiiDOJsPFmY7WyWLtresYgU NypHIhxCiJxLALnCO30EFS6 LYLbal16 CPT Code(s) (test code q9hhrUNxNXUejGD0WnAoYTR = 3357) za3kgn6IadWRwdNWzMHgieX BvdtMzzj70xTT9yX31GG6uK ZLsIzB2FGZkkrQ6Pfo0NNTq JBJbzNWqT977m6nsf2ptysJ olKI4gMjyOGAlohfdUpY7XD lpRTAmpvpuZWh9WBqlCFRni YR1PAXjeHEkZ1VwDLUhPJ9r yrz7UQA6YRzfOBYkTpD7NEN uuIVdBCCaxPlhLZjxz055ZH N4UhXtBEJescXgnEsfkA9fX zOxAXF5HNPiSHplWNnmVCHL L2idGRO1 CLINICAL HISTORY (test k6rxgLByLCUhzXW6GzMeMYY code = 3356) bq0tlb7XdxUOukIHqBLmcmY IsmcRqrz79iOP5pI58TK2fA WLoOaO9EUNvosS2Fex4PULt MQModVSoU595b0mgx9bocaC uaUE9zQvbKKNrrzukIeG0ON gbJNUovtnsXYu7QExrKLTup PE7DFJkvRLdH4SdDETqTX6m lpp8IMX2ABwmEVUjKwL3ZXM iaQSwBNBqjKciDRkzp000JW B8VdMoSWUexdTolZezcT2dW sHxWQCHlpVmP0QiDFa3rEGf cGFyfQ== SPECIMEN SOURCE (test u8wmtCLaGTJgrSK2HeAeVHT code = 3377) nb9ugl4IkkATcbCEqYSufoP RteoIpuo78sXL8dX76ZY9uA WPyAuR2BUGjymA0Lqr8HNOq VOYvzVUcY780n6gkg8ibrpG joDC7gLwsQISjfnurVhB3IV hkLVUarijmSMz6VTczEZVma SO8SJBwnHSiA0RjPHNhVV7n ygh9JBY6BBmlUSKdOoQ3FMF olHDaYHXxnXtiUUbbn925UT U6ZmWgJDWduxDabZcgaY3qB nMyMCBNaXRyYWwgdmFsdmVc cGFyfQ== GROSS DESCRIPTION c8fdgYQeSOFwrUYsRqMnCYL (test code = 3366) vVLExw9otAIBgcWAyRhNgRg NcZnRuYmpcdWMxXGRlZmYwe 6fhv339hINos0sxAYKnYmK3 eHEmKZLhsWRdR102LPWuITk yw1bdr8HnYFFgzUOnp3C7VO BXdrimpHf1bHncL35ym4Y0R chqZ6csHPUeDXDyH1KfUP4h THUsNko9BGM7HRA3WNTmXNP jX1UzLN6mQBAhlJOpCCx8y0 etkHtsRSSqYDS8o8fbOLhhl qMvUE1miy1kxVw2u0qlhqSf ZLTgYWZabDDEXJWzP8ChkSn wHk9rfPe2uTssJtpzVTY5Rc g7JI2yws62hon1hDauXVOhg clzGlW9ILxwSADkvvjbDDt1 MFxtYXJnbDcyMFxtYXJncjc yMFxtYXJndDcyMFxtYXJnYj nkQIrmEHXtEBG4TSjtn765D FQ3ZFpru2xbo8wmfDKuQgd7 QKMuHdCqViszHNstf9Gsd6n xEULxjn3iYLP1hSLmaMiws1 C7uABrAVTnwZRpkjAqMQOiX gS1KPmiZS6bgo84ALJdJSS0 xn0ovDWtpIywdaCxsJAbLIz cB6LaYLWcv373BCWvM1HrTT Fzh2W3fcAjOoMaQKWrrLL6l zE8YMLePUm3rHIncxX4pqTz xGQwI3pkuS08JtHwpCOiH1B duO92BpYznNGiP9FpyY61Nw GnnKNnV3HbhJ68LjUcfSVxQ AVetQLuYv6ngZSxwPFjj7Wd zQZdRWfyC48jv524KOPjutG zO6rthXCbazdxgDGwhmgvLP ztzzF4XDTgUPHzIAbzRQYzO GZzMjBcbGFuZzEwMzNcaGlj uOnpHTxaCsWuXPUnMQdlG3h cZjBcZnMyMCBBLiAgUmVjZW g7AZNizO0zZs8asYFudM7al OUhMChwDUY2xPEsNYFgBXIo UTZrWL50I6EpwP6fl6AsKWM nz78aYX3xDSJgtCLiCYzaun FsdmUgbWFzcyIgaXMgYSAxL bYsB09jaY4tePQfL6NyHLW5 IDAuMyBjbSBpbiBkaWFtZXR syaV6NW6kiGtlkaU8cZYkbX RvGSdvhGObZWfjZMS7Lo1xj FBtJJNeyuG4l3XbJAhsCGBg d2OlyYRiHJFlFvmiPNPuiDZ iUGUihrDxiXhtvY3oYfYaTw MyNFxwbGFpblxmMVxmczIwX WonwpquLMWrIVjdR5pgJyEc OAOrxNnzGVgii2NbGOQvTDV yTmLnJBGfGCWfa5tjCS42XI xwbGFpblxmMFxmczIwXGxhb nmaEPIgNPjqT5jfApDvHDIv jEfcTTrkv3RjAOAjTEAdXoN ccGFyfQ== MICROSCOPIC t5kjsTFpCNHkmES3TgVhZNO DESCRIPTION (test code ju8kdo2TstZLbpXHuKIwtfZ = 3371) McxqCwnk40xHK0dR54QU5gM VJcVwD7ELXrewG3Mox3FZJi AIWbwALzB894g6dfu2gxkdK qeGK9nPakFGSmtckjHlH3UV hqRMOqtboeXUy0OHciGYGxg GL1LJIjxMBbH2YnVKRqTJ8s giu2XPL2LAtyFKBtLjU6EAK qfWMqBDSpfKxlWOgot056GS I1XhNwHRBfjgPmqPjudM1jE aNuNCZZDMDag1UhUDBaLRLj cn0= SPECIAL STUDIES (test n0agxPAeDHYpzFL9XwToCHH code = 3376) uw4lzl8YfdXZolDQxWOmdcB RrhgBkzy15iEY3oS93YO7yL MEmIwL5DEEcumM4Jth3FKXg KFXyhXTwS993PBGsEMGgtUh kkly1tD23WAJsvF7idZCjPK wtbuQfXNggqpRmfcKuDlc4R WQ4rGqsNFYnbpxdPyF6ZFjr CFWknczgOYw7SKdsLXJchUG 3CNWrrCMfF1XtWZHuZD3ecv o7DPX3XQarUQQzSqC9FPEfe NDgDYUqiWyhRZyit748PZQ7 FsGhIVHyrhZgwHygvE8tXnS cZnMyMlxjZjEgVGhlIGludG VhvXRnhBU1qM1kOM8bKRInu QXwC2RsXYXotxGroELiKRL6 eSJadAFoTP8jEEgkfDWwh9z xb3CsW0ucbStfnHC1DE2eXW DwJQUsPCfwg7CebU8jJdriR TIjB8WhFEDYO6GJGAUkYEGY Bh9NEoCJVfOeTyQVEe8lQWy NUywgQUZCXHBhclxwYXJkXG ZeOMRVy460df1uUAIuqYUcf bLQgFXpcM2xGBlxDBhnMPan cDGtULuei4qvPSWng6f1uQR oKONqtgYho9znOCfoczPhPM EebWIegTZbZRRof31aVUzkd AqpjPewLXQvd4XgzUgmo3Ht VyKzHOwdj2OoB26tiCQxiOK edQzwUGNqmgIlRCApa22el6 euRWLpQrE6zMCnuZP5sAIrs MFsx3NnzMksMPUma0ltKCAs ag5mwbhocMFsh8IahP3osqs aUGjdzJFibtHyPCHyp7s1vJ KjLATdRQTeKMmajFx9TDYsd 189ye2djuR1dWRbTHL1DDzf YWJsZSBhcmUgZXZhbHVhdGV xZYNbujRtCPUavmIKoN47hm 7miXU7f7TgAM6aa1ToaSX4B WNobmljYWwgdGVzdGluZyB3 QCUolPQhCs7nkACtLVN5BII qtBpxznVBeY7wIRInFMn6YI BtWhEvOwizfgPULBNaC1PdZ BLknaAmcitgPYG0eG7aq6g7 OWnlJj6nFJOrtrgcw5krmwK jpNMjg1BiGIUsawKax2QzXM TrhoChbRDnEOVsdmPzob5ru pXeQRWkCNZvH5BiyrboxUxb wyB9VHZnZPQzgVBwwRiuWMY lZKx7AIbaooTop6KhKmNyiq MoaRHwnhMhPY5mQEQsmRSms zBzVZC1PBTrXGGTKuBaRBMi b2MjHO1lKJKecXloBOHmxQ5 fn9IbPJNjp30tGLTpXIZTTW EgaGFzIGRldGVybWluZWQgd HficORwcWQzZJZeGNVcGI9i WKIfuwDgxOWme6ZdwMMcahP au4KmhjTaJLIaBZX9SoQXoU NmuTVwyLKimlV5k6UzQLVix eZdqBhpiBAlgVArqBOdv3Xf nm9vDNFld8tjgLpmLL8gmNE iZSByZWdhcmRlZCBhcyBpbn Fah0OxG8O5dB4oTQdeo4KwX l9yNSBck8OmicRuNnQMmYed BKtlNn4xAEIkwkhexQGfY1X ydGlmaWVkIHVuZGVyIHRoZS SZgHbxtPVkzISMVLTdudR8x 2A7SAxbpSEkpbXlIC97MZTf MM7dfGGahUTgh8OpFHl5NQZ jA7zLFK10JSvvWGUrkMJqpJ jnnGNbOPCuOJJsetLwee1xz IvvcHViw75dsBG7wKB8KCHs mN8dM7ChYGcwSd9uLQNeycp aeFNuiNxrJm7xzHIxdC== Gross assessment was [facility] performed at ([facility], code = 2777) Department of Pathology, [address] [place], [place] [address], Technical component [facility] was performed at ([facility], code = 2778) Department of Pathology, [address] [place] [address], Professional component [facility] was performed at ([facility], code = 2779) Department of Pathology, [address] [place] [address], [facility] [id number] 15:29:08 Test Item Value Reference Range Interpretation Comments Case Report (test code Surgical Pathology = 104) Report Case: [id number] Authorizing Provider: Logan Russo MD Collected: 06/18/2021 11:41 AM Ordering Location: [facility] Received: 06/19/2021 03:44 PM PERIOPERATIVE SERVICES Pathologist: Tom Paige MD Specimen: Mass, MITRAL VALVE MASS- for MICROBIOLOGY then pls send to Pathology DIAGNOSIS (test code = f7hegKPlOYPsf3iiLJNekQD 3220) uZzEwMzNcZnRuYmpcdWMxIH tccnRmMVxlcGljOTYwMVxhb eMkZDRzbNYgV3ZsmzkjUTzk MJ0vJL6cfZeliZBfnSKaQGA dIkDky9efp893wAGfo2vnSP QNtquomBg5qXmxC07sj7S7G dmsP97xlOYpGVF1MHUxKQSk aQQyFMVhWVO5LJNcyBQaL8d mICUmQK8rdazkKUdaAWveTT LvyOL5NGQqjOKuD8QdJIKcJ EonLBPamri9MqVaVw4ojEIm eTcyMFxwYXJkXHBsYWluXGZ cKfUrFT2qSXFHCtYgKF7SYT JBTCBWQUxWRSwgREVCUklER V5BQuAwGW7QHAGJRPFRTsts cGFyIEZJQlJJTiwgQUNVVEU qXR6GEWJDMVHBS7RBZMSVD1 LTX0THZKHFVeOdZ0MXW8rCW QNVYCjLZg3wzKCgPTEVCUGF JBpaP9FMPP9RIWNIQrBHIuG KX5QRY7CVES3BK8VORDZXJz DBHP3MVY0HNAUMVCXDBbGIJ CZAByBJQ3pRT2jvVXdkFYRg Z55QWrFCPECWO14lN6pWYYU OOMEOG1JLI7iBB3sHDWiqQ7 LCAYwABqNTUgJVJOHUMZ8PP mPFYU0fHJPopp76IDW0IvNs p5I1MZJ7MWVdWNDqc6afIFV mbGFuZzEwMzNcZnRuYmpcdW XnOQXlZxOle7vsh058kQPnz 1ydJJUgFkO3cIUjGIBptNYl O493MWThVZekb3tzu5WvGIX nmSFwc4L7ZICUcglcfBa4yE ljG19jr2C5PiunJ1osFXLcK WTfI1IkVO0tZNUqJlt4YRO5 LYF4LFWuLBFoA7EnST8zBZQ vyQZfPNc5z2cefFsbKRIrQY N0n4beBWxnxtSeXF8fuc0tg Mi8x1ycxlAkKFPxTHQptUKA RUNoL0LtcEpiCl6zqDb7iCc rXgfpWCZ3Wkd1JV8chd63rx z5fTbcHQItowykHuX3PZpuM ZMxqsvwGGh4YQyvYMBhbPX2 XWCbkMDvZ6HxXFRvWE1kzho 3PGC1HGaqCLYgHdN4CAAqnR ZhKUCdoAvsLSrnf538VCB7I oAhLV0xV8Uzi2G4iN4jcMEp JHDtzEYyQwIsORAnwf2enNK jGZrkx7TkLGM5qjV2yJZleD ZdYWCbTaV9URwjVF2jeq48J XQqHUI4zw3yoSAinMyhiaTh xIDvUOcsT9QbDGYrj721ERK aS2JeLSDtj2P7mpFkDqLzSL NfrYU0wuJ0DSLwIT5zvuhmr 2klHGgbFAncQLEazfG5gjY0 RDMqlIUjM1UnwR2nRMFcUK2 yzatsx7geJSO2GVykKKZnBJ Q1YzVlRDKqh7Yihqt5ZdLtr 8LelDYhECmeS94gd726IDCm szUtH4qkySLbgknumUXgktg jTHmucyZ4SFAcJCyzxbaiQN IjUNksD2tgOxXqBPOhhGhzC Xeoo3EiWDHnQHQkPuAvvYRp AJFrFra8NXJamJFdQRGiKmP lJ3pcbynoYtVISNGey8sfR7 tkvLQXzRJaD3StXGidvrBmI MhkTCyqJkVwTIJuOI36SYP5 IGSsuj56 CPT Code(s) (test code m9sfmZSkEEJpwHO4RzGuCWT = 3357) ci9kil9FhcEYmoCUtRQusoU FufmHacn44xBF6iA83ZB1wR BDlIiM3SQBzqiK2Hxx3BCEl OTVdfKSpO767j5ufs8vytjK acAV2pAkvWNDxhobdIhN5XB upBEGcjsppKUw2NXdlGEHjw MA3QGXlsHOcY0MnQRUgVC9z hub9KRX7LObgWXDaSiG8HWW soOLnYOZypZayPHzhj020YW B5WzPtIENufsQpfCrokL6fQ hJkACV8YHXvUHanQXboNWXW L0exAOO6 CLINICAL HISTORY (test a9wpaLDtOBJhhAP6KqOiALR code = 3356) nx5dmb7GouPYjqLEdITaepL GpsaYxsb73rQN8dP20FD4eI XYoVhU0ZLTjtkP7Cxh9GWIb CKAcdZJzT811q2xtg3ogxsA aeJS1rEquOILevnejUbM7CM amXJPzbdibHJj0DJkcHOEzo TM3NHQtxXHqC1XbVHPpWA3f vhq7FOH1RItvBBJhRtN9ULL pcRSeIOBgzRagXZlkg134DY C8GuKwXQChqxQrxZlaeF7jP bDcOXYWguIrG0QdPEi9jQLh cGFyfQ== SPECIMEN SOURCE (test j1zziRJpSHUzzCY5DiCgMPY code = 3377) vt2awm7UkkGFqoYKdWUfkyN SdneLkey43qKP2mZ12XZ3vV VVmIrH3EOVsedC0Nwt7ZCYu AIVxcPDuN572w8yex1pgwzD cwCQ7zYdyJIUjhlwcWcM6IU wkPSNebdxqIBk0XLzdFAUrd DB2CIWbfPRvM5JkPTKyBK3o xps0TKQ0DZfxAYUfDdR7XTR muKKbTUUnfKanWGvmj936WN M4AqTtLSGiftWetVxiyA8yL nMyMCBNaXRyYWwgdmFsdmVc cGFyfQ== GROSS DESCRIPTION p5eldOJmOOYhhYYdHrQyGLZ (test code = 3366) gILKwx8gjFBGomXUyQdGjJd NcZnRuYmpcdWMxXGRlZmYwe 3vsu171wODfp7rpUEPnRpR4 hZGcOQXfvBLrQ694BNRbDHn yg2wcm6ZaSCLzuBRtv4Y9VB KGufyfdAy5oBmsW13eb8B9Y qekL2hrOLZsDSHhL8AsLW0t UCWpEsi9SHE0QVB2QRBbQZZ uA4XrRM6sPTKtjWWkTIy1i3 jzrKjhNBGjKXZ7e2quGXlgr wIaIS7dms5wlOc0d7zuapUx AALsFQYzgBISOUVoX4MszBr tQb8mqQp6lIfvKpfmISB5Zg w4WF1yff66hdt6lOphPRZrd duhTgH7VSqaBXBvpudkSQb6 MFxtYXJnbDcyMFxtYXJncjc yMFxtYXJndDcyMFxtYXJnYj hdYNkxNRQqICM0OUpkt247H HT2NYesk3aqi6kbdTQtFmn4 TFZuYdLrCzrfFRcyq8Obg7m kFZOvxe4mYGD7sLYtbYsfp1 W1uHEdLJQmwLJvyyHgHZIlE vZ6WErwAP6zit99HSSrYVO7 ie0szDAhlJessmRvaSWqZNo bJ5OqUAZkx075FHNfZ0UlYS Cdc7K3iuBmZaBwDIPcjVS6n pZ9SJBnHZh8aCYdbyX4mgJt nDAaV8avvT06XxEwyJWwS2R wdW65UyFecLUnG8RquD26Sz NycNWgY8NwlW98RoLcpSGgE HIfcACpAe2rvGKauFYzx8Aj nONtCVnvY49af548AYObcvW dP8fjbWAjqhqevTFyveiqSZ vwvyW1KCGlALDkKHhwIMWlY GZzMjBcbGFuZzEwMzNcaGlj iCcdZAtdRuLcOMVlVGlcQ3p cZjBcZnMyMCBBLiAgUmVjZW j4SGIksG3eYe7ywDAmaJ0jk UHeWNyzUYP2fALsSVLkIPVq VPLoKC89S5DaxW2gd0CkSBS qp65qGJ1qAWRfxBIrFStjrh FsdmUgbWFzcyIgaXMgYSAxL qFhY68egC2odKTfQ2HiYSQ4 IDAuMyBjbSBpbiBkaWFtZXR vujW5BB8bnAlgesL0qTGeiM BkXVigdDIjPHkzEIA5Aq9ue EFuADIjhjC4d4XnVHzpUGLv c9BayOKfVDRoBxbsGKZvpPJ zCGVyloCijYeczD4jHiAtEa MyNFxwbGFpblxmMVxmczIwX AftzcxyPXToQIqlN0ofKmBu HAQmvIsqOKvlq3LeESXgJXX eWbNhRHAtPYUkd8tjJT29MI xwbGFpblxmMFxmczIwXGxhb icsQJWzBExaU9ahRpPiSOVi wQupGOtow3MxZAUaSVHqCeH ccGFyfQ== MICROSCOPIC o9yadWYoIDYstXF1ExMhYEC DESCRIPTION (test code xv8fjg7PfkXWhbEBnGUtdnM = 3371) YkmlDwoz75cPW5qU52GX1fR POxBhO3QSPdhtM0Mus3SEIh VAUbhVJlH862u6bfv6cvanT xlZW5qXrrIKBfqiutHsZ8GW wfUIXqnmzxMBj3MHbzHTCow WO6AHUgaLUhT1IhEESoTC6f bjn8XIT8YXbfFOWjUxV8ADW njOVtJFKiaQecWJhzj258DO G8YiIfTLJguzAvaLhyoL9oF bXcXLYDJNBpo3HvPTIzIFLr cn0= SPECIAL STUDIES (test j2nyaSLzYXUtcMB7OjFgDPT code = 3376) lx7isp4TmmIVvaLMiOKjayN MqnrQlos53zQH3sX17SA0kN QZnCfS1JXHqfzI7Mmn7QLZf DPOpwDTdG424LTBxOSBigVi gihw5zE07RZFgxT1teDPwHU bopxZiONsyaxGbkwQpKrb0E YO6yXfkRBZwapqjKzB8BWjx DIKdxcchVCy1DVopERCtjJX 7WXWsvGXdL0OqTDXeAR2wlh l5BDW4LVdvIVXbOvX1SBSsf WWpJVGfeXczTXnxj919FJA1 XsObNSEbbqVfgLlpaV9bWmE cZnMyMlxjZjEgVGhlIGludG VekBEefNP4vC2bUV9pTOQjk NWaP9EsFBUwhcHomDDuSKT2 tXKkvYSmYM7sRXbdyWYdq5l qz8LiH2hzgIxpyKG3CQ0zQF MaKXSmVFpoa9VsuW9rXsvvN SXrD6KeCYDLD0MTLOLvXHSV Dg3ORlROZpTiPiECLc8oAHr NUywgQUZCXHBhclxwYXJkXG BrIBFOc509ay4cOPEizZNyx vUOvYEuzL5aHXuwXFdlRJwn lNOaMYzov2mcJOWgb8r5wEI uFFEaxcXcw3seQZnsqkYiHM JdvPGqsUYmBLNaa33rCWugz RejmRxcNTJyp2VvuBxhu0Xi PfGuQJvvq3QcF45aaKTbeDL vuNcpINDlupSeCAEnc85tr2 xyDDUsYnC5bLVsqUZ8pMSmo DHli9ThiPweZALfz9rcUKDp hr3aflnvrAJmz4RjtQ9npkg qZLhjwFKqfxRkUXXji9c8vP CnTDSzVMIfGTlknIg9FAWyp 084ct5ijkP1yRCkEVR9HRiq YWJsZSBhcmUgZXZhbHVhdGV yXHGpmcBaTUPxuvNDyA72wp 4bcTC5j1JpTB8zd1RitBI2F WNobmljYWwgdGVzdGluZyB3 HRYheDLpUc3lgQCgXWW3MBI lrWbkplISgC8mXEMuBFm3YS IlSyEuKqhrviHZRJRdJ8ZyV JDnknVmkpnxFJX1bN4ho0l8 JJsoIe0dUWHjmeysf6pswiQ rnMYrt0OmSWXgjfOtz4TuBQ MjxcNwuGOsVIZtmdJqvc6lm zQlYXCtDQOaH4TgyywxvTwp kwD4LTQzFRAvySPeuZnxBUE oNRl8QLkdigJjq9QaYnEisb AjbXDbjxLoQU9mUNOhtNDqm kZlFFK9HCQrJBQXRqGtLNKs h0JlFM9pJWXydRaiGFAwkB6 sy7TyTKLwh04bTOUeLVLAWE EgaGFzIGRldGVybWluZWQgd WvvsDWkxCVjITVhMQLdSL3b MWTfrpMgiOAbf1CrhNOzjpU ch5OznnGiZGEhNOE1WkIYxG ScoLKbhRDdfuT6l3RbLUNlr fWqjWtagTSrmMKytHHbx0Iy fk9vNVUna8xtvJxfTY4kzEE iZSByZWdhcmRlZCBhcyBpbn Sqb1SnP3U0hI1aVJvsa5ViP l4cATZbz7UqzfPsXmTAjXes FPfxGv7dDJRxkrqjhDUyL8L ydGlmaWVkIHVuZGVyIHRoZS RGoSrawSCvuMPWBNNqeqR6j 6Z5PPpmiFWvorPoFN79HPAg CO1fzXUlsUAhz0EeHLt5DMK dL0vZTZ68MVccNOMgtDVipG fsrGNvSPDhQYAuayWqbx8wz NdtuICsk57mgGT3rPA2NVWh nQ7bG4SiAPyvBe2oVFNhyhg lrWVcwAhnVl8nmPJixU== Gross assessment was [facility] performed at ([facility], code = 2777) Department of Pathology, [address] [place], [place] [address], Technical component [facility] was performed at ([facility], code = 2778) Department of Pathology, [address] [place] [address], Professional component [facility] was performed at ([facility], code = 2779) Department of Pathology, [address] [place] [address], [facility] [id number] 12:37:44 Test Item Value Reference Range Interpretation Comments POC-GLUCOSE METER 98 mg/dL 70-110 : TESTED A T [facility] 6720 (BEAKER) (test code = [facility], 1538) [address]: Child Attendant/Techni kelle ID = [id number] for Kathleen fay (contract), [facility] POCT-GLUCOSE [id number] 08:40:16 Test Item Value Reference Range Interpretation Comments POC-GLUCOSE METER 120 mg/dL 70-110 H : TESTED A T [facility] 6720 (BEAKER) (test code = [facility], 1538) 135[address]: Child Attendant/Techni kelle ID = [id number] for Eze (contract), [facility] BASIC METABOLIC [id number] 04:46:57 Test Item Value Reference Range Interpretation [...] S NOT APPLICABLE FOR DIALYSIS PATIEN TS. Child Attendant ID - HIEN PHAMD, CHEST, 1 VIEW, NON [id number] 04:07:00Reason for exam:->post-opShould this be performed at the bedside?->Yes [facility] : 1955 Sex: FFINAL REPORT RAD, CHEST, 1 VIEW, NON DEPT INDICATION: post-op COMPARISON: Prior day's exam FINDINGS: Portable frontal view of the chest. IMPRESSION: Support Lines: Stable. Lungs and pleura: No interval consolidation or sizable effusion. No pneumothorax. Heart and mediastinum: Stable contours. Additional findings: None. Signed: Andrew Cary Verified Date/Time: 06/24/2021 04:07:26 [id number] 03:54:16 Test Item Value Reference Range Interpretation Comments PHOSPHORUS (BEAKER) (test code = 4.3 mg/dL 2.3-4.7 604) Child Attendant ID - HIEN [id number] 03:54:15 Test Item Value Reference Range Interpretation Comments MAGNESIUM (BEAKER) (test code = 2.4 mg/dL 1.6-2.6 627) Child Attendant ID - HIEN [id number] 03:40:54 Test Item Value Reference Range Interpretation Comments PARTIAL THROMBOPLASTIN TIME 40.8 seconds 22.5-36.0 H (BEAKER) (test code = 760) PROTHROMBIN TIME/[id number] 03:39:49 Test Item Value Reference Range Interpretation Comments PROTIME (BEAKER) 13.1 seconds 11.9-14.2 (test code = 759) INR (BEAKER) (test 1.01 See_Comment [Automat ed message] code = 370) The system bettermarks generated this result transmitted ref erence range: [...] WBC 0-0 (test code = 413) POCT-GLUCOSE [id number] 21:07:58 Test Item Value Reference Range Interpretation Comments POC-GLUCOSE METER 143 mg/dL 70-110 H : TESTED A T [facility] 6720 (BEAKER) (test code = [facility] [employer] [facility], 1538) 95[address]: Child Attendant/Techni kelle ID = [id number] for Sheryl Bergeron POCT-GLUCOSE [id number] 16:23:05 Test Item Value Reference Range Interpretation Comments POC-GLUCOSE METER 126 mg/dL 70-110 H : TESTED A T [facility] 6720 (BEAKER) (test code = [facility], 1538) 628[address]: Child Attendant/Techni kelle ID = [id number] for OSMANY VOGEL BASIC METABOLIC [id number] 13:28:45 Test Item Value Reference Range Interpretation [...] S NOT APPLICABLE FOR DIALYSIS PATIEN TS. Child Attendant ID - HIEN MPOCT-GLUCOSE [id number] 11:56:58 Test Item Value Reference Range Interpretation Comments POC-GLUCOSE METER 122 mg/dL 70-110 H : TESTED A T [facility] 6720 (BEAKER) (test code = [facility] [place], 1538) 78[address]: Child Attendant/Techni kelle ID = [id number] for OSMANY VOGEL 2D Echo W/Doppler(CW/PW/Color)2021-06-23 08:20:29Ejection FractionSLEH ECHO [facility] W/Doppler(CW/PW/Color)2021-06-23 08:20:29Ejection FractionSLEH ECHO HEARTLAB [facility] Echo W/Doppler(CW/PW/Color) 2021-06-23 08:20:29Ejection FractionSLEH ECHO HEARTLAB [facility] Echo W/Doppler(CW/PW/Color)2021-06-23 08:20:29Ejection FractionSLEH ECHO [facility]ARTLAB [facility] W/Doppler(CW/PW/Color)2021-06-23 08:20:29Ejection FractionSLEH ECHO HEARTLAB [facility]2D Echo W/Doppler(CW/PW/Color) 2021-06-23 08:20:29Ejection FractionSLEH ECHO [facility]ARTLAB [facility]Do[facility](CW/PW/Color)2021-06-23 08:20:29Ejection FractionSLEH ECHO HEARTLAB [facility]2D Echo W/Doppler(CW/PW/Color)2021-06-23 08:20:29Ejection FractionSLEH ECHO HEARTLAB [facility] Echo W/Doppler(CW/PW/Color) 2021-06-23 08:20:29Ejection FractionSLEH ECHO HEARTLAB [facility] W/Doppler(CW/PW/Color)2021-06-23 08:20:29Ejection FractionSLEH ECHO HEARTLAB [facility] Echo W/Doppler(CW/PW/Color)2021-06-23 08:20:29Ejection FractionSLEH ECHO HEARTLAB [facility] W/Doppler(CW/PW/Color) 2021-06-23 08:20:29Ejection FractionSLEH ECHO HEARTLAB [facility] W/Doppler(CW/PW/Color)2021-06-23 08:20:29Ejection FractionSLEH ECHO HEARTLAB [facility] W/Doppler(CW/PW/Color)2021-06-23 08:20:29Ejection FractionSLEH ECHO HEARTLAB [facility] Echo W/Doppler(CW/PW/Color) 2021-06-23 08:20:29Ejection FractionSLEH ECHO HEARTLAB [facility] Echo W/Doppler(CW/PW/Color)2021-06-23 08:20:29Ejection FractionSLEH ECHO HEARTLAB [facility] Echo W/Doppler(CW/PW/Color)2021-06-23 08:20:29Ejection FractionSLEH ECHO HEARTLAB [facility] Echo W/Doppler(CW/PW/Color) 2021-06-23 08:20:29Ejection FractionSLEH ECHO HEARTLAB [facility] CenterPO[facility] [id number] 07:43:14 Test Item Value Reference Range Interpretation Comments POC-GLUCOSE METER 111 mg/dL 70-110 H : TESTED A T [facility] 6720 (BEAKER) (test code = [facility] [place] [place], 1538) 885[address]: Child Attendant/Techni kelle ID = [id number] for OSMANY VOGEL BASIC METABOLIC [id number] 05:48:55 Test Item Value Reference Range Interpretation [...] S NOT APPLICABLE FOR DIALYSIS PATIEN TS. Child Attendant ID Bassam STANFORD [id number] 05:28:52 Test Item Value Reference Range Interpretation Comments PHOSPHORUS (BEAKER) (test code = 3.7 mg/dL 2.3-4.7 604) Child Attendant ID Bassam STANFORD [id number] 05:28:51 Test Item Value Reference Range Interpretation Comments MAGNESIUM (BEAKER) (test code = 2.2 mg/dL 1.6-2.6 627) Child Attendant ID - HIEN MRAD, CHEST, 1 VIEW, NON [id number] 05:08:00Reason for exam:->post-opShould this be performed at the bedside?->Yes [facility] : 1955 Sex: FFINAL REPORT RAD, CHEST, 1 VIEW, NON DEPT INDICATION: post-op COMPARISON: Prior day's exam FINDINGS: Portable frontal view of the chest. IMPRESSION: Support Lines: Stable. Lungs and pleura: There is improved aeration of both lungs. No new airspace consolidation. No pneumothorax. Heart and mediastinum: Stable contours. Additional findings: None. Signed: Andrew Cary VerifiedDate/Time: 06/23/2021 05:08:22 [id number] 03:01:03 Test Item Value Reference Range Interpretation Comments PARTIAL THROMBOPLASTIN TIME 35.7 seconds 22.5-36.0 (BEAKER) (test code = 760) PROTHROMBIN TIME/[id number] 03:00:01 Test Item Value Reference Range Interpretation Comments PROTIME (BEAKER) 13.3 seconds 11.9-14.2 (test code = 759) INR (BEAKER) (test 1.03 See_Comment [Automat ed message] code = 370) The system bettermarks generated this result transmitted ref erence range: [...] WBC 0-0 (test code = 413) POCT-GLUCOSE [id number] 22:23:22 Test Item Value Reference Range Interpretation Comments POC-GLUCOSE METER 146 mg/dL 70-110 H : TESTED A T [facility] 6720 (BEAKER) (test code = [place], 1538) [id number]: Child Attendant/Techni kelle ID = [id number] for CRISTINA LAM MS POCT-GLUCOSE [id number] 18:28:19 Test Item Value Reference Range Interpretation Comments POC-GLUCOSE METER 101 mg/dL 70-110 : TESTED A T [facility] 6720 (BEAKER) (test code = [facility], 1538) [address]: Child Attendant/Techni kelle ID = [id number] for Tacos rene (contract), Amb er BASIC METABOLIC [id number] 14:57:30 Test Item Value Reference Range Interpretation [...] S NOT APPLICABLE FOR DIALYSIS PATIEN TS. Child Attendant ID - AAHAMIDPOCT-GLUCOSE [id number] 12:37:53 Test Item Value Reference Range Interpretation Comments POC-GLUCOSE METER 69 mg/dL 70-110 L : TESTED A T [facility] 6720 (BEAKER) (test code = [facility], 1538) [address]: Child Attendant/Techni kelle ID = [id number] for Frances knutson (contract), Amb er Oxygen saturation, [id number] 10:49:59 Test Item Value Reference Range Interpretation Comments O2 Saturation (Measured) (test code = 79.8 % 12511-2) [facility] [id number] 10:49:59 Test Item Value Reference Range Interpretation Comments O2 Saturation (Measured) (test code = 79.8 % 14254-6) [facility], [id number] 10:49:59 Test Item Value Reference Range Interpretation Comments O2 Saturation (Measured) (test code = 79.8 % 85600-4) [facility], [id number] 10:49:59 Test Item Value Reference Range Interpretation Comments O2 Saturation (Measured) (test code = 79.8 % 00902-9) [facility], [id number] 10:49:59 Test Item Value Reference Range Interpretation Comments O2 Saturation (Measured) (test code = 79.8 % 98100-5) [facility], [id number] 10:49:59 Test Item Value Reference Range Interpretation Comments O2 Saturation (Measured) (test code = 79.8 % 19419-2) [facility], [id number] 10:49:59 Test Item Value Reference Range Interpretation Comments O2 Saturation (Measured) (test code = 79.8 % 45528-1) [facility], [id number] 10:49:59 Test Item Value Reference Range Interpretation Comments O2 Saturation (Measured) (test code = 79.8 % 85328-0) [facility], [id number] 10:49:59 Test Item Value Reference Range Interpretation Comments O2 Saturation (Measured) (test code = 79.8 % 09330-7) [facility], [id number] 10:49:59 Test Item Value Reference Range Interpretation Comments O2 Saturation (Measured) (test code = 79.8 % 52483-1) [facility], [id number] 10:49:59 Test Item Value Reference Range Interpretation Comments O2 Saturation (Measured) (test code = 79.8 % 28937-9) [facility], [id number] 10:49:59 Test Item Value Reference Range Interpretation Comments O2 Saturation (Measured) (test code = 79.8 % 12692-1) [facility], [id number] 10:49:59 Test Item Value Reference Range Interpretation Comments O2 Saturation (Measured) (test code = 79.8 % 41427-3) [facility], [id number] 10:49:59 Test Item Value Reference Range Interpretation Comments O2 Saturation (Measured) (test code = 79.8 % 19637-7) [facility], [id number] 10:49:59 Test Item Value Reference Range Interpretation Comments O2 Saturation (Measured) (test code = 79.8 % 29214-8) [facility], [id number] 10:49:59 Test Item Value Reference Range Interpretation Comments O2 Saturation (Measured) (test code = 79.8 % 24353-4) [facility], [id number] 10:49:59 Test Item Value Reference Range Interpretation Comments O2 Saturation (Measured) (test code = 79.8 % 47484-8) [facility], [id number] 10:49:59 Test Item Value Reference Range Interpretation Comments O2 Saturation (Measured) (test code = 79.8 % 21498-7) [facility] Center[facility] SATURATION, [id number] 10:49:59 Test Item Value Reference Range Interpretation Comments O2 SATURATION (MEASURED) (BEAKER) 79.8 % (test code = 1455) BASIC METABOLIC [id number] 07:15:45 Test Item Value Reference Range Interpretation [...] S NOT APPLICABLE FOR DIALYSIS PATIEN TS. Child Attendant ID - DBRAD, CHEST, 1 VIEW, NON [id number] 03:19:00Reason for exam:->post-opShould this be performed at the bedside?->Yes [facility] : 1955 Sex: FFINAL REPORT CLINICAL INDICATION: post-op Comparison: 06/21/2021 The cardiomediastinal contours are stable. The lung volumes remain low. Central pulmonary vascular congestion and bilateral parenchymal opacities are unchanged. There is no pneumothorax. Support lines are stable. Signed:Braxton Quintero MDReport Verified Date/Time: 06/22/2021 03:19:08 BASIC METABOLIC [id number] 02:00:09 Test Item Value Reference Range Interpretation [...] S NOT APPLICABLE FOR DIALYSIS PATIEN TS. Child Attendant ID - [id number] 01:57:06 Test Item Value Reference Range Interpretation Comments MAGNESIUM (BEAKER) 2.5 mg/dL 1.6-2.6 Specimen slightly (test code = 627) hemolyzed Child Attendant ID - [id number] 01:57:06 Test Item Value Reference Range Interpretation Comments PHOSPHORUS (BEAKER) 5.0 mg/dL 2.3-4.7 H Specimen slightly (test code = 604) hemolyzed Child Attendant ID - [id number] 01:54:46 Test Item Value Reference Range Interpretation Comments PARTIAL THROMBOPLASTIN TIME 37.8 seconds 22.5-36.0 H (BEAKER) (test code = 760) PROTHROMBIN TIME/[id number] 01:53:47 Test Item Value Reference Range Interpretation Comments PROTIME (BEAKER) 16.4 seconds 11.9-14.2 H (test code = 759) INR (BEAKER) (test 1.34 See_Comment [Automat ed message] code = 370) The system bettermarks generated this result transmitted ref erence range: [...] WBC 0-0 (test code = 413) POCT-GLUCOSE [id number] 21:22:08 Test Item Value Reference Range Interpretation Comments POC-GLUCOSE METER 73 mg/dL 70-110 : TESTED A T [facility] 6720 (BEAKER) (test code = [facility], 1538) [address]: Child Attendant/Techni kelle ID = [id number] for Rodríguez Rojas POCT-GLUCOSE [id number] 19:10:01 Test Item Value Reference Range Interpretation Comments POC-GLUCOSE METER 83 mg/dL 70-110 : TESTED A T [facility] 6720 (BEAKER) (test code = [facility] [employer] [facility], 1538) [address]: Child Attendant/Techni kelle ID = [id number] for HATTIE SALAZAR BASIC METABOLIC [id number] 14:08:36 Test Item Value Reference Range Interpretation [...] S NOT APPLICABLE FOR DIALYSIS PATIEN TS. Child Attendant ID - DBPOCT-GLUCOSE [id number] 13:42:11 Test Item Value Reference Range Interpretation Comments POC-GLUCOSE METER 72 mg/dL 70-110 : TESTED A T [facility] 6720 (BEAKER) (test code = [place], 1538) [address]: Child Attendant/Techni kelle ID = [id number] for Sun(contract )Katt Surgically obtained culture + gram [id number] 11:46:53 Test Item Value Reference Range Interpretation Comments Result (test code = 6463-4) No growth Gram Stain Result (test No organisms seen code = 1123) [facility] [id number] 11:46:53 Test Item Value Reference Range Interpretation Comments Result (test code = 6463-4) No growth Gram Stain Result (test No organisms seen code = 1123) [facility] + gram [id number] 11:46:53 Test Item Value Reference Range Interpretation Comments Result (test code = 6463-4) No growth Gram Stain Result (test No organisms seen code = 1123) [facility] + gram [id number] 11:46:53 Test Item Value Reference Range Interpretation Comments Result (test code = 6463-4) No growth Gram Stain Result (test No organisms seen code = 1123) [facility] + gram [id number] 11:46:53 Test Item Value Reference Range Interpretation Comments Result (test code = 6463-4) No growth Gram Stain Result (test No organisms seen code = 1123) [facility] gram [id number] 11:46:53 Test Item Value Reference Range Interpretation Comments Result (test code = 6463-4) No growth Gram Stain Result (test No organisms seen code = 1123) [facility] + gram [id number] 11:46:53 Test Item Value Reference Range Interpretation Comments Result (test code = 6463-4) No growth Gram Stain Result (test No organisms seen code = 1123) [facility] + gram [id number] 11:46:53 Test Item Value Reference Range Interpretation Comments Result (test code = 6463-4) No growth Gram Stain Result (test No organisms seen code = 1123) [facility] + gram [id number] 11:46:53 Test Item Value Reference Range Interpretation Comments Result (test code = 6463-4) No growth Gram Stain Result (test No organisms seen code = 1123) [facility] obtained culture + gram [id number] 11:46:53 Test Item Value Reference Range Interpretation Comments Result (test code = 6463-4) No growth Gram Stain Result (test No organisms seen code = 1123) [facility] + gram [id number] 11:46:53 Test Item Value Reference Range Interpretation Comments Result (test code = 6463-4) No growth Gram Stain Result (test No organisms seen code = 1123) [facility] + gram [id number] 11:46:53 Test Item Value Reference Range Interpretation Comments Result (test code = 6463-4) No growth Gram Stain Result (test No organisms seen code = 1123) [facility] + gram [id number] 11:46:53 Test Item Value Reference Range Interpretation Comments Result (test code = 6463-4) No growth Gram Stain Result (test No organisms seen code = 1123) [facility] + gram [id number] 11:46:53 Test Item Value Reference Range Interpretation Comments Result (test code = 6463-4) No growth Gram Stain Result (test No organisms seen code = 1123) [facility] + gram [id number] 11:46:53 Test Item Value Reference Range Interpretation Comments Result (test code = 6463-4) No growth Gram Stain Result (test No organisms seen code = 1123) [facility] + gram [id number] 11:46:53 Test Item Value Reference Range Interpretation Comments Result (test code = 6463-4) No growth Gram Stain Result (test No organisms seen code = 1123) [facility] + gram [id number] 11:46:53 Test Item Value Reference Range Interpretation Comments Result (test code = 6463-4) No growth Gram Stain Result (test No organisms seen code = 1123) [facility] + gram [id number] 11:46:53 Test Item Value Reference Range Interpretation Comments Result (test code = 6463-4) No growth Gram Stain Result (test No organisms seen code = 1123) [facility] + GRAM [id number] 11:46:53 Test Item Value Reference Range Interpretation Comments CULTURE (BEAKER) (test code No growth = 1095) GRAM STAIN RESULT (BEAKER) 1+ WBCs (test code = 1123) GRAM STAIN RESULT (BEAKER) No organisms seen (test code = 89392) RAD, CHEST, 1 VIEW, NON [id number] 06:05:00Reason for exam:->post-opShould this be performed at the bedside?->Yes [facility] 1955 Sex: [...] MDReport Verified Date/Time: 06/21/2021 06:05:24 BASIC METABOLIC [id number] 03:54:19 Test Item Value Reference Range Interpretation [...] S NOT APPLICABLE FOR DIALYSIS PATIEN TS. Child Attendant ID - [id number] 03:49:06 Test Item Value Reference Range Interpretation Comments PHOSPHORUS (BEAKER) (test code = 4.5 mg/dL 2.3-4.7 604) Child Attendant ID - [id number] 03:49:05 Test Item Value Reference Range Interpretation Comments MAGNESIUM (BEAKER) (test code = 2.4 mg/dL 1.6-2.6 627) Child Attendant ID - DBCBC (HEMOGRAM ONLY)2021-06-21 03:45:10 Test [...] /100 WBC 0-0 (test code = 413) [id number] 03:45:00 Test Item Value Reference Range Interpretation Comments PARTIAL THROMBOPLASTIN TIME 35.5 seconds 22.5-36.0 (BEAKER) (test code = 760) PROTHROMBIN TIME/[id number] 03:44:22 Test Item Value Reference Range Interpretation Comments PROTIME (BEAKER) 14.1 seconds 11.9-14.2 (test code = 759) INR (BEAKER) (test 1.11 See_Comment [Automat ed message] code = 370) The system bettermarks generated this result transmitted ref erence range: <=5.90. The reference range was not used to int erpret this result as normal/abnormal . RECOMMENDED COUMADIN/WARFARIN INR THERAPY RANGESSTANDARD DOSE: 2.0 - 3.0 Includes: PROPHYLAXIS for venous thrombosis, systemic embolization; TREATMENT for venous thrombosis and/or pulmonary embolus.HIGH RISK: Target INR is 2.5-3.5 for patients with mechanical heart valves.BASIC METABOLIC [id number] 18:24:15 Test Item Value Reference Range Interpretation [...] S NOT APPLICABLE FOR DIALYSIS PATIEN TS. Child Attendant ID - PIAYA LPOCT-GLUCOSE [id number] 13:44:48 Test Item Value Reference Range Interpretation Comments POC-GLUCOSE METER 165 mg/dL 70-110 H : TESTED A T [facility] 6720 (BEAKER) (test code = YUDY Vaca [facility], 1538) [address]: Child Attendant/Techni kelle ID = [id number] for KOTA ARIAS SARS-CoV2/RT-PCR (Asymptomatic ONLY)2021-06-20 11:58:08 Test Item Value Reference Range Interpretation Comments SARS-COV2/RT-PCR Negative Not Detected, (test code = Negative, See 87496-2) external report for linked test SARS-COV-2 [facility] ALICIA PERFORMING LAB (test code = 95609-5) BRANDI (test code = Negative result for [...] of the Act. Fact Sheet for Healthcare Providers:https://www.[employer]/sites/default/f radha/product/documents/F act_Sheet_HC_Providers_L zvv_DRSA-VeU-9.pdf Fact Sheet for Healthcare Patients:https://www.BandPage/sites/default/fi les/product/documents/Fa ct_Sheet_Patients_Lyra_S ARS-CoV-2.pdf Performing Laboratory:[facility], [place] [address] [place], [place] [address]ARS-CoV2/RT-PCR (Asymptomatic ONLY)2021-06-20 11:58:08 Test Item Value Reference Range Interpretation Comments SARS-COV2/RT-PCR Negative Not Detected, (test code = Negative, See 76595-7) external report for linked test SARS-COV-2 [facility] ALICIA PERFORMING LAB (test code = 06729-1) BRANDI (test code = Negative result for [...] of the Act. Fact Sheet for Healthcare Providers:https://www.[employer]pex/sites/default/f radha/product/documents/F act_Sheet_HC_Providers_L yle_DRGM-YpG-7.pdf Fact Sheet for Healthcare Patients:https://www.BandPage/sites/default/fi les/product/documents/Fa ct_Sheet_Patients_Lyra_S ARS-CoV-2.pdf Performing Laboratory:[facility] [place] [address] [facility])2021-06-20 11:58:08 Test Item Value Reference Range Interpretation Comments SARS-COV2/RT-PCR (test Negative Not Detected, Negative, code = 8299465) See external report for linked test SARS-COV-2 PERFORMING LAB [facility] ALICIA (test code = 8954615) Negative result for this test determines that [...] of the Act.Fact Sheet for Healthcare Prov iders:https://www.[employer].Privepass/sites/default/files/product/documents/Fact_Sheet_HC _Zpoxfcbld_Mqsg_GOES-KsP-5.pdfFact Sheet for Healthcare Patients:https://www.[employer]/sites/default/files/product/docume nts/Aqrb_Agaov_Bjhyyaqk_Ksbc_FCTO-NoH-7.pdfPerforming Laboratory:[facility], [place] [address]ZFEO-KWZORAD METER 2021-06-20 06:30:37 Test Item Value Reference Range Interpretation Comments POC-GLUCOSE METER 145 mg/dL 70-110 H : TESTED A T [facility] 6720 (AKASH) (test code [facility], = 1538) [address]: Child Attendant/Techni kelle ID = [id number] for Tash wiseman (contract), Adal hernandez RAD, CHEST, 1 VIEW, NON [id number] 06:25:00Reason for exam:->post-opShould this be performed at the bedside?->Yes [facility] 1955 Sex: FFINAL REPORT RAD, CHEST, 1 VIEW, NON DEPT INDICATION: post-op COMPARISON: Prior day's exam FINDINGS: Portable frontal view of the chest. IMPRESSION: Support Lines: Interval extubation. A drainage catheter overlies the upper abdomen and lower hemidiaphragm in the center. [place] tipoverlies the pulmonary outflow tract. Pacer device and sternotomy wires are unchanged. Lungs and pleura: Bilateral effusions and adjacent compressive atelectasis are unchanged No significant pneumothorax. Heart and mediastinum: Normal contours. Additional findings: None. Signed: Bayron Cosme MDReport Verified Date/Time: 06/20/2021 06:25:51 Electronically signed by: BAYRON COSME MD on 0 06/20/2021 06:25 [id number] 02:12:20 Test Item Value Reference Range Interpretation Comments PARTIAL THROMBOPLASTIN TIME 35.8 seconds 22.5-36.0 (AKASH) (test code = 760) PROTHROMBIN TIME/[id number] 02:11:37 Test Item Value Reference Range Interpretation Comments PROTIME (AKASH) 15.4 seconds 11.9-14.2 H (test code = 759) INR (BEAKER) (test 1.24 See_Comment [Automat ed message] code = 370) The system bettermarks generated this result transmitted ref erence range: <=5.90. The reference range was not used to int erpret this result as normal/abnormal . RECOMMENDED COUMADIN/WARFARIN INR THERAPY RANGESSTANDARD DOSE: 2.0 - 3.0 Includes: PROPHYLAXIS for venous thrombosis, systemic embolization; TREATMENT for venous thrombosis and/or pulmonary embolus.HIGH RISK: Target INR is 2.5-3.5 for patients with mechanical heart valves.BASIC METABOLIC [id number] 02:08:36 Test Item Value Reference Range Interpretation [...] S NOT APPLICABLE FOR DIALYSIS PATIEN TS. Child Attendant ID - [id number] 01:57:56 Test Item Value Reference Range Interpretation Comments PHOSPHORUS (BEAKER) (test code = 4.1 mg/dL 2.3-4.7 604) Child Attendant ID - PUDVSAIVPJG4663-39-44 01:57:55 Test Item Value Reference Range Interpretation Comments MAGNESIUM (BEAKER) (test code = 2.2 mg/dL 1.6-2.6 627) Child Attendant ID - DBCBC (HEMOGRAM ONLY)2021-06-20 01:36:09 Test [...] 0-0 (test code = 413) Blood gas, [id number] 01:27:29 Test Item Value Reference Range Interpretation [...] (test 83 See_Comment [Automa levi code = 7033-7) message] The system which generated this result transmitted reference range : 80 - 90 mm Hg. The reference range was not used to interpret this result as normal/abnormal . O2 Sat, Arterial (test 96.9 % 96.0-97.0 code = 4228-6) HCO3, Arterial (test 22 mmol/L 21-29 code = 1960-4) Base Excess, Arterial -2.4 mmol/L -2.0-3.0 L (test code = 1925-7) Patient Temperature 35.5 (test code = 8310-5) FIO2 (test code = 1819) 28 Lab Interpretation Abnormal (test code = 96909-6) [facility] skecqrrg6357-65-14 01:27:29 Test Item Value Reference Range Interpretation [...] 28 Lab Interpretation Abnormal (test code = 52057-6) [facility] gas, [id number] 01:27:29 Test Item Value Reference Range Interpretation [...] 28 Lab Interpretation Abnormal (test code = 29709-1) [facility] mhsrtpqe1503-97-45 01:27:29 Test Item Value Reference Range Interpretation [...] 28 Lab Interpretation Abnormal (test code = 97599-4) [facility] gas, wxrizaas8074-84-40 01:27:29 Test Item Value Reference Range Interpretation [...] 28 Lab Interpretation Abnormal (test code = 79878-3) [facility] gas, lhoracjj8020-50-73 01:27:29 Test Item Value Reference Range Interpretation [...] 28 Lab Interpretation Abnormal (test code = 54943-9) [facility] gas, ateijdvs9872-74-69 01:27:29 Test Item Value Reference Range Interpretation [...] 28 Lab Interpretation Abnormal (test code = 30359-3) [facility], ftzabdfy6210-40-02 01:27:29 Test Item Value Reference Range Interpretation [...] 28 Lab Interpretation Abnormal (test code = 44582-5) [facility] kamtqvws1290-70-89 01:27:29 Test Item Value Reference Range Interpretation [...] 28 Lab Interpretation Abnormal (test code = 62732-7) [facility], qlmzexzd1820-11-55 01:27:29 Test Item Value Reference Range Interpretation [...] 28 Lab Interpretation Abnormal (test code = 73580-1) [facility], kbwvhgsq3840-74-31 01:27:29 Test Item Value Reference Range Interpretation [...] 28 Lab Interpretation Abnormal (test code = 60819-8) [facility], ndgtaykq5537-24-83 01:27:29 Test Item Value Reference Range Interpretation [...] 28 Lab Interpretation Abnormal (test code = 45169-2) [facility], vzttdhjg3666-71-77 01:27:29 Test Item Value Reference Range Interpretation [...] 28 Lab Interpretation Abnormal (test code = 54776-5) [facility], emoiizot7969-09-34 01:27:29 Test Item Value Reference Range Interpretation [...] 28 Lab Interpretation Abnormal (test code = 33245-7) [facility], wjoitdaj9190-47-48 01:27:29 Test Item Value Reference Range Interpretation [...] 28 Lab Interpretation Abnormal (test code = 49633-3) [facility], jojktqhj2938-61-20 01:27:29 Test Item Value Reference Range Interpretation [...] 28 Lab Interpretation Abnormal (test code = 21001-4) [facility], nsrmaxtu2517-34-93 01:27:29 Test Item Value Reference Range Interpretation [...] 28 Lab Interpretation Abnormal (test code = 48105-7) [facility], enrfbzre9717-83-90 01:27:29 Test Item Value Reference Range Interpretation [...] 28 Lab Interpretation Abnormal (test code = 26473-1) [facility] CenterBL[facility], [id number] 01:27:29 Test Item Value Reference Range Interpretation [...] (BEAKER) (test code = 1819) 28.0 Calcium, Womtgpv8620-93-58 01:26:07 Test Item Value Reference Range Interpretation Comments Calcium, Ion (test code = 1993-06) 1.17 mmol/L 1.12-1.27 pH, Blood (test code = 84002-5) 7.39 [facility], Tirjwzu0166-75-34 01:26:07 Test Item Value Reference Range Interpretation Comments Calcium, Ion (test code = 1993-06) 1.17 mmol/L 1.12-1.27 pH, Blood (test code = 96271-1) 7.39 [facility], Bhdfzzt1712-40-71 01:26:07 Test Item Value Reference Range Interpretation Comments Calcium, Ion (test code = 1993-06) 1.17 mmol/L 1.12-1.27 pH, Blood (test code = 17668-3) 7.39 [facility], Ijfwsmc6820-80-19 01:26:07 Test Item Value Reference Range Interpretation Comments Calcium, Ion (test code = 1993-06) 1.17 mmol/L 1.12-1.27 pH, Blood (test code = 76323-6) 7.39 [facility], Upgplei8517-08-11 01:26:07 Test Item Value Reference Range Interpretation Comments Calcium, Ion (test code = 1993-06) 1.17 mmol/L 1.12-1.27 pH, Blood (test code = 93087-6) 7.39 [facility], Gaajzze2562-39-76 01:26:07 Test Item Value Reference Range Interpretation Comments Calcium, Ion (test code = 1993-06) 1.17 mmol/L 1.12-1.27 pH, Blood (test code = 66055-6) 7.39 [facility], Rklprmt2424-28-68 01:26:07 Test Item Value Reference Range Interpretation Comments Calcium, Ion (test code = 1993-06) 1.17 mmol/L 1.12-1.27 pH, Blood (test code = 71772-6) 7.39 [facility], Frmnlxj6437-77-30 01:26:07 Test Item Value Reference Range Interpretation Comments Calcium, Ion (test code = 1993-06) 1.17 mmol/L 1.12-1.27 pH, Blood (test code = 83550-5) 7.39 [facility], Cbjupma2539-30-14 01:26:07 Test Item Value Reference Range Interpretation Comments Calcium, Ion (test code = 1993-06) 1.17 mmol/L 1.12-1.27 pH, Blood (test code = 88125-9) 7.39 [facility], Muqpcit4720-88-05 01:26:07 Test Item Value Reference Range Interpretation Comments Calcium, Ion (test code = 1993-06) 1.17 mmol/L 1.12-1.27 pH, Blood (test code = 17887-2) 7.39 [facility], [id number] 01:26:07 Test Item Value Reference Range Interpretation Comments Calcium, Ion (test code = 1993-06) 1.17 mmol/L 1.12-1.27 pH, Blood (test code = 34626-1) 7.39 [facility], Qmtsolt2675-34-97 01:26:07 Test Item Value Reference Range Interpretation Comments Calcium, Ion (test code = 1993-06) 1.17 mmol/L 1.12-1.27 pH, Blood (test code = 62553-5) 7.39 [facility], [id number] 01:26:07 Test Item Value Reference Range Interpretation Comments Calcium, Ion (test code = 1993-06) 1.17 mmol/L 1.12-1.27 pH, Blood (test code = 43027-9) 7.39 [facility], [id number] 01:26:07 Test Item Value Reference Range Interpretation Comments Calcium, Ion (test code = 1993-06) 1.17 mmol/L 1.12-1.27 pH, Blood (test code = 50216-5) 7.39 [facility], [id number] 01:26:07 Test Item Value Reference Range Interpretation Comments Calcium, Ion (test code = 1993-06) 1.17 mmol/L 1.12-1.27 pH, Blood (test code = 54992-2) 7.39 [facility], [id number] 01:26:07 Test Item Value Reference Range Interpretation Comments Calcium, Ion (test code = 1993-06) 1.17 mmol/L 1.12-1.27 pH, Blood (test code = 35763-5) 7.39 [facility]Cal[facility], Eyxfvgs8055-59-18 01:26:07 Test Item Value Reference Range Interpretation Comments Calcium, Ion (test code = 1993-06) 1.17 mmol/L 1.12-1.27 pH, Blood (test code = 06596-9) 7.39 [facility], [id number] 01:26:07 Test Item Value Reference Range Interpretation Comments Calcium, Ion (test code = 1993-06) 1.17 mmol/L 1.12-1.27 pH, Blood (test code = 74600-9) 7.39 [facility] CenterCALCIUM, [id number] 01:26:07 Test Item Value Reference Range Interpretation Comments CALCIUM IONIZED (BEAKER) (test 1.17 mmol/L 1.12-1.27 code = 698) PH, BLOOD (BEAKER) (test code = 7.39 1810) Prepare [id number] 23:55:00 Test Item Value Reference Range Interpretation Comments Unit ABO (test code = 5838716) A Pos UNIT NUMBER (test code = [id number] 934-0) Status (test code = 2787931) [place]_TIMEINCHART Blood Bank Product (test code PLATELETS = 2263) PRODUCT CODE (test code = S1723G51 933-2) [facility] [id number] 23:55:00 Test Item Value Reference Range Interpretation Comments Unit ABO (test code = 7785733) A Pos UNIT NUMBER (test code = [id number] 934-0) Status (test code = 8303930) [place]_TIMEINCHART Blood Bank Product (test code PLATELETS = 2263) PRODUCT CODE (test code = A2108Q00 933-2) [facility] [id number] 23:55:00 Test Item Value Reference Range Interpretation Comments Unit ABO (test code = 7876282) A Pos UNIT NUMBER (test code = [id number] 934-0) Status (test code = 1529635) [place]_TIMEINCHART Blood Bank Product (test code PLATELETS = 2263) PRODUCT CODE (test code = B5897X95 933-2) [facility] [id number] 23:55:00 Test Item Value Reference Range Interpretation Comments Unit ABO (test code = 8930245) A Pos UNIT NUMBER (test code = [id number] 934-0) Status (test code = 7471722) [place]_TIMEINCHART Blood Bank Product (test code PLATELETS = 2263) PRODUCT CODE (test code = Z5627Q21 933-2) [facility] [id number] 23:55:00 Test Item Value Reference Range Interpretation Comments Unit ABO (test code = 2866631) A Pos UNIT NUMBER (test code = [id number] 934-0) Status (test code = 1242415) [place]_TIMEINCHART Blood Bank Product (test code PLATELETS = 2263) PRODUCT CODE (test code = B1364H70 933-2) [facility] [id number] 23:55:00 Test Item Value Reference Range Interpretation Comments Unit ABO (test code = 1480143) A Pos UNIT NUMBER (test code = [id number] 934-0) Status (test code = 3076320) [place]_TIMEINCHART Blood Bank Product (test code PLATELETS = 2263) PRODUCT CODE (test code = W0067F26 933-2) [facility] [id number] 23:55:00 Test Item Value Reference Range Interpretation Comments Unit ABO (test code = 3942112) A Pos UNIT NUMBER (test code = [id number] 934-0) Status (test code = 0974839) [place]_TIMEINCHART Blood Bank Product (test code PLATELETS = 2263) PRODUCT CODE (test code = W3745H88 933-2) [facility] [id number] 23:55:00 Test Item Value Reference Range Interpretation Comments Unit ABO (test code = 8536271) A Pos UNIT NUMBER (test code = [id number] 934-0) Status (test code = 5343042) [place]_TIMEINCHART Blood Bank Product (test code PLATELETS = 2263) PRODUCT CODE (test code = X9134B88 933-2) [facility] [id number] 23:55:00 Test Item Value Reference Range Interpretation Comments Unit ABO (test code = 7031251) A Pos UNIT NUMBER (test code = [id number] 934-0) Status (test code = 1325905) [place]_TIMEINCHART Blood Bank Product (test code PLATELETS = 2263) PRODUCT CODE (test code = Z6918J22 933-2) [facility] [id number] 23:55:00 Test Item Value Reference Range Interpretation Comments Unit ABO (test code = 1495219) A Pos UNIT NUMBER (test code = [id number] 934-0) Status (test code = 7795656) [place]_TIMEINCHART Blood Bank Product (test code PLATELETS = 2263) PRODUCT CODE (test code = R4660H27 933-2) [facility] [id number] 23:55:00 Test Item Value Reference Range Interpretation Comments Unit ABO (test code = 5163782) A Pos UNIT NUMBER (test code = [id number] 934-0) Status (test code = 2686815) [place]_TIMEINCHART Blood Bank Product (test code PLATELETS = 2263) PRODUCT CODE (test code = Z0784F52 933-2) [facility] [id number] 23:55:00 Test Item Value Reference Range Interpretation Comments Unit ABO (test code = 9404748) A Pos UNIT NUMBER (test code = [id number] 934-0) Status (test code = 1490759) [place]_TIMEINCHART Blood Bank Product (test code PLATELETS = 2263) PRODUCT CODE (test code = G4226A23 933-2) [facility] [id number] 23:55:00 Test Item Value Reference Range Interpretation Comments Unit ABO (test code = 6452766) A Pos UNIT NUMBER (test code = [id number] 934-0) Status (test code = 6806560) [place]_TIMEINCHART Blood Bank Product (test code PLATELETS = 2263) PRODUCT CODE (test code = K0105Q13 933-2) [facility] [id number] 23:55:00 Test Item Value Reference Range Interpretation Comments Unit ABO (test code = 4390062) A Pos UNIT NUMBER (test code = [id number] 934-0) Status (test code = 2774432) [place]_TIMEINCHART Blood Bank Product (test code PLATELETS = 2263) PRODUCT CODE (test code = A0637D06 933-2) [facility] [id number] 23:55:00 Test Item Value Reference Range Interpretation Comments Unit ABO (test code = 3126882) A Pos UNIT NUMBER (test code = [id number] 934-0) Status (test code = 8702839) [place]_TIMEINCHART Blood Bank Product (test code PLATELETS = 2263) PRODUCT CODE (test code = X6597J08 933-2) [facility] [id number] 23:55:00 Test Item Value Reference Range Interpretation Comments Unit ABO (test code = 0117524) A Pos UNIT NUMBER (test code = [id number] 934-0) Status (test code = 4087379) TX_TIMEINCHART Blood Bank Product (test code PLATELETS = 2263) PRODUCT CODE (test code = I3976B47 933-2) [facility] [id number] 23:55:00 Test Item Value Reference Range Interpretation Comments Unit ABO (test code = 9128178) A Pos UNIT NUMBER (test code = [id number] 934-0) Status (test code = 0131519) TX_TIMEINCHART Blood Bank Product (test code PLATELETS = 2263) PRODUCT CODE (test code = J4076P92 933-2) [facility] [id number] 23:55:00 Test Item Value Reference Range Interpretation Comments Unit ABO (test code = 1067920) A Pos UNIT NUMBER (test code = [id number] 934-0) Status (test code = 8009467) TX_TIMEINCHART Blood Bank Product (test code PLATELETS = 2263) PRODUCT CODE (test code = R0376N70 933-2) [facility] [id number] 23:54:00 Test Item Value Reference Range Interpretation Comments CROSSMATCH (test code = COMPATIBLE 2264) Unit ABO (test code = O Pos 9762355) UNIT NUMBER (test code = [id number] 934-0) Status (test code = RETURNED FROM ISSUE 2592061) Blood Bank Product (test RED BLOOD CELLS code = 2263) PRODUCT CODE (test code = W8064I04 933-2) [facility] [id number] 23:54:00 Test Item Value Reference Range Interpretation Comments CROSSMATCH (test code = COMPATIBLE 2264) Unit ABO (test code = O Pos 8239282) UNIT NUMBER (test code = [id number] 934-0) Status (test code = RETURNED FROM ISSUE 5664258) Blood Bank Product (test RED BLOOD CELLS code = 2263) PRODUCT CODE (test code = E0982G54 933-2) [facility] [id number] 23:54:00 Test Item Value Reference Range Interpretation Comments CROSSMATCH (test code = COMPATIBLE 2264) Unit ABO (test code = O Pos 3991464) UNIT NUMBER (test code = [id number] 934-0) Status (test code = RETURNED FROM ISSUE 15100613) Blood Bank Product (test RED BLOOD CELLS code = 2263) PRODUCT CODE (test code = J4117R58 933-2) [facility] [id number] 23:54:00 Test Item Value Reference Range Interpretation Comments CROSSMATCH (test code = COMPATIBLE 2264) Unit ABO (test code = O Pos 5250046) UNIT NUMBER (test code = [id number] 934-0) Status (test code = RETURNED FROM ISSUE 15100613) Blood Bank Product (test RED BLOOD CELLS code = 2263) PRODUCT CODE (test code = C5051J12 933-2) [facility] [id number] 23:54:00 Test Item Value Reference Range Interpretation Comments CROSSMATCH (test code = COMPATIBLE 2264) Unit ABO (test code = O Pos 1873085) UNIT NUMBER (test code = [id number] 934-0) Status (test code = RETURNED FROM ISSUE 15100613) Blood Bank Product (test RED BLOOD CELLS code = 2263) PRODUCT CODE (test code = U2721Q07 933-2) [facility] [id number] 23:54:00 Test Item Value Reference Range Interpretation Comments CROSSMATCH (test code = COMPATIBLE 2264) Unit ABO (test code = O Pos 3279798) UNIT NUMBER (test code = [id number] 934-0) Status (test code = RETURNED FROM ISSUE 15100613) Blood Bank Product (test RED BLOOD CELLS code = 2263) PRODUCT CODE (test code = H0970U23 933-2) [facility] [id number] 23:54:00 Test Item Value Reference Range Interpretation Comments CROSSMATCH (test code = COMPATIBLE 2264) Unit ABO (test code = O Pos 2643283) UNIT NUMBER (test code = [id number] 934-0) Status (test code = RETURNED FROM ISSUE 15100613) Blood Bank Product (test RED BLOOD CELLS code = 2263) PRODUCT CODE (test code = T3657F14 933-2) [facility] [id number] 23:54:00 Test Item Value Reference Range Interpretation Comments CROSSMATCH (test code = COMPATIBLE 2264) Unit ABO (test code = O Pos 5351297) UNIT NUMBER (test code = [id number] 934-0) Status (test code = RETURNED FROM ISSUE 15100613) Blood Bank Product (test RED BLOOD CELLS code = 2263) PRODUCT CODE (test code = W1981D86 933-2) [facility]2022-03-18 23:54:00 Test Item Value Reference Range Interpretation Comments CROSSMATCH (test code = COMPATIBLE 2264) Unit ABO (test code = O Pos 4590088) UNIT NUMBER (test code = [id number] 934-0) Status (test code = RETURNED FROM ISSUE 15100613) Blood Bank Product (test RED BLOOD CELLS code = 2263) PRODUCT CODE (test code = E6939H02 933-2) [facility]2022-03-18 23:54:00 Test Item Value Reference Range Interpretation Comments CROSSMATCH (test code = COMPATIBLE 2264) Unit ABO (test code = O Pos 8375613) UNIT NUMBER (test code = [id number] 934-0) Status (test code = RETURNED FROM ISSUE 15100613) Blood Bank Product (test RED BLOOD CELLS code = 2263) PRODUCT CODE (test code = P8171L17 933-2) [facility]2022-03-18 23:54:00 Test Item Value Reference Range Interpretation Comments CROSSMATCH (test code = COMPATIBLE 2264) Unit ABO (test code = O Pos 0318140) UNIT NUMBER (test code = [id number] 934-0) Status (test code = RETURNED FROM ISSUE 15100613) Blood Bank Product (test RED BLOOD CELLS code = 2263) PRODUCT CODE (test code = K3349Z73 933-2) [facility]2022-03-18 23:54:00 Test Item Value Reference Range Interpretation Comments CROSSMATCH (test code = COMPATIBLE 2264) Unit ABO (test code = O Pos 7982001) UNIT NUMBER (test code = [id number] 934-0) Status (test code = RETURNED FROM ISSUE 15100613) Blood Bank Product (test RED BLOOD CELLS code = 2263) PRODUCT CODE (test code = Q4037X21 933-2) [facility] [id number] 23:54:00 Test Item Value Reference Range Interpretation Comments CROSSMATCH (test code = COMPATIBLE 2264) Unit ABO (test code = O Pos 8517596) UNIT NUMBER (test code = [id number] 934-0) Status (test code = RETURNED FROM ISSUE 15100613) Blood Bank Product (test RED BLOOD CELLS code = 2263) PRODUCT CODE (test code = C3796M38 933-2) [facility] [id number] 23:54:00 Test Item Value Reference Range Interpretation Comments CROSSMATCH (test code = COMPATIBLE 2264) Unit ABO (test code = O Pos 9524530) UNIT NUMBER (test code = [id number] 934-0) Status (test code = RETURNED FROM ISSUE 15100613) Blood Bank Product (test RED BLOOD CELLS code = 2263) PRODUCT CODE (test code = D1851D14 933-2) [facility] [id number] 23:54:00 Test Item Value Reference Range Interpretation Comments CROSSMATCH (test code = COMPATIBLE 2264) Unit ABO (test code = O Pos 9213774) UNIT NUMBER (test code = [id number] 934-0) Status (test code = RETURNED FROM ISSUE 15100613) Blood Bank Product (test RED BLOOD CELLS code = 2263) PRODUCT CODE (test code = K1324L25 933-2) [facility] [id number] 23:54:00 Test Item Value Reference Range Interpretation Comments CROSSMATCH (test code = COMPATIBLE 2264) Unit ABO (test code = O Pos 1175110) UNIT NUMBER (test code = [id number] 934-0) Status (test code = RETURNED FROM ISSUE 15100613) Blood Bank Product (test RED BLOOD CELLS code = 2263) PRODUCT CODE (test code = R3050X93 933-2) [facility] [id number] 23:54:00 Test Item Value Reference Range Interpretation Comments CROSSMATCH (test code = COMPATIBLE 2264) Unit ABO (test code = O Pos 2506008) UNIT NUMBER (test code = [id number] 934-0) Status (test code = RETURNED FROM ISSUE 5157129) Blood Bank Product (test RED BLOOD CELLS code = 2263) PRODUCT CODE (test code = J3028B77 933-2) [id number] 23:54:00 Test Item Value Reference Range Interpretation Comments CROSSMATCH (test code = COMPATIBLE 4) Unit ABO (test code = O Pos 9401497) UNIT NUMBER (test code = [id number] 934-0) Status (test code = RETURNED FROM ISSUE 1329076) Blood Bank Product (test RED BLOOD CELLS code = 2263) PRODUCT CODE (test code = B6319I56 933-2) [facility] [id number] 22:04:29 Test Item Value Reference Range Interpretation [...] S NOT APPLICABLE FOR DIALYSIS PATIEN TS. Child Attendant ID - ZFOYRLPQGUBI4850-06-47 22:03:41 Test Item Value Reference Range Interpretation Comments PHOSPHORUS (BEAKER) (test code = 4.3 mg/dL 2.3-4.7 604) Child Attendant ID - QUMWBAJPVQV4823-96-63 22:03:40 Test Item Value Reference Range Interpretation Comments MAGNESIUM (BEAKER) (test code = 2.2 mg/dL 1.6-2.6 627) Child Attendant ID - DBpH, muvxyhzb6679-62-96 21:40:14 Test Item Value Reference Range Interpretation Comments pH, Arterial (test code = 2744-1) 7.37 7.35-7.45 Lab Interpretation (test code = Normal 37380-7) [facility]2022-03-18 21:40:14 Test Item Value Reference Range Interpretation Comments pH, Arterial (test code = 2744-1) 7.37 7.35-7.45 Lab Interpretation (test code = Normal 60053-4) [facility]2022-03-18 21:40:14 Test Item Value Reference Range Interpretation Comments pH, Arterial (test code = 2744-1) 7.37 7.35-7.45 Lab Interpretation (test code = Normal 09751-6) [facility]2022-03-18 21:40:14 Test Item Value Reference Range Interpretation Comments pH, Arterial (test code = 2744-1) 7.37 7.35-7.45 Lab Interpretation (test code = Normal 43070-3) [facility]2022-03-18 21:40:14 Test Item Value Reference Range Interpretation Comments pH, Arterial (test code = 2744-1) 7.37 7.35-7.45 Lab Interpretation (test code = Normal 18305-9) [facility]2022-03-18 21:40:14 Test Item Value Reference Range Interpretation Comments pH, Arterial (test code = 2744-1) 7.37 7.35-7.45 Lab Interpretation (test code = Normal 73039-8) [facility]2022-03-18 21:40:14 Test Item Value Reference Range Interpretation Comments pH, Arterial (test code = 2744-1) 7.37 7.35-7.45 Lab Interpretation (test code = Normal 41364-4) [facility]2022-03-18 21:40:14 Test Item Value Reference Range Interpretation Comments pH, Arterial (test code = 2744-1) 7.37 7.35-7.45 Lab Interpretation (test code = Normal 56080-7) [facility] [id number] 21:40:14 Test Item Value Reference Range Interpretation Comments pH, Arterial (test code = 2744-1) 7.37 7.35-7.45 Lab Interpretation (test code = Normal 69932-7) [facility]2022-03-18 21:40:14 Test Item Value Reference Range Interpretation Comments pH, Arterial (test code = 2744-1) 7.37 7.35-7.45 Lab Interpretation (test code = Normal 43122-5) [facility]2022-03-18 21:40:14 Test Item Value Reference Range Interpretation Comments pH, Arterial (test code = 2744-1) 7.37 7.35-7.45 Lab Interpretation (test code = Normal 60725-3) [facility]2022-03-18 21:40:14 Test Item Value Reference Range Interpretation Comments pH, Arterial (test code = 2744-1) 7.37 7.35-7.45 Lab Interpretation (test code = Normal 78551-0) [facility]2022-03-18 21:40:14 Test Item Value Reference Range Interpretation Comments pH, Arterial (test code = 2744-1) 7.37 7.35-7.45 Lab Interpretation (test code = Normal 25737-5) [facility]2022-03-18 21:40:14 Test Item Value Reference Range Interpretation Comments pH, Arterial (test code = 2744-1) 7.37 7.35-7.45 Lab Interpretation (test code = Normal 84395-7) [facility]2022-03-18 21:40:14 Test Item Value Reference Range Interpretation Comments pH, Arterial (test code = 2744-1) 7.37 7.35-7.45 Lab Interpretation (test code = Normal 26806-0) [facility]2022-03-18 21:40:14 Test Item Value Reference Range Interpretation Comments pH, Arterial (test code = 2744-1) 7.37 7.35-7.45 Lab Interpretation (test code = Normal 72727-5) [facility], [id number] 21:40:14 Test Item Value Reference Range Interpretation Comments pH, Arterial (test code = 2744-1) 7.37 7.35-7.45 Lab Interpretation (test code = Normal 36118-8) [facility], [id number] 21:40:14 Test Item Value Reference Range Interpretation Comments pH, Arterial (test code = 2744-1) 7.37 7.35-7.45 Lab Interpretation (test code = Normal 47147-4) [facility], [id number] 21:40:14 Test Item Value Reference Range Interpretation Comments PH ARTERIAL (BEAKER) (test code = 383) 7.37 7.35-7.45 POCT-GLUCOSE [id number] 18:07:04 Test Item Value Reference Range Interpretation Comments POC-GLUCOSE METER 208 mg/dL 70-110 H : TESTED A T [facility] 6720 (BEAKER) (test code = [place], 1538) [address]: Child Attendant/Techni kelle ID = [id number] for Chilo Mccarty BLOOD GAS, [id number] 12:45:46 Test Item Value Reference Range Interpretation [...] (test code = 1819) 36.0 BLOOD GAS, [id number] 11:23:57 Test Item Value Reference Range Interpretation [...] FIO2 (BEAKER) (test code = 1819) 40.0 sliul2341-79-04 09:37:11 Test Item Value Reference Range Interpretation Comments Scan Result (test code = See scanned report [id number]) BRANDI (test code = BRANDI) See scanned report [place] 14113022-03-18 09:37:11 Test Item Value Reference Range Interpretation Comments Scan Result (test code = See scanned report [id number]) BRANDI (test code = BRANDI) See scanned report [place] 14113022-03-18 09:37:11 Test Item Value Reference Range Interpretation Comments Scan Result (test code = See scanned report 9321107) BRANDI (test code = BRANDI) See scanned report [place] 14113022-03-18 09:37:11 Test Item Value Reference Range Interpretation Comments Scan Result (test code = See scanned report [id number]) BRANDI (test code = BRANDI) See scanned report [place] 580042-03-18 09:37:11 Test Item Value Reference Range Interpretation Comments Scan Result (test code = See scanned report 7595750) BRANDI (test code = BRANDI) See scanned report [place] [address]-03-18 09:37:11 Test Item Value Reference Range Interpretation Comments Scan Result (test code = See scanned report 5900465) BRANDI (test code = BRANDI) See scanned report [place] 580042-03-18 09:37:11 Test Item Value Reference Range Interpretation Comments Scan Result (test code = See scanned report 3634176) BRANDI (test code = BRANDI) See scanned report [address]03-18 09:37:11 Test Item Value Reference Range Interpretation Comments Scan Result (test code = See scanned report 1970483) BRANDI (test code = BRANDI) See scanned report [address]03-18 09:37:11 Test Item Value Reference Range Interpretation Comments Scan Result (test code = See scanned report 1277035) BRANDI (test code = BRANDI) See scanned report [address]03-18 09:37:11 Test Item Value Reference Range Interpretation Comments Scan Result (test code = See scanned report 8338807) BRANDI (test code = BRANDI) See scanned report [address]03-18 09:37:11 Test Item Value Reference Range Interpretation Comments Scan Result (test code = See scanned report 6996504) BRANDI (test code = BRANDI) See scanned report [address]03-18 09:37:11 Test Item Value Reference Range Interpretation Comments Scan Result (test code = See scanned report 4405880) BRANDI (test code = BRANDI) See scanned report [place] [address]-03-18 09:37:11 Test Item Value Reference Range Interpretation Comments Scan Result (test code = See scanned report 1088103) BRANDI (test code = BRANDI) See scanned report [place] [address]-03-18 09:37:11 Test Item Value Reference Range Interpretation Comments Scan Result (test code = See scanned report 3549688) BRANDI (test code = BRANDI) See scanned report [place] [address]-03-18 09:37:11 Test Item Value Reference Range Interpretation Comments Scan Result (test code = See scanned report [id number]) BRANDI (test code = BRANDI) See scanned report [address]03-18 09:37:11 Test Item Value Reference Range Interpretation Comments Scan Result (test code = See scanned report 4899437) BRANDI (test code = BRANDI) See scanned report [address]03-18 09:37:11 Test Item Value Reference Range Interpretation Comments Scan Result (test code = See scanned report [id number]) BRANDI (test code = BRANDI) See scanned report [address]03-18 09:37:11 Test Item Value Reference Range Interpretation Comments Scan Result (test code = See scanned report 7113614) BRANDI (test code = BRANDI) See scanned report [facility] [id number] 09:37:11 Test Item Value Reference Range Interpretation Comments SCAN RESULT (test code = See scanned report 1174074) See scanned reportPOCT-GLUCOSE [id number] 08:52:16 Test Item Value Reference Range Interpretation Comments POC-GLUCOSE METER 165 mg/dL 70-110 H : TESTED A T [facility] 6720 (BEAKER) (test code = [place], 1538) 15[address]: Child Attendant/Techni kelle ID = [id number] for Chilo Mccarty RAD, CHEST, 1 VIEW, NON [id number] 04:10:00Reason for exam:->post-opShould this be performed at the bedside?->Yes [facility] 1955 Sex: FFINAL REPORT RAD, CHEST, 1 VIEW, NON DEPT INDICATION: post-op COMPARISON: Prior day's exam FINDINGS: Portable frontal view of the chest. IMPRESSION: Support Lines: Stable Lungs and pleura: Unchanged central venous congestion. No new consolidation or effusion. No pneumothorax. Heart and mediastinum: Stable contours. Additional findings: None. Signed: Andrew Cary Verified Date/Time: 06/19/2021 04:10:04 BASIC METABOLIC [id number] 03:27:20 Test Item Value Reference Range Interpretation [...] S NOT APPLICABLE FOR DIALYSIS PATIEN TS. Child Attendant ID - RAKAN [id number] 03:26:39 Test Item Value Reference Range Interpretation Comments MAGNESIUM (BEAKER) (test code = 2.4 mg/dL 1.6-2.6 627) Child Attendant ID Bassam BLEDSOE [id number] 03:26:39 Test Item Value Reference Range Interpretation Comments PHOSPHORUS (BEAKER) (test code = 4.8 mg/dL 2.3-4.7 H 604) Child Attendant ID Bassam RAKAN [id number] 03:02:29 Test Item Value Reference Range Interpretation Comments PARTIAL THROMBOPLASTIN TIME 35.4 seconds 22.5-36.0 (BEAKER) (test code = 760) PROTHROMBIN TIME/[id number] 03:01:50 Test Item Value Reference Range Interpretation Comments PROTIME (BEAKER) 16.0 seconds 11.9-14.2 H (test code = 759) INR (BEAKER) (test 1.31 See_Comment [Automat ed message] code = 370) The system bettermarks generated this result transmitted ref erence range: [...] 0-0 (test code = 413) OXYGEN SATURATION, [id number] 02:28:43 Test Item Value Reference Range Interpretation Comments O2 SATURATION (MEASURED) (BEAKER) 79.3 % (test code = 1455) BLOOD GAS, [id number] 02:25:53 Test Item Value Reference Range Interpretation [...] (BEAKER) (test code = 1819) 40.0 POCT-GLUCOSE [id number] 00:06:42 Test Item Value Reference Range Interpretation Comments POC-GLUCOSE METER 88 mg/dL 70-110 : TESTED A T [facility] 6720 (BEAKER) (test code = [facility], 1538) [address]: Child Attendant/Techni kelle ID = [id number] for JUGU ILON (V), ERICK POCT-GLUCOSE [id number] 23:14:53 Test Item Value Reference Range Interpretation Comments POC-GLUCOSE METER 91 mg/dL 70-110 : TESTED A T [facility] 6720 (BEAKER) (test code = [facility], 1538) 42633: Child Attendant/Techni kelle ID = [id number] for JUGU ILON (V), ERICK POCT-GLUCOSE [id number] 21:30:27 Test Item Value Reference Range Interpretation Comments POC-GLUCOSE METER 128 mg/dL 70-110 H : TESTED A T [facility] 6720 (BEAKER) (test code = [facility], 1538) 02379: Child Attendant/Techni kelle ID = [id number] for JU GUILON (V), ERICK POCT-GLUCOSE [id number] 19:05:18 Test Item Value Reference Range Interpretation Comments POC-GLUCOSE METER 165 mg/dL 70-110 H : TESTED A T [facility] 6720 (BEAKER) (test code = [facility], 1538) 26195: Child Attendant/Techni kelle ID = [id number] for JA MARIBEL BURRELLSMI BASIC METABOLIC [id number] 18:47:16 Test Item Value Reference Range Interpretation [...] S NOT APPLICABLE FOR DIALYSIS PATIEN TS. Child Attendant ID - HIEN [id number] 18:44:55 Test Item Value Reference Range Interpretation Comments MAGNESIUM (BEAKER) (test code = 2.5 mg/dL 1.6-2.6 627) Child Attendant ID - HIEN [id number] 18:44:55 Test Item Value Reference Range Interpretation Comments PHOSPHORUS (BEAKER) (test code = 4.7 mg/dL 2.3-4.7 604) Child Attendant ID - HIEN MBLOOD GAS, [id number] 18:43:01 Test Item Value Reference Range Interpretation [...] (test code = 1819) 60.0 OXYGEN SATURATION, [id number] 18:40:36 Test Item Value Reference Range Interpretation Comments O2 SATURATION (MEASURED) (BEAKER) 90.5 % (test code = 1455) Lactic Acid, Rgwcsawe7265-89-03 18:40:35 Test Item Value Reference Range Interpretation Comments Lactate, Art (test code = 2.1 mmol/L 0.5-2.2 2874) BRANDI (test code = BRANDI) Child Attendant ID - HIEN M Lab Interpretation (test Normal code = 81891-2) [facility], Bknvmjzf5627-45-06 18:40:35 Test Item Value Reference Range Interpretation Comments Lactate, Art (test code = 2.1 mmol/L 0.5-2.2 2874) BRANDI (test code = BRANDI) Child Attendant ID - HIEN Lab Interpretation (test Normal code = 38464-3) [facility], [id number] 18:40:35 Test Item Value Reference Range Interpretation Comments Lactate, Art (test code = 2.1 mmol/L 0.5-2.2 2874) BRANDI (test code = BRANDI) Child Attendant ID - HIEN Lab Interpretation (test Normal code = 89802-0) [facility], [id number] 18:40:35 Test Item Value Reference Range Interpretation Comments Lactate, Art (test code = 2.1 mmol/L 0.5-2.2 2874) BRANDI (test code = BRANDI) Child Attendant ID - HIEN Lab Interpretation (test Normal code = 39093-5) [facility], [id number] 18:40:35 Test Item Value Reference Range Interpretation Comments Lactate, Art (test code = 2.1 mmol/L 0.5-2.2 2874) BRANDI (test code = BRANDI) Child Attendant ID - HIEN Lab Interpretation (test Normal code = 31157-7) [facility], [id number] 18:40:35 Test Item Value Reference Range Interpretation Comments Lactate, Art (test code = 2.1 mmol/L 0.5-2.2 2874) BRANDI (test code = BRANDI) Child Attendant ID - HIEN Lab Interpretation (test Normal code = 44289-1) [facility], Fjthaeki8443-84-55 18:40:35 Test Item Value Reference Range Interpretation Comments Lactate, Art (test code = 2.1 mmol/L 0.5-2.2 2874) BRANDI (test code = BRANDI) Child Attendant ID - HIEN M Lab Interpretation (test Normal code = 67429-5) [facility], [id number] 18:40:35 Test Item Value Reference Range Interpretation Comments Lactate, Art (test code = 2.1 mmol/L 0.5-2.2 2874) BRANDI (test code = BRANDI) Child Attendant ID - HIEN M Lab Interpretation (test Normal code = 69027-5) [facility], Onbtmekj2417-56-48 18:40:35 Test Item Value Reference Range Interpretation Comments Lactate, Art (test code = 2.1 mmol/L 0.5-2.2 2874) BRANDI (test code = BRANDI) Child Attendant ID - HIEN Lab Interpretation (test Normal code = 27216-0) [facility] Iyccgkeh4456-01-03 18:40:35 Test Item Value Reference Range Interpretation Comments Lactate, Art (test code = 2.1 mmol/L 0.5-2.2 2874) BRANDI (test code = BRANDI) Child Attendant ID - HIEN Lab Interpretation (test Normal code = 65003-8) [facility], Iiwnzkqg7830-23-13 18:40:35 Test Item Value Reference Range Interpretation Comments Lactate, Art (test code = 2.1 mmol/L 0.5-2.2 2874) BRANDI (test code = BRANDI) Child Attendant ID - HIEN M Lab Interpretation (test Normal code = 55721-3) [facility], Pjtlkgxv7975-31-98 18:40:35 Test Item Value Reference Range Interpretation Comments Lactate, Art (test code = 2.1 mmol/L 0.5-2.2 2874) BRANDI (test code = BRANDI) Child Attendant ID - HIEN M Lab Interpretation (test Normal code = 72800-1) [facility], Ppxirtjy7007-41-33 18:40:35 Test Item Value Reference Range Interpretation Comments Lactate, Art (test code = 2.1 mmol/L 0.5-2.2 2874) BRANDI (test code = BRANDI) Child Attendant ID - HIEN M Lab Interpretation (test Normal code = 02930-0) [facility], Gjcoiwvy1448-72-92 18:40:35 Test Item Value Reference Range Interpretation Comments Lactate, Art (test code = 2.1 mmol/L 0.5-2.2 2874) BRANDI (test code = BRANDI) Child Attendant ID - HIEN M Lab Interpretation (test Normal code = 08841-0) [facility], [id number] 18:40:35 Test Item Value Reference Range Interpretation Comments Lactate, Art (test code = 2.1 mmol/L 0.5-2.2 2874) BRANDI (test code = BRANDI) Child Attendant ID - HIEN M Lab Interpretation (test Normal code = 61956-7) [facility], [id number] 18:40:35 Test Item Value Reference Range Interpretation Comments Lactate, Art (test code = 2.1 mmol/L 0.5-2.2 2874) BRANDI (test code = BRANDI) Child Attendant ID - HIEN M Lab Interpretation (test Normal code = 57301-0) [facility], [id number] 18:40:35 Test Item Value Reference Range Interpretation Comments Lactate, Art (test code = 2.1 mmol/L 0.5-2.2 2874) BRANDI (test code = BRANDI) Child Attendant ID - HIEN M Lab Interpretation (test Normal code = 43124-1) [facility], [id number] 18:40:35 Test Item Value Reference Range Interpretation Comments Lactate, Art (test code = 2.1 mmol/L 0.5-2.2 2874) BRANDI (test code = BRANDI) Child Attendant ID - HIEN M Lab Interpretation (test Normal code = 01331-9) [facility], [id number] 18:40:35 Test Item Value Reference Range Interpretation Comments LACTATE BLOOD ARTERIAL (2) 2.1 mmol/L 0.5-2.2 (BEAKER) (test code = 2874) Child Attendant ID - HIEN [id number] 18:38:33 Test Item Value Reference Range Interpretation Comments PARTIAL THROMBOPLASTIN TIME 37.2 seconds 22.5-36.0 H (BEAKER) (test code = 760) PROTHROMBIN TIME/[id number] 18:37:33 Test Item Value Reference Range Interpretation Comments PROTIME (BEAKER) 16.6 seconds 11.9-14.2 H (test code = 759) INR (BEAKER) (test 1.37 See_Comment [Automat ed message] code = 370) The system bettermarks generated this result transmitted ref erence range: [...] 0-0 (test code = 413) HGB/HCT (H&H)-Stat [id number] 16:13:19 Test Item Value Reference Range Interpretation Comments Hemoglobin (test code = 10.6 See_Comment L [Au tomated message] 786-4) The system bettermarks generated this result transmitted ref erence range: 12.0 - 1 5.0 GM/DL. The refe rence range was not u sed to interpret this result as normal/abnor mal. Hematocrit (test code = 31.0 % 36.0-45.0 L 4544-3) Lab Interpretation (test Abnormal code = 03532-0) [facility] [id number] 16:13:19 Test Item Value Reference Range Interpretation Comments Hemoglobin (test code = 10.6 See_Comment L [Au tomated message] 786-4) The system bettermarks generated this result transmitted ref erence range: 12.0 - 1 5.0 GM/DL. The refe rence range was not u sed to interpret this result as normal/abnor mal. Hematocrit (test code = 31.0 % 36.0-45.0 L 4544-3) Lab Interpretation (test Abnormal code = 55930-6) [facility] [id number] 16:13:19 Test Item Value Reference Range Interpretation Comments Hemoglobin (test code = 10.6 See_Comment L [Au tomated message] 786-4) The system bettermarks generated this result transmitted ref erence range: 12.0 - 1 5.0 GM/DL. The refe rence range was not u sed to interpret this result as normal/abnor mal. Hematocrit (test code = 31.0 % 36.0-45.0 L 4544-3) Lab Interpretation (test Abnormal code = 26315-0) [facility] [id number] 16:13:19 Test Item Value Reference Range Interpretation Comments Hemoglobin (test code = 10.6 See_Comment L [Au tomated message] 786-4) The system bettermarks generated this result transmitted ref erence range: 12.0 - 1 5.0 GM/DL. The refe rence range was not u sed to interpret this result as normal/abnor mal. Hematocrit (test code = 31.0 % 36.0-45.0 L 4544-3) Lab Interpretation (test Abnormal code = 30942-6) [facility] [id number] 16:13:19 Test Item Value Reference Range Interpretation Comments Hemoglobin (test code = 10.6 See_Comment L [Au tomated message] 786-4) The system bettermarks generated this result transmitted ref erence range: 12.0 - 1 5.0 GM/DL. The refe rence range was not u sed to interpret this result as normal/abnor mal. Hematocrit (test code = 31.0 % 36.0-45.0 L 4544-3) Lab Interpretation (test Abnormal code = 41196-9) [facility] [id number] 16:13:19 Test Item Value Reference Range Interpretation Comments Hemoglobin (test code = 10.6 See_Comment L [Au tomated message] 786-4) The system bettermarks generated this result transmitted ref erence range: 12.0 - 1 5.0 GM/DL. The refe rence range was not u sed to interpret this result as normal/abnor mal. Hematocrit (test code = 31.0 % 36.0-45.0 L 4544-3) Lab Interpretation (test Abnormal code = 83404-2) [facility] [id number] 16:13:19 Test Item Value Reference Range Interpretation Comments Hemoglobin (test code = 10.6 See_Comment L [Au tomated message] 786-4) The system bettermarks generated this result transmitted ref erence range: 12.0 - 1 5.0 GM/DL. The refe rence range was not u sed to interpret this result as normal/abnor mal. Hematocrit (test code = 31.0 % 36.0-45.0 L 4544-3) Lab Interpretation (test Abnormal code = 59868-9) [facility] [id number] 16:13:19 Test Item Value Reference Range Interpretation Comments Hemoglobin (test code = 10.6 See_Comment L [Au tomated message] 786-4) The system bettermarks generated this result transmitted ref erence range: 12.0 - 1 5.0 GM/DL. The refe rence range was not u sed to interpret this result as normal/abnor mal. Hematocrit (test code = 31.0 % 36.0-45.0 L 4544-3) Lab Interpretation (test Abnormal code = 00303-7) [facility] [id number] 16:13:19 Test Item Value Reference Range Interpretation Comments Hemoglobin (test code = 10.6 See_Comment L [Au tomated message] 786-4) The system bettermarks generated this result transmitted ref erence range: 12.0 - 1 5.0 GM/DL. The refe rence range was not u sed to interpret this result as normal/abnor mal. Hematocrit (test code = 31.0 % 36.0-45.0 L 4544-3) Lab Interpretation (test Abnormal code = 11419-2) [facility] [id number] 16:13:19 Test Item Value Reference Range Interpretation Comments Hemoglobin (test code = 10.6 See_Comment L [Au tomated message] 786-4) The system bettermarks generated this result transmitted ref erence range: 12.0 - 1 5.0 GM/DL. The refe rence range was not u sed to interpret this result as normal/abnor mal. Hematocrit (test code = 31.0 % 36.0-45.0 L 4544-3) Lab Interpretation (test Abnormal code = 90077-9) [facility] [id number] 16:13:19 Test Item Value Reference Range Interpretation Comments Hemoglobin (test code = 10.6 See_Comment L [Au tomated message] 786-4) The system bettermarks generated this result transmitted ref erence range: 12.0 - 1 5.0 GM/DL. The refe rence range was not u sed to interpret this result as normal/abnor mal. Hematocrit (test code = 31.0 % 36.0-45.0 L 4544-3) Lab Interpretation (test Abnormal code = 98982-3) [facility] [id number] 16:13:19 Test Item Value Reference Range Interpretation Comments Hemoglobin (test code = 10.6 See_Comment L [Au tomated message] 786-4) The system bettermarks generated this result transmitted ref erence range: 12.0 - 1 5.0 GM/DL. The refe rence range was not u sed to interpret this result as normal/abnor mal. Hematocrit (test code = 31.0 % 36.0-45.0 L 4544-3) Lab Interpretation (test Abnormal code = 88890-7) [facility] [id number] 16:13:19 Test Item Value Reference Range Interpretation Comments Hemoglobin (test code = 10.6 See_Comment L [Au tomated message] 786-4) The system bettermarks generated this result transmitted ref erence range: 12.0 - 1 5.0 GM/DL. The refe rence range was not u sed to interpret this result as normal/abnor mal. Hematocrit (test code = 31.0 % 36.0-45.0 L 4544-3) Lab Interpretation (test Abnormal code = 00973-0) [facility] [id number] 16:13:19 Test Item Value Reference Range Interpretation Comments Hemoglobin (test code = 10.6 See_Comment L [Au tomated message] 786-4) The system bettermarks generated this result transmitted ref erence range: 12.0 - 1 5.0 GM/DL. The refe rence range was not u sed to interpret this result as normal/abnor mal. Hematocrit (test code = 31.0 % 36.0-45.0 L 4544-3) Lab Interpretation (test Abnormal code = 50368-2) [facility] [id number] 16:13:19 Test Item Value Reference Range Interpretation Comments Hemoglobin (test code = 10.6 See_Comment L [Au tomated message] 786-4) The system bettermarks generated this result transmitted ref erence range: 12.0 - 1 5.0 GM/DL. The refe rence range was not u sed to interpret this result as normal/abnor mal. Hematocrit (test code = 31.0 % 36.0-45.0 L 4544-3) Lab Interpretation (test Abnormal code = 34008-8) [facility] [id number] 16:13:19 Test Item Value Reference Range Interpretation Comments Hemoglobin (test code = 10.6 See_Comment L [Au tomated message] 786-4) The system bettermarks generated this result transmitted ref erence range: 12.0 - 1 5.0 GM/DL. The refe rence range was not u sed to interpret this result as normal/abnor mal. Hematocrit (test code = 31.0 % 36.0-45.0 L 4544-3) Lab Interpretation (test Abnormal code = 81724-1) [facility] [id number] 16:13:19 Test Item Value Reference Range Interpretation Comments Hemoglobin (test code = 10.6 See_Comment L [Au tomated message] 786-4) The system bettermarks generated this result transmitted ref erence range: 12.0 - 1 5.0 GM/DL. The refe rence range was not u sed to interpret this result as normal/abnor mal. Hematocrit (test code = 31.0 % 36.0-45.0 L 4544-3) Lab Interpretation (test Abnormal code = 68407-3) [facility] [id number] 16:13:19 Test Item Value Reference Range Interpretation Comments Hemoglobin (test code = 10.6 See_Comment L [Au tomated message] 786-4) The system bettermarks generated this result transmitted ref erence range: 12.0 - 1 5.0 GM/DL. The refe rence range was not u sed to interpret this result as normal/abnor mal. Hematocrit (test code = 31.0 % 36.0-45.0 L 4544-3) Lab Interpretation (test Abnormal code = 73610-0) [facility] - [facility] [id number] 16:13:19 Test Item Value Reference Range Interpretation Comments HEMOGLOBIN (BEAKER) (test code = 10.6 GM/DL 12.0-15.0 L 410) HEMATOCRIT (BEAKER) (test code = 31.0 % 36.0-45.0 L 411) Glucose-Stat [id number] 16:13:18 Test Item Value Reference Range Interpretation Comments Glucose (test code = 2345-7) 205 mg/dL 70-110 H Lab Interpretation (test code = Abnormal 23281-4) [facility] [id number] 16:13:18 Test Item Value Reference Range Interpretation Comments Sodium (test code = 2951-2) 134 meq/L 136-145 L Lab Interpretation (test code = Abnormal 17146-4) [facility]Gl[facility] [id number] 16:13:18 Test Item Value Reference Range Interpretation Comments Glucose (test code = 2345-7) 205 mg/dL 70-110 H Lab Interpretation (test code = Abnormal 01960-5) [facility] [id number] 16:13:18 Test Item Value Reference Range Interpretation Comments Sodium (test code = 2951-2) 134 meq/L 136-145 L Lab Interpretation (test code = Abnormal 72702-6) [facility]Gl[facility] [id number] 16:13:18 Test Item Value Reference Range Interpretation Comments Glucose (test code = 2345-7) 205 mg/dL 70-110 H Lab Interpretation (test code = Abnormal 73135-7) [facility] [id number] 16:13:18 Test Item Value Reference Range Interpretation Comments Sodium (test code = 2951-2) 134 meq/L 136-145 L Lab Interpretation (test code = Abnormal 63394-7) [facility]Glucose[facility] [id number] 16:13:18 Test Item Value Reference Range Interpretation Comments Glucose (test code = 2345-7) 205 mg/dL 70-110 H Lab Interpretation (test code = Abnormal 80116-9) [facility] [id number] 16:13:18 Test Item Value Reference Range Interpretation Comments Sodium (test code = 2951-2) 134 meq/L 136-145 L Lab Interpretation (test code = Abnormal 85625-7) [facility]Gl[facility] [id number] 16:13:18 Test Item Value Reference Range Interpretation Comments Glucose (test code = 2345-7) 205 mg/dL 70-110 H Lab Interpretation (test code = Abnormal 35312-8) [facility] Na-Stat [id number] 16:13:18 Test Item Value Reference Range Interpretation Comments Sodium (test code = 2951-2) 134 meq/L 136-145 L Lab Interpretation (test code = Abnormal 35445-8) [facility]Gl[facility] [id number] 16:13:18 Test Item Value Reference Range Interpretation Comments Glucose (test code = 2345-7) 205 mg/dL 70-110 H Lab Interpretation (test code = Abnormal 81656-5) [facility] [id number] 16:13:18 Test Item Value Reference Range Interpretation Comments Sodium (test code = 2951-2) 134 meq/L 136-145 L Lab Interpretation (test code = Abnormal 48268-6) [facility]Gl[facility] [id number] 16:13:18 Test Item Value Reference Range Interpretation Comments Glucose (test code = 2345-7) 205 mg/dL 70-110 H Lab Interpretation (test code = Abnormal 40274-4) [facility] [id number] 16:13:18 Test Item Value Reference Range Interpretation Comments Sodium (test code = 2951-2) 134 meq/L 136-145 L Lab Interpretation (test code = Abnormal 05920-1) [facility]Glucose[facility]Stat [id number] 16:13:18 Test Item Value Reference Range Interpretation Comments Glucose (test code = 2345-7) 205 mg/dL 70-110 H Lab Interpretation (test code = Abnormal 66861-4) [facility] [id number] 16:13:18 Test Item Value Reference Range Interpretation Comments Sodium (test code = 2951-2) 134 meq/L 136-145 L Lab Interpretation (test code = Abnormal 59525-8) [facility]Glucose[facility]Stat [id number] 16:13:18 Test Item Value Reference Range Interpretation Comments Glucose (test code = 2345-7) 205 mg/dL 70-110 H Lab Interpretation (test code = Abnormal 81759-1) [facility] [id number] 16:13:18 Test Item Value Reference Range Interpretation Comments Sodium (test code = 2951-2) 134 meq/L 136-145 L Lab Interpretation (test code = Abnormal 89895-4) [facility]Gl[facility] [id number] 16:13:18 Test Item Value Reference Range Interpretation Comments Glucose (test code = 2345-7) 205 mg/dL 70-110 H Lab Interpretation (test code = Abnormal 92277-0) [facility] [id number] 16:13:18 Test Item Value Reference Range Interpretation Comments Sodium (test code = 2951-2) 134 meq/L 136-145 L Lab Interpretation (test code = Abnormal 03952-3) [facility]Gl[facility] [id number] 16:13:18 Test Item Value Reference Range Interpretation Comments Glucose (test code = 2345-7) 205 mg/dL 70-110 H Lab Interpretation (test code = Abnormal 75746-1) [facility] [id number] 16:13:18 Test Item Value Reference Range Interpretation Comments Sodium (test code = 2951-2) 134 meq/L 136-145 L Lab Interpretation (test code = Abnormal 33493-7) [facility]Glucose[facility]Stat [id number] 16:13:18 Test Item Value Reference Range Interpretation Comments Glucose (test code = 2345-7) 205 mg/dL 70-110 H Lab Interpretation (test code = Abnormal 19838-7) [facility]Stat [id number] 16:13:18 Test Item Value Reference Range Interpretation Comments Sodium (test code = 2951-2) 134 meq/L 136-145 L Lab Interpretation (test code = Abnormal 20173-1) [facility]Glucose[facility]Stat [id number] 16:13:18 Test Item Value Reference Range Interpretation Comments Glucose (test code = 2345-7) 205 mg/dL 70-110 H Lab Interpretation (test code = Abnormal 27561-2) [facility] [id number] 16:13:18 Test Item Value Reference Range Interpretation Comments Sodium (test code = 2951-2) 134 meq/L 136-145 L Lab Interpretation (test code = Abnormal 25656-7) [facility]Gl[facility] [id number] 16:13:18 Test Item Value Reference Range Interpretation Comments Glucose (test code = 2345-7) 205 mg/dL 70-110 H Lab Interpretation (test code = Abnormal 77693-1) [facility] [id number] 16:13:18 Test Item Value Reference Range Interpretation Comments Sodium (test code = 2951-2) 134 meq/L 136-145 L Lab Interpretation (test code = Abnormal 56786-1) [facility]Gl[facility]Stat [id number] 16:13:18 Test Item Value Reference Range Interpretation Comments Glucose (test code = 2345-7) 205 mg/dL 70-110 H Lab Interpretation (test code = Abnormal 28974-1) [facility] [id number] 16:13:18 Test Item Value Reference Range Interpretation Comments Sodium (test code = 2951-2) 134 meq/L 136-145 L Lab Interpretation (test code = Abnormal 40967-9) [facility]Gl[facility] [id number] 16:13:18 Test Item Value Reference Range Interpretation Comments Glucose (test code = 2345-7) 205 mg/dL 70-110 H Lab Interpretation (test code = Abnormal 11074-6) [facility] [id number] 16:13:18 Test Item Value Reference Range Interpretation Comments Sodium (test code = 2951-2) 134 meq/L 136-145 L Lab Interpretation (test code = Abnormal 41855-9) [facility]Gl[facility] [id number] 16:13:18 Test Item Value Reference Range Interpretation Comments Glucose (test code = 2345-7) 205 mg/dL 70-110 H Lab Interpretation (test code = Abnormal 83422-6) [facility] [id number] 16:13:18 Test Item Value Reference Range Interpretation Comments Sodium (test code = 2951-2) 134 meq/L 136-145 L Lab Interpretation (test code = Abnormal 57141-2) [facility]Gl[facility] [id number] 16:13:18 Test Item Value Reference Range Interpretation Comments Glucose (test code = 2345-7) 205 mg/dL 70-110 H Lab Interpretation (test code = Abnormal 53235-4) [facility] [id number] 16:13:18 Test Item Value Reference Range Interpretation Comments Sodium (test code = 2951-2) 134 meq/L 136-145 L Lab Interpretation (test code = Abnormal 79522-9) [facility]OD[facility] NA-STAT [id number] 16:13:18 Test Item Value Reference Range Interpretation Comments SODIUM (BEAKER) (test code = 381) 134 meq/L 136-145 L GLUCOSE-STAT [id number] 16:13:18 Test Item Value Reference Range Interpretation Comments GLUCOSE RANDOM (BEAKER) (test code 205 mg/dL 70-110 H = 652) BLOOD GAS, [id number] 16:13:17 Test Item Value Reference Range Interpretation [...] (BEAKER) (test code = 1819) 60.0 Potassium-Stat [id number] 16:11:46 Test Item Value Reference Range Interpretation Comments Potassium (test code = 2823-3) 4.5 meq/L 3.6-5.5 Lab Interpretation (test code = Normal 50013-9) [facility] [id number] 16:11:46 Test Item Value Reference Range Interpretation Comments Potassium (test code = 2823-3) 4.5 meq/L 3.6-5.5 Lab Interpretation (test code = Normal 99266-3) [facility] [id number] 16:11:46 Test Item Value Reference Range Interpretation Comments Potassium (test code = 2823-3) 4.5 meq/L 3.6-5.5 Lab Interpretation (test code = Normal 42044-9) [facility] [id number] 16:11:46 Test Item Value Reference Range Interpretation Comments Potassium (test code = 2823-3) 4.5 meq/L 3.6-5.5 Lab Interpretation (test code = Normal 45407-1) [facility] [id number] 16:11:46 Test Item Value Reference Range Interpretation Comments Potassium (test code = 2823-3) 4.5 meq/L 3.6-5.5 Lab Interpretation (test code = Normal 19647-8) [facility] [id number] 16:11:46 Test Item Value Reference Range Interpretation Comments Potassium (test code = 2823-3) 4.5 meq/L 3.6-5.5 Lab Interpretation (test code = Normal 59335-4) [facility] [id number] 16:11:46 Test Item Value Reference Range Interpretation Comments Potassium (test code = 2823-3) 4.5 meq/L 3.6-5.5 Lab Interpretation (test code = Normal 33996-7) [facility] [id number] 16:11:46 Test Item Value Reference Range Interpretation Comments Potassium (test code = 2823-3) 4.5 meq/L 3.6-5.5 Lab Interpretation (test code = Normal 80036-5) [facility] [id number] 16:11:46 Test Item Value Reference Range Interpretation Comments Potassium (test code = 2823-3) 4.5 meq/L 3.6-5.5 Lab Interpretation (test code = Normal 87585-0) [facility] [id number] 16:11:46 Test Item Value Reference Range Interpretation Comments Potassium (test code = 2823-3) 4.5 meq/L 3.6-5.5 Lab Interpretation (test code = Normal 13980-1) [facility] [id number] 16:11:46 Test Item Value Reference Range Interpretation Comments Potassium (test code = 2823-3) 4.5 meq/L 3.6-5.5 Lab Interpretation (test code = Normal 21527-1) [facility] [id number] 16:11:46 Test Item Value Reference Range Interpretation Comments Potassium (test code = 2823-3) 4.5 meq/L 3.6-5.5 Lab Interpretation (test code = Normal 87509-5) [facility] [id number] 16:11:46 Test Item Value Reference Range Interpretation Comments Potassium (test code = 2823-3) 4.5 meq/L 3.6-5.5 Lab Interpretation (test code = Normal 58952-6) [facility] [id number] 16:11:46 Test Item Value Reference Range Interpretation Comments Potassium (test code = 2823-3) 4.5 meq/L 3.6-5.5 Lab Interpretation (test code = Normal 49123-9) [facility] [id number] 16:11:46 Test Item Value Reference Range Interpretation Comments Potassium (test code = 2823-3) 4.5 meq/L 3.6-5.5 Lab Interpretation (test code = Normal 58235-9) [facility] [id number] 16:11:46 Test Item Value Reference Range Interpretation Comments Potassium (test code = 2823-3) 4.5 meq/L 3.6-5.5 Lab Interpretation (test code = Normal 84379-0) [facility] [id number] 16:11:46 Test Item Value Reference Range Interpretation Comments Potassium (test code = 2823-3) 4.5 meq/L 3.6-5.5 Lab Interpretation (test code = Normal 08132-7) [facility] [id number] 16:11:46 Test Item Value Reference Range Interpretation Comments Potassium (test code = 2823-3) 4.5 meq/L 3.6-5.5 Lab Interpretation (test code = Normal 33879-9) [facility] [id number] 16:11:46 Test Item Value Reference Range Interpretation Comments POTASSIUM (BEAKER) (test code = 4.5 meq/L 3.6-5.5 379) CALCIUM, [id number] 16:11:08 Test Item Value Reference Range Interpretation Comments CALCIUM IONIZED (BEAKER) (test 1.16 mmol/L 1.12-1.27 code = 698) PH, BLOOD (BEAKER) (test code = 7.44 1810) Manual [id number] 16:00:23 Test Item Value Reference Range Interpretation [...] Poikilocytes (test code = 1+ few 966) [place] Cells (test code = 1+ few 474) Artifact (test code = Present 3432) Platelet Conc (test code Decreased = 3438) BRANDI (test code = BRANDI) Child Attendant ID - Liza Lu comments: Slide comments: Lab Interpretation (test Abnormal code = 03995-2) [facility] Gammmyghqain1250-88-29 16:00:23 Test Item Value Reference Range Interpretation [...] Poikilocytes (test code = 1+ few 966) [place] Cells (test code = 1+ few 474) Artifact (test code = Present 3432) Platelet Conc (test code Decreased = 3438) BRANDI (test code = BRANDI) Child Attendant ID - Liza Lu comments: Slide comments: Lab Interpretation (test Abnormal code = 90035-3) [facility] Hyvgyvgwdumo5546-54-88 16:00:23 Test Item Value Reference Range Interpretation [...] Poikilocytes (test code = 1+ few 966) [place] Cells (test code = 1+ few 474) Artifact (test code = Present 3432) Platelet Conc (test code Decreased = 3438) BRANDI (test code = BRANDI) Child Attendant ID - Liza uL comments: Slide comments: Lab Interpretation (test Abnormal code = 31479-5) [facility] Zidntvomkcye1472-72-83 16:00:23 Test Item Value Reference Range Interpretation [...] = 3438) BRANDI (test code = BRANDI) Child Attendant ID - Liza Lu comments: Slide comments: Lab Interpretation (test Abnormal code = 08848-4) [facility] Ykoktrptymnu5325-40-25 16:00:23 Test Item Value Reference Range Interpretation [...] = 3438) BRANDI (test code = BRANDI) Child Attendant ID - Liza Tabitha comments: Slide comments: Lab Interpretation (test Abnormal code = 85470-6) [facility] Qvryjpnzwnio9434-58-42 16:00:23 Test Item Value Reference Range Interpretation [...] Poikilocytes (test code = 1+ few 966) [place] Cells (test code = 1+ few 474) Artifact (test code = Present 3432) Platelet Conc (test code Decreased = 3438) BRANDI (test code = BRANDI) Child Attendant ID - Liza Lu comments: Slide comments: Lab Interpretation (test Abnormal code = 34986-9) [facility] Fxhkmfshjdvd5990-80-00 16:00:23 Test Item Value Reference Range Interpretation [...] = 3438) BRANDI (test code = BRANDI) Child Attendant ID - Liza Lu comments: Slide comments: Lab Interpretation (test Abnormal code = 18807-3) [facility] Yhczzyegqirb3715-88-80 16:00:23 Test Item Value Reference Range Interpretation [...] = 3438) BRANDI (test code = BRANDI) Child Attendant ID - Liza Tabitha comments: Slide comments: Lab Interpretation (test Abnormal code = 79155-4) [facility] Crdqhcvfaekm0299-61-55 16:00:23 Test Item Value Reference Range Interpretation [...] = 3438) BRANDI (test code = BRANDI) Child Attendant ID - Liza Lu comments: Slide comments: Lab Interpretation (test Abnormal code = 76983-9) [facility] Zsxgscpwoisw0921-47-75 16:00:23 Test Item Value Reference Range Interpretation [...] = 3438) BRANDI (test code = BRANDI) Child Attendant ID - Liza Lu comments: Slide comments: Lab Interpretation (test Abnormal code = 85208-0) [facility] Xzktswnhhlci2752-18-69 16:00:23 Test Item Value Reference Range Interpretation [...] = 3438) BRANDI (test code = BRANDI) Child Attendant ID - Liza Lu comments: Slide comments: Lab Interpretation (test Abnormal code = 28234-4) [facility] Orjnsiucrrcv5855-27-56 16:00:23 Test Item Value Reference Range Interpretation [...] = 3438) BRANDI (test code = BRANDI) Child Attendant ID - Liza Lu comments: Slide comments: Lab Interpretation (test Abnormal code = 13272-2) [facility] Nbcajolmushc9617-24-18 16:00:23 Test Item Value Reference Range Interpretation [...] = 3438) BRANDI (test code = BRANDI) Child Attendant ID - Liza Lu comments: Slide comments: Lab Interpretation (test Abnormal code = 81993-6) [facility] Gnitahvfqbhn4435-76-48 16:00:23 Test Item Value Reference Range Interpretation [...] = 3438) BRANDI (test code = BRANDI) Child Attendant ID - Liza Lu comments: Slide comments: Lab Interpretation (test Abnormal code = 67372-4) [facility] Exxutywussjt1863-48-87 16:00:23 Test Item Value Reference Range Interpretation [...] = 3438) BRANDI (test code = BRANDI) Child Attendant ID - Liza Lu comments: Slide comments: Lab Interpretation (test Abnormal code = 56415-2) [facility] Wegcwgzaouml6534-28-50 16:00:23 Test Item Value Reference Range Interpretation [...] = 3438) BRANDI (test code = BRANDI) Child Attendant ID - Liza Lu comments: Slide comments: Lab Interpretation (test Abnormal code = 50840-2) [facility] Tjymbpcigemc2636-30-16 16:00:23 Test Item Value Reference Range Interpretation [...] Poikilocytes (test code = 1+ few 966) [place] Cells (test code = 1+ few 474) Artifact (test code = Present 3432) Platelet Conc (test code Decreased = 3438) BRANDI (test code = BRANDI) Child Attendant ID - Liza Lu comments: Slide comments: Lab Interpretation (test Abnormal code = 42688-9) [facility] Owgovamzykns9081-86-31 16:00:23 Test Item Value Reference Range Interpretation Comments % Neutros (test code = 89 % 2816) % Lymphs (test code = 4 % 7) % Monos (test code = 6 % [...] = 3438) BRANDI (test code = BRANDI) Child Attendant ID - Liza Tabitha comments: Slide comments: Lab Interpretation (test Abnormal code = 57378-8) [facility](CELLAVISION MANUAL DIFF)2021-06-18 16:00:23 Test Item [...] CONCENTRATION Decreased (CELLAVISION)(BEAKER) (test code = 3438) Child Attendant ID - Liza SimmsHomar comments: Slide comments:RAD, CHEST, 1 VIEW, NON NCRP3875-08-07 15:58:00Reason for exam:->Post-opShould this be performed at the bedside?->Yes [facility] 1955 Sex: FFINAL REPORT CHEST AP PORTABLE COMPARISON STUDY: 06/10/2021 History provided: Postopevaluation ET tube in place with tip midway between clavicles and marlon. NG tip in the stomach. Right jugular [place] catheter with tip in the right main pulmonary artery. Chest tubes with no pneumothorax. Mild right basilar atelectasis with trace right pleural effusion. Lungs otherwise grossly clear and vascularity normal. Signed: Alvarez, Wero MDReport Verified Date/Time: 06/18/2021 15:58:54 Reading Location: [facility] Diagnostic Imaging Reading Room - [facility] 1.310.12 C METABOLIC [id number] 15:57:50 Test Item Value Reference Range Interpretation [...] S NOT APPLICABLE FOR DIALYSIS PATIEN TS. Child Attendant ID - HIEN DIpipamlhk-NNNH3882-58-17 15:57:19 Test Item Value Reference Range Interpretation Comments Potassium (test code = 2823-3) 4.8 meq/L 3.5-5.1 Lab Interpretation (test code = Normal 34908-7) [facility]JLTG7002-10-27 15:57:19 Test Item Value Reference Range Interpretation Comments Potassium (test code = 2823-3) 4.8 meq/L 3.5-5.1 Lab Interpretation (test code = Normal 58123-6) [facility]BRBG2675-85-77 15:57:19 Test Item Value Reference Range Interpretation Comments Potassium (test code = 2823-3) 4.8 meq/L 3.5-5.1 Lab Interpretation (test code = Normal 54926-8) [facility] 15:57:19 Test Item Value Reference Range Interpretation Comments Potassium (test code = 2823-3) 4.8 meq/L 3.5-5.1 Lab Interpretation (test code = Normal 78375-9) [facility]2022-03-17 15:57:19 Test Item Value Reference Range Interpretation Comments Potassium (test code = 2823-3) 4.8 meq/L 3.5-5.1 Lab Interpretation (test code = Normal 11762-2) [facility]2022-03-17 15:57:19 Test Item Value Reference Range Interpretation Comments Potassium (test code = 2823-3) 4.8 meq/L 3.5-5.1 Lab Interpretation (test code = Normal 59051-0) [facility]2022-03-17 15:57:19 Test Item Value Reference Range Interpretation Comments Potassium (test code = 2823-3) 4.8 meq/L 3.5-5.1 Lab Interpretation (test code = Normal 70131-3) [facility]2022-03-17 15:57:19 Test Item Value Reference Range Interpretation Comments Potassium (test code = 2823-3) 4.8 meq/L 3.5-5.1 Lab Interpretation (test code = Normal 47532-4) [facility]2022-03-17 15:57:19 Test Item Value Reference Range Interpretation Comments Potassium (test code = 2823-3) 4.8 meq/L 3.5-5.1 Lab Interpretation (test code = Normal 32160-1) [facility]2022-03-17 15:57:19 Test Item Value Reference Range Interpretation Comments Potassium (test code = 2823-3) 4.8 meq/L 3.5-5.1 Lab Interpretation (test code = Normal 13202-3) [facility]17-[facility]-97 15:57:19 Test Item Value Reference Range Interpretation Comments Potassium (test code = 2823-3) 4.8 meq/L 3.5-5.1 Lab Interpretation (test code = Normal 66635-1) [facility]-MZCF8893-07-80 15:57:19 Test Item Value Reference Range Interpretation Comments Potassium (test code = 2823-3) 4.8 meq/L 3.5-5.1 Lab Interpretation (test code = Normal 94570-2) [facility]-IJWN7456-20-56 15:57:19 Test Item Value Reference Range Interpretation Comments Potassium (test code = 2823-3) 4.8 meq/L 3.5-5.1 Lab Interpretation (test code = Normal 09932-2) [facility]EA6747-[facility]-70 15:57:19 Test Item Value Reference Range Interpretation Comments Potassium (test code = 2823-3) 4.8 meq/L 3.5-5.1 Lab Interpretation (test code = Normal 37880-3) [facility]MPVX3084-63-16 15:57:19 Test Item Value Reference Range Interpretation Comments Potassium (test code = 2823-3) 4.8 meq/L 3.5-5.1 Lab Interpretation (test code = Normal 39740-2) [facility]FXNJ5254-48-54 15:57:19 Test Item Value Reference Range Interpretation Comments Potassium (test code = 2823-3) 4.8 meq/L 3.5-5.1 Lab Interpretation (test code = Normal 35719-3) [facility]UAFO5237-91-23 15:57:19 Test Item Value Reference Range Interpretation Comments Potassium (test code = 2823-3) 4.8 meq/L 3.5-5.1 Lab Interpretation (test code = Normal 75004-1) [facility]ZRVF3872-44-29 15:57:19 Test Item Value Reference Range Interpretation Comments Potassium (test code = 2823-3) 4.8 meq/L 3.5-5.1 Lab Interpretation (test code = Normal 72637-6) [facility] 15:57[facility]19 Test Item Value Reference Range Interpretation Comments POTASSIUM (BEAKER) (test code = 4.8 meq/L 3.5-5.1 379) CXNXNAMFIW4407-36-96 15:57:19 Test Item Value Reference Range Interpretation Comments PHOSPHORUS (BEAKER) (test code = 4.9 mg/dL 2.3-4.7 H 604) Child Attendant ID - HIEN IYFDCAQIUW6130-52-89 15:57:18 Test Item Value Reference Range Interpretation Comments MAGNESIUM (BEAKER) (test code = 2.6 mg/dL 1.6-2.6 627) Child Attendant ID - HIEN [facility]ich[facility]lepare gcyoue3162-92-44 15:44:00 Test Item Value Reference Range Interpretation Comments Unit ABO (test code = O Neg 7619568) UNIT NUMBER (test code = [id number] 934-0) Status (test code = RETURNED FROM ISSUE 15100613) Blood Bank Product (test FFP code = 2263) PRODUCT CODE (test code = P0759V53 933-2) [facility] mqtvms8765-91-42 15:44:00 Test Item Value Reference Range Interpretation Comments Unit ABO (test code = O Neg 5612843) UNIT NUMBER (test code = [id number] 934-0) Status (test code = RETURNED FROM ISSUE 8136475) Blood Bank Product (test FFP code = 2263) PRODUCT CODE (test code = I9736C33 933-2) [facility] moqygj5354-15-50 15:44:00 Test Item Value Reference Range Interpretation Comments Unit ABO (test code = O Neg 4807375) UNIT NUMBER (test code = [id number] 934-0) Status (test code = RETURNED FROM ISSUE 2646769) Blood Bank Product (test FFP code = 2263) PRODUCT CODE (test code = A3136W93 933-2) [facility] glzoai9351-23-31 15:44:00 Test Item Value Reference Range Interpretation Comments Unit ABO (test code = O Neg 2447239) UNIT NUMBER (test code = A635175245455 934-0) Status (test code = RETURNED FROM ISSUE 1233235) Blood Bank Product (test FFP code = 2263) PRODUCT CODE (test code = D4590M55 933-2) [facility] mlkxkd4873-19-17 15:44:00 Test Item Value Reference Range Interpretation Comments Unit ABO (test code = O Neg 6871004) UNIT NUMBER (test code = [id number] 934-0) Status (test code = RETURNED FROM ISSUE 6202386) Blood Bank Product (test FFP code = 2263) PRODUCT CODE (test code = A0819Q07 933-2) [facility] gulmtm6573-82-41 15:44:00 Test Item Value Reference Range Interpretation Comments Unit ABO (test code = O Neg 4644298) UNIT NUMBER (test code = M656244397262 934-0) Status (test code = RETURNED FROM ISSUE 2483286) Blood Bank Product (test FFP code = 2263) PRODUCT CODE (test code = J6226Q60 933-2) [facility] spfxzh0302-87-11 15:44:00 Test Item Value Reference Range Interpretation Comments Unit ABO (test code = O Neg 6214736) UNIT NUMBER (test code = P614390352344 934-0) Status (test code = RETURNED FROM ISSUE 6170919) [facility] Product (test FFP code = 2263) PRODUCT CODE (test code = F8162J53 933-2) [facility] eacvzh0139-69-92 15:44:00 Test Item Value Reference Range Interpretation Comments Unit ABO (test code = O Neg 8869690) UNIT NUMBER (test code = [id number] 934-0) Status (test code = RETURNED FROM ISSUE 0434083) Blood Bank Product (test FFP code = 2263) PRODUCT CODE (test code = U5361A47 933-2) [facility] gxtdbb6268-01-40 15:44:00 Test Item Value Reference Range Interpretation Comments Unit ABO (test code = O Neg 3683952) UNIT NUMBER (test code = [id number] 934-0) Status (test code = RETURNED FROM ISSUE 4762573) Blood Bank Product (test FFP code = 2263) PRODUCT CODE (test code = O3000U19 933-2) [facility] dnqsyo5422-36-88 15:44:00 Test Item Value Reference Range Interpretation Comments Unit ABO (test code = O Neg 4850978) UNIT NUMBER (test code = J628232262836 934-0) Status (test code = RETURNED FROM ISSUE 7551149) Blood Bank Product (test FFP code = 2263) PRODUCT CODE (test code = V8968G67 933-2) [facility] torrmx4726-27-28 15:44:00 Test Item Value Reference Range Interpretation Comments Unit ABO (test code = O Neg 5365439) UNIT NUMBER (test code = X579813770628 934-0) Status (test code = RETURNED FROM ISSUE 0636753) Blood Bank Product (test FFP code = 2263) PRODUCT CODE (test code = C2618Z21 933-2) [facility] wcvhil5177-79-11 15:44:00 Test Item Value Reference Range Interpretation Comments Unit ABO (test code = O Neg 8807900) UNIT NUMBER (test code = X920169857658 934-0) Status (test code = RETURNED FROM ISSUE 4162724) Blood Bank Product (test FFP code = 2263) PRODUCT CODE (test code = G8203I40 933-2) [facility] ydfpjo2552-73-13 15:44:00 Test Item Value Reference Range Interpretation Comments Unit ABO (test code = O Neg 6973411) UNIT NUMBER (test code = A092711798735 934-0) Status (test code = RETURNED FROM ISSUE 7975506) Blood Bank Product (test FFP code = 2263) PRODUCT CODE (test code = M2914G25 933-2) [facility] vbqsbc3883-55-31 15:44:00 Test Item Value Reference Range Interpretation Comments Unit ABO (test code = O Neg 1978683) UNIT NUMBER (test code = J246287263159 934-0) Status (test code = RETURNED FROM ISSUE 3595863) Blood Bank Product (test FFP code = 2263) PRODUCT CODE (test code = G5149N00 933-2) [facility] ywqsag2507-00-41 15:44:00 Test Item Value Reference Range Interpretation Comments Unit ABO (test code = O Neg 3425040) UNIT NUMBER (test code = [id number] 934-0) Status (test code = RETURNED FROM ISSUE 2138570) Blood Bank Product (test FFP code = 2263) PRODUCT CODE (test code = T4566H71 933-2) [facility] qylxuk3104-17-45 15:44:00 Test Item Value Reference Range Interpretation Comments Unit ABO (test code = O Neg 3050048) UNIT NUMBER (test code = D252092090990 934-0) Status (test code = RETURNED FROM ISSUE 15100613) Blood Bank Product (test FFP code = 2263) PRODUCT CODE (test code = V6995V11 933-2) [facility] yqpztq0673-84-11 15:44:00 Test Item Value Reference Range Interpretation Comments Unit ABO (test code = O Neg 5562340) UNIT NUMBER (test code = R740003377655 934-0) Status (test code = RETURNED FROM ISSUE 15100613) Blood Bank Product (test FFP code = 2263) PRODUCT CODE (test code = I8827U18 933-2) [facility] kiquqa0771-30-80 15:44:00 Test Item Value Reference Range Interpretation Comments Unit ABO (test code = O Neg 5980132) UNIT NUMBER (test code = I278765866936 934-0) Status (test code = RETURNED FROM ISSUE 15100613) Blood Bank Product (test FFP code = 2263) PRODUCT CODE (test code = I4178Z31 933-2) [facility] 15:32:33 Test Item Value Reference Range Interpretation Comments PARTIAL THROMBOPLASTIN TIME 37.6 seconds 22.5-36.0 H (BEAKER) (test code = 760) PROTHROMBIN TIME/JWT3332-70-50 15:31:52 Test Item Value Reference Range Interpretation Comments PROTIME (BEAKER) 17.9 seconds 11.9-14.2 H (test code = 759) INR (BEAKER) (test 1.50 See_Comment [Automat ed message] code = 370) The system bettermarks generated this result transmitted ref erence range: <=5.90. The reference range was not used to int erpret this result as normal/abnormal . RECOMMENDED COUMADIN/WARFARIN INR THERAPY RANGESSTANDARD DOSE: 2.0 - 3.0 Includes: PROPHYLAXIS for venous thrombosis, systemic embolization; TREATMENT for venous thrombosis and/or pulmonary embolus.HIGH RISK: Target INR is 2.5-3.5 for patients with mechanical heart valves.CBC with platelet count + automated aesf9218-41-66 15:24:09 Test Item Value Reference Range Interpretation Comments WBC (test code = 6690-2) 16.2 See_Comment H [A utomated message] The system bettermarks generated this result transmitted ref erence range: 3.5 - 10 .5 K/L. The refe rence range was not u sed to interpret this result as normal/abnor mal. RBC (test code = 789-8) 3.33 See_Comment L [Au tomated message] The system bettermarks generated this result transmitted ref erence range: 3.93 - 5 .22 M/L. The refe rence range was not u sed to interpret this result as normal/abnor mal. MCHC (test code = 786-4) 31.8 See_Comment L [A utomated message] The system bettermarks generated this result transmitted ref erence range: [...] L [Aut omated message] 777-3) The system bettermarks generated this result transmitted ref erence range: 150 - 45 0 K/CU MM. The referen ce range was not u sed to interpret this result as normal/abnor mal. MPV (test code = 10.3 fL 9.4-12.3 67284-3) nRBC (test code = 413) 0 See_Comment [Aut omated message] The system bettermarks generated this result transmitted ref erence range: 0 - 0 /1 00 WBC. The refere nce range was not u sed to interpret this result as normal/abnor mal. Lab Interpretation (test Abnormal code = 13282-7) [facility] with platelet count + automated vlmz3730-84-90 15:24:09 Test Item Value Reference Range Interpretation Comments WBC (test code = 6690-2) 16.2 See_Comment H [A utomated message] The system bettermarks generated this result transmitted ref erence range: 3.5 - 10 .5 K/L. The refe rence range was not u sed to interpret this result as normal/abnor mal. RBC (test code = 789-8) 3.33 See_Comment L [Au tomated message] The system bettermarks generated this result transmitted ref erence range: 3.93 - 5 .22 M/L. The refe rence range was not u sed to interpret this result as normal/abnor mal. MCHC (test code = 786-4) 31.8 See_Comment L [A utomated message] The system bettermarks generated this result transmitted ref erence range: [...] L [Aut omated message] 777-3) The system bettermarks generated this result transmitted ref erence range: 150 - 45 0 K/CU MM. The referen ce range was not u sed to interpret this result as normal/abnor mal. MPV (test code = 10.3 fL 9.4-12.3 52504-9) nRBC (test code = 413) 0 See_Comment [Aut omated message] The system bettermarks generated this result transmitted ref erence range: 0 - 0 /1 00 WBC. The refere nce range was not u sed to interpret this result as normal/abnor mal. Lab Interpretation (test Abnormal code = 17120-5) [facility] & AUTO [id number] 15:24:09 Test Item Value Reference Range Interpretation [...] (BEAKER) (test code = 413) Hemoglobin and ftqjleosnm6291-48-16 15:23:11 Test Item Value Reference Range Interpretation Comments Hemoglobin (test code = 10.0 See_Comment L [Au tomated message] 786-4) The system bettermarks generated this result transmitted ref erence range: 11.2 - 1 5.7 GM/DL. The refe rence range was not u sed to interpret this result as normal/abnor mal. Hematocrit (test code = 31.4 % 34.1-44.9 L 4544-3) Lab Interpretation (test Abnormal code = 45505-4) [facility]MO[facility] AND [id number] 15:23:11 Test Item Value Reference Range Interpretation Comments HEMOGLOBIN (BEAKER) (test code = 10.0 GM/DL 11.2-15.7 L 410) HEMATOCRIT (BEAKER) (test code = 31.4 % 34.1-44.9 L 411) BLOOD GAS, [id number] 15:19:54 Test Item Value Reference Range Interpretation [...] = 1819) 75.0 HGB/HCT (H&H) - STAT [id number] 15:19:53 Test Item Value Reference Range Interpretation Comments HEMOGLOBIN (BEAKER) (test code = 10.6 GM/DL 12.0-15.0 L 410) HEMATOCRIT (BEAKER) (test code = 31.0 % 36.0-45.0 L 411) GLUCOSE-STAT [id number] 15:19:46 Test Item Value Reference Range Interpretation Comments GLUCOSE RANDOM (BEAKER) (test code 200 mg/dL 70-110 H = 652) OXYGEN SATURATION, [id number] 15:18:32 Test Item Value Reference Range Interpretation Comments O2 SATURATION (MEASURED) (BEAKER) 83.4 % (test code = 1455) POTASSIUM-STAT [id number] 15:18:10 Test Item Value Reference Range Interpretation Comments POTASSIUM (BEAKER) (test code = 4.5 meq/L 3.6-5.5 379) SODIUM NA-STAT [id number] 15:18:09 Test Item Value Reference Range Interpretation Comments SODIUM (BEAKER) (test code = 381) 136 meq/L 136-145 CALCIUM, [id number] 15:18:08 Test Item Value Reference Range Interpretation Comments CALCIUM IONIZED (BEAKER) (test 1.14 mmol/L 1.12-1.27 code = 698) PH, BLOOD (BEAKER) (test code = 7.39 1810) POC ACTIVATED CLOTTING [id number] 14:20:47 Test Item Value Reference Range Interpretation Comments Activated Clotting Time 130 sec : 74 -137 seconds, (test code = 441) Baseline: TESTED AT [address], [address]: Child Attendant/Techni kelle ID = [id number] for Me ndoza, [place] [facility] ACTIVATED CLOTTING [id number] 14:20:47 Test Item Value Reference Range Interpretation Comments Activated Clotting Time 130 sec : 74 -137 seconds, (test code = 441) Baseline: TESTED AT [address], [address]: Child Attendant/Techni kelle ID = [id number] for Me ndoza, [place] [facility] ACTIVATED CLOTTING [id number] 14:20:47 Test Item Value Reference Range Interpretation Comments Activated Clotting Time 130 sec : 74 -137 seconds, (test code = 441) Baseline: TESTED AT [address], [address]: Child Attendant/Techni kelle ID = [id number] for Me ndoza, [place] [facility] ACTIVATED CLOTTING [id number] 14:20:47 Test Item Value Reference Range Interpretation Comments Activated Clotting Time 130 sec : 74 -137 seconds, (test code = 441) Baseline: TESTED AT [address], [address]: Child Attendant/Techni kelle ID = [id number] for Me ndoza, [place] [facility] ACTIVATED CLOTTING [id number] 14:20:47 Test Item Value Reference Range Interpretation Comments Activated Clotting Time 130 sec : 74 -137 seconds, (test code = 441) Baseline: TESTED AT [address], [address]: Child Attendant/Techni kelle ID = [id number] for Me ndoza, [place] [facility] ACTIVATED CLOTTING [id number] 14:20:47 Test Item Value Reference Range Interpretation Comments Activated Clotting Time 130 sec : 74 -137 seconds, (test code = 441) Baseline: TESTED AT [address], [address]: Child Attendant/Techni kelle ID = [id number] for Me ndoza, [place] [facility] ACTIVATED CLOTTING [id number] 14:20:47 Test Item Value Reference Range Interpretation Comments Activated Clotting Time 130 sec : 74 -137 seconds, (test code = 441) Baseline: TESTED AT [address], [address]: Child Attendant/Techni kelle ID = [id number] for Me ndoza, [place] [facility] ACTIVATED CLOTTING [id number] 14:20:47 Test Item Value Reference Range Interpretation Comments Activated Clotting Time 130 sec : 74 -137 seconds, (test code = 441) Baseline: TESTED AT [address], [address]: Child Attendant/Techni kelle ID = [id number] for Me ndoza, [place] [facility] ACTIVATED CLOTTING [id number] 14:20:47 Test Item Value Reference Range Interpretation Comments Activated Clotting Time 130 sec : 74 -137 seconds, (test code = 441) Baseline: TESTED AT [address], [address]: Child Attendant/Techni kelle ID = [id number] for Me ndoza, [place] [facility] ACTIVATED CLOTTING [id number] 14:20:47 Test Item Value Reference Range Interpretation Comments Activated Clotting Time 130 sec : 74 -137 seconds, (test code = 441) Baseline: TESTED AT [address] [address], [address]: Child Attendant/Techni kelle ID = [id number] for Me ndoza, Rocky CONTRERAS [facility] ACTIVATED CLOTTING [id number] 14:20:47 Test Item Value Reference Range Interpretation Comments Activated Clotting Time 130 sec : 74 -137 seconds, (test code = 441) Baseline: TESTED AT [address], [address]: Child Attendant/Techni kelle ID = [id number] for Me ndoza, Rocky CONTRERAS [facility] ACTIVATED CLOTTING [id number] 14:20:47 Test Item Value Reference Range Interpretation Comments Activated Clotting Time 130 sec : 74 -137 seconds, (test code = 441) Baseline: TESTED AT [address], [address]: Child Attendant/Techni kelle ID = [id number] for Me ndoza, Rocky [facility] ACTIVATED CLOTTING [id number] 14:20:47 Test Item Value Reference Range Interpretation Comments Activated Clotting Time 130 sec : 74 -137 seconds, (test code = 3184-9) Baselin e: TESTED AT [address], [address]: Child Attendant/Techni kelle ID = [id number] for Me ndoza, Rocky CONTRERAS [facility] ACTIVATED CLOTTING [id number] 14:20:47 Test Item Value Reference Range Interpretation Comments Activated Clotting Time 130 sec : 74 -137 seconds, (test code = 3184-9) Baselin e: TESTED AT [address], [address]: Child Attendant/Techni kelle ID = [id number] for Me ndoza, Rocky [facility] ACTIVATED CLOTTING [id number] 14:20:47 Test Item Value Reference Range Interpretation Comments Activated Clotting Time 130 sec : 74 -137 seconds, (test code = 3184-9) Baselin e: TESTED AT [address], [address]: Child Attendant/Techni kelle ID = [id number] for Me ndoza, Rocky [facility] ACTIVATED CLOTTING [id number] 14:20:47 Test Item Value Reference Range Interpretation Comments Activated Clotting Time 130 sec : 74 -137 seconds, (test code = 3184-9) Baselin e: TESTED AT [address], [address]: Child Attendant/Techni kelle ID = [id number] for Me ndoza, Rocky CONTRERAS [facility] ACTIVATED CLOTTING [id number] 14:20:47 Test Item Value Reference Range Interpretation Comments Activated Clotting Time 130 sec : 74 -137 seconds, (test code = 441) Baseline: TESTED AT [address], [address]: Child Attendant/Techni kelle ID = [id number] for Me ndoza, Rocky CONTRERAS [facility] ACTIVATED CLOTTING [id number] 14:20:47 Test Item Value Reference Range Interpretation Comments Activated Clotting Time 130 sec : 74 -137 seconds, (test code = 441) Baseline: TESTED AT [address], [address]: Child Attendant/Techni kelle ID = [id number] [id number] 14:20:47 Test Item Value Reference Range Interpretation Comments ACTIVATED CLOTTING TIME 130 sec : 74 -137 seconds, (BEAKER) (test code = Baseli ne: TESTED AT 441) [address], [address]: Child Attendant/Techni kelle ID = [id number] for ndoza, Rocky [id number] 14:20:46 Test Item Value Reference Range Interpretation Comments ACTIVATED CLOTTING TIME 577 sec : 74 -137 seconds, (BEAKER) (test code = Baseli ne: TESTED AT 441) [address], [address]: Child Attendant/Techni kelle ID = [id number] for Me sanchezozcata, Rocky [id number] 14:20:45 Test Item Value Reference Range Interpretation Comments ACTIVATED CLOTTING TIME 743 sec : 74 -137 seconds, (BEAKER) (test code = Baseli ne: TESTED AT 441) [address], [address]: Child Attendant/Techni kelle ID = [id number] for ndoza, Rocky [id number] 14:20:45 Test Item Value Reference Range Interpretation Comments ACTIVATED CLOTTING TIME 618 sec : 74 -137 seconds, (BEAKER) (test code = Baseli ne: TESTED AT 441) [address], [address]: Child Attendant/Techni kelle ID = [id number] for ndoza, Rocky [id number] 14:20:44 Test Item Value Reference Range Interpretation Comments ACTIVATED CLOTTING TIME 547 sec : 74 -137 seconds, (BEAKER) (test code = Baseli ne: TESTED AT 441) [address], [address]: Child Attendant/Techni kelle ID = [id number] for ndoza, Rocky [id number] 14:20:12 Test Item Value Reference Range Interpretation Comments ACTIVATED CLOTTING TIME 809 sec : 74 -137 seconds, (BEAKER) (test code = Baseli ne: TESTED AT 441) [address], [address]: Child Attendant/Techni kelle ID = [id number] for Me ndoza, Rocky [id number] 13:49:05 Test Item Value Reference Range Interpretation Comments PARTIAL THROMBOPLASTIN TIME 38.3 seconds 22.5-36.0 H (BEAKER) (test code = 760) [id number] 13:48:43 Test Item Value Reference Range Interpretation Comments Fibrinogen (test code = 3255-7) 246 mg/dl 225-434 Lab Interpretation (test code = Normal 31729-0) [facility] Test Item Value Reference Range Interpretation Comments Fibrinogen (test code = 3255-7) 246 mg/dl 225-434 Lab Interpretation (test code = Normal 69203-3) [facility] 13:48:43 Test Item Value Reference Range Interpretation Comments Fibrinogen (test code = 3255-7) 246 mg/dl 225-434 Lab Interpretation (test code = Normal 60678-8) [facility] 13:48:43 Test Item Value Reference Range Interpretation Comments Fibrinogen (test code = 3255-7) 246 mg/dl 225-434 Lab Interpretation (test code = Normal 47755-4) [facility] 13:48:43 Test Item Value Reference Range Interpretation Comments Fibrinogen (test code = 3255-7) 246 mg/dl 225-434 Lab Interpretation (test code = Normal 49925-4) [facility] 13:48:43 Test Item Value Reference Range Interpretation Comments Fibrinogen (test code = 3255-7) 246 mg/dl 225-434 Lab Interpretation (test code = Normal 80804-4) [facility] 13:48:43 Test Item Value Reference Range Interpretation Comments Fibrinogen (test code = 3255-7) 246 mg/dl 225-434 Lab Interpretation (test code = Normal 85587-8) [facility] 13:48:43 Test Item Value Reference Range Interpretation Comments Fibrinogen (test code = 3255-7) 246 mg/dl 225-434 Lab Interpretation (test code = Normal 58750-5) [facility]2022-03-17 13:48:43 Test Item Value Reference Range Interpretation Comments Fibrinogen (test code = 3255-7) 246 mg/dl 225-434 Lab Interpretation (test code = Normal 84689-4) [place] [id number] 13:48:43 Test Item Value Reference Range Interpretation Comments Fibrinogen (test code = 3255-7) 246 mg/dl 225-434 Lab Interpretation (test code = Normal 97793-9) [facility]2022-03-17 13:48:43 Test Item Value Reference Range Interpretation Comments Fibrinogen (test code = 3255-7) 246 mg/dl 225-434 Lab Interpretation (test code = Normal 54461-0) [place] [id number] 13:48:43 Test Item Value Reference Range Interpretation Comments Fibrinogen (test code = 3255-7) 246 mg/dl 225-434 Lab Interpretation (test code = Normal 65613-2) [facility]2022-03-17 13:48:43 Test Item Value Reference Range Interpretation Comments Fibrinogen (test code = 3255-7) 246 mg/dl 225-434 Lab Interpretation (test code = Normal 30225-8) [facility]2022-03-17 13:48:43 Test Item Value Reference Range Interpretation Comments Fibrinogen (test code = 3255-7) 246 mg/dl 225-434 Lab Interpretation (test code = Normal 03663-4) [facility]2022-03-17 13:48:43 Test Item Value Reference Range Interpretation Comments Fibrinogen (test code = 3255-7) 246 mg/dl 225-434 Lab Interpretation (test code = Normal 18346-6) [place] [id number] 13:48:43 Test Item Value Reference Range Interpretation Comments Fibrinogen (test code = 3255-7) 246 mg/dl 225-434 Lab Interpretation (test code = Normal 70536-4) [place] [id number] 13:48:43 Test Item Value Reference Range Interpretation Comments Fibrinogen (test code = 3255-7) 246 mg/dl 225-434 Lab Interpretation (test code = Normal 30644-3) [facility] 13:48:43 Test Item Value Reference Range Interpretation Comments Fibrinogen (test code = 3255-7) 246 mg/dl 225-434 Lab Interpretation (test code = Normal 05819-6) [facility] 13:48:43 Test Item Value Reference Range Interpretation Comments FIBRINOGEN LEVEL (BEAKER) (test 246 mg/dl 225-434 code = 658) PROTHROMBIN TIME/[id number] 13:48:05 Test Item Value Reference Range Interpretation Comments PROTIME (BEAKER) 19.5 seconds 11.9-14.2 H (test code = 759) INR (BEAKER) (test 1.67 See_Comment [Automat ed message] code = 370) The system bettermarks generated this result transmitted ref erence range: <=5.90. The reference range was not used to int erpret this result as normal/abnormal . RECOMMENDED COUMADIN/WARFARIN INR THERAPY RANGESSTANDARD DOSE: 2.0 - 3.0 Includes: PROPHYLAXIS for venous thrombosis, systemic embolization; TREATMENT for venous thrombosis and/or pulmonary embolus.HIGH RISK: Target INR is 2.5-3.5 for patients with mechanical heart valves.Platelet [id number] 13:39:36 Test Item Value Reference Range Interpretation Comments Platelets (test code 133 See_Comment L [Autom ated = 777-3) message] The system which generated this result transmit levi reference range : 150 - 450 K/CU MM. The reference range was not u sed to interpret th is result as normal/abnormal . BRANDI (test code = BRANDI) Child Attendant ID - [id number] Lab Interpretation Abnormal (test code = 46871-0) [facility] [id number] 13:39:36 Test Item Value Reference Range Interpretation Comments Platelets (test code 133 See_Comment L [Autom ated = 777-3) message] The system which generated this result transmit levi reference range : 150 - 450 K/CU MM. The reference range was not u sed to interpret th is result as normal/abnormal . BRANDI (test code = BRANDI) Child Attendant ID - [id number] Lab Interpretation Abnormal (test code = 75304-8) [facility] [id number] 13:39:36 Test Item Value Reference Range Interpretation Comments Platelets (test code 133 See_Comment L [Autom ated = 777-3) message] The system which generated this result transmit levi reference range : 150 - 450 K/CU MM. The reference range was not u sed to interpret th is result as normal/abnormal . BRANDI (test code = BRANDI) Child Attendant ID - [id number] Lab Interpretation Abnormal (test code = 03696-6) [facility] [id number] 13:39:36 Test Item Value Reference Range Interpretation Comments Platelets (test code 133 See_Comment L [Autom ated = 777-3) message] The system which generated this result transmit levi reference range : 150 - 450 K/CU MM. The reference range was not u sed to interpret th is result as normal/abnormal . BRANDI (test code = BRANDI) Child Attendant ID - [id number] Lab Interpretation Abnormal (test code = 29499-7) [id number] 13:39:36 Test Item Value Reference Range Interpretation Comments Platelets (test code 133 See_Comment L [Autom ated = 777-3) message] The system which generated this result transmit levi reference range : 150 - 450 K/CU MM. The reference range was not u sed to interpret th is result as normal/abnormal . BRANDI (test code = BRANDI) Child Attendant ID - [id number] Lab Interpretation Abnormal (test code = 19395-1) [facility] [id number] 13:39:36 Test Item Value Reference Range Interpretation Comments Platelets (test code 133 See_Comment L [Autom ated = 777-3) message] The system which generated this result transmit levi reference range : 150 - 450 K/CU MM. The reference range was not u sed to interpret th is result as normal/abnormal . BRANDI (test code = BRANDI) Child Attendant ID - [id number] Lab Interpretation Abnormal (test code = 12203-1) [facility] [id number] 13:39:36 Test Item Value Reference Range Interpretation Comments Platelets (test code 133 See_Comment L [Autom ated = 777-3) message] The system which generated this result transmit levi reference range : 150 - 450 K/CU MM. The reference range was not u sed to interpret th is result as normal/abnormal . BRANDI (test code = BRANDI) Child Attendant ID - 6000 Lab Interpretation Abnormal (test code = 00022-1) [facility] [id number] 13:39:36 Test Item Value Reference Range Interpretation Comments Platelets (test code 133 See_Comment L [Autom ated = 777-3) message] The system which generated this result transmit levi reference range : 150 - 450 K/CU MM. The reference range was not u sed to interpret th is result as normal/abnormal . BRANDI (test code = BRANDI) Child Attendant ID - 6000 Lab Interpretation Abnormal (test code = 53864-7) [facility] [id number] 13:39:36 Test Item Value Reference Range Interpretation Comments Platelets (test code 133 See_Comment L [Autom ated = 777-3) message] The system which generated this result transmit levi reference range : 150 - 450 K/CU MM. The reference range was not u sed to interpret th is result as normal/abnormal . BRANDI (test code = BRANDI) Child Attendant ID - [id number] Lab Interpretation Abnormal (test code = 78294-7) [facility] [id number] 13:39:36 Test Item Value Reference Range Interpretation Comments Platelets (test code 133 See_Comment L [Autom ated = 777-3) message] The system which generated this result transmit levi reference range : 150 - 450 K/CU MM. The reference range was not u sed to interpret th is result as normal/abnormal . BRANDI (test code = BRANDI) Child Attendant ID - 6000 Lab Interpretation Abnormal (test code = 54521-0) [facility] [id number] 13:39:36 Test Item Value Reference Range Interpretation Comments Platelets (test code 133 See_Comment L [Autom ated = 777-3) message] The system which generated this result transmit levi reference range : 150 - 450 K/CU MM. The reference range was not u sed to interpret th is result as normal/abnormal . BRANDI (test code = BRANDI) Child Attendant ID - 6000 Lab Interpretation Abnormal (test code = 04735-0) [facility] [id number] 13:39:36 Test Item Value Reference Range Interpretation Comments Platelets (test code 133 See_Comment L [Autom ated = 777-3) message] The system which generated this result transmit levi reference range : 150 - 450 K/CU MM. The reference range was not u sed to interpret th is result as normal/abnormal . BRANDI (test code = BRANDI) Child Attendant ID - 6000 Lab Interpretation Abnormal (test code = 14876-5) [facility] [id number] 13:39:36 Test Item Value Reference Range Interpretation Comments Platelets (test code 133 See_Comment L [Autom ated = 777-3) message] The system which generated this result transmit levi reference range : 150 - 450 K/CU MM. The reference range was not u sed to interpret th is result as normal/abnormal . BRANDI (test code = BRANDI) Child Attendant ID - 6000 Lab Interpretation Abnormal (test code = 69026-6) [facility] [id number] 13:39:36 Test Item Value Reference Range Interpretation Comments Platelets (test code 133 See_Comment L [Autom ated = 777-3) message] The system which generated this result transmit levi reference range : 150 - 450 K/CU MM. The reference range was not u sed to interpret th is result as normal/abnormal . BRANDI (test code = BRANDI) Child Attendant ID - 6000 Lab Interpretation Abnormal (test code = 25007-1) [facility] [id number] 13:39:36 Test Item Value Reference Range Interpretation Comments Platelets (test code 133 See_Comment L [Autom ated = 777-3) message] The system which generated this result transmit levi reference range : 150 - 450 K/CU MM. The reference range was not u sed to interpret th is result as normal/abnormal . BRANDI (test code = BRANDI) Child Attendant ID - 6000 Lab Interpretation Abnormal (test code = 09487-2) [facility] [id number] 13:39:36 Test Item Value Reference Range Interpretation Comments Platelets (test code 133 See_Comment L [Autom ated = 777-3) message] The system which generated this result transmit levi reference range : 150 - 450 K/CU MM. The reference range was not u sed to interpret th is result as normal/abnormal . BRANDI (test code = BRANDI) Child Attendant ID - 6000 Lab Interpretation Abnormal (test code = 97810-8) [facility] [id number] 13:39:36 Test Item Value Reference Range Interpretation Comments Platelets (test code 133 See_Comment L [Autom ated = 777-3) message] The system which generated this result transmit levi reference range : 150 - 450 K/CU MM. The reference range was not u sed to interpret th is result as normal/abnormal . BRANDI (test code = BRANDI) Child Attendant ID - 6000 Lab Interpretation Abnormal (test code = 63566-8) [facility] [id number] 13:39:36 Test Item Value Reference Range Interpretation Comments Platelets (test code 133 See_Comment L [Autom ated = 777-3) message] The system which generated this result transmit levi reference range : 150 - 450 K/CU MM. The reference range was not u sed to interpret th is result as normal/abnormal . BRANDI (test code = BRANDI) Child Attendant ID - 6000 Lab Interpretation Abnormal (test code = 81087-2) [facility] [id number] 13:39:36 Test Item Value Reference Range Interpretation Comments PLATELET COUNT (BEAKER) (test 133 K/CU MM 150-450 L code = 756) Child Attendant ID - 6000HGB/HCT (H&H) - STAT [id number] 13:26:47 Test Item Value Reference Range Interpretation Comments HEMOGLOBIN (BEAKER) (test code = 7.4 GM/DL 12.0-15.0 L 410) HEMATOCRIT (BEAKER) (test code = 22.0 % 36.0-45.0 L 411) GLUCOSE-STAT [id number] 13:26:46 Test Item Value Reference Range Interpretation Comments GLUCOSE RANDOM (BEAKER) (test code 199 mg/dL 70-110 H = 652) SODIUM NA-STAT [id number] 13:26:46 Test Item Value Reference Range Interpretation Comments SODIUM (BEAKER) (test code = 381) 134 meq/L 136-145 L CALCIUM, [id number] 13:26:40 Test Item Value Reference Range Interpretation Comments CALCIUM IONIZED (BEAKER) (test 1.03 mmol/L 1.12-1.27 L code = 698) PH, BLOOD (BEAKER) (test code = 7.33 1810) BLOOD GAS, [id number] 13:26:34 Test Item Value Reference Range Interpretation [...] (BEAKER) (test code = 1819) 100.0 POTASSIUM-STAT [id number] 13:24:59 Test Item Value Reference Range Interpretation Comments POTASSIUM (BEAKER) (test code = 4.5 meq/L 3.6-5.5 379) PLATELET [id number] 13:18:08 Test Item Value Reference Range Interpretation Comments PLATELET COUNT (BEAKER) (test code 53 K/CU MM 150-450 L = 756) Child Attendant ID - 6000Operator ID - 6000Operator ID - [id number] 12:53:55 Test Item Value Reference Range Interpretation Comments PARTIAL THROMBOPLASTIN TIME > seconds 22.5-36.0 HH (BEAKER) (test code = 760) [id number] 12:36:04 Test Item Value Reference Range Interpretation Comments FIBRINOGEN LEVEL (BEAKER) (test 289 mg/dl 225-434 code = 658) PROTHROMBIN [id number] 12:35:28 Test Item Value Reference Range Interpretation Comments PROTIME (BEAKER) 25.4 seconds 11.9-14.2 H (test code = 759) INR (BEAKER) (test 2.35 See_Comment [Automat ed message] code = 370) The system bettermarks generated this result transmitted ref erence range: <=5.90. The reference range was not used to int erpret this result as normal/abnormal . RECOMMENDED COUMADIN/WARFARIN INR THERAPY RANGESSTANDARD DOSE: 2.0 - 3.0 Includes: PROPHYLAXIS for venous thrombosis, systemic embolization; TREATMENT for venous thrombosis and/or pulmonary embolus.HIGH RISK: Target INR is 2.5-3.5 for patients with mechanical heart valves.HGB/HCT (H&H) - STAT [id number] 12:28:06 Test Item Value Reference Range Interpretation Comments HEMOGLOBIN (BEAKER) (test code = 9.3 GM/DL 12.0-15.0 L 410) HEMATOCRIT (BEAKER) (test code = 27.0 % 36.0-45.0 L 411) SODIUM NA-STAT [id number] 12:28:05 Test Item Value Reference Range Interpretation Comments SODIUM (BEAKER) (test code = 381) 133 meq/L 136-145 L GLUCOSE-STAT [id number] 12:28:05 Test Item Value Reference Range Interpretation Comments GLUCOSE RANDOM (BEAKER) (test code 189 mg/dL 70-110 H = 652) BLOOD GAS, [id number] 12:28:04 Test Item Value Reference Range Interpretation [...] (BEAKER) (test code = 1819) 75.0 POTASSIUM-STAT [id number] 12:27:48 Test Item Value Reference Range Interpretation Comments POTASSIUM (BEAKER) (test code = 5.5 meq/L 3.6-5.5 379) BLOOD GAS, [id number] 11:48:59 Test Item Value Reference Range Interpretation [...] (BEAKER) (test code = 1819) 70.0 GLUCOSE-STAT [id number] 11:47:10 Test Item Value Reference Range Interpretation Comments GLUCOSE RANDOM (BEAKER) (test code 186 mg/dL 70-110 H = 652) HGB/HCT (H&H) - STAT [id number] 11:47:10 Test Item Value Reference Range Interpretation Comments HEMOGLOBIN (BEAKER) (test code = 8.9 GM/DL 12.0-15.0 L 410) HEMATOCRIT (BEAKER) (test code = 26.0 % 36.0-45.0 L 411) SODIUM NA-STAT [id number] 11:47:09 Test Item Value Reference Range Interpretation Comments SODIUM (BEAKER) (test code = 381) 133 meq/L 136-145 L POTASSIUM-STAT [id number] 11:46:29 Test Item Value Reference Range Interpretation Comments POTASSIUM (BEAKER) (test code = 5.3 meq/L 3.6-5.5 379) HGB/HCT (H&H) - STAT [id number] 11:17:46 Test Item Value Reference Range Interpretation Comments HEMOGLOBIN (BEAKER) (test code = 9.6 GM/DL 12.0-15.0 L 410) HEMATOCRIT (BEAKER) (test code = 28.0 % 36.0-45.0 L 411) SODIUM NA-STAT [id number] 11:17:45 Test Item Value Reference Range Interpretation Comments SODIUM (BEAKER) (test code = 381) 133 meq/L 136-145 L BLOOD GAS, [id number] 11:17:39 Test Item Value Reference Range Interpretation [...] (BEAKER) (test code = 1819) 70.0 GLUCOSE-STAT [id number] 11:17:39 Test Item Value Reference Range Interpretation Comments GLUCOSE RANDOM (BEAKER) (test code 171 mg/dL 70-110 H = 652) POTASSIUM-STAT [id number] 11:17:36 Test Item Value Reference Range Interpretation Comments POTASSIUM (BEAKER) (test code = 5.1 meq/L 3.6-5.5 379) HGB/HCT (H&H) - STAT [id number] 10:50:26 Test Item Value Reference Range Interpretation Comments HEMOGLOBIN (BEAKER) (test code = 8.4 GM/DL 12.0-15.0 L 410) HEMATOCRIT (BEAKER) (test code = 25.0 % 36.0-45.0 L 411) SODIUM NA-STAT [id number] 10:50:25 Test Item Value Reference Range Interpretation Comments SODIUM (BEAKER) (test code = 381) 133 meq/L 136-145 L GLUCOSE-STAT [id number] 10:50:25 Test Item Value Reference Range Interpretation Comments GLUCOSE RANDOM (BEAKER) (test code 134 mg/dL 70-110 H = 652) BLOOD GAS, [id number] 10:50:24 Test Item Value Reference Range Interpretation [...] (BEAKER) (test code = 1819) 100.0 POTASSIUM-STAT [id number] 10:49:45 Test Item Value Reference Range Interpretation Comments POTASSIUM (BEAKER) (test code = 3.8 meq/L 3.6-5.5 379) Hemoglobin [id number] 09:30:26 Test Item Value Reference Range Interpretation [...] ADM Lab Interpretation Abnormal (test code = 88167-0) [facility] [id number] 09:30:26 Test Item Value Reference Range Interpretation [...] ADM Lab Interpretation Abnormal (test code = 09835-9) [facility] [id number] 09:30:26 Test Item Value Reference Range Interpretation [...] ADM Lab Interpretation Abnormal (test code = 71351-1) [facility] [id number] 09:30:26 Test Item Value Reference Range Interpretation [...] ADM Lab Interpretation Abnormal (test code = 01873-3) [facility] [id number] 09:30:26 Test Item Value Reference Range Interpretation [...] ADM Lab Interpretation Abnormal (test code = 12554-8) [facility] [id number] 09:30:26 Test Item Value Reference Range Interpretation [...] ADM Lab Interpretation Abnormal (test code = 52367-8) [facility] [id number] 09:30:26 Test Item Value Reference Range Interpretation [...] ADM Lab Interpretation Abnormal (test code = 86658-1) [facility] [id number] 09:30:26 Test Item Value Reference Range Interpretation [...] ADM Lab Interpretation Abnormal (test code = 03842-6) [facility] [id number] 09:30:26 Test Item Value Reference Range Interpretation [...] ADM Lab Interpretation Abnormal (test code = 16800-9) [facility] [id number] 09:30:26 Test Item Value Reference Range Interpretation [...] ADM Lab Interpretation Abnormal (test code = 03620-9) [facility] [id number] 09:30:26 Test Item Value Reference Range Interpretation [...] ADM Lab Interpretation Abnormal (test code = 06853-7) [facility] [id number] 09:30:26 Test Item Value Reference Range Interpretation [...] ADM Lab Interpretation Abnormal (test code = 09614-8) [facility] [id number] 09:30:26 Test Item Value Reference Range Interpretation [...] ADM Lab Interpretation Abnormal (test code = 95951-5) [facility] [id number] 09:30:26 Test Item Value Reference Range Interpretation [...] ADM Lab Interpretation Abnormal (test code = 39318-4) [facility] [id number] 09:30:26 Test Item Value Reference Range Interpretation [...] ADM Lab Interpretation Abnormal (test code = 03558-1) [facility] [id number] 09:30:26 Test Item Value Reference Range Interpretation [...] ADM Lab Interpretation Abnormal (test code = 48385-8) [facility] [id number] 09:30:26 Test Item Value Reference Range Interpretation [...] ADM Lab Interpretation Abnormal (test code = 08228-8) [facility] [id number] 09:30:26 Test Item Value Reference Range Interpretation [...] ADM Lab Interpretation Abnormal (test code = 53983-7) [facility] [id number] 09:30:26 Test Item Value Reference Range Interpretation [...] 5.7- 6.4% indicates increased risk for diabetes (prediabetes)."Child Attendant ID - ADM HGB/HCT (H&H) - STAT [id number] 09:13:03 Test Item Value Reference Range Interpretation Comments HEMOGLOBIN (BEAKER) (test code = 9.0 GM/DL 12.0-15.0 L 410) HEMATOCRIT (BEAKER) (test code = 26.0 % 36.0-45.0 L 411) SODIUM NA-STAT [id number] 09:13:02 Test Item Value Reference Range Interpretation Comments SODIUM (BEAKER) (test code = 381) 134 meq/L 136-145 L GLUCOSE-STAT [id number] 09:13:02 Test Item Value Reference Range Interpretation Comments GLUCOSE RANDOM (BEAKER) (test code 112 mg/dL 70-110 H = 652) BLOOD GAS, [id number] 09:13:01 Test Item Value Reference Range Interpretation [...] (BEAKER) (test code = 1819) 100.0 CALCIUM, [id number] 09:13:00 Test Item Value Reference Range Interpretation Comments CALCIUM IONIZED (BEAKER) (test 1.09 mmol/L 1.12-1.27 L code = 698) PH, BLOOD (BEAKER) (test code = 7.46 1810) POTASSIUM-STAT [id number] 09:12:15 Test Item Value Reference Range Interpretation Comments POTASSIUM (BEAKER) (test code = 3.7 meq/L 3.6-5.5 379) BASIC METABOLIC [id number] 07:11:03 Test Item Value Reference Range Interpretation [...] S NOT APPLICABLE FOR DIALYSIS PATIEN TS. Child Attendant ID - HIEN [id number] 06:29:42 Test Item Value Reference Range Interpretation Comments PHOSPHORUS (BEAKER) (test code = 4.7 mg/dL 2.3-4.7 604) Child Attendant ID - HIEN [id number] 06:29:41 Test Item Value Reference Range Interpretation Comments MAGNESIUM (BEAKER) (test code = 2.0 mg/dL 1.6-2.6 627) Child Attendant ID - HIEN [facility] W/PLT COUNT & AUTO [id number] 06:04:09 Test Item Value Reference Range Interpretation [...] code = 2801) RAD, ABDOMEN/KUB, 1 VIEW [id number] 02:55:00Reason for exam:->abdominal painCH[facility]Name: [facility] : 1955 [...] is no acute bony abnormality. Signed: [facility] Verified Date/Time: 06/18/2021 02:55:15 POCT-GLUCOSE [id number] 21:39:12 Test Item Value Reference Range Interpretation Comments POC-GLUCOSE METER 135 mg/dL 70-110 H : TESTED A T [facility] 6720 (BEAKER) (test code = [place]UD[place], 1538) [address]: Child Attendant/Techni kelle ID = [id number] for Eliezer Jerome HEMOGLOBIN AND [id number] 21:31:20 Test Item Value Reference Range Interpretation Comments HEMOGLOBIN ([place]) (test code = 6.9 GM/DL 11.2-15.7 L 410) HEMATOCRIT (BEAKER) (test code = 21.8 % 34.1-44.9 L 411) Child Attendant ID - [id number] ID - [id number], [id number] 18:33:00Unlisted Reason for Exam - Click Yes and Enter Reason Below->NoIs this for enterography?->NoPlease specify:->Renal Stone Protocolalso look for spleen if there is any infarct causing left flankpainWill this procedure require oral contrast?->NoDIANE DAVIES C[facility]USName: JAK MERRILL : 1955 Sex: FFINAL [...] Gregorio Verified Date/Time: 06/17/2021 18:33:28 Reading Location: [facility] C013T Transitional Reading Room Comprehensive metabolic [id number] 16:18:22 Test Item Value Reference Range Interpretation Comments Protein, Total (test 7.0 See_Comment [Autom ated code = 2885-2) message] The system which generated this result transmit levi reference range : 6.0 - 8.3 gm/dL . The reference range was not u sed to interpret th is result as normal/abnormal . Albumin (test code = 2.7 g/dL 3.5-5.0 L 33203-2) Alkaline Phosphatase 99 U/L 40-150 (test code [...] Calcium (test code = 8.4 mg/dL 8.4-10.2 72337-6) AST (test code = 17 U/L 5-34 1920-8) ALT (test code = 10 U/L 6-55 1742-6) EGFR (test code = 11 mL/min/1.[place] [address]-8) NOT ACCURATE CREATININE CLEARANCE IN PREDICTING GLOMERULAR FILTRATION RATE . ESTIMATED GFR I S NOT APPLICABLE FOR DIALYSIS PATIEN TS. BRANDI (test code = BRANDI) Child Attendant ID - BS Lab Interpretation Abnormal (test code = 22754-0) [facility]Com[facility] [id number] 16:18:22 Test Item Value Reference Range Interpretation Comments Protein, Total (test 7.0 See_Comment [Autom ated code = 2885-2) message] The system which generated this result transmit levi reference range : 6.0 - 8.3 gm/dL . The reference range was not u sed to interpret th is result as normal/abnormal . Albumin (test code = 2.7 g/dL 3.5-5.0 L 94830-2) Alkaline Phosphatase 99 U/L 40-150 (test code [...] Calcium (test code = 8.4 mg/dL 8.4-10.2 74781-4) AST (test code = 17 U/L 5-34 1920-8) ALT (test code = 10 U/L 6-55 1742-6) EGFR (test code = 11 mL/min/1.[place] [address]-0) NOT ACCURATE CREATININE CLEARANCE IN PREDICTING GLOMERULAR FILTRATION RATE . ESTIMATED GFR I S NOT APPLICABLE FOR DIALYSIS PATIEN TSEsvin BRANDI (test code = BRANDI) Child Attendant ID - BS Lab Interpretation Abnormal (test code = 58662-4) [facility]Com[facility] [id number] 16:18:22 Test Item Value Reference Range Interpretation Comments Protein, Total (test 7.0 See_Comment [Autom ated code = 2885-2) message] The system which generated this result transmit levi reference range : 6.0 - 8.3 gm/dL . The reference range was not u sed to interpret th is result as normal/abnormal . Albumin (test code = 2.7 g/dL 3.5-5.0 L 18518-7) Alkaline Phosphatase 99 U/L 40-150 (test code [...] Calcium (test code = 8.4 mg/dL 8.4-10.2 45760-3) AST (test code = 17 U/L 5-34 1920-8) ALT (test code = 10 U/L 6-55 1742-6) EGFR (test code = 11 mL/min/1.73 sq m [place] [address]-9) NOT ACCURATE CREATININE CLEARANCE IN PREDICTING GLOMERULAR FILTRATION RATE . ESTIMATED GFR I S NOT APPLICABLE FOR DIALYSIS PATIEN TS. BRANDI (test code = BRANDI) Child Attendant ID - BS Lab Interpretation Abnormal (test code = 89630-4) [facility]Com[facility] [id number] 16:18:22 Test Item Value Reference Range Interpretation Comments Protein, Total (test 7.0 See_Comment [Autom ated code = 2885-2) message] The system which generated this result transmit levi reference range : 6.0 - 8.3 gm/dL . The reference range was not u sed to interpret th is result as normal/abnormal . Albumin (test code = 2.7 g/dL 3.5-5.0 L 95792-7) Alkaline Phosphatase 99 U/L 40-150 (test code [...] Calcium (test code = 8.4 mg/dL 8.4-10.2 71755-6) AST (test code = 17 U/L 34 192-8) ALT (test code = 10 U/L 6-55 1742-6) EGFR (test code = 11 mL/min/1.[place] [address]-9) NOT ACCURATE CREATININE CLEARANCE IN PREDICTING GLOMERULAR FILTRATION RATE . ESTIMATED GFR I S NOT APPLICABLE FOR DIALYSIS PATIEN BRANDI (test code = BRANDI) Child Attendant ID - BS Lab Interpretation Abnormal (test code = 86137-4) [facility]Com[facility] [id number] 16:18:22 Test Item Value Reference Range Interpretation Comments Protein, Total (test 7.0 See_Comment [Autom ated code = 2885-2) message] The system which generated this result transmit levi reference range : 6.0 - 8.3 gm/dL . The reference range was not u sed to interpret th is result as normal/abnormal . Albumin (test code = 2.7 g/dL 3.5-5.0 L 53349-8) Alkaline Phosphatase 99 U/L 40-150 (test code [...] Calcium (test code = 8.4 mg/dL 8.4-10.2 08516-8) AST (test code = 17 U/L -1919-8) ALT (test code = 10 U/L 1741-6) EGFR (test code = 11 mL/min/1.[place] [address]-1) NOT ACCURATE CREATININE CLEARANCE IN PREDICTING GLOMERULAR FILTRATION RATE . ESTIMATED GFR I S NOT APPLICABLE FOR DIALYSIS PATIEN BRANDI (test code = BRANDI) Child Attendant ID - BS Lab Interpretation Abnormal (test code = 26377-5) [facility] [id number] 16:18:22 Test Item Value Reference Range Interpretation Comments Protein, Total (test 7.0 See_Comment [Autom ated code = 2885-2) message] The system which generated this result transmit levi reference range : 6.0 - 8.3 gm/dL . The reference range was not u sed to interpret th is result as normal/abnormal . Albumin (test code = 2.7 g/dL 3.5-5.0 L 21948-9) Alkaline Phosphatase 99 U/L 40-150 (test code [...] Calcium (test code = 8.4 mg/dL 8.4-10.2 88677-2) AST (test code = 17 U/L -34 1919-8) ALT (test code = 10 U/L 1741-6) EGFR (test code = 11 mL/min/1.[place] [address]-1) NOT ACCURATE CREATININE CLEARANCE IN PREDICTING GLOMERULAR FILTRATION RATE . ESTIMATED GFR I S NOT APPLICABLE FOR DIALYSIS PATIEN TSEsvin BRANDI (test code = BRANDI) Child Attendant ID - BS Lab Interpretation Abnormal (test code = 72202-1) [facility] [id number] 16:18:22 Test Item Value Reference Range Interpretation Comments Protein, Total (test 7.0 See_Comment [Autom ated code = 2885-2) message] The system which generated this result transmit levi reference range : 6.0 - 8.3 gm/dL . The reference range was not u sed to interpret th is result as normal/abnormal . Albumin (test code = 2.7 g/dL 3.5-5.0 L 59898-1) Alkaline Phosphatase 99 U/L 40-150 (test code [...] Calcium (test code = 8.4 mg/dL 8.4-10.2 52169-2) AST (test code = 17 U/L 5-34 1920-8) ALT (test code = 10 U/L 6-55 1742-6) EGFR (test code = 11 mL/min/1.[place] [address]-7) NOT ACCURATE CREATININE CLEARANCE IN PREDICTING GLOMERULAR FILTRATION RATE . ESTIMATED GFR I S NOT APPLICABLE FOR DIALYSIS PATIEN TSEsvin BRANDI (test code = BRANDI) Child Attendant ID - BS Lab Interpretation Abnormal (test code = 40513-6) [facility] [id number] 16:18:22 Test Item Value Reference Range Interpretation Comments Protein, Total (test 7.0 See_Comment [Autom ated code = 2885-2) message] The system which generated this result transmit levi reference range : 6.0 - 8.3 gm/dL . The reference range was not u sed to interpret th is result as normal/abnormal . Albumin (test code = 2.7 g/dL 3.5-5.0 L 36200-4) Alkaline Phosphatase 99 U/L 40-150 (test code [...] Calcium (test code = 8.4 mg/dL 8.4-10.2 16549-2) AST (test code = 17 U/L 5-34 1920-8) ALT (test code = 10 U/L 6-55 1742-6) EGFR (test code = 11 mL/min/1.73 sq m [place] [address]-9) NOT ACCURATE CREATININE CLEARANCE IN PREDICTING GLOMERULAR FILTRATION RATE . ESTIMATED GFR I S NOT APPLICABLE FOR DIALYSIS PATIEN TS. BRANDI (test code = BRANDI) Child Attendant ID - BS Lab Interpretation Abnormal (test code = 78125-5) [facility] [id number] 16:18:22 Test Item Value Reference Range Interpretation Comments Protein, Total (test 7.0 See_Comment [Autom ated code = 2885-2) message] The system which generated this result transmit levi reference range : 6.0 - 8.3 gm/dL . The reference range was not u sed to interpret th is result as normal/abnormal . Albumin (test code = 2.7 g/dL 3.5-5.0 L 35481-6) Alkaline Phosphatase 99 U/L 40-150 (test code [...] Calcium (test code = 8.4 mg/dL 8.4-10.2 74830-0) AST (test code = 17 U/L 5-34 1920-8) ALT (test code = 10 U/L 6-55 1742-6) EGFR (test code = 11 mL/min/1.[place] [address]-9) NOT ACCURATE CREATININE CLEARANCE IN PREDICTING GLOMERULAR FILTRATION RATE . ESTIMATED GFR I S NOT APPLICABLE FOR DIALYSIS PATIEN BRANDI (test code = BRANDI) Child Attendant ID - BS Lab Interpretation Abnormal (test code = 48125-4) [facility] [id number] 16:18:22 Test Item Value Reference Range Interpretation Comments Protein, Total (test 7.0 See_Comment [Autom ated code = 2885-2) message] The system which generated this result transmit levi reference range : 6.0 - 8.3 gm/dL . The reference range was not u sed to interpret th is result as normal/abnormal . Albumin (test code = 2.7 g/dL 3.5-5.0 L 53071-9) Alkaline Phosphatase 99 U/L 40-150 (test code [...] Calcium (test code = 8.4 mg/dL 8.4-10.2 68407-5) AST (test code = 17 U/L 5-34 1920-8) ALT (test code = 10 U/L 6-55 174-6) EGFR (test code = 11 mL/min/1.[place] [address]-5) NOT ACCURATE CREATININE CLEARANCE IN PREDICTING GLOMERULAR FILTRATION RATE . ESTIMATED GFR I S NOT APPLICABLE FOR DIALYSIS PATIEN TS. BRANDI (test code = BRANDI) Child Attendant ID - BS Lab Interpretation Abnormal (test code = 65149-0) [facility] [id number] 16:18:22 Test Item Value Reference Range Interpretation Comments Protein, Total (test 7.0 See_Comment [Autom ated code = 2885-2) message] The system which generated this result transmit levi reference range : 6.0 - 8.3 gm/dL . The reference range was not u sed to interpret th is result as normal/abnormal . Albumin (test code = 2.7 g/dL 3.5-5.0 L 44507-0) Alkaline Phosphatase 99 U/L 40-150 (test code [...] Calcium (test code = 8.4 mg/dL 8.4-10.2 44073-0) AST (test code = 17 U/L -34 0-8) ALT (test code = 10 U/L 6-55 2-6) EGFR (test code = 11 mL/min/1.[place] [address]-6) NOT ACCURATE CREATININE CLEARANCE IN PREDICTING GLOMERULAR FILTRATION RATE . ESTIMATED GFR I S NOT APPLICABLE FOR DIALYSIS PATIEN TS. BRANDI (test code = BRANDI) Child Attendant ID - BS Lab Interpretation Abnormal (test code = 89048-4) [facility] [id number] 16:18:22 Test Item Value Reference Range Interpretation Comments Protein, Total (test 7.0 See_Comment [Autom ated code = 2885-2) message] The system which generated this result transmit levi reference range : 6.0 - 8.3 gm/dL . The reference range was not u sed to interpret th is result as normal/abnormal . Albumin (test code = 2.7 g/dL 3.5-5.0 L 32665-5) Alkaline Phosphatase 99 U/L 40-150 (test code [...] Calcium (test code = 8.4 mg/dL 8.4-10.2 84706-1) AST (test code = 17 U/L 1919-8) ALT (test code = 10 U/L 1742-6) EGFR (test code = 11 mL/min/1.[place] [address]-3) NOT ACCURATE CREATININE CLEARANCE IN PREDICTING GLOMERULAR FILTRATION RATE . ESTIMATED GFR I S NOT APPLICABLE FOR DIALYSIS PATIEN TSEsvin BRANDI (test code = BRANDI) Child Attendant ID - BS Lab Interpretation Abnormal (test code = 75739-1) [facility] [id number] 16:18:22 Test Item Value Reference Range Interpretation Comments Protein, Total (test 7.0 See_Comment [Autom ated code = 2885-2) message] The system which generated this result transmit levi reference range : 6.0 - 8.3 gm/dL . The reference range was not u sed to interpret th is result as normal/abnormal . Albumin (test code = 2.7 g/dL 3.5-5.0 L 61633-2) Alkaline Phosphatase 99 U/L 40-150 (test code [...] Calcium (test code = 8.4 mg/dL 8.4-10.2 83875-8) AST (test code = 17 U/L 1919-8) ALT (test code = 10 U/L 2-6) EGFR (test code = 11 mL/min/1.[place] [address]-3) NOT ACCURATE CREATININE CLEARANCE IN PREDICTING GLOMERULAR FILTRATION RATE . ESTIMATED GFR I S NOT APPLICABLE FOR DIALYSIS PATIEN TS. BRANDI (test code = BRANDI) Child Attendant ID - BS Lab Interpretation Abnormal (test code = 03173-5) [facility] [id number] 16:18:22 Test Item Value Reference Range Interpretation Comments Protein, Total (test 7.0 See_Comment [Autom ated code = 2885-2) message] The system which generated this result transmit levi reference range : 6.0 - 8.3 gm/dL . The reference range was not u sed to interpret th is result as normal/abnormal . Albumin (test code = 2.7 g/dL 3.5-5.0 L 09565-6) Alkaline Phosphatase 99 U/L 40-150 (test code [...] Calcium (test code = 8.4 mg/dL 8.4-10.2 60735-9) AST (test code = 17 U/L 5-34 1920-8) ALT (test code = 10 U/L 6-55 1742-6) EGFR (test code = 11 mL/min/1.[place] [address]-4) NOT ACCURATE CREATININE CLEARANCE IN PREDICTING GLOMERULAR FILTRATION RATE . ESTIMATED GFR I S NOT APPLICABLE FOR DIALYSIS PATIEN TS. BRANDI (test code = BRANDI) Child Attendant ID - BS Lab Interpretation Abnormal (test code = 40046-9) [facility] [id number] 16:18:22 Test Item Value Reference Range Interpretation Comments Protein, Total (test 7.0 See_Comment [Autom ated code = 2885-2) message] The system which generated this result transmit levi reference range : 6.0 - 8.3 gm/dL . The reference range was not u sed to interpret th is result as normal/abnormal . Albumin (test code = 2.7 g/dL 3.5-5.0 L 09273-1) Alkaline Phosphatase 99 U/L 40-150 (test code [...] Calcium (test code = 8.4 mg/dL 8.4-10.2 07143-0) AST (test code = 17 U/L 5-34 1920-8) ALT (test code = 10 U/L 6-55 1742-6) EGFR (test code = 11 mL/min/1.73 sq [place] [address]-9) NOT ACCURATE CREATININE CLEARANCE IN PREDICTING GLOMERULAR FILTRATION RATE . ESTIMATED GFR I S NOT APPLICABLE FOR DIALYSIS PATIEN TS. BRANDI (test code = BRANDI) Child Attendant ID - BS Lab Interpretation Abnormal (test code = 84545-7) [facility] [id number] 16:18:22 Test Item Value Reference Range Interpretation Comments Protein, Total (test 7.0 See_Comment [Autom ated code = 2885-2) message] The system which generated this result transmit levi reference range : 6.0 - 8.3 gm/dL . The reference range was not u sed to interpret th is result as normal/abnormal . Albumin (test code = 2.7 g/dL 3.5-5.0 L 17744-3) Alkaline Phosphatase 99 U/L 40-150 (test code [...] Calcium (test code = 8.4 mg/dL 8.4-10.2 80816-7) AST (test code = 17 U/L 5-34 1920-8) ALT (test code = 10 U/L 6-55 1742-6) EGFR (test code = 11 mL/min/1.73 sq [place] [address]-7) NOT ACCURATE CREATININE CLEARANCE IN PREDICTING GLOMERULAR FILTRATION RATE . ESTIMATED GFR I S NOT APPLICABLE FOR DIALYSIS PATIEN TS. BRANDI (test code = BRANDI) Child Attendant ID - BS Lab Interpretation Abnormal (test code = 52055-9) [facility] [id number] 16:18:22 Test Item Value Reference Range Interpretation Comments Protein, Total (test 7.0 See_Comment [Autom ated code = 6585-2) message] The system which generated this result transmit levi reference range : 6.0 - 8.3 gm/dL . The reference range was not u sed to interpret th is result as normal/abnormal . Albumin (test code = 2.7 g/dL 3.5-5.0 L 14271-2) Alkaline Phosphatase 99 U/L 40-150 (test code = 6768-6) Total Bilirubin (test 0.4 mg/dL 0.2-1.2 code = 1974-) Sodium (test code = 135 meq/L 136-145 L 2951-2) Potassium (test code 3.7 meq/L 3.5-5.1 = 2823-3) Chloride (test code = 100 meq/L 98-107 2075-0) CO2 (test code = 29 meq/L 2027-12) BUN (test code = 17 mg/dL 10-22-0) Creatinine (test code 4.22 mg/dL 0.57-1.25 H = 2160-0) Glucose (test code = 109 mg/dL 70-105 H 234-7) Calcium (test code = 8.4 mg/dL 8.4-10.2 22564-2) AST (test code = 17 U/L -34 1919-8) ALT (test code = 10 U/L 55 2-6) EGFR (test code = 11 mL/min/1.[place] [address]-4) NOT ACCURATE CREATININE CLEARANCE IN PREDICTING GLOMERULAR FILTRATION RATE . ESTIMATED GFR I S NOT APPLICABLE FOR DIALYSIS PATIEN BRANDI (test code = BRANDI) Child Attendant ID - BS Lab Interpretation Abnormal (test code = 25203-5) [facility] [id number] 16:18:22 Test Item Value Reference Range Interpretation Comments Protein, Total (test 7.0 See_Comment [Autom ated code = 2885-2) message] The system which generated this result transmit levi reference range : 6.0 - 8.3 gm/dL . The reference range was not u sed to interpret th is result as normal/abnormal . Albumin (test code = 2.7 g/dL 3.5-5.0 L 82674-2) Alkaline Phosphatase 99 U/L 40-150 (test code = 6768-6) Total Bilirubin (test 0.4 mg/dL 0.2-1.2 code = 1974-2) Sodium (test code = 135 meq/L 136-145 L 2951-2) Potassium (test code 3.7 meq/L 3.5-5.1 = 2823-3) Chloride (test code = 100 meq/L 98-107 2074-) CO2 (test code = 29 meq/L 2027-12) BUN (test code = 17 mg/dL 10-22-0) Creatinine (test code 4.22 mg/dL 0.57-1.25 H = 2159-0) Glucose (test code = 109 mg/dL 70-105 H 234-7) Calcium (test code = 8.4 mg/dL 8.4-10.2 73039-1) AST (test code = 17 U/L 5-34 1920-8) ALT (test code = 10 U/L 6-55 1742-6) EGFR (test code = 11 mL/min/1.[place] [address]-4) NOT ACCURATE CREATININE CLEARANCE IN PREDICTING GLOMERULAR FILTRATION RATE . ESTIMATED GFR I S NOT APPLICABLE FOR DIALYSIS PATIEN TSEsvin BRANDI (test code = BRANDI) Child Attendant ID - BS Lab Interpretation Abnormal (test code = 30298-3) [facility] [id number] 16:18:22 Test Item Value Reference Range Interpretation [...] S NOT APPLICABLE FOR DIALYSIS PATIEN TS. Child Attendant ID - [id number] 16:17:20 Test Item Value Reference Range Interpretation Comments MAGNESIUM (BEAKER) (test code = 1.8 mg/dL 1.6-2.6 627) Child Attendant ID - [id number] 16:10:37 Test Item Value Reference Range Interpretation Comments PARTIAL THROMBOPLASTIN TIME 34.5 seconds 22.5-36.0 (BEAKER) (test code = 760) PROTHROMBIN TIME/[id number] 16:10:03 Test Item Value Reference Range Interpretation Comments PROTIME (BEAKER) 17.2 seconds 11.9-14.2 H (test code = 759) INR (BEAKER) (test 1.43 See_Comment [Automat ed message] code = 370) The system bettermarks generated this result transmitted ref erence range: <=5.90. The reference range was not used to int erpret this result as normal/abnormal . RECOMMENDED COUMADIN/WARFARIN INR THERAPY RANGESSTANDARD DOSE: 2.0 - 3.0 Includes: PROPHYLAXIS for venous thrombosis, systemic embolization; TREATMENT for venous thrombosis and/or pulmonary embolus.HIGH RISK: Target INR is 2.5-3.5 for patients with mechanical heart valves.CBC W/PLT COUNT & AUTO [id number] 16:01:31 Test Item Value Reference Range Interpretation [...] (BEAKER) (test code = 2801) NV, ANGIOGRAM, [id number] 09:13:00Reason for exam:->mycotic aneurysm rule out[facility] MON[facility]YA : 1955 Sex: FFINAL REPORT DATE OF PROCEDURE: 06/16/2021 SURGEON: Mili Kent MD VAT HOUSE LABORER: Eloy Portillo MD; Alisa Monae MD PREOPERATIVE DIAGNOSIS: Subarachnoid hemorrhage POST OPERATIVE DIAGNOSIS: Nonaneurysmal subarachnoid hemorrhage PROCEDURE: Diagnostic cerebral injury ANESTHESIA: Monitored anesthesia ESTIMATED BLOOD LOSS: Minimal COMPLICATIONS: None Vessels catheterized:Right common femoral arteryRight common carotid artery, cervicalRight common carotid, cerebralLeft common carotid artery, cervicalLeft common carotid, cerebralLeft vertebral artery *FEMORAL*5F sheathBentson WireVertebral CatheterTerumo [place] wireMynx Closure Device INDICATIONS: The patient is [...] arteries are patent. There is a right SCREEN MAKER variant anatomy. No evidence of aneurysm, vascular [...] cerebral artery is diminutive in size given SCREEN MAKER anatomy and the the left SCREEN MAKER is normal in caliber and contour. No [...] MDReport Verified Date/Time: 06/17/2021 09:13:43 Reading Location: [facility] Y026 Neuro Angio Reading Room BASIC METABOLIC [id number] 05:09:41 Test Item Value Reference Range Interpretation [...] S NOT APPLICABLE FOR DIALYSIS PATIEN TS. Child Attendant ID - HIEN [id number] 05:07:06 Test Item Value Reference Range Interpretation Comments MAGNESIUM (BEAKER) (test code = 2.1 mg/dL 1.6-2.6 627) Child Attendant ID - HIEN [id number] 05:07:06 Test Item Value Reference Range Interpretation Comments PHOSPHORUS (BEAKER) (test code = 5.7 mg/dL 2.3-4.7 H 604) Child Attendant ID - HIEN [facility] W/PLT COUNT & AUTO [id number] 04:38:56 Test Item Value Reference Range Interpretation [...] PERCENT (BEAKER) (test code = 2801) POCT-GLUCOSE [id number] 00:10:32 Test Item Value Reference Range Interpretation Comments POC-GLUCOSE METER 221 mg/dL 70-110 H : TESTED A T [facility] 6720 (BEAKER) (test code = YDUY LLOYD, 1538) [address]: Child Attendant/Techni kelle ID = [id number] for SHAHLA BARRY POCT-GLUCOSE [id number] 18:11:32 Test Item Value Reference Range Interpretation Comments POC-GLUCOSE METER 170 mg/dL 70-110 H : TESTED A T [facility] 6720 ([place]) (test code = YUDY [place], 1538) [address]: Child Attendant/Techni kelle ID = [id number] for An Onelia ramirez Blood [id number] 14:00:39 Test Item Value Reference Range Interpretation Comments Result (test code = No growth in 5 days 6463-4) [facility] [id number] 14:00:39 Test Item Value Reference Range Interpretation Comments Result (test code = No growth in 5 days 6463-4) [facility] [id number] 14:00:39 Test Item Value Reference Range Interpretation Comments Result (test code = No growth in 5 days 6463-4) [facility] [id number] 14:00:39 Test Item Value Reference Range Interpretation Comments Result (test code = No growth in 5 days 6463-4) [facility] [id number] 14:00:39 Test Item Value Reference Range Interpretation Comments Result (test code = No growth in 5 days 6463-4) [facility] [id number] 14:00:39 Test Item Value Reference Range Interpretation Comments Result (test code = No growth in 5 days 6463-4) [facility] [id number] 14:00:39 Test Item Value Reference Range Interpretation Comments Result (test code = No growth in 5 days 6463-4) [facility] [id number] 14:00:39 Test Item Value Reference Range Interpretation Comments Result (test code = No growth in 5 days 6463-4) [facility] [id number] 14:00:39 Test Item Value Reference Range Interpretation Comments Result (test code = No growth in 5 days 6463-4) [facility]2022-03-15 14:00:39 Test Item Value Reference Range Interpretation Comments Result (test code = No growth in 5 days 6463-4) [facility]2022-03-15 14:00:39 Test Item Value Reference Range Interpretation Comments Result (test code = No growth in 5 days 6463-4) [facility]2022-03-15 14:00:39 Test Item Value Reference Range Interpretation Comments Result (test code = No growth in 5 days 6463-4) [facility]2022-03-15 14:00:39 Test Item Value Reference Range Interpretation Comments Result (test code = No growth in 5 days 6463-4) [facility] [id number] 14:00:39 Test Item Value Reference Range Interpretation Comments Result (test code = No growth in 5 days 6463-4) [facility] [id number] 14:00:39 Test Item Value Reference Range Interpretation Comments Result (test code = No growth in 5 days 6463-4) [facility]2022-03-15 14:00:39 Test Item Value Reference Range Interpretation Comments Result (test code = No growth in 5 days 6463-4) [facility]2022-03-15 14:00:39 Test Item Value Reference Range Interpretation Comments Result (test code = No growth in 5 days 6463-4) [facility]2022-03-15 14:00:39 Test Item Value Reference Range Interpretation Comments CULTURE (BEAKER) (test No growth in 5 days code = 1095) MR, BRAIN, WITHOUT [id number] 13:02:00Pt has [employer] [facility]SS[facility]IO MRI L111/ [id number] Unlisted Reason for Exam - Click Yes and Enter Reason Below- >No Deos the patient have an implanted electronic device?->Yes [employer] [facility] MRI L111/ [id number] [facility] : 1955 Sex: [...] [place] Verified Date/Time: 06/16/2021 13:02:07 Reading Location: [address] Neuro Reading Room D [id number] 08:00:27 Test Item Value Reference Range Interpretation Comments CULTURE (BEAKER) (test No growth in 5 days code = 1095) POCT-GLUCOSE [id number] 07:30:10 Test Item Value Reference Range Interpretation Comments POC-GLUCOSE METER 159 mg/dL 70-110 H : TESTED A T [facility] 6720 (BEAKER) (test code = YUDY [place], 1538) [address]: Child Attendant/Techni kelle ID = [id number] for Onelia Lorenz BASIC METABOLIC [id number] 05:42:18 Test Item Value Reference Range Interpretation [...] S NOT APPLICABLE FOR DIALYSIS PATIEN TS. Child Attendant ID - RAKAN [id number] 05:35:31 Test Item Value Reference Range Interpretation Comments MAGNESIUM (BEAKER) (test code = 2.1 mg/dL 1.6-2.6 627) Child Attendant ID - RAKAN [id number] 05:35:31 Test Item Value Reference Range Interpretation Comments PHOSPHORUS (BEAKER) (test code = 4.5 mg/dL 2.3-4.7 604) Child Attendant ID - RAKAN [facility] W/PLT COUNT & AUTO [id number] 04:43:33 Test Item Value Reference Range Interpretation [...] PERCENT (BEAKER) (test code = 2801) BLOOD [id number] 00:00:28 Test Item Value Reference Range Interpretation Comments CULTURE (BEAKER) (test No growth in 5 days code = 1095) The specimen volume collected for this blood culture was below the optimum (10 mL per bottle or 20 mL total). Use of lower volumes may adversely affect recovery and/or detection times of some organisms.POCT-GLUCOSE [id number] 21:39:58 Test Item Value Reference Range Interpretation Comments POC-GLUCOSE METER 173 mg/dL 70-110 H : Notified RN/MD: (AKASH) (test code = TESTED AT [facility] 6723 6680) [facility], [address]: Child Attendant/Techni kelle ID = [id number] for DE NNIS, EMANUEL Hepatic function [id number] 15:52:11 Test Item Value Reference Range Interpretation Comments Protein, Total (test 6.8 See_Comment [Autom ated code = 2885-2) message] The system which generated this result transmit levi reference range : 6.0 - 8.3 gm/dL . The reference range was not u sed to interpret th is result as normal/abnormal . Albumin (test code = 2.6 g/dL 3.5-5.0 L 96356-1) Total Bilirubin (test 0.3 mg/dL 0.2-1.2 code = 1974-) Bilirubin, Direct 0.2 mg/dL 0.1-0.5 (test code = 1967-) Alkaline Phosphatase 90 U/L 40-150 (test code = 6768-6) AST (test code = 17 U/L 1920-8) ALT (test code = 11 U/L 1742-6) BRANDI (test code = BRANDI) Child Attendant ID - PIAYA L Lab Interpretation Abnormal (test code = 90067-7) [facility] [id number] 15:52:11 Test Item Value Reference Range Interpretation Comments Protein, Total (test 6.8 See_Comment [Autom ated code = 2885-2) message] The system which generated this result transmit levi reference range : 6.0 - 8.3 gm/dL . The reference range was not u sed to interpret th is result as normal/abnormal . Albumin (test code = 2.6 g/dL 3.5-5.0 L 57398-9) Total Bilirubin (test 0.3 mg/dL 0.2-1.2 code = 1974-05) Bilirubin, Direct 0.2 mg/dL 0.1-0.5 (test code = 1967-10) Alkaline Phosphatase 90 U/L 40-150 (test code = 6768-6) AST (test code = 17 U/L 34 1920-8) ALT (test code = 11 U/L 1742-6) BRANDI (test code = BRANDI) Child Attendant ID - PIAYA L Lab Interpretation Abnormal (test code = 09577-9) [facility] [id number] 15:52:11 Test Item Value Reference Range Interpretation Comments Protein, Total (test 6.8 See_Comment [Autom ated code = 2885-2) message] The system which generated this result transmit levi reference range : 6.0 - 8.3 gm/dL . The reference range was not u sed to interpret th is result as normal/abnormal . Albumin (test code = 2.6 g/dL 3.5-5.0 L 05577-0) Total Bilirubin (test 0.3 mg/dL 0.2-1.2 code = 1974-05) Bilirubin, Direct 0.2 mg/dL 0.1-0.5 (test code = 1967-10) Alkaline Phosphatase 90 U/L 40-150 (test code = 6768-6) AST (test code = 17 U/L 34 1920-8) ALT (test code = 11 U/L 1742-6) BRANDI (test code = BRANDI) Child Attendant ID - PIAYA L Lab Interpretation Abnormal (test code = 73036-0) [facility] [id number] 15:52:11 Test Item Value Reference Range Interpretation Comments Protein, Total (test 6.8 See_Comment [Autom ated code = 2885-2) message] The system which generated this result transmit levi reference range : 6.0 - 8.3 gm/dL . The reference range was not u sed to interpret th is result as normal/abnormal . Albumin (test code = 2.6 g/dL 3.5-5.0 L 27938-7) Total Bilirubin (test 0.3 mg/dL 0.2-1.2 code = 1974-05) Bilirubin, Direct 0.2 mg/dL 0.1-0.5 (test code = 1967-10) Alkaline Phosphatase 90 U/L 40-150 (test code = 6768-6) AST (test code = 17 U/L 34 1920-8) ALT (test code = 11 U/L 1742-6) BRANDI (test code = BRANDI) Child Attendant ID - PIAYA L Lab Interpretation Abnormal (test code = 66218-9) [facility] [id number] 15:52:11 Test Item Value Reference Range Interpretation Comments Protein, Total (test 6.8 See_Comment [Autom ated code = 2885-2) message] The system which generated this result transmit levi reference range : 6.0 - 8.3 gm/dL . The reference range was not u sed to interpret th is result as normal/abnormal . Albumin (test code = 2.6 g/dL 3.5-5.0 L 41897-3) Total Bilirubin (test 0.3 mg/dL 0.2-1.2 code = 1974-05) Bilirubin, Direct 0.2 mg/dL 0.1-0.5 (test code = 1967-10) Alkaline Phosphatase 90 U/L 40-150 (test code = 6768-6) AST (test code = 17 U/L 34 1919-8) ALT (test code = 11 U/L 1742-6) BRANDI (test code = BRANDI) Child Attendant ID - PIAYA L Lab Interpretation Abnormal (test code = 10961-8) [facility] [id number] 15:52:11 Test Item Value Reference Range Interpretation Comments Protein, Total (test 6.8 See_Comment [Autom ated code = 2885-2) message] The system which generated this result transmit levi reference range : 6.0 - 8.3 gm/dL . The reference range was not u sed to interpret th is result as normal/abnormal . Albumin (test code = 2.6 g/dL 3.5-5.0 L 58267-8) Total Bilirubin (test 0.3 mg/dL 0.2-1.2 code = 1974-05) Bilirubin, Direct 0.2 mg/dL 0.1-0.5 (test code = 1967-10) Alkaline Phosphatase 90 U/L 40-150 (test code = 6768-6) AST (test code = 17 U/L 8) ALT (test code = 11 U/L 1742-6) BRANDI (test code = BRANDI) Child Attendant ID - PIAYA L Lab Interpretation Abnormal (test code = 99992-8) [facility] [id number] 15:52:11 Test Item Value Reference Range Interpretation Comments Protein, Total (test 6.8 See_Comment [Autom ated code = 2885-2) message] The system which generated this result transmit levi reference range : 6.0 - 8.3 gm/dL . The reference range was not u sed to interpret th is result as normal/abnormal . Albumin (test code = 2.6 g/dL 3.5-5.0 L 89023-9) Total Bilirubin (test 0.3 mg/dL 0.2-1.2 code = 1974-05) Bilirubin, Direct 0.2 mg/dL 0.1-0.5 (test code = 1967-) Alkaline Phosphatase 90 U/L 40-150 (test code = 6768-6) AST (test code = 17 U/L 192-8) ALT (test code = 11 U/L 1742-6) BRANDI (test code = BRANDI) Child Attendant ID - PIAYA L Lab Interpretation Abnormal (test code = 00110-4) [facility] [id number] 15:52:11 Test Item Value Reference Range Interpretation Comments Protein, Total (test 6.8 See_Comment [Autom ated code = 2885-2) message] The system which generated this result transmit levi reference range : 6.0 - 8.3 gm/dL . The reference range was not u sed to interpret th is result as normal/abnormal . Albumin (test code = 2.6 g/dL 3.5-5.0 L 57338-5) Total Bilirubin (test 0.3 mg/dL 0.2-1.2 code = 1974-05) Bilirubin, Direct 0.2 mg/dL 0.1-0.5 (test code = 1967-10) Alkaline Phosphatase 90 U/L 40-150 (test code = 6768-6) AST (test code = 17 U/L 1919-8) ALT (test code = 11 U/L 1742-6) BRANDI (test code = BRANDI) Child Attendant ID - PIAYA L Lab Interpretation Abnormal (test code = 11762-6) [facility] [id number] 15:52:11 Test Item Value Reference Range Interpretation Comments Protein, Total (test 6.8 See_Comment [Autom ated code = 2885-2) message] The system which generated this result transmit levi reference range : 6.0 - 8.3 gm/dL . The reference range was not u sed to interpret th is result as normal/abnormal . Albumin (test code = 2.6 g/dL 3.5-5.0 L 76285-4) Total Bilirubin (test 0.3 mg/dL 0.2-1.2 code = 1974-) Bilirubin, Direct 0.2 mg/dL 0.1-0.5 (test code = 1967-) Alkaline Phosphatase 90 U/L 40-150 (test code = 6768-6) AST (test code = 17 U/L 5-34 1920-8) ALT (test code = 11 U/L 6-55 1742-6) BRANDI (test code = BRANDI) Child Attendant ID - LIANA L Lab Interpretation Abnormal (test code = 03396-4) [facility] [id number] 15:52:11 Test Item Value Reference Range Interpretation Comments Protein, Total (test 6.8 See_Comment [Autom ated code = 2885-2) message] The system which generated this result transmit levi reference range : 6.0 - 8.3 gm/dL . The reference range was not u sed to interpret th is result as normal/abnormal . Albumin (test code = 2.6 g/dL 3.5-5.0 L 14284-6) Total Bilirubin (test 0.3 mg/dL 0.2-1.2 code = 1974-) Bilirubin, Direct 0.2 mg/dL 0.1-0.5 (test code = 1967-) Alkaline Phosphatase 90 U/L 40-150 (test code = 6768-6) AST (test code = 17 U/L -34 1920-8) ALT (test code = 11 U/L 655 1742-6) BRANDI (test code = BRANDI) Child Attendant ID - LIANA L Lab Interpretation Abnormal (test code = 00762-6) [facility] [id number] 15:52:11 Test Item Value Reference Range Interpretation Comments Protein, Total (test 6.8 See_Comment [Autom ated code = 2885-2) message] The system which generated this result transmit levi reference range : 6.0 - 8.3 gm/dL . The reference range was not u sed to interpret th is result as normal/abnormal . Albumin (test code = 2.6 g/dL 3.5-5.0 L 65280-8) Total Bilirubin (test 0.3 mg/dL 0.2-1.2 code = 1974-) Bilirubin, Direct 0.2 mg/dL 0.1-0.5 (test code = 1967-) Alkaline Phosphatase 90 U/L 40-150 (test code = 6768-6) AST (test code = 17 U/L 5-34 1920-8) ALT (test code = 11 U/L 655 1742-6) BRANDI (test code = BRANDI) Child Attendant ID - PIAYA L Lab Interpretation Abnormal (test code = 17491-8) [facility] [id number] 15:52:11 Test Item Value Reference Range Interpretation Comments Protein, Total (test 6.8 See_Comment [Autom ated code = 2885-2) message] The system which generated this result transmit levi reference range : 6.0 - 8.3 gm/dL . The reference range was not u sed to interpret th is result as normal/abnormal . Albumin (test code = 2.6 g/dL 3.5-5.0 L 29327-2) Total Bilirubin (test 0.3 mg/dL 0.2-1.2 code = 1974-) Bilirubin, Direct 0.2 mg/dL 0.1-0.5 (test code = 1967-) Alkaline Phosphatase 90 U/L 40-150 (test code = 6768-6) AST (test code = 17 U/L 1919-8) ALT (test code = 11 U/L 1742-6) BRANDI (test code = BRANDI) Child Attendant ID - PIAYA L Lab Interpretation Abnormal (test code = 48716-5) [facility] [id number] 15:52:11 Test Item Value Reference Range Interpretation Comments Protein, Total (test 6.8 See_Comment [Autom ated code = 2885-2) message] The system which generated this result transmit levi reference range : 6.0 - 8.3 gm/dL . The reference range was not u sed to interpret th is result as normal/abnormal . Albumin (test code = 2.6 g/dL 3.5-5.0 L 39752-7) Total Bilirubin (test 0.3 mg/dL 0.2-1.2 code = 1974-) Bilirubin, Direct 0.2 mg/dL 0.1-0.5 (test code = 1967-) Alkaline Phosphatase 90 U/L 40-150 (test code = 6768-6) AST (test code = 17 U/L 534 1920-8) ALT (test code = 11 U/L 655 1742-6) BRANDI (test code = BRANDI) Child Attendant ID - PIAYAD L Lab Interpretation Abnormal (test code = 90148-5) [facility] [id number] 15:52:11 Test Item Value Reference Range Interpretation Comments Protein, Total (test 6.8 See_Comment [Autom ated code = 2885-2) message] The system which generated this result transmit levi reference range : 6.0 - 8.3 gm/dL . The reference range was not u sed to interpret th is result as normal/abnormal . Albumin (test code = 2.6 g/dL 3.5-5.0 L 79398-9) Total Bilirubin (test 0.3 mg/dL 0.2-1.2 code = 1974-) Bilirubin, Direct 0.2 mg/dL 0.1-0.5 (test code = 1967-) Alkaline Phosphatase 90 U/L 40-150 (test code = 6768-6) AST (test code = 17 U/L 5-34 1920-8) ALT (test code = 11 U/L 6- 1742-6) BRANDI (test code = BRANDI) Child Attendant ID - LAINA L Lab Interpretation Abnormal (test code = 36060-5) [facility] [id number] 15:52:11 Test Item Value Reference Range Interpretation Comments Protein, Total (test 6.8 See_Comment [Autom ated code = 2885-2) message] The system which generated this result transmit levi reference range : 6.0 - 8.3 gm/dL . The reference range was not u sed to interpret th is result as normal/abnormal . Albumin (test code = 2.6 g/dL 3.5-5.0 L 15176-9) Total Bilirubin (test 0.3 mg/dL 0.2-1.2 code = 1974-) Bilirubin, Direct 0.2 mg/dL 0.1-0.5 (test code = 1967-) Alkaline Phosphatase 90 U/L 40-150 (test code = 6768-6) AST (test code = 17 U/L 5-34 1920-8) ALT (test code = 11 U/L 6-55 1742-6) BRANDI (test code = BRANDI) Child Attendant ID - PIAYA L Lab Interpretation Abnormal (test code = 13313-9) [facility] [id number] 15:52:11 Test Item Value Reference Range Interpretation Comments Protein, Total (test 6.8 See_Comment [Autom ated code = 2885-2) message] The system which generated this result transmit levi reference range : 6.0 - 8.3 gm/dL . The reference range was not u sed to interpret th is result as normal/abnormal . Albumin (test code = 2.6 g/dL 3.5-5.0 L 70913-9) Total Bilirubin (test 0.3 mg/dL 0.2-1.2 code = 1974-) Bilirubin, Direct 0.2 mg/dL 0.1-0.5 (test code = 1967-) Alkaline Phosphatase 90 U/L 40-150 (test code = 6768-6) AST (test code = 17 U/L 1919-8) ALT (test code = 11 U/L 1742-6) BRANDI (test code = BRANDI) Child Attendant ID - PIAYA L Lab Interpretation Abnormal (test code = 77242-1) [facility] [id number] 15:52:11 Test Item Value Reference Range Interpretation Comments Protein, Total (test 6.8 See_Comment [Autom ated code = 2885-2) message] The system which generated this result transmit levi reference range : 6.0 - 8.3 gm/dL . The reference range was not u sed to interpret th is result as normal/abnormal . Albumin (test code = 2.6 g/dL 3.5-5.0 L 53744-3) Total Bilirubin (test 0.3 mg/dL 0.2-1.2 code = 1974-) Bilirubin, Direct 0.2 mg/dL 0.1-0.5 (test code = 1967-) Alkaline Phosphatase 90 U/L 40-150 (test code = 6768-6) AST (test code = 17 U/L 192-8) ALT (test code = 11 U/L 6- 1742-6) BRANDI (test code = BRANDI) Child Attendant ID - PIAYA L Lab Interpretation Abnormal (test code = 60220-9) [facility] [id number] 15:52:11 Test Item Value Reference Range Interpretation [...] (test code = 11 U/L 6-55 347) Child Attendant ID - LIANA LHeparin [id number] 12:21:31 Test Item Value Reference Range Interpretation Comments Heparin Ab (test code Negative Negative = 3267-2) Heparin Antibody 0.247 <0.400 Optical Density (test code = 2659) 4T Total Score (test 4 code = 2661) BRANDI (test code = BRANDI) Probability of HIT based on scoring system: 6-8 = High probability; 4-5 = intermediate probability; 0-3 = low probability [facility] [id number] 12:21:31 Test Item Value Reference Range Interpretation Comments Heparin Ab (test code Negative Negative = 3267-2) Heparin Antibody 0.247 <0.400 Optical Density (test code = 2659) 4T Total Score (test 4 code = 2661) BRANDI (test code = BRANDI) Probability of HIT based on scoring system: 6-8 = High probability; 4-5 = intermediate probability; 0-3 = low probability [facility] [id number] 12:21:31 Test Item Value Reference Range Interpretation Comments Heparin Ab (test code Negative Negative = 3267-2) Heparin Antibody 0.247 <0.400 Optical Density (test code = 2659) 4T Total Score (test 4 code = 2661) BRANDI (test code = BRANDI) Probability of HIT based on scoring system: 6-8 = High probability; 4-5 = intermediate probability; 0-3 = low probability [facility] [id number] 12:21:31 Test Item Value Reference Range Interpretation Comments Heparin Ab (test code Negative Negative = 3267-2) Heparin Antibody 0.247 <0.400 Optical Density (test code = 2659) 4T Total Score (test 4 code = 2661) BRANDI (test code = BRANDI) Probability of HIT based on scoring system: 6-8 = High probability; 4-5 = intermediate probability; 0-3 = low probability [facility] [id number] 12:21:31 Test Item Value Reference Range Interpretation Comments Heparin Ab (test code Negative Negative = 3267-2) Heparin Antibody 0.247 <0.400 Optical Density (test code = 2659) 4T Total Score (test 4 code = 2661) BRANDI (test code = BRANDI) Probability of HIT based on scoring system: 6-8 = High probability; 4-5 = intermediate probability; 0-3 = low probability [facility] [id number] 12:21:31 Test Item Value Reference Range Interpretation Comments Heparin Ab (test code Negative Negative = 3267-2) Heparin Antibody 0.247 <0.400 Optical Density (test code = 2659) 4T Total Score (test 4 code = 2661) BRANDI (test code = BRANDI) Probability of HIT based on scoring system: 6-8 = High probability; 4-5 = intermediate probability; 0-3 = low probability [facility] [id number] 12:21:31 Test Item Value Reference Range Interpretation Comments Heparin Ab (test code Negative Negative = 3267-2) Heparin Antibody 0.247 <0.400 Optical Density (test code = 2659) 4T Total Score (test 4 code = 2661) BRANDI (test code = BRANDI) Probability of HIT based on scoring system: 6-8 = High probability; 4-5 = intermediate probability; 0-3 = low probability [facility] [id number] 12:21:31 Test Item Value Reference Range Interpretation Comments Heparin Ab (test code Negative Negative = 3267-2) Heparin Antibody 0.247 <0.400 Optical Density (test code = 2659) 4T Total Score (test 4 code = 2661) BRANDI (test code = BRANDI) Probability of HIT based on scoring system: 6-8 = High probability; 4-5 = intermediate probability; 0-3 = low probability [facility] [id number] 12:21:31 Test Item Value Reference Range Interpretation Comments Heparin Ab (test code Negative Negative = 3267-2) Heparin Antibody 0.247 <0.400 Optical Density (test code = 2659) 4T Total Score (test 4 code = 2661) BRANDI (test code = BRANDI) Probability of HIT based on scoring system: 6-8 = High probability; 4-5 = intermediate probability; 0-3 = low probability [facility] [id number] 12:21:31 Test Item Value Reference Range Interpretation Comments Heparin Ab (test code Negative Negative = 3267-2) Heparin Antibody 0.247 <0.400 Optical Density (test code = 2659) 4T Total Score (test 4 code = 2661) BRANDI (test code = BRANDI) Probability of HIT based on scoring system: 6-8 = High probability; 4-5 = intermediate probability; 0-3 = low probability [facility] [id number] 12:21:31 Test Item Value Reference Range Interpretation Comments Heparin Ab (test code Negative Negative = 3267-2) Heparin Antibody 0.247 <0.400 Optical Density (test code = 2659) 4T Total Score (test 4 code = 2661) BRANDI (test code = BRANDI) Probability of HIT based on scoring system: 6-8 = High probability; 4-5 = intermediate probability; 0-3 = low probability [facility] [id number] 12:21:31 Test Item Value Reference Range Interpretation Comments Heparin Ab (test code Negative Negative = 3267-2) Heparin Antibody 0.247 <0.400 Optical Density (test code = 2659) 4T Total Score (test 4 code = 2661) BRANDI (test code = BRANDI) Probability of HIT based on scoring system: 6-8 = High probability; 4-5 = intermediate probability; 0-3 = low probability [facility] [id number] 12:21:31 Test Item Value Reference Range Interpretation Comments Heparin Ab (test code Negative Negative = 3267-2) Heparin Antibody 0.247 <0.400 Optical Density (test code = 2659) 4T Total Score (test 4 code = 2661) BRANDI (test code = BRANDI) Probability of HIT based on scoring system: 6-8 = High probability; 4-5 = intermediate probability; 0-3 = low probability [facility] [id number] 12:21:31 Test Item Value Reference Range Interpretation Comments Heparin Ab (test code Negative Negative = 3267-2) Heparin Antibody 0.247 <0.400 Optical Density (test code = 2659) 4T Total Score (test 4 code = 2661) BRANDI (test code = BRANDI) Probability of HIT based on scoring system: 6-8 = High probability; 4-5 = intermediate probability; 0-3 = low probability [facility] [id number] 12:21:31 Test Item Value Reference Range Interpretation Comments Heparin Ab (test code Negative Negative = 3267-2) Heparin Antibody 0.247 <0.400 Optical Density (test code = 2659) 4T Total Score (test 4 code = 2661) BRANDI (test code = BRANDI) Probability of HIT based on scoring system: 6-8 = High probability; 4-5 = intermediate probability; 0-3 = low probability [facility] [id number] 12:21:31 Test Item Value Reference Range Interpretation Comments Heparin Ab (test code Negative Negative = 3267-2) Heparin Antibody 0.247 <0.400 Optical Density (test code = 2659) 4T Total Score (test 4 code = 2661) BRANDI (test code = BRANDI) Probability of HIT based on scoring system: 6-8 = High probability; 4-5 = intermediate probability; 0-3 = low probability [facility] [id number] 12:21:31 Test Item Value Reference Range Interpretation Comments Heparin Ab (test code Negative Negative = 3267-2) Heparin Antibody 0.247 <0.400 Optical Density (test code = 2659) 4T Total Score (test 4 code = 2661) BRANDI (test code = BRANDI) Probability of HIT based on scoring system: 6-8 = High probability; 4-5 = intermediate probability; 0-3 = low probability [facility] [id number] 12:21:31 Test Item Value Reference Range Interpretation Comments HEPARIN ANTIBODY (BEAKER) (test code Negative Negative = 646) HEPARIN ANTIBODY OD (BEAKER) (test 0.247 <0.400 code = 9729) 4T TOTAL SCORE (BEAKER) (test code = 4 1454) Probability of HIT based on scoring system: 6-8 = High probability; 4-5 = intermediate probability; 0-3 = [facility]07:00 Test Item Value Reference Range Interpretation Comments ABO Grouping (test code = 2588) O Rh Factor (test code = 2589) [facility]2022-03-14 08:07:00 Test Item Value Reference Range Interpretation Comments ABO Grouping (test code = 2588) O Rh Factor (test code = 2589) [facility]2022-03-14 08:07:00 Test Item Value Reference Range Interpretation Comments ABO Grouping (test code = 2588) O Rh Factor (test code = 2589) [facility]2022-03-14 08:07:00 Test Item Value Reference Range Interpretation Comments ABO Grouping (test code = 2588) O Rh Factor (test code = 2589) [facility]2022-03-14 08:07:00 Test Item Value Reference Range Interpretation Comments ABO Grouping (test code = 2588) O Rh Factor (test code = 2589) [facility]2022-03-14 08:07:00 Test Item Value Reference Range Interpretation Comments ABO Grouping (test code = 2588) O Rh Factor (test code = 2589) [facility]2022-03-14 08:07:00 Test Item Value Reference Range Interpretation Comments ABO Grouping (test code = 2588) O Rh Factor (test code = 2589) [facility]2022-03-14 08:07:00 Test Item Value Reference Range Interpretation Comments ABO Grouping (test code = 2588) O Rh Factor (test code = 2589) [facility]2022-03-14 08:07:00 Test Item Value Reference Range Interpretation Comments ABO Grouping (test code = 2588) O Rh Factor (test code = 2589) [facility]2022-03-14 08:07:00 Test Item Value Reference Range Interpretation Comments ABO Grouping (test code = 2588) O Rh Factor (test code = 2589) [facility], [id number] 08:07:00 Test Item Value Reference Range Interpretation Comments ABO Grouping (test code = 2588) O Rh Factor (test code = 2589) [facility], [id number] 08:07:00 Test Item Value Reference Range Interpretation Comments ABO Grouping (test code = 2588) O Rh Factor (test code = 2589) [facility], [id number] 08:07:00 Test Item Value Reference Range Interpretation Comments ABO Grouping (test code = 2588) O Rh Factor (test code = 2589) [facility], [id number] 08:07:00 Test Item Value Reference Range Interpretation Comments ABO Grouping (test code = 2588) O Rh Factor (test code = 2589) [facility], [id number] 08:07:00 Test Item Value Reference Range Interpretation Comments ABO Grouping (test code = 2588) O Rh Factor (test code = 2589) [facility], [id number] 08:07:00 Test Item Value Reference Range Interpretation Comments ABO Grouping (test code = 2588) O Rh Factor (test code = 2589) [facility], [id number] 08:07:00 Test Item Value Reference Range Interpretation Comments ABO Grouping (test code = 2588) O Rh Factor (test code = 2589) [facility] [id number] 05:19:52 Test Item Value Reference Range Interpretation [...] S NOT APPLICABLE FOR DIALYSIS PATIEN TS. Child Attendant ID - PIAYAD [id number] 05:09:04 Test Item Value Reference Range Interpretation Comments PHOSPHORUS (BEAKER) (test code = 4.1 mg/dL 2.3-4.7 604) Child Attendant ID - PIAYAD [id number] 05:09:03 Test Item Value Reference Range Interpretation Comments MAGNESIUM (BEAKER) (test code = 2.0 mg/dL 1.6-2.6 627) Child Attendant ID - LIANA LPT/lBIO0267-27-28 04:53:34 Test Item Value Reference Interpretation Comments Range Protime (test code = 13.7 See_Comment [Autom ated 7992-2) message] The system which generated this result transmitted reference range : 11.9 - 14.2 seconds. The reference range was not used to interpret this result as normal/abnormal . INR (test code = 1.07 See_Comment [Automated 1751-6) message] The system which generated this result transmitted reference range : <=5.90. The reference range was not used to interpret this result as normal/abnormal . PTT (test code = 32.5 See_Comment [Automated 83519-7) message] The system which generated this result [...] valves. Lab Interpretation Normal (test code = 84608-5) [facility]PT[facility][id number] 04:53:34 Test Item Value Reference Interpretation Comments [...] PTT (test code = 32.5 See_Comment [Automated 91387-1) message] The system which generated this result [...] valves. Lab Interpretation Normal (test code = 56048-7) [facility]PT/[id number] 04:53:34 Test Item Value Reference Interpretation Comments [...] PTT (test code = 32.5 See_Comment [Automated 55910-6) message] The system which generated this result [...] valves. Lab Interpretation Normal (test code = 28448-8) [facility]PT/[id number] 04:53:34 Test Item Value Reference Interpretation Comments [...] PTT (test code = 32.5 See_Comment [Automated 31799-6) message] The system which generated this result [...] valves. Lab Interpretation Normal (test code = 85330-5) [facility]PT/[id number] 04:53:34 Test Item Value Reference Interpretation Comments [...] PTT (test code = 32.5 See_Comment [Automated 49130-9) message] The system which generated this result [...] valves. Lab Interpretation Normal (test code = 80468-3) [facility]PT/[id number] 04:53:34 Test Item Value Reference Interpretation Comments [...] PTT (test code = 32.5 See_Comment [Automated 80812-9) message] The system which generated this result [...] valves. Lab Interpretation Normal (test code = 83615-6) [facility]PT/[id number] 04:53:34 Test Item Value Reference Interpretation Comments [...] PTT (test code = 32.5 See_Comment [Automated 79545-9) message] The system which generated this result [...] valves. Lab Interpretation Normal (test code = 72394-9) [facility]PT/wEUO3656-04-29 04:53:34 Test Item Value Reference Interpretation Comments [...] PTT (test code = 32.5 See_Comment [Automated 23927-7) message] The system which generated this result [...] valves. Lab Interpretation Normal (test code = 29246-5) [facility]PT/bTOV8252-36-88 04:53:34 Test Item Value Reference Interpretation Comments [...] PTT (test code = 32.5 See_Comment [Automated 96352-1) message] The system which generated this result [...] valves. Lab Interpretation Normal (test code = 02487-2) [facility]PT/[id number] 04:53:34 Test Item Value Reference Interpretation Comments Range Protime (test code = 13.7 See_Comment [Autom ated 5902-2) message] The system which generated this result transmitted reference range : 11.9 - 14.2 seconds. The reference range was not used to interpret this result as normal/abnormal . INR (test code = 1.07 See_Comment [Automated 3611-6) message] The system which generated this result transmitted reference range : <=5.90. The reference range was not used to interpret this result as normal/abnormal . PTT (test code = 32.5 See_Comment [Automated 84073-7) message] The system which generated this result [...] valves. Lab Interpretation Normal (test code = 47652-0) [facility]PT/kYBE4488-64-98 04:53:34 Test Item Value Reference Interpretation Comments [...] PTT (test code = 32.5 See_Comment [Automated 20328-2) message] The system which generated this result [...] valves. Lab Interpretation Normal (test code = 85692-9) [facility]PT/[id number] 04:53:34 Test Item Value Reference Interpretation Comments [...] PTT (test code = 32.5 See_Comment [Automated 71578-2) message] The system which generated this result [...] valves. Lab Interpretation Normal (test code = 47574-2) [facility]PT/mPXJ7279-62-79 04:53:34 Test Item Value Reference Interpretation Comments [...] PTT (test code = 32.5 See_Comment [Automated 19761-8) message] The system which generated this result [...] valves. Lab Interpretation Normal (test code = 37286-3) [facility]PT/zFJT6433-52-23 04:53:34 Test Item Value Reference Interpretation Comments [...] PTT (test code = 32.5 See_Comment [Automated 24071-8) message] The system which generated this result [...] valves. Lab Interpretation Normal (test code = 84380-8) [facility]PT/rIDG7745-08-14 04:53:34 Test Item Value Reference Interpretation Comments Range Protime (test code = 13.7 See_Comment [Autom ated 5902-2) message] The system which generated this result transmitted reference range : 11.9 - 14.2 seconds. The reference range was not used to interpret this result as normal/abnormal . INR (test code = 1.07 <=5.90 6301-6) PTT (test code = 32.5 See_Comment [Automated 64885-5) message] The system which generated this result [...] valves. Lab Interpretation Normal (test code = 99685-7) [facility]PT/rHIU0458-73-29 04:53:34 Test Item Value Reference Interpretation Comments [...] PTT (test code = 32.5 See_Comment [Automated 42842-8) message] The system which generated this result [...] valves. Lab Interpretation Normal (test code = 55796-4) [facility]PT/iQZV3654-69-82 04:53:34 Test Item Value Reference Interpretation Comments Range Protime (test code = 13.7 See_Comment [Autom ated 5902-2) message] The system which generated this result transmitted reference range : 11.9 - 14.2 seconds. The reference range was not used to interpret this result as normal/abnormal . INR (test code = 1.07 See_Comment [Automated 5261-6) message] The system which generated this result transmitted reference range : <=5.90. The reference range was not used to interpret this result as normal/abnormal . PTT (test code = 32.5 See_Comment [Automated 32774-5) message] The system which generated this result [...] valves. Lab Interpretation Normal (test code = 48658-8) [facility]PT/BHLT9812-73-15 04:53:34 Test Item Value Reference Range Interpretation [...] mechanical heart valves.CBC W/PLT COUNT & AUTO [id number] 04:46:52 Test Item Value Reference Range Interpretation [...] PERCENT (BEAKER) (test code = 2801) POCT-GLUCOSE [id number] 11:21:11 Test Item Value Reference Range Interpretation Comments POC-GLUCOSE METER 204 mg/dL 70-110 H : TESTED A T [facility] 6720 (BEAKER) (test code = [facility], 1538) 14595: Child Attendant/Techni kelle ID = [id number] for Meeta Mcfarlane POCT-GLUCOSE [id number] 07:42:50 Test Item Value Reference Range Interpretation Comments POC-GLUCOSE METER 226 mg/dL 70-110 H : TESTED A T [facility] 6720 (BEAKER) (test code = [facility], 1538) 39115: Child Attendant/Techni kelle ID = [id number] for Meeta Mcfarlane BASIC METABOLIC [id number] 05:13:30 Test Item Value Reference Range Interpretation [...] S NOT APPLICABLE FOR DIALYSIS PATIEN TS. Child Attendant ID - LIANA NAZRUSKVPET5080-12-55 05:11:53 Test Item Value Reference Range Interpretation Comments PHOSPHORUS (BEAKER) (test code = 3.3 mg/dL 2.3-4.7 604) Child Attendant ID - LIANA [id number] 05:11:52 Test Item Value Reference Range Interpretation Comments MAGNESIUM (BEAKER) (test code = 2.0 mg/dL 1.6-2.6 627) Child Attendant ID - PIAYA LCBC W/PLT COUNT & AUTO [id number] 04:23:17 Test Item Value Reference Range Interpretation [...] PERCENT (BEAKER) (test code = 2801) POCT-GLUCOSE [id number] 17:21:48 Test Item Value Reference Range Interpretation Comments POC-GLUCOSE METER 209 mg/dL 70-110 H : TESTED A T [facility] 6720 (BEAKER) (test code = [facility], 1538) 02517: Child Attendant/Techni kelle ID = [id number] for PADMINI ALMANZAR POCT-GLUCOSE [id number] 12:56:45 Test Item Value Reference Range Interpretation Comments POC-GLUCOSE METER 81 mg/dL 70-110 : TESTED A T [facility] 6720 (BEAKER) (test code = [facility], 1538) 79539: Child Attendant/Techni kelle ID = [id number] for PADMINI GRAY Zkwcchyx8636-60-41 09:21:04 Test Item Value Reference Range Interpretation Comments Ferritin (test code = 1418.54 ng/mL 5.00-275.00 H 2276-4) BRANDI (test code = BRANDI) Child Attendant ID - HIEN M Lab Interpretation (test Abnormal code = 52512-8) [facility] 09:21:04 Test Item Value Reference Range Interpretation Comments Ferritin (test code = 1418.54 ng/mL 5.00-275.00 H 2276-4) BRANDI (test code = BRANDI) Child Attendant ID - HIEN M Lab Interpretation (test Abnormal code = 70685-5) [facility] 09:21:04 Test Item Value Reference Range Interpretation Comments Ferritin (test code = 1418.54 ng/mL 5.00-275.00 H 2276-4) BRANDI (test code = BRANDI) Child Attendant ID - HIEN M Lab Interpretation (test Abnormal code = 00064-5) [facility] 09:21:04 Test Item Value Reference Range Interpretation Comments Ferritin (test code = 1418.54 ng/mL 5.00-275.00 H 2276-4) BRANDI (test code = BRANDI) Child Attendant ID - HIEN M Lab Interpretation (test Abnormal code = 46158-3) [facility] 09:21:04 Test Item Value Reference Range Interpretation Comments Ferritin (test code = 1418.54 ng/mL 5.00-275.00 H 2276-4) BRANDI (test code = BRANDI) Child Attendant ID - HIEN M Lab Interpretation (test Abnormal code = 59842-4) [facility] 09:21:04 Test Item Value Reference Range Interpretation Comments Ferritin (test code = 1418.54 ng/mL 5.00-275.00 H 2276-4) BRANDI (test code = BRANDI) Child Attendant ID - HIEN M Lab Interpretation (test Abnormal code = 73300-0) [facility]2022-03-12 09:21:04 Test Item Value Reference Range Interpretation Comments Ferritin (test code = 1418.54 ng/mL 5.00-275.00 H 2276-4) BRANDI (test code = BRANDI) Child Attendant ID - HIEN M Lab Interpretation (test Abnormal code = 95820-4) [facility] 09:21:04 Test Item Value Reference Range Interpretation Comments Ferritin (test code = 1418.54 ng/mL 5.00-275.00 H 2276-4) BRANDI (test code = BRANDI) Child Attendant ID - HIEN M Lab Interpretation (test Abnormal code = 36180-3) [facility] 09:21:04 Test Item Value Reference Range Interpretation Comments Ferritin (test code = 1418.54 ng/mL 5.00-275.00 H 2276-4) BRANDI (test code = BRANDI) Child Attendant ID - HIEN M Lab Interpretation (test Abnormal code = 57243-2) [facility] 09:21:04 Test Item Value Reference Range Interpretation Comments Ferritin (test code = 1418.54 ng/mL 5.00-275.00 H 2276-4) BRANDI (test code = BRANDI) Child Attendant ID - HIEN M Lab Interpretation (test Abnormal code = 38669-7) [facility] 09:21:04 Test Item Value Reference Range Interpretation Comments Ferritin (test code = 1418.54 ng/mL 5.00-275.00 H 2276-4) BRANDI (test code = BRANDI) Child Attendant ID - HIEN M Lab Interpretation (test Abnormal code = 09341-2) [facility]2022-03-12 09:21:04 Test Item Value Reference Range Interpretation Comments Ferritin (test code = 1418.54 ng/mL 5.00-275.00 H 2276-4) BRANDI (test code = BRANDI) Child Attendant ID - HIEN M Lab Interpretation (test Abnormal code = 58737-2) [place] 344542-03-12 09:21:04 Test Item Value Reference Range Interpretation Comments Ferritin (test code = 1418.54 ng/mL 5.00-275.00 H 2276-4) BRANDI (test code = BRANDI) Child Attendant ID - HIEN M Lab Interpretation (test Abnormal code = 47875-6) [facility]2022-03-12 09:21:04 Test Item Value Reference Range Interpretation Comments Ferritin (test code = 1418.54 ng/mL 5.00-275.00 H 2276-4) BRANDI (test code = BRANDI) Child Attendant ID - HIEN M Lab Interpretation (test Abnormal code = 33146-3) [facility]2022-03-12 09:21:04 Test Item Value Reference Range Interpretation Comments Ferritin (test code = 1418.54 ng/mL 5.00-275.00 H 2276-4) BRANDI (test code = BRANDI) Child Attendant ID - HIEN M Lab Interpretation (test Abnormal code = 70712-9) [facility]2022-03-12 09:21:04 Test Item Value Reference Range Interpretation Comments Ferritin (test code = 1418.54 ng/mL 5.00-275.00 H 2276-4) BRANDI (test code = BRANDI) Child Attendant ID - HIEN M Lab Interpretation (test Abnormal code = 51427-7) [facility] 09:21:04 Test Item Value Reference Range Interpretation Comments Ferritin (test code = 1418.54 ng/mL 5.00-275.00 H 2276-4) BRANDI (test code = BRANDI) Child Attendant ID - HIEN Hernandes Lab Interpretation (test Abnormal code = 33667-4) [facility] 09:21:04 Test Item Value Reference Range Interpretation Comments FERRITIN (BEAKER) (test code = 1418.54 ng/mL 5.00-275.00 H 361) Child Attendant ID - HIEN [place], TIBC, % sat. (without ferritin)2021-06-13 09:01:39 Test Item Value Reference Range Interpretation Comments Iron (test code = 2498-4) 75.0 ug/dL 40.0-160.0 TIBC (test code = 2500-7) 145 ug/dL 250-450 L Iron % Saturation (test 52 % 20-55 code = 2502-3) BRANDI (test code = BRANDI) Child Attendant ID - HIEN Hernandes Lab Interpretation (test Abnormal code = 83780-9) [facility] Center[facility], TIBC, % sat. (without ferritin)2021-06-13 09:01:39 Test Item Value Reference Range Interpretation Comments Iron (test code = 2498-4) 75.0 ug/dL 40.0-160.0 TIBC (test code = 2500-7) 145 ug/dL 250-450 L Iron % Saturation (test 52 % 20-55 code = 2502-3) BRANDI (test code = BRANDI) Child Attendant ID - HIEN Hernandes Lab Interpretation (test Abnormal code = 77092-2) [facility], TIBC, % sat. (without ferritin)2021-06-13 09:01:39 Test Item Value Reference Range Interpretation Comments Iron (test code = 2498-4) 75.0 ug/dL 40.0-160.0 TIBC (test code = 2500-7) 145 ug/dL 250-450 L Iron % Saturation (test 52 % 20-55 code = 2502-3) BRANDI (test code = BRANDI) Child Attendant ID - HIEN Hernandes Lab Interpretation (test Abnormal code = 50716-2) [facility] Center[facility], TIBC, % sat. (without ferritin)2021-06-13 09:01:39 Test Item Value Reference Range Interpretation Comments Iron (test code = 2498-4) 75.0 ug/dL 40.0-160.0 TIBC (test code = 2500-7) 145 ug/dL 250-450 L Iron % Saturation (test 52 % 20-55 code = 2502-3) BRANDI (test code = BRANDI) Child Attendant ID - HIEN M Lab Interpretation (test Abnormal code = 86334-8) [facility], TIBC, % sat. (without ferritin)2021-06-13 09:01:39 Test Item Value Reference Range Interpretation Comments Iron (test code = 2498-4) 75.0 ug/dL 40.0-160.0 TIBC (test code = 2500-7) 145 ug/dL 250-450 L Iron % Saturation (test 52 % 20-55 code = 2502-3) BRANDI (test code = BRANDI) Child Attendant ID - HIEN M Lab Interpretation (test Abnormal code = 74993-1) [facility], TIBC, % sat. (without ferritin)2021-06-13 09:01:39 Test Item Value Reference Range Interpretation Comments Iron (test code = 2498-4) 75.0 ug/dL 40.0-160.0 TIBC (test code = 2500-7) 145 ug/dL 250-450 L Iron % Saturation (test 52 % 20-55 code = 2502-3) BRANDI (test code = BRANDI) Child Attendant ID - HIEN M Lab Interpretation (test Abnormal code = 85536-7) [facility], TIBC, % sat. (without ferritin)2021-06-13 09:01:39 Test Item Value Reference Range Interpretation Comments Iron (test code = 2498-4) 75.0 ug/dL 40.0-160.0 TIBC (test code = 2500-7) 145 ug/dL 250-450 L Iron % Saturation (test 52 % 20-55 code = 2502-3) BRANDI (test code = BRANDI) Child Attendant ID - HIEN M Lab Interpretation (test Abnormal code = 20413-6) [facility], TIBC, % sat. (without ferritin)2021-06-13 09:01:39 Test Item Value Reference Range Interpretation Comments Iron (test code = 2498-4) 75.0 ug/dL 40.0-160.0 TIBC (test code = 2500-7) 145 ug/dL 250-450 L Iron % Saturation (test 52 % 20-55 code = 2502-3) BRANDI (test code = BRANDI) Child Attendant ID - HIEN M Lab Interpretation (test Abnormal code = 55490-3) [facility], TIBC, % sat. (without ferritin)2021-06-13 09:01:39 Test Item Value Reference Range Interpretation Comments Iron (test code = 2498-4) 75.0 ug/dL 40.0-160.0 TIBC (test code = 2500-7) 145 ug/dL 250-450 L Iron % Saturation (test 52 % 20-55 code = 2502-3) BRANDI (test code = BRANDI) Child Attendant ID - HIEN M Lab Interpretation (test Abnormal code = 71961-8) [facility], TIBC, % sat. (without ferritin)2021-06-13 09:01:39 Test Item Value Reference Range Interpretation Comments Iron (test code = 2498-4) 75.0 ug/dL 40.0-160.0 TIBC (test code = 2500-7) 145 ug/dL 250-450 L Iron % Saturation (test 52 % 20-55 code = 2502-3) BRANDI (test code = BRANDI) Child Attendant ID - HIEN M Lab Interpretation (test Abnormal code = 02884-2) [facility], TIBC, % sat. (without ferritin)2021-06-13 09:01:39 Test Item Value Reference Range Interpretation Comments Iron (test code = 2498-4) 75.0 ug/dL 40.0-160.0 TIBC (test code = 2500-7) 145 ug/dL 250-450 L Iron % Saturation (test 52 % 20-55 code = 2502-3) BRANDI (test code = BRANDI) Child Attendant ID - HIEN M Lab Interpretation (test Abnormal code = 91532-6) [facility], TIBC, % sat. (without ferritin)2021-06-13 09:01:39 Test Item Value Reference Range Interpretation Comments Iron (test code = 2498-4) 75.0 ug/dL 40.0-160.0 TIBC (test code = 2500-7) 145 ug/dL 250-450 L Iron % Saturation (test 52 % 20-55 code = 2502-3) BRANDI (test code = BRANDI) Child Attendant ID - HIEN M Lab Interpretation (test Abnormal code = 51136-1) [facility], TIBC, % sat. (without ferritin)2021-06-13 09:01:39 Test Item Value Reference Range Interpretation Comments Iron (test code = 2498-4) 75.0 ug/dL 40.0-160.0 TIBC (test code = 2500-7) 145 ug/dL 250-450 L Iron % Saturation (test 52 % 20-55 code = 2502-3) BRANDI (test code = BRANDI) Child Attendant ID - HIEN M Lab Interpretation (test Abnormal code = 90970-6) [facility], TIBC, % sat. (without ferritin)2021-06-13 09:01:39 Test Item Value Reference Range Interpretation Comments Iron (test code = 2498-4) 75.0 ug/dL 40.0-160.0 TIBC (test code = 2500-7) 145 ug/dL 250-450 L Iron % Saturation (test 52 % 20-55 code = 2502-3) BRANDI (test code = BRANDI) Child Attendant ID - HIEN M Lab Interpretation (test Abnormal code = 46096-3) [facility], TIBC, % sat. (without ferritin)2021-06-13 09:01:39 Test Item Value Reference Range Interpretation Comments Iron (test code = 2498-4) 75.0 ug/dL 40.0-160.0 TIBC (test code = 2500-7) 145 ug/dL 250-450 L Iron % Saturation (test 52 % 20-55 code = 2502-3) BRANDI (test code = BRANDI) Child Attendant ID - HIEN M Lab Interpretation (test Abnormal code = 62397-2) [facility], TIBC, % sat. (without ferritin)2021-06-13 09:01:39 Test Item Value Reference Range Interpretation Comments Iron (test code = 2498-4) 75.0 ug/dL 40.0-160.0 TIBC (test code = 2500-7) 145 ug/dL 250-450 L Iron % Saturation (test 52 % 20-55 code = 2502-3) BRANDI (test code = BRANDI) Child Attendant ID - HIEN M Lab Interpretation (test Abnormal code = 19576-5) [facility]2021-06-13 09:01:39 Test Item Value Reference Range Interpretation Comments Iron (test code = 2498-4) 75.0 ug/dL 40.0-160.0 TIBC (test code = 2500-7) 145 ug/dL 250-450 L Iron % Saturation (test 52 % 20-55 code = 2502-3) BRANDI (test code = BRANDI) Child Attendant ID Bassam STANFORD M Lab Interpretation (test Abnormal code = 98238-4) [facility], TIBC, % SAT. (WITHOUT FERRITIN)2021-06-13 09:01:39 Test Item Value Reference Range Interpretation Comments IRON (BEAKER) (test code = 547) 75.0 ug/dL 40.0-160.0 TOTAL IRON BINDING CAPACITY 145 ug/dL 250-450 L (BEAKER) (test code = 769) IRON % SATURATION (2) (BEAKER) 52 % 20-55 (test code = 2590) Child Attendant ID Basasm STANFORD MPOCT-GLUCOSE [id number] 08:51:07 Test Item Value Reference Range Interpretation Comments POC-GLUCOSE METER 106 mg/dL 70-110 : [facility] ([facility]ER[facility] (test code = [place], 1538) [address]: Child Attendant/Techni kelle ID = [id number] for PADMINI ALMANZAR BASIC METABOLIC [id number] 04:21:54 Test Item Value Reference Range Interpretation [...] S NOT APPLICABLE FOR DIALYSIS PATIEN TS. Child Attendant ID - HIEN [id number] 04:17:34 Test Item Value Reference Range Interpretation Comments MAGNESIUM (BEAKER) (test code = 2.0 mg/dL 1.6-2.6 627) Child Attendant ID - HIEN [id number] 04:17:34 Test Item Value Reference Range Interpretation Comments PHOSPHORUS (BEAKER) (test code = 3.1 mg/dL 2.3-4.7 604) Child Attendant ID - HIEN MCBC W/PLT COUNT & AUTO [id number] 03:49:10 Test Item Value Reference Range Interpretation [...] PERCENT (BEAKER) (test code = 2801) SARS-COV2/RT-PCR ([facility])2021-06-13 02:28:08 Test Item Value Reference Range Interpretation Comments SARS-COV2/RT-PCR (test code = Negative Negative 7744290) Negative result for this test determines that [...] 564(g) of the Act.Testing was performed using [employer] SARS-CoV-2 assay.Fact Sheet for Healthcare Providers:https://www.Contorion/ct/RT SARS-CoV-2 HCP Fact Sheet 51- 295279.pdfFact Sheet for Healthcare Patients:https://www.Contorion/ct/RT SARS-CoV-2 Patient Fact Sheet EN 51-421054I9.pdfPOCT-GLUCOSE [id number] 02:01:02 Test Item Value Reference Range Interpretation Comments POC-GLUCOSE METER 98 mg/dL 70-110 : TESTED A T [facility] 6720 (BEAKER) (test code = [facility], 1538) [address]: Child Attendant/Techni kelle ID = [id number] for SREEKANTH ROSS POCT-GLUCOSE [id number] 02:00:06 Test Item Value Reference Range Interpretation Comments POC-GLUCOSE METER 151 mg/dL 70-110 H : TESTED A T [facility] 6720 (BEAKER) (test code = [facility], 1538) [address]: Child Attendant/Techni kelle ID = [id number] for LL REY, CECYA BLOOD [id number] 23:01:20 Test Item Value Reference Range Interpretation Comments CULTURE (BEAKER) (test No growth in 5 days code = 1095) BLOOD [id number] 23:01:19 Test Item Value Reference Range Interpretation Comments CULTURE (BEAKER) (test No growth in 5 days code = 1095) CT, BRAIN, WITHOUT [id number] 08:55:00Unlisted Reason for Exam - Click Yes and Enter Reason Below->No [facility] 1955 Sex: FFINAL [...] [place] Verified Date/Time: 06/12/2021 08:55:52 Reading Location: [address] Neuro Reading Room POCT-GLUCOSE [id number] 07:42:49 Test Item Value Reference Range Interpretation Comments POC-GLUCOSE METER 113 mg/dL 70-110 H : TESTED A T [facility] 67[address] ([employer]) (test code = [place], 1538) [address]: Child Attendant/Techni kelle ID = [id number] for Sheryl Enciso POCT-GLUCOSE [id number] 07:42:05 Test Item Value Reference Range Interpretation Comments POC-GLUCOSE METER 131 mg/dL 70-110 H : TESTED A T [facility] 6720 ([employer]) (test code = [place], 1538) [address]: Child Attendant/Techni kelle ID = [id number] for JI MONTAÑO POCT-GLUCOSE [id number] 07:32:16 Test Item Value Reference Range Interpretation Comments POC-GLUCOSE METER 127 mg/dL 70-110 H : [facility] (AKASH) (test code = [facility], 1538) [address]: Child Attendant/Techni kelle ID = [id number] for GURINDER VILLA CT, CTANGIO [id number] 03:03:00Reason for exam:->Symptoms onset less than 6 hours and NIHSS 6 or greater [facility] MONTOYA : 1955 Sex: [...] the film. IMPRESSION: No evidence of a kashia of Pandey proximal branch vessel occlusion or [...] and interstitial pulmonary edema. Signed: Nikole Baron [facility] Verified Date/Time: 06/12/2021 03:03:56 [facility], CAROTID, [id number] 03:03:00Reason for exam:- >Symptoms onset less than 6 hours and NIHSS 6 or greater [facility] : 1955 Sex: FFINAL [...] the film. IMPRESSION: No evidence of a kashia of Pandey proximal branch vessel occlusion or [...] effusion and interstitial pulmonary edema. Signed: Nikole Baronepwade Verified Date/Time: 06/12/2021 03:03:56 PROTHROMBIN TIME/[id number] 01:46:16 Test Item Value Reference Range Interpretation Comments PROTIME (BEAKER) 15.0 seconds 11.9-14.2 H (test code = 759) INR (BEAKER) (test 1.20 See_Comment [Automat ed message] code = 370) The system bettermarks generated this result transmitted ref erence range: <=5.90. The reference range was not used to int erpret this result as normal/abnormal . RECOMMENDED COUMADIN/WARFARIN INR THERAPY RANGESSTANDARD DOSE: 2.0 - 3.0 Includes: PROPHYLAXIS for venous thrombosis, systemic embolization; TREATMENT for venous thrombosis and/or pulmonary embolus.HIGH RISK: Target INR is 2.5-3.5 for patients with mechanical heart valves.CBC W/PLT COUNT & AUTO [id number] 01:45:34 Test Item Value Reference Range Interpretation [...] (test code = 2801) CT, BRAIN, WITHOUT [id number] 01:38:00Unlisted Reason for Exam - Click Yes and Enter Reason Below->No [facility] : 1955 Sex: [...] Date/Time: 06/12/2021 01:38:35 High Sensitivity Troponin I ([facility]/Jin Only)2021-06-12 01:35:31 Test Item Value Reference Range Interpretation Comments Troponin I HS (test 231 pg/ml See_Comment H [Automa levi code = 08430-8) message] The system which generated this result transmitted reference range : <=17. The reference range was not used to interpret this result as normal/abnormal . BRANDI (test code = Child Attendant ID - BRANDI) DBThe SCREEN TACKER STAT High Sensitivity Troponin-I results should be used in conjunction with other diagnostic information such as ECG, clinical observations and information, and patient symptoms to aid in the diagnosis of ME. Lab Interpretation Abnormal (test code = 15128-9) [facility]Jin Only[facility] 2021-06-12 01:35:31 Test Item Value Reference Range Interpretation Comments Troponin I HS (test 231 pg/ml See_Comment H [Automa levi code = 62713-3) message] The system which generated this result transmitted reference range : <=17. The reference range was not used to interpret this result as normal/abnormal . BRANDI (test code = Child Attendant ID - BRANDI) DBThe SCREEN TACKER STAT High Sensitivity Troponin-I results should be used in conjunction with other diagnostic information such as ECG, clinical observations and information, and patient symptoms to aid in the diagnosis of ME. Lab Interpretation Abnormal (test code = 52643-4) [facility] 2021-06-12 01:35:31 Test Item Value Reference Range Interpretation Comments Troponin I HS (test 231 pg/ml See_Comment H [Automa levi code = 56726-5) message] The system which generated this result transmitted reference range : <=17. The reference range was not used to interpret this result as normal/abnormal . BRANDI (test code = Child Attendant ID - BRANDI) DBThe SCREEN TACKER STAT High Sensitivity Troponin-I results should be used in conjunction with other diagnostic information such as ECG, clinical observations and information, and patient symptoms to aid in the diagnosis of ME. Lab Interpretation Abnormal (test code = 88938-3) [facility]in [facility] 2021-06-12 01:35:31 Test Item Value Reference Range Interpretation Comments Troponin I HS (test 231 pg/ml See_Comment H [Automa levi code = 89541-9) message] The system which generated this result transmitted reference range : <=17. The reference range was not used to interpret this result as normal/abnormal . BRANDI (test code = Child Attendant ID - BRANDI) DBThe SCREEN TACKER STAT High Sensitivity Troponin-I results should be used in conjunction with other diagnostic information such as ECG, clinical observations and information, and patient symptoms to aid in the diagnosis of ME. Lab Interpretation Abnormal (test code = 36018-7) [facility] 2021-06-12 01:35:31 Test Item Value Reference Range Interpretation Comments Troponin I HS (test 231 pg/ml See_Comment H [Automa levi code = 03098-5) message] The system which generated this result transmitted reference range : <=17. The reference range was not used to interpret this result as normal/abnormal . BRANDI (test code = Child Attendant ID - BRANDI) DBThe SCREEN TACKER STAT High Sensitivity Troponin-I results should be used in conjunction with other diagnostic information such as ECG, clinical observations and information, and patient symptoms to aid in the diagnosis of ME. Lab Interpretation Abnormal (test code = 52669-7) [facility] ([facility]in Only[facility] 2021-06-12 01:35:31 Test Item Value Reference Range Interpretation Comments Troponin I HS (test 231 pg/ml See_Comment H [Automa levi code = 02336-4) message] The system which generated this result transmitted reference range : <=17. The reference range was not used to interpret this result as normal/abnormal . BRANDI (test code = Child Attendant ID - BRANDI) DBThe SCREEN TACKER STAT High Sensitivity Troponin-I results should be used in conjunction with other diagnostic information such as ECG, clinical observations and information, and patient symptoms to aid in the diagnosis of ME. Lab Interpretation Abnormal (test code = 30734-3) [facility] ([facility]in [facility] 2021-06-12 01:35:31 Test Item Value Reference Range Interpretation Comments Troponin I HS (test 231 pg/ml See_Comment H [Automa levi code = 73779-4) message] The system which generated this result transmitted reference range : <=17. The reference range was not used to interpret this result as normal/abnormal . BRANDI (test code = Child Attendant ID - BRANDI) DBThe SCREEN TACKER STAT High Sensitivity Troponin-I results should be used in conjunction with other diagnostic information such as ECG, clinical observations and information, and patient symptoms to aid in the diagnosis of ME. Lab Interpretation Abnormal (test code = 38057-6) [facility] 2021-06-12 01:35:31 Test Item Value Reference Range Interpretation Comments Troponin I HS (test 231 pg/ml See_Comment H [Automa levi code = 10093-3) message] The system which generated this result transmitted reference range : <=17. The reference range was not used to interpret this result as normal/abnormal . BRANDI (test code = Child Attendant ID - BRANDI) DBThe SCREEN TACKER STAT High Sensitivity Troponin-I results should be used in conjunction with other diagnostic information such as ECG, clinical observations and information, and patient symptoms to aid in the diagnosis of ME. Lab Interpretation Abnormal (test code = 55439-3) [facility] 2021-06-12 01:35:31 Test Item Value Reference Range Interpretation Comments Troponin I HS (test 231 pg/ml See_Comment H [Automa levi code = 42736-2) message] The system which generated this result transmitted reference range : <=17. The reference range was not used to interpret this result as normal/abnormal . BRANDI (test code = Child Attendant ID - BRANDI) [employer] SCREEN TACKER STAT High Sensitivity Troponin-I results should be used in conjunction with other diagnostic information such as ECG, clinical observations and information, and patient symptoms to aid in the diagnosis of ME. Lab Interpretation Abnormal (test code = 47633-1) [facility] ([facility]Jin Only) 2021-06-12 01:35:31 Test Item Value Reference Range Interpretation Comments Troponin I HS (test 231 pg/ml See_Comment H [Automa levi code = 35282-6) message] The system which generated this result transmitted reference range : <=17. The reference range was not used to interpret this result as normal/abnormal . BRANDI (test code = Child Attendant ID - BRANDI) DBThe SCREEN TACKER STAT High Sensitivity Troponin-I results should be used in conjunction with other diagnostic information such as ECG, clinical observations and information, and patient symptoms to aid in the diagnosis of ME. Lab Interpretation Abnormal (test code = 34617-4) [facility] ([facility]in [facility] 2021-06-12 01:35:31 Test Item Value Reference Range Interpretation Comments Troponin I HS (test 231 pg/ml See_Comment H [Automa levi code = 23987-3) message] The system which generated this result transmitted reference range : <=17. The reference range was not used to interpret this result as normal/abnormal . BRANDI (test code = Child Attendant ID - BRANDI) DBThe SCREEN TACKER STAT High Sensitivity Troponin-I results should be used in conjunction with other diagnostic information such as ECG, clinical observations and information, and patient symptoms to aid in the diagnosis of ME. Lab Interpretation Abnormal (test code = 73604-7) [facility]in [facility] 2021-06-12 01:35:31 Test Item Value Reference Range Interpretation Comments Troponin I HS (test 231 pg/ml See_Comment H [Automa levi code = 11082-3) message] The system which generated this result transmitted reference range : <=17. The reference range was not used to interpret this result as normal/abnormal . BRANDI (test code = Child Attendant ID - BRANDI) DBThe SCREEN TACKER STAT High Sensitivity Troponin-I results should be used in conjunction with other diagnostic information such as ECG, clinical observations and information, and patient symptoms to aid in the diagnosis of ME. Lab Interpretation Abnormal (test code = 18117-3) [facility] ([facility]in Only[facility] 2021-06-12 01:35:31 Test Item Value Reference Range Interpretation Comments Troponin I HS (test 231 pg/ml See_Comment H [Automa levi code = 95118-9) message] The system which generated this result transmitted reference range : <=17. The reference range was not used to interpret this result as normal/abnormal . BRANDI (test code = Child Attendant ID - BRANDI) DBThe SCREEN TACKER STAT High Sensitivity Troponin-I results should be used in conjunction with other diagnostic information such as ECG, clinical observations and information, and patient symptoms to aid in the diagnosis of ME. Lab Interpretation Abnormal (test code = 47099-3) [facility] 2021-06-12 01:35:31 Test Item Value Reference Range Interpretation Comments Troponin I HS (test 231 pg/ml See_Comment H [Automa levi code = 46875-8) message] The system which generated this result transmitted reference range : <=17. The reference range was not used to interpret this result as normal/abnormal . BRANDI (test code = Child Attendant ID - BRANDI) DBThe SCREEN TACKER STAT High Sensitivity Troponin-I results should be used in conjunction with other diagnostic information such as ECG, clinical observations and information, and patient symptoms to aid in the diagnosis of ME. Lab Interpretation Abnormal (test code = 72868-7) [facility] 2021-06-12 01:35:31 Test Item Value Reference Range Interpretation Comments Troponin I HS (test code 231 pg/ml <=17 H = 83461-9) BRANDI (test code = BRANDI) Child Attendant ID - DBThe SCREEN TACKER STAT High Sensitivity Troponin-I results should be used in conjunction with other diagnostic information such as ECG, clinical observations and information, and patient symptoms to aid in the diagnosis of ME. Lab Interpretation (test Abnormal code = 32050-7) [facility] 2021-06-12 01:35:31 Test Item Value Reference Range Interpretation Comments Troponin I HS (test 231 pg/ml See_Comment H [Automa levi code = 53309-5) message] The system which generated this result transmitted reference range : <=17. The reference range was not used to interpret this result as normal/abnormal . BRADNI (test code = Child Attendant ID - BRANDI) DBThe SCREEN TACKER STAT High Sensitivity Troponin-I results should be used in conjunction with other diagnostic information such as ECG, clinical observations and information, and patient symptoms to aid in the diagnosis of ME. Lab Interpretation Abnormal (test code = 89113-3) [facility] ([facility]in Only[facility] 2021-06-12 01:35:31 Test Item Value Reference Range Interpretation Comments Troponin I HS (test 231 pg/ml See_Comment H [Automa levi code = 06099-3) message] The system which generated this result transmitted reference range : <=17. The reference range was not used to interpret this result as normal/abnormal . BRANDI (test code = Child Attendant ID - BRANDI) DBThe SCREEN TACKER STAT High Sensitivity Troponin-I results should be used in conjunction with other diagnostic information such as ECG, clinical observations and information, and patient symptoms to aid in the diagnosis of ME. Lab Interpretation Abnormal (test code = 35344-9) [facility] TROP[facility]IN [id number] 01:35:31 Test Item Value Reference Range Interpretation Comments HIGH SENSITIVITY 231 pg/ml See_Comment H [Automated message] TROPONIN I (test code The sy stem which = 0451279) generated this result transmitted ref erence range: <=17. Th e reference range was not used to int erpret this result as normal/abnormal . Child Attendant ID - DBThe SCREEN TACKER STAT High Sensitivity Troponin-I results should be used in conjunctionwith other diagnostic information such as ECG, clinical observations and information, and patient symptoms to aid in the diagnosis of ME.BASIC METABOLIC [id number] 01:29:11 Test Item Value Reference Range Interpretation [...] S NOT APPLICABLE FOR DIALYSIS PATIEN TS. Child Attendant ID - [id number] 01:28:34 Test Item Value Reference Range Interpretation Comments PHOSPHORUS (BEAKER) 4.6 mg/dL 2.3-4.7 Specimen slightly (test code = 604) hemolyzed Child Attendant ID - [id number] 01:28:33 Test Item Value Reference Range Interpretation Comments MAGNESIUM (BEAKER) 2.2 mg/dL 1.6-2.6 Specimen slightly (test code = 627) hemolyzed Child Attendant ID - DBLactic acid, [id number] 01:26:32 Test Item Value Reference Range Interpretation Comments Lactate, Venous (test code = 0.87 mmol/L 0.50-2.20 2872) BRANDI (test code = BRANDI) Child Attendant ID - DB Lab Interpretation (test Normal code = 52126-3) [id number] 01:26:32 Test Item Value Reference Range Interpretation Comments Lactate, Venous (test code = 0.87 mmol/L 0.50-2.20 2872) BRANDI (test code = BRANDI) Child Attendant ID - DB Lab Interpretation (test Normal code = 86076-5) [facility] [id number] 01:26:32 Test Item Value Reference Range Interpretation Comments Lactate, Venous (test code = 0.87 mmol/L 0.50-2.20 2872) BRANDI (test code = BRANDI) Child Attendant ID - DB Lab Interpretation (test Normal code = 88866-4) [facility] [id number] 01:26:32 Test Item Value Reference Range Interpretation Comments Lactate, Venous (test code = 0.87 mmol/L 0.50-2.20 2872) BRANDI (test code = BRANDI) Child Attendant ID - DB Lab Interpretation (test Normal code = 72343-8) [facility] [id number] 01:26:32 Test Item Value Reference Range Interpretation Comments Lactate, Venous (test code = 0.87 mmol/L 0.50-2.20 2872) BRANDI (test code = BRANDI) Child Attendant ID - DB Lab Interpretation (test Normal code = 04017-3) [facility] [id number] 01:26:32 Test Item Value Reference Range Interpretation Comments Lactate, Venous (test code = 0.87 mmol/L 0.50-2.20 2872) BRANDI (test code = BRANDI) Child Attendant ID - DB Lab Interpretation (test Normal code = 33836-4) [facility] [id number] 01:26:32 Test Item Value Reference Range Interpretation Comments Lactate, Venous (test code = 0.87 mmol/L 0.50-2.20 2872) BRANDI (test code = BRANDI) Child Attendant ID - DB Lab Interpretation (test Normal code = 49576-9) [facility] [id number] 01:26:32 Test Item Value Reference Range Interpretation Comments Lactate, Venous (test code = 0.87 mmol/L 0.50-2.20 2872) BRANDI (test code = BRANDI) Child Attendant ID - DB Lab Interpretation (test Normal code = 64019-8) [facility] [id number] 01:26:32 Test Item Value Reference Range Interpretation Comments Lactate, Venous (test code = 0.87 mmol/L 0.50-2.20 2872) BRANDI (test code = BRANDI) Child Attendant ID - DB Lab Interpretation (test Normal code = 56936-7) [facility] [id number] 01:26:32 Test Item Value Reference Range Interpretation Comments Lactate, Venous (test code = 0.87 mmol/L 0.50-2.20 2872) BRANDI (test code = BRANDI) Child Attendant ID - DB Lab Interpretation (test Normal code = 03488-4) [facility] [id number] 01:26:32 Test Item Value Reference Range Interpretation Comments Lactate, Venous (test code = 0.87 mmol/L 0.50-2.20 2872) BRANDI (test code = BRANDI) Child Attendant ID - DB Lab Interpretation (test Normal code = 54472-7) [facility], [id number] 01:26:32 Test Item Value Reference Range Interpretation Comments Lactate, Venous (test code = 0.87 mmol/L 0.50-2.20 2872) BRANDI (test code = BRANDI) Child Attendant ID - DB Lab Interpretation (test Normal code = 57660-3) [facility], [id number] 01:26:32 Test Item Value Reference Range Interpretation Comments Lactate, Venous (test code = 0.87 mmol/L 0.50-2.20 2872) BRANDI (test code = BRANDI) Child Attendant ID - DB Lab Interpretation (test Normal code = 83384-1) [facility] [id number] 01:26:32 Test Item Value Reference Range Interpretation Comments Lactate, Venous (test code = 0.87 mmol/L 0.50-2.20 2872) BRANDI (test code = BRANDI) Child Attendant ID - DB Lab Interpretation (test Normal code = 67414-3) [facility] Center[facility], [id number] 01:26:32 Test Item Value Reference Range Interpretation Comments Lactate, Venous (test code = 0.87 mmol/L 0.50-2.20 2872) BRANDI (test code = BRANDI) Child Attendant ID - DB Lab Interpretation (test Normal code = 68798-4) [facility] [id number] 01:26:32 Test Item Value Reference Range Interpretation Comments Lactate, Venous (test code = 0.87 mmol/L 0.50-2.20 2872) BRANDI (test code = BRANDI) Child Attendant ID - DB Lab Interpretation (test Normal code = 81268-8) [facility] [id number] 01:26:32 Test Item Value Reference Range Interpretation Comments Lactate, Venous (test code = 0.87 mmol/L 0.50-2.20 2872) BRANDI (test code = BRANDI) Child Attendant ID - DB Lab Interpretation (test Normal code = 25431-2) [facility], [id number] 01:26:32 Test Item Value Reference Range Interpretation Comments LACTATE BLOOD VENOUS (2) (BEAKER) 0.87 mmol/L 0.50-2.20 (test code = 2872) Child Attendant ID - DBPOCT-GLUCOSE [id number] 16:24:28 Test Item Value Reference Range Interpretation Comments POC-GLUCOSE METER 244 mg/dL 70-110 H : TESTED A T [facility] 6720 (BEAKER) (test code = YUDY Vaca [facility], 1538) [address]: Child Attendant/Techni kelle ID = [id number] for Maranda Menjivar POCT-GLUCOSE [id number] 11:29:05 Test Item Value Reference Range Interpretation Comments POC-GLUCOSE METER 168 mg/dL 70-110 H : TESTED A T [facility] 6720 (BEAKER) (test code = YUDY [place], 1538) 127[address]: Child Attendant/Techni kelle ID = [id number] for Re Maranda brownlee POCT-GLUCOSE [id number] 06:45:50 Test Item Value Reference Range Interpretation Comments POC-GLUCOSE METER 132 mg/dL 70-110 H : TESTED A T [facility] 6720 (BEAKER) (test code = YUDY [place], 1538) [address]: Child Attendant/Techni kelle ID = [id number] for UG GHADA HAMLIN BASIC METABOLIC [id number] 05:08:08 Test Item Value Reference Range Interpretation [...] S NOT APPLICABLE FOR DIALYSIS PATIEN TS. Child Attendant ID - HIEN [id number] 04:56:38 Test Item Value Reference Range Interpretation Comments MAGNESIUM (BEAKER) (test code = 1.9 mg/dL 1.6-2.6 627) Child Attendant ID - HIEN [id number] 04:56:38 Test Item Value Reference Range Interpretation Comments PHOSPHORUS (BEAKER) (test code = 3.7 mg/dL 2.3-4.7 604) Child Attendant ID - HIEN [facility] W/PLT COUNT & AUTO [id number] 04:33:28 Test Item Value Reference Range Interpretation [...] = 2801) CBC W/PLT COUNT & AUTO [id number] 22:57:11 Test Item Value Reference Range Interpretation [...] = 2801) RAD, CHEST, 1 VIEW, NON [id number] 22:44:00Reason for exam:- >dyspneaShould this be performed at the bedside?->Yes [facility] 1955 Sex: FFINAL [...] New, moderate right pleural effusion. Signed: Braxton Quinteor MDReportVerified Date/Time: 06/10/2021 22:44:59 Electronically signed by: BRAXTON QUINTERO M.D. on 0:44 [id number] 22:43:07 Test Item Value Reference Range Interpretation Comments POC-Glucose (test code = 118 mg/dL 70-110 H : T ESTED AT [facility] 4155) [address]16 [facility], 770 30: Child Attendant/Techni kelle ID = [id number] for MARFIL, JOSE ARMANDO Lab Interpretation (test Abnormal code = 61149-5) [id number] 22:43:07 Test Item Value Reference Range Interpretation Comments POC-Glucose (test code = 118 mg/dL 70-110 H : [facility] [address] [place] [address], 770 30: Child Attendant/Techni kelle ID = [id number] for MARFIL, JOSE ARMANDO Lab Interpretation (test Abnormal code = 99689-1) [facility]2022-03-09 22:43:07 Test Item Value Reference Range Interpretation Comments POC-Glucose (test code = 118 mg/dL 70-110 H : [facility] [address] [place] [address], 770 30: Child Attendant/Techni kelle ID = [id number] for MARFIL, JOSE ARMANDO Lab Interpretation (test Abnormal code = 90621-6) [facility]2022-03-09 22:43:07 Test Item Value Reference Range Interpretation Comments POC-Glucose (test code = 118 mg/dL 70-110 H : [facility] [address] [place] [address], 770 30: Child Attendant/Techni kelle ID = [id number] for MARFIL, JOSE ARMANDO Lab Interpretation (test Abnormal code = 08765-0) [facility]2022-03-09 22:43:07 Test Item Value Reference Range Interpretation Comments POC-Glucose (test code = 118 mg/dL 70-110 H : [facility] [address] [place] [address], 770 30: Child Attendant/Techni kelle ID = [id number] for MARFIL, JOSE ARMANDO Lab Interpretation (test Abnormal code = 68063-8) [facility]2022-03-09 22:43:07 Test Item Value Reference Range Interpretation Comments POC-Glucose (test code = 118 mg/dL 70-110 H : [facility] [address] [place] [address], 770 30: Child Attendant/Techni kelle ID = [id number] for MARFIL, JOSE ARMANDO Lab Interpretation (test Abnormal code = 18787-6) [facility]2022-03-09 22:43:07 Test Item Value Reference Range Interpretation Comments POC-Glucose (test code = 118 mg/dL 70-110 H : [facility] [address] [place] [address], 770 30: Child Attendant/Techni kelle ID = [id number] for MARFIL, JOSE ARMANDO Lab Interpretation (test Abnormal code = 03424-0) [facility]2022-03-09 22:43:07 Test Item Value Reference Range Interpretation Comments POC-Glucose (test code = 118 mg/dL 70-110 H : [facility] [address] [place] [address], 770 30: Child Attendant/Techni kelle ID = [id number] for MARFIL, JOSE ARMANDO Lab Interpretation (test Abnormal code = 08753-1) [facility]2022-03-09 22:43:07 Test Item Value Reference Range Interpretation Comments POC-Glucose (test code = 118 mg/dL 70-110 H : T ESTED AT [facility] 1855) [address] [place] [address], 770 30: Child Attendant/Techni kelle ID = [id number] for MARFIL, JOSE ARMANDO Lab Interpretation (test Abnormal code = 16457-6) [facility]2022-03-09 22:43:07 Test Item Value Reference Range Interpretation Comments POC-Glucose (test code = 118 mg/dL 70-110 H : [facility] [address] [place] [address], 770 30: Child Attendant/Techni kelle ID = [id number] for MARFIL, JOSE ARMANDO Lab Interpretation (test Abnormal code = 01459-5) [facility]2022-03-09 22:43:07 Test Item Value Reference Range Interpretation Comments POC-Glucose (test code = 118 mg/dL 70-110 H : [facility] [address] [place] [address], 770 30: Child Attendant/Techni kelle ID = [id number] for MARFIL, JOSE ARMANDO Lab Interpretation (test Abnormal code = 80159-2) [facility]2022-03-09 22:43:07 Test Item Value Reference Range Interpretation Comments POC-Glucose (test code = 118 mg/dL 70-110 H : [facility] [address] [place] [address], 770 30: Child Attendant/Techni kelle ID = [id number] for MARFIL, JOSE ARMANDO Lab Interpretation (test Abnormal code = 89913-7) [facility]2022-03-09 22:43:07 Test Item Value Reference Range Interpretation Comments POC-Glucose (test code = 118 mg/dL 70-110 H : [facility] [address] [place] [address], 770 30: Child Attendant/Techni kelle ID = [id number] for MARFIL, JOSE ARMANDO Lab Interpretation (test Abnormal code = 18258-4) [facility]2022-03-09 22:43:07 Test Item Value Reference Range Interpretation Comments POC-Glucose (test code = 118 mg/dL 70-110 H : [facility] [address] [place] [address], 770 30: Child Attendant/Techni kelle ID = [id number] for MARFIL, JOSE ARMANDO Lab Interpretation (test Abnormal code = 90828-4) [facility]2022-03-09 22:43:07 Test Item Value Reference Range Interpretation Comments POC-Glucose (test code = 118 mg/dL 70-110 H : [facility] [address] [place] [address], 770 30: Child Attendant/Techni kelle ID = [id number] for MARFIL, JOSE ARMANDO Lab Interpretation (test Abnormal code = 47377-1) [facility]2022-03-09 22:43:07 Test Item Value Reference Range Interpretation Comments POC-Glucose (test code = 118 mg/dL 70-110 H : [facility] [address] [place] [address], 770 30: Child Attendant/Techni kelle ID = [id number] for MARFIL, JOSE ARMANDO Lab Interpretation (test Abnormal code = 91873-2) [facility]2022-03-09 22:43:07 Test Item Value Reference Range Interpretation Comments POC-Glucose (test code = 118 mg/dL 70-110 H : [facility] [address] [place] [address], 770 30: Child Attendant/Techni kelle ID = [id number] for MARFIL, JOSE ARMANDO Lab Interpretation (test Abnormal code = 21954-5) [id number] 22:43:07 Test Item Value Reference Range Interpretation Comments POC-GLUCOSE (BEAKER) 118 mg/dL 70-110 H : TESTE D AT [facility] 6720 (test code = 1855) [place], [address]: Child Attendant/Techni kelle ID = [id number] for MARF IL, JOSE ARMANDO [id number]-[id number] 22:43:06 Test Item Value Reference Range Interpretation Comments POC-Hemoglobin (test code 8.2 g/dL 12.0-15.0 L : TESTED AT [facility] = 1856) 6720 [facility], 770 30: Child Attendant/Techni kelle ID = [id number] for MARFIL, JOSE ARMANDO Lab Interpretation (test Abnormal code = 17238-1) [facility] CenterNqnslkEPKR-CTNUFRPSDA1375-71-09 22:43:06 Test Item Value Reference Range Interpretation Comments POC-Hematocrit (test code 24 % 36-45 L : = 1857) Child Attendant/Techni kelle ID = [id number] for MARFIL, JOSE ARMANDO Lab Interpretation (test Abnormal code = 10189-9) [facility] CenterRbnwhcZRUV-FCPNTLYIIX6292-59-09 22:43:06 Test Item Value Reference Range Interpretation Comments POC-Hemoglobin (test code 8.2 g/dL 12.0-15.0 L : TESTED AT [facility] = 1856) 6720 [facility], 770 30: Child Attendant/Techni kelle ID = [id number] for MARFIL, JOSE ARMANDO Lab Interpretation (test Abnormal code = 60993-2) [facility] CenterUvgceoDAJC-[id number] 22:43:06 Test Item Value Reference Range Interpretation Comments POC-Hematocrit (test code 24 % 36-45 L : = 1857) Child Attendant/Techni kelle ID = [id number] for MARFIL, JOSE ARMANDO Lab Interpretation (test Abnormal code = 45118-7) [facility] CenterPpisduGPFD-[id number] 22:43:06 Test Item Value Reference Range Interpretation Comments POC-Hemoglobin (test code 8.2 g/dL 12.0-15.0 L : TESTED AT [facility] = 1856) [address] [place] [address], 770 30: Child Attendant/Techni kelle ID = [id number] for MARFIL, JOSE ARMANDO Lab Interpretation (test Abnormal code = 01410-5) [facility]-[id number] 22:43:06 Test Item Value Reference Range Interpretation Comments POC-Hematocrit (test code 24 % 36-45 L : = 1857) Child Attendant/Techni kelle ID = [id number] for MARFIL, JOSE ARMANDO Lab Interpretation (test Abnormal code = 09660-9) [facility]-JMPINQMGSH3706-29-06 22:43:06 Test Item Value Reference Range Interpretation Comments POC-Hemoglobin (test code 8.2 g/dL 12.0-15.0 L : TESTED AT [facility] = 1856) [address] [place] [address], 770 30: Child Attendant/Techni kelle ID = [id number] for MARFIL, JOSE ARMANDO Lab Interpretation (test Abnormal code = 06169-0) [facility]-[id number] 22:43:06 Test Item Value Reference Range Interpretation Comments POC-Hematocrit (test code 24 % 36-45 L : = 1857) Child Attendant/Techni kelle ID = [id number] for MARFIL, JOSE ARMANDO Lab Interpretation (test Abnormal code = 57870-8) [facility]-IKUTRJBGYG9623-02-07 22:43:06 Test Item Value Reference Range Interpretation Comments POC-Hemoglobin (test code 8.2 g/dL 12.0-15.0 L : TESTED AT [facility] = 1856) [address] [place] [address], 770 30: Child Attendant/Techni kelle ID = [id number] for MARFIL, JOSE ARMANDO Lab Interpretation (test Abnormal code = 25758-6) [facility]-[id number] 22:43:06 Test Item Value Reference Range Interpretation Comments POC-Hematocrit (test code 24 % 36-45 L : = 1857) Child Attendant/Techni kelle ID = [id number] for MARFIL, JOSE ARMANDO Lab Interpretation (test Abnormal code = 23523-8) [facility]-[id number] 22:43:06 Test Item Value Reference Range Interpretation Comments POC-Hemoglobin (test code 8.2 g/dL 12.0-15.0 L : TESTED AT [facility] = 1856) [address] [facility], 770 30: Child Attendant/Techni kelle ID = [id number] for MARFIL, JOSE ARMANDO Lab Interpretation (test Abnormal code = 34112-6) [facility]-[id number] 22:43:06 Test Item Value Reference Range Interpretation Comments POC-Hematocrit (test code 24 % 36-45 L : = 1857) Child Attendant/Techni kelle ID = [id number] for MARFIL, JOSE ARMANDO Lab Interpretation (test Abnormal code = 60443-7) [facility]-[id number] 22:43:06 Test Item Value Reference Range Interpretation Comments POC-Hemoglobin (test code 8.2 g/dL 12.0-15.0 L : TESTED AT [facility] = 1856) [address] [place] [address], 770 30: Child Attendant/Techni kelle ID = [id number] for MARFIL, JOSE ARMANDO Lab Interpretation (test Abnormal code = 18343-1) [facility] CenterTeoktnYZKB-[id number] 22:43:06 Test Item Value Reference Range Interpretation Comments POC-Hematocrit (test code 24 % 36-45 L : = 1857) Child Attendant/Techni kelle ID = [id number] for MARFIL, JOSE ARMANDO Lab Interpretation (test Abnormal code = 32290-7) [facility]-[id number] 22:43:06 Test Item Value Reference Range Interpretation Comments POC-Hemoglobin (test code 8.2 g/dL 12.0-15.0 L : TESTED AT [facility] = 1856) [address] [place] [address], 770 30: Child Attendant/Techni kelle ID = [id number] for MARFIL, JOSE ARMANDO Lab Interpretation (test Abnormal code = 89126-8) [facility]-[id number] 22:43:06 Test Item Value Reference Range Interpretation Comments POC-Hematocrit (test code 24 % 36-45 L : = 1857) Child Attendant/Techni kelle ID = [id number] for MARFIL, JOSE ARMANDO Lab Interpretation (test Abnormal code = 92515-2) [facility]-[id number] 22:43:06 Test Item Value Reference Range Interpretation Comments POC-Hemoglobin (test code 8.2 g/dL 12.0-15.0 L : TESTED AT [facility] = 1856) [address] [place] [address], 770 30: Child Attendant/Techni kelle ID = [id number] for MARFIL, JOSE ARMANDO Lab Interpretation (test Abnormal code = 24642-4) [facility]-[id number] 22:43:06 Test Item Value Reference Range Interpretation Comments POC-Hematocrit (test code 24 % 36-45 L : = 1857) Child Attendant/Techni kelle ID = [id number] for MARFIL, JOSE ARMANDO Lab Interpretation (test Abnormal code = 32126-3) [facility]-[id number] 22:43:06 Test Item Value Reference Range Interpretation Comments POC-Hemoglobin (test code 8.2 g/dL 12.0-15.0 L : TESTED AT [facility] = 1856) [address] [place] [address], 770 30: Child Attendant/Techni kelle ID = [id number] for MARFIL, JOSE ARMANDO Lab Interpretation (test Abnormal code = 33159-2) [facility]-[id number] 22:43:06 Test Item Value Reference Range Interpretation Comments POC-Hematocrit (test code 24 % 36-45 L : = 1857) Child Attendant/Techni kelle ID = [id number] for MARFIL, JOSE ARMANDO Lab Interpretation (test Abnormal code = 57333-4) [facility]-[id number] 22:43:06 Test Item Value Reference Range Interpretation Comments POC-Hemoglobin (test code 8.2 g/dL 12.0-15.0 L : TESTED AT [facility] = 1856) [address] [place] [address], 770 30: Child Attendant/Techni kelle ID = [id number] for MARFIL, JOSE ARMANDO Lab Interpretation (test Abnormal code = 77555-7) [facility]-[id number] 22:43:06 Test Item Value Reference Range Interpretation Comments POC-Hematocrit (test code 24 % 36-45 L : = 1857) Child Attendant/Techni kelle ID = [id number] for MARFIL, JOSE ARMANDO Lab Interpretation (test Abnormal code = 61216-1) [facility]-[id number] 22:43:06 Test Item Value Reference Range Interpretation Comments POC-Hemoglobin (test code 8.2 g/dL 12.0-15.0 L : TESTED AT [facility] = 1856) [address] [place] [address], 770 30: Child Attendant/Techni kelle ID = [id number] for MARFIL, JOSE ARMANDO Lab Interpretation (test Abnormal code = 51061-5) [facility]-[id number] 22:43:06 Test Item Value Reference Range Interpretation Comments POC-Hematocrit (test code 24 % 36-45 L : = 1857) Child Attendant/Techni kelle ID = [id number] for MARFIL, JOSE ARMANDO Lab Interpretation (test Abnormal code = 94287-7) [facility]-[id number] 22:43:06 Test Item Value Reference Range Interpretation Comments POC-Hemoglobin (test code 8.2 g/dL 12.0-15.0 L : TESTED AT [facility] = 1856) [address] [place] [address], 770 30: Child Attendant/Techni kelle ID = [id number] for MARFIL, JOSE ARMANDO Lab Interpretation (test Abnormal code = 48513-3) [facility]-[id number] 22:43:06 Test Item Value Reference Range Interpretation Comments POC-Hematocrit (test code 24 % 36-45 L : = 1857) Child Attendant/Techni kelle ID = [id number] for MARFIL, JOSE ARMANDO Lab Interpretation (test Abnormal code = 70405-0) [facility]-[id number] 22:43:06 Test Item Value Reference Range Interpretation Comments POC-Hemoglobin (test code 8.2 g/dL 12.0-15.0 L : TESTED AT [facility] = 1856) [address] [place] [address], 770 30: Child Attendant/Techni kelle ID = [id number] for MARFIL, JOSE ARMANDO Lab Interpretation (test Abnormal code = 18138-6) [facility]-[id number] 22:43:06 Test Item Value Reference Range Interpretation Comments POC-Hematocrit (test code 24 % 36-45 L : = 1857) Child Attendant/Techni kelle ID = [id number] for MARFIL, JOSE ARMANDO Lab Interpretation (test Abnormal code = 65452-6) [facility]-[id number] 22:43:06 Test Item Value Reference Range Interpretation Comments POC-Hemoglobin (test code 8.2 g/dL 12.0-15.0 L : [facility] [address] [place] [address], 770 30: Child Attendant/Techni kelle ID = [id number] for MARFIL, JOSE ARMANDO Lab Interpretation (test Abnormal code = 25236-9) [facility]-[id number] 22:43:06 Test Item Value Reference Range Interpretation Comments POC-Hematocrit (test code 24 % 36-45 L : = 1857) Child Attendant/Techni kelle ID = [id number] for MARFIL, JOSE ARMANDO Lab Interpretation (test Abnormal code = 62241-3) [facility]-[id number] 22:43:06 Test Item Value Reference Range Interpretation Comments POC-Hemoglobin (test code 8.2 g/dL 12.0-15.0 L : [facility] [address] [place] [address], 770 30: Child Attendant/Techni kelle ID = [id number] for MARFIL, JOSE ARMANDO Lab Interpretation (test Abnormal code = 68882-9) [facility]-[id number] 22:43:06 Test Item Value Reference Range Interpretation Comments POC-Hematocrit (test code 24 % 36-45 L : = 1857) Child Attendant/Techni kelle ID = [id number] for MARFIL, JOSE ARMANDO Lab Interpretation (test Abnormal code = 88390-1) [facility]-[id number] 22:43:06 Test Item Value Reference Range Interpretation Comments POC-Hemoglobin (test code 8.2 g/dL 12.0-15.0 L : [facility] [address] [place] [address], 770 30: Child Attendant/Techni kelle ID = [id number] for MARFIL, JOSE ARMANDO Lab Interpretation (test Abnormal code = 19120-4) [facility]-[id number] 22:43:06 Test Item Value Reference Range Interpretation Comments POC-Hematocrit (test code 24 % 36-45 L : = 1857) Child Attendant/Techni kelle ID = [id number] for MARFIL, JOSE ARMANDO Lab Interpretation (test Abnormal code = 83489-3) [facility] CenterYrsxkyDLFD-[id number] 22:43:06 Test Item Value Reference Range Interpretation Comments POC-HEMOGLOBIN 8.2 g/dL 12.0-15.0 L : TESTED AT [facility] 67 (AKASH) (test code = YUDY Vaca [facility], 1856) [address]: Child Attendant/Techni kelle ID = [id number] for MARF IL, JOSE ARMANDO DJGY-[id number] 22:43:06 Test Item Value Reference Range Interpretation Comments POC-HEMATOCRIT 24 % 36-45 L : Child Attendant/Te chnician ID = (AKASH) (test code = 462661 for MARFIL, JOSE ARMANDO 1857) QAD-[id number] 22:43:05 Test Item Value Reference Range Interpretation Comments POC-Potassium (test code 3.4 meq/L 3.6-5.5 L : T ESTED AT [facility] = 1540) [address] [place] [address], 770 30: Child Attendant/Techni kelle ID = [id number] for MARFIL, JOSE ARMANDO Lab Interpretation (test Abnormal code = 80741-7) [facility]-[id number] 22:43:05 Test Item Value Reference Range Interpretation Comments POC-Sodium (test code = 137 meq/L 135-148 : TE STED AT [facility] 1542) [address] [place] [address], 770 30: Child Attendant/Techni kelle ID = [id number] for MARFIL, JOSE ARMANDO Lab Interpretation (test Normal code = 68821-3) [facility]-Irrxdrcrh3043-75-53 22:43:05 Test Item Value Reference Range Interpretation Comments POC-Potassium (test code 3.4 meq/L 3.6-5.5 L : T ESTED AT [facility] = 1540) [address] [place] [address], 770 30: Child Attendant/Techni kelle ID = [id number] for MARFIL, JOSE ARMANDO Lab Interpretation (test Abnormal code = 37368-3) [facility]-[id number] 22:43:05 Test Item Value Reference Range Interpretation Comments POC-Sodium (test code = 137 meq/L 135-148 : TE STED AT [facility] 1542) [address] [place] [address], 770 30: Child Attendant/Techni kelle ID = [id number] for MARFIL, JOSE ARMANDO Lab Interpretation (test Normal code = 46020-4) [facility]-Sjcsuuidb4360-58-51 22:43:05 Test Item Value Reference Range Interpretation Comments POC-Potassium (test code 3.4 meq/L 3.6-5.5 L : T ESTED AT [facility] = 1540) [address] [place] [address], 770 30: Child Attendant/Techni kelle ID = [id number] for MARFIL, JOSE ARMANDO Lab Interpretation (test Abnormal code = 35404-0) [facility]-[id number] 22:43:05 Test Item Value Reference Range Interpretation Comments POC-Sodium (test code = 137 meq/L 135-148 : TE STED AT [facility] 1542) [address] [place] [address], 770 30: Child Attendant/Techni kelle ID = [id number] for MARFIL, JOSE ARMANDO Lab Interpretation (test Normal code = 79272-5) [facility]-Wiwqytuoo9815-02-81 22:43:05 Test Item Value Reference Range Interpretation Comments POC-Potassium (test code 3.4 meq/L 3.6-5.5 L : T ESTED AT [facility] = 1540) [address] [place] [address], 770 30: Child Attendant/Techni kelle ID = [id number] for MARFIL, JOSE ARMANDO Lab Interpretation (test Abnormal code = 14947-6) [facility]-Czkmpb4480-42-62 22:43:05 Test Item Value Reference Range Interpretation Comments POC-Sodium (test code = 137 meq/L 135-148 : TE STED AT [facility] 1542) [address] [place] [place] [address], 770 30: Child Attendant/Techni kelle ID = [id number] for MARFIL, JOSE ARMANDO Lab Interpretation (test Normal code = 46775-7) [facility]-Ihbxvouam6279-35-79 22:43:05 Test Item Value Reference Range Interpretation Comments POC-Potassium (test code 3.4 meq/L 3.6-5.5 L : T ESTED AT [facility] = 1540) [address] [place] [address], 770 30: Child Attendant/Techni kelle ID = [id number] for MARFIL, JOSE ARMANDO Lab Interpretation (test Abnormal code = 58850-7) [facility]-[id number] 22:43:05 Test Item Value Reference Range Interpretation Comments POC-Sodium (test code = 137 meq/L 135-148 : TE STED AT [facility] 1542) [address] [place] [address], [facility] 30: Child Attendant/Techni kelle ID = [id number] for MARFIL, JOSE ARMANDO Lab Interpretation (test Normal code = 58500-5) [facility]-Qfdeuqyzq0251-45-24 22:43:05 Test Item Value Reference Range Interpretation Comments POC-Potassium (test code 3.4 meq/L 3.6-5.5 L : T ESTED AT [facility] = 1540) [address] [place] [address], [facility] 30: Child Attendant/Techni kelle ID = [id number] for MARFIL, JOSE ARMANDO Lab Interpretation (test Abnormal code = 31096-9) [facility]-Dbqxsk8333-32-69 22:43:05 Test Item Value Reference Range Interpretation Comments POC-Sodium (test code = 137 meq/L 135-148 : TE STED AT [facility] 1542) [address] [place] [address], [facility] 30: Child Attendant/Techni kelle ID = [id number] for MARFIL, JOSE ARMANDO Lab Interpretation (test Normal code = 32201-9) [facility]-Msejuxkri2074-06-09 22:43:05 Test Item Value Reference Range Interpretation Comments POC-Potassium (test code 3.4 meq/L 3.6-5.5 L : T ESTED AT [facility] = 1540) [address] [place] [address], 770 30: Child Attendant/Techni kelle ID = [id number] for MARFIL, JOSE ARMANDO Lab Interpretation (test Abnormal code = 22222-6) [facility]-Chshsf7668-83-26 22:43:05 Test Item Value Reference Range Interpretation Comments POC-Sodium (test code = 137 meq/L 135-148 : TE STED AT [facility] 1542) [address] [place] [address], 770 30: Child Attendant/Techni kelle ID = [id number] for MARFIL, JOSE ARMANDO Lab Interpretation (test Normal code = 23241-8) [facility]-Gqtylmcoo9643-19-54 22:43:05 Test Item Value Reference Range Interpretation Comments POC-Potassium (test code 3.4 meq/L 3.6-5.5 L : T ESTED AT [facility] = 1540) [address] [place] [address], 770 30: Child Attendant/Techni kelle ID = [id number] for MARFIL, JOSE ARMANDO Lab Interpretation (test Abnormal code = 67283-4) [facility]-Rxbxwk6342-36-57 22:43:05 Test Item Value Reference Range Interpretation Comments POC-Sodium (test code = 137 meq/L 135-148 : TE STED AT [facility] 1542) [address] [place] [address], 770 30: Child Attendant/Techni kelle ID = [id number] for MARFIL, JOSE ARMANDO Lab Interpretation (test Normal code = 70036-5) [facility]-Xzxdtpook1655-45-47 22:43:05 Test Item Value Reference Range Interpretation Comments POC-Potassium (test code 3.4 meq/L 3.6-5.5 L : T ESTED AT [facility] = 1540) [address] [place] [address], 770 30: Child Attendant/Techni kelle ID = [id number] for MARFIL, JOSE ARMANDO Lab Interpretation (test Abnormal code = 68100-5) [facility]-Yvauaa8492-89-59 22:43:05 Test Item Value Reference Range Interpretation Comments POC-Sodium (test code = 137 meq/L 135-148 : TE STED AT [facility] 1542) [address] [place] [address], 770 30: Child Attendant/Techni kelle ID = [id number] for MARFIL, JOSE ARMANDO Lab Interpretation (test Normal code = 19963-1) [facility]-Vcscznmyh6623-30-28 22:43:05 Test Item Value Reference Range Interpretation Comments POC-Potassium (test code 3.4 meq/L 3.6-5.5 L : T ESTED AT [facility] = 1540) [address] [place] [address], 770 30: Child Attendant/Techni kelle ID = [id number] for MARFIL, JOSE ARMANDO Lab Interpretation (test Abnormal code = 34648-9) [facility]-Mbrkiq2602-75-94 22:43:05 Test Item Value Reference Range Interpretation Comments POC-Sodium (test code = 137 meq/L 135-148 : TE STED AT [facility] 1542) [address] [place] [address], 770 30: Child Attendant/Techni kelle ID = [id number] for MARFIL, JOSE ARMANDO Lab Interpretation (test Normal code = 53398-9) [facility]-Dqxwkkxup9902-61-47 22:43:05 Test Item Value Reference Range Interpretation Comments POC-Potassium (test code 3.4 meq/L 3.6-5.5 L : T ESTED AT [facility] = 1540) [address] [place] [address], 770 30: Child Attendant/Techni kelle ID = [id number] for MARFIL, JOSE ARMANDO Lab Interpretation (test Abnormal code = 32648-4) [facility] 22:43:05 Test Item Value Reference Range Interpretation Comments POC-Sodium (test code = 137 meq/L 135-148 : TE STED AT [facility] 1542) [address] [place] [address], 770 30: Child Attendant/Techni kelle ID = [id number] for MARFIL, JOSE ARMANDO Lab Interpretation (test Normal code = 59679-2) [facility]-Vwmvgjrdd7281-64-24 22:43:05 Test Item Value Reference Range Interpretation Comments POC-Potassium (test code 3.4 meq/L 3.6-5.5 L : T ESTED AT [facility] = 1540) [address] [place] [address], 770 30: Child Attendant/Techni kelle ID = [id number] for MARFIL, JOSE ARMANDO Lab Interpretation (test Abnormal code = 08959-6) [facility]-Rsumhl3359-82-89 22:43:05 Test Item Value Reference Range Interpretation Comments POC-Sodium (test code = 137 meq/L 135-148 : TE STED AT [facility] 1542) [address] [place] [address], 770 30: Child Attendant/Techni kelle ID = [id number] for MARFIL, JOSE ARMANDO Lab Interpretation (test Normal code = 97467-8) [facility]-Uobcnvikv2857-27-43 22:43:05 Test Item Value Reference Range Interpretation Comments POC-Potassium (test code 3.4 meq/L 3.6-5.5 L : T ESTED AT [facility] = 1540) [address] [place] [address], [facility] 30: Child Attendant/Techni kelle ID = [id number] for MARFIL, JOSE ARMANDO Lab Interpretation (test Abnormal code = 89015-3) [facility]-Rgnyfb9939-99-55 22:43:05 Test Item Value Reference Range Interpretation Comments POC-Sodium (test code = 137 meq/L 135-148 : TE STED AT [facility] 1542) [address] [place] [address], [facility] 30: Child Attendant/Techni kelle ID = [id number] for MARFIL, JOSE ARMANDO Lab Interpretation (test Normal code = 00129-8) [facility]-Xgvrwojtl9231-15-90 22:43:05 Test Item Value Reference Range Interpretation Comments POC-Potassium (test code 3.4 meq/L 3.6-5.5 L : T ESTED AT [facility] = 1540) [address] [place] [address], 770 30: Child Attendant/Techni kelle ID = [id number] for MARFIL, JOSE ARMANDO Lab Interpretation (test Abnormal code = 57621-5) [facility]-Ezqigy7781-16-80 22:43:05 Test Item Value Reference Range Interpretation Comments POC-Sodium (test code = 137 meq/L 135-148 : TE STED AT [facility] 1542) [address] [place] [address], [facility] 30: Child Attendant/Techni kelle ID = [id number] for MARFIL, JOSE ARMANDO Lab Interpretation (test Normal code = 78553-8) [facility]-Cijrebysp3111-10-44 22:43:05 Test Item Value Reference Range Interpretation Comments POC-Potassium (test code 3.4 meq/L 3.6-5.5 L : T ESTED AT [facility] = 1540) [address] [place] [address], 770 30: Child Attendant/Techni kelle ID = [id number] for MARFIL, JOSE ARMANDO Lab Interpretation (test Abnormal code = 29168-1) [facility] CenterGhidku3512-22-45 22:43:05 Test Item Value Reference Range Interpretation Comments POC-Sodium (test code = 137 meq/L 135-148 : TE STED AT [facility] 1542) [address] [place] [address], 770 30: Child Attendant/Techni kelle ID = [id number] for MARFIL, JOSE ARMANDO Lab Interpretation (test Normal code = 40447-5) [facility] CenterRqniegyjq4193-28-91 22:43:05 Test Item Value Reference Range Interpretation Comments POC-Potassium (test code 3.4 meq/L 3.6-5.5 L : T ESTED AT [facility] = 1540) [address] [place] [address], 770 30: Child Attendant/Techni kelle ID = [id number] for MARFIL, JOSE ARMANDO Lab Interpretation (test Abnormal code = 96571-4) [facility] CenterNximkd7372-37-06 22:43:05 Test Item Value Reference Range Interpretation Comments POC-Sodium (test code = 137 meq/L 135-148 : TE STED AT [facility] 1542) [address] [place] [address], 770 30: Child Attendant/Techni kelle ID = [id number] for MARFIL, JOSE ARMANDO Lab Interpretation (test Normal code = 05546-8) [facility] CenterPzwnmjlrd0177-68-82 22:43:05 Test Item Value Reference Range Interpretation Comments POC-Potassium (test code 3.4 meq/L 3.6-5.5 L : T ESTED AT [facility] = 1540) [address] [place] [address], 770 30: Child Attendant/Techni kelle ID = [id number] for MARFIL, JOSE ARMANDO Lab Interpretation (test Abnormal code = 02587-8) [facility] CenterGyktpx7096-53-83 22:43:05 Test Item Value Reference Range Interpretation Comments POC-Sodium (test code = 137 meq/L 135-148 : TE STED AT [facility] 1542) [address] [place] [address], 770 30: Child Attendant/Techni kelle ID = [id number] for MARFIL, JOSE ARMANDO Lab Interpretation (test Normal code = 97461-4) [facility] 22:43:05 Test Item Value Reference Range Interpretation Comments POC-SODIUM (BEAKER) 137 meq/L 135-148 : TESTED AT [facility] 6720 (test code = 1542) [place], [address]: Child Attendant/Techni kelle ID = [id number] for MARF [place], JOSE ARMANDO VRKR-[id number] 22:43:05 Test Item Value Reference Range Interpretation Comments POC-POTASSIUM 3.4 meq/L 3.6-5.5 L : TESTED AT [facility] 6720 (BEAKER) (test code [place], = 1540) [address]: Child Attendant/Techni kelle ID = [id number] for MARF IL, JOSE ARMANDO POC-Blood gases, [id number] 22:42:59 Test Item Value Reference Range Interpretation Comments Temp. Celsius-POC (test 101.3 code = 1834) FIO2-POC (test code = 28 1835) pH, Venous-POC (test 7.484 7.320-7.420 H : TESTE D AT [facility] code = 1842) [address] [place], [address] PCO2, Venous-POC (test 39.4 See_Comment L If [...] mated message] code = 1844) The system bettermarks generated this result transmit levi reference range : 25.0 - 40.0 mm Hg. The reference r alba was not used to interpret this result as normal/abnormal . SO2, Venous-POC (test 87.0 % 40.0-70.0 H code = 1845) HCO3, Venous-POC (test 29.3 meq/L 21.0-29.0 H code = 1846) BE, Venous-POC (test 6.0 meq/L -2.0-3.0 H : code = 1847) Child Attendant/Techni kelle ID = [id number] for MARFIL, JOSE ARMANDO Lab Interpretation Abnormal (test code = 01204-1) [facility]-Blood gases, [id number] 22:42:59 Test Item Value Reference Range Interpretation Comments Temp. Celsius-POC (test 101.3 code = 1834) FIO2-POC (test code = 28 5) pH, Venous-POC (test 7.484 7.320-7.420 H : TESTE D AT [facility] code = 1842) [address] [place], [address] PCO2, Venous-POC (test 39.4 See_Comment L If [...] mated message] code = 1844) The system bettermarks generated this result transmit levi reference range : 25.0 - 40.0 mm Hg. The reference r alba was not used to interpret this result as normal/abnormal . SO2, Venous-POC (test 87.0 % 40.0-70.0 H code = 1845) HCO3, Venous-POC (test 29.3 meq/L 21.0-29.0 H code = 1846) BE, Venous-POC (test 6.0 meq/L -2.0-3.0 H : code = 1847) Child Attendant/Techni kelle ID = [id number] for JOSE ARMANDO CELIS Lab Interpretation Abnormal (test code = 29097-7) [facility]-Blood gases, [id number] 22:42:59 Test Item Value Reference Range Interpretation Comments Temp. Celsius-POC (test 101.3 code = 1834) FIO2-POC (test code = 1834) pH, Venous-POC (test 7.484 7.320-7.420 H : TESTE D AT [facility] code = 1842) [address] [place], [address] PCO2, Venous-POC (test 39.4 See_Comment L If [...] mated message] code = 1844) The system bettermarks generated this result transmit levi reference range : 25.0 - 40.0 mm Hg. The reference r alba was not used to interpret this result as normal/abnormal . SO2, Venous-POC (test 87.0 % 40.0-70.0 H code = 1845) HCO3, Venous-POC (test 29.3 meq/L 21.0-29.0 H code = 1846) BE, Venous-POC (test 6.0 meq/L -2.0-3.0 H : code = 1847) Child Attendant/Techni kelle ID = [id number] for HERBERT CELISE Lab Interpretation Abnormal (test code = 67589-7) [facility]-Blood gases, [id number] 22:42:59 Test Item Value Reference Range Interpretation Comments Temp. Celsius-POC (test 101.3 code = 1834) FIO2-POC (test code = 28 1835) pH, Venous-POC (test 7.484 7.320-7.420 H : TESTE D AT [facility] code = 1842) [address] [facility], [address] PCO2, Venous-POC (test 39.4 See_Comment L If [...] mated message] code = 1844) The system bettermarks generated this result transmit levi reference range : 25.0 - 40.0 mm Hg. The reference r alba was not used to interpret this result as normal/abnormal . SO2, Venous-POC (test 87.0 % 40.0-70.0 H code = 1845) HCO3, Venous-POC (test 29.3 meq/L 21.0-29.0 H code = 1846) BE, Venous-POC (test 6.0 meq/L -2.0-3.0 H : code = 1847) Child Attendant/Techni kelle ID = [id number] for MARFIL, JOSE ARMANDO Lab Interpretation Abnormal (test code = 13231-5) [facility]-Blood gases, [id number] 22:42:59 Test Item Value Reference Range Interpretation Comments Temp. Celsius-POC (test 101.3 code = 1834) FIO2-POC (test code = 28 1834) pH, Venous-POC (test 7.484 7.320-7.420 H : TESTE D AT [facility] code = 1842) [address] [place], [address] PCO2, Venous-POC (test 39.4 See_Comment L If pO 2 is >180, pCO2 code = 1843) may be positive ly biased [Automat ed message] The sy stem which generated this result transmit lvei reference range : 41.0 - 51.0 mm Hg. The reference r alba was not used to interpret this result as normal/abnormal . PO2, Venous-POC (test 53.0 See_Comment H [Auto mated message] code = 1844) The system bettermarks generated this result transmit levi reference range : 25.0 - 40.0 mm Hg. The reference r alba was not used to interpret this result as normal/abnormal . SO2, Venous-POC (test 87.0 % 40.0-70.0 H code = 1845) HCO3, Venous-POC (test 29.3 meq/L 21.0-29.0 H code = 1846) BE, Venous-POC (test 6.0 meq/L -2.0-3.0 H : code = 1847) Child Attendant/Techni kelle ID = [id number] for MARFIL, JOSE ARMANDO Lab Interpretation Abnormal (test code = 18781-2) [facility]-Blood gases, [id number] 22:42:59 Test Item Value Reference Range Interpretation Comments Temp. Celsius-POC (test 101.3 code = 1834) FIO2-POC (test code = 28 5) pH, Venous-POC (test 7.484 7.320-7.420 H : TESTE D AT [facility] code = 1842) [address] [place], [address] PCO2, Venous-POC (test 39.4 See_Comment L If [...] mated message] code = 1844) The system bettermarks generated this result transmit levi reference range : 25.0 - 40.0 mm Hg. The reference r alba was not used to interpret this result as normal/abnormal . SO2, Venous-POC (test 87.0 % 40.0-70.0 H code = 1845) HCO3, Venous-POC (test 29.3 meq/L 21.0-29.0 H code = 1846) BE, Venous-POC (test 6.0 meq/L -2.0-3.0 H : code = 1847) Child Attendant/Techni kelle ID = [id number] for VIMALJOSE ARMANDO Lab Interpretation Abnormal (test code = 67372-7) [facility]-Blood gases, [id number] 22:42:59 Test Item Value Reference Range Interpretation Comments Temp. Celsius-POC (test 101.3 code = 1834) FIO2-POC (test code = 28 1835) pH, Venous-POC (test 7.484 7.320-7.420 H : TESTE D AT [facility] code = 1842) [address] [place], [address] PCO2, Venous-POC (test 39.4 See_Comment L If [...] mated message] code = 1844) The system bettermarks generated this result transmit levi reference range : 25.0 - 40.0 mm Hg. The reference r alba was not used to interpret this result as normal/abnormal . SO2, Venous-POC (test 87.0 % 40.0-70.0 H code = 1845) HCO3, Venous-POC (test 29.3 meq/L 21.0-29.0 H code = 1846) BE, Venous-POC (test 6.0 meq/L -2.0-3.0 H : code = 1847) Child Attendant/Techni kelle ID = [id number] for MARFIL, JOSE ARMANDO Lab Interpretation Abnormal (test code = 28364-0) [facility]-Blood gases, [id number] 22:42:59 Test Item Value Reference Range Interpretation Comments Temp. Celsius-POC (test 101.3 code = 1834) FIO2-POC (test code = 28 1835) pH, Venous-POC (test 7.484 7.320-7.420 H : TESTE D AT [facility] code = 1842) [address] [place], [address] PCO2, Venous-POC (test 39.4 See_Comment L If [...] mated message] code = 1844) The system UGAMEic h generated this result transmit levi reference range : 25.0 - 40.0 mm Hg. The reference r alba was not used to interpret this result as normal/abnormal . SO2, Venous-POC (test 87.0 % 40.0-70.0 H code = 1845) HCO3, Venous-POC (test 29.3 meq/L 21.0-29.0 H code = 1846) BE, Venous-POC (test 6.0 meq/L -2.0-3.0 H : code = 1847) Child Attendant/Techni kelle ID = [id number] for MARFIL, JOSE ARMANDO Lab Interpretation Abnormal (test code = 91987-5) [facility]-Blood gases, [id number] 22:42:59 Test Item Value Reference Range Interpretation Comments Temp. Celsius-POC (test 101.3 code = 1834) FIO2-POC (test code = 28 1834) pH, Venous-POC (test 7.484 7.320-7.420 H : TESTE D AT [facility] code = 1842) [address] [place], [address] PCO2, Venous-POC (test 39.4 See_Comment L If [...] mated message] code = 1844) The system bettermarks generated this result transmit levi reference range : 25.0 - 40.0 mm Hg. The reference r alba was not used to interpret this result as normal/abnormal . SO2, Venous-POC (test 87.0 % 40.0-70.0 H code = 1845) HCO3, Venous-POC (test 29.3 meq/L 21.0-29.0 H code = 1846) BE, Venous-POC (test 6.0 meq/L -2.0-3.0 H : code = 1847) Child Attendant/Techni kelle ID = [id number] for VIMAL JOSE ARMANDO Lab Interpretation Abnormal (test code = 73780-8) [facility]-Blood gases, [id number] 22:42:59 Test Item Value Reference Range Interpretation Comments Temp. Celsius-POC (test 101.3 code = 1834) FIO2-POC (test code = 1834) pH, Venous-POC (test 7.484 7.320-7.420 H : TESTE D AT [facility] code = 1842) [address] [place], [address] PCO2, Venous-POC (test 39.4 See_Comment L If [...] mated message] code = 1844) The system bettermarks generated this result transmit levi reference range : 25.0 - 40.0 mm Hg. The reference r alba was not used to interpret this result as normal/abnormal . SO2, Venous-POC (test 87.0 % 40.0-70.0 H code = 1845) HCO3, Venous-POC (test 29.3 meq/L 21.0-29.0 H code = 1846) BE, Venous-POC (test 6.0 meq/L -2.0-3.0 H : code = 1847) Child Attendant/Techni kelle ID = [id number] for MARFIL, JOSE ARMANDO Lab Interpretation Abnormal (test code = 21922-8) [facility]-Blood gases, [id number] 22:42:59 Test Item Value Reference Range Interpretation Comments Temp. Celsius-POC (test 101.3 code = 1834) FIO2-POC (test code = 28 1835) pH, Venous-POC (test 7.484 7.320-7.420 H : TESTE D AT [facility] code = 1842) [address] [place], [address] PCO2, Venous-POC (test 39.4 See_Comment L If [...] mated message] code = 1844) The system bettermarks generated this result transmit levi reference range : 25.0 - 40.0 mm Hg. The reference r alba was not used to interpret this result as normal/abnormal . SO2, Venous-POC (test 87.0 % 40.0-70.0 H code = 1845) HCO3, Venous-POC (test 29.3 meq/L 21.0-29.0 H code = 1846) BE, Venous-POC (test 6.0 meq/L -2.0-3.0 H : code = 1847) Child Attendant/Techni kelle ID = [id number] for MARFIL, JOSE ARMANDO Lab Interpretation Abnormal (test code = 43871-6) [facility]-Blood gases, [id number] 22:42:59 Test Item Value Reference Range Interpretation Comments Temp. Celsius-POC (test 101.3 code = 1834) FIO2-POC (test code = 28 1834) pH, Venous-POC (test 7.484 7.320-7.420 H : TESTE D AT [facility] code = 1842) [address] [place], [address] PCO2, Venous-POC (test 39.4 See_Comment L If [...] mated message] code = 1844) The system bettermarks generated this result transmit levi reference range : 25.0 - 40.0 mm Hg. The reference r alba was not used to interpret this result as normal/abnormal . SO2, Venous-POC (test 87.0 % 40.0-70.0 H code = 1845) HCO3, Venous-POC (test 29.3 meq/L 21.0-29.0 H code = 1846) BE, Venous-POC (test 6.0 meq/L -2.0-3.0 H : code = 1847) Child Attendant/Techni kelle ID = [id number] for JOSE ARMANDO CELIS Lab Interpretation Abnormal (test code = 99881-4) [facility]-Blood gases, [id number] 22:42:59 Test Item Value Reference Range Interpretation Comments Temp. Celsius-POC (test 101.3 code = 1834) FIO2-POC (test code = 1834) pH, Venous-POC (test 7.484 7.320-7.420 H : TESTE D AT [facility] code = 1842) [address] [place], [address] PCO2, Venous-POC (test 39.4 See_Comment L If [...] mated message] code = 1844) The system bettermarks generated this result transmit levi reference range : 25.0 - 40.0 mm Hg. The reference r alba was not used to interpret this result as normal/abnormal . SO2, Venous-POC (test 87.0 % 40.0-70.0 H code = 1845) HCO3, Venous-POC (test 29.3 meq/L 21.0-29.0 H code = 1846) BE, Venous-POC (test 6.0 meq/L -2.0-3.0 H : code = 1847) Child Attendant/Techni kelle ID = [id number] for WILFRIDO CELISDIE Lab Interpretation Abnormal (test code = 02613-8) [facility]-Blood gases, [id number] 22:42:59 Test Item Value Reference Range Interpretation Comments Temp. Celsius-POC (test 101.3 code = 1834) FIO2-POC (test code = 28 1835) pH, Venous-POC (test 7.484 7.320-7.420 H : TESTE D AT [facility] code = 1842) [address] [facility], [address] PCO2, Venous-POC (test 39.4 See_Comment L If [...] mated message] code = 1844) The system bettermarks generated this result transmit levi reference range : 25.0 - 40.0 mm Hg. The reference r alba was not used to interpret this result as normal/abnormal . SO2, Venous-POC (test 87.0 % 40.0-70.0 H code = 1845) HCO3, Venous-POC (test 29.3 meq/L 21.0-29.0 H code = 1846) BE, Venous-POC (test 6.0 meq/L -2.0-3.0 H : code = 1847) Child Attendant/Techni kelle ID = [id number] for MARFIL, JOSE ARMANDO Lab Interpretation Abnormal (test code = 01152-8) [facility]-Blood gases, [id number] 22:42:59 Test Item Value Reference Range Interpretation Comments Temp. Celsius-POC (test 101.3 code = 1834) FIO2-POC (test code = 28 1834) pH, Venous-POC (test 7.484 7.320-7.420 H : TESTE D AT [facility] code = 1842) [address] [place], [address] PCO2, Venous-POC (test 39.4 See_Comment L If [...] mated message] code = 1844) The system bettermarks generated this result transmit levi reference range : 25.0 - 40.0 mm Hg. The reference r alba was not used to interpret this result as normal/abnormal . SO2, Venous-POC (test 87.0 % 40.0-70.0 H code = 1845) HCO3, Venous-POC (test 29.3 meq/L 21.0-29.0 H code = 1846) BE, Venous-POC (test 6.0 meq/L -2.0-3.0 H : code = 1847) Child Attendant/Techni kelle ID = [id number] for MARFIL, JOSE ARMANDO Lab Interpretation Abnormal (test code = 14084-7) [facility]-Blood gases, [id number] 22:42:59 Test Item Value Reference Range Interpretation Comments Temp. Celsius-POC (test 101.3 code = 1834) FIO2-POC (test code = 28 5) pH, Venous-POC (test 7.484 7.320-7.420 H : TESTE D AT [facility] code = 1842) [address] [place], [address] PCO2, Venous-POC (test 39.4 See_Comment L If [...] mated message] code = 1844) The system bettermarks generated this result transmit levi reference range : 25.0 - 40.0 mm Hg. The reference r alba was not used to interpret this result as normal/abnormal . SO2, Venous-POC (test 87.0 % 40.0-70.0 H code = 1845) HCO3, Venous-POC (test 29.3 meq/L 21.0-29.0 H code = 1846) BE, Venous-POC (test 6.0 meq/L -2.0-3.0 H : code = 1847) Child Attendant/Techni kelle ID = [id number] for JOSE ARMANDO CELIS Lab Interpretation Abnormal (test code = 83509-9) [facility]-Blood gases, [id number] 22:42:59 Test Item Value Reference Range Interpretation Comments Temp. Celsius-POC (test 101.3 code = 1834) FIO2-POC (test code = 28 1835) pH, Venous-POC (test 7.484 7.320-7.420 H : TESTE D AT [facility] code = 1842) [address] [place], [address] PCO2, Venous-POC (test 39.4 See_Comment L If [...] mated message] code = 1844) The system bettermarks generated this result transmit levi reference range : 25.0 - 40.0 mm Hg. The reference r alba was not used to interpret this result as normal/abnormal . SO2, Venous-POC (test 87.0 % 40.0-70.0 H code = 1845) HCO3, Venous-POC (test 29.3 meq/L 21.0-29.0 H code = 1846) BE, Venous-POC (test 6.0 meq/L -2.0-3.0 H : code = 1847) Child Attendant/Techni kelle ID = [id number] for MARFIL, JOSE ARMANDO Lab Interpretation Abnormal (test code = 40946-1) [facility] [id number] 22:42:59 Test Item Value Reference Range Interpretation Comments TEMP, CELSIUS-POC 101.3 (BEAKER) (test code = 1834) FIO2-POC (BEAKER) 28 (test code = 1835) PH, VENOUS-POC 7.484 7.320-7.420 H : TESTED AT [facility] 6720 (BEAKER) (test code [facility], = 1842) [address] PCO2, VENOUS-POC 39.4 mm Hg 41.0-51.0 L [...] BASE EXCESS, 6.0 meq/L -2.0-3.0 H : Child Attendant/Tech myate ID VENOUS-POC (BEAKER) = [id number] for MARFIL, (test code = 1847) JOSE ARMANDO LACTIC ACID, [id number] 22:23:56 Test Item Value Reference Range Interpretation Comments LACTATE BLOOD VENOUS 0.92 mmol/L 0.50-2.20 Specime n moderately (2) (BEAKER) (test hemolyzed code = 2872) Child Attendant ID - BSPOCT-GLUCOSE [id number] 21:35:23 Test Item Value Reference Range Interpretation Comments POC-GLUCOSE METER 125 mg/dL 70-110 H : TESTED A T [facility] 6720 (BEAKER) (test code = [facility], 1538) [address]: Child Attendant/Techni kelle ID = [id number] for UG GHADA HAMLIN POCT-GLUCOSE [id number] 17:05:43 Test Item Value Reference Range Interpretation Comments POC-GLUCOSE METER 224 mg/dL 70-110 H : TESTED A T [facility] 6720 (BEAKER) (test code = [facility], 1538) 450[address]: Child Attendant/Techni kelle ID = [id number] for Re yes, Maranda POCT-GLUCOSE [id number] 16:33:44 Test Item Value Reference Range Interpretation Comments POC-GLUCOSE METER 108 mg/dL 70-110 : TESTED A T [facility] 6720 (BEAKER) (test code = [facility], 1538) 369[address]: Child Attendant/Techni kelle ID = [id number] for Ag Herminia ball POCT-GLUCOSE [id number] 07:38:21 Test Item Value Reference Range Interpretation Comments POC-GLUCOSE METER 185 mg/dL 70-110 H : TESTED A T [facility] 6720 (BEAKER) (test code = [facility], 1538) 747[address]: Child Attendant/Techni kelle ID = [id number] for Re yes, Maranda BASIC METABOLIC [id number] 07:20:13 Test Item Value Reference Range Interpretation [...] S NOT APPLICABLE FOR DIALYSIS PATIEN TS. Child Attendant ID - HIEN [id number] 06:54:10 Test Item Value Reference Range Interpretation Comments PHOSPHORUS (BEAKER) (test code = 4.6 mg/dL 2.3-4.7 604) Child Attendant ID - HIEN [id number] 06:54:09 Test Item Value Reference Range Interpretation Comments MAGNESIUM (BEAKER) (test code = 2.2 mg/dL 1.6-2.6 627) Child Attendant ID - HIEN [facility] W/PLT COUNT & AUTO [id number] 04:53:46 Test Item Value Reference Range Interpretation [...] PERCENT (BEAKER) (test code = 2801) POCT-GLUCOSE [id number] 21:34:14 Test Item Value Reference Range Interpretation Comments POC-GLUCOSE METER 260 mg/dL 70-110 H : TESTED A T [facility] 6720 (BEAKER) (test code = [facility], 1538) 89288: Child Attendant/Techni kelle ID = [id number] for GHADA BECK POCT-GLUCOSE [id number] 16:27:30 Test Item Value Reference Range Interpretation Comments POC-GLUCOSE METER 170 mg/dL 70-110 H : TESTED A T [facility] 6720 (BEAKER) (test code = [facility], 1538) 41781: Child Attendant/Techni kelle ID = [id number] for Soledad Rivera 2D Echo W/Doppler(CW/PW/Color)2021-06-09 16:08:58Ejection FractionSLEH ECHO HEART[facility]2D Echo W/Doppler(CW/PW/Color)2021-06-09 16:08:58Ejection FractionSLEH ECHO HEARTLAB [facility]2D Echo W/Doppler(CW/PW/Color) 2021-06-09 16:08:58Ejection FractionSLEH ECHO HEARTLAB [facility]2D Echo W/Doppler(CW/PW/Color)2021-06-09 16:08:58Ejection FractionSLEH ECHO HEARTLAB [facility]2D Echo W/Doppler(CW/PW/Color)2021-06-09 16:08:58Ejection FractionSLEH ECHO HEARTLAB [facility]2D Echo W/Doppler(CW/PW/Color) 2021-06-09 16:08:58Ejection [facility]H [facility]Doppler(CW/PW/Color)2021-06-09 16:08:58Ejection FractionSLEH ECHO HEARTLAB [facility]2D Echo W/Doppler(CW/PW/Color)2021-06-09 16:08:58Ejection FractionSLEH ECHO HEARTLAB [facility]2D Echo W/Doppler(CW/PW/Color) 2021-06-09 16:08:58Ejection FractionSLEH ECHO HEARTLAB [facility]2D Echo W/Doppler(CW/PW/Color)2021-06-09 16:08:58Ejection FractionSLEH ECHO HEARTLAB [facility]2D Echo W/Doppler(CW/PW/Color)2021-06-09 16:08:58Ejection FractionSLEH ECHO HEARTLAB [facility]2D Echo W/Doppler(CW/PW/Color) 2021-06-09 16:08:58Ejection FractionSLEH ECHO [facility]ARTLAB [facility] W/Doppler(CW/PW/Color)2021-06-09 16:08:58Ejection FractionSLEH ECHO HEARTLAB [facility]2D Echo W/Doppler(CW/PW/Color)2021-06-09 16:08:58Ejection FractionSLEH ECHO HEARTLAB [facility]2D Echo W/Doppler(CW/PW/Color) 2021-06-09 16:08:58Ejection FractionSLEH ECHO HEARTLAB [facility]2D Echo W/Doppler(CW/PW/Color)2021-06-09 16:08:58Ejection FractionSLEH ECHO HEARTLAB SHANDRA [facility]2D Echo W/Doppler(CW/PW/Color)2021-06-09 16:08:58Ejection FractionSLEH ECHO HEARTLAB MKALIDA [facility] [id number] 16:06:54Ejection FractionSLEH ECHO HEARTLAB MKALIDA [facility] [id number] 16:06:54Ejection FractionSLEH ECHO HEARTLAB [facility]ANDRA [facility] [id number] 16:06:54Ejection FractionSLEH ECHO HEARTLAB [facility]DR[facility] smve2349-31-09 16:06:54Ejection FractionSLEH ECHO HEARTLAB [facility]ANDRA [facility] [id number] 16:06:54Ejection FractionSLEH ECHO HEARTLAB [facility]ANDRA [facility] [id number] 16:06:54Ejection FractionSLEH ECHO HEARTLAB [facility]ANDRA [facility] [id number] 16:06:54Ejection FractionSLEH ECHO HEARTLAB [facility]ANDRA [facility] [id number] 16:06:54Ejection FractionSLEH ECHO HEARTLAB DERRELLON [facility] [id number] 16:06:54Ejection FractionSLEH ECHO HEARTLAB SHANDRA [facility] [id number] 16:06:54Ejection FractionSLEH ECHO HEARTLAB [facility]RELLON [facility] [id number] 16:06:54Ejection FractionSLEH ECHO HEARTLAB MKALIDA [facility] [id number] 16:06:54Ejection FractionSLEH ECHO HEARTLAB SHANDRA [facility] [id number] 16:06:54Ejection FractionSLEH ECHO HEARTLAB MKCKESSON [facility] [id number] 16:06:54Ejection FractionSLEH ECHO HEARTLAB MKCKESSON [facility] sjhe0909-15-05 16:06:54Ejection FractionSLEH ECHO HEARTLAB [facility] [id number] 16:06:54Ejection FractionSLEH ECHO HEARTLAB MKCKESSON [facility] egmg1247-71-16 16:06:54Ejection FractionSLEH ECHO [facility] CenterPO[facility]GLUCOSE [id number] 06:23:12 Test Item Value Reference Range Interpretation Comments POC-GLUCOSE METER 250 mg/dL 70-110 H : TESTED A T [facility] 6720 (BEAKER) (test code = [place], 1538) [address]: Child Attendant/Techni kelle ID = [id number] for Lakisha gibbonshanh Tavia BASIC METABOLIC [id number] 04:37:07 Test Item Value Reference Range Interpretation [...] S NOT APPLICABLE FOR DIALYSIS PATIEN TS. Child Attendant ID - RAKAN [id number] 04:30:49 Test Item Value Reference Range Interpretation Comments PHOSPHORUS (BEAKER) (test code = 3.8 mg/dL 2.3-4.7 604) Child Attendant ID Bassam BLEDSOE [id number] 04:30:48 Test Item Value Reference Range Interpretation Comments MAGNESIUM (BEAKER) (test code = 2.0 mg/dL 1.6-2.6 627) Child Attendant ID Bassam BLEDSOE WCBC W/PLT COUNT & AUTO [id number] 03:53:11 Test Item Value Reference Range Interpretation [...] (BEAKER) (test code = 2801) Hepatitis panel, [id number] 23:49:54 Test Item Value Reference Range Interpretation Comments Hep A IgM (test code = Nonreactive Nonreactive 75235-6) Hep B C IgM (test code = Nonreactive Nonreactive 56395-8) Hepatitis C Ab (test code = Nonreactive Nonreactive 89763-7) Hepatitis B surface antigen Nonreactive Nonreactive (test code = 5195-3) BRANDI (test code = BRANDI) Child Attendant ID - DB Lab Interpretation (test Normal code = 91492-4) [facility] [id number] 23:49:54 Test Item Value Reference Range Interpretation Comments Hep A IgM (test code = Nonreactive Nonreactive 85906-0) Hep B C IgM (test code = Nonreactive Nonreactive 21962-8) Hepatitis C Ab (test code = Nonreactive Nonreactive 56912-0) Hepatitis B surface antigen Nonreactive Nonreactive (test code = 5195-3) BRANDI (test code = BRANDI) Child Attendant ID - DB Lab Interpretation (test Normal code = 70440-7) [facility], [id number] 23:49:54 Test Item Value Reference Range Interpretation Comments Hep A IgM (test code = Nonreactive Nonreactive 76896-2) Hep B C IgM (test code = Nonreactive Nonreactive 20402-9) Hepatitis C Ab (test code = Nonreactive Nonreactive 60303-3) Hepatitis B surface antigen Nonreactive Nonreactive (test code = 5195-3) BRANDI (test code = BRANDI) Child Attendant ID - DB Lab Interpretation (test Normal code = 83820-5) [facility] panel, [id number] 23:49:54 Test Item Value Reference Range Interpretation Comments Hep A IgM (test code = Nonreactive Nonreactive 63370-6) Hep B C IgM (test code = Nonreactive Nonreactive 95896-4) Hepatitis C Ab (test code = Nonreactive Nonreactive 61460-5) Hepatitis B surface antigen Nonreactive Nonreactive (test code = 5195-3) BRANDI (test code = BRANDI) Child Attendant ID - DB Lab Interpretation (test Normal code = 76623-9) [facility] panel, [id number] 23:49:54 Test Item Value Reference Range Interpretation Comments Hep A IgM (test code = Nonreactive Nonreactive 93775-7) Hep B C IgM (test code = Nonreactive Nonreactive 47663-3) Hepatitis C Ab (test code = Nonreactive Nonreactive 64614-9) Hepatitis B surface antigen Nonreactive Nonreactive (test code = 5195-3) BRANDI (test code = BRANDI) Child Attendant ID - DB Lab Interpretation (test Normal code = 95036-3) [facility] panel, [id number] 23:49:54 Test Item Value Reference Range Interpretation Comments Hep A IgM (test code = Nonreactive Nonreactive 10800-5) Hep B C IgM (test code = Nonreactive Nonreactive 86732-3) Hepatitis C Ab (test code = Nonreactive Nonreactive 87744-5) Hepatitis B surface antigen Nonreactive Nonreactive (test code = 5195-3) BRANDI (test code = BRANDI) Child Attendant ID - DB Lab Interpretation (test Normal code = 70492-3) [facility] panel, [id number] 23:49:54 Test Item Value Reference Range Interpretation Comments Hep A IgM (test code = Nonreactive Nonreactive 60015-6) Hep B C IgM (test code = Nonreactive Nonreactive 63924-8) Hepatitis C Ab (test code = Nonreactive Nonreactive 44447-5) Hepatitis B surface antigen Nonreactive Nonreactive (test code = 5195-3) BRANDI (test code = BRANDI) Child Attendant ID - DB Lab Interpretation (test Normal code = 79073-3) [facility] panel, [id number] 23:49:54 Test Item Value Reference Range Interpretation Comments Hep A IgM (test code = Nonreactive Nonreactive 81801-3) Hep B C IgM (test code = Nonreactive Nonreactive 25348-3) Hepatitis C Ab (test code = Nonreactive Nonreactive 29419-8) Hepatitis B surface antigen Nonreactive Nonreactive (test code = 5195-3) BRANDI (test code = BRANDI) Child Attendant ID - DB Lab Interpretation (test Normal code = 45126-3) [facility] panel, [id number] 23:49:54 Test Item Value Reference Range Interpretation Comments Hep A IgM (test code = Nonreactive Nonreactive 07848-1) Hep B C IgM (test code = Nonreactive Nonreactive 83901-4) Hepatitis C Ab (test code = Nonreactive Nonreactive 33553-9) Hepatitis B surface antigen Nonreactive Nonreactive (test code = 5195-3) BRANDI (test code = BRANDI) Child Attendant ID - DB Lab Interpretation (test Normal code = 68525-6) [facility] panel, [id number] 23:49:54 Test Item Value Reference Range Interpretation Comments Hep A IgM (test code = Nonreactive Nonreactive 61781-1) Hep B C IgM (test code = Nonreactive Nonreactive 81935-0) Hepatitis C Ab (test code = Nonreactive Nonreactive 12858-9) Hepatitis B surface antigen Nonreactive Nonreactive (test code = 5195-3) BRANDI (test code = BRANDI) Child Attendant ID - DB Lab Interpretation (test Normal code = 05008-5) [facility] panel, [id number] 23:49:54 Test Item Value Reference Range Interpretation Comments Hep A IgM (test code = Nonreactive Nonreactive 51418-4) Hep B C IgM (test code = Nonreactive Nonreactive 24837-7) Hepatitis C Ab (test code = Nonreactive Nonreactive 17625-8) Hepatitis B surface antigen Nonreactive Nonreactive (test code = 5195-3) BRANDI (test code = BRANDI) Child Attendant ID - DB Lab Interpretation (test Normal code = 25996-3) [facility] panel, [id number] 23:49:54 Test Item Value Reference Range Interpretation Comments Hep A IgM (test code = Nonreactive Nonreactive 14022-2) Hep B C IgM (test code = Nonreactive Nonreactive 17851-5) Hepatitis C Ab (test code = Nonreactive Nonreactive 09965-1) Hepatitis B surface antigen Nonreactive Nonreactive (test code = 5195-3) BRANDI (test code = BRANDI) Child Attendant ID - DB Lab Interpretation (test Normal code = 74846-3) [facility] panel, [id number] 23:49:54 Test Item Value Reference Range Interpretation Comments Hep A IgM (test code = Nonreactive Nonreactive 50473-9) Hep B C IgM (test code = Nonreactive Nonreactive 61886-0) Hepatitis C Ab (test code = Nonreactive Nonreactive 90929-0) Hepatitis B surface antigen Nonreactive Nonreactive (test code = 5195-3) BRANDI (test code = BRANDI) Child Attendant ID - DB Lab Interpretation (test Normal code = 23258-8) [facility] panel, [id number] 23:49:54 Test Item Value Reference Range Interpretation Comments Hep A IgM (test code = Nonreactive Nonreactive 11125-2) Hep B C IgM (test code = Nonreactive Nonreactive 98580-3) Hepatitis C Ab (test code = Nonreactive Nonreactive 17177-7) Hepatitis B surface antigen Nonreactive Nonreactive (test code = 5195-3) BRANDI (test code = BRANDI) Child Attendant ID - DB Lab Interpretation (test Normal code = 30245-0) [facility] panel, [id number] 23:49:54 Test Item Value Reference Range Interpretation Comments Hep A IgM (test code = Nonreactive Nonreactive 03219-6) Hep B C IgM (test code = Nonreactive Nonreactive 79825-0) Hepatitis C Ab (test code = Nonreactive Nonreactive 17633-6) Hepatitis B surface antigen Nonreactive Nonreactive (test code = 5195-3) BRANDI (test code = BRADNI) Child Attendant ID - DB Lab Interpretation (test Normal code = 88379-8) [facility] panel, [id number] 23:49:54 Test Item Value Reference Range Interpretation Comments Hep A IgM (test code = Nonreactive Nonreactive 62477-7) Hep B C IgM (test code = Nonreactive Nonreactive 11350-5) Hepatitis C Ab (test code = Nonreactive Nonreactive 60969-2) Hepatitis B surface antigen Nonreactive Nonreactive (test code = 5195-3) BRANDI (test code = BRANDI) Child Attendant ID - DB Lab Interpretation (test Normal code = 09937-9) [facility], [id number] 23:49:54 Test Item Value Reference Range Interpretation Comments Hep A IgM (test code = Nonreactive Nonreactive 95451-1) Hep B C IgM (test code = Nonreactive Nonreactive 39669-1) Hepatitis C Ab (test code = Nonreactive Nonreactive 41775-6) Hepatitis B surface antigen Nonreactive Nonreactive (test code = 5195-3) BRANDI (test code = BRANDI) Child Attendant ID - DB Lab Interpretation (test Normal code = 42775-6) [facility] PANEL, [id number] 23:49:54 Test Item Value Reference Range Interpretation Comments HEPATITIS A IGM ANTIBODY (BEAKER) Nonreactive Nonreactive (test code = 498) HEPATITIS B CORE IGM ANTIBODY Nonreactive Nonreactive (BEAKER) (test code = 645) HEPATITIS C ANTIBODY (BEAKER) Nonreactive Nonreactive (test code = 367) HEPATITIS B SURFACE ANTIGEN (2) Nonreactive Nonreactive (BEAKER) (test code = 2585) Child Attendant ID - DBPOCT-GLUCOSE [id number] 21:22:04 Test Item Value Reference Range Interpretation Comments POC-GLUCOSE METER 193 mg/dL 70-110 H : TESTED A T [facility] 6720 (BEAKER) (test code = [facility], 1538) [address]: Child Attendant/Techni kelle ID = [id number] for Lakisha edwigehanh Tavia Hepatitis B surface [id number] 13:29:36 Test Item Value Reference Range Interpretation Comments Hepatitis B surface Nonreactive Nonreactive antigen (test code = 5195-3) BRANDI (test code = BRANDI) Specimen is considered negative for HBsAg. Lab Interpretation (test Normal code = 80438-4) [facility] B surface [id number] 13:29:36 Test Item Value Reference Range Interpretation Comments Hepatitis B surface Nonreactive Nonreactive antigen (test code = 5195-3) BRANDI (test code = BRANDI) Specimen is considered negative for HBsAg. Lab Interpretation (test Normal code = 72567-4) [facility] B surface ofgutaq1957 13:29:36 Test Item Value Reference Range Interpretation Comments Hepatitis B surface Nonreactive Nonreactive antigen (test code = 5195-3) BRANDI (test code = BRANDI) Specimen is considered negative for HBsAg. Lab Interpretation (test Normal code = 17085-7) [facility] B surface [id number] 13:29:36 Test Item Value Reference Range Interpretation Comments Hepatitis B surface Nonreactive Nonreactive antigen (test code = 5195-3) BRANDI (test code = BRANDI) Specimen is considered negative for HBsAg. Lab Interpretation (test Normal code = 03154-6) [facility] B surface [id number] 13:29:36 Test Item Value Reference Range Interpretation Comments Hepatitis B surface Nonreactive Nonreactive antigen (test code = 5195-3) BRANDI (test code = BRANDI) Specimen is considered negative for HBsAg. Lab Interpretation (test Normal code = 65735-5) [facility] B surface [id number] 13:29:36 Test Item Value Reference Range Interpretation Comments Hepatitis B surface Nonreactive Nonreactive antigen (test code = 5195-3) BRANDI (test code = BRANDI) Specimen is considered negative for HBsAg. Lab Interpretation (test Normal code = 45694-4) [facility] B surface [id number] 13:29:36 Test Item Value Reference Range Interpretation Comments Hepatitis B surface Nonreactive Nonreactive antigen (test code = 5195-3) BRANDI (test code = BRANDI) Specimen is considered negative for HBsAg. Lab Interpretation (test Normal code = 61526-3) [facility] ydtwwmf2384-78-11 13:29:36 Test Item Value Reference Range Interpretation Comments Hepatitis B surface Nonreactive Nonreactive antigen (test code = 5195-3) BRANDI (test code = BRANDI) Specimen is considered negative for HBsAg. Lab Interpretation (test Normal code = 83796-0) [facility] surface [id number] 13:29:36 Test Item Value Reference Range Interpretation Comments Hepatitis B surface Nonreactive Nonreactive antigen (test code = 5195-3) BRANDI (test code = BRANDI) Specimen is considered negative for HBsAg. Lab Interpretation (test Normal code = 78389-2) [facility] [id number] 13:29:36 Test Item Value Reference Range Interpretation Comments Hepatitis B surface Nonreactive Nonreactive antigen (test code = 5195-3) BRANDI (test code = BRANDI) Specimen is considered negative for HBsAg. Lab Interpretation (test Normal code = 46343-3) [facility] B surface [id number] 13:29:36 Test Item Value Reference Range Interpretation Comments Hepatitis B surface Nonreactive Nonreactive antigen (test code = 5195-3) BRANDI (test code = BRANDI) Specimen is considered negative for HBsAg. Lab Interpretation (test Normal code = 89410-5) [facility] B surface [id number] 13:29:36 Test Item Value Reference Range Interpretation Comments Hepatitis B surface Nonreactive Nonreactive antigen (test code = 5195-3) BRANDI (test code = BRANDI) Specimen is considered negative for HBsAg. Lab Interpretation (test Normal code = 63148-1) [facility] B surface [id number] 13:29:36 Test Item Value Reference Range Interpretation Comments Hepatitis B surface Nonreactive Nonreactive antigen (test code = 5195-3) BRANDI (test code = BRANDI) Specimen is considered negative for HBsAg. Lab Interpretation (test Normal code = 94865-3) [facility] kwailck0922-14-10 13:29:36 Test Item Value Reference Range Interpretation Comments Hepatitis B surface Nonreactive Nonreactive antigen (test code = 5195-3) BRANDI (test code = BRANDI) Specimen is considered negative for HBsAg. Lab Interpretation (test Normal code = 53960-6) [facility] [id number] 13:29:36 Test Item Value Reference Range Interpretation Comments Hepatitis B surface Nonreactive Nonreactive antigen (test code = 5195-3) BRANDI (test code = BRANDI) Specimen is considered negative for HBsAg. Lab Interpretation (test Normal code = 09186-9) [facility] zzhgdde5864-09-50 13:29:36 Test Item Value Reference Range Interpretation Comments Hepatitis B surface Nonreactive Nonreactive antigen (test code = 5195-3) BRANDI (test code = BRANDI) Specimen is considered negative for HBsAg. Lab Interpretation (test Normal code = 43476-2) [facility] pnbgaab2607-11-81 13:29:36 Test Item Value Reference Range Interpretation Comments Hepatitis B surface Nonreactive Nonreactive antigen (test code = 5195-3) BRANDI (test code = BRANDI) Specimen is considered negative for HBsAg. Lab Interpretation (test Normal code = 48608-0) [facility]ATINEW [facility] B SURFACE [id number] 13:29:36 Test Item Value Reference Range Interpretation Comments HEPATITIS B SURFACE ANTIGEN (2) Nonreactive Nonreactive (BEAKER) (test code = 2585) Specimen is considered negative for HBsAg.U/S, ABDOMINAL, [id number] 13:10:00Abdomen limited area? Add comment if clarification is needed.- >LiverReason for exam:->hepatic nodularity reported [facility] : 1955 Sex: [...] Webb MDReport Verified Date/Time: 06/08/2021 13:10:45 SARS-COV2/RT-PCR ([facility])2021-06-08 12:35:29 Test Item Value Reference Range Interpretation Comments SARS-COV2/RT-PCR (test Negative Not Detected, Negative, code = 3537332) See external report for linked test SARS-COV-2 PERFORMING LAB [facility] (test code = 5786732) Negative result for this test determines that [...] of the Act.Fact Sheet for Healthcare Prov iders:https://www.[employer]/sites/default/files/product/documents/Fact_Sheet_HC _Tvmybpfly_Ijei_SDIR-HcM-8.pdfFact Sheet for Healthcare Patients:https://www.[employer]/sites/default/files/product/docume nts/Gdlh_Nftng_Oimgaaix_Zkxn_EKNF-BgC-8.pdfPerforming Laboratory:[facility], [place] [address]Eiaiqkf D, 25-Hydroxy 2021-06-08 11:10:06 Test Item Value Reference Range Interpretation Comments Vitamin D 25-Hydroxy 16.7 ng/mL 6.6-49.9 (test code = 2764) BRANDI (test code = BRANDI) Effective 01/12/2017: Reference Range ChangeNew: 6.6-49.9 ng/mL Previous: 13.0-47.8 ng/mL Recommended Vitamin D Target Range: 30.0-40.0 ng/mLOperator ID - DB Lab Interpretation (test Normal code = 96278-3) [facility], 88-[id number] 11:10:06 Test Item Value Reference Range Interpretation Comments Vitamin D 25-Hydroxy 16.7 ng/mL 6.6-49.9 (test code = 2764) BRANDI (test code = BRANDI) Effective 01/12/2017: Reference Range ChangeNew: 6.6-49.9 ng/mL Previous: 13.0-47.8 ng/mL Recommended Vitamin D Target Range: 30.0-40.0 ng/mLOperator ID - DB Lab Interpretation (test Normal code = 58888-2) [facility], 56-[id number] 11:10:06 Test Item Value Reference Range Interpretation Comments Vitamin D 25-Hydroxy 16.7 ng/mL 6.6-49.9 (test code = 2764) BRANDI (test code = BRANDI) Effective 01/12/2017: Reference Range ChangeNew: 6.6-49.9 ng/mL Previous: 13.0-47.8 ng/mL Recommended Vitamin D Target Range: 30.0-40.0 ng/mLOperator ID - DB Lab Interpretation (test Normal code = 62471-1) [facility], 24-[id number] 11:10:06 Test Item Value Reference Range Interpretation Comments Vitamin D 25-Hydroxy 16.7 ng/mL 6.6-49.9 (test code = 2764) BRANDI (test code = BRANDI) Effective 01/12/2017: Reference Range ChangeNew: 6.6-49.9 ng/mL Previous: 13.0-47.8 ng/mL Recommended Vitamin D Target Range: 30.0-40.0 ng/mLOperator ID - DB Lab Interpretation (test Normal code = 49834-6) [facility], 01-[id number] 11:10:06 Test Item Value Reference Range Interpretation Comments Vitamin D 25-Hydroxy 16.7 ng/mL 6.6-49.9 (test code = 2764) BRANDI (test code = BRANDI) Effective 01/12/2017: Reference Range ChangeNew: 6.6-49.9 ng/mL Previous: 13.0-47.8 ng/mL Recommended Vitamin D Target Range: 30.0-40.0 ng/mLOperator ID - DB Lab Interpretation (test Normal code = 49067-2) [facility], 48-[id number] 11:10:06 Test Item Value Reference Range Interpretation Comments Vitamin D 25-Hydroxy 16.7 ng/mL 6.6-49.9 (test code = 2764) BRANDI (test code = BRANDI) Effective 01/12/2017: Reference Range ChangeNew: 6.6-49.9 ng/mL Previous: 13.0-47.8 ng/mL Recommended Vitamin D Target Range: 30.0-40.0 ng/mLOperator ID - DB Lab Interpretation (test Normal code = 41572-4) [facility], 85-[id number] 11:10:06 Test Item Value Reference Range Interpretation Comments Vitamin D 25-Hydroxy 16.7 ng/mL 6.6-49.9 (test code = 2764) BRANDI (test code = BRANDI) Effective 01/12/2017: Reference Range ChangeNew: 6.6-49.9 ng/mL Previous: 13.0-47.8 ng/mL Recommended Vitamin D Target Range: 30.0-40.0 ng/mLOperator ID - DB Lab Interpretation (test Normal code = 97988-3) [facility], 31-[id number] 11:10:06 Test Item Value Reference Range Interpretation Comments Vitamin D 25-Hydroxy 16.7 ng/mL 6.6-49.9 (test code = 2764) BRANDI (test code = BRANDI) Effective 01/12/2017: Reference Range ChangeNew: 6.6-49.9 ng/mL Previous: 13.0-47.8 ng/mL Recommended Vitamin D Target Range: 30.0-40.0 ng/mLOperator ID - DB Lab Interpretation (test Normal code = 29320-0) [facility], 71-Iuadlno1571-92-07 11:10:06 Test Item Value Reference Range Interpretation Comments Vitamin D 25-Hydroxy 16.7 ng/mL 6.6-49.9 (test code = 2764) BRANDI (test code = BRANDI) Effective 01/12/2017: Reference Range ChangeNew: 6.6-49.9 ng/mL Previous: 13.0-47.8 ng/mL Recommended Vitamin D Target Range: 30.0-40.0 ng/mLOperator ID - DB Lab Interpretation (test Normal code = 12273-2) [facility], 01-Djexnsh4851-60-07 11:10:06 Test Item Value Reference Range Interpretation Comments Vitamin D 25-Hydroxy 16.7 ng/mL 6.6-49.9 (test code = 2764) BRANDI (test code = BRANDI) Effective 01/12/2017: Reference Range ChangeNew: 6.6-49.9 ng/mL Previous: 13.0-47.8 ng/mL Recommended Vitamin D Target Range: 30.0-40.0 ng/mLOperator ID - DB Lab Interpretation (test Normal code = 22282-2) [facility], 75-[id number] 11:10:06 Test Item Value Reference Range Interpretation Comments Vitamin D 25-Hydroxy 16.7 ng/mL 6.6-49.9 (test code = 2764) BRANDI (test code = BRANDI) Effective 01/12/2017: Reference Range ChangeNew: 6.6-49.9 ng/mL Previous: 13.0-47.8 ng/mL Recommended Vitamin D Target Range: 30.0-40.0 ng/mLOperator ID - DB Lab Interpretation (test Normal code = 32452-4) [facility], 59-Cmqckmp5860-40-07 11:10:06 Test Item Value Reference Range Interpretation Comments Vitamin D 25-Hydroxy 16.7 ng/mL 6.6-49.9 (test code = 2764) BRANDI (test code = BRANDI) Effective 01/12/2017: Reference Range ChangeNew: 6.6-49.9 ng/mL Previous: 13.0-47.8 ng/mL Recommended Vitamin D Target Range: 30.0-40.0 ng/mLOperator ID - DB Lab Interpretation (test Normal code = 26340-2) [facility], 85-Rqadbhw4333-13-07 11:10:06 Test Item Value Reference Range Interpretation Comments Vitamin D 25-Hydroxy 16.7 ng/mL 6.6-49.9 (test code = 1989-3) BRANDI (test code = BRANDI) Effective 01/12/2017: Reference Range ChangeNew: 6.6-49.9 ng/mL Previous: 13.0-47.8 ng/mL Recommended Vitamin D Target Range: 30.0-40.0 ng/mLOperator ID - DB Lab Interpretation (test Normal code = 23407-6) [facility], 12-Wephbmf1451-76-07 11:10:06 Test Item Value Reference Range Interpretation Comments Vitamin D 25-Hydroxy 16.7 ng/mL 6.6-49.9 (test code = 1988-) BRANDI (test code = BRANDI) Effective 01/12/2017: Reference Range ChangeNew: 6.6-49.9 ng/mL Previous: 13.0-47.8 ng/mL Recommended Vitamin D Target Range: 30.0-40.0 ng/mLOperator ID - DB Lab Interpretation (test Normal code = 27355-8) [facility], 77-Zdsjror1473-29-07 11:10:06 Test Item Value Reference Range Interpretation Comments Vitamin D 25-Hydroxy 16.7 ng/mL 6.6-49.9 (test code = 1988-) BRANDI (test code = BRANDI) Effective 01/12/2017: Reference Range ChangeNew: 6.6-49.9 ng/mL Previous: 13.0-47.8 ng/mL Recommended Vitamin D Target Range: 30.0-40.0 ng/mLOperator ID - DB Lab Interpretation (test Normal code = 96740-2) [facility], 06-Mblmhcr3559-85-07 11:10:06 Test Item Value Reference Range Interpretation Comments Vitamin D 25-Hydroxy 16.7 ng/mL 6.6-49.9 (test code = 2764) BRANDI (test code = BRANDI) Effective 01/12/2017: Reference Range ChangeNew: 6.6-49.9 ng/mL Previous: 13.0-47.8 ng/mL Recommended Vitamin D Target Range: 30.0-40.0 ng/mLOperator ID - DB Lab Interpretation (test Normal code = 75988-5) [facility], 90-Dkzjxla6315-32-07 11:10:06 Test Item Value Reference Range Interpretation Comments Vitamin D 25-Hydroxy 16.7 ng/mL 6.6-49.9 (test code = 2764) BRANDI (test code = BRANDI) Effective 01/12/2017: Reference Range ChangeNew: 6.6-49.9 ng/mL Previous: 13.0-47.8 ng/mL Recommended Vitamin D Target Range: 30.0-40.0 ng/mLOperator ID - DB Lab Interpretation (test Normal code = 22620-5) [facility], 56-[id number] 11:10:06 Test Item Value Reference Range Interpretation Comments VITAMIN D 25-OH (BEAKER) (test 16.7 ng/mL 6.6-49.9 code = 2764) Effective 01/12/2017: Reference Range ChangeNew: 6.6-49.9 ng/mL Previous: 13.0- 47.8 ng/mLRecommendedVitamin D Target Range: 30.0-40.0 ng/mLOperator ID - DBPTH, [id number] 11:05:08 Test Item Value Reference Range Interpretation Comments PTH (test code = 2731-8) 449.7 pg/mL 8.5-72.5 H BRANDI (test code = BRANDI) Child Attendant ID - ADMIN Lab Interpretation (test Abnormal code = 27361-9) [facility], [id number] 11:05:08 Test Item Value Reference Range Interpretation Comments PTH (test code = 2731-8) 449.7 pg/mL 8.5-72.5 H BRANDI (test code = BRANDI) Child Attendant ID - ADMIN Lab Interpretation (test Abnormal code = 89123-3) [facility], [id number] 11:05:08 Test Item Value Reference Range Interpretation Comments PTH (test code = 2731-8) 449.7 pg/mL 8.5-72.5 H BRANDI (test code = BRANDI) Child Attendant ID - ADMIN Lab Interpretation (test Abnormal code = 01373-7) [facility], [id number] 11:05:08 Test Item Value Reference Range Interpretation Comments PTH (test code = 2731-8) 449.7 pg/mL 8.5-72.5 H BRANDI (test code = BRANDI) Child Attendant ID - ADMIN Lab Interpretation (test Abnormal code = 71388-0) [facility], [id number] 11:05:08 Test Item Value Reference Range Interpretation Comments PTH (test code = 2731-8) 449.7 pg/mL 8.5-72.5 H BRANDI (test code = BRANDI) Child Attendant ID - ADMIN Lab Interpretation (test Abnormal code = 54652-0) [facility], [id number] 11:05:08 Test Item Value Reference Range Interpretation Comments PTH (test code = 2731-8) 449.7 pg/mL 8.5-72.5 H BRANDI (test code = BRANDI) Child Attendant ID - ADMIN Lab Interpretation (test Abnormal code = 48139-9) [facility], [id number] 11:05:08 Test Item Value Reference Range Interpretation Comments PTH (test code = 2731-8) 449.7 pg/mL 8.5-72.5 H BRANDI (test code = BRANDI) Child Attendant ID - ADMIN Lab Interpretation (test Abnormal code = 07091-2) [facility], [id number] 11:05:08 Test Item Value Reference Range Interpretation Comments PTH (test code = 2731-8) 449.7 pg/mL 8.5-72.5 H BRANDI (test code = BRANDI) Child Attendant ID - ADMIN Lab Interpretation (test Abnormal code = 60795-8) [facility], [id number] 11:05:08 Test Item Value Reference Range Interpretation Comments PTH (test code = 2731-8) 449.7 pg/mL 8.5-72.5 H BRANDI (test code = BRANDI) Child Attendant ID - ADMIN Lab Interpretation (test Abnormal code = 67220-3) [facility], [id number] 11:05:08 Test Item Value Reference Range Interpretation Comments PTH (test code = 2731-8) 449.7 pg/mL 8.5-72.5 H BRANDI (test code = BRANDI) Child Attendant ID - ADMIN Lab Interpretation (test Abnormal code = 29373-8) [facility], [id number] 11:05:08 Test Item Value Reference Range Interpretation Comments PTH (test code = 2731-8) 449.7 pg/mL 8.5-72.5 H BRANDI (test code = BRANDI) Child Attendant ID - ADMIN Lab Interpretation (test Abnormal code = 26342-7) [facility], [id number] 11:05:08 Test Item Value Reference Range Interpretation Comments PTH (test code = 2731-8) 449.7 pg/mL 8.5-72.5 H BRANDI (test code = BRANDI) Child Attendant ID - ADMIN Lab Interpretation (test Abnormal code = 47087-5) [facility], [id number] 11:05:08 Test Item Value Reference Range Interpretation Comments PTH (test code = 2731-8) 449.7 pg/mL 8.5-72.5 H BRANDI (test code = BRANDI) Child Attendant ID - ADMIN Lab Interpretation (test Abnormal code = 99636-1) [facility], [id number] 11:05:08 Test Item Value Reference Range Interpretation Comments PTH (test code = 2731-8) 449.7 pg/mL 8.5-72.5 H BRANDI (test code = BRANDI) Child Attendant ID - ADMIN Lab Interpretation (test Abnormal code = 20258-2) [facility], [id number] 11:05:08 Test Item Value Reference Range Interpretation Comments PTH (test code = 2731-8) 449.7 pg/mL 8.5-72.5 H BRANDI (test code = BRANDI) Child Attendant ID - ADMIN Lab Interpretation (test Abnormal code = 69063-0) [facility], [id number] 11:05:08 Test Item Value Reference Range Interpretation Comments PTH (test code = 2731-8) 449.7 pg/mL 8.5-72.5 H BRANDI (test code = BRANDI) Child Attendant ID - ADMIN Lab Interpretation (test Abnormal code = 70681-5) [facility], [id number] 11:05:08 Test Item Value Reference Range Interpretation Comments PTH (test code = 2731-8) 449.7 pg/mL 8.5-72.5 H BRANDI (test code = BRANDI) Child Attendant ID - ADMIN Lab Interpretation (test Abnormal code = 94434-7) [facility], [id number] 11:05:08 Test Item Value Reference Range Interpretation Comments PARATHYROID HORMONE INTACT 449.7 pg/mL 8.5-72.5 H (BEAKER) (test code = 577) Child Attendant ID - [id number] 09:50:35 Test Item Value Reference Range Interpretation Comments FERRITIN (BEAKER) (test code = 926.02 ng/mL 5.00-275.00 H 361) Child Attendant ID - ADMINIRON, TIBC, % SAT. (WITHOUT FERRITIN)2021-06-08 09:30:51 Test Item Value Reference Range Interpretation Comments IRON (BEAKER) (test code = 547) 110.0 ug/dL 40.0-160.0 TOTAL IRON BINDING CAPACITY 135 ug/dL 250-450 L (BEAKER) (test code = 769) IRON % SATURATION (2) (BEAKER) 81 % 20-55 H (test code = 2590) Child Attendant ID - ADMINPOCT-GLUCOSE [id number] 07:11:26 Test Item Value Reference Range Interpretation Comments POC-GLUCOSE METER 199 mg/dL 70-110 H : TESTED A T [facility] 6720 (BEAKER) (test code = [place], 1538) [address]: Child Attendant/Techni kelle ID = [id number] for Tavia Bruce Vitamin [id number] 06:28:47 Test Item Value Reference Range Interpretation Comments Vitamin B12 (test code = 1626 pg/mL 213-816 H 2132-9) BRANDI (test code = BRANDI) Child Attendant ID - ADMIN Lab Interpretation (test Abnormal code = 86802-8) [facility] [id number] 06:28:47 Test Item Value Reference Range Interpretation Comments Vitamin B12 (test code = 1626 pg/mL 213-816 H 2132-9) BRANDI (test code = BRANDI) Child Attendant ID - ADMIN Lab Interpretation (test Abnormal code = 86791-2) [facility] [id number] 06:28:47 Test Item Value Reference Range Interpretation Comments Vitamin B12 (test code = 1626 pg/mL 213-816 H 2132-9) BRANDI (test code = BRANDI) Child Attendant ID - ADMIN Lab Interpretation (test Abnormal code = 40359-5) [facility] [id number] 06:28:47 Test Item Value Reference Range Interpretation Comments Vitamin B12 (test code = 1626 pg/mL 213-816 H 2132-9) BRANDI (test code = BRANDI) Child Attendant ID - ADMIN Lab Interpretation (test Abnormal code = 53053-3) [facility] [id number] 06:28:47 Test Item Value Reference Range Interpretation Comments Vitamin B12 (test code = 1626 pg/mL 213-816 H 2132-9) BRANDI (test code = BRANDI) Child Attendant ID - ADMIN Lab Interpretation (test Abnormal code = 69731-4) [facility] [id number] 06:28:47 Test Item Value Reference Range Interpretation Comments Vitamin B12 (test code = 1626 pg/mL 213-816 H 2132-9) BRANDI (test code = BRANDI) Child Attendant ID - ADMIN Lab Interpretation (test Abnormal code = 10424-3) [facility] [id number] 06:28:47 Test Item Value Reference Range Interpretation Comments Vitamin B12 (test code = 1626 pg/mL 213-816 H 2132-9) BRANDI (test code = BRANDI) Child Attendant ID - ADMIN Lab Interpretation (test Abnormal code = 26658-4) [facility] [id number] 06:28:47 Test Item Value Reference Range Interpretation Comments Vitamin B12 (test code = 1626 pg/mL 213-816 H 2132-9) BRANDI (test code = BRANDI) Child Attendant ID - ADMIN Lab Interpretation (test Abnormal code = 99005-8) [facility] [id number] 06:28:47 Test Item Value Reference Range Interpretation Comments Vitamin B12 (test code = 1626 pg/mL 213-816 H 2132-9) BRANDI (test code = BRANDI) Child Attendant ID - ADMIN Lab Interpretation (test Abnormal code = 02331-5) [facility] [id number] 06:28:47 Test Item Value Reference Range Interpretation Comments Vitamin B12 (test code = 1626 pg/mL 213-816 H 2132-9) BRANDI (test code = BRANDI) Child Attendant ID - ADMIN Lab Interpretation (test Abnormal code = 58516-8) [facility] [id number] 06:28:47 Test Item Value Reference Range Interpretation Comments Vitamin B12 (test code = 1626 pg/mL 213-816 H 2132-9) BRANDI (test code = BRANDI) Child Attendant ID - ADMIN Lab Interpretation (test Abnormal code = 64931-5) [facility] [id number] 06:28:47 Test Item Value Reference Range Interpretation Comments Vitamin B12 (test code = 1626 pg/mL 213-816 H 2132-9) BRANDI (test code = BRANDI) Child Attendant ID - ADMIN Lab Interpretation (test Abnormal code = 33153-2) [facility] [id number] 06:28:47 Test Item Value Reference Range Interpretation Comments Vitamin B12 (test code = 1626 pg/mL 213-816 H 2132-9) BRANDI (test code = BRANDI) Child Attendant ID - ADMIN Lab Interpretation (test Abnormal code = 04526-2) [facility] [id number] 06:28:47 Test Item Value Reference Range Interpretation Comments Vitamin B12 (test code = 1626 pg/mL 213-816 H 2132-9) BRANDI (test code = BRANDI) Child Attendant ID - ADMIN Lab Interpretation (test Abnormal code = 82172-6) [facility] [id number] 06:28:47 Test Item Value Reference Range Interpretation Comments Vitamin B12 (test code = 1626 pg/mL 213-816 H 2132-9) BRANDI (test code = BRANDI) Child Attendant ID - ADMIN Lab Interpretation (test Abnormal code = 73651-8) [facility] [id number] 06:28:47 Test Item Value Reference Range Interpretation Comments Vitamin B12 (test code = 1626 pg/mL 213-816 H 2132-9) BRANDI (test code = BRANDI) Child Attendant ID - ADMIN Lab Interpretation (test Abnormal code = 84142-1) [facility] [id number] 06:28:47 Test Item Value Reference Range Interpretation Comments Vitamin B12 (test code = 1626 pg/mL 213-816 H 2132-9) BRANDI (test code = BRANDI) Child Attendant ID - ADMIN Lab Interpretation (test Abnormal code = 10550-4) [facility] [id number] 06:28:47 Test Item Value Reference Range Interpretation Comments VITAMIN B12 (BEAKER) (test code = 1626 pg/mL 213-816 H 774) Child Attendant ID - ADMINBASIC METABOLIC [id number] 06:22:27 Test Item Value Reference Range Interpretation [...] S NOT APPLICABLE FOR DIALYSIS PATIEN TS. Child Attendant ID - [id number] 06:08:16 Test Item Value Reference Range Interpretation Comments MAGNESIUM (BEAKER) (test code = 2.3 mg/dL 1.6-2.6 627) Child Attendant ID - [id number] 06:08:16 Test Item Value Reference Range Interpretation Comments PHOSPHORUS (BEAKER) (test code = 5.6 mg/dL 2.3-4.7 H 604) Child Attendant ID - DBPROTHROMBIN TIME/[id number] 05:55:08 Test Item Value Reference Range Interpretation Comments PROTIME (BEAKER) 14.2 seconds 11.9-14.2 (test code = 759) INR (BEAKER) (test 1.12 See_Comment [Automat ed message] code = 370) The system bettermarks generated this result transmitted ref erence range: <=5.90. The reference range was not used to int erpret this result as normal/abnormal . RECOMMENDED COUMADIN/WARFARIN INR THERAPY RANGESSTANDARD DOSE: 2.0 - 3.0 Includes: PROPHYLAXIS for venous thrombosis, systemic embolization; TREATMENT for venous thrombosis and/or pulmonary embolus.HIGH RISK: Target INR is 2.5-3.5 for patients with mechanical heart valves.CBC W/PLT COUNT & AUTO [id number] 05:42:08 Test Item Value Reference Range Interpretation [...] = 2801) RAD, CHEST, 1 VIEW, NON [id number] 02:35:00Reason for exam:->shortness of breathShould this be performed at the bedside?->Yes [facility] 1955 Sex: FFINAL REPORT RAD, CHEST, 1 VIEW, NON DEPT INDICATION: shortness of breath COMPARISON: None FINDINGS: Portable frontal view of the chest. 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 Lungs and pleura: No airspace consolidation or effusion. No pneumothorax. Heart and mediastinum: Unremarkable cardiomediastinal contours. Additional findings: Status post median sternotomy. Signed: Andrew [facility] Verified Date/Time: 06/08/2021 02:35:39 POCT-GLUCOSE [id number] 23:26:33 Test Item Value Reference Range Interpretation Comments POC-GLUCOSE METER 279 mg/dL 70-110 H : TESTED A T [facility] 6720 (BEAKER) (test code = [address]UD[address] [facility], 1538) [address]: Child Attendant/Techni kelle ID = [id number] for Lakisha edwigeTavia schafer COMPREHENSIVE METABOLIC [id number] 22:28:11 Test Item Value Reference Range Interpretation [...] S NOT APPLICABLE FOR DIALYSIS PATIEN TS. Child Attendant ID - DBVancomycin level, [id number] 22:19:31 Test Item Value Reference Range Interpretation Comments Vancomycin Rm (test 16.1 ug/mL code = 52588-0) BRANDI (test code = Reference Range: No BRANDI) NormalsOperator ID - DB [facility], [id number] 22:19:31 Test Item Value Reference Range Interpretation Comments Vancomycin Rm (test 16.1 ug/mL code = 92038-0) BRANDI (test code = Reference Range: No BRANDI) NormalsOperator ID - DB [facility] Center[facility]com[facility], [id number] 22:19:31 Test Item Value Reference Range Interpretation Comments Vancomycin Rm (test 16.1 ug/mL code = 86975-1) BRANDI (test code = Reference Range: No BRANDI) NormalsOperator ID - DB [facility], [id number] 22:19:31 Test Item Value Reference Range Interpretation Comments Vancomycin Rm (test 16.1 ug/mL code = 59647-1) BRANDI (test code = Reference Range: No BRANDI) NormalsOperator ID - DB [facility], [id number] 22:19:31 Test Item Value Reference Range Interpretation Comments Vancomycin Rm (test 16.1 ug/mL code = 43882-2) BRANDI (test code = Reference Range: No BRANDI) NormalsOperator ID - DB [facility], [id number] 22:19:31 Test Item Value Reference Range Interpretation Comments Vancomycin Rm (test 16.1 ug/mL code = 07751-1) BRANDI (test code = Reference Range: No BRANDI) NormalsOperator ID - DB [facility], [id number] 22:19:31 Test Item Value Reference Range Interpretation Comments Vancomycin Rm (test 16.1 ug/mL code = 04535-8) BRANDI (test code = Reference Range: No BRANDI) NormalsOperator ID - DB [facility], [id number] 22:19:31 Test Item Value Reference Range Interpretation Comments Vancomycin Rm (test 16.1 ug/mL code = 79247-5) BRANDI (test code = Reference Range: No BRANDI) NormalsOperator ID - DB [facility], [id number] 22:19:31 Test Item Value Reference Range Interpretation Comments Vancomycin Rm (test 16.1 ug/mL code = 09014-1) BRANDI (test code = Reference Range: No BRANDI) NormalsOperator ID - DB [facility], [id number] 22:19:31 Test Item Value Reference Range Interpretation Comments Vancomycin Rm (test 16.1 ug/mL code = 21187-4) BRANDI (test code = Reference Range: No BRANDI) NormalsOperator ID - DB [facility], [id number] 22:19:31 Test Item Value Reference Range Interpretation Comments Vancomycin Rm (test 16.1 ug/mL code = 21252-9) BRANDI (test code = Reference Range: No BRANDI) NormalsOperator ID - DB [facility], [id number] 22:19:31 Test Item Value Reference Range Interpretation Comments Vancomycin Rm (test 16.1 ug/mL code = 22589-0) BRANDI (test code = Reference Range: No BRANDI) NormalsOperator ID - DB [facility], [id number] 22:19:31 Test Item Value Reference Range Interpretation Comments Vancomycin Rm (test 16.1 ug/mL code = 71910-5) BRANDI (test code = Reference Range: No BRANDI) NormalsOperator ID - DB [facility], [id number] 22:19:31 Test Item Value Reference Range Interpretation Comments Vancomycin Rm (test 16.1 ug/mL code = 18839-8) BRANDI (test code = Reference Range: No BRANDI) NormalsOperator ID - DB [facility], [id number] 22:19:31 Test Item Value Reference Range Interpretation Comments Vancomycin Rm (test 16.1 ug/mL code = 24937-3) BRANDI (test code = Reference Range: No BRANDI) NormalsOperator ID - DB [facility], [id number] 22:19:31 Test Item Value Reference Range Interpretation Comments Vancomycin Rm (test 16.1 ug/mL code = 51342-6) BRANDI (test code = Reference Range: No BRANDI) [facility]Operator ID [facility], [id number] 22:19:31 Test Item Value Reference Range Interpretation Comments Vancomycin Rm (test 16.1 ug/mL code = 70539-3) BRANDI (test code = Reference Range: No BRANDI) NormalsOperator ID - DB [facility], [id number] 22:19:31 Test Item Value Reference Range Interpretation Comments VANCOMYCIN RANDOM (BEAKER) (test 16.1 ug/mL code = 523) Reference Range: No NormalsOperator ID - DBCBC W/PLT COUNT & AUTO [id number] 22:05:27 Test Item Value Reference Range Interpretation [...] Interpretation Comments POCT GLU (test code = 6875829104) 129 mg/dL 70-110 H Lab Interpretation (test code = Abnormal 88807-9) [facility] GLUCOSE (AUTOMATED)2021-05-22 17:41:02 Test Item Value Reference Range Interpretation Comments POCT GLU (test code = 9472648983) 120 mg/dL 70-110 H Lab Interpretation (test code = Abnormal 57109-7) [facility] GLUCOSE (AUTOMATED)2021-05-22 13:46:20 Test Item Value Reference Range Interpretation Comments POCT GLU (test code = 0687505873) 174 mg/dL 70-110 H Lab Interpretation (test code = Abnormal 51884-0) [facility] METABOLIC PANEL (NA, K, CL, CO2, GLUCOSE, BUN, CREATININE, CA)2021-05-22 10:34:14 Test Item Value Reference Range Interpretation Comments NA (test code = 128 mmol/L 135-145 L 2078582265) K (test code = 5.2 mmol/L 3.5-5.0 H 3884496254) CL (test code = 95 mmol/L 98-108 L 4709755544) CO2 TOTAL (test code = 24 mmol/L 23-31 2271400606) AGAP (test code = 2-16 2646649700) BUN (test code = 43 mg/dL 7-23 H 4863555860) GLUCOSE (test code = 182 mg/dL 70-110 H 3476541995) CREATININE (test code = 5.93 mg/dL 0.50-1.04 H 2640595281) CALCIUM (test code = 8.0 mg/dL 8.6-10.6 L 5207312011) eGFR (test code = mL/min/1.73m2 1167679534) BRANDI (test code = BRANDI) Association of [...] tests). Lab Interpretation Abnormal (test code = 66156-0) [facility] WITH [id number] 10:25:51 Test Item Value Reference Range Interpretation Comments WBC (test code = See_Comment [Automated 2390-2) message] The sy stem which generated this result transmitted reference range : 4.30 - 11.10 10*3/?L. The reference range was not used to interpret this result as normal/abnormal . RBC (test code = See_Comment L [Automated 219-8) message] The sy stem which generated this [...] (test code = 50.7 fL 39.0-49.9 H 96671-5) RDW-CV (test code = 14.6 % 12.0-15.5 788-0) PLT (test code = See_Comment L [Automated 777-3) message] The sy stem which generated this result transmitted reference range : 166 - 358 10*3/ ?L. The reference r alba was not used to interpret this result as normal/abnormal . MPV (test code = 11.2 fL 9.5-12.9 55542-5) NRBC/100 WBC (test See_Comment [Automat ed code = 3536001468) message] The system which generated this result transmitted reference range : 0.0 - 10.0 /100 WBCs. The refer ence range was not u sed to interpret th is result as normal/abnormal . NRBC x10^3 (test code <0.01 See_Comment [Auto mated = 3621894782) message] The s ystem which generated this result transmitted reference range : 10*3/?L. The reference range was not used to interpret this result as normal/abnormal . GRAN MAT (NEUT) % 75.4 % (test code = 770-8) IMM GRAN % (test code 0.70 % = 0298868537) LYMPH % (test code = 12.5 % 736-9) MONO % (test code = 10.3 % 5905-5) EOS % (test code = 0.8 % 713-8) BASO % (test code = 0.3 % 706-2) GRAN MAT x10^3(ANC) 4.54 10*3/uL 1.88-7.09 (test code = 5303906514) IMM GRAN x10^3 (test 0.04 10*3/uL 0.00-0.06 code = 1494278886) LYMPH x10^3 (test code 0.75 10*3/uL 1.32-3.29 L = 731-0) MONO x10^3 (test code 0.62 10*3/uL 0.33-0.92 = 742-7) EOS x10^3 (test code = 0.05 10*3/uL 0.03-0.39 711-2) BASO x10^3 (test code <0.03 0.01-0.07 = 704-7) Lab Interpretation Abnormal (test code = 57096-9) [id number] 05:24:06 Test Item Value Reference Range Interpretation Comments NT-proBNP (test code 902848 pg/mL See_Comment H [Autom ated = 8611029706) message] The system which generated this result transmitted reference range : <=125. The reference range was not used to interpret this result as normal/abnormal . BRANDI (test code = BRANDI) Biotin has been reported to cause a negative bias, interpret results relative to patient's use of biotin. Lab Interpretation Abnormal (test code = 11335-4) [facility], [id number] 04:46:54 Test Item Value Reference Range Interpretation Comments GLUCOSE (test code = 2590967616) 107 mg/dL 70-110 Lab Interpretation (test code = Normal 24040-7) [facility] System[facility] Total [id number] 04:46:34 Test Item Value Reference Range Interpretation Comments T PROTEIN (test code = 6633490282) 6.1 g/dL 6.3-8.2 L Lab Interpretation (test code = Abnormal 20224-1) [facility] SystemLACT[facility] [id number] 04:46:18 Test Item Value Reference Range Interpretation Comments LDH (test code = 2434258196) 311 U/L 300-600 Lab Interpretation (test code = Normal 05880-8) [facility] [id number] 00:24:29 Test Item Value Reference Interpretation Comments Range TROPONIN I (test 0.084 ng/mL See_Comment H [Automated code = 5094717291) message] The system which generated this result [...] biotin. Lab Interpretation Abnormal (test code = 46139-6) [facility] System[facility] Pleural [id number] 23:21:29 Test Item Value Reference Range Interpretation Comments Case Report (test code = Non-Gynecologic 8499129654) Cytology ?Case: [id number] ?Authorizing Provider: ?Candido Robison, ?Collected: ? 05/20/2021 1604 ?Ordering Location: ? ? [facility] Medicine Surgery [facility] ?Received: ?05/20/2021 1631 ?Pathologist: ? Mariana, ? MD Duc ?Specimen: ? ?PLEURAL, RIGHT ? Final Diagnosis (test f7vsbOYbDFXow7fjXPHim code = 2079090462) GFuZzEwMzNcZnRuYmpcdW MxIHtccnRmMVxlcGljOTY aJGbcjkGjXQBduPCpC6Of uyeeRWazZN3kFQ9ghDbqj IJmgLVdZAKeBxOzh3iqf6 12xXZlv4frJXXMmujlaAj 2rQizX60ir3Q9SnmxX94j uFIrFFL2TDPqICPccROyY KTyULA0MYCqxGSfA7xgCB PmRR9kdqlmXSgoUTnqQNO bpFW3LNZtqSCkS6EgXVIu BMcfQWHjprr7VaXtMu4vc GVyeTcyMFxwYXJkXHBsYW luXGJcZnMyMFxwYXIgQS4 gIFBMRVVSQSwgUklHSFQ7 IYWTM7MFM7TBAVJJNUGzW umJPBS4ULHmiwBpQOGaXB 1aQqCBLLFTYrBiLk6LHA3 BTElHTkFOVCBDRUxMUyBc SeLaQPKAPCEPD00OAH5GF VxwYXJccGFyIFBhdWwgWW 77ocrzEZ1UHAPgiKPicKB hrMgled77UXA0MSEgCpA8 LzIwMjJccHJvdGVjdDAgX HBsYWluXGZzMjAgICAyOj N0DUOVWNOuinhvKER4q6h ydGYxXHNzdGVjZjIyMDAw OIZma7coSIEucTQtDzLoJ zNcZnRuYmpcdWMxXGRlZm Grq0enz615lUUel5bxRPE pHhF6wDSpKDWoeFigfbm5 iYrdVbBgAJZbc0dspiRbF mNoYXJzZXQwIEFyaWFsO3 91TNWmVMcdn6ndb1KzCMT khESeu8J6JQEQGJydYgOu X156p2vik4ontjMwbAG1D AZwFJG6MYlmerOsciX9YE xrlLIlOiX0YYrfgiGkUDg qdwXeocUiYeh0GXTdL735 DFF8cVpcc7iePMX1GKCgG WKyXjvqVe2hwHGlR320QY HhAXAFTJHxkYu0YWSijhR udbPghMMLr980F567m5tq JKPbjjFaoTlYotpnw0gzH 319XHBhcGVydzEyMjQwXH ZkuAZbgFC6OJXgRF6awrg iIEvxNRuuVWEshqF6CIJy hZQzA3YwFNHaZH0bpzclW FW2JOpdWVUlNGN6ZrZcOO Nmx9Ummlh4ShVeap9ipf4 7UDW1h7DbiRgdQQR4TMQ1 JlItGx7usQBeFLJgWK8gI yGgzHSrJRUwkc41oWynGF ysjdUtxC3lVlSgIAPpxXL mZAYvZL8leRQqPCLsjZ5m cmxjXHBnYnJkcmhlYWRcc GkmwiDaIt9qrEpzIBK3XH qvN9ifsF8dXbP4YUoaX6u yaL6qBCt9VMwmhPK3MJPs oL6dGL8bjaeqi9trAHsmW BdoDQXukgM7mfL7IKOhrV CtV7DzkX1oWDHtCN8mpnz px4drSIB1COfnAHVkZMP4 BuAwLGCza1Udsdc0AvUul 1LhlFGiNPxvE20az115VY NxinXvR2makKCjxxlkaZX euvmdYMqmsfV8XWNyAIMt YWluXGYxXGZzMjBcbGFuZ zEwMzNcaGljaFxmMVxkYm WcHBTcCDzoP7kcSqTyC7E yXGZzMjBccGFyIEkgaGF2 KQFrHJDlf77noZt4ZLBcg qzay3DaMXUfoGDlePLpcA 6vvzHsj7ilKFRxOCJpHYB qM0RnPEH6bMUsYISfjPLi qLL0FW6cqrUsDF3rOQTeY nkgcmVzaWRlbnRzLCBmZW kdh3xrHA4wWKFwmTbelF3 enDR4XGQmv7wwlSAoxYMh r7umn7KxgkQrZYodRIOyH PzhOBMqRLDdCE4kBGHqkX LqdzQvx7T3XfwcpPSwcww mHyvcyeV8GIktebphYBZy RXtuY9ayVoPtQLIsnTyiS tcxs4KlWFXxORNdKowinL FyfX0= Final Diagnosis Comment j1xuuBHxQPGwtSN1VwUqX (test code = 6512540603) WIvq9cue3BjbNXrlYJyHN bagAGbeqCxvi10wRO7uK3 9SR4lHIRtBhQ5UVXvyzO3 Cfg8CAFwEEAsdBHcD021w 8cxp4xwgcOxgAO5cDuhRG XkeakfCcU3REtpICNhlfa hPLz4TYrbHCCbhQO6RDOg iTGbQ3YfTLErDC4lqmh7S GN0IBjuOQHsAhO3BGVsjN EuAOJbbFjcYMzld649UWU 9EuLlBPNevmVfqKfcaO5e ZnMyMCBTbWVhcnMgYXJlI VTjaRQuV0FsbJVwTCEmRU 4zOVMot1werbUaEEWqVQ5 bK88jqDSye0ZuHJaoRNye X3ReqQKjEC4iRPZqv21nK BMcEO4alcBxWgMFbjCmPD ifN18swcMgV8RdhTUavXU pczNiBqynCQ6lYVIssh7= Clinical Information Clinical Hx: ESRD (test code = 2853796830) Gross Description (test i0tktTDkMQDnjGQ7EgPpS code = 4358650155) LKbl3oif8NdwRVrjHHtFH esgFKzsiRmug17sRH8vL4 3AV2tTXHwXeU4DKXseqI8 Rxr8YOMrMEAgnQJoP604a 8fer1eaqwXifGO2rTacYZ IpmrklUsS6NUbqMGAgiaj kFPh8NQtxVTJqzVL0HXCq sTRxM5BrJVVeFP9cqiz7E WK1ZQwgLNRnIvR4ZFUxiT LrOTQjpIauOYwsg372GZO 2AtIjXRZhjyZ5JHqvZUBf W3FbX9OqSTnoAVR8KJRpV CBcXHQgMSBcXGZsIFxcbm I5z6rqZVMshEGyVKZ0GSr caWQgNTEwMDIgXFxkYiBP FdFgYaMwOLX1HXI2XPWxD Aj2JPqcD1JXJNOhWQJ6SW BoBVp7JsS9LEj2MSZWXz5 hMSX6KRBfYEx3ZWY7CRX6 NCBcXHQgMiBcXGZsIFxcZ iBBcmlhbCBcXGZzIDEwIF dcffW8QOOhJYsuMEOeCbS ccGFyXGZzMjJccGFyIEEx LiAgUExFVVJBLCBSSUdIV LyhMEqBDzJYMU6BTIUFBa BGTFVJRFxwYXIgUmVjZWl 8RBLlEfCey2uwvNAmLXCm TesoRS4xQOedbHzldzWgi HVpZCBccGFyIFByZXBhcm GoRMUrf7wsTGSxUDlxUFI hcGFuaWNvbGFvdSBjeXRv j6FtukvpHO7xBUJxQl6rB Q7hm7KkmRZqxIOub7Gixl BobhDhGSLyzWrbqyrij5g bfOkce2EguLGrKY85GZAw aYJiXWF6TG2oxMfoCKQ9 Disclaimer (test code = g9xzoGVoDJMtq9wrDFVmj 0020678389) GFuZzEwMzNcZnRuYmpcdW PrNPypuqQfXElxm4YmT4U yMjAwMFxhbnNpXGRlZmxh bdpjJHWbSNT0xtUvQEEtW UacYJBkOSiqDf2woZJuuL mkFzEwCXTag0qnokYULXb yIpVpF854DATiBTxmr2ta r1DyHMLxfDNfy6Z6LVJWf tlsmSq0vQkxV91wr8L9Xy ewU8gqXNPzVGRpD9VzTV4 qXJXmSct6IJU3DQB1QKBm YABfT0HnMV4yLLKejYGlA Yk0w0imfWyxWMWlCWT7r5 mwUObegdEtPF7fps1mkCk 2b4ulzoYyRCJoUTZimKVT AGArE9IkuBalKq0siXs1y RtbYjujKWE5Auc5FN5pre 69rka6cQztDHJmuzjmGjK 6WXygUDJiwuqmBVx8SOht POTqlWC2HFAfnGGjR7VfS LAqYQ4drsu1XUX7ILtwFU UqAvW6BUTaqUExUGGnoMn tGGbmt703JUC0QpZzXN9o K8Wld0X9mL0fkWKoWHPdu EHuBzAaTMXqfh9gpFTtZW zan8JiSYW4xmK9jPHlwAW aYCHsRQ26Divct3DiNelw j8TyR30fgSD6QGuak8lvR X5pAvR7llGlKXwux4nvmU 8yOtF9OAdpYB2pFZ2pTRA nyA3rlxalIFThQrLaptbg CVFslEzhupHrVz2irScgL OC5WMomS4kjbW3kRgQ0SP scL3hlnP6vEFj1HNzktCA 8PCTkuL1pPP8znegrw7nc MOlrXIojYXFgcvE6ryK2G VEldUFeX2MwlZ5eEHLhRE 5zuabnz4ecWGV5RRpnPIU wQQQ0DaFdEGTuo4Igizl4 ZxJxa7AuuSNzYPtxI30rv 627RELqpbTiT0tdvCCyiz mwiFOddkemJOeowcY3AVD rahPho8PzZZZiPOD5HJsv TTpauNOtFQHttBkcq6kmF 3RscGFyXHBsYWluXGYxXG ZzMjBcbGFuZzEwMzNcaGl jaFxmMVxkYmNoXGYxXGxv V9rrMdOlP7WnRESxEmJgs NOfA5ufAWjubqEeDRTfsd IhiCP3RFgfI4v9DKGeptO boAh7nhSaHsRnTVTvBXU1 SUojsLDiCCXfl4Jbahndy EXxEo3mcMZzQGGtuV5hTV XyPCJcCBfrDT3jfGc8MLQ LzYOunIAuGfVSCTAfMX90 nxEgYCZQklcne2B4AVzeH ZUbz3XdfRHcZ2rxm6TyHU Cvk02jPV0qg5J0q8mzZPR 4NF6cn7EkUBYlrBOgzTQa JVEip4Mutadgk4EeGWYik vZmg3WuXRBerwDphPFtRS QbubChxg5cpqWeMDOtZVZ uB1RhljpxeOshdsAkYKUu al5nckTtHNZ5QIJQYFChM ZIlm7HzdM6nuEUDUHO3kB Hhyl6imvXTuKChDMQpos5 2AWPvZN9lH1zhWSUhYASn dfLqbVLed7ZlZFBxoPS3y PRuXG3BEvTQc87tQMBqIW SCkmKrNPAupNlolIS3elS 3wN3rUZtUIPKeVyo+IFRo VSXGLZEhFT9wyeAbj9Lxg mLmfHttDJGnaGVae0ScwY Ohn0NwuZgmf2MnmDZuzSH lQZ8cTZClaapuYUQvFUTS AzMCIPYdujN8h2YlIIQiR DPyHIT7lBhypys5SDBsiW 6rHQRlV1kdebgsMQqpOWL lh6TuoO5bnPCAqZGgi5Ct iXZouUVBzKBrPN1kdwYkW SePWFqTOFN1odDyASTzv7 XaKYnqQ6qqH87zhSrjmVe 1aDC3WAK7hT8vQfo+IFxw YXJccGFyIEFwcHJvcHJpY QVrmIebatAhS7ZfyvAckO 5vuUSocnGlUM2wLC7aY0X 7eZOfZNSibxAqp2saIIyj dmUgYmVlbiByZXZpZXdlZ QWoh5NuUQqcMUZ5RYnbic BpbmNsdWRpbmcgSCZFLCB QrROptYTmKNR2QPnxofCw wnMtMR5ryS6jtNbnzI3yd SEzbYE0lmcuPQUoLAQseQ beNCUjQE6lqCVhVJVtbkE SmDoqjAKguQ1iH5FnCIAz ZYUwul5tYPPmrT0nSZltw 2VydmljZXMgYXJlIHBlcm Yzqq2bGEFruUVRCG1ATFr vuOWhy8PjolHlO7nJQSB9 NUQwNjYwMjgxKSBleGNlc NXqXSOwds50BQQbjX0qxM pyGXZeyI6tiL4egKzosJ2 vZrRaLqToXCulZS9pSGJl S0ngzWKdUPXePSAsK7ptB vOkkT9zbFdbAZqjMwNaLl FwBBpoPVL2uL== Embedded Images (test code = 5641155767) [facility] 23:17:01 Test Item Value Reference Range Interpretation Comments POCT GLU (test code = 5147722182) 109 mg/dL 70-110 Lab Interpretation (test code = Normal 53108-9) [facility] System[facility]FF CON[facility]ULT [id number] 21:50:44 UNREMARKABLE LEUKOCYTES WITH ABSOLUTE LYMPHOPENIA. MODERATE NORMOCYTIC NORMOCHROMIC ANEMIA. MILD THROMBOCYTOPENIA.[facility] VITAMIN B12, [id number] 18:38:08 Test Item Value Reference Range Interpretation Comments VIT B12 (test code = >1000 240-930 H 3166702704) BRANDI (test code = BRANDI) Biotin has been reported to cause a positive bias, interpret results relative to patient's use of biotin. Lab Interpretation (test Abnormal code = 70246-7) [facility] D, [id number] 17:51:01 Test Item Value Reference Range Interpretation Comments VIT D 25OH (test code = 24 ng/mL 25-80 L 74176-3) BRANDI (test code = BRANDI) Deficiency: <20 ng/mLInsufficiency: 20-24 ng/mLOptimal: 25-80 ng/mL Lab Interpretation (test Abnormal code = 96305-8) [facility]2022-02-17 17:42:20 Test Item Value Reference Range Interpretation Comments FOLATE SER (test code = 6.1 ng/mL 3.0-20.0 Biot in has been 4965971205) reported to cau se a positive bias, interpret resul ts relative to patient's use o f biotin. Lab Interpretation (test Normal code = 92310-8) [facility]2021-05-21 17:17:00 Test Item Value Reference Range Interpretation Comments POCT GLU (test code = 3849604060) 175 mg/dL 70-110 H Lab Interpretation (test code = Abnormal 03305-0) [facility] [id number] 14:52:32 Test Item Value Reference Interpretation Comments Range TROPONIN I (test 0.109 ng/mL See_Comment H [Automated code = 0433002114) message] The system which generated this result [...] biotin. Lab Interpretation Abnormal (test code = 39585-9) [facility] SystemIRON [id number] 14:49:31 Test Item Value Reference Range Interpretation Comments IRON (test code = 0462998820) 30 ug/dL 50-160 L TIBC (test code = 5473237266) 185 ug/dL 250-410 L % FE SAT (test code = 7760680094) 16 % 20-50 L Lab Interpretation (test code = Abnormal 88999-1) [facility]2021-05-21 14:06:00 Test Item Value Reference Range Interpretation Comments POCT GLU (test code = 5241968335) 191 mg/dL 70-110 H Lab Interpretation (test code = Abnormal 44756-1) [facility] SystemFERRITIN [id number] 14:05:25 Test Item Value Reference Range Interpretation Comments FERRITIN (test code = 715.0 ng/mL 11.0-264.0 H 2056587297) BRANDI (test code = BRANDI) Biotin has been reported to cause a negative bias, interpret results relative to patient's use of biotin. Lab Interpretation (test Abnormal code = 82405-5) [facility] [id number] 13:56:37 Test Item Value Reference Range Interpretation Comments NT-proBNP (test code 991119 pg/mL See_Comment H [Autom ated = 7452867725) message] The system which generated this result transmitted reference range : <=125. The reference range was not used to interpret this result as normal/abnormal . BRANDI (test code = BRANDI) Biotin has been reported to cause a negative bias, interpret results relative to patient's use of biotin. Lab Interpretation Abnormal (test code = 42301-7) [facility] SystemTR[facility] [id number] 13:43:04 Test Item Value Reference Interpretation Comments Range TROPONIN I (test 0.100 ng/mL See_Comment H [Automated code = 0779950656) message] The system which generated this result [...] biotin. Lab Interpretation Abnormal (test code = 51954-1) [facility] SystemHEPATIC FUNCTION PANEL (54867) (ALB,T.PRO,BILI T,BU/BC,ALT,AST,ALK PHOS)2021-05-21 13:30:03 Test Item Value Reference Range Interpretation Comments TOTAL BILI (test code = 4928358443) 0.7 mg/dL 0.1-1.1 BILI UNCON (test code = 8771024033) 0.0 mg/dL 0.1-1.1 L BILI CONJ (test code = 5474813993) 0.0 mg/dL 0.0-0.3 T PROTEIN (test code = 2901138250) 7.2 g/dL 6.3-8.2 ALBUMIN (test code = 5983111020) 3.5 g/dL 3.5-5.0 ALK PHOS (test code = 1615247546) 156 U/L 34-122 H ALTv (test code = 1742-6) 12 U/L 5-35 AST(SGOT) (test code = 0059558267) 28 U/L 13-40 Lab Interpretation (test code = Abnormal 17870-9) [facility] SystemCBC WITH [id number] 10:18:09 Test Item Value Reference Range Interpretation Comments WBC (test code = See_Comment [Automated 6190-2) message] The sy stem which generated this result transmitted reference range : 4.30 - 11.10 10*3/?L. The reference range was not used to interpret this result as normal/abnormal . RBC (test code = See_Comment L [Automated 849-8) message] The sy stem which generated this [...] (test code = 52.3 fL 39.0-49.9 H 00662-0) RDW-CV (test code = 14.9 % 12.0-15.5 788-0) PLT (test code = See_Comment L [Automated 777-3) message] The sy stem which generated this result transmitted reference range : 166 - 358 10*3/ ?L. The reference r alab was not used to interpret this result as normal/abnormal . MPV (test code = 11.0 fL 9.5-12.9 19006-4) NRBC/100 WBC (test See_Comment [Automat ed code = 6156722523) message] The system which generated this result transmitted reference range : 0.0 - 10.0 /100 WBCs. The refer ence range was not u sed to interpret th is result as normal/abnormal . NRBC x10^3 (test code <0.01 See_Comment [Auto mated = 9591934409) message] The s ystem which generated this result transmitted reference range : 10*3/?L. The reference range was not used to interpret this result as normal/abnormal . GRAN MAT (NEUT) % 74.4 % (test code = 770-8) IMM GRAN % (test code 0.30 % = 6991138790) LYMPH % (test code = 12.9 % 736-9) MONO % (test code = 11.2 % 5905-5) EOS % (test code = 0.7 % 713-8) BASO % (test code = 0.5 % 706-2) GRAN MAT x10^3(ANC) 4.40 10*3/uL 1.88-7.09 (test code = 2557424172) IMM GRAN x10^3 (test <0.03 0.00-0.06 code = 5972214152) LYMPH x10^3 (test code 0.76 10*3/uL 1.32-3.29 L = 731-0) MONO x10^3 (test code 0.66 10*3/uL 0.33-0.92 = 742-7) EOS x10^3 (test code = 0.04 10*3/uL 0.03-0.39 711-2) BASO x10^3 (test code 0.03 10*3/uL 0.01-0.07 = 704-7) Lab Interpretation Abnormal (test code = 86655-5) [facility] METABOLIC PANEL (NA, K, CL, CO2, GLUCOSE, BUN, CREATININE, CA)2021-05-21 10:17:29 Test Item Value Reference Range Interpretation Comments NA (test code = 132 mmol/L 135-145 L 2259325805) K (test code = 4.6 mmol/L 3.5-5.0 7800843975) CL (test code = 99 mmol/L 98-108 4960921816) CO2 TOTAL (test code = 27 mmol/L 23-31 6508483588) AGAP (test code = 2-16 4650791646) BUN (test code = 30 mg/dL 7-23 H 8410026854) GLUCOSE (test code = 129 mg/dL 70-110 H 8139620255) CREATININE (test code = 4.51 mg/dL 0.50-1.04 H 6660851259) CALCIUM (test code = 8.1 mg/dL 8.6-10.6 L 5063769184) eGFR (test code = mL/min/1.73m2 3201821368) BRANDI (test code = BRANDI) Association of [...] tests). Lab Interpretation Abnormal (test code = 08448-4) [facility] GLUCOSE (AUTOMATED)2021-05-21 02:24:31 Test Item Value Reference Range Interpretation Comments POCT GLU (test code = 1447605758) 123 mg/dL 70-110 H Lab Interpretation (test code = Abnormal 14579-8) [facility] GLUCOSE (AUTOMATED)2021-05-20 22:40:15 Test Item Value Reference Range Interpretation Comments POCT GLU (test code = 2973287109) 193 mg/dL 70-110 H Lab Interpretation (test code = Abnormal 03944-5) [facility] GLUCOSE (AUTOMATED)2021-05-20 17:24:39 Test Item Value Reference Range Interpretation Comments POCT GLU (test code = 7104163776) 129 mg/dL 70-110 H Lab Interpretation (test code = Abnormal 24789-4) [id number] 16:20:09 Test Item Value Reference Range Interpretation Comments NT-proBNP (test code 060963 pg/mL See_Comment H [Autom ated = 5076425058) message] The system which generated this result transmitted reference range : <=125. The reference range was not used to interpret this result as normal/abnormal . BRANDI (test code = BRANDI) Biotin has been reported to cause a negative bias, interpret results relative to patient's use of biotin. Lab Interpretation Abnormal (test code = 80569-5) [facility]21-[facility]-20 13:50:50 Test Item Value Reference Range Interpretation Comments POCT GLU (test code = 7681607031) 142 mg/dL 70-110 H Lab Interpretation (test code = Abnormal 34750-9) [id number] 11:29:26 Test Item Value Reference Range Interpretation Comments LDH (test code = 0050878198) 424 U/L 300-600 Slight hemolysis Lab Interpretation (test code Normal = 96159-9) [facility] METABOLIC PANEL (NA, K, CL, CO2, GLUCOSE, BUN, CREATININE, CA)2021-05-20 11:28:05 Test Item Value Reference Range Interpretation Comments NA (test code = 132 mmol/L 135-145 L 8591335104) K (test code = 4.6 mmol/L 3.5-5.0 4595943153) CL (test code = 97 mmol/L 98-108 L 9856372272) CO2 TOTAL (test code = 26 mmol/L 23-31 0292510006) AGAP (test code = 2-16 8490698469) BUN (test code = 44 mg/dL 7-23 H 3557939593) GLUCOSE (test code = 161 mg/dL 70-110 H 1918158444) CREATININE (test code = 6.29 mg/dL 0.50-1.04 H 3099226019) CALCIUM (test code = 8.0 mg/dL 8.6-10.6 L 5833741406) eGFR (test code = mL/min/1.73m2 5439495651) BRANDI (test code = BRANDI) Association of [...] tests). Lab Interpretation Abnormal (test code = 54097-0) [facility] / [id number] 11:17:25 Test Item Value Reference Range Interpretation Comments PROTIME PATIENT (test See_Comment [Auto mated message] code = 5964-2) The system [employer] generated this result transmitted ref erence range: 12.0 - 1 4.7 Seconds. The re ference range was not u sed to interpret this result as normal/abnor mal. INR (test code = 6301-6) Nor mal INR <1.1; Warfarin Therap eutic range 2.0 to 3. 0 or 2.5 to 3.5, dep ending upon the indica tions. Lab Interpretation (test Normal code = 40713-1) [facility] GLUCOSE (AUTOMATED)2021-05-20 01:38:05 Test Item Value Reference Range Interpretation Comments POCT GLU (test code = 9602026141) 181 mg/dL 70-110 H Lab Interpretation (test code = Abnormal 20751-8) [facility] GLUCOSE (AUTOMATED)2021-05-19 23:12:33 Test Item Value Reference Range Interpretation Comments POCT GLU (test code = 3317514341) 129 mg/dL 70-110 H Lab Interpretation (test code = Abnormal 71436-3) [facility] GLUCOSE (AUTOMATED)2021-05-19 17:43:05 Test Item Value Reference Range Interpretation Comments POCT GLU (test code = 1811437588) 195 mg/dL 70-110 H Lab Interpretation (test code = Abnormal 16515-6) [id number] 16:56:37 Test Item Value Reference Range Interpretation Comments NT-proBNP (test code 615932 pg/mL See_Comment H [Autom ated = 6852527762) message] The system which generated this result transmitted reference range : <=125. The reference range was not used to interpret this result as normal/abnormal . BRANDI (test code = BRANDI) Biotin has been reported to cause a negative bias, interpret results relative to patient's use of biotin. Lab Interpretation Abnormal (test code = 80790-1) [facility] (NA, K, CL, CO2, GLUCOSE, BUN, CREATININE, CA)2021-05-19 15:16:19 Test Item Value Reference Range Interpretation Comments NA (test code = 132 mmol/L 135-145 L 2016203172) K (test code = 4.7 mmol/L 3.5-5.0 7583629937) CL (test code = 98 mmol/L 98-108 7282618570) CO2 TOTAL (test code = 24 mmol/L 23-31 1865301278) AGAP (test code = 2-16 3181767969) BUN (test code = 30 mg/dL 7-23 H 4839875178) GLUCOSE (test code = 101 mg/dL 70-110 2518103708) CREATININE (test code = 4.70 mg/dL 0.50-1.04 H 4187886772) CALCIUM (test code = 8.3 mg/dL 8.6-10.6 L 3701934802) eGFR (test code = mL/min/1.73m2 8231905613) BRANDI (test code = BRANDI) Association of [...] tests). Lab Interpretation Abnormal (test code = 04883-0) [facility] 14:16:27 Test Item Value Reference Range Interpretation Comments POCT GLU (test code = 5087924998) 112 mg/dL 70-110 H Lab Interpretation (test code = Abnormal 00186-2) [facility] WITH [id number] 13:09:08 Test Item Value Reference Range Interpretation Comments WBC (test code = See_Comment [Automated 6690-2) message] The sy stem which generated this result transmitted reference range : 4.30 - 11.10 10*3/?L. The reference range was not used to interpret this result as normal/abnormal . RBC (test code = See_Comment L [Automated 559-8) message] The sy stem which generated this [...] (test code = 51.2 fL 39.0-49.9 H 71008-1) RDW-CV (test code = 14.6 % 12.0-15.5 788-0) PLT (test code = See_Comment L [Automated 777-3) message] The sy stem which generated this result transmitted reference range : 166 - 358 10*3/ ?L. The reference r alba was not used to interpret this result as normal/abnormal . MPV (test code = 11.0 fL 9.5-12.9 59626-3) NRBC/100 WBC (test See_Comment [Automat ed code = 9836861798) message] The system which generated this result transmitted reference range : 0.0 - 10.0 /100 WBCs. The refer ence range was not u sed to interpret th is result as normal/abnormal . NRBC x10^3 (test code <0.01 See_Comment [Auto mated = 6466215394) message] The s ystem which generated this result transmitted reference range : 10*3/?L. The reference range was not used to interpret this result as normal/abnormal . GRAN MAT (NEUT) % 82.8 % (test code = 770-8) IMM GRAN % (test code 0.40 % = 9963568781) LYMPH % (test code = 7.8 % 736-9) MONO % (test code = 7.9 % 5905-5) EOS % (test code = 0.7 % 713-8) BASO % (test code = 0.4 % 706-2) GRAN MAT x10^3(ANC) 5.98 10*3/uL 1.88-7.09 (test code = 2882999088) IMM GRAN x10^3 (test 0.03 10*3/uL 0.00-0.06 code = 9568817282) LYMPH x10^3 (test code 0.56 10*3/uL 1.32-3.29 L = 731-0) MONO x10^3 (test code 0.57 10*3/uL 0.33-0.92 = 742-7) EOS x10^3 (test code = 0.05 10*3/uL 0.03-0.39 711-2) BASO x10^3 (test code 0.03 10*3/uL 0.01-0.07 = 704-7) Lab Interpretation Abnormal (test code = 05125-0) [facility] B Surface Antibody (HBsAb)2021-05-19 09:35:37 Test Item Value Reference Range Interpretation Comments HBsAB (test code = Positive 2928849210) HBsAb mIU/mL Semi-Quantitative (test code = 3843599367) BRANDI (test code = Interpretation: BRANDI) ?Hepatitis B Surface Antibody ? Negative - Patient is considered to be not immune to infection with HBV. ? ? Positive - Anti-HBs detected at greater than or equal to 12 mIU/mL. ?Patient is considered to be immune to infection with HBV. ? [facility] B Surface Antigen (HBsAg)2021-05-19 09:17:53 Test Item Value Reference Range Interpretation Comments HBsAg Semi-Quantitative (test code = Negative Negative 5195-3) [facility] GLUCOSE (AUTOMATED)2021-05-19 03:13:02 Test Item Value Reference Range Interpretation Comments POCT GLU (test code = 6975107809) 110 mg/dL 70-110 Lab Interpretation (test code = Normal 79078-9) [facility] GLUCOSE (AUTOMATED)2021-05-18 23:00:40 Test Item Value Reference Range Interpretation Comments POCT GLU (test code = 0801127801) 177 mg/dL 70-110 H Lab Interpretation (test code = Abnormal 13227-6) [facility] GLUCOSE (AUTOMATED)2021-05-18 17:50:50 Test Item Value Reference Range Interpretation Comments POCT GLU (test code = 9469068984) 179 mg/dL 70-110 H Lab Interpretation (test code = Abnormal 71987-4) [facility] GLUCOSE (AUTOMATED)2021-05-18 17:26:29 Test Item Value Reference Range Interpretation Comments POCT GLU (test code = 5268005691) 171 mg/dL 70-110 H Lab Interpretation (test code = Abnormal 14602-4) [facility] METABOLIC PANEL (NA, K, CL, CO2, GLUCOSE, BUN, CREATININE, CA)2021-05-18 15:43:01 Test Item Value Reference Range Interpretation Comments NA (test code = 128 mmol/L 135-145 L 9376743010) K (test code = 5.5 mmol/L 3.5-5.0 H 9017679005) CL (test code = 94 mmol/L 98-108 L 8180456714) CO2 TOTAL (test code = 24 mmol/L 23-31 1469579165) AGAP (test code = 2-16 0988242883) BUN (test code = 56 mg/dL 7-23 H 2890914233) GLUCOSE (test code = 130 mg/dL 70-110 H 4643879108) CREATININE (test code = 7.52 mg/dL 0.50-1.04 H 3430304918) CALCIUM (test code = 7.8 mg/dL 8.6-10.6 L 9557560074) eGFR (test code = mL/min/1.73m2 5561963982) BRANDI (test code = BRANDI) Association of [...] tests). Lab Interpretation Abnormal (test code = 99913-8) [facility] GLUCOSE (AUTOMATED)2021-05-18 13:33:12 Test Item Value Reference Range Interpretation Comments POCT GLU (test code = 7509810911) 129 mg/dL 70-110 H Lab Interpretation (test code = Abnormal 17865-0) [facility] GLUCOSE (AUTOMATED)2021-05-17 22:57:15 Test Item Value Reference Range Interpretation Comments POCT GLU (test code = 8936058422) 215 mg/dL 70-110 H Lab Interpretation (test code = Abnormal 01748-7) [facility]an[facility] ([facility]E)2021-[facility]-17 18:02:09 Test Item Value Reference Range Interpretation Comments LVOT diameter (test code 2.00 cm = 6064008473) MV Peak E [place] (test code 134.0 cm/s = 6996738033) MV Peak A [place] (test code 54.2 cm/s = 1641698789) E/A ratio (test code = ratio 3326788337) E wave decelartion time 0.22 s (test code = 9141644582) LA size (test code = 5.4 cm 4455315004) MV stenosis pressure 1/2 65.0 ms time (test code = 8558668240) MV dec slope (test code 604.00 cm/s2 = 6180384745) Ao root annulus (test 2.7 cm code = 7846734937) Ao root diam (test code 2.70 cm = 3617545053) Aortic root (test code = 2.7 cm 6873367772) LVIDD (test code = 5.10 cm 8248127066) IVS (test code = 1.06 cm 6863115267) Interventricular Septum 1.06 cm Diastolic Thickness by 2D (test code = 9984117) LVPWD (test code = 1.00 cm 4405910958) PW (test code = 1.00 cm 0.6-1.7 6876799760) LVIDS (test code = 3.70 cm 3838150840) FS (test code = 27 % 1017401957) EF(Teich) (test code = 52.60 % 7345736352) EF - 2D (test code = 52.60 % 40602582) MR max PG (test code = 123.90 mm[Hg] 5760421166) MR max marietta (test code = 556.50 cm/s 3732517436) Mr max [place] (test code = 556.5 m/s 2350679148) LAV(MOD-sp4) (test code 46.70 mL = 8465977080) LA Volume Index (BP) 29.2 mL/m2 (test code = 2929731475) LA volume (BP) (test 51.8 mL code = 3537343074) LAV(MOD-sp2) (test code 52.40 mL = 2960140417) Aortic valve mean 105.0 cm/s velocity (test code = 7507292260) Ao peak [place] (test code = 160.0 cm/s 8109251295) Ao VTI (test code = 30.0 cm 7446019897) Ao max PG (test code = 10.20 mm[Hg] 5681804606) AV peak gradient (test mmHg code = 2360914093) AV mean gradient (test mmHg code = 1817763049) LVOT stroke volume (test 63.60 cm3 code = 7844109788) LVOT peak [place] (test code 108.3 cm/s = 9075179430) LVOT mn grad (test code mmHg = 0581362054) AV LVOT peak gradient mmHg (test code = 5843718178) LVOT peak VTI (test code 20.2 cm = 4561076641) AV area by cont VTI 2.1 cm2 (test code = 6812214857) AV area peak [place] (test 2.1 cm2 code = 6648578144) LV V1 mean (test code = 66.80 cm/s 7074767760) AV valve area (test code 2.12 cm2 = 0227825962) TR Peak [place] (test code = 342.9 cm/s 6699969919) Triscuspid Valve mmHg Regurgitation Peak Gradient (test code = 6000598156) PV REGURGITATION PEAK mmHg GRADIENT (test code = 1368398088) PI dec slope (test code 438.00 cm/s2 = 6182951112) Pulmonic Regurgitant End 105.3 cm/s Max Velocity (test code = 9894748361) Inferior Vena Cava 2.33 cm Diameter (test code = 2104460220) MV Prop V (test code = 37.50 cm/s 5203272327) Radiology Study observation (narrative) (test code = 60350-7) ADD (test code = ADD) Addendum by Brenda Fuentes MD on 05/17/2021 3:16 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 ?Left?Ventricle: Low normal systolic function with a [...] (73.9 kg) 1.81 sq meters 165/73 71 [facility] GLUCOSE (AUTOMATED)2021-05-17 17:54:17 Test Item Value Reference Range Interpretation Comments POCT GLU (test code = 5742148483) 134 mg/dL 70-110 H Lab Interpretation (test code = Abnormal 07065-0) [facility] GLUCOSE (AUTOMATED)2021-05-17 14:18:37 Test Item Value Reference Range Interpretation Comments POCT GLU (test code = 6572719579) 119 mg/dL 70-110 H Lab Interpretation (test code = Abnormal 48381-0) [facility] [id number] 11:21:13 Test Item Value Reference Range Interpretation Comments NT-proBNP (test code 757693 pg/mL See_Comment H [Autom ated = 4819745384) message] The system which generated this result transmitted reference range : <=125. The reference range was not used to interpret this result as normal/abnormal . BRANDI (test code = BRANDI) Biotin has been reported to cause a negative bias, interpret results relative to patient's use of biotin. Lab Interpretation Abnormal (test code = 46942-8) [facility] WITHOUT [id number] 11:09:22 Test Item Value Reference Range Interpretation Comments WBC (test code = 6690-2) See_Comment [A utomated message] The system [employer] generated this result transmit levi reference range : 4.30 - 11.10 10*3/?L. The reference range was not used to interpret this result as normal/abnormal . RBC (test code = 789-8) See_Comment L [Au tomated message] The system [employer] generated this result transmit levi reference range [...] See_Comment L [Au tomated message] The system [facility] generated this result transmit levi reference range : 166 - 358 10*3/?L. The reference range was not used to interpret this result as normal/abnormal . MPV (test code = 11.1 fL 9.5-12.9 28105-0) RDW-CV (test code = 14.5 % 12.0-15.5 788-0) RDW-SD (test code = 50.8 fL 39.0-49.9 H 05114-8) NRBC x10^3 (test code = <0.01 See_Comment [Au tomated message] 0725735551) The [facility] generated this result transmit levi reference range : 10*3/?L. The reference range was not used to interpret this result as normal/abnormal . NRBC/100 WBC (test code See_Comment [Au tomated message] = 3306297181) The system [facility] generated this result transmit levi reference range : 0.0 - 10.0 /100 WBC s. The reference r alba was not used to interpret this result as normal/abnormal . IPF % (test code = 2364368639) Lab Interpretation (test Abnormal code = 13968-1) [facility] Test Item Value Reference Range Interpretation Comments MAGNESIUM (test code = 4684016025) 2.1 mg/dL 1.7-2.4 Lab Interpretation (test code = Normal 59520-0) [facility] METABOLIC PANEL (NA, K, CL, CO2, GLUCOSE, BUN, CREATININE, CA)2021-05-17 10:56:22 Test Item Value Reference Range Interpretation Comments NA (test code = 130 mmol/L 135-145 L 5196363041) K (test code = 4.6 mmol/L 3.5-5.0 0602686192) CL (test code = 96 mmol/L 98-108 L 8268628528) CO2 TOTAL (test code = 26 mmol/L 23-31 3863938639) AGAP (test code = 2-16 5247909964) BUN (test code = 42 mg/dL 7-23 H 1733010768) GLUCOSE (test code = 148 mg/dL 70-110 H 5020674457) CREATININE (test code = 5.84 mg/dL 0.50-1.04 H 4501395701) CALCIUM (test code = 7.9 mg/dL 8.6-10.6 L 6587050397) eGFR (test code = mL/min/1.73m2 4290675584) BRANDI (test code = BRANDI) Association of [...] tests). Lab Interpretation Abnormal (test code = 80379-7) [facility] 10:56:02 Test Item Value Reference Range Interpretation Comments PHOSPHORUS (test code = 3901361525) 5.8 mg/dL 2.5-5.0 H Lab Interpretation (test code = Abnormal 97870-8) [facility] GLUCOSE (AUTOMATED)2021-05-16 22:43:07 Test Item Value Reference Range Interpretation Comments POCT GLU (test code = 5202399423) 231 mg/dL 70-110 H Lab Interpretation (test code = Abnormal 24331-2) [facility] GLUCOSE (AUTOMATED)2021-05-16 17:43:53 Test Item Value Reference Range Interpretation Comments POCT GLU (test code = 2901144690) 154 mg/dL 70-110 H Lab Interpretation (test code = Abnormal 99165-3) [facility] GLUCOSE (AUTOMATED)2021-05-16 13:42:36 Test Item Value Reference Range Interpretation Comments POCT GLU (test code = 7549070796) 121 mg/dL 70-110 H Lab Interpretation (test code = Abnormal 39774-9) [facility] WITHOUT [id number] 09:48:31 Test Item Value Reference Range Interpretation Comments WBC (test code = 6690-2) See_Comment [A utomated message] The system [employer] generated this result transmit levi reference range : 4.30 - 11.10 10*3/?L. The reference range was not used to interpret this result as normal/abnormal . RBC (test code = 789-8) See_Comment L [Au tomated message] The system [employer] generated this result transmit levi reference range [...] See_Comment L [Au tomated message] The system [facility] generated this result transmit levi reference range : 166 - 358 10*3/?L. The reference range was not used to interpret this result as normal/abnormal . MPV (test code = 10.9 fL 9.5-12.9 49140-7) RDW-CV (test code = 15.0 % 12.0-15.5 788-0) RDW-SD (test code = 52.6 fL 39.0-49.9 H 22735-3) NRBC x10^3 (test code = <0.01 See_Comment [Au tomated message] 0007628502) The system [facility] [email or web address] generated this result transmit levi reference range : 10*3/?L. The reference range was not used to interpret this result as normal/abnormal . NRBC/100 WBC (test code See_Comment [Au tomated message] = 9680060377) The system [facility] generated this result transmit levi reference range : 0.0 - 10.0 /100 WBC s. The reference r alba was not used to interpret this result as normal/abnormal . IPF % (test code = 1913057311) Lab Interpretation (test Abnormal code = 24183-3) [facility] (Total Cholesterol, Triglycerides, HDL)2021-05-16 09:36:18 Test Item Value Reference Range Interpretation Comments CHOL (test code = 157 mg/dL 120-200 2802804583) HDL (test code = 26 mg/dL >50 L 2903340679) HDLC RATIO (test code = See_Comment H [Au tomated message] 2282247138) The system [facility] [email or web address] generated this result transmit levi reference range : <=4.5. The refe rence range was not u sed to interpret th is result as normal/abnormal . TRIG (test code = 146 mg/dL 30-170 3494931103) LDL CHOL (test code = 102 mg/dL See_Comment [Auto mated message] 27355-2) The system [employer] generated this result transmit levi reference range : <=160. The refe rence range was not u sed to interpret th is result as normal/abnormal . VLDL (test code = 29 mg/dL 5-60 9651846824) Lab Interpretation (test Abnormal code = 09350-4) [facility] System[facility]cosylated Hemoglobin (A1C)2021-05-16 09:22:50 Test Item Value Reference Range Interpretation Comments HGB A1C (test code = 6.2 % 4.0-5.7 H 4548-4) BRANDI (test code = BRANDI) Reference RangesNormal: <5.7%Prediabetes: 5.7 - 6.4%Diabetes: > 6.5% Lab Interpretation (test Abnormal code = 30567-6) [facility] SystemTroponin [id number] 09:19:18 Test Item Value Reference Interpretation Comments Range TROPONIN I (test 0.028 ng/mL See_Comment [Automated code = 3080783707) message] The system which generated this result [...] biotin. Lab Interpretation Normal (test code = 88212-8) [facility] (NA, K, CL, CO2, GLUCOSE, BUN, CREATININE, CA)2021-05-16 09:08:35 Test Item Value Reference Range Interpretation Comments NA (test code = 134 mmol/L 135-145 L 6261321577) K (test code = 4.3 mmol/L 3.5-5.0 0823841771) CL (test code = 98 mmol/L 98-108 7834610188) CO2 TOTAL (test code = 27 mmol/L 23-31 0905476849) AGAP (test code = 2-16 5755657471) BUN (test code = 28 mg/dL 7-23 H 6541511191) GLUCOSE (test code = 114 mg/dL 70-110 H 0890543555) CREATININE (test code = 4.79 mg/dL 0.50-1.04 H 0676258733) CALCIUM (test code = 8.2 mg/dL 8.6-10.6 L 0387553880) eGFR (test code = mL/min/1.73m2 9398426221) BRANDI (test code = BRANDI) Association of [...] tests). Lab Interpretation Abnormal (test code = 81595-4) [facility] SystemMagnesium [id number] 09:08:35 Test Item Value Reference Range Interpretation Comments MAGNESIUM (test code = 3851808344) 2.2 mg/dL 1.7-2.4 Lab Interpretation (test code = Normal 70216-3) [facility] SystemTroponin [id number] 03:08:26 Test Item Value Reference Interpretation Comments Range TROPONIN I (test 0.019 ng/mL See_Comment [Automated code = 7770135174) message] The system which generated this result [...] biotin. Lab Interpretation Normal (test code = 75595-1) [facility] SystemPhosphorus [id number] 02:56:02 Test Item Value Reference Range Interpretation Comments PHOSPHORUS (test code = 4792442381) 4.5 mg/dL 2.5-5.0 Lab Interpretation (test code = Normal 14391-7) [facility]2021-05-16 02:28:15 Test Item Value Reference Range Interpretation Comments POCT GLU (test code = 8687734480) 155 mg/dL 70-110 H Lab Interpretation (test code = Abnormal 67236-0) [facility] SystemThyroid Stimulating Hormone (TSH)2021-05-16 01:56:53 Test Item Value Reference Range Interpretation Comments TSH (test code = See_Comment [Automated message] 6689076914) The system [employer] generated this result transmitted ref erence range: 0.45 - 4 .70 mIU/L. The refe rence range was not u sed to interpret this result as normal/abnor mal. Lab Interpretation (test Normal code = 70440-4) [facility] SystemGlycosylated Hemoglobin (A1C)2021-05-16 01:17:48 Test Item Value Reference Range Interpretation Comments HGB A1C (test code = 6.3 % 4.0-5.7 H 4548-4) BRANDI (test code = BRANDI) Reference RangesNormal: <5.7%Prediabetes: 5.7 - 6.4%Diabetes: > 6.5% Lab Interpretation (test Abnormal code = 38794-6) [facility]MINAL [id number] 20:42:55 Test Item Value Reference Range Interpretation Comments NT-proBNP (test code 855404 pg/mL See_Comment H [Autom ated = 9811030963) message] The system which generated this result transmitted reference range : <=125. The reference range was not used to interpret this result as normal/abnormal . BRANDI (test code = BRANDI) Biotin has been reported to cause a negative bias, interpret results relative to patient's use of biotin. Lab Interpretation Abnormal (test code = 06971-5) [facility] SystemTROPONIN [id number] 20:28:40 Test Item Value Reference Interpretation Comments Range TROPONIN I (test 0.012 ng/mL See_Comment [Automated code = 5400790310) message] The system which generated this result [...] biotin. Lab Interpretation Normal (test code = 79627-9) [facility] SystemD-[id number] 20:27:34 Test Item Value Reference Interpretation Comments Range D-DIMER (test code = See_Comment H [Autom ated 0301512882) message] The system which generated this result [...] diagnosis. Lab Interpretation Abnormal (test code = 78097-6) [facility] SystemMAGNESIUM2022-02-11 20:17:56 Test Item Value Reference Range Interpretation Comments MAGNESIUM (test code = 2604650794) 1.9 mg/dL 1.7-2.4 Lab Interpretation (test code = Normal 11624-3) [facility] SystemCOMP. METABOLIC PANEL (05374)2021-05-15 20:17:36 Test Item Value Reference Range Interpretation Comments NA (test code = 136 mmol/L 135-145 7040934373) K (test code = 4.2 mmol/L 3.5-5.0 3239718639) CL (test code = 99 mmol/L 98-108 8004028278) CO2 TOTAL (test code = 26 mmol/L 23-31 2099016422) AGAP (test code = 2-16 0809151945) BUN (test code = 24 mg/dL 7-23 H 6428346138) GLUCOSE (test code = 112 mg/dL 70-110 H 5539134851) CREATININE (test code = 3.82 mg/dL 0.50-1.04 H 6285875456) TOTAL BILI (test code = 1.0 mg/dL 0.1-1.4 1546112262) CALCIUM (test code = 8.5 mg/dL 8.6-10.6 L 4522583728) T PROTEIN (test code = 8.6 g/dL 6.3-8.2 H 0344794143) ALBUMIN (test code = 4.2 g/dL 3.5-5.0 7381423667) ALK PHOS (test code = 176 U/L 34-122 H 0478607917) ALTv (test code = 13 U/L 5-35 1742-6) AST(SGOT) (test code = 26 U/L 13-40 9209359186) eGFR (test code = mL/min/1.73m2 9102933499) BRANDI (test code = BRANDI) Association of [...] tests). Lab Interpretation Abnormal (test code = 74134-7) [facility] SystemLIPASE2022-02-11 20:17:15 Test Item Value Reference Range Interpretation Comments LIPASE (test code = 4900993519) 125 U/L 0-220 Lab Interpretation (test code = Normal 79557-2) [facility] SystemPROTHROMBIN TIME / [id number] 20:02:29 Test Item Value Reference Range Interpretation [...] tions. Lab Interpretation (test Normal code = 12194-0) [facility] SystemCB WITH [id number] 19:52:47 Test Item Value Reference Range Interpretation [...] (test code = 52.6 fL 39.0-49.9 H 73093-5) RDW-CV (test code = 15.0 % 12.0-15.5 788-0) PLT (test code = See_Comment L [Automated 777-3) message] The sy stem which generated this result transmitted reference range : 166 - 358 10*3/ ?L. The reference r alba was not used to interpret this result as normal/abnormal . MPV (test code = 10.9 fL 9.5-12.9 33757-7) NRBC/100 WBC (test See_Comment [Automat ed code = 0668776296) message] The system which generated this result transmitted reference range : 0.0 - 10.0 /100 WBCs. The refer ence range was not u sed to interpret th is result as normal/abnormal . NRBC x10^3 (test code <0.01 See_Comment [Auto mated = 6184239715) message] The s ystem which generated this result transmitted reference range : 10*3/?L. The reference range was not used to interpret this result as normal/abnormal . GRAN MAT (NEUT) % 74.8 % (test code = 770-8) IMM GRAN % (test code 0.60 % = 8269988391) LYMPH % (test code = 12.4 % 736-9) MONO % (test code = 8.7 % 5905-5) EOS % (test code = 2.6 % 713-8) BASO % (test code = 0.9 % 706-2) GRAN MAT x10^3(ANC) 4.06 10*3/uL 1.88-7.09 (test code = 6085232935) IMM GRAN x10^3 (test 0.03 10*3/uL 0.00-0.06 code = 8661960794) LYMPH x10^3 (test code 0.67 10*3/uL 1.32-3.29 L = 731-0) MONO x10^3 (test code 0.47 10*3/uL 0.33-0.92 = 742-7) EOS x10^3 (test code = 0.14 10*3/uL 0.03-0.39 711-2) BASO x10^3 (test code 0.05 10*3/uL 0.01-0.07 = 704-7) Lab Interpretation Abnormal (test code = 93388-2) [facility] SystemTroponin I.cardiac [Mass/volume] in Serum or [id number] 17:30:00 Test Item Value Reference Range Interpretation Comments Troponin I.cardiac 0.35 See_Comment [Automat ed message] The [Mass/volume] in Serum syste m which generated or Plasma (test code = this result transmitted Troponin I.cardiac reference range: <=0.045. [Mass/volume] in Serum The r eference range was or Plasma) not used to int erpret this result as normal/abnormal . [facility] HermannAbsolute lymphocyte [id number] 11:37:00 Test Item Value Reference Range Interpretation Comments Absolute lymphocyte count (test code = 0.7 0.7-4.9 Absolute lymphocyte count) [facility] HermannBasophil %2019-02-18 11:37:00 Test Item Value Reference Range Interpretation Comments Basophil % (test code = 2.4 See_Comment [Au tomated message] The Basophil %) system which ge nerated this result tra nsmitted reference range : <=1.3. The reference r alba was not used to int erpret this result as normal/abnormal . [facility] MalloryannBlood anisocytosis [id number] 11:37:00 Test Item Value Reference Range Interpretation Comments Blood anisocytosis detection (test code 2+ = Blood anisocytosis detection) [facility] MalloryannBlood erythrocytes count (number/volume)2019-02-18 11:37:00 Test Item Value Reference Range Interpretation Comments Blood erythrocytes count 3.34 3.86-4.86 (number/volume) (test code = Blood erythrocytes count (number/volume)) [facility] MalloryannBlood hematocrit (volume fraction)2019-02-18 11:37:00 Test Item Value Reference Range Interpretation Comments Blood hematocrit (volume fraction) 31.8 36.0-45.0 (test code = Blood hematocrit (volume fraction)) [facility] aawoyfpjv0833-00-14 11:37:00 Test Item Value Reference Range Interpretation Comments Blood morphology interpretation Noted narrative (test code = Blood morphology interpretation narrative) [facility]annBlood platelet mean maatsp8723-00-72 11:37:00 Test Item Value Reference Range Interpretation Comments Blood platelet mean volume (test code = 9.8 7.6-11.3 Blood platelet mean volume) [facility]oryannBlood poikilocytosis detection by light [id number] 11:37:00 Test Item Value Reference Range Interpretation Comments Blood poikilocytosis detection by light 1+ microscopy (test code = Blood poikilocytosis detection by light microscopy) [facility]annCalcium [Mass/volume] in Serum or [id number] 11:37:00 Test Item Value Reference Range Interpretation [...] dioxide, total [Moles/volume] in Serum or Plasma) [facility] HermannChemistry zceyiwsrz9510-03-18 11:37:00 Test Item Value Reference Range Interpretation Comments Chemistry procedure (test code = 95.3 80-100 Chemistry procedure) [facility]annChloride [Moles/volume] in Serum or [id number] 11:37:00 Test Item Value Reference Range Interpretation Comments Chloride [Moles/volume] in Serum or 98 98-107 Plasma (test code = Chloride [Moles/volume] in Serum or Plasma) [facility]annCreatinine [Mass/volume] in Serum or [id number] 11:37:00 Test Item Value Reference Range Interpretation Comments Creatinine [Mass/volume] in Serum or 7.35 0.55-1.3 Plasma (test code = Creatinine [Mass/volume] in Serum or Plasma) [facility]annGlucose [Mass/volume] in Serum or [id number] 11:37:00 Test Item Value Reference Range Interpretation Comments Glucose [Mass/volume] in Serum or 110 74-106 Plasma (test code = Glucose [Mass/volume] in Serum or Plasma) [facility]annMagnesium [Mass/volume] in Serum or [id number] 11:37:00 Test Item Value Reference Range Interpretation Comments Magnesium [Mass/volume] in Serum or 2.4 1.8-2.4 Plasma (test code = Magnesium [Mass/volume] in Serum or Plasma) [facility]annPhosphate [Mass/volume] in Serum or [id number] 11:37:00 Test Item Value Reference Range Interpretation Comments Phosphate [Mass/volume] in Serum or 4.7 2.5-4.9 Plasma (test code = Phosphate [Mass/volume] in Serum or Plasma) [facility]annPotassium [Moles/volume] in Serum or [id number] 11:37:00 Test Item Value Reference Range Interpretation [...] [facility]annUrea nitrogen [Mass/volume] in Serum or [id number] 11:37:00 Test Item Value Reference Range Interpretation Comments Urea nitrogen [Mass/volume] in Serum or 74 7-18 Plasma (test code = Urea nitrogen [Mass/volume] in Serum or Plasma) [facility]annUrine dipstick testing at mrgom-ch-oyre9921-11-17 11:37:00 Test Item Value Reference Range Interpretation Comments Urine dipstick testing at fckdm-tl-aera 2.6 4.3-10.9 (test code = Urine dipstick testing at hwajv-sm-zqhv) [facility]annAlanine aminotransferase [Enzymatic activity/volume] in Serum or Plasma by With P-5'-2019-02-18 00:35:00 Test Item Value Reference Range Interpretation Comments Alanine aminotransferase [Enzymatic 64 12-78 activity/volume] in Serum or Plasma by With P-5'- (test code = Alanine aminotransferase [Enzymatic activity/volume] in Serum or Plasma by With P-5'-) [facility]annAlbumin [Mass/volume] in Serum or Plasma by Bromocresol purple (BCP) dye binding [id number] 00:35:00 Test Item Value Reference Range Interpretation Comments Albumin [Mass/volume] in Serum or 3.6 3.4-5.0 Plasma by Bromocresol purple (BCP) dye binding meth (test code = Albumin [Mass/volume] in Serum or Plasma by Bromocresol purple (BCP) dye binding meth) [facility]annAlkaline phosphatase [Enzymatic activity/volume] in Serum or [id number] 00:35:00 Test Item Value Reference Range Interpretation Comments Alkaline phosphatase [Enzymatic 236 45-117 activity/volume] in Serum or Plasma (test code = Alkaline phosphatase [Enzymatic activity/volume] in Serum or Plasma) [facility]annAspartate aminotransferase [Enzymatic activity/volume] in Serum or Plasma by With [id number] 00:35:00 Test Item Value Reference Range Interpretation Comments Aspartate aminotransferase [Enzymatic 48 15-37 activity/volume] in Serum or Plasma by With P-5 (test code = Aspartate aminotransferase [Enzymatic activity/volume] in Serum or Plasma by With P-5) [facility]annBilirubin.direct [Mass/volume] in Serum or [id number] 00:35:00 Test Item Value Reference Range Interpretation Comments Bilirubin.direct 0.2 See_Comment [Automated message] The [Mass/volume] in Serum syste m which generated or Plasma (test code = this result transmitted Bilirubin.direct reference r alba: <=0.2. [Mass/volume] in Serum The r eference range was or Plasma) not used to int erpret this result as emilee l/abnormal. [facility]annBilirubin.total [Mass/volume] in Serum or [id number] 00:35:00 Test Item Value Reference Range Interpretation Comments Bilirubin.total [Mass/volume] in Serum 0.6 0.2-1.0 or Plasma (test code = Bilirubin.total [Mass/volume] in Serum or Plasma) [facility]annINR in Blood by Coagulation [id number] 00:35:00 Test Item Value Reference Range Interpretation Comments INR in Blood by Coagulation assay 1.15 1 (test code = INR in Blood by Coagulation assay) [facility]annNatriuretic peptide.B prohormone N-Terminal [Mass/volume] in Serum or [id number] 00:35:00 Test Item Value Reference Range Interpretation Comments Natriuretic peptide.B prohormone > 348063 N-Terminal [Mass/volume] in Serum or Plasma (test code = Natriuretic peptide.B prohormone N-Terminal [Mass/volume] in Serum or Plasma) [facility]annProtein [Mass/volume] in Serum or [id number] 00:35:00 Test Item Value Reference Range Interpretation Comments Protein [Mass/volume] in Serum or 8.0 6.4-8.2 Plasma (test code = Protein [Mass/volume] in Serum or Plasma) [facility] HermannTroponin I.cardiac [Mass/volume] in Serum or [id number] 00:35:00 Test Item Value Reference Range Interpretation Comments Troponin I.cardiac 0.32 See_Comment [Automat ed message] The [Mass/volume] in Serum syste m which generated or Plasma (test code = this result transmitted Troponin I.cardiac reference range: <=0.045. [Mass/volume] in Serum The r eference range was or Plasma) not used to int erpret this result as normal/abnormal . [facility] HermannSerum or plasma sodium measurement (moles/volume)2019-01-26 04:05:00 Test Item Value Reference Range Interpretation Comments Serum or plasma sodium measurement 136 136-145 (moles/volume) (test code = Serum or plasma sodium measurement (moles/volume)) [facility] HermannUrea nitrogen [Mass/volume] in Serum or [id number] 04:05:00 Test Item Value Reference Range Interpretation Comments Urea nitrogen [Mass/volume] in Serum or 52 7-18 Plasma (test code = Urea nitrogen [Mass/volume] in Serum or Plasma) [facility] HermannUrine dipstick testing at vzvqq-if-tyin6987-10-25 04:05:00 Test Item Value Reference Range Interpretation Comments Urine dipstick testing at ttheq-ff-wtup 3.4 4.3-10.9 (test code = Urine dipstick testing at vklyx-gy-iqkd) [facility] HermannAbsolute lymphocyte [id number] 04:05:00 Test Item Value Reference Range Interpretation Comments Absolute lymphocyte count (test code = 0.6 0.7-4.9 Absolute lymphocyte count) [facility] HermannBasophil %2019-01-26 04:05:00 Test Item Value Reference Range Interpretation Comments Basophil % (test code = 1.5 See_Comment [Au tomated message] The Basophil %) system which ge nerated this result tra nsmitted reference range : <=1.3. The reference r alba was not used to int erpret this result as normal/abnormal . [facility] HermannBlood erythrocytes count (number/volume)2019-01-26 04:05:00 Test Item Value Reference Range Interpretation Comments Blood erythrocytes count 3.64 3.86-4.86 (number/volume) (test code = Blood erythrocytes count (number/volume)) [facility]annBlood hematocrit (volume fraction)2019-01-26 04:05:00 Test Item Value Reference Range Interpretation Comments Blood hematocrit (volume fraction) 35.7 36.0-45.0 (test code = Blood hematocrit (volume fraction)) [facility]annBlood morphology interpretation [id number] 04:05:00 Test Item Value Reference Range Interpretation Comments Blood morphology interpretation Not seen narrative (test code = Blood morphology interpretation narrative) [facility]annBlood platelet mean [id number] 04:05:00 Test Item Value Reference Range Interpretation Comments Blood platelet mean volume (test code = 9.2 7.6-11.3 Blood platelet mean volume) [facility]annCalcium [Mass/volume] in Serum or [id number] 04:05:00 Test Item Value Reference Range Interpretation [...] [Moles/volume] in Serum or Plasma) [facility]annChemistry iysadffem4936-06-90 04:05:00 Test Item Value Reference Range Interpretation Comments Chemistry procedure (test code = 98.1 80-100 Chemistry procedure) [facility]annChloride [Moles/volume] in Serum or [id number] 04:05:00 Test Item Value Reference Range Interpretation Comments Chloride [Moles/volume] in Serum or 98 98-107 Plasma (test code = Chloride [Moles/volume] in Serum or Plasma) [facility]annCreatinine [Mass/volume] in Serum or [id number] 04:05:00 Test Item Value Reference Range Interpretation Comments Creatinine [Mass/volume] in Serum or 6.36 0.55-1.3 Plasma (test code = Creatinine [Mass/volume] in Serum or Plasma) [facility] in Serum or [id number] 04:05:00 Test Item Value Reference Range Interpretation Comments Glucose [Mass/volume] in Serum or 251 74-106 Plasma (test code = Glucose [Mass/volume] in Serum or Plasma) [facility]Potassium [Moles/volume] in Serum or [id number] 04:05:00 Test Item Value Reference Range Interpretation Comments Potassium [Moles/volume] in Serum or 4.7 3.5-5.1 Plasma (test code = Potassium [Moles/volume] in Serum or Plasma) [facility] w [id number] 01:55:00 Test Item Value Reference Range Interpretation Comments Bacterial culture w ID NORMAL UPPER (test code = Bacterial RESPIRATORY HARI culture w ID) GROWN. [facility]2019-07-10 16:07:00 Test Item Value Reference Range Interpretation Comments Bedside Glucose (test code = Bedside 175 65-120 Glucose) [facility] [id number] 05:35:00 Test Item Value Reference Range Interpretation Comments Blood Morphology Blood Morphology Comment (test code = Comment Blood Morphology Comment) [facility] [id number] 05:35:00 Test Item Value Reference Range Interpretation Comments Total Bilirubin (test code = Total 0.5 0.2-1.0 Bilirubin) [facility] [id number] 05:35:00 Test Item Value Reference Range Interpretation Comments Sodium Level (test code = Sodium Level) 137 136-145 [facility] [id number] 05:35:00 Test Item Value Reference Range Interpretation Comments Serum Total Protein (test code = Serum 7.5 6.4-8.2 Total Protein) [facility] [id number] 05:35:00 Test Item Value Reference Range Interpretation Comments Potassium Level (test code = Potassium 4.8 3.5-5.1 Level) [facility] [id number] 05:35:00 Test Item Value Reference Range Interpretation Comments Glucose Level (test code = Glucose 90 74-106 Level) [facility] Sthyaag0560-98-10 05:35:00 Test Item Value Reference Range Interpretation Comments Globulin (test code = Globulin) 4.3 2.3-3.5 [facility] [id number] 05:35:00 Test Item Value Reference Range Interpretation Comments Estimat Glomerular 7 See_Comment [Automat ed message] The Filtration Rate (test system which generated code = Estimat this result t ransmitted Glomerular Filtration refere nce range: >=90. Rate) The reference r alba was not used to int erpret this result as normal/abnormal . [facility]2019-07-10 05:35:00 Test Item Value Reference Range Interpretation Comments Creatinine (test code = Creatinine) 6.02 0.55-1.3 [facility]2019-07-10 05:35:00 Test Item Value Reference Range Interpretation Comments Chloride Level (test code = Chloride 102 98-107 Level) [facility]2019-07-10 05:35:00 Test Item Value Reference Range Interpretation Comments Carbon Dioxide Level (test code = 25 21-32 Carbon Dioxide Level) [facility]2019-07-10 05:35:00 Test Item Value Reference Range Interpretation Comments Calcium Level (test code = Calcium 8.1 8.5-10.1 Level) [facility]2019-07-10 05:35:00 Test Item Value Reference Range Interpretation Comments Blood Urea Nitrogen (test code = Blood 43 7-18 Urea Nitrogen) [facility]2019-07-10 05:35:00 Test Item Value Reference Range Interpretation Comments Aspartate Amino Transf (AST/SGOT) (test 36 15-37 code = Aspartate Amino Transf (AST/SGOT)) [facility]2019-07-10 05:35:00 Test Item Value Reference Range Interpretation Comments Alkaline Phosphatase (test code = 252 45-117 Alkaline Phosphatase) [facility]2019-07-10 05:35:00 Test Item Value Reference Range Interpretation Comments Albumin/Globulin Ratio (test code = 0.7 1 1.1-1.8 Albumin/Globulin Ratio) [facility]2019-07-10 05:35:00 Test Item Value Reference Range Interpretation Comments Albumin (test code = Albumin) 3.2 3.4-5.0 [facility]2019-07-10 05:35:00 Test Item Value Reference Range Interpretation Comments Alanine Aminotransferase (ALT/SGPT) 57 12-78 (test code = Alanine Aminotransferase (ALT/SGPT)) [facility]2019-07-10 05:35:00 Test Item Value Reference Range Interpretation Comments White Blood Count (test code = White 2.9 4.3-10.9 Blood Count) [facility]2019-07-10 05:35:00 Test Item Value Reference Range Interpretation Comments Red Cell Distribution Width (test code 17.2 12.1-15.2 = Red Cell Distribution Width) [facility]2019-07-10 05:35:00 Test Item Value Reference Range Interpretation Comments Red Blood Count (test code = Red Blood 3.49 3.86-4.86 Count) [facility]2019-07-10 05:35:00 Test Item Value Reference Range Interpretation Comments Platelet Count (test code = Platelet 116 152-406 Count) [facility]2019-07-10 05:35:00 Test Item Value Reference Range Interpretation Comments Neutrophils % (test code = Neutrophils 49.4 41.7-73.7 %) [facility]2019-07-10 05:35:00 Test Item Value Reference Range Interpretation Comments Monocytes % (test code = Monocytes %) 10.4 3.3-12.3 [facility]2019-07-10 05:35:00 Test Item Value Reference Range Interpretation Comments Mean Platelet Volume (test code = Mean 8.7 7.6-11.3 Platelet Volume) [facility]2019-07-10 05:35:00 Test Item Value Reference Range Interpretation Comments Mean Corpuscular Volume (test code = 98.2 80-100 Mean Corpuscular Volume) [facility]2019-07-10 05:35:00 Test Item Value Reference Range Interpretation Comments Mean Corpuscular Hemoglobin Concent 33.0 32.0-36.0 (test code = Mean Corpuscular Hemoglobin Concent) [facility]2019-07-10 05:35:00 Test Item Value Reference Range Interpretation Comments Mean Corpuscular Hemoglobin (test 32.4 pg 27.0-35.0 code = Mean Corpuscular Hemoglobin) [facility]2019-07-10 05:35:00 Test Item Value Reference Range Interpretation Comments Lymphocytes % (test code = Lymphocytes 30.3 15.3-44.8 %) [facility]2019-07-10 05:35:00 Test Item Value Reference Range Interpretation Comments Hemoglobin (test code = Hemoglobin) 11.3 12.0-15.0 [facility]2019-07-10 05:35:00 Test Item Value Reference Range Interpretation Comments Hematocrit (test code = Hematocrit) 34.3 36.0-45.0 [facility]2019-07-10 05:35:00 Test Item Value Reference Range Interpretation Comments Eosinophils % (test code 8.8 See_Comment [A utomated message] The = Eosinophils %) system [facility] h generated this result tra nsmitted reference range : <=4.4. The reference r alba was not used to int erpret this result as normal/abnormal . [facility]2019-07-10 05:35:00 Test Item Value Reference Range Interpretation Comments Basophils % (test code 1.1 See_Comment [Aut omated message] The = Basophils %) system which generated this result tra nsmitted reference range : <=1.3. The reference r alba was not used to int erpret this result as normal/abnormal . [facility]2019-07-10 05:35:00 Test Item Value Reference Range Interpretation Comments Absolute Neutrophil (test code = 1.4 1.8-8.0 Absolute Neutrophil) [facility]2019-07-10 05:35:00 Test Item Value Reference Range Interpretation Comments Absolute Monocytes (CBC) (test code = 0.3 0.1-1.3 Absolute Monocytes (CBC)) [facility]2019-07-10 05:35:00 Test Item Value Reference Range Interpretation Comments Absolute Lymphocytes (CBC) (test code = 0.9 0.7-4.9 Absolute Lymphocytes (CBC)) [facility]2019-07-10 05:35:00 Test Item Value Reference Range Interpretation Comments Absolute Eosinophils 0.3 See_Comment [Autom ated message] The (CBC) (test code = system wh ich generated Absolute Eosinophils this re sult transmitted (CBC)) reference range : <=0.5. The reference r alba was not used to int erpret this result as normal/abnormal . [facility]2019-07-10 05:35:00 Test Item Value Reference Range Interpretation Comments Absolute Basophils 0.0 See_Comment [Automat ed message] The (CBC) (test code = system ich generated Absolute Basophils this resu lt transmitted (CBC)) reference range : <=0.5. The reference r alba was not used to int erpret this result as normal/abnormal . [facility]2019-07-09 05:43:00 Test Item Value Reference Range Interpretation Comments Prothrombin Time (test code = 12.9 9.5-12.5 Prothrombin Time) [facility]2019-07-09 05:43:00 Test Item Value Reference Range Interpretation Comments INR International Normalized Ratio 1.10 1 (test code = INR International Normalized Ratio) [facility]2019-07-09 05:43:00 Test Item Value Reference Range Interpretation Comments Triglycerides Level (test code = 89 Triglycerides Level) [facility]2019-07-09 05:43:00 Test Item Value Reference Range Interpretation Comments Phosphorus Level (test code = 6.3 2.5-4.9 Phosphorus Level) [facility]2019-07-09 05:43:00 Test Item Value Reference Range Interpretation Comments Magnesium Level (test code = Magnesium 2.3 1.8-2.4 Level) [facility]2019-07-09 05:43:00 Test Item Value Reference Range Interpretation Comments LDL Cholesterol, Calculated (test code 47 1 = LDL Cholesterol, Calculated) [facility]2019-07-09 05:43:00 Test Item Value Reference Range Interpretation Comments HDL Cholesterol (test code = HDL 57 40-60 Cholesterol) [facility]2019-07-09 05:43:00 Test Item Value Reference Range Interpretation Comments Cholesterol/HDL Ratio (test code = 2.14 1 Cholesterol/HDL Ratio) [facility]2019-07-09 05:43:00 Test Item Value Reference Range Interpretation Comments Cholesterol Level (test code = 122 Cholesterol Level) [facility]2019-07-08 19:49:00 Test Item Value Reference Range Interpretation Comments Troponin I (test code = 0.59 See_Comment [Au tomated message] The Troponin I) system which ge nerated this result tra nsmitted reference range : <=0.045. The reference r alba was not used to int erpret this result as normal/abnormal . [facility]2019-07-08 12:50:00 Test Item Value Reference Range Interpretation Comments Hepatitis B Surface Hepatitis B Surface Antigen (test code = Antigen Hepatitis B Surface Antigen) [facility]2019-07-08 12:50:00 Test Item Value Reference Range Interpretation Comments Hepatitis B Surface Hepatitis B Surface Antibody (test code = Antibody Hepatitis B Surface Antibody) [facility]2019-07-08 12:50:00 Test Item Value Reference Range Interpretation Comments Hepatitis B Core Total Hepatitis B Core Total Antibody (test code = Antibody Hepatitis B Core Total Antibody) [facility]2019-07-08 12:50:00 Test Item Value Reference Range Interpretation Comments Hepatitis C Antibody Hepatitis C Antibody (test code = Hepatitis C Antibody) [facility] 12:50:00 Test Item Value Reference Range Interpretation Comments Hepatitis C Ab Signal/Cutoff Ratio 0.05 ratio (test code = Hepatitis C Ab Signal/Cutoff Ratio) [facility]2019-07-08 07:36:00 Test Item Value Reference Range Interpretation Comments Rapid Troponin I (test 0.66 See_Comment [Aut omated message] The code = Rapid Troponin system which generated I) this result tra nsmitted reference range : <=0.045. The reference r alba was not used to int erpret this result as normal/abnormal . [facility]2019-07-08 07:36:00 Test Item Value Reference Range Interpretation Comments ND-Jhi-R-Type Natriuretic Peptide (test 77714 code = ID-Jat-A-Type Natriuretic Peptide) [facility] Notes Date/Time Note Provider Source 2021-07-01 00:19:36-00:00 KRZYSZTOF RY[facility] OPERATIVE/PROCEDURE REPORT JAK MERRILL FACILITY: [facility] Billing #: [id number] Room: [address] [place] [address] MR #: [id number] : 1955 DATE OF PROCEDURE: 06/30/2021 SURGEON: [...] All catheter sheaths were removed. No complications. QUIQUE/EVAN /[id number] 2021-06-18 18:51:18-00:00 LOGAN [facility] OPERATIVE/PROCEDURE REPORT JAK MERRILL FACILITY: [facility] Billing #: [id number] Room: [place] [address] MR #: [id number] : 1955 DATE OF PROCEDURE: 06/18/2021 SURGEON: [...] hemodialysis catheter, and ultrasound of femoral vein. [employer]ER: Carol Parisi MD. ANESTHETIC: General endotracheal. SECOND TERRAZZO TILE SETTER: Christopher Alvarez. Note: Dr. Parisi was required [...] Seldin gary technique and then placed a 5-Mohawk catheter and then up- sheath to a [...] not indicated for cardiac surgical proce dures. HARRIETT/MODL /[id number]
[2022-09-16 14:53] LABS: Protime INR 1.27
[2022-09-16 15:15] LABS: ALT/SGPT 25 U/L (13-56); Albumin 3.1 g/dL (3.4-5.0); Alkaline Phosphatase 136 U/L (45-117); BUN Blood Urea Nitrogen 33 mg/dL (7-18); Bicarbonate 24 mEq/L (21-32); Bilirubin Total 0.6 mg/dL (0.2-1.0); Glomerular Filtration Rate 13 ml/min (=/>90); Glucose Level 161 mg/dL (74-106); Protein, Total 8.8 g/dL (6.4-8.2); Sodium Level 130 mEq/L (136-145)
[2022-09-16 15:16] LABS: AST/SGOT 56 U/L (15-37); Potassium 5.2 mEq/L (3.5-5.1)
[2022-09-16 15:21] LABS: Troponin High Sensitivity 667.7 pg/mL (<58.9)
[2022-09-16 16:03] LABS: NT PRO-BNP > 175000 pg/mL (<125)
--- NOTE | 2022-09-16 17:26 | ER ---
Nurse's Notes [facility] Name: Qiana Valdez Age: 67 yrs Sex: Female : 1955 Arrival Date: 09/16/2022 Time: 14:01 Bed 18 Private MD: Diagnosis: Acute pulmonary edema;Acute and chronic respiratory failure Presentation: 09/16 14:21 Chief complaint: Patient states: SOB EMS states: SOB. Initial Sepsis Screen: Does the ml4 patient meet any 2 criteria? HR > 90 bpm. Risk Assessment: Do you want to hurt yourself or someone else? Patient reports no desire to harm self or others. Onset of symptoms was September 16, 2022. Activity prior to arrival: None. 14:21 Method Of Arrival: Stretcher ml4 14:21 Method Of Arrival: EMS: [facility] ml4 14:21 Acuity: SIXTO 2 ml4 14:31 Coronavirus screen: shortness of breath. Ebola Screen: No symptoms or risks identified ml4 at this time. Initial Sepsis Screen: Does the patient have a suspected source of infection? No. Patient's initial sepsis screen is negative. 14:32 Chief complaint: Patient states: Shortness of Breath. ml4 Triage Assessment: 14:23 General: Appears in no apparent distress. uncomfortable, Behavior is calm, cooperative, ml4 appropriate for age, Reports fatigue for 12-24 hours, Denies fever, chills. Pain: Denies pain. Neuro: No deficits noted. Denies blurred vision dizziness, numbness headache. Respiratory: Reports shortness of breath at rest on exertion Airway is patent Respiratory effort is even, unlabored, Respiratory pattern is regular, symmetrical. GI: No deficits noted. : No deficits noted. - Immunization history:: Adult Immunizations. - Social history:: Patient/guardian denies using Smoking status: Patient denies any tobacco usage or history of. Screenin:27 [facility] ED Fall Risk Assessment (Adult) History of falling in the last 3 months, ml4 including since admission No falls in past 3 months (0 pts) Confusion or Disorientation No (0 pts) Intoxicated or Sedated No (0 pts) Impaired Gait No (0 pts) Mobility Assist Device Used No (0 pt) Altered Elimination No (0 pt) Score/Fall Risk Level 0 - 2 = Low Risk. Abuse screen: Denies threats or abuse. Nutritional screening: No deficits noted. Tuberculosis screening: No symptoms or risk factors identified. Assessment: 14:29 Reassessment: see triage documentation. General:. ml4 Vital Signs: 14:26 BP 119 / 90; Pulse 94; Resp 22; Temp 97.9(O); Pulse Ox 90% on 5 lpm NC; Pain 2/10; ml4 15:29 BP 129 / 87; Pulse 106; Resp 18; Pulse Ox 94% on 5 lpm NC; ld1 16:37 BP 129 / 84; Pulse 95; Resp 20; Pulse Ox 90% 5 lpm ; Pain 0/10; ml4 14:26 Pain Scale: Adult ml4 16:37 Pain Scale: Adult ml4 ED Course: 14:06 Patient arrived in ED. ld1 14:06 Ang Pineda MD is Attending Physician. bs3 14:17 Leslie Bills, RN is Primary Nurse. ld1 14:21 Primary Nurse role handed off by Leslie Bills, RN ml4 14:21 SUNITA TrippIII, Lowell, RN is Primary Nurse. ml4 14:22 Triage completed. ml4 14:27 Arm band placed on right wrist. Patient placed in the treatment room, on a stretcher, ml4 on oxygen, on playground monitor, on pulse oximetry. EKG completed in triage. Results shown to MD. Antipyretics given from triage as ordered by an ER provider. EKG done per protocol. Performed by ED Staff. Shown to ED physician. Family accompanied patient. 14:28 No provider procedures requiring assistance completed. Inserted saline lock: 20 gauge ml4 in left forearm, using aseptic technique. Oxygen administration via nasal cannula \T\ 5L/min. 14:29 No apparent distress. Awaiting lab results, Awaiting radiology results. ml4 14:31 Patient has correct armband on for positive identification. Placed in gown. Bed in low ml4 position. Call light in reach. Side rails up X2. Adult w/ patient. Client placed on continuous cardiac and pulse oximetry monitoring. NIBP monitoring applied. monitor technician on. Pulse ox on. Door closed. Warm blanket given. Head of bed elevated. Repositioned patient. 14:33 XRAY Chest (1 view) In Process Unspecified. EDMS 14:35 Blood Culture Adult (2) Sent. ml4 14:35 Lactate w/ 2H reflex if indic. Sent. ml4 14:35 Protime (+inr) Sent. ml4 14:35 Ptt, Activated Sent. ml4 14:36 CMP Sent. ml4 14:36 CBC with Diff Sent. ml4 14:36 NT PRO-BNP Sent. ml4 14:36 Troponin HS Sent. ml4 17:25 Kalyan Lennon is Hospitalizing Provider. bs3 17:53 Troponin HS Sent. ml4 18:33 Bed in low position. Call light in reach. Side rails up X2. Client placed on continuous ml4 cardiac and pulse oximetry monitoring. NIBP monitoring applied. monitor technician on. Pulse ox on. Door closed. Warm blanket given. Head of bed elevated. Patient is placed in psych hold. 21:57 Patient admitted, IV remains in place. ha1 Administered Medications: 14:35 Drug: NS 0.9% IV 250 ml Route: IV; Rate: 1 bolus; Site: left forearm; ml4 17:53 Drug: Aspirin PO Chewable Tablet 324 mg Route: PO; ml4 Medication: 14:30 VIS not applicable for this client. ml4 Outcome: 17:25 Decision to Hospitalize by Provider. bs3 21:57 Admitted to Tele accompanied by tech, via wheelchair, room 409, with oxygen, with ha1 chart, Report called to Yoli Sinclair RN 21:57 Condition: stable 21:57 Discharge instructions given to patient, Instructed on the need for admit, Demonstrated understanding of instructions. 21:58 Patient left the ED. ha1 Signatures: Dispatcher [employer] EDMS Leslie Bills RN RN ld1 Jodi Moss RN RN ha1 Ang Pineda MD MD bs3 Qasim, SUNITAIII, Lowell, RN RN ml4 Corrections: (The following items were deleted from the chart) 14:23 14:23 PMHx: Diabetes - IDDM; ml4 ml4 14:23 14:23 PMHx: ESRD; ml4 ml4 14:23 14:23 PMHx: Hypertension; ml4 ml4 14:23 14:23 PMHx: Chronic ischemic heart disease; ml4 ml4 14:23 14:23 PMHx: IRON DEFICIENCY ANEMIA; ml4 ml4 14:23 14:23 PMHx: hyperparathyroidism; ml4 ml4 14:23 14:23 PMHx: GERD; ml4 ml4 14: 14:23 PMHx: High Cholesterol; ml4 ml4 14: 14:23 PMHx: Myocardial infarction; ml4 ml4 14: 14:23 PMHx: DIALYSIS MWF; ml4 ml4 14: 14:23 PMHx: Pacemaker; ml4 ml4 14: 14:23 PSHx: Coronary artery bypass graft; ml4 ml4 15:30 15:29 BP 129 / 87; Pulse 106bpm; Resp 18bpm; Pulse Ox 94% RA; ld1 ld1
--- NOTE | 2022-09-16 17:26 | EDPHYS ---
Physician Documentation [facility] Name: Qiana Valdez Age: 67 yrs Sex: Female : 1955 Arrival Date: 09/16/2022 Time: 14:01 Bed 18 Private MD: ED Physician Ang Pineda HPI: 09/16 16:51 This 67 yrs old Female presents to ER via EMS with complaints of Shortness Of bs3 Breath, General Weakness. 16:51 This 67 yrs old Female presents to ER via EMS with complaints of Shortness Of bs3 Breath, General Weakness. 16:51 67-year-old female history of CAD, CHF, status post pacemaker, ESRD Tuesday bs3 Tuesday chronic oxygen use presents with shortness of breath today he notes been progressive and getting worse she reports increased oxygen demand over the last day no fevers or chills no nausea vomiting or abdominal pain per daughter she normally lives at 3 L per required a little bit more today. - Immunization history:: Adult Immunizations. - Social history:: Patient/guardian denies using Smoking status: Patient denies any tobacco usage or history of. ROS: 16:51 Constitutional: Negative for fever, chills bs3 16:51 All other systems are negative. Exam: 16:51 Constitutional: Patient appears chronically ill slight tachypnea Head/Face: bs3 Normocephalic, atraumatic. Eyes: Pupils equal round and reactive to light, extra-ocular motions intact. Lids and lashes normal. ENT: mmm, no posterior phyarngeal erythema Neck: Trachea midline, no thyromegaly, no neck stiffness Chest/axilla: Normal chest wall appearance and motion. Nontender with no deformity. No lesions are appreciated. Cardiovascular: Tachycardic, no murmur 16:51 EKG is atrial flutter 123 with ventricular escape beat right bundle branch block no ST elevations or depressions 16:51 Respiratory: Tachypnea, rhonchi Abdomen/GI: Soft, non-tender, no rebound or guarding bs3 MS/ Extremity: Pulses equal, no cyanosis. Neurovascular intact. Full, normal range of motion. Neuro: Awake and alert, GCS 15, oriented to person, place, time, and situation. Cranial nerves II-XII grossly intact. Motor strength 5/5 in all extremities. Sensory grossly intact. Psych: Awake, alert, with orientation to person, place and time. Behavior, mood, and affect are within normal limits. Vital Signs: 14:26 BP 119 / 90; Pulse 94; Resp 22; Temp 97.9(O); Pulse Ox 90% on 5 lpm NC; Pain 2/10; ml4 15:29 BP 129 / 87; Pulse 106; Resp 18; Pulse Ox 94% on 5 lpm NC; ld1 16:37 BP 129 / 84; Pulse 95; Resp 20; Pulse Ox 90% 5 lpm ; Pain 0/10; ml4 14:26 Pain Scale: Adult ml4 16:37 Pain Scale: Adult ml4 MDM: 14:06 Patient medically screened. bs3 16:51 Data reviewed: vital signs, nurses notes. ED course: Patient with worsening shortness bs3 of breath likely secondary to increased fluid given her heart failure we will check labs we will do serial exams will evaluate for sepsis and reassess x-ray concerning for worsening pulmonary edema patient likely requires inpatient dialysis given increased oxygen will admit for further work-up. 17:23 ED course: Admission requested 5:03 PM. bs3 17:31 ED course: Pt not on ac as has a hx of severe bleeds.. bs3 09/16 14:09 Order name: CBC with Diff; Complete Time: 15:04 bs3 09/16 14:09 Order name: NT PRO-BNP; Complete Time: 16:17 bs3 09/16 14:09 Order name: Troponin HS; Complete Time: 16:17 bs3 09/16 14:09 Order name: CMP; Complete Time: 16:17 bs3 09/16 14:09 Order name: Blood Culture Adult (2) bs3 09/16 14:09 Order name: Lactate w/ 2H reflex if indic.; Complete Time: 15:18 bs3 09/16 14:09 Order name: Protime (+inr); Complete Time: 15:04 bs3 09/16 14:09 Order name: Ptt, Activated; Complete Time: 15:04 bs3 09/16 17:33 Order name: Troponin HS; Complete Time: 19:00 ml4 09/16 20:17 Order name: Glucose, Ancillary Testing; Complete Time: 20:23 EDMS 09/16 14:09 Order name: XRAY Chest (1 view); Complete Time: 15:04 bs3 09/16 14:09 Order name: EKG; Complete Time: 14:10 bs3 09/16 18:35 Order name: Diet Renal; Complete Time: 18:35 ml4 09/16 14:09 Order name: Cardiac monitoring; Complete Time: 14:17 bs3 09/16 14:09 Order name: EKG - Nurse/Tech; Complete Time: 14:17 bs3 09/16 14:09 Order name: IV Saline Lock; Complete Time: 14:33 bs3 09/16 14:09 Order name: Labs collected and sent; Complete Time: 14:33 bs3 09/16 14:09 Order name: O2 Per Protocol; Complete Time: 14:18 bs3 09/16 14:09 Order name: O2 Sat Monitoring; Complete Time: 14:18 bs3 09/16 14:09 Order name: Accucheck; Complete Time: 14:40 bs3 09/16 14:09 Order name: Vital Signs; Complete Time: 14:17 bs3 09/16 14:38 Order name: EKG - Nurse/Tech; Complete Time: 14:40 bs3 Administered Medications: 14:35 Drug: NS 0.9% IV 250 ml Route: IV; Rate: 1 bolus; Site: left forearm; ml4 17:53 Drug: Aspirin PO Chewable Tablet 324 mg Route: PO; ml4 Disposition Summary: 09/16/22 17:25 Hospitalization Ordered Hospitalization Status: Observation bs3 Provider: Kalyan Lennon bs3 Condition: Fair bs3 Problem: an acute exacerbation bs3 Symptoms: have improved bs3 Bed/Room Type: Standard bs3 Location: Telemetry/MedSurg (observation)(09/16/22 21:31) Room Assignment: 409(09/16/22 21:31) kl Diagnosis - Acute pulmonary edema bs3 - Acute and chronic respiratory failure bs3 Forms: - Medication Reconciliation Form bs3 - SBAR form bs3 Signatures: Dispatcher [employer] Yanira Yarbrough RN RN kl Stein, Brandon, MD MD bs3 Reny Hung PA-C PA-C sb4 SUNITA TrippIII, Lowell RN RN ml4 Corrections: (The following items were deleted from the chart) 14:23 14:23 PMHx: Diabetes - IDDM; ml4 ml4 14:23 14:23 PMHx: ESRD; ml4 ml4 14: 14:23 PMHx: Hypertension; ml4 ml4 14:23 14:23 PMHx: Chronic ischemic heart disease; ml4 ml4 14: 14:23 PMHx: IRON DEFICIENCY ANEMIA; ml4 ml4 14: 14:23 PMHx: hyperparathyroidism; ml4 ml4 14: 14:23 PMHx: GERD; ml4 ml4 14: 14:23 PMHx: High Cholesterol; ml4 ml4 14:23 14:23 PMHx: Myocardial infarction; ml4 ml4 14: 14:23 PMHx: DIALYSIS MWF; ml4 ml4 14: 14:23 PMHx: Pacemaker; ml4 ml4 14: 14:23 PSHx: Coronary artery bypass graft; ml4 ml4 20:23 17:25 Telemetry/MedSurg (observation) bs3 kl 20:23 17:25 3 kl 21:31 20:23 [facility] kl kl 21:31 20:23 kl kl
[2022-09-16] MEDS ORDERED: ASPIRIN 81 MG CHEWABLE TABLET ONE (17:46)
--- NOTE | 2022-09-16 19:09 | P.HP ---
Certification for Inpatient Patient admitted to: Observation With expected LOS: <2 Midnights Patient will require the following post-hospital care: None Practitioner: I am a practitioner with admitting privileges, knowledge of patient current condition, hospital course, and medical plan of care. Services: Services provided to patient in accordance with Admission requirements found in Title 42 Section 412.3 of the Code of Federal Regulations Patient History Date of Service: 09/16/22 Primary Care Provider: Manuel Reason for admission: Volume Overload, ESRD History of Present Illness: Ms. Valdez is a 67-year-old female with past medical history of ESRD on HD MWF, afib, CHF, HTN, NIDDM, CAD s/p CABGx2, and anemia who presented to the emergency department with complaints of progressively worsening shortness of breath and increasing O2 requirement. her baseline is 3L NC but she is currently requiring 5L NC. Today her labs are significant for hemoglobin 11.1, hematocrit 33.8, BNP > 799974, sodium 129, troponin 667 (although chronically elevated). She denies any chest pain, fever, nausea, vomiting, abdominal pain. Chest xray showed "Moderate chronic right pleural effusion is noted. Increased opacification of the right upper lobe may indicate pulmonary edema. The heart is moderately enlarged. Sternotomy wires. Dual lead pacer device noted." ED provider wishes to admit patient for further management. Allergies No Known Allergies Allergy (Verified 04/02/22 00:05) Home medications list reviewed: Yes Home Medications: Sucroferric Oxyhydroxide [Velphoro] 1,000 mg PO TIDWM 04/01/22 Trazodone [Desyrel*] 50 mg PO BEDTIME 04/01/22 Metoprolol Tartrate 100 mg PO BID 05/31/22 NIFEdipine [Nifedipine ER] 60 mg PO DAILY 05/31/22 Isosorbide Mononitrate [Isosorbide Mononitrate ER] 60 mg PO DAILY 06/25/22 Aspirin [Aspirin EC 81 MG] 81 mg PO DAILY #30 tab 06/28/22 Atorvastatin Calcium [Lipitor] 40 mg PO BEDTIME #30 tab 06/28/22 Dicyclomine HCl 20 mg PO QID PRN 07/21/22 - Past Medical/Surgical History Diabetic: Yes -: Hypertension -: Type 2 Diabetes Mellitus, Non-Insulin Dependent -: ESRD - MWF -: CAD with prior stent S/P CABG -: Hyperlipidemia -: GERD -: Anemia of chronic disease with iron deficiency -: Hyperparathyroidism -: Diabetic neuropathy -: Triple bypass -: Pacemaker -: Tubal ligation -: Fistula aneursym reconstruction 4 times -: Bilateral cataract surgery Psychosocial/ Personal History: Lives at home with daughter - Family History Mother -: Heart disease, Diabetes Father -: Heart disease, Diabetes - Social History Smoking Status: Never smoker Alcohol use: No CD- Drugs: No Caffeine use: Yes Place of Residence: Home Review of Systems Respiratory: Shortness of Breath Physical Examination - Vital Signs Temperature: 97.9 F Blood Pressure: 129/84 Pulse: 95 Respirations: 20 Pulse Ox (%): 90 (5L NC) - Physical Exam General: Alert, In no apparent distress HEENT: Atraumatic, EOMI, Sclerae nonicteric Neck: Supple, 2+ carotid pulse no bruit Respiratory: Clear to auscultation bilaterally, Normal air movement Cardiovascular: Regular rate/rhythm, Normal S1 S2 Gastrointestinal: Normal bowel sounds, No tenderness Musculoskeletal: No tenderness Integumentary: No rashes Neurological: Normal speech, Normal affect - Studies Laboratory Data (last 24 hrs) 09/16/22 14:18: PT 14.0 H, INR 1.27, APTT 31.2 09/16/22 14:18: Sodium 130 L, Potassium 5.2 H, BUN 33 H, Creatinine 3.80 H, Glucose 161 H, Total Bilirubin 0.6, AST 56 H, ALT 25, Alkaline Phosphatase 136 H 09/16/22 14:18: WBC 5.60, Hgb 9.1 L, Hct 28.3 L, Plt Count 133 L Assessment and Plan - Problems (Diagnosis) (1) Chronic diastolic heart failure Current Visit: Yes Status: Chronic (2) Elevated troponin Current Visit: Yes Status: Acute (3) Fluid overload Current Visit: Yes Status: Acute Qualifiers: Hypervolemia type: unspecified Qualified Code(s): E87.70 - Fluid overload, unspecified (4) CAD (coronary artery disease) Current Visit: Yes Status: Chronic Qualifiers: Coronary Disease-Associated Artery/Lesion type: bypass graft [place] vs. 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 Increased O2 requirement at this time. Will likely resolve after dialysis. Nephrology consulted for HD. Last received on Tuesday. Troponin elevated at 667 -> 673. Chronically elevated, but slightly higher now. No chest pain. likely demand ischemia. Monitor on telemetry. Consult cardiology. Daily aspirin and statin. ACHS accu checks with mild sliding scale and renal diet. She states she cannot be on any anticoagulation due to history of severe bleeding. Monitor and replete electrolytes per protocol. Reconcile and continue home medications. SCDs for VTE prophylaxis. Full code. Discharge Plan: Home Plan to discharge in: 24 Hours - Advance Directives Does patient have a Living Will: No Does patient have a Durable POA for Healthcare: No - Code Status/Comfort Care Code Status Assessed: Yes Code Status: Full Code Physician Review: Patient Assessed, Agree with Above Assessment and Plan Critical Care: No Time Spent Managing Pts Care (In Minutes): 50
[2022-09-16] MEDS ORDERED: ALBUTEROL 2.5 MG/3 ML NEB SOL NEB PRN (19:37)
[2022-09-16] MEDS ORDERED: ONDANSETRON 4 MG/2 ML VIAL IV PRN (19:37)
[2022-09-16] MEDS: ACETAMINOPHEN 500 MG TAB PO PRN (20:13)
[2022-09-16] MEDS: INSULIN -REGULAR HUMAN 50 UNIT/0.5 ML ML SQ SCH (20:13)
[2022-09-16] MEDS ORDERED: ACETAMINOPHEN 500 MG TAB ONE (20:15)
[2022-09-16 20:19] VITALS: BMI 24.3
[2022-09-17 04:09] LABS: Absolute Lymphocytes (CBC) 0.9 K/uL (0.7-4.9); Hematocrit 32.4 % (36.0-45.0); Lymphocytes % 27.6 % (15.3-44.8); MCV 99.9 fL (80-100); MPV 8.6 fL (7.6-11.3); RBC Red Blood Cell Count 3.25 M/uL (3.86-4.86)
[2022-09-17 04:33] LABS: Magnesium 2.6 mg/dL (1.6-2.4); Phosphorus 5.3 mg/dL (2.5-4.9); Potassium 4.1 mEq/L (3.5-5.1); Troponin High Sensitivity 709.8 pg/mL (<58.9)
[2022-09-17 04:43] LABS: Thyroid Stimulating Hormone 4.87 uIU/mL (0.358-3.740)
[2022-09-17] MEDS: INSULIN -REGULAR HUMAN 50 UNIT/0.5 ML ML SQ SCH ×4 (07:30→20:39)
[2022-09-17] MEDS ORDERED: PNEUMOCOCCAL VACCINE 0.5 ML IMVAC ONE (08:00)
[2022-09-17] MEDS: ACETAMINOPHEN 500 MG TAB PO PRN (11:06)
--- NOTE | 2022-09-17 12:09 | P.PN ---
Subjective Date of Service: 09/17/22 Primary Care Provider: Manuel Chief Complaint: Volume Overload, ESRD Patient reports shortness of breath. She denies any chest pain. She denies any fever. Patient is currently maintained on 5 L oxygen by nasal cannula. Physical Examination - Vital Signs Temperature: 97.8 F Blood Pressure: 125/78 Pulse: 93 Respirations: 12 Pulse Ox (%): 91 - Physical Exam General: Alert, In no apparent distress, Oriented x3 HEENT: Mucous membr. moist/pink Respiratory: Diminished (On the right.), Crackles/rales ( Bib[place] crackles) Cardiovascular: No edema, Regular rate/rhythm, Normal S1 S2 Gastrointestinal: Normal bowel sounds, Soft and benign, No tenderness Musculoskeletal: No swelling, No tenderness Integumentary: No rashes, No cyanosis Neurological: Normal speech, Normal strength at 5/5 x4 extr - Studies Laboratory Data (last 24 hrs) 09/16/22 14:18: PT 14.0 H, INR 1.27, APTT 31.2 09/16/22 14:18: Sodium 130 L, Potassium 5.2 H, BUN 33 H, Creatinine 3.80 H, Glucose 161 H, Total Bilirubin 0.6, AST 56 H, ALT 25, Alkaline Phosphatase 136 H 09/16/22 14:18: WBC 5.60, Hgb 9.1 L, Hct 28.3 L, Plt Count 133 L Assessment And Plan - Current Problems (Diagnosis) (1) Acute on chronic diastolic heart failure Current Visit: Yes Status: Acute (2) Acute and chronic respiratory failure with hypoxia Current Visit: Yes Status: Acute (3) Elevated troponin Current Visit: Yes Status: Acute (4) Fluid overload Current Visit: Yes Status: Acute Qualifiers: Hypervolemia type: unspecified Qualified Code(s): E87.70 - Fluid overload, unspecified (5) CAD (coronary artery disease) Current Visit: Yes Status: Chronic Qualifiers: Coronary Disease-Associated Artery/Lesion type: bypass graft [place] vs. transplanted heart: [place] heart Associated angina: without angina Qualified Code(s): I25.810 - Atherosclerosis of coronary artery bypass graft(s) without angina pectoris (6) End-stage renal disease on hemodialysis Current Visit: Yes Status: Chronic (7) Type 2 diabetes mellitus Current Visit: Yes Status: Chronic Qualifiers: Diabetes mellitus press tender long goods insulin use: without fpc use Diabetes mellitus complication status: with hyperglycemia Qualified Code(s): E11.65 - Type 2 diabetes mellitus with hyperglycemia (8) Pleural effusion Current Visit: No Status: Acute (9) Pulmonary hypertension Current Visit: No Status: Acute - Plan Troponin elevated but trended flat. Patient has chronic right-sided pleural effusion. She denies missing dialysis. Nephrology consulted for HD. Patient planned for hemodialysis today. She has a history of severe coronary artery disease which is managed medically. Troponin elevated but trended flat. Monitor on telemetry. Consult cardiology. Daily aspirin and statin. ACHS accu checks with insulin sliding scale. Renal diet. She states she cannot be on any anticoagulation due to history of severe bleeding. Monitor and replete electrolytes per protocol. SCDs for VTE prophylaxis. Full code.
[2022-09-17 13:20] LABS: Magnesium 2.5 mg/dL (1.6-2.4)
[2022-09-17 13:46] LABS: Hepatitis B surface AG Interp. Nonreactive (Nonreactive)
--- NOTE | 2022-09-17 19:50 | P.CNS ---
Date of Consult: 09/17/22 Reason for Consult: ESRD Requesting Physician: jen singh Primary Care Provider: Manuel Chief Complaint: Volume Overload, ESRD History of Present Illness: 67F w/ PMHx of ESRD presumed to be secondary to hypertension and diabetes on HD MWF, afib, CHF, HTN, NIDDM, CAD s/p CABGx2, anemia, and renal osteodystrophy who p/w worsening shortness of breath and increasing O2 requirement. chest x-ray showed congestion. BNP significantly elevated. Troponin chronically elevated. She received HD today. Allergies No Known Allergies Allergy (Verified 04/02/22 00:05) Home Medications: Sucroferric Oxyhydroxide [Velphoro] 1,000 mg PO TIDWM 04/01/22 Trazodone [Desyrel*] 50 mg PO BEDTIME 04/01/22 Metoprolol Tartrate 100 mg PO BID 05/31/22 NIFEdipine [Nifedipine ER] 60 mg PO DAILY 05/31/22 Isosorbide Mononitrate [Isosorbide Mononitrate ER] 60 mg PO DAILY 06/25/22 Aspirin [Aspirin EC 81 MG] 81 mg PO DAILY #30 tab 06/28/22 Atorvastatin Calcium [Lipitor] 40 mg PO BEDTIME #30 tab 06/28/22 Dicyclomine HCl 20 mg PO QID PRN 07/21/22 - Past Medical/Surgical History Diabetic: Yes -: Hypertension -: Type 2 Diabetes Mellitus, Non-Insulin Dependent -: ESRD - MWF -: CAD with prior stent S/P CABG -: Hyperlipidemia -: GERD -: Anemia of chronic disease with iron deficiency -: Hyperparathyroidism -: Diabetic neuropathy -: Triple bypass -: Pacemaker -: Tubal ligation -: Fistula aneursym reconstruction 4 times -: Bilateral cataract surgery Psychosocial/ Personal History: Lives at home with daughter - Family History Mother Medical History: Heart disease, Diabetes Father Medical History: Heart disease, Diabetes - Social History Smoking Status: Unknown if ever smoked Alcohol use: No CD- Drugs: No Caffeine use: Yes Place of Residence: Home Review of Systems General: Weakness Eyes: Unremarkable ENT: Unremarkable Respiratory: Shortness of Breath, SOB with Excertion Cardiovascular: Unremarkable Gastrointestinal: Unremarkable Genitourinary: Unremarkable Musculoskeletal: Unremarkable Integumentary: Unremarkable Neurological: Unremarkable Lymphatics: Unremarkable Physical Examination Temp Pulse Resp BP Pulse Ox 96.9 F 90 16 161/85 H 94 09/17/22 16:00 09/17/22 16:00 09/17/22 16:00 09/17/22 16:00 09/17/22 16:00 General: Other (Chronically ill-appearing) HEENT: Atraumatic, Normocephalic Neck: Supple Respiratory: Other (symmetric chest expansion) Cardiovascular: No rubs, No murmurs Gastrointestinal: Soft and benign, No guarding Musculoskeletal: No clubbing Integumentary: No warmth Neurological: Normal tone Lymphatics: No axilla or inguinal lymphadenopathy Urinary: Other (no bladder distention) External genitalia: Deferred Rectal: Deferred Conclusions/Impression: # ESRD presumed to be secondary to hypertension and diabetes on HD MWF Received HD today # Acute respiratory failure secondary to acute on chronic diastolic heart failure Chest x-ray congested, BNP significantly elevated, troponin elevated HD as above # CAD, A. fib, chronic diastolic heart failure, pulmonary hypertension, chronic right-sided pleural effusion Continue cardioprudent medications Not on any coagulation therapy due to history of severe bleeding HD as above # Anemia Monitor CBC # Renal osteodystrophy Monitor serum calcium and phosphorus # DM type II Management per primary team
[2022-09-17] MEDS ORDERED: TRAZODONE 50 MG TABLET PO SCH (21:00)
[2022-09-17] MEDS ORDERED: ATORVASTATIN 40 MG TAB PO SCH (21:00)
[2022-09-18 04:16] LABS: Absolute Lymphocytes (CBC) 0.8 K/uL (0.7-4.9); Hematocrit 32.6 % (36.0-45.0); Lymphocytes % 21.4 % (15.3-44.8); MCV 98.5 fL (80-100); MPV 8.5 fL (7.6-11.3); RBC Red Blood Cell Count 3.31 M/uL (3.86-4.86)
[2022-09-18 04:34] LABS: Albumin 3.1 g/dL (3.4-5.0); Phosphorus 3.7 mg/dL (2.5-4.9); Potassium 3.7 mEq/L (3.5-5.1)
[2022-09-18] MEDS: INSULIN -REGULAR HUMAN 50 UNIT/0.5 ML ML SQ SCH ×2 (07:30→12:10)
[2022-09-18] MEDS ORDERED: ISOSORBIDE MONO SR 60 MG TAB PO SCH (09:00)
[2022-09-18] MEDS ORDERED: POTASSIUM CL SA 10 MEQ TAB PO ONE (12:00)
--- NOTE | 2022-09-18 12:03 | P.DS ---
Admission Date: 09/16/22 Discharge Date: 09/18/22 Primary Care Provider: Manuel Disposition: ROUTINE DISCHARGE Discharge Condition: FAIR Reason for Admission: Volume Overload, ESRD - Problems (1) Acute on chronic diastolic heart failure Current Visit: Yes Status: Acute (2) Acute and chronic respiratory failure with hypoxia Current Visit: Yes Status: Acute (3) Elevated troponin Current Visit: Yes Status: Acute (4) Fluid overload Current Visit: Yes Status: Acute Qualifiers: Hypervolemia type: unspecified Qualified Code(s): E87.70 - Fluid overload, unspecified (5) CAD (coronary artery disease) Current Visit: Yes Status: Chronic Qualifiers: Coronary Disease-Associated Artery/Lesion type: bypass graft [place] vs. transplanted heart: [place] heart Associated angina: without angina Qualified Code(s): I25.810 - Atherosclerosis of coronary artery bypass graft(s) without angina pectoris (6) End-stage renal disease on hemodialysis Current Visit: Yes Status: Chronic (7) Type 2 diabetes mellitus Current Visit: Yes Status: Chronic Qualifiers: Diabetes mellitus half-way insulin use: without half-way use Diabetes mellitus complication status: with hyperglycemia Qualified Code(s): E11.65 - Type 2 diabetes mellitus with hyperglycemia (8) Pleural effusion Current Visit: No Status: Acute (9) Pulmonary hypertension Current Visit: No Status: Acute Brief History of Present Illness: Ms. Valdez is a 67-year-old female with past medical history of ESRD on HD MWF, afib, CHF, HTN, NIDDM, CAD s/p CABGx2, and anemia who presented to the emergency department with complaints of progressively worsening shortness of breath and increasing O2 requirement. her baseline is 3L NC but she was requiring 5L NC in the ED. Her labs were significant for hemoglobin 11.1, hematocrit 33.8, BNP > 189848, sodium 129, troponin 667 (although chronically elevated). She denies any chest pain, fever, nausea, vomiting, abdominal pain. Chest xray showed "Moderate chronic right pleural effusion is noted. Increased opacification of the right upper lobe may indicate pulmonary edema. The heart is moderately enlarged. Sternotomy wires. Dual lead pacer device noted." Patient was admitted for further management. Hospital Course: Patient admitted to the medical floor Troponin was elevated but trended flat indicating demand ischemia and decreased clearance due to CKD. Patient has chronic right-sided pleural effusion. She denies missing dialysis. Nephrology consulted for HD. Patient underwent hemodialysis. She has a history of severe coronary artery disease which is managed medically. Patient treated with daily aspirin and statin. Blood sugar was managed with ACHS accu checks with insulin sliding scale. She tolerated renal diet. She states she cannot be on any anticoagulation due to history of severe bleeding. Patient respiratory status improved to baseline after hemodialysis. She currently has no complaint, has good oxygen saturation on her baseline oxygen 3 L by nasal cannula, she is ambulatory without shortness of breath. She has clinically improved baseline. Vital Signs/Physical Exam: Temp Pulse Resp BP Pulse Ox 97.9 F 87 18 150/84 H 98 09/18/22 08:00 09/18/22 08:00 09/18/22 08:00 09/18/22 08:00 09/18/22 08:00 General: Alert, In no apparent distress, Oriented x3 HEENT: Mucous membr. moist/pink Neck: JVD not distended Respiratory: Clear to auscultation bilaterally, Diminished (Right lower region) Cardiovascular: No edema, Regular rate/rhythm, Normal S1 S2 Gastrointestinal: Normal bowel sounds, Soft and benign, Non-distended Musculoskeletal: Other (Right forearm AV fistula) Integumentary: No rashes, No cyanosis Neurological: Normal strength at 5/5 x4 extr Laboratory Data at Discharge: WBC 3.70 thou/uL (4.3-10.9) L 09/18/22 03:53 Hgb 10.5 g/dL (12.0-15.0) L 09/18/22 03:53 Hct 32.6 % (36.0-45.0) L 09/18/22 03:53 Plt Count 96 thou/uL (152-406) L 09/18/22 03:53 PT 14.0 SECONDS (9.5-12.5) H 09/16/22 14:18 INR 1.27 09/16/22 14:18 APTT 31.2 SECONDS (24.3-36.9) 09/16/22 14:18 Sodium 132 mEq/L (136-145) L 09/18/22 03:53 Potassium 3.7 mEq/L (3.5-5.1) 09/18/22 03:53 BUN 32 mg/dL (7-18) H 09/18/22 03:53 Creatinine 3.55 mg/dL (0.55-1.02) H 09/18/22 03:53 Glucose 145 mg/dL (74-106) H 09/18/22 03:53 Phosphorus 3.7 mg/dL (2.5-4.9) 09/18/22 03:53 Magnesium 2.5 mg/dL (1.6-2.4) H 09/17/22 12:42 Total Bilirubin 0.6 mg/dL (0.2-1.0) 09/16/22 14:18 AST 56 U/L (15-37) H 09/16/22 14:18 ALT 25 U/L (13-56) 09/16/22 14:18 Alkaline Phosphatase 136 U/L (45-117) H 09/16/22 14:18 Triglycerides 92 mg/dL (<150) 09/17/22 03:42 Cholesterol 112 mg/dL (<200) 09/17/22 03:42 HDL Cholesterol 43 mg/dL (40-60) 09/17/22 03:42 Cholesterol/HDL Ratio 2.60 09/17/22 03:42 Home Medications: Sucroferric Oxyhydroxide [Velphoro] 1,000 mg PO TIDWM 04/01/22 Trazodone [Desyrel*] 50 mg PO BEDTIME 04/01/22 Metoprolol Tartrate 100 mg PO BID 05/31/22 NIFEdipine [Nifedipine ER] 60 mg PO DAILY 05/31/22 Isosorbide Mononitrate [Isosorbide Mononitrate ER] 60 mg PO DAILY 06/25/22 Aspirin [Aspirin EC 81 MG] 81 mg PO DAILY #30 tab 06/28/22 Atorvastatin Calcium [Lipitor] 40 mg PO BEDTIME #30 tab 06/28/22 Dicyclomine HCl 20 mg PO QID PRN 07/21/22 Diet: AHA Activity: Ad cory Followup: NONE,NONE [Primary Care Provider] - 1-2 Weeks Time spent managing pt's care (in minutes): 35
[2022-09-18 12:15] VITALS: BP 160/89; TEMP 98.1
[2022-09-18 12:35] VITALS: O2SAT 97
--- NOTE | 2022-09-18 21:22 | PN ---
Date of Progress Note: 09/18/2022 Chief Complaint: End-stage renal disease, fluid overload, uncontrolled hypertension. Patient has en d-stage renal disease, presumed to be secondary to hypertension and diabetes. She has been dialyzed on Tuesday, Tuesday, Tuesday. She has congestive heart failure, coronary artery disease status post CABG, renal osteodystrophy. The patient presented with worsening of shortness of breath, increasing requirement with O2. Chest x-ray showed congestion, interstitial pulmonary edema. Review of Systems: Denies chest pain, palpitation. Physical Examination: Lungs: Few rhonchi. Heart: S1, S2. Abdomen: Soft. Extremities: Minimal edema in both legs. Impression And Plan: 1.Congestive heart failure exacerbation, fluid overload, acute respiratory failure secondary to acut e on chronic diastolic congestive heart failure. Chest x-ray showed congestion. BNP significantly e levated and troponin elevated. Patient received hemodialysis yesterday. Patient is feeling better t tenzin. She denies complaints. Coronary artery disease, atrial fibrillation, chronic diastolic conges tive heart failure, pulmonary hypertension, chronic right-sided pleural effusion. Continue medicatio n for blood pressure control. 2.Anemia. Monitor CBC. Adjust MELA as needed. 3.Renal osteodystrophy. Monitor serum calcium and phosphorus. Continue binders and low phosphorus diet. EB/MODL Voice ID: [id number] Report ID: [id number]
--- NOTE | 2022-09-20 17:58 | EKG ---
Test Date: 2022-09-16 Test Time: 14:11:44 Yarn Finisher: Paola DRAPER MEASUREMENT RESULTS: Intervals: Rate: 123 [place]: 192 QRSD: 120 QT: 292 QTc: 418 [place]: P: 16 [place]: 192 QRS: 125 T: 255 INTERPRETIVE STATEMENTS: Demand pacemaker, interpretation is based on intrinsic rhythm Sinus tachycardia with premature ventricular complexes or fusion complexes Right bundle branch block T wave abnormality, consider inferolateral ischemia Abnormal ECG Electronically Signed On 09-20-22 17:52:48 CDT by Bradley Santamaria
== END 2022-09-18 13:12 | disposition home or self-care (01) | DRG 291 ==
LOC: ER 14:01 → ERHOLD 18:57 → 4TH 21:34 → OBSVTOIN 09-18 11:51
PROVIDERS: ADMIT Internal Medicine; ATTEND Internal Medicine
DX: I13.2 Hypertensive heart and chronic kidney disease with heart failure and with stage 5 chronic kidney disease, or end stage renal disease (principal); I50.33 Acute on chronic diastolic (congestive) heart failure; N18.6 End stage renal disease; J96.21 Acute and chronic respiratory failure with hypoxia; I25.810 Atherosclerosis of coronary artery bypass graft(s) without angina pectoris; I24.8 Other forms of acute ischemic heart disease; E11.22 Type 2 diabetes mellitus with diabetic chronic kidney disease; E11.65 Type 2 diabetes mellitus with hyperglycemia; E11.40 Type 2 diabetes mellitus with diabetic neuropathy, unspecified; D63.1 Anemia in chronic kidney disease; E78.5 Hyperlipidemia, unspecified; N25.0 Renal osteodystrophy; I27.20 Pulmonary hypertension, unspecified; I48.91 Unspecified atrial fibrillation; K21.9 Gastro-esophageal reflux disease without esophagitis; R77.8 Other specified abnormalities of plasma proteins; Z95.0 Presence of cardiac pacemaker; Z99.2 Dependence on renal dialysis; Z95.2 Presence of prosthetic heart valve; Z98.51 Tubal ligation status; Z79.82 Long term (current) use of aspirin; Z79.899 Other long term (current) drug therapy
CPT/HCPCS: 36415; 71045; 80048; 80053; 80061; 80069; 82550; 82947; 83605; 83735; 83880; 84100; 84439; 84443; 84484; 85025; 85610; 85730; 87040; 87340; 90935; 93005; 94760; 96374; 99285; G0378; J1815; J7050

== ENCOUNTER 2022-09-20 11:10 | Inpatient (IN) | payer OTHER ==
[2022-09-20 11:50] LABS: Absolute Lymphocytes (CBC) 1.1 K/uL (0.7-4.9); Lymphocytes % 25.5 % (15.3-44.8); MCV 99.4 fL (80-100); MPV 8.7 fL (7.6-11.3); RBC Red Blood Cell Count 3.42 M/uL (3.86-4.86)
--- OUTSIDE RECORDS SUMMARY | 2022-09-20 12:01 | XMS REPORT | Continuity of Care Document ---
:1955 Author Organization [facility] t Address [address] [facility] [address] [place] [address] Care Team Providers Name Role Phone Dianna Nunes MD, Wild Noel Primary Care Physician [phone] ANGELA LOCO Attending Clinician Unavail able FRACISCO HAYDEN Attending Clinician Unavailable Adele Whitney Attending Clinician Doctor Unassigned, [place] Attending Clinician Unavailable Fracisco Hayden MD Attending [...] Beronica TRUJILLO, Angela Torres Attending Clinician [phone] Mitchel TRUJILLO, Nicola Thomas Attending Clinician Ju TRUJILLO, Krzysztof Biggs Attending Clinician Marissa TRUJILLO, Fadia Smith Attending Clinician Max TRUJILLO, Asad Whitman Attending Clinician [phone] Nikolay TRUJILLO, Vahid Mai Attending Clinician Ellie [...] Date Expiration Date S justice [employer] MEDICARE [id number] 2020 00:00:00 MEDICAID [facility] [id number] 2019 00:00:00 [employer]LL[employer]/AARP MCARE [id number] 2021 ADV CHOICE PPO 00:00:00 MEDICAID OF [place] [id number] 2018 00:00:00 MEDICARE PART A [id number] 2014 \\T\\ B 00:00:00 [place] [id number] 2020 HEALTHCARE/AARP 00:00:00 Problems Condition Condition Condition Status Onset Resolution Last Treating Co mments Source Name Details Category Date Date Treatment Clinician Date S/P MVR S/P MVR Disease Active Univers (mitral (mitral 09-29 ity of valve valve 00:00: [place] repair) repair) 00 Medical Branch S/P TVR S/P TVR Disease Active Univers (tricuspid (tricuspid 09-29 it y of valve valve 00:00: [place] repair) repair) 00 Medical Branch Endocardit Endocardit [...] nivers ia ia 6-03 ity of 00:00: [place] 00 Medical Branch Decreased Decreased Disease Active Uni vers appetite appetite 6-03 ity of 00:00: [place] [facility] Seizure Seizure Disease Active Univers 6-03 ity of 00:00: [place] [facility] 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 [place] 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 00 [facility] depressive depressive Br anch disorder, disorder, without without psychotic psychotic features features Generalize Generalize Disease Active U nivers d anxiety d anxiety 6 ity of disorder disorder 00:00: [place] 00 Medical Branch Panic Panic Disease Active Univers attacks attacks - ity of 00:00: [place] [facility] Encounter Encounter Disease Active Uni vers to to 08-28 it[facility] establish [facility] Hepatic Hepatic Disease Active Univers cirrhosis, cirrhosis, 08-28 it y of unspecifie unspecifie [place] hepatic 00 Medi yoel cirrhosis cirrhosis Bran ch type, type, unspecifie unspecifie d whether d whether ascites ascites present present E44.1 Mild E44.1 Mild Disease Active U nivers protein-ca protein-ca 4-05 it y of sadi sadi 00:00: [place] malnutriti malnutriti 00 Me dical on on Branch Hematochez Hematochez Disease Active U nivers ia ia 4-04 ity of 00:00: [place] 00 Medical Branch Moderate Moderate Disease Active [...] 3-17 [facility]: Medical 00 [place] Acute Acute Disease Active [facility] blood loss blood loss 3-17 [facility] anemia anemia 00:00: Medical 00 [place] Acute Acute Disease Active [facility] postoperat postoperat 3-17 [facility] cristela pain cristela pain 00:00: Medica l 00 Center MV MV Disease Active [facility] Endocardit Endocardit 3-17 [facility] is is 00:00: Medical 00 [place] Pulmonary Pulmonary Disease Recurre [facility] HTN (HCC), HTN (HCC), nce 3-17 [facility] kes PASP 65-70 PASP 65-70 00:00: Me dical 00 Center Acute Acute Disease Active [facility] encephalop encephalop 3-12 [facility] k[facility] athy athy 00:00: [facility] 00 [place] HTN HTN Disease Active [facility] (hypertens [...] & TV 00:00: Medical Repair Repair 00 [place] (Russo) (Russo) Pulmonary Pulmonary Disease Active Uni vers hypertensi hypertensi 2-13 it y of on on 00:00: [address] Branch Acute on Acute on Disease Active 2022-0 Unive rs chronic chronic 2-13 ity of respirator [place] failure 00 [place]el with with Branch hypoxia hypoxia Coronary Coronary Disease Active Unive rs artery artery 2-12 ity of disease disease 00:00: [place] involving involving 00 Medi [place]el [place] Branch coronary coronary artery of artery of [place] heart 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 2-12 ity of disease disease 00:00: [place] involving involving 00 Medi yoel [place] Branch coronary coronary artery of artery of [place] heart with heart with angina angina pectoris [...] diabetes 2-12 ity of mellitus mellitus 00:00: [place] with with 00 Medical kidney kidney Branch complicati complicati on, on, without without long-term long-term current current use of use of insulin insulin Hypertensi Hypertensi Disease Active U nivcatherine on, on, 2-11 ity of unspecifie unspecifie [place] type d type 00 Medical Branch 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 00:00: [place] with with 00 Medical diabetic diabetic Branch polyneurop polyneurop athy, athy, without without long-term long-term current current use of use of insulin insulin Cerebrovas Cerebrovas Disease Active U nivers cular cular 2-11 ity of accident accident 00:00: [place] (CVA), (CVA), 00 Medical unspecifie unspecifie Br anch d d mechanism mechanism ESRD on ESRD on Disease Active Univers dialysis dialysis 2-11 ity of 00:00: [place] 00 Medical Branch Fall on Fall on Disease Active Univers concrete concrete 2-11 ity of 00:00: [place] [facility] Acute pain Acute pain Disease Active U nivers of right of right 2-11 ity of knee knee 00:00: Medical Branch Dizziness Dizziness Disease Active Uni vers 2-11 ity of 00:00: [place] [facility] Lower leg Lower leg Disease Active Uni vers edema edema 2-11 ity of 00:00: [place] [facility] Abnormal Abnormal Disease Active Unive rs EKG EKG 2-11 ity of 00:00: [place] [facility] Chest Chest Disease Active Univers pressure pressure 2-11 ity of 00:00: [place] [facility] Chest pain Chest pain Disease Active U nivers 2-11 ity of 00:00: [place] [facility] Postmenopa Postmenopa Disease Active U nivers usal usal 4-20 ity of bleeding bleeding 00:00: [place] [facility] Obesity Obesity Disease Active Univers (BMI (BMI 4-20 ity of 30-39.9) 30-39.9) 00:00: [place] [facility] Hematoma Hematoma Disease Active Metho [...] 2019-02-19 Memoria ia brett 22:28:00 l Condition [place] 02/19/[address] [facility] Hypertensi Hypertens Condition 2019-02-19 Memoria on with ion with 22:28:00 l goal to be goal to be He rmann determined determined Condition 02/19/[address] [facility] Acute Acute Condition 2019-02-19 Mem oria respirator respirator 22:28:00 l y disease y disease Herm ivelisse Condition 02/19/[address] [facility] End-stage End-stage Condition [...] ia respirator respirator 22:28:00 l y y [place] infection infection Problem 02/19/[address] [facility] [place] Elevated Elevated Problem 2019-02-19 Memoria troponin troponin 22:28:00 l level level [place] Problem 02/19/[address] [facility] [place] ESRD (end ESRD (end Disease Recurre [facility] stage stage nce [facility] renal renal Medical disease) disease) Center on on dialysis dialysis (HCC), on (HCC), on dialysis dialysis via RUE via RUE AVF AVF Pacemaker Pacemaker Disease Active Met hodi st [...] Active Univers ALLERGIE Class ity of S [facility] NO KNOWN Allergy Active [facility] ALLERGIE S Family History Family Member Diagnosis Comments Start Date Stop Date Source Natural brother [facility] Natural father Diabetes [facility] Natural mother Diabetes [facility] Natural sister [facility] Social History Social Habit Start Date Stop Date Quantity Comments Source History SDOH Yazdanism Alcohol Std Drinks Hospit al History SDOH Yazdanism Alcohol Binge Hospital History SDMO Yazdanism Alcohol Comment Hospital Gender identity [facility] Sexual orientation Method ist Hospital Exposure to 2021-09-19 2021-09-29 Not sure [facility] SARS-CoV-2 (event) 00:00:00 14:42:00 [facility] Tobacco use and 2020-07-24 2020-07-[address] [facility] Felicita kes exposure 00:00:00 00:00:00 tobacco non-user Medical Center Social History 2019-02-19 2019-02-19 [facility] 22:28:00 22:28:00 History of Social 2018-11-21 2018-11-[address] function 00:00:00 00:00:00 Hospital Alcohol intake 2018-10-27 2018-10-27 Current Yazdanism 00:00:00 00:00:00 non-drinker of Hospital alcohol (finding) History SDOH 2018-10-26 2018-10-26 1 Yazdanism Alcohol Frequency 00:00:00 00:00:00 Hospita l Sex Assigned At [birth year] Yazdanism 00:00:00 00:00:00 Hospital Smoking Status Start Date Stop Date Source Unknown if ever smoked [facility] [place] [facility] Never smoked tobacco [facility] Medications Ordered Filled Start Stop Current Ordering Indication Dosage Frequency Signature Comments Components Source Medication Medication Date Date Medication? Clinician (SIG) Name Name atoraleksandar 2022- No 40mg Take 40 mg Univers n 40 mg 08-02 by mouth ity of tablet 10:24: 00:00 at [place] 30 :00 bedtime. Medical Branch atorvastacyndie 2022- No 40mg Take 40 mg Univers n 40 mg 08-02 by mouth ity of tablet 10:24: 00:00 at [place] 30 :00 bedtime. Medical Branch ATORVASTATI 3-0 Yes [id number] TAKE 1 Univers N 40 mg 5-01 TABLET BY ity of tablet 00:00: MOUTH AT [place] 00 BEDTIME Medical Branch ATORVASTATI 3-0 Yes [id number] TAKE 1 Univers N 40 mg 5-01 TABLET BY ity of tablet 00:00: MOUTH AT [place] 00 BEDTIME Medical Branch atorvastati 2-0 Yes 40mg Take 40 mg Univers n 40 mg 6-28 by mouth ity of tablet 15:14: at [place] 02 bedtime. Medical Branch atorvastati 2021-0 Yes 40mg Take 40 mg Univers n 40 mg 6-28 by mouth ity of tablet 15:14: at [place] bedtime. Medical Branch atorvastati 2021-0 Yes 40mg Take 40 mg Univers n 40 mg 6-28 by mouth ity of tablet 15:14: at [place] bedtime. Medical Branch atorvastati 2021-0 Yes 40mg Take 40 mg Univers n 40 mg 6-28 by mouth ity of tablet 15:14: at [place] bedtime. Medical Branch atorvastati 2021-0 Yes 40mg Take 40 mg Univers n 40 mg 6-28 by mouth ity of tablet 15:14: at [place] bedtime. Medical Branch atorvastati 2021-0 Yes 40mg Take 40 mg Univers n 40 mg 6-28 by mouth ity of tablet 15:14: at [place] [address] bedtime. Medical Branch atorvastati 2021-0 Yes 40mg Take 40 mg Univers n 40 mg 6-28 by mouth ity of tablet 15:14: at [place] [address] bedtime. Medical Branch atorvastati 2021-0 Yes 40mg Take 40 mg Univers n 40 mg 6-28 by mouth ity of tablet 15:14: at [place] [address] bedtime. Medical Branch atorvastati 2021-0 Yes 40mg Take 40 mg Univers n 40 mg 6-28 by mouth ity of tablet 15:14: at [place] [address] bedtime. Medical Branch atorvastati 2021-0 Yes 40mg Take 40 mg Univers n 40 mg 6-28 by mouth ity of tablet 15:14: at [place] [address] bedtime. Medical Branch atorvastati 2021-0 Yes 40mg Take 40 mg Univers n 40 mg 6-28 by mouth ity of tablet 15:14: at [place] bedtime. Medical Branch atorvastati 2-0 Yes 40mg Take 40 mg Univers n 40 mg 6-28 by mouth ity of tablet 15:14: at [place] bedtime. Medical Branch atorvastati 2-0 Yes 40mg Take 40 mg Univers n 40 mg 6-28 by mouth ity of tablet 15:14: at [place] bedtime. Medical Branch atorvastati 2-0 Yes 40mg Take 40 mg Univers n 40 mg 6-28 by mouth ity of tablet 15:14: at [place] bedtime. Medical Branch atorvastati 2-0 Yes 40mg Take 40 mg Univers n 40 mg 6-28 by mouth ity of tablet 15:14: at [place] bedtime. Medical Branch clopidogreL 2-0 Yes [id number] 75mg Take 1 Univers 75 mg 6-28 tablet by ity of tablet 00:00: mouth [place] 00 daily. Medical Branch clopidogreL 2-0 Yes [id number] 75mg Take 1 Univers 75 mg 6-28 tablet by ity of tablet 00:00: mouth [place] 00 daily. Medical Branch clopidogreL 2022-0 Yes [id number] 75mg Take 1 Univers 75 mg 6-28 tablet by ity of tablet 00:00: mouth [place] 00 daily. Medical Branch clopidogreL 2022-0 Yes [id number] 75mg Take 1 Univers 75 mg 6-28 tablet by ity of tablet 00:00: mouth [place] 00 daily. Medical Branch clopidogreL 2022-0 Yes [id number] 75mg Take 1 Univers 75 mg 6-28 tablet by ity of tablet 00:00: mouth [place] 00 daily. Medical Branch clopidogreL 2022-0 Yes [id number] 75mg Take 1 Univers 75 mg 6-28 tablet by ity of tablet 00:00: mouth [place] 00 daily. Medical Branch clopidogreL 2022-0 Yes [id number] 75mg Take 1 Univers 75 mg 6-28 tablet by ity of tablet 00:00: mouth [place] 00 daily. Medical Branch clopidogreL 2022-0 Yes [id number] 75mg Take 1 Univers 75 mg 6-28 tablet by ity of tablet 00:00: mouth [place] 00 daily. Medical Branch clopidogreL 2022-0 Yes [id number] 75mg Take 1 Univers 75 mg 6-28 tablet by ity of tablet 00:00: mouth [place] 00 daily. Medical Branch clopidogreL 2022-0 Yes [id number] 75mg Take 1 Univers 75 mg 6-28 tablet by ity of tablet 00:00: mouth [place] 00 daily. Medical Branch clopidogreL 2021-0 Yes [id number] 75mg Take 1 Univers 75 mg 6-28 tablet by ity of tablet 00:00: mouth [place] 00 daily. Medical Branch clopidogreL 2021-0 Yes [id number] 75mg Take 1 Univers 75 mg 6-28 tablet by ity of tablet 00:00: mouth [place] 00 daily. Medical Branch clopidogreL 2021-0 Yes [id number] 75mg Take 1 Univers 75 mg 6-28 tablet by ity of tablet 00:00: mouth [place] 00 daily. Medical Branch clopidogreL 2021-0 Yes [id number] 75mg Take 1 Univers 75 mg 6-28 tablet by ity of tablet 00:00: mouth [place] 00 daily. Medical Branch clopidogreL 2021-0 Yes [id number] 75mg Take 1 Univers 75 mg 6-28 tablet by ity of tablet 00:00: mouth [place] 00 daily. Medical Branch clopidogreL 2021-0 Yes [id number] 75mg Take 1 Univers 75 mg 6-28 tablet by ity of tablet 00:00: mouth [place] 00 daily. Medical Branch clopidogreL 2021-0 Yes [id number] 75mg Take 1 Univers 75 mg 6-28 [...] mouth 2 [place] 33 (two) Medical times [facility] daily. NIFEdipine 0 Yes 10mg Take 10 mg U nivers 10 mg 6-03 by mouth 3 ity of capsule 10:47: (three) [place] 33 times Medical daily. Branch levETIRAcet 0 [...] mg by ity of 10:47: mouth 2 [place] 33 (two) Medical times [facility] daily. NIFEdipine 0 Yes 10mg Take 10 mg U nivers 10 mg 6-03 by mouth 3 ity of capsule 10:47: (three) [place] 33 times Medical daily. Branch levETIRAcet 0 [...] mg by ity of 10:47: mouth 2 [place] 33 (two) Medical times [facility] daily. NIFEdipine 2021-0 Yes 10mg Take 10 mg U nivers 10 mg 6-03 by mouth 3 ity of capsule 10:47: (three) [place] 33 times Medical daily. Branch levETIRAcet 0 [...] mouth 2 [place] 33 (two) Medical times [facility] daily. NIFEdipine 0 Yes 10mg Take 10 [...] mouth 2 [place] 33 (two) Medical times [facility] daily. NIFEdipine 0 Yes 10mg Take 10 mg U nivers 10 mg 6-03 by mouth 3 ity of capsule 10:47: (three) [place] 33 times Medical daily. Branch levETIRAcet 0 [...] mouth 2 [place] 33 (two) Medical times [facility] daily. NIFEdipine 0 Yes 10mg Take 10 mg U nivers 10 mg 6-03 by mouth 3 ity of capsule 10:47: (three) [place] 33 times Medical daily. Branch levETIRAcet 0 [...] mouth 2 [place] 33 (two) Medical times [facility] daily. NIFEdipine 2021-0 Yes 10mg Take 10 mg U nivers 10 mg 6-03 by mouth 3 ity of capsule 10:47: (three) [place] 33 times Medical daily. Branch levETIRAcet 2021-0 [...] mg by ity of 10:47: mouth 2 [place] 33 (two) Medical times [facility] daily. NIFEdipine 2021-0 Yes 10mg Take 10 mg U nivers 10 mg 6-03 by mouth 3 ity of capsule 10:47: (three) [place] [address] times Medical daily. Branch levETIRAcet 0 Yes [...] mg by ity of 10:47: mouth 2 [place] 33 (two) Medical times [facility] daily. NIFEdipine 2021-0 Yes 10mg Take 10 mg U nivers 10 mg 6-03 by mouth 3 ity of capsule 10:47: (three) [place] 33 times Medical daily. Branch levETIRAcet 2021-0 [...] mg by ity of 10:47: mouth 2 [place] 33 (two) Medical times [facility] daily. NIFEdipine 2021-0 Yes 10mg Take 10 mg U nivers 10 mg 6-03 by mouth 3 ity of capsule 10:47: (three) [place] 33 times Medical daily. Branch levETIRAcet 0 [...] mouth 3 ity of capsule 10:47: (three) [place] 33 times Medical daily. Branch levETIRAcet 2021-0 [...] mouth 3 ity of capsule 10:47: (three) [place] 33 times Medical daily. Branch levETIRAcet Yes [...] mouth 2 [place] 33 (two) Medical times [facility] daily. NIFEdipine Yes 10mg Take 10 mg U nivers 10 mg 6-03 by mouth 3 ity of capsule 10:47: (three) [place] 33 times Medical daily. Branch levETIRAcet Yes 500mg Take 500 U nivers am (KEPPRA) 6-03 mg by ity of 500 mg 10:47: mouth at [place] tablet 33 bedtime. Medical Branch levETIRAcet 0 Yes 250mg Take 250 U nivers am (KEPPRA) 6-03 mg by ity of 250 mg 10:47: mouth [place] tablet 33 every Medical Tuesday, Branch Tuesday and Tuesday. After dialysis mirtazapine Yes [id number] 15mg Take 1 Univers (REMERON) 6-03 tablet by ity o f 15 mg 00:00: mouth at [place] tablet 00 bedtime. Medical Branch traZODone 2021-0 Yes [id number] 50mg Take 1 Un kecia 50 mg 6-03 tablet by ity of tablet 00:00: mouth at [place] 00 bedtime. Medical Branch mirtazapine 2021-0 Yes [id number] 15mg Take 1 Univers (REMERON) 6-03 tablet by ity o f 15 mg 00:00: mouth at [place] tablet 00 bedtime. Medical Branch traZODone 2021-0 Yes [id number] 50mg Take 1 Un kecia 50 mg 6-03 tablet by ity of tablet 00:00: mouth at [place] 00 bedtime. Medical Branch mirtazapine 2021-0 Yes [id number] 15mg Take 1 Univers (REMERON) 6-03 tablet by ity o f 15 mg 00:00: mouth at [place] tablet 00 bedtime. Medical Branch traZODone 2021-0 Yes [id number] 50mg Take 1 Un kecia 50 mg 6-03 tablet by ity of tablet 00:00: mouth at [place] 00 bedtime. Medical Branch mirtazapine 2021-0 Yes [id number] 15mg Take 1 Univers (REMERON) 6-03 tablet by ity o f 15 mg 00:00: mouth at [place] tablet 00 bedtime. Medical Branch traZODone 2021-0 Yes [id number] 50mg Take 1 Un kecia 50 mg 6-03 tablet by ity of tablet 00:00: mouth at [place] 00 bedtime. Medical Branch mirtazapine 2021-0 Yes [id number] 15mg Take 1 Univers (REMERON) 6-03 tablet by ity o f 15 mg 00:00: mouth at [place] tablet 00 bedtime. Medical Branch traZODone 2021-0 Yes [id number] 50mg Take 1 Un kecia 50 mg 6-03 tablet by ity of tablet 00:00: mouth at [place] 00 bedtime. Medical Branch mirtazapine 2021-0 Yes [id number] 15mg Take 1 Univers (REMERON) 6-03 tablet by ity o f 15 mg 00:00: mouth at [place] tablet 00 bedtime. Medical Branch traZODone 2021-0 Yes [id number] 50mg Take 1 Un kecia 50 mg 6-03 tablet by ity of tablet 00:00: mouth at [place] 00 bedtime. Medical Branch mirtazapine 2021-0 Yes [id number] 15mg Take 1 Univers (REMERON) 6-03 tablet by ity o f 15 mg 00:00: mouth at [place] tablet 00 bedtime. Medical Branch traZODone 2021-0 Yes [id number] 50mg Take 1 Un kecia 50 mg 6-03 tablet by ity of tablet 00:00: mouth at [place] 00 bedtime. Medical Branch mirtazapine 2021-0 Yes [id number] 15mg Take 1 Univers (REMERON) 6-03 tablet by ity o f 15 mg 00:00: mouth at [place] tablet 00 bedtime. Medical Branch traZODone 2021-0 Yes [id number] 50mg Take 1 Un kecia 50 mg 6-03 tablet by ity of tablet 00:00: mouth at [place] 00 bedtime. Medical Branch mirtazapine 2021-0 Yes [id number] 15mg Take 1 Univers (REMERON) 6-03 tablet by ity o f 15 mg 00:00: mouth at [place] tablet 00 bedtime. Medical Branch traZODone 2021-0 Yes [id number] 50mg Take 1 Un kecia 50 mg 6-03 tablet by ity of tablet 00:00: mouth at [place] 00 bedtime. Medical Branch mirtazapine 2021-0 Yes [id number] 15mg Take 1 Univers (REMERON) 6-03 tablet by ity o f 15 mg 00:00: mouth at [place] tablet 00 bedtime. Medical Branch traZODone 2021-0 Yes [id number] 50mg Take 1 Un kecia 50 mg 6-03 tablet by ity of tablet 00:00: mouth at [place] 00 bedtime. Medical Branch mirtazapine 2021-0 Yes [id number] 15mg Take 1 Univers (REMERON) 6-03 tablet by ity o f 15 mg 00:00: mouth at [place] tablet 00 bedtime. Medical Branch traZODone 2021-0 Yes [id number] 50mg Take 1 Un kecia 50 mg 6-03 tablet by ity of tablet 00:00: mouth at [place] 00 bedtime. Medical Branch mirtazapine 2021-0 Yes [id number] 15mg Take 1 Univers (REMERON) 6-03 tablet by ity o f 15 mg 00:00: mouth at [place] tablet 00 bedtime. Medical Branch traZODone 2021-0 Yes [id number] 50mg Take 1 Un kecia 50 mg 6-03 tablet by ity of tablet 00:00: mouth at [place] 00 bedtime. Medical Branch mirtazapine 2021-0 Yes [id number] 15mg Take 1 Univers (REMERON) 6-03 tablet by ity o f 15 mg 00:00: mouth at [place] tablet 00 bedtime. Medical Branch traZODone 2021-0 Yes [id number] 50mg Take 1 Un kecia 50 mg 6-03 tablet by ity of tablet 00:00: mouth at [place] 00 bedtime. Medical Branch mirtazapine 2021-0 Yes [id number] 15mg Take 1 Univers (REMERON) 6-03 tablet by ity o f 15 mg 00:00: mouth at [place] tablet 00 bedtime. Medical Branch traZODone 2021-0 Yes [id number] 50mg Take 1 Un kecia 50 mg 6-03 tablet by ity of tablet 00:00: mouth at [place] 00 bedtime. Medical Branch mirtazapine 2021-0 Yes [id number] 15mg Take 1 Univers (REMERON) 6-03 tablet by ity o f 15 mg 00:00: mouth at [place] tablet 00 bedtime. Medical Branch traZODone 2021-0 Yes [id number] 50mg Take 1 Un kecia 50 mg 6-03 tablet by ity of tablet 00:00: mouth at [place] 00 bedtime. Medical Branch mirtazapine 2021-0 Yes [id number] 15mg Take 1 Univers (REMERON) 6-03 tablet by ity o f 15 mg 00:00: mouth at [place] tablet 00 bedtime. Medical Branch traZODone 2021-0 Yes [id number] 50mg Take 1 Un [place] 50 mg 6-03 tablet by ity of tablet 00:00: mouth at [place] 00 bedtime. Medical Branch mirtazapine 2021-0 Yes [id number] 15mg Take 1 Univers (REMERON) 6-03 tablet by ity o f 15 mg 00:00: mouth at [place] tablet 00 bedtime. Medical Branch traZODone 2021-0 Yes [id number] 50mg Take 1 Un kecia 50 mg 6-03 tablet by ity of tablet 00:00: mouth at [place] 00 bedtime. Medical Branch amoxicillin 2022-0 Yes 500mg Take 500 U nivers 500 mg 5-24 mg by ity of capsule 00:00: mouth. [place] [address] Medical Branch amoxicillin 2022-0 Yes 500mg Take 500 U nivers 500 mg 5-24 mg by ity of capsule 00:00: mouth. [place] [address] Medical Branch amoxicillin 2022-0 Yes 500mg Take 500 U nivers 500 mg 5-24 mg by ity of capsule 00:00: mouth. [place] [address] Medical Branch amoxicillin 2022-0 Yes 500mg Take 500 U nivers 500 mg 5-24 mg by ity of capsule 00:00: mouth. [place] [address] Medical Branch amoxicillin 2022-0 Yes 500mg Take 500 U nivers 500 mg 5-24 mg by ity of capsule 00:00: mouth. [place] [address] Medical Branch amoxicillin 2022-0 Yes 500mg Take 500 U nivers 500 mg 5-24 mg by ity of capsule 00:00: mouth. [place] [address] Medical Branch amoxicillin 2022-0 Yes 500mg Take 500 U nivers 500 mg 5-24 mg by ity of capsule 00:00: mouth. [place] [address] Medical Branch amoxicillin 2022-0 Yes 500mg Take 500 U nivers 500 mg 5-24 mg by ity of capsule 00:00: mouth. [place] [address] Medical Branch amoxicillin 2022-0 Yes 500mg Take 500 U nivers 500 mg 5-24 mg by ity of capsule 00:00: mouth. [place] [address] Medical Branch amoxicillin 2022-0 Yes 500mg Take 500 U nivers 500 mg 5-24 mg by ity of capsule 00:00: mouth. [place] [address] Medical Branch amoxicillin 2022-0 Yes 500mg Take 500 U nivers 500 mg 5-24 mg by ity of capsule 00:00: mouth. [place] [address] Medical Branch amoxicillin 2022-0 Yes 500mg Take 500 U nivers 500 mg 5-24 mg by ity of capsule 00:00: mouth. [place] [address] Medical Branch amoxicillin 2022-0 Yes 500mg Take 500 U nivers 500 mg 5-24 mg by ity of capsule 00:00: mouth. [place] [address] Medical Branch amoxicillin 2022-0 Yes 500mg Take 500 U nivers 500 mg 5-24 mg by ity of capsule 00:00: mouth. [place] [address] Medical Branch amoxicillin 2022-0 Yes 500mg Take 500 U nivers 500 mg 5-24 mg by ity of capsule 00:00: mouth. [address] amoxicillin 2-0 Yes 500mg Take 500 U nivers 500 mg 5-24 mg by ity of capsule 00:00: mouth. [address] amoxicillin 2-0 Yes 500mg Take 500 U nivers 500 mg 5-24 mg by ity of capsule 00:00: mouth. [address] hydrALAZINE 2-0 Yes 50mg Take 50 mg [facility] 50 mg 4-08 by mouth. ity of tablet 00:00: [place] [facility] hydrALAZINE 2-0 Yes 50mg Take 50 mg [facility] 50 mg 4-08 by mouth. ity of tablet 00:00: [place] [facility] hydrALAZINE 2-0 Yes 50mg Take 50 mg [facility] 50 mg 4-08 by mouth. ity of tablet 00:00: [address] hydrALAZINE 2-0 Yes 50mg Take 50 mg [facility] 50 mg 4-08 by mouth. ity of tablet 00:00: [place] [facility] hydrALAZINE 2-0 Yes 50mg Take 50 mg [facility] 50 mg 4-08 by mouth. ity of tablet 00:00: [address] hydrALAZINE 2-0 Yes 50mg Take 50 mg [facility] 50 mg 4-08 by mouth. ity of tablet 00:00: [address] hydrALAZINE 2-0 Yes 50mg Take 50 mg [facility] 50 mg 4-08 by mouth. ity of tablet 00:00: [place] [facility] hydrALAZINE 2-0 Yes 50mg Take 50 mg [facility] 50 mg 4-08 by mouth. ity of tablet 00:00: [place] [facility] hydrALAZINE 2-0 Yes 50mg Take 50 mg [facility] 50 mg 4-08 by mouth. ity of tablet 00:00: [address] hydrALAZINE 2-0 Yes 50mg Take 50 mg [facility] 50 mg 4-08 by mouth. ity of tablet 00:00: [address] hydrALAZINE 2-0 Yes 50mg Take 50 mg [facility] 50 mg 4-08 by mouth. ity of tablet 00:00: [address] hydrALAZINE 2-0 Yes 50mg Take 50 [...] Medical Branch aspirin 81 2021-0 2021- No [id number] 81mg Take 1 [facility] mg chewable 4-08 07-08 tablet by it y of tablet 00:00: 04:59 mouth [place] 00 :00 daily for Medical 90 days. Branch clopidogreL 2021-0 2021- No [id number] 75mg Take 1 [facility] 75 mg 4-11 07-28 tablet by ity of tablet 00:00: 00:00 [...] 3 (three) times a week after dialysis for 60 days. levETIRAcet 2021-0 2021- No [...] dialysis TUE/ I for 60 days. levETIRAcet 0 2021- No 250mg Take 1 [facility] [...] Take [address] (KEPPRA) 07-06-03 [facility] 250 MG 00:00: 23:59 (250 mg Medical tablet 00 :00 total) by Center mouth 3 (three) times a week after dialysis I for 60 days. levETIRAcet 2021- No 250mg Take [address] [facility] (KEPPRA) 07-06-03 [facility] 250 MG 00:00: 23:59 (250 [...] tablet 35 daily. Center sucroferric Yes 500mg Q.45000115 Take [address] [facility] oxyhydroxid 4-02 [id number] mg by L ukes e 500 mg 14:35: 3D mouth 3 Medica l Chew 35 (three) Center times daily. multivitami Yes 1{tbl} QD Take [address] [facility] with 4-02 tablet by [facility] 14:35: mouth Medical tablet 35 daily. Center sucroferric Yes 500mg Q.[id number] Take [address] oxyhydroxid 4-02 [id number] mg by L [facility]kes e 500 mg 14:35: 3D mouth 3 Medica l Chew 35 (three) Center times daily. multivitami Yes 1{tbl} QD Take [address] [facility] with 4-02 tablet by [facility] 14:35: mouth Medical tablet 35 daily. Center sucroferric Yes 500mg Q.42444940 Take [address] oxyhydroxid 4-02 [id number] mg by L ukes e 500 mg 14:35: 3D mouth 3 Medica l Chew 35 (three) Center times daily. multivitami Yes 1{tbl} QD Take [address] [facility] with 4-02 tablet by [facility] 14:35: mouth Medical tablet 35 daily. Center sucroferric Yes 500mg Q.24012373 Take [address] oxyhydroxid 4-02 [id number] mg by L ukes e 500 mg 14:35: 3D mouth 3 Medica l Chew 35 (three) Center times daily. multivitami Yes 1{tbl} QD Take [address] [facility] with 4-02 tablet by [facility] 14:35: mouth Medical tablet 35 daily. Center sucroferric Yes 500mg Q.[id number] Take [address] oxyhydroxid 4-02 [id number] mg by L [facility] e 500 mg 14:35: 3D mouth 3 Medica l Chew 35 (three) Center times daily. multivitami Yes 1{tbl} QD Take [address] [facility] with 4-02 tablet by [facility] 14:35: mouth Medical tablet 35 daily. Center sucroferric Yes 500mg Q.[id number] Take [address] oxyhydroxid 4-02 [id number] mg by L ukes e 500 mg 14:35: 3D mouth 3 Medica l Chew 35 (three) Center times daily. multivitami Yes 1{tbl} QD Take [address] [facility] with 4-02 tablet by [facility] 14:35: mouth Medical tablet 35 daily. Center sucroferric Yes 500mg Q.[id number] Take [address] oxyhydroxid 4-02 [id number] mg by L [facility]kes e 500 mg 14:35: 3D mouth 3 Medica l Chew 35 (three) Center times daily. multivitami Yes 1{tbl} QD Take [address] [facility] with 4-02 tablet by [facility] 14:35: mouth Medical tablet 35 daily. Center sucroferric Yes 500mg Q.11963252 Take [address] oxyhydroxid 4-02 [id number] mg by L [facility] 500 mg 14:35: 3D mouth 3 Medica l Chew 35 (three) Center times daily. multivitami Yes 1{tbl} QD Take [address] [facility] with 4-02 tablet by [facility] 14:35: mouth Medical tablet 35 daily. Center sucroferric Yes 500mg Q.[id number] Take [address] oxyhydroxid 4-02 [id number] mg by L [facility]kes e 500 mg 14:35: 3D mouth 3 Medica l Chew 35 (three) Center times daily. multivitami Yes 1{tbl} QD Take [address] [facility] with 4-02 tablet by [facility] 14:35: mouth Medical tablet 35 daily. Center sucroferric Yes 500mg Q.[id number] Take [address] oxyhydroxid 4-02 [id number] mg by L [facility] e 500 mg 14:35: 3D mouth 3 Medica l Chew 35 (three) Center times daily. multivitami Yes 1{tbl} QD Take [address] [facility] with 4-02 tablet by [facility] 14:35: mouth Medical tablet 35 daily. Center sucroferric Yes 500mg Q.74119613 Take [address] oxyhydroxid 4-02 [id number] mg by L ukes e 500 mg 14:35: 3D mouth 3 Medica l Chew 35 (three) Center times daily. multivitami Yes 1{tbl} QD Take [address] [facility] with 4-02 tablet by [facility] 14:35: mouth Medical tablet 35 daily. Center sucroferric Yes 500mg Q.52787476 Take [address] oxyhydroxid 4-02 [id number] mg by L [facility] e 500 mg 14:35: 3D mouth 3 Medica l Chew 35 (three) Center times daily. multivitami Yes 1{tbl} QD Take [address] [facility] with 4-02 tablet by [facility] 14:35: mouth Medical tablet 35 daily. Center sucroferric Yes 500mg Q.87260504 Take [address] oxyhydroxid 4-02 [id number] mg by L ukes e 500 mg 14:35: 3D mouth 3 Medica l Chew 35 (three) Center times daily. multivitami Yes 1{tbl} QD Take [address] [facility] with 07-04 tablet by [facility] 14:35: mouth Medical tablet 35 daily. Center sucroferric Yes 500mg Q.49742265 Take [address] oxyhydroxid 07-04 [id number] mg by L ukes e 500 mg [...] :00 Center tablet hydrALAZINE 2021- No 50mg Q.[id number] Take [address] [facility] (APRESOLINE 07-04 [id number] by mouth 3 [facility] ) 50 MG [...] :00 Center tablet hydrALAZINE 2021- No 50mg Q.[id number] Take [address] [facility] (APRESOLINE 07-04 [id number] by mouth 3 [facility] ) 50 MG [...] hr 35 :00 Center tablet hydrALAZINE 50mg Q.11953687 Take [address] [facility] (APRESOLINE 07-04 [id number] by mouth 3 [facility] ) 50 MG [...] 11:07: 00:00 daily. Medic al 35 :00 [place] NIFEdipine No 60mg QD Take [address] [facility] (PROCARDIA- 07-04 by mouth Ned es XL) 60 MG 11:07: 00:00 daily. Medic al (OSM) 24 hr 35 :00 Center tablet hydrALAZINE No 50mg Q.56060201 Take [address] [facility] (APRESOLINE 07-04 [id number] by mouth 3 [facility] ) 50 MG [...] tablet 11:07: 00:00 daily. Medical 35 :00 [place] carvediloL 2021- No 12.5mg Take 12.5 [facility] [...] 35 :00 Center tablet hydrALAZINE No 50mg Q.75873845 Take [address] [facility] (APRESOLINE 07-04 [id number] by mouth 3 [facility] ) 50 MG [...] 35 :00 Center tablet hydrALAZINE No 50mg Q.[id number] Take [address] [facility] (APRESOLINE 07-04 [id number] by mouth 3 [facility] ) 50 MG 11:07: 00:00 3D (three) Medica l tablet 35 :00 times Center daily. lisinopriL No 5mg QD Take [address] (PRINIVIL,Z 07-04 by mouth Ned es ESTRIL) 5 11:07: 00:00 daily. Medic al MG tablet 35 :00 [place] aspirin 81 No 81mg QD Take [address] [facility] [facility] MG EC 07-04 by mouth [facility] tablet 11:07: 00:00 daily. Medical 35 :00 [place] carvediloL No 12.5mg Take 12.[address] [facility] [...] 35 :00 Center tablet hydrALAZINE No 50mg Q.[id number] Take [address] [facility] (APRESOLINE 07-04 [id number] by mouth 3 [facility] ) 50 MG 11:07: 00:00 3D (three) Medica l tablet 35 :00 times Center daily. lisinopriL No 5mg QD Take [address] (PRINIVIL,Z 07-04 by mouth Ned es ESTRIL) 5 11:07: 00:00 daily. Medic al MG tablet 35 :00 [place] aspirin 81 No 81mg QD Take [address] [facility] MG EC 07-04 by mouth [facility] tablet 11:07: 00:00 daily. Medical 35 :00 [place] carvediloL 2021- No 12.5mg Take 12.[address] [facility] (COREG) 07-04-02 mg by [facility] 12.5 MG 11:07: 00:00 mouth 2 Medica l tablet 35 :00 (two) Center times daily with breakfast and dinner. atorvastati 2021- No 40mg QD Take [address] [facility] n (LIPITOR) 07-04 by mouth Ned es 40 MG 11:07: 00:00 daily. Medical tablet 35 :00 [place] isosorbide 2021- No 30mg QD Take 30 [...] 35 :00 Center tablet hydrALAZINE No 50mg Q.61356329 Take [address] [facility] (APRESOLINE 07-04 [id number] by mouth 3 [facility] ) 50 MG [...] 35 :00 Center tablet hydrALAZINE No 50mg Q.74476013 Take [address] [facility] (APRESOLINE 07-04 [id number] by mouth 3 [facility] ) 50 MG [...] tablet 11:07: 00:00 daily. Medical 35 :00 [place] carvediloL No 12.5mg Take 12.[address] [...] :00 Center tablet hydrALAZINE 2021- No 50mg Q.[id number] Take [address] [facility] (APRESOLINE 07-04- [id number] by mouth 3 [facility] ) 50 MG [...] tablet 11:07: 00:00 daily. Medical 35 :00 [place] carvediloL 2021- No 12.5mg Take 12.[address] [facility] (COREG) 07-04- mg by [facility] 12.5 MG 11:07: 00:00 mouth 2 Medica l tablet 35 :00 (two) Center times daily with breakfast and dinner. atorvastati 2021- No 40mg QD Take [address] [facility] n (LIPITOR) 07-04 by mouth Ned es 40 MG 11:07: 00:00 daily. Medical tablet 35 :00 [place] isosorbide 2021- No 30mg QD Take 30 [...] :00 Center tablet hydrALAZINE 2021- No 50mg Q.75144650 Take [address] [facility] (APRESOLINE 07-04 [id number] by mouth 3 [facility] ) 50 MG [...] % (NS) 100 mL (V2B) IVPB atorvastati 2022-0 2022- No 40mg QD Take [address] [facility] [...] in 6000U Inject [address] [facility] [address] renetta-epbx 4-02 06-01 chronic mLs (6,000 [facility] (RETACRIT) 00:00: 23:59 [...] No Use as [facility] regular 4-05 08-02 directed. [facility] (HumuLIN 00:00: 00:00 Medical R,NovoLIN 00 :00 Center R) 100 unit/mL injection insulin 2021- No Use as [facility] regular 4-05 08-02 directed. [facility] (HumuLIN 00:00: 00:00 Medical R,NovoLIN 00 :00 Center R) 100 unit/mL injection insulin 2021- No Use as [facility] regular 4-05 08-02 directed. [facility] (HumuLIN 00:00: 00:00 Medical R,NovoLIN [...] No Use as [facility] regular 4-05 08-02 directed. [facility] (HumuLIN 00:00: 00:00 Medical R,NovoLIN 00 :00 Center R) 100 unit/mL injection insulin 2021- No Use as [facility] regular 4-02 04-02 directed. [facility] (HumuLIN 00:00: 00:00 Medical R,NovoLIN 00 :00 Center R) 100 unit/mL injection insulin 0 2021- No Use as [facility] regular 4-02 - directed. [facility] (HumuLIN 00:00: 00:00 Medical R,NovoLIN 00 :00 Center R) 100 unit/mL injection insulin 2021-2021- No Use as [facility] regular 4-02 [...] hr 59 Center tablet hydrALAZINE Yes 50mg Q.[id number] Take [address] [facility] (APRESOLINE 07-03 [id number] by mouth 3 [facility] ) 50 MG [...] tablet 59 Center sucroferric 0 Yes 500mg Q.[id number] Take [address] oxyhydroxid 4-01 [id number] mg by L ukes e 500 mg [...] 15 Center tablet hydrALAZINE 0 Yes 50mg Q.[id number] Take [address] [facility] (APRESOLINE 3-30 [id number] by mouth 3 [facility] ) 50 MG [...] tablet 15 Center sucroferric 0 Yes 500mg Q.62491623 Take [address] oxyhydroxid 3-30 [id number] mg by L ukes e 500 mg [...] 15 Center tablet hydrALAZINE 0 Yes 50mg Q.27814644 Take [address] [facility] (APRESOLINE 3-30 [id number] by mouth 3 [facility] ) 50 MG [...] tablet 15 Center sucroferric 0 Yes 500mg Q.03749202 Take [address] oxyhydroxid 3-30 [id number] mg by L ukes e 500 mg [...] hr 18 Center tablet hydrALAZINE Yes 50mg Q.[id number] Take [address] [facility] (APRESOLINE 3-30 [id number] by mouth 3 [facility] ) 50 MG 08:40: 3D (three) Medical tablet 18 times Center daily. multivitami Yes 1{tbl} QD Take [address] [facility] with 3-30 tablet by [facility] 08:40: mouth Medical tablet 18 daily. Center lisinopriL Yes 5mg QD Take [address] (PRINIVIL,Z 3-30 by mouth Luke s ESTRIL) 5 08:40: daily. Medica l MG tablet 18 Center sucroferric Yes 500mg Q.75850629 Take [address] oxyhydroxid 3-30 [id number] mg by L ukes e 500 mg [...] hr 01 Center tablet hydrALAZINE Yes 50mg Q.67751037 Take [address] [facility] (APRESOLINE 3-28 [id number] by mouth 3 [facility] ) 50 MG 14:25: 3D (three) Medical tablet 01 times Center daily. multivitami 0 Yes 1{tbl} QD Take [address] [facility] with 3-28 tablet by [facility] 14:25: mouth Medical tablet daily. [place] lisinopriL 0 Yes 5mg QD Take [address] [facility] [address] [facility] (PRINIVIL,Z 3-28 by mouth Luke s ESTRIL) 5 14:25: daily. Medica l MG tablet [place] sucroferric Yes 500mg Q.72259874 Take [address] oxyhydroxid -28 [id number] mg by L ukes e 500 mg [...] 22 Center tablet hydrALAZINE 0 Yes 50mg Q.49361077 Take [address] [facility] (APRESOLINE 3-28 [id number] by mouth 3 [facility] ) 50 MG 09:34: 3D (three) Medical tablet 22 times Center daily. multivitami 0 Yes 1{tbl} QD Take [address] [facility] with 3-28 tablet by [facility] 09:34: mouth Medical tablet 22 daily. [place] lisinopriL 0 Yes 5mg QD Take [address] [facility] (PRINIVIL,Z 3-28 by mouth Luke s ESTRIL) 5 09:34: daily. Medica l MG tablet 22 Center sucroferric Yes 500mg Q.30337187 Take [address] oxyhydroxid 3-28 [id number] mg by L ukes e 500 mg [...] 49 Center tablet hydrALAZINE 0 Yes 50mg Q.93341405 Take [address] [facility] (APRESOLINE 3-25 [id number] by mouth 3 [facility] ) 50 MG [...] tablet 49 Center sucroferric 0 Yes 500mg Q.14350249 Take [address] oxyhydroxid 3-25 [id number] mg by L ukes e 500 mg [...] 15 Center tablet hydrALAZINE 0 Yes 50mg Q.48359994 Take [address] [facility] (APRESOLINE 3-20 [id number] by mouth 3 [facility] ) 50 MG [...] MG tablet 15 Center sucroferric Yes 500mg Q.31169310 Take [address] oxyhydroxid 3-20 [id number] mg by L ukes e 500 mg [...] 15 Center tablet hydrALAZINE 0 Yes 50mg Q.[id number] Take [address] [facility] (APRESOLINE 3-20 [id number] by mouth 3 [facility] ) 50 MG 18:09: 3D (three) Medical tablet 15 times Center daily. multivitami 0 Yes 1{tbl} QD Take [address] [facility] with 3-20 tablet by [facility] 18:09: mouth Medical tablet 15 daily. [place] lisinopriL 0 Yes 5mg QD Take [address] (PRINIVIL,Z 3-20 by mouth Luke s ESTRIL) 5 18:09: daily. Medica l MG tablet 15 [place] sucroferric Yes 500mg Q.04770916 Take [address] oxyhydroxid 3-20 [id number] mg by L ukes e 500 mg 18:09: 3D mouth 3 Medica l Chew 15 (three) Center times daily. atorvastati Yes 40mg QD Take [address] [facility] (LIPITOR) 3-20 by mouth Luke s 40 MG 18:09: daily. Medical tablet 15 [place] aspirin 81 0 Yes 81mg QD Take [address] MG EC 3-07 by mouth [facility] tablet 04:45: daily. [address] carvediloL 0 Yes 12.5mg Take 12.[address] [facility] [address] (COREG) 3-07 mg by [facility] 12.5 MG 04:45: mouth 2 Medical tablet 04 (two) Center times daily with breakfast and dinner. aspirin 81 0 Yes 81mg QD Take [address] MG EC 3-07 by mouth [facility] tablet 04:45: daily. [address] carvediloL Yes 12.5mg Take 12.[address] [address] (COREG) 3-07 mg by [facility] 12.5 MG 04:45: mouth 2 Medical tablet 04 (two) Center times daily with breakfast and dinner. aspirin 81 0 Yes 81mg QD Take [address] MG EC 3-07 by mouth [facility] tablet 04:45: daily. [address] carvediloL 0 Yes 12.5mg Take 12.[address] [address] (COREG) 3-07 mg by [facility] 12.5 MG 04:45: mouth 2 Medical tablet 04 (two) Center times daily with breakfast and dinner. aspirin 81 0 Yes 81mg QD Take [address] MG EC 3-07 by mouth [facility] tablet 04:45: daily. [address] carvediloL 2022-0 Yes 12.5mg Take 12.[address] [address] (COREG) 3-07 mg by [facility] 12.5 MG 04:45: mouth 2 Medical tablet 04 (two) Center times daily with breakfast and dinner. aspirin 81 2021-0 Yes 81mg QD Take [address] MG EC 3-07 by mouth [facility] tablet 04:45: daily. [address] carvediloL 0 Yes 12.5mg Take 12.[address] [address] (COREG) 3-07 mg by [facility] 12.5 MG 04:45: mouth 2 Medical tablet 04 (two) Center times daily with breakfast and dinner. aspirin 81 2021-0 Yes 81mg QD Take [address] MG EC 3-07 by mouth [facility] tablet 04:45: daily. [address] carvediloL Yes 12.5mg Take 12.[address] [address] (COREG) 3-07 mg by [facility] 12.5 MG 04:45: mouth 2 Medical tablet 04 (two) Center times daily with breakfast and dinner. aspirin 81 0 Yes 81mg QD Take [address] MG EC 3-07 by mouth [facility] tablet 04:45: daily. [address] carvediloL Yes 12.5mg Take 12.[address] [address] (COREG) 3-07 mg by [facility] 12.5 MG 04:45: mouth 2 Medical tablet 04 (two) Center times daily with breakfast and dinner. aspirin 81 2021-0 Yes 81mg QD Take [address] MG EC 3-07 by mouth [facility] tablet 04:45: daily. [address] carvediloL 0 Yes 12.5mg Take 12.[address] [address] (COREG) 3-07 mg by [facility] 12.5 MG 04:45: mouth 2 Medical tablet 04 (two) Center times daily with breakfast and dinner. aspirin 81 2021-0 Yes 81mg QD Take [address] MG EC 3-07 by mouth [facility] tablet 04:45: daily. [address] carvediloL 0 Yes 12.5mg Take 12.[address] [address] (COREG) 3-07 mg by [facility] 12.5 MG 04:45: mouth 2 Medical tablet 04 (two) Center times daily with breakfast and dinner. aspirin 81 2021- No [id number] 81mg Take 1 [facility] mg chewable 05-23 tablet by it y of tablet 00:00: 04:59 mouth [place] 00 :00 daily for Medical 30 days. Branch clopidogreL 2021- No [id number] 75mg Take 1 [facility] 75 mg 05-23 tablet by ity of tablet 00:00: 04:59 mouth [place] 00 :00 daily for Medical 30 days. Branch isosorbide 2021- No [id number] 30mg Take 1 [facility] mononitrate 05-23 tablet by it y of 30 mg 24 hr 00:00: 04:59 mouth [place] tablet 00 :00 daily for Medical 30 days. Branch lisinopriL 2021- No [id number] 5mg Take 1 [facility] 5 mg tablet 05-23 tablet by it y of 00:00: 04:59 mouth [place] 00 :00 daily for Medical 30 days. [facility] vitamin b 2021- No [id number] 1{tbl} Take 1 [facility] complex-vit 05-23 tablet by it y of [place] 00:00: 04:59 mouth [place] c-folic 00 :00 daily for Medical acid 0.8 mg 30 days. Bran ch tablet aspirin 81 2021- No [id number] 81mg Take 1 [facility] mg chewable 05-23 tablet by it y of tablet 00:00: 04:59 mouth [place] 00 :00 daily for Medical 30 days. Branch clopidogreL 2021- No [id number] 75mg Take 1 [facility] 75 mg 05-23 tablet by ity of tablet 00:00: 04:59 mouth [place] 00 :00 daily for Medical 30 days. Branch isosorbide 2021- No [id number] 30mg Take 1 [facility] mononitrate 05-23 tablet by it y of 30 mg 24 hr 00:00: 04:59 mouth [place] tablet 00 :00 daily for Medical 30 days. Branch lisinopriL 2021- No [id number] 5mg Take 1 [facility] 5 mg tablet 05-23 tablet by it y of 00:00: 04:59 mouth [place] 00 :00 daily for Medical 30 days. Branch vitamin b 2021- No [id number] 1{tbl} Take 1 [facility] complex-vit 05-23 tablet by it y of [place] 00:00: 04:59 mouth [place] c-folic 00 :00 daily for Medical acid 0.8 mg 30 days. Bran ch tablet aspirin 81 2021- No [id number] 81mg Take 1 [facility] mg chewable 05-23 tablet by it y of tablet 00:00: 04:59 mouth [place] 00 :00 daily for Medical 30 days. Branch clopidogreL 2021- No [id number] 75mg Take 1 [facility] 75 mg 05-23 tablet by ity of tablet 00:00: 04:59 mouth [place] 00 :00 daily for Medical 30 days. Branch isosorbide 2021- No [id number] 30mg Take 1 [facility] mononitrate 05-23 tablet by it y of 30 mg 24 hr 00:00: 04:59 mouth [place] tablet 00 :00 daily for Medical 30 days. Branch lisinopriL 2021- No [id number] 5mg Take 1 [facility] 5 mg tablet 05-23 tablet by it y of 00:00: 04:59 mouth [place] 00 :00 daily for Medical 30 days. Branch vitamin b 2021- No [id number] 1{tbl} Take 1 [facility] complex-vit 05-23 tablet [...] [place] 42 :00 Medical Branch nitroglycer Yes [id number] .4mg Place 1 Univers in 0.4 mg 2-18 tablet ity of sublingual 00:00: under the [place] tablet 00 tongue Medical every 5 Branch (five) minutes as needed for Chest pain. nitroglycer Yes [id number] .4mg Place 1 [facility] in 0.4 mg 2-18 tablet ity of sublingual 00:00: under the [place] tablet 00 tongue Medical every 5 Branch (five) minutes as needed for Chest pain. nitroglycer Yes [id number] .4mg Place 1 Univers in 0.4 mg 2-18 tablet ity of sublingual 00:00: under the [place] tablet 00 tongue Medical every 5 Branch (five) minutes as needed for Chest pain. atorvastati 2021- No [id number] 40mg Take 1 [facility] n 40 mg -18 - tablet by ity of tablet 00:00: 04:59 mouth at [place] 00 :00 bedtime Medical for 30 Branch days. carvediloL 2021- No [id number] 6.25mg Take 1 [facility] 6.25 mg 2-18 - tablet by ity of tablet 00:00: 04:59 mouth 2 [place] 00 :00 (two) Medical times Branch daily with meals for 30 days. NIFEdipine 2021- No [id number] 60mg Take 1 [facility] ER 60 mg -19 06- tablet by ity o f tablet 00:00: 04:59 mouth 2 [place] 00 :00 ([facility] times [facility] daily for 30 days. atorvastati 2021- No [id number] 40mg Take 1 Univers n 40 mg 05-22 tablet by ity of tablet 00:00: 04:59 mouth at [place] 00 :00 bedtime Medical for 30 Branch days. carvediloL 2021- No [id number] 6.25mg Take 1 [facility] 6.25 mg 05-22 tablet by ity of tablet 00:00: 04:59 mouth 2 [place] 00 :00 ([facility]) [facility] times [facility] daily with meals for 30 days. NIFEdipine 2021- No [id number] 60mg Take 1 [facility] ER 60 mg 05-22 tablet by ity o f tablet 00:00: 04:59 mouth 2 [place] 00 :00 ([facility]) [facility] times [facility] daily for 30 days. atorvastati 2021- No [id number] 40mg Take 1 [facility] n 40 mg 05-22 tablet by ity of tablet 00:00: 04:59 mouth at [place] 00 :00 bedtime Medical for 30 Branch days. carvediloL 2021- No [id number] 6.25mg Take 1 [facility] 6.25 mg 05-22 tablet by ity of tablet 00:00: 04:59 mouth 2 [place] 00 :00 ([facility]) [facility] times [facility] daily with meals for 30 days. NIFEdipine 2021- No [id number] 60mg Take 1 [facility] ER 60 mg 05-22 tablet by ity o f tablet 00:00: 04:59 mouth 2 [place] 00 :00 (two) [facility] times [facility] daily for 30 days. clopidogreL Yes 75mg [...] 2021- No 1{tbl} 1 tablet, Univers -acetaminop 2-17 02-17 Oral, ity of hen (NORCO 01:00: 00:17 [...] Until Discontinu ed, Routine vitamin b Yes [id number] 1{tbl} 1 tablet, Univers complex-vit -16 Oral, ity of [place] 15:00: DAILY, [place] c-folic 00 First dose Medica l acid on Tue (NEPHRO-VIT 05/20/21 at E) 0.8 mg 0900, tablet 1 Until tablet Discontinu ed, Routine clopidogreL 2021- No 75mg 75 mg, Uni vers (PLAVIX) 2-16 -16 Oral, ity of tablet 75 15:00: 15:04 DAILY, [place] mg 00 :38 First dose Medical on Tue05/20/21 at 0900, Until Discontinu ed, Routine atorvastati Yes [id number] 40mg 40 mg, Univers n (LIPITOR) 2-16 Oral, QHS, it y of tablet 40 03:00: First dose [place] mg 00 on [facility] 05/19/21 at Branch 2100, Until Discontinu ed, Routine NIFEdipine Yes [id number] 60mg 60 mg, U nivers ER tablet 2-16 Oral, BID, ity of 60 mg 02:00: First dose [place] 00 (after Medical last Branch modificati on) on Tue05/19/21 at 2000, Until Discontinu ed, Routine lisinopriL Yes [id number] 5mg 5 mg, [facility] (PRINIVIL,Z 2-15 Oral, ity of ESTRIL) 20:45: DAILY, [place] tablet 5 mg 00 First dose Me dical on Branch 05/19/21 at 1445, Until Discontinu ed, Routine traMADoL 0 Yes 50mg 50 mg, Univers (ULTRAM) 2-12 Oral, ity of tablet 50 21:59: Q6HPRN, [place] mg 37 Starting Medical on [facility] Branch 05/16/21 at 1559, Until Discontinu ed, Routine, Pain (scale 4-6) aspirin 0 Yes 81mg 81 mg, Univers chewable 2-12 Oral, ity of tablet 81 15:00: DAILY, [place] mg 00 First dose Medical on [facility] Branch 05/16/21 at 0900, Until Discontinu ed, Routine NIFEdipine 2021- No 60mg 60 mg, Univ ers ER tablet 05-16 02-15 Oral, ity of 60 mg 15:00: 20:33 DAILY, [place] 00 :49 First dose Medical on [facility] 05/16/21 at 0900, Until Discontinu ed, Routine Sliding Yes Subcutaneo Univ ers Scale 2-12 us, AC, ity of Insulin-Reg 13:30: First dose [place] ular + Fsbg 00 on [facility] Medica l Testing 05/16/21 at Branch [...] 05/15/21 at 1900, Until Discontinu ed, Routine
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 approving Restricted medication : NEIL THOMAS aspirin 2021- No 325mg 325 mg, Unive rs tablet 325 12 02-12 Oral, ity of mg 01:00: 01:57 ONCE, 1 [place] 00 :00 dose, On Medical Fri Branch [...] IV Push, ity of (PF)) 00:56: Q6HPRN, [place] injection 4 53 Starting Medi yoel mg on Fri Branch 05/15/21 at 1856, Until Discontinu ed, Routine, Nausea and Vomiting (N/V) acetaminoph 0 Yes 650mg 650 mg, Un kecia en 2-12 Oral, ity of (TYLENOL) 00:56: Q6HPRN, [place] tablet 650 38 Starting Medic al mg on Fri Branch 05/15/21 at 1856, Until Discontinu ed, Routine, Pain (scale 1-3), Temp > 38.5 C ondansetron 0 2021- No 4mg 4 mg, Slow Univers (ZOFRAN 05-15 IV Push, ity of (PF)) 23:30: 22:34 ONCE, 1 injection 4 00 :00 dose, On Medi yoel mg Fri Branch 05/15/21 at 1730, MATTHEW morpHINE 2021- No 4mg 4 mg, Slow Un kecia injection 4 05-15 IV Push, ity of mg 23:30: 22:34 ONCE, 1 [place] 00 :00 dose, On [facility] 05/15/21 at 1730, STAT iopamidol 2021- No [id number] 100mL 100 mL, Univers (ISOVUE 05-15 Intravenou ity o f 370-500 mL) 22:00: 22:00 s, ONCE, 1 injection 00 :00 dose, On Medica l 100 mL Fri Branch 05/15/21 at 1600, Routine aspirin 81 Yes 81mg QD Take [address] [facility] 5-27 [facility] 15:07: daily. [address] carvediloL Yes 12.5mg Take 12.[address] [facility] (COREG) 5-27 [facility] by [facility] 12[facility]5 MG 15:07: mouth 2 Medical tablet 20 (two) Center times daily with breakfast and dinner. aspirin 81 Yes 81mg QD Take [address] [facility] EC 5-27 [facility] 15:07: daily. [address] carvediloL Yes 12.5mg Take 12.5 [facility] [...] a e 1-17 l 19:15: ergocalcife Yes [id number] Q7D Take Meth ale rol 7-25 50,000 [...] 24 hr 42 l tablet ergocalcife Yes [id number] Q7D Take Meth ale rol 7-25 50,000 [...] hr 42 l tablet ergocalcife 2019-0 Yes [id number] Q7D Take Meth ale rol 7-25 50,000 [...] hr 42 l tablet ergocalcife 2019-0 Yes [id number] Q7D Take Meth ale rol 7-25 50,000 [...] hr 42 l tablet ergocalcife 2019-0 Yes [id number] Q7D Take Meth ale rol 7-25 50,000 st (VITAMIN 15:19: Units by Hospi ta D2) 50,000 42 mouth once l unit a week. capsule multivitami 2019-0 Yes 1{tbl} QD Take 1 Me thodi n 7-[address] (DAILY-LARON 15:19: mouth Hospi ta ORAL) 42 daily. l ergocalcife 2019-0 Yes [id number] Q7D Take Meth ale rol 7-25 50,000 [...] Hospita tablet 42 l ergocalcife 2019-0 Yes [id number] Q7D Take Meth ale rol 7-25 50,000 [...] hr 42 l tablet ergocalcife 2019-0 Yes [id number] Q7D Take Meth ale rol 7-25 50,000 st (VITAMIN 15:19: Units by Hospi ta D2) 50,000 42 mouth once l unit a week. capsule multivitami 2019-0 Yes 1{tbl} QD Take 1 Me thodi n 7-[address] (DAILY-LARNO 15:19: mouth Hospi ta ORAL) 42 daily. [...] hr 42 l tablet ergocalcife 2019-0 Yes [id number] Q7D Take Meth ale rol 7-25 50,000 [...] hr 42 l tablet ergocalcife 2019-0 Yes [id number] Q7D Take Meth ale rol 7-25 50,000 [...] hr 42 l tablet ergocalcife 2019-0 Yes [id number] Q7D Take Meth ale rol 7-25 50,000 [...] hr 42 l tablet ergocalcife 2019-0 Yes [id number] Q7D Take Meth ale rol 7-25 50,000 [...] hr 42 l tablet ergocalcife 2019-0 Yes [id number] Q7D Take Meth ale rol 7-25 50,000 [...] hr 42 l tablet ergocalcife 2019-0 Yes [id number] Q7D Take Meth ale rol 7-25 50,000 [...] hr 42 l tablet ergocalcife 2019-0 Yes [id number] Q7D Take Meth ale rol 7-25 50,000 [...] hr 42 l tablet ergocalcife 2019-0 Yes [id number] Q7D Take Meth ale rol 7-25 50,000 st (VITAMIN 15:19: Units by Hospi ta D2) 50,000 42 mouth once l unit a week. capsule ergocalcife 2019-0 Yes [id number] Q7D Take Meth ale rol 7-25 50,000 [...] Hospita tablet 42 l ergocalcife 2019-0 Yes [id number] Q7D Take Meth ale rol 7-25 50,000 [...] hr 42 l tablet ergocalcife 2019-0 Yes [id number] Q7D Take Meth ale rol 7-25 50,000 [...] hr 42 l tablet ergocalcife 2019-0 Yes [id number] Q7D Take Meth ale rol 7-25 50,000 [...] hr 42 l tablet ergocalcife 2019-0 Yes [id number] Q7D Take Meth ale rol 7-25 50,000 [...] hr 42 l tablet ergocalcife 2019-0 Yes [id number] Q7D Take Meth ale rol 7-25 50,000 [...] hr 42 l tablet ergocalcife 2019-0 Yes [id number] Q7D Take Meth ale rol 7-25 50,000 [...] hr 42 l tablet ergocalcife 2019-0 Yes [id number] Q7D Take Meth ale rol 7-25 50,000 [...] hr 42 l tablet ergocalcife 2019-0 Yes [id number] Q7D Take Meth ale rol 7-25 50,000 [...] hr 42 l tablet ergocalcife 2019-0 Yes [id number] Q7D Take Meth ale rol 7-25 50,000 [...] hr 42 l tablet ergocalcife 2018-0 Yes [id number] Q7D Take Meth ale rol 7-25 50,000 st (VITAMIN 15:19: Units by Hospi ta D2) 50,000 42 mouth once l unit a week. capsule multivitami 0 Yes 1{tbl} QD Take 1 Me thodi [...] tablet 00:00: Hospit a 00 l Atorvastati 0 Yes Salman AT BEDTIME [facility]oria n Calcium 7-10 Paul l 00:00: Metoprolol 0 Yes Salman TWICE Dickson kulwinder [...] Carbonate 7-09 TIMES A l 00:00: DAY [place] 00 hydrALAZINE 2019-0 Yes 1{tbl} Take 1 [...] 2021-02-02 Completed Unive rsity of 00:00:00 [facility] Influenza High Dose 2021-02-02 Completed Unive rsity of 00:00:00 [facility] Influenza High Dose 2021-02-02 Completed Unive rsity of 00:00:00 [facility] Influenza High Dose 2021-02-02 Completed Unive rsity of 00:00:00 [facility] Influenza High Dose 2021-02-02 Completed Unive rsity of 00:00:00 [facility] Influenza High Dose 2021-02-02 Completed Unive rsity of 00:00:00 [facility] Influenza High Dose 2021-02-02 Completed Unive rsity of 00:00:00 [facility] Influenza High Dose 2021-02-02 Completed Unive rsity of 00:00:00 [facility] Influenza High Dose 2021-02-02 Completed Unive rsity of 00:00:00 [facility] Influenza High Dose 2021-02-02 Completed Unive rsity of 00:00:00 [facility] Influenza High Dose 2021-02-02 Completed Unive rsity of 00:00:00 [facility] Influenza High Dose 2021-02-02 Completed Unive rsity of 00:00:00 [facility] Influenza High Dose 2021-02-02 Completed Unive rsity of 00:00:00 [facility] Influenza High Dose 2021-02-02 Completed Unive rsity of 00:00:00 [facility] Influenza High Dose 2021-02-02 Completed Unive rsity of 00:00:00 [facility] Influenza High Dose 2021-02-02 Completed Unive rsity of 00:00:00 [facility] Influenza High Dose 2021-02-02 Completed Unive rsity of 00:00:00 [facility] SARS-COV-2 COVID-19 2020-07-30 Completed Unive rsity of PFIZER VACCINE 00:00:00 [facility] SARS-COV-2 COVID-19 2020-07-30 Completed Unive rsity of PFIZER VACCINE 00:00:00 [facility] SARS-COV-2 COVID-19 2020-07-30 Completed Unive rsity of PFIZER VACCINE 00:00:00 [facility] SARS-COV-2 COVID-19 2020-07-30 Completed Unive rsity of PFIZER VACCINE 00:00:00 [facility] SARS-COV-2 COVID-19 2020-07-30 Completed Unive rsity of PFIZER VACCINE 00:00:00 [facility] SARS-COV-2 COVID-19 2020-07-30 Completed Unive rsity of PFIZER VACCINE 00:00:00 [facility] SARS-COV-2 COVID-19 2020-07-30 Completed Unive rsity of PFIZER VACCINE 00:00:00 [facility] SARS-COV-2 COVID-19 2020-07-30 Completed Unive rsity of PFIZER VACCINE 00:00:00 [facility] SARS-COV-2 COVID-19 2020-07-30 Completed Unive rsity of PFIZER VACCINE 00:00:00 [facility] SARS-COV-2 COVID-19 2020-07-30 Completed Unive rsity of PFIZER VACCINE 00:00:00 [facility] SARS-COV-2 COVID-19 2020-07-30 Completed Unive rsity of PFIZER VACCINE 00:00:00 [facility] SARS-COV-2 COVID-19 2020-07-30 Completed Unive rsity of PFIZER VACCINE 00:00:00 [facility] SARS-COV-2 COVID-19 2020-07-30 Completed Unive rsity of PFIZER VACCINE 00:00:00 [facility] SARS-COV-2 COVID-19 2020-07-30 Completed Unive rsity of PFIZER VACCINE 00:00:00 [facility] SARS-COV-2 COVID-19 2020-07-30 Completed Unive rsity of PFIZER VACCINE 00:00:00 [facility] SARS-COV-2 COVID-19 2020-07-30 Completed Unive rsity of PFIZER VACCINE 00:00:00 [facility] SARS-COV-2 COVID-19 2020-07-30 Completed Unive rsity of PFIZER VACCINE 00:00:00 [facility] SARS-COV-2 COVID-19 2020-07-11 Completed Unive rsity of PFIZER VACCINE 00:00:00 [facility] SARS-COV-2 COVID-19 2020-07-11 Completed Unive rsity of PFIZER VACCINE 00:00:00 [facility] SARS-COV-2 COVID-19 2020-07-11 Completed Unive rsity of PFIZER VACCINE 00:00:00 [facility] SARS-COV-2 COVID-19 2020-07-11 Completed Unive rsity of PFIZER VACCINE 00:00:00 [facility] SARS-COV-2 COVID-19 2020-07-11 Completed Unive rsity of PFIZER VACCINE 00:00:00 [facility] SARS-COV-2 COVID-19 2020-07-11 Completed Unive rsity of PFIZER VACCINE 00:00:00 [facility] SARS-COV-2 COVID-19 2020-07-11 Completed Unive rsity of PFIZER VACCINE 00:00:00 [facility] SARS-COV-2 COVID-19 2020-07-11 Completed Unive rsity of PFIZER VACCINE 00:00:00 [facility] SARS-COV-2 COVID-19 2020-07-11 Completed Unive rsity of PFIZER VACCINE 00:00:00 [facility] SARS-COV-2 COVID-19 2020-07-11 Completed Unive rsity of PFIZER VACCINE 00:00:00 [facility] SARS-COV-2 COVID-19 2020-07-11 Completed Unive rsity of PFIZER VACCINE 00:00:00 [facility] SARS-COV-2 COVID-19 2020-07-11 Completed Unive rsity of PFIZER VACCINE 00:00:00 [facility] SARS-COV-2 COVID-19 2020-07-11 Completed Unive rsity of PFIZER VACCINE 00:00:00 [facility] SARS-COV-2 COVID-19 2020-07-11 Completed Unive rsity of PFIZER VACCINE 00:00:00 [facility] SARS-COV-2 COVID-19 2020-07-11 Completed Unive rsity of PFIZER VACCINE 00:00:00 [facility] SARS-COV-2 COVID-19 2020-07-11 Completed Unive rsity of PFIZER VACCINE 00:00:00 [facility] SARS-COV-2 COVID-19 2020-07-11 Completed Unive rsity of PFIZER VACCINE 00:00:00 [facility] PPD (TB) 2018-03-20 Completed University of 00:00:00 [facility] PPD (TB) 2018-03-20 Completed University of 00:00:00 [facility] PPD (TB) 2018-03-20 Completed University of 00:00:00 [facility] PPD (TB) 2018-03-20 Completed University of 00:00:00 [facility] PPD (TB) 2018-03-20 Completed University of 00:00:00 [facility] PPD (TB) 2018-03-20 Completed University of 00:00:00 [facility] PPD (TB) 2018-03-20 Completed University of 00:00:00 [facility] PPD (TB) 2018-03-20 Completed University of 00:00:00 [facility] PPD (TB) 2018-03-20 Completed University of 00:00:00 [facility] PPD (TB) 2018-03-20 Completed University of 00:00:00 [facility] PPD (TB) 2018-03-20 Completed University of 00:00:00 [facility] PPD (TB) 2018-03-20 Completed University of 00:00:00 [facility] PPD (TB) 2018-03-20 Completed University of 00:00:00 [facility] PPD (TB) 2018-03-20 Completed University of 00:00:00 [facility] PPD (TB) 2018-03-20 Completed University of 00:00:00 [facility] PPD (TB) 2018-03-20 Completed University of 00:00:00 [facility] PPD (TB) 2018-03-20 Completed University of 00:00:00 [facility] Influenza Virus 2018-01-20 Completed Universit y of Vaccine - Whole 00:00:00 [facility] Influenza Virus 2018-01-20 Completed Universit y of Vaccine - Whole 00:00:00 [facility] Influenza Virus 2018-01-20 Completed Universit y of Vaccine - Whole 00:00:00 [facility] Influenza Virus 2018-01-20 Completed Universit y of Vaccine - Whole 00:00:00 [facility] Influenza Virus 2018-01-20 Completed Universit y of Vaccine - Whole 00:00:00 [facility] Influenza Virus 2018-01-20 Completed Universit y of Vaccine - Whole 00:00:00 [facility] Influenza Virus 2018-01-20 Completed Universit y of Vaccine - Whole 00:00:00 [facility] Influenza Virus 2018-01-20 Completed Universit y of Vaccine - Whole 00:00:00 [facility] Influenza Virus 2018-01-20 Completed Universit y of Vaccine - Whole 00:00:00 [facility] Influenza Virus 2018-01-20 Completed Universit y of Vaccine - Whole 00:00:00 [facility] Influenza Virus 2018-01-20 Completed Universit y of Vaccine - Whole 00:00:00 [facility] Influenza Virus 2018-01-20 Completed Universit y of Vaccine - Whole 00:00:00 [facility] Influenza Virus 2018-01-20 Completed Universit y of Vaccine - Whole 00:00:00 [facility] Influenza Virus 2018-01-20 Completed Universit y of Vaccine - Whole 00:00:00 [facility] Influenza Virus 2018-01-20 Completed Universit y of Vaccine - Whole 00:00:00 [facility] Influenza Virus 2018-01-20 Completed Universit y of Vaccine - Whole 00:00:00 [facility] Influenza Virus 2018-01-20 Completed Universit y of Vaccine - Whole 00:00:00 [facility] Pneumococcal 2014-08-02 Completed University o f Polysaccharide, 00:00:00 [facility] PPSV23 (PNEUMOVAX) Branch Pneumococcal 2014-08-02 Completed University o f Polysaccharide, 00:00:00 [facility] PPSV23 (PNEUMOVAX) Branch Pneumococcal 2014-08-02 Completed University o f Polysaccharide, 00:00:00 [facility] PPSV23 (PNEUMOVAX) Branch Pneumococcal 2014-08-02 Completed University o f Polysaccharide, 00:00:00 [facility] PPSV23 (PNEUMOVAX) Branch Pneumococcal 2014-08-02 Completed University o f Polysaccharide, 00:00:00 [facility] PPSV23 (PNEUMOVAX) Branch Pneumococcal 2014-08-02 [...] 20:09:00 139 mm[Hg] Univer sity of pressure [facility] Diastolic blood 2021-09-29 20:09:00 61 mm[Hg] Unive rsity of [facility] Heart rate 2021-09-29 20:09:00 73 /min [facility] Body temperature 2021-09-29 20:09:00 36.5 Priya [facility] Respiratory rate 2021-09-29 20:09:00 16 /min [facility] Body height 2021-09-29 20:09:00 160 cm [facility] Body weight 2021-09-29 20:09:00 61.326 kg [facility] BMI 2021-09-29 20:09:00 23.95 kg/m2 [facility] Oxygen saturation in 2021-09-29 20:09:00 93 /min [facility] of Arterial blood by [facility] Pulse oximetry Branch Systolic blood 2021-09-29 20:09:00 139 mm[Hg] Univer sity of pressure [facility] Diastolic blood 2021-09-29 20:09:00 61 mm[Hg] Unive rsity of pressure [facility] Heart rate 2021-09-29 20:09:00 73 /min [facility] Body temperature 2021-09-29 20:09:00 36.5 Priya Univ ersity of [facility] Respiratory rate 2021-09-29 20:09:00 16 /min Univ ersity of [facility] Body height 2021-09-29 20:09:00 160 cm [facility] Body weight 2021-09-29 20:09:00 61.326 kg [facility] BMI 2021-09-29 20:09:00 23.95 kg/m2 [facility] Oxygen saturation in 2021-09-29 20:09:00 93 /min University of Arterial blood by [facility] yoel Pulse oximetry Branch WEIGHT 2021-07-03 13:00:00 [...] 01:40:00 126 mm[Hg] Univer sity of pressure [facility] Diastolic blood 2021-05-23 01:40:00 46 mm[Hg] Unive rsity of [facility] Heart rate 2021-05-23 01:40:00 62 /min [facility] Body temperature 2021-05-23 01:40:[address] [facility] Respiratory rate 2021-05-23 01:40:00 16 /min Univ ersity [facility] Body weight 2021-05-23 01:40:00 67.3 kg [facility] BMI 2021-05-23 01:40:00 26.28 kg/m2 [facility] Oxygen saturation in 2021-05-22 17:16:00 93 /min [facility] Arterial blood by [facility] Pulse oximetry Branch Body height 2021-05-19 19:34:00 160 cm [facility] Systolic blood 2021-07-04 08:10:00 149 mm[Hg] [facility] Diastolic blood 2021-07-04 08:10:00 65 mm[Hg] [facility] Heart rate 2021-07-04 08:10:00 71 /min [facility] Body temperature 2021-07-04 08:10:00 36.22 Priya [facility] Respiratory rate 2021-07-04 08:10:00 18 /min [facility] Oxygen saturation in 2021-07-04 08:10:00 93 /min [facility] Arterial blood by Medical Ce nter Pulse oximetry Systolic blood 2021-07-03 14:23:00 123 mm[Hg] [facility] Diastolic blood 2021-07-03 14:23:00 60 mm[Hg] [facility] Heart rate 2021-07-03 14:23:00 70 /min [facility] Body temperature 2021-07-03 14:23:00 35.94 Priya [facility] Respiratory rate 2021-07-03 14:23:00 18 /min [facility] Oxygen saturation in 2021-07-03 14:23:00 97 /min [facility] Arterial blood by Medical Ce nter Pulse oximetry Body weight 2021-07-03 13:00:00 60.4 kg [facility] BMI 2021-07-03 13:00:00 23.59 kg/m2 [facility] Systolic blood 2021-07-03 08:18:00 156 mm[Hg] [facility] Diastolic blood 2021-07-03 08:18:00 67 mm[Hg] [facility] Heart rate 2021-07-03 08:18:00 68 /min [facility] Body temperature 2021-07-03 08:18:00 36.22 Priya [facility] Respiratory rate 2021-07-03 08:18:00 20 /min [facility] Oxygen saturation in 2021-07-03 08:18:00 94 /min [facility] Arterial blood by Medical Ce [facility]ter Pulse oximetry Heart rate 2021-07-02 10:00:00 72 /min [facility] Systolic blood 2021-07-02 08:00:00 171 mm[Hg] [facility] Diastolic blood 2021-07-02 08:00:00 78 mm[Hg] [facility] Body temperature 2021-07-02 08:00:00 36.56 Priya [facility] Respiratory rate 2021-07-02 08:00:00 20 /min [facility] Oxygen saturation in 2021-07-02 08:00:00 94 /min [facility] Arterial blood by Medical Ce nter Pulse oximetry Body weight 2021-07-02 04:21:00 62.37 kg [facility] BMI 2021-07-02 04:21:00 24.36 kg/m2 [facility] Systolic blood 2021-07-01 09:15:00 167 mm[Hg] [facility] Diastolic blood 2021-07-01 09:15:00 71 mm[Hg] [facility] Heart rate 2021-07-01 09:15:00 71 /min [facility] Respiratory rate 2021-07-01 09:15:00 14 /min [facility] Oxygen saturation in 2021-07-01 09:15:00 96 /min [facility] Arterial blood by Medical Ce [facility]ter Pulse oximetry Body temperature 2021-07-01 09:00:00 36.44 Priya [facility] Systolic blood 2021-06-29 14:24:00 169 mm[Hg] [facility] Diastolic blood 2021-06-29 14:24:00 71 mm[Hg] [facility] Heart rate 2021-06-29 14:24:00 70 /min [facility] Body temperature 2021-06-29 14:24:00 36.67 Priya [facility] Respiratory rate 2021-06-29 14:24:00 20 /min [facility] Oxygen saturation in 2021-06-29 14:24:00 98 /min [facility] Arterial blood by Medical Ce nter Pulse oximetry Systolic blood 2021-06-29 07:46:00 133 mm[Hg] [facility] Diastolic blood 2021-06-29 07:46:00 63 mm[Hg] [facility] Heart rate 2021-06-29 07:46:00 70 /min [facility] Body temperature 2021-06-29 07:46:00 36.44 Priya [facility] Respiratory rate 2021-06-29 07:46:00 20 /min [facility] Oxygen saturation in 2021-06-29 07:46:00 97 /min [facility] Arterial blood by Medical Ce nter Pulse oximetry Systolic blood 2021-06-26 10:15:00 169 mm[Hg] [facility] Diastolic blood 2021-06-26 10:15:00 66 mm[Hg] [facility] Heart rate 2021-06-26 10:15:00 71 /min [facility] Body temperature 2021-06-26 10:15:00 36.56 Priya [facility] Respiratory rate 2021-06-26 10:15:00 16 /min [facility] Oxygen saturation in 2021-06-26 10:15:00 99 /min [facility] Arterial blood by Medical Ce nter Pulse oximetry Systolic blood 2021-06-26 08:15:00 128 mm[Hg] [facility] Diastolic blood 2021-06-26 08:15:00 53 mm[Hg] [facility] Heart rate 2021-06-26 08:15:00 70 /min [facility] Body temperature 2021-06-26 08:15:00 36.5 Priya [facility] Respiratory rate 2021-06-26 08:15:00 9 /min [facility] Oxygen saturation in 2021-06-26 08:15:00 97 /min [facility] Arterial blood by Medical Ce nter Pulse oximetry Body weight 2021-06-25 00:00:00 64.5 kg [facility] BMI 2021-06-25 00:00:00 25.19 kg/m2 [facility] Body height 2021-06-13 11:09:00 160 cm [facility] Body height 2020-07-24 16:34:00 160 cm [facility] Body weight 2020-07-24 16:34:00 67 kg [facility] BMI 2020-07-24 16:34:00 26.17 kg/m2 [facility] Temperature Oral (F) 2019-02-19 22:00:00 98.3 F [facility] [place] Heart Rate 2019-02-19 22:00:00 [facility] Respitory Rate 2019-02-19 22:00:00 [facility] [place] Systolic (mm Hg) 2019-02-19 22:00:00 Dickson rial [place] Diastolic (mm Hg) 2019-02-19 22:00:00 Mem [facility] Height 2019-02-19 11:49:00 [facility] [place] Weight 2019-02-19 11:49:00 [facility] Height 2019-01-26 05:47:00 [facility] Heart Rate 2019-01-26 05:47:00 [facility] [place] Respitory Rate 2019-01-26 05:47:00 [facility] Systolic (mm Hg) 2019-01-26 05:47:00 Dickson [facility] Diastolic (mm Hg) 2019-01-26 05:47:00 Mem orial [place] Temperature Oral (F) 2019-01-26 05:19:00 101.3 F [facility] Weight 2019-01-26 01:51:00 [facility] Heart Rate 2018-10-11 20:05:00 [facility] [place] Systolic (mm Hg) 2018-10-11 20:05:00 Dickson rial [place] Diastolic (mm Hg) 2018-10-11 20:05:00 Mem [facility] Temperature Oral (F) 2018-10-11 20:00:00 98.1 F [facility] Respitory Rate 2018-10-11 20:00:00 [facility] Height 2018-10-10 13:16:00 [facility] [place] Weight 2018-10-10 13:16:00 [facility] Procedures Procedure Date / Time Performing Clinician Source Performed EXTERNAL PROVIDER RECORDS 2022-06-02 06:01:00 Doctor Unassigned, No [facility] EXTERNAL PROVIDER RECORDS 2022-04-06 06:01:00 Doctor Unassigned, No [facility] EXTERNAL PROVIDER RECORDS 2021-12-15 05:01:00 Doctor Unassigned, No [facility] EXTERNAL PROVIDER - ADC 2021-10-21 05:01:00 Doctor Unassigned, N o [facility] ARRYTHMIA IMPLANT REPORT 2021-07-06 00:00:00 Provider, Default C AIRAM [facility] POCT-GLUCOSE METER 2021-07-04 08:33:00 RussoLogan [facility] CBC (HEMOGRAM ONLY) 2021-07-04 04:37:00 Martinez Ricardo [facility] BASIC METABOLIC PANEL 2021-07-04 04:37:00 Martinez Riacrdo I [facility] MAGNESIUM 2021-07-04 04:37:00 Martinez Ricardo [facility] PHOSPHORUS 2021-07-04 04:37:00 Martinez Ricardo [facility] XR CHEST 1 VIEW PORTABLE 2021-07-04 04:30:00 Martinez Ricardo [facility] / BEDSIDE [facility] POCT-GLUCOSE METER 2021-07-03 21:18:00 RussoLogan del cid [facility] POCT-GLUCOSE METER 2021-07-03 17:40:00 RussoLogan del cid [facility] SARS-COV2/RT-PCR ([facility] & 2021-07-03 17:24:00 Martinez Ricardo [facility] REF LABS) [facility] POCT-GLUCOSE METER 2021-07-03 16:06:00 Logan Russo [facility] REPORT OF PROCEDURE - 2021-07-03 15:34:23 AmaratAngela croft [facility] ENDOSCOPY URL [facility] COLONOSCOPY 2021-07-03 15:05:[address] [facility] [facility] TISSUE EXAM 2021-07-03 15:04:00 Amaratunge, Harshinie [facility] COLONOSCOPY,POLYPECTOMY 2021-07-03 14:39:[address] [facility] COLONOSCOPY, WITH 2021-07-03 14:39:00 Amaratguerda [facility] POLYPECTOMY [facility] COLONOSCOPY 2021-07-03 14:00:[address] [facility] POCT-GLUCOSE METER 2021-07-03 13:31:00 Russo, Logan Vaca [facility] COLONOSCOPY 2021-07-03 13:00:[address] [facility] HEMODIALYSIS INPATIENT 2021-07-03 10:32:50 Wilner Aponte [facility] POCT-GLUCOSE METER 2021-07-03 08:44:00 Russo, Logan Vaca [facility] XR CHEST 1 VIEW PORTABLE 2021-07-03 05:24:00 Martinez Ricardo [facility] CBC (HEMOGRAM ONLY) 2021-07-03 03:08:00 Davion [facility] BASIC METABOLIC PANEL 2021-07-03 03:08:00 Martinez Ricardo Mendoza [facility] MAGNESIUM 2021-07-03 03:08:00 [facility] 2021-07-03 03:08:00 Martinez Ricardo [facility] POCT-GLUCOSE METER 2021-07-02 21:26:00 Russo, Logan Vaca [facility] POCT-GLUCOSE METER 2021-07-02 17:49:00 Russo, Logan Vaca [facility] POCT-GLUCOSE METER 2021-07-02 12:48:00 Russo, Logan Vaca [facility] POCT-GLUCOSE METER 2021-07-02 08:33:00 Russo, Logan Vaca [facility] XR CHEST 1 VIEW PORTABLE 2021-07-02 06:45:00 Martinez Ricardo [facility] CBC (HEMOGRAM ONLY) 2021-07-02 05:29:00 Davion Martinez [facility] BASIC METABOLIC PANEL 2021-07-02 05:29:[address] [facility] MAGNESIUM 2021-07-02 05:29:00 [facility] 2021-07-02 05:29:[address] [facility] POCT-GLUCOSE METER 2021-07-01 21:45:00 RussoLogan [facility] POCT-GLUCOSE METER 2021-07-01 17:44:00 Logan Russo [facility] POCT-GLUCOSE METER 2021-07-01 13:26:00 Logan Russo [facility] HEMODIALYSIS INPATIENT 2021-07-01 12:51:00 Jersey Costello Wilner [facility] HEMODIALYSIS INPATIENT 2021-07-01 09:16:58 Wilner Aponte [facility] POCT-GLUCOSE METER 2021-07-01 08:31:00 Logan Russo [facility] XR CHEST 1 VIEW PORTABLE 2021-07-01 05:38:00 [facility] ([facility] ONLY[facility] 2021-07-01 05:15:00 Davion Martinez [facility] BASIC METABOLIC PANEL 2021-07-01 05:15:[address] [facility] MAGNESIUM 2021-07-01 05:15:[address] [facility] PHOSPHORUS 2021-07-01 05:15:[address] [facility] POCT-GLUCOSE METER 2021-06-30 21:03:00 Logan Russo [facility] VENOGRAM 2021-06-30 18:06:00 Krzysztof Ryan [facility] POCT-GLUCOSE METER 2021-06-30 17:27:00 Russo, Logan Vaca [facility] XR ABDOMEN/KUB 1 VIEW 2021-06-30 17:21:00 Angela [facility] PORTABLE [facility] POCT-GLUCOSE METER 2021-06-30 12:24:00 Russo, Logan Vaca [facility] POCT-GLUCOSE METER 2021-06-30 08:15:00 Russo, Logan Vaca [facility] CBC (HEMOGRAM ONLY) 2021-06-30 04:40:00 Martinez Ricardo [facility] BASIC METABOLIC PANEL 2021-06-30 04:40:[address] [facility] MAGNESIUM 2021-06-30 04:40:00 Martinez Ricardo [facility] PHOSPHORUS 2021-06-30 04:40:00 [facility] 1 VIEW PORTABLE 2021-06-30 03:46:00 Martinez Ricardo [facility] PREPARE LEUKO-REDUCED RBC 2021-06-29 23:54:00 Dillon Ricardo [facility] POCT-GLUCOSE METER 2021-06-29 21:53:00 Russo, Logan Vaca [facility] POCT-GLUCOSE METER 2021-06-29 17:44:00 RussoLogan [facility] POCT-GLUCOSE METER 2021-06-29 14:20:00 RussoLogan [facility] HEMODIALYSIS INPATIENT 2021-06-29 13:25:00 Bertrand Bueno [facility] POCT-GLUCOSE METER 2021-06-29 08:39:00 Russo, Logan Vaca [facility] XR CHEST 1 VIEW PORTABLE 2021-06-29 05:20:00 Martinez Ricardo [facility] CBC (HEMOGRAM ONLY) 2021-06-29 04:49:00 Martinez Ricardo [facility] BASIC METABOLIC PANEL 2021-06-29 04:49:00 Martinez Ricardo CH I [facility] MAGNESIUM 2021-06-29 04:49:00 Martinez Ricardo [facility] PHOSPHORUS 2021-06-29 04:49:00 Martinez Ricardo [facility] POCT-GLUCOSE METER 2021-06-28 19:42:00 Logan Russo [facility] POCT-GLUCOSE METER 2021-06-28 17:22:00 Logan Russo [facility] CBC W/PLT COUNT & AUTO 2021-06-28 15:23:00 Niki [facility] CBC W/PLT COUNT & AUTO 2021-06-28 15:23:00 Niki [facility] POCT-GLUCOSE METER 2021-06-28 12:31:00 Logan Russo [facility] TRANSFUSE LEUKO-REDUCED 2021-06-28 11:03:00 Martinez [facility] RED BLOOD CELLS [facility] PREPARE LEUKO-REDUCED RBC 2021-06-28 10:49:00 Dillon Ricardo [facility] POCT-GLUCOSE METER 2021-06-28 08:32:00 Logan Russo [facility] XR CHEST 1 VIEW PORTABLE 2021-06-28 04:23:00 Martinez Ric[facility] BEDSIDE [facility] CBC (HEMOGRAM ONLY) 2021-06-28 04:05:00 Martinez Ricardo [facility] BASIC METABOLIC PANEL 2021-06-28 04:05:00 Martinez Ricardo CH I [facility] MAGNESIUM 2021-06-28 04:05:00 Martinez Ricardo [facility] PHOSPHORUS 2021-06-28 04:05:00 [facility] LEUKO-REDUCED RBC 2021-06-27 23:54:00 Dillon Ricardo [facility] POCT-GLUCOSE METER 2021-06-27 21:27:00 Russo, Logan Vaca [facility] POCT-GLUCOSE METER 2021-06-27 17:51:00 Russo, Logan Vaca [facility] POCT-GLUCOSE METER 2021-06-27 15:02:00 Russo, Logan Vaca [facility] POCT-GLUCOSE METER 2021-06-27 12:08:00 Russo, Logan Vaca [facility] POCT-GLUCOSE METER 2021-06-27 08:23:00 Russo, Logan Vaca [facility] SARS-COV2/RT-PCR ([facility] & 2021-06-27 04:13:00 Davion [facility] REF LABS) [facility] CBC (HEMOGRAM ONLY) 2021-06-27 04:08:00 [facility]OL[facility] PANEL 2021-06-27 04:08:00 Martinez Ricardo I [facility] MAGNESIUM 2021-06-27 04:08:00 Martinez Ricardo [facility] PHOSPHORUS 2021-06-27 04:08:[address] [facility] APTT 2021-06-27 04:08:00 MaryAbel hernandez [facility] PROTHROMBIN TIME/INR 2021-06-27 04:08:00 Abel Hernandez [facility] XR CHEST 1 VIEW PORTABLE 2021-06-27 03:58:00 Martinez Ric[facility] BEDSIDE [facility] POCT-GLUCOSE METER 2021-06-26 20:59:00 RussoLogan [facility] HEMODIALYSIS INPATIENT 2021-06-26 19:13:00 Wilner Aponte [facility] POCT-GLUCOSE METER 2021-06-26 18:55:00 Russo, Logan Vaca [facility] HEMOGLOBIN AND HEMATOCRIT 2021-06-26 11:31:00 Dannielle Erwin [facility] POCT-GLUCOSE METER 2021-06-26 11:15:00 Logan Russo [facility] POCT-GLUCOSE METER 2021-06-26 09:16:00 Logan Russo [facility] LASER EXTRACTION,LEAD 2021-06-26 07:30:00 Krzysztof Ryan [facility] TRANSFUSE LEUKO-REDUCED 2021-06-26 06:15:00 Martinez Ric[facility] RED BLOOD CELLS [facility] PREPARE LEUKO-REDUCED RBC 2021-06-26 06:01:00 Dillon Ricardo [facility] CBC (HEMOGRAM ONLY) 2021-06-26 03:25:00 Martinez Ricardo [facility] BASIC METABOLIC PANEL 2021-06-26 03:25:00 Martinez Ricardo I [facility] MAGNESIUM 2021-06-26 03:25:00 Martinez Ricardo [facility] PHOSPHORUS 2021-06-26 03:25:[address] [facility] APTT 2021-06-26 03:25:00 MaryAbel hernandez [facility] PROTHROMBIN TIME/INR 2021-06-26 03:25:00 MaryAbel hernandez [facility] XR CHEST 1 VIEW PORTABLE 2021-06-26 01:25:00 Martinez Ricardo [facility] BEDSIDE [facility] POCT-GLUCOSE METER 2021-06-25 21:46:00 Logan Russo [facility] TYPE AND SCREEN, 2021-06-25 18:55:00 Krzysztof Ryan [facility] AUTOMATED [facility] IR TUNNELED CATHETER 2021-06-25 17:45:00 Gurinder [facility] INSERTION [facility] POCT-GLUCOSE METER 2021-06-25 11:18:00 Logan Russo [facility] ECG 12-LEAD 2021-06-25 09:57:06 Unknown, Hl7 [facility] ECG 12-LEAD 2021-06-25 09:57:06 Unknown, Hl7 [facility] ECG 12-LEAD 2021-06-25 09:56:17 Unknown, Hl7 [facility] CBC (HEMOGRAM ONLY) 2021-06-25 02:56:00 Martinez Ricardo [facility] BASIC METABOLIC PANEL 2021-06-25 02:56:[address] [facility] MAGNESIUM 2021-06-25 02:56:00 [facility] 2021-06-25 02:56:[address] [facility] APTT 2021-06-25 02:56:00 MaryAbel hernandez [facility] PROTHROMBIN TIME/INR 2021-06-25 02:56:00 MaryAbel hernandez [facility] XR CHEST 1 VIEW PORTABLE 2021-06-25 02:31:00 Martinez Ricardo [facility] BEDS[facility] POCT-GLUCOSE METER 2021-06-24 22:02:00 RussoLogan [facility] XR ABDOMEN/KUB 1 VIEW 2021-06-24 18:29:00 Gurinder Nash [facility] POCT-GLUCOSE METER 2021-06-24 16:07:00 RussoLogan del cid [facility] POCT-GLUCOSE METER 2021-06-24 12:26:00 Logan Russo [facility] HEMODIALYSIS INPATIENT 2021-06-24 11:25:03 Wilner Aponte [facility] POCT-GLUCOSE METER 2021-06-24 08:28:00 Logan Russo [facility] CBC (HEMOGRAM ONLY) 2021-06-24 03:01:00 [facility]IC METABOLIC PANEL 2021-06-24 03:01:00 Martinez Ricardo CH I [facility] MAGNESIUM 2021-06-24 03:01:00 [facility] 2021-06-24 03:01:00 [facility] AP[facility] 2021-06-24 03:01:00 MaryAbel hernandez [facility] PROTHROMBIN TIME/INR 2021-06-24 03:01:00 MaryAbel hernandez [facility] XR CHEST 1 VIEW PORTABLE 2021-06-24 00:32:00 Davion [facility] POCT-GLUCOSE METER 2021-06-23 20:56:00 Russo, Logan Vaca [facility] POCT-GLUCOSE METER 2021-06-23 16:10:00 RussoLogan [facility] BASIC METABOLIC PANEL 2021-06-23 12:59:[address] [facility] POCT-GLUCOSE METER 2021-06-23 11:20:00 RussoLogan [facility] POCT-GLUCOSE METER 2021-06-23 07:29:00 RussoLogan [facility] BASIC METABOLIC PANEL 2021-06-23 04:49:00 [facility]ia [facility] MAGNESIUM 2021-06-23 04:49:[address] [facility] PHOSPHORUS 2021-06-23 04:49:[address] [facility] CBC (HEMOGRAM ONLY) 2021-06-23 02:41:00 Davion [facility] APTT 2021-06-23 02:41:00 MaryAbel hernandez [facility] PROTHROMBIN TIME/INR 2021-06-23 02:41:00 MaryAbel hernandez [facility] XR CHEST 1 VIEW PORTABLE 2021-06-23 01:19:00 Davion [facility] / [facility] POCT-GLUCOSE METER 2021-06-22 22:11:00 RussoLogan [facility] POCT-GLUCOSE METER 2021-06-22 18:02:00 RussoLogan [facility] 2D ECHO W/ DOPPLER 2021-06-22 15:55:38 Lupis Erwin CH, I [facility] (CW/PW/COLOREast [facility] BASIC METABOLIC PANEL 2021-06-22 14:30:00 Omaira Manzo [facility] POCT-GLUCOSE METER 2021-06-22 12:25:00 Logan Russo [facility] HEMODIALYSIS INPATIENT 2021-06-22 11:44:15 Wilner Aponte [facility] OXYGEN SATURATION, 2021-06-22 10:35:00 Lupis Erwin CH, I [facility] BASIC METABOLIC PANEL 2021-06-22 05:37:[address] [facility] CBC (HEMOGRAM ONLY) 2021-06-22 01:34:00 Davion [facility] APTT 2021-06-22 01:34:00 Mary [facility] PROTHROMBIN TIME/INR 2021-06-22 01:34:00 Abel Hernandez [facility] BASIC METABOLIC PANEL 2021-06-22 01:33:00 [facility] MAGNESIUM 2021-06-22 01:33:[address] [facility] PHOSPHORUS 2021-06-22 01:33:[address] [facility] XR CHEST 1 VIEW PORTABLE 2021-06-22 01:05:00 Davion [facility] / BEDSIDE [facility] POCT-GLUCOSE METER 2021-06-21 21:09:00 RussoLogan [facility] POCT-GLUCOSE METER 2021-06-21 18:58:00 RussoLogan [facility] POCT-GLUCOSE METER 2021-06-21 13:30:00 RussoLogan [facility] BASIC METABOLIC PANEL 2021-06-21 13:29:[address] [facility] PREPARE LEUKO-REDUCED RBC 2021-06-21 03:28:00 Derick Carver Si [facility] BASIC METABOLIC PANEL 2021-06-21 03:21:00 [facility] 2021-06-21 03:21:00 Ahmad [facility] PHOSPHORUS 2021-06-21 03:21:00 Ahmad [facility] CBC (HEMOGRAM ONLY) 2021-06-21 03:21:00 Davion [facility] APTT 2021-06-21 03:21:00 Mary [facility] PROTHROMBIN TIME/INR 2021-06-21 03:21:00 Mary [facility]3] XR CHEST 1 VIEW PORTABLE 2021-06-21 01:34:00 Davion [facility] / BEDSIDE [facility] PREPARE LEUKO-REDUCED RBC 2021-06-20 23:54:[address] [facility] BASIC METABOLIC PANEL 2021-06-20 17:40:00 Omaira Manzo [facility] POCT-GLUCOSE METER 2021-06-20 13:33:00 RussoLogan [facility] POCT-GLUCOSE METER 2021-06-20 06:06:00 Logan Russo [facility] SARS-COV2/RT-PCR ([facility] & 2021-06-20 01:20:00 Davion [facility] REF LABS) [facility] BLOOD GAS, ARTERIAL 2021-06-20 01:20:00 MaryAbel hernandez [facility] BASIC METABOLIC PANEL 2021-06-20 01:19:00 Ahsarah [facility] MAGNESIUM 2021-06-20 01:19:00 Ahsarah [facility] PHOSPHORUS 2021-06-20 01:19:00 Roni [facility] CBC (HEMOGRAM ONLY) 2021-06-20 01:19:00 Davion [facility] APTT 2021-06-20 01:19:00 MaryAbel hernandez [facility] PROTHROMBIN TIME/INR 2021-06-20 01:19:00 MaryAbel hernandez [facility] CALCIUM, IONIZED 2021-06-20 01:19:00 Jersey Costello [facility] XR CHEST 1 VIEW PORTABLE 2021-06-20 01:05:00 Martinez Ric[facility] BED[facility] PREPARE PLATELETS 2021-06-19 23:55:00 Jameson Kuo [facility] PREPARE RBC 2021-06-19 23:54:00 Logan Russo [facility] MAGNESIUM 2021-06-19 21:32:00 Jersey Costello [facility] PH, ARTERIAL 2021-06-19 21:32:00 Jersey Costello [facility] PHOSPHORUS 2021-06-19 21:32:00 Jersey Costello [facility] BASIC METABOLIC PANEL 2021-06-19 21:32:00 Omaira Manzo [facility] POCT-GLUCOSE METER 2021-06-19 17:55:00 Logan Russo [facility] BLOOD GAS, ARTERIAL 2021-06-19 12:39:00 MaryAbel [facility] BLOOD GAS, ARTERIAL 2021-06-19 11:13:00 MaryAbel hernandez [facility] POCT-GLUCOSE METER 2021-06-19 08:41:00 Logan Russo [facility] TRANSFUSE LEUKO-REDUCED 2021-06-19 07:45:00 Derick Carver [facility] RED BLOOD CELLS [facility] BASIC METABOLIC PANEL 2021-06-19 02:14:00 Ahmapamela [facility] MAGNESIUM 2021-06-19 02:14:00 Roni [facility] PHOSPHORUS 2021-06-19 02:14:00 Roni [facility] CBC (HEMOGRAM ONLY) 2021-06-19 02:14:00 Martinez Ricardo [facility] APTT 2021-06-19 02:14:00 MaryAbel [facility] PROTHROMBIN TIME/INR 2021-06-19 02:14:00 MaryAbel [facility] BLOOD GAS, ARTERIAL 2021-06-19 02:14:00 Mary, Abel Rey [facility] OXYGEN SATURATION, 2021-06-19 02:14:00 Art Jiménez [facility] XR CHEST 1 VIEW PORTABLE 2021-06-19 01:52:00 [facility] POCT-GLUCOSE METER 2021-06-18 23:55:00 Russo, Logan Vaca [facility] PREPARE LEUKO-REDUCED RBC 2021-06-18 23:55:00 Shiva Jeter [facility] POCT-GLUCOSE METER 2021-06-18 23:03:00 Russo, Logan Vaca [facility] POCT-GLUCOSE METER 2021-06-18 21:14:00 Russo, Logan Vaca [facility] POCT-GLUCOSE METER 2021-06-18 18:54:00 Russo, Logan Vaca [facility] CBC (HEMOGRAM ONLY) 2021-06-18 18:15:00 MaryAbel [facility] BASIC METABOLIC PANEL 2021-06-18 18:15:00 Mary Abelscarlett Rey [facility] APTT 2021-06-18 18:15:00 MaryAbel [facility] PROTHROMBIN TIME/INR 2021-06-18 18:15:00 Mary Abel [facility] LACTIC ACID, ARTERIAL 2021-06-18 18:15:00 MaryAbel [facility] PHOSPHORUS 2021-06-18 18:15:00 MaryAbel [facility] MAGNESIUM 2021-06-18 18:15:00 Mary Abel [facility] BLOOD GAS, ARTERIAL 2021-06-18 18:15:00 Mary, [facility]3] OXYGEN SATURATION, 2021-06-18 18:15:[address] [facility] RRL CRITICAL LABS 2021-06-18 16:04:00 Mary [facility] (ABG,NA,K,H&H,GLUCOSE) Medical C enter CALCIUM, IONIZED 2021-06-18 16:04:00 Mary [facility]3] BLOOD GAS, ARTERIAL 2021-06-18 16:04:00 Mary [facility]3] SODIUM NA-STAT LAB 2021-06-18 16:04:00 Mary [facility] POTASSIUM-STAT LAB 2021-06-18 16:04:00 Mary, [facility] GLUCOSE-STAT LAB 2021-06-18 16:04:00 Mary [facility]3] HGB/HCT (H&H) - STAT LAB 2021-06-18 16:04:00 Mary [facility]3] PREPARE PLASMA 2021-06-18 15:44:00 Beth [facility] XR CHEST 1 VIEW PORTABLE 2021-06-18 15:33:00 Abel Hernandez [facility] / [facility]SIDE Medical Center OXYGEN SATURATION, 2021-06-18 15:03:00 Mary Abel [facility] SURGICALLY OBTAINED 2021-06-18 15:01:35 Logan Russo CHI CULTURE + GRAM STAIN Medical [facility] ter FUNGUS CULTURE + SMEAR 2021-06-18 15:01:35 Logan Russo [facility] AFB CULTURE + SMEAR 2021-06-18 15:01:35 Logan Russo CHI (NON-SPUTUM) [facility] HEMOGLOBIN AND HEMATOCRIT 2021-06-18 14:58:00 Luh Cosby CH I [facility] CBC W/PLT COUNT & AUTO 2021-06-18 14:58:00 Abel Hernandez [facility] CBC W/PLT COUNT & AUTO 2021-06-18 14:58:[address] [facility] (CELLAVISION MANUAL DIFF) 2021-06-18 14:58:00 Abel Hernandez [facility] BASIC METABOLIC PANEL 2021-06-18 14:57:00 Abel Hernandez CH I [facility] MAGNESIUM 2021-06-18 14:57:00 Abel Hernandez [facility] CALCIUM, IONIZED 2021-06-18 14:57:00 MaryAbel hernandez [facility] PROTHROMBIN TIME/INR 2021-06-18 14:57:00 Abel Hernandez [facility] APTT 2021-06-18 14:57:00 Abel Hernandez [facility] PHOSPHORUS 2021-06-18 14:57:00 Abel Hernandez [facility] POTASSIUM 2021-06-18 14:57:00 Abel Hernandez [facility] PREPARE PLATELETS 2021-06-18 14:20:00 Jameson Kuo [facility] PLATELET COUNT 2021-06-18 13:12:54 Max [facility] POCT-ACT 2021-06-18 13:08:00 Logan Russo [facility] RRL CRITICAL LABS 2021-06-18 13:05:56 [place] [facility] (ABG,NA,K,H&H,GLUCOSE) [facility] enter CALCIUM, IONIZED 2021-06-18 13:05:56 [facility] FIBRINOGEN 2021-06-18 13:05:56 Max [facility] APTT 2021-06-18 13:05:56 [place] [facility] PROTHROMBIN TIME/INR 2021-06-18 13:05:56 [facility] BLOOD GAS, ARTERIAL 2021-06-18 13:05:[address] [facility] SODIUM NA-STAT LAB 2021-06-18 13:05:[address] [facility] POTASSIUM-STAT LAB 2021-06-18 13:05:[address] [facility] GLUCOSE-STAT LAB 2021-06-18 13:05:[address] [facility] HGB/HCT (H&H) - STAT LAB 2021-06-18 13:05:[address] [facility] TRANSFUSE LEUKO-REDUCED 2021-06-18 12:46:00 MaxAsad morel [facility] PLATELETS [facility] TRANSFUSE LEUKO-REDUCED 2021-06-18 12:45:00 MaxAsad morel [facility] RRL CRITICAL LABS 2021-06-18 12:22:57 [facility] (ABG,NA,K,H&H,GLUCOSE) Medical C enter BLOOD GAS, ARTERIAL 2021-06-18 12:22:57 Logan Russo [facility] SODIUM NA-STAT LAB 2021-06-18 12:22:57 Logan Russo [facility] POTASSIUM-STAT LAB 2021-06-18 12:22:57 Logan Russo [facility] GLUCOSE-STAT LAB 2021-06-18 12:22:[address] [facility] HGB/HCT (H&H) - STAT LAB 2021-06-18 12:22:57 Logan Russo [facility] POCT-ACT 2021-06-18 12:20:00 Logan Russo [facility] RRL CRITICAL LABS 2021-06-18 12:17:57 [facility] (ABG,NA,K,H&H,GLUCOSE) Medical C enter BLOOD GAS, ARTERIAL 2021-06-18 12:17:57 Logan Russo [facility] SODIUM NA-STAT LAB 2021-06-18 12:17:57 Logan Russo [facility] POTASSIUM-STAT LAB 2021-06-18 12:17:57 Logan Russo [facility] GLUCOSE-STAT LAB 2021-06-18 12:17:[address] [facility] HGB/HCT (H&H) - STAT LAB 2021-06-18 12:17:57 Logan Russo [facility] MISCELLANEOUS LAB ORDER 2021-06-18 11:59:38 [place] [facility] PLATELET COUNT 2021-06-18 11:59:38 Max [facility] FIBRINOGEN 2021-06-18 11:59:38 [facility] PROTHROMBIN TIME/INR 2021-06-18 11:59:38 Max [facility] APTT 2021-06-18 11:59:[facility] 2021-06-18 11:43:00 Logan Russo [facility] TISSUE EXAM 2021-06-18 11:41:00 Logan Russo [facility] RRL CRITICAL LABS 2021-06-18 11:40:27 Logan Russo [facility] (ABG,NA,K,H&H,GLUCOSE) Medical C enter BLOOD GAS, ARTERIAL 2021-06-18 11:40:27 Logan Russo [facility] SODIUM NA-STAT LAB 2021-06-18 11:40:27 Logan Russo [facility] POTASSIUM-STAT LAB 2021-06-18 11:40:27 Logan Russo [facility] GLUCOSE-STAT LAB 2021-06-18 11:40:[address] [facility] HGB/HCT (H&H) - STAT LAB 2021-06-18 11:40:27 Logan Russo [facility] POCT-ACT 2021-06-18 11:15:00 Logan Russo [facility] RRL CRITICAL LABS 2021-06-18 11:13:46 Russo, [place] [facility] (ABG,NA,K,H&H,GLUCOSE) Medical C enter BLOOD GAS, ARTERIAL 2021-06-18 11:13:46 Russo, [facility] SODIUM NA-STAT LAB 2021-06-18 11:13:46 Russo, [facility] POTASSIUM-STAT LAB 2021-06-18 11:13:46 Russo, [facility] GLUCOSE-STAT LAB 2021-06-18 11:13:46 Russo, [facility] HGB/HCT (H&H) - STAT LAB 2021-06-18 11:13:46 Russo, [facility] POCT-ACT 2021-06-18 10:47:00 Russo, [facility] RRL CRITICAL LABS 2021-06-18 10:45:20 Russo, [facility] (ABG,NA,K,H&H,GLUCOSE) Medical C enter BLOOD GAS, ARTERIAL 2021-06-18 10:45:20 Russo, [facility] SODIUM NA-STAT LAB 2021-06-18 10:45:20 Russo, [facility] POTASSIUM-STAT LAB 2021-06-18 10:45:20 Russo, [facility] GLUCOSE-STAT LAB 2021-06-18 10:45:20 Russo, [facility] HGB/HCT (H&H) - STAT LAB 2021-06-18 10:45:20 Russo, [facility] POCT-ACT 2021-06-18 10:14:00 Russo, [facility] ANESTHESIA NIMCO 2021-06-18 10:03:35 Lydia Marmolejo [facility] TRANSFUSE LEUKO-REDUCED 2021-06-18 09:26:00 Asad Santana [facility] RED BLOOD CELLS [facility] RRL CRITICAL LABS 2021-06-18 08:54:20 [place], [facility] (ABG,NA,K,H&H,GLUCOSE) [facility] enter CALCIUM, IONIZED 2021-06-18 08:54:[address] [facility] BLOOD GAS, ARTERIAL 2021-06-18 08:54:20 [facility] NA-STAT [facility] 2021-06-18 08:54:[address] [facility] POTASSIUM-STAT LAB 2021-06-18 08:54:20 [facility] GLU[facility]SE-[facility] LAB 2021-06-18 08:54:20 [facility] HGB/HCT (H&H) - STAT LAB 2021-06-18 08:54:20 Asad Santana [facility] ECHOCARDIOGRAM, 2021-06-18 07:38:00 Russo, [facility] TRANSESOPHAGEAL [facility] REPAIR, MITRAL VALVE 2021-06-18 07:38:00 Russo, [facility] REPAIR, TRICUSPID VALVE 2021-06-18 07:38:00 Russo [facility] STERNOTOMY 2021-06-18 07:38:00 Russo, [facility] NIMCO 2021-06-18 07:38:00 Russo [facility] CBC W/PLT COUNT & AUTO 2021-06-18 05:37:00 Ahsarah [facility] BASIC METABOLIC PANEL 2021-06-18 05:37:00 Ahmad [facility] MAGNESIUM 2021-06-18 05:37:00 Ahmad [facility] PHOSPHORUS 2021-06-18 05:37:00 Ahmapamela [facility] CBC W/PLT COUNT & AUTO 2021-06-18 05:37[facility]-REDUCED 2021-06-17 23:31:00 Shiva [facility] RED BLOOD CELLS [facility] POCT-GLUCOSE METER 2021-06-17 21:28:00 [facility] HEMOGLOBIN AND HEMATOCRIT 2021-06-17 21:16:00 [facility] CT ABDOMEN/PELVIS WITHOUT 2021-06-17 17:07:00 [facility] IV CONTRAST [facility] XR ABDOMEN/KUB 1 VIEW 2021-06-17 16:15:00 [facility] PORTABLE [facility] MAGNESIUM 2021-06-17 15:48:00 [facility] COMPREHENSIVE METABOLIC 2021-06-17 15:48:00 [facility] PANEL [facility] HEMOGLOBIN A1C 2021-06-17 15:48:00 [facility] CBC W/PLT COUNT & AUTO 2021-06-17 15:48:00 [facility] DIFFERENTIAL [facility] PROTHROMBIN TIME/INR 2021-06-17 15:48:00 [facility] APTT 2021-06-17 15:48:00 [facility] TYPE AND SCREEN, 2021-06-17 15:48:00 [facility] AUTOMATED [facility] CBC W/PLT COUNT & AUTO 2021-06-17 15:48:00 [facility] DIFFERENTIAL [facility] ECG 12-LEAD 2021-06-17 15:31:19 [facility] HEMODIALYSIS INPATIENT 2021-06-17 08:22:41 Wilner Aponte [facility] CBC W/PLT COUNT & AUTO 2021-06-17 04:15:00 Roni [facility] BASIC METABOLIC PANEL 2021-06-17 04:15:00 Roni [facility] MAGNESIUM 2021-06-17 04:15:00 Roni [facility] PHOSPHORUS 2021-06-17 04:15:00 Ahmapamela [facility] CBC W/PLT COUNT & AUTO 2021-06-17 04:15:00 Roni [facility] POCT-GLUCOSE METER 2021-06-16 23:59:[address] [facility] POCT-GLUCOSE METER 2021-06-16 18:00:[address] [facility] [place] CEREBRAL 4 VESSEL 2021-06-16 12:55:00 Eloy [facility] ANGIOGRAM [facility] PACEMAKER CHECK WITH 2021-06-16 10:00:06 Rosa Maria [facility] REPROGRAMMING [facility] MR BRAIN WITHOUT IV 2021-06-16 09:57:00 Ladarius Jc [facility] CONTRAST Pending [facility] nter PACEMAKER CHECK WITH 2021-06-16 09:31:48 Rosa Maria [facility] REPROGRAMMING [facility] POCT-GLUCOSE METER 2021-06-16 07:18:[address] [facility] CBC W/PLT COUNT & AUTO 2021-06-16 04:21:00 Roni [facility] BASIC METABOLIC PANEL 2021-06-16 04:21:00 Roni [facility] MAGNESIUM 2021-06-16 04:21:00 Roni [facility] PHOSPHORUS 2021-06-16 04:21:00 Roni [facility] CBC W/PLT COUNT & AUTO 2021-06-16 04:21:00 Roni [facility] POCT-GLUCOSE METER 2021-06-15 21:28:[address] [facility] CTA HEART CORONARY WITH 2021-06-15 18:20:00 Roni [facility] CALCIUM EVALUATION Medical Cente r WITHOUT FFR HEPATIC FUNCTION PANEL 2021-06-15 15:18:00 Harjeet [facility], MANUAL 2021-06-15 05:54:00 Desirae Kelli Tavia [facility] PT/APTT 2021-06-15 04:16:00 Ahmad, [facility] CBC W/PLT COUNT & AUTO 2021-06-15 04:16:00 Ahmad, [facility] BASIC METABOLIC PANEL 2021-06-15 04:16:00 Ahmad, [facility] MAGNESIUM 2021-06-15 04:16:00 Ahmad, [facility] PHOSPHORUS 2021-06-15 04:16:00 Ahmad, [facility] TYPE AND SCREEN, 2021-06-15 04:16:00 Ahmad, [facility] CBC W/PLT COUNT & AUTO 2021-06-15 04:16:00 sarah [facility] POCT-GLUCOSE METER 2021-06-14 11:09:00 Ladarius Jc [facility] nter POCT-GLUCOSE METER 2021-06-14 07:31:00 Ladarius Jc [facility] nter EEG 12-26 HR CONTINUOUS 2021-06-14 06:25:[address] [facility] MONITORING WITH VIDEO [facility] CBC W/PLT COUNT & AUTO 2021-06-14 04:05:00 Roni [facility] BASIC METABOLIC PANEL 2021-06-14 04:05:00 Ahsarah [facility] MAGNESIUM 2021-06-14 04:05:00 Ahsarah [facility] PHOSPHORUS 2021-06-14 04:05:00 Ahmad [facility] CBC W/PLT COUNT & AUTO 2021-06-14 04:05:[address] [facility] POCT-GLUCOSE METER 2021-06-13 17:10:00 Ladarius Jc [facility] nter POCT-GLUCOSE METER 2021-06-13 12:44:00 Ladarius Jc tosin [facility] Ce nter HEPARIN ANTIBODY 2021-06-13 11:25:00 Kavitha Almodovar [facility] EEG 12-26 HR CONTINUOUS 2021-06-13 11:06:00 Pamela Orta [facility] MONITORING WITH VIDEO Medical Ce nter IRON, TIBC, % SAT. 2021-06-13 08:28:00 Jaron [facility] (WITHOUT FERRITIN) Medical Cente r FERRITIN 2021-06-13 08:28:00 [facility] POCT-GLUCOSE METER 2021-06-13 08:27:00 Mary Kate Gracia [facility] CBC W/PLT COUNT & AUTO 2021-06-13 03:36:00 Roni [facility] BASIC METABOLIC PANEL 2021-06-13 03:36:00 Ahmapamela [facility] MAGNESIUM 2021-06-13 03:36:00 Ahmad [facility] PHOSPHORUS 2021-06-13 03:36:00 Ahmapamela [facility] CBC W/PLT COUNT & AUTO 2021-06-13 03:36:[address] [facility] POCT-GLUCOSE METER 2021-06-13 01:48:00 Mary Kate Gracia [facility] HEMODIALYSIS INPATIENT 2021-06-12 23:02:53 Harshil Loving [facility] POCT-GLUCOSE METER 2021-06-12 18:54:00 Mary Kate Gracia [facility] SARS-COV2/RT-PCR ([facility] & 2021-06-12 17:07:00 Martinez [facility] REF LABS) [facility] EEG AWAKE AND DROWSY 2021-06-12 12:20:00 Kavitha Almodovar [facility] CT BRAIN WITHOUT IV 2021-06-12 08:15:00 Angel Saenz [facility] POCT-GLUCOSE METER 2021-06-12 07:20:00 [facility] CTA BRAIN 2021-06-12 01:53:00 Janina [facility] CTA CAROTID 2021-06-12 01:53:[address] [facility] [address] BRAIN WITHOUT IV 2021-06-12 01:31:00 Janina [facility] CBC W/PLT COUNT & AUTO 2021-06-12 01:07:00 Roni [facility] HIGH SENSITIVITY TROPONIN 2021-06-12 01:07:00 Mary Kate Gracia [facility] LACTIC ACID, VENOUS 2021-06-12 01:07:00 [facility] PROTHROMBIN TIME/INR 2021-06-12 01:07:00 Mary Kate Gracia [facility] CBC W/PLT COUNT & AUTO 2021-06-12 01:07:00 Anshul Acharya [facility] BASIC METABOLIC PANEL 2021-06-12 00:49:00 Ahsarah [facility] MAGNESIUM 2021-06-12 00:49:00 Ahmad [facility] PHOSPHORUS 2021-06-12 00:49:00 Ahmapamela [facility] ECG 12-LEAD 2021-06-12 00:43:57 Unknown, Hl7 [facility] ECG 12-LEAD 2021-06-12 00:43:57 Unknown, 7 [facility] ECG 12-LEAD 2021-06-12 00:40:07 Unknown, 7 [facility] ECG 12-LEAD 2021-06-12 00:39:50 Unknown, 7 [facility] ECG 12-LEAD 2021-06-12 00:39:50 Unknown, 7 [facility] POCT-GLUCOSE METER 2021-06-12 00:35:00 [facility] POCT-GLUCOSE METER 2021-06-11 20:12:00 [facility] POCT-GLUCOSE METER 2021-06-11 16:12:00 Samia [facility] BLOOD CULTURE 2021-06-11 11:47:00 Jocelyne De La Cruz [facility] POCT-GLUCOSE METER 2021-06-11 11:17:00 [facility] PACEMAKER CHECK 2021-06-11 10:59:25 Hernandez James [facility] POCT-GLUCOSE METER 2021-06-11 06:33:00 [facility] BLOOD CULTURE 2021-06-11 04:03:00 Jessica John [facility] CBC W/PLT COUNT & AUTO 2021-06-11 04:03:00 Ahsarah [facility] BASIC METABOLIC PANEL 2021-06-11 04:03:00 Ahmad [facility] MAGNESIUM 2021-06-11 04:03:00 Ahmad [facility] PHOSPHORUS 2021-06-11 04:03:00 Ahmad [facility] CBC W/PLT COUNT & AUTO 2021-06-11 04:03:00 Anshul Acharya [facility] POCT-BLOOD GASES, VENOUS 2021-06-10 22:25:00 [facility] POCT-SODIUM 2021-06-10 22:25:00 [facility] POCT-POTASSIUM 2021-06-10 22:25:00 [facility] POCT-HEMOGLOBIN 2021-06-10 22:25:00 [facility] POCT-HEMATOCRIT 2021-06-10 22:25:00 [facility] POCT-GLUCOSE 2021-06-10 22:25:00 Bree Graciacata SteeleEmmett [facility] CBC W/PLT COUNT & AUTO 2021-06-10 22:23:00 Jessica John Tyrel [facility] CBC W/PLT COUNT & AUTO 2021-06-10 22:23:00 Jessica John [facility] XR CHEST 1 VIEW PORTABLE 2021-06-10 22:14:00 Jessica [facility] BEDSIDE [facility] BLOOD CULTURE 2021-06-10 22:08:00 Jessica John [facility] LACTIC ACID, VENOUS 2021-06-10 22:07:00 Jessica John [facility] POCT-GLUCOSE METER 2021-06-10 21:20:00 [facility] HEMODIALYSIS INPATIENT 2021-06-10 17:49:00 Wilner Aponte [facility] POCT-GLUCOSE METER 2021-06-10 16:22:00 [facility] POCT-GLUCOSE METER 2021-06-10 11:29:00 [facility] POCT-GLUCOSE METER 2021-06-10 07:27:00 [facility] CBC W/PLT COUNT & AUTO 2021-06-10 04:36:00 Samia Tamayo [facility] BASIC METABOLIC PANEL 2021-06-10 04:36:00 AhSamia smith [facility] MAGNESIUM 2021-06-10 04:36:00 AhSamia smith [facility] PHOSPHORUS 2021-06-10 04:36:00 AhSamia smith [facility] CBC W/PLT COUNT & AUTO 2021-06-10 04:36:00 Anshul Acharya [facility] POCT-GLUCOSE METER 2021-06-09 21:22:00 Kanwal Traore [facility] POCT-GLUCOSE METER 2021-06-09 16:16:00 Haj-Isherbert, [facility] 2D ECHO W/ DOPPLER 2021-06-09 12:21:49 David Shinok [facility] (CW/PW/COLOR) [facility] TRANSESOPHAGEAL ECHO 2021-06-09 09:04:02 Jocelyne De La Cruz [facility] POCT-GLUCOSE METER 2021-06-09 06:11:00 Haj-Ismail, [facility] CBC W/PLT COUNT & AUTO 2021-06-09 03:34:00 [facility] BASIC METABOLIC PANEL 2021-06-09 03:34:00 [facility] 2021-06-09 03:34:00 Ahmad [facility] PHOSPHORUS 2021-06-09 03:34:00 [facility] CBC W/PLT COUNT & AUTO 2021-06-09 03:34:00 Anshul Acharya [facility] POCT-GLUCOSE METER 2021-06-08 21:03:00 [facility] HEM[facility] INPATIENT 2021-06-08 15:21:58 [facility] COLOR-FLOW MAPPING 2021-06-08 13:42:25 Jocelyne De La Cruz [facility] CONT WAVE PULSED DOPPLER 2021-06-08 13:42:25 Tamar De La Cruz [facility] PTH, INTACT 2021-06-08 10:29:00 Wilner Aponte [facility] HEPATITIS B SURFACE 2021-06-08 10:29:00 Real Delgado [facility] HEPATITIS PANEL, ACUTE 2021-06-08 10:29:00 Haj-Ismail, [facility] POCT-GLUCOSE METER 2021-06-08 06:59:00 Jameson Kuo [facility] CBC W/PLT COUNT & AUTO 2021-06-08 05:00:00 Ahmad, [facility] BASIC METABOLIC PANEL 2021-06-08 05:00:00 oRni [facility] MAGNESIUM 2021-06-08 05:00:00 Rnoi [facility] PHOSPHORUS 2021-06-08 05:00:00 [facility] PROTHROMBIN TIME/INR 2021-06-08 05:00:00 Anshul Acharya [facility] VITAMIN B12 2021-06-08 05:00:00 Anshul Acharya [facility] FERRITIN 2021-06-08 05:00:00 [facility] IRON, TIBC, % SAT. 2021-06-08 05:00:00 Jersey Pravin [facility] (WITHOUT FERRITIN) [facility] VITAMIN D, 25-HYDROXY 2021-06-08 05:00:00 [facility] CBC W/PLT COUNT & AUTO 2021-06-08 05:00:00 Anshul Acharya [facility] US ABDOMEN LIMITED 2021-06-08 04:51:00 Anshul Acharya [facility] SARS-COV2/RT-PCR ([facility] & 2021-06-07 23:43:00 Angel Saenz [facility] REF LABS) [facility] POCT-GLUCOSE METER 2021-06-07 23:11:00 Jameson Kuo [facility] ECG 12-LEAD 2021-06-07 23:06:38 Unknown, Hl7 [facility] ECG 12-LEAD 2021-06-07 23:06:38 Unknown, Hl7 [facility] BLOOD CULTURE 2021-06-07 21:48:00 Anshul Acharya [facility] BLOOD CULTURE 2021-06-07 21:41:00 Anshul Acharya [facility] CBC W/PLT COUNT & AUTO 2021-06-07 21:41:00 Anshul Acharya [facility] COMPREHENSIVE METABOLIC 2021-06-07 21:41:00 Patrizia Anshul Tyrel CONTRERAS [facility] VANCOMYCIN LEVEL, RANDOM 2021-06-07 21:41:00 Anshul Acharya [facility] CBC W/PLT COUNT & AUTO 2021-06-07 21:41:00 PatriziaAnshul DIANE S t [facility] DIFFERENTIAL [facility] XR CHEST 1 VIEW PORTABLE 2021-06-07 19:59:[address] [facility] / BEDSIDE [facility] VASCULAR DIAGRAM -SCAN 2021-06-07 00:00:00 Provider, Default [facility] CARDIAC CATH REPORT - 2021-06-07 00:00:00 Provider, Default [facility] ARRYTHMIA IMPLANT REPORT 2021-06-07 00:00:00 Provider, Judah Sarah [place] [facility] POCT GLUCOSE (AUTOMATED) 2021-05-22 23:19:00 Neil Thomas [facility] POCT GLUCOSE (AUTOMATED) 2021-05-22 17:36:00 Neil Thomas [facility] POCT GLUCOSE (AUTOMATED) 2021-05-22 13:43:00 Neil hTomas [facility] BASIC METABOLIC PANEL 2021-05-22 09:37:00 José Miguel [facility] (NA, K, CL, CO2, GLUCOSE, Medica l Branch BUN, CREATININE, CA) CBC WITH DIFF 2021-05-22 09:37:00 José Miguel Horn [facility] GLUCOSE 2021-05-21 23:41:00 Ricki [facility] PROTEIN TOTAL 2021-05-21 23:41:00 Ricki [facility] LACTATE DEHYDROGENASE 2021-05-21 23:41:00 aCndido Robison [facility] TROPONIN I 2021-05-21 23:41:00 Tameka Mcdaniels [facility] N-TERMINAL PRO-BNP 2021-05-21 23:41:00 José Miguel [facility] POCT GLUCOSE (AUTOMATED) 2021-05-21 23:14:00 Neil Thomas [facility] POCT GLUCOSE (AUTOMATED) 2021-05-21 16:58:00 Neil Thomas [facility] POCT GLUCOSE (AUTOMATED) 2021-05-21 13:47:00 Neil Thomas [facility] XR CHEST 1 VW 2021-05-21 13:06:23 Gt [facility] VITAMIN B12, LEVEL 2021-05-21 12:51:00 Gt [facility] FOLATE 2021-05-21 12:51:00 Gt [facility] TROPONIN I 2021-05-21 12:51:00 Gt [facility] IRON PANEL 2021-05-21 12:51:00 Gt [facility] VITAMIN D, 25-OH 2021-05-21 12:51:00 [facility] FERR[facility]IN SERUM 2021-05-21 09:32:00 Gt [facility] TROPONIN I 2021-05-21 09:32:00 Gt [facility] HEPATIC FUNCTION PANEL 2021-05-21 09:32:00 Gt becky [facility] ([id number]) (ALB,T.PRO,BILI Medical Branch T,BU/BC,ALT,AST,ALK PHOS) BASIC METABOLIC PANEL 2021-05-21 09:32:00 José Miguel [facility] (NA, K, CL, CO2, GLUCOSE, Medica l Branch BUN, CREATININE, CA) DIFF CONSULT 2021-05-21 09:32:00 Gt [facility] CBC WITH DIFF 2021-05-21 09:32:00 [facility]MINAL PRO-BNP 2021-05-21 09:32:00 Gt [facility] POCT GLUCOSE (AUTOMATED) 2021-05-21 02:22:00 Neil Thomas [facility] XR CHEST 1 VW 2021-05-20 22:21:01 Ricki [facility] POCT GLUCOSE (AUTOMATED) 2021-05-20 22:14:[address] [facility] PH, BODY FLUID 2021-05-20 22:04:00 Ricki [facility] T.PROTEIN BODY FLUID 2021-05-20 22:04:00 Candido [facility] BODY FLUID DIRECT COUNT 2021-05-20 22:04:00 Nemesio [facility] CYTO PLEURAL FLUID 2021-05-20 22:04:00 Ricki [facility] LDH TOTAL BODY FLUID 2021-05-20 22:04:00 Holly Redding [facility] AFB CULTURE 2021-05-20 21:50:00 Ricki [facility] BODY FLUID 2021-05-20 21:50:00 Ricki [facility] CULTURE(AEROBIC/ANAEROBIC Medica l Branch ) XR CHEST 1 VW 2021-05-20 19:13:56 Ricki [facility] POCT GLUCOSE (AUTOMATED) 2021-05-20 16:59:[address] [facility] POCT GLUCOSE (AUTOMATED) 2021-05-20 13:25:00 Neil Thomas [facility] LACTATE DEHYDROGENASE 2021-05-20 09:50:00 Holly Redding [facility] BASIC METABOLIC PANEL 2021-05-20 09:50:00 [facility] (NA, K, CL, CO2, GLUCOSE, Medica l Branch BUN, CREATININE, CA) PROTHROMBIN TIME / INR 2021-05-20 09:50:[address] [facility] N-TERMINAL PRO-BNP 2021-05-20 09:50:00 Tameka Mcdaniels [facility] POCT GLUCOSE (AUTOMATED) 2021-05-20 01:35:[address] [facility] POCT GLUCOSE (AUTOMATED) 2021-05-19 23:08:00 Neil Thomas [facility] POCT GLUCOSE (AUTOMATED) 2021-05-19 17:39:00 [facility]) 2021-05-19 14:04:[address] [facility] BASIC METABOLIC PANEL 2021-05-19 11:24:00 [facility] (NA, K, CL, CO2, GLUCOSE, Medica l Branch BUN, CREATININE, CA) CBC WITH DIFF 2021-05-19 11:24:00 [facility] f [facility] N-TERMINAL PRO-BNP 2021-05-19 11:24:00 Tameka Mcdaniels [facility] HEPATITIS B SURFACE 2021-05-19 03:18:00 Akhil-Diana, [facility] ANTIBODY [facility] HEPATITIS B SURFACE 2021-05-19 03:18:00 Samantha, [facility] ANTIGEN [facility] POCT GLUCOSE (AUTOMATED) 2021-05-19 03:11:[address] [facility] POCT GLUCOSE (AUTOMATED) 2021-05-18 22:43:[address] [facility] POCT GLUCOSE (AUTOMATED) 2021-05-18 17:46:[address] [facility] POCT GLUCOSE (AUTOMATED) 2021-05-18 17:04:[address] [facility] BASIC METABOLIC PANEL 2021-05-18 15:05:00 Holly Redding [facility] (NA, K, CL, CO2, GLUCOSE, Medica l Branch BUN, CREATININE, CA) POCT GLUCOSE (AUTOMATED) 2021-05-18 13:20:[address] [facility] DISCLOSURE AND CONSENT, 2021-05-18 06:01:00 Doctor Unassigned, N o [facility] MEDICAL AND SURGICAL Name [facility] PROCEDURES POCT GLUCOSE (AUTOMATED) 2021-05-17 22:51:[address] [facility] POCT GLUCOSE (AUTOMATED) 2021-05-17 17:51:00 [facility] (TTE) 2021-05-17 15:04:37 [facility] POCT GLUCOSE (AUTOMATED) 2021-05-17 14:14:00 William [facility] PHOSPHORUS 2021-05-17 10:03:00 [facility] MAGN[facility]UM 2021-05-17 10:03:00 William [facility] BASIC METABOLIC PANEL 2021-05-17 10:03:00 William [facility] (NA, K, CL, CO2, GLUCOSE, Medica l Branch BUN, CREATININE, CA) CBC WITHOUT DIFF 2021-05-17 10:03:00 William [facility] N-TERMINAL PRO-BNP 2021-05-17 10:03:00 William [facility] POCT GLUCOSE (AUTOMATED) 2021-05-16 22:34:00 William [facility] POCT GLUCOSE (AUTOMATED) 2021-05-16 17:41:00 William [facility] POCT GLUCOSE (AUTOMATED) 2021-05-16 13:39:00 William [facility] MAGNESIUM 2021-05-16 08:09:00 William [facility] TROPONIN I 2021-05-16 08:09:00 William [facility] BASIC METABOLIC PANEL 2021-05-16 08:09:00 [facility] (NA, K, CL, CO2, GLUCOSE, Medica l Branch BUN, CREATININE, CA) LIPID PANEL ([id number])(TOTAL 2021-05-16 08:09:00 Neil Thomas [facility] TRIGLYCERIDES, HDL) CBC WITHOUT DIFF 2021-05-16 08:09:00 William [facility] GLYCOSYLATED HEMOGLOBIN 2021-05-16 08:09:00 Thais [facility] (A1C) Medical Branch PHOSPHORUS 2021-05-16 02:06[facility]00 [facility] 2021-05-16 02:06:00 William [facility] POCT GLUCOSE (AUTOMATED) 2021-05-16 02:05:00 Neil Thomas [facility] COVID-19 (ID NOW RAPID 2021-05-15 22:31:00 [facility] TESTING) Medical Branch LAB ONLY COVID 2021-05-15 22:31:00 Singer [facility] INTERPRETATION [facility] XR KNEE <3 VW RIGHT 2021-05-15 22:12:44 Dangelo Ibrahim [facility] CT CHEST PULMONARY 2021-05-15 22:00:00 Singer [facility] ANGIOGRAM Medical Branch XR CHEST 1 VW 2021-05-15 20:32:18 Singer [facility] LIPASE 2021-05-15 19:37:00 Singer [facility] MAGNESIUM 2021-05-15 19:37:00 Singer [facility] TROPONIN I 2021-05-15 19:37:00 Singer [facility] THYROID STIMULATING 2021-05-15 19:37:00 William [facility] HORMONE [facility] COMP. METABOLIC PANEL 2021-05-15 19:37:00 Dangelo Ibrahim [facility] ([id number]) [facility] CBC WITH DIFF 2021-05-15 19:37:00 Singer [facility] GLYCOSYLATED HEMOGLOBIN 2021-05-15 19:37:00 William [facility] PROTHROMBIN TIME / INR 2021-05-15 19:37:00 Dangelo Ibrahim [facility] D-DIMER 2021-05-15 19:37:00 Singer [facility] N-TERMINAL PRO-BNP 2021-05-15 19:37:00 Ibrahim, [facility] HB ECG ROUTINE & RHYTHM 2021-05-15 19:13:17 Dangelo Ibrahim [facility] NOTICE OF PRIVACY 2021-05-15 18:55:45 Doctor Unassigned, No [facility] CONSENT/REFUSAL FOR 2021-05-15 18:55:20 Doctor Unassigned, No [facility] [place] [facility] TREAT[facility] HOSPITAL ADMISSION 2021-05-15 06:01:00 Doctor Unassigned, No [facility] Chest Single View 2019-02-17 00:00:00 [facility] ermivelisse Influenza Type A Antigen 2019-02-17 00:00:00 Mem orial [place] Screen Influenza Type B Antigen 2019-02-17 00:00:[address] [facility] eugene Juanito Screen Culture & Sensitivity 2019-01-25 00:00:00 Talisha Suarez Chest Pa And Lat (2 2019-01-25 00:[facility] Anaerobic Blood Culture 2018-10-09 00:00:00 Dickson Solomon Aerobic Blood Culture 2018-10-09 00:00:00 Talisha Suarez Gram Stain 2018-10-09 00:00:00 [facility] hernandez Anaerobic Culture 2018-10-09 00:00:00 [facility] Saurabh rogers Plan of Care Planned Activity Planned Date Details Comments Source Future Scheduled 2031-07-[address] [facility] colon (procedure) [code = 098100905] Future Scheduled 2031-07-[address] [facility] 00:00:00 [facility] colon (procedure) [code = 407822688] Future Scheduled 2031-07-[address] [facility] 00:00:00 [facility] colon (procedure) [code = 169485428] Future Scheduled 2031-07-[address] [facility] 00:00:00 [facility] colon (procedure) [code = 970988469] Future Scheduled 2031-07-[address] [facility] 00:00:00 [facility] colon (procedure) [code = 920828838] Future Scheduled 2031-07-[address] [facility] 00:00:00 [facility] colon (procedure) [code = 606990882] Future Scheduled 2031-07-[address] [facility] 00:00:00 [facility] colon (procedure) [code = 095311378] Future Scheduled 2031-07-[address] [facility] 00:00:00 [facility] colon (procedure) [code = 781691292] Future Scheduled 2031-07-[address] [facility] 00:00:00 [facility] colon (procedure) [code = 678570742] Future Scheduled 2031-07-[address] [facility] 00:00:00 [facility] colon (procedure) [code = 648612543] Future Scheduled 2031-07-[address] [facility] 00:00:00 [facility] colon (procedure) [code = 119422325] Future Scheduled 2031-07-[address] [facility] 00:00:00 [facility] colon (procedure) [code = 939708217] Future Scheduled 2031-07-[address] [facility] 00:00:00 [facility] colon (procedure) [code = 078187734] Future Scheduled 2031-07-[address] [facility] 00:00:00 [facility] colon (procedure) [code = 232210295] Future Scheduled 2031-07-[address] [facility] 00:00:00 [facility] colon (procedure) [code = 091528611] Future Scheduled 2031-07-[address] [facility] 00:00:00 [facility] colon (procedure) [code = 367189733] Future Scheduled 2031-07-[address] [facility] 00:00:00 [facility] colon (procedure) [code = 921748216] Future Scheduled 2031-07-[address] [facility] 00:00:00 [facility] colon (procedure) [code = 441752062] Future Scheduled 2031-07-[address] [facility] 00:00:00 [facility] colon (procedure) [code = 607582751] Future Scheduled 2031-07-[address] [facility] 00:00:00 [facility] colon (procedure) [code = 635686088] Future Scheduled 2031-07-[address] [facility] 00:00:00 [facility] colon (procedure) [code = 945262892] Future Scheduled 2031-07-[address] [facility] 00:00:00 [facility] colon (procedure) [code = 583710790] Future Scheduled 2031-07-[address] [facility] 00:00:00 [facility] colon (procedure) [code = 242397057] Future Scheduled 2031-07-[address] [facility] 00:00:00 [facility] colon (procedure) [code = 935692491] Future Scheduled 2031-07-[address] [facility] 00:00:00 [facility] colon (procedure) [code = 120478984] Future Scheduled 2031-07-[address] [facility] 00:00:00 [facility] colon (procedure) [code = 574584224] Future Scheduled 2031-07-[address] [facility] 00:00:00 [facility] colon (procedure) [code = 045841930] Future Scheduled 2031-07-[address] [facility] 00:00:00 [facility] colon (procedure) [code = 567746337] Future Scheduled 2023-04-[address] [facility] 00:00:00 [facility] cervix (procedure) [code = 172551090] Future Scheduled 2023-04-[address] [facility] 00:00:00 [facility] cervix (procedure) [code = 006618202] Future Scheduled 2023-04-[address] [facility] 00:00:00 [facility] cervix (procedure) [code = 762097297] Future Scheduled 2023-04-[address] [facility] 00:00:00 [facility] cervix (procedure) [code = 039558402] Future Scheduled 2023-04-[address] [facility] 00:00:00 [facility] cervix (procedure) [code = 789721966] Future Scheduled 2023-04-[address] [facility] 00:00:00 [facility] cervix (procedure) [code = 568014648] Future Scheduled 2023-04-[address] [facility] 00:00:00 [facility] cervix (procedure) [code = 247057148] Future Scheduled 2023-04-[address] [facility] 00:00:00 [facility] cervix (procedure) [code = 928021443] Future Scheduled 2023-04-[address] [facility] 00:00:00 [facility] cervix (procedure) [code = 180279502] Future Scheduled 2023-04-[address] [facility] 00:00:00 [facility] cervix (procedure) [code = 537844799] Future Scheduled 2023-04-[address] [facility] 00:00:00 [facility] cervix (procedure) [code = 847611527] Future Scheduled 2023-04-[address] [facility] 00:00:00 [facility] cervix (procedure) [code = 507025054] Future Scheduled 2023-04-[address] [facility] 00:00:00 [facility] cervix (procedure) [code = 333717955] Future Scheduled 2023-04-[address] [facility] 00:00:00 [facility] cervix (procedure) [code = 515330221] Future Scheduled 2023-04-[address] [facility] 00:00:00 [facility] cervix (procedure) [code = 973088879] Future Scheduled 2023-04-[address] [facility] 00:00:00 [facility] cervix (procedure) [code = 516457257] Future Scheduled 2023-04-[address] [facility] 00:00:00 [facility] cervix (procedure) [code = 828809002] Future Scheduled 2023-04-[address] [facility] 00:00:00 [facility] cervix (procedure) [code = 342180606] Future Scheduled 2023-04-[address] [facility] 00:00:00 [facility] cervix (procedure) [code = 464759295] Future Scheduled 2023-04-[address] [facility] 00:00:00 [facility] cervix (procedure) [code = 821939369] Future Scheduled 2023-04-[address] [facility] 00:00:00 [facility] cervix (procedure) [code = 432183978] Future Scheduled 2023-04-[address] [facility] 00:00:00 [facility] cervix (procedure) [code = 675661678] Future Scheduled 2023-04-[address] [facility] 00:00:00 [facility] cervix (procedure) [code = 240695407] Future Scheduled 2022-12-[address] [facility] Test 00:00:00 (Season Ended) [code = Medic al Center INFLUENZA VACCINE (Season Ended)] Future Scheduled 2022-12-[address] [facility] Test 00:00:00 (Season Ended) [code = Medic [facility] Center INFLUENZA VACCINE (Season Ended)] Future Scheduled 2022-12-[address] [facility] Test 00:00:00 (Season Ended) [code = [facility] Center Influenza Vaccine (Season Ended)] Future Scheduled 2022-10-13 PNEUMOCOCCAL VACCINE [...] - PCV)] Future Scheduled 2022-09-16 Screening for [facility] Test 14:03:46 malignant neoplasm of colon (procedure) [code = 417241696] Future Scheduled 2022-09-16 Screening for [facility] Test 14:03:46 malignant neoplasm of colon (procedure) [code = 212096186] Future Scheduled 2022-09-16 COVID-19 VACCINE (#1) [facility] Test 14:03:46 [code = COVID-19 VACCINE (#1)] Future Scheduled 2022-09-16 Screening for [facility] Test 14:03:46 malignant neoplasm of cervix (procedure) [code = 231726909] Future Scheduled 2022-09-16 Screening for [facility] Test 14:03:46 malignant neoplasm of colon (procedure) [code = 154008107] Future Scheduled 2022-09-16 SHINGLES [facility]ACCINES ([facility] 14:03:46 of 2) [code = SHINGLES VACCINES (1 of 2)] Future Scheduled 2022-09-16 Screening for [facility] Test 14:03:46 malignant neoplasm of colon (procedure) [code = 527593653] Future Scheduled 2022-09-16 Screening for [facility] Test 14:03:46 malignant neoplasm of colon (procedure) [code = 181378000] Future Scheduled 2022-09-16 BREAST CANCER [facility] Test 14:03:46 SCREENING [code = BREAST CANCER SCREENING] Future Scheduled 2022-09-16 65+ [facility]AL [facility] 14:03:46 VACCINE (1 - PCV) [code = 65+ PNEUMOCOCCAL VACCINE (1 - PCV)] Future Scheduled 2022-09-16 [facility]ZA [facility]ACCINE [facility] 14:03:46 [code = INFLUENZA VACCINE] Future Scheduled 2022-09-16 Screening for [facility] Test 14:03:46 malignant neoplasm of colon (procedure) [code = 032757100] Future Scheduled 2022-09-16 Screening for [facility] Test 14:03:46 malignant neoplasm of colon (procedure) [code = 598510419] Future Scheduled 2022-09-16 COVID-19 VACCINE (#1) [facility] Test 14:03:46 [code = COVID-19 VACCINE (#1)] Future Scheduled 2022-09-16 Screening for [facility] Test 14:03:46 malignant neoplasm of cervix (procedure) [code = 268639144] Future Scheduled 2022-09-16 Screening for [facility] Test 14:03:46 malignant neoplasm of colon (procedure) [code = 615574317] Future Scheduled 2022-09-16 SHINGLES VACCINES (1 [facility] 14:03:46 of 2) [code = SHINGLES VACCINES (1 of 2)] Future Scheduled 2022-09-16 Screening for [facility] Test 14:03:46 malignant neoplasm of colon (procedure) [code = 696733780] Future Scheduled 2022-09-16 Screening for [facility] Test 14:03:46 malignant neoplasm of colon (procedure) [code = 652711409] Future Scheduled 2022-09-16 BREAST CANCER [facility] Test 14:03:46 SCREENING [code = BREAST CANCER SCREENING] Future Scheduled 2022-09-16 65+ [facility] 14:03:46 VACCINE (1 - PCV) [code = 65+ PNEUMOCOCCAL VACCINE (1 - PCV)] Future Scheduled 2022-09-16 [facility]FLUENZA VACCINE [facility] Test 14:03:46 [code = INFLUENZA VACCINE] Future Scheduled 2022-09-09 Screening for [facility] Test 09:34:57 malignant neoplasm of colon (procedure) [code = 344285347] Future Scheduled 2022-09-09 Screening for [facility] Test 09:34:57 malignant neoplasm of colon (procedure) [code = 686936103] Future Scheduled 2022-09-09 COVID-19 VACCINE (#1) [facility] 09:34:57 [code = COVID-19 VACCINE (#1)] Future Scheduled 2022-09-09 Screening for [facility] Test 09:34:57 malignant neoplasm of cervix (procedure) [code = 215853292] Future Scheduled 2022-09-09 Screening for [facility] Test 09:34:57 malignant neoplasm of colon (procedure) [code = 713577788] Future Scheduled 2022-09-09 SHINGLES VACCINES (1 [facility] 09:34:57 of 2) [code = SHINGLES VACCINES (1 of 2)] Future Scheduled 2022-09-09 Screening for [facility] Test 09:34:57 malignant neoplasm of colon (procedure) [code = 566474916] Future Scheduled 2022-09-09 Screening for [facility] Test 09:34:57 malignant neoplasm of colon (procedure) [code = 587889615] Future Scheduled 2022-09-09 BREAST CANCER [facility] Test 09:34:57 SCREENING [code = BREAST CANCER SCREENING] Future Scheduled 2022-09-09 65+ [facility] 09:34:57 VACCINE (1 - PCV) [...] PPSV23)] Future Scheduled 2022-07-09 COVID-19 VACCINE (#1) [facility] Test 07:31:16 [code = COVID-19 VACCINE (#1)] Future Scheduled 2022-07-09 Screening for [facility] Test 07:31:16 malignant neoplasm of cervix (procedure) [code = 830893219] Future Scheduled 2022-07-09 COLONOSCOPY SCREENING [facility] Test 07:31:16 [code = COLONOSCOPY SCREENING] Future Scheduled 2022-07-09 SHINGLES VACCINES (1 Met [facility] Test 07:31:16 of 2) [code = SHINGLES VACCINES (1 of 2)] Future Scheduled 2022-07-09 BREAST CANCER [facility] Test 07:31:16 SCREENING [code = BREAST CANCER SCREENING] Future Scheduled 2022-07-[address] [facility] Test 07:31:16 [code = INFLUENZA VACCINE] [...] SCREENING] Future Scheduled 2022-03-26 COVID-19 VACCINE (#1) [facility] Test 05:32:52 [code = COVID-19 VACCINE (#1)] Future Scheduled 2022-03-26 Screening for [facility] Test 05:32:52 malignant neoplasm of cervix (procedure) [code = 886993391] Future Scheduled 2022-03-26 COLONOSCOPY SCREENING [facility] Test 05:32:52 [code = COLONOSCOPY SCREENING] Future Scheduled 2022-03-26 SHINGLES VACCINES (1 Met [facility] Test 05:32:52 of 2) [code = SHINGLES VACCINES (1 of 2)] Future Scheduled 2022-03-26 BREAST CANCER [facility] Test 05:32:52 SCREENING [code = BREAST CANCER SCREENING] Future Scheduled 2022-03-26 INFL[facility]ZA VACCINE [facility] 05:32:52 [code = INFLUENZA VACCINE] Future Scheduled 2022-03-26 COVID-19 VACCINE (#1) [facility] Test 05:32:52 [code = COVID-19 VACCINE (#1)] Future Scheduled 2022-03-26 Screening for [facility] Test 05:32:52 malignant neoplasm of cervix (procedure) [code = 210925838] Future Scheduled 2022-03-26 COLONOSCOPY SCREENING [facility] Test 05:32:52 [code = COLONOSCOPY SCREENING] Future Scheduled 2022-03-26 SHINGLES VACCINES (1 [facility] Test 05:32:52 of 2) [code = SHINGLES VACCINES (1 of 2)] Future Scheduled 2022-03-26 BREAST CANCER [facility] Test 05:32:52 SCREENING [code = BREAST CANCER SCREENING] Future Scheduled 2022-03-26 INFL[facility]ZA VACCINE [facility] 05:32:52 [code = INFLUENZA VACCINE] Future Scheduled 2022-03-26 COVID-19 VACCINE (#1) [facility] Test 05:32:52 [code = COVID-19 VACCINE (#1)] Future Scheduled 2022-03-26 Screening [facility] Test 05:32:52 malignant neoplasm of cervix (procedure) [code = 466308424] Future Scheduled 2022-03-26 COLONOSCOPY SCREENING [facility] Test 05:32:52 [code = COLONOSCOPY SCREENING] Future Scheduled 2022-03-26 SHINGLES VACCINES (1 [facility] Test 05:32:52 of 2) [code = SHINGLES VACCINES (1 of 2)] Future Scheduled 2022-03-26 BREAST CANCER [facility] Test 05:32:52 SCREENING [code = BREAST CANCER SCREENING] Future Scheduled 2022-03-26 INFLU[facility]ZA VACCINE [facility] 05:32:52 [code = INFLUENZA VACCINE] Future Scheduled 2022-03-26 COVID-19 VACCINE (#1) [facility] Test 05:32:52 [code = COVID-19 VACCINE (#1)] Future Scheduled 2022-03-26 Screening for [facility] Test 05:32:52 malignant neoplasm of cervix (procedure) [code = 407668421] Future Scheduled 2022-03-26 COLONOSCOPY SCREENING [facility] Test 05:32:52 [code = COLONOSCOPY SCREENING] Future Scheduled 2022-03-26 SHINGLES VACCINES (1 [facility] Test 05:32:52 of 2) [code = SHINGLES VACCINES (1 of 2)] Future Scheduled 2022-03-26 BREAST CANCER [facility] Test 05:32:52 SCREENING [code = BREAST CANCER SCREENING] Future Scheduled 2022-03-26 INFLUENZA VACCINE [facility] Test 05:32:52 [code = INFLUENZA VACCINE] Future Scheduled 2022-02-05 HEPATITIS B VACCINES Met [facility] Test 07:30:57 (1 of 3 - 3-dose series) [code = HEPATITIS B VACCINES (1 of 3 - 3-dose series)] Future Scheduled 2022-02-05 COVID-19 VACCINE (#1) [facility] Test 07:30:57 [code = COVID-19 VACCINE (#1)] Future Scheduled 2022-02-05 Screening for [facility] Test 07:30:57 malignant neoplasm of cervix (procedure) [code = 087883610] Future Scheduled 2022-02-05 COLONOSCOPY SCREENING [facility] Test 07:30:57 [code = COLONOSCOPY SCREENING] Future Scheduled 2022-02-05 SHINGLES VACCINES (1 Met [facility] Test 07:30:57 of 2) [code = SHINGLES VACCINES (1 of 2)] Future Scheduled 2022-02-05 BREAST CANCER [facility] Test 07:30:57 SCREENING [code = BREAST CANCER SCREENING] Future Scheduled 2022-02-05 INFLUENZA VACCINE [facility] Test 07:30:57 [code = INFLUENZA VACCINE] Future Scheduled 2021-12-11 HEPATITIS B VACCINES Met [facility] Test 12:22:17 (1 of 3 - 3-dose series) [code = HEPATITIS B VACCINES (1 of 3 - 3-dose series)] Future Scheduled 2021-12-11 COVID-19 VACCINE (#1) [facility] Test 12:22:17 [code = COVID-19 VACCINE (#1)] Future Scheduled 2021-12-11 Screening for [facility] Test 12:22:17 malignant neoplasm of cervix (procedure) [code = 993793103] Future Scheduled 2021-12-11 COLONOSCOPY SCREENING [facility] Test 12:22:17 [code = COLONOSCOPY SCREENING] Future Scheduled 2021-12-11 SHINGLES VACCINES (1 Met [facility] Test 12:22:17 of 2) [code = SHINGLES VACCINES (1 of 2)] Future Scheduled 2021-12-11 BREAST CANCER [facility] Test 12:22:17 SCREENING [code = BREAST CANCER SCREENING] Future Scheduled 2021-12-11 INFLUENZA VACCINE Method [facility] Test 12:22:17 [code = INFLUENZA VACCINE] Future Scheduled 2021-12-11 HEPATITIS B VACCINES Met [facility] Test 12:22:17 (1 of 3 - 3-dose series) [code = HEPATITIS B VACCINES (1 of 3 - 3-dose series)] Future Scheduled 2021-12-11 COVID-19 VACCINE (#1) [facility] Test 12:22:17 [code = COVID-19 VACCINE (#1)] Future Scheduled 2021-12-11 Screening for [facility] Test 12:22:17 malignant neoplasm of cervix (procedure) [code = 093767003] Future Scheduled 2021-12-11 COLONOSCOPY SCREENING [facility] Test 12:22:17 [code = COLONOSCOPY SCREENING] Future Scheduled 2021-12-11 SHINGLES VACCINES (1 Met [facility] Test 12:22:17 of 2) [code = SHINGLES VACCINES (1 of 2)] Future Scheduled 2021-12-11 BREAST CANCER [facility] Test 12:22:17 SCREENING [code = BREAST CANCER SCREENING] Future Scheduled 2021-12-11 INFLUENZA VACCINE Method [facility] Test 12:22:17 [code = INFLUENZA VACCINE] Future Scheduled 2021-12-11 HEPATITIS B VACCINES [facility] Test 12:22:17 (1 of 3 - 3-dose series) [code = HEPATITIS B VACCINES (1 of 3 - 3-dose series)] Future Scheduled 2021-12-11 COVID-19 VACCINE (#1) [facility] Test 12:22:17 [code = COVID-19 VACCINE (#1)] Future Scheduled 2021-12-11 Screening for [facility] Test 12:22:17 malignant neoplasm of cervix (procedure) [code = 495232973] Future Scheduled 2021-12-11 COLONOSCOPY SCREENING [facility] Test 12:22:17 [code = COLONOSCOPY SCREENING] Future Scheduled 2021-12-11 SHINGLES VACCINES (1 Met [facility] Test 12:22:17 of 2) [code = SHINGLES VACCINES (1 of 2)] Future Scheduled 2021-12-11 BREAST CANCER [facility] Test 12:22:17 SCREENING [code = BREAST CANCER SCREENING] Future Scheduled 2021-12-11 IN[facility]ZA [facility]ACCINE [facility] 12:22:17 [code = INFLUENZA VACCINE] Future Scheduled 2021-12-11 HEPATITIS B VACCINES Met [facility] Test 12:22:17 (1 of 3 - 3-dose series) [code = HEPATITIS B VACCINES (1 of 3 - 3-dose series)] Future Scheduled 2021-12-11 COVID-19 VACCINE (#1) [facility] Test 12:22:17 [code = COVID-19 VACCINE (#1)] Future Scheduled 2021-12-11 Screening for [facility] Test 12:22:17 malignant neoplasm of cervix (procedure) [code = 808694617] Future Scheduled 2021-12-11 COLONOSCOPY SCREENING [facility] Test 12:22:17 [code = COLONOSCOPY SCREENING] Future Scheduled 2021-12-11 SHINGLES VACCINES (1 Met [facility] Test 12:22:17 of 2) [code = SHINGLES VACCINES (1 of 2)] Future Scheduled 2021-12-11 BREAST CANCER [facility] Test 12:22:17 SCREENING [code = BREAST CANCER SCREENING] Future Scheduled 2021-12-11 [facility] VACCINE [facility] [facility] 12:22:17 [code = [...] Future Scheduled 2021-12-02 HEPATITIS B VACCINES [facility] Test 19:59:35 (1 of 3 - 3-dose series) [code = HEPATITIS B VACCINES (1 of 3 - 3-dose series)] Future Scheduled 2021-12-02 COVID-19 VACCINE (#1) [facility] Test 19:59:35 [code = COVID-19 VACCINE (#1)] Future Scheduled 2021-12-02 Screening for [facility] Test 19:59:35 malignant neoplasm of cervix (procedure) [code = [id number]] Future Scheduled 2021-12-02 COLONOSCOPY SCREENING [facility] Test 19:59:35 [code = COLONOSCOPY SCREENING] Future Scheduled 2021-12-02 SHINGLES VACCINES (1 [facility] Test 19:59:35 of 2) [code = SHINGLES VACCINES (1 of 2)] Future Scheduled 2021-12-02 [facility]35 S[facility]ENING [code = BREAST CANCER SCREENING] Future Scheduled 2021-12-02 INFLUENZA VACCINE [facility] Test 19:59:35 [code = INFLUENZA VACCINE] Future Scheduled 2021-07-08 COVID-19 VACCINE (1) [facility] Test 18:18:56 [code = COVID-19 VACCINE (1)] Future Scheduled 2021-07-08 DIABETES: RETINAL EYE [facility] Test 18:18:56 EXAM [code = DIABETES: RETINAL EYE EXAM] Future Scheduled 2021-07-08 DIABETIC FOOT EXAM [facility] Test 18:18:56 [code = DIABETIC FOOT EXAM] Future Scheduled 2021-07-08 COLONOSCOPY SCREENING [facility] Test 18:18:56 [code = COLONOSCOPY SCREENING] Future Scheduled 2021-07-08 SHINGLES VACCINES (#1) [facility] Test 18:18:56 [code = SHINGLES VACCINES (#1)] Future Scheduled 2021-07-08 [facility]:18:56 SCREENING [code = BREAST CANCER SCREENING] Future Scheduled 2021-07-08 [facility]ening for [facility] Test 18:18:56 malignant neoplasm of cervix (procedure) [code = [id number]] Future Scheduled 2021-07-08 INFLUENZA VACCINE [facility] 18:18:56 [code = INFLUENZA VACCINE] Future Scheduled 2021-06-26 Screening for [facility] Test 14:10:19 malignant neoplasm of cervix (procedure) [code = 143484366] Future Scheduled 2021-06-26 INFLUENZA VACCINE [facility] 14:10:19 [code = INFLUENZA VACCINE] Future Scheduled 2021-06-26 COVID-19 VACCINE (1) [facility] Test 14:10:19 [code = COVID-19 VACCINE (1)] Future Scheduled 2021-06-26 DIABETES: RETINAL EYE [facility] Test 14:10:19 EXAM [code = DIABETES: RETINAL EYE EXAM] Future Scheduled 2021-06-26 DIABETIC FOOT EXAM [facility] Test 14:10:19 [code = DIABETIC FOOT EXAM] Future Scheduled 2021-06-26 COLONOSCOPY SCREENING [facility] Test 14:10:19 [code = COLONOSCOPY SCREENING] Future Scheduled 2021-06-26 SHINGLES VACCINES (#1) [facility] Test 14:10:19 [code = SHINGLES VACCINES (#1)] Future Scheduled 2021-06-26 BREAST CANCER [facility] Test 14:10:19 SCREENING [code = BREAST CANCER SCREENING] Future Scheduled 2021-06-26 Screening for [facility] Test 14:10:19 malignant neoplasm of cervix (procedure) [code = 798390585] Future Scheduled 2021-06-26 INFLUENZA VACCINE [facility] Test 14:10:19 [code = INFLUENZA VACCINE] Future Scheduled 2021-06-26 COVID-19 VACCINE (1) [facility] Test 14:10:19 [code = COVID-19 VACCINE (1)] Future Scheduled 2021-06-26 DIABETES: RETINAL EYE [facility] Test 14:10:19 EXAM [code = DIABETES: RETINAL EYE EXAM] Future Scheduled 2021-06-26 DIABETIC FOOT EXAM [facility] Test 14:10:19 [code = DIABETIC FOOT EXAM] Future Scheduled 2021-06-26 COLONOSCOPY SCREENING [facility] Test 14:10:19 [code = COLONOSCOPY SCREENING] Future Scheduled 2021-06-26 SHINGLES VACCINES (#1) [facility] Test 14:10:19 [code = SHINGLES VACCINES (#1)] Future Scheduled 2021-06-26 BREAST CANCER [facility] Test 14:10:19 SCREENING [code = BREAST CANCER SCREENING] Future Scheduled 2021-06-26 Screening for [facility] Test 14:10:19 malignant neoplasm of cervix (procedure) [code = [id number]] Future Scheduled 2021-06-26 INFLUENZA VACCINE [facility] 14:10:19 [code = INFLUENZA VACCINE] Future Scheduled 2021-06-26 COVID-19 VACCINE (1) [facility] Test 14:10:19 [code = COVID-19 VACCINE (1)] Future Scheduled 2021-06-26 DIABETES: RETINAL EYE [facility] Test 14:10:19 EXAM [code = DIABETES: RETINAL EYE EXAM] Future Scheduled 2021-06-26 DIABETIC FOOT EXAM [facility] Test 14:10:19 [code = DIABETIC FOOT EXAM] Future Scheduled 2021-06-26 COLONOSCOPY SCREENING [facility] Test 14:10:19 [code = COLONOSCOPY SCREENING] Future Scheduled 2021-06-26 SHINGLES VACCINES (#1) [facility] Test 14:10:19 [code = SHINGLES VACCINES (#1)] Future Scheduled 2021-06-26 BREAST CANCER [facility] Test 14:10:19 SCREENING [code = BREAST CANCER SCREENING] Future Scheduled 2021-06-26 Screening for [facility] Test 14:10:19 malignant neoplasm of cervix (procedure) [code = 461133398] Future Scheduled 2021-06-26 INFLUENZA VACCINE [facility] 14:10:19 [code = INFLUENZA VACCINE] Future Scheduled 2021-06-26 COVID-19 VACCINE (1) [facility] Test 14:10:19 [code = COVID-19 VACCINE (1)] Future Scheduled 2021-06-26 DIABETES: RETINAL EYE [facility] Test 14:10:19 EXAM [code = DIABETES: RETINAL EYE EXAM] Future Scheduled 2021-06-26 DIABETIC FOOT EXAM [facility] Test 14:10:19 [code = DIABETIC FOOT EXAM] Future Scheduled 2021-06-26 COLONOSCOPY SCREENING [facility] Test 14:10:19 [code = COLONOSCOPY SCREENING] Future Scheduled 2021-06-26 SHINGLES VACCINES (#1) [facility] Test 14:10:19 [code = SHINGLES VACCINES (#1)] Future Scheduled 2021-06-26 BREAST CANCER [facility] Test 14:10:19 SCREENING [code = BREAST CANCER SCREENING] Future Scheduled 2021-06-26 Screening for [facility] Test 14:10:19 malignant neoplasm of cervix (procedure) [code = 137482867] Future Scheduled 2021-06-26 INFLUENZA VACCINE [facility] 14:10:19 [code = INFLUENZA VACCINE] Future Scheduled 2021-06-26 COVID-19 VACCINE (1) [facility] Test 14:10:19 [code = COVID-19 VACCINE (1)] Future Scheduled 2021-06-26 DIABETES: RETINAL EYE [facility] Test 14:10:19 EXAM [code = DIABETES: RETINAL EYE EXAM] Future Scheduled 2021-06-26 DIABETIC FOOT EXAM [facility] Test 14:10:19 [code = DIABETIC FOOT EXAM] Future Scheduled 2021-06-26 COLONOSCOPY SCREENING [facility] Test 14:10:19 [code = COLONOSCOPY SCREENING] Future Scheduled 2021-06-26 SHINGLES VACCINES (#1) [facility] Test 14:10:19 [code = SHINGLES VACCINES (#1)] Future Scheduled 2021-06-26 BREAST CANCER [facility] Test 14:10:19 SCREENING [code = BREAST CANCER SCREENING] Future Scheduled 2021-06-26 Screening for [facility] Test 14:10:19 malignant neoplasm of cervix (procedure) [code = 654694539] Future Scheduled 2021-06-26 INFLUENZA VACCINE [facility] 14:10:19 [code = INFLUENZA VACCINE] Future Scheduled 2021-06-26 COVID-19 VACCINE (1) [facility] Test 14:10:19 [code = COVID-19 VACCINE (1)] Future Scheduled 2021-06-26 DIABETES: RETINAL EYE [facility] Test 14:10:19 EXAM [code = DIABETES: RETINAL EYE EXAM] Future Scheduled 2021-06-26 DIABETIC FOOT EXAM [facility] Test 14:10:19 [code = DIABETIC FOOT EXAM] Future Scheduled 2021-06-26 COLONOSCOPY SCREENING [facility] Test 14:10:19 [code = COLONOSCOPY SCREENING] Future Scheduled 2021-06-26 SHINGLES VACCINES (#1) [facility] Test 14:10:19 [code = SHINGLES VACCINES (#1)] Future Scheduled 2021-06-26 BREAST CANCER [facility] Test 14:10:19 SCREENING [code = BREAST CANCER SCREENING] Future Scheduled 2021-06-26 Screening for [facility] Test 14:10:19 malignant neoplasm of cervix (procedure) [code = 882716070] Future Scheduled 2021-06-26 INFLUENZA VACCINE [facility] 14:10:19 [code = INFLUENZA VACCINE] Future Scheduled 2021-06-26 COVID-19 VACCINE (1) [facility] Test 14:10:19 [code = COVID-19 VACCINE (1)] Future Scheduled 2021-06-26 DIABETES: RETINAL EYE [facility] Test 14:10:19 EXAM [code = DIABETES: RETINAL EYE EXAM] Future Scheduled 2021-06-26 DIABETIC FOOT EXAM [facility] Test 14:10:19 [code = DIABETIC FOOT EXAM] Future Scheduled 2021-06-26 COLONOSCOPY SCREENING [facility] Test 14:10:19 [code = COLONOSCOPY SCREENING] Future Scheduled 2021-06-26 SHINGLES VACCINES (#1) [facility] Test 14:10:19 [code = SHINGLES VACCINES (#1)] Future Scheduled 2021-06-26 BREAST CANCER [facility] Test 14:10:19 SCREENING [code = BREAST CANCER SCREENING] Future Scheduled 2021-06-26 Screening for [facility] Test 14:10:19 malignant neoplasm of cervix (procedure) [code = 124328292] Future Scheduled 2021-06-26 INFLUENZA VACCINE [facility] 14:10:19 [code = INFLUENZA VACCINE] Future Scheduled 2021-06-26 COVID-19 VACCINE (1) [facility] Test 14:10:19 [code = COVID-19 VACCINE (1)] Future Scheduled 2021-06-26 DIABETES: RETINAL EYE [facility] Test 14:10:19 EXAM [code = DIABETES: RETINAL EYE EXAM] Future Scheduled 2021-06-26 DIABETIC FOOT EXAM [facility] Test 14:10:19 [code = DIABETIC FOOT EXAM] Future Scheduled 2021-06-26 COLONOSCOPY SCREENING [facility] Test 14:10:19 [code = COLONOSCOPY SCREENING] Future Scheduled 2021-06-26 SHINGLES VACCINES (#1) [facility] Test 14:10:19 [code = SHINGLES VACCINES (#1)] Future Scheduled 2021-06-26 BREAST CANCER [facility] Test 14:10:19 SCREENING [code = BREAST CANCER SCREENING] Future Scheduled 2021-06-26 Screening for [facility] Test 14:10:19 malignant neoplasm of cervix (procedure) [code = 426544163] Future Scheduled 2021-06-26 INFLUENZA VACCINE [facility] 14:10:19 [code = INFLUENZA VACCINE] Future Scheduled 2021-06-26 COVID-19 VACCINE (1) [facility] Test 14:10:19 [code = COVID-19 VACCINE (1)] Future Scheduled 2021-06-26 DIABETES: RETINAL EYE [facility] Test 14:10:19 EXAM [code = DIABETES: RETINAL EYE EXAM] Future Scheduled 2021-06-26 DIABETIC FOOT EXAM [facility] Test 14:10:19 [code = DIABETIC FOOT EXAM] Future Scheduled 2021-06-26 COLONOSCOPY SCREENING [facility] Test 14:10:19 [code = COLONOSCOPY SCREENING] Future Scheduled 2021-06-26 SHINGLES VACCINES (#1) M [facility] Test 14:10:19 [code = SHINGLES VACCINES (#1)] Future Scheduled 2021-06-26 BREAST CANCER [facility] Test 14:10:19 SCREENING [code = BREAST CANCER SCREENING] Future Scheduled 2021-06-[address] [facility] Test 00:00:00 (procedure) [code = [facility] [id number]] Future Scheduled 2021-06-[address] [facility] Test 00:00:00 (procedure) [code = [facility] [id number]] Future Scheduled 2021-06-[address] [facility] Test 00:00:00 (procedure) [code = Medical Center [id number]] Future Scheduled 2021-06-[address] [facility] Test 00:00:00 (procedure) [code = [facility] 84291924] Future Scheduled 2021-06-[address] [facility] Test 00:00:00 (procedure) [code = Medical Center 14851352] Future Scheduled 2021-06-[address] [facility] Test 00:00:00 (procedure) [code = Medical Center 45325465] Future Scheduled 2021-06-[address] [facility] Test 00:00:00 (procedure) [code = Medical Center 17983433] Future Scheduled 2021-06-[address] [facility] Test 00:00:00 (procedure) [code = Medical Center 95802276] Future Scheduled 2021-06-[address] [facility] Test 00:00:00 (procedure) [code = Medical Center 28291453] Future Scheduled 2021-06-[address] [facility] Test 00:00:00 (procedure) [code = Medical Center 43128574] Future Scheduled 2021-06-[address] [facility] Test 00:00:00 (procedure) [code = Medical Center 14346000] Future Scheduled 2021-06-[address] [facility] Test 00:00:00 (procedure) [code = Medical Center 46806957] Future Scheduled 2021-06-[address] [facility] Test 00:00:00 (procedure) [code = Medical Center 38138612] Future Scheduled 2021-06-[address] [facility] Test 00:00:00 (procedure) [code = Medical Center 38940263] Future Scheduled 2021-06-[address] [facility] Test 00:00:00 (procedure) [code = Medical Center 59024453] Future Scheduled 2021-06-[address] [facility] Test 00:00:00 (procedure) [code = Medical Center 93019091] Future Scheduled 2021-06-[address] [facility] Test 00:00:00 (procedure) [code = Medical Center 53125105] Future Scheduled 2021-06-[address] [facility] Test 00:00:00 (procedure) [code = [facility] Center 34589298] Future Scheduled 2021-06-[address] [facility] Test 00:00:00 (procedure) [code = [facility] Center 13725931] Future Scheduled 2021-06-[address] [facility] Test 00:00:00 (procedure) [code = Medical Center 86783543] Future Scheduled 2021-06-[address] [facility] Test 00:00:00 (procedure) [code = Medical Center 36630889] Future Scheduled 2021-06-[address] [facility] Test 00:00:00 (procedure) [code = Medical Center 44695213] Future Scheduled 2021-06-[address] [facility] Test 00:00:00 (procedure) [code = Medical Center 84252568] Future Scheduled 2021-06-10 COVID-19 VACCINE (1) [facility] Test 17:58:22 [code = COVID-19 VACCINE (1)] Future Scheduled 2021-06-10 DIABETES: RETINAL EYE [facility] Test 17:58:22 EXAM [code = DIABETES: RETINAL EYE EXAM] Future Scheduled 2021-06-10 DIABETIC FOOT EXAM [facility] Test 17:58:22 [code = DIABETIC FOOT EXAM] Future Scheduled 2021-06-10 COLONOSCOPY SCREENING [facility] Test 17:58:22 [code = COLONOSCOPY SCREENING] Future Scheduled 2021-06-10 SHINGLES VACCINES (#1) [facility] Test 17:58:22 [code = SHINGLES VACCINES (#1)] Future Scheduled 2021-06-10 BREAST CANCER [facility] Test 17:58:22 SCREENING [code = BREAST CANCER SCREENING] Future Scheduled 2021-06-10 Screening for [facility] Test 17:58:22 malignant neoplasm of cervix (procedure) [code = 556188705] Future Scheduled 2021-06-10 INFLUENZA VACCINE [facility] Test 17:58:22 [code = INFLUENZA VACCINE] Future Scheduled 2021-05-12 COVID-19 VACCINE (1) [facility] Test 00:12:28 [code = COVID-19 VACCINE (1)] Future Scheduled 2021-05-12 DIABETES: RETINAL EYE [facility] Test 00:12:28 EXAM [code = DIABETES: RETINAL EYE EXAM] Future Scheduled 2021-05-12 DIABETIC FOOT EXAM [facility] Test 00:12:28 [code = DIABETIC FOOT EXAM] Future Scheduled 2021-05-12 COLONOSCOPY SCREENING [facility] Test 00:12:28 [code = COLONOSCOPY SCREENING] Future Scheduled 2021-05-12 SHINGLES VACCINES (#1) [facility] Test 00:12:28 [code = SHINGLES VACCINES (#1)] Future Scheduled 2021-05-12 BREAST CANCER [facility] Test 00:12:28 SCREENING [code = BREAST CANCER SCREENING] Future Scheduled 2021-05-12 [facility] for [facility] Test 00:12:28 malignant neoplasm of cervix (procedure) [code = 632747575] Future Scheduled 2021-05-12 INFLUENZA VACCINE [facility] Test 00:12:28 [code = [...] Future Scheduled 2021-02-11 COVID-19 VACCINE (1) [facility] Test 13:55:42 [code = COVID-19 VACCINE (1)] Future Scheduled 2021-02-11 DIABETES: RETINAL EYE [facility] Test 13:55:42 EXAM [code = DIABETES: RETINAL EYE EXAM] Future Scheduled 2021-02-11 DIABETIC FOOT EXAM [facility] Test 13:55:42 [code = DIABETIC FOOT EXAM] Future Scheduled 2021-02-11 COLONOSCOPY SCREENING [facility] Test 13:55:42 [code = COLONOSCOPY SCREENING] Future Scheduled 2021-02-11 SHINGLES VACCINES (#1) [facility] Test 13:55:42 [code = SHINGLES VACCINES (#1)] Future Scheduled 2021-02-11 BREAST CANCER [facility] Test 13:55:42 SCREENING [code = BREAST CANCER SCREENING] Future Scheduled 2021-02-11 Screening for [facility] Test 13:55:42 malignant neoplasm of cervix (procedure) [code = 007585969] Future Scheduled 2021-02-11 INFLUENZA VACCINE Method [facility] [...] 00:00:00 [facility] (procedure) [code = 77882915] Future Scheduled 2020-08-[address] [facility] (procedure) [code = 71264229] Future Scheduled 2020-08-[address] [facility] (procedure) [code = 20604328] Future Scheduled 2020-08-[address] [facility] (procedure) [code = 18415827] Future Scheduled 2020-08-[address] [facility] (procedure) [code = 71743337] Future Scheduled 2020-08-[address] [facility] (procedure) [code = 39270623] Future Scheduled 2020-08-[address] [facility] 00:[facility] (procedure) [code = 24483689] Future Scheduled 2020-08-[address] [facility] 00:[facility] (procedure) [code = 14988266] Future Scheduled 2020-08-[address] [facility] 00:[facility] (procedure) [code = 95892008] Future Scheduled 2020-08-[address] [facility] 00:[facility] (procedure) [code = 26842180] Future Scheduled 2020-08-[address] [facility] 00:[facility] (procedure) [code = 09959861] Future Scheduled 2020-08-[address] [facility] 00:[facility] (procedure) [code = 45351539] Future Scheduled 2020-08-[address] [facility] 00:[facility] (procedure) [code = 13827607] Future Scheduled 2020-08-[address] [facility] 00:[facility] (procedure) [code = 91038667] Future Scheduled 2020-08-[address] [facility] 00:[facility] (procedure) [code = 00532400] Future Scheduled 2020-08-[address] [facility] 00:[facility] (procedure) [code = 30149654] Future Scheduled 2020-08-[address] [facility] 00:[facility] (procedure) [code = 57195388] Future Scheduled 2020-08-[address] [facility] 00:[facility] (procedure) [code = 95969593] Future Scheduled 2020-08-[address] [facility] 00:[facility] (procedure) [code = 84933238] Future Scheduled 2020-08-[address] [facility] 00:[facility] (procedure) [code = 38704978] Future Scheduled 2020-08-[address] [facility] 00:[facility] (procedure) [code = 16191507] Future Scheduled 2020-08-[address] [facility] 00:00:00 [facility] (procedure) [code = 27992935] Future Scheduled 2020-08-[address] [facility] (procedure) [code = 90118429] Future Scheduled 2019-11-[address] [facility] breast (procedure) [code = 441008053] Future Scheduled 2019-11-[address] [facility] Test 00:00:00 [facility] breast (procedure) [code = 287342000] Future Scheduled 2019-11-[address] [facility] 00:00:00 [facility] breast (procedure) [code = 065791744] Future Scheduled 2019-11-[address] [facility] Test 00:00:00 [facility] breast (procedure) [code = 576304299] Future Scheduled 2019-11-[address] [facility] Test 00:00:00 [facility] breast (procedure) [code = 099681146] Future Scheduled 2019-11-[address] [facility] Test 00:00:00 [facility] breast (procedure) [code = 207493239] Future Scheduled 2019-11-[address] [facility] Test 00:00:00 [facility] breast (procedure) [code = 033095155] Future Scheduled 2019-11-[address] [facility] 00:00:00 [facility] breast (procedure) [code = 912875063] Future Scheduled 2019-11-[address] [facility] Test 00:00:00 [facility] breast (procedure) [code = 350930276] Future Scheduled 2019-11-[address] [facility] Test 00:00:00 [facility] breast (procedure) [code = 559888416] Future Scheduled 2019-11-[address] [facility] Test 00:00:00 [facility] breast (procedure) [code = 049224307] Future Scheduled 2019-11-[address] [facility] Test 00:00:00 [facility] breast (procedure) [code = 589267192] Future Scheduled 2019-11-[address] [facility] Test 00:00:00 [facility] breast (procedure) [code = 042453609] Future Scheduled 2019-11-[address] [facility] Test 00:00:00 [facility] breast (procedure) [code = 889865703] Future Scheduled 2019-11-[address] [facility] Test 00:00:00 [facility] breast (procedure) [code = 054614217] Future Scheduled 2019-11-[address] [facility] Test 00:00:00 [facility] breast (procedure) [code = 296002509] Future Scheduled 2019-11-[address] [facility] Test 00:00:00 [facility] breast (procedure) [code = 414420764] Future Scheduled 2019-11-[address] [facility] Test 00:00:00 [facility] breast (procedure) [code = 581004756] Future Scheduled 2019-11-[address] [facility] Test 00:00:00 [facility] breast (procedure) [code = 818567251] Future Scheduled 2019-11-[address] [facility] Test 00:00:00 [facility] breast (procedure) [code = 835613283] Future Scheduled 2019-11-[address] [facility] Test 00:00:00 [facility] breast (procedure) [code = 646622800] Future Scheduled 2019-11-[address] [facility] Test 00:00:00 [facility] breast (procedure) [code = 789751727] Future Scheduled 2019-11-[address] [facility] Test 00:00:00 [facility] of [facility] breast (procedure) [code = 047423008] Future Scheduled 2018-06-[address] [...] 00:00:00 examination Medical Center (regime/therapy) [code = 992298615] Future Scheduled 1965-09[birth year]05 Urine screening for [facility] 00:00:00 protein (procedure) [facility] [code = 758763810] Future Scheduled 1967-09-[address] [facility] 00:00:00 [code = DIABETIC EYE Medical Center EXAM] Future Scheduled 1967-09-[address] [facility] examination Medical Center (regime/therapy) [code = 849754794] Future Scheduled 1967-09-05 Urine screening for [facility] 00:00:00 protein (procedure) [facility] Center [code = 222408064] Future Scheduled 1967-09-[address] [facility] 00:00:00 [code = DIABETIC EYE Medical Center EXAM] Future Scheduled 1967-09-[address] [facility]00 examination Medical Center (regime/therapy) [code = 875775538] Future Scheduled 1967-09-05 Urine screening for [facility] 00:00:00 protein (procedure) [facility] Center [code = 810687185] Future Scheduled 1967-09-[address] [facility] 00:00:00 [code = DIABETIC EYE Medical Center EXAM] Future Scheduled 1967-09-[address] [facility] 00:[facility]:00 examination Medical Center (regime/therapy) [code = 971988670] Future Scheduled 1967-09-05 Urine screening for [facility] 00:00:00 protein (procedure) [facility] Center [code = 845890168] Future Scheduled 1967-09-[address] [facility] 00:00:00 [code = DIABETIC EYE Medical Center EXAM] Future Scheduled 1967-09-[address] [facility] 00:[facility]:00 examination Medical Center (regime/therapy) [code = 431869220] Future Scheduled 1967-09-05 Urine screening for [facility] 00:00:00 protein (procedure) [facility] Center [code = 885736650] Future Scheduled 1967-09-[address] EX[address] [facility] 00:00:00 [code = DIABETIC EYE Medical Center EXAM] Future Scheduled 1967-09-[address] [facility] 00:[facility]:00 examination Medical Center (regime/therapy) [code = 621186449] Future Scheduled 1967-09-05 Urine screening for [facility] 00:00:00 protein (procedure) [facility] Center [code = 184074201] Future Scheduled 1967-09-[address] EX[address] [facility] 00:00:00 [code = DIABETIC EYE Medical Center EXAM] Future Scheduled 1967-09-[address] [facility] 00:[facility]:00 examination Medical Center (regime/therapy) [code = 441394720] Future Scheduled 1967-09-05 Urine screening for [facility] 00:00:00 protein (procedure) [facility] Center [code = 683821332] Future Scheduled 1967-09-[address] EX[address] [facility] 00:00:00 [code = DIABETIC EYE Medical Center EXAM] Future Scheduled 1967-09-[address] [facility] 00:[facility]:00 examination Medical Center (regime/therapy) [code = 808820968] Future Scheduled 1967-09-05 Urine screening for [facility] 00:00:00 protein (procedure) [facility] Center [code = 995245129] Future Scheduled 1967-09-[address] EXAM [facility] 00:00:00 [code = DIABETIC EYE Medical Center EXAM] Future Scheduled 1967-09-[address] [facility] 00:00:00 examination Medical Center (regime/therapy) [code = 947500518] Future Scheduled 1967-09-05 Urine screening for [facility] 00:00:00 protein (procedure) Medical Center [code = 278711097] Future Scheduled 1967-09-[address] DI[address] EXAM [facility] 00:00:00 [code = DIABETIC EYE Medical Center EXAM] Future Scheduled 1967-09-[address] [facility] 00:00:00 examination Medical Center (regime/therapy) [code = 323958501] Future Scheduled 1967-09-05 Urine screening for [facility] 00:00:00 protein (procedure) [facility] Center [code = 438913157] Future Scheduled 1967-09-[address] EX[address] [facility] 00:00:00 [code = DIABETIC EYE Medical Center EXAM] Future Scheduled 1967-09-05 Urine screening for [facility] 00:00:00 protein (procedure) Medical Center [code = 759861612] Future Scheduled 1967-09-[address] EXAM [facility] 00:00:00 [code = DIABETIC EYE Medical Center EXAM] Future Scheduled 1967-09-05 Urine screening for [facility] 00:00:00 protein (procedure) Medical Center [code = 607347301] Future Scheduled 1967-09-[address] EXAM [facility] 00:00:00 [code = DIABETIC EYE Medical Center EXAM] Future Scheduled 1967-09-05 Urine screening for [facility] 00:00:00 protein (procedure) Medical Center [code = 203834332] Future Scheduled 1967-09-[address] DI[address] EXAM [facility] 00:00:00 [code = DIABETIC EYE Medical Center EXAM] Future Scheduled 1967-09-05 Urine screening for [facility] 00:00:00 protein (procedure) Medical Center [code = 294916400] Future Scheduled 1967-09-[address] DI[address] EXAM [facility] 00:00:00 [code = DIABETIC EYE Medical Center EXAM] Future Scheduled 1967-09-05 Urine screening for [facility] 00:00:00 protein (procedure) Medical Center [code = 285624378] Future Scheduled 1967-09-[address] EXAM [facility] 00:00:00 [code = DIABETIC EYE Medical Center EXAM] Future Scheduled 1967-09-05 Urine screening for [facility] 00:00:00 protein (procedure) Medical Center [code = 576397752] Future Scheduled 1967-09-[address] DI[address] EXAM [facility] 00:00:00 [code = DIABETIC EYE Medical Center EXAM] Future Scheduled 1967-09-05 Urine screening for [facility] 00:00:00 protein (procedure) Medical Center [code = 775628428] Future Scheduled 1967-09-[address] DI[address] EXAM [facility] 00:00:00 [code = DIABETIC EYE Medical Center EXAM] Future Scheduled 1967-09-05 Urine screening for [facility] 00:00:00 protein (procedure) Medical Center [code = 332286936] Future Scheduled 1967-09-[address] EXAM [facility] 00:00:00 [code = DIABETIC EYE Medical Center EXAM] Future Scheduled 1967-09-05 Urine screening for [facility] 00:00:00 protein (procedure) Medical Center [code = 305137062] Future Scheduled 1967-09-[address] DI[address] EXAM [facility] 00:00:00 [code = DIABETIC EYE Medical Center EXAM] Future Scheduled 1967-09-05 Urine screening for [facility] 00:00:00 protein (procedure) [facility] Center [code = 240559491] Future Scheduled 1967-09-[address] EXAM [facility] 00:00:00 [code = DIABETIC EYE Medical Center EXAM] Future Scheduled 1967-09-[address] [facility] 00:00:00 examination Medical Center (regime/therapy) [code = 830407310] Future Scheduled 1967-09-05 Urine screening for [facility] 00:00:00 protein (procedure) Medical Center [code = 485676071] Future Scheduled 1967-09-[address] EXAM [facility] 00:00:00 [code = DIABETIC EYE Medical Center EXAM] Future Scheduled 1967-09-[address] [facility] 00:00:00 examination Medical Center (regime/therapy) [code = 661052371] Future Scheduled 1967-09-05 Urine screening for [facility] 00:00:00 protein (procedure) Medical Center [code = 619669122] Future Scheduled 1967-09-[address] EXAM [facility] 00:00:00 [code = DIABETIC EYE Medical Center EXAM] Future Scheduled 1967-09-05 Urine screening for [facility] 00:00:00 protein (procedure) Medical Center [code = 975315521] Future Scheduled [address] [facility] 00:00:00 malignant neoplasm of [facility] colon (procedure) [code = 491491362] Future Scheduled [address] [facility] 00:00:00 malignant neoplasm of [facility] colon (procedure) [code = 281700590] Future Scheduled [address] [facility] 00:00:00 malignant neoplasm of [facility] colon (procedure) [code = 316623302] Future Scheduled [address] [facility] 00:00:00 (combo) [code = CT Medical C enter Colonography (combo)] Future Scheduled [address] [facility] 00:00:00 malignant neoplasm of [facility] colon (procedure) [code = 973689860] Future Scheduled [address] [facility] 00:00:00 malignant neoplasm of [facility] colon (procedure) [code = 443404884] Future Scheduled [address] [facility] 00:00:00 malignant neoplasm of [facility] colon (procedure) [code = 533130341] Future Scheduled [address] [facility] 00:00:00 malignant neoplasm of [facility] colon (procedure) [code = 215623533] Future Scheduled 1957 Sigmoidoscopy [facility]] [facility] Cent[facility] r Future Scheduled [address] [facility] 00:00:00 (combo) [code = CT Medical C enter Colonography (combo)] Future Scheduled [address] [facility] 00:00:00 malignant neoplasm of [facility] colon (procedure) [code = 266590944] Future Scheduled [address] [facility] 00:00:00 malignant neoplasm of [facility] colon (procedure) [code = 369020958] Future Scheduled [address] [facility] 00:00:00 malignant neoplasm of [facility] colon (procedure) [code = 578944194] Future Scheduled [address] [facility] 00:00:00 malignant neoplasm of [facility] colon (procedure) [code = 332494764] Future Scheduled 1957 Sigmoidoscopy [facility]] [facility] Cent[facility] Future Scheduled [address] [facility] 00:00:00 (combo) [code = CT Medical C enter Colonography (combo)] Future Scheduled [address] [facility] 00:00:00 malignant neoplasm of [facility] colon (procedure) [code = 669197302] Future Scheduled [address] [facility] 00:00:00 malignant neoplasm of [facility] colon (procedure) [code = 901210257] Future Scheduled [address] [facility] 00:00:00 malignant neoplasm of [facility] colon (procedure) [code = 489207798] Future Scheduled [address] [facility] 00:00:00 malignant neoplasm of [facility] colon (procedure) [code = 328588378] Future Scheduled 1957 Sigmoidoscopy [facility]] [facility] Cent[facility] Future Scheduled [address] [facility] 00:00:00 (combo) [code = CT Medical C enter Colonography (combo)] Future Scheduled [address] [facility] 00:00:00 malignant neoplasm of [facility] colon (procedure) [code = 991160081] Future Scheduled [address] [facility] 00:00:00 malignant neoplasm of [facility] colon (procedure) [code = 938964871] Future Scheduled [address] [facility] 00:00:00 malignant neoplasm of [facility] colon (procedure) [code = 547128800] Future Scheduled [address] [facility] 00:00:00 malignant neoplasm of [facility] colon (procedure) [code = 350129377] Future Scheduled 1957 Sigmoidoscopy [facility]] [facility] Future Scheduled [address] [facility] 00:00:00 (combo) [code = CT Medical C enter Colonography (combo)] Future Scheduled [address] [facility] 00:00:00 malignant neoplasm of [facility] colon (procedure) [code = 064791953] Future Scheduled [address] [facility] 00:00:00 malignant neoplasm of [facility] colon (procedure) [code = 620948619] Future Scheduled 1957 Sigmoidoscopy [[facility]] [facility] [place] [facility] Future Scheduled [address] [facility] 00:00:00 (combo) [code = CT Medical C enter Colonography (combo)] Future Scheduled [address] [facility] 00:00:00 malignant neoplasm of [facility] colon (procedure) [code = 164676890] Future Scheduled [address] [facility] 00:00:00 malignant neoplasm of [facility] colon (procedure) [code = 908406468] Future Scheduled 1957 Sigmoidoscopy [facility]] [facility] [place] [facility] Future Scheduled [address] [facility] 00:00:00 (combo) [code = CT Medical C enter Colonography (combo)] Future Scheduled [address] [facility] 00:00:00 malignant neoplasm of [facility] colon (procedure) [code = 941695503] Future Scheduled [address] [facility] 00:00:00 malignant neoplasm of [facility] colon (procedure) [code = 978094264] Future Scheduled 1957 Sigmoidoscopy [facility]] [facility] [place] [facility] Future Scheduled [address] [facility] 00:00:00 (combo) [code = CT Medical C enter Colonography (combo)] Future Scheduled [address] [facility] 00:00:00 malignant neoplasm of [facility] colon (procedure) [code = 971240587] Future Scheduled [address] [facility] 00:00:00 malignant neoplasm of [facility] colon (procedure) [code = 346247346] Future Scheduled 1957 Sigmoidoscopy [facility]code [facility]] [facility] [place] [facility] Future Scheduled [address] [facility] 00:00:00 (combo) [code = CT Medical C enter Colonography (combo)] Future Scheduled [address] [facility] 00:00:00 malignant neoplasm of [facility] colon (procedure) [code = 891269519] Future Scheduled [address] [facility] 00:00:00 malignant neoplasm of [facility] colon (procedure) [code = 012761232] Future Scheduled 1957 Sigmoidoscopy [facility]code [facility]] [facility] Future Scheduled [address] [facility] 00:00:00 (combo) [code = CT Medical C enter Colonography (combo)] Future Scheduled [address] [facility] 00:00:00 malignant neoplasm of [facility] colon (procedure) [code = 007076115] Future Scheduled [address] [facility] 00:00:00 malignant neoplasm of [facility] colon (procedure) [code = 830061197] Future Scheduled 1957 Sigmoidoscopy [code [facility]] [facility] Future Scheduled [address] [facility] 00:00:00 (combo) [code = CT Medical C enter Colonography (combo)] Future Scheduled [address] [facility] 00:00:00 malignant neoplasm of [facility] colon (procedure) [code = 650813186] Future Scheduled [address] [facility] 00:00:00 malignant neoplasm of [facility] colon (procedure) [code = 057504704] Future Scheduled 1957 Sigmoidoscopy [code [facility]] [facility] Cent[facility] Future Scheduled [address] [facility] 00:00:00 (combo) [code = CT Medical C enter Colonography (combo)] Future Scheduled [address] [facility] 00:00:00 malignant neoplasm of [facility] colon (procedure) [code = 104922487] Future Scheduled [address] [facility] 00:00:00 malignant neoplasm of [facility] colon (procedure) [code = 425999906] Future Scheduled 1957 Sigmoidoscopy [code [facility]] [facility] Cent[facility] Future Scheduled [address] [facility] 00:00:00 (combo) [code = CT Medical C enter Colonography (combo)] Future Scheduled [address] [facility] 00:00:00 malignant neoplasm of [facility] Center colon (procedure) [code = 038357975] Future Scheduled [address] [facility] 00:00:00 malignant neoplasm of [facility] Center colon (procedure) [code = 091854291] Future Scheduled 1957 S[facility]oidoscopy [facility] [address] [facility] 00:00:00 (combo) [code = CT Medical C enter Colonography (combo)] Future Scheduled [address] [facility] 00:00:00 malignant neoplasm of [facility] Center colon (procedure) [code = 714589320] Future Scheduled [address] [facility] 00:00:00 malignant neoplasm of [facility] Center colon (procedure) [code = 538315728] Future Scheduled 1957 Sigmoidoscopy [facility] [address] [facility] 00:00:00 (combo) [code = CT Medical C enter Colonography (combo)] Future Scheduled [address] [facility] 00:00:00 malignant neoplasm of [facility] Center colon (procedure) [code = 085439994] Future Scheduled [address] [facility] 00:00:00 malignant neoplasm of [facility] Center colon (procedure) [code = 852918187] Future Scheduled 1957 S[facility]oidoscopy [facility]] [facility] Future Scheduled [address] [facility] 00:00:00 (combo) [code = CT Medical C enter Colonography (combo)] Future Scheduled [address] [facility] 00:00:00 malignant neoplasm of [facility] Center colon (procedure) [code = 836363176] Future Scheduled [address] [facility] 00:00:00 malignant neoplasm of [facility] Center colon (procedure) [code = 144412789] Future Scheduled 1957 Sigmoidoscopy [facility]code [facility]] [facility] Future Scheduled [address] [facility] 00:00:00 (combo) [code = CT Medical C enter Colonography (combo)] Future Scheduled 1957 DXA SCAN [code = DXA [facility] 00:00:00 SCAN] [facility] Future Scheduled [address] [facility] 00:00:00 malignant neoplasm of [facility] Center colon (procedure) [code = 626458280] Future Scheduled [address] [facility] 00:00:00 malignant neoplasm of [facility] Center colon (procedure) [code = 844193088] Future Scheduled 1957 Sigmoidoscopy [facility]code [facility]] [facility] Future Scheduled [address] [facility] 00:00:00 malignant neoplasm of [facility] Center colon (procedure) [code = 857217202] Future Scheduled [address] [facility] 00:00:00 malignant neoplasm of [facility] Center colon (procedure) [code = 068353362] Future Scheduled [address] [facility] 00:00:00 (combo) [code = CT Medical C enter Colonography (combo)] Future Scheduled 1957 DXA SCAN [code = DXA [facility] 00[facility]00:00 SCAN] Medical Center Future Scheduled [address] [facility] [code = 831229544] Future Scheduled [address] [facility]00[facility]00 [facility] [code = 254950246] Future Scheduled 1957 Sigmoidoscopy [facility]code [facility] S[facility]oscopy] Medical Cente r Encounters Start End Encounter Admission Attending Care Care Encounter Source Date/Time Date/Time Type Type Clinicians Facility Department ID 2021-07-[address] [facility] Surgery [id number] [address] [facility] 14:33:12 HARSHINIE 2021-07-06 Hospital [facility] [id number] [facility] 00:[facility]:[address] [facility] 2018-09-18 Outpatient [facility] [id number] [facility] 08:26:04 2022-09-30 2022-09-30 Outpatient R [facility] [id number] Univers 14:40:00 14:40:00 FRACISCO nuñez of [facility] 2022-07-31 2022-07-31 [facility] 1.2.840.114 [id number] Univers 00:00:00 00:00:00 Adele PRIMARY 350.1.13.10 [place] [phone] N[place] dical [address] 2022-06-02 2022-06-02 Orders Doctor KRZYSZTOF 1.2.840.114 [id number] Univers 00:00:00 00:00:00 Only Unassigned, DEEDEE 350.1.13.10 ity of [place] [facility] 4.2.7.2.686 Socrates as [phone] [place] [address] [address] 2022-06-01 2022-06-01 Telephone [facility] 1.2.840.114 [id number] Univers 00:00:00 00:00:00 Fracisco GARCIA 350.1.13.10 i ty of [place] [phone] Nj dical NAL 044 [facility] 2022-05-31 2022-05-31 Abstract Candido Balderrama 1.2.840.1 [id number] 2 [id number] Methodi 00:00:00 00:00:00 Emmie-Zaldivar 38864.1.1 461 s t 3.430.2.7 Hospit a .3.860711 l .8 2022-05-31 2022-05-31 Abstract Candido Balderrama 1.2.840.1 [id number] 2 [id number] Methodi 00:00:00 00:00:00 Emmie-Zaldivar 80466.1.1 461 s t 3.430.2.7 Hospit a .3.311513 l .8 2022-04-08 2022-04-08 Telephone [facility] 1.2.840.114 [id number] Univers 00:00:00 00:00:00 Fracisco GARCIA 350.1.13.10 i ty of [place] [phone] Nj dical NAL [address] [place] [address] 2022-04-06 2022-04-06 Orders Doctor KRZYSZTOF 1.2.840.114 [id number] Univers 00:00:00 00:00:00 Only Unassigned, DEEDEE 350.1.13.10 ity of [place] [facility] 4.2.7.2.686 Socrates as [id number] [address] 2022-04-06 2022-04-06 Telephone [facility] 1.2.840.114 [id number] Univers 00:00:00 00:00:00 Fracisco GARCIA 350.1.13.10 i ty [place] [id number] Nj dical NAL [address] [place] [address] 2022-04-02 2022-04-02 Telephone [facility] 1.2.840.114 [id number] Univers 00:00:00 00:00:00 Fracisco GARCIA 350.1.13.10 i ty of [place] [id number] Nj dical NAL 044 [facility] 2022-02-08 2022-02-08 Abstract Fuentes [facility] [id number] 00:00:00 00:00:00 [facility] 2022-02-08 2022-02-08 Abstract Fuentes [facility] [id number] 00:00:00 00:00:00 [facility] 2022-01-29 2022-01-29 Outpatient R [facility] [id number] Univers 08:00:00 08:00:00 BRENDA nuñez o [facility] 2022-01-28 2022-01-28 Outpatient R [facility] [id number] Univers 08:00:00 08:00:00 PAOMATT nuñez o [facility] 2022-01-11 2022-01-11 Outpatient R [facility] [id number] Univers 15:40:00 15:40:00 LEDYCURT nuñez o [facility] 2021-12-24 2021-12-24 [id number] Univers 15:40:00 15:40:[address] FRACISCO nuñez [facility] 2021-12-15 2021-12-15 Orders Doctor KRZYSZTOF 1.2.840.114 [id number] Univers 00:00:00 00:00:00 Only Unassigned, DEEDEE 350.1.13.10 ity of [place] [facility] 4.2.7.2.686 Socrates as [id number] [address] 2021-12-08 2021-12-08 [facility] 1.2.840.114 [id number] Univers 00:00:00 00:00:00 Fracisco GARCIA 350.1.13.10 i ty [place] [id number] Nj dical NAL 044 [facility] 2021-12-08 2021-12-08 [facility] [id number] [id number] Univers 00:00:00 00:00:00 Qiangjun [place] 350.1.13.10 ity of [place] [id number] Nj dicdavid NAL 059 [facility] 2021-11-27 2021-11-27 Outpatient R ROGER ARAUJO [facility] [id number] Univers 15:00:00 15:00:[address] [facility] 2021-11-24 2021-11-24 [facility] 1.2.840.114 [id number] Univers 00:00:00 00:00:00 Fracisco GARCIA 350.1.13.10 i ty [place] [id number] [facility] 044 [facility] 2021-11-16 2021-11-16 Telephone [facility] 1.2.840.114 [id number] Univers 00:00:00 00:00:00 Fracisco GARCIA 350.1.13.10 i ty of [place] [id number] [facility] 044 [facility] 2021-11-10 2021-11-10 Outpatient R ROGER ARAUJO [facility] [id number] Univers 08:00:00 08:00:[address] [facility] 2021-10-23 2021-10-23 Outpatient [facility] [id number] Univers 08:20:00 08:20:00 BRENDA nuñez o f [facility] 2021-10-21 2021-10-21 Orders Doctor STEARNS 1.2.840.114 [id number] Univers 00:00:00 00:00:00 Only Unassigned, DEEDEE 350.1.13.10 ity of [facility] 4.2.7.2.686 Socrates as [id number] [address] 2021-10-20 2021-10-20 Telephone [facility] 1.2.911.142 [id number] Univers 00:00:00 00:00:00 Brenda GARCIA 350.1.13.10 ity of [place] [phone] N[place] dical NAL 059 [facility] 2021-10-13 2021-10-13 Outpatient R ROGER ARAUJO [facility] [id number] Univers 08:40:00 08:40:[address] [facility] 2021-09-29 2021-09-29 Outpatient R DORIAN, [facility] [id number] Univers 15:00:00 15:29:27 BRENDA diasy o f [facility] 2021-09-29 2021-09-29 Office [facility] 1.2.840.114 [id number] Univers 15:00:00 15:29:27 Visit Brenda GARCIA 350.1.13.10 ity of [place] [phone] Nj dical NAL 059 [facility] 2021-09-29 2021-09-29 Outpatient R DORIAN, [facility] [id number] Univers 15:00:00 15:29:27 BRENDA nuñez o [facility] 2021-09-29 2021-09-29 Office [facility] 1.2.840.114 [id number] Univers 15:00:00 15:29:27 Visit Brenda GARCIA 350.1.13.10 ity [facility] [place] [phone] Nj dical NAL 059 [facility] 2021-09-29 2021-09-29 Outpatient R DORIAN, [facility] [id number] Univers 15:00:00 15:00:[address] [facility] 2021-09-29 2021-09-29 Telephone [facility] 1.2.840.114 [id number] Univers 00:00:00 00:00:00 Fracisco GARCIA 350.1.13.10 i ty [facility] [place] [phone] Nj dical NAL 044 [facility] 2021-09-24 2021-09-24 Telephone [facility] 1.2.840.114 9 [id number] Univers 00:00:00 00:00:00 Fracisco GARCIA 350.1.13.10 i ty of [place] [phone] Nj dic[address] 2021-09-22 2021-09-22 Outpatient ROGER KAUR [facility] [id number] Univers 15:00:00 15:00:00 VAN ROGER nuñez [facility] 2021-09-22 2021-09-22 Outpatient ROGER KAUR [facility] [id number] Univers 15:00:00 15:00:00 VAN, ROGER zenia [facility] 2021-09-18 2021-09-18 Orders Doctor KRZYSZTOF 1.2.840.114 [id number] Univers 00:00:00 00:00:00 Only Unassigned, DEEDEE 350.1.13.10 ity of [place] [facility] 4.2.7.2.686 Socrates as [id number] [address] 2021-09-17 2021-09-17 Telephone [facility] 1.2.840.114 9 [id number] Univers 00:00:00 00:00:00 Fracisco GARCIA 350.1.13.10 i ty of [place] [id number] [address] 2021-09-17 2021-09-17 Telephone [facility] 1.2.840.114 9 [id number] Univers 00:00:00 00:00:00 Fracisco GARCIA 350.1.13.10 i ty of [place] [id number] Nj dic[address] 2021-09-14 2021-09-14 Telephone [facility] 1.2.840.114 9 [id number] Univers 00:00:00 00:00:00 Fracisco GARCIA 350.1.13.10 i ty of [place] 4[place] [id number] [address] 2021-09-14 2021-09-14 Telephone [facility] 1.2.840.114 9 [id number] Univers 00:00:00 00:00:00 Fracisco GERMAINGALA 350.1.13.10 i ty of [place] [id number] [address] 2021 2021 Outpatient R [facility] [id number] Univers 10:00:00 12:16:20 [facility] 2021 2021 Office [facility] 1.2.840.114 [id number] Univers 10:00:00 12:16:20 Visit Fracisco GARCIA 350.1.13.10 i ty of [place] [id number] [address] 2021 2021 Office [facility] 1.2.840.114 [id number] Univers 10:00:00 12:16:20 Visit Fracisco GARCIA 350.1.13.10 i ty of [place] [id number] [address] 2021 2021 Office [facility] 1.2.840.114 [id number] [id number] Univers 10:00:00 12:16:20 Visit Fracisco GARCIA 350.1.13.10 i ty of [place] 4.[place] [phone] [address] 2021 2021 Outpatient R [facility] 1040 [id number] Univers 10:00:00 12:16:20 [facility] 2021 2021 [employer], Ang - Db [facility] 1.2.840.1 14 [id number] Univers 10:45:00 11:00:00 Visit Adele Chester 350.1.13.10 ity of [facility] 4.2.7.2.686 Socrates as SUAD?BLEA [phone] Nj adam [place] [address] [place] [address] 2021 2021 [facility] [id number] Univers 10:00:00 10:00:00 PETER itzenia of [facility] 2021 2021 Telephone [facility] 1.2.840.114 9 [id number] Univers 00:00:00 00:00:00 Fracisco GARCIA 350.1.13.10 i ty [facility] 4[place] [id number] Nj adam GUADARRAMA [address] [place] [address] 2021 2021 [facility] 1.2.840.114 9 [id number] Univers 00:00:00 00:00:00 Fracisco GARCIA 350.1.13.10 i ty [facility] 4[place]2.[place] [id number] Nj adam GUADARRAMA [address] [place] [address] 2021 2021 Telephone [facility] 1.2.840.114 9 [id number] Univers 00:00:00 00:00:00 Fracisco GARCIA 350.1.13.10 i ty [facility] 4[place] [id number] Nj dic[address] 2021 2021 Patient [facility] 1.2.840.114 [id number] Univers 00:00:00 00:00:00 Outreach Jami GARCIA 350.1.13.10 ity [facility] 4[place] [phone] Nj dicwv NAL [address] [place] [address] 2021 2021 Telephone [facility] 1.2.840.114 9 [id number] Univers 00:00:00 00:00:00 Fracisco GARCIA 350.1.13.10 i ty [facility] 4[place] [phone] Nj dical NAL 044 [facility] 2021 2021 Patient Mendez [facility] 1.2.840.114 [id number] Univers 00:00:00 00:00:00 Outreach Jami Paola GARCIA 350.1.13.10 ity of [place] 4.[place].2.[place] [id number] [facility] NAL 044 [facility] 2021 2021 Telephone Catracho [facility] 1.2.840.114 9 [id number] Univers 00:00:00 00:00:00 Fracisco GARCIA 350.1.13.10 i ty of [place] 4[place] [phone] [address] 2021 2021 Orders Doctor KRZYSZTOF 1.2.840.114 [id number] Univers 00:00:00 00:00:00 Only Unassigned, DEEDEE 350.1.13.10 ity of [place] [facility] 4.2.7.2.686 Socrates as [phone] [address] 2021 2021 Patient Mendez [facility] 1.2.840.114 [id number] Univers 00:00:00 00:00:00 Outreach Jami Paola GARCIA 350.1.13.10 ity of [place] [phone] [facility] NAL [address] [place] [address] 2021-09-03 2021-09-03 Telephone Hallie [facility] 1.2.389.244 [id number] Univers 00:00:00 00:00:00 Liz PRIMARY 350.1.13.10 it y of [place] 4[place].2.[place] [id number] [address] 2021-08-28 2021-08-28 Outpatient R NEMO [facility] [id number] Univers 16:30:00 17:19:04 ADELE nuñez of [facility] 2021-08-28 2021-08-28 Office Nemo [facility] 1.2.840.114 [id number] Univers 16:30:00 17:19:04 [facility] 350.1.13.10 it y of [place] 4.2.7.2.686 Socrates as SUAD?BLEA [phone] Nj adam KNJOEL [address] MEDICAL OFFICE BUILDING 2021-08-19 2021-08-19 Telephone Billy Lu [facility] 1.2.840.114 93 [id number] Univers 00:00:00 00:00:00 Melissa PRIMARY 350.1.13.10 ity of [place] 4[place]2.[place] [phone] Nj dical [address] 2021-08-19 2021-08-19 Telephone Billy Lu [facility] 1.2.840.114 93 [id number] Univers 00:00:00 00:00:00 Melissa PRIMARY 350.1.13.10 ity of [place] [id number] Nj dical [address] 2021-08-19 2021-08-19 Telephone [facility] 1.2.840.114 93 [id number] Univers 00:00:00 00:00:00 Melissa PRIMARY 350.1.13.10 ity of [place] 4[place]2.[place].2.[place] [id number] Nj dical [address] 2021-08-13 2021-08-13 Telephone Billy Lu [facility] 1.2.840.114 93 [id number] Univers 00:00:00 00:00:00 Melissa PRIMARY 350.1.13.10 ity of [place] 4[place].2.[place] [phone] Nj dical [address] 2021-08-10 2021-08-10 Telephone Billy Lu [facility] 1.2.840.114 93 [id number] Univers 00:00:00 00:00:00 Melissa PRIMARY 350.1.13.10 ity of [place].2.[place] [id number] Nj dical [address] 2021-08-10 2021-08-10 Telephone Yrn [facility] [id number] [facility] 00:00:00 00:00:00 [facility] 2021-08-07 2021-08-07 Outpatient RADHA TRAMMELL SLESaurabh [id number] SLE 00:00:00 00:00:00 NADYA 2021-07-28 2021-07-28 Billy eMdina [facility] 1.2.840.114 93 [id number] Univers 00:00:00 00:00:00 Melissa PRIMARY 350.1.13.10 ity of [place]2.[place] [id number] Nj dical [address] 2021-07-25 2021-07-25 Letter Neurology [facility] 1.2.228.821 [id number] [id number] Univers 00:00:00 00:00:00 (Out) HEALTH 350.1.13.10 it y of [place] [phone] [facility] [address] OFFICE BUILDING 2021-07-17 2021-07-17 [facility] 1.2.840.114 [id number] Univers 00:00:00 00:00:00 Melissa PRIMARY 350.1.13.10 ity of [place] 4[place].2.[place] [phone] Nj dical [address] 2021-07-13 2021-07-13 Transition DAKOTA Kilpatrick 1.2.840.114 [id number] Univers 00:00:00 00:00:00 of Care Blanka DE [place] 350.1.13.10 i ty [place]2.[place] [id number] [facility] [address] 2021-07-13 2021-07-13 [facility] 1.2.840.114 [id number] Univers 00:00:00 00:00:00 Melissa PRIMARY 350.1.13.10 ity of [place] [id number] Nj dical [address] 2021-07-06 2021-07-10 Inpatient U BILLY LU [facility] [id number] Univers 20:21:00 18:16:[address] [facility] 2021-07-06 2021-07-10 Hospital Billy Lu 1.2.840.114 [id number] Univers 20:21:00 18:16:00 Encounter Melsisa MARK 350.1.13.10 [facility] 4.2.7.2.686 Socrates as [id number] [facility] [address] 2021-07-07 2021-07-07 [facility] 1.2.521.758 [id number] Univers 14:30:00 15:30:00 Joss ICAL 350.1.13.10 [facility] 4.2.7.2.686 Socrates as BLDG [phone] [facility] [address] 2021-07-06 2021-07-06 Out[facility] [id number] Univers 10:30:00 10:30:00 [facility] 2021-06-07 2021-07-04 Hospital ER KipRony [facility] [id number] 19:44:00 14:34:00 Encounter Jameson Kuo Kanwal Bárbara [facility] Clary Ballard Umar Moon, Marc R 2021-06-07 2021-07-04 Inpatient ER LOGAN [facility] [id number] SLE 19:44:00 14:34:00 2021-07-03 2021-07-03 Surgery Beronica [facility] [id number] 15:05:00 16:05:00 Angela Torres [facility] 2021-07-03 2021-07-03 Anesthesia Mitchel [facility] [id number] 14:49:00 15:35:00 Event [facility] 2021-06-30 2021-06-30 Surgery Krzysztof Ryan [facility] [id number] 19:35:00 22:24:00 [facility] 2021-06-26 2021-06-26 Surgery Krzysztof Ryan [facility] [id number] 07:30:00 11:59:00 [facility] 2021-06-25 2021-06-25 Anesthesia Marissa [facility] [id number] 23:59:59 23:59:[address] [facility] 2021-06-18 2021-06-18 Anesthesia Asad Santana [facility] [id number] [facility] 07:58:00 14:52:[address] [facility] 2021-06-18 2021-06-18 Surgery Logan Russo [facility] [id number] 08:00:00 14:45:00 [facility] 2021-06-16 2021-06-16 Anesthesia Argueta Calekatja Sandoval [facility] [id number] 11:58:00 13:03:[address] [facility] 2021-06-16 2021-06-16 Surgery Donte [facility] [id number] 10:30:00 12:00:00 [facility] 2021-06-09 2021-06-09 Outpatient [facility] [id number] [facility] 00:00:00 23:59:00 Herberth stanley of Medicin e 2021-06-08 2021-06-08 Committee Twin [facility] 1.2.840.114 [id number] Univers 00:00:00 00:00:00 Review Bertrand Ivy MULTISPEC 350.1.13.10 Hermilo 4.2.7.2.686 [facility] [id number] [address] [facility] 2021-06-07 2021-06-07 [facility] [id number] [facility] 19:44:00 23:59:00 Herberth e of Medicin e 2021-06-072021-06-07 Orders [facility] [id number] 00:00:00 00:00:[address] [facility] 2021-06-07 2021-06-07 Travel [facility] [id number] [facility]00 00:00:00 [facility] 2021-05-26 2021-05-26 Mauricio Hudson [facility] [id number] 00:00:00 00:00:00 [facility] 2021-05-26 2021-05-26 Transition Bennett EVETone 1.2.840.114 [id number] Univers 00:00:00 00:00:00 of Care Rakan B [place] 350.1.13.10 [place] [phone] [facility] [address] 2021-05-25 2021-05-25 Transition DAKOTA Bennett 1.2.840.114 [id number] Univers 00:00:00 00:00:00 of Care Rakan B [place] 350.1.13.10 [place] [id number] [facility] [address] 2021-05-15 2021-05-22 Inpatient X WILLIAM [facility] NILESH [id number] Univers 13:03:00 21:15:[address] NEIL [address]ñez [facility] 2021-05-15 2021-05-22 [facility] Dangelo Ibrahim [facility] 1.2.840.1 14 [id number] Univers 13:03:00 21:15:00 Encounter Neil Thomas 350.1.13.10 it[place]2.[place] [id number] [facility] [address] 2021-05-15 2021-05-22 Inpatient X WILLIAM NVJOHN NILESH [id number] Univers 13:03:00 21:15:00 NEIL nuñez [facility] 2021-05-18 2021-05-18 Patient Mendez [facility] 1.2.840.114 [id number] Univers 00:00:00 00:00:00 Outreach Jami Guevara HEALTH 350.1.13.10 i ty of [place] 4.2.7.2.686 Socrates as SUAD?BLEA [id number] Nj adam [address] MEDICAL OFFICE BUILDING 2021-05-18 2021-05-18 Telephone Twin [facility] 1.2.840.114 [id number] Univers 00:00:00 00:00:00 Bertrand Ivy MULTISPEC 350.1.13.10 ity of [place].2.[place] [id number] [facility] AND [address] [facility] 2021-05-15 2021-05-15 [facility] 1.2.840.114 [id number] Univers 11:00:00 12:33:54 Visit Adele [facility] 350.1.13.10 it y of [facility] 4.2.7.2.686 Socrates as SUAD?BLEA [id number] Nj adam [address] MEDICAL OFFICE [facility] 2021-05-15 2021-05-15 Outpatient R NEMO [facility] [id number] Univers 11:00:00 12:33:[address] [facility] 2021-05-15 2021-05-15 [facility] [id number] Univers 11:00:00 11:00:[address] [facility] 2021-05-15 2021-05-15 Telephone [facility] 1.2.478.263 [id number] Univers 00:00:00 00:00:00 [facility] 350.1.13.10 it y of [place] 4.2.7.2.686 Socrates as SUAD?BLEA [phone] Nj adam [address] MEDICAL OFFICE BUILDING 2021-05-15 2021-05-15 Telephone [facility] 1.2.164.277 [id number] [id number] Univers 00:00:00 00:00:00 Adele HEALTH 350.1.13.10 it y of [place] 4.2.7.2.686 Socrates as SUAD?BLEA [phone] Nj adam [address] MEDICAL OFFICE BUILDING 2021-04-07 2021-04-07 Telephone [facility] 1.2.840.114 [id number] Univers 00:00:00 00:00:00 Thurston A MULTISPEC 350.1.13.10 ity of IALTY 4.2.7.2.686 [facility] [id number] [facility] [address] [facility] 2021-03-25 2021-03-25 Telephone [facility] 1.2.840.114 [id number] Univers 00:00:00 00:00:00 Thurston A MULTISPEC 350.1.13.10 ity of IAL[place] 4.2.7.2.686 [facility] [id number] [facility] [address] [facility] 2021-03-19 2021-03-19 Telephone [facility] 1.2.840.114 [id number] Univers 00:00:00 00:00:00 Thurston Cata MULTISPEC 350.1.13.10 ity of IALTY 4.2.7.2.686 [facility] [id number] [facility] [address] DI[facility] CLINIC 2020-08-28 2020-08-28 Orders Fuentes [facility] [id number] 00:00:00 00:00:00 Only [facility] 2020-08-28 2020-08-28 Abstract Fuentes [facility] [id number] 00:00:00 00:00:00 [facility] 2020-08-06 2020-08-06 Telephone Freddie [facility] [id number] 00:00:00 00:00:00 [facility] 2020-08-06 2020-08-06 Documentat Freddie [facility] [id number] 00:00:00 00:00:00 ion [facility] 2020-08-06 2020-08-06 Abstract Freddie [facility] [id number] 00:00:00 00:00:00 [facility] 2020-08-04 2020-08-04 [facility] [id number] 00:[facility]:00 00:00:00 [facility] 2020-07-31 2020-07-31 Outpatient Nola THOMAS HUBBARD [facility] [id number] Univers 10:00:00 10:00:00 [facility] 2020-07-28 2020-07-28 [facility]calli [facility] [id number] 00:00:00 00:00:00 [facility] 2020-07-28 2020-07-28 [facility] [id number] 00:00:00 00:00:00 [facility] 2020-07-25 2020-07-25 Documentcalli [facility] [id number] 00:00:00 00:00:00 [facility] 2020-07-24 2020-07-24 Documentcalli [facility] [id number] 00:00:00 00:00:00 [facility] 2020-07-24 2020-07-24 Documentcalli [facility] [id number] 00:00:00 00:00:00 [facility] 2020-07-24 2020-07-24 Abstract Freddie [facility] [id number] 00:00:00 00:00:00 [facility] 2020-07-22 2020-07-22 Outpatient Nola THOMAS HUBBARD [facility] [id number] Univers 09:30:00 09:30:00 [facility] 2020-04-24 2020-04-24 Outpatient Nola THOMAS HUBBARD [facility] [id number] Univers 10:45:00 10:45:00 [facility] 2020-04-16 2020-04-16 [facility] 1.2.422.858 [id number] 12:56:21 13:26:21 Visit Alanis Garcia 350.1.13.10 Kadie 4.2.7.2.686 [facility] [phone] [address] 2020-04-16 2020-04-16 Outpatient Nola KARTHIKEYANCELY [facility] [id number] Univers 13:15:00 13:15:[address] [facility] 2019-02-18 2019-02-[address] [id number] Memoria 03:46:00 22:27:00 [facility]patient [facility] [place] TE[facility] 2019-01-26 2019-01-[address] [id number] [facility] 01:39:00 06:10:00 Emergency [facility] EMERGENCY DEPT 2018-10-09 2018-10-[address] [id number] Mem[facility] 09:44:00 21:45:00 Inpatient [facility] 79 [...] day s AFB Smear (test code = 86737-4) No acid fast bacilli [facility] (non-sputum)2021-08-07 10:55:07 Test Item Value Reference Range Interpretation Comments Result (test code = No acid-fast bacilli 6463-4) isolated in 42 days AFB Smear (test code = No acid fast bacilli 57927-6) seen [facility] smear (non-sputum)2021-08-07 10:55:07 Test Item Value Reference Range Interpretation Comments Result (test code = No acid-fast bacilli 6463-4) isolated in 42 days AFB Smear (test code = No acid fast bacilli 29240-0) seen [facility] + smear (non-sputum)2021-08-07 10:55:07 Test Item Value Reference Range Interpretation Comments Result (test code = No acid-fast bacilli 6463-4) isolated in 42 days AFB Smear (test code = No acid fast bacilli 73011-9) seen [facility] + smear (non-sputum)2021-08-07 10:55:07 Test Item Value Reference Range Interpretation Comments Result (test code = No acid-fast bacilli 6463-4) isolated in 42 days AFB Smear (test code = No acid fast bacilli 11536-7) seen [facility] + smear (non-sputum)2021-08-07 10:55:07 Test Item Value Reference Range Interpretation Comments Result (test code = No acid-fast bacilli 6463-4) isolated in 42 days AFB Smear (test code = No acid fast bacilli 29746-4) seen [facility] + SMEAR (NON-SPUTUM)2021-08-07 10:55:07 Test Item Value Reference Range Interpretation Comments CULTURE (BEAKER) (test No acid-fast bacilli code = 1095) isolated in 42 days AFB SMEAR (BEAKER) No acid fast bacilli (test code = 994) seen Fungus culture + [id number] 01:03:45 Test Item Value Reference Range Interpretation Comments Result (test code = No fungus isolated in 6463-4) 28 days Fungus Smear (test No fungi seen code = 1406) [facility] + [id number] 01:03:45 Test Item Value Reference Range Interpretation Comments Result (test code = No fungus isolated in 6463-4) 28 days Fungus Smear (test No fungi seen code = 1406) [facility] + [id number] 01:03:45 Test Item Value Reference Range Interpretation Comments Result (test code = No fungus isolated in 6463-4) 28 days Fungus Smear (test No fungi seen code = 1406) [facility] + [id number] 01:03:45 Test Item Value Reference Range Interpretation Comments Result (test code = No fungus isolated in 6463-4) 28 days Fungus Smear (test No fungi seen code = 1406) [facility] [id number] 01:03:45 Test Item Value Reference Range Interpretation Comments Result (test code = No fungus isolated in 6463-4) 28 days Fungus Smear (test No fungi seen code = 1406) [facility] [id number] 01:03:45 Test Item Value Reference Range Interpretation Comments Result (test code = No fungus isolated in 6463-4) 28 days Fungus Smear (test No fungi seen code = 1406) [facility] [id number] 01:03:45 Test Item Value Reference Range Interpretation Comments Result (test code = No fungus isolated in 6463-4) 28 days Fungus Smear (test No fungi seen code = 1406) [facility] [id number] 01:03:45 Test Item Value Reference Range Interpretation Comments Result (test code = No fungus isolated in 6463-4) 28 days Fungus Smear (test No fungi seen code = 1406) [facility] [id number] 01:03:45 Test Item Value Reference Range Interpretation Comments CULTURE (BEAKER) (test No fungus isolated in code = 1095) 28 days FUNGUS SMEAR (BEAKER) No fungi seen (test code = 1406) TISSUE [id number] 12:44:09Surgical Pathology Report Case: [id number] Authorizing Provider: Logan Russo MD Collected: 06/18/2021 11:41 AM Ordering Location: [facility] Received: 06/19/2021 03:44 PM PERIOPERATIVE SERVICES [...] IS RECOMMENDED. Signing Pathologist Direct Phone Line: [phone] signed byTom Paige MD on 06/24/2021 at 3:29 [id number], [id number] valvePerformed.The interpretation of this case included the use of immunohistochemistry or special stains.PRASHANT ROMERO AND NORMA JOHNSON, AFBControl Slides Examined: In-house known positive controls were evaluated alongwith the test tissue. These control slides run alongside of the patients sample show appropriate staining. Internal positive and negative controls when available are evaluated Immunohistochemistry technical testing was performed at [facility], Pathology Laboratory where it was [...] qualified to perform high complexity clinical laboratory testing.[facility], Department of Pathology, [address] [place] [address], [facility], [address] [place] [address], [facility], Department of Pathology, [address] [place] [address], a. Received in formalin labeled with the patient's information and "mitral valve mass" is a 1.5 cm in length by 0.3 cm in diameter robert-pink tissue, which is submitted in toto in cassette A1.MP (resident)Tissue [id number] 09:50:09 Test Item Value Reference Range Interpretation Comments Case Report (test code Surgical Pathology = 104) Report Case: [id number] Authorizing Provider: Angela Loco Collected: 07/03/2021 03:04 PM MD Brian Ordering Location: [address] Received: 07/06/2021 09:08 AM Service Pathologist: [...] clip x 1 DIAGNOSIS (test code = [id number] 3220) FuZzEwMzNcZnRuYmpcdWMx IHtccnRmMVxlcGljOTYwMV ubgcHwBHIpdUFzM3Dgkzdq QEjwRI2jSV5laQamxHNazG BaLKIyNuIvt1jyy675uOFo q5jaWMEOevgllMq7qUzeG8 2at9L9HsgdW03nxRBhRVZ6 NOOdITWfmHHzNZAuNLF5WN FqwBRuM3wtACEjCS2dghuu IFiaBLtoCFYtpHB9NIMvaL HlV6WyZRFjKPclJYZzyoz6 AlUlPt9uxZTafOhgWSbnHF SgMIMkVTsyMKReMtOkAS1x P28OX54hMDLTU7BDQKVAIL yCIRZZUZ8XB4r6CVHfjlDk LSAgVFVCVUxBUiBBREVOT0 0RKCOvwiyjHUKoCl5tW60F L31qQGWEQ5gBG8ZGE9EXTG xOSuLCI6yDBXkgErzYMDLF RfctUJNrNC0uNZ6RXXKFVM cALSSKHMgTYA3BQwYUVfIZ BGVGOUJENSMLKE4HAOAmhV FyICAtICBORUdBVElWRSBG G0RdJLtGDV1KNuTLPZQKCV LSETRNSTEtW8RfOZPXJHvT JP7UJRuzJMJfzNXqZPAoCU CQKA2MNDRWVWjEIP1OU2AR FdXAEiyeFA9NJKYrXZDUP5 BTWTpccGFyICAtICBNVUxU SVBMRSBGUkFHTUVOVFMgT0 KbHXMELRvLNhEOCCGVJ47A XHBhciAgLSAgTkVHQVRJVk ReRh0RUKxCL8giU5ZCSFGf LGmRSAcHA4eBJS7LCE6JOX pXYyJYR7gwtWZsMVZrhsWd wYVnORDwEQCUHT1PDLFFVn MNK3WFTeADOKLYOFwWQLDO AI9DN3i1IFKyxcGfLQBmTE SHACoPFUYeSoFAZ95UUwDV IK0NPSLOTiRQYCFrSJHVJq 7GUNdbAFLaVB5kVY0XJ2QZ SVZFIEZPUiBISUdILUdSQU AAODPDC2ZZQLCPOIAHNwVW VArMJ23WOcUIYDUhxp88ZE C3KwPtv7E8WVZ5ZXOdXPYn g4awCHNlcHRqHeMlVdZuVh PfZqvvhYOxYGVpYaUsm5ew c235dETjd8hcZHKyXqN8dD JhPWXbvSXuS392LWScPXpf f2pew5YxESHcnFYzy6T8RY DXngnsxHg5dMhvK26ca3B7 SprgN7pqXXOwTMFsJ1YjVA 4uLCBaRqk2MDM8EHO9YRDg YKUbS3CfKA8gXTIulDMfKT v4h0slyTrfTZNiWSB3m9fm ECdfdcJmFN2jng1nbNl2i3 xjczEgRGVmYXVsdCBQYXJh S1PvnNkdYk2qwAf0lOhbTw qsOXI8Voi3IW4mxy41qyz7 zMdnKOOcltjtUeM5OCobRP EylswnBRa7EKcwTFKagHG1 JNSkhUCuS3GxTCSjMT7syc k6WOC4TWxgFLNbGtD6UFHp rQPaYRJhsRhpDAirw322PP G7GoCnAE2gF2Rzu2D4iP0i aXRcZGVmdGFiNzIwXGZvcm 4vkXWqFCcno3GoTLA1oiG5 gWUqgKCpZBIuAfV1YMepVF 0jld27LSOyCTX5kv9ibVZd hKicbtGduRZiGLtwQ7JlVX Rjl992JCCiN7DyNWMdf4I0 mrMjMvMjVRDcyLK2vsP8AS IoVE1eoolfp7pcSNznYCrj OTVuetM6zcF4ALWzmLUeU8 ZifC4kPNKqAN5dqurwl8xv BDI8KPlfXVErXGW0IbOkAI Axo3Hdjdf1CwGgk1WbvYHy QFzgH17sm892YKBumqQaO9 xwbGFpblxwbGFpblxmMFxm obN9BMVcARwheqwhFJAzHB wrL3dfUbExRJVuuJifSIge o0IdNVHaXGJfGlPjtEKlUR OvWag1OJMrjZBjAWCoBtIe S5kpzzpaTqLVADCxg8ehE5 dvaRRHsEMtP0FcHZxajgOu OPhaUVlbREErEJX7QR3eVI KdPIGbwa82 CPT Code(s) (test code v9bbjTZlJYKcjUG5AmZxQD = 3357) Hvd6yom5LohLBznQRyMJrl ySMpjeAxrc72vWJ5aT35XO 8iRMJrMhZ1ANGgnyG3Wuc1 XKEfELBezGQzP033d0qbv6 mlxtMuhLV4lYyfIQVvrvdr EmW0PFlbMBMbyljnPTv8DI feCBWmuEA8DLDcmKLaW8Ew QZFwUG5mkgj9YVB4LRysFR IeGlB7EJDhjDXeUKVanQaa FUqzh505KDP1KtByCIOpka BtkSuizI3iCrQbTDM7NKCr DMl0PPIjlj9= CLINICAL HISTORY (test f6brkUVeCZKfjWH2VdKrFT code = 3356) Jfc4yxt3SfkLEzkCVuMXtw bNFzbuQihh98vVD3wM09JC 7gSJIiFgR8QRAzsfR6Gjd0 RLSzMAJceSYoD228n4vyg7 ostwZehRC8JRKrJOAkZ8Po ZG6kYHXuzPCcD11cmRXvZI Q3JQDtCGQlcXLaYQEiOJC3 ZYKakDMlT5zbMIQdYO8prq tdRWdxDRflXTSekHQ9UYBd xYMxZ9XhPIQfFOkuEIQwus j7CdYqJp6frDJuaKlxBMhb YXJkXHJpMVxwbGFpblxmcz GqZUJsHRBPya3iTVFdBqto lTWeA6xqBC4ihMwtQMF7vi ApYEBdJvqyAXJchj2mCXSm OrvwcJZoJ1cuPQ1qhVprWK G4pTWfYHJmmv6= GROSS DESCRIPTION (test h8fkwLRhAINrvCRFGESxUk code = [id number]) vlzjZnDNDjfWGtB6Xyaher XStvOV6oJK0vdNwqfDAxpC ZtOY8SXSUwTuZoFWMvpYSt klSaIyZiIWOmlWUlaQC1YR BdIT0rfnuoOGjlQCjtVZIc dtN3LDPpyZRvM2EzPDDlCS 6qpgccJKL3AUdkjP7fwzXY OgmoQd1qiFNajVdwUuIqAs NoYXJzZXQwXGZuaWwgQXJp DCy3xZ1SEqshT11pq3G2Ba o1UWWrXCVtZ3DdMI5fAMPj cACgT00LDjzaXDO3XCCTKo dbMALhXN5Lg1zgGSKyvFGu QAA2YXrruXMyNJVcHQClEZ s2RIEjFYurcAYbNJ2nyOkt BtuzpUyrk0MecZQtAHalSV ZuHQYbNCyeFGNnJP3IArUz YKjVQmwkHDhhZaS8XIy5BV QUVmPfGzEqErojTIY0MZwr DJf5OWu7JSaFTbM1WEC1CZ XqEMpuUZNrZlxdOTk9QCSx XFxmIEFyaWFsIFxcZmwgXF lbQ52yxPgaqX8pUH7tRF0j zLHxFGZwgP6lND5jT5IkeL 0uXHBhciANClxlcGljTmVz dERvYzEgDQpcbHRycGFyXG xpbjBccmluMCANClxsdHJj aFxjZjFcZnMyMCBSZWNlaX LaXUZhrnTbp0BjJVjbdsKv YWJlbGVkIHdpdGggdGhlIH DwhXzonyGvA3I7nxTcDZ6q IFNmUEFtM3WgJCDlY63gOZ VzfE5eQAPsTR2eKRm6FEHd EWKuSvrbsN6bsHJmEWRucM 6bYLDqO1RcUgLak32bkCB2 ljDkSmDtHFLshv5frT7fPK Vfuh6hBCNzs2E2CRVcf2R0 ZZYvMD54HHnfYL5jFRpfWS 4xIGNtLCAwLjYgeCAwLjMg eJBvGgYrQ02vYvKmBCnxAI RtWLSnlRAcTEepMLB0Ws9r dDSyWLUtvzY6v8CrLXwbAQ IdTlakOBLsVJwqtOQaAR8F LBLmMFynvrMvFS9MJQZwIJ ssPHKtcSJZLBO0BC9dAWcv cZSshcnpTWMkT2VfW5Gzkm PryUJoVLCaioMha2zjWPD5 XHNsbXVsdDBcZnMxNlxwYX N4QGs4NIqdNEAqI0RyB8Fv HAuwQMK3XVPrVcZxIYFtYS JHNvPbEsKdAcP1Unw1OzMi CQn7SBydU4CIXQXcEMM9AT V2HVP0UbO0IMo5LIRCEj5t DNWjIBG0NqB8KFT9YuW0ZJ xcdCAyIFxcZiBBcmlhbCBc DBHuOBnmjyE7AIWxGVJteV jqaB4lMm6uAD5uaPFiVLOy qO3bBC0kBgnriBStUVIuOA 2nxR7rVfhaHDEjQUlcBLHz S68bn6NDe8IcAY9NLQp5uw UqibdhoP8kAQYbkyWeYXho tMAoY9yvK8ZwMLIaNxKiDq PmJPp1FTWnkB3cQx6tmWSe pB8cdYPnESdfZDB9cISlHX TpRSYdIBPtHV96TLjVQZUy bmFtZSwgbWVkaWNhbCByZW NvcmQgbnVtYmVyIGFuZCBc sDobRoDmFGc6M0RkgJoiNV Oze1sesi9pyUenhNZsq8Ra cxEpppngVJYnCSKlv30zrE Y1icDiAfZlpZj4kZBcAYW4 IE5fuDuochgtmPOwLNq6zQ MuGPZhWlFlcIagt1DeVPur LjQgeCAyLjEgeCAwLjQgY2 7nuL7zLWuuklCcSFPrZV7m RRQzUKYkpAUjuG6vpcIymr YnqPMioOG0NQUtpY2inT84 wgIffvHRKL2gcZZdPS2VXJ BhciANClxjZjBcZnMyMiAN ClxwbGFpblxlcGljTmVzdE JnApAsfKwkjF07CDWptHKa ASE1UT2uZJVbqlgsVSEzLF KmESM5WFjzfN06zYJrSYQy QROvpCMzhR2Fa6laUDOgiV TfGPY1RWtpdALjTNScTKCp EVvcLkRkL5UTAQLuOcUuFH B6PVExHZb9YMf0IA4IOqMc QFBmRELjAfK9XPFhXNl7SW poII0SWRP3Efb0JGP2QVX1 NTMyOCBcXHQgMiBcXGYgQX EnCSprVVighXQfNB6epXuj rjZ9OTGcZNhcDXOcOHRcjA xwLPMOk3kafbNdICMeM2k2 T6SyF9VdONefMo1kpCNvFT 1FGFEnfMUQCTQ8SU8bJNYF ClxsdHJwYXJcbGluMFxyaW 7yBY2ZSMe6wzUcHSLvMAjl hwLdJNHvW9DbnhXhJHjlGA Jjpc3ekGwzMLdxXsXvMROu k1y0vCP5rNVgdAS8wEIwgR vgRoUeRZ5trVRnHY1eOVfy ICbhleKvx3IfVA34rDUkli TrogAyMYH2PrUnMBggCSLx g8m8uNemA41lj74uhfzgaV UhEBFiIS2prN1jJcIcolKr W14bf3hiuQNmd7UpgXBepU lwbGUgdGFuLXBpbmssIHBl MUBqP6EhACYrYIPdl6J2OI Bgf2C7QNXqEz08QYnzHz9a LQvgLP17ZVVrDFwpXMMkM6 QlK6A3AKqnWBSMyKIoq8Uu G4saQE7izAImh4HtwAq1iM BkOCnnSOVmrL8gpL7oVqWp XHBhciANClxwYXIgDQpcY2 YfHOFqSfFaKGtptKlpoX4p EASxJ41zz2XLf8JzRAJyEQ dda2qecJqnz8DdkBCrPIrz LXOyuTTeLQmmpU6iSsVqq0 cweKy4AKnbduK4DNDmxq7R RmksVuvdmAztq1DdtRLkSP ipVICbGWUhKRgtQDQyNH0Y YdNgAGbMUvguPFufHcH1DD b7NVPIHzLpIkDgItdjMVT3 JvSaLNx3DRk4GGsYJwY2OA M4SVIxQaGhKDCfYzusHJo3 IDIgXFxmIEFyaWFsIFxcZm ajDFsqS63cPzRgBvgbbNYa rrRMYqLSi7y2cIhcT72he1 4cFEQTqdDjs2EfcoPoFgpy EQJiSJrqXIGgP71lz9OMd5 BfZK4SENu7evPtvszohM2f CKHgedWfQNxwnZOfK0yoZ5 YiNFHnStYdNrLdGVw4KOOv fP9iEa9qyKUbnN4pdTAvOX lcFTU6yDMmIIPuBPJyTGPb MH34IMnEYGNbjzCnOTecnZ VkaWNhbCByZWNvcmQgbnVt YmVyIGFuZCBcdTgyMjAgXC p2D0FevHhdWLKxk4vzsj85 bvZxi5GcwkLcFTIrqUNcCE 8hKpfvcE86LAQsKIPsXNCj hWrgQFyuExLtqiFsA57hc7 gjdDKfu2AejYNutJjkaRJr dGFuLXBpbmssIHBlZHVuY3 EfWPFjXDQtv5R9IQKmp5A5 KTWfGa2xBAxhUr1mFJfqJG 73OISnQTofYPJpF2OmU6K6 KXmxDNUUzBHzp9UpG7peOB 4aeQGxf3ApfCm1uPSsYEhk FUEkrC3ikU2jTNHoACDyIG ZsnaCTYhalSMWoWJsVm2Jv rCyxWGPiK9h3b81lV5jbxA HyREQRBHZ4gRUjmyChsBKx DK1DZLKodkXAKossSbNuLu MyMiANClxwbGFpblxlcGlj LpTkpESbCqGemFsuoA13IT BhgWEcGVH3HT7rBKKsgqdc CJHuXUZkDJG4TPpegH94vD XkMVYqEFKdoOKtiP7FYAVy YPK4MAfziW85dRGdTS5CCD LuCXP5IBYihNNsQIR0UT3x fQ0KfQ== MICROSCOPIC DESCRIPTION r6umfINgCGYouIO5RpYwIR (test code = 3371) Kcj0itp0CvbBIsxRAbQFfe nXFhteCgki51kGS7nT37GX 2qHQDmJjY7JGFlipC9Xml7 PMXjCQErvSUcT717b8ukz4 addjMpeQW8nShvCZAhbwfl AxC0XVndWSCblmdsOYv8VC rnRFTzqUY1LMPhwAKjU7Jq KHEbFD2oxsj5IHG1MJooTI TkUqX2OCEekPChFIPikOki NQkzf794TDL6UyZrJCQujc KivZoagI4vXwPbJQCKNDXp k3GqAEBoVHUmiagrEKDhPR Bhcn0= [facility] Center[facility] [id number] 09:50:09 Test Item Value Reference Range Interpretation Comments Case Report (test code Surgical Pathology = 104) Report Case: [id number] Authorizing Provider: Angela Loco Collected: 07/03/2021 03:04 PM MD Brian Ordering Location: [address] Received: 07/06/2021 09:08 AM Service Pathologist: [...] clip x 1 DIAGNOSIS (test code = [id number] 3220) FuZzEwMzNcZnRuYmpcdWMx IHtccnRmMVxlcGljOTYwMV aowwLeYEYnfWWjD2Jxrjei GQefRF4xBW8abVbucQLhsB EqBPEqUfUal9wyj334mUOs t7sySOYUvnbwjQh1jWrsM5 8yf0M5QmavE80kfJChZZK9 SGAuXXTrnOAjHICoOTG5ZR YslJVvV9uxDBVeKK6sprzu XBbqHYweRURktGA0VIOajD BfV1DwPJWnAMutUDVeuoc6 YrKjBs9zyWHnkIlsYSkgBW TgBFMbGKpnBLGtIoQcKD7q E85SR82jLLDNC4HRIDOIQY yNREQPKJ5OC2f1EMCwoqXv LSAgVFVCVUxBUiBBREVOT0 7FHEBshjcuCKKyQu2dO74J Y89sULTCY5sFL5LDK0BZCQ ySYdJKL3gFNUeaQzxPVICR QayyLOXePZ7sPM9TCFWVUZ eFRCSGMOtYFI2OAhIIAnNJ HNDYIVWRYWQFFD0FFYQgkW FyICAtICBORUdBVElWRSBG D3RrKMpQAT8PGpGBQSEVEV HCQPDUDRIkO6AdVFWIXCaG FB4LGJsuKRTydGYjEYGfOJ KTVW9GCACDVKzWMI9CQ3VN FpYQEmrqDL9DNGEnYLCLS9 BTWTpccGFyICAtICBNVUxU SVBMRSBGUkFHTUVOVFMgT0 MaUJNTALyVTrZMQXHZQ17C XHBhciAgLSAgTkVHQVRJVk AoPk8SRAjTC0ivA4YKIAKr WCcIEIvYF3aKBQ1ISA7BZM oSMwGUN7nezBWgIIEnxbTt gRXjMDIoZSMTVM4TVEZHVw UVU8CUIvITOWWCYDmFYKED UH1XE2a2UHEvkjEdLPVbPN OTDLmPWILsCsRIL03XMeVI SH4YTTFKPdCRCJNxEDLEKh 9CMTwfHNIrDA1aGW9UV0KO SVZFIEZPUiBISUdILUdSQU CWFMTPU4SATFICJNBPBwFV ZYaEI30GTuLLAVBvuv68EO C3YoYlb1R8PPJ2OVFzNZGr m6smQIOjrSHjDfIgMrNiZj AfIysbpEQjJTTpDsGxf9ic h703bNUcq8udRVLfRzX1yW GyIETyzSOvA045QAOmBEhi b2geg2XbDADfpMBks2T3MG WAvhtxdBr5pScmX20eb0U9 GfkzB8itFTDzBGKuA0CzAR 3oIAPoCqy3BRV7DBW7ZJDb DSWtE1YuLM6fEIQsrZPqGX x2d7jqwJsyOHZrAAY9m0pz OZadprDuQZ5krq8gfQf4n2 xjczEgRGVmYXVsdCBQYXJh X1NedCptMq9cbUv8zRazTt bjQZC4Tdm8MF9jcy82ujy6 hAmfEMXzrbokGxT7AJugRN TsgupzSGz2WUpeZOLblKP1 PFGnmTKfK1WrAJAaUF5jxu g9XOM6HNhiDNShLcQ1MCAz yBNhVLFqaTzxNYaqz382BB A8WoTiIN8nM6Fzv1U6bP4e aXRcZGVmdGFiNzIwXGZvcm 3lmJNoFUrxi5ZrPIX8noL5 cKJfrKYrKQInLwW2RXfyZA 5qpw89ZMHdWRP2et1xhQLl bVicntQdlHKzZJaeC5XaRV Nik831XOMzG0HzUSOvh3W9 exFsMcAtESCdzOP0caN7VS BrNH4opnhvb2qpTEhaSTuj VWGlwgB0zyZ8PEQhgNMxE5 PfyE5uDFJuOT2qpahbu1is PAR7KWldHIHjSNX2YlUcPZ Wjl7Ulspx9GcEgw0TsdPLr UBtrO03br985BYDwneIaH7 xwbGFpblxwbGFpblxmMFxm rkZ0IFIfETkqiueyPZAuOG uxD2dfRfNsIBRwnUxvUTvh m1BeUIDvCZOnCyDjqNJaRH UvDav9VLOnkFPrBVJcRzGj A9escugcMeTXQVHvq0czL8 aqmRLDmMEaZ8ZgOLkqswTr LAzgSZlsERUvHCJ3OG0eIF XwRFIlpk44 CPT Code(s) (test code a6gucIIhWSUhiFJ3GbKyQL = 3357) Jdh4ihw7DdiGFvqADaMUsi kOPdfuNlxs30gDN4nG36RF 9uDXRcGnL2VSUrskG9Aoq9 NYBeIERdaVTrN578f6noi3 obvgLmpNO5lTpuQXYgqzgt BpK4AVudYAIolhejLQb0JN ooUARiyJB6AXMsmSAuO2Co KVNyHX5uxbe2BKL3TTbnNP RdXwB8IREdyKZfHXYvrFkn HXfni291ZAE5OhRlFIKgms QgzIydqH6vXkCsQLN9FCXw WNd2HEPhzu1= CLINICAL HISTORY (test l5akuRReOEKalNW2HiKjNP code = 3356) Vsh1vbq5KxhHEzrPRyYIug eCAidkEtyw77kFU0wL56FJ 4aNJXyFnB5QBKpcyP2Lug0 RMNpJDKdjZGwW438z2qxd6 utfsIglLB0SIVzBODdN2Pr FY2nNCJbhKLhP38rlROiBJ H8AMPsIRYffICeENZvOVB1 JDQszDWrL3txKLCeSF8dfr pbIKzvUTdtINGyhKE7JCYm fCDmE3WcKDAwGBvgBMKeky p3PtBoPt0xyBWtjUxzGKna YXJkXHJpMVxwbGFpblxmcz EhZTGvIPGHqk4gHKUqQyyf sKJbU7ynKV4mzQqtODS6af UjUGChGetfKXQcmo5lHQEa HledaXUrG6guZG2saPkbQU H0pYFrHCElhr6= GROSS DESCRIPTION (test n2vpuQUhPZDolYPASSXoKc code = [id number]) wjleGeFVMbuSQaI9Ayvvfn MTkfOW2xEY3ckOvryAOmsX CzVT4RHKFlCfZgWJDqsWNf fqFmFwTdSPZutBAffYJ0GU MvRH5hyhtnQSzvFYwzGLLv fyA0VSRqdLBeX2BdIYTaSC 1bsttdOOL7MRyhuC4bznDZ NlyqHx8ihWPtbEzjAzQwOv NoYXJzZXQwXGZuaWwgQXJp ITz5pJ5ZWrufL77nz1B2Pd q6JXEfOHMfB0EkTJ0cFDTl cKTzO24TYtnjDHU1NCOEWm ynPFZnIP6Jd2wbBJRonIZh UBR3FSxaoIDmIAKlIYMcBZ v8POEpSUsjsHAcIN2gzRyi WmhjbVqve6ZmdFLtKMkdEP XbZVVvKWwnHQUfKA6GSwDj YAbVRntgMTwbViX7AIj2DM EIKvEtUcAzFnifGGX4JLdc ENs1LXn1UTkJIeJ7JEA7II KhPOvmPUWrOobxWWa4ZZVk XFxmIEFyaWFsIFxcZmwgXF olU09dfHnbbU8uPY3xRK8z nIUuTEPldX5mZF5eH2LyuN 0uXHBhciANClxlcGljTmVz dERvYzEgDQpcbHRycGFyXG xpbjBccmluMCANClxsdHJj aFxjZjFcZnMyMCBSZWNlaX LeRYXvmmTpa0MrMMtfzfMf YWJlbGVkIHdpdGggdGhlIH GubYhhxyWiS6T6rqWpWF0d UJQkMUPeQ8CzQVXuS59aWY NzdX0sPPGqIN5kMTb5TBQc NFWxOiuvlD2hvKHmAEFgeR 2cCZUvS1ClLfNns85glEV2 ffXzWxVoWDWtbq8hqO1tHA Cxgb6cHLRpb1V2BYKoy2L1 PYNyCR52FBzlAH1dVXvwPS 4xIGNtLCAwLjYgeCAwLjMg oVNuKlKjZ77eZlQkIZewAY HqLNFbmZCeIKxaOEB8Hz6w oLGpBSTiqsE8z5OuXVqeIC XpArqcAIUtGGeixVXtYK7N FBWeJDdgzlSqTT3KDBXnFN bmFCHjfIQENMU7BY4sCXna nFKhastoSAKoE5QfM3Ipdq IqdYLcIRGgvlNnl5ouGZM2 XHNsbXVsdDBcZnMxNlxwYX D6OWe1XAkoRKYoF0GlP4Mo LLmdKCI9YFYmMxAnCWUwMG JDWiNqAdMaCtG0Aql5OgUs WXc3WIfsW1CXDCNpFJI7GO N3EXJ3WaF7RSg1EPJDBg3t MDUrPHP5SrV0TMN2WoY7WM xcdCAyIFxcZiBBcmlhbCBc IRLbPYavoaJ5KYJzTELpcP aaaX3jFk8qWP7ftBRtAJPf bW7pZK2oMweamQFhAPOaDE 8bzH7uPhrsXOLrVVthYPYx A16cc0NKj6IgXY9QGLb2ru VusghelN3hAHJfdmRjBUat vWTgK0tzJ2KkPFEeTtMiGu PcKOi4DGGirV2dEl1mjMCw aK6jgKKzHUfgLIJ4dHXsLH UoWBOaWHFfWY29PDaMULTw bmFtZSwgbWVkaWNhbCByZW NvcmQgbnVtYmVyIGFuZCBc eIsuMbKgNYy9D1LfwGluTZ Lqe9uoae0qgIclgGXwu5Ec nxFbpiwxFTRjZIFxv49jlD C0rgXjGtWedVw9pUSlGEC6 CZ0aiFascjuqkQAwGBx3uX FkMIUcDeLsoCuiv4WwSWtw LjQgeCAyLjEgeCAwLjQgY2 0rlR0xHRylujErQZMhGW9r WXQoDZWmvKAdfC4vsqZqal DaeQCrfTW6SUWdtO8etK28 daVfrkOHZQ8gbKHpHL0LSB BhciANClxjZjBcZnMyMiAN ClxwbGFpblxlcGljTmVzdE FyYcMqwAfxqE73TRBacBNe NGP3UT4eVINgjnbbWHGcGR GyCKX4VJpbrQ28jLPiQLYa ZTDhwGAryR1Li3icGIXzoE GnFKT6CAnnjEUkMJXqJAIj VUeoPpQsM4QNLAOhGwQlOZ M0LYWzVYf1WHx8HN0QGqGq ZUNpWDIcAkT3KTVqYRq1ZG cqUQ9FQRV2Yaj2LGI6GZL6 NTMyOCBcXHQgMiBcXGYgQX ZpVLafSOhumRGbHF1ieIxa fbF3DTEfXKtwLLMtTDDovY fjCFXMl9jkyyYrQWMaH5u5 M7DpL5BuRXnnOs2ffUGvVC 4KMHQzoMOPEGB7LC4ePTXP ClxsdHJwYXJcbGluMFxyaW 8jIP5LXQz6giByXWHnAAfc tfOqTOPvB7DvhfPzGSmcNP Oxfd0lsWamONprVqCpWAHf t4r8gOE1kIGnbDR8yFLkxW clHdSoZS1tjLFtOI2yZOwp RCkqfvRom1YxUP00cTWtcg XassPwDAL6AhLaPJaqYJDb m1k6pVvkN41ha27evdvjdY CyHVAdFH4daP5iBaPqwtSa L77ub4svlOMnp2WjbJKilU lwbGUgdGFuLXBpbmssIHBl FALcW1WoSITnGCWrz5U8TO Xpm6D9UBJdPa47BOgzUd3j FMqkWA01QXSrXGhcZFGcX9 CkK2I0DMskMHSOkKEjs1Wz K2phOD5nkWRwd3VqmUm1pE WwCFbwXMOmlM3rkX5rJlOb XHBhciANClxwYXIgDQpcY2 NcFYAnNeKrWBjluYvazV7l KSWlW49zx6OVb6PuUHJbAS iia7xorRsbh9MokPGjOBky VKOjvHRnWCmrsD8tQbKhd9 fncXv4KCqxufZ1VIEevj9T RyvmOwnhkYrdx7SafMBnFE qrBBEmEJBpUYnxJJHnNZ0H BiViBPeYAwoaUByiYdD2GV l9HGTBQbAdZiShSfalUIO3 YgCuFYs6BRn6OQmRTdB2EX Z8BAYnUzQuLBFnKxwnOMu9 IDIgXFxmIEFyaWFsIFxcZm mjDMvcH55zVfNuTqfteOHu axQOHfAOu1d3wEicR12vu8 1mVKBMewIbn5SbojBxJwqq PQIxSOhoGXXqZ65ck1DTu9 KrIR4ROWn6usUkcxcujC2y YQAkruTcYYbdqTAtP7czP0 DmAVIiTzElGaQlEZo3EQFr cE3gWh8ihTAndN1wuBOaTV wxSKJ5vKHcBEXxBVEnOMKw KP84QCyCBLJcqfApPQyjqO VkaWNhbCByZWNvcmQgbnVt YmVyIGFuZCBcdTgyMjAgXC k9Y4KxwTyaBYQtu6skgg58 hxZor4JrrhLpCJSgqDGoOP 7eYzsvxW64NPVdJXHuZPFy lFmbIAabBnHjblOcQ09oc4 izxAOxl0ZwiGFhnCidsLNk dGFuLXBpbmssIHBlZHVuY3 BbBJWdHEKee4R8KVOqn3Q0 TQEhKn0qVCtvBi1dHUqoSS 27ANQdWPltKEHmY3RfP1M3 UUjgTYATyAPoc0AjB2rsOE 6lzXFfm7QsiEi9eSNjOTel SNQseL1bhS1qGNCwCGTdWI CyiwEOIrmnKCEoVCbQz1Ji qQabHHBgT3t7x01gT1vijS SkKGDPLVJ9oNUftdXyvRCd AY8XYBNiwlIQNkhdLiZbQu MyMiANClxwbGFpblxlcGlj TfLoyQUnOiVrxZttfD07EU SzlHHpEKO6EE9eOIZlzryl RMKvEXRkLDK0PDpxhC73tU DwQYYiVEVqyZUftS7JJNVz ILW9JFajyD24cDKnAQ5FMP ZwPPR7NWBgvMUqOKD6SZ5l fQ0KfQ== MICROSCOPIC DESCRIPTION l4rhgRHgLUVjpIF9GjXiFZ (test code = 3371) Oux4jme0KvcRZbrRDhMGwe mONfzoWbgg87yAL3aD58BY 8zHNKcCqE7IPHhojD4Cda6 VOCoOJLemRDoG968g6vzo4 raxmBwdDY0lOcbAMBcaojy XtE2QXxdODFexgslPYd7VD vqZHTivRL4HTDwkTKrG3Ok TJLdFK0emgt4YYX9ZYouCK AhHpL9NSYpuIAnVGWrnVje MIpfo170PAC2VtFeVIRwyk XloQazkM6lRqJpOOCMEABl v9ZmMNByDSTuueboYLFiGC Bhcn0= [facility] CenterTissue [id number] 09:50:09 Test Item Value Reference Range Interpretation Comments Case Report (test code Surgical Pathology = 104) Report Case: [id number] Authorizing Provider: Angela Loco Collected: 07/03/2021 03:04 PM MD Brian Ordering Location: [address] Received: 07/06/2021 09:08 AM Service Pathologist: [...] clip x 1 DIAGNOSIS (test code = [id number] 3220) FuZzEwMzNcZnRuYmpcdWMx IHtccnRmMVxlcGljOTYwMV pzelEvVNKftSOaL2Vwaruq JBjuWO9eGQ6hmYnrlFZllD IfUFLcGdBlj9fvr225nGPh t0sdBZBSuajgwQu7oQvnQ5 0be9O7LbvdM74zeZLmIQJ3 HWOvKEZovBXgKSRvCVZ9AZ AicDJpN6dlWUOeUS7bbjfm XYrbAOpiSSBgsQP4VMPqiX VuL3FgWLAvTEttYSQuzki8 WwAnZo8uiHGglHgzEVgyVT QiWLWmUPnbWTXdXzHhBD2j N25MQ37tBERXE0MVFKBODG rQQIRMLT2RY5c1RFMefzZu LSAgVFVCVUxBUiBBREVOT0 5TRHQsejjvNKStDt7oM73U W46dGDMLH8uRK3WCT4OZNA vVIgHIE9wEAYthZoyHXNYN LmosWTXaID8rLH8OMSWOVH eZVJEEYIrAQP4IVsZLWxXN PVNJOQZBXMZLYX3UCKErqC FyICAtICBORUdBVElWRSBG L5OxBFwPQU5BDeOJMVQWVL FPTBMOGJAxX0WzDJDLOHrB BF2KFDcpIVVkzBCkMYXyCI WXLA9AYOGNLJzEQT0CQ7ZN JaSNQacmUF3QKWFbHNMPO3 BTWTpccGFyICAtICBNVUxU SVBMRSBGUkFHTUVOVFMgT0 VpLUGVWGcWJwROTCZHT10R XHBhciAgLSAgTkVHQVRJVk YkHx0JDTsKK1geS1JOMMHz EMeVMWfMM2dMXV1SBA1ELZ uRXwQCH8cbtUMxMJVjkjMx jOMyVHCoEMVQUQ1LBJBDYh CKL4PBNcJKDFMFFAdKHPUL XS1UQ4d8VSMvrgItJAOkFF VFTNwBXFQlPvAGY15LCtZW XT5VBTEGBwARTTIkBWGVDa 7WGYpwCZOfMQ4aHY3HN8XI SVZFIEZPUiBISUdILUdSQU LNAXWGG3DZCMVYLBFUEgAY UJrIM60KYmPWAXCalu95CG Q2QpLhh6V3MVP8LUNnWOMg x6ixRWKonSUbDoYfZmRtJb AzGjsqyHZnMCBoGgUku2pn a970wZNss3srWZDnEyG9eQ FwEBZtzGBnJ699DWKnKEnx s9pmx1SrDUMfkAVih3W8OJ BKenmzxFd4rPttJ56qx0Y0 DndaJ2hwSQChIMPeJ4XgQJ 1tWEPwJso4OHZ5YGV5QWPc LHBdV2VqLU5nMPXneRHbGV h9x9ccpTyjEEOuVQM2a7yh EAuempBeAY5lgs4leRw6h5 xjczEgRGVmYXVsdCBQYXJh V3AoiEcvTf2snRw7yFylMb ijKDO5Lmv8SE1aln66tqk9 jCajDWRsjjinUnJ7SBmyKG UxtshwWBj5NRzcRSMhsBS8 PGPdfPSqZ0ZcVJGaUX9enn y6XWH7SWpkINQrYiT9RFNc wIIbBFMgaMdyUImir285JD A8BiXoKB2fD2Zym5P0cS4h aXRcZGVmdGFiNzIwXGZvcm 9yrNEzADoll9PeOTG4ejH1 oCLeuTSdUCEeUsF4ZWqtMC 9ajw78OMVsPMD6ne7icFIg aFginkHvwVBrRClhZ7WgED Fci069DEUbT8EjXJEge6Z1 qlLvNhAiVZKimAT9tnA4SI ZtOR4grqvao7brWHtvXRct CDNratF0deD0IEUmgWKzP1 EykQ6oVNQdDD0drzyvk6jh EBZ1RBvaFABhWOV3IpGmKS Fhv2Soghy0SgAjt3CqiQDa CByzD84dl150KUCaeoTyH7 xwbGFpblxwbGFpblxmMFxm htW5FIZvUDlwpuijGABtZO lkS6coWqXvRVXedBibZGin d5AaSIMqMEWyFfYivEYoWD FsBkh2SVNvyXMrZRKrJvUk G1qqxodeBoUABUTxc2nbR8 zccBPHaLDyP9IeGQvrpeRy TGcjFIdsLDVhMBO6PL9sTK FzFFEjlm36 CPT Code(s) (test code p3owpUEmTTBszDO1AzGaKV = 3357) Ygg7dfg8TjiOBzjFLkYYxj aLLljvClzd29dYR7fS23YT 8xOIEcRnF6HLBdleT0Mel9 IUAeKNEojQHmJ525c0qbc4 jpmzSylZM0qMdnYOKsfdex EvK4XJjxBXHlrljbHTv6JZ obRZZarHP3FKDhwKNeO9Jh FUCaZB7arcr5NUM5RXliMJ YdZdI1LHFqvSBsWWCbjWzb NXham388UCI4TuLgOGLfea LrgSozpJ8qWcOiMQS1JTWm ZSl5GCQska5= CLINICAL HISTORY (test z1ynkBKzNGKwbZY2HdFsYO code = 3356) Off2bgn8RkaZJreGEmNXgm iSWwzfDwzs10gQQ9iU19BB 3pVKXdLyZ1YVBvsrN0Nri9 KAHyXYNasFLkO491b0zrv7 lymvKprEK7NIOvJZWtE6Sp UX9xYKTmtPJbL78reZInEN M9RFNvUWBqvSKtUBAqGFG7 LXJtdHHqR5cgJJLrDY2vwx siCZsdWBcnHVKneUS9QZVw qZReE4CzTVNoJBauSBTsau m7VeKiSb5tuXXhlBvhIBzm YXJkXHJpMVxwbGFpblxmcz UmWAFuHDRZpw2mJLKlMlrc eCUgA1myHU3roAdwGZA8uf UuAKAnMtezYUQdol2hKIUg OcdfvXUpS3kjYT0akLfxSD C3xELlAPUsis1= GROSS DESCRIPTION (test g3rplGIaBWWoiJSXEPTmPp code = 2430906673) feebEhDEPxkIHhB6Udlzne UMdvVR4gYT8sdAjfmSJveL BbXK7QPEItJkCeALEpgVQh ywWwUsEeZPDolZAgvEL1SK KlKL6rxtzaBGtpELmmAMBe dvU2STCyeFUqW4IeKZFoDP 9kvodwEPE1CZexbV6aeaGJ CbkzRh2vyCRwjMjlPzAvDn NoYXJzZXQwXGZuaWwgQXJp GHf3zV7PYorzU43sy2Q9Dw b1PKUiYMQxP3EyQM4bCQTw fCRxB06REfjsBHK2QPEQMl bkYGScNL4Fs0fyECBmnUDg TGS5SGbdqACpEHNaQEVhTM s8ONKcKOlshEGpIU0jtPqj AycejBkkr5KbpFPjPMckCV MeQLFgEBpyANZiMR6DBqXm SIyIDvypQMwtCwV5YMi8ZN JYRkEbErMfUqwrAZX9XXui KEq8NTi0QYuCQfN3PRT7WW YeXVaqEUKcUwncWEa9ANWm XFxmIEFyaWFsIFxcZmwgXF qkH72woCgvqJ0kSJ1nHW8h jBIyPVNvoO6xDH9iO8XilJ 0uXHBhciANClxlcGljTmVz dERvYzEgDQpcbHRycGFyXG xpbjBccmluMCANClxsdHJj aFxjZjFcZnMyMCBSZWNlaX SjSUDnzyJrq8IgVZfowdPw YWJlbGVkIHdpdGggdGhlIH IwuMtwygKzQ9N4chVnAS7h OQDaQODrT6UxLEBbK03jLC DsxL0hTKYlLH9vXOl4QFHu TZYbSiyeiS2dcNXaRVXvmB 5kUGKpN0PvTrJyu25amGC4 azBfJsLgHAMqxo2ikA0vDL Zplw4gWLHnq9Y8WYDcn9W2 XYHhHS03BVtfYK3aDMoyKO 4xIGNtLCAwLjYgeCAwLjMg yRDrCjFbS46zZvFhQTnhKC UyTESeiIOqXLkhMTC5Kr2l oIFxSYKkgrY4f8HuUTzgJD LsYyglBWDqHFopoYDvZX2P OFPuVVxzvkYhLT3JRYShXJ nwUKNqwBSTEVN0SO3hYMpz nOUxheanWNKcM9RlJ2Kchf ItqMRvAVIrqhPag8ifONK9 XHNsbXVsdDBcZnMxNlxwYX M4YLq2DIigMEUsG4IkB7Fk CIlxAJJ6BOCuFqNvIHMzBB FTCtPcYtPzWtI9Lou7UtAi GPa7WNfxU3VVFXNnETC2MQ M3GLL5SgG8WWy9BJLYNr7f XOOiUMS4IfH9WGT7DaD8WM xcdCAyIFxcZiBBcmlhbCBc DTNzPGmubvS3ATShUIOkfB bhaJ9dBa3iZT5veNOkNXWu kM6pKN2nMdzbnRQmOWVyYU 5ecE9bIawoJQNmFKbdEJGt D82uc9DEn4RnSC5EPRm9ny CykglrzV9lVTPexwWgIOsw fOUmR8waL2VvASUtRpAvPq XbLLu2MLAvgV7xBh1keVVt wO0wmBHmEKbjPOQ3pCOrIA XdDDSvLGHdVH84IDaGIQUr bmFtZSwgbWVkaWNhbCByZW NvcmQgbnVtYmVyIGFuZCBc tQjeAcSxJIh5Y7IudBpfDN Gxr2yebh6dgNgraDVlv1Aa vnYqopuaLMEwNTRkr20awO Z3wuGzMeVxcIf7gUXnUIR1 NH2lfSugjwyhsOZsITf8gE ReCSKjNmAjvTmpb7GqJOqi LjQgeCAyLjEgeCAwLjQgY2 3mdZ7vAPvttnTlKSFpZK5u PEXnLAVaaYKbtU5xhzWhhg IalTPtuBN7PDAtzS2fcT38 xaUsytZEPZ8ghWLcRQ6EVA BhciANClxjZjBcZnMyMiAN ClxwbGFpblxlcGljTmVzdE ReTbUurAclxA43SXJrnTVa KOT2ZU8jULVajgxvNBBtCU StUAU3RNnjnY04jHOlJUUp XFPojSYwsN7Zb2meTFIioN FgUOW0LKsgjOJfCQEeQVDn MUwdNgEcK4LJGZPeYfRwVY K6MEWxGUk6PAy9EU9TDeUq NFWlKOXzOmR5MXJyJDh4KH juXE5JLMB6Gba1QDM9ACV7 NTMyOCBcXHQgMiBcXGYgQX ZkDUliLMcygSTsVL9xnYlu gcU3SLGmINxlXMKpUNJgdG meWYDHp4cbbnWwEIHtS0a0 N2NeB5GpVXfxLn6cmMJiWV 2USHQcfGWPOXD8IQ4cHBIW ClxsdHJwYXJcbGluMFxyaW 8xEN5ELVw0cqDeNENgTBfc krItNNOwQ4OtmtRqDDarSL Yzmn7iiAbcACgwUpSgSZBi q1w3hOE5pIKawLW0dYUhnO dvQlKgIF8pvUDbAY9bYBpy KWqajxHqn4XnXI78cHDigo VkuhCyIER0TwQgLLmuPXVg b5e5fLxpN47sl42vowmntX QuEKLzHS4hdN9xIfBrczBk U77cg0vnhBRri6VadUYyiG lwbGUgdGFuLXBpbmssIHBl JEJpS6VkOYTrIYBco1X4EA Cni1I4SDXrQt43XBujDb2t JAirHL67SZBkRRgxFJGeI5 RxA2I8WQecNOJZwDYrf4Ap K5geLN7kxGXsb4ChuKk8mB QtAAzdLEXjjP6pvF7cIvQj XHBhciANClxwYXIgDQpcY2 PcNFVuEiLzWEkoaIejsR8a JDVxA23jh1FUa9QkXVUpMH ssq3fiiFtpc0DcpDLkQVcu NIIahAZnMCfusC5nLvLxe0 balXq8VZajzoJ3RYGzji2S OhdiGnupwZgvj3VfpECdPR qsMGThRBHaUZyuWVZhIO1Z JxUnQKmBFiioOUoiZhF1HC i5FHJHNrBqPmAtIrpvELI4 ZiCaACi5JGu8JNqGNjB0SS C2OPOvMpCoCLYsPghbIVw2 IDIgXFxmIEFyaWFsIFxcZm llPNejI77mKlQsWcixxAFb jyKTEaSKt1o7aRhyH40oh3 7jSNFOcyJvj6EgmiRyCfrl ZZSiSDmzLLEiE80bi0MHy6 FhPA0RVGk4noUqpqfxhA7q VFDfroKpAYynyMUwN4vpH6 JfFFHwYzYgEvFzLHs3XCZn vM5sNu1fyVCbgR1nbFKiVA ndCGS3kQLmZWBxWIRbNWDo PL45WNjZHDBnivCfRIjfxM VkaWNhbCByZWNvcmQgbnVt YmVyIGFuZCBcdTgyMjAgXC x1Q4CgcBncMKBph8xpqc15 dvMpp3ItvaIlJASyqBPmWE 5xNoprsX29AUGxNHLmHREy sGrbXMcgUiFgpoNwM10nk3 axrNPhy3AtaWUcdTqbyKYk dGFuLXBpbmssIHBlZHVuY3 PoKIFxMGDrr1C7LUKiy7Q5 QLMkSd6tRFszIq7sUClfSQ 54XUSvDFdhZILiD4TmK0K1 EOtyNRMMtMOlu4MmO1jrZY 4clQFcr2HuaTn7tXMrQFmd JMHrkP7inW0fUYTuSQJtOR CjmoOYVamdEYTvNObWv4Mh pCplSYZzH6z8g48jP1skdT ZdLWWXJSX8sRTppaZtrZLd JK8WTFYvjiEHRjjcOvEqDg MyMiANClxwbGFpblxlcGlj NjZmoCYmJbRoeGuxsX42VE MciKWuHZE9XV8dTLMnjxpy HWTrKSPxNEB0KOidjX74jX IyVDAeGLVozKNpmT9CEERd HMA8DIlwwM00bVGnOI0VJP ScNPU9UVLmvGCbYAN0EP2m fQ0KfQ== MICROSCOPIC DESCRIPTION i5ntiPTfQADjyLN4LfMvOK (test code = 3371) Pui2mot2JfkDRtlOHbHStg uKZgjbWjao89eMB6bH02WR 1aORHmBzX8OWUtdjT9Zzl7 GKZwMZEnoGEuY877g1awi5 hxreIjqCW7dHnqJFJytuhc KaL8UZmvESUfxfdvBFx9NT ysLIMljCH6SASvdIBoS8Yw UQRaZS1akig0ADK5EAilJT XdUaI4UVCfkMGrGQWkxRsa OLyly396INR5SxRrRSAahd DdfKtxbQ7lVjVnJUOUEBMj r1AxQZNwDACjcvmhZAHlJI Bhcn0= [facility] CenterTise [id number] 09:50:09 Test Item Value Reference Range Interpretation Comments Case Report (test code Surgical Pathology = 104) Report Case: [id number] Authorizing Provider: Beronica Mayohomar Collected: 07/03/2021 03:04 PM MD Brian Ordering Location: [address] Received: 07/06/2021 09:08 AM Service Pathologist: [...] clip x 1 DIAGNOSIS (test code = [id number] 3220) FuZzEwMzNcZnRuYmpcdWMx IHtccnRmMVxlcGljOTYwMV flrwFsWRNllRNkC3Uhrizt NIleAR0fOA6gwAdghEOofY OcNUDlZnYsu5yes031cUVw q8iqKKSVoqdosIv7eUmaE8 6vz7A3CzkqL44yoCIfPWH3 MWDlJYHqyKNxVJIgJFY7UG AeeEOhR3deFQBxYN8tdsol TQalWGmpVPLjyAP9GQJfmJ BkJ8SpJAFdAIaqQATzbrq8 FtFxCk4bkRIctZsbPEprCR ElCNNpFAojISJvHqHwRN4i E93EF75oONHNO4FJODAYHN aKBNKBJK3SB2a2RAWjtiJl LSAgVFVCVUxBUiBBREVOT0 3QZXAowzplLHUrDz4oK68S V37uRUGCD4fOX4MEX7OTYA aSBoCTJ2xRZOgiBubZTSKM KjkzKXMvPV3gNO4SLTJPLR pKSNWABXoYWO5QSdGIFkAJ AHKJRECMSPDEOX5TUGLfsB FyICAtICBORUdBVElWRSBG G9DhTNsFTX2DWvOGNCEQWQ QDXTMWVFBtN4KkZYCJSReC GL2UCQyaGEKkdVOgRRMuUI TJMF7RGHGRUEqQWK8HC8LJ IuMEAdazCX0KBFXkGBHDI9 BTWTpccGFyICAtICBNVUxU SVBMRSBGUkFHTUVOVFMgT0 AhPTQTCHzRAyBJZZBDW77J XHBhciAgLSAgTkVHQVRJVk PbGk9BYSlKL6mtV3WSONBu XUiRBEtKB3rRJJ2XBW6DLZ cYQpCNA3tkrRSfAFKvajUk uJYySAXxNVKQHD8QELMWBe DZM5IPVqGIYLTPOExYXZHG SA2IA9e3QZJeciGgZFWuQN EBLNbBSZXrSxFNR10VXvLI DV3KRKCXEjGRBOMmZASUMf 6EEGkvHAUqSB8gJY7OA1BE SVZFIEZPUiBISUdILUdSQU IHXSGLC7STZFFKVPIAWrFJ BSnOZ71PBhCPJUBdbt52QP B8KyRht1W4IPS0DXIvIHCe n4vjAHNciFGvGbFrLmVuTw SxQebluAWuAYTbOsVns9lj h871sIHol9llMPZqHkO9eZ YtOIZeeJDiY691VGTlJJon e8cel3MnXFRvwLPns1A0WJ LBgkavqHr2dSjgU79zc1E0 NdzfJ6djMFGsTKCbN8QnHA 3uWHPyVpa0OZE0MYW6XQIz WGWpQ1EvUQ5yZGTscLLnBV t0l1yorPflWCGgWAC6m1wm ODmjnvZbUJ9hew9rvMd2u9 xjczEgRGVmYXVsdCBQYXJh Q5CjfYkjQd1okBe5yJiuFb nnNRV5Nov1TI3wrz62itr2 dIbdYZRardbrWqP6FBtaOL UdndotSDk7MKsnTULjdKH1 JPQgbIYcV6RjLFObXF5one g6NUM4USmmJBAjEbH9CSGe kUQmBLQjnWemQTlcu107TJ U9NrWeYF9lB0Maq6W7bA3f aXRcZGVmdGFiNzIwXGZvcm 3zdJZlIMwht7SsPNI7voJ1 kPPwiVYpNQReMoN2RDfdKH 5ucc64LMAmZUV8ma1uxBIg iIsmstVkfLHlXZyuT7OjJL Gud797RKIfI5ZwBFIzd8I7 icYoYiYzYLBgrID1pcY9ZK TcEH5hapyeh9fmSUyxLNsx SABsbrE6ymX0SORioJFtE3 MddJ2rPYDiGC2oxoepv2kl TJW1TRlrWAMtBMQ6DeTgYX Zok9Cpnui0UmVyh0DiaHQj EHonT27yi002CEDhgzJzZ8 xwbGFpblxwbGFpblxmMFxm sgG3NNJrVBdzsizvSWCzRO kjW1rdLgTqASBoaWdlGYfm j9UuFNRjQZOiZeYslYVxJU YvBpv2DDTwsAAuAKDdWvXo P9mmkztkWlZZGRCnt6qgC6 sewJNEhYVfG3YhCUzagtKh YTpyRGciAYRpAFN5QN2wJL JfGBUuyb73 CPT Code(s) (test code n2garOBpLCUgcIO0DcMnCH = 9078) Vsh5vgq1VsuJOvpKOrRCyn hVPbrpHzru33xTQ8pT80PO 2uFOYoErG0NSBmcbM3Yuj7 GEEwQQKcdPDpV969c8pjz3 gyifEetBI4wTczEMDnznnf KpL5ACzaZOJqxorqDAu7SR byDFMoiHE3TIVjqBBjY1Ya RUAxXM3hnov1UTL3OTxdXV MkBiW7HDRgxNEoLVGddVzh KWyfi833ZSW8JuVxRDEjqm QnlNmpsH8aQvPaHUD3TFWe SRc1IETkhb3= CLINICAL HISTORY (test t8sjdYKgBUYebQN4JfWtXQ code = 3356) Vho5wtl2RfnQYowSOiXUez eWNsqrZpvf62kDQ1xP33ZC 6gPKIgGcM3YSOlisG3Jxc2 VDBaDQRvtLRrS527n5yci8 admqNgqWN6IEEpBQTaJ6Am EO3eHPPywQJzH58ktCNxXS N6KQQnUBAreVKoMHSzAET7 RVRmmFWxK5gmCOEyOA9lcz ckNDfrTRbwZKOmzEL1SVRd sOHxQ7CfGPKmYKzhCWLfcz i4YxRoOt0miWMgaXutAQfa YXJkXHJpMVxwbGFpblxmcz PzQHUiRFAGpg7eUSHeVfah oRHzZ0xbFA2scHkaHSL8px YqEGPgTvpmCJDiff8aXTDd LxxrvQOqG1wuWS8zhJvcUA P5qRTyLHLwuy1= GROSS DESCRIPTION (test e1yzbKHzVDZjeMZBVZHeKf code = [id number]) ldgkHvIBPevDXuA7Igpjro LGopVQ4tCZ6cyWzbqLOgvX MgXZ9VOKZoRqYnEZNxwBXa ucObEoKkOPYuoMHddMS0SJ OqFB5dfdziEOiyDKhnGBFf dfI1RAKuaHJaA1VzUYGdKN 2yymioXXG2INzctL2bpqXR AgarJg3zhWLbhSqiDxEmGq NoYXJzZXQwXGZuaWwgQXJp DCw2rU1NXdosV52fz0L9Ym o3AXPuPMFfZ3UcBO9qMDFa pJFzG58BFdtiCWP8PDRRPq ybQWIzGH9Sb9mtZPSklZXd ILG6YJooxHQnHRKiWZRrWZ v4IBSsAJwgoNGkJW4tiZeu GomvtSmkj4EfvIQmBIarCO NiJKZtKIrwXEHnYN0XPfFh MYyNKxphWBcyYwX3TAj4DV JHPzAxCxTqFaduKKG2FIku DXi7XLo7DSkBYuD1LDE5OM JsJAgfZTBpWhueKKx8XXAb XFxmIEFyaWFsIFxcZmwgXF ajO59akGhhqZ0kKN1aVQ1h eBReRDRoqC4gHB9lC9TytF 0uXHBhciANClxlcGljTmVz dERvYzEgDQpcbHRycGFyXG xpbjBccmluMCANClxsdHJj aFxjZjFcZnMyMCBSZWNlaX PfHNIifdHkm2WbYWsjojNd YWJlbGVkIHdpdGggdGhlIH VowHtyddGvB3V0wkTpXH8z RMWwWHVtB4XlEMPtO27dTP YtqC6hVQOkTE3qDVh9CSAj NAYzBebglV1bkXXnMFSoeD 5kGLEyW3ZtDbXmd63loPY0 ipAuThAtJWPfyk3dxH4mKB Dwkv2lXDCma5I1EHSgn3I1 MURuXN82OQyiXT5pZGpbFL 4xIGNtLCAwLjYgeCAwLjMg pDKzLgIdK36jHsCqZOrgCA ZjISIwkECcJKgrOCT3Ot6y qXOjJYYmtnW3b9RtDIneLC BwRpniHXQnZWrdfYBhPD7Q NRKuRUglkgCcTP6YLGUlSQ yuZAVqeVUFKLB9XR6xAZly kWAdhdjlYPJwR9BoZ4Vcms SkrCIfLNPoegJvl3nkQCZ1 XHNsbXVsdDBcZnMxNlxwYX B9TEt7SJdyDMUdF6QcE5Gg QAlyNVW7AFGuUxWfIHHqTG BUFrUgGmUcJhP8Mus3GpDn ZBu0XNqjW3WIAGQyBLE5IP F1LYW2QtS6VFo6CYLZFr4h MOYfNBV5CnE4FDF0LdX7TF xcdCAyIFxcZiBBcmlhbCBc SBKwNBlbfdC0FCBnVIDixV clcU8rQi3eTT4kkAZoDNUi bK5nRR7pJncgvMVnRDTjZY 9cxJ4qYdgzWXKcTUonHGHr U43hz9AOv9QlER6ZXVd2qa HovixzcO1zAUJcusKeJFzz uQNpL8nfG1XjARFfBeMeDc DnAWp8QTHbjC7sKg7tzRBq aB3ifUBtETbaUVL3oTGhSS TgHPNtMPOySG45JLgDJFNg bmFtZSwgbWVkaWNhbCByZW NvcmQgbnVtYmVyIGFuZCBc nItxJtMlOJx7K1PeiJgpXB Xmu3ghmp0itIgdkOFll4Of joTybbsvPMQpTDDal86dbQ H1qzAmDoIpiGo0qPWeWDI3 DY6xoHqqclittVZdNRx4eR AwAPKgToKyxLqjs2MrHBtd LjQgeCAyLjEgeCAwLjQgY2 1exD1xZDodpkXuQNOjVD9r MPChPSCabSIetL0mjkYxrf KubVViuDZ1CLAeqN4npB11 hiGmulWIUO1ixFShTE6JBC BhciANClxjZjBcZnMyMiAN ClxwbGFpblxlcGljTmVzdE TdLrUbuFoqlW61ORDlnOKx WFE5MF2uKHWtpvivAOIhHU YiHQE0MKidxJ30oRQuJEWt CIRtbDNqoE3Gf2jxPJUouY OfAAV2HZnecXJsJXHlGTPz ICbvTyVqN0TKNPJfSaXrHJ P5VYBzDKc7OYb7PQ6SDdWq CGTpTKQdXwM1NWTjMHc0HK viLZ9EANA0Bmr0EWJ9ZKR7 NTMyOCBcXHQgMiBcXGYgQX VyFLyfAVwyhPGvLT4klOcd cxZ3JDNcIYzjQCToXFCngM ttUABYw8bgvgEcORYdD7n2 I4WpH3TyRUvuSh1ohEUeAD 8HMEVquYNFYGO1AT6zBEHU ClxsdHJwYXJcbGluMFxyaW 8xXF8TVMx4nvKdBZSqNKyt czCsSXOdW1QdnxEeJRlsIF Ushu8upMkiVYgyHxHpBQXs n0y4jWF7sLSemEJ8lWNasT azFvLhPX7jcQNvUS9fJGbj GXpjwxNpg0AsFE71yNEczg RgzhOaEFO3RbRcJCjvVNKb j8e3bTbaB68cf76fkazljU CrOTCqGB1tnD3mGhKmitVb K46nf9ftuVBtq1EiwKKdzV lwbGUgdGFuLXBpbmssIHBl ODVqJ7GgRMCsWNHpg9U7WD Lty6T6QIGlNm54ORyjEi3p FOulIV99LZTiYMpiSMRyO4 FiV8G3DYsdYGEHyARlp7Lv X4ypSZ2teIFhc9BkbHg5hK ZxHBvaNLPssU3iuK7jOkQo XHBhciANClxwYXIgDQpcY2 PiIWClRdCxJCfpxTnavQ2d JLDnC29zy0KFd9QnYVNcIG rrn7hnfSymc9NfgJCrSCye ANCkyUOoWBtedG3xJwXpc5 xidEl5CThefyK5ABAhze6U QxsxCafzsKafa6HbcUVgBO jdVKUwOUJkDHeiNAPjYT8C DpBkEJnZGeyuQRrgZtT4JI i6BXOXAhNsDkZpPidsDMP9 MmJxTXb7SFw8UGvEGaB2YL W7HAYaTeRtGSAoXudnVEr5 IDIgXFxmIEFyaWFsIFxcZm oxGLqhG86sYiQsMgiagNPj jwUKIzUAg5r6cCwrL13zy2 6yMDMFwjAno7DfzvPiYnff VDCyZTtuLJFgL74sx7IRs4 EiQH5WRHh4nbAlkrwvtA2l ZCFkekMxTQjtuSOmJ4meT3 KcIENeDoSqMgVePDq2LKWg fM5nXk5kuSCulN0vtVXpEX xwSHW2sFOiAJPwJHYaHDWt KX58KImDNFQgmtWxNZqewP VkaWNhbCByZWNvcmQgbnVt YmVyIGFuZCBcdTgyMjAgXC w9H6JkhEgfVCWjb1wyze65 qxZws6WrsmVpCEPljNGtNX 4lCvigaD58JKZwYKWwPXBz kTxxOLgkEoDuemYaQ78wx6 vfrPJnd1XwnNNnmEcnyAQi dGFuLXBpbmssIHBlZHVuY3 NsGISjUVFwi8T2NNHxt7W5 BFXwQs1cSZrvBm9bVCbwOJ 64QNPiBMzcIZFoK7GcC6I4 IHqdLRCPrMBkr4XjG5srIX 5vjEPdt4SysJz3pDUvFNei GXJphO1mpZ8jSVPhXFQfXU JwqgJEEvdkLHJjIDbYx7Nq nHegWBSmW8y0p85dQ7jneM FmVHCZUWJ0aVYvcyOsrQPg AS6WVJYctgYVJukpKvJrIy MyMiANClxwbGFpblxlcGlj IqYhjUWlLuSehBftqO95IT TpiOGcDJD2CD9aEOMoytxj EKEuYJVcNZR3YPawiE39hV BhEOIoHZYbbREueB5GTXNn RZR9EYgdrU36sOOeGT0ACD TrJWO6JPDidGDpUWC0MS1e fQ0KfQ== MICROSCOPIC DESCRIPTION z4itoEYdUVNbfMA1BcMiKW (test code = 3371) Llu4pmv2HroXSsaGXkFJfl uYSsdkJdto08eIH1jA16QE 3iMTGiUeV6ZOAyvfR6Dfu4 KBAdJEBnwXCwL275l4bck9 fffuQedNT7eQmgRQQsedig FxM5EVggQEEpbdloMQy5YG daHAZqlBZ5YUOyiDKgF5Ck OVZeBY0kuuc6HYV4KRqwNP ItEzU7IIZnfAZoGSFncVpo RKdzh570HRQ7EnEjAYBmhe KwvMpjzU6yGxNsHPEESIGl w9HwCTEwNORzftfnXXLeDJ Bhcn0= [facility] [id number] 09:50:09 Test Item Value Reference Range Interpretation Comments Case Report (test code Surgical Pathology = 104) Report Case: [id number] Authorizing Provider: Angela Loco Collected: 07/03/2021 03:04 PM MD Brian Ordering Location: [address] Received: 07/06/2021 09:08 AM Service Pathologist: [...] clip x 1 DIAGNOSIS (test code = [id number]) FuZzEwMzNcZnRuYmpcdWMx IHtccnRmMVxlcGljOTYwMV jrhfWcUFKasWFlI1Xlumvk DVeaFH8gSZ6ezOclbWFmbU MxTRIkLxVpo0uxo859tQEj l6enVQHFuegfwDv1yOfcP8 0fc3D8MgdcX44buQJqOKA0 QNEnJESmmSHqQEFeUAL7AA GqxDIfJ4xlAWXkBV6yoyqn SOdeUShdKGWzoBH6QOQcgG SpP1QlHFOjJMzyBTLmnhn6 YdZbFb2vbGNqzOaqTJfiGI OyEMYoQPnqHGQaVhLhYT4y Q85VX74cUIWLL4LIKVGDLP yDLEVZLS9DQ2d4SWXfimHl LSAgVFVCVUxBUiBBREVOT0 3PTIGzadmrGPBvMh6pX46G J12kIANIZ4hBT2LRS5CLXD wBBtCAQ5vURGbiXvfWZMIW DxzvWJDyIK5qQE7DVKJASJ uTSSIYUShEZM2KUsWAByOK GLCWHNEITRARDE2QBMFwvT FyICAtICBORUdBVElWRSBG G4JvURwOXU4CGpTKSQPPCJ GDNCULBIRaZ5QuPRCJSEzB JH5VTNcuTDMugYWmNPHzOM WDYT7VTTBQULhIPV4VE8RO BjQJBifzGT1LCFWsZNIQS7 BTWTpccGFyICAtICBNVUxU SVBMRSBGUkFHTUVOVFMgT0 MfXSUMTAoNDrTFTEGEV92Q XHBhciAgLSAgTkVHQVRJVk WoDs3YVNmRS3wjX9CAFHOp OMrPQEtEV2zVJA8FZJ1BQQ eWSbRXL1ptbDObHLVcvlSw eZPaWQJyFSEPSK3TWKUFJi BNC4USNfHDJOBDYEqVTJCT CS2BL5q0IMYhnfWtKADfTP GUALmPALThIdBIE29PZeHM QU5ANCCBCbFVFPOwOFKWJi 1JBPotLZSzSH9xNO1AY9BH SVZFIEZPUiBISUdILUdSQU KVVSAQQ1RMNBCJPNXVHnZZ NYjJI61XSgNWGIDfyu15KD J7OmMms6S0IAM9HQVeTTFw z3trFANnzPAlVeJfUsHxCb RqZogjoEKlHTKgGgAle1nz t951kGLkr7uuZKMcMiB2qH TqHGWrdHDfT738JSOoYCth n3xir1OvQDFttYCka6F5CU MRpbeygWc0gKiiU94os7D9 AttbH8rlEJHuKXNaE0NeWY 3kSDRqLjn5QNE6FZH4OJHr USAdM8LdQO2zOBQgdLMhGV k0w2jeeWufRGZfUAJ1r2rf BTnxtiKxBU4sql9qfEs0p1 xjczEgRGVmYXVsdCBQYXJh Z8YvsMjeCd0xuXe4gUseWq nxSRB7Sik4LA2qum18zcm7 dJkhZAZcypsjQvP9KJzsEW GdajztOIv4TGmsOULjxZU9 RQYmsSLaP7OfTBYaIG2gsh e1PZG1NBlrIOVoCwC4FSUf aAVyJBPypVsmRUcsu027SG X2UtBkUF1sO8Swx3T3aU0g aXRcZGVmdGFiNzIwXGZvcm 7cpWNlPKgkw7GqITS9vzB3 jVAomRMyKIThSeQ3ECsiQA 9pec01GEPwWYO3ra8ckEYn oYgovkIfeITlPTbkR7WgVS Bza607EVBuB5MaKHEim3U4 ytIcCkGmQGNsrBY4xhF4FJ GkUA6cttkxv8nxXKboSAmt CAXlueF1jdD1UVWfpTFoB8 TqtV9tSREvGR9zvurgl7qr ECW3YFadQTSjHCP3RuHmDX Cwt3Xiafi7QkYqe1LblQGr AJjsA09du416FWGdznOuR2 xwbGFpblxwbGFpblxmMFxm npF4TBPdVCoedsdhKPMvDC fhY1nvMuDzTUOasYbqDWmq d9VdOCNeZVQvKeQzxIDsWT MvAjy4DLAlsPQsHETpKyMc E2sjwmppWfXFMHDsi4pyV3 ygaFEFtGMhU3ZhZJgsypMl EZapESykYVBwXDO4BQ7gJU YuTSSqms20 CPT Code(s) (test code a3xnzOFrCQXacEZ8VbYoXH = 3357) Jcq4xqw4JnyDWegYKkFXsi bSVkokLmxc54oQC9nP22AQ 2rPJAdHjH9KKZlthW9Rcl8 WCZuRCJzfYLqN786k0ctq0 yxtaZsdMO0vEnjXUDrhljn GcA4GCmpUQTaaiuqDVw8TR krFETqzIB7DHUhjGJsA6Qa EDZfWQ0ebqf3ZUM0LHqdBK XhSxE8MHPdwIRmJNSfjVpa FCvvn174JIN3XgBbTPGkxn GqwMojyU4iGqZyKIC0UOKg KKs8BDGgfc7= CLINICAL HISTORY (test k7dpeCVsNLUvpDV9YdVxRX code = 3356) Dmd3hlt0BjlDRchDVcOPmp aSIzniVwgv12hAT5lC56CT 8sMZFnWqU2SIBhzsN0Ncw4 AZXsVKMfvFDsI391k7hxo2 stulVwhUT9LJLdTOKuB6Ah SD7uDCFdePGfX45cxUAvOF G4AJYnGTVamUIjXDFeHCC0 NWVraGOxB5qsILIgGF0dsu zoCFtiXFmmXPWphDF4EOSt pIZcY5EhUKNuKHfySKThbb r3XtBoYc6zcDAtrLajEFgk YXJkXHJpMVxwbGFpblxmcz ExGXDrUCOJnt2hACQlMapr uLDcC7woID9sqAnnJNH0iv WnBVTmPmqeQXRtph1sDNRf WnyfvOPeN1rlPF5evPpwMR E2uFRePUXfup8= GROSS DESCRIPTION (test j8jsoATiGQAdyKFPNXXpNy code = [id number]) ebyeUzXFRzvLEjT3Mkjjre OUteSV7eNG4jrKuowSSirQ JpVI6KZSUtTvSsVRPwiTJm owXiAhYrLFOugXGpmNQ6VC UeLJ0rwyczQNdmJPvjQGFx gjW0EPZsqTZnK0LzLNLzII 4vgwtbNYM8KHryxQ9dkfKB OxvgRq5waOGylXxjUyTxCt NoYXJzZXQwXGZuaWwgQXJp DFf1zZ5OVbihC97ze2S4Ye z3NTChCEZbA4XxBI7dEHPt sELzK98WWopeGFI3LEFQFh ipQBOnEI3Qo2bxHGBmtJBt LIX8GGiizZUaRRDbCHRgLE x3QOJkIRjcgQQsWC4foSxz KkukdYkhd9FbxQRgRZxhCR FuTSHaIJjyKLQmLN6AQjQx OTxBRlueQGtkBcD8JDo4ZD IRIqGcFlZtEwtsDPR6IMws ZZm1TFr4LLnCLzJ8TRX0CO ZoZFblIITiOiadWNk1WIKp XFxmIEFyaWFsIFxcZmwgXF tvZ52cgMfeqQ6fXQ4fTO2b kDEgXXMpmD4tWJ9jG1OacV 0uXHBhciANClxlcGljTmVz dERvYzEgDQpcbHRycGFyXG xpbjBccmluMCANClxsdHJj aFxjZjFcZnMyMCBSZWNlaX NyQTHlpkAaw8QfHSmtnfOe YWJlbGVkIHdpdGggdGhlIH GsfSqzsqDmP9R8zzBiTE0f JRPwSOHlI2XtTYTtA34jQQ FdzA4jPYPpXT9qNVu4XCDv FJKsDdsbtG5jaWEuSOKyzI 1sPQKxK9WiNcTdl66hfAG9 jqRpGsDlALMbut1efZ9fWU Pfyo1oWIOzf6N0PEKcw5V3 EXQgBN73ZQhcII6gBXqtIB 4xIGNtLCAwLjYgeCAwLjMg bEObGxYlY09qIbYpPYfjGL YvPGLhuCHyNNueZQI4Tc3v mRRrYRVifuN2y4YrSSatPK UcTwheSKPeLMvpmXXvOD0O LYUaRXssmbLaXQ9PLBXbPN dnQDFuwZEARVG0VK7eJGrz dZKbbamkXOJmY3BfE7Vmwh RwoAGlXONbmtTyo8icEVZ8 XHNsbXVsdDBcZnMxNlxwYX H2KCq0LRfqKHBdC4KcV6Cj YLwqQGX8NQCqFwMbHVExEL TNGvNbCbEgPgR1Tud7JxBr HDf2KPphS3RBHNGvJFO4UV J9SLU0HwA6YMy4NLGLDd6z JRKlPPD9SwN8GXS4QaD5KZ xcdCAyIFxcZiBBcmlhbCBc HWJbPUtageL6ZLBmPXGauM gqeJ8lCs3bOR8ssZRtRCMd rM9gMO5aQhvkgKMdIJJrWY 3keO1rNauxRFRtEXduDYLe P23fe4UEz3NoKZ6IBDk2tn NyxvchkW2pEMKrcfKfYFkf gGLaI5xnP6AzPXDkRuZuZh OkUBu8MIUlqD6bAb2tcJBv hG7juDYrODtxQLH9nNBzDD GyNYEuDSXuPE37UYmICLGc bmFtZSwgbWVkaWNhbCByZW NvcmQgbnVtYmVyIGFuZCBc dRblIfVxLAn3J4BemLxpSZ Qxf1jvec7hdTgtpVRxn2Zi nsOkcidhQUElLFHis61neO D3jwDyEaQcyHx1tFMjUKR4 CJ3vaCcncfjzhIXhYFv1xU SzQFJaOoQbdBxxq0EyABmr LjQgeCAyLjEgeCAwLjQgY2 3faB1lIUtvoeYnCTAfCU1i YDKtTDSexPFkxW1ssoWzgl EjtYZwyUM5XCGtaQ0ouK74 nhQubtPKNB5mbTWxMO2RBF BhciANClxjZjBcZnMyMiAN ClxwbGFpblxlcGljTmVzdE BnWmIulSwruC58ZJLftASp CHV6YV1iXYOqtrysXKLvLQ CjFJY1LLptuU97bIIpKTQe JTGrrGXdqS5Ph0kvWMAyuD YsKGD3OSlujWVmTXQaHQDf JGhgUgHwD8EPFEHsRhPeOM M9MELyDNm7SFs2AX3DXmUo KPQjGREwVkT2EFZqTDf0ZD luVG8NNNZ6Fxb7CDE0IBT9 NTMyOCBcXHQgMiBcXGYgQX NlEIspJZvroBDxJJ5eoDka dzV3EBDmDYhnUSClDFTuzO evNPXNn2mmozCpALFrQ5w9 B4ZbD1OaXLlnPs5jyZNvXO 0PTVVogNTBIVL8SY3dINKY ClxsdHJwYXJcbGluMFxyaW 2bJF4SMIm2fcHwCYOqJBls rqFyHRKnU7NemiJyZFqoBB Zuaf0gjVndVOjiZbWoKAEa w6k2tPA0gLKedRT9oQKwrM raDsEcKX5koOBtGG2yFPoc FEzqnoEes4AfIW80uIAofq JzokLxMWJ1CjRbFEyfUXJl w7q1sMqsU25zs68etdphxO ZbUIYyUU6yqK5mSbCluhKv F64sk7lfaXGnx0FolUYvpF lwbGUgdGFuLXBpbmssIHBl KIEtO7JuIPSkAKCyy8G6FT Rcb2R9JMQoDa87OAkxXv3x YDhjUA18SLIqJHwbWFRzI7 IaY3H8IWvbGDCKnJImx0Vi Y4mxKG3grRFqu7InaQm0zF IeEAgrIYZabY4pzV9hCpFs XHBhciANClxwYXIgDQpcY2 AlPKCzFcRmMMkgaGbjhI0p QBYaV00ot2EFh9JnYUNfWH ttm6vbxRxdr3PldRNrTKls WFLahDRzHNlagT2tJwHxw8 sgnNv5WMtulfQ8JKXuzi8E HdqvAudnrMkra5SyvCQvUP zzKOWjASBmEUhxTXUvSV9D CbKlTIsBKpgtQYqfRpO1QV m2JSCLOcRiRdEoXticVSS8 ZkOfCOe8KPj5PCbZCtB4SO Z6HVJmBaPyYOVaZeyjPFt6 IDIgXFxmIEFyaWFsIFxcZm zfNVubW76sGwFtKenpvDKa bjYLYbKWq5y5kDrwF36eg6 0sBCMBccHkl9BghkRjQdkj QIBgVBatGMOjU97fo4AJk9 PtUF8OCIf5rrJpjxsfkG6o DKPcesBdMWbzbRHhR6neK1 TtZYJeSxAbViJiYSf8LUGl aG8mXs5laSQmlK8raGHlKX czXOT8wZZwPYBiAJTwCOHv EZ48NLcRNBOnsyAjEKhioE VkaWNhbCByZWNvcmQgbnVt YmVyIGFuZCBcdTgyMjAgXC t1I0ClfOhlJMIjl2axlg07 wlOuj6SeldCgHMEleJHtDO 4uOjxprM49SCDhCYKbEIQb tUlhXMreJjKnnmCrC50bu7 kooXIeh6IjiEQkeHgqrLWe dGFuLXBpbmssIHBlZHVuY3 WfHLTaDRKwo6O5XUVlz8V4 CBBpXt8mAKjhUa6iEGqcMR 56JOVeJUugSUJzT9IpG1C9 OZluUXIQpVQol8MrI3rlYX 8dwBVub9NrfWu1hEIpSTqx WKMnbE8nrL4oIXUdEYIpZI BoheCYYnhmVBMtMUjYl6Tv dFxbXTYbP6h4s81wM3vegJ KvDYIWZAS3lZCzruWshZPi JF1QWBDzdlOEDovyNfRrYn MyMiANClxwbGFpblxlcGlj GfMmoVHvLgLoiGjuwJ73EY IdcJEmGRD1DJ9mTMLljtav IIInBJOrDHY8NPiajI63fG VwKIUaCSPolJNexX9YRQLq UCM9WBcftY73gYFxWQ2WWK GvNVG5EIIbjXQyNYD1EB1g fQ0KfQ== MICROSCOPIC DESCRIPTION m2btsHSmZJCopOE3AjHbKX (test code = 3371) Bpt3dfg5BbtJHvcMSjRDln fCGsxdKmep91jZX7qD95EC 2pESFyTmN3LUUbleB8Vqz0 YQAvJOFbbPWdM314t8mmo6 geffMukTD6rLkuKLVquxee TjM4HIctQNUahlwyKEg3PE jvPQSbrEZ2VQGluTUkM6Am WMIhVC7zkpj4WQY5JXjzWR QgQgE0WVBnjADxZTXenGuy YFvmu276EPR2DcHwFTPcme HbdMbnmX3jBaIbGBULINVn w4HmZUBlZXMbhljbEKAlAF Bhcn0= [facility] [id number] 09:50:09 Test Item Value Reference Range Interpretation Comments Case Report (test code Surgical Pathology = 104) Report Case: [id number] Authorizing Provider: Angela Loco Collected: 07/03/2021 03:04 PM MD Brian Ordering Location: [address] Received: 07/06/2021 09:08 AM Service Pathologist: [...] clip x 1 DIAGNOSIS (test code = j0iawAKtIPXju0oqLHNjnN 3220) FuZzEwMzNcZnRuYmpcdWMx IHtccnRmMVxlcGljOTYwMV uaeoIhRNAvjPRyH8Iqkzzq XOrmVO3vIL0uoOnpdXXnwO LaTNObBeEce3jhe240oPFv l9dbCPDRqfdboWx9mHudU2 7lw0W7NcglJ97rhYXeHTP1 EINgGYHdyGChZEQyGEZ4YM UlpSElG8jlIMOyEU7uzxkg EFgrIFgmUHPgzNS0TLTeiD EwM0PzYPOiUTvkBAAscxe8 QhXlSg7pgEVpqZnsLIrgQU YtAVLhXEzvBLEdNbHnWF1c U34QP95wJSZOK5NKLCPNQZ eFKVJQMN0CK1m3PJKdeeKe LSAgVFVCVUxBUiBBREVOT0 1WKEFwycguZZPpJu5wW59O K77gBASKW7zWZ6OXV8SRIO rFEyDTO0dLSXapKyuNFTDQ PxjmSBFlDW9qAK3FWNVBOA oTAGBVEVxVQG6XCmKFFoXW LCYIPMJAPAIPNG1THLEyqF FyICAtICBORUdBVElWRSBG V8ZrPSyPUK3QCxIIIHLXWX YZHLKLZTPsD8TrSVSBBScK JD7RTFgwYZGftTKjRYTbMK UPAW5GAPGIUSaMPR2FI1ZA LgUDVlduON4EPEOxEUSXG6 BTWTpccGFyICAtICBNVUxU SVBMRSBGUkFHTUVOVFMgT0 JnHUHOHUsTDzJYIAOMQ79H XHBhciAgLSAgTkVHQVRJVk PhEh2EBHnVG6csF5UCIGQu VHeAGMeIV3kZYA7DXQ7WNE zZSjKZK9tqnUEmHVSqnxXo jNYtBECiMMMSXN1AZEMVOm DPM0CFUcFKLDIVARnAESWC BG6QO4f8BHZdndKyCPXeJT STBClXJIXyKhWSI47VTkGU RQ0LCZPOFvUGBLPuSKGDCv 5UAZcnFQMhGN5lMG7NL3PB SVZFIEZPUiBISUdILUdSQU CANFXYQ2NRVXJHHOTUDdXH XPbHW86SVhQBBCPdsv97MY B8JpNnx0B3EKQ0LFJvQCHf p0xmLUZcbLEwPnClInKgAu SkIouqtJPwWOUqErVlj8og s313lARba4otDHLiMpV0tF BhVNBhxJUxG202LCGaJUyr n2diq8RbBRYmeZTwu6B9MJ SSxhmphCi4tOtfX89wx7Q7 LvyrQ8mvVOSrKHFyA8WhHR 8xKJCdPtw7FMV8YOO0HMXd AICaQ3CeGB2iBGNzmADvIK k8h3dfjHwxIEGhZLG1v9hh HKyezcByPS5lii2jtTn9v4 xjczEgRGVmYXVsdCBQYXJh N7NpvFtaUu8haSb4vKoyCw duLWA8Apv5MA6gzz21toq8 dSxgHGBkkzgjOcQ9OMxkQV UafywaHEb3IXrcDKQpbDU3 FDUqjGKzL7MtRCCtNY6ays s8DXV6TGzjMUAzAoF8VFNa rAErDGKblZzfESiey245TW X6DzAuFZ8hN3Gae5D5eL4i aXRcZGVmdGFiNzIwXGZvcm 0dlYJcTDuvl9RrTZZ6bjJ5 fUAmrBKkWCCbZbV5DRbuQD 3aro79REDbOXC6ql5ksHGe gVtwbsNjqRZsDKynG1UvXD Gxm646QIRtO8NhOGCuk5V1 txNlMhHvRVCsaRZ6jnY6MR CnXB6ulxvck3ajRPpwUBia HPScybD7tjA8PJYwpWLlA4 RxoY0aXZPfDL0wroxga8nf DVS3PGfgSGWmJYA9EeKgCY Bcb6Afknz3DsTis5AcvUKx DLsuK81it608KMFwwsSaC3 xwbGFpblxwbGFpblxmMFxm rfR6SOTlTJmgpscgFGCrKL uoY5ldBjUwBRWsnHtpQYxc l6TwDAVqSOEsZaWmcEBrTM MoJew8HUBtyQXiZUOvTwGo W3szxiwvMjZEMASdv6rmW7 lsePLJzDAzD0KyJYmyvtKa LOspUYubEKFqMZX1PG8iYU WiHRGnob06 CPT Code(s) (test code u0bctEStQFTbgWR0MjKzNQ = 3357) Fqu7gdb5BrhWSbsIQbMByj iQUrjqVajm78pFN5nL41XO 4xDKRxUcQ9RSIjieY0Opl6 PPDkPNRwaYNyD371w9ogc7 bhrzFhmIR0cCqwWWTesffc MqE1IWasIBEenzuyKZy8WP wfPZBsfLM4PQZrhVTmJ4Ib OKClEQ2lsgc4CXR2LPlhVU PgFlT9EEKjaNBlSBUtdXjq LVowq452KSK7SsIlBQTblo CmeUzgnA0rVxTzSZU6HYSq LYv3WUYfkf0= CLINICAL HISTORY (test s9inkSYoLOLtuXN1AoJvCY code = 3356) Okg2zwk3UufVOirRPvFVda cTRgwmEerk29nUS8uV36HN 5hYKDmAgY3HQYqngY9Cse8 CAAoEIClgPAtY856e0ols5 nruhCxtXT5QFTxYSWvV8Vu ZT0kLZZppGKcF39zlLAhLZ Q0SBCkRKSulPQoNULfNNR3 AKKkvARrU0viZXXiPY4izj cmTQhkZXwmKCOdyHO8OYQo qFFqO0RvDKBbWKscUKRbbh r8CzHcWw4jlDOlmVssDZom YXJkXHJpMVxwbGFpblxmcz JgGQYhNELCox4fCSIjHjer dNDyO2vlWP7ckYaqTYK8xn UsUZAlBwzeFFJzhb2hBQRs LpclyYHjB6caKT7thIdiYD Y4cNGyRKJubb0= GROSS DESCRIPTION (test l8rdsQTeHRZbaTBSHGSlFb code = [id number]) lflyXhKWFleJPeO8Hdselg IBvjQY9vUQ5xlMbqvVGksM WyUQ6VLFAnRpGzCRMbsMSo dlWyMyNhQMLkaQLmaTH4CW JbKE6mnhpdHXgaOUawUANa stH5HRYokDIcE7JuODJbSY 9cexeaFFO8DVplwJ7fnuAX ThnwJj1sfAMayFemUfSvUz NoYXJzZXQwXGZuaWwgQXJp DMq1fE8AUezeU77sj9I6Vm a4KMDxHGFsE2DpJR4xMONt xEJuG28VMdlvLAC5SJSCKj boYMRcTB2Pn5ysSLZfwPRr BDU5CCrfgZJfHDLbBGCzPJ c5VXKiHRnklQIpJD0lkDee KekthEacs4PtaNXyXBtjQG EkIWZmWOfyWVDjPQ7RSeNv VFqRZdfrPTmnZuI2NXg0VG RKCpIiVlWfJhcrSEY7HPft DKt9JJp9EMrVGaB4NOI6FQ WnFTsrYHZeWvxpMQo3QUOq XFxmIEFyaWFsIFxcZmwgXF pbA13twQmdeO5oDV6mVK9i eDQhXVCsfQ8fWP5mM8GncA 0uXHBhciANClxlcGljTmVz dERvYzEgDQpcbHRycGFyXG xpbjBccmluMCANClxsdHJj aFxjZjFcZnMyMCBSZWNlaX VtPETprnJkd5MpYWnhosSi YWJlbGVkIHdpdGggdGhlIH FkjFyxgtHdZ4X9vdZlDZ2a VOShCVLfF1CgKLPpF29bJI WlxE9bGRSeNY0kFFa6YEKv ILFiSxueuR1ggPIlEDNgsW 6lTLRkZ0BwJpQtc89akVL7 jlQgGtBvJTBqyd4fgR0kGK Kskz5hNHGpq2Y8HDNvf2S4 PAUxCJ40APkcGQ3bKZdjNK 4xIGNtLCAwLjYgeCAwLjMg dZCaLzIfA42pVcAuAEihOM SiLIQnyZIiMPhdNZD5Se6g kULbFQNoxyF3h5NaPLauUL AdKpopLPXxVJosfIKhPH7U JLTqTZugroNfZO6YJCJpDL dnIBPlpJKWZMA8MC1cGNhh tIIwnfvpJZUiC7WwD2Cnob NtpZUmXZAulgJdn6heAGS4 XHNsbXVsdDBcZnMxNlxwYX B8YTc2NMrtSQQwL1OyR0Ao OXyxXWN6EQNyXtYeADVjXN QKYqHpDxGmVlT9Vin3HsWx CZq2NGqzD5TOWWDvPSX0YH V6EHU7DqA5HJr9ZVJGOu4w SPBoNXL4NqM2FVK4DeD4RL xcdCAyIFxcZiBBcmlhbCBc PMUrMRvtkrW3KLEqJWZajS xrkP5iXq7wZP2hgICkKIRp wP9kTT7rAlzrwVNoJZHbTY 1deY4cDxxhKQUaWEaoWSOh I42tn2KTy0SeNZ4TNXf1et VrqwdmkW4mZACsveDfMYcl rXVeA1feI7OmPVGxQoNeLw IbZIi5AZFvcX0eGb7lrMAg wW0vqWOlOEkyTMJ7nOBlBS FyCFXeVVGiXX82XQsZSQHh bmFtZSwgbWVkaWNhbCByZW NvcmQgbnVtYmVyIGFuZCBc wAkgRjQpFLy0E5KtkHnoTT Kju9ttvl2elKuidDZnb5Qt vgLuornbZYIwEUIrl24gzC W2fpXbCvAriUb7uMTgYOG7 DX7urEwwhdqjaRWcFDj7hR XtLFTzTdUvwMhpm8MmUBpb LjQgeCAyLjEgeCAwLjQgY2 3znF2qWNaxhnYrIDCqTS4w NXKbQPZnfCXipQ0ybaIvxn UidXOptPD9GCCmvW1abD60 llVlovJJAD4cuYDtJR5RAJ BhciANClxjZjBcZnMyMiAN ClxwbGFpblxlcGljTmVzdE JtPiBvkNcmgB98WCAqpYHx PDX2XG3gMGMvczxkZUIiCP MzKSF7NQblfK67cANnXFWu APLvnWFztW4Ls4ewLXKioH ScNGH1XIfidMRrERBhVUYd NYafFzUkN8RSIIWzFcLcZZ G0XFXwXCo3LUs8ID7SUlBr YGFcGHDwSgH9GWCzILt4MJ bmXJ0WWXJ0Uej6HWF6FSD8 NTMyOCBcXHQgMiBcXGYgQX VyIOifDJdhqHHfVY6opQao xfF1LVNdIXweKVXlKOUkxE lbCPZBn9dfakBlTBAzU8p1 H8ReN5BwIIhkQb4raDYgJX 5INLAwuHZUCAI8KW8rUXTT ClxsdHJwYXJcbGluMFxyaW 3lAW0FNWt4zdSfSUFiQXit iePjUCXoU5SpdbXpHSlkLU Nxvr5cmZtkPBruFaQfYHSe h4m6hNG8vWRggWW4xCQcgX ptPaYuDE8mjOJqZJ7oJFok UHhrojYks4DjTN50cDClgs YsqqOpZGR7TrYeRCrtCRCp a6x0oWcbI69xa72zbtfpmM DvHFVxXP6jsK1mYeKycnRg G97ib5evhDZiy8ZmiSZaaY lwbGUgdGFuLXBpbmssIHBl YCPsF0UqMLIiZNTvf4O6KO Ryn2F2GQInWq37RZxhLq7h WIokCX14CRCpZVtiYGZhY7 FtW3Y6VWrnMKCBaANkz7Dq Y3pbNP0ppOYvw5ThsYr7mI ZjHOrdMHWhgL5rmQ3nHvWk XHBhciANClxwYXIgDQpcY2 YwHLPsXkLzRNupiTpvfR7s RLFqP34rd1HIy9TxIERwYB viy9zvxYhxq3NjcJOcYMlx GZLayDTjIFfjoG3lMdXhu4 umhRv5ETucofR6RPQwdn9N SvepJawxrVecl3GdxDGtBY bzACKsDRQmDUitTQMhOJ6K NfZeAAcAPgqfINplLjY1HC a6BAPZLiAjAqNqLujtTLG3 FvHuUWb8FQq6WAbHUtM3AY H5RNBkSfCnAKLyKcokKBq6 IDIgXFxmIEFyaWFsIFxcZm prMWfjE82mDgNrYmpjcTUt jfRQKuECy9k7gPfyC19nd8 3pAJGQaqDft5ZgvbSeRtqp BAPdVKtlAJCeK09re5HMj9 SvMI7GAVz1uaItuxwaaX7k BVPkfiFtADttcHEmU0isQ8 KnUPYcVrVfRlGgVVv3WMQm mH6rSu1frREaaK3ejIQdFC bhUCK8wEUcUOHhQGCyAIIb SZ58MSyAKFQemjIqETenuN VkaWNhbCByZWNvcmQgbnVt YmVyIGFuZCBcdTgyMjAgXC p2Q8BjkQibAOImz0reds80 mlQsw4HuiqJhACMpaTWgOV 0rDskdyN21FVErGHRsYWGc pSrcJThoQgOrihOkO51cd4 zkdYDbs2YndCXjsJaroGFh dGFuLXBpbmssIHBlZHVuY3 BsSSZxDFSco5A2TDIzf0U7 GJLjOe4dMYuoUq4dTRonCH 61MTSmTIyfBQMuU1WeU9B5 UEmhBZCMhIWkc0QpE1aqOO 7ejSAzf6EvmMx8tQWnRDax TJSidC1ucW6uEWVeKASsJD JmwrXJMuahLVYkUQeOk4Wh eXhuZPXrI7e1w08tS0ylxZ TrRSNBINF4mIHqjmTkkLXm GI3QGWOebcWRInpqHwPuNs MyMiANClxwbGFpblxlcGlj YgNjyOIzPaLjhVijkP82BH NlgAGkYTY1MN1yZZSlvpju WCTuXQRkREV5TNilmO48hR MwWIFhNRNjuKIpzR8DAMIf VKU0WGkubM67hQDyKD3JGF ApEDG5KVSdyGCfNXA5MT7e fQ0KfQ== MICROSCOPIC DESCRIPTION f5pomFAzEPXvvIP6AyJcZB (test code = 3371) Zog9txi1XnxNAcxFFbIYto yWYvnwBtkh27tAG8yG80BU 7oHBIoGkZ6MBAkpxL3Wrz8 BAMdEWDmzQDcG844x5wrb4 kpooZzaDF7aUkcHAVrmeml HfA5MWtvSPPyhymvUXf8FC ycBTXtuJC8QRBudBYsJ3Zn PUGjSM0pcyy0VNL4OEvcZL JaFbM6ZWOxvCZcYZPdnGxh STrxm733XUA9IjCrTEYrbf XsbFnerU5wNdXrHBZUFAHo b7UvFYAtDGDmtfjvGFTvBQ Bhcn0= [facility] [id number] 09:50:09 Test Item Value Reference Range Interpretation Comments Case Report (test code Surgical Pathology = 104) Report Case: [id number] Authorizing Provider: Angela Loco Collected: 07/03/2021 03:04 PM MD Brian Ordering Location: [address] Received: 07/06/2021 09:08 AM Service Pathologist: [...] clip x 1 DIAGNOSIS (test code = [id number] 3220) FuZzEwMzNcZnRuYmpcdWMx IHtccnRmMVxlcGljOTYwMV kdjkItIZPpeIBeS5Hsshsu TWhsEJ6iLT3moFsuoGXrqH FjFHBcBiKko3hds030hNOh d2grIXVWwgsifRb2iGseN0 7an0D0RtyfS94jqICzCZU2 MYQoQLOrjRYeSXKrZGA0ZH XqdCWtT7ymLYCpCO1vocmz ELuaNOrxGXVmaOD7MHRvzF XgC1MeLAVkKXbjISTuehz5 GfZqZs5yjBBwvRfrPRhnQY MnRTVgHOtsAXQjLrIrOF0p E50LL15lXEJOR8PYZHRRGD pOWGXOHJ4PK8i9UIXesaHv LSAgVFVCVUxBUiBBREVOT0 7REPUpmqhsOUJnEl8xJ76K Q73jWNPAY8vWO4YVT5VWNE lSZaWJY1kSPZuoIjfQMBFB GrnaMAOaSS4fQD1FORXXWG xCPXLKOEgYLK3WZjXBSdRF XTWPTRGCHQFBID3PRWYsiM FyICAtICBORUdBVElWRSBG F5PtOFmOJE2RMbEVRMBVMV XZTTBGIZCbA8ZmOZPVGGzV JG1EPItpBHLjjKZeQMGhVO BYCV1TCUNMLBrFVM6SN0RY HcIUDgtbYZ7CPCGnOANTV5 BTWTpccGFyICAtICBNVUxU SVBMRSBGUkFHTUVOVFMgT0 TwRNUEIMjODwYUCDKBU13S XHBhciAgLSAgTkVHQVRJVk GcUc6UYJeJY8miL9YJYPZb SLkJCRaPB8pSLT2RQE1ERO rFGuQPO6nnuEJcLNPybqEp fHEyPFJwZSFFEE3BWXIMGc HLO8RZWgABISERCTdMVJEK KS9UR9g0DAVhvnTdEUSkQZ ZRASdASRDfReNBZ47PXnRG VF7BGKYQGkRRSPZmMYMLGn 6DCGriYNDoUD1hQL7DQ4AA SVZFIEZPUiBISUdILUdSQU QWJFWCF1XFTTUCNNDWIjIF SVpSA72OOsEAPCJfzp68QP V8YdRae0X3AWK6LBIvHOEb p7ucVIDrgOAwPnRfLfNcHb PyRoscvOVnHLPtMrYtd4zg f750gJTcz4pgEJVrQvW4pV IiVQOndYRnC313VUBoYCxw l6sbm4PnIIBnwWIne7K5GZ MJdkpniXo3dSvsO21dv0L5 LazbP7nyLWKdBATuK8SbGE 3gAVVmBwd9OSS2ADS1CSBi TSYrE8PqWF9gVTZvjCIzSM i2u9vaoMmqSOJhCAS8t4tl AOfnlyCiXJ2yoj0bgMs9p0 xjczEgRGVmYXVsdCBQYXJh B1PeqQyaVy4zqTy8fIolVq mhFXZ4Hfj6CP1ely43qfh6 pGdlTNZbgextWpD0UJrcWJ UxnzqdSYa3KXueLSDfxSL9 ESDfjBVjP6QxDMGdFX5wmc w3ANL9SBxhSDKoOaG7HGSv cCAhCIBsrSboEXeov411LZ K7KdTcFK4vZ3Nfl4E6qW6f aXRcZGVmdGFiNzIwXGZvcm 1tyWCdZBfpl6DcTCA8xjR7 mBRnxUWkIQNgCxJ7DZoqJA 5rln12QJKhGCU9zo3fcFFc eJrcgzCnaYJhHVcwU4JxQS Ctk986UEAjA0EcVMOhz4R5 upJgKcQtMYFtxGW6lgL6FI ItVX7qzdpct8ywDCunCZdz BIYvtwP4mmT1GPKpsXQnZ4 NhjY8dTOJyIP3etpsir7de EPK0GRmsMDIuPBK4HcRgZQ Ckd7Nyheo7AcDsz9ZkoMZt PDqwX00ue461UTVdcaSoP1 xwbGFpblxwbGFpblxmMFxm fbA9OEHbJPkhwfoqIAMrBB vsJ8boTkBjVSBdgIwbYGmi q9UpHGGlPJUaHrAeeEFdMS PzHjz0PSZxyABrXAIsGrRc R0hqnkhmRjJVQPWit8wzS7 imsMXSaWCqL7BrIGrldvSt EOjfCOvwBBKoYMJ6EW9mHO ThXEHrlw47 CPT Code(s) (test code n5hhaZWxDWSvnPP6JoUeFY = 3357) Onn0izo1IucTQcnFNnQUxm tEPoxpIqro63pJE3wJ98LK 8hVYSiOdA3HGTfigT1Eed8 CEBkZKEqhZEjL547l0shk3 hknhNyvAZ6yTtgAIWocofz TcJ2FThlKFZkjnhxRVf6DB spSSWvyOL0HWAnoKVyS1Bd JIUwBL3oxki6KGP1YKvvNK YoPeP7WQZbvZQqQPDniVri REqui736UDE3YmPxAULfdu OaeHyrcG9bRwVdVOC6WZRm OTr4CVWkfd1= CLINICAL HISTORY (test r4hjtBWaLNQfuTG3DaQaIM code = 3356) Jlr2fxf1HycOPnpXSsVDbz rWExvoOgpv60fBP5eK61DM 7kXZHpRiY6NMZusmP2Qhw8 MULjLHSodPGvU063k0juz5 qpalVchHQ4IJKqWZFpB5Kr YB0sTIJcwYEgD99ycWJjUX F8PIJnLIDhuFVqLAEbMTM8 ADZmlXFeL1xhGZMqFA4etr frRAvlFVjxLATyyUM4ZKVk gNPwG0OoITEqPNlnUXCgar t3HpTlIw3mmNVyjMnqNPnn YXJkXHJpMVxwbGFpblxmcz YbHPEiWLPLfq1fKPIjMhpr fMKuA3fvOT3okRiiCLH8ph CgIZCnRvmfEHTuit4dBXXu SfvvyMJsD7xeEQ4ngCiwHJ P3vOScTIKofn4= GROSS DESCRIPTION (test y4dfrZOtUIIymPSYPRPoWt code = [id number]) jmwcTxXPHskMLuI1Ddyeaq NPxgAI9sZI8giZfmwPNokQ GsAP9HMDWjQaNpKEEhzIFe mzTaWzDzVJTekYQvxVV1OV AnFD2nrwteVAndSFiaSXDw waW8GMGpsBLrJ9HrAJDcQL 6orgfiKXT3XWuraO9tlfXG RrieEh4byMXmwAyxXxRuSo NoYXJzZXQwXGZuaWwgQXJp UWt8yR7YEiisZ39wm6E3Aa y6GYKsJFShK6RlGF0rATMl lGJuO29VFilfRNP9NHTGOe ipOLBfBI7Fk1ynTRUudCOn YQC5XSkyyEFxMPLbEQJnRZ h2QEThRRagqEZpPZ0qkVai SsiumQzxh1MhoIJmJWqrDW QvQRAeUGjcDMExFU2UAuGi DZqXDfvbVSizAjK1VIe5AW DTXmUlEmZsBrevUXB1BIgy QUr4UNm7KIwBXiI6FIG4EC UmTIwaUKMeQjyxDIs0QHSf XFxmIEFyaWFsIFxcZmwgXF qcJ52baKtxpO1yWX5uIG8i eLNyUULhsL4mDF6vT5AaiE 0uXHBhciANClxlcGljTmVz dERvYzEgDQpcbHRycGFyXG xpbjBccmluMCANClxsdHJj aFxjZjFcZnMyMCBSZWNlaX CbJHYvsgYyy8TgISomopHc YWJlbGVkIHdpdGggdGhlIH TfpAzppiMmQ9N3miQqSB2r DHMqSJMbK4UvOWPnY06mWJ AbrT3kQLTrRU3vNOt1EEYf KMZaLmjbzP9knSWbFCPgyA 7zZCEtU3KvQzQlo98bwUA8 cpPzAnQmUYAczv4ccJ7vWL Itwo0sHSZkd9T9QDOif8C7 NVHhYO62EIeeBP7qRAuuYW 4xIGNtLCAwLjYgeCAwLjMg nGBpSiIeL57bWzNhVCseZX SnUNKivZCjQCveIQZ7Zn8u eYSnZTRmgpE6w7PuSOqwFU RgEftwHQFxCIqiwUOpKM5J KSOlDAfyuhQzKT6EOPSwBS pzBVLkdDXBNFI7ZV4nZCid gMCtbickOLWkZ3XoF6Btwp PvlYJpHOVoifBha1hrTEX4 XHNsbXVsdDBcZnMxNlxwYX J5JKn0YModLKLpE6SoD8Pw DSjtGOI4TJMrIhTvCIQgHJ EJBiXfRfGkDiR5Wqg0KjFl VHz6PMpcD9PXEHWrAHL5IF Z3LNO7LcG1MJy5PVYOCc5q JRTxWYG0ToT0MUN5VeC9CM xcdCAyIFxcZiBBcmlhbCBc LZWqFHqjveJ5ZWYnSAWnbI togS3yFm0sGT0ciGSuFNEn yR7tEI6sBgluuFJiVXCzRR 8scD0rRbrmWQFjPRgmOPMz Q53ex9THt1CaCF2SEDq9bo UgbyngpI4xOLZsdiFhYEen kCUeL0vfT4KrOJKkZkWxVl WfTCb4XPFotI2pFg3sjSHp rE6roUMbCUzuSZU5jFLrSE AmVJTdAOAsEI27JHxGGQAy bmFtZSwgbWVkaWNhbCByZW NvcmQgbnVtYmVyIGFuZCBc qFepCuNiBUz0R3MviRytJP Wbr0hcrb4mtJdbtYGpq9Dv ncBrzacqULHpNNAwg75eyW U0dsHpKzBpgIv2lOUsJAO8 UG8oxAbpeowagYDyRRq8qX AmIDHpZbXcsQxgm7TxZKkc LjQgeCAyLjEgeCAwLjQgY2 4zgV7mQCljzcPvXNWsOW9b LJBlLDQrqOJbyX6oooYvnh XzhSUqhEQ1YDZucM2puD08 bfItpsVOOO9uoDEnPO7OTV BhciANClxjZjBcZnMyMiAN ClxwbGFpblxlcGljTmVzdE HuJkGxbPoofB63JODlaZQh PMA4CU2rLXWnagnmVGOoSW UaJUC7LEsivZ72uXIjSGUy EGVftEOodC8Cb0hgXMHpzO MoNVE2WCqbjCJrIQZtAIUy UZitEvRtK0LZLDOpMrSyXO P3BEJvJTj6PRx7TS0HLfCz UEUrQOMzQaP1ZLNlCAr7LD dsEH5FHEO4Pnu3QLZ8JPU4 NTMyOCBcXHQgMiBcXGYgQX FnPWnjMYxyrJUzMJ5rsBdh cuB9FJMoUVghHLUvVKFkpH svIIHWl7qfgcFuFYLeD8o0 N1AiJ7MfRQzxEu1emOEzOT 7ECIWefMTSGTT1AD8sNJQK ClxsdHJwYXJcbGluMFxyaW 8vCX0WJSb7xzPtTIQcWWhs jwOeYCSiE1YxqfFcMKszJD Xhea9pvMmwOVyvDyKvDXRc p9o4sOW6uYMtjFC0wKFqtU ndSxCyUY4rkBNnNS4tDWaf BMzajcNhm0CcUH21wCRqxu KcemEjVNT7FdCqEBeqFTIx o0w3rGnjO94hc90pcbrbrD YtKMZlJO2tyK5jOcRxhtGm A68tt7uesXEuk7LkgYXxlY lwbGUgdGFuLXBpbmssIHBl VAStW5ZbIKLiTRXrn7O0IW Qfq8W4TTZiYc83FVycNw9t INixZE35QMUuCBmkLJVsX7 FnM5E8GFlbGVLJiBRzi4Qj F5fwZL4jaTVxc0MjpUj5yC ZlMLeyWISkrH7vrD8sAyIn XHBhciANClxwYXIgDQpcY2 HaDLHzCkLxVJvycSlufW7b PBJrQ38vb4RBu4BjPPLrYC tjm9tjgDzfe2KuyCOwNUud GPJwgMXbUDcfhP9yReKsi0 dnsXv4KUjfzzK6GJSeiu0Q DfszTkqqfFuzs7VkfJBaJC vlQBErAALqIHlaWICmVP3G KsDuRZzJEcvmKWpuQcG7FQ e6RZKTYnAmVpCeKxhtOYC1 TtNiCOq6CZy0FXbMDcG0LP I2DYWfKmAlHVTqZobzCAx4 IDIgXFxmIEFyaWFsIFxcZm dsSWnlI89yAnGdUpvarATt ekHKLqRMu6q5wNgmI92bb3 4dWSXIpqRdm1GtlbMsQnan DXRwYQgpPRVkL06fb0TWb6 EmFT4LFYx3evUunglalM8e VMMrxqDsTNijwTLkB1mjR2 ZtXNAiAfTcOdYwPUc5KGRy sR6fKp8zjSTyuS3eoLEeJJ trHCS3zRWfXDWcKTHeACGd KS39APfWERSukyDsNVmwmH VkaWNhbCByZWNvcmQgbnVt YmVyIGFuZCBcdTgyMjAgXC n2D7MbyDnbWJTkk9zzrh63 arDup7RzisTrZODawRYdZO 5tVcylqG55RBSgZHYxLJRh rWxwOOreXdQremYjT22az6 zyiPPwd7FnuWZltItbaVRu dGFuLXBpbmssIHBlZHVuY3 CvZPVvFJRie7D5QUUqe0X4 ANKgFq3oZJpdSq1vDGcrVC 76YSMaTZrdFMYaJ3NzR2H1 RSiuXIHNxAMvj7DpK6vjCB 2dgOEkq0PgcXn6nSMbWUng CLRqxG4bmH0lZCNnSIEnLS MoaxQUCctbSOQvMEcJu4Kb jPonYATiL7b5q78yC4vydT FwUXRKKOL3rPLkcdBloLTu QW6MYCLvlnSDAubkIoWkIx MyMiANClxwbGFpblxlcGlj ZtCsyPEqQmBwyZphlG23XI CvtAFpWGZ2VG4sJTTgmxuk UEWbTWUaKHS9MXjcxF34kC KfCOAmNDSuaXOtcN9YUQSh MMX3ITztyD75lNXrLR1BCB VoYFZ3IJQsfPDuVOO1CY9y fQ0KfQ== MICROSCOPIC DESCRIPTION s3efaAKjDGOjoAX7WgUbDS (test code = 3371) Fpe5vcv5IbtONzxYWoVOey iZUdajOkji40gWU7tN61HP 2pHEDiUtV6YFXaoxJ4Ilp0 QJJpTHTkwDYeZ496g1bui3 faahQxaEN4wNyoTRGoogfg OlJ8COpwMXFkfvjaKEq5FU caKZCuaWO0FAYavHSfX5Fo OKWkDY5ejwy7AWE3MMccRI VfClM1GAVvrOQpQXDoaJgx YCgte250CJK7FdOhQAJcfj YxrIvftP3tLaJfCAWYRUOq m3GbSQUpCWZdeftbQMSdUY Bhcn0= [id number] 09:50:09 Test Item Value Reference Range Interpretation Comments Case Report (test code Surgical Pathology = 104) Report Case: [id number] Authorizing Provider: Angela Loco Collected: 07/03/2021 03:04 PM MD Brian Ordering Location: [address] Received: 07/06/2021 09:08 AM Service Pathologist: [...] clip x 1 DIAGNOSIS (test code = [id number] 3220) FuZzEwMzNcZnRuYmpcdWMx IHtccnRmMVxlcGljOTYwMV yssaHoEOOpqMJbV9Naxfab YCvqDL1xNN3rbVbxjLEoeL IoAJMoRiEmh6iqc010jLWc b0jsKDPTihfetZg3fMrdB1 4ic8I3EwsxX64ogOXpQHH9 NJBcMESqnTLxWCUyEDT2FA NumIPrU9kuDKAmFA2sxxcc UQuzWJqdFYLvxPL9VEIbtA HsV6RyVYNaHOkmQRGcgce2 TrQnQa7oyRAwmPkhUEapRW DsSKUjOWqdJXNnJhRdYF9m X38XR55lTGWLC4IFDVVRID nLKXKCLT1IW3a3YCKdaaZg LSAgVFVCVUxBUiBBREVOT0 1YMFJppnduGCRwBp4sJ25O V99ySGCVR5qNQ7SVL5SCRR nMIaSHP6aRSBfaOmeIHJRY XvriTECaEX0jIL1JVRPGLW wXTJQBVAdJIV9RLeMPWbEK PWYZRVHQRYRXEE6PSQLinW FyICAtICBORUdBVElWRSBG Y8UfOZnGTW7FCaPNLEIFLF JGNRFJHHCeB3HgBFMPZSsR PH7UVWdkIMKhiANmDDHdIF HWDI8DEOHTSIpGCF0YO9CR XiDRKfakRR1GUYKgFAWMN9 BTWTpccGFyICAtICBNVUxU SVBMRSBGUkFHTUVOVFMgT0 HdSYCQWPwBCpTKXJRJY67I XHBhciAgLSAgTkVHQVRJVk HdCo3QLFdRP6blP9SGTPAp YUmUOAwPT5aQOC2ENJ1ECP mDVePBR5bfqRCiPYWryhSv lQFgVADiFNLRPU2JRBQYLv TFQ4JZJjJJEFAZVXyRFKMN OD8HC3s7MEAbuvRlRGSrWU JDAXkMXUOoEzKOP28ZDhSC JJ7HIGXQBuUMISAwEEMODm 1QTRuiYEMvPR1aWB7IH7OP SVZFIEZPUiBISUdILUdSQU DKKZJIY2RWNCVMAEHDXgDU DZhPH37ZWmFLGWUzve32XQ B3CfLzu1X8QCW4EZVsOYCq j5ahMSIqqZJbOtJjNnGyZz ObNysniIRhALEuOkGoi3ol f361xRAbq1owKQRmIpE4zY OgEGHhzMUmR777WYPbYRdy z6llp4SlYISfdOHgy9V1MP UBfxviqKh4yErwW78vl9L8 BpnsR7seTXKfKKIzZ5UkMR 0xREDzBnc7LBF2SNJ2XYQn XPNzF0SrQG4pDDZluBRdHC j8t1dcoPjyIIRhKFS0w4ct KZvwegHgTB4rlq6vbVm3p5 xjczEgRGVmYXVsdCBQYXJh F5NhgNasDy3ehPg7wHatLc miHAY8Xbu7QE5kaw36ysx2 zSodZVUcczyaDgF6ZQaiMP DrbcleTQd6QWnyIFVllXU2 CXMjvRUoR5TmOANkWO8xys i4RTM0QJqgQRSaHyK0LPRs iPRqQDZucOsqQInnm239UG M5GaPvBO2wU9Mqe4A9eV9g aXRcZGVmdGFiNzIwXGZvcm 4igURbXThwe3DwIPO5dgT6 fQCezYYfUTDnFtA6WFrhBE 9bzp54WTKaMUU5ac6jpAPv xTglbxCuqWTpUStiG0AxZR Yrd184MRJfZ5DyXQPwl3G1 fmScLtCbPMCxlNF6doI3VP CoRK0sklcbt7lfOKylSUqp DLZbmrR7xsQ5NPGgsFYnY7 XwbV8vRJCwOD1yauruz0jk ZRA1LTfaCIExXAA5CxFxTO Cma7Lidmj6XoAwj9QbgEBo HLapV35lu955KKOktuWgQ7 xwbGFpblxwbGFpblxmMFxm nbR0YJEfKKuzkrpkXYFwEM izR0anLyCgVIBswSvfERqi z4AiZRDeBPVcEcDnrECyMR ZqAan2NIWioCUyAJBjRiEy P3ifngvvMfELHSLfp6wbO8 xzsGIAeWTzE1LxWKbeagXi OAiyLKbxTYSuUQF6PD7uGW ImAANcjr47 CPT Code(s) (test code l6uoqYBvEOOcsPV3FdXpYL = 3357) Kqo2xeu9BvoPQxuSNoRFxu uDNizmQwiw11wNX3iH83GN 7xQRAkFlQ3DTJeanV4Dij4 YZQlKUSkjJYnU178u2cld6 gcduJkxEI1lWaoDFPgvswi BgR0CKlnIZCwmuxnYMn5YG koNPHxrFB2CNFmyJMnG6It LLAvRZ7uwsy4ZZV3WTwiFS KnRpX1FIUcrZItZROyrVep JEech738FWQ7NtGmUOJlsl OdtDtuzJ0mIfFqTCI4GFFs XQn5AALfxi0= CLINICAL HISTORY (test d1folVJbJONmuYE3KzWhGA code = 3356) Zuh0tcx9DotTEwsNTqALmy gPTlwfHhxc42jPO1jY30BI 0qDKHdIfF9JCMpfdB4Ngy7 MDZcWADwhEJlM275b2fmx9 ylrvBlbIT0QDNmKCPdY4Sz BT2bXCKvlFRhT38krCVxDY H7PITdWQNymJSuSIUjANZ8 WWMidTNfL9xcRAZmWV4mhu iaHRmrKXhdYQJruMX4WNKk uXOrX5RkZMNbKVuhNBHuur x2VsCnXr4vuURnwEdsHMdx YXJkXHJpMVxwbGFpblxmcz YyVUEtSZICug8qNWDbCqjk zOSvP3luTO8pcMayNRH5xr ObCNSzSpzmILWuvq4qXSOh KpcpwOYkZ3mfMR2vzMghPP I8gCAxBVEkbx5= GROSS DESCRIPTION (test p2efkSVwOMYubGZMJQKjAc code = [id number]) wqxkFgXFEigQWdU2Xyamhq DIikBX8fYS6vjBmsfQJptF YlDQ2YPCVjHnNsSJZvwEVo stHkBpFuMUOzoWBshIJ2GW FjLO8wdqbpHQbpDLbiYELc qdG0ESRwxZYjZ4BpQGXkKP 6zzsfgBWU9UOmohQ1ehjSG UnplLt7eiXJcfHutFiScCe NoYXJzZXQwXGZuaWwgQXJp PUj9nS1YOimoN99ub2H3Kc a5VFGyOVRgM5SyFD2jFEMl uQXpO62QWbfhZGF3MRHUVr xdSFAcDN1Iw9eeBXJffDPd JTL0AXmvfODqMHAkRMOsEX w2JQHyLBbujIHwFN4ikBrh BpsnwBcqg3OwpGTzGNcqZZ GqPFInMZjtPAJjEV4SZsXd SKzSAhhmQRzxKrP7CXb5XM WESxMoPpWnEzrrXSH1RJqr EOi5RSc5BLuXQeT9EJK5UB GnGLtuUKOdTtwgLQt6CZYi XFxmIEFyaWFsIFxcZmwgXF hgK44eyCqztK5wEZ5lIZ3d tIYxAOYkcB5yII5uT4IglE 0uXHBhciANClxlcGljTmVz dERvYzEgDQpcbHRycGFyXG xpbjBccmluMCANClxsdHJj aFxjZjFcZnMyMCBSZWNlaX SqKTDkdkMoq6CrPHpzssSh YWJlbGVkIHdpdGggdGhlIH VktZhzirUrV8F7naEuFC3j XUAwZQRwH6ZfXNUpS81tAL FiqZ9pVHTaCN0fGJd8LDCw JQDeHtdlaP6ykNYvBQSdmQ 2jMBVdB5UoOoGbo69cyPV5 djWwJcTqCCZltc3ocF6uRP Wydp6kMBUks7Y3WZYie0Z6 IFZtOQ95NHrkCQ0wJIsrHD 4xIGNtLCAwLjYgeCAwLjMg yAArSjLpY47uJjNnXBpwZK EqWGHtyGYmFJciBGE6Hq1j nMFnYWPduaO2b0ZzWVupYP KzJguuGYUcLPiodYJqSW1U SFHiIIrojmJhKW8QTEAaBB whAJRihZHGHGH9MX4kANba mVUjwiyrUGPbB2VpR0Tsop EyaTBzJYLgabTbl2mbRTC9 XHNsbXVsdDBcZnMxNlxwYX O5NFk8EPcpLLBqK8GtT3Av DIzlBPG8NBLwQcPnLGYgIV EQKpEqVaPcMbF7Vqz5CdTc GXp3SIwhX3RISZCjMEX4ZZ O1FRD9KdR5DTg8RGARKk9n GLPbQIZ0PqB6KVA0AxQ5PN xcdCAyIFxcZiBBcmlhbCBc IZOlMPlefkR3MMGmYOEhyF pftT4mFy6aOE1cyPPaWVPg wP4bDO8fMftpvLYjDESmPS 0qtN1xBeruWQTlWLxbNINv W72hv5RSg4IoXH5CKWp5xd QpsghgcY7uHJPjeeEtSWer tHWfC3dwV1SjJNYyVuKkYz DlDIq5MGDrgT4xXj2ciWLr aY1qdIFkGTmgWQA3zBMnXT OjTKIwGHStMV82IFpREVWi bmFtZSwgbWVkaWNhbCByZW NvcmQgbnVtYmVyIGFuZCBc tVcgAkGrRGx2R1QbwOrfOR Cik9nsew5udQvyoEQzy1Sq wwImcwtvXUTnAWEli11jrG Y5vvEnMzEunOs9rCItWHF9 MY6mfWrphluczGVqVEu8nD IrRIPlCvNmcTeht7MeQJog LjQgeCAyLjEgeCAwLjQgY2 3umQ5hWLkaziRtQOSjLJ4x YOToOZBdvPUnmQ5mghCuyy XzaFSphWU6ZLDuwH9yvA51 lnIwzuTGMN8omSMvLF2AVS BhciANClxjZjBcZnMyMiAN ClxwbGFpblxlcGljTmVzdE WhMtTmvXvnqA23WCXupGPw EKE3MI7pQFIdctgxAYHjGF JuZPH4BUpgdK24cYZhRVHm GXPhxEJlvC6Vb9gcLXOktO LrESO2VKcmdNWlNGKpGNVb SQkzPxMhS6PERUZuPnBpZF J5JEMpECh1VUu8RM9VNkOd UXBxABPkHsM9SQAiXDo3AO oqUN0RLUO9Bpx2EEW9FYE6 NTMyOCBcXHQgMiBcXGYgQX UdNVeaYEsjmCBuEO1evZfk knL5JYKmYAsyWUFhDBQjhL wmWPCOi2sedyRsZCGyS5k4 C8ZaZ3QcUNxrUg7jfLMrDT 0NOYZxcILDOHC9EC5pYYEY ClxsdHJwYXJcbGluMFxyaW 2cZA2XVAc8qdGbDKVnRAzi wySwLPObK6OydtYiTRumZQ Cokk3xcGlaFCttAuUxYAKp r1c0rUM8xGBhfBE3cILdqX hqByBkGX9qlLCxVM0fRUnb LFrjupTtz9VdSP88nTSrip EzkeSxSNH7TkDnVEmfDQSw z2h9sKkbB08gr58aediigY BuKKFuUS9lwK9hIbYeanIr F43lx9xqcYYfk7OpgJHsgV lwbGUgdGFuLXBpbmssIHBl CMWxW0QhIKBoBGHjx1C0YL Sfj7N0OFJzEb70TNboOf5m MPhbXI38RNHzXOryHVXgS7 IwR5E1RCksVVCBsHPvb0Jl K9atMY2qbNVzs4YmuIb5nQ TuJRpsJWEsqZ9lwV0dCzWy XHBhciANClxwYXIgDQpcY2 OlRCOaTbTxTKskxZmagU2e OQElY35mc8PRg0HcSLUjYS dnr0pjxFitz0UpqNYiFVjo AMNgjHNuMApgmT3zWpIfm6 fwsPz8GUvansB6HCOopa9Z XlkpMwozjDesq5IpgMWmLQ wvCTAtHBQaSPdzKUQvUZ2S WcVjIMqKKrxoFCmdIgG8CA l3ABGEBcBhKyWjYscwNNA6 EfTrNOt5VLz9KRuBMeF6AB O8WJQyYdTmVHYbRtvtPBk8 IDIgXFxmIEFyaWFsIFxcZm gzDGzhL66pUnFeUqmyoXFb asBYWlFOf8h8yNiuP48ze7 8lPUZYxzUtv7NsqsXaYsqm HNCzJJwkUDDbR36hm0TNp8 IpTZ2DAHv8dmCqlwpdaZ1t NVIcxnSkGQvnwBFzH3azA7 KyOVDqBnYyWgBvIOt3FKAd oE8pYl4cgCOhcY6fkJHqPW duOSM3wATnEGOjLBNfKIVk HX52BGtLFQBvwqHyAWwirY VkaWNhbCByZWNvcmQgbnVt YmVyIGFuZCBcdTgyMjAgXC t6J0SazAbvHLEkb6bhtq31 idMac7VmxqAiERRmqRNyRF 7uVjpkkP97VQIuYDBqGDEf jPfnYOdmTbPkncXjG72kk8 tyxIDib8FcdEIduNwbmVYu dGFuLXBpbmssIHBlZHVuY3 WpTIHfVREei9M4BGLqy3H9 SLZeWk0uWWwlYa0rUTsvBS 39SLVvLOvkNLLqM6WnM0Z8 PHhnZPGRpZBja9YrH8inNF 1oxIYaa5HwwTa0dZFmTQwk OUGrdU5ryF7oTMTeLAMhAG MqcbZVNhqkLGVbHErUv5Bk lFevUQReI8x1n44kM8dibT PsNBQJAYO5sKOwejEimHGq WF7OHIGyaqUWJctgJnLzIr MyMiANClxwbGFpblxlcGlj GaPasADlAqHxdMwpeI33KK YnwYSmEUC6WG6hURNqgiob QGXcUCQgSLI9TLtaaZ36yB LnCCAmXDSqwCYzdN6MFQId ZWM3XPnniT21aSAyLV9RQP YzEFA5STSrkLXiWKL7SN8c fQ0KfQ== MICROSCOPIC DESCRIPTION d9gmvUFoQCEooXL4CnGiWV (test code = 3371) Wvj3nvv4EdlREypBUzUFck eDJmkiGivg18zUR3bG12CZ 3qBLHdUcJ4NZOrndL0Szs7 VCOrXLNigSJlI903i9rja0 eglvGmpEJ7yGxaFZNclyhi WfB0TYlrUQCoodjaOGw7CZ xfQJEezAC2CVIurRFaD3Yx IEWiMQ2kabg5JYB3YYbeTH UnKkI8NGLogDLaHZQeuFgx OJmva836WWP1PfUaIPSvza LmyPbmpF9eTmUhCECPUEZo i9BlWKFlSXJztvftORVmFU Bhcn0= [facility] [id number] 09:50:09 Test Item Value Reference Range Interpretation Comments Case Report (test code Surgical Pathology = 104) Report Case: [id number] Authorizing Provider: Angela Loco Collected: 07/03/2021 03:04 PM MD Brian Ordering Location: [address] Received: 07/06/2021 09:08 AM Service Pathologist: [...] clip x 1 DIAGNOSIS (test code = [id number] 3220) FuZzEwMzNcZnRuYmpcdWMx IHtccnRmMVxlcGljOTYwMV aedvHiKQDoqLCvF5Oxbqqb VDceVE4bWP5zwAejoBAnnV McHQEnThXbk5uio409mJMv v5ekLVUAzmmquIs8hEmnK5 4hy8B2XnteU68hoIIzZBC1 OGKcLDQsrKVgASAsHCO0KG FodDBnL8nvPJWbCY7fniqk JHzrGRbbZZPbvJG7LLVvmW KdB4TwYVCsNPxeVFQsirq6 NvKtFc3apAPowLhcSIowSQ GmHVTsKDvsATImLsBpCC9j W14WG28pKPODB6MBOBFOIT qFBGVTVU6EA8y4IAYgkcWw LSAgVFVCVUxBUiBBREVOT0 5UWWAbedrwDGErYh8rD18E T72iEIOCI2pPL9GAT8YGRT vFZxWZE3rUFYltHyvVWEKL MdmrOWSxQI3mAX0GFTJSSQ tWBRUZJCjOYQ7YLrZVGgYT PHHGJRXFEOLDYC1YUMStmO FyICAtICBORUdBVElWRSBG Q9VtJGcJKE4NGfKFJSTYGC SAOLYVTTUeH3LrNHVZRNvY GI5XXDotDWCobUTnUGWxCD ELAM3PEQSZCUpJXU9XV7DU BuFDBreqHY9XUTHvADXVD9 BTWTpccGFyICAtICBNVUxU SVBMRSBGUkFHTUVOVFMgT0 WjSBPTRBoBOjMEODCEL56J XHBhciAgLSAgTkVHQVRJVk WgXy5KQZnHQ8qxZ4KRXYKi HTwBVBjPH8hWIG6IPL1XBT cUDpYIP5tghSVvNALvmpLi xNWoMFHsERMTFY4FESEGYr IPS7CAXeJXUMVEQOjRQDZS KF8VT0p2KDRvvaJgXPQvQU UKROvQAESpNeWBD33LVtTE QI9WALPKHuWSAERaVMSKVr 0OFBlbFJSfIC3fBW9WL2LY SVZFIEZPUiBISUdILUdSQU RJBJODT2MBOYQRQDREXePK VIiZO83KDsDKMNHacw54JZ Q5PoMtv8W5SHM0AXZvWJQm f7wwJJPzqUQaNkIiJxAwEy IeEsdreRTjIFBdNlAnl9vh t196fNWtz9pbOBPxDpY2rB WtFBMfsTSjG416NALuGSbk n9leu0WmVNFxySOai2F1RN RFwaaijSf8sVxdS82xr3R7 LwjkQ5zlBIQxHXJvH8YaVC 8gOVFgXjd5MRI5ITA5FNKq WCYdZ0VqHK4eTIRepGHsSN m1b9gcqMyjODMbJRH4g8bh KMucsvLmPK0zvl1vmUo6m9 xjczEgRGVmYXVsdCBQYXJh I0NswClxZe1djBt7sUrsBx dcJVY3Zxy5TO2yyb69hhl9 jBlvIPLdxzjnFyV0TAqmZY JlqnfyNVj4WMxqXHGuoXO3 VQEpePRvF1NmGWRdLY1sgu z1ZWY8QNiaTKOoKnS7XHUp pQQdHSIlmPhcRZxhb386XX K7DsQjPS7oZ8Ito6Z7rN5u aXRcZGVmdGFiNzIwXGZvcm 5acDNgERutk3XqBKD2fnU8 sCDcmDGhZEZlFcI4TFqhEX 6bom38IYBbGGD0rg5afNPa lEteotTkpWBvLOfwE1TfQE Uaw363WEErK5JtUHJjv7T4 rxOaHpHmXGUvxCE7lkG2AC EpIE7atllwa9jyKPwxONrk SZDegfJ5lnQ8ICHagFWeX5 PmiP8aIDXxZU9ofehbn9jj BYY9QDvkMQTiRDZ4VtZbWF Qwb1Qkyzj2CvFgq7OfbFRw SEyrN40xc890FGPrxeBeK1 xwbGFpblxwbGFpblxmMFxm ybC6YGSpHNaxgwuvMLFfBY blM6zgIxZeZAHotVgpHWvp x4NcHVTfTYXiVdBplILpIZ BvHzj2CQFpnBLoLQRfRoGg O1gopmdqNgWYXREkg7pwT5 gewIMGzIJeW6RoGEjmrkDn CQvjSDmwNTZyNJZ4FP0cPG QjVGPqay86 CPT Code(s) (test code f2imwUTzQVApkWZ3JzWiHD = 4322) Zcv8lzx8KzoWZxjGIhTLyb oJZhrgBcsv04wZP7cQ69VK 5jDLGsNuJ9VUVolgR6Cdi5 UROkAQJjwVKiZ157a5umw2 bfpbAovIY1gJucAGCcddzb KxE8KDrbACLchvsmGPd5RA wkARYjfQQ8QWIffCWtG8Kx IMTpQV5gujh3JCD0PYyaZV IyElM4MMKooWCfFYNkfQdc SJhhf809YLZ0XuEyCSQbcn IuwCflcX8qVmUfMQW2KWGu IKh9WXGrpz4= CLINICAL HISTORY (test l9buiDKaBXUucYQ7OuAwHJ code = 3356) Fdt6ghx5VviKYqfYSuRCyb qVLrysNiqu09cDR3zD06PM 5vEVChWwH3SVLbfwX8Tmd7 QQQgLBGokYDiW059k1bnn4 smqvXauTQ7JDVmYQAlO3Va NC4hDMBwmMYiP20ixRLcZB H1VJXhICHdgAFvWIWnOGU9 FZOqiATjX9zwAVWlAZ3rbp goNXpgHDwkUSWiyWR6LFMl vAPhR1IoZSZwKOngFFShvi h1FuFdFg5qqXYmiMinPLew YXJkXHJpMVxwbGFpblxmcz WcTPTzLPRNsf0gZOPmLcan mOXtB8teLW6bsZhnBYP7er WdRRZhFkxtMUQcga0pIUTn UpgjqWNdW2akVU4igOysRW P3gXQwFQWtft0= GROSS DESCRIPTION (test k3xgkLEjSEYywZKXJWKlPi code = [id number]) cdupJrOAFhePCpD8Tsrnyk ZMkcCS0kQY7tcEgngDPufF WnXX8PVDCyFnIzMZWszHRc muVwTcQaTONhgCPgzZG6FF YdFJ9fnqxzUMkvOLsgEFAo yxQ2AGHuiCSiL3KmMOSrXP 3uvhqjQGE9MLofzR9tjiHR TjufYt0ovBRlgSzdMwWuOx NoYXJzZXQwXGZuaWwgQXJp EHp1xX9LDamwA26qk0D0Pp e8BAOiFBYvK3WnGY7fLVGg xQDkK02IWvuvFLJ2LDXAUb ehFUZqQJ5Vp0lnUJIrbCOd GYM4OShbqOMtVZEnIHKrLY q0ENQhQAlieERjCX8rnMul IttsvOmdg9VbaCJbZAyaQU XrYVJbVFedKECfCN6LKdHp XLpNSyleJClgAvO7UMa2AX KEZlCgXaCxNkmqWLV3MDpo LGg5JWy5QFxKFlE2VFB3DS JpEOzvFQJxFuafYZi5PRRo XFxmIEFyaWFsIFxcZmwgXF vqM27hwGnyrJ4aMO2dOT8t rBIjFCQukH4qCH4hS3EhhO 0uXHBhciANClxlcGljTmVz dERvYzEgDQpcbHRycGFyXG xpbjBccmluMCANClxsdHJj aFxjZjFcZnMyMCBSZWNlaX QwOFOatzJci7DbPNdgozPe YWJlbGVkIHdpdGggdGhlIH SqjZgmvkYmY5Q4igAeYF1l ZQEeHTQaA1GwGUBiM37yCB NjeR9vDAQcRI7mVZq9BDLm WUFyNlazhJ5kuGKvASJpqT 1oNHBfB3AtIaOkj10bzUP7 dzUoNsGxRMIxua5njM5uAK Wozu4tZHLrg0M7BGVpz4O6 DEYhZO40ZFnhJQ3bQSbkKM 4xIGNtLCAwLjYgeCAwLjMg cGGqPpWdX91kCePkMAkmGS JtMBYdyFZdKDikVCE5Lk3p qVRjLIGlzsH2b9TtIIujZE KuHpcbXGCoGCddxMCmTS8Z XIOxSHmpjbBwJJ9UTXYuSM fsJWYfgLJUHEK8CX8qLIhl hQDgwgesDTFoC5JcJ8Gkay BkoUFnNUFvwnHfz1psTLZ4 XHNsbXVsdDBcZnMxNlxwYX I6VAn3HQsvTCSvE7VrZ4Re PVhzMUX6OXNyTxFpGFPyBI AUJeAgRvFvOqS5Alg1TrWb JWh3UWaeX3KQIGLkCBJ8RF G6SFP7QtY4LNu2LRZVTl3e GMUgKRY3JvR3GTK3GoT3VJ xcdCAyIFxcZiBBcmlhbCBc ZFPbWOylqeO5QBGfMVWkmS hxkU4eWz6cOK3usNPdIAJc xE3jZP3bLaefkBAhVPGdIL 1agW2xMzqnMMNbIClsLDWu I95ow1EKp4BqCM3HRCc1gm EnwkiosE1gJHFtfxNfPWxk gJSyJ7uvX0LiYWLrJwTzQz JtCKx1KFGjqU0wMh9buJWo fD6wbNQhKCxtMHM3sVCeGQ NuZXCgXRNqCS69CHxYIDVs bmFtZSwgbWVkaWNhbCByZW NvcmQgbnVtYmVyIGFuZCBc kJuuMxUxBJo9E0RluLihIO Ija7efyn6tmKbryWBff1Xx pcIhvwhxFPEyGCStd53ynU N8vzRzTgAqlFk9rASmTMA7 MH9stWuklkudhQWvYWo2tX MgIZQvReZasZlss2CuHSdv LjQgeCAyLjEgeCAwLjQgY2 9guO3bROqnimEhJCFcNF6a SXJsSCNojRFouV1yqdKzyz MuwNUxxFM5DCHmeY4yfP52 otUnctAPOJ3hzGVpQR1DKI BhciANClxjZjBcZnMyMiAN ClxwbGFpblxlcGljTmVzdE NsJwPlrArotY74FHQcpSRu SQZ6ZY4gOZTfixrfOYCxVU ToNDV2MBozkA71hPVkORSe HOOlzNVuhR2Tv3acWJPvzC GzAFJ6STarkGPyRQVwCCNw LWogHcUcH0JPRMMvKyNxOI M3GJMmNAv6HUv1ZJ9JEjAo PVCsKEBaDgF8NYHtBIh6UK mvHY5GRHG3Kiw0IOA8GRJ8 NTMyOCBcXHQgMiBcXGYgQX MgOZxyPSqjyBQxEY3nbClg bdM9RQYsQQauQODpRLKbgY ieNHQUa1xaquKtRHZqW1m1 V4HyQ4SrHBdpCb9woCOwZV 2FVJItaEUCQCE8LD6cGOPO ClxsdHJwYXJcbGluMFxyaW 9zWT6VPCu7dnPhRMDwETym wxClUNGzR1ZnhuWtGZvySZ Oqae3oyDumHMbbSyMvOWJf v7q6kEH5lTLezVO7wEKmhP maUvHaDX0qsQGbEM8mFLkv OWffopRxg3PoJU13hQTwzn ZgtdCbKIL9BaGrRJztDLWv k6o6gNhiR49ka24iucaqhB BoIKIuXV5zbJ1uTiEjgqGe I67mv1rccJCnn9YlgUImoF lwbGUgdGFuLXBpbmssIHBl QGAaI1FyCZPpWEUbi6Q0RA Gxn5M8UKVpKf26EAybSc5u FMbdKL02FJFiMFniIYYfX2 BwV7T7GPywSYSDcAHmo5Mb L1gaUQ6dwOMkr5GdyYc9aN MkOUhzQXDwvZ1nhF6zSmHo XHBhciANClxwYXIgDQpcY2 WtHAYnHsByWGgfkSkviU7i QDFlF27fj3GMi4UpPFUkBI cue8hqgSwrx6HfgPFuUMoj GPBtrFEbLRxtkQ1sOsAul9 obtBo8DNnwuqH3OXQdok2J DyqpXagmiUndw5LitXUcII vjAEFtNVCsTDylNMHqNA0M WwRzINjKBagyZAdnUdA5BQ d7FKVIZlEpMyWxHziiNGE3 EmBnPBi6OXw9ZRvJTpZ1GD J1CZIgHuWxZPQuUxvfPHk0 IDIgXFxmIEFyaWFsIFxcZm wmBIixY68iMqTdLnqomXVz psWJRsRYv5k6iDqaB84og1 5aSYFZpxCwe3WtrrYuYzjg ZDEiAMubRENgE54iv0XJr6 JjAO7BZEv1yvVuhqqqvC1r PCFtkbJvTQainFIbM2mpE0 DvRTFnDtAdYvWrRKi5XAGe gV2oHg7wxYKonD0gzVQjHR boLYV7oSSwEPMiQDYyVYQf SU93IChMKFNcidSlEYhdvC VkaWNhbCByZWNvcmQgbnVt YmVyIGFuZCBcdTgyMjAgXC p1R2ZpkVldTIDkd7mptk27 koCzx0EdxhAwYSFtyGRzUD 6pAxikpL88AMXyNQGdCHEf cUnoZMtbSwLklpQnS72jo3 dtjXEqb9ZlsBVzaLnrxEOa dGFuLXBpbmssIHBlZHVuY3 ZdJKRcNZYpo4T2YKQop1K2 PWJiXr8kXGeuZi1rTBjxFW 47LIBcGTvmJZCbL6MiL4F6 GIfqFUEKxZHwk2VcJ1xgMH 3peULqc9DgvNz6iBPaOEkb TMXsyG7pwR7tYMVbUUKxGL QnasUTDrrfJSHzXHrTb7Wt rQwqJMKqW4h3c49yI7tcrS XeIJFEYCH0jBYxssLerUNd XX9EKEAhggMZAfgbJzXmAg MyMiANClxwbGFpblxlcGlj EcExoYOlOlJolZhslG66XK PpmMImBAB1NA1hGXPtyuzt JOBpVBAjJDL0LUjezU93kO QsJGIqIGKjyUArjS9MEOYc LFA2LYaecG70sOOnOW2ELI VkAER2ZCGqfRSaAJK5RV2k fQ0KfQ== MICROSCOPIC DESCRIPTION q0xexRXcNABsvLC8WnBsUI (test code = 3371) Cwy3ukb4UwpLJpbGRaENci mNPmqjFvjx25iGZ5hL07AV 6wORQrAwP8WVPavsR0Emh8 ZYYqMRMdjYKnB673v2etr4 bsfaFkoEB7qIomRFCzoiwy FeH2ERleSEUqkefiQVh1XY npFLCyiVH3CYVzhYHzJ3Yx ZNYtWY7lngy3VMD6LZvnQA ThXdN2KXQfmBOpTJMgtRmi MQyci498BMB7PtOaQVGuia PywLerdI3mHaFmBGTTZWLi b0ZgFOIlPHPtdumbUZYhAP Bhcn0= [facility] [id number] 09:50:09 Test Item Value Reference Range Interpretation Comments Case Report (test code Surgical Pathology = 104) Report Case: [id number] Authorizing Provider: Angela Loco Collected: 07/03/2021 03:04 PM MD Brian Ordering Location: [address] Received: 07/06/2021 09:08 AM Service Pathologist: [...] clip x 1 DIAGNOSIS (test code = [id number] 3220) FuZzEwMzNcZnRuYmpcdWMx IHtccnRmMVxlcGljOTYwMV wyogRnDFLtlUQiO5Wmwmad EFqzFH8tMV3hjDymiKDkeP NgTJQfHhRbi9pft547kDAe p3ivZLAZcujovXb5mLfrG9 6mz0H3QxvtD14bqBIfWQO6 PRMmZDKaxRBtGIPiIEP0RP AiqRJsL8joQUZtFW7uijoo NAhvKUayJGBfeKO6EINaiA RxW3HuWRNdVVtyKETgufo1 YdQjLz3gjYDuyHmcRPhlHG FwWYYqBZllCLNiRjWlQS2u A01JD70pMBFHK7HMZWUHLY jEDTKWXE8IB6m8TMTkahDo LSAgVFVCVUxBUiBBREVOT0 8ZODOpgpglOPWfUw0kJ32F G44kXYKQB8kLP0FNB0IPLK dCTtTOO7vQEFczYiuWZQLQ WsipKRIkVH0cXZ5PBPLZCM bMVUTDHAiMJQ1HBhABAoST CGSBXJMWKRKNFY3MAFEbsR FyICAtICBORUdBVElWRSBG P0OpVMcIDC3TYhFOQXXDWG JQMCPLXMEtU8QbBBRJPMqX QE4HYWhpRMEwyLUsQLZlZF PSKM7LGBADBHhJMK4ET5EA OaVBNjsbRW2KWKTiNQGOX0 BTWTpccGFyICAtICBNVUxU SVBMRSBGUkFHTUVOVFMgT0 XmDJZLHUhIHhQEVTLAB29D XHBhciAgLSAgTkVHQVRJVk YbSv5JNGeDO9plT8GRIZHi MEuAKOnUD5uBZU7FXB7CEN oAJkOOI2jkxXYcUNRqntKn eCEzDPYzMGVBTD7KTPVBCz AVM4IVCgKJLSYETMmXQMVH CJ1CB7s4WQWntbDvNSYdES TXUDbTIPIvZwYIH87ZJsNF JI4XRWWDJwDWHVGmGAOXJf 3MFDypSYPwPP7aSA4MZ0XE SVZFIEZPUiBISUdILUdSQU PNLMSNA2TAOGLNOFHDSwIZ DCdMY22WPlSJEIOgco85FU L3QuJnr0H7KMR1BPZgBXAt c0qqIIIccLBeCbWlPyDfDm IlCsonuPJvOHRlIqYcz7ru i578yLNkk1aoBKEbQoW0jV XqGCJkmYRzI857INRmHFof m9edf8HfMTTzyBHqt3Y5ZY ATgrgojJa9aOxlT96ud8U1 UidiE3keVUDyRPZnK1SnUJ 3bPNUkYza1CIQ9KJS9LXLy QEYwC7BaWZ6hPGNmiWUyZD x1f6xglTwiTJKhOHC5o9cy OBklpyCnMU0iif6hnPt6m2 xjczEgRGVmYXVsdCBQYXJh A0FmlFicTl1egGf3jNjcTr alKKC6Xpx8GG2igf74qvh3 rTdxIDPheidwAhC7PQguAG FummsjPKr8PXsgYEHmrNY5 OGWxaRJhT5KcYVCqRK3uca j0BIT3OBlwOTWoRmE6WINt mUXsQLVdiNaoEUrba539LP Z9EbSjKR7oP4Eoi0K0kX7b aXRcZGVmdGFiNzIwXGZvcm 6uvNGjWCgkz5GwWZN3uqZ3 xQQziDXoMJZiUwI7DGfdAJ 6kst98TBLkDXZ8hs1wvPNr nMbsgvZilMIuUMqyZ7InRD Vhk217VHPcA0SdZQFci2L6 qnAoGgKaJVUfzPB7foM9RF ByOM0qghrfk4poEJrdEJxm YTVcpjK6ohR1TCIhlWUfE1 MqrT8jLVCiBM4pfnsnm0px BUE0VIltEXCoQBD0XxZpVQ Bxg6Vbily8UjDsj5IueNHg EReeV82ps143YAFjajYoW9 xwbGFpblxwbGFpblxmMFxm ndJ3PIUdWCxdyjgmRRRgAA gxF7kqJyHbWSNyhYyyAAxf w8MhOPXgVZCdJaCycAVsIZ EbXrv5SCBvaUEuDLRzKpNy C0fmqlpyReHFMNCom1ujV8 qvmBFTbLDkH4KeTFehriNi KUpbQQvsGBYwKYY3MB1zHM KvSMCpiq97 CPT Code(s) (test code v2eriVYcROFstVU3OlKvSO = 3357) Zyt0naz7SquUBrqMDeFLqg zBFnmaQxww36sXI6xU39SG 1vZLJiSlV3WUTlyhD4Lpf9 ARDdSUHjvDSeE124i1apj2 uuwcSutAL3iJbvLKJjtkeh SaV6ZVjiCJInosfySVm1MJ kjFVJdlDW9ADHvzHQuZ4Jw XMOfCO8ilfw8QSF9YAbpSL RlIsD8GFXwyILwCUWqdIeo PBote948TAY2AbLaVYIijg XpuPullA7aUwQxJKR2UUYt TOn8OAAbrj2= CLINICAL HISTORY (test e7xmzHLbWKSfdKO6QnNuML code = 3356) Tcd5kjl7BhvDQcwTZxXUfz aVBzgyTnpx99uMF4zI86MO 3kEDOeMjB8WABnitT5Del4 FAXrJSKcpPEqF002w1ylr5 gixwRuaMI0BPTpLDAzE6Yn PL6mVTZscZUkU49xpECsBG B7YXSxDMRjkFXyLLOqWVG2 DJPyoABdX0zeWCTyEL8mly gjOMpaXXhaBLXlrWO0DJGs hTKwS6ElWBIuLFjbVXBtsu g2VxAjSi7wpOSmvBzuAYbv YXJkXHJpMVxwbGFpblxmcz FuJGPbQSVMas6vRNClSoip gAHvB4fhNE7dcSmzDDZ4sy EmSRUpFdrwXVIcom6qYMXb CdwpzHCzK5fgBT2zpKitLS T9rPEpKYAzgx7= GROSS DESCRIPTION (test v9zyzOVgUUPlbFRMNNThMi code = 6535370883) tszjOrTUUigYYkV3Rnfmab OJroVB1fYI2zgExawCWkyR QjOV6HARPhGlVgOZQzzWQx vzEcVjStQXTiuCDdcOJ1YL DtNV1rhyttBMqpWUkwMJMy kwA3KEEdqETbL7FtTEIqSE 3onruwANV1DYkhvB1jviVZ CwjyEx8gvBHiuVxqRrZiIl NoYXJzZXQwXGZuaWwgQXJp BMa8eS5GSopbK15fb0V1Cl e8MOKqGHHhT4KkNP2nGJTl jMAmZ13UYizfFNH7KPPTFs feSLLyHP2Id5ncKTSpgRLg INF2IPdfgNSvQTMeZIGpWF l9XHDsFJgggDLiCQ6paRkq QsyezJsoi0CyrGMvYZuqLB HlAGCdUYhqWHYbGW3QBuIq PMaKZqmrHLarZwR0KXv6KS YVClCdBnTeAarnCSD7ERks XTq2ULy1PLeTMfO8FXK2PY LoVDygDALaHvjjSNl8EJSf XFxmIEFyaWFsIFxcZmwgXF niB53wvOammQ0tWJ4aNR9v hNRjJCUxiD7fQI4xD7RxyV 0uXHBhciANClxlcGljTmVz dERvYzEgDQpcbHRycGFyXG xpbjBccmluMCANClxsdHJj aFxjZjFcZnMyMCBSZWNlaX SrSUVbnkZmh0JpYZpovfHn YWJlbGVkIHdpdGggdGhlIH YslPkeieSkQ0W9ksHfYP6l HYNrPVZaU0GyBYNnK30rID RmrL7vYKMwNT7mTZn8XREz WCPfJflvhD8tbIPiCGIqzX 3sWAKvG3PvCpZrc05auHN6 hcGeReXvYQVymj4vgK9xAV Ufyi9lUSJbq4A0OUEds6B5 SWEbEZ39UXftQK2pFOxsXT 4xIGNtLCAwLjYgeCAwLjMg wNDePuYaG34nJbZiHGzbVP NxELGboEEpMRfjBAC1Py1p vNRrTOTqjjX5i6CxZFqcOJ PdRtpoBERyQOtmrRAeED6M MNSgIZfdggNvQU2FIOOwWB snIIFdgMCZEQU1HO1kWDaa tJYdyepkCOAaZ6VcM6Lvhr OryYJpDNVtmgVwb3omGPQ0 XHNsbXVsdDBcZnMxNlxwYX Z9MXz0EDniUQShN6ZrS9Le DKqbDTR1WGTxGcXyZTLzYN RKPkPfIdUcGfL9Tcg8VuWd MRg2UKpxW0WQCOZtFQM1GD C4DWX2GrO3RBf9TIOTCe7u MELyALM9KjO8BNK5EuS5ZS xcdCAyIFxcZiBBcmlhbCBc YQIlPPgzxpF7UVZsAABroP evsL3vCk9xKO3jgBJuZBEc lK8dWD9hTyowxZCzRISlLR 9vdR2kIktjIBInVQvbGHMy X04bb0QIm2CoKF7WKUb0fd EqoxrqhO7nOOObgkEhZQdc fANoY5hiH7HaLHJnExLqRi YpTLd9RPFkxN0xMj2lyUJw mK6miOSlULrgHCX4tUXaBO IdBBUtBVImED91DClZOLUu bmFtZSwgbWVkaWNhbCByZW NvcmQgbnVtYmVyIGFuZCBc yLplZlCdZGz5D1RvkFxoTW Igh3qluh4wtWuokTHrh9Sa fkNsodrkECOdKWVpz20txI C2hsOvSkLwsNe3bWAbRYP1 UF3igVdcrediiWQwJLt0tJ VbHDViLzFgfEjgk2IzLRdt LjQgeCAyLjEgeCAwLjQgY2 9hcD2nOVaiedExJQDzFS6e ZXHfMMExdEAumN3fvyTyiw MsrYWfiMM0OPPioY9xjB40 liBucyGFVG1vaBFiTD8AZN BhciANClxjZjBcZnMyMiAN ClxwbGFpblxlcGljTmVzdE DtCjZkmQrwoX65OVXvdCZd QJH9BM7vZVEmhnrnZAVyLZ XeMWS6KQzkuM54tPXqPSTt ZPMdyHOhjX0Po4bvTVFzlR HiJWS4EIlqyWKsXOSjTJEu IEseRdTdF1THOKGyDkBcZJ A9PFLpLZm8EPy5MH2RBgNf BVMwMDEmHdJ2FUBbTVe1ZE flGS5HMCA5Pip7AIU5EFX5 NTMyOCBcXHQgMiBcXGYgQX ReGUjzKOzqgNPxRQ5skClo qtZ6BVCbDOveLPZkMICwsK liHVVLs3oyvhMjPNDbZ3h8 O2ZwY3TyJGafXs4poRGxTJ 9RBBXujROOPPJ5EI6rSPIE ClxsdHJwYXJcbGluMFxyaW 1iQP6IXOl1jnFqIHUuGSxj vpYaMXXfJ5YpesJgDGmkOS Llwt5wwFjzYJyoRdZgQZVp u9a9fOY3pWByhKZ9xCQjhL dwDqYvVD6qbPIiNP7pZWxc IApyamNxk8BjVH73dGIjwi ZfsnJmMOP9SeLgSQheRLDl e3n6oKuaU17vd28ztttfaR ZcXMSiXO0twU1hWfKeavAl H20lt3hxxDGpo3DttLVrqK lwbGUgdGFuLXBpbmssIHBl VBDeP6NzHMZeSVCmn8K7AD Sgm8Z3ANPxGf83USzaVt7p GJeySJ86RXMlQLigLOQkJ0 DhI5E7ZMkvADMAtMZmy6Fm B0uvKP9dpXGgx4QkxVq8oU UeKZdlIHCrdG2ecE4bUbHh XHBhciANClxwYXIgDQpcY2 WeWXIoGdLxYQbwjWhzyF9g LXWfC66ds3ISa8GoPHGgOS xwz1bocSsib5EucNXrBQxm EOMbdJSyCZnabF2nUfXkj2 xpgRx2NDqsbhQ6ANQeog4Q EjwiRompmAhgi2TgvGEuMA rwFWFlWAIvACrfAVYhSP2T EoRbGFzAMwfjTDegGrX5DY s7FJBAQjQbKxUcHnyrGSQ9 HjQxBCd6BVr4BKcUVpP1MQ B5EAQiLnGtSVXlOcmzIUm6 IDIgXFxmIEFyaWFsIFxcZm wwOTyoI56lInVyOruohJEu eiDOXmDZb4c5rAkwZ87hg6 3eXCCPvwBjc3LrvbYrYrgg ATSgMHfbQLMkO01ny7MWo4 ApVX9XWXj4zpPagiquoW1y DQBfhgKwTUnosWVsS7xlD5 TfAXGjZrDyUfNjPNr7ENEf xI1qHi4vmRNfxS9hfFXhRQ mqZJH3rWCjIMPkBPMoPTGb YN09LGjIPMEchaWrAGtzxJ VkaWNhbCByZWNvcmQgbnVt YmVyIGFuZCBcdTgyMjAgXC y0X3EguQzkLGQke3vcxp69 vcShz9IwdwMxIJVbiHRuSH 8cRfjrhI41YQGoTZHrXRQj tOzmNJrhRiQmmkGfO78lb1 kzgTYhs6AviPKphAtaeEEw dGFuLXBpbmssIHBlZHVuY3 RmPHKhAGYbr8U6CJYwx6C1 MESpJe9hNBjeLf4aFMvzFV 48TPUuNBfuQDEzP5RkR3O9 QZikAJYArVNgd0ZxC3ruKT 1woWLmo9ZvaDe7fSVuRYmx MYJeaR6alY5vSXXhOTJfIY AuviFLFavzYQHcTInGo6Tg iAlvPLTiA0j4x09rT3iefF JyUMJKHYX8lNVtukBqnXOj OT9MUHJsmiDXQxutYuSwKb MyMiANClxwbGFpblxlcGlj AfYjtLXvLsCakIfdbL62JE IrgOMzUXV6HP5cGSDnmcka VYDuRBJsSFD2QMxixP30yM JlQUYoJDXfhEDszY4XFEKq CLZ1MTubmM15iANgFQ3OMU EjUMY8SEDtaWTnGLE7CE9f fQ0KfQ== MICROSCOPIC DESCRIPTION i0ysxXRlQMWdaZY3GoYrNZ (test code = 3371) Fim8dhb9VutSCepTSvSCxt tGMfqeAwzq85gEE5gC08QB 3kOZBzCdL2XIXisgO5Uys3 XQXvNIEaiWKmV113w9qwu1 bwhyPraKQ3nGkmDOShbxxg RtH3KSpyXIMzmbimVRs9VN njRSGpnAS6DJDawPKrW0Ao RGSpFN9sric0MEW3MQmsHC BaMgQ5LVYufQXeOTZjzRza XJvvl065TKW2UnNjTKYpkp BpbOazaX2wWzFqFOCFHPRb m8MvHYCoFEMmxcscHQRjJX Bhcn0= [facility] [id number] 09:50:09Surgical Pathology Report Case: [id number] Authorizing Provider: Angela Loco Collected: 07/03/2021 03:04 PM MD Brian Ordering Location: [address] Received: 07/06/2021 09:08 AM Service Pathologist: [...] OR MALIGNANCY Signing Pathologist Direct Phone Line: [phone] signed by Michelle Fernández MD on 07/07/2021 at 9:50 [id number] deficiency anemia, unspecified irondeficiency anemia type A. [...] patient's name, medical record number and "polyp, sniyg-idcqpavpoa-8 taken by hot snare, clip x1" and consists ofmultiple robert- pink, pedunculated soft tissue (6.0 x 2.2 x 0.4 cm in aggregate). The specimen is submitted in toto in D1-D3.GRICELDA Andrew studentPerformed.POC- Glucose [id number] 08:45:23 Test Item Value Reference Range Interpretation Comments POC-Glucose Meter (test 92 mg/dL 70-110 : TE STED AT [facility] code = 1538) [address] [facility], 770 30: Control Technician/Techni kelle ID = [id number] for EDMUNDO BARRAGAN Lab Interpretation (test Normal code = 29001-6) [facility] [id number] 08:45:23 Test Item Value Reference Range Interpretation Comments POC-Glucose Meter (test 92 mg/dL 70-110 : TE STED AT [facility] code = 1538) [address] [facility], 770 30: Control Technician/Techni kelle ID = [id number] for ORPHEY, EDMUNDO Lab Interpretation (test Normal code = 36642-4) [facility]-Glucose [id number] 08:45:23 Test Item Value Reference Range Interpretation Comments POC-Glucose Meter (test 92 mg/dL 70-110 : TE STED AT [facility] code = 1538) [address] [place] [address], 770 30: Control Technician/Techni kelle ID = [id number] for ORPHEY, EDMUNDO Lab Interpretation (test Normal code = 51882-0) [facility]-Glucose [id number] 08:45:23 Test Item Value Reference Range Interpretation Comments POC-Glucose Meter (test 92 mg/dL 70-110 : TE STED AT [facility] code = 1538) [address] [place] [address], 770 30: Control Technician/Techni kelle ID = [id number] for ORPHEY, EDMUNDO Lab Interpretation (test Normal code = 20248-6) [facility]-Glucose [id number] 08:45:23 Test Item Value Reference Range Interpretation Comments POC-Glucose Meter (test 92 mg/dL 70-110 : TE STED AT [facility] code = 1538) [address] [place] [address], 770 30: Control Technician/Techni kelle ID = [id number] for ORPHEY, EDMUNDO Lab Interpretation (test Normal code = 15509-1) [facility]-Glucose [id number] 08:45:23 Test Item Value Reference Range Interpretation Comments POC-Glucose Meter (test 92 mg/dL 70-110 : TE STED AT [facility] code = 1538) [address] [place] [address], 770 30: Control Technician/Techni kelle ID = [id number] for ORPHEY, EDMUNDO Lab Interpretation (test Normal code = 50749-2) [facility]-Glucose [id number] 08:45:23 Test Item Value Reference Range Interpretation Comments POC-Glucose Meter (test 92 mg/dL 70-110 : TE STED AT [facility] code = 1538) [address] [place] [address], 770 30: Control Technician/Techni kelle ID = [id number] for ORPHEY, EDMUNDO Lab Interpretation (test Normal code = 41181-8) [facility]-Glucose [id number] 08:45:23 Test Item Value Reference Range Interpretation Comments POC-Glucose Meter (test 92 mg/dL 70-110 : TE STED AT [facility] code = 1538) [address] [place] [address], 770 30: Control Technician/Techni kelle ID = [id number] for ORPHEY, EDMUNDO Lab Interpretation (test Normal code = 81014-7) [facility]-Glucose [id number] 08:45:23 Test Item Value Reference Range Interpretation Comments POC-Glucose Meter (test 92 mg/dL 70-110 : TE STED AT [facility] code = 1538) [address] [place] [address], 770 30: Control Technician/Techni kelle ID = [id number] for ORPHEY, EDMUNDO Lab Interpretation (test Normal code = 38161-1) [facility]-Glucose [id number] 08:45:23 Test Item Value Reference Range Interpretation Comments POC-Glucose Meter (test 92 mg/dL 70-110 : TE STED AT [facility] code = 1538) [address] [place] [address], 770 30: Control Technician/Techni kelle ID = [id number] for ORPHEY, EDMUNDO Lab Interpretation (test Normal code = 27299-1) [facility]-Glucose [id number] 08:45:23 Test Item Value Reference Range Interpretation Comments POC-Glucose Meter (test 92 mg/dL 70-110 : TE STED AT [facility] code = 1538) [address] [place] [address], 770 30: Control Technician/Techni kelle ID = [id number] for ORPHEY, EDMUNDO Lab Interpretation (test Normal code = 77916-6) [facility]-GLUCOSE [id number] 08:45:23 Test Item Value Reference Range Interpretation Comments POC-GLUCOSE METER 92 mg/dL 70-110 : TESTED A T [facility] 6720 (BEAKER) (test code = YUDY [facility], 1538) [address]: Control Technician/Techni kelle ID = [id number] for ORPH EY, EDMUNDO RAD, CHEST, 1 VIEW, NON [id number] 07:59:00Reason for exam:->post-opShould this be performed at the bedside?->Yes [facility] : 1955 Sex: [...] changes. Additional findings: None. Signed: Bayron Cosme [facility] Verified Date/Time:07/04/2021 07:59:51 BASIC METABOLIC [id number] 06:24:45 Test Item Value Reference Range Interpretation [...] S NOT APPLICABLE FOR DIALYSIS PATIEN TS. Control Technician ID - [id number] 06:15:51 Test Item Value Reference Range Interpretation Comments MAGNESIUM (BEAKER) (test code = 1.9 mg/dL 1.6-2.6 627) Control Technician ID - [id number] 06:15:51 Test Item Value Reference Range Interpretation Comments PHOSPHORUS (BEAKER) (test code = 3.1 mg/dL 2.3-4.7 604) Control Technician ID - DBCBC (HEMOGRAM ONLY)2021-07-04 05:44:21 Test [...] Not Detected, (test code = Negative, See 51575-7) external report for linked test SARS-COV-2 [facility] PERFORMING LAB (test code = 94714-0) BRANDI (test code = Negative result for [...] of the Act. Fact Sheet for Healthcare Providers:https://www.J[employer]R [employer] ideJule Game.[employer]Gene/sites/default/f radha/product/documents/F act_Sheet_HC_Providers_L dps_QIQZ-DwN-8.pdf Fact Sheet for Healthcare Patients:https://www.[employer] del.com/sites/default/fi les/product/documents/Fa ct_Sheet_Patients_Lyra_S ARS-CoV-2.pdf Performing Laboratory:[facility] [place] [address] [facility] (Asymptomatic ONLY)2021-07-04 00:21:04 Test Item Value Reference Range Interpretation Comments SARS-COV2/RT-PCR Negative Not Detected, (test code = Negative, See 89678-8) external report for linked test SARS-COV-2 [facility]IC[facility] PERFORMING LAB (test code = 01325-3) BRANDI (test code = Negative result for [...] of the Act. Fact Sheet for Healthcare Providers:https://www.[employer].com/sites/default/f radha/product/documents/F act_Sheet_HC_Providers_L ebz_MHCZ-YkM-3.pdf Fact Sheet for Healthcare Patients:https://www.[employer].com/sites/default/fi les/product/documents/Fa ct_Sheet_Patients_Alicia_S ARS-CoV-2.pdf Performing Laboratory:[facility] [address] [facility] (Asymptomatic ONLY)2021-07-04 00:21:04 Test Item Value Reference Range Interpretation Comments SARS-COV2/RT-PCR Negative Not Detected, (test code = Negative, See 64801-2) external report for linked test SARS-COV-2 [facility]IC[facility] PERFORMING LAB (test code = 94658-6) BRANDI (test code = Negative result for [...] of the Act. Fact Sheet for Healthcare Providers:https://www.[employer]/sites/default/f radha/product/documents/F act_Sheet_HC_Providers_L mpu_SCVV-ThS-8.pdf Fact Sheet for Healthcare Patients:https://www.Mob[employer]gen/sites/default/fi les/product/documents/Fa ct_Sheet_Patients_Lyra_S ARS-CoV-2.pdf Performing Laboratory:[facility] [place] [address] [facility] (Asymptomatic ONLY)2021-07-04 00:21:04 Test Item Value Reference Range Interpretation Comments SARS-COV2/RT-PCR Negative Not Detected, (test code = Negative, See 20482-1) external report for linked test SARS-COV-2 [facility]IC[facility] PERFORMING LAB (test code = 20582-6) BRANDI (test code = Negative result for [...] of the Act. Fact Sheet for Healthcare Providers:https://www.[employer]/sites/default/f radha/product/documents/F act_Sheet_HC_Providers_L gnm_FFMF-DkA-2.pdf Fact Sheet for Healthcare Patients:https://www.[employer]/sites/default/fi les/product/documents/Fa ct_Sheet_Patients_Lyra_S ARS-CoV-2.pdf Performing Laboratory:[facility]/RT-PCR (Asymptomatic ONLY)2021-07-04 00:21:04 Test Item Value Reference Range Interpretation Comments SARS-COV2/RT-PCR Negative Not Detected, (test code = Negative, See 19771-1) external report for linked test SARS-COV-2 [facility]IC[facility] PERFORMING LAB (test code = 33854-0) BRANDI (test code = Negative result for [...] of the Act. Fact Sheet for Healthcare Providers:https://www.[employer]/sites/default/f radha/product/documents/F act_Sheet_HC_Providers_L ubj_XIDX-YzP-3.pdf Fact Sheet for Healthcare Patients:https://www.[employer]/sites/default/fi les/product/documents/Fa ct_Sheet_Patients_Lyra_S ARS-CoV-2.pdf Performing Laboratory:[facility] [place] [address] [facility] (Asymptomatic ONLY)2021-07-04 00:21:04 Test Item Value Reference Range Interpretation Comments SARS-COV2/RT-PCR Negative Not Detected, (test code = Negative, See 80467-2) external report for linked test SARS-COV-2 [facility] PERFORMING LAB (test code = 58293-8) BRANDI (test code = Negative result for [...] of the Act. Fact Sheet for Healthcare Providers:https://www.[employer]/sites/default/f radha/product/documents/F act_Sheet_HC_Providers_L caj_KBAF-JcB-9.pdf Fact Sheet for Healthcare Patients:https://www.[employer]/sites/default/fi les/product/documents/Fa ct_Sheet_Patients_Lyra_S ARS-CoV-2.pdf Performing Laboratory:[facility] [place] [address] [facility] (Asymptomatic ONLY)2021-07-04 00:21:04 Test Item Value Reference Range Interpretation Comments SARS-COV2/RT-PCR Negative Not Detected, (test code = Negative, See 83144-0) external report for linked test SARS-COV-2 [facility] PERFORMING LAB (test code = 58771-1) BRANDI (test code = Negative result for [...] of the Act. Fact Sheet for Healthcare Providers:https://www.[employer]/sites/default/f radha/product/documents/F act_Sheet_HC_Providers_L dms_AXKN-FxP-5.pdf Fact Sheet for Healthcare Patients:https://www.[employer]/sites/default/fi les/product/documents/Fa ct_Sheet_Patients_Lyra_S ARS-CoV-2.pdf Performing Laboratory:[facility], [place] [address] [place], [place] [address]ARS-CoV2/RT-PCR (Asymptomatic ONLY)2021-07-04 00:21:04 Test Item Value Reference Range Interpretation Comments SARS-COV2/RT-PCR Negative Not Detected, (test code = Negative, See 43873-2) external report for linked test SARS-COV-2 [facility] PERFORMING LAB (test code = 07341-2) BRANDI (test code = Negative result for [...] of the Act. Fact Sheet for Healthcare Providers:https://www.[employer]/sites/default/f radha/product/documents/F act_Sheet_HC_Providers_L vwb_EUON-OgY-8.pdf Fact Sheet for Healthcare Patients:https://www.[employer]/sites/default/fi les/product/documents/Fa ct_Sheet_Patients_Lyra_S ARS-CoV-2.pdf Performing Laboratory:[facility] [place] [address] [facility] (Asymptomatic ONLY)2021-07-04 00:21:04 Test Item Value Reference Range Interpretation Comments SARS-COV2/RT-PCR Negative Not Detected, (test code = Negative, See 42539-8) external report for linked test SARS-COV-2 [facility] PERFORMING LAB (test code = 49305-8) BRANDI (test code = Negative result for [...] of the Act. Fact Sheet for Healthcare Providers:https://www.[employer]/sites/default/f radha/product/documents/F act_Sheet_HC_Providers_L vve_JVOX-EjB-8.pdf Fact Sheet for Healthcare Patients:https://www.[employer]/sites/default/fi les/product/documents/Fa ct_Sheet_Patients_Lyra_S ARS-CoV-2.pdf Performing Laboratory:[facility] [place] [address] [facility] (Asymptomatic ONLY)2021-07-04 00:21:04 Test Item Value Reference Range Interpretation Comments SARS-COV2/RT-PCR Negative Not Detected, (test code = Negative, See 96119-4) external report for linked test SARS-COV-2 [facility] PERFORMING LAB (test code = 66389-1) BRANDI (test code = Negative result for [...] of the Act. Fact Sheet for Healthcare Providers:https://www.[employer]/sites/default/f radha/product/documents/F act_Sheet_HC_Providers_L ltv_BAPN-BtO-5.pdf Fact Sheet for Healthcare Patients:https://www.[employer]Gene/sites/default/fi les/product/documents/Fa ct_Sheet_Patients_Lyra_S ARS-CoV-2.pdf Performing Laboratory:[facility] [place] [address] [facility] (Asymptomatic ONLY)2021-07-04 00:21:04 Test Item Value Reference Range Interpretation Comments SARS-COV2/RT-PCR Negative Not Detected, (test code = Negative, See 33932-1) external report for linked test SARS-COV-2 [facility] PERFORMING LAB (test code = 86291-8) BRANDI (test code = Negative result for [...] of the Act. Fact Sheet for Healthcare Providers:https://www.[employer] idel.[employer]Gene/sites/default/f radha/product/documents/F act_Sheet_HC_Providers_L izm_EUHD-IcI-6.pdf Fact Sheet for Healthcare Patients:https://www.ankur del.com/sites/default/fi les/product/documents/Fa ct_Sheet_Patients_Lyra_S ARS-CoV-2.pdf Performing Laboratory:[facility] [place] [address] [facility] ([facility] & REF LABS)2021-07-04 00:21:04 Test Item Value Reference Range Interpretation Comments SARS-COV2/RT-PCR (test Negative Not Detected, Negative, code = 9966425) See external report for linked test SARS-COV-2 PERFORMING LAB [facility] ALICIA (test code = 4783004) Negative result for this test determines that [...] of the Act.Fact Sheet for Healthcare Prov iders:https://www.[employer]over.com/sites/default/files/product/documents/Fact_Sheet_HC _Paiyaxetx_Nggv_GBBK-XvA-8.pdfFact Sheet for Healthcare Patients:https://www.[employer]over.com/sites/default/files/product/docume nts/Hwnj_Heroy_Inxrffwr_Kotj_MTZZ-LxI-0.pdfPerforming Laboratory:[address], [place] [address]QQRM-PVEBTHD METER 2021-07-03 21:29:18 Test Item Value Reference Range Interpretation Comments POC-GLUCOSE METER 169 mg/dL 70-110 H : TESTED A T [facility] 6720 (BEAKER) (test code = [facility], 1538) [address]: Control Technician/Techni kelle ID = [id number] for Co rtez, Keyla POCT-GLUCOSE [id number] 17:51:28 Test Item Value Reference Range Interpretation Comments POC-GLUCOSE METER 110 mg/dL 70-110 : TESTED A T [facility] 6720 (BEAKER) (test code = [facility], 153) 10715: Control Technician/Techni kelle ID = [id number] for OR EDMUNDO BOWIE POCT-GLUCOSE [id number] 16:18:01 Test Item Value Reference Range Interpretation Comments POC-GLUCOSE METER 78 mg/dL 70-110 : TESTED A T [facility] 67[address] (BEAKER) (test code = [facility], 153) 28286: Control Technician/Techni kelle ID = [id number] for Terr hakeem, Sarwat POC-Glucose [id number] 13:43:00 Test Item Value Reference Range Interpretation Comments POC-Glucose Meter (test 82 mg/dL 70-110 : TE STED AT [facility] code = 1538) [address] [facility], 770 30: Control Technician/Techni kelle ID = [id number] for RENETTA STEARNS Lab Interpretation (test Normal code = 11299-7) [facility] [id number] 13:43:00 Test Item Value Reference Range Interpretation Comments POC-GLUCOSE METER 82 mg/dL 70-110 : TESTED A T [facility] 6720 (BEAKER) (test code = [facility], 153) 07588: Control Technician/Techni kelle ID = [id number] for RENETTA STEARNS POCT-GLUCOSE [id number] 08:55:17 Test Item Value Reference Range Interpretation Comments POC-GLUCOSE METER 85 mg/dL 70-110 : TESTED A T [facility] 6720 (BEAKER) (test code = [facility], 153) 88564: Control Technician/Techni kelle ID = [id number] for ORPH EDMUNDO MALDONDAO RAD, CHEST, 1 VIEW, NON [id number] 07:19:00Reason for exam:->post-opShould this be performed at the bedside?->Yes [facility] : 1955 Sex: [...] Conteh Verified Date/Time: 07/03/2021 07:19:27 Reading Location: [facility] Radiology Reading Room BASIC METABOLIC [id number] 04:12:43 Test Item Value Reference Range Interpretation [...] S NOT APPLICABLE FOR DIALYSIS PATIEN TS. Control Technician ID - RAKAN [id number] 03:43:29 Test Item Value Reference Range Interpretation Comments MAGNESIUM (BEAKER) (test code = 2.1 mg/dL 1.6-2.6 627) Control Technician ID Bassam BLEDSOE [id number] 03:43:29 Test Item Value Reference Range Interpretation Comments PHOSPHORUS (BEAKER) (test code = 3.4 mg/dL 2.3-4.7 604) Control Technician ID Bassam BLEDSOE WCBC (HEMOGRAM ONLY)2021-07-03 03:25:24 [...] code = 754) NUCLEATED RED BLOOD CELLS (AKER) 0 /100 WBC 0-0 (test code = 413) POC-Glucose [id number] 21:37:50 Test Item Value Reference Range Interpretation Comments POC-Glucose Meter (test 97 mg/dL 70-110 : TE STED AT [facility] code = 1538) [address] [facility], 770 30: Control Technician/Techni kelle ID = [id number] for [place], MACKENZIE Lab Interpretation (test Normal code = 27566-9) [facility] [id number] 21:37:50 Test Item Value Reference Range Interpretation Comments POC-GLUCOSE METER 97 mg/dL 70-110 : TESTED A T [facility] 6720 (BEAKER) (test code = [facility], 153) 65906: Control Technician/Techni kelle ID = [id number] for NATALIA RO, MACKENZIE POCT-GLUCOSE [id number] 18:00:54 Test Item Value Reference Range Interpretation Comments POC-GLUCOSE METER 166 mg/dL 70-110 H : TESTED A T [facility] 6720 (BEAKER) (test code = [facility], 153) 27866: Control Technician/Techni kelle ID = [id number] for Ba rrera, Kayla POCT-GLUCOSE [id number] 13:01:12 Test Item Value Reference Range Interpretation Comments POC-GLUCOSE METER 169 mg/dL 70-110 H : TESTED A T [facility] 6720 (BEAKER) (test code = [facility], 153) 52423: Control Technician/Techni kelle ID = [id number] for Ba rrera, Kayal POC-Glucose [id number] 08:45:07 Test Item Value Reference Range Interpretation Comments POC-Glucose Meter (test 134 mg/dL 70-110 H : TE STED AT [facility] code = 1538) 20 [facility], 770 30: Control Technician/Techni kelle ID = [id number] for Freitas, Mariss a Lab Interpretation (test Abnormal code = 04697-0) [facility] [id number] 08:45:07 Test Item Value Reference Range Interpretation Comments POC-GLUCOSE METER 134 mg/dL 70-110 H : TESTED A T [facility] 6720 (AKASH) (test code = [facility] [place], 1538) 82403: Control Technician/Techni kelle ID = [id number] for Kayla Emanuel RAD, CHEST, 1 VIEW, NON [id number] 08:36:00Reason for exam:->post-opShould this be performed at the bedside?->Yes [facility] : 1955 Sex: [...] Boogie Conteh Verified Date/Time: 07/02/2021 08:36:36Reading Location: [facility] Radiology Reading Room Basic Metabolic [id number] 07:06:58 Test Item Value Reference Range Interpretation Comments Sodium (test code = 137 meq/L 432-088 8925-2) Potassium (test code = 3.9 meq/L 3.5-5.1 2823-3) Chloride (test code = 101 meq/L 98-107 2075-0) CO2 (test code = 28 meq/L 22-29 2028-9) BUN (test code = 23 mg/dL 7-21 H 3094-0) Creatinine (test code 3.16 mg/dL 0.57-1.25 H = 2160-0) Glucose (test code = 150 mg/dL 70-105 H 2345-7) Calcium (test code = 8.1 mg/dL 8.4-10.2 L 94603-3) EGFR (test code = 15 mL/min/1.73 [place] [address]-7) NOT ACCURATE CREATININE CLEARANCE IN PREDICTING GLOMERULAR FILTRATION RATE . ESTIMATED GFR I S NOT APPLICABLE FOR DIALYSIS PATIENTS. BRANDI (test code = BRANDI) Control Technician ID - PIAYA L Lab Interpretation Abnormal (test code = 94342-8) [facility] [facility] METABOLIC [id number] 07:06:58 Test Item Value Reference Range Interpretation [...] S NOT APPLICABLE FOR DIALYSIS PATIEN TS. Control Technician ID - PIAYA DJpnjimocw4891-27-77 07:06:52 Test Item Value Reference Range Interpretation Comments Magnesium (test code = 1.9 mg/dL 1.6-2.6 79960-3) BRANDI (test code = BRANDI) Control Technician ID - LIANA L Lab Interpretation (test Normal code = 28078-3) [facility] 07[facility]06:52 Test Item Value Reference Range Interpretation Comments Phosphorus (test code = 2.6 mg/dL 2.3-4.7 2777-1) BRANDI (test code = BRANDI) Control Technician ID - LIANA L Lab Interpretation (test Normal code = 47316-1) [facility] 07:06:52 Test Item Value Reference Range Interpretation Comments MAGNESIUM (BEAKER) (test code = 1.9 mg/dL 1.6-2.6 627) Control Technician ID - LIANA [id number] 07:06:52 Test Item Value Reference Range Interpretation Comments PHOSPHORUS (BEAKER) (test code = 2.6 mg/dL 2.3-4.7 604) Control Technician ID - LIANA LCBC (Hemogram only)2021-07-02 05:56:49 Test Item Value Reference Range Interpretation Comments WBC (test code = 6690-2) 4.6 See_Comment [A utomated message] The system [employer] generated this result transmitted ref erence range: 3.5 - 10 .5 K/L. The refe rence range was not u sed to interpret this result as normal/abnor mal. RBC (test code = 789-8) 2.50 See_Comment L [Au tomated message] The system [employer] generated this result transmitted ref erence range: 3.93 - 5 .22 M/L. The refe rence range was not u sed to interpret this result as normal/abnor mal. MCHC (test code = 786-4) 31.9 See_Comment L [A utomated message] The system [employer] generated this result transmitted ref erence range: [...] L [Aut omated message] 777-3) The system [employer] generated this result transmitted ref erence range: 150 - 45 0 K/CU MM. The referen ce range was not u sed to interpret this result as normal/abnor mal. MPV (test code = 11.3 fL 9.4-12.3 78261-6) nRBC (test code = 413) 0 See_Comment [Aut omated message] The system [employer] generated this result transmitted ref erence range: 0 - 0 /1 00 WBC. The refere nce range was not u sed to interpret this result as normal/abnor mal. Lab Interpretation (test Abnormal code = 64289-0) [facility] (HEMOGRAM ONLY)2021-07-02 05:56:49 Test Item Value [...] WBC 0-0 (test code = 413) POCT-GLUCOSE [id number] 21:57:03 Test Item Value Reference Range Interpretation Comments POC-GLUCOSE METER 179 mg/dL 70-110 H : TESTED A T [facility] 6720 (BEAKER) (test code = [facility], 1538) 10270: Control Technician/Techni kelle ID = [id number] for MACKENZIE GONZALEZ POCT-GLUCOSE [id number] 17:59:08 Test Item Value Reference Range Interpretation Comments POC-GLUCOSE METER 208 mg/dL 70-110 H : TESTED A T [facility] 6720 (BEAKER) (test code = [facility], 1538) 39006: Control Technician/Techni kelle ID = [id number] for Loco Hicks POCT-GLUCOSE [id number] 13:37:14 Test Item Value Reference Range Interpretation Comments POC-GLUCOSE METER 118 mg/dL 70-110 H : TESTED A T [facility] 6720 (BEAKER) (test code = [facility], 1538) 66519: Control Technician/Techni kelle ID = [id number] for Millie Toledo RAD, CHEST, 1 VIEW, NON [id number] 09:58:00Reason for exam:->post-opShould this be performed at the bedside?->Yes [facility] : 1955 Sex: FFINAL REPORT RAD, [...] MDReport Verified Date/Time: 07/01/2021 09:58:13 Reading Location: [facility] Radiology Reading Room Electronically signed by: Hannah JEAN 07/01/2021 09:58 AMPOC-Glucose [id number] 08:48:09 Test Item Value Reference Range Interpretation Comments POC-Glucose Meter (test 127 mg/dL 70-110 H : TE STED AT [facility] code = 1538) 67[address] [facility], 770 30: Control Technician/Techni kelle ID = [id number] for Loco Chapman Lab Interpretation (test Abnormal code = 64438-9) [facility] [id number] 08:48:09 Test Item Value Reference Range Interpretation Comments POC-GLUCOSE METER 127 mg/dL 70-110 H : TESTED A T [facility] 6720 (BEAKER) (test [facility] = [facility], [facility]) 81858: Control Technician/Techni kelle ID = [id number] for Loco Hicks Basic Metabolic [id number] 06:34:36 Test Item Value Reference Range Interpretation [...] (test code = 8.2 mg/dL 8.4-10.2 L 69197-8) EGFR (test code = 10 mL/min/1.73 [place] [address]-4) NOT ACCURATE CREATININE CLEARANCE IN PREDICTING GLOMERULAR FILTRATION RATE . ESTIMATED GFR I S NOT APPLICABLE FOR DIALYSIS PATIENTS. BRANDI (test code = BRANDI) Control Technician ID - PIAYAD L Lab Interpretation Abnormal (test code = 30066-4) [facility] HospitalBASIC METABOLIC [id number] 06:34:36 Test Item Value Reference Range Interpretation [...] S NOT APPLICABLE FOR DIALYSIS PATIEN TS. Control Technician ID - LIANA UOzowlmcrj1204-04-11 06:26:43 Test Item Value Reference Range Interpretation Comments Magnesium (test code = 2.1 mg/dL 1.6-2.6 92999-9) BRANDI (test code = BRANDI) Control Technician ID - PIAYA L Lab Interpretation (test Normal code = 94620-6) [facility]2022-03-30 06:26:43 Test Item Value Reference Range Interpretation Comments Phosphorus (test code = 3.6 mg/dL 2.3-4.7 2777-1) BRANDI (test code = BRANDI) Control Technician ID - PIAYA L Lab Interpretation (test Normal code = 67029-1) [facility]2022-03-30 06:26:43 Test Item Value Reference Range Interpretation Comments MAGNESIUM (BEAKER) (test code = 2.1 mg/dL 1.6-2.6 627) Control Technician ID - LIANA [id number] 06:26:43 Test Item Value Reference Range Interpretation Comments PHOSPHORUS (BEAKER) (test code = 3.6 mg/dL 2.3-4.7 604) Control Technician ID - LIANA LCBC (Hemogram only)2021-07-01 05:41:20 Test Item Value Reference Range Interpretation Comments WBC (test code = 6690-2) 4.8 See_Comment [A utomated message] The system [employer] generated this result transmitted ref erence range: 3.5 - 10 .5 K/L. The refe rence range was not u sed to interpret this result as normal/abnor mal. RBC (test code = 789-8) 2.60 See_Comment L [Au tomated message] The system [employer] generated this result transmitted ref erence range: 3.93 - 5 .22 M/L. The refe rence range was not u sed to interpret this result as normal/abnor mal. MCHC (test code = 786-4) 32.1 See_Comment L [A utomated message] The system [employer] generated this result transmitted ref erence range: [...] L [Aut omated message] 777-3) The system [employer] generated this result transmitted ref erence range: 150 - 45 0 K/CU MM. The referen ce range was not u sed to interpret this result as normal/abnor mal. MPV (test code = 11.3 fL 9.4-12.3 38966-7) nRBC (test code = 413) 0 See_Comment [Aut omated message] The system [employer] generated this result transmitted ref erence range: 0 - 0 /1 00 WBC. The refere nce range was not u sed to interpret this result as normal/abnor mal. Lab Interpretation (test Abnormal code = 66578-2) [facility] (HEMOGRAM ONLY)2021-07-01 05:41:20 Test Item Value [...] WBC 0-0 (test code = 413) POCT-GLUCOSE [id number] 21:14:47 Test Item Value Reference Range Interpretation Comments POC-GLUCOSE METER 159 mg/dL 70-110 H : TESTED A T [facility] 6720 (BEAKER) (test code = [place], 1538) 94469: Control Technician/Techni kelle ID = [id number] for RO FRANCES, MACKENZIE RAD, ABDOMEN/KUB, 1 VIEW [id number] 18:59:00Reason for exam:- >constipationShould this be performed at the bedside?->Yes [facility] : 1955 Sex: FFINAL REPORT Exam: RAD, ABDOMEN/KUB, 1 VIEW APDate: 06/30/2021 6:58 PM Indication:constipation COMPARISON: 06/24/2021 DISCUSSION/IMPRESSION: The lower thorax is within normal limits. Nonspecific bowel gas pattern. No evidence of free air within the limitations of this study. Signed: Kb Gregorio Verified Date/Time: 06/30/2021 18:59:30 Reading Location: [address] Reading Room POCT-GLUCOSE [id number] 17:39:03 Test Item Value Reference Range Interpretation Comments POC-GLUCOSE METER 204 mg/dL 70-110 H : [facility] (Smart[employer]oot) (test code = [facility], 1538) 02510: Control Technician/Techni kelle ID = [id number] for OR PHEY, EDMUNDO POCT-GLUCOSE [id number] 12:35:41 Test Item Value Reference Range Interpretation Comments POC-GLUCOSE METER 136 mg/dL 70-110 H : TESTED A T [facility] 6720 (SmartShoot) (test code = [facility], 1538) 35929: Control Technician/Techni kelle ID = [id number] for OR PHEY, EDMUNDO RAD, CHEST, 1 VIEW, NON [id number] 09:21:00Reason for exam:->post-opShould this be performed at the bedside?->Yes [facility] : 1955 Sex: [...] Conteh Verified Date/Time: 06/30/2021 09:21:42 Reading Location: [facility] Radiology Reading Room POCT-GLUCOSE [id number] 08:26:49 Test Item Value Reference Range Interpretation Comments POC-GLUCOSE METER 132 mg/dL 70-110 H : TESTED A T [facility] 6720 (BEAKER) (test code = [place], 1538) 30794: Control Technician/Techni kelle ID = [id number] for OR EDMUNDO BOWIE BASIC METABOLIC [id number] 05:31:46 Test Item Value Reference Range Interpretation [...] S NOT APPLICABLE FOR DIALYSIS PATIEN TS. Control Technician ID Bassam GAINES [id number] 05:28:01 Test Item Value Reference Range Interpretation Comments MAGNESIUM (BEAKER) (test code = 1.8 mg/dL 1.6-2.6 627) Control Technician ID - BURKEAYAD [id number] 05:28:01 Test Item Value Reference Range Interpretation Comments PHOSPHORUS (BEAKER) (test code = 2.6 mg/dL 2.3-4.7 604) Control Technician ID - LIANA LCBC (HEMOGRAM ONLY)2021-06-30 05:03:10 [...] 0-0 (test code = 413) Prepare Leuko-Red [id number] 23:54:00 Test Item Value Reference Range Interpretation Comments CROSSMATCH (test code = 2264) COMPATIBLE Unit ABO (test code = O Pos 4403803) UNIT NUMBER (test code = [id number] 934-0) Status (test code = 0547983) TX_TIMEINCHART Blood Bank Product (test code RED BLOOD CELLS = 2263) PRODUCT CODE (test code = B2711R77 933-2) [facility]Red [id number] 23:54:00 Test Item Value Reference Range Interpretation Comments CROSSMATCH (test code = 2264) COMPATIBLE Unit ABO (test code = O Pos 8535383) UNIT NUMBER (test code = [id number] 934-0) Status (test code = 1958093) [facility]INCB[facility] Blood Bank Product (test code RED BLOOD CELLS = 2263) PRODUCT CODE (test code = M9906P48 933-2) [facility] HospitalPrep[facility] Leuko-Red [id number] 23:54:00 Test Item Value Reference Range Interpretation Comments CROSSMATCH (test code = 2264) COMPATIBLE Unit ABO (test code = O Pos 1698490) UNIT NUMBER (test code = [id number] 934-0) Status (test code = 3038657) TX_TIMEINCHART Blood Bank Product (test code RED BLOOD CELLS = 2263) PRODUCT CODE (test code = D3531Z10 933-2) [facility] HospitalPrep[facility] Leuko-Red [id number] 23:54:00 Test Item Value Reference Range Interpretation Comments CROSSMATCH (test code = 2264) COMPATIBLE Unit ABO (test code = O Pos 5590307) UNIT NUMBER (test code = [id number] 934-0) Status (test code = 3394718) TX_TIMEINCHART Blood Bank Product (test code RED BLOOD CELLS = 2263) PRODUCT CODE (test code = A8134A62 933-2) [facility] Hospital[facility] Leuko-Red [id number] 23:54:00 Test Item Value Reference Range Interpretation Comments CROSSMATCH (test code = 2264) COMPATIBLE Unit ABO (test code = O Pos 8798167) UNIT NUMBER (test code = [id number] 934-0) Status (test code = 8946844) TX_TIMEINCHART Blood Bank Product (test code RED BLOOD CELLS = 2263) PRODUCT CODE (test code = T0800E49 933-2) [facility]Pre[facility]uk[facility]-Red [id number] 23:54:00 Test Item Value Reference Range Interpretation Comments CROSSMATCH (test code = 2264) COMPATIBLE Unit ABO (test code = O Pos 7231552) UNIT NUMBER (test code = [id number] 934-0) Status (test code = 9072250) TX_TIMEINCHART Blood Bank Product (test code RED BLOOD CELLS = 2263) PRODUCT CODE (test code = I5679P10 933-2) [facility] Leuko-Red [id number] 23:54:00 Test Item Value Reference Range Interpretation Comments CROSSMATCH (test code = 2264) COMPATIBLE Unit ABO (test code = O Pos 7721122) UNIT NUMBER (test code = [id number] 934-0) Status (test code = 9919023) TX_TIMEINCHART Blood Bank Product (test code RED BLOOD CELLS = 2263) PRODUCT CODE (test code = T7557M57 933-2) [facility] Leuko-Red [id number] 23:54:00 Test Item Value Reference Range Interpretation Comments CROSSMATCH (test code = 2264) COMPATIBLE Unit ABO (test code = O Pos 0438998) UNIT NUMBER (test code = [id number] 934-0) Status (test code = 6560929) TX_TIMEINCHART Blood Bank Product (test code RED BLOOD CELLS = 2263) PRODUCT CODE (test code = E4736J02 933-2) [facility] HospitalPrep[facility] Leuko-Red [id number] 23:54:00 Test Item Value Reference Range Interpretation Comments CROSSMATCH (test code = 2264) COMPATIBLE Unit ABO (test code = O Pos 6708043) UNIT NUMBER (test code = [id number] 934-0) Status (test code = 2909758) TX_TIMEINCHART Blood Bank Product (test code RED BLOOD CELLS = 2263) PRODUCT CODE (test code = U7313I92 933-2) [facility] Hospital[facility] Leuko-Red [id number] 23:54:00 Test Item Value Reference Range Interpretation Comments CROSSMATCH (test code = 2264) COMPATIBLE Unit ABO (test code = O Pos 2099697) UNIT NUMBER (test code = [id number] 934-0) Status (test code = 3781957) [facility]_TIMEINCBAN[facility] Blood Bank Product (test code RED BLOOD CELLS = 2263) PRODUCT CODE (test code = P3163N80 933-2) [facility] HospitalPrep[facility] Leuko-Red [id number] 23:54:00 Test Item Value Reference Range Interpretation Comments CROSSMATCH (test code = 2264) COMPATIBLE Unit ABO (test code = O Pos 1833275) UNIT NUMBER (test code = [id number] 934-0) Status (test code = 7259084) TX_TIMEINCHART Blood Bank Product (test code RED BLOOD CELLS = 2263) PRODUCT CODE (test code = J8199M22 933-2) [facility] HospitalPrep[facility] Leuko-Red [id number] 23:54:00 Test Item Value Reference Range Interpretation Comments CROSSMATCH (test code = 2264) COMPATIBLE Unit ABO (test code = O Pos 0658514) UNIT NUMBER (test code = [id number] 934-0) Status (test code = 9943014) TX_TIMEINCHART Blood Bank Product (test code RED BLOOD CELLS = 2263) PRODUCT CODE (test code = G2046H53 933-2) [facility] Hospital[facility] Leuko-Red [id number] 23:54:00 Test Item Value Reference Range Interpretation Comments CROSSMATCH (test code = 2264) COMPATIBLE Unit ABO (test code = O Pos 6213997) UNIT NUMBER (test code = [id number] 934-0) Status (test code = 6430073) [facility] Product (test code RED BLOOD CELLS = 2263) PRODUCT CODE (test code = N2526Y90 933-2) [facility] Hospital[facility] Leuko-Red [id number] 23:54:00 Test Item Value Reference Range Interpretation Comments CROSSMATCH (test code = 2264) COMPATIBLE Unit ABO (test code = O Pos 4811634) UNIT NUMBER (test code = [id number] 934-0) Status (test code = 8412084) [facility] Blood Bank Product (test code RED BLOOD CELLS = 2263) PRODUCT CODE (test code = T0528J65 933-2) [facility] HospitalPOCT-GLUCOSE [id number] 22:04:06 Test Item Value Reference Range Interpretation Comments POC-GLUCOSE METER 149 mg/dL 70-110 H : TESTED A T [facility] 6720 (BEAKER) (test code = [facility], 1538) 62228: Control Technician/Techni kelle ID = [id number] for Penacerrada, Ti pastora POCT-GLUCOSE [id number] 17:55:17 Test Item Value Reference Range Interpretation Comments POC-GLUCOSE METER 150 mg/dL 70-110 H : TESTED A T [facility] 6720 (BEAKER) (test code = [facility], 1538) 14751: Control Technician/Techni kelle ID = [id number] for OR PHEY, EDMUNDO POCT-GLUCOSE [id number] 15:31:47 Test Item Value Reference Range Interpretation Comments POC-GLUCOSE METER 155 mg/dL 70-110 H : TESTED A T [facility] 6720 (BEAKER) (test code = [facility], 153) 67879: Control Technician/Techni kelle ID = [id number] for OR PHEY, EDMUNDO RAD, CHEST, 1 VIEW, NON [id number] 10:41:00Reason for exam:->post-opShould this be performed at the bedside?->Yes [facility] : 1955 Sex: [...] Conteh Verified Date/Time: 06/29/2021 10:41:18 Reading Location: [facility] Radiology Reading Room POC-Glucose [id number] 08:51:04 Test Item Value Reference Range Interpretation Comments POC-Glucose Meter (test 208 mg/dL 70-110 H : TE STED AT [facility] code = 1538) [address] [facility], 770 30: Control Technician/Techni kelle ID = [id number] for EDMUNDO BARRAGAN Lab Interpretation (test Abnormal code = 02798-1) [facility] HospitalPOC-Glucose [id number] 08:51:04 Test Item Value Reference Range Interpretation Comments POC-Glucose Meter (test 208 mg/dL 70-110 H : TE STED AT [facility] code = 1538) [address] [facility], 770 30: Control Technician/Techni kelle ID = [id number] for EDMUNDO BARRAGAN Lab Interpretation (test Abnormal code = 15124-8) [facility] HospitalPOCT-GLUCOSE [id number] 08:51:04 Test Item Value Reference Range Interpretation Comments POC-GLUCOSE METER 208 mg/dL 70-110 H : TESTED A T [facility] 6720 (BEAKER) (test code = [facility] [place] [place], 1538) 91960: Control Technician/Techni kelle ID = [id number] for EDMUNDO JACKSON Basic Metabolic [id number] 06:07:27 Test Item Value Reference Range Interpretation [...] (test code = 8.0 mg/dL 8.4-10.2 L 44846-9) EGFR (test code = 9 mL/min/1.[place] [address]-6) NOT ACCURATE CREATININE CLEARANCE IN PREDICTING GLOMERULAR FILTRATION RATE . ESTIMATED GFR I S NOT APPLICABLE FOR DIALYSIS PATIENTS. BRANDI (test code = BRANDI) Control Technician ID - HIEN M Lab Interpretation Abnormal (test code = 50233-4) [facility] HospitalBasic Metabolic [id number] 06:07:27 Test Item Value Reference Range Interpretation [...] (test code = 8.0 mg/dL 8.4-10.2 L 57630-7) EGFR (test code = 9 mL/min/1.[place] [address]-1) NOT ACCURATE CREATININE CLEARANCE IN PREDICTING GLOMERULAR FILTRATION RATE . ESTIMATED GFR I S NOT APPLICABLE FOR DIALYSIS PATIENTS. BRANDI (test code = BRANDI) Control Technician [employer] Lab Interpretation Abnormal (test code = 79718-5) [facility] Metabolic [id number] 06:07:27 Test Item Value Reference Range Interpretation [...] (test code = 8.0 mg/dL 8.4-10.2 L 68219-8) EGFR (test code = 9 mL/min/1.[place] [address]-2) NOT ACCURATE CREATININE CLEARANCE IN PREDICTING GLOMERULAR FILTRATION RATE . ESTIMATED GFR I S NOT APPLICABLE FOR DIALYSIS PATIENTS. BRANDI (test code = BRANDI) Control Technician [employer] Lab Interpretation Abnormal (test code = 56402-5) [facility] METABOLIC [id number] 06:07:27 Test Item Value Reference Range Interpretation [...] S NOT APPLICABLE FOR DIALYSIS PATIEN TS. Control Technician ID - HIEN [id number] 06:05:44 Test Item Value Reference Range Interpretation Comments Phosphorus (test code = 2.5 mg/dL 2.3-4.7 2777-1) BRANDI (test code = BRANDI) Control Technician ID - HIEN Lab Interpretation (test Normal code = 79439-5) [facility] HospitalPhosph[facility]2022-03-28 06:05:44 Test Item Value Reference Range Interpretation Comments Phosphorus (test code = 2.5 mg/dL 2.3-4.7 2777-1) BRANDI (test code = BRANDI) Control Technician ID - [facility] Lab Interpretation (test Normal code = 15826-2) [facility] HospitalPh[facility]2022-03-28 06:05:44 Test Item Value Reference Range Interpretation Comments Phosphorus (test code = 2.5 mg/dL 2.3-4.7 2777-1) BRANDI (test code = BRANDI) Control Technician ID - HIEN Lab Interpretation (test Normal code = 75861-0) [facility] HospitalPHOSPHORUS2022-03-28 06:05:44 Test Item Value Reference Range Interpretation Comments PHOSPHORUS (BEAKER) (test code = 2.5 mg/dL 2.3-4.7 604) Control Technician ID - [facility] [id number] 06:05:43 Test Item Value Reference Range Interpretation Comments Magnesium (test code = 2.2 mg/dL 1.6-2.6 86833-9) BRANDI (test code = BRANDI) Control Technician ID - HIEN Lab Interpretation (test Normal code = 41223-1) [facility] HospitalMagnesium2022-03-28 06:05:43 Test Item Value Reference Range Interpretation Comments Magnesium (test code = 2.2 mg/dL 1.6-2.6 37219-3) BRANDI (test code = BRANDI) Control Technician ID - HIEN M Lab Interpretation (test Normal code = 71460-0) [facility]2022-03-28 06:05:43 Test Item Value Reference Range Interpretation Comments Magnesium (test code = 2.2 mg/dL 1.6-2.6 21191-4) BRANDI (test code = BRANDI) Control Technician ID - HIEN M Lab Interpretation (test Normal code = 99864-6) [facility]2022-[facility]28 06:05:43 Test Item Value Reference Range Interpretation Comments MAGNESIUM (BEAKER) (test code = 2.2 mg/dL 1.6-2.6 627) Control Technician ID - HIEN [facility] (Hemogram only)2021-06-29 05:32:19 Test Item Value Reference Range Interpretation Comments WBC (test code = 6690-2) 4.7 See_Comment [A utomated message] The system [employer] generated this result transmitted ref erence range: 3.5 - 10 .5 K/L. The refe rence range was not u sed to interpret this result as normal/abnor mal. RBC (test code = 789-8) 2.94 See_Comment L [Au tomated message] The system [employer] generated this result transmitted ref erence range: 3.93 - 5 .22 M/L. The refe rence range was not u sed to interpret this result as normal/abnor mal. MCHC (test code = 786-4) 31.8 See_Comment L [A utomated message] The system [employer] generated this result transmitted ref erence range: [...] L [Aut omated message] 777-3) The system [employer] generated this result transmitted ref erence range: 150 - 45 0 K/CU MM. The referen ce range was not u sed to interpret this result as normal/abnor mal. MPV (test code = 12.2 fL 9.4-12.3 52090-2) nRBC (test code = 413) 0 See_Comment [Aut omated message] The system [employer] generated this result transmitted ref erence range: 0 - 0 /1 00 WBC. The refere nce range was not u sed to interpret this result as normal/abnor mal. Lab Interpretation (test Abnormal code = 22379-3) [facility] (Hemogram only)2021-06-29 05:32:19 Test Item Value Reference Range Interpretation Comments WBC (test code = 6690-2) 4.7 See_Comment [A utomated message] The system [employer] generated this result transmitted ref erence range: 3.5 - 10 .5 K/L. The refe rence range was not u sed to interpret this result as normal/abnor mal. RBC (test code = 789-8) 2.94 See_Comment L [Au tomated message] The system [employer] generated this result transmitted ref erence range: 3.93 - 5 .22 M/L. The refe rence range was not u sed to interpret this result as normal/abnor mal. MCHC (test code = 786-4) 31.8 See_Comment L [A utomated message] The system [employer] generated this result transmitted ref erence range: [...] L [Aut omated message] 777-3) The system [employer] generated this result transmitted ref erence range: 150 - 45 0 K/CU MM. The referen ce range was not u sed to interpret this result as normal/abnor mal. MPV (test code = 12.2 fL 9.4-12.3 85832-9) nRBC (test code = 413) 0 See_Comment [Aut omated message] The system [employer] generated this result transmitted ref erence range: 0 - 0 /1 00 WBC. The refere nce range was not u sed to interpret this result as normal/abnor mal. Lab Interpretation (test Abnormal code = 11658-9) [facility] (Hemogram only)2021-06-29 05:32:19 Test Item Value Reference Range Interpretation Comments WBC (test code = 6690-2) 4.7 See_Comment [A utomated message] The system [employer] generated this result transmitted ref erence range: 3.5 - 10 .5 K/L. The refe rence range was not u sed to interpret this result as normal/abnor mal. RBC (test code = 789-8) 2.94 See_Comment L [Au tomated message] The system [employer] generated this result transmitted ref erence range: 3.93 - 5 .22 M/L. The refe rence range was not u sed to interpret this result as normal/abnor mal. MCHC (test code = 786-4) 31.8 See_Comment L [A utomated message] The system [employer] generated this result transmitted ref erence range: [...] L [Aut omated message] 777-3) The system [employer] generated this result transmitted ref erence range: 150 - 45 0 K/CU MM. The referen ce range was not u sed to interpret this result as normal/abnor mal. MPV (test code = 12.2 fL 9.4-12.3 50380-4) nRBC (test code = 413) 0 See_Comment [Aut omated message] The system [employer] generated this result transmitted ref erence range: 0 - 0 /1 00 WBC. The refere nce range was not u sed to interpret this result as normal/abnor mal. Lab Interpretation (test Abnormal code = 29623-6) [facility] (HEMOGRAM ONLY)2021-06-29 05:32:19 Test Item Value [...] WBC 0-0 (test code = 413) POC-Glucose [id number] 19:54:37 Test Item Value Reference Range Interpretation Comments POC-Glucose Meter (test 188 mg/dL 70-110 H : TE STED AT [facility] code = 1538) [address] [facility] [place] [address]: Control Technician/Techni kelle ID = [id number] for RAMON SPRING Lab Interpretation (test Abnormal code = 95308-1) [facility] [id number] 19:54:37 Test Item Value Reference Range Interpretation Comments POC-GLUCOSE METER 188 mg/dL 70-110 H : TESTED A T [facility] [address] (BEAKER) (test code = YUDY Vaca [facility], 1538) [address]: Control Technician/Techni kelle ID = [id number] for RAMON FLORES POCT-GLUCOSE [id number] 17:33:41 Test Item Value Reference Range Interpretation Comments POC-GLUCOSE METER 166 mg/dL 70-110 H : TESTED A T [facility] 67[address] (BEAKER) (test code = [facility] [place] [facility], 1538) [address]: Control Technician/Techni kelle ID = [id number] for Nitin hansen Kayla CBC with platelet count + automated [id number] 15:34:06 Test Item Value Reference Range Interpretation Comments WBC (test code = 6690-2) 4.6 See_Comment [A utomated message] The system [employer] generated this result transmitted ref erence range: 3.5 - 10 .5 K/L. The refe rence range was not u sed to interpret this result as normal/abnor mal. RBC (test code = 789-8) 2.86 See_Comment L [Au tomated message] The system [employer] generated this result transmitted ref erence range: 3.93 - 5 .22 M/L. The refe rence range was not u sed to interpret this result as normal/abnor mal. MCHC (test code = 786-4) 32.1 See_Comment L [A utomated message] The system [employer] generated this result transmitted ref erence range: [...] L [Aut omated message] 777-3) The system [employer] generated this result transmitted ref erence range: 150 - 45 0 K/CU MM. The referen ce range was not u sed to interpret this result as normal/abnor mal. MPV (test code = 11.0 fL 9.4-12.3 03896-5) nRBC (test code = 413) 0 See_Comment [Aut omated message] The system [employer] generated this result transmitted ref erence range: [...] See_Comment [Aut omated message] 670) The system [employer] generated this result transmitted ref erence range: 1.56 - 6 .13 K/L. The refe rence range was not u sed to interpret this result as normal/abnor mal. # Lymphs (test code = 0.73 See_Comment L [Auto mated message] 414) The system [employer] generated this result transmitted ref erence range: 1.18 - 3 .74 K/L. The refe rence range was not u sed to interpret this result as normal/abnor mal. # Monos (test code = 0.62 See_Comment H [Autom ated message] 415) The system [employer] generated this result transmitted ref erence range: 0.24 - 0 .36 K/L. The refe rence range was not u sed to interpret this result as normal/abnor mal. # Eos (test code = 416) 0.24 See_Comment [Au tomated message] The system [employer] generated this result transmitted ref erence range: 0.04 - 0 .36 K/L. The refe rence range was not u sed to interpret this result as normal/abnor mal. # Baso (test code = 417) 0.04 See_Comment [A utomated message] The system [employer] generated this result transmitted ref erence range: 0.01 - 0 .08 K/L. The refe rence range was not u sed to interpret this result as normal/abnor mal. Immature 0 % 0-1 Granulocytes-Relative (test code = 2801) Lab Interpretation (test Abnormal code = 09168-9) [facility] with platelet count + automated [id number] 15:34:06 Test Item Value Reference Range Interpretation Comments WBC (test code = 6690-2) 4.6 See_Comment [A utomated message] The system [employer] generated this result transmitted ref erence range: 3.5 - 10 .5 K/L. The refe rence range was not u sed to interpret this result as normal/abnor mal. RBC (test code = 789-8) 2.86 See_Comment L [Au tomated message] The system [employer] generated this result transmitted ref erence range: 3.93 - 5 .22 M/L. The refe rence range was not u sed to interpret this result as normal/abnor mal. MCHC (test code = 786-4) 32.1 See_Comment L [A utomated message] The system [employer] generated this result transmitted ref erence range: [...] = 57 See_Comment L [Aut omated message] 257-3) The system [employer] generated this result transmitted ref erence range: 150 - 45 0 K/CU MM. The referen ce range was not u sed to interpret this result as normal/abnor mal. MPV (test code = 11.0 fL 9.4-12.3 43949-3) nRBC (test code = 413) 0 See_Comment [Aut omated message] The system [employer] generated this result transmitted ref erence range: [...] See_Comment [Aut omated message] 670) The system [employer] generated this result transmitted ref erence range: 1.56 - 6 .13 K/L. The refe rence range was not u sed to interpret this result as normal/abnor mal. # Lymphs (test code = 0.73 See_Comment L [Auto mated message] 414) The system [employer] generated this result transmitted ref erence range: 1.18 - 3 .74 K/L. The refe rence range was not u sed to interpret this result as normal/abnor mal. # Monos (test code = 0.62 See_Comment H [Autom ated message] 415) The system [employer] generated this result transmitted ref erence range: 0.24 - 0 .36 K/L. The refe rence range was not u sed to interpret this result as normal/abnor mal. # Eos (test code = 416) 0.24 See_Comment [Au tomated message] The system [employer] generated this result transmitted ref erence range: 0.04 - 0 .36 K/L. The refe rence range was not u sed to interpret this result as normal/abnor mal. # Baso (test code = 417) 0.04 See_Comment [A utomated message] The system [employer] generated this result transmitted ref erence range: 0.01 - 0 .08 K/L. The refe rence range was not u sed to interpret this result as normal/abnor mal. Immature 0 % 0-1 Granulocytes-Relative (test code = 2801) Lab Interpretation (test Abnormal code = 65907-2) [facility] [id number] 15:34:06 Test Item Value Reference Range Interpretation Comments WBC (test code = 6690-2) 4.6 See_Comment [A utomated message] The system [employer] generated this result transmitted ref erence range: 3.5 - 10 .5 K/L. The refe rence range was not u sed to interpret this result as normal/abnor mal. RBC (test code = 789-8) 2.86 See_Comment L [Au tomated message] The system [employer] generated this result transmitted ref erence range: 3.93 - 5 .22 M/L. The refe rence range was not u sed to interpret this result as normal/abnor mal. MCHC (test code = 786-4) 32.1 See_Comment L [A utomated message] The system [employer] generated this result transmitted ref erence range: [...] L [Aut omated message] 777-3) The system [employer] generated this result transmitted ref erence range: 150 - 45 0 K/CU MM. The referen ce range was not u sed to interpret this result as normal/abnor mal. MPV (test code = 11.0 fL 9.4-12.3 66787-7) nRBC (test code = 413) 0 See_Comment [Aut omated message] The system [employer] generated this result transmitted ref erence range: [...] See_Comment [Aut omated message] 670) The system [employer] generated this result transmitted ref erence range: 1.56 - 6 .13 K/L. The refe rence range was not u sed to interpret this result as normal/abnor mal. # Lymphs (test code = 0.73 See_Comment L [Auto mated message] 414) The system [employer] generated this result transmitted ref erence range: 1.18 - 3 .74 K/L. The refe rence range was not u sed to interpret this result as normal/abnor mal. # Monos (test code = 0.62 See_Comment H [Autom ated message] 415) The system [employer] generated this result transmitted ref erence range: 0.24 - 0 .36 K/L. The refe rence range was not u sed to interpret this result as normal/abnor mal. # Eos (test code = 416) 0.24 See_Comment [Au tomated message] The system [employer] generated this result transmitted ref erence range: 0.04 - 0 .36 K/L. The refe rence range was not u sed to interpret this result as normal/abnor mal. # Baso (test code = 417) 0.04 See_Comment [A utomated message] The system [employer] generated this result transmitted ref erence range: 0.01 - 0 .08 K/L. The refe rence range was not u sed to interpret this result as normal/abnor mal. Immature 0 % 0-1 Granulocytes-Relative (test code = 2801) Lab Interpretation (test Abnormal code = 67855-0) [facility] with platelet count + automated [id number] 15:34:06 Test Item Value Reference Range Interpretation Comments WBC (test code = 6690-2) 4.6 See_Comment [A utomated message] The [employer] generated this result transmitted ref erence range: 3.5 - 10 .5 K/L. The refe rence range was not u sed to interpret this result as normal/abnor mal. RBC (test code = 789-8) 2.86 See_Comment L [Au tomated message] The system [employer] generated this result transmitted ref erence range: 3.93 - 5 .22 M/L. The refe rence range was not u sed to interpret this result as normal/abnor mal. MCHC (test code = 786-4) 32.1 See_Comment L [A utomated message] The system [employer] generated this result transmitted ref erence range: [...] L [Aut omated message] 777-3) The system [employer] generated this result transmitted ref erence range: 150 - 45 0 K/CU MM. The referen ce range was not u sed to interpret this result as normal/abnor mal. MPV (test code = 11.0 fL 9.4-12.3 89363-2) nRBC (test code = 413) 0 See_Comment [Aut omated message] The [employer] generated this result transmitted ref erence range: [...] See_Comment [Aut omated message] 670) The system [employer] generated this result transmitted ref erence range: 1.56 - 6 .13 K/L. The refe rence range was not u sed to interpret this result as normal/abnor mal. # Lymphs (test code = 0.73 See_Comment L [Auto mated message] 414) The system [employer] generated this result transmitted ref erence range: 1.18 - 3 .74 K/L. The refe rence range was not u sed to interpret this result as normal/abnor mal. # Monos (test code = 0.62 See_Comment H [Autom ated message] 415) The system [employer] generated this result transmitted ref erence range: 0.24 - 0 .36 K/L. The refe rence range was not u sed to interpret this result as normal/abnor mal. # Eos (test code = 416) 0.24 See_Comment [Au tomated message] The system [employer] generated this result transmitted ref erence range: 0.04 - 0 .36 K/L. The refe rence range was not u sed to interpret this result as normal/abnor mal. # Baso (test code = 417) 0.04 See_Comment [A utomated message] The system [employer] generated this result transmitted ref erence range: 0.01 - 0 .08 K/L. The refe rence range was not u sed to interpret this result as normal/abnor mal. Immature 0 % 0-1 Granulocytes-Relative (test code = 2801) Lab Interpretation (test Abnormal code = 76905-9) [facility] with platelet count + automated [id number] 15:34:06 Test Item Value Reference Range Interpretation Comments WBC (test code = 6690-2) 4.6 See_Comment [A utomated message] The system [employer] generated this result transmitted ref erence range: 3.5 - 10 .5 K/L. The refe rence range was not u sed to interpret this result as normal/abnor mal. RBC (test code = 789-8) 2.86 See_Comment L [Au tomated message] The system [employer] generated this result transmitted ref erence range: 3.93 - 5 .22 M/L. The refe rence range was not u sed to interpret this result as normal/abnor mal. MCHC (test code = 786-4) 32.1 See_Comment L [A utomated message] The system [employer] generated this result transmitted ref erence range: [...] L [Aut omated message] 777-3) The system [employer] generated this result transmitted ref erence range: 150 - 45 0 K/CU MM. The referen ce range was not u sed to interpret this result as normal/abnor mal. MPV (test code = 11.0 fL 9.4-12.3 73196-1) nRBC (test code = 413) 0 See_Comment [Aut omated message] The system [employer] generated this result transmitted ref erence range: [...] See_Comment [Aut omated message] 670) The system [employer] generated this result transmitted ref erence range: 1.56 - 6 .13 K/L. The refe rence range was not u sed to interpret this result as normal/abnor mal. # Lymphs (test code = 0.73 See_Comment L [Auto mated message] 414) The system [employer] generated this result transmitted ref erence range: 1.18 - 3 .74 K/L. The refe rence range was not u sed to interpret this result as normal/abnor mal. # Monos (test code = 0.62 See_Comment H [Autom ated message] 415) The system [employer] generated this result transmitted ref erence range: 0.24 - 0 .36 K/L. The refe rence range was not u sed to interpret this result as normal/abnor mal. # Eos (test code = 416) 0.24 See_Comment [Au tomated message] The system [employer] generated this result transmitted ref erence range: 0.04 - 0 .36 K/L. The refe rence range was not u sed to interpret this result as normal/abnor mal. # Baso (test code = 417) 0.04 See_Comment [A utomated message] The system [employer] generated this result transmitted ref erence range: 0.01 - 0 .08 K/L. The refe rence range was not u sed to interpret this result as normal/abnor mal. Immature 0 % 0-1 Granulocytes-Relative (test code = 2801) Lab Interpretation (test Abnormal code = 36656-8) [facility] with platelet count + automated [id number] 15:34:06 Test Item Value Reference Range Interpretation Comments WBC (test code = 6690-2) 4.6 See_Comment [A utomated message] The system [employer] generated this result transmitted ref erence range: 3.5 - 10 .5 K/L. The refe rence range was not u sed to interpret this result as normal/abnor mal. RBC (test code = 789-8) 2.86 See_Comment L [Au tomated message] The system [employer] generated this result transmitted ref erence range: 3.93 - 5 .22 M/L. The refe rence range was not u sed to interpret this result as normal/abnor mal. MCHC (test code = 786-4) 32.1 See_Comment L [A utomated message] The system [employer] generated this result transmitted ref erence range: [...] L [Aut omated message] 777-3) The system [employer] generated this result transmitted ref erence range: 150 - 45 0 K/CU MM. The referen ce range was not u sed to interpret this result as normal/abnor mal. MPV (test code = 11.0 fL 9.4-12.3 75274-4) nRBC (test code = 413) 0 See_Comment [Aut omated message] The system [employer] generated this result transmitted ref erence range: [...] See_Comment [Aut omated message] 670) The system [employer] generated this result transmitted ref erence range: 1.56 - 6 .13 K/L. The refe rence range was not u sed to interpret this result as normal/abnor mal. # Lymphs (test code = 0.73 See_Comment L [Auto mated message] 414) The system [employer] generated this result transmitted ref erence range: 1.18 - 3 .74 K/L. The refe rence range was not u sed to interpret this result as normal/abnor mal. # Monos (test code = 0.62 See_Comment H [Autom ated message] 415) The system [employer] generated this result transmitted ref erence range: 0.24 - 0 .36 K/L. The refe rence range was not u sed to interpret this result as normal/abnor mal. # Eos (test code = 416) 0.24 See_Comment [Au tomated message] The system [employer] generated this result transmitted ref erence range: 0.04 - 0 .36 K/L. The refe rence range was not u sed to interpret this result as normal/abnor mal. # Baso (test code = 417) 0.04 See_Comment [A utomated message] The system [employer] generated this result transmitted ref erence range: 0.01 - 0 .08 K/L. The refe rence range was not u sed to interpret this result as normal/abnor mal. Immature 0 % 0-1 Granulocytes-Relative (test code = 2801) Lab Interpretation (test Abnormal code = 71238-9) [facility] with platelet count + automated [id number] 15:34:06 Test Item Value Reference Range Interpretation Comments WBC (test code = 6690-2) 4.6 See_Comment [A utomated message] The system [employer] generated this result transmitted ref erence range: 3.5 - 10 .5 K/L. The refe rence range was not u sed to interpret this result as normal/abnor mal. RBC (test code = 789-8) 2.86 See_Comment L [Au tomated message] The system [employer] generated this result transmitted ref erence range: 3.93 - 5 .22 M/L. The refe rence range was not u sed to interpret this result as normal/abnor mal. MCHC (test code = 786-4) 32.1 See_Comment L [A utomated message] The system [employer] generated this result transmitted ref erence range: [...] = 57 See_Comment L [Aut omated message] 287-3) The system [employer] generated this result transmitted ref erence range: 150 - 45 0 K/CU MM. The referen ce range was not u sed to interpret this result as normal/abnor mal. MPV (test code = 11.0 fL 9.4-12.3 00054-4) nRBC (test code = 413) 0 See_Comment [Aut omated message] The system [employer] generated this result transmitted ref erence range: [...] See_Comment [Aut omated message] 670) The system [employer] generated this result transmitted ref erence range: 1.56 - 6 .13 K/L. The refe rence range was not u sed to interpret this result as normal/abnor mal. # Lymphs (test code = 0.73 See_Comment L [Auto mated message] 414) The system [employer] generated this result transmitted ref erence range: 1.18 - 3 .74 K/L. The refe rence range was not u sed to interpret this result as normal/abnor mal. # Monos (test code = 0.62 See_Comment H [Autom ated message] 415) The system [employer] generated this result transmitted ref erence range: 0.24 - 0 .36 K/L. The refe rence range was not u sed to interpret this result as normal/abnor mal. # Eos (test code = 416) 0.24 See_Comment [Au tomated message] The system [employer] generated this result transmitted ref erence range: 0.04 - 0 .36 K/L. The refe rence range was not u sed to interpret this result as normal/abnor mal. # Baso (test code = 417) 0.04 See_Comment [A utomated message] The system [employer] generated this result transmitted ref erence range: 0.01 - 0 .08 K/L. The refe rence range was not u sed to interpret this result as normal/abnor mal. Immature 0 % 0-1 Granulocytes-Relative (test code = 2801) Lab Interpretation (test Abnormal code = 09191-5) [facility] with platelet count + automated [id number] 15:34:06 Test Item Value Reference Range Interpretation Comments WBC (test code = 6690-2) 4.6 See_Comment [A utomated message] The system [employer] generated this result transmitted ref erence range: 3.5 - 10 .5 K/L. The refe rence range was not u sed to interpret this result as normal/abnor mal. RBC (test code = 789-8) 2.86 See_Comment L [Au tomated message] The system [employer] generated this result transmitted ref erence range: 3.93 - 5 .22 M/L. The refe rence range was not u sed to interpret this result as normal/abnor mal. MCHC (test code = 786-4) 32.1 See_Comment L [A utomated message] The system [employer] generated this result transmitted ref erence range: [...] L [Aut omated message] 777-3) The system [employer] generated this result transmitted ref erence range: 150 - 45 0 K/CU MM. The referen ce range was not u sed to interpret this result as normal/abnor mal. MPV (test code = 11.0 fL 9.4-12.3 39913-5) nRBC (test code = 413) 0 See_Comment [Aut omated message] The system [employer] generated this result transmitted ref erence range: [...] See_Comment [Aut omated message] 670) The system [employer] generated this result transmitted ref erence range: 1.56 - 6 .13 K/L. The refe rence range was not u sed to interpret this result as normal/abnor mal. # Lymphs (test code = 0.73 See_Comment L [Auto mated message] 414) The system [employer] generated this result transmitted ref erence range: 1.18 - 3 .74 K/L. The refe rence range was not u sed to interpret this result as normal/abnor mal. # Monos (test code = 0.62 See_Comment H [Autom ated message] 415) The system [employer] generated this result transmitted ref erence range: 0.24 - 0 .36 K/L. The refe rence range was not u sed to interpret this result as normal/abnor mal. # Eos (test code = 416) 0.24 See_Comment [Au tomated message] The system [employer] generated this result transmitted ref erence range: 0.04 - 0 .36 K/L. The refe rence range was not u sed to interpret this result as normal/abnor mal. # Baso (test code = 417) 0.04 See_Comment [A utomated message] The system [employer] generated this result transmitted ref erence range: 0.01 - 0 .08 K/L. The refe rence range was not u sed to interpret this result as normal/abnor mal. Immature 0 % 0-1 Granulocytes-Relative (test code = 2801) Lab Interpretation (test Abnormal code = 11979-5) [facility] with platelet count + automated [id number] 15:34:06 Test Item Value Reference Range Interpretation Comments WBC (test code = 6690-2) 4.6 See_Comment [A utomated message] The system [employer] generated this result transmitted ref erence range: 3.5 - 10 .5 K/L. The refe rence range was not u sed to interpret this result as normal/abnor mal. RBC (test code = 789-8) 2.86 See_Comment L [Au tomated message] The system [employer] generated this result transmitted ref erence range: 3.93 - 5 .22 M/L. The refe rence range was not u sed to interpret this result as normal/abnor mal. MCHC (test code = 786-4) 32.1 See_Comment L [A utomated message] The system [employer] generated this result transmitted ref erence range: [...] L [Aut omated message] 777-3) The system [employer] generated this result transmitted ref erence range: 150 - 45 0 K/CU MM. The referen ce range was not u sed to interpret this result as normal/abnor mal. MPV (test code = 11.0 fL 9.4-12.3 18822-7) nRBC (test code = 413) 0 See_Comment [Aut omated message] The system [employer] generated this result transmitted ref erence range: [...] See_Comment [Aut omated message] 670) The system [employer] generated this result transmitted ref erence range: 1.56 - 6 .13 K/L. The refe rence range was not u sed to interpret this result as normal/abnor mal. # Lymphs (test code = 0.73 See_Comment L [Auto mated message] 414) The system [employer] generated this result transmitted ref erence range: 1.18 - 3 .74 K/L. The refe rence range was not u sed to interpret this result as normal/abnor mal. # Monos (test code = 0.62 See_Comment H [Autom ated message] 415) The system [employer] generated this result transmitted ref erence range: 0.24 - 0 .36 K/L. The refe rence range was not u sed to interpret this result as normal/abnor mal. # Eos (test code = 416) 0.24 See_Comment [Au tomated message] The system [employer] generated this result transmitted ref erence range: 0.04 - 0 .36 K/L. The refe rence range was not u sed to interpret this result as normal/abnor mal. # Baso (test code = 417) 0.04 See_Comment [A utomated message] The system [employer] generated this result transmitted ref erence range: 0.01 - 0 .08 K/L. The refe rence range was not u sed to interpret this result as normal/abnor mal. Immature 0 % 0-1 Granulocytes-Relative (test code = 2801) Lab Interpretation (test Abnormal code = 32779-4) [facility] [id number] 15:34:06 Test Item Value Reference Range Interpretation Comments WBC (test code = 6690-2) 4.6 See_Comment [A utomated message] The system [employer] generated this result transmitted ref erence range: 3.5 - 10 .5 K/L. The refe rence range was not u sed to interpret this result as normal/abnor mal. RBC (test code = 789-8) 2.86 See_Comment L [Au tomated message] The system [employer] generated this result transmitted ref erence range: 3.93 - 5 .22 M/L. The refe rence range was not u sed to interpret this result as normal/abnor mal. MCHC (test code = 786-4) 32.1 See_Comment L [A utomated message] The system [employer] generated this result transmitted ref erence range: [...] L [Aut omated message] 777-3) The system [employer] generated this result transmitted ref erence range: 150 - 45 0 K/CU MM. The referen ce range was not u sed to interpret this result as normal/abnor mal. MPV (test code = 11.0 fL 9.4-12.3 96526-0) nRBC (test code = 413) 0 See_Comment [Aut omated message] The system [employer] generated this result transmitted ref erence range: [...] See_Comment [Aut omated message] 670) The system [employer] generated this result transmitted ref erence range: 1.56 - 6 .13 K/L. The refe rence range was not u sed to interpret this result as normal/abnor mal. # Lymphs (test code = 0.73 See_Comment L [Auto mated message] 414) The system [employer] generated this result transmitted ref erence range: 1.18 - 3 .74 K/L. The refe rence range was not u sed to interpret this result as normal/abnor mal. # Monos (test code = 0.62 See_Comment H [Autom ated message] 415) The system [employer] generated this result transmitted ref erence range: 0.24 - 0 .36 K/L. The refe rence range was not u sed to interpret this result as normal/abnor mal. # Eos (test code = 416) 0.24 See_Comment [Au tomated message] The system [employer] generated this result transmitted ref erence range: 0.04 - 0 .36 K/L. The refe rence range was not u sed to interpret this result as normal/abnor mal. # Baso (test code = 417) 0.04 See_Comment [A utomated message] The system [employer] generated this result transmitted ref erence range: 0.01 - 0 .08 K/L. The refe rence range was not u sed to interpret this result as normal/abnor mal. Immature 0 % 0-1 Granulocytes-Relative (test code = 2801) Lab Interpretation (test Abnormal code = 47659-7) [facility] with platelet count + automated [id number] 15:34:06 Test Item Value Reference Range Interpretation Comments WBC (test code = 6690-2) 4.6 See_Comment [A utomated message] The system [employer] generated this result transmitted ref erence range: 3.5 - 10 .5 K/L. The refe rence range was not u sed to interpret this result as normal/abnor mal. RBC (test code = 789-8) 2.86 See_Comment L [Au tomated message] The system [employer] generated this result transmitted ref erence range: 3.93 - 5 .22 M/L. The refe rence range was not u sed to interpret this result as normal/abnor mal. MCHC (test code = 786-4) 32.1 See_Comment L [A utomated message] The system [employer] generated this result transmitted ref erence range: [...] L [Aut omated message] 777-3) The system [employer] generated this result transmitted ref erence range: 150 - 45 0 K/CU MM. The referen ce range was not u sed to interpret this result as normal/abnor mal. MPV (test code = 11.0 fL 9.4-12.3 64723-4) nRBC (test code = 413) 0 See_Comment [Aut omated message] The system [employer] generated this result transmitted ref erence range: [...] See_Comment [Aut omated message] 670) The system [employer] generated this result transmitted ref erence range: 1.56 - 6 .13 K/L. The refe rence range was not u sed to interpret this result as normal/abnor mal. # Lymphs (test code = 0.73 See_Comment L [Auto mated message] 414) The system [employer] generated this result transmitted ref erence range: 1.18 - 3 .74 K/L. The refe rence range was not u sed to interpret this result as normal/abnor mal. # Monos (test code = 0.62 See_Comment H [Autom ated message] 415) The system [employer] generated this result transmitted ref erence range: 0.24 - 0 .36 K/L. The refe rence range was not u sed to interpret this result as normal/abnor mal. # Eos (test code = 416) 0.24 See_Comment [Au tomated message] The system [employer] generated this result transmitted ref erence range: 0.04 - 0 .36 K/L. The refe rence range was not u sed to interpret this result as normal/abnor mal. # Baso (test code = 417) 0.04 See_Comment [A utomated message] The system [employer] generated this result transmitted ref erence range: 0.01 - 0 .08 K/L. The refe rence range was not u sed to interpret this result as normal/abnor mal. Immature 0 % 0-1 Granulocytes-Relative (test code = 2801) Lab Interpretation (test Abnormal code = 09480-6) [facility] with platelet count + automated [id number] 15:34:06 Test Item Value Reference Range Interpretation Comments WBC (test code = 6690-2) 4.6 See_Comment [A utomated message] The system [employer] generated this result transmitted ref erence range: 3.5 - 10 .5 K/L. The refe rence range was not u sed to interpret this result as normal/abnor mal. RBC (test code = 789-8) 2.86 See_Comment L [Au tomated message] The system [employer] generated this result transmitted ref erence range: 3.93 - 5 .22 M/L. The refe rence range was not u sed to interpret this result as normal/abnor mal. MCHC (test code = 786-4) 32.1 See_Comment L [A utomated message] The system [employer] generated this result transmitted ref erence range: [...] = 57 See_Comment L [Aut omated message] 717-3) The system [employer] generated this result transmitted ref erence range: 150 - 45 0 K/CU MM. The referen ce range was not u sed to interpret this result as normal/abnor mal. MPV (test code = 11.0 fL 9.4-12.3 53665-6) nRBC (test code = 413) 0 See_Comment [Aut omated message] The system [employer] generated this result transmitted ref erence range: [...] See_Comment [Aut omated message] 670) The system [employer] generated this result transmitted ref erence range: 1.56 - 6 .13 K/L. The refe rence range was not u sed to interpret this result as normal/abnor mal. # Lymphs (test code = 0.73 See_Comment L [Auto mated message] 414) The system [employer] generated this result transmitted ref erence range: 1.18 - 3 .74 K/L. The refe rence range was not u sed to interpret this result as normal/abnor mal. # Monos (test code = 0.62 See_Comment H [Autom ated message] 415) The system [employer] generated this result transmitted ref erence range: 0.24 - 0 .36 K/L. The refe rence range was not u sed to interpret this result as normal/abnor mal. # Eos (test code = 416) 0.24 See_Comment [Au tomated message] The system [employer] generated this result transmitted ref erence range: 0.04 - 0 .36 K/L. The refe rence range was not u sed to interpret this result as normal/abnor mal. # Baso (test code = 417) 0.04 See_Comment [A utomated message] The system [employer] generated this result transmitted ref erence range: 0.01 - 0 .08 K/L. The refe rence range was not u sed to interpret this result as normal/abnor mal. Immature 0 % 0-1 Granulocytes-Relative (test code = 2801) Lab Interpretation (test Abnormal code = 48763-9) [facility] with platelet count + automated [id number] 15:34:06 Test Item Value Reference Range Interpretation Comments WBC (test code = 6690-2) 4.6 See_Comment [A utomated message] The system [employer] generated this result transmitted ref erence range: 3.5 - 10 .5 K/L. The refe rence range was not u sed to interpret this result as normal/abnor mal. RBC (test code = 789-8) 2.86 See_Comment L [Au tomated message] The system [employer] generated this result transmitted ref erence range: 3.93 - 5 .22 M/L. The refe rence range was not u sed to interpret this result as normal/abnor mal. MCHC (test code = 786-4) 32.1 See_Comment L [A utomated message] The system [employer] generated this result transmitted ref erence range: [...] L [Aut omated message] 777-3) The system [employer] generated this result transmitted ref erence range: 150 - 45 0 K/CU MM. The referen ce range was not u sed to interpret this result as normal/abnor mal. MPV (test code = 11.0 fL 9.4-12.3 53958-8) nRBC (test code = 413) 0 See_Comment [Aut omated message] The system [employer] generated this result transmitted ref erence range: [...] See_Comment [Aut omated message] 670) The system [employer] generated this result transmitted ref erence range: 1.56 - 6 .13 K/L. The refe rence range was not u sed to interpret this result as normal/abnor mal. # Lymphs (test code = 0.73 See_Comment L [Auto mated message] 414) The system [employer] generated this result transmitted ref erence range: 1.18 - 3 .74 K/L. The refe rence range was not u sed to interpret this result as normal/abnor mal. # Monos (test code = 0.62 See_Comment H [Autom ated message] 415) The system [employer] generated this result transmitted ref erence range: 0.24 - 0 .36 K/L. The refe rence range was not u sed to interpret this result as normal/abnor mal. # Eos (test code = 416) 0.24 See_Comment [Au tomated message] The system [employer] generated this result transmitted ref erence range: 0.04 - 0 .36 K/L. The refe rence range was not u sed to interpret this result as normal/abnor mal. # Baso (test code = 417) 0.04 See_Comment [A utomated message] The system [employer] generated this result transmitted ref erence range: 0.01 - 0 .08 K/L. The refe rence range was not u sed to interpret this result as normal/abnor mal. Immature 0 % 0-1 Granulocytes-Relative (test code = 2801) Lab Interpretation (test Abnormal code = 72171-2) [facility] with platelet count + automated [id number] 15:34:06 Test Item Value Reference Range Interpretation Comments WBC (test code = 6690-2) 4.6 See_Comment [A utomated message] The system [employer] generated this result transmitted ref erence range: 3.5 - 10 .5 K/L. The refe rence range was not u sed to interpret this result as normal/abnor mal. RBC (test code = 789-8) 2.86 See_Comment L [Au tomated message] The system [employer] generated this result transmitted ref erence range: 3.93 - 5 .22 M/L. The refe rence range was not u sed to interpret this result as normal/abnor mal. MCHC (test code = 786-4) 32.1 See_Comment L [A utomated message] The system [employer] generated this result transmitted ref erence range: [...] L [Aut omated message] 777-3) The system [employer] generated this result transmitted ref erence range: 150 - 45 0 K/CU MM. The referen ce range was not u sed to interpret this result as normal/abnor mal. MPV (test code = 11.0 fL 9.4-12.3 55374-6) nRBC (test code = 413) 0 See_Comment [Aut omated message] The system [employer] generated this result transmitted ref erence range: [...] See_Comment [Aut omated message] 670) The system [employer] generated this result transmitted ref erence range: 1.56 - 6 .13 K/L. The refe rence range was not u sed to interpret this result as normal/abnor mal. # Lymphs (test code = 0.73 See_Comment L [Auto mated message] 414) The system [employer] generated this result transmitted ref erence range: 1.18 - 3 .74 K/L. The refe rence range was not u sed to interpret this result as normal/abnor mal. # Monos (test code = 0.62 See_Comment H [Autom ated message] 415) The system [employer] generated this result transmitted ref erence range: 0.24 - 0 .36 K/L. The refe rence range was not u sed to interpret this result as normal/abnor mal. # Eos (test code = 416) 0.24 See_Comment [Au tomated message] The system [employer] generated this result transmitted ref erence range: 0.04 - 0 .36 K/L. The refe rence range was not u sed to interpret this result as normal/abnor mal. # Baso (test code = 417) 0.04 See_Comment [A utomated message] The system [employer] generated this result transmitted ref erence range: 0.01 - 0 .08 K/L. The refe rence range was not u sed to interpret this result as normal/abnor mal. Immature 0 % 0-1 Granulocytes-Relative (test code = 2801) Lab Interpretation (test Abnormal code = 73575-8) [facility] with platelet count + automated [id number] 15:34:06 Test Item Value Reference Range Interpretation Comments WBC (test code = 6690-2) 4.6 See_Comment [A utomated message] The system [employer] generated this result transmitted ref erence range: 3.5 - 10 .5 K/L. The refe rence range was not u sed to interpret this result as normal/abnor mal. RBC (test code = 789-8) 2.86 See_Comment L [Au tomated message] The system [employer] generated this result transmitted ref erence range: 3.93 - 5 .22 M/L. The refe rence range was not u sed to interpret this result as normal/abnor mal. MCHC (test code = 786-4) 32.1 See_Comment L [A utomated message] The system [employer] generated this result transmitted ref erence range: [...] L [Aut omated message] 777-3) The system [employer] generated this result transmitted ref erence range: 150 - 45 0 K/CU MM. The referen ce range was not u sed to interpret this result as normal/abnor mal. MPV (test code = 11.0 fL 9.4-12.3 32723-6) nRBC (test code = 413) 0 See_Comment [Aut omated message] The system [employer] generated this result transmitted ref erence range: [...] See_Comment [Aut omated message] 670) The system [employer] generated this result transmitted ref erence range: 1.56 - 6 .13 K/L. The refe rence range was not u sed to interpret this result as normal/abnor mal. # Lymphs (test code = 0.73 See_Comment L [Auto mated message] 414) The system [employer] generated this result transmitted ref erence range: 1.18 - 3 .74 K/L. The refe rence range was not u sed to interpret this result as normal/abnor mal. # Monos (test code = 0.62 See_Comment H [Autom ated message] 415) The system [employer] generated this result transmitted ref erence range: 0.24 - 0 .36 K/L. The refe rence range was not u sed to interpret this result as normal/abnor mal. # Eos (test code = 416) 0.24 See_Comment [Au tomated message] The system [employer] generated this result transmitted ref erence range: 0.04 - 0 .36 K/L. The refe rence range was not u sed to interpret this result as normal/abnor mal. # Baso (test code = 417) 0.04 See_Comment [A utomated message] The system [employer] generated this result transmitted ref erence range: 0.01 - 0 .08 K/L. The refe rence range was not u sed to interpret this result as normal/abnor mal. Immature 0 % 0-1 Granulocytes-Relative (test code = 2801) Lab Interpretation (test Abnormal code = 06557-3) [facility] with platelet count + automated [id number] 15:34:06 Test Item Value Reference Range Interpretation Comments WBC (test code = 6690-2) 4.6 See_Comment [A utomated message] The system [employer] generated this result transmitted ref erence range: 3.5 - 10 .5 K/L. The refe rence range was not u sed to interpret this result as normal/abnor mal. RBC (test code = 789-8) 2.86 See_Comment L [Au tomated message] The system [employer] generated this result transmitted ref erence range: 3.93 - 5 .22 M/L. The refe rence range was not u sed to interpret this result as normal/abnor mal. MCHC (test code = 786-4) 32.1 See_Comment L [A utomated message] The system [employer] generated this result transmitted ref erence range: [...] L [Aut omated message] 777-3) The system [employer] generated this result transmitted ref erence range: 150 - 45 0 K/CU MM. The referen ce range was not u sed to interpret this result as normal/abnor mal. MPV (test code = 11.0 fL 9.4-12.3 95022-5) nRBC (test code = 413) 0 See_Comment [Aut omated message] The system [employer] generated this result transmitted ref erence range: [...] See_Comment [Aut omated message] 670) The system [employer] generated this result transmitted ref erence range: 1.56 - 6 .13 K/L. The refe rence range was not u sed to interpret this result as normal/abnor mal. # Lymphs (test code = 0.73 See_Comment L [Auto mated message] 414) The system [employer] generated this result transmitted ref erence range: 1.18 - 3 .74 K/L. The refe rence range was not u sed to interpret this result as normal/abnor mal. # Monos (test code = 0.62 See_Comment H [Autom ated message] 415) The system [employer] generated this result transmitted ref erence range: 0.24 - 0 .36 K/L. The refe rence range was not u sed to interpret this result as normal/abnor mal. # Eos (test code = 416) 0.24 See_Comment [Au tomated message] The system [employer] generated this result transmitted ref erence range: 0.04 - 0 .36 K/L. The refe rence range was not u sed to interpret this result as normal/abnor mal. # Baso (test code = 417) 0.04 See_Comment [A utomated message] The system [employer] generated this result transmitted ref erence range: 0.01 - 0 .08 K/L. The refe rence range was not u sed to interpret this result as normal/abnor mal. Immature 0 % 0-1 Granulocytes-Relative (test code = 2801) Lab Interpretation (test Abnormal code = 56384-5) [facility] with platelet count + automated [id number] 15:34:06 Test Item Value Reference Range Interpretation Comments WBC (test code = 6690-2) 4.6 See_Comment [A utomated message] The system [employer] generated this result transmitted ref erence range: 3.5 - 10 .5 K/L. The refe rence range was not u sed to interpret this result as normal/abnor mal. RBC (test code = 789-8) 2.86 See_Comment L [Au tomated message] The system [employer] generated this result transmitted ref erence range: 3.93 - 5 .22 M/L. The refe rence range was not u sed to interpret this result as normal/abnor mal. MCHC (test code = 786-4) 32.1 See_Comment L [A utomated message] The system [employer] generated this result transmitted ref erence range: [...] = 57 See_Comment L [Aut omated message] 597-3) The system [employer] generated this result transmitted ref erence range: 150 - 45 0 K/CU MM. The referen ce range was not u sed to interpret this result as normal/abnor mal. MPV (test code = 11.0 fL 9.4-12.3 81331-1) nRBC (test code = 413) 0 See_Comment [Aut omated message] The system [employer] generated this result transmitted ref erence range: [...] See_Comment [Aut omated message] 670) The system [employer] generated this result transmitted ref erence range: 1.56 - 6 .13 K/L. The refe rence range was not u sed to interpret this result as normal/abnor mal. # Lymphs (test code = 0.73 See_Comment L [Auto mated message] 414) The system [employer] generated this result transmitted ref erence range: 1.18 - 3 .74 K/L. The refe rence range was not u sed to interpret this result as normal/abnor mal. # Monos (test code = 0.62 See_Comment H [Autom ated message] 415) The system [employer] generated this result transmitted ref erence range: 0.24 - 0 .36 K/L. The refe rence range was not u sed to interpret this result as normal/abnor mal. # Eos (test code = 416) 0.24 See_Comment [Au tomated message] The system [employer] generated this result transmitted ref erence range: 0.04 - 0 .36 K/L. The refe rence range was not u sed to interpret this result as normal/abnor mal. # Baso (test code = 417) 0.04 See_Comment [A utomated message] The system [employer] generated this result transmitted ref erence range: 0.01 - 0 .08 K/L. The refe rence range was not u sed to interpret this result as normal/abnor mal. Immature 0 % 0-1 Granulocytes-Relative (test code = 2801) Lab Interpretation (test Abnormal code = 61334-6) [facility] W/PLT COUNT & AUTO [id number] 15:34:06 Test Item Value Reference Range Interpretation [...] PERCENT (BEAKER) (test code = 2801) POCT-GLUCOSE [id number] 12:42:57 Test Item Value Reference Range Interpretation Comments POC-GLUCOSE METER 216 mg/dL 70-110 H : TESTED A T [facility] 6720 (BEAKER) (test code = [place], 1538) [address]: Control Technician/Techni kelle ID = [id number] for Kayla Emanuel Prepare Leuko-Red [id number] 10:49:00 Test Item Value Reference Range Interpretation Comments CROSSMATCH (test code = 2264) COMPATIBLE Unit ABO (test code = O Pos [id number]) UNIT NUMBER (test code = [id number] 934-0) Status (test code = 1035167) ISSUED Blood Bank Product (test code RED BLOOD CELLS = 2263) PRODUCT CODE (test code = B2644Z39 933-2) [facility] [id number] 10:49:00 Test Item Value Reference Range Interpretation Comments CROSSMATCH (test code = 2264) COMPATIBLE Unit ABO (test code = O Pos 4457203) UNIT NUMBER (test code = [id number] 934-0) Status (test code = 6098674) ISSUED Blood Bank Product (test code RED BLOOD CELLS = 2263) PRODUCT CODE (test code = [id number] 933-2) [facility] [id number] 10:49:00 Test Item Value Reference Range Interpretation Comments CROSSMATCH (test code = 2264) COMPATIBLE Unit ABO (test code = O Pos 7524528) UNIT NUMBER (test code = [id number] 934-0) Status (test code = 4709326) ISSUED Blood Bank Product (test code RED BLOOD CELLS = 2263) PRODUCT CODE (test code = W8948H17 933-2) [facility] [id number] 08:43:51 Test Item Value Reference Range Interpretation Comments POC-GLUCOSE METER 209 mg/dL 70-110 H : TESTED A T [facility] 67[facility] (BEAKER) (test code = [place], 1538) [address]: Control Technician/Techni kelle ID = [id number] for Kayla Emanuel RAD, CHEST, 1 VIEW, NON [id number] 07:26:00Reason for exam:->post-opShould this be performed at the bedside?->Yes [facility] : 1955 Sex: [...] Cosme Verified Date/Time: 06/28/2021 07:26:22 BASIC METABOLIC [id number] 04:56:45 Test Item Value Reference Range Interpretation [...] S NOT APPLICABLE FOR DIALYSIS PATIEN TS. Control Technician ID - LIANA [id number] 04:48:49 Test Item Value Reference Range Interpretation Comments MAGNESIUM (BEAKER) 2.0 mg/dL 1.6-2.6 Specimen slightly (test code = 627) hemolyzed Control Technician ID - LIANA [id number] 04:48:49 Test Item Value Reference Range Interpretation Comments PHOSPHORUS (BEAKER) 2.5 mg/dL 2.3-4.7 Specimen slightly (test code = 604) hemolyzed Control Technician ID - LIANA LCBC (HEMOGRAM ONLY)2021-06-28 04:28:17 [...] WBC 0-0 (test code = 413) POCT-GLUCOSE [id number] 21:38:17 Test Item Value Reference Range Interpretation Comments POC-GLUCOSE METER 200 mg/dL 70-110 H : TESTED A T [facility] 6720 (BEAKER) (test code = [facility], 1538) 71863: Control Technician/Techni kelle ID = [id number] for RO JOSIE DANIELSO POCT-GLUCOSE [id number] 18:02:45 Test Item Value Reference Range Interpretation Comments POC-GLUCOSE METER 217 mg/dL 70-110 H : TESTED A T [facility] 6720 (BEAKER) (test code = [facility], 1538) 64254: Control Technician/Techni kelle ID = [id number] for Ba rrera, Kayla POCT-GLUCOSE [id number] 15:14:18 Test Item Value Reference Range Interpretation Comments POC-GLUCOSE METER 229 mg/dL 70-110 H : TESTED A T [facility] 6720 (BEAKER) (test code = [facility], 1538) 92790: Control Technician/Techni kelle ID = [id number] for Ba rrera, Kayla POCT-GLUCOSE [id number] 12:20:23 Test Item Value Reference Range Interpretation Comments POC-GLUCOSE METER 160 mg/dL 70-110 H : TESTED A T [facility] 6720 (BEAKER) (test code = [facility], 1538) 12875: Control Technician/Techni kelle ID = [id number] for Ba rrera, Kayla SARS-CoV2/RT-PCR (Asymptomatic ONLY)2021-06-27 10:39:35 Test Item Value Reference Range Interpretation Comments SARS-COV2/RT-PCR Negative Not Detected, (test code = Negative, See 73889-0) external report for linked test SARS-COV-2 [facility] PERFORMING [facility] (test code = 86160-7) BRANDI (test code = Negative result for [...] of the Act. Fact Sheet for Healthcare Providers:https://www.[employer] idel.[employer]Gene/sites/default/f radha/product/documents/F act_Sheet_HC_Providers_L hoj_MGGY-ZuA-5.pdf Fact Sheet for Healthcare Patients:https://www.ankur del.com/sites/default/fi les/product/documents/Fa ct_Sheet_Patients_Lyra_S ARS-CoV-2.pdf Performing Laboratory:[facility] [place] [address] [facility]2021-06-27 10:39:35 Test Item Value Reference Range Interpretation Comments SARS-COV2/RT-PCR Negative Not Detected, (test code = Negative, See 29566-4) external report for linked test SARS-COV-2 [facility] PERFORM[facility] (test code = 46290-6) BRANDI (test code = Negative result for [...] of the Act. Fact Sheet for Healthcare Providers:https://www.[facility] [employer] ideJule Game.ImmunGene/sites/default/f radha/product/documents/F act_Sheet_HC_Providers_L gvl_KUSI-VgQ-1.pdf Fact Sheet for Healthcare Patients:https://www.[employer] del.ImmunGene/sites/default/fi les/product/documents/Fa ct_Sheet_Patients_Lyra_S ARS-CoV-2.pdf Performing Laboratory:[facility] [place] [address] [facility] (As[facility]omatic ONLY)2021-06-27 10:39:35 Test Item Value Reference Range Interpretation Comments SARS-COV2/RT-PCR Negative Not Detected, (test code = Negative, See 74147-9) external report for linked test SARS-COV-2 [facility] PER[facility] (test code = 08510-1) BRANDI (test code = Negative result for [...] of the Act. Fact Sheet for Healthcare Providers:https://www.[employer]Gene/sites/default/f radha/product/documents/F act_Sheet_HC_Providers_L hke_KMZA-RcC-1.pdf Fact Sheet for Healthcare Patients:https://www.[employer].com/sites/default/fi les/product/documents/Fa ct_Sheet_Patients_Alicia_S ARS-CoV-2.pdf Performing Laboratory:[facility] [place] [address] [facility] (Asymptomatic ONLY)2021-06-27 10:39:35 Test Item Value Reference Range Interpretation Comments SARS-COV2/RT-PCR Negative Not Detected, (test code = Negative, See 01631-1) external report for linked test SARS-COV-2 [facility] PERFORM[facility] (test code = 48512-6) BRANDI (test code = Negative result for [...] of the Act. Fact Sheet for Healthcare Providers:https://www.[employer]Gene/sites/default/f radha/product/documents/F act_Sheet_HC_Providers_L qqp_CKHY-OhH-1.pdf Fact Sheet for Healthcare Patients:https://www.[employer].ImmunGene/sites/default/fi les/product/documents/Fa ct_Sheet_Patients_Ly_S ARS-CoV-2.pdf Performing Laboratory:[facility], [place] [address] [place], [place] [address]ARS-CoV2/RT-PCR (Asymptomatic ONLY)2021-06-27 10:39:35 Test Item Value Reference Range Interpretation Comments SARS-COV2/RT-PCR Negative Not Detected, (test code = Negative, See 07979-3) external report for linked test SARS-COV-2 [facility] (test code = 94193-3) BRANDI (test code = Negative result for [...] of the Act. Fact Sheet for Healthcare Providers:https://www.[employer]/sites/default/f radha/product/documents/F act_Sheet_HC_Providers_L zrs_MUJU-XwZ-1.pdf Fact Sheet for Healthcare Patients:https://www.M[employer]/sites/default/fi les/product/documents/Fa ct_Sheet_Patients_Lyra_S ARS-CoV-2.pdf Performing Laboratory:[facility] [place] [address] [facility] (Asymptomatic ONLY)2021-06-27 10:39:35 Test Item Value Reference Range Interpretation Comments SARS-COV2/RT-PCR Negative Not Detected, (test code = Negative, See 11787-3) external report for linked test SARS-COV-2 [facility] (test code = 85223-4) BRANDI (test code = Negative result for [...] of the Act. Fact Sheet for Healthcare Providers:https://www.[employer]/sites/default/f radha/product/documents/F act_Sheet_HC_Providers_L lqa_RZUP-TyV-4.pdf Fact Sheet for Healthcare Patients:https://www.M[employer]/sites/default/fi les/product/documents/Fa ct_Sheet_Patients_Lyra_S ARS-CoV-2.pdf Performing Laboratory:[facility]CoV2/RT-PCR (Asymptomatic ONLY)2021-06-27 10:39:35 Test Item Value Reference Range Interpretation Comments SARS-COV2/RT-PCR Negative Not Detected, (test code = Negative, See 07508-3) external report for linked test SARS-COV-2 [facility] (test code = 09465-7) BRANDI (test code = Negative result for [...] of the Act. Fact Sheet for Healthcare Providers:https://www.[employer]/sites/default/f radha/product/documents/F act_Sheet_HC_Providers_L avu_TMEO-LmD-1.pdf Fact Sheet for Healthcare Patients:https://www.M[employer]/sites/default/fi les/product/documents/Fa ct_Sheet_Patients_Lyra_S ARS-CoV-2.pdf Performing Laboratory:[place] [address]-COV2/RT-PCR ([facility])2021-06-27 10:39:35 Test Item Value Reference Range Interpretation Comments SARS-COV2/RT-PCR (test Negative Not Detected, Negative, code = 7848821) See external report for linked test SARS-COV-2 PERFORMING LAB [facility] (test code = 2284290) Negative result for this test determines that [...] of the Act.Fact Sheet for Healthcare Prov iders:https://www.Enish/sites/default/files/product/documents/Fact_Sheet_HC _Uojfacnud_Rttx_WPTW-EpV-3.pdfFact Sheet for Healthcare Patients:https://www.Enish/sites/default/files/product/docume nts/Vvso_Fwgbz_Ruthanqa_Eahf_ZZDS-KxF-8.pdfPerforming Laboratory:[facility], [place] [address]MQVF-FSJIOIK METER 2021-06-27 08:35:14 Test Item Value Reference Range Interpretation Comments POC-GLUCOSE METER 99 mg/dL 70-110 : TESTED A T [facility] 6720 (AKASH) (test code = [facility], 1538) 38674: Control Technician/Techni kelle ID = [id number] for Deanna kuhn Kayla RAD, CHEST, 1 VIEW, NON [id number] 08:17:00Reason for exam:->post-opShould this be performed at the bedside?->Yes [facility] : 1955 Sex: FFINAL REPORT Chest, one view HISTORY: Postoperative Comparison: 06/26/2021 Findings: Lungs: Mild bilateral interstitial opacities, likely pulmonary venous congestion. No significant change. Heart: Unchanged moderate cardiomegaly. Pleura: No pleural effusion or pneumothorax. Bones: Unremarkable. Lines/tubes: Unchanged in position. Signed: Erlin Carr MDReport Verified Date/Time: 06/27/2021 08:17:45 Reading Location: [address] Consult Reading Room BASIC METABOLIC [id number] 05:32:33 Test Item Value Reference Range Interpretation [...] S NOT APPLICABLE FOR DIALYSIS PATIEN TS. Control Technician ID - HIEN [id number] 05:23:42 Test Item Value Reference Range Interpretation Comments PHOSPHORUS (BEAKER) (test code = 2.2 mg/dL 2.3-4.7 L 604) Control Technician ID - HIEN [id number] 05:23:41 Test Item Value Reference Range Interpretation Comments MAGNESIUM (AKASH) (test code = 1.8 mg/dL 1.6-2.6 627) Control Technician ID - HIEN [id number] 05:19:04 Test Item Value Reference Range Interpretation Comments PTT (test code = 26864-8) 35.8 See_Comment [ Automated message] The system [employer] generated this result transmitted ref erence range: 22.5 - 3 6.0 seconds. The re ference range was not u sed to interpret this result as normal/abnor mal. Lab Interpretation (test Normal code = 00756-1) [facility] Test Item Value Reference Range Interpretation Comments PTT (test code = 96020-0) 35.8 See_Comment [ Automated message] The system [employer] generated this result transmitted ref erence range: 22.5 - 3 6.0 seconds. The re ference range was not u sed to interpret this result as normal/abnor mal. Lab Interpretation (test Normal code = 86562-2) [place] 73356022-03-26 05:19:04 Test Item Value Reference Range Interpretation Comments PTT (test code = 90080-5) 35.8 See_Comment [ Automated message] The system [employer] generated this result transmitted ref erence range: 22.5 - 3 6.0 seconds. The re ference range was not u sed to interpret this result as normal/abnor mal. Lab Interpretation (test Normal code = 97082-8) [facility] 05:19[facility]04 Test Item Value Reference Range Interpretation Comments PTT (test code = 65226-7) 35.8 See_Comment [ Automated message] The system [employer] generated this result transmitted ref erence range: 22.5 - 3 6.0 seconds. The re ference range was not u sed to interpret this result as normal/abnor mal. Lab Interpretation (test Normal code = 57802-7) [place] 73356022-03-26 05:19:04 Test Item Value Reference Range Interpretation Comments PTT (test code = 56486-8) 35.8 See_Comment [ Automated message] The system [employer] generated this result transmitted ref erence range: 22.5 - 3 6.0 seconds. The re ference range was not u sed to interpret this result as normal/abnor mal. Lab Interpretation (test Normal code = 79797-5) [place] 73356022-03-26 05:19:04 Test Item Value Reference Range Interpretation Comments PTT (test code = 58750-2) 35.8 See_Comment [ Automated message] The system [employer] generated this result transmitted ref erence range: 22.5 - 3 6.0 seconds. The re ference range was not u sed to interpret this result as normal/abnor mal. Lab Interpretation (test Normal code = 17259-5) [place] 73356022-03-26 05:19:04 Test Item Value Reference Range Interpretation Comments PTT (test code = 12963-1) 35.8 See_Comment [ Automated message] The system [employer] generated this result transmitted ref erence range: 22.5 - 3 6.0 seconds. The re ference range was not u sed to interpret this result as normal/abnor mal. Lab Interpretation (test Normal code = 03883-9) [place] 73356022-03-26 05:19:04 Test Item Value Reference Range Interpretation Comments PTT (test code = 73014-9) 35.8 See_Comment [ Automated message] The system [employer] generated this result transmitted ref erence range: 22.5 - 3 6.0 seconds. The re ference range was not u sed to interpret this result as normal/abnor mal. Lab Interpretation (test Normal code = 07928-6) [place] 73356022-03-26 05:19:04 Test Item Value Reference Range Interpretation Comments PTT (test code = 51414-3) 35.8 See_Comment [ Automated message] The system [employer] generated this result transmitted ref erence range: 22.5 - 3 6.0 seconds. The re ference range was not u sed to interpret this result as normal/abnor mal. Lab Interpretation (test Normal code = 97603-0) [place] 73356022-03-26 05:19:04 Test Item Value Reference Range Interpretation Comments PTT (test code = 77584-6) 35.8 See_Comment [ Automated message] The system [employer] generated this result transmitted ref erence range: 22.5 - 3 6.0 seconds. The re ference range was not u sed to interpret this result as normal/abnor mal. Lab Interpretation (test Normal code = 58546-9) [place] 73356022-03-26 05:19:04 Test Item Value Reference Range Interpretation Comments PTT (test code = 69573-2) 35.8 See_Comment [ Automated message] The system [employer] generated this result transmitted ref erence range: 22.5 - 3 6.0 seconds. The re ference range was not u sed to interpret this result as normal/abnor mal. Lab Interpretation (test Normal code = 89602-6) [place] 73356022-03-26 05:19:04 Test Item Value Reference Range Interpretation Comments PTT (test code = 47985-6) 35.8 See_Comment [ Automated message] The system [employer] generated this result transmitted ref erence range: 22.5 - 3 6.0 seconds. The re ference range was not u sed to interpret this result as normal/abnor mal. Lab Interpretation (test Normal code = 78062-2) [place] 73356022-03-26 05:19:04 Test Item Value Reference Range Interpretation Comments PTT (test code = 11063-8) 35.8 See_Comment [ Automated message] The system [employer] generated this result transmitted ref erence range: 22.5 - 3 6.0 seconds. The re ference range was not u sed to interpret this result as normal/abnor mal. Lab Interpretation (test Normal code = 32303-2) [place] 73356022-03-26 05:19:04 Test Item Value Reference Range Interpretation Comments PTT (test code = 36162-1) 35.8 See_Comment [ Automated message] The system [employer] generated this result transmitted ref erence range: 22.5 - 3 6.0 seconds. The re ference range was not u sed to interpret this result as normal/abnor mal. Lab Interpretation (test Normal code = 19553-8) [place] 73356022-03-26 05:19:04 Test Item Value Reference Range Interpretation Comments PTT (test code = 40922-5) 35.8 See_Comment [ Automated message] The system [employer] generated this result transmitted ref erence range: 22.5 - 3 6.0 seconds. The re ference range was not u sed to interpret this result as normal/abnor mal. Lab Interpretation (test Normal code = 22070-0) [facility] Test Item Value Reference Range Interpretation Comments PTT (test code = 00501-8) 35.8 See_Comment [ Automated message] The system [employer] generated this result transmitted ref erence range: 22.5 - 3 6.0 seconds. The re ference range was not u sed to interpret this result as normal/abnor mal. Lab Interpretation (test Normal code = 42687-4) [facility] 05:19:04 Test Item Value Reference Range Interpretation Comments PTT (test code = 69401-4) 35.8 See_Comment [ Automated message] The system [employer] generated this result transmitted ref erence range: 22.5 - 3 6.0 seconds. The re ference range was not u sed to interpret this result as normal/abnor mal. Lab Interpretation (test Normal code = 14486-1) [facility] Test Item Value Reference Range Interpretation Comments PARTIAL THROMBOPLASTIN TIME 35.8 seconds 22.5-36.0 (BEAKER) (test code = 760) Prothrombin time/[id number] 05:18:23 Test Item Value Reference Interpretation Comments Range Protime (test code = 13.9 See_Comment [Autom ated 5902-2) message] The system which generated this result transmitted reference range : 11.9 - 14.2 seconds. The reference range was not used to interpret this result as normal/abnormal . INR (test code = 1.09 See_Comment [Automated 6091-6) message] The system which generated this result [...] valves. Lab Interpretation Normal (test code = 66056-8) [facility]/[id number] 05:18:23 Test Item Value Reference Interpretation Comments [...] valves. Lab Interpretation Normal (test code = 58598-2) [facility]/[id number] 05:18:23 Test Item Value Reference Interpretation Comments [...] valves. Lab Interpretation Normal (test code = 10063-6) [facility] HospitalProth[facility] time/[id number] 05:18:23 Test Item Value Reference Interpretation Comments [...] valves. Lab Interpretation Normal (test code = 84008-4) [facility] time/[id number] 05:18:23 Test Item Value Reference Interpretation Comments [...] valves. Lab Interpretation Normal (test code = 80678-1) [facility] time/[id number] 05:18:23 Test Item Value Reference Interpretation Comments [...] valves. Lab Interpretation Normal (test code = 53114-9) [facility] HospitalProthrom[facility] time/[id number] 05:18:23 Test Item Value Reference Interpretation Comments Range Protime (test code = 13.9 See_Comment [Autom ated 5902-2) message] The system which generated this result transmitted reference range : 11.9 - 14.2 seconds. The reference range was not used to interpret this result as normal/abnormal . INR (test code = 1.09 See_Comment [Automated [employer]1-6) message] The system which generated this result [...] valves. Lab Interpretation Normal (test code = 76931-6) [facility] HospitalProthrombin time/[id number] 05:18:23 Test Item Value Reference Interpretation Comments [...] valves. Lab Interpretation Normal (test code = 23088-6) [facility] HospitalProth[facility] time/[id number] 05:18:23 Test Item Value Reference Interpretation Comments [...] valves. Lab Interpretation Normal (test code = 37332-0) [facility]Pro[facility] time/[id number] 05:18:23 Test Item Value Reference Interpretation Comments [...] valves. Lab Interpretation Normal (test code = 00617-6) [facility] HospitalProthrom[facility] time/[id number] 05:18:23 Test Item Value Reference Interpretation Comments [...] valves. Lab Interpretation Normal (test code = 51512-9) [facility] HospitalProth[facility] time/[id number] 05:18:23 Test Item Value Reference Interpretation Comments [...] valves. Lab Interpretation Normal (test code = 61322-4) [facility] HospitalProthrombin time/[id number] 05:18:23 Test Item Value Reference Interpretation Comments [...] valves. Lab Interpretation Normal (test code = 14732-2) [facility] HospitalProth[facility] time/[id number] 05:18:23 Test Item Value Reference Interpretation Comments [...] valves. Lab Interpretation Normal (test code = 79474-6) [facility] HospitalProth[facility] time/[id number] 05:18:23 Test Item Value Reference Interpretation Comments [...] valves. Lab Interpretation Normal (test code = 30540-8) [facility] HospitalProthrombin time/[id number] 05:18:23 Test Item Value Reference Interpretation Comments [...] valves. Lab Interpretation Normal (test code = 09910-5) [facility] HospitalProthrombin time/[id number] 05:18:23 Test Item Value Reference Interpretation Comments [...] valves. Lab Interpretation Normal (test code = 42359-3) [facility] HospitalPROTHROMBIN TIME/[id number] 05:18:23 Test Item Value Reference Range Interpretation Comments PROTIME (BEAKER) 13.9 seconds 11.9-14.2 (test code = 759) INR (BEAKER) (test 1.09 See_Comment [Automat ed message] code = 370) The system [employer] generated this result transmitted ref erence range: [...] WBC 0-0 (test code = 413) POCT-GLUCOSE [id number] 21:11:10 Test Item Value Reference Range Interpretation Comments POC-GLUCOSE METER 158 mg/dL 70-110 H : TESTED A T [facility] 6720 (BEAKER) (test code = [place], 1538) 55911: Control Technician/Techni kelle ID = [id number] for Re yes, Sairy POCT-GLUCOSE [id number] 19:06:56 Test Item Value Reference Range Interpretation Comments POC-GLUCOSE METER 113 mg/dL 70-110 H : TESTED A T [facility] 6720 (BEAKER) (test code [facility], = 1538) 29227: Control Technician/Techni kelle ID = [id number] for Sutt on, Fadi Hemoglobin and [id number] 11:43:32 Test Item Value Reference Range Interpretation [...] = 4544-3) BRANDI (test code = BRANDI) Control Technician ID - [id number] Lab Interpretation Abnormal (test code = 12170-2) [facility] HospitalHem[facility] and [id number] 11:43:32 Test Item Value Reference Range Interpretation [...] = 4544-3) BRANDI (test code = BRANDI) Control Technician ID - [id number] Lab Interpretation Abnormal (test code = 88316-4) [facility] HospitalHem[facility] and nlsoqpgzyc6854-10-58 11:43:32 Test Item Value Reference Range Interpretation [...] = 4544-3) BRANDI (test code = BRANDI) Control Technician ID - [id number] Lab Interpretation Abnormal (test code = 36581-9) [facility] HospitalH[facility] and waxnuwjboa0603-45-76 11:43:32 Test Item Value Reference Range Interpretation [...] = 4544-3) BRANDI (test code = BRANDI) Control Technician ID - [id number] Lab Interpretation Abnormal (test code = 35384-2) [facility] Hospital[facility] and gqrxzxyqgu9779-93-29 11:43:32 Test Item Value Reference Range Interpretation [...] = 4544-3) BRANDI (test code = BRANDI) Control Technician ID - [id number] Lab Interpretation Abnormal (test code = 29566-8) [facility] HospitalH[facility] and [id number] 11:43:32 Test Item Value Reference Range Interpretation [...] = 4544-3) BRANDI (test code = BRANDI) Control Technician ID - [id number] Lab Interpretation Abnormal (test code = 69136-6) [facility] HospitalH[facility] and coykrswqpf4628-09-05 11:43:32 Test Item Value Reference Range Interpretation [...] = 4544-3) BRANDI (test code = BRANDI) Control Technician ID - [id number] Lab Interpretation Abnormal (test code = 77882-3) [facility] HospitalH[facility] and gsqxuziqnw0594-43-36 11:43:32 Test Item Value Reference Range Interpretation [...] = 4544-3) BRANDI (test code = BRANDI) Control Technician ID - [id number] Lab Interpretation Abnormal (test code = 64904-5) [facility] HospitalH[facility] and kiekmzwfxz2554-40-36 11:43:32 Test Item Value Reference Range Interpretation [...] = 4544-3) BRANDI (test code = BRANDI) Control Technician ID - [id number] Lab Interpretation Abnormal (test code = 74641-5) [facility] HospitalH[facility] and gttlzrcwrz1639-24-06 11:43:32 Test Item Value Reference Range Interpretation [...] = 4544-3) BRANDI (test code = BRANDI) Control Technician ID - [id number] Lab Interpretation Abnormal (test code = 06345-4) [facility] HospitalH[facility] and natdrvbadz2115-66-36 11:43:32 Test Item Value Reference Range Interpretation [...] = 4544-3) BRANDI (test code = BRANDI) Control Technician ID - [id number] Lab Interpretation Abnormal (test code = 00128-2) [facility] HospitalH[facility] and nmxlqfcyum4065-68-04 11:43:32 Test Item Value Reference Range Interpretation [...] = 4544-3) BRANDI (test code = BRANDI) Control Technician ID - [id number] Lab Interpretation Abnormal (test code = 06567-6) [facility] HospitalHem[facility] and buiwqylggk1782-36-93 11:43:32 Test Item Value Reference Range Interpretation [...] = 4544-3) BRANDI (test code = BRANDI) Control Technician ID - [id number] Lab Interpretation Abnormal (test code = 14106-8) [facility] HospitalHemoglobin and [id number] 11:43:32 Test Item Value Reference Range Interpretation [...] = 4544-3) BRANDI (test code = BRANDI) Control Technician ID - [id number] Lab Interpretation Abnormal (test code = 64854-9) [facility] iizptdcbdy0027-80-65 11:43:32 Test Item Value Reference Range Interpretation [...] = 4544-3) BRANDI (test code = BRANDI) Control Technician ID - [id number] Lab Interpretation Abnormal (test code = 87071-4) [facility] HospitalHem[facility] and nfrdcxsfxg3624-42-13 11:43:32 Test Item Value Reference Range Interpretation [...] = 4544-3) BRANDI (test code = BRANDI) Control Technician ID - [id number] Lab Interpretation Abnormal (test code = 81046-2) [facility] HospitalHem[facility] and mpbuqdjrnt0858-51-89 11:43:32 Test Item Value Reference Range Interpretation [...] = 4544-3) BRANDI (test code = BRANDI) Control Technician ID - [id number] Lab Interpretation Abnormal (test code = 23172-4) [facility] HospitalH[facility] and yuvahooqpb9834-60-37 11:43:32 Test Item Value Reference Range Interpretation [...] = 4544-3) BRANDI (test code = BRANDI) Control Technician ID - [id number] Lab Interpretation Abnormal (test code = 74766-4) [facility] HospitalHEMOGLOBIN AND [id number] 11:43:32 Test Item Value Reference Range Interpretation Comments HEMOGLOBIN (BEAKER) (test code = 8.5 GM/DL 11.2-15.7 L 410) HEMATOCRIT (BEAKER) (test code = 26.8 % 34.1-44.9 L 411) Control Technician ID - 6000POC-Glucose zdaie5005-24-04 11:26:36 Test Item Value Reference Range Interpretation Comments POC-Glucose Meter (test 126 mg/dL 70-110 H : TE STED AT [facility] code = 1538) [address] [facility], [address]: Control Technician/Techni kelle ID = [id number] for Gala (contract)Meeta Lab Interpretation (test Abnormal code = 23957-5) [facility] HospitalPO[facility]GLUCOSE [id number] 11:26:36 Test Item Value Reference Range Interpretation Comments POC-GLUCOSE METER 126 mg/dL 70-110 H : TESTED A T [facility] [address] ([place]) (test code = YUDY [place] [facility], 1538) [address]: Control Technician/Techni kelle ID = [id number] for Brando tone (contract)Marilee POCT-GLUCOSE [id number] 09:38:49 Test Item Value Reference Range Interpretation Comments POC-GLUCOSE METER 139 mg/dL 70-110 H : TESTED A T [facility] 6720 ([place]) (test code = [facility] [place] [facility], 1538) [address]: Control Technician/Techni kelle ID = [id number] for SWEETIE GASPAR, TUNNELED CATHETER [id number] 08:44:00Reason for Central Line/PICC?->> 21 days of IV infusionReason for exam:->needs antibiotics > 10 days, ESRD, Nephrology does not approve PICC or midline. [facility] : 1955 Sex: [...] MDReport Verified Date/Time: 06/26/2021 08:44:45 Reading Location: [place] [address] Angio Body Reading Room RAD, CHEST, 1 VIEW, NON [id number] 08:08:00Reason for exam:->post-opShould this be performed at the bedside?->Yes [facility] : 1955 Sex: [...] Cain Verified Date/Time: 06/26/2021 08:08:37 Reading Location: [facility] Radiology Reading Room Prepare Leuko-Red [id number] 06:01:00 Test Item Value Reference Range Interpretation Comments CROSSMATCH (test code = 2264) COMPATIBLE Unit ABO (test code = O Pos 6482566) UNIT NUMBER (test code = [id number] 934-0) Status (test code = 6831782) ISSUED Blood Bank Product (test code RED BLOOD CELLS = 2263) PRODUCT CODE (test code = S7889E18 933-2) [facility] HospitalPrepare Leuko-Red [id number] 06:01:00 Test Item Value Reference Range Interpretation Comments CROSSMATCH (test code = 2264) COMPATIBLE Unit ABO (test code = O Pos 9924144) UNIT NUMBER (test code = [id number] 934-0) Status (test code = 4852363) ISSUED Blood Bank Product (test code RED BLOOD CELLS = 2263) PRODUCT CODE (test code = I8361K45 933-2) [facility] Metabolic [id number] 05:17:06 Test Item Value Reference Range Interpretation Comments Sodium (test code = 139 meq/L 822-086 7363-2) Potassium (test code = 3.7 meq/L 3.5-5.1 2823-3) Chloride (test code = 104 meq/L 98-107 2075-0) CO2 (test code = 23 meq/L -29 2027-9) BUN (test code = 36 mg/dL 7-21 H 3094-0) Creatinine (test code 5.14 mg/dL 0.57-1.25 H = 2160-0) Glucose (test code = 170 mg/dL 70-105 H 2345-7) Calcium (test code = 8.2 mg/dL 8.4-10.2 L 21963-2) EGFR (test code = 8 mL/min/1.73 [place] [address]-3) NOT ACCURATE CREATININE CLEARANCE IN PREDICTING GLOMERULAR FILTRATION RATE . ESTIMATED GFR I S NOT APPLICABLE FOR DIALYSIS PATIENTS. BRANDI (test code = BRANDI) Control Technician ID - RAKAN [place] Lab Interpretation Abnormal (test code = 64037-0) [facility] Metabolic [id number] 05:17:06 Test Item Value Reference Range Interpretation Comments Sodium (test code = 139 meq/L 904-355 3162-2) Potassium (test code = 3.7 meq/L 3.5-5.1 2823-3) Chloride (test code = 104 meq/L 98-107 2075-0) CO2 (test code = 23 meq/L -29 2027-9) BUN (test code = 36 mg/dL 7-21 H 3094-0) Creatinine (test code 5.14 mg/dL 0.57-1.25 H = 2160-0) Glucose (test code = 170 mg/dL 70-105 H 2345-7) Calcium (test code = 8.2 mg/dL 8.4-10.2 L 61713-2) EGFR (test code = 8 mL/min/1.[place] [address]-3) NOT ACCURATE CREATININE CLEARANCE IN PREDICTING GLOMERULAR FILTRATION RATE . ESTIMATED GFR I S NOT APPLICABLE FOR DIALYSIS PATIENTS. BRANDI (test code = BRANDI) Control Technician ID Bassam BLEDSOE Annetta Lab Interpretation Abnormal (test code = 87026-2) [facility] HospitalBASIC METABOLIC [id number] 05:17:06 Test Item Value Reference Range Interpretation [...] S NOT APPLICABLE FOR DIALYSIS PATIEN TS. Control Technician ID Bassam BLEDSOE SJxawodknzp7407-62-90 05:00:22 Test Item Value Reference Range Interpretation Comments Phosphorus (test code = 3.7 mg/dL 2.3-4.7 2777-1) BRANDI (test code = BRANDI) Control Technician ID Bassam KAURNA W Lab Interpretation (test Normal code = 63557-6) [facility] HospitalPhosphorus2022-03-25 05:00:22 Test Item Value Reference Range Interpretation Comments Phosphorus (test code = 3.7 mg/dL 2.3-4.7 2777-1) BRANDI (test code = BRANDI) Control Technician ID - RAKAN W Lab Interpretation (test Normal code = 15034-4) [facility] HospitalPHOSPHORUS2022-03-25 05:00:22 Test Item Value Reference Range Interpretation Comments PHOSPHORUS (BEAKER) (test code = 3.7 mg/dL 2.3-4.7 604) Control Technician ID - RAKAN EXjxmgmklq5075-07-49 05:00:21 Test Item Value Reference Range Interpretation Comments Magnesium (test code = 2.2 mg/dL 1.6-2.6 38022-9) BRANDI (test code = BRANDI) Control Technician ID - RAKAN W Lab Interpretation (test Normal code = 48384-7) [facility] HospitalMagnesium2022-03-25 05:00:21 Test Item Value Reference Range Interpretation Comments Magnesium (test code = 2.2 mg/dL 1.6-2.6 93887-5) BRANDI (test code = BRANDI) Control Technician ID - RAKAN W Lab Interpretation (test Normal code = 04416-7) [facility] 05:00:21 Test Item Value Reference Range Interpretation Comments MAGNESIUM (BEAKER) (test code = 2.2 mg/dL 1.6-2.6 627) Control Technician ID - RAKAN [id number] 04:21:04 Test Item Value Reference Range Interpretation Comments PTT (test code = 58342-4) 35.7 See_Comment [ Automated message] The system [employer] generated this result transmitted ref erence range: 22.5 - 3 6.0 seconds. The re ference range was not u sed to interpret this result as normal/abnor mal. Lab Interpretation (test Normal code = 52439-2) [facility] HospitalaPTT2022-03-25 04:21:04 Test Item Value Reference Range Interpretation Comments PTT (test code = 10528-4) 35.7 See_Comment [ Automated message] The system [employer] generated this result transmitted ref erence range: 22.5 - 3 6.0 seconds. The re ference range was not u sed to interpret this result as normal/abnor mal. Lab Interpretation (test Normal code = 04687-3) [facility] HospitalAPTT2022-03-25 04:21:04 Test Item Value Reference Range Interpretation Comments PARTIAL THROMBOPLASTIN TIME 35.7 seconds 22.5-36.0 (BEAKER) (test code = 760) Prothrombin time/[id number] 04:20:24 Test Item Value Reference Interpretation Comments Range Protime (test code = 14.0 See_Comment [Autom ated 5902-2) message] The system which generated this result transmitted reference range : 11.9 - 14.2 seconds. The reference range was not used to interpret this result as normal/abnormal . INR (test code = 1.10 See_Comment [Automated 0031-6) message] The system which generated this result [...] valves. Lab Interpretation Normal (test code = 51514-0) [facility] HospitalProthrombin time/[id number] 04:20:24 Test Item Value Reference Interpretation Comments [...] valves. Lab Interpretation Normal (test code = 66008-7) [facility] HospitalPROTHROMBIN TIME/[id number] 04:20:24 Test Item Value Reference Range Interpretation Comments PROTIME (BEAKER) 14.0 seconds 11.9-14.2 (test code = 759) INR (BEAKER) (test 1.10 See_Comment [Automat ed message] code = 370) The system [employer] generated this result transmitted ref erence range: [...] 4.0 See_Comment [A utomated message] The system [employer] generated this result transmitted ref erence range: 3.5 - 10 .5 K/L. The refe rence range was not u sed to interpret this result as normal/abnor mal. RBC (test code = 789-8) 2.54 See_Comment L [Au tomated message] The system [employer] generated this result transmitted ref erence range: 3.93 - 5 .22 M/L. The refe rence range was not u sed to interpret this result as normal/abnor mal. MCHC (test code = 786-4) 31.2 See_Comment L [A utomated message] The system [employer] generated this result transmitted ref erence range: [...] L [Aut omated message] 777-3) The system [employer] generated this result transmitted ref erence range: 150 - 45 0 K/CU MM. The referen ce range was not u sed to interpret this result as normal/abnor mal. MPV (test code = 10.7 fL 9.4-12.3 23653-2) nRBC (test code = 413) 0 See_Comment [Aut omated message] The system [employer] generated this result transmitted ref erence range: 0 - 0 /1 00 WBC. The refere nce range was not u sed to interpret this result as normal/abnor mal. Lab Interpretation (test Abnormal code = 38088-1) [facility] (Hemogram only)2021-06-26 04:04:58 Test Item Value Reference Range Interpretation Comments WBC (test code = 6690-2) 4.0 See_Comment [A utomated message] The system [employer] generated this result transmitted ref erence range: 3.5 - 10 .5 K/L. The refe rence range was not u sed to interpret this result as normal/abnor mal. RBC (test code = 789-8) 2.54 See_Comment L [Au tomated message] The system [employer] generated this result transmitted ref erence range: 3.93 - 5 .22 M/L. The refe rence range was not u sed to interpret this result as normal/abnor mal. MCHC (test code = 786-4) 31.2 See_Comment L [A utomated message] The system [employer] generated this result transmitted ref erence range: [...] L [Aut omated message] 777-3) The system [employer] generated this result transmitted ref erence range: 150 - 45 0 K/CU MM. The referen ce range was not u sed to interpret this result as normal/abnor mal. MPV (test code = 10.7 fL 9.4-12.3 58642-2) nRBC (test code = 413) 0 See_Comment [Aut omated message] The system [employer] generated this result transmitted ref erence range: 0 - 0 /1 00 WBC. The refere nce range was not u sed to interpret this result as normal/abnor mal. Lab Interpretation (test Abnormal code = 90620-3) [facility] (HEMOGRAM ONLY)2021-06-26 04:04:58 Test Item Value [...] WBC 0-0 (test code = 413) POC-Glucose [id number] 21:57:30 Test Item Value Reference Range Interpretation Comments POC-Glucose Meter (test 204 mg/dL 70-110 H : TE STED AT [facility] code = 1538) [address] [place], [address]: Control Technician/Techni kelle ID = [id number] for Estela Cancinoradha Lab Interpretation (test Abnormal code = 73131-1) [facility] HospitalPOCT-GLUCOSE [id number] 21:57:30 Test Item Value Reference Range Interpretation Comments POC-GLUCOSE METER 204 mg/dL 70-110 H : TESTED A T [facility] 6720 (BEAKER) (test code = YUDY [place] [facility], 1538) [address]: Control Technician/Techni kelle ID = [id number] for Ad ams, Kimetra Type and screen, automated ([facility])2021-06-25 19:44:00 Test Item Value Reference Range Interpretation Comments ABO/RH AUTOMATED (BEAKER) (test O POSITIVE code = 2260) Ab Scrn (test code = 890-4) NEGATIVE [facility] HospitalType and screen, automated ([facility])2021-06-25 19:44:00 Test Item Value Reference Range Interpretation Comments ABO/RH AUTOMATED (BEAKER) (test O POSITIVE code = 2260) Ab Scrn (test code = 890-4) NEGATIVE [facility] HospitalType and screen, automated ([facility])2021-06-25 19:44:00 Test Item Value Reference Range Interpretation Comments ABO/RH AUTOMATED (BEAKER) (test O POSITIVE code = 2260) Ab Scrn (test code = 890-4) NEGATIVE [facility] HospitalType and screen, automated ([facility])2021-06-25 19:44:00 Test Item Value Reference Range Interpretation Comments ABO/RH AUTOMATED (BEAKER) (test O POSITIVE code = 2260) Ab Scrn (test code = 890-4) NEGATIVE [facility] HospitalType and screen, automated ([facility])2021-06-25 19:44:00 Test Item Value Reference Range Interpretation Comments ABO/RH AUTOMATED (BEAKER) (test O POSITIVE code = 2260) Ab Scrn (test code = 890-4) NEGATIVE [facility] HospitalType [facility] screen, automated ([facility])2021-06-25 19:44:00 Test Item Value Reference Range Interpretation Comments ABO/RH AUTOMATED (BEAKER) (test O POSITIVE code = 2260) Ab Scrn (test code = 890-4) NEGATIVE [facility] HospitalType and screen, automated ([facility])2021-06-25 19:44:00 Test Item Value Reference Range Interpretation Comments ABO/RH AUTOMATED (BEAKER) (test O POSITIVE code = 2260) Ab Scrn (test code = 890-4) NEGATIVE [facility] HospitalType and screen, automated ([facility])2021-06-25 19:44:00 Test Item Value Reference Range Interpretation Comments ABO/RH AUTOMATED (BEAKER) (test O POSITIVE code = 2260) Ab Scrn (test code = 890-4) NEGATIVE [facility] HospitalType and screen, automated ([facility])2021-06-25 19:44:00 Test Item Value Reference Range Interpretation Comments ABO/RH AUTOMATED (BEAKER) (test O POSITIVE code = 2260) Ab Scrn (test code = 890-4) NEGATIVE [facility] HospitalType and screen, automated ([facility])2021-06-25 19:44:00 Test Item Value Reference Range Interpretation Comments ABO/RH AUTOMATED (BEAKER) (test O POSITIVE code = 2260) Ab Scrn (test code = 890-4) NEGATIVE [facility] HospitalType and screen, automated ([facility])2021-06-25 19:44:00 Test Item Value Reference Range Interpretation Comments ABO/RH AUTOMATED (BEAKER) (test O POSITIVE code = 2260) Ab Scrn (test code = 890-4) NEGATIVE [facility] HospitalType and screen, automated ([facility])2021-06-25 19:44:00 Test Item Value Reference Range Interpretation Comments ABO/RH AUTOMATED (BEAKER) (test O POSITIVE code = 2260) Ab Scrn (test code = 890-4) NEGATIVE [facility] HospitalType and screen, automated ([facility])2021-06-25 19:44:00 Test Item Value Reference Range Interpretation Comments ABO/RH AUTOMATED (BEAKER) (test O POSITIVE code = 2260) Ab Scrn (test code = 890-4) NEGATIVE [facility] HospitalType and screen, automated ([facility])2021-06-25 19:44:00 Test Item Value Reference Range Interpretation Comments ABO/RH AUTOMATED (BEAKER) (test O POSITIVE code = 2260) Ab Scrn (test code = 890-4) NEGATIVE [facility] HospitalType and screen, automated ([facility])2021-06-25 19:44:00 Test Item Value Reference Range Interpretation Comments ABO/RH AUTOMATED (BEAKER) (test O POSITIVE code = 2260) Ab Scrn (test code = 890-4) NEGATIVE [facility] HospitalType and screen, automated ([facility])2021-06-25 19:44:00 Test Item Value Reference Range Interpretation Comments ABO/RH AUTOMATED (BEAKER) (test O POSITIVE code = 2260) Ab Scrn (test code = 890-4) NEGATIVE [facility] HospitalType and screen, automated ([facility])2021-06-25 19:44:00 Test Item Value Reference Range Interpretation Comments ABO/RH AUTOMATED (BEAKER) (test O POSITIVE code = 2260) Ab Scrn (test code = 890-4) NEGATIVE [facility] HospitalType and screen, automated ([facility])2021-06-25 19:44:00 Test Item Value Reference Range Interpretation Comments ABO/RH AUTOMATED (BEAKER) (test O POSITIVE code = 2260) Ab Scrn (test code = 890-4) NEGATIVE [facility] HospitalType and screen, automated ([facility])2021-06-25 19:44:00 Test Item Value Reference Range Interpretation Comments ABO/RH AUTOMATED (BEAKER) (test O POSITIVE code = 2260) Ab Scrn (test code = 890-4) NEGATIVE [facility] HospitalPOCT-GLUCOSE [id number] 11:31:12 Test Item Value Reference Range Interpretation Comments POC-GLUCOSE METER 130 mg/dL 70-110 H : TESTED A T [facility] [address] (BEAKER) (test code = [place], 1538) [address]: Control Technician/Techni kelle ID = [id number] for PH EN-[place] (V), INES RAD, CHEST, 1 VIEW, NON [id number] 09:04:00Reason for exam:->post-opShould this be performed at the bedside?->Yes [facility] : 1955 Sex: FFINAL REPORT Chest AP portable Comparison exam: 06/24/2021 History provided: Postopevaluation Heart size magnified by projection. Lungs grossly free of acute disease and vascularity normal. Signed: Wero Alvarez Verified Date/Time: 06/25/2021 09:04:07 Reading Location: [facility] Diagnostic Imaging Reading Room - [facility] 1.310.12 BASIC METABOLIC [id number] 03:58:40 Test Item Value Reference Range Interpretation [...] S NOT APPLICABLE FOR DIALYSIS PATIEN TS. Control Technician ID - UMREJA9809-99-58 03:40:57 Test Item Value Reference Range Interpretation Comments PARTIAL THROMBOPLASTIN TIME 46.7 seconds 22.5-36.0 H (BEAKER) (test code = 760) PROTHROMBIN TIME/[id number] 03:39:54 Test Item Value Reference Range Interpretation Comments PROTIME (BEAKER) 13.6 seconds 11.9-14.2 (test code = 759) INR (BEAKER) (test 1.05 See_Comment [Automat ed message] code = 370) The system [employer] generated this result transmitted ref erence range: <=5.90. The reference range was not used to int erpret this result as normal/abnormal . RECOMMENDED COUMADIN/WARFARIN INR THERAPY RANGESSTANDARD DOSE: 2.0 - 3.0 Includes: PROPHYLAXIS for venous thrombosis, systemic embolization; TREATMENT for venous thrombosis and/or pulmonary embolus.HIGH RISK: Target INR is 2.5-3.5 for patients with mechanical heart valves.[id number] 03:34:10 Test Item Value Reference Range Interpretation Comments PHOSPHORUS (BEAKER) (test code = 3.8 mg/dL 2.3-4.7 604) Control Technician ID - SZXVQLZTZUQ5019-26-45 03:34:09 Test Item Value Reference Range Interpretation Comments MAGNESIUM (BEAKER) (test code = 2.3 mg/dL 1.6-2.6 627) Control Technician ID - [facility] (HEMOGRAM ONLY)2021-06-25 03:11:29 Test [...] WBC 0-0 (test code = 413) POCT-GLUCOSE [id number] 22:14:10 Test Item Value Reference Range Interpretation Comments POC-GLUCOSE METER 185 mg/dL 70-110 H : TESTED A T [facility] [address] (BEAKER) (test code = [place], 1538) [address]: Control Technician/Techni kelle ID = [id number] for En nisSheryl RAD, ABDOMEN/KUB, 1 VIEW [id number] 19:49:00Reason for exam:->concern for ileusShould this be performed at the bedside?->Yes [facility] 1955 Sex: FFINAL REPORT Abdomen dated 06/24/2021 Comment:Abdomen was examined in the supine and erect position. There is paucity of air in the small and large bowel. No mass, pathological calcification, or free air is present. Impression: Nonspecific gas pattern. Signed: Andrew Palmer MDReport Verified Date/Time: 06/24/2021 19:49:12 CT, CTA CORONARY, W/ YOEL [id number] 16:36:00 [facility] : 1955 Sex: FAddendum BeginsREPORT STATUS:A Impression: Mildly nodular appearance of the liver margins. Please correlate with underlying liver function tests to exclude chronic liver disease. No abnormally enhancing lesions in the liver parenchyma.Low-density lesion in the right lobe of the thyroid gland. Recommend dedicated thyroid ultrasound for further evaluation outpatient setting.Other findings as mentioned in the sales service assistant report.No additional significant nonvascular findings identified. Signed: Lise Andrade MDReport Verified Date/Time: 06/24/2021 16:36:13 Reading Location: [address] Radiology Reading RoomAddendum EndsFINAL REPORT CT [...] (< 1mm) were obtained. Please refer to [facility] regarding the medication administered for [...] erformed. Coronary calcification was analyzed using the [employer] system software. These are the results of [...] to the RCA is identified. Regarding the [place] coronary arteries, diffuse calcification identified the proximal LCx making accurate assessment limited. 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 NON-VASCULAR: A 1.2 cm hypodensity is identified in the right thyroid lobe at image 7. An addendum will be dictated thereafter by Cold Roll Inspector Radiologist if dedicated thyroid ultrasound scan [...] An addendum will be dictated by the Cold Roll Inspector Radiologist regarding the nonvascular findings. THE REPORT WILL ONLY BE CONSIDERED COMPLETE AFTER THE ADDENDUM HAS BEEN DICTATED. Signed: Dung Fletchereport Verified Date/Time: 06/23/2021 08:29:48 POCT-GLUCOSE [id number] 16:19:22 Test Item Value Reference Range Interpretation Comments POC-GLUCOSE METER 108 mg/dL 70-110 : TESTED A T [facility] 6720 ([facility]) (test code = [place], 1538) [address]: Control Technician/Techni kelle ID = [id number] for Aditya brewer (contract), [employer] [id number] 15:29:08 Test Item Value Reference Range Interpretation Comments Case Report (test code Surgical Pathology = 104) Report Case: [id number] Authorizing Provider: Logan Russo MD Collected: 06/18/2021 11:41 AM Ordering Location: [facility] Received: 06/19/2021 03:44 PM PERIOPERATIVE SERVICES Pathologist: Tom Paige MD Specimen: Mass, MITRAL VALVE MASS- for MICROBIOLOGY then pls send to Pathology DIAGNOSIS (test code = k2kccHYrRAAhr9ouWSBcrDT 3220) uZzEwMzNcZnRuYmpcdWMxIH tccnRmMVxlcGljOTYwMVxhb wQyYQZtxYDkJ9WboqccBTai EJ9yXY1ptVkpgWGttTQkOBT xTaVro0rle672wXQxj7ulZT LAlopqaMw5dVzkT79zj1J8N zweX59xcMVgVLS4BQZsFTLp qYDhUMYoDHB5OFXwkSFyS3m sAJSjYP6ellmgOTrfASreFS DgsOI3OYOlxJWxG6GkNCOmJ DpmBROvycc7RnVvOw2qkNCl eTcyMFxwYXJkXHBsYWluXGZ fElSxFK3cHDHNUmPyKV5AAW JBTCBWQUxWRSwgREVCUklER U0WTjTcSR4SCCAEUHEJQsum cGFyIEZJQlJJTiwgQUNVVEU pQR7HICVUVNERL1LIIGOUI2 DDM5SKHRFUVuCpZ2SQV2jYG FVZKDjYNs4ugPSqGLHLRXZS QIqoN0CFLT0CCGTIQfGBWvE JL6QUP3BOHL9JW9SNCYGSDt WDWZ3DIZ1XTUUFBAPRSnGEW BYDTlXUU9kQN5diDRajKBOp D46TWmHLYXBTX28uO6yYBHW BHEFMA1SAF6fPX9cGUPsoS2 XLVAxVUkMJBtYMORKSRD8CB dWYQP6oEGTupm53DLJ6BvLm g4O3OCX9IESqNHLzi6ezJQH mbGFuZzEwMzNcZnRuYmpcdW YmJPThWzEfe2srf906aRQix 4yaMPIoEnR6zEBuUPXrdJIv Y831BSCfJVamp4wcy9HlURI nnBXse7W5NAXIbxxbnHk9eA ybC02qe5S3GionB5dwMQTyA AJvM3TcZY9cOYFlQss1LKL4 QAC9XTRsKAMnV5WdRQ9jLSU jrXRpCQp9b2kmpEeuMGVjJD J6r6zcOSlvpxHlQX8qnv6eh Dc2e5mpgzVbOKXeQHYtxARO UDBjK1LsoQrxEn4foEq6vSl qMimpEQR8Jin0WU6hsn44zl c1yOgrEKUicubkZlR1FMcsU WPdntviAEf3VGcjTFWzaXF9 SFQodBUcS6BfDNCgLH3xanl 8FQA1LFkhZHPwPeK1ICWulX KrWOXtdIpnIBaxn363UAB7M oQuZC4xZ0Ddz6Q3gY9pmVHp QRCmxUOpTzVkCJGjmq7urCF nDRqwu4JgNLG2iyM1wCYwgY FbLNCbZjQ6CMzrOX6zgl41S ECdUTV8bi0ujDRkjKwkgpMh kWKrOTdhW1BdMMFlc736KKV yV5MrAKJvf5B6rcZkLxFcAY IdmKT1ixX5VIMiEB6wamknv 1nfNDkvOGswPNMciuV5jpH9 UCPbcYUnE5PxfT5dECFxTU9 cvubml7ejFGK1JApgWUNjDR A4BdGxDHTjc4Jvcwb7VeGec 6RtgIPsMEesA43lv894YCSx vkZoL0vtoFWjjubxaONcakj oVJjldxC6IFBrKDeabswjXA LkUCnaL7ovZdSxTTHwhMdjQ Xcrh1UpIMBfOTUzNbEfnBEx UJXhNhe0OPAzqSBhLWHkCkK fS0bmvbkeBoYHIQYhy9ddG9 zyjGQFrNGhV2OcVVoyroJcF SksPZgvUyOgEXPlVK16MBA3 PCJmwx36 CPT Code(s) (test code s6uquOFfQGMqcYS0IqYsBRG = 3357) qv6cgo4VvyHKkjRGyUYptvN WhcyQoex73jDW8fY40DR9aP QQgOqL7TSKbscO2Mwo5BKGr TSKfuCRnO231u6edp2fhpmU yjHK4fRmoTGSiiymtAqS3ZJ mrMZMfmovjVUx0LUdjHZMwy EW0HGWoeZDoF2ArCRKkMW3g paj1IJB3XJdgZXPuOsV8VKB arBTgLGQpiRxlRHnkx665ZR C1JyStGAOmwgLpuXfpwB8eM rSiQRW2VAMwXAbaFWqhIMPY N2ygPNT2 CLINICAL HISTORY (test c0fskMAmYDEwyUO0JvByHIV code = 3356) kj1ubu0PckRUhyWToHOidyT HxdoDnpu33bQO5jV43FW6nH LYuHaN6OKWtdyT8Gbk6UVIx GBVkdJXiL582e9pwf2besyC nxRV1aPcgPUDxuywyIqY7KG fxXEFypfgcKDj1AIcvKSBpc XO2KGVkzJQwQ6CxBPSxUS6x avi4UFU5MKsaRFHyToK2GFE jgVZkUNNfzXlmGJafz299WS O8KzEiJJWylxJxeVendW0tU yNwYWOZayCbA3AkPTq0qKZy cGFyfQ== SPECIMEN SOURCE (test l3tkcLNzLUPogLW4VbCiCUM code = 3377) an3wwl9AzrLBvvFSbFJkghE PggdIslq97jIS7lD06GA0lH XGwRyR2WSZusfW8Dvo5AKFv JJSjiOTbK320y2xdo6cvmuC kjXF0zQtuGUExoawaDdX3RW toETQrdlqkWTt6BRbyXJVkh HB6NQPhmHVuM3HgYDOkBD4j kke5HCZ0WVdxOJItCxN0ILA uiZHxWTMjeSpaPYwzn873OG T1CzYlUHDljgSqhDxzyG8lH nMyMCBNaXRyYWwgdmFsdmVc cGFyfQ== GROSS DESCRIPTION z6imuSUaIVNphHQkYrQeDII (test code = 3366) aWVWfv1vwYFPgfTRjTzHoSw NcZnRuYmpcdWMxXGRlZmYwe 2rqt916zFPxc9dgEKOtLtS3 nTVhAQCvqHOyM293GISvCYc fk9ccd3FgQSKzmVHgh1F2OJ RVagacwGt9vTfqB09bv5V7X wpyU7riZVCgHUDpH2NpEB7c KKTeQlw0BWM0TDM0UXTqJXN mY7HqOE9jKCUodLDrNLq3b3 dmrUjwXQLgZVU9n0woYYtpi wXxXN9nqy2mvEy2d2dulhIc MSJfKYYllIRHOZSxZ9DijQe yVn6avCn7nXjzWakbFAN4Od v0ZG8pui94nyy0kSlkDCIla bjxYoR6UVyuGZWnyszuLYd7 MFxtYXJnbDcyMFxtYXJncjc yMFxtYXJndDcyMFxtYXJnYj mwKUtgQLPwMAW3KGbmn215P IB1KLoga2lax2uztBYmKvz5 WVIwBwOhJmmwJKbpx2Qjn9z sIPMyvv6uGTA9qNLqpAinx9 J3rQYzCIRovHRibxXxRMQwH xN2SErvAW0mzl28UNOvWMN8 do5bnNGglCmwpwAitFMmVHr kW1NlMOIns357QOPuP6SkUA Zux7Z7utWbCnAdQRJnhZR4w wG9QOAzTGo7iVEhuiR3awMb sOYmA5cpgY45PnCuoVZwG5D dhO74PrXzzYJpV5EqgW17Ag BbvLOnO0QezD78XwZykBHjZ OCsmNDtEe0joNOlmBQdd6Jg gFLsYZdcQ03yg158LXUlbxW fR9wulBXknqbfrPYomtmgUH wevfP9AZQtLJNrEVhuMUDkE GZzMjBcbGFuZzEwMzNcaGlj qCyeKNklTxIxIVDdWBgmJ9g cZjBcZnMyMCBBLiAgUmVjZW z1YXXtbI1kUj6oxAHgsT0or LJtCYgbBTI8aFIcKWAsZRLl DSDzQG96M9AbdH7nd0RcWNY xi25wJA1hRMQdaGCxRPmmff FsdmUgbWFzcyIgaXMgYSAxL eCoR24tbB0fuBGyG4VaZFT6 IDAuMyBjbSBpbiBkaWFtZXR fboL2PP1ctLllbxN1pVGfbY XdWXuibCXmXRjcOCU9Br3cz EMbFLJmcdO0g0QfJAjfAIJv b9QjiMVgJVRoZkimXLKilQB gZQCoxhCzxWothL0zAoGmCx MyNFxwbGFpblxmMVxmczIwX AbfchfsSUCnBMlwL5fhWfQm SHGzaXqaEDifx4FkZZFjJUO gOtSoKNTaFJEhg8jnRH08GV xwbGFpblxmMFxmczIwXGxhb nwwOFFnJXtkG0zwUcYnDRBa nYbrQVugo2KtQYFqDLVvMtD ccGFyfQ== MICROSCOPIC k7rpeWZvOIXlfHS7HtXdYVQ DESCRIPTION (test code me6tyn2FvfKBptXJhCNkltV = 3371) KudmWyac64gOG3oK40DH1eQ GKkXpM4ZLRkqnC4Awp4ARPk KQVzyJVcD213w2lmo5haehH paTE7lFolOQVslsxpPeP7BU okAVOzjhhxPCw9KFpaPVCvo FG3YMAdrSFfL0WaFCKyCC3o rlt6YAL0SWdwSFBeIfJ6MAB ifHNtRHDarYgnNZped709DN X6KlMvYUZopiWlaFolsH9lO xCjJRZVQDRuz3WlCJFvDNMh cn0= SPECIAL STUDIES (test p4knyQIxSSMkiYO2WeJpPBM code = 3376) hp0flh6KpqKGpzZQrIIbsdL TitbKrnh70jTS7mZ85TH9aE NSrKmB4RVAnllU7Wsv4VDPi KSHfjCVmY111QRKhIJEnmOm xaet9aI80YODahV8sdDKiPD xycoLlQYzqxrIjbjIhLdg7E CV2dIloKYFkyxpxKoA8MAap DOItdgvdWJu5KYhyKZXejIC 8HYEvcJQzI3DeZQAmMX6jtu p2LNZ7WArcVBCfQoV1WLJmi SOqAXOvfBdfBVima888SJC7 BgArPGBkriXexMgawG7uRhL cZnMyMlxjZjEgVGhlIGludG BeeHJybQR6iN6lKK9hGAEpj GOrG6UpSVPhivOcqEUbYNR3 gLFywMKgQV3xYUchsOZba5p qc2MlD6vifKascXX5KU4uQG PsXSUdOQvqj1PazV0mBpqrP KNoH6VtKMVBH1IJEEAyPUFD Mc1NKhJZNbFxUeIMJc4hHBz NUywgQUZCXHBhclxwYXJkXG DpLYLEo301mx3hEKKkeLXko sHApVDsjH2uWWypIYklTGna iQWjAQrjc0xzHJLab7v3rSO iFSNhpgOua4ciDCjjjlKrUE HguARjhPUcVSPyh83pRYlwa HflmIzjDEWie5UqiPzsp5Gm NqPiWMaiu8YmY44nvOMzrFI dnKlfLVVwruYjURWxv82wq1 jqACQgWyY1gHLqxAN8bADen MZou6IydIcmVBPcl0nzOPCt sb3ymrhrmUAcs2EvdJ1twqf uZEckcOOegyBkNSJzn5a4bD LdMKFiACBrSXgyaLz1VUHvx 077if5bgmY5gBUzCSX2PDbq YWJsZSBhcmUgZXZhbHVhdGV lRJRjxiOcWXGvroAYpG26xr 8psOF4q4ViTN6yi9YwnDL9E WNobmljYWwgdGVzdGluZyB3 DUVjfHNfUu3epMCzHYL7ATB wjTcjfvLYjT1nOVXxTDy3IW WuMgBvWorvzkBMCNBjD2JpV HSanqEsqjwhZEJ0nM0mp3y4 KEruQo0lBOThkfctf5shwsY zsFDnh0MjUZQvdoKen2VdUL WwzcVvzVEcTEGrqgBydh9by xPiPBFaASDjY2FezobxoPnd sqY6BLOiQADioVCdyCayHNG zMMn9PGnnqkQta0MuCoRgvt OwnNDqarZgMA6bYUHtsVZzs bLnCRK2BQZkDKMTPmRfTCLh l2FhHC8zJIZndFclBBMzyE7 od8EcIXVbe99yIYBmCSJVTW EgaGFzIGRldGVybWluZWQgd QrsbJHsnTEdWHQkCKIqIL1w ZBNvmyPwcPOgm7UvvBOzgkN sc9GspoAkRMSbDRG5TlNMbB XfyHNarEHrtcJ3f7FhWOScm qQtsMuybDBimORmdBPfx2Cq ol0wLUNbb5wxsBopHC6nlOB iZSByZWdhcmRlZCBhcyBpbn Whf4RiK6O9zK8bBYbhp1VfL l6bEPVsq7LydkEeFmJRdTge EQdmVk7xCAIbyogfoOJpX5H ydGlmaWVkIHVuZGVyIHRoZS MPuXnfmVHxrGXUGAFkxaM0v 8D1CRcsfXRewcYrVY42XJNx IT4pqBPgfUAob2RaSQt2XHK aA7yUMV54JCifXWFpcLElpU mrxIRwQTYlPLInqeEgov2hd ZizpRRkb97nhYY5vBI7EQYe qR0dB9PiTEtaBs8dAIJqkck ibFJilSaoJo2tqAMowQ== Gross assessment was [facility] performed at ([facility], code = 2777) Department of Pathology, [address] [place], [place] [id number], Technical component [facility] was performed at ([facility], code = 2778) Department of Pathology, [address] [place] [id number], Professional component [facility] was performed at ([facility], code = 2779) Department of Pathology, [address] [place] [address], [facility] [id number] 15:29:08 Test Item Value Reference Range Interpretation Comments Case Report (test code Surgical Pathology = 104) Report Case: [id number] Authorizing Provider: Logan Russo MD Collected: 06/18/2021 11:41 AM Ordering Location: [facility] Received: 06/19/2021 03:44 PM PERIOPERATIVE SERVICES Pathologist: Tom Paige MD Specimen: Mass, MITRAL VALVE MASS- for MICROBIOLOGY then pls send to Pathology DIAGNOSIS (test code = [id number] 3220) uZzEwMzNcZnRuYmpcdWMxIH tccnRmMVxlcGljOTYwMVxhb zAeYLKriGQzE2FqljljOEls VZ1zJH4waHziaTTnoFLeJPN hKpFxq7okc269bEKrt6fiSV GNsxhpxNc4uBlgE61ja5Z7F tzeK53mwHMuHPL5DDRmHCEb uAPyIINiPOR7BFFxbVGlH3g oWNVkJX4muktbCGzeFVkwTR NloWP4CENjkDJzC3FpXAOsH WkdFJEolew9LzPzFm8utBBl eTcyMFxwYXJkXHBsYWluXGZ iJnNpNR3qGANMZjMdFQ7EZC JBTCBWQUxWRSwgREVCUklER N7WWdJgBJ4EUSZSHGNONsfg cGFyIEZJQlJJTiwgQUNVVEU dOJ6YSQMQTZKJY2PUNBTED1 SYG5TBBPUXMsNrY9SMM5oIB SKDXJeCGy7hnMEkXYYAXXRS HOteK9VTLI5YSOZZXoQIKvH IY4GHD5QAPU1JA3INBXSELm DQZH9PJY1FCTJDDYMBMaRCN BLDAgQWK3bLG0lvAIcqWZKz P47KThQMJNWAY89bS4tFGFT GHOKAN6XPD9gUM6qOOUybQ7 YRMZlWJbLNEjOAMYFHKZ0PE zPSCH9aLRSksu73VGY2GbAr m8C9ATC1UIFcVLGcs4swIFW mbGFuZzEwMzNcZnRuYmpcdW QpEMPiEvBgg5czu774cVCjb 5yhVUMkQkF2qMTqKQSngCFm I499OWLeUHhnj2pms2RwFCC cmTRgt1M4ELZBrkxcrTs6fL vbM94vg3N2EcvbT0oqAFNfW BStT4UqKF9uAJMdWdq4IHH4 BJP4VAKoLWIxH7WgVH4kWEA yhDJnUMw6c8zpeYtmGDPiMV D5g9kwJFjvdiFcJA1cok2zp Vp4u3wwgvOuWUIsXQYxgOLQ VIIcP9SadOvkLk8lqXt4wDo mFsalGKT2Jil2OM7fcy17om a2wHyzAUFjlpwxRlX4JBnnP RVweoivEFy2ABdcEXKgwQS0 IUWqbIUsY5KoEASdCV0dvgu 9ACH6HNrtIVFpTrW3ICEjzQ ByPBTwaAhhWAkkb455OYN6B iVrKH9nO4Cps7S5wN7ycPXj UCPfsRMwPmKaOMFkra2fdYS uNDwcs5JyTBG5stR5kBWwdT ReDLYnQeN0DBjrJO2edn85X PWgHHL4ar4skIOzdBugovJe eIBzRIhbA1WzXIBed413NOM iY4KwHSCdf5L5yrHoKnCkSH NkhIT0uvZ2DTFyTT0zlkapo 3qnGTacTOwzGCLufeA4sbA1 AIPmsARnU6OudE5mUFTqHO6 dfcqwx5ghNEX5OFopFOHxOV M9AxUtKXHng7Cpbrc8TsNsp 1VbsEOfSKucO71yu449EJRv qgMxZ5dxdEVbzovhkLRfzfy wCSebloM5LOEjQYawncieHM JvXVfmZ6qcEpAoOUIaoNtcC Ndlk1GtRQIhRMYcRaBysISm JUVxWzl5AOFbzJIcUDEtEkQ rQ1zyvlolAlQDUTMif1fyK3 ldsPMDnBRhF3UoGBtabzMcG CjfJFbuSvBdVNPoZV11DKN8 WYVawf97 CPT Code(s) (test code o2dvjZPoSCLqqBP7MtPoPPR = 3357) de1vfr5CiiGWxmDLaWLpgwE NtudDozs48oSS2gN49DC8rV PXsZyG0RIImuqV5Moa7PMGc HYAidQGfS072i3jpe0fpvhF paCF8aZjuTIJflmzoGeI1OP irPFPjxclbYOu0QHjcNGFkx AU2KAOjxVThJ2YoQXKjZW8h zcv0DKL7YPuyIYVqXsA5ICY xjVTtBMTgxNclMSong799KM I0KyIgXLRqztIvhDoibI8iZ lSsMJR3LGGhNErhNJwuCOHW K5djYDY8 CLINICAL HISTORY (test x4ywkWDyGZAmtRM9FxKmXRK code = 3356) pb4nbs6FtuSPmlWRmCYiyiT LnllMkva43wDC1oV69BW0qQ ESiBmI0YTJgqaI6Ihg2HLYp JAKlgKJdT212c6eyx4egrsQ pwHV4cPqsWSMtpaqoRlZ0EG xaVIGyoknoWNh2JFndUTTla DW4LYRleAMqE9EtDMMtEI8c wdm6FXM2XMyoDTBiGrV4TZR yeVRlEYTokJqbVYnjf606PG X3LsSaOIAggcBrjZlyvP9pB iQaBMHTnpWeR4XdFZm3kNTv cGFyfQ== SPECIMEN SOURCE (test k2puqKOeTGRgpLW9JlBcIFT code = 3377) oa5rpz1AzmQQjzOZhFYmvfU DhuiDafg17qQA9wG01XH2aO TFcSwP5ZPJhitN1Fzr4QNSw CXXypLCfN753t9stk9unpxC xnJF7sZblCUXgxlwgTaW8HL dmEKNoetopPSl6BZsiVOXpn WZ3ZTXmiPEmD1JeWXPbKY6d olk8VVX0XWhfVAOlWmG6UFQ xcUCvDBLufUgmZRwkc762GB F5LlItHJLdtbJsgBzsfU0dY nMyMCBNaXRyYWwgdmFsdmVc cGFyfQ== GROSS DESCRIPTION w9tneWHxQNQhoRJbWbUfECF (test code = 3366) nOMEus9seNNFhuUHvSvYeXm NcZnRuYmpcdWMxXGRlZmYwe 5btw023pCNxi7lvUQGzJnT2 eNEoLIPdiBYsG131ORAyYQd wq4osm2YeFUOfmBWia1Y6WD DLoeroaIf2fBgfY48ix6V3R uvfS0reCONmBCHlK1FwBJ1t GGLyQji0BSQ3ECK4OLYyOZO gK9ApLQ0bPGDaaAFkGLs9k3 ttoBofCETiKAT3q3ieMRmpb bOxUH9lxe0xaWw4f9ijylBs XUXjZYHqrWEYILOdN3GmrKh qGw8chVz6zJhfRiubOGA2Ko b4EK7atf24fmm5mHrrMVKgz dghBoF7OWsvQPThbjmyXDn1 MFxtYXJnbDcyMFxtYXJncjc yMFxtYXJndDcyMFxtYXJnYj deSGjeVHKfAAR3MKhwi515V LX1DWvse3zll3pnsEGuRri4 WKEoHfUcKxwoLFswg0Cuk1o jZBEinz3jCKI8vLSeyMjgw1 I6wFPfLTPgbNYbpgXmLKGwJ mI0JDzhWS7lgh08PFWkYXR4 vw9mmNPvfBqnayQptWZjETy nH0UyLAYpf409PKZxE2HdNI Pym6S2atGtUtXpVSToxQV3q aZ7XVJqTQg2vURxlcX8swMu uGYnG3cljY65JxVrhMBaR6K ugQ04GtYlsNHdV4BohU87Ii MsnQGwQ2KqaC36TsZgaNTrA LLzrJUlZq9zqAFxwBHsb6Yd cRUvHNdoI33fw885EZPnphL fO9mkuCWsjorzpIDbfansJP svomS2NWDfLVOxMDdfSPPeR GZzMjBcbGFuZzEwMzNcaGlj wOjkFQsuTpTcKFYyOEcyG5k cZjBcZnMyMCBBLiAgUmVjZW w5DQWalI6fIb6gcGKiqR0yo XWrUVkqGYW5zOMmZHCeHWOj XFKrNB18N7FzpU5ro7IwHYD xy95yYK9dTRAwcSFvWFxyuu FsdmUgbWFzcyIgaXMgYSAxL gEdX11dqR3egNWeF2EmRRC3 IDAuMyBjbSBpbiBkaWFtZXR aoeX1VE7bgMfvizM1yBRglD PhYYcjrWMkXUtdLIW0Xo6bp XYdBDVapgG5k4ZaJBptVKAc x9UxrBTxHZCwVfaaZCHvvJN zVYPjdeXduNaczO3dVvIkZj MyNFxwbGFpblxmMVxmczIwX OgxghiiPXGqWIgtO2flHiWa TYPvaHedKKrla2RnTFAmAXF sSqIpXSWtZXWws8olHN38II xwbGFpblxmMFxmczIwXGxhb rkcTWChOJabL7qjEwDzEQIl xSmyYFjpo9NjQETyMKSzNnV ccGFyfQ== MICROSCOPIC q3lskHLeJMFkdJX7NaQeBBY DESCRIPTION (test code do6sjt7WwnLZzjLTrVDznlA = 3371) DpwmWaph74fGX0cC21OT5gZ OHeDxU1PPNtuyX6Ymt1QZAe ESBteTUeL918v3ddx3nonxL qmLO6fHowVLTirtufPrH9ER ewVIOreicyPVh4MPgjFPSsx VF0OGQkjVMvO2YzJNQwMK1y pyw8QUT1MEuwUAFiLrQ9BQX hlQHoTIJccLmqXFsrr202FZ W8YjDkUJAooaCfqDymdQ1uM yNpLPLOTDTay0TeGEVzCFJu cn0= SPECIAL STUDIES (test p1vplUZkTCHffUG2PyOsOZN code = 3376) lo0rfn4BohSChuCSpFLmxwS ApodChtc73yOS0pJ12EV6zW MClMhW9AGVxksA6Ruo4QMKp AXDglWLtW533JEWbYEJxzJw uzsa2sI21YRYoeG2xrLUfYB datxLdQIlwhtLmjtPkZcu1P IG3mSgbAHFntlmoLbA9DKiw WMXgqtsfXOa5YMivEAFmiOJ 4SXBuqXNuZ2QjVKNwAS6zok x7PUV9KDzdWUBmXmH4SHKyc ONlDYYwfMqjKFdvs670PGI9 TgPfAYCgfvPyxNkfgU2kTeZ cZnMyMlxjZjEgVGhlIGludG ZwkGOmvTT1pI5qPP8fSEBcp UMgZ0AoVPTntdNpyKSgNTK1 iRXwkFIrYG0nEOuvsZMhl3i so0XgC5wdpTdgiVZ3NT7wKV UuLAFaAOzde6JteY4oMjgsF JRvP7FkJXTUW6FLDXIfMKFB Kl4XKwENCuHvFfUJHx4mINk NUywgQUZCXHBhclxwYXJkXG ZbPOPDt981hi5dQEAyfFEew oEIuKJjlT5rFIgwMRxbAXjj kFHvEJcxr7ifCTMgc4b0mES dNELnnjFug8gdWZgykxBfOR NszNNzsQTuBHMar47sMAzuz KbiuCcjPZMoc7GfbEgip6Ju UpVeWWnaj7BtX23vfSBoiUS ueHdvUFAilqJjYHJlj61qo2 zaEZVwHhN3wXXkbEN3eTIpz FIsc1GcbFsvNYEzt4mxMJYj ml5jgmwbhGAbm7PumW4gzyh wEWddaUTdjvYpIGRnt2z1nN ExXLLcLBBaYJeyfNp4YFZyw 390yy6ylnI0aECrQXN2BSbl YWJsZSBhcmUgZXZhbHVhdGV iPBFmumQmJQFxceWBqH02yf 0tsED3a3DaAM4jf7UdqDY6X WNobmljYWwgdGVzdGluZyB3 DKVznDMmXz3ibNZiLEQ9NZZ tgPklqvLImS7gVPSkGMf8CL JfXyPxQmhkpjEGYLZfV8MrI HHemhEgcvafEDP4zP6pb7w1 LKvhLx6vGFOcjktan0qjsjM rnOYbg9BxJQEylxPzn0MaSE BxlpTnoSOdMEGwhgYzto0ke bPqWQOrIUUcP5LofpbysKmh abV0GSHpJTHsiGNmwPuxSZB hFIw7YRbfohGdb1RlApQkvf CtjBZgipTbXO5kZNTgrGLbw tUxGUU4NUBhMYIAFfKgELYn n5RkRI2nOTMlkWleKQYlzS1 jh4UcWBFvj25oJQYgEDGJMF EgaGFzIGRldGVybWluZWQgd WhjxYSczTItZSHjOVSjUQ1w TCBfdyIhvFRfr0NokTMrhxG zr6BnukQoXTXxYYT9HkBNrG EetWUwsLTewfC7a2IuTPBih zFdiAyhoRVjwLEfnDHkr8Hv jq5iOZSls0pyjSegUW9alYN iZSByZWdhcmRlZCBhcyBpbn Ukd3YoI0E9dE9cZCsas6XaL s6iZVZzq2RrwbEfNdURxOmo DBpvPi6eDGLepiwkdVCyM3N ydGlmaWVkIHVuZGVyIHRoZS KAhCradKEpyRHTWRPwmtV9y 6N0EZdstZKgqiOeGK21TADs YZ2dfNQtcTUwq8OxQZw3OCW yQ1yXFV00PJzsVSZtgNBzsU itlSIkJGFvTDTydhQufr4nh GqcvQBiz17jnED4lED4BVTk mV5fP7GpICohBl6iSWWigmk sePUonXcnTg3afTWitQ== Gross assessment was [facility] performed at ([facility], code = 2777) Department of Pathology, [address] [place] [address], Technical component [facility] was performed at ([facility], code = 2778) Department of Pathology, [address] [place] [address], Professional component [facility] was performed at ([facility], code = 2779) Department of Pathology, [address] [place] [address], [facility] [id number] 15:29:08 Test Item Value Reference Range Interpretation Comments Case Report (test code Surgical Pathology = 104) Report Case: [id number] Authorizing Provider: Logan Russo MD Collected: 06/18/2021 11:41 AM Ordering Location: [facility] Received: 06/19/2021 03:44 PM PERIOPERATIVE SERVICES Pathologist: Tom Paige MD Specimen: Mass, MITRAL VALVE MASS- for MICROBIOLOGY then pls send to Pathology DIAGNOSIS (test code = [id number] 3220) uZzEwMzNcZnRuYmpcdWMxIH tccnRmMVxlcGljOTYwMVxhb xGoWCNpzBDnJ8WoswmyHYdo NN8xAM8ahOishLLaeNMmXSZ qQtYrf8glz410fQGnb3hpGX BIaqrogQt2fLpnT02fd0V7Y ocyP59ejAErNCY3PENaTDSj sUYnWFDiLTJ8TNYqtJJxU3b zPYNcDU5zzdaaKWipIXgwJQ DabQI2XUZicQMpA9HrTFLdU CvyPDOovtt4RuRhHm1fkOBa eTcyMFxwYXJkXHBsYWluXGZ dJdSaOI9jRXBASySrPF4FHE JBTCBWQUxWRSwgREVCUklER X4ERzRhCD0BRRXYKLMUWjyb cGFyIEZJQlJJTiwgQUNVVEU cOY9XZIRNDIIQH3MEESNUS3 KPJ5XVUCNAUmOcN6PMX5qEY QAMFDyUXg0qnHVbZSBWCIZI RXusT4TIIG4COPQQLeVTFtT EC8WMV2FDZI1JZ9RDJVTKFa JPVD9SOD9WPIFRRDAYLlRCP PLBAkAWG1xRZ8miESgpKIQk S62GUdACTAXRH21oH9xFTVY QBHDYL2UMV6mQI1hZBIimI7 BJKOaSYzASSeWSXMIQQL3NI aKDHA9bRICoqq94QQD3XjVv d6Q0PNF1VFJjTPVks9tqRPR mbGFuZzEwMzNcZnRuYmpcdW MnEJJoGdNeq7mer890yLEoj 6lqGTHnAsO3iLSoSZUhgBKd F568PFMvPYbvt9rqc3LnBRR cvNIwn1Y3NREYbgfjzQl5fJ rdR54xw2H3WyiyR1qeUKDuV OMbW8KyQQ3kVYCrJcf7DAR9 DLC1DORmYVAqR5LqZI3oHUW csLUkYFm9l1ryfPryOEAgHE O9w3hjRSzphwRzKG0jke2ck Hy8x3bsqkNoDDVhVMJsuTWG URFwE7VvbVckWh5aeZc4mCj eIuoaYJG7Tfi5DU1vcr53rg d0wUenLVDzorxuCbZ8UDswQ GZfxrskCOn8UMgeONAohWO3 VMJssABiG8VvEOOjAC5vqge 2SWS2TBjdZFFzAoJ5KHNdjG FyRAJtcQlaEYcki625TPJ7B xKbBA5cN8Rmd4V3sO7idQTf ETQdwDEcRnBgIXEkau4krLA xXCvkz5MdQZS0ljE9gPIneQ YaDSQvRtT6MFbbIU3hzt25U YUjZOL4qe1kdPKueXzwjgXk hTOoTHrmW3HfZHEtm643APJ aP0UtJPHwp5K2ogIgDdCvWW NzzYV2elM0FKSpSN2cvjlzf 8ctPRprIHhoHPBqljL6tyQ9 DTSgdOSsI1RypE8lXTIdMZ6 erzdfh1geMGT9KDnpCSSbOF I7JwImDIElk8Xixwi3FtGbg 1EauJTfFRulW55sf132NHVx tpLvG5ijjNTksuwifVAjbgj eJWhlejP0AEEfLOmqdfckCH JjHHwsI0ioLbEpDRXlcDtjS Rfjf5GyCEKlGMXzBpFetRQp PLTcElf0YNCyfAAiLSIcMaB oE8dkbdebFaAIZIQuy5pjK6 npcQLLoWAeA4QmLLhnzyZxF HbbZRuwLqCqSVDpEF92ZDN5 OSHfhp51 CPT Code(s) (test code z3lclBRwGTSatLI1RnWdQUD = 335) qb3rlj0HdiSZkvFPqRZjzaD BmvnTvig22tAQ8tQ05VS0rU VDfZyH0MPWbwaA2Zks3TKHj OGZiaSPoD689a1sqn9mqxzV qaGL5uTkdGSGiwsfsNjN4EB euKRNxjfjeXKa7RRcdESPcw AQ9TXYseERtV9ZlNXCkXW8u xcr8TQW3CVhdSQOhLgA3OLD glCBrHMTsoJqyWQidp943HN D5NyPnKEHqjwMaiSyxpF6kP qWzMGR4OORyBHbzNOwrHUAY C3buNJX0 CLINICAL HISTORY (test e8ypuBOqHDVtiXI6RpYpLYN code = 3356) eu9qzr0UfkMIlnSNnNWthrR UucxPgrr81bED5tV26XV6tS ZUiXyC9AOGldpH1Mra7EOIt EZXhmWTfN385v3ayo8hczgR yrYM6jRaaATPwbdzoJpN7WE glTXMoqxvsRBa6WFhnHUQap ZR2CCYbkYTuW2YtFZDnNX5b dil6HYM7ISriJITtAvN0GJP jdVUxSLMqjWedBYxac696KP D6ZpHdDIVqlwTufAlvoM2nZ lZmEAKAtmEnN2NwBEs4iRKz cGFyfQ== SPECIMEN SOURCE (test h9oyyRBhCLVqrUH5QjQeSKT code = 3377) hi0rkk3EvzJPpaWHeASfufD XbfwCmuh59lRD4jO50WF3dL IKtAmB1LONzuqQ2Nhw6QAHm XSZvrORlB174j1sws0kbjuE rcFK9nLavPKKysgykGgW7QW oqNLZyjbevPIa3KUtjRQIbs MG0URZqeBMsN1UzXOHfDV4c wfh7RXI5ROrpXUKpQnB8ZLJ tpAMhIBUzsLeuGItnx145CW J9GdTmCTGvyvDovUwdjU3uW nMyMCBNaXRyYWwgdmFsdmVc cGFyfQ== GROSS DESCRIPTION c2tqfQCrZIKcqOWqTmZcXFS (test code = 3366) pWAMef6odOAKkqLQlCsCoQd NcZnRuYmpcdWMxXGRlZmYwe 2miz459bTLsd5ioMCRvCrP6 gLWsWYQskJFpQ275CJYsWCz cm1gfk8BpPONzuCMzt0J3PM TTsrtxoJk8sEjsA22sm0B8V awvI1svHRRuCGNdS9QtQN8l GVTsFmn9UJU8CAT7IFDyRBZ iB9SoPG2pRZGseAXmEOb8e8 jhsUwbISElMNJ0p3xqJQaey nDsQK9sas7wuCh3y0cyroMd KAVfGBDhnPWYUQTkU5QewCi iXj7onWu2hNnoZiddTMA2Rc j9KZ7ynt90jro6kUygWYNsh qcdRfQ2PNnxPFRpatemWBj0 MFxtYXJnbDcyMFxtYXJncjc yMFxtYXJndDcyMFxtYXJnYj mcSVcqXQElGBO7VDwqq399X PU4XHhqv6utx4xrhGZeVra7 BKHyKuSxRduhRGvkc8Tpe1a iDFYqfo8pUCD0fKDetLczi5 J3xEVuPGRriOBcoiRbPKSeU jJ6PWabMV8ued26KZXfCQP5 rx1uqYMvmUiwsyYsxHMhHBb zN0QtFXDej743ADJlX8AqTH Mur4U4zoOpBuYtXRCimCY8u pF1CUDoQIu0cHKmdpQ7vrWt hQNyA5uetG85OsFizBNbE3R gvE29NiDguXFvY6BjwE35Dt NraFYeQ2LgmU40RiQpgCHtW DFxyAMzDk7kbRGhkIBfd8Jd hUEbVImwS52hq908NTTwvoZ oF5ppxUIqcyteiIMzucbnJE uqvuX9LFWvZSThULifMFZmL GZzMjBcbGFuZzEwMzNcaGlj dSxxIZvfBhJxUWEeYYuiO2q cZjBcZnMyMCBBLiAgUmVjZW s6UABysS9bPv0dnCQfjB7jy ZWgRVxsWTX8wTKqDGQlGIHa RXXsEE62T2LznE5iu5BxADI cz60kZO0aWVZzgXFkAYufsg FsdmUgbWFzcyIgaXMgYSAxL hCiZ92peC1akPWxD6KjMQS8 IDAuMyBjbSBpbiBkaWFtZXR ayaT5TA0klLuvayF8aYZyyQ KvRWaanUYeVPyyNKI6Rp5hh MSwJIEwiiK5r1EkKLksQOLd a2NweUScIOHbRacwHOBquOK tJQZvzkCywXlsfQ3sPmIdZa MyNFxwbGFpblxmMVxmczIwX AyokvifECXuOUroF5ubRjMx QQVglGiyJVlvi2ByRDXxBRX gGrEkRVVeEJKsz1mgJR35BC xwbGFpblxmMFxmczIwXGxhb gzmKHNuNTuwV0zbHtEyPJQt dFnaKYagx4GuEPTaXZAqPeA ccGFyfQ== MICROSCOPIC b8kxaPPhEKVsfVI7ZxLxKLY DESCRIPTION (test code li8dkv1QitTJklHYpUMeoyT = 3371) LcafAsyb54rVE5lE78SX3tI MHjWbV1EMQyelJ0Bzz7RGOp GEZblBAiV217q0rvw3ewovK ffJY3rOnfHOEyiqhzZyN4KI khBBHomdazMBm6EIbaSDAuo YY9CPWaqFJtZ5KqNMHpDX7p knl5NUC3WRmiEFIkMxV1IHM xbMOzEMTpyUvkDQnfj294IV H7LiEtMWKjbkQwmLmwbG8hA jUrVTUVUKCgv1FzDHPrZVIe cn0= SPECIAL STUDIES (test e2kdhTWjOHYmeDO6OiCqNDU code = 3376) ea4bwq4HvcYPjvOGaWFppmF XrvlGwlb05mTD8nV98RK8zG ADrLoH1FJKofvX5Fyg5ACEa ZNSrgNDzC449CPPeQQYaeXo rpna7tX08TFNksY2cfRJkQN eqduEuZFwvtgZeowFrBov9V QT2hJifCXGmkzmdYlE3RTom SYVvgzpjEQf2LWluQGGdhMC 7SRSxhSRnT4BjJCEbOL0zlk f4RZW5SPzwQWWjKkU6LBFyj BEuJNPfvIlaJXigo445XFC3 OySjYJKmgdRgtRyzyA5oElK cZnMyMlxjZjEgVGhlIGludG CcvHEicWT1rC8mVY6vXFUkj LQeI6HnZPMwmeXvnFAgPRX0 tKMbwMKuEU8dWSashVMnj6g ej0LvB7lhsLjerLV6PN5bQU CrZDAiWHxeh1ImaB4yRtrjG LZdS9MxPUVCP4POUJLkULAZ Bq7FQcNRIaXeEqFQZq1uHEp NUywgQUZCXHBhclxwYXJkXG FkEFVEl733lh7bLTQlwWHhg jGLgUFmoY5gIBgjZTjlFCcj mXRxVQmrz7ldBOFfr5q6gIE jZLTduzPno3ejVZhrnwDnAQ MnfJArbITdJOPta35xVLixc EnhuWjdWMKnf9BqpNnkd5Ve RcShZAcqg6DwI77kfIEuoBQ pdOukOXIydyBhGIWeg39gt5 kcKMKyAcW2xJHnjLK6rMRni NQod4CvyRzwHHFdb5qlHBZc hc8vohagdDSxy6ZwhO2tpkf kFNqqdCGwriYaEHKaq5i2qH BdWBAiMKRqZYdntZn7PICjr 866sg3mlfM1uHYeISV9YEph YWJsZSBhcmUgZXZhbHVhdGV xXXQafyUxMDBghyGGuW60pw 6zjFY6x0FnBC1yj6JjpQJ2I WNobmljYWwgdGVzdGluZyB3 SCCorCVpOb7frHMqSGH9ZWW hmXpvbgHZqJ6xBGJwBMn1OD MqOlYjZmqfcyEVWCMeR2XrV ZSchcYbqsxzVXF6pF2kn1s1 HCfhTj1yBWTprbrmm7dcurB rjFNhm8CmOMQjsmUwq7KfPT VnbwTixTAgSEKuqlStyy0ir rEzKXKzYWWnN5SpfkbduDav meU4RKQaDXDkqVHnnIuyXIL mMEv4FWqexdKkv5ZrArQahb YbmTPieaKySL7rBCJvyUHte cPeJJZ4EENnRZMHRzGkTAUv m8UeGA0iWBSykXuaYRByxN5 wn7IzXTHro46nSRBtOHLGID EgaGFzIGRldGVybWluZWQgd IlayMXwyQKyLJMcEQCeDA9x HPRszyQupGKdz6DloNIbvlN mq5AvmfYhGAUrPTL8ElCDlS XkdQKtpXCgsjN3s7XvVRAbj qPyxDfudVEnrSTtrCTvv1Bb tu4lGWGgc4vzkYtjQK7tkUT iZSByZWdhcmRlZCBhcyBpbn Mdn1XfL0Y4aG9aZLpvv5WyW l5yPLOsm7IyjeNdToRPjMje VEvlFm3iHKWgbvjabKJpI1H ydGlmaWVkIHVuZGVyIHRoZS KSqWuvjTWaqWHEXTXouoQ8k 2F4PWttfEBdoeYxUV27QQCu KP4dlQFcgJUna7OfNKp7FVW uT8hRMC83ZFzvSMVadKTcvT vyoAMlIJQkNLIpudHxvk7rk EpyoTOyn27lcQJ1gOJ1MGIw zC4wY0YiEQroQb4xMEGweyq jqQXvjLmqQq3ecIEfdU== Gross assessment was [facility] performed at ([facility], code = 2777) Department of Pathology, [address] [place] [address], Technical component [facility] was performed at ([facility], code = 2778) Department of Pathology, [address] [place] [id number], Professional component [facility] was performed at ([facility], code = 2779) Department of Pathology, [address] [place] [address], [facility] [id number] 15:29:08 Test Item Value Reference Range Interpretation Comments Case Report (test code Surgical Pathology = 104) Report Case: [id number] Authorizing Provider: Logan Russo MD Collected: 06/18/2021 11:41 AM Ordering Location: [facility] Received: 06/19/2021 03:44 PM PERIOPERATIVE SERVICES Pathologist: Tom Paige MD Specimen: Mass, MITRAL VALVE MASS- for MICROBIOLOGY then pls send to Pathology DIAGNOSIS (test code = [id number]) uZzEwMzNcZnRuYmpcdWMxIH tccnRmMVxlcGljOTYwMVxhb kReUVXcjULeS7HmymkmMNwb GJ4wCL8fvJqxiMJbaUVxMNW iUoKmt7fwi152iCMdo4qnLC ZFdbppyUd5oInoH15ew1V2Z bkvY69jiIQwGPS9TZMrKVEa xMFaFPVvSSV2FUPryBOzC7n zPKBcBT8ztqoxWNdhMCdkJD YbzKD5FIJmwMZhJ4BlSIJcF RhvTDUmvhk0JeSoJi1lvFMq eTcyMFxwYXJkXHBsYWluXGZ sCkRpWX9gHNKDOcRgBI5PRK JBTCBWQUxWRSwgREVCUklER A7EDvGzXJ1RTGPYHBADYmad cGFyIEZJQlJJTiwgQUNVVEU tUC2OYWLOWOPSB2WAUFHLX5 RNY7CTPQVAJxUvL4GIX7zQZ FFVAOfVJx6opPPiYFLEUVLR KOclY3TKIW4RCYVPCxIENmZ LC0BNX2ZQVX8DK1LTIBFQFk ISUX0HNO8WGMDASVNBXfNAD BWUTiBYX2wEE7ovEQeaWTIm R94JPaMAYXILJ91hQ5iTQXX ZYICQU3DLD5sSU5wUPXzjC5 YIIVsXFrNDLaTKCXVTKX7GA tMRAR9uPRIosp89IEM2PwWo h1A0DJQ8HKOfIBJmz8deLZO mbGFuZzEwMzNcZnRuYmpcdW NpBWMtHsYiq0wav087dFQcc 2jjZTXiUhU6hIOvYWMklPKw M989GBYeHHuvi4siw0VoHVH hhDIhf3U6AONObgplgZt0hF hyT57vl3D5BavcS1yxGWAkD VOmK3VvAJ4jVQLhFyz5JQB2 OZF4RPLnUADeI6UmYB3uXJX wqDOoWWf4y8kotZxdZNFlFI O6r6gyZVsdmqTtYQ1oxj4wf Nt7r4wpcvTqWPEiJUNnbYBP OWJeP5ZzzKnlBg4tfGo0zOw gLdshYMC8Vcd4LU3mvj27mw o6fMgiGCQxlcbhGsA3OLgmB PJebjstWCj3RBxsNXZvgBZ4 CMFukHKxH5MdOXOdJB9fznn 9VMH5QWwtEGLcAiC3EVHdaA TiYUFgmDetMDdal560YQY9W cSqLP1cG3Qvn7R5tS9ntFPo MBVlmUNgShTmEABwrl9obTQ xDBsev5XaTJJ5dgG8dPNzqE YzZHNpCsI8JVdbQM6xam13X ZMeOZI5it7xgKBahXzynqWg fAQiHDslX1IzJBHqf787BFL uY6MxPRFhs7X0ycOtSvUdVL DjqDA7jgQ7ITPwWM1wznjxg 2qlNSbkEPsqBWQmmbY9xkG0 DMFhgVIgO6HkmO3cZOJtUS7 pzusrw6dnUHH4WCnwZLEuJS A1QtUbKBIab1Hgxsf2IdThk 3XqfYFdONfqJ03ze026YYPu niYwM6pmkJDdylcpgSTaozr dJZwygpX0HNPtOHzblkgfMA CxKZvbP3ylXpMcCWAvlAtvC Luho6XiJYEjUXLaMoAxfBDf NHBnIvl1GUAsdBLkZYNyDzV yV4xbjljvJoWXZJBwp9yiJ4 suiEUCpDWhB1MnJMnwbuTsV IskBVwhMbRlNZEvFI83PEX0 WRUvkl57 CPT Code(s) (test code a1yffGSrLHUodHN1JbHfCBS = 3357) cm3pcv6ItmSUxrNAkPKavpN WnjxWefj12cUY7dX82GQ7uI YZoCsP3AUDeprA4Qhf0ICYh FREgyJUmG405c3ise7duxkP rkQN8cYfsSBLeetddGtU9BC yrUXGmpjbfYJz9KKbvAKDig WZ4JFZoaSCdP4RkNPWjYL6z jgz2XWO3SBwtINFoAbS7DRB ugEKdZZPnpCwlDRzop900TO B9WbImHVDyutTnwFzitI8hH pTuIHW5LCBySItcXTmkNXQR E1zxSOC5 CLINICAL HISTORY (test d0jcdQNdQETkhEN2DsGdMWX code = 3356) wc6zjv7RdhFEwqSQgIMlojN LocvIrvb45rKN9kV74BW7nB HHeRtB8PZQfsjW4Ryq1CMAw PNOffJYmW461n6ahi2kpoeR vzNI5bAnpIHKrfjgoPwU3PZ fiTBXkcrouKSn2CFyqCJMpl DG4UTEoiEXuY4JmUVCuWJ1b zvb5YJB3XCeuDLDrFjS4IDZ giEPnCWSkkVwpZPstc329KP S8XvBfDDXvasEhfVhrzM8oS uHqLNGLyoWbQ4QrHDy7xKFw cGFyfQ== SPECIMEN SOURCE (test u5qknKWvKNIrvLD5BeFhBAO code = 3377) nt0qtl7HefTUjiSLtRUeybG AethAjip97mHS5oL17IN0kI NNtVkU5DQCmzzA1Non6DPQs AEYxbMRdV158l6zsy9ojvxC ykJM7jEccWTMsbyouWaT5KQ scRJIxjdqcBGs5NCodBEHkn NO7GOFbqYRgN7WgMROwTR3z ers3KOR8JJxqDDQfJvN9MUR psMRcHNUeoOmdBQbew406VD O0JvMrLVBytsXupVfpqI2wE nMyMCBNaXRyYWwgdmFsdmVc cGFyfQ== GROSS DESCRIPTION t1ucuRXeSVWqcGObBaFoKFF (test code = 3366) hPINmo8edWVBgcOSsSsPlFz NcZnRuYmpcdWMxXGRlZmYwe 5rbc538cSQjx6zwEMZsNlZ9 iOFgFWBzrOHmJ233ZSAhLFa ih5myt9WfCKUmpCGzb8Y2TB NVfxximEf6nOrqH96aa8X5K bumU0roBCIaARTnU6MpBH8l KPNkTew6XBD4OWL7JDMjWDV hX2AeOM0uNHDaiAYhHIi4u1 kjqDofAJWnURL4k9dpSWtta aWdNH1arh4drYx7l3rgvoHu FPLsIFCauDXZUDKbA8YibKm aTq1avAb6tZexMjuhPGE7Ns b2OS7tcj99yto8gCwcAMPdx hdkAwY8LAksQALhlwhlKCe7 MFxtYXJnbDcyMFxtYXJncjc yMFxtYXJndDcyMFxtYXJnYj zbQCghJTKjTZH0WWafk622E VM2VXtgs9exy9ipoAOkUqm4 OKLqEsKpCflhFNzta6Kyc3l zQKYqgr6lTWP6zJRigPsfc6 V5uFVpVSZkuWXkgmPsXBVbS wY5EBwmAK1yob29CUCyCIB1 la1tuDSznLyqqaZacVDmQIm uE9GfFAIjh830WEGdF9NbOG Tii1V1luMeRxOaTLPudRC2d oZ8ONQaHLf3zILvhdV1lnYa yMLqG6dacC66CoCjfXPtX8G hxT55IaNkfRMoF2ItcQ56No TfpKOhC8RrrM00AyQtfXVmA UBxrZKgDt6kzTHjrRMdd5Gh tXEiAGxvQ80fy070DOAsrsY bE9rblYEnbytheEOggejcTC vjbwQ8HDCkYSDnDTebFKUvM GZzMjBcbGFuZzEwMzNcaGlj eGxpJZxgOcZdKYInYQptI7j cZjBcZnMyMCBBLiAgUmVjZW e6HPIdsP8qQh9bxPRzrQ4ia BKtIIzmAMB0oQRzMQDxDKSl KGDmNZ27R5PcfQ7cs1FlPVW bb67gCX4cEHZgbCQuBYwywu FsdmUgbWFzcyIgaXMgYSAxL aTdA98foK8cnRLtZ3VcSNG3 IDAuMyBjbSBpbiBkaWFtZXR qviO6OS8evTpirkS7cQCebQ JiATkwbCHbVOsnXKR7Rp2mk OQnCUOavoH2p3JnKOqcFKDf t5UzqDPwYENnBekwDRFbaTM sIUAbekAwdMacuC2jTnHmNm MyNFxwbGFpblxmMVxmczIwX UfzxidaYSPkPCrjP6tgQsXo OMVlpTzpUKfqz9KbJCQbJDL zBcMhAFLyIQYqu3szOZ74WG xwbGFpblxmMFxmczIwXGxhb kcaNMNjYUtoD1hxStPpAKBi vRbuISfwu2DxCPXaESCbVwQ ccGFyfQ== MICROSCOPIC k4jukIQsBEHnbMZ3LiTaLNI DESCRIPTION (test code iz2ehb8VluESnbOEdDOxsbW = 3371) EfziXcin12tEX0tI96II2nU LVkNoZ1JXJgblJ5Xwm4RPYn XMXomOGeF513j6kga5mxfvF nrAE1rFtxOQLkdgqjRkG0VK xoNWXfenceGRs3CGqeOHRpr OO8AIYvaMWwC9FnJDVeFZ5k dqy6VFF7OApsWBJwGbY2SVZ eaLQxUCCscXayBHhty654UO C4HxLgJDGlnvHczTkzsQ4bQ uCdQZOMKPKuu1OgSZFxEUOr cn0= SPECIAL STUDIES (test j0fryZEgRCBfcHW0UhXbSIN code = 3376) qi0suu3MesRSqmOSoMLzxzW RqcnQmxj82zCJ6qJ50AA5eR VSdOiO4GZTyafW8Bea9ILHp HVMmyATnP881KSZsAKTyoQp mhgb9vL94XKProB8weGYhSA wbkcBdYIwsyzSzveCeYnz2H PT7mSffEBAtlegxNvV0YNtg VHPfqrlkVIe0WSejKXKtlVQ 5HNObiGKgP7MaBMZkEO8ufb n0QGT5EGqmMQDxMkD1TWWfd RTtJRZhgHppKCkne954GTA3 RtWcCGHkvxAglBaclG8bYsH cZnMyMlxjZjEgVGhlIGludG QeqGUdoCY1bK9cIN7hUDPuv SMvP1BbYKGvksQupHGvNTC8 zGVcxZViZE7wQNuovQNvp2h au1VbO9hjiCukcJJ9HD6aQJ VcBWAzMUuhm4SivD9nWuqgR MHjP4LoZPPTA6OTARTlIZNY Tl4ARfUZNjDdJbMHZu2mZBf NUywgQUZCXHBhclxwYXJkXG UkMRSQp044ch9fOZUjvKRet xIBqTPtwJ2kDIstUItoJVeo qAQvHHdtx4ezRVVck7x5nYM xHROeztHry6koRQakqiZhJP XyvNPrrRLzUIYri79yGQhhd XiekYdvAKTpk8YhwCrrr1Ku SgEePCgcw7PpR76hlLNwsCH uzTbhRVLhbtVgQGPul56nm0 ctHRDoNzB7oWJmlSY3aCNbh JInf3RriDvuDKAfu3atFRIa ux4tnpvutLNps0GsfX5sbpi ePAjetPSvwuPdLFJhh5w5cB DbCZHyJTYqGNfkfJj4GQJou 615ug1ausY2lUBoNTX3LYir YWJsZSBhcmUgZXZhbHVhdGV oMLJqokQrNBYdulKUwL71ie 2iqZE7r6FlMD4ol1FnzXH5S WNobmljYWwgdGVzdGluZyB3 PMQpuVBfPy0giBExTKE3UJE fcErbzaMGpT8oGDErHUy4OE RcTjNpRoenmvCRQEVvF6MzN MWxkaLyhdsuEPU9bE7pu2d7 XAhmUk3rSZXsagowp3rwcnI nhJQyu8TpEBUxixAme1JpCZ DcquUozJTeRYNdjfLmsk2po dNfFBSpXLJoH6AkipsgrQlo xiX9KQMaTRCxkDRzgCbrXGI nXWf5DFjvazLgv9MmSeVhez FnmKSmckHpJR7uSUNygMBvh sPlNYV0EZEpIWBYItVnRGGe q9XhEO7iJBYyvGqnYPPcgX0 dg1VoYGHsv47vTTLxONLDVO EgaGFzIGRldGVybWluZWQgd NiyjUEuaWMqYAXhTCFkSQ0q YVCodnVfnHHaw3MauIGfofX ep1NfiwQrNDRmJRP3MqUDcT TfhZMzrOGglpZ0h1CzQAZed nOrvJrgpHOigUBykAXod3Dk uw8gNQKls8vuiYurAA6sdSS iZSByZWdhcmRlZCBhcyBpbn Wki4NpP1T8mH4kVGmjk0QhK i7pFERvz6TqtyVkKjWGyLud IMmgSu2aDHPdyribmDYxZ2C ydGlmaWVkIHVuZGVyIHRoZS MXjJxuiJKylKRVRJGttuH9l 7X2RNzuxZFnvoPrMR66OADk WU0nvJPuuIBmi1MmHHa7XRY gG2wKSB76FXxpGUWlxGJdzO mbiITjSFJvZXCmlnQwlx6ub EzjcTXfb69soLC4dKB0QKRl tM6aO6QwOQdeLc8wHQPdxco thXEfgMboNe5miSPvjZ== Gross assessment was [facility] performed at ([facility], code = 2777) Department of Pathology, [address] [place] [address], Technical component [facility] was performed at ([facility], code = 2778) Department of Pathology, [address] [place], [place] [id number], Professional component [facility] was performed at ([facility], code = 2779) Department of Pathology, [address] [place] [address], [facility] [id number] 15:29:08 Test Item Value Reference Range Interpretation Comments Case Report (test code Surgical Pathology = 104) Report Case: [id number] Authorizing Provider: Logan Russo MD Collected: 06/18/2021 11:41 AM Ordering Location: [facility] Received: 06/19/2021 03:44 PM PERIOPERATIVE SERVICES Pathologist: Tom Paige MD Specimen: Mass, MITRAL VALVE MASS- for MICROBIOLOGY then pls send to Pathology DIAGNOSIS (test code = [id number] 3220) uZzEwMzNcZnRuYmpcdWMxIH tccnRmMVxlcGljOTYwMVxhb hSrFGRilKEnS4HdvzkzSYfp BU3rMN8ndJxiuHMlfZQsGNE oFuLfy8zgv868wXIho5idDH VNjgyrdNf8rQmmI19ki5M8K wvxI42aiJUjCUJ4HQUfNVHr ySJdYXTmIIG8OXGeiZBwA5o wWUPfLV0jbvxcBQmrOPuaVP RvqPO3OVWweYDsM2IkYHOjR PerNEXjbmq2OoTlCv6wqKRs eTcyMFxwYXJkXHBsYWluXGZ sEgOhQB3tKVBVLqSiRO9YFQ JBTCBWQUxWRSwgREVCUklER I3EVdXkYG8VVOPHHWTNVkxr cGFyIEZJQlJJTiwgQUNVVEU cTQ2ANVKSZNTLP9QRIVDCJ5 BUK3UMHMCQFoCoO9WMT7jIW PBABXmKLn7wxWBjKFOAVDHL RPrrU9OUDP7GMDLQSmMEEaR RT6QIH3XIRO9JB0WAXMRSIj CLRG0XZA1REWCTPAAXSnRNW IXEKjLKU9gMS0lfRWwzLIKn R05EQmWFRBJXJ33wQ9oWGBV THUBND8QYG7eVQ7cMURtcJ8 QMSKxCPzZGDpGOHNVBCL3PT sRDAP2xALMhcs56AEY7AkVi s8E2TCE4CKHvJLAkh1qjIKN mbGFuZzEwMzNcZnRuYmpcdW WyENYnAnLol7hah378eVXfc 6sqERNcTsS1oBEqIVNujKXy B668OTDdGRbbi0ano6FfJEA xtICoa8U4KHLKxgdyqJi3vQ agZ08nt1Y1YjlvF1qfEEBnH WUbA7ZnXA7kRQPjPqw2XKN7 IGP7DGMsTJAoV0SrIJ1fDUA tsDOmFPf0h8quzDooTYUeDS E4x4pkXKymwfRaGI6lwf5ri Sz0g4dymjCeEIHpHYSgoIMB JPIbZ3NcsVfuGm5yiSm8pVu pTppxLNI4Vrx6PH4gol93mm m0sOwqBOSbpohnVsH9DDimV YTlyshuAHm9LPlgDDYniDI2 IAIozLAgV3SmJXHeMN0gfah 4REB1PEewBTQcMcG0UINshO CfVKHjsZowCWijw418SDP8C jVhSX6lZ7Bgu6X3nD4dmEJv VGFjbEMaJgIuVTVkep0coZU xCDpzr0UrSHF4boP8bDKutG LwEKStWlF1NObaIL6uzc65N HHuUTJ0ol1hhCViwQoayrMz nHAsIRinL2PjEMNku263JZP kI7OsABKdq8X8szIdEaNeUK VoiVI0hbY5ZMCwZI3gtppet 2aaWHkwCXgmAGUhmtY7qpN1 IYAgmEMfV1LcyW1sWQYdBJ5 qdzhki4dtXBC1YTdjSVMhCI G1LjUuGKBkw4Bwapb2ZaLru 9HucKYtIMwmQ15xe156HTVh giWnJ1eztWSmdxhvqCAdbuc oVKnulqD3VTTePJhsdmemRB XuOOtpQ2ncLwQtNBKeyWxcU Axsa6EcIBQmTJAuUjWhlIJj OASkVcu3DILddLRsGYKcEjM uQ3irldzzNqPBRUZgz3pxJ7 rgmWSKxNWvH9LgVFhkbyWdN YykABbnAwJzKXWeIY06KDL4 LFZcja59 CPT Code(s) (test code y8kdpSSiUTNfzGR6XcNuXZQ = 3357) fm1gyg8XuuMEltMBqZBevfV OwisCeze03tZZ9sH45XD0uY SPdZyT0IHHmlrD5Prv9FKMu LNZsaISwH158f8jii6afgzN cnYJ6nWpgNCBsoqgnEjL6MS fmMKOzsjpaRFf2CTurSJEto YL2KLEfqCXcN9DyLVIhMS4m ajn2XMN7GHprVNZvDjW5OSV gmZLdWOQvgMydLOpns867QS Z2AoFmHEHgchWwjTammI4qR gVqYBE3ELPcBQjgYKhpWPNK I4gbZHH7 CLINICAL HISTORY (test s3wsiGPmNNRfnIF1PwXmAEY code = 3356) vf5ljo2OwdFKlqDIvBDbrkI TniiBfsm97oSP4jE50ZY5rW IQlMpC8LJUqarA8Iit7TAMn KQYlwYMzL902z5asg6stmiE veRL2vYgfHQTepdmcQtU1ZX lgYJFfycshZNc2NNbsITOmj PV1OBQdlKJgK1BeXCJpAU3b nvz7TTM6XEjtFJOcByC0BSN bjWMtJYShsVzsOPaav587EB M4OfVlVXKudgJgmLtdxY2sR pPyVUNYimScI5DiRYj4mITe cGFyfQ== SPECIMEN SOURCE (test s7qirVMfSFEvaMM9ByAyEEU code = 3377) ms8hhf0YfgTHqtNEhMLfhiD SoqjZrhr08vNE3dV82KW3rQ AFhSvX0FXZbeiK7Mnw4ABUi YXIqpMBkZ868m7jka6sxkqW pkOP6tCwuKRIpikadQkY8CQ cpQZNufkitDSq3NOdpFCAhn RL1IXKjuKKrQ9UxPLQgUK0b vpk7PRZ4UNftGDOaUaH3DNN zxIGlGKPemIjrWIgcy899VX A5QrSoFXTrriDzxYkspU2rN nMyMCBNaXRyYWwgdmFsdmVc cGFyfQ== GROSS DESCRIPTION f0tehBTwJIEgyRKuDqRoAUA (test code = 3366) iHKDmp6bpTQPdoSKiHfRtYr NcZnRuYmpcdWMxXGRlZmYwe 4qcr996oWUqt5deCINrWwE2 nELvBAPybISsC396OXAbAAb rm8njk0ErOQQxoTIen6S3HU XOacocxEn1jTzhT06we5J1L byiQ7xbXOBqGLVrP9EaKL0v QVWfJuv4MRG8GKD9XVCyONT sS5OxGO5wGWBgsAEeCFx0y4 fepGzlORFsNQY1j5vbMNnuu dVoDN7rup6hyEt1o7bjylOu GITzGDNqyOQWLAUeZ4OnpZp dLv2evRj2bAguWuogPWX6Jk y6OC7avk69vsx0zQcyYLQzz waxRiC4IUikXTUhkmjvYJr4 MFxtYXJnbDcyMFxtYXJncjc yMFxtYXJndDcyMFxtYXJnYj rwJWiiGBOaPET4HDydh486U GB1CXsoa5vkf7xlcWGaApp1 TELcTxLkSteiMWgdg8Epv8e aAORyyz7kRXL4mJNiyRuha0 A4jAVtRIJypLBiseZlVKOkM sT9TZfwLF4yid52CZEuZPU1 hu4icOCuwJzycoXpbPBvHZt bE3VePOHek132NRZkO3GdSN Eox2F8xfHcNdObCGYgpSN9d yF6PJHsLEc8cCQlnvT9rnPl lYPmR2kylU73LdTaqJMcU0N pjR01JcTwzZUeJ7VbdL91Xx IvyYFxU3UbbD13LzRhoUExP ISdaSXgAp4gsYZznTNxh8Ow uUHvVHxbH45ze330FAQrxaX oS2jaxDRvqbpqcPWllopiIH hxffC5YFVtEEFcSOnfCNPlT GZzMjBcbGFuZzEwMzNcaGlj hAdnASwpRoAkWYUiUJomW8y cZjBcZnMyMCBBLiAgUmVjZW c2GNMrzS9tTh0beZFoaL7mf ZJiDZfySAQ9kIWvCZNsHNMk SZCkRY56K5SnhK8an7QfSRK pa65rIK9qQUFxdCFrDOpbyt FsdmUgbWFzcyIgaXMgYSAxL gBvB58tsH6afIKxX6IlANK6 IDAuMyBjbSBpbiBkaWFtZXR vjdO0ZT6afHisrfZ3nXGzoW BwCNjhfBKyPMyeYWS1Fv4zx AUqRGBydwZ8k7VnPTclQKDx x8DmkIMjGYMdDglxMQTcoJU mMRGwzeYaqQcqsY8nViUnCq MyNFxwbGFpblxmMVxmczIwX CkhusabXUQaXXzhE3bpUnGm VVZwxVaqGAdoq4UhEFUrYTS eBhEcAXEuRFNry0tbLP88EQ xwbGFpblxmMFxmczIwXGxhb fmlPIHqUYhiD2hvQnCcEAWd hVwkFHhrz7ZsZHLmGKKwAhG ccGFyfQ== MICROSCOPIC l2idnZGmJMSuoCJ4BeUxIQS DESCRIPTION (test code hq6krt2ZajPAxdQKgRWkmmR = 3371) KaafOddk19iWS2jI88JF4mH IPfRwD7TMQmpnZ6Xkc7YFRc FUXxpUQyU970i0odm8aoxcJ vuSN0wSxhNJZrbagoKxO2SI ryUELeybinJCy1MUmeZQKww QK1NIAsxNFxD9MsTYBtQL1d fww4FKK2QTrnRLTeMhF5BAG qpIYyVXYfkEsbYXfoy939UK F4NdVzOYTywqBhtPjlqC4pW pXaRZAWMVGeu2AbDJQpJDTu cn0= SPECIAL STUDIES (test x1areXIiULGrdIH3KyLrJCZ code = 3376) ra0suk6TbxCNazOAnZXuydM ZsxfBzwi79oDO0gF40MX0sD UDqKhK7ZBIsnkK3Jci3XPSi TZAmlCPnV888YOXtGNLpnIv lvow1uS28CMDxyE8dkYEnBN wvphAnZUvnkpMmqyTwYub9A LL7zAjjPCEfvfrbVbS2JMjl HEXdcivrUWb0URhwGJZmqDR 2FTQxcABmO8AmYJAjYL7zrp j1MLU9AHnnKLQrHsS2PNFwa HTzCMWbzZtlWKmrh336XYE2 OpChJRMycgWyhDwiiS5qThO cZnMyMlxjZjEgVGhlIGludG SecARvsXT4rW1hQQ1qSANxj PYfS3VqVBWzouHxoXHeKOG6 aJOtuIMaQK5gXJjamMRgi6o iu9UqC5gjxYwqpRI8JI2iNV JlWJWcEDpbf0LetG2kItksM RWxF5PbOESEA6JWSGMbMIAM Hl1SZdKVDpGtUeLOUl3xBEa NUywgQUZCXHBhclxwYXJkXG DiUNFRb126yo0jIRFlkGKcl jCBlWMffG0qLRfhIJawLRga fOCiZPggi5khWRFyp8c4fBM pHBTujgZyf4grOZbvzpZkVH GrpAUdlLFzJRBos17wWTdnr ElysNwdCQDfh7TsbElep8Xd TiCwZNgic8EdV23ceLNjoWQ frAbuFFVircGkWECua48kl4 bxZXSzHlF9qJAneMX7tLFfk UAbb5ZbaHvuRQAlp6urRQSq bc5unfljtFHwm2KqxR9xmhh eDHietVWyaqPeUAQwq8t9tZ UaONGzONNtHUjpiZh3AISnv 284pd8dgkU2fZXnCDR1FPuw YWJsZSBhcmUgZXZhbHVhdGV sWWZnbdQyBGSpplRLmG08iw 3ebTG1o6FiDD7jc8AowBC4K WNobmljYWwgdGVzdGluZyB3 XSSbdBVgUn6naQHpFMX8ZNI diAuggoDCzZ8uKMRrAXr5DM RgHoBaQlhhgxWEWLCyB8JjQ LHihsNnhnxxXCP5pU4dl1v1 HSqaJw7uHNDzixhqw7tggdO dwFWjf9ZvHPQffdAcf1TqSI UhlbAguTRvEHBhwxPmka0dt uOjWTGjTCZdH5JdtfetxNjt kqD6PEWrXCEgdIPwuFsrLSW aDCi4BZgffjEiz4AvPvYhhc XyqOOpcvPzAI9lWIWahPEmz eSxXJM3NPKeJIQILoExRPXd n7JaWZ1vQEEecKewYZXvoM4 sl0PcAZPoc54gJJBhRJWSYI EgaGFzIGRldGVybWluZWQgd DhzuCMguUNvIJOcMKFyNG9n AJXhsaGpbTJhl5FkiCQpakK qz6DubhRdAGJhEVW2QaCVvF BriROnqUHdtxN0i6TgKCYro rKzxGolkGMlnUFprTIbv5Dm un0mZZPmc0aqfMotAU6egCP iZSByZWdhcmRlZCBhcyBpbn Ifs0TaX6P7eH8oNRcij8VcM q2pFWKfm7NvxiIsQkUOaOhp UYeaYc4oWOOyqxwxcFEqC0Y ydGlmaWVkIHVuZGVyIHRoZS LSoRzbaYHkoZTSTQZaowZ6v 9P3WQtczXBdygEwQE30ZTXz LG5wiBFgkVHtt7VnRUw4UXV tP6hVPR12MWrrMXYuqQXasV dooXFrIMGjQJSpkxMozz1cy ZyswZQqq59ezCS3iSV5DDGc pU0dX1PyHLwgSy1wHBHjapn bvHKpnFawOd7wdNVpcQ== Gross assessment was [facility] performed at ([facility], code = 2777) Department of Pathology, [address] [place] [address], Technical component [facility] was performed at ([facility], code = 2778) Department of Pathology, [address] [place] [address], Professional component [facility] was performed at ([facility], code = 2779) Department of Pathology, [address] [place] [address], [facility] [id number] 15:29:08 Test Item Value Reference Range Interpretation Comments Case Report (test code Surgical Pathology = 104) Report Case: [id number] Authorizing Provider: Logan Russo MD Collected: 06/18/2021 11:41 AM Ordering Location: [facility] Received: 06/19/2021 03:44 PM PERIOPERATIVE SERVICES Pathologist: Tom Paige MD Specimen: Mass, MITRAL VALVE MASS- for MICROBIOLOGY then pls send to Pathology DIAGNOSIS (test code = [id number] 3220) uZzEwMzNcZnRuYmpcdWMxIH tccnRmMVxlcGljOTYwMVxhb cZpNWUzfVCvO9XigxkuIZyl SO2aHI3hxVbwoIFtjDXbQVC fVcFbt2dxe200yCUlg6onWY PFuhcnzFj7sYlfF82bc8U3A xlyT59dfSIvEXB0GZBwEULp oENbLLKxRVR5WRGeyIBlX9s vUFRsDG6aecglMVceKPukET YwqYJ0OQAkbRJfV0IbOUYjV DjlPIJhxvt5CaDcAn0mqCRf eTcyMFxwYXJkXHBsYWluXGZ yDbDlSH6yBRXDZoKpPV0UDW JBTCBWQUxWRSwgREVCUklER M3FKlAcAD6LDLWHQOWXIoeo cGFyIEZJQlJJTiwgQUNVVEU eFT4ZTVRJIKHCX6VFKDLJQ7 AXM5XJIVTPTgWhC6FSE0gCC RKCSEcLNi4chPLfOODJARVG TVkxH4YGSN5EONKDVaXHMqI BE6NQU6KSTM9ZR1PCUWSSEd AIQX5EAD0YKEDVLACSLtXHK WOFCaYZK8mTS8ygXKahOGJz E67KIsMBEYYLF35iK5jPMOA NAHGMS7NDN3qIB3vJUZfzD1 GNJFsXXzFROfQOIBYGCU8VW lGZAJ0iGQZxnr56VUL4QdEj j4Z7EDY7TZReNONsu2rvZDE mbGFuZzEwMzNcZnRuYmpcdW UiOHMjNhHmg2foc898gUVlp 2gmMGIpWpD3nKWkARZmhEDc D275QVEcLEkms7yfx2FbMYY gsVOau0Z2UIYQioewvTw8pC qmI08ce3B4PofcJ4ewCPOdI DUxK5CpSR6rESKkUak8JQD1 XWR7XWXnXKSkP1VaCA3nVTD bwRVuIPn0k5xunVuoVNPxPO U2j1ywBGatsdTwYV9szz4qt Td1p4ajwcVaTLRqKQIhxCAL SZJkS1VipGwmFi2tgLz7lXe wCqfmPKQ2Ehq3AJ5sok41xw u9mXewJFWjxrsiVdT0HNkxP OUyzpffNId8GDlaWCYqgRS4 TJMlsSYrE3EiVLZvRR1vuly 8IRT4XPjnEFWlPnL3HQMrkH UnYMSbqQlwEVvwo704NHO0A iPbYA4sN0Wpy5L7lW9jjXFq NMThhLFgJwQnBVDtgs1iiEY gOUpaa9CuXOL2dwP2bZLwqK ZqDRGkAxE2PUyvRH9tpv72C LCeDEG3us4wdGKvjCrhlaBw lGUoCRuaN9RvHPBvs887DLP iB5FkVWDna4X5kbWdLdDbTF MwjYN9vkN1RGDgBL7eynhxk 8rlFAwfZOnkNYHhyvL7goW5 AWAwaDTxP6QpeC6cSJBtYW7 lffdwa6fuBQW6KEkgCEXoHZ K8AgIcSHMya1Hdzjq5MzEpd 4FwpHRbHMfzP36sc979YIUh vrUuX6pngLHmausvuJAwbee sNNopxaE6KKUkDXiulwumGS KnWLvgZ7qzXkPvZEKwmLftW Wtxb9IsZXCuFQKbQzQdxARx HTWrQwi5TEQzgIQcGAGnKgH nA7ojfsuhJhVPBJFnz1itO1 tukNHNiJDnY5YxYTubxtSaH NtuLKghHnEhSCIcWR05FHZ8 LNUscy16 CPT Code(s) (test code r5exeZZwQPZfsCL6DjSaYTA = 3357) pg1yzv7IlbWKssMFpSPqfhD QgrsNrpp99bCX0hY00SG3kH BUpEfD5UEGsaoN0Azf8QHWa ZDQlrQPwX324u9kot5ntgaT yyYP4oVbnFWRvzivzGeF5QZ jhGXKcvusmCQe8GBwlZYBph UB4YVOqeNTpJ2ZkJCDdOD4t dzg1NBE9DKehNSHgPqF7UMT moIWvWJUrrLjpJNyxt025XQ A9NkAsRFJfexSvoZfxnE3yI qGiFJM4ULGnUMxjRFzxYUUX X0raCNH3 CLINICAL HISTORY (test q4encJLzLGEaoKY0HqCmDPB code = 3356) gw0cue3QdlGYzjMDdWAnxpC CigpPrhw57tTV4xX20JQ3gB KDaYeJ1JFXodcQ6Gul0OSEv LHKwqQJzY329b5kae1xngnZ shTE5jZcuDKVpmtpjYbS9ZI puTSPwlxdnYQi4KUsuOPDjf PU8ZXWxpRAxT2OwRLBxMU7q xuu1KZZ0UKzgGORcNoK7HPB cdKMcEHKbxTrhSNdtk825AU P6NuNsQMTjteFayKuxaC1vB rGpLYUZuxVuF3CcDKz6uJVx cGFyfQ== SPECIMEN SOURCE (test f6pnqPUgRFRcsGL5TuNsZSK code = 3377) wf9rbs1MbsGSqfKVuPFmroJ MnhhDzcr59lCY3fX98ON9tC IPpIxN4MBJhxqZ3Rqk7SGBd MGHcaNVgE654f1ohs7phdsL csNW2xPdlOCCryarzXwS8MN zhZLTfhrreJWk9QWfcHTXqp HW1WTRtuWQyY4MiRGTcMP2f ten2EZL0IIogMTOiRdD4FQL csBHiOWTamYsuNBbxu698MC B2OrWyRHWpvxUguQlwoJ3rD nMyMCBNaXRyYWwgdmFsdmVc cGFyfQ== GROSS DESCRIPTION y7fwxLLaKUOpbYLsDrBfWNY (test code = 3366) xMLRot4hyXHZdnWIpIfEgIx NcZnRuYmpcdWMxXGRlZmYwe 2uym882hLJua2eoOVQoNnD1 xIDwPEZacAHeO517NRCtISq ez3tnf9JsNMPxrESua9E2PN XMbdtqvFu2lTwpK28rf3K9R bfbT4krRECrMBEbA9MxLT9z ZBZiZkx2ZHC7MZF9PBWmPTI xQ7XhVK2eSZJzjECzSGr4r1 lxeHkmOLOtPZS6o9egRTwuu cUaNK8hzb2jmBz8p5btgdMm XYTfPYJdbSHZZOFzE9PgjTq vHo2snBz8gTvfRucbSVU0Rp z9RC0bvf66ovv7oOmyRGWsz gtzMxB4HWboAXUznkloOGz5 MFxtYXJnbDcyMFxtYXJncjc yMFxtYXJndDcyMFxtYXJnYj emBWfpOSZrSFV9YSiwk510Y XR4BSzej9qsp9zyqGYgRei7 UIZgRjOnZaawAKnjl7Nuj3s fECJimc0dFLS8zRNwnXoiq1 P3oDTePZIlmRDwpeBuCJIgP xB1PZhkOC3wtd55TQOpHUV0 kn8kvCOqbAmzbxBgiFFeLVb gI6DlXPCdf773IUIaO9IpRY Afg2E5taZoOyVrVITuaQE6f zU8PQScWBq4iMCgntM4rjAx dZXwC8nfmO90KnLupHQhT5Y qqG42YrXyzUKaM8LiqR72Hs PpdAEaW1DsoP29YbHhkZSgO PQqaTNtGv2atQFugYCib8Pc wQCfCTgiG74pe431KJHzgiW oM6lzePQbjyolbQIskxnxGT xjucK6NNPyNEZiCTuhNFOmI GZzMjBcbGFuZzEwMzNcaGlj bDhoWZgaSrTxAAArCOxlN9n cZjBcZnMyMCBBLiAgUmVjZW q2BTCzwI7yId7uiDRibU4fr QRqOBdlRIO6gSVuOZJnUFZq RSGgUX08M4LyeH9ik0SeKZA lx10nEM6bMONasYGfQUzibu FsdmUgbWFzcyIgaXMgYSAxL lFsB72kmM0coWHmP8GzEJE6 IDAuMyBjbSBpbiBkaWFtZXR qrpL2UX0eaEamwhK6vTVvjF CdYYxwdKBtRMpzQDS1Lm3jc TLaNWYdisP5i8MmTWqfYEKd b3GemBVqKTCsTsxgRGVofVO tPMSlqxOyrRyjvP5iUsQkTh MyNFxwbGFpblxmMVxmczIwX IiegahoYRCxJIszH3uyDkKz BOWhjQckGHxrs3WwYAXvKQU nJqVhKWPsIFTxf1mwZA89FH xwbGFpblxmMFxmczIwXGxhb akdGZFoLWovL1zaSoLuYDBp lIvrPVvkp7XdTIJoYMHiFfX ccGFyfQ== MICROSCOPIC c3uxdRUhBELgiTC0NjLcIVL DESCRIPTION (test code fw2hst9McsBBgtIIuWGweyP = 3371) HagfZdtl18pQZ5dK69YD3dR JQsSuI4OGGcujI1Abx3SQIv SRTtrDMnS791l3pfb2hefjI raVO7aQwbXGHdlreuHrU3QW kxKGRttkdmJWm3LYqnIQCqp JW3WBGhvQElS7BlZWUwHM1i wdn6WEM9QBczYMQqOoM7DZA ugWXqPSEhoIucODmxd530GI H5TwCsWBNwhiPdpHhyxY3zQ tApTDGHXKSju1AcMBYbCKMk cn0= SPECIAL STUDIES (test r9hlhPEwBEMlsEN7GgTvBJF code = 3376) vx0eku4DflLFuyJHkQYhnwZ KjxeCqgr06uKH4cQ79UR3sM WNzSnV5TTKggdP8Fnn9GYMy XOXkiALzM032CPHjHBVtzTr tdyh1oF08YXPfeK7ftSZcLL ozvtDyMNpvrwPrvtEmMgg7B VT6qYepRQEiyhsaNxM9FSvj ZPDzhwvlGUj3HJfmDYDamZS 1ZWHuoHClN5ReNGNhDL4url n3DLY3IAdgNRZdRtF0RQSpg WEqVPEheNqhIRbxd117PZM6 IuNnTXYfrmZifBpqnK7gXfE cZnMyMlxjZjEgVGhlIGludG AiaTHdfBX2rC6rWK9eCHLii CVdA0SuAJZvtjFaoTRfQVU7 xCZuuTOcIG3gEOcwfUEqu5s sz7ZhM7fnqHsndSA7KB0bIA YxOTTlRFjjn0YjdV6fHxunV HNkB7RcKJOZO2NIQCQjEMJB Cm4WBkPSBwCmZyJXWx6hVAp NUywgQUZCXHBhclxwYXJkXG OzOOMGj802ag4pGADpcKEgp iBUbOGtpJ3aFIodYSamJQwm aOCrJKtju5nrYORea0v2pEH sRCGffaOnf7qtMUlwngFnCZ PtzOOqhSLnQQWdh38zUCngl HewxJfqGTJaq1WskZsyq7He OwYzFFuhl0FtD31mtICefYT puVlbXJRvavCiMRKfv05gg4 mhQVAnWeM1aYBpiXU5pQYeu FXnu9HzjErxRCKzd1gzWDZk oq4qlpjxfAHcd1ClrL5ewyg oNJvowDRkohTcGUIed4t9mP TlRSLbSHFyBHbfeRj7KUIqm 999db7yilU4rPSoPFZ6NCht YWJsZSBhcmUgZXZhbHVhdGV fXXFhobPmPQDjslRRaV00ma 5euOM6b1MjGQ4ko4LzwTG3L WNobmljYWwgdGVzdGluZyB3 LOHybCLyYx5nbXPmFVW4EYL fmMlxhdIKcA4xRYHlKWm3QM TsDbCfJwyhhrZOIWDiF5ZqZ BBwzoNszcmdMEH2gB1du2o0 KGsaKc3mMWJpgixfm5dhlcB dnNQvl4XsNGPcexFtj5DrZR IvumEqnXJiCRTcqfSjvk3hx zDnDXEtYBPcW0MsiunpeQyq rnH0VIHaRGEhaSNscOieIMJ jYFg4AErlagRbr3FdQdUyht YuhJSmflTyKP5mLQQaiDQze jJfHQX9CICaZHXBTpCfXEEf n3BcQY7jGPIzgYmhBESfsG2 tb3CpSMHiu21rLRYjLDWTEA EgaGFzIGRldGVybWluZWQgd HgceMPlcGXxNSUsBDCsAB3z ZSMekxOiuPBjg4FqhZPxtxH fg8GqemToIUNoKYN1EdBLyY EhtEGpdSGhvoS6i6CyPSJpg kMejWkwxUIpeFOkdKIeu4Xd pw6tZIYmk7vsqVfoRA6ffEO iZSByZWdhcmRlZCBhcyBpbn Sik4PdS1A9hH8hNCakm9YkD u2qWSSwh0EuhdAqFaMQdTsw JKoyOi5kQMQmdbnzeGDzO4N ydGlmaWVkIHVuZGVyIHRoZS ABaFsthUJjxCWZSTFxdaT7n 3Z2TYtvaXMaolVfKD43AWJe GB7hxALxkOTnq9UoVKh8CWL gB2fMQJ65CRubJMIqwRGbpX fblXBwMMFqXRZikyYqyr2wu SmqcMFjt19opLR8uQQ9EKJx nB7pD2JuYFzrHt5hFMKznkn spSQwwNxfOr4foHWrkM== Gross assessment was [facility] performed at ([facility], code = 2777) Department of Pathology, [address] [place] [address], Technical component [facility] was performed at ([facility], code = 2778) Department of Pathology, [address] [place] [address], Professional component [facility] was performed at ([facility], code = 2779) Department of Pathology, [address] [place] [address], [id number] 15:29:08 Test Item Value Reference Range Interpretation Comments Case Report (test code Surgical Pathology = 104) Report Case: [id number] Authorizing Provider: Logan Russo MD Collected: 06/18/2021 11:41 AM Ordering Location: [facility] Received: 06/19/2021 03:44 PM PERIOPERATIVE SERVICES Pathologist: Tom Paige MD Specimen: Mass, MITRAL VALVE MASS- for MICROBIOLOGY then pls send to Pathology DIAGNOSIS (test code = [id number] 3220) uZzEwMzNcZnRuYmpcdWMxIH tccnRmMVxlcGljOTYwMVxhb pQwPRUsqMYlE8EybzteJKrn EQ1hHB2jrIrmdEFjoVQxEKQ gErUup7gmw890eSHcv6mlIS NVwhhazWt9sVybE92ra2A5G nwqP68dzFErUVR8OHEaHNHy fTAnHSHbRRR7EVXazWVuM6q dUTZsYD9eqgclBKkhVAccHL FprZP6PDZizGQbZ2VtODKdD CqiRMHwtqk4JiFdNs5dzZIy eTcyMFxwYXJkXHBsYWluXGZ zByZwRZ4mRMLWBnKmKJ4QCL JBTCBWQUxWRSwgREVCUklER E2EBqWdHN2ZUDJECSBGUnsd cGFyIEZJQlJJTiwgQUNVVEU dAH9SZIPDCMALE4FXUZDLW3 TZO4JLUYUEZrGkU3WIL2aIH JOBZYqQIj5yrSNsJAFICYSA FOxqB7CAIR9ADGPQJyUGUhH DP3PAS1AMJK0ZA7DTCPGGBj OUYX3YYQ8EOKWMQDNBGyPSF CKZLdLMG9nJK6dfTLpcGQZe Q44HZxDLMLTYM48eZ6mIXVP HUYVVV1XZF9kRQ7wWIFiiJ1 XJZTqBIuAALmVYDBFILU2RI iTWZH6iIQAkzo89BFY7QdFs z4Z4GBB2KWAnNHEqt4owIOQ mbGFuZzEwMzNcZnRuYmpcdW DqYVEiWwNam2lqe461hFSgl 3omYIMbDlS4lLEnQSTuaWCv B228SRSfKOmct6uei8TlDXG naPKkb8T6DESEcljwpAn1lY cgL25oc4E6TtemY3caQXXiH PGjY5QxNH9hXUDaAjh6OQE2 YWV5XBEcJDPyV3IpTS4sGFK pmMVhSUm8s5kgdCxyCJXqEJ G2o9clDFkjxcXpSK2ilw4lx Rp3u9xbndEpMZBsRYFfeTFW PUQoR4YkwKvbHy5gnWq1aQh xNotsARG3Huw5AX3caw55jg l2wClvBCBhrdyhJtG5MJitA DLvzoyyWFm8OPobBYEgaMJ6 OKXvqFLkP9AdSYHbYX5zkxx 0MBW1KFqrAYLxCnB1FNSmvF PxBXSfhIgcAWdck435BRF1F zTzZQ9uN5Sma9L6wS3kgSTr SGKyqNXtEjNcMSLrkr7nyEP eYRcuw0QcZXI5ksB6sDPfyT IhRCQzBhM7XOqwKF4poy25N QEiGFF1rp5vtVRrvSlbwwCt gPNkJErlO6ZfTGGpc569DJC tX1VzGGDik9U8utJjBoJwAT GocCP6zkA0GYOcFG4qeprva 5hqWAxjFIqgJGSquhT5uyM7 LGEovBVwT1RycD8hYMMsTG5 efesic7wyDEP8REmqDQKlDF A8RfMvQBLxe1Jwpvx3IdJjd 2PhjRDiARprQ51zc210NGNc vlQwX2pfmKPzrxkfvPHrmpf bPSzcnvN7QDQiTXcsyytsEU VeTYogS8saNbQlUXBonHuoR Aghw9LpDNZfLQDxKoUwaXZd SKXxNnx6BOBaeZBeOHMdZbQ uE8ihokoiYfYJIIKwv7jxY1 zccSQVhYJyJ7AjRNjpjtEyG MocHIoqEzPfEYXuES92NLY8 RMXmjx39 CPT Code(s) (test code t3gjnTTgJMCxkGH3DsEjFNR = 3357) nf9oqd4HurPHoiHRyQRqmhR PobvAlut05nIF6qY05IV0dN MBbMeK4KURlfeM8Qjf7DJMx QPOheXBiM120s0ovo9eakxY ueSD6fQlzYSSzepgbFiZ9YU daNTAjlmqrAAg0KZznJCYag FC4GNFjkSHgB7VqOYKvGO8k fhk7ILY7BMbyXFQcHjC4SXQ rdFStHWOfiRwkGNbny391OI B2XpNkHHQwiaVlpRcgjY1oP fJtAQG6QXOlNBkqJKaaQJYR S0urKWU6 CLINICAL HISTORY (test o0gmnTTnLYZqgPQ8WhFtXNL code = 3356) zq4ywn2YlcGNvqLJvCMyoaL LvaaKuuq54jAG5wM21XF4hB SPbQmL9ISGbtiK5Fwp3WHXa LPUrgQEnR871f0asd3ubvnC lsVV5aLdeHJUpbxbhBpF7RX lxJPZvjzitQBe2TRdnSKVcf XF3DCQvxVIcH2ImHOLrFV0o cao3EXX7JVzwDILsAyX9SUL irFScZIMoiVdkKGjfr366UD P3ZrTkZFWvmwIzcJcmsP9jX zPmMLHOwwCnH2AoTDb4cJYn cGFyfQ== SPECIMEN SOURCE (test c4yooICaAOHzlWV3NmIpPRO code = 3377) va0xdf0DdiTXcdGWnACkihE PuyjYrww02iJX7vO98OP6sO CDsIwB6RAEwkuS7Htl1TWSj GVXqyRGxI427a8tlq2ulibE enLP6hMhzGDXxulowMmH1ZO jdHNNjfovwDTz9TZgpGAGjx VN2ZXIfkCVmE9FsTAPzVX6p gzc6ZII9HBokMSJpZuV9RJZ zhYEgVJRrwZsuRObmm377EI M3BzRyNTFggoQyoWylnQ9jJ nMyMCBNaXRyYWwgdmFsdmVc cGFyfQ== GROSS DESCRIPTION g6ynbQLxHMNqqZUzBiOgMOA (test code = 3366) xKHPfk7plGBLopYUnKwTbQf NcZnRuYmpcdWMxXGRlZmYwe 4gak044gKZsb3uvSWKfByY6 wSZeNCGlbVEpI471EJIzBLj hd5aro3EfDVBidCCop6C5AB KXvjoapJf0aAroZ35br2L1Z hbhH0vpQOLrUFCgU2FuFW5o VBPdDca9ZCK8ZPB3IKYeAEE eI2TyYF4vLJAxpCYnXFz9h4 zxsSwiVQZkFSO3t2wfOKfdk wFqGW4iff3fmRz4r7iczyIz OYKwERPekFKNAWDzD1BmdYx uAk7qwPf3sZphXcsnRKE6Sd f4XB1fwr86yxx8zRxfYOUlh vtdEeM3GNccWAQmlkbeJXj0 MFxtYXJnbDcyMFxtYXJncjc yMFxtYXJndDcyMFxtYXJnYj kwWIzdLGRnJCJ0FXehg894I BV8KHwpe4ftz2xxfXEmHxf8 WIQtAeZvUnemCHsiq6Udn1y sZYHtjy9nOBH1kFRifEhpe1 M7jACxQXBnnIWjuhHtQWNtK rQ4GZygPE5xsi73RXVnMYX2 hu3zmGHszSuthiHizZGrSUl gW9PnMMPfe924HOAtN2GlUG Tjf2G9lvSjVbWiUSQjqOJ7f uT4WVEkSXw0pFKmgdA4unOw dPAqN0batQ12WaOlmZZdL8Z lnB73LdSqpCSnT7DdaA35Zm BjzMUpC4NoxV47ExXvcKSsP HHdfQSgZt6tkCGoxISmm9Al oEYkSLhnV82bb448JZBwghA oY7wtaXKmiuxnhVBufvlxBR tdaaT1ITWuLGEqDMkyBMYbJ GZzMjBcbGFuZzEwMzNcaGlj wFpgYHfzVuIlPHExRIkaJ7s cZjBcZnMyMCBBLiAgUmVjZW d6INFrfR1jIu7aqJWhtX6ii UVvMWuoDNG4iUHkGXEvMCDh LEGsCU80D0ZpcO8vq1JaNKS zm40kSO5gULVgpWBmIAfaby FsdmUgbWFzcyIgaXMgYSAxL kMeF35bkP4qqRFpW0DsWOT4 IDAuMyBjbSBpbiBkaWFtZXR vkoH5VZ0wjJzcvzF9aGFhlY GgHBmcjFVhGYpsQCN6Bj6hk SSoKKCjrwH6p8LzLHnvGCSv b6DedYXcSIHcEjhuGRWxvTX gMAEcrrXprZskvL2cGvNpAu MyNFxwbGFpblxmMVxmczIwX LzemimiXBVnLRttA7amMzJi TDHdbHylOEftb8VtODLhSGN aImPdHVSqZJDcg0xcOS91AL xwbGFpblxmMFxmczIwXGxhb rbuAAYpIFbtL2vlJtHaLIIb jZvjLZmff4WvILGoMKErEnJ ccGFyfQ== MICROSCOPIC e9qwrBXjYZJigKW6NsJgLRA DESCRIPTION (test code lr7oop4NtcAKqeWAiPFcndD = 3371) PfruVins89sMY0pA24HG4dX YUjClT4ZUNcvsS8Cfl7RQKb LDEkkYNxV802u7jii0gydgB vnXI7uKrkTDQlotxiCqH8XF opHHJvtuiiJKr3SJyiSFLkf HU3OUYgvDMpO5HrJKQdVC6m nkb9JMQ9KNviSICrIfR5XNT vgVXiYJFwdTqhUDqyt411WW Q7MaZrUMWalxAvwQypkU1vK mAwJSMXZXJmi2OzFFWuJXPa cn0= SPECIAL STUDIES (test f3xbpHJlLCXwuAO7DrVtVIP code = 3376) ah1wwp2DupPLjuKBlHNlusL GmhcBurg95xGV2iF23ZR9gQ IRbKdZ3EGSysmG3Flp6UYEx RSRodRJeE655PVDzUMSksVn ipau1gI03FFKpuE7skFSwCL csdrFlQVvtnkKogqAoQah1I JO1fCwsVRInrmwcTlQ1DYwk CLPmsorsETp0XKvjNXRwlIM 1VTPlkNZiM8OiLOXiHY6dek d6VOJ3QGkoJPUsIrW5TZGxc MIhPHOvfObyLBnwr606MJF5 BrNfDPWcpfWuhZlfoQ3pPkF cZnMyMlxjZjEgVGhlIGludG ZuySGncUI9gM8gHX8gDBXrf FInV0SbSPYscgAqmDUfWIL9 vJDzoLJiTW8fWArziHBev5c tb4HmX2nkkBiauJV6HT0dKQ WbHGMvCKezq0KndZ3cKhwwZ HCiB6HgPZHBZ3TMEGTfJZLC Ak9ACqIMGoDlKzGWQj5dSGd NUywgQUZCXHBhclxwYXJkXG EjRGHBc011bm9gBNQdnHJdg qAKoFTlxH4nDHliLFyyFLlf jKMyJEkvm1frARLpw0a5kTH tYOGwmuAcd3ezHAbultWyHK SzyEQnnGMyPFIwo54uXCngf HhnpRshRBVlo1EjbRhca1Vw PdIbJSesc2UbI00ijXKgsJL kjGebJBAjejAzFNAck19on3 szGUZsFhX9pMUzmXG1rKRys COmu9WtnWrvFVLgs5crKOSa jr7tlkrqsCTje0SnsT5arhz aDPwtbNEeiyPwOVFrw3m2wX QwGDMiYUIpWJafiEe3RRIgd 821ss1tcmX1hESrWGW6BFxk YWJsZSBhcmUgZXZhbHVhdGV xTFDtflZwMFDdpcAFzU35xw 2adPJ4a7UvGA6od4SzfAR7Q WNobmljYWwgdGVzdGluZyB3 ABNbzYXoAv6iuGSkEFO8MUU niZgwnxSYvB0hDWApEOf9MV EiTvMwTdbceuMMTBVpM6IuQ TNbtpUatvnjSVB0fL9hv7k3 MObpNq3sKCTwbxfuc3znrwI wjGZuc1VeIPJwchGfp0SaAJ DmiyMvlXArSLDpsaXwmg6jb mXxHSAlEVCeL8BcgxotuHsq obO1FPFuRRAdaOCfzQpkUFW tVNb5XEgejjOzl8UvDwIggg RvxCQhiwHvXW9iLHNfvRAzm rTjXVP1ENFrMOKPTdEkYEXr y8JyIB3eMCDvkJnrKKUpdI4 yb1KkISVnv03nVWGbWLIKJK EgaGFzIGRldGVybWluZWQgd NygrNRovUOmDODqJVPnGC0e BWTgosXknGPaz6OduCXmmrO mt8IwlyGhWYVmNCV0SkWPmA TlkHSbcHJcdtQ0w9WiCMUvl pQprQrebHExmQUbbUSex7Yt dq1cGHRvu3ydiJkhDR7yxSQ iZSByZWdhcmRlZCBhcyBpbn Imj9PzY5O2dL2ePPnwj1MhX q7dPXOko4VriqRsDiXOyPtv RDjzIc1iOUPufrvtqYBiD7F ydGlmaWVkIHVuZGVyIHRoZS LQmMxqsGRmxHZGCTTuslW8j 0X2EZybmJXdhqCrGO12DCXd WK4iaOAgpJKor7IxCUd6PRY qB6bLQU61RExrIAIfjDAncX oogCShHOItCSJtyiUddh9jh DbfvHQlu44mtQL3mLP2BNZa cZ2yN2WqBFsvAl0wRICfdvy bcUFcxSesGg1jhHJvkQ== Gross assessment was [facility] performed at ([facility], code = 2777) Department of Pathology, [address] [place] [address], Technical component [facility] was performed at ([facility], code = 2778) Department of Pathology, [address] [place], [place] [id number], Professional component [facility] was performed at ([facility], code = 2779) Department of Pathology, [address] [place], [place] [id number], [facility] [id number] 15:29:08 Test Item Value Reference Range Interpretation Comments Case Report (test code Surgical Pathology = 104) Report Case: [id number] Authorizing Provider: Logan Russo MD Collected: 06/18/2021 11:41 AM [facility]ing Location[facility] Received: 06/19/2021 03:44 PM PERIOPERATIVE SERVICES Pathologist: Tom Paige MD Specimen: Mass, MITRAL VALVE MASS- for MICROBIOLOGY then pls send to Pathology DIAGNOSIS (test code = [id number] 3220) uZzEwMzNcZnRuYmpcdWMxIH tccnRmMVxlcGljOTYwMVxhb lEwFJLxfCNoY4FngukjCKgx GZ2kRF8orZbgdHWtpUOsBWI oSpTsh8iei326fXUzx6imDQ VLjkqpkIa6cDqsC35wk4Q2Z sjyF25gdRMeJLH6RGMuHBYt dSQpPMCrPTJ0KOVguONxD0t oXETmCN2oygklBGotCZkjDJ MboGA9TNMpaNVpL3LlZYWlZ NpsJKZnjmp4JlNiQi5waOWi eTcyMFxwYXJkXHBsYWluXGZ bCbYyDT5aSLJLNfRxYU2KTY JBTCBWQUxWRSwgREVCUklER Y5OGjSnIL6BPVDHNEEVFnhr cGFyIEZJQlJJTiwgQUNVVEU bPT5IVPUUBXTFW8SXQSUGG9 HOU8JJHKONBjItM1PDR7kDI ZPILZpCUd1usWWpOQOCTLWB YYolU6ICNM2IXVRCDvCRGeO HU2RBF4NRWE6MW3YRDYLMAl XDRZ5DWX9QIBYKHSWOTuOLP MDNWkOJR1oGK2vsARouARUm E48LQiHNERCDH42rC4cZHFJ FPHHHY5ZIV0cWN8iUQJzhG4 YKUWyIMkKMRhTOJZLUWM0XG xYPRC6fYNIdak77RCT1JdFk d1T4FBX7BTPdEUUms8blXJH mbGFuZzEwMzNcZnRuYmpcdW WcTMDnKmAvm5rqf770aOEzo 7waFSYwSkY7cDIzDFDsdJXd H865EJXwUYqqe8plg0EoBHV nlSJrq3U4HKUQmfrfpFa7uI raW91nx8C7HlubD9kmLYCxT MNxF3FpKR1zODVkFzq2DHG8 NNP1AMKnOJCuN1LiQX1mBJI unLYyUPx5h9oieGayOSOzJT N9m2qeAPedfdTdBK1lwx8ry Vx2q2rdhdBtFNHhHRPaeAEQ RCBiP9KpvTvlIu1ogHj6kIv sFrzmBYE8Qhn4TQ3dxt90pt d7gKmhVKXqoqzkDoV4IInzC OSrkljqAUi5ICmgTPRsxHC0 LZWjqXDvQ6EtBZYqPF8adgo 4MOS7CNbmDHZyYmI2CJLxwK NeMCOziIvjBYkvu593ICC4Q rWtHA9cB8Ims2B3nN9teKGd MJNniDAyNpXfBNPrwj5vrZN jJHfde0RwVCN6eeZ0jNVgqD XbYCKwXqU2QXwpHR3pwn47G GKdFSD9id4afKGcdExtlhTz eBEsYWiaX1WdUSGzu057KTW eG4KnRFKxb0T7rmSuNwKoPN MwnCZ5ojQ5WIBxUF5pentfy 4fgPKtpHZahFEKmocF9elZ8 RTCyqRUiN5SgdF4mXYLdWR8 yuteoa0xpBXD7ZGpuOYGiCZ H4RdLkEWRny3Xmjoo3QwSbx 2ArnVClDGztQ37ci681YUKe iwHsI4xmkHUfepxrwNGpxzj nSDmzutG4ABNwWGmofpfwLM QcBSvkU0gtGoYzSPDmvJzkD Jobf3ClVWNwEGVeSbIiuMRo UPOeRmk0FAQgnQYgFUNjWyA tF3psceglYkPKPHAsw7ekM4 lhiJEIxHLpI3EaUHfxgdSxD YoxTXswWiOzAIUdMN23VUH7 WQBvsg73 CPT Code(s) (test code f3fuaHAaMEFyeRW5PhPwBIZ = 3357) wf2utm8NddMPxeNWmCQczcY PdysCwgo36bRB8bA36KE3lK NCdWsP4EHGiooZ7Dzl0EUIe VRPfeIExV487k3mki1ueshI chCE8xEfmEVDhmnneLfG0QW ntUAUmndrpEHr0YZgjXUIzl JK9SFLfzWDoD4VjKBSzLU2f ivu1LUL1IRieMKJiOcL1NYP vbTGfYZSmcVlqKWyrz888PQ Q4WcAzYGHvhmTrvWdnzX8cV lTnJXQ4HXDkOPtdUHiiHVOT V7adCPW4 CLINICAL HISTORY (test i3onmYTgCMAokGL3VgCsJPG code = 3356) sl4oly2BrqACfsNFvJTbunU SgprRnyr31hHE1eV55OL0zW JCpYdI2NLUzxdY4Vgm9UHSq ZRFbyYRkC955g2ymq0oivvH ezOM0tFupNMIwhxzuZyO0ZM kyKWTfkcpaKUx2TYrnROAmz AW3TKIdzNIcX1BqOBArGQ3l hfv2ZLT6WMulMBHmRtE6ZGW nmSTpGQJwnVjpKIumv965EU R8QaZiWAEameGcmVqrrQ5pO vVnTAQLnfXcC2TsVXt4qOWz cGFyfQ== SPECIMEN SOURCE (test b3bmvZNuMNYezPQ6DlEqYXU code = 3377) od2ner9ZeeWAthKVjDBpspE RslmJckx77hEB9uN40YJ9fA AVnFfB6UGFhqeW6Byx9CKMy YCLdxYMvF016y8ond8btciO qbGZ9lQqeALEdwfhrPlI8EB jvLUMxuwwkCMj9PBhoPYDxy JQ3UCSsbEFuD2SdONUzOM5o ejt8BJY2THlqRNGoVlI0VGE ahLVwATQjaHfuQWasu911QP E9AcRwOPFuwcDouRzwyO9rW nMyMCBNaXRyYWwgdmFsdmVc cGFyfQ== GROSS DESCRIPTION f7xkcAVvBSOlfWBtAwEfJVR (test code = 3366) wZFHst5bdSNPghDGhDtOvWw NcZnRuYmpcdWMxXGRlZmYwe 2kmm734bVOrc4wlMUUmJdC6 nIJvPKDjyRUaN351LULwKMg og0wsg3PnPCBrlCAzw3N5IW TMfjqjpYt9sCgqR46iz1J4Z pnqL4frZPCgPJWwR9XmEA1k WILwJbz0BCU4WIC7VIRiDWV eI0CoQC1pLKWpcTOpTMr5k3 ixrDyeAHStJAF9t2qaKCqoo kPiSA8qyq4zjWc7v8fsdsOk KFXlLEUvtVWTAJQvM0LvbNw fTm6jfXg7yMizVdpdTHS6Af d8PG9cxq54qmz8kBkzQKHwd khoFnT3VAejBHMkkgztXVe0 MFxtYXJnbDcyMFxtYXJncjc yMFxtYXJndDcyMFxtYXJnYj tjHEikIAFbMHM1GQusb219H LZ3KZtzm2xti8kshCVeBvn9 YHJuBdRvYtewCNhvv5Yph8l pBSHqvv2aOAE8bHIjcHbrp5 F8xZKmBWAblDCgirTbVPLzZ tE8PBmoVG2cmu92JAXvWON2 bg8nkXKftCqjdqKatDTgAAk yM7MvMJPmd969IXNeW7RnPI Wkq2D2agKsWoQhKOSpqDC1d fQ5CNEbLHk7yGSbcjA9bjZc fDOlO5tlzC56DcCfzGTfT7S ppU08NuEeuQXmK7XsqJ19Bb HdlWCmD5XtuJ56WuDtgWBqY BSdcGOuBu7acSMfqKJkk6Qj gHGbERmsT03od916MPAwlcZ yG0xwdRYggqvxcPSrdmowGV lwkqH9TKUfQFVnRFueFLHvZ GZzMjBcbGFuZzEwMzNcaGlj mBawXOgoJcJvYLGkPFfbN4v cZjBcZnMyMCBBLiAgUmVjZW o2OYOtbJ4eOf2saUGnsE6jb IIdCUbmQXY8gBAbEVMqCDBp PCUaBX74W6ZtpE9nr4MzNYM tb55aKL6vBOGwdLOeHEntxx FsdmUgbWFzcyIgaXMgYSAxL wTdB75gsN7jxLQkO2LuCAC1 IDAuMyBjbSBpbiBkaWFtZXR szxC2DL4idFwwvqQ3tIDnwX PtDGkbzCMhPVdpLJG7Lm1vy HKgIQYbmzX0h8UcOPhvZUTt i1GqdSEnBEFgGtviLWJvkOF fRPXdtvDuyMileP5zBeXvRb MyNFxwbGFpblxmMVxmczIwX VeawoeuULBeVVchC5muTiHd QVPzkXreNWyea3EkDGTlDMV oOyVrJKTxZWHje3egNL21XU xwbGFpblxmMFxmczIwXGxhb gijFTPkJAyaD4ieAtGeMUOj jNaeAGppa1YuUUYqJGKgXtX ccGFyfQ== MICROSCOPIC a8nbhSNtAMVokQJ4GkFgGQM DESCRIPTION (test code do2cmc6OvqAYvyYNyWCnceA = 3371) HciiPobb84eBQ1rH54IL4fI DKyAzX1YHZusdU5Eex7CSMj XOPuqQSoK266c4ewh2efwcZ eeRY6jNgmBJXpcbzuEuW3QG yuJQBgbnoxXOx7FUlwBKVzs BB4PMJxcNLdD4UbTZToDP1f tgt2ILB8XAmtLAIwKoN1QMK qmIRqOCLcgCclVZywb967IG G9QqRaDVStxnPmtEzzkM2bE kDcIGMXXIVvf8VmVKAwTTDd cn0= SPECIAL STUDIES (test c8qrsKBaIEUqfRX9PfCoRQT code = 3376) lq4orc6VycNTxxAOoBCpqxZ GbutUoms35gTZ1bC51PZ4rF YKbWgV2IOUzetS1Cjo7IVMa MLCrwNScG699AHDcMFFarBq hyif3wN36UPGhvH4lwMZkRM ncfpDlQDtivtMqifRsMhc8Y XM9eChfCLAmhlcfUcU2EAcv EWWmwcqsCVm7RUeiGTMjkTM 8LXOezBHgU7DbTNBuCW6zlv f5UDV8TPdoGAApEtV9PXLnh YKjVFMksOaiIDegg680KHX6 JlLnBOOpquWazDyljL0tKkS cZnMyMlxjZjEgVGhlIGludG FxbZQubXU2jK7dRT2dNRHsg HVjQ2UxCGJvheJfcXOoAZF3 oJAuwDBcFW5eLSfzdQUlp2p ry3GdU4xcpRebfZZ4JE5fEJ WdGCBgUMbgz2GspF0sDrjgA XGpY4HfSZAFK3FLFNQlSMUU Rg3XIvJBAuNkVkFOZt5wGXt NUywgQUZCXHBhclxwYXJkXG XtNCDSt596gu4jUJVjiPRkc hFJvFMbkM8lOObxTCdwALbn rFTqWMksj4axWUKej2l8gRN oFSIxomZbp0vyIGmhhvIfWV SjyFXsiIQdSFMoq37qHGqoi VigcMiyUUCrq6LvsFazy4Jm MmKyULwms4LpR92rrQVoxBT ysFsvZTAbmiCtWKTxp72dd1 yyEZJmLtK9dGFvcIB1rKNdt DDwe5JzmWhyJTOoj6rmVXXi cg7xhuvreUPvh1SzsB4qlew vSAowbZLynwZxWWYrs4b9pX KoTLKkKLVbWSlsuMt7XPSrd 263bk6zjhK6vYBqNGZ9DBgn YWJsZSBhcmUgZXZhbHVhdGV ePPAyfvCgZLGpgbWKcI05yp 4ryXL6v9YbTO8ez7ZrfBZ6B WNobmljYWwgdGVzdGluZyB3 ODJxtFNoOx8qpNEaJTQ1STM rwIkutjQYfV0dSXOtSAi1SX QxZaSwZriswyWNVDLjB1MpE JMssuQxzogvLEK3cQ8ta9l7 LBivIg9gKWHjvzvmx6uycuK caLYhc3UtIMLpdzGue2OkEG JkcbXpbUMuSUSgzpDcbg1st oLrKTJcKFUoV0WdrarfnMuk ggR1XMGvAUDsxKHosRvvZXP cVFs0UPbprwTul0BlFoJgkl HmbJSztrObJH2yNSQajWNyp xWgUHV2PZZwRRWUBiIdLBVj o2HwSS2nTBTmoWojHTXwpB6 by3EgCNQkx04dIRAwXHVZGP EgaGFzIGRldGVybWluZWQgd MaygRVluUWmJMJfUYAsGJ4z NSYvzwNowSEsl8RpvGUdauJ ng5WgzrVjBQSsFLI7OaERpN OswSHrqOYostV3p0NmEKDvn cQtdTccdIOshRWcqFJud9Op vg7eFSZnf3uvuZpxPJ4ddRJ iZSByZWdhcmRlZCBhcyBpbn Avf9GxF5W1iO5tJHtzg2WyB v1dKHXui8JhtyVqZbGJdDyp PWmbQi4pUNFniszfwLEcR8M ydGlmaWVkIHVuZGVyIHRoZS JBvQwiyMBmiXMGCDHkcfP8d 3T8VPskqJXcuxDnIY37UMMv YR8cvONynSTvh5PfWPe7LJK mU3rMHT10AEqsYOTouQLgsG lncSCtGHFwTWAbjcFxxl6rw EdreSFpv68ccBK0dWN3UHMx xZ3hH8MrPGriFv2qPLZptnz qpZGegMbmMc1jkUBnrN== Gross assessment was [facility] performed at ([facility], code = 2777) Department of Pathology, [address] [place] [id number], Technical component [facility] was performed at ([facility], code = 2778) Department of Pathology, [address] [place] [address], Professional component [facility] was performed at ([facility], code = 2779) Department of Pathology, [address] [place] [id number], [facility] [id number] 15:29:08 Test Item Value Reference Range Interpretation Comments Case Report (test code Surgical Pathology = 104) Report Case: [id number] Authorizing Provider: Logan Russo MD Collected: 06/18/2021 11:41 AM Ordering Location: [facility] Received: 06/19/2021 03:44 PM PERIOPERATIVE SERVICES Pathologist: Tom Paige MD Specimen: Mass, MITRAL VALVE MASS- for MICROBIOLOGY then pls send to Pathology DIAGNOSIS (test code = [id number] 3220) uZzEwMzNcZnRuYmpcdWMxIH tccnRmMVxlcGljOTYwMVxhb hJjXOHjqVShH2QqfpokLAee MB2yXG7nwTwjwXSzkOBsZKB wClKhm1gts403sPKpr7gsSI WXxqiwwYs3xJqwR87yc7W3D otxI46tpEZhXYR8BPCbRVSx yXVrHDAdYJU2YBLoqRLjC1a bUFAfSN1azrcrKSigFFmoNI TcfOL3JYZotSXjD0IxLOAwR LefQDHpkxa7CuXdJl3ghWHn eTcyMFxwYXJkXHBsYWluXGZ rNoWqOZ5lUCOKLgQdMC9JQE JBTCBWQUxWRSwgREVCUklER G5RIuDsWQ8ZQHNIPWYMTvre cGFyIEZJQlJJTiwgQUNVVEU hEH8HSZAQOUXVW2MODHULL7 TYP1RRBERBFnTlK8EPG8dGI PGCOWnAZc4gaFCaXXLLMIKH AFgpJ1UYCQ1ISLXXKeIBHuJ EY6NDH6MQKP3LK9GLAIZRGy XDUC8IGK0KPSQNKYPPEtDFZ LRHZlMUI4iJF6cpNNcrOWZl G33KLtNIOBVMT78fJ0iUPJP AKBEEM8AFM9mQI5eKZJfkD1 ZFISjAGiGYHbKLETXQHM3TR sSWKL7zDXWqte57TZR0TrAy z1B8NXX3NFUjAFDwl0fbDLI mbGFuZzEwMzNcZnRuYmpcdW OkHPQeOpCun3lkq735kLJim 4jsWFIvUoV8sPVaMYYhfKDq Q900WEIiOUjki8agv1NsVEE pzOFde6H9BYXWdubfwYd6aA aaH33ry5M0IzswP6dqVKUwH BHsK0CgJV8kIROhAdj8OOH5 RPI0DIXpKSNdU2RtIQ8uVIP ahIJdHOn0s9bqfQdhLCZuMO X4e0tbXTyyclHuCU5uvu5tu Mp1b0mjgbDwVOLaFYTtnVCG GTAdZ0UieJeiRl4xrKt2aWg nYabdRRM1Tjr8WJ8kqw43bd i1eEhfLCHmvpjbYxI5NMolZ FXgertwIGs1UZymAKYcsBE5 LBWbhMKpD3HsFOBuGI8vmaw 1XOO8DFojECGwJqW4JSPflC TiQCBcdHsaXPdxk701UMA3B sDeNV6mK2Lfu1W2jX6grOMu VQAdnLSdHpOxYUDwal4faBM pTGxsf2FbRGN2yaU1aXHfgN ZhDEQjIlV0OIxtXJ9klz40M RWoCOS6gf7ziCOrkZfxbpCk mXJkYFfsI2HtVRHsn481ABF zH0XvOWEhg5Y9zsUpGvNvBC GhmWD6jhM5KJHbFL5qpgwcc 0goDEyhDTekADXhcgO5nlM6 VVCmwGDrY2AumQ1zEUZaMS7 zhovli0trVVZ8FXooFEKnIR S2MyXcNZCan0Ehitr9SvYzp 6HjmDRnAYurJ59bf679SHRm pcTtX4snjJZootyhhKRhotz nRFwfghW4WRKqYIbkvzleLH AqVXrtV5nnXhDrIMCwfHoeE Aamb3KeBBRaIYSeKmUovRCs KUWmOfa5UJWhgTLbEVHtUcU mQ0qplrysBuXXNMSlu6icK0 ssjVENhCIqZ2PlSQwupjRxE SviDQxsIdLjCSHlDF51PAE4 DNFjod10 CPT Code(s) (test code a8nusHKvKWYjrCZ2EuVzDKM = 3357) wa3iar7RmzAZbeKRcPPiniU VfxsVsje62dUE0aJ16OL8jA QGzAuW4YJEmmvD9Knf5ROSw UXCoyDChM842w9bba7lhguG gtGN4iEtlHZFytlbhVdY5UF btSZHrroqfZCh3TNmuKCXhj MA5KYTspHQoB7JrUKUoMM7a rrn1UUQ9HBuqSOLnGiX2ZCX acRZuYFXkkDbiLTqtq252TR Q6SoQnUKJptnJbcJgbeN4qY fAuDCN0TEGyAYxiBErcPJTG G1lpRKE5 CLINICAL HISTORY (test m5jrxPIyAINavFA3NsQmEDM code = 3356) zt0xih6EivUPtwQAxLDsadG AqniVpdn95nFK9yD63HR2qC SQdTvE2MPOcehX8Zwy3IKXb CIGgkJDfB631b3mwp3rgcvL rmHD6bTnpXOZjmmirWvR1XG dhICFblvscWGk8MHdwGBAoc ZU8ECBzfMDlL3OzUGXpXO0j apt5TER2XVdlBHOuFqV2LSU mbASmXQZsgIpaDYfll856CS F4UbYzYXZxuaPboNheoE3mU mEnDWITeqOmJ2VaNGp8yQVh cGFyfQ== SPECIMEN SOURCE (test b4nskKAoDKQznYQ1LiLxHHC code = 3377) fp5fsr5QgeCInvGQiFRgwiH BddrMmgy75nZE4cU83KG7dZ MSxOiN9YDAeutB8Gkr4LWWu LDRnuOSrU330v8gin0lcalT waGR6tIfcCGSvhurqWhW7MM bwTKGrcbwsOIc3CIclSGGqo DL1WMRxpPQcS4PsZHQoMS7e gdu3SXP9RDkgHDQzKhE2NEY qiRXzGQZuiHmaZYgbq592PR B5RhYnESVqcmWjtWdeuC1iJ nMyMCBNaXRyYWwgdmFsdmVc cGFyfQ== GROSS DESCRIPTION s9uspYKmDVOeiXZdBuYmWWF (test code = 3366) eMASez3spXGNsxDWxZjRdYs NcZnRuYmpcdWMxXGRlZmYwe 9eyo684tNZob4buDTQiGzZ0 lJCpLWYqpHGpJ827VDPgGZe bd6tgf9SkKUEjzWTrg2P4QT CFqlmduYm0xCpuI39wd1H1Q hllO0ovJHAjIEMxJ0BbBO1z CNNbQwe5MTO2XTM3OXYpMII xN3FtYX3gTPIobXVrFNa1y7 gorGinKWHvGVQ2v4zsYIopv tAgMO3vxv3lpJg2h1xnfjOk IXVwANUjtJLYPUWtD5VvyRk cRv7hvZr2aWnbBlqpCGF7Hd d0OP6ygd10hsz8tKpyVBOol uhsYyE5YOqwQYRbizktNUi8 MFxtYXJnbDcyMFxtYXJncjc yMFxtYXJndDcyMFxtYXJnYj cuNDxgEGJiKRR7RQiuc172O SN1RYefi8eek4czaITqEoj2 MIXlLqVtZnbyQLufc6Oea3a uBNFtgw1jCBD8nCCesHejr2 G7dQCqSZMtpJNuikXgKDWmK aI7IGiwRD7rgx38BZOjFCH0 ej2uvIJooWyvjxUxwUUaHFm qP8SrLXSto650ZFHtN1UvWS Yfb5K9xcOpXxEaETKenPQ8r hS8LMYqPKe0xWZaovP7wqSv yTAaG2uefR30NlEmxBEzS3K tkB69AtFprPGrZ7LclM20Sf ZndMQrW1FyeE73ZhYbdEFaP IVcaWKiTt2etEUdcTGnm0Pd oOZiWEqyS00ae328DQBrseL dJ5zzcFQiokupiDLvkoytPQ pfhcT3TWQxWLWbSUfoRMJcY GZzMjBcbGFuZzEwMzNcaGlj lVquLSlxTbJbMCTyKAkyI2i cZjBcZnMyMCBBLiAgUmVjZW d5CMDljF9nPg5tsAPcrP1lf XHyECuwQGX1xLLtKIKaUOMc BRGpUY40S5FolE5xl2UmGFN ko79xEC6cHAXolDSyNArxmx FsdmUgbWFzcyIgaXMgYSAxL pVjD90zpQ6qrTOqD5HzYFM0 IDAuMyBjbSBpbiBkaWFtZXR mylJ3JA2xjVulcsD9oNVkvA ExQZsvpPWkLSthKWO2Tg9vv FBrFBVldrM4f8KxULyhVCWo u7XwuJMmWMBuNfaaBNRdxFY lQMHrrcOroHixyM6qYeZwMt MyNFxwbGFpblxmMVxmczIwX SlgjfpzISSlHUopC0haYyMj YAPhgFdyNQdpl0LcDVGvFFS cLtNgUEQtJKUyk8ywFV31PD xwbGFpblxmMFxmczIwXGxhb wfwSJQiUPbhW3jeYhXaZOLl lBynGWuta3RwKLKrNVRiJwT ccGFyfQ== MICROSCOPIC d2qspMWfEINdwBG2AhLtYXZ DESCRIPTION (test code ou6zbv5JcvJQawQGhTApiaQ = 3371) ZgtbXmhe86iZB1xK24UJ7pU RMgRrD5TREaxcH5Xjx0QMSt MZRqvOKqS883g0obs7niijW qwMM3lIlvFKMdjiynFwI2ZV udWQBpyazxDUr3VChlYVTtq JD8HAVhnUEiN8GyZYUrWX5s mma6WVF3KPbmSCLtGfA3XWZ vjPTcMRQpvCqkZLqey421IR Z2VrCsYVQivtNvxZtqxI7fJ xBvBMBHYPKbr4BsNLTtIAMc cn0= SPECIAL STUDIES (test b7ihjSCsQYEkeBI0KeFgRZJ code = 3376) le4lnv5FicQQxjGKkQKuxwV IwboLhyu75mPZ6nV58IA6iU BMwRpN9IJKjkzA8Ipx6RBNl PPKuwRTtE944AZWoIQJarAn bgly2wR01MRZywP4vdIJwOE tvkiTvLPwebqAsoyBfNhj8T WW4aLlrWCIevaecFsM4NYnf UODccxwvEVl4IHcjCWYqzUM 2HHPadNJkY1NmPKCvAW2qtm i2JRT9NMmuJYSoXdW4ZMBng ZQlJMOmuBpiNEgvt832IXR0 QqKwTDYwavDgpLdssX1hFoB cZnMyMlxjZjEgVGhlIGludG PxeXAdcTN3lO7nVL1iMFLmt GXjE8UcNMFdyqPzhYYfAJB6 tXRypRYiGE4rWEpyhBQhe7w vn8NrH1cwsGgrwEZ5RM6gXT WvOEXgVNmzq9JfaV9pDlxqI PKdV8IqTBIMH2RDOVWfGKIK We7KDhLMIpYnQoLPXf5pTKy NUywgQUZCXHBhclxwYXJkXG PoAQIRp843eh6tZEHhgSMtt jRWqUUhoQ0dYEerLYojFTia lYHwLNpmt2qfUUZfh1q0jVB hIRYuddQkp5sxSHfhvjMkXG WqtMLyiHHbYDQon40zKIaoi QfesYozEHKfy6FalUcmg5Rt MpWgJXacf7LnU44hnBUhiBH jzQckEVGxllNtMSTal26ey1 nlWRNkKiC0cLKesNV2wYJhj BPkr7RefWpjHGZzt3mwXLFj zo7royusxCFaf0GugX4dhms xKYqsmGMstiPmJLWob5z4pL DwTOVdQREhNArfpCe0LMNtl 010bs4ratG1bUOgLNH8JSgh YWJsZSBhcmUgZXZhbHVhdGV xTDKlsqBuTCKhmqIVdG16pg 3imFS7v0MxAO3vp2ZlxXR5I WNobmljYWwgdGVzdGluZyB3 YUOvzFDvCb6lqKFsUXO1OES bmNmxhkMYsP5xMVDyRNr0OX NzPxSaWtebroUHKJNiV1NeW BWxawQgionwJEK7mS2mk7j0 EVwgDe2bQCYollmwl3cmozF irXYgb7HoBRLoyzHqp5PaOX GszvLdhOCbELVnyeIkpi7yd cMeCBObOFGjI1IzuuzlnTuo fdQ0FTNqTTJxlMCnpLvuFYS dRWv3RGwavnXak3QtFrGhnr SorFQuphWhFF4vRQRmeHEoo qNwRBS3NYNpCHJNJtCgGWPv t1PcIC6uLEZajYvsDTPuiS7 ts3BbPRPwm20kSEJxDABZDP EgaGFzIGRldGVybWluZWQgd WuzbRPqcMKrEPCoKUTlTQ4b DUVqfiPqfAFwt5TsgYVprxQ lr6BhdyTvVQEvFUH2VjBTtI PevJUogEAwopR3i2PwTVPoa gIkmIkmeCHfpRKxqWZhl6Qh rg9aDMEeu7lygSaiRK4pzKW iZSByZWdhcmRlZCBhcyBpbn Aso4NvM6Y1gR1uMZhut5CsF o0hKDKme5UcliYmOrLLlOyu CDzzHk2pIXChefajiSJmF5A ydGlmaWVkIHVuZGVyIHRoZS XTtGeapPMkwHSXQUZxlxJ4d 4G1CRpwmESyefLsJY35YPNt CU1fyZTgjBDpm2DiGQx4WLF hJ7gTCM24GOdkUNQokOKwkN qagCKbLMTzNBZtkqSifl0mf IgzkJZmo69iuQV7kDZ1BJTp oE5iB4WeTEalQo0mNHCzcex xhDNgeYfuBx7ptCNdrE== Gross assessment was [facility] performed at ([facility], code = 2777) Department of Pathology, [address] [place] [address], Technical component [facility] was performed at ([facility], code = 2778) Department of Pathology, [address] [place] [address], Professional component [facility] was performed at ([facility], code = 2779) Department of Pathology, [address] [place] [address], [facility] [id number] 15:29:08 Test Item Value Reference Range Interpretation Comments Case Report (test code Surgical Pathology = 104) Report Case: [id number] Authorizing Provider: Logan Russo MD Collected: 06/18/2021 11:41 AM Ordering Location: [facility] Received: 06/19/2021 03:44 PM PERIOPERATIVE SERVICES Pathologist: Tom Paige MD Specimen: Mass, MITRAL VALVE MASS- for MICROBIOLOGY then pls send to Pathology DIAGNOSIS (test code = [id number] 3220) uZzEwMzNcZnRuYmpcdWMxIH tccnRmMVxlcGljOTYwMVxhb lIsIFYkbNNgW0FuhchrHMem ZE8xQE7rgOmvpFWdnPHzDZJ uLkJom5oel249oVGdt4raRO FNftqhaMv1aNenT69xr1L3B fyyA89vvOOcQYP4WSXtBODc xRKzEZPtHHZ1DURazFDcA5m aZYNmIW1obvypIIftATkuNJ RmmRE3VMIryPKiJ2UuWNRxT LnxXZEuhig8LxRyZo4yhYMa eTcyMFxwYXJkXHBsYWluXGZ uRoBvVH8kVZAXOdZoSB3VFC JBTCBWQUxWRSwgREVCUklER L8TKsYkWB4NTLQSAZDLOhtx cGFyIEZJQlJJTiwgQUNVVEU pHL1DRECWOBVXY4NXJZCNH0 FSX5AXTJEJIeMxY4HAM0zIS RNPWKvLJg8rhKJpEAMVRFRL VIqbP8RYEI5YRDXKIhJJAkT DD2GNM7APOD1OT2FTKBOYAh VDLY1QLZ0PEJISJPBNPdFUV YADUsAZL7tQV2goTCbpOAYy E94VHsRDFRREE44bM4lAVKC JUSEZF0SBU6nEX8vHUIpjX5 YRUWiWUtLSQrCLVQDWSC2TA lCEHV9hYVOnke47YFZ5CpWg i5J3UPY4MRGlJPTmk1hoDLO mbGFuZzEwMzNcZnRuYmpcdW KbFQYwMmIgt2rhd306qZDmo 4nyPKVxAaN9zOXwGEJrlZEl B307ZJSuBSqov2nky5RxGSP bfESda5C8JPGMtvlrvTm7vY qqG66jp0U8MtvhF9ckEBXbY ZTrR0XdVU7uFWDdSbg5VYJ0 PUL3NZQsNENuK6HfLF2tMBX eqRGhINo2s4tmlYqwZYFeET G1k1jeLZxghwLvSG2yar0ap Rr8k2qielJdZPLiQCMhlSOH ZFRuN3JvkUkoOh5ihJw1gTq bEmicGHB7Gjp9LW2dkk77os d2eGcjIBYykljpTlG2DUqmC UHeobamZLi3IPveELQgyNR8 UIUtaNHuF2ByDKGmYK5avdi 0YBV6XEifAPOeZqK2GIKgqJ YcRWJqcOvzMKnmq055JMB8S hOuEM0dZ6Llc2Z7eW2reTDh JDGqlQOdItFbBPEkit7lbSE kFOvah8FhNUV7rzR9uCFspJ HdHTSgAuA0ZUbsPA0svj04Q RMhYYK5hm5znTMjmPzhjqZh oETgRFkwM0ClVLIyt803ZCE qM8VcGLEnx9X1hjOqOhDqZH SntRQ4emA0GQZoVJ8ovcktm 2faODcgNAqeHZBkctD5luE1 VLCajGKiC9GneB6bDPDwMD1 gzbnjx4unBCB9WOpmDQSxWV Q1AdEqALIcd4Sojba8SuRcz 9JfcUIlIZbvL91nh691FKHw ysNmN6xiqEVukfkkpHHngiw zCYmhovR6SJWrHEmpxfdlSZ NaSGbmY8qhFiPzAQEisFboD Roia9EfTSHbTXBuBuChhWKv PKHsJjt7UQPepTYiMAStJyP mJ2jrnlirQzSWCOHrv7eoD7 lhlHXMxZJgT3WgWKptlbYyU DihENpaRwLhCPTwLI54CYR9 YRPqhx74 CPT Code(s) (test code r1bfcETcOGZarJM9RxAlKWK = 3357) vv3waz4GjtLEbdRNkHUsbpY OoyxZsdx77wVH9hF12IW5gW XWoXfW9ZECuxwC8Jwr5UNZu AISvhGViG360f1kuy0ogleB puFT2hKjgSZZjvnnkAhV1GO yrJRRqddtfREp4KMtdGWOlg VP0CGKigCIfR1XuWOHfZT5h ahi7OWY2BWazILNpQqY6IRY uhMJiHMYrdSmxKOlwz460HD Y5KbZyKOWykgEaaHwhaO0pD gQrSEF1JARaZSskHXybNBXN R7vxFBS7 CLINICAL HISTORY (test u6fweZJhMXDvxHO8YeSnXVW code = 3356) wd4enz7RirJAxiQCaMQmxuX FvlmEgjb05kEG8rT07GB2zU WNgGfM9VXRzncF6Wcj1WPQe IOHgvKSkF358e1hpb9kegiQ yeHT6fElvIZIcvalkRuY8TM nnJXMwyyqdZYb4GJjlHNOsj BE5OOZvlNJcN0XvFAEdIO5w mki5SAV3NYnoOBJjWeD9DRB keFBhFKOvjPcaQTnow311GC E2XtIgLOSerqYepBpptX3cA cBfCBTHrnTvY1CjDUb9mNFa cGFyfQ== SPECIMEN SOURCE (test t9hfvIQyXLQxgOD5VxGtOXE code = 3377) oz9vmt9SysAUxsEYsKDdclU QnafZumv23tHJ0nM32UG9zL XGkWtC4BTHwhdJ5Tbd1YWBa MCOnaIHkX777f7cvf5uzvkT qkHH1dSvrDLQulezfPrI5TR qiSHXlqmajAZm7UWmrGTMmr WE6QMBupZZaT6JgQGOyMU3b kce0ZOT1IDflQQDbJmS2PKN fiRUbYQUvjRlrKOhtw044PR G8OtBrAIRzezBxcVefaT6mM nMyMCBNaXRyYWwgdmFsdmVc cGFyfQ== GROSS DESCRIPTION j6zgbLGuAZIcxDQvUoNsKLC (test code = 3366) dNLZbo0efENXzsKFoIxHrGi NcZnRuYmpcdWMxXGRlZmYwe 8bid525hJLzu8egFOPcTpY6 vCRzWVClzRIlR421FERaEQm oh1dld7PuYVEcvNApc1I6YD EZckptyPt0zWkyI62id7J4M qrvO4ikLXBqRNMiH6HnKH5l PPHxSyo3KVZ2IQM0LAVgBPV mM0ToFL8fDTNynCLuNFa2b5 rchQjxFISbSAI2m4ssTVylm gQwCC1uce0wzCb5f2arsfIs BQIeOCXzwYQCXWGgB3JxaWv oYk4rjCa4lNaxAtbwXFE2Fu q8WH0gla24gue5eHcpVKAdo rtaBcY3PJfbLZIsowavEQj5 MFxtYXJnbDcyMFxtYXJncjc yMFxtYXJndDcyMFxtYXJnYj ifKHtqZRNnJTR9PIlrs144K ZZ3UTtom3xss3jxrYFcBeb9 WDMqIgUsCsfoEMdwy5Udr5x rMMQpgv2qKDD1hWRhhPvde1 G0uVWiCRChlDQrszTvIBSiF mM9EOthUY3uqy99QVRgNHG4 ki6xkNNmoVjbkaYwrWZgHIm mP0GdOUIin349BNOcP3BtZP Wef9K6ujKwVgOcLATptFC7s hE1NOVjNEb8wSQqeiT6zpIv zZHsZ8qdpR64ZaKajECcZ9A ojZ85VzYtbGXtR9FpyQ58Di QnnTYeO4QzqP28OxDjeKAkM HXtkIZrCl4huAKilROsn4Uw qLCnUYfoT21kk708JDHrvvC xN8rcpLEqovoayOHkszorHP elqsX0HPKaIWToTBmxFESrL GZzMjBcbGFuZzEwMzNcaGlj wTkjVSfnSiQwHCWzKKblZ7u cZjBcZnMyMCBBLiAgUmVjZW s2KNGmwS0sRr0nvTTjfE0hd BLnZCkfJUX9pNUzMDIdHAIt KIVnPY63O6YroP7pk5YaLUW od15fUE5yYDVbpDQhZGqqvx FsdmUgbWFzcyIgaXMgYSAxL bGoV68yuF5ouWKcM5EtAZV4 IDAuMyBjbSBpbiBkaWFtZXR ykcU6GX6vvTijrfZ3nBRogJ DbRWjaxARiQTeoZRW1Ie1px NBeSULthjU7x8OkZZdpHBOn e3BaiZYwCTQjAyqbDBKvjPP vGTPmrlElgDjryO3wKiYyJj MyNFxwbGFpblxmMVxmczIwX MnqxsydUEBaMKbxD2baYqRo QBGrgZxhKUikn6XhJGUwOYZ fXfIgZZOjOVMqw3tdXD40TL xwbGFpblxmMFxmczIwXGxhb vwsZMCmTUdtR2thMnStXNVx qBwhRLxwl7HnBZVoPXEvZbR ccGFyfQ== MICROSCOPIC e8rotHFjCJBdmMK2MmSfBWF DESCRIPTION (test code cp7tbo8DtmQZiyCKdDGkfvY = 3371) KqrnYzhx20wBW1zK59VO4mR EAtYfS9FUHugiG8Qum3MKWc CBTzpWKtO705g2ltd5byoxM emML2jXcdQDFaclbiStJ9CE iiUFSyxarmSUm6MEdrOWLcy ZU3UPVnlNTsJ0DqHEQkSV4o hsa2OTA3PHwjPCOzEsF6UQQ haBIqRHOjzMcpAHkvm169KO U1SvSrZJIakfAidOtolT6zH mTbBTAUWNTwu4TkXCVwOXPi cn0= SPECIAL STUDIES (test b8jddSTjSWNwdIK6FhRbIIN code = 3376) ul4mfh7PgnWApvMZkDDaouG QqgnXmpo63zZI9dE89FA3cW YOyNpC2TFYmkjF4Ohv0CEDz VZJdwEFoO736UNEkOTLbsYy ldkx3wH12JMGgxH6imPLfVY shquBjTUnxpjYfygIjPkj0P OK4wZxlTUYksbflDsV9QAsw BJFrrcslTIs1OZrfZQLvgDW 8IFKtaNNtA4TsAGRsMS4fai l2PUY8LGujIUMzSzI7RCNjy LHpXSJxiPprXYste983DQU8 MfBfIXRusmQnwWnpdX9uFfV cZnMyMlxjZjEgVGhlIGludG LqbYHftEG4bU4wZG2yEKFur PUyR2IrXWFykqHvhRSsMUP3 qVRtrJNlDQ7xNDuyjOGor7y xs5MoQ2xryQstyMZ6YW5qXC DvXDIrSIpkm5QhjS9xNemqI MFaS0HiMDCOD0HYHDNcLJVA Gz6CCeZYZzEzDjQWRa4tSXo NUywgQUZCXHBhclxwYXJkXG CvWSTVs771bm1vQKYfjFWol tGGvXPdyZ9tSSfgDJbiBKhf gUUvATphr5rgLWXlj0c1eKG eVHGblvPft5kfLYlaqiJgJQ ZmhDWxsDMeTPNjq70tCKhuu SfhsIoxEIRrb7QcuTrbx3Te RcYnTWuxa4GzS09npEBuaFE qiXwvOEZpnkQjNBOgd45gs0 gjMTWqLcT9tXJslCB1bAXnr TFrt8DqtTitPGCvg4kdLMQw gy1zuevtzSPri9BdoD3xmqz vMEsuqLJlcrUvRNIzf6w3rR VnJBIuMKXmELkjuVl3DMDfh 548kl3nmfG2uGHzXFC8GIjw YWJsZSBhcmUgZXZhbHVhdGV eWJNotiXbFKVwwbHXkJ02dm 6wzTX6a8HoFH4dr3FmzLB2G WNobmljYWwgdGVzdGluZyB3 LOSruSJzRk1xoIPrTSK2KKS feKigoiRBnM5sLSCcWWu5GL GhXvFpRyuutxZUFKCgV4CaI XEfhjMadcliWUN3mX0no5m3 TWprBn6tIUNxgjifp5wbtpR prKKky1TwCVGuorUzd9HpPJ MwqoPzkGGwTTIqdePovz3ro fLcEKOaQMHvE3YwqoamxCkh niU6XLBnTHQrrWBulTirXSV iVAq8DGbixlQwq2QkQbJssm UozPKrnpXaYB0oJOMnlSIxy hYaKVU4ZMKyVEEHNoBmAEUw v7NaLL5hTYLlsLceIXFgxK8 wo5HaHEGgk31iVIUrNNWIIT EgaGFzIGRldGVybWluZWQgd ReitHHqpKFhCOXsIVMnVE6v EEAgkcNwlMWoh6UmjEIxgsM zy6QhheGxKOHfJWI4QdKMoJ LhnQMjpVYugdJ1n2LkRLKep iVhyEeciFSmnWPluEKzh9Xn hl6iXNZnq2nzhVocTE4lhJV iZSByZWdhcmRlZCBhcyBpbn Pki7NmH9C6cR5kLOnll7CmH z2xBETfx9HjzfLlAzRQqKla FComAg2cMFIfkcprvUInC2L ydGlmaWVkIHVuZGVyIHRoZS EFzNkjiAVdaWKYLOUqxhY0k 7Y0JFmohWQonhEsLO73BZBo XH4gbMHkuVHal0UoUSk6PDE cS2xMPV70VAhsVFYnsFIsbA spoKJbDPLsYGWgxuNcnv9za ShniRHdb28qvAP6rRT0KTIn nF3pO4CwXTgnMp9jAMOuwab abPHtnVkfRp6nmBFahE== Gross assessment was [facility] performed at ([facility], code = 2777) Department of Pathology, [address] [place] [address], Technical component [facility] was performed at ([facility], code = 2778) Department of Pathology, [address] [place] [address], Professional component [facility] was performed at ([facility], code = 2779) Department of Pathology, [address] [place] [address], [facility] [id number] 12:37:44 Test Item Value Reference Range Interpretation Comments POC-GLUCOSE METER 98 mg/dL 70-110 : TESTED A T [facility] 6720 (BEAKER) (test code = [facility], 1538) 50919: Control Technician/Techni kelle ID = [id number] for Kathleen fay (contract), [facility] POCT-GLUCOSE [id number] 08:40:16 Test Item Value Reference Range Interpretation Comments POC-GLUCOSE METER 120 mg/dL 70-110 H : TESTED A T [facility] 6720 (BEAKER) (test code = [facility], 1538) 63882: Control Technician/Techni kelle ID = [id number] for Aditya brewer (contract), [facility] BASIC METABOLIC [id number] 04:46:57 Test Item Value Reference Range Interpretation [...] S NOT APPLICABLE FOR DIALYSIS PATIEN TS. Control Technician ID - HIEN MERAZ, CHEST, 1 VIEW, NON [id number] 04:07:00Reason for exam:->post-opShould this be performed at the bedside?->Yes [facility] : 1955 Sex: FFINAL REPORT RAD, CHEST, 1 VIEW, NON DEPT INDICATION: post-op COMPARISON: Prior day's exam FINDINGS: Portable frontal view of the chest. IMPRESSION: Support Lines: Stable. Lungs and pleura: No interval consolidation or sizable effusion. No pneumothorax. Heart and mediastinum: Stable contours. Additional findings: None. Signed: Andrew Caryepwade Verified Date/Time: 06/24/2021 04:07:26 [id number] 03:54:16 Test Item Value Reference Range Interpretation Comments PHOSPHORUS (BEAKER) (test code = 4.3 mg/dL 2.3-4.7 604) Control Technician ID - HIEN [id number] 03:54:15 Test Item Value Reference Range Interpretation Comments MAGNESIUM (BEAKER) (test code = 2.4 mg/dL 1.6-2.6 627) Control Technician ID - HIEN [id number] 03:40:54 Test Item Value Reference Range Interpretation Comments PARTIAL THROMBOPLASTIN TIME 40.8 seconds 22.5-36.0 H (BEAKER) (test code = 760) PROTHROMBIN TIME/[id number] 03:39:49 Test Item Value Reference Range Interpretation Comments PROTIME (BEAKER) 13.1 seconds 11.9-14.2 (test code = 759) INR (BEAKER) (test 1.01 See_Comment [Automat ed message] code = 370) The system [employer] generated this result transmitted ref erence range: [...] WBC 0-0 (test code = 413) POCT-GLUCOSE [id number] 21:07:58 Test Item Value Reference Range Interpretation Comments POC-GLUCOSE METER 143 mg/dL 70-110 H : TESTED A T [facility] 6720 (BEAKER) (test code = [place], 1538) 26202: Control Technician/Techni kelle ID = [id number] for Sheryl Bergeron POCT-GLUCOSE [id number] 16:23:05 Test Item Value Reference Range Interpretation Comments POC-GLUCOSE METER 126 mg/dL 70-110 H : TESTED A T [facility] 6720 (BEAKER) (test code = [place], 1538) 74250: Control Technician/Techni kelle ID = [id number] for OSMANY OVGEL BASIC METABOLIC [id number] 13:28:45 Test Item Value Reference Range Interpretation [...] S NOT APPLICABLE FOR DIALYSIS PATIEN TS. Control Technician ID - HIEN MPOCT-GLUCOSE [id number] 11:56:58 Test Item Value Reference Range Interpretation Comments POC-GLUCOSE METER 122 mg/dL 70-110 H : TESTED A T [facility] 6720 (BEAKER) (test code = YUDY [place] [facility], 1538) 69694: Control Technician/Techni kelle ID = [id number] for OSMANY VOGEL 2D Echo W/Doppler(CW/PW/Color)2021-06-23 08:20:29Ejection FractionSLEH ECHO HEARTLAB [facility] Echo W/Doppler(CW/PW/Color)2021-06-23 08:20:29Ejection FractionSLEH ECHO HEARTLAB [facility] Echo W/Doppler(CW/PW/Color) 2021-06-23 08:20:29Ejection FractionSLEH ECHO HEARTLAB [facility] Echo W/Doppler(CW/PW/Color)2021-06-23 08:20:29Ejection FractionSLEH ECHO [facility]ARTLAB [facility] W/Doppler(CW/PW/Color)2021-06-23 08:20:29Ejection FractionSLEH ECHO HEARTLAB [facility]2D Echo W/Doppler(CW/PW/Color) 2021-06-23 08:20:29Ejection FractionSLEH ECHO HEARTLAB [facility]2D Echo W/Doppler(CW/PW/Color)2021-06-23 08:20:29Ejection FractionSLEH ECHO HEARTLAB [facility]2D Echo W/Doppler(CW/PW/Color)2021-06-23 08:20:29Ejection FractionSLEH ECHO HEARTLAB [facility]2D Echo W/Doppler(CW/PW/Color) 2021-06-23 08:20:29Ejection FractionSLEH ECHO HEARTLAB [facility]2D Echo W/Doppler(CW/PW/Color)2021-06-23 08:20:29Ejection FractionSLEH ECHO HEARTLAB [facility] Echo W/Doppler(CW/PW/Color)2021-06-23 08:20:29Ejection FractionSLEH ECHO HEARTLAB [facility]2D Echo W/Doppler(CW/PW/Color) 2021-06-23 08:20:29Ejection FractionSLEH ECHO HEARTLAB [facility]2D Echo W/Doppler(CW/PW/Color)2021-06-23 08:20:29Ejection FractionSLEH ECHO HEARTLAB [facility]2D Echo W/Doppler(CW/PW/Color)2021-06-23 08:20:29Ejection FractionSLEH ECHO HEARTLAB [facility] Echo W/Doppler(CW/PW/Color) 2021-06-23 08:20:29Ejection FractionSLEH ECHO HEARTLAB [facility]2D Echo W/Doppler(CW/PW/Color)2021-06-23 08:20:29Ejection FractionSLEH ECHO HEARTLAB [facility]2D Echo W/Doppler(CW/PW/Color)2021-06-23 08:20:29Ejection FractionSLEH ECHO HEARTLAB [facility] Echo W/Doppler(CW/PW/Color) 2021-06-23 08:20:29Ejection FractionSLE ECHO HEARTLAB [facility] CountyPOCT-GLU[facility]SE [id number] 07:43:14 Test Item Value Reference Range Interpretation Comments POC-GLUCOSE METER 111 mg/dL 70-110 H : TESTED A T [facility] 6720 (BEAKER) (test code = [place], 1538) 36970: Control Technician/Techni kelle ID = [id number] for OSMANY VOGEL BASIC METABOLIC [id number] 05:48:55 Test Item Value Reference Range Interpretation [...] S NOT APPLICABLE FOR DIALYSIS PATIEN TS. Control Technician ID - HIEN [id number] 05:28:52 Test Item Value Reference Range Interpretation Comments PHOSPHORUS (BEAKER) (test code = 3.7 mg/dL 2.3-4.7 604) Control Technician ID - HIEN [id number] 05:28:51 Test Item Value Reference Range Interpretation Comments MAGNESIUM (BEAKER) (test code = 2.2 mg/dL 1.6-2.6 627) Control Technician ID - HIEN MRAD, CHEST, 1 VIEW, NON [id number] 05:08:00Reason for exam:->post-opShould this be performed at the bedside?->Yes [facility] : 1955 Sex: FFINAL REPORT RAD, CHEST, 1 VIEW, NON DEPT INDICATION: post-op COMPARISON: Prior day's exam FINDINGS: Portable frontal view of the chest. IMPRESSION: Support Lines: Stable. Lungs and pleura: There is improved aeration of both lungs. No new airspace consolidation. No pneumothorax. Heart and mediastinum: Stable contours. Additional findings: None. Signed: Andrew Cary VerifiedDate/Time: 06/23/2021 05:08:22 [id number] 03:01:03 Test Item Value Reference Range Interpretation Comments PARTIAL THROMBOPLASTIN TIME 35.7 seconds 22.5-36.0 (BEAKER) (test code = 760) PROTHROMBIN TIME/[id number] 03:00:01 Test Item Value Reference Range Interpretation Comments PROTIME (BEAKER) 13.3 seconds 11.9-14.2 (test code = 759) INR (BEAKER) (test 1.03 See_Comment [Automat ed message] code = 370) The system [employer] generated this result transmitted ref erence range: [...] WBC 0-0 (test code = 413) POCT-GLUCOSE [id number] 22:23:22 Test Item Value Reference Range Interpretation Comments POC-GLUCOSE METER 146 mg/dL 70-110 H : TESTED A T [facility] 6720 (BEAKER) (test code = [place], 1538) 04390: Control Technician/Techni kelle ID = [id number] for PR CRISTINA SORENSEN POCT-GLUCOSE [id number] 18:28:19 Test Item Value Reference Range Interpretation Comments POC-GLUCOSE METER 101 mg/dL 70-110 : TESTED A T [facility] 6720 (BEAKER) (test code = [facility], 1538) 53315: Control Technician/Techni kelle ID = [id number] for Tacos rene (contract), Amb er BASIC METABOLIC [id number] 14:57:30 Test Item Value Reference Range Interpretation [...] S NOT APPLICABLE FOR DIALYSIS PATIEN TS. Control Technician ID - AAHAMIDPOCT-GLUCOSE [id number] 12:37:53 Test Item Value Reference Range Interpretation Comments POC-GLUCOSE METER 69 mg/dL 70-110 L : TESTED A T [facility] 6720 (BEAKER) (test code = [facility], 1538) 22288: Control Technician/Techni kelle ID = [id number] for Frances knutson (contract), Amb er Oxygen saturation, [id number] 10:49:59 Test Item Value Reference Range Interpretation Comments O2 Saturation (Measured) (test code = 79.8 % 88248-2) [facility] [id number] 10:49:59 Test Item Value Reference Range Interpretation Comments O2 Saturation (Measured) (test code = 79.8 % 92918-8) [facility], [id number] 10:49:59 Test Item Value Reference Range Interpretation Comments O2 Saturation (Measured) (test code = 79.8 % 82746-0) [facility], [id number] 10:49:59 Test Item Value Reference Range Interpretation Comments O2 Saturation (Measured) (test code = 79.8 % 42988-6) [facility], [id number] 10:49:59 Test Item Value Reference Range Interpretation Comments O2 Saturation (Measured) (test code = 79.8 % 40049-9) [facility], [id number] 10:49:59 Test Item Value Reference Range Interpretation Comments O2 Saturation (Measured) (test code = 79.8 % 16511-9) [facility], [id number] 10:49:59 Test Item Value Reference Range Interpretation Comments O2 Saturation (Measured) (test code = 79.8 % 72127-1) [facility], [id number] 10:49:59 Test Item Value Reference Range Interpretation Comments O2 Saturation (Measured) (test code = 79.8 % 32351-4) [facility], [id number] 10:49:59 Test Item Value Reference Range Interpretation Comments O2 Saturation (Measured) (test code = 79.8 % 00123-8) [facility], [id number] 10:49:59 Test Item Value Reference Range Interpretation Comments O2 Saturation (Measured) (test code = 79.8 % 87063-6) [facility], [id number] 10:49:59 Test Item Value Reference Range Interpretation Comments O2 Saturation (Measured) (test code = 79.8 % 48191-0) [facility], [id number] 10:49:59 Test Item Value Reference Range Interpretation Comments O2 Saturation (Measured) (test code = 79.8 % 74541-2) [facility], [id number] 10:49:59 Test Item Value Reference Range Interpretation Comments O2 Saturation (Measured) (test code = 79.8 % 58961-2) [facility], [id number] 10:49:59 Test Item Value Reference Range Interpretation Comments O2 Saturation (Measured) (test code = 79.8 % 64744-5) [facility], [id number] 10:49:59 Test Item Value Reference Range Interpretation Comments O2 Saturation (Measured) (test code = 79.8 % 99738-2) [facility], [id number] 10:49:59 Test Item Value Reference Range Interpretation Comments O2 Saturation (Measured) (test code = 79.8 % 48900-2) [facility] HospitalO[facility], [id number] 10:49:59 Test Item Value Reference Range Interpretation Comments O2 Saturation (Measured) (test code = 79.8 % 87946-3) [facility], [id number] 10:49:59 Test Item Value Reference Range Interpretation Comments O2 Saturation (Measured) (test code = 79.8 % 18460-0) [facility] HospitalOXYGEN SATURATION, [id number] 10:49:59 Test Item Value Reference Range Interpretation Comments O2 SATURATION (MEASURED) (BEAKER) 79.8 % (test code = 1455) BASIC METABOLIC [id number] 07:15:45 Test Item Value Reference Range Interpretation [...] S NOT APPLICABLE FOR DIALYSIS PATIEN TS. Control Technician ID - DBRAD, CHEST, 1 VIEW, NON [id number] 03:19:00Reason for exam:->post-opShould this be performed at the bedside?->Yes [facility] : 1955 Sex: FFINAL REPORT CLINICAL INDICATION: post-op Comparison: 06/21/2021 The cardiomediastinal contours are stable. The lung volumes remain low. Central pulmonary vascular congestion and bilateral parenchymal opacities are unchanged. There is no pneumothorax. Support lines are stable. Signed:Braxton Quintero MDReport Verified Date/Time: 06/22/2021 03:19:08 BASIC METABOLIC [id number] 02:00:09 Test Item Value Reference Range Interpretation [...] S NOT APPLICABLE FOR DIALYSIS PATIEN TS. Control Technician ID - [id number] 01:57:06 Test Item Value Reference Range Interpretation Comments MAGNESIUM (BEAKER) 2.5 mg/dL 1.6-2.6 Specimen slightly (test code = 627) hemolyzed Control Technician ID - [id number] 01:57:06 Test Item Value Reference Range Interpretation Comments PHOSPHORUS (BEAKER) 5.0 mg/dL 2.3-4.7 H Specimen slightly (test code = 604) hemolyzed Control Technician ID - [id number] 01:54:46 Test Item Value Reference Range Interpretation Comments PARTIAL THROMBOPLASTIN TIME 37.8 seconds 22.5-36.0 H (BEAKER) (test code = 760) PROTHROMBIN TIME/[id number] 01:53:47 Test Item Value Reference Range Interpretation Comments PROTIME (BEAKER) 16.4 seconds 11.9-14.2 H (test code = 759) INR (BEAKER) (test 1.34 See_Comment [Automat ed message] code = 370) The system [employer] generated this result transmitted ref erence range: [...] WBC 0-0 (test code = 413) POCT-GLUCOSE [id number] 21:22:08 Test Item Value Reference Range Interpretation Comments POC-GLUCOSE METER 73 mg/dL 70-110 : TESTED A T [facility] 6720 (BEAKER) (test code = [facility], 153) 37792: Control Technician/Techni kelle ID = [id number] for Rodríguez Rojas POCT-GLUCOSE [id number] 19:10:01 Test Item Value Reference Range Interpretation Comments POC-GLUCOSE METER 83 mg/dL 70-110 : TESTED A T [facility] 6720 (BEAKER) (test code = [facility], 153) 45623: Control Technician/Techni kelle ID = [id number] for HATTIE SALAZAR BASIC METABOLIC [id number] 14:08:36 Test Item Value Reference Range Interpretation [...] S NOT APPLICABLE FOR DIALYSIS PATIEN TS. Control Technician ID - DBPOCT-GLUCOSE [id number] 13:42:11 Test Item Value Reference Range Interpretation Comments POC-GLUCOSE METER 72 mg/dL 70-110 : [facility] (BEAKER) (test code = YUDY [place] [facility], 1538) 36317: Control Technician/Techni kelle ID = [id number] for Sun(contract )Katt Surgically obtained culture + gram [id number] 11:46:53 Test Item Value Reference Range Interpretation Comments Result (test code = 6463-4) No growth Gram Stain Result (test No organisms seen code = 1123) [facility] gram [id number] 11:46:53 Test Item Value Reference Range Interpretation Comments Result (test code = 6463-4) No growth Gram Stain Result (test No organisms seen code = 1123) [facility] + gram [id number] 11:46:53 Test Item Value Reference Range Interpretation Comments Result (test code = 6463-4) No growth Gram Stain Result (test No organisms seen code = 1123) [facility] + gram [id number] 11:46:53 Test Item Value Reference Range Interpretation Comments Result (test code = 6463-4) No growth Gram Stain Result (test No organisms seen code = 1123) [facility] + gram [id number] 11:46:53 Test Item Value Reference Range Interpretation Comments Result (test code = 6463-4) No growth Gram Stain Result (test No organisms seen code = 1123) [facility] + gram [id number] 11:46:53 Test Item Value Reference Range Interpretation Comments Result (test code = 6463-4) No growth Gram Stain Result (test No organisms seen code = 1123) [facility] + gram [id number] 11:46:53 Test Item Value Reference Range Interpretation Comments Result (test code = 6463-4) No growth Gram Stain Result (test No organisms seen code = 1123) [facility] + gram [id number] 11:46:53 Test Item Value Reference Range Interpretation Comments Result (test code = 6463-4) No growth Gram Stain Result (test No organisms seen code = 1123) [facility] + gram [id number] 11:46:53 Test Item Value Reference Range Interpretation Comments Result (test code = 6463-4) No growth Gram Stain Result (test No organisms seen code = 1123) [facility] + gram [id number] 11:46:53 Test Item Value Reference Range Interpretation Comments Result (test code = 6463-4) No growth Gram Stain Result (test No organisms seen code = 1123) [facility] + gram [id number] 11:46:53 Test Item Value Reference Range Interpretation Comments Result (test code = 6463-4) No growth Gram Stain Result (test No organisms seen code = 1123) [facility] + gram [id number] 11:46:53 Test Item Value Reference Range Interpretation Comments Result (test code = 6463-4) No growth Gram Stain Result (test No organisms seen code = 1123) [facility] + gram [id number] 11:46:53 Test Item Value Reference Range Interpretation Comments Result (test code = 6463-4) No growth Gram Stain Result (test No organisms seen code = 1123) [facility] + gram [id number] 11:46:53 Test Item Value Reference Range Interpretation Comments Result (test code = 6463-4) No growth Gram Stain Result (test No organisms seen code = 1123) [facility] + gram [id number] 11:46:53 Test Item Value Reference Range Interpretation Comments Result (test code = 6463-4) No growth Gram Stain Result (test No organisms seen code = 1123) [facility] + gram [id number] 11:46:53 Test Item Value Reference Range Interpretation Comments Result (test code = 6463-4) No growth Gram Stain Result (test No organisms seen code = 1123) [facility] + gram [id number] 11:46:53 Test Item Value Reference Range Interpretation Comments Result (test code = 6463-4) No growth Gram Stain Result (test No organisms seen code = 1123) [facility] + gram [id number] 11:46:53 Test Item Value Reference Range Interpretation Comments Result (test code = 6463-4) No growth Gram Stain Result (test No organisms seen code = 1123) [facility] HospitalURGICALLY OBTAINED CULT[facility] + GRAM [id number] 11:46:53 Test Item Value Reference Range Interpretation Comments CULTURE (BEAKER) (test code No growth = 1095) GRAM STAIN RESULT (BEAKER) 1+ WBCs (test code = 1123) GRAM STAIN RESULT (BEAKER) No organisms seen (test code = 34291) RAD, CHEST, 1 VIEW, NON [id number] 06:05:00Reason for exam:->post-opShould this be performed at the bedside?->Yes [facility] : 1955 Sex: [...] Caryeport Verified Date/Time: 06/21/2021 06:05:24 BASIC METABOLIC [id number] 03:54:19 Test Item Value Reference Range Interpretation [...] S NOT APPLICABLE FOR DIALYSIS PATIEN TS. Control Technician ID - [id number] 03:49:06 Test Item Value Reference Range Interpretation Comments PHOSPHORUS (BEAKER) (test code = 4.5 mg/dL 2.3-4.7 604) Control Technician ID - [id number] 03:49:05 Test Item Value Reference Range Interpretation Comments MAGNESIUM (BEAKER) (test code = 2.4 mg/dL 1.6-2.6 627) Control Technician ID - DBCBC (HEMOGRAM ONLY)2021-06-21 03:45:10 Test [...] /100 WBC 0-0 (test code = 413) [id number] 03:45:00 Test Item Value Reference Range Interpretation Comments PARTIAL THROMBOPLASTIN TIME 35.5 seconds 22.5-36.0 (BEAKER) (test code = 760) PROTHROMBIN TIME/[id number] 03:44:22 Test Item Value Reference Range Interpretation Comments PROTIME (BEAKER) 14.1 seconds 11.9-14.2 (test code = 759) INR (BEAKER) (test 1.11 See_Comment [Automat ed message] code = 370) The system [employer] generated this result transmitted ref erence range: <=5.90. The reference range was not used to int erpret this result as normal/abnormal . RECOMMENDED COUMADIN/WARFARIN INR THERAPY RANGESSTANDARD DOSE: 2.0 - 3.0 Includes: PROPHYLAXIS for venous thrombosis, systemic embolization; TREATMENT for venous thrombosis and/or pulmonary embolus.HIGH RISK: Target INR is 2.5-3.5 for patients with mechanical heart valves.BASIC METABOLIC [id number] 18:24:15 Test Item Value Reference Range Interpretation [...] S NOT APPLICABLE FOR DIALYSIS PATIEN TS. Control Technician ID - PIAYA LPOCT-GLUCOSE [id number] 13:44:48 Test Item Value Reference Range Interpretation Comments POC-GLUCOSE METER 165 mg/dL 70-110 H : TESTED A T [facility] 6720 (BEAKER) (test code = [place], 1538) 46447: Control Technician/Techni kelle ID = [id number] for KOTA ARIAS SARS-CoV2/RT-PCR (Asymptomatic ONLY)2021-06-20 11:58:08 Test Item Value Reference Range Interpretation Comments SARS-COV2/RT-PCR Negative Not Detected, (test code = Negative, See 70852-4) external report for linked test SARS-COV-2 [facility] PERFORMING LAB (test code = 94139-3) BRANDI (test code = Negative result for [...] of the Act. Fact Sheet for Healthcare Providers:https://www.[employer]/sites/default/f radha/product/documents/F act_Sheet_HC_Providers_L fjc_DLRZ-DjW-3.pdf Fact Sheet for Healthcare Patients:https://www.[employer]/sites/default/fi les/product/documents/Fa ct_Sheet_Patients_Lyra_S ARS-CoV-2.pdf Performing Laboratory:[facility] [place] [address] [facility] (Asymptomatic ONLY)2021-06-20 11:58:08 Test Item Value Reference Range Interpretation Comments SARS-COV2/RT-PCR Negative Not Detected, (test code = Negative, See 31286-1) external report for linked test SARS-COV-2 [facility] PERFORMING LAB (test code = 16444-8) BRANDI (test code = Negative result for [...] of the Act. Fact Sheet for Healthcare Providers:https://www.[employer]/sites/default/f radha/product/documents/F act_Sheet_HC_Providers_L odf_LHKE-KaT-8.pdf Fact Sheet for Healthcare Patients:https://www.[employer]/sites/default/fi les/product/documents/Fa ct_Sheet_Patients_Lyra_S ARS-CoV-2.pdf Performing Laboratory:[facility] [place] [address] [facility]ARS-[facility]OV2/RT-PCR ([facility])2021-06-20 11:58:08 Test Item Value Reference Range Interpretation Comments SARS-COV2/RT-PCR (test Negative Not Detected, Negative, code = 9369958) See external report for linked test SARS-COV-2 PERFORMING LAB [facility] ALICIA (test code = 5454036) Negative result for this test determines that [...] of the Act.Fact Sheet for Healthcare Prov iders:https://www.[employer]over.[employer]/sites/default/files/product/documents/Fact_Sheet_HC _Amcgrrtoa_Ioln_KIIJ-EyA-7.pdfFact Sheet for Healthcare Patients:https://www.[employer]/sites/default/files/product/docume nts/Zmxn_Szavz_Ikqklkwh_Cebn_PZCX-QeM-7.pdfPerforming Laboratory:[facility], [place] [address]TWLM-JGFYOSA METER 2021-06-20 06:30:37 Test Item Value Reference Range Interpretation Comments POC-GLUCOSE METER 145 mg/dL 70-110 H : TESTED A T [facility] 6720 (AKASH) (test [facility], = 1538) 09271: Control Technician/Techni kelle ID = [id number] for Tash wiseman (contract), Adal hernandez RAD, CHEST, 1 VIEW, NON [id number] 06:25:00Reason for exam:->post-opShould this be performed at the bedside?->Yes [facility] : 1955 Sex: FFINAL REPORT RAD, CHEST, 1 VIEW, NON DEPT INDICATION: post-op COMPARISON: Prior day's exam FINDINGS: Portable frontal view of the chest. IMPRESSION: Support Lines: Interval extubation. A drainage catheter overlies the upper abdomen and lower hemidiaphragm in the center. Keller-Blayne tipoverlies the pulmonary outflow tract. Pacer device and sternotomy wires are unchanged. Lungs and pleura: Bilateral effusions and adjacent compressive atelectasis are unchanged No significant pneumothorax. Heart and mediastinum: Normal contours. Additional findings: None. Signed: Bayron Cosme MDReport Verified Date/Time: 06/20/2021 06:25:51 Electronically signed by: BAYRON COSME MD on 0 06/20/2021 06:25 [id number] 02:12:20 Test Item Value Reference Range Interpretation Comments PARTIAL THROMBOPLASTIN TIME 35.8 seconds 22.5-36.0 (AKASH) (test code = 760) PROTHROMBIN TIME/[id number] 02:11:37 Test Item Value Reference Range Interpretation Comments PROTIME (AKASH) 15.4 seconds 11.9-14.2 H (test code = 759) INR (BEAKER) (test 1.24 See_Comment [Automat ed message] code = 370) The system [employer] generated this result transmitted ref erence range: <=5.90. The reference range was not used to int erpret this result as normal/abnormal . RECOMMENDED COUMADIN/WARFARIN INR THERAPY RANGESSTANDARD DOSE: 2.0 - 3.0 Includes: PROPHYLAXIS for venous thrombosis, systemic embolization; TREATMENT for venous thrombosis and/or pulmonary embolus.HIGH RISK: Target INR is 2.5-3.5 for patients with mechanical heart valves.BASIC METABOLIC [id number] 02:08:36 Test Item Value Reference Range Interpretation [...] S NOT APPLICABLE FOR DIALYSIS PATIEN TS. Control Technician ID - [id number] 01:57:56 Test Item Value Reference Range Interpretation Comments PHOSPHORUS (BEAKER) (test code = 4.1 mg/dL 2.3-4.7 604) Control Technician ID - [id number] 01:57:55 Test Item Value Reference Range Interpretation Comments MAGNESIUM (BEAKER) (test code = 2.2 mg/dL 1.6-2.6 627) Control Technician ID - DBCBC (HEMOGRAM ONLY)2021-06-20 01:36:09 Test [...] 0-0 (test code = 413) Blood gas, [id number] 01:27:29 Test Item Value Reference Range Interpretation [...] 28 Lab Interpretation Abnormal (test code = 61448-6) [facility] zaexpekt2085[facility]05-97 01:27:29 Test Item Value Reference Range Interpretation [...] 28 Lab Interpretation Abnormal (test code = 51369-1) [facility], [id number] 01:27:29 Test Item Value Reference Range Interpretation [...] 28 Lab Interpretation Abnormal (test code = 30496-8) [facility] kvogwxlu2757-98-53 01:27:29 Test Item Value Reference Range Interpretation [...] 28 Lab Interpretation Abnormal (test code = 73688-4) [facility], afoxrdrh8396-82-50 01:27:29 Test Item Value Reference Range Interpretation [...] 28 Lab Interpretation Abnormal (test code = 47183-7) [facility] gas, vtcpcjey7473-65-47 01:27:29 Test Item Value Reference Range Interpretation [...] 28 Lab Interpretation Abnormal (test code = 46075-0) [facility] gas, [id number] 01:27:29 Test Item Value Reference Range Interpretation [...] 28 Lab Interpretation Abnormal (test code = 40639-7) [facility] vjrjjcaj5762-20-15 01:27:29 Test Item Value Reference Range Interpretation [...] 28 Lab Interpretation Abnormal (test code = 57586-8) [facility], [id number] 01:27:29 Test Item Value Reference Range Interpretation [...] 28 Lab Interpretation Abnormal (test code = 52268-8) [facility] [id number] 01:27:29 Test Item Value Reference Range Interpretation [...] 28 Lab Interpretation Abnormal (test code = 98032-6) [facility], [id number] 01:27:29 Test Item Value Reference Range Interpretation [...] 28 Lab Interpretation Abnormal (test code = 68942-0) [facility], wrskntgk3993-93-12 01:27:29 Test Item Value Reference Range Interpretation [...] 28 Lab Interpretation Abnormal (test code = 96846-6) [facility], xqfjprhy8355-07-91 01:27:29 Test Item Value Reference Range Interpretation [...] 28 Lab Interpretation Abnormal (test code = 19512-8) [facility] [id number] 01:27:29 Test Item Value Reference Range Interpretation [...] 28 Lab Interpretation Abnormal (test code = 80930-0) [facility] lygswpyt6090-95-98 01:27:29 Test Item Value Reference Range Interpretation [...] 28 Lab Interpretation Abnormal (test code = 88185-5) [facility], [id number] 01:27:29 Test Item Value Reference Range Interpretation [...] 28 Lab Interpretation Abnormal (test code = 65019-6) [facility], jvtinzxm9637-64-00 01:27:29 Test Item Value Reference Range Interpretation [...] 28 Lab Interpretation Abnormal (test code = 80190-6) [facility], [id number] 01:27:29 Test Item Value Reference Range Interpretation [...] 28 Lab Interpretation Abnormal (test code = 76943-8) [facility] GAS, [id number] 01:27:29 Test Item Value Reference Range Interpretation [...] (BEAKER) (test code = 1819) 28.0 Calcium, [id number] 01:26:07 Test Item Value Reference Range Interpretation Comments Calcium, Ion (test code = 1993-06) 1.17 mmol/L 1.12-1.27 pH, Blood (test code = 14230-4) 7.39 [facility], Qxcyxrw7864-86-12 01:26:07 Test Item Value Reference Range Interpretation Comments Calcium, Ion (test code = 1993-06) 1.17 mmol/L 1.12-1.27 pH, Blood (test code = 62634-6) 7.39 [facility], Cngnthr6023-87-89 01:26:07 Test Item Value Reference Range Interpretation Comments Calcium, Ion (test code = 1993-06) 1.17 mmol/L 1.12-1.27 pH, Blood (test code = 01346-7) 7.39 [facility], Rvwybcs1518-87-36 01:26:07 Test Item Value Reference Range Interpretation Comments Calcium, Ion (test code = 1993-06) 1.17 mmol/L 1.12-1.27 pH, Blood (test code = 64705-4) 7.39 [facility], Wzpsrbn2304-30-51 01:26:07 Test Item Value Reference Range Interpretation Comments Calcium, Ion (test code = 1993-06) 1.17 mmol/L 1.12-1.27 pH, Blood (test code = 88583-3) 7.39 [facility], Ekayvge4672-05-22 01:26:07 Test Item Value Reference Range Interpretation Comments Calcium, Ion (test code = 1993-06) 1.17 mmol/L 1.12-1.27 pH, Blood (test code = 95480-6) 7.39 [facility], [id number] 01:26:07 Test Item Value Reference Range Interpretation Comments Calcium, Ion (test code = 1993-06) 1.17 mmol/L 1.12-1.27 pH, Blood (test code = 14052-1) 7.39 [facility], Gnvpcee8107-00-37 01:26:07 Test Item Value Reference Range Interpretation Comments Calcium, Ion (test code = 1993-06) 1.17 mmol/L 1.12-1.27 pH, Blood (test code = 61539-9) 7.39 [facility], [id number] 01:26:07 Test Item Value Reference Range Interpretation Comments Calcium, Ion (test code = 1993-06) 1.17 mmol/L 1.12-1.27 pH, Blood (test code = 70890-4) 7.39 [facility], [id number] 01:26:07 Test Item Value Reference Range Interpretation Comments Calcium, Ion (test code = 1993-06) 1.17 mmol/L 1.12-1.27 pH, Blood (test code = 36258-1) 7.39 [facility], [id number] 01:26:07 Test Item Value Reference Range Interpretation Comments Calcium, Ion (test code = 1993-06) 1.17 mmol/L 1.12-1.27 pH, Blood (test code = 37235-6) 7.39 [facility], [id number] 01:26:07 Test Item Value Reference Range Interpretation Comments Calcium, Ion (test code = 1993-06) 1.17 mmol/L 1.12-1.27 pH, Blood (test code = 72680-9) 7.39 [facility], Jjcodwh2545-24-03 01:26:07 Test Item Value Reference Range Interpretation Comments Calcium, Ion (test code = 1993-06) 1.17 mmol/L 1.12-1.27 pH, Blood (test code = 63700-2) 7.39 [facility], [id number] 01:26:07 Test Item Value Reference Range Interpretation Comments Calcium, Ion (test code = 1993-06) 1.17 mmol/L 1.12-1.27 pH, Blood (test code = 42373-7) 7.39 [facility], [id number] 01:26:07 Test Item Value Reference Range Interpretation Comments Calcium, Ion (test code = 1993-06) 1.17 mmol/L 1.12-1.27 pH, Blood (test code = 85889-1) 7.39 [facility], Gukjeni2975-51-99 01:26:07 Test Item Value Reference Range Interpretation Comments Calcium, Ion (test code = 1993-06) 1.17 mmol/L 1.12-1.27 pH, Blood (test code = 55960-3) 7.39 [facility], [id number] 01:26:07 Test Item Value Reference Range Interpretation Comments Calcium, Ion (test code = 1993-06) 1.17 mmol/L 1.12-1.27 pH, Blood (test code = 34819-4) 7.39 [facility] [id number] 01:26:07 Test Item Value Reference Range Interpretation Comments Calcium, Ion (test code = 1993-06) 1.17 mmol/L 1.12-1.27 pH, Blood (test code = 70907-3) 7.39 [facility] [id number] 01:26:07 Test Item Value Reference Range Interpretation Comments CALCIUM IONIZED (BEAKER) (test 1.17 mmol/L 1.12-1.27 code = 698) PH, BLOOD (BEAKER) (test code = 7.39 1810) Prepare [id number] 23:55:00 Test Item Value Reference Range Interpretation Comments Unit ABO (test code = 2564136) A Pos UNIT NUMBER (test code = [id number] 934-0) Status (test code = 7900199) TX_TIMEINCHART Blood Bank Product (test code PLATELETS = 2263) PRODUCT CODE (test code = F6727I77 933-2) [facility] [id number] 23:55:00 Test Item Value Reference Range Interpretation Comments Unit ABO (test code = 8563394) A Pos UNIT NUMBER (test code = [id number] 934-0) Status (test code = 7819938) TX_TIMEINCHART Blood Bank Product (test code PLATELETS = 2263) PRODUCT CODE (test code = O8951D84 933-2) [facility] [id number] 23:55:00 Test Item Value Reference Range Interpretation Comments Unit ABO (test code = 9274236) A Pos UNIT NUMBER (test code = [id number] 934-0) Status (test code = 1298520) TX_TIMEINCHART Blood Bank Product (test code PLATELETS = 2263) PRODUCT CODE (test code = O0715B58 933-2) [facility] [id number] 23:55:00 Test Item Value Reference Range Interpretation Comments Unit ABO (test code = 4121516) A Pos UNIT NUMBER (test code = [id number] 934-0) Status (test code = 8488742) TX_TIMEINCHART Blood Bank Product (test code PLATELETS = 2263) PRODUCT CODE (test code = D3550Y71 933-2) [facility] [id number] 23:55:00 Test Item Value Reference Range Interpretation Comments Unit ABO (test code = 9557945) A Pos UNIT NUMBER (test code = [id number] 934-0) Status (test code = 1817128) TX_TIMEINCHART Blood Bank Product (test code PLATELETS = 2263) PRODUCT CODE (test code = W9155N94 933-2) [facility] [id number] 23:55:00 Test Item Value Reference Range Interpretation Comments Unit ABO (test code = 6942654) A Pos UNIT NUMBER (test code = [id number] 934-0) Status (test code = 3989055) TX_TIMEINCHART Blood Bank Product (test code PLATELETS = 2263) PRODUCT CODE (test code = U8659H12 933-2) [facility] [id number] 23:55:00 Test Item Value Reference Range Interpretation Comments Unit ABO (test code = 4280500) A Pos UNIT NUMBER (test code = [id number] 934-0) Status (test code = 2387500) TX_TIMEINCHART Blood Bank Product (test code PLATELETS = 2263) PRODUCT CODE (test code = B9437I91 933-2) [facility] [id number] 23:55:00 Test Item Value Reference Range Interpretation Comments Unit ABO (test code = 9038448) A Pos UNIT NUMBER (test code = [id number] 934-0) Status (test code = 5741890) TX_TIMEINCHART Blood Bank Product (test code PLATELETS = 2263) PRODUCT CODE (test code = R5878Z65 933-2) [facility] [id number] 23:55:00 Test Item Value Reference Range Interpretation Comments Unit ABO (test code = 1247917) A Pos UNIT NUMBER (test code = [id number] 934-0) Status (test code = 6380969) TX_TIMEINCHART Blood Bank Product (test code PLATELETS = 2263) PRODUCT CODE (test code = W8143Y96 933-2) [facility] [id number] 23:55:00 Test Item Value Reference Range Interpretation Comments Unit ABO (test code = 7723731) A Pos UNIT NUMBER (test code = [id number] 934-0) Status (test code = 4278860) TX_TIMEINCHART Blood Bank Product (test code PLATELETS = 2263) PRODUCT CODE (test code = H6690G86 933-2) [facility] [id number] 23:55:00 Test Item Value Reference Range Interpretation Comments Unit ABO (test code = 4119945) A Pos UNIT NUMBER (test code = [id number] 934-0) Status (test code = 7704881) TX_TIMEINCHART Blood Bank Product (test code PLATELETS = 2263) PRODUCT CODE (test code = K7343B35 933-2) [facility] [id number] 23:55:00 Test Item Value Reference Range Interpretation Comments Unit ABO (test code = 9083647) A Pos UNIT NUMBER (test code = [id number] 934-0) Status (test code = 9018526) TX_TIMEINCHART Blood Bank Product (test code PLATELETS = 2263) PRODUCT CODE (test code = V4580M08 933-2) [facility] [id number] 23:55:00 Test Item Value Reference Range Interpretation Comments Unit ABO (test code = 1782893) A Pos UNIT NUMBER (test code = [id number] 934-0) Status (test code = 5642860) TX_TIMEINCHART Blood Bank Product (test code PLATELETS = 2263) PRODUCT CODE (test code = H6906H05 933-2) [facility] [id number] 23:55:00 Test Item Value Reference Range Interpretation Comments Unit ABO (test code = 9301682) A Pos UNIT NUMBER (test code = [id number] 934-0) Status (test code = 3605148) TX_TIMEINCHART Blood Bank Product (test code PLATELETS = 2263) PRODUCT CODE (test code = O9399V49 933-2) [facility] [id number] 23:55:00 Test Item Value Reference Range Interpretation Comments Unit ABO (test code = 9284632) A Pos UNIT NUMBER (test code = [id number] 934-0) Status (test code = 5043470) TX_TIMEINCHART Blood Bank Product (test code PLATELETS = 2263) PRODUCT CODE (test code = Y9310N62 933-2) [facility] [id number] 23:55:00 Test Item Value Reference Range Interpretation Comments Unit ABO (test code = 3267788) A Pos UNIT NUMBER (test code = [id number] 934-0) Status (test code = 5841134) TX_TIMEINCHART Blood Bank Product (test code PLATELETS = 2263) PRODUCT CODE (test code = C8717Y65 933-2) [facility] [id number] 23:55:00 Test Item Value Reference Range Interpretation Comments Unit ABO (test code = 2315868) A Pos UNIT NUMBER (test code = [id number] 934-0) Status (test code = 4090136) TX_TIMEINCHART Blood Bank Product (test code PLATELETS = 2263) PRODUCT CODE (test code = M4749I49 933-2) [facility] [id number] 23:55:00 Test Item Value Reference Range Interpretation Comments Unit ABO (test code = 7215060) A Pos UNIT NUMBER (test code = [id number] 934-0) Status (test code = 0524405) TX_TIMEINCHART Blood Bank Product (test code PLATELETS = 2263) PRODUCT CODE (test code = W4212B31 933-2) [facility] [id number] 23:54:00 Test Item Value Reference Range Interpretation Comments CROSSMATCH (test code = COMPATIBLE 2264) Unit ABO (test code = O Pos 6408914) UNIT NUMBER (test code = [id number] 934-0) Status (test code = RETURNED FROM ISSUE 15100613) Blood Bank Product (test RED BLOOD CELLS code = 2263) PRODUCT CODE (test code = X2995W67 933-2) [facility] [id number] 23:54:00 Test Item Value Reference Range Interpretation Comments CROSSMATCH (test code = COMPATIBLE 2264) Unit ABO (test code = O Pos 7865234) UNIT NUMBER (test code = [id number] 934-0) Status (test code = RETURNED FROM ISSUE 5484001) Blood Bank Product (test RED BLOOD CELLS code = 2263) PRODUCT CODE (test code = H8556U02 933-2) [facility] [id number] 23:54:00 Test Item Value Reference Range Interpretation Comments CROSSMATCH (test code = COMPATIBLE 2264) Unit ABO (test code = O Pos 4820308) UNIT NUMBER (test code = [id number] 934-0) Status (test code = RETURNED FROM ISSUE 15100613) Blood Bank Product (test RED BLOOD CELLS code = 2263) PRODUCT CODE (test code = P1304J64 933-2) [facility] [id number] 23:54:00 Test Item Value Reference Range Interpretation Comments CROSSMATCH (test code = COMPATIBLE 2264) Unit ABO (test code = O Pos 2357647) UNIT NUMBER (test code = [id number] 934-0) Status (test code = RETURNED FROM ISSUE 15100613) Blood Bank Product (test RED BLOOD CELLS code = 2263) PRODUCT CODE (test code = G6362R38 933-2) [facility] [id number] 23:54:00 Test Item Value Reference Range Interpretation Comments CROSSMATCH (test code = COMPATIBLE 2264) Unit ABO (test code = O Pos 7841356) UNIT NUMBER (test code = [id number] 934-0) Status (test code = RETURNED FROM ISSUE 15100613) Blood Bank Product (test RED BLOOD CELLS code = 2263) PRODUCT CODE (test code = F0373F65 933-2) [facility] [id number] 23:54:00 Test Item Value Reference Range Interpretation Comments CROSSMATCH (test code = COMPATIBLE 2264) Unit ABO (test code = O Pos 7253071) UNIT NUMBER (test code = [id number] 934-0) Status (test code = RETURNED FROM ISSUE 15100613) Blood Bank Product (test RED BLOOD CELLS code = 2263) PRODUCT CODE (test code = E0609M40 933-2) [facility] [id number] 23:54:00 Test Item Value Reference Range Interpretation Comments CROSSMATCH (test code = COMPATIBLE 2264) Unit ABO (test code = O Pos 0971780) UNIT NUMBER (test code = [id number] 934-0) Status (test code = RETURNED FROM ISSUE 4807889) Blood Bank Product (test RED BLOOD CELLS code = 2263) PRODUCT CODE (test code = V7827G90 933-2) [facility] [id number] 23:54:00 Test Item Value Reference Range Interpretation Comments CROSSMATCH (test code = COMPATIBLE 2264) Unit ABO (test code = O Pos 4836657) UNIT NUMBER (test code = [id number] 934-0) Status (test code = RETURNED FROM ISSUE 15100613) Blood Bank Product (test RED BLOOD CELLS code = 2263) PRODUCT CODE (test code = W9177J86 933-2) [facility] [id number] 23:54:00 Test Item Value Reference Range Interpretation Comments CROSSMATCH (test code = COMPATIBLE 2264) Unit ABO (test code = O Pos 1011838) UNIT NUMBER (test code = [id number] 934-0) Status (test code = RETURNED FROM ISSUE 15100613) Blood Bank Product (test RED BLOOD CELLS code = 2263) PRODUCT CODE (test code = N9941X45 933-2) [facility] [id number] 23:54:00 Test Item Value Reference Range Interpretation Comments CROSSMATCH (test code = COMPATIBLE 2264) Unit ABO (test code = O Pos 7644744) UNIT NUMBER (test code = [id number] 934-0) Status (test code = RETURNED FROM ISSUE 15100613) Blood Bank Product (test RED BLOOD CELLS code = 2263) PRODUCT CODE (test code = M9485H53 933-2) [facility] [id number] 23:54:00 Test Item Value Reference Range Interpretation Comments CROSSMATCH (test code = COMPATIBLE 2264) Unit ABO (test code = O Pos 1138817) UNIT NUMBER (test code = [id number] 934-0) Status (test code = RETURNED FROM ISSUE 15100613) Blood Bank Product (test RED BLOOD CELLS code = 2263) PRODUCT CODE (test code = J8314Y92 933-2) [facility] [id number] 23:54:00 Test Item Value Reference Range Interpretation Comments CROSSMATCH (test code = COMPATIBLE 2264) Unit ABO (test code = O Pos 4492211) UNIT NUMBER (test code = [id number] 934-0) Status (test code = RETURNED FROM ISSUE 15100613) Blood Bank Product (test RED BLOOD CELLS code = 2263) PRODUCT CODE (test code = L6339L46 933-2) [facility] [id number] 23:54:00 Test Item Value Reference Range Interpretation Comments CROSSMATCH (test code = COMPATIBLE 2264) Unit ABO (test code = O Pos 6966850) UNIT NUMBER (test code = [id number] 934-0) Status (test code = RETURNED FROM ISSUE 15100613) Blood Bank Product (test RED BLOOD CELLS code = 2263) PRODUCT CODE (test code = I2246R25 933-2) [facility] [id number] 23:54:00 Test Item Value Reference Range Interpretation Comments CROSSMATCH (test code = COMPATIBLE 2264) Unit ABO (test code = O Pos 1562029) UNIT NUMBER (test code = [id number] 934-0) Status (test code = RETURNED FROM ISSUE 15100613) Blood Bank Product (test RED BLOOD CELLS code = 2263) PRODUCT CODE (test code = H5825P27 933-2) [facility] [id number] 23:54:00 Test Item Value Reference Range Interpretation Comments CROSSMATCH (test code = COMPATIBLE 2264) Unit ABO (test code = O Pos 5611479) UNIT NUMBER (test code = [id number] 934-0) Status (test code = RETURNED FROM ISSUE 15100613) Blood Bank Product (test RED BLOOD CELLS code = 2263) PRODUCT CODE (test code = W0904A58 933-2) [facility] [id number] 23:54:00 Test Item Value Reference Range Interpretation Comments CROSSMATCH (test code = COMPATIBLE 2264) Unit ABO (test code = O Pos 6272385) UNIT NUMBER (test code = [id number] 934-0) Status (test code = RETURNED FROM ISSUE 15100613) Blood Bank Product (test RED BLOOD CELLS code = 2263) PRODUCT CODE (test code = K3449Y24 933-2) [facility] [id number] 23:54:00 Test Item Value Reference Range Interpretation Comments CROSSMATCH (test code = COMPATIBLE 2264) Unit ABO (test code = O Pos 8097564) UNIT NUMBER (test code = [id number] 934-0) Status (test code = RETURNED FROM ISSUE 9030076) Blood Bank Product (test RED BLOOD CELLS code = 2263) PRODUCT CODE (test code = L8927N23 933-2) [facility] [id number] 23:54:00 Test Item Value Reference Range Interpretation Comments CROSSMATCH (test code = COMPATIBLE 2264) Unit ABO (test code = O Pos 4422749) UNIT NUMBER (test code = [id number] 934-0) Status (test code = RETURNED FROM ISSUE 9153528) Blood Bank Product (test RED BLOOD CELLS code = 2263) PRODUCT CODE (test code = S0032X91 933-2) [facility] [id number] 22:04:29 Test Item Value Reference Range Interpretation [...] S NOT APPLICABLE FOR DIALYSIS PATIEN TS. Control Technician ID - [id number] 22:03:41 Test Item Value Reference Range Interpretation Comments PHOSPHORUS (BEAKER) (test code = 4.3 mg/dL 2.3-4.7 604) Control Technician ID - BLMTWOCOKTY0588-14-09 22:03:40 Test Item Value Reference Range Interpretation Comments MAGNESIUM (BEAKER) (test code = 2.2 mg/dL 1.6-2.6 627) Control Technician ID - DBpSaurabh, bmmhftog9213-27-37 21:40:14 Test Item Value Reference Range Interpretation Comments pH, Arterial (test code = 2744-1) 7.37 7.35-7.45 Lab Interpretation (test code = Normal 84920-7) [facility]2022-03-18 21:40:14 Test Item Value Reference Range Interpretation Comments pH, Arterial (test code = 2744-1) 7.37 7.35-7.45 Lab Interpretation (test code = Normal 56329-5) [facility]2022-03-18 21:40:14 Test Item Value Reference Range Interpretation Comments pH, Arterial (test code = 2744-1) 7.37 7.35-7.45 Lab Interpretation (test code = Normal 86516-8) [facility]2022-03-18 21:40:14 Test Item Value Reference Range Interpretation Comments pH, Arterial (test code = 2744-1) 7.37 7.35-7.45 Lab Interpretation (test code = Normal 10485-6) [facility]2022-03-18 21:40:14 Test Item Value Reference Range Interpretation Comments pH, Arterial (test code = 2744-1) 7.37 7.35-7.45 Lab Interpretation (test code = Normal 64277-8) [facility]2022-03-18 21:40:14 Test Item Value Reference Range Interpretation Comments pH, Arterial (test code = 2744-1) 7.37 7.35-7.45 Lab Interpretation (test code = Normal 22541-0) [facility]2022-03-18 21:40:14 Test Item Value Reference Range Interpretation Comments pH, Arterial (test code = 2744-1) 7.37 7.35-7.45 Lab Interpretation (test code = Normal 48313-3) [facility]2022-03-18 21:40:14 Test Item Value Reference Range Interpretation Comments pH, Arterial (test code = 2744-1) 7.37 7.35-7.45 Lab Interpretation (test code = Normal 30181-4) [facility] [id number] 21:40:14 Test Item Value Reference Range Interpretation Comments pH, Arterial (test code = 2744-1) 7.37 7.35-7.45 Lab Interpretation (test code = Normal 37590-9) [facility]2022-03-18 21:40:14 Test Item Value Reference Range Interpretation Comments pH, Arterial (test code = 2744-1) 7.37 7.35-7.45 Lab Interpretation (test code = Normal 24331-2) [facility]2022-03-18 21:40:14 Test Item Value Reference Range Interpretation Comments pH, Arterial (test code = 2744-1) 7.37 7.35-7.45 Lab Interpretation (test code = Normal 53627-3) [facility]2022-03-18 21:40:14 Test Item Value Reference Range Interpretation Comments pH, Arterial (test code = 2744-1) 7.37 7.35-7.45 Lab Interpretation (test code = Normal 79321-4) [facility]2022-03-18 21:40:14 Test Item Value Reference Range Interpretation Comments pH, Arterial (test code = 2744-1) 7.37 7.35-7.45 Lab Interpretation (test code = Normal 33252-9) [facility]2022-03-18 21:40:14 Test Item Value Reference Range Interpretation Comments pH, Arterial (test code = 2744-1) 7.37 7.35-7.45 Lab Interpretation (test code = Normal 53026-2) [facility]2022-03-18 21:40:14 Test Item Value Reference Range Interpretation Comments pH, Arterial (test code = 2744-1) 7.37 7.35-7.45 Lab Interpretation (test code = Normal 54004-8) [facility]2022-03-18 21:40:14 Test Item Value Reference Range Interpretation Comments pH, Arterial (test code = 2744-1) 7.37 7.35-7.45 Lab Interpretation (test code = Normal 22947-1) [facility] [id number] 21:40:14 Test Item Value Reference Range Interpretation Comments pH, Arterial (test code = 2744-1) 7.37 7.35-7.45 Lab Interpretation (test code = Normal 32034-4) [facility] [id number] 21:40:14 Test Item Value Reference Range Interpretation Comments pH, Arterial (test code = 2744-1) 7.37 7.35-7.45 Lab Interpretation (test code = Normal 26162-6) [facility], [id number] 21:40:14 Test Item Value Reference Range Interpretation Comments PH ARTERIAL (BEAKER) (test code = 383) 7.37 7.35-7.45 POCT-GLUCOSE [id number] 18:07:04 Test Item Value Reference Range Interpretation Comments POC-GLUCOSE METER 208 mg/dL 70-110 H : TESTED A T [facility] 6720 (BEAKER) (test code = [place], 1538) 23304: Control Technician/Techni kelle ID = [id number] for Chilo Mccarty BLOOD GAS, [id number] 12:45:46 Test Item Value Reference Range Interpretation [...] (test code = 1819) 36.0 BLOOD GAS, [id number] 11:23:57 Test Item Value Reference Range Interpretation [...] FIO2 (BEAKER) (test code = 1819) 40.0 [id number] 09:37:11 Test Item Value Reference Range Interpretation Comments Scan Result (test code = See scanned report [id number]) BRANDI (test code = BRANDI) See scanned report [place] [id number] 09:37:11 Test Item Value Reference Range Interpretation Comments Scan Result (test code = See scanned report [id number]) BRANDI (test code = BRANDI) See scanned report [place] 44737022-03-18 09:37:11 Test Item Value Reference Range Interpretation Comments Scan Result (test code = See scanned report [id number]) BRANDI (test code = BRANDI) See scanned report [place] 44737022-03-18 09:37:11 Test Item Value Reference Range Interpretation Comments Scan Result (test code = See scanned report [id number]) BRANDI (test code = BRANDI) See scanned report [place] 44737022-03-18 09:37:11 Test Item Value Reference Range Interpretation Comments Scan Result (test code = See scanned report [id number]) BRANDI (test code = BRANDI) See scanned report [place] [address]-03-18 09:37:11 Test Item Value Reference Range Interpretation Comments Scan Result (test code = See scanned report [id number]) BRANDI (test code = BRANDI) See scanned report [place] 074732-03-18 09:37:11 Test Item Value Reference Range Interpretation Comments Scan Result (test code = See scanned report [id number]) BRANDI (test code = BRANDI) See scanned report [place] [address]-03-18 09:37:11 Test Item Value Reference Range Interpretation Comments Scan Result (test code = See scanned report [id number]) BRANDI (test code = BRANDI) See scanned report [place] [address]-03-18 09:37:11 Test Item Value Reference Range Interpretation Comments Scan Result (test code = See scanned report [id number]) BRANDI (test code = BRANDI) See scanned report [place] [address]-03-18 09:37:11 Test Item Value Reference Range Interpretation Comments Scan Result (test code = See scanned report [id number]) BRANDI (test code = BRANDI) See scanned report [place] [address]-03-18 09:37:11 Test Item Value Reference Range Interpretation Comments Scan Result (test code = See scanned report [id number]) BRANDI (test code = BRANDI) See scanned report [place] [address]-03-18 09:37:11 Test Item Value Reference Range Interpretation Comments Scan Result (test code = See scanned report [id number]) BRANDI (test code = BRANDI) See scanned report [place] [address]-03-18 09:37:11 Test Item Value Reference Range Interpretation Comments Scan Result (test code = See scanned report [id number]) BRANDI (test code = BRANDI) See scanned report [place] [address]-03-18 09:37:11 Test Item Value Reference Range Interpretation Comments Scan Result (test code = See scanned report [id number]) BRANDI (test code = BRANDI) See scanned report [place] [address]-03-18 09:37:11 Test Item Value Reference Range Interpretation Comments Scan Result (test code = See scanned report [id number]) BRANDI (test code = BRANDI) See scanned report [address]03-18 09:37:11 Test Item Value Reference Range Interpretation Comments Scan Result (test code = See scanned report [id number]) BRANDI (test code = BRANDI) See scanned report [address]03-18 09:37:11 Test Item Value Reference Range Interpretation Comments Scan Result (test code = See scanned report [id number]) BRANDI (test code = BRANDI) See scanned report [place] [address]-03-18 09:37:11 Test Item Value Reference Range Interpretation Comments Scan Result (test code = See scanned report [id number]) BRANDI (test code = BRANDI) See scanned report [facility] [id number] 09:37:11 Test Item Value Reference Range Interpretation Comments SCAN RESULT (test code = See scanned report [id number]) See scanned reportPOCT-GLUCOSE [id number] 08:52:16 Test Item Value Reference Range Interpretation Comments POC-GLUCOSE METER 165 mg/dL 70-110 H : TESTED A T [facility] 6720 (BEAKER) (test code = [place], 1538) 27597: Control Technician/Techni kelle ID = [id number] for Chilo Mccarty RAD, CHEST, 1 VIEW, NON [id number] 04:10:00Reason for exam:->post-opShould this be performed at the bedside?->Yes [facility] : 1955 Sex: FFINAL REPORT RAD, CHEST, 1 VIEW, NON DEPT INDICATION: post-op COMPARISON: Prior day's exam FINDINGS: Portable frontal view of the chest. IMPRESSION: Support Lines: Stable Lungs and pleura: Unchanged central venous congestion. No new consolidation or effusion. No pneumothorax. Heart and mediastinum: Stable contours. Additional findings: None. Signed: Andrew Cary Verified Date/Time: 06/19/2021 04:10:04 BASIC METABOLIC [id number] 03:27:20 Test Item Value Reference Range Interpretation [...] S NOT APPLICABLE FOR DIALYSIS PATIEN TS. Control Technician ID - RAKAN [id number] 03:26:39 Test Item Value Reference Range Interpretation Comments MAGNESIUM (BEAKER) (test code = 2.4 mg/dL 1.6-2.6 627) Control Technician ID - RAKAN [id number] 03:26:39 Test Item Value Reference Range Interpretation Comments PHOSPHORUS (BEAKER) (test code = 4.8 mg/dL 2.3-4.7 H 604) Control Technician ID Bassam RAKAN [id number] 03:02:29 Test Item Value Reference Range Interpretation Comments PARTIAL THROMBOPLASTIN TIME 35.4 seconds 22.5-36.0 (BEAKER) (test code = 760) PROTHROMBIN [id number] 03:01:50 Test Item Value Reference Range Interpretation Comments PROTIME (BEAKER) 16.0 seconds 11.9-14.2 H (test code = 759) INR (BEAKER) (test 1.31 See_Comment [Automat ed message] code = 370) The system [employer] generated this result transmitted ref erence range: [...] 0-0 (test code = 413) OXYGEN SATURATION, [id number] 02:28:43 Test Item Value Reference Range Interpretation Comments O2 SATURATION (MEASURED) (BEAKER) 79.3 % (test code = 1455) BLOOD GAS, [id number] 02:25:53 Test Item Value Reference Range Interpretation [...] (BEAKER) (test code = 1819) 40.0 POCT-GLUCOSE [id number] 00:06:42 Test Item Value Reference Range Interpretation Comments POC-GLUCOSE METER 88 mg/dL 70-110 : TESTED A T [facility] 6720 (BEAKER) (test code = [facility], 1538) 65994: Control Technician/Techni kelle ID = [id number] for JUGU ILON (V), ERICK POCT-GLUCOSE [id number] 23:14:53 Test Item Value Reference Range Interpretation Comments POC-GLUCOSE METER 91 mg/dL 70-110 : TESTED A T [facility] 6720 (BEAKER) (test code = [facility], 1538) 16125: Control Technician/Techni kelle ID = [id number] for JUGU ILON (V), ERICK POCT-GLUCOSE [id number] 21:30:27 Test Item Value Reference Range Interpretation Comments POC-GLUCOSE METER 128 mg/dL 70-110 H : TESTED A T [facility] 6720 (BEAKER) (test code = [facility], 1538) 28754: Control Technician/Techni kelle ID = [id number] for JU GUILON (V), ERICK POCT-GLUCOSE [id number] 19:05:18 Test Item Value Reference Range Interpretation Comments POC-GLUCOSE METER 165 mg/dL 70-110 H : TESTED A T [facility] 6720 (BEAKER) (test code = [facility], 1538) 01935: Control Technician/Techni kelle ID = [id number] for DEIDRE BURRELL, JESMI BASIC METABOLIC [id number] 18:47:16 Test Item Value Reference Range Interpretation [...] S NOT APPLICABLE FOR DIALYSIS PATIEN TS. Control Technician ID - HIEN [id number] 18:44:55 Test Item Value Reference Range Interpretation Comments MAGNESIUM (BEAKER) (test code = 2.5 mg/dL 1.6-2.6 627) Control Technician ID - HIEN [id number] 18:44:55 Test Item Value Reference Range Interpretation Comments PHOSPHORUS (BEAKER) (test code = 4.7 mg/dL 2.3-4.7 604) Control Technician ID - HIEN MBLOOD GAS, [id number] 18:43:01 Test Item Value Reference Range Interpretation [...] (test code = 1819) 60.0 OXYGEN SATURATION, [id number] 18:40:36 Test Item Value Reference Range Interpretation Comments O2 SATURATION (MEASURED) (BEAKER) 90.5 % (test code = 1455) Lactic Acid, [id number] 18:40:35 Test Item Value Reference Range Interpretation Comments Lactate, Art (test code = 2.1 mmol/L 0.5-2.2 2874) BRANDI (test code = BRANDI) Control Technician ID - HIEN M Lab Interpretation (test Normal code = 37119-8) [facility], [id number] 18:40:35 Test Item Value Reference Range Interpretation Comments Lactate, Art (test code = 2.1 mmol/L 0.5-2.2 2874) BRANDI (test code = BRANDI) Control Technician ID - HIEN Lab Interpretation (test Normal code = 23309-4) [facility], [id number] 18:40:35 Test Item Value Reference Range Interpretation Comments Lactate, Art (test code = 2.1 mmol/L 0.5-2.2 2874) BRANDI (test code = BRANDI) Control Technician ID - HIEN Lab Interpretation (test Normal code = 26641-6) [facility], [id number] 18:40:35 Test Item Value Reference Range Interpretation Comments Lactate, Art (test code = 2.1 mmol/L 0.5-2.2 2874) BRANDI (test code = BRANDI) Control Technician ID - HIEN M Lab Interpretation (test Normal code = 18885-2) [facility], [id number] 18:40:35 Test Item Value Reference Range Interpretation Comments Lactate, Art (test code = 2.1 mmol/L 0.5-2.2 2874) BRANDI (test code = BRANDI) Control Technician ID - HIEN M Lab Interpretation (test Normal code = 52521-5) [facility], [id number] 18:40:35 Test Item Value Reference Range Interpretation Comments Lactate, Art (test code = 2.1 mmol/L 0.5-2.2 2874) BRANDI (test code = BRANDI) Control Technician ID - HIEN M Lab Interpretation (test Normal code = 55059-9) [facility], [id number] 18:40:35 Test Item Value Reference Range Interpretation Comments Lactate, Art (test code = 2.1 mmol/L 0.5-2.2 2874) BRANDI (test code = BRANDI) Control Technician ID - HIEN M Lab Interpretation (test Normal code = 36092-5) [facility], [id number] 18:40:35 Test Item Value Reference Range Interpretation Comments Lactate, Art (test code = 2.1 mmol/L 0.5-2.2 2874) BRANDI (test code = BRANDI) Control Technician ID - HIEN Lab Interpretation (test Normal code = 59217-2) [facility], [id number] 18:40:35 Test Item Value Reference Range Interpretation Comments Lactate, Art (test code = 2.1 mmol/L 0.5-2.2 2874) BRANDI (test code = BRANDI) Control Technician ID - [facility] Lab Interpretation (test Normal code = 24842-6) [facility], [id number] 18:40:35 Test Item Value Reference Range Interpretation Comments Lactate, Art (test code = 2.1 mmol/L 0.5-2.2 2874) BRANDI (test code = BRANDI) Control Technician ID - HIEN Lab Interpretation (test Normal code = 08206-9) [facility], [id number] 18:40:35 Test Item Value Reference Range Interpretation Comments Lactate, Art (test code = 2.1 mmol/L 0.5-2.2 2874) BRANDI (test code = BRANDI) Control Technician ID - HIEN Lab Interpretation (test Normal code = 95837-6) [facility], [id number] 18:40:35 Test Item Value Reference Range Interpretation Comments Lactate, Art (test code = 2.1 mmol/L 0.5-2.2 2874) BRANDI (test code = BRANDI) Control Technician ID - HIEN Lab Interpretation (test Normal code = 73856-7) [facility], [id number] 18:40:35 Test Item Value Reference Range Interpretation Comments Lactate, Art (test code = 2.1 mmol/L 0.5-2.2 2874) BRANDI (test code = BRANDI) Control Technician ID - HIEN M Lab Interpretation (test Normal code = 22914-8) [facility], [id number] 18:40:35 Test Item Value Reference Range Interpretation Comments Lactate, Art (test code = 2.1 mmol/L 0.5-2.2 2874) BRANDI (test code = BRANDI) Control Technician ID - HIEN M Lab Interpretation (test Normal code = 43655-2) [facility], [id number] 18:40:35 Test Item Value Reference Range Interpretation Comments Lactate, Art (test code = 2.1 mmol/L 0.5-2.2 2874) BRANDI (test code = BRANDI) Control Technician ID - HIEN Lab Interpretation (test Normal code = 33058-3) [facility], [id number] 18:40:35 Test Item Value Reference Range Interpretation Comments Lactate, Art (test code = 2.1 mmol/L 0.5-2.2 2874) BRANDI (test code = BRANDI) Control Technician ID - HIEN Lab Interpretation (test Normal code = 74013-2) [facility], [id number] 18:40:35 Test Item Value Reference Range Interpretation Comments Lactate, Art (test code = 2.1 mmol/L 0.5-2.2 2874) BRANDI (test code = BRANDI) Control Technician ID - HIEN M Lab Interpretation (test Normal code = 90381-4) [facility], [id number] 18:40:35 Test Item Value Reference Range Interpretation Comments Lactate, Art (test code = 2.1 mmol/L 0.5-2.2 2874) BRANDI (test code = BRANDI) Control Technician ID - HIEN M Lab Interpretation (test Normal code = 04573-1) [facility] HospitalLACTIC ACID, [id number] 18:40:35 Test Item Value Reference Range Interpretation Comments LACTATE BLOOD ARTERIAL (2) 2.1 mmol/L 0.5-2.2 (BEAKER) (test code = 2874) Control Technician ID - HIEN [id number] 18:38:33 Test Item Value Reference Range Interpretation Comments PARTIAL THROMBOPLASTIN TIME 37.2 seconds 22.5-36.0 H (BEAKER) (test code = 760) PROTHROMBIN [id number] 18:37:33 Test Item Value Reference Range Interpretation Comments PROTIME (BEAKER) 16.6 seconds 11.9-14.2 H (test code = 759) INR (BEAKER) (test 1.37 See_Comment [Automat ed message] code = 370) The system [employer] generated this result transmitted ref erence range: [...] 0-0 (test code = 413) HGB/HCT (H&H)-Stat [id number] 16:13:19 Test Item Value Reference Range Interpretation Comments Hemoglobin (test code = 10.6 See_Comment L [Au tomated message] 786-4) The system [employer] generated this result transmitted ref erence range: 12.0 - 1 5.0 GM/DL. The refe rence range was not u sed to interpret this result as normal/abnor mal. Hematocrit (test code = 31.0 % 36.0-45.0 L 4544-3) Lab Interpretation (test Abnormal code = 35737-6) [facility] [id number] 16:13:19 Test Item Value Reference Range Interpretation Comments Hemoglobin (test code = 10.6 See_Comment L [Au tomated message] 786-4) The system [employer] generated this result transmitted ref erence range: 12.0 - 1 5.0 GM/DL. The refe rence range was not u sed to interpret this result as normal/abnor mal. Hematocrit (test code = 31.0 % 36.0-45.0 L 4544-3) Lab Interpretation (test Abnormal code = 64302-4) [facility] [id number] 16:13:19 Test Item Value Reference Range Interpretation Comments Hemoglobin (test code = 10.6 See_Comment L [Au tomated message] 786-4) The system [employer] generated this result transmitted ref erence range: 12.0 - 1 5.0 GM/DL. The refe rence range was not u sed to interpret this result as normal/abnor mal. Hematocrit (test code = 31.0 % 36.0-45.0 L 4544-3) Lab Interpretation (test Abnormal code = 26859-1) [facility]Stat [id number] 16:13:19 Test Item Value Reference Range Interpretation Comments Hemoglobin (test code = 10.6 See_Comment L [Au tomated message] 786-4) The system [employer] generated this result transmitted ref erence range: 12.0 - 1 5.0 GM/DL. The refe rence range was not u sed to interpret this result as normal/abnor mal. Hematocrit (test code = 31.0 % 36.0-45.0 L 4544-3) Lab Interpretation (test Abnormal code = 29250-0) [facility]Stat [id number] 16:13:19 Test Item Value Reference Range Interpretation Comments Hemoglobin (test code = 10.6 See_Comment L [Au tomated message] 786-4) The system [employer] generated this result transmitted ref erence range: 12.0 - 1 5.0 GM/DL. The refe rence range was not u sed to interpret this result as normal/abnor mal. Hematocrit (test code = 31.0 % 36.0-45.0 L 4544-3) Lab Interpretation (test Abnormal code = 84144-1) [facility]Stat [id number] 16:13:19 Test Item Value Reference Range Interpretation Comments Hemoglobin (test code = 10.6 See_Comment L [Au tomated message] 786-4) The system [employer] generated this result transmitted ref erence range: 12.0 - 1 5.0 GM/DL. The refe rence range was not u sed to interpret this result as normal/abnor mal. Hematocrit (test code = 31.0 % 36.0-45.0 L 4544-3) Lab Interpretation (test Abnormal code = 62559-9) [facility]Stat [id number] 16:13:19 Test Item Value Reference Range Interpretation Comments Hemoglobin (test code = 10.6 See_Comment L [Au tomated message] 786-4) The system [employer] generated this result transmitted ref erence range: 12.0 - 1 5.0 GM/DL. The refe rence range was not u sed to interpret this result as normal/abnor mal. Hematocrit (test code = 31.0 % 36.0-45.0 L 4544-3) Lab Interpretation (test Abnormal code = 01616-0) [facility]Stat [id number] 16:13:19 Test Item Value Reference Range Interpretation Comments Hemoglobin (test code = 10.6 See_Comment L [Au tomated message] 786-4) The system [employer] generated this result transmitted ref erence range: 12.0 - 1 5.0 GM/DL. The refe rence range was not u sed to interpret this result as normal/abnor mal. Hematocrit (test code = 31.0 % 36.0-45.0 L 4544-3) Lab Interpretation (test Abnormal code = 37805-6) [facility]Stat [id number] 16:13:19 Test Item Value Reference Range Interpretation Comments Hemoglobin (test code = 10.6 See_Comment L [Au tomated message] 786-4) The system [employer] generated this result transmitted ref erence range: 12.0 - 1 5.0 GM/DL. The refe rence range was not u sed to interpret this result as normal/abnor mal. Hematocrit (test code = 31.0 % 36.0-45.0 L 4544-3) Lab Interpretation (test Abnormal code = 35837-3) [facility]Stat [id number] 16:13:19 Test Item Value Reference Range Interpretation Comments Hemoglobin (test code = 10.6 See_Comment L [Au tomated message] 786-4) The system [employer] generated this result transmitted ref erence range: 12.0 - 1 5.0 GM/DL. The refe rence range was not u sed to interpret this result as normal/abnor mal. Hematocrit (test code = 31.0 % 36.0-45.0 L 4544-3) Lab Interpretation (test Abnormal code = 23732-8) [facility]Stat [id number] 16:13:19 Test Item Value Reference Range Interpretation Comments Hemoglobin (test code = 10.6 See_Comment L [Au tomated message] 786-4) The system [employer] generated this result transmitted ref erence range: 12.0 - 1 5.0 GM/DL. The refe rence range was not u sed to interpret this result as normal/abnor mal. Hematocrit (test code = 31.0 % 36.0-45.0 L 4544-3) Lab Interpretation (test Abnormal code = 17174-1) [facility]Stat [id number] 16:13:19 Test Item Value Reference Range Interpretation Comments Hemoglobin (test code = 10.6 See_Comment L [Au tomated message] 786-4) The system [employer] generated this result transmitted ref erence range: 12.0 - 1 5.0 GM/DL. The refe rence range was not u sed to interpret this result as normal/abnor mal. Hematocrit (test code = 31.0 % 36.0-45.0 L 4544-3) Lab Interpretation (test Abnormal code = 25697-5) [facility]Stat [id number] 16:13:19 Test Item Value Reference Range Interpretation Comments Hemoglobin (test code = 10.6 See_Comment L [Au tomated message] 786-4) The system [employer] generated this result transmitted ref erence range: 12.0 - 1 5.0 GM/DL. The refe rence range was not u sed to interpret this result as normal/abnor mal. Hematocrit (test code = 31.0 % 36.0-45.0 L 4544-3) Lab Interpretation (test Abnormal code = 81402-9) [facility]Stat [id number] 16:13:19 Test Item Value Reference Range Interpretation Comments Hemoglobin (test code = 10.6 See_Comment L [Au tomated message] 786-4) The system [employer] generated this result transmitted ref erence range: 12.0 - 1 5.0 GM/DL. The refe rence range was not u sed to interpret this result as normal/abnor mal. Hematocrit (test code = 31.0 % 36.0-45.0 L 4544-3) Lab Interpretation (test Abnormal code = 76950-7) [facility]Stat [id number] 16:13:19 Test Item Value Reference Range Interpretation Comments Hemoglobin (test code = 10.6 See_Comment L [Au tomated message] 786-4) The system [employer] generated this result transmitted ref erence range: 12.0 - 1 5.0 GM/DL. The refe rence range was not u sed to interpret this result as normal/abnor mal. Hematocrit (test code = 31.0 % 36.0-45.0 L 4544-3) Lab Interpretation (test Abnormal code = 68943-1) [facility]Stat [id number] 16:13:19 Test Item Value Reference Range Interpretation Comments Hemoglobin (test code = 10.6 See_Comment L [Au tomated message] 786-4) The system [employer] generated this result transmitted ref erence range: 12.0 - 1 5.0 GM/DL. The refe rence range was not u sed to interpret this result as normal/abnor mal. Hematocrit (test code = 31.0 % 36.0-45.0 L 4544-3) Lab Interpretation (test Abnormal code = 29485-0) [facility]Stat [id number] 16:13:19 Test Item Value Reference Range Interpretation Comments Hemoglobin (test code = 10.6 See_Comment L [Au tomated message] 786-4) The system [employer] generated this result transmitted ref erence range: 12.0 - 1 5.0 GM/DL. The refe rence range was not u sed to interpret this result as normal/abnor mal. Hematocrit (test code = 31.0 % 36.0-45.0 L 4544-3) Lab Interpretation (test Abnormal code = 77757-9) [facility] [id number] 16:13:19 Test Item Value Reference Range Interpretation Comments Hemoglobin (test code = 10.6 See_Comment L [Au tomated message] 786-4) The system [employer] generated this result transmitted ref erence range: 12.0 - 1 5.0 GM/DL. The refe rence range was not u sed to interpret this result as normal/abnor mal. Hematocrit (test code = 31.0 % 36.0-45.0 L 4544-3) Lab Interpretation (test Abnormal code = 79816-2) [facility] - [facility] [id number] 16:13:19 Test Item Value Reference Range Interpretation Comments HEMOGLOBIN (BEAKER) (test code = 10.6 GM/DL 12.0-15.0 L 410) HEMATOCRIT (BEAKER) (test code = 31.0 % 36.0-45.0 L 411) Glucose-Stat [id number] 16:13:18 Test Item Value Reference Range Interpretation Comments Glucose (test code = 2345-7) 205 mg/dL 70-110 H Lab Interpretation (test code = Abnormal 76517-6) [facility] [id number] 16:13:18 Test Item Value Reference Range Interpretation Comments Sodium (test code = 2951-2) 134 meq/L 136-145 L Lab Interpretation (test code = Abnormal 25403-4) [facility] [id number] 16:13:18 Test Item Value Reference Range Interpretation Comments Glucose (test code = 2345-7) 205 mg/dL 70-110 H Lab Interpretation (test code = Abnormal 92795-7) [facility] [id number] 16:13:18 Test Item Value Reference Range Interpretation Comments Sodium (test code = 2951-2) 134 meq/L 136-145 L Lab Interpretation (test code = Abnormal 37778-4) [facility] [id number] 16:13:18 Test Item Value Reference Range Interpretation Comments Glucose (test code = 2345-7) 205 mg/dL 70-110 H Lab Interpretation (test code = Abnormal 55372-8) [facility] [id number] 16:13:18 Test Item Value Reference Range Interpretation Comments Sodium (test code = 2951-2) 134 meq/L 136-145 L Lab Interpretation (test code = Abnormal 80465-9) [facility] [id number] 16:13:18 Test Item Value Reference Range Interpretation Comments Glucose (test code = 2345-7) 205 mg/dL 70-110 H Lab Interpretation (test code = Abnormal 02975-8) [facility]Stat [id number] 16:13:18 Test Item Value Reference Range Interpretation Comments Sodium (test code = 2951-2) 134 meq/L 136-145 L Lab Interpretation (test code = Abnormal 99130-8) [facility] [id number] 16:13:18 Test Item Value Reference Range Interpretation Comments Glucose (test code = 2345-7) 205 mg/dL 70-110 H Lab Interpretation (test code = Abnormal 38204-8) [facility] Na-Stat [id number] 16:13:18 Test Item Value Reference Range Interpretation Comments Sodium (test code = 2951-2) 134 meq/L 136-145 L Lab Interpretation (test code = Abnormal 58913-6) [facility] [id number] 16:13:18 Test Item Value Reference Range Interpretation Comments Glucose (test code = 2345-7) 205 mg/dL 70-110 H Lab Interpretation (test code = Abnormal 90380-7) [facility] [id number] 16:13:18 Test Item Value Reference Range Interpretation Comments Sodium (test code = 2951-2) 134 meq/L 136-145 L Lab Interpretation (test code = Abnormal 84122-3) [facility] [id number] 16:13:18 Test Item Value Reference Range Interpretation Comments Glucose (test code = 2345-7) 205 mg/dL 70-110 H Lab Interpretation (test code = Abnormal 59570-9) [facility]Stat [id number] 16:13:18 Test Item Value Reference Range Interpretation Comments Sodium (test code = 2951-2) 134 meq/L 136-145 L Lab Interpretation (test code = Abnormal 20088-0) [facility] [id number] 16:13:18 Test Item Value Reference Range Interpretation Comments Glucose (test code = 2345-7) 205 mg/dL 70-110 H Lab Interpretation (test code = Abnormal 72134-9) [facility]Stat [id number] 16:13:18 Test Item Value Reference Range Interpretation Comments Sodium (test code = 2951-2) 134 meq/L 136-145 L Lab Interpretation (test code = Abnormal 66651-2) [facility] [id number] 16:13:18 Test Item Value Reference Range Interpretation Comments Glucose (test code = 2345-7) 205 mg/dL 70-110 H Lab Interpretation (test code = Abnormal 54203-9) [facility]Stat [id number] 16:13:18 Test Item Value Reference Range Interpretation Comments Sodium (test code = 2951-2) 134 meq/L 136-145 L Lab Interpretation (test code = Abnormal 83528-1) [facility] [id number] 16:13:18 Test Item Value Reference Range Interpretation Comments Glucose (test code = 2345-7) 205 mg/dL 70-110 H Lab Interpretation (test code = Abnormal 77141-5) [facility] [id number] 16:13:18 Test Item Value Reference Range Interpretation Comments Sodium (test code = 2951-2) 134 meq/L 136-145 L Lab Interpretation (test code = Abnormal 45931-1) [facility] [id number] 16:13:18 Test Item Value Reference Range Interpretation Comments Glucose (test code = 2345-7) 205 mg/dL 70-110 H Lab Interpretation (test code = Abnormal 60839-8) [facility] [id number] 16:13:18 Test Item Value Reference Range Interpretation Comments Sodium (test code = 2951-2) 134 meq/L 136-145 L Lab Interpretation (test code = Abnormal 42696-3) [facility] [id number] 16:13:18 Test Item Value Reference Range Interpretation Comments Glucose (test code = 2345-7) 205 mg/dL 70-110 H Lab Interpretation (test code = Abnormal 13946-0) [facility]Stat [id number] 16:13:18 Test Item Value Reference Range Interpretation Comments Sodium (test code = 2951-2) 134 meq/L 136-145 L Lab Interpretation (test code = Abnormal 84263-9) [facility] [id number] 16:13:18 Test Item Value Reference Range Interpretation Comments Glucose (test code = 2345-7) 205 mg/dL 70-110 H Lab Interpretation (test code = Abnormal 08057-2) [facility] [id number] 16:13:18 Test Item Value Reference Range Interpretation Comments Sodium (test code = 2951-2) 134 meq/L 136-145 L Lab Interpretation (test code = Abnormal 00990-0) [facility] [id number] 16:13:18 Test Item Value Reference Range Interpretation Comments Glucose (test code = 2345-7) 205 mg/dL 70-110 H Lab Interpretation (test code = Abnormal 76253-7) [facility] [id number] 16:13:18 Test Item Value Reference Range Interpretation Comments Sodium (test code = 2951-2) 134 meq/L 136-145 L Lab Interpretation (test code = Abnormal 69861-9) [facility] [id number] 16:13:18 Test Item Value Reference Range Interpretation Comments Glucose (test code = 2345-7) 205 mg/dL 70-110 H Lab Interpretation (test code = Abnormal 56444-6) [facility]Stat [id number] 16:13:18 Test Item Value Reference Range Interpretation Comments Sodium (test code = 2951-2) 134 meq/L 136-145 L Lab Interpretation (test code = Abnormal 34792-0) [facility] [id number] 16:13:18 Test Item Value Reference Range Interpretation Comments Glucose (test code = 2345-7) 205 mg/dL 70-110 H Lab Interpretation (test code = Abnormal 31222-6) [facility] [id number] 16:13:18 Test Item Value Reference Range Interpretation Comments Sodium (test code = 2951-2) 134 meq/L 136-145 L Lab Interpretation (test code = Abnormal 96893-8) [facility] [id number] 16:13:18 Test Item Value Reference Range Interpretation Comments Glucose (test code = 2345-7) 205 mg/dL 70-110 H Lab Interpretation (test code = Abnormal 99620-4) [facility] [id number] 16:13:18 Test Item Value Reference Range Interpretation Comments Sodium (test code = 2951-2) 134 meq/L 136-145 L Lab Interpretation (test code = Abnormal 44434-1) [facility] [id number] 16:13:18 Test Item Value Reference Range Interpretation Comments Glucose (test code = 2345-7) 205 mg/dL 70-110 H Lab Interpretation (test code = Abnormal 84883-8) [facility] [id number] 16:13:18 Test Item Value Reference Range Interpretation Comments Sodium (test code = 2951-2) 134 meq/L 136-145 L Lab Interpretation (test code = Abnormal 99943-0) [facility] [id number] 16:13:18 Test Item Value Reference Range Interpretation Comments SODIUM (BEAKER) (test code = 381) 134 meq/L 136-145 L GLUCOSE-STAT [id number] 16:13:18 Test Item Value Reference Range Interpretation Comments GLUCOSE RANDOM (BEAKER) (test code 205 mg/dL 70-110 H = 652) BLOOD GAS, [id number] 16:13:17 Test Item Value Reference Range Interpretation [...] (BEAKER) (test code = 1819) 60.0 Potassium-Stat [id number] 16:11:46 Test Item Value Reference Range Interpretation Comments Potassium (test code = 2823-3) 4.5 meq/L 3.6-5.5 Lab Interpretation (test code = Normal 55755-0) [facility] [id number] 16:11:46 Test Item Value Reference Range Interpretation Comments Potassium (test code = 2823-3) 4.5 meq/L 3.6-5.5 Lab Interpretation (test code = Normal 54133-5) [facility] [id number] 16:11:46 Test Item Value Reference Range Interpretation Comments Potassium (test code = 2823-3) 4.5 meq/L 3.6-5.5 Lab Interpretation (test code = Normal 58771-5) [facility] [id number] 16:11:46 Test Item Value Reference Range Interpretation Comments Potassium (test code = 2823-3) 4.5 meq/L 3.6-5.5 Lab Interpretation (test code = Normal 22609-3) [facility] [id number] 16:11:46 Test Item Value Reference Range Interpretation Comments Potassium (test code = 2823-3) 4.5 meq/L 3.6-5.5 Lab Interpretation (test code = Normal 63383-9) [facility] [id number] 16:11:46 Test Item Value Reference Range Interpretation Comments Potassium (test code = 2823-3) 4.5 meq/L 3.6-5.5 Lab Interpretation (test code = Normal 63874-1) [facility] [id number] 16:11:46 Test Item Value Reference Range Interpretation Comments Potassium (test code = 2823-3) 4.5 meq/L 3.6-5.5 Lab Interpretation (test code = Normal 98838-3) [facility] [id number] 16:11:46 Test Item Value Reference Range Interpretation Comments Potassium (test code = 2823-3) 4.5 meq/L 3.6-5.5 Lab Interpretation (test code = Normal 84997-8) [facility] [id number] 16:11:46 Test Item Value Reference Range Interpretation Comments Potassium (test code = 2823-3) 4.5 meq/L 3.6-5.5 Lab Interpretation (test code = Normal 52994-5) [facility] [id number] 16:11:46 Test Item Value Reference Range Interpretation Comments Potassium (test code = 2823-3) 4.5 meq/L 3.6-5.5 Lab Interpretation (test code = Normal 40206-8) [facility] [id number] 16:11:46 Test Item Value Reference Range Interpretation Comments Potassium (test code = 2823-3) 4.5 meq/L 3.6-5.5 Lab Interpretation (test code = Normal 11772-8) [facility] [id number] 16:11:46 Test Item Value Reference Range Interpretation Comments Potassium (test code = 2823-3) 4.5 meq/L 3.6-5.5 Lab Interpretation (test code = Normal 35280-7) [facility] [id number] 16:11:46 Test Item Value Reference Range Interpretation Comments Potassium (test code = 2823-3) 4.5 meq/L 3.6-5.5 Lab Interpretation (test code = Normal 29231-9) [facility] [id number] 16:11:46 Test Item Value Reference Range Interpretation Comments Potassium (test code = 2823-3) 4.5 meq/L 3.6-5.5 Lab Interpretation (test code = Normal 63894-3) [facility] [id number] 16:11:46 Test Item Value Reference Range Interpretation Comments Potassium (test code = 2823-3) 4.5 meq/L 3.6-5.5 Lab Interpretation (test code = Normal 56318-8) [facility] [id number] 16:11:46 Test Item Value Reference Range Interpretation Comments Potassium (test code = 2823-3) 4.5 meq/L 3.6-5.5 Lab Interpretation (test code = Normal 42593-6) [facility] [id number] 16:11:46 Test Item Value Reference Range Interpretation Comments Potassium (test code = 2823-3) 4.5 meq/L 3.6-5.5 Lab Interpretation (test code = Normal 86728-7) [facility] [id number] 16:11:46 Test Item Value Reference Range Interpretation Comments Potassium (test code = 2823-3) 4.5 meq/L 3.6-5.5 Lab Interpretation (test code = Normal 50787-5) [facility] [id number] 16:11:46 Test Item Value Reference Range Interpretation Comments POTASSIUM (BEAKER) (test code = 4.5 meq/L 3.6-5.5 379) CALCIUM, [id number] 16:11:08 Test Item Value Reference Range Interpretation Comments CALCIUM IONIZED (BEAKER) (test 1.16 mmol/L 1.12-1.27 code = 698) PH, BLOOD (BEAKER) (test code = 7.44 1810) Manual Ccaksdschebs1636-12-26 16:00:23 Test Item Value Reference Range Interpretation [...] Poikilocytes (test code = 1+ few 966) [place] Cells (test code = 1+ few 474) Artifact (test code = Present 3432) Platelet Conc (test code Decreased = 3438) BRANDI (test code = BRANDI) Control Technician ID - Liza Lu comments: Slide comments: Lab Interpretation (test Abnormal code = 25510-0) [facility] Omvqofbckuvb7612-95-44 16:00:23 Test Item Value Reference Range Interpretation [...] = 3438) BRANDI (test code = BRANDI) Control Technician ID - Liza Lu comments: Slide comments: Lab Interpretation (test Abnormal code = 32929-3) [facility] Calwinqrwyqw5741-99-38 16:00:23 Test Item Value Reference Range Interpretation [...] Poikilocytes (test code = 1+ few 966) [place] Cells (test code = 1+ few 474) Artifact (test code = Present 3432) Platelet Conc (test code Decreased = 3438) BRANDI (test code = BRANDI) Control Technician ID - Liza Lu comments: Slide comments: Lab Interpretation (test Abnormal code = 58109-0) [facility] Sxtpredbxydn7961-01-20 16:00:23 Test Item Value Reference Range Interpretation [...] Poikilocytes (test code = 1+ few 966) [place] Cells (test code = 1+ few 474) Artifact (test code = Present 3432) Platelet Conc (test code Decreased = 3438) BRANDI (test code = BRANDI) Control Technician ID - Liza Lu comments: Slide comments: Lab Interpretation (test Abnormal code = 67175-2) [facility] Wxtoubidwuji4772-96-10 16:00:23 Test Item Value Reference Range Interpretation [...] = 3438) BRANDI (test code = BRANDI) Control Technician ID - Liza Lu comments: Slide comments: Lab Interpretation (test Abnormal code = 77882-3) [facility] Xjdlfuggddiy7998-52-24 16:00:23 Test Item Value Reference Range Interpretation [...] = 3438) BRANDI (test code = BRANDI) Control Technician ID - Liza Lu comments: Slide comments: Lab Interpretation (test Abnormal code = 26014-0) [facility] Kuryxnlmpwsd1523-86-41 16:00:23 Test Item Value Reference Range Interpretation [...] Poikilocytes (test code = 1+ few 966) [place] Cells (test code = 1+ few 474) Artifact (test code = Present 3432) Platelet Conc (test code Decreased = 3438) BRANDI (test code = BRANDI) Control Technician ID - Liza Lu comments: Slide comments: Lab Interpretation (test Abnormal code = 23399-7) [facility] Ytnjiupadxqr3294-70-27 16:00:23 Test Item Value Reference Range Interpretation [...] = 3438) BRANDI (test code = BRANDI) Control Technician ID - Liza Tabitha comments: Slide comments: Lab Interpretation (test Abnormal code = 07302-1) [facility] Kblkplpuzrip8421-04-25 16:00:23 Test Item Value Reference Range Interpretation [...] = 3438) BRANDI (test code = BRANDI) Control Technician ID - Liza Lu comments: Slide comments: Lab Interpretation (test Abnormal code = 45128-1) [facility] Wtuckbaktjjo0298-33-87 16:00:23 Test Item Value Reference Range Interpretation [...] Poikilocytes (test code = 1+ few 966) [place] Cells (test code = 1+ few 474) Artifact (test code = Present 3432) Platelet Conc (test code Decreased = 3438) BRANDI (test code = BRANDI) Control Technician ID - Liza Lu comments: Slide comments: Lab Interpretation (test Abnormal code = 28731-2) [facility] Vmsnmhnmwqbr2651-61-45 16:00:23 Test Item Value Reference Range Interpretation [...] = 3438) BRANDI (test code = BRANDI) Control Technician ID - Liza Lu comments: Slide comments: Lab Interpretation (test Abnormal code = 93470-3) [facility] Kfhaabdnnins9950-77-30 16:00:23 Test Item Value Reference Range Interpretation [...] = 3438) BRANDI (test code = BRANDI) Control Technician ID - Liza Lu comments: Slide comments: Lab Interpretation (test Abnormal code = 17834-9) [facility] Svtrqfxeqejf2216-12-26 16:00:23 Test Item Value Reference Range Interpretation [...] = 3438) BRANDI (test code = BRANDI) Control Technician ID - Liza Lu comments: Slide comments: Lab Interpretation (test Abnormal code = 22838-3) [facility] Vwepehncshvw4606-17-12 16:00:23 Test Item Value Reference Range Interpretation [...] = 3438) BRANDI (test code = BRANDI) Control Technician ID - Liza Lu comments: Slide comments: Lab Interpretation (test Abnormal code = 93356-0) [facility] Tauzxguvmsrb5142-29-96 16:00:23 Test Item Value Reference Range Interpretation [...] = 3438) BRANDI (test code = BRANDI) Control Technician ID - Liza Lu comments: Slide comments: Lab Interpretation (test Abnormal code = 15729-1) [facility] Hofbrshnergd8873-92-21 16:00:23 Test Item Value Reference Range Interpretation [...] = 3438) BRANDI (test code = BRANDI) Control Technician ID - Liza Lu comments: Slide comments: Lab Interpretation (test Abnormal code = 72478-6) [facility] Gdjqzjjmvjfa0745-22-15 16:00:23 Test Item Value Reference Range Interpretation [...] = 3438) BRANDI (test code = BRANDI) Control Technician ID - Liza Lu comments: Slide comments: Lab Interpretation (test Abnormal code = 73686-3) [facility] Yppxvubyywdy5454-47-74 16:00:23 Test Item Value Reference Range Interpretation [...] Poikilocytes (test code = 1+ few 966) [place] Cells (test code = 1+ few 474) Artifact (test code = Present 3432) Platelet Conc (test code Decreased = 3438) BRANDI (test code = BRANDI) Control Technician ID - Liza Lu comments: Slide comments: Lab Interpretation (test Abnormal code = 60428-3) [facility](CELLAVISION MANUAL DIFF)2021-06-18 16:00:23 Test Item Value [...] CONCENTRATION Decreased (CELLAVISION)(BEAKER) (test code = 3438) Control Technician ID - Liza Tabitha comments: Slide comments:RAD, CHEST, 1 VIEW, NON [id number] 15:58:00Reason for exam:->Post-opShould this be performed at the bedside?->Yes [facility] : 1955 Sex: FFINAL REPORT CHEST AP PORTABLE COMPARISON STUDY: 06/10/2021 History provided: Postopevaluation ET tube in place with tip midway between clavicles and marlon. NG tip in the stomach. Right jugular Keller-Blayne catheter with tip in the right main pulmonary artery. Chest tubes with no pneumothorax. Mild right basilar atelectasis with trace right pleural effusion. Lungs otherwise grossly clear and vascularity normal. Signed: Wero Alvarez MDReport Verified Date/Time: 06/18/2021 15:58:54 Reading Location: [facility] Diagnostic Imaging Reading Room - [facility] 1.310.12 C METABOLIC [id number] 15:57:50 Test Item Value Reference Range Interpretation [...] S NOT APPLICABLE FOR DIALYSIS PATIEN TS. Control Technician ID - HIEN JSdhsbgdre-NNEQ6586-83-17 15:57:19 Test Item Value Reference Range Interpretation Comments Potassium (test code = 2823-3) 4.8 meq/L 3.5-5.1 Lab Interpretation (test code = Normal 21627-6) [facility]-YVAN2601-74-07 15:57:19 Test Item Value Reference Range Interpretation Comments Potassium (test code = 2823-3) 4.8 meq/L 3.5-5.1 Lab Interpretation (test code = Normal 64659-6) [facility]-HXTZ4079-64-32 15:57:19 Test Item Value Reference Range Interpretation Comments Potassium (test code = 2823-3) 4.8 meq/L 3.5-5.1 Lab Interpretation (test code = Normal 45617-7) [facility]IT2046-91-38 15:57:19 Test Item Value Reference Range Interpretation Comments Potassium (test code = 2823-3) 4.8 meq/L 3.5-5.1 Lab Interpretation (test code = Normal 32195-2) [facility] HollywoodQDPM1285-92-70 15:57:19 Test Item Value Reference Range Interpretation Comments Potassium (test code = 2823-3) 4.8 meq/L 3.5-5.1 Lab Interpretation (test code = Normal 50057-2) [facility] HollywoodJHLT0324-06-31 15:57:19 Test Item Value Reference Range Interpretation Comments Potassium (test code = 2823-3) 4.8 meq/L 3.5-5.1 Lab Interpretation (test code = Normal 52219-3) [facility]2022-03-17 15:57:19 Test Item Value Reference Range Interpretation Comments Potassium (test code = 2823-3) 4.8 meq/L 3.5-5.1 Lab Interpretation (test code = Normal 80073-2) [facility]2022-03-17 15:57:19 Test Item Value Reference Range Interpretation Comments Potassium (test code = 2823-3) 4.8 meq/L 3.5-5.1 Lab Interpretation (test code = Normal 50987-6) [facility]2022-03-17 15:57:19 Test Item Value Reference Range Interpretation Comments Potassium (test code = 2823-3) 4.8 meq/L 3.5-5.1 Lab Interpretation (test code = Normal 32948-7) [facility] HollywoodRMOJ7038-45-33 15:57:19 Test Item Value Reference Range Interpretation Comments Potassium (test code = 2823-3) 4.8 meq/L 3.5-5.1 Lab Interpretation (test code = Normal 11261-1) [facility] HollywoodQPDE9445-41-34 15:57:19 Test Item Value Reference Range Interpretation Comments Potassium (test code = 2823-3) 4.8 meq/L 3.5-5.1 Lab Interpretation (test code = Normal 50323-1) [facility]KTBI6727-61-32 15:57:19 Test Item Value Reference Range Interpretation Comments Potassium (test code = 2823-3) 4.8 meq/L 3.5-5.1 Lab Interpretation (test code = Normal 98192-9) [facility]-NFOG1776-53-04 15:57:19 Test Item Value Reference Range Interpretation Comments Potassium (test code = 2823-3) 4.8 meq/L 3.5-5.1 Lab Interpretation (test code = Normal 62166-2) [facility]-KHQR0205-04-11 15:57:19 Test Item Value Reference Range Interpretation Comments Potassium (test code = 2823-3) 4.8 meq/L 3.5-5.1 Lab Interpretation (test code = Normal 22563-7) [facility]-AALT2910-08-08 15:57:19 Test Item Value Reference Range Interpretation Comments Potassium (test code = 2823-3) 4.8 meq/L 3.5-5.1 Lab Interpretation (test code = Normal 42320-1) [facility]-KLQD0007-93-27 15:57:19 Test Item Value Reference Range Interpretation Comments Potassium (test code = 2823-3) 4.8 meq/L 3.5-5.1 Lab Interpretation (test code = Normal 50966-7) [facility]-UMLL9139-34-23 15:57:19 Test Item Value Reference Range Interpretation Comments Potassium (test code = 2823-3) 4.8 meq/L 3.5-5.1 Lab Interpretation (test code = Normal 92755-7) [facility]DWIX0200-49-78 15:57:19 Test Item Value Reference Range Interpretation Comments Potassium (test code = 2823-3) 4.8 meq/L 3.5-5.1 Lab Interpretation (test code = Normal 65272-4) [facility] 15:57:19 Test Item Value Reference Range Interpretation Comments POTASSIUM (BEAKER) (test code = 4.8 meq/L 3.5-5.1 379) [id number] 15:57:19 Test Item Value Reference Range Interpretation Comments PHOSPHORUS (BEAKER) (test code = 4.9 mg/dL 2.3-4.7 H 604) Control Technician ID - HIEN MKYSFUFAME2998-29-44 15:57:18 Test Item Value Reference Range Interpretation Comments MAGNESIUM (BEAKER) (test code = 2.6 mg/dL 1.6-2.6 627) Control Technician ID - HIEN MPrepare cggquj8127-76-25 15:44:00 Test Item Value Reference Range Interpretation Comments Unit ABO (test code = O Neg 5412374) UNIT NUMBER (test code = [id number] 934-0) Status (test code = RETURNED FROM ISSUE 15100613) Blood Bank Product (test FFP code = 2263) PRODUCT CODE (test code = Z9128V20 933-2) [facility] nypsoc3353-92-99 15:44:00 Test Item Value Reference Range Interpretation Comments Unit ABO (test code = O Neg 3935788) UNIT NUMBER (test code = [id number] 934-0) Status (test code = RETURNED FROM ISSUE 15100613) Blood Bank Product (test FFP code = 2263) PRODUCT CODE (test code = L2285L57 933-2) [facility] aftdft8215-06-33 15:44:00 Test Item Value Reference Range Interpretation Comments Unit ABO (test code = O Neg 8095493) UNIT NUMBER (test code = [id number] 934-0) Status (test code = RETURNED FROM ISSUE 8397102) Blood Bank Product (test FFP code = 2263) PRODUCT CODE (test code = S8052X96 933-2) [facility] [id number] 15:44:00 Test Item Value Reference Range Interpretation Comments Unit ABO (test code = O Neg 6881319) UNIT NUMBER (test code = [id number] 934-0) Status (test code = RETURNED FROM ISSUE 1320241) Blood Bank Product (test FFP code = 2263) PRODUCT CODE (test code = A9172A23 933-2) [facility] canjgo4700-81-40 15:44:00 Test Item Value Reference Range Interpretation Comments Unit ABO (test code = O Neg 1678012) UNIT NUMBER (test code = [id number] 934-0) Status (test code = RETURNED FROM ISSUE 3881290) Blood Bank Product (test FFP code = 2263) PRODUCT CODE (test code = T0237F97 933-2) [facility] rrgcqd4073-55-56 15:44:00 Test Item Value Reference Range Interpretation Comments Unit ABO (test code = O Neg 7226465) UNIT NUMBER (test code = [id number] 934-0) Status (test code = RETURNED FROM ISSUE 0356703) Blood Bank Product (test FFP code = 2263) PRODUCT CODE (test code = X4633U98 933-2) [facility] ysykjc1356-99-14 15:44:00 Test Item Value Reference Range Interpretation Comments Unit ABO (test code = O Neg 0281124) UNIT NUMBER (test code = [id number] 934-0) Status (test code = RETURNED FROM ISSUE 7368411) Blood Bank Product (test FFP code = 2263) PRODUCT CODE (test code = F5588C33 933-2) [facility] [id number] 15:44:00 Test Item Value Reference Range Interpretation Comments Unit ABO (test code = O Neg 5827334) UNIT NUMBER (test code = [id number] 934-0) Status (test code = RETURNED FROM ISSUE 7884868) Blood Bank Product (test FFP code = 2263) PRODUCT CODE (test code = G5119G34 933-2) [facility] sbqsbu3504-96-75 15:44:00 Test Item Value Reference Range Interpretation Comments Unit ABO (test code = O Neg 4088819) UNIT NUMBER (test code = [id number] 934-0) Status (test code = RETURNED FROM ISSUE 9053023) Blood Bank Product (test FFP code = 2263) PRODUCT CODE (test code = O6410E21 933-2) [facility] hjluga3562-37-26 15:44:00 Test Item Value Reference Range Interpretation Comments Unit ABO (test code = O Neg 7451209) UNIT NUMBER (test code = [id number] 934-0) Status (test code = RETURNED FROM ISSUE 7979581) Blood Bank Product (test FFP code = 2263) PRODUCT CODE (test code = E7428C27 933-2) [facility] wggyht6616-59-15 15:44:00 Test Item Value Reference Range Interpretation Comments Unit ABO (test code = O Neg 3587786) UNIT NUMBER (test code = [id number] 934-0) Status (test code = RETURNED FROM ISSUE 2882937) Blood Bank Product (test FFP code = 2263) PRODUCT CODE (test code = P8029F79 933-2) [facility] bcsuts8727-48-40 15:44:00 Test Item Value Reference Range Interpretation Comments Unit ABO (test code = O Neg 3190096) UNIT NUMBER (test code = [id number] 934-0) Status (test code = RETURNED FROM ISSUE 9559340) Blood Bank Product (test FFP code = 2263) PRODUCT CODE (test code = A9011K76 933-2) [facility] qvwfur5498-52-73 15:44:00 Test Item Value Reference Range Interpretation Comments Unit ABO (test code = O Neg 1511689) UNIT NUMBER (test code = [id number] 934-0) Status (test code = RETURNED FROM ISSUE 1803282) Blood Bank Product (test FFP code = 2263) PRODUCT CODE (test code = X1837B00 933-2) [facility] djarlt9122-95-85 15:44:00 Test Item Value Reference Range Interpretation Comments Unit ABO (test code = O Neg 1155338) UNIT NUMBER (test code = [id number] 934-0) Status (test code = RETURNED FROM ISSUE 7614729) Blood Bank Product (test FFP code = 2263) PRODUCT CODE (test code = L9887W42 933-2) [facility] yelqhr0520-50-30 15:44:00 Test Item Value Reference Range Interpretation Comments Unit ABO (test code = O Neg 6693859) UNIT NUMBER (test code = [id number] 934-0) Status (test code = RETURNED FROM ISSUE 5136592) Blood Bank Product (test FFP code = 2263) PRODUCT CODE (test code = S2450Z36 933-2) [facility] olktsw2172-62-87 15:44:00 Test Item Value Reference Range Interpretation Comments Unit ABO (test code = O Neg 2330787) UNIT NUMBER (test code = [id number] 934-0) Status (test code = RETURNED FROM ISSUE 15100613) Blood Bank Product (test FFP code = 2263) PRODUCT CODE (test code = X9493Z49 933-2) [facility] yhztcp1459-69-05 15:44:00 Test Item Value Reference Range Interpretation Comments Unit ABO (test code = O Neg 3428011) UNIT NUMBER (test code = [id number] 934-0) Status (test code = RETURNED FROM ISSUE 15100613) Blood Bank Product (test FFP code = 2263) PRODUCT CODE (test code = T7006C74 933-2) [facility] bvbpin9472-10-38 15:44:00 Test Item Value Reference Range Interpretation Comments Unit ABO (test code = O Neg 4302707) UNIT NUMBER (test code = [id number] 934-0) Status (test code = RETURNED FROM ISSUE 15100613) Blood Bank Product (test FFP code = 2263) PRODUCT CODE (test code = K3276Z78 933-2) [facility] 15:32:33 Test Item Value Reference Range Interpretation Comments PARTIAL THROMBOPLASTIN TIME 37.6 seconds 22.5-36.0 H (BEAKER) (test code = 760) PROTHROMBIN TIME/[id number] 15:31:52 Test Item Value Reference Range Interpretation Comments PROTIME (BEAKER) 17.9 seconds 11.9-14.2 H (test code = 759) INR (BEAKER) (test 1.50 See_Comment [Automat ed message] code = 370) The system [employer] generated this result transmitted ref erence range: <=5.90. The reference range was not used to int erpret this result as normal/abnormal . RECOMMENDED COUMADIN/WARFARIN INR THERAPY RANGESSTANDARD DOSE: 2.0 - 3.0 Includes: PROPHYLAXIS for venous thrombosis, systemic embolization; TREATMENT for venous thrombosis and/or pulmonary embolus.HIGH RISK: Target INR is 2.5-3.5 for patients with mechanical heart valves.CBC with platelet count + automated qilt2418-31-77 15:24:09 Test Item Value Reference Range Interpretation Comments WBC (test code = 6690-2) 16.2 See_Comment H [A utomated message] The system [employer] generated this result transmitted ref erence range: 3.5 - 10 .5 K/L. The refe rence range was not u sed to interpret this result as normal/abnor mal. RBC (test code = 789-8) 3.33 See_Comment L [Au tomated message] The system [employer] generated this result transmitted ref erence range: 3.93 - 5 .22 M/L. The refe rence range was not u sed to interpret this result as normal/abnor mal. MCHC (test code = 786-4) 31.8 See_Comment L [A utomated message] The system [employer] generated this result transmitted ref erence range: [...] L [Aut omated message] 777-3) The system [employer] generated this result transmitted ref erence range: 150 - 45 0 K/CU MM. The referen ce range was not u sed to interpret this result as normal/abnor mal. MPV (test code = 10.3 fL 9.4-12.3 67498-2) nRBC (test code = 413) 0 See_Comment [Aut omated message] The system [employer] generated this result transmitted ref erence range: 0 - 0 /1 00 WBC. The refere nce range was not u sed to interpret this result as normal/abnor mal. Lab Interpretation (test Abnormal code = 85332-1) [facility] with platelet count + automated [id number] 15:24:09 Test Item Value Reference Range Interpretation Comments WBC (test code = 6690-2) 16.2 See_Comment H [A utomated message] The system [employer] generated this result transmitted ref erence range: 3.5 - 10 .5 K/L. The refe rence range was not u sed to interpret this result as normal/abnor mal. RBC (test code = 789-8) 3.33 See_Comment L [Au tomated message] The system [employer] generated this result transmitted ref erence range: 3.93 - 5 .22 M/L. The refe rence range was not u sed to interpret this result as normal/abnor mal. MCHC (test code = 786-4) 31.8 See_Comment L [A utomated message] The system [employer] generated this result transmitted ref erence range: [...] L [Aut omated message] 777-3) The system [employer] generated this result transmitted ref erence range: 150 - 45 0 K/CU MM. The referen ce range was not u sed to interpret this result as normal/abnor mal. MPV (test code = 10.3 fL 9.4-12.3 78856-3) nRBC (test code = 413) 0 See_Comment [Aut omated message] The system [employer] generated this result transmitted ref erence range: 0 - 0 /1 00 WBC. The refere nce range was not u sed to interpret this result as normal/abnor mal. Lab Interpretation (test Abnormal code = 28054-3) [facility] & AUTO [id number] 15:24:09 Test Item Value Reference Range Interpretation [...] (BEAKER) (test code = 413) Hemoglobin and cjasjivkrr8293-85-18 15:23:11 Test Item Value Reference Range Interpretation Comments Hemoglobin (test code = 10.0 See_Comment L [Au tomated message] 786-4) The system [employer] generated this result transmitted ref erence range: 11.2 - 1 5.7 GM/DL. The refe rence range was not u sed to interpret this result as normal/abnor mal. Hematocrit (test code = 31.4 % 34.1-44.9 L 4544-3) Lab Interpretation (test Abnormal code = 99313-8) [facility] [id number] 15:23:11 Test Item Value Reference Range Interpretation Comments HEMOGLOBIN (BEAKER) (test code = 10.0 GM/DL 11.2-15.7 L 410) HEMATOCRIT (BEAKER) (test code = 31.4 % 34.1-44.9 L 411) BLOOD GAS, [id number] 15:19:54 Test Item Value Reference Range Interpretation [...] = 1819) 75.0 HGB/HCT (H&H) - STAT [id number] 15:19:53 Test Item Value Reference Range Interpretation Comments HEMOGLOBIN (BEAKER) (test code = 10.6 GM/DL 12.0-15.0 L 410) HEMATOCRIT (BEAKER) (test code = 31.0 % 36.0-45.0 L 411) GLUCOSE-STAT [id number] 15:19:46 Test Item Value Reference Range Interpretation Comments GLUCOSE RANDOM (BEAKER) (test code 200 mg/dL 70-110 H = 652) OXYGEN SATURATION, [id number] 15:18:32 Test Item Value Reference Range Interpretation Comments O2 SATURATION (MEASURED) (BEAKER) 83.4 % (test code = 1455) POTASSIUM-STAT [id number] 15:18:10 Test Item Value Reference Range Interpretation Comments POTASSIUM (BEAKER) (test code = 4.5 meq/L 3.6-5.5 379) SODIUM NA-STAT [id number] 15:18:09 Test Item Value Reference Range Interpretation Comments SODIUM (BEAKER) (test code = 381) 136 meq/L 136-145 CALCIUM, [id number] 15:18:08 Test Item Value Reference Range Interpretation Comments CALCIUM IONIZED (BEAKER) (test 1.14 mmol/L 1.12-1.27 code = 698) PH, BLOOD (BEAKER) (test code = 7.39 1810) POC ACTIVATED CLOTTING [id number] 14:20:47 Test Item Value Reference Range Interpretation Comments Activated Clotting Time 130 sec : 74 -137 seconds, (test code = 441) Baseline: TESTED AT [address], [address]: Control Technician/Techni kelle ID = [id number] for Me ndoza, Rocky [facility] ACTIVATED CLOTTING [id number] 14:20:47 Test Item Value Reference Range Interpretation Comments Activated Clotting Time 130 sec : 74 -137 seconds, (test code = 441) Baseline: TESTED AT [address], [address]: Control Technician/Techni kelle ID = [id number] for Me ndoza, Rocky [facility] ACTIVATED CLOTTING [id number] 14:20:47 Test Item Value Reference Range Interpretation Comments Activated Clotting Time 130 sec : 74 -137 seconds, (test code = 441) Baseline: TESTED AT [address], [address]: Control Technician/Techni kelle ID = [id number] for Me ndoza, Rocky [facility] ACTIVATED CLOTTING [id number] 14:20:47 Test Item Value Reference Range Interpretation Comments Activated Clotting Time 130 sec : 74 -137 seconds, (test code = 441) Baseline: TESTED AT [address], [address]: Control Technician/Techni kelle ID = [id number] for Me ndoza, Rocky [facility] ACTIVATED CLOTTING [id number] 14:20:47 Test Item Value Reference Range Interpretation Comments Activated Clotting Time 130 sec : 74 -137 seconds, (test code = 441) Baseline: TESTED AT [address], [address]: Control Technician/Techni kelle ID = [id number] for Me ndoza, Rocky [facility] ACTIVATED CLOTTING [id number] 14:20:47 Test Item Value Reference Range Interpretation Comments Activated Clotting Time 130 sec : 74 -137 seconds, (test code = 441) Baseline: TESTED AT [address], [address]: Control Technician/Techni kelle ID = [id number] for Me ndoza, Rocky [facility] ACTIVATED CLOTTING [id number] 14:20:47 Test Item Value Reference Range Interpretation Comments Activated Clotting Time 130 sec : 74 -137 seconds, (test code = 441) Baseline: TESTED AT [address], [address]: Control Technician/Techni kelle ID = [id number] for Me ndoza, Rocky [facility] ACTIVATED CLOTTING [id number] 14:20:47 Test Item Value Reference Range Interpretation Comments Activated Clotting Time 130 sec : 74 -137 seconds, (test code = 441) Baseline: TESTED AT [address], [address]: Control Technician/Techni kelle ID = [id number] for Me ndoza, Rocky [facility] ACTIVATED CLOTTING [id number] 14:20:47 Test Item Value Reference Range Interpretation Comments Activated Clotting Time 130 sec : 74 -137 seconds, (test code = 441) Baseline: TESTED AT [address], [address]: Control Technician/Techni kelle ID = [id number] for Me ndoza, Rocky [facility] ACTIVATED CLOTTING [id number] 14:20:47 Test Item Value Reference Range Interpretation Comments Activated Clotting Time 130 sec : 74 -137 seconds, (test code = 441) Baseline: TESTED AT [address], [address]: Control Technician/Techni kelle ID = [id number] for Me ndoza, Rocky [facility] ACTIVATED CLOTTING [id number] 14:20:47 Test Item Value Reference Range Interpretation Comments Activated Clotting Time 130 sec : 74 -137 seconds, (test code = 441) Baseline: TESTED AT [address], [address]: Control Technician/Techni kelle ID = [id number] for Me ndoza, Rocky [facility] ACTIVATED CLOTTING [id number] 14:20:47 Test Item Value Reference Range Interpretation Comments Activated Clotting Time 130 sec : 74 -137 seconds, (test code = 441) Baseline: TESTED AT [address], [address]: Control Technician/Techni kelle ID = [id number] for Me ndoza, Rocky [facility] ACTIVATED CLOTTING [id number] 14:20:47 Test Item Value Reference Range Interpretation Comments Activated Clotting Time 130 sec : 74 -137 seconds, (test code = 3184-9) Baselin e: TESTED AT [address], [address]: Control Technician/Techni kelle ID = [id number] for Me ndoza, Rocky [facility] ACTIVATED CLOTTING [id number] 14:20:47 Test Item Value Reference Range Interpretation Comments Activated Clotting Time 130 sec : 74 -137 seconds, (test code = 3184-9) Baselin e: TESTED AT [address], [address]: Control Technician/Techni kelle ID = [id number] for Me ndoza, Rocky [facility] ACTIVATED CLOTTING [id number] 14:20:47 Test Item Value Reference Range Interpretation Comments Activated Clotting Time 130 sec : 74 -137 seconds, (test code = 3184-9) Baselin e: TESTED AT [address], [address]: Control Technician/Techni kelle ID = [id number] for Me ndoza, Rocky [facility] ACTIVATED CLOTTING [id number] 14:20:47 Test Item Value Reference Range Interpretation Comments Activated Clotting Time 130 sec : 74 -137 seconds, (test code = 3184-9) Baselin e: TESTED AT [address], [address]: Control Technician/Techni kelle ID = [id number] for Me ndoza, Rocky [facility] ACTIVATED CLOTTING [id number] 14:20:47 Test Item Value Reference Range Interpretation Comments Activated Clotting Time 130 sec : 74 -137 seconds, (test code = 441) Baseline: TESTED AT [address], [address]: Control Technician/Techni kelle ID = [id number] for Me ndoza, Rocky [facility] ACTIVATED CLOTTING [id number] 14:20:47 Test Item Value Reference Range Interpretation Comments Activated Clotting Time 130 sec : 74 -137 seconds, (test code = 441) Baseline: TESTED AT [address], [address]: Control Technician/Techni kelle ID = [id number] for ndoza, Rocky [id number] 14:20:47 Test Item Value Reference Range Interpretation Comments ACTIVATED CLOTTING TIME 130 sec : 74 -137 seconds, (BEAKER) (test code = Baseli ne: TESTED AT 441) [address], [address]: Control Technician/Techni kelle ID = [id number] for ndoza, Rocky [id number]-[id number] 14:20:46 Test Item Value Reference Range Interpretation Comments ACTIVATED CLOTTING TIME 577 sec : 74 -137 seconds, (BEAKER) (test code = Baseli ne: TESTED AT 441) [address], [facility] 30: Control Technician/Techni kelle ID = [id number] for ndoza, Rocky [id number]-[id number] 14:20:45 Test Item Value Reference Range Interpretation Comments ACTIVATED CLOTTING TIME 743 sec : 74 -137 seconds, (BEAKER) (test code = Baseli ne: TESTED AT 441) [address], [address]: Control Technician/Techni kelle ID = [id number] for Me ndoza, Rocky [id number]-[id number] 14:20:45 Test Item Value Reference Range Interpretation Comments ACTIVATED CLOTTING TIME 618 sec : 74 -137 seconds, (BEAKER) (test code = Baseli ne: TESTED AT 441) [address], [address]: Control Technician/Techni kelle ID = [id number] for ndoza, Rocky [id number] 14:20:44 Test Item Value Reference Range Interpretation Comments ACTIVATED CLOTTING TIME 547 sec : 74 -137 seconds, (BEAKER) (test code = Baseli ne: TESTED AT 441) [address], [address]: Control Technician/Techni kelle ID = [id number] for Me ndoza, Rocky KOPM-[id number] 14:20:12 Test Item Value Reference Range Interpretation Comments ACTIVATED CLOTTING TIME 809 sec : 74 -137 seconds, (BEAKER) (test code = Baseli ne: TESTED AT 441) [address], [facility] 30: Control Technician/Techni kelle ID = [id number] for Me ndoza, Rocky [id number] 13:49:05 Test Item Value Reference Range Interpretation Comments PARTIAL THROMBOPLASTIN TIME 38.3 seconds 22.5-36.0 H (BEAKER) (test code = 760) [id number] 13:48:43 Test Item Value Reference Range Interpretation Comments Fibrinogen (test code = 3255-7) 246 mg/dl 225-434 Lab Interpretation (test code = Normal 84005-5) [facility] 13:48:43 Test Item Value Reference Range Interpretation Comments Fibrinogen (test code = 3255-7) 246 mg/dl 225-434 Lab Interpretation (test code = Normal 33411-7) [facility] 13:48:43 Test Item Value Reference Range Interpretation Comments Fibrinogen (test code = 3255-7) 246 mg/dl 225-434 Lab Interpretation (test code = Normal 33311-5) [facility] 13:48:43 Test Item Value Reference Range Interpretation Comments Fibrinogen (test code = 3255-7) 246 mg/dl 225-434 Lab Interpretation (test code = Normal 14623-3) [facility] 13:48:43 Test Item Value Reference Range Interpretation Comments Fibrinogen (test code = 3255-7) 246 mg/dl 225-434 Lab Interpretation (test code = Normal 42433-4) [facility] 13:48:43 Test Item Value Reference Range Interpretation Comments Fibrinogen (test code = 3255-7) 246 mg/dl 225-434 Lab Interpretation (test code = Normal 93064-4) [facility] 13:48:43 Test Item Value Reference Range Interpretation Comments Fibrinogen (test code = 3255-7) 246 mg/dl 225-434 Lab Interpretation (test code = Normal 13568-3) [facility] 13:48:43 Test Item Value Reference Range Interpretation Comments Fibrinogen (test code = 3255-7) 246 mg/dl 225-434 Lab Interpretation (test code = Normal 60236-9) [place] 585692-03-17 13:48:43 Test Item Value Reference Range Interpretation Comments Fibrinogen (test code = 3255-7) 246 mg/dl 225-434 Lab Interpretation (test code = Normal 22263-3) [place] 585692-03-17 13:48:43 Test Item Value Reference Range Interpretation Comments Fibrinogen (test code = 3255-7) 246 mg/dl 225-434 Lab Interpretation (test code = Normal 84485-4) [facility]2022-03-17 13:48:43 Test Item Value Reference Range Interpretation Comments Fibrinogen (test code = 3255-7) 246 mg/dl 225-434 Lab Interpretation (test code = Normal 31928-9) [place] 585692-03-17 13:48:43 Test Item Value Reference Range Interpretation Comments Fibrinogen (test code = 3255-7) 246 mg/dl 225-434 Lab Interpretation (test code = Normal 02920-4) [facility]2022-03-17 13:48:43 Test Item Value Reference Range Interpretation Comments Fibrinogen (test code = 3255-7) 246 mg/dl 225-434 Lab Interpretation (test code = Normal 95940-1) [facility]2022-03-17 13:48:43 Test Item Value Reference Range Interpretation Comments Fibrinogen (test code = 3255-7) 246 mg/dl 225-434 Lab Interpretation (test code = Normal 56125-1) [facility]2022-03-17 13:48:43 Test Item Value Reference Range Interpretation Comments Fibrinogen (test code = 3255-7) 246 mg/dl 225-434 Lab Interpretation (test code = Normal 87274-9) [place] 585692-03-17 13:48:43 Test Item Value Reference Range Interpretation Comments Fibrinogen (test code = 3255-7) 246 mg/dl 225-434 Lab Interpretation (test code = Normal 80853-9) [place] 585692-03-17 13:48:43 Test Item Value Reference Range Interpretation Comments Fibrinogen (test code = 3255-7) 246 mg/dl 225-434 Lab Interpretation (test code = Normal 97817-6) [facility] 13:48:43 Test Item Value Reference Range Interpretation Comments Fibrinogen (test code = 3255-7) 246 mg/dl 225-434 Lab Interpretation (test code = Normal 12556-1) [facility] 13:48:43 Test Item Value Reference Range Interpretation Comments FIBRINOGEN LEVEL (BEAKER) (test 246 mg/dl 225-434 code = 658) PROTHROMBIN TIME/[id number] 13:48:05 Test Item Value Reference Range Interpretation Comments PROTIME (BEAKER) 19.5 seconds 11.9-14.2 H (test code = 759) INR (BEAKER) (test 1.67 See_Comment [Automat ed message] code = 370) The system [employer] generated this result transmitted ref erence range: <=5.90. The reference range was not used to int erpret this result as normal/abnormal . RECOMMENDED COUMADIN/WARFARIN INR THERAPY RANGESSTANDARD DOSE: 2.0 - 3.0 Includes: PROPHYLAXIS for venous thrombosis, systemic embolization; TREATMENT for venous thrombosis and/or pulmonary embolus.HIGH RISK: Target INR is 2.5-3.5 for patients with mechanical heart valves.Platelet [id number] 13:39:36 Test Item Value Reference Range Interpretation Comments Platelets (test code 133 See_Comment L [Autom ated = 777-3) message] The system which generated this result transmit levi reference range : 150 - 450 K/CU MM. The reference range was not u sed to interpret th is result as normal/abnormal . BRANDI (test code = BRANDI) Control Technician ID - 6000 Lab Interpretation Abnormal (test code = 73133-9) [facility] [id number] 13:39:36 Test Item Value Reference Range Interpretation Comments Platelets (test code 133 See_Comment L [Autom ated = 777-3) message] The system which generated this result transmit levi reference range : 150 - 450 K/CU MM. The reference range was not u sed to interpret th is result as normal/abnormal . BRANDI (test code = BRANDI) Control Technician ID - 6000 Lab Interpretation Abnormal (test code = 42733-0) [facility] [id number] 13:39:36 Test Item Value Reference Range Interpretation Comments Platelets (test code 133 See_Comment L [Autom ated = 777-3) message] The system which generated this result transmit levi reference range : 150 - 450 K/CU MM. The reference range was not u sed to interpret th is result as normal/abnormal . BRANDI (test code = BRANDI) Control Technician ID - 6000 Lab Interpretation Abnormal (test code = 24897-8) [facility] [id number] 13:39:36 Test Item Value Reference Range Interpretation Comments Platelets (test code 133 See_Comment L [Autom ated = 777-3) message] The system which generated this result transmit levi reference range : 150 - 450 K/CU MM. The reference range was not u sed to interpret th is result as normal/abnormal . BRANDI (test code = BRANDI) Control Technician ID - 6000 Lab Interpretation Abnormal (test code = 45839-2) [facility] [id number] 13:39:36 Test Item Value Reference Range Interpretation Comments Platelets (test code 133 See_Comment L [Autom ated = 777-3) message] The system which generated this result transmit levi reference range : 150 - 450 K/CU MM. The reference range was not u sed to interpret th is result as normal/abnormal . BRANDI (test code = BRANDI) Control Technician ID - 6000 Lab Interpretation Abnormal (test code = 85549-4) [facility] [id number] 13:39:36 Test Item Value Reference Range Interpretation Comments Platelets (test code 133 See_Comment L [Autom ated = 777-3) message] The system which generated this result transmit levi reference range : 150 - 450 K/CU MM. The reference range was not u sed to interpret th is result as normal/abnormal . BRANDI (test code = BRANDI) Control Technician ID - 6000 Lab Interpretation Abnormal (test code = 35336-7) [facility] [id number] 13:39:36 Test Item Value Reference Range Interpretation Comments Platelets (test code 133 See_Comment L [Autom ated = 777-3) message] The system which generated this result transmit levi reference range : 150 - 450 K/CU MM. The reference range was not u sed to interpret th is result as normal/abnormal . BRANDI (test code = BRANDI) Control Technician ID - 6000 Lab Interpretation Abnormal (test code = 26517-1) [facility] [id number] 13:39:36 Test Item Value Reference Range Interpretation Comments Platelets (test code 133 See_Comment L [Autom ated = 777-3) message] The system which generated this result transmit levi reference range : 150 - 450 K/CU MM. The reference range was not u sed to interpret th is result as normal/abnormal . BRANDI (test code = BRANDI) Control Technician ID - 6000 Lab Interpretation Abnormal (test code = 21544-7) [facility] [id number] 13:39:36 Test Item Value Reference Range Interpretation Comments Platelets (test code 133 See_Comment L [Autom ated = 777-3) message] The system which generated this result transmit levi reference range : 150 - 450 K/CU MM. The reference range was not u sed to interpret th is result as normal/abnormal . BRANDI (test code = BRANDI) Control Technician ID - 6000 Lab Interpretation Abnormal (test code = 11445-2) [facility] [id number] 13:39:36 Test Item Value Reference Range Interpretation Comments Platelets (test code 133 See_Comment L [Autom ated = 777-3) message] The system which generated this result transmit levi reference range : 150 - 450 K/CU MM. The reference range was not u sed to interpret th is result as normal/abnormal . BRANDI (test code = BRANDI) Control Technician ID - 6000 Lab Interpretation Abnormal (test code = 54344-2) [facility] [id number] 13:39:36 Test Item Value Reference Range Interpretation Comments Platelets (test code 133 See_Comment L [Autom ated = 777-3) message] The system which generated this result transmit levi reference range : 150 - 450 K/CU MM. The reference range was not u sed to interpret th is result as normal/abnormal . BRANDI (test code = BRANDI) Control Technician ID - 6000 Lab Interpretation Abnormal (test code = 19612-1) [facility] [id number] 13:39:36 Test Item Value Reference Range Interpretation Comments Platelets (test code 133 See_Comment L [Autom ated = 777-3) message] The system which generated this result transmit levi reference range : 150 - 450 K/CU MM. The reference range was not u sed to interpret th is result as normal/abnormal . BRANDI (test code = BRANDI) Control Technician ID - 6000 Lab Interpretation Abnormal (test code = 87173-9) [facility] [id number] 13:39:36 Test Item Value Reference Range Interpretation Comments Platelets (test code 133 See_Comment L [Autom ated = 777-3) message] The system which generated this result transmit levi reference range : 150 - 450 K/CU MM. The reference range was not u sed to interpret th is result as normal/abnormal . BRANDI (test code = BRANDI) Control Technician ID - 6000 Lab Interpretation Abnormal (test code = 26770-2) [facility] [id number] 13:39:36 Test Item Value Reference Range Interpretation Comments Platelets (test code 133 See_Comment L [Autom ated = 777-3) message] The system which generated this result transmit levi reference range : 150 - 450 K/CU MM. The reference range was not u sed to interpret th is result as normal/abnormal . BRANDI (test code = BRANDI) Control Technician ID - 6000 Lab Interpretation Abnormal (test code = 73971-0) [facility] [id number] 13:39:36 Test Item Value Reference Range Interpretation Comments Platelets (test code 133 See_Comment L [Autom ated = 777-3) message] The system which generated this result transmit levi reference range : 150 - 450 K/CU MM. The reference range was not u sed to interpret th is result as normal/abnormal . BRANDI (test code = BRANDI) Control Technician ID - 6000 Lab Interpretation Abnormal (test code = 47047-6) [facility] [id number] 13:39:36 Test Item Value Reference Range Interpretation Comments Platelets (test code 133 See_Comment L [Autom ated = 777-3) message] The system which generated this result transmit levi reference range : 150 - 450 K/CU MM. The reference range was not u sed to interpret th is result as normal/abnormal . BRANDI (test code = BRANDI) Control Technician ID - 6000 Lab Interpretation Abnormal (test code = 56939-8) [facility] [id number] 13:39:36 Test Item Value Reference Range Interpretation Comments Platelets (test code 133 See_Comment L [Autom ated = 777-3) message] The system which generated this result transmit levi reference range : 150 - 450 K/CU MM. The reference range was not u sed to interpret th is result as normal/abnormal . BRANDI (test code = BRANDI) Control Technician ID - 6000 Lab Interpretation Abnormal (test code = 61387-6) [facility] [id number] 13:39:36 Test Item Value Reference Range Interpretation Comments Platelets (test code 133 See_Comment L [Autom ated = 777-3) message] The system which generated this result transmit levi reference range : 150 - 450 K/CU MM. The reference range was not u sed to interpret th is result as normal/abnormal . BRANDI (test code = BRANDI) Control Technician ID - 6000 Lab Interpretation Abnormal (test code = 98018-3) [facility] [id number] 13:39:36 Test Item Value Reference Range Interpretation Comments PLATELET COUNT (BEAKER) (test 133 K/CU MM 150-450 L code = 756) Control Technician ID - 6000HGB/HCT (H&H) - STAT [id number] 13:26:47 Test Item Value Reference Range Interpretation Comments HEMOGLOBIN (BEAKER) (test code = 7.4 GM/DL 12.0-15.0 L 410) HEMATOCRIT (BEAKER) (test code = 22.0 % 36.0-45.0 L 411) GLUCOSE-STAT [id number] 13:26:46 Test Item Value Reference Range Interpretation Comments GLUCOSE RANDOM (BEAKER) (test code 199 mg/dL 70-110 H = 652) SODIUM NA-STAT [id number] 13:26:46 Test Item Value Reference Range Interpretation Comments SODIUM (BEAKER) (test code = 381) 134 meq/L 136-145 L CALCIUM, [id number] 13:26:40 Test Item Value Reference Range Interpretation Comments CALCIUM IONIZED (BEAKER) (test 1.03 mmol/L 1.12-1.27 L code = 698) PH, BLOOD (BEAKER) (test code = 7.33 1810) BLOOD GAS, [id number] 13:26:34 Test Item Value Reference Range Interpretation [...] (BEAKER) (test code = 1819) 100.0 POTASSIUM-STAT [id number] 13:24:59 Test Item Value Reference Range Interpretation Comments POTASSIUM (BEAKER) (test code = 4.5 meq/L 3.6-5.5 379) PLATELET [id number] 13:18:08 Test Item Value Reference Range Interpretation Comments PLATELET COUNT (BEAKER) (test code 53 K/CU MM 150-450 L = 756) Control Technician ID - 6000Operator ID - 6000Operator ID - [id number] 12:53:55 Test Item Value Reference Range Interpretation Comments PARTIAL THROMBOPLASTIN TIME > seconds 22.5-36.0 HH (BEAKER) (test code = 760) [id number] 12:36:04 Test Item Value Reference Range Interpretation Comments FIBRINOGEN LEVEL (BEAKER) (test 289 mg/dl 225-434 code = 658) PROTHROMBIN [id number] 12:35:28 Test Item Value Reference Range Interpretation Comments PROTIME (BEAKER) 25.4 seconds 11.9-14.2 H (test code = 759) INR (BEAKER) (test 2.35 See_Comment [Automat ed message] code = 370) The system [employer] generated this result transmitted ref erence range: <=5.90. The reference range was not used to int erpret this result as normal/abnormal . RECOMMENDED COUMADIN/WARFARIN INR THERAPY RANGESSTANDARD DOSE: 2.0 - 3.0 Includes: PROPHYLAXIS for venous thrombosis, systemic embolization; TREATMENT for venous thrombosis and/or pulmonary embolus.HIGH RISK: Target INR is 2.5-3.5 for patients with mechanical heart valves.HGB/HCT (H&H) - STAT [id number] 12:28:06 Test Item Value Reference Range Interpretation Comments HEMOGLOBIN (BEAKER) (test code = 9.3 GM/DL 12.0-15.0 L 410) HEMATOCRIT (BEAKER) (test code = 27.0 % 36.0-45.0 L 411) SODIUM NA-STAT [id number] 12:28:05 Test Item Value Reference Range Interpretation Comments SODIUM (BEAKER) (test code = 381) 133 meq/L 136-145 L GLUCOSE-STAT [id number] 12:28:05 Test Item Value Reference Range Interpretation Comments GLUCOSE RANDOM (BEAKER) (test code 189 mg/dL 70-110 H = 652) BLOOD GAS, [id number] 12:28:04 Test Item Value Reference Range Interpretation [...] (BEAKER) (test code = 1819) 75.0 POTASSIUM-STAT [id number] 12:27:48 Test Item Value Reference Range Interpretation Comments POTASSIUM (BEAKER) (test code = 5.5 meq/L 3.6-5.5 379) BLOOD GAS, [id number] 11:48:59 Test Item Value Reference Range Interpretation [...] (BEAKER) (test code = 1819) 70.0 GLUCOSE-STAT [id number] 11:47:10 Test Item Value Reference Range Interpretation Comments GLUCOSE RANDOM (BEAKER) (test code 186 mg/dL 70-110 H = 652) HGB/HCT (H&H) - STAT [id number] 11:47:10 Test Item Value Reference Range Interpretation Comments HEMOGLOBIN (BEAKER) (test code = 8.9 GM/DL 12.0-15.0 L 410) HEMATOCRIT (BEAKER) (test code = 26.0 % 36.0-45.0 L 411) SODIUM NA-STAT [id number] 11:47:09 Test Item Value Reference Range Interpretation Comments SODIUM (BEAKER) (test code = 381) 133 meq/L 136-145 L POTASSIUM-STAT [id number] 11:46:29 Test Item Value Reference Range Interpretation Comments POTASSIUM (BEAKER) (test code = 5.3 meq/L 3.6-5.5 379) HGB/HCT (H&H) - STAT [id number] 11:17:46 Test Item Value Reference Range Interpretation Comments HEMOGLOBIN (BEAKER) (test code = 9.6 GM/DL 12.0-15.0 L 410) HEMATOCRIT (BEAKER) (test code = 28.0 % 36.0-45.0 L 411) SODIUM NA-STAT [id number] 11:17:45 Test Item Value Reference Range Interpretation Comments SODIUM (BEAKER) (test code = 381) 133 meq/L 136-145 L BLOOD GAS, [id number] 11:17:39 Test Item Value Reference Range Interpretation [...] (BEAKER) (test code = 1819) 70.0 GLUCOSE-STAT [id number] 11:17:39 Test Item Value Reference Range Interpretation Comments GLUCOSE RANDOM (BEAKER) (test code 171 mg/dL 70-110 H = 652) POTASSIUM-STAT [id number] 11:17:36 Test Item Value Reference Range Interpretation Comments POTASSIUM (BEAKER) (test code = 5.1 meq/L 3.6-5.5 379) HGB/HCT (H&H) - STAT [id number] 10:50:26 Test Item Value Reference Range Interpretation Comments HEMOGLOBIN (BEAKER) (test code = 8.4 GM/DL 12.0-15.0 L 410) HEMATOCRIT (BEAKER) (test code = 25.0 % 36.0-45.0 L 411) SODIUM NA-STAT [id number] 10:50:25 Test Item Value Reference Range Interpretation Comments SODIUM (BEAKER) (test code = 381) 133 meq/L 136-145 L GLUCOSE-STAT [id number] 10:50:25 Test Item Value Reference Range Interpretation Comments GLUCOSE RANDOM (BEAKER) (test code 134 mg/dL 70-110 H = 652) BLOOD GAS, [id number] 10:50:24 Test Item Value Reference Range Interpretation [...] (BEAKER) (test code = 1819) 100.0 POTASSIUM-STAT [id number] 10:49:45 Test Item Value Reference Range Interpretation Comments POTASSIUM (BEAKER) (test code = 3.8 meq/L 3.6-5.5 379) Hemoglobin [id number] 09:30:26 Test Item Value Reference Range Interpretation [...] ADM Lab Interpretation Abnormal (test code = 35182-7) [facility] [id number] 09:30:26 Test Item Value Reference Range Interpretation [...] ADM Lab Interpretation Abnormal (test code = 38675-6) [facility] [id number] 09:30:26 Test Item Value Reference Range Interpretation [...] ADM Lab Interpretation Abnormal (test code = 95648-1) [facility] [id number] 09:30:26 Test Item Value Reference Range Interpretation [...] ADM Lab Interpretation Abnormal (test code = 76131-3) [facility] [id number] 09:30:26 Test Item Value Reference Range Interpretation [...] ADM Lab Interpretation Abnormal (test code = 50177-4) [facility] [id number] 09:30:26 Test Item Value Reference Range Interpretation [...] ADM Lab Interpretation Abnormal (test code = 94527-7) [facility] [id number] 09:30:26 Test Item Value Reference Range Interpretation [...] ADM Lab Interpretation Abnormal (test code = 36481-9) [facility] [id number] 09:30:26 Test Item Value Reference Range Interpretation [...] ADM Lab Interpretation Abnormal (test code = 29869-7) [facility] [id number] 09:30:26 Test Item Value Reference Range Interpretation [...] ADM Lab Interpretation Abnormal (test code = 60513-0) [facility] [id number] 09:30:26 Test Item Value Reference Range Interpretation [...] ADM Lab Interpretation Abnormal (test code = 68646-9) [facility] [id number] 09:30:26 Test Item Value Reference Range Interpretation [...] ADM Lab Interpretation Abnormal (test code = 26130-4) [facility] [id number] 09:30:26 Test Item Value Reference Range Interpretation [...] ADM Lab Interpretation Abnormal (test code = 11372-3) [facility] [id number] 09:30:26 Test Item Value Reference Range Interpretation [...] ADM Lab Interpretation Abnormal (test code = 83386-5) [facility] [id number] 09:30:26 Test Item Value Reference Range Interpretation [...] ADM Lab Interpretation Abnormal (test code = 33103-1) [facility] [id number] 09:30:26 Test Item Value Reference Range Interpretation [...] ADM Lab Interpretation Abnormal (test code = 35527-0) [facility] [id number] 09:30:26 Test Item Value Reference Range Interpretation [...] ADM Lab Interpretation Abnormal (test code = 91353-8) [facility] [id number] 09:30:26 Test Item Value Reference Range Interpretation [...] ADM Lab Interpretation Abnormal (test code = 55849-8) [facility] [id number] 09:30:26 Test Item Value Reference Range Interpretation [...] ADM Lab Interpretation Abnormal (test code = 44843-3) [facility] [id number] 09:30:26 Test Item Value Reference Range Interpretation [...] 5.7- 6.4% indicates increased risk for diabetes (prediabetes)."Control Technician ID - ADM HGB/HCT (H&H) - STAT [id number] 09:13:03 Test Item Value Reference Range Interpretation Comments HEMOGLOBIN (BEAKER) (test code = 9.0 GM/DL 12.0-15.0 L 410) HEMATOCRIT (BEAKER) (test code = 26.0 % 36.0-45.0 L 411) SODIUM NA-STAT [id number] 09:13:02 Test Item Value Reference Range Interpretation Comments SODIUM (BEAKER) (test code = 381) 134 meq/L 136-145 L GLUCOSE-STAT [id number] 09:13:02 Test Item Value Reference Range Interpretation Comments GLUCOSE RANDOM (BEAKER) (test code 112 mg/dL 70-110 H = 652) BLOOD GAS, [id number] 09:13:01 Test Item Value Reference Range Interpretation [...] (BEAKER) (test code = 1819) 100.0 CALCIUM, [id number] 09:13:00 Test Item Value Reference Range Interpretation Comments CALCIUM IONIZED (BEAKER) (test 1.09 mmol/L 1.12-1.27 L code = 698) PH, BLOOD (BEAKER) (test code = 7.46 1810) POTASSIUM-STAT [id number] 09:12:15 Test Item Value Reference Range Interpretation Comments POTASSIUM (BEAKER) (test code = 3.7 meq/L 3.6-5.5 379) BASIC METABOLIC [id number] 07:11:03 Test Item Value Reference Range Interpretation [...] S NOT APPLICABLE FOR DIALYSIS PATIEN TS. Control Technician ID - HIEN [id number] 06:29:42 Test Item Value Reference Range Interpretation Comments PHOSPHORUS (BEAKER) (test code = 4.7 mg/dL 2.3-4.7 604) Control Technician ID - HIEN [id number] 06:29:41 Test Item Value Reference Range Interpretation Comments MAGNESIUM (BEAKER) (test code = 2.0 mg/dL 1.6-2.6 627) Control Technician ID - HIEN [facility] W/PLT COUNT & AUTO [id number] 06:04:09 Test Item Value Reference Range Interpretation [...] code = 2801) RAD, ABDOMEN/KUB, 1 VIEW [id number] 02:55:00Reason for exam:->abdominal painCHI K[facility]Name: [facility] : 1955 Sex: [...] no acute bony abnormality. Signed: Braxton Quintero [facility] Verified Date/Time: 06/18/2021 02:55:15 POCT-GLUCOSE [id number] 21:39:12 Test Item Value Reference Range Interpretation Comments POC-GLUCOSE METER 135 mg/dL 70-110 H : TESTED A T [facility] 6720 (BEAKER) (test code = [place], 1538) [address]: Control Technician/Techni kelle ID = [id number] for Eliezer Jerome HEMOGLOBIN AND [id number] 21:31:20 Test Item Value Reference Range Interpretation Comments HEMOGLOBIN (BEAKER) (test code = 6.9 GM/DL 11.2-15.7 L 410) HEMATOCRIT (BEAKER) (test code = 21.8 % 34.1-44.9 L 411) Control Technician ID - [id number] ID - 6000CT, [id number] 18:33:00Unlisted Reason for Exam - Click Yes and Enter Reason Below->NoIs this for enterography?->NoPlease specify:->Renal Stone Protocolalso look for spleen if there is any infarct causing left flankpainWill this procedure require oral contrast?->NoDIANE [facility]Name: [facility] : 1955 Sex: [...] Gregorioeport Verified Date/Time: 06/17/2021 18:33:28 Reading Location: [facility] C0[facility] Transitional Reading Room Comprehensive metabolic [id number] 16:18:22 Test Item Value Reference Range Interpretation Comments Protein, Total (test 7.0 See_Comment [Autom ated code = 2885-2) message] The system which generated this result transmit levi reference range : 6.0 - 8.3 gm/dL . The reference range was not u sed to interpret th is result as normal/abnormal . Albumin (test code = 2.7 g/dL 3.5-5.0 L 51470-3) Alkaline Phosphatase 99 U/L 40-150 (test code [...] Calcium (test code = 8.4 mg/dL 8.4-10.2 34528-9) AST (test code = 17 U/L 5-34 1920-8) ALT (test code = 10 U/L 6-55 1742-6) EGFR (test code = 11 mL/min/1.[place] [address]-4) NOT ACCURATE CREATININE CLEARANCE IN PREDICTING GLOMERULAR FILTRATION RATE . ESTIMATED GFR I S NOT APPLICABLE FOR DIALYSIS PATIEN TS. BRANDI (test code = BRANDI) Control Technician ID - BS Lab Interpretation Abnormal (test code = 89605-4) [facility] [id number] 16:18:22 Test Item Value Reference Range Interpretation Comments Protein, Total (test 7.0 See_Comment [Autom ated code = 2885-2) message] The system which generated this result transmit levi reference range : 6.0 - 8.3 gm/dL . The reference range was not u sed to interpret th is result as normal/abnormal . Albumin (test code = 2.7 g/dL 3.5-5.0 L 43963-3) Alkaline Phosphatase 99 U/L 40-150 (test code [...] Calcium (test code = 8.4 mg/dL 8.4-10.2 77776-7) AST (test code = 17 U/L 5-34 1920-8) ALT (test code = 10 U/L 6-55 1742-6) EGFR (test code = 11 mL/min/1.[place] [address]-3) NOT ACCURATE CREATININE CLEARANCE IN PREDICTING GLOMERULAR FILTRATION RATE . ESTIMATED GFR I S NOT APPLICABLE FOR DIALYSIS PATIEN TS. BRANDI (test code = BRANDI) Control Technician ID - BS Lab Interpretation Abnormal (test code = 57494-8) [facility] [id number] 16:18:22 Test Item Value Reference Range Interpretation Comments Protein, Total (test 7.0 See_Comment [Autom ated code = 2885-2) message] The system which generated this result transmit levi reference range : 6.0 - 8.3 gm/dL . The reference range was not u sed to interpret th is result as normal/abnormal . Albumin (test code = 2.7 g/dL 3.5-5.0 L 88731-8) Alkaline Phosphatase 99 U/L 40-150 (test code [...] Calcium (test code = 8.4 mg/dL 8.4-10.2 82951-8) AST (test code = 17 U/L 5-34 1920-8) ALT (test code = 10 U/L 655 1742-6) EGFR (test code = 11 mL/min/1.[place] [address]-7) NOT ACCURATE CREATININE CLEARANCE IN PREDICTING GLOMERULAR FILTRATION RATE . ESTIMATED GFR I S NOT APPLICABLE FOR DIALYSIS PATIEN TS. BRANDI (test code = BRANDI) Control Technician ID - BS Lab Interpretation Abnormal (test code = 45608-9) [facility] [id number] 16:18:22 Test Item Value Reference Range Interpretation Comments Protein, Total (test 7.0 See_Comment [Autom ated code = 2885-2) message] The system which generated this result transmit levi reference range : 6.0 - 8.3 gm/dL . The reference range was not u sed to interpret th is result as normal/abnormal . Albumin (test code = 2.7 g/dL 3.5-5.0 L 41395-0) Alkaline Phosphatase 99 U/L 40-150 (test code [...] Calcium (test code = 8.4 mg/dL 8.4-10.2 66713-5) AST (test code = 17 U/L -34 1920-8) ALT (test code = 10 U/L 6-55 1742-6) EGFR (test code = 11 mL/min/1.[place] [address]-2) NOT ACCURATE CREATININE CLEARANCE IN PREDICTING GLOMERULAR FILTRATION RATE . ESTIMATED GFR I S NOT APPLICABLE FOR DIALYSIS PATIEN TS. BRANDI (test code = BRANDI) Control Technician ID - BS Lab Interpretation Abnormal (test code = 97698-7) [facility] [id number] 16:18:22 Test Item Value Reference Range Interpretation Comments Protein, Total (test 7.0 See_Comment [Autom ated code = 2885-2) message] The system which generated this result transmit levi reference range : 6.0 - 8.3 gm/dL . The reference range was not u sed to interpret th is result as normal/abnormal . Albumin (test code = 2.7 g/dL 3.5-5.0 L 96991-8) Alkaline Phosphatase 99 U/L 40-150 (test code [...] Calcium (test code = 8.4 mg/dL 8.4-10.2 12560-2) AST (test code = 17 U/L -34 0-8) ALT (test code = 10 U/L 1741-6) EGFR (test code = 11 mL/min/1.[place] [address]-4) NOT ACCURATE CREATININE CLEARANCE IN PREDICTING GLOMERULAR FILTRATION RATE . ESTIMATED GFR I S NOT APPLICABLE FOR DIALYSIS PATIEN BRANDI (test code = BRANDI) Control Technician ID - BS Lab Interpretation Abnormal (test code = 84856-6) [facility] [id number] 16:18:22 Test Item Value Reference Range Interpretation Comments Protein, Total (test 7.0 See_Comment [Autom ated code = 2885-2) message] The system which generated this result transmit levi reference range : 6.0 - 8.3 gm/dL . The reference range was not u sed to interpret th is result as normal/abnormal . Albumin (test code = 2.7 g/dL 3.5-5.0 L 53446-4) Alkaline Phosphatase 99 U/L 40-150 (test code [...] Calcium (test code = 8.4 mg/dL 8.4-10.2 27737-8) AST (test code = 17 U/L -34 1919-8) ALT (test code = 10 U/L 1741-6) EGFR (test code = 11 mL/min/1.[place] [address]-5) NOT ACCURATE CREATININE CLEARANCE IN PREDICTING GLOMERULAR FILTRATION RATE . ESTIMATED GFR I S NOT APPLICABLE FOR DIALYSIS PATIEN BRANDI (test code = BRANDI) Control Technician ID - BS Lab Interpretation Abnormal (test code = 98255-1) [facility] [id number] 16:18:22 Test Item Value Reference Range Interpretation Comments Protein, Total (test 7.0 See_Comment [Autom ated code = 2885-2) message] The system which generated this result transmit levi reference range : 6.0 - 8.3 gm/dL . The reference range was not u sed to interpret th is result as normal/abnormal . Albumin (test code = 2.7 g/dL 3.5-5.0 L 52842-5) Alkaline Phosphatase 99 U/L 40-150 (test code [...] Calcium (test code = 8.4 mg/dL 8.4-10.2 00795-4) AST (test code = 17 U/L 5-34 1920-8) ALT (test code = 10 U/L 6-55 1742-6) EGFR (test code = 11 mL/min/1.[place] [address]-4) NOT ACCURATE CREATININE CLEARANCE IN PREDICTING GLOMERULAR FILTRATION RATE . ESTIMATED GFR I S NOT APPLICABLE FOR DIALYSIS PATIEN BRANDI (test code = BRANDI) Control Technician ID - BS Lab Interpretation Abnormal (test code = 72184-7) [facility] [id number] 16:18:22 Test Item Value Reference Range Interpretation Comments Protein, Total (test 7.0 See_Comment [Autom ated code = 2885-2) message] The system which generated this result transmit levi reference range : 6.0 - 8.3 gm/dL . The reference range was not u sed to interpret th is result as normal/abnormal . Albumin (test code = 2.7 g/dL 3.5-5.0 L 48618-0) Alkaline Phosphatase 99 U/L 40-150 (test code [...] Calcium (test code = 8.4 mg/dL 8.4-10.2 87186-7) AST (test code = 17 U/L 5-34 1920-8) ALT (test code = 10 U/L 6-55 1742-6) EGFR (test code = 11 mL/min/1.[place] [address]-7) NOT ACCURATE CREATININE CLEARANCE IN PREDICTING GLOMERULAR FILTRATION RATE . ESTIMATED GFR I S NOT APPLICABLE FOR DIALYSIS PATIEN TS. BRANDI (test code = BRANDI) Control Technician ID - BS Lab Interpretation Abnormal (test code = 22275-0) [facility] [id number] 16:18:22 Test Item Value Reference Range Interpretation Comments Protein, Total (test 7.0 See_Comment [Autom ated code = 2885-2) message] The system which generated this result transmit levi reference range : 6.0 - 8.3 gm/dL . The reference range was not u sed to interpret th is result as normal/abnormal . Albumin (test code = 2.7 g/dL 3.5-5.0 L 15168-8) Alkaline Phosphatase 99 U/L 40-150 (test code [...] Calcium (test code = 8.4 mg/dL 8.4-10.2 36251-9) AST (test code = 17 U/L 5-34 1920-8) ALT (test code = 10 U/L 6-55 1742-6) EGFR (test code = 11 mL/min/1.[place] [address]-7) NOT ACCURATE CREATININE CLEARANCE IN PREDICTING GLOMERULAR FILTRATION RATE . ESTIMATED GFR I S NOT APPLICABLE FOR DIALYSIS PATIEN BRANDI (test code = BRANDI) Control Technician ID - BS Lab Interpretation Abnormal (test code = 04440-6) [facility] [id number] 16:18:22 Test Item Value Reference Range Interpretation Comments Protein, Total (test 7.0 See_Comment [Autom ated code = 2885-2) message] The system which generated this result transmit levi reference range : 6.0 - 8.3 gm/dL . The reference range was not u sed to interpret th is result as normal/abnormal . Albumin (test code = 2.7 g/dL 3.5-5.0 L 70397-2) Alkaline Phosphatase 99 U/L 40-150 (test code [...] Calcium (test code = 8.4 mg/dL 8.4-10.2 39101-4) AST (test code = 17 U/L 5-34 1920-8) ALT (test code = 10 U/L 6-55 1742-6) EGFR (test code = 11 mL/min/1.[place] [address]-8) NOT ACCURATE CREATININE CLEARANCE IN PREDICTING GLOMERULAR FILTRATION RATE . ESTIMATED GFR I S NOT APPLICABLE FOR DIALYSIS PATIEN TS. BRANDI (test code = BRANDI) Control Technician ID - BS Lab Interpretation Abnormal (test code = 51965-1) [facility] [id number] 16:18:22 Test Item Value Reference Range Interpretation Comments Protein, Total (test 7.0 See_Comment [Autom ated code = 2885-2) message] The system which generated this result transmit levi reference range : 6.0 - 8.3 gm/dL . The reference range was not u sed to interpret th is result as normal/abnormal . Albumin (test code = 2.7 g/dL 3.5-5.0 L 44081-4) Alkaline Phosphatase 99 U/L 40-150 (test code [...] Calcium (test code = 8.4 mg/dL 8.4-10.2 60570-7) AST (test code = 17 U/L -34 1920-8) ALT (test code = 10 U/L 6-55 1742-6) EGFR (test code = 11 mL/min/1.[place] [address]-6) NOT ACCURATE CREATININE CLEARANCE IN PREDICTING GLOMERULAR FILTRATION RATE . ESTIMATED GFR I S NOT APPLICABLE FOR DIALYSIS PATIEN TS. BRANDI (test code = BRANDI) Control Technician ID - BS Lab Interpretation Abnormal (test code = 68786-6) [facility] [id number] 16:18:22 Test Item Value Reference Range Interpretation Comments Protein, Total (test 7.0 See_Comment [Autom ated code = 2885-2) message] The system which generated this result transmit levi reference range : 6.0 - 8.3 gm/dL . The reference range was not u sed to interpret th is result as normal/abnormal . Albumin (test code = 2.7 g/dL 3.5-5.0 L 94398-0) Alkaline Phosphatase 99 U/L 40-150 (test code [...] Calcium (test code = 8.4 mg/dL 8.4-10.2 23294-2) AST (test code = 17 U/L 1919-8) ALT (test code = 10 U/L 1742-6) EGFR (test code = 11 mL/min/1.[place] [address]-0) NOT ACCURATE CREATININE CLEARANCE IN PREDICTING GLOMERULAR FILTRATION RATE . ESTIMATED GFR I S NOT APPLICABLE FOR DIALYSIS PATIEN TS. BRANDI (test code = BRANDI) Control Technician ID - BS Lab Interpretation Abnormal (test code = 63033-1) [facility] [id number] 16:18:22 Test Item Value Reference Range Interpretation Comments Protein, Total (test 7.0 See_Comment [Autom ated code = 2885-2) message] The system which generated this result transmit levi reference range : 6.0 - 8.3 gm/dL . The reference range was not u sed to interpret th is result as normal/abnormal . Albumin (test code = 2.7 g/dL 3.5-5.0 L 46829-8) Alkaline Phosphatase 99 U/L 40-150 (test code [...] Calcium (test code = 8.4 mg/dL 8.4-10.2 93289-4) AST (test code = 17 U/L 1919-8) ALT (test code = 10 U/L 2-6) EGFR (test code = 11 mL/min/1.[place] [address]-8) NOT ACCURATE CREATININE CLEARANCE IN PREDICTING GLOMERULAR FILTRATION RATE . ESTIMATED GFR I S NOT APPLICABLE FOR DIALYSIS PATIEN TS. BRANDI (test code = BRANDI) Control Technician ID - BS Lab Interpretation Abnormal (test code = 06049-6) [facility] [id number] 16:18:22 Test Item Value Reference Range Interpretation Comments Protein, Total (test 7.0 See_Comment [Autom ated code = 2885-2) message] The system which generated this result transmit levi reference range : 6.0 - 8.3 gm/dL . The reference range was not u sed to interpret th is result as normal/abnormal . Albumin (test code = 2.7 g/dL 3.5-5.0 L 46193-7) Alkaline Phosphatase 99 U/L 40-150 (test code [...] Calcium (test code = 8.4 mg/dL 8.4-10.2 79177-8) AST (test code = 17 U/L 5-34 1920-8) ALT (test code = 10 U/L 6-55 1742-6) EGFR (test code = 11 mL/min/1.[place] [address]-4) NOT ACCURATE CREATININE CLEARANCE IN PREDICTING GLOMERULAR FILTRATION RATE . ESTIMATED GFR I S NOT APPLICABLE FOR DIALYSIS PATIEN TS. PAZ (test code = BRANDI) Control Technician ID - BS Lab Interpretation Abnormal (test code = 44855-3) [facility] [id number] 16:18:22 Test Item Value Reference Range Interpretation Comments Protein, Total (test 7.0 See_Comment [Autom ated code = 2885-2) message] The system which generated this result transmit levi reference range : 6.0 - 8.3 gm/dL . The reference range was not u sed to interpret th is result as normal/abnormal . Albumin (test code = 2.7 g/dL 3.5-5.0 L 28819-8) Alkaline Phosphatase 99 U/L 40-150 (test code [...] Calcium (test code = 8.4 mg/dL 8.4-10.2 59705-7) AST (test code = 17 U/L 5-34 1920-8) ALT (test code = 10 U/L 6-55 1742-6) EGFR (test code = 11 mL/min/1.73 sq [place] [place] [address]-7) NOT ACCURATE CREATININE CLEARANCE IN PREDICTING GLOMERULAR FILTRATION RATE . ESTIMATED GFR I S NOT APPLICABLE FOR DIALYSIS PATIEN TS. BRANDI (test code = BRANDI) Control Technician ID - BS Lab Interpretation Abnormal (test code = 65053-2) [facility] [id number] 16:18:22 Test Item Value Reference Range Interpretation Comments Protein, Total (test 7.0 See_Comment [Autom ated code = 2885-2) message] The system which generated this result transmit levi reference range : 6.0 - 8.3 gm/dL . The reference range was not u sed to interpret th is result as normal/abnormal . Albumin (test code = 2.7 g/dL 3.5-5.0 L 27891-9) Alkaline Phosphatase 99 U/L 40-150 (test code [...] Calcium (test code = 8.4 mg/dL 8.4-10.2 56540-6) AST (test code = 17 U/L 5-34 1920-8) ALT (test code = 10 U/L 6-55 1742-6) EGFR (test code = 11 mL/min/1.73 sq [place] [place] [address]-1) NOT ACCURATE CREATININE CLEARANCE IN PREDICTING GLOMERULAR FILTRATION RATE . ESTIMATED GFR I S NOT APPLICABLE FOR DIALYSIS PATIEN TS. BRANDI (test code = BRANDI) Control Technician ID - BS Lab Interpretation Abnormal (test code = 93479-7) [facility] [id number] 16:18:22 Test Item Value Reference Range Interpretation Comments Protein, Total (test 7.0 See_Comment [Autom ated code = 2885-2) message] The system which generated this result transmit levi reference range : 6.0 - 8.3 gm/dL . The reference range was not u sed to interpret th is result as normal/abnormal . Albumin (test code = 2.7 g/dL 3.5-5.0 L 16951-1) Alkaline Phosphatase 99 U/L 40-150 (test code [...] Calcium (test code = 8.4 mg/dL 8.4-10.2 08785-8) AST (test code = 17 U/L 34 1920-8) ALT (test code = 10 U/L 655 1742-6) EGFR (test code = 11 mL/min/1.[place] [address]-4) NOT ACCURATE CREATININE CLEARANCE IN PREDICTING GLOMERULAR FILTRATION RATE . ESTIMATED GFR I S NOT APPLICABLE FOR DIALYSIS PATIEN BRANDI (test code = BRANDI) Control Technician ID - BS Lab Interpretation Abnormal (test code = 33185-6) [facility] [id number] 16:18:22 Test Item Value Reference Range Interpretation Comments Protein, Total (test 7.0 See_Comment [Autom ated code = 2885-2) message] The system which generated this result transmit levi reference range : 6.0 - 8.3 gm/dL . The reference range was not u sed to interpret th is result as normal/abnormal . Albumin (test code = 2.7 g/dL 3.5-5.0 L 19893-5) Alkaline Phosphatase 99 U/L 40-150 (test code [...] Calcium (test code = 8.4 mg/dL 8.4-10.2 96364-7) AST (test code = 17 U/L 5-34 1920-8) ALT (test code = 10 U/L 6-55 1742-6) EGFR (test code = 11 mL/min/1.[place] [address]-4) NOT ACCURATE CREATININE CLEARANCE IN PREDICTING GLOMERULAR FILTRATION RATE . ESTIMATED GFR I S NOT APPLICABLE FOR DIALYSIS PATIEN TSEsvin BRANDI (test code = BRANDI) Control Technician ID - BS Lab Interpretation Abnormal (test code = 54929-7) [facility] [id number] 16:18:22 Test Item Value Reference Range Interpretation [...] S NOT APPLICABLE FOR DIALYSIS PATIEN TS. Control Technician ID - [id number] 16:17:20 Test Item Value Reference Range Interpretation Comments MAGNESIUM (BEAKER) (test code = 1.8 mg/dL 1.6-2.6 627) Control Technician ID - [id number] 16:10:37 Test Item Value Reference Range Interpretation Comments PARTIAL THROMBOPLASTIN TIME 34.5 seconds 22.5-36.0 (BEAKER) (test code = 760) PROTHROMBIN TIME/[id number] 16:10:03 Test Item Value Reference Range Interpretation Comments PROTIME (BEAKER) 17.2 seconds 11.9-14.2 H (test code = 759) INR (BEAKER) (test 1.43 See_Comment [Automat ed message] code = 370) The system [employer] generated this result transmitted ref erence range: <=5.90. The reference range was not used to int erpret this result as normal/abnormal . RECOMMENDED COUMADIN/WARFARIN INR THERAPY RANGESSTANDARD DOSE: 2.0 - 3.0 Includes: PROPHYLAXIS for venous thrombosis, systemic embolization; TREATMENT for venous thrombosis and/or pulmonary embolus.HIGH RISK: Target INR is 2.5-3.5 for patients with mechanical heart valves.CBC W/PLT COUNT & AUTO [id number] 16:01:31 Test Item Value Reference Range Interpretation [...] (BEAKER) (test code = 2801) NV, ANGIOGRAM, [id number] 09:13:00Reason for exam:->mycotic aneurysm rule outL[facility] LINDSAY : 1955 Sex: FFINAL REPORT DATE OF PROCEDURE: 06/16/2021 SURGEON: Mili Kent MD MANAGER BRAND: Eloy Portillo MD; Alisa Monae MD PREOPERATIVE DIAGNOSIS: Subarachnoid hemorrhage POST OPERATIVE DIAGNOSIS: Nonaneurysmal subarachnoid hemorrhage PROCEDURE: Diagnostic cerebral injury ANESTHESIA: Monitored anesthesia ESTIMATED BLOOD LOSS: Minimal COMPLICATIONS: None Vessels catheterized:Right common femoral arteryRight common carotid artery, cervicalRight common carotid, cerebralLeft common carotid artery, cervicalLeft common carotid, cerebralLeft vertebral artery *FEMORAL*5F sheathBentson WireVertebral CatheterTerumo [place] wireMynx Closure Device INDICATIONS: The patient is [...] arteries are patent. There is a right TACKING MACHINE OPERATOR variant anatomy. No evidence of [...] cerebral artery is diminutive in size given TACKING MACHINE OPERATOR anatomy and the the left TACKING MACHINE OPERATOR is normal in caliber and [...] MDReport Verified Date/Time: 06/17/2021 09:13:43 Reading Location: [facility] Y026 Neuro Angio Reading Room BASIC METABOLIC [id number] 05:09:41 Test Item Value Reference Range Interpretation [...] S NOT APPLICABLE FOR DIALYSIS PATIEN TS. Control Technician ID - HIEN [id number] 05:07:06 Test Item Value Reference Range Interpretation Comments MAGNESIUM (BEAKER) (test code = 2.1 mg/dL 1.6-2.6 627) Control Technician ID - HIEN [id number] 05:07:06 Test Item Value Reference Range Interpretation Comments PHOSPHORUS (BEAKER) (test code = 5.7 mg/dL 2.3-4.7 H 604) Control Technician ID - HIEN MCBC W/PLT COUNT & AUTO [id number] 04:38:56 Test Item Value Reference Range Interpretation [...] PERCENT (BEAKER) (test code = 2801) POCT-GLUCOSE [id number] 00:10:32 Test Item Value Reference Range Interpretation Comments POC-GLUCOSE METER 221 mg/dL 70-110 H : TESTED A T [facility] 6720 (BEAKER) (test code = YUDY LLOYD, 1538) 17805: Control Technician/Techni kelle ID = [id number] for ELROY MARGARITARUPERT SHAHLA POCT-GLUCOSE [id number] 18:11:32 Test Item Value Reference Range Interpretation Comments POC-GLUCOSE METER 170 mg/dL 70-110 H : TESTED A T [facility] 6720 (BEAKER) (test code = YUDY [place], 1538) 67071: Control Technician/Techni kelle ID = [id number] for An Onelia ramirez Blood [id number] 14:00:39 Test Item Value Reference Range Interpretation Comments Result (test code = No growth in 5 days 6463-4) [facility] [id number] 14:00:39 Test Item Value Reference Range Interpretation Comments Result (test code = No growth in 5 days 6463-4) [facility] [id number] 14:00:39 Test Item Value Reference Range Interpretation Comments Result (test code = No growth in 5 days 6463-4) [facility]2022-03-15 14:00:39 Test Item Value Reference Range Interpretation Comments Result (test code = No growth in 5 days 6463-4) [facility] [id number] 14:00:39 Test Item Value Reference Range Interpretation Comments Result (test code = No growth in 5 days 6463-4) [facility] [id number] 14:00:39 Test Item Value Reference Range Interpretation Comments Result (test code = No growth in 5 days 6463-4) [facility] [id number] 14:00:39 Test Item Value Reference Range Interpretation Comments Result (test code = No growth in 5 days 6463-4) [facility] [id number] 14:00:39 Test Item Value Reference Range Interpretation Comments Result (test code = No growth in 5 days 6463-4) [facility] [id number] 14:00:39 Test Item Value Reference Range Interpretation Comments Result (test code = No growth in 5 days 6463-4) [facility]2022-03-15 14:00:39 Test Item Value Reference Range Interpretation Comments Result (test code = No growth in 5 days 6463-4) [facility] [id number] 14:00:39 Test Item Value Reference Range Interpretation Comments Result (test code = No growth in 5 days 6463-4) [facility] [id number] 14:00:39 Test Item Value Reference Range Interpretation Comments Result (test code = No growth in 5 days 6463-4) [facility] [id number] 14:00:39 Test Item Value Reference Range Interpretation Comments Result (test code = No growth in 5 days 6463-4) [facility]2022-03-15 14:00:39 Test Item Value Reference Range Interpretation Comments Result (test code = No growth in 5 days 6463-4) [facility] [id number] 14:00:39 Test Item Value Reference Range Interpretation Comments Result (test code = No growth in 5 days 6463-4) [facility]2022-03-15 14:00:39 Test Item Value Reference Range Interpretation Comments Result (test code = No growth in 5 days 6463-4) [facility]2022-03-15 14:00:39 Test Item Value Reference Range Interpretation Comments Result (test code = No growth in 5 days 6463-4) [facility]2022-03-15 14:00:39 Test Item Value Reference Range Interpretation Comments CULTURE (BEAKER) (test No growth in 5 days code = 1095) MR, BRAIN, WITHOUT [id number] 13:02:00Pt has [employer] ESSENTIO MRI L111/ [id number] Unlisted Reason for Exam - Click Yes and Enter Reason Below- >No Deos the patient have an implanted electronic device?->Yes [employer] ESSENTIO MRI L111/ [id number] [facility] : 1955 Sex: [...] MDReport Verified Date/Time: 06/16/2021 13:02:07 Reading Location: [address] Neuro Reading Room D [id number] 08:00:27 Test Item Value Reference Range Interpretation Comments CULTURE (BEAKER) (test No growth in 5 days code = 1095) POCT-GLUCOSE [id number] 07:30:10 Test Item Value Reference Range Interpretation Comments POC-GLUCOSE METER 159 mg/dL 70-110 H : TESTED [facility] 6720 (BEAKER) (test code = YUDY [place], 1538) 85682: Control Technician/Techni kelle ID = [id number] for Onelia Lorenz BASIC METABOLIC [id number] 05:42:18 Test Item Value Reference Range Interpretation [...] S NOT APPLICABLE FOR DIALYSIS PATIEN TS. Control Technician ID - RAKAN [id number] 05:35:31 Test Item Value Reference Range Interpretation Comments MAGNESIUM (BEAKER) (test code = 2.1 mg/dL 1.6-2.6 627) Control Technician ID - RAKAN [id number] 05:35:31 Test Item Value Reference Range Interpretation Comments PHOSPHORUS (BEAKER) (test code = 4.5 mg/dL 2.3-4.7 604) Control Technician ID Bassam [facility] W/PLT COUNT & AUTO [id number] 04:43:33 Test Item Value Reference Range Interpretation [...] PERCENT (BEAKER) (test code = 2801) BLOOD [id number] 00:00:28 Test Item Value Reference Range Interpretation Comments CULTURE (NABILAKER) (test No growth in 5 days code = 1095) The specimen volume collected for this blood culture was below the optimum (10 mL per bottle or 20 mL total). Use of lower volumes may adversely affect recovery and/or detection times of some organisms.POCT-GLUCOSE [id number] 21:39:58 Test Item Value Reference Range Interpretation Comments POC-GLUCOSE METER 173 mg/dL 70-110 H : Notified RN/MD: (AKASH) (test code = TESTED AT [facility] 6702 9195) [facility], [address]: Control Technician/Techni kelle ID = [id number] for DE NNIS, EMANUEL Hepatic function [id number] 15:52:11 Test Item Value Reference Range Interpretation Comments Protein, Total (test 6.8 See_Comment [Autom ated code = 2885-2) message] The system which generated this result transmit levi reference range : 6.0 - 8.3 gm/dL . The reference range was not u sed to interpret th is result as normal/abnormal . Albumin (test code = 2.6 g/dL 3.5-5.0 L 23839-9) Total Bilirubin (test 0.3 mg/dL 0.2-1.2 code = 1974-2) Bilirubin, Direct 0.2 mg/dL 0.1-0.5 (test code = 1967-7) Alkaline Phosphatase 90 U/L 40-150 (test code = 6768-6) AST (test code = 17 U/L 192-8) ALT (test code = 11 U/L 1742-6) BRANDI (test code = BRANDI) Control Technician ID - PIAYA L Lab Interpretation Abnormal (test code = 81650-9) [facility] [id number] 15:52:11 Test Item Value Reference Range Interpretation Comments Protein, Total (test 6.8 See_Comment [Autom ated code = 2885-2) message] The system which generated this result transmit levi reference range : 6.0 - 8.3 gm/dL . The reference range was not u sed to interpret th is result as normal/abnormal . Albumin (test code = 2.6 g/dL 3.5-5.0 L 89436-6) Total Bilirubin (test 0.3 mg/dL 0.2-1.2 code = 1974-) Bilirubin, Direct 0.2 mg/dL 0.1-0.5 (test code = 1967-10) Alkaline Phosphatase 90 U/L 40-150 (test code = 6768-6) AST (test code = 17 U/L 192-8) ALT (test code = 11 U/L 1742-6) BRANDI (test code = BRANDI) Control Technician ID - PIAYA L Lab Interpretation Abnormal (test code = 90928-0) [facility] [id number] 15:52:11 Test Item Value Reference Range Interpretation Comments Protein, Total (test 6.8 See_Comment [Autom ated code = 2885-2) message] The system which generated this result transmit levi reference range : 6.0 - 8.3 gm/dL . The reference range was not u sed to interpret th is result as normal/abnormal . Albumin (test code = 2.6 g/dL 3.5-5.0 L 88119-5) Total Bilirubin (test 0.3 mg/dL 0.2-1.2 code = 1974-05) Bilirubin, Direct 0.2 mg/dL 0.1-0.5 (test code = 1967-10) Alkaline Phosphatase 90 U/L 40-150 (test code = 6768-6) AST (test code = 17 U/L 1920-8) ALT (test code = 11 U/L 1742-6) BRANDI (test code = BRANDI) Control Technician ID - PIAYA L Lab Interpretation Abnormal (test code = 22378-7) [facility] [id number] 15:52:11 Test Item Value Reference Range Interpretation Comments Protein, Total (test 6.8 See_Comment [Autom ated code = 2885-2) message] The system which generated this result transmit levi reference range : 6.0 - 8.3 gm/dL . The reference range was not u sed to interpret th is result as normal/abnormal . Albumin (test code = 2.6 g/dL 3.5-5.0 L 01126-0) Total Bilirubin (test 0.3 mg/dL 0.2-1.2 code = 1974-05) Bilirubin, Direct 0.2 mg/dL 0.1-0.5 (test code = 1967-10) Alkaline Phosphatase 90 U/L 40-150 (test code = 6768-6) AST (test code = 17 U/L 34 1920-8) ALT (test code = 11 U/L 1742-6) BRANDI (test code = BRANDI) Control Technician ID - PIAYA L Lab Interpretation Abnormal (test code = 90133-2) [facility] [id number] 15:52:11 Test Item Value Reference Range Interpretation Comments Protein, Total (test 6.8 See_Comment [Autom ated code = 2885-2) message] The system which generated this result transmit levi reference range : 6.0 - 8.3 gm/dL . The reference range was not u sed to interpret th is result as normal/abnormal . Albumin (test code = 2.6 g/dL 3.5-5.0 L 18698-1) Total Bilirubin (test 0.3 mg/dL 0.2-1.2 code = 1974-05) Bilirubin, Direct 0.2 mg/dL 0.1-0.5 (test code = 1967-10) Alkaline Phosphatase 90 U/L 40-150 (test code = 6768-6) AST (test code = 17 U/L 1919-8) ALT (test code = 11 U/L 1742-6) BRANDI (test code = BRANDI) Control Technician ID - PIAYA L Lab Interpretation Abnormal (test code = 41424-7) [facility] [id number] 15:52:11 Test Item Value Reference Range Interpretation Comments Protein, Total (test 6.8 See_Comment [Autom ated code = 2885-2) message] The system which generated this result transmit levi reference range : 6.0 - 8.3 gm/dL . The reference range was not u sed to interpret th is result as normal/abnormal . Albumin (test code = 2.6 g/dL 3.5-5.0 L 66049-6) Total Bilirubin (test 0.3 mg/dL 0.2-1.2 code = 1974-05) Bilirubin, Direct 0.2 mg/dL 0.1-0.5 (test code = 1967-10) Alkaline Phosphatase 90 U/L 40-150 (test code = 6768-6) AST (test code = 17 U/L 1919-8) ALT (test code = 11 U/L 1742-6) BRANDI (test code = BRANDI) Control Technician ID - PIAYA L Lab Interpretation Abnormal (test code = 18084-7) [facility] [id number] 15:52:11 Test Item Value Reference Range Interpretation Comments Protein, Total (test 6.8 See_Comment [Autom ated code = 2885-2) message] The system which generated this result transmit levi reference range : 6.0 - 8.3 gm/dL . The reference range was not u sed to interpret th is result as normal/abnormal . Albumin (test code = 2.6 g/dL 3.5-5.0 L 79691-7) Total Bilirubin (test 0.3 mg/dL 0.2-1.2 code = 1974-05) Bilirubin, Direct 0.2 mg/dL 0.1-0.5 (test code = 1967-10) Alkaline Phosphatase 90 U/L 40-150 (test code = 6768-6) AST (test code = 17 U/L 1919-8) ALT (test code = 11 U/L 1742-6) BRANDI (test code = BRANDI) Control Technician ID - PIAYA L Lab Interpretation Abnormal (test code = 04295-4) [facility] [id number] 15:52:11 Test Item Value Reference Range Interpretation Comments Protein, Total (test 6.8 See_Comment [Autom ated code = 2885-2) message] The system which generated this result transmit levi reference range : 6.0 - 8.3 gm/dL . The reference range was not u sed to interpret th is result as normal/abnormal . Albumin (test code = 2.6 g/dL 3.5-5.0 L 75333-2) Total Bilirubin (test 0.3 mg/dL 0.2-1.2 code = 1974-05) Bilirubin, Direct 0.2 mg/dL 0.1-0.5 (test code = 1967-10) Alkaline Phosphatase 90 U/L 40-150 (test code = 6768-6) AST (test code = 17 U/L 1919-8) ALT (test code = 11 U/L 1742-6) BRANDI (test code = BRANDI) Control Technician ID - PIAYA L Lab Interpretation Abnormal (test code = 15625-5) [facility] [id number] 15:52:11 Test Item Value Reference Range Interpretation Comments Protein, Total (test 6.8 See_Comment [Autom ated code = 2885-2) message] The system which generated this result transmit levi reference range : 6.0 - 8.3 gm/dL . The reference range was not u sed to interpret th is result as normal/abnormal . Albumin (test code = 2.6 g/dL 3.5-5.0 L 18321-3) Total Bilirubin (test 0.3 mg/dL 0.2-1.2 code = 1974-) Bilirubin, Direct 0.2 mg/dL 0.1-0.5 (test code = 1967-10) Alkaline Phosphatase 90 U/L 40-150 (test code = 6768-6) AST (test code = 17 U/L 5-34 1920-8) ALT (test code = 11 U/L 6-55 1742-6) BRANDI (test code = BRANDI) Control Technician ID - PIAYA L Lab Interpretation Abnormal (test code = 54640-8) [facility] [id number] 15:52:11 Test Item Value Reference Range Interpretation Comments Protein, Total (test 6.8 See_Comment [Autom ated code = 2885-2) message] The system which generated this result transmit levi reference range : 6.0 - 8.3 gm/dL . The reference range was not u sed to interpret th is result as normal/abnormal . Albumin (test code = 2.6 g/dL 3.5-5.0 L 36652-0) Total Bilirubin (test 0.3 mg/dL 0.2-1.2 code = 1974-) Bilirubin, Direct 0.2 mg/dL 0.1-0.5 (test code = 1967-) Alkaline Phosphatase 90 U/L 40-150 (test code = 6768-6) AST (test code = 17 U/L 5-34 1920-8) ALT (test code = 11 U/L 655 1742-6) BRANDI (test code = BRANDI) Control Technician ID - PIAYA L Lab Interpretation Abnormal (test code = 04487-3) [facility] [id number] 15:52:11 Test Item Value Reference Range Interpretation Comments Protein, Total (test 6.8 See_Comment [Autom ated code = 2885-2) message] The system which generated this result transmit levi reference range : 6.0 - 8.3 gm/dL . The reference range was not u sed to interpret th is result as normal/abnormal . Albumin (test code = 2.6 g/dL 3.5-5.0 L 35361-4) Total Bilirubin (test 0.3 mg/dL 0.2-1.2 code = 1974-) Bilirubin, Direct 0.2 mg/dL 0.1-0.5 (test code = 1967-) Alkaline Phosphatase 90 U/L 40-150 (test code = 6768-6) AST (test code = 17 U/L 5-34 1920-8) ALT (test code = 11 U/L 655 1742-6) BRANDI (test code = BRANDI) Control Technician ID - PIAYA L Lab Interpretation Abnormal (test code = 39117-1) [facility] [id number] 15:52:11 Test Item Value Reference Range Interpretation Comments Protein, Total (test 6.8 See_Comment [Autom ated code = 2885-2) message] The system which generated this result transmit levi reference range : 6.0 - 8.3 gm/dL . The reference range was not u sed to interpret th is result as normal/abnormal . Albumin (test code = 2.6 g/dL 3.5-5.0 L 04023-1) Total Bilirubin (test 0.3 mg/dL 0.2-1.2 code = 1974-) Bilirubin, Direct 0.2 mg/dL 0.1-0.5 (test code = 1967-) Alkaline Phosphatase 90 U/L 40-150 (test code = 6768-6) AST (test code = 17 U/L 1919-8) ALT (test code = 11 U/L 1742-6) BRANDI (test code = BRANDI) Control Technician ID - PIAYA L Lab Interpretation Abnormal (test code = 54364-8) [facility] [id number] 15:52:11 Test Item Value Reference Range Interpretation Comments Protein, Total (test 6.8 See_Comment [Autom ated code = 2885-2) message] The system which generated this result transmit levi reference range : 6.0 - 8.3 gm/dL . The reference range was not u sed to interpret th is result as normal/abnormal . Albumin (test code = 2.6 g/dL 3.5-5.0 L 09861-4) Total Bilirubin (test 0.3 mg/dL 0.2-1.2 code = 1974-) Bilirubin, Direct 0.2 mg/dL 0.1-0.5 (test code = 1967-) Alkaline Phosphatase 90 U/L 40-150 (test code = 6768-6) AST (test code = 17 U/L 5-34 1920-8) ALT (test code = 11 U/L 655 1742-6) BRANDI (test code = BRANDI) Control Technician ID - PIAYAD L Lab Interpretation Abnormal (test code = 29522-8) [facility] [id number] 15:52:11 Test Item Value Reference Range Interpretation Comments Protein, Total (test 6.8 See_Comment [Autom ated code = 2885-2) message] The system which generated this result transmit levi reference range : 6.0 - 8.3 gm/dL . The reference range was not u sed to interpret th is result as normal/abnormal . Albumin (test code = 2.6 g/dL 3.5-5.0 L 68163-8) Total Bilirubin (test 0.3 mg/dL 0.2-1.2 code = 1974-) Bilirubin, Direct 0.2 mg/dL 0.1-0.5 (test code = 1967-) Alkaline Phosphatase 90 U/L 40-150 (test code = 6768-6) AST (test code = 17 U/L 192-8) ALT (test code = 11 U/L 1742-6) BRANDI (test code = BRANDI) Control Technician ID - LIANA L Lab Interpretation Abnormal (test code = 24233-9) [facility] [id number] 15:52:11 Test Item Value Reference Range Interpretation Comments Protein, Total (test 6.8 See_Comment [Autom ated code = 2885-2) message] The system which generated this result transmit levi reference range : 6.0 - 8.3 gm/dL . The reference range was not u sed to interpret th is result as normal/abnormal . Albumin (test code = 2.6 g/dL 3.5-5.0 L 40079-5) Total Bilirubin (test 0.3 mg/dL 0.2-1.2 code = 1974-) Bilirubin, Direct 0.2 mg/dL 0.1-0.5 (test code = 1967-) Alkaline Phosphatase 90 U/L 40-150 (test code = 6768-6) AST (test code = 17 U/L 5-34 1920-8) ALT (test code = 11 U/L 1742-6) BRANDI (test code = BRANDI) Control Technician ID - PIAYA L Lab Interpretation Abnormal (test code = 78892-7) [facility] [id number] 15:52:11 Test Item Value Reference Range Interpretation Comments Protein, Total (test 6.8 See_Comment [Autom ated code = 2885-2) message] The system which generated this result transmit levi reference range : 6.0 - 8.3 gm/dL . The reference range was not u sed to interpret th is result as normal/abnormal . Albumin (test code = 2.6 g/dL 3.5-5.0 L 28422-6) Total Bilirubin (test 0.3 mg/dL 0.2-1.2 code = 1974-) Bilirubin, Direct 0.2 mg/dL 0.1-0.5 (test code = 1967-) Alkaline Phosphatase 90 U/L 40-150 (test code = 6768-6) AST (test code = 17 U/L 1919-8) ALT (test code = 11 U/L 1742-6) BRANDI (test code = BRANDI) Control Technician ID - PIAYA L Lab Interpretation Abnormal (test code = 43990-2) [facility] [id number] 15:52:11 Test Item Value Reference Range Interpretation Comments Protein, Total (test 6.8 See_Comment [Autom ated code = 2885-2) message] The system which generated this result transmit levi reference range : 6.0 - 8.3 gm/dL . The reference range was not u sed to interpret th is result as normal/abnormal . Albumin (test code = 2.6 g/dL 3.5-5.0 L 25733-7) Total Bilirubin (test 0.3 mg/dL 0.2-1.2 code = 1974-) Bilirubin, Direct 0.2 mg/dL 0.1-0.5 (test code = 1967-) Alkaline Phosphatase 90 U/L 40-150 (test code = 6768-6) AST (test code = 17 U/L 192-8) ALT (test code = 11 U/L 1742-6) BRANDI (test code = BRANDI) Control Technician ID - PIAYA L Lab Interpretation Abnormal (test code = 13260-9) [facility] [id number] 15:52:11 Test Item Value Reference Range Interpretation [...] (test code = 11 U/L 6-55 347) Control Technician ID - LIANA LHeparin [id number] 12:21:31 Test Item Value Reference Range Interpretation Comments Heparin Ab (test code Negative Negative = 3267-2) Heparin Antibody 0.247 <0.400 Optical Density (test code = 2659) 4T Total Score (test 4 code = 2661) BRANDI (test code = BRANDI) Probability of HIT based on scoring system: 6-8 = High probability; 4-5 = intermediate probability; 0-3 = low probability [facility] [id number] 12:21:31 Test Item Value Reference Range Interpretation Comments Heparin Ab (test code Negative Negative = 3267-2) Heparin Antibody 0.247 <0.400 Optical Density (test code = 2659) 4T Total Score (test 4 code = 2661) BRANDI (test code = BRANDI) Probability of HIT based on scoring system: 6-8 = High probability; 4-5 = intermediate probability; 0-3 = low probability [facility] [id number] 12:21:31 Test Item Value Reference Range Interpretation Comments Heparin Ab (test code Negative Negative = 3267-2) Heparin Antibody 0.247 <0.400 Optical Density (test code = 2659) 4T Total Score (test 4 code = 2661) BRANDI (test code = BRANDI) Probability of HIT based on scoring system: 6-8 = High probability; 4-5 = intermediate probability; 0-3 = low probability [facility] [id number] 12:21:31 Test Item Value Reference Range Interpretation Comments Heparin Ab (test code Negative Negative = 3267-2) Heparin Antibody 0.247 <0.400 Optical Density (test code = 2659) 4T Total Score (test 4 code = 2661) BRANDI (test code = BRANDI) Probability of HIT based on scoring system: 6-8 = High probability; 4-5 = intermediate probability; 0-3 = low probability [facility] [id number] 12:21:31 Test Item Value Reference Range Interpretation Comments Heparin Ab (test code Negative Negative = 3267-2) Heparin Antibody 0.247 <0.400 Optical Density (test code = 2659) 4T Total Score (test 4 code = 2661) BRANDI (test code = BRANDI) Probability of HIT based on scoring system: 6-8 = High probability; 4-5 = intermediate probability; 0-3 = low probability [facility] [id number] 12:21:31 Test Item Value Reference Range Interpretation Comments Heparin Ab (test code Negative Negative = 3267-2) Heparin Antibody 0.247 <0.400 Optical Density (test code = 2659) 4T Total Score (test 4 code = 2661) BRANDI (test code = BRANDI) Probability of HIT based on scoring system: 6-8 = High probability; 4-5 = intermediate probability; 0-3 = low probability [facility] [id number] 12:21:31 Test Item Value Reference Range Interpretation Comments Heparin Ab (test code Negative Negative = 3267-2) Heparin Antibody 0.247 <0.400 Optical Density (test code = 2659) 4T Total Score (test 4 code = 2661) BRANDI (test code = BRANDI) Probability of HIT based on scoring system: 6-8 = High probability; 4-5 = intermediate probability; 0-3 = low probability [facility] [id number] 12:21:31 Test Item Value Reference Range Interpretation Comments Heparin Ab (test code Negative Negative = 3267-2) Heparin Antibody 0.247 <0.400 Optical Density (test code = 2659) 4T Total Score (test 4 code = 2661) BRANDI (test code = BRANDI) Probability of HIT based on scoring system: 6-8 = High probability; 4-5 = intermediate probability; 0-3 = low probability [facility] [id number] 12:21:31 Test Item Value Reference Range Interpretation Comments Heparin Ab (test code Negative Negative = 3267-2) Heparin Antibody 0.247 <0.400 Optical Density (test code = 2659) 4T Total Score (test 4 code = 2661) BRANDI (test code = BRANDI) Probability of HIT based on scoring system: 6-8 = High probability; 4-5 = intermediate probability; 0-3 = low probability [facility] [id number] 12:21:31 Test Item Value Reference Range Interpretation Comments Heparin Ab (test code Negative Negative = 3267-2) Heparin Antibody 0.247 <0.400 Optical Density (test code = 2659) 4T Total Score (test 4 code = 2661) BRANDI (test code = BRANDI) Probability of HIT based on scoring system: 6-8 = High probability; 4-5 = intermediate probability; 0-3 = low probability [facility] [id number] 12:21:31 Test Item Value Reference Range Interpretation Comments Heparin Ab (test code Negative Negative = 3267-2) Heparin Antibody 0.247 <0.400 Optical Density (test code = 2659) 4T Total Score (test 4 code = 2661) BRANDI (test code = BRANDI) Probability of HIT based on scoring system: 6-8 = High probability; 4-5 = intermediate probability; 0-3 = low probability [facility] [id number] 12:21:31 Test Item Value Reference Range Interpretation Comments Heparin Ab (test code Negative Negative = 3267-2) Heparin Antibody 0.247 <0.400 Optical Density (test code = 2659) 4T Total Score (test 4 code = 2661) BRANDI (test code = BRANDI) Probability of HIT based on scoring system: 6-8 = High probability; 4-5 = intermediate probability; 0-3 = low probability [facility] [id number] 12:21:31 Test Item Value Reference Range Interpretation Comments Heparin Ab (test code Negative Negative = 3267-2) Heparin Antibody 0.247 <0.400 Optical Density (test code = 2659) 4T Total Score (test 4 code = 2661) BRANDI (test code = BRANDI) Probability of HIT based on scoring system: 6-8 = High probability; 4-5 = intermediate probability; 0-3 = low probability [facility] [id number] 12:21:31 Test Item Value Reference Range Interpretation Comments Heparin Ab (test code Negative Negative = 3267-2) Heparin Antibody 0.247 <0.400 Optical Density (test code = 2659) 4T Total Score (test 4 code = 2661) BRANDI (test code = BRANDI) Probability of HIT based on scoring system: 6-8 = High probability; 4-5 = intermediate probability; 0-3 = low probability [facility] [id number] 12:21:31 Test Item Value Reference Range Interpretation Comments Heparin Ab (test code Negative Negative = 3267-2) Heparin Antibody 0.247 <0.400 Optical Density (test code = 2659) 4T Total Score (test 4 code = 2661) BRANDI (test code = BRANDI) Probability of HIT based on scoring system: 6-8 = High probability; 4-5 = intermediate probability; 0-3 = low probability [facility] [id number] 12:21:31 Test Item Value Reference Range Interpretation Comments Heparin Ab (test code Negative Negative = 3267-2) Heparin Antibody 0.247 <0.400 Optical Density (test code = 2659) 4T Total Score (test 4 code = 2661) BRANDI (test code = BRANDI) Probability of HIT based on scoring system: 6-8 = High probability; 4-5 = intermediate probability; 0-3 = low probability [facility] [id number] 12:21:31 Test Item Value Reference Range Interpretation Comments Heparin Ab (test code Negative Negative = 3267-2) Heparin Antibody 0.247 <0.400 Optical Density (test code = 2659) 4T Total Score (test 4 code = 2661) BRANDI (test code = BRANDI) Probability of HIT based on scoring system: 6-8 = High probability; 4-5 = intermediate probability; 0-3 = low probability [facility] [id number] 12:21:31 Test Item Value Reference Range Interpretation Comments HEPARIN ANTIBODY (BEAKER) (test code Negative Negative = 646) HEPARIN ANTIBODY OD (BEAKER) (test 0.247 <0.400 code = 0649) 4T TOTAL SCORE (BEAKER) (test code = 4 8099) Probability of HIT based on scoring system: 6-8 = High probability; 4-5 = intermediate probability; 0-3 = [id number] 08:07:00 Test Item Value Reference Range Interpretation Comments ABO Grouping (test code = 2588) O Rh Factor (test code = 2589) [facility]2022-03-14 08:07:00 Test Item Value Reference Range Interpretation Comments ABO Grouping (test code = 2588) O Rh Factor (test code = 2589) [facility]2022-03-14 08:07:00 Test Item Value Reference Range Interpretation Comments ABO Grouping (test code = 2588) O Rh Factor (test code = 2589) [facility]2022-03-14 08:07:00 Test Item Value Reference Range Interpretation Comments ABO Grouping (test code = 2588) O Rh Factor (test code = 2589) [facility]2022-03-14 08:07:00 Test Item Value Reference Range Interpretation Comments ABO Grouping (test code = 2588) O Rh Factor (test code = 2589) [facility]2022-03-14 08:07:00 Test Item Value Reference Range Interpretation Comments ABO Grouping (test code = 2588) O Rh Factor (test code = 2589) [facility]2022-03-14 08:07:00 Test Item Value Reference Range Interpretation Comments ABO Grouping (test code = 2588) O Rh Factor (test code = 2589) [facility]2022-03-14 08:07:00 Test Item Value Reference Range Interpretation Comments ABO Grouping (test code = 2588) O Rh Factor (test code = 2589) [facility]2022-03-14 08:07:00 Test Item Value Reference Range Interpretation Comments ABO Grouping (test code = 2588) O Rh Factor (test code = 2589) [facility]2022-03-14 08:07:00 Test Item Value Reference Range Interpretation Comments ABO Grouping (test code = 2588) O Rh Factor (test code = 2589) [facility], [id number] 08:07:00 Test Item Value Reference Range Interpretation Comments ABO Grouping (test code = 2588) O Rh Factor (test code = 2589) [facility], [id number] 08:07:00 Test Item Value Reference Range Interpretation Comments ABO Grouping (test code = 2588) O Rh Factor (test code = 2589) [facility], [id number] 08:07:00 Test Item Value Reference Range Interpretation Comments ABO Grouping (test code = 2588) O Rh Factor (test code = 2589) [facility], [id number] 08:07:00 Test Item Value Reference Range Interpretation Comments ABO Grouping (test code = 2588) O Rh Factor (test code = 2589) [facility], [id number] 08:07:00 Test Item Value Reference Range Interpretation Comments ABO Grouping (test code = 2588) O Rh Factor (test code = 2589) [facility], [id number] 08:07:00 Test Item Value Reference Range Interpretation Comments ABO Grouping (test code = 2588) O Rh Factor (test code = 2589) [facility], [id number] 08:07:00 Test Item Value Reference Range Interpretation Comments ABO Grouping (test code = 2588) O Rh Factor (test code = 2589) [facility] [id number] 05:19:52 Test Item Value Reference Range Interpretation [...] S NOT APPLICABLE FOR DIALYSIS PATIEN TS. Control Technician ID - PIAYAD [id number] 05:09:04 Test Item Value Reference Range Interpretation Comments PHOSPHORUS (BEAKER) (test code = 4.1 mg/dL 2.3-4.7 604) Control Technician ID - LIANA [id number] 05:09:03 Test Item Value Reference Range Interpretation Comments MAGNESIUM (BEAKER) (test code = 2.0 mg/dL 1.6-2.6 627) Control Technician ID - BURKEAYAD LPT/[id number] 04:53:34 Test Item Value Reference Interpretation Comments Range Protime (test code = 13.7 See_Comment [Autom ated 3142-2) message] The system which generated this result transmitted reference range : 11.9 - 14.2 seconds. The reference range was not used to interpret this result as normal/abnormal . INR (test code = 1.07 See_Comment [Automated 9031-6) message] The system which generated this result transmitted reference range : <=5.90. The reference range was not used to interpret this result as normal/abnormal . PTT (test code = 32.5 See_Comment [Automated 16101-4) message] The system which generated this result [...] valves. Lab Interpretation Normal (test code = 87318-5) [facility][id number] 04:53:34 Test Item Value Reference Interpretation Comments [...] PTT (test code = 32.5 See_Comment [Automated 59494-1) message] The system which generated this result [...] valves. Lab Interpretation Normal (test code = 71136-2) [facility]PT/[id number] 04:53:34 Test Item Value Reference Interpretation Comments [...] PTT (test code = 32.5 See_Comment [Automated 46968-6) message] The system which generated this result [...] valves. Lab Interpretation Normal (test code = 57391-5) [facility]PT/[id number] 04:53:34 Test Item Value Reference Interpretation Comments [...] PTT (test code = 32.5 See_Comment [Automated 82064-6) message] The system which generated this result [...] valves. Lab Interpretation Normal (test code = 56910-7) [facility]PT/[id number] 04:53:34 Test Item Value Reference Interpretation Comments [...] PTT (test code = 32.5 See_Comment [Automated 75856-4) message] The system which generated this result [...] valves. Lab Interpretation Normal (test code = 27988-2) [facility]/[id number] 04:53:34 Test Item Value Reference Interpretation Comments [...] PTT (test code = 32.5 See_Comment [Automated 82575-2) message] The system which generated this result [...] valves. Lab Interpretation Normal (test code = 01554-8) [facility]PT/[id number] 04:53:34 Test Item Value Reference Interpretation Comments [...] PTT (test code = 32.5 See_Comment [Automated 97017-2) message] The system which generated this result [...] valves. Lab Interpretation Normal (test code = 53864-6) [facility]PT/[id number] 04:53:34 Test Item Value Reference Interpretation Comments Range Protime (test code = 13.7 See_Comment [Autom [employer]2-2) message] The system which generated this result transmitted reference range : 11.9 - 14.2 seconds. The reference range was not used to interpret this result as normal/abnormal . INR (test code = 1.07 See_Comment [Automated [employer]6) message] The system which generated this result transmitted reference range : <=5.90. The reference range was not used to interpret this result as normal/abnormal . PTT (test code = 32.5 See_Comment [Automated 10815-8) message] The system which generated this result [...] valves. Lab Interpretation Normal (test code = 36377-9) [id number]:53:34 Test Item Value Reference Interpretation Comments Range Protime (test code = 13.7 See_Comment [Autom ated 5902-2) message] The system which generated this result transmitted reference range : 11.9 - 14.2 seconds. The reference range was not used to interpret this result as normal/abnormal . INR (test code = 1.07 See_Comment [Automated [employer]1-6) message] The system which generated this result transmitted reference range : <=5.90. The reference range was not used to interpret this result as normal/abnormal . PTT (test code = 32.5 See_Comment [Automated 21462-4) message] The system which generated this result [...] valves. Lab Interpretation Normal (test code = 71642-3) [facility][id number] 04:53:34 Test Item Value Reference Interpretation Comments Range Protime (test code = 13.7 See_Comment [Autom ated 5902-2) message] The system which generated this result transmitted reference range : 11.9 - 14.2 seconds. The reference range was not used to interpret this result as normal/abnormal . INR (test code = 1.07 See_Comment [Automated 7371-6) message] The system which generated this result transmitted reference range : <=5.90. The reference range was not used to interpret this result as normal/abnormal . PTT (test code = 32.5 See_Comment [Automated 34095-9) message] The system which generated this result [...] valves. Lab Interpretation Normal (test code = 37678-3) [id number] 04:53:34 Test Item Value Reference Interpretation Comments [...] PTT (test code = 32.5 See_Comment [Automated 33996-7) message] The system which generated this result [...] valves. Lab Interpretation Normal (test code = 96206-2) [facility][id number] 04:53:34 Test Item Value Reference Interpretation Comments [...] PTT (test code = 32.5 See_Comment [Automated 17938-1) message] The system which generated this result [...] valves. Lab Interpretation Normal (test code = 55676-7) [facility][id number] 04:53:34 Test Item Value Reference Interpretation Comments [...] PTT (test code = 32.5 See_Comment [Automated 49162-4) message] The system which generated this result [...] valves. Lab Interpretation Normal (test code = 14855-7) [facility][id number] 04:53:34 Test Item Value Reference Interpretation Comments [...] PTT (test code = 32.5 See_Comment [Automated 96487-3) message] The system which generated this result [...] valves. Lab Interpretation Normal (test code = 48383-2) [facility][id number] 04:53:34 Test Item Value Reference Interpretation Comments Range Protime (test code = 13.7 See_Comment [Autom ated 5902-2) message] The system which generated this result transmitted reference range : 11.9 - 14.2 seconds. The reference range was not used to interpret this result as normal/abnormal . INR (test code = 1.07 <=5.90 6301-6) PTT (test code = 32.5 See_Comment [Automated 45696-6) message] The system which generated this result [...] valves. Lab Interpretation Normal (test code = 75119-7) [facility][id number] 04:53:34 Test Item Value Reference Interpretation Comments [...] PTT (test code = 32.5 See_Comment [Automated 77679-0) message] The system which generated this result [...] valves. Lab Interpretation Normal (test code = 06035-4) [facility][id number] 04:53:34 Test Item Value Reference Interpretation Comments Range Protime (test code = 13.7 See_Comment [Autom ated 5902-2) message] The system which generated this result transmitted reference range : 11.9 - 14.2 seconds. The reference range was not used to interpret this result as normal/abnormal . INR (test code = 1.07 See_Comment [Automated 2951-6) message] The system which generated this result transmitted reference range : <=5.90. The reference range was not used to interpret this result as normal/abnormal . PTT (test code = 32.5 See_Comment [Automated 16846-7) message] The system which generated this result [...] valves. Lab Interpretation Normal (test code = 10606-5) [facility][id number] 04:53:34 Test Item Value Reference Range Interpretation [...] mechanical heart valves.CBC W/PLT COUNT & AUTO [id number] 04:46:52 Test Item Value Reference Range Interpretation [...] PERCENT (BEAKER) (test code = 2801) POCT-GLUCOSE [id number] 11:21:11 Test Item Value Reference Range Interpretation Comments POC-GLUCOSE METER 204 mg/dL 70-110 H : TESTED A T [facility] 6720 (BEAKER) (test code = [facility], 1538) 74295: Control Technician/Techni kelle ID = [id number] for Meeta Mcfarlane POCT-GLUCOSE [id number] 07:42:50 Test Item Value Reference Range Interpretation Comments POC-GLUCOSE METER 226 mg/dL 70-110 H : TESTED A T [facility] 6720 (BEAKER) (test code = [facility], 1538) 42654: Control Technician/Techni kelle ID = [id number] for Meeta Mcfarlane BASIC METABOLIC [id number] 05:13:30 Test Item Value Reference Range Interpretation [...] S NOT APPLICABLE FOR DIALYSIS PATIEN TS. Control Technician ID - LIANA [id number] 05:11:53 Test Item Value Reference Range Interpretation Comments PHOSPHORUS (BEAKER) (test code = 3.3 mg/dL 2.3-4.7 604) Control Technician ID - LIANA [id number] 05:11:52 Test Item Value Reference Range Interpretation Comments MAGNESIUM (BEAKER) (test code = 2.0 mg/dL 1.6-2.6 627) Control Technician ID - PIAYA LCBC W/PLT COUNT & AUTO [id number] 04:23:17 Test Item Value Reference Range Interpretation [...] PERCENT (BEAKER) (test code = 2801) POCT-GLUCOSE [id number] 17:21:48 Test Item Value Reference Range Interpretation Comments POC-GLUCOSE METER 209 mg/dL 70-110 H : TESTED A T [facility] 6720 (BEAKER) (test code = [facility], 1538) 84866: Control Technician/Techni kelle ID = [id number] for PADMINI ALMANZAR POCT-GLUCOSE [id number] 12:56:45 Test Item Value Reference Range Interpretation Comments POC-GLUCOSE METER 81 mg/dL 70-110 : TESTED A T [facility] 6720 (BEAKER) (test code = [facility], 1538) 15964: Control Technician/Techni kelle ID = [id number] for PADMINI GRAY [id number] 09:21:04 Test Item Value Reference Range Interpretation Comments Ferritin (test code = 1418.54 ng/mL 5.00-275.00 H 2276-4) BRANDI (test code = BRANDI) Control Technician ID - HIEN M Lab Interpretation (test Abnormal code = 93678-9) [facility] 09:21:04 Test Item Value Reference Range Interpretation Comments Ferritin (test code = 1418.54 ng/mL 5.00-275.00 H 2276-4) BRANDI (test code = BRANDI) Control Technician ID - HIEN M Lab Interpretation (test Abnormal code = 76987-7) [facility] 09:21:04 Test Item Value Reference Range Interpretation Comments Ferritin (test code = 1418.54 ng/mL 5.00-275.00 H 2276-4) BRANDI (test code = BRANDI) Control Technician ID - HIEN M Lab Interpretation (test Abnormal code = 71664-7) [facility] 09:21:04 Test Item Value Reference Range Interpretation Comments Ferritin (test code = 1418.54 ng/mL 5.00-275.00 H 2276-4) BRANDI (test code = BRANDI) Control Technician ID - HIEN M Lab Interpretation (test Abnormal code = 89893-2) [facility] 09:21:04 Test Item Value Reference Range Interpretation Comments Ferritin (test code = 1418.54 ng/mL 5.00-275.00 H 2276-4) BRANDI (test code = BRANDI) Control Technician ID - HIEN M Lab Interpretation (test Abnormal code = 97674-5) [facility] 09:21:04 Test Item Value Reference Range Interpretation Comments Ferritin (test code = 1418.54 ng/mL 5.00-275.00 H 2276-4) BRANDI (test code = BRANDI) Control Technician ID - HIEN M Lab Interpretation (test Abnormal code = 02133-8) [facility]2022-03-12 09:21:04 Test Item Value Reference Range Interpretation Comments Ferritin (test code = 1418.54 ng/mL 5.00-275.00 H 2276-4) BRANDI (test code = BRANDI) Control Technician ID - HIEN M Lab Interpretation (test Abnormal code = 92250-8) [facility] 09:21:04 Test Item Value Reference Range Interpretation Comments Ferritin (test code = 1418.54 ng/mL 5.00-275.00 H 2276-4) BRANDI (test code = BRANDI) Control Technician ID - HIEN M Lab Interpretation (test Abnormal code = 61985-7) [facility] 09:21:04 Test Item Value Reference Range Interpretation Comments Ferritin (test code = 1418.54 ng/mL 5.00-275.00 H 2276-4) BRANDI (test code = BRANDI) Control Technician ID - HIEN M Lab Interpretation (test Abnormal code = 01738-4) [facility]2022-03-12 09:21:04 Test Item Value Reference Range Interpretation Comments Ferritin (test code = 1418.54 ng/mL 5.00-275.00 H 2276-4) BRANDI (test code = BRANDI) Control Technician ID - HIEN M Lab Interpretation (test Abnormal code = 66478-3) [facility] 09:21:04 Test Item Value Reference Range Interpretation Comments Ferritin (test code = 1418.54 ng/mL 5.00-275.00 H 2276-4) BRANDI (test code = BRANDI) Control Technician ID - HIEN M Lab Interpretation (test Abnormal code = 06063-8) [facility] 09:21:04 Test Item Value Reference Range Interpretation Comments Ferritin (test code = 1418.54 ng/mL 5.00-275.00 H 2276-4) BRANDI (test code = BRANDI) Control Technician ID - HIEN M Lab Interpretation (test Abnormal code = 75683-5) [facility]2022-03-12 09:21:04 Test Item Value Reference Range Interpretation Comments Ferritin (test code = 1418.54 ng/mL 5.00-275.00 H 2276-4) BRANDI (test code = BRANDI) Control Technician ID - HIEN M Lab Interpretation (test Abnormal code = 55659-1) [facility] 09:21:04 Test Item Value Reference Range Interpretation Comments Ferritin (test code = 1418.54 ng/mL 5.00-275.00 H 2276-4) BRANDI (test code = BRANDI) Control Technician ID - HIEN M Lab Interpretation (test Abnormal code = 00454-1) [facility] 09:21:04 Test Item Value Reference Range Interpretation Comments Ferritin (test code = 1418.54 ng/mL 5.00-275.00 H 2276-4) BRANDI (test code = BRANDI) Control Technician ID - HIEN M Lab Interpretation (test Abnormal code = 67227-0) [facility] 09:21:04 Test Item Value Reference Range Interpretation Comments Ferritin (test code = 1418.54 ng/mL 5.00-275.00 H 2276-4) BRANDI (test code = BRANDI) Control Technician ID - HIEN M Lab Interpretation (test Abnormal code = 88420-6) [facility] 09:21:04 Test Item Value Reference Range Interpretation Comments Ferritin (test code = 1418.54 ng/mL 5.00-275.00 H 2276-4) BRANDI (test code = BRANDI) Control Technician ID - HIEN Hernandes Lab Interpretation (test Abnormal code = 78443-6) [facility] 09:21:04 Test Item Value Reference Range Interpretation Comments FERRITIN (BEAKER) (test code = 1418.54 ng/mL 5.00-275.00 H 361) Control Technician NORAH Acostaon, TIBC, % sat. (without ferritin)2021-06-13 09:01:39 Test Item Value Reference Range Interpretation Comments Iron (test code = 2498-4) 75.0 ug/dL 40.0-160.0 TIBC (test code = 2500-7) 145 ug/dL 250-450 L Iron % Saturation (test 52 % 20-55 code = 2502-3) BRANDI (test code = BRANDI) Control Technician ID - HIEN Hernandes Lab Interpretation (test Abnormal code = 72009-2) [facility], TIBC, % sat. (without ferritin)2021-06-13 09:01:39 Test Item Value Reference Range Interpretation Comments Iron (test code = 2498-4) 75.0 ug/dL 40.0-160.0 TIBC (test code = 2500-7) 145 ug/dL 250-450 L Iron % Saturation (test 52 % 20-55 code = 2502-3) BRANDI (test code = BRANDI) Control Technician ID - HIEN Hernandes Lab Interpretation (test Abnormal code = 21839-4) [facility], [facility], % sat. (without ferritin)2021-06-13 09:01:39 Test Item Value Reference Range Interpretation Comments Iron (test code = 2498-4) 75.0 ug/dL 40.0-160.0 TIBC (test code = 2500-7) 145 ug/dL 250-450 L Iron % Saturation (test 52 % 20-55 code = 2502-3) BRANDI (test code = BRANDI) Control Technician ID - HIEN Hernandes Lab Interpretation (test Abnormal code = 79289-4) [facility], [facility], % sat. (without ferritin)2021-06-13 09:01:39 Test Item Value Reference Range Interpretation Comments Iron (test code = 2498-4) 75.0 ug/dL 40.0-160.0 TIBC (test code = 2500-7) 145 ug/dL 250-450 L Iron % Saturation (test 52 % 20-55 code = 2502-3) BRANDI (test code = BRANDI) Control Technician ID - HIEN M Lab Interpretation (test Abnormal code = 24126-8) [facility], TIBC, % sat. (without ferritin)2021-06-13 09:01:39 Test Item Value Reference Range Interpretation Comments Iron (test code = 2498-4) 75.0 ug/dL 40.0-160.0 TIBC (test code = 2500-7) 145 ug/dL 250-450 L Iron % Saturation (test 52 % 20-55 code = 2502-3) BRANDI (test code = BRANDI) Control Technician ID - HIEN M Lab Interpretation (test Abnormal code = 23347-4) [facility], TIBC, % sat. (without ferritin)2021-06-13 09:01:39 Test Item Value Reference Range Interpretation Comments Iron (test code = 2498-4) 75.0 ug/dL 40.0-160.0 TIBC (test code = 2500-7) 145 ug/dL 250-450 L Iron % Saturation (test 52 % 20-55 code = 2502-3) BRANDI (test code = BRANDI) Control Technician ID - HIEN M Lab Interpretation (test Abnormal code = 31951-7) [facility], TIBC, % sat. (without ferritin)2021-06-13 09:01:39 Test Item Value Reference Range Interpretation Comments Iron (test code = 2498-4) 75.0 ug/dL 40.0-160.0 TIBC (test code = 2500-7) 145 ug/dL 250-450 L Iron % Saturation (test 52 % 20-55 code = 2502-3) BRANDI (test code = BRANDI) Control Technician ID - HIEN M Lab Interpretation (test Abnormal code = 69193-5) [facility], TIBC, % sat. (without ferritin)2021-06-13 09:01:39 Test Item Value Reference Range Interpretation Comments Iron (test code = 2498-4) 75.0 ug/dL 40.0-160.0 TIBC (test code = 2500-7) 145 ug/dL 250-450 L Iron % Saturation (test 52 % 20-55 code = 2502-3) BRANDI (test code = BRANDI) Control Technician ID - HIEN M Lab Interpretation (test Abnormal code = 19303-3) [facility], TIBC, % sat. (without ferritin)2021-06-13 09:01:39 Test Item Value Reference Range Interpretation Comments Iron (test code = 2498-4) 75.0 ug/dL 40.0-160.0 TIBC (test code = 2500-7) 145 ug/dL 250-450 L Iron % Saturation (test 52 % 20-55 code = 2502-3) BRANDI (test code = BRANDI) Control Technician ID - HIEN M Lab Interpretation (test Abnormal code = 74743-1) [facility], TIBC, % sat. (without ferritin)2021-06-13 09:01:39 Test Item Value Reference Range Interpretation Comments Iron (test code = 2498-4) 75.0 ug/dL 40.0-160.0 TIBC (test code = 2500-7) 145 ug/dL 250-450 L Iron % Saturation (test 52 % 20-55 code = 2502-3) BRANDI (test code = BRANDI) Control Technician ID - HIEN M Lab Interpretation (test Abnormal code = 97504-2) [facility], TIBC, % sat. (without ferritin)2021-06-13 09:01:39 Test Item Value Reference Range Interpretation Comments Iron (test code = 2498-4) 75.0 ug/dL 40.0-160.0 TIBC (test code = 2500-7) 145 ug/dL 250-450 L Iron % Saturation (test 52 % 20-55 code = 2502-3) BRANDI (test code = BRANDI) Control Technician ID - HIEN M Lab Interpretation (test Abnormal code = 01984-8) [facility], TIBC, % sat. (without ferritin)2021-06-13 09:01:39 Test Item Value Reference Range Interpretation Comments Iron (test code = 2498-4) 75.0 ug/dL 40.0-160.0 TIBC (test code = 2500-7) 145 ug/dL 250-450 L Iron % Saturation (test 52 % 20-55 code = 2502-3) BRANDI (test code = BRANDI) Control Technician ID - HIEN M Lab Interpretation (test Abnormal code = 39666-6) [facility], TIBC, % sat. (without ferritin)2021-06-13 09:01:39 Test Item Value Reference Range Interpretation Comments Iron (test code = 2498-4) 75.0 ug/dL 40.0-160.0 TIBC (test code = 2500-7) 145 ug/dL 250-450 L Iron % Saturation (test 52 % 20-55 code = 2502-3) BRANDI (test code = BRANDI) Control Technician ID - HIEN M Lab Interpretation (test Abnormal code = 07546-5) [facility], TIBC, % sat. (without ferritin)2021-06-13 09:01:39 Test Item Value Reference Range Interpretation Comments Iron (test code = 2498-4) 75.0 ug/dL 40.0-160.0 TIBC (test code = 2500-7) 145 ug/dL 250-450 L Iron % Saturation (test 52 % 20-55 code = 2502-3) BRANDI (test code = BRANDI) Control Technician ID - HIEN M Lab Interpretation (test Abnormal code = 98071-7) [facility], TIBC, % sat. (without ferritin)2021-06-13 09:01:39 Test Item Value Reference Range Interpretation Comments Iron (test code = 2498-4) 75.0 ug/dL 40.0-160.0 TIBC (test code = 2500-7) 145 ug/dL 250-450 L Iron % Saturation (test 52 % 20-55 code = 2502-3) BRANDI (test code = BRANDI) Control Technician ID - HIEN M Lab Interpretation (test Abnormal code = 51261-2) [facility], TIBC, % sat. (without ferritin)2021-06-13 09:01:39 Test Item Value Reference Range Interpretation Comments Iron (test code = 2498-4) 75.0 ug/dL 40.0-160.0 TIBC (test code = 2500-7) 145 ug/dL 250-450 L Iron % Saturation (test 52 % 20-55 code = 2502-3) BRANDI (test code = BRANDI) Control Technician ID - HIEN M Lab Interpretation (test Abnormal code = 43146-1) [facility], % sat. (without ferritin)2021-06-13 09:01:39 Test Item Value Reference Range Interpretation Comments Iron (test code = 2498-4) 75.0 ug/dL 40.0-160.0 TIBC (test code = 2500-7) 145 ug/dL 250-450 L Iron % Saturation (test 52 % 20-55 code = 2502-3) BRANDI (test code = BRANDI) Control Technician ID - HIEN M Lab Interpretation (test Abnormal code = 50994-8) [facility], TIBC, % SAT. (WITHOUT FERRITIN)2021-06-13 09:01:39 Test Item Value Reference Range Interpretation Comments IRON (BEAKER) (test code = 547) 75.0 ug/dL 40.0-160.0 TOTAL IRON BINDING CAPACITY 145 ug/dL 250-450 L (BEAKER) (test code = 769) IRON % SATURATION (2) (BEAKER) 52 % 20-55 (test code = 2590) Control Technician ID Bassam STANFORD MPOCT-GLUCOSE [id number] 08:51:07 Test Item Value Reference Range Interpretation Comments POC-GLUCOSE METER 106 mg/dL 70-110 : [facility] ([facility]ER) (test code = [place], 1538) 27595: Control Technician/Techni kelle ID = [id number] for PADMINI ALMANZAR BASIC METABOLIC [id number] 04:21:54 Test Item Value Reference Range Interpretation [...] S NOT APPLICABLE FOR DIALYSIS PATIEN TS. Control Technician ID - HIEN [id number] 04:17:34 Test Item Value Reference Range Interpretation Comments MAGNESIUM (BEAKER) (test code = 2.0 mg/dL 1.6-2.6 627) Control Technician ID - HIEN [id number] 04:17:34 Test Item Value Reference Range Interpretation Comments PHOSPHORUS (BEAKER) (test code = 3.1 mg/dL 2.3-4.7 604) Control Technician ID - HIEN MCBC W/PLT COUNT & AUTO [id number] 03:49:10 Test Item Value Reference Range Interpretation [...] PERCENT (BEAKER) (test code = 2801) SARS-COV2/RT-PCR ([facility])2021-06-13 02:28:08 Test Item Value Reference Range Interpretation Comments SARS-COV2/RT-PCR (test code = Negative Negative 5835378) Negative result for this test determines that [...] 564(g) of the Act.Testing was performed using [employer] SARS-CoV-2 assay.Fact Sheet for Healthcare Providers:https://www.[employer].Phase III Development/ct/RT SARS-CoV-2 HCP Fact Sheet 51- 531532.pdfFact Sheet for Healthcare Patients:https://www.CareCentrix/ct/RT SARS-CoV-2 Patient Fact Sheet EN 51-516900R9.pdfPOCT-GLUCOSE [id number] 02:01:02 Test Item Value Reference Range Interpretation Comments POC-GLUCOSE METER 98 mg/dL 70-110 : TESTED A T [facility] 6720 (BEAKER) (test code = [facility], 1538) 28260: Control Technician/Techni kelle ID = [id number] for SREEKANTH ROSS POCT-GLUCOSE [id number] 02:00:06 Test Item Value Reference Range Interpretation Comments POC-GLUCOSE METER 151 mg/dL 70-110 H : TESTED A T [facility] 6720 (BEAKER) (test code = [facility], 1538) 83440: Control Technician/Techni kelle ID = [id number] for ALINE ROWE BLOOD [id number] 23:01:20 Test Item Value Reference Range Interpretation Comments CULTURE (BEAKER) (test No growth in 5 days code = 1095) BLOOD [id number] 23:01:19 Test Item Value Reference Range Interpretation Comments CULTURE (BEAKER) (test No growth in 5 days code = 1095) CT, BRAIN, WITHOUT [id number] 08:55:00Unlisted Reason for Exam - Click Yes and Enter Reason Below->No [facility] : 1955 Sex: FFINAL REPORT CT Head without contrast CLINICAL HISTORY: Subarachnoid hemorrhage (SAH) suspected TECHNIQUE: Contiguous axial CT images through the head without contrast. This exam wasperformed according to the departmental dose optimization program which includes automated exposure control, adjustment of the mA and/or kV according to the patient size, and/or use of an iterative matthew nstruction technique. COMPARISON: 06/12/2021 FINDINGS: Scattered right cerebral subarachnoid hemorrhage is grossly unchanged. There is no CT evidence for acute infarct. There is mild periventricular andsubcortical white matter hypodensity which is nonspecific but compatible with chronic microvascular ischemic disease. There is mild atherosclerotic calcification of the intracranial circulation. There is mild generalized sulcal prominence without hydrocephalus, midline shift, or apparent mass effect. There are no extra-axial fluid collections. The skull is intact. The visualized paranasal sinuses arewell-aerated. IMPRESSION: Scattered right cerebral subarachnoid hemorrhage is grossly unchanged. Signed: Fadia Caineport Verified Date/Time: 06/12/2021 08:55:52 Reading Location: [address] Neuro Reading Room POCT-GLUCOSE [id number] 07:42:49 Test Item Value Reference Range Interpretation Comments POC-GLUCOSE METER 113 mg/dL 70-110 H : TESTED A T [facility] 6720 ([employer]) (test code = [facility] [place], 1538) 03849: Control Technician/Techni kelle ID = [id number] for Sheryl Enciso POCT-GLUCOSE [id number] 07:42:05 Test Item Value Reference Range Interpretation Comments POC-GLUCOSE METER 131 mg/dL 70-110 H : TESTED A T [facility] 6720 ([employer]) (test code = [facility] [place] [facility], 1538) 40006: Control Technician/Techni kelle ID = [id number] for JI MONTAÑO POCT-GLUCOSE [id number] 07:32:16 Test Item Value Reference Range Interpretation Comments POC-GLUCOSE METER 127 mg/dL 70-110 H : [facility] ([facility]) (test code = [facility] [place] [facility], 1538) 94396: Control Technician/Techni kelle ID = [id number] for GURINDER VILLA CT, CTANGIO [id number] 03:03:00Reason for exam:->Symptoms onset less than 6 hours and NIHSS 6 or greater [facility] [place]Y : 1955 [...] the film. IMPRESSION: No evidence of a [place] of [place] proximal branch vessel occlusion or [...] and interstitial pulmonary edema. Signed: Nikole Baron [facility] Verified Date/Time: 06/12/2021 03:03:56 [facility], CAROTID, [id number] 03:03:00Reason for exam:- >Symptoms onset less than 6 hours and NIHSS 6 or greater [facility] : 1955 Sex: [...] the film. IMPRESSION: No evidence of a [place] proximal branch vessel occlusion or [...] Nikole Baron MDReport Verified Date/Time: 06/12/2021 03:03:56 PROTHROMBIN TIME/[id number] 01:46:16 Test Item Value Reference Range Interpretation Comments PROTIME (BEAKER) 15.0 seconds 11.9-14.2 H (test code = 759) INR (BEAKER) (test 1.20 See_Comment [Automat ed message] code = 370) The system [employer] generated this result transmitted ref erence range: <=5.90. The reference range was not used to int erpret this result as normal/abnormal . RECOMMENDED COUMADIN/WARFARIN INR THERAPY RANGESSTANDARD DOSE: 2.0 - 3.0 Includes: PROPHYLAXIS for venous thrombosis, systemic embolization; TREATMENT for venous thrombosis and/or pulmonary embolus.HIGH RISK: Target INR is 2.5-3.5 for patients with mechanical heart valves.CBC W/PLT COUNT & AUTO [id number] 01:45:34 Test Item Value Reference Range Interpretation [...] (test code = 2801) CT, BRAIN, WITHOUT [id number] 01:38:00Unlisted Reason for Exam - Click Yes and Enter Reason Below->No [facility] : 1955 Sex: FFINAL [...] Date/Time: 06/12/2021 01:38:35 High Sensitivity Troponin I ([facility]/Jin Only)2021-06-12 01:35:31 Test Item Value Reference Range Interpretation Comments Troponin I HS (test 231 pg/ml See_Comment H [Automa levi code = 10131-6) message] The system which generated this result transmitted reference range : <=17. The reference range was not used to interpret this result as normal/abnormal . BRANDI (test code = Control Technician ID - BRANDI) DBThe HUMAN RESOURCES OFFICE MANAGER STAT High Sensitivity Troponin-I results should be used in conjunction with other diagnostic information such as ECG, clinical observations and information, and patient symptoms to aid in the diagnosis of PR. Lab Interpretation Abnormal (test code = 68326-1) [facility] 2021-06-12 01:35:31 Test Item Value Reference Range Interpretation Comments Troponin I HS (test 231 pg/ml See_Comment H [Autom ated code = 16576-5) message] The system which generated this result transmitted reference range : <=17. The reference range was not used to interpret this result as normal/abnormal . BRANDI (test code = Control Technician ID - BRANDI) DBThe HUMAN RESOURCES OFFICE MANAGER STAT High Sensitivity Troponin-I results should be used in conjunction with other diagnostic information such as ECG, clinical observations and information, and patient symptoms to aid in the diagnosis of PR. Lab Interpretation Abnormal (test code = 97928-2) [facility] 2021-06-12 01:35:31 Test Item Value Reference Range Interpretation Comments Troponin I HS (test 231 pg/ml See_Comment H [Automa levi code = 87028-9) message] The system which generated this result transmitted reference range : <=17. The reference range was not used to interpret this result as normal/abnormal . BRANDI (test code = Control Technician ID - BRANDI) DBThe HUMAN RESOURCES OFFICE MANAGER STAT High Sensitivity Troponin-I results should be used in conjunction with other diagnostic information such as ECG, clinical observations and information, and patient symptoms to aid in the diagnosis of PR. Lab Interpretation Abnormal (test code = 12131-3) [facility] 2021-06-12 01:35:31 Test Item Value Reference Range Interpretation Comments Troponin I HS (test 231 pg/ml See_Comment H [Automa levi code = 57188-6) message] The system which generated this result transmitted reference range : <=17. The reference range was not used to interpret this result as normal/abnormal . BRANDI (test code = Control Technician ID - BRANDI) DBThe HUMAN RESOURCES OFFICE MANAGER STAT High Sensitivity Troponin-I results should be used in conjunction with other diagnostic information such as ECG, clinical observations and information, and patient symptoms to aid in the diagnosis of PR. Lab Interpretation Abnormal (test code = 75172-0) [facility] ([facility]Jin Only) 2021-06-12 01:35:31 Test Item Value Reference Range Interpretation Comments Troponin I HS (test 231 pg/ml See_Comment H [Automa levi code = 80001-4) message] The system which generated this result transmitted reference range : <=17. The reference range was not used to interpret this result as normal/abnormal . BRANDI (test code = Control Technician ID - BRANDI) DBThe HUMAN RESOURCES OFFICE MANAGER STAT High Sensitivity Troponin-I results should be used in conjunction with other diagnostic information such as ECG, clinical observations and information, and patient symptoms to aid in the diagnosis of PR. Lab Interpretation Abnormal (test code = 35479-2) [facility] 2021-06-12 01:35:31 Test Item Value Reference Range Interpretation Comments Troponin I HS (test 231 pg/ml See_Comment H [Automa levi code = 73095-1) message] The system which generated this result transmitted reference range : <=17. The reference range was not used to interpret this result as normal/abnormal . BRANDI (test code = Control Technician ID - BRANDI) DBThe HUMAN RESOURCES OFFICE MANAGER STAT High Sensitivity Troponin-I results should be used in conjunction with other diagnostic information such as ECG, clinical observations and information, and patient symptoms to aid in the diagnosis of PR. Lab Interpretation Abnormal (test code = 53189-1) [facility] ([facility]Jin Only) 2021-06-12 01:35:31 Test Item Value Reference Range Interpretation Comments Troponin I HS (test 231 pg/ml See_Comment H [Automa levi code = 77266-1) message] The system which generated this result transmitted reference range : <=17. The reference range was not used to interpret this result as normal/abnormal . BRANDI (test code = Control Technician ID - BRANDI) DBThe HUMAN RESOURCES OFFICE MANAGER STAT High Sensitivity Troponin-I results should be used in conjunction with other diagnostic information such as ECG, clinical observations and information, and patient symptoms to aid in the diagnosis of PR. Lab Interpretation Abnormal (test code = 84835-7) [facility] ([facility]in [facility] 2021-06-12 01:35:31 Test Item Value Reference Range Interpretation Comments Troponin I HS (test 231 pg/ml See_Comment H [Automa levi code = 65898-1) message] The system which generated this result transmitted reference range : <=17. The reference range was not used to interpret this result as normal/abnormal . BRANDI (test code = Control Technician ID - BRANDI) DBThe HUMAN RESOURCES OFFICE MANAGER STAT High Sensitivity Troponin-I results should be used in conjunction with other diagnostic information such as ECG, clinical observations and information, and patient symptoms to aid in the diagnosis of PR. Lab Interpretation Abnormal (test code = 79205-5) [facility] 2021-06-12 01:35:31 Test Item Value Reference Range Interpretation Comments Troponin I HS (test 231 pg/ml See_Comment H [Automa levi code = 44670-3) message] The system which generated this result transmitted reference range : <=17. The reference range was not used to interpret this result as normal/abnormal . BRANDI (test code = Control Technician ID - BRANDI) DBThe HUMAN RESOURCES OFFICE MANAGER STAT High Sensitivity Troponin-I results should be used in conjunction with other diagnostic information such as ECG, clinical observations and information, and patient symptoms to aid in the diagnosis of PR. Lab Interpretation Abnormal (test code = 45465-9) [facility] 2021-06-12 01:35:31 Test Item Value Reference Range Interpretation Comments Troponin I HS (test 231 pg/ml See_Comment H [Automa levi code = 77523-0) message] The system which generated this result transmitted reference range : <=17. The reference range was not used to interpret this result as normal/abnormal . BRANDI (test code = Control Technician ID - BRANDI) DBThe HUMAN RESOURCES OFFICE MANAGER STAT High Sensitivity Troponin-I results should be used in conjunction with other diagnostic information such as ECG, clinical observations and information, and patient symptoms to aid in the diagnosis of PR. Lab Interpretation Abnormal (test code = 14956-2) [facility] ([facility]in [facility] 2021-06-12 01:35:31 Test Item Value Reference Range Interpretation Comments Troponin I HS (test 231 pg/ml See_Comment H [Automa levi code = 01592-3) message] The system which generated this result transmitted reference range : <=17. The reference range was not used to interpret this result as normal/abnormal . BRANDI (test code = Control Technician ID - BRANDI) DBThe HUMAN RESOURCES OFFICE MANAGER STAT High Sensitivity Troponin-I results should be used in conjunction with other diagnostic information such as ECG, clinical observations and information, and patient symptoms to aid in the diagnosis of PR. Lab Interpretation Abnormal (test code = 71967-7) [facility] ([facility]in [facility] 2021-06-12 01:35:31 Test Item Value Reference Range Interpretation Comments Troponin I HS (test 231 pg/ml See_Comment H [Automa levi code = 17467-2) message] The system which generated this result transmitted reference range : <=17. The reference range was not used to interpret this result as normal/abnormal . BRANDI (test code = Control Technician ID - BRANDI) DBThe HUMAN RESOURCES OFFICE MANAGER STAT High Sensitivity Troponin-I results should be used in conjunction with other diagnostic information such as ECG, clinical observations and information, and patient symptoms to aid in the diagnosis of PR. Lab Interpretation Abnormal (test code = 67310-8) [facility] ([facility]Jin Only[facility] 2021-06-12 01:35:31 Test Item Value Reference Range Interpretation Comments Troponin I HS (test 231 pg/ml See_Comment H [Automa levi code = 49405-3) message] The system which generated this result transmitted reference range : <=17. The reference range was not used to interpret this result as normal/abnormal . BRANDI (test code = Control Technician ID - BRANDI) [employer] HUMAN RESOURCES OFFICE MANAGER STAT High Sensitivity Troponin-I results should be used in conjunction with other diagnostic information such as ECG, clinical observations and information, and patient symptoms to aid in the diagnosis of PR. Lab Interpretation Abnormal (test code = 76712-0) [facility] 2021-06-12 01:35:31 Test Item Value Reference Range Interpretation Comments Troponin I HS (test 231 pg/ml See_Comment H [Automa levi code = 94181-4) message] The system which generated this result transmitted reference range : <=17. The reference range was not used to interpret this result as normal/abnormal . BRANDI (test code = Control Technician ID - BRANDI) DBThe HUMAN RESOURCES OFFICE MANAGER STAT High Sensitivity Troponin-I results should be used in conjunction with other diagnostic information such as ECG, clinical observations and information, and patient symptoms to aid in the diagnosis of PR. Lab Interpretation Abnormal (test code = 52774-1) [facility] ([facility]in [facility] 2021-06-12 01:35:31 Test Item Value Reference Range Interpretation Comments Troponin I HS (test code 231 pg/ml <=17 H = 56119-4) BRANDI (test code = BRANDI) Control Technician ID - DBThe HUMAN RESOURCES OFFICE MANAGER STAT High Sensitivity Troponin-I results should be used in conjunction with other diagnostic information such as ECG, clinical observations and information, and patient symptoms to aid in the diagnosis of PR. Lab Interpretation (test Abnormal code = 40600-8) [facility] ([facility]Jin Only) 2021-06-12 01:35:31 Test Item Value Reference Range Interpretation Comments Troponin I HS (test 231 pg/ml See_Comment H [Automa levi code = 17299-7) message] The system which generated this result transmitted reference range : <=17. The reference range was not used to interpret this result as normal/abnormal . BRANDI (test code = Control Technician ID - BRANDI) DBThe HUMAN RESOURCES OFFICE MANAGER STAT High Sensitivity Troponin-I results should be used in conjunction with other diagnostic information such as ECG, clinical observations and information, and patient symptoms to aid in the diagnosis of PR. Lab Interpretation Abnormal (test code = 41237-2) [facility] ([facility]in [facility] 2021-06-12 01:35:31 Test Item Value Reference Range Interpretation Comments Troponin I HS (test 231 pg/ml See_Comment H [Automa levi code = 10502-0) message] The system which generated this result transmitted reference range : <=17. The reference range was not used to interpret this result as normal/abnormal . BRANDI (test code = Control Technician ID - BRANDI) DBThe HUMAN RESOURCES OFFICE MANAGER STAT High Sensitivity Troponin-I results should be used in conjunction with other diagnostic information such as ECG, clinical observations and information, and patient symptoms to aid in the diagnosis of PR. Lab Interpretation Abnormal (test code = 42522-1) [facility] TROPONIN [id number] 01:35:31 Test Item Value Reference Range Interpretation Comments HIGH SENSITIVITY 231 pg/ml See_Comment H [Automated message] TROPONIN I (test code The sy stem which = 4919181) generated this result transmitted ref erence range: <=17. Th e reference range was not used to int erpret this result as normal/abnormal . Control Technician ID - DBThe HUMAN RESOURCES OFFICE MANAGER STAT High Sensitivity Troponin-I results should be used in conjunctionwith other diagnostic information such as ECG, clinical observations and information, and patient symptoms to aid in the diagnosis of PR.BASIC METABOLIC [id number] 01:29:11 Test Item Value Reference Range Interpretation [...] S NOT APPLICABLE FOR DIALYSIS PATIEN TS. Control Technician ID - [id number] 01:28:34 Test Item Value Reference Range Interpretation Comments PHOSPHORUS (BEAKER) 4.6 mg/dL 2.3-4.7 Specimen slightly (test code = 604) hemolyzed Control Technician ID - [id number] 01:28:33 Test Item Value Reference Range Interpretation Comments MAGNESIUM (BEAKER) 2.2 mg/dL 1.6-2.6 Specimen slightly (test code = 627) hemolyzed Control Technician ID - DBLactic acid, [id number] 01:26:32 Test Item Value Reference Range Interpretation Comments Lactate, Venous (test code = 0.87 mmol/L 0.50-2.20 2872) BRANDI (test code = BRANDI) Control Technician ID - DB Lab Interpretation (test Normal code = 80855-8) [facility] [id number] 01:26:32 Test Item Value Reference Range Interpretation Comments Lactate, Venous (test code = 0.87 mmol/L 0.50-2.20 2872) BRANDI (test code = BRANDI) Control Technician ID - DB Lab Interpretation (test Normal code = 76905-8) [facility] [id number] 01:26:32 Test Item Value Reference Range Interpretation Comments Lactate, Venous (test code = 0.87 mmol/L 0.50-2.20 2872) BRANDI (test code = BRANDI) Control Technician ID - DB Lab Interpretation (test Normal code = 64271-0) [facility], [id number] 01:26:32 Test Item Value Reference Range Interpretation Comments Lactate, Venous (test code = 0.87 mmol/L 0.50-2.20 2872) BRANDI (test code = BRANDI) Control Technician ID - DB Lab Interpretation (test Normal code = 28208-9) [facility], [id number] 01:26:32 Test Item Value Reference Range Interpretation Comments Lactate, Venous (test code = 0.87 mmol/L 0.50-2.20 2872) BRANDI (test code = BRANDI) Control Technician ID - DB Lab Interpretation (test Normal code = 03466-7) [facility], [id number] 01:26:32 Test Item Value Reference Range Interpretation Comments Lactate, Venous (test code = 0.87 mmol/L 0.50-2.20 2872) BRANDI (test code = BRANDI) Control Technician ID - DB Lab Interpretation (test Normal code = 21754-9) [facility], [id number] 01:26:32 Test Item Value Reference Range Interpretation Comments Lactate, Venous (test code = 0.87 mmol/L 0.50-2.20 2872) BRANDI (test code = BRANDI) Control Technician ID - DB Lab Interpretation (test Normal code = 06212-8) [facility], [id number] 01:26:32 Test Item Value Reference Range Interpretation Comments Lactate, Venous (test code = 0.87 mmol/L 0.50-2.20 2872) BRANDI (test code = BRANDI) Control Technician ID - DB Lab Interpretation (test Normal code = 38817-7) [facility], [id number] 01:26:32 Test Item Value Reference Range Interpretation Comments Lactate, Venous (test code = 0.87 mmol/L 0.50-2.20 2872) BRANDI (test code = BRANDI) Control Technician ID - DB Lab Interpretation (test Normal code = 88926-4) [facility], [id number] 01:26:32 Test Item Value Reference Range Interpretation Comments Lactate, Venous (test code = 0.87 mmol/L 0.50-2.20 2872) BRANDI (test code = BRANDI) Control Technician ID - DB Lab Interpretation (test Normal code = 08670-1) [facility], [id number] 01:26:32 Test Item Value Reference Range Interpretation Comments Lactate, Venous (test code = 0.87 mmol/L 0.50-2.20 2872) BRANDI (test code = BRANDI) Control Technician ID - DB Lab Interpretation (test Normal code = 78506-9) [facility], [id number] 01:26:32 Test Item Value Reference Range Interpretation Comments Lactate, Venous (test code = 0.87 mmol/L 0.50-2.20 2872) BRANDI (test code = BRANDI) Control Technician ID - DB Lab Interpretation (test Normal code = 91735-5) [facility], [id number] 01:26:32 Test Item Value Reference Range Interpretation Comments Lactate, Venous (test code = 0.87 mmol/L 0.50-2.20 2872) BRANDI (test code = BRANDI) Control Technician ID - DB Lab Interpretation (test Normal code = 14447-5) [facility], [id number] 01:26:32 Test Item Value Reference Range Interpretation Comments Lactate, Venous (test code = 0.87 mmol/L 0.50-2.20 2872) BRANDI (test code = BRANDI) Control Technician ID - DB Lab Interpretation (test Normal code = 43974-2) [facility], [id number] 01:26:32 Test Item Value Reference Range Interpretation Comments Lactate, Venous (test code = 0.87 mmol/L 0.50-2.20 2872) BRANDI (test code = BRANDI) Control Technician ID - DB Lab Interpretation (test Normal code = 88914-9) [facility], [id number] 01:26:32 Test Item Value Reference Range Interpretation Comments Lactate, Venous (test code = 0.87 mmol/L 0.50-2.20 2872) BRANDI (test code = BRANDI) Control Technician ID - DB Lab Interpretation (test Normal code = 02527-7) [facility], [id number] 01:26:32 Test Item Value Reference Range Interpretation Comments Lactate, Venous (test code = 0.87 mmol/L 0.50-2.20 2872) BRANDI (test code = BRANDI) Control Technician ID - DB Lab Interpretation (test Normal code = 03709-3) [facility]CT[facility], [id number] 01:26:32 Test Item Value Reference Range Interpretation Comments LACTATE BLOOD VENOUS (2) (BEAKER) 0.87 mmol/L 0.50-2.20 (test code = 2872) Control Technician ID - DBPOCT-GLUCOSE [id number] 16:24:28 Test Item Value Reference Range Interpretation Comments POC-GLUCOSE METER 244 mg/dL 70-110 H : TESTED A T [facility] 6720 (BEAKER) (test code = [place], 1538) 99938: Control Technician/Techni kelle ID = [id number] for Maranda Menjivar POCT-GLUCOSE [id number] 11:29:05 Test Item Value Reference Range Interpretation Comments POC-GLUCOSE METER 168 mg/dL 70-110 H : TESTED A T [facility] 6720 (BEAKER) (test code = YUDY [place], 1538) 24096: Control Technician/Techni kelle ID = [id number] for Maranda Menjivar POCT-GLUCOSE [id number] 06:45:50 Test Item Value Reference Range Interpretation Comments POC-GLUCOSE METER 132 mg/dL 70-110 H : TESTED A T [facility] 6720 (BEAKER) (test code = [place], 1538) 32306: Control Technician/Techni kelle ID = [id number] for UG GHADA HAMLIN BASIC METABOLIC [id number] 05:08:08 Test Item Value Reference Range Interpretation [...] S NOT APPLICABLE FOR DIALYSIS PATIEN TS. Control Technician ID - HIEN [id number] 04:56:38 Test Item Value Reference Range Interpretation Comments MAGNESIUM (BEAKER) (test code = 1.9 mg/dL 1.6-2.6 627) Control Technician ID - HIEN [id number] 04:56:38 Test Item Value Reference Range Interpretation Comments PHOSPHORUS (BEAKER) (test code = 3.7 mg/dL 2.3-4.7 604) Control Technician ID - HIEN MCBC W/PLT COUNT & AUTO [id number] 04:33:28 Test Item Value Reference Range Interpretation [...] = 2801) CBC W/PLT COUNT & AUTO [id number] 22:57:11 Test Item Value Reference Range Interpretation [...] = 2801) RAD, CHEST, 1 VIEW, NON [id number] 22:44:00Reason for exam:- >dyspneaShould this be performed at the bedside?->Yes [facility] : 1955 Sex: [...] signed by: BRAXTON QUINTERO M.D. on 0:44 [id number] 22:43:07 Test Item Value Reference Range Interpretation Comments POC-Glucose (test code = 118 mg/dL 70-110 H : T LEEANN AT [facility] 7295) [address] [facility], [facility] 30: Control Technician/Techni kelle ID = [id number] for MARFIL, JOSE ARMANDO Lab Interpretation (test Abnormal code = 18046-9) [facility]2022-03-09 22:43:07 Test Item Value Reference Range Interpretation Comments POC-Glucose (test code = 118 mg/dL 70-110 H : [facility] [address] [place] [address], 770 30: Control Technician/Techni kelle ID = [id number] for MARFIL, JOSE ARMANDO Lab Interpretation (test Abnormal code = 34603-7) [facility]2022-03-09 22:43:07 Test Item Value Reference Range Interpretation Comments POC-Glucose (test code = 118 mg/dL 70-110 H : T ESTED AT [facility] 1855) [address] [place] [address], 770 30: Control Technician/Techni kelle ID = [id number] for MARFIL, JOSE ARMANDO Lab Interpretation (test Abnormal code = 56990-6) [facility]2022-03-09 22:43:07 Test Item Value Reference Range Interpretation Comments POC-Glucose (test code = 118 mg/dL 70-110 H : [facility] [address] [place] [address], 770 30: Control Technician/Techni kelle ID = [id number] for MARFIL, JOSE ARMANDO Lab Interpretation (test Abnormal code = 52167-0) [facility]2022-03-09 22:43:07 Test Item Value Reference Range Interpretation Comments POC-Glucose (test code = 118 mg/dL 70-110 H : [facility]) [address] [place] [address], 770 30: Control Technician/Techni kelle ID = [id number] for MARFIL, JOSE ARMANDO Lab Interpretation (test Abnormal code = 21702-8) [facility]2022-03-09 22:43:07 Test Item Value Reference Range Interpretation Comments POC-Glucose (test code = 118 mg/dL 70-110 H : [facility] [facility] [address]55) [address] [place] [address], 770 30: Control Technician/Techni kelle ID = [id number] for MARFIL, JOSE ARMANDO Lab Interpretation (test Abnormal code = 83509-3) [facility]2022-03-09 22:43:07 Test Item Value Reference Range Interpretation Comments POC-Glucose (test code = 118 mg/dL 70-110 H : T ESTED AT [facility] 1855) [address] [place] [address], 770 30: Control Technician/Techni kelle ID = [id number] for MARFIL, JOSE ARMANDO Lab Interpretation (test Abnormal code = 07110-0) [facility]2022-03-09 22:43:07 Test Item Value Reference Range Interpretation Comments POC-Glucose (test code = 118 mg/dL 70-110 H : T ESTED AT [facility] 1855) [address] [place] [address], 770 30: Control Technician/Techni kelle ID = [id number] for MARFIL, JOSE ARMANDO Lab Interpretation (test Abnormal code = 34895-1) [facility]2022-03-09 22:43:07 Test Item Value Reference Range Interpretation Comments POC-Glucose (test code = 118 mg/dL 70-110 H : T ESTED AT [facility] 1855) [address] [place] [address], 770 30: Control Technician/Techni kelle ID = [id number] for MARFIL, JOSEA RMANDO Lab Interpretation (test Abnormal code = 97390-6) [facility]2022-03-09 22:43:07 Test Item Value Reference Range Interpretation Comments POC-Glucose (test code = 118 mg/dL 70-110 H : T ESTED AT [facility] 1855) [address] [place] [address], 770 30: Control Technician/Techni kelle ID = [id number] for MARFIL, JOSE ARMANDO Lab Interpretation (test Abnormal code = 49222-7) [facility]2022-03-09 22:43:07 Test Item Value Reference Range Interpretation Comments POC-Glucose (test code = 118 mg/dL 70-110 H : T ESTED AT [facility] 1855) [address] [place] [address], 770 30: Control Technician/Techni kelle ID = [id number] for MARFIL, JOSE ARMANDO Lab Interpretation (test Abnormal code = 34041-9) [facility]2022-03-09 22:43:07 Test Item Value Reference Range Interpretation Comments POC-Glucose (test code = 118 mg/dL 70-110 H : T ESTED AT [facility] 1855) [address] [place] [address], 770 30: Control Technician/Techni kelle ID = [id number] for MARFIL, JOSE ARMANDO Lab Interpretation (test Abnormal code = 63932-5) [facility]2022-03-09 22:43:07 Test Item Value Reference Range Interpretation Comments POC-Glucose (test code = 118 mg/dL 70-110 H : T ESTED AT [facility] 1855) [address] [place] [address], 770 30: Control Technician/Techni kelle ID = [id number] for MARFIL, JOSE ARMANDO Lab Interpretation (test Abnormal code = 43019-6) [facility]2022-03-09 22:43:07 Test Item Value Reference Range Interpretation Comments POC-Glucose (test code = 118 mg/dL 70-110 H : T ESTED AT [facility] 1855) [address] [place] [address], 770 30: Control Technician/Techni kelle ID = [id number] for MARFIL, JOSE ARMANDO Lab Interpretation (test Abnormal code = 54382-2) [facility]2022-03-09 22:43:07 Test Item Value Reference Range Interpretation Comments POC-Glucose (test code = 118 mg/dL 70-110 H : T ESTED AT [facility] 1855) [address] [place] [address], 770 30: Control Technician/Techni kelle ID = [id number] for MARFIL, JOSE ARMANDO Lab Interpretation (test Abnormal code = 69335-3) [facility]2022-03-09 22:43:07 Test Item Value Reference Range Interpretation Comments POC-Glucose (test code = 118 mg/dL 70-110 H : T ESTED AT [facility] 1855) [address] [place] [address], 770 30: Control Technician/Techni kelle ID = [id number] for MARFIL, JOSE ARMANDO Lab Interpretation (test Abnormal code = 92312-6) [facility]2022-03-09 22:43:07 Test Item Value Reference Range Interpretation Comments POC-Glucose (test code = 118 mg/dL 70-110 H : T ESTED AT [facility] 1855) [address] [place] [address], 770 30: Control Technician/Techni kelle ID = [id number] for MARFIL, JOSE ARMANDO Lab Interpretation (test Abnormal code = 85671-9) [id number] 22:43:07 Test Item Value Reference Range Interpretation Comments POC-GLUCOSE (BEAKER) 118 mg/dL 70-110 H : TESTE D AT [facility] 6720 (test code = 1855) [facility], [address]: Control Technician/Techni kelle ID = [id number] for MARF IL, JOSE ARMANDO EGGB-[id number] 22:43:06 Test Item Value Reference Range Interpretation Comments POC-Hemoglobin (test code 8.2 g/dL 12.0-15.0 L : [facility]56[facility] [address] [facility], 770 30: Control Technician/Techni kelle ID = [id number] for MARFIL, JOSE ARMANDO Lab Interpretation (test Abnormal code = 92415-0) [facility]WggqomBQDK-[id number] 22:43:06 Test Item Value Reference Range Interpretation Comments POC-Hematocrit (test code 24 % 36-45 L : = 1857) Control Technician/Techni kelle ID = [id number] for MARFIL, JOSE ARMANDO Lab Interpretation (test Abnormal code = 23325-0) [facility] HospitalPvzumlBVDO-[id number] 22:43:06 Test Item Value Reference Range Interpretation Comments POC-Hemoglobin (test code 8.2 g/dL 12.0-15.0 L : [facility] AT [facility] = 1856) [address] [facility], 770 30: Control Technician/Techni kelle ID = [id number] for MARFIL, JOSE ARMANDO Lab Interpretation (test Abnormal code = 58054-3) [facility] HospitalNdnusnFRVL-ZYQJJBFJJN3234-16-09 22:43:06 Test Item Value Reference Range Interpretation Comments POC-Hematocrit (test code 24 % 36-45 L : = 1857) Control Technician/Techni kelle ID = [id number] for MARFIL, JOSE ARMANDO Lab Interpretation (test Abnormal code = 33837-0) [facility] HospitalEyrqcjOAEX-[id number] 22:43:06 Test Item Value Reference Range Interpretation Comments POC-Hemoglobin (test code 8.2 g/dL 12.0-15.0 L : TESTED AT [facility] = 1856) [address] [place] [address], 770 30: Control Technician/Techni kelle ID = [id number] for MARFIL, JOSE ARMANDO Lab Interpretation (test Abnormal code = 24641-2) [facility]-[id number] 22:43:06 Test Item Value Reference Range Interpretation Comments POC-Hematocrit (test code 24 % 36-45 L : = 1857) Control Technician/Techni kelle ID = [id number] for MARFIL, JOSE ARMANDO Lab Interpretation (test Abnormal code = 28488-8) [facility]-[id number] 22:43:06 Test Item Value Reference Range Interpretation Comments POC-Hemoglobin (test code 8.2 g/dL 12.0-15.0 L : TESTED AT [facility] = 1856) [address] [place] [address], 770 30: Control Technician/Techni kelle ID = [id number] for MARFIL, JOSE ARMANDO Lab Interpretation (test Abnormal code = 99368-1) [facility]-[id number] 22:43:06 Test Item Value Reference Range Interpretation Comments POC-Hematocrit (test code 24 % 36-45 L : = 1857) Control Technician/Techni kelle ID = [id number] for MARFIL, JOSE ARMANDO Lab Interpretation (test Abnormal code = 69585-1) [facility]-[id number] 22:43:06 Test Item Value Reference Range Interpretation Comments POC-Hemoglobin (test code 8.2 g/dL 12.0-15.0 L : TESTED AT [facility] = 1856) [address] [place] [address], 770 30: Control Technician/Techni kelle ID = [id number] for MARFIL, JOSE ARMANDO Lab Interpretation (test Abnormal code = 41150-2) [facility]-[id number] 22:43:06 Test Item Value Reference Range Interpretation Comments POC-Hematocrit (test code 24 % 36-45 L : = 1857) Control Technician/Techni kelle ID = [id number] for MARFIL, JOSE ARMANDO Lab Interpretation (test Abnormal code = 12103-2) [facility]-[id number] 22:43:06 Test Item Value Reference Range Interpretation Comments POC-Hemoglobin (test code 8.2 g/dL 12.0-15.0 L : TESTED AT [facility] = 1856) [address] [facility], 770 30: Control Technician/Techni kelle ID = [id number] for MARFIL, JOSE ARMANDO Lab Interpretation (test Abnormal code = 79237-3) [facility] HospitalJqzgdyNNRP-GAWTUCQCRZ7585-10-09 22:43:06 Test Item Value Reference Range Interpretation Comments POC-Hematocrit (test code 24 % 36-45 L : = 1857) Control Technician/Techni kelle ID = [id number] for MARFIL, JOSE ARMANDO Lab Interpretation (test Abnormal code = 86359-6) [facility]-[id number] 22:43:06 Test Item Value Reference Range Interpretation Comments POC-Hemoglobin (test code 8.2 g/dL 12.0-15.0 L : TESTED AT [facility] = 1856) [address] [place] [address], 770 30: Control Technician/Techni kelle ID = [id number] for MARFIL, JOSE ARMANDO Lab Interpretation (test Abnormal code = 55222-4) [facility]-[id number] 22:43:06 Test Item Value Reference Range Interpretation Comments POC-Hematocrit (test code 24 % 36-45 L : = 1857) Control Technician/Techni kelle ID = [id number] for MARFIL, JOSE ARMANDO Lab Interpretation (test Abnormal code = 39231-4) [facility]-[id number] 22:43:06 Test Item Value Reference Range Interpretation Comments POC-Hemoglobin (test code 8.2 g/dL 12.0-15.0 L : [facility] 1856[facility] [address] [place] [address], 770 30: Control Technician/Techni kelle ID = [id number] for MARFIL, JOSE ARMANDO Lab Interpretation (test Abnormal code = 85454-7) [facility]-[id number] 22:43:06 Test Item Value Reference Range Interpretation Comments POC-Hematocrit (test code 24 % 36-45 L : = 1857) Control Technician/Techni kelle ID = [id number] for MARFIL, JOSE ARMANDO Lab Interpretation (test Abnormal code = 15350-2) [facility]-[id number] 22:43:06 Test Item Value Reference Range Interpretation Comments POC-Hemoglobin (test code 8.2 g/dL 12.0-15.0 L : TESTED AT [facility] = 1856) [address] [place] [address], 770 30: Control Technician/Techni kelle ID = [id number] for MARFIL, JOSE ARMANDO Lab Interpretation (test Abnormal code = 01424-3) [facility]-[id number] 22:43:06 Test Item Value Reference Range Interpretation Comments POC-Hematocrit (test code 24 % 36-45 L : = 1857) Control Technician/Techni kelle ID = [id number] for MARFIL, JOSE ARMANDO Lab Interpretation (test Abnormal code = 19796-4) [facility] 22:43:06 Test Item Value Reference Range Interpretation Comments POC-Hemoglobin (test code 8.2 g/dL 12.0-15.0 L : TESTED AT [facility] = 1856) [address] [place] [address], 770 30: Control Technician/Techni kelle ID = [id number] for MARFIL, JOSE ARMANDO Lab Interpretation (test Abnormal code = 14029-9) [facility]-[id number] 22:43:06 Test Item Value Reference Range Interpretation Comments POC-Hematocrit (test code 24 % 36-45 L : = 1857) Control Technician/Techni kelle ID = [id number] for MARFIL, JOSE ARMANDO Lab Interpretation (test Abnormal code = 78516-7) [facility]-[id number] 22:43:06 Test Item Value Reference Range Interpretation Comments POC-Hemoglobin (test code 8.2 g/dL 12.0-15.0 L : [facility] 1856[facility] [address] [place] [address], 770 30: Control Technician/Techni kelle ID = [id number] for MARFIL, JOSE ARMANDO Lab Interpretation (test Abnormal code = 83241-7) [facility]-[id number] 22:43:06 Test Item Value Reference Range Interpretation Comments POC-Hematocrit (test code 24 % 36-45 L : = 1857) Control Technician/Techni kelle ID = [id number] for MARFIL, JOSE ARMANDO Lab Interpretation (test Abnormal code = 09521-7) [facility]-[id number] 22:43:06 Test Item Value Reference Range Interpretation Comments POC-Hemoglobin (test code 8.2 g/dL 12.0-15.0 L : TESTED AT [facility] = 1856) [address] [place] [address], 770 30: Control Technician/Techni kelle ID = [id number] for MARFIL, JOSE ARMANDO Lab Interpretation (test Abnormal code = 40645-8) [facility]-[id number] 22:43:06 Test Item Value Reference Range Interpretation Comments POC-Hematocrit (test code 24 % 36-45 L : = 1857) Control Technician/Techni kelle ID = [id number] for MARFIL, JOSE ARMANDO Lab Interpretation (test Abnormal code = 56752-7) [facility]-[id number] 22:43:06 Test Item Value Reference Range Interpretation Comments POC-Hemoglobin (test code 8.2 g/dL 12.0-15.0 L : TESTED AT [facility] = 1856) [address] [place] [address], 770 30: Control Technician/Techni kelle ID = [id number] for MARFIL, JOSE ARMANDO Lab Interpretation (test Abnormal code = 77944-0) [facility]-[id number] 22:43:06 Test Item Value Reference Range Interpretation Comments POC-Hematocrit (test code 24 % 36-45 L : = 1857) Control Technician/Techni kelle ID = [id number] for MARFIL, JOSE ARMANDO Lab Interpretation (test Abnormal code = 39096-1) [facility]-[id number] 22:43:06 Test Item Value Reference Range Interpretation Comments POC-Hemoglobin (test code 8.2 g/dL 12.0-15.0 L : TESTED AT [facility] = 1856) [address] [place] [address], 770 30: Control Technician/Techni kelle ID = [id number] for MARFIL, JOSE ARMANDO Lab Interpretation (test Abnormal code = 80539-3) [facility]-[id number] 22:43:06 Test Item Value Reference Range Interpretation Comments POC-Hematocrit (test code 24 % 36-45 L : = 1857) Control Technician/Techni kelle ID = [id number] for MARFIL, JOSE ARMANDO Lab Interpretation (test Abnormal code = 46655-9) [facility]-[id number] 22:43:06 Test Item Value Reference Range Interpretation Comments POC-Hemoglobin (test code 8.2 g/dL 12.0-15.0 L : TESTED AT [facility] = 1856) [address] [place] [address], 770 30: Control Technician/Techni kelle ID = [id number] for MARFIL, JOSE ARMANDO Lab Interpretation (test Abnormal code = 27257-9) [facility]-[id number] 22:43:06 Test Item Value Reference Range Interpretation Comments POC-Hematocrit (test code 24 % 36-45 L : = 1857) Control Technician/Techni kelle ID = [id number] for MARFIL, JOSE ARMANDO Lab Interpretation (test Abnormal code = 52495-7) [facility]-[id number] 22:43:06 Test Item Value Reference Range Interpretation Comments POC-Hemoglobin (test code 8.2 g/dL 12.0-15.0 L : [facility] 1856[facility] [address] [place] [address], 770 30: Control Technician/Techni kelle ID = [id number] for MARFIL, JOSE ARMANDO Lab Interpretation (test Abnormal code = 28482-3) [facility]-[id number] 22:43:06 Test Item Value Reference Range Interpretation Comments POC-Hematocrit (test code 24 % 36-45 L : = 1857) Control Technician/Techni kelle ID = [id number] for MARFIL, JOSE ARMANDO Lab Interpretation (test Abnormal code = 23188-4) [facility]-[id number] 22:43:06 Test Item Value Reference Range Interpretation Comments POC-Hemoglobin (test code 8.2 g/dL 12.0-15.0 L : [facility] = 1856) [address] [place] [address], 770 30: Control Technician/Techni kelle ID = [id number] for MARFIL, JOSE ARMANDO Lab Interpretation (test Abnormal code = 64157-8) [facility]-[id number] 22:43:06 Test Item Value Reference Range Interpretation Comments POC-Hematocrit (test code 24 % 36-45 L : = 1857) Control Technician/Techni kelle ID = [id number] for MARFIL, JOSE ARMANDO Lab Interpretation (test Abnormal code = 90975-1) [facility] HospitalNpdkeaJDCL-[id number] 22:43:06 Test Item Value Reference Range Interpretation Comments POC-HEMOGLOBIN 8.2 g/dL 12.0-15.0 L : TESTED AT [facility] 67 (BEAKER) (test code = [facility], 1856) [address]: Control Technician/Techni kelle ID = [id number] for MARF IL, JOSE ARMANDO AGMQ-[id number] 22:43:06 Test Item Value Reference Range Interpretation Comments POC-HEMATOCRIT 24 % 36-45 L : Control Technician/Te chnician ID = ([id number]) (test code = 737908 for MARFIL, JOSE ARMANDO 1857) [facility]-[id number] 22:43:05 Test Item Value Reference Range Interpretation Comments POC-Potassium (test code 3.4 meq/L 3.6-5.5 L : T ESTED AT [facility] = 1540) [address] [place] [address], 770 30: Control Technician/Techni kelle ID = [id number] for MARFIL, JOSE ARMANDO Lab Interpretation (test Abnormal code = 66878-4) [facility]-[id number] 22:43:05 Test Item Value Reference Range Interpretation Comments POC-Sodium (test code = 137 meq/L 135-148 : TE STED AT [facility] 1542) [address] [place] [address], 770 30: Control Technician/Techni kelle ID = [id number] for MARFIL, JOSE ARMANDO Lab Interpretation (test Normal code = 66913-9) [facility]-Kytsbjolh6713-16-86 22:43:05 Test Item Value Reference Range Interpretation Comments POC-Potassium (test code 3.4 meq/L 3.6-5.5 L : T ESTED AT [facility] = 1540) [address] [place] [address], 770 30: Control Technician/Techni kelle ID = [id number] for MARFIL, JOSE ARMANDO Lab Interpretation (test Abnormal code = 41642-1) [facility]-Qthnvb3930-02-28 22:43:05 Test Item Value Reference Range Interpretation Comments POC-Sodium (test code = 137 meq/L 135-148 : TE STED AT [facility] 1542) [address] [place] [address], 770 30: Control Technician/Techni kelle ID = [id number] for MARFIL, JOSE ARMANDO Lab Interpretation (test Normal code = 96261-9) [facility]-[id number] 22:43:05 Test Item Value Reference Range Interpretation Comments POC-Potassium (test code 3.4 meq/L 3.6-5.5 L : T ESTED AT [facility] = 1540) [address] [place] [address], 770 30: Control Technician/Techni eklle ID = [id number] for MARFIL, JOSE ARMANDO Lab Interpretation (test Abnormal code = 23127-5) [facility] 22:43:05 Test Item Value Reference Range Interpretation Comments POC-Sodium (test code = 137 meq/L 135-148 : TE STED AT [facility] 1542) [address] [place] [address], 770 30: Control Technician/Techni kelle ID = [id number] for MARFIL, JOSE ARMANDO Lab Interpretation (test Normal code = 40192-2) [facility]-[id number] 22:43:05 Test Item Value Reference Range Interpretation Comments POC-Potassium (test code 3.4 meq/L 3.6-5.5 L : T ESTED AT [facility] = 1540) [address] [place] [address], 770 30: Control Technician/Techni kelle ID = [id number] for MARFIL, JOSE ARMANDO Lab Interpretation (test Abnormal code = 16185-2) [facility]-[id number] 22:43:05 Test Item Value Reference Range Interpretation Comments POC-Sodium (test code = 137 meq/L 135-148 : TE STED AT [facility] 1542) [address] [place] [address], 770 30: Control Technician/Techni kelle ID = [id number] for MARFIL, JOSE ARMANDO Lab Interpretation (test Normal code = 86582-1) [facility]-Birvpealw0631-21-10 22:43:05 Test Item Value Reference Range Interpretation Comments POC-Potassium (test code 3.4 meq/L 3.6-5.5 L : T ESTED AT [facility] = 1540) [address] [place] [address], 770 30: Control Technician/Techni kelle ID = [id number] for MARFIL, JOSE ARMANDO Lab Interpretation (test Abnormal code = 04167-4) [facility]-[id number] 22:43:05 Test Item Value Reference Range Interpretation Comments POC-Sodium (test code = 137 meq/L 135-148 : TE STED AT [facility] 1542) [address] [place] [address], [facility] 30: Control Technician/Techni kelle ID = [id number] for MARFIL, JOSE ARMANDO Lab Interpretation (test Normal code = 15623-9) [facility]-[id number] 22:43:05 Test Item Value Reference Range Interpretation Comments POC-Potassium (test code 3.4 meq/L 3.6-5.5 L : T ESTED AT [facility] = 1540) [address] [place] [address], [facility] 30: Control Technician/Techni kelle ID = [id number] for MARFIL, JOSE ARMANDO Lab Interpretation (test Abnormal code = 48820-8) [facility]-Hulkjo6832-44-87 22:43:05 Test Item Value Reference Range Interpretation Comments POC-Sodium (test code = 137 meq/L 135-148 : TE STED AT [facility] 1542) [address] [place] [address], [facility] 30: Control Technician/Techni kelle ID = [id number] for MARFIL, JOSE ARMANDO Lab Interpretation (test Normal code = 24575-4) [facility]-[id number] 22:43:05 Test Item Value Reference Range Interpretation Comments POC-Potassium (test code 3.4 meq/L 3.6-5.5 L : T ESTED AT [facility] = 1540) [address] [place] [address], 770 30: Control Technician/Techni kelle ID = [id number] for MARFIL, JOSE ARMANDO Lab Interpretation (test Abnormal code = 55613-6) [facility]-Jpofft2491-70-12 22:43:05 Test Item Value Reference Range Interpretation Comments POC-Sodium (test code = 137 meq/L 135-148 : TE STED AT [facility] 1542) [address] [place] [address], 770 30: Control Technician/Techni kelle ID = [id number] for MARFIL, JOSE ARMANDO Lab Interpretation (test Normal code = 34838-8) [facility]-Jswgrdcfn7985-59-55 22:43:05 Test Item Value Reference Range Interpretation Comments POC-Potassium (test code 3.4 meq/L 3.6-5.5 L : T ESTED AT [facility] = 1540) [address] [place] [address], [facility] 30: Control Technician/Techni kelle ID = [id number] for MARFIL, JOSE ARMANDO Lab Interpretation (test Abnormal code = 01063-8) [facility]-Qmoejb9892-41-32 22:43:05 Test Item Value Reference Range Interpretation Comments POC-Sodium (test code = 137 meq/L 135-148 : TE STED AT [facility] 1542) [address] [place] [address], [facility] 30: Control Technician/Techni kelle ID = [id number] for MARFIL, JOSE ARMANDO Lab Interpretation (test Normal code = 23217-4) [facility]-[id number] 22:43:05 Test Item Value Reference Range Interpretation Comments POC-Potassium (test code 3.4 meq/L 3.6-5.5 L : T ESTED AT [facility] = 1540) [address] [place] [address], [facility] 30: Control Technician/Techni kelle ID = [id number] for MARFIL, JOSE ARMANDO Lab Interpretation (test Abnormal code = 87911-8) [facility]-[id number] 22:43:05 Test Item Value Reference Range Interpretation Comments POC-Sodium (test code = 137 meq/L 135-148 : TE STED AT [facility] 1542) [address] [place] [address], [facility] 30: Control Technician/Techni kelle ID = [id number] for MARFIL, JOSE ARMANDO Lab Interpretation (test Normal code = 88136-8) [facility]-[id number] 22:43:05 Test Item Value Reference Range Interpretation Comments POC-Potassium (test code 3.4 meq/L 3.6-5.5 L : T ESTED AT [facility] = 1540) [address] [place] [address], 770 30: Control Technician/Techni kelle ID = [id number] for MARFIL, JOSE ARMANDO Lab Interpretation (test Abnormal code = 53722-3) [facility]-[id number] 22:43:05 Test Item Value Reference Range Interpretation Comments POC-Sodium (test code = 137 meq/L 135-148 : TE STED AT [facility] 1542) [address] [place] [address], 770 30: Control Technician/Techni kelle ID = [id number] for MARFIL, JOSE ARMANDO Lab Interpretation (test Normal code = 18888-2) [facility]-[id number] 22:43:05 Test Item Value Reference Range Interpretation Comments POC-Potassium (test code 3.4 meq/L 3.6-5.5 L : T ESTED AT [facility] = 1540) [address] [place] [address], 770 30: Control Technician/Techni kelle ID = [id number] for MARFIL, JOSE ARMANDO Lab Interpretation (test Abnormal code = 04585-9) [facility]:05 Test Item Value Reference Range Interpretation Comments POC-Sodium (test code = 137 meq/L 135-148 : TE STED AT [facility] 1542) [address] [place] [address], 770 30: Control Technician/Techni kelle ID = [id number] for MARFIL, JOSE ARMANDO Lab Interpretation (test Normal code = 80493-7) [facility]-Wrxwwhduz0705-77-39 22:43:05 Test Item Value Reference Range Interpretation Comments POC-Potassium (test code 3.4 meq/L 3.6-5.5 L : T ESTED AT [facility] = 1540) [address] [place] [address], 770 30: Control Technician/Techni kelle ID = [id number] for MARFIL, JOSE ARMANDO Lab Interpretation (test Abnormal code = 05363-5) [facility] 22:43:05 Test Item Value Reference Range Interpretation Comments POC-Sodium (test code = 137 meq/L 135-148 : TE STED AT [facility] 1542) [address] [place] [address], 770 30: Control Technician/Techni kelle ID = [id number] for MARFIL, JOSE ARMANDO Lab Interpretation (test Normal code = 99443-3) [facility]-[id number] 22:43:05 Test Item Value Reference Range Interpretation Comments POC-Potassium (test code 3.4 meq/L 3.6-5.5 L : T ESTED AT [facility] = 1540) [address] [place] [address], 770 30: Control Technician/Techni kelle ID = [id number] for MARFIL, JOSE ARMANDO Lab Interpretation (test Abnormal code = 48556-0) [facility]-[id number] 22:43:05 Test Item Value Reference Range Interpretation Comments POC-Sodium (test code = 137 meq/L 135-148 : TE STED AT [facility] 1542) [address] [place] [address], 770 30: Control Technician/Techni kelle ID = [id number] for MARFIL, JOSE ARMANDO Lab Interpretation (test Normal code = 06167-3) [facility]-Nckmdctrr7082-66-78 22:43:05 Test Item Value Reference Range Interpretation Comments POC-Potassium (test code 3.4 meq/L 3.6-5.5 L : T ESTED AT [facility] = 1540) [address] [place] [address], 770 30: Control Technician/Techni kelle ID = [id number] for MARFIL, JOSE ARMANDO Lab Interpretation (test Abnormal code = 92284-3) [facility]-[id number] 22:43:05 Test Item Value Reference Range Interpretation Comments POC-Sodium (test code = 137 meq/L 135-148 : TE STED AT [facility] 1542) [address] [place] [address], 770 30: Control Technician/Techni kelle ID = [id number] for MARFIL, JOSE ARMANDO Lab Interpretation (test Normal code = 87608-4) [facility]-Xgkmsjutb3582-63-58 22:43:05 Test Item Value Reference Range Interpretation Comments POC-Potassium (test code 3.4 meq/L 3.6-5.5 L : T ESTED AT [facility] = 1540) [address] [place] [address], 770 30: Control Technician/Techni kelle ID = [id number] for MARFIL, JOSE ARMANDO Lab Interpretation (test Abnormal code = 64867-6) [facility]-[id number] 22:43:05 Test Item Value Reference Range Interpretation Comments POC-Sodium (test code = 137 meq/L 135-148 : TE STED AT [facility] 1542) [address] [place] [address], 770 30: Control Technician/Techni kelle ID = [id number] for MARFIL, JOSE ARMANDO Lab Interpretation (test Normal code = 38282-8) [facility]-Rhbnjlbfb2485-35-71 22:43:05 Test Item Value Reference Range Interpretation Comments POC-Potassium (test code 3.4 meq/L 3.6-5.5 L : T ESTED AT [facility] = 1540) [address] [place] [address], 770 30: Control Technician/Techni kelle ID = [id number] for MARFIL, JOSE ARMANDO Lab Interpretation (test Abnormal code = 33464-6) [facility] 22:43:05 Test Item Value Reference Range Interpretation Comments POC-Sodium (test code = 137 meq/L 135-148 : TE STED AT [facility] 1542) [address] [place] [address], 770 30: Control Technician/Techni kelle ID = [id number] for MARFIL, JOSE ARMANDO Lab Interpretation (test Normal code = 09677-9) [facility]-Bhjgketoz1015-04-69 22:43:05 Test Item Value Reference Range Interpretation Comments POC-Potassium (test code 3.4 meq/L 3.6-5.5 L : T ESTED AT [facility] = 1540) [address] [place] [address], 770 30: Control Technician/Techni kelle ID = [id number] for MARFIL, JOSE ARMANDO Lab Interpretation (test Abnormal code = 23709-1) [facility]v7446-[facility]-95 22:43:05 Test Item Value Reference Range Interpretation Comments POC-Sodium (test code = 137 meq/L 135-148 : TE STED AT [facility] 1542) [address] [place] [address], 770 30: Control Technician/Techni kelle ID = [id number] for MARFIL, JOSE ARMANDO Lab Interpretation (test Normal code = 87391-2) [facility]-[id number] 22:43:05 Test Item Value Reference Range Interpretation Comments POC-SODIUM (BEAKER) 137 meq/L 135-148 : TESTED AT [facility] 6720 (test code = 1542) [facility], [address]: Control Technician/Techni kelle ID = [id number] for MARF [place], JOSE ARMANDO ZQAS-[id number] 22:43:05 Test Item Value Reference Range Interpretation Comments POC-POTASSIUM 3.4 meq/L 3.6-5.5 L : TESTED AT [facility] 6720 (BEAKER) (test code [place], = 1540) [address]: Control Technician/Techni kelle ID = [id number] for MARF [place], JOSE ARMANDO POC-Blood gases, [id number] 22:42:59 Test Item Value Reference Range Interpretation Comments Temp. Celsius-POC (test 101.3 code = 1834) FIO2-POC (test code = 28 1835) pH, Venous-POC (test 7.484 7.320-7.420 H : TESTE D AT [facility] code = 1842) [address] [place], [address] PCO2, Venous-POC (test 39.4 See_Comment L If [...] mated message] code = 1844) The system [employer] generated this result transmit levi reference range : 25.0 - 40.0 mm Hg. The reference r alba was not used to interpret this result as normal/abnormal . SO2, Venous-POC (test 87.0 % 40.0-70.0 H code = 1845) HCO3, Venous-POC (test 29.3 meq/L 21.0-29.0 H code = 1846) BE, Venous-POC (test 6.0 meq/L -2.0-3.0 H : code = 1847) Control Technician/Techni kelle ID = [id number] for MARFIL, JOSE ARMANDO Lab Interpretation Abnormal (test code = 83732-8) [facility]-Blood gases, [id number] 22:42:59 Test Item Value Reference Range Interpretation Comments Temp. Celsius-POC (test 101.3 code = 1834) FIO2-POC (test code = 28 1834) pH, Venous-POC (test 7.484 7.320-7.420 H : TESTE D AT [facility] code = 1842) [address] [place], [address] PCO2, Venous-POC (test 39.4 See_Comment L If [...] mated message] code = 1844) The system [employer] h generated this result transmit levi reference range : 25.0 - 40.0 mm Hg. The reference r alba was not used to interpret this result as normal/abnormal . SO2, Venous-POC (test 87.0 % 40.0-70.0 H code = 1845) HCO3, Venous-POC (test 29.3 meq/L 21.0-29.0 H code = 1846) BE, Venous-POC (test 6.0 meq/L -2.0-3.0 H : code = 1847) Control Technician/Techni kelle ID = [id number] for VIMAL JOSE ARMANDO Lab Interpretation Abnormal (test code = 66860-0) [facility]-Blood gases, [id number] 22:42:59 Test Item Value Reference Range Interpretation Comments Temp. Celsius-POC (test 101.3 code = 1834) FIO2-POC (test code = 28 1834) pH, Venous-POC (test 7.484 7.320-7.420 H : TESTE D AT [facility] code = 1842) [address] [facility], [address] PCO2, Venous-POC (test 39.4 See_Comment L If [...] mated message] code = 1844) The system [employer] generated this result transmit levi reference range : 25.0 - 40.0 mm Hg. The reference r alba was not used to interpret this result as normal/abnormal . SO2, Venous-POC (test 87.0 % 40.0-70.0 H code = 1845) HCO3, Venous-POC (test 29.3 meq/L 21.0-29.0 H code = 1846) BE, Venous-POC (test 6.0 meq/L -2.0-3.0 H : code = 1847) Control Technician/Techni kelle ID = [id number] for HERBERT CELISE Lab Interpretation Abnormal (test code = 21835-1) [facility]-Blood gases, [id number] 22:42:59 Test Item Value Reference Range Interpretation Comments Temp. Celsius-POC (test 101.3 code = 1834) FIO2-POC (test code = 28 1835) pH, Venous-POC (test 7.484 7.320-7.420 H : TESTE D AT [facility] code = 1842) [address] [place], [address] PCO2, Venous-POC (test 39.4 See_Comment L If [...] mated message] code = 1844) The system [employer] generated this result transmit levi reference range : 25.0 - 40.0 mm Hg. The reference r alba was not used to interpret this result as normal/abnormal . SO2, Venous-POC (test 87.0 % 40.0-70.0 H code = 1845) HCO3, Venous-POC (test 29.3 meq/L 21.0-29.0 H code = 1846) BE, Venous-POC (test 6.0 meq/L -2.0-3.0 H : code = 1847) Control Technician/Techni kelle ID = [id number] for MARFIL, JOSE ARMANDO Lab Interpretation Abnormal (test code = 36014-7) [facility]-Blood gases, [id number] 22:42:59 Test Item Value Reference Range Interpretation Comments Temp. Celsius-POC (test 101.3 code = 1834) FIO2-POC (test code = 28 1835) pH, Venous-POC (test 7.484 7.320-7.420 H : TESTE D AT [facility] code = 1842) [address] [facility], [address] PCO2, Venous-POC (test 39.4 See_Comment L If [...] mated message] code = 1844) The system [employer] h generated this result transmit levi reference range : 25.0 - 40.0 mm Hg. The reference r alba was not used to interpret this result as normal/abnormal . SO2, Venous-POC (test 87.0 % 40.0-70.0 H code = 1845) HCO3, Venous-POC (test 29.3 meq/L 21.0-29.0 H code = 1846) BE, Venous-POC (test 6.0 meq/L -2.0-3.0 H : code = 1847) Control Technician/Techni kelle ID = [id number] for MARFIL, JOSE ARMANDO Lab Interpretation Abnormal (test code = 92381-9) [facility]-Blood gases, [id number] 22:42:59 Test Item Value Reference Range Interpretation Comments Temp. Celsius-POC (test 101.3 code = 1834) FIO2-POC (test code = 28 1835) pH, Venous-POC (test 7.484 7.320-7.420 H : TESTE D AT [facility] code = 1842) [address] [facility], [address] PCO2, Venous-POC (test 39.4 See_Comment L If [...] mated message] code = 1844) The system [employer] generated this result transmit levi reference range : 25.0 - 40.0 mm Hg. The reference r alba was not used to interpret this result as normal/abnormal . SO2, Venous-POC (test 87.0 % 40.0-70.0 H code = 1845) HCO3, Venous-POC (test 29.3 meq/L 21.0-29.0 H code = 1846) BE, Venous-POC (test 6.0 meq/L -2.0-3.0 H : code = 1847) Control Technician/Techni kelle ID = [id number] for LAURELJOSE ARMANDO DAVID Lab Interpretation Abnormal (test code = 86364-7) [facility]-Blood gases, [id number] 22:42:59 Test Item Value Reference Range Interpretation Comments Temp. Celsius-POC (test 101.3 code = 1834) FIO2-POC (test code = 28 1835) pH, Venous-POC (test 7.484 7.320-7.420 H : TESTE D AT [facility] code = 1842) [address] [facility], [address] PCO2, Venous-POC (test 39.4 See_Comment L If [...] mated message] code = 1844) The system [employer] generated this result transmit levi reference range : 25.0 - 40.0 mm Hg. The reference r alba was not used to interpret this result as normal/abnormal . SO2, Venous-POC (test 87.0 % 40.0-70.0 H code = 1845) HCO3, Venous-POC (test 29.3 meq/L 21.0-29.0 H code = 1846) BE, Venous-POC (test 6.0 meq/L -2.0-3.0 H : code = 1847) Control Technician/Techni kelle ID = [id number] for MARFIL, JOSE ARMANDO Lab Interpretation Abnormal (test code = 66129-8) [facility]-Blood gases, [id number] 22:42:59 Test Item Value Reference Range Interpretation Comments Temp. Celsius-POC (test 101.3 code = 1834) FIO2-POC (test code = 28 1835) pH, Venous-POC (test 7.484 7.320-7.420 H : TESTE D AT [facility] code = 1842) [address] [facility], [address] PCO2, Venous-POC (test 39.4 See_Comment L If [...] mated message] code = 1844) The system [employer] h generated this result transmit levi reference range : 25.0 - 40.0 mm Hg. The reference r alba was not used to interpret this result as normal/abnormal . SO2, Venous-POC (test 87.0 % 40.0-70.0 H code = 1845) HCO3, Venous-POC (test 29.3 meq/L 21.0-29.0 H code = 1846) BE, Venous-POC (test 6.0 meq/L -2.0-3.0 H : code = 1847) Control Technician/Techni kelle ID = [id number] for MARFIL, JOSE ARMANDO Lab Interpretation Abnormal (test code = 78763-0) [facility]-Blood gases, [id number] 22:42:59 Test Item Value Reference Range Interpretation Comments Temp. Celsius-POC (test 101.3 code = 1834) FIO2-POC (test code = 1834) pH, Venous-POC (test 7.484 7.320-7.420 H : TESTE D AT [facility] code = 1842) [address] [facility], [address] PCO2, Venous-POC (test 39.4 See_Comment L If [...] mated message] code = 1844) The system [employer] generated this result transmit levi reference range : 25.0 - 40.0 mm Hg. The reference r alba was not used to interpret this result as normal/abnormal . SO2, Venous-POC (test 87.0 % 40.0-70.0 H code = 1845) HCO3, Venous-POC (test 29.3 meq/L 21.0-29.0 H code = 1846) BE, Venous-POC (test 6.0 meq/L -2.0-3.0 H : code = 1847) Control Technician/Techni kelle ID = [id number] for JOSE ARMANDO CELIS Lab Interpretation Abnormal (test code = 56941-9) [facility]-Blood gases, [id number] 22:42:59 Test Item Value Reference Range Interpretation Comments Temp. Celsius-POC (test 101.3 code = 1834) FIO2-POC (test code = 1834) pH, Venous-POC (test 7.484 7.320-7.420 H : TESTE D AT [facility] code = 1842) [address] [place], [address] PCO2, Venous-POC (test 39.4 See_Comment L If [...] mated message] code = 1844) The system [employer] generated this result transmit levi reference range : 25.0 - 40.0 mm Hg. The reference r alba was not used to interpret this result as normal/abnormal . SO2, Venous-POC (test 87.0 % 40.0-70.0 H code = 1845) HCO3, Venous-POC (test 29.3 meq/L 21.0-29.0 H code = 1846) BE, Venous-POC (test 6.0 meq/L -2.0-3.0 H : code = 1847) Control Technician/Techni kelle ID = [id number] for MARFIL, JOSE ARMANDO Lab Interpretation Abnormal (test code = 78848-0) [facility]-Blood gases, [id number] 22:42:59 Test Item Value Reference Range Interpretation Comments Temp. Celsius-POC (test 101.3 code = 1834) FIO2-POC (test code = 28 183) pH, Venous-POC (test 7.484 7.320-7.420 H : TESTE D AT [facility] code = 1842) [address] [facility], [address] PCO2, Venous-POC (test 39.4 See_Comment L If [...] mated message] code = 1844) The system [employer] generated this result transmit levi reference range : 25.0 - 40.0 mm Hg. The reference r alba was not used to interpret this result as normal/abnormal . SO2, Venous-POC (test 87.0 % 40.0-70.0 H code = 1845) HCO3, Venous-POC (test 29.3 meq/L 21.0-29.0 H code = 1846) BE, Venous-POC (test 6.0 meq/L -2.0-3.0 H : code = 1847) Control Technician/Techni kelle ID = [id number] for MARFIL, JOSE ARMANDO Lab Interpretation Abnormal (test code = 24465-0) [facility]-Blood gases, [id number] 22:42:59 Test Item Value Reference Range Interpretation Comments Temp. Celsius-POC (test 101.3 code = 1834) FIO2-POC (test code = 28 1834) pH, Venous-POC (test 7.484 7.320-7.420 H : TESTE D AT [facility] code = 1842) [address] [place], [address] PCO2, Venous-POC (test 39.4 See_Comment L If [...] mated message] code = 1844) The system [employer] generated this result transmit levi reference range : 25.0 - 40.0 mm Hg. The reference r alba was not used to interpret this result as normal/abnormal . SO2, Venous-POC (test 87.0 % 40.0-70.0 H code = 1845) HCO3, Venous-POC (test 29.3 meq/L 21.0-29.0 H code = 1846) BE, Venous-POC (test 6.0 meq/L -2.0-3.0 H : code = 1847) Control Technician/Techni kelle ID = [id number] for JOSE ARMANDO CELIS Lab Interpretation Abnormal (test code = 36574-1) [facility]-Blood gases, [id number] 22:42:59 Test Item Value Reference Range Interpretation Comments Temp. Celsius-POC (test 101.3 code = 1834) FIO2-POC (test code = 1834) pH, Venous-POC (test 7.484 7.320-7.420 H : TESTE D AT [facility] code = 1842) [address] [place], [address] PCO2, Venous-POC (test 39.4 See_Comment L If [...] mated message] code = 1844) The system [employer] generated this result transmit levi reference range : 25.0 - 40.0 mm Hg. The reference r alba was not used to interpret this result as normal/abnormal . SO2, Venous-POC (test 87.0 % 40.0-70.0 H code = 1845) HCO3, Venous-POC (test 29.3 meq/L 21.0-29.0 H code = 1846) BE, Venous-POC (test 6.0 meq/L -2.0-3.0 H : code = 1847) Control Technician/Techni kelle ID = [id number] for MARFILWILFRIDOJOSE ARMANDO Lab Interpretation Abnormal (test code = 00178-7) [facility]-Blood gases, [id number] 22:42:59 Test Item Value Reference Range Interpretation Comments Temp. Celsius-POC (test 101.3 code = 1834) FIO2-POC (test code = 28 1835) pH, Venous-POC (test 7.484 7.320-7.420 H : TESTE D AT [facility] code = 1842) [address] [facility], [address] PCO2, Venous-POC (test 39.4 See_Comment L If [...] mated message] code = 1844) The system [employer] generated this result transmit levi reference range : 25.0 - 40.0 mm Hg. The reference r alba was not used to interpret this result as normal/abnormal . SO2, Venous-POC (test 87.0 % 40.0-70.0 H code = 1845) HCO3, Venous-POC (test 29.3 meq/L 21.0-29.0 H code = 1846) BE, Venous-POC (test 6.0 meq/L -2.0-3.0 H : code = 1847) Control Technician/Techni kelle ID = [id number] for MARFIL, JOSE ARMANDO Lab Interpretation Abnormal (test code = 72298-6) [facility]-Blood gases, [id number] 22:42:59 Test Item Value Reference Range Interpretation Comments Temp. Celsius-POC (test 101.3 code = 1834) FIO2-POC (test code = 28 1834) pH, Venous-POC (test 7.484 7.320-7.420 H : TESTE D AT [facility] code = 1842) [address] [facility], [address] PCO2, Venous-POC (test 39.4 See_Comment L If [...] mated message] code = 1844) The system [employer] generated this result transmit levi reference range : 25.0 - 40.0 mm Hg. The reference r alba was not used to interpret this result as normal/abnormal . SO2, Venous-POC (test 87.0 % 40.0-70.0 H code = 1845) HCO3, Venous-POC (test 29.3 meq/L 21.0-29.0 H code = 1846) BE, Venous-POC (test 6.0 meq/L -2.0-3.0 H : code = 1847) Control Technician/Techni kelle ID = [id number] for MARFIL, JOSE ARMANDO Lab Interpretation Abnormal (test code = 42407-0) [facility]-Blood gases, [id number] 22:42:59 Test Item Value Reference Range Interpretation Comments Temp. Celsius-POC (test 101.3 code = 1834) FIO2-POC (test code = 28 1834) pH, Venous-POC (test 7.484 7.320-7.420 H : TESTE D AT [facility] code = 1842) [address] [facility], [address] PCO2, Venous-POC (test 39.4 See_Comment L If [...] mated message] code = 1844) The system [employer] generated this result transmit levi reference range : 25.0 - 40.0 mm Hg. The reference r alba was not used to interpret this result as normal/abnormal . SO2, Venous-POC (test 87.0 % 40.0-70.0 H code = 1845) HCO3, Venous-POC (test 29.3 meq/L 21.0-29.0 H code = 1846) BE, Venous-POC (test 6.0 meq/L -2.0-3.0 H : code = 1847) Control Technician/Techni kelle ID = [id number] for HERBERT CELISE Lab Interpretation Abnormal (test code = 74624-4) [facility]-Blood gases, [id number] 22:42:59 Test Item Value Reference Range Interpretation Comments Temp. Celsius-POC (test 101.3 code = 1834) FIO2-POC (test code = 28 1835) pH, Venous-POC (test 7.484 7.320-7.420 H : TESTE D AT [facility] code = 1842) [address] [place], [address] PCO2, Venous-POC (test 39.4 See_Comment L If [...] mated message] code = 1844) The system [employer] generated this result transmit levi reference range : 25.0 - 40.0 mm Hg. The reference r alba was not used to interpret this result as normal/abnormal . SO2, Venous-POC (test 87.0 % 40.0-70.0 H code = 1845) HCO3, Venous-POC (test 29.3 meq/L 21.0-29.0 H code = 1846) BE, Venous-POC (test 6.0 meq/L -2.0-3.0 H : code = 1847) Control Technician/Techni kelle ID = [id number] for MARFIL, JOSE ARMANDO Lab Interpretation Abnormal (test code = 69545-2) [facility] [id number] 22:42:59 Test Item Value Reference Range Interpretation Comments TEMP, CELSIUS-POC 101.3 (BEAKER) (test code = 1834) FIO2-POC (BEAKER) 28 (test code = 1835) PH, VENOUS-POC 7.484 7.320-7.420 H : TESTED AT [facility] 6720 (BEAKER) (test code [facility], = 1842) [address] PCO2, VENOUS-POC 39.4 mm Hg 41.0-51.0 L [...] BASE EXCESS, 6.0 meq/L -2.0-3.0 H : Control Technician/Tech mayte ID VENOUS-POC (BEAKER) = [id number] for MARFIL, (test code = 1847) JOSE ARMANDO LACTIC ACID, [id number] 22:23:56 Test Item Value Reference Range Interpretation Comments LACTATE BLOOD VENOUS 0.92 mmol/L 0.50-2.20 Specime n moderately (2) (BEAKER) (test hemolyzed code = 2872) Control Technician ID - BSPOCT-GLUCOSE [id number] 21:35:23 Test Item Value Reference Range Interpretation Comments POC-GLUCOSE METER 125 mg/dL 70-110 H : TESTED A T [facility] 6720 (BEAKER) (test code = [facility], 1538) [address]: Control Technician/Techni kelle ID = [id number] for GHADA BECK POCT-GLUCOSE [id number] 17:05:43 Test Item Value Reference Range Interpretation Comments POC-GLUCOSE METER 224 mg/dL 70-110 H : TESTED A T [facility] 6720 (BEAKER) (test code = [facility], 1538) 20548: Control Technician/Techni kelle ID = [id number] for Re yes, Maranda POCT-GLUCOSE [id number] 16:33:44 Test Item Value Reference Range Interpretation Comments POC-GLUCOSE METER 108 mg/dL 70-110 : TESTED A T [facility] 6720 (BEAKER) (test code = [facility], 1538) 48477: Control Technician/Techni kelle ID = [id number] for Ag Herminia ball POCT-GLUCOSE [id number] 07:38:21 Test Item Value Reference Range Interpretation Comments POC-GLUCOSE METER 185 mg/dL 70-110 H : TESTED A T [facility] 6720 (BEAKER) (test code = [facility], 1538) 22614: Control Technician/Techni kelle ID = [id number] for Re yes, Maranda BASIC METABOLIC [id number] 07:20:13 Test Item Value Reference Range Interpretation [...] S NOT APPLICABLE FOR DIALYSIS PATIEN TS. Control Technician ID - HIEN [id number] 06:54:10 Test Item Value Reference Range Interpretation Comments PHOSPHORUS (BEAKER) (test code = 4.6 mg/dL 2.3-4.7 604) Control Technician ID - HIEN [id number] 06:54:09 Test Item Value Reference Range Interpretation Comments MAGNESIUM (BEAKER) (test code = 2.2 mg/dL 1.6-2.6 627) Control Technician ID - HIEN MCBC W/PLT COUNT & AUTO [id number] 04:53:46 Test Item Value Reference Range Interpretation [...] PERCENT (BEAKER) (test code = 2801) POCT-GLUCOSE [id number] 21:34:14 Test Item Value Reference Range Interpretation Comments POC-GLUCOSE METER 260 mg/dL 70-110 H : TESTED A T [facility] 6720 (BEAKER) (test code = [facility], 1538) 35760: Control Technician/Techni kelle ID = [id number] for GHADA BECK POCT-GLUCOSE [id number] 16:27:30 Test Item Value Reference Range Interpretation Comments POC-GLUCOSE METER 170 mg/dL 70-110 H : TESTED A T [facility] 6720 (BEAKER) (test code = [facility], 1538) 28175: Control Technician/Techni kelle ID = [id number] for Soledad Rivera 2D Echo W/Doppler(CW/PW/Color)2021-06-09 16:08:58Ejection FractionSLEH ECHO HEARTLAB [facility] Echo W/Doppler(CW/PW/Color)2021-06-09 16:08:58Ejection FractionSLEH ECHO HEARTLAB [facility]2D Echo W/Doppler(CW/PW/Color) 2021-06-09 16:08:58Ejection FractionSLEH ECHO HEARTLAB [facility]2D Echo W/Doppler(CW/PW/Color)2021-06-09 16:08:58Ejection FractionSLEH ECHO HEARTLAB [facility]2D Echo W/Doppler(CW/PW/Color)2021-06-09 16:08:58Ejection FractionSLEH ECHO HEARTLAB [facility]2D Echo W/Doppler(CW/PW/Color) 2021-06-09 16:08:58Ejection [facility]ractionSLEH [facility]/PW/Color)2021-06-09 16:08:58Ejection FractionSLEH ECHO HEARTLAB [facility]2D Echo W/Doppler(CW/PW/Color)2021-06-09 16:08:58Ejection FractionSLEH ECHO HEARTLAB [facility]2D Echo W/Doppler(CW/PW/Color) 2021-06-09 16:08:58Ejection FractionSLEH ECHO HEARTLAB [facility]2D Echo W/Doppler(CW/PW/Color)2021-06-09 16:08:58Ejection FractionSLEH ECHO HEARTLAB [facility]2D Echo W/Doppler(CW/PW/Color)2021-06-09 16:08:58Ejection FractionSLEH ECHO HEARTLAB [facility]2D Echo W/Doppler(CW/PW/Color) 2021-06-09 16:08:58Ejection FractionSLEH ECHO [facility]ARTLAB [facility] W/Doppler(CW/PW/Color)2021-06-09 16:08:58Ejection FractionSLEH ECHO HEARTLAB [facility]2D Echo W/Doppler(CW/PW/Color)2021-06-09 16:08:58Ejection FractionSLEH ECHO HEARTLAB [facility]2D Echo W/Doppler(CW/PW/Color) 2021-06-09 16:08:58Ejection FractionSLEH ECHO HEARTLAB [facility] Echo W/Doppler(CW/PW/Color)2021-06-09 16:08:58Ejection FractionSLEH ECHO HEARTLAB SHANDRA [facility] Echo W/Doppler(CW/PW/Color)2021-06-09 16:08:58Ejection FractionSLEH ECHO HEARTLAB [facility] [id number] 16:06:54Ejection FractionSLEH ECHO HEARTLAB [facility] fiqj0748-92-06 16:06:54Ejection FractionSLEH ECHO HEARTLAB [facility] zuzn2483-23-01 16:06:54Ejection FractionSLEH ECHO HEARTLAB [facility] [id number] 16:06:54Ejection FractionSLEH ECHO HEARTLAB [facility] [id number] 16:06:54Ejection FractionSLEH ECHO HEARTLAB [facility] pffe2508-13-79 16:06:54Ejection FractionSLEH ECHO HEARTLAB [facility] kevq7893-60-12 16:06:54Ejection FractionSLEH ECHO HEARTLAB [facility] ugrw1377-22-23 16:06:54Ejection FractionSLEH ECHO HEARTLAB [facility] [id number] 16:06:54Ejection FractionSLEH ECHO HEARTLAB [facility] ajjm3628-41-03 16:06:54Ejection FractionSLEH ECHO HEARTLAB [facility] [id number] 16:06:54Ejection FractionSLEH ECHO HEARTLAB [facility] [id number] 16:06:54Ejection FractionSLEH ECHO HEARTLAB [facility] jivd1476-86-25 16:06:54Ejection FractionSLEH ECHO HEARTLAB [facility] kzfp4561-81-93 16:06:54Ejection FractionSLEH ECHO HEARTLAB [facility] [id number] 16:06:54Ejection FractionSLEH ECHO HEARTLAB [facility] tpmk9841-61-78 16:06:54Ejection FractionSLEH ECHO HEARTLAB [facility] jpzh5622-08-49 16:06:54Ejection [facility]SLEH [facility] HospitalPO[facility]SE [id number] 06:23:12 Test Item Value Reference Range Interpretation Comments POC-GLUCOSE METER 250 mg/dL 70-110 H : TESTED A T [facility] 6720 (BEAKER) (test code = [facility], 1538) 03918: Control Technician/Techni kelle ID = [id number] for Tavia Bruce BASIC METABOLIC [id number] 04:37:07 Test Item Value Reference Range Interpretation [...] S NOT APPLICABLE FOR DIALYSIS PATIEN TS. Control Technician ID - RAKAN [id number] 04:30:49 Test Item Value Reference Range Interpretation Comments PHOSPHORUS (BEAKER) (test code = 3.8 mg/dL 2.3-4.7 604) Control Technician ID - RAKAN [id number] 04:30:48 Test Item Value Reference Range Interpretation Comments MAGNESIUM (BEAKER) (test code = 2.0 mg/dL 1.6-2.6 627) Control Technician ID - RAKAN WCBC W/PLT COUNT & AUTO [id number] 03:53:11 Test Item Value Reference Range Interpretation [...] (BEAKER) (test code = 2801) Hepatitis panel, [id number] 23:49:54 Test Item Value Reference Range Interpretation Comments Hep A IgM (test code = Nonreactive Nonreactive 20329-9) Hep B C IgM (test code = Nonreactive Nonreactive 47448-2) Hepatitis C Ab (test code = Nonreactive Nonreactive 63064-0) Hepatitis B surface antigen Nonreactive Nonreactive (test code = 5195-3) BRANDI (test code = BRANDI) Control Technician ID - DB Lab Interpretation (test Normal code = 00007-2) [facility] [id number] 23:49:54 Test Item Value Reference Range Interpretation Comments Hep A IgM (test code = Nonreactive Nonreactive 40760-0) Hep B C IgM (test code = Nonreactive Nonreactive 20618-6) Hepatitis C Ab (test code = Nonreactive Nonreactive 66024-6) Hepatitis B surface antigen Nonreactive Nonreactive (test code = 5195-3) BRANDI (test code = BRANDI) Control Technician ID - DB Lab Interpretation (test Normal code = 26601-6) [facility], [id number] 23:49:54 Test Item Value Reference Range Interpretation Comments Hep A IgM (test code = Nonreactive Nonreactive 74908-5) Hep B C IgM (test code = Nonreactive Nonreactive 42888-7) Hepatitis C Ab (test code = Nonreactive Nonreactive 35188-2) Hepatitis B surface antigen Nonreactive Nonreactive (test code = 5195-3) BRANDI (test code = BRANDI) Control Technician ID - DB Lab Interpretation (test Normal code = 83961-3) [facility] panel, [id number] 23:49:54 Test Item Value Reference Range Interpretation Comments Hep A IgM (test code = Nonreactive Nonreactive 23854-4) Hep B C IgM (test code = Nonreactive Nonreactive 05684-1) Hepatitis C Ab (test code = Nonreactive Nonreactive 33000-0) Hepatitis B surface antigen Nonreactive Nonreactive (test code = 5195-3) BRANDI (test code = BRANDI) Control Technician ID - DB Lab Interpretation (test Normal code = 72182-9) [facility] panel, [id number] 23:49:54 Test Item Value Reference Range Interpretation Comments Hep A IgM (test code = Nonreactive Nonreactive 29634-8) Hep B C IgM (test code = Nonreactive Nonreactive 65869-2) Hepatitis C Ab (test code = Nonreactive Nonreactive 29567-8) Hepatitis B surface antigen Nonreactive Nonreactive (test code = 5195-3) BRANDI (test code = BRANDI) Control Technician ID - DB Lab Interpretation (test Normal code = 93302-1) [facility] panel, [id number] 23:49:54 Test Item Value Reference Range Interpretation Comments Hep A IgM (test code = Nonreactive Nonreactive 09845-5) Hep B C IgM (test code = Nonreactive Nonreactive 82663-0) Hepatitis C Ab (test code = Nonreactive Nonreactive 67017-9) Hepatitis B surface antigen Nonreactive Nonreactive (test code = 5195-3) BRANDI (test code = BRANDI) Control Technician ID - DB Lab Interpretation (test Normal code = 60516-3) [facility] panel, [id number] 23:49:54 Test Item Value Reference Range Interpretation Comments Hep A IgM (test code = Nonreactive Nonreactive 12219-6) Hep B C IgM (test code = Nonreactive Nonreactive 21847-4) Hepatitis C Ab (test code = Nonreactive Nonreactive 57967-5) Hepatitis B surface antigen Nonreactive Nonreactive (test code = 5195-3) BRANDI (test code = BRANDI) Control Technician ID - DB Lab Interpretation (test Normal code = 63742-6) [facility] panel, [id number] 23:49:54 Test Item Value Reference Range Interpretation Comments Hep A IgM (test code = Nonreactive Nonreactive 27139-8) Hep B C IgM (test code = Nonreactive Nonreactive 87568-7) Hepatitis C Ab (test code = Nonreactive Nonreactive 78120-5) Hepatitis B surface antigen Nonreactive Nonreactive (test code = 5195-3) BRANDI (test code = BRANDI) Control Technician ID - DB Lab Interpretation (test Normal code = 06984-9) [facility] panel, [id number] 23:49:54 Test Item Value Reference Range Interpretation Comments Hep A IgM (test code = Nonreactive Nonreactive 93548-6) Hep B C IgM (test code = Nonreactive Nonreactive 13626-9) Hepatitis C Ab (test code = Nonreactive Nonreactive 88178-9) Hepatitis B surface antigen Nonreactive Nonreactive (test code = 5195-3) BRANDI (test code = BRANDI) Control Technician ID - DB Lab Interpretation (test Normal code = 16119-7) [facility] panel, [id number] 23:49:54 Test Item Value Reference Range Interpretation Comments Hep A IgM (test code = Nonreactive Nonreactive 45126-1) Hep B C IgM (test code = Nonreactive Nonreactive 07786-1) Hepatitis C Ab (test code = Nonreactive Nonreactive 99094-5) Hepatitis B surface antigen Nonreactive Nonreactive (test code = 5195-3) BRANDI (test code = BRANDI) Control Technician ID - DB Lab Interpretation (test Normal code = 61749-6) [facility] panel, [id number] 23:49:54 Test Item Value Reference Range Interpretation Comments Hep A IgM (test code = Nonreactive Nonreactive 38967-2) Hep B C IgM (test code = Nonreactive Nonreactive 41641-7) Hepatitis C Ab (test code = Nonreactive Nonreactive 03140-6) Hepatitis B surface antigen Nonreactive Nonreactive (test code = 5195-3) BRANDI (test code = BRANDI) Control Technician ID - DB Lab Interpretation (test Normal code = 58134-7) [facility] panel, [id number] 23:49:54 Test Item Value Reference Range Interpretation Comments Hep A IgM (test code = Nonreactive Nonreactive 35231-9) Hep B C IgM (test code = Nonreactive Nonreactive 65580-2) Hepatitis C Ab (test code = Nonreactive Nonreactive 28399-9) Hepatitis B surface antigen Nonreactive Nonreactive (test code = 5195-3) BRANDI (test code = BRANDI) Control Technician ID - DB Lab Interpretation (test Normal code = 02404-3) [facility] panel, [id number] 23:49:54 Test Item Value Reference Range Interpretation Comments Hep A IgM (test code = Nonreactive Nonreactive 23835-1) Hep B C IgM (test code = Nonreactive Nonreactive 48042-0) Hepatitis C Ab (test code = Nonreactive Nonreactive 92457-7) Hepatitis B surface antigen Nonreactive Nonreactive (test code = 5195-3) BRANDI (test code = BRANDI) Control Technician ID - DB Lab Interpretation (test Normal code = 33006-3) [facility] panel, [id number] 23:49:54 Test Item Value Reference Range Interpretation Comments Hep A IgM (test code = Nonreactive Nonreactive 30139-7) Hep B C IgM (test code = Nonreactive Nonreactive 46951-8) Hepatitis C Ab (test code = Nonreactive Nonreactive 36327-9) Hepatitis B surface antigen Nonreactive Nonreactive (test code = 5195-3) BRANDI (test code = BRANDI) Control Technician ID - DB Lab Interpretation (test Normal code = 48486-1) [facility] panel, [id number] 23:49:54 Test Item Value Reference Range Interpretation Comments Hep A IgM (test code = Nonreactive Nonreactive 50729-3) Hep B C IgM (test code = Nonreactive Nonreactive 26993-0) Hepatitis C Ab (test code = Nonreactive Nonreactive 56226-7) Hepatitis B surface antigen Nonreactive Nonreactive (test code = 5195-3) BRANDI (test code = BRANDI) Control Technician ID - DB Lab Interpretation (test Normal code = 22732-3) [facility] panel, [id number] 23:49:54 Test Item Value Reference Range Interpretation Comments Hep A IgM (test code = Nonreactive Nonreactive 85419-2) Hep B C IgM (test code = Nonreactive Nonreactive 46415-9) Hepatitis C Ab (test code = Nonreactive Nonreactive 00730-7) Hepatitis B surface antigen Nonreactive Nonreactive (test code = 5195-3) BRANDI (test code = BRANDI) Control Technician ID - DB Lab Interpretation (test Normal code = 66064-1) [facility], [id number] 23:49:54 Test Item Value Reference Range Interpretation Comments Hep A IgM (test code = Nonreactive Nonreactive 94266-9) Hep B C IgM (test code = Nonreactive Nonreactive 69645-2) Hepatitis C Ab (test code = Nonreactive Nonreactive 61767-6) Hepatitis B surface antigen Nonreactive Nonreactive (test code = 5195-3) BRANDI (test code = BRANDI) Control Technician ID - DB Lab Interpretation (test Normal code = 64457-3) [facility] PANEL, [id number] 23:49:54 Test Item Value Reference Range Interpretation Comments HEPATITIS A IGM ANTIBODY (BEAKER) Nonreactive Nonreactive (test code = 498) HEPATITIS B CORE IGM ANTIBODY Nonreactive Nonreactive (BEAKER) (test code = 645) HEPATITIS C ANTIBODY (BEAKER) Nonreactive Nonreactive (test code = 367) HEPATITIS B SURFACE ANTIGEN (2) Nonreactive Nonreactive (BEAKER) (test code = 2585) Control Technician ID - DBPOCT-GLUCOSE [id number] 21:22:04 Test Item Value Reference Range Interpretation Comments POC-GLUCOSE METER 193 mg/dL 70-110 H : TESTED A T [facility] 6720 (BEAKER) (test code = [facility], 1538) 05383: Control Technician/Techni kelle ID = [id number] for Tavia Bruce Hepatitis B surface [id number] 13:29:36 Test Item Value Reference Range Interpretation Comments Hepatitis B surface Nonreactive Nonreactive antigen (test code = 5195-3) BRANDI (test code = BRNADI) Specimen is considered negative for HBsAg. Lab Interpretation (test Normal code = 15825-9) [facility] [id number] 13:29:36 Test Item Value Reference Range Interpretation Comments Hepatitis B surface Nonreactive Nonreactive antigen (test code = 5195-3) BRANDI (test code = BRANDI) Specimen is considered negative for HBsAg. Lab Interpretation (test Normal code = 88673-5) [facility] surface mgtmsit3087-09-93 13:29:36 Test Item Value Reference Range Interpretation Comments Hepatitis B surface Nonreactive Nonreactive antigen (test code = 5195-3) BRANDI (test code = BRANDI) Specimen is considered negative for HBsAg. Lab Interpretation (test Normal code = 77164-8) [facility] B surface [id number] 13:29:36 Test Item Value Reference Range Interpretation Comments Hepatitis B surface Nonreactive Nonreactive antigen (test code = 5195-3) BRANDI (test code = BRANDI) Specimen is considered negative for HBsAg. Lab Interpretation (test Normal code = 37477-9) [facility] B surface [id number] 13:29:36 Test Item Value Reference Range Interpretation Comments Hepatitis B surface Nonreactive Nonreactive antigen (test code = 5195-3) BRANDI (test code = BRANDI) Specimen is considered negative for HBsAg. Lab Interpretation (test Normal code = 77273-9) [facility] B surface [id number] 13:29:36 Test Item Value Reference Range Interpretation Comments Hepatitis B surface Nonreactive Nonreactive antigen (test code = 5195-3) BRANDI (test code = BRANDI) Specimen is considered negative for HBsAg. Lab Interpretation (test Normal code = 27498-0) [facility] surface [id number] 13:29:36 Test Item Value Reference Range Interpretation Comments Hepatitis B surface Nonreactive Nonreactive antigen (test code = 5195-3) BRANDI (test code = BRANDI) Specimen is considered negative for HBsAg. Lab Interpretation (test Normal code = 66429-6) [facility] surface puvmybo4811-08-03 13:29:36 Test Item Value Reference Range Interpretation Comments Hepatitis B surface Nonreactive Nonreactive antigen (test code = 5195-3) BRANDI (test code = BRANDI) Specimen is considered negative for HBsAg. Lab Interpretation (test Normal code = 85846-0) [facility] surface sitnixs6811-95-91 13:29:36 Test Item Value Reference Range Interpretation Comments Hepatitis B surface Nonreactive Nonreactive antigen (test code = 5195-3) BRANDI (test code = BRANDI) Specimen is considered negative for HBsAg. Lab Interpretation (test Normal code = 13182-0) [facility] surface [id number] 13:29:36 Test Item Value Reference Range Interpretation Comments Hepatitis B surface Nonreactive Nonreactive antigen (test code = 5195-3) BRANDI (test code = BRANDI) Specimen is considered negative for HBsAg. Lab Interpretation (test Normal code = 70976-6) [facility] surface [id number] 13:29:36 Test Item Value Reference Range Interpretation Comments Hepatitis B surface Nonreactive Nonreactive antigen (test code = 5195-3) BRANDI (test code = BRANDI) Specimen is considered negative for HBsAg. Lab Interpretation (test Normal code = 75491-0) [facility] B surface [id number] 13:29:36 Test Item Value Reference Range Interpretation Comments Hepatitis B surface Nonreactive Nonreactive antigen (test code = 5195-3) BRANDI (test code = BRANDI) Specimen is considered negative for HBsAg. Lab Interpretation (test Normal code = 65795-9) [facility] B surface kwrgudt7890-04-30 13:29:36 Test Item Value Reference Range Interpretation Comments Hepatitis B surface Nonreactive Nonreactive antigen (test code = 5195-3) BRANID (test code = BRANDI) Specimen is considered negative for HBsAg. Lab Interpretation (test Normal code = 64984-2) [facility] surface [id number] 13:29:36 Test Item Value Reference Range Interpretation Comments Hepatitis B surface Nonreactive Nonreactive antigen (test code = 5195-3) BRANDI (test code = BRANDI) Specimen is considered negative for HBsAg. Lab Interpretation (test Normal code = 03775-9) [facility] surface hzlanon5742-12-02 13:29:36 Test Item Value Reference Range Interpretation Comments Hepatitis B surface Nonreactive Nonreactive antigen (test code = 5195-3) BRANDI (test code = BRANDI) Specimen is considered negative for HBsAg. Lab Interpretation (test Normal code = 91059-6) [facility] surface eppkdpj4935-92-68 13:29:36 Test Item Value Reference Range Interpretation Comments Hepatitis B surface Nonreactive Nonreactive antigen (test code = 5195-3) BRANDI (test code = BRANDI) Specimen is considered negative for HBsAg. Lab Interpretation (test Normal code = 57417-4) [facility] surface hqwkfya0786-77-23 13:29:36 Test Item Value Reference Range Interpretation Comments Hepatitis B surface Nonreactive Nonreactive antigen (test code = 5195-3) BRANDI (test code = BRANDI) Specimen is considered negative for HBsAg. Lab Interpretation (test Normal code = 37898-0) [facility] SURFACE [id number] 13:29:36 Test Item Value Reference Range Interpretation Comments HEPATITIS B SURFACE ANTIGEN (2) Nonreactive Nonreactive (BEAKER) (test code = 2585) Specimen is considered negative for HBsAg.U/S, ABDOMINAL, [id number] 13:10:00Abdomen limited area? Add comment if clarification is needed.- >LiverReason for exam:->hepatic nodularity reported [facility] : 1955 Sex: [...] Webb MDReport Verified Date/Time: 06/08/2021 13:10:45 SARS-COV2/RT-PCR ([facility])2021-06-08 12:35:29 Test Item Value Reference Range Interpretation Comments SARS-COV2/RT-PCR (test Negative Not Detected, Negative, code = 0595711) See external report for linked test SARS-COV-2 PERFORMING LAB [facility] (test code = 6810423) Negative result for this test determines that [...] of the Act.Fact Sheet for Healthcare Prov iders:https://www.[employer]/sites/default/files/product/documents/Fact_Sheet_HC _Fgzbrwegw_Ychg_TMFX-NuQ-6.pdfFact Sheet for Healthcare Patients:https://www.[employer]/sites/default/files/product/docume nts/Rxvj_Jfnnr_Cwwotelw_Pokn_OVNJ-RkS-3.pdfPerforming Laboratory:[facility], [place] [address]Xasmqco D, 25-Hydroxy 2021-06-08 11:10:06 Test Item Value Reference Range Interpretation Comments Vitamin D 25-Hydroxy 16.7 ng/mL 6.6-49.9 (test code = 2764) BRANDI (test code = BRANDI) Effective 01/12/2017: Reference Range ChangeNew: 6.6-49.9 ng/mL Previous: 13.0-47.8 ng/mL Recommended Vitamin D Target Range: 30.0-40.0 ng/mLOperator ID - DB Lab Interpretation (test Normal code = 28845-3) [facility], 98-Ulfdoys4740-27-07 11:10:06 Test Item Value Reference Range Interpretation Comments Vitamin D 25-Hydroxy 16.7 ng/mL 6.6-49.9 (test code = 2764) BRANDI (test code = BRANDI) Effective 01/12/2017: Reference Range ChangeNew: 6.6-49.9 ng/mL Previous: 13.0-47.8 ng/mL Recommended Vitamin D Target Range: 30.0-40.0 ng/mLOperator ID - DB Lab Interpretation (test Normal code = 64808-8) [facility], 31-[id number] 11:10:06 Test Item Value Reference Range Interpretation Comments Vitamin D 25-Hydroxy 16.7 ng/mL 6.6-49.9 (test code = 2764) BRANDI (test code = BRANDI) Effective 01/12/2017: Reference Range ChangeNew: 6.6-49.9 ng/mL Previous: 13.0-47.8 ng/mL Recommended Vitamin D Target Range: 30.0-40.0 ng/mLOperator ID - DB Lab Interpretation (test Normal code = 19027-0) [facility], 27-Rpbgsdr1652-75-07 11:10:06 Test Item Value Reference Range Interpretation Comments Vitamin D 25-Hydroxy 16.7 ng/mL 6.6-49.9 (test code = 2764) BRANDI (test code = BRANDI) Effective 01/12/2017: Reference Range ChangeNew: 6.6-49.9 ng/mL Previous: 13.0-47.8 ng/mL Recommended Vitamin D Target Range: 30.0-40.0 ng/mLOperator ID - DB Lab Interpretation (test Normal code = 42877-5) [facility], 76-Iwezzwc9310-32-07 11:10:06 Test Item Value Reference Range Interpretation Comments Vitamin D 25-Hydroxy 16.7 ng/mL 6.6-49.9 (test code = 2764) BRANDI (test code = BRANDI) Effective 01/12/2017: Reference Range ChangeNew: 6.6-49.9 ng/mL Previous: 13.0-47.8 ng/mL Recommended Vitamin D Target Range: 30.0-40.0 ng/mLOperator ID - DB Lab Interpretation (test Normal code = 51445-3) [facility] 18-[id number] 11:10:06 Test Item Value Reference Range Interpretation Comments Vitamin D 25-Hydroxy 16.7 ng/mL 6.6-49.9 (test code = 2764) BRANDI (test code = BRANDI) Effective 01/12/2017: Reference Range ChangeNew: 6.6-49.9 ng/mL Previous: 13.0-47.8 ng/mL Recommended Vitamin D Target Range: 30.0-40.0 ng/mLOperator ID - DB Lab Interpretation (test Normal code = 13205-5) [facility], 34-[id number] 11:10:06 Test Item Value Reference Range Interpretation Comments Vitamin D 25-Hydroxy 16.7 ng/mL 6.6-49.9 (test code = 2764) BRANDI (test code = BRANDI) Effective 01/12/2017: Reference Range ChangeNew: 6.6-49.9 ng/mL Previous: 13.0-47.8 ng/mL Recommended Vitamin D Target Range: 30.0-40.0 ng/mLOperator ID - DB Lab Interpretation (test Normal code = 90103-2) [facility], 60-Ekeypse4414-07-07 11:10:06 Test Item Value Reference Range Interpretation Comments Vitamin D 25-Hydroxy 16.7 ng/mL 6.6-49.9 (test code = 2764) BRANDI (test code = BRANDI) Effective 01/12/2017: Reference Range ChangeNew: 6.6-49.9 ng/mL Previous: 13.0-47.8 ng/mL Recommended Vitamin D Target Range: 30.0-40.0 ng/mLOperator ID - DB Lab Interpretation (test Normal code = 83680-7) [facility], 72-Ophrjub9395-12-07 11:10:06 Test Item Value Reference Range Interpretation Comments Vitamin D 25-Hydroxy 16.7 ng/mL 6.6-49.9 (test code = 2764) BRANDI (test code = BRANDI) Effective 01/12/2017: Reference Range ChangeNew: 6.6-49.9 ng/mL Previous: 13.0-47.8 ng/mL Recommended Vitamin D Target Range: 30.0-40.0 ng/mLOperator ID - DB Lab Interpretation (test Normal code = 35414-5) [facility], 40-[id number] 11:10:06 Test Item Value Reference Range Interpretation Comments Vitamin D 25-Hydroxy 16.7 ng/mL 6.6-49.9 (test code = 2764) BRANDI (test code = BRANDI) Effective 01/12/2017: Reference Range ChangeNew: 6.6-49.9 ng/mL Previous: 13.0-47.8 ng/mL Recommended Vitamin D Target Range: 30.0-40.0 ng/mLOperator ID - DB Lab Interpretation (test Normal code = 48261-4) [facility], 95-[id number] 11:10:06 Test Item Value Reference Range Interpretation Comments Vitamin D 25-Hydroxy 16.7 ng/mL 6.6-49.9 (test code = 2764) BRANDI (test code = BRANDI) Effective 01/12/2017: Reference Range ChangeNew: 6.6-49.9 ng/mL Previous: 13.0-47.8 ng/mL Recommended Vitamin D Target Range: 30.0-40.0 ng/mLOperator ID - DB Lab Interpretation (test Normal code = 83965-1) [facility], 37-[id number] 11:10:06 Test Item Value Reference Range Interpretation Comments Vitamin D 25-Hydroxy 16.7 ng/mL 6.6-49.9 (test code = 2764) BRANDI (test code = BRANDI) Effective 01/12/2017: Reference Range ChangeNew: 6.6-49.9 ng/mL Previous: 13.0-47.8 ng/mL Recommended Vitamin D Target Range: 30.0-40.0 ng/mLOperator ID - DB Lab Interpretation (test Normal code = 37338-2) [facility], 88-[id number] 11:10:06 Test Item Value Reference Range Interpretation Comments Vitamin D 25-Hydroxy 16.7 ng/mL 6.6-49.9 (test code = 1989-3) BRANDI (test code = BRANDI) Effective 01/12/2017: Reference Range ChangeNew: 6.6-49.9 ng/mL Previous: 13.0-47.8 ng/mL Recommended Vitamin D Target Range: 30.0-40.0 ng/mLOperator ID - DB Lab Interpretation (test Normal code = 78117-5) [facility], 18-[id number] 11:10:06 Test Item Value Reference Range Interpretation Comments Vitamin D 25-Hydroxy 16.7 ng/mL 6.6-49.9 (test code = 1988-3) BRANDI (test code = BRANDI) Effective 01/12/2017: Reference Range ChangeNew: 6.6-49.9 ng/mL Previous: 13.0-47.8 ng/mL Recommended Vitamin D Target Range: 30.0-40.0 ng/mLOperator ID - DB Lab Interpretation (test Normal code = 66362-5) [facility], 56-[id number] 11:10:06 Test Item Value Reference Range Interpretation Comments Vitamin D 25-Hydroxy 16.7 ng/mL 6.6-49.9 (test code = 1988-) BRANDI (test code = BRANDI) Effective 01/12/2017: Reference Range ChangeNew: 6.6-49.9 ng/mL Previous: 13.0-47.8 ng/mL Recommended Vitamin D Target Range: 30.0-40.0 ng/mLOperator ID - DB Lab Interpretation (test Normal code = 54889-4) [facility], 82-[id number] 11:10:06 Test Item Value Reference Range Interpretation Comments Vitamin D 25-Hydroxy 16.7 ng/mL 6.6-49.9 (test code = 2764) BRANDI (test code = BRANDI) Effective 01/12/2017: Reference Range ChangeNew: 6.6-49.9 ng/mL Previous: 13.0-47.8 ng/mL Recommended Vitamin D Target Range: 30.0-40.0 ng/mLOperator ID - DB Lab Interpretation (test Normal code = 48337-1) [facility], 53-Ybobohh1446-42-07 11:10:06 Test Item Value Reference Range Interpretation Comments Vitamin D 25-Hydroxy 16.7 ng/mL 6.6-49.9 (test code = 2764) BRANDI (test code = BRANDI) Effective 01/12/2017: Reference Range ChangeNew: 6.6-49.9 ng/mL Previous: 13.0-47.8 ng/mL Recommended Vitamin D Target Range: 30.0-40.0 ng/mLOperator ID - DB Lab Interpretation (test Normal code = 32063-8) [facility], 22-[id number] 11:10:06 Test Item Value Reference Range Interpretation Comments VITAMIN D 25-OH (BEAKER) (test 16.7 ng/mL 6.6-49.9 code = 2764) Effective 01/12/2017: Reference Range ChangeNew: 6.6-49.9 ng/mL Previous: 13.0- 47.8 ng/mLRecommendedVitamin D Target Range: 30.0-40.0 ng/mLOperator ID - DBPTH, [id number] 11:05:08 Test Item Value Reference Range Interpretation Comments PTH (test code = 2731-8) 449.7 pg/mL 8.5-72.5 H BRANDI (test code = BRANDI) Control Technician ID - ADMIN Lab Interpretation (test Abnormal code = 53243-8) [facility], [id number] 11:05:08 Test Item Value Reference Range Interpretation Comments PTH (test code = 2731-8) 449.7 pg/mL 8.5-72.5 H BRANDI (test code = BRANDI) Control Technician ID - ADMIN Lab Interpretation (test Abnormal code = 58129-1) [facility], [id number] 11:05:08 Test Item Value Reference Range Interpretation Comments PTH (test code = 2731-8) 449.7 pg/mL 8.5-72.5 H BRANDI (test code = BRANDI) Control Technician ID - ADMIN Lab Interpretation (test Abnormal code = 27857-8) [facility], [id number] 11:05:08 Test Item Value Reference Range Interpretation Comments PTH (test code = 2731-8) 449.7 pg/mL 8.5-72.5 H BRANDI (test code = BRANDI) Control Technician ID - ADMIN Lab Interpretation (test Abnormal code = 33390-4) [facility], [id number] 11:05:08 Test Item Value Reference Range Interpretation Comments PTH (test code = 2731-8) 449.7 pg/mL 8.5-72.5 H BRANDI (test code = BRANDI) Control Technician ID - ADMIN Lab Interpretation (test Abnormal code = 67877-1) [facility], [id number] 11:05:08 Test Item Value Reference Range Interpretation Comments PTH (test code = 2731-8) 449.7 pg/mL 8.5-72.5 H BRANDI (test code = BRANDI) Control Technician ID - ADMIN Lab Interpretation (test Abnormal code = 81274-6) [facility], [id number] 11:05:08 Test Item Value Reference Range Interpretation Comments PTH (test code = 2731-8) 449.7 pg/mL 8.5-72.5 H BRANDI (test code = BRANDI) Control Technician ID - ADMIN Lab Interpretation (test Abnormal code = 32555-6) [facility], [id number] 11:05:08 Test Item Value Reference Range Interpretation Comments PTH (test code = 2731-8) 449.7 pg/mL 8.5-72.5 H BRANDI (test code = BRANDI) Control Technician ID - ADMIN Lab Interpretation (test Abnormal code = 66513-8) [facility], [id number] 11:05:08 Test Item Value Reference Range Interpretation Comments PTH (test code = 2731-8) 449.7 pg/mL 8.5-72.5 H BRANDI (test code = BRANDI) Control Technician ID - ADMIN Lab Interpretation (test Abnormal code = 83034-4) [facility], [id number] 11:05:08 Test Item Value Reference Range Interpretation Comments PTH (test code = 2731-8) 449.7 pg/mL 8.5-72.5 H BRANDI (test code = BRANDI) Control Technician ID - ADMIN Lab Interpretation (test Abnormal code = 86301-8) [facility], [id number] 11:05:08 Test Item Value Reference Range Interpretation Comments PTH (test code = 2731-8) 449.7 pg/mL 8.5-72.5 H BRANDI (test code = BRANDI) Control Technician ID - ADMIN Lab Interpretation (test Abnormal code = 13785-9) [facility], [id number] 11:05:08 Test Item Value Reference Range Interpretation Comments PTH (test code = 2731-8) 449.7 pg/mL 8.5-72.5 H BRANDI (test code = BRANDI) Control Technician ID - ADMIN Lab Interpretation (test Abnormal code = 31530-4) [facility], [id number] 11:05:08 Test Item Value Reference Range Interpretation Comments PTH (test code = 2731-8) 449.7 pg/mL 8.5-72.5 H BRANDI (test code = BRANDI) Control Technician ID - ADMIN Lab Interpretation (test Abnormal code = 16908-5) [facility], [id number] 11:05:08 Test Item Value Reference Range Interpretation Comments PTH (test code = 2731-8) 449.7 pg/mL 8.5-72.5 H BRANDI (test code = BRANDI) Control Technician ID - ADMIN Lab Interpretation (test Abnormal code = 99503-7) [facility], [id number] 11:05:08 Test Item Value Reference Range Interpretation Comments PTH (test code = 2731-8) 449.7 pg/mL 8.5-72.5 H BRANDI (test code = BRANDI) Control Technician ID - ADMIN Lab Interpretation (test Abnormal code = 46409-4) [facility], [id number] 11:05:08 Test Item Value Reference Range Interpretation Comments PTH (test code = 2731-8) 449.7 pg/mL 8.5-72.5 H BRANDI (test code = BRANDI) Control Technician ID - ADMIN Lab Interpretation (test Abnormal code = 25393-6) [facility], [id number] 11:05:08 Test Item Value Reference Range Interpretation Comments PTH (test code = 2731-8) 449.7 pg/mL 8.5-72.5 H BRANDI (test code = BRANDI) Control Technician ID - ADMIN Lab Interpretation (test Abnormal code = 71891-7) [facility], [id number] 11:05:08 Test Item Value Reference Range Interpretation Comments PARATHYROID HORMONE INTACT 449.7 pg/mL 8.5-72.5 H (BEAKER) (test code = 577) Control Technician ID - [id number] 09:50:35 Test Item Value Reference Range Interpretation Comments FERRITIN (BEAKER) (test code = 926.02 ng/mL 5.00-275.00 H 361) Control Technician ID - ADMINIRON, TIBC, % SAT. (WITHOUT FERRITIN)2021-06-08 09:30:51 Test Item Value Reference Range Interpretation Comments IRON (BEAKER) (test code = 547) 110.0 ug/dL 40.0-160.0 TOTAL IRON BINDING CAPACITY 135 ug/dL 250-450 L (BEAKER) (test code = 769) IRON % SATURATION (2) (BEAKER) 81 % 20-55 H (test code = 2590) Control Technician ID - ADMINPOCT-GLUCOSE [id number] 07:11:26 Test Item Value Reference Range Interpretation Comments POC-GLUCOSE METER 199 mg/dL 70-110 H : TESTED A T [facility] 6720 (BEAKER) (test code = YUDY LLOYD, 1538) [address]: Control Technician/Techni kelle ID = [id number] for Tavia Bruce Vitamin [id number] 06:28:47 Test Item Value Reference Range Interpretation Comments Vitamin B12 (test code = 1626 pg/mL 213-816 H 2132-9) BRANDI (test code = BRANDI) Control Technician ID - ADMIN Lab Interpretation (test Abnormal code = 23513-4) [facility] [id number] 06:28:47 Test Item Value Reference Range Interpretation Comments Vitamin B12 (test code = 1626 pg/mL 213-816 H 2132-9) BRANDI (test code = BRANDI) Control Technician ID - ADMIN Lab Interpretation (test Abnormal code = 59985-1) [facility] [id number] 06:28:47 Test Item Value Reference Range Interpretation Comments Vitamin B12 (test code = 1626 pg/mL 213-816 H 2132-9) BRANDI (test code = BRANDI) Control Technician ID - ADMIN Lab Interpretation (test Abnormal code = 46061-9) [facility] [id number] 06:28:47 Test Item Value Reference Range Interpretation Comments Vitamin B12 (test code = 1626 pg/mL 213-816 H 2132-9) BRANDI (test code = BRANDI) Control Technician ID - ADMIN Lab Interpretation (test Abnormal code = 31441-7) [facility] [id number] 06:28:47 Test Item Value Reference Range Interpretation Comments Vitamin B12 (test code = 1626 pg/mL 213-816 H 2132-9) BRANDI (test code = BRANDI) Control Technician ID - ADMIN Lab Interpretation (test Abnormal code = 29047-8) [facility] [id number] 06:28:47 Test Item Value Reference Range Interpretation Comments Vitamin B12 (test code = 1626 pg/mL 213-816 H 2132-9) BRANDI (test code = BRANDI) Control Technician ID - ADMIN Lab Interpretation (test Abnormal code = 16583-0) [facility] [id number] 06:28:47 Test Item Value Reference Range Interpretation Comments Vitamin B12 (test code = 1626 pg/mL 213-816 H 2132-9) BRANDI (test code = BRANDI) Control Technician ID - ADMIN Lab Interpretation (test Abnormal code = 28142-5) [facility] [id number] 06:28:47 Test Item Value Reference Range Interpretation Comments Vitamin B12 (test code = 1626 pg/mL 213-816 H 2132-9) BRANDI (test code = BRANDI) Control Technician ID - ADMIN Lab Interpretation (test Abnormal code = 14158-5) [facility] [id number] 06:28:47 Test Item Value Reference Range Interpretation Comments Vitamin B12 (test code = 1626 pg/mL 213-816 H 2132-9) BRANDI (test code = BRANDI) Control Technician ID - ADMIN Lab Interpretation (test Abnormal code = 99001-0) [facility] [id number] 06:28:47 Test Item Value Reference Range Interpretation Comments Vitamin B12 (test code = 1626 pg/mL 213-816 H 2132-9) BRANDI (test code = BRANDI) Control Technician ID - ADMIN Lab Interpretation (test Abnormal code = 95687-8) [facility] [id number] 06:28:47 Test Item Value Reference Range Interpretation Comments Vitamin B12 (test code = 1626 pg/mL 213-816 H 2132-9) BRANDI (test code = BRANDI) Control Technician ID - ADMIN Lab Interpretation (test Abnormal code = 35479-8) [facility] [id number] 06:28:47 Test Item Value Reference Range Interpretation Comments Vitamin B12 (test code = 1626 pg/mL 213-816 H 2132-9) BRANDI (test code = BRANDI) Control Technician ID - ADMIN Lab Interpretation (test Abnormal code = 30658-8) [facility] [id number] 06:28:47 Test Item Value Reference Range Interpretation Comments Vitamin B12 (test code = 1626 pg/mL 213-816 H 2132-9) BRANDI (test code = BRANDI) Control Technician ID - ADMIN Lab Interpretation (test Abnormal code = 69282-0) [facility] [id number] 06:28:47 Test Item Value Reference Range Interpretation Comments Vitamin B12 (test code = 1626 pg/mL 213-816 H 2132-9) BRANDI (test code = BRANDI) Control Technician ID - ADMIN Lab Interpretation (test Abnormal code = 95091-7) [facility] [id number] 06:28:47 Test Item Value Reference Range Interpretation Comments Vitamin B12 (test code = 1626 pg/mL 213-816 H 2132-9) BRANDI (test code = BRANDI) Control Technician ID - ADMIN Lab Interpretation (test Abnormal code = 50925-5) [facility] [id number] 06:28:47 Test Item Value Reference Range Interpretation Comments Vitamin B12 (test code = 1626 pg/mL 213-816 H 2132-9) BRANDI (test code = BRANDI) Control Technician ID - ADMIN Lab Interpretation (test Abnormal code = 76125-2) [facility] [id number] 06:28:47 Test Item Value Reference Range Interpretation Comments Vitamin B12 (test code = 1626 pg/mL 213-816 H 2132-9) BRANDI (test code = BRANDI) Control Technician ID - ADMIN Lab Interpretation (test Abnormal code = 87195-9) [facility] [id number] 06:28:47 Test Item Value Reference Range Interpretation Comments VITAMIN B12 (BEAKER) (test code = 1626 pg/mL 213-816 H 774) Control Technician ID - ADMINBASIC METABOLIC [id number] 06:22:27 Test Item Value Reference Range Interpretation [...] S NOT APPLICABLE FOR DIALYSIS PATIEN TS. Control Technician ID - [id number] 06:08:16 Test Item Value Reference Range Interpretation Comments MAGNESIUM (BEAKER) (test code = 2.3 mg/dL 1.6-2.6 627) Control Technician ID - [id number] 06:08:16 Test Item Value Reference Range Interpretation Comments PHOSPHORUS (BEAKER) (test code = 5.6 mg/dL 2.3-4.7 H 604) Control Technician ID - DBPROTHROMBIN TIME/[id number] 05:55:08 Test Item Value Reference Range Interpretation Comments PROTIME (BEAKER) 14.2 seconds 11.9-14.2 (test code = 759) INR (BEAKER) (test 1.12 See_Comment [Automat ed message] code = 370) The system [employer] generated this result transmitted ref erence range: <=5.90. The reference range was not used to int erpret this result as normal/abnormal . RECOMMENDED COUMADIN/WARFARIN INR THERAPY RANGESSTANDARD DOSE: 2.0 - 3.0 Includes: PROPHYLAXIS for venous thrombosis, systemic embolization; TREATMENT for venous thrombosis and/or pulmonary embolus.HIGH RISK: Target INR is 2.5-3.5 for patients with mechanical heart valves.CBC W/PLT COUNT & AUTO [id number] 05:42:08 Test Item Value Reference Range Interpretation [...] = 2801) RAD, CHEST, 1 VIEW, NON [id number] 02:35:00Reason for exam:->shortness of breathShould this be performed at the bedside?->Yes [facility] : 1955 Sex: FFINAL REPORT RAD, CHEST, 1 VIEW, NON DEPT INDICATION: shortness of breath COMPARISON: None FINDINGS: Portable frontal view of the chest. 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 Lungs and pleura: No airspace consolidation or effusion. No pneumothorax. Heart and mediastinum: Unremarkable cardiomediastinal contours. Additional findings: Status post median sternotomy. Signed: [facility] Verified Date/Time: 06/08/2021 02:35:39 POCT-GLUCOSE [id number] 23:26:33 Test Item Value Reference Range Interpretation Comments POC-GLUCOSE METER 279 mg/dL 70-110 H : TESTED A T [facility] 6720 (BEAKER) (test code = QUIQUEANTELMO [place] [facility], 1538) [address]: Control Technician/Techni kelle ID = [id number] for Tavia Bruce COMPREHENSIVE METABOLIC [id number] 22:28:11 Test Item Value Reference Range Interpretation [...] S NOT APPLICABLE FOR DIALYSIS PATIEN TS. Control Technician ID - DBVancomycin level, [id number] 22:19:31 Test Item Value Reference Range Interpretation Comments Vancomycin Rm (test 16.1 ug/mL code = 31911-6) BRANDI (test code = Reference Range: No BRANDI) NormalsOperator ID - DB [facility], [id number] 22:19:31 Test Item Value Reference Range Interpretation Comments Vancomycin Rm (test 16.1 ug/mL code = 81686-0) BRANDI (test code = Reference Range: No BRANDI) NormalsOperator ID - DB [facility], [id number] 22:19:31 Test Item Value Reference Range Interpretation Comments Vancomycin Rm (test 16.1 ug/mL code = 88841-9) BRANDI (test code = Reference Range: No BRANDI) NormalsOperator ID - DB [facility], [id number] 22:19:31 Test Item Value Reference Range Interpretation Comments Vancomycin Rm (test 16.1 ug/mL code = 74261-8) BRANDI (test code = Reference Range: No BRANDI) NormalsOperator ID - DB [facility], [id number] 22:19:31 Test Item Value Reference Range Interpretation Comments Vancomycin Rm (test 16.1 ug/mL code = 67404-5) BRANDI (test code = Reference Range: No BRANDI) NormalsOperator ID - DB [facility], [id number] 22:19:31 Test Item Value Reference Range Interpretation Comments Vancomycin Rm (test 16.1 ug/mL code = 33597-4) BRANDI (test code = Reference Range: No BRANDI) NormalsOperator ID - DB [facility], [id number] 22:19:31 Test Item Value Reference Range Interpretation Comments Vancomycin Rm (test 16.1 ug/mL code = 50139-6) BRANDI (test code = Reference Range: No BRANDI) NormalsOperator ID - DB [facility], [id number] 22:19:31 Test Item Value Reference Range Interpretation Comments Vancomycin Rm (test 16.1 ug/mL code = 51976-7) BRANDI (test code = Reference Range: No BRANDI) NormalsOperator ID - DB [facility], [id number] 22:19:31 Test Item Value Reference Range Interpretation Comments Vancomycin Rm (test 16.1 ug/mL code = 42555-9) BRANDI (test code = Reference Range: No BRANDI) NormalsOperator ID - DB [facility], [id number] 22:19:31 Test Item Value Reference Range Interpretation Comments Vancomycin Rm (test 16.1 ug/mL code = 51980-9) BRANDI (test code = Reference Range: No BRANDI) NormalsOperator ID - DB [facility], [id number] 22:19:31 Test Item Value Reference Range Interpretation Comments Vancomycin Rm (test 16.1 ug/mL code = 29578-9) BRANDI (test code = Reference Range: No BRANDI) NormalsOperator ID - DB [facility], [id number] 22:19:31 Test Item Value Reference Range Interpretation Comments Vancomycin Rm (test 16.1 ug/mL code = 38626-4) BRANDI (test code = Reference Range: No BRANDI) NormalsOperator ID - DB [facility], [id number] 22:19:31 Test Item Value Reference Range Interpretation Comments Vancomycin Rm (test 16.1 ug/mL code = 29186-7) BRANDI (test code = Reference Range: No BRANDI) NormalsOperator ID - DB [facility], [id number] 22:19:31 Test Item Value Reference Range Interpretation Comments Vancomycin Rm (test 16.1 ug/mL code = 60820-5) BRANDI (test code = Reference Range: No BRANDI) NormalsOperator ID - DB [facility], [id number] 22:19:31 Test Item Value Reference Range Interpretation Comments Vancomycin Rm (test 16.1 ug/mL code = 37485-7) BRANDI (test code = Reference Range: No BRANDI) NormalsOperator ID - DB [facility], [id number] 22:19:31 Test Item Value Reference Range Interpretation Comments Vancomycin Rm (test 16.1 ug/mL code = 29798-6) BRANDI (test code = Reference Range: No BRANDI) NormalsOperator ID - DB [facility], [id number] 22:19:31 Test Item Value Reference Range Interpretation Comments Vancomycin Rm (test 16.1 ug/mL code = 41904-2) BRANDI (test code = Reference Range: No BRANDI) NormalsOperator ID - DB [facility], [id number] 22:19:31 Test Item Value Reference Range Interpretation Comments VANCOMYCIN RANDOM (BEAKER) (test 16.1 ug/mL code = 523) Reference Range: No NormalsOperator ID - DBCBC W/PLT COUNT & AUTO [id number] 22:05:27 Test Item Value Reference Range Interpretation [...] Interpretation Comments POCT GLU (test code = 4375167571) 129 mg/dL 70-110 H Lab Interpretation (test code = Abnormal 76789-1) [facility] GLUCOSE (AUTOMATED)2021-05-22 17:41:02 Test Item Value Reference Range Interpretation Comments POCT GLU (test code = 8308401948) 120 mg/dL 70-110 H Lab Interpretation (test code = Abnormal 90333-7) [facility] GLUCOSE (AUTOMATED)2021-05-22 13:46:20 Test Item Value Reference Range Interpretation Comments POCT GLU (test code = 6328010136) 174 mg/dL 70-110 H Lab Interpretation (test code = Abnormal 34129-8) [facility] METABOLIC PANEL (NA, K, CL, CO2, GLUCOSE, BUN, CREATININE, CA)2021-05-22 10:34:14 Test Item Value Reference Range Interpretation Comments NA (test code = 128 mmol/L 135-145 L 1862938957) K (test code = 5.2 mmol/L 3.5-5.0 H 5738160490) CL (test code = 95 mmol/L 98-108 L 8691917881) CO2 TOTAL (test code = 24 mmol/L 23-31 2410566593) AGAP (test code = 2-16 2793395310) BUN (test code = 43 mg/dL 7-23 H 9149211225) GLUCOSE (test code = 182 mg/dL 70-110 H 4750566900) CREATININE (test code = 5.93 mg/dL 0.50-1.04 H 9894018167) CALCIUM (test code = 8.0 mg/dL 8.6-10.6 L 3398173103) eGFR (test code = mL/min/1.73m2 7811479931) BRANDI (test code = BRANDI) Association of [...] tests). Lab Interpretation Abnormal (test code = 47559-2) [facility] WITH [id number] 10:25:51 Test Item Value Reference Range Interpretation Comments WBC (test code = See_Comment [Automated 1257-2) message] The sy stem which generated this [...] (test code = 50.7 fL 39.0-49.9 H 22800-6) RDW-CV (test code = 14.6 % 12.0-15.5 788-0) PLT (test code = See_Comment L [Automated 777-3) message] The sy stem which generated this result transmitted reference range : 166 - 358 10*3/ ?L. The reference r alba was not used to interpret this result as normal/abnormal . MPV (test code = 11.2 fL 9.5-12.9 89209-0) NRBC/100 WBC (test See_Comment [Automat ed code = 0724403609) message] The system which generated this result transmitted reference range : 0.0 - 10.0 /100 WBCs. The refer ence range was not u sed to interpret th is result as normal/abnormal . NRBC x10^3 (test code <0.01 See_Comment [Auto mated = 2364437997) message] The s ystem which generated this result transmitted reference range : 10*3/?L. The reference range was not used to interpret this result as normal/abnormal . GRAN MAT (NEUT) % 75.4 % (test code = 770-8) IMM GRAN % (test code 0.70 % = 3496414309) LYMPH % (test code = 12.5 % 736-9) MONO % (test code = 10.3 % 5905-5) EOS % (test code = 0.8 % 713-8) BASO % (test code = 0.3 % 706-2) GRAN MAT x10^3(ANC) 4.54 10*3/uL 1.88-7.09 (test code = 9879054506) IMM GRAN x10^3 (test 0.04 10*3/uL 0.00-0.06 code = 4471148479) LYMPH x10^3 (test code 0.75 10*3/uL 1.32-3.29 L = 731-0) MONO x10^3 (test code 0.62 10*3/uL 0.33-0.92 = 742-7) EOS x10^3 (test code = 0.05 10*3/uL 0.03-0.39 711-2) BASO x10^3 (test code <0.03 0.01-0.07 = 704-7) Lab Interpretation Abnormal (test code = 93411-8) [facility] [id number] 05:24:06 Test Item Value Reference Range Interpretation Comments NT-proBNP (test code 032121 pg/mL See_Comment H [Autom ated = 9878457088) message] The system which generated this result transmitted reference range : <=125. The reference range was not used to interpret this result as normal/abnormal . BRANDI (test code = BRANDI) Biotin has been reported to cause a negative bias, interpret results relative to patient's use of biotin. Lab Interpretation Abnormal (test code = 96425-5) [facility] CampusGlucose, [id number] 04:46:54 Test Item Value Reference Range Interpretation Comments GLUCOSE (test code = 9712768566) 107 mg/dL 70-110 Lab Interpretation (test code = Normal 47452-9) [facility] CampusProtein Total [id number] 04:46:34 Test Item Value Reference Range Interpretation Comments T PROTEIN (test code = 5446011183) 6.1 g/dL 6.3-8.2 L Lab Interpretation (test code = Abnormal 23817-1) [facility] CampusLACTATE AGIFLKHSEHQRJ9714-10-05 04:46:18 Test Item Value Reference Range Interpretation Comments LDH (test code = 2699461194) 311 U/L 300-600 Lab Interpretation (test code = Normal 28992-7) [facility] CampusTROPONIN [id number] 00:24:29 Test Item Value Reference Interpretation Comments Range TROPONIN I (test 0.084 ng/mL See_Comment H [Automated code = 8518383761) message] The system which generated this result [...] biotin. Lab Interpretation Abnormal (test code = 36266-6) [facility] CampusCyto Pleural [id number] 23:21:29 Test Item Value Reference Range Interpretation Comments Case Report (test code = Non-Gynecologic 1115816977) Cytology ?Case: [id number] ?Authorizing Provider: ?Candido Robison DO ?Collected: ? 05/20/2021 1604 ?Ordering Location: ? ? [facility] Medicine Surgery Unit ?Received: ?05/20/2021 1631 ?Pathologist: ? Mariana, ? MD Duc ?Specimen: ? ?PLEURAL, RIGHT ? Final Diagnosis (test p5hjrZLfCBCce5tiJTIwp code = 2227974019) GFuZzEwMzNcZnRuYmpcdW MxIHtccnRmMVxlcGljOTY gVHyzzsOkIWIbtXReP7Hq cxjwHOuuZF0rZQ0zpOglh YQxpAPxKAOyQgEqo5jkw2 19yKKco4xsZYIVckvxrXv 9oNsjQ18uc8R3BdidE41q yKGxZIP0VJDoLVAtwZPcE TVfQNZ4QKBnuIVnJ2tvXH WwOT7edzlyUQtwIFazFZE knQC2VYUjyBEyN2MbUDXe GPvqIVZukvl6HfSlGa2md GVyeTcyMFxwYXJkXHBsYW luXGJcZnMyMFxwYXIgQS4 gIFBMRVVSQSwgUklHSFQ7 WTKOG3WUX1HZMTUGTIOvH zaIXJP1GRIvjrWxKRJfJU 4xPuPSKHECDqDaYt6TOW6 BTElHTkFOVCBDRUxMUyBc TrMkYZYOHTFDD34DGO9SB VxwYXJccGFyIFBhdWwgWW 21waodEU4SJEXvlRSxfQG idUoury10OLI5FFBfAfX0 LzIwMjJccHJvdGVjdDAgX HBsYWluXGZzMjAgICAyOj Z8ZIZWXLTnvuoeACA7m5z ydGYxXHNzdGVjZjIyMDAw ONYcf5pfUUAloKIiTwGnU zNcZnRuYmpcdWMxXGRlZm Upo7stm017fIAgi6qsPAL uDkA5bLAqRYRzlBcknbj7 gTsjTyIxKXUiy0grktZyT mNoYXJzZXQwIEFyaWFsO3 09BDEwMSmgf2zuc3HbGMS kdALma3W4DVXJXHoqEqWs A224d3auo7apmsPfdBQ0B CYqHVO3PVlznpIkgdQ3GR lmeOQaZyL6DJbsbhMdZRh jkvLvbuCzWqu3HLRbD272 AFE2eBzgy4qwKGL2JTJcK JVsJbvrSc6stZXzL893CY BbFYGIMVFhyYb0COUtumL ewwEsjJHUy916N644u3fe GRLkunZcwAuNjlmbo1mnE 319XHBhcGVydzEyMjQwXH JpqJRysRB3REOoGL2jmvd qFVmbCQvwNGAhfoX4GXTf wRLpU3IgHNSbKT3vdbkvM LE6QOtgYJGpJRL7CbGpPW Swg9Ypivn8IoCduq0qet3 7SCB3x4DkeGdoLRV5FWL7 LhAwAi6itLWpSHCjBL3hF cGstLIcKJKkzz23mCviWW zvrmEkxX2wRsGlKYGosMQ nXKWfPV7nqTVuHMOswW5g cmxjXHBnYnJkcmhlYWRcc FdbmbZlWh0ddArcVJB6KW tvC9ergT1fFcI8ZDzeD9g toO8gRMn7LDvhhNA5BDDs cB4eLA1djvuli0icOAzeO EdcIHDnluD0pzF4JHBkoT BxJ1HuiI5cVSJbUI3dxgm fz8pcHML0WVcyIEXdTGA4 TqQrNWRgr0Lrqot5HzPly 6OhsFWxXWznT29pd993SV WwbmIoV1uhyASwlirniAT urdspYBsrojR9NFBaJUBv YWluXGYxXGZzMjBcbGFuZ zEwMzNcaGljaFxmMVxkYm FwPRDiMBkdB5bsXaIaS1I yXGZzMjBccGFyIEkgaGF2 FCCgEYKiv34deSd1IXGih kdnc5NoSOPgfZRakRJrdY 6aysXat8ynTAPyURAvVSV nF1OmPOJ6lWQbZDSbvRRw iYF6ME8opdEjRO0bJNZnX nkgcmVzaWRlbnRzLCBmZW tda6qqJW9tTPLvtJnyeD8 xdTQ0VKIzz5olrMBdbSGb k1xjr1JgwzBpGYcsJLKtL IixEUOaLVZcIL1sJDRveF RvbsJwk0U8TpewpYExnzf mPaexwyP0YEbwwatnJHSe FGhfQ5inUqQbECNyhHfmZ lusi1WbGVVbUKHpItaekQ FyfX0= Final Diagnosis Comment p6regGZeVAVicFM4GzSpI (test code = 3690580452) CHgu5yqj2JzsFWyfAUjYB mccCNoidVcoj87bXU9rR1 3GT2mAYCjFqK7GGTgfmR5 Ldm3VYBaWTHgzCYgR001l 8tth7ihxxPdqYK5bJfqHI WnaxivEcJ2POxkWZSqpao fUYq3IVgoXUPauXB2PKTt cNBnY3DvZMKzCR1fqmq1A OE1UBsrTEKvBkC2JARyyI EgODIwrUuoTBupj596XRS 8GcVhTURploPvqVcneY5v ZnMyMCBTbWVhcnMgYXJlI NHvnZYzG8CrvFKiFWRyRL 9gRASiw7kzoaHxTJUbZP9 tT55xjOPut3BuNVplFTnx L4AeeEXvPT4xESHod81zG OJgIG3oriYuRbNWthVqLG mfV87rdcGqR6JgeSCziHI drgXhDhlaRR7uFOQlak1= Clinical Information Clinical Hx: ESRD (test code = 1286959569) Gross Description (test z5ufrCLfPOYgzIW8WaUuV code = 2973951738) BRpn5kem7BszIEgoFBqGP thaPShpgDglv40pFB8qT9 2LF2lKTQyZaB4EBZrtjE1 Arc8BRMcMITtpLCnC080m 8npf3ctibDmkJR1xWpqQK VwbqsdMqR5TPufNQMmmcz bRAr9XUcxHCYrkQR3TOWe tUWtF7QnCLHvWB4urpk6J XS8CSvrDCJmEhO4ZTMbyO QpCHUyiVdwANitq248UPS 8YoHeKNFqvfP2XMekIBDg M3EqX9WrJRchBAA4ZEIaU CBcXHQgMSBcXGZsIFxcbm N5u5efYKPuyIRjBKW1VKg caWQgNTEwMDIgXFxkYiBP EbWuYqLpQKB6GZX4FCCzY Xe5OGqdA4IDAXEiMTA2LK TlYDb4RlD6LEb6IGVRMe9 nAIR0RKHySNr5SKK0RYM2 NCBcXHQgMiBcXGZsIFxcZ iBBcmlhbCBcXGZzIDEwIF phkyO1PLCrKUsqJCSqNxR ccGFyXGZzMjJccGFyIEEx LiAgUExFVVJBLCBSSUdIV LxxLTdQEhTYDJ5IYDWGId BGTFVJRFxwYXIgUmVjZWl 9LZGdZlDqh3xjfSGyAWJd ObbtQZ1mVYvfzDfgtyMyp HVpZCBccGFyIFByZXBhcm AbBKMpq6mjOUGbPSinSDL hcGFuaWNvbGFvdSBjeXRv f2YqkvkmPV1lVVXuNh2xC B1it1XoaAEhbJPvl9Jtgd NftrXiPTGbkHxffmdka8q hjBgld4TtvJApAC04PLIj kFBhDFA9TT8okAmgYDO0 Disclaimer (test code = v6uniAEzMDQiz6jnYDNzw 8743037484) GFuZzEwMzNcZnRuYmpcdW VqMNioxyIqEWsfc1SaU9H yMjAwMFxhbnNpXGRlZmxh oatqJJYuGAU6diZiEYWkH VmgWHLgOPibPf2fgJCnqS giWvNuAIOfc2jfdtJFTOi lKeIpS376QSPyBLrhh3on y2IkKNVqlSKeq0K7SUQOi iuyvUb0xBznI81pg3D1Tf moF5wgGFOqCQOxB5JxCN8 iHYPiEpp0QME9FNC5HZWd EAMeC9QwSO2fILZtvUCdX Xj3i6uvrVmbMTSdHFV5s1 sxDEqcpqLpSU8ibu0tiIz 3q8ecapFoSKNsKNCbbANM FTHcB9RlhJwuUh9seFm8t FhfQpmxUEO5Ens1RM9aak 65wxn4gAxwWPApfrvsTkO 7VQrkLMRvfvhjSCf9IExc VAYrcIB9NHDofBZyH4AkL PCfZX9mjuv1RKG4RQacVX FfFbX6AYJsdUSpYQUokBe uACeun971CIV5JuKuWN1u H5Fta1G3gR7ezCGrVWKow UGoJzWsZQDxea1klXZeIP fqx7PaFAO3fuA8zVTmjQB bCSWoLO36Knfwz6EdXooo i5ExS43bpUS1CVggt8ynB G7zHkG4dlUgLXoin4ekyX 3rXnT4CSawNH5cIQ6xBDC ghM3fjdqzEHPsXePutols WGXfyEbrbdQgJh8tdYzrU HM8NDwtO7bzlR5vPfS9OZ rrR3cvxS1qMQj2FAjcdUJ 3UTWymJ9qUD4ihftly7wo QBovUMzzAOAihlR3cvL7N SLacIWcS4BzpU5eAUZyNV 5srsvxx5pgVPZ7TFkuXGU xUOK6UuGfXJVbd3Ucmxd8 DzUte9BjyAAiCRcnB63nh 949QACzdvXrV5jkuVDqpv xaxNKymvqbWAmojrV1BNV ndxJkr6XlWMPzMKT7IUnk MSixrZBwRYBzoTwwr0snH 3RscGFyXHBsYWluXGYxXG ZzMjBcbGFuZzEwMzNcaGl jaFxmMVxkYmNoXGYxXGxv A9zxZqGpX2QbJDRyBhCsp SCgS0oqSVzitgWxMHHumu IwrIG1CKnhK6w9JMBcjfB wrLu8onGwTnQzMSPmXAN2 UIerkGDoQTCas2Jkvipsp ETaTv0sxOGxPSXvtN5hHP CaOJKcPQfsLB8tlAg4RPE AeVOrjSArFiUFAHWmBI43 gdZtSFYNrhmdr7Y4WJkjW YShv4PhfAQtW9bfh4MhTS Lmt31nSD9re1F1l3okLVW 5GK5rr2PfWYQbuJOtsOGd MJAhh9Phcwpbx0VoODFfg qOyk7MkBBOycyUjyZYrRD GplqEngd6spyNkECHiVAJ dD8MlrxtxpHletqBdZEHf tt3eysMeBQP3LBEEEHFuX LCvl2KafL3fbIIHZHZ0yP Wbmu7botDXpKLiQFTwnl9 2WJGrPB3iI5liBHVyNNQj whVlzXFwa3OkGLOtbTL1c TVoPC5BMcOEp91dEJMsHE EOfvFwDOVhuGcewBP7ynC 2kJ4jMAtNFIGfYcs+IFRo HUTOTYZaZD3tjpGxe4Llc gMunFfkDBYkcTQbl8XbwY Lbm1LeaJjqb2AbuOZqsTP kVY8jPUFaxphyCZDaKKYL KuFHKVNtvqX6o1VmMVQpN BSgFAA1iPnyiwn8SETxzB 8xLNSoL7oewwkeRGtlTMV ux3NreQ6sgYWHuZJro3Za gYCvcBXSpSLqBU3qqpFnO WfDKRoHPNU4ezWbWUIdc9 UdYOgnU9egY82pwHsbyTb 9yZY0ADB1xQ5gVbf+IFxw YXJccGFyIEFwcHJvcHJpY VThqTzzvtAdY5ZuubDvgX 9yeLBrnyZtNE8gVP7fL9N 3xFCrQHMwyrXzl5bsGKwq dmUgYmVlbiByZXZpZXdlZ YUhs2IeYGmuKIU4BNtswl BpbmNsdWRpbmcgSCZFLCB PeZJelPSkXHO0VNvprvMr rzNwDE6gjC6grMmjvY1ri EUurYL3sgvqNDRlCKBatI jhVIBwGP3ezSSkQORgeiR SlAafsTErnB0kC3JdYTDx BUBlfn8mEXToeK1kTOxww 2VydmljZXMgYXJlIHBlcm Fjkn0rTGKopAKWTB0JUSh xvNDha0DmqnZxY4uWHZM2 NUQwNjYwMjgxKSBleGNlc DMbMXArrj97BYHsdG5zsJ urVTPxqW1jzW9sjAuhhH5 jIlDdXsBaLCnkBU6fNLFf M0hnnLJiODYlLDKpP8jaD hRjxV7yuRzsMAdxXxWbIq IsKOfcWAP0eC== Embedded Images (test code = 0612079679) [facility] CampusPOCT GLUCOSE (AUTOMATED)2021-05-21 23:17:01 Test Item Value Reference Range Interpretation Comments POCT GLU (test code = 8846253514) 109 mg/dL 70-110 Lab Interpretation (test code = Normal 74938-3) [facility] CampusDIFF CONSULT [id number] 21:50:44 UNREMARKABLE LEUKOCYTES WITH ABSOLUTE LYMPHOPENIA. MODERATE NORMOCYTIC NORMOCHROMIC ANEMIA. MILD THROMBOCYTOPENIA.[facility] VITAMIN B12, [id number] 18:38:08 Test Item Value Reference Range Interpretation Comments VIT B12 (test code = >1000 240-930 H 1093241271) BRANDI (test code = BRANDI) Biotin has been reported to cause a positive bias, interpret results relative to patient's use of biotin. Lab Interpretation (test Abnormal code = 68041-5) [facility] CampusVITAMIN D, [id number] 17:51:01 Test Item Value Reference Range Interpretation Comments VIT D 25OH (test code = 24 ng/mL 25-80 L 73993-4) BRANDI (test code = BRANDI) Deficiency: <20 ng/mLInsufficiency: 20-24 ng/mLOptimal: 25-80 ng/mL Lab Interpretation (test Abnormal code = 35497-1) [facility] CampusFOLATE2022-02-17 17:42:20 Test Item Value Reference Range Interpretation Comments FOLATE SER (test code = 6.1 ng/mL 3.0-20.0 Biot in has been 2961757943) reported to cau se a positive bias, interpret resul ts relative to patient's use o f biotin. Lab Interpretation (test Normal code = 86944-8) [facility]PO[facility]SE (AUT[facility]ATED)2021-05-21 17:17:00 Test Item Value Reference Range Interpretation Comments POCT GLU (test code = 1367705977) 175 mg/dL 70-110 H Lab Interpretation (test code = Abnormal 52051-3) [facility] CampusTROPONIN [id number] 14:52:32 Test Item Value Reference Interpretation Comments Range TROPONIN I (test 0.109 ng/mL See_Comment H [Automated code = 8030423140) message] The system which generated this result [...] biotin. Lab Interpretation Abnormal (test code = 22603-4) [facility] CampusIRON [id number] 14:49:31 Test Item Value Reference Range Interpretation Comments IRON (test code = 1487244588) 30 ug/dL 50-160 L TIBC (test code = 0734417234) 185 ug/dL 250-410 L % FE SAT (test code = 7918414695) 16 % 20-50 L Lab Interpretation (test code = Abnormal 45869-1) [facility]POCT GLUCOSE (AUTOMATED)2021-05-21 14:06:00 Test Item Value Reference Range Interpretation Comments POCT GLU (test code = 6359737997) 191 mg/dL 70-110 H Lab Interpretation (test code = Abnormal 93720-4) [facility] CampusFERRITIN [id number] 14:05:25 Test Item Value Reference Range Interpretation Comments FERRITIN (test code = 715.0 ng/mL 11.0-264.0 H 8668492319) BRANDI (test code = BRANDI) Biotin has been reported to cause a negative bias, interpret results relative to patient's use of biotin. Lab Interpretation (test Abnormal code = 33926-1) [facility] CampusN-TERMINAL [id number] 13:56:37 Test Item Value Reference Range Interpretation Comments NT-proBNP (test code 145510 pg/mL See_Comment H [Autom ated = 9667500331) message] The system which generated this result transmitted reference range : <=125. The reference range was not used to interpret this result as normal/abnormal . BRANDI (test code = BRANDI) Biotin has been reported to cause a negative bias, interpret results relative to patient's use of biotin. Lab Interpretation Abnormal (test code = 99187-1) [facility] CampusTROPONIN [id number] 13:43:04 Test Item Value Reference Interpretation Comments Range TROPONIN I (test 0.100 ng/mL See_Comment H [Automated code = 6084011408) message] The system which generated this result [...] biotin. Lab Interpretation Abnormal (test code = 60148-6) [facility] CampusHEPATIC FUNCTION PANEL (81750) (ALB,T.PRO,BILI T,BU/BC,ALT,AST,ALK PHOS)2021-05-21 13:30:03 Test Item Value Reference Range Interpretation Comments TOTAL BILI (test code = 0925534591) 0.7 mg/dL 0.1-1.1 BILI UNCON (test code = 5834437302) 0.0 mg/dL 0.1-1.1 L BILI CONJ (test code = 9451548830) 0.0 mg/dL 0.0-0.3 T PROTEIN (test code = 6959752470) 7.2 g/dL 6.3-8.2 ALBUMIN (test code = 8886509073) 3.5 g/dL 3.5-5.0 ALK PHOS (test code = 8850265030) 156 U/L 34-122 H ALTv (test code = 1742-6) 12 U/L 5-35 AST(SGOT) (test code = 3055668982) 28 U/L 13-40 Lab Interpretation (test code = Abnormal 95852-3) [facility] CampusCB WITH [id number] 10:18:09 Test Item Value Reference Range Interpretation Comments WBC (test code = See_Comment [Automated 4190-2) message] The sy stem which generated this result transmitted reference range : 4.30 - 11.10 10*3/?L. The reference range was not used to interpret this result as normal/abnormal . RBC (test code = See_Comment L [Automated 709-8) message] The sy stem which generated this [...] (test code = 52.3 fL 39.0-49.9 H 85460-2) RDW-CV (test code = 14.9 % 12.0-15.5 788-0) PLT (test code = See_Comment L [Automated 777-3) message] The sy stem which generated this result transmitted reference range : 166 - 358 10*3/ ?L. The reference r alba was not used to interpret this result as normal/abnormal . MPV (test code = 11.0 fL 9.5-12.9 36663-2) NRBC/100 WBC (test See_Comment [Automat ed code = 9834250825) message] The system which generated this result transmitted reference range : 0.0 - 10.0 /100 WBCs. The refer ence range was not u sed to interpret th is result as normal/abnormal . NRBC x10^3 (test code <0.01 See_Comment [Auto mated = 6538310661) message] The s ystem which generated this result transmitted reference range : 10*3/?L. The reference range was not used to interpret this result as normal/abnormal . GRAN MAT (NEUT) % 74.4 % (test code = 770-8) IMM GRAN % (test code 0.30 % = 5914637124) LYMPH % (test code = 12.9 % 736-9) MONO % (test code = 11.2 % 5905-5) EOS % (test code = 0.7 % 713-8) BASO % (test code = 0.5 % 706-2) GRAN MAT x10^3(ANC) 4.40 10*3/uL 1.88-7.09 (test code = 9713112511) IMM GRAN x10^3 (test <0.03 0.00-0.06 code = 2574219264) LYMPH x10^3 (test code 0.76 10*3/uL 1.32-3.29 L = 731-0) MONO x10^3 (test code 0.66 10*3/uL 0.33-0.92 = 742-7) EOS x10^3 (test code = 0.04 10*3/uL 0.03-0.39 711-2) BASO x10^3 (test code 0.03 10*3/uL 0.01-0.07 = 704-7) Lab Interpretation Abnormal (test code = 47896-1) [facility] METABOLIC PANEL (NA, K, CL, CO2, GLUCOSE, BUN, CREATININE, CA)2021-05-21 10:17:29 Test Item Value Reference Range Interpretation Comments NA (test code = 132 mmol/L 135-145 L 1255097728) K (test code = 4.6 mmol/L 3.5-5.0 4844821791) CL (test code = 99 mmol/L 98-108 4095744031) CO2 TOTAL (test code = 27 mmol/L 23-31 8180845812) AGAP (test code = 2-16 7858735441) BUN (test code = 30 mg/dL 7-23 H 9581677460) GLUCOSE (test code = 129 mg/dL 70-110 H 4545154674) CREATININE (test code = 4.51 mg/dL 0.50-1.04 H 9926185630) CALCIUM (test code = 8.1 mg/dL 8.6-10.6 L 6281173747) eGFR (test code = mL/min/1.73m2 7230659839) BRANDI (test code = BRANDI) Association of [...] tests). Lab Interpretation Abnormal (test code = 60562-8) [facility] GLUCOSE (AUTOMATED)2021-05-21 02:24:31 Test Item Value Reference Range Interpretation Comments POCT GLU (test code = 5809945675) 123 mg/dL 70-110 H Lab Interpretation (test code = Abnormal 14599-1) [facility] GLUCOSE (AUTOMATED)2021-05-20 22:40:15 Test Item Value Reference Range Interpretation Comments POCT GLU (test code = 3682702538) 193 mg/dL 70-110 H Lab Interpretation (test code = Abnormal 23788-2) [facility] GLUCOSE (AUTOMATED)2021-05-20 17:24:39 Test Item Value Reference Range Interpretation Comments POCT GLU (test code = 4388215271) 129 mg/dL 70-110 H Lab Interpretation (test code = Abnormal 18850-8) [facility] CampusN-TERMINAL [id number] 16:20:09 Test Item Value Reference Range Interpretation Comments NT-proBNP (test code 415223 pg/mL See_Comment H [Autom ated = 8500399776) message] The system which generated this result transmitted reference range : <=125. The reference range was not used to interpret this result as normal/abnormal . BRANDI (test code = BRANDI) Biotin has been reported to cause a negative bias, interpret results relative to patient's use of biotin. Lab Interpretation Abnormal (test code = 28974-6) [facility] CampusPOCA GLUCOSE (AUTOMATED)2021-05-20 13:50:50 Test Item Value Reference Range Interpretation Comments POCT GLU (test code = 2752258198) 142 mg/dL 70-110 H Lab Interpretation (test code = Abnormal 43561-2) [facility] CampusLACAATE [id number] 11:29:26 Test Item Value Reference Range Interpretation Comments LDH (test code = 2540889388) 424 U/L 300-600 Slight hemolysis Lab Interpretation (test code Normal = 27445-9) [facility] (NA, K, CL, CO2, GLUCOSE, BUN, CREATININE, CA)2021-05-20 11:28:05 Test Item Value Reference Range Interpretation Comments NA (test code = 132 mmol/L 135-145 L 7802688236) K (test code = 4.6 mmol/L 3.5-5.0 2178773284) CL (test code = 97 mmol/L 98-108 L 8078438536) CO2 TOTAL (test code = 26 mmol/L 23-31 4058677749) AGAP (test code = 2-16 8669396530) BUN (test code = 44 mg/dL 7-23 H 9822890923) GLUCOSE (test code = 161 mg/dL 70-110 H 0637724454) CREATININE (test code = 6.29 mg/dL 0.50-1.04 H 5679916217) CALCIUM (test code = 8.0 mg/dL 8.6-10.6 L 0593428349) eGFR (test code = mL/min/1.73m2 1759448739) BRANDI (test code = BRANDI) Association of [...] tests). Lab Interpretation Abnormal (test code = 67712-8) [facility] / [id number] 11:17:25 Test Item Value Reference Range Interpretation Comments PROTIME PATIENT (test See_Comment [Auto mated message] code = 5964-2) The system [employer] generated this result transmitted ref erence range: 12.0 - 1 4.7 Seconds. The re ference range was not u sed to interpret this result as normal/abnor mal. INR (test code = 6301-6) Nor mal INR <1.1; Warfarin Therap eutic range 2.0 to 3. 0 or 2.5 to 3.5, dep ending upon the indica tions. Lab Interpretation (test Normal code = 27570-7) [facility] GLUCOSE (AUTOMATED)2021-05-20 01:38:05 Test Item Value Reference Range Interpretation Comments POCT GLU (test code = 5175862502) 181 mg/dL 70-110 H Lab Interpretation (test code = Abnormal 72430-2) [facility] GLUCOSE (AUTOMATED)2021-05-19 23:12:33 Test Item Value Reference Range Interpretation Comments POCT GLU (test code = 7659814820) 129 mg/dL 70-110 H Lab Interpretation (test code = Abnormal 03329-2) [facility] GLUCOSE (AUTOMATED)2021-05-19 17:43:05 Test Item Value Reference Range Interpretation Comments POCT GLU (test code = 9754725972) 195 mg/dL 70-110 H Lab Interpretation (test code = Abnormal 45248-5) [facility] [id number] 16:56:37 Test Item Value Reference Range Interpretation Comments NT-proBNP (test code 855740 pg/mL See_Comment H [Autom ated = 4338529622) message] The system which generated this result transmitted reference range : <=125. The reference range was not used to interpret this result as normal/abnormal . BRANDI (test code = BRANDI) Biotin has been reported to cause a negative bias, interpret results relative to patient's use of biotin. Lab Interpretation Abnormal (test code = 30538-6) [facility] (NA, K, CL, CO2, GLUCOSE, BUN, CREATININE, CA)2021-05-19 15:16:19 Test Item Value Reference Range Interpretation Comments NA (test code = 132 mmol/L 135-145 L 0890101768) K (test code = 4.7 mmol/L 3.5-5.0 6455918680) CL (test code = 98 mmol/L 98-108 6742793844) CO2 TOTAL (test code = 24 mmol/L 23-31 4629476126) AGAP (test code = 2-16 7563271422) BUN (test code = 30 mg/dL 7-23 H 1717173986) GLUCOSE (test code = 101 mg/dL 70-110 4961513330) CREATININE (test code = 4.70 mg/dL 0.50-1.04 H 7606952350) CALCIUM (test code = 8.3 mg/dL 8.6-10.6 L 7719013850) eGFR (test code = mL/min/1.73m2 7982298340) BRANDI (test code = BRANDI) Association of [...] tests). Lab Interpretation Abnormal (test code = 12433-4) [facility])2021-05-19 14:16:27 Test Item Value Reference Range Interpretation Comments POCT GLU (test code = 9124786725) 112 mg/dL 70-110 H Lab Interpretation (test code = Abnormal 35098-8) [facility] WITH [id number] 13:09:08 Test Item Value Reference Range Interpretation [...] (test code = 51.2 fL 39.0-49.9 H 92721-3) RDW-CV (test code = 14.6 % 12.0-15.5 788-0) PLT (test code = See_Comment L [Automated 777-3) message] The sy stem which generated this result transmitted reference range : 166 - 358 10*3/ ?L. The reference r alba was not used to interpret this result as normal/abnormal . MPV (test code = 11.0 fL 9.5-12.9 56868-9) NRBC/100 WBC (test See_Comment [Automat ed code = 7370460445) message] The system which generated this result transmitted reference range : 0.0 - 10.0 /100 WBCs. The refer ence range was not u sed to interpret th is result as normal/abnormal . NRBC x10^3 (test code <0.01 See_Comment [Auto mated = 0764757887) message] The s ystem which generated this result transmitted reference range : 10*3/?L. The reference range was not used to interpret this result as normal/abnormal . GRAN MAT (NEUT) % 82.8 % (test code = 770-8) IMM GRAN % (test code 0.40 % = 6146594442) LYMPH % (test code = 7.8 % 736-9) MONO % (test code = 7.9 % 5905-5) EOS % (test code = 0.7 % 713-8) BASO % (test code = 0.4 % 706-2) GRAN MAT x10^3(ANC) 5.98 10*3/uL 1.88-7.09 (test code = 6003294501) IMM GRAN x10^3 (test 0.03 10*3/uL 0.00-0.06 code = 1005871446) LYMPH x10^3 (test code 0.56 10*3/uL 1.32-3.29 L = 731-0) MONO x10^3 (test code 0.57 10*3/uL 0.33-0.92 = 742-7) EOS x10^3 (test code = 0.05 10*3/uL 0.03-0.39 711-2) BASO x10^3 (test code 0.03 10*3/uL 0.01-0.07 = 704-7) Lab Interpretation Abnormal (test code = 44316-0) [facility] B Surface Antibody (HBsAb)2021-05-19 09:35:37 Test Item Value Reference Range Interpretation Comments HBsAB (test code = Positive 3533071684) HBsAb mIU/mL Semi-Quantitative (test code = 8722186577) BRANDI (test code = Interpretation: BRANDI) ?Hepatitis B Surface Antibody ? Negative - Patient is considered to be not immune to infection with HBV. ? ? Positive - Anti-HBs detected at greater than or equal to 12 mIU/mL. ?Patient is considered to be immune to infection with HBV. ? [facility] B Surface Antigen (HBsAg)2021-05-19 09:17:53 Test Item Value Reference Range Interpretation Comments HBsAg Semi-Quantitative (test code = Negative Negative 5195-3) [facility] GLUCOSE (AUTOMATED)2021-05-19 03:13:02 Test Item Value Reference Range Interpretation Comments POCT GLU (test code = 0913368196) 110 mg/dL 70-110 Lab Interpretation (test code = Normal 21421-8) [facility] GLUCOSE (AUTOMATED)2021-05-18 23:00:40 Test Item Value Reference Range Interpretation Comments POCT GLU (test code = 8336836645) 177 mg/dL 70-110 H Lab Interpretation (test code = Abnormal 20114-4) [facility] GLUCOSE (AUTOMATED)2021-05-18 17:50:50 Test Item Value Reference Range Interpretation Comments POCT GLU (test code = 3372816907) 179 mg/dL 70-110 H Lab Interpretation (test code = Abnormal 06405-2) [facility] GLUCOSE (AUTOMATED)2021-05-18 17:26:29 Test Item Value Reference Range Interpretation Comments POCT GLU (test code = 9917555757) 171 mg/dL 70-110 H Lab Interpretation (test code = Abnormal 34749-5) [facility] METABOLIC PANEL (NA, K, CL, CO2, GLUCOSE, BUN, CREATININE, CA)2021-05-18 15:43:01 Test Item Value Reference Range Interpretation Comments NA (test code = 128 mmol/L 135-145 L 8345652974) K (test code = 5.5 mmol/L 3.5-5.0 H 9752933632) CL (test code = 94 mmol/L 98-108 L 8901419463) CO2 TOTAL (test code = 24 mmol/L 23-31 0826437630) AGAP (test code = 2-16 4217327011) BUN (test code = 56 mg/dL 7-23 H 6388738159) GLUCOSE (test code = 130 mg/dL 70-110 H 8919370862) CREATININE (test code = 7.52 mg/dL 0.50-1.04 H 6494178582) CALCIUM (test code = 7.8 mg/dL 8.6-10.6 L 1618592453) eGFR (test code = mL/min/1.73m2 5406920028) BRANDI (test code = BRANDI) Association of [...] tests). Lab Interpretation Abnormal (test code = 07472-4) [facility] GLUCOSE (AUTOMATED)2021-05-18 13:33:12 Test Item Value Reference Range Interpretation Comments POCT GLU (test code = 6167001442) 129 mg/dL 70-110 H Lab Interpretation (test code = Abnormal 72958-6) [facility] GLUCOSE (AUTOMATED)2021-05-17 22:57:15 Test Item Value Reference Range Interpretation Comments POCT GLU (test code = 8400114282) 215 mg/dL 70-110 H Lab Interpretation (test code = Abnormal 68734-1) [facility]2021-05-17 18:02:09 Test Item Value Reference Range Interpretation Comments LVOT diameter (test code 2.00 cm = 3644881238) MV Peak E [place] (test code 134.0 cm/s = 8784861364) MV Peak A [place] (test code 54.2 cm/s = 1211784274) E/A ratio (test code = ratio 6065955823) E wave decelartion time 0.22 s (test code = 8624277946) LA size (test code = 5.4 cm 4814450380) MV stenosis pressure 1/2 65.0 ms time (test code = 4091774823) MV dec slope (test code 604.00 cm/s2 = 9501178144) Ao root annulus (test 2.7 cm code = 1003469665) Ao root diam (test code 2.70 cm = 1170213022) Aortic root (test code = 2.7 cm 7761891466) LVIDD (test code = 5.10 cm 9708498481) IVS (test code = 1.06 cm 1969520491) Interventricular Septum 1.06 cm Diastolic Thickness by 2D (test code = 1752920) LVPWD (test code = 1.00 cm 8523161922) PW (test code = 1.00 cm 0.6-1.1 9851926113) LVIDS (test code = 3.70 cm 5826097086) FS (test code = 27 % 7960788387) EF(Teich) (test code = 52.60 % 3563934295) EF - 2D (test code = 52.60 % 96062933) MR max PG (test code = 123.90 mm[Hg] 5237497738) MR max marietta (test code = 556.50 cm/s 8409675882) Mr max marietta (test code = 556.5 m/s 3276749432) LAV(MOD-sp4) (test code 46.70 mL = 2738450418) LA Volume Index (BP) 29.2 mL/m2 (test code = 9834524247) LA volume (BP) (test 51.8 mL code = 3161540159) LAV(MOD-sp2) (test code 52.40 mL = 0956139568) Aortic valve mean 105.0 cm/s velocity (test code = 3627882874) Ao peak marietta (test code = 160.0 cm/s 7642652469) Ao VTI (test code = 30.0 cm 2850340637) Ao max PG (test code = 10.20 mm[Hg] 2960918065) AV peak gradient (test mmHg code = 7448524033) AV mean gradient (test mmHg code = 8663916886) LVOT stroke volume (test 63.60 cm3 code = 7215240581) LVOT peak marietta (test code 108.3 cm/s = 3334902051) LVOT mn grad (test code mmHg = 7711577127) AV LVOT peak gradient mmHg (test code = 1509234716) LVOT peak VTI (test code 20.2 cm = 4561871987) AV area by cont VTI 2.1 cm2 (test code = 9012549570) AV area peak marietta (test 2.1 cm2 code = 0369266605) LV V1 mean (test code = 66.80 cm/s 8337196695) AV valve area (test code 2.12 cm2 = 7199824771) TR Peak [place] (test code = 342.9 cm/s 3942129735) Triscuspid Valve mmHg Regurgitation Peak Gradient (test code = 6215743521) PV REGURGITATION PEAK mmHg GRADIENT (test code = 1554047745) PI dec slope (test code 438.00 cm/s2 = 8971115384) Pulmonic Regurgitant End 105.3 cm/s Max Velocity (test code = 4211590143) Inferior Vena Cava 2.33 cm Diameter (test code = 4176403090) MV Prop V (test code = 37.50 cm/s 1231439223) Radiology Study observation (narrative) (test code = 94269-1) ADD (test code = ADD) Addendum by Brenda Fuentes MD on 05/17/2021 3: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 ?Left?Ventricle: Low normal systolic function with [...] Interpretation Comments POCT GLU (test code = 7852731228) 134 mg/dL 70-110 H Lab Interpretation (test code = Abnormal 47922-9) [facility] GLUCOSE (AUTOMATED)2021-05-17 14:18:37 Test Item Value Reference Range Interpretation Comments POCT GLU (test code = 1038351781) 119 mg/dL 70-110 H Lab Interpretation (test code = Abnormal 43903-8) [facility]MINAL [id number]-[id number] 11:21:13 Test Item Value Reference Range Interpretation Comments NT-proBNP (test code 313962 pg/mL See_Comment H [Autom ated = 6260548006) message] The system which generated this result transmitted reference range : <=125. The reference range was not used to interpret this result as normal/abnormal . BRANDI (test code = BRANDI) Biotin has been reported to cause a negative bias, interpret results relative to patient's use of biotin. Lab Interpretation Abnormal (test code = 22893-2) [facility] WITHOUT [id number] 11:09:22 Test Item Value Reference Range Interpretation Comments WBC (test code = 6690-2) See_Comment [A utomated message] The system [employer] generated this result transmit levi reference range : 4.30 - 11.10 10*3/?L. The reference range was not used to interpret this result as normal/abnormal . RBC (test code = 789-8) See_Comment L [Au tomated message] The system [employer] generated this result transmit levi reference range [...] See_Comment L [Au tomated message] The system [facility] generated this result transmit levi reference range : 166 - 358 10*3/?L. The reference range was not used to interpret this result as normal/abnormal . MPV (test code = 11.1 fL 9.5-12.9 61396-1) RDW-CV (test code = 14.5 % 12.0-15.5 788-0) RDW-SD (test code = 50.8 fL 39.0-49.9 H 75887-1) NRBC x10^3 (test code = <0.01 See_Comment [Au tomated message] 1215508860) The system [facility] generated this result transmit levi reference range : 10*3/?L. The reference range was not used to interpret this result as normal/abnormal . NRBC/100 WBC (test code See_Comment [Au tomated message] = 6180138654) The system [facility] generated this result transmit levi reference range : 0.0 - 10.0 /100 WBC s. The reference r alba was not used to interpret this result as normal/abnormal . IPF % (test code = 9308675681) Lab Interpretation (test Abnormal code = 65796-8) [facility] Test Item Value Reference Range Interpretation Comments MAGNESIUM (test code = 0303181065) 2.1 mg/dL 1.7-2.4 Lab Interpretation (test code = Normal 46179-7) [facility] METABOLIC PANEL (NA, K, CL, CO2, GLUCOSE, BUN, CREATININE, CA)2021-05-17 10:56:22 Test Item Value Reference Range Interpretation Comments NA (test code = 130 mmol/L 135-145 L 7000195232) K (test code = 4.6 mmol/L 3.5-5.0 5996187081) CL (test code = 96 mmol/L 98-108 L 9867522046) CO2 TOTAL (test code = 26 mmol/L 23-31 2336567927) AGAP (test code = 2-16 2070042016) BUN (test code = 42 mg/dL 7-23 H 1319117122) GLUCOSE (test code = 148 mg/dL 70-110 H 4002530391) CREATININE (test code = 5.84 mg/dL 0.50-1.04 H 6754839326) CALCIUM (test code = 7.9 mg/dL 8.6-10.6 L 7316339898) eGFR (test code = mL/min/1.73m2 0387204729) BRANDI (test code = BRANDI) Association of [...] tests). Lab Interpretation Abnormal (test code = 34232-4) [facility] CampusPHOSPHORUS2022-02-13 10:56:02 Test Item Value Reference Range Interpretation Comments PHOSPHORUS (test code = 8333632545) 5.8 mg/dL 2.5-5.0 H Lab Interpretation (test code = Abnormal 74308-7) [facility] GLUCOSE (AUTOMATED)2021-05-16 22:43:07 Test Item Value Reference Range Interpretation Comments POCT GLU (test code = 4972454301) 231 mg/dL 70-110 H Lab Interpretation (test code = Abnormal 47171-5) [facility] GLUCOSE (AUTOMATED)2021-05-16 17:43:53 Test Item Value Reference Range Interpretation Comments POCT GLU (test code = 6545833261) 154 mg/dL 70-110 H Lab Interpretation (test code = Abnormal 88715-2) [facility] GLUCOSE (AUTOMATED)2021-05-16 13:42:36 Test Item Value Reference Range Interpretation Comments POCT GLU (test code = 6521873102) 121 mg/dL 70-110 H Lab Interpretation (test code = Abnormal 18219-4) [facility] CampusCB WITHOUT [id number] 09:48:31 Test Item Value Reference Range Interpretation Comments WBC (test code = 6690-2) See_Comment [A utomated message] The system [employer] generated this result transmit levi reference range : 4.30 - 11.10 10*3/?L. The reference range was not used to interpret this result as normal/abnormal . RBC (test code = 789-8) See_Comment L [Au tomated message] The system [employer] generated this result transmit levi reference range [...] See_Comment L [Au tomated message] The system [facility] generated this result transmit levi reference range : 166 - 358 10*3/?L. The reference range was not used to interpret this result as normal/abnormal . MPV (test code = 10.9 fL 9.5-12.9 74508-4) RDW-CV (test code = 15.0 % 12.0-15.5 788-0) RDW-SD (test code = 52.6 fL 39.0-49.9 H 24067-1) NRBC x10^3 (test code = <0.01 See_Comment [Au tomated message] 0739003465) The system [employer] generated this result transmit levi reference range : 10*3/?L. The reference range was not used to interpret this result as normal/abnormal . NRBC/100 WBC (test code See_Comment [Au tomated message] = 1881713633) The system [facility] generated this result transmit levi reference range : 0.0 - 10.0 /100 WBC s. The reference r alba was not used to interpret this result as normal/abnormal . IPF % (test code = 4943792679) Lab Interpretation (test Abnormal code = 80297-9) [facility] (Total Cholesterol, Triglycerides, HDL)2021-05-16 09:36:18 Test Item Value Reference Range Interpretation Comments CHOL (test code = 157 mg/dL 120-200 5523581494) HDL (test code = 26 mg/dL >50 L 3901531340) HDLC RATIO (test code = See_Comment H [Au tomated message] 5390245717) The system [facility] [employer] generated this result transmit levi reference range : <=4.5. The refe rence range was not u sed to interpret th is result as normal/abnormal . TRIG (test code = 146 mg/dL 30-170 0849807644) LDL CHOL (test code = 102 mg/dL See_Comment [Auto mated message] 21218-0) The system [employer] generated this result transmit levi reference range : <=160. The refe rence range was not u sed to interpret th is result as normal/abnormal . VLDL (test code = 29 mg/dL 5-60 6262967256) Lab Interpretation (test Abnormal code = 08778-1) [facility] CampusGlycosylated Hemoglobin (A1C)2021-05-16 09:22:50 Test Item Value Reference Range Interpretation Comments HGB A1C (test code = 6.2 % 4.0-5.7 H 4548-4) BRANDI (test code = BRANDI) Reference RangesNormal: <5.7%Prediabetes: 5.7 - 6.4%Diabetes: > 6.5% Lab Interpretation (test Abnormal code = 90643-0) [facility] CampusTroponin [id number] 09:19:18 Test Item Value Reference Interpretation Comments Range TROPONIN I (test 0.028 ng/mL See_Comment [Automated code = 2865823159) message] The system which generated this result [...] biotin. Lab Interpretation Normal (test code = 57136-6) [facility] Metabolic Panel (NA, K, CL, CO2, GLUCOSE, BUN, CREATININE, CA)2021-05-16 09:08:35 Test Item Value Reference Range Interpretation Comments NA (test code = 134 mmol/L 135-145 L 6639081397) K (test code = 4.3 mmol/L 3.5-5.0 8958940705) CL (test code = 98 mmol/L 98-108 0308204320) CO2 TOTAL (test code = 27 mmol/L 23-31 7909638447) AGAP (test code = 2-16 0766050398) BUN (test code = 28 mg/dL 7-23 H 9587887514) GLUCOSE (test code = 114 mg/dL 70-110 H 4006579987) CREATININE (test code = 4.79 mg/dL 0.50-1.04 H 3453221808) CALCIUM (test code = 8.2 mg/dL 8.6-10.6 L 8969195911) eGFR (test code = mL/min/1.73m2 2728085489) BRANDI (test code = BRANDI) Association of [...] tests). Lab Interpretation Abnormal (test code = 47017-9) [facility] CampusMagnesium Yasvu2607-57-14 09:08:35 Test Item Value Reference Range Interpretation Comments MAGNESIUM (test code = 4689352877) 2.2 mg/dL 1.7-2.4 Lab Interpretation (test code = Normal 57219-8) [facility] CampusTroponin [id number] 03:08:26 Test Item Value Reference Interpretation Comments Range TROPONIN I (test 0.019 ng/mL See_Comment [Automated code = 8191228979) message] The system which generated this result [...] biotin. Lab Interpretation Normal (test code = 28349-6) [facility] CampusPhosphorus Jyglu2993-00-16 02:56:02 Test Item Value Reference Range Interpretation Comments PHOSPHORUS (test code = 8331764984) 4.5 mg/dL 2.5-5.0 Lab Interpretation (test code = Normal 45991-2) [facility] CampusPOCT GLUCOSE (AUTOMATED)2021-05-16 02:28:15 Test Item Value Reference Range Interpretation Comments POCT GLU (test code = 0792746581) 155 mg/dL 70-110 H Lab Interpretation (test code = Abnormal 86826-6) [facility] CampusThyroid Stimulating Hormone (TSH)2021-05-16 01:56:53 Test Item Value Reference Range Interpretation Comments TSH (test code = See_Comment [Automated message] 8694204872) The system [employer] generated this result transmitted ref erence range: 0.45 - 4 .70 mIU/L. The refe rence range was not u sed to interpret this result as normal/abnor mal. Lab Interpretation (test Normal code = 09619-6) [facility] CampusGlycosylated Hemoglobin (A1C)2021-05-16 01:17:48 Test Item Value Reference Range Interpretation Comments HGB A1C (test code = 6.3 % 4.0-5.7 H 4548-4) BRANDI (test code = BARNDI) Reference RangesNormal: <5.7%Prediabetes: 5.7 - 6.4%Diabetes: > 6.5% Lab Interpretation (test Abnormal code = 08156-3) [facility] CampusN-TERMINAL [id number] 20:42:55 Test Item Value Reference Range Interpretation Comments NT-proBNP (test code 327326 pg/mL See_Comment H [Autom ated = 1462304020) message] The system which generated this result transmitted reference range : <=125. The reference range was not used to interpret this result as normal/abnormal . BRANDI (test code = BRANDI) Biotin has been reported to cause a negative bias, interpret results relative to patient's use of biotin. Lab Interpretation Abnormal (test code = 07722-4) [facility] CampusTROPONIN [id number] 20:28:40 Test Item Value Reference Interpretation Comments Range TROPONIN I (test 0.012 ng/mL See_Comment [Automated code = 6693125455) message] The system which generated this result [...] biotin. Lab Interpretation Normal (test code = 37443-4) [facility] CampusD-[id number] 20:27:34 Test Item Value Reference Interpretation Comments Range D-DIMER (test code = See_Comment H [Autom ated 6469731508) message] The system which generated this result [...] diagnosis. Lab Interpretation Abnormal (test code = 02738-7) [facility] CampusMAGNESIUM2022-02-11 20:17:56 Test Item Value Reference Range Interpretation Comments MAGNESIUM (test code = 4928600109) 1.9 mg/dL 1.7-2.4 Lab Interpretation (test code = Normal 32663-9) [facility] CampusCOMP. METABOLIC PANEL (60032)2021-05-15 20:17:36 Test Item Value Reference Range Interpretation Comments NA (test code = 136 mmol/L 135-145 5789421908) K (test code = 4.2 mmol/L 3.5-5.0 5638602608) CL (test code = 99 mmol/L 98-108 4618027198) CO2 TOTAL (test code = 26 mmol/L 23-31 8163115057) AGAP (test code = 2-16 0880155826) BUN (test code = 24 mg/dL 7-23 H 1464570944) GLUCOSE (test code = 112 mg/dL 70-110 H 7189837000) CREATININE (test code = 3.82 mg/dL 0.50-1.04 H 6428123151) TOTAL BILI (test code = 1.0 mg/dL 0.1-1.8 4008559299) CALCIUM (test code = 8.5 mg/dL 8.6-10.6 L 9792941665) T PROTEIN (test code = 8.6 g/dL 6.3-8.2 H 5935701774) ALBUMIN (test code = 4.2 g/dL 3.5-5.0 4406172617) ALK PHOS (test code = 176 U/L 34-122 H 3359276176) ALTv (test code = 13 U/L 5-35 1742-6) AST(SGOT) (test code = 26 U/L 13-40 7305627952) eGFR (test code = mL/min/1.73m2 9196761794) BRANDI (test code = BRANDI) Association of [...] tests). Lab Interpretation Abnormal (test code = 35479-5) [facility] CampusLIPASE2022-02-11 20:17:15 Test Item Value Reference Range Interpretation Comments LIPASE (test code = 2635566942) 125 U/L 0-220 Lab Interpretation (test code = Normal 01474-6) [facility] CampusPROTHROMBIN TIME / [id number] 20:02:29 Test Item Value Reference Range Interpretation [...] tions. Lab Interpretation (test Normal code = 73218-0) [facility] CampusCB WITH [id number] 19:52:47 Test Item Value Reference Range Interpretation [...] (test code = 52.6 fL 39.0-49.9 H 83620-3) RDW-CV (test code = 15.0 % 12.0-15.5 788-0) PLT (test code = See_Comment L [Automated 777-3) message] The sy stem which generated this result transmitted reference range : 166 - 358 10*3/ ?L. The reference r alba was not used to interpret this result as normal/abnormal . MPV (test code = 10.9 fL 9.5-12.9 73790-2) NRBC/100 WBC (test See_Comment [Automat ed code = 3871012553) message] The system which generated this result transmitted reference range : 0.0 - 10.0 /100 WBCs. The refer ence range was not u sed to interpret th is result as normal/abnormal . NRBC x10^3 (test code <0.01 See_Comment [Auto mated = 5698100699) message] The s ystem which generated this result transmitted reference range : 10*3/?L. The reference range was not used to interpret this result as normal/abnormal . GRAN MAT (NEUT) % 74.8 % (test code = 770-8) IMM GRAN % (test code 0.60 % = 7167629158) LYMPH % (test code = 12.4 % 736-9) MONO % (test code = 8.7 % 5905-5) EOS % (test code = 2.6 % 713-8) BASO % (test code = 0.9 % 706-2) GRAN MAT x10^3(ANC) 4.06 10*3/uL 1.88-7.09 (test code = 5227139934) IMM GRAN x10^3 (test 0.03 10*3/uL 0.00-0.06 code = 2698918175) LYMPH x10^3 (test code 0.67 10*3/uL 1.32-3.29 L = 731-0) MONO x10^3 (test code 0.47 10*3/uL 0.33-0.92 = 742-7) EOS x10^3 (test code = 0.14 10*3/uL 0.03-0.39 711-2) BASO x10^3 (test code 0.05 10*3/uL 0.01-0.07 = 704-7) Lab Interpretation Abnormal (test code = 53937-4) [facility].cardiac [Mass/volume] in Serum or Jdzgiu3085-86-98 17:30:00 Test Item Value Reference Range Interpretation Comments Troponin I.cardiac 0.35 See_Comment [Automat ed message] The [Mass/volume] in Serum syste m which generated or Plasma (test code = this result transmitted Troponin I.cardiac reference range: <=0.045. [Mass/volume] in Serum The r eference range was or Plasma) not used to int erpret this result as normal/abnormal . [facility] HermannAbsolute lymphocyte qtbvk0361-66-65 11:37:00 Test Item Value Reference Range Interpretation Comments Absolute lymphocyte count (test code = 0.7 0.7-4.9 Absolute lymphocyte count) [facility] HermannBasophil %2019-02-18 11:37:00 Test Item Value Reference Range Interpretation Comments Basophil % (test code = 2.4 See_Comment [Au tomated message] The Basophil %) system which ge nerated this result tra nsmitted reference range : <=1.3. The reference r alba was not used to int erpret this result as normal/abnormal . [facility] HermannBlood anisocytosis dtlsfijxg1441-05-66 11:37:00 Test Item Value Reference Range Interpretation Comments Blood anisocytosis detection (test code 2+ = Blood anisocytosis detection) [facility] MalloryannBlood erythrocytes count (number/volume)2019-02-18 11:37:00 Test Item Value Reference Range Interpretation Comments Blood erythrocytes count 3.34 3.86-4.86 (number/volume) (test code = Blood erythrocytes count (number/volume)) [facility] MalloryannBlood hematocrit (volume fraction)2019-02-18 11:37:00 Test Item Value Reference Range Interpretation Comments Blood hematocrit (volume fraction) 31.8 36.0-45.0 (test code = Blood hematocrit (volume fraction)) [facility] morphology interpretation bsbxsiytm0246-72-55 11:37:00 Test Item Value Reference Range Interpretation Comments Blood morphology interpretation Noted narrative (test code = Blood morphology interpretation narrative) [facility]annBlood platelet mean puygao8286-69-16 11:37:00 Test Item Value Reference Range Interpretation Comments Blood platelet mean volume (test code = 9.8 7.6-11.3 Blood platelet mean volume) [facility]annBlood poikilocytosis detection by light lztaahtqar8245-72-01 11:37:00 Test Item Value Reference Range Interpretation Comments Blood poikilocytosis detection by light 1+ microscopy (test code = Blood poikilocytosis detection by light microscopy) [facility]annCalcium [Mass/volume] in Serum or Tngifj3878-08-56 11:37:00 Test Item Value Reference Range Interpretation [...] [Moles/volume] in Serum or Plasma) [facility]annChemistry dqqhjgpqr2401-95-41 11:37:00 Test Item Value Reference Range Interpretation Comments Chemistry procedure (test code = 95.3 80-100 Chemistry procedure) [facility]annChloride [Moles/volume] in Serum or Jimvdw0409-16-82 11:37:00 Test Item Value Reference Range Interpretation Comments Chloride [Moles/volume] in Serum or 98 98-107 Plasma (test code = Chloride [Moles/volume] in Serum or Plasma) [facility]annCreatinine [Mass/volume] in Serum or Nxgbsk8782-70-91 11:37:00 Test Item Value Reference Range Interpretation Comments Creatinine [Mass/volume] in Serum or 7.35 0.55-1.3 Plasma (test code = Creatinine [Mass/volume] in Serum or Plasma) [facility]annGlucose [Mass/volume] in Serum or Mqliyj3541-43-26 11:37:00 Test Item Value Reference Range Interpretation Comments Glucose [Mass/volume] in Serum or 110 74-106 Plasma (test code = Glucose [Mass/volume] in Serum or Plasma) [facility]annMagnesium [Mass/volume] in Serum or Rsukzv6138-53-03 11:37:00 Test Item Value Reference Range Interpretation Comments Magnesium [Mass/volume] in Serum or 2.4 1.8-2.4 Plasma (test code = Magnesium [Mass/volume] in Serum or Plasma) [facility] [Mass/volume] in Serum or [id number] 11:37:00 Test Item Value Reference Range Interpretation Comments Phosphate [Mass/volume] in Serum or 4.7 2.5-4.9 Plasma (test code = Phosphate [Mass/volume] in Serum or Plasma) [facility]Potassium [Moles/volume] in Serum or [id number] 11:37:00 Test Item Value Reference Range Interpretation [...] [facility] nitrogen [Mass/volume] in Serum or [id number] 11:37:00 Test Item Value Reference Range Interpretation Comments Urea nitrogen [Mass/volume] in Serum or 74 7-18 Plasma (test code = Urea nitrogen [Mass/volume] in Serum or Plasma) [facility]Urine dipstick testing at ijbav-tt-xxyx9995-11-17 11:37:00 Test Item Value Reference Range Interpretation Comments Urine dipstick testing at dkfpf-yl-vnkn 2.6 4.3-10.9 (test code = Urine dipstick testing at qerbm-tm-fdiu) [facility]Alanine aminotransferase [Enzymatic activity/volume] in Serum or Plasma by With P-5'-2019-02-18 00:35:00 Test Item Value Reference Range Interpretation Comments Alanine aminotransferase [Enzymatic 64 12-78 activity/volume] in Serum or Plasma by With P-5'- (test code = Alanine aminotransferase [Enzymatic activity/volume] in Serum or Plasma by With P-5'-) [facility]Albumin [Mass/volume] in Serum or Plasma by Bromocresol purple (BCP) dye binding [id number] 00:35:00 Test Item Value Reference Range Interpretation Comments Albumin [Mass/volume] in Serum or 3.6 3.4-5.0 Plasma by Bromocresol purple (BCP) dye binding meth (test code = Albumin [Mass/volume] in Serum or Plasma by Bromocresol purple (BCP) dye binding meth) [facility]Alkaline phosphatase [Enzymatic activity/volume] in Serum or [id number] 00:35:00 Test Item Value Reference Range Interpretation Comments Alkaline phosphatase [Enzymatic 236 45-117 activity/volume] in Serum or Plasma (test code = Alkaline phosphatase [Enzymatic activity/volume] in Serum or Plasma) [facility]Aspartate aminotransferase [Enzymatic activity/volume] in Serum or Plasma by With [id number] 00:35:00 Test Item Value Reference Range Interpretation Comments Aspartate aminotransferase [Enzymatic 48 15-37 activity/volume] in Serum or Plasma by With P-5 (test code = Aspartate aminotransferase [Enzymatic activity/volume] in Serum or Plasma by With P-5) [facility]Bilirubin.direct [Mass/volume] in Serum or [id number] 00:35:00 Test Item Value Reference Range Interpretation Comments Bilirubin.direct 0.2 See_Comment [Automated message] The [Mass/volume] in Serum syste m which generated or Plasma (test code = this result transmitted Bilirubin.direct reference r alba: <=0.2. [Mass/volume] in Serum The r eference range was or Plasma) not used to int erpret this result as emilee l/abnormal. [facility]annBilirubin.total [Mass/volume] in Serum or [id number] 00:35:00 Test Item Value Reference Range Interpretation Comments Bilirubin.total [Mass/volume] in Serum 0.6 0.2-1.0 or Plasma (test code = Bilirubin.total [Mass/volume] in Serum or Plasma) [facility]INR in Blood by Coagulation [id number] 00:35:00 Test Item Value Reference Range Interpretation Comments INR in Blood by Coagulation assay 1.15 1 (test code = INR in Blood by Coagulation assay) [facility]annNatriuretic peptide.B prohormone N-Terminal [Mass/volume] in Serum or [id number] 00:35:00 Test Item Value Reference Range Interpretation Comments Natriuretic peptide.B prohormone > [id number] N-Terminal [Mass/volume] in Serum or Plasma (test code = Natriuretic peptide.B prohormone N-Terminal [Mass/volume] in Serum or Plasma) [facility]annProtein [Mass/volume] in Serum or [id number] 00:35:00 Test Item Value Reference Range Interpretation Comments Protein [Mass/volume] in Serum or 8.0 6.4-8.2 Plasma (test code = Protein [Mass/volume] in Serum or Plasma) [facility] HermannTroponin I.cardiac [Mass/volume] in Serum or [id number] 00:35:00 Test Item Value Reference Range Interpretation Comments Troponin I.cardiac 0.32 See_Comment [Automat ed message] The [Mass/volume] in Serum syste m which generated or Plasma (test code = this result transmitted Troponin I.cardiac reference range: <=0.045. [Mass/volume] in Serum The r eference range was or Plasma) not used to int erpret this result as normal/abnormal . [facility] HermannSerum or plasma sodium measurement (moles/volume)2019-01-26 04:05:00 Test Item Value Reference Range Interpretation Comments Serum or plasma sodium measurement 136 136-145 (moles/volume) (test code = Serum or plasma sodium measurement (moles/volume)) [facility] [Mass/volume] in Serum or [id number] 04:05:00 Test Item Value Reference Range Interpretation Comments Urea nitrogen [Mass/volume] in Serum or 52 7-18 Plasma (test code = Urea nitrogen [Mass/volume] in Serum or Plasma) [facility] at ckctf-wo-kmhe7781-10-25 04:05:00 Test Item Value Reference Range Interpretation Comments Urine dipstick testing at vtlzi-mo-ohyc 3.4 4.3-10.9 (test code = Urine dipstick testing at dbsbt-xh-ifka) [facility] HermannAbsolute lymphocyte [id number] 04:05:00 Test Item Value Reference Range Interpretation Comments Absolute lymphocyte count (test code = 0.6 0.7-4.9 Absolute lymphocyte count) [facility]Bas[facility] %2019-01-26 04:05:00 Test Item Value Reference Range Interpretation Comments Basophil % (test code = 1.5 See_Comment [Au tomated message] The Basophil %) system which ge nerated this result tra nsmitted reference range : <=1.3. The reference r alba was not used to int erpret this result as normal/abnormal . [facility]annBlood erythrocytes count (number/volume)2019-01-26 04:05:00 Test Item Value Reference Range Interpretation Comments Blood erythrocytes count 3.64 3.86-4.86 (number/volume) (test code = Blood erythrocytes count (number/volume)) [facility]annBlood hematocrit (volume fraction)2019-01-26 04:05:00 Test Item Value Reference Range Interpretation Comments Blood hematocrit (volume fraction) 35.7 36.0-45.0 (test code = Blood hematocrit (volume fraction)) [facility]annBlood morphology interpretation [id number] 04:05:00 Test Item Value Reference Range Interpretation Comments Blood morphology interpretation Not seen narrative (test code = Blood morphology interpretation narrative) [facility]Blood platelet mean [id number] 04:05:00 Test Item Value Reference Range Interpretation Comments Blood platelet mean volume (test code = 9.2 7.6-11.3 Blood platelet mean volume) [facility]annCalcium [Mass/volume] in Serum or Dqqujv8027-47-08 04:05:00 Test Item Value Reference Range Interpretation [...] [Moles/volume] in Serum or Plasma) [facility]annChemistry lssaojzeo2038-19-82 04:05:00 Test Item Value Reference Range Interpretation Comments Chemistry procedure (test code = 98.1 80-100 Chemistry procedure) [facility]annChloride [Moles/volume] in Serum or [id number] 04:05:00 Test Item Value Reference Range Interpretation Comments Chloride [Moles/volume] in Serum or 98 98-107 Plasma (test code = Chloride [Moles/volume] in Serum or Plasma) [facility]annCreatinine [Mass/volume] in Serum or [id number] 04:05:00 Test Item Value Reference Range Interpretation Comments Creatinine [Mass/volume] in Serum or 6.36 0.55-1.3 Plasma (test code = Creatinine [Mass/volume] in Serum or Plasma) [facility]annGlucose [Mass/volume] in Serum or [id number] 04:05:00 Test Item Value Reference Range Interpretation Comments Glucose [Mass/volume] in Serum or 251 74-106 Plasma (test code = Glucose [Mass/volume] in Serum or Plasma) [facility]Potassium [Moles/volume] in Serum or [id number] 04:05:00 Test Item Value Reference Range Interpretation Comments Potassium [Moles/volume] in Serum or 4.7 3.5-5.1 Plasma (test code = Potassium [Moles/volume] in Serum or Plasma) [facility] CenterannBacterial culture w [id number] 01:55:00 Test Item Value Reference Range Interpretation Comments Bacterial culture w ID NORMAL UPPER (test code = Bacterial RESPIRATORY HARI culture w ID) GROWN. [facility] [id number] 16:07:00 Test Item Value Reference Range Interpretation Comments Bedside Glucose (test code = Bedside 175 65-120 Glucose) [facility] [id number] 05:35:00 Test Item Value Reference Range Interpretation Comments Blood Morphology Blood Morphology Comment (test code = Comment Blood Morphology Comment) [facility] [id number] 05:35:00 Test Item Value Reference Range Interpretation Comments Total Bilirubin (test code = Total 0.5 0.2-1.0 Bilirubin) [facility] [id number] 05:35:00 Test Item Value Reference Range Interpretation Comments Sodium Level (test code = Sodium Level) 137 136-145 [facility] [id number] 05:35:00 Test Item Value Reference Range Interpretation Comments Serum Total Protein (test code = Serum 7.5 6.4-8.2 Total Protein) [facility] Qydhrch2422-01-44 05:35:00 Test Item Value Reference Range Interpretation Comments Potassium Level (test code = Potassium 4.8 3.5-5.1 Level) [facility] [id number] 05:35:00 Test Item Value Reference Range Interpretation Comments Glucose Level (test code = Glucose 90 74-106 Level) [facility] [id number] 05:35:00 Test Item Value Reference Range Interpretation Comments Globulin (test code = Globulin) 4.3 2.3-3.5 [facility] [id number] 05:35:00 Test Item Value Reference Range Interpretation Comments Estimat Glomerular 7 See_Comment [Automat ed message] The Filtration Rate (test system which generated code = Estimat this result t ransmitted Glomerular Filtration refere nce range: >=90. Rate) The reference r alba was not used to int erpret this result as normal/abnormal . [facility] [id number] 05:35:00 Test Item Value Reference Range Interpretation Comments Creatinine (test code = Creatinine) 6.02 0.55-1.3 [facility]2019-07-10 05:35:00 Test Item Value Reference Range Interpretation Comments Chloride Level (test code = Chloride 102 98-107 Level) [facility]2019-07-10 05:35:00 Test Item Value Reference Range Interpretation Comments Carbon Dioxide Level (test code = 25 21-32 Carbon Dioxide Level) [facility]2019-07-10 05:35:00 Test Item Value Reference Range Interpretation Comments Calcium Level (test code = Calcium 8.1 8.5-10.1 Level) [facility]2019-07-10 05:35:00 Test Item Value Reference Range Interpretation Comments Blood Urea Nitrogen (test code = Blood 43 7-18 Urea Nitrogen) [facility]2019-07-10 05:35:00 Test Item Value Reference Range Interpretation Comments Aspartate Amino Transf (AST/SGOT) (test 36 15-37 code = Aspartate Amino Transf (AST/SGOT)) [facility]2019-07-10 05:35:00 Test Item Value Reference Range Interpretation Comments Alkaline Phosphatase (test code = 252 45-117 Alkaline Phosphatase) [facility]2019-07-10 05:35:00 Test Item Value Reference Range Interpretation Comments Albumin/Globulin Ratio (test code = 0.7 1 1.1-1.8 Albumin/Globulin Ratio) [facility] [id number] 05:35:00 Test Item Value Reference Range Interpretation Comments Albumin (test code = Albumin) 3.2 3.4-5.0 [facility]2019-07-10 05:35:00 Test Item Value Reference Range Interpretation Comments Alanine Aminotransferase (ALT/SGPT) 57 12-78 (test code = Alanine Aminotransferase (ALT/SGPT)) [facility]2019-07-10 05:35:00 Test Item Value Reference Range Interpretation Comments White Blood Count (test code = White 2.9 4.3-10.9 Blood Count) [facility]2019-07-10 05:35:00 Test Item Value Reference Range Interpretation Comments Red Cell Distribution Width (test code 17.2 12.1-15.2 = Red Cell Distribution Width) [facility]2019-07-10 05:35:00 Test Item Value Reference Range Interpretation Comments Red Blood Count (test code = Red Blood 3.49 3.86-4.86 Count) [facility]2019-07-10 05:35:00 Test Item Value Reference Range Interpretation Comments Platelet Count (test code = Platelet 116 152-406 Count) [facility]2019-07-10 05:35:00 Test Item Value Reference Range Interpretation Comments Neutrophils % (test code = Neutrophils 49.4 41.7-73.7 %) [facility]2019-07-10 05:35:00 Test Item Value Reference Range Interpretation Comments Monocytes % (test code = Monocytes %) 10.4 3.3-12.3 [facility]2019-07-10 05:35:00 Test Item Value Reference Range Interpretation Comments Mean Platelet Volume (test code = Mean 8.7 7.6-11.3 Platelet Volume) [facility]2019-07-10 05:35:00 Test Item Value Reference Range Interpretation Comments Mean Corpuscular Volume (test code = 98.2 80-100 Mean Corpuscular Volume) [facility]2019-07-10 05:35:00 Test Item Value Reference Range Interpretation Comments Mean Corpuscular Hemoglobin Concent 33.0 32.0-36.0 (test code = Mean Corpuscular Hemoglobin Concent) [facility]2019-07-10 05:35:00 Test Item Value Reference Range Interpretation Comments Mean Corpuscular Hemoglobin (test 32.4 pg 27.0-35.0 code = Mean Corpuscular Hemoglobin) [facility]2019-07-10 05:35:00 Test Item Value Reference Range Interpretation Comments Lymphocytes % (test code = Lymphocytes 30.3 15.3-44.8 %) [facility]2019-07-10 05:35:00 Test Item Value Reference Range Interpretation Comments Hemoglobin (test code = Hemoglobin) 11.3 12.0-15.0 [facility]2019-07-10 05:35:00 Test Item Value Reference Range Interpretation Comments Hematocrit (test code = Hematocrit) 34.3 36.0-45.0 [facility]2019-07-10 05:35:00 Test Item Value Reference Range Interpretation Comments Eosinophils % (test code 8.8 See_Comment [A utomated message] The = Eosinophils %) system whic h generated this result tra nsmitted reference range : <=4.4. The reference r alba was not used to int erpret this result as normal/abnormal . [facility]2019-07-10 05:35:00 Test Item Value Reference Range Interpretation Comments Basophils % (test code 1.1 See_Comment [Aut omated message] The = Basophils %) system which generated this result tra nsmitted reference range : <=1.3. The reference r alba was not used to int erpret this result as normal/abnormal . [facility]2019-07-10 05:35:00 Test Item Value Reference Range Interpretation Comments Absolute Neutrophil (test code = 1.4 1.8-8.0 Absolute Neutrophil) [facility]2019-07-10 05:35:00 Test Item Value Reference Range Interpretation Comments Absolute Monocytes (CBC) (test code = 0.3 0.1-1.3 Absolute Monocytes (CBC)) [facility]2019-07-10 05:35:00 Test Item Value Reference Range Interpretation Comments Absolute Lymphocytes (CBC) (test code = 0.9 0.7-4.9 Absolute Lymphocytes (CBC)) [facility]2019-07-10 05:35:00 Test Item Value Reference Range Interpretation Comments Absolute Eosinophils 0.3 See_Comment [Autom ated message] The (CBC) (test code = system wh ich generated Absolute Eosinophils this re sult transmitted (CBC)) reference range : <=0.5. The reference r alba was not used to int erpret this result as normal/abnormal . [facility]2019-07-10 05:35:00 Test Item Value Reference Range Interpretation Comments Absolute Basophils 0.0 See_Comment [Automat ed message] The (CBC) (test code = system wh ich generated Absolute Basophils this resu lt transmitted (CBC)) reference range : <=0.5. The reference r alba was not used to int erpret this result as normal/abnormal . [facility]2019-07-09 05:43:00 Test Item Value Reference Range Interpretation Comments Prothrombin Time (test code = 12.9 9.5-12.5 Prothrombin Time) [facility]2019-07-09 05:43:00 Test Item Value Reference Range Interpretation Comments INR International Normalized Ratio 1.10 1 (test code = INR International Normalized Ratio) [facility]2019-07-09 05:43:00 Test Item Value Reference Range Interpretation Comments Triglycerides Level (test code = 89 Triglycerides Level) [facility]2019-07-09 05:43:00 Test Item Value Reference Range Interpretation Comments Phosphorus Level (test code = 6.3 2.5-4.9 Phosphorus Level) [facility]2019-07-09 05:43:00 Test Item Value Reference Range Interpretation Comments Magnesium Level (test code = Magnesium 2.3 1.8-2.4 Level) [facility]2019-07-09 05:43:00 Test Item Value Reference Range Interpretation Comments LDL Cholesterol, Calculated (test code 47 1 = LDL Cholesterol, Calculated) [facility]2019-07-09 05:43:00 Test Item Value Reference Range Interpretation Comments HDL Cholesterol (test code = HDL 57 40-60 Cholesterol) [facility]2019-07-09 05:43:00 Test Item Value Reference Range Interpretation Comments Cholesterol/HDL Ratio (test code = 2.14 1 Cholesterol/HDL Ratio) [facility]2019-07-09 05:43:00 Test Item Value Reference Range Interpretation Comments Cholesterol Level (test code = 122 Cholesterol Level) [facility]2019-07-08 19:49:00 Test Item Value Reference Range Interpretation Comments Troponin I (test code = 0.59 See_Comment [Au tomated message] The Troponin I) system which ge nerated this result tra nsmitted reference range : <=0.045. The reference r alba was not used to int erpret this result as normal/abnormal . [facility]2019-07-08 12:50:00 Test Item Value Reference Range Interpretation Comments Hepatitis B Surface Hepatitis B Surface Antigen (test code = Antigen Hepatitis B Surface Antigen) [facility]2019-07-08 12:50:00 Test Item Value Reference Range Interpretation Comments Hepatitis B Surface Hepatitis B Surface Antibody (test code = Antibody Hepatitis B Surface Antibody) [facility]2019-07-08 12:50:00 Test Item Value Reference Range Interpretation Comments Hepatitis B Core Total Hepatitis B Core Total Antibody (test code = Antibody Hepatitis B Core Total Antibody) [facility]2019-07-08 12:50:00 Test Item Value Reference Range Interpretation Comments Hepatitis C Antibody Hepatitis C Antibody (test code = Hepatitis C Antibody) [facility]2019-07-08 12:50:00 Test Item Value Reference Range Interpretation Comments Hepatitis C Ab Signal/Cutoff Ratio 0.05 ratio (test code = Hepatitis C Ab Signal/Cutoff Ratio) [facility]2019-07-08 07:36:00 Test Item Value Reference Range Interpretation Comments Rapid Troponin I (test 0.66 See_Comment [Aut omated message] The code = Rapid Troponin system which generated I) this result tra nsmitted reference range : <=0.045. The reference r alba was not used to int erpret this result as normal/abnormal . [facility]2019-07-08 07:36:00 Test Item Value Reference Range Interpretation Comments PY-Jck-T-Type Natriuretic Peptide (test 92955 code = ZA-Krn-J-Type Natriuretic Peptide) [facility] Notes Date/Time Note Provider Source 2021-07-01 00:19:36-00:00 KRZYSZTOF RYAN [facility] OPERATIVE/PROCEDURE REPORT JAK MERRILL FACILITY: [facility] Billing #: [id number] Room: [address] [place] [address] MR #: [id number] : 1955 DATE OF PROCEDURE: 06/30/2021 SURGEON: [...] catheter sheaths were removed. No complications. QUIQUE/EVAN /[id number] 2021-06-18 18:51:18-00:00 LOGAN RUSSO [facility] OPERATIVE/PROCEDURE REPORT DESIRAEJAK FACILITY: [facility] Billing #: [id number] Room: [place] [address] MR #: [id number] : 1955 DATE OF PROCEDURE: 06/18/2021 SURGEON: [...] hemodialysis catheter, and ultrasound of femoral vein. MANAGER BRAND: Carol Parisi MD. ANESTHETIC: General endotracheal. SECOND LAUNDRY WORKER: Christopher Alvarez. Note: Dr. Parisi was required [...] Seldin gary technique and then placed a 5-Sami catheter and then up- sheath to a [...] indicated for cardiac surgical proce dures. MRM/MODL /[id number]
[2022-09-20 12:09] LABS: Potassium 4.9 mEq/L (3.5-5.1)
[2022-09-20 12:11] LABS: Troponin High Sensitivity 544.7 pg/mL (<58.9)
[2022-09-20 12:38] LABS: Protime INR 1.44
--- NOTE | 2022-09-20 12:58 | RAD REPORT ---
EXAM DESCRIPTION: Samuel Single View09/20/2022 12:06 pm CLINICAL HISTORY: Chest pain COMPARISON: July 2022 FINDINGS: Chronic loculated moderate right pleural effusion without obvious change. Right basilar atelectasis The remainder lungs appear clear of acute infiltrate. Heart remains enlarged. Pacemaker leads in place. Postsurgical changes involve chest
--- NOTE | 2022-09-20 13:26 | EDPHYS ---
Physician Documentation [facility] Name: Qiana Valdez Age: 67 yrs Sex: Female : 1955 Arrival Date: 09/20/2022 Time: 11:10 Bed 2 Private MD: ED Physician Marta Machuca HPI: 09/20 12:24 This 67 yrs old Female presents to ER via EMS with complaints of Chest Pain, sp3 Palpitations. 12:24 67-year-old female with a history of diabetes, hypertension, [place], CHF with multiple sp3 prior admissions and recent discharge 2 days ago now presents again for chest pain, palpitations and shortness of breath. She states her heart rate was sustained greater than 120 at home. She states that she is so tired that she cannot even walk without almost fainting. Chest pain is similar to her prior episodes. She denies any fever, headache, abdominal pain, back pain, rash or any other aspect of ROS at this time.. Historical: - Allergies: 11:25 No Known Allergies; kc6 - Home Meds: 13:21 metoprolol tartrate 100 mg Oral tablet [Active]; isosorbide mononitrate 60 mg Oral kc6 Tablet, Extended Release 24 hr [Active]; - PMHx: 11:25 Diabetes mellitus; Hypertensive disorder; Myocardial infarction; dialysis MWF; kc6 - PSHx: 11:25 Coronary artery bypass graft; kc6 - Immunization history:: Adult Immunizations unknown. - Social history:: Smoking status: Patient denies any tobacco usage or history of. ROS: 12:25 Constitutional: Negative for fever, chills, and weight loss, Eyes: Negative for injury, sp3 pain, redness, and discharge, ENT: Negative for injury, pain, and discharge, Neck: Negative for injury, pain, and swelling, Abdomen/GI: Negative for abdominal pain, nausea, vomiting, diarrhea, and constipation, Back: Negative for injury and pain, MS/Extremity: Negative for injury and deformity, Neuro: Negative for headache, weakness, numbness, tingling, and seizure, Psych: Negative for depression, anxiety, suicide ideation, homicidal ideation, and hallucinations, Allergy/Immunology: Negative for hives, rash, and allergies, Endocrine: Negative for neck swelling, polydipsia, polyuria, polyphagia, and marked weight changes. 12:25 All other systems are negative. Exam: 12:25 Constitutional: This is a well developed, well nourished patient who is awake, alert, sp3 and in no acute distress. Head/Face: Normocephalic, atraumatic. Eyes: Pupils equal round and reactive to light, extra-ocular motions intact. Lids and lashes normal. Conjunctiva and sclera are non-icteric and not injected. Cornea within normal limits. Periorbital areas with no swelling, redness, or edema. Neck: Trachea midline, no thyromegaly or masses palpated, and no cervical lymphadenopathy. Supple, full range of motion without nuchal rigidity, or vertebral point tenderness. No Meningismus. Chest/axilla: Normal chest wall appearance and motion. Nontender with no deformity. No lesions are appreciated. Abdomen/GI: Soft, non-tender, with normal bowel sounds. No distension or tympany. No guarding or rebound. No evidence of tenderness throughout. Skin: Warm, dry with normal turgor. Normal color with no rashes, no lesions, and no evidence of cellulitis. Neuro: Awake and alert, GCS 15, oriented to person, place, time, and situation. Cranial nerves II-XII grossly intact. Motor strength 5/5 in all extremities. Sensory grossly intact. Cerebellar exam normal. Normal gait. Psych: Awake, alert, with orientation to person, place and time. Behavior, mood, and affect are within normal limits. 12:25 Cardiovascular: Rate: tachycardic, Patient is tachycardic and irregular rhythm.. 12:25 ECG was reviewed by the Attending Physician. EKG demonstrates sinus tachycardia at 120 bpm with incomplete right bundle branch block diffuse T wave abnormalities with inferior T waves inferior laterally that are unchanged from prior EKG dated 09/16/2022. Vital Signs: 11:24 BP 114 / 78; Pulse 130; Resp 26 S; Temp 97.4(O); Pulse Ox 90% on 4 lpm NC; Weight 61 kc6 kg; Height 5 ft. 3 in. (R); 11:46 BP 110 / 80; Pulse 129; Resp 23; Pulse Ox 91% on NC; iw 12:45 BP 107 / 76; Pulse 126; Resp 16 S; Pulse Ox 98% on 4 lpm NC; kc6 12:58 BP 122 / 84; Pulse 123; Resp 16; Pulse Ox 98% on 4 lpm NC; iw 13:43 BP 102 / 72; Pulse 124; Resp 18 S; Pulse Ox 100% on 4 lpm NC; Pain 8/10; kc6 15:37 BP 100 / 71; Pulse 115; Resp 16 S; Pulse Ox 90% on 4 lpm NC; kc6 17:11 BP 102 / 73; Pulse 121; Resp 16 S; Pulse Ox 94% on 4 lpm NC; kc6 11:24 Body Mass Index 23.82 (61.00 kg, 160.02 cm) kc6 13:43 Pain Scale: Adult kc6 MDM: 11:51 Patient medically screened. sp3 12:26 Data reviewed: vital signs, nurses notes, lab test result(s), EKG, radiologic studies. sp3 ED course: 67-year-old female with extensive cardiac history now back for recurrent chest pain or shortness of breath. Heart rate is sustained at 130. Laboratory values are pending. Patient is likely in continued CHF given her last BNP level was so elevated. Clinically she has mild Rales bilaterally but has an O2 requirement and on 4 L she is at 93% on room air.. 13:25 ED course: Patient is already on metoprolol and I will give 5 mg IV to help with heart sp3 rate. Blood pressure is still 137/87. Patient is resting comfortably at the moment but still complains of off-and-on chest pain. Chest x-ray demonstrates continued right chronic pleural effusion. Will defer to inpatient team on potential drainage and/or further management. BNP remains greater than 175,000 however clinically I do believe patient is in congestive heart failure. We will hold on diuresis at this time. Serial troponins and general observation and cardiology consult will be initiated. I will talk to inpatient team about this case.. 09/20 11:33 Order name: Basic Metabolic Panel; Complete Time: 12:22 iw 09/20 11:33 Order name: CBC with Diff; Complete Time: 12:22 iw 09/20 11:33 Order name: Troponin HS; Complete Time: 12:22 iw 09/20 11:52 Order name: BNP; Complete Time: 13:15 sp3 09/20 11:52 Order name: PT-INR; Complete Time: 12:57 sp3 09/20 16:18 Order name: Magnesium EDMS 09/20 16:18 Order name: Phosphorus EDMS 09/20 16:18 Order name: T4 Free EDMS 09/20 16:18 Order name: Thyroid Stimulating Hormone EDMS 09/20 16:18 Order name: Urinalysis w/ reflexes EDMS 09/20 16:18 Order name: CBC with Automated Diff EDMS 09/20 16:18 Order name: CBC with Automated Diff EDMS 09/20 16:18 Order name: Comprehensive Metabolic Panel EDMS 09/20 16:18 Order name: Comprehensive Metabolic Panel EDMS 09/20 16:18 Order name: NT PRO-BNP EDMS 09/20 16:18 Order name: NT PRO-BNP EDMS 09/20 16:18 Order name: Troponin High Sensitivity EDMS 09/20 16:18 Order name: Troponin High Sensitivity EDMS 09/20 16:19 Order name: Troponin High Sensitivity EDMS 09/20 11:33 Order name: XRAY Chest (1 view); Complete Time: 13:15 iw 09/20 11:33 Order name: EKG; Complete Time: 11:34 iw 09/20 16:18 Order name: Renal EDMS 09/20 11:33 Order name: Cardiac monitoring; Complete Time: 11:34 iw 09/20 11:33 Order name: EKG - Nurse/Tech; Complete Time: 11:39 iw 09/20 11:33 Order name: IV Saline Lock; Complete Time: 11:34 iw 09/20 11:33 Order name: Labs collected and sent; Complete Time: 11:34 iw 09/20 11:33 Order name: O2 Per Protocol; Complete Time: 11:34 iw 09/20 11:33 Order name: O2 Sat Monitoring; Complete Time: 11:34 iw Administered Medications: 13:34 Drug: Metoprolol IVP 5 mg Route: IVP; Site: left hand; kc6 15:38 Follow up: Response: No adverse reaction kc6 13:34 Drug: morphine IVP or IV 2 mg Route: IVP; Infused Over: 4 mins; Site: left hand; kc6 15:38 Follow up: Response: No adverse reaction; RASS: Alert and Calm (0) kc6 13:35 Drug: Ondansetron IVP 4 mg Route: IVP; Site: left hand; kc6 15:38 Follow up: Response: No adverse reaction kc6 Disposition Summary: 09/20/22 13:26 Hospitalization Ordered Hospitalization Status: Observation sp3 Provider: Kalyan Lennon sp3 Location: Telemetry/MedSurg (observation) sp3 Condition: Stable sp3 Problem: an acute exacerbation sp3 Symptoms: are unchanged sp3 Bed/Room Type: Standard sp3 Room Assignment: 211(09/20/22 16:16) dw Diagnosis - Chest pain, dyspnea, chronic right-sided pleural effusion, tachycardia sp3 Forms: - Medication Reconciliation Form sp3 - SBAR form sp3 Signatures: Dispatcher [employer] EDSarah Sky Diana, RN RN dw Williams, Irene, RN RN iw Marta Machuca MD MD sp3 Joycelyn Laura RN RN kc6 Corrections: (The following items were deleted from the chart) 16:15 13:26 sp3 bd 16:16 16:15 [address] [facility]
--- NOTE | 2022-09-20 13:26 | ER ---
Nurse's Notes [facility] Name: Qiana Valdez Age: 67 yrs Sex: Female : 1955 Arrival Date: 09/20/2022 Time: 11:10 Bed 2 Private MD: Diagnosis: Chest pain, dyspnea, chronic right-sided pleural effusion, tachycardia Presentation: 09/20 11:24 Chief complaint: EMS states: pt report chest pain and palpitations that began today. kc6 Coronavirus screen: At this time, the client does not indicate any symptoms associated with coronavirus-19. Ebola Screen: No symptoms or risks identified at this time. Initial Sepsis Screen: Does the patient meet any 2 criteria? No. Patient's initial sepsis screen is negative. Does the patient have a suspected source of infection? No. Patient's initial sepsis screen is negative. Risk Assessment: Do you want to hurt yourself or someone else? Patient reports no desire to harm self or others. Onset of symptoms. 11:24 Method Of Arrival: EMS: [facility] 6 11:24 Acuity: SIXTO 3 kc6 Triage Assessment: 11:25 General: Appears in no apparent distress. comfortable, Behavior is calm, cooperative, kc6 appropriate for age. Pain: Complains of pain in chest. Cardiovascular: Reports chest pain, Heart tones S1 S2 present Capillary refill < 3 seconds Rhythm is sinus tachycardia. Respiratory: Airway is patent Trachea midline Respiratory effort is even, unlabored, Respiratory pattern is regular, symmetrical. Historical: - Allergies: 11:25 No Known Allergies; kc6 - Home Meds: 13:21 metoprolol tartrate 100 mg Oral tablet [Active]; isosorbide mononitrate 60 mg Oral kc6 Tablet, Extended Release 24 hr [Active]; - PMHx: 11:25 Diabetes mellitus; Hypertensive disorder; Myocardial infarction; dialysis MWF; kc6 - PSHx: 11:25 Coronary artery bypass graft; kc6 - Immunization history:: Adult Immunizations unknown. - Social history:: Smoking status: Patient denies any tobacco usage or history of. Screenin:[address] [facility] ED Fall Risk Assessment (Adult) History of falling in the last 3 months, kc6 including since admission No falls in past 3 months (0 pts) Confusion or Disorientation No (0 pts) Intoxicated or Sedated No (0 pts) Impaired Gait No (0 pts) Mobility Assist Device Used No (0 pt) Altered Elimination No (0 pt) Score/Fall Risk Level 0 - 2 = Low Risk Oriented to surroundings, Maintained a safe environment, Educated pt \T\ family on fall prevention, incl call for assistance when getting out of bed, Assessed \T\ reinforced patient's understanding of fall precautions, Hourly rounding (assess needs \T\ fall precautionary measures) done. Abuse screen: Denies threats or abuse. Denies injuries from another. Nutritional screening: No deficits noted. Tuberculosis screening: No symptoms or risk factors identified. Assessment: 12:00 Reassessment: please see triage assessment. [facility] 12:58 Reassessment: Patient appears in no apparent distress at this time. Patient and/or iw family updated on plan of care and expected duration. Pain level reassessed. 13:58 Reassessment: Patient appears in no apparent distress at this time. No changes from [facility] previously documented assessment. Patient and/or family updated on plan of care and expected duration. Pain level reassessed. Patient is alert, oriented x 3, equal unlabored respirations, skin warm/dry/pink. 14:58 Reassessment: Patient appears in no apparent distress at this time. No changes from [facility] previously documented assessment. Patient and/or family updated on plan of care and expected duration. Pain level reassessed. Patient is alert, oriented x 3, equal unlabored respirations, skin warm/dry/pink. 15:58 Reassessment: Patient appears in no apparent distress at this time. No changes from [facility] previously documented assessment. Patient and/or family updated on plan of care and expected duration. Pain level reassessed. Patient is alert, oriented x 3, equal unlabored respirations, skin warm/dry/pink. 16:58 Reassessment: Patient appears in no apparent distress at this time. No changes from [facility] previously documented assessment. Patient and/or family updated on plan of care and expected duration. Pain level reassessed. Patient is alert, oriented x 3, equal unlabored respirations, skin warm/dry/pink. 17:05 Reassessment: attempted to call report, nurse unavailable. [facility] Vital Signs: 11:24 BP 114 / 78; Pulse 130; Resp 26 S; Temp 97.4(O); Pulse Ox 90% on 4 lpm NC; Weight 61 kc6 kg; Height 5 ft. 3 in. (R); 11:46 BP 110 / 80; Pulse 129; Resp 23; Pulse Ox 91% on NC; iw 12:45 BP 107 / 76; Pulse 126; Resp 16 S; Pulse Ox 98% on 4 lpm NC; kc6 12:58 BP 122 / 84; Pulse 123; Resp 16; Pulse Ox 98% on 4 lpm NC; iw 13:43 BP 102 / 72; Pulse 124; Resp 18 S; Pulse Ox 100% on 4 lpm NC; Pain 8/10; kc6 15:37 BP 100 / 71; Pulse 115; Resp 16 S; Pulse Ox 90% on 4 lpm NC; kc6 17:11 BP 102 / 73; Pulse 121; Resp 16 S; Pulse Ox 94% on 4 lpm NC; kc6 11:24 Body Mass Index 23.82 (61.00 kg, 160.02 cm) kc6 13:43 Pain Scale: Adult [facility] ED Course: 11:23 Patient arrived in ED. kc6 11:25 Triage completed. kc6 11:25 Arm band placed on. kc6 11:31 Marta Machuca MD is Attending Physician. sp3 11:40 Maintain EMS IV. Dressing intact. Good blood return noted. Site clean \T\ dry. Gauge \T\ iw site: 22 L wrist . 11:42 EKG done, by ED staff, reviewed by Marta Machuca MD. em1 11:59 Joycelyn Laura, RN is Primary Nurse. kc6 12:00 Patient has correct armband on for positive identification. Bed in low position. Call [facility] light in reach. Side rails up X2. Adult w/ patient. 12:07 PT-INR Sent. em1 12:07 BNP Sent. em1 12:08 XRAY Chest (1 view) In Process Unspecified. EDMS 13:25 Kalyan Lennon is Hospitalizing Provider. sp3 17:45 No provider procedures requiring assistance completed. Patient admitted, IV remains in kc6 place. Administered Medications: 13:34 Drug: Metoprolol IVP 5 mg Route: IVP; Site: left hand; kc6 15:38 Follow up: Response: No adverse reaction kc6 13:34 Drug: morphine IVP or IV 2 mg Route: IVP; Infused Over: 4 mins; Site: left hand; kc6 15:38 Follow up: Response: No adverse reaction; RASS: Alert and Calm (0) kc6 13:35 Drug: Ondansetron IVP 4 mg Route: IVP; Site: left hand; kc6 15:38 Follow up: Response: No adverse reaction kc6 Medication: 17:46 VIS not applicable for this client. kc6 Outcome: 13:26 Decision to Hospitalize by Provider. sp3 17:45 Admitted to Med/surg accompanied by tech, via stretcher, room 211, with oxygen, with kc6 chart, Report called to SUNITA Espinal 17:45 Condition: stable 17:45 Instructed on the need for admit. 17:46 Patient left the ED. kc6 Signatures: Dispatcher [employer] EDYvrose Sullivan, SUNITA RN iw Nemesio Bah em1 Marta Machuca MD MD sp3 Joycelyn Laura RN RN kc6 Corrections: (The following items were deleted from the chart) 11:47 11:46 BP 110 / 80; Pulse 129bpm; Resp 23bpm; Pulse Ox 91%; iw tony
[2022-09-20] MEDS ORDERED: METOPROLOL TARTRATE 5 MG/5 ML INJ IV ONE (13:36)
[2022-09-20] MEDS ORDERED: MORPHINE 2 MG/ML SYR ONE (13:36)
[2022-09-20] MEDS ORDERED: ONDANSETRON 4 MG/2 ML VIAL ONE (13:36)
[2022-09-20] MEDS ORDERED: HYDROCODONE/APAP 5/325 MG TAB PO PRN (16:06)
[2022-09-20] MEDS ORDERED: ACETAMINOPHEN 325 MG TABLET PO PRN (16:06)
[2022-09-20] MEDS ORDERED: ONDANSETRON 4 MG/2 ML VIAL IV PRN (16:15)
--- NOTE | 2022-09-20 16:50 | P.HP ---
Certification for Inpatient Patient admitted to: Inpatient With expected LOS: >2 Midnights Patient will require the following post-hospital care: None Practitioner: I am a practitioner with admitting privileges, knowledge of patient current condition, hospital course, and medical plan of care. Services: Services provided to patient in accordance with Admission requirements found in Title 42 Section 412.3 of the Code of Federal Regulations Patient History Date of Service: 09/20/22 Reason for admission: Palpitations, chest pain, elevated troponin History of Present Illness: Patient is a 67-year-old female with a past medical history significant for DM 2, ESRD, HLD, hypertension, ANDRY, [place], pacemaker, CABG, paroxysmal A-fib who presents with complaint of palpitations that has been ongoing for the past 2 days. Patient reported that yesterday she started having pain in the substernal chest area rated as 8/10 in severity and described as pressure in quality. Patient also reports episode of shortness of breath. Patient is on O2 2 L at 3 L/min at home. Patient was discharged from the hospital 3 days ago for similar symptoms. Patient reported associated signs and symptoms of weakness, fatigue and generalized malaise. Patient reported that she is on MWF dialysis schedule. Patient denies any other signs and symptoms. Symptoms are aggravated or relieved by nothing. Patient decided to present to the hospital for medical evaluation. Allergies No Known Allergies Allergy (Verified 04/02/22 00:05) Home Medications: Sucroferric Oxyhydroxide [Velphoro] 1,000 mg PO TIDWM 04/01/22 Trazodone [Desyrel*] 50 mg PO BEDTIME 04/01/22 Metoprolol Tartrate 100 mg PO BID 05/31/22 NIFEdipine [Nifedipine ER] 60 mg PO DAILY 05/31/22 Isosorbide Mononitrate [Isosorbide Mononitrate ER] 60 mg PO DAILY 06/25/22 Aspirin [Aspirin EC 81 MG] 81 mg PO DAILY #30 tab 06/28/22 Atorvastatin Calcium [Lipitor] 40 mg PO BEDTIME #30 tab 06/28/22 Dicyclomine HCl 20 mg PO QID PRN 07/21/22 - Past Medical/Surgical History Diabetic: Yes -: Hypertension -: Type 2 Diabetes Mellitus, Non-Insulin Dependent -: ESRD - MWF -: CAD with prior stent S/P CABG -: Hyperlipidemia -: GERD -: Anemia of chronic disease with iron deficiency -: Hyperparathyroidism -: Diabetic neuropathy -: Diabetic neuropathy -: COVID-19 01/21/2020 -: Triple bypass -: Pacemaker -: Tubal ligation -: Fistula aneursym reconstruction 4 times -: Bilateral cataract surgery -: Triple Bipass 06/2021 Psychosocial/ Personal History: Lives at home with daughter - Family History Mother -: Heart disease, Diabetes Father -: Heart disease, Diabetes - Social History Smoking Status: Never smoker Alcohol use: No CD- Drugs: No Caffeine use: Yes Place of Residence: Home Review of Systems General: Weakness, Other (ftigue) Eyes: Unremarkable ENT: Unremarkable Respiratory: Shortness of Breath Cardiovascular: Chest Pain, Palpitations Gastrointestinal: Unremarkable Genitourinary: Unremarkable Musculoskeletal: Unremarkable Integumentary: Unremarkable Neurological: Weakness Lymphatics: Unremarkable Physical Examination - Physical Exam General: Alert, Oriented x3, Cooperative, Mild distress HEENT: Atraumatic, PERRLA, Mucous membr. moist/pink, EOMI, Sclerae nonicteric Neck: Supple, 2+ carotid pulse no bruit, No LAD, Without JVD or thyroid abnormality Respiratory: Normal air movement, Diminished Cardiovascular: No edema, Normal S1 S2, Irregular heart rate/rhythm Capillary refill: <2 Seconds Gastrointestinal: Normal bowel sounds, Soft and benign, Non-distended, No tenderness Musculoskeletal: No clubbing, No swelling, No tenderness Integumentary: No rashes, No breakdown, No significant lesion Neurological: Normal speech, Normal tone, Normal affect Lymphatics: No axilla or inguinal lymphadenopathy - Studies Laboratory Data (last 24 hrs) 09/20/22 12:05: PT 15.8 H, INR 1.44 09/20/22 11:30: WBC 4.10 L, Hgb 10.9 L, Hct 34.0 L, Plt Count 102 L 09/20/22 11:30: Sodium 132 L, Potassium 4.9, BUN 54 H, Creatinine 5.75 H, Glucose 142 H Assessment and Plan - Plan --Palpitations\tachycardia. Patient given metoprolol IV. Cardiology consulted. Telemetry to monitor for any significant arrhythmia. Continue metoprolol twice daily. Will await further recommendations from nail specialist. --Chest pain. To rule out ACS. Troponin level elevated. We will trend serial troponins. Cardiology consulted. Telemetry to monitor for any significant arrhythmia. We will await further recommendation from cardiology. --Elevated Troponin. We will continue to trend troponin levels. Gasoline Pump Mechanic on board. Telemetry to --History of CAD\CABG. Continue aspirin and statin. --ESRD. Nephrology consulted. Dialysis schedule per band presser. --Mild hyponatremia. Likely secondary to volume overload. Further management per band presser. --Hypertension. Stable. Continue home medications -- Hyperlipidemia. Continue statin. --ANDRY. Continue home medication. --DVT prophylaxis with SCDs Discharge Plan: Home Plan to discharge in: Greater than 2 days - Advance Directives Does patient have a Living Will: No Does patient have a Durable POA for Healthcare: No - Code Status/Comfort Care Code Status Assessed: Yes Physician Review: Patient Assessed, Agree with Above Assessment and Plan Critical Care: No
--- NOTE | 2022-09-20 18:53 | CON ---
Date of Consultation: 09/20/2022 Reason For Consultation: Elevated troponin. History Of Present Illness: A 67-year-old female with history of diabetes, coronary artery disease, status post triple bypass, dyslipidemia, hypertension, end-stage renal disease, on hemodialysis, atri al fibrillation, presented to the emergency room with shortness of breath and orthopnea and lower ext remity edema. She was hypoxic and was fluid overloaded. She claims that she does her dialysis on a regular basis as scheduled. Past Medical History: As outlined above in the HPI. Medications: Refer to reconciliation sheet for detailed list. Allergies: NO KNOWN DRUG ALLERGIES. Family History: No premature coronary artery disease or cancer. Social History: She does not smoke or drink. Does not use any drugs. Review of Systems: All systems reviewed and they were negative except what mentioned in HPI. Physical Examination: Vital Signs: Reviewed. Head and Neck: Pupils are equal, reactive to light. Intact eye movements. No cervical adenopathy. Positive JVD. Lungs: Crackles in both bases. No accessory muscle use or muscle retraction. Heart: Irregular. No extra sounds. Abdomen: Soft, nontender. Bowel sounds positive. No organomegaly. No masses or hernia. No rigidi ty or rebound. Extremities: No edema, clubbing, or cyanosis. Intact pulses. Skin: No rash. Neurologic: Alert, awake, oriented x3. No acute focal deficits appreciated. Lymph Nodes: No cervical or axillary lymphadenopathy. Investigations: BUN 54, creatinine 5.7. Troponin 544. NT-proBNP more than 175,000. Assessment And Recommendations: 1.Elevated troponin with a heart catheterization on her last year in November with patent grafts. She had a stress test that was negative for ischemia back in June this year. This is definitely demand ischemia and no need for further cardiac workup on this matter. 2.Shortness of breath due to significant fluid overload status. I recommend that she gets dialysis [id number] to get relief. She has significant elevated JVD suggestive of severe fluid retention st atus. SR/MODL Voice ID: [id number] Report ID: [id number]
[2022-09-20 19:55] LABS: Phosphorus 5.6 mg/dL (2.5-4.9)
[2022-09-20 19:57] LABS: Thyroid Stimulating Hormone 4.99 uIU/mL (0.358-3.740)
[2022-09-20] MEDS: METOPROLOL TAR 50 MG TAB PO SCH (20:11)
[2022-09-20] MEDS ORDERED: HOME MED 1 EA UNK (Metoprolol Tartrate [Metoprolol Tartrate] 100 MG Tablet) PO SCH (21:00)
[2022-09-20] MEDS: MORPHINE 2 MG/ML SYR IV PRN (23:26)
[2022-09-21 01:04] LABS: Arterial Blood Carboxyhemoglob 1.1 % (0-1.5); Blood Gas Oxyhemoglobin 69.7 % (94-97); Blood O2 Saturation 71.3 % (92-98.5)
[2022-09-21 03:46] LABS: Absolute Lymphocytes (CBC) 1.2 K/uL (0.7-4.9); Hematocrit 33.1 % (36.0-45.0); Lymphocytes % 29.6 % (15.3-44.8); MCV 99.9 fL (80-100); MPV 8.9 fL (7.6-11.3); RBC Red Blood Cell Count 3.31 M/uL (3.86-4.86)
[2022-09-21 04:23] LABS: ALT/SGPT 24 U/L (13-56); AST/SGOT 32 U/L (15-37); Albumin 3.1 g/dL (3.4-5.0); Alkaline Phosphatase 129 U/L (45-117); BUN Blood Urea Nitrogen 65 mg/dL (7-18); Bicarbonate 22 mEq/L (21-32); Bilirubin Total 0.8 mg/dL (0.2-1.0); Glomerular Filtration Rate 7 ml/min (=/>90); Glucose Level 106 mg/dL (74-106); Potassium 5.5 mEq/L (3.5-5.1); Protein, Total 8.4 g/dL (6.4-8.2); Sodium Level 132 mEq/L (136-145)
[2022-09-21 04:24] LABS: NT PRO-BNP > 175000 pg/mL (<125)
[2022-09-21 04:40] LABS: Anisocytosis 1+; Blood Morphology Comment NOTED (NOT SEEN); Platelet Estimate ADEQ
[2022-09-21 04:54] LABS: Hepatitis B Core Ab, Total Nonreactive (Nonreactive); Hepatitis B Core IgM Nonreactive (Nonreactive); Hepatitis B Surface Ab - Quant 65.71 mIU/mL (<8.0); Hepatitis C Virus Ab Nonreactive (Nonreactive)
--- NOTE | 2022-09-21 07:00 | P.PN ---
Date of Service: 09/21/22 Subjective: SOB worsened overnight switched to HFNC, desat to 80s on 4L NC yesterday Transferred to ICU today ROS: 10 point ROS as noted above, otherwise negative Physical Exam: GEN: Alert, oriented, moderate distress HEENT: Normal conjunctiva, sclera anicteric CV: sinus tachycardia, no edema, V/ murmur Pulm: moderately-labored respirations on HFNC, diminished at bases b/l,R>L ABD: Soft, nontender, nondistended Integumentary: No rashes Neuro: normal affect, moves all extremities vitals reviewed Problem List: Chest pain\Palpitations\tachycardia h/o CAD\CABG h/o severe tricuspid regurgitation, severe pulmonary hypertension Chronic loculated R Pleural Effusion ESRD on HD Mild hyponatremia Hypertension Hyperlipidemia ANDRY acute on chronic hypoxemic respiratory failure Chest pain\Palpitations\tachycardia h/o CAD\CABG h/o severe tricuspid regurgitation, severe pulmonary hypertension Patient given metoprolol IV. continue BID Troponins elevated x3. Monitor on Telemetry Last stress test was negative for ischemia back in June 2022 acute on chronic hypoxemia likely multifactorial, and without clear etiology at this time ?worsening CHF, tricuspid regurgitation, pleural effusion, worsening pulmonary hypertension, and/or arrhythmia cardiology consulted for assistance with NSTEMI, severe TR, severe pulm htn does not appear grossly overloaded R pleural effusion, appears loculated and chronic, possibly mildly worse severe pulmonary hypertension may be biggest culprit echo ordered CT chest ordered for 09/22, with IV contrast, r/o PE and further eval effusion confirmed with nephrology, will plan for dialysis after CT tomorrow Chronic loculated R Pleural Effusion CXR (09/20): Chronic loculated moderate right pleural effusion Chest u/s (09/21): Pleural effusion, with component of possible loculation versus cystic lung parenchymal changes Pulmonology consulted - eval for drainage, or may need CT surgery ESRD. mild hyponatremia Nephrology consulted. missed dialysis appointment yesterday; HD ordered for today Hypertension. Stable. Continue home medications Hyperlipidemia. Continue statin. ANDRY. Continue home medication. VTE: Heparin with every HD Code: Full Dispo: Home, ~3 days Transfered to ICU 09/21
[2022-09-21] MEDS: METOPROLOL TAR 50 MG TAB PO SCH ×2 (08:40→21:05)
--- NOTE | 2022-09-21 11:36 | RAD REPORT ---
EXAM DESCRIPTION: US - Chest - 09/21/2022 10:49 am CLINICAL HISTORY: ?Right-sided loculated effusion COMPARISON: None. TECHNIQUE: Real-time sonographic evaluation of the right lateral posterior chest was performed. FINDINGS: Layering fluid seen in the right lateral posterior chest. Deeper component of multiloculat ed fluid with septations, could relate to loculated effusion component or cystic changes within colla psed lung parenchyma. IMPRESSION: Pleural effusion, with component of possible loculation versus cystic lung parenchymal c hanges. Additional evaluation by CT would provide improved characterization.
[2022-09-21 11:49] LABS: Hepatitis B surface AG Interp. Nonreactive (Nonreactive)
[2022-09-21 19:18] LABS: Albumin 3.1 g/dL (3.4-5.0); Potassium 4.6 mEq/L (3.5-5.1); Protein, Total 8.8 g/dL (6.4-8.2)
[2022-09-21] MEDS ORDERED: D50W 25 GM/50 ML SYRINGE IV PRN (20:20)
[2022-09-21] MEDS ORDERED: GLUCAGON 1 MG/VIAL IM PRN (20:20)
[2022-09-21] MEDS ORDERED: D10W 125 ML IV PRN (20:33)
--- NOTE | 2022-09-21 20:51 | RAD REPORT ---
EXAM DESCRIPTION: Samuel Single View09/21/2022 7:41 pm CLINICAL HISTORY: Chest pain COMPARISON: September 20, 2022 FINDINGS: Moderate chronic loculated right pleural effusion with basilar atelectasis Left lung appears clear Heart is moderately enlarged. Postsurgical changes involve the chest. Pacemaker leads in place
[2022-09-21] MEDS: INSULIN -REGULAR HUMAN 50 UNIT/0.5 ML ML SQ SCH (21:00)
[2022-09-21] MEDS: Mupirocin NASAL 2 APPL/1 GM TUBE NAS SCH (21:04)
--- NOTE | 2022-09-22 00:31 | CON ---
Date of Consultation: 09/21/2022 Chief Complaint: End-stage renal disease, on dialysis. History Of Present Illness: The patient came to the hospital because of chest pain and palpitations. She had paroxysmal atrial fibrillation. She was complaining of chest pain, she said that she had palpitations and it was going on for 2 days prior admission. She had cardiac catheterization done before and during this admission, certified performance technologist was consulted because of chest pain. The patient has multiple medical problems including history of congestive heart failure, coronary artery disease, history of myocardial infarction, pacemaker, hyperlipidemia, and diabetes mellitus, renal artery stenosis. The patient came to the hospital because she developed chest pain associated with palpitations , which was substernal, rated as 8/10 in severity and described as a pressure in quality She is on chronic O2 nasal cannula at 3 L at home for chronic dyspnea and congestive heart failure. The patient has severe pulmonary hypertension and mitral regurgitation. The patient has history of multiple admissions for shortness of breath and chest pain. She mentioned today that she had fever on Tuesday and took Acetaminophen at home, her temperature was up to 102.2. On Tuesday she came to emergency room because new onset of substernal chest pain and palpitation . Chest x-ray showed chronic pleural effusion and no evidence of pulmonary edema and no infiltrates. Patient was transferred to ICU from telemetry floor today, she was treated with high flow oxygen for severe shortness of breath. ER work-up showed elevated BNP, elevated troponin level. Patient received hemodialysis with ultrafiltration with 2.5 L of fluid removal. After hemodialysis patient had some mild to moderate improvement of dyspnea. Review of Systems: General: Had a high-grade fever, which resolved and during this admission, she has been afebrile. Eyes: Denies new vision changes. Ears, Nose, Mouth, And Throat: Denies sore throat, earache. Cardiovascular: Denies chest pain or syncope, but when she came to the hospital, she was complaining of palpitations and some chest pain, which resolved after the patient was medicated with nitroglycerin in the emergency room. : Denies dysuria or hematuria. Musculoskeletal: Denies body aches. Denies swelling. All other systems reviewed and all are negative. Past Medical History: Diabetes mellitus, insulin dependent; diabetic kidney disease; chronic anemia due to CKD, renal osteodystrophy; end-stage renal disease, on hemodialysis; coronary artery disease with prior stent and status post CABG; hyperlipidemia; GERD; anemia due to chronic kidney disease, anemia due to iron deficiency; hyperparathyroidism; diabetic neuropathy; COVID-19 infection; pacemaker; tubal ligation; severe pulmonary hypertension; mitral valve regurgitation; bilateral cataract surgery; and triple bypass in June 2021; and renal artery stenosis. Family History: Mother: Heart disease, diabetes. Father: Heart disease and diabetes. Social History: Denies tobacco, alcohol, or illicit drugs. Physical Examination: General: The patient is cooperative, oriented x3, in mild respiratory distress. HEENT: Atraumatic. Mucous membrane moist and pink. EOMI. Neck: Supple. No bruits. Respiratory: Normal air movement, diminished at bases. Cardiovascular: S1, S2 irregularly irregular. GI: Abdomen soft. Benign, nontender. Musculoskeletal: No clubbing, no cyanosis, no edema. Skin: No skin rashes. No bruises. Neurologic: Normal speech. Denies extremity weakness. She has generalized weakness. Laboratory Data: WBC 4.1, hemoglobin 10.9, and platelet count 102,000. Sodium 132, potassium 4.9, BUN 54, creatinine 5.75, and glucose 142. Impression And Plan: 1. Palpitations, tachycardia. The patient received IV metoprolol. Cardiology was consulted . The patient will continue metoprolol twice a day. 2. Chest pain. Troponin was elevated and Cardiology was consulted to rule out acute coronary syndrome. The patient is admitted for arrhythmia and chest pain, troponin was elevated, O2 nasal cannula for chronic respiratory distress and high flow oxygen therapy, management per primary team. 3. History of coronary artery disease, coronary artery bypass graft. Continue aspirin and statin. Further recommendations per Cardiology 4. End-stage renal disease. Dialysis was done with ultrafiltration, continue daily dialysis to control volemia, adjust target weight according to ultrafiltration response. Monitor BP during hemodialysis, adjust ultrafiltration goal accordingly. 5. Mild hyponatremia, corresponds with some fluid overload although the patient does not have extremity edema. Chest x-ray did not show infiltrate except there is chronic pleural effusion. Continue low Sodium diet , po fluid restriction, daily hemodialysis and ultrafiltration during current hospitalization, 6. Pleural effusion, work-up per pulmonary The patient is to have CT angiogram to rule out any evidence of pulmonary embolization. Hemodialysis will be done after IV contrast exposure to prevent contrast related hyperkalemia. 7. Hyperlipidemia. Continue low-cholesterol diet. Continue statin. reevaluate fating lipids. 8. Pulmonary hypertension. Further recommendation from Cardiology and Pulmonary. 9. Deep vein thrombosis prophylaxis, per Primary Team. Further recommendation from attending. 10. Fever, check blood culture. Pleural effusion management per primary team and pulmonary, EB/MODL Voice ID: [id number] Report ID: [id number] SHRAVAN
[2022-09-22 04:44] LABS: Absolute Lymphocytes (CBC) 0.9 K/uL (0.7-4.9); Hematocrit 33.1 % (36.0-45.0); Lymphocytes % 28.1 % (15.3-44.8); MCV 99.7 fL (80-100); MPV 8.7 fL (7.6-11.3); RBC Red Blood Cell Count 3.32 M/uL (3.86-4.86)
[2022-09-22 05:06] LABS: Magnesium 2.6 mg/dL (1.6-2.4); Potassium 4.7 mEq/L (3.5-5.1)
--- NOTE | 2022-09-22 06:50 | P.PN ---
Date of Service: 09/22/22 Subjective: feeling better today breathing improving, off HFNC since yesterday otherwise no new / worsening problems afebrile ROS: 10 point ROS as noted above, otherwise negative Physical Exam: GEN: Alert, oriented, NAD HEENT: Normal conjunctiva, sclera anicteric CV: sinus tachycardia, no edema, V/ murmur Pulm: mildly-labored respirations on 5L NC, diminished at bases b/l,R>L ABD: Soft, nontender, nondistended Neuro: normal affect, moves all extremities vitals reviewed Problem List: Chest pain\Palpitations\tachycardia h/o CAD\CABG h/o severe tricuspid regurgitation, severe pulmonary hypertension Chronic loculated R Pleural Effusion ESRD on HD Mild hyponatremia Hypertension Hyperlipidemia ANDRY acute on chronic hypoxemic respiratory failure Chest pain\Palpitations\tachycardia h/o CAD\CABG h/o severe tricuspid regurgitation, severe pulmonary hypertension Patient given metoprolol IV. continue BID Troponins elevated x3. Monitor on Telemetry Last stress test was negative for ischemia back in June 2022 acute on chronic hypoxemia likely multifactorial, and without clear etiology ?worsening CHF, tricuspid regurgitation, pleural effusion, worsening pulmonary hypertension, and/or arrhythmia cardiology consulted for assistance with NSTEMI, severe TR, severe pulm htn does not appear grossly overloaded R pleural effusion, appears loculated and chronic, possibly mildly worse severe pulmonary hypertension may be biggest culprit echo ordered CTA to be done today, with dialsys afterwards - coordinated with nephrology to eval effusion, for planning - likely outpatient procedure r/o PE Chronic loculated R Pleural Effusion CXR (09/20): Chronic loculated moderate right pleural effusion Chest u/s (09/21): Pleural effusion, with component of possible loculation versus cystic lung parenchymal changes Pulmonology consulted - eval for drainage, or may need CT surgery CTA chest 09/22 ordered ESRD mild hyponatremia Nephrology consulted. HD ordered for today after CTA Hypertension. Stable. Continue home medications Hyperlipidemia. Continue statin. ANDRY. Continue home medication. VTE: Heparin sq Code: Full Dispo: Home, ~2 days Transfered to ICU 09/21 due to worsening hypoxia improving, possible downgrade in next 24hrs
[2022-09-22] MEDS: INSULIN -REGULAR HUMAN 50 UNIT/0.5 ML ML SQ SCH ×4 (07:30→21:41)
[2022-09-22] MEDS: METOPROLOL TAR 50 MG TAB PO SCH ×2 (08:13→21:36)
[2022-09-22] MEDS: Mupirocin NASAL 2 APPL/1 GM TUBE NAS SCH ×2 (08:14→21:37)
--- NOTE | 2022-09-22 10:06 | RAD REPORT ---
EXAM DESCRIPTION: CT - Chest Angio - 09/22/2022 9:52 am CLINICAL HISTORY: Chest pain. r/o PE, eval effusion / loculation, thickness COMPARISON: Thorax W/ Con dated 06/26/2022 TECHNIQUE: CT angiogram of the pulmonary arteries was performed with MIP. All CT scans are performed using dose optimization technique as appropriate and may include automated exposure control or mA/KV adjustment according to patient size. FINDINGS: No evidence of pulmonary thromboembolism. No acute aortic finding demonstrated. Moderate cardiomegaly. Pacer device is present. Moderate loculated right pleural effusion is present. Airspace opacity in the right lung base may rep resent atelectasis or infiltrate/pneumonia. Mild interstitial pulmonary edema seen. No left-sided significant pleural fluid. No significant pericardial effusion. No concerning bony finding. IMPRESSION: No evidence of pulmonary thromboembolism. Moderate loculated right pleural effusion with atelectasis/infiltrate right lung base. Mild to moderate CHF pattern is suspected.
--- NOTE | 2022-09-22 10:27 | RAD REPORT ---
EXAM DESCRIPTION: CT - Stone Protocol - 09/22/2022 9:48 am CLINICAL HISTORY: Flank pain. ascites, fever COMPARISON: Abdomen Pelvis Wo Contrast dated 09/11/2022 TECHNIQUE: Axial images were obtained without oral or IV contrast. Lack of contrast limits solid org an and vascular assessment. The [id number] spans the entirety of the system partially obscuring uppermost abdomen and lung bases. Coronal reformatted images were obtained and reviewed. All CT scans are performed using dose optimization technique as appropriate and may include automated exposure control or mA/KV adjustment according to patient size. FINDINGS: Moderate loculated right pleural effusion. There is a subtle nodular contour to the hepatic parenchyma. Size of the liver is mildly enlarged. Th is may indicate mild cirrhotic changes. Cholelithiasis.The spleen is normal in size. The pancreas and adrenal glands are normal. No pathologic lymphadenopathy in the abdomen or pelvis. Both kidneys are significantly atrophic. No hydronephrosis. Mild free fluid is seen in the abdomen and pelvis. Moderate stool is present throughout the colon. No rmal appendix noted.Aortoiliac atherosclerotic calcification. No significant bony abnormality. IMPRESSION: Significantly atrophic kidneys compatible with underlying medical renal disease. No hydr onephrosis. Mild ascites is present in the abdomen and pelvis. Cholelithiasis. Moderate loculated right pleural effusion.
--- NOTE | 2022-09-22 12:23 | P.CNS ---
Date of Consult: 09/15/22 Reason for Consult: Shortness of breath Chief Complaint: Palpitations, chest pain, elevated troponin History of Present Illness: Is 67 years of age with a history of renal failure chronic right-sided loculated effusion admitted to the hospital complaining of palpitations she has had previous admissions for palpitations complaining of retrosternal chest pain. Condition got worse more hypoxic ended up here in the ICU this morning patient is s/p dialysis feeling a lot better into the patient she has had a thoracentesis on the right side before the history of coronary artery disease and bypass surgery denies any fever or chills Allergies No Known Allergies Allergy (Verified 04/02/22 00:05) Home Medications: Sucroferric Oxyhydroxide [Velphoro] 1,000 mg PO TIDWM 04/01/22 Trazodone [Desyrel*] 50 mg PO BEDTIME 04/01/22 Metoprolol Tartrate 100 mg PO BID 05/31/22 Dicyclomine HCl 20 mg PO QID PRN 07/21/22 - Past Medical/Surgical History Diabetic: Yes -: Hypertension -: Type 2 Diabetes Mellitus, Non-Insulin Dependent -: ESRD - MWF -: CAD with prior stent S/P CABG -: Hyperlipidemia -: GERD -: Anemia of chronic disease with iron deficiency -: Hyperparathyroidism -: Diabetic neuropathy -: Diabetic neuropathy -: COVID-19 01/21/2020 -: Triple bypass -: Pacemaker -: Tubal ligation -: Fistula aneursym reconstruction 4 times -: Bilateral cataract surgery -: Triple Bipass 06/2021 Psychosocial/ Personal History: Lives at home with daughter - Family History Mother Medical History: Heart disease, Diabetes Father Medical History: Heart disease, Diabetes - Social History Smoking Status: Unknown if ever smoked Alcohol use: No CD- Drugs: No Caffeine use: Yes Place of Residence: Home Review of Systems 10-point ROS is otherwise unremarkable General: Malaise Physical Examination Temp Pulse Resp BP Pulse Ox 97.2 F 89 14 129/63 95 09/22/22 08:00 09/22/22 09:00 09/22/22 09:00 09/22/22 09:00 09/22/22 09:00 General: Alert, Oriented x3 Respiratory: Diminished (Patient entry on the right side) Cardiovascular: No edema, Regular rate/rhythm, Normal S1 S2 Gastrointestinal: Normal bowel sounds, Soft and benign - Problems (1) Loculated pleural effusion Current Visit: Yes Status: Acute Plan: She is 67 years of age admitted with palpitation shortness of breath chronic right-sided loculated pleural effusion dense of thromboembolism better after dialysis is to have a mild pancytopenia no evidence of any infection pulmonary referral as an outpatient to thoracic surgery department possible decortication becomes more symptomatic patient has oxygen at home likely the lung is trapped
--- NOTE | 2022-09-22 12:32 | PN ---
Date of Progress Note: 09/22/2022 Subjective: The patient was admitted with hypertension, over volume. The patient found to have a pl eural effusion. The patient had dialysis yesterday, managed to remove 3 L. The patient is scheduled for CT angio today. We will do dialysis after the CT for clearance. Physical Examination: Vital Signs: Blood pressure 127/67, pulse of 92, afebrile. Chest: Decreased entry on the right base with dullness. Heart: S1, S2. Systolic murmur. Abdomen: Soft, nontender. Extremity: Trace edema. Neurologic: Alert. No focality. Laboratory Data: Hemoglobin 10.6, WBC 3.3. Sodium 132, potassium 4.7, bicarb 26, BUN 42, creatinine 4.8, calcium 8.6, magnesium 2.6, albumin 3.1, phosphorus 5.6, corrected albumin is 9.4. Chest x-ray ; cardiomegaly with right pleural effusion. Chest ultrasound show possible localization. CT planned for today. Current Medications: The patient on include; 1.Heparin. 2.Metoprolol. 3.Mupirocin. 4.Zofran. Assessment And Plan: 1.End-stage renal disease with over volume. I am going to continue the patient on the dialysis. Th e patient is going to get dialysis today. Then, we will switch her while she is here as Tuesday, , Tuesday, then she can go back to her schedule next week. We will follow up the patient. 2.Hypertension, controlled, optimal. Continue current treatment. Blood pressure has been controlle d. We will utilize blood pressure for more ultrafiltration. 3.Secondary hyperparathyroidism, stable. We will monitor. 4.Anemia of chronic kidney disease, stable. No need for MELA. 5.Over volume. We will continue to challenge the patient. 6.Hyponatremia, dilutional secondary to renal failure. Will be corrected with dialysis. 7.Renal artery stenosis, status post stenting. We will follow up with primary. 8.Pleural effusion. Followup CT to rule out PE or other localization. LEIGHANN Voice ID: [id number] Report ID: [id number]
--- NOTE | 2022-09-22 19:11 | EKG ---
Test Date: 2022-09-21 Test Time: 13:08:06 Water Pumper: THERESA MEASUREMENT RESULTS: Intervals: Rate: 87 AL: QRSD: 108 QT: 394 QTc: 474 [place]: P: AL: QRS: 14 T: 208 INTERPRETIVE STATEMENTS: Accelerated Junctional rhythm Incomplete right bundle branch block ST & T wave abnormality, consider inferior ischemia ST & T wave abnormality, consider anterolateral ischemia Prolonged QT Abnormal ECG Electronically Signed On 09-22-22 19:09:28 CDT by Bradley Santamaria
--- NOTE | 2022-09-22 19:14 | EKG ---
Test Date: 2022-09-20 Test Time: 19:34:20 Tube Building Machine Operator: BRET MEASUREMENT RESULTS: Intervals: Rate: 112 MD: 248 QRSD: 108 QT: 312 QTc: 425 [place]: P: 35 MD: 248 QRS: 154 T: 269 INTERPRETIVE STATEMENTS: Sinus tachycardia with 1st degree AV block Right axis deviation Incomplete right bundle branch block Right ventricular hypertrophy ST & T wave abnormality, consider inferior ischemia ST & T wave abnormality, consider anterolateral ischemia Abnormal ECG Compared to ECG 09/20/2022 11:39:13 First degree AV block now present ST (T wave) deviation still present Possible ischemia still present Electronically Signed On 09-22-22 19:10:55 CDT by Bradley Santamaria
--- NOTE | 2022-09-22 19:16 | EKG ---
Test Date: 2022-09-20 Test Time: 11:39:13 Refrigeration Mechanic: KALPESH MEASUREMENT RESULTS: Intervals: Rate: 128 UT: 178 QRSD: 110 QT: 356 QTc: 519 [place]: P: 21 UT: 178 QRS: 110 T: 266 INTERPRETIVE STATEMENTS: Sinus tachycardia Right axis deviation Incomplete right bundle branch block Right ventricular hypertrophy ST & T wave abnormality, consider inferior ischemia ST & T wave abnormality, consider anterolateral ischemia Abnormal ECG Compared to ECG 09/16/2022 14:11:44 Right-axis deviation now present Incomplete right bundle-branch block now present Right ventricular hypertrophy now present ST (T wave) deviation now present Electronically Signed On 09-22-22 19:11:42 CDT by Bradley Santamaria
[2022-09-22] MEDS ORDERED: AMIODARONE HCL 150 MG in D5W 100 ML IV STA (19:42)
[2022-09-22] MEDS ORDERED: AMIODARONE HCL 450 MG in D5W 241 ML IV SCH (20:00)
[2022-09-22] MEDS ORDERED: AMIODARONE IN DEXTROSE,ISO-OSM 360 MG/200 ML BAG IV ONE (20:05)
[2022-09-23] MEDS ORDERED: AMIODARONE HCL 150 MG/3 ML INJ IV ONE ×2 (02:29→02:46)
[2022-09-23 05:11] LABS: Absolute Lymphocytes (CBC) 0.9 K/uL (0.7-4.9); Hematocrit 34.2 % (36.0-45.0); Lymphocytes % 26.8 % (15.3-44.8); MPV 8.5 fL (7.6-11.3); RBC Red Blood Cell Count 3.45 M/uL (3.86-4.86)
[2022-09-23 05:33] LABS: Magnesium 2.3 mg/dL (1.6-2.4); Potassium 3.7 mEq/L (3.5-5.1)
--- NOTE | 2022-09-23 06:49 | ECHO ---
HEIGHT: 5 ft 3 in WEIGHT: 130 lb 1.6 oz DATE OF STUDY: 09/21/[address]: Doron Lau MD 2-DIMENSIONAL: YES M.MODE: YES DOPPLER: YES COLOR FLOW: YES TDS: PORTABLE: YES DEFINITY: BUBBLE STUDY: DIAGNOSIS: EVALUATE FUNCTION CARDIAC HISTORY: CATHERIZATION: YES SURGERY: YES PROSTHETIC VALVE: PACEMAKER: YES MEASUREMENTS (cm) DIASTOLIC (NORMALS) SYSTOLIC (NORMALS) IVSd 0.9 (0.6-1.2) LA Diam 4.7 (1.9-4.0) LVEF 45-50% LVIDd 4.4 (3.5-5.7) LVIDs 3.9 (2.0-3.5) %FS % LVPWd 1.0 (0.6-1.2) Ao Diam 2.6 (2.0-3.7) 2 DIMENSIONAL ASSESSMENT: RIGHT ATRIUM: NORMAL LEFT ATRIUM: ENLARGED RIGHT VENTRICLE: DILATED RIGHT VENTRICLE LEFT VENTRICLE: MILDLY DEPRESSED EJECTION FRACTION TRICUSPID VALVE: SEVERE TRICUSPID REGURGITATION MITRAL VALVE: MILD MITRAL REGURGITATION PULMONIC VALVE: MODERATE PULMONIC INSUFFICIENCY AORTIC VALVE: NORMAL PERICARDIAL EFFUSION: NONE AORTIC ROOT: NORMAL LEFT VENTRICULAR WALL MOTION: MILD GLOBAL HYPOKINESIS DOPPLER/COLOR FLOW: SEE BELOW COMMENTS: 1. MILDLY DEPRESSED LEFT VENTRICULAR EJECTION FRACTION 45-50% 2. MILD GLOBAL HYPOKINESIS 3. SEVERELY DILATED RIGHT VENTRICLE WITH MODERATE DYSFUNCTION 4. SEVERE TRICUSPID REGURGITATION 5. MODERATE PULMONIC INSUFFICIENCY 6. LEFT ATRIAL ENLARGEMENT 7. SEVERE DIASTOLIC DYSFUNCTION 8. MODERATE PULMONARY HYPERTENSION WITH RIGHT VENTRICULAR SYSTOLIC PRESSURE OF 55-60 mmHg TECHNOLOGIST: CHIP ESTEBAN
--- NOTE | 2022-09-23 06:52 | P.PN ---
Date of Service: 09/23/22 Subjective: feeling okay today; trouble sleeping overnight 3 episodes of diarrhea overnight; no abdominal pain breathing continues to improve in and out of afib, HR in 110s this morning ROS: 10 point ROS as noted above, otherwise negative Physical Exam: GEN: Alert, oriented, NAD HEENT: Normal conjunctiva, sclera anicteric CV: Irregularly Irregular rate and rhythm, no edema, V/ murmur Pulm: mildly-labored respirations on 4.5L NC, diminished at bases b/l,R>L ABD: Soft, nontender, nondistended Neuro: normal affect, moves all extremities vitals reviewed Problem List: Chest pain\Palpitations\tachycardia h/o CAD\CABGx3 h/o endocarditis s/p MV & TV replacement 06/2021 h/o severe tricuspid regurgitation, severe pulmonary hypertension Chronic loculated R Pleural Effusion ESRD on HD Mild hyponatremia Hypertension Hyperlipidemia ANDRY acute on chronic hypoxemic respiratory failure Chest pain\Palpitations\tachycardia h/o CAD\CABG h/o severe tricuspid regurgitation, severe pulmonary hypertension Patient given metoprolol IV. continue BID PO Troponins elevated x3. Monitor on Telemetry Last stress test was negative for ischemia back in June 2022 acute on chronic hypoxemia likely multifactorial suspect mostly secondary to volume overload, needing HD; on top of moderate, chronic R pleural effusion possibly severe pulm htn playing a role cardiology consulted for assistance with NSTEMI, severe TR, severe pulm htn R pleural effusion, appears loculated and chronic pulm consulted, CT chest done as noted below TTE (09/22/22) 45-50% LVEF mild global hypokinesis, severely dilated RV with moderate dysfunction, severe TR, moderate pulmonic insufficiency LAE, severe diastolic dysfunction, moderate pulm hypertension with RVSP of 55-60mmHG started IV amiodarone (09/22 evening) per cardiology Chronic loculated R Pleural Effusion CXR (09/20): Chronic loculated moderate right pleural effusion Chest u/s (09/21): Pleural effusion, with component of possible loculation versus cystic lung parenchymal changes CTA chest (09/22): No evidence of pulmonary thromboembolism. Moderate loculated right pleural effusion with atelectasis/infiltrate right lung base. Mild to moderate CHF pattern is suspected Pulmonology consulted no antibiotics, does not suspect infection recommends outpatient f/u with CT surgery for evaluation/planning on treatment for loculated pleural effusion outside hospital records requested from last time they tapped it ESRD mild hyponatremia Nephrology consulted. HD MWF this week then back to normal schedule Hypertension. Stable. Continue home medications Hyperlipidemia. Continue statin. ANDRY. Continue home medication. VTE: Heparin sq Code: Full Dispo: Home, ~2 days Transfered to ICU 09/21 due to worsening hypoxia improving, ok to downgrade today
[2022-09-23] MEDS: INSULIN -REGULAR HUMAN 50 UNIT/0.5 ML ML SQ SCH ×4 (07:30→20:34)
[2022-09-23] MEDS: METOPROLOL TAR 50 MG TAB PO SCH ×2 (08:07→20:33)
[2022-09-23] MEDS: Mupirocin NASAL 2 APPL/1 GM TUBE NAS SCH ×2 (08:07→20:34)
[2022-09-23] MEDS: AMIODARONE HCL 200 MG TAB PO SCH ×2 (16:16→21:19)
--- NOTE | 2022-09-23 16:59 | PN ---
Date of Progress Note: 09/23/2022 Subjective: The patient was admitted to the hospital with questionable pneumonia, respiratory failur e, over volume. The patient had atrial fibrillation with junctional tach, started on amiodarone over the night. CT was done yesterday, did not show any PE, has localized pleural effusion. Physical Examination: Vital Signs: When I saw the patient, blood pressure 113/62, pulse of 111, irregular. Chest: Decreased entry on the right base. Heart: S1, S2, systolic murmur. Abdomen: Soft, nontender. Extremities: No edema. Neurologic: Alert. No focality. Laboratory Data: WBC 3.5, H and H 11.2/34.2. Sodium 132, potassium 3.7, bicarb 27, BUN 27, creatini ne 3.5. Calcium 8.3, magnesium 2.3, phosphorus 4.5. Current Medications: Include amiodarone drip, heparin, metoprolol 100 b.i.d., Zofran. Assessment And Plan: 1.End-stage renal disease with over volume. Currently patient looks on the normal volume side. The patient received dialysis yesterday post contrast. I can dialyze the patient tomorrow to go back to her schedule and then we will continue dialysis as Tuesday, Tuesday, Tuesday. 2.Hypertension, controlled, optimal. Metoprolol has been increased for rate control. 3.Anemia of chronic kidney disease. No need for MELA. 4.Secondary hyperpara, stable. 5.Localized pleural effusion. Waiting for the record from [facility]. Continue followup with Frank greer MA/EVAN Voice ID: [id number] Report ID: [id number]
--- NOTE | 2022-09-23 17:40 | EKG ---
Test Date: 2022-09-23 Test Time: 04:09:23 Mixer Lever Operator: EDDI MEASUREMENT RESULTS: Intervals: Rate: 87 IL: QRSD: 114 QT: 446 QTc: 536 [place]: P: IL: QRS: 15 T: 240 INTERPRETIVE STATEMENTS: Demand pacemaker, interpretation is based on intrinsic rhythm Undetermined rhythm Incomplete right bundle branch block ST & T wave abnormality, consider inferior ischemia ST & T wave abnormality, consider anterolateral ischemia Prolonged QT Abnormal ECG Compared to ECG 09/21/2022 13:08:06 Accelerated junctional rhythm no longer present ST (T wave) deviation still present Possible ischemia still present Electronically Signed On 09-23-22 17:39:06 CDT by Bradley Santamaria
[2022-09-24 04:21] LABS: Lymphocytes % 25.8 % (15.3-44.8); MCV 99.2 fL (80-100); MPV 8.5 fL (7.6-11.3); RBC Red Blood Cell Count 3.23 M/uL (3.86-4.86)
[2022-09-24 04:46] LABS: Bilirubin Total 0.7 mg/dL (0.2-1.0); Magnesium 2.5 mg/dL (1.6-2.4); Protein, Total 8.4 g/dL (6.4-8.2)
--- NOTE | 2022-09-24 07:10 | P.PN ---
Date of Service: 09/24/22 Subjective: feeling a little better today palpitations less severe today junctional tachy/ +a flutter yesterday on amiodarone SOB with exertion states only uses oxygen at night at home, now only able to walk a few feet with 4-5 L NC before short of breath ROS: 10 point ROS as noted above, otherwise negative Physical Exam: GEN: Alert, oriented, NAD HEENT: Normal conjunctiva, sclera anicteric CV: Irregularly Irregular rate and rhythm, no edema, V/ murmur Pulm: mildly-labored respirations on 4L NC, diminished at bases b/l,R>L ABD: Soft, nontender, nondistended Neuro: normal affect, moves all extremities vitals reviewed Problem List: Chest pain\Palpitations\tachycardia volume overload secondary to ESRD and severe diastolic CHF h/o CAD s/p CABGx3 h/o endocarditis s/p MV & TV repair 06/2021 h/o severe tricuspid regurgitation, severe pulmonary hypertension Chronic loculated R Pleural Effusion ESRD on HD Mild hyponatremia Hypertension Hyperlipidemia ANDRY acute on chronic hypoxemic respiratory failure volume overload secondary to ESRD and severe diastolic CHF Chest pain\Palpitations\tachycardia h/o CAD s/p CABG h/o endocarditis s/p MV & TV repair 06/2021 severe tricuspid regurgitation, severe pulmonary hypertension Troponins elevated x3. Monitor on Telemetry Last stress test was negative for ischemia back in June 2022 acute on chronic hypoxemia likely multifactorial suspect mostly secondary to volume overload, needing HD; on top of moderate, chronic R pleural effusion cardiology consulted for assistance with NSTEMI, severe TR, severe pulm htn; h/o endocarditis and MV/TV repair 06/2021 R pleural effusion, appears loculated and chronic pulm consulted, CT chest done as noted below TTE (09/22/22) 45-50% LVEF mild global hypokinesis, severely dilated RV with moderate dysfunction, severe TR, moderate pulmonic insufficiency LAE, severe diastolic dysfunction, moderate pulm hypertension with RVSP of 55-60mmHG started IV amiodarone (09/22 evening) per cardiology; transtioned to PO 09/23 Patient states she mainly only uses oxygen during the night at home currently on 4-5LNC with dyspnea on minimal exertion Chronic loculated R Pleural Effusion CXR (09/20): Chronic loculated moderate right pleural effusion Chest u/s (09/21): Pleural effusion, with component of possible loculation versus cystic lung parenchymal changes CTA chest (09/22): No evidence of pulmonary thromboembolism. CXR (09/24): stable Moderate loculated right pleural effusion with atelectasis/infiltrate right lung base. Mild to moderate CHF pattern is suspected Pulmonology consulted no antibiotics, does not suspect infection recommends outpatient f/u with CT surgery for evaluation/planning on treatment for loculated pleural effusion outside hospital records requested from last time they tapped it ESRD mild hyponatremia Nephrology consulted. HD MWF this week then back to normal schedule Hypertension. Stable. Continue home medications Hyperlipidemia. Continue statin. ANDRY. Continue home medication. VTE: Heparin sq Code: Full Dispo: Home, ~2 days Downgraded from ICU overnight Patient states she mainly only uses oxygen during the night at home continues to need more diuresis
[2022-09-24] MEDS: INSULIN -REGULAR HUMAN 50 UNIT/0.5 ML ML SQ SCH ×4 (07:30→21:00)
[2022-09-24] MEDS: METOPROLOL TAR 50 MG TAB PO SCH ×2 (08:22→21:27)
[2022-09-24] MEDS: AMIODARONE HCL 200 MG TAB PO SCH ×2 (08:22→21:28)
[2022-09-24] MEDS: Mupirocin NASAL 2 APPL/1 GM TUBE NAS SCH ×2 (08:22→21:30)
--- NOTE | 2022-09-24 08:22 | RAD REPORT ---
[facility] 7[facility]57 am CLINICAL HISTORY: f/u R pleural effusion COMPARISON: Chest Single View dated 09/21/2022; Chest Single View dated 09/20/2022; Chest Single View dated 09/16/2022; Chest Single View dated 07/21/2022; Chest Angio dated 09/22/2022 TECHNIQUE: Portable AP view of the chest. FINDINGS: Stable pronounced cardiomegaly and mild central interstitial prominence. Stable right pleu ral effusion with underlying airspace opacification. Similar bulging contour along the lateral basal/ subpulmonic component of the effusion may represent loculation. No pneumothorax or effusion. The me diastinal contours are unremarkable. Sequelae of mitral valve prosthesis and right chest wall pacer/ AICD again seen. IMPRESSION: Stable findings as above.
--- NOTE | 2022-09-24 17:25 | P.PN ---
Subjective Date of Service: 09/24/22 Chief Complaint: Palpitations, chest pain, elevated troponin Subjective: Other (Received HD today.) Physical Examination - Vital Signs Temperature: 98.0 F Blood Pressure: 134/86 Pulse: 109 Respirations: 16 Pulse Ox (%): 92 - Physical Exam General: Other (Chronically ill appearing) HEENT: Atraumatic, Normocephalic Neck: Supple, JVD not distended Respiratory: Other (Symmetric chest expansion) Cardiovascular: No rubs, No murmurs Gastrointestinal: Soft and benign, No rebound Musculoskeletal: No clubbing Integumentary: No warmth Neurological: Normal speech, Normal tone Urinary: Other (No bladder distention) External genitalia: Deferred Rectal: Deferred Assessment And Plan - Plan 1. End-stage renal disease. HD received today, cont MWF sked. 2. Volume overload. HD as above. 3. Hypertension. BP meds adjusted. 4. Anemia of chronic kidney disease. Monitor H/H. 5. Renal osteodystrophy. Monitor serum Ca & Phos. 6. Chronic loculated R pleural effusion. Per other services. Physician Review: Patient Assessed, Agree with Above Assessment and Plan
--- NOTE | 2022-09-25 07:03 | P.PN ---
Date of Service: 09/25/22 Subjective: feeling a little better breathing slowly improving able to ambulate a few more steps than yesterday before getting SOB + a flutter yesterday ROS: 10 point ROS as noted above, otherwise negative Physical Exam: GEN: Alert, oriented, NAD HEENT: Normal conjunctiva, sclera anicteric CV: Irregularly Irregular rate and rhythm, no edema, V/ murmur Pulm: mildly-labored respirations on 4L NC, diminished at bases b/l,R>L ABD: Soft, nontender, nondistended Neuro: normal affect, moves all extremities, follows commands vitals reviewed Problem List: Acute on chronic hypoxemic respiratory failure Volume overload secondary to ESRD and severe diastolic CHF Paroxysmal afib, chronic h/o CAD s/p CABG h/o endocarditis s/p MV & TV repair 06/2021 Severe tricuspid regurgitation, severe pulmonary hypertension Chronic loculated R Pleural Effusion ESRD on HD Mild hyponatremia Hypertension Hyperlipidemia ANDRY acute on chronic hypoxemic respiratory failure volume overload secondary to ESRD and severe diastolic CHF Paroxysmal afib, chronic h/o CAD s/p CABG h/o endocarditis s/p MV & TV repair 06/2021 severe tricuspid regurgitation, severe pulmonary hypertension Troponins elevated x3. Monitor on Telemetry Last stress test was negative for ischemia back in June 2022 acute on chronic hypoxemia likely multifactorial suspect mostly secondary to volume overload, needing HD; on top of moderate, chronic R pleural effusion cardiology consulted for assistance with NSTEMI, severe TR, severe pulm htn; h/o endocarditis and MV/TV repair 06/2021 R pleural effusion, appears loculated and chronic pulm consulted, CT chest done as noted below TTE (09/22/22) 45-50% LVEF mild global hypokinesis, severely dilated RV with moderate dysfunction, severe TR, moderate pulmonic insufficiency LAE, severe diastolic dysfunction, moderate pulm hypertension with RVSP of 55-60mmHG started IV amiodarone (09/22 evening) per cardiology; transtioned to PO 09/23 slight improvement of heart rate Patient states she mainly only uses oxygen during the night at home currently on 4-5LNC with dyspnea on minimal exertion, improving f/u EKG ordered Chronic loculated R Pleural Effusion CXR (09/20): Chronic loculated moderate right pleural effusion Chest u/s (09/21): Pleural effusion, with component of possible loculation versus cystic lung parenchymal changes CTA chest (09/22): No evidence of pulmonary thromboembolism. CXR (09/24): stable Moderate loculated right pleural effusion with atelectasis/infiltrate right lung base. Mild to moderate CHF pattern is suspected Pulmonology consulted no antibiotics, does not suspect infection recommends outpatient f/u with CT surgery for evaluation/planning on treatment for loculated pleural effusion outside hospital records requested from last time they tapped it ESRD mild hyponatremia Nephrology consulted. HD MWF this week then back to normal schedule ~2.5L removed from HD 09/24 Hypertension. Stable. Continue home medications Hyperlipidemia. Continue statin. ANDRY. Continue home medication. VTE: Heparin sq Code: Full Dispo: Home, ~1-2 days waiting on improvement of respirations/dyspnea, and heart rate/rhythm continues to need more diuresis
[2022-09-25] MEDS: INSULIN -REGULAR HUMAN 50 UNIT/0.5 ML ML SQ SCH ×4 (07:30→21:00)
[2022-09-25] MEDS: Mupirocin NASAL 2 APPL/1 GM TUBE NAS SCH ×2 (08:06→21:00)
[2022-09-25] MEDS: AMIODARONE HCL 200 MG TAB PO SCH ×2 (08:07→21:04)
[2022-09-25] MEDS: METOPROLOL TAR 50 MG TAB PO SCH ×2 (08:07→21:04)
[2022-09-25 11:48] LABS: Hematocrit 35.3 % (36.0-45.0); MCV 99.2 fL (80-100); MPV 8.7 fL (7.6-11.3); RBC Red Blood Cell Count 3.56 M/uL (3.86-4.86)
[2022-09-25 12:02] LABS: Magnesium 2.5 mg/dL (1.6-2.4); Potassium 3.8 mEq/L (3.5-5.1)
[2022-09-25] MEDS: MORPHINE 2 MG/ML SYR IV PRN (14:09)
--- NOTE | 2022-09-25 15:28 | P.PN ---
Subjective Date of Service: 09/25/22 Chief Complaint: Palpitations, chest pain, elevated troponin Subjective: Other (Received HD yesterday.) Physical Examination - Vital Signs Temperature: 97.6 F Blood Pressure: 125/80 Pulse: 97 Respirations: 16 Pulse Ox (%): 96 - Physical Exam General: Other (Chronically ill appearing) HEENT: Atraumatic, Normocephalic Neck: Supple Respiratory: Other (Symmetric chest expansion) Cardiovascular: No rubs, No murmurs Gastrointestinal: Soft and benign Musculoskeletal: No clubbing Integumentary: No warmth Neurological: Normal speech, Normal tone Urinary: Other (No bladder distention) External genitalia: Deferred Rectal: Deferred Assessment And Plan - Plan 1. End-stage renal disease. HD received yesterday, cont MWF sked. 2. Volume overload. HD as above. 3. Hypertension. BP meds adjusted. 4. Anemia of chronic kidney disease. Monitor H/H. 5. Renal osteodystrophy. Monitor serum Ca & Phos. 6. Chronic loculated R pleural effusion. Per other services. Physician Review: Patient Assessed, Agree with Above Assessment and Plan
--- NOTE | 2022-09-26 07:08 | P.PN ---
Date of Service: 09/26/22 Subjective: felt short of breath +palpitations when they tried lowering her oxygen today; sats low 90s 1 episode of chest pain overnight, improved now able to ambulate around bedside slightly easier / less dyspnea HR improving ROS: 10 point ROS as noted above, otherwise negative Physical Exam: GEN: Alert, oriented, NAD HEENT: Normal conjunctiva, sclera anicteric CV: Irregularly Irregular rate and rhythm, no edema, V/ murmur Pulm: mildly-labored respirations on 4L NC, diminished at bases b/l,R>L ABD: Soft, nontender, nondistended Neuro: normal affect, moves all extremities, follows commands vitals reviewed Problem List: Acute on chronic hypoxemic respiratory failure Volume overload secondary to ESRD and severe diastolic CHF Paroxysmal afib, chronic h/o CAD s/p CABG h/o endocarditis s/p MV & TV repair 06/2021 Severe tricuspid regurgitation, severe pulmonary hypertension Chronic loculated R Pleural Effusion ESRD on HD Mild hyponatremia Hypertension Hyperlipidemia ANDRY acute on chronic hypoxemic respiratory failure volume overload secondary to ESRD and severe diastolic CHF Paroxysmal afib, chronic h/o CAD s/p CABG h/o endocarditis s/p MV & TV repair 06/2021 severe tricuspid regurgitation, severe pulmonary hypertension Troponins elevated x3. Monitor on Telemetry Last stress test was negative for ischemia back in June 2022 acute on chronic hypoxemia likely multifactorial suspect mostly secondary to volume overload, needing HD; on top of moderate, chronic R pleural effusion cardiology consulted for assistance with NSTEMI, severe TR, severe pulm htn; h/o endocarditis and MV/TV repair 06/2021 R pleural effusion, appears loculated and chronic pulm consulted, CT chest done as noted below TTE (09/22/22) 45-50% LVEF mild global hypokinesis, severely dilated RV with moderate dysfunction, severe TR, moderate pulmonic insufficiency LAE, severe diastolic dysfunction, moderate pulm hypertension with RVSP of 55-60mmHG started IV amiodarone (09/22 evening) per cardiology; transtioned to PO 09/23 slight improvement of heart rate Patient states she mainly only uses oxygen during the night at home, and as needed during the day currently on 4LNC with dyspnea on minimal exertion, improving f/u EKG ordered Chronic loculated R Pleural Effusion CXR (09/20): Chronic loculated moderate right pleural effusion Chest u/s (09/21): Pleural effusion, with component of possible loculation versus cystic lung parenchymal changes CTA chest (09/22): No evidence of pulmonary thromboembolism. CXR (09/24): stable Moderate loculated right pleural effusion with atelectasis/infiltrate right lung base. Mild to moderate CHF pattern is suspected Pulmonology consulted no antibiotics, does not suspect infection recommends outpatient f/u with CT surgery for evaluation/planning on treatment for loculated pleural effusion outside hospital records requested from last time they tapped it ESRD mild hyponatremia Nephrology consulted. HD MWF this week then back to normal schedule ~2.5L removed from HD 09/24 next dialysis scheduled for tomorrow 09/27 possibly DC after dialysis pending improvement of respirations/dyspnea, and heart rate/rhythm Hypertension. Stable. Continue home medications Hyperlipidemia. Continue statin. ANDRY. Continue home medication. VTE: Heparin sq Code: Full Dispo: Home, ~1-2 days possibly discharge after dialysis tomorrow, waiting on improvement of respirations/dyspnea, and heart rate/rhythm DaughterStacey updated over phone on 09/26
[2022-09-26] MEDS: INSULIN -REGULAR HUMAN 50 UNIT/0.5 ML ML SQ SCH ×4 (07:30→21:54)
[2022-09-26 08:38] LABS: Albumin 3.2 g/dL (3.4-5.0); Magnesium 2.5 mg/dL (1.6-2.4); Phosphorus 5.6 mg/dL (2.5-4.9); Potassium 4.5 mEq/L (3.5-5.1)
[2022-09-26] MEDS: Mupirocin NASAL 2 APPL/1 GM TUBE NAS SCH (09:00)
[2022-09-26] MEDS: METOPROLOL TAR 50 MG TAB PO SCH ×2 (10:30→21:04)
[2022-09-26] MEDS: AMIODARONE HCL 200 MG TAB PO SCH ×2 (10:31→21:05)
--- NOTE | 2022-09-26 13:08 | P.PN ---
Subjective Date of Service: 09/26/22 Chief Complaint: Palpitations, chest pain, elevated troponin Subjective: No new changes Physical Examination - Vital Signs Temperature: 97.6 F Blood Pressure: 138/84 Pulse: 105 Respirations: 18 Pulse Ox (%): 94 - Physical Exam General: Other (Chronically ill appearing) HEENT: Atraumatic, Normocephalic Neck: Supple, JVD not distended Respiratory: Other (Symmetric chest expansion) Cardiovascular: No rubs, No murmurs Gastrointestinal: Soft and benign, No guarding Musculoskeletal: No clubbing, Swelling Integumentary: No warmth Neurological: Normal speech, Normal tone Urinary: Other (No bladder distention) External genitalia: Deferred Rectal: Deferred Assessment And Plan - Plan 1. End-stage renal disease. HD tomorrow per q MWF sked. 2. Volume overload. HD as above. 3. Hypertension. BP meds adjusted. 4. Anemia of chronic kidney disease. Monitor H/H. 5. Renal osteodystrophy. Monitor serum Ca & Phos. 6. Chronic loculated R pleural effusion. Per other services. Physician Review: Patient Assessed, Agree with Above Assessment and Plan
--- NOTE | 2022-09-26 20:57 | PN ---
Date of Progress Note: 09/26/2022 Subjective: The patient seen by bedside. Doing clinically well. Does not have any chest pain. No shortness of breath, orthopnea. With dialysis, she appears to be volemic, speaking full sentences an d doing much better. Review of Systems: No chest pain, shortness of breath, orthopnea, cough. No nausea, vomiting, diarrhea. No abdominal p ain. No dysuria, polyuria, or urinary urgency. All other systems reviewed and they were negative. Physical Examination: Vital Signs: Reviewed. Head and Neck: Pupils are equal, reactive to light. Intact eye movements. No cervical lymphadenopa thy. Mild JVD elevation. Lungs: Decreased breathing sounds bilaterally. No accessory muscle use or muscle retraction. Heart: Irregular. No extra sounds. Abdomen: Soft, nontender. Bowel sounds positive. No organomegaly. No masses or hernia. No rigidi ty or rebound. Extremities: No clubbing or cyanosis. Intact pulses. Skin: No rash. Neurologic: Alert, awake, oriented x3. No acute focal deficits appreciated. Investigations: Labs were reviewed. Assessment And Recommendations: 1.Acute hypoxic respiratory failure due to acute on chronic diastolic heart failure exacerbation and right ventricle failure. Needs a strict fluid management via dialysis and low-salt diet. 2.Severe tricuspid regurgitation. Plan to refer to see Surgery post discharge. 3.Atrial fibrillation with a ventricular response. Now, it is controlled. I will continue amiodaro ne and metoprolol and plan for NIMCO-guided cardioversion. She will need to be placed also on a low-dose anticoagulant like Eliquis 2 .5 mg twice a day. SR/MODL Voice ID: [id number] Report ID: [id number]
[2022-09-26] MEDS: APIXABAN 2.5 MG TABLET PO SCH (21:05)
[2022-09-26] MEDS: MORPHINE 2 MG/ML SYR IV PRN (21:15)
[2022-09-27 06:39] LABS: Hematocrit 34.2 % (36.0-45.0); MPV 8.8 fL (7.6-11.3); RBC Red Blood Cell Count 3.42 M/uL (3.86-4.86)
[2022-09-27 06:53] LABS: Albumin 3.2 g/dL (3.4-5.0); Magnesium 2.6 mg/dL (1.6-2.4); Phosphorus 6.6 mg/dL (2.5-4.9); Potassium 5.1 mEq/L (3.5-5.1)
--- NOTE | 2022-09-27 07:13 | P.PN ---
Date of Service: 09/27/22 Subjective: doing okay, palpitations remain, but feels like they're improving breathing slowly improving, feels somewhat run down today no acute events overnight ROS: 10 point ROS as noted above, otherwise negative Physical Exam: GEN: Alert, oriented, NAD HEENT: Normal conjunctiva, sclera anicteric CV: Irregularly Irregular rate and rhythm, no edema, V/ murmur Pulm: mildly-labored respirations on 4.5L NC, diminished at bases b/l,R>L ABD: Soft, nontender, nondistended Neuro: normal affect, moves all extremities, follows commands vitals reviewed Problem List: Acute on chronic hypoxemic respiratory failure Volume overload secondary to ESRD and severe diastolic CHF Paroxysmal afib, chronic h/o CAD s/p CABG h/o endocarditis s/p MV & TV repair 06/2021 Severe tricuspid regurgitation, severe pulmonary hypertension Chronic loculated R Pleural Effusion ESRD on HD Mild hyponatremia Hypertension Hyperlipidemia ANDRY acute on chronic hypoxemic respiratory failure volume overload secondary to ESRD and severe diastolic CHF Paroxysmal afib, chronic h/o CAD s/p CABG h/o endocarditis s/p MV & TV repair 06/2021 severe tricuspid regurgitation, severe pulmonary hypertension Troponins elevated x3. Monitor on Telemetry Last stress test was negative for ischemia back in June 2022 acute on chronic hypoxemia likely multifactorial suspect mostly secondary to volume overload, needing HD; on top of moderate, chronic R pleural effusion cardiology consulted for assistance with NSTEMI, severe TR, severe pulm htn; h/o endocarditis and MV/TV repair 06/2021 R pleural effusion, appears loculated and chronic pulm consulted, CT chest done as noted below TTE (09/22/22) 45-50% LVEF mild global hypokinesis, severely dilated RV with moderate dysfunction, severe TR, moderate pulmonic insufficiency LAE, severe diastolic dysfunction, moderate pulm hypertension with RVSP of 55-60mmHG started IV amiodarone (09/22 evening) per cardiology; transtioned to PO 09/23 slight improvement of heart rate Patient states she mainly only uses oxygen during the night at home, and as needed during the day currently on 4LNC with dyspnea on minimal exertion, improving cardiology started eliquis BID (09/26) possible NIMCO-guided cardioversion per cardio in future patient states she was taken off anticoagulation due to bleeding - of dialysis sites, had to be emergently transferred for vascular surgery in the past does not take any anticoagulation, nor aspirin at home for > 1year will discuss further wit Cardiology / Nephrology Chronic loculated R Pleural Effusion CXR (09/20): Chronic loculated moderate right pleural effusion Chest u/s (09/21): Pleural effusion, with component of possible loculation versus cystic lung parenchymal changes CTA chest (09/22): No evidence of pulmonary thromboembolism. CXR (09/24): stable Moderate loculated right pleural effusion with atelectasis/infiltrate right lung base. Mild to moderate CHF pattern is suspected Pulmonology consulted no antibiotics, does not suspect infection recommends outpatient f/u with CT surgery for evaluation/planning on treatment for loculated pleural effusion outside hospital records requested from last time they tapped it repeat CXR (09/27) ordered ESRD mild hyponatremia Nephrology consulted. HD MWF this week then back to normal schedule ~2.5L removed from HD 09/24 next dialysis tentatively scheduled for today 09/27 sodium downtrending Hypertension. Stable. Continue home medications Hyperlipidemia. Continue statin. ANDRY. Continue home medication. VTE: Eliquis Code: Full Dispo: Home, ~1 days possibly discharge tomorrow, waiting on improvement of respirations/dyspnea, sodium. Discuss with cardio./nephro Daughter, Stacey updated over phone on 09/26
[2022-09-27] MEDS: INSULIN -REGULAR HUMAN 50 UNIT/0.5 ML ML SQ SCH ×4 (07:30→21:00)
[2022-09-27] MEDS: METOPROLOL TAR 50 MG TAB PO SCH ×2 (09:00→21:59)
[2022-09-27] MEDS: AMIODARONE HCL 200 MG TAB PO SCH ×2 (09:42→21:59)
[2022-09-27] MEDS: APIXABAN 2.5 MG TABLET PO SCH ×2 (09:42→21:59)
--- NOTE | 2022-09-27 12:39 | RAD REPORT ---
EXAM DESCRIPTION: Samuel Single View09/27/2022 12:23 pm CLINICAL HISTORY: Chest pain COMPARISON: September 24, 2022 FINDINGS: No significant change in the moderate loculated right pleural effusion with basilar atelec tasis Left lung appears clear Heart remains enlarged. Postsurgical changes involve the chest. Pacemaker leads place but
--- NOTE | 2022-09-27 17:15 | EKG ---
Test Date: 2022-09-25 Test Time: 10:49:10 Track Repairer Helper: NEERAJ MEASUREMENT RESULTS: Intervals: Rate: 91 PA: QRSD: 116 QT: 414 QTc: 509 [place]: P: PA: QRS: 3 T: 217 INTERPRETIVE STATEMENTS: Demand pacemaker, interpretation is based on intrinsic rhythm Sinus tachycardia with AV dissociation and Accelerated Junctional rhythm with fusion complexes Right bundle branch block T wave abnormality, consider inferolateral ischemia Abnormal ECG Compared to ECG 09/25/2022 10:47:47 Accelerated junctional rhythm now present Fusion complex(es) now present AV dissociation now present T-wave abnormality still present Possible ischemia still present Electronically Signed On 09-27-22 17:11:43 CDT by Bradley Santamaria
--- NOTE | 2022-09-27 17:15 | EKG ---
Test Date: 2022-09-25 Test Time: 10:47:47 Clinical Asst: NEERAJ MEASUREMENT RESULTS: Intervals: Rate: 93 [place]: QRSD: 120 QT: 408 QTc: 507 [place]: P: [place]: QRS: -7 T: 219 INTERPRETIVE STATEMENTS: Demand pacemaker, interpretation is based on intrinsic rhythm Undetermined rhythm Right bundle branch block T wave abnormality, consider inferolateral ischemia Abnormal ECG Compared to ECG 09/23/2022 04:09:23 Right bundle-branch block now present T-wave abnormality now present Incomplete right bundle-branch block no longer present ST (T wave) deviation no longer present Prolonged QT interval no longer present Possible ischemia still present Electronically Signed On 09-27-22 17:11:46 CDT by Bradley Santamaria
[2022-09-28] MEDS ORDERED: MORPHINE 2 MG/ML SYR IV ONE ×2 (01:50→20:44)
--- NOTE | 2022-09-28 04:43 | PN ---
Date of Progress Note: 09/27/2022 Chief Complaint: Palpitation and chest pain. Subjective: Patient was admitted to the hospital because she developed new onset of palpitation asso ciated with chest pain, which was substernal and she was found to have elevated troponin level. Ches t x-ray showed clear lungs and presence of the pleural effusion, which was chronic and previously pre sent on a radiology imaging test. The patient had CT scan done for possible PE during this admission and Pulmonary Service is following. The patient has history of congestive heart failure with systol ic and diastolic dysfunction, severe pulmonary hypertension. The patient today is undergoing dialysi s and ultrafiltration was ordered to remove up to 2.5 kilos as tolerated. The patient has some mild volume overload, although chest x-ray did not show pulmonary infiltrates and she does not have lower extremity edema. Review of Systems: Patient denies any nausea, vomiting. Denies fever or chills. Physical Examination: General: Patient appears chronically ill. Neck: Supple. No JVD present. JVD not distended. Cardiovascular: No pericardial or friction rub. Abdomen: Soft, benign. Extremities: No edema. Impression And Plan: 1.End-stage renal disease. Dialysis is scheduled for today. Ultrafiltration will be obtained and b lood pressure is stable during dialysis. Plan is to monitor blood pressure and adjust ultrafiltratio n according to blood pressures. 2.Renal osteodystrophy. Continue to monitor calcium and phosphorus. Adjust binders. 3.Anemia of chronic kidney disease. Monitor H and H. 4.Chronic loculated right pleural effusion per Primary Service. 5.Palpitation and atrial fibrillation. Patient was found to have elevated troponin. Further recomm endation from Cardiology. Patient has severe pulmonary hypertension. Further recommendation from Cardiology and Pulmonary Serv ice. EB/MODL Voice ID: [id number] Report ID: [id number]
[2022-09-28 06:39] LABS: Hematocrit 33.7 % (36.0-45.0); MCV 100.1 fL (80-100); MPV 8.5 fL (7.6-11.3); RBC Red Blood Cell Count 3.36 M/uL (3.86-4.86)
[2022-09-28 06:42] LABS: Magnesium 2.5 mg/dL (1.6-2.4); Potassium 4.6 mEq/L (3.5-5.1)
[2022-09-28] MEDS: INSULIN -REGULAR HUMAN 50 UNIT/0.5 ML ML SQ SCH ×4 (07:30→20:31)
[2022-09-28] MEDS: METOPROLOL TAR 50 MG TAB PO SCH ×2 (08:18→20:30)
[2022-09-28] MEDS: APIXABAN 2.5 MG TABLET PO SCH ×2 (08:19→20:32)
[2022-09-28] MEDS: AMIODARONE HCL 200 MG TAB PO SCH ×2 (08:19→20:30)
--- NOTE | 2022-09-28 14:22 | PN ---
Date of Progress Note: 09/28/2022 Subjective: The patient was admitted with pleural effusion, respiratory failure. Workup showed loca lized pleural effusion. Physical Examination: Vital Signs: Blood pressure 112/65, pulse of 70, afebrile. Chest: Decreased entry on the left side. Heart: S1, S2. Systolic murmur. Abdomen: Soft, nontender. Extremity: No edema. Neurologic: Alert. No focality. Laboratory Data: Hemoglobin 11. Chest x-ray, right pleural perfusion. Sodium 131, potassium 4.6, b icarb 25, BUN 44, creatinine 4.9, calcium 8.5, magnesium 2.5. Current Medications: The patient on include; 1.Heparin. 2.Metoprolol. 3.Zofran. 4.Morphine. Assessment And Plan: 1.End-stage renal disease, currently on the over volume side. I am going to continue to challenge t he patient and we will follow up. We will arrange for the patient for dialysis tomorrow. 2.Hypertension, currently blood pressure on the lower side. We will utilize blood pressure for more ultrafiltration. 3.Over volume with marginal low blood pressure. We will use blood pressure for ultrafiltration, jaylin p current metoprolol for rate control. We will use sodium module and low temperature to establish be tter blood pressure on the dialysis and we will follow up. 4.Anemia of chronic kidney disease. No need for MELA. 5.Hyponatremia secondary to dilutional. Continue challenging. The patient will be corrected with d ialysis. 6.Pleural effusion, was not present on the record from [facility] couple of years ago. We will discuss with Pulmonary as it is localized and we will follow up. LISETH/EVAN Voice ID: [id number] Report ID: [id number]
--- NOTE | 2022-09-28 18:11 | P.PN ---
Subjective Date of Service: 09/28/22 Chief Complaint: Palpitations, chest pain, elevated troponin Patient has no new complaints. She has been tolerating 3.5 L oxygen by nasal cannula. Physical Examination - Vital Signs Temperature: 97.9 F Blood Pressure: 123/68 Pulse: 71 Respirations: 24 Pulse Ox (%): 90 Assessment And Plan - Plan Physical Exam: GEN: Alert, oriented, NAD CV: Irregularly Irregular rate and rhythm, no edema, V/ murmur Pulm: mildly-labored respirations on 4.5L NC, diminished at bases b/l,R>L ABD: Soft, nontender, nondistended Neuro: normal affect, moves all extremities, follows commands vitals reviewed Problem List: Acute on chronic hypoxemic respiratory failure Volume overload secondary to ESRD and severe diastolic CHF Paroxysmal afib, chronic h/o CAD s/p CABG h/o endocarditis s/p MV & TV repair 06/2021 Severe tricuspid regurgitation, severe pulmonary hypertension Chronic loculated R Pleural Effusion ESRD on HD Mild hyponatremia Hypertension Hyperlipidemia ANDRY acute on chronic hypoxemic respiratory failure volume overload secondary to ESRD and severe diastolic CHF Paroxysmal afib, chronic h/o CAD s/p CABG h/o endocarditis s/p MV & TV repair 06/2021 severe tricuspid regurgitation, severe pulmonary hypertension Troponins elevated x3. Monitor on Telemetry Last stress test was negative for ischemia back in June 2022 acute on chronic hypoxemia likely multifactorial suspect mostly secondary to volume overload, needing HD; on top of moderate, chronic R pleural effusion cardiology consulted for assistance with NSTEMI, severe TR, severe pulm htn; h/ o endocarditis and MV/TV repair 06/2021 R pleural effusion, appears loculated and chronic pulm consulted, CT chest: Loculated right pleural effusion. TTE (09/22/22) 45-50% LVEF mild global hypokinesis, severely dilated RV with moderate dysfunction, severe TR, moderate pulmonic insufficiency LAE, severe diastolic dysfunction, moderate pulm hypertension with RVSP of 55-60mmHG started IV amiodarone (09/22 evening) per cardiology; transtioned to PO 09/23 slight improvement of heart rate Patient states she mainly only uses oxygen during the night at home, and as needed during the day currently on 3.5LNC with dyspnea on minimal exertion, improving cardiology started eliquis BID (09/26) possible NIMCO-guided cardioversion per cardio in the near future patient states she was taken off anticoagulation due to bleeding - of dialysis sites, had to be emergently transferred for vascular surgery in the past does not take any anticoagulation, nor aspirin at home for > 1year She has been started on low-dose Eliquis by cardiology. Chronic loculated R Pleural Effusion CXR (09/20): Chronic loculated moderate right pleural effusion Chest u/s (09/21): Pleural effusion, with component of possible loculation versus cystic lung parenchymal changes CTA chest (09/22): No evidence of pulmonary thromboembolism. CXR (09/24): stable Moderate loculated right pleural effusion with atelectasis/infiltrate right lung base. Mild to moderate CHF pattern is suspected Pulmonology consulted no antibiotics, does not suspect infection Dr. Cartagena recommends outpatient f/u with CT surgery for evaluation/planning on treatment for loculated pleural effusion Status post prior thoracentesis in an outside hospital. repeat CXR (09/27) ordered ESRD mild hyponatremia Nephrology is following for hemodialysis. Hyponatremia management with hemodialysis. Hypertension. Stable. Continue home medications Hyperlipidemia. Continue statin. ANDRY. Continue home medication. VTE: Eliquis Code: Full Dispo: Home.
[2022-09-28] MEDS ORDERED: LORazepam 2 MG/ML VIAL IV ONE (22:20)
[2022-09-28 23:04] LABS: Arterial Blood Carboxyhemoglob 1.5 % (0-1.5); Blood Gas Oxyhemoglobin 84.7 % (94-97)
[2022-09-29 06:02] LABS: Absolute Lymphocytes (CBC) 0.9 K/uL (0.7-4.9); Hematocrit 33.7 % (36.0-45.0); Lymphocytes % 24.9 % (15.3-44.8); MCV 100.3 fL (80-100); MPV 8.6 fL (7.6-11.3); RBC Red Blood Cell Count 3.36 M/uL (3.86-4.86)
[2022-09-29 06:14] LABS: Phosphorus 6.3 mg/dL (2.5-4.9)
[2022-09-29 06:15] LABS: Magnesium 2.5 mg/dL (1.6-2.4); Potassium 5.2 mEq/L (3.5-5.1)
[2022-09-29 06:43] LABS: Blood Morphology Comment NOT SEEN (NOT SEEN); Platelet Estimate DECR; White Blood Cell Scan OK (OK)
[2022-09-29] MEDS: INSULIN -REGULAR HUMAN 50 UNIT/0.5 ML ML SQ SCH ×4 (07:30→21:00)
[2022-09-29] MEDS: APIXABAN 2.5 MG TABLET PO SCH ×2 (08:13→21:31)
[2022-09-29] MEDS: AMIODARONE HCL 200 MG TAB PO SCH ×2 (08:13→21:31)
[2022-09-29] MEDS: METOPROLOL TAR 50 MG TAB PO SCH ×2 (08:13→21:31)
--- NOTE | 2022-09-29 11:29 | RAD REPORT ---
EXAM DESCRIPTION: RAD - Chest Single View - 09/28/2022 10:39 pm CLINICAL HISTORY: 57 years Female, shortness of breath COMPARISON: CT chest dated 06/26/2022 IMPRESSION: Right lung base opacity concerning for underlying pneumonia. Moderate right pleural effusion. No pneumothorax. Left chest pacemaker an prior median sternotomy with cardiomegaly No acute osseous abnormality. Osteopenia. Electronically signed by: Willard Casiano DO 09/28/2022 11:15 PM CDT Due to temporary technical issues with the PACS/Fluency reporting system, reports are being signed by the in house radiologist without review as a courtesy to ensure prompt reporting. The interpreting r adiologist is fully responsible for the content of the report.
--- NOTE | 2022-09-29 11:31 | PN ---
Date of Progress Note: 09/29/2022 Subjective: The patient was admitted with respiratory failure secondary to over volume, pleural effu letty. CT showed localized pleural effusion. The patient is still hypoxemic. Physical Examination: Vital Signs: Blood pressure 131/82, pulse of 97, afebrile. Chest: Decreased entry on the right base. Heart: S1, S2. Systolic murmur. Abdomen: Soft, nontender. Extremity: Trace edema. Neuro: Alert. No focality. Laboratory Data: Hemoglobin 10.8. Sodium 128, potassium 5.2, bicarb 25, BUN 65, creatinine 6, calci um 8.4, phosphorus 6.2. Current Medications: The patient on include; 1.Heparin. 2.Amiodarone. 3.Metoprolol. 4.Zofran. 5.Morphine. Assessment And Plan: 1.End-stage renal disease, over volume. We will continue to challenge the patient. We will use sod ium module and low temperature to establish better blood pressure for the ultrafiltration. 2.Anemia of chronic kidney disease. Continue MELA. 3.Secondary hyperparathyroidism, stable. 4.Over volume. We will continue to challenge the patient as above. 5.Hyperkalemia. The patient is going to be dialyzed on low potassium bath. 6.Hyponatremia secondary to dilutional. We will continue to challenge the patient. 7.Localized pleural effusion. Reviewing the data, the patient did not have the pleural effusion few years back, start having it 1 years ago, status post thoracocentesis. [facility] The patient is going to need cardiothoracic for decortication as the patient could not impr ove her oxygenation and she has a huge pleural effusion. Unfortunately without availability of cardi othoracic surgeon, we will try to transfer the patient to other facility and we will follow up. Time spent examining the patient [id number], reviewing the data, lab and radiology, discussing the case with the patient, discussing the case with Pulmonary, Dr. Cartagena, discussing the case with the hospitalist and the steam conditioner operator, nursing staff more than 35 minutes. LEIGHANN Voice ID: [id number] Report ID: [id number]
--- NOTE | 2022-09-29 14:00 | P.PN ---
Subjective Date of Service: 09/29/22 Chief Complaint: Palpitations, chest pain, elevated troponin Patient has no new complaints. She is currently requiring 5 L O2. Her O2 requirement has increased. Physical Examination - Vital Signs Temperature: 97.2 F Blood Pressure: 131/78 Pulse: 90 Respirations: 16 Pulse Ox (%): 94 Assessment And Plan - Plan Physical Exam: GEN: Alert, oriented, NAD CV: Irregularly Irregular rate and rhythm, no edema, V/ murmur Pulm: diminished at bases b/l,R>L. ABD: Soft, nontender, nondistended Neuro: normal affect, moves all extremities, follows commands vitals reviewed Problem List: Acute on chronic hypoxemic respiratory failure Volume overload secondary to ESRD and severe diastolic CHF Paroxysmal afib, chronic h/o CAD s/p CABG h/o endocarditis s/p MV & TV repair 06/2021 Severe tricuspid regurgitation, severe pulmonary hypertension Chronic loculated R Pleural Effusion ESRD on HD Mild hyponatremia Hypertension Hyperlipidemia ANDRY acute on chronic hypoxemic respiratory failure volume overload secondary to ESRD and severe diastolic CHF Paroxysmal afib, chronic h/o CAD s/p CABG h/o endocarditis s/p MV & TV repair 06/2021 severe tricuspid regurgitation, severe pulmonary hypertension Troponins elevated x3. Monitor on Telemetry Last stress test was negative for ischemia back in June 2022 acute on chronic hypoxemia likely multifactorial Initially suspected to be secondary to volume overload and chronic right pleural effusion. Patient has undergone several days of hemodialysis and looks euvolemic. I suspect pleural effusion primarily causing the acute respiratory failure cardiology consulted for assistance with NSTEMI, severe TR, severe pulm htn; h/o endocarditis and MV/TV repair 06/2021 R pleural effusion, appears loculated and chronic pulm consulted, CT chest: Loculated right pleural effusion. TTE (09/22/22) 45-50% LVEF mild global hypokinesis, severely dilated RV with moderate dysfunction, severe TR, moderate pulmonic insufficiency LAE, severe diastolic dysfunction, moderate pulm hypertension with RVSP of 55-60mmHG started IV amiodarone (09/22 evening) per cardiology; transtioned to PO 09/23 Heart rate improved. Patient states she mainly only uses oxygen during the night at home, and as needed during the day currently on 5 LNC. possible NIMCO-guided cardioversion per cardio in the near future patient states she was taken off anticoagulation due to bleeding - of dialysis sites, had to be emergently transferred for vascular surgery in the past does not take any anticoagulation, nor aspirin at home for > 1year She has been started on low-dose Eliquis by cardiology. Chronic loculated R Pleural Effusion CXR (09/20): Chronic loculated moderate right pleural effusion Chest u/s (09/21): Pleural effusion, with component of possible loculation versus cystic lung parenchymal changes CTA chest (09/22): No evidence of pulmonary thromboembolism. CXR (09/24): stable Moderate loculated right pleural effusion with atelectasis/infiltrate right lung base. Mild to moderate CHF pattern is suspected Pulmonology at this point recommend CT surgery evaluation for pleural decortication no antibiotics, does not suspect infection Transfer to [facility] to be evaluated by CT surgery initiated ESRD Hyponatremia Nephrology is following for hemodialysis. Hyponatremia management with hemodialysis. Hypertension. Stable. Continue home medications Hyperlipidemia. Continue statin. ANDRY. Continue home medication. VTE: Eliquis Code: Full Dispo: Home.
--- NOTE | 2022-09-29 18:10 | EKG ---
Test Date: 2022-09-28 Test Time: 21:10:50 [employer] Teacher: TAYLOR MEASUREMENT RESULTS: Intervals: Rate: 70 SD: QRSD: 194 QT: 554 QTc: 598 [place]: P: SD: QRS: -77 T: 110 INTERPRETIVE STATEMENTS: Electronic ventricular pacemaker Compared to ECG 09/25/2022 10:49:10 Sinus tachycardia no longer present Accelerated junctional rhythm no longer present Fusion complex(es) no longer present AV dissociation no longer present Right bundle-branch block no longer present T-wave abnormality no longer present Possible ischemia no longer present Electronically Signed On 09-29-22 18:08:36 CDT by Bradley Santamaria
[2022-09-30 01:18] VITALS: BMI 22.8
[2022-09-30] MEDS ORDERED: MORPHINE 2 MG/ML SYR IV ONE (03:34)
[2022-09-30] MEDS: INSULIN -REGULAR HUMAN 50 UNIT/0.5 ML ML SQ SCH (07:30)
[2022-09-30 08:31] VITALS: BP 114/66; TEMP 96.8
[2022-09-30] MEDS: APIXABAN 2.5 MG TABLET PO SCH (08:33)
[2022-09-30] MEDS: METOPROLOL TAR 50 MG TAB PO SCH (08:33)
[2022-09-30] MEDS: AMIODARONE HCL 200 MG TAB PO SCH (08:33)
--- NOTE | 2022-09-30 09:18 | P.DS ---
Admission Date: 09/20/22 Discharge Date: 09/30/22 Disposition: [facility] Discharge Condition: FAIR Reason for Admission: Palpitations, chest pain, elevated troponin Brief History of Present Illness: Patient is a 67-year-old female with a past medical history significant for DM 2, ESRD, HLD, hypertension, NADRY, [place], pacemaker, CABG, paroxysmal A-fib who presents with complaint of palpitations that has been ongoing for 2 days. Patient reported that she started pain in the substernal chest area rated as 8/10 in severity and described as pressure in quality. Patient also reported episode of shortness of breath. Patient is on O2 2 L at 3 L/min at home. Patient was discharged from the hospital 3 days ago for similar symptoms. Patient reported associated signs and symptoms of weakness, fatigue and generalized malaise. Patient reported that she is on MWF dialysis schedule. Chest x-ray showed chronic loculated moderate right pleural effusion without obvious change. Patient was hospitalized for further management. Hospital Course: Diagnosis Acute on chronic hypoxemic respiratory failure Volume overload secondary to ESRD and severe diastolic CHF Paroxysmal afib, chronic h/o CAD s/p CABG h/o endocarditis s/p MV & TV repair 06/2021 Severe tricuspid regurgitation, severe pulmonary hypertension Chronic loculated R Pleural Effusion ESRD on HD Mild hyponatremia Hypertension Hyperlipidemia ANDRY Hospital Course acute on chronic hypoxemic respiratory failure volume overload secondary to ESRD and severe diastolic CHF Paroxysmal afib, chronic h/o CAD s/p CABG h/o endocarditis s/p MV & TV repair 06/2021 severe tricuspid regurgitation, severe pulmonary hypertension Troponins elevated x3. Last stress test was negative for ischemia back in June 2022. Elevated troponin deemed to be secondary to demand ischemia acute on chronic hypoxemia likely multifactorial Initially suspected to be secondary to volume overload and chronic right pleural effusion. Patient has undergone several days of hemodialysis and looks euvolemic. Pleural effusion primarily causing the acute respiratory failure cardiology consulted for assistance with NSTEMI, severe TR, severe pulm htn; h/o endocarditis and MV/TV repair 06/2021 TTE (09/22/22) 45-50% LVEF mild global hypokinesis, severely dilated RV with moderate dysfunction, severe TR, moderate pulmonic insufficiency LAE, severe diastolic dysfunction, moderate pulm hypertension with RVSP of 55-60mmHG started IV amiodarone (09/22 evening) per cardiology; transtioned to PO 09/23 Heart rate improved. currently on 5 LNC. possible NIMCO-guided cardioversion per cardio in the near future patient states she was taken off anticoagulation due to bleeding - of dialysis sites, had to be emergently transferred for vascular surgery in the past does not take any anticoagulation, nor aspirin at home for > 1year She has been started on low-dose Eliquis by cardiology. Chronic loculated R Pleural Effusion CXR (09/20): Chronic loculated moderate right pleural effusion Chest u/s (09/21): Pleural effusion, with component of possible loculation versus cystic lung parenchymal changes CTA chest (09/22): No evidence of pulmonary thromboembolism. CXR (09/24): stable Moderate loculated right pleural effusion with atelectasis/infiltrate right lung base. Mild to moderate CHF pattern is suspected Pulmonology at this point recommend CT surgery evaluation for pleural decortication no antibiotics, does not suspect infection Transfer to [facility] to be evaluated by CT surgery initiated. Patient has been accepted for transfer. ESRD Hyponatremia Nephrology followed and managed with hemodialysis. Hyponatremia management with hemodialysis. Hypertension. Stable. Continued home medications Hyperlipidemia. Continued statin. ANDRY. Continued home medication. Vital Signs/Physical Exam: Temp Pulse Resp BP Pulse Ox 96.8 F 70 16 114/66 91 09/30/22 08:00 09/30/22 08:33 09/30/22 08:00 09/30/22 08:33 09/30/22 08:00 General: Alert, In no apparent distress, Oriented x3 HEENT: Other (Oxygen by nasal cannula) Neck: Supple, JVD not distended Respiratory: Clear to auscultation bilaterally, Normal air movement Cardiovascular: Normal S1 S2, Irregular heart rate/rhythm Capillary refill: <2 Seconds Gastrointestinal: Normal bowel sounds, Soft and benign, Non-distended, No tenderness Musculoskeletal: No swelling, No tenderness Integumentary: No rashes, No cyanosis Neurological: Normal strength at 5/5 x4 extr Laboratory Data at Discharge: WBC 3.50 thou/uL (4.3-10.9) L 09/29/22 05:36 Hgb 10.8 g/dL (12.0-15.0) L 09/29/22 05:36 Hct 33.7 % (36.0-45.0) L 09/29/22 05:36 Plt Count 98 thou/uL (152-406) L 09/29/22 05:36 PT 15.8 SECONDS (9.5-12.5) H 09/20/22 12:05 INR 1.44 09/20/22 12:05 Sodium 128 mEq/L (136-145) L 09/29/22 05:36 Potassium 5.2 mEq/L (3.5-5.1) H D 09/29/22 05:36 BUN 65 mg/dL (7-18) H 09/29/22 05:36 Creatinine 6.13 mg/dL (0.55-1.02) H 09/29/22 05:36 Glucose 101 mg/dL (74-106) 09/29/22 05:36 Phosphorus 6.3 mg/dL (2.5-4.9) H 09/29/22 05:36 Magnesium 2.5 mg/dL (1.6-2.4) H 09/29/22 05:36 Total Bilirubin 0.7 mg/dL (0.2-1.0) 09/24/22 03:35 AST 24 U/L (15-37) 09/24/22 03:35 ALT 21 U/L (13-56) 09/24/22 03:35 Alkaline Phosphatase 130 U/L (45-117) H 09/24/22 03:35 Home Medications: Sucroferric Oxyhydroxide [Velphoro] 1,000 mg PO TIDWM 04/01/22 Metoprolol Tartrate 100 mg PO BID 05/31/22 Dicyclomine HCl 20 mg PO QID PRN 07/21/22 Acetaminophen [Tylenol*] 650 mg PO Q6H PRN tab 09/30/22 Amiodarone HCl [Cordarone*] 200 mg PO BID tab 09/30/22 Apixaban [Eliquis *] 2.5 mg PO BID 09/30/22 Followup: NONE,NONE [Primary Care Provider] - Time spent managing pt's care (in minutes): 36
[2022-09-30 09:47] VITALS: O2SAT 92
--- NOTE | 2022-09-30 12:07 | PN ---
Date of Progress Note: 09/30/2022 Subjective: The patient was admitted with shortness of breath, pleural effusion. The patient being dialyzed and challenged. Her pleural effusion did not resolve, CT showing localized. Physical Examination: Vital Signs: Blood pressure 114/66, pulse of 70, afebrile. Chest: Decreased entry on the right base. Heart: S1, S2. Systolic murmur. Abdomen: Soft, nontender. Extremities: Trace edema. Neurologic: Alert. No focality. Laboratory Data: Hemoglobin 10.8. Sodium 128, potassium 5.2, bicarb 25, BUN 65, creatinine 6.1, yoel cium 8.4, phosphorus 6.3. Current Medications: The patient on include; 1.Morphine. 2.Eliquis. 3.Amiodarone. Assessment And Plan: 1.End-stage renal disease with over volume. We will continue to challenge the patient. 2.Secondary hyperparathyroidism. We will monitor. 3.Anemia of chronic kidney disease. Continue MELA. 4.Pleural effusion, localized. I reviewed the record. We discussed the case with Dr. Cartagena, alexander purvis that the patient needs decortication. We spoke with [facility], spoke to the cardiothoracic surgeon, pl an to transfer for decortication. 5.Over volume. We will continue to challenge. 6.Hyperkalemia, resolved. 7.Hyponatremia, resolved. Time spent examining the patient [id number], reviewing the data, discussing the case with Dr. Chantel brothers, discussing the case with transfer center and Cardiothoracic, placing orders, discussing the case with the hospitalist more tania n 35 minutes. LEIGHANN Voice ID: [id number] Report ID: [id number]
--- NOTE | 2022-09-30 13:59 | P.PN ---
Subjective Date of Service: 09/29/22 Chief Complaint: Shortness of breath right-sided multiloculated effusion It was improving then became worse developed more hypoxemia her oxygen requirements have increased denies any chest pain fever or chills seen by nephrology Review of Systems General: Weakness Respiratory: Shortness of Breath Physical Examination - Vital Signs Temperature: 96.8 F Blood Pressure: 114/66 Pulse: 70 Respirations: 16 Pulse Ox (%): 91 - Physical Exam General: Alert, Oriented x3 Respiratory: Clear to auscultation bilaterally, Diminished (Managed on the right side) Cardiovascular: No edema, Regular rate/rhythm Assessment And Plan - Current Problems (Diagnosis) (1) Loculated pleural effusion Status: Acute Plan: Patient is 67 years of age has chronic right-sided loculated effusion requiring more oxygen right now patient CT scan did not show any evidence of thromboemb olism patient has chronic renal failure is on dialysis evidence of an infection probably has a trapped lung multiloculated effusion agree with transfer to a tertiary care facility for a decortication signs are stable she is on 5 L of nasal cannula oxygen able for transfer discussed with the hospitalist and nephrology Physician Review: Patient Assessed, Agree with Above Assessment and Plan
== END 2022-09-30 10:41 | disposition short-term general hospital (02) | DRG 291 ==
LOC: ER 11:10 → ERHOLD 16:05 → 2ND 17:25 → 3RD-ICU 09-21 13:33 → 4TH 09-23 21:35
PROVIDERS: ADMIT Internal Medicine; ATTEND Internal Medicine
DX: I13.2 Hypertensive heart and chronic kidney disease with heart failure and with stage 5 chronic kidney disease, or end stage renal disease (principal); I50.33 Acute on chronic diastolic (congestive) heart failure; N18.6 End stage renal disease; J96.21 Acute and chronic respiratory failure with hypoxia; E87.1 Hypo-osmolality and hyponatremia; D61.818 Other pancytopenia; N25.81 Secondary hyperparathyroidism of renal origin; I24.8 Other forms of acute ischemic heart disease; E11.22 Type 2 diabetes mellitus with diabetic chronic kidney disease; E11.40 Type 2 diabetes mellitus with diabetic neuropathy, unspecified; D63.1 Anemia in chronic kidney disease; I48.0 Paroxysmal atrial fibrillation; E78.5 Hyperlipidemia, unspecified; K21.9 Gastro-esophageal reflux disease without esophagitis; D50.9 Iron deficiency anemia, unspecified; I27.20 Pulmonary hypertension, unspecified; N25.0 Renal osteodystrophy; I08.1 Rheumatic disorders of both mitral and tricuspid valves; E87.5 Hyperkalemia; I25.10 Atherosclerotic heart disease of native coronary artery without angina pectoris; R77.8 Other specified abnormalities of plasma proteins; I25.2 Old myocardial infarction; Z99.2 Dependence on renal dialysis; Z95.1 Presence of aortocoronary bypass graft; Z95.0 Presence of cardiac pacemaker; Z79.82 Long term (current) use of aspirin; Z98.51 Tubal ligation status; Z86.16 Personal history of COVID-19; Z79.899 Other long term (current) drug therapy
CPT/HCPCS: 36415; 36600; 71045; 71275; 74176; 76377; 76604; 80048; 80053; 80069; 82010; 82805; 82947; 83605; 83735; 83880; 84100; 84439; 84443; 84484; 85025; 85027; 85610; 86704; 86705; 86706; 86803; 87040; 87340; 90935; 93005; 93306; 94660; 94760; 96374; 96375; 99285; J0282; J1644; J1815; J2270; J2405; J7060; Q9967